=== PATIENT | female | born 1960 | race Caucasian/White ===

== ENCOUNTER 2023-01-26 13:22 | Outpatient (OUT) | payer MEDICARE, SELFPAY ==
--- NOTE | 2023-01-26 13:25 | XR_ITS ---
The [address] [address] Patient Name: AISLINN CARNES MRN: [id number] date: 1960 Sex: F Assigned Patient Location: [facility] Current Patient Location: [facility] Accession/Order Number: [id number] Exam Date: 01/26/2023 13:30 Report Date: 01/27/2023 06:59 At the request of: LISA VLEOZ Procedure: XR foot LT min 3V PROCEDURE: XR foot LT min 3V HISTORY: LEFT FOOT PAIN COMPARISON: XR foot left 01/03/2023 FINDINGS: BONES:Prior resection of first toe at level of mid metatarsal. Ongoing subacute healing fractures of the third proximal phalanx and fifth metatarsal. Slightly more chronic healing fractures involving the second, third, and fourth metatarsals at their base. Old healed fracture of the mid second metatarsal. Prior medial malleolus repair via 2 lag screws. SOFT TISSUES:No visible soft tissue swelling. EFFUSION:None visible. OTHER: Negative. IMPRESSION: 1. Multiple healing fractures which appear stable in alignment. Electronically authenticated by: THANH DELVALLE Date: 01/27/2023 06:59
== END 2023-01-26 13:23 ==
PROVIDERS: PCP Nurse Practitioner; Visit Provider Podiatrist Foot & Ankle Surgery
DX: S92.302 Fracture of unspecified metatarsal bone(s), left foot (principal)
CPT/HCPCS: 73630

== ENCOUNTER 2023-02-13 07:41 | Outpatient (OUT) | payer MEDICARE, SELFPAY ==
[2023-02-13 08:00] VITALS: BP 96/57; PULSE 70; RESP 18; TEMP 36.3; O2SAT 94
[2023-02-13 08:09] LABS: Estimated GFR (African America 35 (>=60); Estimated GFR (Non-African Ame 29 (>=60)
[2023-02-13] MEDS: 0.9 % SODIUM CHLORIDE 1,000 ML 100 ML IV (08:25)
--- NOTE | 2023-02-13 12:46 | PC.NURSE ---
Pt was here for infusion prior to her CT scan. She denies any complaints, she tolerated IV start well and tolerated fluids well without difficulty. IV was discontinued and patient discharged.
--- NOTE | 2023-02-13 14:05 | CT_ITS ---
[address] [address] Patient Name: AISLINN CARNES MRN: [id number] date: 1960 Sex: F Assigned Patient Location: LAB Current Patient Location: LAB Accession/Order Number: [id number] Exam Date: 02/13/2023 15:23 Report Date: 02/13/2023 16:43 At the request of: MONIE TAVAREZ Procedure: CT abdomen pelvis wo/w con EXAM: CT abdomen pelvis wo/w con HISTORY: Chronic kidney disease stage 3 N18.30, UTI N39.0, N20.1 COMPARISON: None. TECHNIQUE: Axial CT images were obtained of the abdomen and pelvis without and with intravenous contrast. The postcontrast images were obtained in the delayed phase. Multiplanar reconstructions were performed. ABDOMEN/PELVIS FINDINGS: Lower Chest: Unremarkable. Liver: Normal enhancement and contour. Liver is enlarged measuring 18.7 cm. Biliary/Gallbladder: Prior cholecystectomy. Pancreas: Unremarkable. Spleen: Unremarkable. Adrenal Glands: Unremarkable. Kidneys: There is a cystic lesion in the left kidney arising exophytically from the lower pole the left kidney measuring 9.4 x 6.8 cm which previously measured 7.2 x 5.8 cm. There are multiple septations throughout the lesion without appreciable enhancement or nodularity. The right kidney is malrotated. Gastrointestinal/Peritoneum: No acute abnormality. The appendix is unremarkable. No free air or free fluid. Vascular: Moderate atherosclerotic calcifications are present. Lymph Nodes: A left inguinal lymph node is enlarged measuring 1.1 cm in short axis. Pelvic Organs: Unremarkable. Bladder: Unremarkable. Bones: There is a chronic vertebral compression fracture at the superior endplate of L1. Mild multilevel degenerative changes are present in the visualized spine. Soft tissues: There is a small fat-containing right inguinal hernia. IMPRESSION: 1. A large exophytic cystic lesion arising from the lower pole the left kidney does not demonstrate internal enhancement or nodularity, Bosniak II. The lesion is slightly increased in size since the 2014 exam. 2. Mildly enlarged left inguinal lymph node, which is nonspecific, but possibly reactive. 3. Prior cholecystectomy. 4. Mild hepatomegaly. 5. Small fat-containing right inguinal hernia. 6. Chronic vertebral compression fracture at L1. Electronically authenticated by: BRENTON AYALA Date: 02/13/2023 16:43
== END 2023-02-13 07:42 | disposition home or self-care (01) ==
LOC: LAB 07:42
PROVIDERS: PCP Nurse Practitioner; Visit Provider Urology
DX: N20.1 Calculus of ureter (principal); N39.0 Urinary tract infection, site not specified; R81 Glycosuria; N28.1 Cyst of kidney, acquired; N18.32 Chronic kidney disease, stage 3b
CPT/HCPCS: 36415; 74178; 82565; Q9966

== ENCOUNTER 2023-02-14 11:06 | Outpatient (OUT) | payer MEDICARE, SELFPAY ==
--- NOTE | 2023-02-14 11:07 | XR_ITS ---
The [address] [address] Patient Name: AISLINN CARNES MRN: [id number] date: 1960 Sex: F Assigned Patient Location: [facility] Current Patient Location: [facility] Accession/Order Number: [id number] Exam Date: 02/14/2023 11:07 Report Date: 02/14/2023 14:25 At the request of: CAMMIE SEGURA Procedure: XR foot LT min 3V EXAM: XR foot LT min 3V HISTORY: LEFT FOOT PAIN COMPARISON: Left foot radiographs 01/26/2023 TECHNIQUE: 3 views of the left foot. FINDINGS: Procedure change from partial amputation of the first digit at the level of the mid metatarsal. Distal tibial screws appear grossly intact. Slight interval healing of the second proximal phalangeal fracture, with otherwise unchanged appearance of the second through fifth metatarsal fractures in unchanged alignment. No acute fractures are identified. No dislocation. Degenerative change, predominantly involves the midfoot joints. Soft tissue swelling about the visualized lower extremity, overall similar to previous exam. IMPRESSION: 1. Slight interval healing of the second proximal phalangeal fracture. 2. Unchanged appearance of the second through fifth metatarsal fractures, in unchanged alignment. Electronically authenticated by: MAR MILES Date: 02/14/2023 14:25
== END 2023-02-14 11:07 | disposition home or self-care (01) ==
PROVIDERS: PCP Nurse Practitioner; Visit Provider Physician Assistant
DX: S92.302 Fracture of unspecified metatarsal bone(s), left foot (principal)
CPT/HCPCS: 73630

== ENCOUNTER 2023-03-07 14:48 | Outpatient (OUT) | payer MEDICARE, SELFPAY ==
--- NOTE | 2023-03-07 15:05 | XR_ITS ---
[address] [address] Patient Name: AISLINN CARNES MRN: [id number] date: 1960 Sex: F Assigned Patient Location: Current Patient Location: Accession/Order Number: [id number] Exam Date: 03/07/2023 15:04 Report Date: 03/07/2023 18:47 At the request of: RAMON HUNTLEY Procedure: XR foot ALINE min 3V EXAMINATION: XR foot ALINE min 3V HISTORY: LEFT FOOT PAIN COMPARISON: 02/14/2023, 09/21/2022 FINDINGS: RIGHT FINDINGS: BONES: Normal. No significant arthropathy or acute abnormality. Mild enthesopathic spurring at the Achilles insertion. Mild degenerative change first metatarsal-phalangeal joint SOFT TISSUES: Negative. No visible soft tissue swelling. OTHER: Negative. LEFT FINDINGS: BONES: Remote resection of the first toe mid diaphysis of the metatarsal. Remote healed fracture second metatarsal. Remote fracture mid diaphysis of the fifth metatarsal with incomplete bony bridging SOFT TISSUES: Negative. No visible soft tissue swelling. OTHER: Negative. XR/XR foot ALINE min 3V IMPRESSION: RIGHT CONCLUSION: No acute abnormality LEFT CONCLUSION: Incomplete bony bridging fifth metatarsal fracture Electronically authenticated by: NUBIA NICHOLSON Date: 03/07/2023 18:47
== END 2023-03-07 14:49 | disposition home or self-care (01) ==
LOC: WC 14:48
PROVIDERS: PCP Nurse Practitioner; Visit Provider Podiatrist Foot & Ankle Surgery
DX: M79.671 Pain in right foot (principal); M79.672 Pain in left foot; E11.621 Type 2 diabetes mellitus with foot ulcer; L97.411 Non-pressure chronic ulcer of right heel and midfoot limited to breakdown of skin; L97.422 Non-pressure chronic ulcer of left heel and midfoot with fat layer exposed; S92.322D Displaced fracture of second metatarsal bone, left foot, subsequent encounter for fracture with routine healing; S92.342D Displaced fracture of fourth metatarsal bone, left foot, subsequent encounter for fracture with routine healing; M86.172 Other acute osteomyelitis, left ankle and foot; E11.69 Type 2 diabetes mellitus with other specified complication; E11.65 Type 2 diabetes mellitus with hyperglycemia; I79.8 Other disorders of arteries, 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
CPT/HCPCS: 11042; 73630

== ENCOUNTER 2023-03-15 10:55 | Outpatient (OUT) | payer MEDICARE, SELFPAY | END 2023-03-15 10:56 | disposition home or self-care (01) | LOC: WC 10:55 | PROVIDERS: PCP Nurse Practitioner; Visit Provider Podiatrist Foot & Ankle Surgery | DX: E11.621 Type 2 diabetes mellitus with foot ulcer (principal); L97.411 Non-pressure chronic ulcer of right heel and midfoot limited to breakdown of skin; L97.422 Non-pressure chronic ulcer of left heel and midfoot with fat layer exposed | CPT/HCPCS: 11042 ==

== ENCOUNTER 2023-03-21 09:24 | Outpatient (OUT) | payer MEDICARE, SELFPAY ==
[2023-03-21 09:56] LABS: Alanine Aminotransferase 16 U/L (14-59); Albumin Globulin Ratio 0.6; Albumin Level 3.1 g/dL (3.4-5.0); Alkaline Phosphatase 139 U/L (46-116); Anion Gap 12.3; Aspartate Amino Transferase 8 U/L (15-37); BUN Creatinine Ratio 17.4; Bilirubin Direct 0.1 mg/dL (0.0-0.2); Bilirubin Total 0.3 mg/dL (0.2-1.0); Calcium 9.3 mg/dL (8.5-10.1); Carbon Dioxide 26.5 mmol/L (21.0-32.0); Chloride 97 mmol/L (98-107); Estimated GFR (African America 41 (>=60); Estimated GFR (Non-African Ame 34 (>=60); Globulin 5.5 g/dL; Glucose 345 mg/dL (74-106); Potassium 4.8 mmol/L (3.5-5.1); Sodium 131 mmol/L (136-145); Total Protein 8.6 g/dL (6.4-8.2)
[2023-03-21 10:34] LABS: Estimated Average Glucose 413 mg/dL; Glycohemoglobin A1C >16.0 % (4.5-6.2)
--- NOTE | 2023-03-21 10:35 | CA_ITS ---
Patient: AISLINN CARNES Exam Date: 03/21/2023 : 1960 Gender:F Ordering : KIARA AGUSTOSahara LÓPEZ [facility] Admission #: [id number] Family : Order #: [id number] CLICK HERE TO VIEW EXAM ECHOCARDIOGRAM REPORT PROCEDURE: CA ECHO DOPPLER COMPLETE INDICATIONS: Mitral valve prolapse, Chest pain COMPARISON: None. DESCRIPTION: COMPLETE ECHOCARDIOGRAM Real-time transthoracic echocardiography with 2D, M-mode, spectral and color flow Doppler performed. QUALITY: Technical quality was good. LEFT VENTRICLE: Normal chamber size. Moderate concentric left ventricular hypertrophy. Global left ventricular systolic function is normal. LV EF: Estimated left ventricular ejection fraction is 70%. DIASTOLIC: Diastolic function is indeterminate. ATRIAL SEPTUM: LEFT ATRIUM: Mild dilatation. RIGHT ATRIUM: Normal chamber size. RIGHT VENTRICLE: Normal chamber size. Normal right ventricular systolic function. TRICUSPID VALVE: Normal mobility and thickness. No stenosis with trivial regurgitation. No evidence of pulmonary hypertension. RVSP 25 mmHg MITRAL VALVE: Normal mobility and thickness. No mitral valve prolapse. No evidence of mitral valve stenosis. There is no mitral annular calcification. Trivial mitral regurgitation. AORTIC VALVE: Normal trileaflet appearance. No visible sclerosis. Normal leaflet mobility. No evidence of aortic valve stenosis. No aortic regurgitation. AORTIC ROOT: Normal diameter and appearance. PULMONIC VALVE: Normal thickness and mobility. No stenosis. No regurgitation. PERICARDIUM: Trivial pericardial effusion. IVC: Collapses with inspirations. Normal size. PLEURA: CONCLUSION: 1. Moderate concentric left ventricular hypertrophy with normal systolic function. LVEF is 70%. 2. Normal right ventricular size and systolic function. 3. No significant valvular dysfunction. 4. No evidence of mitral valve prolapse. 5. Normal right-sided pressures. 6. Trivial pericardial effusion. Adult Echocardiography Procedure Report Left Ventricle LVEDD (3.7 - 5.6 cm): 3.53 cm LVESD (2.2 - 4.0 cm): 2.20 cm LVIVS thickness (0.6 - 1.2 cm): 1.47 cm LVPW thickness (0.5 - 1.0 cm): 1.37 cm e': 0.06 m/s E - e': 9.60 LVOT Max Gradient: 3.95 mm[Hg] LVOT Area (cm2): 0.99 m/s Peak Velocity (LVOT): 0.99 m/s Mean Velocity (LVOT): 0.72 m/s LVOT Diameter 1.72 cm Left Ventricular Ejection Fraction: 70 % Left Atrium LA Volume Index (2D A2C): 31.37 ml/m2 Left Atrium Systolic Dimension: 3.63 cm Mitral Valve MV E to A Ratio: 0.71 Mitral Valve A-Wave Peak Velocity: 0.87 m/s Mitral Valve E-Wave Peak Velocity: 0.62 m/s Right Ventricle RV Internal Diastolic Dimension: 2.76 cm Aorta AO Root Diam: 2.96 cm Ascending Ao Diam: 2.66 cm Aortic Valve AoV Area (Peak Serg): 1.48 cm2, 1.48 cm2 AoV Area (VTI): 1.44 cm2, 1.44 cm2 Peak Velocity(Antegrade Flow): 1.56 m/s Peak Gradient(Antegrade Flow): 9.71 mm[Hg] Mean Velocity(Antegrade Flow): 1.09 m/s Mean Gradient(Antegrade Flow): 5.40 mm[Hg] Velocity Time Integral: 37.54 cm Tricuspid Valve Peak Velocity (Regurgitant Flow): 1.80 m/s, 2.32 m/s Pulmonic Valve Mean Gradient: 2.41 mm[Hg], 2.39 mm[Hg] Mean Velocity: 0.74 m/s, 0.73 m/s Peak Velocity: 1.00 m/s Peak Gradient: 3.87 mm[Hg], 4.14 mm[Hg] Right Atrium Right Atrium Systolic Pressure: 26.58 ml, 26.58 ml Dictated by: Galo Young M.D. on 03/21/2023 at 14:37 Approved by: Galo Young M.D. on 03/21/2023 at 14:42
== END 2023-03-21 09:25 | disposition home or self-care (01) ==
LOC: CARD 09:28
PROVIDERS: PCP Nurse Practitioner; Visit Provider Nurse Practitioner
DX: I34.1 Nonrheumatic mitral (valve) prolapse (principal); R07.9 Chest pain, unspecified; E11.40 Type 2 diabetes mellitus with diabetic neuropathy, unspecified; B35.1 Tinea unguium
CPT/HCPCS: 36415; 80048; 80076; 83036; 93306

== ENCOUNTER 2023-03-24 09:59 | Outpatient (OUT) | payer MEDICARE, SELFPAY | END 2023-03-24 10:00 | disposition home or self-care (01) | LOC: WC 09:59 | PROVIDERS: PCP Nurse Practitioner; Visit Provider Podiatrist Foot & Ankle Surgery | DX: E11.621 Type 2 diabetes mellitus with foot ulcer (principal); L97.422 Non-pressure chronic ulcer of left heel and midfoot with fat layer exposed; L97.411 Non-pressure chronic ulcer of right heel and midfoot limited to breakdown of skin | CPT/HCPCS: 11042; A6213 ==

== ENCOUNTER 2023-03-27 08:34 | Outpatient (OUT) | payer MEDICARE, SELFPAY | END 2023-03-27 08:35 | disposition home or self-care (01) | LOC: WC 08:36 | PROVIDERS: PCP Nurse Practitioner; Visit Provider Podiatrist Foot & Ankle Surgery | DX: E11.621 Type 2 diabetes mellitus with foot ulcer (principal); L97.422 Non-pressure chronic ulcer of left heel and midfoot with fat layer exposed | CPT/HCPCS: 29445; A6021; A6213 ==

== ENCOUNTER 2023-04-04 14:27 | Outpatient (OUT) | payer MEDICARE, SELFPAY ==
--- NOTE | 2023-04-04 | XR_ITS ---
The [address] [address] Patient Name: AISLINN CARNES MRN: [id number] date: 1960 Sex: F Assigned Patient Location: Current Patient Location: Accession/Order Number: [id number] Exam Date: 04/04/2023 14:55 Report Date: 04/05/2023 05:22 At the request of: RAMON HUNTLEY Procedure: XR foot LT min 3V PROCEDURE: XR foot LT min 3V HISTORY: Left foot pain COMPARISON: XR foot left 02/14/2023 FINDINGS: BONES:Stable partial ossification, but incomplete healing of the second proximal phalanx fracture, distal fifth metatarsal fracture, and second through fourth base of metatarsal fractures. Remote, healed distal second metatarsal fracture. Prior amputation of first toe at level of mid metatarsal. Remote medial malleolus repair via 2 lag screws. SOFT TISSUES:No visible soft tissue swelling. EFFUSION:None visible. OTHER: Negative. XR/XR foot LT min 3V IMPRESSION: 1. Stable appearance of multiple fractures with incomplete osseous healing. Electronically authenticated by: THANH DELVALLE Date: 04/05/2023 05:22
== END 2023-04-04 14:28 | disposition home or self-care (01) ==
LOC: WC 14:27
PROVIDERS: PCP Nurse Practitioner; Visit Provider Podiatrist Foot & Ankle Surgery
DX: E11.621 Type 2 diabetes mellitus with foot ulcer (principal); L97.422 Non-pressure chronic ulcer of left heel and midfoot with fat layer exposed; L97.411 Non-pressure chronic ulcer of right heel and midfoot limited to breakdown of skin
CPT/HCPCS: 29445; 73630; A6213

== ENCOUNTER 2023-04-10 14:12 | Outpatient (OUT) | payer MEDICARE, SELFPAY | END 2023-04-10 14:13 | disposition home or self-care (01) | LOC: WC 14:12 | PROVIDERS: PCP Nurse Practitioner; Visit Provider Physician Assistant | DX: E11.621 Type 2 diabetes mellitus with foot ulcer (principal); L97.411 Non-pressure chronic ulcer of right heel and midfoot limited to breakdown of skin; L97.422 Non-pressure chronic ulcer of left heel and midfoot with fat layer exposed | CPT/HCPCS: 11042; 29445 ==

== ENCOUNTER 2023-04-18 10:56 | Outpatient (OUT) | payer MEDICARE, SELFPAY | END 2023-04-18 10:57 | disposition home or self-care (01) | LOC: WC 10:57 | PROVIDERS: PCP Nurse Practitioner; Visit Provider Physician Assistant | DX: E11.621 Type 2 diabetes mellitus with foot ulcer (principal); L97.422 Non-pressure chronic ulcer of left heel and midfoot with fat layer exposed; L97.411 Non-pressure chronic ulcer of right heel and midfoot limited to breakdown of skin | CPT/HCPCS: 11042; 29445 ==

== ENCOUNTER 2023-04-25 15:07 | Outpatient (OUT) | payer MEDICARE, SELFPAY | END 2023-04-25 15:08 | disposition home or self-care (01) | LOC: WC 15:08 | PROVIDERS: PCP Nurse Practitioner; Visit Provider Podiatrist Foot & Ankle Surgery | DX: E11.621 Type 2 diabetes mellitus with foot ulcer (principal); L97.411 Non-pressure chronic ulcer of right heel and midfoot limited to breakdown of skin; L97.422 Non-pressure chronic ulcer of left heel and midfoot with fat layer exposed | CPT/HCPCS: 11042 ==

== ENCOUNTER 2023-05-09 15:24 | Outpatient (OUT) | payer MEDICARE, SELFPAY ==
[2023-05-09 15:57] LABS: Anion Gap 14.8; BUN Creatinine Ratio 19.9; Calcium 8.6 mg/dL (8.5-10.1); Carbon Dioxide 22.3 mmol/L (21.0-32.0); Chloride 102 mmol/L (98-107); Estimated GFR (African America 39 (>=60); Estimated GFR (Non-African Ame 32 (>=60); Glucose 258 mg/dL (74-106); Potassium 5.1 mmol/L (3.5-5.1); Sodium 134 mmol/L (136-145)
== END 2023-05-09 15:25 | disposition home or self-care (01) ==
LOC: LAB 15:27
PROVIDERS: PCP Nurse Practitioner; Visit Provider Nurse Practitioner
DX: M81.0 Age-related osteoporosis without current pathological fracture (principal)
CPT/HCPCS: 36415; 80048

== ENCOUNTER 2023-05-10 07:37 | Outpatient (RCR) | payer MEDICARE, SELFPAY ==
[2023-05-10 09:58] VITALS: BP 193/88; PULSE 76; RESP 16; TEMP 36.2; O2SAT 99
--- NOTE | 2023-05-10 09:58 | PC.NURSE ---
0958: Pt. to [facility] amb. for Prolia injection. Seated in recliner. VSS. Denies questions regarding medication.
[2023-05-10] MEDS: DENOSUMAB 60 MG/ML SYRINGE SUBQ (10:21)
--- NOTE | 2023-05-10 10:40 | PC.NURSE ---
1021: Pt. medicated with Prolia 60mg SQ to right arm. Pt. denies c/o. Drinking juice. 1040: Pt. denies c/o adverse reaction. D/c'd amb to home.
== END 2023-05-20 23:59 | disposition home or self-care (01) ==
LOC: INF 07:37
PROVIDERS: PCP Nurse Practitioner; Visit Provider Nurse Practitioner
DX: M81.0 Age-related osteoporosis without current pathological fracture (principal)
CPT/HCPCS: 96372; J0897

== ENCOUNTER 2023-05-12 09:34 | Outpatient (OUT) | payer MEDICARE, SELFPAY | END 2023-05-12 09:35 | disposition home or self-care (01) | LOC: WC 09:35 | PROVIDERS: PCP Nurse Practitioner; Visit Provider Podiatrist Foot & Ankle Surgery | DX: E11.621 Type 2 diabetes mellitus with foot ulcer (principal); L97.411 Non-pressure chronic ulcer of right heel and midfoot limited to breakdown of skin; L97.422 Non-pressure chronic ulcer of left heel and midfoot with fat layer exposed | CPT/HCPCS: 97597 ==

== ENCOUNTER 2023-05-12 09:59 | Outpatient (OUT) | payer MEDICARE, SELFPAY ==
--- NOTE | 2023-05-12 | XR_ITS ---
The [address] [address] Patient Name: AISLINN CARNES MRN: [id number] date: 1960 Sex: F Assigned Patient Location: Current Patient Location: Accession/Order Number: [id number] Exam Date: 05/12/2023 10:05 Report Date: 05/12/2023 14:07 At the request of: RAMON HUNTLEY Procedure: XR foot LT min 3V EXAM: XR foot LT min 3V HISTORY: LEFT FOOT PAIN COMPARISON: None. TECHNIQUE: 3 views left foot. FINDINGS: Remote amputation of the first ray at the level of the first metatarsal shaft. Old chronic healed deformities of the second through fifth metatarsals and the second proximal phalanx. No acute fracture or bone destruction. No significant soft tissue swelling. Degenerative change throughout the IP joints and midfoot. Prior postoperative change at the medial malleolus. XR/XR foot LT min 3V IMPRESSION: No acute process seen. MRI could be obtained if indicated. Electronically authenticated by: FARZANA RADER Date: 05/12/2023 14:07
== END 2023-05-12 10:00 | disposition home or self-care (01) ==
PROVIDERS: PCP Nurse Practitioner; Visit Provider Podiatrist Foot & Ankle Surgery
DX: M79.672 Pain in left foot (principal)
CPT/HCPCS: 73630

== ENCOUNTER 2023-05-12 10:32 | Emergency (ER) | payer MEDICARE, SELFPAY ==
[2023-05-12 10:36] VITALS: BP 176/90; PULSE 72; RESP 18; O2SAT 99; BMI 25.8
--- NOTE | 2023-05-12 11:23 | XR_ITS ---
The [address] [address] Patient Name: AISLINN CARNES MRN: [id number] date: 1960 Sex: F Assigned Patient Location: ER Current Patient Location: ER Accession/Order Number: [id number] Exam Date: 05/12/2023 11:15 Report Date: 05/12/2023 11:53 At the request of: JE GODDARD Procedure: XR hand RT min 3V STUDY: XR hand RT min 3V, [id number] HISTORY: swelling COMPARISON: None FINDINGS: No acute fracture, dislocation, or suspicious osseous lesion. No osteolysis to suggest osteomyelitis. No soft tissue gas. No radiopaque foreign body. 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 XR/XR hand RT min 3V IMPRESSION: No acute osseous abnormality. Electronically authenticated by: KYLER PRUITT Date: 05/12/2023 11:53
[2023-05-12 11:47] VITALS: BP 156/100; PULSE 86; RESP 16; O2SAT 98
[2023-05-12] MEDS: CEFAZOLIN SODIUM 1,000 MG, WATER FOR INJECTION,STERILE 2.5 ML IM ×2 (13:30→13:32)
--- NOTE | 2023-05-12 13:40 | ED_ITS ---
HPI - General Adult General Chief complaint: Extremity Problem, Nontraumatic Stated complaint: SPIDER BITE Time Seen by Provider: 05/12/23 13:08 History of Present Illness HPI narrative: Patient is a 63-year-old female who is presenting to the Emergency Room with left 5th pinky blister that is infected. Patient woke up Monday noticing that she had a blister on the fat pad over her distal phalanx her left 5th finger there was clear/yellowish. Patient did pop the blister several times during the fluid out. The fluid had been draining throughout the day. Patient started developing redness and swelling to the middle and distal phalanx of the left 5th finger. Patient is not diabetic. Patient was cleaning out the basement Monday night, patient believes that she was bit by some type of spider possibly. Patient never saw a spider bite her. Patient never had any pain Mon night. Patient woke up Monday with a blister over the volar aspect of the distal left 5th finger. Patient denies any type of trauma. Patient denies any type of burn. Patient does have good range of motion of the left 5th finger with no pain. Patient states she broke her left 5th finger months ago, and still has slight deformity from that break, but she is noting pain today. . All systems are negative except as noted/marked. All systems reviewed and otherwise negative. . Nurses note and vital signs reviewed and patient is not hypoxic. General: The patient appears well and in no apparent distress. Patient is resting comfortably on cart. Patient is not toxic, lethargic, or listless Skin: Warm, dry, no pallor noted. There is no rash noted. No petechiae, purpura. Head: Normocephalic, atraumatic Eye: Normal conjunctiva, no drainage, EOMI. PERRL Ears, Nose, Mouth, and Throat: oral mucosa is moist. Nares patent. Mouth without vesicles. Cardiovascular: Regular Rate and Rhythm, no murmur, gallop, rub Respiratory: Patient is in no distress, no accessory muscle use, lungs are clear to auscultation, no wheezing, rales or rhonchi Musculoskeletal: Patient has full range of motion of all of the extremities, Including the left 5th pinky finger. Patient broke her finger several months ago, patient has normal range of motion today and this week, the same she had last week to her left 5th finger after her break, the range of motion is still the same today. Patient does have mild swelling to the middle and distal aspect of the left 5th finger, however she has good range of motion of the PIP and DIP joint for her normal baseline after she fractured the finger several months ago. Patient has no signs of necrosis. Patient has a blister over the fat pad of the distal aspect of the left 5th finger, volar aspect. Patient has no drainage. No palpable abscess. Patient has exposed skin with good granulation. There does appear to be an infection, but there is no [place] signs, no signs of significant joint infection, no signs of septic joint, this seems to be localized soft tissue infection and swelling. Patient again adamantly denies any type of trauma or burn to this finger. No motor, sensory, or focal neurological deficits. Neurological: A&O x3, normal speech Psychiatric: Cooperative Related Data Home Medications Medication Instructions Recorded Confirmed ferrous sulfate 325 mg (65 mg 325 mg PO QDAY 05/12/23 05/12/23 iron) tablet (FeroSul) insulin lispro 100 unit/mL subcut QID 05/12/23 subcutaneous pen metoprolol succinate 25 mg 50 mg PO Q12H 05/12/23 05/12/23 tablet,extended release 24 hr pregabalin 150 mg capsule 150 mg PO Q12H 05/12/23 05/12/23 trospium 20 mg tablet 20 mg PO Q24H 05/12/23 05/12/23 Previous Rx's Medication Instructions Recorded doxycycline hyclate 100 mg tablet 100 mg PO BID 10 days #20 tabs 05/12/23 mupirocin 2 % topical ointment 1 applic topical TID 14 days #15 05/12/23 grams Allergies Allergy/AdvReac Type Severity Reaction Status Date / Time No Known Drug Allergies Allergy Verified 05/12/23 10:35 Exam Constitutional Vital Signs, click to edit/add: Last Vital Signs Pulse 86 05/12/23 11:47 Resp 16 05/12/23 11:47 BP 156/100 H 05/12/23 11:47 Pulse Ox 98 05/12/23 11:47 O2 Del Method Room Air 05/12/23 10:36 Course Vital Signs Vital signs: Vital Signs Pulse Rate 72 05/12/23 10:36 Respiratory Rate 18 05/12/23 10:36 Blood Pressure 176/90 H 05/12/23 10:36 Pulse Oximetry 99 05/12/23 10:36 Oxygen Delivery Method Room Air 05/12/23 10:36 Pulse Rate 86 05/12/23 11:47 Respiratory Rate 16 05/12/23 11:47 Blood Pressure 156/100 H 05/12/23 11:47 Pulse Oximetry 98 05/12/23 11:47 Oxygen Delivery Method Room Air 05/12/23 10:36 Medical Decision Making MDM Narrative Medical decision making narrative: Patient was given IM injection of Ancef to be aggressive the help treat infection, patient has been noticing infection since Monday morning. Patient is not diabetic. Patient was prescribed Bactroban and doxycycline. Patient has an appointment made with orthopedic surgery at 8:30AM on Monday with Dr. Doherty. Education done on wound care at bedside. Patient's orthopedic surgery on Monday. Patient has no signs of septic joint or infected septic joint. Need IV antibiotics or hospitalization. Patient has minimal pain to the left finger. Patient has old deformity from a previous fracture in the last few months to the left finger that was never set correctly per patient history. Discharge Plan Discharge Chief Complaint: Extremity Problem, Nontraumatic Clinical Impression: Infected blister of left little finger Patient Disposition: Home, Self-Care Time of Disposition Decision: 13:19 Condition: Fair Prescriptions / Home Meds: New doxycycline hyclate 100 mg tablet 100 mg PO BID 10 Days Qty: 20 0RF mupirocin 2 % ointment 1 applic topical TID 14 Days Qty: 15 0RF No Action ferrous sulfate [FeroSul] 325 mg (65 mg iron) tablet 325 mg PO QDAY insulin lispro 100 unit/mL insulin pen SUBCUT QID metoprolol succinate 25 mg tablet extended release 24 hr 50 mg PO Q12H pregabalin 150 mg capsule 150 mg PO Q12H trospium 20 mg tablet 20 mg PO Q24H Instructions: Cellulitis (ED), Blister (ED) Additional Instructions: Use topical antibiotic ointment 3 times a day for 2 weeks. Use oral antibiotic twice a day for the next 10 days as well. Your appointment with Dr. Doherty at 0830 On Monday, May 15. Stand Alone Forms: Portal Instructions Referrals: Latosha Olmstead [Primary Care Provider] - 1 week Ion Doherty MD [Physician] - 05/15/23 8:30 am (You have a standing appointment at 8:30 on Monday at the specialty clinic at [facility]. Arrive at 815AM to start filling out paperwork in the orthopedic surgeon will see you.)
== END 2023-05-12 13:44 | disposition home or self-care (01) ==
PROVIDERS: Emergency Provider Emergency Medicine; PCP Nurse Practitioner
DX: M79.672 Pain in left foot (principal); S60.427A Blister (nonthermal) of left little finger, initial encounter; L08.9 Local infection of the skin and subcutaneous tissue, unspecified; X58.XXXA Exposure to other specified factors, initial encounter; Z79.899 Other long term (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; Z79.4 Long term (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; E11.621 Type 2 diabetes mellitus with foot ulcer; L97.411 Non-pressure chronic ulcer of right heel and midfoot limited to breakdown of skin; L97.422 Non-pressure chronic ulcer of left heel and midfoot with fat layer exposed
CPT/HCPCS: 73130; 73630; 96372; 97597; 99284

== ENCOUNTER 2023-05-30 15:46 | Outpatient (OUT) | payer MEDICARE, SELFPAY | END 2023-05-30 15:47 | disposition home or self-care (01) | LOC: WC 15:46 | PROVIDERS: PCP Nurse Practitioner; Visit Provider Podiatrist Foot & Ankle Surgery | DX: E11.621 Type 2 diabetes mellitus with foot ulcer (principal); L97.422 Non-pressure chronic ulcer of left heel and midfoot with fat layer exposed; L84 Corns and callosities; E11.65 Type 2 diabetes mellitus with hyperglycemia | CPT/HCPCS: 11042 ==

== ENCOUNTER 2023-06-14 10:17 | Outpatient (OUT) | payer MEDICARE, SELFPAY ==
[2023-06-14 10:51] LABS: Anion Gap 10.4; BUN Creatinine Ratio 22.6; Calcium 8.2 mg/dL (8.5-10.1); Carbon Dioxide 26.5 mmol/L (21.0-32.0); Chloride 100 mmol/L (98-107); Estimated GFR (African America 37 (>=60); Estimated GFR (Non-African Ame 31 (>=60); Glucose 303 mg/dL (74-106); Potassium 4.9 mmol/L (3.5-5.1); Sodium 132 mmol/L (136-145)
== END 2023-06-14 10:18 | disposition home or self-care (01) ==
LOC: LAB 10:17
PROVIDERS: PCP Nurse Practitioner; Visit Provider Nurse Practitioner
DX: E87.5 Hyperkalemia (principal)
CPT/HCPCS: 36415; 80048

== ENCOUNTER 2023-06-16 08:18 | Outpatient (OUT) | payer MEDICARE, SELFPAY ==
[2023-06-16 09:37] LABS: Creatinine Urine Random 52.44 mg/dL (20.00-300.00); Microalbum Creatinine Ratio Ur 144.9 mg/g (0.0-29.9); Microalbumin Urine Random 7.6 mg/dL (<=30.0)
[2023-06-16 11:24] LABS: Alanine Aminotransferase 16 U/L (14-59); Albumin Globulin Ratio 0.6; Albumin Level 3.1 g/dL (3.4-5.0); Alkaline Phosphatase 109 U/L (46-116); Anion Gap 14.2; Aspartate Amino Transferase 11 U/L (15-37); BUN Creatinine Ratio 22.4; Bilirubin Total 0.3 mg/dL (0.2-1.0); Calcium 8.3 mg/dL (8.5-10.1); Carbon Dioxide 24.1 mmol/L (21.0-32.0); Chloride 103 mmol/L (98-107); Chol HDL Ratio 7.8; Cholesterol 248 mg/dL (<=200); Estimated GFR (African America 38 (>=60); Estimated GFR (Non-African Ame 31 (>=60); Globulin 5.4 g/dL; Glucose 315 mg/dL (74-106); HDL Cholesterol 32 mg/dL (40-60); Potassium 5.3 mmol/L (3.5-5.1); Sodium 136 mmol/L (136-145); Total Protein 8.5 g/dL (6.4-8.2); Triglycerides 371 mg/dL (<=150); VLDL CHOLESTEROL 74.2 mg/dL
[2023-06-18 13:06] LABS: C-Peptide, Serum 5.4 ng/mL (1.1-4.4)
== END 2023-06-16 08:19 | disposition home or self-care (01) ==
LOC: LAB 08:19
PROVIDERS: PCP Nurse Practitioner
DX: E11.22 Type 2 diabetes mellitus with diabetic chronic kidney disease (principal)
CPT/HCPCS: 36415; 80053; 80061; 82043; 82570; 84681; 86341; 99999

== ENCOUNTER 2023-06-19 09:04 | Emergency (ER) | payer MEDICARE, SELFPAY ==
[2023-06-19 09:08] VITALS: BP 164/74; PULSE 97; RESP 18; TEMP 37.4; O2SAT 95; BMI 25.4
[2023-06-19 09:25] LABS: Bilirubin Urine NEGATIVE (NEGATIVE); Blood Urine SMALL (NEGATIVE); Color Urine LT. YELLOW (YELLOW); Glucose Urine UA >=1000 mg/dL (NEGATIVE); Ketones Urine NEGATIVE (NEGATIVE); Leukocyte Esterase Urine MODERATE (NEGATIVE); Nitrite Urine POSITIVE (NEGATIVE); Protein Urine TRACE mg/dL (NEG/TRACE); Urobilinogen Urine 0.2 EU/dL (0.2-1.0)
[2023-06-19 09:26] LABS: Clarity Urine SLIGHTLY CLOUDY (CLEAR); Urine Microscopic Indicated YES
[2023-06-19 09:31] LABS: Bacteria Urine LARGE #/HPF (NONE SEEN); RBC Urine 0-2 #/HPF (0-2); WBC Urine 20-50 #/HPF (NONE SEEN)
[2023-06-19 09:32] LABS: Cast Seen? NONE SEEN #/LPF (NONE SEEN); Crystals Seen? None Seen #/HPF (None Seen); Mucus Urine NONE SEEN (NONE SEEN); Squamous Epithelial Cell Urine RARE #/LPF (NONE/RARE); Urine Culture Indicated YES
--- NOTE | 2023-06-19 09:36 | ED.GENADUL1 ---
HPI - General Adult General Chief complaint: Abdominal Pain Stated complaint: NAUSEA, VOMITING, CHILLS Time Seen by Provider: 06/19/23 09:22 Source: patient Mode of arrival: walk-in History of Present Illness HPI narrative: Patient is a 63-year-old female who is presenting to the Emergency Room with nausea and vomiting started last night and a few episodes this morning. Patient states that she's been septic several times in the past and feels like she is sick. Patient has no fever, chills, no headache or neck pain. No chest pain or shortness of breath. No significant abdominal pain, mild abdominal cramping, nausea and vomiting last night and today. Patient does have some urinary frequency and urgency of mild dysuria. Approximate one month ago patient had Botox injections into her bladder by Dr. Jett to help with urinary incontinence. Patient also has a mass the size of a orange on her left kidney that she is due to have surgically removed this June [address] [facility]. Patient grandson at bedside. . All systems are negative except as noted/marked. All systems reviewed and otherwise negative. . Nurses note and vital signs reviewed and patient is not hypoxic. General: The patient appears well and in no apparent distress. Patient is resting comfortably on cart. Patient is not toxic, lethargic, or listless Skin: Warm, dry, no pallor noted. There is no rash noted. No petechiae, purpura. Head: Normocephalic, atraumatic Eye: Normal conjunctiva, no drainage, EOMI. PERRL Ears, Nose, Mouth, and Throat: oral mucosa is moist. Nares patent. Mouth without vesicles. Cardiovascular: Regular Rate and Rhythm, no murmur, gallop, rub Respiratory: Patient is in no distress, no accessory muscle use, lungs are clear to auscultation, no wheezing, rales or rhonchi Back: Minimal left paralumbar tenderness to palpation, No rash, non-tender, no CVA tenderness bilaterally to percussion. No CT LS midline pain GI: soft, mild tenderness to palpation to suprapubic Area; no tenderness to palpation, no masses appreciated. No rebound, guarding, or rigidity noted. No flank pain bilateral, No distention Musculoskeletal: Patient has full range of motion of all of the extremities, no motor, sensory, or focal neurological deficits. Neurological: A&O x3, normal speech Psychiatric: Cooperative Related Data Home Medications Medication Instructions Recorded Confirmed ferrous sulfate 325 mg (65 mg 325 mg PO QDAY 05/12/23 06/19/23 iron) tablet (FeroSul) insulin lispro 100 unit/mL 1 sliding scale dose subcut QID 05/12/23 06/19/23 subcutaneous pen metoprolol succinate 25 mg 50 mg PO Q12H 05/12/23 06/19/23 tablet,extended release 24 hr pregabalin 150 mg capsule 150 mg PO Q12H 05/12/23 06/19/23 trospium 20 mg tablet 20 mg PO Q24H 05/12/23 06/19/23 Previous Rx's Medication Instructions Recorded ondansetron 4 mg disintegrating 4 mg PO Q4H PRN nausea and 06/19/23 tablet vomiting 3 days #6 tabs sulfamethoxazole 800 1 tab PO BID 7 days #14 tabs 06/19/23 mg-trimethoprim 160 mg tablet (Bactrim DS) Allergies Allergy/AdvReac Type Severity Reaction Status Date / Time No Known Drug Allergies Allergy Verified 05/12/23 10:35 Exam Constitutional Vital Signs, click to edit/add: Last Vital Signs Temp 99.4 F 06/19/23 09:08 Pulse 97 H 06/19/23 09:08 Resp 18 06/19/23 09:08 BP 164/74 H 06/19/23 09:08 Pulse Ox 95 06/19/23 09:08 O2 Del Method Room Air 06/19/23 09:08 Course Vital Signs Vital signs: Vital Signs Temperature 99.4 F 06/19/23 09:08 Pulse Rate 97 H 06/19/23 09:08 Respiratory Rate 18 06/19/23 09:08 Blood Pressure 164/74 H 06/19/23 09:08 Pulse Oximetry 95 06/19/23 09:08 Oxygen Delivery Method Room Air 06/19/23 09:08 Temperature 99.4 F 06/19/23 09:08 Pulse Rate 97 H 06/19/23 09:08 Respiratory Rate 18 06/19/23 09:08 Blood Pressure 164/74 H 06/19/23 09:08 Pulse Oximetry 95 06/19/23 09:08 Oxygen Delivery Method Room Air 06/19/23 09:08 Medical Decision Making MDM Narrative Medical decision making narrative: Patient was given a total of 2 L of IV fluid. Patient was initially given 1 L of fluid, family request of the 2nd O fluid of patient and daughter since she is sensitive from urinary tract infection is becoming septic. Patient has no signs of sepsis on today's vital signs, or lab testing. Patient does have evidence unit tract infection. Patient was given a gram Rocephin. Patient was also given Bactrim in the Emergency Room along with a prescription for Bactrim and urine culture is ordered and reflux. Patient felt better after nausea medication. Patient was sent home with prescription for Zofran. Patient will follow-up with PCP, no questions at discharge. Patient's daughter has contacted her surgeon at the [facility] about surgery on Whether she will continue with that or not. They're waiting for phone call back. Patient feels better after Zofran and IV fluids. Lab Data Labs: Lab Results 06/19/23 06/19/23 Range/Units 09:14 09:40 WBC 4.5 (4.0-11.0) 10^3/uL RBC 4.54 (4.20-5.40) 10^6/uL Hgb 11.5 L (12.0-16.0) g/dL Hct 37.0 (36.0-48.0) % MCV 81.5 (81.0-99.0) fL MCH 25.3 L (26.7-34.0) pg MCHC 31.1 (29.9-35.2) g/dL RDW 13.9 (11.0-15.0) % Plt Count 226 (150-450) 10^3/uL MPV 10.8 (9.5-13.5) fL Seg Neuts % (Manual) 88.0 Band Neutrophils % 4.0 (0-5) % Lymphocytes % (Manual) 5.0 L (20.5-60.0) % Monocytes % (Manual) 2.0 (1.7-12.0) % Eosinophils % (Manual) 0.0 L (0.9-7.0) % Basophils % (Manual) 0.0 L (0.2-2.0) % Neutrophils # (Manual) 3.96 (1.4-6.5) 10^3/uL Band Neutrophils # 0.2 (0.0-0.3) 10^3/uL Lymphocytes # (Manual) 0.22 L (1.20-3.80) 10^3/uL Monocytes # (Manual) 0.09 L (0.30-0.80) 10^3/uL Eosinophils # (Manual) 0.00 (0.00-0.70) 10^3/uL Basophils # (Manual) 0.00 (0.00-0.10) 10^3/uL Sodium 130 L (136-145) mmol/L Potassium 5.6 H (3.5-5.1) mmol/L Chloride 99 (98-107) mmol/L Carbon Dioxide 21.5 (21.0-32.0) mmol/L Anion Gap 15.1 BUN 39.0 H (7.0-18.0) mg/dL Creatinine 1.94 H (0.55-1.02) mg/dL Est GFR ( Amer) 31 L (>=60) Est GFR (Non-Af Amer) 26 L (>=60) BUN/Creatinine Ratio 20.1 Glucose 382 H (74-106) mg/dL Lactate 0.7 (0.4-2.0) mmol/L Calcium 8.5 (8.5-10.1) mg/dL Total Bilirubin 0.5 (0.2-1.0) mg/dL AST 13 L (15-37) U/L ALT 15 (14-59) U/L Alkaline Phosphatase 107 (46-116) U/L Troponin I High Sens 5.4 (4.0-51.3) pg/mL Total Protein 8.5 H (6.4-8.2) g/dL Albumin 3.1 L (3.4-5.0) g/dL Globulin 5.4 g/dL Albumin/Globulin Ratio 0.6 Lipase 57.0 (16.0-77.0) U/L Urine Color Lt. yellow (YELLOW) Urine Clarity Slightly cloudy A (CLEAR) Urine pH 6.0 (5.0-9.0) Ur Specific [place] 1.010 (1.005-1.025) Urine Protein Trace (NEG/TRACE) mg/dL Urine Glucose (UA) >=1000 A (NEGATIVE) mg/dL Urine Ketones Negative (NEGATIVE) mg/dL Urine Occult Blood Small A (NEGATIVE) Urine Nitrite Positive A (NEGATIVE) Urine Bilirubin Negative (NEGATIVE) Urine Urobilinogen 0.2 (0.2-1.0) EU/dL Ur Leukocyte Esterase Moderate A (NEGATIVE) Urine RBC 0-2 (0-2) #/HPF Urine WBC 20-50 A (NONE SEEN) #/HPF Ur Squamous Epith Cells Rare (NONE/RARE) #/LPF Urine Crystals None seen (None Seen) #/HPF Urine Bacteria Large A (NONE SEEN) #/HPF Urine Casts None seen (NONE SEEN) #/LPF Urine Mucus None seen (NONE SEEN) Ur Culture Indicated? Yes Discharge Plan Discharge Chief Complaint: Abdominal Pain Clinical Impression: Acute UTI, Dehydration, Nausea & vomiting, Chronic renal insufficiency Patient Disposition: Home, Self-Care Condition: Fair Prescriptions / Home Meds: New sulfamethoxazole-trimethoprim [Bactrim DS] 800-160 mg tablet 1 tab PO BID 7 Days Qty: 14 0RF ondansetron 4 mg tablet,disintegrating 4 mg PO Q4H PRN (Reason: nausea and vomiting) 3 Days Qty: 6 0RF No Action ferrous sulfate [FeroSul] 325 mg (65 mg iron) tablet 325 mg PO QDAY insulin lispro 100 unit/mL insulin pen 1 sliding scale dose SUBCUT QID metoprolol succinate 25 mg tablet extended release 24 hr 50 mg PO Q12H pregabalin 150 mg capsule 150 mg PO Q12H trospium 20 mg tablet 20 mg PO Q24H Instructions: Dehydration (ED), Urinary Tract Infection in Women (ED), Chronic Kidney Disease (ED), Acute Nausea and Vomiting (ED) Additional Instructions: Continue antibiotics and finished them. Increase fluids at home. Follow-up with your surgeon on whether he will have surgery on or not. Follow-up with your PCP as needed. Stand Alone Forms: Portal Instructions Referrals: Latosha Olmstead NP [Primary Care Provider] - 1 week
[2023-06-19 09:46] LABS: Hemoglobin 11.5 g/dL (12.0-16.0); Mean Corpuscular HGB Conc 31.1 g/dL (29.9-35.2); Mean Corpuscular Hemoglobin 25.3 pg (26.7-34.0); Mean Corpuscular Volume 81.5 fL (81.0-99.0); Mean Platelet Volume 10.8 fL (9.5-13.5); Platelet Count 226 10^3/uL (150-450); Red Blood Count 4.54 10^6/uL (4.20-5.40); Red Cell Distribution Width 13.9 % (11.0-15.0); White Blood Count 4.5 10^3/uL (4.0-11.0)
[2023-06-19] MEDS: 0.9 % SODIUM CHLORIDE 1,000 ML 1000 ML IV (09:46)
[2023-06-19] MEDS: ONDANSETRON PF 4 MG/2 ML VIAL IV (09:47)
[2023-06-19 10:07] LABS: Lactate/Lactic Acid 0.7 mmol/L (0.4-2.0)
[2023-06-19 10:14] LABS: Alanine Aminotransferase 15 U/L (14-59); Albumin Globulin Ratio 0.6; Albumin Level 3.1 g/dL (3.4-5.0); Alkaline Phosphatase 107 U/L (46-116); Anion Gap 15.1; Aspartate Amino Transferase 13 U/L (15-37); BUN Creatinine Ratio 20.1; Bilirubin Total 0.5 mg/dL (0.2-1.0); Calcium 8.5 mg/dL (8.5-10.1); Carbon Dioxide 21.5 mmol/L (21.0-32.0); Chloride 99 mmol/L (98-107); Estimated GFR (African America 31 (>=60); Estimated GFR (Non-African Ame 26 (>=60); Globulin 5.4 g/dL; Glucose 382 mg/dL (74-106); Potassium 5.6 mmol/L (3.5-5.1); Sodium 130 mmol/L (136-145); Total Protein 8.5 g/dL (6.4-8.2); Troponin I High Sensitivity 5.4 pg/mL (4.0-51.3)
[2023-06-19] MEDS: 0.9 % SODIUM CHLORIDE 1,000 ML 100 ML IV (10:36)
[2023-06-19] MEDS: CEFTRIAXONE 1,000 MG in 0.9 % SODIUM CHLORIDE 50 ML 100 MG IV (10:39)
[2023-06-19 11:02] LABS: Band Neutrophils Absolute 0.2 10^3/uL (0.0-0.3); Lymphocytes Absolute Manual 0.22 10^3/uL (1.20-3.80); Monocytes Absolute Manual 0.09 10^3/uL (0.30-0.80); Segmented Neut Absolute Manual 3.96 10^3/uL (1.4-6.5)
[2023-06-19] MEDS: SULFAMETHOXAZOLE/TRIMETHOPRIM 800-160 MG TABLET 1 TAB PO (11:41)
== END 2023-06-19 11:53 | disposition home or self-care (01) ==
PROVIDERS: Emergency Provider Emergency Medicine; PCP Nurse Practitioner
DX: N39.0 Urinary tract infection, site not specified (principal); E86.0 Dehydration; R11.2 Nausea with vomiting, unspecified; N28.9 Disorder of kidney and ureter, unspecified; Z79.899 Other long term (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; Z79.4 Long term (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
CPT/HCPCS: 36415; 80053; 81001; 83605; 83690; 84484; 85027; 87086; 87150; 87186; 96361; 96365; 96375; 99284

== ENCOUNTER 2023-06-24 02:08 | Emergency (ER) | payer MEDICARE, SELFPAY ==
[2023-06-24 02:09] VITALS: BP 173/82; PULSE 89; RESP 16; TEMP 36.9; O2SAT 96; BMI 24.6
[2023-06-24 02:15] VITALS: BP 170/94
--- NOTE | 2023-06-24 02:20 | ED_ITS ---
HPI - Abdominal Pain General Chief Complaint: Abdominal Pain Stated Complaint: ADB PAIN Time Seen by Provider: 06/24/23 02:16 Source: patient Mode of arrival: ambulance Limitations: no limitations History of Present Illness HPI narrative: 63-year-old female presents for abdominal pain going into her flank area. On June 22 she had a cyst removed from her kidney by laparoscope in [place] and she went home on June 23 and got home about six hours ago. She was having pain and called the paramedics and they gave her some Toradol and she feels somewhat better. No injury or fever or vomiting. She rates the pain as a five now and it's continuous. Related Data Home Medications Medication Instructions Recorded Confirmed ferrous sulfate 325 mg (65 mg 325 mg PO QDAY 05/12/23 06/24/23 iron) tablet (FeroSul) insulin lispro 100 unit/mL 1 sliding scale dose subcut QID 05/12/23 06/24/23 subcutaneous pen metoprolol succinate 25 mg 50 mg PO Q12H 05/12/23 06/24/23 tablet,extended release 24 hr pregabalin 150 mg capsule 150 mg PO Q12H 05/12/23 06/24/23 Previous Rx's Medication Instructions Recorded ondansetron 4 mg disintegrating 4 mg PO Q4H PRN nausea and 06/19/23 tablet vomiting 3 days #6 tabs oxycodone-acetaminophen 5 mg-325 1 tab PO Q6H PRN pain 4 days #10 06/24/23 mg tablet (Percocet) tabs Allergies Allergy/AdvReac Type Severity Reaction Status Date / Time latex Allergy Unknown Verified 06/24/23 02:12 Review of Systems ROS Narrative A ten point review of systems is negative except as noted above. PFSH PFSH Social History Smoking status: Never smoker Exam Narrative Exam Narrative: Nurses note and vital signs reviewed and patient is not hypoxic. General: The patient appears well and in no apparent distress. Patient is resting comfortably on cart. Skin: Warm, dry, no pallor noted. There is no rash noted. Head: Normocephalic, atraumatic Eye: Normal conjunctiva, no drainage Ears, Nose, Mouth, and Throat: oral mucosa is moist. Nares patent. Cardiovascular: Regular Rate and Rhythm Respiratory: Patient is in no distress, no accessory muscle use, lungs are clear to auscultation, no wheezing, rales or rhonchi Back: non-tender GI: healing surgical wounds present. No erythema or dehiscence Musculoskeletal: The patient has no evidence of calf tenderness, no pitting edema, symmetrical pulses noted bilaterally Neurological: A&O, normal speech Psychiatric: Cooperative Constitutional Vital Signs, click to edit/add: Last Vital Signs Temp 98.5 F 06/24/23 02:09 Pulse 89 06/24/23 02:09 Resp 16 06/24/23 02:09 BP 173/82 H 06/24/23 02:09 Pulse Ox 96 06/24/23 02:09 O2 Del Method Room Air 06/24/23 02:09 Course Vital Signs Vital signs: Vital Signs Temperature 98.5 F 06/24/23 02:09 Pulse Rate 89 06/24/23 02:09 Respiratory Rate 16 06/24/23 02:09 Blood Pressure 173/82 H 06/24/23 02:09 Pulse Oximetry 96 06/24/23 02:09 Oxygen Delivery Method Room Air 06/24/23 02:09 Temperature 98.5 F 06/24/23 02:09 Pulse Rate 89 06/24/23 02:09 Respiratory Rate 16 06/24/23 02:09 Blood Pressure 173/82 H 06/24/23 02:09 Pulse Oximetry 96 06/24/23 02:09 Oxygen Delivery Method Room Air 06/24/23 02:09 MDM - Abdominal Pain MDM Narrative Medical decision making narrative: her workup is negative. She's feeling improved after being given IV morphine here and is sent home with a prescription for ten Percocet. She'll follow-up with her surgeon. Treatment diagnosis and follow-up were discussed with the patient. Differential Diagnosis Differential diagnosis: Likely abdominal pain, constipation, diverticulitis and gastroenteritis Lab Data Attestation: I reviewed the patient's lab results. Labs: Lab Results 06/24/23 Range/Units 02:13 WBC 11.6 H (4.0-11.0) 10^3/uL RBC 3.96 L (4.20-5.40) 10^6/uL Hgb 10.1 L (12.0-16.0) g/dL Hct 32.8 L (36.0-48.0) % MCV 82.8 (81.0-99.0) fL MCH 25.5 L (26.7-34.0) pg MCHC 30.8 (29.9-35.2) g/dL RDW 14.5 (11.0-15.0) % Plt Count 282 (150-450) 10^3/uL MPV 10.9 (9.5-13.5) fL Neut % (Auto) 79.3 H (43.0-75.0) % Lymph % (Auto) 13.0 L (20.5-60.0) % [place] % (Auto) 6.4 (1.7-12.0) % Eos % (Auto) 0.4 L (0.9-7.0) % Baso % (Auto) 0.2 (0.2-2.0) % Neut # (Auto) 9.2 H (1.4-6.5) 10^3/uL Lymph # (Auto) 1.5 (1.2-3.8) 10^3/uL [place] # (Auto) 0.7 (0.3-0.8) 10^3/uL Eos # (Auto) 0.1 (0.0-0.7) 10^3/uL Baso # (Auto) 0.0 (0.0-0.1) 10^3/uL Abs Immat Gran (auto) 0.08 H (0.00-0.03) 10^3/uL Imm/Tot Granulo (auto) 0.7 H (0.0-0.5) % Sodium 127 L (136-145) mmol/L Potassium 5.8 H (3.5-5.1) mmol/L Chloride 101 (98-107) mmol/L Carbon Dioxide 20.9 L (21.0-32.0) mmol/L Anion Gap 10.9 BUN 34.0 H (7.0-18.0) mg/dL Creatinine 2.10 H (0.55-1.02) mg/dL Est GFR ( Amer) 29 L (>=60) Est GFR (Non-Af Amer) 24 L (>=60) BUN/Creatinine Ratio 16.2 Glucose 407 H (74-106) mg/dL Calcium 8.1 L (8.5-10.1) mg/dL Discharge Plan Discharge Chief Complaint: Abdominal Pain Clinical Impression: Post-operative pain Patient Disposition: Home, Self-Care Time of Disposition Decision: 02:55 Condition: Good Mode of Transportation: Private Vehicle Prescriptions / Home Meds: New oxycodone-acetaminophen [Percocet] 5-325 mg tablet 1 tab PO Q6H PRN (Reason: pain) 4 Days Qty: 10 0RF No Action ferrous sulfate [FeroSul] 325 mg (65 mg iron) tablet 325 mg PO QDAY insulin lispro 100 unit/mL insulin pen 1 sliding scale dose SUBCUT QID metoprolol succinate 25 mg tablet extended release 24 hr 50 mg PO Q12H pregabalin 150 mg capsule 150 mg PO Q12H ondansetron 4 mg tablet,disintegrating 4 mg PO Q4H PRN (Reason: nausea and vomiting) 3 Days Qty: 6 0RF Instructions: Opioid Safety (ED), Pain Management After Surgery (DC) Stand Alone Forms: Portal Instructions Referrals: Latosha Olmstead NP [Primary Care Provider] - 1 week
[2023-06-24 02:27] LABS: Basophils Percent Auto 0.2 % (0.2-2.0); Eosinophils Absolute Auto 0.1 10^3/uL (0.0-0.7); Eosinophils Percent Auto 0.4 % (0.9-7.0); Hematocrit 32.8 % (36.0-48.0); Hemoglobin 10.1 g/dL (12.0-16.0); Immature Granulocytes Abs Auto 0.08 10^3/uL (0.00-0.03); Immature Granulocytes Pct Auto 0.7 % (0.0-0.5); Lymphocytes Absolute Auto 1.5 10^3/uL (1.2-3.8); Mean Corpuscular HGB Conc 30.8 g/dL (29.9-35.2); Mean Corpuscular Hemoglobin 25.5 pg (26.7-34.0); Mean Corpuscular Volume 82.8 fL (81.0-99.0); Mean Platelet Volume 10.9 fL (9.5-13.5); Monocytes Absolute Auto 0.7 10^3/uL (0.3-0.8); Monocytes Percent Auto 6.4 % (1.7-12.0); Neutrophils Absolute Auto 9.2 10^3/uL (1.4-6.5); Neutrophils Percent Auto 79.3 % (43.0-75.0); Platelet Count 282 10^3/uL (150-450); Red Blood Count 3.96 10^6/uL (4.20-5.40); Red Cell Distribution Width 14.5 % (11.0-15.0); White Blood Count 11.6 10^3/uL (4.0-11.0)
[2023-06-24] MEDS: ONDANSETRON PF 4 MG/2 ML VIAL IV (02:29)
[2023-06-24] MEDS: MORPHINE SULFATE 4 MG/ML VIAL IV (02:29)
[2023-06-24 02:30] VITALS: BP 171/95; O2SAT 97
[2023-06-24 02:31] LABS: Anion Gap 10.9; BUN Creatinine Ratio 16.2; Calcium 8.1 mg/dL (8.5-10.1); Carbon Dioxide 20.9 mmol/L (21.0-32.0); Chloride 101 mmol/L (98-107); Estimated GFR (African America 29 (>=60); Estimated GFR (Non-African Ame 24 (>=60); Glucose 407 mg/dL (74-106); Potassium 5.8 mmol/L (3.5-5.1); Sodium 127 mmol/L (136-145)
== END 2023-06-24 05:06 | disposition home or self-care (01) ==
PROVIDERS: Emergency Provider Emergency Medicine; PCP Nurse Practitioner
DX: G89.18 Other acute postprocedural pain (principal); R10.9 Unspecified abdominal pain; Z79.899 Other long term (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; Z79.4 Long term (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
CPT/HCPCS: 36415; 80048; 85025; 96374; 96375; 99284

== ENCOUNTER 2023-07-07 09:14 | Emergency (ER) | payer MEDICARE, SELFPAY ==
[2023-07-07] VITALS (25 sets, daily range): BP systolic 141–168; BP diastolic 79–118; PULSE 74–83; RESP 16–19; TEMP 36.7; O2SAT 80–98; BMI 28.4
[2023-07-07 09:45] LABS: Glucometer 402 mg/dL (74-106)
--- NOTE | 2023-07-07 09:57 | XR_ITS ---
The [address] [address] Patient Name: AISLINN CARNES MRN: [id number] date: 1960 Sex: F Assigned Patient Location: ER Current Patient Location: ER Accession/Order Number: [id number] Exam Date: 07/07/2023 10:08 Report Date: 07/07/2023 10:40 At the request of: KRISTINE ELLIOTT Procedure: XR chest 1V EXAM: XR chest 1V HISTORY: syncope COMPARISON: None. TECHNIQUE: AP view of the chest. FINDINGS: The cardiomediastinal silhouette is normal. The lungs are clear. There is no pneumothorax. No pleural effusion is noted. The osseous structures are intact. XR/XR chest 1V IMPRESSION: No acute cardiopulmonary process. Electronically authenticated by: CHRIS TEJEDA Date: 07/07/2023 10:40
--- NOTE | 2023-07-07 09:57 | ECG_ITS ---
The [facility] Test Date: 2023-07-07 Pat Name: AISLINN CARNES Department: Room: - Gender: Female Process Checker: : 1960 Requested By: AGUSTO LÓPEZ Order Number: [id number] Reading MD: MACK RAMSAY Measurements Intervals [place] Rate: 83 P: 57 KS: 162 QRS: 81 QRSD: 72 T: 32 QT: 372 QTc: 412 Interpretive Statements 1100 Sinus rhythm 9110 normal ECG No previous ECG available for comparison Electronically Signed On 07-09-2023 19:29:20 EST by MACK RAMSAY
--- NOTE | 2023-07-07 09:58 | CT_ITS ---
The [address] [address] Patient Name: AISLINN CARNES MRN: [id number] date: 1960 Sex: F Assigned Patient Location: ER Current Patient Location: ER Accession/Order Number: [id number] Exam Date: 07/07/2023 10:08 Report Date: 07/07/2023 10:34 At the request of: KRISTINE ELLIOTT Procedure: CT head/brain wo con CT head/brain wo con, 07/07/2023 10:08 AM EST INDICATION: Syncope COMPARISON: Noncontrast CT of the head 06/10/2022, 11/03/2020 TECHNIQUE: Axial CT images of the brain from skull base to vertex, including portions of the face and sinuses, were obtained without contrast. Multiplanar reformatted images were generated and reviewed as needed. Dose reduction techniques were achieved by using automated exposure control and/or adjustment of mA and/or kV according to patient size and/or use of iterative reconstruction technique. FINDINGS: No intracranial mass, hydrocephalus, midline shift or acute hemorrhage. No extra-axial collection. Periventricular and deep white matter microvascular ischemic change. [place]-white matter differentiation is preserved. Remote lacunar infarct right basal ganglia and left [place] radiata. The paranasal sinuses and mastoid air cells are clear. Orbits are within normal limits. No acute skull fracture. CT/CT head/brain wo con IMPRESSION: No acute intracranial abnormality. Electronically authenticated by: ELLIS LANDAVERDE Date: 07/07/2023 10:34
[2023-07-07 10:03] LABS: Basophils Percent Auto 0.4 % (0.2-2.0); Eosinophils Percent Auto 0.3 % (0.9-7.0); Hematocrit 30.9 % (36.0-48.0); Hemoglobin 9.6 g/dL (12.0-16.0); Immature Granulocytes Abs Auto 0.05 10^3/uL (0.00-0.03); Immature Granulocytes Pct Auto 0.5 % (0.0-0.5); Lymphocytes Absolute Auto 1.3 10^3/uL (1.2-3.8); Lymphocytes Percent Auto 12.4 % (20.5-60.0); Mean Corpuscular HGB Conc 31.1 g/dL (29.9-35.2); Mean Corpuscular Hemoglobin 24.7 pg (26.7-34.0); Mean Corpuscular Volume 79.6 fL (81.0-99.0); Monocytes Absolute Auto 0.6 10^3/uL (0.3-0.8); Monocytes Percent Auto 5.5 % (1.7-12.0); Neutrophils Absolute Auto 8.8 10^3/uL (1.4-6.5); Neutrophils Percent Auto 80.9 % (43.0-75.0); Platelet Count 398 10^3/uL (150-450); Red Blood Count 3.88 10^6/uL (4.20-5.40); Red Cell Distribution Width 13.6 % (11.0-15.0); White Blood Count 10.9 10^3/uL (4.0-11.0)
--- NOTE | 2023-07-07 10:04 | ED.SYNCOPE1 ---
HPI - Syncope General Chief Complaint: Syncope Stated Complaint: SYNCOPE Time Seen by Provider: 07/07/23 09:27 Source: patient Mode of arrival: walk-in Limitations: no limitations History of Present Illness HPI narrative: Patient woke, sat up to get out of bed and then woke on the floor. She said that she passed out and had LOC. She has been ill for about 8 days with nasal congestion, runny nose and cough. No sore throat or ear pain. She denied any dizziness before or after the syncopal event. No GI or symptoms. She denied any chest pain or shortness of breath. She was able to get up unassisted. She denied any neck, back, torso or extremity pain or injury. Her blood glucose was found to be over 400 - she told us that her sugars are always that high in the morning . She said that she takes long-acting insulin in the evening and supplements with sliding scale throughout the day. She said that she saw her PCP and was diagnosed with cold last week. No meds prescribed and no testing done, per patient. She had a mass removed from her left kidney on 06/22/23 at [facility]. She said that she initially had some post-op pain, came to the ED, got treated and has been doing well since. Related Data Home Medications Medication Instructions Recorded Confirmed ferrous sulfate 325 mg (65 mg 325 mg PO QDAY 05/12/23 07/07/23 iron) tablet (FeroSul) insulin lispro 100 unit/mL 1 sliding scale dose subcut QID 05/12/23 07/07/23 subcutaneous pen pregabalin 150 mg capsule 150 mg PO Q8H 05/12/23 07/07/23 hydrocodone 7.5 mg-acetaminophen 1 tab PO Q8H PRN pain 07/07/23 07/07/23 325 mg tablet insulin glargine 100 unit/mL (3 25 unit subcut QPM 07/07/23 07/07/23 mL) subcutaneous pen (Lantus Solostar U-100 Insulin) Previous Rx's Medication Instructions Recorded ondansetron 4 mg disintegrating 4 mg PO Q4H PRN nausea and 06/19/23 tablet vomiting 3 days #6 tabs ciprofloxacin HCl 500 mg tablet 500 mg PO BID #5 tabs 07/07/23 (Cipro) Allergies Allergy/AdvReac Type Severity Reaction Status Date / Time latex Allergy Unknown Verified 06/24/23 02:12 [facility] Social History Smoking status: Never smoker Exam Narrative Exam Narrative: Nurses notes and vital signs reviewed and patient is not hypoxic. afebrile General: Well-appearing and in no apparent distress. Skin: Warm, dry, no pallor noted. No rash. Head: Normocephalic, atraumatic. Neck: Supple, non-tender. no lymphadenopathy or meningismus. Eye: Pupils are equal, round and EOMI. No scleral icterus. no nystagmus. Ears, Nose, Mouth, and Throat: TM are clear, mild nasal mucosal hypertrophy. Oral mucosa is moist, mild posterior oropharynx erythema, uvula is mid-line Cardiovascular: Regular Rate and Rhythm without murmur, gallop or rub. Respiratory: No accessory muscle use or respiratory distress. Lungs are clear to auscultation, no wheezing, rales or rhonchi Chest Wall: no tenderness, crepitus or subcutaneous emphysema Back: No midline thoracic or lumbar vertebral tenderness. No CVA tenderness Musculoskeletal: normal ROM, no calf or popliteal tenderness, no lower extremity edema/swelling GI: Abdomen is soft, non-distended. Normal bowel sounds. Mild tenderness to palpation at the surgical incision sites. No rebound, guarding, or rigidity noted. Neurological: A&O x4. No cranial nerve dysfunction observed. No truncal ataxia. Moves all extremities. Sensation intact. Psychiatric: Cooperative and interactive. Normal mood and affect. Constitutional Vital Signs, click to edit/add: Last Vital Signs Temp 98.1 F 07/07/23 09:19 Pulse 81 07/07/23 11:17 Resp 18 07/07/23 10:40 BP 168/99 H 07/07/23 11:17 Pulse Ox 80 L 07/07/23 11:17 Course Vital Signs Vital signs: Vital Signs Temperature 98.1 F 07/07/23 09:19 Pulse Rate 83 07/07/23 09:19 Respiratory Rate 18 07/07/23 09:19 Blood Pressure 141/79 07/07/23 09:19 Pulse Oximetry 97 07/07/23 09:19 Temperature 98.1 F 07/07/23 09:19 Pulse Rate 81 07/07/23 11:17 Respiratory Rate 18 07/07/23 10:40 Blood Pressure 168/99 H 07/07/23 11:17 Pulse Oximetry 80 L 07/07/23 11:17 MDM - Syncope MDM Narrative Medical decision making narrative: Patient was placed on etymology teacher and EKG obtained. Blood drawn and sent for evaluation. urine also ordered to be obtained and sent for testing. She was sent for noncontrast CT scan of the brain and had CXR. She received a liter of NS IVF and was gave her 15 units regular insulin SQ. Normal WBC but left shift noted. She has anemia - Hb 9.6, Hct 30.9. UA - cloudy urine with blood and Leuk Est, 20-50 WBC, Large Bact. UCx pending. Negative covid. Negative acetone. CXR and head CT unremarkable. Patient started on Cipro for her UTI. She felt better after ED treatment. Repeat glucose 1hr after insulin was 304. Patient discharged home. Lab Data Attestation: I reviewed the patient's lab results. Labs: Lab Results 07/07/23 07/07/23 07/07/23 Range/Units 09:44 09:48 10:05 WBC 10.9 (4.0-11.0) 10^3/uL RBC 3.88 L (4.20-5.40) 10^6/uL Hgb 9.6 L (12.0-16.0) g/dL Hct 30.9 L (36.0-48.0) % MCV 79.6 L (81.0-99.0) fL MCH 24.7 L (26.7-34.0) pg MCHC 31.1 (29.9-35.2) g/dL RDW 13.6 (11.0-15.0) % Plt Count 398 (150-450) 10^3/uL MPV 11.0 (9.5-13.5) fL Neut % (Auto) 80.9 H (43.0-75.0) % Lymph % (Auto) 12.4 L (20.5-60.0) % [place] % (Auto) 5.5 (1.7-12.0) % Eos % (Auto) 0.3 L (0.9-7.0) % Baso % (Auto) 0.4 (0.2-2.0) % Neut # (Auto) 8.8 H (1.4-6.5) 10^3/uL Lymph # (Auto) 1.3 (1.2-3.8) 10^3/uL [place] # (Auto) 0.6 (0.3-0.8) 10^3/uL Eos # (Auto) 0.0 (0.0-0.7) 10^3/uL Baso # (Auto) 0.0 (0.0-0.1) 10^3/uL Abs Immat Gran (auto) 0.05 H (0.00-0.03) 10^3/uL Imm/Tot Granulo (auto) 0.5 (0.0-0.5) % Sodium 131 L (136-145) mmol/L Potassium 6.0 H (3.5-5.1) mmol/L Chloride 99 (98-107) mmol/L Carbon Dioxide 22.0 (21.0-32.0) mmol/L Anion Gap 16.0 BUN 35.0 H (7.0-18.0) mg/dL Creatinine 2.13 H (0.55-1.02) mg/dL Est GFR ( Amer) 28 L (>=60) Est GFR (Non-Af Amer) 23 L (>=60) BUN/Creatinine Ratio 16.4 Glucose 389 H (74-106) mg/dL Calcium 7.5 L (8.5-10.1) mg/dL Magnesium 2.0 (1.8-2.4) mg/dL Total Bilirubin 0.3 (0.2-1.0) mg/dL AST 13 L (15-37) U/L ALT 15 (14-59) U/L Alkaline Phosphatase 115 (46-116) U/L Troponin I High Sens <4.0 L (4.0-51.3) pg/mL Total Protein 7.8 (6.4-8.2) g/dL Albumin 2.3 L (3.4-5.0) g/dL Globulin 5.5 g/dL Albumin/Globulin Ratio 0.4 Urine Color Lt yellow (YELLOW) Urine Clarity Cloudy A (CLEAR) Urine pH 5.5 (5.0-9.0) Ur Specific [place] 1.020 (1.005-1.025) Urine Protein 100 A (NEG/TRACE) mg/dL Urine Glucose (UA) 500 A (NEGATIVE) mg/dL Urine Ketones Negative (NEGATIVE) mg/dL Urine Occult Blood Moderate A (NEGATIVE) Urine Nitrite Negative (NEGATIVE) Urine Bilirubin Negative (NEGATIVE) Urine Urobilinogen 0.2 (0.2-1.0) EU/dL Ur Leukocyte Esterase Moderate A (NEGATIVE) Urine RBC 10-20 A (0-2) #/HPF Urine WBC 20-50 A (NONE SEEN) #/HPF Ur Squamous Epith Cells Few A (NONE/RARE) #/LPF Ur Transition Epith Cell Rare A (NONE SEEN) #/LPF Urine Crystals None seen (None Seen) #/HPF Urine Bacteria Moderate A (NONE SEEN) #/HPF Urine Casts None seen (NONE SEEN) #/LPF Urine Mucus None seen (NONE SEEN) Ur Culture Indicated? Yes Acetone, Qual Negative (NEGATIVE) SARS-CoV-2 (PCR) Negative (NEGATIVE) POC Glucose 402 H (74-106) mg/dL 07/07/23 Range/Units 12:11 WBC (4.0-11.0) 10^3/uL RBC (4.20-5.40) 10^6/uL Hgb (12.0-16.0) g/dL Hct (36.0-48.0) % MCV (81.0-99.0) fL MCH (26.7-34.0) pg MCHC (29.9-35.2) g/dL RDW (11.0-15.0) % Plt Count (150-450) 10^3/uL MPV (9.5-13.5) fL Neut % (Auto) (43.0-75.0) % Lymph % (Auto) (20.5-60.0) % [place] % (Auto) (1.7-12.0) % Eos % (Auto) (0.9-7.0) % Baso % (Auto) (0.2-2.0) % Neut # (Auto) (1.4-6.5) 10^3/uL Lymph # (Auto) (1.2-3.8) 10^3/uL [place] # (Auto) (0.3-0.8) 10^3/uL Eos # (Auto) (0.0-0.7) 10^3/uL Baso # (Auto) (0.0-0.1) 10^3/uL Abs Immat Gran (auto) (0.00-0.03) 10^3/uL Imm/Tot Granulo (auto) (0.0-0.5) % Sodium (136-145) mmol/L Potassium (3.5-5.1) mmol/L Chloride (98-107) mmol/L Carbon Dioxide (21.0-32.0) mmol/L Anion Gap BUN (7.0-18.0) mg/dL Creatinine (0.55-1.02) mg/dL Est GFR ( Amer) (>=60) Est GFR (Non-Af Amer) (>=60) BUN/Creatinine Ratio Glucose (74-106) mg/dL Calcium (8.5-10.1) mg/dL Magnesium (1.8-2.4) mg/dL Total Bilirubin (0.2-1.0) mg/dL AST (15-37) U/L ALT (14-59) U/L Alkaline Phosphatase (46-116) U/L Troponin I High Sens (4.0-51.3) pg/mL Total Protein (6.4-8.2) g/dL Albumin (3.4-5.0) g/dL Globulin g/dL Albumin/Globulin Ratio Urine Color (YELLOW) Urine Clarity (CLEAR) Urine pH (5.0-9.0) Ur Specific [place] (1.005-1.025) Urine Protein (NEG/TRACE) mg/dL Urine Glucose (UA) (NEGATIVE) mg/dL Urine Ketones (NEGATIVE) mg/dL Urine Occult Blood (NEGATIVE) Urine Nitrite (NEGATIVE) Urine Bilirubin (NEGATIVE) Urine Urobilinogen (0.2-1.0) EU/dL Ur Leukocyte Esterase (NEGATIVE) Urine RBC (0-2) #/HPF Urine WBC (NONE SEEN) #/HPF Ur Squamous Epith Cells (NONE/RARE) #/LPF Ur Transition Epith Cell (NONE SEEN) #/LPF Urine Crystals (None Seen) #/HPF Urine Bacteria (NONE SEEN) #/HPF Urine Casts (NONE SEEN) #/LPF Urine Mucus (NONE SEEN) Ur Culture Indicated? Acetone, Qual (NEGATIVE) SARS-CoV-2 (PCR) (NEGATIVE) POC Glucose 304 H (74-106) mg/dL Imaging Data CT scan - head: Attestation: I have reviewed the pertinent imaging results. Radiologist's impression: Patient Name: AISLINN CARNES MRN: [id number] date: 1960 Sex: F Assigned Patient Location: ER Current Patient Location: ER Accession/Order Number: [id number] Exam Date: 07/07/2023 10:08 Report Date: 07/07/2023 10:34 At the request of: KRISTINE ELLIOTT Procedure: CT head/brain wo con CT head/brain wo con, 07/07/2023 10:08 AM EST INDICATION: Syncope COMPARISON: Noncontrast CT of the head 06/10/2022, 11/03/2020 TECHNIQUE: Axial CT images of the brain from skull base to vertex, including portions of the face and sinuses, were obtained without contrast. Multiplanar reformatted images were generated and reviewed as needed. Dose reduction techniques were achieved by using automated exposure control and/or adjustment of mA and/or kV according to patient size and/or use of iterative reconstruction technique. FINDINGS: No intracranial mass, hydrocephalus, midline shift or acute hemorrhage. No extra-axial collection. Periventricular and deep white matter microvascular ischemic change. Hopkins-white matter differentiation is preserved. Remote lacunar infarct right basal ganglia and left hampton radiata. The paranasal sinuses and mastoid air cells are clear. Orbits are within normal limits. No acute skull fracture. IMPRESSION: No acute intracranial abnormality. Electronically authenticated by: ELLIS LANDAVERDE Date: 07/07/2023 10:34 Chest x-ray: Attestation: I have reviewed the pertinent imaging results. Radiologist's impression: Patient Name: AISLINN CARNES MRN: [id number] date: 1960 Sex: F Assigned Patient Location: ER Current Patient Location: ER Accession/Order Number: [id number] Exam Date: 07/07/2023 10:08 Report Date: 07/07/2023 10:40 At the request of: KRISTINE ELLIOTT Procedure: XR chest 1V EXAM: XR chest 1V HISTORY: syncope COMPARISON: None. TECHNIQUE: AP view of the chest. FINDINGS: The cardiomediastinal silhouette is normal. The lungs are clear. There is no pneumothorax. No pleural effusion is noted. The osseous structures are intact. IMPRESSION: No acute cardiopulmonary process. Electronically authenticated by: CHRIS TEJEDA Date: 07/07/2023 10:40 ECG Data Attestation: I personally reviewed and interpreted this ECG as follows: Interpretation: EKG interpretation: Emergency Department physician interpretation. Normal sinus rhythm at 83bpm. Normal axis, normal intervals and no ST segment elevation or depression. normal EKG. Discharge Plan Discharge Chief Complaint: Syncope Clinical Impression: Hyperglycemia due to diabetes mellitus, Syncope, Acute UTI Patient Disposition: Home, Self-Care Time of Disposition Decision: 12:18 Prescriptions / Home Meds: New ciprofloxacin HCl [Cipro] 500 mg tablet 500 mg PO BID Qty: 5 0RF No Action ferrous sulfate [FeroSul] 325 mg (65 mg iron) tablet 325 mg PO QDAY insulin lispro 100 unit/mL insulin pen 1 sliding scale dose SUBCUT QID pregabalin 150 mg capsule 150 mg PO Q8H ondansetron 4 mg tablet,disintegrating 4 mg PO Q4H PRN (Reason: nausea and vomiting) 3 Days Qty: 6 0RF hydrocodone-acetaminophen 7.5-325 mg tablet 1 tab PO Q8H PRN (Reason: pain) insulin glargine [Lantus Solostar U-100 Insulin] 100 unit/mL (3 mL) insulin pen 25 unit subcut QPM Instructions: Urinary Tract Infection in Women (ED), Syncope (ED), Diabetic Hyperglycemia (ED) Stand Alone Forms: Portal Instructions Referrals: Latosha Olmstead RESIZER OPERATOR [Primary Care Provider] - 1 week
[2023-07-07 10:09] LABS: Acetone NEGATIVE (NEGATIVE)
[2023-07-07 10:17] LABS: Bilirubin Urine NEGATIVE (NEGATIVE); Blood Urine MODERATE (NEGATIVE); Clarity Urine CLOUDY (CLEAR); Color Urine LT YELLOW (YELLOW); Glucose Urine UA 500 mg/dL (NEGATIVE); Ketones Urine NEGATIVE (NEGATIVE); Leukocyte Esterase Urine MODERATE (NEGATIVE); Nitrite Urine NEGATIVE (NEGATIVE); Protein Urine 100 mg/dL (NEG/TRACE); Urine Microscopic Indicated YES; Urobilinogen Urine 0.2 EU/dL (0.2-1.0); pH Urine 5.5 (5.0-9.0)
[2023-07-07] MEDS: 0.9 % SODIUM CHLORIDE 1,000 ML 999 ML IV (10:22)
[2023-07-07 10:40] LABS: SARS-CoV-2 Ag NEGATIVE (NEGATIVE)
[2023-07-07] MEDS: CIPROFLOXACIN HCL 500 MG TABLET PO (10:58)
[2023-07-07 11:03] LABS: Alanine Aminotransferase 15 U/L (14-59); Albumin Globulin Ratio 0.4; Albumin Level 2.3 g/dL (3.4-5.0); Alkaline Phosphatase 115 U/L (46-116); Aspartate Amino Transferase 13 U/L (15-37); BUN Creatinine Ratio 16.4; Bilirubin Total 0.3 mg/dL (0.2-1.0); Calcium 7.5 mg/dL (8.5-10.1); Chloride 99 mmol/L (98-107); Estimated GFR (African America 28 (>=60); Estimated GFR (Non-African Ame 23 (>=60); Globulin 5.5 g/dL; Glucose 389 mg/dL (74-106); Sodium 131 mmol/L (136-145); Total Protein 7.8 g/dL (6.4-8.2); Troponin I High Sensitivity <4.0 pg/mL (4.0-51.3)
[2023-07-07] MEDS: INSULIN REGULAR 300 UNITS/3 ML 15 UNIT SUBQ (11:08)
[2023-07-07 11:16] LABS: Bacteria Urine MODERATE #/HPF (NONE SEEN); Crystals Seen? None Seen #/HPF (None Seen); Mucus Urine NONE SEEN (NONE SEEN); Squamous Epithelial Cell Urine FEW #/LPF (NONE/RARE); Transitional Epi Cells Urine RARE #/LPF (NONE SEEN); WBC Urine 20-50 #/HPF (NONE SEEN)
[2023-07-07 11:17] LABS: Cast Seen? NONE SEEN #/LPF (NONE SEEN); Urine Culture Indicated YES
[2023-07-07 12:12] LABS: Glucometer 304 mg/dL (74-106)
[2023-07-08 13:53] LABS: SARS-CoV-2 NAA INCONCLUSIVE (NOT DETECTE)
== END 2023-07-07 12:34 | disposition home or self-care (01) ==
PROVIDERS: Emergency Provider Emergency Medicine; PCP Nurse Practitioner
DX: N39.0 Urinary tract infection, site not specified (principal); R55 Syncope and collapse; E11.65 Type 2 diabetes mellitus with hyperglycemia; Z79.4 Long term (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; Z79.899 Other long term (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; Z20.822 Contact with and (suspected) exposure to COVID-19
CPT/HCPCS: 36415; 36416; 70450; 71045; 80053; 81001; 82009; 82948; 83735; 84484; 85025; 87086; 87150; 87186; 87635; 87811; 93005; 99285

== ENCOUNTER 2023-08-07 11:24 | Outpatient (OUT) | payer MEDICARE, SELFPAY ==
--- NOTE | 2023-08-07 | XR_ITS ---
The [address] [address] Patient Name: AISLINN CARNES MRN: [id number] date: 1960 Sex: F Assigned Patient Location: Current Patient Location: Accession/Order Number: [id number] Exam Date: 08/07/2023 11:27 Report Date: 08/08/2023 10:05 At the request of: CAMMIE SEGURA Procedure: XR foot LT min 3V EXAM: XR foot LT min 3V HISTORY: LEFT FOOT PAIN COMPARISON: 05/12/2023. TECHNIQUE: Routine views of the XR foot LT min 3V FINDINGS/ XR/XR foot LT min 3V IMPRESSION: 1. No acute fractures. Transverse dictation across the first metatarsal. Second through fifth metatarsal fracture deformities, unchanged. No aggressive periosteal reaction or destructive osseous changes. 2. Soft tissue defect on the plantar lateral aspect of the fifth metatarsal neck. 3. Normal joint spacing. Electronically authenticated by: JOANNA LAZCANO Date: 08/08/2023 10:05
== END 2023-08-07 11:25 | disposition home or self-care (01) ==
LOC: WC 11:24
PROVIDERS: PCP Nurse Practitioner; Visit Provider Physician Assistant
DX: M79.672 Pain in left foot (principal); E11.622 Type 2 diabetes mellitus with other skin ulcer; L97.822 Non-pressure chronic ulcer of other part of left lower leg with fat layer exposed
CPT/HCPCS: 11042; 73630

== ENCOUNTER 2023-08-29 10:00 | Outpatient (OUT) | payer MEDICARE, SELFPAY ==
--- OUTSIDE RECORDS SUMMARY | 2023-08-30 09:24 | XMS_ITS | CCD ---
Author Name Unknown Address [address] [place] [address] Organization [facility] Care Team Providers Care Ssrs Developer Name Role Phone Pcp, No Primary Care Provider LATOSHA Godoy Primary Care Physician [phone] Eli Sprague Unavailable AICHHOLZ, COURT DEPUTY LATOSHA Attending Unavailable AICHHOLZ, COURT DEPUTY LATOSHA Consulting Unavailable AICHHOLZ, COURT DEPUTY LATOSHA Admitting Unavailable AICHHOLZ, COURT DEPUTY LATOSHA Primary Care Unavailable RAMON HUNTLEY Attending Unavailable RAMON HUNTLEY Admitting Unavailable REQUEST, DR PANDEY LISTED Primary Care Unavaila bartolome DELVALLE, DR THANH García Consulting Unavailable RAMON HUNTLEY Consulting Unavailable AICHHOLZ, COURT DEPUTY LATOSHA Primary Care Unavailable RAMON HUNTLEY Admitting Unavailable RAMON HUNTLEY Attending Unavailable AICHHOLZ, COURT DEPUTY LATOSHA Primary Care Unavailable FAWWAD, AMADO H Consulting Unavailable FAWWAD, AMADO H Admitting Unavailable FAWWAD, AMADO H Attending Unavailable AICHHOLZ, COURT DEPUTY LATOSHA Consulting Unavailable AICHHOLZ, COURT DEPUTY LATOSHA Admitting Unavailable AICHHOLZ, COURT DEPUTY LATOSHA Attending Unavailable AICHHOLZ, COURT DEPUTY LATOSHA Primary Care Unavailable RAMON HUNTLEY Attending Unavailable AICHHOLZ, COURT DEPUTY LATOSHA Primary Care Unavailable RAMON HUNTLEY Admitting Unavailable BHARAT, DR NUBIA Carlos Consulting Unavailable RAMON HUNTLEY Consulting Unavailable AICHHOLZ, COURT DEPUTY LATOSHA Primary Care Unavailable WEST, DR NUBIA Carlos Consulting Unavailable DIANA SEGURA Admitting Unavailable DIANA SEGURA Attending Unavailable DIANA SEGURA Consulting Unavailable AICHHOLZ, COURT DEPUTY LATOSHA Primary Care Unavailable AICHHOLZ, COURT DEPUTY LATOSHA Attending Unavailable AICHHOLZ, COURT DEPUTY LATOSHA Admitting Unavailable WEST, DR NUBIA Carlos Consulting Unavailable AICHHOLZ, COURT DEPUTY LATOSHA Consulting Unavailable AICHHOLZ, COURT DEPUTY LATOSHA Primary Care Unavailable COLTON, DIANA Admitting Unavailable COLTONMIGELLY Attending Unavailable COLTON, DIANA Consulting Unavailable AICHHOLZ, COURT DEPUTY LATOSHA Primary Care Unavailable AICHHOLZ, COURT DEPUTY LATOSHA Attending Unavailable AICHHOLZ, COURT DEPUTY LATOSHA Consulting Unavailable AICHHOLZ, COURT DEPUTY LATOSHA Admitting Unavailable AICHHOLZ, COURT DEPUTY LATOSHA Primary Care Unavailable WEST, DR NUBIA Carlos Consulting Unavailable COLTON, DIANA Admitting Unavailable COLTON, DIANA Attending Unavailable COLTON, DIANA Consulting Unavailable AICHHOLZ, COURT DEPUTY LATOSHA Primary Care Unavailable ZIEBER, DR THANH García Consulting Unavailable HIGHLANDER, PETER D Attending Unavailable HIGHLANDER, PETER D Admitting Unavailable HIGHLANDER, PETER D Consulting Unavailable AICHHOLZ, COURT DEPUTY LATOSHA Primary Care Unavailable FOSTER ., DR PAGE Admitting Unavailable FOSTER ., DR PAGE Attending Unavailable FOSTER ., DR PAGE Consulting Unavailable ZIEBER, DR THANH García Consulting Unavailable HIGHLANDER, PETER D Admitting Unavailable AICHHOLZ, COURT DEPUTY LATOSHA Primary Care Unavailable ZIEBER, DR THANH García Consulting Unavailable HIGHLANDER, PETER D Attending Unavailable HIGHLANDER, PETER D Consulting Unavailable AICHHOLZ, COURT DEPUTY LATOSHA Primary Care Unavailable AICHHOLZ, COURT DEPUTY LATOSHA Attending Unavailable AICHHOLZ, COURT DEPUTY LATOSHA Consulting Unavailable AICHHOLZ, COURT DEPUTY LATOSHA Admitting Unavailable ZIEBER, DR THANH García Consulting Unavailable AICHHOLZ, COURT DEPUTY LATOSHA Primary Care Unavailable ZIEBER, DR THANH García Consulting Unavailable HIGHLANDER, PETER D Attending Unavailable HIGHLANDER, PETER D Admitting Unavailable HIGHLANDER, PETER D Consulting Unavailable AICHHOLZ, COURT DEPUTY LATOSHA Primary Care Unavailable ZIEBER, DR THANH García Consulting Unavailable COLTON, DIANA Admitting Unavailable COLTON, DIANA Attending Unavailable COLTON, DIANA Consulting Unavailable RAQUEL DERAS Admitting Unavailable WANDY .RAQUEL Attending Unavailable KASIE CANDELARIO Consulting Unavailable REQUEST, DR PANDEY LISTED Primary Care Unavaila bartolome SABA .RAQUEL Consulting Unavailable LYLE MATIAS Consulting Unavailable AICHHOLZ, COURT DEPUTY LATOSHA Primary Care Unavailable EARL ., DR CARMONA Admitting Unavailable EARL ., DR CARMONA Attending Unavailable EARL ., DR CARMONA Consulting Unavailable TONY LUO Consulting Unavailable NUBIA BATEMAN Unavailable AICHHOLZ, COURT DEPUTY LATOSHA Primary Care Unavailable HIGHLANDER, RAMON D Admitting Unavailable HIGHLANDER, RAMON Tillman Attending Unavailable HIGHLANDER, RAMON D Admitting Unavailable AICHHOLZ, COURT DEPUTY LATOSHA Primary Care Unavailable HIGHLANDER, RAMON Tillman Attending Unavailable HIGHLANDER, PETER D Admitting Unavailable AICHHOLZ, COURT DEPUTY LATOSHA Primary Care Unavailable ZIEBJEANNINE, DR THANH García Consulting Unavailable HIGHLANDER, RAMON Tillman Attending Unavailable HIGHLANDER, RAMON Tillman Consulting Unavailable HIGHLANDER, PETER D Admitting Unavailable AICHHOLZ, COURT DEPUTY LATOSHA Primary Care Unavailable HIGHLANDER, RAMON Tillman Attending Unavailable HIGHLANDER, RAMON Tillman Attending Unavailable HIGHLANDER, PETER D Admitting Unavailable REQUEST, DR NONE LISTED Primary Care Unavaila ble HIGHLANDER, RAMON D Admitting Unavailable AICHHOLZ, COURT DEPUTY LATOSHA Primary Care Unavailable HIGHLANDER, RAMON Tillman Attending Unavailable HIGHLANDER, PETER D Admitting Unavailable AICHHOLZ, COURT DEPUTY LATOSHA Primary Care Unavailable HIGHLANDER, RAMON D Attending Unavailable HIGHLANDER, RAMON Tillman Attending Unavailable HIGHLANDER, PETER D Admitting Unavailable REQUEST, DR NONE LISTED Primary Care Unavaila bartolome PALMA, DR NELL Salazar Attending Unavailabl e DAELIA, DR THANH García Consulting Unavailable REQUEST, NONE LISTED Primary Care Unavaila bartolome PALMA, DR NELL Salazar Admitting Unavailabl e GRECHMYRNA ., GIANNI PETIT Consulting Unavailabl e VIEIRA ., DR NENO Rodriguez Consulting Unavailable VIEIRA ., DR NENO Rodriguez Admitting Unavailable VIEIRA ., DR NENO Rodriguez Attending Unavailable REQUEST, DR NONE LISTED Primary Care Unavaila ble GRECHMYRNA ., GIANNI PETIT Consulting Unavailabl e WILLYANDER, PETER D Procedure Practitioner Unava ilable TONY LUO Consulting Unavailable RAMON HUNTLEY Consulting Unavailable BRANDO, KWADWO Consulting Unavailable NUBIA BATEMAN Consulting Unavailable SCHNEBARTOLOME, GURU Consulting Unavailable READER, LANDON Consulting Unavailable ROSELIA ., LISA JIMENEZ Consulting Unavailable GEMBUS, ROCAEL Consulting Unavailable REJI SMALLWOOD Consulting Unavailable AICHHOLZ, COURT DEPUTY LATOSHA Primary Care Unavailable ALBANY, DR NUBIA Carlos Consulting Unavailable DIANA SEGURA Admitting Unavailable DIANA SEGURA Attending Unavailable DIANA SEGURA Consulting Unavailable WILLYANDER, RAMON Tillman Admitting Unavailable AICHHOLZ, COURT DEPUTY LATOSHA Primary Care Unavailable ZIIMTIAZ, DR THANH García Consulting Unavailable HIGHLANDER, RAMON Tillman Attending Unavailable HIGHLANDER, RAMON Tillman Consulting Unavailable Brigette Wesley Unavailable Sara Augustine Unavailable Vern TAVERAS, Lisa Pulido Unavailable Latosha Olmstead Primary Care Provider [phone] Sumi Lentz Primary Care Unavailable Latosha Olmstead Attending Unavailable Latosha Olmstead Admitting Unavailable ABOUASSALY, TAURUS Referring Unavailable ABOUASSALY, TAURUS Referring Unavailable ABOUASSALY, TAURUS Attending Unavailable ABOUASSALY, TAURUS Attending Unavailable ABOUASSALY, TAURUS Admitting Unavailable Lue, Lisa M. Referring Unavailable Lue, Lisa M. Admitting Unavailable Lue, Lisa M. Attending Unavailable CATALINA, HEIDY E Attending Unavailable CATALINA, HEIDY E Admitting Unavailable CATALINA, HEIDY E Attending Unavailable CATALIAN, HEIDY E Admitting Unavailable CATALINA, HEIDY E Admitting Unavailable CATALINA, HEIDY E Attending Unavailable CATALINA, HEIDY E Attending Unavailable Lue, Lisa M. Attending Unavailable RICHHOLLATOSHA Salas Attending Unavailable Lue, Lisa M. Attending Unavailable Lue, Lisa M. Attending Unavailable Lue, Lisa M. Attending Unavailable Lue, Lisa M. Attending Unavailable LATOSHA OLMSTEAD Referring Unavailable CATALINA, HEIDY E Attending Unavailable Lue, Lisa M. Referring Unavailable Lue, Lisa M. Attending Unavailable RICHHOLLATOSHA Salas Attending Unavailable CATALINA, HEIDY E Attending Unavailable Allergies Allergy Classification Reported Allergen(s) Allergy Type Date of Onset Reaction(s) Facility Latex (1 source) Latex Substance Allergy 0 Rash [facility] (20 sources) Latex; Translations: [Latex] Allergy to substance 0 Eruption of skin (disorder), Rash [facility] Medications Current Medications Medication Drug Class(es) Dates Sig (Normalized) Sig (Original) acetaminophen 325 mg oral tablet (2 sources) Start: 06-22-2023 End: 07-22-2023 take 2 tablets by mouth every six hours as needed acetaminophen (TYLENOL) 325 mg tablet Take 2 tablets by mouth every 6 hours as needed for pain. 112 tablet 0 06/22/2023 07/22/2023 Active Comment on above: Take 2 tablets by mo [facility] every 6 hours as needed for pain. acetaminophen 325 mg / HYDROcodone bitartrate 7.5 mg oral tablet (20 sources) Opioid Agonist Start: 09-08-2022 acetaminophen-hydro codone 325 mg-7.5 mg oral tablet Refill(s) 0 Start Date: 09/08/22 Status: Ordered Start: 01-03-2021 take 1 tablet by rain every eight hours as needed HYDROcodone-Acetaminophen (NORCO) 7.5-32 5 mg per tablet Take 1 tablet by mouth three times daily as needed. 0 01/03/2021 Active take 1 tablet by rain th every six hours HYDROcodone-Acetaminophen 7.5-325 MG 1 tablet as needed Orally every 6 hrs Active Comment on above: Take 1 tablet by rain three times daily as needed. amLODIPine 5 mg oral tablet (10 sources) Dihydropyridine Calcium Channel Renetta Start: amLODIPine 5 mg Tab Refills(s) 0 Start Date: 09/08/22 Status: Ordered cephalexin 500 mg oral capsule (6 sources) Cephalosporin Antibacterial Start: take 1 capsule by mouth every twelve hours Cephalexin 500 MG 1 capsule Orally twice a day Apr, Active ciprofloxacin 250 mg oral tablet (1 source) Quinolone Antimicrobial Start: End: take 1 tablet by mouth once daily ciprofloxacin HCl (CIPRO) 250 mg tablet Take 1 tablet by mouth once daily for 3 days. 3 tablet 0 01/21/2021 01/27/2021 Active Comment on above: Take 1 tablet by rain once daily for 3 days. Dexcom G6 Sensor - (5 sources) Start: Dexcom G6 Sensor - as directed SQ change q 10 days for 90 days May, Active Dexcom G6 Sensor - as directed SQ change q 10 days for 90 days Active Dexcom G6 Transmitter - (5 sources) Start: 06-08-2023 Dexcom G6 Maya smitter - as directed SQ change every 90 days for 90 days May, Active Dexcom G6 Transm itter - as directed SQ change every 90 days for 90 days Active docusate sodium 100 mg oral capsule (2 sources) Start: 06-22-2023 End: 07-23-2023 take 1 capsule by mouth twice daily docusate sodium (COLACE) 100 mg capsule Take 1 capsule by mouth two times a day. 60 capsule 0 06/22/2023 07/23/2023 Active Comment on above: Take 1 capsule by mo [facility] two times a day. estradiol 0.1 mg/ml vaginal cream (5 sources) Estrogen Start: 05-03-2023 Estrace 0.1 mg /g Cream See Instructions, 42.5 gm, Refill(s) 3, apply pea size amount to urethra/inner vagina 3x/week x 1 month, then 2x/week for maintainence, [id number], 153, cm, 05/03/23 9:52:00 EDT, Height/Length Dosing, 59, kg, 05/03/23 9:52:00 EDT, Weight Dosing Start Date: 05/03/23 Status: Ordered ferrous sulfate 325 mg oral tablet (11 sources) Start: 04-11-2023 take 1 tablet by mouth every twenty-four hours Ferrous Sulfate 325 (65 Fe) MG 1 tablet Orally once a day for 90 days Mar, Active Start: 04-16-2021 take 1 tablet by rain three times daily at mealtime FEROSUL 325 mg (65 mg iron) tablet Take 1 tablet by mouth three times daily with meals. 0 04/16/2021 Active Comment on above: Take 1 tablet by rain three times daily with meals. folic acid 1 mg oral tablet (10 sources) Start: 023 folic acid 1 mg Tab Refills(s) 0 Start Date: 09/08/22 Status: Ordered Insulin Aspart FlexPen (9 sources) Start: 023 Insulin Aspart FlexPen SubCutaneous, TIDAC, Refills(s) 0 Start Date: 09/21/22 Status: Ordered 3 ml insulin degludec 100 unt/ml / liraglutide 3.6 mg/ml pen injector (4 sources) Insulin Analog, GLP-1 Receptor Agonist Start: 023 inject 28 [IU] by subcutaneous injection once daily in the morning Xultophy 100-3.6 UNIT-MG/ML 28 units Subcutaneous qam for 90 days titrate up to max 30 units/day (stop lantus) 28 Sep, 2023 Active 3 ml insulin lispro 100 unt/ml cartridge (9 sources) Insulin Analog HumaLOG 100 UNIT /ML 4-6-8-10 units ac according to meal size tid. Corrective scale 1:25 ac, hs Subcutaneous As Directed Active 24 hr mirabegron 50 mg extended release oral tablet (1 source) beta3-Adrenergic Agonist Start: End: take 1 tablet by mouth once daily Myrbetriq 50 mg oral tablet, extended release 50 mg = 1 tab(s), Oral, Daily, X 30 day(s), # 30 tab(s), Refills(s) 6, Pharmacy: [id number], 153, cm, 09/21/22 8:48:00 EST, Height/Length Dosing, 52.5, kg, 09/21/22 8:48:00 EST, Weight Dosing Start Date: 09/21/22 Stop Date: 04/19/23 Status: Ordered 24 hr oxybutynin chloride 5 mg extended release oral tablet (1 source) Cholinergic Muscarinic Antagonist Start: End: take 1 tablet by mouth once daily oxybutynin 5 mg ER Tab 5 mg = 1 tab(s), Oral, Daily, X 30 day(s), # 30 tab(s), Refills(s) 6, Pharmacy: [id number], 153, cm, 09/13/22 13:38:00 EST, Height/Length Dosing, 52.5, kg, 09/13/22 13:38:00 EST, Weight Dosing Start Date: 09/13/22 Stop Date: 04/11/23 Status: Ordered potassium chloride 10 meq extended release oral capsule (10 sources) Start: potassium chloride 10 mEq Cap-ER Refills(s) 0 Start Date: 09/08/22 Status: Ordered trospium chloride 20 mg oral tablet (4 sources) Cholinergic Muscarinic Antagonist Start: take 1 tablet by mouth once daily trospium 20 mg oral tablet 20 mg = 1 tab(s), Oral, Daily, # 30 tab(s), Refills(s) 11, Pharmacy: [id number], 153, cm, 02/22/23 8:55:00 EDT, Height/Length Dosing, 52.5, kg, 02/22/23 8:55:00 EDT, Weight Dosing Start Date: 02/22/23 Status: Ordered vitamin B12 (11 sources) Vitamin B12 Start: 023 take 1 tablet by mouth once daily Cyanocobalamin ER 1000 MCG 1 tablet Orally Once a day for 90 days Mar, Active Start: 04-16-2021 take 1 tablet by rain once daily VITAMIN B-12 1,000 mcg tab Take 1,000 mcg by mouth once daily. 0 04/16/2021 Active Comment on above: Take 1,000 mcg by mo [facility] once daily. Completed/Discontinued Medications Medication Drug Class(es) Dates Sig (Normalized) Sig (Original) [id number] 200 actuat albuterol 0.09 mg/actuat metered dose inhaler (6 sources) beta2-Adrenergic Agonist take 2 puff(s) by inhalation every six hours as needed for wheezing albuterol HFA (PROVENTIL HFA, VENTOLIN HFA) 90 mcg/actuation inhaler Inhale 2 Puffs as instructed every 6 hours as needed for wheezing/shortness of breath. 0 Active Comment on above: Inhale 2 Puffs as in structed every 6 hours as needed for wheezing/shortness of breath. Budesonide / formoterol (1 source) Corticosteroid, beta2-Adrenergic Agonist take 2 puff(s) by inhalation twice daily budesonide-formotero l (SYMBICORT) 80-4.5 mcg/actuation inhaler Inhale 2 Puffs as instructed twice daily. 0 Active Comment on above: Inhale 2 Puffs as in structed twice daily. insulin aspart, human (5 sources) Insulin Analog insulin aspart (NOVOLOG FLEXPEN U-100 INSULIN SUBCUTANEOUS) Inject subcutaneously. Sliding scale 0 Active Comment on above: Inject subcutaneousl y. Sliding scale insulin glargine 100 unt/ml injectable solution (14 sources) Insulin Analog Start: 01-21-2021 inject 25 [IU] by subcutaneous injection once daily at bedtime insulin glargine (LANTUS) 100 unit/mL injection Inject 25 Units subcutaneously daily at bedtime. 100 mL 0 01/21/2021 Active Lantus SoloStar 100 UNIT/ML 28 units Subcutaneous qam Active Lantus SoloStar 100 UNIT/ML as directed Subcutaneous 14 UNITS ONCE A DAY Active Comment on above: Inject 25 Units subc utaneously daily at bedtime. pregabalin 150 mg oral capsule (20 sources) Start: take 1 capsule by mouth three times daily pregabalin (LYRICA) 150 mg capsule Take 150 mg by mouth three times daily. 0 01/01/2021 Active Comment on above: Take 150 mg by mouth three times daily. Problems Active Problems Problem Classification Problem Date Documented Da te Episodic/Chronic Administrative/social admission (2 sources) Dietary counseling and surveillance Episodic Asthma (6 sources) Unspecified asthma, uncomplicated; Translations: [Mild intermittent asthma] Onset: 09-06-2022 06-06-2023 Chronic Chronic kidney disease (20 sources) Chronic kidney disease stage 3; Translations: [Chronic kidney disease, stage 3 unspecified] Onset: 11-15-2021 09-08-2022 Chronic Chronic ulcer of skin (3 sources) Non-pressure chronic ulcer of other part of right foot with fat layer exposed; Translations: [Non-pressure chronic ulcer of other part of left foot with fat layer exposed] Onset: 06-30-2022 Chronic Congestive heart failure; nonhypertensive (11 sources) Heart failure; Translations: [Heart failure, unspecified] Onset: 08-09-2022 09-08-2022 Chronic Deficiency and other anemia (15 sources) Iron deficiency anemia; Translations: [Iron deficiency anemia, unspecified] Onset: 11-15-2021 09-08-2022 Episodic Deficiency and other anemia (1 source) Anemia, unspecified Episodic Diabetes mellitus with complications (20 sources) Disorder due to type 2 diabetes mellitus; Translations: [Type 2 diabetes mellitus with unspecified complications] Onset: 2022 Chronic Diabetes mellitus without complication (20 sources) Type 2 diabetes mellitus; Translations: [Type 2 diabetes mellitus without complications] Onset: 11-03-2021 09-08-2022 Chronic Diabetes mellitus without complication (13 sources) Glycosuria; Translations: [Glycosuria] Onset: 09-13-2022 Episodic Diabetes mellitus without complication (1 source) Diabetes mellitus without complication; Translations: [Type 2 diabetes mellitus with diabetic chronic kidney disease] Onset: 06-08-2023 Disorders of lipid metabolism (20 sources) Hyperlipidemia; Translations: [Hyperlipidemia, unspecified] Onset: 09-13-2022 Chronic Essential hypertension (20 sources) Essential hypertension; Translations: [Essential (primary) hypertension] Onset: 08-17-2022 09-08-2022 Chronic Fracture of lower limb (11 sources) Fracture of unspecified metatarsal bone(s), left foot, subsequent encounter for fracture with malunion; Translations: [Displaced fracture of second metatarsal bone, left foot, subsequent encounter for fracture with routine healing] Onset: 08-05-2022 Episodic Genitourinary symptoms and ill-defined conditions (20 sources) Mixed incontinence; Translations: [Incontinence] Onset: 09-13-2022 Chronic Genitourinary symptoms and ill-defined conditions (20 sources) Urinary tract obstruction; Translations: [Obstructive and reflux uropathy, unspecified] Onset: 01-17-2021 01-21-2021 Episodic Heart valve disorders (7 sources) Rheumatic mitral valve disease, unspecified; Translations: [Nonrheumatic mitral (valve) prolapse] Onset: 08-09-2022 06-06-2023 Chronic Hypertension with complications and secondary hypertension (1 source) Hypertensive heart disease with heart failure; Translations: [HTN HEART DISEASE W/HEART FAIL] Onset: 08-09-2022 Chronic Infective arthritis and osteomyelitis (except that caused by tuberculosis or sexually transmitted disease) (1 source) Other acute osteomyelitis, left ankle and foot; Translations: [OTH ACUTE OSTEOMYEL LT ANKLE FOOT] Onset: 09-13-2022 Chronic Neoplasms of unspecified nature or uncertain behavior (4 sources) Neoplasm of uncertain behavior of left kidney; Translations: [Neoplasm of kidney] Onset: 06-06-2023 06-22-2023 Episodic Nonspecific chest pain (4 sources) Chest pain, unspecified; Translations: [CHEST PAIN UNSPECIFIED] Onset: 12-15-2022 Episodic Nutritional deficiencies (16 sources) Deficiency of macronutrients; Translations: [Unspecified severe protein-calorie malnutrition] Onset: 01-19-2021 01-21-2021 Chronic Nutritional deficiencies (1 source) Deficiency of other specified B group vitamins Episodic Osteoporosis (1 source) Age-related osteoporosis without current pathological fracture; Translations: [AGE-REL OSTEOPOR W/O CURR PATH FX] Onset: 12-31-2022 Chronic Other aftercare (15 sources) Long-term current use of insulin; Translations: [FDC (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] Episodic Other aftercare (3 sources) terminal gauger (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; Translations: [MEDICATION ADMINISTRATION PROFESSIONAL CURRENT USE OF INSULIN] Onset: 08-09-2022 Episodic Other circulatory disease (1 source) Other disorders of arteries, 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; Translations: [OTH D/O ART ARTRIOL CAP DZ CLSS ELS] Onset: 09-13-2022 Chronic Other circulatory disease (15 sources) History of transient ischemic attack; Translations: [Personal history of transient ischemic attack (TIA), and cerebral infarction without residual deficits] Onset: 07-25-2022 09-08-2022 Episodic Other connective tissue disease (5 sources) Pain in left foot; Translations: [PAIN IN LEFT FOOT] Onset: 06-15-2022 Episodic Other diseases of bladder and urethra (1 source) Neuromuscular dysfunction of bladder, unspecified; Translations: [NEUROMUSCULR DYSFNCTION BLADDER UNS] Onset: 07-25-2022 Chronic Other diseases of bladder and urethra (5 sources) Bladder outlet obstruction; Translations: [Bladder-neck obstruction] Onset: 01-29-2021 01-29-2021 Chronic Other diseases of bladder and urethra (5 sources) Neurogenic bladder; Translations: [Neuromuscular dysfunction of bladder, unspecified] Onset: 06-06-2023 06-06-2023 Chronic Other diseases of kidney and ureters (1 source) Disorder of kidney and/or ureter; Translations: [Other specified disorders of kidney and ureter] Onset: 02-22-2023 Chronic Other diseases of kidney and ureters (3 sources) Renal mass 02-22-2023 Chronic Other diseases of kidney and ureters (3 sources) Acquired renal cyst without neoplastic change; Translations: [Cyst of kidney, acquired] Onset: 09-13-2022 Episodic Other diseases of kidney and ureters (10 sources) Cyst of kidney 09-13-2022 Episodic Other diseases of kidney and ureters (6 sources) Cyst of kidney, acquired; Translations: [CYST OF KIDNEY ACQUIRED] Onset: 09-15-2022 Episodic Other diseases of kidney and ureters (1 source) Acquired renal cystic disease; Translations: [Cyst of kidney, acquired] 07-05-2023 Episodic Other endocrine disorders (6 sources) Hyperparathyroidism; Translations: [Hyperparathyroidism , unspecified] Chronic Other nervous system disorders (5 sources) Chronic pain due to injury; Translations: [Chronic pain due to trauma] Onset: 06-06-2023 06-06-2023 Chronic Other nervous system disorders (1 source) Other acute postprocedural pain; Translations: [Postoperative pain] Onset: 06-22-2023 Episodic Other nervous system disorders (1 source) Postoperative pain ; Translations: [Other acute postprocedural pain] Onset: 06-27-2023 06-27-2023 Episodic Other nutritional; endocrine; and metabolic disorders (1 source) Body mass index (BMI) 25.0-25.9, adult Episodic Other screening for suspected conditions (not mental disorders or infectious disease) (5 sources) Encounter for screening mammogram for malignant neoplasm of breast; Translations: [Other specified abnormal findings of blood chemistry] Onset: 07-25-2022 Episodic Residual codes; unclassified (1 source) Asymptomatic menopausal state; Translations: [ASYMPTOMATIC MENOPAUSAL STATE] Onset: 12-31-2022 Episodic Residual codes; unclassified (1 source) Family history of malignant neoplasm of ovary; Translations: [FAM HX MALIGNANT NEOPLASM OVARY] Onset: 12-31-2022 Episodic Residual codes; unclassified (1 source) Family history of malignant neoplasm of kidney; Translations: [FAM HX MALIGNANT NEOPLASM KIDNEY] Onset: 12-31-2022 Episodic Residual codes; unclassified (1 source) Family history of malignant neoplasm of other organs or systems; Translations: [FAM HX MALIG NEOPLASM OTH ORGN/SYS] Onset: 12-31-2022 Episodic Residual codes; unclassified (1 source) Body mass index (BMI) 24.0-24.9, adult Episodic Rheumatoid arthritis and related disease (1 source) Rheumatoid arthritis, unspecified; Translations: [RHEUMATOID ARTHRITIS UNSPECIFIED] Onset: 09-13-2022 Chronic Unclassified (10 sources) Finding of sensation of bladder 09-13-2022 Unclassified (1 source) CHRN KIDNEY DISEASE STG 3 UNSP; Translations: [CHRN KIDNEY DISEASE STG 3 UNSP] Onset: 12-31-2022 Unclassified (1 source) CONTACT W/AND (SUSP) EXPOS COVID-19; Translations: [CONTACT W/AND (SUSP) EXPOS COVID-19] Onset: 07-25-2022 Past or Other Problems Problem Classification Problem Date Documented Da te Episodic/Chronic Acute and unspecified renal failure (7 sources) Acute injury of kidney; Translations: [Acute kidney failure, unspecified] Onset: 01-17-2021 01-21-2021 Episodic Calculus of urinary tract (16 sources) Ureteric stone; Translations: [Calculus of ureter] Onset: 01-17-2021 01-18-2021 Episodic Chronic kidney disease (3 sources) Chronic kidney disease Complications of surgical procedures or medical care (5 sources) Other complications of amputation stump; Translations: [OTH COMPLICATIONS AMPUTATION STUMP] Onset: 06-24-2022 Episodic Deficiency and other anemia (1 source) Folate deficiency anemia, unspecified; Translations: [FOLATE DEFICIENCY ANEMIA UNS] Onset: 07-25-2022 Episodic E Codes: Natural/environment (1 source) Exposure to other specified factors, initial encounter; Translations: [EXPOSURE OTHER SPEC FACTORS INITIAL] Onset: 06-15-2022 Episodic Fluid and electrolyte disorders (17 sources) Hyperkalemia; Translations: [Hyperkalemia] Onset: 07-25-2022 09-08-2022 Episodic Fracture of upper limb (2 sources) Fracture of unspecified phalanx of right little finger, subsequent encounter for fracture with routine healing; Translations: [Displaced fracture of proximal phalanx of right little finger, initial encounter for closed fracture] Onset: 06-15-2022 Episodic Malaise and fatigue (6 sources) Asthenia; Translations: [Weakness] Onset: 01-17-2021 01-18-2021 Episodic Open wounds of extremities (1 source) Unspecified open wound of right great toe without damage to nail, initial encounter; Translations: [UNS OP WND RT GRT TOE NO DMG NL INT] Onset: 05-16-2022 Episodic Other aftercare (1 source) 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; Translations: [OTH CORRECTION CURRENT DRUG THERAPY] Onset: 08-09-2022 Episodic Other circulatory disease (1 source) Personal history of transient ischemic attack (TIA), and cerebral infarction without residual deficits; Translations: [PERS HX TIA AND CI NO RESID DEFICIT] Onset: 07-25-2022 Episodic Other connective tissue disease (6 sources) Recurrent falls ; Translations: [Repeated falls] Onset: 01-17-2021 01-18-2021 Episodic Other connective tissue disease (1 source) Abscess of tendon sheath, left ankle and foot; Translations: [ABSCESS TENDON SHEATH LT ANKLE FOOT] Onset: 07-25-2022 Episodic Other connective tissue disease (1 source) Muscle weakness (generalized); Translations: [MUSCLE WEAKNESS GENERALIZED] Onset: 07-25-2022 Episodic Other connective tissue disease (3 sources) Pain in right finger(s); Translations: [PAIN IN RIGHT FINGERS] Onset: 06-02-2022 Episodic Other connective tissue disease (5 sources) Pain in right foot; Translations: [PAIN IN RIGHT FOOT] Onset: 06-02-2022 Episodic Other gastrointestinal disorders (1 source) Diarrhea, unspecified; Translations: [DIARRHEA UNSPECIFIED] Onset: 07-25-2022 Episodic Other lower respiratory disease (1 source) Hypoxemia; Translations: [HYPOXEMIA] Onset: 07-25-2022 Episodic Other nutritional; endocrine; and metabolic disorders (1 source) Body mass index (BMI) 19.9 or less, adult; Translations: [BODY MASS INDEX 19.9 OR LESS ADULT] Onset: 07-25-2022 Episodic Residual codes; unclassified (1 source) Acquired absence of both cervix and uterus; Translations: [ACQUIRED ABSENCE BOTH CERVIX AND UTERUS] Onset: 08-09-2022 Episodic Residual codes; unclassified (1 source) Acquired absence of other specified parts of digestive tract; Translations: [ACQ ABSENCE OTH PART DIGESTV TRACT] Onset: 07-25-2022 Episodic Septicemia (except in labor) (4 sources) Sepsis, unspecified organism; Translations: [Sepsis due to Methicillin resistant Staphylococcus aureus] Onset: 06-11-2022 Episodic Skin and subcutaneous tissue infections (3 sources) Cellulitis of left lower limb; Translations: [Cellulitis of left toe] Onset: 07-25-2022 Episodic Urinary tract infections (13 sources) Urinary tract infectious disease; Translations: [Urinary tract infection, site not specified] Onset: 07-25-2022 09-08-2022 Episodic Results Test Name Value Interpretation Reference Range Facility Operative Reporton Operative Report [id number]#1.00T IFF Normal [facility] Pathology Noteon 08-07-2023 Pathology Note [id number]#1.00 TIFF Normal [facility] ED Note-Physicianon 06-29-20 ED Note-Physician [id number]#1.00T IFF Normal [facility] Patient Letter FTMCon 2022 Patient Letter [facility] (Inserted Image. Grecia ble to display) June 28, 2023 AISLINN WHEELER [address] [place] [id number] : 1960 Dear Aislinn, You missed your scheduled appointment on: June with Dr. iLsa Porras. Please note our appointment slots fill quickly. When you fail to cancel or reschedule an appointment the office is unable to fill the appointment slot that was reserved for you. In the future, we ask that you call 24 hours in advance to cancel your appointment. Our current reminder system gives you the opportunity to cancel by responding to our reminder text, phone call or email. You can also call the office to reschedule during normal business hours or use our on-line scheduling portal at your convenience. Our goal is to provide convenient and quality care to all of our patients. We appreciate your consideration regarding any future cancellations. Sincerely, [facility] [address], [place] [address] Pt called and RS'd. Normal [facility] Basic metabolic 1999 panelon 06-23-2023 Anion gap [Moles/Vol] 9 mmol/L Normal 9-18 [facility] Comment on above: Order Comment: Speci men Type: BLOOD SPECIMEN Ordering Facility: [facility] Address: [address] [place] [address] Performed By: #### 2 4321-2 #### [facility] CLIA [id number] [address] [place] [address] [place] Calcium [Mass/Vol] 7.3 mg/dL Low 8.5-10.2 [facility] Comment on above: Order Comment: Speci men Type: BLOOD SPECIMEN Ordering Facility: [facility] Address: [address] [place] [address] Performed By: #### 2 4321-2 #### [facility] CLIA [id number] [address] [place] [address] [place] Chloride [Moles/Vol] 110 mmol/L High 97-105 [facility] Comment on above: Order Comment: Speci men Type: BLOOD SPECIMEN Ordering Facility: [facility] Address: [address] [place] [address] Performed By: #### 2 4321-2 #### [facility] CLIA [id number] [address] [place] [address] [place] CO2 [Moles/Vol] 19 mmol/L Low 22-30 [facility] Comment on above: Order Comment: Speci men Type: BLOOD SPECIMEN Ordering Facility: [facility] Address: [address] [place] [address] Performed By: #### 2 4321-2 #### [facility] CLIA [id number] [address] [place] [address] [place] Creatinine [Mass/Vol] 1.39 mg/dL High 0.58-0.96 [facility] Comment on above: Order Comment: Speci men Type: BLOOD SPECIMEN Ordering Facility: [facility] Address: [address] [place] [address] Performed By: #### 2 4321-2 #### [facility] CLIA [id number] [address] [place] [address] Creatinine and Glomerular filtration rate.predicted panel (S/P/Bld) 42 mL/min/1.73m??? Low >=60 [facility] Comment on above: Order Comment: Speci men Type: BLOOD SPECIMEN Ordering Facility: [facility] Address: [address] [place] [address] Result Comment: Donna mated Glomerular Filtration Rate (eGFR) is calculated using the 2020 CKD-EPI creatinine equation. This equation utilizes serum creatinine, sex, and age as parameters. The creatinine assay has traceable calibration to isotope dilution-mass spectrometry. Refer to KDIGO guidelines for clinical interpretation. In patients with unstable renal function, e.g. those with acute kidney injury, the eGFR may not accurately reflect actual GFR. Performed By: #### 2 4321-2 #### [facility] CLIA [id number] [address] [place] [address] [place] Glucose [Mass/Vol] 157 mg/dL High 74-99 [facility] Comment on above: Order Comment: Speci men Type: BLOOD SPECIMEN Ordering Facility: [facility] Address: [address] [place] [address] Result Comment: The [place] Diabetes Association (ADA) provides guidance for cutoff values for fasting glucose and random glucose. The ADA defines fasting as no caloric intake for at least 8 hours. Fasting plasma glucose results between 100 to 125 mg/dL indicate increased risk for diabetes (prediabetes). Fasting plasma glucose results greater than or equal to 126 mg/dL meet the criteria for diagnosis of diabetes. In the absence of unequivocal hyperglycemia, results should be confirmed by repeat testing. In a patient with classic symptoms of hyperglycemia or hyperglycemic crisis, random plasma glucose results greater than or equal to 200 mg/dL meet the criteria for diagnosis of diabetes. Reference: Standards of Medical Care in Diabetes 2016, [place] [employer] Association. Diabetes Care. 2016.39(Suppl 1). Performed By: #### 2 4321-2 #### [facility] CLIA [id number] [address] [place] [address] [place] Potassium [Moles/Vol] 5.1 mmol/L Normal 3.7-5.1 [facility] Comment on above: Order Comment: [place] Type: BLOOD SPECIMEN Ordering Facility: [facility] Address: [address] [place] [address] Performed By: #### 2 4321-2 #### [facility] CLIA [id number] [address] [place] [address] [place] Sodium [Moles/Vol] 138 mmol/L Normal 136-144 [facility] Comment on above: Order Comment: Simonai men Type: BLOOD SPECIMEN Ordering Facility: [facility] Address: [address] [place] [address] Performed By: #### 2 4321-2 #### [facility] CLIA [id number] [address] [place] [address] [place] Urea nitrogen [Mass/Vol] 21 mg/dL Normal 7-21 [facility] Comment on above: Order Comment: Simonai men Type: BLOOD SPECIMEN Ordering Facility: [facility] Address: [address] [place] [address] Performed By: #### 2 4321-2 #### [facility] CLIA [id number] [address] [place] [address] [place] CBC panel Auto (Bld)on 06-23 Erythrocyte distribution width (RBC) [Ratio] 14.4 % Normal 11.5-15.0 [facility] Comment on above: Order Comment: Speci men Type: BLOOD SPECIMENOrdering Facility: [facility] Address: [address] [place] [address] Performed By: #### 5 8410-2 ####[facility] [id number] [address] Hematocrit (Bld) [Volume fraction] 28.5 % Low 36.0-46.0 [facility] Comment on above: Order Comment: Speci men Type: BLOOD SPECIMENOrdering Facility: [facility] Address: [address] [place] [address] Performed By: #### 5 8410-2 ####[facility] [id number] [address] [place] Hemoglobin (Bld) [Mass/Vol] 9.0 g/dL Low 11.5-15.5 [facility] Comment on above: Order Comment: Speci men Type: BLOOD SPECIMENOrdering Facility: [facility] Address: [address] [place] [address] Performed By: #### 5 8410-2 ####[facility] [id number] [address] [place] MCH (RBC) [Entitic mass] 25.2 pg Low 26.0-34.0 [facility] Comment on above: Order Comment: Speci men Type: BLOOD SPECIMENOrdering Facility: [facility] Address: [address] [place] [address] Performed By: #### 5 8410-2 ####[facility] [id number] [address] [place] MCHC (RBC) [Mass/Vol] 31.6 g/dL Normal 30.5-36.0 [facility] Comment on above: Order Comment: Speci men Type: BLOOD SPECIMENOrdering Facility: [facility] Address: [address] [place] [address] Performed By: #### 5 8410-2 ####[facility] [id number] [place] [address] [place] MCV (RBC) [Entitic vol] 79.8 fL Low 80.0-100.0 [facility] Comment on above: Order Comment: Speci men Type: BLOOD SPECIMENOrdering Facility: [facility] Address: [address] [place] [address] Performed By: #### 5 8410-2 ####[facility] [id number] [address] [facility] Nucleated RBC (Bld) [#/Vol] 10*3/uL Normal <0.01 [facility] Comment on above: Order Comment: Speci men Type: BLOOD SPECIMENOrdering Facility: [facility] Address: [address] [place] [address] Performed By: #### 5 8410-2 ####[facility] [id number] [place] [address] [place] Platelet mean volume (Bld) [Entitic vol] 10.6 fL Normal 9.0-12.7 [facility] Comment on above: Order Comment: Speci men Type: BLOOD SPECIMENOrdering Facility: [facility] Address: [address] [place] [address] Performed By: #### 5 8410-2 ####[facility] [id number] [place] [address] [place] Platelets (Bld) [#/Vol] 251 10*3/uL Normal 150-400 [facility] Comment on above: Order Comment: Speci men Type: BLOOD SPECIMENOrdering Facility: [facility] Address: [address] [place] [address] Performed By: #### 5 8410-2 ####[facility] [id number] [place] [address] [place] RBC (Bld) [#/Vol] 3.57 10*6/uL Low 3.90-5.20 [facility] Comment on above: Order Comment: Speci men Type: BLOOD SPECIMENOrdering Facility: [facility] Address: [address] [place] [address] Performed By: #### 5 8410-2 ####[facility]ORYCLIA [id number] [place] [id number] [facility] WBC (Bld) [#/Vol] 7.47 10*3/uL Normal 3.70-11.00 [facility] Comment on above: Order Comment: Speci men Type: BLOOD SPECIMENOrdering Facility: [facility] Address: [address] [place] [address] Performed By: #### 5 8410-2 ####[facility]ORYCLIA [id number] [address] CNDSon 06-23-2023 CNDS HNO ID: [id number] Author: Annie Martinez APRN.COURT DEPUTY Service: Urology Author Type: Nurse Practitioner Type: Discharge Summary Filed: 06/23/2023 12:15 PM Note Text: Attestation signed by Taurus Ballard MD at 06/23/2023 1:43 PM The above noted history, physical, assessment and plan were reviewed with the provider and critical portions of the HANDP were confirmed. I agree with the plan above and provided direct supervision of the above provider during this patient's care. Taurus Ballard MD [facility] [place] [phone] or (111) [facility] C O N F I D E N T I A L I N F O R M A T I O N ------ [facility] DOCUMENT DISCHARGE SUMMARY Patient Name: Aislinn Wheeler Patient Admission Date: 06/22/2023 Discharge Date: 06/23/23 Attending Physician: Taurus Ballard MD Principal Diagnosis: Renal cyst c/f renal neoplasm Secondary Diagnoses: DM2 POA Chronic Pain POA Anemia chronic POA CKD POA Asthma POA Operations During Hospitalization: Procedure(s) (LRB): ROBOTIC LAPAROSCOPIC NEPHRECTOMY PARTIAL (N/A) Procedures Performed While Hospitalized: Intubation Reason for Hospitalization: 63 year old female with renal cyst with concern for possible renal neoplasm. Hospital Course: Aislinn Wheeler underwent Procedure(s) (LRB): ROBOTIC LAPAROSCOPIC NEPHRECTOMY PARTIAL (N/A) on 06/22/2023. Subsequently she was transferred to a regular nursing unit. Pain was initially controlled with intravenous/oral analgesia and diet was restricted until signs of returning bowel function. Then diet was advanced as tolerated and they were transitioned to oral pain medication as well as restarted on prior to admission medications. On post-operative day 1 she was afebrile for approximately 24 hours, ambulating without difficulty, tolerating a regular diet, passing flatus, and pain was adequately controlled with oral medication. The patient was discharged home with instructions to return for follow up in clinic postoperatively. The chaves catheter was removed. The surgical drain was removed . Patient Condition at Discharge: Stable Discharge Disposition: Home Information Provided to the Patient: Patient was given a copy of Discharge Instructions Discharge Medications: Medication List START taking these medications acetaminophen 325 mg tablet Commonly known as: TylenoL Take 2 tablets by mouth every 6 hours as needed for pain. docusate sodium 100 mg capsule Commonly known as: COLACE Take 1 capsule by mouth two times a day. CONTINUE taking these medications albuterol HFA 90 mcg/actuation inhaler Commonly known as: PROVENTIL HFA, VENTOLIN HFA FeroSuL 325 mg (65 mg iron) tablet Generic drug: ferrous sulfate insulin glargine 100 unit/mL injection Commonly known as: LANTUS Inject 25 Units subcutaneously daily at bedtime. NOVOLOG FLEXPEN U-100 INSULIN SUBCUTANEOUS pregabalin 150 mg capsule Commonly known as: LYRICA VITAMIN B-12 1,000 mcg Tab Generic drug: cyanocobalamin Where to Get Your Medications These medications were sent to [facility] [address] [place] [address] Hours: Monday-Monday: 7am-7pm, Sat: 9am-1pm acetaminophen 325 mg tablet docusate sodium 100 mg capsule Future Appointments: No future appointments. Electronically SIGNED by Licensed Independent Practitioner: Annie Martinez APRN.[facility] 06-23-2023 [facility] AISLINN WHEELER ([id number]) 1960 F Date Time Provider Department 06/23/23 [facility] your visit today, we recorded the following information about you: Heidy Garcia RN 06/23/2023 9:05 AM Signed Patient had left robotic partial nephrectomy by Dr. Ballard on 06/22/2023 Will call for surgical follow up once discharged Heidy Garcia RN 06/26/2023 10:45 AM Signed Patient phone number non functioning. Active in [employer], will send message inquiring on how she's feeling post-operatively. Vonnie Wilder RN 06/27/2023 10:15 AM Signed Spoke with grand daughter, Chloe, as this office is unable to reach patient for post op call. Chloe reports, that patient's phone is turned off, and she does not know how to use MyChart. Chloe reports that patient went to [place] [facility] ED due to excruciating pain -was given Morphine and discharged to home without analgesic prescription. She will check on patient today and have her turn on her phone. Will update physician. Allergies As of Date: 06/23/2023 Noted Allergy Reaction LATEX 02/05/2020 2 - Rash Comments: Added based on information entered during case entry, please review and add reactions, type, and severity as needed Date Reviewed: 06/22/2023 Reviewed by: Afia Lanier, REY - Fully Assessed Reason for Visit: Surgical Followup [104] Prescriptions as of 06/27/2023 - acetaminophen (TYLENOL) 325 mg tablet Take 2 tablets by mouth every 6 hours as needed for pain. - docusate sodium (COLACE) 100 mg capsule Take 1 capsule by mouth two times a day. - FEROSUL 325 mg (65 mg iron) tablet Take 1 tablet by mouth three times daily with meals. - VITAMIN B-12 1,000 mcg tab Take 1,000 mcg by mouth once daily. - insulin aspart (NOVOLOG FLEXPEN U-100 INSULIN SUBCUTANEOUS) Inject subcutaneously. Sliding scale - insulin glargine (LANTUS) 100 unit/mL injection Inject 25 Units subcutaneously daily at bedtime. - albuterol HFA (PROVENTIL HFA, VENTOLIN HFA) 90 mcg/actuation inhaler Inhale 2 Puffs as instructed every 6 hours as needed for wheezing/shortness of breath. - pregabalin (LYRICA) 150 mg capsule Take 150 mg by mouth three times daily. Problem List As Of Date 06/23/2023 Noted Resolved Ureterolithiasis [N20.1] 01/17/2021 Acute bilateral obstructive uropathy [N13.9] 01/17/2021 Pyelonephritis [N12] 01/17/2021 01/21/2021 Sepsis (HCC) [A41.9] 01/17/2021 01/21/2021 Hyponatremia [E87.1] 01/17/2021 01/21/2021 Hyperkalemia [E87.5] 01/17/2021 01/21/2021 ANATOLIY (acute kidney injury) (HCC) [N17.9] 01/17/2021 Hydronephrosis due to obstruction of ureter [N1*01/17/2021 01/21/2021 Generalized weakness [R53.1] 01/17/2021 Falls frequently [R29.6] 01/17/2021 Acute cystitis without hematuria [N30.00] 01/18/2021 01/21/2021 Severe protein-calorie malnutrition (HCC) [E43] 01/19/2021 Bladder outlet obstruction [N32.0] 01/29/2021 Primary hypertension [I10] 06/06/2023 Mild intermittent asthma without complication [*06/06/2023 History of TIA (transient ischemic attack) [Z86*06/06/2023 MVP (mitral valve prolapse) [I34.1] 06/06/2023 MILDRED (iron deficiency anemia) [D50.9] 06/06/2023 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] 06/06/2023 Neurogenic bladder [N31.9] 06/06/2023 Stage 3a chronic kidney disease (HCC) [N18.31] 06/06/2023 Type 2 diabetes mellitus with hyperglycemia, wi*06/06/2023 Renal neoplasm [D49.519] 06/22/2023 Encounter Status:Closed by HEIDY GARCIA on 06/23/23 [facility] NURSING PROGon 06-23-2023 NURSING PROG HNO ID: [id number] Author: Gertrude Cordoav, RN Service: ? Author Type: Registered Nurse Type: Nursing Progress Note Filed: 06/23/2023 3:51 PM Note Text: Other: 1112: Page sent to Urology. Patients chaves catheter discontinue this AM. Per patient, she straight caths herself at home. Need orders at this time to straight cath. 1130: Urology at bedside orders placed to straight cath patient. Aware of elevated BP's. Patient complaining of pain, PRN pain medication given. 1450: Secure chat sent to urology. Patients BP elevated at 169/68. Per patient she states that she is suppose to take BP medications at home but she hasn't been taking them. 1500: Spoke with Annie Martinez, awaiting PRN order of hydralazine. 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 Post Anesthesia Patient Status Patient Evaluation: PACU. PACU/ICU Patient Condition: stable. Neurological Status: aware and responsive. Pulmonary Status: breathing comfortably on room air Airway Control: returned to baseline unsupported. Cardiovascular Status: stable. Pain Management: clinically adequate Postoperative Hydration: acceptable. Intraoperative Events: no significant anesthesia events Post Operative Nausea/Vomiting Status: no significant post operative nausea or vomiting Recommendation: continue current plan of care. Anesthesia Observations No Documentation SIGNATURE: Rikki Jhaveri MD PATIENT NAME: Aislinn Wheeler DATE: June 22, 2023 TIME: 2:18 PM CSN: [id number] [facility] ANES PRE-OPon 06-22-2023 ANES PRE-OP HNO ID: [id number] Author: Rikki Jhaveri MD Service: Anesthesiology Author Type: Anesthesiologist Type: Anesthesia Preprocedure Evaluation Filed: 06/22/2023 9:55 AM Note Text: ANESTHESIOLOGY DAY OF SURGERY NOTE : 1960 Procedure Information Date/Time: 06/22/23 1115 Procedure: ROBOTIC LAPAROSCOPIC NEPHRECTOMY PARTIAL (Abdomen quadrant upper) Location: [facility] OR01A / [facility] OR Surgeons: Taurus Ballard MD Estimated body mass index is 25.58 kg/m? as calculated from the following: Height as of 06/06/23: 152.4 cm (5'). Weight as of 06/06/23: 59.4 kg (131 lb). Most recent hematocrit and potassium results: Hematocrit 37.2 06/06/2023 Potassium 5.9 06/06/2023 Relevant Problems CARDIO (+) MVP (mitral valve prolapse) (+) Primary hypertension ENDO (+) Type 2 diabetes mellitus with hyperglycemia, with long-term current use of insulin (HCC) -RENAL (+) ANATOLIY (acute kidney injury) ([facility]) (+) Stage 3a chronic kidney disease ([facility]) NEURO-PSYCH (+) History of TIA (transient ischemic attack) PULMONARY (+) Mild intermittent asthma without complication I - PHYSICAL EVALUATION AIRWAY Patient intubated: No. Tracheostomy tube not present Mallampati: II. TM distance: >3 FB. Neck ROM: full ROM without neurological symptoms. Mouth opening: adequate. Short neck: no. Thick neck: no DENTAL Dental findings: teeth intact. Additional exam findings: no II - ANESTHESIA PLAN ASA Score: 3 Anesthetic Plan: general Airway type: ETT The patient is not a current smoker. NPO Status: adequate Beta Renetta Monitoring Plan Monitoring plan: standard ASA and invasive hemodynamic monitoring. Monitoring method: arterial Line Post Procedure Analgesic Plan Postoperative analgesic plan: multimodal analgesia. Informed Consent Anesthetic risks, benefits, alternatives, personnel and consent discussed: yes. Patient / Responsible Democrat agrees to proceed: yes Patient / Surrogate agrees to blood products: Yes Potential Anesthesia issues that may suggest increased risk of complications or contraindication to planned procedure: none. No vitals data found for the desired time range. Facility-Administered Medications as of 06/22/2023 Medication Dose Route Frequency - lidocaine (PF) 10 mg/mL (1 %) 1-2 mg injection (XYLOCAINE) 0.1-0.2 mL INTRADERMAL PRN - lactated ringers iv infusion 5-30 mL/hr INTRAVENOUS CONTINUOUS - NaCl 0.9% iv flush bag 20 mL INTRAVENOUS PRN - ceFAZolin iv piggyback 2 g in D5W (iso-osmotic) 100 mL (ANCEF) 2 g INTRAVENOUS Pre-Op Once Outpatient Medications as of 06/22/2023 Medication Sig - FEROSUL 325 mg (65 mg iron) tablet Take 1 tablet by mouth three times daily with meals. - VITAMIN B-12 1,000 mcg tab Take 1,000 mcg by mouth once daily. - insulin aspart (NOVOLOG FLEXPEN U-100 INSULIN SUBCUTANEOUS) Inject subcutaneously. Sliding scale - insulin glargine (LANTUS) 100 unit/mL injection Inject 25 Units subcutaneously daily at bedtime. - albuterol HFA (PROVENTIL HFA, VENTOLIN HFA) 90 mcg/actuation inhaler Inhale 2 Puffs as instructed every 6 hours as needed for wheezing/shortness of breath. - pregabalin (LYRICA) 150 mg capsule Take 150 mg by mouth three times daily. - HYDROcodone-Acetaminoph en (NORCO) 7.5-325 mg per tablet Take 1 tablet by mouth three times daily as needed. I have interviewed and examined the patient. I have reviewed the medical record and/or the pre-anesthesia evaluation, pertinent labs, and test results. This contains updated information obtained within 48 hours of Surgery/Procedure. SIGNATURE: Rikki Jhaveri MD PATIENT NAME: Aislinn Wheeler DATE: June 22, 2023 TIME: 9:54 AM CSN: [id number] Normal [facility] Basic metabolic 2000 panelon 06-22-2023 Anion gap [Moles/Vol] 7 mmol/L Low 9-18 [facility] Comment on above: Order Comment: [place] Type: BLOOD SPECIMEN Ordering Facility: [facility] Address: [address] [place] [address] Performed By: #### 2 4321-2 #### [facility] CLIA [id number] [address] [place] [address] [place] Calcium [Mass/Vol] 7.5 mg/dL Low 8.5-10.2 [facility] Comment on above: Order Comment: [place] Type: BLOOD SPECIMEN Ordering Facility: [facility] Address: [address] [place] [address] Performed By: #### 2 4321-2 #### [facility] CLIA [id number] [address] [place] [address] [place] Chloride [Moles/Vol] 108 mmol/L High 97-105 [facility] Comment on above: Order Comment: Speci men Type: BLOOD SPECIMEN Ordering Facility: [facility] Address: [address] [place] [address] Performed By: #### 2 4321-2 #### [facility] CLIA [id number] [address] [place] [address] [place] CO2 [Moles/Vol] 19 mmol/L Low 22-30 [facility] Comment on above: Order Comment: Speci men Type: BLOOD SPECIMEN Ordering Facility: [facility] Address: [address] [place] [address] Performed By: #### 2 4321-2 #### [facility] CLIA [id number] [address] [place] [address] [place] Creatinine [Mass/Vol] 1.57 mg/dL High 0.58-0.96 [facility] Comment on above: Order Comment: Speci men Type: BLOOD SPECIMEN Ordering Facility: [facility] Address: [address] [place] [address] Performed By: #### 2 4321-2 #### [facility] CLIA [id number] [address] [place] [address] [place] Creatinine and Glomerular filtration rate.predicted panel (S/P/Bld) 36 mL/min/1.73m??? Low >=60 [facility] Comment on above: Order Comment: Speci men Type: BLOOD SPECIMEN Ordering Facility: [facility] Address: [address] [place] [address] Result Comment: Donna mated Glomerular Filtration Rate (eGFR) is calculated using the 2020 CKD-EPI creatinine equation. This equation utilizes serum creatinine, sex, and age as parameters. The creatinine assay has traceable calibration to isotope dilution-mass spectrometry. Refer to KDIGO guidelines for clinical interpretation. In patients with unstable renal function, e.g. those with acute kidney injury, the eGFR may not accurately reflect actual GFR. Performed By: #### 2 4321-2 #### [facility] CLIA [id number] [address] [place] [address] [place] Glucose [Mass/Vol] 275 mg/dL High 74-99 [facility] Comment on above: Order Comment: Diallo reinier Type: BLOOD SPECIMEN Ordering Facility: [facility] Address: [address] [place] [address] Result Comment: The [place] Diabetes Association (ADA) provides guidance for cutoff values for fasting glucose and random glucose. The ADA defines fasting as no caloric intake for at least 8 hours. Fasting plasma glucose results between 100 to 125 mg/dL indicate increased risk for diabetes (prediabetes). Fasting plasma glucose results greater than or equal to 126 mg/dL meet the criteria for diagnosis of diabetes. In the absence of unequivocal hyperglycemia, results should be confirmed by repeat testing. In a patient with classic symptoms of hyperglycemia or hyperglycemic crisis, random plasma glucose results greater than or equal to 200 mg/dL meet the criteria for diagnosis of diabetes. Reference: Standards of Medical Care in Diabetes 2016, [place] [employer] Association. Diabetes Care. 2016.39(Suppl 1). Performed By: #### 2 4321-2 #### [facility] CLIA [id number] [address] [place] [address] [place] Potassium [Moles/Vol] 5.3 mmol/L High 3.7-5.1 [facility] Comment on above: Order Comment: [place] Type: BLOOD SPECIMEN Ordering Facility: [facility] Address: [address] [place] [address] Performed By: #### 2 4321-2 #### [facility] CLIA [id number] [address] [place] [address] [place] Sodium [Moles/Vol] 134 mmol/L Low 136-144 [facility] Comment on above: Order Comment: Speci men Type: BLOOD SPECIMEN Ordering Facility: [facility] Address: [address] [place] [address] Performed By: #### 2 4321-2 #### [facility] CLIA [id number] [address] [place] [address] [place] Urea nitrogen [Mass/Vol] 26 mg/dL High 7-21 [facility] Comment on above: Order Comment: Speci men Type: BLOOD SPECIMEN Ordering Facility: [facility] Address: [address] [place] [address] Performed By: #### 2 4321-2 #### [facility] CLIA [id number] [place] [address] [place] CBC panel Auto (Bld)on 06-22 Erythrocyte distribution width (RBC) [Ratio] 14.3 % Normal 11.5-15.0 [facility] Comment on above: Order Comment: Speci men Type: BLOOD SPECIMENOrdering Facility: [facility] Address: [address] [place] [address] Performed By: #### 5 8410-2 ####[facility] [id number] [address] [place] Hematocrit (Bld) [Volume fraction] 27.8 % Low 36.0-46.0 [facility] Comment on above: Order Comment: Speci men Type: BLOOD SPECIMENOrdering Facility: [facility] Address: [address] [place] [address] Performed By: #### 5 8410-2 ####[facility] [id number] [place] [address] [place] Hemoglobin (Bld) [Mass/Vol] 8.9 g/dL Low 11.5-15.5 [facility] Comment on above: Order Comment: Speci men Type: BLOOD SPECIMENOrdering Facility: [facility] Address: [address] [place] [address] Performed By: #### 5 8410-2 ####[facility] [id number] [place] [address] [place] MCH (RBC) [Entitic mass] 25.3 pg Low 26.0-34.0 [facility] Comment on above: Order Comment: Speci men Type: BLOOD SPECIMENOrdering Facility: [facility] Address: [address] [place] [address] Performed By: #### 5 8410-2 ####[facility]IA [id number] [place] [address] [place] MCHC (RBC) [Mass/Vol] 32.0 g/dL Normal 30.5-36.0 [facility] Comment on above: Order Comment: Speci men Type: BLOOD SPECIMENOrdering Facility: [facility] Address: [address] [place] [address] Performed By: #### 5 8410-2 ####[facility]IA [id number] [place] [address] [place] MCV (RBC) [Entitic vol] 79.0 fL Low 80.0-100.0 [facility] Comment on above: Order Comment: Speci men Type: BLOOD SPECIMENOrdering Facility: [facility] Address: [address] [place] [address] Performed By: #### 5 8410-2 ####[facility]ORYCLIA [id number] [place] [address] [place] Nucleated RBC (Bld) [#/Vol] 10*3/uL Normal <0.01 [facility] Comment on above: Order Comment: Speci men Type: BLOOD SPECIMENOrdering Facility: [facility] Address: [address] [place] [address] Performed By: #### 5 8410-2 ####[facility]ORYCLIA [id number] [place] [address] [place] Platelet mean volume (Bld) [Entitic vol] 10.8 fL Normal 9.0-12.7 [facility] Comment on above: Order Comment: Speci men Type: BLOOD SPECIMENOrdering Facility: [facility] Address: [address] [place] [address] Performed By: #### 5 8410-2 ####[facility]ORYCLIA [id number] [place] [address] [place] Platelets (Bld) [#/Vol] 230 10*3/uL Normal 150-400 [facility] Comment on above: Order Comment: Speci men Type: BLOOD SPECIMENOrdering Facility: [facility] Address: [address] [place] [address] Performed By: #### 5 8410-2 ####[facility] [id number] [place] [address] [place] RBC (Bld) [#/Vol] 3.52 10*6/uL Low 3.90-5.20 [facility] Comment on above: Order Comment: Speci men Type: BLOOD SPECIMENOrdering Facility: [facility] Address: [address] [place] [address] Performed By: #### 5 8410-2 ####[facility] [id number] [place] [id number] [place] WBC (Bld) [#/Vol] 6.04 10*3/uL Normal 3.70-11.00 [facility] Comment on above: Order Comment: Speci men Type: BLOOD SPECIMENOrdering Facility: [facility] Address: [address] [place] [address] Performed By: #### 5 8410-2 ####[facility] [id number] [place] [id number] [facility] NURSING PROGon 06-22-2023 NURSING PROG HNO ID: [id number] Author: Afia Lanier RN Service: Nursing Author Type: Registered Nurse Type: Nursing Progress Note Filed: 06/22/2023 5:56 PM Note Text: Transfer Note: PATIENT NAME: Aislinn Wheeler Patient Location: [place] [address] [address] Room: [place] [address] Patient transferred into room/unit [facility] in stable condition. Actions taken: No futher actions taken at this time. Will continue to monitor and check with patient. Normal [facility] NURSING PROG HNO ID: [id number] Author: Linda Nicholson RN Service: Nursing Author Type: Registered Nurse Type: Nursing Progress Note Filed: 06/22/2023 12:20 PM Note Text: pre-incision juan area noted to have redness and inflamed, prior to prepping and putting chaves in. [facility] NURSING PROG HNO ID: [id number] Author: Elva Joy RN Service: Nursing Author Type: Registered Nurse Type: Nursing Progress Note Filed: 06/22/2023 9:48 AM Note Text: PATIENT EDUCATION TOPIC: PROCEDURE / SURGERY: Pre-op Teaching: Surgery PATIENT NAME: Aislinn Wheeler PATIENT LOCATION: [facility] OR POOL/[facility] OR POOL READINESS TO LEARN COGNITIVE ABILITY: Alert and oriented MOTIVATION TO LEARN: Eager FAMILY SUPPORT: Unable to assess - Family not present INSTRUCTION PROVIDED TO: Patient PATIENT LEARNS BEST BY: Individual Instruction Written Instruction - Hand-outs Verbal Instruction FACTORS AFFECTING LEARNING: None PHYSICAL LIMITATIONS AFFECTING LEARNING: None LEARNING RESPONSE DIAGNOSIS: ADULT: See HANDP PATIENT/FAMILY RESPONSE: Information received as demonstrated by interest and questions METHOD OF INSTRUCTION: Individual instruction Written instruction - handouts Verbal instruction FOLLOW-UP PLAN: Patient instructed to call with any further issues INSTRUCTIONAL AIDS USED: NA SUPPLEMENTAL MATERIAL PROVIDED TO PATIENT: None REFERRAL (RECOMMENDATION): None Electronically Signed By: Elva Joy [facility] OPERATIVE NOon 06-22-2023 OPERATIVE NO HNO ID: [id number] Author: Taurus Ballard MD Service: Urology Author Type: Physician Type: Operative Report Filed: 06/22/2023 1:48 PM Note Text: OPERATIVE/PROCEDURE REPORT LOG ID: [id number] Surgery/Procedure Date: 06/22/2023 Incision/Procedure Start Time: 11:49 AM Incision Close/Procedure End Time: 1:55 PM Surgeon(s)/Proceduralis t(s) and Bat Carrier(s): Surgeon(s) and Role: * Taurus Ballard MD - Primary * Jeet De La Fuente MD - Resident - Assisting Physician Bat Carrier: Rocael Rios PA-C; Alicia Harmon PA-C Procedure(s): 1) left robotic partial nephrectomy Anesthesia: General Indications: 63 year old female with history of left cystic renal neoplasm. After discussion of risks, benefits, complications, and alternatives, patient elected to proceed with left robotic partial nephrectomy. Operative Findings: Cystic renal neoplasm enucleated from the left kidney. Grossly negative margins. Low suspicion for malignancy. Close proximity to the collecting system which was reinforced. Small amount of urine leak oversewn with a 3-0 V-Loc. Procedure Details: Patient was brought to the operating room, and multidisciplinary surgical huddle confirmed the correct patient, operative plan, perioperative antibiotics, pertinent medical history, drug allergies, and necessary equipment. General anesthesia was induced and perioperative antibiotics Ancef 2 g IV were administered. Patient was placed in right lateral decubitus position with the left side up, prepped, and draped in the usual sterile fashion. An 8 mm incision was made in the skin at the level of the umbilicus at the lateral border the rectus. Veress needle was then inserted to the peritoneal space and peritoneum was insufflated without difficulty. Once we are fully insufflated the Veress needle was removed and an 8 mm robotic port was placed. Inspection with the camera revealed no injury to any structures during insufflation. The remaining ports were then placed under direct vision. At the lateral border the rectus and the costal margin a left arm robotic port was placed. Approximately 7 cm inferior to the left arm port at the lateral border the rectus a robotic camera port was placed. Approximately 7 cm inferior to the initial access port a fourth arm robotic port was placed. Finally just superior to the umbilicus a 12 mm patient observation assistant port was placed. At this point the robot was docked and we proceeded to mobilize the left colon off of the kidney and large cyst. We identified the gonadal vein and ureter. The cyst was prominent and we decided not to dissected out the renal hilum. We proceeded with a intraoperative ultrasound which revealed that this was an anechoic cyst with simple loculations. The decision was made to enucleate this cystic lesion. We entered the cyst away from the kidney and aspirated all the fluid. Approximately 300 cc of fluid was obtained. At this point we dissected the wall of the cyst off of the kidney circumferentially and placed at his side. In 1 area we appear to be in close proximity to the renal collecting system and this area was oversewn with a 3-0 V-Loc suture. Once this was oversewn there was no further fluid seen coming from the site. We proceeded to tack to rodeos and the defect circumferentially filling the potential space. At the conclusion there was excellent hemostasis. A drain was brought out the initial access port and secured to the skin in a standard manner. We then proceeded to extract the specimen in a specimen bag out of the supraumbilical patient observation assistant port. This port was closed with a Liam-Jimmie device and 2 0 Vicryl ties. We then desufflated the abdomen and all ports were removed under direct vision. The patient was awakened from anesthesia, extubated in the operating room, and taken to the recovery room in stable condition. Pre-Op/Pre-Procedure Diagnosis: Left renal neoplasm Post-Op/Post-Procedure Diagnosis: Same Estimated Blood Loss: 50 cc Specimens: Left renal neoplasm Implantable Devices: None Drains: 10 flat JUAN drain, 16 Tajik Chaves catheter Complications: None Accidental Punctures/Lacerations: None I/primary surgeon/proceduralist performed the procedure with assistance. SIGNATURE: Taurus Ballard MD PATIENT NAME: Aislinn Wheeler DATE: June 22, 2023 TIME: 1:42 PM PAGER/CONTACT #: [facility] SURGICAL PATHOLOGYon 023 CASE REPORT [facility] Comment on above: Order Comment: Speci men Type: TISSUE SPECIMENOrdering Facility: [facility] Address: [address] [place] [address] Result Comment: Surg ica Pathology Report Case: [id number] Authorizing Provider: Taurus Ballard MD Collected: 06/22/2023 01:38 PM Ordering Location: [facility] Received: 06/22/2023 03:16 PM Operating Room Pathologist: Barron Cheema MD Specimen: KIDNEY PARTIAL NEPHRECTOMY LEFT, left renal neoplasm Performed By: #### S ####[facility] [id number] [address] OF [facility] [id number] [address] [place] CLINICAL HISTORY [facility] Comment on above: Order Comment: Speci men Type: TISSUE SPECIMENOrdering Facility: [facility] Address: [address] [place] [address] Result Comment: Pre- op diagnosis: 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 As in this patient, these tumors are overwhelmingly found in women for incompletely understood reasons. In the past, the term cystic nephroma was also used for similar tumors with minimal to no solid component; however, currently this term is recommended for use only in the pediatric setting, in which cystic nephroma has different clinical associations and genetics, considered a separate entity. [facility] Comment on above: Order Comment: Speci men Type: TISSUE SPECIMENOrdering Facility: [facility] Address: [address] [place] [address] Performed By: #### S ####[facility]CLIA [id number] [address] LABORATORYCLIA [id number] [address] FINAL DIAGNOSIS [facility] Comment on above: Order Comment: Speci men Type: TISSUE SPECIMENOrdering Facility: [facility] Address: [address] [place] [address] Result Comment: Emre mcgrath, left, partial nephrectomy: - 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 - 7.2 cm gross greatest dimension of tissue specimen (defer to clinical/imaging for overall lesion size). Performed By: #### S ####[facility]CLIA [id number] [address] LAB[facility]ORYCLIA [id number] [address] FINAL PERFORMING LAB [facility] Comment on above: Order Comment: Speci men Type: TISSUE SPECIMENOrdering Facility: [facility] Address: [address] [place] [address] Result Comment: Diag nostic interpretation performed at [facility], [address] [place] [address] CLIA# [id number] Data Recovery Planner: Oswald Munguia M.D. Performed By: #### S ####[facility] LABCLIA [id number] [place] [id number] [facility]ORYCLIA [id number] [address] GROSS DESCRIPTION Normal [facility] Comment on above: Order Comment: Speci men Type: TISSUE SPECIMENOrdering Facility: [facility] Address: [address] [place] [address] Result Comment: Emre MCGRATH PARTIAL NEPHRECTOMY LEFT Received in formalin designated left renal neoplasm is a segment of chilel-purple membranous tissue which weighs 39 g and measures 7.2 x 5.5 x 3.5 cm. There is cautery present at the margin which is inked orange. The surfaces are smooth with no masses or papillations grossly appreciated. Sectioning does not reveal any masses. Lathing Supervisor sections are submitted in 5 cassettes. BF June 23, 2023 9:00 AM Gross examination performed at [facility], [address] [place] [address] CLIA # [id number] Performed By: #### S ####[facility] LABCLIA [id number] [address] LABORATORYCLIA [id number] [address] OF [facility] AISLINN WHEELER ([id number]) 1960 F Date Time Provider Department 06/15/23 VONNIE WILDERRaquel During your visit today, we recorded the following information about you: Vonnie Wilder RN 06/15/2023 11:25 AM Signed Attempted to call patient for pre op instructions.mailbox is full and unable to LVM. Will try again. Vonnie Wilder RN 06/16/2023 10:34 AM Signed Attempted to call patient for pre op instructions.mailbox is full and unable to LVM. Will try again. Allergies As of Date: 06/15/2023 Noted Allergy Reaction LATEX 02/05/2020 2 - Rash Comments: Added based on information entered during case entry, please review and add reactions, type, and severity as needed Date Reviewed: 06/06/2023 Reviewed by: Susan Cobos LPN - Fully Assessed Reason for Visit: Pre-Op Teaching [134] Prescriptions as of 06/20/2023 - FEROSUL 325 mg (65 mg iron) tablet Take 1 tablet by mouth three times daily with meals. - VITAMIN B-12 1,000 mcg tab Take 1,000 mcg by mouth once daily. - insulin aspart (NOVOLOG FLEXPEN U-100 INSULIN SUBCUTANEOUS) Inject subcutaneously. Sliding scale - insulin glargine (LANTUS) 100 unit/mL injection Inject 25 Units subcutaneously daily at bedtime. - albuterol HFA (PROVENTIL HFA, VENTOLIN HFA) 90 mcg/actuation inhaler Inhale 2 Puffs as instructed every 6 hours as needed for wheezing/shortness of breath. - pregabalin (LYRICA) 150 mg capsule Take 150 mg by mouth three times daily. - HYDROcodone-Acetaminoph en (NORCO) 7.5-325 mg per tablet Take 1 tablet by mouth three times daily as needed. Problem List As Of Date 06/15/2023 Noted Resolved Ureterolithiasis [N20.1] 01/17/2021 Acute bilateral obstructive uropathy [N13.9] 01/17/2021 Pyelonephritis [N12] 01/17/2021 01/21/2021 Sepsis (HCC) [A41.9] 01/17/2021 01/21/2021 Hyponatremia [E87.1] 01/17/2021 01/21/2021 Hyperkalemia [E87.5] 01/17/2021 01/21/2021 ANATOLIY (acute kidney injury) (HCC) [N17.9] 01/17/2021 Hydronephrosis due to obstruction of ureter [N1*01/17/2021 01/21/2021 Generalized weakness [R53.1] 01/17/2021 Falls frequently [R29.6] 01/17/2021 Acute cystitis without hematuria [N30.00] 01/18/2021 01/21/2021 Severe protein-calorie malnutrition (HCC) [E43] 01/19/2021 Bladder outlet obstruction [N32.0] 01/29/2021 Primary hypertension [I10] 06/06/2023 Mild intermittent asthma without complication [*06/06/2023 History of TIA (transient ischemic attack) [Z86*06/06/2023 MVP (mitral valve prolapse) [I34.1] 06/06/2023 MILDRED (iron deficiency anemia) [D50.9] 06/06/2023 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 Sara Augustine ([phone]) office (endocrinology) regarding clearance for upcoming surgery on 06/22/23 Pt saw physician on 06/08/23 and medications were changed. Pt will follow up with them on 06/20/[address] Augustine does not do surgical clearance - she only manages the patient's diabetes. He will fax over office notes to be reviewed. Derik Fernandez 06/12/2023 9:36 AM Signed Office Notes on 06/08/23 with endocrinology, Sara Dai CNP received and scanned into [employer] to view. Allergies As of Date: 06/12/2023 Noted Allergy Reaction LATEX 02/05/2020 2 - Rash Comments: Added based on information entered during case entry, please review and add reactions, type, and severity as needed Date Reviewed: 06/06/2023 Reviewed by: Susan Cobos LPN - Fully Assessed Reason for Visit: endocrinology clearance [Other] Prescriptions as of 06/12/2023 - FEROSUL 325 mg (65 mg iron) tablet Take 1 tablet by mouth three times daily with meals. - VITAMIN B-12 1,000 mcg tab Take 1,000 mcg by mouth once daily. - insulin aspart (NOVOLOG FLEXPEN U-100 INSULIN SUBCUTANEOUS) Inject subcutaneously. Sliding scale - insulin glargine (LANTUS) 100 unit/mL injection Inject 25 Units subcutaneously daily at bedtime. - albuterol HFA (PROVENTIL HFA, VENTOLIN HFA) 90 mcg/actuation inhaler Inhale 2 Puffs as instructed every 6 hours as needed for wheezing/shortness of breath. - pregabalin (LYRICA) 150 mg capsule Take 150 mg by mouth three times daily. - HYDROcodone-Acetaminoph en (NORCO) 7.5-325 mg per tablet Take 1 tablet by mouth three times daily as needed. Problem List As Of Date 06/12/2023 Noted Resolved Ureterolithiasis [N20.1] 01/17/2021 Acute bilateral obstructive uropathy [N13.9] 01/17/2021 Pyelonephritis [N12] 01/17/2021 01/21/2021 Sepsis (HCC) [A41.9] 01/17/2021 01/21/2021 Hyponatremia [E87.1] 01/17/2021 01/21/2021 Hyperkalemia [E87.5] 01/17/2021 01/21/2021 ANATOLIY (acute kidney injury) (HCC) [N17.9] 01/17/2021 Hydronephrosis due to obstruction of ureter [N1*01/17/2021 01/21/2021 Generalized weakness [R53.1] 01/17/2021 Falls frequently [R29.6] 01/17/2021 Acute cystitis without hematuria [N30.00] 01/18/2021 01/21/2021 Severe protein-calorie malnutrition (HCC) [E43] 01/19/2021 Bladder outlet obstruction [N32.0] 01/29/2021 Primary hypertension [I10] 06/06/2023 Mild intermittent asthma without complication [*06/06/2023 History of TIA (transient ischemic attack) [Z86*06/06/2023 MVP (mitral valve prolapse) [I34.1] 06/06/2023 MILDRED (iron deficiency anemia) [D50.9] 06/06/2023 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] 06/06/2023 Neurogenic bladder [N31.9] 06/06/2023 Stage 3a chronic kidney disease (HCC) [N18.31] 06/06/2023 Type 2 diabetes mellitus with hyperglycemia, wi*06/06/2023 Encounter Status:Closed by LILIANA VELASCO on 06/12/23 [facility] C Urineon 06-10-2023 Bacteria identified Cx Nom (U) Microbiology PROCEDURE: Urine Culture [R1] SOURCE: U CleanCatch BODY SITE: COLLECTED DATE/TIME: 06/08/2023 14:50 EDT RECEIVED DATE/TIME: 06/08/2023 19:41 EDT START DATE/TIME: 06/08/2023 19:41 EDT FREE TEXT SOURCE: HEIDY ARNOLD PA-C, PA-C, JENNIFER E FINAL REPORTS Final Report [] Verified Date/Time: 06/10/2023 09:50 EDT >100,000 cfu/ml Escherichia coli SUSCEPTIBILITY RESULTS ____ LEGEND: S=Susceptible, N/R=Not Reported, Blank=Data not available, or drug not advisable or tested, I=Intermediate, ESBL=Extended spectrum beta-lactamase, R=Resistant, TFG=Thymidine-dependent strain, VINEET=Beta-lactamase positive, LOCO=mcg/m;(mg/L), S*=Predicted susceptible interp, R*=Predicted resistant interp ___ EC Antibiotic LOCO Dilutn LOCO Interp Amikacin <=16 S Ampicillin <=8 S Ampicillin/ <=8/4 S Sulbactam Aztreonam <=4 S Cefazolin <=2 S Cefepime <=2 S Cefoxitin <=8 S Ceftazidime <=1 S Ceftazidime/ <=8 S Avibactam Ceftriaxone <=1 S Ciprofloxacin <=1 S Ertapenem <=0.5 S Gentamicin <=4 S Levofloxacin <=2 S Meropenem <=1 S Nitrofurantoin <=32 S Piperacillin/ <=16 S Tazobactam Tetracycline <=4 S Tigecycline <=2 S Tobramycin <=4 S Trimethoprim/ <=2/38 S Sulfa Performing Locations R1: This test was performed at: [facility], [address] [place] [address], [phone] , , [facility] Comment on above: Performed By: #### 2 [id number] #### [facility] [address] [place] [address] [facility] 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 Will await return call Allergies As of Date: 06/09/2023 Noted Allergy Reaction LATEX 02/05/2020 2 - Rash Comments: Added based on information entered during case entry, please review and add reactions, type, and severity as needed Date Reviewed: 06/06/2023 Reviewed by: Susan Cobos LPN - Fully Assessed Reason for Visit: Dental Clearance - Open Heart Surgery [1291] Prescriptions as of 06/09/2023 - FEROSUL 325 mg (65 mg iron) tablet Take 1 tablet by mouth three times daily with meals. - VITAMIN B-12 1,000 mcg tab Take 1,000 mcg by mouth once daily. - insulin aspart (NOVOLOG FLEXPEN U-100 INSULIN SUBCUTANEOUS) Inject subcutaneously. Sliding scale - insulin glargine (LANTUS) 100 unit/mL injection Inject 25 Units subcutaneously daily at bedtime. - albuterol HFA (PROVENTIL HFA, VENTOLIN HFA) 90 mcg/actuation inhaler Inhale 2 Puffs as instructed every 6 hours as needed for wheezing/shortness of breath. - pregabalin (LYRICA) 150 mg capsule Take 150 mg by mouth three times daily. - HYDROcodone-Acetaminoph en (NORCO) 7.5-325 mg per tablet Take 1 tablet by mouth three times daily as needed. Problem List As Of Date 06/09/2023 Noted Resolved Ureterolithiasis [N20.1] 01/17/2021 Acute bilateral obstructive uropathy [N13.9] 01/17/2021 Pyelonephritis [N12] 01/17/2021 01/21/2021 Sepsis (HCC) [A41.9] 01/17/2021 01/21/2021 Hyponatremia [E87.1] 01/17/2021 01/21/2021 Hyperkalemia [E87.5] 01/17/2021 01/21/2021 ANATOLIY (acute kidney injury) (HCC) [N17.9] 01/17/2021 Hydronephrosis due to obstruction of ureter [N1*01/17/2021 01/21/2021 Generalized weakness [R53.1] 01/17/2021 Falls frequently [R29.6] 01/17/2021 Acute cystitis without hematuria [N30.00] 01/18/2021 01/21/2021 Severe protein-calorie malnutrition (HCC) [E43] 01/19/2021 Bladder outlet obstruction [N32.0] 01/29/2021 Primary hypertension [I10] 06/06/2023 Mild intermittent asthma without complication [*06/06/2023 History of TIA (transient ischemic attack) [Z86*06/06/2023 MVP (mitral valve prolapse) [I34.1] 06/06/2023 MILDRED (iron deficiency anemia) [D50.9] 06/06/2023 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] 06/06/2023 Neurogenic bladder [N31.9] 06/06/2023 Stage 3a chronic kidney disease (HCC) [N18.31] 06/06/2023 Type 2 diabetes mellitus with hyperglycemia, wi*06/06/2023 Encounter Status:Closed by DERIK FERNANDEZ on 06/09/23 [facility] Glucose - FINGER STICKon Glucose [Mass/Vol] 436 mg/dL [facility] [place] 06-07-2023 [facility] Telephone ([facility]) AISLINN WHEELER ([id number]) 1960 F Date Time Provider Department 06/07/23 JENNY AGUILAR During your visit today, we recorded the following information about you: Jenny Aguilar APRN.CNP 06/07/2023 7:22 AM Signed Patient scheduled 06/22 for ROBOTIC LAPAROSCOPIC NEPHRECTOMY PARTIAL Patient is diabetic and currently on insulin. Pre-op labs completed yesterday. Her Hgb A1c is elevated. Hemoglobin A1C (%) Date Value 06/06/2023 13.3 Reviewed chart and last A1c was done 10/2022 and was 11%. Please review and advise and if she can proceed with surgery. I have a sent a copy of labs to PCP Thank you Jenny Aguilar APRN.[facility] Jenny Aguilar APRN.CNP 06/07/2023 8:26 AM Signed Per message from Dr. Ballard... She should see endocrinology preop to improve her blood sugar control I placed a consult to endocrinology. Resource nurses-- Can you please contact patient and advise that due to uncontrolled DM, needs to see endocrinology pre-op. Please assist in scheduling. Thank you BRITTNY Horowitz Sheri, APRN.CNP 06/07/2023 8:26 AM Signed Addended by: JENNY AGUILAR on: 06/07/2023 08:26 AM Modules accepted: Anitra Reyna RN 06/07/2023 10:06 AM Addendum Patient is scheduled with Sara Augustine on 06/19/2023 at 2:00PM. I called her office to confirm that she manages patient's diabetes. Will follow. Please let me know if anything else is needed. Thank you, Anitra Sanchez RN June 07, 2023 10:05 AM Anitra Sanchez RN 06/07/2023 2:17 PM Addendum Patient scheduled for a sooner appointment, aware of appointment with Sara Augustine CNP on 06/08/23 at 1:00PM. Explained to patient importance of making appointment and managing DM early. Patient verbalized understanding. Patient states she is currently not feeling well; however, she will call me tomorrow if she is unable to make it to her appointment. Anitra Sancehz RN June 07, 2023 2:14 PM Anitra Sanchez RN 06/12/2023 12:49 PM Signed Hari Alvarado, Please review OVN scanned into [employer] today from Sara Augustine APRN. Also, see TE 06/12/23. Thank you, Anitra Sanchez RN June 12, 2023 12:49 PM Jenny Aguilar APRN.[facility] 06/13/2023 11:[address] Chao, Patient saw endocrinology at [facility] 06/08 and had medications adjusted. I called patient to see how BG levels have been but unable to reach. She has a follow up with endo 06/20 Can she proceed with surgery since she saw endo? Thank you Jenny Aguilar APRN.[facility] DE[facility] Jenny Aguilar APRN.[facility] 06/15/2023 1:26 PM Signed Repeat labs completed 06/14 by PCP ( given to nurse to scan) Potassium 4.9 Cr 1.68 GFR 31 BG 303 Anesthesia team notified of uncontrolled DM. Per Dr. De Jesus... no further testing needed. We will evaluate on the day of surgery. Please make sure patient take at least half of basal insulin the day prior to surgery Attempted to call patient to advised to take insulin day prior to surgery but no answer and unable to leave voicemail. Please contact to assure of instructions above Thank you Jenny Aguilar APRN.Anitra Granado RN 06/19/2023 9:07 AM Addendum I spoke with patient and instructions given to take at least 12 units of her Lantus the night prior to her scheduled surgery on 06/22/[address] Ballard. Patient stated she is not feeling well and has the following symptoms: whole body aches, chills, nausea, and fatigue. She is on her way to [facility] ED. Because patient is not feeling well, she was advised to call Dr. Ballard's office to give update on her current condition. Patient verbalized understanding of above instructions and follow-up. Thank you, Anitra Sanchez RN June 19, 2023 8:58 AM Allergies As of Date: 06/07/2023 Noted Allergy Reaction LATEX 02/05/2020 2 - Rash Comments: Added based on information entered during case entry, please review and add reactions, type, and severity as needed Date Reviewed: 06/06/2023 Reviewed by: Susan Cobos LPN - Fully Assessed Reason for Visit: PreOp Call [4524] Cmt: Elevated A1c Primary Visit Diagnosis:Uncontrolled type 2 diabetes mellitus with hyperglycemia (HCC) [E11.65] Order(s):CONSULT TO ENDOCRINOLOGY [2872] Order #: [id number]: 1 FUTURE Prescriptions as of 06/19/2023 - FEROSUL 325 mg (65 mg iron) tablet Take 1 tablet by mouth three times daily with meals. - VITAMIN B-12 1,000 mcg tab Take 1,000 mcg by mouth once daily. - insulin aspart (NOVOLOG FLEXPEN U-100 INSULIN SUBCUTANEOUS) Inject subcutaneously. Sliding scale - insulin glargine (LANTUS) 100 unit/mL injection Inject 25 Units subcutaneously daily at bedtime. - albuterol HFA (PROVENTIL HFA, VENTOLIN HFA) 90 mcg/actuation inhaler Inhale 2 Puffs as instructed every 6 hours as (more content not included)... Normal [facility] CBC W Auto Differential pane l (Bld)on 06-06-2023 Basophils (Bld) [#/Vol] 0.04 10*3/uL Normal <0.11 [facility] Comment on above: Order Comment: Speci men Type: BLOOD SPECIMEN Ordering Facility: [facility] Address: [address] [place] [address] Performed By: #### 5 7021-8 #### [facility] CLIA [id number] [address] [place] [address] [place] Basophils/100 WBC (Bld) 0.8 % Normal [facility] Comment on above: Order Comment: Speci men Type: BLOOD SPECIMEN Ordering Facility: [facility] Address: [address] [place] [address] Performed By: #### 5 7021-8 #### [facility] CLIA [id number] [address] [place] [address] [place] Differential cell count method Nom (Bld) Auto Normal [facility] Comment on above: Order Comment: Speci men Type: BLOOD SPECIMEN Ordering Facility: [facility] Address: [address] [place] [address] Performed By: #### 5 7021-8 #### [facility] CLIA [id number] [address] [place] [address] [place] Eosinophils (Bld) [#/Vol] 0.15 10*3/uL Normal <0.46 [facility] Comment on above: Order Comment: Speci men Type: BLOOD SPECIMEN Ordering Facility: [facility] Address: [address] [place] [address] Performed By: #### 5 7021-8 #### [facility] CLIA [id number] [address] [place] [address] [place] Eosinophils/100 WBC (Bld) 3.1 % Normal [facility] Comment on above: Order Comment: Speci men Type: BLOOD SPECIMEN Ordering Facility: [facility] Address: [address] [place] [address] Performed By: #### 5 7021-8 #### [facility] CLIA [id number] [address] [place] [address] [place] Erythrocyte distribution width (RBC) [Ratio] 14.7 % Normal 11.5-15.0 [facility] Comment on above: Order Comment: Speci men Type: BLOOD SPECIMEN Ordering Facility: [facility] Address: [address] [place] [address] Performed By: #### 5 7021-8 #### [facility] CLIA [id number] [address] [place] [address] [place] Hematocrit (Bld) [Volume fraction] 37.2 % Normal 36.0-46.0 [facility] Comment on above: Order Comment: Speci men Type: BLOOD SPECIMEN Ordering Facility: [facility] Address: [address] [place] [address] Performed By: #### 5 7021-8 #### [facility] CLIA [id number] [address] [place] [address] [place] Hemoglobin (Bld) [Mass/Vol] 11.9 g/dL Normal 11.5-15.5 [facility] Comment on above: Order Comment: Speci men Type: BLOOD SPECIMEN Ordering Facility: [facility] Address: [address] [place] [address] Performed By: #### 5 7021-8 #### [facility] CLIA [id number] [address] [place] [address] [place] Immature granulocytes (Bld) [#/Vol] 10*3/uL Normal <0.10 [facility] Comment on above: Order Comment: Speci men Type: BLOOD SPECIMEN Ordering Facility: [facility] Address: [address] [place] [address] Performed By: #### 5 7021-8 #### [facility] CLIA [id number] [address] [place] [address] [place] Immature granulocytes/100 WBC (Bld) 0.4 % Normal [facility] Comment on above: Order Comment: Speci men Type: BLOOD SPECIMEN Ordering Facility: [facility] Address: [address] [place] [address] Performed By: #### 5 7021-8 #### [facility] CLIA [id number] [address] [place] [address] [place] Lymphocytes (Bld) [#/Vol] 2.18 10*3/uL Normal 1.00-4.00 [facility] Comment on above: Order Comment: Speci men Type: BLOOD SPECIMEN Ordering Facility: [facility] Address: [address] [place] [address] Performed By: #### 5 7021-8 #### [facility] CLIA [id number] [address] [place] [address] [place] Lymphocytes/100 WBC (Bld) 44.7 % Normal [facility] Comment on above: Order Comment: Speci men Type: BLOOD SPECIMEN Ordering Facility: [facility] Address: [address] [place] [address] Performed By: #### 5 7021-8 #### [facility] CLIA [id number] [address] [place] [address] [place] MCH (RBC) [Entitic mass] 25.4 pg Low 26.0-34.0 [facility] Comment on above: Order Comment: Speci men Type: BLOOD SPECIMEN Ordering Facility: [facility] Address: [address] [place] [address] Performed By: #### 5 7021-8 #### [facility] CLIA [id number] [address] [place] [address] [place] MCHC (RBC) [Mass/Vol] 32.0 g/dL Normal 30.5-36.0 [facility] Comment on above: Order Comment: Speci men Type: BLOOD SPECIMEN Ordering Facility: [facility] Address: [address] [place] [address] Performed By: #### 5 7021-8 #### [facility] CLIA [id number] [address] [place] [address] [place] MCV (RBC) [Entitic vol] 79.5 fL Low 80.0-100.0 [facility] Comment on above: Order Comment: Speci men Type: BLOOD SPECIMEN Ordering Facility: [facility] Address: [address] [place] [address] Performed By: #### 5 7021-8 #### [facility] CLIA [id number] [address] [place] [address] [place] Monocytes (Bld) [#/Vol] 0.42 10*3/uL Normal <0.87 [facility] Comment on above: Order Comment: Speci men Type: BLOOD SPECIMEN Ordering Facility: [facility] Address: [address] [place], [place] [address] Performed By: #### 5 7021-8 #### [facility] CLIA [id number] [address] [place] [address] [place] Monocytes/100 WBC (Bld) 8.6 % Normal [facility] Comment on above: Order Comment: Speci men Type: BLOOD SPECIMEN Ordering Facility: [facility] Address: [address] [place] [address] Performed By: #### 5 7021-8 #### [facility] CLIA [id number] [address] [place] [address] [place] Neutrophils (Bld) [#/Vol] 2.07 10*3/uL Normal 1.45-7.50 [facility] Comment on above: Order Comment: Speci men Type: BLOOD SPECIMEN Ordering Facility: [facility] Address: [address] [place] [address] Performed By: #### 5 7021-8 #### [facility] CLIA [id number] [address] [place] [address] [place] Neutrophils/100 WBC (Bld) 42.4 % Normal [facility] Comment on above: Order Comment: Speci men Type: BLOOD SPECIMEN Ordering Facility: [facility] Address: [address] [place] [address] Performed By: #### 5 7021-8 #### [facility] CLIA [id number] [address] [place] [address] [place] Nucleated RBC (Bld) [#/Vol] 10*3/uL Normal <0.01 [facility] Comment on above: Order Comment: Speci men Type: BLOOD SPECIMEN Ordering Facility: [facility] Address: [address] [place] [address] Performed By: #### 5 7021-8 #### [facility] CLIA [id number] [address] [place] [address] [place] Nucleated RBC/100 WBC (Bld) [Ratio] 0.0 /100 WBC Normal [facility] Comment on above: Order Comment: Speci men Type: BLOOD SPECIMEN Ordering Facility: [facility] Address: [address] [place] [address] Performed By: #### 5 7021-8 #### [facility] CLIA [id number] [address] [place] [address] [place] Platelet mean volume (Bld) [Entitic vol] 11.5 fL Normal 9.0-12.7 [facility] Comment on above: Order Comment: Speci men Type: BLOOD SPECIMEN Ordering Facility: [facility] Address: [address] [place] [address] Performed By: #### 5 7021-8 #### [facility] CLIA [id number] [address] [place] [address] [place] Platelets (Bld) [#/Vol] 230 10*3/uL Normal 150-400 [facility] Comment on above: Order Comment: Speci men Type: BLOOD SPECIMEN Ordering Facility: [facility] Address: [address] [place] [address] Performed By: #### 5 7021-8 #### [facility] CLIA [id number] [address] [place] [address] [place] RBC (Bld) [#/Vol] 4.68 10*6/uL Normal 3.90-5.20 [facility] Comment on above: Order Comment: Speci men Type: BLOOD SPECIMEN Ordering Facility: [facility] Address: [address] [place] [address] Performed By: #### 5 7021-8 #### [facility] [facility] CLIA [id number] [address] [place] [address] [place] WBC (Bld) [#/Vol] 4.88 10*3/uL Normal 3.70-11.00 [facility] Comment on above: Order Comment: Speci men Type: BLOOD SPECIMEN Ordering Facility: [facility] Address: [address] [place] [address] Performed By: #### 5 7021-8 #### [facility] CLIA [id number] [address] [place] [address] [place] Comprehensive metabolic 2000 panelon 06-06-2023 Albumin [Mass/Vol] 3.8 g/dL Low 3.9-4.9 [facility] Comment on above: Order Comment: Speci men Type: BLOOD SPECIMEN Ordering Facility: [facility] Address: [address] [place] [address] Performed By: #### 2 4323-8 #### [facility] CLIA [id number] [address] [place] [address] [place] ALP [Catalytic activity/Vol] 115 U/L Normal 34-123 [facility] Comment on above: Order Comment: Speci men Type: BLOOD SPECIMEN Ordering Facility: [facility] Address: [address] [place] [address] Performed By: #### 2 4323-8 #### [facility] CLIA [id number] [address] [place] [address] [place] ALT [Catalytic activity/Vol] 11 U/L Normal 7-38 [facility] Comment on above: Order Comment: Speci men Type: BLOOD SPECIMEN Ordering Facility: [facility] Address: [address] [place] [address] Performed By: #### 2 4323-8 #### [facility] CLIA [id number] [address] [place] [address] [place] Anion gap [Moles/Vol] 11 mmol/L Normal 9-18 [facility] Comment on above: Order Comment: Speci men Type: BLOOD SPECIMEN Ordering Facility: [facility] Address: [address] [place] [address] Performed By: #### 2 4323-8 #### [facility] CLIA [id number] [address] [place] [address] [place] AST [Catalytic activity/Vol] 12 U/L Low 13-35 [facility] Comment on above: Order Comment: Speci men Type: BLOOD SPECIMEN Ordering Facility: [facility] Address: [address] [place] [address] Performed By: #### 2 4323-8 #### [facility] CLIA [id number] [address] [place] [address] [place] Bilirubin [Mass/Vol] 0.3 mg/dL Normal 0.2-1.3 [facility] Comment on above: Order Comment: Speci men Type: BLOOD SPECIMEN Ordering Facility: [facility] Address: [address] [place] [address] Performed By: #### 2 4323-8 #### [facility] CLIA [id number] [address] [place] [address] [place] Calcium [Mass/Vol] 8.9 mg/dL Normal 8.5-10.2 [facility] Comment on above: Order Comment: Speci men Type: BLOOD SPECIMEN Ordering Facility: [facility] Address: [address] [place] [address] Performed By: #### 2 4323-8 #### [facility] CLIA [id number] [address] [place] [address] [place] Chloride [Moles/Vol] 95 mmol/L Low 97-105 [facility] Comment on above: Order Comment: Speci men Type: BLOOD SPECIMEN Ordering Facility: [facility] Address: [address] [place] [address] Performed By: #### 2 4323-8 #### [facility] CLIA [id number] [address] [place] [address] [place] CO2 [Moles/Vol] 24 mmol/L Normal 22-30 [facility] Comment on above: Order Comment: Speci men Type: BLOOD SPECIMEN Ordering Facility: [facility] Address: [address] [place] [address] Performed By: #### 2 4323-8 #### [facility] CLIA [id number] [address] [place] [address] [place] Creatinine [Mass/Vol] 1.81 mg/dL High 0.58-0.96 [facility] Comment on above: Order Comment: Speci men Type: BLOOD SPECIMEN Ordering Facility: [facility] Address: [address] [place] [address] Performed By: #### 2 4323-8 #### [facility] CLIA [id number] [address] [place] [address] [place] Creatinine and Glomerular filtration rate.predicted panel (S/P/Bld) 31 mL/min/1.73m??? Low >=60 [facility] Comment on above: Order Comment: Speci men Type: BLOOD SPECIMEN Ordering Facility: [facility] Address: [address] [place] [address] Result Comment: Donna mated Glomerular Filtration Rate (eGFR) is calculated using the 2020 CKD-EPI creatinine equation. This equation utilizes serum creatinine, sex, and age as parameters. The creatinine assay has traceable calibration to isotope dilution-mass spectrometry. Refer to KDIGO guidelines for clinical interpretation. In patients with unstable renal function, e.g. those with acute kidney injury, the eGFR may not accurately reflect actual GFR. Performed By: #### 2 4323-8 #### [facility] CLIA [id number] [address] [place] [address] [place] Glucose [Mass/Vol] 510 mg/dL High 74-99 [facility] Comment on above: Order Comment: Speci men Type: BLOOD SPECIMEN Ordering Facility: [facility] Address: [address] [place] [address] Result Comment: The [place] Diabetes Association (ADA) provides guidance for cutoff values for fasting glucose and random glucose. The ADA defines fasting as no caloric intake for at least 8 hours. Fasting plasma glucose results between 100 to 125 mg/dL indicate increased risk for diabetes (prediabetes). Fasting plasma glucose results greater than or equal to 126 mg/dL meet the criteria for diagnosis of diabetes. In the absence of unequivocal hyperglycemia, results should be confirmed by repeat testing. In a patient with classic symptoms of hyperglycemia or hyperglycemic crisis, random plasma glucose results greater than or equal to 200 mg/dL meet the criteria for diagnosis of diabetes. Reference: Standards of Medical Care in Diabetes 2016, [place] Diabetes Association. Diabetes Care. 2016.39(Suppl 1). Performed By: #### 2 4323-8 #### [facility] CLIA [id number] [address] [place] [address] [place] Potassium [Moles/Vol] 5.9 mmol/L High 3.7-5.1 [facility] Comment on above: Order Comment: Speci men Type: BLOOD SPECIMEN Ordering Facility: [facility] Address: [address] [place] [address] Performed By: #### 2 4323-8 #### [facility] CLIA [id number] [address] [place] [address] [place] Protein [Mass/Vol] 8.2 g/dL High 6.3-8.0 [facility] Comment on above: Order Comment: Speci men Type: BLOOD SPECIMEN Ordering Facility: [facility] Address: [address] [place] [address] Performed By: #### 2 4323-8 #### [facility] CLIA [id number] [address] [place] [address] [place] Sodium [Moles/Vol] 130 mmol/L Low 136-144 [facility] Comment on above: Order Comment: Speci men Type: BLOOD SPECIMEN Ordering Facility: [facility] Address: [address] [place] [address] Performed By: #### 2 4323-8 #### [facility] CLIA [id number] [address] [place] [address] [place] Urea nitrogen [Mass/Vol] 36 mg/dL High 7-21 [facility] Comment on above: Order Comment: Speci men Type: BLOOD SPECIMEN Ordering Facility: [facility] Address: [address] [place] [address] Performed By: #### 2 4323-8 #### [facility] CLIA [id number] [address] [facility] [place] [address] [place] ECG COMPLETEon 06-06-2023 ECG COMPLETE Ventricular Rate : 7 6 BPM Atrial Rate : 76 BPM P-R Interval : 162 ms QRS Duration : 74 ms Q-T Interval : 402 ms QTC Calculation(Bazett) : 452 ms Calculated P [place] : 48 degrees Calculated R [place] : 43 degrees Calculated T [place] : 53 degrees NORMAL SINUS RHYTHM POSSIBLE LEFT ATRIAL ENLARGEMENT BORDERLINE ECG Confirmed by AMANDA DAVID MD ([id number]) on 06/10/2023 4:44:16 PM NAME : AISLINN WHEELER PID : [id number] : 1960 Gender : Female Race : ORD : [id number] Procedure Date : Jun 06 2023 12:04:48 Edit Date : Jun 10 2023 16:44:21 Diagnosis: NORMAL SINUS RHYTHM POSSIBLE LEFT ATRIAL ENLARGEMENT BORDERLINE ECG Confirmed by AMANDA DAVID MD ([id number]) on 06/10/2023 4:44:16 PM Test Reason : Z01.818 Preop examination Location : 145 : [facility] Overread By : AMANDA DAVID MD Edited By : AMANDA DAVID MD Referred By : TAURUS BALLARD Acquired by : am, Normal [facility] HISTORY PHYSICALon HISTORY PHYSICAL HNO ID: [id number] Author: Jenny Aguilar APRN.COURT DEPUTY Service: ? Author Type: Nurse Practitioner Type: HANDP Filed: 06/15/2023 1:27 PM Note Text: HISTORY AND PHYSICAL EXAMINATION SERVICE DATE: 06/06/2023 SERVICE TIME: 12:34 PM PRIMARY CARE PHYSICIAN: Latosha Olmstead REASON FOR VISIT: Aislinn Wheeler is a 63 year old female who is scheduled for ROBOTIC LAPAROSCOPIC NEPHRECTOMY PARTIAL LEFT at the request of Dr. Taurus Ballard for consultation. My final recommendation will be communicated back to the requesting physician by way of shared medical record or letter. The patient has the following: ACTIVE PROBLEM LIST Ureterolithiasis Acute Bilateral Obstructive Uropathy Anatoliy (Acute Kidney Injury) (Hcc) Generalized Weakness Falls Frequently Severe Protein-Calorie Malnutrition (Hcc) Bladder Outlet Obstruction Primary Hypertension Mild Intermittent Asthma Without Complication History of Tia (Transient Ischemic Attack) Mvp (Mitral Valve Prolapse) Mildred (Iron Deficiency Anemia) Chronic Pain Due to Trauma Neurogenic Bladder Stage 3a Chronic Kidney Disease (Hcc) Type 2 Diabetes Mellitus With Hyperglycemia, With Long-Term Current Use of Insulin (Hcc) Subjective CHIEF COMPLAINT: Flank pain HPI: 63 year old female with flank pain. Pt reports left flank pain when bending or moving. CT 05/10/2023 which showed left lower pole cystic lesion measuring 9.4 x 6.8 cm rotating the kidney. Has neurogenic bladder ( botox injections) with recurrent UTIs and CKD. Above surgery recommended PAST MEDICAL HISTORY Diagnosis Date Anemia Asthma CKD (chronic kidney disease) Diabetes (HCC) PAST SURGICAL HISTORY Procedure Laterality Date ANKLE SURGERY HX Left HYSTERECTOMY HX NECK SURGERY HX x2-- cervical disc PAST SURGICAL HISTORY OF left large toe amputation PAST SURGICAL HISTORY OF Right right arm surgery REMOVAL GALLBLADDER SHOULDER SURGERY HX Left FAMILY HISTORY Problem Relation Age of Onset Difficulty with anesthesia No Family History SOCIAL HISTORY: Social History Tobacco Use Smoking status: Never Smokeless tobacco: Never Vaping Use Vaping Use: Never used Substance Use Topics Alcohol use: Yes Comment: rarely--holiday or special occ Drug use: Never Prior to Admission medications as of 06/06/23 1256 Medication Sig Last Dose Taking FEROSUL 325 mg (65 mg iron) tablet Take 1 tablet by mouth three times daily with meals. Yes VITAMIN B-12 1,000 mcg tab Take 1,000 mcg by mouth once daily. Yes insulin aspart (NOVOLOG FLEXPEN U-100 INSULIN SUBCUTANEOUS) Inject subcutaneously. Sliding scale Yes insulin glargine (LANTUS) 100 unit/mL injection Inject 25 Units subcutaneously daily at bedtime. Yes albuterol HFA (PROVENTIL HFA, VENTOLIN HFA) 90 mcg/actuation inhaler Inhale 2 Puffs as instructed every 6 hours as needed for wheezing/shortness of breath. Yes pregabalin (LYRICA) 150 mg capsule Take 150 mg by mouth three times daily. Yes HYDROcodone-Acetaminoph en (NORCO) 7.5-325 mg per tablet Take 1 tablet by mouth three times daily as needed. Yes No medication comments found. ALLERGIES Allergen Reactions Latex Rash Added based on information entered during case entry, please review and add reactions, type, and severity as needed REVIEW OF SYSTEMS: PAIN ASSESSMENT: Pain Pain Level: 2 (worse with activity.) Pain Location: Flank-Left Description: Aching, Sharp Duration Units: Months Frequency: Continuous Intervention/Comfort measure: Positioning Comments: rest General: No weight loss, malaise or fevers. Neuro: Negative for Seizures Hx of TIA many years , no residual effects Respiratory: Negative for Dyspnea, URI < 2 weeks, Wheezing + Asthma- PRN inhaler, rare use Cardiovascular: Negative for CAD, Chest Pain, DVT/PE Hx of HTN- states was previously on medication but stopped by PCP due to side effects + MVP GI: No history of GI symptoms or problems. No history of esophageal varices, recent ascites, or ETOH greater than 2 drinks per day. 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 : N/A, No LMP recorded. Patient has had a hysterectomy. Endocrine: Diabetes Mellitus on insulin states BG Hematology: Iron deficiency anemia Oncology: No history of CA metastasis, chemo within 30 days, or radiotherapy within 90 days. Has not lost 10% of body wt in 6 months. No history of oncological symptoms or problems. Psych: No history of psychiatric symptoms or problems. Musculoskeletal: + chronic pain right arm - follows with pain management at [facility] Skin: Negative for lesions, rash and itching. Objective PHYSICAL EXAM: VITALS: BP 174/80 Pulse 76 Temp (Src) 97 (Temporal) Resp 16 Ht 5' 0 (1.52m) Wt 131 lb (59.4kg) SpO2 99% BMI 25.58 kg/(m2). General: Alert and oriented, No acute distress Skin: Normal color, no rash, no lesions. HEENT: EOM, pupils equal, (more content not included)... Normal [facility] HbA1c (Bld)on 06-06-2023 Average glucose Estimated from glycated hemoglobin (Bld) [Mass/Vol] 335 mg/dL Normal [facility] Comment on above: Order Comment: Speci men Type: BLOOD SPECIMEN Ordering Facility: [facility] Address: [address] [place] [address] Result Comment: eAG: (Estimated average glucose) is a calculated value from HgbA1c and is renewals representative of the average blood glucose level in the last 2-3 month period. Performed By: #### 5 5454-3 #### [facility] CLIA [id number] [address] [place] [address] [place] HbA1c (Bld) [Mass fraction] 13.3 % High 4.3-5.6 [facility] Comment on above: Order Comment: [place] Type: BLOOD SPECIMEN Ordering Facility: [facility] Address: [address] [place] [address] Result Comment: [place] Diabetes Association guidelines indicate that patients with HgbA1c in the range 5.7-6.4% are at increased risk for development of diabetes, and intervention by lifestyle modification may be beneficial. HgbA1c greater or equal to 6.5% is considered diagnostic of diabetes. Performed By: #### 5 5454-3 #### [facility] CLIA [id number] [facility] [place] [address] [place] PT panel Coag (PPP)on 2022 INR Coag (PPP) [Relative time] 1.0 {INR} Normal 0.9-1.3 [facility] Comment on above: Order Comment: [place] Type: BLOOD SPECIMEN Ordering Facility: [facility] Address: [address] [place] [address] Result Comment: Laxmi min K Antagonist (VKA) Therapeutic Range: INR 2 to 3 (Target INR of 2.5) Note: For patients treated with VKA drugs, such as warfarin, the [place] [employer] 2012 Guideline recommends a therapeutic INR range of 2 to 3 (target INR of 2.5). This recommendation includes high-risk patients with antiphospholipid syndrome with previous arterial or venous thromboembolism, current-generation mechanical or bioprosthetic aortic heart valve replacement. Note: Patients with mechanical aortic valve replacement and additional risk factors for thromboembolic events (atrial fibrillation, previous thromboembolism, LV dysfunction, hypercoagulable conditions) or an older generation mechanical AVR (i.e., ball in-Cage) or any mechanical MVR should have a INR therapeutic range of 2.5 to 3.5 (target INR of 3). Ruma GH, et al. Chest 2012, 141:7S-47S Eligio RA et al. JACC 2017, 70: 252-289 Performed By: #### 1 4979-9, 11182-3 #### [facility] CLIA [id number] [address] [place] [address] [place] PT Coag (PPP) [Time] 10.1 s Normal 9.7-13.0 [facility] Comment on above: Order Comment: Speci men Type: BLOOD SPECIMEN Ordering Facility: [facility] Address: [address] [place] [address] Performed By: #### 1 4979-9, 45986-4 #### [facility] CLIA [id number] [facility] [place] [address] [place] TYPE AND SCREEN,30 DAYon ABO B Normal [facility] Comment on above: Order Comment: Speci men Type: BLOOD SPECIMEN Ordering Facility: [facility] Address: [address] [place] [address] Performed By: #### T SCR30 #### [facility] CLIA [id number] [facility] [place] [address] [place] HISTORICAL AB SCR STATUS Negative Normal [facility] Comment on above: Order Comment: Speci men Type: BLOOD SPECIMEN Ordering Facility: [facility] Address: [address] [place] [address] Performed By: #### T SCR30 #### [facility] CLIA [id number] [address] [place] [address] [place] Rh Nom (Bld) Positive Normal [facility] Comment on above: Order Comment: Speci men Type: BLOOD SPECIMEN Ordering Facility: [facility] Address: [address] [place] [address] Performed By: #### T SCR30 #### [facility] CLIA [id number] [address] [place] [address] [place] aPTT PPPon 06-06-2023 aPTT Coag (PPP) [Time] 28.7 s Normal 23.0-32.4 [facility] Comment on above: Order Comment: Speci men Type: BLOOD SPECIMEN Ordering Facility: [facility] Address: [address] [place] [address] Result Comment: Yeny en Plasma Aliquot Performed By: #### 1 4979-9, 19370-1 #### [facility] CLIA [id number] [address] [facility] [id number] [place] [address] [place] Consent for Procedure/Surger yon 05-22-2023 Consent for Procedure/Surgery [id number] 0CD:127 Normal [facility] Consent for Treatmenton Consent for Treatment [id number] D:127 Normal [facility] Inpatient Patient Summaryon 05-22-2023 Inpatient Patient Summary [place] [id number] Clinical Summary Person Information Name: AISLINN WHEELER Age: 63 Years : 1960 Sex: Female PCP: LATOSHA OLMSTEAD CNP Marital Status: Race: White Ethnicity: Non- or Language: Turkish Visit Id: Visit Reason: MIXED URINARY INCONTINENCE Speciality: Acuity: Enc Type: Outpatient Med Service: Surgery Arrival: 05/22/2023 09:41:57 Discharge: Dispo Type: Address: [address] [place] [phone] Provider Notes: Diagnosis: Feeling of incomplete bladder emptying; Mixed incontinence; Urinary leakage Problems Active Incomplete bladder emptying Glucosuria Renal cyst Feeling of incomplete bladder emptying Mixed incontinence Urinary leakage Urinary tract infection (07/25/2022) Ureteric stone (01/17/2021) Type 2 diabetes mellitus (11/03/2021) Personal history of transient ischemic attack (07/25/2022) Iron deficiency anemia, unspecified (11/15/2021) Heart failure (08/09/2022) Chronic kidney disease stage 3 (11/15/2021) Hyperkalemia (07/25/2022) Essential hypertension (08/17/2022) Smoking Status: Functional Status: Sensory Deficits: History of Falls: Mobility Assistance Prior to Admission: ADLs: Current Level of Assistance for Self-Care/Mobility: Cognitive Status: Allergies Latex (Eruption) Laboratory or Other Results This Visit (last charted value for your 05/22/2023 visit) No Laboratory or Other Results This Visit Measurements: Height: 153 cm Weight: Blood Pressure: Not Valued / Not Valued BMI: Procedures No Procedures Documented Immunizations No Immunizations Documented This Visit Final Med List: acetaminophen-hydrocodo ne (acetaminophen-hydrocod one 325 mg-7.5 mg oral tablet) amlodipine (amLODIPine 5 mg Tab) estradiol topical (Estrace 0.1 mg/g Cream) apply pea size amount to urethra/inner vagina 3x/week x 1 month, then 2x/week for maintainence. Refills: 3. folic acid (folic acid 1 mg Tab) insulin aspart (Insulin Aspart FlexPen) Subcutaneous before meals. potassium chloride (potassium chloride 10 mEq Cap-ER) pregabalin (pregabalin 150 mg Cap) Care Team Members: Attending Physician: Lisa Porras MD Consulting Physician: Referring Physician: Lisa Porras MD Follow up: With: Address: When: Lisa Porras [address] [place] [address] [phone] Business (1) [address] [place] [address] [place], [place] [address], [place] [address] [phone] Business (1) Comments: Office to schedule follow up in 1 month with PVR Patient Education Information: EU - Cystoscopy with Botox Injection Discharge Instructions (CUSTOM) Normal [facility] IntraOperative Documentson 1 IntraOperative Documents [id number] 0CD:127 Normal [facility] Main OR Intraoperative Recor barbara 05-22-2023 Main OR Intraoperative Record IntraOp Document Type FTURO Summary Primary Physician: Lisa Porras MD Finalized Date/Time: 05/22/23 11:29:32 Pt. Name: AISLINN WHEELER/Sex: 1960 Female Med Rec #: [id number] Physician: Lisa Porras MD Financial #: [id number] Pt. Type: O Room/Bed: / Admit/Disch: 05/22/23 09:41:57 - Institution: Case Times FTURO Entry 1 Patient Times In Room 05/22/23 11:15:00 Out Room 05/22/23 11:30:00 Procedure Times Start 05/22/23 11:22:00 Stop 05/22/23 11:26:00 Anesthesia Times Last Modified By: Katya LE, Marilee Feldman 05/22/23 11:26:29 General Comments: BOTOX 100 UNITS LOT#: [id number] , EXP DATE: 09/2025 -Jessica BLANCO RN Case Attendance FTURO Entry 1 Entry 2 Entry 3 Case Attendee Vern TAVERAS, Lisa Blanco RN, Marilee Solano CST, Diana Feldman Role Performed Surgeon - Primary Director Operating - Primary Scrub - Primary Time In 05/22/23 11:15:00 05/22/23 11:15:00 05/22/23 11:15:00 Time Out 05/22/23 11:30:00 05/22/23 11:30:00 05/22/23 11:30:00 Procedure CYSTOSCOPY LOCAL BOTOX CYSTOSCOPY LOCAL BOTOX CYSTOSCOPY LOCAL BOTOX INJECTION(.) INJECTION(.) INJECTION(.) Comments Last Modified By: Katya LE, Marilee Blanco RN, Marilee Blanco RN, Marilee Feldman 05/22/23 Apryl P 05/22/23 Apryl P 05/22/23 11:26:33 11:26:33 11:26:33 Surgical Procedures FTURO Entry 1 Procedure Description Procedure CYSTOSCOPY LOCAL BOTOX Modifiers . INJECTION Surgeon Description CYSTOSCOPY WITH BOTOX 100 UNITS Primary Procedure Yes Primary Surgeon Lisa Porras MD Start 05/22/23 11:22:00 Stop 05/22/23 11:26:00 Anesthesia Type Local Surgical Service Urology Wound Class 2 - Clean-Contaminated Last Modified By: Katya LE, Marilee Feldman 05/22/23 11:26:34 General Case Data FTURO Pre-Care Text: Classifies surgical wound, implements aseptic technique, initiates traffic control Entry 1 Case Information OR URO 1 FT Case Level None Wound Class 2 - Clean-Contaminated Specialty Urology Preop Diagnosis MIXED URINARY Postop Same As Preop Yes INCONTINENCE Postop Diagnosis MIXED URINARY Outcomes Met? Yes INCONTINENCE Last Modified By: Marilee Blanco RN 05/22/23 10:46:22 Post-Care Text: The patient is free from signs and symptoms of infection EU IntraOp - FTURO Pre-Care Text: Implements protective measures prior to operative or invasive procedure, confirms identity before the operative or invasive procedure, verifies operative procedure, surgical site, and laterality Entry 1 EU Perioperative Protocols Procedure(s) CYSTOSCOPY LOCAL BOTOX Patient Identity Birthday, ID Band INJECTION(.) Verified (select at Check, Patient least 2): Participation Consents / H and P HandP, Surgery/Procedure Operative Site N/A Verified Consent Marking Verified Surgical Site Yes Laterality Verified n/a Verified Procedure Verified Yes Correct Patient Yes Position Verified Availability Equipment, Medication Time Out Lisa Porras MD, Verified (If Participants Marilee Blanco RN Applicable) Xiomara Cagle CST, Diana Shoemaker Time Out Complete 05/22/23 11:22:00 Allergies Reviewed? Yes Allergies Reviewed Self/Patient With Body Position Semi Fowlers Prep Area PERINEUM Prep Agents Betadine Solution Skin. Condition Unable to Visualize Description PARTIALLY CLOTHED Additional None Specimens Collected Vitals - EU Blood Pressure Pulse Respirations SPO2 IandO - EU Outcomes Met? Yes Last Modified By: Marilee Blanco RN 05/22/23 11:22:28 Post-Care Text: The patient is free from signs and symptoms of injury caused by extraneous objects Sign Out FTURO Entry 1 Before Patient Leaves OR Nurse verbally Yes Nurse verbally Yes confirms with the confirms with the team the name of team that the procedure(s) instrument, sponge, recorded and needle counts are correct (or N/A) Nurse verbally n/a Nurse verbally Yes confirms with the confirms with the team how the team whether there specimen is labeled are any equipment (including patient problems to be name), if applicable addressed Sign Out Complete 05/22/23 11:26:00 Last Modified By: Marilee Blanco RN 05/22/23 11:26:31 Case Comments Finalized By: Marilee Blanco RN Document Signatures Signed By: Marilee Blanco RN 05/22/23 11:29 Normal [facility] Main OR Preoperative Recordo n 05-22-2023 Main OR Preoperative Record Holding Area Document Type FTURO Summary Primary Physician: Lisa Porras MD Finalized Date/Time: 05/22/23 10:32:24 Pt. Name: AISLINN WHEELER /Sex: 1960 Female Med Rec #: [id number] Physician: Lisa Porras MD Financial #: [id number] Pt. Type: O Room/Bed: / Admit/Disch: 05/22/23 09:41:57 - Institution: Case Times Holding FTURO Pre-Care Text: Verifies consent for planned procedure, identifies individual values and wishes concerning care, includes family members in perioperative teaching Secures patient's records' belongings, and valuables, maintains patient's dignity and privacy, and maintains patient confidentiality Entry 1 In Holding 05/22/23 10:22:00 Outcomes Met? Yes Last Modified By: Diana Mcpherson RN 05/22/23 10:22:41 Post-Care Text: The patient participates in decisions affecting his or her perioperative plan of care The patient's right to privacy is maintained Surgery Checklist FTURO Entry 1 Patient Birthday, ID Band Procedure History and Physical, Identification: Check, Patient Verification: Surgical Consent, With Participation Patient NPO after Midnight: n/a Personal Items: Cataract Lens Implant, Jewelry Personal Items BILATERAL CATARACT LENS Limitations: UP AD MEGAN Comment: IMPLANTS; RINGS X 3 Complaints of Pain: No Skin Integrity Dry, Warm, Unable to Visualize Vitals - EU Blood Pressure 134/70 Pulse 68 bpm Respirations 20 br/min SPO2 92 % Additional Other (See Comment) Specimens Comment URINE DIPSTICK. Specimens Collected RN Reviewed Yes Last Modified By: Diana Mcpherson RN 05/22/23 10:32:20 Finalized By: Diana Mcpherson RN Document Signatures Signed By: Diana Mcpherson RN 05/22/23 10:32 Normal [facility] Operative Reporton Operative Report Patient: BARBARA WHEELER Age: 63 years Sex: Female : 1960 Associated Diagnoses: None Author: Lisa Porras MD Procedure Operative Information Details: Date/ Time: 05/22/2023 11:29:00. Pre-Op Dx: Feeling of incomplete bladder emptying (FGC22-TL R39.14, Discharge, Medical), Mixed incontinence (IPB06-HS N39.46, Discharge, Medical), Urinary leakage (FVC65-JB R32, Discharge, Medical). Post-Op Dx: Same. Anesthesia Type: Local. Procedure: Local Cystoscopy with botox injection, 100 units. Complications: None. Risks/Benefits/Informed Consent: Surgical risks, benefits, details of the procedure have been explained to the patient, Full informed consent has been obtained. Intraoperative Information Prepped: Patient is brought back to the endoscopy suite, Female Prep (Patient is placed in modified dorso/lithotomy position, 5 cc 2% Xylocaine Jelly is placed per Urethra, Straight cath inserted to obtain urine specimen, 60 cc 2% Xylocaine liquid inserted into bladder, 5 additional cc 2% Xylocaine Jelly is placed per Urethra, Patient in sitting position for 20 min dwell), Urine Specimen Results Negative for infection, Patient prepped in the usual fashion with Betadine solution, After waiting several minutes the Cystoscope is introduced. Procedure: The trigone was identified and evaluated. The bladder was instilled with enough saline to achieve adequate visualization for the injections. The needle was inserted approximately 2 mm into the detrusor. A total of 10 injections with 1 ml volume was delivered at each site, total 100 units, evenly spaced out throughout the bladder taking care to avoid the ureteral orficies. There was excellent hemostasis at the end of the procedure. The cystoscope was removed and the patient tolerated the procedure well without immediate complications. . The Urethra is: Normal. The Bladder is: Normal, Trabeculated Severe (3), No bladder tumors, lesions, stones or foreign bodies.. The ureteral orifices: Show efflux of clear urine. Postoperative Information Discharge: Patient is discharged home with antibiotic coverage, Follow up arranged. Follow up in 1 month with [facility]. 14Fr st caths for pt in case of retention (has needed to CIC in the remote past). Normal [facility] Comment on above: Result Comment: Elec tronically Signed By: Lisa Porras MD\.br\Date and Time Signed: 05/22/23 11:30 EDT Outpatient Surgery Discharge Instructionon 05-22-2023 Outpatient Surgery Discharge Instruction [place] [id number] Patient Discharge Instructions PERSON INFORMATION Name: AISLINN WHEELER Date of : 1960 Current Date: 05/22/2023 11:29:02 PHYSICIANS Admitting Physician: Lisa Porras MD Comment: Discharge Diagnosis: Feeling of incomplete bladder emptying; Mixed incontinence; Urinary leakage AISLINN WHEELER has been given the following list of follow-up instructions, prescriptions, and patient education materials: IF UNABLE TO CONTACT YOUR PHYSICIAN AND YOU FEEL IT IS AN EMERGENCY, GO TO THE NEAREST EMERGENCY ROOM OR CALL 911 Follow up: With: Address: When: Lisa Porras [address] [place] [id number] [phone] Business (1) [address] [place], [place] [id number] [phone] Business (1) Comments: Office to schedule follow up in 1 month with P[facility] Comment: PATIENT EDUCATION INFORMATION Instructions: Cystoscopy with Botox injection ? Voiding after the procedure: there may be some pain, burning, urgency, frequency and blood tinged urine following the procedure. These symptoms usually resolve within 2-5 days. Drink the amount of fluid it takes to keep the urine pink to yellow or clear in color. Drinking enough water and fluids will help to ease any discomfort after your procedure. ? It may take a few days to a week to notice a gradual improvement in the overactive bladder symptoms. ? If you are having problems that seem out of the ordinary, please call. ? If unable to contact your physician and you feel it is an emergency, go to the nearest emergency room or call 911 ? Do not lift more than fifteen pounds for 1-2 days. If you see a lot of blood, you probably did too much. ? Diet ? you may resume your normal diet. ? Pain control ? You may take extra strength Tylenol or Motrin for discomfort. ? Call if you have a fever over 100 degrees. I, AISLINN WHEELER, have received the attached patient education materials/instructions and have verbalized understanding: May we do a follow up call? Yes No I was present when discharge instructions were given 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ature Date Clinican/Nurse Signature _ Date You may receive a survey from Claire Rangel asking you to rate your care experience. Your feedback is important and will help us understand what we do well and how we can improve the quality of care we provide to you, your loved ones and our community. It?s an honor to serve you. Thank you for choosing [facility] Normal [facility] Consultation Noteon 05-19-20 Consultation Note [id number] D:127 Normal [facility] A1C HEMOGLOBINon 05-18-2023 HbA1c (Bld) [Mass fraction] 14.0 % [facility] Other [facility] AILSINN WHEELER ([id number]) 1960 F Date Time Provider Department 05/18/23 TAURUS BALLARD During your visit today, we recorded the following information about you: Latosha Faulkner 05/18/2023 1:01 PM Signed Consult notes sent back to Dr. Lisa Porras , phone [phone]. From Dr. Ballard office. Allergies As of Date: 05/18/2023 Noted Allergy Reaction LATEX 02/05/2020 2 - Rash Comments: Added based on information entered during case entry, please review and add reactions, type, and severity as needed Date Reviewed: 05/17/2023 Reviewed by: Afia Ware MA - Fully Assessed Reason for Visit: Follow Up [171] Prescriptions as of 06/09/2023 - FEROSUL 325 mg (65 mg iron) tablet Take 1 tablet by mouth three times daily with meals. - VITAMIN B-12 1,000 mcg tab Take 1,000 mcg by mouth once daily. - insulin aspart (NOVOLOG FLEXPEN U-100 INSULIN SUBCUTANEOUS) Inject subcutaneously. Sliding scale - insulin glargine (LANTUS) 100 unit/mL injection Inject 25 Units subcutaneously daily at bedtime. - albuterol HFA (PROVENTIL HFA, VENTOLIN HFA) 90 mcg/actuation inhaler Inhale 2 Puffs as instructed every 6 hours as needed for wheezing/shortness of breath. - pregabalin (LYRICA) 150 mg capsule Take 150 mg by mouth three times daily. - HYDROcodone-Acetaminoph en (NORCO) 7.5-325 mg per tablet Take 1 tablet by mouth three times daily as needed. Problem List As Of Date 05/18/2023 Noted Resolved Ureterolithiasis [N20.1] 01/17/2021 Acute bilateral obstructive uropathy [N13.9] 01/17/2021 Pyelonephritis [N12] 01/17/2021 01/21/2021 Sepsis (HCC) [A41.9] 01/17/2021 01/21/2021 Hyponatremia [E87.1] 01/17/2021 01/21/2021 Hyperkalemia [E87.5] 01/17/2021 01/21/2021 ANATOLIY (acute kidney injury) (HCC) [N17.9] 01/17/2021 Hydronephrosis due to obstruction of ureter [N1*01/17/2021 01/21/2021 Generalized weakness [R53.1] 01/17/2021 Falls frequently [R29.6] 01/17/2021 Acute cystitis without hematuria [N30.00] 01/18/2021 01/21/2021 Severe protein-calorie malnutrition (HCC) [E43] 01/19/2021 Bladder outlet obstruction [N32.0] 01/29/2021 Encounter Status:Closed by DERIK FERNANDEZ on 06/09/23 [facility] Glucose - FINGER STICKon Glucose [Mass/Vol] 429 mg/dL [facility] Other HbA1c (Bld) [Mass fraction]o n 05-18-2023 A1C HEMOGLOBIN [facility] [employer] Other CNOVon 05-17-2023 CNOV Office Visit (URFHR) AISLINN WHEELER ([id number]) 1960 F Date Time Provider Department 05/17/23 1:10 PM TAURUS BALLARD URR During your visit today, we recorded the following information about you: Temperature Pulse Blood pressure Weight 97.5 degrees 70/minute 172/81 60.1 kg Taurus Ballard MD 05/17/2023 1:35 PM Signed [facility] UROLOGICAL [place] FOLLOW-UP PATIENT HISTORY AND PHYSICAL EXAM PATIENT INFO: Aislinn Wheeler 63 year old REFERRING M.D.: No referring provider defined for this encounter. CHIEF COMPLAINT: Cystic Bosniak 2F lesion, ANATOLIY HISTORY: Aislinn Wheeler is a 63 yr old female with a hx of urinary incontinence, uncontrolled DM, and severe urinary retention. Had b/l hydronephrosis and ANATOLIY which resolved with chaves catheter placement. Pt followed with Dr. Nolen and Alicia Pablo. MRI showed a bosniak 2F lesion CT 05/10/2023- left lower pole cystic lesion measuring 9.4 x 6.8 cm rotating the kidney RBUS 05/11/23- 8.7 x 8.2x 7.1 cystic lesion Pt reports left flank pain when bending or moving. Had cysto/UDS with Dr. Nolen 03/01/2021 UDS: No detrusor function on voiding- all valsalva voiding. No DO or BURKE. Able to void 89cc and instilled 318cc. Last seen by Bina Pablo 10/27/2021 at which time the plan was lifestyle modifications and Myrbetriq for OAB, UCX for dysuria, and continue CIC 4x daily for retention LABS No results found for: PSA Creatinine (mg/dL) Date Value 01/29/2021 1.35 01/21/2021 1.51 01/20/2021 1.46 01/19/2021 1.92 01/19/[address] scan (outside records) [facility] 09/28/21 IMPRESSION: Since the prior CT scan and MRI the left kidney shows significant rotation on its vertical axis. The left renal pelvis now points laterally. This may relate to mass effect and rotation from a large lateral left renal cyst which shows interval growth from prior studies. This cyst has minimal internal complexity including septations. As above, there is mild dilatation of the mid to distal left ureter now present of unclear significance or etiology as I don't identify obstructing stone or mass. Follow-up CT imaging with IV contrast may be helpful for further evaluation of these findings including the left ureter, left kidney and complex cyst in the left kidney. MRI Kidney 01/20/2021 IMPRESSION: Bosniak category 2F cyst within the lower pole of the left kidney measuring 7.8 x 7 x 7.2 cm. Recommend follow-up in 6 months. Mild bilateral hydronephrosis. PAST MEDICAL HISTORY Diagnosis Date Asthma Diabetes (HCC) PAST SURGICAL HISTORY Procedure Laterality Date ANKLE SURGERY HX Left HYSTERECTOMY HX NECK SURGERY HX SHOULDER SURGERY HX Left Social History Tobacco Use Smoking status: Never Smokeless tobacco: Never Vaping Use Vaping Use: Never used Substance Use Topics Alcohol use: Yes Comment: socially Drug use: Never REVIEW OF SYSTEMS: CONSTITUTIONAL: Patient reports no recent fever or weight loss EYES: Negative for redness, blurry vision, double vision or loss of vision CARDIOVASCULAR: Negative for chest pain. RESPIRATORY: Negative for cough, hemoptysis, wheezing, COPD, dyspnea or shortness of breath GI: No nausea, vomiting, or diarrhea MUSCULOSKELETAL: denies back pain or muscular weakness SKIN: Negative for lesions, rash, and itching PSYCH: Negative for sleep disturbance, mood disorder and recent psychosocial stressors. ALLERGY/IMMUNOLOGIC: Latex All other reviewed and negative other than HPI. PHYSICAL EXAM: constitutional: appears healthy in no acute distress cardiovascular: appears well perfused, good color respiratory: normal respiratory motion gi: abdomen soft, non-tender without masses, hernia or organomegaly skin: no rashes or bruises noted. Extremities: Extremities normal. No deformities, edema, or skin discoloration. Neuro: Gait normal. Sensation grossly intact. IMPRESSION: Aislinn Wheeler is a 63 yr old female with a hx of urinary incontinence, uncontrolled DM, and severe urinary retention. Had b/l hydronephrosis and ANATOLIY which resolved with chaves catheter placement. Pt followed with Dr. Nolen and Alicia Pablo. MRI showed a bosniak 2F lesion. S/p cholecystectomy and hysterectomy. Reviewed most recent imaging. US on 09/12/22 showed a 8.7 x 8.2x 7.[address] 05/10/2023 which showed left lower pole cystic lesion measuring 9.4 x 6.8 cm rotating the kidney. Pt reports left flank pain when bending or moving. Recommended laparoscopic robotic kidney cyst ablation. Discussed risks and benefits with pt and described procedure in detail. All questions and concerns were addressed Discussed R/B/A of an laparoscopic left cyst decordication . Discussed risks of bleeding (possibly requiring transfusion), infection, injury to adjacent structures (e.g. spleen, pancreas, aorta, among other structures) (more content not included)... Normal [facility] C Urineon 05-13-2023 Bacteria identified Cx Nom (U) Microbiology PROCEDURE: Urine Culture [R1] SOURCE: U CleanCatch BODY SITE: COLLECTED DATE/TIME: 05/11/2023 11:49 EDT RECEIVED DATE/TIME: 05/11/2023 18:32 EDT START DATE/TIME: 05/11/2023 18:32 EDT FREE TEXT SOURCE: CATALINA VIRGEN, HEIDY ARNOLD PA-C, HEIDY Rodriguez FINAL REPORTS Final Report [] Verified Date/Time: 05/13/2023 11:12 EDT >100,000 cfu/ml Escherichia coli SUSCEPTIBILITY RESULTS ____ LEGEND: S=Susceptible, N/R=Not Reported, Blank=Data not available, or drug not advisable or tested, I=Intermediate, ESBL=Extended spectrum beta-lactamase, R=Resistant, TFG=Thymidine-dependent strain, VINEET=Beta-lactamase positive, LOCO=mcg/m;(mg/L), S*=Predicted susceptible interp, R*=Predicted resistant interp ___ EC Antibiotic LOCO Dilutn LOCO Interp Amikacin <=16 S Ampicillin <=8 S Ampicillin/ <=8/4 S Sulbactam Aztreonam <=4 S Cefazolin <=2 S Cefepime <=2 S Cefoxitin <=8 S Ceftazidime <=1 S Ceftazidime/ <=8 S Avibactam Ceftriaxone <=1 S Ciprofloxacin <=1 S Ertapenem <=0.5 S Gentamicin <=4 S Levofloxacin <=2 S Meropenem <=1 S Nitrofurantoin <=32 S Piperacillin/ <=16 S Tazobactam Tetracycline <=4 S Tigecycline <=2 S Tobramycin <=4 S Trimethoprim/ <=2/38 S Sulfa Performing Locations R1: This test was performed at: [facility], [address] [place] [address], [phone] , [place], Normal [facility] Comment on above: Performed By: #### 2 [id number] ####[facility] [address] [place] [address] Physician Referralon 023 Physician Referral [id number] :127 PATIENT IS SCHEDULED 05/17/2023 [facility] Consultation Noteon 05-04-20 23 Consultation Note [id number] :127 Normal [facility] Insurance Correspondenceon 0 05-04-2023 Insurance Correspondence [id number] CD:127 Normal [facility] Urology Office/Clinic Noteon 05-04-2023 Urology Office/Clinic Note Chief Complaint 2m PVR HPI Staff 2m PVR DX: Renal Mass (per last encounter no further surveillance), Renal Cyst, Mixed Incontinence, Feeling of Incomplete Bladder Emptying & Glucosuria *Started on Trospium 20mg qd at time of last encounter Has not noticed improvement with Trospium therapy. Would like to discuss other possible medications/procedures for bladder control. Pt was unable to provide urine specimen today. Random Scan 142ml Still leaking with activity & coughing. Urge wakes her up 4-5x/night. Usually wakes up wet. Does wear protection. Pt states she was told by [facility] that mass on Kidney was not cancerous. However pilot boat captain told her she has kidney cancer. Denies biopsy. States they did CT. Occasional small voids. Foot is improving and healing. BBS [address] Sprague office and request last encounter be faxed to our office. History of Present Illness Tests reviewed: reviewed UA. I have reviewed the previous health record information and history for this patient from . I have reviewed and verified the staff HPI to be accurate for this encounter. There have been no associated fever, chills,, or blood in the urine. Denies any urinary infections since last encounter. Review of Systems PHQ Score Initial Depression Screen Score: 0 ROS - Provider Constitutional: denies weight loss, denies hot flashes. Eyes: denies eye problems. Gastrointestinal: denies nausea, denies vomiting. Cardiovascular: denies chest pain or angina. Integumentary: no dryness Musculoskeletal: denies musculoskeletal symptoms. ENMT: denies otolaryngeal symptoms. Respiratory: no shortness of breath. Heme/Lymph: denies easy bleeding tendency, denies easy bruising tendency. Psychiatric: no confusion, no anxiety. Genitourinary: See HPI. Physical Exam Vitals & Measurements HR: 68(Peripheral) RR: 16 BP: 110/68 HT: 60 in HT: 153 cm WT: 59 kg WT: 129.8 lb BMI: 25.2 General Appearance: alert , no acute distress, well nourished, well developed female. Genitourinary: bladder nonpalpable, no flank pain. Assessment/Plan 63 yo F with uncontrolled DM2 (A1c 11) complicated by sepsis/osteomyelitis - Foot is improving and healing. PSH lap cholecystectomy, open hysterectomy -Continues with pilot boat captain for CKD3 1. Renal cyst (N28.1: Cyst of kidney, acquired) MRI w/won con done 01/20/21 shows Bosniak category 2F cyst within the lower pole of the left kidney measuring 7.8 x 7 x 7.2 cm. This is stable as far as 2F staging, but shows increase in size (previously 10/2014 - 7.2 x 5.8 x 5.4 cm and 03/2014 - 6.4 x 5.1 x 4.6 cm) 07/06/22: Crea 2.01. eGFR 25. (During sepsis/osteomyelitis) 08/03/22: Crea 1.36 eGFR 36. CONNOR done 09/15/22 shows 1.3 cm mass versus area of lobulation involving inferior pole lateral wall of right kidney. Chronic large complex cyst arising from left kidney measuring 8.7 x 8.2 x 7.1 cm. This has increased slightly in size since 2016, but still favors benign etiology. CTU 02/13/23 - 9.4 x 6.8 cm, multiple thin septations without enhancement. Bosniak 2 cyst. Malrotated kidney Endorses L flank pain Again discussed mgmt options for cyst including observation vs aspiration vs cyst decortication. Discussed risks/benefits of each, including bowel/spleen injury, recurrence, persistence of pain. Advised pt that we would need to refer to tertiary center given elevated risk of periop complications, if she would want to get this done. She desires definitive treatment given flank pain limiting her daily life. -Will refer pt to tertiary center, Dr. Ballard at [facility] for evaluation of robotic left cyst decortication -Pt states pilot boat captain told her she has cancer. 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 Ordered: [id number] Measure Post Void residual urine and/or bladder capacity by US- non-imaging Urnls Dip Stick Auto w/o Microscopy POC 30815 2. Mixed incontinence (N39.46: Mixed incontinence) Pt d/c Myrbetriq 50 mg QD due to hair loss, however this was actually from oxybutynin. She never tried mirabegron due to lopez. Never called to update us Pt is currently taking Trospium 20mg QD. Has not noticed improvement with Trospium therapy. No SE's BBS 24(11). Hx of hysterectomy for fibroid tumors and heavy bleeding many years ago. BURKE - Leaks with sneezing, coughing. UUI - on the way to the restroom. Occasional full incontinence. Wears a pad. Urge > stress. Pt states that she drinks 4 bottles of water a day. Pt feels irritation from wearing a pad for leaking. Discussed starting Estrace cream. Pt states that she is interested in doing this. Advised pt that this would take about 3 mos to start taking effect. Would like to discuss other possible medications/procedures for bladder control. Still leaking with activity & coughing. Urge wakes her up 4-5x/night. Usually wakes up wet. Does wear protection. Advised pt that we could increase the dose from QD to BID. Discussed the risks and benefits of Botox. (more content not included)... Normal [facility] Comment on above: Result Comment: Elec tronically Signed By: Vern TAVERAS, Lisa Montiel\.br\Date and Time Signed: 05/04/23 14:11 EDT Ambulatory Visit Summaryon 0 05-03-2023 Ambulatory Visit Summary AISLINN WHEELER :1960 Visit Date:05/03/2023 Ambulatory Visit Instructions Your Diagnosis Renal mass Renal cyst Mixed incontinence Feeling of incomplete bladder emptying Glucosuria Tests Performed Urnls Dip Stick Auto w/o Microscopy POC 44618 Your Care Team Attending Physician - Lisa Porras MD Primary Care Physician - LATOSHA OLMSTEAD CNP This Is Your Medications List cephalexin (Keflex 500 mg Cap) estradiol topical (Estrace 0.1 mg/g Cream) trospium (trospium 20 mg oral tablet) Contact prescribing physician if questions or concerns acetaminophen-hydrocodo ne (acetaminophen-hydrocod one 325 mg-7.5 mg oral tablet) amlodipine (amLODIPine 5 mg Tab) folic acid (folic acid 1 mg Tab) insulin aspart (Insulin Aspart FlexPen) potassium chloride (potassium chloride 10 mEq Cap-ER) pregabalin (pregabalin 150 mg Cap) Procedures Performed Ankle, Arm, Arthroscopy of knee, Cataract, Gallbladder, Hysterectomy, Neck, Shoulder. Discharge Vitals Heart Rate (Peripheral) 68 Respiratory Rate 16 Blood Pressure 110/68 Height 153 cm Height 60 in Weight 59 kg Weight 129.8 lb BMI 25.2 What to do next Scheduled Follow-Up Appointments Monday 12:30 PM EDT Where: [facility] Monday 10:30 AM EDT Where: [facility] You Need to Schedule the Following Appointments Follow Up with Vern TAVERAS, Lisa Montiel, URL, URO When: Comments: Sched Botox. Where: Medications What How Much When Instructions New cephalexin (Keflex 500 mg Cap) 1 Capsules By Mouth 2 times a day Duration: 3 Days Start one day prior to procedure Pickup at [facility] New estradiol topical (Estrace 0.1 mg/ g Cream) See instructions Refills: 3 apply pea size amount to urethra/ inner vagina 3x/ week x 1 month, then 2x/ week for maintainence Pickup at [facility] Unchanged trospium (trospium 20 mg oral tablet) 1 Tablets By Mouth Every day Unchanged acetaminophen-hydrocodo ne (acetaminophen-hydrocod one 325 mg-7.5 mg oral tablet) Contact prescribing physician if questions or concerns Unchanged amlodipine (amLODIPine 5 mg Tab) Contact prescribing physician if questions or concerns Unchanged folic acid (folic acid 1 mg Tab) Contact prescribing physician if questions or concerns Unchanged insulin aspart (Insulin Aspart FlexPen) Subcutaneous Before meals Contact prescribing physician if questions or concerns Unchanged potassium chloride (potassium chloride 10 mEq Cap-ER) Contact prescribing physician if questions or concerns Unchanged pregabalin (pregabalin 150 mg Cap) Contact prescribing physician if questions or concerns Pharmacy Information [facility]: [address] [place], [place] [id number] [phone] Test Results Urnls Dip Stick Auto w/o Microscopy POC 21780 (05/03/2023) Bilirubin Urine Dipstick - Negative Blood Urine Dipstick - Trace-intact Glucose Urine Dipstick - 3+ 1000 mg/dl Ketones Urine Dipstick - Negative Leukocytes Urine Dipstick - Negative Nitrite Urine Dipstick - Negative Protein Urine Dipstick - Trace Specific [place] Urine Dipstick - 1.015 Urine Appearance Urine Dipstick - Clear Urine Color Urine Dipstick - Yellow Urobilinogen Urine Dipstick - Normal 0.2-1 EU/dl pH Urine Dipstick - 5 Allergies Latex (Eruption) Problems Ongoing - Any problem that you are currently receiving treatment for. Chronic kidney disease stage 3 Essential hypertension Feeling of incomplete bladder emptying Glucosuria Heart failure Hyperkalemia Incomplete bladder emptying Iron deficiency anemia, unspecified Mixed incontinence Personal history of transient ischemic attack Renal cyst Renal mass Type 2 diabetes mellitus Ureteric stone Urinary leakage Urinary tract infection Education Materials Kegel Exercises Kegel exercises can help strengthen your pelvic floor muscles. The pelvic floor is a group of muscles that support your rectum, small intestine, and bladder. In females, pelvic floor muscles also help support the uterus. These muscles help you control the flow of urine and stool (feces). Kegel exercises are painless and simple. They do not require any equipment. Your provider may suggest Kegel exercises to: ? Improve bladder and bowel control. ? Improve sexual response. ? Improve weak pelvic floor muscles after surgery to remove the uterus (hysterectomy) or after , in females. ? Improve weak pelvic floor muscles after prostate gland removal or surgery, in males. Kegel exercises involve squeezing your pelvic floor muscles. These are the same muscles you squeeze when you try to stop the flow of urine or keep from passing gas. The exercises can be done while sitting, standing, or lying down, but it is best to vary your position. Ask your health care provider which exercises are saf (more content not included)... Normal [facility] Patient Educationon 05-03-20 Patient Education Obstetrics and Gynecology Kegel Exercises Kegel exercises can help strengthen your pelvic floor muscles. The pelvic floor is a group of muscles that support your rectum, small intestine, and bladder. In females, pelvic floor muscles also help support the uterus. These muscles help you control the flow of urine and stool (feces). Kegel exercises are painless and simple. They do not require any equipment. Your provider may suggest Kegel exercises to: ? Improve bladder and bowel control. ? Improve sexual response. ? Improve weak pelvic floor muscles after surgery to remove the uterus (hysterectomy) or after , in females. ? Improve weak pelvic floor muscles after prostate gland removal or surgery, in males. Kegel exercises involve squeezing your pelvic floor muscles. These are the same muscles you squeeze when you try to stop the flow of urine or keep from passing gas. The exercises can be done while sitting, standing, or lying down, but it is best to vary your position. Ask your health care provider which exercises are safe for you. Do exercises exactly as told by your health care provider and adjust them as directed. Do not begin these exercises until told by your health care provider. Exercises How to do Kegel exercises: 1. Squeeze your pelvic floor muscles tight. You should feel a tight lift in your rectal area. If you are a female, you should also feel a tightness in your vaginal area. Keep your stomach, buttocks, and legs relaxed. 2. Hold the muscles tight for up to 10 seconds. 3. Breathe normally. 4. Relax your muscles for up to 10 seconds. 5. Repeat as told by your health care provider. Repeat this exercise daily as told by your health care provider. Continue to do this exercise for at least 4?6 weeks, or for as long as told by your health care provider. You may be referred to a physical therapist who can help you learn more about how to do Kegel exercises. Depending on your condition, your health care provider may recommend: ? Varying how long you squeeze your muscles. ? Doing several sets of exercises every day. ? Doing exercises for several weeks. ? Making Kegel exercises a part of your regular exercise routine. This information is not intended to replace advice given to you by your health care provider. Make sure you discuss any questions you have with your health care provider. Document Revised: 12/16/2021 Document Reviewed: 12/16/2021 Else5 examples Patient Education ? 2022 [employer]. [facility] [place] 05-03-2023 Screens [id number] CD:127 [facility] C Urineon 04-20-2023 Bacteria identified Cx Nom (U) Microbiology PROCEDURE: Urine Culture [R1] SOURCE: U CleanCatch BODY SITE: COLLECTED DATE/TIME: 04/18/2023 11:52 EDT RECEIVED DATE/TIME: 04/18/2023 19:20 EDT START DATE/TIME: 04/18/2023 19:20 EDT FREE TEXT SOURCE: HEIDY ARNOLD PA-C, PA-C, HEIDY Rodriguez FINAL REPORTS Final Report [] Verified Date/Time: 04/20/2023 09:05 EDT >100,000 cfu/ml Escherichia coli SUSCEPTIBILITY RESULTS ____ LEGEND: S=Susceptible, N/R=Not Reported, Blank=Data not available, or drug not advisable or tested, I=Intermediate, ESBL=Extended spectrum beta-lactamase, R=Resistant, TFG=Thymidine-dependent strain, VINEET=Beta-lactamase positive, LOCO=mcg/m;(mg/L), S*=Predicted susceptible interp, R*=Predicted resistant interp ___ EC Antibiotic LOCO Dilutn LOCO Interp Amikacin <=16 S Ampicillin <=8 S Ampicillin/ <=8/4 S Sulbactam Aztreonam <=4 S Cefazolin <=2 S Cefepime <=2 S Cefoxitin <=8 S Ceftazidime <=1 S Ceftazidime/ <=8 S Avibactam Ceftriaxone <=1 S Ciprofloxacin <=1 S Ertapenem <=0.5 S Gentamicin <=4 S Levofloxacin <=2 S Meropenem <=1 S Nitrofurantoin <=32 S Piperacillin/ <=16 S Tazobactam Tetracycline <=4 S Tigecycline <=2 S Tobramycin <=4 S Trimethoprim/ <=2/38 S Sulfa Performing Locations R1: This test was performed at: [facility], [address] [place] [address], [facility]- , , [facility] Comment on above: Performed By: #### [id number] #### [facility] [address] [place] [address] Ambulatory Visit Summaryon 0 04-18-2023 Ambulatory Visit Summary AISLINN WHEELER :1960 Visit Date:04/18/2023 Ambulatory Visit Instructions Your Diagnosis Urinary tract infection Your Care Team Attending Physician - Vern TAVERAS, Lisa Montiel Primary Care Physician - LATOSHA OLMSTEAD CNP This Is Your Medications List acetaminophen-hydrocodo ne (acetaminophen-hydrocod one 325 mg-7.5 mg oral tablet) amlodipine (amLODIPine 5 mg Tab) folic acid (folic acid 1 mg Tab) insulin aspart (Insulin Aspart FlexPen) potassium chloride (potassium chloride 10 mEq Cap-ER) pregabalin (pregabalin 150 mg Cap) trospium (trospium 20 mg oral tablet) Procedures Performed Ankle, Arm, Arthroscopy of knee, Cataract, Gallbladder, Hysterectomy, Neck, Shoulder. What to do next Scheduled Follow-Up Appointments Monday 10:00 AM EDT With: Lisa Porras MD Where: [facility] [place] 02-23-2023 Screens [id number] CD:127 [facility] Ambulatory Visit Summaryon 0 02-22-2023 Ambulatory Visit Summary AISLINN WHEELER :1960 Visit Date:02/22/2023 Ambulatory Visit Instructions Your Diagnosis Renal mass Renal cyst Mixed incontinence Feeling of incomplete bladder emptying Glucosuria Tests Performed Urnls Dip Stick Auto w/o Microscopy POC 55646 Your Care Team Attending Physician - Lisa Porras MD Primary Care Physician - LATOSHA OLMSTEAD CNP This Is Your Medications List trospium (trospium 20 mg oral tablet) Contact prescribing physician if questions or concerns acetaminophen-hydrocodo ne (acetaminophen-hydrocod one 325 mg-7.5 mg oral tablet) amlodipine (amLODIPine 5 mg Tab) folic acid (folic acid 1 mg Tab) insulin aspart (Insulin Aspart FlexPen) potassium chloride (potassium chloride 10 mEq Cap-ER) pregabalin (pregabalin 150 mg Cap) [Image Removed: STOP]Stop taking these medications mirabegron (Myrbetriq 50 mg oral tablet, extended release) Procedures Performed Ankle, Arm, Arthroscopy of knee, Cataract, Gallbladder, Hysterectomy, Neck, Shoulder. Discharge Vitals Heart Rate (Peripheral) 76 Blood Pressure 106/66 Height 153 cm Height 60 in Weight 52.5 kg Weight 115.5 lb BMI 22.43 What to do next Scheduled Follow-Up Appointments Monday 10:00 AM EDT With: Lisa Porras MD Where: [facility] [place] Normal [facility] Patient Educationon 02-23-20 23 Patient Education Obstetrics and Gynecology Kegel Exercises Kegel exercises can help strengthen your pelvic floor muscles. The pelvic floor is a group of muscles that support your rectum, small intestine, and bladder. In females, pelvic floor muscles also help support the uterus. These muscles help you control the flow of urine and stool (feces). Kegel exercises are painless and simple. They do not require any equipment. Your provider may suggest Kegel exercises to: ? Improve bladder and bowel control. ? Improve sexual response. ? Improve weak pelvic floor muscles after surgery to remove the uterus (hysterectomy) or after , in females. ? Improve weak pelvic floor muscles after prostate gland removal or surgery, in males. Kegel exercises involve squeezing your pelvic floor muscles. These are the same muscles you squeeze when you try to stop the flow of urine or keep from passing gas. The exercises can be done while sitting, standing, or lying down, but it is best to vary your position. Ask your health care provider which exercises are safe for you. Do exercises exactly as told by your health care provider and adjust them as directed. Do not begin these exercises until told by your health care provider. Exercises How to do Kegel exercises: 1. Squeeze your pelvic floor muscles tight. You should feel a tight lift in your rectal area. If you are a female, you should also feel a tightness in your vaginal area. Keep your stomach, buttocks, and legs relaxed. 2. Hold the muscles tight for up to 10 seconds. 3. Breathe normally. 4. Relax your muscles for up to 10 seconds. 5. Repeat as told by your health care provider. Repeat this exercise daily as told by your health care provider. Continue to do this exercise for at least 4?6 weeks, or for as long as told by your health care provider. You may be referred to a physical therapist who can help you learn more about how to do Kegel exercises. Depending on your condition, your health care provider may recommend: ? Varying how long you squeeze your muscles. ? Doing several sets of exercises every day. ? Doing exercises for several weeks. ? Making Kegel exercises a part of your regular exercise routine. This information is not intended to replace advice given to you by your health care provider. Make sure you discuss any questions you have with your health care provider. Document Revised: 12/16/2021 Document Reviewed: 12/16/2021 Else5 examples Patient Education ? 2022 [employer]. Fabio Zaragoza [facility] Urology Office/Clinic Noteon 02-22-2023 Urology Office/Clinic Note Chief Complaint 5 month follow up w/ CTU HPI Staff 5m follow up with CTU DX: Renal Cyst, Mixed Incontinence, Incomplete Bladder Emptying & Glucosuria. *Oxybutynin DC'd at time of last encounter & pt started on Myrbetriq 50mg QD therapy. Pt was referred to Nephrology. Saw Dr Eli Sprague 12/27/22. Will follow up with him in March. CTU 02/13/23 (6hrs IV Hydration prior per Dr Sprague request) Cr 02/13/23- 1.78 EGFR ADRIEL 02/13/23- 29 Pt states she stopped Myrbetriq due to hair loss. PVR today 32ml. Dysuria: denies pain and burning Incomplete bladder emptying: unsure Hematuria: denies visible blood Frequency: 1x a day Urgency: yes Nocturia: 3-4x a night Stream: hesitant stream, weak stream Leaking: yes Post void dripping: yes Wearing pads/ Depends: wears pad daily, changes 2x a day Urge incontinence: yes Stress incontinence: yes Incontinence without Sensory Awareness: yes Abdominal pain: denies Flank pain: bilateral pain History of Present Illness Tests reviewed: reviewed UA, CTU, nephrology notes I have reviewed the previous health record information and history for this patient from Dr. Porras and external providers I have reviewed and verified the staff HPI to be accurate for this encounter. There have been no associated fever, chills, or blood in the urine. Denies any urinary infections since last encounter. Review of Systems PHQ Score Initial Depression Screen Score: 0 ROS - Provider Constitutional: denies weight loss, denies hot flashes. Eyes: denies eye problems. Gastrointestinal: denies nausea, denies vomiting. Cardiovascular: denies chest pain or angina. Integumentary: no dryness Musculoskeletal: denies musculoskeletal symptoms. ENMT: denies otolaryngeal symptoms. Respiratory: no shortness of breath. Heme/Lymph: denies easy bleeding tendency, denies easy bruising tendency. Psychiatric: no confusion, no anxiety. Genitourinary: See HPI. Physical Exam Vitals & Measurements HR: 76(Peripheral) BP: 106/66 HT: 60 in HT: 153 cm WT: 52.5 kg WT: 115.5 lb BMI: 22.43 General Appearance: alert , no acute distress, well nourished, well developed female. LLE foot in boot Assessment/Plan 63 yo F with uncontrolled DM2 (A1c 11) complicated by sepsis/osteomyelitis- much improved from prior but now getting sores on leg, still in boot, and renal cyst, possible mass here for follow up. 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 Renal mass (N28.89: Other specified disorders of kidney and ureter) CONNOR done 09/15/22 shows 1.3 cm mass versus area of lobulation involving inferior pole lateral wall of right kidney CTU 02/13/23 - Negative for mass on right kidney -No further surveillance 2. Renal cyst (N28.1: Cyst of kidney, acquired) MRI w/won con done 01/20/21 shows Bosniak category 2F cyst within the lower pole of the left kidney measuring 7.8 x 7 x 7.2 cm. This is stable as far as 2F staging, but shows increase in size (previously 10/2014 - 7.2 x 5.8 x 5.4 cm and 03/2014 - 6.4 x 5.1 x 4.6 cm) 07/06/22: Crea 2.01. eGFR 25. (During sepis/osteomyelitis) 08/03/22: Crea 1.36 eGFR 36. CONNOR done 09/15/22 shows 1.3 cm mass versus area of lobulation involving inferior pole lateral wall of right kidney. Chronic large complex cyst arising from left kidney measuring 8.7 x 8.2 x 7.1 cm. This has increased slightly in size since 2016, but still favors benign etiology. CTU 02/13/23 - 9.4 x 6.8 cm, multiple thin septations without enhancement. Bosniak 2 cyst. Malrotated kideny Endorses L flank pain Again discussed mgmt options for cyst including observation vs aspiration vs cyst decortication. Discussed risks/benefits of each, including bowel/spleen injury, recurrence, persistence of pain. -Will follow up in a few months to see if DM2 better and foot has healed. If not, will refer to tertiary center given elevated risk of periop complications 3. Mixed incontinence (N39.46: Mixed incontinence) Pt d/c Myrbetriq 50 mg QD due to hair loss, however this was actually from oxybutynin. She never tried mirabgeron due to lopez. Never called to update us ICIQ-SF 11 (None). Hx of hysterectomy for fibroid tumors and heavy bleeding many years ago. BURKE - Leaks with sneezing, coughing. UUI - on the way to the restroom. Occasional full incontinence. Wears a pad. Urge > stress. Discussed starting Trospium 20mg Daily. Pt agrees with plan of starting new med. Discussed botox in the future if med does not improve pt's symptoms. Advised pt to stop fluids 1-2 hrs before bed and to drink more fluids during the day. -Will try trospium 20mg Daily. Discussed the medication side effects, and the patient will monitor closely for these, as well as for symptom improvement. If severe side effects occur, the medication should be stopped and the (more content not included)... [facility] Comment on above: Result Comment: Elec tronically Signed By: Lisa Porras MD\.br\Date and Time Signed: 02/22/23 10:14 EDT\.br\Electronically Co-Signed By: Marilee Gray\.br\Date and Time Co-Signed: 02/22/23 09:36 EDT Lab Reportson 02-20-2023 Lab Reports [id number] D:127 [facility] RAD - CT Reporton 02-20-2023 RAD - CT Report [id number] :127 [facility] Physician Orderon 02-01-2023 Physician Order [id number] :127 [facility] Consultation Noteon 01-08-20 Consultation Note [id number] D:127 Normal [facility] XR FOOT LT MIN 3 VIEWSon XR FOOT LT MIN 3 VIEWS Normal [facility] MG MAMM SCREEN 3D ALINE CADon 12-28-2022 MG MAMM SCREEN 3D ALINE CAD Normal [facility] XR DEXA BONE DENSITYon 12-28 XR DEXA BONE DENSITY Normal [facility] NM STRESS/REST MULTIon 12-15 NM STRESS/REST MULTI Normal [facility] XR FOOT LT MIN 3 VIEWSon XR FOOT LT MIN 3 VIEWS Normal [facility] Physician Referralon 023 Physician Referral [id number] D:127 Normal [facility] CT FOOT LT WO CONon 10-28-19 CT FOOT LT WO CON Normal [facility] XR FOOT LT MIN 3 VIEWSon XR FOOT LT MIN 3 VIEWS Normal [facility] XR FOOT LT MIN 3 VIEWSon XR FOOT LT MIN 3 VIEWS Normal [facility] XR FOOT LT MIN 3 VIEWSon XR FOOT LT MIN 3 VIEWS Normal [facility] XR FOOT LT MIN 3 VIEWSon XR FOOT LT MIN 3 VIEWS Normal [facility] Patient Educationon 09-21-19 Patient Education Obstetrics and Gynecology Kegel Exercises Kegel exercises can help strengthen your pelvic floor muscles. The pelvic floor is a group of muscles that support your rectum, small intestine, and bladder. In females, pelvic floor muscles also help support the womb (uterus). These muscles help you control the flow of urine and stool. Kegel exercises are painless and simple, and they do not require any equipment. Your provider may suggest Kegel exercises to: ? Improve bladder and bowel control. ? Improve sexual response. ? Improve weak pelvic floor muscles after surgery to remove the uterus (hysterectomy) or (females). ? Improve weak pelvic floor muscles after prostate gland removal or surgery (males). Kegel exercises involve squeezing your pelvic floor muscles, which are the same muscles you squeeze when you try to stop the flow of urine or keep from passing gas. The exercises can be done while sitting, standing, or lying down, but it is best to vary your position. Exercises How to do Kegel exercises: 1. Squeeze your pelvic floor muscles tight. You should feel a tight lift in your rectal area. If you are a female, you should also feel a tightness in your vaginal area. Keep your stomach, buttocks, and legs relaxed. 2. Hold the muscles tight for up to 10 seconds. 3. Breathe normally. 4. Relax your muscles. 5. Repeat as told by your health care provider. Repeat this exercise daily as told by your health care provider. Continue to do this exercise for at least 4?6 weeks, or for as long as told by your health care provider. You may be referred to a physical therapist who can help you learn more about how to do Kegel exercises. Depending on your condition, your health care provider may recommend: ? Varying how long you squeeze your muscles. ? Doing several sets of exercises every day. ? Doing exercises for several weeks. ? Making Kegel exercises a part of your regular exercise routine. This information is not intended to replace advice given to you by your health care provider. Make sure you discuss any questions you have with your health care provider. Document Released: 07/24/2013 Document Revised: 03/27/2019 Document Reviewed: 03/27/2019 Else5 examples Patient Education ? 2019 [employer] [facility] Urology Office/Clinic Noteon 09-21-2022 Urology Office/Clinic Note Chief Complaint F/U with CONNOR HPI Staff Aislinn is a 62 y/o female here for a f/u to [facility] done 09/15/2021. CONNOR showed Renal Lobation Versus mass within inferior pole of right kidney. Chronic large complex cyst arising from left kidney. Dysuria: _yes Incomplete bladder emptying: _denies Hematuria: _denies Frequency: _every hour Urgency: _sometimes Nocturia: _1-2x Stream: _stop and go Leaking: _yes Post void dripping: _denies Wearing pads/ Depends: _yes changed 1x Urge incontinence: _yes Stress incontinence: _yes Incontinence without Sensory Awareness: _denies Abdominal pain: _denies Flank pain: _denies Sexual complaints: _ History of Present Illness Tests reviewed: reviewed UA, CONNOR. I have reviewed the previous health record information and history for this patient from GIANNI Sanchez. I have reviewed and verified the staff HPI to be accurate for this encounter. There have been no associated fever, chills, flank pain, or blood in the urine. Denies any urinary infections since last encounter. Review of Systems PHQ Score Initial Depression Screen Score: 0 ROS - Provider Constitutional: denies weight loss, denies hot flashes. Eyes: denies eye problems. Gastrointestinal: denies nausea, denies vomiting. Cardiovascular: denies chest pain or angina. Integumentary: no dryness Musculoskeletal: denies musculoskeletal symptoms. ENMT: denies otolaryngeal symptoms. Respiratory: no shortness of breath. Heme/Lymph: denies easy bleeding tendency, denies easy bruising tendency. Psychiatric: no confusion, no anxiety. Genitourinary: See HPI. Physical Exam Vitals & Measurements HR: 74(Peripheral) BP: 103/67 HT: 60 in HT: 153 cm WT: 52.5 kg WT: 115.5 lb BMI: 22.43 General Appearance: alert , no acute distress, well nourished, well developed female. LLE immobilized s/p toe amputation. In wheelchair Genitourinary: bladder nonpalpable, left mild flank pain, LUQ palpable mass minimally ttp Assessment/Plan Pt currently in cast due to toe amputation and several broken toes (sepsis, diabetes) in July. 1. Renal cyst (N28.1: Cyst of kidney, acquired) -MRI w/won con done 01/20/21 shows Bosniak category 2F cyst within the lower pole of the left kidney measuring 7.8 x 7 x 7.2 cm. This is stable as far as 2F staging, but shows increase in size (previously 10/2014 - 7.2 x 5.8 x 5.4 cm and 03/2014 - 6.4 x 5.1 x 4.6 cm) -07/06/22: Crea 2.01. eGFR 25. (During sepis/osteomyelitis) -08/03/22: Crea 1.36 eGFR 36. -CONNOR done 09/15/22 shows 1.3 cm mass versus area of lobulation involving inferior pole lateral wall of right kidney. Chronic large complex cyst arising from left kidney measuring 8.7 x 8.2 x 7.1 cm. This has increased slightly in size since 2016, but still favors benign etiology. -Pt reports increasing pain L flank over the past 6-12 mos. This is now almost constant. Definitely every day. Ranges from moderate to severe. Interferes with ADLs. Would like to discuss intervention options as she recalls DLS spoke with her about removal and drainage when first diagnosed. Pt feels swollen at LLQ of abdomen. PE: no painful but uncomfortable on left, no pain or discomfort on right. Explained findings from CONNOR, has some septations but also fluid filled and new finding, possible cyst, low possibility of malignancy, prior 2F. Has increased in size. Discussed risks and benefits of surgical intervention options including draining cyst or robotic laparoscopic cyst decortication. Discussed possible cancerous potential. Elevated risk of periop complications given uncontrolled DM and renal insufficiency. Will need further evaluate with CT with contrast. Will need renal optimization and IV hydration prior due to pt's reduced kidney fxn. Hx of sepsis multiple times, pt was told at that time her kidneys fxn was abnormal. Has never seen a pilot boat captain. Recommends referral to nephrology due to pt's reduced kidney function. Pt reports she is anemic. -Will need osteomyelitis completely resolved prior to any intervention -CTU with IV hydration in 2 mos after nephrology eval and optimization -refer to nephrology -control BP, diabetes, kidney fxn - encourage PCP f/u after septic episode and DM control and anemia Follow up in 3 mths. Ordered: CT Uro[facility] [place] External Ambulatory Referral 2. Mixed incontinence (N39.46: Mixed incontinence) Pt started Oxybutynin 5 mg ER QD at prior OV. No sample provided for UA today. ICIQ-SF none today (17). Hx of hysterectomy for fibroid tumors and heavy bleeding many years ago. BURKE - Leaks with sneezing, coughing. UUI - on the way to the restroom. Occasional full incontinence. Wears a pad, changes 1x/day, decreased from 3x/day. Urge > stress. Feels the Oxybutynin has improved sxs. Recommends stool softener, fiber supplements, and increased water if having SEs from med. Pt reports large chunks of hair loss, rare SE but possible. Will d/c Oxybutynin and start Myrbetriq 50 mg QD. SEs discussed. Rx sent to (more content not included)... Normal [facility] Comment on above: Result Comment: Elec tronically Signed By: Vern TAVERAS, Lisa Montiel\.br\Date and Time Signed: 09/21/22 10:10 EST\.br\Electronically Co-Signed By: Dina Jolly\.br\Date and Time Co-Signed: 09/21/22 09:57 EST XR FOOT LT MIN 3 VIEWSon XR FOOT LT MIN 3 VIEWS Normal [facility] RAD - Ultrasound Reporton RAD - Ultrasound Report [id number]#1.00C D:127 Normal [facility] US KIDNEYSon 09-15-2022 US KIDNEYS Normal [facility] Historical Records Officeon 09-14-2022 Historical Records Office [id number] CD:127 Normal [facility] Physician Referralon 023 Physician Referral [id number] CD:127 Normal [facility] Screenson 09-14-2022 Screens [id number] D:127 Normal [facility] Ambulatory Visit Summaryon 0 09-13-2022 Ambulatory Visit Summary AISLINN WHEELER :1960 Visit Date:09/13/2022 Ambulatory Visit Instructions Your Diagnosis Mixed incontinence Renal cyst Feeling of incomplete bladder emptying Glucosuria Tests Performed Urnls Dip Stick Auto w/o Microscopy POC [id number] US Renal -- Results Pending -- Please visit your patient portal for your results or contact your primary care physician. Your Care Team Attending Physician - HEIDY ARNOLD PA-C Primary Care Physician - LATOSHA OLMSTEAD CNP Referring Physician - LATOSHA OLMSTEAD CNP This Is Your Medications List oxybutynin (oxybutynin 5 mg ER Tab) Contact prescribing physician if questions or concerns acetaminophen-hydrocodo ne (acetaminophen-hydrocod one 325 mg-7.5 mg oral tablet) amlodipine (amLODIPine 5 mg Tab) folic acid (folic acid 1 mg Tab) potassium chloride (potassium chloride 10 mEq Cap-ER) pregabalin (pregabalin 150 mg Cap) Procedures Performed Ankle, Arm, Arthroscopy of knee, Cataract, Gallbladder, Hysterectomy, Neck, Shoulder. Discharge Vitals Height 153 cm Height 60 in Weight 52.5 kg Weight 115.5 lb BMI 22.43 What to do next Scheduled Follow-Up Appointments Monday 3:00 PM EDT With: HEIDY ARNOLD PA-C Where: [facility] Haroldo Normal [facility] Patient Educationon 09-13-19 23 Patient Education Obstetrics and Gynecology Overactive Bladder, Adult Overactive bladder refers to a condition in which a person has a sudden need to pass urine. The person may leak urine if he or she cannot get to the bathroom fast enough (urinary incontinence). A person with this condition may also wake up several times in the night to go to the bathroom. Overactive bladder is associated with poor nerve signals between your bladder and your brain. Your bladder may get the signal to empty before it is full. You may also have very sensitive muscles that make your bladder squeeze too soon. These symptoms might interfere with daily work or social activities. What are the causes? This condition may be associated with or caused by: ? Urinary tract infection. ? Infection of nearby tissues, such as the prostate. ? Prostate enlargement. ? Surgery on the uterus or urethra. ? Bladder stones, inflammation, or tumors. ? Drinking too much caffeine or alcohol. ? Certain medicines, especially medicines that get rid of extra fluid in the body (diuretics). ? Muscle or nerve weakness, especially from: ? A spinal cord injury. ? Stroke. ? Multiple sclerosis. ? Parkinson's disease. ? Diabetes. ? Constipation. What increases the risk? You may be at greater risk for overactive bladder if you: ? Are an older adult. ? Smoke. ? Are going through menopause. ? Have prostate problems. ? Have a neurological disease, such as stroke, dementia, Parkinson's disease, or multiple sclerosis (MS). ? Eat or drink things that irritate the bladder. These include alcohol, spicy food, and caffeine. ? Are overweight or obese. What are the signs or symptoms? Symptoms of this condition include: ? Sudden, strong urge to urinate. ? Leaking urine. ? Urinating 8 or more times a day. ? Waking up to urinate 2 or more times a night. How is this diagnosed? Your health care provider may suspect overactive bladder based on your symptoms. He or she will diagnose this condition by: ? A physical exam and medical history. ? Blood or urine tests. You might need bladder or urine tests to help determine what is causing your overactive bladder. You might also need to see a health care provider who specializes in urinary tract problems (urologist). How is this treated? Treatment for overactive bladder depends on the cause of your condition and whether it is mild or severe. You can also make lifestyle changes at home. Options include: ? Bladder training. This may include: ? Learning to control the urge to urinate by following a schedule that directs you to urinate at regular intervals (timed voiding). ? Doing Kegel exercises to strengthen your pelvic floor muscles, which support your bladder. Toning these muscles can help you control urination, even if your bladder muscles are overactive. ? Special devices. This may include: ? Biofeedback, which uses sensors to help you become aware of your body's signals. ? Electrical stimulation, which uses electrodes placed inside the body (implanted) or outside the body. These electrodes send gentle pulses of electricity to strengthen the nerves or muscles that control the bladder. ? Women may use a plastic device that fits into the vagina and supports the bladder (pessary). ? Medicines. ? Antibiotics to treat bladder infection. ? Antispasmodics to stop the bladder from releasing urine at the wrong time. ? Tricyclic antidepressants to relax bladder muscles. ? Injections of botulinum toxin type A directly into the bladder tissue to relax bladder muscles. ? Lifestyle changes. This may include: ? Weight loss. Talk to your health care provider about weight loss methods that would work best for you. ? Diet changes. This may include reducing how much alcohol and caffeine you consume, or drinking fluids at different times of the day. ? Not smoking. Do not use any products that contain nicotine or tobacco, such as cigarettes and e-cigarettes. If you need help quitting, ask your health care provider. ? Surgery. ? A device may be implanted to help manage the nerve signals that control urination. ? An electrode may be implanted to stimulate electrical signals in the bladder. ? A procedure may be done to change the shape of the bladder. This is done only in very severe cases. Follow these instructions at home: Lifestyle ? Make any diet or lifestyle changes that are recommended by your health care provider. These may include: ? Drinking less fluid or drinking fluids at different times of the day. ? Cutting down on caffeine or alcohol. ? Doing Kegel exercises. ? Losing weight if needed. ? Eating a healthy and balanced diet to prevent constipation. This may include: ? Eating foods that are high in fiber, such as fresh fruits and vegetables, whole grains, and beans. ? Limiting foods that are high in fat and processed sugars, such as fried and sweet foods. General instructions ? Take ove (more content not included)... Normal [facility] XR FOOT LT MIN 3 VIEWSon XR FOOT LT MIN 3 VIEWS Normal [facility] XR FOOT LT MIN 3 VIEWSon XR FOOT LT MIN 3 VIEWS Normal [facility] XR FOOT LT MIN 3 VIEWSon XR FOOT LT MIN 3 VIEWS Normal [facility] CBC AUTO DIFFon 08-03-2022 BASO # 0.0 103/ul Normal 0.0-0.1 [facility] Comment on above: Performed By: #### C BC ####[facility] [address] [place] [id number]. Ricardo Rocha Basophils/100 WBC (Bld) 0.5 % Normal 0.2-2.0 [facility] Comment on above: Performed By: #### C BC ####[facility] [address] [place] [id number]. Ricardo Rocha EO # 0.1 103/ul Normal 0.0-0.7 [facility] Comment on above: Performed By: #### C BC ####[facility] [address] [place], [place] [address]TaIrina Rocha Eosinophils/100 WBC (Bld) 1.2 % Normal 0.9-7.0 [facility] Comment on above: Performed By: #### C BC ####[facility] [address] [place] [id number] Rocha Erythrocyte distribution width (RBC) [Ratio] 15.0 % Normal 11.0-15.0 [facility] Comment on above: Performed By: #### C BC ####[facility] [address] [place] [address]Dr. Ricardo Rocha Hematocrit (Bld) [Volume fraction] 29.5 % Critically low 36.0-48.0 [facility] Comment on above: Performed By: #### C BC ####[facility] [address] [place] [address]Dr. Ricardo Rocha Hemoglobin (Bld) [Mass/Vol] 9.3 g/dL Critically low 12.0-16.0 [facility] Comment on above: Performed By: #### C BC ####[facility] [address] [place], [place] [address]DrIrina Rocha IG # 0.04 10e3/ul Critically high 0.00-0.03 [facility] Comment on above: Performed By: #### C BC ####[facility] [address] [place], [place] [address]Dr. Ricardo Rocha IG % 0.5 % Normal 0.0-0.5 [facility] Comment on above: Performed By: #### C BC ####[facility] [address] [place], [place] [address]DrIrina Rocha LYMPH # 1.4 103/ul Normal 1.2-3.8 [facility] Comment on above: Performed By: #### C BC ####[facility] [address] [place], [place] [address]DrIrina Rocha Lymphocytes/100 WBC (Bld) 17.2 % Critically low 20.5-60.0 [facility] Comment on above: Performed By: #### C BC ####[facility] [address] [place], [place] [address]DrIrina Rocha MANUAL DIFF REQ NO Normal [facility] Comment on above: Performed By: #### C BC ####[facility] [address] [place] [address]Dr. Ricardo Rocha MCH (RBC) [Entitic mass] 25.2 pg Critically low 26.7-34.0 [facility] Comment on above: Performed By: #### C BC ####[facility] [address] [place] [address]Dr. Ricardo Rocha MCHC (RBC) [Mass/Vol] 31.5 g/dL Normal 29.9-35.2 [facility] Comment on above: Performed By: #### C BC ####[facility] [address] [place] [address]Dr. Ricardo Rocha MCV (RBC) [Entitic vol] 79.9 fL Critically low 81.0-99.0 [facility] Comment on above: Performed By: #### C BC ####[facility] [address] [place], [place] [address]DrIrina Rocha MONO # 0.6 103/ul Normal 0.3-0.8 [facility] Comment on above: Performed By: #### C BC ####[facility] [address] [place], [place] [address]Dr. Ricardo Rocha Monocytes/100 WBC (Bld) 7.6 % Normal 1.7-12.0 [facility] Comment on above: Performed By: #### C BC ####[facility] [address] [place], [place] [address]Dr. Ricardo Rocha NEUT # 5.9 103/ul Normal 1.4-6.5 [facility] Comment on above: Performed By: #### C BC ####[facility] [address] [place], [place] [address]Dr. Ricardo Rocha Neutrophils/100 WBC (Bld) 73.0 % Normal 43.0-75.0 [facility] Comment on above: Performed By: #### C BC ####[facility] [address] [place], [place] [address]DrIrina Rocha Platelet mean volume (Bld) [Entitic vol] 11.4 fL Normal 9.5-13.5 [facility] Comment on above: Performed By: #### C BC ####[facility] I[address] [place], [place] [address]Dr. Ricardo Rocha PLT 253 103/ul Normal 150-450 [facility] Comment on above: Performed By: #### C BC ####[facility] [address] [place] [id number]. Ricardo Rocha RBC 3.69 106/ul Critically low 4.20-5.40 [facility] Comment on above: Performed By: #### C BC ####[facility] [address] [place] [id number]. Ricardo Rocha WBC 8.0 103/ul Normal 4.0-11.0 [facility] Comment on above: Performed By: #### C BC ####[facility] [address] [place] [id number]. Ricardo Rocha CRPon 08-03-2022 CRP 3.1 mg/dL Critically high <=1.0 [facility] Comment on above: Performed By: #### C RP, BMP, URIC ####[facility] [address] [place], [place] [address]Dr. Ricardo Rocha CULTURE BLOODon 08-03-2022 Microscopic examination of blood, culture Culture Observations: NO GROWTH AT 5 DAYS. Normal [facility] Comment on above: Performed By: #### B LDCX2 ####[facility] [address] [place], [place] [id number]. Ricardo Rocha Microscopic examination of blood, culture Culture Observations: NO GROWTH AT 5 DAYS. Normal [facility] Comment on above: Performed By: #### B LDCX1 ####[facility] [address] [place], [place] [id number]. Ricardo Rocha ER URINE PROFILEon 2 Bilirubin Ql (U) Negative Normal NEGATIVE [facility] Comment on above: Performed By: #### E RUR ####[facility] [address] [place], [place] [address]Dr. Ricardo Rocha Clarity (U) CLEAR Normal CLEAR [facility] Comment on above: Performed By: #### E RUR ####[facility] [address] [place], [place] [address]Dr. Ricardo Rocha Color (U) LT. YELLOW Normal YELLOW [facility] Comment on above: Performed By: #### E RUR ####[facility] [address] [place] [address]Dr. Ricardo SWIFT A micrscopic examination will be performed if indicated. Normal [facility] Comment on above: Performed By: #### E RUR ####[facility] [address] [place] [address]Dr. Ricardo Rocha Glucose Ql (U) 100 mg/dl Abnormal NEGATIVE [facility] Comment on above: Performed By: #### E RUR ####[facility] [address] [place], [place] [address]Dr. Ricardo Rocha Hemoglobin Ql (U) Negative Normal NEGATIVE [facility] Comment on above: Performed By: #### E RUR ####[facility] [address] [place], [place] [address]Dr. Ricardo Rocha Ketones Ql (U) Negative Normal NEGATIVE [facility] Comment on above: Performed By: #### E RUR ####[facility] [address] [place], [place] [address]Dr. Ricardo Rocha LEUKOCYTES Negative Normal NEGATIVE [facility] Comment on above: Performed By: #### E RUR ####[facility] [address] [place], [place] [address]Dr. Ricardo Rocha Nitrite Ql (U) Negative Normal NEGATIVE [facility] Comment on above: Performed By: #### E RUR ####[facility] [address] [place], [place] [address]Dr. Ricardo Rocha pH (U) 6.0 [pH] Normal 5-9 [facility] Comment on above: Performed By: #### E RUR ####[facility] [address] [place], [place] [address]Dr. Ricardo Rocha SPEC GRAVITY 1.010 Normal 1.005-<=1.02 5 [facility] Comment on above: Performed By: #### E RUR ####[facility] [address] [place], [place] [address]Dr. Ricardo Rocha UA PROTEIN Negative Normal NEGATIVE/ TRACE [facility] Comment on above: Performed By: #### E RUR ####[facility] [address] [place] [address]Dr. Ricardo Rocha UR MICRO IND NOT INDICATED Normal [facility] Comment on above: Performed By: #### E RUR ####[facility] [address] [place] [address]Dr. Ricardo Rocha Urobilinogen Qn (U) 0.2 {Madeleine'U}/dL Normal 0.2 - 1. 0 [facility] Comment on above: Performed By: #### E RUR ####[facility] [address] [place], [place] [address]Dr. Ricardo Rocha LACTATE/LACTIC ACIDon 2021 Lactate [Moles/Vol] 0.5 mmol/L Normal 0.4-1.9 [facility] Comment on above: Performed By: #### L ACT ####[facility] [address] [place], [place] [address]Dr. Ricardo Rocha PROF CHEM 8 (BAS METB)on Anion gap [Moles/Vol] 12.9 mmol/L Normal [facility] Comment on above: Performed By: #### C RP, BMP, URIC ####[facility] [address] [place] [address]Dr. Ricardo Rocha Calcium [Mass/Vol] 9.0 mg/dL Normal 8.5-10.1 [facility] Comment on above: Performed By: #### C RP, BMP, URIC ####[facility] [address] [place] [address]Dr. Ricardo Rocha Chloride [Moles/Vol] 102 mmol/L Normal 98-107 [facility] Comment on above: Performed By: #### C RP, BMP, URIC ####[facility] [address] [place] [address]Dr. Ricardo Rocha CO2 [Moles/Vol] 23.9 mmol/L Normal 21.0-32.0 [facility] Comment on above: Performed By: #### C RP, BMP, URIC ####[facility] [address] [place] [address]Dr. Ricardo Rocha Creatinine [Mass/Vol] 1.36 mg/dL Critically high 0.55-1.02 [facility] Comment on above: Performed By: #### C RP, BMP, URIC ####[facility] [address] [place] [address]Dr. Ricardo Rocha EGFR-AF [place]THER[place] 47 mL/min/1.73m2 Critically low >=60 [facility] Comment on above: Performed By: #### C RP, BMP, URIC ####[facility] [address] [place] [address]Dr. Ricardo Rocha EGFR-NON AF [place] 39 mL/min/1.73m2 Critically low >=60 [facility] Comment on above: Performed By: #### C RP, BMP, URIC ####[facility] [address] [place] [address]Dr. Ricardo Rocha Glucose [Mass/Vol] 125 mg/dL Critically high 74-106 [facility] Comment on above: Performed By: #### C RP, BMP, URIC ####[facility] [address] [place], [place] [address]Dr. Ricardo Rocha Potassium [Moles/Vol] 4.8 mmol/L Normal 3.5-5.1 [facility] Comment on above: Performed By: #### C RP, BMP, URIC ####[facility] [address] [place] [address]Dr. Ricardo Rocha Sodium [Moles/Vol] 134 mmol/L Critically low 136-145 [facility] Comment on above: Performed By: #### C RP, BMP, URIC ####[facility] [address] [place], [place] [address]Dr. Ricardo Rocha Urea nitrogen [Mass/Vol] 22.0 mg/dL Critically high 7.0-18.0 [facility] Comment on above: Performed By: #### C RP, BMP, URIC ####[facility] [address] [place] [address]Dr. Ricardo Rocha Urea nitrogen/Creatinine [Mass ratio] 16.2 mg/mg Normal [facility] Comment on above: Performed By: #### C RP, BMP, URIC ####[facility] [address] [place] [address]Dr. Ricardo Aj SED RATE WESTERGRENon 2021 SED RATE 95 mm/hr Critically high <=30 [facility] Comment on above: Performed By: #### S EDR ####[facility] [address] [place] [address]Dr. Ricardo Aj URIC ACID SERUMon 08-03-2022 Urate [Mass/Vol] 4.7 mg/dL Normal 2.6-6.0 [facility] Comment on above: Performed By: #### C RP, BMP, URIC ####[facility] [address] [place] [address]Dr. Ricardo Rocha XR FOOT LT MIN 3 VIEWSon XR FOOT LT MIN 3 VIEWS Normal [facility] [facility] PROF CHEM 8 (BAS METB)on Anion gap [Moles/Vol] 13.8 mmol/L Normal [facility] Comment on above: Performed By: #### B MP ####[facility] [address] [place], [place] [address]Dr. Ricardo Aj Calcium [Mass/Vol] 8.9 mg/dL Normal 8.5-10.1 [facility] Comment on above: Performed By: #### B MP ####[facility] Bpagslrydq[address] [place], [place] [address]Dr. Ricardo Rocha Chloride [Moles/Vol] 101 mmol/L Normal 98-107 [facility] Comment on above: Performed By: #### B MP ####[facility] [address] [place] [address]Dr. Ricardo Rocha CO2 [Moles/Vol] 22.8 mmol/L Normal 21.0-32.0 The [facility] Comment on above: Performed By: #### B MP ####[facility] [address] [place] [address]Dr. Ricardo Rocha Creatinine [Mass/Vol] 1.43 mg/dL Critically high 0.55-1.02 [facility] Comment on above: Performed By: #### B MP ####[facility] F[address]yt[address]ky[address] [place] [address]Dr. Ricardo Rocha EGFR-AF [place] 45 mL/min/1.73m2 Critically low >=60 [facility] Comment on above: Performed By: #### B MP ####[facility] Tdtihwnabd[address] [place] [address]Dr. Ricardo Rocha EGFR-NON AF [place] 37 mL/min/1.73m2 Critically low >=60 [facility] Comment on above: Performed By: #### B MP ####[facility] Jndahhotjw[address] [place], [place] [address]Dr. Ricardo Rocha Glucose [Mass/Vol] 279 mg/dL Critically high 74-106 T [facility] Comment on above: Performed By: #### B MP ####[facility] Mqrcabrbly[address] [place], [place] [address]Dr. Ricardo Rocha Potassium [Moles/Vol] 4.6 mmol/L Normal 3.5-5.1 [facility] Comment on above: Performed By: #### B MP ####[facility] Iacdiuvmcm[address] [place], [place] [address]Dr. Ricardo Rocha Sodium [Moles/Vol] 133 mmol/L Critically low 136-145 Th [facility] Comment on above: Performed By: #### B MP ####[facility] Ymratpcjux[address] [place], [place] [address]Dr. Ricardo Rocha Urea nitrogen [Mass/Vol] 24.0 mg/dL Critically high 7.0-18.0 [facility] Comment on above: Performed By: #### B MP ####[facility] Vvrrzuypxg[address] [place], [place] [address]Dr. Ricardo Rocha Urea nitrogen/Creatinine [Mass ratio] 16.8 mg/mg Normal [facility] Comment on above: Performed By: #### B MP ####[facility] Dvtegofude[address] [place], [place] [address]Dr. Ricardo Rocha ACID FAST SMEAR AND CXon Acid Fast Culture Negative Normal [facility] Comment on above: Result Comment: No a amilcar fast bacilli isolated after 6 weeks. Performed By: #### A FB ####[facility] [address] [place] [id number]. Ricardo Rocha Acid Fast Smear Negative Normal [facility] Comment on above: Performed By: #### A FB ####[facility] Dogrsriwbx80[address] [place] [id number]. Ricardo Rocha [employer] Specimen Processing Direct Inoculation [facility] Comment on above: Performed By: #### A FB ####[facility] Hqtzznnhbj[address] [place], [place] [address]Dr. Ricardo Rocha [employer] Specimen Processing Tissue Grinding [facility] Comment on above: Performed By: #### A FB ####[facility] Fbjdmoutwq1385[address] [place], [place] [address]Dr. Ricardo Rocha FUNGAL CULTUREon 07-11-2022 Fungus (Mycology) Culture Final report [facility] Comment on above: Performed By: #### C XFUN ####[facility] Jytwbopvdw[address] [place], [place] [address]Dr. Ricardo Rocha Fungus Stain Final report Normal [facility] Comment on above: Performed By: #### C XFUN ####[facility] Kemlmnlcuj350[address] [place] [id number]. Ricardo Rocha Result 1 Comment Normal [facility] Comment on above: Result Comment: AAYUSH/ Calcofluor preparation: no fungus observed. Performed By: #### C XFUN ####[facility] Dpvfieljuq[address] [place], [place] [id number]. Ricardo Rocha Result Comment: No y east or mold isolated after 4 weeks. PROF CHEM 8 (BAS METB)on Anion gap [Moles/Vol] 15.1 mmol/L [facility] Comment on above: Performed By: #### B MP ####[facility] Jadtxtgboz[address] [place], [place] [id number]. Ricardo Rocha Calcium [Mass/Vol] 9.0 mg/dL Normal 8.5-10.1 [facility] Comment on above: Performed By: #### B MP ####[facility] X[address]adh[address]pl[address] [place] [address]Dr. Nanomarcial Aj Chloride [Moles/Vol] 101 mmol/L Normal 98-107 [facility] Comment on above: Performed By: #### B MP ####[facility] Npgijupdwi4356 [place] [address]Dr. Ricardo Rocha CO2 [Moles/Vol] 18.5 mmol/L Critically low 21.0-32.0 [facility] Comment on above: Performed By: #### B MP ####[facility] Gutxenjjpv189[address] [place], [place] [address]Dr. Ricardo Rocha Creatinine [Mass/Vol] 2.05 mg/dL Critically high 0.55-1.02 [facility] Comment on above: Performed By: #### B MP ####[facility] Mlecqvasmi[address] [place], [place] [address]Dr. Ricardo Rocha EGFR-AF [place] 30 mL/min/1.73m2 Critically low >=60 [facility] Comment on above: Performed By: #### B MP ####[facility] Dyqayvdgui6901[address] [place], [place] [address]Dr. Ricardo Rocha EGFR-NON AF [place] 24 mL/min/1.73m2 Critically low >=60 [facility] Comment on above: Performed By: #### B MP ####[facility] Epumvudmcu[address] [place] [address]Dr. Ricardo Rocha Glucose [Mass/Vol] 134 mg/dL Critically high 74-106 [facility] Comment on above: Performed By: #### B MP ####[facility] Uowioomaco[address] [place], [place] [address]Dr. Ricardo Rocha Potassium [Moles/Vol] 5.6 mmol/L Critically high 3.5-5.1 [facility] Comment on above: Performed By: #### B MP ####[facility] Mkawlugezj[address] [place], [place] [address]Dr. Ricardo Rocha Sodium [Moles/Vol] 129 mmol/L Critically low 136-145 Th e [facility] Comment on above: Performed By: #### B MP ####[facility] Xrtzoqwshz[address] [place], [place] [address]Dr. Ricardo Rocha Urea nitrogen [Mass/Vol] 57.0 mg/dL Critically high 7.0-18.0 [facility] Comment on above: Performed By: #### B MP ####[facility] Kcghyvbxbe01[address] [place], [place] [address]Dr. Ricardo Rocha Urea nitrogen/Creatinine [Mass ratio] 27.8 mg/mg Normal [facility] Comment on above: Performed By: #### B MP ####[facility] Ozisdzamiq[address]74[address] [place], [place] [address]Dr. Ricardo Rocha CBC AUTO DIFFon 07-06-2022 BASO # 0.0 103/ul Normal 0.0-0.1 [facility] Comment on above: Performed By: #### C BC ####[facility] Ouyhctczea[address] [place], [place] [address]Dr. Ricardo Rocha Basophils/100 WBC (Bld) 0.6 % Normal 0.2-2.0 [facility] Comment on above: Performed By: #### C BC ####[facility] Xgicosifrd[address] [place], [place] [address]Dr. Ricardo Rocha EO # 0.1 103/ul Normal 0.0-0.7 [facility] Comment on above: Performed By: #### C BC ####[facility] Klysmrapqn6167[address] [place], [place] [address]Dr. Ricardo Rocha Eosinophils/100 WBC (Bld) 1.7 % Normal 0.9-7.0 [facility] Comment on above: Performed By: #### C BC ####[facility] Vupahtzbws[address] [place], [place] [address]Dr. Ricardo Rocha Erythrocyte distribution width (RBC) [Ratio] 15.2 % Critically high 11.0-15.0 [facility] Comment on above: Performed By: #### C BC ####[facility] Ojzsdxieps[address] [place], [place] [address]Dr. Ricardo Rocha Hematocrit (Bld) [Volume fraction] 34.6 % Critically low 36.0-48.0 [facility] Comment on above: Performed By: #### C BC ####[facility] Prq[address]ick[address] [place] [address]Dr. Ricardo Rocha Hemoglobin (Bld) [Mass/Vol] 10.5 g/dL Critically low 12.0-16.0 [facility] Comment on above: Performed By: #### C BC ####[facility] Xkerswxdol[address] [place], [place] [address]Dr. Ricardo Rocha IG # 0.01 10e3/ul Normal 0.00-0.03 [facility] Comment on above: Performed By: #### C BC ####[facility] Rurppizkip3947[address] [place], [place] [address]Dr. Ricardo Rocha IG % 0.2 % Normal 0.0-0.5 [facility] Comment on above: Performed By: #### C BC ####[facility] Frfmhyzewy[address] [place], [place] [address]Dr. Ricardo Rocha LYMPH # 2.4 103/ul Normal 1.2-3.8 [facility] Comment on above: Performed By: #### C BC ####[facility] Gvpcuntuuf4[address] [place], [place] [address]Dr. Ricardo Rocha Lymphocytes/100 WBC (Bld) 44.4 % Normal 20.5-60.0 [facility] Comment on above: Performed By: #### C BC ####[facility] Mnaxxsrjtw[address] [place], [place] [address]DrIrina Rocha MANUAL DIFF REQ NO Normal The [facility] Comment on above: Performed By: #### C BC ####[facility] Rtqueczhjv[address] [place], [place] [address]Dr. Ricardo Rocha MCH (RBC) [Entitic mass] 25.0 pg Critically low 26.7-34.0 [facility] Comment on above: Performed By: #### C BC ####[facility] Ohdjdtupag6[address] [place], [place] [address]Dr. Ricardo Rocha MCHC (RBC) [Mass/Vol] 30.3 g/dL Normal 29.9-35.2 [facility] Comment on above: Performed By: #### C BC ####[facility] Vydtbcirme[address] [place], [place] [address]DrIrina Ricardo Aj MCV (RBC) [Entitic vol] 82.4 fL Normal 81.0-99.0 [facility] Comment on above: Performed By: #### C BC ####[facility] Gxogueflck[address] [place], [place] [address]DrIrina Rocha MONO # 0.3 103/ul Normal 0.3-0.8 [facility] Comment on above: Performed By: #### C BC ####[facility] Qmjnjsglbu[address] [place], [place] [address]DrIrina Rocha Monocytes/100 WBC (Bld) 5.1 % Normal 1.7-12.0 [facility] Comment on above: Performed By: #### C BC ####[facility] Chghkdczub8[address] [place], [place] [address]DrIrina Rocha NEUT # 2.5 103/ul Normal 1.4-6.5 [facility] Comment on above: Performed By: #### C BC ####[facility] Adcylatwjw7[address] [place], [place] [address]DrIrina Rocha Neutrophils/100 WBC (Bld) 48.0 % Normal 43.0-75.0 [facility] Comment on above: Performed By: #### C BC ####[facility] Scjynfhatm[address] [place], [place] [address]DrIrina Rocha Platelet mean volume (Bld) [Entitic vol] 10.7 fL Normal 9.5-13.5 [facility] Comment on above: Performed By: #### C BC ####[facility] Lbhvzfexxf[address] [place], [place] [address]DrIrina Rocha PLT 261 103/ul Normal 150-450 [facility] Comment on above: Performed By: #### C BC ####[facility] Nzlgcgpcym[address] [place], [place] [address]Dr. Ricardo Rocha RBC 4.20 106/ul Normal 4.20-5.40 [facility] Comment on above: Performed By: #### C BC ####[facility] I[address]ctvx[address] [place] [id number]. Ricardo Rocha WBC 5.3 103/ul Normal 4.0-11.0 [facility] Comment on above: Performed By: #### C BC ####[facility] Y[address]ouvb[address] [place] [id number]. Ricardo Rocha GLYCOHEMOGLOBIN A1Con 2021 ADA RECOMMENDATION SEE BELOW Normal [facility] Comment on above: Result Comment: ADA RECOMMENDED LIMIT 4.0 - 6.0 ADA THERAPEUTIC TARGET < 7.0 ACTION SUGGESTED > 7.0 Performed By: #### A 1C ####[facility] Skskollbmc[address] [place], [place] [address]Dr. Ricardo Rocha Glucose [Mass/Vol] 289 mg/dL Normal [facility] Comment on above: Performed By: #### A 1C ####[facility] Mkqljkspkq[address] [place], [place] [address]Dr. Ricardo Rocha HbA1c (Bld) [Mass fraction] 11.7 % Critically high 4.5-6.2 [facility] Comment on above: Performed By: #### A 1C ####[facility] Biwspeaaxa[address] [place], [place] [address]Dr. Ricardo Rocha LIPID PROFILEon 07-06-2022 CHOL-HDL RATIO NORM SEE BELOW Normal [facility] Comment on above: Result Comment: 3.3 - 4.4 LOW RISK 4.4 - 7.1 AVERAGE RISK 7.1 - 11.0 MODERATE RISK >11.0 HIGH RISK Performed By: #### T SH, CMP, LIPID ####[facility] [address] [place] [address]Dr. Ricardo Rocha Cholesterol [Mass/Vol] 284 mg/dL Critically high <=200 [facility] Comment on above: Performed By: #### T SH, CMP, LIPID ####[facility] X[address]rhkelqq49[address] [place] [id number]. Ricardo Rocha Cholesterol in HDL [Mass/Vol] 40 mg/dL Normal 40-60 [facility] Comment on above: Performed By: #### T SH, CMP, LIPID ####[facility] Phgbpxjxle10[address] [place] [id number]. Ricardo Rocha Cholesterol in LDL [Mass/Vol] 167.8 mg/dL Normal [facility] Comment on above: Performed By: #### T SH, CMP, LIPID ####[facility] L[address]rujeb18[address] [place] [phone]. Ricardo Rocha Cholesterol.total/Ch olesterol in HDL [Mass ratio] 7.1 {ratio} Normal [facility] Comment on above: Performed By: #### T SH, CMP, LIPID ####[facility] [address]qowus[address] [place] [address]Dr. Ricardo Rocha HDL NORMAL > or = 60 mg/dl - LO W CARDIOVASCULAR RISK <40 mg/dl - HIGH CARDIOVASCULAR RISK Normal [facility] Comment on above: Performed By: #### T SH, CMP, LIPID ####[facility] Hfgalqjdqf7[address] [place] [phone]. Ricardo Rocha LDL CALC NORMAL SEE BELOW Normal The [facility] Comment on above: Result Comment: <100 mg/dl OPTIMAL 100 - 129 mg/dl NEAR OR ABOVE OPTIMAL 130 - 159 mg/dl BORDERLINE HIGH 160 - 189 mg/dl HIGH >190 mg/dl VERY HIGH Performed By: #### T SH, CMP, LIPID ####[facility] Sqpjpvmhpn3[address] [place] [phone]. Ricardo Rocha Triglyceride [Mass/Vol] 381 mg/dL Critically high <=150 [facility] Comment on above: Performed By: #### T SH, CMP, LIPID ####[facility] Muav[address]afsnk[address] [place] [phone]. Ricardo Rocha VLDL CALC 76.2 mg/dL Normal [facility] Comment on above: Performed By: #### T SH, CMP, LIPID ####[facility] Kdydaficqn36[address] [place] [phone]. Ricardo Rocha MICROALBUMIN, RAND URon 11-1 mALB <1.3 Normal <=30.0 The [facility] Comment on above: Performed By: #### M ALBR ####[facility] [address] [place] [address]Dr. Ricardo Rocha PROF 14(COMP METB)on 022 Albumin [Mass/Vol] 3.3 g/dL Critically low 3.4-5.0 Th e [facility] Comment on above: Performed By: #### T SH, CMP, LIPID ####[facility] Nqqpjveost[address] [place] [address]Dr. Ricardo Rocha Albumin/Globulin [Mass ratio] 0.5 {ratio} Normal [facility] Comment on above: Performed By: #### T SH, CMP, LIPID ####[facility] Cihbydzjmw[address] [place] [address]Dr. Ricardo Rocha ALP [Catalytic activity/Vol] 129 U/L Critically high 46-116 [facility] Comment on above: Performed By: #### T ANTONIA, CMP, LIPID ####[facility] Rjunsbkcwp[address] [place] [address]Dr. Ricardo Rocha ALT [Catalytic activity/Vol] 22 U/L Normal 14-59 [facility] Comment on above: Performed By: #### T SH, CMP, LIPID ####[facility] Vpfpqbdgmh[address] [place] [address]Dr. Ricardo Rocha Anion gap [Moles/Vol] 16.1 mmol/L Normal [facility] Comment on above: Performed By: #### T SH, CMP, LIPID ####[facility] Dphbdgeuyr[address] [place] [address]Dr. Ricardo Rocha AST [Catalytic activity/Vol] 22 U/L Normal 15-37 [facility] Comment on above: Performed By: #### T SH, CMP, LIPID ####[facility] Deyjlmnrhk[address] [place] [address]Dr. Ricardo Rocha Bilirubin [Mass/Vol] 0.2 mg/dL Normal 0.2-1.0 [facility] Comment on above: Performed By: #### T SH, CMP, LIPID ####[facility] Rrykmidugq30[address] [place] [address]Dr. Ricardo Rocha Calcium [Mass/Vol] 9.4 mg/dL Normal 8.5-10.1 [facility] Comment on above: Performed By: #### T SH, CMP, LIPID ####[facility] Pcmedrnvab2[address] [place] [address]Dr. Ricardo Rocha Chloride [Moles/Vol] 102 mmol/L Normal 98-107 [facility] Comment on above: Performed By: #### T SH, CMP, LIPID ####[facility] Jj[address]xdkdptn26[address] [place] [address]Dr. Ricardo Rocha CO2 [Moles/Vol] 18.4 mmol/L Critically low 21.0-32.0 [facility] Comment on above: Performed By: #### T SH, CMP, LIPID ####[facility] X[address]wejnxh[address] [place] [address]Dr. Ricardo Rocha Creatinine [Mass/Vol] 2.01 mg/dL Critically high 0.55-1.02 [facility] Comment on above: Performed By: #### T SH, CMP, LIPID ####[facility] Eibz[address]zzkh[address] [place] [address]Dr. Ricardo Rocha EGFR-AF [place] 30 mL/min/1.73m2 Critically low >=60 [facility] Comment on above: Performed By: #### T SH, CMP, LIPID ####[facility] [address]km[address]jz[address] [place], [place] [address]Dr. Ricardo Rocha EGFR-NON AF [place] 25 mL/min/1.73m2 Critically low >=60 [facility] Comment on above: Performed By: #### T SH, CMP, LIPID ####[facility] [address]qq[address]ape[address] [place] [address]Dr. Ricardo Rocha Globulin (S) [Mass/Vol] 6.3 g/dL Normal [facility] Comment on above: Performed By: #### T SH, CMP, LIPID ####[facility] Ckwfehyrvw28[address] [place] [address]Dr. Ricardo Rocha Glucose [Mass/Vol] 118 mg/dL Critically high 74-106 [facility] Comment on above: Performed By: #### T SH, CMP, LIPID ####[facility] Xatzdmaxvt4044 [place] [address]Dr. Ricardo Rocha Potassium [Moles/Vol] 5.5 mmol/L Critically high 3.5-5.1 [facility] Comment on above: Performed By: #### T SH, CMP, LIPID ####[facility] Ozrpxslkrs5[address] [place] [address]Dr. Ricardo Rocha Protein [Mass/Vol] 9.6 g/dL Critically high 6.4-8.2 [facility] Comment on above: Performed By: #### T SH, CMP, LIPID ####[facility] Qwwbcuehrg17[address] [place] [address]Dr. Ricardo Rocha Sodium [Moles/Vol] 131 mmol/L Critically low 136-145 [facility] Comment on above: Performed By: #### T SH, CMP, LIPID ####[facility] Tvesuhrwid26[address] [place] [address]Dr. Ricardo Rocha Urea nitrogen [Mass/Vol] 45.0 mg/dL Critically high 7.0-18.0 [facility] Comment on above: Performed By: #### T SH, CMP, LIPID ####[facility] Izvzgdvxjc9407 [place] [address]Dr. Ricardo Rocha Urea nitrogen/Creatinine [Mass ratio] 22.4 mg/mg Normal [facility] Comment on above: Performed By: #### T SH, CMP, LIPID ####[facility] Ccsxrhfshe87[address] [place] [address]Dr. Ricardo Rocha TSHon 07-06-2022 TSH 1.178 uIU/mL Normal 0.358-3.740 [facility] Comment on above: Performed By: #### T SH, CMP, LIPID ####[facility] Tkkinhxuei[address] [place] [address]Dr. Ricardo Rocha UA RANDOM W/MICROSCOPICon BACTERIA NONE SEEN Normal NONE SEEN The [facility] Comment on above: Performed By: #### U AMIC ####[facility] Cmwtkamkkx230[address] [place] [phone]. Ricardo Rocha Bilirubin Ql (U) Negative Normal NEGATIVE The [facility] Comment on above: Performed By: #### U AMIC ####[facility] [address]ere[address] [place] [address]Dr. Ricardo Rocha CAST NONE SEEN Normal NONE SEEN The [facility] Comment on above: Performed By: #### U AMIC ####[facility] U[address]ms[address]jaak[address] [place], [place] [address]Dr. Naonmarcial Rocha Clarity (U) CLEAR Normal CLEAR [facility] Comment on above: Performed By: #### U AMIC ####[facility] Uiiqnugvjj[address] [place], [place] [address]Dr. Nanomarcial Rocha Color (U) LT. YELLOW Normal YELLOW [facility] Comment on above: Performed By: #### U AMIC ####[facility] Zmamyiwtec[address] [place], [place] [address]Dr. Nanomarcial Rocha Crystals LM Nom (Urine sed) NONE SEEN Normal NONE SEEN The [facility] Comment on above: Performed By: #### U AMIC ####[facility] Hgzzphgpqg[address] [place], [place] [address]Dr. Ricardo Rocha Epithelial cells LM Ql (Urine sed) NONE SEEN Normal NONE SEEN /RARE [facility] Comment on above: Performed By: #### U AMIC ####[facility] Capnadekgx[address] [place], [place] [address]Dr. Ricardo Rocha Glucose Ql (U) Negative Normal NEGATIVE The [facility] Comment on above: Performed By: #### U AMIC ####[facility] E[address]mcgfpdwi[address] [place], [place] [address]Dr. Ricardo Rocha Hemoglobin Ql (U) Negative Normal NEGATIVE The [facility] Comment on above: Performed By: #### U AMIC ####[facility] O[address]rspbkch[address] [place], [place] [address]Dr. Ricardo Rocha Ketones Ql (U) Negative Normal NEGATIVE The [facility] Comment on above: Performed By: #### U AMIC ####[facility] Yrqntwfllm826227 [address] [place], [place] [address]Dr. Ricardo Rocha LEUKOCYTES Negative Normal NEGATIVE The [facility] Comment on above: Performed By: #### U AMIC ####[facility] [address]liqadzm[address] [place] [address]Dr. Ricardo Aj MUCOUS NONE SEEN Normal NONE SEEN The [facility] Comment on above: Performed By: #### U AMIC ####[facility] Kquyfosden[address] [place] [address]Dr. Ricardo Rocha Nitrite Ql (U) Negative Normal NEGATIVE The [facility] Comment on above: Performed By: #### U AMIC ####[facility] Vojzimcuue27[address] [place] [address]Dr. Ricardo Rocha pH (U) 5.5 [pH] Normal 5-9 [facility] Comment on above: Performed By: #### U AMIC ####[facility] Npldvqtphk8[address] [place] [address]Dr. Ricardo Rocha RBC NONE SEEN Abnormal 0-2 The [facility] Comment on above: Performed By: #### U AMIC ####[facility] Mtevoobgwf08[address] [place] [address]Dr. Nanomarcial Rocha SPEC GRAVITY 1.020 Normal 1.005-<=1.02 5 The [facility] Comment on above: Performed By: #### U AMIC ####[facility] Xwgbhhmcdg75[address] [place] [address]Dr. Ricardo Rocha UA PROTEIN Negative Normal NEGATIVE/ TRACE The [facility] Comment on above: Performed By: #### U AMIC ####[facility] Aivljzhana7[address] [place] [address]Dr. Ricardo Rocha Urobilinogen Qn (U) 0.2 {Madeleine'U}/dL Normal 0.2 - 1. 0 The [facility] Comment on above: Performed By: #### U AMIC ####[facility] Dmepripwes[address] [place] [address]Dr. Ricardo Rocha WBC NONE SEEN Normal NONE SEEN The [facility] Comment on above: Performed By: #### U AMIC ####[facility] Kxdmlcaazt6685 [place] [address]Dr. Ricardo Rocha CBC W MANUAL DIFFon 06-16-20 22 ATYPICAL LYMPH # Normal The [facility] Comment on above: Performed By: #### C DWAINE ####[facility] Dcezolcxjy[address] [place] [address]Dr. Ricardo Rocha ATYPICAL LYMPH % Normal The [facility] Comment on above: Performed By: #### C DWAINE ####[facility] Tehykdaexs[address] [place], [place] [address]Dr. Ricardo Rocha BAND # 0.2 103/ul Normal 0.0-0.3 The [facility] Comment on above: Performed By: #### C DWAINE ####[facility] Cqlcbeoyin[address] [place], [place] [address]Dr. Ricardo Rocha BAND % 2 % Normal 0-5 [facility] Comment on above: Performed By: #### C DWAINE ####[facility] Zfkfebvbzf[address] [place], [place] [address]Dr. Ricardo Rocha BASOM # 0.00 103/ul Normal 0.00-0.10 The [facility] Comment on above: Performed By: #### C DWAINE ####[facility] Ihggkpcojh[address] [place], [place] [address]Dr. Ricardo Rocha BASOM % 0.0 % Critically low 0.2-2.0 The [facility] Comment on above: Performed By: #### C DWAINE ####[facility] Pgzukxxujb[address] [place], [place] [address]Dr. Ricardo Rocha BLAST # Normal The [facility] Comment on above: Performed By: #### C DWAINE ####[facility] Uipqelvtoj[address] [place], [place] [address]Dr. Ricardo Rocha BLAST % Normal The [facility] Comment on above: Performed By: #### C DWAINE ####[facility] Favlvgddky[address] [place], [place] [address]Dr. Ricardo Rocha CORRECTED WBC Normal 4.0-11.0 The [facility] Comment on above: Performed By: #### C DWAINE ####[facility] Jgwtozbyxx[address] [place], [place] [address]Dr. Ricardo Rocha EOS # 0.11 103/ul Normal 0.00-0.70 [facility] Comment on above: Performed By: #### C DWAINE ####[facility] Yjvnavxvvy9380 [place] [id number]. Ricardo Rocha EOS% 1.0 % Normal 0.9-7.0 The [facility] Comment on above: Performed By: #### C DWAINE ####[facility] Akiizxuhrm3104 [place] [id number]. Ricardo Rocha HCT 24.2 % Critically low 36.0-48.0 The [facility] Comment on above: Performed By: #### C DWAINE ####[facility] Rwyupaljlp8675 [place] [id number]. Ricardo Rocha HGB 7.9 g/dl Critically low 12.0-16.0 The [facility] Comment on above: Performed By: #### Esteban ISIDRO ####[facility] Pehyfljkca[address] [place], [place] [address]Dr. Ricardo Rocha LYMPHM # 1.81 103/ul Normal 1.20-3.80 The [facility] Comment on above: Performed By: #### Esteban ISIDRO ####[facility] Gqtakkfhqe0763 [place] [id number]. Ricardo Rocha LYMPHM% 16.0 % Critically low 20.5-60.0 The [facility] Comment on above: Performed By: #### Esteban ISIDRO ####[facility] Bqvxbsvwvv0636 [place] [id number]. Ricardo Rocha MCH 25.2 pg Critically low 26.7-34.0 The [facility] Comment on above: Performed By: #### C DWAINE ####[facility] Iinwevzoyq[address] [place], [place] [address]Dr. Ricardo Rocha MCHC 32.6 g/dl Normal 29.9-35.2 The [facility] Comment on above: Performed By: #### C DWAINE ####[facility] Zuzxafenjg7408 [place] [id number]. Ricardo Rocha MCV 77.3 fL Critically low 81.0-99.0 The [facility] Comment on above: Performed By: #### C DWAINE ####[facility] Itfclaruum2044 [place] [phone]. Ricardo Rocha METAMYELOCYTE # 0.5 103/ul Normal The [facility] Comment on above: Performed By: #### C DWAINE ####[facility] Wcmlzeseva6095 [place] [id number]. Ricardo Rocha METAMYELOCYTE % 4 % Normal The [facility] Comment on above: Performed By: #### C DWAINE ####[facility] Pauwglzmfa0415 [place] [id number]. Ricardo Rocha MONOM# 0.45 103/ul Normal 0.30-0.80 The [facility] Comment on above: Performed By: #### C DWAINE ####[facility] Uxefwpmxne[address] [place], [place] [address]Dr. Ricardo Rocha MONOM% 4.0 % Normal 1.7-12.0 The [facility] Comment on above: Performed By: #### C DWAINE ####[facility] Oimiwkerks[address] [place], [place] [address]Dr. Ricardo Rocha MPV 10.4 fL Normal 9.5-13.5 [facility] Comment on above: Performed By: #### C DWAINE ####[facility] Uvoqzjgrtt[address] [place], [place] [address]Dr. Ricardo Rocha MYELOCYTE # 0.5 103/ul Normal The [facility] Comment on above: Performed By: #### C DWAINE ####[facility] Ouowyvjhnu8786 [place] [id number]. Ricardo Rocha MYELOCYTE % 4 % Normal The [facility] Comment on above: Performed By: #### C DWAINE ####[facility] Fhwbylzhww[address] [place], [place] [address]Dr. Nanomarcial Rocha NRBC Normal The [facility] Comment on above: Performed By: #### C DWAINE ####[facility] [address]hdc[address] [place], [place] [address]Dr. Ricardo Rocha PLT 325 103/ul Normal 150-450 The [facility] Comment on above: Performed By: #### C DWAINE ####[facility] Vssbairljf1680 [place] [id number]. Ricardo Aj RBC 3.13 106/ul Critically low 4.20-5.40 [facility] Comment on above: Performed By: #### C DWAINE ####[facility] Hjavbjhvde3712 [place] [phone]. Ricardo Aj RDW 13.7 % Normal 11.0-15.0 [facility] Comment on above: Performed By: #### C DWAINE ####[facility] Tkjhotiwtp4983 [place] [phone]. Ricardo Rcoha SEG # 7.80 103/ul Critically high 1.40-6.[address] [facility] Comment on above: Performed By: #### Esteban ISIDRO ####[facility] Okloshvquz1976 [place] [phone]. Ricardo Aj SEG % 69.0 % Normal 43.0-75.0 [facility] Comment on above: Performed By: #### C DWAINE ####[facility] Spapofbdjn6694 [place] [phone]. Ricardo Aj WBC 11.3 103/ul Critically high 4.0-11.[address] [facility] Comment on above: Performed By: #### Esteban ISIDRO ####[facility] Rforvblbtl2384 [place] [phone] Rocha PROF 14(COMP METB)on 022 Albumin [Mass/Vol] 1.7 g/dL Critically low 3.4-5.0 [facility] Comment on above: Performed By: #### C MP ####[facility] Hyqusutytk9197 [place] [phone] Rocha Albumin/Globulin [Mass ratio] 0.4 {ratio} Normal [facility] Comment on above: Performed By: #### C MP ####[facility] Lgtllfvlsw2286 [place] [phone] Rocha ALP [Catalytic activity/Vol] 174 U/L Critically high 46-116 [facility] Comment on above: Performed By: #### C MP ####[facility] Cjerksoxyd75[address] [place] [address]Dr. Ricardo Rocha ALT [Catalytic activity/Vol] 14 U/L Normal 14-59 [facility] Comment on above: Performed By: #### C MP ####[facility] Tgfhogmaki3430 [place] [address]Dr. Ricardo Rocha Anion gap [Moles/Vol] 10.8 mmol/L Normal [facility] Comment on above: Performed By: #### C MP ####[facility] Dgsrxjxbps[address] [place], [place] [address]Dr. Ricardo Rocha AST [Catalytic activity/Vol] 13 U/L Critically low 15-37 [facility] Comment on above: Performed By: #### C MP ####[facility] Opumimlede[address] [place], [place] [address]Dr. Ricardo Aj Bilirubin [Mass/Vol] 0.3 mg/dL Normal 0.2-1.0 [facility] Comment on above: Performed By: #### C MP ####[facility] Zmfvqxlzbi[address] [place], [place] [address]Dr. Ricardo Aj Calcium [Mass/Vol] 8.2 mg/dL Critically low 8.5-10.1 Th [facility] Comment on above: Performed By: #### C MP ####[facility] Tpmufjcgqt[address] [place], [place] [address]Dr. Ricardo Aj Chloride [Moles/Vol] 104 mmol/L Normal 98-107 The [facility] Comment on above: Performed By: #### C MP ####[facility] Xhxflenyvc[address] [place], [place] [address]Dr. Ricardo Aj CO2 [Moles/Vol] 22.4 mmol/L Normal 21.0-32.0 The [facility] Comment on above: Performed By: #### C MP ####[facility] Dtqlkanuiy[address] [place], [place] [address]Dr. Ricardo jA Creatinine [Mass/Vol] 1.29 mg/dL Critically high 0.55-1.02 [facility] Comment on above: Performed By: #### C MP ####[facility] Pfglodklkh5742 [place] [address]Dr. Ricardo Rocha EGFR-AF [place] 50 mL/min/1.73m2 Critically low >=60 [facility] Comment on above: Performed By: #### C MP ####[facility] Yppkpxijay7166 [place] [address]Dr. Ricardo Rocha EGFR-NON AF [place] 42 mL/min/1.73m2 Critically low >=60 [facility] Comment on above: Performed By: #### C MP ####[facility] Kijtbgkvsf2040 [place] [address]Dr. Ricardo Rocha Globulin (S) [Mass/Vol] 4.8 g/dL Normal [facility] Comment on above: Performed By: #### C MP ####[facility] Ysmjadsibo7192 [place] [address]Dr. Ricardo Rocha Glucose [Mass/Vol] 262 mg/dL Critically high 74-106 T [facility] Comment on above: Performed By: #### C MP ####[facility] Xmhjvknrnw[address] [place], [place] [address]Dr. Ricardo Rocha Potassium [Moles/Vol] 3.2 mmol/L Critically low 3.5-5.1 [facility] Comment on above: Performed By: #### C MP ####[facility] Gfxumpbmwq6478 [place] [address]Dr. Ricardo Rocha Protein [Mass/Vol] 6.5 g/dL Normal 6.4-8.2 [facility] Comment on above: Performed By: #### C MP ####[facility] Hzlpmwwzdd9513 [place] [address]Dr. Ricardo Rocha Sodium [Moles/Vol] 134 mmol/L Critically low 136-145 Th [facility] Comment on above: Performed By: #### C MP ####[facility] Daxrsdfkki[address] [place] [address]Dr. Ricardo Rocha Urea nitrogen [Mass/Vol] 20.0 mg/dL Critically high 7.0-18.0 [facility] Comment on above: Performed By: #### C MP ####[facility] Psqhrieeyg1882 [place] [address]Dr. Ricardo Rocha Urea nitrogen/Creatinine [Mass ratio] 15.5 mg/mg Normal The [facility] Comment on above: Performed By: #### C MP ####[facility] Gorhgilehe[address] [place], [place] [address]Dr. Ricardo Rocha CBC AUTO DIFFon 06-15-2022 BASO # 0.1 103/ul Normal 0.0-0.1 [facility] Comment on above: Performed By: #### C BC ####[facility] Lwumxofqmd[address] [place], [place] [address]Dr. Ricardo Rocha Basophils/100 WBC (Bld) 0.7 % Normal 0.2-2.0 [facility] Comment on above: Performed By: #### C BC ####[facility] Oxqvnwndeg2[address] [place], [place] [address]Dr. Ricardo Rocha EO # 0.1 103/ul Normal 0.0-0.7 [facility] Comment on above: Performed By: #### C BC ####[facility] Hmhtyeufli[address] [place], [place] [address]DrIrina Rocha Eosinophils/100 WBC (Bld) 0.7 % Critically low 0.9-7.0 [facility] Comment on above: Performed By: #### C BC ####[facility] Iznuhpexsv[address] [place], [place] [address]Dr. Ricardo Rocha Erythrocyte distribution width (RBC) [Ratio] 13.7 % Normal 11.0-15.0 The [facility] Comment on above: Performed By: #### C BC ####[facility] Kqhofghttv[address] [place], [place] [address]Dr. Ricardo Rocha Hematocrit (Bld) [Volume fraction] 26.7 % Critically low 36.0-48.0 The [facility] Comment on above: Performed By: #### C BC ####[facility] Ixyuanfczb4[address] [place], [place] [address]Dr. Ricardo Rocha Hemoglobin (Bld) [Mass/Vol] 8.4 g/dL Critically low 12.0-16.0 The [facility] Comment on above: Performed By: #### C BC ####[facility] Xggyqzawsm8[address] [place] [address]Dr. Ricardo Rocha IG # 0.83 10e3/ul Critically high 0.00-0.03 The [facility] Comment on above: Performed By: #### C BC ####[facility] Tfawgvvsrp17[address] [place] [address]Dr. Ricardo Rocha IG % 6.2 % Critically high 0.0-0.5 The [facility] Comment on above: Performed By: #### C BC ####[facility] Prbdhwktzt5795 [place] [address]Dr. Ricardo Rocha LYMPH # 1.3 103/ul Normal 1.2-3.8 [facility] Comment on above: Performed By: #### C BC ####[facility] Yweuuanady3667 [place] [address]Dr. Ricardo Rocha Lymphocytes/100 WBC (Bld) 9.6 % Critically low 20.5-60.0 [facility] Comment on above: Performed By: #### C BC ####[facility] Jceyjdygnn5234 [place] [address]Dr. Ricardo Rocha MANUAL DIFF REQ NO Normal The [facility] Comment on above: Performed By: #### C BC ####[facility] Hynfmolihl6965 [place] [address]Dr. Ricardo Rocha MCH (RBC) [Entitic mass] 25.1 pg Critically low 26.7-34.0 [facility] Comment on above: Performed By: #### C BC ####[facility] Adyyawhggj57[address] [place] [address]Dr. Ricardo Rocha MCHC (RBC) [Mass/Vol] 31.5 g/dL Normal 29.9-35.2 [facility] Comment on above: Performed By: #### C BC ####[facility] Ttmxcuncrw3066 [place] [address]Dr. Ricardo Rocha MCV (RBC) [Entitic vol] 79.7 fL Critically low 81.0-99.0 [facility] Comment on above: Performed By: #### C BC ####[facility] Mysossdaki4524 [place] [id number]. Ricardo Rocha MONO # 1.0 103/ul Critically high 0.3-0.8 The [facility] Comment on above: Performed By: #### C BC ####[facility] Mgasgqnclc6541 [place] [address]Dr. Ricardo Rocha Monocytes/100 WBC (Bld) 7.3 % Normal 1.7-12.0 [facility] Comment on above: Performed By: #### C BC ####[facility] Jbzcofwjhi99[address] [place] [address]Dr. Ricardo Rocha NEUT # 10.2 103/ul Critically high 1.4-6.5 The [facility] Comment on above: Performed By: #### C BC ####[facility] Gzdscumdrb0965 [place] [address]Dr. Ricardo Rocha Neutrophils/100 WBC (Bld) 75.5 % Critically high 43.0-75.0 [facility] Comment on above: Performed By: #### C BC ####[facility] Huvphfegyg2195 [place] [address]Dr. Ricardo Rocha Platelet mean volume (Bld) [Entitic vol] 11.8 fL Normal 9.5-13.5 [facility] Comment on above: Performed By: #### C BC ####[facility] Xwwmjufwdr4206 [place] [address]Dr. Ricardo Aj PLT 208 103/ul Normal 150-450 [facility] Comment on above: Performed By: #### C BC ####[facility] Mzdbpkwnpj15[address] [place] [address]Dr. Ricardo Aj RBC 3.35 106/ul Critically low 4.20-5.40 The [facility] Comment on above: Performed By: #### C BC ####[facility] Rikujdcjtz9[address] [place] [address]Dr. Ricardo Rocha WBC 13.5 103/ul Critically high 4.0-11.0 The [facility] Comment on above: Performed By: #### C BC ####[facility] Hbkztwlskv2808 [place], [place] [address]Pd. Ricardo Rocha CULTURE BLOODon 06-15-2022 Microscopic examination of blood, culture Culture Observations: NO GROWTH AT 5 DAYS Normal The [facility] Comment on above: Performed By: #### B LDCX2 ####[facility] Euplgbbhxk0752 [place] [id number]. Ricardo Rocha Microscopic examination of blood, culture Culture Observations: NO GROWTH AT 5 DAYS Normal The [facility] Comment on above: Performed By: #### B LDCX1 ####[facility] Slshcgrmxw8267 [place] [phone]. Ricardo Rocha Covid-19 PCR (CVDTBH)on 05-22 SARS-CoV-2 (COVID-19) RNA ADRIEL+probe Ql (Unsp spec) Not detected Normal NOT DETECTED The [facility] Comment on above: Result Comment: When diagnostic testing is negative, the possibility of a false negative should be considered inthe context of a patient's recent exposures and the presence of clinical signs and symptomsconsistent with SARS-CoV-2.This test is not yet approved or cleared by the [place] FDA. When there are no FDA-approved or cleared tests available, and other criteria are met, FDA can make tests available under an emergency access mechanism called an Emergency Use Authorization (EUA). The EUA for this test is supported by the Quality Control Systems Manager of Health and Human Service's declaration that circumstances exist to justify the emergency use of in vitro diagnostics for the detection and/or diagnosis of the virus that causes COVID-19. This EUA will remain in effect for the duration of the COVID-19 declaration justifying emergency of IVDs, unless it is terminated or revoked by the FDA (after which the test may no longer be used). Performed By: #### C VDTBH ####[facility] Pjpoixhxdt5[address] [place] [phone]. Ricardo Rocha POINT OF CARE GLUCOSEon 05-22 Glucose [Mass/Vol] 366 mg/dL Critically high 74-106 [facility] Comment on above: Performed By: #### P OCGLUC ####[facility] Zamajucssg7873 [place] [address]Dr. Ricardo Rocha Glucose [Mass/Vol] 229 mg/dL Critically high 74-106 [facility] Comment on above: Performed By: #### P OCGLUC ####[facility] Ivvdiloupo2334 [place] [address]Dr. Ricardo Rocha Glucose [Mass/Vol] 258 mg/dL Critically high 74-106 [facility] Comment on above: Performed By: #### P OCGLUC ####[facility] Gcfgpjtntq[address] [place], [place] [address]Dr. Ricardo Rocha PROF 14(COMP METB)on 022 Albumin [Mass/Vol] 1.8 g/dL Critically low 3.4-5.0 [facility] Comment on above: Performed By: #### C MP ####[facility] Eiwvnybyoi[address] [place], [place] [address]Dr. Ricardo Rocha Albumin/Globulin [Mass ratio] 0.4 {ratio} Normal [facility] Comment on above: Performed By: #### C MP ####[facility] Cdfxkromsc[address] [place], [place] [address]Dr. Ricardo Rocha ALP [Catalytic activity/Vol] 196 U/L Critically high 46-116 [facility] Comment on above: Performed By: #### C MP ####[facility] Dakoztfsry[address] [place], [place] [address]Dr. Ricardo Rocha ALT [Catalytic activity/Vol] 18 U/L Normal 14-59 [facility] Comment on above: Performed By: #### C MP ####[facility] Gnlcjxfcmn[address] [place], [place] [address]Dr. Ricardo Rocha Anion gap [Moles/Vol] 16.3 mmol/L Normal [facility] Comment on above: Performed By: #### C MP ####[facility] Acnyqtxhjl[address] [place], [place] [address]Dr. Ricardo Rocha AST [Catalytic activity/Vol] 22 U/L Normal 15-37 [facility] Comment on above: Performed By: #### C MP ####[facility] Yhnbznkcha4045 [place] [address]Dr. Ricardo Aj Bilirubin [Mass/Vol] 0.4 mg/dL Normal 0.2-1.0 [facility] Comment on above: Performed By: #### C MP ####[facility] [address]yrpzvixyn[address] [place], [place] [address]Dr. Ricardo Rocha Calcium [Mass/Vol] 8.2 mg/dL Critically low 8.5-10.1 Th [facility] Comment on above: Performed By: #### C MP ####[facility] Mzxvxeyjhu[address] [place], [place] [address]Dr. Ricardo Rocha Chloride [Moles/Vol] 103 mmol/L Normal 98-107 [facility] [facility] Comment on above: Performed By: #### C MP ####[facility] Camfntcodv[address] [place], [place] [address]Dr. Ricardo Rocha CO2 [Moles/Vol] 19.0 mmol/L Critically low 21.0-32.0 [facility] Comment on above: Performed By: #### C MP ####[facility] Aynbagpboe[address] [place], [place] [address]Dr. Ricardo Rocha Creatinine [Mass/Vol] 1.32 mg/dL Critically high 0.55-1.02 [facility] Comment on above: Performed By: #### C MP ####[facility] Vrdotdqxew[address] [place], [place] [address]Dr. Ricardo Rocha EGFR-AF [place] 49 mL/min/1.73m2 Critically low >=60 [facility] Comment on above: Performed By: #### C MP ####[facility] Jaggbkpney[address] [place], [place] [address]Dr. Ricardo Rocha EGFR-NON AF [place] 41 mL/min/1.73m2 Critically low >=60 [facility] Comment on above: Performed By: #### C MP ####[facility] Ijcrkifzcm[address] [place], [place] [address]Dr. Ricardo Rocha Globulin (S) [Mass/Vol] 5.0 g/dL Normal [facility] Comment on above: Performed By: #### C MP ####[facility] [address] [place] [address]Dr. Ricardo Aj Glucose [Mass/Vol] 228 mg/dL Critically high 74-106 T [facility] Comment on above: Performed By: #### C MP ####[facility] Zqbpmrrcbj[address] [place] [address]Dr. Ricardo Rocha Potassium [Moles/Vol] 3.3 mmol/L Critically low 3.5-5.1 [facility] Comment on above: Performed By: #### C MP ####[facility] Einijwhnnk[address] [place], [place] [address]Dr. Ricardo Rocha Protein [Mass/Vol] 6.8 g/dL Normal 6.4-8.2 [facility] Comment on above: Performed By: #### C MP ####[facility] Rplwqgarcy[address] [place], [place] [address]Dr. Ricardo Rocha Sodium [Moles/Vol] 135 mmol/L Critically low 136-145 Th [facility] Comment on above: Performed By: #### C MP ####[facility] Odqynvkmmp[address] [place], [place] [address]Dr. Ricardo Rocha Urea nitrogen [Mass/Vol] 23.0 mg/dL Critically high 7.0-18.0 [facility] Comment on above: Performed By: #### C MP ####[facility] Giwlygcntr[address] [place], [place] [address]Dr. Ricardo Rocha Urea nitrogen/Creatinine [Mass ratio] 17.4 mg/mg Normal [facility] Comment on above: Performed By: #### C MP ####[facility] Uojvejgcwx[address] [place], [place] [address]Dr. 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 Comment on above: Performed By: #### U MICRO, UACSIND ####[facility] Vnlrlqpoix4[address] [place], [place] [address]Dr. Ricardo Rocha Clarity (U) CLEAR Normal CLEAR [facility] Comment on above: Performed By: #### U MICRO, UACSIND ####[facility] Ksvjqryeuu[address] [place], [place] [address]Dr. Ricardo Rocha Color (U) LT. YELLOW Normal YELLOW [facility] Comment on above: Performed By: #### U MICRO, UACSIND ####[facility] Alsxjvfvrq07[address] [place], [place] [address]Dr. Ricardo Rocha Glucose Ql (U) 250 mg/dl Abnormal NEGATIVE [facility] Comment on above: Performed By: #### U MICRO, UACSIND ####[facility] Yovjkokxgf[address] [place], [place] [address]Dr. Ricardo Rocha Hemoglobin Ql (U) TRACE-LYSED Abnormal NEGATIVE [facility] Comment on above: Performed By: #### U MICRO, UACSIND ####[facility] Wcdrzrxyul12[address] [place], [place] [address]Dr. Ricardo Rocha Ketones Ql (U) 15 mg/dl Abnormal NEGATIVE [facility] Comment on above: Performed By: #### U MICRO, UACSIND ####[facility] Eoodznrxjg[address] [place], [place] [address]Dr. Ricardo Rocha LEUKOCYTES Negative Normal NEGATIVE [facility] Comment on above: Performed By: #### U MICRO, UACSIND ####[facility] Mbiemikhfe[address] [place], [place] [address]Dr. Ricardo Rocha Nitrite Ql (U) Negative Normal NEGATIVE [facility] Comment on above: Performed By: #### U MICRO, UACSIND ####[facility] Reyuoxpdpb[address] [place], [place] [address]Dr. Ricardo Rocha pH (U) 6.0 [pH] Normal 5-9 [facility] Comment on above: Performed By: #### U MICRO, UACSIND ####[facility] Kbhsighdie[address] [place], [place] [address]Dr. Ricardo Rocha SPEC GRAVITY 1.010 Normal 1.005-<=1.02 5 [facility] Comment on above: Performed By: #### U MICRO, UACSIND ####[facility] [address]wardmhsfr[address] [place] [address]Dr. Ricardo Rocha UA PROTEIN Negative Normal NEGATIVE/ TRACE [facility] Comment on above: Performed By: #### U MICRO, UACSIND ####[facility] Gl[address]ffqldil[address] [place] [address]Dr. Ricardo Rocha UR MICRO IND INDICATED Normal [facility] Comment on above: Performed By: #### U MICRO, UACSIND ####[facility] Jalt[address]mmsl[address] [place] [address]Dr. Ricardo Rocha Urobilinogen Qn (U) 0.2 {Madeleine'U}/dL Normal 0.2 - 1. 0 [facility] Comment on above: Performed By: #### U MICRO, UACSIND ####[facility] F[address]vx[address]uyci[address] [place] [address]Dr. Ricardo Rocha URINE MICROSCOPIC ONLYon BACTERIA NONE SEEN Normal NONE SEEN [facility] Comment on above: Performed By: #### U MICRO, UACSIND ####[facility] F[address]fwy[address]wv[address] [place], [place] [address]Dr. Ricardo Rocha Bacteria identified Cx Nom (U) NOT INDICATED Normal [facility] Comment on above: Performed By: #### U MICRO, UACSIND ####[facility] [address] [place] [address]Dr. Ricardo Rocha CAST NONE SEEN Normal NONE SEEN [facility] Comment on above: Performed By: #### U MICRO, UACSIND ####[facility] Cl[address]jneil[address] [place] [address]Dr. Ricardo Rocha Crystals LM Nom (Urine sed) NONE SEEN Normal NONE SEEN [facility] Comment on above: Performed By: #### U MICRO, UACSIND ####[facility] [address]af[address] [place] [address]Dr. Ricardo Rocha Epithelial cells LM Ql (Urine sed) FEW Abnormal NONE SEEN /RARE [facility] Comment on above: Performed By: #### U MICRO, UACSIND ####[facility] [address]sexi[address] [place] [id number]. Ricardo Rocha MUCOUS NONE SEEN Normal NONE SEEN [facility] Comment on above: Performed By: #### U MICRO, UACSIND ####[facility] Ycshopbtxg4[address] [place] [address]Dr. Ricardo Rocha RBC 2-5 Abnormal 0-2 [facility] Comment on above: Performed By: #### U MICRO, UACSIND ####[facility] Rls[address]wfapq[address] [place] [address]Dr. Ricardo Rocha WBC 2-5 Abnormal NONE SEEN [facility] Comment on above: Performed By: #### U MICRO, UACSIND ####[facility] Espkjtgenm[address]326[address] [place], [place] [address]Dr. Ricardo Rocha YEAST PRESENT Abnormal NONE SEEN The [facility] Comment on above: Performed By: #### U MICRO, UACSIND ####[facility] J[address]clpgj[address] [place] [address]Dr. Ricardo Aj CBC AUTO DIFFon 06-14-2022 BASO # 0.0 103/ul Normal 0.0-0.1 [facility] Comment on above: Performed By: #### C BC ####[facility] Rohdvdwril[address] [place], [place] [address]Dr. Nanomarcial Rocha Basophils/100 WBC (Bld) 0.4 % Normal 0.2-2.0 [facility] Comment on above: Performed By: #### C BC ####[facility] Haqrhnvusl[address] [place], [place] [address]Dr. Ricardo Rocha EO # 0.0 103/ul Normal 0.0-0.7 [facility] Comment on above: Performed By: #### C BC ####[facility] Vweimlxqtl[address] [place], [place] [address]Dr. Ricardo Rocha Eosinophils/100 WBC (Bld) 0.4 % Critically low 0.9-7.0 [facility] Comment on above: Performed By: #### C BC ####[facility] Ilientaljr[address] [place], [place] [address]Dr. Ricardo Rocha Erythrocyte distribution width (RBC) [Ratio] 13.8 % Normal 11.0-15.0 [facility] Comment on above: Performed By: #### C BC ####[facility] [address]wtyg[address] [place] [address]Dr. Ricardo Rocha Hematocrit (Bld) [Volume fraction] 26.2 % Critically low 36.0-48.0 [facility] Comment on above: Performed By: #### C BC ####[facility] Urjjvyvk[address] [place], [place] [address]DrIrina Rocha Hemoglobin (Bld) [Mass/Vol] 8.3 g/dL Critically low 12.0-16.0 [facility] Comment on above: Performed By: #### C BC ####[facility] Sy[address]qbqf[address] [place], [place] [address]Dr. Ricardo Rocha IG # 0.24 10e3/ul Critically high 0.00-0.03 [facility] Comment on above: Performed By: #### C BC ####[facility] Ploreapflx[address] [place], [place] [address]Dr. Ricardo Rocha IG % 2.3 % Critically high 0.0-0.5 The [facility] Comment on above: Performed By: #### C BC ####[facility] Aeioctogkd[address] [place], [place] [address]DrIrina Rocha LYMPH # 1.1 103/ul Critically low 1.2-3.8 [facility] Comment on above: Performed By: #### C BC ####[facility] W[address]ftyocfzy[address] [place], [place] [address]DrIrina Rocha Lymphocytes/100 WBC (Bld) 10.2 % Critically low 20.5-60.0 [facility] Comment on above: Performed By: #### C BC ####[facility] Klepgwaknf[address] [place], [place] [address]DrIrina Rocha MANUAL DIFF REQ NO Normal [facility] Comment on above: Performed By: #### C BC ####[facility] Y[address]wvriygm[address] [place], [place] [address]DrIrina Rocha MCH (RBC) [Entitic mass] 25.5 pg Critically low 26.7-34.0 [facility] Comment on above: Performed By: #### C BC ####[facility] Gx[address]fmfwim28[address] [place] [id number]. Ricardo Rocha MCHC (RBC) [Mass/Vol] 31.7 g/dL Normal 29.9-35.2 [facility] Comment on above: Performed By: #### C BC ####[facility] Fudzbmbbjm36[address] [place] [phone]. Ricardo Rocha MCV (RBC) [Entitic vol] 80.6 fL Critically low 81.0-99.0 [facility] Comment on above: Performed By: #### C BC ####[facility] Qrpqzbdeeo97[address] [place] [address]Dr. Ricardo Rocha MONO # 0.7 103/ul Normal 0.3-0.8 [facility] Comment on above: Performed By: #### C BC ####[facility] Xlzaebxxod32[address] [place] [address]Dr. Nanomarcial Rocha Monocytes/100 WBC (Bld) 6.7 % Normal 1.7-12.0 [facility] Comment on above: Performed By: #### C BC ####[facility] Fidtnxhtol5[address] [place] [id number] Ricardo Rocha NEUT # 8.5 103/ul Critically high 1.4-6.5 The [facility] Comment on above: Performed By: #### C BC ####[facility] Mrwsycfgic0206 [place] [address]DrIrina Ricardo Aj Neutrophils/100 WBC (Bld) 80.0 % Critically high 43.0-75.0 [facility] Comment on above: Performed By: #### C BC ####[facility] Gcyhwgvyvc9532 [place] [phone]. Ricardo Rocha Platelet mean volume (Bld) [Entitic vol] 12.1 fL Normal 9.5-13.5 [facility] Comment on above: Performed By: #### C BC ####[facility] Hxxpwbxcgr5[address] [place] [phone]. Ricardo Rocha PLT 173 103/ul Normal 150-450 [facility] Comment on above: Performed By: #### C BC ####[facility] Xbxrlmvnov[address] [place] [phone]. Ricardo Rocha RBC 3.25 106/ul Critically low 4.20-5.40 [facility] Comment on above: Performed By: #### C BC ####[facility] Wapsoygbmb36[address] [place] [phone]. Ricardo Rocha WBC 10.6 103/ul Normal 4.0-11.0 [facility] Comment on above: Performed By: #### C BC ####[facility] Lbvpotkxhd9587 [place] [address]Dr. Ricardo Rocha POINT OF CARE GLUCOSEon 10-2 Glucose [Mass/Vol] 237 mg/dL Critically high 74-106 [facility] Comment on above: Performed By: #### P OCGLUC ####[facility] Sxwvsjwegv9[address] [place] [address]Dr. Ricardo Rocha Glucose [Mass/Vol] 296 mg/dL Critically high 74-106 [facility] Comment on above: Performed By: #### P OCGLUC ####[facility] Evbhvaukoq04[address] [place] [address]Dr. Ricardo Rocha Glucose [Mass/Vol] 406 mg/dL Critically high 74-106 [facility] Comment on above: Performed By: #### P OCGLUC ####[facility] Nycdzjeftg8162 [place] [address]Dr. Ricardo Rocha Glucose [Mass/Vol] 447 mg/dL Critically high 74-106 [facility] Comment on above: Performed By: #### P OCGLUC ####[facility] Ttiettnfkj[address] [place], [place] [address]Dr. Ricardo Rocha Glucose [Mass/Vol] 319 mg/dL Critically high -106 [facility] Comment on above: Performed By: #### P OCGLUC ####[facility] Gnvociplxf[address] [place], [place] [address]Dr. Ricardo Rocha PROF 14(COMP METB)on 06-14- 022 Albumin [Mass/Vol] 1.6 g/dL Critically low 3.4-5.0 [facility] Comment on above: Performed By: #### C MP ####[facility] Htwevnfsfg39[address] [place] [address]Dr. Ricardo Rocha Albumin/Globulin [Mass ratio] 0.3 {ratio} Normal [facility] Comment on above: Performed By: #### C MP ####[facility] Utehohkiuz[address] [place] [address]Dr. Ricardo Rohca ALP [Catalytic activity/Vol] 201 U/L Critically high 46-116 [facility] Comment on above: Performed By: #### C MP ####[facility] Bnzvtitkds15[address] [place] [address]Dr. Ricardo Rocha ALT [Catalytic activity/Vol] 23 U/L Normal 14-59 [facility] Comment on above: Performed By: #### C MP ####[facility] Xrzzzahbab[address] [place], [place] [address]Dr. Ricardo Rocha Anion gap [Moles/Vol] 16.0 mmol/L Normal [facility] Comment on above: Performed By: #### C MP ####[facility] Ugxlhunqxa0[address] [place], [place] [address]Dr. Ricardo Rocha AST [Catalytic activity/Vol] 21 U/L Normal 15-37 [facility] Comment on above: Performed By: #### C MP ####[facility] Xsffnkuzpt7041 [place] [address]Dr. Ricardo Rocha Bilirubin [Mass/Vol] 0.4 mg/dL Normal 0.2-1.0 [facility] Comment on above: Performed By: #### C MP ####[facility] Lmkyczexbe9[address] [place] [address]Dr. Ricardo Rocha Calcium [Mass/Vol] 7.6 mg/dL Critically low 8.5-10.1 [facility] Comment on above: Performed By: #### C MP ####[facility] Bbxkvujevz7262 [place] [address]Dr. Ricardo Rocha Chloride [Moles/Vol] 105 mmol/L Normal 98-107 [facility] Comment on above: Performed By: #### C MP ####[facility] Uxmqipiryp225[address] [place] [address]Dr. Ricardo Rocha CO2 [Moles/Vol] 17.3 mmol/L Critically low 21.0-32.0 [facility] Comment on above: Performed By: #### C MP ####[facility] Zbtcsdslkv9494 [place] [address]Dr. Ricardo Rocha Creatinine [Mass/Vol] 1.54 mg/dL Critically high 0.55-1.02 [facility] Comment on above: Performed By: #### C MP ####[facility] Hryngdhusx[address] [place], [place] [address]Dr. Ricardo Rocha EGFR-AF [place] 41 mL/min/1.73m2 Critically low >=60 [facility] Comment on above: Performed By: #### C MP ####[facility] Kbzkmporlg[address] [place], [place] [address]Dr. Ricardo Rocha EGFR-NON AF [place] 34 mL/min/1.73m2 Critically low >=60 [facility] Comment on above: Performed By: #### C MP ####[facility] Odmjukpawm[address] [place], [place] [address]Dr. Ricardo Rocha Globulin (S) [Mass/Vol] 4.7 g/dL Normal [facility] Comment on above: Performed By: #### C MP ####[facility] Imsgejzfaz232[address] [place] [address]Dr. Ricardo Aj Glucose [Mass/Vol] 277 mg/dL Critically high 74-106 T [facility] Comment on above: Performed By: #### C MP ####[facility] Qmseegrxms[address] [place], [place] [address]Dr. Ricardo Rocha Potassium [Moles/Vol] 3.3 mmol/L Critically low 3.5-5.1 [facility] Comment on above: Performed By: #### C MP ####[facility] Tkrgaaasgg[address] [place], [place] [address]Dr. Ricardo Rocha Protein [Mass/Vol] 6.3 g/dL Critically low 6.4-8.2 Th [facility] Comment on above: Performed By: #### C MP ####[facility] Pfrqmhpbtc[address] [place], [place] [address]Dr. Ricardo Rocha Sodium [Moles/Vol] 135 mmol/L Critically low 136-145 Th [facility] Comment on above: Performed By: #### C MP ####[facility] Xksduhxcbk189[address] [place], [place] [address]Dr. Ricardo Rocha Urea nitrogen [Mass/Vol] 29.0 mg/dL Critically high 7.0-18.0 [facility] Comment on above: Performed By: #### C MP ####[facility] Uqpdlxupcx[address] [place], [place] [address]Dr. Ricardo Rocha Urea nitrogen/Creatinine [Mass ratio] 18.8 mg/mg Normal [facility] Comment on above: Performed By: #### C MP ####[facility] Jddvcltuct[address] [place], [place] [address]Dr. Ricardo Rocha CBC AUTO DIFFon 06-13-2022 BASO # 0.0 103/ul Normal 0.0-0.1 [facility] Comment on above: Performed By: #### C BC ####[facility] Awrjbadcuu[address] [place], [place] [address]Dr. Ricardo Rocha Basophils/100 WBC (Bld) 0.2 % Normal 0.2-2.0 [facility] Comment on above: Performed By: #### C BC ####[facility] Golemqorny[address] [place], [place] [address]Dr. Ricardo Rocha EO # 0.1 103/ul Normal 0.0-0.7 [facility] Comment on above: Performed By: #### C BC ####[facility] Srzahqtaxi[address] [place], [place] [address]Dr. Ricardo Rocha Eosinophils/100 WBC (Bld) 0.6 % Critically low 0.9-7.0 [facility] Comment on above: Performed By: #### C BC ####[facility] Tlhjzelubv13[address] [place] [address]Dr. Ricardo Rocha Erythrocyte distribution width (RBC) [Ratio] 14.2 % Normal 11.0-15.0 [facility] Comment on above: Performed By: #### C BC ####[facility] Uegyidjaxm4[address] [place] [address]Dr. Ricardo Rocha Hematocrit (Bld) [Volume fraction] 27.9 % Critically low 36.0-48.0 [facility] Comment on above: Performed By: #### C BC ####[facility] Jltctpbylx[address] [place], [place] [address]Dr. Ricardo Rocha Hemoglobin (Bld) [Mass/Vol] 8.6 g/dL Critically low 12.0-16.0 [facility] Comment on above: Performed By: #### C BC ####[facility] Dogmpggroa[address] [place], [place] [address]Dr. Ricardo Rocha IG # 0.08 10e3/ul Critically high 0.00-0.03 [facility] Comment on above: Performed By: #### C BC ####[facility] Ocmmqnyazc[address] [place], [place] [address]Dr. Ricardo Aj IG % 0.8 % Critically high 0.0-0.5 [facility] Comment on above: Performed By: #### C BC ####[facility] Iffuxzgbby22[address] [place], [place] [address]Dr. Ricardo Rocha LYMPH # 0.9 103/ul Critically low 1.2-3.8 [facility] Comment on above: Performed By: #### C BC ####[facility] B[address]lsrkm[address] [place], [place] [address]Dr. Ricardo Aj Lymphocytes/100 WBC (Bld) 8.9 % Critically low 20.5-60.0 [facility] Comment on above: Performed By: #### C BC ####[facility] Qxioxbisiv396[address] [place], [place] [address]Dr. Nanomarcial Rocha MANUAL DIFF REQ NO Normal [facility] Comment on above: Performed By: #### C BC ####[facility] Gmckwwtvwd0144 [place] [phone]. Ricardo Rocha MCH (RBC) [Entitic mass] 25.1 pg Critically low 26.7-34.0 [facility] Comment on above: Performed By: #### C BC ####[facility] Hmoalhbjpx3260 [place] [phone]. Ricardo Aj MCHC (RBC) [Mass/Vol] 30.8 g/dL Normal 29.9-35.2 [facility] Comment on above: Performed By: #### C BC ####[facility] Mxdphrwttx6903 [place] [address]Dr. Ricardo Aj MCV (RBC) [Entitic vol] 81.6 fL Normal 81.0-99.0 [facility] Comment on above: Performed By: #### C BC ####[facility] [address]tns[address]iab[address] [place], [place] [address]Dr. Ricardo Rocha MONO # 0.6 103/ul Normal 0.3-0.8 [facility] Comment on above: Performed By: #### C BC ####[facility] Wmyhequpdf[address] [place], [place] [address]Dr. Nanomarcial Rocha Monocytes/100 WBC (Bld) 5.7 % Normal 1.7-12.0 [facility] Comment on above: Performed By: #### C BC ####[facility] Itcxhbcmum[address] [place], [place] [address]Dr. Ricardo Rocha NEUT # 8.4 103/ul Critically high 1.4-6.5 [facility] Comment on above: Performed By: #### C BC ####[facility] [address]phpt[address] [place] [id number]. Ricardo Rocha Neutrophils/100 WBC (Bld) 83.8 % Critically high 43.0-75.0 [facility] Comment on above: Performed By: #### C BC ####[facility] Jukrixvnkc[address] [place] [id number]. Ricardo Rocha Platelet mean volume (Bld) [Entitic vol] 12.1 fL Normal 9.5-13.5 [facility] Comment on above: Performed By: #### C BC ####[facility] [address] [place] [address]Dr. Ricardo Rocha PLT 149 103/ul Critically low 150-450 [facility] Comment on above: Performed By: #### C BC ####[facility] Jomdbcdaqz3[address] [place] [id number]. Nanomarcial Rocha RBC 3.42 106/ul Critically low 4.20-5.40 [facility] Comment on above: Performed By: #### C BC ####[facility] Hdebpeiqhh90[address] [place] [id number]. Nanomarcial Aj WBC 10.0 103/ul Normal 4.0-11.0 [facility] Comment on above: Performed By: #### C BC ####[facility] Tutrpdaggs[address] [place], [place] [address]Dr. Ricardo Rocha CULTURE OTHERon 06-13-2022 CULTURE OTHER Normal The [facility] Comment on above: Performed By: #### O THCX ####[facility] J[address]kox[address] [place], [place] [address]Dr. Ricardo Rocha CULTURE OTHER Normal The [facility] Comment on above: Performed By: #### O THCX ####[facility] Mnsgdqlfpc[address] [place], [place] [address]Dr. Ricardo Rocha CULTURE OTHER Normal [facility] Comment on above: Performed By: #### O THCX ####[facility] Trpvoplnft[address] [place], [place] [address]Dr. Ricardo Rocha GI PANEL (PCR)on 06-13-2022 Adenovirus F 40/41 Not detected Normal NOT DETECTED [facility] Comment on above: Performed By: #### G IPANEL ####[facility] Gmcovczjef[address] [place], [place] [address]Dr. Ricardo Rocha Astrovirus Not detected Normal NOT DETECTED [facility] Comment on above: Performed By: #### G IPANEL ####[facility] Hktikxkenl8[address] [place], [place] [address]Dr. Ricardo Rocha C. Diff toxin A/B Not detected Normal NOT DETECTED The [facility] Comment on above: Performed By: #### G IPANEL ####[facility] Wwgbdcwfhr[address] [place], [place] [address]Dr. Ricardo Rocha Campylobacter Not detected Normal NOT DETECTED The [facility] Comment on above: Performed By: #### G IPANEL ####[facility] Tqrmcdqsws[address] [place], [place] [address]Dr. Ricardo Rocha Cryptosporidium Not detected Normal NOT DETECTED The [facility] Comment on above: Performed By: #### G IPANEL ####[facility] Temkicarpy00[address] [place], [place] [address]Dr. Ricardo Rocha Cyclos. Cayetanensis Not detected Normal NOT DETECTED The [facility] Comment on above: Performed By: #### G IPANEL ####[facility] Ewajtsdmwa[address] [place], [place] [address]Dr. Nanomarcial Rocha E. Coli O157 Not Applicable Normal Not Applicable [facility] Comment on above: Performed By: #### G IPANEL ####[facility] Dqqopabjqu[address] [place], [place] [address]Dr. Ricardo Rocha E. histolytica Not detected Normal NOT DETECTED The [facility] Comment on above: Performed By: #### G IPANEL ####[facility] Iqakmtfnow[address] [place], [place] [address]Dr. Ricardo Rocha EAEC Not detected Normal NOT DETECTED The [facility] Comment on above: Performed By: #### G IPANEL ####[facility] Xnsxvupbya[address] [place], [place] [address]Dr. Ricardo Rocha EIEC Not detected Normal NOT DETECTED The [facility] Comment on above: Performed By: #### G IPANEL ####[facility] Wmbmmivbcr[address] [place], [place] [address]Dr. marcial Rocha EPEC Not detected Normal NOT DETECTED The [facility] Comment on above: Performed By: #### G IPANEL ####[facility] Eezmnhjxso[address] [place], [place] [address]Dr. Nanomarcial Rocha ETEC Not detected Normal NOT DETECTED The [facility] Comment on above: Performed By: #### G IPANEL ####[facility] Ltlivkaapi[address] [place] [id number]. Nanomarcial Aj G. Lamblia Not detected Normal NOT DETECTED The [facility] Comment on above: Performed By: #### G IPANEL ####[facility] Fxzowbcfhc57[address] [place] [phone]. Nanomarcial Rocha GIPANEL CONTROLS PASSED Normal The [facility] Comment on above: Performed By: #### G IPANEL ####[facility] Vrkgowuelv[address] [place], [place] [address]Dr. Ricardo Rocha GIPNL MONIQUE HEADER GI PANEL BACTERIA Normal T he [facility] Comment on above: Performed By: #### G IPANEL ####[facility] J[address]axivdud[address] [place], [place] [address]Dr. Ricardo CASASNLHD ECOLI GI PANEL DIARRHEAGEN IC E.COLI / SHIGELLA Normal The [facility] Comment on above: Performed By: #### G IPANEL ####[facility] Eeacwwnwpl[address] [place], [place] [address]Dr. Nanomarcial Aj GIPNLHD INFO SEE BELOW Normal [facility] Comment on above: Result Comment: EAEC - Enteroaggregative E. Coli EPEC- Enteropathogenic E. Coli ETEC- Enterotoxigenic E. Coli lt/st STEC- Shigella-like toxin-producing E. Coli stx1/stx2 EIEC- Shigella/Enteroinvasive E. Coli Performed By: #### G IPANEL ####[facility] Leemdbabae[address] [place], [place] [address]Dr. Yimarcial Rocha GIPNLHD PARASITES GI PANEL PARASITES Normal The [facility] Comment on above: Performed By: #### G IPANEL ####[facility] Mxyijbdqsa[address] [place], [place] [address]Dr. Nanomarcial Aj GIPNLHD VIRUS GI PANEL VIRUSES Normal The [facility] Comment on above: Performed By: #### G IPANEL ####[facility] Mphncjgqos[address] [place], [place] [address]Dr. Ricardo Rocha Norovirus GI/GII Not detected Normal NOT DETECTED The [facility] Comment on above: Performed By: #### G IPANEL ####[facility] Werzazjvef[address] [place], [place] [address]Dr. Ricardo Rocha P. Shigelloides Not detected Normal NOT DETECTED The [facility] Comment on above: Performed By: #### G IPANEL ####[facility] Vdnvnjncxl[address] [place], [place] [address]Dr. Ricardo Rocha Rotavirus A Not detected Normal NOT DETECTED The [facility] Comment on above: Performed By: #### G IPANEL ####[facility] Tojnfxqviq6[address] [place], [place] [address]Dr. Ricardo Rocha Salmonella Not detected Normal NOT DETECTED The [facility] Comment on above: Performed By: #### G IPANEL ####[facility] Kypaxpfudu[address] [place], [place] [address]Dr. Ricardo Rocha Sapovirus Not detected Normal NOT DETECTED The [facility] Comment on above: Performed By: #### G IPANEL ####[facility] Koxbfamrjc[address] [place], [place] [address]Dr. Ricardo Rocha STEC Not detected Normal NOT DETECTED The [facility] Comment on above: Performed By: #### G IPANEL ####[facility] Zrpamswsww[address] [place], [place] [address]Dr. Ricardo Rocha Vibrio Not detected Normal NOT DETECTED The [facility] Comment on above: Performed By: #### G IPANEL ####[facility] [address]vgiwvli[address] [place], [place] [address]Dr. Ricardo Rocha Vibrio Cholera Not detected Normal NOT DETECTED The [facility] Comment on above: Performed By: #### G IPANEL ####[facility] Qptzwsbkhj[address] [place], [place] [address]Dr. Ricardo Rocha Y. Enterocolitica Not detected Normal NOT DETECTED The [facility] Comment on above: Performed By: #### G IPANEL ####[facility] Gbsafhyiww[address] [place], [place] [address]Dr. Ricardo Rocha IRON AND TIBCon 06-13-2022 % SATURATION 19.9 % Normal [facility] Comment on above: Performed By: #### F ETIBC, B12FOL ####[facility] Ol[address]36[address] [place], [place] [address]Ar. Ricardo Rocha Iron [Mass/Vol] 75.0 ug/dL Normal 50.0-170.0 [facility] Comment on above: Performed By: #### F ETIBC, B12FOL ####[facility] U[address]wvie[address] [place] [phone]. Ricardo Rocha TIBC DIRECT 376.0 ug/dL Normal 250.0-450.0 [facility] Comment on above: Performed By: #### F ETIBC, B12FOL ####[facility] Vos[address]ufzyw[address] [place] [phone]. Ricardo Rocha POINT OF CARE GLUCOSEon 05-22 Glucose [Mass/Vol] 238 mg/dL Critically high [address] [place] [address] Comment on above: Performed By: #### P OCGLUC ####[facility] [address] [place] [address]Dr. Ricardo Rocha Glucose [Mass/Vol] 146 mg/dL Critically high [address] [place] [address] Comment on above: Performed By: #### P OCGLUC ####[facility] [address]ucnimgvtx[address] [place] [address]Dr. Ricardo Rocha Glucose [Mass/Vol] 143 mg/dL Critically high [address] [place] [address] Comment on above: Performed By: #### P OCGLUC ####[facility] Anqhfuaeug[address] [place] [address]Dr. Ricardo Rocha Glucose [Mass/Vol] 205 mg/dL Critically high [address] [place] [address] Comment on above: Performed By: #### P OCGLUC ####[facility] Iddrwzxcfr[address] [place] [address]Dr. Ricardo Rocha Glucose [Mass/Vol] 227 mg/dL Critically high [address] [place] [address] Comment on above: Performed By: #### P OCGLUC ####[facility] [address]ndpynpfa[address] [place], [place] [address]Dr. Nanomarcial Rocha PROF 14(COMP METB)on 10-24-2 022 Albumin [Mass/Vol] 1.5 g/dL Critically low 3.4-5.0 Th [facility] Comment on above: Performed By: #### C MP ####[facility] [address]xmfp[address] [place] [address]Dr. Ricardo Rocha Albumin/Globulin [Mass ratio] 0.3 {ratio} Normal [facility] Comment on above: Performed By: #### C MP ####[facility] Dyyjxmdupn[address] [place] [address]Dr. Ricardo Rocha ALP [Catalytic activity/Vol] 136 U/L Critically high 46-116 [facility] Comment on above: Performed By: #### C MP ####[facility] Cbkrlmagcc[address] [place], [place] [address]Dr. Ricardo Rocha ALT [Catalytic activity/Vol] 18 U/L Normal 14-59 [facility] Comment on above: Performed By: #### C MP ####[facility] Nccjnfviuj[address] [place], [place] [address]Dr. Ricardo Rocha Anion gap [Moles/Vol] 10.2 mmol/L Normal [facility] Comment on above: Performed By: #### C MP ####[facility] Oltpsfkyko0[address] [place], [place] [address]Dr. Ricardo Rocha AST [Catalytic activity/Vol] 37 U/L Normal 15-37 [facility] Comment on above: Performed By: #### C MP ####[facility] Ftrvlbtety[address] [place], [place] [address]Dr. Ricardo Rocha Bilirubin [Mass/Vol] 0.4 mg/dL Normal 0.2-1.0 [facility] Comment on above: Performed By: #### C MP ####[facility] Eprkkztnit[address] [place], [place] [address]Dr. Ricardo Rocha Calcium [Mass/Vol] 8.0 mg/dL Critically low 8.5-10.1 Th [facility] Comment on above: Performed By: #### C MP ####[facility] Fpkekqbpiq[address] [place], [place] [address]Dr. Ricardo Rocha Chloride [Moles/Vol] 110 mmol/L Critically high 98-107 [facility] Comment on above: Performed By: #### C MP ####[facility] [address]xavlqify[address] [place] [address]Dr. Ricardo Rocha CO2 [Moles/Vol] 18.2 mmol/L Critically low 21.0-32.0 [facility] Comment on above: Performed By: #### C MP ####[facility] Qjuqktdvql[address] [place] [address]Dr. Ricardo Rocha Creatinine [Mass/Vol] 1.76 mg/dL Critically high 0.55-1.02 [facility] Comment on above: Performed By: #### C MP ####[facility] Ftmqkwsove[address] [place] [address]Dr. Ricardo Rocha EGFR-AF [place] 35 mL/min/1.73m2 Critically low >=60 [facility] Comment on above: Performed By: #### C MP ####[facility] Kieucdjvzu[address] [place], [place] [address]Dr. Ricardo Rocha EGFR-NON AF [place] 29 mL/min/1.73m2 Critically low >=60 [facility] Comment on above: Performed By: #### C MP ####[facility] Pqxbqlrrko[address] [place], [place] [address]Dr. Ricardo Rocha Globulin (S) [Mass/Vol] 4.7 g/dL Normal [facility] Comment on above: Performed By: #### C MP ####[facility] Ovaqgkimht[address] [place] [address]Dr. Ricardo Rocha Glucose [Mass/Vol] 223 mg/dL Critically high 74-106 T [facility] Comment on above: Performed By: #### C MP ####[facility] Wcehjotqtc2[address] [place] [address]Dr. Ricardo Rocha Potassium [Moles/Vol] 3.4 mmol/L Critically low 3.5-5.1 [facility] Comment on above: Performed By: #### C MP ####[facility] Xybrxplzcp[address] [place] [address]Dr. Ricardo Rocha Protein [Mass/Vol] 6.2 g/dL Critically low 6.4-8.2 Th [facility] Comment on above: Performed By: #### C MP ####[facility] Bmvc[address]jzev[address] [place] [address]Dr. Ricardo Rocha Sodium [Moles/Vol] 135 mmol/L Critically low 136-145 Th [facility] Comment on above: Performed By: #### C MP ####[facility] Xkwtituspq[address] [place], [place] [address]Dr. Ricardo Rocha Urea nitrogen [Mass/Vol] 33.0 mg/dL Critically high 7.0-18.0 [facility] Comment on above: Performed By: #### C MP ####[facility] Ulijecczdr[address] [place], [place] [address]Dr. Ricardo Rocha Urea nitrogen/Creatinine [Mass ratio] 18.8 mg/mg Normal [facility] Comment on above: Performed By: #### C MP ####[facility] Tryaflkkce1424[address] [place], [place] [address]Dr. Nanomarcial Rocha VANCOMYCIN TROUGHon 06-13-20 22 VANCOMYCIN TROUGH 15.2 ug/ml Normal 5.0-20.0 [facility] Comment on above: Performed By: #### V ANCT ####[facility] Pjhmygagyc[address] [place], [place] [address]Dr. Ricardo Rocha VIT B12 AND FOLATEon 022 Cobalamin (Vitamin B12) [Mass/Vol] 874.0 pg/mL Normal 193.0-986.0 [facility] Comment on above: Performed By: #### F ETIBC, B12FOL ####[facility] B[address]xzqpsct[address] [place] [address]Dr. Ricardo Rocha FOLATE 6.60 ng/mL Critically low 8.60-58.90 [facility] Comment on above: Performed By: #### F ETIBC, B12FOL ####[facility] Iagxytoslh[address] [place], [place] [address]Dr. Nanomarcial Rocha XR FOOT LT MIN 3 VIEWSon XR FOOT LT MIN 3 VIEWS Normal [facility] CBC W MANUAL DIFFon 06-12-20 22 ATYPICAL LYMPH # Normal The [facility] Comment on above: Performed By: #### C DWAINE ####[facility] Jos[address]vun[address] [place] [id number]. Ricardo Rocha ATYPICAL LYMPH % Normal The [facility] Comment on above: Performed By: #### C DWAINE ####[facility] Vnhphhmylv[address] [place] [phone]. Ricardo Rocha BAND # 1.9 103/ul Critically high 0.0-0.3 The [facility] Comment on above: Performed By: #### C DWAINE ####[facility] Axxqdusqcw8[address] [place] [phone]. Nanolan Rocha BAND % 17 % Critically high 0-5 [facility] Comment on above: Performed By: #### C DWAINE ####[facility] Vdcuithmay[address] [place], [place] [address]Dr. Ricardo Rocha BASOM # 0.00 103/ul Normal 0.00-0.10 [facility] Comment on above: Performed By: #### C DWAINE ####[facility] Djzimnoaro[address] [place], [place] [address]Dr. Ricardo Rocha BASOM % 0.0 % Critically low 0.2-2.0 The [facility] Comment on above: Performed By: #### C DWAINE ####[facility] Vzq[address]pcueft[address] [place] [address]Dr. Ricardo Rocha BLAST # Normal [facility] Comment on above: Performed By: #### C DWAINE ####[facility] Yuvkqfzebm360[address] [place] [phone]. Ricardo Rocha BLAST % Normal [facility] Comment on above: Performed By: #### C DWAINE ####[facility] Ldzljiiqqs[address] [place], [place] [address]Dr. Ricardo Rocha CORRECTED WBC Normal 4.0-11.0 The [facility] Comment on above: Performed By: #### C DWAINE ####[facility] Nlclhqqyus[address] [place], [place] [address]Dr. Ricardo Rocha EOS # 0.00 103/ul Normal 0.00-0.70 [facility] Comment on above: Performed By: #### C BCMAN ####[facility] Wnpzmlpgcf10[address] [place] [phone]. Ricardo Rocha EOS% 0.0 % Critically low 0.9-7.0 [facility] Comment on above: Performed By: #### C BCMAN ####[facility] Mriqyxcvil98[address] [place] [phone]. Ricardo Rocha HCT 28.0 % Critically low 36.0-48.0 [facility] Comment on above: Performed By: #### C BCMAN ####[facility] Eoyesuxkux41[address] [place] [phone]. Ricardo Rocha HGB 8.6 g/dl Critically low 12.0-16.0 [facility] Comment on above: Performed By: #### C BCRED ####[facility] Ylogchwbux[address] [place] [address]Dr. Riacrdo Rocha HYPOCHROMASIA SLIGHT Normal [facility] Comment on above: Performed By: #### C BCRED ####[facility] Puynefrjpn0[address] [place] [phone]. Ricardo Rocha LYMPHM # 0.77 103/ul Critically low 1.20-3.80 The [facility] Comment on above: Performed By: #### C BCRED ####[facility] Ziltnzqoam[address] [place] [phone]. Ricardo Rocha LYMPHM% 7.0 % Critically low 20.5-60.0 [facility] Comment on above: Performed By: #### C BCRED ####[facility] Atbsezqdhq05[address] [place] [phone]. Ricardo Rocha MCH 25.1 pg Critically low 26.7-34.0 [facility] Comment on above: Performed By: #### C BCRED ####[facility] Qvexyacjmp4844 [place] [phone]. Ricardo Rocha MCHC 30.7 g/dl Normal 29.9-35.2 [facility] Comment on above: Performed By: #### Esteabn ISIDRO ####[facility] Znxxsqumcl5872 [place] [phone]. Ricardo Rocha MCV 81.9 fL Normal 81.0-99.0 [facility] Comment on above: Performed By: #### C DWAINE ####[facility] [address]sp[address] [place] [phone]. Ricardo Rocha METAMYELOCYTE # Normal The [facility] Comment on above: Performed By: #### C DWAINE ####[facility] Ujhybwebxu5[address] [place] [phone]. Ricardo Rocha METAMYELOCYTE % Normal The [facility] Comment on above: Performed By: #### C DWAINE ####[facility] Bbdvepslmi[address] [place] [address]Dr. Ricardo Rocha MONOM# 0.11 103/ul Critically low 0.30-0.80 [facility] Comment on above: Performed By: #### Esteban ISIDRO ####[facility] Qujlgpozok[address] [place], [place] [address]Dr. Ricardo Rocha MONOM% 1.0 % Critically low 1.7-12.0 [facility] Comment on above: Performed By: #### Esteban ISIDRO ####[facility] Fiqvihrqin99[address] [place] [phone]. Ricardo Rocha MPV 12.6 fL Normal 9.5-13.5 [facility] Comment on above: Performed By: #### Esteban ISIDRO ####[facility] Gvjnpwvbzy9274 [place] [phone]. Ricardo Rocha MYELOCYTE # Normal The [facility] Comment on above: Performed By: #### Esteban ISIDRO ####[facility] Cfzykeyenf[address] [place], [place] [address]Dr. Ricardo Rocha MYELOCYTE % Normal The [facility] Comment on above: Performed By: #### Esteban ISIDRO ####[facility] [address]zzkqxztga[address] [place], [place] [address]Dr. Ricardo Rocha NRBC Normal [facility] Comment on above: Performed By: #### Esteban ISIDRO ####[facility] Gugdqaagam[address] [place], [place] [address]Sr. Ricardo Rocha PLT 140 103/ul Critically low 150-450 [facility] Comment on above: Performed By: #### C DWAINE ####[facility] Owvhgepeks9383 [place], [place] [address]Gj. Ricardo Rocha RBC 3.42 106/ul Critically low 4.20-5.40 [facility] Comment on above: Performed By: #### C DWAINE ####[facility] Frmzxwalus6659 [place], [place] [address]Xp. Ricardo Rocha RDW 13.7 % Normal 11.0-15.0 [facility] Comment on above: Performed By: #### C DWAINE ####[facility] Cmirzedjmz3790 [place], [place] [address]Rm. Ricardo Rocha SEG # 8.25 103/ul Critically high 1.40-6.[address] [facility] Comment on above: Performed By: #### C DWAINE ####[facility] Sagcryohzx7428 [place], [place] [address]Iu. Ricardo Rocha SEG % 75.0 % Normal 43.0-75.0 [facility] Comment on above: Performed By: #### C DWAINE ####[facility] Alqpawmuwj7150 [place], [place] [address]Gh. Ricardo Rocha WBC 11.0 103/ul Normal 4.0-11.0 [facility] Comment on above: Performed By: #### C DWAINE ####[facility] Fsauhisgqd4310 [place], [place] [address]Fi. Ricardo Rocha POINT OF CARE GLUCOSEon 10-2 Glucose [Mass/Vol] 200 mg/dL Critically high 74-106 [facility] Comment on above: Performed By: #### P OCGLUC ####[facility] Tktvmsfcjt0420 [place], [place] [address]Ih. Ricardo Rocha Glucose [Mass/Vol] 165 mg/dL Critically high 74-106 [facility] Comment on above: Performed By: #### P OCGLUC ####[facility] Rzivwxjkxl32[address] [place] [address]Dr. Nanomarcial Aj Glucose [Mass/Vol] 152 mg/dL Critically high 74-106 [facility] Comment on above: Performed By: #### P OCGLUC ####[facility] Xyollqrrzp4343 [place] [address]Dr. Ricardo Rocha Glucose [Mass/Vol] 154 mg/dL Critically high 74-106 [facility] Comment on above: Performed By: #### P OCGLUC ####[facility] Vjtqlgdreq[address] [place], [place] [address]Dr. Ricardo Rocha PROF 14(COMP METB)on 022 Albumin [Mass/Vol] 1.9 g/dL Critically low 3.4-5.0 Th [facility] Comment on above: Performed By: #### C MP ####[facility] Jzftqcxzkg[address] [place], [place] [address]Dr. Ricardo Rocha Albumin/Globulin [Mass ratio] 0.4 {ratio} Normal [facility] Comment on above: Performed By: #### C MP ####[facility] Nwfofxzdim16[address] [place], [place] [address]Dr. Ricardo Rocha ALP [Catalytic activity/Vol] 68 U/L Normal 46-116 [facility] Comment on above: Performed By: #### C MP ####[facility] Gtbzmspsrc[address] [place], [place] [address]Dr. Ricardo Rocha ALT [Catalytic activity/Vol] 16 U/L Normal 14-59 [facility] Comment on above: Performed By: #### C MP ####[facility] Qqqnczczqw[address] [place], [place] [address]Dr. Ricardo Rocha Anion gap [Moles/Vol] 15.1 mmol/L Normal [facility] Comment on above: Performed By: #### C MP ####[facility] Sztgedqskt8[address] [place], [place] [address]Dr. Ricardo Rocha AST [Catalytic activity/Vol] 26 U/L Normal 15-37 [facility] Comment on above: Performed By: #### C MP ####[facility] Ztclrfvaiq57[address] [place] [address]Dr. Ricardo Rocha Bilirubin [Mass/Vol] 0.3 mg/dL Normal 0.2-1.0 [facility] Comment on above: Performed By: #### C MP ####[facility] Rthaolkfal69[address] [place], [place] [address]Dr. Ricardo Rocha Calcium [Mass/Vol] 8.0 mg/dL Critically low 8.5-10.1 Th [facility] Comment on above: Performed By: #### C MP ####[facility] Onefjkhhrb[address] [place], [place] [address]Dr. Ricardo Rocha Chloride [Moles/Vol] 110 mmol/L Critically high 98-107 [facility] Comment on above: Performed By: #### C MP ####[facility] Qqwqtilprj99[address] [place], [place] [address]Dr. Ricardo Rocha CO2 [Moles/Vol] 18.0 mmol/L Critically low 21.0-32.0 [facility] Comment on above: Performed By: #### C MP ####[facility] Fiotplykvs11[address] [place], [place] [address]Dr. Ricardo Rocha Creatinine [Mass/Vol] 1.97 mg/dL Critically high 0.55-1.02 [facility] Comment on above: Performed By: #### C MP ####[facility] Fowiqewxsn20[address] [place], [place] [address]Dr. Ricardo Aj EGFR-AF [place]THER[place] 31 mL/min/1.73m2 Critically low >=60 [facility] Comment on above: Performed By: #### C MP ####[facility] V[address]ow[address]xug[address] [place], [place] [address]Dr. Ricardo Aj EGFR-NON AF [place] 26 mL/min/1.73m2 Critically low >=60 [facility] Comment on above: Performed By: #### C MP ####[facility] Fihipmhoqf7[address] [place], [place] [address]Dr. Ricardo Aj Globulin (S) [Mass/Vol] 5.2 g/dL Normal [facility] Comment on above: Performed By: #### C MP ####[facility] Xrdtpwucrj1805 [place] [id number]. Ricardo Rocha Glucose [Mass/Vol] 146 mg/dL Critically high 74-106 [facility] Comment on above: Performed By: #### C MP ####[facility] Ntaqoiatjx9926 [place] [address]Dr. Ricardo Rocha Potassium [Moles/Vol] 3.1 mmol/L Critically low 3.5-5.1 [facility] Comment on above: Performed By: #### C MP ####[facility] Vkeoofmnmj3982 [place] [address]Dr. Ricardo Rocha Protein [Mass/Vol] 7.1 g/dL Normal 6.4-8.2 [facility] Comment on above: Performed By: #### C MP ####[facility] Sufhksyahi[address] [place], [place] [address]Dr. Ricardo Rocha Sodium [Moles/Vol] 140 mmol/L Normal 136-145 [facility] Comment on above: Performed By: #### C MP ####[facility] Jklbouhqqy5[address] [place] [address]Dr. Ricardo Rocha Urea nitrogen [Mass/Vol] 30.0 mg/dL Critically high 7.0-18.0 [facility] Comment on above: Performed By: #### C MP ####[facility] Ggscnkmxth06[address] [place] [address]Dr. Nanomarcial Aj Urea nitrogen/Creatinine [Mass ratio] 15.2 mg/mg Normal [facility] Comment on above: Performed By: #### C MP ####[facility] Wbnurbkmix2995 [place] [address]Dr. Nanomarcial Aj CBC W MANUAL DIFFon 06-11- 22 ATYPICAL LYMPH # Normal [facility] Comment on above: Performed By: #### C BCMAN ####[facility] Irvzqrgtya10[address] [place] [address]Dr. Ricardo Rocha ATYPICAL LYMPH % Normal [facility] Comment on above: Performed By: #### C BCMAN ####[facility] Rlcdbqugol[address] [place], [place] [address]Dr. Ricardo Rocha BAND # 1.1 103/ul Critically high 0.0-0.3 The [facility] Comment on above: Performed By: #### C BCMAN ####[facility] Fffmxhxnvn95[address] [place] [address]Dr. Ricardo Rocha BAND % 12 % Critically high 0-5 The [facility] Comment on above: Performed By: #### C BCMAN ####[facility] Awcsjpewxt5[address] [place] [address]Dr. Ricardo Rocha BASOM # 0.00 103/ul Normal 0.00-0.10 [facility] Comment on above: Performed By: #### C BCRED ####[facility] Pkdlwxuoxj95[address] [place] [address]Dr. Ricardo Rocha BASOM % 0.0 % Critically low 0.2-2.0 The [facility] Comment on above: Performed By: #### C BCRED ####[facility] Wpqgmgxbnb[address] [place], [place] [address]Dr. Ricardo Rocha BLAST # Normal [facility] Comment on above: Performed By: #### C BCRED ####[facility] Fq[address]qlmowpt9[address] [place] [address]Dr. Ricardo Rocha BLAST % Normal [facility] Comment on above: Performed By: #### C BCRED ####[facility] Qlolhrazkr27[address] [place] [address]Dr. Ricardo Rocha CORRECTED WBC Normal 4.0-11.0 The [facility] Comment on above: Performed By: #### C BCRED ####[facility] Ufaaufjuhq45[address] [place] [address]Dr. Ricardo Rocha EOS # 0.00 103/ul Normal 0.00-0.70 [facility] Comment on above: Performed By: #### C BCMAN ####[facility] Niikllahfw[address] [place], [place] [address]Dr. Ricardo Rocha EOS% 0.0 % Critically low 0.9-7.0 The [facility] Comment on above: Performed By: #### C BCRED ####[facility] Ceyaueczgr14[address] [place], [place] [address]Ed. Ricardo Rocha HCT 32.6 % Critically low 36.0-48.0 [facility] Comment on above: Performed By: #### C DWAINE ####[facility] Hdrdxjxoue2533 [place], [place] [address]Hk. Ricardo Rocha HGB 10.5 g/dl Critically low 12.0-16.0 [facility] Comment on above: Performed By: #### C DWAINE ####[facility] Grplinupfe2117 [place], [place] [address]Bp. Ricardo Rocha LYMPHM # 0.46 103/ul Critically low 1.20-3.80 The [facility] Comment on above: Performed By: #### C DWAINE ####[facility] Ciiqvsuagi0672 [place], [place] [address]Yf. Ricardo Rocha LYMPHM% 5.0 % Critically low 20.5-60.0 The [facility] Comment on above: Performed By: #### C DWAINE ####[facility] Ajvuuyvfqf2836 [place], [place] [address]Ws. Ricardo Rocha MCH 25.3 pg Critically low 26.7-34.0 The [facility] Comment on above: Performed By: #### C DWAINE ####[facility] Zmhbmptmpg2413 [place] [id number]. Ricardo Rocha MCHC 32.2 g/dl Normal 29.9-35.2 The [facility] Comment on above: Performed By: #### C DWAINE ####[facility] Ovofolihwj6425 [place], [place] [address]Ba. Ricardo Rocha MCV 78.6 fL Critically low 81.0-99.0 The [facility] Comment on above: Performed By: #### C DWAINE ####[facility] Reaycebhfm6205 [place] [id number]. Ricardo Rocha METAMYELOCYTE # Normal The [facility] Comment on above: Performed By: #### C DWAINE ####[facility] Uykoarwjon3785 [place] [address]Dr. Ricardo Rocha METAMYELOCYTE % Normal The [facility] Comment on above: Performed By: #### C DWAINE ####[facility] Kzdngthguv1657 [place] [address]Dr. Ricardo Rocha MONOM# 0.28 103/ul Critically low 0.30-0.80 [facility] Comment on above: Performed By: #### C DWAINE ####[facility] Dwwacevwad1712 [place] [address]Dr. Ricardo Rocha MONOM% 3.0 % Normal 1.7-12.0 [facility] Comment on above: Performed By: #### C DWAINE ####[facility] Iyxndqdurb4507 [place] [address]Dr. Ricardo Aj MPV 11.4 fL Normal 9.5-13.5 [facility] Comment on above: Performed By: #### C DWAINE ####[facility] Lgmtwpdvqy[address] [place], [place] [address]Dr. Ricardo Aj MYELOCYTE # Normal [facility] Comment on above: Performed By: #### C DWAINE ####[facility] Feypqszvti[address] [place], [place] [address]Dr. Ricardo Aj MYELOCYTE % Normal [facility] Comment on above: Performed By: #### C DWAINE ####[facility] Iyrhlnfwkc3151 [place] [address]Dr. Ricardo Aj NRBC Normal [facility] Comment on above: Performed By: #### C DWAINE ####[facility] Opbjcqhhxi7067 [place] [id number]. Ricardo Rocha PLT 154 103/ul Normal 150-450 [facility] Comment on above: Performed By: #### C DWAINE ####[facility] Ihwwzvkxqd[address] [place], [place] [address]Dr. Nanomarcial Aj RBC 4.15 106/ul Critically low 4.20-5.40 [facility] Comment on above: Performed By: #### C DWAINE ####[facility] Drpsxexxam[address] [place], [place] [address]Dr. Ricardo Rocha RDW 12.8 % Normal 11.0-15.0 [facility] Comment on above: Performed By: #### C DWAINE ####[facility] Ppvmjvjuyq3716 [place] [id number]. Ricardo Rocha SEG # 7.36 103/ul Critically high 1.40-6.[address] [facility] Comment on above: Performed By: #### C BCMAN ####[facility] Ylvkmtmiwn8690 [place], [place] [address]Kc. Ricardo Rocha SEG % 80.0 % Critically high 43.0-75.0 [facility] Comment on above: Performed By: #### C DWAINE ####[facility] Idjtphfthk4241 [place] [id number]. Ricardo Rocha WBC 9.2 103/ul Normal 4.0-11.0 [facility] Comment on above: Performed By: #### C DWAINE ####[facility] Oulopvihvv4703 [place] [phone]. Ricardo Rocha CT HEAD WO CONon 06-11-2022 CT HEAD WO CON Normal The [facility] CULTURE ANAEROBICon 06-11-20 CULTURE ANAEROBIC Culture Observations : NO GROWTH OF ANAEROBES AT 72 HOURS. Normal [facility] Comment on above: Performed By: #### A NACX ####[facility] Ecslxwgyrr4890 [place], [place] [address]El. Ricardo Rocha CULTURE ANAEROBIC Culture Observations : NO GROWTH OF ANAEROBES AT 72 HOURS. Normal [facility] Comment on above: Performed By: #### A NACX ####[facility] Brvmdcqbxy0680 [place], [place] [address]Ya. Ricardo Rocha CULTURE BLOODon 06-11-2022 Microscopic examination of blood, culture Culture Observations: Aerobic bottle positive only. Culture Observations: No growth at 5 days in anaerobic bottle Culture Observations: See for Susceptibility testing. Isolate 1 Staphylococcus aureus Growth of Normal [facility] Comment on above: Performed By: #### B LDCX2 ####[facility] Umuasoardd7701 [place] [id number]. Ricardo Rocha CULTURE URINEon 06-11-2022 CULTURE URINE Culture Observations : LIGHT GROWTH OF MIXED GENITAL SHAHLA. NO POTENTIAL PATHOGENS SEEN. Normal The [facility] Comment on above: Performed By: #### U RCX ####[facility] Mqoovzplxb7[address] [place] [address]Dr. Ricardo Rocha [facility]22 SARS-CoV-2 (COVID-19) RNA ADRIEL+probe Ql (Unsp spec) Not detected Normal NOT DETECTED The [facility] Comment on above: Result Comment: When diagnostic testing is negative, the possibility of a false negative should be considered inthe context of a patient's recent exposures and the presence of clinical signs and symptomsconsistent with SARS-CoV-2.This test is not yet approved or cleared by the [place] FDA. When there are no FDA-approved or cleared tests available, and other criteria are met, FDA can make tests available under an emergency access mechanism called an Emergency Use Authorization (EUA). The EUA for this test is supported by the Quality Control Systems Manager of Health and Human Service's declaration that circumstances exist to justify the emergency use of in vitro diagnostics for the detection and/or diagnosis of the virus that causes COVID-19. This EUA will remain in effect for the duration of the COVID-19 declaration justifying emergency of IVDs, unless it is terminated or revoked by the FDA (after which the test may no longer be used). Performed By: #### C VDTBH ####[facility] Qrvsqfyesq5[address] [place] [address]Dr. Ricardo Rocha ER URINE PROFILEon 2 Bilirubin Ql (U) Negative Normal NEGATIVE The [facility] Comment on above: Performed By: #### SHAYNA ELENA ####[facility] Tcsdoqgvia6767 [place] [address]Dr. Ricardo Rocha Clarity (U) CLEAR Normal CLEAR The [facility] Comment on above: Performed By: #### E SHAYNA HINOJOSA ####[facility] Pmcsahbckm3039 [place] [phone]. Ricardo Rocha Color (U) LT. YELLOW Normal YELLOW The [facility] Comment on above: Performed By: #### E JOSLYN HINOJOSARO ####[facility] Branrgqzld8362 [place] [address]Dr. Ricardo SWIFT A micrscopic examination will be performed if indicated. Normal [facility] Comment on above: Performed By: #### SHAYNA ELENA ####[facility] Mhdjyddqol5851 [place] [address]Dr. Ricardo Rocha Glucose Ql (U) >1000 Abnormal NEGATIVE The [facility] Comment on above: Performed By: #### JOSLYN ELENARO ####[facility] Vfsgoemzyy0341 [place] [address]Dr. Ricardo Rocha Hemoglobin Ql (U) LARGE Abnormal NEGATIVE The [facility] Comment on above: Performed By: #### JOSLYN ELENARO ####[facility] Prearsurnz[address] [place], [place] [address]Dr. Ricardo Rocha Ketones Ql (U) 15 mg/dl Abnormal NEGATIVE [facility] Comment on above: Performed By: #### JOSLYN ELENARO ####[facility] [address]ukfihaw[address] [place], [place] [address]Dr. Ricardo Rocha LEUKOCYTES Negative Normal NEGATIVE [facility] Comment on above: Performed By: #### SHAYNA ELENA ####[facility] Cchxawzpwj[address] [place], [place] [address]Dr. Ricardo Rocha Nitrite Ql (U) Negative Normal NEGATIVE [facility] Comment on above: Performed By: #### JOSLYN ELENARO ####[facility] Tefblygxvr[address] [place], [place] [address]Dr. Ricardo Rocha pH (U) 6.0 [pH] Normal 5-9 [facility] Comment on above: Performed By: #### JOSLYN ELENARO ####[facility] Cdcjwudbur[address] [place], [place] [address]Dr. Ricardo Rocha Protein (U) [Mass/Vol] 100 mg/dL Abnormal NEGATIVE/ TRACE The [facility] Comment on above: Performed By: #### SHAYNA ELENA ####[facility] Hwqvpdpojg[address] [place], [place] [address]Dr. Ricardo Rocha SPEC GRAVITY 1.020 Normal 1.005-<=1.02 5 [facility] Comment on above: Performed By: #### SHAYNA ELENA ####[facility] Pcmokuhbme[address] [place], [place] [address]Dr. Ricardo Rocha UR MICRO IND INDICATED Normal [facility] Comment on above: Performed By: #### SHAYNA ELENA ####[facility] Gkpgjvwchl[address] [place], [place] [address]Dr. Ricardo Rocha Urobilinogen Qn (U) 0.2 {Madeleine'U}/dL Normal 0.2 - 1. 0 [facility] Comment on above: Performed By: #### SHAYNA ELENA ####[facility] Yfpurouhgc[address] [place], [place] [address]Dr. Ricardo Rocha GRAM STAINon 06-11-2022 DIPHTHEROIDS Normal [facility] Comment on above: Performed By: #### G STAIN ####[facility] Wgymnfedmh[address] [place], [place] [address]Dr. Ricardo Rocha EPITHELIALS Normal [facility] Comment on above: Performed By: #### G STAIN ####[facility] Vxjvprgvzf60[address] [place], [place] [address]Dr. Ricardo Rocha FUNGAL ELEMENTS Normal The [facility] Comment on above: Performed By: #### G STAIN ####[facility] Ddfqmmgajo[address] [place], [place] [address]Dr. Ricardo Rocha GRAM NEG BACILLI Normal The [facility] Comment on above: Performed By: #### G STAIN ####[facility] Gvzrechtem4[address] [place], [place] [address]Dr. Ricardo Rocha GRAM NEG DIPPLOCOCCI Normal [facility] Comment on above: Performed By: #### G STAIN ####[facility] Qvuzfrdscz4[address] [place], [place] [address]Dr. Ricardo Rocha GRAM POS BACILLI Normal The [facility] Comment on above: Performed By: #### G STAIN ####[facility] Npqjfjibic[address] [place], [place] [address]Dr. Ricardo Rocha GRAM POSITIVE COCCI MANY Normal The [facility] Comment on above: Performed By: #### G STAIN ####[facility] Jlmallmybx0539 [place] [address]Dr. Ricardo Rocha GRAM STAIN SOURCE Left great toe tissu e after washout-clean Normal [facility] Comment on above: Performed By: #### G STAIN ####[facility] Fjgqicgqiu34[address] [place] [address]Dr. Ricardo Rocha GS_DIPTH Normal [facility] Comment on above: Performed By: #### G STAIN ####[facility] Lturxcevwe[address] [place], [place] [address]Dr. Ricardo Rocha WBC RARE Normal [facility] Comment on above: Performed By: #### G STAIN ####[facility] S[address]unzpwxtr[address] [place], [place] [address]Dr. Ricardo Rocha DIPHTHEROIDS Normal [facility] Comment on above: Performed By: #### G STAIN ####[facility] Gdognzgktt54[address] [place], [place] [address]Dr. Ricardo Rocha EPITHELIALS Normal [facility] Comment on above: Performed By: #### G STAIN ####[facility] Itjpcbffam[address] [place], [place] [address]Dr. Ricardo Rocha FUNGAL ELEMENTS Normal The [facility] Comment on above: Performed By: #### G STAIN ####[facility] Levhykprxe[address] [place], [place] [address]Dr. Ricardo Rocha GRAM NEG BACILLI Normal The [facility] Comment on above: Performed By: #### G STAIN ####[facility] Jpgjyspubr[address] [place], [place] [address]Dr. Ricardo Rocha GRAM NEG DIPPLOCOCCI Normal The [facility] Comment on above: Performed By: #### G STAIN ####[facility] Tuqhjmcpxx[address] [place], [place] [address]Dr. Ricardo Rocha GRAM POS BACILLI Normal The [facility] Comment on above: Performed By: #### G STAIN ####[facility] Mcptnhagxe[address]166[address] [place], [place] [address]Dr. Ricardo Rocha GRAM POSITIVE COCCI RARE Normal The [facility] Comment on above: Performed By: #### G STAIN ####[facility] Vgswesnecu2985 [place] [address]Dr. Ricardo Rocha GRAM STAIN SOURCE Left great toe Normal The [facility] Comment on above: Performed By: #### G STAIN ####[facility] Obkzlrpwim6977 [place] [id number]. Ricardo Rocha GS_DIPTH Normal [facility] Comment on above: Performed By: #### G STAIN ####[facility] Kyzwzsgoof2252 [place] [address]Dr. Ricardo Rocha WBC RARE Normal [facility] Comment on above: Performed By: #### G STAIN ####[facility] Spzdmfvbii0522 [place] [address]Dr. Ricardo Rocha DIPHTHEROIDS Normal [facility] Comment on above: Performed By: #### G STAIN ####[facility] [address]ctqkexq[address] [place], [place] [address]Dr. Ricardo Rocha EPITHELIALS Normal [facility] Comment on above: Performed By: #### G STAIN ####[facility] [address] [place] [address]Dr. Ricardo Rocha FUNGAL ELEMENTS Normal The [facility] Comment on above: Performed By: #### G STAIN ####[facility] [address] [place] [address]Dr. Ricardo Rocha GRAM NEG BACILLI Normal The [facility] Comment on above: Performed By: #### G STAIN ####[facility] [address] [place] [address]Dr. Ricardo Rocha GRAM NEG DIPPLOCOCCI Normal The [facility] Comment on above: Performed By: #### G STAIN ####[facility] Mwngesjxal[address] [place], [place] [address]Dr. Ricardo Rocha GRAM POS BACILLI Normal The [facility] Comment on above: Performed By: #### G STAIN ####[facility] [address]ze[address] [place] [address]Dr. Ricardo Rocha GRAM POSITIVE COCCI FEW Normal The [facility] Comment on above: Performed By: #### G STAIN ####[facility] Itpairyijj[address] [place] [address]Dr. Nanomarcial Aj GRAM STAIN SOURCE Left great toe abscess Normal [facility] Comment on above: Performed By: #### G STAIN ####[facility] Nfm[address]xftlrz[address] [place] [address]Dr. Nanomarcial Aj GS_DIPTH Normal The [facility] Comment on above: Performed By: #### G STAIN ####[facility] Tcjzhtoldz[address] [place], [place] [address]Dr. Ricardo Rocha WBC FEW Normal [facility] Comment on above: Performed By: #### G STAIN ####[facility] Etanjuxaop[address] [place], [place] [address]Dr. Nanomarcial Aj LACTATE/LACTIC ACIDon 2021 Lactate [Moles/Vol] 2.2 mmol/L Critically high 0.4-1.9 [facility] Comment on above: Performed By: #### L ACT ####[facility] Doerevdbaj[address] [place], [place] [address]Dr. Ricardo Aj POINT OF CARE GLUCOSEon 05-22 Glucose [Mass/Vol] 133 mg/dL Critically high -106 [facility] Comment on above: Performed By: #### P OCGLUC ####[facility] Oyuhisvbak[address] [place], [place] [address]Dr. Ricardo Rocha Glucose [Mass/Vol] 215 mg/dL Critically high 74-106 [facility] Comment on above: Performed By: #### P OCGLUC ####[facility] Hnlgapnilv3464[address] [place], [place] [address]Dr. Ricardo Rocha Glucose [Mass/Vol] 207 mg/dL Critically high -106 [facility] Comment on above: Performed By: #### P OCGLUC ####[facility] Gtpbussjzw[address] [place], [place] [address]Dr. Ricardo Rocha Glucose [Mass/Vol] 314 mg/dL Critically high -106 [facility] Comment on above: Performed By: #### P OCGLUC ####[facility] [address] [place] [address]Dr. Ricardo Rocha Glucose [Mass/Vol] 496 mg/dL Critically high 74-106 [facility] Comment on above: Performed By: #### P OCGLUC ####[facility] [address]xpwapb[address] [place] [address]Dr. Ricardo Rocha Glucose [Mass/Vol] 561 mg/dL Critically high 74-106 [facility] Comment on above: Result Comment: Prev iously Confirmed Performed By: #### P OCGLUC ####[facility] Zamxzdsorb[address] [place] [address]Dr. Ricardo Rocha PROF 14(COMP METB)on 022 Albumin [Mass/Vol] 2.4 g/dL Critically low 3.4-5.0 Th [facility] Comment on above: Performed By: #### C MP ####[facility] Lictqehrha[address] [place], [place] [address]Dr. Ricardo Rocha Albumin/Globulin [Mass ratio] 0.4 {ratio} Normal [facility] Comment on above: Performed By: #### C MP ####[facility] Yueptebdpo[address] [place], [place] [address]Dr. Ricardo Rocha ALP [Catalytic activity/Vol] 82 U/L Normal 46-116 [facility] Comment on above: Performed By: #### C MP ####[facility] Rndhkxxvzo256[address] [place], [place] [address]Dr. Ricardo Rocha ALT [Catalytic activity/Vol] 12 U/L Critically low 14-59 [facility] Comment on above: Performed By: #### C MP ####[facility] Qdnifums[address] [place] [address]Dr. Ricardo Rocha Anion gap [Moles/Vol] 15.1 mmol/L Normal [facility] Comment on above: Performed By: #### C MP ####[facility] Lpuedvprvz[address] [place], [place] [address]Dr. Ricardo Rocha AST [Catalytic activity/Vol] 14 U/L Critically low 15-37 [facility] Comment on above: Performed By: #### C MP ####[facility] R[address]tailbos[address] [place] [id number]. Ricardo Rocha Bilirubin [Mass/Vol] 0.4 mg/dL Normal 0.2-1.0 The [facility] Comment on above: Performed By: #### C MP ####[facility] Qvqctyezwo[address] [place] [id number]. Ricardo Rocha Calcium [Mass/Vol] 8.8 mg/dL Normal 8.5-10.1 [facility] Comment on above: Performed By: #### C MP ####[facility] [address] [place] [id number]. Ricardo Rocha Chloride [Moles/Vol] 105 mmol/L Normal 98-107 [facility] Comment on above: Performed By: #### C MP ####[facility] [address] [place] [address]Dr. Ricardo Rocha CO2 [Moles/Vol] 21.2 mmol/L Normal 21.0-32.[address] [facility] Comment on above: Performed By: #### C MP ####[facility] [address] [place] [address]Dr. Ricardo Rocha Creatinine [Mass/Vol] 2.03 mg/dL Critically high 0.55-1.02 [facility] Comment on above: Performed By: #### C MP ####[facility] [address]ek[address] [place] [address]Dr. Ricardo Rocha EGFR-AF [place] 30 mL/min/1.73m2 Critically low >=60 The [facility] Comment on above: Performed By: #### C MP ####[facility] Dak[address]hde[address] [place] [id number]. Ricardo Rocha EGFR-NON AF [place] 25 mL/min/1.73m2 Critically low >=60 The [facility] Comment on above: Performed By: #### C MP ####[facility] [address]xaz[address] [place], [place] [id number]. Ricardo Rocha Globulin (S) [Mass/Vol] 5.7 g/dL Normal [facility] Comment on above: Performed By: #### C MP ####[facility] [address]rpr[address] [place] [phone]. Ricardo Rocha Glucose [Mass/Vol] 309 mg/dL Critically high 74-106 [facility] Comment on above: Performed By: #### C MP ####[facility] [address] [place] [phone]. Ricardo Rocha Potassium [Moles/Vol] 3.3 mmol/L Critically low 3.5-5.1 [facility] Comment on above: Performed By: #### C MP ####[facility] Kos[address]ys[address] [place] [phone]. Ricardo Rocha Protein [Mass/Vol] 8.1 g/dL Normal 6.4-8.2 [facility] Comment on above: Performed By: #### C MP ####[facility] [address]ml[address] [place] [address]Dr. Ricardo Rocha Sodium [Moles/Vol] 138 mmol/L Normal 136-145 [facility] Comment on above: Performed By: #### C MP ####[facility] [address] [place] [address]Dr. Ricardo Rocha Urea nitrogen [Mass/Vol] 37.0 mg/dL Critically high 7.0-18.0 [facility] Comment on above: Performed By: #### C MP ####[facility] [address] [place] [address]Dr. Ricardo Rocha Urea nitrogen/Creatinine [Mass ratio] 18.2 mg/mg Normal [facility] Comment on above: Performed By: #### C MP ####[facility] [address] [place] [phone]. Ricardo Rocha SED RATE WESTERGRENon 2021 SED RATE >130 Critically high <=30 The [facility] Comment on above: Performed By: #### S EDR ####[facility] [address] [place] [address]Dr. Ricardo Rocha URINE MICROSCOPIC ONLYon AMORPHOUS CRYSTALS MODERATE Normal [facility] Comment on above: Performed By: #### E RUR, UMICRO ####[facility] [address] [place] [address]Dr. Ricardo Rocha BACTERIA MODERATE Abnormal NONE SEEN The [facility] Comment on above: Performed By: #### JOSLYN ELENARO ####[facility] [address]xc[address] [place] [address]Dr. Ricardo Rocha Bacteria identified Cx Nom (U) INDICATED Normal The [facility] Comment on above: Performed By: #### LOLY ELENAICRO ####[facility] [address] [place] [address]Dr. Ricardo Rocha CAST NONE SEEN Normal NONE SEEN The [facility] Comment on above: Performed By: #### JOSLYN ELENARO ####[facility] [address]xkd[address] [place] [address]Dr. Ricardo Rocha Crystals LM Nom (Urine sed) SEEN Abnormal NONE SEEN The [facility] Comment on above: Performed By: #### JOSLYN ELENARO ####[facility] Qlrxscpgnh[address] [place], [place] [address]Dr. Ricardo Rocha Epithelial cells LM Ql (Urine sed) NONE SEEN Normal NONE SEEN /RARE The [facility] Comment on above: Performed By: #### JOSLYN ELENARO ####[facility] G[address]suesjxv[address] [place], [place] [address]Dr. Ricardo Rocha MUCOUS NONE SEEN Normal NONE SEEN The [facility] Comment on above: Performed By: #### JOSLYN ELENARO ####[facility] [address]vmflciagx[address] [place], [place] [address]Dr. Ricardo Rocha RBC 2-5 Abnormal 0-2 The [facility] Comment on above: Performed By: #### JOSLYN ELENARO ####[facility] Goenozafbt[address] [place], [place] [address]Dr. Ricardo Rocha WBC 5-10 Abnormal NONE SEEN The [facility] Comment on above: Performed By: #### Jennifer HINOJOSA UMICRO ####[facility] Ajnhgtprwu[address] [place], [place] [address]Dr. Ricardo Rocha XR CHEST 1 Von 06-11-2022 XR CHEST 1 V Normal The [facility] XR FOOT LT MIN 3 VIEWSon XR FOOT LT MIN 3 VIEWS Normal The [facility] XR FOOT LT MIN 3 VIEWS Normal The [facility] ACETONE SERUMon 06-10-2022 ACETONE Negative Normal NEGATIVE The [facility] Comment on above: Performed By: #### A CETON ####[facility] [address]kw[address] [place] [address]Dr. Ricardo Rocha AMMONIAon 06-10-2022 Ammonia (P) [Mass/Vol] ug/dL Critically low The [facility] Comment on above: Performed By: #### A MM ####[facility] Eigaaagbey[address] [place], [place] [address]Dr. Ricardo Rocha BLOOD CULTURE ID PANELon A. baumannii Not detected Normal NOT DETECTED The [facility] Comment on above: Performed By: #### B CID2 ####[facility] Ggedhbkvsn[address] [place], [place] [address]Dr. Ricardo Rocha Bacteriodes fragilis Not detected Normal NOT DETECTED The [facility] Comment on above: Performed By: #### B CID2 ####[facility] Zxjydwuvzi[address] [place], [place] [address]Dr. Ricardo Rocha BCID CONTROLS PASSED Normal The [facility] Comment on above: Performed By: #### B CID2 ####[facility] [address]xe[address] [place] [address]Dr. Ricardo Rocha BCIDBTHD BLOOD CULTURE BOTTLE INFORMATION Normal The [facility] Comment on above: Performed By: #### B CID2 ####[facility] [address]mf[address] [place] [address]Dr. Ricardo Rocha BCIDHD1 ANTIMICROBIAL RESISTANCE GENES Normal The [facility] Comment on above: Performed By: #### B CID2 ####[facility] Kftwzplbqc[address] [place], [place] [address]Dr. Ricardo Rocha BCIDHD2 SEE BELOW Normal The [facility] Comment on above: Result Comment: Note : Antimicrobial resitance can occur via multiple mechanisms. A Not Detected result for the [employer] antomicrobial resistance gene assays does not indicate antimicrobial susceptibility. Subculturing is required for species identification and susceptibility testing of isolates. Performed By: #### B CID2 ####[facility] [address] [place] [address]Dr. Ricardo Rocha BCIDHD3 Positive Normal The [facility] Comment on above: Performed By: #### B CID2 ####[facility] Xpx[address]xk[address] [place] [address]Dr. Yimarcial Rocha BCIDHD4 Negative Normal The [facility] Comment on above: Performed By: #### B CID2 ####[facility] [address] [place] [address]Dr. Ricardo Rocha BCIDHD5 YEAST Normal The [facility] Comment on above: Performed By: #### B CID2 ####[facility] Bexbnvfgrh[address] [place], [place] [address]Dr. Ricardo Rocha Bottle Set: Set 1 Normal The [facility] Comment on above: Performed By: #### B CID2 ####[facility] [address]vtjzjurlx[address] [place], [place] [address]Dr. Ricardo Rocha Bottle: Aerobic Normal The [facility] Comment on above: Performed By: #### B CID2 ####[facility] Cshopxzedm[address] [place], [place] [address]Dr. Ricardo Rocha C. neoformans/gattii Not detected Normal NOT DETECTED The [facility] Comment on above: Performed By: #### B CID2 ####[facility] Ocmbsjhvbe[address] [place], [place] [address]Dr. Yimarcial Rocha Lauren albicans Not detected Normal NOT DETECTED The [facility] Comment on above: Performed By: #### B CID2 ####[facility] [address]pg[address] [place] [address]Dr. Ricardo Rocha Lauren auris Not detected Normal NOT DETECTED The [facility] Comment on above: Performed By: #### B CID2 ####[facility] Zouferjopz[address] [place], [place] [address]Dr. Yimarcial [facility] Lauren glabrata Not detected Normal NOT DETECTED The [facility] Comment on above: Performed By: #### B CID2 ####[facility] Yoljfntmqf[address] [place] [id number]. Ricardo Rocha Lauren Krusei Not detected Normal NOT DETECTED The [facility] Comment on above: Performed By: #### B CID2 ####[facility] Uuvpnjcatc[address] [place], [place] [address]Dr. Ricardo Rocha Lauren Parapsilosis Not detected Normal NOT DETECTED The [facility] Comment on above: Performed By: #### B CID2 ####[facility] Ivgpgabvoe[address] [place], [place] [address]Dr. Yimarcial Rocha Lauren Tropicalis Not detected Normal NOT DETECTED [facility] Comment on above: Performed By: #### B CID2 ####[facility] Zumrfduxsh[address] [place], [place] [address]Dr. Ricardo Rocha CTX-M Resistant Gene Not Applicable Normal NOT DETECTE D [facility] Comment on above: Performed By: #### B CID2 ####[facility] U[address]wmxwqqt[address] [place], [place] [address]Dr. Ricardo Rocha E. Cloacae complex Not detected Normal NOT DETECTED [facility] Comment on above: Performed By: #### B CID2 ####[facility] Epgejzlaru39[address] [place], [place] [address]Dr. Ricardo Rocha E. faecalis Not detected Normal NOT DETECTED The [facility] Comment on above: Performed By: #### B CID2 ####[facility] Tdjyvpdufk[address] [place], [place] [address]Dr. Ricardo Rocha E. faecium Not detected Normal NOT DETECTED The [facility] Comment on above: Performed By: #### B CID2 ####[facility] Fqaeinxhny[address] [place], [place] [address]Dr. Nanomarcial Rocha Enterobacteriaceae Not detected Normal NOT DETECTED [facility] Comment on above: Performed By: #### B CID2 ####[facility] Psjvwyefhm[address] [place], [place] [address]Dr. Nanomarcial Rocha Escherichia coli Not detected Normal NOT DETECTED The [facility] Comment on above: Performed By: #### B CID2 ####[facility] Bysfmdzlih[address] [place], [place] [address]Dr. Ricardo Rocha H. influenzae Not detected Normal NOT DETECTED The [facility] Comment on above: Performed By: #### B CID2 ####[facility] Ytmmkhnyiv[address] [place], [place] [address]Dr. Ricardo Rocha IMP Resistant Gene Not Applicable Normal NOT DETECTED The [facility] Comment on above: Performed By: #### B CID2 ####[facility] Bmmjfdmoxy[address] [place], [place] [address]Dr. Ricardo Rocha K. oxytoca Not detected Normal NOT DETECTED The [facility] Comment on above: Performed By: #### B CID2 ####[facility] J[address]jftlubk[address] [place], [place] [address]Dr. Ricardo Rocha K. pneumoniae Not detected Normal NOT DETECTED The [facility] Comment on above: Performed By: #### B CID2 ####[facility] Opx[address]dfpxnf[address] [place], [place] [address]Dr. Ricardo Rocha Klebsiella aerogenes Not detected Normal NOT DETECTED The [facility] Comment on above: Performed By: #### B CID2 ####[facility] Zeclxgkegw[address] [place], [place] [address]Dr. Ricardo Rocha KPC Resistant Gene Not Applicable Normal NOT DETECTED The [facility] Comment on above: Performed By: #### B CID2 ####[facility] Rjqjblacoo[address] [place], [place] [address]Dr. Ricardo Rocha List. monocytogenes Not detected Normal NOT DETECTED [facility] Comment on above: Performed By: #### B CID2 ####[facility] Bnneggneqo[address] [place], [place] [address]Dr. Nanomarcial Aj Mcr-1 Resistant Gene Not Applicable Normal NOT DETECTE D The [facility] Comment on above: Performed By: #### B CID2 ####[facility] Umhbzgpvsp[address] [place], [place] [address]Dr. Nanolan Rocha mecA/C Not Applicable Normal NOT DETECTED The [facility] Comment on above: Performed By: #### B CID2 ####[facility] Busdkclxqh[address] [place], [place] [address]Dr. Nanolan Rocha mecA/C MREJ Detected Abnormal NOT DETECTED The [facility] Comment on above: Performed By: #### B CID2 ####[facility] H[address]ctjcvap[address] [place], [place] [address]Dr. Ricardo Rocha N. meningitidis Not detected Normal NOT DETECTED The [facility] Comment on above: Performed By: #### B CID2 ####[facility] S[address]fqwnhsr[address] [place], [place] [address]Dr. Ricardo Rocha NDM Resistant Gene Not Applicable Normal NOT DETECTED The [facility] Comment on above: Performed By: #### B CID2 ####[facility] Psoqtuldlv[address] [place], [place] [address]Dr. Ricardo Rocha Oxa-48-like Not Applicable Normal NOT DETECTED The [facility] Comment on above: Performed By: #### B CID2 ####[facility] Dqjplgfqqj[address] [place], [place] [address]Dr. Ricardo Rocha Proteus Not detected Normal NOT DETECTED The [facility] Comment on above: Performed By: #### B CID2 ####[facility] Dknnzpaxjy[address] [place], [place] [address]Dr. Ricardo Rocha Pseud. aeruginosa Not detected Normal NOT DETECTED The [facility] Comment on above: Performed By: #### B CID2 ####[facility] Dexvtenfeo3419[address] [place], [place] [address]Dr. Ricardo Rocha S. maltophilia Not detected Normal NOT DETECTED The [facility] Comment on above: Performed By: #### B CID2 ####[facility] Dszckxsnuj[address] [place], [place] [address]Dr. Ricardo Rocha Salmonella Not detected Normal NOT DETECTED The [facility] Comment on above: Performed By: #### B CID2 ####[facility] Bksomyjtkc[address] [place], [place] [address]Dr. Ricardo Rocha Seratia marcescens Not detected Normal NOT DETECTED [facility] Comment on above: Performed By: #### B CID2 ####[facility] Movjddptcz[address] [place], [place] [address]Dr. Ricardo Rocha Site: LEFT AC IV START Normal The [facility] Comment on above: Performed By: #### B CID2 ####[facility] Ajxwczltvd[address] [place], [place] [address]Dr. Ricardo Rocha Staph. aureus Detected Critically abnormal NOT DETECTED The [facility] Comment on above: Performed By: #### B CID2 ####[facility] R[address]vouqlkhy[address] [place], [place] [address]Dr. Ricardo Rocha Staph. epidermidis Not detected Normal NOT DETECTED [facility] Comment on above: Performed By: #### B CID2 ####[facility] H[address]wkjyttdf[address] [place], [place] [address]Dr. Ricardo Rocha Staph. lugdunensis Not detected Normal NOT DETECTED [facility] Comment on above: Performed By: #### B CID2 ####[facility] Ycytkwcomf[address] [place], [place] [address]Dr. Nanolan Rocha Staphylococcus Detected Critically abnormal NOT DETECTED The [facility] Comment on above: Performed By: #### B CID2 ####[facility] Hdfbgbnrei[address] [place], [place] [address]Dr. Ricardo Rocha Strep. agalactiae Not detected Normal NOT DETECTED [facility] Comment on above: Performed By: #### B CID2 ####[facility] [address]bbvchxwz[address] [place], [place] [address]Dr. Ricardo Rocha Strep. pneumoniae Not detected Normal NOT DETECTED [facility] Comment on above: Performed By: #### B CID2 ####[facility] Ssdizyfhgc[address] [place], [place] [address]Dr. Ricardo Rocha Strep. pyogenes Not detected Normal NOT DETECTED The [facility] Comment on above: Performed By: #### B CID2 ####[facility] Eazyjlsqfy[address] [place], [place] [address]Dr. Ricardo Rocha Streptococcus Not detected Normal NOT DETECTED [facility] Comment on above: Performed By: #### B CID2 ####[facility] [address]qycjv[address] [place], [place] [address]Dr. Ricardo Rocha Layne/B Resist. Gene Not Applicable Normal NOT DETECTED [facility] Comment on above: Performed By: #### B CID2 ####[facility] [address] [place] [address]Dr. Ricardo Rocha VIM Resistant Gene Not Applicable Normal NOT DETECTED [facility] Comment on above: Performed By: #### B CID2 ####[facility] Bwpkjbzvqe[address] [place] [address]Dr. Ricardo Rocha BLOOD GASES BTYon 06-10-2022 02 MODE ROOM AIR Normal [facility] Comment on above: Performed By: #### A BG ####[facility] Cijqwkgsib[address] [place] [address]Dr. Ricardo Rocha ALLENS TEST Positive [facility] Comment on above: Performed By: #### A BG ####[facility] R[address]kvzwuqkf[address] [place], [place] [address]Dr. Ricardo Rocha Base excess Calc (Bld) [Moles/Vol] -4.5000 mmol/L Critically low -2.0-2.0 [facility] Comment on above: Performed By: #### A BG ####[facility] Jpzofhdlxe[address] [place], [place] [address]Dr. Ricardo Rocha BIPAP PRESSURE Normal [facility] Comment on above: Performed By: #### A BG ####[facility] Kqbjbn[address]hyc[address] [place], [place] [address]Dr. Ricardo Rocha CPAP Normal [facility] Comment on above: Performed By: #### A BG ####[facility] M[address]zkhvjv[address] [place], [place] [address]Dr. Ricardo Rcoha FIO2 Normal [facility] Comment on above: Performed By: #### A BG ####[facility] X[address]wihnif[address] [place], [place] [address]Dr. Ricardo Rocha HCO3 (Bld) [Moles/Vol] 21.4 mmol/L Critically low 22.0-26.0 [facility] Comment on above: Performed By: #### A BG ####[facility] Zjxzjsdewh[address] [place], [place] [address]Dr. Ricardo Rocha LPM Normal [facility] Comment on above: Performed By: #### A BG ####[facility] Djzzfwgjdv[address] [place], [place] [address]Dr. Ricardo Rocha MINUTE VOLUME Normal [facility] Comment on above: Performed By: #### A BG ####[facility] Xicxosadip[address] [place], [place] [address]Dr. Ricardo Rocha Oxygen (Bld) [Partial pressure] 66.4 mm[Hg] Critically low 80.0-100.0 [facility] Comment on above: Performed By: #### A BG ####[facility] Szuohrsngk[address] [place], [place] [address]Dr. Ricardo Rocha Oxygen saturation in Blood 94.6 % Critically low 95.0-100.0 [facility] Comment on above: Performed By: #### A BG ####[facility] Mrsuxocpfv[address] [place], [place] [address]Dr. Ricardo Rocha PCO2 29.4 mmHg Critically low 35.0-45.0 [facility] Comment on above: Performed By: #### A BG ####[facility] Tpolxwlghq[address] [place], [place] [address]Dr. Ricardo Rocha PEEP [facility] Comment on above: Performed By: #### A BG ####[facility] Aognfaywtd[address] [place], [place] [address]Dr. Ricardo Rocha pH (Bld) 7.436 [pH] Normal 7.350-7.450 [facility] Comment on above: Performed By: #### A BG ####[facility] [address]yajbhtexg[address] [place], [place] [address]Dr. Ricardo Rocha PIP Normal [facility] Comment on above: Performed By: #### A BG ####[facility] Eyptcytxyi[address] [place], [place] [address]Dr. Ricardo Rocha PS [facility] Comment on above: Performed By: #### A BG ####[facility] Cyopszpyun[address] [place], [place] [address]Dr. Ricardo Rocha PUNCTURE SITE LR Normal [facility] Comment on above: Performed By: #### A BG ####[facility] Zqmxlrkyyw[address] [place], [place] [address]Dr. Ricardo Rocha RATE Normal [facility] Comment on above: Performed By: #### A BG ####[facility] [address]fkdpuer[address] [place] [address]Dr. Nanomarcial Rocha VENT MODE Normal [facility] Comment on above: Performed By: #### A BG ####[facility] Srlluswwcm8[address] [place] [address]Dr. Nanomarcial Rocha [place] Normal [facility] Comment on above: Performed By: #### A BG ####[facility] Dkhterdacm12[address] [place] [address]Dr. Ricardo Aj CBC W MANUAL DIFFon 06-10-20 ATYPICAL LYMPH # Normal [facility] Comment on above: Performed By: #### C EVELYNMAN ####[facility] Agvntfyhis[address] [place] [address]Dr. Ricardo Aj ATYPICAL LYMPH % Normal [facility] Comment on above: Performed By: #### C BCRED ####[facility] Slucypkiju[address] [place], [place] [address]Dr. Ricardo Rocha BAND # 1.3 103/ul Critically high 0.0-0.3 [facility] Comment on above: Performed By: #### C BCRED ####[facility] K[address]pdcxd[address] [place], [place] [address]Dr. Nanomarcial Aj BAND % 12 % Critically high 0-5 [facility] Comment on above: Performed By: #### C BCMAN ####[facility] Swbymwxham[address] [place], [place] [address]Dr. Ricardo Rocha BASOM # 0.00 103/ul Normal 0.00-0.10 [facility] Comment on above: Performed By: #### C BCMAN ####[facility] Zgijosphsc[address] [place], [place] [address]Dr. Ricardo Aj BASOM % 0.0 % Critically low 0.2-2.0 [facility] Comment on above: Performed By: #### C BCMAN ####[facility] Ehriixeqbs[address] [place], [place] [address]Dr. Ricardo Rocha BLAST # Normal [facility] Comment on above: Performed By: #### C DWAINE ####[facility] Lkieqflfvu35[address] [place] [id number]. Ricardo Rocha BLAST % Normal [facility] Comment on above: Performed By: #### C DWAINE ####[facility] Foxaxjbtxv7[address] [place] [id number]. Ricardo Rocha CORRECTED WBC Normal 4.0-11.0 [facility] Comment on above: Performed By: #### C DWAINE ####[facility] Eefpulaokz9[address] [place] [phone]. Ricardo Rocha EOS # 0.00 103/ul Normal 0.00-0.70 [facility] Comment on above: Performed By: #### C DWAINE ####[facility] Enxyyksyow4969 [place] [id number]. Ricardo Rocha EOS% 0.0 % Critically low 0.9-7.0 [facility] Comment on above: Performed By: #### C DWAINE ####[facility] Ywzujumets9636 [place] [id number]. Ricardo Rocha HCT 35.5 % Critically low 36.0-48.0 [facility] Comment on above: Performed By: #### C DWAINE ####[facility] Jydtogcxmo8044 [place] [phone]. Ricardo Rocha HGB 11.4 g/dl Critically low 12.0-16.0 [facility] Comment on above: Performed By: #### C DWAINE ####[facility] Iufhuinykc3590 [place] [phone]. Ricardo Rocha HYPERSEG NEUT 3+ Normal [facility] Comment on above: Performed By: #### C DWAINE ####[facility] Odogqyuqpy3577 [place] [phone]. Ricardo Rocha LYMPHM # 0.21 103/ul Critically low 1.20-3.80 The [facility] Comment on above: Performed By: #### C DWAINE ####[facility] Yjbwnqfdlw8857 [place] [phone]. Ricardo Rocha LYMPHM% 2.0 % Critically low 20.5-60.0 [facility] Comment on above: Performed By: #### C DWAINE ####[facility] Ljaohnssfs[address] [place] [address]Dr. Ricardo Rocha MCH 25.3 pg Critically low 26.7-34.0 [facility] Comment on above: Performed By: #### C DWAINE ####[facility] Rehzgofngu1784 [place] [phone]. Ricardo Rocha MCHC 32.1 g/dl Normal 29.9-35.2 [facility] Comment on above: Performed By: #### C DWAINE ####[facility] Yrxpnogzpo[address] [place] [address]Dr. Ricardo Rocha MCV 78.9 fL Critically low 81.0-99.0 [facility] Comment on above: Performed By: #### C DWAINE ####[facility] Nsujtsusao[address] [place] [address]Dr. Ricardo Rocha METAMYELOCYTE # Normal The [facility] Comment on above: Performed By: #### C DWAINE ####[facility] Krssntcxhd12[address] [place] [address]Dr. Ricardo Rocha METAMYELOCYTE % Normal [facility] Comment on above: Performed By: #### C DWAINE ####[facility] Qnlrhoydik060[address] [place] [address]Dr. Ricardo Rocha MONOM# 0.32 103/ul Normal 0.30-0.80 [facility] Comment on above: Performed By: #### C DWAINE ####[facility] Xldhcphwwr[address] [place] [address]Dr. Ricardo Rocha MONOM% 3.0 % Normal 1.7-12.0 [facility] Comment on above: Performed By: #### C DWAINE ####[facility] Cpywwfgciw53[address] [place] [address]Dr. Ricardo Rocha MPV 10.9 fL Normal 9.5-13.5 [facility] Comment on above: Performed By: #### C BCRED ####[facility] Mpojwtpjym8896 [place] [phone]. Ricardo Rocha MYELOCYTE # Normal [facility] Comment on above: Performed By: #### C DWAINE ####[facility] Lzawlqbjjn75[address] [place] [phone]. Ricardo Rocha MYELOCYTE % Normal [facility] Comment on above: Performed By: #### C BCRED ####[facility] Jgxalqqzio7885 [place] [phone]. Ricardo Rocha NRBC Normal [facility] Comment on above: Performed By: #### C DWAINE ####[facility] Egzpsgkaso16[address] [place] [address]Dr. Ricardo Rocha PLT 180 103/ul Normal 150-450 [facility] Comment on above: Performed By: #### C DWAINE ####[facility] Oynhylmohl[address] [place] [address]Dr. Ricardo Rocha RBC 4.50 106/ul Normal 4.20-5.40 [facility] Comment on above: Performed By: #### C DWAINE ####[facility] Exexvahhkk[address] [place] [address]Dr. Ricardo Rocha RDW 12.8 % Normal 11.0-15.0 [facility] Comment on above: Performed By: #### C DWAINE ####[facility] Bsilszxeak4818 [place] [phone]. Ricardo Rocha SEG # 8.71 103/ul Critically high 1.40-6.[address] [facility] Comment on above: Performed By: #### C DWAINE ####[facility] Zzmzbsaxyt7012 [place] [phone]. Ricardo Rocha SEG % 83.0 % Critically high 43.0-75.0 The [facility] Comment on above: Performed By: #### C DWAINE ####[facility] Ruytlftanm1697 [place] [phone]. Ricardo Rocha TOXIC GRANULATION 2+ Normal [facility] Comment on above: Performed By: #### C DWAINE ####[facility] Jymmjwbjln9715 [place] [phone]. Ricardo Rocha WBC 10.5 103/ul Normal 4.0-11.0 [facility] Comment on above: Performed By: #### C BCMAN ####[facility] Zikhqnansn5450 [place] [phone]. Ricardo Rocha CULTURE BLOODon 06-10-2022 Microscopic examination of blood, culture Culture Observations: Positive blood culture. Pediatric bottle. Culture Observations: Please refer to for susceptibility testing. Isolate 1 Staphylococcus aureus Growth of Normal [facility] Comment on above: Performed By: #### B LDCX2 ####[facility] Ifjmynnfso[address] [place] [address]Dr. Ricardo Rocha LACTATE/LACTIC ACIDon 2021 Lactate [Moles/Vol] 1.9 mmol/L Normal 0.4-1.9 [facility] Comment on above: Performed By: #### L ACT ####[facility] Womizzmrjo[address] [place] [address]Dr. Ricardo Rocha LIPASEon 06-10-2022 Lipase [Catalytic activity/Vol] 164.0 U/L Normal 73.0-393.0 [facility] Comment on above: Performed By: #### H STROPN, LIPA, CMP, TSH ####[facility] Zeljeckath6[address] [place] [address]Dr. Ricardo Rocha POINT OF CARE GLUCOSEon 05-22 Glucose [Mass/Vol] 583 mg/dL Critically high 74-106 [facility] Comment on above: Result Comment: Resu lt Not Confirmed Performed By: #### P OCGLUC ####[facility] [address]fc[address] [place], [place] [address]Dr. Nanomarcial Rocha PROF 14(COMP METB)on 022 Albumin [Mass/Vol] 3.0 g/dL Critically low 3.4-5.0 [facility] Comment on above: Performed By: #### H STROPN, LIPA, CMP, TSH ####[facility] Xkoukeqccu[address] [place], [place] [address]Dr. Ricardo Rocha Albumin/Globulin [Mass ratio] 0.5 {ratio} Normal [facility] Comment on above: Performed By: #### H STROPN, LIPA, CMP, TSH ####[facility] Atgpqhqeyz65[address] [place] [address]Dr. Ricardo Rocha ALP [Catalytic activity/Vol] 116 U/L Normal 46-116 [facility] Comment on above: Performed By: #### H STROPN, LIPA, CMP, TSH ####[facility] Hwrocqgyae6[address] [place] [address]Dr. Ricardo Rocha ALT [Catalytic activity/Vol] 15 U/L Normal 14-59 [facility] Comment on above: Performed By: #### H STROPN, LIPA, CMP, TSH ####[facility] Kzblnzwxjz38[address] [place] [address]Dr. Ricardo Rocha Anion gap [Moles/Vol] 15.7 mmol/L Normal [facility] Comment on above: Performed By: #### H STROPN, LIPA, CMP, TSH ####[facility] Nbxanhfzar7706 [place] [address]Dr. Ricardo Rocha AST [Catalytic activity/Vol] 16 U/L Normal 15-37 [facility] Comment on above: Performed By: #### H STROPN, LIPA, CMP, TSH ####[facility] Kzgjbrkzbn13[address] [place] [address]Dr. Ricardo Rocha Bilirubin [Mass/Vol] 0.5 mg/dL Normal 0.2-1.0 [facility] Comment on above: Performed By: #### H STROPN, LIPA, CMP, TSH ####[facility] Ievddbfabn0146 [place] [address]Dr. Nanomarcial Rocha Calcium [Mass/Vol] 9.4 mg/dL Normal 8.5-10.1 [facility] Comment on above: Performed By: #### H STROPN, LIPA, CMP, TSH ####[facility] Gpdxpecyap24[address] [place] [address]Dr. Ricardo Rocha Chloride [Moles/Vol] 95 mmol/L Critically low 98-107 [facility] Comment on above: Performed By: #### H STROPN, LIPA, CMP, TSH ####[facility] Rliinulstc57[address] [place] [address]Dr. Ricardo Rocha CO2 [Moles/Vol] 22.1 mmol/L Normal 21.0-32.0 [facility] Comment on above: Performed By: #### H STROPN, LIPA, CMP, TSH ####[facility] Fxwkrqgdwe2[address] [place] [address]Dr. Ricardo Rocha Creatinine [Mass/Vol] 2.23 mg/dL Critically high 0.55-1.02 [facility] Comment on above: Performed By: #### H STROPN, LIPA, CMP, TSH ####[facility] Ksytyzlkzo34[address] [place] [address]Dr. Ricardo Rocha EGFR-AF [place] 27 mL/min/1.73m2 Critically low >=60 [facility] Comment on above: Performed By: #### H STROPN, LIPA, CMP, TSH ####[facility] Xeosnthuoo[address] [place], [place] [address]Dr. Ricardo Rocha EGFR-NON AF [place] 22 mL/min/1.73m2 Critically low >=60 [facility] Comment on above: Performed By: #### H STROPN, LIPA, CMP, TSH ####[facility] Wepifhxlwp4364 [place] [address]Dr. Ricardo Rocha Globulin (S) [Mass/Vol] 6.5 g/dL Normal [facility] Comment on above: Performed By: #### H STROPN, LIPA, CMP, TSH ####[facility] Jbqwtdopyo73[address] [place] [address]Dr. Ricardo Rocha Glucose [Mass/Vol] 593 mg/dL Critically high 74-106 [facility] Comment on above: Performed By: #### H STROPN, LIPA, CMP, TSH ####[facility] Jqrpqumlqf232[address] [place] [address]Dr. Ricardo Rocha Potassium [Moles/Vol] 3.8 mmol/L Normal 3.5-5.1 [facility] Comment on above: Performed By: #### H STROPN, LIPA, CMP, TSH ####[facility] Owwpgbwzes28[address] [place] [address]Dr. Ricardo Rocha Protein [Mass/Vol] 9.5 g/dL Critically high 6.4-8.2 T [facility] Comment on above: Performed By: #### H STROPN, LIPA, CMP, TSH ####[facility] Kludus[address]jo[address] [place], [place] [address]Dr. Ricardo Rocha Sodium [Moles/Vol] 129 mmol/L Critically low 136-145 [facility] Comment on above: Performed By: #### H STROPN, LIPA, CMP, TSH ####[facility] Srwaycdvzq[address] [place], [place] [address]Dr. Ricardo Rocha Urea nitrogen [Mass/Vol] 40.0 mg/dL Critically high 7.0-18.0 [facility] Comment on above: Performed By: #### H STROPN, LIPA, CMP, TSH ####[facility] Astcxgqisr[address] [place], [place] [address]Dr. Ricardo Rocha Urea nitrogen/Creatinine [Mass ratio] 17.9 mg/mg Normal [facility] Comment on above: Performed By: #### H STROPN, LIPA, CMP, TSH ####[facility] [address]qrzttfi[address] [place], [place] [address]Dr. Ricardo Rocha PROTIMEon 06-10-2022 INR Coag (PPP) [Relative time] 1.00 {INR} Normal [facility] Comment on above: Performed By: #### P TT, PT ####[facility] [address]qjkwuq[address] [place], [place] [address]Dr. Ricardo Rocha INR GUIDELINES SEE BELOW Normal [facility] Comment on above: Result Comment: AMBROSIO RED INR: 2.0 - 3.0 CONDITIONS NOT LISTED BELOW 2.5 - 3.5 FOR PROSTHETIC HEART VALVE REPLACEMENT 2.5 - 3.5 RECURRENT THROMBOSIS Performed By: #### P TT, PT ####[facility] Evvtgxlyga[address] [place], [place] [address]Dr. Ricardo Rocha PT Coag (PPP) [Time] 10.8 s Normal 9.0-11.6 [facility] Comment on above: Performed By: #### P TT, PT ####[facility] Uxlrdrdbfy033[address] [place] [phone]. Ricardo Rocha PTTon 06-10-2022 aPTT Coag (Bld) [Time] 31.7 s Normal 22.3-36.2 [facility] Comment on above: Performed By: #### P TT, PT ####[facility] Ryamiumbui27[address] [place] [phone]. Ricardo Rocha TROPONIN, HIGH SENSITIVITYon 06-10-2022 HSTROP 30.9 pg/mL Normal 4.0-51.3 [facility] Comment on above: Result Comment: CUT- OFF POINTS HAVE BEEN ESTABLISHED BASED ON THE FOURTH UNIVERSAL DEFINITIONS OF MYOCARDIALINFARCTION. THE UPPER REFERENCE LIMIT (URL) OF TROPONIN, DEFINED THE 99TH PERCENTILE OFcTnI DISTRIBUTION IN A REFERENCE POPULATION, HAS BEEN CONFIRMED THE DECISION THRESHOLDFOR MD DIAGNOSIS. Performed By: #### H STROPN, LIPA, CMP, TSH ####[facility] Wuetalqlej6[address] [place] [phone]. Ricardo Rocha TSHon 06-10-2022 TSH 0.147 uIU/mL Critically low 0.358-3.740 [facility] Comment on above: Performed By: #### H STROPN, LIPA, CMP, TSH ####[facility] Zyhhtuxeww[address] [place] [address]Dr. Ricardo Rocha XR FOOT ALINE MIN 3 VIEWSon XR FOOT ALINE MIN 3 VIEWS Normal [facility] XR HAND RT MIN 3Von 06-02-20 XR HAND RT MIN 3V Normal [facility] CULTURE WOUNDon 05-15-2022 CULTURE WOUND Normal [facility] Comment on above: Performed By: #### W OUNDCX ####[facility] Aeszymsrdl3[address] [place] [phone]. Ricardo Rocha CBC AUTO DIFFon 2022 BASO # 0.0 103/ul Normal 0.0-0.1 [facility] Comment on above: Performed By: #### C BC ####[facility] Sypdbrjlmr4097 [place] [phone]. Ricardo Rocha Basophils/100 WBC (Bld) 0.7 % Normal 0.2-2.0 [facility] Comment on above: Performed By: #### C BC ####[facility] Axx[address]nite[address] [place], [place] [id number]. Ricardo Rocha EO # 0.1 103/ul Normal 0.0-0.7 [facility] Comment on above: Performed By: #### C BC ####[facility] Fhqpxbsegy8854 [place] [phone]. Ricardo Rocha Eosinophils/100 WBC (Bld) 2.1 % Normal 0.9-7.0 [facility] Comment on above: Performed By: #### C BC ####[facility] Morivdmecy[address] [place], [place] [address]Dr. Ricardo Rocha Erythrocyte distribution width (RBC) [Ratio] 13.2 % Normal 11.0-15.0 [facility] Comment on above: Performed By: #### C BC ####[facility] Daplsynpkk[address] [place], [place] [address]Dr. Ricardo Rocha Hematocrit (Bld) [Volume fraction] 36.6 % Normal 36.0-48.0 [facility] Comment on above: Performed By: #### C BC ####[facility] Avdpvokmbr[address] [place], [place] [address]Dr. Ricardo Rocha Hemoglobin (Bld) [Mass/Vol] 11.9 g/dL Critically low 12.0-16.0 [facility] Comment on above: Performed By: #### C BC ####[facility] Ckixnjrrwo[address] [place], [place] [address]Dr. Ricardo Rocha IG # 0.03 10e3/ul Normal 0.00-0.03 [facility] Comment on above: Performed By: #### C BC ####[facility] X[address]emjpc[address] [place], [place] [address]Dr. Ricardo Rocha IG % 0.5 % Normal 0.0-0.5 [facility] Comment on above: Performed By: #### C BC ####[facility] Rhlxhqfetv2421 [place] [phone]. Ricardo Rocha LYMPH # 2.1 103/ul Normal 1.2-3.8 [facility] Comment on above: Performed By: #### C BC ####[facility] Fhdcxecyad9676 [place] [phone]. Ricardo Rocha Lymphocytes/100 WBC (Bld) 33.8 % Normal 20.5-60.0 [facility] Comment on above: Performed By: #### C BC ####[facility] Gqznulaosu5545 [place] [address]DrIrina Rocha MANUAL DIFF REQ NO Normal [facility] Comment on above: Performed By: #### C BC ####[facility] Tjhcnjmulu6704 [place] [address]Dr. Ricardo Rocha MCH (RBC) [Entitic mass] 25.7 pg Critically low 26.7-34.0 [facility] [facility] Comment on above: Performed By: #### C BC ####[facility] [address] [place] [id number]. Ricardo Rocha MCHC (RBC) [Mass/Vol] 32.5 g/dL Normal 29.9-35.2 [facility] Comment on above: Performed By: #### C BC ####[facility] [address] [place] [address]DrIrina Rocha MCV (RBC) [Entitic vol] 79.0 fL Critically low 81.0-99.0 [facility] Comment on above: Performed By: #### C BC ####[facility] [address] [place] [address]DrIrina Rocha MONO # 0.4 103/ul Normal 0.3-0.8 [facility] Comment on above: Performed By: #### C BC ####[facility] [address] [place] [id number]. Ricardo Rocha Monocytes/100 WBC (Bld) 6.2 % Normal 1.7-12.0 [facility] Comment on above: Performed By: #### C BC ####[facility] [address] [place] [id number]. Ricardo Rocha NEUT # 3.5 103/ul Normal 1.4-6.5 [facility] Comment on above: Performed By: #### C BC ####[facility] [address] [place] [id number]. Ricardo Rocha Neutrophils/100 WBC (Bld) 56.7 % Normal 43.0-75.0 [facility] Comment on above: Performed By: #### C BC ####[facility] [address] [place] [address]Dr. Ricardo Rocha Platelet mean volume (Bld) [Entitic vol] 10.9 fL Normal 9.5-13.5 [facility] Comment on above: Performed By: #### C BC ####[facility] [address] [place] [address]Dr. Ricardo Rocha PLT 241 103/ul Normal 150-450 [facility] Comment on above: Performed By: #### C BC ####[facility] [address] [place] [address]Dr. Ricardo Rocha RBC 4.63 106/ul Normal 4.20-5.40 [facility] Comment on above: Performed By: #### C BC ####[facility] [address] [place] [id number]. Ricardo Rocha WBC 6.1 103/ul Normal 4.0-11.0 [facility] Comment on above: Performed By: #### C BC ####[facility] [address] [place] [id number] Rocha PROF CHEM 8 (BAS METB)on Anion gap [Moles/Vol] 11.8 mmol/L Normal [facility] Comment on above: Performed By: #### B MP ####[facility] [address] [place] [address]DrIrina Rocha Calcium [Mass/Vol] 9.2 mg/dL Normal 8.5-10.1 [facility] Comment on above: Performed By: #### B MP ####[facility] [address] [place] [id number]. Ricardo Rocha Chloride [Moles/Vol] 99 mmol/L Normal 98-107 [facility] Comment on above: Performed By: #### B MP ####[facility] [address] [place] [id number]. Ricardo Rocha CO2 [Moles/Vol] 24.7 mmol/L Normal 21.0-32.[address] [facility] Comment on above: Performed By: #### B MP ####[facility] [address] [place] [address]Dr. Ricardo Rocha Creatinine [Mass/Vol] 1.48 mg/dL Critically high 0.55-1.02 [facility] Comment on above: Performed By: #### B MP ####[facility] [address] [place] [address]Dr. Ricardo Rocha EGFR-AF [place] 43 mL/min/1.73m2 Critically low >=60 [facility] Comment on above: Performed By: #### B MP ####[facility] [address] [place], [place] [address]Dr. Ricardo Rocha EGFR-NON AF [place] 36 mL/min/1.73m2 Critically low >=60 [facility] Comment on above: Performed By: #### B MP ####[facility] [address] [place] [address]Dr. Ricardo Rocha Glucose [Mass/Vol] 431 mg/dL Critically high 74-106 [facility] Comment on above: Performed By: #### B MP ####[facility] [address] [place] [phone]. Ricardo Rocha Potassium [Moles/Vol] 4.5 mmol/L Normal 3.5-5.1 [facility] Comment on above: Performed By: #### B MP ####[facility] [address] [place], [place] [id number]. Ricardo Rocha Sodium [Moles/Vol] 131 mmol/L Critically low 136-145 Th e [facility] Comment on above: Performed By: #### B MP ####[facility] [address] [place], [place] [address]Fe. Ricardo Rocha Urea nitrogen [Mass/Vol] 23.0 mg/dL Critically high 7.0-18.0 [facility] Comment on above: Performed By: #### B MP ####[facility] [address] [place], [place] [address]Ko. Ricardo Rocha Urea nitrogen/Creatinine [Mass ratio] 15.5 mg/mg Normal [facility] Comment on above: Performed By: #### B MP ####[facility] [address] [place], [place] [address]Oc. Ricardo Rocha XR TOES ALINE MIN 2 Von 2021 XR TOES ALINE MIN 2 V Normal [facility] ALLIED HEALTH 01-21-2021 ALLIED HEALTH HNO ID: [id number] Author: RT Parveen(Raquel) Service: ? Author Type: Bedspread Inspector Type: Allied Health Filed: 01/20/2021 10:30 PM Note Text: Radiology Service Progress Note PATIENT NAME: Aislinn Wheeler DATE OF SERVICE: January 20, 2021 TIME: 10:29 PM PATIENT IDENTITY VERIFICATION COMPLETED USING TWO (2) IDENTIFIERS: Name and Date of confirmed by patient verbally and Name and Date of confirmed by identification band. FALL SCREENING: Has the patient had 2 falls in the last year or 1 fall with injury or currently using an Ambulatory Assistive Device (Walker, Cane, Wheelchair, Crutches, etc.)? Inpatient: Screened on floor PATIENT GENDER DATA: Female. status: : No status: NO. PATIENT RELEVANT IMPLANT DATA REVIEWED: Yes RADIOLOGY DEPARTMENT: MR; Exam(s) Completed: Body: Renal PERIPHERAL IV DATA: Inpatient: see LDA documentation SIGNED BY: RT Parveen(R) January 20, 2021 10:[address] [facility] Basic Metabolic Panlon 01-21 Anion gap [Moles/Vol] 7 mmol/L Low 9-18 [facility] Calcium [Mass/Vol] 8.8 mg/dL Normal 8.5-10.2 [facility] Chloride [Moles/Vol] 99 mmol/L Normal 97-105 [facility] CO2 [Moles/Vol] 25 mmol/L Normal 22-30 [facility] Creatinine [Mass/Vol] 1.51 mg/dL High 0.58-0.96 [facility] eGFR- Amer. 42 Normal [facility] eGFR-All Other Races [address] [facility] Comment on above: Result Comment: eGFR (Estimated GFR) Units of measure: mL/min/1.73 meters squared eGFR is derived from the reexpressed MDRD Study equation using the following parameters: serum creatinine, age, gender and race. The creatinine assay has been calibrated to be traceable to IDMS. An eGFR <60 mL/min/1.73m2 for >3 months is consistent with chronic kidney disease. Refer to KDOQI guidelines for clinical interpretation. In patients with unstable renal function, e.g. those with acute kidney injury, the eGFR may not accurately reflect actual GFR. Glucose [Mass/Vol] 141 mg/dL High 74-99 [facility] Comment on above: Result Comment: The [place] Diabetes Association (ADA) provides guidance for cutoff values for fasting glucose and random glucose. The ADA defines fasting as no caloric intake for at least 8 hours. Fasting plasma glucose results between 100 to 125 mg/dL indicate increased risk for diabetes (prediabetes). Fasting plasma glucose results greater than or equal to 126 mg/dL meet the criteria for diagnosis of diabetes. In the absence of unequivocal hyperglycemia, results should be confirmed by repeat testing. In a patient with classic symptoms of hyperglycemia or hyperglycemic crisis, random plasma glucose results greater than or equal to 200 mg/dL meet the criteria for diagnosis of diabetes. Reference: Standards of Medical Care in Diabetes 2016, [place] [employer]. Diabetes Care. 2016.39(Suppl 1). Potassium [Moles/Vol] 4.7 mmol/L Normal 3.7-5.1 [facility] Sodium [Moles/Vol] 131 mmol/L Low 136-144 [facility] Urea nitrogen [Mass/Vol] 42 mg/dL High 7-21 [facility] CBCon 01-21-2021 Absolute nRBC <0.01 Normal <0.01 [facility] Erythrocyte distribution width (RBC) [Ratio] 13.1 % Normal 11.5-15.0 [facility] Hematocrit (Bld) [Volume fraction] 30.0 % Low 36.0-46.0 [facility] Hemoglobin (Bld) [Mass/Vol] 9.5 g/dL Low 11.5-15.5 [facility] MCH 24.4 pG Low 26.0-34.0 [facility] MCHC (RBC) [Mass/Vol] 31.7 g/dL Normal 30.5-36.0 [facility] MCV (RBC) [Entitic vol] 77.1 fL Low 80.0-100.0 [facility] Platelet mean volume (Bld) [Entitic vol] 11.1 fL Normal 9.0-12.7 [facility] Platelets (Bld) [#/Vol] 358 10*3/uL Normal 150-400 [facility] RBC (Bld) [#/Vol] 3.89 10*6/uL Low 3.90-5.20 [facility] WBC (Bld) [#/Vol] 9.64 10*3/uL Normal 3.70-11.00 [facility] CNDSon 01-21-2021 CNDS HNO ID: [id number] Author: Inna Hansen DO Service: Hospital Medicine Author Type: Physician Type: Discharge Summary Filed: 01/21/2021 10:43 AM Note Text: DISCHARGE SUMMARY PATIENT NAME: Aislinn Wheeler ADMISSION DATE: 01/17/2021 DISCHARGE DATE: 01/21/2021 ATTENDING PHYSICIAN: Inna Hansen DO Code Status: Not on file Highest Readmission Risk Score: 27 The 30 day readmissions risk score is derived from an internally validated risk model which evaluates patient level characteristics, utilization history, medication orders and lab results up until the day of discharge. Patients with a score of 40 or above are considered highest risk for readmission. Specific patient level drivers will be listed at the bottom of the summary. CONSULTING TEAMS DURING HOSPITALIZATION: Urology, Nephrology Treatment Team: Attending Provider: Inna Hansen DO Physician Bat Carrier: Garrett Simon PA-C Consulting: Taurus Ballard MD REASON FOR HOSPITALIZATION: Bladder outlet obstruction Bilateral hydronephrosis Complicated UTI Left renal cyst DIAGNOSIS: Principal Problem: Sepsis (HCC) POA: Yes Active Problems: Pyelonephritis POA: Yes Hydronephrosis due to obstruction of ureter POA: Yes Acute cystitis without hematuria POA: Unknown Acute bilateral obstructive uropathy POA: Yes Hyponatremia POA: Yes ANATOLIY (acute kidney injury) (HCC) POA: Yes Hyperkalemia POA: Yes Severe protein-calorie malnutrition (HCC) POA: Unknown Resolved Problems: * No resolved hospital problems. * OPERATIONS DURING HOSPITALIZATION: None PROCEDURES DURING HOSPITALIZATION: No procedures performed HOSPITAL COURSE: 60 yo F admitted with generalized weakness and falls, found to be septic with ANATOLIY secondary to a UTI. CT revealed concerns for bladder outlet obstruction and mild bilateral hydronephrosis without ureteral calculi. Chaves was helped to help with decompression, she was treated with IV fluids and IV antibiotics. Urine culture returned positive for Proteus. Blood cultures were negative. She was seen by Urology and Nephrology. ANATOLIY was thought to be obstructive in nature and continues to improve as the Chaves remains in place. She had an MRI kidneys performed which revealed a left renal cyst (patient reports this to be known). Recommendation is for follow up MRI in 6 months. She will follow up outpatient with Urology for a cystoscopy and Chaves removal as scheduled on 01/29. She continues on oral antibiotics at discharge. ANATOLIY continues to improve. Transitions of Care Critical Issues: SPECIALIST FOLLOW-UP: Urology LABS AND PROCEDURES PENDING AT DISCHARGE: No pending results. INCIDENTAL OR ACTIONABLE FINDING (Last Refresh: 01/21/2021 10:25 AM) Test(s): CT CHEST WO IVCON CT ABD/PEL WO IVCON MRI KIDNEY WO/W IVCON PATIENT CONDITION AT DISCHARGE: Stable DISCHARGE DISPOSITION: Home with Home Health Care Gen: NAD, AANDO HEENT: MMM Heart: RRR Lungs: CTAB. No accessory muscle use Abd: soft, NT, ND. NABS. No masses Ext: no edema Skin: no rashes Neuro: Face symmetric. Moves all four extremities without gross deficits. : Chaves in place; light yellow urine in collection bag ? WOUND/SURGICAL SITE CARE: None DIET: Resume pre-hospital diet ACTIVITY: Resume pre-hospital activity ALLERGIES Allergen Reactions - Latex Rash Added based on information entered during case entry, please review and add reactions, type, and severity as needed DISCHARGE MEDICATION: Current Discharge Medication List START taking these medications ciprofloxacin HCl (CIPRO) 250 mg Take 250 mg by mouth once daily. Qty: 3 tablet Refills: 0 CONTINUE these medications which have CHANGED insulin glargine (LANTUS) 25 Units Inject 25 Units subcutaneously daily at bedtime. Qty: 10 Vial Refills: 0 CONTINUE these medications which have NOT CHANGED albuterol HFA (PROVENTIL HFA, VENTOLIN HFA) 2 Puffs Inhale 2 Puffs as instructed every 6 hours as needed for wheezing/shortness of breath. pregabalin (LYRICA) 150 mg Take 150 mg by mouth three times daily. HYDROcodone-Acetaminoph en (NORCO) 1 tablet Take 1 tablet by mouth three times daily as needed. budesonide-formoterol (SYMBICORT) 2 Puffs Inhale 2 Puffs as instructed twice daily. STOP taking these medications insulin detemir U-100 (LEVEMIR FLEXTOUCH U-100 INSULIN) 100 unit/mL (3 mL) injection pen Comments: Reason for Stopping: albuterol (PROVENTIL) 2.5 mg Comments: Reason for Stopping: insulin aspart U-100 (NOVOLOG) 100 unit/mL Comments: Reason for Stopping: FUTURE APPOINTMENTS: Follow Up with PCP: referred to a new PCP in [place]. Future Appointments Date Time Provider Department Center 01/29/2021 11:40 AM Taurus Ballard MD [facility] The patient's risk for 30-day readmission is determined using the following contributing factors: Pt variables contributing to increased readmission risk: 42 Most Recent (more content not included)... Normal [facility] MRI KIDNEY WO/W IVCONon 06-0 MRI KIDNEY WO/W IVCON * * *Final Report* * * DATE OF EXAM: Jan 20 2021 10:35PM [facility] 0721 - MRI KIDNEY WO/W IVCON / PROCEDURE REASON: Renal cyst * * * * Physician Interpretation * * * * EXAMINATION: MRI ABDOMEN WITHOUT AND WITH IV CONTRAST CLINICAL HISTORY: Renal mass characterization. TECHNIQUE: A renal MRI was performed on a MR system utilizing the torso phased-array coil. Pulse sequences included: axial precontrast T1 weighted in- and ctl-la-[id number], axial and coronal HASTE, axial DWI with creation of ADC map; axial and coronal T1-VIBE before and after the administration of intravenous gadolinium chelate. Multiple post processing techniques were performed. MQ: [id number] Contrast: IV administration of 10 ml of Dotarem COMPARISON: None. RESULT: Kidneys, adrenals and ureters: Right kidney: No mass. Right renal vasculature - Arterial: single. No early branch (< 1cm). - Venous: single. Right ureter: Single ureter. Mild hydronephrosis Right adrenal: Normal, no nodules or thickening Left kidney: Bosniak category 2F cyst with multiple thin enhancing internal septations involving the interpolar region of the left kidney measuring 7.8 x 7 x 7.2 cm. Along the inferior margin there is a convex protrusion favoring to represent confluence of septations (series 6 image 39). Attention on follow-up. Left renal vasculature - Arterial: single. No early branch (< 1cm). - Venous: conventional, anterior to the aorta. Left ureter: Single ureter. Mild hydronephrosis. Left adrenal: Normal, no nodules or thickening Retroperitoneal lymphadenopathy and IV involvement: None Abdomen: Liver: Normal morphology. No hepatic steatosis. No mass. Biliary: No bile duct dilation. Gallbladder is absent. Spleen: No mass. No splenomegaly. Pancreas: No mass or duct dilation. GI tract: No dilation or wall thickening. Lymph nodes (other): No abdominal or pelvic lymphadenopathy. Mesentery/Peritoneum: No ascites or mass. Vasculature: The celiac axis and SMA are patent. The portal vein and branches, splenic vein, SMV, and hepatic veins are patent. IMPRESSION: Bosniak category 2F cyst within the lower pole of the left kidney measuring 7.8 x 7 x 7.2 cm. Recommend follow-up in 6 months. Mild bilateral hydronephrosis. ACTIONABLE RESULT: FOLLOW-UP Acuity: Actionable Findings: Kidneys/Ureters/Bladder /Adrenal Routing Code: GU_1 Recommendation: MRI KIDNEY WO/W IVCON Time Frame: Additional evaluation as described in the impression COMMUNICATION: Results will be communicated with the ordering provider via [employer] staff message or phone message by Imaging Support Services within 2 business days of report finalization. Algorithms for management of incidental imaging findings can be found on the [facility] Intranet Sharepoint site at: [email or web address] [email or web address] Managing%20Incidental%2 0Findi ngs%20at%20Imaging/Form s/AllItems.aspx Human Resource Internship: GUILLE Transcribe Date/Time: Jan 21 2021 8:17A Dictated by : MALLORY AHN MD This examination was interpreted and the report reviewed and electronically signed by: MALLORY AHN MD on Jan 21 2021 8:49AM EST [id number] ACTIONABLE Invalid Interpretation Code [facility] Basic Metabolic Panlon 01-20 Anion gap [Moles/Vol] 11 mmol/L Normal 9-18 [facility] Calcium [Mass/Vol] 8.7 mg/dL Normal 8.5-10.2 [facility] Chloride [Moles/Vol] 97 mmol/L Normal 97-105 [facility] CO2 [Moles/Vol] 24 mmol/L Normal 22-30 [facility] Creatinine [Mass/Vol] 1.46 mg/dL High 0.58-0.96 [facility] eGFR- Amer. 44 Normal [facility]spital eGFR-All Other Races [address] [facility] Comment on above: Result Comment: eGFR (Estimated GFR) Units of measure: mL/min/1.73 meters squared eGFR is derived from the reexpressed MDRD Study equation using the following parameters: serum creatinine, age, gender and race. The creatinine assay has been calibrated to be traceable to IDMS. An eGFR <60 mL/min/1.73m2 for >3 months is consistent with chronic kidney disease. Refer to KDOQI guidelines for clinical interpretation. In patients with unstable renal function, e.g. those with acute kidney injury, the eGFR may not accurately reflect actual GFR. Glucose [Mass/Vol] 149 mg/dL High 74-99 [facility] Comment on above: Result Comment: The [place] Diabetes [employer] (ADA) provides guidance for cutoff values for fasting glucose and random glucose. The ADA defines fasting as no caloric intake for at least 8 hours. Fasting plasma glucose results between 100 to 125 mg/dL indicate increased risk for diabetes (prediabetes). Fasting plasma glucose results greater than or equal to 126 mg/dL meet the criteria for diagnosis of diabetes. In the absence of unequivocal hyperglycemia, results should be confirmed by repeat testing. In a patient with classic symptoms of hyperglycemia or hyperglycemic crisis, random plasma glucose results greater than or equal to 200 mg/dL meet the criteria for diagnosis of diabetes. Reference: Standards of Medical Care in Diabetes 2016, [place] [employer]. Diabetes Care. 2016.39(Suppl 1). Potassium [Moles/Vol] 3.9 mmol/L Normal 3.7-5.1 [facility] Sodium [Moles/Vol] 132 mmol/L Low 136-144 [facility]ital Urea nitrogen [Mass/Vol] 53 mg/dL High 7-21 [facility] CBCon 01-20-2021 Absolute nRBC <0.01 [facility] <0.01 [facility] E[facility]th[facility] distribution width (RBC) [Ratio] 12.8 % Normal 11.5-15.0 [facility] Hematocrit (Bld) [Volume fraction] 27.7 % Low 36.0-46.0 [facility] Hemoglobin (Bld) [Mass/Vol] 8.9 g/dL Low 11.5-15.5 [facility] MCH 24.5 pG Low 26.0-34.0 [facility] MCHC (RBC) [Mass/Vol] 32.1 g/dL Normal 30.5-36.0 [facility] MCV (RBC) [Entitic vol] 76.3 fL Low 80.0-100.0 [facility] Platelet mean volume (Bld) [Entitic vol] 11.1 fL Normal 9.0-12.7 [facility] Platelets (Bld) [#/Vol] 321 10*3/uL Normal 150-400 [facility] RBC (Bld) [#/Vol] 3.63 10*6/uL Low 3.90-5.20 [facility] WBC (Bld) [#/Vol] 11.05 10*3/uL High 3.70-11.00 [facility] CONSULT PROGon 01-20-2021 CONSULT PROG HNO ID: [id number] Author: Rajendra Cruz MD Service: Nephrology Author Type: Physician Type: Consult Progress Note Filed: 01/20/2021 1:44 PM Note Text: [facility] NEPHROLOGY CONSULT PROGRESS NOTE SERVICE DATE: January 20, 2021 SERVICE TIME: 1:39 PM SUBJECTIVE Interval History: No events over night. Some nausea this AM. Pending MR today. Medications: Allergies: Latex Rash Comment:Added based on information entered during case entry, please review and add reactions, type, and severity as needed Current Facility-Administered Medications Medication Dose Route Frequency - albuterol 2.5 mg /3 mL (0.083 %) 2.5 mg (PROVENTIL) 2.5 mg INHALATION q 4 H PRN - fluticasone-vilanterol 100-25 mcg/dose 1 Inhalation (BREO ELLIPTA) 1 Inhalation INHALATION DAILY - dextrose 40 % 15 g 15 g ORAL PRN Or - glucagon 1 mg injection 1 mg INTRAMUSCULAR PRN Or - dextrose 50% in water 25 mL syringe 12.5 g INTRAVENOUS PRN - cefTRIAXone 1 g in D5W 100 mL MB+ (ROCEPHIN) 1 g INTRAVENOUS q 24 H - insulin lispro injection (rapid acting) (HumaLOG) SUBCUTANEOUS w MEALS - insulin glargine 15 Units pen (long acting) (LANTUS SOLOSTAR, BASAGLAR KWIKPEN) 15 Units SUBCUTANEOUS AT BEDTIME - HYDROcodone 5 mg - acetaminophen 325 mg tablet (NORCO) 1 tablet ORAL q 6 H PRN - pregabalin 150 mg cap(s) (LYRICA) 150 mg ORAL TID - ondansetron (PF) 4 mg injection (ZOFRAN) 4 mg INTRAVENOUS q 6 H PRN - iv contrast (radiology procedure) INTRAVENOUS DIRECTED PRN OBJECTIVE Physical Examination: VS: BP 100/61 Pulse 85 Temp 36.9 ?C (98.4 ?F) (Oral) Resp 16 Ht 152.4 cm (5') Wt 46.3 kg (102 lb 1.2 oz) SpO2 96% BMI 19.93 kg/m? I/O: Intake/Output Summary (Last 24 hours) at 01/20/2021 1339 Last data filed at 01/20/2021 0615 Gross per 24 hour Intake ? Output 1925 ml Net -1925 ml Gen: White woman, thin and pale, conversing pleasantly, NAD HENT: NCAT Eyes: PERRL, Anicteric Neck:Trachea midline, No JVD Respiratory: Clear bilaterally CV: RRR. No murmurs, rubs, or gallops Abdomen: Soft, non-tender, non-distended. Normal bowel sounds. Extremities: No clubbing or cyanosis of digits. No lower extremity edema bilaterally. : Chaves draining light yellow urine Skin: No rashes, numerous tattoos Neurologic: AAOx3 Data: Labs: Recent Labs 01/20/21 0423 01/19/21 0538 01/19/21 0537 01/19/21 0016 01/18/21 1743 01/18/21 0556 01/17/21 1710 01/17/21 1710 CREAT 1.46* -- 1.92* 1.93* 2.21* 2.59* < > 2.93* BUN 53* -- 77* 82* 93* 97* < > 104* NA 132* -- 128* 122* 123* 130* < > 120* K 3.9 -- 4.2 3.8 3.7 4.7 < > 5.5* CHLOR 97 -- 93* 88* 88* 93* < > 83* CO2 24 -- 24 23 22 21* < > 20* ANION 11 -- 11 11 13 16 < > 17 GLUC 149* -- 268* 292* 253* 130* < > 216* CA 8.7 -- 8.5 8.3* 8.8 9.0 < > 9.6 MG -- -- -- -- -- 1.9 -- 2.0 ALB -- -- -- -- -- -- -- 3.0* WBC 11.05* 12.14* -- -- -- 17.03* -- 17.33* HB 8.9* 9.1* -- -- -- 9.9* -- 11.3* HCT 27.7* 27.5* -- -- -- 31.2* -- 35.1* PLT 321 297 -- -- -- 310 -- 345 < > = values in this interval not displayed. Recent Labs 01/18/21 0556 01/17/21 1748 LACT 0.9 0.94 Imagin01/20/21 MR Kidney - Pending ASSESSMENT AND PLAN Pt is a 60 year old white woman with a medical history significant for DM2, COPD, who presented with worsening generalized weakness and falls, with 20 pound weight loss found to have bilateral hydroureteronephrosis and dilated bladder, with cystic lesion of left kidney. Nephrology consulted due to ANATOLIY and hyponatremia. ? ANATOLIY with normal baseline in 08/09. Appears obstructive in nature. Improving s/p chaves placement. Urinary retention - S/p chaves placement. Plan for continued chaves catheter at time of DC with outpatient urology follow up, cystoscopy, and urodynamics. Proteus urinary tract infection - 01/17 culture growing proteus. S/p 4 days of ceftriaxone at this point. ? Hyponatremia - Secondary to free water intake in setting of impaired free water excretion due to ANATOLIY/obstruction. With appropriate urinary dilution. Improving with time and urine output. ? Left lower pole lesion - Appears to be a complex cyst. She 'thinks' this was evaluated in the past by an outside urologist, Dr. Kimble with routine scans, but she is unsure of exact diagnosis or management thoughts. Needs re-evaluation. Plan: -Renal function and sodium balance continue to improve -OK with MR kidney to evaluate mass. -Continue chaves catheter with outpatient management per urology Nephrology will sign off at this point. Please call with further questions or concerns. SIGNATURE: Rajendra Chavarria MD PATIENT NAME: Aislinn Wheeler DATE: January 20, 2021 1:43 PM PHONE: [phone] FOR AFTER HOUR CONCERNS BETWEEN 7PM - 7AM CONTACT ON-CALL NEPHROLOGY STAFF Normal [facility] THERAPY [facility] 01-20-2021 THERAPY NT HNO ID: [id number] Author: Afia Radford, PT Service: Physical Therapy Author Type: Physical Therapist Type: Therapy (PT/OT/Speech/Resp) Filed: 01/20/2021 3:32 PM Note Text: Physical Therapy Treatment SERVICE DATE: 01/20/2021 SERVICE TIME: 1330 to 1353 ROOM: [place] [address] Recommended Discharge Disposition: Home PT Recommended Discharge Disposition Comments: During therapy today, there was times where the patient lost balance and swayed, we recomend someone someone is with her while ambulating and negotiating curb step. Anticipated Discharge Needs: Equipment;Supervision at Home Physical Assist at Home for: Ambulation;Transfers Supervision at Home due to: Decreased safety awareness Recommended Discharge Equipment: Wheeled Walker PT 6 Clicks Score: 22 Precautions/Activity Restrictions: Fall Risk Current Hospital Course: sepsis, ANATOLIY, creatinine of 2.93mg/dL with hyponatremia and hyperkalemia. She had a CT scan non-contrast done in the ED which showed moderate bilateral hydroureteronephrosis with findings of mildly dilated bladder with lobulated bladder wall suggestive of bladder outlet obstruction. She also was noted to have a large complex cystic mass of the left kidney. Reason for Hospital Admission: weakness x6 months Relevant Past Medical History: DM, asthma Response to Therapy Interventions: Good participation in activities, Notable progression with functional activities/skills Physical Therapy Problem List: Functional Mobility Impairment Treatment Interventions: Education;Functional Mobility Training Home Environment Patient Lives With: Other: See Comment (lives with 10 year old grandson, ex-hus, ) Assistance Available: 24 Hour;Other: See Comment (grandson is done with school at home) Entry To Home: Stairs;Without Rail Number Of Stairs Into Home: 1 Number Of Stairs To Bed/Bath: 0 Tub/Shower Type: tub shower Laundry: basement, [id number] Equipment Owned: Cane;Standard Walker Prior Functional Level: Required Assistance Assistance Required With: Transfers;Cleaning;Laun dry;Meals;Transportatio n;Shopping;Self Care Prior Functional Level Comments: Pt reports the last 6 months not being able to walk, dtrs have been carrying her to the bathroom, otherwise has been bed bound (25 yr old granddtr and DIL come over to help) Patient Report: I am feeling a little tired from excercising today. CURRENT FUNCTIONAL STATUS: Most recent performance Current Functional Mobility Assist Level Additional Information Rolling Supine to Sit Independent Sit to Supine Independent Scooting Independent Sit to Stand Verbal Cues Only;Additional Information patient needed verbal que to push from the bed and not not grabing the walker to stand Stand to Sit Verbal Cues Only Bed to Chair Toilet/Commode Gait Contact Guard Assistance Gait Device: Wheeled Walker Gait Distance (feet): 55x2 Stairs Curb Step Contact Guard Assistance;Additional Information Device: Wheeled Walker upon initial step patient began to become unstable falling backwards requiring hands on assist. Car Transfer Blank shankar indicate activity not attempted General Deviations/Observations : Loss of Balance;Lateral sway increased JH-HLM: 7: Walk 25 feet or more Learning/Educational Needs: Discharge Plan;Functional Activities/Mobility;Jeffrey n Management;Safety Goals for Plan of Care: Patient /Caregiver Goals: Go Home Goals: Patient will demonstrate progress with functional mobility to allow safe discharge to home with available support and/or physical assistance. Progress Toward Goals: Progressing slower than expected Due To: patient had a loss of balance twice while ambulating. Rehab Potential: Good Patient will be discontinued from Physical Therapy when no further skilled needs are identified in this setting. PLAN: Treatment Frequency (times per week): 3 Current admission Plan of Care developed with: Patient TREATMENT INTERVENTIONS: Therapy Diagnosis: Reduced mobility-other Interventions Provided: Gait Training (43284);Therapeutic Exercise (92252) Therapeutic Exercise (88499) Treatment Minutes: 8 Pt performed in supine position: AP, QS, GS x 10 B LE, pt instructed to do every hour while awake on their own. 7 days a week, HS, hip ABD, SAQ, SLR 10-20 reps/ 2-3x/day/ 7 days/week Gait Training (70248) Treatment Minutes: 15 $ Gait Training (48003) Billed Units: 1 unit Training AND education provided in: Assistive device use, Curb step navigation, Exercise program, Handout issued The following therapeutic skills were used: Activity dosing, Cuing verbal, Cuing tactile Total Timed Code Treatment Minutes: 23 Total Treatment Time (minutes): 23 Please see discipline specific clinical documentation flowsheet for complete details for this therapy evaluation/treatment. SIGNATURE: Allen Syed, Student PT PATIENT NAME: Aislinn Wheeler DATE: January 20, 2021 TIME: (more content not included)... [facility] THERAPY NT HNO ID: [id number] Author: Heidy Wright OT/L Service: Occupational Therapy Author Type: Occupational Therapist Type: Therapy (PT/OT/Speech/Resp) Filed: 01/20/2021 12:15 PM Note Text: Occupational Therapy Treatment SERVICE DATE: 01/20/2021 SERVICE TIME: 1155 to 1205 ROOM: [place] [address] Recommended Discharge Disposition: Home OT Recommended Discharge Disposition Comments: Pt is SBA in her room for ADLs and was able to transfer from bed to chair with WW. Pt reports she can complete ADLs at home by herself but needs to be carried to the bathroom/tub, etc. Pt reports she does not have insurance until February is so rehab likely is possible. Home OT is recommended for safety evaluation, AE/DME needs, family training (ex- is ill and cannot assist, 10 year old grandson lives there, and 2 other granddaughter are away for summer), and to increase strength and IND in self-care tasks and functional mobility in the home. Anticipated Discharge Needs: Physical Assist at Home Physical Assist at Home for: Cleaning;Laundry;Meals; Shopping;Transportation Recommended Discharge Equipment: Extended tub bench;Wheeled Walker;Commode-Bedside OT 6 Clicks Score: 24 Precautions/Activity Restrictions: Fall Risk Current Hospital Course: sepsis, ANATOLIY, creatinine of 2.93mg/dL with hyponatremia and hyperkalemia. She had a CT scan non-contrast done in the ED which showed moderate bilateral hydroureteronephrosis with findings of mildly dilated bladder with lobulated bladder wall suggestive of bladder outlet obstruction. She also was noted to have a large complex cystic mass of the left kidney. Reason for Hospital Admission: weakness x6 months Relevant Past Medical History: DM, asthma Response to Therapy Interventions: Good participation in activities Continue skilled needs due to: (d/c OT) Cognition/Communication Deficits Responsiveness: Alert, Awake Follows Commands: 2-step Commands Treatment Interventions: Education;Self Care / Home Management;Strengthenin g;Functional Mobility Training Plan for next visit: (d/c OT) Home Environment Patient Lives With: Other: See Comment (lives with 10 year old grandson, ex-hus, ) Assistance Available: 24 Hour;Other: See Comment (grandson is done with school at home) Entry To Home: Stairs;Without Rail Number Of Stairs Into Home: 1 Number Of Stairs To Bed/Bath: 0 Tub/Shower Type: tub shower Laundry: basement, [id number] Equipment Owned: Cane;Standard Walker Prior Functional Level: Required Assistance Assistance Required With: Transfers;Cleaning;Laun dry;Meals;Transportatio n;Shopping;Self Care Prior Functional Level Comments: Pt reports the last 6 months not being able to walk, granddtrs have been carrying her to the bathroom, otherwise has been bed bound (25 yr old granddtr and DIL come over to help) Patient Report: This feels good to get up. CURRENT FUNCTIONAL STATUS: Most recent performance Current Activities of Daily Living Assist Level Additional Information Feeding Set Up Grooming Set Up Bathing Upper Body Set Up Bathing Lower Body Set Up Dressing Upper Body Set Up Dressing Lower Body Set Up Toileting Set Up Instrumental Activities of Daily Living Assist Level Additional Information Meal/Beverage Prep Maximal Assistance Cleaning Maximal Assistance Laundry Maximal Assistance Medication Management with Strategies Functional Mobility Assist Level Additional Information Rolling Supine to Sit Stand By Assistance Sit to Supine Scooting Sit to Stand Stand By Assistance Stand to Sit Stand By Assistance Bed to Chair Stand By Assistance Wheeled Walker Toilet/Commode Shower Functional Mobility Stand By Assistance Wheeled Walker Blank shankar indicate activity not attempted Learning/Educational Needs: Discharge Plan;Family Education/Training;Equi pment;Functional Activities/Mobility;Zoey n of Care;Safety;Self Care Goals for Plan of Care: Patient /Caregiver Goals: Go Home Goals: Patient will demonstrate progress with self-care, cognitive and/or coping needs identified to allow safe discharge to home with available support and/or physical assistance. Progress Toward Goals: Progressing as expected Rehab Potential: Good Patient will be discontinued from Occupational Therapy when no further skilled needs are identified in this setting. PLAN: Treatment Frequency (times per week): Discontinue Therapy Services Reasons Therapy Services Discontinued: Goals met Current admission Plan of Care developed with: Patient TREATMENT INTERVENTIONS: Therapy Diagnosis: Reduced mobility-other;Decrease d activities of daily living (ADL);Muscle Weakness (generalized);General symptoms and signs-other Interventions Provided: Self Long-Term Management (40514) Self Long-Term Management (68485) Treatment Minutes: 10 $ Self Long-Term Management (89792) Billed Units: 1 unit Training AND education provided in: Benefits of in (more content not included)... [facility] THERAPY NT HNO ID: [id number] Author: KRUNAL Navarro Service: Occupational Therapy Author Type: Occupational Therapist Type: Therapy (PT/OT/Speech/Resp) Filed: 01/20/2021 8:24 AM Note Text: OCCUPATIONAL THERAPY MISSED VISIT SERVICE DATE: 01/20/2021 SERVICE TIME: 0820 to 0820 ROOM: [place] [address] Attempted Treatment. Patient not seen due to Declined. Pt states, It's too early when OT attempted to work with her. Will re-attempt as schedule permits. SIGNATURE: KRUNAL Navarro PATIENT NAME: Aislinn Wheeler DATE: January 20, 2021 TIME: 8:24 AM [facility] Basic Metabolic Panlon 01-19 Anion gap [Moles/Vol] 11 mmol/L Normal 9-18 [facility] Calcium [Mass/Vol] 8.5 mg/dL Normal 8.5-10.2 [facility] Chloride [Moles/Vol] 93 mmol/L Low 97-105 [facility] CO2 [Moles/Vol] 24 mmol/L Normal 22-30 [facility] Creatinine [Mass/Vol] 1.92 mg/dL High 0.58-0.96 [facility] eGFR- Amer. 32 Normal [facility] eGFR-All Other Races [address] [facility] Comment on above: Result Comment: eGFR (Estimated GFR) Units of measure: mL/min/1.73 meters squared eGFR is derived from the reexpressed MDRD Study equation using the following parameters: serum creatinine, age, gender and race. The creatinine assay has been calibrated to be traceable to IDMS. An eGFR <60 mL/min/1.73m2 for >3 months is consistent with chronic kidney disease. Refer to KDOQI guidelines for clinical interpretation. In patients with unstable renal function, e.g. those with acute kidney injury, the eGFR may not accurately reflect actual GFR. Glucose [Mass/Vol] 268 mg/dL High 74-99 [facility] Comment on above: Result Comment: The [place] [employer] (ADA) provides guidance for cutoff values for fasting glucose and random glucose. The ADA defines fasting as no caloric intake for at least 8 hours. Fasting plasma glucose results between 100 to 125 mg/dL indicate increased risk for diabetes (prediabetes). Fasting plasma glucose results greater than or equal to 126 mg/dL meet the criteria for diagnosis of diabetes. In the absence of unequivocal hyperglycemia, results should be confirmed by repeat testing. In a patient with classic symptoms of hyperglycemia or hyperglycemic crisis, random plasma glucose results greater than or equal to 200 mg/dL meet the criteria for diagnosis of diabetes. Reference: Standards of Medical Care in Diabetes 2016, [place] [employer]. Diabetes Care. 2016.39(Suppl 1). Potassium [Moles/Vol] 4.2 mmol/L Normal 3.7-5.1 [facility] Sodium [Moles/Vol] 128 mmol/L Low 136-144 [facility] Urea nitrogen [Mass/Vol] 77 mg/dL High 7-21 [facility] Anion gap [Moles/Vol] 11 mmol/L Normal 9-18 [facility] Calcium [Mass/Vol] 8.3 mg/dL Low 8.5-10.2 [facility] Chloride [Moles/Vol] 88 mmol/L Low 97-105 [facility] CO2 [Moles/Vol] 23 mmol/L Normal 22-30 [facility] Creatinine [Mass/Vol] 1.93 mg/dL High 0.58-0.96 [facility] eGFR- Amer. 32 Normal [facility] eGFR-All Other Races [address] [facility] Comment on above: Result Comment: eGFR (Estimated GFR) Units of measure: mL/min/1.73 meters squared eGFR is derived from the reexpressed MDRD Study equation using the following parameters: serum creatinine, age, gender and race. The creatinine assay has been calibrated to be traceable to IDMS. An eGFR <60 mL/min/1.73m2 for >3 months is consistent with chronic kidney disease. Refer to KDOQI guidelines for clinical interpretation. In patients with unstable renal function, e.g. those with acute kidney injury, the eGFR may not accurately reflect actual GFR. Glucose [Mass/Vol] 292 mg/dL High 74-99 [facility] Comment on above: Result Comment: The [place] [employer] (ADA) provides guidance for cutoff values for fasting glucose and random glucose. The ADA defines fasting as no caloric intake for at least 8 hours. Fasting plasma glucose results between 100 to 125 mg/dL indicate increased risk for diabetes (prediabetes). Fasting plasma glucose results greater than or equal to 126 mg/dL meet the criteria for diagnosis of diabetes. In the absence of unequivocal hyperglycemia, results should be confirmed by repeat testing. In a patient with classic symptoms of hyperglycemia or hyperglycemic crisis, random plasma glucose results greater than or equal to 200 mg/dL meet the criteria for diagnosis of diabetes. Reference: Standards of Medical Care in Diabetes 2016, [place] [employer]. Diabetes Care. 2016.39(Suppl 1). Potassium [Moles/Vol] 3.8 mmol/L Normal 3.7-5.1 [facility] Sodium [Moles/Vol] 122 mmol/L Low 136-144 [facility] Urea nitrogen [Mass/Vol] 82 mg/dL High 7-21 [facility] CBCon 01-19-2021 Absolute nRBC <0.01 Normal <0.01 [facility] Erythrocyte distribution width (RBC) [Ratio] 12.8 % Normal 11.5-15.0 [facility] Hematocrit (Bld) [Volume fraction] 27.5 % Low 36.0-46.0 [facility] Hemoglobin (Bld) [Mass/Vol] 9.1 g/dL Low 11.5-15.5 [facility] MCH 24.9 pG Low 26.0-34.0 [facility] MCHC (RBC) [Mass/Vol] 33.1 g/dL Normal 30.5-36.0 [facility] MCV (RBC) [Entitic vol] 75.1 fL Low 80.0-100.0 [facility] Platelet mean volume (Bld) [Entitic vol] 11.2 fL [facility] ([facility]ld[facility] [#/Vol] 297 10*3/uL Normal 150-400 [facility] RBC (Bld) [#/Vol] 3.66 10*6/uL Low 3.90-5.20 [facility] WBC (Bld) [#/Vol] 12.14 10*3/uL High 3.70-11.00 [facility] CONSULT PROGon 01-19-2021 CONSULT PROG HNO ID: [id number] Author: Rajendra Cruz MD Service: Nephrology Author Type: Physician Type: Consult Progress Note Filed: 01/19/2021 2:40 PM Note Text: [facility] NEPHROLOGY CONSULT PROGRESS NOTE SERVICE DATE: January 19, 2021 SERVICE TIME: 2:27 PM SUBJECTIVE Interval History: No events over night. No new complaints this AM. Many questions about her care. Medications: Allergies: Latex Rash Comment:Added based on information entered during case entry, please review and add reactions, type, and severity as needed Current Facility-Administered Medications Medication Dose Route Frequency - albuterol 2.5 mg /3 mL (0.083 %) 2.5 mg (PROVENTIL) 2.5 mg INHALATION q 4 H PRN - fluticasone-vilanterol 100-25 mcg/dose 1 Inhalation (BREO ELLIPTA) 1 Inhalation INHALATION DAILY - dextrose 40 % 15 g 15 g ORAL PRN Or - glucagon 1 mg injection 1 mg INTRAMUSCULAR PRN Or - dextrose 50% in water 25 mL syringe 12.5 g INTRAVENOUS PRN - cefTRIAXone 1 g in D5W 100 mL MB+ (ROCEPHIN) 1 g INTRAVENOUS q 24 H - insulin lispro injection (rapid acting) (HumaLOG) SUBCUTANEOUS w MEALS - insulin glargine 15 Units pen (long acting) (LANTUS SOLOSTAR, BASAGLAR KWIKPEN) 15 Units SUBCUTANEOUS AT BEDTIME - HYDROcodone 5 mg - acetaminophen 325 mg tablet (NORCO) 1 tablet ORAL q 6 H PRN - pregabalin 150 mg cap(s) (LYRICA) 150 mg ORAL TID OBJECTIVE Physical Examination: VS: BP 96/65 Pulse 85 Temp 36.6 ?C (97.9 ?F) (Oral) Resp 14 Ht 152.4 cm (5') Wt 44.1 kg (97 lb 3.6 oz) SpO2 95% BMI 18.99 kg/m? I/O: Intake/Output Summary (Last 24 hours) at 01/19/2021 1427 Last data filed at 01/19/2021 1425 Gross per 24 hour Intake 480 ml Output 2150 ml Net -1670 ml Gen: White woman, thin and pale, conversing pleasantly, NAD HENT: NCAT Eyes: PERRL, Anicteric Neck:Trachea midline, No JVD Respiratory: Clear bilaterally CV: RRR. No murmurs, rubs, or gallops Abdomen: Soft, non-tender, non-distended. Normal bowel sounds. Extremities: No clubbing or cyanosis of digits. No lower extremity edema bilaterally. : Chaves draining light yellow urine Skin: No rashes, numerous tattoos Neurologic: AAOx3 Data: Labs: Recent Labs 01/19/21 0538 01/19/21 0537 01/19/21 0016 01/18/21 1743 01/18/21 0556 01/17/21 1710 CREAT -- 1.92* 1.93* 2.21* 2.59* 2.93* BUN -- 77* 82* 93* 97* 104* NA -- 128* 122* 123* 130* 120* K -- 4.2 3.8 3.7 4.7 5.5* CHLOR -- 93* 88* 88* 93* 83* CO2 -- 24 23 22 21* 20* ANION -- 11 11 13 16 17 GLUC -- 268* 292* 253* 130* 216* CA -- 8.5 8.3* 8.8 9.0 9.6 MG -- -- -- -- 1.9 2.0 ALB -- -- -- -- -- 3.0* WBC 12.14* -- -- -- 17.03* 17.33* HB 9.1* -- -- -- 9.9* 11.3* HCT 27.5* -- -- -- 31.2* 35.1* PLT 297 -- -- -- 310 345 Recent Labs 01/18/21 0556 01/17/21 1748 LACT 0.9 0.94 Imagin01/17/21 CT Abdomen without - Personally reviewed images. Bilateral hydronephrosis and hydroureter with distended and thick walled bladder. Left lower pole mass which appears consistent with complex cyst. ASSESSMENT AND PLAN Pt is a 60 year old white woman with a medical history significant for DM2, COPD, who presented with worsening generalized weakness and falls, with 20 pound weight loss found to have bilateral hydroureteronephrosis and dilated bladder, with cystic lesion of left kidney. Nephrology consulted due to ANATOLIY and hyponatremia. ? ANATOLIY with normal baseline in 08/09. Appears obstructive in nature. Improving s/p chaves placement. Urinary retention - S/p chaves placement. ? Hyponatremia - Secondary to free water intake in setting of impaired free water excretion due to ANATOLIY/obstruction. With appropriate urinary dilution. Improving with time and urine output. ? Left lower pole lesion - Appears to be a complex cyst. She 'thinks' this was evaluated in the past by an outside urologist, Dr. Kimble with routine scans, but she is unsure of exact diagnosis or management thoughts. Needs re-evaluation. Plan: -OK with MR kidney to evaluate mass. -Continue chaves catheter with outpatient management per urology -Hold further IV fluids at this point -Drink to thirst, no need to push fluids Will follow SIGNATURE: Rajendra Chavarria MD PATIENT NAME: Aislinn Wheeler DATE: January 19, 2021 2:27 PM PHONE: [phone] FOR AFTER HOUR CONCERNS BETWEEN 7PM - 7AM CONTACT ON-CALL NEPHROLOGY STAFF [facility] NUTRITIONon 01-19-2021 NUTRITION HNO ID: [id number] Author: Michelle Louis RD Service: Nutrition Therapy Author Type: Registered Dietitian Type: Nutrition Filed: 01/19/2021 11:49 AM Note Text: NUTRITION THERAPY INITIAL ASSESSMENT SERVICE DATE: 01/19/2021 SERVICE TIME: 1030 Nutrition Assessment: Recommended Malnutrition Diagnosis: Severe Protein-Calorie Malnutrition In the context of: Acute Illness or Injury Based on: Insufficient Energy Intake;Subcutaneous Fat Loss;Muscle Loss Nutrition Diagnosis: Problem: Suboptimal oral intake Related to: (decreased appetite) As evidenced by: Depletion of fat/muscle stores;Food/nutrition related history;Intake records;Patient/family self-report;Weight loss;Nausea;Vomiting Estimated kilocalorie needs: 7412-7672 Calorie Calculation Method: 30-35 kcals/kg Estimated protein needs (grams): 66-88 Grams protein determined by: 1.5 - 2.0 g/kg Care Plan: Continue current diet Supplements: Mighty Shake No Sugar Added (strawberry banana) Vitamins and Minerals: Multivitamin with minerals Labs: Hemoglobin A1C Monitor and Evaluation: Meet greater than 75% of estimated needs;Monitor bowel function;Monitor fluid/electrolyte balance;Monitor labs, I/Os, vital signs, weight Discharge Recommendations: Diet;Oral Supplements Diet: carbohydrate controlled diet Oral Supplements: mighty shake no sugar added or equivalent HPI: Per Trevor Porras MD on 01/17/21 Aislinn Wheeler is a 60 y/o F with a PMH sig for DMII, COPD who presents with worsening generalized weakness and falls, found to have sepsis and ANATOLIY secondary to UTI likely precipitated by acute bilateral obstructive uropathy as seen on imaging. Daughter reports that for the last 6 months the patient has lost a lot of weight, has been increasingly weak and has been sleeping a lot. ?She has also been feeling dizzy. ?She has had numerous falls in the past 6 months. ?She is following most every day the past month. ?She seems a bit unlike herself that she is so fatigued that these times. ?She has been having this urinary incontinence for approximately 6 months now. ?It is not gotten any better. ?Daughter is taken the patient to numerous different hospitals admits that suspect it is secondary to her diabetes. Pt is so weak that she cannot take care of herself currently. ?She has lost about 20 pounds in the past month or so. ?She is not confused. ?The patient denies any somatic complaints. ?Denies any chest pain, shortness of breath, abdominal pain, diarrhea, fever, or chills. Intake History: Nutrition Intake Prior to Admission: Less than 50% estimated energy needs greater than or equal to 3 months Pt reports eating less than 50% usual intake over past 6 months. Reports N/V and abdominal pain. Pt having diarrhea thought to be d/t antibiotics. Per pt, blood sugars have been low following DKA in July 2020. Pt reports checking blood sugars twice daily. Consider checking HgA1C to better see how blood sugars have been lately at home. Pt not interested in diet supplements. Agreeable to mighty shake no sugar added. Current Intake: 0-25% estimated energy needs Over: 2 days Diet Orders (From admission, onward) Start Ordered 01/18/21 1000 DIET CARBOHYDRATE CONTROLLED START NOW Question: Carbohydrate Control Answer: 3-5 CARBS/MEAL 01/18/21 0956 Anthropometrics: Height: 152.4 cm (5') Weight: 44.1 kg (97 lb 3.6 oz) Dosing Weight: 44.1 kg (97 lb 3.6 oz) (standing wt) Usual Weight: 56.7 kg (125 lb) Body mass index is 18.99 kg/m?. Normal Weight change percentage over time: -12.6kg x6 months (22.2%); clinically significant Physical Exam: Subcutaneous fat loss: Moderate Muscle loss: Moderate Potential micronutrient deficiency: No deficiency identified Edema/Ascites: No edema GI Symptoms: Nausea;Vomiting;Abdomin al pain;Diarrhea Functional Status: Unable to assess Potential Signs of Inflammation: Hyperglycemia;Hypoalbum inemia;Microbiologic cultures;Leukocytosis;S epsis;Chronic condition;High CRP;Imaging studies MNT Billing Type: Initial Assess/15 min 4 units SIGNATURE: Chelsea Holder RD PATIENT NAME: Aislinn Wheeler DATE: January 19, 2021 TIME: 10:59 AM PAGER: [phone] I have reviewed the nutritional assessment note documented by the general internist and physician leader and I personally participated in the miller components. I have discussed the case and nutritional management of the patient's care. Michelle Louis MS,RD,LD,[facility] THERAPY NTon 01-19-2021 THERAPY NT HNO ID: [id number] Author: Afia Radford, PT Service: Physical Therapy Author Type: Physical Therapist Type: Therapy (PT/OT/Speech/Resp) Filed: 01/19/2021 2:57 PM Note Text: Physical Therapy Evaluation SERVICE DATE: 01/19/2021 SERVICE TIME: 1307 to 1331 ROOM: [place] [address] Recommended Discharge Disposition: Home PT Anticipated Discharge Needs: Physical Assist at Home Physical Assist at Home for: Cleaning;Laundry;Meals; Shopping;Transportation Recommended Discharge Equipment: Wheeled Walker PT 6 Clicks Score: 23 Precautions/Activity Restrictions: Fall Risk Current Hospital Course: sepsis, ANATOLIY, creatinine of 2.93mg/dL with hyponatremia and hyperkalemia. She had a CT scan non-contrast done in the ED which showed moderate bilateral hydroureteronephrosis with findings of mildly dilated bladder with lobulated bladder wall suggestive of bladder outlet obstruction. She also was noted to have a large complex cystic mass of the left kidney. Reason for Hospital Admission: weakness x6 months Relevant Past Medical History: DM, asthma Response to Therapy Interventions: Good participation in activities Continue skilled needs due to: Functional mobility/skill impairments Physical Therapy Problem List: Decreased Strength;Functional Mobility Impairment Treatment Interventions: Education;Strengthening ;Functional Mobility Training Home Environment Patient Lives With: Other: See Comment (lives with 10 year old grandson, ex-hus, ) Assistance Available: 24 Hour;Other: See Comment (grandson is done with school at home) Entry To Home: Stairs;Without Rail Number Of Stairs Into Home: 1 Number Of Stairs To Bed/Bath: 0 Tub/Shower Type: tub shower Laundry: basement, [id number] Equipment Owned: Cane;Standard Walker Prior Functional Level: Required Assistance Assistance Required With: Transfers;Cleaning;Laun dry;Meals;Transportatio n;Shopping;Self Care Prior Functional Level Comments: Pt reports the last 6 months not being able to walk, granddtrs have been carrying her to the bathroom, otherwise has been bed bound (25 yr old granddtr and DIL come over to help) CURRENT FUNCTIONAL STATUS: Most recent performance Current Functional Mobility Assist Level Additional Information Rolling Supine to Sit Stand By Assistance (HOB flat, OOB to R, no difficulty) Sit to Supine Scooting Sit to Stand Stand By Assistance Stand to Sit Stand By Assistance Bed to Chair Toilet/Commode Gait Stand By Assistance Gait Device: Wheeled Walker;With Wheelchair Follow Gait Distance (feet): 60x2 Stairs Curb Step Car Transfer Blank shankar indicate activity not attempted General Deviations/Observations : Aysha decreased Range of Motion: WFL Strength: WFL (B LE atleast 3/5) -HLM: 7: Walk 25 feet or more Learning/Educational Needs: Discharge Plan;Functional Activities/Mobility;Zoey n of Care;Rehabilitation Techniques and Procedures Goals for Plan of Care: Patient /Caregiver Goals: Go Home Goals: Patient will demonstrate progress with functional mobility to allow safe discharge to home with available support and/or physical assistance. Rehab Potential: Good Patient will be discontinued from Physical Therapy when no further skilled needs are identified in this setting. PLAN: Treatment Frequency (times per week): 2 Current admission Plan of Care developed with: Patient TREATMENT INTERVENTIONS: Therapy Diagnosis: Reduced mobility-other Interventions Provided: Evaluation;Therapeutic Exercise (14933);Gait Training (32858) $ Evaluation-Low (46484) Billed Units: 1 unit Therapeutic Exercise (41076) Treatment Minutes: 1 Patient performed in seated position: Marching, AP/HR, hip ABD, LAQ x10 B LE- instructions written on white board for pt to complete on her own. Gait Training (29775) Treatment Minutes: 8 $ Gait Training (97496) Billed Units: 1 unit Training AND education provided in: Assistive device use, Bed mobility, Benefits of in-hospital mobility, Discharge planning, Exercise program, Gait pattern, reduction of deviations, Pre-gait activities, Role of Physical Therapy The following therapeutic skills were used: Activity dosing, Cues for sequencing/proper technique for activity, Repetitive task learning, Task analysis learning, Teach-back for education Total Timed Code Treatment Minutes: 9 Total Treatment Time (minutes): 24 Please see discipline specific clinical documentation flowsheet for complete details for this therapy evaluation/treatment. SIGNATURE: Afia Radford, PT PATIENT NAME: Aislinn Wheeler DATE: January 19, 2021 TIME: 2:55 PM Additional personnel present during visit: Aleksander Syed, DELFIN Normal [facility] Basic Metabolic Panlon 01-18 Anion gap [Moles/Vol] 13 mmol/L Normal 9-18 [facility] Calcium [Mass/Vol] 8.8 mg/dL Normal 8.5-10.2 [facility] Chloride [Moles/Vol] 88 mmol/L Low 97-105 [facility] CO2 [Moles/Vol] 22 mmol/L Normal 22-30 [facility] Creatinine [Mass/Vol] 2.21 mg/dL High 0.58-0.96 [facility] eGFR- Amer. 27 Normal [facility] eGFR-All Other Races 23 . Normal [facility] Comment on above: Result Comment: eGFR (Estimated GFR) Units of measure: mL/min/1.73 meters squared eGFR is derived from the reexpressed MDRD Study equation using the following parameters: serum creatinine, age, gender and race. The creatinine assay has been calibrated to be traceable to IDMS. An eGFR <60 mL/min/1.73m2 for >3 months is consistent with chronic kidney disease. Refer to KDOQI guidelines for clinical interpretation. In patients with unstable renal function, e.g. those with acute kidney injury, the eGFR may not accurately reflect actual GFR. Glucose [Mass/Vol] 253 mg/dL High 74-99 [facility] Comment on above: Result Comment: The [place] [employer] Association (ADA) provides guidance for cutoff values for fasting glucose and random glucose. The ADA defines fasting as no caloric intake for at least 8 hours. Fasting plasma glucose results between 100 to 125 mg/dL indicate increased risk for diabetes (prediabetes). Fasting plasma glucose results greater than or equal to 126 mg/dL meet the criteria for diagnosis of diabetes. In the absence of unequivocal hyperglycemia, results should be confirmed by repeat testing. In a patient with classic symptoms of hyperglycemia or hyperglycemic crisis, random plasma glucose results greater than or equal to 200 mg/dL meet the criteria for diagnosis of diabetes. Reference: Standards of Medical Care in Diabetes 2016, [place] [employer]. Diabetes Care. 2016.39(Suppl 1). Potassium [Moles/Vol] 3.7 mmol/L Normal 3.7-5.1 [facility] Sodium [Moles/Vol] 123 mmol/L Low 136-144 [facility] Urea nitrogen [Mass/Vol] 93 mg/dL High 7-21 [facility] Anion gap [Moles/Vol] 16 mmol/L Normal 9-18 [facility] Calcium [Mass/Vol] 9.0 mg/dL Normal 8.5-10.2 [facility] Chloride [Moles/Vol] 93 mmol/L Low 97-105 [facility] CO2 [Moles/Vol] 21 mmol/L Low 22-30 [facility] Creatinine [Mass/Vol] 2.59 mg/dL High 0.58-0.96 [facility] eGFR- Amer. 23 Normal [facility] eGFR-All Other Races [address] [facility] Comment on above: Result Comment: eGFR (Estimated GFR) Units of measure: mL/min/1.73 meters squared eGFR is derived from the reexpressed MDRD Study equation using the following parameters: serum creatinine, age, gender and race. The creatinine assay has been calibrated to be traceable to IDMS. An eGFR <60 mL/min/1.73m2 for >3 months is consistent with chronic kidney disease. Refer to KDOQI guidelines for clinical interpretation. In patients with unstable renal function, e.g. those with acute kidney injury, the eGFR may not accurately reflect actual GFR. Glucose [Mass/Vol] 130 mg/dL High 74-99 [facility] Comment on above: Result Comment: The [place] Diabetes [employer] (ADA) provides guidance for cutoff values for fasting glucose and random glucose. The ADA defines fasting as no caloric intake for at least 8 hours. Fasting plasma glucose results between 100 to 125 mg/dL indicate increased risk for diabetes (prediabetes). Fasting plasma glucose results greater than or equal to 126 mg/dL meet the criteria for diagnosis of diabetes. In the absence of unequivocal hyperglycemia, results should be confirmed by repeat testing. In a patient with classic symptoms of hyperglycemia or hyperglycemic crisis, random plasma glucose results greater than or equal to 200 mg/dL meet the criteria for diagnosis of diabetes. Reference: Standards of Medical Care in Diabetes 2016, [place] [employer]. Diabetes Care. 2016.39(Suppl 1). Potassium [Moles/Vol] 4.7 mmol/L Normal 3.7-5.1 [facility] Sodium [Moles/Vol] 130 mmol/L Low 136-144 [facility] Urea nitrogen [Mass/Vol] 97 mg/dL High 7-21 [facility] CASE MGT INIT [facility] 2020 [facility] [id number] Author: Ekta Landin RN Service: ? 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 A Patient/Lathing Supervisor Stated Goals: To have reduction in pain;To improve my functional status;To return home to life as it was;Other Goal Health Issues Impacting Discharge Plan: Newly diagnosed;Chronic Newly Diagnosed: bilateral hydronephrosis, distended bladder, ANATOLIY, cystic left renal mass, and urinary tract infection Chronic: DM, COPD Last Discharge Date: N/A Is this Within the Past 30 days? Last discharge within 30 days: Yes Is this a planned readmission?: No Unplanned Reason: Infection Followed Up with Appointment Prior to Admission: No appointment scheduled Advance Directive: Current Advance Directive: None Operations Superintendent Attempted to Assist with AD Completion: Yes Action: Education Provided (Patient not interested at this time) Health LiteracyHow often do you need to have someone help you when you read instructions, pamphlets, or other written material from your doctor or pharmacy? : 1 - Never How confident are you filling out medical forms by yourself?: 1 - Extremely Baseline Mental Status Prior to this Illness what was the patient's Baseline Mental Status?: Alert AND Oriented Prior to this illness, has anyone described the patient having any of the following behaviors?: Not Applicable Relationship of the informant to the patient:: Self Functional Status: Dependent Does Patient Currently Receive Any Community Services or Home Care?: None Equipment Prior to Admission: Walker Has the Patient Been in a Penitentiary Facility in the Past 30 days?: No SOCIAL: Living Arrangements: Home Lives With: (ex-, three grandchildren who she has permanent custody ages 15, 14, 10) Financial Resources: Retired Primary Contact: Extended Emergency Contact Information Primary Emergency Contact: ORIONJOHNCHLOE Mobile Relation: Grandchild Caregiver AssessmentCaregiver is ready, willing and able to meet the patient's needs as recommended by the inter-professional team:: Yes Does the patient have an acute stroke diagnosis, or has the patient had a stroke during this admission?: No Patient's transition needs and plan for meeting these needs: Patient's [id number]-[id number] and son live close by and come over to help often Patient's perception of need for this admission: necessary Medication Adherance I am convinced of the importance of my prescription medication: 0 - Agree Completely I worry that my prescription medication will do more harm than good to me : 0 - Disagree Completely I feel financially burdened by my wuc-oo-zxhlzi expenses for my prescription medication:: 0 - Disagree Completely Risk Score: 0 Patient is categorized as: Low risk < 2 Are you interested in bedside delivery of your medications? Yes Is Patient Psychosocially Complex?: Yes, refer to Social Work ASSESSMENT AND PLAN: Medical Needs: Medical Needs: Two or more chronic diseases Psychosocial Needs: Psychosocial Needs: None FREEDOM OF CHOICE EXPLAINED: [place] of Choice Given: No Reason Not Given: Unable to complete with this assessment - revisit POTENTIAL TRANSITION PLANS Home OT/PT Assessed, patient lives at home with ex- and three grandchildren whom she has permanent custody. Her grandson (10) is at home with her ex- and her granddaughters (14, 15) are spending the summer with their father. Patient states she has been bedridden for 1.5 months and hospitalized about 1 month ago in [place] but no resolution of her symptoms. She has a walker at home but has been falling so her family will carry her around to get her out of bed. Introduced role of CM and Transitional Care Management Team. Social Work to follow as well. Anticipate patient will need PT/OT assessment, and Home OT/PT. SIGNATURE: Ekta Landin RN PATIENT NAME: Aislinn Wheeler DATE: January 18, 2021 TIME: 10:51 AM PAGER/CONTACT #: [phone] [facility] CBCon 01-18-2021 Absolute nRBC <0.01 [facility] width (RBC) [Ratio] 13.0 % Normal 11.5-15.0 [facility] Hematocrit (Bld) [Volume fraction] 31.2 % Low 36.0-46.0 [facility] Hemoglobin (Bld) [Mass/Vol] 9.9 g/dL Low 11.5-15.5 [facility] MCH 24.4 pG Low 26.0-34.0 [facility] MCHC (RBC) [Mass/Vol] 31.7 g/dL Normal 30.5-36.0 [facility] MCV (RBC) [Entitic vol] 77.0 fL Low 80.0-100.0 [facility] Platelet mean volume (Bld) [Entitic vol] 10.8 fL Normal 9.0-12.7 [facility] l Platelets (Bld) [#/Vol] 310 10*3/uL Normal 150-400 [facility] RBC (Bld) [#/Vol] 4.05 10*6/uL Normal 3.90-5.20 [facility] WBC (Bld) [#/Vol] 17.03 10*3/uL High 3.70-11.00 [facility] CONSULTon 01-18-2021 CONSULT HNO ID: [id number] Author: Annie Trinidad DO Service: Hypertension AND Nephrology Author Type: Physician Type: Consults Filed: 01/18/2021 11:16 AM Note Text: CONSULT: NEPHROLOGY SERVICE SERVICE DATE: January 18, 2021 SERVICE TIME: 10:29 AM REASON FOR CONSULT: I am asked to see this patient in consultation for my opinion regarding ANATOLIY. My recommendations will be communicated by way of shared medical record. REQUESTING PHYSICIAN: Dr Hansen PRIMARY CARE PHYSICIAN: No Pcp CHIEF COMPLAINT: Generalized weakness and falls HPI: Ms. Wheeler is a 60 year old female with history of DM2, COPD, here with worsening generalized weakness and falls. She has lost weight over the last 6 months, felt increasingly weak. On admission here was found to have ANATOLIY, creatinine of 2.93mg/dL with hyponatremia and hyperkalemia. She had a CT scan non-contrast done in the ED which showed moderate bilateral hydroureteronephrosis with findings of mildly dilated bladder with lobulated bladder wall suggestive of bladder outlet obstruction. She also was noted to have a large complex cystic mass of the left kidney. She reports that she has had urinary incontinence over the last several times requiring her to wear depends. She has noted gross hematuria before in her depends but was not been seen previously for this. Noted a no-show appointment to urology at [facility]. She also reports that she has had poor oral intake and has had ongoing weight loss of around 20 pounds in the last month. She does endorse that she drinks a lot of fluids. There is no NSAID use at home. No labs for comparison in our system, in review of care everywhere, creatinine was 0.9mg/dL when last checked at OSH in 07/2020. Her creatinine levels were previously around 0.5-0.6mg/dL, in 08/12/2020, she was admitted with hyperglycemia, Glucose of 1065, AG was 12, creatinine then was 1.56mg/dL and creatinine trended down to 0.91mg/dL that admission. CT chest noted a left upper lobe noncalcified pulmonary nodule. She had a chaves catheter placed and urology has seen this morning. Plan to maintain indwelling chaves and trend creatinine levels. She will also need imaging of her kidneys and cystoscopy. We are called to see patient for ANATOLIY and hyponatremia. PAST MEDICAL HISTORY: PAST MEDICAL HISTORY Diagnosis Date - Asthma - Diabetes (HCC) PAST SURGICAL HISTORY: PAST SURGICAL HISTORY Procedure Laterality Date - ANKLE SURGERY HX Left - HYSTERECTOMY HX - NECK SURGERY HX - SHOULDER SURGERY HX Left FAMILY HISTORY: Maternal grandfather: ESRD from diabetes SOCIAL HISTORY: Social History Tobacco Use - Smoking status: Never Smoker - Smokeless tobacco: Never Used Vaping Use - Vaping Use: Never used Substance Use Topics - Alcohol use: Yes Comment: socially - Drug use: Never MEDICATIONS: No current facility-administered medications on file prior to encounter. Current Outpatient Medications on File Prior to Encounter Medication Sig - insulin aspart U-100 (NOVOLOG) 100 unit/mL Please use your sliding scale - insulin glargine (LANTUS) 100 unit/mL injection Inject 30 Units subcutaneously. - pregabalin (LYRICA) 150 mg capsule Take 150 mg by mouth. - HYDROcodone-Acetaminoph en (NORCO) 7.5-325 mg per tablet Take 1 tablet by mouth three times daily as needed. - albuterol (PROVENTIL) 2.5 mg /3 mL (0.083 %) nebulizer solution Inhale 2.5 mg as instructed. - budesonide-formoterol (SYMBICORT) 80-4.5 mcg/actuation inhaler Inhale 2 Puffs as instructed. - dilTIAZem (CARDIZEM) 90 mg tablet Take 180 mg by mouth. - DULoxetine (CYMBALTA) 60 mg capsule Take 60 mg by mouth. - metFORMIN (GLUCOPHAGE) 1,000 mg tablet Take 1,000 mg by mouth. Current Facility-Administered Medications Medication Dose Route Frequency - pregabalin 150 mg cap(s) (LYRICA) 150 mg ORAL DAILY - albuterol 2.5 mg /3 mL (0.083 %) 2.5 mg (PROVENTIL) 2.5 mg INHALATION q 4 H PRN - fluticasone-vilanterol 100-25 mcg/dose 1 Inhalation (BREO ELLIPTA) 1 Inhalation INHALATION DAILY - dextrose 40 % 15 g 15 g ORAL PRN Or - glucagon 1 mg injection 1 mg INTRAMUSCULAR PRN Or - dextrose 50% in water 25 mL syringe 12.5 g INTRAVENOUS PRN - cefTRIAXone 1 g in D5W 100 mL MB+ (ROCEPHIN) 1 g INTRAVENOUS q 24 H - insulin lispro injection (rapid acting) (HumaLOG) SUBCUTANEOUS w MEALS - insulin glargine 15 Units pen (long acting) (LANTUS SOLOSTAR, BASAGLAR KWIKPEN) 15 Units SUBCUTANEOUS AT BEDTIME - HYDROcodone 5 mg - acetaminophen 325 mg tablet (NORCO) 1 tablet ORAL q 6 H PRN ALLERGIES: ALLERGIES Allergen Reactions - Latex Rash Added based on information entered during case entry, please review and add reactions, type, and severity as needed REVIEW OF SYSTEMS: Constitutional: positive for weakness and weight loss Eyes: No complaints Ear, Nose, and Throat: No complaints Cardiovascular: No complaints Respiratory: No complaints Gastrointestinal: positive for n (more content not included)... Normal [facility] CONSULT HNO ID: [id number] Author: Taurus Ballard MD Service: Urology Author Type: Physician Type: Consults Filed: 01/18/2021 8:27 AM Note Text: [facility] UROLOGY CONSULT NOTE NAME: Aislinn Wheeler BED: [id number] SERVICE DATE: 01/18/2021 SERVICE TIME: 8:21 AM REASON FOR CONSULT: UTI and hydronephrosis REQUESTING PHYSICIAN: Dr. Porras PRIMARY CARE PHYSICIAN: No Pcp ASSESSMENT 60-year-old female with a several month history of urinary incontinence, progressive weakness and weight loss. Evaluation in the emergency department revealed bilateral hydronephrosis, distended bladder, ANATOLIY, cystic left renal mass, and urinary tract infection. Urinary catheter placed in the emergency department and over a liter of urine produced overnight. Improvement of renal function over the last 12 hours. PLAN - Maintain indwelling Chaves and trend creatinine over the next 1 to 2 days to ensure resolution of her renal insufficiency. - Once renal function has improved would consider MRI of the kidneys to evaluate the cystic renal mass on the left side while inpatient if possible. -Treat urinary tract infection based on culture results and sensitivities. -Once renal function has improved and imaging of the kidney obtained can discharge patient with indwelling Chaves catheter. -We will arrange outpatient urologic follow-up to evaluate the bladder with cystoscopy and urodynamics. We will also discuss management of this cystic renal mass at that time. HISTORY OF PRESENT ILLNESS Ms. Wheeler is a 60 year old female with PMHx type 2 diabetes, COPD who presents with decreased energy and weakness, weight loss over the last several months and urinary incontinence. She was evaluated in the emergency department and found to have a urinary tract infection and bilateral hydroureteronephrosis and a distended bladder. Urology was consulted for questions regarding management of hydronephrosis and urinary tract infection. Patient denies prior urologic history. Denies urinary tract infections in the past. She says she may have had gross hematuria once several months ago but not recently. She has never seen a urologist before. Never had bladder procedures or prolapse surgery. Currently does not have prolapse to her knowledge. PAST MEDICAL HISTORY: PAST MEDICAL HISTORY Diagnosis Date - Asthma - Diabetes (HCC) PAST SURGICAL HISTORY: PAST SURGICAL HISTORY Procedure Laterality Date - ANKLE SURGERY HX Left - HYSTERECTOMY HX - NECK SURGERY HX - SHOULDER SURGERY HX Left FAMILY HISTORY: No family history on file. SOCIAL HISTORY: Social History Tobacco Use - Smoking status: Never Smoker - Smokeless tobacco: Never Used Vaping Use - Vaping Use: Never used Substance Use Topics - Alcohol use: Yes Comment: socially - Drug use: Never MEDICATIONS: Prior to Admission Medications: insulin aspart U-100 (NOVOLOG) 100 unit/mL, Please use your sliding scale, Disp: , Rfl: insulin glargine (LANTUS) 100 unit/mL injection, Inject 30 Units subcutaneously., Disp: , Rfl: pregabalin (LYRICA) 150 mg capsule, Take 150 mg by mouth., Disp: , Rfl: HYDROcodone-Acetaminoph en (NORCO) 7.5-325 mg per tablet, Take 1 tablet by mouth three times daily as needed., Disp: , Rfl: albuterol (PROVENTIL) 2.5 mg /3 mL (0.083 %) nebulizer solution, Inhale 2.5 mg as instructed., Disp: , Rfl: budesonide-formoterol (SYMBICORT) 80-4.5 mcg/actuation inhaler, Inhale 2 Puffs as instructed., Disp: , Rfl: dilTIAZem (CARDIZEM) 90 mg tablet, Take 180 mg by mouth., Disp: , Rfl: DULoxetine (CYMBALTA) 60 mg capsule, Take 60 mg by mouth., Disp: , Rfl: metFORMIN (GLUCOPHAGE) 1,000 mg tablet, Take 1,000 mg by mouth., Disp: , Rfl: Current Facility-Administered Medications Medication Dose Route Frequency - pregabalin 150 mg cap(s) (LYRICA) 150 mg ORAL DAILY - albuterol 2.5 mg /3 mL (0.083 %) 2.5 mg (PROVENTIL) 2.5 mg INHALATION q 4 H PRN - fluticasone-vilanterol 100-25 mcg/dose 1 Inhalation (BREO ELLIPTA) 1 Inhalation INHALATION DAILY - dextrose 40 % 15 g 15 g ORAL PRN Or - glucagon 1 mg injection 1 mg INTRAMUSCULAR PRN Or - dextrose 50% in water 25 mL syringe 12.5 g INTRAVENOUS PRN - NaCl 0.9% iv infusion 75 mL/hr INTRAVENOUS CONTINUOUS - cefTRIAXone 1 g in D5W 100 mL MB+ (ROCEPHIN) 1 g INTRAVENOUS q 24 H - insulin lispro injection (rapid acting) (HumaLOG) SUBCUTANEOUS w MEALS - insulin glargine 15 Units pen (long acting) (LANTUS SOLOSTAR, BASAGLAR KWIKPEN) 15 Units SUBCUTANEOUS AT BEDTIME - HYDROcodone 5 mg - acetaminophen 325 mg tablet (NORCO) 1 tablet ORAL q 6 H PRN CURRENT ALLERGIES: Allergies As of Date: 01/17/2021 Allergen Noted Reaction LATEX 02/05/2020 Rash Fully Assessed 01/17/2021 COMPLETE REVIEW OF SYSTEMS: 12 point review of systems negative other than what was mentioned in the HPI OBJECTIVE PHYSICAL EXAM: Patient Vitals for the pa (more content not included)... Normal [facility] Creatinine,Urine,Ranon 01-18 Creatinine,Urine,Ran 33.5 mg/dL Normal 20-300 [facility] Comment on above: Performed By: #### U SAUNDRA, UOSM, UCRR ####[facility] [place], [place] [phone] Magnesiumon 01-18-2021 Magnesium [Mass/Vol] 1.9 mg/dL Normal 1.7-2.3 [facility] NURSING PROGon 01-18-2021 NURSING PROG HNO ID: [id number] Author: Barbara Spicer RN Service: ? Author Type: Registered Nurse Type: Nursing Progress Note Filed: 01/18/2021 10:28 AM Note Text: Nursing Progress Note Patient Name: Aislinn Wheeler Patient Location: / Daily Note:pt report given to pete RN. Pt VSS. Pt belongings packed. This note was completed by: Barbara Spicer Normal [facility] Osmolalityon 01-18-2021 Osmolality [Osmolality] 298 mosm/kg Normal 275-300 [facility] Comment on above: Performed By: #### O SM ####[facility] [place], [place] [phone] Osmolality, Urineon 01-19-20 21 Osmolality, Urine 273 mOsm/kg Normal 50-1200 [facility] Comment on above: Performed By: #### U SAUNDRA, UOSM, UCRR ####[facility] [place], [place] [phone] Sepsis Lactateon 01-18-2021 Sepsis Lactate 0.9 mmol/L Normal <2.1 [facility] Sodium,Urine,Randomon 2020 Sodium (U) [Moles/Vol] 32 mmol/L Normal 14-216 [facility] Comment on above: Performed By: #### U SAUNDRA, UOSM, UCRR ####[facility] [place], [place] [phone] THERAPY NTon 01-18-2021 THERAPY NT HNO ID: [id number] Author: Wendy Montes De Oca OT/Broderick Service: Occupational Therapy Author Type: Occupational Therapist Type: Therapy (PT/OT/Speech/Resp) Filed: 01/18/2021 1:10 PM Note Text: Occupational Therapy Evaluation SERVICE DATE: 01/18/2021 SERVICE TIME: 853 to 914 ROOM: [place] [address] Recommended Discharge Disposition: Home OT Recommended Discharge Disposition Comments: Pt is SBA in her room for ADLs and was able to transfer from bed to chair with WW. Pt reports she can complete ADLs at home by herself but needs to be carried to the bathroom/tub, etc. Pt reports she does not have insurance until February so rehab likely is possible. Home OT is recommended for safety evaluation, AE/DME needs, family training (ex- is ill and cannot assist, 10 year old grandson lives there, and 2 other granddaughter are away for summer), and to increase strength and IND in self-care tasks and functional mobility in the home. Anticipated Discharge Needs: Physical Assist at Home Physical Assist at Home for: Transfers;Cleaning;Laun dry;Meals;Safety;Self Care;Shopping;Transport ation Recommended Discharge Equipment: Extended tub bench;Wheeled Walker;Commode-Bedside OT 6 Clicks Score: 24 Precautions/Activity Restrictions: Fall Risk Current Hospital Course: sepsis, ANATOLIY, creatinine of 2.93mg/dL with hyponatremia and hyperkalemia. She had a CT scan non-contrast done in the ED which showed moderate bilateral hydroureteronephrosis with findings of mildly dilated bladder with lobulated bladder wall suggestive of bladder outlet obstruction. She also was noted to have a large complex cystic mass of the left kidney. Reason for Hospital Admission: weakness x6 months Relevant Past Medical History: DM, asthma Treatment Interventions: Education;Self Care / Home Management;Strengthenin g;Functional Mobility Training Home Environment Patient Lives With: Other: See Comment (lives with 10 year old grandson, ex-hus, ) Assistance Available: 24 Hour;Other: See Comment (grandson is done with school at home) Entry To Home: No Stairs Number Of Stairs To Bed/Bath: 0 Tub/Shower Type: tub shower Laundry: basement, [id number] Equipment Owned: Cane;Standard Walker CURRENT FUNCTIONAL STATUS: Most recent performance Current Activities of Daily Living Assist Level Additional Information Feeding Set Up Grooming Set Up Bathing Upper Body Set Up Bathing Lower Body Set Up Dressing Upper Body Set Up Dressing Lower Body Set Up Toileting Stand By Assistance Instrumental Activities of Daily Living Assist Level Additional Information Meal/Beverage Prep Maximal Assistance Cleaning Maximal Assistance Laundry Maximal Assistance Medication Management with Strategies Functional Mobility Assist Level Additional Information Rolling Supine to Sit Stand By Assistance Sit to Supine Scooting Sit to Stand Stand By Assistance Stand to Sit Bed to Chair Stand By Assistance Wheeled Walker Toilet/Commode Shower Functional Mobility Blank shankar indicate activity not attempted Learning/Educational Needs: Discharge Plan;Family Education/Training;Equi pment;Functional Activities/Mobility;Zoey n of Care;Safety;Self Care Goals for Plan of Care: Patient /Caregiver Goals: Go Home Goals: Patient will demonstrate progress with self-care, cognitive and/or coping needs identified to allow safe discharge to home with available support and/or physical assistance. Rehab Potential: Good Patient will be discontinued from Occupational Therapy when no further skilled needs are identified in this setting. PLAN: Treatment Frequency (times per week): 2 Current admission Plan of Care developed with: Patient TREATMENT INTERVENTIONS: Therapy Diagnosis: Reduced mobility-other;Decrease d activities of daily living (ADL);Muscle Weakness (generalized);General symptoms and signs-other Interventions Provided: Evaluation $ Evaluation-Moderate (01108) Billed Units: 1 unit Training and education provided in: Adaptive equipment / DME;Assistive device use;Bed mobility;Benefits of in-hospital mobility;Discharge planning;Functional mobility involving ADL's;IADL?s / home management;Role of Occupational Therapy;Standing balance to improve independence with ADLs/self-care;Transfer - Bed to chair;Transfer - Sit to stand Following therapeutic skilled used: Activity dosing;Cuing verbal;Movement facilitation;Management of critical lines, tubes and/or drains;Therapeutic use of self;Teach-back for education Total Treatment Time (minutes): 21 Please see discipline specific clinical documentation flowsheet for complete details for this therapy evaluation/treatment. SIGNATURE: Wendy Montes De Oca OT/Broderick PATIENT NAME: Aislinn Wheeler DATE: January 18, 2021 TIME: 1:06 PM [facility] Urine Cultureon 01-18-2021 Bacteria identified Cx Nom (U) Sp. Request/Comment: - Specimen received in preservative Culture Result - No growth (<1,000 CFU/ml) [facility] Comment on above: Performed By: #### U RCUL ####[facility] [place], [place] [phone] Blood Cultureon 01-17-2021 Bacteria identified Cx Nom (Bld) Culture Result - No growth [address] [facility] Comment on above: Performed By: #### B LCUL ####[facility] [place], [place] [phone] C-Reactive Proteinon 021 C-Reactive Protein 32.4 mg/dL High <0.9 [facility] Comment on above: Performed By: #### W SR ####[place] [id number] [place], [place] [phone] CBC and Differentialon 01-17 Abs Baso <0.03 Normal <0.11 [facility] Abs Eosin <0.03 Normal <0.46 [facility] Abs Borden 0.73 k/uL Normal <0.87 [facility] Abs Neut 14.70 k/uL High 1.45-7.50 [facility] Absolute nRBC <0.01 [facility] WBC (Bld) 0.1 % Normal [facility] DTYPE Auto Diff Normal [facility] Eosinophils/100 WBC (Bld) 0.0 % Normal [facility] Erythrocyte distribution width (RBC) [Ratio] 13.1 % Normal 11.5-15.0 [facility] Hematocrit (Bld) [Volume fraction] 35.1 % Low 36.0-46.0 [facility] Hemoglobin (Bld) [Mass/Vol] 11.3 g/dL Low 11.5-15.5 [facility] Lymphocytes (Bld) [#/Vol] 1.88 10*3/uL Normal 1.00-4.00 [facility] Lymphocytes/100 WBC (Bld) 10.8 % Normal [facility] MCH 24.2 pG Low 26.0-34.0 [facility] MCHC (RBC) [Mass/Vol] 32.2 g/dL Normal 30.5-36.0 [facility] MCV (RBC) [Entitic vol] 75.2 fL Low 80.0-100.0 [facility] Monocytes/100 WBC (Bld) 4.2 % Normal [facility] Neutrophils/100 WBC (Bld) 84.9 % Normal [facility] NRBCs 0.0 /100 WBC Normal 0 [facility] l Platelet mean volume (Bld) [Entitic vol] 11.4 fL Normal 9.0-12.7 [facility] Platelets (Bld) [#/Vol] 345 10*3/uL Normal 150-400 [facility] RBC (Bld) [#/Vol] 4.67 10*6/uL Normal 3.90-5.20 [facility] WBC (Bld) [#/Vol] 17.33 10*3/uL High 3.70-11.[address] [facility] CT ABD/PEL WO IVCONon 2020 CT ABD/PEL WO IVCON * * *Final Report* * * DATE OF EXAM: Jan 17 2021 8:05PM [facility] 0531 - CT ABD/PEL WO IVCON / PROCEDURE REASON: Mass or lump, abdomen pelvis * * * * Physician Interpretation * * * * CT OF CHEST, ABDOMEN AND PELVIS WITHOUT CONTRAST CLINICAL HISTORY: Aspiration (accession [id number]), Mass or lump, abdomen pelvis (accession [id number]) Concern for possible source of infection vs mass CONCERN FOR INFECTION VS MASS TECHNIQUE: Routine axial images through the entire chest, abdomen and pelvis without intravenous contrast. Contrast: IV contrast: None. Oral contrast: None. CT Radiation dose: Integrated Dose-length product (DLP): 399 mGy*cm. CT Dose Reduction Employed: Automated exposure control. COMPARISON: 01/17/2021 CT of thoracic and lumbar spine RESULT: Limitations: None. CHEST Lines, tubes, and devices: None. Lower neck: Negative. Mediastinum: Thoracic aorta and main pulmonary artery show normal caliber. No mediastinal masses, adenopathy or significant pericardial fluid. Lungs: 0.7 oblong nodular focus in the lingular segment (4:130). No other pulmonary opacities bilaterally. No pleural effusion or pneumothorax. Pleural spaces: No pleural effusion, thickening or mass. Airways: Large caliber central airway branches are patent. Bones/soft tissues: Thoracic bony structures are intact. ABDOMEN/PELVIS: Peritoneum/mesentery: There is no free intraperitoneal air or significant free fluid. Liver: Normal. Biliary: Gallbladder is absent. Spleen: Normal. Pancreas: Normal. Adrenals: Normal. Kidneys/urinary: Bilateral moderate hydroureteronephrosis. The dilated ureters extend down to the urinary bladder. No obstructing stone or mass at the ureterovesical junctions. Large 8.4 x 7.8 x 6.8 cm complex cystic mass arising from the lateral inferior border of left kidney. This mass contains multiple internal septations. No associated internal nodule but evaluation limited on this noncontrast exam. Urinary bladder: No bladder stone. Urinary bladder is mildly dilated and there is mild diffuse bladder wall thickening. Bladder chanel are mildly lobulated on coronal images. GI tract: No dilated bowel or bowel wall thickening. Negative appendix. Lymph nodes: Negative. Vasculature: Unremarkable. Pelvis: No pelvic mass or fluid collection. Bones/soft tissue: Indeterminate age fracture of the L1 superior endplate. See CT lumbar spine report for details. Pelvic bones are intact. Beauty Culturist Apprentice (topogram) images: Unremarkable. IMPRESSION: Left upper lobe lingular segment 0.7 cm noncalcified pulmonary nodule. No evidence of pneumonia or other acute findings in the chest. Moderate bilateral hydroureteronephrosis. The stagnant fluid in the obstructed urinary tracts may be the source of infection. Bilateral ureters are obstructed at the ureterovesical junction level. No obstructing stone or mass detected. The obstruction may be secondary to the downstream bladder outlet obstruction. Mildly dilated bladder with bladder wall thickening and mildly lobulated bladder chanel suggesting bladder outlet obstruction. Large complex cystic mass arising from the left kidney. Recommend MRI of kidneys for closer evaluation. Age indeterminant L1 compression fracture. ACTIONABLE RESULT: FOLLOW-UP Acuity: Actionable Findings: Thoracic-LUNG NODULES Routing Code: RI_1 Recommendation: CT Chest WO IVCON Time Frame: 6-12 months COMMUNICATION: Results will be communicated with the ordering provider via [employer] staff message or phone message by [employer] within 2 business days of report finalization. ACTIONABLE RESULT: FOLLOW-UP Acuity: Actionable Findings: Kidneys/Ureters/Bladder /Adrenal Routing Code: GU_1 Recommendation: MRI KIDNEY WO/W IVCON Time Frame: non-urgent, but prompt follow-up. COMMUNICATION: Results will be communicated with the ordering provider via [employer] staff message or phone message by [facility] within 2 business days of report finalization. Algorithms for management of incidental imaging findings can be found on the [facility] Intranet Sharepoint site at: [email or web address] Managing%20Incidental%2 0Findi ngs%20at%20Imaging/Form s/AllItems.aspx Human Resource Internship: GUILLE Transcribe Date/Time: Jan 17 2021 8:20P Dictated by : PADILLA JIM MD This examination was interpreted and the report reviewed and electronically signed by: PADILLA JIM MD on Jan 17 2021 8:43PM EST [id number] ACTIONABLE Invalid Interpretation Code [facility] CT BRAIN WO IVCONon 01-18-20 CT BRAIN WO IVCON * * *Final Report* * * DATE OF EXAM: Jan 17 2021 4:26PM [facility] 0504 - CT BRAIN WO IVCON / PROCEDURE REASON: Head trauma, headache * * * * Physician Interpretation * * * * EXAMINATION: CT BRAIN WO IVCON CLINICAL HISTORY: Head trauma, headache TECHNIQUE: Serial axial images without IV contrast were obtained from the vertex to the foramen magnum. MQ: [id number]_3 CT Radiation dose: Integrated Dose-Length Product (DLP) for this visit = 943 mGy*cm CT Dose Reduction Employed: Automated exposure control(AEC) and iterative recon COMPARISON: None. RESULT: Post-operative change: None. Acute change: No evidence of an acute infarct or other acute parenchymal process. Hemorrhage: No evidence of acute intracranial hemorrhage. ECASS hemorrhagic transformation score: Not Applicable Mass Lesion / Mass Effect: There is no evidence of an intracranial mass or extraaxial fluid collection. No significant mass effect. Chronic change: None apparent. Parenchyma: There is no significant volume loss. The brain parenchyma is otherwise within normal limits for age. Ventricles: The ventricles are within normal limits of size and configuration for age. Paranasal sinuses and skull base: The visualized paranasal sinuses are grossly clear. The skull base and imaged soft tissues are unremarkable. Beauty Culturist Apprentice (topogram) images: No additional findings. IMPRESSION: No acute intracranial hemorrhage or mass effect is seen Human Resource Internship: GUILLE Transcribe Date/Time: Jan 17 2021 4:47P Dictated by : JOHN THAKKAR MD This examination was interpreted and the report reviewed and electronically signed by: JOHN THAKKAR MD on Jan 17 2021 4:48PM EST [id number] Normal [facility] CT CERVICAL SPINE WO IVCONon 01-17-2021 CT CERVICAL SPINE WO IVCON * * *Final Report* * * DATE OF EXAM: Jan 17 2021 4:26PM [facility] 0505 - CT CERVICAL SPINE WO IVCON / PROCEDURE REASON: C-spine trauma, NEXUS/CCR positive * * * * Physician Interpretation * * * * EXAMINATION: CT CERVICAL SPINE WO IVCON CLINICAL HISTORY: Cervical spine trauma TECHNIQUE: CT of the cervical spine without IV contrast. Spiral, high resolution axial images were obtained from the skull base to the cervicothoracic junction with sagittal and coronal planar reconstructions. MQ: [id number]_5 CT Radiation dose: Integrated CT Dose-Length Product (DLP) for this visit = 943 mGy*cm CT Dose Reduction Employed: Automated exposure control(AEC) and iterative recon COMPARISON: None. RESULT: There is fusion hardware at the C4-5 level and at the C5-6 level. Counting reference: Craniocervical junction. Anatomic Variants: None. Beauty Culturist Apprentice (topogram) images: No additional findings. Alignment: Straightening of the cervical spine is noted Craniocervical junction: Craniocervical junction is normal. Osseous structures/fracture: No evidence of a lytic or blastic process in the visualized spine. No evidence of acute or chronic fracture. Osteopenia is seen Cervical soft tissues: The paraspinal soft tissues are within normal limits. Degenerative changes: Mild degenerative narrowing at C3-4. Mild degenerative change at the C6-7 and C7-T1 levels. IMPRESSION: Hardware in the cervical spine with no acute fractures seen Anatomic Variant: None. Assume 7 cervical vertebrae with counting from the craniocervical junction. Human Resource Internship: PSCB Transcribe Date/Time: Jan 17 2021 4:49P Dictated by : JOHN THAKKAR MD This examination was interpreted and the report reviewed and electronically signed by: JOHN THAKKAR MD on Jan 17 2021 4:53PM EST [id number] Normal [facility] CT CHEST WO IVCONon 01-18-20 CT CHEST WO IVCON * * *Final Report* * * DATE OF EXAM: Jan 17 2021 8:05PM [facility] 0541 - CT CHEST WO IVCON / PROCEDURE REASON: Aspiration * * * * Physician Interpretation * * * * CT OF CHEST, ABDOMEN AND PELVIS WITHOUT CONTRAST CLINICAL HISTORY: Aspiration (accession [id number]), Mass or lump, abdomen pelvis (accession [id number]) Concern for possible source of infection vs mass CONCERN FOR INFECTION VS MASS TECHNIQUE: Routine axial images through the entire chest, abdomen and pelvis without intravenous contrast. Contrast: IV contrast: None. Oral contrast: None. CT Radiation dose: Integrated Dose-length product (DLP): 399 mGy*cm. CT Dose Reduction Employed: Automated exposure control. COMPARISON: 01/17/2021 CT of thoracic and lumbar spine RESULT: Limitations: None. CHEST Lines, tubes, and devices: None. Lower neck: Negative. Mediastinum: Thoracic aorta and main pulmonary artery show normal caliber. No mediastinal masses, adenopathy or significant pericardial fluid. Lungs: 0.7 oblong nodular focus in the lingular segment (4:130). No other pulmonary opacities bilaterally. No pleural effusion or pneumothorax. Pleural spaces: No pleural effusion, thickening or mass. Airways: Large caliber central airway branches are patent. Bones/soft tissues: Thoracic bony structures are intact. ABDOMEN/PELVIS: Peritoneum/mesentery: There is no free intraperitoneal air or significant free fluid. Liver: Normal. Biliary: Gallbladder is absent. Spleen: Normal. Pancreas: Normal. Adrenals: Normal. Kidneys/urinary: Bilateral moderate hydroureteronephrosis. The dilated ureters extend down to the urinary bladder. No obstructing stone or mass at the ureterovesical junctions. Large 8.4 x 7.8 x 6.8 cm complex cystic mass arising from the lateral inferior border of left kidney. This mass contains multiple internal septations. No associated internal nodule but evaluation limited on this noncontrast exam. Urinary bladder: No bladder stone. Urinary bladder is mildly dilated and there is mild diffuse bladder wall thickening. Bladder chanel are mildly lobulated on coronal images. GI tract: No dilated bowel or bowel wall thickening. Negative appendix. Lymph nodes: Negative. Vasculature: Unremarkable. Pelvis: No pelvic mass or fluid collection. Bones/soft tissue: Indeterminate age fracture of the L1 superior endplate. See CT lumbar spine report for details. Pelvic bones are intact. Beauty Culturist Apprentice (topogram) images: Unremarkable. IMPRESSION: Left upper lobe lingular segment 0.7 cm noncalcified pulmonary nodule. No evidence of pneumonia or other acute findings in the chest. Moderate bilateral hydroureteronephrosis. The stagnant fluid in the obstructed urinary tracts may be the source of infection. Bilateral ureters are obstructed at the ureterovesical junction level. No obstructing stone or mass detected. The obstruction may be secondary to the downstream bladder outlet obstruction. Mildly dilated bladder with bladder wall thickening and mildly lobulated bladder chanel suggesting bladder outlet obstruction. Large complex cystic mass arising from the left kidney. Recommend MRI of kidneys for closer evaluation. Age indeterminant L1 compression fracture. ACTIONABLE RESULT: FOLLOW-UP Acuity: Actionable Findings: Thoracic-LUNG NODULES Routing Code: RI_1 Recommendation: CT Chest WO IVCON Time Frame: 6-12 months COMMUNICATION: Results will be communicated with the ordering provider via [employer] staff message or phone message by [facility] within 2 business days of report finalization. ACTIONABLE RESULT: FOLLOW-UP Acuity: Actionable Findings: Kidneys/Ureters/Bladder /Adrenal Routing Code: GU_1 Recommendation: MRI KIDNEY WO/W IVCON Time Frame: non-urgent, but prompt follow-up. COMMUNICATION: Results will be communicated with the ordering provider via [employer] staff message or phone message by [facility] Support Services within 2 business days of report finalization. Algorithms for management of incidental imaging findings can be found on the [facility] Intranet Sharepoint site at: [email or web address] Managing%20Incidental%2 0Findi ngs%20at%20Imaging/Form s/AllItems.aspx Human Resource Internship: GUILLE Transcribe Date/Time: Jan 17 2021 8:20P Dictated by : PADILLA JIM MD This examination was interpreted and the report reviewed and electronically signed by: PADILLA JIM MD on Jan 17 2021 8:43PM EST [id number] ACTIONABLE Invalid Interpretation Code [facility] CT LUMBAR SPINE WO IVCONon 0 01-17-2021 CT LUMBAR SPINE WO IVCON * * *Final Report* * * * * * SEE BOTTOM OF REPORT FOR ADDENDED TEXT * * * DATE OF EXAM: Jan 17 2021 5:34PM [facility] 0508 - CT LUMBAR SPINE WO IVCON / PROCEDURE REASON: L/S-spine fx, pathological * * * * Physician Interpretation * * * * * * * * * * * * ORIGINAL REPORT * * * * * * * * EXAMINATION: CT LUMBAR SPINE WO IVCON CLINICAL HISTORY: Fall, fracture. Weakness TECHNIQUE: Spiral, high resolution axial images were obtained from the thoracolumbar junction to the sacrum with sagittal and coronal planar reconstructions. MQ: [id number]_3 CT Radiation dose: Integrated Dose-Length Product (DLP) for this visit = 404.43 mGy*cm. CT Dose Reduction Employed: Automated exposure control(AEC) and iterative recon COMPARISON: None. RESULT: Counting reference: Lumbosacral junction. For the purposes of this report, L4-5 is considered the level of the iliac crest and assume there are 5 lumbar-type vertebrae. Anatomic variant: None. Beauty Culturist Apprentice (topogram) images: No additional findings. Alignment: Alignment is anatomic. Bone marrow /fracture: No evidence of a lytic or blastic process in the visualized spine. There is a superior endplate fracture, mild in degree at the L1 level. There is vacuum phenomenon at the T12-L1 level. Paraspinal soft tissues: The paraspinal soft tissues planes are maintained. Lower thoracic spine: The visualized lower thoracic bony canal and foramina are patent. T12-L1: Canal and foramina are patent. L1-L2: Canal and foramina are patent. L2-L3: Canal and foramina are patent L3-L4: Canal and foramina are patent L4-L5: Canal and foramina are patent L5-S1: Canal and foramina are patent Sacrum and iliac wings: The visualized sacrum and iliac wings are within normal limits. IMPRESSION: Mild superior compression fracture at L1 noted of indeterminate etiology. No definite osseous lesion. Anatomic Thoracic/Lumbar Variant: None. L4-5 is considered the level of the iliac crest and assume there are 5 lumbar-type vertebrae. * * * * * * * * ADDENDUM #1 * * * * * * * * There is a 8 cm cystic left renal mass lesion seen in bilateral hydronephrosis with thickening of the urinary bladder present. COMMUNICATION: Communicated with Dr Bridges on 01/17/2021 6:08 PM via verbal communication. Human Resource Internship: GUILLE Transcribe Date/Time: Jan 17 2021 6:05P Dictated by : JOHN THAKKAR MD This examination was interpreted and the report reviewed and electronically signed by: JOHN THAKKAR MD on Jan 17 2021 6:01PM EST This document has been addended by: JOHN THAKKAR MD on Jan 17 2021 6:08PM EST [id number] [facility] CT THORACIC SPINE WO IVCONon 01-17-2021 CT THORACIC SPINE WO IVCON * * *Final Report* * * DATE OF EXAM: Jan 17 2021 5:34PM [facility] 0514 - CT THORACIC SPINE WO IVCON / PROCEDURE REASON: T-spine fx, pathological * * * * Physician Interpretation * * * * EXAMINATION: CT THORACIC SPINE WO IVCON CLINICAL HISTORY: Frequent falls and weakness. Back pain TECHNIQUE: Spiral, high resolution unenhanced axial images were obtained from the cervicothoracic junction to the thoracolumbar junction with sagittal and coronal planar reconstructions. MQ: CTTSWO_3 CT Radiation dose: Integrated Dose-Length Product (DLP) for this visit = 404 mGy*cm. CT Dose Reduction Employed: Automated exposure control(AEC) and iterative recon COMPARISON: None. RESULT: Counting reference: Lumbosacral junction. For the purposes of this report, anatomic variants: Beauty Culturist Apprentice (topogram) images: No additional findings. Alignment: Alignment is anatomic. Bone marrow / fracture: No evidence of a lytic or blastic process in the visualized spine. No evidence of acute or chronic fracture. Thoracic paraspinal soft tissues: The paraspinal soft tissues planes are maintained. Canal and foramina: The bony thoracic canal and foramina are patent. Mild degenerative changes are seen of the spine. Incidental finding of bilateral hydronephrosis and L1 compression fracture IMPRESSION: No acute thoracic spine fractures seen. Mild degenerative changes of the thoracic spine Anatomic Thoracic/Lumbar Variant: None. L4-5 is considered the level of the iliac crest and assume there are 5 lumbar-type vertebrae. Human Resource Internship: GUILLE Transcribe Date/Time: Jan 17 2021 6:03P Dictated by : JOHN THAKKAR MD This examination was interpreted and the report reviewed and electronically signed by: JOHN THAKKAR MD on Jan 17 2021 6:13PM EST [id number] Normal [facility] Comp Metabolic Panelon 01-17 Albumin [Mass/Vol] 3.0 g/dL Low 3.9-4.9 [facility] ospital ALP [Catalytic activity/Vol] 162 U/L High 34-123 [facility] ALT [Catalytic activity/Vol] 7 U/L Normal 7-38 [facility] Anion gap [Moles/Vol] 17 mmol/L Normal 9-18 [facility] AST [Catalytic activity/Vol] 15 U/L Normal 13-35 [facility] Bilirubin [Mass/Vol] 0.4 mg/dL Normal 0.2-1.3 [facility] Calcium [Mass/Vol] 9.6 mg/dL Normal 8.5-10.2 [facility] Chloride [Moles/Vol] 83 mmol/L Low 97-105 [facility] CO2 [Moles/Vol] 20 mmol/L Low 22-30 [facility] Creatinine [Mass/Vol] 2.93 mg/dL High 0.58-0.96 [facility] eGFR- Amer. 20 Normal [facility] ospital eGFR-All Other Races [address] [facility] Comment on above: Result Comment: eGFR (Estimated GFR) Units of measure: mL/min/1.73 meters squared eGFR is derived from the reexpressed MDRD Study equation using the following parameters: serum creatinine, age, gender and race. The creatinine assay has been calibrated to be traceable to IDMS. An eGFR <60 mL/min/1.73m2 for >3 months is consistent with chronic kidney disease. Refer to KDOQI guidelines for clinical interpretation. In patients with unstable renal function, e.g. those with acute kidney injury, the eGFR may not accurately reflect actual GFR. Glucose [Mass/Vol] 216 mg/dL High 74-99 [facility] Comment on above: Result Comment: The [place] Diabetes Association (ADA) provides guidance for cutoff values for fasting glucose and random glucose. The ADA defines fasting as no caloric intake for at least 8 hours. Fasting plasma glucose results between 100 to 125 mg/dL indicate increased risk for diabetes (prediabetes). Fasting plasma glucose results greater than or equal to 126 mg/dL meet the criteria for diagnosis of diabetes. In the absence of unequivocal hyperglycemia, results should be confirmed by repeat testing. In a patient with classic symptoms of hyperglycemia or hyperglycemic crisis, random plasma glucose results greater than or equal to 200 mg/dL meet the criteria for diagnosis of diabetes. Reference: Standards of Medical Care in Diabetes 2016, [place] [employer]. Diabetes Care. 2016.39(Suppl 1). Potassium [Moles/Vol] 5.5 mmol/L High 3.7-5.1 [facility] Protein [Mass/Vol] 9.5 g/dL High 6.3-8.0 [facility] Sodium [Moles/Vol] 120 mmol/L Low 136-144 [facility] Comment on above: Result Comment: Resu lt checked and verified Urea nitrogen [Mass/Vol] 104 mg/dL High 7-21 [facility] ED NOTEon 01-17-2021 ED NOTE HNO ID: [id number] Author: Prerna Luke RN Service: ? Author Type: Registered Nurse Type: ED Notes Filed: 01/17/2021 9:32 PM Note Text: Report called to 4E RN. Patient stable for transport at this time. [facility] ED NOTE HNO ID: [id number] Author: Prerna Luke RN Service: ? Author Type: Registered Nurse Type: ED Notes Filed: 01/17/2021 9:20 PM Note Text: 16Fr chaves inserted with 500 cc urine immediately drained. Patient tolerated well. [facility] ED NOTE HNO ID: [id number] Author: Prerna Luke RN Service: ? Author Type: Registered Nurse Type: ED Notes Filed: 01/17/2021 7:22 PM Note Text: BC obtained by lab. ABX infusing at this time. [facility] ED NOTE HNO ID: [id number] Author: Prerna Luke RN Service: ? Author Type: Registered Nurse Type: ED Notes Filed: 01/17/2021 7:06 PM Note Text: This RN and 2 medics unable to straight stick patient for blood or draw from existing IVs. Lab will draw one set of BC; GIANNI Tucker notified that only one set will be obtained. [facility] ED NOTE HNO ID: [id number] Author: Prerna Luke RN Service: ? Author Type: Registered Nurse Type: ED Notes Filed: 01/17/2021 4:25 PM Note Text: XR at bedside [facility] ED NOTE HNO ID: [id number] Author: Prerna Luek RN Service: ? Author Type: Registered Nurse Type: ED Notes Filed: 01/17/2021 4:03 PM Note Text: covid swab obtained and walked to lab. [facility] ED NOTE HNO ID: [id number] Author: Bharat Patterson RN Service: ? Author Type: Registered Nurse Type: ED Notes Filed: 01/17/2021 3:31 PM Note Text: Patient presents to ED for c/c weakness, dizziness, and urinary incontinence Daughter reports ongoing x 6 months and states last month she has lost a lot of weight Reports she can barely walk d/t weakness and sleeps excessively Reports dizziness when getting up or moving Patient states she has no urge to void and incontinence just comes unpredictably Has not had insurance and has been off medications for an extended period of time Reports oral intake has been poor [facility] ED PROV NOTEon 01-17-2021 ED PROV NOTE HNO ID: [id number] Author: Garrett Simon PA-C Service: Emergency Medicine Author Type: Physician Bat Carrier Type: ED Provider Notes Filed: 01/17/2021 9:27 PM Note Text: Attestation signed by Cory Crawley III, MD at 01/18/2021 12:06 PM Attending Note I have personally performed a face to face assessment of the patient and have reviewed the PA/ISHAN note. My miller findings include: This is a 60-year-old female presents for complaints of generalized weakness for 6 months duration. She appears to be cachectic, malnourished and has significant findings of malignancy. Laboratory work-up here shows a leukocytosis but unfortunately the rest of the diagnostic imaging is pending at this point in time. She had numerous falls and has traumatic imaging pending including a CT thoracic and lumbar spine to evaluate for compression fractures or malignancy. She has a urinary incontinence but is had this thoroughly evaluated has been going on for greater than 3 to 4 months. At this point in time awaiting laboratory results with reevaluation by ED attending. Signature: Cory Crawley III Date: 01/18/2021 Time: 12:05 PM ED Provider Note Patient Name: Aislinn Wheeler SERVICE DATE: 01/17/21 History Patient presents with: Weakness Dizziness Urinary Problem: incotinence A 60 yo female with a PMH of diabetes and asthma presents to the ED with generalized weakness x 6 months. Daughter reports that for the last 6 months the patient has lost a lot of weight, has been increasingly weak and has been sleeping a lot. She is also been feeling dizzy. She has had numerous falls in the past 6 months. She is following most every day the past month. She seems a bit unlike herself that she is so fatigued that these times. She has been having this urinary incontinence for approximately 6 months now. It is not gotten any better. Daughter is taken the patient to numerous different hospitals admits that suspect it is secondary to her diabetes. P is so weak that she cannot take care of herself currently. She has lost about 20 pounds in the past month or so. She is not confused. The patient denies any somatic complaints. Denies any chest pain, shortness of breath, abdominal pain, diarrhea, fever, or chills. PAST MEDICAL HISTORY Diagnosis Date - Asthma - Diabetes (HCC) PAST SURGICAL HISTORY Procedure Laterality Date - ANKLE SURGERY HX Left - HYSTERECTOMY HX - NECK SURGERY HX - SHOULDER SURGERY HX Left No family history on file. Social History Tobacco Use - Smoking status: Never Smoker - Smokeless tobacco: Never Used Vaping Use - Vaping Use: Never used Substance and Sexual Activity - Alcohol use: Yes Comment: socially - Drug use: Never - Sexual activity: Not on file ALLERGIES Allergen Reactions - Latex Rash Added based on information entered during case entry, please review and add reactions, type, and severity as needed Review of Systems Constitutional: Positive for fatigue. Negative for chills and fever. Respiratory: Negative for cough and shortness of breath. Cardiovascular: Negative for chest pain. Gastrointestinal: Negative for abdominal pain, diarrhea and vomiting. Genitourinary: Negative for dysuria and vaginal discharge. Urinary incontinence Musculoskeletal: Negative for myalgias. Neurological: Positive for weakness (generalized). Psychiatric/Behavioral: Negative for confusion. All other systems reviewed and are negative. Physical Exam BP 105/77 Pulse 91 Temp (Src) 97.5 (Oral) Resp 16 Ht 5' 0 (1.52m) Wt 94 lb 9.2 oz (42.9kg) SpO2 99% BMI 18.47 kg/(m2). O2 Therapy: Room Air Physical Exam Vitals and nursing note reviewed. Constitutional: General: She is not in acute distress. Appearance: Normal appearance. She is well-developed. She is not ill-appearing or diaphoretic. Comments: Nontoxic-appearing female resting comfortably and in no severe distress. She is mildly cachectic appearing however. HENT: Head: Normocephalic and atraumatic. Eyes: Pupils: Pupils are equal, round, and reactive to light. Cardiovascular: Rate and Rhythm: Normal rate and regular rhythm. Pulses: Normal pulses. Heart sounds: Normal heart sounds. Pulmonary: Effort: Pulmonary effort is normal. No respiratory distress. Breath sounds: Normal breath sounds. No stridor. No wheezing, rhonchi or rales. Abdominal: General: Bowel sounds are normal. There is no distension. Palpations: Abdomen is soft. There is no mass. Tenderness: There is no abdominal tenderness. There is no guarding or rebound. Hernia: No hernia is present. Musculoskeletal: Cervical back: Normal range of motion. Right lower leg: No edema. Left lower leg: No edema. Comments: No significant midlin (more content not included)... Normal [facility] HISTORY PHYSICALon HISTORY PHYSICAL HNO ID: [id number] Author: Trevor Porras MD Service: Hospital Medicine Author Type: Physician Type: HANDP Filed: 01/17/2021 10:12 PM Note Text: DEPARTMENT OF HOSPITAL MEDICINE HISTORY AND PHYSICAL EXAM SERVICE DATE: 01/17/2021 Code Status: Not on file SERVICE TIME: 10:00 PM Primary Care Physician: No Pcp NIGHT AND WEEKEND COVERAGE: DELYM COVERAGE: Days: [phone], please contact via [email or web address] Nights: [phone], please page [facility] Hospitalist Night coverage pager [phone] Subjective CHIEF COMPLAINT: Generalized weakness, falls HPI: Aislinn Wheeler is a 60 y/o F with a PMH sig for DMII, COPD who presents with worsening generalized weakness and falls, found to have sepsis and ANATOLIY secondary to UTI likely precipitated by acute bilateral obstructive uropathy as seen on imaging. Daughter reports that for the last 6 months the patient has lost a lot of weight, has been increasingly weak and has been sleeping a lot. She has also been feeling dizzy. She has had numerous falls in the past 6 months. She is following most every day the past month. She seems a bit unlike herself that she is so fatigued that these times. She has been having this urinary incontinence for approximately 6 months now. It is not gotten any better. Daughter is taken the patient to numerous different hospitals admits that suspect it is secondary to her diabetes. Pt is so weak that she cannot take care of herself currently. She has lost about 20 pounds in the past month or so. She is not confused. The patient denies any somatic complaints. Denies any chest pain, shortness of breath, abdominal pain, diarrhea, fever, or chills. In the ED: WBC = 17.33. HR = 106, RR = 18. Cr = 2.93. Na = 120. K = 5.5. ESR = 124. CRP = 32.4. CT showing Moderate bilateral hydroureteronephrosis. ?The stagnant fluid in the obstructed urinary tracts may be the source of infection. ?Bilateral ureters are obstructed at the ureterovesical junction level. ?No obstructing stone or mass detected. The obstruction may be secondary to the downstream bladder outlet obstruction. Mildly dilated bladder with bladder wall thickening and mildly lobulated bladder chanel suggesting bladder outlet obstruction. ED spoke with urologist who suggesting inserting chaves catheter and admitting. Pt was given IV Rocephin, IVF and admitted. PAST MEDICAL HISTORY Diagnosis Date - Asthma - Diabetes (HCC) PAST SURGICAL HISTORY Procedure Laterality Date - ANKLE SURGERY HX Left - HYSTERECTOMY HX - NECK SURGERY HX - SHOULDER SURGERY HX Left No family history on file. Social History Tobacco Use - Smoking status: Never Smoker - Smokeless tobacco: Never Used Vaping Use - Vaping Use: Never used Substance Use Topics - Alcohol use: Yes Comment: socially - Drug use: Never PRIOR TO ADMISSION MEDICATIONS: insulin aspart U-100 (NOVOLOG) 100 unit/mL, Please use your sliding scale, Disp: , Rfl: insulin glargine (LANTUS) 100 unit/mL injection, Inject 30 Units subcutaneously., Disp: , Rfl: pregabalin (LYRICA) 150 mg capsule, Take 150 mg by mouth., Disp: , Rfl: HYDROcodone-Acetaminoph en (NORCO) 7.5-325 mg per tablet, Take 1 tablet by mouth three times daily as needed., Disp: , Rfl: albuterol (PROVENTIL) 2.5 mg /3 mL (0.083 %) nebulizer solution, Inhale 2.5 mg as instructed., Disp: , Rfl: budesonide-formoterol (SYMBICORT) 80-4.5 mcg/actuation inhaler, Inhale 2 Puffs as instructed., Disp: , Rfl: dilTIAZem (CARDIZEM) 90 mg tablet, Take 180 mg by mouth., Disp: , Rfl: DULoxetine (CYMBALTA) 60 mg capsule, Take 60 mg by mouth., Disp: , Rfl: metFORMIN (GLUCOPHAGE) 1,000 mg tablet, Take 1,000 mg by mouth., Disp: , Rfl: ALLERGIES Allergen Reactions - Latex Rash Added based on information entered during case entry, please review and add reactions, type, and severity as needed REVIEW OF SYSTEM: As per HPI, all other ROS reviewed and otherwise negative. Objective PHYSICAL EXAM: BP 130/80 Pulse 106 Temp (Src) 98.2 (Oral) Resp 18 Ht 5' 0 (1.52m) Wt 98 lb 8.7 oz (44.7kg) SpO2 98% BMI 19.25 kg/(m2). O2 Therapy: Room Air Physical Exam Performed: GENERAL: Alert, no distress, cooperative HEAD/SINUSES: No significant findings EYES: PERRLA, EOMI LUNGS: Lungs clear to auscultation, Good diaphragmatic excursion CARDIAC: Normal S1 and S2; no rubs, murmurs, or gallops ABDOMEN: Abdomen soft, non-tender, BS normal, No masses or organomegaly EXTREMITIES: Extremities normal, no deformities, edema, clubbing or skin discoloration. Good capillary refill., No ulcers Lines, Drains, and Airways Line Peripheral 01/17/21 1650 Short Right Antecubital 22 Gauge <1 day Peripheral 01/17/21 1700 Short Left Arm 22 Gauge <1 day Reviewed lines and needs to be continued: REASONS: Intravenous fluids, Intravenous antibiotics, Telemetry and Electrolyte replacement DATA: Diagnostic tests reviewed for today's visit: Most recent labs Most recen (more content not included)... Normal [facility] Intermed Rapid COVIDon 01-17 SARS-CoV-2 (COVID-19) RNA ADRIEL+probe Ql (Unsp spec) UPPER RESPIRATORY TRACT SWAB Normal [facility] Comment on above: Performed By: #### I TCOVD ####[id number] [place], [place] [phone] SARS-CoV-2 (COVID-19) RNA ADRIEL+probe Ql (Unsp spec) Negative for COVID19 (SARS CoV2) by RT-PCR or equivalent method. Normal Negative for COVID19 (SARS CoV2) by RT-PCR or equivalent method. [facility] Comment on above: Result Comment: This test was developed and its performance characteristics determined by [facility] [place]. This test has been authorized by FDA under an Emergency Use Authorization (EUA). This test has been validated in accordance with the FDA's Guidance Document Policy for Diagnostics Testing in Laboratories Certified to Perform High Complexity Testing under CLIA prior to Emergency use Authorization for Coronavirus Disease 2019 during the Public Health Emergency issued on October 19, 2019. Test performed by [facility], [facility] [place], [address], [place] [address]. Performed By: #### I TCOVD ####[id number] [place], [place] [phone] Magnesiumon 01-17-2021 Magnesium [Mass/Vol] 2.0 mg/dL Normal 1.7-2.3 [facility] NT Pro BNPon 01-17-2021 PRO B Natr Peptide 394 pg/mL High <125 [facility] Sed Rate Westergrenon 2020 Sed Rate [facility] 124 mm/hr High 0-20 [facility] Comment on above: Performed By: #### W ####[facility] [address] [place], [place] [phone] TSHon 01-17-2021 TSH Qn 0.615 m[IU]/L Normal 0.270-4.200 [facility] tae Troponin Ton 01-17-2021 Troponin T.cardiac [Mass/Vol] 0.023 ug/L Normal 0.000-0.029 [facility] Urinalysis with Microscopico n 01-17-2021 Bacteria Present Critically abnormal 0 [facility] Bilirubin, Urine Negative Normal Negative [facility] Cast SEE COMMENT Normal 0 [facility] Comment on above: Result Comment: 0 Clarity (U) Turbid Critically abnormal Clear [facility] Color (U) Yellow Normal Yellow [facility] Glucose Ql (U) Negative Normal Negative [facility] Hemoglobin/Blood,Ur 2+ Critically abnormal Negative [facility] Ketones Ql (U) Negative Normal Negative [facility] Leukest 3+ Critically abnormal Negative [facility] Nitrite Ql (U) Positive Critically abnormal Negative [facility] pH (U) 8.5 [pH] High 5.0-8.0 [facility] Protein, Urine 2+ Critically abnormal Negative [facility] RBC 3-5 Critically abnormal 0-3 [facility] Specific [place], Ur 1.013 Normal 1.005-1.030 [facility] Urobilinogen Qn (U) 0.2 {Madeleine'U}/dL Normal 0.2-1.0 [facility] WBC (U) [#/Vol] /uL Critically abnormal 0-5 [facility] Urine Cultureon 01-17-2021 Bacteria identified Cx Nom (U) Sp. Request/Comment: - Specimen received in preservative Culture Result - >=100,000 CFU/ml Proteus mirabilis --> ABNORMAL ALERT ORGANISM: Proteus mirabilis METHOD: Minimum inhibitory concentration(Vitek) Antibiotic Interp LOCO Status Ampicillin SUSCEPTIBLE <=2 F Gentamicin SUSCEPTIBLE <=1 F Trimeth sulfameth SUSCEPTIBLE <=20 F Cefazolin SUSCEPTIBLE <=4 F CLSI breakpoints for therapy of uncomplicated UTI's due to E.coli, K.pneumoniae, and P.mirabilis were applied and may be used to predict the activity of oral agents(cefaclor, cefdinir, cefpodoxime, cefprozil, cefuroxime, cephalexin, loracarbef). Ciprofloxacin SUSCEPTIBLE <=0.25 F Nitrofurantoin RESISTANT 128 F Cefepime SUSCEPTIBLE <=1 F Piperacillin/Tazobac SUSCEPTIBLE <=4 F Ampicillin Sulbact SUSCEPTIBLE <=2 F Ceftriaxone SUSCEPTIBLE <=1 F Meropenem SUSCEPTIBLE <=0.25 F Ertapenem SUSCEPTIBLE <=0.[address] [facility] Comment on above: Performed By: #### U RCUL ####[facility] [place], [place] [phone] XR CHEST 1V FRONTAL PORTon 0 01-17-2021 XR CHEST 1V FRONTAL PORT * * *Final Report* * * DATE OF EXAM: Jan 17 2021 4:21PM VHX [id number] - XR CHEST 1V FRONTAL PORT / PROCEDURE REASON: Fatigue and malaise * * * * Physician Interpretation * * * * EXAMINATION: CHEST RADIOGRAPH (PORTABLE SINGLE VIEW AP) Exam Date/Time: 01/17/2021 4:21 PM CLINICAL HISTORY: Fatigue and malaise MQ: XCPR_5 Comparison: None. RESULT: Lines, tubes, and devices: None. Lungs and pleura: The lungs appear unremarkable with no evidence of infiltrate. The pleural margins appear normal. Cardiomediastinal silhouette: Unremarkable cardiomediastinal silhouette. Other: The visualized bony thorax appears unremarkable. IMPRESSION: Unremarkable exam with no evidence of acute disease. Human Resource Internship: PSCB Transcribe Date/Time: Jan 17 2021 4:40P Dictated by : FLASH WOODS MD This examination was interpreted and the report reviewed and electronically signed by: FLASH WOODS MD on Jan 17 2021 4:41PM EST [id number] Normal [facility] Vital Signs Date Time Vital Sign Value Performing Clinician Facility 06-08-2023 13:00-0400 Body height 154.94 cm Sara Augustine Other [facility] Other 06-08-2023 13:00-0400 Body mass index (BMI) [Ratio] 25.37 kg/m2 Tondra Mapus Other [facility] Other 06-08-2023 13:00-0400 Body weight 60.92 kg Tondra Mapus Other [facility] Other 06-08-2023 13:00-0400 Diastolic blood pressure 66 mm[Hg] Tondra Mapus Other [facility] Other 06-08-2023 13:00-0400 Respiratory rate 18 /min Tondra Mapus Other [facility] Other 06-08-2023 13:00-0400 SaO2% (BldA) [Mass fraction] 100 % Tondra Mapus Other [facility] Other 06-08-2023 13:00-0400 Systolic blood pressure 107 mm[Hg] Tondra Mapus Other [facility] Other 05-18-2023 11:00-0400 Body height 154.94 cm Tondra Mapus Other [facility] Other 05-18-2023 11:00-0400 Body mass index (BMI) [Ratio] 24.69 kg/m2 Tondra Mapus Other [facility] Other 05-18-2023 11:00-0400 Body weight 59.29 kg Tondra Mapus Other [facility] Other 05-18-2023 11:00-0400 Diastolic blood pressure 96 mm[Hg] Tondra Mapus Other [facility] Other 05-18-2023 11:00-0400 Respiratory rate 18 /min Sara Augustine Other [facility] Other 05-18-2023 11:00-0400 SaO2% (BldA) [Mass fraction] 97 % Tondrbethany Dumontus Other [facility] Other 05-18-2023 11:00-0400 Systolic blood pressure 161 mm[Hg] Sara Dumontus Other [facility] Other 02-22-2023 08:34-0400 Blood Pressure Location Lisa Lue [facility] 02-22-2023 08:34-0400 Diastolic blood pressure 66 mm[Hg] Lisa Lue [facility] 02-22-2023 08:34-0400 Heart rate 76 /min Lisa Lue [facility] 02-22-2023 08:34-0400 Systolic blood pressure 106 mm[Hg] Lisa Lue [facility] 12-27-2022 16:00-0400 Body height 154.94 cm [facility] Other [facility] 12-27-2022 16:00-0400 Body mass index (BMI) [Ratio] 26.11 kg/m2 [facility] [employer] [employer] Other [facility] Other 12-27-2022 16:00-0400 Body temperature 96.5 [degF] [employer] [employer] Other [facility] Other 12-27-2022 16:00-0400 Body weight 62.69 kg Eli Sprague Other [facility] Other 12-27-2022 16:00-0400 Diastolic blood pressure 98 mm[Hg] Eli Sprague Other [facility] Other 12-27-2022 16:00-0400 Respiratory rate 18 /min Eli Sprague Other [facility] Other 12-27-2022 16:00-0400 SaO2% (BldA) [Mass fraction] 98 % Eli Sprague Other [facility] Other 12-27-2022 16:00-0400 Systolic blood pressure 151 mm[Hg] Eli Sprague Other [facility] Other 09-21-2022 08:42-0500 Blood Pressure Location Lisa Lue [facility] 09-21-2022 08:42-0500 Diastolic blood pressure 67 mm[Hg] Lisa Lue [facility] 09-21-2022 08:42-0500 Heart rate 74 /min Lisa Lue [facility] 09-21-2022 08:42-0500 Systolic blood pressure 103 mm[Hg] Lisa Lue [facility] Encounters Encounter Date Encounter Type Care Provider Facility Start: 09-12-2023 ambulatory HEIDY Salinas ty:[facility] [place] Start: 07-18-2023 End: 07-19-2023 ambulatory HEIDY ARNOLD Facility:[facility] Start: 07-05-2023 End: 07-05-2023 Orders Only Taurus Ballard MD Work Phone: Urology Comment on above: Kidney cyst, acquire d (Primary Dx) Start: 07-05-2023 Telephone encounter Eli Sprague [facility] Start: 06-28-2023 End: 06-29-2023 ambulatory Lisa Porras Facility:[facility] Start: 06-28-2023 End: 06-28-2023 Patient encounter procedure Lisa Porras [facility] Start: 06-26-2023 End: 06-26-2023 ambulatory Tondra Mapus Other [facility] Other Start: 06-26-2023 Telephone encounter Tondra Mapus [facility] Start: 06-23-2023 Telephone encounter Heidy salas RN Urology Comment on above: Surgical Followup Start: 06-22-2023 End: 06-23-2023 ambulatory TAURUS BALLARD Facility:[facility] Start: 06-19-2023 ambulatory Taurus newton MD Work Phone: Urology Comment on above: Aislinn Wheeler upcomin g procedure Start: 06-15-2023 Telephone encounter Vonnie Wilder RN Ur ology Comment on above: Pre-Op Teaching Start: 06-12-2023 End: 06-12-2023 ambulatory Tondra Mapus Other [facility] Other Start: 06-12-2023 Telephone encounter Tondra Mapus [facility] Start: 06-08-2023 End: 06-08-2023 Lab Drop off HEIDY ARNOLD [facility] Start: 06-08-2023 End: 06-08-2023 Patient encounter procedure LATOSHA XAVIERHOLZ [facility] Start: 06-08-2023 (PUMP/CGM) Pump / Sensor Sara Augustine [facility] Start: 06-08-2023 End: 06-09-2023 [facility] Other Start: 06-06-2023 Encounter for other preprocedural examination TAURUS BALLARD [facility] Start: 06-06-2023 End: 06-07-2023 ambulatory TAURUS BALLARD Facility:[facility] Start: 05-22-2023 End: 05-23-2023 ambulatory Lisa Porras Facility:[facility] Start: 05-22-2023 End: 05-22-2023 Patient encounter procedure Lisa Porras [facility] Start: 05-18-2023 End: 05-18-2023 ambulatory Sara Augustine Other [facility] Other Start: 05-18-2023 FQ visit new patient Sara Gasca [facility] Start: 05-18-2023 Telephone encounter Taurus rees MD Work Phone: Urology Comment on above: Follow Up Start: 05-17-2023 End: 05-17-2023 ambulatory TAURUS BALLARD Facility:[facility] Start: 05-11-2023 End: 2023 ambulatory HEIDY ARNOLD Facility:[facility] Start: 05-11-2023 End: 05-11-2023 Lab Drop off HEIDY ARNOLD [facility] Start: 05-03-2023 End: 05-04-2023 ambulatory Lisa Porras Facility:[facility] Start: 04-18-2023 End: 04-19-2023 ambulatory HEIDY ARNOLD Facility:[facility] Start: 04-18-2023 End: 04-19-2023 ambulatory Lisa M. Vern Facility:[facility] Start: 04-18-2023 End: 04-18-2023 Lab Drop off HEIDY ARNOLD [facility] Start: 04-18-2023 End: 04-18-2023 Patient encounter procedure Lisa Porras [facility] Start: 04-04-2023 End: 04-04-2023 ambulatory Brigette Wesley Other [facility] Other Start: 04-04-2023 Telephone encounter Brigette Wesley [facility] Start: 02-22-2023 End: 02-23-2023 ambulatory Lisa Porras Facility:[facility] [place] Start: 02-22-2023 End: 02-22-2023 Patient encounter procedure Lisa Porras [facility] Start: 01-09-2023 End: 01-09-2023 ambulatory Azyanet Bakdis Other [facility] Other Start: 01-09-2023 Telephone encounter Azyanet Bakhous [facility] Start: 01-03-2023 End: 01-04-[address] DEPUTY LATOSHA AICHHOLZ Facility:[facility] Start: 12-28-2022 End: 12-29-[address] DEPUTY LATOSHA AICHHOLZ Facility:[facility] Start: 12-27-2022 End: 12-27-2022 ambulatory Aziz Bakhous Other [facility] Other Start: 12-27-2022 Office outpatient ne w 30 minutes Aziz Bakhous [facility] Start: 12-15-2022 End: 12-16-[address] DEPUTY LATOSHA AICHHOLZ Facility:[facility] Start: 12-14-2022 End: 12-15-2022 ambulatory RAMON HUNTLEY Facility:[facility] Start: 10-27-2022 End: 10-28-[address] DEPUTY LATOSHA AICHHOLZ Facility:[facility] Start: 10-26-2022 ambulatory [facility] Start: 10-24-2022 End: 10-25-[address] DEPUTY LATOSHA AICHHOLZ Facility:[facility] Start: 10-12-2022 End: 10-13-[address] DEPUTY LATOSHA AICHHOLZ Facility:[facility] Start: 10-05-2022 End: 10-06-[address] DEPUTY LATOSHA AICHHOLZ Facility:[facility] Start: 09-29-2022 End: 09-30-[address] DEPUTY LATOSHA AICHHOLZ Facility:[facility] Start: 09-21-2022 End: 09-22-2022 ambulatory RAMON HUNTLEY Facility:[facility] Start: 09-21-2022 End: 09-22-2022 ambulatory Lisa Porras Facility:[facility] Start: 09-21-2022 End: 09-21-2022 Patient encounter procedure Lisa Porras [facility] Start: 09-15-2022 End: 09-16-[address] DEPUTY LATOSHA AICHHOLZ Facility:[facility] Start: 09-13-2022 End: 09-14-2022 ambulatory LATOSHA J DUCHOLZ Facility:[facility] [place] Start: 09-13-2022 End: 09-13-2022 Patient encounter procedure HEIDY ARNOLD [facility] Start: 09-08-2022 End: 09-09-[address] DEPUTY LATOSHA AICHHOLZ Facility:[facility] Start: 09-02-2022 End: 09-03-2022 ambulatory RAMON HUNTLEY Facility:[facility] Start: 08-26-2022 End: 08-27-2022 ambulatory RAMON Tillman [facility] Facility:[facility] Start: 08-24-2022 ambulatory Lisa Porras Facility:[facility] Start: 08-09-2022 End: 08-10-2022 ambulatory RAMON Tillman [facility] Facility:[facility] Start: 08-05-2022 End: 08-06-2022 ambulatory RAMON Tillman [facility] Facility:[facility] Start: 08-04-2022 End: 08-05-2022 ambulatory RAMON Tillman [facility] Facility:[facility] Start: 08-03-2022 End: 08-04-[address] DEPUTY LATOSHA AICHHOLZ Facility:[facility] Start: 08-02-2022 End: 08-03-[address] DEPUTY LATOSHA AICHHOLZ Facility:[facility] Start: 08-01-2022 End: 08-02-[address] DEPUTY LATOSHA AICHHOLZ Facility:[facility] Start: 07-19-2022 End: 07-20-[address] DEPUTY LATOSHA AICHHOLZ Facility:[facility] Start: 07-08-2022 End: 07-09-[address] DEPUTY LATOSHA AICHHOLZ Facility:[facility] Start: 07-06-2022 End: 07-07-[address] DEPUTY LATOSHA AICHHOLZ Facility:[facility] Start: 07-05-2022 End: 07-06-2022 ambulatory RAMON Primo [facility] Facility:[facility] Start: 06-28-2022 End: 06-29-2022 ambulatory RAMON Tillman [facility] Facility:[facility] Start: 06-24-2022 End: 06-25-2022 ambulatory RAMON Tillman [facility] Facility:[facility] Start: 06-11-2022 End: 06-16-2022 Evaluation and management of inpatient DR NENO VIEIRA . Facility:[facility] Start: 06-02-2022 End: 06-02-[address] NELL PALMA Facility:[facility] Start: 06-02-2022 End: 06-03-2022 ambulatory RAMON Tillman [facility] Facility:[facility] Start: 2022 End: 2022 ambulatory RAQUEL SABA . Facility:[facility] Start: 01-27-2021 End: 01-27-2021 Telephone encounter Barb Silva MD Work Phone: Nephrology Comment on above: Appointment Procedures Date Procedure Procedure Detail Performing Clinician Start: 06-06-2023 Antibody screen TAURUS BALLARD Comment on above: Order Comment: Speci men Type: BLOOD SPECIMEN Ordering Facility: [facility] Address: [address] [place] [address] Performed By: #### T [id number] #### CC [facility] B[facility]OD [facility] FIDEL [id number] [facility] [address] [id number] [address] [place] Start: 05-22-2023 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 Ricardo Rocha Start: 06-13-2022 Detachment at Left F oot, Partial 1st Ray, Open Approach KIARA OLMSTEAD Start: 06-13-2022 Microscopic examinat ion of blood, culture KIARA OLMSTEAD Comment on above: Performed By: #### B LDCX1 ####[facility] [id number] [place] [address]Dr. Ricardo Rocha Start: 06-11-2022 Detachment at Left 1 st Toe, Complete, Open Approach KIARA OLMSTEAD Ankle region structu re (body structure) HEIDY ARNOLD Arthroscopy of knee HEIDY ARNOLD Cataract (disorder) HEIDY ARNOLD Gallbladder structur e (body structure) HEIDY ARNOLD Hysterectomy HEIDY ARNOLD Neck structure (body structure) HEIDY ARNOLD Shoulder region stru cture (body structure) HEIDY ARNOLD Upper limb structure (body structure) HEIDY ARNOLD Plan of Treatment Date Care Activity Detail Author Start: 06-23-2024 [facility] Start: 06-23-2024 Serum Creatinine Serum Creatinine Cl [facility] Start: 06-06-2024 Hemoglobin/Hematocrit Hemoglobin/Hem [facility] Start: 06-06-2024 Serum Creatinine Serum Creatinine [facility] Start: 01-22-2024 DIABETES SCREEN DIABETES SCREEN [facility] Start: 10-05-2023 End: 01-04-2024 Basic metabolic 2000 panel - Serum or Plasma BASIC METABOLIC PNL Lab Routine Kidney cyst, acquired Expected: 10/05/2023 (Approximate), Expires: 01/04/2024 [facility] Work Phone: Comment on above: Expected: 10/05/2023 (Approximate), Expires: 01/04/2024 Start: 10-05-2023 End: 08-03-2024 US KIDNEY/BLADDER US KIDNEY/BLADDER Radiology Routine Kidney cyst, acquired Expected: 10/05/2023 (Approximate), Expires: 08/03/2024 [facility] Work Phone: Comment on above: Expected: 10/05/2023 (Approximate), Expires: 08/03/2024 Start: 09-06-2023 Hemoglobin A1c/Hemoglobin.total in Blood HbA1C [facility] Start: 2023 Advance Directive Discussion Advance Directive Discussion [facility] Start: 2023 Bone Density Screening Bone Density Screening [facility] Start: 04-21-2023 Covid-19 Vaccine ( season) Covid-19 Vaccine () [facility] Start: 04-21-2023 Influenza vaccination Influenza Vacc ine (#1) [facility] Start: 08-21-2022 Depression Assessment Depression Ass essment [facility] Start: 04-21-2021 Influenza vaccination INFLUENZ A (Season Ended) [facility] Start: 2018 Hepatitis B Vaccine (1 of 3 - Risk 3-dose series) Hepatitis B Vaccine (1 of 3 - Risk 3-dose series) [facility] Start: 2018 RSV Vaccine (1 - 1-d ose 60+ series) RSV Vaccine (1 - 1-dose 60+ series) [facility] Start: 2008 Screening for malign ant neoplasm of colon [facility] Start: 2008 SHINGRIX VACCINE (1 of 2) SHINGRIX VACCINE (1 of 2) [facility] Start: 2003 Cologuard (FIT-DNA) Cologuard (FIT-D NA) [facility] Start: 2003 Colonoscopy Colonoscopy [facility] Start: 2003 Colorectal Cancer Screening Colorectal Cancer Screening [facility] Start: [address] [facility]ography [facility] Start: 2003 Fecal Occult Blood Fecal Occult Bloo d [facility] Start: 2003 LIPID SCREEN LIPID SCREEN [facility] Start: 2003 Sigmoidoscopy Sigmoidoscopy [facility] Start: 1998 Mammography [facility] Start: 1988 HPV TESTING HPV TESTING [facility] Start: 1979 PAP TESTING PAP TESTING [facility] Start: 1977 Urine microalbumin profile [facility] Start: 1976 Annual PCP Team Information Coder hola Disease Visit Annual PCP Team Chronic Disease Visit [facility] Start: 1976 BP Controlled (<130/80) BP Controlle d (<130/80) [facility] Start: 1976 Hepatitis B surface antibody level LDL Cholesterol [facility] Start: 1976 HEPATITIS C SCREENING HEPATITIS C SC REENING [facility] Start: 1976 HIV SCREENING HIV SCREENING [facility] Start: 1976 Spirometry Spirometry [facility] Start: 1970 Adult depression screening assessment DEPRESSION SCREENING [facility] Start: 1970 COVID-19 VACCINE (1) COVID-19 VACCIN E (1) [facility] Start: 1968 3 comp foot exam completed Diabetic Foot Exam [facility] Start: 1968 Hepatitis B screening Urine Albumin:Creatinine Ratio [facility] Start: 1968 Hepatitis C antibody , confirmatory test Dilated Retinal Exam [facility] Start: 1964 Pneumococcal Vaccine : 65+ (1 - PCV) Pneumococcal Vaccine: 65+ (1 - PCV) [facility] Immunizations Immunization Date Immunization Notes Care Provider Lukas pacheco 04-02-2021 SARS-CoV-2 (COVID-19 ) mRNA-1273 vaccine HEIDY ARNOLD [facility] 12-07-2020 SARS-CoV-2 (COVID-19 ) dVOF-3432 vaccine HEIDY ARNOLD [facility] 06-03-2016 influenza virus vaccine, unspecified formulation HEIDY ARNOLD [facility] Payers Date Payer Category Payer Self-pay 2022 Medicare [id number] 2022 Medicare UHC AARP MEDICAR E [facility] MEDIC[facility] PPO [id number] 2022-Present [phone] [address] [address] [place] [address] PPO [id number] 2006 Medicare MEDICARE MEDICAR E A [id number] 2006-Present [place] Medicare [id number] 1959 Medicare [id number] 1959 Medicare [id number] 1959 Unknown [id number] 1959 Unknown [id number] 1958 Unknown [id number] 2.16.840.1.334986.3.579.2.593 1958 Unknown [id number] 2.16.840.1.767801.3.579.2.593 1958 Unknown [id number] 2.16.840.1.220256.3.579.2.593 1958 Unknown [id number] 2.16.840.1.232134.3.579.2.593 1958 Unknown [id number] 2.16.840.1.330306.3.579.2.593 1958 Unknown [id number] 2.16.840.1.624711.3.579.2.593 1958 Unknown [id number] 2.16.840.1.264199.3.579.2.593 1958 Unknown [id number] 2.16.840.1.417697.3.579.2.593 1958 Unknown [id number] 2.16.840.1.978219.3.579.2.593 1958 Unknown [id number] 2.16.840.1.159934.3.579.2.593 1958 Unknown [id number] 2.16.840.1.963983.3.579.2.593 1958 Unknown [id number] 2.16.840.1.450088.3.579.2.593 1958 Unknown [id number] 2.16.840.1.512873.3.579.2.593 1958 Unknown [id number] 2.16.840.1.273933.3.579.2.593 1958 Unknown [id number] 2.16.840.1.913993.3.579.2.593 1958 Unknown [id number] 2.16.840.1.207007.3.579.2.593 1958 Unknown [id number] 2.16.840.1.643690.3.579.2.593 1958 Unknown [id number] 2.16.840.1.890362.3.579.2.593 1958 Unknown [id number] 2.16.840.1.127682.3.579.2.593 1958 Unknown [id number] 2.16.840.1.613254.3.579.2.593 1958 Unknown [id number] 2.16.840.1.707585.3.579.2.593 1958 Unknown [id number] 2.16.840.1.014452.3.579.2.593 1958 Unknown [id number] 2.16.840.1.422497.3.579.2.593 1958 Unknown [id number] 2.16.840.1.090999.3.579.2.593 1958 Unknown [id number] 2.16.840.1.561897.3.579.2.593 1958 Unknown [id number] 2.16.840.1.578893.3.579.2.593 1958 Unknown [id number] 2.16.840.1.761342.3.579.2.593 1958 Unknown [id number] 2.16.840.1.018917.3.579.2.593 1958 Unknown [id number] 2.16.840.1.540296.3.579.2.593 1958 Unknown [id number] 2.16.840.1.081656.3.579.2.593 1958 Unknown [id number] 2.16.840.1.840289.3.579.2.593 1958 Unknown [id number] 2.16.840.1.447080.3.579.2.727 1958 Unknown [id number] 2.16.840.1.742016.3.579.2.727 1958 Unknown [id number] 2.16.840.1.704960.3.579.2.727 1958 Unknown [id number] 2.16.840.1.364315.3.579.2.727 1958 Unknown [id number] 2.16.840.1.299394.3.579.2.72 1958 Unknown [id number] 2.16.840.1.916738.3.579.2. 1958 Unknown [id number] 2.16.840.1.995491.3.579.2. 1958 Unknown [id number] 2.16.840.1.863054.3.579.2. 1958 Unknown [id number] 2.16.840.1.341170.3.579.2. 1958 Unknown [id number] 2.16.840.1.982918.3.579.2. 1958 Unknown [id number] 2.16.840.1.337342.3.579.2. 1958 Unknown [id number] 2.16.840.1.819313.3.579.2. 1958 Unknown [id number] 2.16.840.1.040565.3.579.2. 1958 Unknown [id number] 2.16.840.1.347413.3.579.2.7 1958 Unknown [id number] 2.16.840.1.480259.3.579.2. Unknown [id number] 2.16.840.1.363191.3.579.2.531 Social History Date Type Detail Facility Start: 01-17-2021 End: 05-17-2023 Tobacco smoking status NHIS Never smoker [facility] Start: 01-17-2021 End: 05-17-2023 Tobacco use and exposure Never used [facility] Start: 01-17-2021 End: 06-06-2023 Alcohol intake Current drinker of alcohol (finding) [facility] Start: 01-17-2021 History SDOH Alcohol Frequency 1 [facility] Start: 01-17-2021 Alcohol Comment socially [facility] Start: 1960 Sex Assigned At Not on file [facility] Exposure to SARS-CoV -2 (event) Not sure [facility] Tobacco smoking status Never [facility] Start: 05-17-2023 End: 06-06-2023 Sex Assigned At Female [facility] Start: 05-17-2023 End: 06-06-2023 History of Social function [facility] Start: 06-06-2023 Alcohol Comment rarely--holida y or special occ [facility] Functional Status Date Assessment Result Facility 05-22-2023 Functional Status N/A [facility] 05-11-2023 Functional Status [facility] 02-22-2023 Functional Status N/A [facility] 09-21-2022 Functional Status N/A [facility] 09-13-2022 Functional Status N/A [facility] Clinical Notes 01-17-2021 to 07-05-2023 Note Date & Type Note Facility 07-05-2023 Evaluation note Encounter Date Diagnosis Assessment Notes Jun, Vitamin B12 deficiency (ICD-10 - E53.8) [facility] Other 11-03-2023 NoteHNO ID: [id number] Author: Rashad Kaye Service: ? Author Type: ? Type: Plan of Care Filed: 06/26/2023 9:53 AM Note Text: PHARMACY BEDSIDE DELIVERY SERVICE Patient Name: Aislinn Wheeler The marked outpatient medications were Filled at: [place] and delivered to the patient's bedside to [facility] Medication List START taking these medications acetaminophen 325 mg tablet Commonly known as: TylenoL Take 2 tablets by mouth every 6 hours as needed for pain. docusate sodium 100 mg capsule Commonly known as: COLACE Take 1 capsule by mouth two times a day. CONTINUE taking these medications albuterol HFA 90 mcg/actuation inhaler Commonly known as: PROVENTIL HFA, VENTOLIN HFA FeroSuL 325 mg (65 mg iron) tablet Generic drug: ferrous sulfate insulin glargine 100 unit/mL injection Commonly known as: LANTUS Inject 25 Units subcutaneously daily at bedtime. NOVOLOG FLEXPEN U-100 INSULIN SUBCUTANEOUS pregabalin 150 mg capsule Commonly known as: LYRICA VITAMIN B-12 1,000 mcg Tab Generic drug: cyanocobalamin You might also be taking other medications not listed above. If you have questions about any of your other medications, talk to the person who prescribed them or your Primary Care Provider. Rashad Kaye PAGER: [phone] June 26, 2023 9:52 [facility]11-03-2023 NoteHNO ID: [id number] Author: Taurus Ballard MD Service: Urology Author Type: Physician Type: Progress Notes Filed: 06/23/2023 1:37 PM Note Text: [facility] UROLOGY PROGRESS NOTE Name: Aislinn Wheeler Bed: [id number] Date: June 23, 2023 After Hours [facility] Urology Service Pager: [phone] ASSESSMENT AND PLAN Aislinn Wheeler is a 63 year old female with PMHx of left renal cyst c/f neoplasm now POD#1 s/p left cyst decortication Interval/daily plan: GIS today Chaves out today JUAN drain out prior to discharge ##Activity - OOB to chair and Ambulate with assistance. Stressed importance of getting out of bed #DVT prophylaxis - SCDs, #ID/Antibiotics - Perioperative antibiotics - ancef #Secondary Dx/Complications- DM2 POA - SSI #2 Chronic Pain POA - on multimodal regimen, home norco already in place Anemia chronic POA - monitoring CBC CKD3 POA - monitoring renal function Asthma POA - rescue inhaler ordered prn #Discharge teaching - routine #Disposition - dc home today Discussed with Dr. Ballard . Jeet De La Fuente MD Urology Resident [facility] [place] Pager [phone] SUBJECTIVE -c/o pain, had a BM, no nausea, tolerated clears, no f/c, labs and vitals stable, discussed pain plan OBJECTIVE: Vital Signs Patient Vitals for the past 24 hrs: BP Temp Temp src Pulse Resp SpO2 Height Weight 06/23/23 0410 116/59 36.6 ?C (97.9 ?F) Oral 77 20 96 % -- -- 06/23/23 0025 -- -- -- -- 16 -- -- -- 06/22/23 2315 150/67 36.6 ?C (97.9 ?F) Oral 74 17 99 % -- -- 06/22/23 1945 160/76 -- -- 80 -- 99 % -- -- 06/22/23 1943 174/74 36.5 ?C (97.7 ?F) Oral 80 18 99 % -- -- 06/22/23 1659 166/78 -- -- 80 -- 98 % -- -- 06/22/23 1659 -- -- -- -- -- -- 152.4 cm (5') 59 kg (130 lb) 06/22/23 1630 138/75 36.1 ?C (97 ?F) Temporal 73 8 98 % -- -- 06/22/23 1615 123/69 -- -- 72 6 98 % -- -- 06/22/23 1600 148/73 -- -- 74 8 98 % -- -- 06/22/23 1545 144/72 -- -- 72 7 98 % -- -- 06/22/23 1530 123/71 -- -- 74 8 90 % -- -- 06/22/23 1515 -- -- -- 73 9 91 % -- -- 06/22/23 1500 136/67 -- -- 71 8 100 % -- -- 06/22/23 1445 100/82 -- -- 72 9 100 % -- -- 06/22/23 1430 137/67 -- -- 74 17 99 % -- -- 06/22/23 1415 137/70 -- -- 76 13 96 % -- -- 06/22/23 1414 -- -- -- -- -- 89 % -- -- 06/22/23 1400 (!) 165/129 36.3 ?C (97.3 ?F) Temporal 78 15 95 % -- -- 06/22/23 1002 152/60 36 ?C (96.8 ?F) -- 70 16 98 % -- -- Body mass index is 25.39 kg/m?. Input and Output Date 06/22/23 07 - 06/23/23 0659 06/23/23 0700 - 06/24/23 0659 Shift 4828-6430 5622-8941 5572-0596 24 Hour Total 1099-0800 6806-6546 5288-0099 24 Hour Total INTAKE IV 1600 1600 Volume (mL) (lactated ringers iv infusion) 1000 1000 Volume (mL) (lactated ringers iv infusion) 600 600 Shift Total 1600 1600 OUTPUT Urine 300 318 257 6509 OR Urine Output 300 300 Output ( Indwelling Urinary Catheter 06/22/23 1130 Chaves 16 Fr) 330 029 0940 Tubes 20 40 60 Drain/Tube Output (Drain/Tube 06/22/23 1333 Lex Vega Right Lower Quadrant Abdomen Drain #1) 20 40 60 # of BMs Number of BMs 1 x 1 x Blood 50 50 Estimated Blood loss 50 50 Shift Total [phone] Weight (kg) 59 59 59 59 59 59 59 Physical Exam General: Well-appearing, no acute distress CV: Warm and well perfused Lungs: Unlabored breathing on RA Abdomen: soft, elif -tender, non-distended, JUAN ss Wound: Incision clean, dry, and intact : Chaves catheter present and Urine light pink Extremities: no peripheral edema bilaterally, no palpable cords Recent Labs 06/23/23 0657 06/22/23 1407 WBC 7.47 6.04 HB 9.0* 8.9* HCT 28.5* 27.8* PLT 251 230 NA -- 134* K -- 5.3* CHLOR -- 108* CO2 -- 19* BUN -- 26* CREAT -- 1.57* GLUC -- 275* Imaging NA The above noted history, physical, assessment and plan were reviewed with the provider and critical portions of the HANDP were confirmed. I agree with the plan above and provided direct supervision of the above provider during this patient's care. Patient doing well postop. Will discharge. We will call with pathology. Taurus Ballard MDFitchburg General [id number] Miscellaneous Notes* Telephone Encounter - Heidy Garcia RN - 06/23/2023 9:03 AM EDT Patient had left robotic partial nephrectomy by Dr. Ballard on 06/22/2023 Will call for surgical follow up once discharged documented in this encounterProtestant [facility]11-02-2023 NoteHNO ID: [id number] Author: Linda Nciholson RN Service: Nursing Author Type: Registered Nurse Type: Nursing Progress Note Filed: 06/22/2023 2:15 PM Note Text: surgical dressing: surgical glue, [facility]11-02-2023 NoteHNO ID: [id number] Author: Chloe Be APRN.CLINICAL PRODUCT MANAGER Service: ? 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 CLINICAL PRODUCT MANAGER: Chloe Be APRN.CLINICAL PRODUCT MANAGER Performed by: QUIRINO Indications and Patient Condition Indications for airway management: anesthesia Preoxygenated: yes anesthesia circuit Method: asleep Difficult Mask: No Final Airway Details Final airway type: endotracheal airway Final Endotracheal Airway: ETT Cuffed: yes Successful intubation technique: direct laryngoscopy Devices used: intubating stylet Endotracheal tube insertion site: oral Blade: Linton Blade size: #2 ETT size (mm): 7.0 Measured from: lips Measurement (cm): 22 Placement verified by: capnometry Cormack-Lehane Classification: grade I - full view of glottis Number of attempts at approach: 1 Airway not difficult Comments Atraumatic insertion, baseline dentition intact SIGNATURE: Chloe Be APRN.CLINICAL PRODUCT MANAGER PATIENT NAME: Aislinn Wheeler DATE: June 22, 2023 TIME: 12:24 PM CSN: [id number] Miscellaneous Notes* Telephone Encounter - Vonnie Wilder RN - 06/15/2023 11:24 AM EDT Attempted to call patient for pre op instructions.mailbox is full and unable to LVM. Will try again. documented in this encounterProtestant [facility]acon[facility]10-19-2023 Evaluation note* Encounter Date Diagnosis Assessment Notes Treatment Notes Treatment Clinical Notes May, Insulin long-term use (ICD-10 - Z79.4) May, Type 2 diabetes mellitus with diabetic chronic kidney disease (ICD-10 - E11.22) 1. Uncontrolled, a Type 2 diabetes with A1c of 14.0% 05/18/23 2. Blood glucose levels above target. Glucose 436, pt reported taking lantus 27 units this am and humalog 14 units this am. Pt was given Humalog 11 units according to corrective scale 1:25. Refer to hpi. Recommend pt switch lantus to am increase to 28 units qam. Recommend she use humalog correction scale q4 hours until her glucose is <200 then she can use corrective scale ac, hs. Reviewed with pt how to titrate basal/bolus insulin according to fasting am/meal to meal glucose pattern. Pt encouraged to apply cgm, pt given log sheets- instructed to log glucose, meals, and insulin dosing and bring to f/u apt with DE. Encouraged to have labs done rocio. Reviewed with pt if glucose above 300's and c/o nausea or vomiting she needs to go to ED for evaluation- pt verbalizes understanding.Note: D/t hx uti/urinary c/o do not recommend sglt2 3. Patient is alert, oriented and receptive to making changes or counseling Notes: Seen for an assessment of current glucose pattern, changes in treatment plan, counseling and coordination of care related to diabetes, risks, and benefits of treatment, medications, side effects. Given handouts to reinforce concepts reviewed during counseling, see scanned notes. TOPICS REVIEWED: 1. Time was spent reviewing: a. Basic concepts of diabetes, progressive beta cell , concepts of basal/bolus/correct verenice insulin requirements. Basal: The goal is fasting blood glucose of 90-130mg. If fasting blood glucose starts to run under 100mg 3x's/ week, decrease dose by 10%. Bolus: The goal is to hold the blood glucose level steady meal to meal. If pt. is going to have increased physical activity after a meal, decrease the schedule meal dose prior to the activity by 30-50%. If pt. skips a meal do not take this dose. Correction: The goal is to correct an elevated glucose back into the 100-150mg range b. Nutrition: Concepts of healthy diet reviewed, encouraged to decrease saturated fat in diet and increase non-starchy vegetables and fruits in diet. BMI: Pt. needs to select one small change to decrease caloric intake or increase physical activity to help decrease weight. c. Correct treatment of hypoglycemia, carry a glucose source at all times on your person, in vehicles, and at bedside. Can use glucose tablets/4, four ounces of pop or juice equal to 15 G of carbohydrate. Blood glucose should be 100 mg/dl or higher when driving. d. ADA glucose goals for age and medical complexity reviewed e. Patient questions addressed 2. Activity/exercise: Encouraged to start any form of physical activity. Start low level and increase slowly to a minimal goal of 150 minutes/week. Limit activity to what is allowed by other issues such as cardiac, pulmonary or orthopedic restrictions. 3. Standards of care: Reminded to have an annual dilated eye exam, A1C every 3 months, urine testing for microalbumin once/year, check feet daily and report any cuts or sores that do not appear to be healing. 4. Meter: Plan to check blood glucose: Please check blood glucose levels 4 times/day. Back to back meals reveal effectiveness of bolus dosing.5. [facility] Contact office if any issues or concerns with patterns of hypoglycemia, hyperglycemia, or diabetes medication issues. 6. Prescriptions: dexcom g6 transmitters/sensor s sent to DM. 7. Prescriptions will not be filled unless you are compliant with follow up appointments or have a follow appointment scheduled as per ordered by your provider. Refills should be requested at the time of your visit. May, Dietary counseling and surveillance (ICD-10 - Z71.3) see above May, HTN (hypertension) (ICD-10 - I10) May, Hyperlipidemia (ICD-10 - E78.5) check labs- pt not taking statin May, Chronic kidney disease, stage 3b (ICD-10 - N18.32) keep f/u with neprology May, Diabetic nephropathy associated with type 2 diabetes mellitus (ICD-10 - E11.21) Keep f/u with nephrology May, BMI 25.0-25.9,adult (ICD-10 - Z68.25) May, Other see above [facility] Other 10-02-2023 Note [id number]:[id number] [facility] 05-22-2023 NoteCystoscopy with Botox injection ? Voiding after the procedure: there may be some pain, burning, urgency, frequency and blood tingedurine following the procedure. These symptoms usually resolve within 2-5 days. Drink the amount of fluid it takes to keep the urine pink to yellow or clear in color. Drinking enough water and fluids will help to ease any discomfort after your procedure. ? It may take a few days to a week to notice a gradual improvement in the overactive bladder symptoms. ? If you are having problems that seem out of the ordinary, please call. ? If unable to contact your physician and you feel it is an emergency, go to the nearest emergency room or call 911 ? Do not lift more than fifteen pounds for 1-2 days. If you see a lot of blood, you probably did too much. ? Diet ? you may resume your normal diet. ? Pain control ? You may take extra strength Tylenol or Motrin for discomfort. ? Call if you have a fever over 100 degrees.[facility] 05-22-2023 Hospital Discharge instructions Patient Education 05/22/2023 11:28:59 EU - Cystoscopy with Botox Injection Discharge Instructions (CUSTOM) Cystoscopy with Botox injection Voiding after the procedure: there may be some pain, burning, urgency, frequency and blood tinged urine following the procedure. These symptoms usually resolve within 2-5 days. Drink the amount of fluid it takes to keep the urine pink to yellow or clear in color. Drinking enough water and fluids will help to ease any discomfort after your procedure. It may take a few days to a week to notice a gradual improvement in the overactive bladder symptoms. If you are having problems that seem out of the ordinary, please call. If unable to contact your physician and you feel it is an emergency, go to the nearest emergency room or call 911 Do not lift more than fifteen pounds for 1-2 days. If you see a lot of blood, you probably did too much. Diet you may resume your normal diet. Pain control You may take extra strength Tylenol or Motrin for discomfort. Call if you have a fever over 100 degrees. Follow Up Care 05/03/2023 10:48:47 With:Lisa Porras Address: [address], [place] [address] [phone] Business (1) [address], [address] [address] [phone] Business (1) When: Unknown Comments:Office to schedule follow up in 1 month with [facility]09-28-2023 Evaluation note* Encounter Date Diagnosis Assessment Notes Treatment Notes Treatment Clinical Notes Apr, Insulin long-term use (ICD-10 - Z79.4) Apr, Type 2 diabetes mellitus with diabetic chronic kidney disease (ICD-10 - E11.22) 1. Uncontrolled, a Type 2 diabetes with A1c of 14.0% 2. Blood glucose levels above target. Denies hx of pancreatitis/men/mt c. Discussed with pt adding once daily glp1 and longer acting insuin with combination xultphy. Pt reports had tried trulicity in the past. Pt agreeable. Pt has been bolusing after meals with humalog and using only corrective scale. Recommend a 1:7 ICR ac tid and corrective scale 1:25 ac, (hs if >200 half dose). Reviewed with pt dosing based on meal size 4-6-8-10 units. Pt interest in insulin pump. Recommend pt learn carb counting, pt agreeable to apt with RD/RN DE. Reviewed with pt importance of taking humalog 15 minutes ac for improved glycemia. Pt encouraged to apply cgm, pt given log sheets- instructed to log glucose, meals, and insulin dosing and bring to f/u apt with DE 05/24/23. Note: D/t hx uti/urinary c/o do not recommend sglt2 3. Patient is alert, oriented and receptive to making changes or counseling Notes: Seen for 60 minutes for an assessment of current glucose pattern, changes in treatment plan, counseling and coordination of care related to diabetes, risks, and benefits of treatment, medications, side effects. Given handouts to reinforce concepts reviewed during counseling, see scanned notes. TOPICS REVIEWED: 1. Time was spent reviewing: a. Basic concepts of diabetes, progressive beta cell , concepts of basal/bolus/correct verenice insulin requirements. Basal: The goal is fasting blood glucose of 90-130mg. If fasting blood glucose starts to run under 100mg 3x's/ week, decrease dose by 10%. Bolus: The goal is to hold the blood glucose level steady meal to meal. If pt. is going to have increased physical activity after a meal, decrease the schedule meal dose prior to the activity by 30-50%. If pt. skips a meal do not take this dose. Correction: The goal is to correct an elevated glucose back into the 100-150mg range b. Nutrition: Concepts of healthy diet reviewed, encouraged to decrease saturated fat in diet and increase non-starchy vegetables and fruits in diet. BMI: Pt. needs to select one small change to decrease caloric intake or increase physical activity to help decrease weight. c. Correct treatment of hypoglycemia, carry a glucose source at all times on your person, in vehicles, and at bedside. Can use glucose tablets/4, four ounces of pop or juice equal to 15 G of carbohydrate. Blood glucose should be 100 mg/dl or higher when driving. d. ADA glucose goals for age and medical complexity reviewed e. Patient questions addressed 2. Activity/exercise: Encouraged to start any form of physical activity. Start low level and increase slowly to a minimal goal of 150 minutes/week. Limit activity to what is allowed by other issues such as cardiac, pulmonary or orthopedic restrictions. 3. Standards of care: Reminded to have an annual dilated eye exam, A1C every 3 months, urine testing for microalbumin once/year, check feet daily and report any cuts or sores that do not appear to be healing. 4. Meter: Plan to check blood glucose: Please check blood glucose levels 4 times/day. Back to back meals reveal effectiveness of bolus dosing.5. [facility] 1 [facility]. Contact office if any issues or concerns with patterns of hypoglycemia, hyperglycemia, or diabetes medication issues. 6. Prescriptions: Xultophy sent to DM. 7. Prescriptions will not be filled unless you are compliant with follow up appointments or have a follow appointment scheduled as per ordered by your provider. Refills should be requested at the time of your visit. 8. Apt with REY CALLOWAY 05/24/23 for cgm download review of log sheets. Schedule apt with VINCENT for instruction of carb counting. Apr, Dietary counseling and surveillance (ICD-10 - Z71.3) see above Apr, HTN (hypertension) (ICD-10 - I10) uncontrolled- f/u with pcp for further recommendation- not currently on lorie or arb Apr, Hyperlipidemia (ICD-10 - E78.5) check labs- pt not taking statin Apr, Chronic kidney disease, stage 3b (ICD-10 - N18.32) keep f/u with neprology Apr, Diabetic nephropathy associated with type 2 diabetes mellitus (ICD-10 - E11.21) Keep f/u with nephrology Apr, BMI 24.0-24.9, adult (ICD-10 - Z68.24) see above [facility] Other 09-28-2023 Miscellaneous Notes* Telephone Encounter - Latosha Faulkner - 05/18/2023 12:57 PM EDT Consult notes sent back to Dr. Lisa Porras , phone [phone]. From Dr. Ballard office. documented in this encounterProtest[facility]09-27-2023 NoteHNO ID: [id number] Author: Taurus Ballard MD Service: ? Author Type: Physician Type: Progress Notes Filed: 05/17/2023 1:35 PM Note Text: [facility] FOLLOW-UP PATIENT HISTORY AND PHYSICAL EXAM PATIENT INFO: Aislinn Wheeler 63 year old REFERRING M.D.: No referring provider defined for this encounter. CHIEF COMPLAINT: Cystic Bosniak 2F lesion, ANATOLIY HISTORY: Aislinn Wheeler is a 63 yr old female with a hx of urinary incontinence, uncontrolled DM, and severe urinary retention. Had b/l hydronephrosis and ANATOLIY which resolved with chaves catheter placement. Pt followed with Dr. Nolen and Alicia Pablo. MRI showed a bosniak 2F lesion CT 05/10/2023- left lower pole cystic lesion measuring 9.4 x 6.8 cm rotating the kidney RBUS 05/11/23- 8.7 x 8.2x 7.1 cystic lesion Pt reports left flank pain when bending or moving. Had cysto/UDS with Dr. Nolen 03/01/2021 UDS: No detrusor function on voiding- all valsalva voiding. No DO or BURKE. Able to void 89cc and instilled 318cc. Last seen by Bina Pablo 10/27/2021 at which time the plan was lifestyle modifications and Myrbetriq for OAB, UCX for dysuria, and continue CIC 4x daily for retention LABS No results found for: PSA Creatinine (mg/dL) Date Value 01/29/2021 1.35 01/21/2021 1.51 01/20/2021 1.46 01/19/2021 1.92 01/19/[address] scan (outside records) [facility] 09/28/21 IMPRESSION: Since the prior CT scan and MRI the left kidney shows significant rotation on its vertical axis. The left renal pelvis now points laterally. This may relate to mass effect and rotation from a large lateral left renal cyst which shows interval growth from prior studies. This cyst has minimal internal complexity including septations. As above, there is mild dilatation of the mid to distal left ureter now present of unclear significance or etiology as I don't identify obstructing stone or mass. Follow-up CT imaging with IV contrast may be helpful for further evaluation of these findings including the left ureter, left kidney and complex cyst in the left kidney. MRI Kidney 01/20/2021 IMPRESSION: Bosniak category 2F cyst within the lower pole of the left kidney measuring 7.8 x 7 x 7.2 cm. Recommend follow-up in 6 months. Mild bilateral hydronephrosis. PAST MEDICAL HISTORY Diagnosis Date Asthma Diabetes (HCC) PAST SURGICAL HISTORY Procedure Laterality Date ANKLE SURGERY HX Left HYSTERECTOMY HX NECK SURGERY HX SHOULDER SURGERY HX Left Social History Tobacco Use Smoking status: Never Smokeless tobacco: Never Vaping Use Vaping Use: Never used Substance Use Topics Alcohol use: Yes Comment: socially Drug use: Never REVIEW OF SYSTEMS: CONSTITUTIONAL: Patient reports no recent fever or weight loss EYES: Negative for redness, blurry vision, double vision or loss of vision CARDIOVASCULAR: Negative for chest pain. RESPIRATORY: Negative for cough, hemoptysis, wheezing, COPD, dyspnea or shortness of breath GI: No nausea, vomiting, or diarrhea MUSCULOSKELETAL: denies back pain or muscular weakness SKIN: Negative for lesions, rash, and itching PSYCH: Negative for sleep disturbance, mood disorder and recent psychosocial stressors. ALLERGY/IMMUNOLOGIC: Latex All other reviewed and negative other than HPI. PHYSICAL EXAM: constitutional: appears healthy in no acute distress cardiovascular: appears well perfused, good color respiratory: normal respiratory motion gi: abdomen soft, non-tender without masses, hernia or organomegaly skin: no rashes or bruises noted. Extremities: Extremities normal. No deformities, edema, or skin discoloration. Neuro: Gait normal. Sensation grossly intact. IMPRESSION: Aislinn Wheeler is a 63 yr old female with a hx of urinary incontinence, uncontrolled DM, and severe urinary retention. Had b/l hydronephrosis and ANATOLIY which resolved with chaves catheter placement. Pt followed with Dr. Nolen and Alicia Pablo. MRI showed a bosniak 2F lesion. S/p cholecystectomy and hysterectomy. Reviewed most recent imaging. US on 09/12/22 showed a 8.7 x 8.2x 7.[address] 05/10/2023 which showed left lower pole cystic lesion measuring 9.4 x 6.8 cm rotating the kidney. Pt reports left flank pain when bending or moving. Recommended laparoscopic robotic kidney cyst ablation. Discussed risks and benefits with pt and described procedure in detail. All questions and concerns were addressed Discussed R/B/A of an laparoscopic left cyst decordication . Discussed risks of bleeding (possibly requiring transfusion), infection, injury to adjacent structures (e.g. spleen, pancreas, aorta, among other structures). We talked about the possibility of conversion to open surgery. We also talked about possible medical complications including, but not limited to cardiac, respiratory and renal complications, as well as DVT/PE and other life threatening or minor complicatio (more content not included)...[facility] [id number] Hospital Discharge instructions Patient Education 02/22/2023 09:35:15 Kegel Exercises Kegel Exercises Kegel exercises can help strengthen your pelvic floor muscles. The pelvic floor is a group of muscles that support your rectum, small intestine, and bladder. In females, pelvic floor muscles also help support the uterus. These muscles help you control the flow of urine and stool (feces). Kegel exercises are painless and simple. They do not require any equipment. Your provider may suggest Kegel exercises to: Improve bladder and bowel control. Improve sexual response. Improve weak pelvic floor muscles after surgery to remove the uterus (hysterectomy) or after , in females. Improve weak pelvic floor muscles after prostate gland removal or surgery, in males. Kegel exercises involve squeezing your pelvic floor muscles. These are the same muscles you squeezewhen you try to stop the flow of urine or keep from passing gas. The exercises can be done while sitting, standing, or lying down, but it is best to vary your position. Ask your health care provider which exercises are safe for you. Do exercises exactly as told by your health care provider and adjust them as directed. Do not begin these exercises until told by your health care provider. Exercises How to do Kegel exercises: 1.Squeeze your pelvic floor muscles tight. You should feel a tight lift in your rectal area. If youare a female, you should also feel a tightness in your vaginal area. Keep your stomach, buttocks, and legs relaxed. 2.Hold the muscles tight for up to 10 seconds. 3.Breathe normally. 4.Relax your muscles for up to 10 seconds. 5.Repeat as told by your health care provider. Repeat this exercise daily as told by your health care provider. Continue to do this exercise for at least 4 6 weeks, or for as long as told by your health care provider. You may be referred to a physical therapist who can help you learn more about how to do Kegel exercises. Depending on your condition, your health care provider may recommend: Varying how long you squeeze your muscles. Doing several sets of exercises every day. Doing exercises for several weeks. Making Kegel exercises a part of your regular exercise routine. This information is not intended to replace advice given to you by your health care provider. Make sure you discuss any questions you have with your health care provider. Document Revised: 12/16/2021 Document Reviewed: 12/16/2021 [employer] Patient Education 2022 [employer]. Follow Up Care 09/13/2022 14:59:43 With:Vern TAVERAS, Lisa Montiel, URL, [facility] Address: When:Within 2 Month(s) Comments:[facility] Evaluation note* Encounter Date Diagnosis Assessment Notes Treatment Notes Treatment Clinical Notes December, Chronic kidney disease, stage 3b (ICD-10 - N18.32) Patient likely has diabetic and hypertensive nephropathy at baseline. Patient has been having long-term of uncontrolled diabetes with hemoglobin A1c ranges between 11 and 15%. I am not sure the patient has significant proteinuria. No UA available. No proteinuria quantification. Patient needs better control of diabetes to preserve kidney function. I explained the patient the necessity of controlling diabetes and blood pressure to attenuate CKD progression. Patient verbalized understanding. I asked the patient to stay away from NSAIDs completely. I will check renal function panel again along with protein to creatinine ratio. I asked the patient to keep good hydration. I am okay with IV contrast for renal cyst work-up. I recommend to give the patient IV fluid 1 ml/kg/h for 6 hours prior to IV contrast after to have 6 hours postcontrast exposure. I recommend to recheck renal function panel in 48 hours after IV contrast exposure. I will schedule the patient to follow-up with me in 3 to 4 months December, Diabetic nephropathy associated with type 2 diabetes mellitus (ICD-10 - E11.21) This is a likely etiology of the patient's CKD. Patient has long history of uncontrolled diabetes. I asked the patient to follow-up with Dr. Hairston again for better control of diabetes. I recommend to add SLG 2 inhibitor to preserve kidney function. December, Anemia, unspecified type (ICD-10 - D64.9) Patient has history of anemia. No recent CBC on 29 December. I will check CBC along with iron, folate and vitamin B12 studies next visit December, Renal cyst (ICD-10 - N28.1) Patient follows with urology clinic in [facility] for enlarging left renal cyst. December, Hyperkalemia (ICD-10 - E87.5) Patient has history of hyperkalemia. I asked the patient to follow low-potassium diet. I will recheck potassium level next visit. December, Primary hypertension (ICD-10 - I10) Blood pressure is above the target. Blood pressure target is below 130/80. Patient started recently on new blood pressure medications but she does not know the name. I asked patient to bring her blood pressure medication with her next office visit to update on her medications. I asked the patient to follow low-salt diet and to monitor her blood pressure at home and to call my office if her blood pressure persistently more than 150/90. [employer] Other 02-01-2023 Hospital Discharge instructions Patient Education 09/21/2022 07:53:58 Kegel Exercises Kegel Exercises Kegel exercises can help strengthen your pelvic floor muscles. The pelvic floor is a group of muscles that support your rectum, small intestine, and bladder. In females, pelvic floor muscles also help support the womb (uterus). These muscles help you control the flow of urine and stool. Kegel exercises are painless and simple, and they do not require any equipment. Your provider may suggest Kegel exercises to: Improve bladder and bowel control. Improve sexual response. Improve weak pelvic floor muscles after surgery to remove the uterus (hysterectomy) or (females). Improve weak pelvic floor muscles after prostate gland removal or surgery (males). Kegel exercises involve squeezing your pelvic floor muscles, which are the same muscles you squeezewhen you try to stop the flow of urine or keep from passing gas. The exercises can be done while sitting, standing, or lying down, but it is best to vary your position. Exercises How to do Kegel exercises: 1.Squeeze your pelvic floor muscles tight. You should feel a tight lift in your rectal area. If youare a female, you should also feel a tightness in your vaginal area. Keep your stomach, buttocks, and legs relaxed. 2.Hold the muscles tight for up to 10 seconds. 3.Breathe normally. 4.Relax your muscles. 5.Repeat as told by your health care provider. Repeat this exercise daily as told by your health care provider. Continue to do this exercise for at least 4 6 weeks, or for as long as told by your health care provider. You may be referred to a physical therapist who can help you learn more about how to do Kegel exercises. Depending on your condition, your health care provider may recommend: Varying how long you squeeze your muscles. Doing several sets of exercises every day. Doing exercises for several weeks. Making Kegel exercises a part of your regular exercise routine. This information is not intended to replace advice given to you by your health care provider. Make sure you discuss any questions you have with your health care provider. Document Released: 07/24/2013 Document Revised: 03/27/2019 Document Reviewed: 03/27/2019 Elsevier Patient Education 2020 Elsevier Inc. Follow Up Care 09/14/2022 14:44:34 With:Vern TAVERAS, Lisa Montiel URL, URO Address: When: Unknown [facility] [place] 01-25-2023 NoteChief Complaint Referral *Urinary Leaking HPI Staff Evaluation requested by Dr Gotti due to urinary leaking. Pt is a new pt. Last seen in our office 11/18/14 by DLS due to Renal Cyst, Abdominal Pain, Urgency and Stress Incontinence. Hx of hysterectomy During Kidney Failure did self cath for approximately 4 months. Denies visible blood in urine. Does have occasional pain during urination, for at least a couple months. Voiding every hr, strong odor. Wears a pad, changes 3x a day. Leaks with sneezing, coughing, on the way to the restroom. Occasional full incontinence. Does not feel empty. PVR today is 71cc Occasional Lt flank pain. History of Present Illness staff HPI reviewed and agree. Tests Reviewed: Reviewed UA, referral records. Review of Systems PHQ Score Initial Depression Screen Score: 0 no fever, chills, malaise, myalgia. no rash/lesions. no chest pain, palpitations, or SOB. no abdominal pain, nausea, vomiting. no unilateral calf swelling, redness, pain Physical Exam Vitals & Measurements HT: 60 in HT: 153 cm WT: 52.5 kg WT: 115.5 lb BMI: 22.43 General: nontoxic, NAD Mouth: moist mucosa Lungs: normal respiratory effort Cardio: regular rate, good distal perfusion Abdomen: nondistended, no suprapubic distention or tenderness, no CVA tenderness Neurologic: Grossly normal Skin: No rashes or suspicious lesions Assessment/Plan Last seen in our office 11/18/14 by DLS due to renal cyst, abdominal pain, urgency, and stress incontinence. pt currently in cast due to toe amputation and several broken toes (sepsis, diabetes). 07/06/22: Crea 2.01. eGFR 25 08/03/22: Crea 1.36 eGFR 36 1. Mixed incontinence (N39.46: Mixed incontinence) New patient referred by Dr. Gotti due to urinary leaking. Hx of hysterectomy. UA today negative for blood and infection. ICIQ-SF 17. BURKE - Leaks with sneezing, coughing. UUI - on the way to the restroom. Occasional full incontinence. Occasional unaware incontinence. Wears a pad, changes 3x/day. Leakage has worsened over the past few months. Urge > stress. Encouraged tight diabetes control (A1c in Nov >11). Bladder irritants discussed and info sheet provided. Discussed medication management including anticholinergics and Myrbetriq. Myrbetriq is often preferable due to lower side effect profile, but most insurances don't cover it without trying anticholinergics first. Therefore we will start with Oxybutynin. Pt will start with lowest daily dose and slowly titrate up as pt tolerates. I explained the most common side effects are dry mouth, dry eyes, and constipation. We discussed OTC options to help with these side effects. Pt will stop medication and call office if side effects become intolerable. We did discuss that there is a documented potential side effect of mental status changes/confusion in the elderly, but that this risk is quite low. Pt and I agree that potential benefit outweigh risk at this time. Pt to start Oxybutynin 5 mg ER QD. Rx sent to pharmacy. Pt to try new med for at least 1 month, to call if would like medication dose increased. Follow up w me 3 mos after starting new med. 2. Renal cyst (N28.1: Cyst of kidney, acquired) MRI w/won con done 01/20/21 shows Bosniak category 2F cyst within the lower pole of the left kidneymeasuring 7.8 x 7 x 7.2 cm this is stable as far as 2F staging, but shows increase in size (previously 10/2014 - 7.2 x 5.8 x 5.4cm and 03/2014 - 6.4 x 5.1 x 4.6cm) Pt reports increasing pain L flank over the past 6-12 mos. This is now almost constant. Definitely every day. Ranges from moderate to severe. Interferes with ADLs. Would like to discuss intervention options as she recalls DLS spoke with her about removal and drainage when first diagnosed. Will obtain updated imaging - CONNOR - and have her f/u w KML to discuss treatment options. 3. Feeling of incomplete bladder emptying (R39.14: Feeling of incomplete bladder emptying) - CT AP wo con done 01/17/21 shows moderate bilateral hydroureteronephrosis. Bilateral ureters are obstructed at the UVJ level. No obstructing stone or mass detected. Obstruction may be secondary to the downstream bladder outlet obstruction. Mildly dilated bladder with bladder wall thickening and mildly lobulated bladder chanel suggesting bladder outlet obstruction. - Pt states during that admission she ended up having to have chaves for a while and then do CIC for a few months. However she eventually no longer needed CIC. PVR today is 71ml. However pt doesn't always feel like she empties fully. 4. Glucosuria (R81: Glycosuria) UA today shows 100 mg/dL. Pt is diabetic and uncontrolled. A1c in Jun 11.7% Encouraged tight glucose control. Follow-up With When Contact Information HEIDY ARNOLD PA-C, URL [address] [facility] [place] [address] Additional Instructions: f/u with KML after CONNOR and in 3 mos with JUAN after starting new med Patient Education Overactive Bladder, Adult Documentation chase (more content not included)...[facility] Comment on above:Result Comment: Electronically Signed By: HEIDY ARNOLD PA-C\.br\Date and Time Signed: 09/14/2312:21 EST\.br\Electronically Co-Signed By: Dina Jolly\.br\Date and Time Co-Signed: 09/13/22 14:56 [id number] Hospital Discharge instructions Patient Education 09/13/2022 13:49:42 Overactive Bladder, Adult Overactive Bladder, Adult Overactive bladder refers to a condition in which a person has a sudden need to pass urine. The person may leak urine if he or she cannot get to the bathroom fast enough (urinary incontinence). A person with this condition may also wake up several times in the night to go to the bathroom. Overactive bladder is associated with poor nerve signals between your bladder and your brain. Your bladder may get the signal to empty before it is full. You may also have very sensitive muscles thatmake your bladder squeeze too soon. These symptoms might interfere with daily work or social activities. What are the causes? This condition may be associated with or caused by: Urinary tract infection. Infection of nearby tissues, such as the prostate. Prostate enlargement. Surgery on the uterus or urethra. Bladder stones, inflammation, or tumors. Drinking too much caffeine or alcohol. Certain medicines, especially medicines that get rid of extra fluid in the body (diuretics). Muscle or nerve weakness, especially from: ?A spinal cord injury. ?Stroke. ?Multiple sclerosis. ?Parkinson's disease. Diabetes. Constipation. What increases the risk? You may be at greater risk for overactive bladder if you: Are an older adult. Smoke. Are going through menopause. Have prostate problems. Have a neurological disease, such as stroke, dementia, Parkinson's disease, or multiple sclerosis (MS). Eat or drink things that irritate the bladder. These include alcohol, spicy food, and caffeine. Are overweight or obese. What are the signs or symptoms? Symptoms of this condition include: Sudden, strong urge to urinate. Leaking urine. Urinating 8 or more times a day. Waking up to urinate 2 or more times a night. How is this diagnosed? Your health care provider may suspect overactive bladder based on your symptoms. He or she will diagnose this condition by: A physical exam and medical history. Blood or urine tests. You might need bladder or urine tests to help determine what is causing your overactive bladder. You might also need to see a health care provider who specializes in urinary tract problems (urologist). How is this treated? Treatment for overactive bladder depends on the cause of your condition and whether it is mild or severe. You can also make lifestyle changes at home. Options include: Bladder training. This may include: ?Learning to control the urge to urinate by following a schedule that directs you to urinate at regular intervals (timed voiding). ?Doing Kegel exercises to strengthen your pelvic floor muscles, which support your bladder. Toning these muscles can help you control urination, even if your bladder muscles are overactive. Special devices. This may include: ?Biofeedback, which uses sensors to help you become aware of your body's signals. ?Electrical stimulation, which uses electrodes placed inside the body (implanted) or outside the body. These electrodes send gentle pulses of electricity to strengthen the nerves or muscles that control the bladder. ?Women may use a plastic device that fits into the vagina and supports the bladder (pessary). Medicines. ?Antibiotics to treat bladder infection. ?Antispasmodics to stop the bladder from releasing urine at the wrong time. ?Tricyclic antidepressants to relax bladder muscles. ?Injections of botulinum toxin type A directly into the bladder tissue to relax bladder muscles. Lifestyle changes. This may include: ?Weight loss. Talk to your health care provider about weight loss methods that would work best for you. ?Diet changes. This may include reducing how much alcohol and caffeine you consume, or drinking fluids at different times of the day. ?Not smoking. Do not use any products that contain nicotine or tobacco, such as cigarettes and e-cigarettes. If you need help quitting, ask your health care provider. Surgery. ?A device may be implanted to help manage the nerve signals that control urination. ?An electrode may be implanted to stimulate electrical signals in the bladder. ?A procedure may be done to change the shape of the bladder. This is done only in very severe cases. Follow these instructions at home: Lifestyle Make any diet or lifestyle changes that are recommended by your health care provider. These may include: ?Drinking less fluid or drinking fluids at different times of the day. ?Cutting down on caffeine or alcohol. ?Doing Kegel exercises. ?Losing weight if needed. ?Eating a healthy and balanced diet to prevent constipation. This may include: ?Eating foods that are high in fiber, such as fresh fruits and vegetables, whole grains, and beans. ?Limiting foods that are high in fat and processed sugars, such as fried and sweet foods. General instructions Take imao-vbc-znziidy and prescription medicines only as told by your health care provider. If you were prescribed an antibiotic medicine, take it as told by your health care provider. Do notstop taking the antibiotic even if you start to feel better. Use any implants or pessary as told by your health care provider. If needed, wear pads to absorb urine leakage. Keep a journal or log to track how much and when you drink and when you feel the need to urinate. This will help your health care provider monitor your condition. Keep all follow-up visits as told by your health care provider. This is important. Contact a health care provider if: You have a fever. Your symptoms do not get better with treatment. Your pain and discomfort get worse. You have more frequent urges to urinate. Get help right away if: You are not able to control your bladder. Summary Overactive bladder refers to a condition in which a person has a sudden need to pass urine. Several conditions may lead to an overactive bladder. Treatment for overactive bladder depends on the cause and severity of your condition. Follow your health care provider's instructions about lifestyle changes, doing Kegel exercises, keeping a journal, and taking medicines. This information is not intended to replace advice given to you by your health care provider. Make sure you discuss any questions you have with your health care provider. Document Released: 06/03/2010 Document Revised: 11/28/2019 Document Reviewed: 08/23/2018 [employer] Patient Education 2020 [employer]. Follow Up Care 08/24/2022 11:21:49 With:CATALINA VIRGEN, HEIDY Rodriguez, URL Address: [address] [place] [address] When: Unknown [facility] 06-09-2021 Miscellaneous Notes* Telephone Encounter - Barbara Talbot - 01/27/2021 10:30 AM EDT Scheduled 02/15 * Telephone Encounter - Barb Silva MD - 01/27/2021 9:40 AM EDT Please schedule hospital follow up with Guy Overton Deitzer, or Sasha. Virtual ok [facility] NoteHNO ID: [id number] Author: Griselda Diaz (Construction Accountant) Service: ? Author Type: ? Type: Plan of Care Filed: 01/21/2021 4:28 PM Note Text: The following medications were delivered to the patient: Medication List START taking these medications X ciprofloxacin HCl 250 mg tablet Commonly known as: CIPRO Take 1 tablet by mouth once daily for 3 days. Notes to patient: Take tomorrow morning CHANGE how you take these medications insulin glargine 100 unit/mL injection med update, patient has at home Commonly known as: LANTUS Inject 25 Units subcutaneously daily at bedtime. What changed: ? how much to take ? when to take this CONTINUE taking these medications albuterol HFA 90 mcg/actuation inhaler Commonly known as: PROVENTIL HFA, VENTOLIN HFA budesonide-formoterol 80-4.5 mcg/actuation inhaler Commonly known as: SYMBICORT HYDROcodone-Acetaminophen 7.5-325 mg per tablet Commonly known as: NORCO pregabalin 150 mg capsule Commonly known as: LYRICA You might also be taking other medications not listed above. If you have questions about any of your other medications, talk to the person who prescribed them or your Primary Care Provider. STOP taking these medications insulin aspart U-100 100 unit/mL Commonly known as: NovoLOG LEVEMIR FLEXTOUCH U-100 INSULIN 100 unit/mL (3 mL) injection pen Generic drug: insulin detemir U-100 Griselda Diaz (Construction Accountant) PAGER: paris January 21, 2021 4:27 [id number] NoteHNO ID: [id number] Author: ELIZABETH Kothari Service: Care Management Author Type: Labor Relations Teacher Type: Care Mgt Progress Note Filed: 01/21/2021 1:39 PM Note Text: CARE MANAGEMENT DISCHARGE NOTE SERVICE DATE: 01/21/2021 SERVICE TIME: 1300 LOS: 4 days Admission Date: 01/17/2021 DISCHARGE ARRANGEMENT (list agency and phone number) Discharge Arrangement: Home;Home Long-Term Care: Nursing;PT;[facility] ASSESSMENT: Maira Davila to transport home [phone] HANDOFF COMMUNICATION: Handoff to: Other Caregiver;Primary Care Physician Primary Care Physician Name/Phone: Madeline Jordan PA-C Other Caregiver [facility] TRANSPORTATION ARRANGEMENTS: Transportation Arrangements: Car (Family to transport) ADDITIONAL CONTACT RESOURCES: [facility] not able to accept. [place] of choice provided and sent to first available to accept to her service area. [facility] willing [facility] accept. [facility]. I spoke with maira who plans on paying for services out of pocket until pt's insurance becomes active February 18, 2021 Discharge Information Row Name ED to Hosp-Admission (Current) from 01/17/[address] [facility] Fax# Care to start after your appointment with internal medicine on 01/25/2021 for additional orders. The agency will be contacting you to set this up [facility] Equipment Needed Walker was delivered to hospital room prior to discharge [facility] willing to accept pending pt has her initial appointment with internal medicine on 01/25/2021. Both pt and grdtr Chloe were advised. Dr Hansen also provided script for outpt therapy should home care fall through or cost too high for grdtr to cover. Chloe to call [facility] to discuss further. Walker was delivered to room and prescription was sent to [facility]. Chloe to roll picker. No other homegoing needs. SIGNATURE: ELIZABETH Kothari PATIENT NAME: Aislinn Wheeler DATE: January 21, 2021 TIME: 1:32 PM PAGER/CONTACT #: [phone] [id number] NoteHNO ID: [id number] Author: Derik Daniel Service: Care Management Author Type: Resource Center Bat Carrier Type: Care Mgt Progress Note Filed: 01/21/2021 11:24 AM Note Text: CARE MANAGEMENT PROGRESS NOTE SERVICE DATE: 01/21/2021 SERVICE TIME: 950 LOS: 4 days IMM Follow Up Copy Given: Yes Copy given to:: Patient Method: In Person SIGNATURE: Derik Daniel PATIENT NAME: Aislinn Wheeler DATE: January 21, 2021 TIME: 11:23 AM PAGER/CONTACT #: [phone] [id number] NoteHNO ID: [id number] Author: Ailyn Salas RN Service: Care Management Author Type: Registered Nurse Type: Care Mgt Progress Note Filed: 01/20/2021 3:29 PM Note Text: CARE MANAGEMENT PROGRESS NOTE SERVICE DATE: 01/20/2021 SERVICE TIME: 3:09 PM LOS: 3 days [place] of Choice Given: Yes Level of Care Discussed: Home Care Financial Disclosure Provided: No Financial Disclosure Comments: [facility] does not service area Provider List: Home Care Provider list within the patient's requested geographic area shared with the patient/family: Yes Quality and resource use metrics shared with the patient that are relevant to the patient's goals of care and treatment preferences:: Yes Met with patient for continued discharge planning. Patient had Medicare part A only. This will cover her home care. Patient is not sure she wants home care. Explained the benefits. Patient is willing to have a referral sent. Patient does not have a PCP. [facility] can provide a visiting provider to come out and see patient and follow for home care. Patient needs a walker. Medicare part A will not cover it. Patient states she will self pay on her credit card to have delivered to bedside. Patient states grand daughter will transport home at discharge. SIGNATURE: Ailyn Salas RN PATIENT NAME: Aislinn Wheeler DATE: January 20, 2021 TIME: 3:09 PM PAGER/CONTACT #: [phone] [id number] NoteHNO ID: [id number] Author: Inna Hansen DO Service: Hospital Medicine Author Type: Physician Type: Progress Notes Filed: 01/20/2021 12:37 PM Note Text: DEPARTMENT OF HOSPITAL MEDICINE PROGRESS NOTE SERVICE DATE: 01/20/2021 SERVICE TIME: 10:37 AM Hospital Medicine/Primary Attending: Inna Hansen DO NIGHT AND WEEKEND COVERAGE: DELMY COVERAGE: Days: [phone], please contact via [place] Nights: [phone], please page [facility] Hospitalist Night coverage pager [phone] Subjective INTERVAL HPI: nausea and vomiting this morning, now improved. No abdominal pain. Current Facility-Administered Medications Medication Dose Route Frequency - albuterol 2.5 mg /3 mL (0.083 %) 2.5 mg (PROVENTIL) 2.5 mg INHALATION q 4 H PRN - fluticasone-vilanterol 100-25 mcg/dose 1 Inhalation (BREO ELLIPTA) 1 Inhalation INHALATION DAILY - dextrose 40 % 15 g 15 g ORAL PRN Or - glucagon 1 mg injection 1 mg INTRAMUSCULAR PRN Or - dextrose 50% in water 25 mL syringe 12.5 g INTRAVENOUS PRN - cefTRIAXone 1 g in D5W 100 mL MB+ (ROCEPHIN) 1 g INTRAVENOUS q 24 H - insulin lispro injection (rapid acting) (HumaLOG) SUBCUTANEOUS w MEALS - insulin glargine 15 Units pen (long acting) (LANTUS SOLOSTAR, BASAGLAR KWIKPEN) 15 Units SUBCUTANEOUS AT BEDTIME - HYDROcodone 5 mg - acetaminophen 325 mg tablet (NORCO) 1 tablet ORAL q 6 H PRN - pregabalin 150 mg cap(s) (LYRICA) 150 mg ORAL TID - ondansetron (PF) 4 mg injection (ZOFRAN) 4 mg INTRAVENOUS q 6 H PRN - iv contrast (radiology procedure) INTRAVENOUS DIRECTED PRN Objective PHYSICAL EXAM: BP 100/61 Pulse 85 Temp (Src) 98.4 (Oral) Resp 16 Ht 5' 0 (1.52m) Wt 102 lb 1.2 oz (46.3kg) SpO2 96% BMI 19.93 kg/(m2). O2 Therapy: Room Air Physical Exam Performed Gen: NAD, AANDO HEENT: MMM Heart: RRR Lungs: CTAB. No accessory muscle use Abd: soft, NT, ND. NABS. No masses Ext: no edema Skin: no rashes Neuro: Face symmetric. Moves all four extremities without gross deficits. : Chaves in place; light yellow urine in collection bag Lines, Drains, and Airways Line Peripheral 01/17/21 1650 Short Right Antecubital 22 Gauge 2 days Peripheral 01/17/21 1700 Short Left Arm 22 Gauge 2 days Drain Indwelling Urinary Catheter 01/17/21 Assessment Chaves 3 days Reviewed Chaves and needs to be continued: REASONS: Urinary retention or obstruction DATA: Diagnostic tests reviewed for today's visit: Most recent labs Most recent imaging Assessment/Plan Problem List Sepsis (HCC) POA: Yes Pyelonephritis POA: Yes Hydronephrosis due to obstruction of ureter POA: Yes Acute cystitis without hematuria POA: Unknown Acute bilateral obstructive uropathy POA: Yes Hyponatremia POA: Yes ANATOLIY (acute kidney injury) (HCC) POA: Yes Hyperkalemia POA: Yes Severe protein-calorie malnutrition (HCC) POA: Unknown Principal Problem: Sepsis (HCC) Pyelonephritis Complicated UTI Hydronephrosis due to obstruction of ureter CT reviewed. Concern for bladder outlet obstruction, suspected mass. Chaves placed Leukocytosis improving. Afebrile. HDS. Sepsis resolved. Continue ceftriaxone Urine culture: Proteus. Blood cultures: NGTD Urology consult appreciated. Plan for discharge with Chaves and outpatient cystoscopy. Left renal cystic lesion MRI kidneys today Acute bilateral obstructive uropathy ANATOLIY Cr 2.93 on admission. Appears acute. Improving with IV fluids, which have now been held for sodium considerations (see below). Continue to follow Nephrology consult appreciated. Hyponatremia Sodium 120 on admission. Now resolved with D5W, which has been stopped. Nephrology consult appreciated. Hyperkalemia resolved Medication and Non-Pharmacologic VTE Prophylaxis/Anticoagulants 01/17/212214 pneumatic compression stockings ([place], [place]) 01/17/212214 activity - mobilize patient ([place]) VTE Prophylaxis: VTE prophylaxis appropriate Disposition: TBD Inna DO Tyrone January 20, 2021 10:39 [id number] NoteHNO ID: [id number] Author: Benjamin Bernal MD Service: Urology Author Type: Resident Type: Progress Notes Filed: 01/19/2021 4:15 PM Note Text: Urology Progress Note Seen and examined. BP 101/60 Pulse 77 Temp 36.4 ?C (97.5 ?F) (Oral) Resp 18 Ht 152.4 cm (5') Wt 44.1 kg (97 lb 3.6 oz) SpO2 96% BMI 18.99 kg/m? General: lying in bed in no acute distress Lungs: even unlabored respirations Abdomen: soft Genitourinary: chaves catheter draining cy urine Extremities: no LE edema, SCDs on CBC, Coags, BMP, Mg, Phos Recent Labs 01/19/21 0538 01/19/21 0537 01/19/21 0016 01/18/21 1743 01/18/21 0556 01/18/21 0556 01/17/21 1710 01/17/21 1710 WBC 12.14* -- -- -- -- 17.03* -- 17.33* HB 9.1* -- -- -- -- 9.9* -- 11.3* HCT 27.5* -- -- -- -- 31.2* -- 35.1* PLT 297 -- -- -- -- 310 -- 345 NA -- 128* 122* 123* < > 130* < > 120* K -- 4.2 3.8 3.7 < > 4.7 < > 5.5* CHLOR -- 93* 88* 88* < > 93* < > 83* CO2 -- 24 23 22 < > 21* < > 20* BUN -- 77* 82* 93* < > 97* < > 104* CREAT -- 1.92* 1.93* 2.21* < > 2.59* < > 2.93* GLUC -- 268* 292* 253* < > 130* < > 216* CA -- 8.5 8.3* 8.8 < > 9.0 < > 9.6 MG -- -- -- -- -- 1.9 -- 2.0 < > = values in this interval not displayed. ASSESSMENT 60-year-old female with a several month history of urinary incontinence, progressive weakness and weight loss. Evaluation in the emergency department revealed bilateral hydronephrosis, distended bladder, ANATOLIY, cystic left renal mass, and urinary tract infection. Urinary catheter placed in the emergency department with post-obstructive diuresis and noted improvement in renal function. Renal fn improving, good diuresis. Cx showing proteus. ? PLAN -Maintain indwelling Chaves and trend creatinine over the next 1 to 2 days to ensure resolution of her renal insufficiency. -Once renal function has improved would consider MRI of the kidneys to evaluate the cystic renal mass on the left side while inpatient if possible. -Treat urinary tract infection based on culture results and sensitivities -Once renal function has improved and imaging of the kidney obtained can discharge patient with indwelling Chaves catheter. -We will arrange outpatient urologic follow-up to evaluate the bladder with cystoscopy and urodynamics. We will also discuss management of this cystic renal mass at that time. ? Wendy Bernal MD January 19, 2021 4:12 [facility] [id number] NoteHNO ID: [id number] Author: Shelby Lucero, PharmD Service: Pharmacy Author Type: Pharmacist Type: Plan of Care Filed: 01/19/2021 11:02 AM Note Text: PHARMACY MEDICATION REVIEW Patient Name: Aislinn Wheeler : 1960 The following medications were updated within the [facility]EE[facility]PLIT[facility] medication list: Medications ADDED to [facility] S[facility]IT[facility] medication list ? Albuterol HFA (replaced nebs) ? Levemir (replaced Lantus) Medications CHANGED on BEEF SPLITTER medication list ? Lyrica (added instructions) ? Symbicort (added instructions) Medications REMOVED from [facility] SPLIT[facility] medication list ? Diltiazem ? Cymbalta ? Metformin Additional comments: patient states she has been off some of her medications for a while . She also states that she has not been using any insulin in the last few days because her sugars have been low. When asked about the dose of Lantus, the patient stated oh it was just a couple units, nothing too big . Call placed to [facility] pharmacy to clarify prescribed dose of insulin, and the only prescription for insulin [facility] has on file is for Relion 70/30 inject 25 units BID. [facility] pharmacist states this was prescribed 02/19/2020 but never picked up. The below information represents the best possible medication history: Yes Medication history completed by: Pharmacist: Shelby Lucero PharmD Source of history: Patient: Reliability of source: Appears reliable, clearly identified: Medication name and Pharmacy records: [employer] data, [facility] pharmacy (phone call) Medication nonadherence identified: Unable to assess - it is clear the patient is noncompliant with her medications (admits she has been off her meds, no insulin fills at [facility] despite patient report), but at this time unable to assess reason for nonadherence. Reconciliation completed: Yes All BEEF SPLITTER medications addressed by LIP and Medication reconciliation completed by: Shelby Lucero PharmD Medications with dose or frequency intentionally adjusted at admission: ? Evant modified to 5/325 mg q6h PRN New medications at admission: ? Ceftriaxone Note patient ordered insulin regimen (Lantus 15 units QHS + sliding scale Humalog) and based on blood glucose readings, this is appropriate Patient interested in Bedside Delivery Services or using OP Pharmacy at discharge? Unable to assess Preferred outpatient pharmacy: [id number] [place] [address] [address] - [phone] Allergies: Latex Rash Comment:Added based on information entered during case entry, please review and add reactions, type, and severity as needed Prior to Admission medications as of 01/19/21 1051 Medication Sig Last Dose Taking insulin detemir U-100 (LEVEMIR FLEXTOUCH U-100 INSULIN) 100 unit/mL (3 mL) injection pen Inject subcutaneously daily at bedtime. Patient unsure of prescribed dose Yes albuterol HFA (PROVENTIL HFA, VENTOLIN HFA) 90 mcg/actuation inhaler Inhale 2 Puffs as instructed every 6 hours as needed for wheezing/shortness of breath. Yes insulin aspart U-100 (NOVOLOG) 100 unit/mL Inject subcutaneously three times daily before meals. Sliding scale Yes pregabalin (LYRICA) 150 mg capsule Take 150 mg by mouth three times daily. Yes HYDROcodone-Acetaminophen (NORCO) 7.5-325 mg per tablet Take 1 tablet by mouth three times daily as needed. Yes budesonide-formoterol (SYMBICORT) 80-4.5 mcg/actuation inhaler Inhale 2 Puffs as instructed twice daily. Shelby Lucero, PharmD 01/19/2021von [id number] NoteHNO ID: [id number] Author: Inna Hansen DO Service: Hospital Medicine Author Type: Physician Type: Progress Notes Filed: 01/19/2021 2:24 PM Note Text: DEPARTMENT OF HOSPITAL MEDICINE PROGRESS NOTE SERVICE DATE: 01/19/2021 SERVICE TIME: 9:30 AM Hospital Medicine/Primary Attending: Inna Hansen DO NIGHT AND WEEKEND COVERAGE: DELMY COVERAGE: Days: [phone], please contact via BirdpostsaAugust Nights: [phone], please page CC Hospitalist Night coverage pager [phone] Subjective INTERVAL HPI: no overnight events. Denies complaints. Current Facility-Administered Medications Medication Dose Route Frequency - albuterol 2.5 mg /3 mL (0.083 %) 2.5 mg (PROVENTIL) 2.5 mg INHALATION q 4 H PRN - fluticasone-vilanterol 100-25 mcg/dose 1 Inhalation (BREO ELLIPTA) 1 Inhalation INHALATION DAILY - dextrose 40 % 15 g 15 g ORAL PRN Or - glucagon 1 mg injection 1 mg INTRAMUSCULAR PRN Or - dextrose 50% in water 25 mL syringe 12.5 g INTRAVENOUS PRN - cefTRIAXone 1 g in D5W 100 mL MB+ (ROCEPHIN) 1 g INTRAVENOUS q 24 H - insulin lispro injection (rapid acting) (HumaLOG) SUBCUTANEOUS w MEALS - insulin glargine 15 Units pen (long acting) (LANTUS SOLOSTAR, BASAGLAR KWIKPEN) 15 Units SUBCUTANEOUS AT BEDTIME - HYDROcodone 5 mg - acetaminophen 325 mg tablet (NORCO) 1 tablet ORAL q 6 H PRN - pregabalin 150 mg cap(s) (LYRICA) 150 mg ORAL TID Objective PHYSICAL EXAM: BP 112/80 Pulse 95 Temp (Src) 99.3 (Oral) Resp 18 Ht 5' 0 (1.52m) Wt 97 lb 3.6 oz (44.1kg) SpO2 95% BMI 18.99 kg/(m2). O2 Therapy: Room Air Physical Exam Performed Gen: NAD, AANDO HEENT: MMM Heart: RRR Lungs: CTAB. No accessory muscle use Abd: soft, NT, ND. NABS. No masses Ext: no edema Skin: no rashes Neuro: Face symmetric. Moves all four extremities without gross deficits. : Chaves in place; dark yellow urine in collection bag Lines, Drains, and Airways Line Peripheral 01/17/21 1650 Short Right Antecubital 22 Gauge 1 day Peripheral 01/17/21 1700 Short Left Arm 22 Gauge 1 day Drain Indwelling Urinary Catheter 01/17/21 Assessment Chaves 2 days Reviewed Chaves and needs to be continued: REASONS: Urinary retention or obstruction DATA: Diagnostic tests reviewed for today's visit: Most recent labs Most recent imaging Assessment/Plan Problem List Sepsis ([facility]) POA: Yes Pyelonephritis POA: Yes Hydronephrosis due to obstruction of ureter POA: Yes Acute cystitis without hematuria POA: Unknown Acute bilateral obstructive uropathy POA: Yes Hyponatremia POA: Yes ANATOLIY (acute kidney injury) ([facility]) POA: Yes Hyperkalemia POA: Yes Principal Problem: Sepsis ([facility]) Pyelonephritis Complicated UTI Hydronephrosis due to obstruction of ureter CT reviewed. Concern for bladder outlet obstruction, suspected mass. Chaves placed Leukocytosis improving. Afebrile. HDS. Sepsis resolved. Continue ceftriaxone Urine culture: GNB Urology consult appreciated. Plan for discharge with Chaves and outpatient cystoscopy. Left renal cystic lesion MRI kidneys after ANATOLIY resolves Acute bilateral obstructive uropathy ANATOLIY Cr 2.93 on admission. Appears acute. Improving with IV fluids, which have now been held for sodium considerations (see below). Continue to follow Nephrology consult appreciated. Hyponatremia Sodium 120 on admission. Up to 130 overnight. Hold IV fluids for now, given rapid improvement. 128 this morning. Nephrology consult appreciated. Monitor closely. Hyperkalemia resolved Medication and Non-Pharmacologic VTE Prophylaxis/Anticoagulants 01/17/212214 pneumatic compression stockings ([place]) 01/17/212214 activity - mobilize patient ([place]) VTE Prophylaxis: VTE prophylaxis appropriate Disposition: Home Discussed with granddaughter Chloe by phone with patient's permission. Inna Hansen DO January 19, 2021 9:33 [id number] History of Past illness Narrative* Problem Noted Date Resolved Date Acute cystitis without hematuria 01/18/2021 01/21/2021 Pyelonephritis 01/17/2021 01/21/2021 Sepsis 01/17/2021 01/21/2021 Hyponatremia 01/17/2021 01/21/2021 Hyperkalemia 01/17/2021 01/21/2021 Hydronephrosis due to obstruction of ureter 12/2101/21/2021 documented as of this encounter (statuses as of 01/27/2021) [facility]05-31-2021 History of Past illness Narrative* Problem Noted Date Diagnosed Date Resolved Date Acute cystitis without hematuria 01/18/2021 01/21/2021 Pyelonephritis 01/17/2021 01/21/2021 Sepsis 01/17/2021 01/21/2021 Hyponatremia 01/17/2021 01/21/2021 Hyperkalemia 01/17/2021 01/21/2021 Hydronephrosis due to obstruction of ureter 01/17/2021 01/21/2021 documented as of this encounter (statuses as of 06/09/2023) [facility]21 History of Past illness Narrative* Problem Noted Date Diagnosed Date Resolved Date Acute cystitis without hematuria 01/18/2021 01/21/2021 Pyelonephritis 01/17/2021 01/21/2021 Sepsis 01/17/2021 01/21/2021 Hyponatremia 01/17/2021 01/21/2021 Hyperkalemia 01/17/2021 01/21/2021 Hydronephrosis due to obstruction of ureter 01/17/2021 01/21/2021 documented as of this encounter (statuses as of 06/15/2023) [facility] History of Past illness Narrative* Problem Noted Date Diagnosed Date Resolved Date Acute cystitis without hematuria 01/18/2021 01/21/2021 Pyelonephritis 01/17/2021 01/21/2021 Sepsis 01/17/2021 01/21/2021 Hyponatremia 01/17/2021 01/21/2021 Hyperkalemia 01/17/2021 01/21/2021 Hydronephrosis due to obstruction of ureter 01/17/2021 01/21/2021 documented as of this encounter (statuses as of 06/19/2023) [facility] History of Past illness Narrative* Problem Noted Date Diagnosed Date Resolved Date Acute cystitis without hematuria 01/18/2021 01/21/2021 Pyelonephritis 01/17/2021 01/21/2021 Sepsis 01/17/2021 01/21/2021 Hyponatremia 01/17/2021 01/21/2021 Hyperkalemia 01/17/2021 01/21/2021 Hydronephrosis due to obstruction of ureter 01/17/2021 01/21/2021 documented as of this encounter (statuses as of 06/23/2023) [facility] History of Past illness Narrative* Problem Noted Date Diagnosed Date Resolved Date Acute cystitis without hematuria 01/18/2021 01/21/2021 Pyelonephritis 01/17/2021 01/21/2021 Sepsis 01/17/2021 01/21/2021 Hyponatremia 01/17/2021 01/21/2021 Hyperkalemia 01/17/2021 01/21/2021 Hydronephrosis due to obstruction of ureter 01/17/2021 01/21/2021 documented as of this encounter (statuses as of 07/05/2023) [facility]21 NoteHNO ID: [id number] Author: Inna Hansen DO Service: Hospital Medicine Author Type: Physician Type: Progress Notes Filed: 01/18/2021 4:10 PM Note Text: DEPARTMENT OF HOSPITAL MEDICINE PROGRESS NOTE SERVICE DATE: 01/18/2021 SERVICE TIME: 8:57 AM Hospital Medicine/Primary Attending: Inna Hansen DO NIGHT AND WEEKEND COVERAGE: DELMY COVERAGE: Days: [phone], please contact via Birdpostsage Nights: [phone], please page CC Hospitalist Night coverage pager [phone] Subjective INTERVAL HPI: no overnight events. Denies pain. Current Facility-Administered Medications Medication Dose Route Frequency - pregabalin 150 mg cap(s) (LYRICA) 150 mg ORAL DAILY - albuterol 2.5 mg /3 mL (0.083 %) 2.5 mg (PROVENTIL) 2.5 mg INHALATION q 4 H PRN - fluticasone-vilanterol 100-25 mcg/dose 1 Inhalation (BREO ELLIPTA) 1 Inhalation INHALATION DAILY - dextrose 40 % 15 g 15 g ORAL PRN Or - glucagon 1 mg injection 1 mg INTRAMUSCULAR PRN Or - dextrose 50% in water 25 mL syringe 12.5 g INTRAVENOUS PRN - NaCl 0.9% iv infusion 75 mL/hr INTRAVENOUS CONTINUOUS - cefTRIAXone 1 g in D5W 100 mL MB+ (ROCEPHIN) 1 g INTRAVENOUS q 24 H - insulin lispro injection (rapid acting) (HumaLOG) SUBCUTANEOUS w MEALS - insulin glargine 15 Units pen (long acting) (LANTUS SOLOSTAR, BASAGLAR KWIKPEN) 15 Units SUBCUTANEOUS AT BEDTIME - HYDROcodone 5 mg - acetaminophen 325 mg tablet (NORCO) 1 tablet ORAL q 6 H PRN Objective PHYSICAL EXAM: BP 107/70 Pulse 88 Temp (Src) 97.9 (Oral) Resp 19 Ht 5' 0 (1.52m) Wt 100 lb 5 oz (45.5kg) SpO2 99% BMI 19.59 kg/(m2). O2 Therapy: Room Air Physical Exam Performed Gen: NAD, AANDO HEENT: MMM Heart: RRR Lungs: CTAB. No accessory muscle use Abd: soft, NT, ND. NABS. No masses Ext: no edema Skin: no rashes Neuro: Face symmetric. Moves all four extremities without gross deficits. : Chaves in place; red urine in collection bag Lines, Drains, and Airways Line Peripheral 01/17/21 1650 Short Right Antecubital 22 Gauge <1 day Peripheral 01/17/21 1700 Short Left Arm 22 Gauge <1 day Drain Indwelling Urinary Catheter 01/17/21 Assessment Chaves 1 day Reviewed Chaves and needs to be continued: REASONS: Urinary retention or obstruction DATA: Diagnostic tests reviewed for today's visit: Most recent labs Most recent imaging Assessment/Plan Problem List Sepsis ([facility]) POA: Yes Pyelonephritis POA: Yes Hydronephrosis due to obstruction of ureter POA: Yes Acute cystitis without hematuria POA: Unknown Acute bilateral obstructive uropathy POA: Yes Hyponatremia POA: Yes ANATOLIY (acute kidney injury) ([facility]) POA: Yes Hyperkalemia POA: Yes Principal Problem: Sepsis ([facility]) Pyelonephritis Complicated UTI Hydronephrosis due to obstruction of ureter CT reviewed. Concern for bladder outlet obstruction, suspected mass. Chaves placed Leukocytosis persists. Afebrile. HDS. Continue ceftriaxone Await urine culture results Urology consult appreciated. Plan for discharge with Chaves and outpatient cystoscopy. Left renal cystic lesion MRI kidneys after ANATOLIY resolves Acute bilateral obstructive uropathy ANATOLIY Cr 2.93 on admission. Appears acute. Improving with IV fluids, which have now been held for sodium considerations (see below). Continue to follow Nephrology consult appreciated. Hyponatremia Sodium 120 on admission. Up to 130 overnight. Hold IV fluids for now, given rapid improvement. Nephrology consult appreciated. Monitor closely. Hyperkalemia resolved Medication and Non-Pharmacologic VTE Prophylaxis/Anticoagulants 01/17/212214 pneumatic compression stockings ([place], [place]) 01/17/212214 activity - mobilize patient ([place]) VTE Prophylaxis: VTE prophylaxis appropriate Disposition: Home SIGNATURE: Inna Hansen DO PATIENT NAME: Aislinn Wheeler DATE: January 18, 2021 TIME: 8:57 [id number] NoteHNO ID: [id number] Author: Taurus Ballard MD Service: Urology Author Type: Physician Type: Plan of Care Filed: 01/17/2021 9:10 PM Note Text: Full consult to follow Patient's chart reviewed and images of her CT scan abdomen pelvis personally viewed. 60-year-old female with urinary incontinence and weakness for several months. Work-up is consistent with urinary tract infection as well as bladder outlet obstruction causing bilateral hydroureteronephrosis and ANATOLIY. Recommend Chaves catheter and IV antibiotics. Can tailor antibiotics based on urine culture and sensitivities. Recommend trending creatinine with the urinary catheter in place to determine if renal function improves. Can consider repeating an ultrasound of the kidneys in 48 hours to determine if hydronephrosis has improved as well. We will need urologic evaluation to determine cause of her urinary retention. Taurus Ballard, [facility] ShawRfcaugzn31-14-9025 NoteHNO ID: [id number] Author: STEPHEN Nichole) Service: Radiology Author Type: Bedspread Inspector Type: Progress Notes Filed: 01/17/2021 8:04 PM Note Text: Radiology Service Progress Note PATIENT NAME: Aislinn Wheeler DATE OF SERVICE: January 17, 2021 TIME: 8:03 PM PATIENT IDENTITY VERIFICATION COMPLETED USING TWO (2) IDENTIFIERS: Name and Date of confirmed by patient verbally and Name and Date of confirmed by identification band. FALL SCREENING: Has the patient had 2 falls in the last year or 1 fall with injury or currently using an Ambulatory Assistive Device (Walker, Cane, Wheelchair, Crutches, etc.)? Emergency Room Patient: Screened in ED PATIENT GENDER DATA: Female. status: : No status: NO. PATIENT RELEVANT IMPLANT DATA REVIEWED: Not Applicable RADIOLOGY DEPARTMENT: CT; Exam(s) Completed: Abdomen/Pelvis and Chest PERIPHERAL IV DATA: Not applicable SIGNED BY: RT Dayanara(Raquel) January 17, 2021 8:03 [facility] [id number] NoteHNO ID: [id number] Author: STEPHEN Nichole) Service: Radiology Author Type: Bedspread Inspector Type: Progress Notes Filed: 01/17/2021 5:30 PM Note Text: Radiology Service Progress Note PATIENT NAME: Aislinn Wheeler DATE OF SERVICE: January 17, 2021 TIME: 5:30 PM PATIENT IDENTITY VERIFICATION COMPLETED USING TWO (2) IDENTIFIERS: Name and Date of confirmed by patient verbally and Name and Date of confirmed by identification band. FALL SCREENING: Has the patient had 2 falls in the last year or 1 fall with injury or currently using an Ambulatory Assistive Device (Walker, Cane, Wheelchair, Crutches, etc.)? Emergency Room Patient: Screened in ED PATIENT GENDER DATA: Female. status: : No status: NO. PATIENT RELEVANT IMPLANT DATA REVIEWED: Not Applicable RADIOLOGY DEPARTMENT: CT; Exam(s) Completed: Spine PERIPHERAL IV DATA: Not applicable SIGNED BY: RT Dayanara(Raquel) January 17, 2021 5:30 [facility] [id number] NoteHNO ID: [id number] Author: Guy Rogers RT(R) Service: Radiology Author Type: Bedspread Inspector Type: Progress Notes Filed: 01/17/2021 4:23 PM Note Text: Radiology Service Progress Note PATIENT NAME: Aislinn Wheeler DATE OF SERVICE: January 17, 2021 TIME: 4:22 PM PATIENT IDENTITY VERIFICATION COMPLETED USING TWO (2) IDENTIFIERS: Name and Date of confirmed by patient verbally and Name and Date of confirmed by identification band. FALL SCREENING: Has the patient had 2 falls in the last year or 1 fall with injury or currently using an Ambulatory Assistive Device (Walker, Cane, Wheelchair, Crutches, etc.)? Emergency Room Patient: Screened in ED PATIENT GENDER DATA: Female. status: : No status: NO. PATIENT RELEVANT IMPLANT DATA REVIEWED: Yes RADIOLOGY DEPARTMENT: General X-ray: Exam(s) Completed: Chest X-Ray PERIPHERAL IV DATA: Not applicable SIGNED BY: Lila Workman RT (R) January 17, 2021 4:22 [facility] [id number] NoteHNO ID: [id number] Author: AHSAN Barlow Service: ? Author Type: Clinical Bedspread Inspector Type: Progress Notes Filed: 01/17/2021 4:19 PM Note Text: Radiology Service Progress Note PATIENT NAME: Aislinn Wheeler DATE OF SERVICE: January 17, 2021 TIME: 4:19 PM PATIENT IDENTITY VERIFICATION COMPLETED USING TWO (2) IDENTIFIERS: Name and Date of confirmed by patient verbally and Name and Date of confirmed by identification band. FALL SCREENING: Has the patient had 2 falls in the last year or 1 fall with injury or currently using an Ambulatory Assistive Device (Walker, Cane, Wheelchair, Crutches, etc.)? Emergency Room Patient: Screened in ED PATIENT GENDER DATA: Female. status: : No status: NO. PATIENT RELEVANT IMPLANT DATA REVIEWED: Not Applicable RADIOLOGY DEPARTMENT: CT; Exam(s) Completed: Brain and Spine PERIPHERAL IV DATA: Not applicable SIGNED BY: AHSAN Dozier January 17, 2021 4:19 [facility] + [facility] note Future Appointments Appointment Date:12/13/2022 03:00:00 PM Scheduled Provider:HEIDY ARNOLD PA-C Location:[facility] Appointment Type:URO Office Visit [facility] evaluation + Plan note Future Appointments Appointment Date:10/26/2022 10:00:00 AM Scheduled Provider:Lisa Porras MD Location:[facility] Appointment Type:URO Office Visit Appointment Date:12/13/2022 03:00:00 PM Scheduled Provider:HEIDY ARNOLD PA-C Location:[facility] Appointment Type:URO Office Visit [facility] evaluation + Plan note Future Appointments Appointment Date:05/03/2023 10:00:00 AM Scheduled Provider:Lisa Porras MD Location:[facility] Appointment Type:URO Office Visit [facility] evaluation + Plan note Future Appointments Appointment Date:05/03/2023 10:00:00 AM Scheduled Provider:Lisa Porras MD Location:[facility] Appointment Type:URO Office Visit Diagnostic Tests Pending * [facility] Appointment Date:05/15/2023 12:30:00 PM Scheduled Provider: Location:[facility] Appointment Type:Urology CALL PAT FT Appointment Date:05/22/2023 10:30:00 AM Scheduled Provider: Location:[facility] Appointment Type:Urology FT Diagnostic Tests Pending * [facility] Appointment Date:06/28/2023 10:45:00 AM Scheduled Provider:Lisa Porras MD Location:[facility] Appointment Date:06/28/2023 10:45:00 AM Scheduled Provider:Lisa Porras MD Location:[facility] Appointment Type:URO Office Visit Diagnostic Tests Pending * [facility] Appointment Date:07/18/2023 11:20:00 AM Scheduled Provider:HEIDY ARNOLD PA-C Location:[facility] Appointment Type:URO Office Visit [facility] evaluation noteNo [place]ilburning stickK Other Evaluation note* Diagnosis Kidney cyst, acquired- Primary Acquired cyst of kidney documented in this encounter [facility] general Narrative - Reported* Type Description Date Medical History TYPE II DIABETIC Medical History HYPERTENSION Medical History HYPERLIPIDEMIA Medical History ASTHMA Medical History DEGENERATIVE DISC DISEASE Medical History LUPUS Medical History MITARAL VALVE PROLAPSE Medical History CHRONIC KIDNEY DISEASE STAGE 3 Medical History DYSURIA Medical History GLUCOSURIA Medical History HEART FAILURE Medical History HYPERKALEMIA Medical History 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 Medical History PERSONAL HISTORY OF TRANSLIENT I SCHEMIC ATTACK Medical History RENAL CYST Medical History URETERIC STONE Medical History URINARY TRACT INFECTION Medical History URINARY LEAKAGE Surgical History ANKLE Surgical History ELBOW Surgical History GALLBLADDER Surgical History HYSTERECTOMY Surgical History KNEE SURGERY Surgical History NECK PROCEDURES Surgical History RIGHT HAND PROCEDURES Surgical History SHOULDER SURGERY Surgical History BILATERAL CATARACT SURGERY Surgical History LEFT FOOT GREAT TOE AMPUTATION Hospitalization History SEE ABOVE SURGERY Hospitalization History DKA 2014 Hospitalization History [facility] SEPSIS 05/2022 [employer] Other [facility] general Narrative - Reported* Type Description Date Medical History TYPE II DIABETIC Medical History HYPERTENSION Medical History HYPERLIPIDEMIA Medical History ASTHMA Medical History DEGENERATIVE DISC DISEASE Medical History LUPUS Medical History MITARAL VALVE PROLAPSE Medical History CHRONIC KIDNEY DISEASE STAGE 3 Medical History DYSURIA Medical History GLUCOSURIA Medical History HEART FAILURE Medical History HYPERKALEMIA Medical History 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 Medical History PERSONAL HISTORY OF TRANSLIENT I SCHEMIC ATTACK Medical History RENAL CYST Medical History URETERIC STONE Medical History URINARY TRACT INFECTION Medical History URINARY LEAKAGE Surgical History ANKLE Surgical History ELBOW Surgical History GALLBLADDER Surgical History HYSTERECTOMY Surgical History KNEE SURGERY Surgical History NECK PROCEDURES Surgical History RIGHT HAND PROCEDURES Surgical History SHOULDER SURGERY Surgical History BILATERAL CATARACT SURGERY Surgical History LEFT FOOT GREAT TOE AMPUTATION Surgical History BONE FRACTUES Surgical History OPEN AREA ON LEFT FOOT Hospitalization History SEE ABOVE SURGERY Hospitalization History DKA 2014 Hospitalization History [facility] SEPSIS 05/2022 [employer] Other Hospital course Narrative No data available for this section [facility] Hospital Discharge instructions No data available for this section [facility] progress note No data available for this section [facility] reason for referral (narrative)* Diagnostic Procedure Only (Routine) - Pending Review Specialty Diagnoses / Procedures Referred By Danny hensley Referred To Contact [facility] Diagnoses Kidney cyst, acquired Procedures US KIDNEY/BLADDER US RETROPERITONEAL REAL TIME W/IMAGE COMPLETE Taurus Ballard MD [address] [place] [address] [place] [address] Referral ID Status Reason Start Date Expiration Date Visits Requested Visits Authorized [id number] Pending Review Auto-Generat ed Referral 10/05/2023 08/03/2024 1 1 [facility] for visit NarrativeReferral Latosha Olmstead, New pt Type 2 IDDM apt 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, 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, [employer] Other Summary Purpose Family History No Family History Records FoundNo Family History Records Found No data available for this section No data available for this section No data available for this section No Family History Records FoundNo Family History Records FoundNo Family History Records Found No data available for this section No Family History Records Found Advance Directives No Advanced Directives Records FoundDocuments on File Type Date Recorded 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 DATE CREATED AUTHOR AUTHOR'S ORGANIZ ATION 01/04/2023 [facility] DATE CREATED AUTHOR AUTHOR'S ORGANIZ ATION 06/10/2023 [facility] DATE CREATED AUTHOR AUTHOR'S ORGANIZ ATION 06/19/2023 [facility] DATE CREATED AUTHOR AUTHOR'S ORGANIZ ATION 06/28/2023 [facility] DATE CREATED AUTHOR AUTHOR'S ORGANIZ ATION 08/07/2023 Nik Medeiros [facility] Source Comments (unrecognize d section and content) In the event this informatio n is protected by the Federal Confidentiality of Alcohol and Drug Abuse Patient Records regulations: The Federal rules restrict any use of the information to criminally investigate or prosecute any alcohol or drug abuse patient.[facility] the event this information is protected by the Federal Confidentiality of Alcohol and Drug Abuse Patient Records regulations: The Federal rules restrict any use of the information to criminally investigate or prosecute any alcohol or drug abuse patient.[facility] the event this information is protected by the Federal Confidentiality of Alcohol and Drug Abuse Patient Records regulations: The Federal rules restrict any use of the information to criminally investigate or prosecute any alcohol or drug abuse patient.[facility] the event this information is protected by the Federal Confidentiality of Alcohol and Drug Abuse Patient Records regulations: The Federal rules restrict any use of the information to criminally investigate or prosecute any alcohol or drug abuse patient.[facility] the event this information is protected by the Federal Confidentiality of Alcohol and Drug Abuse Patient Records regulations: The Federal rules restrict any use of the information to criminally investigate or prosecute any alcohol or drug abuse patient.[facility] the event this information is protected by the Federal Confidentiality of Alcohol and Drug Abuse Patient Records regulations: The Federal rules restrict any use of the information to criminally investigate or prosecute any alcohol or drug abuse patient.[facility] Reason for Visit (unrecogniz ed section and content) Reason Comments Appointment Reason Comments Follow Up Reason Comments Pre-Op Teaching Reason Comments Surgical Followup Patient Care team informatio n (unrecognized section and content) Ssrs Developer Relationship Specialty Start Date End Date Latosha Olmstead [address] [place] [address] PCP - General 05/17/23 Lisa Porras MD [address] [place] [id number] Referring Urology 05/11/23 Ssrs Developer Relationship Specialty Start Date End Date Latosha Olmstead [place] [address] PCP - General 05/17/23 Lisa Porras MD [address] [place] [address] Referring Urology 05/11/23 Ssrs Developer Relationship Specialty Start Date End Date Latosha Olmstead [place] [address] PCP - General 05/17/23 Lisa Porras MD [address] [place] [address] Referring Urology 05/11/23 Ssrs Developer Relationship Specialty Start Date End Date Latosha Olmstead [place] [address] PCP - General 05/17/23 Lisa Porras MD [address] [place] [address] Referring Urology 05/11/23 FOR RECORDS PERTAINING TO PATIENTS WHO ARE OR HAVE BEEN ENROLLED IN A CHEMICAL DEPENDENCY/SUBSTANCEABUSE PROGRAM, SOME INFORMATION MAY BE OMITTED. This clinical summary was aggregated from multiple sources. Caution should be exercised in using it in the provision of clinical care. This summary normalizes information from multiple sources, and as a consequence, information in this document may materially change the coding, format and clinical context of patient data. In addition, data may be omitted in some cases. CLINICAL DECISIONS SHOULD BE BASED ON THE PRIMARY CLINICAL RECORDS. [facility] [employer] [facility]. provides no warranty or guarantee of the accuracy or completeness of information in this document.
== END 2023-08-29 10:01 | disposition home or self-care (01) ==
LOC: WC 08-30 09:12
PROVIDERS: PCP Nurse Practitioner; Visit Provider Podiatrist Foot & Ankle Surgery
DX: E11.622 Type 2 diabetes mellitus with other skin ulcer (principal); L97.822 Non-pressure chronic ulcer of other part of left lower leg with fat layer exposed
CPT/HCPCS: 11042

== ENCOUNTER 2023-10-02 15:32 | Outpatient (OUT) | payer MEDICARE, SELFPAY ==
--- NOTE | 2023-10-02 | XR_ITS ---
The [address] [address] Patient Name: AISLINN CARNES MRN: [id number] date: 1960 Sex: F Assigned Patient Location: Current Patient Location: Accession/Order Number: [id number] Exam Date: 10/02/2023 02:08 Report Date: 10/02/2023 14:34 At the request of: RAMON HUNTLEY Procedure: XR foot LT min 3V STUDY: XR foot LT min 3V, [id number] HISTORY: LEFT FOOT PAIN COMPARISON: Left foot x-rays 08/07/2023 and 05/12/2023. FINDINGS: No acute fracture, dislocation, or suspicious osseous lesion. 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 Healed fractures of the distal second through fifth metatarsals. Additional partially fused chronic fractures of the proximal diaphyses of the second through fourth metatarsals, similar. Healed fracture of the second proximal phalanx. Os peroneum and accessory navicular are present. Medial malleolar fusion screws are present. Moderate Achilles insertional enthesopathy. XR/XR foot LT min 3V IMPRESSION: In the absence of localizing information for the patient's foot pain, no new or worsening osseous abnormality. Electronically authenticated by: KYLER PRUITT Date: 10/02/2023 14:34
== END 2023-10-02 15:33 | disposition home or self-care (01) ==
LOC: WC 15:33
PROVIDERS: PCP Nurse Practitioner; Visit Provider Podiatrist Foot & Ankle Surgery
DX: M79.672 Pain in left foot (principal); E11.622 Type 2 diabetes mellitus with other skin ulcer; L97.822 Non-pressure chronic ulcer of other part of left lower leg with fat layer exposed
CPT/HCPCS: 29445; 73630; A6213

== ENCOUNTER 2023-10-13 09:37 | Outpatient (OUT) | payer MEDICARE, SELFPAY ==
--- OUTSIDE RECORDS SUMMARY | 2023-10-13 09:47 | XMS_ITS | CCD ---
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 Role Phone Pcp, No Primary Care Provider UnavailLATOSHA Harmon Primary Care Physician [phone] Eli Sprague Unavailable MARIBEL SOUND PERSON LATOSHA Attending Unavailable AICHHOLZ, SOUND PERSON LATOSHA Consulting Unavailable AICHHOLZ, SOUND PERSON LATOSHA Admitting Unavailable AICHHOLZ, SOUND PERSON LATOSHA Primary Care Unavailable RAMON HUNTLEY Attending Unavailable RAMON HUNTLEY Admitting Unavailable REQUEST, DR DANNIE LISTED Primary Care Unavaila bartolome DELVALLE, DR THANH García Consulting Unavailable RAMON HUNTLEY Consulting Unavailable AICHHOLZ, SOUND PERSON LATOSHA Primary Care Unavailable RAMON HUNTLEY Admitting Unavailable RAMON HUNTLEY Attending Unavailable AICHHOLZ, SOUND PERSON LATOSHA Primary Care Unavailable CLARIBEL, AMADO H Consulting Unavailable FAWWAD, AMADO H Admitting Unavailable FAWWAD, AMADO H Attending Unavailable AICHHOLZ, SOUND PERSON LATOSHA Consulting Unavailable AICHHOLZ, SOUND PERSON LATOSHA Admitting Unavailable AICHHOLZ, SOUND PERSON LATOSHA Attending Unavailable AICHHOLZ, SOUND PERSON LATOSHA Primary Care Unavailable RAMON HUNTLEY Attending Unavailable AICHHOLZ, SOUND PERSON LATOSHA Primary Care Unavailable RAMON HUNTLEY Admitting Unavailable TIN, DR NUBIA Carlos Consulting Unavailable RAMON HUNTLEY Consulting Unavailable AICHHOLZ, SOUND PERSON LATOSHA Primary Care Unavailable TIN, DR NUBIA Carlos Consulting Unavailable DIANA SEGURA Admitting Unavailable DIANA SEGURA Attending Unavailable DIANA SEGURA Consulting Unavailable AICHHOLZ, SOUND PERSON LATOSHA Primary Care Unavailable AICHHOLZ, SOUND PERSON LATOSHA Attending Unavailable AICHHOLZ, SOUND PERSON LATOSHA Admitting Unavailable WEST, DR NUBIA Carlos Consulting Unavailable AICHHOLZ, SOUND PERSON LATOSHA Consulting Unavailable AICHHOLZ, SOUND PERSON LATOSHA Primary Care Unavailable COLTON, DIANA Admitting Unavailable COLTON, DIANA Attending Unavailable MIGEL SEGURALY Consulting Unavailable AICHHOLZ, SOUND PERSON LATOSHA Primary Care Unavailable AICHHOLZ, SOUND PERSON LATOSHA Attending Unavailable AICHHOLZ, SOUND PERSON LATOSHA Consulting Unavailable AICHHOLZ, SOUND PERSON LATOSHA Admitting Unavailable AICHHOLZ, SOUND PERSON LATOSHA Primary Care Unavailable WEST, DR NUBIA Carlos Consulting Unavailable COLTON, DIANA Admitting Unavailable COLTON, DIANA Attending Unavailable COLTON, DIANA Consulting Unavailable AICHHOLZ, SOUND PERSON LATOSHA Primary Care Unavailable ADELIA, DR THANH García Consulting Unavailable HIGHLANDER, PETER D Attending Unavailable HIGHLANDER, PETER D Admitting Unavailable HIGHLANDER, PETER D Consulting Unavailable AICHHOLZ, SOUND PERSON LATOSHA Primary Care Unavailable FOSTER ., DR PAGE Admitting Unavailable FOSTER ., DR PAGE Attending Unavailable FOSTER ., DR PAGE Consulting Unavailable ZIEBER, DR THANH García Consulting Unavailable HIGHLANDER, PETER D Admitting Unavailable AICHHOLZ, SOUND PERSON LATOSHA Primary Care Unavailable ADELIA, DR THANH García Consulting Unavailable HIGHLANDER, PETER D Attending Unavailable HIGHLANDER, PETER D Consulting Unavailable AICHHOLZ, SOUND PERSON LATOSHA Primary Care Unavailable AICHHOLZ, SOUND PERSON LATOSHA Attending Unavailable AICHHOLZ, SOUND PERSON LATOSHA Consulting Unavailable AICHHOLZ, SOUND PERSON LATOSHA Admitting Unavailable ADELIA, DR THANH García Consulting Unavailable AICHHOLZ, SOUND PERSON LATOSHA Primary Care Unavailable ADELIA, DR THANH García Consulting Unavailable HIGHLANDER, PETER D Attending Unavailable HIGHLANDER, PETER D Admitting Unavailable HIGHLANDER, PETER D Consulting Unavailable AICHHOLZ, SOUND PERSON LATOSHA Primary Care Unavailable ADELIA, DR THANH García Consulting Unavailable COLTON, DIANA Admitting Unavailable COLTON, DIANA Attending Unavailable COLTON, DIANA Consulting Unavailable WANDY ., RAQUEL Admitting Unavailable WANDY ., RAQUEL Attending Unavailable KASIE CANDELARIO Consulting Unavailable GIDEON, DR PANDEY LISTED Primary Care Unavaila bartolome SABA ., RAQUEL Consulting Unavailable LYLE MATIAS Consulting Unavailable AICHHOLZ, SOUND PERSON LATOSHA Primary Care Unavailable EARL ., DR CARMONA Admitting Unavailable HAY ., DR CARMONA Attending Unavailable HAY ., DR CARMONA Consulting Unavailable TONY LUO Consulting Unavailable KLIPPNUBIA PAEZ Consulting Unavailable AICHHOLZ, [facility] LATOSHA Primary Care Unavailable HIGHLANDER, PETER D Admitting Unavailable HIGHLANDER, RAMON D Attending Unavailable HIGHLANDER, PETER D Admitting Unavailable AICHHOLZ, [facility] LATOSHA Primary Care Unavailable HIGHLANDER, PETER D Attending Unavailable HIGHLANDER, PETER D Admitting Unavailable AICHHOLZ, [facility] Primary Care Unavailable ZIEBER, DR THANH García Consulting Unavailable HIGHLANDER, RAMON D Attending Unavailable HIGHLANDER, RAMON D Consulting Unavailable HIGHLANDER, PETER D Admitting Unavailable AICHHOLZ, SOUND PERSON LATOSHA Primary Care Unavailable HIGHLANDER, RAMON D Attending Unavailable HIGHLANDER, RAMON D Attending Unavailable HIGHLANDER, PETER D Admitting Unavailable REQUEST, DR NONE LISTED Primary Care Unavaila ble HIGHLANDER, PETER D Admitting Unavailable AICHHOLZ, SOUND PERSON LATOSHA Primary Care Unavailable HIGHLANDER, RAMON D Attending Unavailable HIGHLANDER, PETER D Admitting Unavailable AICHHOLZ, [facility] Primary Care Unavailable HIGHLANDER, RAMON D Attending Unavailable HIGHLANDER, RAMON D Attending Unavailable HIGHLANDER, PETER D Admitting Unavailable REQUEST, DR NONE LISTED Primary Care Unavaila bartolome PALMA, DR NELL Salazar Attending Unavailabl e ADELIA, DR THANH García Consulting Unavailable REQUEST, NONE LISTED Primary Care Unavaila bartolome PALMA, DR NELL Salazar Admitting Unavailabl e GRECHNY ., GIANNI PETIT Consulting Unavailabl e VIEIRA ., DR NENO Rodriguez Consulting Unavailable VIEIRA ., DR NENO Rodriguez Admitting Unavailable VIEIRA ., DR NENO Rodriguez Attending Unavailable REQUEST, DR NONE LISTED Primary Care Unavaila ble GRECHNY ., GIANNI PETIT Consulting Unavailabl e HIGHLANDER, PETER D Procedure Practitioner Unava ilable TONY ULO Consulting Unavailable HIGHLANDER, RAMON Tillman Consulting Unavailable KWADWO MICHAELS Consulting Unavailable NUBIA BATEMAN Consulting Unavailable SCHNEBARTOLOME, GURU Consulting Unavailable FRED, LANDON Consulting Unavailable ROSELIA ., LISA JIMENEZ Consulting Unavailable GEMBUS, ROCAEL Consulting Unavailable SMALLWOOD, REJI FLORES Consulting Unavailable AICHHOLZ, [facility] Primary Care Unavailable WEST, DR NUBIA Carlos Consulting Unavailable DIANA SEGURA Admitting Unavailable DIANA SEGURA Attending Unavailable COLTONNENODIANA Consulting Unavailable HIGHLANDER, PETER D Admitting Unavailable AICHHOLZ, SOUND PERSON LATOSHA Primary Care Unavailable ZIEBER, DR THANH García Consulting Unavailable HIGHLANDER, RAMON Tillman Attending Unavailable HIGHLANDER, PETER D Consulting Unavailable Fitayden, Brigette Unavailable Sara Augustine Unavailable Lisa Porras MD Unavailable Latosha Olmstead Primary Care Provider TAURUS BALLARD Referring Unavailable TAURUS BALLARD Referring Unavailable Aichholz ASHVINLatosha CRAIG Primary Care Provider Lisa Porras MIrina Referring Unavailable Lue, Lisa MIrina Admitting Unavailable Lue, Lisa MIrina Attending Unavailable CATALINA, HEIDY E Attending Unavailable CATALINA, HEIDY E Admitting Unavailable CATALINA, HEIDY E Attending Unavailable CATALINA, HEIDY E Admitting Unavailable CATALINA, HEIDY E Attending Unavailable CATALINA, HEIDY E Admitting Unavailable CATALINA, HEIDY E Attending Unavailable AICHHOLLATOSHA Salas Attending Unavailable CATALINA, HEIDY E Attending Unavailable CATALINA, HEIDY E Attending Unavailable Lue, Lisa MIrina Attending Unavailable AICHHOLZLATOSHA Attending Unavailable LueLisa MIrina Attending Unavailable Lue Lisa MIrina Attending Unavailable Lue Lisa MIrina Attending Unavailable Lue, Lisa MIrina Referring Unavailable Lue, Lisa MIirna Attending Unavailable CATALINA, HEIDY E Attending Unavailable Lue Lisa TAVERAS Unavailable ARUNA, TAURUS Attending Unavailable TAURUS BALLARD Attending Unavailable TAURUS BALLARD Admitting Unavailable Lentz, Sumi Primary Care Unavailable Aichholkimberly, Latosha J Attending Unavailable Aichholz, Latosha J Admitting Unavailable VERCE, SWETA N Attending Unavailable AICHHOLZ, LATOSHA J Referring Unavailable AICHHOLZ, LATOSHA J Primary Care Unavailable VERCE, SWETA N Referring Unavailable AICHHOLZ, LATOSHA J Primary Care Unavailable RUTH ZACKERY E Admitting Unavailable ZACKERY MIRANDA E Attending Unavailable AICHHOLZ, LATOSHA J Referring Unavailable AICHHOLZ, LATOSHA J Primary Care Unavailable RUTH ZACKERY E Attending Unavailable RUTH ZACKERY E Referring Unavailable AICHHOLZ, LATOSHA J Primary Care Unavailable Allergies Allergy Classification Reported Allergen(s) Allergy Type Date of Onset Reaction(s) Facility Latex (1 source) Latex Substance Allergy 0 Rash [facility] (20 sources) Latex; Translations: [Latex] Allergy to substance 0 Eruption of skin (disorder), Rash [facility] Medications Current Medications Medication Drug Class(es) [...] on above: Take 2 tablets by mo uth every 6 hours as needed for pain. acetaminophen 325 mg / HYDROcodone bitartrate 7.5 mg oral tablet (20 sources) Opioid Agonist Start: 09-17-2023 take 1 tablet by mouth three times daily as needed for pain HYDROcodone-acetami nophen (NORCO) 7.5-325 mg per tablet Indications: Reflex sympathetic dystrophy of right upper extremity Take 1 tablet by mouth 3 (three) times a day as needed for pain. 90 tablet 0 09/17/2023 Active Start: 08-11-2023 End: 09-07-2023 take 1 tablet by mouth three times daily as needed for pain HYDROcodone-acetaminophen (NORCO) 7.5-32 5 mg per tablet Indications: Reflex sympathetic dystrophy of right upper extremity Take 1 tablet by mouth 3 (three) times a day as needed for pain. 90 tablet 0 08/11/2023 Active Start: 09-08-2022 acetaminophen- hydrocodone 325 mg-7.5 mg oral tablet Refill(s) 0 Start Date: 09/08/22 Status: Ordered Start: 01-03-2021 take 1 tablet by rain th every eight hours as needed HYDROcodone-Acetaminophen (NORCO) 7.5-32 5 mg per tablet Take 1 tablet by mouth three times daily as needed. 0 01/03/2021 Active take 1 tablet by rain th every six hours Comment on above: Take 1 tablet by rain th three times daily as needed. AMBULATORY COMPOUNDED MEDICATION (1 source) Start: 08-22-19 AMBULATORY COMPOUNDED MEDICATION Apply 120 g topically See Admin Instructions. Formula 8E Apply 1-2 grams topically to affected area three to four times daily 120 g 2 08/22/2018 Active amLODIPine 5 mg oral tablet (11 sources) Dihydropyridine Calcium Channel Renetta Start: 09-08-19 amLODIPine 5 mg Tab Refills(s) 0 Start Date: 09/08/22 Status: Ordered Budesonide / formoterol (2 sources) Corticosteroid, beta2-Adrenergic Agonist take 2 puff(s) by inhalation three times daily as needed budesonide-formote roL (SYMBICORT) 80-4.5 mcg/actuation inhaler Inhale 2 puffs into the lungs 3 times daily as needed. 0 Active take 2 puff(s) by in halation twice daily budesonide-formoterol (SYMBICORT) 80-4.5 mcg/actuation inhaler Inhale 2 Puffs as instructed twice daily. 0 Active Comment on above: Inhale 2 Puffs as in structed twice daily. cephalexin 500 mg oral capsule (7 sources) Cephalosporin Antibacterial Start: 05-15-20 take 1 capsule by mouth every twelve hours ciprofloxacin 250 mg oral tablet (1 source) Quinolone Antimicrobial Start: 01-22-20 End: 01-28-20 take 1 tablet by mouth once daily ciprofloxacin HCl (CIPRO) 250 mg tablet Take 1 tablet by mouth once daily for 3 days. 3 tablet 0 01/21/2021 01/27/2021 Active Comment on above: Take 1 tablet by rain once daily for 3 days. Dexcom G6 Sensor - (6 sources) Start: 06-08-20 Dexcom G6 Sensor - as directed SQ change q 10 days for 90 days May, Active Dexcom G6 Sensor - as directed SQ change q 10 days for 90 days Active Dexcom G6 Transmitter - (6 sources) Start: 06-08-2023 Dexcom G6 Michaels smitter - as directed SQ change every [...] on above: Take 1 capsule by mo [facility] two times a day. estradiol 0.1 mg/ml vaginal cream (6 sources) Estrogen Start: 05-03-2023 Estrace 0.1 mg /g Cream See Instructions, 42.5 gm, Refill(s) 3, apply pea size amount to urethra/inner vagina 3x/week x 1 month, then 2x/week for maintainence, [facility] [id number], 153, cm, 05/03/23 9:52:00 EDT, Height/Length Dosing, 59, kg, 05/03/23 9:52:00 EDT, Weight Dosing Start Date: 05/03/23 Status: Ordered ferrous sulfate 325 mg oral tablet (16 sources) Start: 04-16-2021 take 1 tablet by mouth every twenty-four hours Start: 04-16-2021 take 1 tablet by rain three times daily at mealtime FEROSUL 325 mg (65 mg iron) tablet Take 1 tablet by mouth three times daily with meals. 0 04/16/2021 Active Comment on above: Take 1 tablet by rain three times daily with meals. folic acid 1 mg oral tablet (11 sources) Start: 09-08-2022 folic acid 1 mg Tab Refills(s) 0 Start Date: 09/08/22 Status: Ordered Insulin Aspart FlexPen (10 sources) Start: 09-21-2022 Insulin Aspart FlexPen SubCutaneous, TIDAC, Refills(s) 0 Start Date: 09/21/22 Status: Ordered insulin aspart, human 100 unt/ml injectable solution (9 sources) Insulin Analog Start: 06-08-2017 insulin aspart (NovoLOG) 100 unit/mL injection Please use your sliding scale 1 Box 1 06/08/2017 Active insulin aspart ( NOVOLOG FLEXPEN U-100 INSULIN SUBCUTANEOUS) Inject subcutaneously. Sliding scale 0 Active Comment on above: Inject subcutaneousl y. Sliding scale 3 ml insulin degludec 100 unt/ml / liraglutide 3.6 mg/ml pen injector (5 sources) Insulin Analog, GLP-1 Receptor Agonist Start: 023 inject 28 [IU] by subcutaneous injection once daily in the morning Xultophy 100-3.6 UNIT-MG/ML 28 units Subcutaneous qam for 90 days titrate up to max 30 units/day (stop lantus) Apr, Active 3 ml insulin lispro 100 unt/ml cartridge (10 sources) Insulin Analog HumaLOG 100 UNIT/ML 4-6-8-10 units ac according to meal size tid. Corrective scale 1:25 ac, hs Subcutaneous As Directed Active lisinopril 10 mg oral tablet (1 source) Angiotensin Converting Enzyme Inhibitor take 1 tablet by mouth in the morning lisinopriL (PRINIVIL,ZESTRIL) 10 mg tablet Take 1 tablet (10 mg total) by mouth in the morning. 0 Active metFORMIN hydrochloride 1000 mg oral tablet (1 source) Biguanide take 1 tablet by mouth twice daily at mealtime metFORMIN (GLUCOPHAGE) 1000 mg tablet Take 1,000 mg by mouth 2 (two) times a day with meals. 0 Active 24 hr metoprolol succinate 25 mg extended release oral tablet (1 source) beta-Adrenergic Renetta Start: take 1 tablet by mouth every twenty-four hours in the morning metoprolol succinate XL (TOPROL XL) 25 mg 24 hr tablet Take 1 tablet (25 mg total) by mouth in the morning. 0 12/20/2022 Active 24 hr mirabegron 50 mg extended release oral tablet (1 source) beta3-Adrenergic Agonist Start: End: take 1 tablet by mouth once daily Myrbetriq 50 mg oral tablet, extended release 50 mg = 1 tab(s), Oral, Daily, X 30 day(s), # 30 tab(s), Refills(s) 6, Pharmacy: [facility] [id number], 153, cm, 09/21/22 8:48:00 EST, Height/Length [...] day(s), # 30 tab(s), Refills(s) 6, Pharmacy: [facility] [id number], 153, cm, 09/13/22 13:38:00 EST, Height/Length Dosing, 52.5, kg, 09/13/22 13:38:00 EST, Weight Dosing Start Date: 09/13/22 Stop Date: 04/11/23 Status: Ordered potassium chloride 10 meq extended release oral capsule (11 sources) Start: potassium chloride 10 mEq Cap-ER Refills(s) 0 Start Date: 09/08/22 Status: Ordered pregabalin 150 mg oral capsule (20 sources) Start: End: take 1 capsule by mouth twice daily pregabalin (LYRICA) 150 mg capsule Take 1 capsule by mouth two times a day for 30 days. 0 09/04/2023 10/04/2023 Active Start: 01-01-2021 pregabalin (LY PRIYANK) 150 mg capsule Indications: Complex regional pain syndrome type 1 of right upper extremity Take 1 capsule (150 mg total) by mouth in the morning and 1 capsule (150 mg total) at noon and 1 capsule (150 mg total) in the evening. 90 capsule 1 08/11/2023 Active Comment on above: Take 150 mg by mouth three times daily. Take 1 capsule by [facility] two times a day for 30 days. trospium chloride 20 mg oral tablet (4 sources) Cholinergic Muscarinic Antagonist Start: 02-22-2023 take 1 tablet by mouth once daily trospium 20 mg oral tablet 20 mg = 1 tab(s), Oral, Daily, # 30 tab(s), Refills(s) 11, Pharmacy: [facility] [id number], 153, cm, 02/22/23 8:55:00 EDT, Height/Length Dosing, 52.5, kg, 02/22/23 8:55:00 EDT, Weight Dosing Start Date: 02/22/23 Status: Ordered vitamin b12 1 mg extended release oral tablet (16 sources) Vitamin B12 Start: 06-14-2023 take 1 tablet by mouth in the morning cyanocobalamin, vitamin B-12, (VITAMIN B-12) 1,000 mcg tablet extended release Take 1 tablet (1 mg total) by mouth in the morning. 0 06/14/2023 Active Start: 04-11-2023 take 1 tablet by rain once daily Start: 04-11-2023 take 1 tablet by rain once daily Cyanocobalamin ER 1000 MCG 1 tablet Orally Once a day for 90 days Mar, Active Start: 04-16-2021 take 1 tablet by rain once daily VITAMIN B-12 1,000 mcg tab Take 1,000 mcg by mouth once daily. 0 04/16/2021 Active Comment on above: Take 1,000 mcg by mo [facility] once daily. Completed/Discontinued Medications Medication Drug Class(es) Dates Sig (Normalized) Sig (Original) [id number] 200 actuat albuterol 0.09 mg/actuat metered dose inhaler (10 sources) beta2-Adrenergic Agonist take 2 puff(s) by inhalation every six hours as needed for wheezing albuterol HFA (PROVENTIL HFA, VENTOLIN HFA) 90 mcg/actuation inhaler Inhale 2 Puffs as instructed every 6 hours as needed for wheezing/shortness of breath. 0 Active take 3 mL by inhalat ion in the morning as needed albuterol (PROVENTIL,VENTOLIN) 2.5 mg /3 mL (0.083 %) nebulizer solution Inhale 3 mL (2.5 mg total) by nebulization in the morning. And PRN. 0 Active Comment on above: Inhale 2 Puffs as in structed every 6 hours as needed for wheezing/shortness of breath. insulin glargine 100 unt/ml injectable solution (19 sources) Insulin Analog Start: 2020 inject 25 [IU] by subcutaneous injection once daily at bedtime insulin glargine (LANTUS) 100 unit/mL injection Inject 25 Units subcutaneously daily at bedtime. 100 mL 0 01/21/2021 Active Start: 08-14-2020 insulin glargi ne (LANTUS SOLOSTAR U-100 INSULIN) 100 unit/mL (3 mL) insulin pen Inject 30 Units under the skin 2 (two) times a day. 1 Box 12 08/14/2020 Active Lantus SoloStar 100 UNIT/ML 28 units Subcutaneous qam Active Lantus SoloStar 100 UNIT/ML as directed Subcutaneous 14 UNITS ONCE A DAY Active Comment on above: Inject 25 Units subc utaneously daily at bedtime. Problems Active Problems Problem Classification Problem Date Documented Da te Episodic/Chronic Administrative/social admission (2 sources) Dietary counseling and surveillance Episodic Asthma (9 sources) Unspecified asthma, uncomplicated; Translations: [Mild intermittent [...] Onset: 06-30-2022 Chronic Congestive heart failure; nonhypertensive (12 sources) Heart failure; Translations: [Heart failure, unspecified] Onset: 08-09-2022 09-08-2022 Chronic Deficiency and other anemia (1 source) Anemia, unspecified Episodic Diabetes mellitus with complications (20 sources) Disorder due to type 2 diabetes mellitus; Translations: [Type 2 diabetes mellitus with unspecified complications] Onset: 2022 Chronic Diabetes mellitus without complication (20 sources) Type 2 diabetes mellitus; Translations: [Type 2 diabetes mellitus without complications] Onset: 11-03-2021 09-08-2022 Chronic Diabetes mellitus without complication (15 sources) Glycosuria; Translations: [Glycosuria] Onset: 08-13-2020 Episodic Diabetes mellitus without complication (1 source) [...] Onset: 01-17-2021 01-21-2021 Episodic Heart valve disorders (10 sources) Rheumatic mitral valve disease, unspecified; Translations: [...] OSTEOMYEL LT ANKLE FOOT] Onset: 09-13-2022 Chronic Nonspecific chest pain (4 sources) Chest pain, unspecified; Translations: [CHEST PAIN UNSPECIFIED] Onset: 12-15-2022 Episodic Nutritional deficiencies (20 sources) Deficiency of macronutrients; Translations: [Unspecified severe protein-calorie malnutrition] Onset: 01-19-2021 01-21-2021 Chronic Nutritional deficiencies (1 source) Deficiency of other specified B group vitamins Episodic Osteoporosis (1 source) Age-related osteoporosis without current pathological fracture; Translations: [AGE-REL OSTEOPOR W/O CURR PATH FX] Onset: 12-31-2022 Chronic Other aftercare (17 sources) Long-term current use of insulin; Translations: [terminal clerk (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] Episodic Other aftercare (3 sources) terminal clerk (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; Translations: [SENIOR LIVING CURRENT USE OF INSULIN] Onset: 08-09-2022 Episodic Other circulatory disease (1 source) Other disorders of arteries, 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; Translations: [OTH D/O ART ARTRIOL CAP DZ CLSS ELS] Onset: 09-13-2022 Chronic Other connective tissue disease (5 sources) Pain in left foot; Translations: [PAIN IN LEFT FOOT] Onset: 06-15-2022 Episodic Other diseases of bladder and urethra (1 source) Neuromuscular dysfunction of bladder, unspecified; Translations: [NEUROMUSCULR DYSFNCTION BLADDER UNS] Onset: 07-25-2022 Chronic Other diseases of bladder and urethra (8 sources) Bladder outlet obstruction; Translations: [Bladder-neck obstruction] Onset: 01-29-2021 01-29-2021 Chronic Other diseases of bladder and urethra (8 sources) Neurogenic bladder; Translations: [Neuromuscular dysfunction of [...] Episodic Other diseases of kidney and ureters (12 sources) Cyst of kidney; Translations: [Cyst of kidney, acquired] Onset: 01-10-2017 09-13-2022 Episodic Other diseases of kidney and ureters (1 source) Acquired renal cystic disease; Translations: [Cyst of kidney, acquired] 07-05-2023 Episodic Other endocrine disorders (7 sources) Hyperparathyroidism; Translations: [Hyperparathyroidism , unspecified] Chronic Other nervous system disorders (8 sources) Chronic pain due to injury; Translations: [Chronic pain due to trauma] Onset: 06-06-2023 06-06-2023 Chronic Other nervous system disorders (4 sources) Complex regional pain syndrome type I of right upper limb; Translations: [Complex regional pain syndrome I of right upper limb] Onset: 09-26-2017 09-07-2023 Chronic Other nervous system disorders (1 source) Complex regional pain syndrome I of right upper limb; Translations: [Complex regional pain syndrome i of right upper limb] Onset: 11-15-2022 Chronic Other nutritional; endocrine; and metabolic disorders (1 [...] [RHEUMATOID ARTHRITIS UNSPECIFIED] Onset: 09-13-2022 Chronic Unclassified (11 sources) Finding of sensation of bladder 09-13-2022 Unclassified (1 source) CHRN KIDNEY DISEASE STG 3 UNSP; Translations: [CHRN KIDNEY DISEASE STG 3 UNSP] Onset: 12-31-2022 Unclassified (1 source) CONTACT W/AND (SUSP) EXPOS COVID-19; Translations: [CONTACT W/AND (SUSP) EXPOS COVID-19] Onset: 07-25-2022 Unclassified (1 source) Complex regional pain syndrome type 1 of right upper extremity [G90.511] Onset: 09-29-2023 Unclassified (1 source) Extremity Pain Onset: 08-09-2023 Past or Other Problems Problem Classification Problem Date Documented Da te Episodic/Chronic Acute and unspecified renal failure (7 sources) Acute injury of kidney; Translations: [Acute kidney failure, unspecified] Onset: 01-17-2021 01-21-2021 Episodic Calculus of urinary tract (20 sources) Ureteric stone; Translations: [Calculus of ureter] Onset: 01-17-2021 01-18-2021 Episodic Chronic kidney disease (3 sources) Chronic kidney disease Complications of surgical procedures or medical care (5 sources) Other complications of amputation stump; Translations: [OT COMPLICATIONS AMPUTATION STUMP] Onset: 06-24-2022 Episodic Deficiency and other anemia (19 sources) Iron deficiency anemia; Translations: [Iron deficiency anemia, unspecified] Onset: 11-15-2021 09-08-2022 Episodic Deficiency and other anemia (1 source) Folate deficiency anemia, unspecified; Translations: [FOLATE DEFICIENCY ANEMIA UNS] Onset: 07-25-2022 Episodic E Codes: Natural/environment (1 source) Exposure to other specified factors, initial encounter; Translations: [EXPOSURE OTHER SPEC FACTORS INITIAL] Onset: 06-15-2022 Episodic Fluid and electrolyte disorders (18 sources) Hyperkalemia; Translations: [Hyperkalemia] Onset: 07-25-2022 09-08-2022 Episodic Fracture of upper limb (2 sources) Fracture of unspecified phalanx of right little finger, subsequent encounter for fracture with routine healing; Translations: [Displaced fracture of proximal phalanx of right little finger, initial encounter for closed fracture] Onset: 06-15-2022 Episodic Malaise and fatigue (9 sources) Asthenia; Translations: [Weakness] Onset: 01-17-2021 01-18-2021 Episodic Neoplasms of unspecified nature or uncertain behavior (7 sources) Neoplasm of uncertain behavior of left kidney; Translations: [Neoplasm of kidney] Onset: 06-06-2023 06-22-2023 Episodic Open wounds of extremities (1 source) Unspecified open wound of right great toe without damage to nail, initial encounter; Translations: [UNS OP WND RT GRT TOE NO DMG NL INT] Onset: 05-16-2022 Episodic Other aftercare (1 source) 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; Translations: [[facility] SENIOR LIVING CURRENT DRUG THERAPY] Onset: 08-09-2022 Episodic Other aftercare (1 source) Admission statuses; Translations: [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 (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 of opiate analgesic] Onset: 03-15-2022 03-15-2022 Episodic Other aftercare (1 source) 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 (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 of opiate analgesic; Translations: [terminal clerk (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] IN RIGHT FOOT] Onset: 06-02-2022 Episodic Other diseases of kidney and ureters (6 sources) Cyst of kidney, acquired; Translations: [CYST OF KIDNEY ACQUIRED] Onset: 09-15-2022 Episodic Other gastrointestinal disorders (1 source) Diarrhea, unspecified; Translations: [DIARRHEA UNSPECIFIED] Onset: 07-25-2022 Episodic Other lower respiratory disease (1 source) Hypoxemia; Translations: [HYPOXEMIA] Onset: 07-25-2022 Episodic Other nervous system disorders (4 sources) Postoperative pain ; Translations: [Other acute postprocedural pain] Onset: 06-27-2023 06-27-2023 Episodic Other nervous system disorders (1 source) Other acute postprocedural pain; Translations: [Postoperative pain] Onset: 06-22-2023 Episodic Other nutritional; endocrine; and metabolic disorders [...] toe] Onset: 07-25-2022 Episodic Urinary tract infections (14 sources) Urinary tract infectious disease; Translations: [Urinary tract infection, site not specified] Onset: 07-25-2022 09-08-2022 Episodic Results Test Name Value Interpretation Reference Range Facility Glucose Glucometer (BldC) [M ass/Vol]on 09-29-2023 Glucose [Mass/Vol] 356 mg/dL High 65-99 [facility] CNPNon 09-27-2023 CNPN Telephone (FVPRAD) AISLINN WHEELER ([id number]) 1960 F Date Time Provider Department 09/27/23 ROSIE BUCKNER FVPRAD During your visit today, we recorded the following information about you: Rosie Buckner, Research Coordinator 09/27/2023 2:33 PM Signed IRB# [id number]: Vascular events in patients undergoing same-day nonCardiac surgery - [facility] PI: Mary Rojas MD, LETY, FASA. Outcomes Research Department. Anesthesia [place]. [facility]. Aislinn Wheeler was unavailable at the listed phone number. We will attempt to contact the patient through Pap[employer] message. Rosie Esqueda Research Coordinator Research Coordinator Allergies As of Date: 09/27/2023 Noted Allergy Reaction LATEX 02/05/2020 2 - Rash Comments: Added based on information entered during case entry, please review and add reactions, type, and severity as needed Date Reviewed: 09/03/2023 Reviewed by: Chuck Kirk RN - Fully Assessed Reason for Visit: Research F/U [441] Prescriptions as of 09/27/2023 - pregabalin (LYRICA) 150 mg capsule Take 1 capsule by mouth two times a day for 30 days. - FEROSUL 325 mg (65 mg iron) [...] hours as needed for wheezing/shortness of breath. Problem List As Of Date 09/27/2023 Noted Resolved Ureterolithiasis [N20.1] 01/17/2021 Acute bilateral obstructive uropathy [N13.9] 01/17/2021 Pyelonephritis [N12] 01/17/2021 01/21/2021 Sepsis (HCC) [A41.9] 01/17/2021 01/21/2021 Hyponatremia [E87.1] 01/17/2021 01/21/2021 Hyperkalemia [E87.5] 01/17/2021 09/04/2023 ANATOLIY (acute kidney injury) (HCC) [N17.9] 01/17/2021 09/04/2023 Hydronephrosis due to obstruction of ureter [N1*01/17/2021 [...] with hyperglycemia, wi*06/06/2023 Renal neoplasm [D49.519] 06/22/2023 Postoperative pain [G89.18] 06/27/2023 Diabetic ulcer of left midfoot associated with *08/31/2023 Fever [R50.9] 08/31/2023 09/04/2023 Urinary tract infection without hematuria [N39.*08/31/2023 09/04/2023 Encounter Status:Closed by ROSIE BUCKNER on 09/27/23 [facility] CNPNon 09-26-2023 CNPN Telephone (FVPRAD) AISLINN WHEELER ([id number]) 1960 F Date Time Provider Department 09/26/23 ROSIE BUCKNER FVPRAD During your visit today, we recorded the following information about you: Rosie Buckner, Research Coordinator 09/26/2023 3:32 PM Signed IRB# [id number]: Vascular events in patients undergoing same-day nonCardiac surgery - [facility] PI: Mary Rojas MD, LETY, FASA. Outcomes Research Department. Anesthesia [place]. [facility]. Aislinn Wheeler was unavailable at the listed phone number. We will attempt to contact the patient again at a later date. Rosie Esqueda Research Coordinator Research Coordinator Allergies As of Date: 09/26/2023 Noted Allergy Reaction LATEX 02/05/2020 2 - Rash Comments: Added based on information entered during case entry, please review and add reactions, type, and severity as needed Date Reviewed: 09/03/2023 Reviewed by: Chuck Kirk, REY - Fully Assessed Reason for Visit: Research F/U [078] Prescriptions as of 09/26/2023 - pregabalin (LYRICA) 150 mg capsule Take 1 capsule by mouth two times a day for 30 days. - FEROSUL 325 mg (65 mg iron) [...] hours as needed for wheezing/shortness of breath. 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] 06/22/2023 Postoperative pain [G89.18] 06/27/2023 Diabetic ulcer of left midfoot associated with *08/31/2023 Fever [R50.9] 08/31/2023 09/04/2023 Urinary tract infection without hematuria [N39.*08/31/2023 09/04/2023 Encounter Status:Closed by ROSIE BUCKNER on 09/26/23 [facility] CNDSon 09-04-2023 DS HNO ID: [id number] Author: ANTHONY BARROW MD Service: Hospital Medicine Author Type: Physician Type: Discharge Summary Filed: 09/04/2023 10:32 Note Text: DISCHARGE SUMMARY PATIENT NAME: Aislinn Wheeler ADMISSION DATE: 08/31/2023 DISCHARGE DATE: 09/04/2023 ATTENDING PHYSICIAN: Anthony Barrow MD Code Status: Not on file PCP: Latosha Olmstead Highest Readmission Risk Score: 21 The 30 day readmissions risk score is derived from an internally validated risk model which evaluates patient level characteristics, utilization history, medication orders and lab results up until the day of discharge. Patients with a score of 40 or above are considered highest risk for readmission. Specific patient level drivers will be listed at the bottom of the summary. TRANSITIONS OF CARE CRITICAL ISSUES: MILLER MEDICATION CHANGES: Per discharge medication reconciliation sheet LAB MONITORING NEEDED: Not applicable IMAGING FOLLOW-UP: Not applicable LABS AND PROCEDURES PENDING AT DISCHARGE: Test Results Not Yet Available from This Hospitalization: Please Review at Your Follow Up Appointment Order Current Status BLOOD CULTURE Preliminary result BLOOD CULTURE Preliminary result No pending results. FOLLOW UP: The appointment NEEDS TO BE scheduled. REASON FOR HOSPITALIZATION: UTI, diabetic foot ulcer PRINCIPAL DIAGNOSIS: ANATOLIY on chronic kidney disease, diabetes type 2 insulin-dependent with hyperglycemia, UTI, diabetic foot ulcer, urinary retention SECONDARY DIAGNOSIS: Principal Problem (Resolved): ANATOLIY (acute kidney injury) (HCC) (POA: Yes) Active Problems: Diabetic ulcer of left midfoot associated with type 2 diabetes mellitus, limited to breakdown of skin (HCC) (POA: Unknown) Resolved Problems: Hyperkalemia (POA: Yes) Fever (POA: Unknown) Urinary tract infection without hematuria (POA: Unknown) HOSPITAL COURSE: This is 63 years old female admitted to the hospital with UTI symptoms was started on IV antibiotics found to have acute kidney injury on chronic kidney disease with diabetes type 2 with severe hyperglycemia patient insulin-dependent, patient was kept on diabetic diet and on Lantus 25 with sliding scale with improvement in her blood sugar readings , her kidney function improved and went back to baseline with IV fluid hydration, patient was seen by podiatry service for diabetic foot ulcer in the left foot underwent x-ray was inconclusive, CT with IV contrast ruled out osteomyelitis, patient blood culture and repeat urine culture came back negative all antibiotics were discontinued patient discharged home to follow-up with PCP as outpatient patient has received 4 doses of Rocephin during the hospitalization stay Patient to have repeat kidney function on Monday as outpatient patient is aware General patient awake alert oriented x3 no acute distress Skin no rash no ulcers Heart S1-S2 no murmurs rubs or gallops Lungs diminished in the bases no wheezing Abdomen positive bowel sounds soft nontender Extremity positive pedal pulses, no edema Neurological exam cranial nerves II through XII intact OPERATIONS/PROCEDURE DURING THIS HOSPITALIZATION: * No surgery found * No other procedures CONSULTS DURING HOSPITALIZATION: Treatment Team: Attending Provider: Anthony Barrow MD Consulting: Josue Espinosa DPM Consulting: Linda Hoffman Orders Placed This Encounter Smoking Cessation Education Physician Consult Physician Consult [facility] FOLLOW UP PROVIDER FOR SUMMARY OF CARE - [facility] MEASURE PATIENT CONDITION AT DISCHARGE: Fair ADVANCE CARE PLANNING DISCUSSION (if applicable): N/A DISCHARGE DISPOSITION: Home with Self Care WOUND/SURGICAL SITE CARE: None SUPPLIES OR EQUIPMENT: None DIET: Resume pre-hospital diet Low carb diet: 3-5 carbs/meal, <200 mg cholesterol, low saturated fat ACTIVITY AND EXERCISE: Resume pre-hospital activity ADDITIONAL INFORMATION: Hospital Course No notes on file FOLLOW UP APPOINTMENTS: Future Appointments Date Time Provider Department Center 10/06/2023 1:00 PM US [facility] BRITTANIE VALDES [facility] Brittanie 10/06/2023 2:00 PM LAB [facility] SHABBIR LABZULMA [facility] Brittanie 10/11/2023 1:50 PM Taurus Ballard MD [facility] ALLERGIES Allergen Reactions Latex Rash Added based on information entered during case entry, please review and add reactions, type, and severity as needed DISCHARGE MEDICATION: Medication List CHANGE how you take these medications pregabalin 150 mg capsule Commonly known as: LYRICA Take 1 capsule by mouth two times a day for 30 days. What changed: when to take this CONTINUE taking these medications albuterol HFA 90 mcg/actuation inhaler Commonly known as: PROVENTIL HFA, VENTOLIN HFA FeroSuL 325 mg (65 mg iron) tablet Generic drug: ferrous sulfate insulin glargine 100 unit/mL injection Commonly known as: LANTUS Inject 25 Units subcutaneously daily at bedtime. NOVOLOG FLEXPEN U-100 INSULIN SUBCUTANEO (more content not included)... [facility] ALLIED HEALTHon 09-03-2023 ALLIED HEALTH HNO ID: [id number] Author: NICOL MILLIGAN RT(R) Service: Radiology Author Type: Technologist Type: Allied Health Filed: 09/03/2023 14:58 Note Text: Radiology Service Progress Note PATIENT NAME: Aislinn Wheeler DATE OF SERVICE: September 03, 2023 TIME: 2:57 PM PATIENT IDENTITY VERIFICATION COMPLETED USING TWO (2) IDENTIFIERS: Name and Date of confirmed by patient verbally. FALL SCREENING: Has the patient had 2 falls in the last year or 1 fall with injury or currently using an Ambulatory Assistive Device (Walker, Cane, Wheelchair, Crutches, etc.)? No PATIENT GENDER DATA: Female. status: : No status: NO. PATIENT RELEVANT IMPLANT DATA REVIEWED: Not Applicable RADIOLOGY DEPARTMENT: CT; Exam(s) Completed: Left Foot PERIPHERAL IV DATA: Not applicable SIGNED BY: RT Michael(R) September 03, 2023 2:57 PM [facility] Basic metabolic 2000 panelon 09-03-2023 Anion gap [Moles/Vol] 10 mmol/L Normal 9-18 [facility] Comment on above: Order Comment: Speci men Type: BLOOD SPECIMEN Ordering Facility: [facility] Address: [address] [place] [address] Performed By: #### 2 4321-2 #### [facility] CLIA [id number] [address] [place] [address] [place] Calcium [Mass/Vol] 8.8 mg/dL Normal 8.5-10.2 [facility] Comment on above: Order Comment: Speci men Type: BLOOD SPECIMEN Ordering Facility: [facility] Address: [address] [place] [address] Performed By: #### 2 4321-2 #### [facility] CLIA [id number] [address] [place] [address] [place] Chloride [Moles/Vol] 103 mmol/L Normal 97-105 [facility] Comment on above: Order Comment: Speci men Type: BLOOD SPECIMEN Ordering Facility: [facility] Address: [address] [place] [address] Performed By: #### 2 4321-2 #### [facility] CLIA [id number] [address] [place] [address] [place] CO2 [Moles/Vol] 23 mmol/L Normal 22-30 [facility] Comment on above: Order Comment: Speci men Type: BLOOD SPECIMEN Ordering Facility: [facility] Address: [address] [place] [address] Performed By: #### 2 4321-2 #### [facility] CLIA [id number] [address] [place] [address] [place] Creatinine [Mass/Vol] 1.29 mg/dL High 0.58-0.96 [facility] Comment on above: Order Comment: Speci men Type: BLOOD SPECIMEN Ordering Facility: [facility] Address: [address] [place] [address] Performed By: #### 2 4321-2 #### [facility] CLIA [id number] [address] [place] [address] [place] Creatinine and Glomerular filtration rate.predicted panel (S/P/Bld) 46 mL/min/1.73m??? Low >=60 [facility] Comment on above: Order Comment: Speci men Type: BLOOD SPECIMEN Ordering Facility: [facility] Address: [address] [place] [address] Result Comment: Donna mated Glomerular Filtration Rate [...] GFR. Performed By: #### 2 4321-2 #### [facility] CLIA [id number] [place] [address] [place] Glucose [Mass/Vol] 123 mg/dL High 74-99 [facility] Comment on above: Order Comment: [place] Type: BLOOD SPECIMEN Ordering Facility: [facility] Address: [address] [place] [address] Result Comment: The [place] [employer] (ADA) provides guidance for cutoff [...] Standards of Medical Care in Diabetes 2016, [place] [employer]. Diabetes Care. 2016.39(Suppl 1). Performed By: #### 2 4321-2 #### [facility] CLIA [id number] [address] [place] [address] [place] Potassium [Moles/Vol] 5.0 mmol/L Normal 3.7-5.1 [facility] Comment on above: Order Comment: [place] Type: BLOOD SPECIMEN Ordering Facility: [facility] Address: [address] [place] [address] Performed By: #### 2 4321-2 #### [facility] CLIA [id number] [place], [place] [address] [place] Sodium [Moles/Vol] 136 mmol/L Normal 136-144 [facility] Comment on above: Order Comment: [place] Type: BLOOD SPECIMEN Ordering Facility: [facility] Address: [address] [place] [address] Performed By: #### 2 4321-2 #### [facility] CLIA [id number] [place] [address] [place] Urea nitrogen [Mass/Vol] 22 mg/dL High 7-21 [facility] Comment on above: Order Comment: Speci men Type: BLOOD SPECIMEN Ordering Facility: [facility] Address: [address] [place] [address] Performed By: #### 2 4321-2 #### [facility] CLIA [id number] [address] [place] [address] [place] CBC panel Auto (Bld)on 09-03 Erythrocyte distribution width (RBC) [Ratio] 14.6 % Normal 11.5-15.0 [facility] Comment on above: Order Comment: Speci men Type: VENOUS BLOOD SPECIMEN Ordering Facility: [facility] Address: [address] [place] [address] Performed By: #### 2 4344-4 #### [facility] CLIA [id number] [address] [place] [address] [place] Hematocrit (Bld) [Volume fraction] 28.7 % Low 36.0-46.0 [facility] Comment on above: Order Comment: Speci men Type: VENOUS BLOOD SPECIMEN Ordering Facility: [facility] Address: [address] [place] [address] Performed By: #### 2 4344-4 #### [facility] CLIA [id number] [address] [place] [address] [place] Hemoglobin (Bld) [Mass/Vol] 8.9 g/dL Low 11.5-15.5 [facility] Comment on above: Order Comment: Speci men Type: VENOUS BLOOD SPECIMEN Ordering Facility: [facility] Address: [address] [place] [address] Performed By: #### 2 4344-4 #### [facility] CLIA [id number] [address] [place] [address] [place] MCH (RBC) [Entitic mass] 24.1 pg Low 26.0-34.0 [facility] Comment on above: Order Comment: Speci men Type: VENOUS BLOOD SPECIMEN Ordering Facility: [facility] Address: [address] [place] [address] Performed By: #### 2 4344-4 #### [facility] CLIA [id number] [address] [place] [address] [place] MCHC (RBC) [Mass/Vol] 31.0 g/dL Normal 30.5-36.0 [facility] Comment on above: Order Comment: Speci men Type: VENOUS BLOOD SPECIMEN Ordering Facility: [facility] Address: [address] [place] [address] Performed By: #### 2 4344-4 #### [facility] CLIA [id number] [address] [place] [address] [place] MCV (RBC) [Entitic vol] 77.6 fL Low 80.0-100.0 [facility] Comment on above: Order Comment: Speci men Type: VENOUS BLOOD SPECIMEN Ordering Facility: [facility] Address: [address] [place] [address] Performed By: #### 2 4344-4 #### [facility] CLIA [id number] [address] [place] [address] [place] Nucleated RBC (Bld) [#/Vol] 10*3/uL Normal <0.01 [facility] Comment on above: Order Comment: Speci men Type: VENOUS BLOOD SPECIMEN Ordering Facility: [facility] Address: [address] [place] [address] Performed By: #### 2 4344-4 #### [facility] CLIA [id number] [address] [place] [address] [place] Platelet mean volume (Bld) [Entitic vol] 10.8 fL Normal 9.0-12.7 [facility] Comment on above: Order Comment: Speci men Type: VENOUS BLOOD SPECIMEN Ordering Facility: [facility] Address: [address] [place] [address] Performed By: #### 2 4344-4 #### [facility] CLIA [id number] [address] [place] [address] [place] Platelets (Bld) [#/Vol] 334 10*3/uL Normal 150-400 [facility] Comment on above: Order Comment: Speci men Type: VENOUS BLOOD SPECIMEN Ordering Facility: [facility] Address: [address] [place] [address] Performed By: #### 2 4344-4 #### [facility] CLIA [id number] [place] [address] [place] RBC (Bld) [#/Vol] 3.70 10*6/uL Low 3.90-5.20 [facility] Comment on above: Order Comment: Speci men Type: VENOUS BLOOD SPECIMEN Ordering Facility: [facility] Address: [address] [place] [address] Performed By: #### 2 4344-4 #### [facility] CLIA [id number] [place] [address] [place] WBC (Bld) [#/Vol] 6.44 10*3/uL Normal 3.70-11.00 [facility] Comment on above: Order Comment: Speci men Type: VENOUS BLOOD SPECIMEN Ordering Facility: [facility] Address: [address] [place] [address] Performed By: #### 2 4344-4 #### [facility] CLIA [id number] [place] [address] [place] [address] FOOT WO IVCON LTon 2023 CT FOOT WO IVCON LT * * *Final Report* * * DATE OF EXAM: Sep 03 2023 2:58PM [facility] 0073 - CT FOOT WO IVCON LT / PROCEDURE REASON: Osteomyelitis, foot * * * * Physician Interpretation * * * * LEFT FOOT CT: CLINICAL HISTORY: Osteomyelitis, foot TECHNIQUE: Spiral CT scanning of left foot was performed in axial plane. Coronal and sagittal reconstructions were obtained from the original data set. COMPARISON: Radiographs dated 08/31/2023. CT Radiation dose: Integrated Dose-length product (DLP) for this visit = 176 mGy*cm. CT Dose Reduction Employed: Automated exposure control(AEC) and iterative recon RESULT:Healed fracture deformity of fifth metatarsal distally with minimal associated lucency. Chronic fracture deformities of second through fourth metatarsals with associated cortical thickening. Status post amputation through first metatarsal midshaft. No acute fracture or bony destructive process. No bony erosions. Postoperative changes with associated metal artifacts about the medial malleolus. Achilles and plantar calcaneal enthesophytes are noted. No soft tissue collection is identified within the limitation of noncontrast CT. Skin irregularity in the forefoot laterally which could be due to ulceration. IMPRESSION: POSTTRAUMATIC AND POSTOPERATIVE CHANGES, NO EVIDENCE OF OSTEOMYELITIS ON THIS EXAMINATION. [employer]: [place] Transcribe Date/Time: Sep 03 2023 11:22P Dictated by : FINESSE BUTLER MD This examination was interpreted and the report reviewed and electronically signed by: FINESSE BUTLER MD on Sep 03 2023 11:27PM EST [id number] Normal [facility] Basic metabolic 2000 panelon 09-02-2023 Anion gap [Moles/Vol] 9 mmol/L Normal 9-18 [facility] Comment on above: Order Comment: Speci men Type: BLOOD SPECIMEN Ordering Facility: [facility] Address: [address] [place] [address] Performed By: #### 2 4321-2 #### [facility] CLIA [id number] [address] [place] [address] [place] Calcium [Mass/Vol] 8.1 mg/dL Low 8.5-10.2 [facility] Comment on above: Order Comment: Speci men Type: BLOOD SPECIMEN Ordering Facility: [facility] Address: [address] [place] [address] Performed By: #### 2 4321-2 #### [facility] CLIA [id number] [address] [place], [place] [id number] [place] Chloride [Moles/Vol] 106 mmol/L High 97-105 [facility] Comment on above: Order Comment: Speci men Type: BLOOD SPECIMEN Ordering Facility: [facility] Address: [address] [place] [address] Performed By: #### 2 4321-2 #### [facility] CLIA [id number] [address] [place] [address] [place] CO2 [Moles/Vol] 22 mmol/L Normal 22-30 [facility] Comment on above: Order Comment: Speci men Type: BLOOD SPECIMEN Ordering Facility: [facility] Address: [address] [place] [address] Performed By: #### 2 4321-2 #### [facility] CLIA [id number] [place] [address] [place] Creatinine [Mass/Vol] 1.30 mg/dL High 0.58-0.96 [facility] Comment on above: Order Comment: [place] Type: BLOOD SPECIMEN Ordering Facility: [facility] Address: [address] [place] [address] Performed By: #### 2 4321-2 #### [facility] CLIA [id number] [place] [address] [place] Creatinine and Glomerular filtration rate.predicted panel (S/P/Bld) 46 mL/min/1.73m??? Low >=60 [facility] Comment on above: Order Comment: [place] Type: BLOOD SPECIMEN Ordering Facility: [facility] Address: [address] [place] [address] Result Comment: Donna mated Glomerular Filtration Rate [...] GFR. Performed By: #### 2 4321-2 #### [facility] CLIA [id number] [address] [place] [address] [place] Glucose [Mass/Vol] 192 mg/dL High 74-99 [facility] Comment on above: Order Comment: [place] Type: BLOOD SPECIMEN Ordering Facility: [facility] Address: [address] [place] [address] Result Comment: The [place] [employer] (ADA) provides guidance for cutoff [...] Standards of Medical Care in Diabetes 2016, [place] [employer]. Diabetes Care. 2016.39(Suppl 1). Performed By: #### 2 4321-2 #### [facility] CLIA [id number] [address] [place] [address] [place] Potassium [Moles/Vol] 4.9 mmol/L Normal 3.7-5.1 [facility] Comment on above: Order Comment: Speci men Type: BLOOD SPECIMEN Ordering Facility: [facility] Address: [address] [place] [address] Performed By: #### 2 4321-2 #### [facility] CLIA [id number] [address] [place] [address] [place] Sodium [Moles/Vol] 137 mmol/L Normal 136-144 [facility] Comment on above: Order Comment: Speci men Type: BLOOD SPECIMEN Ordering Facility: [facility] Address: [address] [place] [address] Performed By: #### 2 4321-2 #### [facility] CLIA [id number] [address] [place] [address] [place] Urea nitrogen [Mass/Vol] 17 mg/dL Normal 7-21 [facility] Comment on above: Order Comment: Speci men Type: BLOOD SPECIMEN Ordering Facility: [facility] Address: [address] [place] [address] Performed By: #### 2 4321-2 #### [facility] CLIA [id number] [address] [place] [address] [place] CBC panel Auto (Bld)on 09-02 Erythrocyte distribution width (RBC) [Ratio] 14.6 % Normal 11.5-15.0 [facility] Comment on above: Order Comment: Speci men Type: VENOUS BLOOD SPECIMEN Ordering Facility: [facility] Address: [address] [place] [address] Performed By: #### 2 4344-4 #### [facility] CLIA [id number] [address] [place] [address] [place] Hematocrit (Bld) [Volume fraction] 28.4 % Low 36.0-46.0 [facility] Comment on above: Order Comment: Speci men Type: VENOUS BLOOD SPECIMEN Ordering Facility: [facility] Address: [address] [place] [address] Performed By: #### 2 4344-4 #### [facility] CLIA [id number] [address] [place] [address] [place] Hemoglobin (Bld) [Mass/Vol] 8.9 g/dL Low 11.5-15.5 [facility] Comment on above: Order Comment: Speci men Type: VENOUS BLOOD SPECIMEN Ordering Facility: [facility] Address: [address] [place] [address] Performed By: #### 2 4344-4 #### [facility] CLIA [id number] [address] [place] [address] [place] MCH (RBC) [Entitic mass] 24.2 pg Low 26.0-34.0 [facility] Comment on above: Order Comment: Speci men Type: VENOUS BLOOD SPECIMEN Ordering Facility: [facility] Address: [address] [place] [address] Performed By: #### 2 4344-4 #### [facility] CLIA [id number] [address] [place] [address] [place] MCHC (RBC) [Mass/Vol] 31.3 g/dL Normal 30.5-36.0 [facility] Comment on above: Order Comment: Speci men Type: VENOUS BLOOD SPECIMEN Ordering Facility: [facility] Address: [address] [place] [address] Performed By: #### 2 4344-4 #### [facility] CLIA [id number] [address] [place] [address] [place] MCV (RBC) [Entitic vol] 77.2 fL Low 80.0-100.0 [facility] Comment on above: Order Comment: Speci men Type: VENOUS BLOOD SPECIMEN Ordering Facility: [facility] Address: [address] [place] [address] Performed By: #### 2 4344-4 #### [facility] CLIA [id number] [address] [place] [address] [place] Nucleated RBC (Bld) [#/Vol] 10*3/uL Normal <0.01 [facility] Comment on above: Order Comment: Speci men Type: VENOUS BLOOD SPECIMEN Ordering Facility: [facility] Address: [address] [place] [address] Performed By: #### 2 4344-4 #### [facility] CLIA [id number] [address] [place] [address] [place] Platelet mean volume (Bld) [Entitic vol] 10.4 fL Normal 9.0-12.7 [facility] Comment on above: Order Comment: Speci men Type: VENOUS BLOOD SPECIMEN Ordering Facility: [facility] Address: [address] [place] [address] Performed By: #### 2 4344-4 #### [facility] CLIA [id number] [address] [place] [address] [place] Platelets (Bld) [#/Vol] 285 10*3/uL Normal 150-400 [facility] Comment on above: Order Comment: Speci men Type: VENOUS BLOOD SPECIMEN Ordering Facility: [facility] Address: [address] [place] [address] Performed By: #### 2 4344-4 #### [facility] CLIA [id number] [address] [place] [address] [place] RBC (Bld) [#/Vol] 3.68 10*6/uL Low 3.90-5.20 [facility] Comment on above: Order Comment: Speci men Type: VENOUS BLOOD SPECIMEN Ordering Facility: [facility] Address: [address] [place] [address] Performed By: #### 2 4344-4 #### [facility] CLIA [id number] [address] [place] [address] [place] WBC (Bld) [#/Vol] 5.94 10*3/uL Normal 3.70-11.00 [facility] Comment on above: Order Comment: Speci men Type: VENOUS BLOOD SPECIMEN Ordering Facility: [facility] Address: [address] [place] [address] Performed By: #### 2 4344-4 #### [facility] CLIA [id number] [address] [place] [address] [place] Bacteria Ur Culton Bacteria identified Cx Nom (U) CULTURE, URINE: No growth (<1,000 CFU/ml) Normal [facility] Comment on above: Performed By: #### 6 30-4 #### [facility] CLIA [id number] [address] [facility] [address] [id number] [address] [place] Basic metabolic 2000 panelon 09-01-2023 Anion gap [Moles/Vol] 10 mmol/L Normal 9-18 [facility] Comment on above: Order Comment: Speci men Type: VENOUS BLOOD SPECIMEN Ordering Facility: [facility] Address: [address] [place] [address] Performed By: #### 2 4344-4 #### [facility] CLIA [id number] [address] [place] [address] [place] Calcium [Mass/Vol] 7.9 mg/dL Low 8.5-10.2 [facility] Comment on above: Order Comment: Speci men Type: VENOUS BLOOD SPECIMEN Ordering Facility: [facility] Address: [address] [place] [address] Performed By: #### 2 4344-4 #### [facility] CLIA [id number] [address] [place] [address] [place] Chloride [Moles/Vol] 108 mmol/L High 97-105 [facility] Comment on above: Order Comment: Speci men Type: VENOUS BLOOD SPECIMEN Ordering Facility: [facility] Address: [address] [place] [address] Performed By: #### 2 4344-4 #### [facility] CLIA [id number] [address] [place] [address] [place] CO2 [Moles/Vol] 20 mmol/L Low 22-30 [facility] Comment on above: Order Comment: Speci men Type: VENOUS BLOOD SPECIMEN Ordering Facility: [facility] Address: [address] [place] [address] Performed By: #### 2 4344-4 #### [facility] CLIA [id number] [address] [place] [address] [place] Creatinine [Mass/Vol] 1.39 mg/dL High 0.58-0.96 [facility] Comment on above: Order Comment: Speci men Type: VENOUS BLOOD SPECIMEN Ordering Facility: [facility] Address: [address] [place] [address] Performed By: #### 2 4344-4 #### [facility] CLIA [id number] [address] [place] [address] [place] Creatinine and Glomerular filtration rate.predicted panel (S/P/Bld) 42 mL/min/1.73m??? Low >=60 [facility] Comment on above: Order Comment: [place] Type: VENOUS BLOOD SPECIMEN Ordering Facility: [facility] Address: [address] [place] [address] Result Comment: Donna mated Glomerular Filtration Rate [...] reflect actual GFR. Performed By: #### 2 4344-4 #### [facility] CLIA [id number] [address] [place] [address] [place] Glucose [Mass/Vol] 74 mg/dL Normal 74-99 [facility] Comment on above: Order Comment: Speci men Type: VENOUS BLOOD SPECIMEN Ordering Facility: [facility] Address: [address] [place] [address] Result Comment: The [place] [employer] (ADA) provides guidance for cutoff [...] Standards of Medical Care in Diabetes 2016, [place] [employer]. Diabetes Care. 2016.39(Suppl 1). Performed By: #### 2 4344-4 #### [facility] CLIA [id number] [address] [place] [address] [place] Potassium [Moles/Vol] 4.7 mmol/L Normal 3.7-5.1 [facility] Comment on above: Order Comment: Speci men Type: VENOUS BLOOD SPECIMEN Ordering Facility: [facility] Address: [address] [place] [address] Performed By: #### 2 4344-4 #### [facility] CLIA [id number] [address] [place] [address] [place] Sodium [Moles/Vol] 138 mmol/L Normal 136-144 [facility] Comment on above: Order Comment: Speci men Type: VENOUS BLOOD SPECIMEN Ordering Facility: [facility] Address: [address] [place] [address] Performed By: #### 2 4344-4 #### [facility] CLIA [id number] [address] [place] [address] [place] Urea nitrogen [Mass/Vol] 25 mg/dL High 7-21 [facility] Comment on above: Order Comment: Speci men Type: VENOUS BLOOD SPECIMEN Ordering Facility: [facility] Address: [address] [place] [address] Performed By: #### 2 4344-4 #### [facility] CLIA [id number] [address] [place] [address] [place] CBC panel Auto (Bld)on 09-01 Erythrocyte distribution width (RBC) [Ratio] 14.7 % Normal 11.5-15.0 [facility] Comment on above: Order Comment: Speci men Type: BLOOD SPECIMEN Ordering Facility: [facility] Address: [address] [place] [address] Performed By: #### 2 4321-2 #### [facility] CLIA [id number] [address] [place] [address] [place] Hematocrit (Bld) [Volume fraction] 29.4 % Low 36.0-46.0 [facility] Comment on above: Order Comment: Speci men Type: BLOOD SPECIMEN Ordering Facility: [facility] Address: [address] [place] [address] Performed By: #### 2 4321-2 #### [facility] CLIA [id number] [address] [place] [address] [place] Hemoglobin (Bld) [Mass/Vol] 9.1 g/dL Low 11.5-15.5 [facility] Comment on above: Order Comment: Speci men Type: BLOOD SPECIMEN Ordering Facility: [facility] Address: [address] [place] [address] Performed By: #### 2 4321-2 #### [facility] CLIA [id number] [address] [place] [address] [place] MCH (RBC) [Entitic mass] 24.4 pg Low 26.0-34.0 [facility] Comment on above: Order Comment: Speci men Type: BLOOD SPECIMEN Ordering Facility: [facility] Address: [address] [place] [address] Performed By: #### 2 4321-2 #### [facility] CLIA [id number] [address] [place] [address] [place] MCHC (RBC) [Mass/Vol] 31.0 g/dL Normal 30.5-36.0 [facility] Comment on above: Order Comment: Speci men Type: BLOOD SPECIMEN Ordering Facility: [facility] Address: [address] [place] [address] Performed By: #### 2 4321-2 #### [facility] CLIA [id number] [address] [place] [address] [place] MCV (RBC) [Entitic vol] 78.8 fL Low 80.0-100.0 [facility] Comment on above: Order Comment: Speci men Type: BLOOD SPECIMEN Ordering Facility: [facility] Address: [address] [place] [address] Performed By: #### 2 4321-2 #### [facility] CLIA [id number] [address] [place] [address] [place] Nucleated RBC (Bld) [#/Vol] 10*3/uL Normal <0.01 [facility] Comment on above: Order Comment: Speci men Type: BLOOD SPECIMEN Ordering Facility: [facility] Address: [address] [place] [address] Performed By: #### 2 4321-2 #### [facility] CLIA [id number] [place] [address] [place] Platelet mean volume (Bld) [Entitic vol] 10.8 fL Normal 9.0-12.7 [facility] Comment on above: Order Comment: Speci men Type: BLOOD SPECIMEN Ordering Facility: [facility] Address: [address] [place] [address] Performed By: #### 2 4321-2 #### [facility] CLIA [id number] [address] [place] [address] [place] Platelets (Bld) [#/Vol] 275 10*3/uL Normal 150-400 [facility] Comment on above: Order Comment: Speci men Type: BLOOD SPECIMEN Ordering Facility: [facility] Address: [address] [place] [address] Performed By: #### 2 4321-2 #### [facility] CLIA [id number] [address] [place] [address] [place] RBC (Bld) [#/Vol] 3.73 10*6/uL Low 3.90-5.20 [facility] Comment on above: Order Comment: Speci men Type: BLOOD SPECIMEN Ordering Facility: [facility] Address: [address] [place] [address] Performed By: #### 2 4321-2 #### [facility] CLIA [id number] [place] [address] [place] WBC (Bld) [#/Vol] 7.48 10*3/uL Normal 3.70-11.00 [facility] Comment on above: Order Comment: Speci men Type: BLOOD SPECIMEN Ordering Facility: [facility] Address: [address] [place] [address] Performed By: #### 2 4321-2 #### [facility] CLIA [id number] [address] [place] [address] [place] CONSULTon 09-01-2023 CONSULT HNO ID: [id number] Author: MAR ROUSSEAU RN Service: ? Author Type: Registered Nurse Type: Consults Filed: 09/01/2023 10:46 Note Text: ANCILLARY WOUND CARE PROGRESS NOTE SERVICE DATE: 09/01/2023 SERVICE TIME: 1030 RE: left foot wound Podiatry service was consulted for the pt's left foot. Please follow Podiatry recommendations. Wound Team will sign off. SIGNATURE: Mar Rousseau RN PATIENT NAME: Aislinn Wheeler DATE: September 01, 2023 TIME: 10:44 AM PAGER/CONTACT #: Normal [facility] Magnesium SerPl-mCncon 09-01 Magnesium [Mass/Vol] 1.5 mg/dL Low 1.7-2.3 [facility] Comment on above: Order Comment: Speci men Type: VENOUS BLOOD SPECIMEN Ordering Facility: [facility] Address: [address] [place] [address] Performed By: #### 2 4344-4 #### [facility] CLIA [id number] [address] [place] [address] [place] URINALYSIS, REFLEX MICROSCOP ICon 09-01-2023 Bacteria LM.HPF (Urine sed) [#/Area] Few Abnormal None Seen [facility] Comment on above: Order Comment: Speci men Type: VENOUS BLOOD SPECIMEN Ordering Facility: [facility] Address: [address] [place] [address] Performed By: #### 2 4344-4 #### [facility] CLIA [id number] [address] [place] [address] [place] Bilirubin Ql (U) Negative Normal Negative [facility] Comment on above: Order Comment: Speci men Type: VENOUS BLOOD SPECIMEN Ordering Facility: [facility] Address: [address] [place] [address] Performed By: #### 2 4344-4 #### [facility] CLIA [id number] [address] [place] [address] [place] Clarity (Unsp spec) Turbid Abnormal Clear [facility] Comment on above: Order Comment: Speci men Type: VENOUS BLOOD SPECIMEN Ordering Facility: [facility] Address: [address] [place] [address] Performed By: #### 2 4344-4 #### [facility] CLIA [id number] [address] [place] [address] [place] Color (U) Light Yellow Normal Yellow [facility] Comment on above: Order Comment: Speci men Type: VENOUS BLOOD SPECIMEN Ordering Facility: [facility] Address: [address] [place] [address] Performed By: #### 2 4344-4 #### [facility] CLIA [id number] [address] [place] [address] [place] Epithelial cells LM.HPF (Urine sed) [#/Area] Few Normal [facility] Comment on above: Order Comment: Speci men Type: VENOUS BLOOD SPECIMEN Ordering Facility: [facility] Address: [address] [place] [address] Performed By: #### 2 4344-4 #### [facility] CLIA [id number] [address] [place] [address] [place] Glucose Test strip (U) [Mass/Vol] Negative Normal Trace, Negative [facility] Comment on above: Order Comment: Speci men Type: VENOUS BLOOD SPECIMEN Ordering Facility: [facility] Address: [address] [place] [address] Performed By: #### 2 4344-4 #### [facility] CLIA [id number] [address] [place] [address] [place] Hemoglobin Ql (U) 1+ Abnormal Negative, Trace [facility] Comment on above: Order Comment: Speci men Type: VENOUS BLOOD SPECIMEN Ordering Facility: [facility] Address: [address] [place] [address] Performed By: #### 2 4344-4 #### [facility] CLIA [id number] [address] [place], [place] [id number] [place] Ketones Ql (U) Negative Normal Negative, Trace [facility] Comment on above: Order Comment: Speci men Type: VENOUS BLOOD SPECIMEN Ordering Facility: [facility] Address: [address] [place] [address] Performed By: #### 2 4344-4 #### [facility] CLIA [id number] [address] [place] [address] [place] Leukocyte esterase Test strip Ql (U) 500 Yuan/uL Abnormal Negative, 25 Yuan/uL [facility] Comment on above: Order Comment: Speci men Type: VENOUS BLOOD SPECIMEN Ordering Facility: [facility] Address: [address] [place] [address] Performed By: #### 2 4344-4 #### [facility] CLIA [id number] [address] [place] [address] [place] Nitrite Ql (U) Negative Normal Negative [facility] Comment on above: Order Comment: Speci men Type: VENOUS BLOOD SPECIMEN Ordering Facility: [facility] Address: [address] [place] [address] Performed By: #### 2 4344-4 #### [facility] CLIA [id number] [address] [place] [address] [place] pH (U) 6.0 [pH] Normal 5.0-8.0 [facility] Comment on above: Order Comment: Speci men Type: VENOUS BLOOD SPECIMEN Ordering Facility: [facility] Address: [address] [place] [address] Performed By: #### 2 4344-4 #### [facility] CLIA [id number] [address] [place] [address] [place] Protein (U) [Mass/Vol] 1+ Abnormal Trace, Negative [facility] Comment on above: Order Comment: Speci men Type: VENOUS BLOOD SPECIMEN Ordering Facility: [facility] Address: [address] [place] [address] Performed By: #### 2 4344-4 #### [facility] CLIA [id number] [address] [place] [address] [place] RBC LM.HPF (Urine sed) [#/Area] /[HPF] Abnormal 0-3 /HPF [facility] Comment on above: Order Comment: Speci men Type: VENOUS BLOOD SPECIMEN Ordering Facility: [facility] Address: [address] [place] [address] Performed By: #### 2 4344-4 #### [facility] CLIA [id number] [address] [place] [address] [place] Specific gravity (U) [Rel density] 1.011 Normal 1.005-1.030 [facility] Comment on above: Order Comment: Speci men Type: VENOUS BLOOD SPECIMEN Ordering Facility: [facility] Address: [address] [place] [address] Performed By: #### 2 4344-4 #### [facility] CLIA [id number] [address] [place] [address] Urobilinogen Ql (U) Negative Normal Negative [facility] Comment on above: Order Comment: Speci men Type: VENOUS BLOOD SPECIMEN Ordering Facility: [facility] Address: [address] [place] [address] Performed By: #### 2 4344-4 #### [facility] CLIA [id number] [address] [place] [address] [place] WBC LM.HPF (Urine sed) [#/Area] /[HPF] Abnormal 0-5 /HPF [facility] Comment on above: Order Comment: Speci men Type: VENOUS BLOOD SPECIMEN Ordering Facility: [facility] Address: [address] [place] [address] Performed By: #### 2 4344-4 #### [facility] CLIA [id number] [address] [place] [address] [place] ALLIED HEALTHon 08-31-2023 ALLIED HEALTH HNO ID: [id number] Author: RASHAD LITTLE RT(R) Service: ? Author Type: Technologist Type: Allied Health Filed: 08/31/2023 04:44 Note Text: Radiology Service Progress Note PATIENT NAME: Aislinn Wheeler DATE OF SERVICE: August 31, 2023 TIME: 4:44 AM PATIENT IDENTITY VERIFICATION COMPLETED USING TWO (2) [...] IMPLANT DATA REVIEWED: Not Applicable RADIOLOGY DEPARTMENT: General X-ray: Exam(s) Completed: Chest X-Ray Lower Extremity X-Ray(s): Foot, Left PERIPHERAL IV DATA: Not applicable SIGNED BY: RT Chriss(R) August 31, 2023 4:44 AM Normal [facility] Bacteria Bld Culton 08-31-19 24 Bacteria identified Cx Nom (Bld) CULTURE, BLOOD: No growth 5 days Normal [facility] Comment on above: Performed By: #### 6 00-7 #### [facility] CLIA [id number] [address] [place] Performed By: #### 6 00-7 ####[facility] [id number] [place] [address] [place] Bacteria Ur Culton 4 Bacteria identified Cx Nom (U) ORGANISM ID: 1 >=100,000 CFU/ml Mixed microbiota No further workup. Mixed microbiota can be due to???urine???contaminat ion with skin bacteria at time of collection or presence of a long-term urinary catheter. If a new culture is needed, please consider re-education of the patient on proper midstream collection technique or straight catheterization for???urine???collectio n. Normal [facility] Center Comment on above: Performed By: #### 6 30-4 #### [facility] CLIA [id number] [address] [place] CBC W Auto Differential pane l (Bld)on 08-31-2023 Basophils (Bld) [#/Vol] 0.03 10*3/uL Normal <0.11 [facility] Comment on above: Order Comment: Speci men Type: VENOUS BLOOD SPECIMEN Ordering Facility: [facility] Address: [address] [place] [address] Performed By: #### 2 4344-4 #### [facility] CLIA [id number] [address] [place] [address] [place] Basophils/100 WBC (Bld) 0.3 % Normal [facility] Comment on above: Order Comment: Speci men Type: VENOUS BLOOD SPECIMEN Ordering Facility: [facility] Address: [address] [place] [address] Performed By: #### 2 4344-4 #### [facility] CLIA [id number] [address] [place] [address] [place] Differential cell count method Nom (Bld) Auto Normal [facility] Comment on above: Order Comment: Speci men Type: VENOUS BLOOD SPECIMEN Ordering Facility: [facility] Address: [address] [place] [address] Performed By: #### 2 4344-4 #### [facility] CLIA [id number] [address] [place] [address] [place] Eosinophils (Bld) [#/Vol] 10*3/uL Normal <0.46 [facility] Comment on above: Order Comment: Speci men Type: VENOUS BLOOD SPECIMEN Ordering Facility: [facility] Address: [address] [place] [address] Performed By: #### 2 4344-4 #### [facility] CLIA [id number] [address] [place] [address] [place] Eosinophils/100 WBC (Bld) 0.1 % Normal [facility] Comment on above: Order Comment: Speci men Type: VENOUS BLOOD SPECIMEN Ordering Facility: [facility] Address: [address] [place] [address] Performed By: #### 2 4344-4 #### [facility] CLIA [id number] [address] [place] [address] [place] Erythrocyte distribution width (RBC) [Ratio] 14.5 % Normal 11.5-15.0 [facility] Comment on above: Order Comment: Speci men Type: VENOUS BLOOD SPECIMEN Ordering Facility: [facility] Address: [address] [place] [address] Performed By: #### 2 4344-4 #### [facility] CLIA [id number] [address] [place] [address] [place] Hematocrit (Bld) [Volume fraction] 31.5 % Low 36.0-46.0 [facility] Comment on above: Order Comment: Speci men Type: VENOUS BLOOD SPECIMEN Ordering Facility: [facility] Address: [address] [place] [address] Performed By: #### 2 4344-4 #### [facility] CLIA [id number] [address] [place] [address] [place] Hemoglobin (Bld) [Mass/Vol] 10.0 g/dL Low 11.5-15.5 [facility] Comment on above: Order Comment: Speci men Type: VENOUS BLOOD SPECIMEN Ordering Facility: [facility] Address: [address] [place] [address] Performed By: #### 2 4344-4 #### [facility] CLIA [id number] [address] [place] [address] [place] Immature granulocytes (Bld) [#/Vol] 0.06 10*3/uL Normal <0.10 [facility] Comment on above: Order Comment: Speci men Type: VENOUS BLOOD SPECIMEN Ordering Facility: [facility] Address: [address] [place] [address] Performed By: #### 2 4344-4 #### [facility] CLIA [id number] [address] [place] [address] [place] Immature granulocytes/100 WBC (Bld) 0.7 % Normal [facility] Comment on above: Order Comment: Speci men Type: VENOUS BLOOD SPECIMEN Ordering Facility: [facility] Address: [address] [place] [address] Performed By: #### 2 4344-4 #### [facility] CLIA [id number] [address] [place] [address] [place] Lymphocytes (Bld) [#/Vol] 1.67 10*3/uL Normal 1.00-4.00 [facility] Comment on above: Order Comment: Speci men Type: VENOUS BLOOD SPECIMEN Ordering Facility: [facility] Address: [address] [place] [address] Performed By: #### 2 4344-4 #### [facility] CLIA [id number] [address] [place] [address] [place] Lymphocytes/100 WBC (Bld) 18.8 % Normal [facility] Comment on above: Order Comment: Speci men Type: VENOUS BLOOD SPECIMEN Ordering Facility: [facility] Address: [address] [place] [address] Performed By: #### 2 4344-4 #### [facility] CLIA [id number] [address] [place] [address] [place] MCH (RBC) [Entitic mass] 24.5 pg Low 26.0-34.0 [facility] Comment on above: Order Comment: Speci men Type: VENOUS BLOOD SPECIMEN Ordering Facility: [facility] Address: [address] [place] [address] Performed By: #### 2 4344-4 #### [facility] CLIA [id number] [address] [place] [address] [place] MCHC (RBC) [Mass/Vol] 31.7 g/dL Normal 30.5-36.0 [facility] Comment on above: Order Comment: Speci men Type: VENOUS BLOOD SPECIMEN Ordering Facility: [facility] Address: [address] [place] [address] Performed By: #### 2 4344-4 #### [facility] CLIA [id number] [address] [place] [address] [place] MCV (RBC) [Entitic vol] 77.2 fL Low 80.0-100.0 [facility] Comment on above: Order Comment: Speci men Type: VENOUS BLOOD SPECIMEN Ordering Facility: [facility] Address: [address] [place] [address] Performed By: #### 2 4344-4 #### [facility] CLIA [id number] [address] [place] [address] [place] Monocytes (Bld) [#/Vol] 0.71 10*3/uL Normal <0.87 [facility] Comment on above: Order Comment: Speci men Type: VENOUS BLOOD SPECIMEN Ordering Facility: [facility] Address: [address] [place] [address] Performed By: #### 2 4344-4 #### [facility] CLIA [id number] [address] [place] [address] [place] Monocytes/100 WBC (Bld) 8.0 % Normal [facility] Comment on above: Order Comment: Speci men Type: VENOUS BLOOD SPECIMEN Ordering Facility: [facility] Address: [address] [place] [address] Performed By: #### 2 4344-4 #### [facility] CLIA [id number] [address] [place] [address] [place] Neutrophils (Bld) [#/Vol] 6.39 10*3/uL Normal 1.45-7.50 [facility] Comment on above: Order Comment: Speci men Type: VENOUS BLOOD SPECIMEN Ordering Facility: [facility] Address: [address] [place] [address] Performed By: #### 2 4344-4 #### [facility] CLIA [id number] [address] [place] [address] [place] Neutrophils/100 WBC (Bld) 72.1 % Normal [facility] Comment on above: Order Comment: Speci men Type: VENOUS BLOOD SPECIMEN Ordering Facility: [facility] Address: [address] [place] [address] Performed By: #### 2 4344-4 #### [facility] CLIA [id number] [address] [place] [address] [place] Nucleated RBC (Bld) [#/Vol] 10*3/uL Normal <0.01 [facility] Comment on above: Order Comment: Speci men Type: VENOUS BLOOD SPECIMEN Ordering Facility: [facility] Address: [address] [place] [address] Performed By: #### 2 4344-4 #### [facility] CLIA [id number] [address] [place] [address] [place] Nucleated RBC/100 WBC (Bld) [Ratio] 0.0 /100 WBC Normal [facility] Comment on above: Order Comment: Speci men Type: VENOUS BLOOD SPECIMEN Ordering Facility: [facility] Address: [address] [place] [address] Performed By: #### 2 4344-4 #### [facility] CLIA [id number] [address] [place] [address] [place] Platelet mean volume (Bld) [Entitic vol] 11.3 fL Normal 9.0-12.7 [facility] Comment on above: Order Comment: Speci men Type: VENOUS BLOOD SPECIMEN Ordering Facility: [facility] Address: [address] [place] [address] Performed By: #### 2 4344-4 #### [facility] CLIA [id number] [address] [place] [address] [place] Platelets (Bld) [#/Vol] 316 10*3/uL Normal 150-400 [facility] Comment on above: Order Comment: Speci men Type: VENOUS BLOOD SPECIMEN Ordering Facility: [facility] Address: [address] [place] [address] Performed By: #### 2 4344-4 #### [facility] CLIA [id number] [address] [place] [address] [place] RBC (Bld) [#/Vol] 4.08 10*6/uL Normal 3.90-5.20 [facility] Comment on above: Order Comment: Speci men Type: VENOUS BLOOD SPECIMEN Ordering Facility: [facility] Address: [address] [place] [address] Performed By: #### 2 4344-4 #### [facility] CLIA [id number] [address] [place] [address] [place] WBC (Bld) [#/Vol] 8.87 10*3/uL Normal 3.70-11.00 [facility] Comment on above: Order Comment: Speci men Type: VENOUS BLOOD SPECIMEN Ordering Facility: [facility] Address: [address] [place] [address] Performed By: #### 2 4344-4 #### [facility] CLIA [id number] [place] [address] [place] Comprehensive metabolic 2000 panelon 08-31-2023 Albumin [Mass/Vol] 3.7 g/dL Low 3.9-4.9 [facility] Comment on above: Order Comment: Speci men Type: BLOOD SPECIMEN Ordering Facility: [facility] Address: [address] [place] [address] Performed By: #### 2 4321-2 #### [facility] CLIA [id number] [place] [address] [place] ALP [Catalytic activity/Vol] 99 U/L Normal 34-123 [facility] Comment on above: Order Comment: Speci men Type: BLOOD SPECIMEN Ordering Facility: [facility] Address: [address] [place] [address] Performed By: #### 2 4321-2 #### [facility] CLIA [id number] [address] [place] [address] [place] ALT [Catalytic activity/Vol] U/L Low 7-38 [facility] Comment on above: Order Comment: Speci men Type: BLOOD SPECIMEN Ordering Facility: [facility] Address: [address] [place] [address] Performed By: #### 2 4321-2 #### [facility] CLIA [id number] [address] [place] [address] [place] Anion gap [Moles/Vol] 12 mmol/L Normal 9-18 [facility] Comment on above: Order Comment: Speci men Type: BLOOD SPECIMEN Ordering Facility: [facility] Address: [address] [place] [address] Performed By: #### 2 4321-2 #### [facility] CLIA [id number] [address] [place] [address] [place] AST [Catalytic activity/Vol] 7 U/L Low 13-35 [facility] Comment on above: Order Comment: Speci men Type: BLOOD SPECIMEN Ordering Facility: [facility] Address: [address] [place] [address] Performed By: #### 2 4321-2 #### [facility] CLIA [id number] [address] [place] [address] [place] Bilirubin [Mass/Vol] 0.3 mg/dL Normal 0.2-1.3 [facility] Comment on above: Order Comment: Speci men Type: BLOOD SPECIMEN Ordering Facility: [facility] Address: [address] [place] [address] Performed By: #### 2 4321-2 #### [facility] CLIA [id number] [address] [place] [address] [place] Calcium [Mass/Vol] 8.7 mg/dL Normal 8.5-10.2 [facility] Comment on above: Order Comment: Speci men Type: BLOOD SPECIMEN Ordering Facility: [facility] Address: [address] [place] [address] Performed By: #### 2 4321-2 #### [facility] CLIA [id number] [address] [place] [address] [place] Chloride [Moles/Vol] 99 mmol/L Normal 97-105 [facility] Comment on above: Order Comment: Speci men Type: BLOOD SPECIMEN Ordering Facility: [facility] Address: [address] [place] [address] Performed By: #### 2 4321-2 #### [facility] CLIA [id number] [address] [place] [address] [place] CO2 [Moles/Vol] 19 mmol/L Low 22-30 [facility] Comment on above: Order Comment: Speci men Type: BLOOD SPECIMEN Ordering Facility: [facility] Address: [address] [place] [address] Performed By: #### 2 4321-2 #### [facility] CLIA [id number] [address] [place] [address] [place] Creatinine [Mass/Vol] 2.15 mg/dL High 0.58-0.96 [facility] Comment on above: Order Comment: Speci men Type: BLOOD SPECIMEN Ordering Facility: [facility] Address: [address] [place] [address] Performed By: #### 2 4321-2 #### [facility] CLIA [id number] [address] [place] [address] [place] Creatinine and Glomerular filtration rate.predicted panel (S/P/Bld) 25 mL/min/1.73m??? Low >=60 [facility] Comment on above: Order Comment: [place] Type: BLOOD SPECIMEN Ordering Facility: [facility] Address: [address] [place] [address] Result Comment: Donna mated Glomerular Filtration Rate [...] GFR. Performed By: #### 2 4321-2 #### [facility] CLIA [id number] [place] [address] [place] Glucose [Mass/Vol] 428 mg/dL High 74-99 [facility] Comment on above: Order Comment: [place] Type: BLOOD SPECIMEN Ordering Facility: [facility] Address: [address] [place] [address] Result Comment: The [place] [employer] (ADA) provides guidance for cutoff [...] Standards of Medical Care in Diabetes 2016, [place] [employer]. Diabetes Care. 2016.39(Suppl 1). Performed By: #### 2 4321-2 #### [facility] CLIA [id number] [place] [address] [place] Potassium [Moles/Vol] 5.2 mmol/L High 3.7-5.1 [facility] Comment on above: Order Comment: Speci men Type: BLOOD SPECIMEN Ordering Facility: [facility] Address: [address] [place] [address] Performed By: #### 2 4321-2 #### [facility] CLIA [id number] [address] [place] [address] [place] Protein [Mass/Vol] 9.1 g/dL High 6.3-8.0 [facility] Comment on above: Order Comment: Speci men Type: BLOOD SPECIMEN Ordering Facility: [facility] Address: [address] [place] [address] Performed By: #### 2 4321-2 #### [facility] CLIA [id number] [address] [place] [address] [place] Sodium [Moles/Vol] 130 mmol/L Low 136-144 [facility] Comment on above: Order Comment: Speci men Type: BLOOD SPECIMEN Ordering Facility: [facility] Address: [address] [place] [address] Performed By: #### 2 4321-2 #### [facility] CLIA [id number] [address] [place] [address] [place] Urea nitrogen [Mass/Vol] 39 mg/dL High 7-21 [facility] Comment on above: Order Comment: Speci men Type: BLOOD SPECIMEN Ordering Facility: [facility] Address: [address] [place] [address] Performed By: #### 2 4321-2 #### [facility] CLIA [id number] [address] [place] [address] [place] ECG COMPLETEon 08-31-2023 ECG COMPLETE Ventricular Rate : 7 1 BPM Atrial Rate : 71 BPM P-R Interval : 166 ms QRS Duration : 80 ms Q-T Interval : 396 ms QTC Calculation(Bazett) : 431 ms Calculated P [place] : 82 degrees Calculated R [place] : 71 degrees Calculated T [place] : 48 degrees Sinus rhythm Normal ECG NO STEMI. 0752 Confirmed by MD DE LEON MICHAEL ([id number]), editor in chief THERESA SEAY ([id number]) on 08/31/2023 1:24:15 PM NAME : AISLINN WHEELER PID : [id number] : 1960 Gender : Female Race : ORD : [id number] Procedure Date : Aug 31 2023 07:16:42 Edit Date : Aug 31 2023 13:24:16 Diagnosis: Sinus rhythm Normal ECG NO STEMI. 0752 Confirmed by MD DE LEON MICHAEL ([id number]), editor in chief THERESA SEAY ([id number]) on 08/31/2023 1:24:15 PM Test Reason : Chest Pain Location : 402 : FVED fved05 Overread By : MD DE LEON MICHAEL Edited By : THERESA SEAY Referred By : , Acquired by : [id number], [facility] ECG COMPLETE Ventricular Rate : 8 8 BPM Atrial Rate : 88 BPM P-R Interval : 153 ms QRS Duration : 78 ms Q-T Interval : 370 ms QTC Calculation(Bazett) : 448 ms Calculated P [place] : 85 degrees Calculated R [place] : 69 degrees Calculated T [place] : 62 degrees Sinus rhythm Normal ECG NO STEMI. 0604 Confirmed by KASIE SANDOVAL MD ([id number]), editor in chief THERESA SEAY ([id number]) on 08/31/2023 1:02:55 PM NAME : AISLINN WHEELER PID : [id number] : 1960 Gender : Female Race : ORD : [id number] Procedure Date : Aug 31 2023 04:17:52 Edit Date : Aug 31 2023 13:02:57 Diagnosis: Sinus rhythm Normal ECG NO STEMI. 0604 Confirmed by KASIE SANDOVAL MD ([id number]), editor in chief THERESA SEAY ([id number]) on 08/31/2023 1:02:55 PM Test Reason : Arrhythmia Location : 402 : FVED fved05 Overread By : KASIE SANDOVAL MD Edited By : THERESA SEAY Referred By : , Acquired by : [id number], [facility] ED PROV NOTEon 08-31-2023 ED PROV NOTE HNO ID: [id number] Author: RAYNA RHODES PA-C Service: Emergency Medicine Author Type: Physician Centrifuge Separator Operator Type: ED Provider Notes Filed: 08/31/2023 08:06 Note Text: Attestation signed by Kasie Sandoval MD at 09/01/2023 11:55 AM Attending Note I have personally performed a face to face assessment of the patient and have reviewed the CARLOZ note. I performed a substantive portion of the visit including all aspects of the following. My miller findings include: Briefly, very pleasant 63-year-old female past medical history as documented significant for chronic pain on opiates, diabetes on insulin, neurogenic bladder, CKD presenting for evaluation of fever and chills with concern for an ulcerative infection. She states that she has a chronic ulcer on her left foot and was seen by podiatry earlier today. Noted to be hypotensive at that time and they recommended evaluation in the emergency department. Chronic incontinence from overflow. States has been somewhat worse. No hematuria. Denies chest pain, shortness of breath endorses occasional cough. On exam she is resting in bed overall nontoxic-appearing. Noted to be febrile. Regular rate and rhythm. Clear to auscultation bilaterally no respiratory distress. Abdomen soft nontender nondistended. No CVA tenderness. She does have a chronic ulcer that overall actually appears noninfectious. No focal neurologic deficits. Overall I have a low suspicion for her ulcer being source of infection. Given her fever and borderline tachycardia sepsis was considered though lactate was not significantly elevated which is overall quite encouraging doubt severe sepsis currently. No significant leukocytosis. Chronic anemia does not need emergent intervention. CMP shows hyperglycemia no evidence of DKA. Slight hyperkalemia which can be corrected though no significant EKG changes requiring calcium currently. She does have very slight peaked T's though previous EKGs look similar and I do not believe is due to her hyperkalemia today. However her urine does appear infectious which will be treated empirically and she appears to have an ANATOLIY. Given this do believe she would benefit from admission for further management at this time. She was agreeable, ultimately discussed with medical team who agreed to meet the patient. Repeat potassium which was collected at the request of the hospitalist team was encouraging. Awaiting admission hemodynamically stable condition. Clinical Impressions as of 09/01/23 1151 Type 2 diabetes mellitus with hyperglycemia, with long-term current use of insulin (HCC) Diabetic ulcer of left midfoot associated with type 2 diabetes mellitus, limited to breakdown of skin (HCC) Fever, unspecified fever cause Neurogenic bladder ANATOLIY (acute kidney injury) (HCC) Urinary tract infection without hematuria, site unspecified Hyperkalemia Critical Care I spent a total of 35 minutes of critical care time in the evaluation and management of this patient. This was necessary to treat or prevent deterioration of the following condition(s): Severe metabolic abnormality, which the patient had and/or has a high probability of suddenly developing. The patient received IV Fluids and Correction of Electrolyte Abnormality during the time that critical care was provided.I discussed the plan of care with the CARLOZ and agree with the findings documented. I provided a substantive portion of the care and the majority of the critical care time. Critical care time excludes separately billed procedures. Kasie Sandoval MD Signature: Kasie Sandoval MD Date: 09/01/2023 Time: 11:51 AM ED Provider Note Patient Name: Aislinn Wheeler : 1960 SERVICE DATE: 08/30/23 History Patient presents with: Diabetic Foot Ulcer: Sole of left foot. Pt states she saw her solder deposit operator and was directed to come to the ED for possible infection. Urinary Problem: Frequency and incontinence. Concern for UTI Fever 63-year-old female who has history of chronic pain on opiate regimen, insulin-dependent diabetes, CKD, neurogenic bladder who by review of urology notes should be doing intermittent straight cath but has not received any supplies to do this, previous kidney stones, renal cyst requiring surgical removal, asthma, and previous TIA presents to the emergency department for evaluation of fever, chills, and concern for diabetic foot infection versus UTI as source for her illness. She has an ulcer to plantar aspect of fifth MCP region of left foot. It has been there for prolonged duration and she was seen by podiatry earlier today. She was noted to be hypotensive and they referred her to the emergency department. She reports associated fatigue and malaise. She has had a rarely occurring (more content not included)... Normal [facility] FLUABV+SARS-CoV-2+RSV Pnl Re sp ADRIEL+probeon 08-31-2023 FLUABV+SARS-CoV-2+RS V Pnl Resp ADRIEL+probe COVID 19 RESULT: Not detected The method used is RT-PCR or an equivalent NAAT method. Reference Range(the expected result in uninfected individuals): Not detected INFLUENZA A PCR: Not detected INFLUENZA B PCR: Not detected RSV PCR: Not detected Normal [facility] Comment on above: Performed By: #### 9 5941-1 ####[id number] [place] [address] [place] Gas and Carbon monoxide pane l (BldV)on 08-31-2023 BASE DEFICIT, VENOUS -5 mmol/L Low -2-0 [facility] Comment on above: Order Comment: [place] Type: VENOUS BLOOD SPECIMEN Ordering Facility: [facility] Address: [address] [place] [address] Performed By: #### 2 4344-4 #### [facility] CLIA [id number] [address] [place] [address] [place] Body temperature 100.04 [degF] Normal [facility] Comment on above: Order Comment: [place] Type: VENOUS BLOOD SPECIMEN Ordering Facility: [facility] Address: [address] [place] [address] Performed By: #### 2 4344-4 #### [facility] CLIA [id number] [address] [place] [address] [place] Calcium.ionized (Bld) [Mass/Vol] 1.08 mmol/L Normal 1.08-1.30 [facility] Comment on above: Order Comment: [place] Type: VENOUS BLOOD SPECIMEN Ordering Facility: [facility] Address: [address] [place] [address] Performed By: #### 2 4344-4 #### [facility] CLIA [id number] [address] [place] [address] [place] Calcium.ionized adjusted to pH 7.4 (BldA) [Moles/Vol] 1.06 mmol/L Low 1.08-1.30 [facility] Comment on above: Order Comment: Speci men Type: VENOUS BLOOD SPECIMEN Ordering Facility: [facility] Address: [address] [place] [address] Performed By: #### 2 4344-4 #### [facility] CLIA [id number] [address] [place] [address] [place] Carboxyhemoglobin (BldV) [Mass fraction] 3.8 % High 0.0-2.0 [facility] Comment on above: Order Comment: Speci men Type: VENOUS BLOOD SPECIMEN Ordering Facility: [facility] Address: [address] [place] [address] Result Comment: Carb oxyhemoglobin Reference Range for Smokers: 2.0-8.0% Performed By: #### 2 4344-4 #### [facility] CLIA [id number] [address] [place] [address] [place] Chloride [Moles/Vol] 106 mmol/L High 97-105 [facility] Comment on above: Order Comment: Speci men Type: VENOUS BLOOD SPECIMEN Ordering Facility: [facility] Address: [address] [place] [address] Performed By: #### 2 4344-4 #### [facility] CLIA [id number] [address] [place] [address] [place] CO2 (BldV) [Partial pressure] 35 mm[Hg] Low 42-55 [facility] Comment on above: Order Comment: Speci men Type: VENOUS BLOOD SPECIMEN Ordering Facility: [facility] Address: [address] [place] [address] Performed By: #### 2 4344-4 #### [facility] CLIA [id number] [address] [place] [address] [place] CO2 adjusted to patient's actual temperature (BldV) [Partial pressure] Normal [facility] Comment on above: Order Comment: Speci men Type: VENOUS BLOOD SPECIMEN Ordering Facility: [facility] Address: [address] [place] [address] Performed By: #### 2 4344-4 #### [facility] CLIA [id number] [place] [address] [place] Glucose [Mass/Vol] 460 mg/dL High 60-105 [facility] Comment on above: Order Comment: Speci men Type: VENOUS BLOOD SPECIMEN Ordering Facility: [facility] Address: [address] [place] [address] Performed By: #### 2 4344-4 #### [facility] CLIA [id number] [address] [place] [address] [place] HCO3 (Bld) [Moles/Vol] 19 mmol/L Low 24-28 [facility] Comment on above: Order Comment: Speci men Type: VENOUS BLOOD SPECIMEN Ordering Facility: [facility] Address: [address] [place] [address] Performed By: #### 2 4344-4 #### [facility] CLIA [id number] [address] [place] [address] [place] Hematocrit (Bld) [Volume fraction] 29.7 % Low 36.0-46.0 [facility] Comment on above: Order Comment: Speci men Type: VENOUS BLOOD SPECIMEN Ordering Facility: [facility] Address: [address] [place] [address] Performed By: #### 2 4344-4 #### [facility] CLIA [id number] [address] [place] [address] [place] Hemoglobin (Bld) [Mass/Vol] 9.6 g/dL Low 11.5-15.5 [facility] Comment on above: Order Comment: Speci men Type: VENOUS BLOOD SPECIMEN Ordering Facility: [facility] Address: [address] [place] [address] Performed By: #### 2 4344-4 #### [facility] CLIA [id number] [address] [place] [address] [place] Lactate [Moles/Vol] 1.1 mmol/L Normal 0.5-2.2 [facility] Comment on above: Order Comment: Speci men Type: VENOUS BLOOD SPECIMEN Ordering Facility: [facility] Address: [address] [place] [address] Performed By: #### 2 4344-4 #### [facility] CLIA [id number] [address] [place] [address] [place] Methemoglobin (Bld) [Mass fraction] 1.1 % Normal 0.0-1.5 [facility] Comment on above: Order Comment: Speci men Type: VENOUS BLOOD SPECIMEN Ordering Facility: [facility] Address: [address] [place] [address] Performed By: #### 2 4344-4 #### [facility] CLIA [id number] [address] [place] [address] [place] O2 THERAPY RA=Room Air Normal [facility] Comment on above: Order Comment: Speci men Type: VENOUS BLOOD SPECIMEN Ordering Facility: [facility] Address: [address] [place] [address] Performed By: #### 2 4344-4 #### [facility] CLIA [id number] [address] [place] [address] [place] Oxygen (BldV) [Partial pressure] 118 mm[Hg] High 35-45 [facility] Comment on above: Order Comment: Speci men Type: VENOUS BLOOD SPECIMEN Ordering Facility: [facility] Address: [address] [place] [address] Performed By: #### 2 4344-4 #### [facility] CLIA [id number] [address] [place] [address] [place] Oxygen adjusted to patient's actual temperature (BldV) [Partial pressure] Normal [facility] Comment on above: Order Comment: Speci men Type: VENOUS BLOOD SPECIMEN Ordering Facility: [facility] Address: [address] [place] [address] Performed By: #### 2 4344-4 #### [facility] CLIA [id number] [address] [place] [address] [place] Oxygen saturation in Venous blood 99 % High 60-85 [facility] Comment on above: Order Comment: Speci men Type: VENOUS BLOOD SPECIMEN Ordering Facility: [facility] Address: [address] [place] [address] Performed By: #### 2 4344-4 #### [facility] CLIA [id number] [place] [address] [place] Oxyhemoglobin (BldV) [Mass fraction] 94 % High 60-85 [facility] Comment on above: Order Comment: Speci men Type: VENOUS BLOOD SPECIMEN Ordering Facility: [facility] Address: [address] [place] [address] Performed By: #### 2 4344-4 #### [facility] CLIA [id number] [address] [place] [address] [place] pH (BldV) 7.37 [pH] Normal 7.32-7.42 [facility] Comment on above: Order Comment: Speci men Type: VENOUS BLOOD SPECIMEN Ordering Facility: [facility] Address: [address] [place] [address] Performed By: #### 2 4344-4 #### [facility] CLIA [id number] [address] [place] [address] [place] pH adjusted to patient's actual temperature (BldV) Normal [facility] Comment on above: Order Comment: Speci men Type: VENOUS BLOOD SPECIMEN Ordering Facility: [facility] Address: [address] [place] [address] Performed By: #### 2 4344-4 #### [facility] CLIA [id number] [address] [place] [address] [place] Potassium [Moles/Vol] 5.3 mmol/L High 3.5-5.0 [facility] Comment on above: Order Comment: Speci men Type: VENOUS BLOOD SPECIMEN Ordering Facility: [facility] Address: [address] [place] [address] Performed By: #### 2 4344-4 #### [facility] CLIA [id number] [address] [place] [address] [place] Sodium [Moles/Vol] 133 mmol/L Low 136-144 [facility] Comment on above: Order Comment: Speci men Type: VENOUS BLOOD SPECIMEN Ordering Facility: [facility] Address: [address] [place] [address] Performed By: #### 2 4344-4 #### [facility] [id number] [address] [place] [address] [place] HISTORY PHYSICALon HISTORY PHYSICAL HNO ID: [id number] Author: ANTHONY BARROW MD Service: Hospital Medicine Author Type: Physician Type: H&P Filed: 08/31/2023 13:12 Note Text: HISTORY AND PHYSICAL EXAMINATION SERVICE DATE: 08/31/2023 SERVICE TIME: 11:03 AM PRIMARY CARE PHYSICIAN: Latosha Olmstead Subjective CHIEF COMPLAINT: HPI: 63-year-old female who has history of chronic pain on opiate regimen, insulin-dependent diabetes, CKD, neurogenic bladder who by review of urology notes should be doing intermittent straight cath but has not received any supplies to do this, previous kidney stones, renal cyst requiring surgical removal, asthma, and previous TIA Came into the ER with multiple complaints left foot ulcer that patient was seen solder deposit operator as outpatient for and advised her to come to the hospital for not healing, also patient mention having increased urinary frequency incontinence and burning, did mention having chills no fever, denies any abdominal pain no flank pain no chest pain or shortness of breath no nausea or vomiting, patient did mention that the ulcer on her foot has been there for some time not sure when it started FUNCTIONAL STATUS: Independent PAST MEDICAL HISTORY Diagnosis Date Anemia Asthma [...] Onset Difficulty with anesthesia No Family History Social History Tobacco Use Smoking status: Never Smokeless tobacco: Never Vaping Use Vaping Use: Never used Substance Use Topics Alcohol use: Yes Comment: rarely--holiday or special occ Drug use: Never (Not in a hospital admission) ALLERGIES Allergen Reactions Latex Rash Added based on information entered during case entry, please review and add reactions, type, and severity as needed COMPLETE REVIEW OF SYSTEMS: Complete 10 Systems were reviewed and were negative except what was mentioned in HPI above. Objective PHYSICAL EXAM: Physical Exam Performed: GENERAL: Alert, no distress, cooperative SKIN: Skin color, texture, turgor normal. No rashes or lesions. EYES: PERRLA, EOMI EARS: External ears normal, canals clear NOSE: Nares normal. Septum midline. NECK: No jugulovenous distention, Supple LUNGS: Lungs clear to auscultation CARDIAC: Normal S1 and S2; no rubs,or gallops ABDOMEN: Abdomen soft, non-tender, BS normal EXTREMITIES: left foot ulcer on the outer sole 2 by 3 cm with mild redness around it NEURO: Cranial nerves II-XII intact PULSES: 2+ radial, 2+ carotid BP 111/67 Pulse 68 Temp (Src) 100.1 (Oral) Resp 12 Ht 5' 0 (1.52m) Wt 125 lb (56.7kg) SpO2 94% BMI 24.41 kg/(m2). O2 Therapy: Room Air DATA: Diagnostic tests reviewed for today's visit: Most recent labs and imaging results. CBC: Recent Labs 08/31/23 0358 WBC 8.87 RBC 4.08 HB 10.0* HCT 31.5* PLT 316 MCV 77.2* MCH 24.5* MPV 11.3 Coags: No results for input(s): PT , INR , APTT in the last 24 hours. CMP: Recent Labs 08/31/23 0736 08/31/23 0358 NA -- 130* K 4.6 5.2* CHLOR -- 99 CO2 -- 19* BUN -- 39* CREAT -- 2.15* GLUC -- 428* TPROT -- 9.1* CA -- 8.7 TBILI -- 0.3 ALKPHOS -- 99 ALT -- <5* AST -- 7* ANION -- 12 Assessment/Plan ANATOLIY (acute kidney injury)/ mild hyperkalemia /pseudohyponatremia most likely prerenal with severe hyperglycemia with forced diuresis will give the patient IV fluids hydration continue to monitor kidney function while hospitalized. Diabetic foot ulcer Left left foot x-ray showed focal lucency associated with the lateral fifth metatarsal. This could reflect a radiographic manifestation of osteomyelitis on IV Rocephin will consult podiatry for further recommendation and management. UTI blood cultures drawn in the ER, urine culture pending admission IV Rocephin continue to monitor. Insulin-dependent diabetes with hyperglycemia the patient on Lantus and insulin sliding scale. Neurogenic bladder with retention requiring Chaves in the ER supposed to be on straight catheter recent urology note. Chronic pain on Lyrica and narcotic prescription will continue. Chronic anemia at baseline will continue to monitor. Medication and Non-Pharmacologic VTE Prophylaxis/Anticoagula nts 08/31/23 1115 activity - mobilize patient (wy,sc) VTE Prophylaxis: VTE prophylaxis appropriate SIGNATURE: Anthony Barrow MD PATIENT NAME: Aislinn Wheeler DATE: August 31, 2023 TIME: 11:03 AM PAGER/CONTACT #: Normal [facility] KETONES/ACETONE/BHBon 2023 Beta hydroxybutyrate [Moles/Vol] 0.50 mmol/L High <0.28 [facility] Comment on above: Order Comment: Speci men Type: BLOOD SPECIMEN Ordering Facility: [facility] Address: [address] [place] [address] Performed By: #### 2 4321-2 #### [facility] CLIA [id number] [address] [place] [address] [place] POTASSIUM BLDon 08-31-2023 Potassium [Moles/Vol] 4.6 mmol/L Normal 3.7-5.1 [facility] Comment on above: Order Comment: Speci men Type: BLOOD SPECIMEN Ordering Facility: [facility] Address: [address] [place] [address] Performed By: #### 2 4321-2 #### [facility] CLIA [id number] [address] [place] [address] [place] SEPSIS LACTATEon 08-31-2023 Lactate [Moles/Vol] 1.2 mmol/L Normal 0.0-2.0 [facility] Comment on above: Order Comment: Speci men Type: VENOUS BLOOD SPECIMEN Ordering Facility: [facility] Address: [address] [place] [address] Performed By: #### 2 4344-4 #### [facility] CLIA [id number] [address] [place] [address] [place] Urinalysis complete panel (U )on 08-31-2023 Bacteria LM.HPF (Urine sed) [#/Area] Many Abnormal None Seen [facility] Comment on above: Order Comment: Speci men Type: URINE SPECIMEN Ordering Facility: [facility] Address: [address] [place] [address] Performed By: #### 2 4356-8 #### [facility] CLIA [id number] [place] [address] [place] Bilirubin Ql (U) Negative Normal Negative [facility] Comment on above: Order Comment: Speci men Type: URINE SPECIMEN Ordering Facility: [facility] Address: [address] [place] [address] Performed By: #### 2 4356-8 #### [facility] CLIA [id number] [address] [place] [address] [place] Clarity (Unsp spec) Turbid Abnormal Clear [facility] Comment on above: Order Comment: Speci men Type: URINE SPECIMEN Ordering Facility: [facility] Address: [address] [place] [address] Performed By: #### 2 4356-8 #### [facility] CLIA [id number] [address] [place] [address] [place] Color (U) Light Yellow Normal Yellow [facility] Comment on above: Order Comment: Speci men Type: URINE SPECIMEN Ordering Facility: [facility] Address: [address] [place] [address] Performed By: #### 2 4356-8 #### [facility] CLIA [id number] [address] [place] [address] [place] Glucose Test strip (U) [Mass/Vol] 4+ Abnormal Trace, Negative [facility] Comment on above: Order Comment: Speci men Type: URINE SPECIMEN Ordering Facility: [facility] Address: [address] [place] [address] Performed By: #### 2 4356-8 #### [facility] CLIA [id number] [address] [place] [address] [place] Hemoglobin Ql (U) Trace Normal Negative, Trace [facility] Comment on above: Order Comment: Speci men Type: URINE SPECIMEN Ordering Facility: [facility] Address: [address] [place] [address] Performed By: #### 2 4356-8 #### [facility] CLIA [id number] [address] [place] [address] [place] Ketones Ql (U) Negative Normal Negative, Trace [facility] Comment on above: Order Comment: Speci men Type: URINE SPECIMEN Ordering Facility: [facility] Address: [address] [place] [address] Performed By: #### 2 4356-8 #### [facility] CLIA [id number] [address] [place] [address] Leukocyte esterase Test strip Ql (U) 500 Yuan/uL Abnormal Negative, 25 Yuan/uL [facility] Comment on above: Order Comment: Speci men Type: URINE SPECIMEN Ordering Facility: [facility] Address: [address] [place] [address] Performed By: #### 2 4356-8 #### [facility] CLIA [id number] [address] [place] [address] [place] Nitrite Ql (U) Negative Normal Negative [facility] Comment on above: Order Comment: Speci men Type: URINE SPECIMEN Ordering Facility: [facility] Address: [address] [place] [address] Performed By: #### 2 4356-8 #### [facility] CLIA [id number] [address] [place] [address] [place] pH (U) 6.0 [pH] Normal 5.0-8.0 [facility] Comment on above: Order Comment: Speci men Type: URINE SPECIMEN Ordering Facility: [facility] Address: [address] [place] [address] Performed By: #### 2 4356-8 #### [facility] CLIA [id number] [address] [place] [address] [place] Protein (U) [Mass/Vol] 1+ Abnormal Trace, Negative [facility] Comment on above: Order Comment: Speci men Type: URINE SPECIMEN Ordering Facility: [facility] Address: [address] [place] [address] Performed By: #### 2 4356-8 #### [facility] CLIA [id number] [address] [place] [address] [place] RBC LM.HPF (Urine sed) [#/Area] 3-5 /HPF Abnormal 0-3 /HPF [facility] Comment on above: Order Comment: Speci men Type: URINE SPECIMEN Ordering Facility: [facility] Address: [address] [place] [address] Performed By: #### 2 4356-8 #### [facility] CLIA [id number] [address] [place] [address] [place] Specific gravity (U) [Rel density] 1.017 Normal 1.005-1.030 [facility] Comment on above: Order Comment: Speci men Type: URINE SPECIMEN Ordering Facility: [facility] Address: [address] [place] [address] Performed By: #### 2 4356-8 #### [facility] CLIA [id number] [address] [place] [address] [place] Urobilinogen Ql (U) Negative Normal Negative [facility] Comment on above: Order Comment: Speci men Type: URINE SPECIMEN Ordering Facility: [facility] Address: [address] [place] [address] Performed By: #### 2 4356-8 #### [facility] CLIA [id number] [address] [place] [address] [place] WBC LM.HPF (Urine sed) [#/Area] /[HPF] Abnormal 0-5 /HPF [facility] Comment on above: Order Comment: Speci men Type: URINE SPECIMEN Ordering Facility: [facility] Address: [address] [place] [address] Performed By: #### 2 4356-8 #### [facility] CLIA [id number] [address] [place] [address] [place] XR CHEST 1V FRONTAL PORTon 0 08-31-2023 XR CHEST 1V FRONTAL PORT * * *Final Report* * * DATE OF EXAM: Aug 31 2023 4:46AM FVX [id number] - XR CHEST 1V FRONTAL PORT / PROCEDURE REASON: Fatigue and malaise * * * * Physician Interpretation * * * * EXAMINATION: CHEST RADIOGRAPH (PORTABLE SINGLE VIEW AP) EXAMINATION: CHEST RADIOGRAPH (SINGLE VIEW AP OR PA) CLINICAL HISTORY: Fatigue and malaise, Fatigue and malaise (accession [id number]), Osteomyelitis (accession [id number]) MQ: XC1_5 Comparison: CT 01/17/2021, radiograph 01/17/2021 RESULT: Lines, tubes, and devices: None. Lungs and pleura: No suspicious focal consolidation. No overt pulmonary edema. No large effusion. No pneumothorax. Cardiomediastinal silhouette: Normal cardiomediastinal silhouette. Other: No acute skeletal finding. IMPRESSION: No acute radiographic abnormality. AP, LATERAL, OBLIQUE VIEWS OF THE LEFT FOOT CLINICAL HISTORY: Mid foot ulceration; Concern for osteomyelitis COMPARISONS: None. FINDINGS: First transmetatarsal amputation. Chronic deformities of second through fifth metatarsals. An area of relative lucency is seen in association with a chronic callus at the distal fifth metatarsal. No soft tissue gas or radiodense foreign body. Partially threaded screws span the distal tibia, without hardware fracture. IMPRESSION: Focal lucency associated with the lateral fifth metatarsal. This could reflect a radiographic manifestation of osteomyelitis. Correlate with site of reported ulceration. A dedicated MRI of the foot can be performed for increased sensitivity, as clinically warranted. [employer]: [employer] Transcribe Date/Time: Aug 31 2023 4:46A Dictated by : TAURUS MORTON MD This examination was interpreted and the report reviewed and electronically signed by: TAURUS MORTON MD on Aug 31 2023 4:51AM EST [id number] Normal [facility] XR FOOT 3V AP/LAT/OBL LTon 0 08-31-2023 XR FOOT 3V AP/LAT/OBL LT * * *Final Report* * * DATE OF EXAM: Aug 31 2023 4:46AM FVX [id number] - XR FOOT 3V AP/LAT/OBL LT / PROCEDURE REASON: Osteomyelitis * * * * Physician Interpretation * * * * EXAMINATION: CHEST RADIOGRAPH (PORTABLE SINGLE VIEW AP) EXAMINATION: CHEST RADIOGRAPH (SINGLE VIEW AP OR PA) CLINICAL HISTORY: Fatigue and malaise, Fatigue and malaise (accession [id number]), Osteomyelitis (accession [id number]) MQ: XC1_5 Comparison: CT 01/17/2021, radiograph 01/17/2021 RESULT: Lines, tubes, and devices: None. Lungs and pleura: No suspicious focal consolidation. No overt pulmonary edema. No large effusion. No pneumothorax. Cardiomediastinal silhouette: Normal cardiomediastinal silhouette. Other: No acute skeletal finding. IMPRESSION: No acute radiographic abnormality. AP, LATERAL, OBLIQUE VIEWS OF THE LEFT FOOT CLINICAL HISTORY: Mid foot ulceration; Concern for osteomyelitis COMPARISONS: None. FINDINGS: First transmetatarsal amputation. Chronic deformities of second through fifth metatarsals. An area of relative lucency is seen in association with a chronic callus at the distal fifth metatarsal. No soft tissue gas or radiodense foreign body. Partially threaded screws span the distal tibia, without hardware fracture. IMPRESSION: Focal lucency associated with the lateral fifth metatarsal. This could reflect a radiographic manifestation of osteomyelitis. Correlate with site of reported ulceration. A dedicated MRI of the foot can be performed for increased sensitivity, as clinically warranted. [employer]: [employer] Transcribe Date/Time: Aug 31 2023 4:46A Dictated by : TAURUS MORTON MD This examination was interpreted and the report reviewed and electronically signed by: TAURUS MORTON MD on Aug 31 2023 4:51AM EST [id number] Normal [facility] Benzodiazepines Screen Ql (U )on 08-09-2023 Benzodiazepines Ql (U) Negative Normal NEG [facility] Comment on above: Result Comment: Lenny odiazepines screening cut off value = 200 ng/mL This report is intended for use in clinical monitoring or management of patients. Performed By: #### 1 4316-4 #### [facility] ([id number]) [address] [place] [id number] CCL GENERIC ORDERon 08-09-20 23 TEST NAME UQNTPP URINE PAIN PA VEGA QUANT Normal [facility] Comment on above: Result Comment: Wesley ected on 08/09 AT 1743: Previously reported as UQNTPP Performed By: #### C GO #### [facility] ([id number]) [address] [place] [id number] TEST RESULT See Below Normal [facility] Comment on above: Result Comment: NOTE TEST RESULT FLAG UNIT REF.RANGE ----- Specimen Validity Quality See below Specimen quality results within acceptable limits Specimen Validity Creatinine 31.8 mg/dL 20.0-300.0 Specimen Validity PH 5.4 4.5-8.0 Specimen Validity Specific Pyatt 1.006 1.003-1.035 Specimen Validity Oxidants <38 mg/L <200 Specimen Validity Nitrites <50 mg/L <500 Specimen Validity Chromate <10 mg/L <50 URINE PAIN PANEL QUANT Morphine Quant, Urine <10 ng/mL <10 Morphine is a metabolite of codeine and heroin. Oxymorphone Quant, Urine <5 ng/mL <5 Oxymorphone is a metabolite of oxycodone. Hydromorphone Quant, Urine 263 H ng/mL <5 Hydromorphone may arise from hydromorphone containing drugs or by metabolism of morphine and hydrocodone. Dihydrocodeine Quant, Urine 283 H ng/mL <5 The presence of dihydrocodeine may arise from dihydrocodeine containing drugs or from the metabolism of hydrocodone. Codeine Quant, Urine <11 ng/mL <11 Amphetamine, Urine <5 ng/mL <5 Desmethyltramadol,Ur <20 ng/mL <20 Desmethyltramadol is a metabolite of tramadol. Benzoylecognine,Ur Qnt <24 ng/mL <24 Benzoylecgonine is a metabolite of cocaine. Oxycodone Quant, Urine <10 ng/mL <10 Methamphetamine, Urine <8 ng/mL <8 6-Acetylmorphine Quant, Urine <5 ng/mL <5 6-JESSICA (6-monoacetylmorphine, also known as 6-acetylmorphine) is a unique metabolite of heroin. Presence of 6-JESSICA indicates use of heroin. 6-JESSICA is further metabolized to morphine and absence of 6-JESSICA does not rule out the use of heroin. Hydrocodone Quant, Urine 699 H ng/mL <8 Hydrocodone may arise from hydrocodone containing drugs or by metabolism of dihydrocodeine. Hydrocodone is also a minor metabolite of codeine, and may be detected with elevated levels of codeine. Hydrocodone is metabolized to hydromorphone and dihydrocodeine. Norfentanyl, Urine <6 ng/mL <6 Norfentanyl is a metabolite of fentanyl. Tramadol, Urine <25 ng/mL <25 Norbuprenorphine, Ur <20 ng/mL <20 Norbuprenorphine is the primary active metabolite of buprenorphine. Cannabinoid, Urine <16 ng/mL <16 Tetrahydrocannabinol carboxylic acid (THCA) is a metabolite of viufl-2-seaymmessxkcovmgviir which is the main active component of marijuana. Fentanyl, Urine <6 ng/mL <6 Buprenorphine, Ur <20 ng/mL <20 Methadone Urine <16 ng/mL <16 Methadone metabolite Urine <6 ng/mL <6 EDDP is a metabolite of methadone. Note See Below This test is for medical use only. This test was developed and its performance characteristics determined by [facility] [place] ([facility] It has not been cleared or approved by the FDA. [facility] is regulated under CLIA as qualified to perform high-complexity testing. This test is used for clinical purposes. It should not be regarded as investigational or for research. URINE PAIN PANEL QUANT Test Performed By: [facility] [address] [place] [address] Slicing Machine Operator: Oswald Munguia III, M.D. CLIA #[id number] Performed By: #### C GO #### [facility] ([id number]) [address] [place] [address], [place] [address] Operative Reporton Operative Report [id number]#1.00T IFF Normal [facility] Pathology Noteon 08-07-2023 Pathology Note [id number]#1.00 TIFF Normal [facility] ED Note-Physicianon 06-29-20 23 ED Note-Physician [id number]#[id number] IFF Normal [facility] Patient Letter FTMCon 2022 Patient Letter [facility] (Inserted Image. Grecia ble to display) June 28, 2023 AISLINN WHEELER [address] [place] [id number] : 1960 Dear Aislinn, You missed your scheduled appointment on: June with Dr. Lisa Porras. Please note our appointment slots fill [...] any future cancellations. Sincerely, [facility] [address], [place] [address] Pt called and RS'd. Normal [facility] Basic metabolic 2000 panelon 06-23-2023 Anion gap [Moles/Vol] 9 mmol/L Normal 9-18 [facility] Comment on above: Order Comment: Speci men Type: VENOUS BLOOD SPECIMEN Ordering Facility: [facility] Address: [address] [place] [address] Performed By: #### 2 4344-4 #### [facility] CLIA [id number] [address] [place] [address] [place] Calcium [Mass/Vol] 7.3 mg/dL Low 8.5-10.2 [facility] Comment on above: Order Comment: Speci men Type: VENOUS BLOOD SPECIMEN Ordering Facility: [facility] Address: [address] [place] [address] Performed By: #### 2 4344-4 #### [facility] CLIA [id number] [address] [place] [address] [place] Chloride [Moles/Vol] 110 mmol/L High 97-105 [facility] Comment on above: Order Comment: Speci men Type: VENOUS BLOOD SPECIMEN Ordering Facility: [facility] Address: [address] [place] [address] Performed By: #### 2 4344-4 #### [facility] CLIA [id number] [address] [place] [address] [place] CO2 [Moles/Vol] 19 mmol/L Low 22-30 [facility] Comment on above: Order Comment: Speci men Type: VENOUS BLOOD SPECIMEN Ordering Facility: [facility] Address: [address] [place] [address] Performed By: #### 2 4344-4 #### [facility] CLIA [id number] [place] [address] [place] Creatinine [Mass/Vol] 1.39 mg/dL High 0.58-0.96 [facility] Comment on above: Order Comment: Speci men Type: VENOUS BLOOD SPECIMEN Ordering Facility: [facility] Address: [address] [place] [address] Performed By: #### 2 4344-4 #### [facility] CLIA [id number] [address] [place] [address] [place] Creatinine and Glomerular filtration rate.predicted panel (S/P/Bld) 42 mL/min/1.73m??? Low >=60 [facility] Comment on above: Order Comment: Speci men Type: VENOUS BLOOD SPECIMEN Ordering Facility: [facility] Address: [address] [place] [address] Result Comment: Donna mated Glomerular Filtration Rate [...] reflect actual GFR. Performed By: #### 2 4344-4 #### [facility] CLIA [id number] [address] [place] [address] [place] Glucose [Mass/Vol] 157 mg/dL High 74-99 [facility] Comment on above: Order Comment: Speci men Type: VENOUS BLOOD SPECIMEN Ordering Facility: [facility] Address: [address] [place] [address] Result Comment: The [place] [employer] (ADA) provides guidance for cutoff [...] Standards of Medical Care in Diabetes 2016, [place] [employer]. Diabetes Care. 2016.39(Suppl 1). Performed By: #### 2 4344-4 #### [facility] CLIA [id number] [address] [place] [address] [place] Potassium [Moles/Vol] 5.1 mmol/L Normal 3.7-5.1 [facility] Comment on above: Order Comment: [place] Type: VENOUS BLOOD SPECIMEN Ordering Facility: [facility] Address: [address] [place] [address] Performed By: #### 2 4344-4 #### [facility] CLIA [id number] [address] [place] [address] [place] Sodium [Moles/Vol] 138 mmol/L Normal 136-144 [facility] Comment on above: Order Comment: [place] Type: VENOUS BLOOD SPECIMEN Ordering Facility: [facility] Address: [address] [place] [address] Performed By: #### 2 4344-4 #### [facility] CLIA [id number] [address] [place] [address] [place] Urea nitrogen [Mass/Vol] 21 mg/dL Normal 7-21 [facility] Comment on above: Order Comment: Simonai men Type: VENOUS BLOOD SPECIMEN Ordering Facility: [facility] Address: [address] [place] [address] Performed By: #### 2 4344-4 #### [facility] CLIA [id number] [address] [place] [address] [place] CBC panel Auto (Bld)on 06-23 Erythrocyte distribution width (RBC) [Ratio] 14.4 % Normal 11.5-15.0 [facility] Comment on above: Order Comment: Speci men Type: BLOOD SPECIMEN Ordering Facility: [facility] Address: [address] [place] [address] Performed By: #### 5 8410-2 #### [facility] CLIA [id number] [address] [place] [address] [place] Hematocrit (Bld) [Volume fraction] 28.5 % Low 36.0-46.0 [facility] Comment on above: Order Comment: Speci men Type: BLOOD SPECIMEN Ordering Facility: [facility] Address: [address] [place] [address] Performed By: #### 5 8410-2 #### [facility] CLIA [id number] [address] [place] [address] [place] Hemoglobin (Bld) [Mass/Vol] 9.0 g/dL Low 11.5-15.5 [facility] Comment on above: Order Comment: Speci men Type: BLOOD SPECIMEN Ordering Facility: [facility] Address: [address] [place] [address] Performed By: #### 5 8410-2 #### [facility] CLIA [id number] [address] [place] [address] [place] MCH (RBC) [Entitic mass] 25.2 pg Low 26.0-34.0 [facility] Comment on above: Order Comment: Speci men Type: BLOOD SPECIMEN Ordering Facility: [facility] Address: [address] [place] [address] Performed By: #### 5 8410-2 #### [facility] CLIA [id number] [address] [place] [address] [place] MCHC (RBC) [Mass/Vol] 31.6 g/dL Normal 30.5-36.0 [facility] Comment on above: Order Comment: Speci men Type: BLOOD SPECIMEN Ordering Facility: [facility] Address: [address] [place] [address] Performed By: #### 5 8410-2 #### [facility] CLIA [id number] [address] [place] [address] [place] MCV (RBC) [Entitic vol] 79.8 fL Low 80.0-100.0 [facility] Comment on above: Order Comment: Speci men Type: BLOOD SPECIMEN Ordering Facility: [facility] Address: [address] [place] [address] Performed By: #### 5 8410-2 #### [facility] CLIA [id number] [address] [place] [address] [place] Nucleated RBC (Bld) [#/Vol] 10*3/uL Normal <0.01 [facility] Comment on above: Order Comment: Speci men Type: BLOOD SPECIMEN Ordering Facility: [facility] Address: [address] [place] [address] Performed By: #### 5 8410-2 #### [facility] CLIA [id number] [address] [place] [address] [place] Platelet mean volume (Bld) [Entitic vol] 10.6 fL Normal 9.0-12.7 [facility] Comment on above: Order Comment: Speci men Type: BLOOD SPECIMEN Ordering Facility: [facility] Address: [address] [place] [address] Performed By: #### 5 8410-2 #### [facility] CLIA [id number] [address] [place] [address] [place] Platelets (Bld) [#/Vol] 251 10*3/uL Normal 150-400 [facility] Comment on above: Order Comment: Speci men Type: BLOOD SPECIMEN Ordering Facility: [facility] Address: [address] [place] [address] Performed By: #### 5 8410-2 #### [facility] CLIA [id number] [address] [place] [address] [place] RBC (Bld) [#/Vol] 3.57 10*6/uL Low 3.90-5.20 [facility] Comment on above: Order Comment: Speci men Type: BLOOD SPECIMEN Ordering Facility: [facility] Address: [address] [place] [address] Performed By: #### 5 8410-2 #### [facility] CLIA [id number] [address] [place] [address] [place] WBC (Bld) [#/Vol] 7.47 10*3/uL Normal 3.70-11.00 [facility] Comment on above: Order Comment: Speci men Type: BLOOD SPECIMEN Ordering Facility: [facility] Address: [address] [place] [address] Performed By: #### 5 8410-2 #### [facility] CLIA [id number] [address] [place] [address] [place] CNDSon 06-23-2023 CNDS HNO ID: [id number] Author: Annie Martinez APRN.SOUND PERSON Service: Urology Author Type: Nurse Practitioner Type: [...] this patient's care. Taurus Ballard MD [facility] [address] [id number] or ([phone]) [facility] I N F O R M A T I O N ------ [facility] DOCUMENT DISCHARGE SUMMARY Patient Name: Aislinn Wheeler [...] Your Medications These medications were sent to [facility] [address] [place] [address] Hours: Monday-Monday: 7am-7pm, Sat: 9am-1pm acetaminophen 325 mg tablet docusate sodium 100 mg capsule Future Appointments: No future appointments. Electronically SIGNED by Licensed Independent Practitioner: Annie Martinez APRN.[facility] 06-23-2023 [facility] AISLINN WHEELER ([id number]) 1960 F Date Time Provider Department 06/23/23 [facility] During your visit today, we recorded the following information about you: Heidy Garcia RN 06/23/2023 9:05 AM Signed Patient had left robotic partial nephrectomy by Dr. Ballard on 06/22/2023 Will call for surgical follow up once discharged Heidy Garcia RN 06/26/2023 10:45 AM Signed Patient phone number non functioning. Active in [employer], will send message inquiring on how she's feeling post-operatively. Vonnie Wilder RN 06/27/2023 10:15 AM Signed Spoke with grand daughter, Chloe, as this office is unable to reach patient for post op call. Chloe reports, that patient's phone is turned off, and she does not know how to use [employer]. Chloe reports that patient went to [place] [facility] due to excruciating pain -was given [...] needed Date Reviewed: 06/22/2023 Reviewed by: Afia Lanier RN - Fully Assessed Reason for Visit: Surgical [...] Encounter Status:Closed by HEIDY GARCIA on 06/23/23 [facility] NURSING PROGon 06-23-2023 NURSING PROG HNO ID: [id number] Author: Sweta Cordova RN Service: ? Author Type: Registered Nurse [...] Annie Martinez, awaiting PRN order of hydralazine. [facility] ANES POSTPROC EVALon 023 ANES POSTPROC EVAL HNO ID: [id number] Author: Rikki Jhaveri MD Service: Anesthesiology Author [...] June 22, 2023 TIME: 2:18 PM CSN: [id number] [facility] ANES PRE-OPon 06-22-2023 ANES PRE-OP HNO ID: [id number] Author: Rikki Jhaveri MD Service: Anesthesiology Author Type: Anesthesiologist Type: Anesthesia Preprocedure Evaluation Filed: 06/22/2023 9:55 AM Note Text: ANESTHESIOLOGY DAY OF SURGERY NOTE : 1960 Procedure Information Date/Time: 06/22/23 1115 Procedure: ROBOTIC LAPAROSCOPIC NEPHRECTOMY PARTIAL (Abdomen quadrant upper) Location: OR01A / [facility] Surgeons: Taurus Ballard [...] (HCC) -RENAL (+) ANATOLIY (acute kidney injury) (HCC) (+) Stage 3a chronic kidney disease (HCC) NEURO-PSYCH (+) History of TIA (transient ischemic [...] June 22, 2023 TIME: 9:54 AM CSN: [id number] Normal [facility] Basic metabolic 2000 panelon 06-22-2023 Anion gap [Moles/Vol] 7 mmol/L Low 9-18 [facility] Comment on above: Order Comment: Speci men Type: BLOOD SPECIMEN Ordering Facility: [facility] Address: [address] [place] [address] Performed By: #### 2 4321-2 #### [facility] CLIA [id number] [address] [place] [address] [place] Calcium [Mass/Vol] 7.5 mg/dL Low 8.5-10.2 [facility] Comment on above: Order Comment: Speci men Type: BLOOD SPECIMEN Ordering Facility: [facility] Address: [address] [place] [address] Performed By: #### 2 4321-2 #### [facility] CLIA [id number] [place] [address] [place] Chloride [Moles/Vol] 108 mmol/L High 97-105 [facility] Comment on above: Order Comment: Speci men Type: BLOOD SPECIMEN Ordering Facility: [facility] Address: [address] [place] [address] Performed By: #### 2 4321-2 #### [facility] CLIA [id number] [address] [place] [address] [place] CO2 [Moles/Vol] 19 mmol/L Low 22-30 [facility] Comment on above: Order Comment: Speci men Type: BLOOD SPECIMEN Ordering Facility: [facility] Address: [address] [place] [address] Performed By: #### 2 4321-2 #### [facility] CLIA [id number] [address] [place] [address] [place] Creatinine [Mass/Vol] 1.57 mg/dL High 0.58-0.96 [facility] Comment on above: Order Comment: Simonai [place] Type: BLOOD SPECIMEN Ordering Facility: [facility] Address: [address] [place] [address] Performed By: #### 2 4321-2 #### [facility] CLIA [id number] [address] [place] [address] [place] Creatinine and Glomerular filtration rate.predicted panel (S/P/Bld) 36 mL/min/1.73m??? Low >=60 [facility] Comment on above: Order Comment: Simonai men Type: BLOOD SPECIMEN Ordering Facility: [facility] Address: [address] [place] [address] Result Comment: Donna mated Glomerular Filtration Rate [...] GFR. Performed By: #### 2 4321-2 #### [facility] CLIA [id number] [address] [place] [address] [place] Glucose [Mass/Vol] 275 mg/dL High 74-99 [facility] Comment on above: Order Comment: Speci men Type: BLOOD SPECIMEN Ordering Facility: [facility] Address: [address], [place] [address] Result Comment: The [place] [employer] (ADA) provides guidance for cutoff [...] Standards of Medical Care in Diabetes 2016, [place] [employer]. Diabetes Care. 2016.39(Suppl 1). Performed By: #### 2 4321-2 #### [facility] CLIA [id number] [address] [place] [address] [place] Potassium [Moles/Vol] 5.3 mmol/L High 3.7-5.1 [facility] Comment on above: Order Comment: [place] Type: BLOOD SPECIMEN Ordering Facility: [facility] Address: [address] [place] [address] Performed By: #### 2 4321-2 #### [facility] CLIA [id number] [address] [place] [address] [place] Sodium [Moles/Vol] 134 mmol/L Low 136-144 [facility] Comment on above: Order Comment: [place] Type: BLOOD SPECIMEN Ordering Facility: [facility] Address: [address] [place] [address] Performed By: #### 2 4321-2 #### [facility] CLIA [id number] [address] [place] [address] [place] Urea nitrogen [Mass/Vol] 26 mg/dL High 7-21 [facility] Comment on above: Order Comment: [place] Type: BLOOD SPECIMEN Ordering Facility: [facility] Address: [address] [place] [address] Performed By: #### 2 4321-2 #### [facility] CLIA [id number] [address] [place] [address] [place] CBC panel Auto (Bld)on 06-22 Erythrocyte distribution width (RBC) [Ratio] 14.3 % Normal 11.5-15.0 [facility] Comment on above: Order Comment: Speci men Type: BLOOD SPECIMEN Ordering Facility: [facility] Address: [address] [place] [address] Performed By: #### 2 4321-2 #### [facility] CLIA [id number] [address] [place] [address] [place] Hematocrit (Bld) [Volume fraction] 27.8 % Low 36.0-46.0 [facility] Comment on above: Order Comment: Speci men Type: BLOOD SPECIMEN Ordering Facility: [facility] Address: [address] [place] [address] Performed By: #### 2 4321-2 #### [facility] CLIA [id number] [address] [place] [address] [place] Hemoglobin (Bld) [Mass/Vol] 8.9 g/dL Low 11.5-15.5 [facility] Comment on above: Order Comment: Speci men Type: BLOOD SPECIMEN Ordering Facility: [facility] Address: [address] [place] [address] Performed By: #### 2 4321-2 #### [facility] CLIA [id number] [address] [place] [address] [place] MCH (RBC) [Entitic mass] 25.3 pg Low 26.0-34.0 [facility] Comment on above: Order Comment: Speci men Type: BLOOD SPECIMEN Ordering Facility: [facility] Address: [address] [place] [address] Performed By: #### 2 4321-2 #### [facility] CLIA [id number] [address] [place] [address] [place] MCHC (RBC) [Mass/Vol] 32.0 g/dL Normal 30.5-36.0 [facility] Comment on above: Order Comment: Speci men Type: BLOOD SPECIMEN Ordering Facility: [facility] Address: [address] [place] [address] Performed By: #### 2 4321-2 #### [facility] CLIA [id number] [address] [place] [address] [place] MCV (RBC) [Entitic vol] 79.0 fL Low 80.0-100.0 [facility] Comment on above: Order Comment: Speci men Type: BLOOD SPECIMEN Ordering Facility: [facility] Address: [address] [place] [address] Performed By: #### 2 4321-2 #### [facility] CLIA [id number] [address] [place] [address] [place] Nucleated RBC (Bld) [#/Vol] 10*3/uL Normal <0.01 [facility] Comment on above: Order Comment: Speci men Type: BLOOD SPECIMEN Ordering Facility: [facility] Address: [address] [place] [address] Performed By: #### 2 4321-2 #### [facility] CLIA [id number] [address] [place] [address] [place] Platelet mean volume (Bld) [Entitic vol] 10.8 fL Normal 9.0-12.7 [facility] Comment on above: Order Comment: Speci men Type: BLOOD SPECIMEN Ordering Facility: [facility] Address: [address] [place] [address] Performed By: #### 2 4321-2 #### [facility] CLIA [id number] [address] [place] [address] [place] Platelets (Bld) [#/Vol] 230 10*3/uL Normal 150-400 [facility] Comment on above: Order Comment: Speci men Type: BLOOD SPECIMEN Ordering Facility: [facility] Address: [address] [place] [address] Performed By: #### 2 4321-2 #### [facility] CLIA [id number] [address] [place] [address] [place] RBC (Bld) [#/Vol] 3.52 10*6/uL Low 3.90-5.20 [facility] Comment on above: Order Comment: Speci men Type: BLOOD SPECIMEN Ordering Facility: [facility] Address: [address] [place] [address] Performed By: #### 2 4321-2 #### [facility] CLIA [id number] [address] [place] [address] [place] WBC (Bld) [#/Vol] 6.04 10*3/uL Normal 3.70-11.00 [facility] Comment on above: Order Comment: Speci men Type: BLOOD SPECIMEN Ordering Facility: [facility] Address: [address] [place] [address] Performed By: #### 2 4321-2 #### [facility] CLIA [id number] [address] [id number] [place] NURSING PROGon 06-22-2023 NURSING PROG HNO ID: [id number] Author: Afia Lanier, REY Service: Nursing Author Type: Registered Nurse Type: Nursing Progress Note Filed: 06/22/2023 5:56 PM Note Text: Transfer Note: PATIENT NAME: Aislinn Wheeler Patient Location: [place] [address] [address] Room: [place] [address] Patient transferred into room/unit [id number] in stable condition. Actions taken: No futher actions taken at this time. Will continue to monitor and check with patient. [facility] NURSING PROG HNO ID: [id number] Author: Linda Nicholson RN Service: Nursing Author Type: Registered Nurse Type: Nursing Progress Note Filed: 06/22/2023 12:20 PM Note Text: pre-incision juan area noted to have redness and inflamed, prior to prepping and putting chaves in. [facility] NURSING PROG HNO ID: [id number] Author: Elva Joy RN Service: Nursing Author Type: Registered Nurse Type: Nursing Progress Note Filed: 06/22/2023 9:48 AM Note Text: PATIENT EDUCATION TOPIC: PROCEDURE / SURGERY: Pre-op Teaching: Surgery PATIENT NAME: Aislinn Wheeler PATIENT LOCATION: [place]/ OR [place] TO LEARN COGNITIVE ABILITY: [...] (RECOMMENDATION): None Electronically Signed By: Elva Joy [facility] OPERATIVE NOon 06-22-2023 OPERATIVE NO HNO ID: [id number] Author: Taurus Ballard MD Service: Urology Author Type: Physician Type: Operative Report Filed: 06/22/2023 1:48 PM Note Text: OPERATIVE/PROCEDURE REPORT LOG ID: [id number] Surgery/Procedure Date: 06/22/2023 Incision/Procedure Start Time: 11:49 AM Incision Close/Procedure End Time: 1:55 PM Surgeon(s)/Proceduralis t(s) and Centrifuge Separator Operator(s): Surgeon(s) and Role: * Taurus Ballard MD - Primary * Jeet De La Fuente MD - Resident - Assisting Physician Centrifuge Separator Operator: Rocael Rios PA-C; Alicia Harmon PA-C Procedure(s): [...] superior to the umbilicus a 12 mm assistant purchasing manager port was placed. At this point the [...] a specimen bag out of the supraumbilical assistant purchasing manager port. This port was closed with a [...] None Drains: 10 flat JUAN drain, 16 Syriac Chaves catheter Complications: None Accidental Punctures/Lacerations: None I/primary surgeon/proceduralist performed the procedure with assistance. SIGNATURE: Taurus Ballard MD PATIENT NAME: Aislinn Wheeler DATE: June 22, 2023 TIME: 1:42 PM PAGER/CONTACT #: [facility] SURGICAL PATHOLOGYon 023 CASE REPORT Normal [facility] Comment on above: Order Comment: Speci men Type: BLOOD SPECIMEN Ordering Facility: [facility] Address: [address] [place] [address] Result Comment: Surg ical Pathology Report Case: [id number] Authorizing Provider: Taurus Ballard MD Collected: 06/22/2023 01:38 PM Ordering Location: [facility] Received: 06/22/2023 03:16 PM Operating Room Pathologist: Barron Cheema MD Specimen: KIDNEY PARTIAL NEPHRECTOMY LEFT, left renal neoplasm Performed By: #### 2 4321-2 #### [facility] CLIA [id number] [address] CLINICAL HISTORY Normal [facility] Comment on above: Order Comment: Speci men Type: BLOOD SPECIMEN Ordering Facility: [facility] Address: [address] [place] [address] Result Comment: 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 - 7.2 cm gross greatest dimension of tissue specimen (defer to clinical/imaging for overall lesion size). Performed By: #### 2 4321-2 #### [facility] CLIA [id number] [address] [place] [address] FINAL PERFORMING LAB Normal [facility] Comment on above: Order Comment: [place] Type: BLOOD SPECIMEN Ordering Facility: [facility] Address: [address] [place] [address] Result Comment: Diag nostic interpretation performed at [facility], [address] [address] CLIA# [id number] Slicing Machine Operator: Oswald Munguia M.D. Performed By: #### 2 4321-2 #### [facility] CLIA [id number] [address] [place] [address] GROSS DESCRIPTION Normal [facility] Comment on above: Order Comment: [place] Type: BLOOD SPECIMEN Ordering Facility: [facility] Address: [address] [place] [address] Result Comment: Emre MCGRATH PARTIAL NEPHRECTOMY LEFT Received in formalin designated left renal neoplasm is a segment of chilel-purple membranous tissue which weighs 39 g and measures 7.2 x 5.5 x 3.5 cm. There is cautery present at the margin which is inked orange. The surfaces are smooth with no masses or papillations grossly appreciated. Sectioning does not reveal any masses. Composing Machine Operator sections are submitted in 5 cassettes. BF June 23, 2023 9:00 AM Gross examination performed at [facility], [address] [place] [address] CLIA # [id number] Performed By: #### 2 4321-2 #### [facility] CLIA [id number] [address] [place] [address] BETTYE Kamilah 06-15-2023 CNPN Telephone (URR) AISLINN WHEELER ([id number]) 1960 F Date Time Provider Department 06/15/23 [facility]IL[facility] During your visit today, we recorded the [...] Encounter Status:Closed by VONNIE WILDER on 06/15/23 [facility] Kamilah 06-12-2023 [facility] LIAMAISLINN M ([id number]) 1960 F Date Time Provider Department 06/12/23 LILIANA VELASCORaquel During your visit today, we recorded the following information about you: Liliana Velasco RN 06/12/2023 8:56 AM Signed Received call from RN at Dr. Sara Augustine ([phone]) office (endocrinology) regarding clearance for upcoming surgery [...] Office Notes on 06/08/23 with endocrinology, Sara Dai, KIARA received and scanned into EXPO to view. Allergies As of Date: 06/12/2023 [...] Encounter Status:Closed by LILIANA VELASCO on 06/12/23 [facility] C Urineon 06-10-2023 Bacteria identified Cx Nom (U) Microbiology PROCEDURE: Urine Culture [R1] SOURCE: U CleanCatch BODY SITE: COLLECTED DATE/TIME: 06/08/2023 14:50 EDT RECEIVED DATE/TIME: 06/08/2023 19:41 EDT START DATE/TIME: 06/08/2023 19:41 EDT FREE TEXT SOURCE: CATALINA VIRGEN, HEIDY [...] Locations R1: This test was performed at: [facility], [address] [place] [address], [phone] , [place], Normal [facility] Comment on above: Performed By: #### 2 [id number] #### [facility] [address] [place] [address] [facility] 06-09-2023 [facility] Telephone ([facility]) AISLINN WHEELER ([id number]) 1960 F Date Time Provider Department 06/09/23 TAURUS BALLARD [facility] During your visit today, we recorded the following information about you: Derik Fernandez 06/09/2023 3:31 PM Signed Lvm on patient's phone inquiring if she kept her buffer nickel appointment on 06/08 for clearance for her surgery on 06/22 Left message with office of Sara Augustine ([phone]) where patient's appointment was scheduled asking for [...] Encounter Status:Closed by DERIK FERNANDEZ on 06/09/23 [facility] Glucose - FINGER STICKon Glucose [Mass/Vol] 436 mg/dL [facility] Other [facility] 06-07-2023 [facility] Telephone ([place]) AISLINN WHEELER ([id number]) 1960 F Date Time Provider Department 06/07/23 [...] labs to PCP Thank you Jenny Aguilar APRN.[facility] Jenny Aguilar APRN.CNP 06/07/2023 8:26 [...] AGUILAR on: 06/07/2023 08:26 AM Modules accepted: Orders Anitra Sanchez RN 06/07/2023 10:06 AM Addendum Patient is [...] to make it to her appointment. Anitra Sanchez RN June 07, 2023 2:14 PM Anitra Sanchez RN 06/12/2023 12:49 PM Signed Hari Alvarado, Please review OVN scanned into EPiC today from Sara Augustine APRN. Also, see TE 06/12/23. Thank you, Anitra Sanchez RN June 12, 2023 12:49 PM Jenny Aguilar APRN.SOUND PERSON 06/13/2023 11:[address] Chao, Patient saw endocrinology at [facility] 06/08 and had medications adjusted. I called patient to see how BG levels have been but unable to reach. She has a follow up with endo 06/20 Can she proceed with surgery since she saw endo? Thank you Jenny Aguilar APRN.SOUND PERSON PACC Jenny Aguilar APRN.SOUND PERSON 06/15/2023 1:26 PM Signed Repeat labs completed [...] fatigue. She is on her way to [facility] ED. Because patient is not feeling well, [...] Fully Assessed Reason for Visit: PreOp Call [1754] Cmt: Elevated A1c Primary Visit Diagnosis:Uncontrolled type 2 diabetes mellitus with hyperglycemia (HCC) [E11.65] Order(s):CONSULT TO ENDOCRINOLOGY [6392] Order #: [id number]: 1 FUTURE Prescriptions as of 06/19/2023 - [...] hours as (more content not included)... Normal [facility] CBC W Auto Differential pane l (Bld)on 06-06-2023 Basophils (Bld) [#/Vol] 0.04 10*3/uL Normal <0.11 [facility] Comment on above: Order Comment: Speci men Type: BLOOD SPECIMEN Ordering Facility: [facility] Address: [address] [place] [address] Performed By: #### 5 7021-8 #### [facility] CLIA [id number] [address] [place] [address] [place] Basophils/100 WBC (Bld) 0.8 % Normal [facility] Comment on above: Order Comment: Speci men Type: BLOOD SPECIMEN Ordering Facility: [facility] Address: [address] [place] [address] Performed By: #### 5 7021-8 #### [facility] CLIA [id number] [address] [place] [address] [place] Differential cell count method Nom (Bld) Auto Normal [facility] Comment on above: Order Comment: Speci men Type: BLOOD SPECIMEN Ordering Facility: [facility] Address: [address] [place] [address] Performed By: #### 5 7021-8 #### [facility] CLIA [id number] [address] [place] [address] [place] Eosinophils (Bld) [#/Vol] 0.15 10*3/uL Normal <0.46 [facility] Comment on above: Order Comment: Speci men Type: BLOOD SPECIMEN Ordering Facility: [facility] Address: [address] [place] [address] Performed By: #### 5 7021-8 #### [facility] CLIA [id number] [address] [place] [address] [place] Eosinophils/100 WBC (Bld) 3.1 % Normal [facility] Comment on above: Order Comment: Speci men Type: BLOOD SPECIMEN Ordering Facility: [facility] Address: [address] [place] [address] Performed By: #### 5 7021-8 #### [facility] CLIA [id number] [address] [place] [address] [place] Erythrocyte distribution width (RBC) [Ratio] 14.7 % Normal 11.5-15.0 [facility] Comment on above: Order Comment: Speci men Type: BLOOD SPECIMEN Ordering Facility: [facility] Address: [address] [place] [address] Performed By: #### 5 7021-8 #### [facility] CLIA [id number] [address] [place] [address] [place] Hematocrit (Bld) [Volume fraction] 37.2 % Normal 36.0-46.0 [facility] Comment on above: Order Comment: Speci men Type: BLOOD SPECIMEN Ordering Facility: [facility] Address: [address] [place] [address] Performed By: #### 5 7021-8 #### [facility] CLIA [id number] [address] [place] [address] [place] Hemoglobin (Bld) [Mass/Vol] 11.9 g/dL Normal 11.5-15.5 [facility] Comment on above: Order Comment: Speci men Type: BLOOD SPECIMEN Ordering Facility: [facility] Address: [address] [place] [address] Performed By: #### 5 7021-8 #### [facility] CLIA [id number] [address] [place] [address] [place] Immature granulocytes (Bld) [#/Vol] 10*3/uL Normal <0.10 [facility] Comment on above: Order Comment: Speci men Type: BLOOD SPECIMEN Ordering Facility: [facility] Address: [address] [place] [address] Performed By: #### 5 7021-8 #### [facility] CLIA [id number] [address] [place] [address] [place] Immature granulocytes/100 WBC (Bld) 0.4 % Normal [facility] Comment on above: Order Comment: Speci men Type: BLOOD SPECIMEN Ordering Facility: [facility] Address: [address] [place] [address] Performed By: #### 5 7021-8 #### [facility] CLIA [id number] [address] [place] [address] [place] Lymphocytes (Bld) [#/Vol] 2.18 10*3/uL Normal 1.00-4.00 [facility] Comment on above: Order Comment: Speci men Type: BLOOD SPECIMEN Ordering Facility: [facility] Address: [address] [place] [address] Performed By: #### 5 7021-8 #### [facility] CLIA [id number] [address] [place] [address] [place] Lymphocytes/100 WBC (Bld) 44.7 % Normal [facility] Comment on above: Order Comment: Speci men Type: BLOOD SPECIMEN Ordering Facility: [facility] Address: [address] [place] [address] Performed By: #### 5 7021-8 #### [facility] CLIA [id number] [address] [place] [address] [place] MCH (RBC) [Entitic mass] 25.4 pg Low 26.0-34.0 [facility] Comment on above: Order Comment: Speci men Type: BLOOD SPECIMEN Ordering Facility: [facility] Address: [address] [place] [address] Performed By: #### 5 7021-8 #### [facility] CLIA [id number] [address] [place] [address] [place] MCHC (RBC) [Mass/Vol] 32.0 g/dL Normal 30.5-36.0 [facility] Comment on above: Order Comment: Speci men Type: BLOOD SPECIMEN Ordering Facility: [facility] Address: [address] [place] [address] Performed By: #### 5 7021-8 #### [facility] CLIA [id number] [address] [place] [address] [place] MCV (RBC) [Entitic vol] 79.5 fL Low 80.0-100.0 [facility] Comment on above: Order Comment: Speci men Type: BLOOD SPECIMEN Ordering Facility: [facility] Address: [address] [place] [address] Performed By: #### 5 7021-8 #### [facility] CLIA [id number] [address] [place] [address] [place] Monocytes (Bld) [#/Vol] 0.42 10*3/uL Normal <0.87 [facility] Comment on above: Order Comment: Speci men Type: BLOOD SPECIMEN Ordering Facility: [facility] Address: [address] [place] [address] Performed By: #### 5 7021-8 #### [facility] CLIA [id number] [address] [place] [address] [place] Monocytes/100 WBC (Bld) 8.6 % Normal [facility] Comment on above: Order Comment: Speci men Type: BLOOD SPECIMEN Ordering Facility: [facility] Address: [address] [place] [address] Performed By: #### 5 7021-8 #### [facility] CLIA [id number] [address] [place] [address] [place] Neutrophils (Bld) [#/Vol] 2.07 10*3/uL Normal 1.45-7.50 [facility] Comment on above: Order Comment: Speci men Type: BLOOD SPECIMEN Ordering Facility: [facility] Address: [address] [place] [address] Performed By: #### 5 7021-8 #### [facility] CLIA [id number] [address] [place] [address] [place] Neutrophils/100 WBC (Bld) 42.4 % Normal [facility] Comment on above: Order Comment: Speci men Type: BLOOD SPECIMEN Ordering Facility: [facility] Address: [address] [place] [address] Performed By: #### 5 7021-8 #### [facility] CLIA [id number] [address] [place] [address] [place] Nucleated RBC (Bld) [#/Vol] 10*3/uL Normal <0.01 [facility] Comment on above: Order Comment: Speci men Type: BLOOD SPECIMEN Ordering Facility: [facility] Address: [address] [place] [address] Performed By: #### 5 7021-8 #### [facility] CLIA [id number] [address] [place] [address] [place] Nucleated RBC/100 WBC (Bld) [Ratio] 0.0 /100 WBC Normal [facility] Comment on above: Order Comment: Speci men Type: BLOOD SPECIMEN Ordering Facility: [facility] Address: [address] [place] [address] Performed By: #### 5 7021-8 #### [facility] CLIA [id number] [address] [place] [address] [place] Platelet mean volume (Bld) [Entitic vol] 11.5 fL Normal 9.0-12.7 [facility] Comment on above: Order Comment: Speci men Type: BLOOD SPECIMEN Ordering Facility: [facility] Address: [address] [place] [address] Performed By: #### 5 7021-8 #### [facility] CLIA [id number] [address] [place] [address] [place] Platelets (Bld) [#/Vol] 230 10*3/uL Normal 150-400 [facility] Comment on above: Order Comment: Speci men Type: BLOOD SPECIMEN Ordering Facility: [facility] Address: [address] [place] [address] Performed By: #### 5 7021-8 #### [facility] CLIA [id number] [address] [address] [place] RBC (Bld) [#/Vol] 4.68 10*6/uL Normal 3.90-5.20 [facility] Comment on above: Order Comment: Speci men Type: BLOOD SPECIMEN Ordering Facility: [facility] Address: [address] [place] [address] Performed By: #### 5 7021-8 #### [facility] CLIA [id number] [address] [place] [address] [place] WBC (Bld) [#/Vol] 4.88 10*3/uL Normal 3.70-11.00 [facility] Comment on above: Order Comment: Speci men Type: BLOOD SPECIMEN Ordering Facility: [facility] Address: [address] [place] [address] Performed By: #### 5 7021-8 #### [facility] CLIA [id number] [address] [place] [address] [place] Comprehensive metabolic 2000 panelon 06-06-2023 Albumin [Mass/Vol] 3.8 g/dL Low 3.9-4.9 [facility] Comment on above: Order Comment: Speci men Type: BLOOD SPECIMEN Ordering Facility: [facility] Address: [address] [place] [address] Performed By: #### 2 4323-8 #### [facility] CLIA [id number] [address] [place] [id number] [place] ALP [Catalytic activity/Vol] 115 U/L Normal 34-123 [facility] Comment on above: Order Comment: Speci men Type: BLOOD SPECIMEN Ordering Facility: [facility] Address: [address] [place] [address] Performed By: #### 2 4323-8 #### [facility] CLIA [id number] [address] [address] [place] ALT [Catalytic activity/Vol] 11 U/L Normal 7-38 [facility] Comment on above: Order Comment: Speci men Type: BLOOD SPECIMEN Ordering Facility: [facility] Address: [address] [place] [address] Performed By: #### 2 4323-8 #### [facility] CLIA [id number] [address] [place] [address] [place] Anion gap [Moles/Vol] 11 mmol/L Normal 9-18 [facility] Comment on above: Order Comment: Speci men Type: BLOOD SPECIMEN Ordering Facility: [facility] Address: [address] [place] [address] Performed By: #### 2 4323-8 #### [facility] CLIA [id number] [address] [place] [address] [place] AST [Catalytic activity/Vol] 12 U/L Low 13-35 [facility] Comment on above: Order Comment: Speci men Type: BLOOD SPECIMEN Ordering Facility: [facility] Address: [address] [place] [address] Performed By: #### 2 4323-8 #### [facility] CLIA [id number] [address] [place] [address] [place] Bilirubin [Mass/Vol] 0.3 mg/dL Normal 0.2-1.3 [facility] Comment on above: Order Comment: Speci men Type: BLOOD SPECIMEN Ordering Facility: [facility] Address: [address] [place] [address] Performed By: #### 2 4323-8 #### [facility] CLIA [id number] [address] [place] [address] [place] Calcium [Mass/Vol] 8.9 mg/dL Normal 8.5-10.2 [facility] Comment on above: Order Comment: Speci men Type: BLOOD SPECIMEN Ordering Facility: [facility] Address: [address] [place] [address] Performed By: #### 2 4323-8 #### [facility] CLIA [id number] [address] [place] [address] [place] Chloride [Moles/Vol] 95 mmol/L Low 97-105 [facility] Comment on above: Order Comment: Speci men Type: BLOOD SPECIMEN Ordering Facility: [facility] Address: [address] [place] [address] Performed By: #### 2 4323-8 #### [facility] CLIA [id number] [address] [place] [address] [place] CO2 [Moles/Vol] 24 mmol/L Normal 22-30 [facility] Comment on above: Order Comment: Speci men Type: BLOOD SPECIMEN Ordering Facility: [facility] Address: [address] [place] [address] Performed By: #### 2 4323-8 #### [facility] CLIA [id number] [address] [place] [address] [place] Creatinine [Mass/Vol] 1.81 mg/dL High 0.58-0.96 [facility] Comment on above: Order Comment: Speci men Type: BLOOD SPECIMEN Ordering Facility: [facility] Address: [address] [place] [address] Performed By: #### 2 4323-8 #### [facility] CLIA [id number] [address] [place] [address] [place] Creatinine and Glomerular filtration rate.predicted panel (S/P/Bld) 31 mL/min/1.73m??? Low >=60 [facility] Comment on above: Order Comment: Speci men Type: BLOOD SPECIMEN Ordering Facility: [facility] Address: [address] [place] [address] Result Comment: Donna mated Glomerular Filtration Rate [...] GFR. Performed By: #### 2 4323-8 #### [facility] CLIA [id number] [facility] [place] [address] [place] Glucose [Mass/Vol] 510 mg/dL High 74-99 [facility] Comment on above: Order Comment: [place] Type: BLOOD SPECIMEN Ordering Facility: [facility] Address: [address] [place] [address] Result Comment: The [place] [employer] (ADA) provides guidance for cutoff [...] Standards of Medical Care in Diabetes 2016, [place] [employer]. Diabetes Care. 2016.39(Suppl 1). Performed By: #### 2 4323-8 #### [facility] CLIA [id number] [address] [place] [address] [place] Potassium [Moles/Vol] 5.9 mmol/L High 3.7-5.1 [facility] Comment on above: Order Comment: [place] Type: BLOOD SPECIMEN Ordering Facility: [facility] Address: [address] [id number] Performed By: #### 2 4323-8 #### [facility] CLIA [id number] [address] [place] [address] [place] Protein [Mass/Vol] 8.2 g/dL High 6.3-8.0 [facility] Comment on above: Order Comment: [place] Type: BLOOD SPECIMEN Ordering Facility: [facility] Address: [address] [place], [place] [address], [place] [address] Performed By: #### 2 4323-8 #### [facility] CLIA [id number] [address] [place] [address] [place] Sodium [Moles/Vol] 130 mmol/L Low 136-144 [facility] Comment on above: Order Comment: Speci men Type: BLOOD SPECIMEN Ordering Facility: [facility] Address: [address] [place] [address] Performed By: #### 2 4323-8 #### [facility] CLIA [id number] [address] [place] [address] [place] Urea nitrogen [Mass/Vol] 36 mg/dL High 7-21 [facility] Comment on above: Order Comment: Speci men Type: BLOOD SPECIMEN Ordering Facility: [facility] Address: [address] [place] [address] Performed By: #### 2 4323-8 #### [facility] CLIA [id number] [address] [place] [address] [place] ECG COMPLETEon 06-06-2023 ECG COMPLETE Ventricular Rate : 7 6 BPM Atrial Rate : 76 BPM P-R Interval : 162 ms QRS Duration : 74 ms Q-T Interval : 402 ms QTC Calculation(Bazett) : 452 ms Calculated P [place] : 48 degrees Calculated R [place] : 43 degrees Calculated T [place] : 53 degrees NORMAL SINUS RHYTHM POSSIBLE LEFT ATRIAL ENLARGEMENT BORDERLINE ECG Confirmed by AMANDA DAVID MD ([id number]) on 06/10/2023 4:44:16 PM NAME : AISLINN WHEELER PID : [id number] : 1960 Gender : Female Race : ORD : [id number] Procedure Date : Jun 06 2023 12:04:48 Edit Date : Jun 10 2023 16:44:21 Diagnosis: NORMAL SINUS RHYTHM POSSIBLE LEFT ATRIAL ENLARGEMENT BORDERLINE ECG Confirmed by AMANDA DAVID MD ([id number]) on 06/10/2023 4:44:16 PM Test Reason : Z01.818 Preop examination Location : 145 : LOCARD Overread By : AMANDA DAVID MD Edited By : AMANDA DAVID MD Referred By : TAURUS BALLARD Acquired by : Fabio hull [facility] HISTORY PHYSICALon HISTORY PHYSICAL HNO ID: [id number] Author: Jenny Aguilar APRN.SOUND PERSON Service: ? Author Type: Nurse Practitioner Type: [...] 2 drinks per day. : See HPI CONSTRUCTION JOB TITLES: Negative for abnormal vaginal bleeding, abnormal vaginal [...] pupils equal, (more content not included)... Normal [facility] HbA1c (Bld)on 06-06-2023 Average glucose Estimated from glycated hemoglobin (Bld) [Mass/Vol] 335 mg/dL Normal [facility] Comment on above: Order Comment: [place] Type: BLOOD SPECIMEN Ordering Facility: [facility] Address: [address] [place] [address] Result Comment: eAG: (Estimated average glucose) is a calculated value from HgbA1c and is retail representative of the average blood glucose level in the last 2-3 month period. Performed By: #### 5 5454-3 #### [facility] CLIA [id number] [address] [place] [address] [place] [facility] HbA1c (Bld) [Mass fraction] 13.3 % High 4.3-5.6 [facility] Comment on above: Order Comment: [place] Type: BLOOD SPECIMEN Ordering Facility: [facility] Address: [address] [place] [address] Result Comment: Amer [place] Diabetes Association guidelines indicate that patients with HgbA1c in the range 5.7-6.4% are at increased risk for development of diabetes, and intervention by lifestyle modification may be beneficial. HgbA1c greater or equal to 6.5% is considered diagnostic of diabetes. Performed By: #### 5 5454-3 #### [facility] CLIA [id number] [facility] [address] [place] PT panel Coag (PPP)on 2022 INR Coag (PPP) [Relative time] 1.0 {INR} Normal 0.9-1.3 [facility] Comment on above: Order Comment: [place] Type: BLOOD SPECIMEN Ordering Facility: [facility] Address: [address] [place] [address] Result Comment: Laxmi min K Antagonist (VKA) Therapeutic Range: INR 2 to 3 (Target INR of 2.5) Note: For patients treated with VKA drugs, such as warfarin, the [place] [employer] 2012 Guideline recommends [...] to 3.5 (target INR of 3). Ruma CABALLERO, et al. Chest 2012, 141:7S-47S Eligio RA, et al. [facility] 2017, 70: 252-289 Performed By: #### 1 4979-9, 59972-4 #### [facility] CLIA [id number] [address] [place] [address] [place] PT Coag (PPP) [Time] 10.1 s Normal 9.7-13.0 [facility] Comment on above: Order Comment: Speci men Type: BLOOD SPECIMEN Ordering Facility: [facility] Address: [address] [place] [address] Performed By: #### 1 4979-9, 11155-3 #### [facility] CLIA [id number] [address] [place] [address] [place] TYPE AND SCREEN,30 DAYon ABO B Normal [facility] Comment on above: Order Comment: Speci men Type: BLOOD SPECIMEN Ordering Facility: [facility] Address: [address] [place] [address] Performed By: #### T SCR30 #### [facility] CLIA [id number] [address] [place] [address] [place] HISTORICAL AB SCR STATUS Negative Normal [facility] Comment on above: Order Comment: Speci men Type: BLOOD SPECIMEN Ordering Facility: [facility] Address: [address] [place] [address] Performed By: #### T SCR30 #### [facility] CLIA [id number] [address] [place] [address] [place] Rh Nom (Bld) Positive Normal [facility] Comment on above: Order Comment: Speci men Type: BLOOD SPECIMEN Ordering Facility: [facility] Address: [address] [place] [address] Performed By: #### T SCR30 #### [facility] CLIA [id number] [address] [place] [address] [place] aPTT PPPon 06-06-2023 aPTT Coag (PPP) [Time] 28.7 s Normal 23.0-32.4 [facility] Comment on above: Order Comment: Speci men Type: BLOOD SPECIMEN Ordering Facility: [facility] Address: [address] [place] [address] Result Comment: Froz en Plasma Aliquot Performed By: #### 1 4979-9, 11091-6 #### [facility] CLIA [id number] [address] [place] [address] [place] Consent for Procedure/Surger yon 05-22-2023 Consent for Procedure/Surgery [id number]#1.0 0CD:127 Normal [facility] Consent for Treatmenton Consent for Treatment [id number]#1.00C D:127 Normal [facility] Inpatient Patient Summaryon 05-22-2023 Inpatient Patient Summary [address] [address] Clinical Summary Person Information Name: AISLINN WHEELER Age: 63 Years : 1960 Sex: Female PCP: LATOSHA OLMSTEAD CNP Marital Status: Race: White Ethnicity: Non- or Language: Anguillan Visit Id: Visit Reason: MIXED URINARY INCONTINENCE Speciality: Acuity: Enc Type: Outpatient Med Service: Surgery Arrival: 05/22/2023 09:41:57 Discharge: Dispo Type: Address: [address] [place] [address] [phone] Provider Notes: Diagnosis: Feeling of incomplete bladder [...] Follow up: With: Address: When: Lisa Porras [address], [place] [address] [phone] Business (1) [address], [address], [facility] [address] [place] [address] [phone] Business (1) Comments: Office to schedule follow up in 1 month with PVR Patient Education Information: EU - Cystoscopy with Botox Injection Discharge Instructions (CUSTOM) [facility] IntraOperative Documentson 1 IntraOperative Documents [id number] 0CD:127 [facility] Main OR Intraoperative Recor don 05-22-2023 Main OR Intraoperative Record IntraOp Document Type FTURO Summary Primary Physician: Lisa Porras MD Finalized Date/Time: 05/22/23 11:29:32 Pt. Name: AISLINN WHEELERO.B./Sex: 1960 Female Med Rec #: [id number] Physician: Lisa Porras MD Financial #: [id number] Pt. Type: O Room/Bed: / Admit/Disch: 05/22/23 09:41:57 - Institution: Case Times FTURO Entry 1 Patient Times In Room 05/22/23 11:15:00 Out Room 05/22/23 11:30:00 Procedure Times Start 05/22/23 11:22:00 Stop 05/22/23 11:26:00 Anesthesia Times Last Modified By: Katya LE, Marilee Feldman 05/22/23 11:26:29 General Comments: BOTOX 100 UNITS LOT#: [id number] , EXP DATE: 09/2025 -Jessica BLANCO RN Case Attendance FTURO Entry 1 Entry 2 Entry 3 Case Attendee Vern TAVERAS, Lisa Blanco RN, Marilee Solano CST, Diana Feldman Role Performed Surgeon - Primary Lecturer Of Portuguese - Primary Scrub - Primary Time In 05/22/23 11:15:00 05/22/23 11:15:00 05/22/23 11:15:00 Time Out 05/22/23 11:30:00 05/22/23 11:30:00 05/22/23 11:30:00 Procedure CYSTOSCOPY LOCAL BOTOX CYSTOSCOPY LOCAL BOTOX CYSTOSCOPY LOCAL BOTOX INJECTION(.) INJECTION(.) INJECTION(.) Comments Last Modified By: Katya LE, Marilee Blanco RN, Marilee Blanco RN, Marilee Feldman 05/22/23 Apryl Feldman 05/22/23 Apryl P 05/22/23 11:26:33 11:26:33 11:26:33 [...] Outcomes Met? Yes INCONTINENCE Last Modified By: Katya LE, Marilee Feldman 05/22/23 10:46:22 Post-Care Text: The patient is [...] Position Verified Availability Equipment, Medication Time Out Vern TAVERAS, Lisa Montiel, Verified (If Participants Katya LE, Marilee Applicable) Xiomara Cagle CST, Kimberly A Time Out Complete 05/22/23 11:22:00 Allergies Reviewed? [...] By: Marilee Blanco RN 05/22/23 11:29 Normal [facility] Main OR Preoperative Recordo n 05-22-2023 Main OR Preoperative Record Holding Area Document Type FTURO Summary Primary Physician: Lisa Porras MD Finalized Date/Time: 05/22/23 10:32:24 Pt. Name: LIAMAISLINN D.O.B./Sex: 1960 Female Med Rec #: [id number] Physician: Lisa Porras MD Financial #: [id number] Pt. Type: O Room/Bed: / Admit/Disch: 05/22/23 [...] By: Diana Mcpherson RN 05/22/23 10:32 Normal [facility] Operative Reporton 3 Operative Report Patient: BARBARA WHEELER Age: 63 years Sex: Female : 1960 Associated Diagnoses: None Author: Lisa Porras MD Procedure Operative Information Details: Date/ Time: 05/22/2023 11:29:00. Pre-Op Dx: Feeling of incomplete bladder emptying (BVQ61-SU R39.14, Discharge, Medical), Mixed incontinence (EFA51-MB N39.46, Discharge, Medical), Urinary leakage (JDB09-JK R32, Discharge, Medical). Post-Op Dx: Same. Anesthesia [...] to [facility] in the remote past). Normal [facility] Comment on above: Result Comment: Elec tronically Signed By: Lisa Porras MD\.br\Date and Time Signed: 05/22/23 11:30 EDT Outpatient Surgery Discharge Instructionon 05-22-2023 Outpatient Surgery Discharge Instruction [place] [address] Patient Discharge Instructions PERSON INFORMATION Name: AISLINN [...] Follow up: With: Address: When: Lisa Porras [address] [place] [address] [phone] Business (1) [address] [address] [phone] Business (1) Comments: Office to schedule follow [...] you have a fever over 100 degrees. LIAM Humphries DONNA M, have received the attached patient education materials/instructions and have verbalized understanding: May we do a follow up call? Yes No I was present when discharge instructions were given 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ature Date Clinican/Nurse Signature _ Date You may receive a survey from [employer] asking you to rate your care experience. Your feedback is important and will help us understand what we do well and how we can improve the quality of care we provide to you, your loved ones and our community. It?s an honor to serve you. Thank you for choosing [facility] Normal [facility] Consultation Noteon 05-19-20 Consultation Note [id number]#1.00C D:127 Normal [facility] A1C HEMOGLOBINon 05-18-2023 HbA1c (Bld) [Mass fraction] 14.0 % [facility] Other [facility] 05-18-2023 [facility] AISLINN WHEELER ([id number]) 1960 F Date Time Provider Department 05/18/23 TAURUS BALLARDRaquel During your visit today, we recorded the following information about you: Latosha Faulkner 05/18/2023 1:01 PM Signed Consult notes sent back to Dr. Lisa Porras , phone [phone]. From Dr. Ballard office. Allergies As of [...] Encounter Status:Closed by DERIK FERNANDEZ on 06/09/23 [facility] Glucose - FINGER STICKon Glucose [Mass/Vol] 429 mg/dL [employer] Other HbA1c (Bld) [Mass fraction]o n 05-18-2023 A1C HEMOGLOBIN [employer] Other CNOVon 05-17-2023 CNOV Office Visit (URFHR) AISLINN WHEELER ([id number]) 1960 F Date Time Provider Department 05/17/23 1:10 PM TAURUS BALLARD URFHR During your visit today, we recorded the following information about you: Temperature Pulse Blood pressure Weight 97.5 degrees 70/minute 172/81 60.1 kg Taurus Ballard MD 05/17/2023 1:35 PM Signed [facility] FOLLOW-UP PATIENT HISTORY AND PHYSICAL EXAM [...] 1.92 01/19/[address] scan (outside records) [facility] Flipboard 09/28/21 IMPRESSION: Since the prior CT scan [...] other structures) (more content not included)... Normal [facility] C Urineon 05-13-2023 Bacteria identified Cx Nom [...] Locations R1: This test was performed at: [facility], [address] [place] [address], [facility]- , , [facility] Comment on above: Performed By: #### 2 [id number] #### [facility] [address] [place] [address] Physician Referralon 023 Physician Referral [id number]#1.00CD :127 PATIENT IS SCHEDULED 05/17/2023 [facility] Consultation Noteon 05-04-20 23 Consultation Note [id number]#1.00CD :127 [facility] Insurance Correspondenceon 0 05-04-2023 Insurance Correspondence [id number]#1.00 CD:127 Normal [facility] Urology Office/Clinic Noteon 05-04-2023 Urology Office/Clinic Note [...] mass on Kidney was not cancerous. However php architect told her she has kidney cancer. Denies [...] PSH lap cholecystectomy, open hysterectomy -Continues with php architect for CKD3 1. Renal cyst (N28.1: Cyst [...] pt to tertiary center, Dr. Ballard at [facility] for evaluation of robotic left cyst decortication -Pt states php architect told her she has cancer. 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 Ordered: [id number] Measure Post Void residual urine and/or bladder capacity by US- non-imaging Urnls Dip Stick Auto w/o Microscopy POC 60418 2. Mixed incontinence (N39.46: Mixed incontinence) Pt [...] of Botox. (more content not included)... Normal [facility] Comment on above: Result Comment: Elec tronically Signed By: Lisa Porras MD\.br\Date and Time Signed: 05/04/23 14:11 EDT Ambulatory Visit Summaryon 0 05-03-2023 Ambulatory Visit Summary AISLINN WHEELER :1960 Visit Date:05/03/2023 Ambulatory Visit Instructions Your Diagnosis Renal mass Renal cyst Mixed incontinence Feeling of incomplete bladder emptying Glucosuria Tests Performed Urnls Dip Stick Auto w/o Microscopy POC 42477 Your Care Team Attending Physician - Lisa [...] Follow-Up Appointments Monday 12:30 PM EDT Where: [facility] Monday 10:30 AM EDT Where: [facility] You Need to Schedule the Following Appointments Follow Up with Vern TAVERAS, Lisa Montiel, EMELINA, URO When: Comments: Sched Botox. Where: Medications What How Much When Instructions New cephalexin (Keflex 500 mg Cap) 1 Capsules By Mouth 2 times a day Duration: 3 Days Start one day prior to procedure Pickup at [facility] New estradiol topical (Estrace 0.1 mg/ g Cream) See instructions Refills: 3 apply pea size amount to urethra/ inner vagina 3x/ week x 1 month, then 2x/ week for maintainence Pickup at [facility] Unchanged trospium (trospium 20 mg oral [...] physician if questions or concerns Pharmacy Information [facility]: [address] [place], [place] [id number] [phone] Test Results Urnls Dip Stick Auto w/o Microscopy POC 07382 (05/03/2023) Bilirubin Urine Dipstick - Negative Blood Urine Dipstick - Trace-intact Glucose Urine Dipstick - 3+ 1000 mg/dl Ketones Urine Dipstick - Negative Leukocytes Urine Dipstick - Negative Nitrite Urine Dipstick - Negative Protein Urine Dipstick - Trace Specific Pyatt Urine Dipstick - 1.015 Urine Appearance Urine [...] are saf (more content not included)... Normal [facility] Patient Educationon 05-03-20 Patient Education Obstetrics and [...] provider. Document Revised: 12/16/2021 Document Reviewed: 12/16/2021 [employer] Patient Education ? 2022 [employer]. Normal [facility] Screenson 05-03-2023 Screens [id number] CD:127 Normal [facility] C Urineon 04-20-2023 Bacteria identified Cx Nom (U) Microbiology PROCEDURE: Urine Culture [R1] SOURCE: U CleanCatch BODY SITE: COLLECTED DATE/TIME: 04/18/2023 11:52 EDT RECEIVED DATE/TIME: 04/18/2023 19:20 EDT START DATE/TIME: 04/18/2023 19:20 EDT FREE TEXT SOURCE: CATALINA VIRGEN, HEIDY [...] Locations R1: This test was performed at: [facility], [address] [place] [address], [address]- , , [facility] Comment on above: Performed By: #### 2 [id number] #### [facility] [address] [place] [address] Ambulatory Visit Summaryon 0 04-18-2023 Ambulatory Visit Summary LIAMAISLINN PAEZ :1960 Visit Date:04/18/2023 Ambulatory Visit Instructions Your Diagnosis Urinary tract infection Your Care Team Attending Physician - Lisa [...] Lisa Porras MD Where: [facility] Screenson 02-23-2023 Screens [id number] CD:127 [facility] Ambulatory Visit Summaryon 0 02-22-2023 Ambulatory Visit Summary LIAMAISLINN :1960 Visit Date:02/22/2023 Ambulatory Visit Instructions Your Diagnosis Renal mass Renal cyst Mixed incontinence Feeling of incomplete bladder emptying Glucosuria Tests Performed Urnls Dip Stick Auto w/o Microscopy POC [address]2239 Your Care Team Attending Physician - Lisa [...] Follow-Up Appointments Monday 10:00 AM EDT With: Vern TAVERAS, Lisa Montiel Where: [facility] Patient Educationon 02-23-20 Patient Education Obstetrics and Gynecology Kegel Exercises [...] provider. Document Revised: 12/16/2021 Document Reviewed: 12/16/2021 [employer] Patient Education ? 2022 [employer]. [employer] [facility] Urology Office/Clinic Noteon 02-22-2023 Urology Office/Clinic Note [...] PSH lap cholecystectomy, open hysterectomy -Continues with php architect after referred last visit 1. Renal mass [...] stopped and the (more content not included)... Normal [facility] Comment on above: Result Comment: Elec tronically Signed By: Vern TAVERAS, Lisa M.\.br\Date and Time Signed: 02/22/23 10:14 EDT\.br\Electronically Co-Signed By: Marilee Gray.br\Date and Time Co-Signed: 02/22/23 09:36 EDT Lab Reportson 02-20-2023 Lab Reports [id number] D:127 Normal [facility] RAD - CT Reporton 02-20-2023 RAD - CT Report [id number]#1.00CD :127 Normal [facility] Physician Orderon 02-01-2023 Physician Order [id number]#1.00CD :127 Normal [facility] Consultation Noteon 01-08-20 Consultation Note [id number]#1.00C D:127 Normal [facility] XR FOOT LT MIN 3 VIEWSon XR FOOT LT MIN 3 VIEWS Normal [facility] MG MAMM SCREEN 3D ALINE CADon 12-28-2022 MG MAMM SCREEN 3D ALINE CAD Normal [facility] XR DEXA BONE DENSITYon 12-28 XR DEXA BONE DENSITY Normal [facility] NM STRESS/REST MULTIon 12-15 NM STRESS/REST MULTI Normal [facility] XR FOOT LT MIN 3 VIEWSon XR FOOT LT MIN 3 VIEWS Normal [facility] Physician Referralon 023 Physician Referral [id number]#1.00C D:127 Normal [facility] CT FOOT LT WO CONon 10-28-19 CT FOOT LT WO CON Normal [facility] XR FOOT LT MIN 3 VIEWSon XR FOOT LT MIN 3 VIEWS Normal [facility] XR FOOT LT MIN 3 VIEWSon XR FOOT LT MIN 3 VIEWS Normal [facility] XR FOOT LT MIN 3 VIEWSon XR FOOT LT MIN 3 VIEWS Normal [facility] XR FOOT LT MIN 3 VIEWSon XR FOOT LT MIN 3 VIEWS Normal [facility] XR FOOT LT MIN 3 VIEWSon XR FOOT LT MIN 3 VIEWS Normal [facility] US KIDNEYSon 09-15-2022 US KIDNEYS Normal [facility] XR FOOT LT MIN 3 VIEWSon XR FOOT LT MIN 3 VIEWS Normal [facility] XR FOOT LT MIN 3 VIEWSon XR FOOT LT MIN 3 VIEWS Normal [facility] XR FOOT LT MIN 3 VIEWSon XR FOOT LT MIN 3 VIEWS Normal [facility] CBC AUTO DIFFon 08-03-2022 BASO # 0.0 103/ul Normal 0.0-0.1 [facility] Comment on above: Performed By: #### C BC ####[facility] [address] [place] [address]Dr. Ricardo Rocha Basophils/100 WBC (Bld) 0.5 % Normal 0.2-2.0 [facility] Comment on above: Performed By: #### C BC ####[facility] [address] [place] [address]Dr. Ricardo Rocha EO # 0.1 103/ul Normal 0.0-0.7 [facility] Comment on above: Performed By: #### C BC ####[facility] [address] [place] [address]Dr. Ricardo Rocha Eosinophils/100 WBC (Bld) 1.2 % Normal 0.9-7.0 [facility] Comment on above: Performed By: #### C BC ####[facility] [address] [place] [address]Dr. Ricardo Rocha Erythrocyte distribution width (RBC) [Ratio] 15.0 % Normal 11.0-15.0 [facility] Comment on above: Performed By: #### C BC ####[facility] [address] [place] [address]Dr. Ricardo Rocha Hematocrit (Bld) [Volume fraction] 29.5 % Critically low 36.0-48.0 [facility] Comment on above: Performed By: #### C BC ####[facility] [address] [place] [id number]. Ricardo Rocha Hemoglobin (Bld) [Mass/Vol] 9.3 g/dL Critically low 12.0-16.0 [facility] Comment on above: Performed By: #### C BC ####[facility] [address] [place] [id number]. Ricardo Rocha IG # 0.04 10e3/ul Critically high 0.00-0.03 [facility] Comment on above: Performed By: #### C BC ####[facility] [address] [place] [address]Dr. Ricardo Rocha IG % 0.5 % Normal 0.0-0.[address] [facility] Comment on above: Performed By: #### C BC ####[facility] [address] [place], [place] [address]Dr. Ricardo Rocha LYMPH # 1.4 103/ul Normal 1.2-3.8 [facility] Comment on above: Performed By: #### C BC ####[facility] [address] [place] [address]Dr. Ricardo Rocha Lymphocytes/100 WBC (Bld) 17.2 % Critically low 20.5-60.[address] [facility] Comment on above: Performed By: #### C BC ####[facility] [address] [place] [address]Dr. Ricardo Rocha MANUAL DIFF REQ NO Normal [facility] Comment on above: Performed By: #### C BC ####[facility] [address] [place], [place] [address]Dr. Ricardo Rocha MCH (RBC) [Entitic mass] 25.2 pg Critically low 26.7-34.0 [facility] Comment on above: Performed By: #### C BC ####[facility] [address] [place] [address]Dr. Ricardo Rocha MCHC (RBC) [Mass/Vol] 31.5 g/dL Normal 29.9-35.2 [facility] Comment on above: Performed By: #### C BC ####[facility] [address] [place] [phone]. Ricardo Rocha MCV (RBC) [Entitic vol] 79.9 fL Critically low 81.0-99.0 [facility] Comment on above: Performed By: #### C BC ####[facility] [address] [place] [id number]. Ricardo Rocha MONO # 0.6 103/ul Normal 0.3-0.8 [facility] Comment on above: Performed By: #### C BC ####[facility] [address] [place] [phone]. Ricardo Rocha Monocytes/100 WBC (Bld) 7.6 % Normal 1.7-12.0 [facility] Comment on above: Performed By: #### C BC ####[facility] [address] [place], [place] [address]Dr. Ricardo Rocha NEUT # 5.9 103/ul Normal 1.4-6.5 [facility] Comment on above: Performed By: #### C BC ####[facility] [address] [place], [place] [address]Dr. Ricardo Rocha Neutrophils/100 WBC (Bld) 73.0 % Normal 43.0-75.0 [facility] Comment on above: Performed By: #### C BC ####[facility] Yvrezhxpvo[address] [place], [place] [address]Dr. Ricardo Rocha Platelet mean volume (Bld) [Entitic vol] 11.4 fL Normal 9.5-13.5 [facility] Comment on above: Performed By: #### C BC ####[facility] Lvhhpnndbz6[address] [place], [place] [address]Dr. Ricardo Rocha PLT 253 103/ul Normal 150-450 [facility] Comment on above: Performed By: #### C BC ####[facility] Duasrvhswn[address] [place], [place] [address]Dr. Ricardo Rocha RBC 3.69 106/ul Critically low 4.20-5.40 [facility] Comment on above: Performed By: #### C BC ####[facility] Dcfmtqdbqw0155 [place] [id number]. Ricardo Rocha WBC 8.0 103/ul Normal 4.0-11.[address] [facility] Comment on above: Performed By: #### C BC ####[facility] Boqprjlnfz98[address] [place], [place] [address]Dr. Ricardo Rocha CRPon 08-03-2022 CRP 3.1 mg/dL Critically high <=1.0 [facility] Comment on above: Performed By: #### C RP, BMP, URIC ####[facility] Zmcjzcyogf4[address] [place], [place] [address]Dr. Ricardo Rocha CULTURE BLOODon 08-03-2022 Microscopic examination of blood, culture Culture Observations: NO GROWTH AT 5 DA[address] [facility] Comment on above: Performed By: #### B LDCX2 ####[facility] Hndttnrqke[address] [place], [place] [address]Dr. Ricardo Rocha Microscopic examination of blood, culture Culture Observations: NO GROWTH AT 5 DA[address]. Normal [facility] Comment on above: Performed By: #### B LDCX1 ####[facility] Vjpfiudynu3[address] [place], [place] [address]Dr. Ricardo Rocha ER URINE PROFILEon 2 Bilirubin Ql (U) Negative Normal NEGATIVE [facility] Comment on above: Performed By: #### E RUR ####[facility] Bytkwuqoky075[address] [place], [place] [address]Dr. Nanomarcial Aj Clarity (U) CLEAR Normal CLEAR [facility] Comment on above: Performed By: #### E RUR ####[facility] Clezpdrfsj2357[address] [place], [place] [address]Dr. Nanomarcial Aj Color (U) LT. YELLOW Normal YELLOW [facility] Comment on above: Performed By: #### E RUR ####[facility] Csprbzgakv193[address] [place], [place] [address]Dr. Ricardo Rocha ERUAHD A micrscopic examination will be performed if indicated. Normal [facility] Comment on above: Performed By: #### E RUR ####[facility] Gplxebsdko5862 [place] [address]Dr. Ricardo Rocha Glucose Ql (U) 100 mg/dl Abnormal NEGATIVE [facility] Comment on above: Performed By: #### E RUR ####[facility] Smefdqoerd3215 [place] [address]Dr. Ricardo Rocha Hemoglobin Ql (U) Negative Normal NEGATIVE [facility] Comment on above: Performed By: #### E RUR ####[facility] Sabbzvqybp[address] [place], [place] [address]Dr. Ricardo Rocha Ketones Ql (U) Negative Normal NEGATIVE [facility] Comment on above: Performed By: #### E RUR ####[facility] Drdwtuusle1652[address] [place], [place] [address]Dr. Ricardo Aj LEUKOCYTES Negative Normal NEGATIVE [facility] Comment on above: Performed By: #### E RUR ####[facility] Dmrgdrofha209[address] [place], [place] [address]Dr. Ricardo Rocha Nitrite Ql (U) Negative Normal NEGATIVE [facility] Comment on above: Performed By: #### E RUR ####[facility] Vbqbxixxcf336[address] [place], [place] [address]Dr. Ricardo Rocha pH (U) 6.0 [pH] Normal 5-[address] [facility] Comment on above: Performed By: #### E RUR ####[facility] Flixbjcztu7[address] [place], [place] [address]Dr. Ricardo Rocha SPEC GRAVITY 1.010 Normal 1.005-<=1.[address] [facility] Comment on above: Performed By: #### E RUR ####[facility] Ntdbydhvvf[address] [place], [place] [address]Dr. Ricardo Rocha UA PROTEIN Negative Normal NEGATIVE/ TRACE [facility] Comment on above: Performed By: #### E RUR ####[facility] Pmbjhavnoo9[address] [place], [place] [address]Dr. Ricardo Rocha UR MICRO IND NOT INDICATED Normal [facility] Comment on above: Performed By: #### E RUR ####[facility] Idoujdxyko[address] [place], [place] [address]Dr. Ricardo Rocha Urobilinogen Qn (U) 0.2 {Madeleine'U}/dL Normal 0.2 - 1. [address] [facility] Comment on above: Performed By: #### E RUR ####[facility] Qviqgkvsmh2970 [place] [address]Dr. Ricardo Rocha LACTATE/LACTIC ACIDon 2021 Lactate [Moles/Vol] 0.5 mmol/L Normal 0.4-1.9 [facility] Comment on above: Performed By: #### L ACT ####[facility] Kmqfhukelt2583 [place] [address]Dr. Ricardo Rocha PROF CHEM 8 (BAS METB)on Anion gap [Moles/Vol] 12.9 mmol/L Normal [facility] Comment on above: Performed By: #### C RP, BMP, URIC ####[facility] Peecxaukfg38[address] [place] [address]Dr. Ricardo Rocha Calcium [Mass/Vol] 9.0 mg/dL Normal 8.5-10.1 [facility] Comment on above: Performed By: #### C RP, BMP, URIC ####[facility] Kzdkdrrcvy[address] [place], [place] [address]Dr. Ricardo Rocha Chloride [Moles/Vol] 102 mmol/L Normal 98-[address] [facility] Comment on above: Performed By: #### C RP, BMP, URIC ####[facility] Wpbdkliafs4395 [place] [address]Dr. Ricardo Rocha CO2 [Moles/Vol] 23.9 mmol/L Normal 21.0-32.0 [facility] Comment on above: Performed By: #### C RP, BMP, URIC ####[facility] Frirqezkkx0666 [place] [address]Dr. Ricardo Rocha Creatinine [Mass/Vol] 1.36 mg/dL Critically high 0.55-1.[address] [facility] Comment on above: Performed By: #### C RP, BMP, URIC ####[facility] Zctndzikpa1910 [place] [address]Dr. Ricardo Rocha EGFR-AF VENEZUELAN 47 mL/min/1.73m2 Critically low >=[address] [facility] Comment on above: Performed By: #### C RP, BMP, URIC ####[facility] Txqdzemtxp6358 [place] [address]Dr. Ricardo Rocha EGFR-NON AF VENEZUELAN 39 mL/min/1.73m2 Critically low >=[address] [facility] Comment on above: Performed By: #### C RP, BMP, URIC ####[facility] Uufmtfgybm4072 [place] [address]Dr. Ricardo Rocha Glucose [Mass/Vol] 125 mg/dL Critically high 74-106 [facility] Comment on above: Performed By: #### C RP, BMP, URIC ####[facility] Wgiqlpedph0349 [place] [address]Dr. Ricardo Rocha Potassium [Moles/Vol] 4.8 mmol/L Normal 3.5-5.[address] [facility] Comment on above: Performed By: #### C RP, BMP, URIC ####[facility] Jzfryewveg7816 [place] [address]Dr. Ricardo Rocha Sodium [Moles/Vol] 134 mmol/L Critically low 136-145 [facility] Comment on above: Performed By: #### C RP, BMP, URIC ####[facility] Ruhkqysbxx[address] [place] [address]Dr. Ricardo Rocha Urea nitrogen [Mass/Vol] 22.0 mg/dL Critically high 7.0-18.[address] [facility] Comment on above: Performed By: #### C RP, BMP, URIC ####[facility] Euivltipph9566 [place] [address]Dr. Ricardo Rocha Urea nitrogen/Creatinine [Mass ratio] 16.2 mg/mg Normal [facility] Comment on above: Performed By: #### C RP, BMP, URIC ####[facility] Iqokqfmkmh3232 [place] [address]Dr. Ricardo Rocha SED RATE [facility] 2021 SED RATE 95 mm/hr Critically high <=30 [facility] Comment on above: Performed By: #### S EDR ####[facility] Lvdbsgyebu3948 [place] [address]Dr. Ricardo Rocha URIC ACID SERUMon 08-03-2022 Urate [Mass/Vol] 4.7 mg/dL Normal 2.6-6.0 [facility] Comment on above: Performed By: #### C RP, BMP, URIC ####[facility] Ntqkudxlvx0225[address] [place], [place] [address]Dr. Ricardo Rocha XR FOOT LT MIN 3 VIEWSon XR FOOT LT MIN 3 VIEWS Normal [facility] PROF CHEM 8 (BAS METB)on Anion gap [Moles/Vol] 13.8 mmol/L Normal [facility] Comment on above: Performed By: #### B MP ####[facility] Ogkqfmpwuo99[address] [place], [place] [address]Dr. Ricardo Rocha Calcium [Mass/Vol] 8.9 mg/dL Normal 8.5-10.1 [facility] Comment on above: Performed By: #### B MP ####[facility] Vwsdeqmnxh0746[address] [place], [place] [address]Dr. Ricardo Rocha Chloride [Moles/Vol] 101 mmol/L Normal 98-107 [facility] Comment on above: Performed By: #### B MP ####[facility] Nlfgscztsn6912[address] [place], [place] [address]Dr. Ricardo Rocha CO2 [Moles/Vol] 22.8 mmol/L Normal 21.0-32.0 [facility] Comment on above: Performed By: #### B MP ####[facility] Exsoomidbq[address] [place], [place] [address]Dr. Ricardo Rocha Creatinine [Mass/Vol] 1.43 mg/dL Critically high 0.55-1.[address] [facility] Comment on above: Performed By: #### B MP ####[facility] Uvhhfajycv5654[address] [place], [place] [address]Dr. Ricardo Rocha EGFR-AF VENEZUELAN 45 mL/min/1.73m2 Critically low >=60 [facility] Comment on above: Performed By: #### B MP ####[facility] Xbbcdwkyjn7192 [place] [id number]. Ricardo Rocha EGFR-NON AF VENEZUELAN 37 mL/min/1.73m2 Critically low >=[address] [facility] Comment on above: Performed By: #### B MP ####[facility] Nqfkpintle7842 [place] [phone]. Ricardo Rocha Glucose [Mass/Vol] 279 mg/dL Critically high 74-106 T [facility] Comment on above: Performed By: #### B MP ####[facility] Pkzkatkllf5354 [place] [phone]. Ricardo Rocha Potassium [Moles/Vol] 4.6 mmol/L Normal 3.5-5.[address] [facility] Comment on above: Performed By: #### B MP ####[facility] Lfqxdckurj4153[address] [place], [place] [address]Dr. Ricardo Rocha Sodium [Moles/Vol] 133 mmol/L Critically low 136-145 [facility] Comment on above: Performed By: #### B MP ####[facility] Rupxhppomi[address] [place], [place] [address]Dr. Ricardo Rocha Urea nitrogen [Mass/Vol] 24.0 mg/dL Critically high 7.0-18.[address] [facility] Comment on above: Performed By: #### B MP ####[facility] Cknmyxljrf6538[address] [place], [place] [address]Dr. Ricardo Rocha Urea nitrogen/Creatinine [Mass ratio] 16.8 mg/mg Normal [facility] Comment on above: Performed By: #### B MP ####[facility] Getilmgtkc5014[address] [place], [place] [address]Dr. Ricardo Aj ACID FAST SMEAR AND CXon Acid Fast Culture Negative Normal [facility] Comment on above: Result Comment: No a amilcar fast bacilli isolated after 6 weeks. Performed By: #### A FB ####[facility] Chxwaojlzv7817 [place] [phone]. Ricardo Rocha Acid Fast Smear Negative Normal [facility] Comment on above: Performed By: #### A FB ####[facility] Xguvcssoel0728 [place] [phone]. Ricardo Rocha AF[employer] Specimen Processing Direct Inoculation Normal [facility] Comment on above: Performed By: #### A FB ####[facility] Lmnpszhvax3500 [place] [phone]. Ricardo Rocha [employer] Specimen Processing Tissue Grinding Normal [facility] Comment on above: Performed By: #### A FB ####[facility] Efgrtbswbs6214 [place] [address]Dr. Ricardo Rocha FUNGAL CULTUREon 07-11-2022 Fungus (Mycology) Culture Final report Normal [facility] Comment on above: Performed By: #### C XFUN ####[facility] Uumgjsjiog52[address] [place], [place] [address]Dr. Ricardo Rocha Fungus Stain Final report Normal [facility] Comment on above: Performed By: #### C XFUN ####[facility] Lnbxwzxtva75[address] [place], [place] [address]Dr. Ricardo Rocha Result 1 Comment Normal [facility] Comment on above: Result Comment: AAYUSH/ Calcofluor preparation: no fungus observed. Performed By: #### C XFUN ####[facility] Rsfkcjibbf[address] [place], [place] [address]Dr. Ricardo Rocha Result Comment: No y east or mold isolated after 4 weeks. PROF CHEM 8 (BAS METB)on Anion gap [Moles/Vol] 15.1 mmol/L Normal [facility] Comment on above: Performed By: #### B MP ####[facility] Acdkawivxb2632 [place] [address]Dr. Ricardo Rocha Calcium [Mass/Vol] 9.0 mg/dL Normal 8.5-10.1 [facility] Comment on above: Performed By: #### B MP ####[facility] Zmzmiopxlc9542 [place] [address]Dr. Ricardo Rocha Chloride [Moles/Vol] 101 mmol/L Normal 98-[address] [facility] Comment on above: Performed By: #### B MP ####[facility] Ghoofvfhfr6260 [place] [phone]. Ricardo Rocha CO2 [Moles/Vol] 18.5 mmol/L Critically low 21.0-32.[address] [facility] Comment on above: Performed By: #### B MP ####[facility] Fxionfkkep7517 [place] [phone]. Ricardo Rocha Creatinine [Mass/Vol] 2.05 mg/dL Critically high 0.55-1.[address] [facility] Comment on above: Performed By: #### B MP ####[facility] Gpwkfqpvna7899 [place] [phone]. Ricardo Aj EGFR-AF VENEZUELAN 30 mL/min/1.73m2 Critically low >=[address] [facility] Comment on above: Performed By: #### B MP ####[facility] Uydfytyqet8[address] [place], [place] [address]Dr. Ricardo Rocha EGFR-NON AF VENEZUELAN 24 mL/min/1.73m2 Critically low >=[address] [facility] Comment on above: Performed By: #### B MP ####[facility] Xdbmjowsut3057[address] [place], [place] [address]Dr. Ricardo Rocha Glucose [Mass/Vol] 134 mg/dL Critically high 74-106 T [facility] Comment on above: Performed By: #### B MP ####[facility] Mvnimulupg1789 [place] [address]Dr. Ricardo Rocha Potassium [Moles/Vol] 5.6 mmol/L Critically high 3.5-5.[address] [facility] Comment on above: Performed By: #### B MP ####[facility] Mwsfswvbjy6272 [place] [address]Dr. Ricardo Rocha Sodium [Moles/Vol] 129 mmol/L Critically low 136-145 [facility] Comment on above: Performed By: #### B MP ####[facility] Wtynkujnqc5612[address] [place], [place] [address]Dr. Ricardo Rocha Urea nitrogen [Mass/Vol] 57.0 mg/dL Critically high 7.0-18.[address] [facility] Comment on above: Performed By: #### B MP ####[facility] Frcppcrrpm5075 [place] [phone]. Ricardo Rocha Urea nitrogen/Creatinine [Mass ratio] 27.8 mg/mg Normal [facility] Comment on above: Performed By: #### B MP ####[facility] Fcvqigxrqr8114 [place] [phone]. Ricardo Aj CBC AUTO DIFFon 07-06-2022 BASO # 0.0 103/ul Normal 0.0-0.[address] [facility] Comment on above: Performed By: #### C BC ####[facility] Jyubmhpdbs9843 [place] [phone]. Nanomarcial Rocha Basophils/100 WBC (Bld) 0.6 % Normal 0.2-2.[address] [facility] Comment on above: Performed By: #### C BC ####[facility] Imsmsxctqb33[address] [place], [place] [address]Dr. Nanomarcial Rocha EO # 0.1 103/ul Normal 0.0-0.7 [facility] Comment on above: Performed By: #### C BC ####[facility] Bvrcdyovzm050[address] [place], [place] [address]Dr. Ricardo Aj Eosinophils/100 WBC (Bld) 1.7 % Normal 0.9-7.[address] [facility] Comment on above: Performed By: #### C BC ####[facility] Osrjzvrmlm[address] [place], [place] [address]Dr. Ricardo Rocha Erythrocyte distribution width (RBC) [Ratio] 15.2 % Critically high 11.0-15.0 [facility] Comment on above: Performed By: #### C BC ####[facility] Rbxxsqroep[address] [place], [place] [address]Dr. Ricardo Rocha Hematocrit (Bld) [Volume fraction] 34.6 % Critically low 36.0-48.[address] [facility] Comment on above: Performed By: #### C BC ####[facility] Aroigfheed[address] [place], [place] [address]Dr. Nanomarcial Aj Hemoglobin (Bld) [Mass/Vol] 10.5 g/dL Critically low 12.0-16.[address] [facility] Comment on above: Performed By: #### C BC ####[facility] Lqidxdwmkp3184 [place] [address]Dr. Ricardo Rocha IG # 0.01 10e3/ul Normal 0.00-0.[address] [facility] Comment on above: Performed By: #### C BC ####[facility] Zowbjydjpc0200 [place] [address]Dr. Ricardo Rocha IG % 0.2 % Normal 0.0-0.[address] [facility] Comment on above: Performed By: #### C BC ####[facility] Rwvktzzvau3742 [place] [address]Dr. Rciardo Rocha LYMPH # 2.4 103/ul Normal 1.2-3.8 [facility] Comment on above: Performed By: #### C BC ####[facility] Wvljbflinx1280 [place] [address]Dr. Ricardo Rocha Lymphocytes/100 WBC (Bld) 44.4 % Normal 20.5-60.[address] [facility] Comment on above: Performed By: #### C BC ####[facility] Zlrtmudzoc3002 [place] [address]Dr. Ricardo Rocha MANUAL DIFF REQ NO Normal [facility] Comment on above: Performed By: #### C BC ####[facility] Ktymvcmvmn2306 [place] [address]Dr. Ricardo Rocha MCH (RBC) [Entitic mass] 25.0 pg Critically low 26.7-34.[address] [facility] Comment on above: Performed By: #### C BC ####[facility] Lhcusabbzo0701 [place] [address]Dr. Ricardo Rocha MCHC (RBC) [Mass/Vol] 30.3 g/dL Normal 29.9-35.2 [facility] Comment on above: Performed By: #### C BC ####[facility] Zwwuqetzae8400 [place] [address]Dr. Ricardo Rocha MCV (RBC) [Entitic vol] 82.4 fL Normal 81.0-99.0 [facility] Comment on above: Performed By: #### C BC ####[facility] Fjznapwnqc3917 [place] [phone]. Ricardo Rocha MONO # 0.3 103/ul Normal 0.3-0.8 [facility] Comment on above: Performed By: #### C BC ####[facility] Sdgidgvyqu0793 [place] [phone]. Ricardo Rocha Monocytes/100 WBC (Bld) 5.1 % Normal 1.7-12.[address] [facility] Comment on above: Performed By: #### C BC ####[facility] Ogrqlznzbn5[address] [place], [place] [address]Dr. Ricardo Rocha NEUT # 2.5 103/ul Normal 1.4-6.5 [facility] Comment on above: Performed By: #### C BC ####[facility] Qgdowoqvpz144[address] [place], [place] [address]Dr. Ricardo Rocha Neutrophils/100 WBC (Bld) 48.0 % Normal 43.0-75.[address] [facility] Comment on above: Performed By: #### C BC ####[facility] Waqhfwwthc[address] [place], [place] [address]Dr. Ricardo Rocha Platelet mean volume (Bld) [Entitic vol] 10.7 fL Normal 9.5-13.5 [facility] Comment on above: Performed By: #### C BC ####[facility] Msiitbfvmb7154 [place] [phone]. Ricardo Rocha PLT 261 103/ul Normal 150-450 [facility] Comment on above: Performed By: #### C BC ####[facility] Wfmntaftgi[address] [place], [place] [address]Dr. Ricardo Rocha RBC 4.20 106/ul Normal 4.20-5.40 [facility] Comment on above: Performed By: #### C BC ####[facility] Xvvlovxbpa719[address] [place], [place] [address]Dr. Ricardo Rocha WBC 5.3 103/ul Normal 4.0-11.0 [facility] Comment on above: Performed By: #### C BC ####[facility] Dxvibshbuc4927 [place] [phone]. Ricardo Rocha GLYCOHEMOGLOBIN A1Con 2021 ADA RECOMMENDATION SEE BELOW Normal [facility] Comment on above: Result Comment: ADA RECOMMENDED LIMIT 4.0 - 6.0 ADA THERAPEUTIC TARGET < 7.0 ACTION SUGGESTED > 7.0 Performed By: #### A 1C ####[facility] Ocjxcjutqd4387 [place] [address]Dr. Ricardo Rocha Glucose [Mass/Vol] 289 mg/dL Normal [facility] Comment on above: Performed By: #### A 1C ####[facility] Vplouxvgjj1616 [place] [address]Dr. Ricardo Rocha HbA1c (Bld) [Mass fraction] 11.7 % Critically high 4.5-6.[address] [facility] Comment on above: Performed By: #### A 1C ####[facility] Ebpaldetzp30[address] [place], [place] [address]Dr. Ricardo Rocha LIPID PROFILEon 07-06-2022 CHOL-HDL RATIO NORM SEE BELOW Normal [facility] Comment on above: Result Comment: 3.3 - 4.4 LOW RISK 4.4 - 7.1 AVERAGE RISK 7.1 - 11.0 MODERATE RISK >11.0 HIGH RISK Performed By: #### T SH, CMP, LIPID ####[facility] Akgsbpfqct7803 [place] [phone]. Ricardo Rocha Cholesterol [Mass/Vol] 284 mg/dL Critically high <=200 [facility] Comment on above: Performed By: #### T SH, CMP, LIPID ####[facility] Fwuinzbtuf8993 [place] [phone]. Ricardo Rocha Cholesterol in HDL [Mass/Vol] 40 mg/dL Normal 40-60 [facility] Comment on above: Performed By: #### T SH, CMP, LIPID ####[facility] Rchjafnyvl4625 [place] [phone]. Ricardo Rocha Cholesterol in LDL [Mass/Vol] 167.8 mg/dL Normal [facility] Comment on above: Performed By: #### T SH, CMP, LIPID ####[facility] Ckyixkiaep7910 [place] [phone]. Ricardo Rocha Cholesterol.total/Ch olesterol in HDL [Mass ratio] 7.1 {ratio} Normal [facility] Comment on above: Performed By: #### T SH, CMP, LIPID ####[facility] Dafzufbsic[address] [place], [place] [address]Pm. Ricardo Rocha HDL NORMAL > or = 60 mg/dl - LO W CARDIOVASCULAR RISK <40 mg/dl - HIGH CARDIOVASCULAR RISK Normal [facility] Comment on above: Performed By: #### T SH, CMP, LIPID ####[facility] Mpdveygjpd3919 [place] [id number]. Ricardo Rocha LDL CALC NORMAL SEE BELOW Normal [facility] Comment on above: Result Comment: <100 mg/dl OPTIMAL 100 - 129 mg/dl NEAR OR ABOVE OPTIMAL 130 - 159 mg/dl BORDERLINE HIGH 160 - 189 mg/dl HIGH >190 mg/dl VERY HIGH Performed By: #### T SH, CMP, LIPID ####[facility] Enmaazkboh4788 [place] [phone]. Ricardo Rocha Triglyceride [Mass/Vol] 381 mg/dL Critically high <=[address] [facility] Comment on above: Performed By: #### T SH, CMP, LIPID ####[facility] Hknzzspols4690 [place] [phone]. Ricardo Rocha VLDL CALC 76.2 mg/dL Normal [facility] Comment on above: Performed By: #### T SH, CMP, LIPID ####[facility] Qemobdwsuj1090 [place] [phone]. Ricardo Rocha MICROALBUMIN, RAND URon 11- mALB <1.3 Normal <=30.[address] [facility] Comment on above: Performed By: #### M ALBR ####[facility] Knaskxwbwq1691 [place] [phone]. Ricardo Rocha PROF 14(COMP METB)on 022 Albumin [Mass/Vol] 3.3 g/dL Critically low 3.4-5.0 [facility] Comment on above: Performed By: #### T SH, CMP, LIPID ####[facility] Phfhrprbkc9460 [place] [address]Dr. Ricardo Aj Albumin/Globulin [Mass ratio] 0.5 {ratio} Normal [facility] Comment on above: Performed By: #### T SH, CMP, LIPID ####[facility] Fnqxbjgaqt4520 [place] [phone]. Ricardo Aj ALP [Catalytic activity/Vol] 129 U/L Critically high 46-[address] [facility] Comment on above: Performed By: #### T SH, CMP, LIPID ####[facility] Kndzbrihgb2984 [place] [address]Dr. Ricardo Rocha ALT [Catalytic activity/Vol] 22 U/L Normal 14-[address] [facility] Comment on above: Performed By: #### T SH, CMP, LIPID ####[facility] Apvcfwolam4125 [place] [address]Dr. Ricardo Rocha Anion gap [Moles/Vol] 16.1 mmol/L Normal [facility] Comment on above: Performed By: #### T SH, CMP, LIPID ####[facility] Cykrwdroho4853 [place] [address]Dr. Ricardo Rocha AST [Catalytic activity/Vol] 22 U/L Normal 15-[address] [facility] Comment on above: Performed By: #### T SH, CMP, LIPID ####[facility] Ucjwrjtbcf7438 [place] [address]Dr. Ricardo Rocha Bilirubin [Mass/Vol] 0.2 mg/dL Normal 0.2-1.[address] [facility] Comment on above: Performed By: #### T SH, CMP, LIPID ####[facility] Nvfkjraitd8285 [place] [address]Dr. Ricardo Rocha Calcium [Mass/Vol] 9.4 mg/dL Normal 8.5-10.1 [facility] Comment on above: Performed By: #### T SH, CMP, LIPID ####[facility] Oceuffkkts1049 [place] [address]Dr. Ricardo Rocha Chloride [Moles/Vol] 102 mmol/L Normal 98-107 [facility] Comment on above: Performed By: #### T SH, CMP, LIPID ####[facility] Xorzwsbluj8705 [place] [address]Dr. Ricardo Rocha CO2 [Moles/Vol] 18.4 mmol/L Critically low 21.0-32.[address] [facility] Comment on above: Performed By: #### T ANTONIA, CMP, LIPID ####[facility] Ieqcgkpxvh6950 [place] [address]Dr. Ricardo Rocha Creatinine [Mass/Vol] 2.01 mg/dL Critically high 0.55-1.02 [facility] Comment on above: Performed By: #### T ANTONIA, CMP, LIPID ####[facility] Hsfszdglpo5151 [place] [address]Dr. Ricardo Rocha EGFR-AF VENEZUELAN 30 mL/min/1.73m2 Critically low >=60 [facility] Comment on above: Performed By: #### T ANTONIA CMP, LIPID ####[facility] Dzlaouminw0849 [place] [address]Dr. Ricardo Rocha EGFR-NON AF VENEZUELAN 25 mL/min/1.73m2 Critically low >=60 [facility] Comment on above: Performed By: #### T ANTONIA, CMP, LIPID ####[facility] Okjscqcizj7884 [place] [address]Dr. Ricardo Rocha Globulin (S) [Mass/Vol] 6.3 g/dL Normal [facility] Comment on above: Performed By: #### T ANTONIA, CMP, LIPID ####[facility] Rzaicnrvnh5653 [place] [address]Dr. Ricardo Rocha Glucose [Mass/Vol] 118 mg/dL Critically high 74-106 [facility] Comment on above: Performed By: #### T ANTONIA, CMP, LIPID ####[facility] Vsnuhcsmub7466 [place] [address]Dr. Ricardo Rocha Potassium [Moles/Vol] 5.5 mmol/L Critically high 3.5-5.1 [facility] Comment on above: Performed By: #### T ANTONIA, CMP, LIPID ####[facility] Okywimbrgh3972 [place] [phone]. Ricardo Rocha Protein [Mass/Vol] 9.6 g/dL Critically high 6.4-8.2 [facility] Comment on above: Performed By: #### T SH, CMP, LIPID ####[facility] Kbczeyxucx3566 [place] [phone]. Ricardo Rocha Sodium [Moles/Vol] 131 mmol/L Critically low 136-145 [facility] Comment on above: Performed By: #### T SH, CMP, LIPID ####[facility] Hmmnsvcfll0200 [place] [address]Dr. Ricardo Rocha Urea nitrogen [Mass/Vol] 45.0 mg/dL Critically high 7.0-18.[address] [facility] Comment on above: Performed By: #### T SH, CMP, LIPID ####[facility] Knqxjihxdj[address] [place], [place] [address]Dr. Ricardo Rocha Urea nitrogen/Creatinine [Mass ratio] 22.4 mg/mg Normal [facility] Comment on above: Performed By: #### T SH, CMP, LIPID ####[facility] Jfazxeyyap0993 [place] [address]Dr. Ricardo Rocha TSHon 07-06-2022 TSH 1.178 uIU/mL Normal 0.358-3.740 [facility] Comment on above: Performed By: #### T SH, CMP, LIPID ####[facility] Wtzkmdfqkf2354 [place] [address]Dr. Ricardo Rocha UA RANDOM W/MICROSCOPICon BACTERIA NONE SEEN Normal NONE SEEN [facility] Comment on above: Performed By: #### U AMIC ####[facility] Psbjnvthtz[address] [place], [place] [address]Dr. Ricardo Rocha Bilirubin Ql (U) Negative Normal NEGATIVE [facility] Comment on above: Performed By: #### U AMIC ####[facility] Obfsbrrxpk6959 [place] [address]Dr. Ricardo Rocha CAST NONE SEEN Normal NONE SEEN [facility] Comment on above: Performed By: #### U AMIC ####[facility] Nsqyhdlwhn0156 [place] [address]Dr. Ricardo Rocha Clarity (U) CLEAR Normal CLEAR [facility] Comment on above: Performed By: #### U AMIC ####[facility] Kxhmspxmyf6764 [place] [address]Dr. Ricardo Rocha Color (U) LT. YELLOW Normal YELLOW [facility] Comment on above: Performed By: #### U AMIC ####[facility] Ogrvdenlwt1869 [place] [address]Dr. Nanomarcial Rocha Crystals LM Nom (Urine sed) NONE SEEN Normal NONE SEEN [facility] Comment on above: Performed By: #### U AMIC ####[facility] Cibyafnczq8433 [place] [address]Dr. Ricardo Rocha Epithelial cells LM Ql (Urine sed) NONE SEEN Normal NONE SEEN /RARE [facility] Comment on above: Performed By: #### U AMIC ####[facility] Fpraapxrou[address] [place], [place] [address]Dr. Ricardo Rocha Glucose Ql (U) Negative Normal NEGATIVE [facility] Comment on above: Performed By: #### U AMIC ####[facility] Gmrtoadxcb[address] [place], [place] [address]Dr. Yilan Rocha Hemoglobin Ql (U) Negative Normal NEGATIVE [facility] Comment on above: Performed By: #### U AMIC ####[facility] Gubqzgzqys[address] [place], [place] [address]Dr. Yilan Rocha Ketones Ql (U) Negative Normal NEGATIVE [facility] Comment on above: Performed By: #### U AMIC ####[facility] Pcgtqsuuad[address] [place], [place] [address]Dr. Yilan Rocha LEUKOCYTES Negative Normal NEGATIVE [facility] Comment on above: Performed By: #### U AMIC ####[facility] Pjgglnbvfc[address] [place], [place] [address]Dr. Yilan Rocha MUCOUS NONE SEEN Normal NONE SEEN [facility] Comment on above: Performed By: #### U AMIC ####[facility] Souittlwoq3338 [place] [address]Dr. Ricardo Rocha Nitrite Ql (U) Negative Normal NEGATIVE [facility] Comment on above: Performed By: #### U AMIC ####[facility] Jdvomasjyx5997 [place] [address]Dr. Ricardo Rocha pH (U) 5.5 [pH] Normal 5-9 [facility] Comment on above: Performed By: #### U AMIC ####[facility] Ruzgcjtukf[address] [place], [place] [address]Dr. Ricardo Rocha RBC NONE SEEN Abnormal 0-2 [facility] Comment on above: Performed By: #### U AMIC ####[facility] Cecvpqszvy9998[address] [place], [place] [address]Dr. Ricardo Rocha SPEC GRAVITY 1.020 Normal 1.005-<=1.02 5 [facility] Comment on above: Performed By: #### U AMIC ####[facility] Jwaryreyol[address] [place], [place] [address]Dr. Ricardo Rocha UA PROTEIN Negative Normal NEGATIVE/ TRACE [facility] Comment on above: Performed By: #### U AMIC ####[facility] Swukiylysx9[address] [place], [place] [address]Dr. Ricardo Rocha Urobilinogen Qn (U) 0.2 {Madeleine'U}/dL Normal 0.2 - 1. 0 [facility] Comment on above: Performed By: #### U AMIC ####[facility] Ccukgxatnr7[address] [place], [place] [address]Dr. Ricardo Rocha WBC NONE SEEN Normal NONE SEEN [facility] Comment on above: Performed By: #### U AMIC ####[facility] Enzbqnzcgb2864[address] [place], [place] [address]Dr. Ricardo Rocha CBC W MANUAL DIFFon 06-16-20 22 ATYPICAL LYMPH # Normal [facility] Comment on above: Performed By: #### C BCMAN ####[facility] Oebknyavar[address] [place], [place] [address]DrIrina Rocha ATYPICAL LYMPH % Normal [facility] Comment on above: Performed By: #### C BCRED ####[facility] Rqcwuvsezq8009 [place] [phone]. Yilan Rocha BAND # 0.2 103/ul Normal 0.0-0.3 [facility] Comment on above: Performed By: #### C DWAINE ####[facility] Jgntrnptll0058 [place] [phone]. Yilan Rocha BAND % 2 % Normal 0-5 [facility] Comment on above: Performed By: #### C BCRED ####[facility] Zegvisdfhu8700 [place] [phone]. Yilan Rocha BASOM # 0.00 103/ul Normal 0.00-0.10 [facility] Comment on above: Performed By: #### C DWAINE ####[facility] Celpnlwtjw4427 [place] [address]Dr. Yilan Rocha BASOM % 0.0 % Critically low 0.2-2.0 [facility] Comment on above: Performed By: #### C DWAINE ####[facility] Hrhbzcpwjr3152 [place] [address]Dr. Yilan Rocha BLAST # Normal [facility] Comment on above: Performed By: #### C DWAINE ####[facility] Hlhdtziwau9495 [place] [address]Dr. Yilan Rocha BLAST % Normal [facility] Comment on above: Performed By: #### C DWAINE ####[facility] Yscharxjku[address] [place], [place] [address]Dr. Yilan Rocha CORRECTED WBC Normal 4.0-11.0 [facility] Comment on above: Performed By: #### C DWAINE ####[facility] Wfyefyucvv0929 [place] [address]Dr. Yilan Rocha EOS # 0.11 103/ul Normal 0.00-0.70 [facility] Comment on above: Performed By: #### C DWAINE ####[facility] N[address]irrxfn[address] [place], [place] [address]Dr. Yilan Rocha EOS% 1.0 % Normal 0.9-7.0 [facility] Comment on above: Performed By: #### C DWAINE ####[facility] Evgmqwsjdf3656 [place], [place] [address]Be. Ricardo Rocha HCT 24.2 % Critically low 36.0-48.0 [facility] Comment on above: Performed By: #### C DWAINE ####[facility] Zqvbpfuffn1597 [place], [place] [address]Uq. Ricardo Rocha HGB 7.9 g/dl Critically low 12.0-16.0 [facility] Comment on above: Performed By: #### C DWAINE ####[facility] Ouzmyooshj5443 [place], [place] [address]Wu. Ricardo Rocha LYMPHM # 1.81 103/ul Normal 1.20-3.[address] [facility] Comment on above: Performed By: #### C DWAINE ####[facility] Sidztvaelw1523 [place] [phone]. Ricardo Rocha LYMPHM% 16.0 % Critically low 20.5-60.0 [facility] Comment on above: Performed By: #### C DWAINE ####[facility] Icyajzrvgu5161 [place], [place] [address]Zx. Ricardo Rocha MCH 25.2 pg Critically low 26.7-34.0 [facility] Comment on above: Performed By: #### C DWAINE ####[facility] Fvorbzicif4950 [place] [phone]. Ricardo Rocha MCHC 32.6 g/dl Normal 29.9-35.2 [facility] Comment on above: Performed By: #### C DWAINE ####[facility] Sexwvyvpdb1500 [place], [place] [address]Iz. Ricardo Rocha MCV 77.3 fL Critically low 81.0-99.0 [facility] Comment on above: Performed By: #### C DWAINE ####[facility] Jwkhcygdcb8146 [place], [place] [address]Es. Ricardo Rocha METAMYELOCYTE # 0.5 103/ul Normal [facility] Comment on above: Performed By: #### C DWAINE ####[facility] Uwzuteztap9471 [place], [place] [address]Gu. Ricardo Rocha METAMYELOCYTE % 4 % Normal [facility] Comment on above: Performed By: #### C DWAINE ####[facility] Ogyuknihzh8073 [place], [place] [address]Fh. Ricardo Rocha MONOM# 0.45 103/ul Normal 0.30-0.80 [facility] Comment on above: Performed By: #### C DWAINE ####[facility] Dkanpjewej6078 [place] [phone]. Ricardo Rocha MONOM% 4.0 % Normal 1.7-12.0 [facility] Comment on above: Performed By: #### C DWAINE ####[facility] Qtpcjsrlyv3056 [place] [phone]. Ricardo Rocha MPV 10.4 fL Normal 9.5-13.[address] [facility] Comment on above: Performed By: #### C DWAINE ####[facility] Rrasfgxfuq4582 [place] [phone]. Ricardo Rocha MYELOCYTE # 0.5 103/ul Normal [facility] Comment on above: Performed By: #### C DWAINE ####[facility] Azvsxmwipb7446 [place] [phone]. Ricardo Rocha MYELOCYTE % 4 % Normal [facility] Comment on above: Performed By: #### C DWAINE ####[facility] Ogeaxdodlu4569 [place] [phone]. Ricardo Rocha NRBC Normal [facility] Comment on above: Performed By: #### C DWAINE ####[facility] Natauujqxs4985 [place] [phone]. Ricardo Rocha PLT 325 103/ul Normal 150-450 [facility] Comment on above: Performed By: #### C DWAINE ####[facility] Xbbyagrfkk9105 [place] [phone]. Ricardo Rocha RBC 3.13 106/ul Critically low 4.20-5.40 [facility] Comment on above: Performed By: #### C EVELNYMAN ####[facility] Svxpuvgwsp7206 [place] [phone]. Ricardo Rocha RDW 13.7 % Normal 11.0-15.[address] [facility] Comment on above: Performed By: #### C BCMAN ####[facility] Lhzihyzmru7051 [place] [phone]. Ricardo Rocha SEG # 7.80 103/ul Critically high 1.40-6.50 [facility] Comment on above: Performed By: #### C BCMAN ####[facility] Acoflrnjxw1272 [place] [phone]. Ricardo Rocha SEG % 69.0 % Normal 43.0-75.[address] [facility] Comment on above: Performed By: #### C EVELYNMAN ####[facility] Unqbbkmfdw1018 [place] [phone]. Ricardo Rocha WBC 11.3 103/ul Critically high 4.0-11.0 [facility] Comment on above: Performed By: #### C DWAINE ####[facility] Dyeveytpel18[address] [place], [place] [address]Dr. Ricardo Rocha PROF 14(COMP METB)on 022 Albumin [Mass/Vol] 1.7 g/dL Critically low 3.4-5.0 [facility] Comment on above: Performed By: #### C MP ####[facility] Vhfdnnbadt2707 [place] [address]Dr. Ricardo Rocha Albumin/Globulin [Mass ratio] 0.4 {ratio} Normal [facility] Comment on above: Performed By: #### C MP ####[facility] Jgfcpwjnym7363 [place] [address]Dr. Ricardo Rocha ALP [Catalytic activity/Vol] 174 U/L Critically high 46-[address] [facility] Comment on above: Performed By: #### C MP ####[facility] Juiygbidis8493 [place] [address]Dr. Ricardo Rocha ALT [Catalytic activity/Vol] 14 U/L Normal 14-[address] [facility] Comment on above: Performed By: #### C MP ####[facility] Tjcaaqseml3859 [place] [address]Dr. Ricardo Rocha Anion gap [Moles/Vol] 10.8 mmol/L Normal [facility] Comment on above: Performed By: #### C MP ####[facility] Lqnkhbhjyr8311 [place] [phone]. Ricardo Rocha AST [Catalytic activity/Vol] 13 U/L Critically low 15-[address] [facility] Comment on above: Performed By: #### C MP ####[facility] Vqximutnsj192[address] [place], [place] [address]Dr. Ricardo Rocha Bilirubin [Mass/Vol] 0.3 mg/dL Normal 0.2-1.[address] [facility] Comment on above: Performed By: #### C MP ####[facility] Tptkcwmowq033[address] [place], [place] [address]Dr. Ricardo Rocha Calcium [Mass/Vol] 8.2 mg/dL Critically low 8.5-10.1 [facility] Comment on above: Performed By: #### C MP ####[facility] Cdjrvirclm7943[address] [place], [place] [address]Dr. Ricardo Rocha Chloride [Moles/Vol] 104 mmol/L Normal 98-[address] [facility] Comment on above: Performed By: #### C MP ####[facility] Xifsycgvja4748[address] [place], [place] [address]Dr. Ricardo Rocha CO2 [Moles/Vol] 22.4 mmol/L Normal 21.0-32.0 [facility] Comment on above: Performed By: #### C MP ####[facility] Obajxwuqnr164[address] [place], [place] [address]Dr. Ricardo Rocha Creatinine [Mass/Vol] 1.29 mg/dL Critically high 0.55-1.[address] [facility] Comment on above: Performed By: #### C MP ####[facility] Rtyhkszsqz33[address] [place], [place] [address]Dr. Ricardo Aj EGFR-AF VENEZUELAN 50 mL/min/1.73m2 Critically low >=60 [facility] Comment on above: Performed By: #### C MP ####[facility] Dkaaassmlw9463 [place] [address]Dr. Ricardo Rocha EGFR-NON AF VENEZUELAN 42 mL/min/1.73m2 Critically low >=[address] [facility] Comment on above: Performed By: #### C MP ####[facility] Hlompojahq0866 [place] [phone]. Ricardo Rocha Globulin (S) [Mass/Vol] 4.8 g/dL Normal [facility] Comment on above: Performed By: #### C MP ####[facility] Gxjqdqwnfo50[address] [place], [place] [address]Dr. Ricardo Rocha Glucose [Mass/Vol] 262 mg/dL Critically high 74-106 [facility] Comment on above: Performed By: #### C MP ####[facility] Vprlngtoye75[address] [place], [place] [address]Dr. Ricardo Rocha Potassium [Moles/Vol] 3.2 mmol/L Critically low 3.5-5.[address] [facility] Comment on above: Performed By: #### C MP ####[facility] Dcezoqucmi2411[address] [place], [place] [address]Dr. Ricardo Rocha Protein [Mass/Vol] 6.5 g/dL Normal 6.4-8.2 [facility] Comment on above: Performed By: #### C MP ####[facility] Hblirfjxxo35[address] [place], [place] [address]Dr. Ricardo Rocha Sodium [Moles/Vol] 134 mmol/L Critically low 136-145 [facility] Comment on above: Performed By: #### C MP ####[facility] Fohidlzywm6[address] [place], [place] [address]Dr. Ricardo Rocha Urea nitrogen [Mass/Vol] 20.0 mg/dL Critically high 7.0-18.[address] [facility] Comment on above: Performed By: #### C MP ####[facility] Hytngrdyop37[address] [place], [place] [address]Dr. Ricardo Rocha Urea nitrogen/Creatinine [Mass ratio] 15.5 mg/mg Normal [facility] Comment on above: Performed By: #### C MP ####[facility] Cktvwtptci1121 [place] [phone]. Ricardo Rocha CBC AUTO DIFFon 06-15-2022 BASO # 0.1 103/ul Normal 0.0-0.[address] [facility] Comment on above: Performed By: #### C BC ####[facility] Hdcprdkbid3733 [place] [phone]. Ricardo Aj Basophils/100 WBC (Bld) 0.7 % Normal 0.2-2.[address] [facility] Comment on above: Performed By: #### C BC ####[facility] Bhvbkcnvzl45[address] [place], [place] [address]Dr. Ricardo Rocha EO # 0.1 103/ul Normal 0.0-0.[address] [facility] Comment on above: Performed By: #### C BC ####[facility] Gwbrbbytjc[address] [place], [place] [address]Dr. Ricardo Aj Eosinophils/100 WBC (Bld) 0.7 % Critically low 0.9-7.[address] [facility] Comment on above: Performed By: #### C BC ####[facility] Yvvdgyhjmi[address] [place], [place] [address]Dr. Ricardo Rocha Erythrocyte distribution width (RBC) [Ratio] 13.7 % Normal 11.0-15.[address] [facility] Comment on above: Performed By: #### C BC ####[facility] Xgdxmqvw[address] [place], [place] [address]Dr. Ricardo Rocha Hematocrit (Bld) [Volume fraction] 26.7 % Critically low 36.0-48.[address] [facility] Comment on above: Performed By: #### C BC ####[facility] Mdefayovnv06[address] [place], [place] [address]Dr. Ricardo Rocha Hemoglobin (Bld) [Mass/Vol] 8.4 g/dL Critically low 12.0-16.[address] [facility] Comment on above: Performed By: #### C BC ####[facility] Fvdkqprlon[address] [place], [place] [address]Dr. Ricardo Rocha IG # 0.83 10e3/ul Critically high 0.00-0.03 [facility] Comment on above: Performed By: #### C BC ####[facility] Uzzttnmaje67[address] [place] [phone] Nanomarcial Rocha IG % 6.2 % Critically high 0.0-0.5 [facility] Comment on above: Performed By: #### C BC ####[facility] Shdirqdwmq6491 [place] [address]DrIrina Ricardo Aj LYMPH # 1.3 103/ul Normal 1.2-3.[address] [facility] Comment on above: Performed By: #### C BC ####[facility] Oraematkwt9497 [place] [address]DrIrina Nanomarcial Rocha Lymphocytes/100 WBC (Bld) 9.6 % Critically low 20.5-60.[address] [facility] Comment on above: Performed By: #### C BC ####[facility] Tdqzkobuoa7208 [place] [address]DrIrina Nanomarcial Rocha MANUAL DIFF REQ NO Normal [facility] Comment on above: Performed By: #### C BC ####[facility] Orlcbgprfu9202 [place] [phone] Ricardo Aj MCH (RBC) [Entitic mass] 25.1 pg Critically low 26.7-34.[address] [facility] Comment on above: Performed By: #### C BC ####[facility] Xtfzuxumqj9030 [place] [address]Dr. Ricardo Aj MCHC (RBC) [Mass/Vol] 31.5 g/dL Normal 29.9-35.[address] [facility] Comment on above: Performed By: #### C BC ####[facility] Onhdnspqvl6652 [place] [phone] Nanomarcial Rocha MCV (RBC) [Entitic vol] 79.7 fL Critically low 81.0-99.[address] [facility] Comment on above: Performed By: #### C BC ####[facility] Gvseppkgov3362 [place] [phone] Rocha MONO # 1.0 103/ul Critically high 0.3-0.8 [facility] Comment on above: Performed By: #### C BC ####[facility] Duapppwzlb7241 [place] [address]Dr. Ricardo Rocha Monocytes/100 WBC (Bld) 7.3 % Normal 1.7-12.0 [facility] Comment on above: Performed By: #### C BC ####[facility] Vwagsauikg9691 [place] [address]Dr. Ricardo Rocha NEUT # 10.2 103/ul Critically high 1.4-6.5 [facility] Comment on above: Performed By: #### C BC ####[facility] Xpxuilchki5083 [place] [address]Dr. Ricardo Rocha Neutrophils/100 WBC (Bld) 75.5 % Critically high 43.0-75.[address] [facility] Comment on above: Performed By: #### C BC ####[facility] Ddvasfnteo65[address] [place], [place] [address]Dr. Ricardo Rocha Platelet mean volume (Bld) [Entitic vol] 11.8 fL Normal 9.5-13.5 [facility] Comment on above: Performed By: #### C BC ####[facility] Uwweqxomzu[address] [place], [place] [address]Dr. Ricardo Rocha PLT 208 103/ul Normal 150-450 [facility] Comment on above: Performed By: #### C BC ####[facility] Dahrifkeac0043 [place] [address]Dr. Ricardo Rocha RBC 3.35 106/ul Critically low 4.20-5.40 [facility] Comment on above: Performed By: #### C BC ####[facility] Tpuehkzvjl3578 [place] [phone]. Ricardo Rocha WBC 13.5 103/ul Critically high 4.0-11.0 [facility] Comment on above: Performed By: #### C BC ####[facility] Tvwqtfuizj0391 [place] [phone]. Ricardo Rocha CULTURE BLOODon 06-15-2022 Microscopic examination of blood, culture Culture Observations: NO GROWTH AT 5 DAYS Normal [facility] Comment on above: Performed By: #### B LDCX2 ####[facility] Xcrlqhbsus3479 [place] [address]Dr. Ricardo Rocha Microscopic examination of blood, culture Culture Observations: NO GROWTH AT 5 DAYS Normal [facility] Comment on above: Performed By: #### B LDCX1 ####[facility] Lggpooyijm4659 [place] [address]Dr. Ricardo Aj Covid-19 PCR (CVDTB)on 05-22 SARS-CoV-2 (COVID-19) RNA ADRIEL+probe Ql (Unsp spec) Not detected Normal NOT DETECTED [facility] Comment on above: Result Comment: When diagnostic [...] for this test is supported by the Blood Bank Technician of Health and Human Service's declaration that [...] be used). Performed By: #### C VDTBH ####[facility] Heanyuhgfu5582 [place] [address]Dr. Ricardo Aj POINT OF CARE GLUCOSEon 05-22 Glucose [Mass/Vol] 366 mg/dL Critically high 74-106 [facility] Comment on above: Performed By: #### P OCGLUC ####[facility] Ivhvydwyju3983 [place] [address]Dr. Ricardo Rocha Glucose [Mass/Vol] 229 mg/dL Critically high 74-106 [facility] Comment on above: Performed By: #### P OCGLUC ####[facility] Xeyyykehru3631 [place] [address]Dr. Ricardo Rocha Glucose [Mass/Vol] 258 mg/dL Critically high 74-106 [facility] Comment on above: Performed By: #### P OCGLUC ####[facility] Xnlbkcgcrk5283 [place] [address]Dr. Ricardo Rocha PROF 14(COMP METB)on 022 Albumin [Mass/Vol] 1.8 g/dL Critically low 3.4-5.0 [facility] Comment on above: Performed By: #### C MP ####[facility] Lecawsjggh0[address] [place], [place] [address]Dr. Ricardo Rocha Albumin/Globulin [Mass ratio] 0.4 {ratio} Normal [facility] Comment on above: Performed By: #### C MP ####[facility] Qckgvymfpa9[address] [place], [place] [address]Dr. Ricardo Rocha ALP [Catalytic activity/Vol] 196 U/L Critically high 46-[address] [facility] Comment on above: Performed By: #### C MP ####[facility] Ljofpbgknw[address] [place], [place] [address]Dr. Ricardo Rocha ALT [Catalytic activity/Vol] 18 U/L Normal 14-[address] [facility] Comment on above: Performed By: #### C MP ####[facility] Fqwzoxzfbe0329[address] [place], [place] [address]Dr. Ricardo Rocha Anion gap [Moles/Vol] 16.3 mmol/L Normal [facility] Comment on above: Performed By: #### C MP ####[facility] Nvotcrveyg4976[address] [place], [place] [address]Dr. Ricardo Rocha AST [Catalytic activity/Vol] 22 U/L Normal 15-[address] [facility] Comment on above: Performed By: #### C MP ####[facility] Cghtxhlncg14[address] [place], [place] [address]Dr. Ricardo Rocha Bilirubin [Mass/Vol] 0.4 mg/dL Normal 0.2-1.[address] [facility] Comment on above: Performed By: #### C MP ####[facility] Okbybaadex0207 [place] [phone]. Ricardo Rocha Calcium [Mass/Vol] 8.2 mg/dL Critically low 8.5-10.1 [facility] Comment on above: Performed By: #### C MP ####[facility] Xnolwpjtpm1516 [place] [phone]. Ricardo Rocha Chloride [Moles/Vol] 103 mmol/L Normal 98-[address] [facility] Comment on above: Performed By: #### C MP ####[facility] Wxfzvgemfw8848 [place] [address]Dr. Ricardo Rocha CO2 [Moles/Vol] 19.0 mmol/L Critically low 21.0-32.[address] [facility] Comment on above: Performed By: #### C MP ####[facility] Cbpdlxvepk5386[address] [place], [place] [address]Dr. Ricardo Rocha Creatinine [Mass/Vol] 1.32 mg/dL Critically high 0.55-1.[address] [facility] Comment on above: Performed By: #### C MP ####[facility] Hklakstwvv4[address] [place], [place] [address]Dr. Ricardo Rocha EGFR-AF VENEZUELAN 49 mL/min/1.73m2 Critically low >=[address] [facility] Comment on above: Performed By: #### C MP ####[facility] Cgtclxgsmd[address] [place], [place] [address]Dr. Ricardo Aj EGFR-NON AF VENEZUELAN 41 mL/min/1.73m2 Critically low >=[address] [facility] Comment on above: Performed By: #### C MP ####[facility] Jipbtzvtmq4670 [place] [address]Dr. Ricardo Rocha Globulin (S) [Mass/Vol] 5.0 g/dL Normal [facility] Comment on above: Performed By: #### C MP ####[facility] Luotcwfcbi7924 [place] [phone]. Nanomarcial Aj Glucose [Mass/Vol] 228 mg/dL Critically high 74-106 [facility] Comment on above: Performed By: #### C MP ####[facility] Wfhudscnyz4786 [place] [address]Dr. Ricardo Rocha Potassium [Moles/Vol] 3.3 mmol/L Critically low 3.5-5.[address] [facility] Comment on above: Performed By: #### C MP ####[facility] Ejknmhfpfu07[address] [place], [place] [address]Dr. Ricardo Rocha Protein [Mass/Vol] 6.8 g/dL Normal 6.4-8.2 [facility] Comment on above: Performed By: #### C MP ####[facility] Beclvhwqjd7717[address] [place], [place] [address]Dr. Ricardo Rocha Sodium [Moles/Vol] 135 mmol/L Critically low 136-145 [facility] Comment on above: Performed By: #### C MP ####[facility] Srwutpznpg8039[address] [place], [place] [address]Dr. Ricardo Rocha Urea nitrogen [Mass/Vol] 23.0 mg/dL Critically high 7.0-18.[address] [facility] Comment on above: Performed By: #### C MP ####[facility] Isrtozgqoa6[address] [place], [place] [address]Dr. Ricardo Rocha Urea nitrogen/Creatinine [Mass ratio] 17.4 mg/mg Normal [facility] Comment on above: Performed By: #### C MP ####[facility] Upjzcpecga0189[address] [place], [place] [address]Dr. Ricardo Rocha UA (CLEAN/CATCH) SAFETY LEADER/MICRO I F IND.on 06-15-2022 Bilirubin Ql (U) Negative Normal NEGATIVE [facility] Comment on above: Performed By: #### U MICRO, UACSIND ####[facility] Nlggdesyex4456[address] [place], [place] [address]Dr. Ricardo Rocha Clarity (U) CLEAR Normal CLEAR [facility] Comment on above: Performed By: #### U MICRO, UACSIND ####[facility] Ivztnvaxib1748[address] [place], [place] [address]Dr. Ricardo Rocha Color (U) LT. YELLOW Normal YELLOW [facility] Comment on above: Performed By: #### U MICRO, UACSIND ####[facility] Xhfbnbvxtd4334 [place] [address]Dr. Ricardo Rocha Glucose Ql (U) 250 mg/dl Abnormal NEGATIVE [facility] Comment on above: Performed By: #### U MICRO, UACSIND ####[facility] Yffqogxrxs2250 [place] [address]Dr. Ricardo Rocha Hemoglobin Ql (U) TRACE-LYSED Abnormal NEGATIVE [facility] Comment on above: Performed By: #### U MICRO, UACSIND ####[facility] Ejrvufxggg9552 [place] [address]Dr. Ricardo Rocha Ketones Ql (U) 15 mg/dl Abnormal NEGATIVE [facility] Comment on above: Performed By: #### U MICRO, UACSIND ####[facility] Hktrdgxbtc85[address] [place], [place] [address]Dr. Ricardo Rocha LEUKOCYTES Negative Normal NEGATIVE [facility] Comment on above: Performed By: #### U MICRO, UACSIND ####[facility] Zyewqsyfvr5035[address] [place], [place] [address]Dr. Nanomarcial Rocha Nitrite Ql (U) Negative Normal NEGATIVE [facility] Comment on above: Performed By: #### U MICRO, UACSIND ####[facility] Ztmytdgnuw7647[address] [place], [place] [address]Dr. Nanomarcial Rocha pH (U) 6.0 [pH] Normal 5-[address] [facility] Comment on above: Performed By: #### U MICRO, UACSIND ####[facility] Vsxswiyhmh39[address] [place], [place] [address]Dr. Ricardo Rocha SPEC GRAVITY 1.010 Normal 1.005-<=1.[address] [facility] Comment on above: Performed By: #### U MICRO, UACSIND ####[facility] Yvmgkltctn[address] [place], [place] [address]Dr. Ricardo Rocha UA PROTEIN Negative Normal NEGATIVE/ TRACE [facility] Comment on above: Performed By: #### U MICRO, UACSIND ####[facility] Cdueheqwbs8[address] [place], [place] [address]Dr. Ricardo Rocha UR MICRO IND INDICATED Normal [facility] Comment on above: Performed By: #### U MICRO, UACSIND ####[facility] Xfjcxvguxj5906 [place] [address]Dr. Nanomarcial Rocha Urobilinogen Qn (U) 0.2 {Madeleine'U}/dL Normal 0.2 - 1. 0 [facility] Comment on above: Performed By: #### U MICRO, UACSIND ####[facility] Qodnzinhjh4155 [place] [address]Dr. Ricardo Rocha URINE MICROSCOPIC ONLYon BACTERIA NONE SEEN Normal NONE SEEN [facility] Comment on above: Performed By: #### U MICRO, UACSIND ####[facility] Lfvnmuhksp1187 [place] [address]Dr. Ricardo Rocha Bacteria identified Cx Nom (U) NOT INDICATED Normal [facility] Comment on above: Performed By: #### U MICRO, UACSIND ####[facility] Stoorddvhq7554 [place] [address]Dr. Ricardo Rocha CAST NONE SEEN Normal NONE SEEN [facility] Comment on above: Performed By: #### U MICRO, UACSIND ####[facility] Kdoyydtkhu2980 [place] [address]Dr. Ricardo Rocha Crystals LM Nom (Urine sed) NONE SEEN Normal NONE SEEN [facility] Comment on above: Performed By: #### U MICRO, UACSIND ####[facility] Dgskcftdom9474 [place] [address]Dr. Ricardo Rocha Epithelial cells LM Ql (Urine sed) FEW Abnormal NONE SEEN /RARE [facility] Comment on above: Performed By: #### U MICRO, UACSIND ####[facility] Hwdryrpboy4559 [place] [address]Dr. Nanolan Rocha MUCOUS NONE SEEN Normal NONE SEEN [facility] Comment on above: Performed By: #### U MICRO, UACSIND ####[facility] Ynskmwxhjc9210 [place] [address]Dr. Ricardo Rocha RBC 2-5 Abnormal 0-2 [facility] Comment on above: Performed By: #### U MICRO, UACSIND ####[facility] Cucxnsjqoq2368 [place] [phone]. Ricardo Rocha WBC 2-5 Abnormal NONE SEEN [facility] Comment on above: Performed By: #### U MICRO, UACSIND ####[facility] Rdiavrgndw3767 [place] [phone]. Ricardo Rocha YEAST PRESENT Abnormal NONE SEEN [facility] Comment on above: Performed By: #### U MICRO, UACSIND ####[facility] Rhpybskwuj3887 [place] [phone]. Ricardo Rocha CBC AUTO DIFFon 06-14-2022 BASO # 0.0 103/ul Normal 0.0-0.1 [facility] Comment on above: Performed By: #### C BC ####[facility] Bkrkifhpgm[address] [place], [place] [address]Dr. Ricardo Rocha Basophils/100 WBC (Bld) 0.4 % Normal 0.2-2.0 [facility] Comment on above: Performed By: #### C BC ####[facility] Xfdktwfrna09[address] [place], [place] [address]Dr. Ricardo Rocha EO # 0.0 103/ul Normal 0.0-0.7 [facility] Comment on above: Performed By: #### C BC ####[facility] Eoaxoqvomi[address] [place], [place] [address]Dr. Ricardo Rocha Eosinophils/100 WBC (Bld) 0.4 % Critically low 0.9-7.0 [facility] Comment on above: Performed By: #### C BC ####[facility] Wdzwvoojkk55[address] [place], [place] [address]Dr. Ricardo Rocha Erythrocyte distribution width (RBC) [Ratio] 13.8 % Normal 11.0-15.0 [facility] Comment on above: Performed By: #### C BC ####[facility] Cyfdyfdlti08[address] [place], [place] [address]Dr. Ricardo Rocha Hematocrit (Bld) [Volume fraction] 26.2 % Critically low 36.0-48.0 [facility] Comment on above: Performed By: #### C BC ####[facility] Oakuectqmk7164 [place] [address]Dr. Ricardo Rocha Hemoglobin (Bld) [Mass/Vol] 8.3 g/dL Critically low 12.0-16.[address] [facility] Comment on above: Performed By: #### C BC ####[facility] Qqjmsmruli6909 [place] [address]Dr. Ricardo Aj IG # 0.24 10e3/ul Critically high 0.00-0.03 [facility] Comment on above: Performed By: #### C BC ####[facility] Zovuqictzy2306 [place] [address]Dr. Ricardo Aj IG % 2.3 % Critically high 0.0-0.5 [facility] Comment on above: Performed By: #### C BC ####[facility] Axzczgomam[address] [place], [place] [address]Dr. Ricardo Rocha LYMPH # 1.1 103/ul Critically low 1.2-3.8 [facility] Comment on above: Performed By: #### C BC ####[facility] Pfpqcpzwhn7820 [place] [address]Dr. Ricardo Aj Lymphocytes/100 WBC (Bld) 10.2 % Critically low 20.5-60.[address] [facility] Comment on above: Performed By: #### C BC ####[facility] Rjfqsrsdgv4795 [place] [address]Dr. Nanomarcial Rocha MANUAL DIFF REQ NO Normal [facility] Comment on above: Performed By: #### C BC ####[facility] Dvlpdcgdoe3439 [place] [phone]. Ricardo Aj MCH (RBC) [Entitic mass] 25.5 pg Critically low 26.7-34.[address] [facility] Comment on above: Performed By: #### C BC ####[facility] Cjeywxrabb1835 [place] [phone]. Ricardo Aj MCHC (RBC) [Mass/Vol] 31.7 g/dL Normal 29.9-35.[address] [facility] Comment on above: Performed By: #### C BC ####[facility] Qqwjnwztyd9487 [place] [phone] Ricardo Aj MCV (RBC) [Entitic vol] 80.6 fL Critically low 81.0-99.0 [facility] Comment on above: Performed By: #### C BC ####[facility] Arivpoltve2323 [place] [phone] Mcgillmarcial Aj MONO # 0.7 103/ul Normal 0.3-0.8 [facility] Comment on above: Performed By: #### C BC ####[facility] Gjznidmkbv7151 [place] [address]Dr. Ricardo Rocha Monocytes/100 WBC (Bld) 6.7 % Normal 1.7-12.0 [facility] Comment on above: Performed By: #### C BC ####[facility] Plsynuxutj6570 [place] [address]Dr. Ricardo Rocha NEUT # 8.5 103/ul Critically high 1.4-6.5 [facility] Comment on above: Performed By: #### C BC ####[facility] Dthbuphdjt0054 [place] [address]Dr. Nanomarcial Rohca Neutrophils/100 WBC (Bld) 80.0 % Critically high 43.0-75.0 [facility] Comment on above: Performed By: #### C BC ####[facility] Noxzkhlnvp4703 [place] [phone]. Nanomarcial Aj Platelet mean volume (Bld) [Entitic vol] 12.1 fL Normal 9.5-13.5 [facility] Comment on above: Performed By: #### C BC ####[facility] Gobhczqryt2673 [place] [phone]. Ricardo Rocha PLT 173 103/ul Normal 150-450 [facility] Comment on above: Performed By: #### C BC ####[facility] Yndemoeycx9665 [place] [phone] Rocha RBC 3.25 106/ul Critically low 4.20-5.40 [facility] Comment on above: Performed By: #### C BC ####[facility] Xtzemkghby2844 [place] [phone]. Ricardo Rocha WBC 10.6 103/ul Normal 4.0-11.[address] [facility] Comment on above: Performed By: #### C BC ####[facility] Jqvhikyukv8342 [place] [phone]. Ricardo Aj POINT OF CARE GLUCOSEon 05-22 Glucose [Mass/Vol] 237 mg/dL Critically high 74-106 [facility] Comment on above: Performed By: #### P OCGLUC ####[facility] Ymvlcdvfna9800 [place] [address]Dr. Ricardo Rocha Glucose [Mass/Vol] 296 mg/dL Critically high 74-106 [facility] Comment on above: Performed By: #### P OCGLUC ####[facility] Zjdsdzgrsj8829 [place] [address]Dr. Ricardo Rocha Glucose [Mass/Vol] 406 mg/dL Critically high 74-106 [facility] Comment on above: Performed By: #### P OCGLUC ####[facility] Lxjytxlfsh[address] [place], [place] [address]Dr. Ricardo Rocha Glucose [Mass/Vol] 447 mg/dL Critically high 74-106 [facility] Comment on above: Performed By: #### P OCGLUC ####[facility] Xxvrrubudz9648 [place] [address]Dr. Ricardo Rocha Glucose [Mass/Vol] 319 mg/dL Critically high 74-106 [facility] Comment on above: Performed By: #### P OCGLUC ####[facility] Vtbyckkwjk4265 [place] [address]Dr. Ricardo Rocha PROF 14(COMP METB)on 022 Albumin [Mass/Vol] 1.6 g/dL Critically low 3.4-5.0 [facility] Comment on above: Performed By: #### C MP ####[facility] Ifebgbmgnt9[address] [place], [place] [address]Dr. Ricardo Aj Albumin/Globulin [Mass ratio] 0.3 {ratio} Normal [facility] Comment on above: Performed By: #### C MP ####[facility] Zrbcjwvtvt1276 [place] [address]Dr. Ricardo Aj ALP [Catalytic activity/Vol] 201 U/L Critically high 46-[address] [facility] Comment on above: Performed By: #### C MP ####[facility] Gkgomeogov5[address] [place], [place] [address]Dr. Ricardo Aj ALT [Catalytic activity/Vol] 23 U/L Normal 14-[address] [facility] Comment on above: Performed By: #### C MP ####[facility] Rgmigtnxwx7537[address] [place], [place] [address]Dr. Nanomarcial Aj Anion gap [Moles/Vol] 16.0 mmol/L Normal [facility] Comment on above: Performed By: #### C MP ####[facility] Hhiszznmjr49[address] [place], [place] [address]Dr. Ricardo Aj AST [Catalytic activity/Vol] 21 U/L Normal 15-[address] [facility] Comment on above: Performed By: #### C MP ####[facility] Aqpouliywm2477[address] [place], [place] [address]Dr. Nanomarcial Aj Bilirubin [Mass/Vol] 0.4 mg/dL Normal 0.2-1.[address] [facility] Comment on above: Performed By: #### C MP ####[facility] Wxlctaatio4192[address] [place], [place] [address]Dr. Ricardo Rocha Calcium [Mass/Vol] 7.6 mg/dL Critically low 8.5-10.1 [facility] Comment on above: Performed By: #### C MP ####[facility] Opmkvbnzrk6[address] [place], [place] [address]Dr. Ricardo Rocha Chloride [Moles/Vol] 105 mmol/L Normal 98-[address] [facility] Comment on above: Performed By: #### C MP ####[facility] Dthycwaswy6649[address] [place], [place] [address]Dr. Ricardo Rocha CO2 [Moles/Vol] 17.3 mmol/L Critically low 21.0-32.[address] [facility] Comment on above: Performed By: #### C MP ####[facility] Ddmnufjkcl[address] [place] [address]Dr. Nanomarcial Aj Creatinine [Mass/Vol] 1.54 mg/dL Critically high 0.55-1.[address] [facility] Comment on above: Performed By: #### C MP ####[facility] Jukcortwwv33[address] [place] [address]Dr. Ricardo Rocha EGFR-AF VENEZUELAN 41 mL/min/1.73m2 Critically low >=[address] [facility] Comment on above: Performed By: #### C MP ####[facility] Xpiyqrsfsc9465[address] [place], [place] [address]Dr. Ricardo Rocha EGFR-NON AF VENEZUELAN 34 mL/min/1.73m2 Critically low >=[address] [facility] Comment on above: Performed By: #### C MP ####[facility] Ogarobnlqd7232[address] [place], [place] [address]Dr. Ricardo Rocha Globulin (S) [Mass/Vol] 4.7 g/dL Normal [facility] Comment on above: Performed By: #### C MP ####[facility] Djzjyeshhw3444[address] [place], [place] [address]Dr. Ricardo Rocha Glucose [Mass/Vol] 277 mg/dL Critically high 74-106 [facility] Comment on above: Performed By: #### C MP ####[facility] Drqzpqtftn84[address] [place], [place] [address]Dr. Ricardo Rocha Potassium [Moles/Vol] 3.3 mmol/L Critically low 3.5-5.[address] [facility] Comment on above: Performed By: #### C MP ####[facility] Vzkjalnopp5036[address] [place], [place] [address]Dr. Ricardo Rocha Protein [Mass/Vol] 6.3 g/dL Critically low 6.4-8.2 Th e [facility] Comment on above: Performed By: #### C MP ####[facility] Zsepwpywkb0509[address] [place], [place] [address]Dr. Ricardo Rocha Sodium [Moles/Vol] 135 mmol/L Critically low 136-145 [facility] Comment on above: Performed By: #### C MP ####[facility] Gbnfyrgzpk8543[address] [place], [place] [address]Dr. Ricardo Rocha Urea nitrogen [Mass/Vol] 29.0 mg/dL Critically high 7.0-18.[address] [facility] Comment on above: Performed By: #### C MP ####[facility] Llbsrlkexu3158[address] [place], [place] [address]Dr. Ricardo Aj Urea nitrogen/Creatinine [Mass ratio] 18.8 mg/mg Normal [facility] Comment on above: Performed By: #### C MP ####[facility] Lcywwtieej198[address] [place], [place] [address]Dr. Ricardo Aj CBC AUTO DIFFon 06-13-2022 BASO # 0.0 103/ul Normal 0.0-0.[address] [facility] Comment on above: Performed By: #### C BC ####[facility] Zefkawnuun55[address] [place], [place] [address]Dr. Ricardo Rocha Basophils/100 WBC (Bld) 0.2 % Normal 0.2-2.[address] [facility] Comment on above: Performed By: #### C BC ####[facility] Zmbzixodik2533[address] [place], [place] [address]Dr. Nanomarcial Rocha EO # 0.1 103/ul Normal 0.0-0.[address] [facility] Comment on above: Performed By: #### C BC ####[facility] Axhjjzwmnw7868[address] [place], [place] [address]DrIrina Nanomarcial Rocha Eosinophils/100 WBC (Bld) 0.6 % Critically low 0.9-7.0 [facility] Comment on above: Performed By: #### C BC ####[facility] Efsnashars7569[address] [place], [place] [address]Dr. Ricardo Rocha Erythrocyte distribution width (RBC) [Ratio] 14.2 % Normal 11.0-15.[address] [facility] Comment on above: Performed By: #### C BC ####[facility] Hwnfyiqukm4082[address] [place], [place] [address]Dr. Ricardo Rocha Hematocrit (Bld) [Volume fraction] 27.9 % Critically low 36.0-48.0 [facility] Comment on above: Performed By: #### C BC ####[facility] Jsamnwgmpq80[address] [place] [address]Dr. Ricardo Rocha Hemoglobin (Bld) [Mass/Vol] 8.6 g/dL Critically low 12.0-16.0 [facility] Comment on above: Performed By: #### C BC ####[facility] Pbvvxntxjo6689 [place] [address]Dr. Ricardo Rocha IG # 0.08 10e3/ul Critically high 0.00-0.03 [facility] Comment on above: Performed By: #### C BC ####[facility] Uaniswjfuk3003 [place] [address]DrIrina Rocha IG % 0.8 % Critically high 0.0-0.5 [facility] Comment on above: Performed By: #### C BC ####[facility] Peklotlqne8075 [place] [address]DrIrina Rocha LYMPH # 0.9 103/ul Critically low 1.2-3.8 [facility] Comment on above: Performed By: #### C BC ####[facility] Wkvhlwkpmi5868 [place] [address]DrIrina Rocha Lymphocytes/100 WBC (Bld) 8.9 % Critically low 20.5-60.0 [facility] Comment on above: Performed By: #### C BC ####[facility] Pagchyxrmm2167 [place] [address]DrIrina Rocha MANUAL DIFF REQ NO Normal [facility] Comment on above: Performed By: #### C BC ####[facility] Byvvafzgxi8725 [place] [address]DrIrina Rocha MCH (RBC) [Entitic mass] 25.1 pg Critically low 26.7-34.0 [facility] Comment on above: Performed By: #### C BC ####[facility] Rxocjszwcj7031 [place] [address]Dr. Ricardo Rocha MCHC (RBC) [Mass/Vol] 30.8 g/dL Normal 29.9-35.2 [facility] Comment on above: Performed By: #### C BC ####[facility] Ctczjzkwbm4[address] [place] [id number]. Ricardo Rocha MCV (RBC) [Entitic vol] 81.6 fL Normal 81.0-99.0 [facility] Comment on above: Performed By: #### C BC ####[facility] Jfnktzinlf8684 [place] [id number]. Ricardo Rocha MONO # 0.6 103/ul Normal 0.3-0.8 [facility] Comment on above: Performed By: #### C BC ####[facility] Igqeshoaot30[address] [place] [address]Dr. Ricardo Aj Monocytes/100 WBC (Bld) 5.7 % Normal 1.7-12.0 [facility] Comment on above: Performed By: #### C BC ####[facility] Eanpquqwzx7741 [place] [address]Dr. Ricardo Rocha NEUT # 8.4 103/ul Critically high 1.4-6.5 [facility] Comment on above: Performed By: #### C BC ####[facility] Zexdiioygd7187 [place] [address]Dr. Ricardo Rocha Neutrophils/100 WBC (Bld) 83.8 % Critically high 43.0-75.0 [facility] Comment on above: Performed By: #### C BC ####[facility] Gxmysoznhk8275 [place] [phone]. Ricardo Rocha Platelet mean volume (Bld) [Entitic vol] 12.1 fL Normal 9.5-13.5 [facility] Comment on above: Performed By: #### C BC ####[facility] Ubwmvomjde33[address] [place] [phone]. Ricardo Aj PLT 149 103/ul Critically low 150-450 [facility] Comment on above: Performed By: #### C BC ####[facility] Dmnvpcaoph8264 [place] [address]Dr. Ricardo Rocha RBC 3.42 106/ul Critically low 4.20-5.40 [facility] Comment on above: Performed By: #### C BC ####[facility] Pzxheqmeto4759 [place] [phone]. Ricardo Rocha WBC 10.0 103/ul Normal 4.0-11.[address] [facility] Comment on above: Performed By: #### C BC ####[facility] Cpynzmrouf9908[address] [place], [place] [address]Dr. Ricardo Rocha CULTURE OTHERon 06-13-2022 CULTURE OTHER Normal [facility] Comment on above: Performed By: #### O THCX ####[facility] Wgwjrdgjhc0113[address] [place], [place] [address]Dr. Ricardo Rocha CULTURE OTHER Normal [facility] Comment on above: Performed By: #### O THCX ####[facility] Wmarigchti085[address] [place], [place] [address]Dr. Ricardo Rocha CULTURE OTHER Normal [facility] Comment on above: Performed By: #### O THCX ####[facility] Neeqaxbled0053[address] [place], [place] [address]Dr. Ricardo Rocha GI PANEL (PCR)on 06-13-2022 Adenovirus F 40/41 Not detected Normal NOT DETECTED [facility] Comment on above: Performed By: #### G IPANEL ####[facility] Nanzvtizyq5425[address] [place], [place] [address]Dr. Ricardo Rocha Astrovirus Not detected Normal NOT DETECTED [facility] Comment on above: Performed By: #### G IPANEL ####[facility] Hgmiaakoel736[address] [place], [place] [address]Dr. Ricardo Rocha C. Diff toxin A/B Not detected Normal NOT DETECTED [facility] Comment on above: Performed By: #### G IPANEL ####[facility] Csoruwbkum220[address] [place] [address]Dr. Ricardo Rocha Campylobacter Not detected Normal NOT DETECTED [facility] Comment on above: Performed By: #### G IPANEL ####[facility] Dfdislirqs1811 [place] [phone]. Nanomarcial Aj Cryptosporidium Not detected Normal NOT DETECTED The [facility] Comment on above: Performed By: #### G IPANEL ####[facility] Oewwlodrqb3838[address] [place], [place] [address]Dr. Ricardo Rocha Cyclos. Cayetanensis Not detected Normal NOT DETECTED [facility] Comment on above: Performed By: #### G IPANEL ####[facility] Ligspbnmjf246[address] [place], [place] [address]Dr. Ricardo Rocha E. Coli O157 Not Applicable Normal Not Applicable [facility] Comment on above: Performed By: #### G IPANEL ####[facility] Mvkuassefa1478[address] [place], [place] [address]Dr. Ricardo Rocha E. histolytica Not detected Normal NOT DETECTED The [facility] Comment on above: Performed By: #### G IPANEL ####[facility] Goqnbuswuk9435[address] [place], [place] [address]Dr. Ricardo Rocha EAEC Not detected Normal NOT DETECTED [facility] Comment on above: Performed By: #### G IPANEL ####[facility] Xxirikxnbs[address] [place], [place] [address]Dr. Ricardo Rocha EIEC Not detected Normal NOT DETECTED [facility] Comment on above: Performed By: #### G IPANEL ####[facility] Lxwfxfltjz6394[address] [place], [place] [address]Dr. Ricardo Rocha EPEC Not detected Normal NOT DETECTED [facility] Comment on above: Performed By: #### G IPANEL ####[facility] Pmcafcawyc35[address] [place], [place] [address]Dr. Ricardo Rocha ETEC Not detected Normal NOT DETECTED [facility] Comment on above: Performed By: #### G IPANEL ####[facility] Sxkvsjuxya5064[address] [place], [place] [address]Dr. Ricardo Rocha G. Lamblia Not detected Normal NOT DETECTED [facility] Comment on above: Performed By: #### G IPANEL ####[facility] Swjhdyjcek2249[address] [place], [place] [address]Dr. Ricardo CASASANEL CONTROLS PASSED Normal [facility] Comment on above: Performed By: #### G IPANEL ####[facility] Sqcjxvuwjp0854 [place] [address]Dr. Ricardo CASASNL MONIQUE HEADER GI PANEL BACTERIA Normal [facility] Comment on above: Performed By: #### G IPANEL ####[facility] Jvhayrqdly8107 [place] [phone]. Ricardo MARTINEZHD ECOLI GI PANEL DIARRHEAGEN IC E.COLI / SHIGELLA Normal [facility] Comment on above: Performed By: #### G IPANEL ####[facility] Cluiwmgtvf0309[address] [place], [place] [address]Dr. Ricardo MARTINEZHD INFO SEE BELOW Normal [facility] Comment on above: Result Comment: EAEC - Enteroaggregative E. Coli EPEC- Enteropathogenic E. Coli ETEC- Enterotoxigenic E. Coli lt/st STEC- Shigella-like toxin-producing E. Coli stx1/stx2 EIEC- Shigella/Enteroinvasive E. Coli Performed By: #### G IPANEL ####[facility] Hhxtcvqktg[address] [place], [place] [address]Dr. Ricardo Rocha GIPNLHD PARASITES GI PANEL PARASITES Normal [facility] Comment on above: Performed By: #### G IPANEL ####[facility] Cxmutgvbji3336[address] [place], [place] [address]Dr. Ricardo MARTINEZHD VIRUS GI PANEL VIRUSES Normal [facility] Comment on above: Performed By: #### G IPANEL ####[facility] Mtdedodftj0235 [place] [address]Dr. Ricardo Rocha Norovirus GI/GII Not detected Normal NOT DETECTED [facility] Comment on above: Performed By: #### G IPANEL ####[facility] Wgzxraegbm4009[address] [place], [place] [address]Dr. Ricardo Rocha P. Shigelloides Not detected Normal NOT DETECTED The [facility] Comment on above: Performed By: #### G IPANEL ####[facility] Pjdhijulxv8458[address] [place], [place] [address]Dr. Ricardo Rocha Rotavirus A Not detected Normal NOT DETECTED [facility] Comment on above: Performed By: #### G IPANEL ####[facility] Skwlarwhcy750[address] [place], [place] [address]Dr. Ricardo Rocha Salmonella Not detected Normal NOT DETECTED [facility] Comment on above: Performed By: #### G IPANEL ####[facility] Iqnjcxkzjt301[address] [place], [place] [address]Dr. Ricardo Rocha Sapovirus Not detected Normal NOT DETECTED [facility] Comment on above: Performed By: #### G IPANEL ####[facility] Ldcgkdlpcx1266[address] [place], [place] [address]Dr. Ricardo Rocha STEC Not detected Normal NOT DETECTED [facility] Comment on above: Performed By: #### G IPANEL ####[facility] Snmkzcaqlk7162[address] [place], [place] [address]Dr. Ricardo Rocha Vibrio Not detected Normal NOT DETECTED [facility] Comment on above: Performed By: #### G IPANEL ####[facility] Takmgtcexo7077[address] [place], [place] [address]Dr. Ricardo Rocha Vibrio Cholera Not detected Normal NOT DETECTED The [facility] Comment on above: Performed By: #### G IPANEL ####[facility] Puxcmulqpv3698[address] [place], [place] [address]Dr. Ricardo Rocha Y. Enterocolitica Not detected Normal NOT DETECTED [facility] Comment on above: Performed By: #### G IPANEL ####[facility] Bwkxaqpcbd5812[address] [place], [place] [address]Dr. Ricardo Rocha IRON AND TIBCon 06-13-2022 % SATURATION 19.9 % Normal [facility] Comment on above: Performed By: #### F ETIBC, B12FOL ####[facility] Hhzwzflciq8816[address] [place], [place] [address]Dr. Ricardo Rocha Iron [Mass/Vol] 75.0 ug/dL Normal 50.0-170.0 [facility] Comment on above: Performed By: #### F ETIBC, B12FOL ####[facility] Pwffgflnyf97[address] [place] [address]Dr. Ricardo Rocha TIBC DIRECT 376.0 ug/dL Normal 250.0-450.0 [facility] Comment on above: Performed By: #### F ETIBC, B12FOL ####[facility] Chrbwudzmn2141 [place] [address]Dr. Ricardo Aj POINT OF CARE GLUCOSEon 05-22 Glucose [Mass/Vol] 238 mg/dL Critically high 74-106 [facility] Comment on above: Performed By: #### P OCGLUC ####[facility] Hqkyywrxsf7722 [place] [address]Dr. Ricardo Rocha Glucose [Mass/Vol] 146 mg/dL Critically high -106 [facility] Comment on above: Performed By: #### P OCGLUC ####[facility] Qfbnaaeoow7539 [place] [address]Dr. Ricardo Aj Glucose [Mass/Vol] 143 mg/dL Critically high -106 [facility] Comment on above: Performed By: #### P OCGLUC ####[facility] Lsygncbizo1135 [place] [address]Dr. Ricardo Rocha Glucose [Mass/Vol] 205 mg/dL Critically high -106 [facility] Comment on above: Performed By: #### P OCGLUC ####[facility] Ujrftztqxp9707 [place] [address]Dr. Ricardo Rocha Glucose [Mass/Vol] 227 mg/dL Critically high -106 [facility] Comment on above: Performed By: #### P OCGLUC ####[facility] Dklgafmpdx5194[address] [place], [place] [address]Dr. Ricardo Rocha PROF 14(COMP METB)on 022 Albumin [Mass/Vol] 1.5 g/dL Critically low 3.4-5.0 [facility] Comment on above: Performed By: #### C MP ####[facility] Emozegfjup3947[address] [place], [place] [address]Dr. Ricardo Aj Albumin/Globulin [Mass ratio] 0.3 {ratio} Normal [facility] Comment on above: Performed By: #### C MP ####[facility] Vzltwdccsk8085 [place] [address]Dr. Ricardo Rocha ALP [Catalytic activity/Vol] 136 U/L Critically high 46-[address] [facility] Comment on above: Performed By: #### C MP ####[facility] Qodyaljtzo6448 [place] [address]Dr. Ricardo Rocha ALT [Catalytic activity/Vol] 18 U/L Normal 14-59 [facility] Comment on above: Performed By: #### C MP ####[facility] Urshtxgnht5777 [place] [address]Dr. Ricardo Rocha Anion gap [Moles/Vol] 10.2 mmol/L Normal [facility] Comment on above: Performed By: #### C MP ####[facility] Cvkvzfommf7[address] [place], [place] [address]Dr. Ricardo Rocha AST [Catalytic activity/Vol] 37 U/L Normal 15-[address] [facility] Comment on above: Performed By: #### C MP ####[facility] Vvxtsamfne7048[address] [place], [place] [address]Dr. Ricardo Rocha Bilirubin [Mass/Vol] 0.4 mg/dL Normal 0.2-1.[address] [facility] Comment on above: Performed By: #### C MP ####[facility] Uxjvckmexj[address] [place], [place] [address]Dr. Ricardo Rocha Calcium [Mass/Vol] 8.0 mg/dL Critically low 8.5-10.1 [facility] Comment on above: Performed By: #### C MP ####[facility] Zdmnfhirrz8559[address] [place], [place] [address]Dr. Ricardo Rocha Chloride [Moles/Vol] 110 mmol/L Critically high 98-[address] [facility] Comment on above: Performed By: #### C MP ####[facility] Yqiznzkmkp9324[address] [place], [place] [address]Dr. Ricardo Rocha CO2 [Moles/Vol] 18.2 mmol/L Critically low 21.0-32.0 [facility] Comment on above: Performed By: #### C MP ####[facility] Bgcwjibjlq0627 [place] [phone]. Ricardo Rocha Creatinine [Mass/Vol] 1.76 mg/dL Critically high 0.55-1.[address] [facility] Comment on above: Performed By: #### C MP ####[facility] Dugujndldz5439 [place] [phone]. Ricardo Rocha EGFR-AF VENEZUELAN 35 mL/min/1.73m2 Critically low >=[address] [facility] Comment on above: Performed By: #### C MP ####[facility] Kzhiuklmlg6947 [place] [phone]. Ricardo Rocha EGFR-NON AF VENEZUELAN 29 mL/min/1.73m2 Critically low >=[address] [facility] Comment on above: Performed By: #### C MP ####[facility] Bcjdpehowo2521 [place] [address]Dr. Ricardo Rocha Globulin (S) [Mass/Vol] 4.7 g/dL Normal [facility] Comment on above: Performed By: #### C MP ####[facility] Wgxjgcnwje3732 [place] [address]Dr. Ricardo Rocha Glucose [Mass/Vol] 223 mg/dL Critically high 74-106 [facility] Comment on above: Performed By: #### C MP ####[facility] Obyurfpnsh9200 [place] [phone]. Ricardo Rocha Potassium [Moles/Vol] 3.4 mmol/L Critically low 3.5-5.[address] [facility] Comment on above: Performed By: #### C MP ####[facility] Yjx[address]jwps[address] [place], [place] [id number]. Ricardo Rocha Protein [Mass/Vol] 6.2 g/dL Critically low 6.4-8.2 [facility] Comment on above: Performed By: #### C MP ####[facility] Dsburzzdwn[address] [place], [place] [id number]. Ricardo Rocha Sodium [Moles/Vol] 135 mmol/L Critically low 136-145 [facility] Comment on above: Performed By: #### C MP ####[facility] Wdipksjown2907 [place] [address]Dr. Ricardo Rocha Urea nitrogen [Mass/Vol] 33.0 mg/dL Critically high 7.0-18.0 [facility] Comment on above: Performed By: #### C MP ####[facility] Sungtdrzbd7569 [place] [address]Dr. Ricardo Rocha Urea nitrogen/Creatinine [Mass ratio] 18.8 mg/mg Normal [facility] Comment on above: Performed By: #### C MP ####[facility] Rzqhprbfxq[address] [place] [address]Dr. Ricardo Rocha VANCOMYCIN TROUGHon 06-13-20 22 VANCOMYCIN TROUGH 15.2 ug/ml Normal 5.0-20.0 [facility] Comment on above: Performed By: #### V ANCT ####[facility] Rangptfnsu75[address] [place], [place] [address]Dr. Ricardo Rocha VIT B12 AND FOLATEon 022 Cobalamin (Vitamin B12) [Mass/Vol] 874.0 pg/mL Normal 193.0-986.0 [facility] Comment on above: Performed By: #### F ETIBC, B12FOL ####[facility] Xyszbpkybh[address] [place] [address]Dr. Ricardo Rocha FOLATE 6.60 ng/mL Critically low 8.60-58.90 [facility] Comment on above: Performed By: #### F ETIBC, B12FOL ####[facility] Bgltlnuety[address] [place] [address]Dr. Ricardo Rocha XR FOOT LT MIN 3 VIEWSon XR FOOT LT MIN 3 VIEWS Normal [facility] CBC W MANUAL DIFFon 06-12-20 22 ATYPICAL LYMPH # Normal [facility] Comment on above: Performed By: #### C BCMAN ####[facility] Dpkzaxbphl[address] [place] [address]Dr. Ricardo Rocha ATYPICAL LYMPH % Normal [facility] Comment on above: Performed By: #### C BCMAN ####[facility] Ebmouosqvn33[address] [place] [address]Dr. Ricardo Rocha BAND # 1.9 103/ul Critically high 0.0-0.3 [facility] Comment on above: Performed By: #### C BCMAN ####[facility] Zlqxbxarmi065[address] [place] [address]Dr. Ricardo Rocha BAND % 17 % Critically high 0-5 [facility] Comment on above: Performed By: #### C BCRED ####[facility] Mkqfkxbebi[address] [place], [place] [address]Dr. Ricardo Rocha BASOM # 0.00 103/ul Normal 0.00-0.10 [facility] Comment on above: Performed By: #### C BCRED ####[facility] Cmaponjkqj[address] [place], [place] [address]Dr. Ricardo Rocha BASOM % 0.0 % Critically low 0.2-2.0 [facility] Comment on above: Performed By: #### C BCRED ####[facility] Hjibhxglce[address] [place], [place] [address]Dr. Ricardo Rocha BLAST # Normal [facility] Comment on above: Performed By: #### C BCRED ####[facility] Gfvrphxhbt6[address] [place], [place] [address]Dr. Ricardo Rocha BLAST % Normal [facility] Comment on above: Performed By: #### C BCRED ####[facility] Qrbzkvvpkh8188[address] [place], [place] [address]Dr. Ricardo Rocha CORRECTED WBC Normal 4.0-11.0 [facility] Comment on above: Performed By: #### C BCRED ####[facility] Fhwzmjbmos[address] [place], [place] [address]Dr. Ricardo Rocha EOS # 0.00 103/ul Normal 0.00-0.70 [facility] Comment on above: Performed By: #### C BCMAN ####[facility] Tkwwrzypby5[address] [place], [place] [address]Dr. Ricardo Rocha EOS% 0.0 % Critically low 0.9-7.0 [facility] Comment on above: Performed By: #### C BCRED ####[facility] Jthqkxzchu0813 [place], [place] [address]Fi. Ricardo Rocha HCT 28.0 % Critically low 36.0-48.0 [facility] Comment on above: Performed By: #### C DWAINE ####[facility] Osjltcxmmr9827 [place], [place] [address]Sx. Ricardo Rocha HGB 8.6 g/dl Critically low 12.0-16.0 [facility] Comment on above: Performed By: #### C DWAINE ####[facility] Wayxqqavkv9991 [place] [id number]. Ricardo Rocha HYPOCHROMASIA SLIGHT Normal [facility] Comment on above: Performed By: #### C DWAINE ####[facility] Dyxqhfprrs5283 [place] [phone]. Ricardo Rocha LYMPHM # 0.77 103/ul Critically low 1.20-3.80 [facility] Comment on above: Performed By: #### C DWAINE ####[facility] Oagdphnalm9220 [place] [phone]. Ricardo Rocha LYMPHM% 7.0 % Critically low 20.5-60.0 [facility] Comment on above: Performed By: #### C DWAINE ####[facility] Xpylxfcnsz8495 [place] [phone]. Ricardo Rocha MCH 25.1 pg Critically low 26.7-34.0 [facility] Comment on above: Performed By: #### C DWAINE ####[facility] Yaiooskxgd8407 [place] [phone]. Ricardo Rocha MCHC 30.7 g/dl Normal 29.9-35.2 [facility] Comment on above: Performed By: #### C DWAINE ####[facility] Athclocnvt06[address] [place] [phone]. Ricardo Rocha MCV 81.9 fL Normal 81.0-99.0 [facility] Comment on above: Performed By: #### C DWAINE ####[facility] Hlknzaouhb30[address] [place] [address]Dr. Ricardo Rocha METAMYELOCYTE # Normal [facility] Comment on above: Performed By: #### C BCMAN ####[facility] Uebufoovtt8930 [place] [phone]. Ricardo Rocha METAMYELOCYTE % Normal [facility] Comment on above: Performed By: #### C BCMAN ####[facility] Klqczzgbes4867 [place] [phone]. Ricardo Rocha MONOM# 0.11 103/ul Critically low 0.30-0.80 [facility] Comment on above: Performed By: #### C BCMAN ####[facility] Pyycqjntkv5025 [place] [address]Dr. Ricardo Rocha MONOM% 1.0 % Critically low 1.7-12.0 [facility] Comment on above: Performed By: #### C BCRED ####[facility] Wyzlepvbqi6246 [place] [address]Dr. Ricardo Aj MPV 12.6 fL Normal 9.5-13.[address] [facility] Comment on above: Performed By: #### C BCMAN ####[facility] Wktohoyzsi6771 [place] [address]Dr. Ricardo Rocha MYELOCYTE # Normal [facility] Comment on above: Performed By: #### C BCRED ####[facility] Raaewtrott[address] [place] [phone]. Ricardo Rocha MYELOCYTE % Normal [facility] Comment on above: Performed By: #### C BCMAN ####[facility] Ahpkaqoddl6473 [place] [phone]. Ricardo Rocha NRBC Normal [facility] Comment on above: Performed By: #### C BCMAN ####[facility] Supozrnnbf5665 [place] [phone]. Ricardo Rocha PLT 140 103/ul Critically low 150-450 [facility] Comment on above: Performed By: #### C BCRED ####[facility] Ijmtesrxrw4386 [place] [phone]. Ricardo Rocha RBC 3.42 106/ul Critically low 4.20-5.40 [facility] Comment on above: Performed By: #### C DWAINE ####[facility] Knioxrhxad7442 [place] [phone]. Ricardo Rocha RDW 13.7 % Normal 11.0-15.[address] [facility] Comment on above: Performed By: #### C DWAINE ####[facility] Bdylptyzry4296 [place] [phone]. Ricardo Rocha SEG # 8.25 103/ul Critically high 1.40-6.50 [facility] Comment on above: Performed By: #### C DWAINE ####[facility] Lkxyyuwgjp1099 [place] [address]Dr. Ricardo Rocha SEG % 75.0 % Normal 43.0-75.[address] [facility] Comment on above: Performed By: #### C DWAINE ####[facility] Fogcmgyjbj1201 [place] [address]Dr. Ricardo Rocha WBC 11.0 103/ul Normal 4.0-11.[address] [facility] Comment on above: Performed By: #### C DWAINE ####[facility] Slgfqfuyas1953[address] [place], [place] [address]Dr. Ricardo Rocha POINT OF CARE GLUCOSEon 102 Glucose [Mass/Vol] 200 mg/dL Critically high 74-106 [facility] Comment on above: Performed By: #### P OCGLUC ####[facility] Gotrvdobxr9800 [place] [address]Dr. Ricardo Rocha Glucose [Mass/Vol] 165 mg/dL Critically high 74-106 [facility] Comment on above: Performed By: #### P OCGLUC ####[facility] Ifsfrkoiqn5712 [place] [address]Dr. Ricardo Rocha Glucose [Mass/Vol] 152 mg/dL Critically high 74-106 [facility] Comment on above: Performed By: #### P OCGLUC ####[facility] Zqitucmcuo8165[address] [place], [place] [address]Dr. Ricardo Aj Glucose [Mass/Vol] 154 mg/dL Critically high 74-106 [facility] Comment on above: Performed By: #### P OCGLUC ####[facility] Nknevxyocw8814[address] [place], [place] [address]Dr. Ricardo Rocha PROF 14(COMP METB)on 022 Albumin [Mass/Vol] 1.9 g/dL Critically low 3.4-5.0 e [facility] Comment on above: Performed By: #### C MP ####[facility] Jhqytwoxal558[address] [place], [place] [address]Dr. Ricardo Rocha Albumin/Globulin [Mass ratio] 0.4 {ratio} Normal [facility] Comment on above: Performed By: #### C MP ####[facility] Zfxqixtxmc0034[address] [place], [place] [address]Dr. Ricardo Rocha ALP [Catalytic activity/Vol] 68 U/L Normal 46-[address] [facility] Comment on above: Performed By: #### C MP ####[facility] Rbbwhnamer364[address] [place], [place] [address]Dr. Ricardo Rocha ALT [Catalytic activity/Vol] 16 U/L Normal 14-[address] [facility] Comment on above: Performed By: #### C MP ####[facility] Shzbufihwl8538[address] [place], [place] [address]Dr. Ricardo Rocha Anion gap [Moles/Vol] 15.1 mmol/L Normal [facility] Comment on above: Performed By: #### C MP ####[facility] Icgfahrzse0117[address] [place], [place] [address]Dr. Ricardo Rocha AST [Catalytic activity/Vol] 26 U/L Normal 15-37 [facility] Comment on above: Performed By: #### C MP ####[facility] Trzmdxxeyb4132[address] [place], [place] [address]Dr. Ricardo Rocha Bilirubin [Mass/Vol] 0.3 mg/dL Normal 0.2-1.[address] [facility] Comment on above: Performed By: #### C MP ####[facility] Ujtqnduias3785[address] [place], [place] [address]Dr. Ricardo Rocha Calcium [Mass/Vol] 8.0 mg/dL Critically low 8.5-10.1 [facility] Comment on above: Performed By: #### C MP ####[facility] Enmmsbtntq762[address] [place], [place] [address]Dr. Ricardo Rocha Chloride [Moles/Vol] 110 mmol/L Critically high 98-[address] [facility] Comment on above: Performed By: #### C MP ####[facility] Pukwcukqnt039[address] [place], [place] [address]Dr. Ricardo Rocha CO2 [Moles/Vol] 18.0 mmol/L Critically low 21.0-32.[address] [facility] Comment on above: Performed By: #### C MP ####[facility] Nluqdjzzrv7316[address] [place], [place] [address]Dr. Ricardo Rocha Creatinine [Mass/Vol] 1.97 mg/dL Critically high 0.55-1.[address] [facility] Comment on above: Performed By: #### C MP ####[facility] Fticgqlvbe3374[address] [place], [place] [address]Dr. Ricardo Rocha EGFR-AF VENEZUELAN 31 mL/min/1.73m2 Critically low >=[address] [facility] Comment on above: Performed By: #### C MP ####[facility] Cgufyaldci6826[address] [place], [place] [address]Dr. Ricardo Rocha EGFR-NON AF VENEZUELAN 26 mL/min/1.73m2 Critically low >=[address] [facility] Comment on above: Performed By: #### C MP ####[facility] Qdhnazpgiu2882[address] [place], [place] [address]Dr. Ricardo Rocha Globulin (S) [Mass/Vol] 5.2 g/dL Normal [facility] Comment on above: Performed By: #### C MP ####[facility] Niprgkcoda4[address] [place], [place] [address]Dr. Ricardo Rocha Glucose [Mass/Vol] 146 mg/dL Critically high 74-106 [facility] Comment on above: Performed By: #### C MP ####[facility] Xpanlkjuqw020[address] [place], [place] [address]Dr. Ricardo Rocha Potassium [Moles/Vol] 3.1 mmol/L Critically low 3.5-5.1 [facility] Comment on above: Performed By: #### C MP ####[facility] Zpyzfkrjmr7676[address] [place], [place] [address]Dr. Ricardo Rocha Protein [Mass/Vol] 7.1 g/dL Normal 6.4-8.2 [facility] Comment on above: Performed By: #### C MP ####[facility] Ybafkskvib3249[address] [place], [place] [address]Dr. Ricardo Rocha Sodium [Moles/Vol] 140 mmol/L Normal 136-145 [facility] Comment on above: Performed By: #### C MP ####[facility] Uqidemcwzk8645[address] [place], [place] [address]Dr. Ricardo Aj Urea nitrogen [Mass/Vol] 30.0 mg/dL Critically high 7.0-18.[address] [facility] Comment on above: Performed By: #### C MP ####[facility] Mpmmfmxdks6[address] [place], [place] [address]Dr. Ricardo Rocha Urea nitrogen/Creatinine [Mass ratio] 15.2 mg/mg Normal [facility] Comment on above: Performed By: #### C MP ####[facility] Tdhzyutqtv1458[address] [place], [place] [address]Dr. Ricardo Aj CBC W MANUAL DIFFon 06-11-20 22 ATYPICAL LYMPH # Normal [facility] Comment on above: Performed By: #### C BCMAN ####[facility] Ejefpqqgzx4999[address] [place], [place] [address]Dr. Ricardo Rocha ATYPICAL LYMPH % Normal [facility] Comment on above: Performed By: #### C BCMAN ####[facility] Xvvsnmlrgx5168[address] [place], [place] [address]Dr. Ricardo Rocha BAND # 1.1 103/ul Critically high 0.0-0.3 [facility] Comment on above: Performed By: #### C BCMAN ####[facility] Icnskxecnn427[address] [place], [place] [address]Dr. Ricardo Rocha BAND % 12 % Critically high 0-5 [facility] Comment on above: Performed By: #### C DWAINE ####[facility] Tzageppeyc5424 [place] [id number]. Ricardo Rocha BASOM # 0.00 103/ul Normal 0.00-0.10 [facility] Comment on above: Performed By: #### C DWAINE ####[facility] Xuhjmfowfj9513 [place] [id number]. Ricardo Rocha BASOM % 0.0 % Critically low 0.2-2.0 [facility] Comment on above: Performed By: #### C DWAINE ####[facility] Czldcirbsc4864 [place] [address]Dr. Ricardo Rocha BLAST # Normal [facility] Comment on above: Performed By: #### C DWAINE ####[facility] Vauthelpjb4016 [place] [address]Dr. Ricardo Rocha BLAST % Normal [facility] Comment on above: Performed By: #### C DWAINE ####[facility] Kbymazsbja5[address] [place], [place] [address]Dr. Ricardo Rocha CORRECTED WBC Normal 4.0-11.0 [facility] Comment on above: Performed By: #### C DWAINE ####[facility] Hdggvluleh1469[address] [place], [place] [address]Dr. Ricardo Rocha EOS # 0.00 103/ul Normal 0.00-0.70 [facility] Comment on above: Performed By: #### C DWAINE ####[facility] Nivoiyudsa9216 [place] [address]Dr. Ricardo Rocha EOS% 0.0 % Critically low 0.9-7.0 [facility] Comment on above: Performed By: #### C DWAINE ####[facility] Zqbsmxnbrq9098[address] [place], [place] [address]Dr. Ricardo Rocha HCT 32.6 % Critically low 36.0-48.0 [facility] Comment on above: Performed By: #### C DWAINE ####[facility] Anzidlwtlf4457[address] [place], [place] [address]Dr. Ricardo Rocha HGB 10.5 g/dl Critically low 12.0-16.0 [facility] Comment on above: Performed By: #### C DWAINE ####[facility] Vrjnuwjrst8270 [place] [address]Dr. Ricardo Rocha LYMPHM # 0.46 103/ul Critically low 1.20-3.80 [facility] Comment on above: Performed By: #### C DWAINE ####[facility] Njwklrrgqt0155 [place] [address]Dr. Ricardo Rocha LYMPHM% 5.0 % Critically low 20.5-60.0 [facility] Comment on above: Performed By: #### C DWAINE ####[facility] Ustbceazxg1935 [place] [address]Dr. Ricardo Rocha MCH 25.3 pg Critically low 26.7-34.0 [facility] Comment on above: Performed By: #### Esteban ISIDRO ####[facility] Xxzsxnisbi7610 [place] [address]Dr. Ricardo Rocha MCHC 32.2 g/dl Normal 29.9-35.[address] [facility] Comment on above: Performed By: #### C DWAINE ####[facility] Gyglaogyzz3494 [place] [address]Dr. Ricardo Rocha MCV 78.6 fL Critically low 81.0-99.0 [facility] Comment on above: Performed By: #### Esteban ISIDRO ####[facility] Oitmysptjb6457 [place] [address]Dr. Ricardo Rocha METAMYELOCYTE # Normal [facility] Comment on above: Performed By: #### C DWAINE ####[facility] Pmjrscohkt[address] [place] [phone]. Ricardo Rocha METAMYELOCYTE % Normal [facility] Comment on above: Performed By: #### C DWAINE ####[facility] Iuizvvwmbn4737 [place] [phone]. Ricardo Rocha MONOM# 0.28 103/ul Critically low 0.30-0.80 [facility] Comment on above: Performed By: #### C DWAINE ####[facility] Nxlbpzhkic6860 [place], [place] [address]If. Ricardo Rocha MONOM% 3.0 % Normal 1.7-12.[address] [facility] Comment on above: Performed By: #### C DWAINE ####[facility] Xouyzwqous6498 [place], [place] [address]Yi. Ricardo Rocha MPV 11.4 fL Normal 9.5-13.[address] [facility] Comment on above: Performed By: #### C BCRED ####[facility] Iixiodjmom0111 [place] [phone]. Ricardo Rocha MYELOCYTE # Normal [facility] Comment on above: Performed By: #### C DWAINE ####[facility] Ijnqbtpbjr9252 [place] [phone]. Ricardo Rocha MYELOCYTE % Normal [facility] Comment on above: Performed By: #### C DWAINE ####[facility] Uadaddewpi9297 [place] [phone]. Ricardo Rocha NRBC Normal [facility] Comment on above: Performed By: #### C DWAINE ####[facility] Qzekkcmgvs0347 [place] [phone]. Ricardo Rocha PLT 154 103/ul Normal 150-[address] [facility] Comment on above: Performed By: #### C DWAINE ####[facility] Xwhccanyvv1345 [place] [phone]. Ricardo Rocha RBC 4.15 106/ul Critically low 4.20-5.40 [facility] Comment on above: Performed By: #### C DWAINE ####[facility] Dbyyckxxxq8049 [place] [phone]. Ricardo Rocha RDW 12.8 % Normal 11.0-15.0 [facility] Comment on above: Performed By: #### C DWAINE ####[facility] Wvqrwnwifc6949 [place] [phone]. Nanomarcial Rocha SEG # 7.36 103/ul Critically high 1.40-6.50 [facility] Comment on above: Performed By: #### C BCMAN ####[facility] Nkvgwoofzd0966 [place] [phone]. Ricardo Rocha SEG % 80.0 % Critically high 43.0-75.0 [facility] Comment on above: Performed By: #### C BCMAN ####[facility] Ikyxdjkatb5083 [place] [phone]. Ricardo Rocha WBC 9.2 103/ul Normal 4.0-11.[address] [facility] Comment on above: Performed By: #### C BCMAN ####[facility] Pvywuypftt3733 [place] [phone]. Ricardo Rocha CT HEAD WO CONon 06-11-2022 CT HEAD WO CON Normal [facility] CULTURE ANAEROBICon 06-11-20 CULTURE ANAEROBIC Culture Observations : NO GROWTH OF ANAEROBES AT [address] [facility] Comment on above: Performed By: #### A NACX ####[facility] Nbiixpvlkq[address] [place], [place] [address]Dr. Ricardo Rocha CULTURE ANAEROBIC Culture Observations : NO GROWTH OF ANAEROBES AT [address] [facility] Comment on above: Performed By: #### A NACX ####[facility] Fbvyjnlgdv4[address] [place], [place] [address]Dr. Ricardo Rocha CULTURE BLOODon 06-11-2022 Microscopic examination of blood, culture Culture Observations: Aerobic bottle positive only. Culture Observations: No growth at 5 days in anaerobic bottle Culture Observations: See for Susceptibility testing. Isolate 1 Staphylococcus aureus Growth of Normal [facility] Comment on above: Performed By: #### B LDCX2 ####[facility] Gwgzvkvftv[address] [place], [place] [address]Dr. Ricardo Rocha CULTURE URINEon 06-11-2022 CULTURE URINE Culture Observations : LIGHT GROWTH OF MIXED GENITAL SHAHLA. NO POTENTIAL PATHOGENS SEEN. Normal [facility] Comment on above: Performed By: #### U RCX ####[facility] Gxhytwqtoo69[address] [place], [place] [address]Dr. Ricardo Rocha Covid-19 PCR (CVDTBH)on 05-22 SARS-CoV-2 (COVID-19) RNA ADRIEL+probe Ql (Unsp spec) Not detected Normal NOT DETECTED [facility] Comment on above: Result Comment: When diagnostic [...] for this test is supported by the Blood Bank Technician of Health and Human Service's declaration that [...] longer be used). Performed By: #### C VDTB ####[facility] Unieklurhw260[address] [place], [place] [address]Dr. Ricardo Rocha ER URINE PROFILEon 2 Bilirubin Ql (U) Negative Normal NEGATIVE [facility] Comment on above: Performed By: #### SHAYNA ELENA ####[facility] Nhqvxljzpl23[address] [place], [place] [address]Dr. Ricardo Rocha Clarity (U) CLEAR Normal CLEAR [facility] Comment on above: Performed By: #### SHAYNA ELENA ####[facility] Fwfovqbtva8677[address] [place], [place] [address]Dr. Ricardo Rocha Color (U) LT. YELLOW Normal YELLOW [facility] Comment on above: Performed By: #### SHAYNA ELENA ####[facility] Oddqhfcaiq37[address] [place], [place] [address]Dr. Ricardo Rocha ERUAHD A micrscopic examination will be performed if indicated. Normal [facility] Comment on above: Performed By: #### SHAYNA ELENA ####[facility] Kvdflgqgtp99[address] [place], [place] [address]Dr. Ricardo Rocha Glucose Ql (U) >1000 Abnormal NEGATIVE [facility] Comment on above: Performed By: #### JOSLYN ELENARO ####[facility] Kacnswhpcu[address] [place] [address]Dr. Ricardo Rocha Hemoglobin Ql (U) LARGE Abnormal NEGATIVE [facility] Comment on above: Performed By: #### LOLY ELENAICRO ####[facility] [address]uv[address]acgqsy[address] [place] [address]Dr. Ricardo Rocha Ketones Ql (U) 15 mg/dl Abnormal NEGATIVE [facility] Comment on above: Performed By: #### JOSLYN ELENARO ####[facility] Lqsnnzbyxt9[address] [place], [place] [address]Dr. Ricardo Rocha LEUKOCYTES Negative Normal NEGATIVE [facility] Comment on above: Performed By: #### JOSLYN ELENARO ####[facility] Swlyylvbth4[address] [place] [address]Dr. Ricardo Rocha Nitrite Ql (U) Negative Normal NEGATIVE [facility] Comment on above: Performed By: #### JOSLYN ELENARO ####[facility] Eoalqoogzb8688 [place] [address]Dr. Ricardo Rocha pH (U) 6.0 [pH] Normal 5-9 [facility] Comment on above: Performed By: #### JOSLYN ELENARO ####[facility] Ozousebnns7609 [place] [address]Dr. Ricardo Rocha Protein (U) [Mass/Vol] 100 mg/dL Abnormal NEGATIVE/ TRACE [facility] Comment on above: Performed By: #### JOSLYN ELENARO ####[facility] Jiinxkxwew[address] [place] [address]Dr. Ricardo Rocha SPEC GRAVITY 1.020 Normal 1.005-<=1.02 5 [facility] Comment on above: Performed By: #### LOLY ELENAICRO ####[facility] Zyiztxeffs65[address] [place] [address]Dr. Ricardo Rocha UR MICRO IND INDICATED Normal [facility] Comment on above: Performed By: #### JOSLYN ELENARO ####[facility] Chwsjrfafg6152 [place] [address]Dr. Ricardo Rocha Urobilinogen Qn (U) 0.2 {Madeleine'U}/dL Normal 0.2 - 1. 0 [facility] Comment on above: Performed By: #### JOSLYN ELENARO ####[facility] Ujuqrescku45[address] [place], [place] [address]Dr. Ricardo Rocha GRAM STAINon 06-11-2022 DIPHTHEROIDS Normal [facility] Comment on above: Performed By: #### G STAIN ####[facility] Kzhsdougsv214[address] [place], [place] [address]Dr. Ricardo Rocha EPITHELIALS Normal [facility] Comment on above: Performed By: #### G STAIN ####[facility] Ecrtrokpkn74[address] [place], [place] [address]Dr. Ricardo Rocha FUNGAL ELEMENTS Normal [facility] Comment on above: Performed By: #### G STAIN ####[facility] Eytmsgptun0074[address] [place], [place] [address]Dr. Ricardo Rocha GRAM NEG BACILLI Normal [facility] Comment on above: Performed By: #### G STAIN ####[facility] Mlbshofvug[address] [place], [place] [address]Dr. Ricardo Rocha GRAM NEG DIPPLOCOCCI Normal [facility] Comment on above: Performed By: #### G STAIN ####[facility] Yanhrrefge1613[address] [place], [place] [address]Dr. Ricardo Rocha GRAM POS BACILLI Normal [facility] Comment on above: Performed By: #### G STAIN ####[facility] Pzlnxxsmpr8488[address] [place], [place] [address]Dr. Ricardo Rocha GRAM POSITIVE COCCI MANY Normal The [facility] Comment on above: Performed By: #### G STAIN ####[facility] Nfvveytwrw2883[address] [place], [place] [address]Dr. Ricardo Rocha GRAM STAIN SOURCE Left great toe tissu e after washout-clean Normal [facility] Comment on above: Performed By: #### G STAIN ####[facility] Nkvjceneic1486 [place] [id number]. Ricardo Rocha GS_DIPTH Normal [facility] Comment on above: Performed By: #### G STAIN ####[facility] Jndmjiviyj1055 [place] [address]Dr. Ricardo Rocha WBC RARE Normal [facility] Comment on above: Performed By: #### G STAIN ####[facility] Jautlgichj1713 [place] [address]Dr. Ricardo Rocha DIPHTHEROIDS Normal [facility] Comment on above: Performed By: #### G STAIN ####[facility] Occroerjhx0656 [place] [address]Dr. Ricardo Rocha EPITHELIALS Normal [facility] Comment on above: Performed By: #### G STAIN ####[facility] Wtcojolzvh25[address] [place], [place] [address]Dr. Ricardo Rocha FUNGAL ELEMENTS Normal [facility] Comment on above: Performed By: #### G STAIN ####[facility] Cpejhrehos6822[address] [place], [place] [address]Dr. Ricardo Rocha GRAM NEG BACILLI Normal [facility] Comment on above: Performed By: #### G STAIN ####[facility] Sopzvsvbgs76[address] [place], [place] [address]Dr. Ricardo Rocha GRAM NEG DIPPLOCOCCI Normal [facility] Comment on above: Performed By: #### G STAIN ####[facility] Aymcnmiwxl2801 [place] [address]Dr. Ricardo Rocha GRAM POS BACILLI Normal [facility] Comment on above: Performed By: #### G STAIN ####[facility] Ibheaokhzo2717 [place] [address]Dr. Ricardo Rocha GRAM POSITIVE COCCI RARE Normal The [facility] Comment on above: Performed By: #### G STAIN ####[facility] Kzpilvbrpi8545 [place] [address]Dr. Ricardo Rocha GRAM STAIN SOURCE Left great toe Normal [facility] Comment on above: Performed By: #### G STAIN ####[facility] Npgxxfoctt6484 [place] [address]Dr. Ricardo Rocha GS_DIPTH Normal [facility] Comment on above: Performed By: #### G STAIN ####[facility] Xqpmhezxuj5943 [place] [address]Dr. Ricardo Rocha WBC RARE Normal [facility] Comment on above: Performed By: #### G STAIN ####[facility] Ghuytvzfdy7682 [place] [address]Dr. Ricardo Rocha DIPHTHEROIDS Normal [facility] Comment on above: Performed By: #### G STAIN ####[facility] Qsahummypa9083 [place] [address]Dr. Ricardo Rocha EPITHELIALS Normal [facility] Comment on above: Performed By: #### G STAIN ####[facility] Jovhoyujza3762 [place] [address]Dr. Ricardo Rocha FUNGAL ELEMENTS Normal [facility] Comment on above: Performed By: #### G STAIN ####[facility] Hlkbztcikg6733 [place] [address]Dr. Ricardo Rocha GRAM NEG BACILLI Normal [facility] Comment on above: Performed By: #### G STAIN ####[facility] Fngfycvhzq0533[address] [place], [place] [address]Dr. Ricardo Rocha GRAM NEG DIPPLOCOCCI Normal [facility] Comment on above: Performed By: #### G STAIN ####[facility] Kyirxovkla9488 [place] [address]Dr. Ricardo Rocha GRAM POS BACILLI Normal [facility] Comment on above: Performed By: #### G STAIN ####[facility] Yuyymzwxih6782 [place] [address]Dr. Ricardo Rocha GRAM POSITIVE COCCI FEW Normal The [facility] Comment on above: Performed By: #### G STAIN ####[facility] Yqwhzjnism4230 [place] [address]Dr. Ricardo Rocha GRAM STAIN SOURCE Left great toe abscess Normal [facility] Comment on above: Performed By: #### G STAIN ####[facility] Azzvsohxzd1767 [place] [address]Dr. Ricardo Rocha GS_DIPTH Normal [facility] Comment on above: Performed By: #### G STAIN ####[facility] Xnmrnflfcg8649 [place] [address]Dr. Ricardo Rocha WBC FEW Normal [facility] Comment on above: Performed By: #### G STAIN ####[facility] Egeoqgbjso0591 [place] [address]Dr. Ricardo Rocha LACTATE/LACTIC ACIDon 2021 Lactate [Moles/Vol] 2.2 mmol/L Critically high 0.4-1.[address] [facility] Comment on above: Performed By: #### L ACT ####[facility] Bhstlxrusw7426[address] [place], [place] [address]Dr. Ricardo Rocha POINT OF CARE GLUCOSEon 05-22 Glucose [Mass/Vol] 133 mg/dL Critically high 74-106 [facility] Comment on above: Performed By: #### P OCGLUC ####[facility] Joipvrjsri47101[address] [place], [place] [address]Dr. Ricardo Rocha Glucose [Mass/Vol] 215 mg/dL Critically high -106 [facility] Comment on above: Performed By: #### P OCGLUC ####[facility] Mzrgzzfkkp2016[address] [place], [place] [address]Dr. Ricardo Rocha Glucose [Mass/Vol] 207 mg/dL Critically high -106 [facility] Comment on above: Performed By: #### P OCGLUC ####[facility] Jnjoswgaiy926[address] [place], [place] [address]Dr. Ricardo Rocha Glucose [Mass/Vol] 314 mg/dL Critically high -106 [facility] Comment on above: Performed By: #### P OCGLUC ####[facility] Nuovraourw710218 [address] [place], [place] [address]Dr. Ricardo Rocha Glucose [Mass/Vol] 496 mg/dL Critically high -106 [facility] Comment on above: Performed By: #### P OCGLUC ####[facility] Fhdqpoixgl1156[address] [place], [place] [address]Dr. Ricardo Rocha Glucose [Mass/Vol] 561 mg/dL Critically high 74-106 [facility] Comment on above: Result Comment: Prev iously Confirmed Performed By: #### P OCGLUC ####[facility] Dqqnhuljmz0215[address] [place], [place] [address]Dr. Ricardo Rocha PROF 14(COMP METB)on 022 Albumin [Mass/Vol] 2.4 g/dL Critically low 3.4-5.0 Th e [facility] Comment on above: Performed By: #### C MP ####[facility] Jrwbnjtilb425218 [address] [place], [place] [address]Dr. Ricardo Rocha Albumin/Globulin [Mass ratio] 0.4 {ratio} Normal [facility] Comment on above: Performed By: #### C MP ####[facility] Aznnkwajvp221218 [address] [place], [place] [address]Dr. Ricardo Rocha ALP [Catalytic activity/Vol] 82 U/L Normal 46-[address] [facility] Comment on above: Performed By: #### C MP ####[facility] Kjvghmqvut4154[address] [place], [place] [address]Dr. Ricardo Rocha ALT [Catalytic activity/Vol] 12 U/L Critically low 14-[address] [facility] Comment on above: Performed By: #### C MP ####[facility] Aiavlipzkg1462[address] [place], [place] [address]Dr. Ricardo Rocha Anion gap [Moles/Vol] 15.1 mmol/L Normal [facility] Comment on above: Performed By: #### C MP ####[facility] Csqfzhqeam7934[address] [place], [place] [address]Dr. Ricardo Rocha AST [Catalytic activity/Vol] 14 U/L Critically low 15-[address] [facility] Comment on above: Performed By: #### C MP ####[facility] Waghkspbso4218[address] [place], [place] [address]Dr. Ricardo Rocha Bilirubin [Mass/Vol] 0.4 mg/dL Normal 0.2-1.[address] [facility] Comment on above: Performed By: #### C MP ####[facility] Woighfaggr4927[address] [place], [place] [address]Dr. Ricardo Rocha Calcium [Mass/Vol] 8.8 mg/dL Normal 8.5-10.1 [facility] Comment on above: Performed By: #### C MP ####[facility] Aopnynuijo1441 [place] [address]Dr. Ricardo Aj Chloride [Moles/Vol] 105 mmol/L Normal 98-[address] [facility] Comment on above: Performed By: #### C MP ####[facility] Cfppayzirv5367[address] [place], [place] [address]Dr. Ricardo Aj CO2 [Moles/Vol] 21.2 mmol/L Normal 21.0-32.0 [facility] Comment on above: Performed By: #### C MP ####[facility] Abidxqftyn999518 [address] [place], [place] [address]Dr. Ricardo Rocha Creatinine [Mass/Vol] 2.03 mg/dL Critically high 0.55-1.[address] [facility] Comment on above: Performed By: #### C MP ####[facility] Mlytyyobjn0622[address] [place], [place] [address]Dr. Ricardo Aj EGFR-AF VENEZUELAN 30 mL/min/1.73m2 Critically low >=[address] [facility] Comment on above: Performed By: #### C MP ####[facility] Zxjszqdxpm0864[address] [place], [place] [address]Dr. Nanomarcial Aj EGFR-NON AF VENEZUELAN 25 mL/min/1.73m2 Critically low >=[address] [facility] Comment on above: Performed By: #### C MP ####[facility] Rpeglpljlf3775[address] [place], [place] [address]Dr. Ricardo Aj Globulin (S) [Mass/Vol] 5.7 g/dL Normal [facility] Comment on above: Performed By: #### C MP ####[facility] Bqloknjoud015[address] [place], [place] [address]Dr. Ricardo Rocha Glucose [Mass/Vol] 309 mg/dL Critically high 74-106 [facility] Comment on above: Performed By: #### C MP ####[facility] Oeuxdutjny9417[address] [place], [place] [address]Dr. Ricardo Rocha Potassium [Moles/Vol] 3.3 mmol/L Critically low 3.5-5.1 [facility] Comment on above: Performed By: #### C MP ####[facility] Avebpnedyp3002 [place] [address]Dr. Ricardo Rocha Protein [Mass/Vol] 8.1 g/dL Normal 6.4-8.2 [facility] Comment on above: Performed By: #### C MP ####[facility] Chedxhrzsh4926 [place] [address]Dr. Ricardo Rocha Sodium [Moles/Vol] 138 mmol/L Normal 136-145 [facility] Comment on above: Performed By: #### C MP ####[facility] Shnynajzss6769[address] [place], [place] [address]Dr. Ricardo Rocha Urea nitrogen [Mass/Vol] 37.0 mg/dL Critically high 7.0-18.[address] [facility] Comment on above: Performed By: #### C MP ####[facility] Fffwmcgloi1577[address] [place], [place] [address]Dr. Ricardo Rocha Urea nitrogen/Creatinine [Mass ratio] 18.2 mg/mg Normal [facility] Comment on above: Performed By: #### C MP ####[facility] Jxyhheiekg9754[address] [place], [place] [address]Dr. Ricardo Aj [facility] SED RATE >130 Critically high <=30 [facility] Comment on above: Performed By: #### S EDR ####[facility] Whvxqzhsrr8508 [place] [address]Dr. Ricardo Aj URINE MICROSCOPIC ONLYon AMORPHOUS CRYSTALS MODERATE Normal [facility] Comment on above: Performed By: #### SHAYNA ELENA ####[facility] Kexckdncao0762[address] [place], [place] [address]Dr. Nanomarcial Rocha BACTERIA MODERATE Abnormal NONE SEEN [facility] Comment on above: Performed By: #### SHAYNA ELENA ####[facility] Mepkwdzrdo5619 [place] [id number]. Ricardo Rocha Bacteria identified Cx Nom (U) INDICATED Normal [facility] Comment on above: Performed By: #### Jennifer HINOJOSA UMICRO ####[facility] Mwmzcyzyvj8990 [place] [address]Dr. Ricardo Rocha CAST NONE SEEN Normal NONE SEEN [facility] Comment on above: Performed By: #### Jennifer HINOJOSA UMICRO ####[facility] Cbnvkruluc2362 [place] [address]Dr. Ricardo Rocha Crystals LM Nom (Urine sed) SEEN Abnormal NONE SEEN [facility] Comment on above: Performed By: #### Jennifer HINOJOSA UMICRO ####[facility] Ptlmqmykps44[address] [place], [place] [address]Dr. Ricardo Rocha Epithelial cells LM Ql (Urine sed) NONE SEEN Normal NONE SEEN /RARE [facility] Comment on above: Performed By: #### Jennifer HINOJOSA UMICRO ####[facility] Etifljpjmc9468[address] [place], [place] [address]Dr. Ricardo Rocha MUCOUS NONE SEEN Normal NONE SEEN [facility] Comment on above: Performed By: #### Jennifer HINOJOSA UMICRO ####[facility] Yhlsgdtmvj96[address] [place], [place] [address]Dr. Ricardo Rocha RBC 2-5 Abnormal 0-2 [facility] Comment on above: Performed By: #### Jennifer HINOJOSA UMICRO ####[facility] Hcaaynwplp1264[address] [place], [place] [address]Dr. Ricardo Rocha WBC 5-10 Abnormal NONE SEEN [facility] Comment on above: Performed By: #### Jennifer HINOJOSA UMICRO ####[facility] Hnamfrqmif1808[address] [place], [place] [address]Dr. Ricardo Rocha XR CHEST 1 Von 06-11-2022 XR CHEST 1 V Normal [facility] XR FOOT LT MIN 3 VIEWSon XR FOOT LT MIN 3 VIEWS Normal [facility] XR FOOT LT MIN 3 VIEWS Normal [facility] ACETONE SERUMon 06-10-2022 ACETONE Negative Normal NEGATIVE [facility] Comment on above: Performed By: #### A CETON ####[facility] Zcnmurovcj6068 [place] [id number]. Ricardo Rocha AMMONIAon 06-10-2022 Ammonia (P) [Mass/Vol] ug/dL Critically low [facility] Comment on above: Performed By: #### A MM ####[facility] Weudgsqhtu3318 [place] [address]Dr. Ricardo Rocha BLOOD CULTURE ID PANELon A. baumannii Not detected Normal NOT DETECTED [facility] Comment on above: Performed By: #### B CID2 ####[facility] Tgaotggczt2779 [place] [address]Dr. Ricardo Rocha Bacteriodes fragilis Not detected Normal NOT DETECTED [facility] Comment on above: Performed By: #### B CID2 ####[facility] Thottbsttx[address] [place], [place] [address]Dr. Ricardo Rocha BCID CONTROLS PASSED Normal [facility] Comment on above: Performed By: #### B CID2 ####[facility] Ayskkoiewu[address] [place], [place] [address]Dr. Ricardo Rocha BCIDBTHD BLOOD CULTURE BOTTLE INFORMATION Normal [facility] Comment on above: Performed By: #### B CID2 ####[facility] Owjkujntvv488[address] [place], [place] [address]Dr. Ricardo Rocha BCIDHD1 ANTIMICROBIAL RESISTANCE GENES Normal [facility] Comment on above: Performed By: #### B CID2 ####[facility] Wwwbjixogq2282[address] [place], [place] [address]Dr. Ricardo Rocha BCIDHD2 SEE BELOW Normal [facility] Comment on above: Result Comment: Note : Antimicrobial resitance can occur via multiple mechanisms. A Not Detected result for the [employer] antomicrobial resistance gene assays does not indicate antimicrobial susceptibility. Subculturing is required for species identification and susceptibility testing of isolates. Performed By: #### B CID2 ####[facility] Nejejezosz4082[address] [place], [place] [address]Dr. Ricardo Rocha BCIDHD3 Positive Normal [facility] Comment on above: Performed By: #### B CID2 ####[facility] Spxwlalpiu3627 [place] [address]Dr. Ricardo Rocha BCIDHD4 Negative Normal [facility] Comment on above: Performed By: #### B CID2 ####[facility] Clpibstdue2295 [place] [address]Dr. Ricardo Rocha BCIDHD5 YEAST Normal [facility] Comment on above: Performed By: #### B CID2 ####[facility] Exrktmhjwq9683 [place] [address]Dr. Ricardo Rocha Bottle Set: Set 1 Normal [facility] Comment on above: Performed By: #### B CID2 ####[facility] Fsnnddwiao6401[address] [place], [place] [address]Dr. Ricardo Rocha Bottle: Aerobic Normal [facility] Comment on above: Performed By: #### B CID2 ####[facility] Zigogikrxa5263[address] [place], [place] [address]Dr. Ricardo Rocha C. neoformans/gattii Not detected Normal NOT DETECTED [facility] Comment on above: Performed By: #### B CID2 ####[facility] Icgsxinufk25[address] [place], [place] [address]Dr. Ricardo Rocha Lauren albicans Not detected Normal NOT DETECTED [facility] Comment on above: Performed By: #### B CID2 ####[facility] Uvgxeovwii1118[address] [place], [place] [address]Dr. Ricardo Rocha Lauren auris Not detected Normal NOT DETECTED [facility] Comment on above: Performed By: #### B CID2 ####[facility] Nesghcuuft6792[address] [place], [place] [address]Dr. Ricardo Rocha Lauren glabrata Not detected Normal NOT DETECTED [facility] Comment on above: Performed By: #### B CID2 ####[facility] Rpbfdjfpfb4145[address] [place], [place] [address]Dr. Ricardo Rocha Lauren Krusei Not detected Normal NOT DETECTED [facility] Comment on above: Performed By: #### B CID2 ####[facility] Hutiogtjcz9611[address] [place], [place] [address]Dr. Ricardo Rocha Lauren Parapsilosis Not detected Normal NOT DETECTED [facility] Comment on above: Performed By: #### B CID2 ####[facility] Uvfcjzpdae[address] [place], [place] [address]Dr. Ricardo Rocha Lauren Tropicalis Not detected Normal NOT DETECTED [facility] Comment on above: Performed By: #### B CID2 ####[facility] Wcinwlyqzn2297 [place] [address]Dr. Nanomarcial Rocha CTX-M Resistant Gene Not Applicable Normal NOT DETECTE D [facility] Comment on above: Performed By: #### B CID2 ####[facility] Jlbdvfmqff4632[address] [place], [place] [address]Dr. Ricardo Rocha E. Cloacae complex Not detected Normal NOT DETECTED [facility] Comment on above: Performed By: #### B CID2 ####[facility] Aqaivfwxvv1927[address] [place], [place] [address]Dr. Ricardo Rocha E. faecalis Not detected Normal NOT DETECTED [facility] Comment on above: Performed By: #### B CID2 ####[facility] Wjpnzbfydp01[address] [place], [place] [address]Dr. Ricardo Rocha E. faecium Not detected Normal NOT DETECTED [facility] Comment on above: Performed By: #### B CID2 ####[facility] Zfyysahrhs8[address] [place], [place] [address]Dr. Ricardo Rocha Enterobacteriaceae Not detected Normal NOT DETECTED [facility] Comment on above: Performed By: #### B CID2 ####[facility] Kjlwrshchz3847[address] [place], [place] [address]Dr. Ricardo Rocha Escherichia coli Not detected Normal NOT DETECTED [facility] Comment on above: Performed By: #### B CID2 ####[facility] Xrjfzwdlzq[address] [place], [place] [address]Dr. Ricardo Rocha H. influenzae Not detected Normal NOT DETECTED [facility] Comment on above: Performed By: #### B CID2 ####[facility] Shywngdwsl607[address] [place], [place] [address]Dr. Ricardo Rocha IMP Resistant Gene Not Applicable Normal NOT DETECTED [facility] Comment on above: Performed By: #### B CID2 ####[facility] Rnqlpggtut6302 [place] [id number]. Ricardo Rocha K. oxytoca Not detected Normal NOT DETECTED [facility] Comment on above: Performed By: #### B CID2 ####[facility] Xwdofchwyx9067 [place] [address]Dr. Ricardo Rocha K. pneumoniae Not detected Normal NOT DETECTED [facility] Comment on above: Performed By: #### B CID2 ####[facility] Dogxcgzpql3530 [place] [address]Dr. Ricardo Rocha Klebsiella aerogenes Not detected Normal NOT DETECTED [facility] Comment on above: Performed By: #### B CID2 ####[facility] Latgshiabf1843[address] [place], [place] [address]Dr. Ricardo Rocha KPC Resistant Gene Not Applicable Normal NOT DETECTED [facility] Comment on above: Performed By: #### B CID2 ####[facility] Hhxipevott7082[address] [place], [place] [address]Dr. Ricardo Rocha List. monocytogenes Not detected Normal NOT DETECTED [facility] Comment on above: Performed By: #### B CID2 ####[facility] Zciknwdwgd1825[address] [place], [place] [address]Dr. Ricardo Rocha Mcr-1 Resistant Gene Not Applicable Normal NOT DETECTE D [facility] Comment on above: Performed By: #### B CID2 ####[facility] Wfumzoucks8076[address] [place], [place] [address]Dr. Nanolan Aj mecA/C Not Applicable Normal NOT DETECTED [facility] Comment on above: Performed By: #### B CID2 ####[facility] Igvarkthzd7226 [place] [address]Dr. Nanolan Aj mecA/C MREJ Detected Abnormal NOT DETECTED [facility] Comment on above: Performed By: #### B CID2 ####[facility] Gntrpvyfnx6689 [place] [address]Dr. Ricardo Rocha N. meningitidis Not detected Normal NOT DETECTED The [facility] Comment on above: Performed By: #### B CID2 ####[facility] Vtfpniqbcj7[address] [place], [place] [address]Dr. Ricardo Rocha NDM Resistant Gene Not Applicable Normal NOT DETECTED [facility] Comment on above: Performed By: #### B CID2 ####[facility] Brgvmzedkr730218 [address] [place], [place] [address]Dr. Ricardo Rocha Oxa-48-like Not Applicable Normal NOT DETECTED [facility] Comment on above: Performed By: #### B CID2 ####[facility] Pxbvrryfkp076318 [address] [place], [place] [address]Dr. Ricardo Rocha Proteus Not detected Normal NOT DETECTED [facility] Comment on above: Performed By: #### B CID2 ####[facility] Eutaosudqw237918 [address] [place], [place] [address]Dr. Ricardo Rocha Pseud. aeruginosa Not detected Normal NOT DETECTED [facility] Comment on above: Performed By: #### B CID2 ####[facility] Fydwbugdyx7729[address] [place], [place] [address]Dr. Ricardo Rocha S. maltophilia Not detected Normal NOT DETECTED The [facility] Comment on above: Performed By: #### B CID2 ####[facility] Lpmyjdzguo7027[address] [place], [place] [address]Dr. Ricardo Rocha Salmonella Not detected Normal NOT DETECTED [facility] Comment on above: Performed By: #### B CID2 ####[facility] Dwjeiayqoy138[address] [place], [place] [address]Dr. Ricardo Rocha Seratia marcescens Not detected Normal NOT DETECTED [facility] Comment on above: Performed By: #### B CID2 ####[facility] Iscofslsqj181118 [address] [place], [place] [address]Dr. Ricardo Rocha Site: LEFT AC IV START Normal [facility] Comment on above: Performed By: #### B CID2 ####[facility] Beyeoyodeg837[address] [place], [place] [address]Dr. Ricardo Rocha Staph. aureus Detected Critically abnormal NOT DETECTED [facility] Comment on above: Performed By: #### B CID2 ####[facility] Eqdkhgvhni336818 [address] [place], [place] [address]Dr. Ricardo Rocha Staph. epidermidis Not detected Normal NOT DETECTED [facility] Comment on above: Performed By: #### B CID2 ####[facility] Mymcpmpvrp025[address] [place], [place] [address]Dr. Ricardo Rocha Staph. lugdunensis Not detected Normal NOT DETECTED [facility] Comment on above: Performed By: #### B CID2 ####[facility] Cglgejchlv879[address] [place], [place] [address]Dr. Ricardo Rocha Staphylococcus Detected Critically abnormal NOT DETECTED [facility] Comment on above: Performed By: #### B CID2 ####[facility] Qlwtmehhat551118 [address] [place], [place] [address]Dr. Ricardo Rocha Strep. agalactiae Not detected Normal NOT DETECTED [facility] Comment on above: Performed By: #### B CID2 ####[facility] Kukqcmqndy8046[address] [place], [place] [address]Dr. Ricardo Rocha Strep. pneumoniae Not detected Normal NOT DETECTED [facility] Comment on above: Performed By: #### B CID2 ####[facility] Cgwluisbty164[address] [place], [place] [address]Dr. Ricardo Rocha Strep. pyogenes Not detected Normal NOT DETECTED The [facility] Comment on above: Performed By: #### B CID2 ####[facility] Yqzneoqvuj8311[address] [place], [place] [address]Dr. Ricardo Rocha Streptococcus Not detected Normal NOT DETECTED [facility] Comment on above: Performed By: #### B CID2 ####[facility] Zevlxwzlym2752[address] [place], [place] [address]Dr. Ricardo Rocha Layne/B Resist. Gene Not Applicable Normal NOT DETECTED [facility] Comment on above: Performed By: #### B CID2 ####[facility] Hlcwhztgwd943418 [address] [place], [place] [address]Dr. Ricardo Rocha VIM Resistant Gene Not Applicable Normal NOT DETECTED [facility] Comment on above: Performed By: #### B CID2 ####[facility] Qsxsulhymo318718 [address] [place], [place] [address]Dr. Ricardo Rocha [facility] 02 MODE ROOM AIR Normal [facility] Comment on above: Performed By: #### A BG ####[facility] Jfuoaetwps7396 [place] [address]Dr. Ricardo Rocha ALLENS TEST Positive Normal [facility] Comment on above: Performed By: #### A BG ####[facility] Erdauvnulk2279 [place] [address]Dr. Ricardo Rocha Base excess Calc (Bld) [Moles/Vol] -4.5000 mmol/L Critically low -2.0-2.[address] [facility] Comment on above: Performed By: #### A BG ####[facility] Qqpccapfjo020618 [address] [place], [place] [address]Dr. Ricardo Rocha BIPAP PRESSURE Normal [facility] Comment on above: Performed By: #### A BG ####[facility] Hchcddptib635918 [address] [place], [place] [address]Dr. Ricardo Rocha CPAP [facility] Comment on above: Performed By: #### A BG ####[facility] Qkxmcysssg3166[address] [place], [place] [address]Dr. Ricardo Rocha FIO2 Normal [facility] Comment on above: Performed By: #### A BG ####[facility] Kkmtdkdmgn0552[address] [place], [place] [address]Dr. Ricardo Rocha HCO3 (Bld) [Moles/Vol] 21.4 mmol/L Critically low 22.0-26.0 [facility] Comment on above: Performed By: #### A BG ####[facility] Kplfonwmbf9784[address] [place], [place] [address]Dr. Ricardo Rohca LPM Normal [facility] Comment on above: Performed By: #### A BG ####[facility] Uchdjpgqkp3668[address] [place], [place] [address]Dr. Ricardo Rocha MINUTE VOLUME Normal [facility] Comment on above: Performed By: #### A BG ####[facility] Jrfbupvxha195518 [address] [place], [place] [address]Dr. Ricardo Rocha Oxygen (Bld) [Partial pressure] 66.4 mm[Hg] Critically low 80.0-100.0 [facility] Comment on above: Performed By: #### A BG ####[facility] Yrqlzedxqf9141 [place] [address]Dr. Ricardo Rocha Oxygen saturation in Blood 94.6 % Critically low 95.0-100.[address] [facility] Comment on above: Performed By: #### A BG ####[facility] Senuyehbpq7999 [place] [address]Dr. Ricardo Rocha PCO2 29.4 mmHg Critically low 35.0-45.0 [facility] Comment on above: Performed By: #### A BG ####[facility] Kemhjbypif9098 [place] [address]Dr. Ricardo Rocha PEEP [facility] Comment on above: Performed By: #### A BG ####[facility] Gbgodrogug8021 [place] [address]Dr. Ricardo Rocha pH (Bld) 7.436 [pH] Normal 7.350-7.[address] [facility] Comment on above: Performed By: #### A BG ####[facility] Zyszeqfutd0873 [place] [address]Dr. Ricardo Rocha PIP [facility] Comment on above: Performed By: #### A BG ####[facility] Zicgazplre8584[address] [place], [place] [address]Dr. Ricardo Rocha PS [facility] Comment on above: Performed By: #### A BG ####[facility] Kzyylqtaae176[address] [place], [place] [address]Dr. Ricardo Rocha PUNCTURE SITE LR Normal [facility] Comment on above: Performed By: #### A BG ####[facility] Zekqxhnncr6611 [place] [address]Dr. Ricardo Rocha RATE [facility] Comment on above: Performed By: #### A BG ####[facility] Afyhixgrcv050[address] [place], [place] [address]Dr. Ricardo Rocha VENT MODE [facility] Comment on above: Performed By: #### A BG ####[facility] Mfnpifkqjh[address] [place], [place] [address]Dr. Ricardo Rocha VT Normal [facility] Comment on above: Performed By: #### A BG ####[facility] Cuscxfvgff6645 [place] [address]Dr. Ricardo Rocha CBC W MANUAL DIFFon 06-10-20 22 ATYPICAL LYMPH # Normal [facility] Comment on above: Performed By: #### C BCMAN ####[facility] Cmvliiyesi5605 [place] [address]Dr. Ricardo Rocha ATYPICAL LYMPH % Normal [facility] Comment on above: Performed By: #### C BCMAN ####[facility] Sevhtwtoqc4539 [place] [address]Dr. Ricardo Rocha BAND # 1.3 103/ul Critically high 0.0-0.3 [facility] Comment on above: Performed By: #### C BCMAN ####[facility] Isfryzagzl7835[address] [place], [place] [address]Dr. Ricardo Rocha BAND % 12 % Critically high 0-5 [facility] Comment on above: Performed By: #### C BCRED ####[facility] Hyrnulmvge1452[address] [place], [place] [address]Dr. Ricardo Rocha BASOM # 0.00 103/ul Normal 0.00-0.10 [facility] Comment on above: Performed By: #### C BCRED ####[facility] Jvrfatpoqo3180 [place] [address]Dr. Ricardo Rocha BASOM % 0.0 % Critically low 0.2-2.0 [facility] Comment on above: Performed By: #### C BCRED ####[facility] Wpbjcigjdn8465 [place] [address]Dr. Ricardo Rocha BLAST # Normal [facility] Comment on above: Performed By: #### C BCMAN ####[facility] Ubfagitllb7728[address] [place], [place] [address]Dr. Ricardo Rocha BLAST % Normal [facility] Comment on above: Performed By: #### C BCRED ####[facility] Gawqrjqupd3252[address] [place], [place] [address]DrIrina Rocha CORRECTED WBC Normal 4.0-11.0 [facility] Comment on above: Performed By: #### C BCRED ####[facility] Booszolwfp4182 [place] [id number] Rocha EOS # 0.00 103/ul Normal 0.00-0.[address] [facility] Comment on above: Performed By: #### C BCRED ####[facility] Oomcbybzky1608 [place] [id number]. Ricardo Rocha EOS% 0.0 % Critically low 0.9-7.0 [facility] Comment on above: Performed By: #### C DWAINE ####[facility] Xdgijleqnb8960 [place] [address]Dr. Ricardo Rocha HCT 35.5 % Critically low 36.0-48.0 [facility] Comment on above: Performed By: #### C DWAINE ####[facility] Hpivpmutzi1473 [place] [address]Dr. Ricardo Rocha HGB 11.4 g/dl Critically low 12.0-16.0 [facility] Comment on above: Performed By: #### C DWAINE ####[facility] Fqfzdcfazb4517 [place] [id number]. Ricardo Rocha HYPERSEG NEUT 3+ Normal [facility] Comment on above: Performed By: #### C BCRED ####[facility] Koggytxwcx2147 [place] [id number]. Ricardo Rocha LYMPHM # 0.21 103/ul Critically low 1.20-3.80 [facility] Comment on above: Performed By: #### C BCRED ####[facility] Icsstmhkvb7898 [place] [id number]. Ricardo Rocha LYMPHM% 2.0 % Critically low 20.5-60.0 [facility] Comment on above: Performed By: #### C DWAINE ####[facility] Cyuzmulwpb7336 [place] [phone] Rocha MCH 25.3 pg Critically low 26.7-34.0 [facility] Comment on above: Performed By: #### C DWAINE ####[facility] Vkjmiovbdu7517 [place] [id number]. Ricardo Rocha MCHC 32.1 g/dl Normal 29.9-35.2 [facility] Comment on above: Performed By: #### C DWAINE ####[facility] Cyqurfpnqg9145 [place] [phone]. Ricardo Rocha MCV 78.9 fL Critically low 81.0-99.0 [facility] Comment on above: Performed By: #### C DWAINE ####[facility] Xxwnsjdtjf9045 [place] [phone]. Ricardo Rocha METAMYELOCYTE # Normal [facility] Comment on above: Performed By: #### C DWAINE ####[facility] Rcwcaxkajx9575 [place] [phone]. Ricardo Rocha METAMYELOCYTE % Normal [facility] Comment on above: Performed By: #### Esteban ISIDRO ####[facility] Aymmpbpguo2782 [place] [id number]. iRcardo Rocha MONOM# 0.32 103/ul Normal 0.30-0.80 [facility] Comment on above: Performed By: #### C DWAINE ####[facility] Syencageyz5984 [place] [phone]. Ricardo Rocha MONOM% 3.0 % Normal 1.7-12.0 [facility] Comment on above: Performed By: #### Esteban ISIDRO ####[facility] Mlyyhtwbsx6557 [place] [phone]. Ricardo Rocha MPV 10.9 fL Normal 9.5-13.5 [facility] Comment on above: Performed By: #### C DWAINE ####[facility] Qzhvekzloo[address] [place], [place] [address]Dr. Ricardo Rocha MYELOCYTE # Normal [facility] Comment on above: Performed By: #### Esteban ISIDRO ####[facility] Orvgwotffj67[address] [place], [place] [address]Dr. Riacrdo Rocha MYELOCYTE % Normal [facility] Comment on above: Performed By: #### C DWAINE ####[facility] Deosruybxv4588 [place], [place] [address]Jo. Ricardo Rocha NRBC Normal [facility] Comment on above: Performed By: #### C DWAINE ####[facility] Jdciylqbfo8029 [place], [place] [address]Zb. Ricardo Rocha PLT 180 103/ul Normal 150-450 [facility] Comment on above: Performed By: #### C DWAINE ####[facility] Fcjkhbmqgd8790 [place], [place] [address]Cj. Ricardo Rocha RBC 4.50 106/ul Normal 4.20-5.40 [facility] Comment on above: Performed By: #### C DWAINE ####[facility] Mjscoucqqp4644 [place] [phone]. Ricardo Rocha RDW 12.8 % Normal 11.0-15.[address] [facility] Comment on above: Performed By: #### Esteban ISIDRO ####[facility] Wrfcunpxct3858 [place] [phone]. Ricardo Rocha SEG # 8.71 103/ul Critically high 1.40-6.50 [facility] Comment on above: Performed By: #### Esteban ISIDRO ####[facility] Oirdzgrfuy9594 [place] [phone]. Ricardo Rocha SEG % 83.0 % Critically high 43.0-75.0 [facility] Comment on above: Performed By: #### Esteban ISIDRO ####[facility] Pkpmkzbysj6375 [place] [phone]. Ricardo Rocha TOXIC GRANULATION 2+ Normal [facility] Comment on above: Performed By: #### Esteban ISIDRO ####[facility] Pxuqsayqft7369 [place] [phone]. Ricardo Rocha WBC 10.5 103/ul Normal 4.0-11.0 [facility] Comment on above: Performed By: #### Esteban ISIDRO ####[facility] Zpmogztdnj6588 [place] [phone]. Ricardo Rocha CULTURE BLOODon 10-21-2022 Microscopic examination of blood, culture Culture Observations: Positive blood culture. Pediatric bottle. Culture Observations: Please refer to for susceptibility testing. Isolate 1 Staphylococcus aureus Growth of Normal [facility] Comment on above: Performed By: #### B LDCX2 ####[facility] Vfnjbfygny4803 [place] [address]Dr. Ricardo Rocha LACTATE/LACTIC ACIDon 2021 Lactate [Moles/Vol] 1.9 mmol/L Normal 0.4-1.9 [facility] Comment on above: Performed By: #### L ACT ####[facility] Gjzykldrqw8810 [place] [address]Dr. Ricardo Rocha LIPASEon 06-10-2022 Lipase [Catalytic activity/Vol] 164.0 U/L Normal 73.0-393.[address] [facility] Comment on above: Performed By: #### H STROPN, LIPA, CMP, TSH ####[facility] Oyqeahnjzf9611 [place] [address]Dr. Ricardo Rocha POINT OF CARE GLUCOSEon 05-22 Glucose [Mass/Vol] 583 mg/dL Critically high 74-106 [facility] Comment on above: Result Comment: Resu lt Not Confirmed Performed By: #### P OCGLUC ####[facility] Ysdadhwptq5840 [place] [address]Dr. Ricardo Rocha PROF 14(COMP METB)on 022 Albumin [Mass/Vol] 3.0 g/dL Critically low 3.4-5.0 [facility] Comment on above: Performed By: #### H STROPN, LIPA, CMP, TSH ####[facility] Zvyhbbjkkk0418 [place] [address]Dr. Ricardo Rocha Albumin/Globulin [Mass ratio] 0.5 {ratio} Normal [facility] Comment on above: Performed By: #### H STROPN, LIPA, CMP, TSH ####[facility] Utnwsehvmd7935 [place] [address]Dr. Ricardo Rocha ALP [Catalytic activity/Vol] 116 U/L Normal 46-[address] [facility] Comment on above: Performed By: #### H STROPN, LIPA, CMP, TSH ####[facility] Heusdigyia8254 [place] [address]Dr. Ricardo Rocha ALT [Catalytic activity/Vol] 15 U/L Normal 14-[address] [facility] Comment on above: Performed By: #### H STROPN, LIPA, CMP, TSH ####[facility] Zfunvzohka3028 [place] [address]Dr. Ricardo Rocha Anion gap [Moles/Vol] 15.7 mmol/L Normal [facility] Comment on above: Performed By: #### H STROPN, LIPA, CMP, TSH ####[facility] Mgmkwfzfvj36[address] [place], [place] [address]Dr. Ricardo Rocha AST [Catalytic activity/Vol] 16 U/L Normal 15-[address] [facility] Comment on above: Performed By: #### H STROPN, LIPA, CMP, TSH ####[facility] Aqoirewxlg8664[address] [place], [place] [address]Dr. Ricardo Rocha Bilirubin [Mass/Vol] 0.5 mg/dL Normal 0.2-1.[address] [facility] Comment on above: Performed By: #### H STROPN, LIPA, CMP, TSH ####[facility] Oudgzbdkfy6424 [place] [address]Dr. Ricardo Rocha Calcium [Mass/Vol] 9.4 mg/dL Normal 8.5-10.1 [facility] Comment on above: Performed By: #### H STROPN, LIPA, CMP, TSH ####[facility] Dvrwzivowf4181 [place] [address]Dr. Ricardo Rocha Chloride [Moles/Vol] 95 mmol/L Critically low 98-107 [facility] Comment on above: Performed By: #### H STROPN, LIPA, CMP, TSH ####[facility] Inbsxlvhhf9967 [place] [address]Dr. Ricardo Rocha CO2 [Moles/Vol] 22.1 mmol/L Normal 21.0-32.0 [facility] Comment on above: Performed By: #### H STROPN, LIPA, CMP, TSH ####[facility] Bxfplscjkl9396 [place] [address]Dr. Ricardo Rocha Creatinine [Mass/Vol] 2.23 mg/dL Critically high 0.55-1.[address] [facility] Comment on above: Performed By: #### H STROPN, LIPA, CMP, TSH ####[facility] Zobjiovelc1670 [place] [address]Dr. Ricardo Rocha EGFR-AF VENEZUELAN 27 mL/min/1.73m2 Critically low >=[address] [facility] Comment on above: Performed By: #### H STROPN, LIPA, CMP, TSH ####[facility] Qqrbpxsmti9198 [place] [address]Dr. Ricardo Rocha EGFR-NON AF VENEZUELAN 22 mL/min/1.73m2 Critically low >=[address] [facility] Comment on above: Performed By: #### H STROPN, LIPA, CMP, TSH ####[facility] [address] [place] [address]Dr. Ricardo Rocha Globulin (S) [Mass/Vol] 6.5 g/dL Normal [facility] Comment on above: Performed By: #### H STROPN, LIPA, CMP, TSH ####[facility] W[address]putbozu[address] [place] [address]Dr. Ricardo Rocha Glucose [Mass/Vol] 593 mg/dL Critically high 74-106 [facility] Comment on above: Performed By: #### H STROPN, LIPA, CMP, TSH ####[facility] Unxdquiswa[address] [place] [address]Dr. Ricardo Rocha Potassium [Moles/Vol] 3.8 mmol/L Normal 3.5-5.[address] [facility] Comment on above: Performed By: #### H STROPN, LIPA, CMP, TSH ####[facility] En[address]iv[address] [place] [address]Dr. Ricardo Rocha Protein [Mass/Vol] 9.5 g/dL Critically high 6.4-8.2 [facility] Comment on above: Performed By: #### H STROPN, LIPA, CMP, TSH ####[facility] [address]iflsaywz[address] [place] [address]Dr. Ricardo Rocha Sodium [Moles/Vol] 129 mmol/L Critically low 136-145 Th e [facility] Comment on above: Performed By: #### H STROPN, LIPA, CMP, TSH ####[facility] Zs[address] [place], [place] [address]Dr. Ricardo Rocha Urea nitrogen [Mass/Vol] 40.0 mg/dL Critically high 7.0-18.[address] [facility] Comment on above: Performed By: #### H STROPN, LIPA, CMP, TSH ####[facility] Xjylbofx[address] [place], [place] [address]Dr. Ricardo Rocha Urea nitrogen/Creatinine [Mass ratio] 17.9 mg/mg Normal [facility] Comment on above: Performed By: #### H STROPN, LIPA, CMP, TSH ####[facility] [address]qfcl[address] [place], [place] [address]Dr. Ricardo Rocha PROTIMEon 06-10-2022 INR Coag (PPP) [Relative time] 1.00 {INR} Normal [facility] Comment on above: Performed By: #### P TT, PT ####[facility] Krhyrugocg[address] [place], [place] [address]Dr. Ricardo Rocha INR GUIDELINES SEE BELOW Normal [facility] Comment on above: Result Comment: AMBROSIO RED INR: 2.0 - 3.0 CONDITIONS NOT LISTED BELOW 2.5 - 3.5 FOR PROSTHETIC HEART VALVE REPLACEMENT 2.5 - 3.5 RECURRENT THROMBOSIS Performed By: #### P TT, PT ####[facility] Vxdntrcret[address] [place], [place] [address]Dr. Ricardo Rocha PT Coag (PPP) [Time] 10.8 s Normal 9.0-11.[address] [facility] Comment on above: Performed By: #### P TT, PT ####[facility] Tjudw[address] [place], [place] [address]Dr. Ricardo Rocha PTTon 06-10-2022 aPTT Coag (Bld) [Time] 31.7 s Normal 22.3-36.2 [facility] Comment on above: Performed By: #### P TT, PT ####[facility] Bhredogerk[address] [place], [place] [address]Dr. Ricardo Rocha TROPONIN, HIGH SENSITIVITYon 06-10-2022 HSTROP 30.9 pg/mL Normal 4.0-51.3 [facility] Comment on above: Result Comment: CUT- OFF POINTS HAVE BEEN ESTABLISHED BASED ON THE FOURTH UNIVERSAL DEFINITIONS OF MYOCARDIALINFARCTION. THE UPPER REFERENCE LIMIT (URL) OF TROPONIN, DEFINED THE 99TH PERCENTILE OFcTnI DISTRIBUTION IN A REFERENCE POPULATION, HAS BEEN CONFIRMED THE DECISION THRESHOLDFOR ME DIAGNOSIS. Performed By: #### H ANGELINE, SYLWIA, CMP, TSH ####[facility] [address] [place], [place] [address]Dr. Nanomarcial Rocha TSHon 06-10-2022 TSH 0.147 uIU/mL Critically low 0.358-3.740 [facility] Comment on above: Performed By: #### H ANGELINE, LIPA, CMP, TSH ####[facility] [address] [place], [place] [address]Dr. Nanomarcial Rocha XR FOOT ALINE MIN 3 VIEWSon XR FOOT ALINE MIN 3 VIEWS Normal [facility] XR HAND RT MIN 3Von 06-02-20 XR HAND RT MIN 3V Normal [facility] CULTURE WOUNDon 05-15-2022 CULTURE WOUND Normal [facility] Comment on above: Performed By: #### W OUNDCX ####[facility] [address]so[address]pe[address] [place], [place] [address]Dr. Ricardo Rocha CBC AUTO DIFFon 2022 BASO # 0.0 103/ul Normal 0.0-0.1 [facility] Comment on above: Performed By: #### C BC ####[facility] Ygemerlsce[address] [place], [place] [address]Dr. Ricardo Aj Basophils/100 WBC (Bld) 0.7 % Normal 0.2-2.0 [facility] Comment on above: Performed By: #### C BC ####[facility] [address] [place] [id number]. Ricardo Rocha EO # 0.1 103/ul Normal 0.0-0.7 [facility] Comment on above: Performed By: #### C BC ####[facility] S[address]keitlh[address] [place] [address]Dr. Ricardo Rocha Eosinophils/100 WBC (Bld) 2.1 % Normal 0.9-7.0 [facility] Comment on above: Performed By: #### C BC ####[facility] [address]gqtp[address] [place] [address]Dr. Ricardo Rocha Erythrocyte distribution width (RBC) [Ratio] 13.2 % Normal 11.0-15.0 [facility] Comment on above: Performed By: #### C BC ####[facility] [address] [place] [address]Dr. Ricardo Rocha Hematocrit (Bld) [Volume fraction] 36.6 % Normal 36.0-48.0 [facility] Comment on above: Performed By: #### C BC ####[facility] [address]ws[address]tk[address] [place] [address]Dr. Ricardo Rocha Hemoglobin (Bld) [Mass/Vol] 11.9 g/dL Critically low 12.0-16.0 [facility] Comment on above: Performed By: #### C BC ####[facility] [address] [place] [address]Dr. Ricardo Rocha IG # 0.03 10e3/ul Normal 0.00-0.03 [facility] Comment on above: Performed By: #### C BC ####[facility] Rdkovmeuxs[address] [place] [address]Dr. Ricardo Rocha IG % 0.5 % Normal 0.0-0.5 [facility] Comment on above: Performed By: #### C BC ####[facility] J[address]uffe[address] [place] [address]Dr. Ricardo Rocha LYMPH # 2.1 103/ul Normal 1.2-3.8 [facility] Comment on above: Performed By: #### C BC ####[facility] [address]hwdcp[address] [place] [phone]. Ricardo Rocha Lymphocytes/100 WBC (Bld) 33.8 % Normal 20.5-60.0 [facility] Comment on above: Performed By: #### C BC ####[facility] [address]sp[address] [place] [id number]. Ricardo Aj MANUAL DIFF REQ NO Normal [facility] Comment on above: Performed By: #### C BC ####[facility] [address]mpnjui[address] [place] [address]Dr. Ricardo Aj MCH (RBC) [Entitic mass] 25.7 pg Critically low 26.7-34.0 [facility] Comment on above: Performed By: #### C BC ####[facility] [address]yju[address] [place] [address]Dr. Ricardo Aj MCHC (RBC) [Mass/Vol] 32.5 g/dL Normal 29.9-35.2 [facility] Comment on above: Performed By: #### C BC ####[facility] [address]jt[address]le[address] [place] [address]Dr. Ricardo Aj MCV (RBC) [Entitic vol] 79.0 fL Critically low 81.0-99.0 [facility] Comment on above: Performed By: #### C BC ####[facility] Wjsu[address] [place], [place] [address]Dr. Nanomarcial Aj MONO # 0.4 103/ul Normal 0.3-0.8 [facility] Comment on above: Performed By: #### C BC ####[facility] [address]whr[address] [place] [address]Dr. Nanomarcial Rocha Monocytes/100 WBC (Bld) 6.2 % Normal 1.7-12.0 [facility] Comment on above: Performed By: #### C BC ####[facility] Gnkbeujy[address] [place], [place] [address]Dr. Ricardo Rohca NEUT # 3.5 103/ul Normal 1.4-6.5 [facility] Comment on above: Performed By: #### C BC ####[facility] [address] [place] [phone]. Ricardo Rocha Neutrophils/100 WBC (Bld) 56.7 % Normal 43.0-75.0 [facility] Comment on above: Performed By: #### C BC ####[facility] [address]wz[address] [place] [phone]. Ricardo Rocha Platelet mean volume (Bld) [Entitic vol] 10.9 fL Normal 9.5-13.5 [facility] Comment on above: Performed By: #### C BC ####[facility] [address]oc[address] [place] [phone]. Nanomarcial Rocha PLT 241 103/ul Normal 150-450 [facility] Comment on above: Performed By: #### C BC ####[facility] Palnorqolj[address] [place] [phone]. Ricardo Aj RBC 4.63 106/ul Normal 4.20-5.[address] [facility] Comment on above: Performed By: #### C BC ####[facility] V[address]fe[address]ydvp[address] [place] [phone]. Ricardo Aj WBC 6.1 103/ul Normal 4.0-11.0 [facility] Comment on above: Performed By: #### C BC ####[facility] T[address]lmu[address] [place] [phone]. Ricardo Rocha PROF CHEM 8 (BAS METB)on Anion gap [Moles/Vol] 11.8 mmol/L Normal [facility] Comment on above: Performed By: #### B MP ####[facility] [address]qjdahmo[address] [place] [phone]. Ricardo Rocha Calcium [Mass/Vol] 9.2 mg/dL Normal 8.5-10.1 [facility] Comment on above: Performed By: #### B MP ####[facility] Dztsc[address]qevo[address] [place] [phone]. Ricardo Rocha Chloride [Moles/Vol] 99 mmol/L Normal 98-107 [facility] Comment on above: Performed By: #### B MP ####[facility] Xrxuauqcyp[address] [place] [phone]. Ricardo Rocha CO2 [Moles/Vol] 24.7 mmol/L Normal 21.0-32.0 [facility] Comment on above: Performed By: #### B MP ####[facility] Wi[address]fnmoo[address] [place] [phone]. Ricardo Rocha Creatinine [Mass/Vol] 1.48 mg/dL Critically high 0.55-1.[address] [facility] Comment on above: Performed By: #### B MP ####[facility] Lfultcstva[address] [place] [phone]. Ricardo Rocha EGFR-AF VENEZUELAN 43 mL/min/1.73m2 Critically low >=[address] [facility] Comment on above: Performed By: #### B MP ####[facility] [address] [place], [place] [address]Dr. Ricardo Rocha EGFR-NON AF VENEZUELAN 36 mL/min/1.73m2 Critically low >=[address] [facility] Comment on above: Performed By: #### B MP ####[facility] Ymqkcflcvh[address] [place] [phone]. Ricardo Rocha Glucose [Mass/Vol] 431 mg/dL Critically high 74-106 [facility] Comment on above: Performed By: #### B MP ####[facility] Xblzmmnjzg24[address] [place] [phone]. Ricardo Rocha Potassium [Moles/Vol] 4.5 mmol/L Normal 3.5-5.[address] [facility] Comment on above: Performed By: #### B MP ####[facility] K[address]cyqxp[address] [place] [phone]. Ricardo Rocha Sodium [Moles/Vol] 131 mmol/L Critically low 136-145 [facility] Comment on above: Performed By: #### B MP ####[facility] [address]whefrt[address] [place] [phone]. Ricardo Rocha Urea nitrogen [Mass/Vol] 23.0 mg/dL Critically high 7.0-18.[address] [facility] Comment on above: Performed By: #### B MP ####[facility] [address] [place], [place] [address]Ft. Ricardo Rocha Urea nitrogen/Creatinine [Mass ratio] 15.5 mg/mg Normal [facility] Comment on above: Performed By: #### B MP ####[facility] Xmf[address]xeh[address] [place], [place] [address]Ml. Ricardo Rocha XR TOES ALINE MIN 2 Von 2021 XR TOES ALINE MIN 2 V Normal [facility] HEALTH 01-21-2021 ALLIED HEALTH HNO ID: [id number] Author: RT Parveen(R) Service: ? Author Type: Termite Helper Type: Allied Health Filed: 01/20/2021 10:30 PM [...] Parveen(R) January 20, 2021 10:29 PM Normal [facility] Basic Metabolic Panlon 01-21 Anion gap [Moles/Vol] 7 mmol/L Low 9-18 [facility] Calcium [Mass/Vol] 8.8 mg/dL Normal 8.5-10.2 [facility] Chloride [Moles/Vol] 99 mmol/L Normal 97-105 [facility] CO2 [Moles/Vol] 25 mmol/L Normal 22-30 [facility] Creatinine [Mass/Vol] 1.51 mg/dL High 0.58-0.96 [facility] eGFR- Amer. 42 Normal [facility] eGFR-All Other Races 35 . Normal [facility] Comment on above: Result Comment: eGFR [...] GFR. Glucose [Mass/Vol] 141 mg/dL High 74-99 [facility] Comment on above: Result Comment: The [place] [employer] (ADA) provides guidance for cutoff [...] Standards of Medical Care in Diabetes 2016, [place] [employer]. Diabetes Care. 2016.39(Suppl 1). Potassium [Moles/Vol] 4.7 mmol/L Normal 3.7-5.1 [facility] Sodium [Moles/Vol] 131 mmol/L Low 136-144 [facility] Urea nitrogen [Mass/Vol] 42 mg/dL High 7-21 [facility] CBCon 01-21-2021 Absolute nRBC <0.01 [facility] width (RBC) [Ratio] 13.1 % Normal 11.5-15.0 [facility] Hematocrit (Bld) [Volume fraction] 30.0 % Low 36.0-46.0 [facility] Hemoglobin (Bld) [Mass/Vol] 9.5 g/dL Low 11.5-15.5 [facility] MCH 24.4 pG Low 26.0-34.0 [facility] MCHC (RBC) [Mass/Vol] 31.7 g/dL Normal 30.5-36.0 [facility] MCV (RBC) [Entitic vol] 77.1 fL Low 80.0-100.0 [facility] Platelet mean volume (Bld) [Entitic vol] 11.1 fL Normal 9.0-12.7 [facility] Platelets (Bld) [#/Vol] 358 10*3/uL Normal 150-400 [facility] RBC (Bld) [#/Vol] 3.89 10*6/uL Low 3.90-5.20 [facility] WBC (Bld) [#/Vol] 9.64 10*3/uL Normal 3.70-11.00 [facility] CNDSon 01-21-2021 CNDS HNO ID: [id number] Author: Inna Hansen DO Service: Hospital Medicine [...] Team: Attending Provider: Inna Hansen DO Physician Centrifuge Separator Operator: Garrett Simon PA-C Consulting: Taurus Ballard MD [...] PCP: referred to a new PCP in [place]. Future Appointments Date Time Provider Department Center 01/29/2021 11:40 AM Taurus Ballard MD [facility] The patient's risk for 30-day readmission is determined using the following contributing factors: Pt variables contributing to increased readmission risk: 42 Most Recent (more content not included)... Normal [facility] MRI KIDNEY WO/W IVCONon 06-0 MRI KIDNEY WO/W IVCON * * *Final Report* * * DATE OF EXAM: Jan 20 2021 10:35PM [facility] [id number] - MRI KIDNEY WO/W IVCON / PROCEDURE REASON: Renal cyst * * * * Physician Interpretation * * * * EXAMINATION: MRI ABDOMEN WITHOUT AND WITH IV CONTRAST CLINICAL HISTORY: Renal mass characterization. TECHNIQUE: A renal MRI was performed on a MR system utilizing the torso phased-array coil. Pulse sequences included: axial precontrast T1 weighted in- and [id number], axial and coronal HASTE, axial DWI with [...] be communicated with the ordering provider via EXPO staff message or phone message by Imaging Support Services within 2 business days of report finalization. Algorithms for management of incidental imaging findings can be found on the [facility] Intranet Sharepoint site at: [email or web address] Managing%20Incidental%2 0Findi ngs%20at%20Imaging/Form s/AllItems.aspx [employer]: [employer] Transcribe Date/Time: Jan 21 2021 8:17A Dictated by : MALLORY AHN MD This examination was interpreted and the report reviewed and electronically signed by: MALLORY AHN MD on Jan 21 2021 8:49AM EST [id number] ACTIONABLE Invalid Interpretation Code [facility] Basic Metabolic Panlon 01-20 Anion gap [Moles/Vol] 11 mmol/L Normal 9-18 [facility] Calcium [Mass/Vol] 8.7 mg/dL Normal 8.5-10.2 [facility] Chloride [Moles/Vol] 97 mmol/L Normal 97-105 [facility] CO2 [Moles/Vol] 24 mmol/L Normal 22-30 [facility] Creatinine [Mass/Vol] 1.46 mg/dL High 0.58-0.96 [facility] eGFR- Amer. 44 Normal [facility] eGFR-All Other Races 36 . Normal [facility] Comment on above: Result Comment: eGFR [...] GFR. Glucose [Mass/Vol] 149 mg/dL High 74-99 [facility] Comment on above: Result Comment: The [place] [employer] (ADA) provides guidance for cutoff [...] Standards of Medical Care in Diabetes 2016, [place] [employer]. Diabetes Care. 2016.39(Suppl 1). Potassium [Moles/Vol] 3.9 mmol/L Normal 3.7-5.1 [facility] Sodium [Moles/Vol] 132 mmol/L Low 136-144 [facility] Urea nitrogen [Mass/Vol] 53 mg/dL High 7-21 [facility] CBCon 01-20-2021 Absolute nRBC <0.01 [facility]0.[facility] distribution width (RBC) [Ratio] 12.8 % Normal 11.5-15.0 [facility] Hematocrit (Bld) [Volume fraction] 27.7 % Low 36.0-46.0 [facility] Hemoglobin (Bld) [Mass/Vol] 8.9 g/dL Low 11.5-15.5 [facility] MCH 24.5 pG Low 26.0-34.0 [facility] MCHC (RBC) [Mass/Vol] 32.1 g/dL Normal 30.5-36.0 [facility] MCV (RBC) [Entitic vol] 76.3 fL Low 80.0-100.0 [facility] Platelet mean volume (Bld) [Entitic vol] 11.1 fL Normal 9.0-12.7 [facility] Platelets (Bld) [#/Vol] 321 10*3/uL Normal 150-400 [facility] RBC (Bld) [#/Vol] 3.63 10*6/uL Low 3.90-5.20 [facility] WBC (Bld) [#/Vol] 11.05 10*3/uL High 3.70-11.00 [facility] CONSULT PROGon 01-20-2021 CONSULT PROG HNO ID: [id number] Author: Rajendra Cruz MD Service: Nephrology Author Type: Physician Type: Consult Progress Note Filed: 01/20/2021 1:44 PM Note Text: [facility] NEPHROLOGY CONSULT PROGRESS NOTE SERVICE DATE: January [...] DATE: January 20, 2021 1:43 PM PHONE: [phone] FOR AFTER HOUR CONCERNS BETWEEN 7PM - 7AM CONTACT ON-CALL NEPHROLOGY STAFF Normal [facility] THERAPY NTon 01-20-2021 THERAPY NT HNO ID: [id number] Author: Afia Radford, PT Service: Physical Therapy Author Type: Physical Therapist Type: Therapy (PT/OT/Speech/Resp) Filed: 01/20/2021 3:32 PM Note Text: Physical Therapy Treatment SERVICE DATE: 01/20/2021 SERVICE TIME: 1330 to 1353 ROOM: [place] [address] Recommended Discharge Disposition: Home PT Recommended Discharge [...] ) Assistance Available: 24 Hour;Other: See Comment (laron is done with school at home) Entry To Home: Stairs;Without Rail Number Of Stairs Into Home: 1 Number Of Stairs To Bed/Bath: 0 Tub/Shower Type: tub shower Laundry: basement, [id number] Equipment Owned: Cane;Standard Walker Prior Functional Level: Required Assistance Assistance Required With: Transfers;Cleaning;Laun dry;Meals;Transportatio n;Shopping;Self Care Prior Functional Level Comments: Pt reports the last 6 months not being able to walk, tanner have been carrying her to the bathroom, [...] Diagnosis: Reduced mobility-other Interventions Provided: Gait Training (37201);Therapeutic Exercise (72084) Therapeutic Exercise (51631) Treatment Minutes: 8 Pt performed in supine position: AP, QS, GS x 10 B LE, pt instructed to do every hour while awake on their own. 7 days a week, HS, hip ABD, SAQ, SLR 10-20 reps/ 2-3x/day/ 7 days/week Gait Training (92640) Treatment Minutes: 15 $ Gait Training (36990) Billed Units: 1 unit Training AND education [...] 20, 2021 TIME: (more content not included)... Normal [facility] THERAPY NT HNO ID: [id number] Author: Heidy Wright OT/L Service: Occupational Therapy Author Type: Occupational Therapist Type: Therapy (PT/OT/Speech/Resp) Filed: 01/20/2021 12:15 PM Note Text: Occupational Therapy Treatment SERVICE DATE: 01/20/2021 SERVICE TIME: 1155 to 1205 ROOM: [place] [address] Recommended Discharge Disposition: Home OT Recommended Discharge [...] 0 Tub/Shower Type: tub shower Laundry: basement, txmbjxvq-ls-pjw Equipment Owned: Cane;Standard Walker Prior Functional Level: Required Assistance Assistance Required With: Transfers;Cleaning;Laun dry;Meals;Transportatio n;Shopping;Self Care Prior Functional Level Comments: Pt reports the last 6 months not being able to walk, kimrs have been carrying her to the bathroom, [...] (generalized);General symptoms and signs-other Interventions Provided: Self Fpc Management (00327) Self Fpc Management (45619) Treatment Minutes: 10 $ Self Fpc Management (10334) Billed Units: 1 unit Training AND education provided in: Benefits of in (more content not included)... Normal [facility] THERAPY NT HNO ID: [id number] Author: KRUNAL Navarro Service: Occupational Therapy Author Type: Occupational Therapist Type: Therapy (PT/OT/Speech/Resp) Filed: 01/20/2021 8:24 AM Note Text: OCCUPATIONAL THERAPY MISSED VISIT SERVICE DATE: 01/20/2021 SERVICE TIME: 0820 to 0820 ROOM: [place] [address] Attempted Treatment. Patient not seen due to Declined. Pt states, It's too early when OT attempted to work with her. Will re-attempt as schedule permits. SIGNATURE: KRUNAL Navarro PATIENT NAME: Aislinn Wheeler DATE: January 20, 2021 TIME: 8:24 AM [facility] Basic Metabolic Panlon 01-19 Anion gap [Moles/Vol] 11 mmol/L Normal 9-18 [facility] Calcium [Mass/Vol] 8.5 mg/dL Normal 8.5-10.2 [facility] Chloride [Moles/Vol] 93 mmol/L Low 97-105 [facility] CO2 [Moles/Vol] 24 mmol/L Normal 22-30 [facility] Creatinine [Mass/Vol] 1.92 mg/dL High 0.58-0.96 [facility] eGFR- Amer. 32 Normal [facility] eGFR-All Other Races 26 . Normal [facility] Comment on above: Result Comment: eGFR [...] GFR. Glucose [Mass/Vol] 268 mg/dL High 74-99 [facility] Comment on above: Result Comment: The [place] [employer] (ADA) provides guidance for cutoff [...] Standards of Medical Care in Diabetes 2016, [place] [employer]. Diabetes Care. 2016.39(Suppl 1). Potassium [Moles/Vol] 4.2 mmol/L Normal 3.7-5.1 [facility] Sodium [Moles/Vol] 128 mmol/L Low 136-144 [facility] Urea nitrogen [Mass/Vol] 77 mg/dL High 7-21 [facility] Anion gap [Moles/Vol] 11 mmol/L Normal 9-18 [facility] Calcium [Mass/Vol] 8.3 mg/dL Low 8.5-10.2 [facility] Chloride [Moles/Vol] 88 mmol/L Low 97-105 [facility] CO2 [Moles/Vol] 23 mmol/L Normal 22-30 [facility] Creatinine [Mass/Vol] 1.93 mg/dL High 0.58-0.96 [facility] eGFR- Amer. 32 Normal [facility] eGFR-All Other Races 26 . Normal [facility] Comment on above: Result Comment: eGFR [...] GFR. Glucose [Mass/Vol] 292 mg/dL High 74-99 [facility] Comment on above: Result Comment: The [place] [employer] (ADA) provides guidance for cutoff [...] Standards of Medical Care in Diabetes 2016, [place] [employer]. Diabetes Care. 2016.39(Suppl 1). Potassium [Moles/Vol] 3.8 mmol/L Normal 3.7-5.1 [facility] Sodium [Moles/Vol] 122 mmol/L Low 136-144 [facility] Urea nitrogen [Mass/Vol] 82 mg/dL High 7-21 [facility] CBCon 01-19-2021 Absolute nRBC <0.01 Normal <0.01 [facility] Erythrocyte distribution width (RBC) [Ratio] 12.8 % Normal 11.5-15.0 [facility] Hematocrit (Bld) [Volume fraction] 27.5 % Low 36.0-46.0 [facility] Hemoglobin (Bld) [Mass/Vol] 9.1 g/dL Low 11.5-15.5 [facility] MCH 24.9 pG Low 26.0-34.0 [facility] MCHC (RBC) [Mass/Vol] 33.1 g/dL Normal 30.5-36.0 [facility] MCV (RBC) [Entitic vol] 75.1 fL Low 80.0-100.0 [facility] Platelet mean volume (Bld) [Entitic vol] 11.2 fL Normal 9.0-12.7 [facility] l Platelets (Bld) [#/Vol] 297 10*3/uL Normal 150-400 [facility] RBC (Bld) [#/Vol] 3.66 10*6/uL Low 3.90-5.20 [facility] WBC (Bld) [#/Vol] 12.14 10*3/uL High 3.70-11.00 [facility] CONSULT PROGon 01-19-2021 CONSULT PROG HNO ID: [id number] Author: Rajendra Cruz MD Service: Nephrology Author Type: Physician Type: Consult Progress Note Filed: 01/19/2021 2:40 PM Note Text: [facility] NEPHROLOGY CONSULT PROGRESS NOTE SERVICE DATE: January [...] DATE: January 19, 2021 2:27 PM PHONE: [phone] FOR AFTER HOUR CONCERNS BETWEEN 7PM - 7AM CONTACT ON-CALL NEPHROLOGY STAFF [facility] 01-19-2021 NUTRITION HNO ID: [id number] Author: Michelle Louis RD Service: Nutrition Therapy [...] history;Intake records;Patient/family self-report;Weight loss;Nausea;Vomiting Estimated kilocalorie needs: [id number] Calorie Calculation Method: 30-35 kcals/kg Estimated protein [...] January 19, 2021 TIME: 10:59 AM PAGER: [phone] I have reviewed the nutritional assessment note documented by the digital marketing intern and I personally participated in the miller components. I have discussed the case and nutritional management of the patient's care. Michelle Louis MS,RD,LD,[facility] THERAPY NTon 01-19-2021 THERAPY NT HNO ID: [id number] Author: Afia Radford, PT Service: Physical Therapy Author Type: Physical Therapist Type: Therapy (PT/OT/Speech/Resp) Filed: 01/19/2021 2:57 PM Note Text: Physical Therapy Evaluation SERVICE DATE: 01/19/2021 SERVICE TIME: 4995 to 5761 ROOM: [place] [address] Recommended Discharge Disposition: Home PT Anticipated Discharge [...] 0 Tub/Shower Type: tub shower Laundry: basement, [id number] Equipment Owned: Cane;Standard Walker Prior Functional Level: [...] WFL Strength: WFL (B LE atleast 3/5) JH-HLM: 7: Walk 25 feet or more [...] Diagnosis: Reduced mobility-other Interventions Provided: Evaluation;Therapeutic Exercise (46739);Gait Training (88322) $ Evaluation-Low (97943) Billed Units: 1 unit Therapeutic Exercise (68688) Treatment Minutes: 1 Patient performed in seated position: Marching, AP/HR, hip ABD, LAQ x10 B LE- instructions written on white board for pt to complete on her own. Gait Training (66372) Treatment Minutes: 8 $ Gait Training (73441) Billed Units: 1 unit Training AND education [...] present during visit: Aleksander Syed, DELFIN Normal [facility] Basic Metabolic Panlon 01-18 Anion gap [Moles/Vol] 13 mmol/L Normal 9-18 [facility] Calcium [Mass/Vol] 8.8 mg/dL Normal 8.5-10.2 [facility] Chloride [Moles/Vol] 88 mmol/L Low 97-105 [facility] CO2 [Moles/Vol] 22 mmol/L Normal 22-30 [facility] Creatinine [Mass/Vol] 2.21 mg/dL High 0.58-0.96 [facility] eGFR- Amer. 27 Normal [facility] eGFR-All Other Races 23 . Normal [facility] Comment on above: Result Comment: eGFR [...] GFR. Glucose [Mass/Vol] 253 mg/dL High 74-99 [facility] Comment on above: Result Comment: The [place] [employer] (ADA) provides guidance for cutoff [...] Standards of Medical Care in Diabetes 2016, [place] [employer]. Diabetes Care. 2016.39(Suppl 1). Potassium [Moles/Vol] 3.7 mmol/L Normal 3.7-5.1 [facility] Sodium [Moles/Vol] 123 mmol/L Low 136-144 [facility] Urea nitrogen [Mass/Vol] 93 mg/dL High 7-21 [facility] Anion gap [Moles/Vol] 16 mmol/L Normal 9-18 [facility] Calcium [Mass/Vol] 9.0 mg/dL Normal 8.5-10.2 [facility] Chloride [Moles/Vol] 93 mmol/L Low 97-105 [facility] CO2 [Moles/Vol] 21 mmol/L Low 22-30 [facility] Creatinine [Mass/Vol] 2.59 mg/dL High 0.58-0.96 [facility] eGFR- Amer. 23 Normal [facility] eGFR-All Other Races 19 . Normal [facility] Comment on above: Result Comment: eGFR (Estimated GFR) Units of measure: mL/min/1.73 meters squared eGFR is derived from the reexpressed MDRD Study equation using the following parameters: serum creatinine, age, gender and race. The creatinine assay has been calibrated to be traceable to IDMD. An eGFR <60 mL/min/1.73m2 for >3 months is consistent with chronic kidney disease. Refer to KDOQI guidelines for clinical interpretation. In patients with unstable renal function, e.g. those with acute kidney injury, the eGFR may not accurately reflect actual GFR. Glucose [Mass/Vol] 130 mg/dL High 74-99 [facility] Comment on above: Result Comment: The [place] Diabetes [employer] (ADA) provides guidance for cutoff [...] Standards of Medical Care in Diabetes 2016, [place] [employer]. Diabetes Care. 2016.39(Suppl 1). Potassium [Moles/Vol] 4.7 mmol/L Normal 3.7-5.1 [facility] Sodium [Moles/Vol] 130 mmol/L Low 136-144 [facility] Urea nitrogen [Mass/Vol] 97 mg/dL High 7-21 [facility] CASE [id number] Author: Nicol Landin RN Service: ? 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 Stated Goals: To have reduction in pain;To [...] scheduled Advance Directive: Current Advance Directive: None Earth Burner Attempted to Assist with AD Completion: Yes [...] Walker Has the Patient Been in a Senior Living Facility in the Past 30 days?: No SOCIAL: Living Arrangements: Home Lives With: (ex-, three grandchildren who she has permanent custody ages 15, 14, 10) Financial Resources: Retired Primary Contact: Extended Emergency Contact Information Primary Emergency Contact: CHLOE SEARS Mobile Relation: Grandchild Caregiver AssessmentCaregiver is ready, willing and able to meet the patient's needs as recommended by the inter-professional team:: Yes Does the patient have an acute stroke diagnosis, or has the patient had a stroke during this admission?: No Patient's transition needs and plan for meeting these needs: Patient's ahuvcgth-cz-zoi and son live close by and come over to help often Patient's perception of need for this admission: necessary Medication Adherance I am convinced of the importance of my prescription medication: 0 - Agree Completely I worry that my prescription medication will do more harm than good to me : 0 - Disagree Completely I feel financially burdened by my rzx-lx-hkdbig expenses for my prescription medication:: 0 - Disagree Completely Risk Score: 0 Patient is categorized as: Low risk < 2 Are you interested in bedside delivery of your medications? Yes Is Patient Psychosocially Complex?: Yes, refer to Social Work ASSESSMENT AND PLAN: Medical Needs: Medical Needs: Two or more chronic diseases Psychosocial Needs: Psychosocial Needs: None FREEDOM OF CHOICE EXPLAINED: [place] of Choice Given: No Reason Not Given: [...] and hospitalized about 1 month ago in [place] but no resolution of her symptoms. She has a walker at home but has been falling so her family will carry her around to get her out of bed. Introduced role of CM and Transitional Care Management Team. Social Work to follow as well. Anticipate patient will need PT/OT assessment, and Home OT/PT. SIGNATURE: Nicol Landin RN PATIENT NAME: Aislinn Wheeler DATE: January 18, 2021 TIME: 10:51 AM PAGER/CONTACT #: [phone] Normal [facility] CBCon 01-18-2021 Absolute nRBC <0.01 Normal <0.01 [facility] Erythrocyte distribution width (RBC) [Ratio] 13.0 % Normal 11.5-15.0 [facility] Hematocrit (Bld) [Volume fraction] 31.2 % Low 36.0-46.0 [facility] Hemoglobin (Bld) [Mass/Vol] 9.9 g/dL Low 11.5-15.5 [facility] MCH 24.4 pG Low 26.0-34.0 [facility] MCHC (RBC) [Mass/Vol] 31.7 g/dL Normal 30.5-36.0 [facility] MCV (RBC) [Entitic vol] 77.0 fL Low 80.0-100.0 [facility] Platelet mean volume (Bld) [Entitic vol] 10.8 fL Normal 9.0-12.7 [facility] l Platelets (Bld) [#/Vol] 310 10*3/uL Normal 150-400 [facility] RBC (Bld) [#/Vol] 4.05 10*6/uL Normal 3.90-5.20 [facility] WBC (Bld) [#/Vol] 17.03 10*3/uL High 3.70-11.00 [facility] CONSULTon 01-18-2021 CONSULT HNO ID: [id number] Author: Annie Trinidad DO Service: Hypertension AND [...] Noted a no-show appointment to urology at [facility]. She also reports that she has had [...] for n (more content not included)... Normal [facility] CONSULT HNO ID: [id number] Author: Taurus Ballard MD Service: Urology Author Type: Physician Type: Consults Filed: 01/18/2021 8:27 AM Note Text: [facility] UROLOGY CONSULT NOTE [...] the pa (more content not included)... Normal [facility] Creatinine,Urine,Ranon 01-18 Creatinine,Urine,Ran 33.5 mg/dL Normal 20-300 [facility] Comment on above: Performed By: #### U SAUNDRA, UOSM, UCRR ####[facility] [address] [place], [place] [phone] Magnesiumon 01-18-2021 Magnesium [Mass/Vol] 1.9 mg/dL Normal 1.7-2.3 [facility] NURSING PROGon 01-18-2021 NURSING PROG HNO ID: [id number] Author: Barbara Spicer RN Service: ? Author Type: Registered Nurse Type: Nursing Progress Note Filed: 01/18/2021 10:28 AM Note Text: Nursing Progress Note Patient Name: Aislinn Wheeler Patient Location: / Daily Note:pt report given to pete LE. Pt VSS. Pt belongings packed. This note was completed by: Barbara Spicer Normal [facility] Osmolalityon 01-18-2021 Osmolality [Osmolality] 298 mosm/kg Normal 275-300 [facility] Comment on above: Performed By: #### O SM ####[place] [id number] [place], [place] [phone] Osmolality, Urineon 01-19-20 21 Osmolality, Urine 273 mOsm/kg Normal 50-1200 [facility] Comment on above: Performed By: #### U SAUNDRA, UOSM, UCRR ####[place] [id number] [place], [place] [phone] Sepsis Lactateon 01-18-2021 Sepsis Lactate 0.9 mmol/L Normal <2.1 [facility] Sodium,Urine,Randomon 2020 Sodium (U) [Moles/Vol] 32 mmol/L Normal 14-216 [facility] Comment on above: Performed By: #### U SAUNDRA, UOSM, UCRR ####[place] [id number] [place], [place] [phone] THERAPY NTon 01-18-2021 THERAPY NT HNO ID: [id number] Author: Wendy Montes De Oca OT/Broderick Service: Occupational Therapy Author Type: Occupational Therapist Type: Therapy (PT/OT/Speech/Resp) Filed: 01/18/2021 1:10 PM Note Text: Occupational Therapy Evaluation SERVICE DATE: 01/18/2021 SERVICE TIME: 0854 to 0915 ROOM: [place] [address] Recommended Discharge Disposition: Home OT Recommended Discharge [...] 0 Tub/Shower Type: tub shower Laundry: basement, jcusgpps-lw-[id number] Equipment Owned: Cane;Standard Walker CURRENT FUNCTIONAL STATUS: [...] and signs-other Interventions Provided: Evaluation $ Evaluation-Moderate (94342) Billed Units: 1 unit Training and education [...] DATE: January 18, 2021 TIME: 1:06 PM [facility] Urine Cultureon 01-18-2021 Bacteria identified Cx Nom (U) Sp. Request/Comment: - Specimen received in preservative Culture Result - No growth (<1,000 CFU/ml) [facility] Comment on above: Performed By: #### U RCUL ####[place] [id number] [place], [place] [phone] Blood Cultureon 01-17-2021 Bacteria identified Cx Nom (Bld) Culture Result - No growth 5 days [facility] Comment on above: Performed By: #### B LCUL ####[facility] [place], [place] [phone] C-Reactive Proteinon 021 C-Reactive Protein 32.4 mg/dL High <0.9 [facility] Comment on above: Performed By: #### W SR ####[facility] [address] [place], [place] [phone] CBC and Differentialon 01-17 Abs Baso <0.03 Normal <0.11 [facility] Abs Eosin <0.03 Normal <0.46 [facility] Abs Callahan 0.73 k/uL Normal <0.87 [facility] Abs Neut 14.70 k/uL High 1.45-7.50 [facility] Absolute nRBC <0.01 [facility] WBC (Bld) 0.1 % Normal [facility] DTYPE Auto Diff Normal [facility] Eosinophils/100 WBC (Bld) 0.0 % Normal [facility] Erythrocyte distribution width (RBC) [Ratio] 13.1 % Normal 11.5-15.0 [facility] Hematocrit (Bld) [Volume fraction] 35.1 % Low 36.0-46.0 [facility] Hemoglobin (Bld) [Mass/Vol] 11.3 g/dL Low 11.5-15.5 [facility] Lymphocytes (Bld) [#/Vol] 1.88 10*3/uL Normal 1.00-4.00 [facility] Lymphocytes/100 WBC (Bld) 10.8 % Normal [facility] MCH 24.2 pG Low 26.0-34.0 [facility] MCHC (RBC) [Mass/Vol] 32.2 g/dL Normal 30.5-36.0 [facility] MCV (RBC) [Entitic vol] 75.2 fL Low 80.0-100.0 [facility] Monocytes/100 WBC (Bld) 4.2 % Normal [facility] Neutrophils/100 WBC (Bld) 84.9 % Normal [facility] NRBCs 0.0 /100 WBC Normal 0 [facility] l Platelet mean volume (Bld) [Entitic vol] 11.4 fL Normal 9.0-12.7 [facility] l Platelets (Bld) [#/Vol] 345 10*3/uL Normal 150-400 [facility] RBC (Bld) [#/Vol] 4.67 10*6/uL Normal 3.90-5.20 [facility] WBC (Bld) [#/Vol] 17.33 10*3/uL High 3.70-11.[address] [facility] [address] ABD/PEL WO IVCONon 2020 CT ABD/PEL WO IVCON * * *Final Report* * * DATE OF EXAM: Jan 17 2021 8:05PM [facility] 0531 - CT ABD/PEL WO IVCON / PROCEDURE REASON: Mass or lump, abdomen pelvis * * * * Physician Interpretation * * * * CT OF CHEST, ABDOMEN AND PELVIS WITHOUT CONTRAST CLINICAL HISTORY: Aspiration (accession [id number]), Mass or lump, abdomen pelvis (accession [id number]) Concern for possible source of infection vs [...] report for details. Pelvic bones are intact. Blanket Cutting Machine Operator (topogram) images: Unremarkable. IMPRESSION: Left upper lobe [...] be communicated with the ordering provider via EXPO staff message or phone message by Imaging Support Services within 2 business days of report finalization. ACTIONABLE RESULT: FOLLOW-UP Acuity: Actionable Findings: Kidneys/Ureters/Bladder /Adrenal Routing Code: GU_1 Recommendation: MRI KIDNEY WO/W IVCON Time Frame: non-urgent, but prompt follow-up. COMMUNICATION: Results will be communicated with the ordering provider via EXPO staff message or phone message by Imaging Support Services within 2 business days of report finalization. Algorithms for management of incidental imaging findings can be found on the [facility] Intranet Sharepoint site at: [email or web address] [email or web address]/ Managing%20Incidental%2 0Findi ngs%20at%20Imaging/Form s/AllItems.aspx [employer]: [employer]ILLE Transcribe Date/Time: Jan 17 2021 8:20P Dictated by : PADILLA JIM MD This examination was interpreted and the report reviewed and electronically signed by: PADILLA JIM MD on Jan 17 2021 8:43PM EST [id number] ACTIONABLE Invalid Interpretation Code [facility] CT BRAIN WO IVCONon 01-18-[address] BRAIN WO IVCON * * *Final Report* * * DATE OF EXAM: Jan 17 2021 4:26PM [facility] 0504 - CT BRAIN WO IVCON / [...] base and imaged soft tissues are unremarkable. Blanket Cutting Machine Operator (topogram) images: No additional findings. IMPRESSION: No acute intracranial hemorrhage or mass effect is seen [employer]: [employer] Transcribe Date/Time: Jan 17 2021 4:47P Dictated by : JOHN THAKKAR MD This examination was interpreted and the report reviewed and electronically signed by: JOHN THAKKAR MD on Jan 17 2021 4:48PM EST [id number] Normal [facility] CT CERVICAL SPINE WO IVCONon 01-17-2021 CT CERVICAL SPINE WO IVCON * * *Final Report* * * DATE OF EXAM: Jan 17 2021 4:26PM [facility] 0505 - CT CERVICAL SPINE WO IVCON [...] Counting reference: Craniocervical junction. Anatomic Variants: None. Blanket Cutting Machine Operator (topogram) images: No additional findings. Alignment: Straightening [...] vertebrae with counting from the craniocervical junction. [employer]: [employer] Transcribe Date/Time: Jan 17 2021 4:49P Dictated by : JOHN THAKKAR MD This examination was interpreted and the report reviewed and electronically signed by: JOHN THAKKAR MD on Jan 17 2021 4:53PM EST [id number] [facility] CT CHEST WO IVCONon 01-18-20 CT CHEST WO IVCON * * *Final Report* * * DATE OF EXAM: Jan 17 2021 8:05PM [facility] 0541 - CT CHEST WO IVCON / PROCEDURE REASON: Aspiration * * * * Physician Interpretation * * * * CT OF CHEST, ABDOMEN AND PELVIS WITHOUT CONTRAST CLINICAL HISTORY: Aspiration (accession [id number]), Mass or lump, abdomen pelvis (accession [id number]) Concern for possible source of infection vs [...] report for details. Pelvic bones are intact. Blanket Cutting Machine Operator (topogram) images: Unremarkable. IMPRESSION: Left upper lobe [...] be communicated with the ordering provider via EXPO staff message or phone message by Imaging Support Services within 2 business days of report finalization. ACTIONABLE RESULT: FOLLOW-UP Acuity: Actionable Findings: Kidneys/Ureters/Bladder /Adrenal Routing Code: GU_1 Recommendation: MRI KIDNEY WO/W IVCON Time Frame: non-urgent, but prompt follow-up. COMMUNICATION: Results will be communicated with the ordering provider via EXPO staff message or phone message by Imaging Support Services within 2 business days of report finalization. Algorithms for management of incidental imaging findings can be found on the [facility] Intranet Sharepoint site at: [email or web address] [email or web address]/ Managing%20Incidental%2 0Findi ngs%20at%20Imaging/Form s/AllItems.aspx [employer]: [employer] Transcribe Date/Time: Jan 17 2021 8:20P Dictated by : PADILLA JIM MD This examination was interpreted and the report reviewed and electronically signed by: PADILLA JIM MD on Jan 17 2021 8:43PM EST [id number] ACTIONABLE Invalid Interpretation Code [facility] CT LUMBAR SPINE WO IVCONon 0 01-17-2021 CT LUMBAR SPINE WO IVCON * * *Final Report* * * * * * SEE BOTTOM OF REPORT FOR ADDENDED TEXT * * * DATE OF EXAM: Jan 17 2021 5:34PM [facility] 0508 - CT LUMBAR SPINE WO IVCON [...] are 5 lumbar-type vertebrae. Anatomic variant: None. Blanket Cutting Machine Operator (topogram) images: No additional findings. Alignment: Alignment [...] on 01/17/2021 6:08 PM via verbal communication. [employer]: [employer] Transcribe Date/Time: Jan 17 2021 6:05P Dictated by : JOHN THAKKAR MD This examination was interpreted and the report reviewed and electronically signed by: JOHN THAKKAR MD on Jan 17 2021 6:01PM EST This document has been addended by: JOHN THAKKAR MD on Jan 17 2021 6:08PM EST [id number] Normal [facility] CT THORACIC SPINE WO IVCONon 01-17-2021 CT THORACIC SPINE WO IVCON * * *Final Report* * * DATE OF EXAM: Jan 17 2021 5:34PM [facility] 0514 - CT THORACIC SPINE WO IVCON [...] the purposes of this report, anatomic variants: Blanket Cutting Machine Operator (topogram) images: No additional findings. Alignment: Alignment [...] and assume there are 5 lumbar-type vertebrae. [employer]: [employer] Transcribe Date/Time: Jan 17 2021 6:03P Dictated by : JOHN THAKKAR MD This examination was interpreted and the report reviewed and electronically signed by: JOHN THAKKAR MD on Jan 17 2021 6:13PM EST [id number] [facility] Comp Metabolic Panelon 01-17 Albumin [Mass/Vol] 3.0 g/dL Low 3.9-4.9 [facility] ALP [Catalytic activity/Vol] 162 U/L High 34-123 [facility] ALT [Catalytic activity/Vol] 7 U/L Normal 7-38 [facility] Anion gap [Moles/Vol] 17 mmol/L Normal 9-18 [facility] AST [Catalytic activity/Vol] 15 U/L Normal 13-35 [facility] Bilirubin [Mass/Vol] 0.4 mg/dL Normal 0.2-1.3 [facility] Calcium [Mass/Vol] 9.6 mg/dL Normal 8.5-10.2 [facility] Chloride [Moles/Vol] 83 mmol/L Low 97-105 [facility] CO2 [Moles/Vol] 20 mmol/L Low 22-30 [facility] Creatinine [Mass/Vol] 2.93 mg/dL High 0.58-0.96 [facility] eGFR- Amer. 20 Normal [facility] eGFR-All Other Races 16 . Normal [facility] Comment on above: Result Comment: eGFR [...] GFR. Glucose [Mass/Vol] 216 mg/dL High 74-99 [facility] Comment on above: Result Comment: The [place] [employer] (ADA) provides guidance for cutoff [...] Standards of Medical Care in Diabetes 2016, [place] [employer]. Diabetes Care. 2016.39(Suppl 1). Potassium [Moles/Vol] 5.5 mmol/L High 3.7-5.1 [facility] Protein [Mass/Vol] 9.5 g/dL High 6.3-8.0 [facility] Sodium [Moles/Vol] 120 mmol/L Low 136-144 [facility] Comment on above: Result Comment: Resu lt checked and verified Urea nitrogen [Mass/Vol] 104 mg/dL High 7-21 [facility] ED NOTEon 01-17-2021 ED NOTE HNO ID: [id number] Author: Prerna Luke RN Service: ? Author Type: Registered Nurse Type: ED Notes Filed: 01/17/2021 9:32 PM Note Text: Report called to 4E RN. Patient stable for transport at this time. [facility] ED NOTE HNO ID: [id number] Author: Prerna Luke RN Service: ? Author Type: Registered Nurse Type: ED Notes Filed: 01/17/2021 9:20 PM Note Text: 16Fr chaves inserted with 500 cc urine immediately drained. Patient tolerated well. [facility] ED NOTE HNO ID: [id number] Author: Prerna Luke RN Service: ? Author Type: Registered Nurse Type: ED Notes Filed: 01/17/2021 7:22 PM Note Text: BC obtained by lab. ABX infusing at this time. [facility] ED NOTE HNO ID: [id number] Author: Prerna Luke RN Service: ? Author Type: Registered Nurse Type: ED Notes Filed: 01/17/2021 7:06 PM Note Text: This RN and 2 medics unable to straight stick patient for blood or draw from existing IVs. Lab will draw one set of BC; GIANNI Tucker notified that only one set will be obtained. [facility] ED NOTE HNO ID: [id number] Author: Prerna Luke RN Service: ? Author Type: Registered Nurse Type: ED Notes Filed: 01/17/2021 4:25 PM Note Text: XR at bedside [facility] ED NOTE HNO ID: [id number] Author: Prerna Luke RN Service: ? Author Type: Registered Nurse Type: ED Notes Filed: 01/17/2021 4:03 PM Note Text: covid swab obtained and walked to lab. [facility] ED NOTE HNO ID: [id number] Author: Bharat Patterson RN Service: ? Author [...] time Reports oral intake has been poor Normal [facility] ED PROV NOTEon 01-17-2021 ED PROV NOTE HNO ID: [id number] Author: Garrett Simon PA-C Service: Emergency Medicine Author Type: Physician Centrifuge Separator Operator Type: ED Provider Notes Filed: 01/17/2021 9:27 PM Note Text: Attestation signed by Cory Crawley III, MD at 01/18/2021 12:06 PM Attending Note I have personally performed a face to face assessment of the patient and have reviewed the PA/INSTRUMENTAL MUSICIAN note. My miller findings include: This is [...] significant midlin (more content not included)... Normal [facility] HISTORY PHYSICALon HISTORY PHYSICAL HNO ID: [id number] Author: Trevor Porras MD Service: Hospital Medicine Author Type: Physician Type: HANDP Filed: 01/17/2021 10:12 PM Note Text: DEPARTMENT OF HOSPITAL MEDICINE HISTORY AND PHYSICAL EXAM SERVICE DATE: 01/17/2021 Code Status: Not on file SERVICE TIME: 10:00 PM Primary Care Physician: No Pcp NIGHT AND WEEKEND COVERAGE: ONARGA COVERAGE: Days: [phone], please contact via [employer] Mobile Nights: [phone], please page CC Hospitalist Night coverage pager [phone] Subjective CHIEF COMPLAINT: Generalized weakness, falls HPI: [...] Most recen (more content not included)... Normal [facility] Intermed Rapid COVIDon 01-17 SARS-CoV-2 (COVID-19) RNA ADRIEL+probe Ql (Unsp spec) UPPER RESPIRATORY TRACT SWAB Normal [facility] Comment on above: Performed By: #### I TCOVD ####[id number] [place], [place] [phone] SARS-CoV-2 (COVID-19) RNA ADRIEL+probe Ql (Unsp spec) Negative for COVID19 (SARS CoV2) by RT-PCR or equivalent method. Normal Negative for COVID19 (SARS CoV2) by RT-PCR or equivalent method. [facility] Comment on above: Result Comment: This test was developed and its performance characteristics determined by [facility]'s [facility] [place]. This test has been authorized by FDA under an Emergency Use Authorization (EUA). This test has been validated in accordance with the FDA's Guidance Document Policy for Diagnostics Testing in Laboratories Certified to Perform High Complexity Testing under CLIA prior to Emergency use Authorization for Coronavirus Disease 2019 during the Public Health Emergency issued on October 19, 2019. Test performed by [facility], [facility] [place], [address] [place], [place] [address]. Performed By: #### I TCOVD ####[id number] [place], [place] [phone] Magnesiumon 01-17-2021 Magnesium [Mass/Vol] 2.0 mg/dL Normal 1.7-2.3 [facility] NT Pro BNPon 01-17-2021 PRO B Natr Peptide 394 pg/mL High <125 [facility] Sed Rate Westergrenon 2020 Sed Rate Westergren 124 mm/hr High 0-20 [facility] Comment on above: Performed By: #### W SR ####[facility] [place], [place] [phone] TSHon 05-30-2021 TSH Qn 0.615 m[IU]/L Normal 0.270-4.200 [facility] Troponin Ton 01-17-2021 Troponin T.cardiac [Mass/Vol] 0.023 ug/L Normal 0.000-0.029 [facility] Urinalysis with Microscopico n 01-17-2021 Bacteria Present Critically abnormal 0 [facility] Bilirubin, Urine Negative Normal Negative [facility] pital Cast SEE COMMENT Normal 0 [facility] Comment on above: Result Comment: 0 Clarity (U) Turbid Critically abnormal Clear [facility] Color (U) Yellow Normal Yellow [facility] Glucose Ql (U) Negative Normal Negative [facility] Hemoglobin/Blood,Ur 2+ Critically abnormal Negative [facility] Ketones Ql (U) Negative Normal Negative [facility] Leukest 3+ Critically abnormal Negative [facility] Nitrite Ql (U) Positive Critically abnormal Negative [facility] pH (U) 8.5 [pH] High 5.0-8.0 [facility] Protein, Urine 2+ Critically abnormal Negative [facility] RBC 3-5 Critically abnormal 0-3 [facility] Specific Pyatt, Ur 1.013 Normal 1.005-1.030 [facility] Urobilinogen Qn (U) 0.2 {Madeleine'U}/dL Normal 0.2-1.0 [facility] WBC (U) [#/Vol] /uL Critically abnormal 0-5 [facility] Urine Cultureon 01-17-2021 Bacteria identified Cx [...] F Ertapenem SUSCEPTIBLE <=0.5 F Critically abnormal [facility] Comment on above: Performed By: #### U RCUL ####[facility] [address] [place], [place] [phone] XR CHEST 1V FRONTAL PORTon 0 01-17-2021 [...] exam with no evidence of acute disease. [employer]: PSCB Transcribe Date/Time: Jan 17 2021 4:40P Dictated by : FLASH WOODS MD This examination was interpreted and the report reviewed and electronically signed by: FLASH WOODS MD on Jan 17 2021 4:41PM EST [id number] Normal [facility] Vital Signs Date Time Vital Sign Value Performing Clinician Facility 08-01-2023 15:00-0500 Body height 154.94 cm [facility] 06-08-2023 13:00-0400 Body height 154.94 cm Sara Augustine Other [employer] Other 06-08-2023 13:00-0400 Body mass index (BMI) [Ratio] 25.37 kg/m2 TamiWerdsmith Other [facility] Other 06-08-2023 13:00-0400 Body weight 60.92 kg Tondra Mapus Other [facility] Other 06-08-2023 13:00-0400 Diastolic blood pressure 66 mm[Hg] Tondra Mapus Other [facility] Other 06-08-2023 13:00-0400 Respiratory rate 18 /min Tondra Mapus Other [facility] Other 06-08-2023 13:00-0400 SaO2% (BldA) [Mass fraction] 100 % Tondra Mapus Other [facility] Other 06-08-2023 13:00-0400 Systolic blood pressure 107 mm[Hg] Tondra Mapus Other [facility] Other 05-18-2023 11:00-0400 Body height 154.94 cm Tondra Mapus Other [facility] Other 05-18-2023 11:00-0400 Body mass index (BMI) [Ratio] 24.69 kg/m2 Tondra Mapus Other [facility] Other 05-18-2023 11:00-0400 Body weight 59.29 kg Tondra Mapus Other [facility] Other 05-18-2023 11:00-0400 Diastolic blood pressure 96 mm[Hg] Tondra Mapus Other [facility] Other 05-18-2023 11:00-0400 Respiratory rate 18 /min Tondra Mapus Other [facility] Other 05-18-2023 11:00-0400 SaO2% (BldA) [Mass fraction] 97 % Sara Augustine Other [employer] [employer] Other 05-18-2023 11:00-0400 Systolic blood pressure 161 mm[Hg] Sara Dumontus Other [facility] [employer] Other 02-22-2023 08:34-0400 Blood Pressure Location Lisa Lue [facility] 02-22-2023 08:34-0400 Diastolic blood pressure 66 mm[Hg] Lisa Lue [facility] 02-22-2023 08:34-0400 Heart rate 76 /min Lisa Lue [facility] 02-22-2023 08:34-0400 Systolic blood pressure 106 mm[Hg] Lisa Lue [facility] 12-27-2022 16:00-0400 Body height 154.94 cm [employer] Other [facility] [employer] Other 12-27-2022 16:00-0400 Body mass index (BMI) [Ratio] 26.11 kg/m2 [employer] Other [facility] [employer] Other 12-27-2022 16:00-0400 Body temperature 96.5 [degF] Eli [employer] Other [facility] Other 12-27-2022 16:00-0400 Body weight 62.69 kg Eli dscout Other [facility] Other 12-27-2022 16:00-0400 Diastolic blood pressure 98 mm[Hg] Eli Sprague Other [employer] Other 12-27-2022 16:00-0400 Respiratory rate 18 /min Eli Sprague Other [employer] Other 12-27-2022 16:00-0400 SaO2% (BldA) [Mass fraction] 98 % Eli Sprague Other [employer] Other 12-27-2022 16:00-0400 Systolic blood pressure 151 mm[Hg] Eli Sprague Other [employer] [facility] [employer] Other 09-21-2022 08:42-0500 Blood Pressure Location Lisa Lue [facility] 09-21-2022 08:42-0500 Diastolic blood pressure 67 mm[Hg] Lisa Lue [facility] 09-21-2022 08:42-0500 Heart rate 74 /min Lisa Lue [facility] 09-21-2022 08:42-0500 Systolic blood pressure 103 mm[Hg] Lisa Lue [facility] Encounters Encounter Date Encounter Type Care Provider Facility Start: 10-25-2023 ambulatory HEIDY Salinas ty:ALLY[facility] Dailey Start: 10-10-2023 ambulatory HEIDY Salinas ty:[facility]co Start: 09-29-2023 End: 09-30-2023 ambulatory ZACKERY Jennifer MIRANDA [facility] Start: 09-28-2023 ambulatory Rosie Esqueda Research Coordinator [facility] Provider Adult Comment on above: [facility] IRB# [id number] Start: 09-28-2023 E-mail encounter fro m caregiver Rosie Whipple Yin Research Coordinator [facility] Start: 09-27-2023 Telephone encounter Rosie Noel tayla Research Coordinator [facility] Provider Adult Comment on above: Research F/U Start: 09-26-2023 Telephone encounter Rosie Noel tayla Research Coordinator [facility] Provider Adult Comment on above: Research F/U Start: 09-12-2023 End: 09-13-2023 ambulatory HEIDY DOMINGORY Facility:[facility] Start: 09-12-2023 End: 09-12-2023 Patient encounter procedure HEIDY DOMINGORY [facility] Start: 09-07-2023 Refill Yesenia Burnett RN [facility] Comment on above: 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 Start: 09-05-2023 End: 09-05-2023 ambulatory Tondra Mapus Other [employer] Other Start: 09-05-2023 Telephone encounter Tona Mapus [facility] Start: 08-09-2023 End: 08-10-2023 ambulatory [facility] Start: 08-09-2023 End: 08-09-2023 ambulatory [facility] Start: 08-01-2023 End: 08-01-2023 Patient encounter procedure [facility] Michael Work Phone: Start: 07-18-2023 End: 07-19-2023 ambulatory HEIDY DOMINGORY Facility:[facility] Start: 07-05-2023 End: 07-05-2023 Orders Only Taurus Ballard MD Work Phone: Urology Comment on above: Kidney cyst, acquire d (Primary Dx) Start: 07-05-2023 Telephone encounter Eli Sprague [facility] Nephrology Start: 06-28-2023 End: 06-29-2023 ambulatory Lisa Porras Facility:[facility] Start: 06-28-2023 End: 06-28-2023 Patient encounter procedure Lisa Porras [facility] Start: 06-26-2023 End: 06-26-2023 ambulatory Tondra Mapus Other [employer] Other Start: 06-26-2023 Telephone encounter Tondra Mapus [facility] Start: 06-23-2023 Telephone encounter Heidy salas RN Urology Comment on above: Surgical Followup Start: 06-22-2023 End: 06-23-2023 ambulatory TAURUS BALLARD Facility:[facility] Start: 06-19-2023 ambulatory Taurus newton MD Work Phone: Urology Comment on above: Aislinn sungcomin g procedure Start: 06-15-2023 Telephone encounter Vonnie Wilder RN Ur ology Comment on above: Pre-Op Teaching Start: 06-12-2023 End: 06-12-2023 ambulatory Tondra Mapus Other [employer] Other Start: 06-12-2023 Telephone encounter Tondra Mapus [facility] Start: 06-08-2023 End: 06-08-2023 Lab Drop off HEIDY ARNOLD [facility] Start: 06-08-2023 End: 06-08-2023 Patient encounter procedure LATOSHA OLMSTEAD [facility] Start: 06-08-2023 (PUMP/CGM) Pump / Sensor Tondra Mapus [facility] Start: 06-08-2023 End: 06-09-2023 ambulatory HEIDY E CATALINAShandong In [employer] Other Start: 06-06-2023 Encounter for other preprocedural examination TAURUS BALLARD [facility] Start: 06-06-2023 End: 06-07-2023 ambulatory TAURUS BALLARD Facility:[facility] Start: 05-22-2023 End: 05-23-2023 ambulatory Lisa M. Lue Facility:[facility] Start: 05-22-2023 End: 05-22-2023 Patient encounter procedure Lisa Porras [facility] Start: 05-18-2023 End: 05-18-2023 ambulatory Sara Augustine Other [employer] Other Start: 05-18-2023 FQ visit new patient Sara Augustine [facility] Start: 05-18-2023 Telephone encounter Taurus rees MD Work Phone: Urology Comment on above: Follow Up Start: 05-17-2023 End: 05-17-2023 ambulatory TAURUS BALLARD Facility:[facility] Start: 05-11-2023 End: 2023 ambulatory HEIDY ARNOLD Facility:[facility] Start: 05-11-2023 End: 05-11-2023 Lab Drop off HEIDY ARNOLD [facility] Start: 05-03-2023 End: 05-04-2023 ambulatory Lisa M. Lue Facility:[facility] Start: 04-18-2023 End: 04-19-2023 ambulatory HEIDY ARNOLD Facility:[facility] Start: 04-18-2023 End: 04-19-2023 ambulatory Lisa M. Lue Facility:[facility] Start: 04-18-2023 End: 04-18-2023 Lab Drop off HEIDY ARNOLD [facility] Start: 04-18-2023 End: 04-18-2023 Patient encounter procedure [facility] Por[facility] Start: 04-04-2023 End: 04-04-2023 ambulatory Brigette Wesley Other [employer] Other Start: 04-04-2023 Telephone encounter Brigette Wesley [facility] Start: 02-22-2023 End: 02-23-2023 ambulatory Lisa Porras Facility:[facility] Start: 02-22-2023 End: 02-22-2023 Patient encounter procedure [facility] Start: 01-09-2023 End: 01-09-2023 ambulatory Azyanet Bakdis Other [employer] Other Start: 01-09-2023 Telephone encounter Azyanet Bakhous [facility] Start: 01-03-2023 End: 01-04-2023 ambulatory SOUND PERSON LATOSHA AICHHOLZ Facility:[facility] Start: 12-28-2022 End: 12-29-2022 ambulatory SOUND PERSON LATOSHA AICHHOLZ Facility:[facility] Start: 12-27-2022 End: 12-27-2022 ambulatory Aziz Bakhous Other [facility] Other Start: 12-27-2022 Office outpatient ne w 30 minutes Aziz Bakhous [facility] Start: 12-15-2022 End: 12-16-2022 ambulatory SOUND PERSON LATOSHA AICHHOLZ Facility:[facility] Start: 12-14-2022 End: 12-15-2022 ambulatory RAMNO HUNTLEY Facility:[facility] Start: 10-27-2022 End: 10-28-2022 ambulatory SOUND PERSON LATOSHA AICHHOLZ Facility:[facility] Start: 10-26-2022 ambulatory Lisa Porras Facility:[facility] Start: 10-24-2022 End: 10-25-2022 ambulatory SOUND PERSON LATOSHA AICHHOLZ Facility:[facility] Start: 10-12-2022 End: 10-13-2022 ambulatory SOUND PERSON LATOSHA AICHHOLZ Facility:[facility] Start: 10-05-2022 End: 10-06-2022 ambulatory SOUND PERSON LATOSHA AICHHOLZ Facility:[facility] Start: 09-29-2022 End: 09-30-2022 ambulatory SOUND PERSON LATOSHA AICHHOLZ Facility:[facility] Start: 09-21-2022 End: 09-22-2022 ambulatory RAMON D YUKO Facility:[facility] Start: 09-21-2022 End: 09-21-2022 Patient encounter procedure Lisa Porras [facility] Start: 09-15-2022 End: 09-16-2022 ambulatory SOUND PERSON LATOSHA AICHHOLZ Facility:[facility] Start: 09-13-2022 End: 09-13-2022 Patient encounter procedure HEIDY ARNOLD [facility] Start: 09-08-2022 End: 09-09-2022 ambulatory SOUND PERSON LATOSHA AICHHOLZ Facility:[facility] Start: 09-02-2022 End: 09-03-2022 ambulatory RAMON D YUKO Facility:[facility] Start: 08-26-2022 End: 08-27-2022 ambulatory RAMON D YUKO Facility:[facility] Start: 08-09-2022 End: 08-10-2022 ambulatory PETER D WILLYANDER Facility:[facility] Start: 08-05-2022 End: 08-06-2022 ambulatory PETER D HIGHLANDER Facility:[facility] Start: 08-04-2022 End: 08-05-2022 ambulatory PETER D HIGHLANDER Facility:[facility] Start: 08-03-2022 End: 08-04-2022 ambulatory SOUND PERSON LATOSHA AICHHOLZ Facility:[facility] Start: 08-02-2022 End: 08-03-2022 ambulatory SOUND PERSON LATOSHA AICHHOLZ Facility:[facility] Start: 08-01-2022 End: 08-02-2022 ambulatory SOUND PERSON LATOSHA AICHHOLZ Facility:[facility] Start: 07-19-2022 End: 07-20-2022 ambulatory KIARA OLMSTEAD Facility:[facility] Start: 07-08-2022 End: 07-09-2022 ambulatory KIARA OLMSTEAD Facility:[facility] Start: 07-06-2022 End: 07-07-2022 ambulatory KIARA OLMSTEAD Facility:[facility] Start: 07-05-2022 End: 07-06-2022 ambulatory RAMON Tillman [facility] Facility:[facility] Start: 06-28-2022 End: 06-29-2022 ambulatory RAMON Tillman [facility] Facility:[facility] Start: 06-24-2022 End: 06-25-2022 ambulatory [facility] Primo [facility] Facility:[facility] Start: 06-11-2022 End: 06-16-2022 Evaluation and management of inpatient DR NENO VIEIRA . Facility:[facility] Start: 06-02-2022 End: 06-02-[address] NELL PALMA Facility:[facility] Start: 06-02-2022 End: 06-03-2022 ambulatory RAMON Tillman [facility] Facility:[facility] Start: 2022 End: 2022 ambulatory RAQUEL SABA . Facility:[facility] Start: 01-27-2021 End: 01-27-2021 Telephone encounter Barb Silva MD Work Phone: Nephrology Comment on above: Appointment Procedures Date Procedure Procedure Detail Performing Clinician Start: 06-22-2023 Laparoscopic partial nephrectomy of left kidney HEIDY ARNOLD Start: 06-06-2023 Antibody screen TAURUS BALLARD Comment on above: Order Comment: Speci men Type: BLOOD SPECIMEN Ordering Facility: [facility] Address: [address] [place] [address] Performed By: #### T [id number] #### [facility] [place] [id number] [address] [facility] [place] [address] [place] Start: 05-22-2023 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 Ricardo Rocha Start: 06-13-2022 Detachment at Left F oot, Partial 1st Ray, Open Approach KIARA OLMSTEAD Start: 06-13-2022 Microscopic examinat ion of blood, culture KIARA OLMSTEAD Comment on above: Performed By: #### B [id number] ####[facility] [id number] [place] [id number]. Ricardo Rocha Start: 06-11-2022 Detachment at Left [...] Treatment Date Care Activity Detail Author Start: 09-03-2024 Complete blood count Hemoglobin/Chalino tocrit [facility] Start: 09-03-2024 Creatinine measurement Serum Creatin ine [facility] Start: 08-09-2024 Adult BMI Screening Adult BMI Screen ing [facility] Start: 08-09-2024 Tobacco Screening Tobacco Screening [facility] Start: 06-23-2024 [facility] Start: 06-23-2024 Serum Creatinine Serum Creatinine Cl [facility] Start: 06-06-2024 Hemoglobin/Hematocrit Hemoglobin/Hem [facility] Start: 06-06-2024 Serum Creatinine Serum Creatinine Cl [facility] Start: 04-04-2024 Hepatitis B screening Urine Albumin:Creatinine Ratio [facility] Start: 01-22-2024 DIABETES SCREEN DIABETES SCREEN [facility] Start: 10-05-2023 End: 01-04-2024 Basic metabolic 2000 panel - Serum or Plasma BASIC METABOLIC PNL Lab Routine Kidney cyst, acquired Expected: 10/05/2023 (Approximate), Expires: 01/04/2024 [facility] Work Phone: Comment on above: Expected: 10/05/2023 (Approximate), Expires: 01/04/2024 Start: 10-05-2023 End: 08-03-2024 US KIDNEY/BLADDER US KIDNEY/BLADDER Radiology Routine Kidney cyst, acquired Expected: 10/05/2023 (Approximate), Expires: 08/03/2024 [facility] Work Phone: Comment on above: Expected: 10/05/2023 (Approximate), Expires: 08/03/2024 Start: 09-06-2023 Hemoglobin A1c measurement HbA1C [facility] Start: 09-06-2023 Hemoglobin A1c/Hemoglobin.total in Blood HbA1C [facility] Start: 08-21-2023 Advance Directive Discussion Advance Directive Discussion [facility] Start: 08-21-2023 Depression Assessment Depression Ass essment [facility] Start: 2023 Advance Directive Discussion Advance Directive Discussion [facility] Start: 2023 Bone Density Screening Bone Density Screening [facility] Start: 2023 Fall Risk Screening Fall Risk Screen [facility] Start: 2023 Screening for osteoporosis Bone Density Screening [facility] Start: 04-21-2023 Covid-19 Vaccine ( season) Covid-19 Vaccine ( season) [facility] Start: 04-21-2023 Covid-19 Vaccine ( season) Covid-19 Vaccine ( season) [facility] Start: 04-21-2023 Influenza vaccination C [facility] Start: 08-21-2022 Depression Assessment Depression Ass essment [facility] Start: 04-21-2021 Influenza vaccination INFLUENZ A (Season Ended) [facility] Start: 2018 Hepatitis B Vaccine (1 of 3 - Risk 3-dose series) Hepatitis B Vaccine (1 of 3 - Risk 3-dose series) [facility] Start: 2018 RSV Vaccine (1 - 1-d ose 60+ series) RSV Vaccine (1 - 1-dose 60+ series) [facility] Start: 2008 Administration of varicella zoster vaccine Zoster (Shingles) Vaccine (1 of 2) [facility] Start: 2008 Screening for malign ant neoplasm of colon [facility] Start: 2008 SHINGRIX VACCINE (1 of 2) SHINGRIX VACCINE (1 of 2) [facility] Start: 2003 Cologuard (FIT-DNA) Cologuard (FIT-D NA) [facility] Start: 2003 Colonoscopy Colonoscopy [facility] Start: 2003 Colorectal Cancer Screening Colorectal Cancer Screening [facility] Start: [address] Colonography [facility] Start: 2003 Fecal Occult Blood Fecal Occult Bloo d [facility] Start: 2003 LIPID SCREEN LIPID SCREEN [facility] Start: 2003 Screening for malign ant neoplasm of colon [facility] Start: 2003 Sigmoidoscopy Sigmoidoscopy [facility] Start: 1998 Mammography [facility] Start: 1998 Screening for malign ant neoplasm of breast Mammogram Screening [facility] Start: 1988 HPV TESTING HPV TESTING [facility] Start: 1979 PAP TESTING PAP TESTING [facility] Start: 1977 DTaP,Tdap and Td Vaccines (1 - Tdap) DTaP,Tdap and Td Vaccines (1 - Tdap) [facility] Start: 1977 Urine microalbumin profile [facility] Start: 1976 Annual PCP [place] Disease Visit Annual PCP Team Chronic Disease Visit [facility] Start: 1976 BP Controlled (<130/80) BP Controlle d (<130/80) [facility] Start: 1976 Diabetic foot examination Diabetic Foot Exam [facility] Start: 1976 Hepatitis B surface antibody level LDL Cholesterol [facility] Start: 1976 HEPATITIS C SCREENING HEPATITIS C [facility] Start: 1976 Hepatitis C screening Hepatitis C Sc reening [facility] Start: 1976 HIV SCREENING HIV SCREENING [facility] Start: 1976 HIV screening HIV Screening [facility] Start: 1976 Spirometry Spirometry [facility] Start: 1970 Adult depression screening assessment DEPRESSION SCREENING [facility] Start: 1970 COVID-19 VACCINE (1) COVID-19 VACCIN E (1) [facility] Start: 1968 3 comp foot exam completed Diabetic Foot Exam [facility] Start: 1968 Diabetic foot examination Diabetic Foot Exam [facility] Start: 1968 Glaucoma screening Dilated Retinal E xam [facility] Start: 1968 Hepatitis B screening Urine Albumin:Creatinine Ratio [facility] Start: 1968 Hepatitis C antibody , confirmatory test Dilated Retinal Exam [facility] Start: 1964 Pneumococcal Vaccine : 65+ (1 - PCV) Pneumococcal Vaccine: 65+ (1 - PCV) [facility] Start: 1964 Pneumococcal Vaccine : 65+ (1 of 2 - PCV) Pneumococcal Vaccine: 65+ (1 of 2 - PCV) [facility] Start: 1958 Glaucoma screening Diabetic Op hthalmology Exam [facility] Start: 1958 Urine screening for protein Urine Microalbumin [facility] Njx anes stellate ganglion crv sympathetic INJECTION BLOCK NERVE STELLATE GANGLION NECK Complex regional pain syndrome type 1 of right upper extremity [place] [facility] c Immunizations Immunization Date Immunization Notes Care Provider Lukas pacheco 04-02-2021 SARS-CoV-2 (COVID-19 ) mRNA-1273 vaccine HEIDY ARNOLD [facility] 12-07-2020 SARS-CoV-2 (COVID-19 ) mRNA-1273 vaccine HEIDY ARNOLD [facility] 06-03-2016 influenza virus vaccine, unspecified formulation HEIDY ARNOLD [facility] 06-03-2016 influenza, seasonal, injectable, preservative free Rosie Taylor Coordinator [facility] Payers Date Payer Category Payer Self-pay 2022 Medicare [id number] 2022 Medicare [id number] 2006 Medicare MEDICARE MEDICAR E A [id number] 2006-Present [place] Medicare [id number] 2003 Unknown [id number] 1959 Medicare [id number] 2.16.840.1.393930.19 1961 Medicare [id number] 1961 Unknown [id number] 1961 Unknown [id number] 1958 Unknown [id number] 2.16.840.1.576830.3.579.2.593 1958 Unknown [id number] 2.16.840.1.643192.3.579.2.593 1958 Unknown [id number] 2.16.840.1.499682.3.579.2.593 1958 Unknown [id number] 2.16.840.1.613818.3.579.2.593 1958 Unknown [id number] 2.16.840.1.126813.3.579.2.593 1958 Unknown [id number] 2.16.840.1.534977.3.579.2.593 1958 Unknown [id number] 2.16.840.1.712385.3.579.2.593 1958 Unknown [id number] 2.16.840.1.064040.3.579.2.593 1958 Unknown [id number] 2.16.840.1.337709.3.579.2.593 1958 Unknown [id number] 2.16.840.1.795061.3.579.2.593 1958 Unknown [id number] 2.16.840.1.967153.3.579.2.593 1958 Unknown [id number] 2.16.840.1.591227.3.579.2.593 1958 Unknown [id number] 2.16.840.1.993552.3.579.2.593 1958 Unknown [id number] 2.16.840.1.015071.3.579.2.593 1958 Unknown [id number] 2.16.840.1.670573.3.579.2.593 1958 Unknown [id number] 2.16.840.1.165357.3.579.2.593 1958 Unknown [id number] 2.16.840.1.730640.3.579.2.593 1958 Unknown [id number] 2.16.840.1.178430.3.579.2.593 1958 Unknown [id number] 2.16.840.1.568320.3.579.2.593 1958 Unknown [id number] 2.16.840.1.377981.3.579.2.593 1958 Unknown [id number] 2.16.840.1.705182.3.579.2.593 1958 Unknown [id number] 2.16.840.1.973470.3.579.2.593 1958 Unknown [id number] 2.16.840.1.317244.3.579.2.593 1958 Unknown [id number] 2.16.840.1.430904.3.579.2.593 1958 Unknown [id number] 2.16.840.1.485048.3.579.2.593 1958 Unknown [id number] 2.16.840.1.571614.3.579.2.593 1958 Unknown [id number] 2.16.840.1.468984.3.579.2.593 1958 Unknown [id number] 2.16.840.1.834136.3.579.2.593 1958 Unknown [id number] 2.16.840.1.798812.3.579.2.593 1958 Unknown [id number] 2.16.840.1.558844.3.579.2.593 1958 Unknown [id number] 2.16.840.1.349971.3.579.2.593 1958 Unknown [id number] 2.16.840.1.869040.3.579.2.72 1958 Unknown [id number] 2.16.840.1.963919.3.579.2.72 1958 Unknown [id number] 2.16.840.1.317802.3.579.2.72 1958 Unknown [id number] 2.16840.1.967998.3.579.2.72 1958 Unknown [id number] 2.16.840.1.177489.3.579.2.72 1958 Unknown [id number] 2.16.840.1.367200.3.579.2.72 1958 Unknown [id number] 2.16.840.1.566123.3.579.2.72 1958 Unknown [id number] 2.16.840.1.794516.3.579.2.72 1958 Unknown [id number] 2.16.840.1.665564.3.579.2.727 1958 Unknown [id number] 2.16.840.1.454116.3.579.2.727 1958 Unknown [id number] 2.16.840.1.724095.3.579.2.727 1958 Unknown [id number] 2.16.840.1.126859.3.579.2.727 1958 Unknown [id number] 2.16.840.1.952988.3.579.2.727 1958 Unknown [id number] 2.16.840.1.104605.3.579.2.727 1958 Unknown [id number] 2.16.840.1.189199.3.579.2.727 1958 Unknown [id number] 2.16.840.1.378130.3.579.2.128 6 1958 Unknown [id number] 2.16.840.1.595404.3.579.2.128 6 1958 Unknown [id number] 2.16.840.1.655409.3.579.2.128 6 1958 Unknown [id number] 2.16.840.1.810066.3.579.2.128 6 Unknown [id number] 2.16.840.1.118156.3.579.2.531 Unknown [facility] [id number] Social History Date Type Detail Facility Start: 01-17-2021 End: 08-01-2023 Tobacco smoking status NHIS Never smoker [facility] Start: 01-17-2021 End: 05-17-2023 Tobacco use and exposure Never used [facility] Start: 01-17-2021 End: 06-06-2023 Alcohol intake Current drinker of alcohol (finding) [facility] Start: 01-17-2021 History SDOH Alcohol Frequency 1 [facility] Start: 01-17-2021 Alcohol Comment socially 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 [facility] How hard is it for y ou to pay for the very basics like food, housing, medical care, and heating Not very hard [facility] (I/We) worried liss er (my/our) food would run out before (I/we) got money to buy more. DK or Refused [facility] Start: 1960 Sex Assigned At Female [facility] Functional Status Date Assessment Result Facility 05-22-2023 Functional Status N/A [facility] 05-11-2023 Functional Status [facility] 02-22-2023 Functional Status N/A [facility] 09-21-2022 Functional Status N/A [facility] 09-13-2022 Functional Status N/A [facility] Clinical Notes 01-17-2021 to 09-27-2023 Telephone Encounter - Rosie Buckner Research Coordinator - 09/27/2023 2:32 PM ESTTelephone Encounter - Rosie Buckner, Research Coordinator - 09/26/2023 3:31 PM EST Note Date & Type Note Facility 09-27-2023 Miscellaneous Notes Summary: [facility] IRB# [id number] IRB# [id number]: Vascular events in patients undergoing same-day nonCardiac surgery - [facility] PI: Mary Rojas MD, LETY, BARNEY. Outcomes Research Department. Anesthesia [place]. [facility]. Aislinn Wheeler was unavailable at the listed phone number. We will attempt to contact the patient through [employer] message. Rosie Esqueda, Research Coordinator Research Coordinator documented in this encounter [facility] 09-26-2023 Miscellaneous Notes Summary: [facility] IRB# [id number] IRB# [id number]: Vascular events in patients undergoing same-day nonCardiac surgery - [facility] PI: Mary Rojas MD, MBA, BARNEY. Outcomes Research Department. Anesthesia [place]. [facility]. Aislinn Wheeler was unavailable at the listed phone number. We will attempt to contact the patient again at a later date. Rosie Esqueda, Research Coordinator Research Coordinator documented in this encounter [facility] 09-07-2023 Miscellaneous Notes Formattin g of this note might be different from the original. Last OV: 08/09/2023 Next OV: --- OARRS appropriate: yes Last UDS: 08/09/2023 Pharmacy: [facility] Patient left phone message requesting refill on [place] and Lyrica. Lyrica prescription signed 08/11/2023 has 1 refill. Per OARRS patient last filled Lyrica 08/11/2023. [place] prescription pended for review and signature. Patient's fill dated adjusted from 09/14/23 to 09/17/23 due to recent 3 day hospitalization. documented in this encounter [facility] 09-07-2023 Telephone encount er Note Last OV: 08/09/2023 Next OV: --- OARRS appropriate: yes Last UDS: 08/09/2023 Pharmacy: [facility] Patient left phone message requesting refill on [place] and Lyrica. Lyrica prescription signed 08/11/2023 has 1 refill. Per OARRS patient last filled Lyrica 08/11/2023. [place] prescription pended for review and signature. [facility] 09-07-2023 Telephone encount er Note Patient's fill dated adjusted from 09/14/23 to 09/17/23 due to recent 3 day hospitalization. [facility] 09-03-2023 Note HNO ID: [id number] Author: KRYSTA SULLIVAN MD Service: Hospital Medicine Author Type: Physician Type: Progress Notes Filed: 09/03/2023 18:51 Note Text: INPATIENT PROGRESS NOTE SERVICE DATE: 09/03/2023 SERVICE TIME: 6:31 PM PRIMARY SERVICE: Hospital Medicine Subjective No acute events overnight No abdominal pain/nausea/ foot pain No fever/chills Good po intake Current Facility-Administered Medications Medication Dose Route Frequency NaCl 0.9% iv flush bag 20 mL INTRAVENOUS PRN dextrose 40 % 15 g 15 g ORAL PRN Or glucagon 1 mg injection 1 mg INTRAMUSCULAR PRN Or dextrose 10% iv bolus 12.5 g INTRAVENOUS PRN albuterol HFA 90 mcg/actuation 2 Puff (PROVENTIL HFA, VENTOLIN HFA) 2 Puff INHALATION q 6 H PRN insulin glargine 25 Units pen (long acting) 25 Units SUBCUTANEOUS AT BEDTIME cyanocobalamin 1,000 mcg (VITAMIN B-12) 1,000 mcg ORAL DAILY ferrous sulfate 325 mg tab(s) 325 mg ORAL q 48 H insulin lispro injection (rapid acting) (ADMElog) SUBCUTANEOUS w MEALS insulin lispro injection (rapid acting) (ADMElog) SUBCUTANEOUS AT BEDTIME pregabalin 75 mg cap(s) (LYRICA) 75 mg ORAL BID calcium carbonate 500 mg chewable tab(s) (TUMS) 500 mg ORAL TID PRN acetaminophen 650 mg tab(s) (TYLENOL) 650 mg ORAL q 8 H PRN HYDROcodone-Acetaminophen 7.5-325 mg 1 tablet tablet (NORCO) 1 tablet ORAL q 8 H PRN heparin 5,000 Units injection 5,000 Units SUBCUTANEOUS q 12 H Objective PHYSICAL EXAM: 09/03/23 0730 09/03/23 1033 09/03/23 1241 09/03/23 1602 BP: 168/81 185/90 200/95 160/90 Pulse: 69 76 79 76 Resp: 16 16 Temp: 36.6 ?C (97.9 ?F) 36.6 ?C (97.9 ?F) TempSrc: Oral Oral SpO2: 96% 99% 100% 99% Weight: Height: Physical Exam Performed GENERAL: Alert, no distress, cooperative LUNGS: Lungs clear to auscultation CARDIAC: Normal S1 and S2; no rubs,no murmurs ABDOMEN: Abdomen soft, non-tender, +BS normal NEURO:Sensation grossly intact, Cranial nerves II-XII intact PULSES: 2+ radial, 2+ carotid DATA: Diagnostic tests reviewed for today's visit: Most recent labs and imaging results. CBC, Coags, BMP, Mg, Phos Recent Labs 09/03/23 0441 09/02/23 0430 09/02/23 0429 09/01/23 0455 WBC 6.44 5.94 -- 7.48 HB 8.9* 8.9* -- 9.1* HCT 28.7* 28.4* -- 29.4* PLT 334 285 -- 275 NA 136 -- 137 138 K 5.0 -- 4.9 4.7 CHLOR 103 -- 106* 108* CO2 23 -- 22 20* BUN 22* -- 17 25* CREAT 1.29* -- 1.30* 1.39* GLUC 123* -- 192* 74 CA 8.8 -- 8.1* 7.9* MG -- -- -- 1.5* CSF AND Dilantin Liver Function, Amylase, AND Lipase Assessment/Plan ANATOLIY (acute kidney injury) on chronic kidney disease stage III/ mild hyperkalemia /pseudohyponatremia most likely prerenal with severe hyperglycemia with forced diuresis and function improved with IV fluid hydration almost back to baseline continue to monitor while hospitalized, sodium 138 potassium 4.7, creatinine 1.39 Diabetic foot ulcer Left left foot x-ray showed focal lucency associated with the lateral fifth metatarsal. This could reflect a radiographic manifestation of osteomyelitis on IV Rocephin Podiatry consulted for further recommendation and management Underwent CT Foot Pending podiatry recs UTI blood cultures drawn in the ER negative to date urine culture mixed microbiota Repeat urine culture neg Dc IV Rocephin Insulin-dependent diabetes with hyperglycemia continue the patient on Lantus and insulin sliding scale Neurogenic bladder with retention requiring Chaves in the ER, On straight catheter per urology note but patient mentioned for almost 10 months she was not needing straight catheterization discontinued Chaves monitor for retention Prn st cath Chronic pain on Lyrica and narcotic prescription will continue. Chronic anemia at baseline will continue to monitor. Medication and Non-Pharmacologic VTE Prophylaxis/Anticoagulants Anticoagulant AND Antiplatelet Medications (From admission, onward) Start Dose Route Frequency Last Action Ordered Stop 09/01/23 1200 heparin 5,000 Units injection 5,000 Units SUBCUTANEOUS EVERY 12 HOURS Given, 09/03 0840 09/01/23 1135 -- 08/31/23 1115 activity - mobilize patient (wy,sc) VTE Prophylaxis: VTE prophylaxis appropriate SIGNATURE: Krysta Sullivan MD PATIENT NAME: Aislinn Wheeler DATE: September 03, 2023 TIME: 6:31 PM [facility] 09-02-2023 Note HNO ID: [id number] Author: KRYSTA SULLIVAN MD Service: Hospital Medicine Author Type: Physician Type: Progress Notes Filed: 09/02/2023 14:35 Note Text: INPATIENT PROGRESS NOTE SERVICE DATE: 09/02/2023 SERVICE TIME: 2:31 PM PRIMARY SERVICE: Hospital Medicine Subjective No acute events overnight No abdominal pain/nausea/ foot pain No fever/chills Good po intake Current Facility-Administered Medications Medication Dose Route Frequency NaCl 0.9% iv flush bag 20 mL INTRAVENOUS PRN dextrose 40 % 15 g 15 g ORAL PRN Or glucagon 1 mg injection 1 mg INTRAMUSCULAR PRN Or dextrose 10% iv bolus 12.5 g INTRAVENOUS PRN albuterol HFA 90 mcg/actuation 2 Puff (PROVENTIL HFA, VENTOLIN HFA) 2 Puff INHALATION q 6 H PRN insulin glargine 25 Units pen (long acting) 25 Units SUBCUTANEOUS AT BEDTIME cyanocobalamin 1,000 mcg (VITAMIN B-12) 1,000 mcg ORAL DAILY ferrous sulfate 325 mg tab(s) 325 mg ORAL q 48 H cefTRIAXone iv piggyback 1 g in dextrose (iso-osmotic) 50 mL (ROCEPHIN) 1 g INTRAVENOUS q 24 H insulin lispro injection (rapid acting) (ADMElog) SUBCUTANEOUS w MEALS insulin lispro injection (rapid acting) (ADMElog) SUBCUTANEOUS AT BEDTIME pregabalin 75 mg cap(s) (LYRICA) 75 mg ORAL BID calcium carbonate 500 mg chewable tab(s) (TUMS) 500 mg ORAL TID PRN acetaminophen 650 mg tab(s) (TYLENOL) 650 mg ORAL q 8 H PRN HYDROcodone-Acetaminophen 7.5-325 mg 1 tablet tablet (NORCO) 1 tablet ORAL q 8 H PRN heparin 5,000 Units injection 5,000 Units SUBCUTANEOUS q 12 H Objective PHYSICAL EXAM: 09/02/23 0437 09/02/23 0755 09/02/23 1131 09/02/23 1145 BP: 140/75 163/76 162/100 169/80 Pulse: 75 72 76 Resp: 16 16 16 Temp: 36.5 ?C (97.7 ?F) 36.3 ?C (97.3 ?F) 36.7 ?C (98.1 ?F) TempSrc: Oral Oral Oral SpO2: 97% 97% 97% Weight: Height: Physical Exam Performed GENERAL: Alert, no distress, cooperative LUNGS: Lungs clear to auscultation CARDIAC: Normal S1 and S2; no rubs,no murmurs ABDOMEN: Abdomen soft, non-tender, +BS normal NEURO:Sensation grossly intact, Cranial nerves II-XII intact PULSES: 2+ radial, 2+ carotid DATA: Diagnostic tests reviewed for today's visit: Most recent labs and imaging results. CBC, Coags, BMP, Mg, Phos Recent Labs 09/02/23 0430 09/02/23 0429 09/01/23 0455 08/31/23 0736 08/31/23 0358 WBC 5.94 -- 7.48 -- 8.87 HB 8.9* -- 9.1* -- 10.0* HCT 28.4* -- 29.4* -- 31.5* PLT 285 -- 275 -- 316 NA -- 137 138 -- 130* K -- 4.9 4.7 4.6 5.2* CHLOR -- 106* 108* -- 99 CO2 -- 22 20* -- 19* BUN -- 17 25* -- 39* CREAT -- 1.30* 1.39* -- 2.15* GLUC -- 192* 74 -- 428* CA -- 8.1* 7.9* -- 8.7 MG -- -- 1.5* -- -- CSF AND Dilantin Liver Function, Amylase, AND Lipase Recent Labs 08/31/23 0358 TPROT 9.1* ALB 3.7* ALT <5* AST 7* ALKPHOS 99 TBILI 0.3 LACT 1.1 1.2 Assessment/Plan ANATOLIY (acute kidney injury) on chronic kidney disease stage III/ mild hyperkalemia /pseudohyponatremia most likely prerenal with severe hyperglycemia with forced diuresis and function improved with IV fluid hydration almost back to baseline continue to monitor while hospitalized, sodium 138 potassium 4.7, creatinine 1.39 Diabetic foot ulcer Left left foot x-ray showed focal lucency associated with the lateral fifth metatarsal. This could reflect a radiographic manifestation of osteomyelitis on IV Rocephin Podiatry consulted for further recommendation and management UTI blood cultures drawn in the ER negative to date urine culture mixed microbiota Repeat urine culture neg Dc IV Rocephin Insulin-dependent diabetes with hyperglycemia continue the patient on Lantus and insulin sliding scale. Neurogenic bladder with retention requiring Chaves in the ER, On straight catheter per urology note but patient mentioned for almost 10 months she was not needing straight catheterization discontinue Chaves today monitor for retention Chronic pain on Lyrica and narcotic prescription will continue. Chronic anemia at baseline will continue to monitor. Medication and Non-Pharmacologic VTE Prophylaxis/Anticoagulants Anticoagulant AND Antiplatelet Medications (From admission, onward) Start Dose Route Frequency Last Action Ordered Stop 09/01/23 1200 heparin 5,000 Units injection 5,000 Units SUBCUTANEOUS EVERY 12 HOURS Given, 09/02 0844 09/01/23 1135 -- 08/31/23 1115 activity - mobilize patient (wy,oh) VTE Prophylaxis: VTE prophylaxis appropriate SIGNATURE: Krysta Sullivan MD PATIENT NAME: Aislinn Wheeler DATE: September 02, 2023 TIME: 2:31 PM [facility] 09-02-2023 Note HNO ID: [id number] Author: NOTE, INTERFACE, ? Service: ? Author Type: ? Type: Progress Notes Filed: 09/02/2023 02:20 Note Text: Epic Scheduled Downtime: 09/02/2023 1:00:00 AM to 09/02/2023 2:04:22 AM [facility] 09-01-2023 Note HNO ID: [id number] Author: CHELSEA LOUIS RN Service: Care Management Author Type: Registered Nurse Type: Care Mgt Progress Note Filed: 09/01/2023 15:30 Note Text: CARE MANAGEMENT WEEKEND PLANNING NOTE NO WEEKEND DISCHARGE Disposition: TBD Anticipated Discharge Date: No weekend DC anticipated Weekend [employer] Pager #: Girish Rogers [phone] ANATOLIY UTI - repeat UA sent - bc pending Waiting on podiatry consult SIGNATURE: Chelsea Louis RN PATIENT NAME: Aislinn Wheeler DATE: September 01, 2023 TIME: 3:28 PM PAGER/CONTACT #: [phone] [facility] 09-01-2023 Note HNO ID: [id number] Author: ANTHONY BARROW MD Service: Hospital Medicine Author Type: Physician Type: Progress Notes Filed: 09/01/2023 11:40 Note Text: INPATIENT PROGRESS NOTE SERVICE DATE: 09/01/2023 SERVICE TIME: 11:36 AM PRIMARY SERVICE: Hospital Medicine Subjective patient was laying in bed denied any foot pain, no pelvic pain no flank pain no fever or chills no chest pain or shortness of breath Current Facility-Administered Medications Medication Dose Route Frequency NaCl 0.9% iv flush bag 20 mL INTRAVENOUS PRN dextrose 40 % 15 g 15 g ORAL PRN Or glucagon 1 mg injection 1 mg INTRAMUSCULAR PRN Or dextrose 10% iv bolus 12.5 g INTRAVENOUS PRN albuterol HFA 90 mcg/actuation 2 Puff (PROVENTIL HFA, VENTOLIN HFA) 2 Puff INHALATION q 6 H PRN insulin glargine 25 Units pen (long acting) 25 Units SUBCUTANEOUS AT BEDTIME cyanocobalamin 1,000 mcg (VITAMIN B-12) 1,000 mcg ORAL DAILY ferrous sulfate 325 mg tab(s) 325 mg ORAL q 48 H cefTRIAXone iv piggyback 1 g in dextrose (iso-osmotic) 50 mL (ROCEPHIN) 1 g INTRAVENOUS q 24 H insulin lispro injection (rapid acting) (ADMElog) SUBCUTANEOUS w MEALS insulin lispro injection (rapid acting) (ADMElog) SUBCUTANEOUS AT BEDTIME pregabalin 75 mg cap(s) (LYRICA) 75 mg ORAL BID calcium carbonate 500 mg chewable tab(s) (TUMS) 500 mg ORAL TID PRN acetaminophen 650 mg tab(s) (TYLENOL) 650 mg ORAL q 8 H PRN HYDROcodone-Acetaminophen 7.5-325 mg 1 tablet tablet (NORCO) 1 tablet ORAL q 8 H PRN heparin 5,000 Units injection 5,000 Units SUBCUTANEOUS q 12 H Objective PHYSICAL EXAM: 09/01/23 0419 09/01/23 0537 09/01/23 0611 09/01/23 0745 BP: 174/63 142/61 161/68 Pulse: 81 78 81 Resp: 18 18 15 Temp: 36.8 ?C (98.2 ?F) 36.9 ?C (98.4 ?F) 37.1 ?C (98.8 ?F) TempSrc: Oral Oral Oral SpO2: 96% 98% 96% Weight: 55.3 kg (121 lb 14.6 oz) Height: 152.4 cm (5') Physical Exam Performed GENERAL: Alert, no distress, cooperative LUNGS: Lungs clear to auscultation CARDIAC: Normal S1 and S2; no rubs,no murmurs ABDOMEN: Abdomen soft, non-tender, +BS normal NEURO:Sensation grossly intact, Cranial nerves II-XII intact PULSES: 2+ radial, 2+ carotid DATA: Diagnostic tests reviewed for today's visit: Most recent labs and imaging results. CBC, Coags, BMP, Mg, Phos Recent Labs 09/01/23 0455 08/31/23 0736 08/31/23 0358 WBC 7.48 -- 8.87 HB 9.1* -- 10.0* HCT 29.4* -- 31.5* PLT 275 -- 316 NA 138 -- 130* K 4.7 4.6 5.2* CHLOR 108* -- 99 CO2 20* -- 19* BUN 25* -- 39* CREAT 1.39* -- 2.15* GLUC 74 -- 428* CA 7.9* -- 8.7 MG 1.5* -- -- CSF AND Dilantin Liver Function, Amylase, AND Lipase Recent Labs 08/31/23 0358 TPROT 9.1* ALB 3.7* ALT <5* AST 7* ALKPHOS 99 TBILI 0.3 LACT 1.1 1.2 Assessment/Plan ANATOLIY (acute kidney injury) on chronic kidney disease stage III/ mild hyperkalemia /pseudohyponatremia most likely prerenal with severe hyperglycemia with forced diuresis and function improved with IV fluid hydration almost back to baseline continue to monitor while hospitalized, sodium 138 potassium 4.7, creatinine 1.39 Diabetic foot ulcer Left left foot x-ray showed focal lucency associated with the lateral fifth metatarsal. This could reflect a radiographic manifestation of osteomyelitis on IV Rocephin To be seen by podiatry for further recommendation and management UTI blood cultures drawn in the ER negative to date, urine culture mixed microbiota will repeat UA and cultures continue IV Rocephin Insulin-dependent diabetes with hyperglycemia better controlled today we will continue the patient on Lantus and insulin sliding scale. Neurogenic bladder with retention requiring Chaves in the ER, supposed to be on straight catheter per urology note but patient mentioned for almost 10 months she was not needing straight catheterization, will discontinue Chaves tomorrow and monitor for retention Chronic pain on Lyrica and narcotic prescription will continue. Chronic anemia at baseline will continue to monitor. Medication and Non-Pharmacologic VTE Prophylaxis/Anticoagulants Anticoagulant AND Antiplatelet Medications (From admission, onward) Start Dose Route Frequency Last Action Ordered Stop 09/01/23 1200 heparin 5,000 Units injection 5,000 Units SUBCUTANEOUS EVERY 12 HOURS Ordered 09/01/23 1135 -- 08/31/23 1115 activity - mobilize patient (wy,oh) VTE Prophylaxis: VTE prophylaxis appropriate SIGNATURE: Anthony Barrow MD PATIENT NAME: Aislinn Wheeler DATE: September 01, 2023 TIME: 11:36 AM [facility] 08-31-2023 Note HNO ID: [id number] Author: TIN QUIÑONEZ LSW Service: Care Management Author Type: Traveling Storekeeper Type: Care Mgt Initial Assessment Filed: 08/31/2023 14:02 Note Text: CARE MANAGEMENT: ASSESSMENT AND DISCHARGE PLAN SERVICE DATE: August 31, 2023 SERVICE TIME: 1:42 PM PCP: Latosha Olmstead Primary Contact: Extended Emergency Contact Information Primary Emergency Contact: CHLOE SEARS Mobile Relation: Grandchild Admission Status: Inpatient Insurance Provider: [facility] MEDIC[facility] PPO Discharge Planning requested by: Per Department Practice Potential Transition Plans To Be Determined Advance Directives Current Advance Directive: None [employer]er Attempted to Assist with AD Completion: Yes Action: Education Provided Current Living Arrangements and Support Lives with: Family members, Children Type of Residence: Private Residence (House) Support: Family members How do you manage to accomplish the following: Independent: Ambulation;Bathe/Shower;Dress;M eals/Meal Prep;Going to the bathroom;Medication Management;Transportation to appointments/community Current Services/Equipment Current Post-Acute Service(s): None Discharge Planning Patient Goal(s): General wellness [place] Choice Explained: [place] Given: No Reason Not Given: No placements necessary Are you interested in bedside delivery of your medications? No Discharge Planning Participant(s): Patient Patient/Family Comments: Caregiver Assessment: Caregiver is ready, willing and able to meet the patient's needs as recommended by the inter-professional team: No Caregiver needed Transport at Discharge: Transportation Arrangements: To Be Determined Needs Prior to Discharge: Needs Prior to Discharge: To Be Determined Post-Acute Discharge Plan: Pt being admitted for diabetic foot ulcer. SW met with pt at bedside. Pt lives in [facility] [place] with her grandchildren (18, 17, and 13). Sts her son will be staying with them while pt is in the hospital. Pt IPTA. No HHC no DME. Sts she has DME at home from her late . Family will transport home at d/c. Pod consulted. D/c needs TBD. SIGNATURE: DEL Hall PATIENT NAME: Aislinn Wheeler DATE: August 31, 2023 TIME: 1:42 PM CONTACT #: [id number] [facility] 08-31-2023 History of Past i llness Narrative Problem Noted Date Diagnosed Date Resolved Date Fever 08/31/2023 09/04/2023 Urinary tract infection without hematuria 08/31/2023 09/04/2023 Acute cystitis without hematuria 01/18/2021 01/21/2021 Pyelonephritis 01/17/2021 01/21/2021 Sepsis 01/17/2021 01/21/2021 Hyponatremia 01/17/2021 01/21/2021 Hyperkalemia 01/17/2021 09/04/2023 ANATOLIY (acute kidney injury) 01/17/2021 Hydronephrosis due to obstruction of ureter 01/17/2021 01/21/2021 documented as of this encounter (statuses as of 09/27/2023) [facility] History of Past illness Narrative* Problem Noted Date Diagnosed Date Resolved Date Fever 08/31/2023 09/04/2023 Urinary tract infection without hematuria 08/31/2023 09/04/2023 Acute cystitis without hematuria 01/18/2021 01/21/2021 Pyelonephritis 01/17/2021 01/21/2021 Sepsis 01/17/2021 01/21/2021 Hyponatremia 01/17/2021 01/21/2021 Hyperkalemia 01/17/2021 09/04/2023 ANATOLIY (acute kidney injury) 01/17/2021 Hydronephrosis due to obstruction of ureter 01/17/2021 01/21/2021 documented as of this encounter (statuses as of 09/28/2023) [facility] History of Past illness Narrative* Problem Noted Date Diagnosed Date Resolved Date Fever 08/31/2023 09/04/2023 Urinary tract infection without hematuria 08/31/2023 09/04/2023 Acute cystitis without hematuria 01/18/2021 01/21/2021 Pyelonephritis 01/17/2021 01/21/2021 Sepsis 01/17/2021 01/21/2021 Hyponatremia 01/17/2021 01/21/2021 Hyperkalemia 01/17/2021 09/04/2023 ANATOLIY (acute kidney injury) 01/17/2021 Hydronephrosis due to obstruction of ureter 01/17/2021 01/21/2021 documented as of this encounter (statuses as of 09/28/2023) [facility]11-15-2023 Evaluation note* Encounter Date Diagnosis Assessment Notes Treatment Notes Treatment Clinical Notes Jun, Vitamin B12 deficiency (ICD-10 - E53.8) [employer] Other [id number] NoteHNO ID: [id number] Author: Rashad Kaye Service: ? Author Type: ? Type: Plan of Care Filed: 06/26/2023 9:53 AM Note Text: PHARMACY BEDSIDE DELIVERY SERVICE Patient Name: Aislinn Wheeler The marked outpatient medications were Filled at: [place] and delivered to the patient's bedside to [facility] Medication List START taking these medications acetaminophen [...] them or your Primary Care Provider. Rashad Munizluciano PAGER: [phone] June 26, 2023 9:52 [facility]11-03-2023 NoteHNO ID: [id number] Author: Taurus Ballard MD Service: Urology Author Type: Physician Type: Progress Notes Filed: 06/23/2023 1:37 PM Note Text: [facility] UROLOGY PROGRESS NOTE Name: Aislinn Wheeler Bed: [id number] Date: June 23, 2023 After Hours [facility] [place] [facility] Service Pager: [phone] ASSESSMENT AND PLAN Aislinn Wheeler is a [...] Jeet De La Fuente MD Urology Resident [facility] Pager [phone] SUBJECTIVE -c/o pain, had a BM, no [...] 0659 06/23/23 0700 - 06/24/23 0659 Shift 2145-4611 8787-3187 2517-6972 24 Hour Total 3656-4101 6878-2633 9433-9695 24 Hour Total INTAKE IV 1600 1600 Volume (mL) (lactated ringers iv infusion) 1000 1000 Volume (mL) (lactated ringers iv infusion) 600 600 Shift Total 1600 1600 OUTPUT Urine 300 962 330 3068 OR Urine Output 300 300 Output ( Indwelling Urinary Catheter 06/22/23 1130 Chaves 16 Fr) 784 926 6040 Tubes 20 40 60 Drain/Tube Output (Drain/Tube 06/22/23 1333 Lex Vega Right Lower Quadrant Abdomen Drain #1) 20 40 60 # of BMs Number of BMs 1 x 1 x Blood 50 50 Estimated Blood loss 50 50 Shift Total 350 995 858 0744 Weight (kg) 59 59 59 59 59 59 59 Physical Exam General: Well-appearing, no acute distress CV: Warm and well perfused Lungs: Unlabored breathing on RA Abdomen: soft, carloz -tender, non-distended, JUAN ss Wound: Incision clean, [...] We will call with pathology. Taurus Ballard [facility]11-03-2023 Miscellaneous Notes* Telephone Encounter - Heidy Garcia RN - 06/23/2023 9:03 AM EDT Patient had left robotic partial nephrectomy by Dr. Ballard on 06/22/2023 Will call for surgical follow up once discharged documented in this encounterTri[facility]23 NoteHNO ID: [id number] Author: Linda Nicholson RN Service: Nursing Author Type: Registered Nurse Type: Nursing Progress Note Filed: 06/22/2023 2:15 PM Note Text: surgical dressing: surgical glue, [facility]11-02-2023 NoteHNO ID: [id number] Author: Chloe Be APRN.SHEARING SHED HAND Service: ? Author Type: Nurse Accounting Supervisor Type: Anesthesia Procedure Notes Filed: 06/22/2023 12:24 PM Note Text: ANESTHESIOLOGY PROCEDURE NOTE Airway General Information Procedure Start Time/Medication Administration: 06/22/2023 11:22 AM Patient location during procedure: OR Patient identity confirmed: arm band, care hospitality team member and patient Staffing SHEARING SHED HAND: Chloe Be APRN.SHEARING SHED HAND Performed by: SHEARING SHED HAND Indications and Patient Condition Indications for airway [...] insertion, baseline dentition intact SIGNATURE: Chloe Be APRN.CRNA PATIENT NAME: Aislinn Wheeler DATE: June 22, 2023 TIME: 12:24 PM CSN: [id number] Miscellaneous Notes* Telephone Encounter - Vonnie Wilder RN - 06/15/2023 11:24 AM EDT Attempted to call patient for pre op instructions.mailbox is full and unable to LVM. Will try again. documented in this encounterTrihealth [facility] Evaluation note* Encounter Date Diagnosis Assessment [...] (ICD-10 - Z68.25) May, Other see above [employer] Other 10-02-2023 Note [id number]#[id number]:127[facility] 05-22-2023 NoteCystoscopy with Botox injection ? Voiding [...] if you have a fever over 100 degrees.[facility] 05-22-2023 Hospital Discharge instructions Patient Education 05/22/2023 [...] Up Care 05/03/2023 10:48:47 With:Lisa Porras Address: [address] [place] [address]- [phone] Business (1) [facility] [address]anc[address]os Leg[address] [address] [phone] Business (1) When: Unknown Comments:Office to schedule follow up in 1 month with [facility]09-28-2023 Evaluation note* Encounter Date Diagnosis Assessment Notes [...] review of log sheets. Schedule apt with RD for instruction of carb counting. Apr, Dietary [...] 24.0-24.9, adult (ICD-10 - Z68.24) see above [employer] Other [id number] Miscellaneous Notes* Telephone Encounter - Latosha Faulkner - 05/18/2023 12:57 PM EDT Consult notes sent back to Dr. Lisa Porras , phone [phone]. From Dr. Ballard office. documented in this encounterTrihealth [facility]09-27-2023 NoteHNO ID: [id number] Author: Taurus Ballard MD Service: ? Author Type: Physician Type: Progress Notes Filed: 05/17/2023 1:35 PM Note Text: [facility] FOLLOW-[facility] PATIENT HISTORY AND PHYSICAL EXAM [...] 1.92 01/19/[address] scan (outside records) [facility] 09/28/21 IMPRESSION: Since the prior CT scan [...] threatening or minor complicatio (more content not included)...[facility] Discharge instructions Patient Education 02/22/2023 09:35:15 [...] provider. Document Revised: 12/16/2021 Document Reviewed: 12/16/2021 [employer] Patient Education 2022 [employer]. Follow Up Care 09/13/2022 14:59:43 With:Vern TAVERAS, EMELINA Hernandez, URO Address: When:Within 2 Month(s) Comments:w/ RIVAS [facility] 05-09-2023 Evaluation note* Encounter Date Diagnosis Assessment [...] N28.1) Patient follows with urology clinic in [facility] for enlarging left renal cyst. December, [...] her blood pressure persistently more than 150/90. [facility] Other 02-01-2023 Hospital Discharge instructions Patient Education [...] 07/24/2013 Document Revised: 03/27/2019 Document Reviewed: 03/27/2019 [employer] Patient Education 2020 [employer] Follow Up Care 09/14/2022 14:44:34 With:Vern TAVERAS, EMELINA Hernandez, URO Address: When: Unknown [facility] 01-24-2023 Hospital Discharge instructions Patient Education 09/13/2022 13:49:42 [...] fried and sweet foods. General instructions Take cxcg-vjp-yajttqt and prescription medicines only as told by [...] 06/03/2010 Document Revised: 11/28/2019 Document Reviewed: 08/23/2018 [employer] Patient Education 2020 [employer]. Follow Up Care 08/24/2022 11:21:49 With:CATALINA VIRGEN, HEIDY Rodriguez, URL Address: [address] [place] [address] When: Unknown [facility] 06-09-2021 Miscellaneous Notes* Telephone Encounter - Barbara Talbot - 01/27/2021 10:30 AM EDT Scheduled 02/15 * Telephone Encounter - Barb Silva MD - 01/27/2021 9:40 AM EDT Please schedule hospital follow up with Guy Overton Deitzer, or Sasha. Virtual ok documented in this encounterTrihealth [facility]06-03-2021 NoteHNO ID: [id number] Author: Griselda Diaz (Coremaker Helper) Service: ? Author Type: ? Type: Plan [...] Generic drug: insulin detemir U-100 Griselda Diaz (Coremaker Helper) PAGER: paris January 21, 2021 4:27 [facility]164 NoteHNO ID: [id number] Author: ELIZABETH Kothari Service: Care Management Author Type: Traveling Storekeeper Type: Care Mgt Progress Note Filed: 01/21/2021 1:39 PM Note Text: CARE MANAGEMENT DISCHARGE NOTE SERVICE DATE: 01/21/2021 SERVICE TIME: 1300 LOS: 4 days Admission Date: 01/17/2021 DISCHARGE ARRANGEMENT (list agency and phone number) Discharge Arrangement: Home;Home Fpc Care: Nursing;PT;OT Provider Name: [employer] ServicesPhone: CAREGIVER ASSESSMENT: Maira Davila to transport home [phone] HANDOFF COMMUNICATION: Handoff to: Other Caregiver;Primary Care Physician Primary Care Physician Name/Phone: Madeline Jordan PA-C Other Caregiver Name/Phone: [facility] TRANSPORTATION ARRANGEMENTS: Transportation Arrangements: Car (Family to transport) ADDITIONAL CONTACT RESOURCES: [facility] not able to accept. [place] of choice provided and sent to first available to accept to her service area. [facility] willing to accept. Pt concerned she does not have [employer] part B to cover services. I spoke with maira who plans on paying for services out of pocket until pt's insurance becomes active February 18, 2021 Discharge Information Row Name ED to Hosp-Admission (Current) from 01/17/[address] [facility] Fax# Care to start after your appointment with internal medicine on 01/25/2021 for additional orders. The agency will be contacting you to set this up [employer] [facility] Equipment Needed Walker was delivered to hospital room prior to discharge [facility] willing to accept pending pt has her initial appointment with internal medicine on 01/25/2021. Both pt and grdtr Chloe were advised. Dr Hansen also provided script for outpt therapy should home care fall through or cost too high for grdtr to cover. Chloe to call Andi to discuss further. Walker was delivered to room and prescription was sent to [facility]. Chloe to diamond picker. No other homegoing needs. SIGNATURE: ELIZABETH Kothari PATIENT NAME: Aislinn Wheeler DATE: January 21, 2021 TIME: 1:32 PM PAGER/CONTACT #: [phone] [id number] NoteHNO ID: [id number] Author: Derik Daniel Service: Care Management Author Type: Resource Center Centrifuge Separator Operator Type: Care Mgt Progress Note Filed: 01/21/2021 11:24 AM Note Text: CARE MANAGEMENT PROGRESS NOTE SERVICE DATE: 01/21/2021 SERVICE TIME: 950 LOS: 4 days IMM Follow Up Copy Given: Yes Copy given to:: Patient Method: In Person SIGNATURE: Derik Josiahjavier Khalilkaren PATIENT NAME: Aislinn Wheeler DATE: January 21, 2021 TIME: 11:23 AM PAGER/CONTACT #: [phone] [id number] NoteHNO ID: [id number] Author: Ailyn Salas RN Service: Care Management Author Type: Registered Nurse Type: Care Mgt Progress Note Filed: 01/20/2021 3:29 PM Note Text: CARE MANAGEMENT PROGRESS NOTE SERVICE DATE: 01/20/2021 SERVICE TIME: 3:09 PM LOS: 3 days [place] of Choice Given: Yes Level of Care Discussed: Home Care Financial Disclosure Provided: No Financial Disclosure Comments: [facility] does not service area Provider List: Home [...] sent. Patient does not have a PCP. [facility] Care can provide a visiting provider to [...] 20, 2021 TIME: 3:09 PM PAGER/CONTACT #: [phone] NoteHNO ID: [id number] Author: Inna Hansen DO Service: Hospital Medicine Author Type: Physician Type: Progress Notes Filed: 01/20/2021 12:37 PM Note Text: DEPARTMENT OF HOSPITAL MEDICINE PROGRESS NOTE SERVICE DATE: 01/20/2021 SERVICE TIME: 10:37 AM Hospital Medicine/Primary Attending: Inna Hansen DO NIGHT AND WEEKEND COVERAGE: DELMY COVERAGE: Days: [phone], please contact via [employer] Nights: [phone], please page CC Hospitalist Night coverage pager [phone] Subjective INTERVAL HPI: nausea and vomiting this [...] Non-Pharmacologic VTE Prophylaxis/Anticoagulants 01/17/212214 pneumatic compression stockings ([place]) 01/17/212214 activity - [place] VTE Prophylaxis: VTE prophylaxis appropriate Disposition: [facility] Inna Hansen DO January 20, 2021 10:39 [facility]01 NoteHNO ID: [id number] Author: Benjamin Bernal MD Service: Urology Author [...] Wendy Bernal MD January 19, 2021 4:12 [facility] HospitalBzhjbllu68-16-0328 NoteHNO ID: [id number] Author: Diana SernaD Service: Pharmacy Author Type: Pharmacist Type: Plan of Care Filed: 01/19/2021 11:02 AM Note Text: PHARMACY MEDICATION REVIEW Patient Name: Aislinn Wheeler : 1960 The following medications were updated within the PAINTER AND DECORATOR APPRENTICE medication list: Medications ADDED to PAINTER AND DECORATOR APPRENTICE medication list ? Albuterol HFA (replaced nebs) ? Levemir (replaced Lantus) Medications CHANGED on PAINTER AND DECORATOR APPRENTICE medication list ? Lyrica (added instructions) ? Symbicort (added instructions) Medications REMOVED from PAINTER AND DECORATOR APPRENTICE medication list ? Diltiazem ? Cymbalta ? [...] nothing too big . Call placed to [facility] pharmacy to clarify prescribed dose of insulin, and the only prescription for insulin [facility] has on file is for Relion 70/30 inject 25 units BID. [facility] pharmacist states this was prescribed 02/19/2020 but never picked up. The below information represents the best possible medication history: Yes Medication history completed by: Pharmacist: Shelby Lucero PharmD Source of history: Patient: Reliability of source: Appears reliable, clearly identified: Medication name and Pharmacy records: [employer] data, [facility] pharmacy (phone call) Medication nonadherence identified: Unable to assess - it is clear the patient is noncompliant with her medications (admits she has been off her meds, no insulin fills at [facility] despite patient report), but at this time unable to assess reason for nonadherence. Reconciliation completed: Yes All PAINTER AND DECORATOR APPRENTICE medications addressed by LIP and Medication reconciliation completed by: Shelby Lucero PharmD Medications with dose or frequency intentionally adjusted at admission: ? [place] modified to 5/325 mg q6h PRN New medications at admission: ? Ceftriaxone Note patient ordered insulin regimen (Lantus 15 units QHS + sliding scale Humalog) and based on blood glucose readings, this is appropriate Patient interested in Bedside Delivery Services or using [facility] OP Pharmacy at discharge? Unable to assess Preferred outpatient pharmacy: [facility] [address] [place] [address] [address] - [phone] Allergies: Latex Rash Comment:Added based on information [...] instructed twice daily. Shelby Lucero, PharmD 01/19/2021von [id number] NoteHNO ID: [id number] Author: Inna Hansen DO Service: Hospital Medicine Author Type: Physician Type: Progress Notes Filed: 01/19/2021 2:24 PM Note Text: DEPARTMENT OF HOSPITAL MEDICINE PROGRESS NOTE SERVICE DATE: 01/19/2021 SERVICE TIME: 9:30 AM Hospital Medicine/Primary Attending: Inna Hansen DO NIGHT AND WEEKEND COVERAGE: DELMY COVERAGE: Days: [phone], please contact via [employer] Nights: [phone], please page CC Hospitalist Night coverage pager [phone] Subjective INTERVAL HPI: no overnight events. Denies [...] Most recent imaging Assessment/Plan Problem List Sepsis ([facility]) POA: Yes Pyelonephritis POA: Yes Hydronephrosis due to obstruction of ureter POA: Yes Acute cystitis without hematuria POA: Unknown Acute bilateral obstructive uropathy POA: Yes Hyponatremia POA: Yes ANATOLIY (acute kidney injury) ([facility]) POA: Yes Hyperkalemia POA: Yes Principal Problem: Sepsis ([facility]) Pyelonephritis Complicated UTI Hydronephrosis due to obstruction [...] Non-Pharmacologic VTE Prophylaxis/Anticoagulants 01/17/212214 pneumatic compression stockings ([place]) 01/17/21 2215 activity - [place]ize [place] VTE Prophylaxis: VTE prophylaxis appropriate Disposition: Home Discussed with granddaughter Chloe by phone with patient's permission. Inna Hansen DO January 19, 2021 9:33 [facility]Qqhamxbk68-68-8203 History of Past illness Narrative* Problem Noted Date Resolved Date Acute cystitis without hematuria 01/18/2021 01/21/2021 Pyelonephritis 01/17/2021 01/21/2021 Sepsis 01/17/2021 01/21/2021 Hyponatremia 01/17/2021 01/21/2021 Hyperkalemia 01/17/2021 01/21/2021 Hydronephrosis due to obstruction of ureter 12/2101/21/2021 documented as of this encounter (statuses as of 01/27/2021) [facility] History of Past illness Narrative* Problem Noted Date Diagnosed Date Resolved Date Acute cystitis without hematuria 01/18/2021 01/21/2021 Pyelonephritis 01/17/2021 01/21/2021 Sepsis 01/17/2021 01/21/2021 Hyponatremia 01/17/2021 01/21/2021 Hyperkalemia 01/17/2021 01/21/2021 Hydronephrosis due to obstruction of ureter 01/17/2021 01/21/2021 documented as of this encounter (statuses as of 06/09/2023) [facility] History of Past illness Narrative* Problem Noted Date Diagnosed Date Resolved Date Acute cystitis without hematuria 01/18/2021 01/21/2021 Pyelonephritis 01/17/2021 01/21/2021 Sepsis 01/17/2021 01/21/2021 Hyponatremia 01/17/2021 01/21/2021 Hyperkalemia 01/17/2021 01/21/2021 Hydronephrosis due to obstruction of ureter 01/17/2021 01/21/2021 documented as of this encounter (statuses as of 06/15/2023) [facility] History of Past illness Narrative* Problem Noted Date Diagnosed Date Resolved Date Acute cystitis without hematuria 01/18/2021 01/21/2021 Pyelonephritis 01/17/2021 01/21/2021 Sepsis 01/17/2021 01/21/2021 Hyponatremia 01/17/2021 01/21/2021 Hyperkalemia 01/17/2021 01/21/2021 Hydronephrosis due to obstruction of ureter 01/17/2021 01/21/2021 documented as of this encounter (statuses as of 06/19/2023) [facility] History of Past illness Narrative* Problem Noted Date Diagnosed Date Resolved Date Acute cystitis without hematuria 01/18/2021 01/21/2021 Pyelonephritis 01/17/2021 01/21/2021 Sepsis 01/17/2021 01/21/2021 Hyponatremia 01/17/2021 01/21/2021 Hyperkalemia 01/17/2021 01/21/2021 Hydronephrosis due to obstruction of ureter 01/17/2021 01/21/2021 documented as of this encounter (statuses as of 06/23/2023) [facility] History of Past illness Narrative* Problem Noted Date Diagnosed Date Resolved Date Acute cystitis without hematuria 01/18/2021 01/21/2021 Pyelonephritis 01/17/2021 01/21/2021 Sepsis 01/17/2021 01/21/2021 Hyponatremia 01/17/2021 01/21/2021 Hyperkalemia 01/17/2021 01/21/2021 Hydronephrosis due to obstruction of ureter 01/17/2021 01/21/2021 documented as of this encounter (statuses as of 07/05/2023) [facility] NoteHNO ID: [id number] Author: Inna Hansen DO Service: Hospital Medicine Author Type: Physician Type: Progress Notes Filed: 01/18/2021 4:10 PM Note Text: DEPARTMENT OF HOSPITAL MEDICINE PROGRESS NOTE SERVICE DATE: 01/18/2021 SERVICE TIME: 8:57 AM Hospital Medicine/Primary Attending: Inna Hansen DO NIGHT AND WEEKEND COVERAGE: DELMY COVERAGE: Days: [phone], please contact via [employer] Nights: [phone], please page CC Hospitalist Night coverage pager [phone] Subjective INTERVAL HPI: no overnight events. Denies [...] injury) (HCC) POA: Yes Hyperkalemia POA: Yes Principal Problem: Sepsis (HCC) Pyelonephritis Complicated UTI [...] Hyperkalemia resolved Medication and Non-Pharmacologic VTE Prophylaxis/Anticoagulants 01/17/21 221 pneumatic compression stockings ([place]) 01/17/212214 activity - [place]ize [place] VTE Prophylaxis: VTE prophylaxis appropriate Disposition: Home SIGNATURE: Inna Hansen DO PATIENT NAME: Aislinn Wheeler DATE: January 18, 2021 TIME: 8:57 [facility] [id number] NoteHNO ID: [id number] Author: Taurus Ballard MD Service: Urology Author [...] determine cause of her urinary retention. [facility]aurus Ballard [facility] HospitalVxcq[facility]dx34-59-0642 NoteHNO ID: [id number] Author: RT Dayanara(Raquel) Service: Radiology Author Type: Termite Helper Type: Progress Notes Filed: 01/17/2021 8:04 PM [...] IV DATA: Not applicable SIGNED BY: RT Dayanara(R) January 17, 2021 8:03 [facility] HospitalMgkontnc49-05-4758 NoteHNO ID: [id number] Author: RT Dayanara(Raquel) Service: Radiology Author Type: Termite Helper Type: Progress Notes Filed: 01/17/2021 5:30 PM [...] BY: RT Dayanara(Raquel) January 17, 2021 5:30 [facility] HospitalQibxyfou24-36-9059 NoteHNO ID: [id number] Author: Guy Rogers RT(R) Service: Radiology Author Type: Termite Helper Type: Progress Notes Filed: 01/17/2021 4:23 PM [...] Workman RT (R) January 17, 2021 4:22 [facility] HospitalYcbvfntv44-23-6366 NoteHNO ID: [id number] Author: AHSAN Barlow Service: ? Author Type: Clinical Termite Helper Type: Progress Notes Filed: 01/17/2021 4:19 PM [...] BY: AHSAN Dozier January 17, 2021 4:19 [facility] Future Appointments Appointment Date:12/13/2022 03:00:00 PM Scheduled Provider:HEIDY ARNOLD PA-C Location:[facility] Appointment Type:URO Office Visit [facility] evaluation + Plan note Future Appointments Appointment Date:10/26/2022 10:00:00 AM Scheduled Provider:Lisa Porras MD Location:[facility] Appointment Type:URO Office Visit Appointment Date:12/13/2022 03:00:00 PM Scheduled Provider:HEIDY ARNOLD PA-C Location:[facility] Appointment Type:URO Office Visit [facility] evaluation + Plan note Future Appointments Appointment Date:05/03/2023 10:00:00 AM Scheduled Provider:Lisa Porras MD Location:[facility] Appointment Type:URO Office Visit [facility] evaluation + Plan note Future Appointments Appointment Date:05/03/2023 10:00:00 AM Scheduled Provider:Lisa Porras MD Location:[facility] Appointment Type:URO Office Visit Diagnostic Tests Pending * [facility] Appointment Date:05/15/2023 12:30:00 PM Scheduled Provider: Location:[facility] Appointment Type:Urology CALL PAT FT Appointment Date:05/22/2023 10:30:00 AM Scheduled Provider: Location:[facility] Appointment Type:Urology FT Diagnostic Tests Pending * Urine [facility] App[facility]ments Appointment Date:06/28/2023 10:45:00 AM Scheduled Provider:Lisa Porras MD Location:[facility] App[facility]ment [facility]ments Appointment Date:06/28/2023 10:45:00 AM Scheduled Provider:Lisa Porras MD Location:[facility] Appointment Type:URO Office Visit Diagnostic Tests Pending * Urine Culture [facility]ments Appointment Date:07/18/2023 11:20:00 AM Scheduled Provider:HEIDY ARNOLD PA-C Location:[facility] Appointment Type:URO Office Visit [facility] evaluation + Plan note Future Appointments Appointment Date:10/10/2023 11:40:00 AM Scheduled Provider:HEIDY ARNOLD PA-C Location:[facility] Appointment Type:URO Office Visit [facility] evaluation noteNo InformationNort [employer] Other [employer] note* Diagnosis Kidney cyst, acquired- Primary Acquired cyst of kidney documented in this [facility] Diagnosis Reflex sympathetic dystrophy of right upper extremity documented in this encounter [facility] SystemEvaluation noteNo assessment information available [facility] Work Phone: [employer] general Narrative - Reported* Type Description Date [...] SURGERY Hospitalization History [facility] 2014 Hospitalization History [facility] SEPSIS 05/2022 [place] [employer] Other history general Narrative - Reported* Type Description Date [...] SURGERY Hospitalization History [facility] 2014 Hospitalization History [facility] SEPSIS 05/2022 [facility] [employer] Other Hospital course Narrative No data available for this section [facility] Hospital Discharge instructions No data available for this section [facility] InstructionsNot on filedocumented in this encounter [facility] SystemProgress note No data available for this section [facility] reason for referral (narrative)* Diagnostic Procedure Only (Routine) - Pending Review Specialty Diagnoses / Procedures Referred By Danny t Referred To Contact US IMAGING Diagnoses Kidney cyst, acquired Procedures US KIDNEY/BLADDER US RETROPERITONEAL REAL TIME W/IMAGE COMPLETE Taurus Ballard MD [address] [place] [address] [facility] [place] [address] Referral ID Status Reason Start Date Expiration Date Visits Requested Visits Authorized [id number] Pending Review Auto-Generat ed Referral 10/05/2023 08/03/2024 1 1 [facility] for visit NarrativeReferral Latosha Olmstead, New pt Type 2 IDDM apt with [employer] CHEMICAL TECHNICIAN, GYN PHYSICIAN-C, [facility] [employer] Other Summary Purpose Family History Relationship Condition Age at Onset Recorded Date/T lalit brother Heart disease Unknown Hypertension Unknown father Unknown Heart disease Unknown Diabetes mellitus Unknown Malignant neoplasm Unknown Not Specified Heart disease Unknown Unknown History of stroke Unknown natural son Heart disease Unknown sister Hypertension Unknown Advance Directives Documents on File Type Date Recorded Patient Composing Machine Operator Expl anation Advance Directive(s) 01/17/2021 3:49 PM Reason for Referral Referred by: Vern TAVERAS, Lisa Montiel Chief Complaint and Reason for Visit Chief Complaint Renal 4 Month Follow Up Additional Source Comments INFORMATION SOURCE (unrecogn ized section and content) DATE CREATED AUTHOR 01/23/2021 [facility] DATE CREATED AUTHOR AUTHOR'S ORGANIZ ATION 01/04/2023 [facility] DATE CREATED AUTHOR AUTHOR'S ORGANIZ ATION 06/19/2023 [facility] DATE CREATED AUTHOR AUTHOR'S ORGANIZ ATION 09/27/2023 [facility] DATE CREATED AUTHOR AUTHOR'S ORGANIZ ATION 09/28/2023 [facility] DATE CREATED AUTHOR AUTHOR'S ORGANIZ ATION 09/29/2023 [facility] DATE CREATED AUTHOR AUTHOR'S ORGANIZ ATION 10/02/2023 [facility] Source Comments (unrecognize d section and content) In the event this informatio n is protected by the Federal Confidentiality of Alcohol and Drug Abuse Patient Records regulations: The Federal rules restrict any use of the information to criminally investigate or prosecute any alcohol or drug abuse patient.[facility] Hospital[facility] the event this information is protected by the Federal Confidentiality of Alcohol and Drug Abuse Patient Records regulations: The Federal rules restrict any use of the information to criminally investigate or prosecute any alcohol or drug abuse patient.[facility] HospitalIn the event this information is protected by the Federal Confidentiality of Alcohol and Drug Abuse Patient Records regulations: The Federal rules restrict any use of the information to criminally investigate or prosecute any alcohol or drug abuse patient.[facility] HospitalIn the event this information is protected by the Federal Confidentiality of Alcohol and Drug Abuse Patient Records regulations: The Federal rules restrict any use of the information to criminally investigate or prosecute any alcohol or drug abuse patient.[facility] HospitalIn the event this information is protected by the Federal Confidentiality of Alcohol and Drug Abuse Patient Records regulations: The Federal rules restrict any use of the information to criminally investigate or prosecute any alcohol or drug abuse patient.[facility] HospitalIn the event this information is protected by the Federal Confidentiality of Alcohol and Drug Abuse Patient Records regulations: The Federal rules restrict any use of the information to criminally investigate or prosecute any alcohol or drug abuse patient.[facility] HospitalIn the event this information is protected by the Federal Confidentiality of Alcohol and Drug Abuse Patient Records regulations: The Federal rules restrict any use of the information to criminally investigate or prosecute any alcohol or drug abuse patient.[facility] HospitalIn the event this information is protected by the Federal Confidentiality of Alcohol and Drug Abuse Patient Records regulations: The Federal rules restrict any use of the information to criminally investigate or prosecute any alcohol or drug abuse patient.[facility] HospitalIn the event this information is protected by the Federal Confidentiality of Alcohol and Drug Abuse Patient Records regulations: The Federal rules restrict any use of the information to criminally investigate or prosecute any alcohol or drug abuse patient.[facility] Reason for Visit (unrecogniz ed section and content) Reason Comments Appointment Reason Comments Follow Up Reason Comments Pre-Op Teaching Reason Comments Surgical Followup Reason Onset Date Comments Med Refill 09/07/2023 Reason Onset Date Comments Research F/U 09/26/2023 Reason Onset Date Comments Research F/U 09/27/2023 Patient Care team informatio n (unrecognized section and content) Garage Mechanic Relationship Specialty Start Date End Date Latosha Olmstead [address] [place] [address] PCP - General 05/17/23 Lisa Porras MD [address] [place] [address] Referring Urology 05/11/23 Garage Mechanic Relationship Specialty Start Date End Date PennyLatosha weston [address] [place] [address] PCP - General 05/17/23 Lisa Porras MD [address] [place] [address] Referring Urology 05/11/23 Garage Mechanic Relationship Specialty Start Date End Date Pennyapurvamundo Latosha [address] [place] [address] PCP - General 05/17/23 Lisa Porras MD [address] [place] [address] Referring Urology 05/11/23 Garage Mechanic Relationship Specialty Start Date End Date Latosha Olmstead [address] [place] [address] PCP - General 05/17/23 Lisa Porras MD [address] [place] [address] Referring Urology 05/11/23 Garage Mechanic Relationship Specialty Start Date End Date Latosha Olmstead, CHEMICAL TECHNICIAN-SOUND PERSON [address] [place] [address] PCP - General Nurse Practitioner 11/10/22 Garage Mechanic Relationship Specialty Start Date End Date Latosha Olmstead [address] [place] [address] PCP - General 05/17/23 Lisa Porras MD [address] [place] [address] Referring Urology 05/11/23 Garage Mechanic Relationship Specialty Start Date End Date PennyLatosha flower [address] [place] [address] PCP - General 05/17/23 Lisa Porras MD [address] [place] [address] Referring Urology 05/11/23 Team Status: Active Member Role Status Dates Sumi Lentz APRN [employer]AV[employer] SALESPERSON-C Primary Care Provider Active Team Status: Inactive Member Role Status Dates Eli Sprague MD Attending Provider Active Star t: August 01, 2023 End: August 01, 2023 Goals (unrecognized section and content) Goals may be documented in a n alternate section FOR RECORDS PERTAINING TO PATIENTS WHO ARE [...] BE BASED ON THE PRIMARY CLINICAL RECORDS. [employer] provides no warranty or guarantee of the accuracy or completeness of information in this document.
== END 2023-10-13 09:38 | disposition home or self-care (01) ==
LOC: WC 09:37
PROVIDERS: PCP Nurse Practitioner; Visit Provider Podiatrist Foot & Ankle Surgery
DX: E11.622 Type 2 diabetes mellitus with other skin ulcer (principal); L97.822 Non-pressure chronic ulcer of other part of left lower leg with fat layer exposed
CPT/HCPCS: 29445; A6213

== ENCOUNTER 2023-10-23 13:53 | Outpatient (OUT) | payer MEDICARE, SELFPAY | END 2023-10-23 13:54 | disposition home or self-care (01) | LOC: WC 13:53 | PROVIDERS: PCP Nurse Practitioner; Visit Provider Physician Assistant | DX: E11.622 Type 2 diabetes mellitus with other skin ulcer (principal); L97.822 Non-pressure chronic ulcer of other part of left lower leg with fat layer exposed | CPT/HCPCS: 29445 ==

== ENCOUNTER 2023-10-24 08:17 | Outpatient (OUT) | payer MEDICARE, SELFPAY ==
--- OUTSIDE RECORDS SUMMARY | 2023-10-24 08:22 | XMS_ITS | CCD ---
Author Name Unknown Address [id number] [place] [address] Organization [facility] Care Team Providers Care Geometry Tutor Name Role Phone Pcp, No Primary Care Provider UnavailLATOSHA Harmon Primary Care Physician Eli Sprague Unavailable MARIBEL PEDIATRIC SOCIAL WORKER LATOSHA Attending Unavailable AICHHOLZ, PEDIATRIC SOCIAL WORKER LATOSHA Consulting Unavailable AICHHOLZ, PEDIATRIC SOCIAL WORKER LATOSHA Admitting Unavailable AICHHOLZ, PEDIATRIC SOCIAL WORKER LATOSHA Primary Care Unavailable RAMON HUNTLEY Attending Unavailable RAMON HUNTLEY Admitting Unavailable REQUEST, DR DANNIE LISTED Primary Care Unavaila bartolome DELVALLE, DR THANH García Consulting Unavailable RAMON HUNTLEY Consulting Unavailable AICHHOLZ, PEDIATRIC SOCIAL WORKER LATOSHA Primary Care Unavailable RAMON HUNTLEY Admitting Unavailable RAMON HUNTLEY Attending Unavailable AICHHOLZ, PEDIATRIC SOCIAL WORKER LATOSHA Primary Care Unavailable CLARIBEL, AMADO H Consulting Unavailable FAWWAD, AMADO H Admitting Unavailable FAWWAD, AMADO H Attending Unavailable AICHHOLZ, PEDIATRIC SOCIAL WORKER LATOSHA Consulting Unavailable AICHHOLZ, PEDIATRIC SOCIAL WORKER LATOSHA Admitting Unavailable AICHHOLZ, PEDIATRIC SOCIAL WORKER LATOSHA Attending Unavailable AICHHOLZ, PEDIATRIC SOCIAL WORKER LATOSHA Primary Care Unavailable RAMON HUNTLEY Attending Unavailable AICHHOLZ, PEDIATRIC SOCIAL WORKER LATOSHA Primary Care Unavailable RAMON HUNTLEY Admitting Unavailable BHARAT, DR NUBIA Carlos Consulting Unavailable RAMON HUNTLEY Consulting Unavailable AICHHOLZ, PEDIATRIC SOCIAL WORKER LATOSHA Primary Care Unavailable BHARAT, DR NUBIA Carlos Consulting Unavailable DIANA SEGURA Admitting Unavailable DIANA SEGURA Attending Unavailable DIANA SEGURA Consulting Unavailable AICHHOLZ, PEDIATRIC SOCIAL WORKER LATOSHA Primary Care Unavailable AICHHOLZ, PEDIATRIC SOCIAL WORKER LATOSHA Attending Unavailable AICHHOLZ, PEDIATRIC SOCIAL WORKER LATOSHA Admitting Unavailable WEST, DR NUBIA Carlos Consulting Unavailable AICHHOLZ, PEDIATRIC SOCIAL WORKER LATOSHA Consulting Unavailable AICHHOLZ, PEDIATRIC SOCIAL WORKER LATOSHA Primary Care Unavailable COLTON, DIANA Admitting Unavailable COLTON, DIANA Attending Unavailable MIGEL SEGURALY Consulting Unavailable AICHHOLZ, PEDIATRIC SOCIAL WORKER LATOSHA Primary Care Unavailable AICHHOLZ, PEDIATRIC SOCIAL WORKER LATOSHA Attending Unavailable AICHHOLZ, PEDIATRIC SOCIAL WORKER LATOSHA Consulting Unavailable AICHHOLZ, PEDIATRIC SOCIAL WORKER LATOSHA Admitting Unavailable AICHHOLZ, PEDIATRIC SOCIAL WORKER LATOSHA Primary Care Unavailable WEST, DR NUBIA Carlos Consulting Unavailable COLTON, DIANA Admitting Unavailable COLTON, DIANA Attending Unavailable COLTON, DIANA Consulting Unavailable AICHHOLZ, PEDIATRIC SOCIAL WORKER LATOSHA Primary Care Unavailable ADELIA, DR THANH García Consulting Unavailable HIGHLANDER, PETER D Attending Unavailable HIGHLANDER, PETER D Admitting Unavailable HIGHLANDER, PETER D Consulting Unavailable AICHHOLZ, PEDIATRIC SOCIAL WORKER LATOSHA Primary Care Unavailable FOSTER ., DR PAGE Admitting Unavailable FOSTER ., DR PAGE Attending Unavailable FOSTER ., DR PAGE Consulting Unavailable ZIEBER, DR THANH García Consulting Unavailable HIGHLANDER, PETER D Admitting Unavailable AICHHOLZ, PEDIATRIC SOCIAL WORKER LATOSHA Primary Care Unavailable ADELIA, DR THANH García Consulting Unavailable HIGHLANDER, PETER D Attending Unavailable HIGHLANDER, PETER D Consulting Unavailable AICHHOLZ, PEDIATRIC SOCIAL WORKER LATOSHA Primary Care Unavailable AICHHOLZ, PEDIATRIC SOCIAL WORKER LATOSHA Attending Unavailable AICHHOLZ, PEDIATRIC SOCIAL WORKER LATOSHA Consulting Unavailable AICHHOLZ, PEDIATRIC SOCIAL WORKER LATOSHA Admitting Unavailable ADELIA, DR THANH García Consulting Unavailable AICHHOLZ, PEDIATRIC SOCIAL WORKER LATOSHA Primary Care Unavailable ADELIA, DR THANH García Consulting Unavailable HIGHLANDER, PETER D Attending Unavailable HIGHLANDER, PETER D Admitting Unavailable HIGHLANDER, PETER D Consulting Unavailable AICHHOLZ, PEDIATRIC SOCIAL WORKER LATOSHA Primary Care Unavailable ADELIA, DR THANH García Consulting Unavailable COLTON, DIANA Admitting Unavailable COLTON, DIANA Attending Unavailable COLTON, DIANA Consulting Unavailable WANDY ., RAQUEL Admitting Unavailable WANDY ., RAQUEL Attending Unavailable KASIE CANDELARIO Consulting Unavailable GIDEON, DR PANDEY LISTED Primary Care Unavaila bartolome SABA ., RAQUEL Consulting Unavailable LYLE MATIAS Consulting Unavailable AICHHOLZ, PEDIATRIC SOCIAL WORKER LATOSHA Primary Care Unavailable EARL ., DR CARMONA Admitting Unavailable HAY ., DR CARMONA Attending Unavailable HAY ., DR CARMONA Consulting Unavailable TONY LUO Consulting Unavailable KLIPPNUBIA PAEZ Consulting Unavailable AICHHOLZ, [facility] LATOSHA Primary Care Unavailable HIGHLANDER, PETER D Admitting Unavailable HIGHLANDER, RAMON D Attending Unavailable HIGHLANDER, PETER D Admitting Unavailable AICHHOLZ, [facility] LATOSHA Primary Care Unavailable HIGHLANDER, PETER D Attending Unavailable HIGHLANDER, PETER D Admitting Unavailable AICHHOLZ, [facility] Primary Care Unavailable ZIEBER, DR THANH García Consulting Unavailable HIGHLANDER, RAMON D Attending Unavailable HIGHLANDER, RAMON D Consulting Unavailable HIGHLANDER, PETER D Admitting Unavailable AICHHOLZ, PEDIATRIC SOCIAL WORKER LATOSHA Primary Care Unavailable HIGHLANDER, RAMON D Attending Unavailable HIGHLANDER, RAMON D Attending Unavailable HIGHLANDER, PETER D Admitting Unavailable REQUEST, DR NONE LISTED Primary Care Unavaila ble HIGHLANDER, PETER D Admitting Unavailable AICHHOLZ, PEDIATRIC SOCIAL WORKER LATOSHA Primary Care Unavailable HIGHLANDER, RAMON D Attending Unavailable HIGHLANDER, PETER D Admitting Unavailable AICHHOLZ, [facility] Primary Care Unavailable HIGHLANDER, RAMON D [...] Practitioner Unava ilable TONY LUO Consulting Unavailable HIGHLANDER, RAMON Tillman Consulting Unavailable KWADWO MICHAELS Consulting Unavailable NUBIA BATEMAN Consulting Unavailable SCHNEBARTOLOME, GURU Consulting Unavailable FRED, LANDON Consulting Unavailable ROSELIA ., LISA JIMENEZ Consulting Unavailable GEMBUS, ROCAEL Consulting Unavailable SMALLWOOD, REJI FLORES Consulting Unavailable AICHHOLZ, [facility] Primary Care Unavailable WEST, DR NUBIA Carlos Consulting Unavailable DIANA SEGURA Admitting Unavailable DIANA SEGURA Attending Unavailable COLTONNENODIANA Consulting Unavailable HIGHLANDER, PETER D Admitting Unavailable AICHHOLZ, PEDIATRIC SOCIAL WORKER LATOSHA Primary Care Unavailable ZIEBER, DR THANH García Consulting Unavailable HIGHLANDER, RAMON Tillman Attending Unavailable HIGHLANDER, PETER D Consulting Unavailable FitaydenBrigette Unavailable Sara Augustine Unavailable Vern TAVERAS, Lisa Pulido Unavailable Latosha Olmstead Primary Care Provider [phone] TAURUS BALLARD Referring Unavailable MADINAALYTAURUS Referring Unavailable Aichholz Latosha MON Primary Care Provider Lisa Porras MD Unavailable TAURUS BALLARD Attending Unavailable ARUNA, TAURUS Attending Unavailable TAURUS BALLARD Admitting Unavailable PENNYHLATOSHA CASILLAS Attending Unavailable Sumi Lentz Primary Care Unavailable AichholLatosha salas Attending Unavailable AichholLatosha salas Admitting Unavailable SWETA LI Attending Unavailable AICHHOLLATOSHA Salas Referring Unavailable AICHHOLJosue, LATOSHA J Primary Care Unavailable SWETA LI Referring Unavailable AICHHOLZ, LATOSHA J Primary Care Unavailable RUTH JOE Jennifer Admitting Unavailable JOE PEDRO Attending Unavailable AICHLATOSHA CASILLAS Referring Unavailable AICHHOLZ, LATOSHA J Primary Care Unavailable RUTH JOE Jennifer Attending Unavailable JOE PEDRO Referring Unavailable AICHHOLZ, LATOSHA Watson Primary Care Unavailable RUTH JOE Jennifer Admitting Unavailable PEDROJOE PEDERSEN Attending Unavailable JOE PEDRO Referring Unavailable AICHHOLJosue, LATOSHA Watson Primary Care Unavailable JOE PEDRO Attending Unavailable PEDROJOE PEDERSEN Referring Unavailable AICHHOLZ, LATOSHA J Primary Care Unavailable KATEY DIAMOND Attending Unavailable AICHHOLZ LATOSHA J Primary Care Unavailable Lue Lisa MIrina Referring Unavailable Lue, Lisa M. Admitting Unavailable Lue, Lisa M. Attending Unavailable CATALINA, HEIDY E Attending Unavailable CATALINA, HEIDY E Admitting Unavailable CATALINA, HEIDY E Attending Unavailable CATALINA, HEIDY E Admitting Unavailable CATALINA, HEIDY E Attending Unavailable CATALINA, HEIDY E Admitting Unavailable CATALINA, HEIDY E Attending Unavailable AICHLATOSHA CASILLAS Attending Unavailable CATALINA, HEIDY E Attending Unavailable CATALINA, HEIDY E Attending Unavailable Lue, Lisa M. Attending Unavailable LATOSHA OLMSTEAD Attending Unavailable Lisa Porras Attending Unavailable Lisa Porras Attending Unavailable Lisa Porras Attending Unavailable Lisa Porras Referring Lisa Ledesma Attending Unavailable HEIDY ARNOLD Attending Unavailable Allergies Allergy Classification Reported Allergen(s) Allergy Type Date of Onset Reaction(s) Facility Latex (1 source) Latex Substance Allergy 0 Rash [facility] (20 sources) Latex; Translations: [Latex] Allergy to substance 0 Eruption of skin (disorder), Rash [facility] Medications Current Medications Medication Drug [...] oral tablet (20 sources) Opioid Agonist Start: 10-17-2023 take 1 tablet by mouth three times daily as needed for pain HYDROcodone-acetami nophen (NORCO) 7.5-325 mg per tablet Indications: Reflex sympathetic dystrophy of right upper extremity Take 1 tablet by mouth 3 (three) times a day as needed for pain. 90 tablet 0 10/17/2023 Active Start: 09-17-2023 take 1 tablet by rain th three times daily as needed for pain HYDROcodone-acetaminophen (NORCO) 7.5-32 5 mg per tablet Indications: Reflex sympathetic dystrophy of right upper extremity Take 1 tablet by mouth 3 (three) times a day as needed for pain. 90 tablet 0 09/17/2023 Active Start: 09-17-2023 take 1 tablet by rain th three times daily as needed for pain HYDROcodone-acetaminophen (NORCO) 7.5-32 5 mg per tablet Indications: Reflex sympathetic dystrophy of right upper extremity Take 1 tablet by mouth 3 (three) times a day as needed for pain. 90 tablet 0 09/17/2023 Active Start: 08-11-2023 End: 10-10-2023 take 1 tablet by mouth three times daily as needed for pain HYDROcodone-acetaminophen (NORCO) 7.5-32 5 mg per tablet Indications: Reflex sympathetic dystrophy of right upper extremity Take 1 tablet by mouth 3 (three) times a day as needed for pain. 90 tablet 0 08/11/2023 10/10/2023 Discontinued (Reorder) Start: 09-08-2022 acetaminophen- hydrocodone 325 mg-7.5 mg [...] rain th three times daily as needed. albuterol 0.83 mg/ml inhalation solution (11 sources) beta2-Adrenergic Agonist take 3 mL by inhalation in the morning as needed albuterol (PROVENTIL,VENTOLIN) 2.5 mg /3 mL (0.083 %) nebulizer solution Inhale 3 mL (2.5 mg total) by nebulization in the morning. And PRN. 0 Active take 2 puff(s) by in halation every six hours as needed for wheezing albuterol HFA (PROVENTIL HFA, VENTOLIN H FA) 90 mcg/actuation inhaler Inhale 2 Puffs as instructed every 6 hours as needed for wheezing/shortness of breath. 0 Active Comment on above: Inhale 2 Puffs as in structed every 6 hours as needed for wheezing/shortness of breath. AMBULATORY COMPOUNDED MEDICATION (2 sources) Start: 019 AMBULATORY COMPOUNDED MEDICATION Apply 120 g topically See Admin Instructions. Formula 8E Apply 1-2 grams topically to affected area three to four times daily 120 g 2 08/22/2018 Active amLODIPine 5 mg oral tablet (11 sources) Dihydropyridine Calcium Channel Renetta Start: amLODIPine 5 mg Tab Refills(s) 0 Start Date: 09/08/22 Status: Ordered Budesonide / formoterol (3 sources) Corticosteroid, beta2-Adrenergic Agonist take 2 puff(s) by inhalation three times daily as needed budesonide-formot Cristopher (SYMBICORT) 80-4.5 mcg/actuation inhaler Inhale 2 puffs [...] Comment on above: [facility] Dexcom G6 [...] on above: Take 1 capsule by mo [facility] two times a day. estradiol 0.1 mg/ml vaginal cream (6 sources) Estrogen Start: 05-03-2023 Estrace 0.1 mg /g Cream See Instructions, 42.5 gm, Refill(s) 3, apply pea size amount to urethra/inner vagina 3x/week x 1 month, then 2x/week for maintainence, [facility], 153, cm, 05/03/23 9:52:00 EDT, Height/Length Dosing, 59, kg, 05/03/23 9:52:00 EDT, Weight Dosing Start Date: 05/03/23 Status: Ordered ferrous sulfate 325 mg oral tablet (17 sources) Start: 04-16-2021 take 1 tablet by mouth in the morning ferrous sulfate 325 (65 FE) mg tablet Take 1 tablet (325 mg total) by mouth in the morning. 0 04/16/2021 Active Start: 04-16-2021 take 1 tablet by rain th three times daily at mealtime FEROSUL 325 mg (65 mg iron) tablet Take 1 tablet by mouth three times daily with meals. 0 04/16/2021 Active Comment on above: Take 1 tablet by rain th three times daily with meals. folic acid 1 mg oral tablet (11 sources) Start: 09-08-2022 folic acid 1 mg Tab Refills(s) 0 Start Date: 09/08/22 Status: Ordered Insulin Aspart FlexPen (10 sources) Start: 09-21-2022 Insulin Aspart FlexPen SubCutaneous, TIDAC, Refills(s) 0 Start Date: 09/21/22 Status: Ordered insulin aspart, human 100 unt/ml injectable solution (10 sources) Insulin Analog Start: 06-08-2017 insulin aspart [...] Directed Active lisinopril 10 mg oral tablet (2 sources) Angiotensin Converting Enzyme Inhibitor take 1 tablet by mouth in the morning lisinopriL (PRINIVIL,ZESTRIL) 10 mg tablet Take 1 tablet (10 mg total) by mouth in the morning. 0 Active metFORMIN hydrochloride 1000 mg oral tablet (2 sources) Biguanide take 1 tablet by mouth twice daily at mealtime metFORMIN (GLUCOPHAGE) 1000 mg tablet Take 1,000 mg by mouth 2 (two) times a day with meals. 0 Active 24 hr metoprolol succinate 25 mg extended release oral tablet (2 sources) beta-Adrenergic Renetta Start: take 1 tablet by [...] day(s), # 30 tab(s), Refills(s) 6, Pharmacy: [facility], 153, cm, 09/21/22 8:48:00 EST, Height/Length [...] day(s), # 30 tab(s), Refills(s) 6, Pharmacy: [facility], 153, cm, 09/13/22 13:38:00 EST, Height/Length Dosing, 52.5, kg, 09/13/22 13:38:00 EST, Weight Dosing Start Date: 09/13/22 Stop Date: 04/11/23 Status: Ordered potassium chloride 10 meq extended release oral capsule (11 sources) Start: 023 potassium chloride 10 mEq Cap-ER Refills(s) 0 Start Date: 09/08/22 Status: Ordered pregabalin 150 mg oral capsule (20 sources) Start: 024 pregabalin (LYRICA) 150 mg capsule Indications: Complex regional pain syndrome type 1 of right upper extremity Take 1 capsule (150 mg total) by mouth in the morning and 1 capsule (150 mg total) at noon and 1 capsule (150 mg total) in the evening. 90 capsule 1 10/13/2023 Active Start: 08-11-2023 End: 10-10-2023 take 1 capsule by mouth twice daily [...] three times daily. Take 1 capsule by mo ut two times a day for 30 days. trospium chloride 20 mg oral tablet (4 sources) Cholinergic Muscarinic Antagonist Start: 02-22-2023 take 1 tablet by mouth once daily trospium 20 mg oral tablet 20 mg = 1 tab(s), Oral, Daily, # 30 tab(s), Refills(s) 11, Pharmacy: [employer] [facility] [employer], 153, cm, 02/22/23 8:55:00 EDT, Height/Length Dosing, 52.5, kg, 02/22/23 8:55:00 EDT, Weight Dosing Start Date: 02/22/23 Status: Ordered vitamin b12 1 mg extended release oral tablet (17 sources) Vitamin B12 Start: 06-14-2023 take 1 tablet by mouth in the morning cyanocobalamin, vitamin B-12, (VITAMIN B-12) 1,000 mcg tablet extended release Take 1 tablet (1 mg total) by mouth in the morning. 0 06/14/2023 Active Start: 04-11-2023 take 1 tablet by rain th once daily Start: 04-11-2023 take 1 tablet by rain th once daily Cyanocobalamin ER 1000 MCG 1 tablet Orally Once a day for 90 days Mar, Active Start: 04-16-2021 take 1 tablet by rain th once daily VITAMIN B-12 1,000 mcg tab Take 1,000 mcg by mouth once daily. 0 04/16/2021 Active Comment on above: Take 1,000 mcg by mo [facility] once daily. Completed/Discontinued Medications Medication Drug Class(es) Dates Sig (Normalized) Sig (Original) insulin glargine 100 unt/ml injectable solution (20 sources) Insulin Analog Start: 01-21-2021 inject 25 [...] 11-03-2021 09-08-2022 Chronic Diabetes mellitus without complication (1 source) Diabetes [...] sources) Long-term current use of insulin; Translations: [manager long term care (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] Episodic Other aftercare (3 sources) manager long term care (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; Translations: [RETIREMENT CURRENT USE OF INSULIN] Onset: 08-09-2022 Episodic [...] 06-06-2023 06-06-2023 Chronic Other nervous system disorders (9 sources) Complex regional pain syndrome type I [...] [FOLATE DEFICIENCY ANEMIA UNS] Onset: 07-25-2022 Episodic Diabetes mellitus without complication (16 sources) Glycosuria; Translations: [Glycosuria] Onset: 08-13-2020 Episodic E Codes: Natural/environment (1 source) Exposure [...] Episodic Other aftercare (1 source) Other terminal gauger (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; Translations: [OTH RETIREMENT CURRENT DRUG THERAPY] Onset: 08-09-2022 Episodic Other aftercare (2 sources) Admission statuses; Translations: [FCI (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 of opiate analgesic] Onset: 03-15-2022 03-15-2022 Episodic Other aftercare (1 source) FCI (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 of opiate analgesic; Translations: [FCI (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 of opiate analgesic] Onset: 03-15-2022 [...] Episodic Other diseases of kidney and ureters (13 sources) Cyst of kidney; Translations: [Cyst of [...] Range Facility Glucose Glucometer (BldC) [M ass/Vol]on 10-13-2023 Glucose [Mass/Vol] 276 mg/dL High 65-99 [facility] Glucose Glucometer (BldC) [M ass/Vol]on 09-29-2023 Glucose [Mass/Vol] 356 mg/dL High 65-99 [facility] CNPOlivia 09-27-2023 KIARAN Telephone (FVPRAD) AISLINN WHEELER ([id number]) 1960 F Date Time Provider Department 09/27/23 ROSIE BUCKNER FVPRAD During your visit today, we recorded the following information about you: Rosie Buckner, Research Coordinator 09/27/2023 2:33 PM Signed IRB# [id number]: Vascular events in patients undergoing same-day nonCardiac surgery - [facility] PI: Mary Rojas MD, LETY, FASA. Outcomes Research Department. Anesthesia Watson. [facility]. Aislinn Wheeler was unavailable at the listed phone number. We will attempt to contact the patient through Beaming message. Rosie Esqueda, Research Coordinator Research Coordinator Allergies As of Date: 09/27/2023 Noted Allergy Reaction LATEX 02/05/2020 2 - Rash Comments: Added based on information entered during case entry, please review and add reactions, type, and severity as needed Date Reviewed: 09/03/2023 Reviewed by: Chuck Kirk RN - Fully Assessed Reason for Visit: Research F/U [148] Prescriptions as of 09/27/2023 - pregabalin (LYRICA) [...] Encounter Status:Closed by ROSIE BUCKNER on 09/27/23 [facility] 09-26-2023 [facility] Telephone (FVPRAD) LIAMAISLINN ([id number]) 1960 F Date Time Provider Department 09/26/23 ROSIE BUCKNER FVPRAD During your visit today, we recorded the following information about you: Rosie Buckner, Research Coordinator 09/26/2023 3:32 PM Signed IRB# [id number]: Vascular events in patients undergoing same-day nonCardiac surgery - [facility] PI: Mary Rojas MD, LETY, FASA. Outcomes Research Department. Anesthesia Watson. [facility]. Aislinn Pulido Liam was unavailable at the listed phone number. We will attempt to contact the patient again at a later date. Rosie Esqueda, Research Coordinator Research Coordinator Allergies As of Date: 09/26/2023 Noted Allergy Reaction LATEX 02/05/2020 2 - Rash Comments: Added based on information entered during case entry, please review and add reactions, type, and severity as needed Date Reviewed: 09/03/2023 Reviewed by: Chuck Kirk, REY - Fully Assessed Reason for Visit: Research F/U [614] Prescriptions as of 09/26/2023 - pregabalin (LYRICA) [...] Encounter Status:Closed by ROSIE BUCKNER on 09/26/23 [facility] CNDSon 09-04-2023 CNDS HNO ID: [id number] Author: ANTHONY BARROW MD Service: Hospital Medicine [...] Time Provider Department Center 10/06/2023 1:[address] [facility] BRITTANIESahara [facility] Brittanie 10/06/2023 2:00 PM [facility] [place] [facility] Brittanie 10/11/2023 1:50 PM Taurus Ballard MD [facility] ALLERGIES Allergen Reactions Latex Rash Added based [...] U-100 INSULIN SUBCUTANEO (more content not included)... Normal [facility] ALLIED HEALTHon 09-03-2023 ALLIED HEALTH HNO ID: [id number] Author: NICOL MILLIGAN RT(R) Service: Radiology Author [...] RT Michael(R) September 03, 2023 2:57 PM [facility] Basic metabolic 2000 panelon 09-03-2023 Anion gap [Moles/Vol] 10 mmol/L Normal 9-18 [facility] Comment on above: Order Comment: Speci men Type: BLOOD SPECIMEN Ordering Facility: [facility] Address: [address] [place] [address] Performed By: #### 2 4321-2 #### [facility] CLIA [id number] [address] [place] [address] [place] Calcium [Mass/Vol] 8.8 mg/dL Normal 8.5-10.2 [facility] Comment on above: Order Comment: Speci men Type: BLOOD SPECIMEN Ordering Facility: [facility] Address: [address] [place] [address] Performed By: #### 2 4321-2 #### [facility] CLIA [id number] [address] [place] [address] [place] Chloride [Moles/Vol] 103 mmol/L Normal 97-105 [facility] Comment on above: Order Comment: Speci men Type: BLOOD SPECIMEN Ordering Facility: [facility] Address: [address] [place] [address] Performed By: #### 2 4321-2 #### [facility] CLIA [id number] [address] [place], [place] [id number] [place] CO2 [Moles/Vol] 23 mmol/L Normal 22-30 [facility] Comment on above: Order Comment: Speci men Type: BLOOD SPECIMEN Ordering Facility: [facility] Address: [address] [place] [address] Performed By: #### 2 4321-2 #### [facility] CLIA [id number] [address] [place] [address] [place] Creatinine [Mass/Vol] 1.29 mg/dL High 0.58-0.96 [facility] Comment on above: Order Comment: Speci men Type: BLOOD SPECIMEN Ordering Facility: [facility] Address: [address] [place] [address] Performed By: #### 2 4321-2 #### [facility] CLIA [id number] [address] [place] [address] [place] Creatinine and Glomerular filtration rate.predicted panel (S/P/Bld) 46 mL/min/1.73m??? Low >=60 [facility] Comment on above: Order Comment: Speci men Type: BLOOD SPECIMEN Ordering Facility: [facility] Address: [address] [place] [address] Result Comment: Donna mated Glomerular Filtration Rate [...] GFR. Performed By: #### 2 4321-2 #### [facility] CLIA [id number] [place] [address] [place] Glucose [Mass/Vol] 123 mg/dL High 74-99 [facility] Comment on above: Order Comment: Speci men Type: BLOOD SPECIMEN Ordering Facility: [facility] Address: [address] [place] [address] Result Comment: The [place] [employer] Association (ADA) provides guidance for cutoff [...] Standards of Medical Care in Diabetes 2016, [place] [employer]. Diabetes Care. 2016.39(Suppl 1). Performed By: #### 2 4321-2 #### [facility] CLIA [id number] [address] [place] [address] [place] Potassium [Moles/Vol] 5.0 mmol/L Normal 3.7-5.1 [facility] Comment on above: Order Comment: Speci men Type: BLOOD SPECIMEN Ordering Facility: [facility] Address: [address] [place] [address] Performed By: #### 2 4321-2 #### [facility] CLIA [id number] [address] [place] [address] [place] Sodium [Moles/Vol] 136 mmol/L Normal 136-144 [facility] Comment on above: Order Comment: Speci men Type: BLOOD SPECIMEN Ordering Facility: [facility] Address: [address] [place] [address] Performed By: #### 2 4321-2 #### [facility] CLIA [id number] [address] [place] [address] [place] Urea nitrogen [Mass/Vol] 22 mg/dL High 7-21 [facility] Comment on above: Order Comment: Speci men Type: BLOOD SPECIMEN Ordering Facility: [facility] Address: [address] [place] [address] Performed By: #### 2 4321-2 #### [facility] CLIA [id number] [address] CBC panel Auto (Bld)on 09-03 Erythrocyte distribution width (RBC) [Ratio] 14.6 % Normal 11.5-15.0 [facility] Comment on above: Order Comment: Speci men Type: VENOUS BLOOD SPECIMEN Ordering Facility: [facility] Address: [address] [place] [address] Performed By: #### 2 4344-4 #### [facility] CLIA [id number] [address] [address] STATES OF [facility] Hematocrit (Bld) [Volume fraction] 28.7 % Low 36.0-46.0 [facility] Comment on above: Order Comment: Speci men Type: VENOUS BLOOD SPECIMEN Ordering Facility: [facility] Address: [address] [place] [address] Performed By: #### 2 4344-4 #### [facility] CLIA [id number] [address] [place] [address] [place] Hemoglobin (Bld) [Mass/Vol] 8.9 g/dL Low 11.5-15.5 [facility] Comment on above: Order Comment: Speci men Type: VENOUS BLOOD SPECIMEN Ordering Facility: [facility] Address: [address] [place] [address] Performed By: #### 2 4344-4 #### [facility] CLIA [id number] [address] [address] STATES [facility] MCH (RBC) [Entitic mass] 24.1 pg Low 26.0-34.0 [facility] Comment on above: Order Comment: Speci men Type: VENOUS BLOOD SPECIMEN Ordering Facility: [facility] Address: [address] [place] [address] Performed By: #### 2 4344-4 #### [facility] CLIA [id number] [address] [address] [place] MCHC (RBC) [Mass/Vol] 31.0 g/dL Normal 30.5-36.0 [facility] Comment on above: Order Comment: Speci men Type: VENOUS BLOOD SPECIMEN Ordering Facility: [facility] Address: [address] [place] [address] Performed By: #### 2 4344-4 #### [facility] CLIA [id number] [address] [place] [address] [place] MCV (RBC) [Entitic vol] 77.6 fL Low 80.0-100.0 [facility] Comment on above: Order Comment: Speci men Type: VENOUS BLOOD SPECIMEN Ordering Facility: [facility] Address: [address] [place] [address] Performed By: #### 2 4344-4 #### [facility] CLIA [id number] [address] [place] [address] [place] Nucleated RBC (Bld) [#/Vol] 10*3/uL Normal <0.01 [facility] Comment on above: Order Comment: Speci men Type: VENOUS BLOOD SPECIMEN Ordering Facility: [facility] Address: [address] [place] [address] Performed By: #### 2 4344-4 #### [facility] CLIA [id number] [address] [place] [address] [place] Platelet mean volume (Bld) [Entitic vol] 10.8 fL Normal 9.0-12.7 [facility] Comment on above: Order Comment: Speci men Type: VENOUS BLOOD SPECIMEN Ordering Facility: [facility] Address: [address] [place] [address] Performed By: #### 2 4344-4 #### [facility] CLIA [id number] [address] [place] [address] [place] Platelets (Bld) [#/Vol] 334 10*3/uL Normal 150-400 [facility] Comment on above: Order Comment: Speci men Type: VENOUS BLOOD SPECIMEN Ordering Facility: [facility] Address: [address] [place] [address] Performed By: #### 2 4344-4 #### [facility] CLIA [id number] [address] [place] [address] [place] RBC (Bld) [#/Vol] 3.70 10*6/uL Low 3.90-5.20 [facility] Comment on above: Order Comment: Speci men Type: VENOUS BLOOD SPECIMEN Ordering Facility: [facility] Address: [address] [place] [id number] Performed By: #### 2 4344-4 #### [facility] CLIA [id number] [address] [place] [id number] [place] WBC (Bld) [#/Vol] 6.44 10*3/uL Normal 3.70-11.00 [facility] Comment on above: Order Comment: Speci men Type: VENOUS BLOOD SPECIMEN Ordering Facility: [facility] Address: [address] [place] [id number] Performed By: #### 2 4344-4 #### [facility] CLIA [id number] [address] [place] [id number] [place] CT FOOT WO IVCON [...] NO EVIDENCE OF OSTEOMYELITIS ON THIS EXAMINATION. Granite Installer: GUILLE Transcribe Date/Time: Sep 03 2023 11:22P Dictated by : FINESSE BUTLER MD This examination was interpreted and the report reviewed and electronically signed by: FINESSE BUTLER MD on Sep 03 2023 11:27PM EST [id number] Normal [facility] Basic metabolic 2000 panelon 09-02-2023 Anion gap [Moles/Vol] 9 mmol/L Normal 9-18 [facility] Comment on above: Order Comment: Speci men Type: BLOOD SPECIMEN Ordering Facility: [facility] Address: [address] [place] [address] Performed By: #### 2 4321-2 #### [facility] CLIA [id number] [address] [place] [address] [place] Calcium [Mass/Vol] 8.1 mg/dL Low 8.5-10.2 [facility] Comment on above: Order Comment: Speci men Type: BLOOD SPECIMEN Ordering Facility: [facility] Address: [address] [place] [address] Performed By: #### 2 4321-2 #### [facility] CLIA [id number] [address] [place] [address] [place] Chloride [Moles/Vol] 106 mmol/L High 97-105 [facility] Comment on above: Order Comment: Speci men Type: BLOOD SPECIMEN Ordering Facility: [facility] Address: [address] [place] [address] Performed By: #### 2 4321-2 #### [facility] CLIA [id number] [address] [place] [address] [place] CO2 [Moles/Vol] 22 mmol/L Normal 22-30 [facility] Comment on above: Order Comment: Speci men Type: BLOOD SPECIMEN Ordering Facility: [facility] Address: [address] [place] [address] Performed By: #### 2 4321-2 #### [facility] CLIA [id number] [address] [place] [address] [place] Creatinine [Mass/Vol] 1.30 mg/dL High 0.58-0.96 [facility] Comment on above: Order Comment: Speci men Type: BLOOD SPECIMEN Ordering Facility: [facility] Address: [address] [place] [address] Performed By: #### 2 4321-2 #### [facility] CLIA [id number] [address] [place] [address] [place] Creatinine and Glomerular filtration rate.predicted panel (S/P/Bld) 46 mL/min/1.73m??? Low >=60 [facility] Comment on above: Order Comment: [place] Type: BLOOD SPECIMEN Ordering Facility: [facility] Address: [address] [place] [address] Result Comment: Donna mated Glomerular Filtration Rate [...] GFR. Performed By: #### 2 4321-2 #### [facility] CLIA [id number] [place] [address] [place] Glucose [Mass/Vol] 192 mg/dL High 74-99 [facility] Comment on above: Order Comment: [place] Type: BLOOD SPECIMEN Ordering Facility: [facility] Address: [address] [place] [address] Result Comment: The [place] [employer] (ADA) provides guidance for cutoff [...] Standards of Medical Care in Diabetes 2016, [employer] [employer]. Diabetes Care. 2016.39(Suppl 1). Performed By: #### 2 4321-2 #### [facility] CLIA [id number] [address] [place] [address] [place] Potassium [Moles/Vol] 4.9 mmol/L Normal 3.7-5.1 [facility] Comment on above: Order Comment: Speci men Type: BLOOD SPECIMEN Ordering Facility: [facility] Address: [address] [place] [address] Performed By: #### 2 4321-2 #### [facility] CLIA [id number] [address] [place] [address] [place] [facility] Sodium [Moles/Vol] 137 mmol/L Normal 136-144 [facility] Comment on above: Order Comment: Speci men Type: BLOOD SPECIMEN Ordering Facility: [facility] Address: [address] [place] [address] Performed By: #### 2 4321-2 #### [facility] CLIA [id number] [address] [place] [address] [place] Urea nitrogen [Mass/Vol] 17 mg/dL Normal 7-21 [facility] Comment on above: Order Comment: Speci men Type: BLOOD SPECIMEN Ordering Facility: [facility] Address: [address] [place] [address] Performed By: #### 2 4321-2 #### [facility] CLIA [id number] [address] [place] [address] [place] CBC panel Auto (Bld)on 09-02 Erythrocyte distribution width (RBC) [Ratio] 14.6 % Normal 11.5-15.0 [facility] Comment on above: Order Comment: Speci men Type: VENOUS BLOOD SPECIMEN Ordering Facility: [facility] Address: [address] [place] [address] Performed By: #### 2 4344-4 #### [facility] CLIA [id number] [address] [place] [address] [place] Hematocrit (Bld) [Volume fraction] 28.4 % Low 36.0-46.0 [facility] Comment on above: Order Comment: Speci men Type: VENOUS BLOOD SPECIMEN Ordering Facility: [facility] Address: [address] [place] [address] Performed By: #### 2 4344-4 #### [facility] CLIA [id number] [address] [place] [address] [place] Hemoglobin (Bld) [Mass/Vol] 8.9 g/dL Low 11.5-15.5 [facility] Comment on above: Order Comment: Speci men Type: VENOUS BLOOD SPECIMEN Ordering Facility: [facility] Address: [address] [place] [address] Performed By: #### 2 4344-4 #### [facility] CLIA [id number] [address] [place] [address] [place] MCH (RBC) [Entitic mass] 24.2 pg Low 26.0-34.0 [facility] Comment on above: Order Comment: Speci men Type: VENOUS BLOOD SPECIMEN Ordering Facility: [facility] Address: [address] [place] [address] Performed By: #### 2 4344-4 #### [facility] CLIA [id number] [address] [place] [address] [place] MCHC (RBC) [Mass/Vol] 31.3 g/dL Normal 30.5-36.0 [facility] Comment on above: Order Comment: Speci men Type: VENOUS BLOOD SPECIMEN Ordering Facility: [facility] Address: [address] [place] [address] Performed By: #### 2 4344-4 #### [facility] CLIA [id number] [address] [place] [address] [place] MCV (RBC) [Entitic vol] 77.2 fL Low 80.0-100.0 [facility] Comment on above: Order Comment: Speci men Type: VENOUS BLOOD SPECIMEN Ordering Facility: [facility] Address: [address] [place] [address] Performed By: #### 2 4344-4 #### [facility] CLIA [id number] [address] [place] [address] [place] Nucleated RBC (Bld) [#/Vol] 10*3/uL Normal <0.01 [facility] Comment on above: Order Comment: Speci men Type: VENOUS BLOOD SPECIMEN Ordering Facility: [facility] Address: [address] [place] [address] Performed By: #### 2 4344-4 #### [facility] CLIA [id number] [address] [place] [address] [place] Platelet mean volume (Bld) [Entitic vol] 10.4 fL Normal 9.0-12.7 [facility] Comment on above: Order Comment: Speci men Type: VENOUS BLOOD SPECIMEN Ordering Facility: [facility] Address: [address] [place] [address] Performed By: #### 2 4344-4 #### [facility] CLIA [id number] [address] [place] [address] [place] Platelets (Bld) [#/Vol] 285 10*3/uL Normal 150-400 [facility] Comment on above: Order Comment: Speci men Type: VENOUS BLOOD SPECIMEN Ordering Facility: [facility] Address: [address] [place] [address] Performed By: #### 2 4344-4 #### [facility] CLIA [id number] [address] [place] [address] [place] RBC (Bld) [#/Vol] 3.68 10*6/uL Low 3.90-5.20 [facility] Comment on above: Order Comment: Speci men Type: VENOUS BLOOD SPECIMEN Ordering Facility: [facility] Address: [address] [place] [address] Performed By: #### 2 4344-4 #### [facility] CLIA [id number] [address] [place] [address] [place] WBC (Bld) [#/Vol] 5.94 10*3/uL Normal 3.70-11.00 [facility] Comment on above: Order Comment: Speci men Type: VENOUS BLOOD SPECIMEN Ordering Facility: [facility] Address: [address] [place] [address] Performed By: #### 2 4344-4 #### [facility] CLIA [id number] [address] [place] [address] [place] Bacteria Ur Culton 4 Bacteria identified Cx Nom (U) CULTURE, URINE: No growth (<1,000 CFU/ml) Normal [facility] Comment on above: Performed By: #### 6 30-4 #### [facility] CLIA [id number] [address] [facility] [id number] [address] [place] Basic metabolic 2000 panelon 09-01-2023 Anion gap [Moles/Vol] 10 mmol/L Normal 9-18 [facility] Comment on above: Order Comment: Speci men Type: VENOUS BLOOD SPECIMEN Ordering Facility: [facility] Address: [address] [place] [address] Performed By: #### 2 4344-4 #### [facility] CLIA [id number] [place] [address] [place] Calcium [Mass/Vol] 7.9 mg/dL Low 8.5-10.2 [facility] Comment on above: Order Comment: Speci men Type: VENOUS BLOOD SPECIMEN Ordering Facility: [facility] Address: [address] [place] [address] Performed By: #### 2 4344-4 #### [facility] CLIA [id number] [address] [place] [address] [place] Chloride [Moles/Vol] 108 mmol/L High 97-105 [facility] Comment on above: Order Comment: Speci men Type: VENOUS BLOOD SPECIMEN Ordering Facility: [facility] Address: [address] [place] [address] Performed By: #### 2 4344-4 #### [facility] CLIA [id number] [address] [place] [address] [place] CO2 [Moles/Vol] 20 mmol/L Low 22-30 [facility] Comment on above: Order Comment: Speci men Type: VENOUS BLOOD SPECIMEN Ordering Facility: [facility] Address: [address] [place] [address] Performed By: #### 2 4344-4 #### [facility] CLIA [id number] [address] [place] [address] [place] Creatinine [Mass/Vol] 1.39 mg/dL High 0.58-0.96 [facility] Comment on above: Order Comment: Speci men Type: VENOUS BLOOD SPECIMEN Ordering Facility: [facility] Address: [address] [place] [address] Performed By: #### 2 4344-4 #### [facility] CLIA [id number] [address] [place] [address] [place] Creatinine and Glomerular filtration rate.predicted panel (S/P/Bld) 42 mL/min/1.73m??? Low >=60 [facility] Comment on above: Order Comment: Diallo reinier Type: VENOUS BLOOD SPECIMEN Ordering Facility: [facility] Address: [address] [place] [address] Result Comment: Donna mated Glomerular Filtration Rate [...] GFR. Performed By: #### 2 4344-4 #### [facility] CLIA [id number] [place] [address] [place] Glucose [Mass/Vol] 74 mg/dL Normal 74-99 [facility] Comment on above: Order Comment: Specangelique [place] Type: VENOUS BLOOD SPECIMEN Ordering Facility: [facility] Address: [place] [address] Result Comment: The [place] Diabetes [employer] (ADA) provides guidance for cutoff [...] Standards of Medical Care in Diabetes 2016, [place] [employer]. Diabetes Care. 2016.39(Suppl 1). Performed By: #### 2 4344-4 #### [facility] CLIA [id number] [address] [place] [id number] [place] Potassium [Moles/Vol] 4.7 mmol/L Normal 3.7-5.1 [facility] Comment on above: Order Comment: Speci men Type: VENOUS BLOOD SPECIMEN Ordering Facility: [facility] Address: [address] [place] [address] Performed By: #### 2 4344-4 #### [facility] CLIA [id number] [address] [place] [address] [place] Sodium [Moles/Vol] 138 mmol/L Normal 136-144 [facility] Comment on above: Order Comment: Speci men Type: VENOUS BLOOD SPECIMEN Ordering Facility: [facility] Address: [address] [place] [address] Performed By: #### 2 4344-4 #### [facility] CLIA [id number] [address] [place] [address] [place] Urea nitrogen [Mass/Vol] 25 mg/dL High 7-21 [facility] Comment on above: Order Comment: Speci men Type: VENOUS BLOOD SPECIMEN Ordering Facility: [facility] Address: [address] [place] [address] Performed By: #### 2 4344-4 #### [facility] CLIA [id number] [address] [place] [address] [place] CBC panel Auto (Bld)on 09-01 Erythrocyte distribution width (RBC) [Ratio] 14.7 % Normal 11.5-15.0 [facility] Comment on above: Order Comment: Speci men Type: BLOOD SPECIMEN Ordering Facility: [facility] Address: [address] [place] [address] Performed By: #### 2 4321-2 #### [facility] CLIA [id number] [address] [place] [address] [place] Hematocrit (Bld) [Volume fraction] 29.4 % Low 36.0-46.0 [facility] Comment on above: Order Comment: Speci men Type: BLOOD SPECIMEN Ordering Facility: [facility] Address: [address] [place] [address] Performed By: #### 2 4321-2 #### [facility] CLIA [id number] [place] [address] [place] Hemoglobin (Bld) [Mass/Vol] 9.1 g/dL Low 11.5-15.5 [facility] Comment on above: Order Comment: Speci men Type: BLOOD SPECIMEN Ordering Facility: [facility] Address: [address] [place] [address] Performed By: #### 2 4321-2 #### [facility] CLIA [id number] [address] [place] [address] [place] MCH (RBC) [Entitic mass] 24.4 pg Low 26.0-34.0 [facility] Comment on above: Order Comment: Speci men Type: BLOOD SPECIMEN Ordering Facility: [facility] Address: [address] [place] [address] Performed By: #### 2 4321-2 #### [facility] CLIA [id number] [address] [place] [address] [place] MCHC (RBC) [Mass/Vol] 31.0 g/dL Normal 30.5-36.0 [facility] Comment on above: Order Comment: Speci men Type: BLOOD SPECIMEN Ordering Facility: [facility] Address: [address] [place] [address] Performed By: #### 2 4321-2 #### [facility] CLIA [id number] [address] [place] [address] [place] MCV (RBC) [Entitic vol] 78.8 fL Low 80.0-100.0 [facility] Comment on above: Order Comment: Speci men Type: BLOOD SPECIMEN Ordering Facility: [facility] Address: [address] [place] [address] Performed By: #### 2 4321-2 #### [facility] CLIA [id number] [address] [place] [address] [place] Nucleated RBC (Bld) [#/Vol] 10*3/uL Normal <0.01 [facility] Comment on above: Order Comment: Speci men Type: BLOOD SPECIMEN Ordering Facility: [facility] Address: [address] [place] [address] Performed By: #### 2 4321-2 #### [facility] CLIA [id number] [place] [address] [place] Platelet mean volume (Bld) [Entitic vol] 10.8 fL Normal 9.0-12.7 [facility] Comment on above: Order Comment: Speci men Type: BLOOD SPECIMEN Ordering Facility: [facility] Address: [address] [place] [address] Performed By: #### 2 4321-2 #### [facility] CLIA [id number] [address] [place] [address] [place] Platelets (Bld) [#/Vol] 275 10*3/uL Normal 150-400 [facility] Comment on above: Order Comment: Speci men Type: BLOOD SPECIMEN Ordering Facility: [facility] Address: [address] [place] [address] Performed By: #### 2 4321-2 #### [facility] CLIA [id number] [address] [place] [address] [place] RBC (Bld) [#/Vol] 3.73 10*6/uL Low 3.90-5.20 [facility] Comment on above: Order Comment: Speci men Type: BLOOD SPECIMEN Ordering Facility: [facility] Address: [address] [place] [address] Performed By: #### 2 4321-2 #### [facility] CLIA [id number] [address] [place] [address] [place] WBC (Bld) [#/Vol] 7.48 10*3/uL Normal 3.70-11.00 [facility] Comment on above: Order Comment: Speci men Type: BLOOD SPECIMEN Ordering Facility: [facility] Address: [address] [place] [address] Performed By: #### 2 4321-2 #### [facility] CLIA [id number] [address] [place] [address] [place] CONSULTon 09-01-2023 CONSULT HNO ID: [id number] Author: MAR ROUSSEAU RN Service: ? Author [...] 2023 TIME: 10:44 AM PAGER/CONTACT #: Normal [facility] Magnesium SerPl-mCncon 09-01 Magnesium [Mass/Vol] 1.5 mg/dL Low 1.7-2.3 [facility] Comment on above: Order Comment: Speci men Type: VENOUS BLOOD SPECIMEN Ordering Facility: [facility] Address: [address] [place] [address] Performed By: #### 2 4344-4 #### [facility] CLIA [id number] [address] [place] [address] [place] URINALYSIS, REFLEX MICROSCOP ICon 09-01-2023 Bacteria LM.HPF (Urine sed) [#/Area] Few Abnormal None Seen [facility] Comment on above: Order Comment: Speci men Type: VENOUS BLOOD SPECIMEN Ordering Facility: [facility] Address: [address] [place] [address] Performed By: #### 2 4344-4 #### [facility] CLIA [id number] [address] [place] [address] [place] Bilirubin Ql (U) Negative Normal Negative [facility] Comment on above: Order Comment: Speci men Type: VENOUS BLOOD SPECIMEN Ordering Facility: [facility] Address: [address] [place] [address] Performed By: #### 2 4344-4 #### [facility] CLIA [id number] [address] [place] [address] [place] Clarity (Unsp spec) Turbid Abnormal Clear [facility] Comment on above: Order Comment: Speci men Type: VENOUS BLOOD SPECIMEN Ordering Facility: [facility] Address: [address] [place] [address] Performed By: #### 2 4344-4 #### [facility] CLIA [id number] [address] [place] [address] [place] Color (U) Light Yellow Normal Yellow [facility] Comment on above: Order Comment: Speci men Type: VENOUS BLOOD SPECIMEN Ordering Facility: [facility] Address: [address] [place] [address] Performed By: #### 2 4344-4 #### [facility] CLIA [id number] [address] [place] [address] [place] Epithelial cells LM.HPF (Urine sed) [#/Area] Few Normal [facility] Comment on above: Order Comment: Speci men Type: VENOUS BLOOD SPECIMEN Ordering Facility: [facility] Address: [address] [place] [address] Performed By: #### 2 4344-4 #### [facility] CLIA [id number] [address] [address] [place] Glucose Test strip (U) [Mass/Vol] Negative Normal Trace, Negative [facility] Comment on above: Order Comment: Speci men Type: VENOUS BLOOD SPECIMEN Ordering Facility: [facility] Address: [address] [place] [address] Performed By: #### 2 4344-4 #### [facility] CLIA [id number] [address] [place] [address] [place] Hemoglobin Ql (U) 1+ Abnormal Negative, Trace [facility] Comment on above: Order Comment: Speci men Type: VENOUS BLOOD SPECIMEN Ordering Facility: [facility] Address: [address] [place] [address] Performed By: #### 2 4344-4 #### [facility] CLIA [id number] [address] [place] [address] [place] Ketones Ql (U) Negative Normal Negative, Trace [facility] Comment on above: Order Comment: Speci men Type: VENOUS BLOOD SPECIMEN Ordering Facility: [facility] Address: [address] [place] [address] Performed By: #### 2 4344-4 #### [facility] CLIA [id number] [address] [place] [address] [place] Leukocyte esterase Test strip Ql (U) 500 Yuan/uL Abnormal Negative, 25 Yuan/uL [facility] Comment on above: Order Comment: Speci men Type: VENOUS BLOOD SPECIMEN Ordering Facility: [facility] Address: [address] [place] [address] Performed By: #### 2 4344-4 #### [facility] CLIA [id number] [address] [place] [address] [place] Nitrite Ql (U) Negative Normal Negative [facility] Comment on above: Order Comment: Speci men Type: VENOUS BLOOD SPECIMEN Ordering Facility: [facility] Address: [address] [place] [address] Performed By: #### 2 4344-4 #### [facility] CLIA [id number] [address] [place] [address] [place] pH (U) 6.0 [pH] Normal 5.0-8.0 [facility] Comment on above: Order Comment: Speci men Type: VENOUS BLOOD SPECIMEN Ordering Facility: [facility] Address: [address] [place] [address] Performed By: #### 2 4344-4 #### [facility] CLIA [id number] [address] [place] [address] [place] Protein (U) [Mass/Vol] 1+ Abnormal Trace, Negative [facility] Comment on above: Order Comment: Speci men Type: VENOUS BLOOD SPECIMEN Ordering Facility: [facility] Address: [address] [place] [address] Performed By: #### 2 4344-4 #### [facility] CLIA [id number] [address] [place] [address] [place] RBC LM.HPF (Urine sed) [#/Area] /[HPF] Abnormal 0-3 /HPF [facility] Comment on above: Order Comment: Speci men Type: VENOUS BLOOD SPECIMEN Ordering Facility: [facility] Address: [address] [place] [address] Performed By: #### 2 4344-4 #### [facility] CLIA [id number] [address] [place] [address] [place] Specific gravity (U) [Rel density] 1.011 Normal 1.005-1.030 [facility] Comment on above: Order Comment: Speci men Type: VENOUS BLOOD SPECIMEN Ordering Facility: [facility] Address: [address] [place] [address] Performed By: #### 2 4344-4 #### [facility] CLIA [id number] [place] [address] [place] Urobilinogen Ql (U) Negative Normal Negative [facility] Comment on above: Order Comment: Speci men Type: VENOUS BLOOD SPECIMEN Ordering Facility: [facility] Address: [address] [place] [address] Performed By: #### 2 4344-4 #### [facility] CLIA [id number] [address] [place] [address] [place] WBC LM.HPF (Urine sed) [#/Area] /[HPF] Abnormal 0-5 /HPF [facility] Comment on above: Order Comment: Speci men Type: VENOUS BLOOD SPECIMEN Ordering Facility: [facility] Address: [address] [place] [address] Performed By: #### 2 4344-4 #### [facility] CLIA [id number] [address] [place] [address] [place] ALLIED HEALTHon 08-31-2023 ALLIED HEALTH HNO ID: [id number] Author: RASHAD LITTLE RT(R) Service: ? Author [...] Chriss(R) August 31, 2023 4:44 AM Normal [facility] Bacteria Bld Culton 08-31-19 24 Bacteria identified Cx Nom (Bld) CULTURE, BLOOD: No growth 5 days Normal [facility] Comment on above: Performed By: #### 6 00-7 #### [facility] CLIA [id number] [address] [place] Performed By: #### 6 00-7 ####[facility] [id number] [place] [address] [place] Bacteria Ur Culton [...] technique or straight catheterization for???urine???collectio n. Normal [facility] Comment on above: Performed By: #### 6 30-4 #### [facility] CLIA [id number] [facility] [place] [address] [place] CBC W Auto Differential pane l (Bld)on 08-31-2023 Basophils (Bld) [#/Vol] 0.03 10*3/uL Normal <0.11 [facility] Comment on above: Order Comment: Speci men Type: VENOUS BLOOD SPECIMEN Ordering Facility: [facility] Address: [address] [place] [address] Performed By: #### 2 4344-4 #### [facility] CLIA [id number] [place] Basophils/100 WBC (Bld) 0.3 % Normal [facility] Comment on above: Order Comment: Speci men Type: VENOUS BLOOD SPECIMEN Ordering Facility: [facility] Address: [address] [place] [id number] Performed By: #### 2 4344-4 #### [facility] CLIA [id number] [address] [place] [address] [place] Differential cell count method Nom (Bld) Auto Normal [facility] Comment on above: Order Comment: Speci men Type: VENOUS BLOOD SPECIMEN Ordering Facility: [facility] Address: [address] [place] [address] Performed By: #### 2 4344-4 #### [facility] CLIA [id number] [address] [place] [address] [place] Eosinophils (Bld) [#/Vol] 10*3/uL Normal <0.46 [facility] Comment on above: Order Comment: Speci men Type: VENOUS BLOOD SPECIMEN Ordering Facility: [facility] Address: [address] [place] [address] Performed By: #### 2 4344-4 #### [facility] CLIA [id number] [address] [place] [address] [place] Eosinophils/100 WBC (Bld) 0.1 % Normal [facility] Comment on above: Order Comment: Speci men Type: VENOUS BLOOD SPECIMEN Ordering Facility: [facility] Address: [address] [place] [address] Performed By: #### 2 4344-4 #### [facility] CLIA [id number] [address] [place] [address] [place] Erythrocyte distribution width (RBC) [Ratio] 14.5 % Normal 11.5-15.0 [facility] Comment on above: Order Comment: Speci men Type: VENOUS BLOOD SPECIMEN Ordering Facility: [facility] Address: [address] [place] [address] Performed By: #### 2 4344-4 #### [facility] CLIA [id number] [address] [place] [address] [place] Hematocrit (Bld) [Volume fraction] 31.5 % Low 36.0-46.0 [facility] Comment on above: Order Comment: Speci men Type: VENOUS BLOOD SPECIMEN Ordering Facility: [facility] Address: [address] [place] [address] Performed By: #### 2 4344-4 #### [facility] CLIA [id number] [address] [place] [address] [place] Hemoglobin (Bld) [Mass/Vol] 10.0 g/dL Low 11.5-15.5 [facility] Comment on above: Order Comment: Speci men Type: VENOUS BLOOD SPECIMEN Ordering Facility: [facility] Address: [address] [place] [address] Performed By: #### 2 4344-4 #### [facility] CLIA [id number] [address] [place] [address] [place] Immature granulocytes (Bld) [#/Vol] 0.06 10*3/uL Normal <0.10 [facility] Comment on above: Order Comment: Speci men Type: VENOUS BLOOD SPECIMEN Ordering Facility: [facility] Address: [address] [place] [address] Performed By: #### 2 4344-4 #### [facility] CLIA [id number] [address] [place] [address] [place] Immature granulocytes/100 WBC (Bld) 0.7 % Normal [facility] Comment on above: Order Comment: Speci men Type: VENOUS BLOOD SPECIMEN Ordering Facility: [facility] Address: [address] [place] [address] Performed By: #### 2 4344-4 #### [facility] CLIA [id number] [address] [place] [address] [place] Lymphocytes (Bld) [#/Vol] 1.67 10*3/uL Normal 1.00-4.00 [facility] Comment on above: Order Comment: Speci men Type: VENOUS BLOOD SPECIMEN Ordering Facility: [facility] Address: [address] [place] [address] Performed By: #### 2 4344-4 #### [facility] CLIA [id number] [address] [place] [address] [place] Lymphocytes/100 WBC (Bld) 18.8 % Normal [facility] Comment on above: Order Comment: Speci men Type: VENOUS BLOOD SPECIMEN Ordering Facility: [facility] Address: [address] [place] [address] Performed By: #### 2 4344-4 #### [facility] CLIA [id number] [address] [place] [address] [place] MCH (RBC) [Entitic mass] 24.5 pg Low 26.0-34.0 [facility] Comment on above: Order Comment: Speci men Type: VENOUS BLOOD SPECIMEN Ordering Facility: [facility] Address: [address] [place] [address] Performed By: #### 2 4344-4 #### [facility] CLIA [id number] [address] [place] [address] [place] MCHC (RBC) [Mass/Vol] 31.7 g/dL Normal 30.5-36.0 [facility] Comment on above: Order Comment: Speci men Type: VENOUS BLOOD SPECIMEN Ordering Facility: [facility] Address: [address] [place] [address] Performed By: #### 2 4344-4 #### [facility] CLIA [id number] [address] [place] [address] [place] MCV (RBC) [Entitic vol] 77.2 fL Low 80.0-100.0 [facility] Comment on above: Order Comment: Speci men Type: VENOUS BLOOD SPECIMEN Ordering Facility: [facility] Address: [address] [place] [address] Performed By: #### 2 4344-4 #### [facility] CLIA [id number] [address] [place] [address] [place] Monocytes (Bld) [#/Vol] 0.71 10*3/uL Normal <0.87 [facility] Comment on above: Order Comment: Speci men Type: VENOUS BLOOD SPECIMEN Ordering Facility: [facility] Address: [address] [place] [address] Performed By: #### 2 4344-4 #### [facility] CLIA [id number] [address] [place] [address] [place] Monocytes/100 WBC (Bld) 8.0 % Normal [facility] Comment on above: Order Comment: Speci men Type: VENOUS BLOOD SPECIMEN Ordering Facility: [facility] Address: [address] [place] [address] Performed By: #### 2 4344-4 #### [facility] CLIA [id number] [address] [place] [address] [place] Neutrophils (Bld) [#/Vol] 6.39 10*3/uL Normal 1.45-7.50 [facility] Comment on above: Order Comment: Speci men Type: VENOUS BLOOD SPECIMEN Ordering Facility: [facility] Address: [address] [place] [address] Performed By: #### 2 4344-4 #### [facility] CLIA [id number] [address] [place] [address] [place] Neutrophils/100 WBC (Bld) 72.1 % Normal [facility] Comment on above: Order Comment: Speci men Type: VENOUS BLOOD SPECIMEN Ordering Facility: [facility] Address: [address] [place] [address] Performed By: #### 2 4344-4 #### [facility] CLIA [id number] [address] [place] [address] [place] Nucleated RBC (Bld) [#/Vol] 10*3/uL Normal <0.01 [facility] Comment on above: Order Comment: Speci men Type: VENOUS BLOOD SPECIMEN Ordering Facility: [facility] Address: [address] [place] [address] Performed By: #### 2 4344-4 #### [facility] CLIA [id number] [address] [place] [address] [place] Nucleated RBC/100 WBC (Bld) [Ratio] 0.0 /100 WBC Normal [facility] Comment on above: Order Comment: Speci men Type: VENOUS BLOOD SPECIMEN Ordering Facility: [facility] Address: [address] [place] [address] Performed By: #### 2 4344-4 #### [facility] CLIA [id number] [address] [place] [address] [place] Platelet mean volume (Bld) [Entitic vol] 11.3 fL Normal 9.0-12.7 [facility] Comment on above: Order Comment: Speci men Type: VENOUS BLOOD SPECIMEN Ordering Facility: [facility] Address: [address] [place] [address] Performed By: #### 2 4344-4 #### [facility] CLIA [id number] [address] [place] [address] [place] Platelets (Bld) [#/Vol] 316 10*3/uL Normal 150-400 [facility] Comment on above: Order Comment: Speci men Type: VENOUS BLOOD SPECIMEN Ordering Facility: [facility] Address: [address] [place] [address] Performed By: #### 2 4344-4 #### [facility] CLIA [id number] [address] [place] [address] [place] RBC (Bld) [#/Vol] 4.08 10*6/uL Normal 3.90-5.20 [facility] Comment on above: Order Comment: Speci men Type: VENOUS BLOOD SPECIMEN Ordering Facility: [facility] Address: [address] [place] [address] Performed By: #### 2 4344-4 #### [facility] CLIA [id number] [address] [place] [address] [place] WBC (Bld) [#/Vol] 8.87 10*3/uL Normal 3.70-11.00 [facility] Comment on above: Order Comment: Speci men Type: VENOUS BLOOD SPECIMEN Ordering Facility: [facility] Address: [address] [place] [address] Performed By: #### 2 4344-4 #### [facility] CLIA [id number] [address] [place] [address] [place] Comprehensive metabolic 2000 panelon 08-31-2023 Albumin [Mass/Vol] 3.7 g/dL Low 3.9-4.9 [facility] Comment on above: Order Comment: Speci men Type: BLOOD SPECIMEN Ordering Facility: [facility] Address: [address] [place] [address] Performed By: #### 2 4321-2 #### [facility] CLIA [id number] [place] [address] [place] ALP [Catalytic activity/Vol] 99 U/L Normal 34-123 [facility] Comment on above: Order Comment: Speci men Type: BLOOD SPECIMEN Ordering Facility: [facility] Address: [address] [place] [address] Performed By: #### 2 4321-2 #### [facility] CLIA [id number] [address] [place] [address] [place] ALT [Catalytic activity/Vol] U/L Low 7-38 [facility] Comment on above: Order Comment: Speci men Type: BLOOD SPECIMEN Ordering Facility: [facility] Address: [address] [place] [address] Performed By: #### 2 4321-2 #### [facility] CLIA [id number] [address] [place] [address] [place] Anion gap [Moles/Vol] 12 mmol/L Normal 9-18 [facility] Comment on above: Order Comment: Speci men Type: BLOOD SPECIMEN Ordering Facility: [facility] Address: [address] [place] [address] Performed By: #### 2 4321-2 #### [facility] CLIA [id number] [address] [place] [address] [place] AST [Catalytic activity/Vol] 7 U/L Low 13-35 [facility] Comment on above: Order Comment: Speci men Type: BLOOD SPECIMEN Ordering Facility: [facility] Address: [address] [place] [address] Performed By: #### 2 4321-2 #### [facility] CLIA [id number] [address] [place] [address] [place] Bilirubin [Mass/Vol] 0.3 mg/dL Normal 0.2-1.3 [facility] Comment on above: Order Comment: Speci men Type: BLOOD SPECIMEN Ordering Facility: [facility] Address: [address] [place] [address] Performed By: #### 2 4321-2 #### [facility] CLIA [id number] [address] [place] [address] [place] Calcium [Mass/Vol] 8.7 mg/dL Normal 8.5-10.2 [facility] Comment on above: Order Comment: Speci men Type: BLOOD SPECIMEN Ordering Facility: [facility] Address: [address] [place] [address] Performed By: #### 2 4321-2 #### [facility] CLIA [id number] [address] [place] [address] [place] Chloride [Moles/Vol] 99 mmol/L Normal 97-105 [facility] Comment on above: Order Comment: Speci men Type: BLOOD SPECIMEN Ordering Facility: [facility] Address: [address] [place] [address] Performed By: #### 2 4321-2 #### [facility] CLIA [id number] [address] [place] [address] [place] CO2 [Moles/Vol] 19 mmol/L Low 22-30 [facility] Comment on above: Order Comment: Speci men Type: BLOOD SPECIMEN Ordering Facility: [facility] Address: [address] [place] [address] Performed By: #### 2 4321-2 #### [facility] CLIA [id number] [address] [place] [address] [place] Creatinine [Mass/Vol] 2.15 mg/dL High 0.58-0.96 [facility] Comment on above: Order Comment: Speci men Type: BLOOD SPECIMEN Ordering Facility: [facility] Address: [address] [place] [address] Performed By: #### 2 4321-2 #### [facility] CLIA [id number] [address] [place] [address] [place] Creatinine and Glomerular filtration rate.predicted panel (S/P/Bld) 25 mL/min/1.73m??? Low >=60 [facility] Comment on above: Order Comment: Speci men Type: BLOOD SPECIMEN Ordering Facility: [facility] Address: [address] [place] [address] Result Comment: Donna mated Glomerular Filtration Rate [...] GFR. Performed By: #### 2 4321-2 #### [facility] CLIA [id number] [address] [place] [address] [place] Glucose [Mass/Vol] 428 mg/dL High 74-99 [facility] Comment on above: Order Comment: [place] Type: BLOOD SPECIMEN Ordering Facility: [facility] Address: [address] [place] [address] Result Comment: The [place] [employer] (ADA) provides guidance for cutoff [...] Standards of Medical Care in Diabetes 2016, [place] [employer]. Diabetes Care. 2016.39(Suppl 1). Performed By: #### 2 4321-2 #### [facility] CLIA [id number] [address] [place] [address] [place] Potassium [Moles/Vol] 5.2 mmol/L High 3.7-5.1 [facility] Comment on above: Order Comment: [place] Type: BLOOD SPECIMEN Ordering Facility: [facility] Address: [address] [place] [address] Performed By: #### 2 4321-2 #### [facility] CLIA [id number] [address] [place] [address] [place] Protein [Mass/Vol] 9.1 g/dL High 6.3-8.0 [facility] Comment on above: Order Comment: [place] Type: BLOOD SPECIMEN Ordering Facility: [facility] Address: [address] [place] [address] Performed By: #### 2 4321-2 #### [facility] CLIA [id number] [address] [place] [address] [place] Sodium [Moles/Vol] 130 mmol/L Low 136-144 [facility] Comment on above: Order Comment: Speci men Type: BLOOD SPECIMEN Ordering Facility: [facility] Address: [address] [place] [address] Performed By: #### 2 4321-2 #### [facility] CLIA [id number] [address] [place] [address] [place] Urea nitrogen [Mass/Vol] 39 mg/dL High 7-21 [facility] Comment on above: Order Comment: Speci men Type: BLOOD SPECIMEN Ordering Facility: [facility] Address: [address] [place] [address] Performed By: #### 2 4321-2 #### [facility] CLIA [id number] [address] [place] [address] [place] ECG COMPLETEon 08-31-2023 ECG COMPLETE Ventricular Rate : 7 1 BPM Atrial Rate : 71 BPM P-R Interval : 166 ms QRS Duration : 80 ms Q-T Interval : 396 ms QTC Calculation(Bazett) : 431 ms Calculated P [place] : 82 degrees Calculated R [place] : 71 degrees Calculated T [place] : 48 degrees Sinus rhythm Normal ECG NO STEMI. 0752 Confirmed by MD DE LEON MICHAEL ([id number]), publication editor THERESA SEAY ([id number]) on 08/31/2023 1:24:15 PM NAME : AISLINN WHEELER PID : [id number] : 1960 Gender : Female Race : ORD : [id number] Procedure Date : Aug 31 2023 07:16:42 Edit Date : Aug 31 2023 13:24:16 Diagnosis: Sinus rhythm Normal ECG NO STEMI. 0752 Confirmed by MD DE LEON MICHAEL ([id number]), publication editor THERESA SEAY ([id number]) on 08/31/2023 1:24:15 PM Test Reason : Chest Pain Location : 402 : FVED fved05 Overread By : MD DE LEON MICHAEL Edited By : THERESA SEAY Referred By : , Acquired by : [id number], Normal [facility] ECG COMPLETE Ventricular Rate : 8 8 BPM Atrial Rate : 88 BPM P-R Interval : 153 ms QRS Duration : 78 ms Q-T Interval : 370 ms QTC Calculation(Bazett) : 448 ms Calculated P [place] : 85 degrees Calculated R [place] : 69 degrees Calculated T [place] : 62 degrees Sinus rhythm Normal ECG NO STEMI. 0604 Confirmed by KASIE SANDOVAL MD ([id number]), publication editor THERESA SEAY ([id number]) on 08/31/2023 1:02:55 PM NAME : AISLINN WHEELER PID : [id number] : 1960 Gender : Female Race : ORD : [id number] Procedure Date : Aug 31 2023 04:17:52 Edit Date : Aug 31 2023 13:02:57 Diagnosis: Sinus rhythm Normal ECG NO STEMI. 0604 Confirmed by KASIE SANDOVAL MD ([id number]), publication editor THEERSA SEAY ([id number]) on 08/31/2023 1:02:55 PM Test Reason : Arrhythmia Location : 402 : FVED fved05 Overread By : KASIE SANDOVAL MD Edited By : THERESA SEAY Referred By : , Acquired by : [id number], Normal [facility] ED PROV NOTEon 08-31-2023 ED PROV NOTE HNO ID: [id number] Author: RAYNA RHODES PA-C Service: Emergency Medicine Author Type: Physician Commercial Correspondent Type: ED Provider Notes Filed: 08/31/2023 08:06 [...] left foot. Pt states she saw her cold meat chef and was directed to come to the [...] rarely occurring (more content not included)... Normal [facility] FLUABV+SARS-CoV-2+RSV Pnl Re sp ADRIEL+probeon 08-31-2023 FLUABV+SARS-CoV-2+RS V Pnl Resp ADRIEL+probe COVID 19 RESULT: Not detected The method used is RT-PCR or an equivalent NAAT method. Reference Range(the expected result in uninfected individuals): Not detected INFLUENZA A PCR: Not detected INFLUENZA B PCR: Not detected RSV PCR: Not detected Normal [facility] Comment on above: Performed By: #### 9 5941-1 ####[id number] [place] [address] [place] Gas and Carbon monoxide pane l (BldV)on 08-31-2023 BASE DEFICIT, VENOUS -5 mmol/L Low -2-0 [facility] Comment on above: Order Comment: Speci men Type: VENOUS BLOOD SPECIMEN Ordering Facility: [facility] Address: [address] [place] [address] Performed By: #### 2 4344-4 #### [facility] CLIA [id number] [address] [place] [address] [place] Body temperature 100.04 [degF] Normal [facility] Comment on above: Order Comment: Speci men Type: VENOUS BLOOD SPECIMEN Ordering Facility: [facility] Address: [address] [place] [address] Performed By: #### 2 4344-4 #### [facility] CLIA [id number] [address] [place] [address] [place] Calcium.ionized (Bld) [Mass/Vol] 1.08 mmol/L Normal 1.08-1.30 [facility] Comment on above: Order Comment: Speci men Type: VENOUS BLOOD SPECIMEN Ordering Facility: [facility] Address: [address] [place] [address] Performed By: #### 2 4344-4 #### [facility] CLIA [id number] [address] [address] [place] Calcium.ionized adjusted to pH 7.4 (BldA) [Moles/Vol] 1.06 mmol/L Low 1.08-1.30 [facility] Comment on above: Order Comment: Speci men Type: VENOUS BLOOD SPECIMEN Ordering Facility: [facility] Address: [address] [place] [address] Performed By: #### 2 4344-4 #### [facility] CLIA [id number] [address] [address] [place] Carboxyhemoglobin (BldV) [Mass fraction] 3.8 % High 0.0-2.0 [facility] Comment on above: Order Comment: Speci men Type: VENOUS BLOOD SPECIMEN Ordering Facility: [facility] Address: [address] [place] [address] Result Comment: Carb oxyhemoglobin Reference Range for Smokers: 2.0-8.0% Performed By: #### 2 4344-4 #### [facility] CLIA [id number] [address] [place] [address] [place] Chloride [Moles/Vol] 106 mmol/L High 97-105 [facility] Comment on above: Order Comment: Speci men Type: VENOUS BLOOD SPECIMEN Ordering Facility: [facility] Address: [address] [place] [address] Performed By: #### 2 4344-4 #### [facility] CLIA [id number] [address] [place] [address] [place] CO2 (BldV) [Partial pressure] 35 mm[Hg] Low 42-55 [facility] Comment on above: Order Comment: Speci men Type: VENOUS BLOOD SPECIMEN Ordering Facility: [facility] Address: [address] [place] [address] Performed By: #### 2 4344-4 #### [facility] CLIA [id number] [address] [place] [address] CO2 adjusted to patient's actual temperature (BldV) [Partial pressure] Normal [facility] Comment on above: Order Comment: Speci men Type: VENOUS BLOOD SPECIMEN Ordering Facility: [facility] Address: [address] [place] [address] Performed By: #### 2 4344-4 #### [facility] CLIA [id number] [address] [place] [address] [place] Glucose [Mass/Vol] 460 mg/dL High 60-105 [facility] Comment on above: Order Comment: Speci men Type: VENOUS BLOOD SPECIMEN Ordering Facility: [facility] Address: [address] [place] [address] Performed By: #### 2 4344-4 #### [facility] CLIA [id number] [address] [place] [address] [place] HCO3 (Bld) [Moles/Vol] 19 mmol/L Low 24-28 [facility] Comment on above: Order Comment: Speci men Type: VENOUS BLOOD SPECIMEN Ordering Facility: [facility] Address: [address] [place] [address] Performed By: #### 2 4344-4 #### [facility] CLIA [id number] [address] [place] [address] [place] Hematocrit (Bld) [Volume fraction] 29.7 % Low 36.0-46.0 [facility] Comment on above: Order Comment: Speci men Type: VENOUS BLOOD SPECIMEN Ordering Facility: [facility] Address: [address] [place] [address] Performed By: #### 2 4344-4 #### [facility] CLIA [id number] [address] [place] [address] [place] Hemoglobin (Bld) [Mass/Vol] 9.6 g/dL Low 11.5-15.5 [facility] Comment on above: Order Comment: Speci men Type: VENOUS BLOOD SPECIMEN Ordering Facility: [facility] Address: [address] [place] [address] Performed By: #### 2 4344-4 #### [facility] CLIA [id number] [address] [place] [address] [place] Lactate [Moles/Vol] 1.1 mmol/L Normal 0.5-2.2 [facility] Comment on above: Order Comment: Speci men Type: VENOUS BLOOD SPECIMEN Ordering Facility: [facility] Address: [address] [place] [address] Performed By: #### 2 4344-4 #### [facility] CLIA [id number] [address] [place] [address] [place] Methemoglobin (Bld) [Mass fraction] 1.1 % Normal 0.0-1.5 [facility] Comment on above: Order Comment: Speci men Type: VENOUS BLOOD SPECIMEN Ordering Facility: [facility] Address: [address] [place] [address] Performed By: #### 2 4344-4 #### [facility] CLIA [id number] [place] [address] [place] O2 THERAPY RA=Room Air Normal [facility] Comment on above: Order Comment: Speci men Type: VENOUS BLOOD SPECIMEN Ordering Facility: [facility] Address: [address] [place] [address] Performed By: #### 2 4344-4 #### [facility] CLIA [id number] [address] [place] [address] [place] Oxygen (BldV) [Partial pressure] 118 mm[Hg] High 35-45 [facility] Comment on above: Order Comment: Speci men Type: VENOUS BLOOD SPECIMEN Ordering Facility: [facility] Address: [address] [place] [address] Performed By: #### 2 4344-4 #### [facility] CLIA [id number] [address] [address] [place] Oxygen adjusted to patient's actual temperature (BldV) [Partial pressure] Normal [facility] Comment on above: Order Comment: Speci men Type: VENOUS BLOOD SPECIMEN Ordering Facility: [facility] Address: [address] [place] [address] Performed By: #### 2 4344-4 #### [facility] CLIA [id number] [address] [address] [place] Oxygen saturation in Venous blood 99 % High 60-85 [facility] Comment on above: Order Comment: Speci men Type: VENOUS BLOOD SPECIMEN Ordering Facility: [facility] Address: [address] [place] [address] Performed By: #### 2 4344-4 #### [facility] CLIA [id number] [address] [place] [address] [place] Oxyhemoglobin (BldV) [Mass fraction] 94 % High 60-85 [facility] Comment on above: Order Comment: Speci men Type: VENOUS BLOOD SPECIMEN Ordering Facility: [facility] Address: [address] [place] [address] Performed By: #### 2 4344-4 #### [facility] CLIA [id number] [address] [place] [address] [place] pH (BldV) 7.37 [pH] Normal 7.32-7.42 [facility] Comment on above: Order Comment: Speci men Type: VENOUS BLOOD SPECIMEN Ordering Facility: [facility] Address: [address] [place] [address] Performed By: #### 2 4344-4 #### [facility] CLIA [id number] [address] [place] [address] pH adjusted to patient's actual temperature (BldV) Normal [facility] Comment on above: Order Comment: Speci men Type: VENOUS BLOOD SPECIMEN Ordering Facility: [facility] Address: [address] [place] [address] Performed By: #### 2 4344-4 #### [facility] CLIA [id number] [address] [address] [place] Potassium [Moles/Vol] 5.3 mmol/L High 3.5-5.0 [facility] Comment on above: Order Comment: Speci men Type: VENOUS BLOOD SPECIMEN Ordering Facility: [facility] Address: [address] [place] [address] Performed By: #### 2 4344-4 #### [facility] CLIA [id number] [address] [place] [address] [place] Sodium [Moles/Vol] 133 mmol/L Low 136-144 [facility] Comment on above: Order Comment: Speci men Type: VENOUS BLOOD SPECIMEN Ordering Facility: [facility] Address: [address] [place] [address] Performed By: #### 2 4344-4 #### [facility] CLIA [id number] [address] [place] [address] [place] HISTORY PHYSICALon HISTORY PHYSICAL HNO ID: [id number] Author: ANTHONY BARROW MD Service: Hospital Medicine [...] left foot ulcer that patient was seen cold meat chef as outpatient for and advised her to [...] nts 08/31/23 1115 activity - mobilize patient (nj,oh) VTE Prophylaxis: VTE prophylaxis appropriate SIGNATURE: Anthony Barrow MD PATIENT NAME: Aislinn Wheeler DATE: August 31, 2023 TIME: 11:03 AM PAGER/CONTACT #: Normal [facility] KETONES/ACETONE/BHBon 2023 Beta hydroxybutyrate [Moles/Vol] 0.50 mmol/L High <0.28 [facility] Comment on above: Order Comment: Speci men Type: BLOOD SPECIMEN Ordering Facility: [facility] Address: [address] [place] [address] Performed By: #### 2 4321-2 #### [facility] CLIA [id number] [address] [place] [address] [facility] POTASSIUM BLDon 08-31-2023 Potassium [Moles/Vol] 4.6 mmol/L Normal 3.7-5.1 [facility] Comment on above: Order Comment: Speci men Type: BLOOD SPECIMEN Ordering Facility: [facility] Address: [address] [place] [address] Performed By: #### 2 4321-2 #### [facility] CLIA [id number] [address] [place] [address] OF [facility] SEPSIS LACTATEon 08-31-2023 Lactate [Moles/Vol] 1.2 mmol/L Normal 0.0-2.0 [facility] Comment on above: Order Comment: Speci men Type: VENOUS BLOOD SPECIMEN Ordering Facility: [facility] Address: [address] [place] [address] Performed By: #### 2 4344-4 #### [facility] CLIA [id number] [address] [place] [address] Urinalysis complete panel (U )on 08-31-2023 Bacteria LM.HPF (Urine sed) [#/Area] Many Abnormal None Seen [facility] Comment on above: Order Comment: Speci men Type: URINE SPECIMEN Ordering Facility: [facility] Address: [address] [place] [address] Performed By: #### 2 4356-8 #### [facility] CLIA [id number] [address] [address] [place] Bilirubin Ql (U) Negative Normal Negative [facility] Comment on above: Order Comment: Speci men Type: URINE SPECIMEN Ordering Facility: [facility] Address: [address] [place] [address] Performed By: #### 2 4356-8 #### [facility] CLIA [id number] [address] [place] [address] [place] Clarity (Unsp spec) Turbid Abnormal Clear [facility] Comment on above: Order Comment: Speci men Type: URINE SPECIMEN Ordering Facility: [facility] Address: [address] [place] [address] Performed By: #### 2 4356-8 #### [facility] CLIA [id number] [address] [place] [address] [place] Color (U) Light Yellow Normal Yellow [facility] Comment on above: Order Comment: Speci men Type: URINE SPECIMEN Ordering Facility: [facility] Address: [address] [place] [address] Performed By: #### 2 4356-8 #### [facility] CLIA [id number] [address] [place] [address] [place] Glucose Test strip (U) [Mass/Vol] 4+ Abnormal Trace, Negative [facility] Comment on above: Order Comment: Speci men Type: URINE SPECIMEN Ordering Facility: [facility] Address: [address] [place] [address] Performed By: #### 2 4356-8 #### [facility] CLIA [id number] [address] [place] [address] [place] Hemoglobin Ql (U) Trace Normal Negative, Trace [facility] Comment on above: Order Comment: Speci men Type: URINE SPECIMEN Ordering Facility: [facility] Address: [address] [place] [address] Performed By: #### 2 4356-8 #### [facility] CLIA [id number] [address] [place] [address] [place] Ketones Ql (U) Negative Normal Negative, Trace [facility] Comment on above: Order Comment: Speci men Type: URINE SPECIMEN Ordering Facility: [facility] Address: [address] [place] [address] Performed By: #### 2 4356-8 #### [facility] CLIA [id number] [address] [place] [address] [place] Leukocyte esterase Test strip Ql (U) 500 Yuan/uL Abnormal Negative, 25 Yuan/uL [facility] Comment on above: Order Comment: Speci men Type: URINE SPECIMEN Ordering Facility: [facility] Address: [address] [place] [address] Performed By: #### 2 4356-8 #### [facility] CLIA [id number] [address] [place] [address] [place] Nitrite Ql (U) Negative Normal Negative [facility] Comment on above: Order Comment: Speci men Type: URINE SPECIMEN Ordering Facility: [facility] Address: [address] [place] [address] Performed By: #### 2 4356-8 #### [facility] CLIA [id number] [address] [place] [address] [place] pH (U) 6.0 [pH] Normal 5.0-8.0 [facility] Comment on above: Order Comment: Speci men Type: URINE SPECIMEN Ordering Facility: [facility] Address: [address] [place] [address] Performed By: #### 2 4356-8 #### [facility] CLIA [id number] [address] [place] [address] [place] Protein (U) [Mass/Vol] 1+ Abnormal Trace, Negative [facility] Comment on above: Order Comment: Speci men Type: URINE SPECIMEN Ordering Facility: [facility] Address: [address] [place] [address] Performed By: #### 2 4356-8 #### [facility] CLIA [id number] [address] [place] [address] [place] RBC LM.HPF (Urine sed) [#/Area] 3-5 /HPF Abnormal 0-3 /HPF [facility] Comment on above: Order Comment: Speci men Type: URINE SPECIMEN Ordering Facility: [facility] Address: [address] [place] [address] Performed By: #### 2 4356-8 #### [facility] CLIA [id number] [address] [place] [address] [place] Specific gravity (U) [Rel density] 1.017 Normal 1.005-1.030 [facility] Comment on above: Order Comment: Speci men Type: URINE SPECIMEN Ordering Facility: [facility] Address: [address] [place] [address] Performed By: #### 2 4356-8 #### [facility] CLIA [id number] [address] [place] [address] [place] Urobilinogen Ql (U) Negative Normal Negative [facility] Comment on above: Order Comment: Speci men Type: URINE SPECIMEN Ordering Facility: [facility] Address: [address] [place] [address] Performed By: #### 2 4356-8 #### [facility] CLIA [id number] [address] [place] [address] [place] WBC LM.HPF (Urine sed) [#/Area] /[HPF] Abnormal 0-5 /HPF [facility] Comment on above: Order Comment: Speci men Type: URINE SPECIMEN Ordering Facility: [facility] Address: [address] [place] [address] Performed By: #### 2 4356-8 #### [facility] CLIA [id number] [address] [place] [address] [place] XR CHEST 1V FRONTAL [...] Fatigue and malaise, Fatigue and malaise (accession [id number]), Osteomyelitis (accession [id number]) MQ: XC1_5 Comparison: CT 01/17/2021, radiograph 01/17/2021 [...] performed for increased sensitivity, as clinically warranted. Granite Installer: PSCB Transcribe Date/Time: Aug 31 2023 4:46A Dictated by : TAURUS MORTON MD This examination was interpreted and the report reviewed and electronically signed by: TAURUS MORTON MD on Aug 31 2023 4:51AM EST [id number] [facility] XR FOOT 3V AP/LAT/OBL LTon 0 08-31-2023 [...] Fatigue and malaise, Fatigue and malaise (accession [id number]), Osteomyelitis (accession [id number]) MQ: XC1_5 Comparison: CT 01/17/2021, radiograph 01/17/2021 [...] performed for increased sensitivity, as clinically warranted. Granite Installer: PSCKimberlyn Transcribe Date/Time: Aug 31 2023 4:46A Dictated by : TAURUS MORTON MD This examination was interpreted and the report reviewed and electronically signed by: TAURUS MORTON MD on Aug 31 2023 4:51AM EST [id number] Normal [facility] Benzodiazepines Screen Ql (U )on 08-09-2023 Benzodiazepines Ql (U) Negative Normal NEG [facility] Comment on above: Result Comment: Lenny odiazepines screening cut off value = 200 ng/mL This report is intended for use in clinical monitoring or management of patients. Performed By: #### 1 4316-4 #### [facility] ([id number]) [address] [place] [address] CCL GENERIC ORDERon 08-09-20 23 TEST NAME UQNTPP URINE PAIN PA VEGA QUANT Normal [facility] Comment on above: Result Comment: Wesley ected on 08/09 AT 1743: Previously reported as UQNTPP Performed By: #### C GO #### [facility] ([id number]) [address] [place] [address] TEST RESULT See Below Normal [facility] Comment on above: Result Comment: NOTE TEST RESULT FLAG UNIT REF.RANGE ----- Specimen Validity Quality See below Specimen quality results within acceptable limits Specimen Validity Creatinine 31.8 mg/dL 20.0-300.0 Specimen Validity PH 5.4 4.5-8.0 Specimen Validity Specific [place] 1.006 1.003-1.035 Specimen Validity Oxidants <38 mg/L [...] carboxylic acid (THCA) is a metabolite of zepac-0-upwyeaghuzdyknfvbeog which is the main active component of marijuana. Fentanyl, Urine <6 ng/mL <6 Buprenorphine, Ur <20 ng/mL <20 Methadone Urine <16 ng/mL <16 Methadone metabolite Urine <6 ng/mL <6 EDDP is a metabolite of methadone. Note See Below This test is for medical use only. This test was developed and its performance characteristics determined by [facility]'s Taurus [facility]endrez [facility] ([facility] It has not been cleared or approved by the FDA. [facility] is regulated under CLIA as qualified to perform high-complexity testing. This test is used for clinical purposes. It should not be regarded as investigational or for research. URINE PAIN PANEL QUANT Test Performed By: [facility] [address] [place] [address] Revenue Enforcement Collection Agent: Oswald Munguia III, M.D. [place] #[id number] Performed By: #### C GO #### [facility] ([id number]) [address] [place] [address], [place] [address] Operative Reporton Operative Report [id number]#1.00T IFF Normal [facility] Pathology Noteon 08-07-2023 Pathology Note [id number]#1.00 TIFF Normal [facility] ED Note-Physicianon 06-29-20 23 ED Note-Physician [id number]#1.00T IFF Normal [facility] Patient Letter FTon 2022 Patient Letter [facility] (Inserted Image. Grecia ble to display) June 28, 2023 AISLINN WHEELER [address] [place] [id number] : 1960 Dear Aislinn, You missed your [...] any future cancellations. Sincerely, [facility] [address], [place] [address] Pt called and RS'd. Normal [facility] Basic metabolic 2000 panelon 06-23-2023 Anion gap [Moles/Vol] 9 mmol/L Normal 9-18 [facility] Comment on above: Order Comment: Speci men Type: VENOUS BLOOD SPECIMEN Ordering Facility[facility] Address: [address] [place] [address] Performed By: #### 2 4344-4 #### [facility] CLIA [id number] [address] [place] [address] [place] Calcium [Mass/Vol] 7.3 mg/dL Low 8.5-10.2 [facility] Comment on above: Order Comment: Speci men Type: VENOUS BLOOD SPECIMEN Ordering Facility: [facility] Address: [address] [place] [address] Performed By: #### 2 4344-4 #### [facility] CLIA [id number] [address] [place] [address] [place] Chloride [Moles/Vol] 110 mmol/L High 97-105 [facility] Comment on above: Order Comment: Speci men Type: VENOUS BLOOD SPECIMEN Ordering Facility: [facility] Address: [address] [place] [address] Performed By: #### 2 4344-4 #### [facility] CLIA [id number] [address] [place] [address] [place] CO2 [Moles/Vol] 19 mmol/L Low 22-30 [facility] Comment on above: Order Comment: Speci men Type: VENOUS BLOOD SPECIMEN Ordering Facility[facility] Address: [address] [place] [address] Performed By: #### 2 4344-4 #### [facility] CLIA [id number] [address] [place] [address] [place] Creatinine [Mass/Vol] 1.39 mg/dL High 0.58-0.96 [facility] Comment on above: Order Comment: [place] Type: VENOUS BLOOD SPECIMEN Ordering Facility: [facility] Address: [address] [place] [address] Performed By: #### 2 4344-4 #### [facility] CLIA [id number] [address] [place] [address] [place] Creatinine and Glomerular filtration rate.predicted panel (S/P/Bld) 42 mL/min/1.73m??? Low >=60 [facility] Comment on above: Order Comment: Diallo reinier Type: VENOUS BLOOD SPECIMEN Ordering Facility: [facility] Address: [address] [place] [address] Result Comment: Donna mated Glomerular Filtration Rate [...] GFR. Performed By: #### 2 4344-4 #### [facility] CLIA [id number] [address] [place] [address] [place] Glucose [Mass/Vol] 157 mg/dL High 74-99 [facility] Comment on above: Order Comment: Diallo reinier Type: VENOUS BLOOD SPECIMEN Ordering Facility: [facility] Address: [address] [place] [address] Result Comment: The [place] [employer] (ADA) provides guidance for cutoff [...] Standards of Medical Care in Diabetes 2016, [place] [employer]. Diabetes Care. 2016.39(Suppl 1). Performed By: #### 2 4344-4 #### [facility] CLIA [id number] [address] [place] [address] [place] Potassium [Moles/Vol] 5.1 mmol/L Normal 3.7-5.1 [facility] Comment on above: Order Comment: Speci men Type: VENOUS BLOOD SPECIMEN Ordering Facility: [facility] Address: [address] [place] [address] Performed By: #### 2 4344-4 #### [facility] CLIA [id number] [address] [place] [address] [place] Sodium [Moles/Vol] 138 mmol/L Normal 136-144 [facility] Comment on above: Order Comment: Speci men Type: VENOUS BLOOD SPECIMEN Ordering Facility: [facility] Address: [address] [place] [address] Performed By: #### 2 4344-4 #### [facility] CLIA [id number] [address] [place] [address] [place] Urea nitrogen [Mass/Vol] 21 mg/dL Normal 7-21 [facility] Comment on above: Order Comment: Speci men Type: VENOUS BLOOD SPECIMEN Ordering Facility: [facility] Address: [address] [place] [address] Performed By: #### 2 4344-4 #### [facility] CLIA [id number] [address] [place] [address] [place] CBC panel Auto (Bld)on 06-23 Erythrocyte distribution width (RBC) [Ratio] 14.4 % Normal 11.5-15.0 [facility] Comment on above: Order Comment: Speci men Type: BLOOD SPECIMEN Ordering Facility: [facility] Address: [address] [place] [address] Performed By: #### 5 8410-2 #### [facility] CLIA [id number] [address] [place] [address] [place] Hematocrit (Bld) [Volume fraction] 28.5 % Low 36.0-46.0 [facility] Comment on above: Order Comment: Speci men Type: BLOOD SPECIMEN Ordering Facility: [facility] Address: [address] [place] [address] Performed By: #### 5 8410-2 #### [facility] CLIA [id number] [address] [place] [address] [place] Hemoglobin (Bld) [Mass/Vol] 9.0 g/dL Low 11.5-15.5 [facility] Comment on above: Order Comment: Speci men Type: BLOOD SPECIMEN Ordering Facility: [facility] Address: [address] [place] [address] Performed By: #### 5 8410-2 #### [facility] CLIA [id number] [address] [place] [address] [place] MCH (RBC) [Entitic mass] 25.2 pg Low 26.0-34.0 [facility] Comment on above: Order Comment: Speci men Type: BLOOD SPECIMEN Ordering Facility: [facility] Address: [address] [place] [address] Performed By: #### 5 8410-2 #### [facility] CLIA [id number] [address] [place] [address] [place] MCHC (RBC) [Mass/Vol] 31.6 g/dL Normal 30.5-36.0 [facility] Comment on above: Order Comment: Speci men Type: BLOOD SPECIMEN Ordering Facility: [facility] Address: [address] [place] [address] Performed By: #### 5 8410-2 #### [facility] CLIA [id number] [address] [place] [address] [place] MCV (RBC) [Entitic vol] 79.8 fL Low 80.0-100.0 [facility] Comment on above: Order Comment: Speci men Type: BLOOD SPECIMEN Ordering Facility: [facility] Address: [address] [place] [address] Performed By: #### 5 8410-2 #### [facility] CLIA [id number] [address] [address] [place] Nucleated RBC (Bld) [#/Vol] 10*3/uL Normal <0.01 [facility] [facility] Comment on above: Order Comment: Speci men Type: BLOOD SPECIMEN Ordering Facility: [facility] Address: [address] [place] [address] Performed By: #### 5 8410-2 #### [facility] CLIA [id number] [address] [place] [address] [place] Platelet mean volume (Bld) [Entitic vol] 10.6 fL Normal 9.0-12.7 [facility] Comment on above: Order Comment: Speci men Type: BLOOD SPECIMEN Ordering Facility: [facility] Address: [address] [place] [address] Performed By: #### 5 8410-2 #### [facility] CLIA [id number] [address] [place] [address] [place] Platelets (Bld) [#/Vol] 251 10*3/uL Normal 150-400 [facility] Comment on above: Order Comment: Speci men Type: BLOOD SPECIMEN Ordering Facility: [facility] Address: [address] [place] [address] Performed By: #### 5 8410-2 #### [facility] CLIA [id number] [address] [place] [address] [place] RBC (Bld) [#/Vol] 3.57 10*6/uL Low 3.90-5.20 [facility] Comment on above: Order Comment: Speci men Type: BLOOD SPECIMEN Ordering Facility: [facility] Address: [address] [place] [address] Performed By: #### 5 8410-2 #### [facility] CLIA [id number] [address] [place] [address] [place] WBC (Bld) [#/Vol] 7.47 10*3/uL Normal 3.70-11.00 [facility] Comment on above: Order Comment: Speci men Type: BLOOD SPECIMEN Ordering Facility: [facility] Address: [address] [place] [address] Performed By: #### 5 8410-2 #### [facility] CLIA [id number] [address] DIDIERDSrbitta 06-23-2023 [facility] HNO ID: [id number] Author: Annie Martinez APRN.[facility] Service: Urology Author Type: Nurse Practitioner Type: [...] this patient's care. Taurus Ballard MD [facility] [place] [phone] or [phone]) [facility] [place] I N F O R M A T I O N ------ STANDARD [facility] DOCUMENT DISCHARGE SUMMARY Patient Name: Aislinn Wheeler [...] Your Medications These medications were sent to [facility] [address] [place] [address] Hours: Monday-Monday: 7am-7pm, Sat: 9am-1pm acetaminophen 325 mg tablet docusate sodium 100 mg capsule Future Appointments: No future appointments. Electronically SIGNED by Licensed Independent Practitioner: Annie Martinez APRN.[facility] 06-23-2023 [facility] Telephone (URFHR) AISLINN WHEELER ([id number]) 1960 F Date Time Provider Department 06/23/23 [facility] During your visit today, we recorded the following information about you: Heidy Garcia RN 06/23/2023 9:05 AM Signed Patient had left robotic partial nephrectomy by Dr. Ballard on 06/22/2023 Will call for surgical follow up once discharged Heidy Garcia RN 06/26/2023 10:45 AM Signed Patient phone number non functioning. Active in e-channel, will send message inquiring on how she's feeling post-operatively. Vonnie Wilder RN 06/27/2023 10:15 AM Signed Spoke with grand daughter, Chloe, as this office is unable to reach patient for post op call. Chloe reports, that patient's phone is turned off, and she does not know how to use Beaming. Chloe reports that patient went to [place] [facility] due to excruciating pain -was given [...] Encounter Status:Closed by HEIDY GARCIA on 06/23/23 [facility] NURSING PROGon 06-23-2023 NURSING PROG HNO ID: [id number] Author: Sweta Cordova RN Service: ? Author [...] Annie Martinez, awaiting PRN order of hydralazine. [facility] ANES POSTPROC EVALon 023 ANES POSTPROC EVAL HNO ID: [id number] Author: Rikki Jhaveri MD Service: Anesthesiology Author Type: Anesthesiologist Type: Anesthesia Postprocedure Evaluation Filed: 06/22/2023 2:18 PM Note Text: POST ANESTHESIA EVALUATION NOTE : 1960 Procedure Summary Date: 06/22/23 Room / Location: ORA / OR Anesthesia Start: 1107 Anesthesia Stop: 1405 [...] June 22, 2023 TIME: 2:18 PM CSN: [id number] [facility] ANES PRE-OPon 06-22-2023 ANES PRE-OP HNO ID: [id number] Author: Rikki Jhaveri MD Service: Anesthesiology Author Type: Anesthesiologist Type: Anesthesia Preprocedure Evaluation Filed: 06/22/2023 9:55 AM Note Text: ANESTHESIOLOGY DAY OF SURGERY NOTE : 1960 Procedure Information Date/Time: 06/22/23 1115 Procedure: ROBOTIC LAPAROSCOPIC NEPHRECTOMY PARTIAL (Abdomen quadrant upper) Location: OR01A / OR Surgeons: Taurus Ballard MD Estimated body [...] and consent discussed: yes. Patient / Responsible Republican agrees to proceed: yes Patient / Surrogate [...] June 22, 2023 TIME: 9:54 AM CSN: [id number] Normal [facility] Basic metabolic 2000 panelon 06-22-2023 Anion gap [Moles/Vol] 7 mmol/L Low 9-18 [facility] Comment on above: Order Comment: Speci men Type: BLOOD SPECIMEN Ordering Facility: [facility] Address: [address] [place] [address] Performed By: #### 2 4321-2 #### [facility] CLIA [id number] [address] [place] [address] [place] Calcium [Mass/Vol] 7.5 mg/dL Low 8.5-10.2 [facility] Comment on above: Order Comment: Speci men Type: BLOOD SPECIMEN Ordering Facility: [facility] Address: [address] [place] [address] Performed By: #### 2 4321-2 #### [facility] CLIA [id number] [address] [place] [address] [place] Chloride [Moles/Vol] 108 mmol/L High 97-105 [facility] Comment on above: Order Comment: Speci men Type: BLOOD SPECIMEN Ordering Facility: [facility] Address: [address] [place] [address] Performed By: #### 2 4321-2 #### [facility] CLIA [id number] [address] [place] [address] [place] CO2 [Moles/Vol] 19 mmol/L Low 22-30 [facility] Comment on above: Order Comment: Speci men Type: BLOOD SPECIMEN Ordering Facility[facility] Address: [address] [place] [address] Performed By: #### 2 4321-2 #### [facility] CLIA [id number] [address] [place] [address] [place] Creatinine [Mass/Vol] 1.57 mg/dL High 0.58-0.96 [facility] Comment on above: Order Comment: [place] Type: BLOOD SPECIMEN Ordering Facility: [facility] Address: [address] [place] [address] Performed By: #### 2 4321-2 #### [facility] CLIA [id number] [place] [address] OF [facility] Creatinine and Glomerular filtration rate.predicted panel (S/P/Bld) 36 mL/min/1.73m??? Low >=60 [facility] Comment on above: Order Comment: [place] Type: BLOOD SPECIMEN Ordering Facility[facility] Address: [address] [place] [address] Result Comment: Donna mated Glomerular Filtration Rate [...] GFR. Performed By: #### 2 4321-2 #### [facility] CLIA [id number] [place] [address] [place] Glucose [Mass/Vol] 275 mg/dL High 74-99 [facility] Comment on above: Order Comment: [place] Type: BLOOD SPECIMEN Ordering Facility[facility] Address: [address] [place] [address] Result Comment: The [place] Diabetes Association (ADA) provides guidance for cutoff [...] Standards of Medical Care in Diabetes 2016, [place] [employer]. Diabetes Care. 2016.39(Suppl 1). Performed By: #### 2 4321-2 #### [facility] CLIA [id number] [address] [place] [address] [place] Potassium [Moles/Vol] 5.3 mmol/L High 3.7-5.1 [facility] Comment on above: Order Comment: Speci men Type: BLOOD SPECIMEN Ordering Facility[facility] Address: [address] [place] [address] Performed By: #### 2 4321-2 #### [facility] CLIA [id number] [address] [place] [address] [place] Sodium [Moles/Vol] 134 mmol/L Low 136-144 [facility] Comment on above: Order Comment: Speci men Type: BLOOD SPECIMEN Ordering Facility[facility] Address: [address] [place] [address] Performed By: #### 2 4321-2 #### [facility] CLIA [id number] [address] [place] [address] [place] Urea nitrogen [Mass/Vol] 26 mg/dL High 7-21 [facility] Comment on above: Order Comment: Speci men Type: BLOOD SPECIMEN Ordering Facility: [facility] Address: [address] [place] [address] Performed By: #### 2 4321-2 #### [facility] CLIA [id number] [address] [place] [address] [place] CBC panel Auto (Bld)on 06-22 Erythrocyte distribution width (RBC) [Ratio] 14.3 % Normal 11.5-15.0 [facility] Comment on above: Order Comment: Speci men Type: BLOOD SPECIMEN Ordering Facility: [facility] Address: [address] [place] [address] Performed By: #### 2 4321-2 #### [facility] CLIA [id number] [address] [address] [place] Hematocrit (Bld) [Volume fraction] 27.8 % Low 36.0-46.0 [facility] Comment on above: Order Comment: Speci men Type: BLOOD SPECIMEN Ordering Facility: [facility] Address: [address] [place] [address] Performed By: #### 2 4321-2 #### [facility] CLIA [id number] [address] [address] STATES OF [facility] Hemoglobin (Bld) [Mass/Vol] 8.9 g/dL Low 11.5-15.5 [facility] Comment on above: Order Comment: Speci men Type: BLOOD SPECIMEN Ordering Facility: [facility] Address: [address] [place] [address] Performed By: #### 2 4321-2 #### [facility] CLIA [id number] [address] [address] STATES [facility] MCH (RBC) [Entitic mass] 25.3 pg Low 26.0-34.0 [facility] Comment on above: Order Comment: Speci men Type: BLOOD SPECIMEN Ordering Facility: [facility] Address: [address] [place] [address] Performed By: #### 2 4321-2 #### [facility] CLIA [id number] [address] [place] [address] MCHC (RBC) [Mass/Vol] 32.0 g/dL Normal 30.5-36.0 [facility] Comment on above: Order Comment: Speci men Type: BLOOD SPECIMEN Ordering Facility: [facility] Address: [address] [place] [address] Performed By: #### 2 4321-2 #### [facility] CLIA [id number] [address] [address] [place] MCV (RBC) [Entitic vol] 79.0 fL Low 80.0-100.0 [facility] Comment on above: Order Comment: Speci men Type: BLOOD SPECIMEN Ordering Facility: [facility] Address: [address] [place] [address] Performed By: #### 2 4321-2 #### [facility] CLIA [id number] [address] [place] [address] [place] Nucleated RBC (Bld) [#/Vol] 10*3/uL Normal <0.01 [facility] Comment on above: Order Comment: Speci men Type: BLOOD SPECIMEN Ordering Facility[facility] Address: [address] [place] [address] Performed By: #### 2 4321-2 #### [facility] CLIA [id number] [address] [place] [address] [place] Platelet mean volume (Bld) [Entitic vol] 10.8 fL Normal 9.0-12.7 [facility] Comment on above: Order Comment: Speci men Type: BLOOD SPECIMEN Ordering Facility: [facility] Address: [address] [place] [address] Performed By: #### 2 4321-2 #### [facility] CLIA [id number] [address] [place] [address] [place] Platelets (Bld) [#/Vol] 230 10*3/uL Normal 150-400 [facility] Comment on above: Order Comment: Speci men Type: BLOOD SPECIMEN Ordering Facility[facility] Address: [address] [place] [address] Performed By: #### 2 4321-2 #### [facility] CLIA [id number] [address] [place] [address] [place] RBC (Bld) [#/Vol] 3.52 10*6/uL Low 3.90-5.20 [facility] Comment on above: Order Comment: Speci men Type: BLOOD SPECIMEN Ordering Facility: [facility] Address: [address] [place] [address] Performed By: #### 2 4321-2 #### [facility] CLIA [id number] [address] [place] [address] [place] WBC (Bld) [#/Vol] 6.04 10*3/uL Normal 3.70-11.00 [facility] Comment on above: Order Comment: Speci men Type: BLOOD SPECIMEN Ordering Facility[facility] Address: [address] [place] [address] Performed By: #### 2 4321-2 #### [facility] CLIA [id number] [address] [place] [address] OF [facility] NURSING PROGon 06-22-2023 NURSING PROG HNO ID: [id number] Author: Afia Lanier, REY Service: Nursing Author Type: Registered Nurse Type: Nursing Progress Note Filed: 06/22/2023 5:56 PM Note Text: Transfer Note: PATIENT NAME: Aislinn Wheeler Patient Location: [place] [address]/RA5H-51 Room: [address] Patient transferred into room/unit pk308 in stable condition. Actions taken: No futher actions taken at this time. Will continue to monitor and check with patient. [facility] NURSING PROG HNO ID: [id number] Author: Linda Nicholson, REY Service: Nursing Author Type: Registered Nurse Type: Nursing Progress Note Filed: 06/22/2023 12:20 PM Note Text: pre-incision juan area noted to have redness and inflamed, prior to prepping and putting chaves in. [facility] NURSING PROG HNO ID: [id number] Author: Elva Joy RN Service: Nursing Author Type: Registered Nurse Type: Nursing Progress Note Filed: 06/22/2023 9:48 AM Note Text: PATIENT EDUCATION TOPIC: PROCEDURE / SURGERY: Pre-op Teaching: Surgery PATIENT NAME: Aislinn Wheeler PATIENT LOCATION: OR OPHEIM/FV OR POOL READINESS TO LEARN COGNITIVE ABILITY: [...] (RECOMMENDATION): None Electronically Signed By: Elva Joy [facility] OPERATIVE NOon 06-22-2023 OPERATIVE NO HNO ID: [id number] Author: Taurus Ballard MD Service: Urology Author Type: Physician Type: Operative Report Filed: 06/22/2023 1:48 PM Note Text: OPERATIVE/PROCEDURE REPORT LOG ID: [id number] Surgery/Procedure Date: 06/22/2023 Incision/Procedure Start Time: 11:49 AM Incision Close/Procedure End Time: 1:55 PM Surgeon(s)/Proceduralis t(s) and Commercial Correspondent(s): Surgeon(s) and Role: * Taurus Ballard MD - Primary * Jeet De La Fuente MD - Resident - Assisting Physician Commercial Correspondent: Rocael Rios PA-C; Alicia Harmon PA-C Procedure(s): [...] superior to the umbilicus a 12 mm circulation assistant port was placed. At this point [...] a specimen bag out of the supraumbilical circulation assistant port. This port was closed with [...] None Drains: 10 flat JUAN drain, 16 Divehi Chaves catheter Complications: None Accidental Punctures/Lacerations: None I/primary surgeon/proceduralist performed the procedure with assistance. SIGNATURE: Taurus Ballard MD PATIENT NAME: Aislinn Wheeler DATE: June 22, 2023 TIME: 1:42 PM PAGER/CONTACT #: [facility] SURGICAL PATHOLOGYon 023 CASE REPORT [facility] Comment on above: Order Comment: Speci men Type: BLOOD SPECIMEN Ordering Facility[facility] Address: [address] [place] [address] Result Comment: [facility] Pathology Report Case: [id number] Authorizing Provider: Taurus Ballard MD Collected: 06/22/2023 01:38 PM Ordering Location: [facility] Received: 06/22/2023 03:16 PM Operating Room Pathologist: Barron Cheema MD Specimen: KIDNEY PARTIAL NEPHRECTOMY LEFT, left renal neoplasm Performed By: #### 2 4321-2 #### [facility] CLIA [id number] CLINICAL HISTORY Normal [facility] Comment on above: Order Comment: Speci men Type: BLOOD SPECIMEN Ordering Facility: [facility] Address: [address] [place] [address] Result Comment: 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 - 7.2 cm gross greatest dimension of tissue specimen (defer to clinical/imaging for overall lesion size). Performed By: #### 2 4321-2 #### [facility] CLIA [id number] [address] [place] [address] OF [facility] FINAL PERFORMING LAB Normal [facility] Comment on above: Order Comment: Speci men Type: BLOOD SPECIMEN Ordering Facility[facility] Address: [address] [place] [address] Result Comment: Diag nostic interpretation performed at [facility], [address] [place] [address] CLIA# [id number] Revenue Enforcement Collection Agent: Oswald Munguia M.D. Performed By: #### 2 4321-2 #### [facility] CLIA [id number] [address] [place] [address] GROSS DESCRIPTION Normal [facility] Comment on above: Order Comment: Speci men Type: BLOOD SPECIMEN Ordering [facility] Address: [address] [place] [address] Result Comment: Emre MCGRATH PARTIAL NEPHRECTOMY LEFT Received in formalin designated left renal neoplasm is a segment of chilel-purple membranous tissue which weighs 39 g and measures 7.2 x 5.5 x 3.5 cm. There is cautery present at the margin which is inked orange. The surfaces are smooth with no masses or papillations grossly appreciated. Sectioning does not reveal any masses. Equipment Or Machinery Cleaner sections are submitted in 5 cassettes. BF June 23, 2023 9:00 AM Gross examination performed at [facility], [address] [place] [address] CLIA # [id number] Performed By: #### 2 4321-2 #### [facility] CLIA [id number] [address] [place] [address] OF [place] CNPOlivia 06-15-2023 CNPN Telephone ([facility]) AISLNIN WHEELER ([id number]) 1960 F Date Time Provider Department 06/15/23 VONNIE WILDER During your visit today, we recorded the [...] Encounter Status:Closed by VONNIE WILDER on 06/15/23 [facility] 06-12-2023 [facility] AISLINN WHEELER ([id number]) 1960 F Date Time Provider Department 06/12/23 LILIANA VELASCO [facility] During your visit today, we recorded the following information about you: Liliana Velasco RN 06/12/2023 8:56 AM Signed Received call from RN at Dr. Sara Augustine ([phone]) office (endocrinology) regarding clearance for upcoming surgery [...] Sara Dai CNP received and scanned into apomio to view. Allergies As of Date: 06/12/2023 [...] Encounter Status:Closed by LILIANA VELASCO on 06/12/23 [facility] C Urineon 06-10-2023 Bacteria identified Cx [...] Locations R1: This test was performed at: [facility], [address] [place] [address], [address]- , [place], [place] Comment on above: Performed By: #### 2 [id number] #### [facility] [address] [place], [place] [address] [address] [facility] 06-09-2023 [facility] AISLINN WHEELER ([id number]) 1960 F Date Time Provider Department 06/09/23 [facility] During your visit today, we recorded the following information about you: Derik Fernandez 06/09/2023 3:31 PM Signed Lvm on patient's phone inquiring if 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 on 06/08 for clearance for her surgery on 06/22 Left message with office of Sara Augustine ([phone]) where patient's appointment was scheduled asking for [...] Encounter Status:Closed by DERIK FERNANDEZ on 06/09/23 [facility] Glucose - FINGER STICKon Glucose [Mass/Vol] 436 mg/dL [facility]-07-2023 CNPN Telephone ([facility]) AISLINN WHEELER ([id number]) 1960 F Date Time Provider Department 06/07/23 [...] to PCP Thank you Jenny Aguilar APRN.[facility] Jenny Aguilar APRN.CNP 06/07/2023 8:26 [...] June 12, 2023 12:49 PM Jenny Aguilar APRN.[facility] 06/13/2023 11:[address] Chao, Patient saw endocrinology at [facility] 06/08 and had medications adjusted. I called patient to see how BG levels have been but unable to reach. She has a follow up with endo 06/20 Can she proceed with surgery since she saw endo? Thank you Jenny Aguilar APRN.PEDIATRIC SOCIAL WORK[employer] [facility] Jenny Aguilar APRN.KIARA 06/15/2023 1:26 PM Signed Repeat labs completed [...] fatigue. She is on her way to [facility] ED. Because patient is not feeling [...] with hyperglycemia (HCC) [E11.65] Order(s):CONSULT TO ENDOCRINOLOGY [4905] Order #: [id number]: 1 FUTURE Prescriptions as of 06/19/2023 - [...] hours as (more content not included)... Normal [facility] CBC W Auto Differential pane l (Bld)on 06-06-2023 Basophils (Bld) [#/Vol] 0.04 10*3/uL Normal <0.11 [facility] Comment on above: Order Comment: Speci men Type: BLOOD SPECIMEN Order[facility] Facility[facility] Address: [address] [place] [address] Performed By: #### 5 7021-8 #### [facility] CLIA [id number] [address] [facility] [id number] [place] [address] [place] Basophils/100 WBC (Bld) 0.8 % Normal [facility] Comment on above: Order Comment: Speci men Type: BLOOD SPECIMEN Ordering Facility[facility] Address: [address] [place] [address] Performed By: #### 5 7021-8 #### [facility] CLIA [id number] [address] [place] [address] [place] Differential cell count method Nom (Bld) Auto Normal [facility] Comment on above: Order Comment: Speci men Type: BLOOD SPECIMEN Order[facility] Address: [address] [place] [address] Performed By: #### 5 7021-8 #### [facility] CLIA [id number] [address] [place] [address] [place] Eosinophils (Bld) [#/Vol] 0.15 10*3/uL Normal <0.46 [facility] Comment on above: Order Comment: Speci men Type: BLOOD SPECIMEN Ordering Facility[facility] Address: [address] [place] [address] Performed By: #### 5 7021-8 #### [facility] CLIA [id number] [address] [place] [address] [place] Eosinophils/100 WBC (Bld) 3.1 % Normal [facility] Comment on above: Order Comment: Speci men Type: BLOOD SPECIMEN Ordering Facility[facility] Address: [address] [place] [address] Performed By: #### 5 7021-8 #### [facility] CLIA [id number] [address] [place] [address] [place] Erythrocyte distribution width (RBC) [Ratio] 14.7 % Normal 11.5-15.0 [facility] Comment on above: Order Comment: Speci men Type: BLOOD SPECIMEN Ordering Facility[facility] Address: [address] [place] [address] Performed By: #### 5 7021-8 #### [facility] CLIA [id number] [address] [place] [address] [place] Hematocrit (Bld) [Volume fraction] 37.2 % Normal 36.0-46.0 [facility] Comment on above: Order Comment: Speci men Type: BLOOD SPECIMEN Ordering Facility[facility] Address: [address] [place] [address] Performed By: #### 5 7021-8 #### [facility] CLIA [id number] [address] [place] [address] [place] Hemoglobin (Bld) [Mass/Vol] 11.9 g/dL Normal 11.5-15.5 [facility] Comment on above: Order Comment: Speci men Type: BLOOD SPECIMEN Ordering Facility[facility] Address: [address] [place] [address] Performed By: #### 5 7021-8 #### [facility] CLIA [id number] [address] [place] [address] [place] Immature granulocytes (Bld) [#/Vol] 10*3/uL Normal <0.10 [facility] Comment on above: Order Comment: Speci men Type: BLOOD SPECIMEN Ordering Facility: [facility] Address: [address] [place] [address] Performed By: #### 5 7021-8 #### [facility] CLIA [id number] [address] [place] [address] [place] Immature granulocytes/100 WBC (Bld) 0.4 % Normal [facility] Comment on above: Order Comment: Speci men Type: BLOOD SPECIMEN Ordering Facility: [facility] Address: [address] [place] [address] Performed By: #### 5 7021-8 #### [facility] CLIA [id number] [address] [place] [address] [place] Lymphocytes (Bld) [#/Vol] 2.18 10*3/uL Normal 1.00-4.00 [facility] Comment on above: Order Comment: Speci men Type: BLOOD SPECIMEN Ordering Facility: [facility] Address: [address] [place] [address] Performed By: #### 5 7021-8 #### [facility] CLIA [id number] [address] [place] [address] [place] Lymphocytes/100 WBC (Bld) 44.7 % Normal [facility] Comment on above: Order Comment: Speci men Type: BLOOD SPECIMEN Ordering Facility: [facility] Address: [address] [place] [address] Performed By: #### 5 7021-8 #### [facility] CLIA [id number] [address] [place] [address] [place] MCH (RBC) [Entitic mass] 25.4 pg Low 26.0-34.0 [facility] Comment on above: Order Comment: Speci men Type: BLOOD SPECIMEN Ordering Facility: [facility] Address: [address] [place] [address] Performed By: #### 5 7021-8 #### [facility] CLIA [id number] [address] [place] [address] [place] MCHC (RBC) [Mass/Vol] 32.0 g/dL Normal 30.5-36.0 [facility] Comment on above: Order Comment: Speci men Type: BLOOD SPECIMEN Ordering Facility: [facility] Address: [address] [place] [address] Performed By: #### 5 7021-8 #### [facility] CLIA [id number] [address] [place] [address] [place] MCV (RBC) [Entitic vol] 79.5 fL Low 80.0-100.0 [facility] Comment on above: Order Comment: Speci men Type: BLOOD SPECIMEN Ordering Facility: [facility] Address: [address] [place] [address] Performed By: #### 5 7021-8 #### [facility] CLIA [id number] [address] [place] [address] [place] Monocytes (Bld) [#/Vol] 0.42 10*3/uL Normal <0.87 [facility] Comment on above: Order Comment: Speci men Type: BLOOD SPECIMEN Ordering Facility: [facility] Address: [address] [place] [address] Performed By: #### 5 7021-8 #### [facility] CLIA [id number] [address] [place] [address] [place] Monocytes/100 WBC (Bld) 8.6 % Normal [facility] Comment on above: Order Comment: Speci men Type: BLOOD SPECIMEN Ordering Facility: [facility] Address: [address] [place] [address] Performed By: #### 5 7021-8 #### [facility] CLIA [id number] [address] [place] [address] [place] Neutrophils (Bld) [#/Vol] 2.07 10*3/uL Normal 1.45-7.50 [facility] Comment on above: Order Comment: Speci men Type: BLOOD SPECIMEN Ordering Facility: [facility] Address: [address] [place] [address] Performed By: #### 5 7021-8 #### [facility] CLIA [id number] [address] [place] [address] [place] Neutrophils/100 WBC (Bld) 42.4 % Normal [facility] Comment on above: Order Comment: Speci men Type: BLOOD SPECIMEN Ordering Facility: [facility] Address: [address] [place] [address] Performed By: #### 5 7021-8 #### [facility] CLIA [id number] [address] [place] [address] [place] Nucleated RBC (Bld) [#/Vol] 10*3/uL Normal <0.01 [facility] Comment on above: Order Comment: Speci men Type: BLOOD SPECIMEN Ordering Facility: [facility] Address: [address] [place] [address] Performed By: #### 5 7021-8 #### [facility] CLIA [id number] [address] [place] [address] [place] Nucleated RBC/100 WBC (Bld) [Ratio] 0.0 /100 WBC Normal [facility] Comment on above: Order Comment: Speci men Type: BLOOD SPECIMEN Ordering Facility: [facility] Address: [address] [place] [address] Performed By: #### 5 7021-8 #### [facility] CLIA [id number] [address] [place] [address] [place] Platelet mean volume (Bld) [Entitic vol] 11.5 fL Normal 9.0-12.7 [facility] Comment on above: Order Comment: Speci men Type: BLOOD SPECIMEN Ordering Facility: [facility] Address: [address] [place] [address] Performed By: #### 5 7021-8 #### [facility] CLIA [id number] [address] [place] [address] [place] Platelets (Bld) [#/Vol] 230 10*3/uL Normal 150-400 [facility] Comment on above: Order Comment: Speci men Type: BLOOD SPECIMEN Ordering Facility: [facility] Address: [address] [place] [address] Performed By: #### 5 7021-8 #### [facility] CLIA [id number] [address] [place] [address] [place] RBC (Bld) [#/Vol] 4.68 10*6/uL Normal 3.90-5.20 [facility] Comment on above: Order Comment: Speci men Type: BLOOD SPECIMEN Ordering Facility: [facility] Address: [address] [place] [address] Performed By: #### 5 7021-8 #### [facility] CLIA [id number] [address] [place] [address] [place] WBC (Bld) [#/Vol] 4.88 10*3/uL Normal 3.70-11.00 [facility] Comment on above: Order Comment: Speci men Type: BLOOD SPECIMEN Ordering Facility: [facility] Address: [address] [place] [address] Performed By: #### 5 7021-8 #### [facility] CLIA [id number] [address] [place] [address] [place] Comprehensive metabolic 2000 panelon 06-06-2023 Albumin [Mass/Vol] 3.8 g/dL Low 3.9-4.9 [facility] Comment on above: Order Comment: Speci men Type: BLOOD SPECIMEN Ordering Facility: [facility] Address: [address] [place] [address] Performed By: #### 2 4323-8 #### [facility] CLIA [id number] [address] [place] [address] [place] ALP [Catalytic activity/Vol] 115 U/L Normal 34-123 [facility] Comment on above: Order Comment: Speci men Type: BLOOD SPECIMEN Ordering Facility: [facility] Address: [address] [place] [address] Performed By: #### 2 4323-8 #### [facility] CLIA [id number] [address] [place] [address] [place] ALT [Catalytic activity/Vol] 11 U/L Normal 7-38 [facility] Comment on above: Order Comment: Speci men Type: BLOOD SPECIMEN Ordering Facility: [facility] Address: [address] [place] [address] Performed By: #### 2 4323-8 #### [facility] CLIA [id number] [address] [place] [address] [place] Anion gap [Moles/Vol] 11 mmol/L Normal 9-18 [facility] Comment on above: Order Comment: Speci men Type: BLOOD SPECIMEN Ordering Facility: [facility] Address: [address] [place] [address] Performed By: #### 2 4323-8 #### [facility] CLIA [id number] [address] [place] [address] [place] AST [Catalytic activity/Vol] 12 U/L Low 13-35 [facility] Comment on above: Order Comment: Speci men Type: BLOOD SPECIMEN Ordering Facility: [facility] Address: [address] [place] [address] Performed By: #### 2 4323-8 #### [facility] CLIA [id number] [address] [place] [address] [place] Bilirubin [Mass/Vol] 0.3 mg/dL Normal 0.2-1.3 [facility] Comment on above: Order Comment: Speci men Type: BLOOD SPECIMEN Ordering Facility: [facility] Address: [address] [place] [address] Performed By: #### 2 4323-8 #### [facility] CLIA [id number] [address] [place] [address] [place] Calcium [Mass/Vol] 8.9 mg/dL Normal 8.5-10.2 [facility] Comment on above: Order Comment: Speci men Type: BLOOD SPECIMEN Ordering Facility: [facility] Address: [address] [place] [address] Performed By: #### 2 4323-8 #### [facility] CLIA [id number] [address] [place] [address] [place] Chloride [Moles/Vol] 95 mmol/L Low 97-105 [facility] Comment on above: Order Comment: Speci men Type: BLOOD SPECIMEN Ordering Facility: [facility] Address: [address] [place] [address] Performed By: #### 2 4323-8 #### [facility] CLIA [id number] [address] [place] [address] [place] CO2 [Moles/Vol] 24 mmol/L Normal 22-30 [facility] Comment on above: Order Comment: Speci men Type: BLOOD SPECIMEN Ordering Facility: [facility] Address: [address] [place] [address] Performed By: #### 2 4323-8 #### [facility] CLIA [id number] [address] [place] [address] [place] Creatinine [Mass/Vol] 1.81 mg/dL High 0.58-0.96 [facility] Comment on above: Order Comment: Speci men Type: BLOOD SPECIMEN Ordering Facility: [facility] Address: [address] [place] [address] Performed By: #### 2 4323-8 #### [facility] CLIA [id number] [address] [place] [address] [place] Creatinine and Glomerular filtration rate.predicted panel (S/P/Bld) 31 mL/min/1.73m??? Low >=60 [facility] Comment on above: Order Comment: Speci men Type: BLOOD SPECIMEN Ordering Facility: [facility] Address: [address] [place] [address] Result Comment: Donna mated Glomerular Filtration Rate [...] GFR. Performed By: #### 2 4323-8 #### [facility] CLIA [id number] [address] [place] [address] [place] Glucose [Mass/Vol] 510 mg/dL High 74-99 [facility] Comment on above: Order Comment: Speci men Type: BLOOD SPECIMEN Ordering Facility: [facility] Address: [address] [place] [address] Result Comment: The [place] Diabetes Association (ADA) provides guidance for cutoff [...] Standards of Medical Care in Diabetes 2016, [place] Diabetes Association. Diabetes Care. 2016.39(Suppl 1). Performed By: #### 2 4323-8 #### [facility] CLIA [id number] [facility] [place] [address] [place] Potassium [Moles/Vol] 5.9 mmol/L High 3.7-5.1 [facility] Comment on above: Order Comment: Speci men Type: BLOOD SPECIMEN Ordering Facility: [facility] Address: [address] [place] [address] Performed By: #### 2 4323-8 #### [facility] CLIA [id number] [facility] [place] [address] [place] Protein [Mass/Vol] 8.2 g/dL High 6.3-8.0 [facility] Comment on above: Order Comment: Speci men Type: BLOOD SPECIMEN Ordering Facility: [facility] Address: [address] [place] [address] Performed By: #### 2 4323-8 #### [facility] CLIA [id number] [facility] [place] [address] [place] Sodium [Moles/Vol] 130 mmol/L Low 136-144 [facility] Comment on above: Order Comment: Speci men Type: BLOOD SPECIMEN Ordering Facility: [facility] Address: [address] [place] [address] Performed By: #### 2 4323-8 #### [facility] CLIA [id number] [address] [place] [address] [place] Urea nitrogen [Mass/Vol] 36 mg/dL High 7- [facility] Comment on above: Order Comment: Speci men Type: BLOOD SPECIMEN Ordering Facility: [facility] Address: [address] [place] [address] Performed By: #### 2 4323-8 #### [facility] CLIA [id number] [address] [place] [address] [place] ECG COMPLETEon 06-06-2023 ECG COMPLETE Ventricular Rate : 7 6 BPM Atrial Rate : 76 BPM P-R Interval : 162 ms QRS Duration : 74 ms Q-T Interval : 402 ms QTC Calculation(Bazett) : 452 ms Calculated P [place] : 48 degrees Calculated R [place] : 43 degrees Calculated T [place] : 53 degrees NORMAL SINUS RHYTHM POSSIBLE LEFT ATRIAL ENLARGEMENT BORDERLINE ECG Confirmed by AMANDA DAVID MD ([id number]) on 06/10/2023 4:44:16 PM NAME : AISLINN WHEELER PID : [id number] : 1960 Gender : Female Race : ORD : [id number] Procedure Date : Jun 06 2023 12:04:48 Edit Date : Jun 10 2023 16:44:21 Diagnosis: NORMAL SINUS RHYTHM POSSIBLE LEFT ATRIAL ENLARGEMENT BORDERLINE ECG Confirmed by AMANDA DAVID MD ([id number]) on 06/10/2023 4:44:16 PM Test Reason : Z01.818 Preop examination Location : 145 : [facility] Overread By : AMANDA DAVID MD Edited By : AMANDA DAVID MD Referred By : TAURUS BALLARD Acquired by : Fabio hull [facility] HISTORY PHYSICALon HISTORY PHYSICAL HNO ID: [id number] Author: Jenny Aguilar APRN.CNP Service: ? Author Type: Nurse Practitioner Type: [...] 2 drinks per day. 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 Skin: Negative for lesions, rash and itching. Objective PHYSICAL EXAM: VITALS: BP 174/80 Pulse 76 Temp (Src) 97 (Temporal) Resp 16 Ht 5' 0 (1.52m) Wt 131 lb (59.4kg) SpO2 99% BMI 25.58 kg/(m2). General: Alert and oriented, No acute distress Skin: Normal color, no rash, no lesions. HEENT: EOM, pupils equal, (more content not included)... Normal [facility] HbA1c (Bld)on 06-06-2023 Average glucose Estimated from glycated hemoglobin (Bld) [Mass/Vol] 335 mg/dL Normal [facility] Comment on above: Order Comment: [place] Type: BLOOD SPECIMEN Ordering Facility: [facility] Address: [address] [place] [address] Result Comment: eAG: (Estimated average glucose) is a calculated value from HgbA1c and is chemical sales representative of the average blood glucose level in the last 2-3 month period. Performed By: #### 5 5454-3 #### [facility] CLIA [id number] [address] [place] [address] [place] HbA1c (Bld) [Mass fraction] 13.3 % High 4.3-5.6 [facility] Comment on above: Order Comment: [place] Type: BLOOD SPECIMEN Ordering Facility: [facility] Address: [address] [place] [address] Result Comment: [place] Diabetes Association guidelines indicate that patients with HgbA1c in the range 5.7-6.4% are at increased risk for development of diabetes, and intervention by lifestyle modification may be beneficial. HgbA1c greater or equal to 6.5% is considered diagnostic of diabetes. Performed By: #### 5 5454-3 #### [facility] CLIA [id number] [address] [place] [address] [place] PT panel Coag (PPP)on 2022 INR Coag (PPP) [Relative time] 1.0 {INR} Normal 0.9-1.3 [facility] Comment on above: Order Comment: [place] Type: BLOOD SPECIMEN Ordering Facility: [facility] Address: [address] [place] [address] Result Comment: Laxmi min K Antagonist (VKA) Therapeutic Range: INR 2 to 3 (Target INR of 2.5) Note: For patients treated with VKA drugs, such as warfarin, the [place] [employer] 2012 Guideline recommends [...] CABALLERO, et al. Chest 2012, 141:7S-47S Eligio LEÓN, et al. [facility] 2017, 70: 252-289 Performed By: #### 1 4979-9, 06717-1 #### [facility] CLIA [id number] [address] [place] [address] [place] PT Coag (PPP) [Time] 10.1 s Normal 9.7-13.0 [facility] Comment on above: Order Comment: Speci men Type: BLOOD SPECIMEN Ordering Facility: [facility] Address: [address] [place] [address] Performed By: #### 1 4979-9, 93417-6 #### [facility] CLIA [id number] [address] [place] [address] [place] TYPE AND SCREEN,30 DAYon ABO B Normal [facility] Comment on above: Order Comment: Speci men Type: BLOOD SPECIMEN Ordering Facility: [facility] Address: [address] [place] [address] Performed By: #### T SCR30 #### [facility] CLIA [id number] [address] [place] [address] [place] HISTORICAL AB SCR STATUS Negative Normal [facility] Comment on above: Order Comment: Speci men Type: BLOOD SPECIMEN Ordering Facility: [facility] Address: [address] [place] [address] Performed By: #### T SCR30 #### [facility] CLIA [id number] [address] [place] [address] [place] Rh Nom (Bld) Positive Normal [facility] Comment on above: Order Comment: Speci men Type: BLOOD SPECIMEN Ordering Facility: [facility] Address: [address] [place] [address] Performed By: #### T SCR30 #### [facility] CLIA [id number] [address] [place] [address] [place] aPTT PPPon 06-06-2023 aPTT Coag (PPP) [Time] 28.7 s Normal 23.0-32.4 [facility] Comment on above: Order Comment: Speci men Type: BLOOD SPECIMEN Ordering Facility: [facility] Address: [address] [place] [address] Result Comment: Froz en Plasma Aliquot Performed By: #### 1 4979-9, 43668-3 #### [facility] CLIA [id number] [address] [place] [address] [place] Consent for Procedure/Surger yon 05-22-2023 Consent for Procedure/Surgery [id number] 0CD:127 Normal [facility] Consent for Treatmenton Consent for Treatment [id number] D:127 Normal [facility] Inpatient Patient Summaryon 05-22-2023 Inpatient Patient Summary [place] [id number] Clinical Summary Person Information Name: AISLINN WHEELER Age: 63 Years : 1960 Sex: Female PCP: LATOSHA OLMSTEAD CNP Marital Status: Race: White Ethnicity: Non- or Language: Nepali Visit Id: Visit Reason: MIXED URINARY INCONTINENCE Speciality: Acuity: Enc Type: Outpatient Med Service: Surgery Arrival: 05/22/2023 09:41:57 Discharge: Dispo Type: Address: [address] [place] [address] [phone] Provider Notes: Diagnosis: Feeling of incomplete bladder [...] up: With: Address: When: Lisa Porras [address] [place] [address] [phone] Business (1) [address] [facility], [address] [address] [phone] Business (1) Comments: Office to schedule follow up in 1 month with PVR Patient Education Information: EU - Cystoscopy with Botox Injection Discharge Instructions (CUSTOM) Fabio [facility] IntraOperative Documentson 1 IntraOperative Documents [id number] 0CD:127 Normal [facility] Main OR Intraoperative Recor barbara 05-22-2023 Main OR Intraoperative Record IntraOp Document Type FTURO Summary Primary Physician: Lisa Porras MD Finalized Date/Time: 05/22/23 11:29:32 Pt. Name: AISLINN WHEELER /Sex: 1960 Female Med Rec #: [id number] Physician: Lisa Porras MD Financial #: [id number] Pt. Type: O Room/Bed: / Admit/Disch: 05/22/23 09:41:57 - Institution: Case Times FTURO Entry 1 Patient Times In Room 05/22/23 11:15:00 Out Room 05/22/23 11:30:00 Procedure Times Start 05/22/23 11:22:00 Stop 05/22/23 11:26:00 Anesthesia Times Last Modified By: Katya LE, Marilee Feldman 05/22/23 11:26:29 General Comments: BOTOX 100 UNITS LOT#: [id number] , EXP DATE: 09/2025 -Jessica BLANCO RN Case Attendance FTURO Entry 1 Entry 2 Entry 3 Case Attendee Vern TAVERAS, Lisa Blanco RN, Marilee Solano CST, Diana Feldman Role Performed Surgeon - Primary Customer Insight Analyst - Primary Scrub - Primary Time In 05/22/23 11:15:00 05/22/23 11:15:00 05/22/23 11:15:00 Time Out 05/22/23 11:30:00 05/22/23 11:30:00 05/22/23 11:30:00 Procedure CYSTOSCOPY LOCAL BOTOX CYSTOSCOPY LOCAL BOTOX CYSTOSCOPY LOCAL BOTOX INJECTION(.) INJECTION(.) INJECTION(.) Comments Last Modified By: Katya LE, Marilee Blanco RN, Marilee Blanco RN, Marilee Feldman 05/22/23 Apryl Feldman 05/22/23 Apryl Feldman 05/22/23 11:26:33 11:26:33 11:26:33 Surgical Procedures FTURO Entry 1 Procedure Description Procedure CYSTOSCOPY LOCAL BOTOX Modifiers . INJECTION Surgeon Description CYSTOSCOPY WITH BOTOX 100 UNITS Primary Procedure Yes Primary Surgeon Lisa Porras MD Start 05/22/23 11:22:00 Stop 05/22/23 11:26:00 Anesthesia Type Local Surgical Service Urology Wound Class 2 - Clean-Contaminated Last Modified By: Marilee Blanco RN 05/22/23 11:26:34 General Case Data FTURO Pre-Care [...] Participants Marilee Blanco RN Applicable) Xiomara Cagle ASSISTANT ACCOUNTING MANAGER, Diana A Time Out Complete 05/22/23 11:22:00 Allergies [...] By: Marilee Blanco RN 05/22/23 11:29 Normal [facility] Main OR Preoperative Recordo n 05-22-2023 Main OR Preoperative Record Holding Area Document Type FTURO Summary Primary Physician: Lisa Porras MD Finalized Date/Time: 05/22/23 10:32:24 Pt. Name: AISLINN WHEELER Ashok SweeneyB./Sex: 1960 Female Med Rec #: [id number] Physician: Lisa Porras MD Financial #: [id number] Pt. Type: O Room/Bed: / Admit/Disch: 05/22/23 [...] By: Diana Mcpherson RN 05/22/23 10:32 Normal Nik [facility] Operative Reporton Operative Report Patient: BARBARA WHEELER Age: 63 years Sex: Female : 1960 Associated Diagnoses: None Author: Lisa Porras MD Procedure Operative Information Details: Date/ Time: 05/22/2023 11:29:00. Pre-Op Dx: Feeling of incomplete bladder emptying ([id number]-KA R39.14, Discharge, Medical), Mixed incontinence (DCH23-ZK N39.46, Discharge, Medical), Urinary leakage ([id number] R32, Discharge, Medical). Post-Op Dx: Same. Anesthesia [...] to [facility] in the remote past). Normal [facility] Comment on above: Result Comment: Elec tronically Signed By: Lisa Porras MD.\.br\Date and Time Signed: 05/22/23 11:30 EDT Outpatient Surgery Discharge Instructionon 05-22-2023 Outpatient Surgery Discharge Instruction [place] [address] Patient Discharge Instructions PERSON INFORMATION Name: AISLINN WHEELER Date of : 1960 Current Date: 05/22/2023 11:29:02 PHYSICIANS Admitting Physician: Lisa Porras MD Comment: Discharge Diagnosis: Feeling of incomplete bladder emptying; Mixed incontinence; Urinary leakage LIAMAISLINN Ashok has been given the following list of follow-up instructions, prescriptions, and patient education materials: IF UNABLE TO CONTACT YOUR PHYSICIAN AND YOU FEEL IT IS AN EMERGENCY, GO TO THE NEAREST EMERGENCY ROOM OR CALL 911 Follow up: With: Address: When: Lisa Porras [address] [place] [phone] Business (1) [address] [place] [address] [place] [phone] Business (1) Comments: Office to schedule follow [...] to serve you. Thank you for choosing [facility] Normal [facility] Consultation Noteon 09-29-20 23 Consultation Note [id number] D:127 Normal [facility] A1C HEMOGLOBINon 05-18-2023 HbA1c (Bld) [Mass fraction] 14.0 % [employer] Other [place] 05-18-2023 [facility] Telephone (URR) AISLINN WHEELER ([id number]) 1960 F Date Time Provider Department 05/18/23 TAURUS BALLARDRaquel During your visit today, we recorded the following information about you: Latosha Faulkner 05/18/2023 1:01 PM Signed Consult notes sent back to Dr. Lisa Porras , phone [phone]. From Dr. Ballard office. Allergies As of [...] Encounter Status:Closed by DERIK FERNANDEZ on 06/09/23 [facility] Glucose - FINGER STICKon Glucose [Mass/Vol] 429 mg/dL [employer] Other HbA1c (Bld) [Mass fraction]o n 05-18-2023 A1C HEMOGLOBIN [employer] [facility] Other CNOVon 05-17-2023 [facility] Office Visit (URFHR) AISLINN WHEELER ([id number]) 1960 F Date Time Provider Department 9/27/23 1:10 PM TAURUS BALLARD URR During your visit today, we recorded the following information about you: Temperature Pulse Blood pressure Weight 97.5 degrees 70/minute 172/81 60.1 kg Taurus Ballard MD 05/17/2023 1:35 PM Signed [facility] FOLLOW-UP PATIENT HISTORY AND PHYSICAL [...] 1.92 01/19/[address] scan (outside records) [employer] 09/28/21 IMPRESSION: Since the prior CT scan [...] other structures) (more content not included)... Normal [facility] Urineon 05-13-2023 Bacteria identified Cx Nom (U) [...] Locations R1: This test was performed at: [facility], [address] [place] [address], [address] , , [place] Comment on above: Performed By: #### 2 [id number] #### [facility] [address] [place] [address] Physician Referralon 023 Physician Referral [id number]#1.00CD :127 PATIENT IS SCHEDULED 05/17/2023 [place] Consultation Noteon 05-04-20 23 Consultation Note [id number]#1.00CD :127 [place] Insurance Correspondenceon 0 05-04-2023 Insurance Correspondence [id number]#1.00 CD:127 [place] Urology Office/Clinic Noteon 05-04-2023 Urology Office/Clinic Note [...] mass on Kidney was not cancerous. However college associate told her she has kidney cancer. Denies [...] PSH lap cholecystectomy, open hysterectomy -Continues with college associate for CKD3 1. Renal cyst (N28.1: Cyst [...] pt to tertiary center, Dr. Ballard at [facility] for evaluation of robotic left cyst decortication -Pt states college associate told her she has cancer. 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 Ordered: [id number] Measure Post Void residual urine and/or bladder capacity by US- non-imaging Urnls Dip Stick Auto w/o Microscopy POC 75436 2. Mixed incontinence (N39.46: Mixed incontinence) Pt [...] of Botox. (more content not included)... Normal [facility] Comment on above: Result Comment: Elec tronically Signed By: Lisa Porras MD\.br\Date and Time Signed: 05/04/23 14:11 EDT Ambulatory Visit Summaryon 0 05-03-2023 Ambulatory Visit Summary AISLINN WHEELER :1960 Visit Date:05/03/2023 Ambulatory Visit Instructions Your Diagnosis Renal mass Renal cyst Mixed incontinence Feeling of incomplete bladder emptying Glucosuria Tests Performed Urnls Dip Stick Auto w/o Microscopy POC 93861 Your Care Team Attending Physician - Lisa [...] Follow-Up Appointments Monday 12:30 PM EDT Where: [facility] Monday 10:30 AM EDT Where: [facility] You Need to Schedule the Following Appointments Follow Up with Lisa Porras MD, URL, URO When: Comments: Sched Botox. Where: Medications What How Much When Instructions New cephalexin (Keflex 500 mg Cap) 1 Capsules By Mouth 2 times a day Duration: 3 Days Start one day prior to procedure Pickup at [facility] New estradiol topical (Estrace 0.1 mg/ g Cream) See instructions Refills: 3 apply pea size amount to urethra/ inner vagina 3x/ week x 1 month, then 2x/ week for maintainence Pickup at [facility] Unchanged trospium (trospium 20 mg oral [...] physician if questions or concerns Pharmacy Information [facility] [address]: [address], [place] [id number] [phone] Test Results Urnls Dip Stick Auto w/o Microscopy POC 87060 (05/03/2023) Bilirubin Urine Dipstick - Negative Blood Urine Dipstick - Trace-intact Glucose Urine Dipstick - 3+ 1000 mg/dl Ketones Urine Dipstick - Negative Leukocytes Urine Dipstick - Negative Nitrite Urine Dipstick - Negative Protein Urine Dipstick - Trace Specific [place] Urine Dipstick - 1.015 Urine Appearance Urine [...] are saf (more content not included)... Normal [facility] Patient Educationon 05-03-20 Patient Education Obstetrics [...] provider. Document Revised: 12/16/2021 Document Reviewed: 12/16/2021 [employer] Patient Education ? 2022 [employer] Normal [facility] [place] 05-03-2023 Screens [id number]#1.00 CD:127 Normal [facility] C Urineon 04-20-2023 Bacteria identified Cx Nom [...] Locations R1: This test was performed at: [facility], [address] [place] [address], [address]- , , [place] Comment on above: Performed By: #### 2 [id number] #### [facility] [address] [place] [address] Ambulatory Visit Summaryon 0 04-18-2023 Ambulatory Visit [...] Lisa Porras MD Where: [facility] [place] 02-23-2023 Screens [id number]#1.00 CD:127 [place] Ambulatory Visit Summaryon 0 02-22-2023 Ambulatory Visit Summary AISLINN WHEELER :1960 Visit Date:02/22/2023 Ambulatory Visit Instructions Your Diagnosis Renal mass Renal cyst Mixed incontinence Feeling of incomplete bladder emptying Glucosuria Tests Performed Urnls Dip Stick Auto w/o Microscopy POC 38235 Your Care Team Attending Physician - Lisa [...] TAVERAS, Lisa Montiel Where: [facility] [place] Normal [facility] Patient Educationon 02-23-20 Patient Education Obstetrics [...] provider. Document Revised: 12/16/2021 Document Reviewed: 12/16/2021 [employer] Patient Education ? 2022 [employer] Respi [facility] Urology Office/Clinic Noteon 02-22-2023 Urology Office/Clinic [...] request) Cr 02/13/23- 1.78 EGFR ADRIEL 02/13/23- Pt states she stopped Myrbetriq due to [...] PSH lap cholecystectomy, open hysterectomy -Continues with college associate after referred last visit 1. Renal mass [...] septations without enhancement. 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 Normal [facility] Comment on above: Result Comment: Elec tronically Signed By: Lisa Porras MD.br\Date and Time Signed: 02/22/23 10:14 EDT\.br\Electronically Co-Signed By: Marilee Gray.br\Date and Time Co-Signed: 02/22/23 09:36 EDT Lab Reportson 02-20-2023 Lab Reports [id number]#1.00C D:127 Normal [facility] RAD - CT Reporton 02-20-2023 RAD - CT Report [id number]#1.00CD :127 Normal [facility] Physician Orderon 02-01-2023 Physician Order [id number]#1.00CD :127 Normal [facility] Consultation Noteon 01-08-20 Consultation Note [id number]#1.00C D:127 Normal [facility] XR FOOT LT MIN 3 VIEWSon XR FOOT LT MIN [address] [facility] MG MAMM SCREEN 3D ALINE CADon 12-28-2022 MG MAMM SCREEN 3D ALINE CAD Normal [facility] XR DEXA BONE DENSITYon 12-28 XR DEXA BONE DENSITY Normal [facility] NM STRESS/REST MULTIon 12-15 NM STRESS/REST MULTI Normal [facility] XR FOOT LT MIN 3 VIEWSon XR FOOT LT MIN 3 VIEWS Normal [facility] Physician Referralon 023 Physician Referral [id number]#1.00C D:127 Normal [facility] CT FOOT LT WO CONon 10-28-19 CT FOOT LT WO CON Normal [facility] XR FOOT LT MIN 3 VIEWSon XR FOOT LT MIN [address] [facility] XR FOOT LT MIN 3 VIEWSon XR FOOT LT MIN [address] [facility] XR FOOT LT MIN 3 VIEWSon XR FOOT LT MIN [address] [facility] XR FOOT LT MIN 3 VIEWSon XR FOOT LT MIN [address] [facility] XR FOOT LT MIN 3 VIEWSon XR FOOT LT MIN [address] [facility] US KIDNEYSon 09-15-2022 US KIDNEYS Normal [facility] XR FOOT LT MIN 3 VIEWSon XR FOOT LT MIN [address] [facility] XR FOOT LT MIN 3 VIEWSon XR FOOT LT MIN [address] [facility] XR FOOT LT MIN 3 VIEWSon XR FOOT LT MIN [address] [facility] CBC AUTO DIFFon 08-03-2022 BASO # 0.0 103/ul Normal 0.0-0.1 [facility] Comment on above: Performed By: #### C BC ####[facility] [address] [place] [address]Dr. Ricardo Rocha Basophils/100 WBC (Bld) 0.5 % Normal 0.2-2.[address] [facility] Comment on above: Performed By: #### C BC ####[facility] [address] [place], [place] [address]Dr. Ricardo Rocha EO # 0.1 103/ul Normal 0.0-0.[address] [facility] Comment on above: Performed By: #### C BC ####[facility] [address] [place], [place] [address]Dr. Ricardo Rocha Eosinophils/100 WBC (Bld) 1.2 % Normal 0.9-7.[address] [facility] Comment on above: Performed By: #### C BC ####[facility] [address] [place], [place] [address]Dr. Ricardo Rocha Erythrocyte distribution width (RBC) [Ratio] 15.0 % Normal 11.0-15.0 [facility] Comment on above: Performed By: #### C BC ####[facility] [address] [place], [place] [address]Dr. Ricardo Rocha Hematocrit (Bld) [Volume fraction] 29.5 % Critically low 36.0-48.0 [facility] Comment on above: Performed By: #### C BC ####[facility] [address] [place], [place] [address]Dr. Ricardo Rocha Hemoglobin (Bld) [Mass/Vol] 9.3 g/dL Critically low 12.0-16.[address] [facility] Comment on above: Performed By: #### C BC ####[facility] [address] [place], [place] [address]Dr. Ricardo Rocha IG # 0.04 10e3/ul Critically high 0.00-0.03 [facility] Comment on above: Performed By: #### C BC ####[facility] [address] [place] [address]Dr. Nanomarcial Rocha IG % 0.5 % Normal 0.0-0.5 [facility] Comment on above: Performed By: #### C BC ####[facility] [address] [place] [address]Dr. Rciardo Aj LYMPH # 1.4 103/ul Normal 1.2-3.8 [facility] Comment on above: Performed By: #### C BC ####[facility] [address] [place] [address]Dr. Nanomarcial Rocha Lymphocytes/100 WBC (Bld) 17.2 % Critically low 20.5-60.0 [facility] Comment on above: Performed By: #### C BC ####[facility] [address] [place] [address]Dr. Ricardo Rocha MANUAL DIFF REQ NO Normal [facility] Comment on above: Performed By: #### C BC ####[facility] [address] [place] [address]Dr. Ricardo Aj MCH (RBC) [Entitic mass] 25.2 pg Critically low 26.7-34.0 [facility] Comment on above: Performed By: #### C BC ####[facility] [address] [place] [address]Dr. Ricardo Aj MCHC (RBC) [Mass/Vol] 31.5 g/dL Normal 29.9-35.2 [facility] Comment on above: Performed By: #### C BC ####[facility] [address] [place] [address]Dr. Nanomarcial Rocha MCV (RBC) [Entitic vol] 79.9 fL Critically low 81.0-99.0 [facility] Comment on above: Performed By: #### C BC ####[facility] [address] [place] [address]Dr. Ricardo Rocha MONO # 0.6 103/ul Normal 0.3-0.8 [facility] Comment on above: Performed By: #### C BC ####[facility] [address] [place] [id number]. Ricardo Rocha Monocytes/100 WBC (Bld) 7.6 % Normal 1.7-12.[address] [facility] Comment on above: Performed By: #### C BC ####[facility] [address] [place] [id number]. Ricardo Rocha NEUT # 5.9 103/ul Normal 1.4-6.[address] [facility] Comment on above: Performed By: #### C BC ####[facility] [address]gcc[address]24[address] [place] [id number]. Ricardo Rocha Neutrophils/100 WBC (Bld) 73.0 % Normal 43.0-75.[address] [facility] Comment on above: Performed By: #### C BC ####[facility] [address] [place] [id number]. Ricardo Rocha Platelet mean volume (Bld) [Entitic vol] 11.4 fL Normal 9.5-13.[address] [facility] Comment on above: Performed By: #### C BC ####[facility] [address] [place] [id number]. Ricardo Rocha PLT 253 103/ul Normal 150-[address] [facility] Comment on above: Performed By: #### C BC ####[facility] [address] [place] [id number]. Ricardo Rocha RBC 3.69 106/ul Critically low 4.20-5.40 [facility] Comment on above: Performed By: #### C BC ####[facility] Cdgexjuexn45[address] [place] [id number]. Ricardo Rocha WBC 8.0 103/ul Normal 4.0-11.[address] [facility] Comment on above: Performed By: #### C BC ####[facility] [address]is[address] [place] [address]Dr. Ricardo Rocha CRPon 08-03-2022 CRP 3.1 mg/dL Critically high <=1.0 [facility] Comment on above: Performed By: #### C RP, BMP, URIC ####[facility] Qtqawosx[address] [place], [place] [address]Dr. Ricardo Rocha CULTURE BLOODon 08-03-2022 Microscopic examination of blood, culture Culture Observations: NO GROWTH AT 5 DAYS. Normal [facility] Comment on above: Performed By: #### B LDCX2 ####[facility] [address] [place], [place] [address]Dr. Ricardo Rocha Microscopic examination of blood, culture Culture Observations: NO GROWTH AT 5 DAYS. Normal [facility] Comment on above: Performed By: #### B LDCX1 ####[facility] [address] [place], [place] [address]Dr. Ricardo Rocha ER URINE PROFILEon 2 Bilirubin Ql (U) Negative Normal NEGATIVE [facility] Comment on above: Performed By: #### E RUR ####[facility] [address] [place], [place] [address]Dr. Nanomarcial Rocha Clarity (U) CLEAR Normal CLEAR [facility] Comment on above: Performed By: #### E RUR ####[facility] [address] [place], [place] [address]Dr. Nanomarcial Rocha Color (U) LT. YELLOW Normal YELLOW [facility] Comment on above: Performed By: #### E RUR ####[facility] [address] [place], [place] [address]Dr. Ricardo Rocha ERUAHD A micrscopic examination will be performed if indicated. Normal [facility] Comment on above: Performed By: #### E RUR ####[facility] [address]vb[address] [place], [place] [address]Dr. Ricardo Rocha Glucose Ql (U) 100 mg/dl Abnormal NEGATIVE [facility] Comment on above: Performed By: #### E RUR ####[facility] [address]auu[address] [place], [place] [address]Dr. Ricardo Rocha Hemoglobin Ql (U) Negative Normal NEGATIVE [facility] Comment on above: Performed By: #### E RUR ####[facility] L[address]ckcuua[address] [place], [place] [address]Dr. Ricardo Rocha Ketones Ql (U) Negative Normal NEGATIVE [facility] Comment on above: Performed By: #### E RUR ####[facility] [address] [place] [address]Dr. Ricardo Rocha LEUKOCYTES Negative Normal NEGATIVE [facility] Comment on above: Performed By: #### E RUR ####[facility] T[address]lmry[address] [place] [address]Dr. Ricardo Rocha Nitrite Ql (U) Negative Normal NEGATIVE [facility] Comment on above: Performed By: #### E RUR ####[facility] I[address] [place], [place] [address]Dr. Ricardo Aj pH (U) 6.0 [pH] Normal 5-9 [facility] Comment on above: Performed By: #### E RUR ####[facility] [address]osfhpl[address] [place], [place] [address]Dr. Ricardo Rocha SPEC GRAVITY 1.010 Normal 1.005-<=1.02 5 [facility] Comment on above: Performed By: #### E RUR ####[facility] Cdglkeav[address] [place], [place] [address]Dr. Ricardo Rocha UA PROTEIN Negative Normal NEGATIVE/ TRACE [facility] Comment on above: Performed By: #### E RUR ####[facility] [address]sm[address] [place], [place] [address]Dr. Ricardo Rocha UR MICRO IND NOT INDICATED Normal [facility] Comment on above: Performed By: #### E RUR ####[facility] [address]emxq[address] [place], [place] [address]Dr. Ricardo Aj Urobilinogen Qn (U) 0.2 {Madeleine'U}/dL Normal 0.2 - 1. 0 [facility] Comment on above: Performed By: #### E RUR ####[facility] [address]tw[address] [place], [place] [address]Dr. Ricardo Rocha LACTATE/LACTIC ACIDon 2021 Lactate [Moles/Vol] 0.5 mmol/L Normal 0.4-1.9 [facility] Comment on above: Performed By: #### L ACT ####[facility] [address] [place] [address]Dr. Ricardo Rocha PROF CHEM 8 (BAS METB)on Anion gap [Moles/Vol] 12.9 mmol/L Normal [facility] Comment on above: Performed By: #### C RP, BMP, URIC ####[facility] Insem[address] [place] [address]Dr. Ricardo Aj Calcium [Mass/Vol] 9.0 mg/dL Normal 8.5-10.1 [facility] Comment on above: Performed By: #### C RP, BMP, URIC ####[facility] [address]nv[address]ngv[address] [place] [address]Dr. Ricardo Rocha Chloride [Moles/Vol] 102 mmol/L Normal 98-107 [facility] Comment on above: Performed By: #### C RP, BMP, URIC ####[facility] [address]cjzhm[address] [place] [address]Dr. Ricardo oRcha CO2 [Moles/Vol] 23.9 mmol/L Normal 21.0-32.0 [facility] Comment on above: Performed By: #### C RP, BMP, URIC ####[facility] [address] [place] [address]Dr. Ricardo Rocha Creatinine [Mass/Vol] 1.36 mg/dL Critically high 0.55-1.02 [facility] Comment on above: Performed By: #### C RP, BMP, URIC ####[facility] [address]vugzg[address] [place] [address]Dr. Ricardo Rocha EGFR-AF ANDORRAN 47 mL/min/1.73m2 Critically low >=[address] [facility] Comment on above: Performed By: #### C RP, BMP, URIC ####[facility] [address]j4[address] [place] [address]Dr. Ricardo Rocha EGFR-NON AF ANDORRAN 39 mL/min/1.73m2 Critically low >=[address] [facility] Comment on above: Performed By: #### C RP, BMP, URIC ####[facility] [address]ers[address] [place] [address]Dr. Ricardo Rocha Glucose [Mass/Vol] 125 mg/dL Critically high 74-106 [facility] Comment on above: Performed By: #### C RP, BMP, URIC ####[facility] Mptyrreumb[address]42 [place] [address]Dr. Ricardo Rocha Potassium [Moles/Vol] 4.8 mmol/L Normal 3.5-5.1 [facility] Comment on above: Performed By: #### C RP, BMP, URIC ####[facility] [address]amnr25[address] [place] [address]Dr. Nanomarcial Aj Sodium [Moles/Vol] 134 mmol/L Critically low 136-145 [facility] Comment on above: Performed By: #### C RP, BMP, URIC ####[facility] Q[address]zyzacoiz[address] [place] [address]Dr. Ricardo Rocha Urea nitrogen [Mass/Vol] 22.0 mg/dL Critically high 7.0-18.0 [facility] Comment on above: Performed By: #### C RP, BMP, URIC ####[facility] Ttdodgitxf[address] [place] [address]Dr. Nanomarcial Aj Urea nitrogen/Creatinine [Mass ratio] 16.2 mg/mg Normal [facility] Comment on above: Performed By: #### C RP, BMP, URIC ####[facility] Spfocxidzx[address] [place] [address]Dr. Nanomarcial Aj SED RATE WESTERGRENon 2021 SED RATE 95 mm/hr Critically high <=30 [facility] Comment on above: Performed By: #### S EDR ####[facility] [address]tsi[address] [place], [place] [address]Dr. Ricardo Rocha URIC ACID SERUMon 08-03-2022 Urate [Mass/Vol] 4.7 mg/dL Normal 2.6-6.0 [facility] Comment on above: Performed By: #### C RP, BMP, URIC ####[facility] [address] [place], [place] [address]Dr. Ricardo Rocha XR FOOT LT MIN 3 VIEWSon XR FOOT LT MIN [address] [facility] PROF CHEM 8 (BAS METB)on Anion gap [Moles/Vol] 13.8 mmol/L Normal [facility] Comment on above: Performed By: #### B MP ####[facility] [address]sxrwsmlqn[address] [place] [address]Dr. Ricardo Rocha Calcium [Mass/Vol] 8.9 mg/dL Normal 8.5-10.1 [facility] Comment on above: Performed By: #### B MP ####[facility] J[address]wnwpo[address] [place] [address]Dr. Ricardo Rocha Chloride [Moles/Vol] 101 mmol/L Normal 98-107 [facility] Comment on above: Performed By: #### B MP ####[facility] R[address]ioitdf[address] [place] [address]Dr. Ricardo Rocha CO2 [Moles/Vol] 22.8 mmol/L Normal 21.0-32.0 [facility] Comment on above: Performed By: #### B MP ####[facility] [address]if[address] [place], [place] [address]Dr. Ricardo Rocha Creatinine [Mass/Vol] 1.43 mg/dL Critically high 0.55-1.02 [facility] Comment on above: Performed By: #### B MP ####[facility] [address]qqwvyn[address] [place] [address]Dr. Ricardo Rocha EGFR-AF ANDORRAN 45 mL/min/1.73m2 Critically low >=[address] [facility] Comment on above: Performed By: #### B MP ####[facility] [address]kezjfua24[address] [place] [id number]. Ricardo Rocha EGFR-NON AF ANDORRAN 37 mL/min/1.73m2 Critically low >=60 [facility] Comment on above: Performed By: #### B MP ####[facility] Dqwnqtmiys4652 [place] [address]DrIrina Rocha Glucose [Mass/Vol] 279 mg/dL Critically high 74-106 [facility] Comment on above: Performed By: #### B MP ####[facility] [address]xhechfx3[address] [place] [address]Dr. Nanomarcial Rocha Potassium [Moles/Vol] 4.6 mmol/L Normal 3.5-5.1 [facility] Comment on above: Performed By: #### B MP ####[facility] [address]uynlbvd16[address] [place] [address]Dr. Nanomarcial Aj Sodium [Moles/Vol] 133 mmol/L Critically low 136-145 [facility] Comment on above: Performed By: #### B MP ####[facility] [address] [place], [place] [address]Dr. Nanomarcial Aj Urea nitrogen [Mass/Vol] 24.0 mg/dL Critically high 7.0-18.0 [facility] Comment on above: Performed By: #### B MP ####[facility] [address]brqcns[address] [place], [place] [address]Dr. Ricardo Rocha Urea nitrogen/Creatinine [Mass ratio] 16.8 mg/mg Normal [facility] Comment on above: Performed By: #### B MP ####[facility] [address]kt[address] [place], [place] [address]Dr. Ricardo Rocha ACID FAST SMEAR AND CXon Acid Fast Culture Negative [facility] Comment on above: Result Comment: No a amilcar fast bacilli isolated after 6 weeks. Performed By: #### A FB ####[facility] [address] [place], [place] [address]Dr. Ricardo Rocha Acid Fast Smear Negative Normal [facility] Comment on above: Performed By: #### A FB ####[facility] [address] [place], [place] [address]Dr. Ricardo Rocha [employer] Specimen Processing Direct Inoculation [facility] Comment on above: Performed By: #### A FB ####[facility] [address] [place], [place] [address]Dr. Ricardo Rocha [employer] Specimen Processing Tissue Grinding [facility] Comment on above: Performed By: #### A FB ####[facility] [address]wueku[address] [place] [address]Dr. Ricardo Rocha FUNGAL CULTUREon 07-11-2022 Fungus (Mycology) Culture Final report Normal [facility] Comment on above: Performed By: #### C XFUN ####[facility] [address]sm[address]xkj[address] [place] [address]Dr. Ricardo Aj Fungus Stain Final report Normal [facility] Comment on above: Performed By: #### C XFUN ####[facility] Z[address]scpyfhft[address] [place] [address]Dr. Ricardo Rocha Result 1 Comment Normal [facility] Comment on above: Result Comment: AAYUSH/ Calcofluor preparation: no fungus observed. Performed By: #### C XFUN ####[facility] [address]zvuty[address] [place], [place] [address]Dr. Nanomarcial Rocha Result Comment: No y east or mold isolated after 4 weeks. PROF CHEM 8 (BAS METB)on Anion gap [Moles/Vol] 15.1 mmol/L Normal [facility] Comment on above: Performed By: #### B MP ####[facility] [address] [place], [place] [address]Dr. Ricardo Rocha Calcium [Mass/Vol] 9.0 mg/dL Normal 8.5-10.1 [facility] Comment on above: Performed By: #### B MP ####[facility] [address]vayqe[address] [place], [place] [address]Dr. Ricardo Rocha Chloride [Moles/Vol] 101 mmol/L Normal 98-107 [facility] Comment on above: Performed By: #### B MP ####[facility] Jequencvgn[address] [place], [place] [address]Dr. Ricardo Rocha CO2 [Moles/Vol] 18.5 mmol/L Critically low 21.0-32.0 [facility] Comment on above: Performed By: #### B MP ####[facility] Slulfslxhb8[address] [place], [place] [address]Dr. Ricardo Rocha Creatinine [Mass/Vol] 2.05 mg/dL Critically high 0.55-1.02 [facility] Comment on above: Performed By: #### B MP ####[facility] Uyhtfcrkke8081 [place] [id number]. Nanomarcial Aj EGFR-AF ANDORRAN 30 mL/min/1.73m2 Critically low >=60 [facility] Comment on above: Performed By: #### B MP ####[facility] Fjldwkbwpm2401 [place] [id number]. Nanomarcial Aj EGFR-NON AF ANDORRAN 24 mL/min/1.73m2 Critically low >=60 [facility] Comment on above: Performed By: #### B MP ####[facility] Wlsjqddkty7849 [place] [address]Dr. Ricardo Rocha Glucose [Mass/Vol] 134 mg/dL Critically high 74-106 [facility] Comment on above: Performed By: #### B MP ####[facility] Uuavabxhgb2190 [place] [address]Dr. Ricardo Rocha Potassium [Moles/Vol] 5.6 mmol/L Critically high 3.5-5.1 [facility] Comment on above: Performed By: #### B MP ####[facility] Lzorjjrvfx13[address] [place], [place] [address]Dr. Ricardo Rocha Sodium [Moles/Vol] 129 mmol/L Critically low 136-145 [facility] Comment on above: Performed By: #### B MP ####[facility] Hrbrmefans0850 [place] [address]Dr. Ricardo Rocha Urea nitrogen [Mass/Vol] 57.0 mg/dL Critically high 7.0-18.0 [facility] Comment on above: Performed By: #### B MP ####[facility] Geujldarfe5327 [place] [address]Dr. Ricardo Rocha Urea nitrogen/Creatinine [Mass ratio] 27.8 mg/mg Normal [facility] Comment on above: Performed By: #### B MP ####[facility] Afoqlmowns1125 [place] [address]Dr. Ricardo Rocha CBC AUTO DIFFon 07-06-2022 BASO # 0.0 103/ul Normal 0.0-0.1 [facility] Comment on above: Performed By: #### C BC ####[facility] Dlutkyowhg1955 [place] [address]Dr. Ricardo Rocha Basophils/100 WBC (Bld) 0.6 % Normal 0.2-2.[address] [facility] Comment on above: Performed By: #### C BC ####[facility] Kweiyyphpo[address] [place], [place] [address]Dr. Ricardo Rocha EO # 0.1 103/ul Normal 0.0-0.[address] [facility] Comment on above: Performed By: #### C BC ####[facility] Alfqkxtbwz[address] [place], [place] [address]Dr. Ricardo Rocha Eosinophils/100 WBC (Bld) 1.7 % Normal 0.9-7.[address] [facility] Comment on above: Performed By: #### C BC ####[facility] Uyafpdzhcs[address] [place], [place] [address]Dr. Ricardo Rocha Erythrocyte distribution width (RBC) [Ratio] 15.2 % Critically high 11.0-15.0 [facility] Comment on above: Performed By: #### C BC ####[facility] Xmpfhkaspo9[address] [place], [place] [address]Dr. Ricardo Rocha Hematocrit (Bld) [Volume fraction] 34.6 % Critically low 36.0-48.0 [facility] Comment on above: Performed By: #### C BC ####[facility] Oexjmejebj[address] [place], [place] [address]Dr. Ricardo Rocha Hemoglobin (Bld) [Mass/Vol] 10.5 g/dL Critically low 12.0-16.[address] [facility] Comment on above: Performed By: #### C BC ####[facility] Lotnmhqplp[address] [place], [place] [address]Dr. Ricardo Aj IG # 0.01 10e3/ul Normal 0.00-0.[address] [facility] Comment on above: Performed By: #### C BC ####[facility] Jzgkpelzhn5[address] [place], [place] [address]Dr. Nanomarcial Rocha IG % 0.2 % Normal 0.0-0.5 [facility] Comment on above: Performed By: #### C BC ####[facility] Bdwnxjstgi0149 [place] [address]Dr. Ricardo Aj LYMPH # 2.4 103/ul Normal 1.2-3.8 [facility] Comment on above: Performed By: #### C BC ####[facility] Gnldsrcbem3142 [place] [phone]. Ricardo Rocha Lymphocytes/100 WBC (Bld) 44.4 % Normal 20.5-60.0 [facility] Comment on above: Performed By: #### C BC ####[facility] Ghecrfwhbz2913 [place] [address]DrIrina Rocha MANUAL DIFF REQ NO Normal [facility] Comment on above: Performed By: #### C BC ####[facility] Iwxqjipmtv9500 [place] [address]Dr. Ricardo Rocha MCH (RBC) [Entitic mass] 25.0 pg Critically low 26.7-34.0 [facility] Comment on above: Performed By: #### C BC ####[facility] Pdlcggtxhf8485 [place] [address]Dr. Ricardo Rocha MCHC (RBC) [Mass/Vol] 30.3 g/dL Normal 29.9-35.2 [facility] Comment on above: Performed By: #### C BC ####[facility] Gctlupxsec1169 [place] [address]DrIrina Rocha MCV (RBC) [Entitic vol] 82.4 fL Normal 81.0-99.0 [facility] Comment on above: Performed By: #### C BC ####[facility] Xynlkldobk2454 [place] [phone] Rocha MONO # 0.3 103/ul Normal 0.3-0.8 [facility] Comment on above: Performed By: #### C BC ####[facility] Trumupxkya8690 [place] [phone]. Ricardo Rocha Monocytes/100 WBC (Bld) 5.1 % Normal 1.7-12.0 [facility] Comment on above: Performed By: #### C BC ####[facility] Gbhttkwtoh2448 [place] [address]Dr. Ricardo Rocha NEUT # 2.5 103/ul Normal 1.4-6.5 [facility] Comment on above: Performed By: #### C BC ####[facility] Vjbfhiyncw7312 [place] [phone]. Ricardo Rocha Neutrophils/100 WBC (Bld) 48.0 % Normal 43.0-75.0 [facility] Comment on above: Performed By: #### C BC ####[facility] Njvqgpdosl9058 [place] [address]Dr. Ricardo Rocha Platelet mean volume (Bld) [Entitic vol] 10.7 fL Normal 9.5-13.5 [facility] Comment on above: Performed By: #### C BC ####[facility] Nuillbtjyv1510 [place] [address]Dr. Ricardo Rocha PLT 261 103/ul Normal 150-450 [facility] Comment on above: Performed By: #### C BC ####[facility] Sbvrlcaflq[address] [place], [place] [address]Dr. Ricardo Rocha RBC 4.20 106/ul Normal 4.20-5.40 [facility] Comment on above: Performed By: #### C BC ####[facility] Xcndizoahu60[address] [place], [place] [address]Dr. Ricardo Rocha WBC 5.3 103/ul Normal 4.0-11.0 [facility] Comment on above: Performed By: #### C BC ####[facility] Zrovgsujvv1317 [place] [phone]. Ricardo Rocha GLYCOHEMOGLOBIN A1Con 2021 ADA RECOMMENDATION SEE BELOW Normal [facility] Comment on above: Result Comment: ADA RECOMMENDED LIMIT 4.0 - 6.0 ADA THERAPEUTIC TARGET < 7.0 ACTION SUGGESTED > 7.0 Performed By: #### A 1C ####[facility] Hvbpnjwycj[address] [place], [place] [address]DrIrina Rocha Glucose [Mass/Vol] 289 mg/dL Normal [facility] Comment on above: Performed By: #### A 1C ####[facility] Zzmhsifldy3009 [place], [place] [address]ZvIrina Ricardo Rocha HbA1c (Bld) [Mass fraction] 11.7 % Critically high 4.5-6.2 [facility] Comment on above: Performed By: #### A 1C ####[facility] Qhmervnfvi2045 [place] [phone] Rocha LIPID PROFILEon 07-06-2022 CHOL-HDL RATIO NORM SEE BELOW Normal [facility] Comment on above: Result Comment: 3.3 - 4.4 LOW RISK 4.4 - 7.1 AVERAGE RISK 7.1 - 11.0 MODERATE RISK >11.0 HIGH RISK Performed By: #### T SH, CMP, LIPID ####[facility] Zwihhiropc3652 [place] [phone]. Ricardo Rocha Cholesterol [Mass/Vol] 284 mg/dL Critically high <=200 [facility] Comment on above: Performed By: #### T SH, CMP, LIPID ####[facility] Wedkfpacok8938 [place], [place] [address]Ie. Ricardo Rocha Cholesterol in HDL [Mass/Vol] 40 mg/dL Normal 40-60 [facility] Comment on above: Performed By: #### T SH, CMP, LIPID ####[facility] Zvevzjahkl7780 [place] [phone]. Ricardo Rocha Cholesterol in LDL [Mass/Vol] 167.8 mg/dL Normal [facility] Comment on above: Performed By: #### T SH, CMP, LIPID ####[facility] Rqktgidsym2074 [place], [place] [address]Ng. Ricardo Rocha Cholesterol.total/Ch olesterol in HDL [Mass ratio] 7.1 {ratio} Normal [facility] Comment on above: Performed By: #### T SH, CMP, LIPID ####[facility] Twzodbcnff3543 [place], [place] [address]Dc. Ricardo Rocha HDL NORMAL > or = 60 mg/dl - LO W CARDIOVASCULAR RISK <40 mg/dl - HIGH CARDIOVASCULAR RISK Normal [facility] Comment on above: Performed By: #### T SH, CMP, LIPID ####[facility] Ohbmxaeean6746 [place] [address]Dr. Ricardo Rocha LDL CALC NORMAL SEE BELOW Normal [facility] Comment on above: Result Comment: <100 mg/dl OPTIMAL 100 - 129 mg/dl NEAR OR ABOVE OPTIMAL 130 - 159 mg/dl BORDERLINE HIGH 160 - 189 mg/dl HIGH >190 mg/dl VERY HIGH Performed By: #### T SH, CMP, LIPID ####[facility] Tuelxxlvze5348 [place] [address]Dr. Ricardo Rocha Triglyceride [Mass/Vol] 381 mg/dL Critically high <=[address] [facility] Comment on above: Performed By: #### T SH, CMP, LIPID ####[facility] Gkwnidgxho1390 [place] [address]Dr. Ricardo Rocha VLDL CALC 76.2 mg/dL Normal [facility] Comment on above: Performed By: #### T SH, CMP, LIPID ####[facility] Fhirrizvkm9668 [place] [address]Dr. Ricardo Rocha MICROALBUMIN, RAND URon - mALB <1.3 Normal <=30.0 [facility] Comment on above: Performed By: #### M ALBR ####[facility] Yjjtqmlmoy2136 [place] [address]Dr. Ricardo Rocha PROF 14(COMP METB)on 022 Albumin [Mass/Vol] 3.3 g/dL Critically low 3.4-5.0 [facility] Comment on above: Performed By: #### T SH, CMP, LIPID ####[facility] Efayqyltzd0681 [place] [address]Dr. Ricardo Rocha Albumin/Globulin [Mass ratio] 0.5 {ratio} Normal [facility] Comment on above: Performed By: #### T SH, CMP, LIPID ####[facility] Zxhcazcqbi2959 [place] [phone]. Ricardo Rocha ALP [Catalytic activity/Vol] 129 U/L Critically high 46-116 [facility] Comment on above: Performed By: #### T SH, CMP, LIPID ####[facility] Rhfkdgcgkp0068 [place] [address]Dr. Ricardo Rocha ALT [Catalytic activity/Vol] 22 U/L Normal 14-59 [facility] Comment on above: Performed By: #### T SH, CMP, LIPID ####[facility] Ockuuawysz6811 [place] [address]Dr. Ricardo Rocha Anion gap [Moles/Vol] 16.1 mmol/L Normal [facility] Comment on above: Performed By: #### T SH, CMP, LIPID ####[facility] Cqrtunikao1704 [place] [address]Dr. Ricardo Rocha AST [Catalytic activity/Vol] 22 U/L Normal 15-37 [facility] Comment on above: Performed By: #### T SH, CMP, LIPID ####[facility] Thxnxlurtz0969 [place] [address]Dr. Ricardo Rocha Bilirubin [Mass/Vol] 0.2 mg/dL Normal 0.2-1.[address] [facility] Comment on above: Performed By: #### T SH, CMP, LIPID ####[facility] Uxplhgsapz[address] [place], [place] [address]Dr. Ricardo Rocha Calcium [Mass/Vol] 9.4 mg/dL Normal 8.5-10.1 [facility] Comment on above: Performed By: #### T SH, CMP, LIPID ####[facility] Warkgipkvx9470 [place] [address]Dr. Ricardo Rocha Chloride [Moles/Vol] 102 mmol/L Normal 98-[address] [facility] Comment on above: Performed By: #### T SH, CMP, LIPID ####[facility] Iiyuxaralm6147 [place] [address]Dr. Ricardo Rocha CO2 [Moles/Vol] 18.4 mmol/L Critically low 21.0-32.[address] [facility] Comment on above: Performed By: #### T SH, CMP, LIPID ####[facility] [address]bebqwazye[address] [place], [place] [address]Dr. Ricardo Rocha Creatinine [Mass/Vol] 2.01 mg/dL Critically high 0.55-1.02 [facility] Comment on above: Performed By: #### T SH, CMP, LIPID ####[facility] Fkahpdjiiv1641 [place] [address]Dr. Ricardo Rocha EGFR-AF ANDORRAN 30 mL/min/1.73m2 Critically low >=60 [facility] Comment on above: Performed By: #### T SH, CMP, LIPID ####[facility] Iizzhmekri7226 [place] [address]Dr. Ricardo Rocha EGFR-NON AF ANDORRAN 25 mL/min/1.73m2 Critically low >=60 [facility] Comment on above: Performed By: #### T SH, CMP, LIPID ####[facility] Chrfbuweid3088 [place] [address]Dr. Nanomarcial Rocha Globulin (S) [Mass/Vol] 6.3 g/dL Normal [facility] Comment on above: Performed By: #### T SH, CMP, LIPID ####[facility] Hpgiyvdadm7916 [place] [address]Dr. Nanomarcial Rocha Glucose [Mass/Vol] 118 mg/dL Critically high 74-106 [facility] Comment on above: Performed By: #### T SH, CMP, LIPID ####[facility] Ayqiswthpj1282 [place] [address]Dr. Ricardo Rocha Potassium [Moles/Vol] 5.5 mmol/L Critically high 3.5-5.1 [facility] Comment on above: Performed By: #### T SH, CMP, LIPID ####[facility] Pwtvryixbd[address] [place], [place] [address]Dr. Nanomarcial Rocha Protein [Mass/Vol] 9.6 g/dL Critically high 6.4-8.2 [facility] Comment on above: Performed By: #### T SH, CMP, LIPID ####[facility] Zewvfkvtka[address] [place], [place] [address]Dr. Ricardo Rocha Sodium [Moles/Vol] 131 mmol/L Critically low 136-145 [facility] Comment on above: Performed By: #### T SH, CMP, LIPID ####[facility] Sicetpmkgx6896 [place] [address]Dr. Ricardo Rocha Urea nitrogen [Mass/Vol] 45.0 mg/dL Critically high 7.0-18.0 [facility] Comment on above: Performed By: #### T SH, CMP, LIPID ####[facility] Ptkwpqgqhp1929 [place] [address]Dr. Ricardo Rocha Urea nitrogen/Creatinine [Mass ratio] 22.4 mg/mg Normal [facility] Comment on above: Performed By: #### T SH, CMP, LIPID ####[facility] Lhldnbzgzz8977 [place] [address]Dr. Ricardo Rocha TSHon 07-06-2022 TSH 1.178 uIU/mL Normal 0.358-3.740 [facility] Comment on above: Performed By: #### T SH, CMP, LIPID ####[facility] Mzzrtunmkx7[address] [place], [place] [address]Dr. Ricardo Rocha UA RANDOM W/MICROSCOPICon BACTERIA NONE SEEN Normal NONE SEEN [facility] Comment on above: Performed By: #### U AMIC ####[facility] Llgdjtsnop[address] [place], [place] [address]Dr. Ricardo Rocha Bilirubin Ql (U) Negative Normal NEGATIVE [facility] Comment on above: Performed By: #### U AMIC ####[facility] Wggnbabyaq348[address] [place], [place] [address]Dr. Ricardo Rocha CAST NONE SEEN Normal NONE SEEN [facility] Comment on above: Performed By: #### U AMIC ####[facility] Yhtgszmlzq[address] [place], [place] [address]Dr. Ricardo Rocha Clarity (U) CLEAR Normal CLEAR [facility] Comment on above: Performed By: #### U AMIC ####[facility] Qzgwdqybdx304[address] [place], [place] [address]Dr. Ricardo Rocha Color (U) LT. YELLOW Normal YELLOW [facility] Comment on above: Performed By: #### U AMIC ####[facility] Ugaejtlhim4309 [place] [address]Dr. Ricardo Rocha Crystals LM Nom (Urine sed) NONE SEEN Normal NONE SEEN [facility] Comment on above: Performed By: #### U AMIC ####[facility] Mulaafrsmk4246 [place] [address]Dr. Yilan Rocha Epithelial cells LM Ql (Urine sed) NONE SEEN Normal NONE SEEN /RARE [facility] Comment on above: Performed By: #### U AMIC ####[facility] Jppfohqouu6200 [place] [address]Dr. Nanolan Rocha Glucose Ql (U) Negative Normal NEGATIVE [facility] Comment on above: Performed By: #### U AMIC ####[facility] Ymcjqtpuux64[address] [place], [place] [address]Dr. Nanolan Rocha Hemoglobin Ql (U) Negative Normal NEGATIVE [facility] Comment on above: Performed By: #### U AMIC ####[facility] Pbsdsnmunv75[address] [place], [place] [address]Dr. Yimarcial Rocha Ketones Ql (U) Negative Normal NEGATIVE [facility] Comment on above: Performed By: #### U AMIC ####[facility] Gaeddcjnpz020[address] [place], [place] [address]Dr. Yilan Rocha LEUKOCYTES Negative Normal NEGATIVE [facility] Comment on above: Performed By: #### U AMIC ####[facility] Sqbiafyvry033[address] [place], [place] [address]Dr. Yilan Rocha MUCOUS NONE SEEN Normal NONE SEEN [facility] Comment on above: Performed By: #### U AMIC ####[facility] Qzpgakonmb4902 [place] [address]Dr. Nanolan Rocha Nitrite Ql (U) Negative Normal NEGATIVE [facility] Comment on above: Performed By: #### U AMIC ####[facility] Kvfeapmsop1920 [place] [address]Dr. Ricardo Rocha pH (U) 5.5 [pH] Normal 5-[address] [facility] Comment on above: Performed By: #### U AMIC ####[facility] Zaztcarxfb0138 [place] [address]Dr. Ricardo Rocha RBC NONE SEEN Abnormal 0-[address] [facility] Comment on above: Performed By: #### U AMIC ####[facility] Ttipvmzlsi6994 [place] [address]Dr. Ricardo Rocha SPEC GRAVITY 1.020 Normal 1.005-<=1.[address] [facility] Comment on above: Performed By: #### U AMIC ####[facility] Fxtuwjjezu[address] [place], [place] [address]Dr. Nanomarcial Rocha UA PROTEIN Negative Normal NEGATIVE/ TRACE [facility] Comment on above: Performed By: #### U AMIC ####[facility] Uswsfidgwb15[address] [place], [place] [address]Dr. Ricardo Aj Urobilinogen Qn (U) 0.2 {Madeleine'U}/dL Normal 0.2 - 1. [address] [facility] Comment on above: Performed By: #### U AMIC ####[facility] Rxujlofhjv419[address] [place], [place] [address]Dr. Ricardo Aj WBC NONE SEEN Normal NONE SEEN [facility] Comment on above: Performed By: #### U AMIC ####[facility] Ealxextdya154[address] [place], [place] [address]Dr. Ricardo Rocha CBC W MANUAL DIFFon 06-16-20 22 ATYPICAL LYMPH # Normal [facility] Comment on above: Performed By: #### C BCMAN ####[facility] Nekhjmadwa66[address] [place], [place] [address]Dr. Nanomarcial Rocha ATYPICAL LYMPH % Normal [facility] Comment on above: Performed By: #### C BCMAN ####[facility] Pzvxckcigz[address] [place], [place] [address]Dr. Ricardo Rocha BAND # 0.2 103/ul Normal 0.0-0.[address] [facility] Comment on above: Performed By: #### C BCMAN ####[facility] Xihblrkcht[address] [place], [place] [address]Dr. Ricardo Rocha BAND % 2 % Normal 0-[address] [facility] Comment on above: Performed By: #### C BCRED ####[facility] Kglcjpahsj2007 [place], [place] [address]Bl. Ricardo Rocha BASOM # 0.00 103/ul Normal 0.00-0.[address] [facility] Comment on above: Performed By: #### C BCMAN ####[facility] Fenujezcgm4772 [place] [phone]. Ricardo Rocha BASOM % 0.0 % Critically low 0.2-2.0 [facility] Comment on above: Performed By: #### C BCMAN ####[facility] Dglvaahlbd6702 [place] [phone]. Ricardo Rocha BLAST # Normal [facility] Comment on above: Performed By: #### C BCRED ####[facility] Qgpygexrdi0740 [place] [address]Dr. Ricardo Rocha BLAST % Normal [facility] Comment on above: Performed By: #### C BCRED ####[facility] Ruehbljhfa7040 [place] [address]Dr. Ricardo Rocha CORRECTED WBC Normal 4.0-11.0 [facility] Comment on above: Performed By: #### C BCRED ####[facility] Vsbfptygxq4870 [place] [address]Dr. Ricardo Rocha EOS # 0.11 103/ul Normal 0.00-0.[address] [facility] Comment on above: Performed By: #### C BCRED ####[facility] Lboyqttypg6821 [place] [address]Dr. Ricardo Rocha EOS% 1.0 % Normal 0.9-7.[address] [facility] Comment on above: Performed By: #### C BCRED ####[facility] Ddewyzxhoi0084 [place] [phone]. Ricardo Rocha HCT 24.2 % Critically low 36.0-48.0 [facility] Comment on above: Performed By: #### C BCRED ####[facility] Tcdquhnmyu6941 [place] [phone]. Ricardo Rocha HGB 7.9 g/dl Critically low 12.0-16.0 [facility] Comment on above: Performed By: #### C DWAINE ####[facility] Lixrlznvqg9218 [place] [phone]. Ricardo Rocha LYMPHM # 1.81 103/ul Normal 1.20-3.80 [facility] Comment on above: Performed By: #### C DWAINE ####[facility] Hxjdpbnhgu5980 [place] [phone]. Ricardo Rocha LYMPHM% 16.0 % Critically low 20.5-60.0 [facility] Comment on above: Performed By: #### C DWAINE ####[facility] Gpjmrxzjia2503 [place] [phone]. Ricardo Rocha MCH 25.2 pg Critically low 26.7-34.0 [facility] Comment on above: Performed By: #### C DWAINE ####[facility] Kmhlelaemc3437 [place] [phone]. Ricardo Rocha MCHC 32.6 g/dl Normal 29.9-35.2 [facility] Comment on above: Performed By: #### C DWAINE ####[facility] Tufbooytbm6960 [place] [phone]. Ricardo Rocha MCV 77.3 fL Critically low 81.0-99.0 [facility] Comment on above: Performed By: #### C DWAINE ####[facility] Cnzrwhqqjz3228 [place] [phone]. Ricardo Rocha METAMYELOCYTE # 0.5 103/ul Normal [facility] Comment on above: Performed By: #### C DWAINE ####[facility] Jgcmcuqhqt0882 [place] [phone]. Ricardo Rocha METAMYELOCYTE % 4 % Normal [facility] Comment on above: Performed By: #### C DWAINE ####[facility] Ebbinxcurs2889 [place] [phone]. Ricardo Rocha MONOM# 0.45 103/ul Normal 0.30-0.[address] [facility] Comment on above: Performed By: #### C DWAINE ####[facility] Waumxqlgdb8944 [place], [place] [address]Id. Ricardo Rocha MONOM% 4.0 % Normal 1.7-12.[address] [facility] Comment on above: Performed By: #### C DWAINE ####[facility] Vzxtusgqxl6360 [place], [place] [address]Cs. Ricardo Rocha MPV 10.4 fL Normal 9.5-13.[address] [facility] Comment on above: Performed By: #### C DWAINE ####[facility] Hukcwebyky4207 [place] [phone]. Ricardo Rocha MYELOCYTE # 0.5 103/ul Normal [facility] Comment on above: Performed By: #### C DWAINE ####[facility] Ltshzhtpyy1707 [place] [phone]. Ricardo Rocha MYELOCYTE % 4 % Normal [facility] Comment on above: Performed By: #### C DWAINE ####[facility] Yjusyhtmyf3187 [place] [phone]. Ricardo Rocha NRBC Normal [facility] Comment on above: Performed By: #### C DWAINE ####[facility] Lkmcbuudrd0533 [place] [phone]. Ricardo Rocha PLT 325 103/ul Normal 150-[address] [facility] Comment on above: Performed By: #### C DWAINE ####[facility] Lrylxebgcl9121 [place] [phone]. Ricardo Rocha RBC 3.13 106/ul Critically low 4.20-5.40 [facility] Comment on above: Performed By: #### C DWAINE ####[facility] Zpvygafxfc7335 [place] [phone]. Ricardo Rocha RDW 13.7 % Normal 11.0-15.[address] [facility] Comment on above: Performed By: #### C DWAINE ####[facility] Lrivxhdlfu5765 [place] [phone]. Nanomarcial Rocha SEG # 7.80 103/ul Critically high 1.40-6.50 [facility] Comment on above: Performed By: #### C BCMAN ####[facility] Hmezarnpuc2635 [place] [address]Dr. Ricardo Rocha SEG % 69.0 % Normal 43.0-75.0 [facility] Comment on above: Performed By: #### C BCMAN ####[facility] Bskkyyqavn9225 [place] [phone]. Ricardo Rocha WBC 11.3 103/ul Critically high 4.0-11.0 [facility] Comment on above: Performed By: #### C BCMAN ####[facility] Oqvhyuhfkn0262 [place] [address]Dr. Ricardo Rocha PROF 14(COMP METB)on 022 Albumin [Mass/Vol] 1.7 g/dL Critically low 3.4-5.[address] [facility] Comment on above: Performed By: #### C MP ####[facility] [address]yeaiomj[address] [place], [place] [address]Dr. Ricardo Rocha Albumin/Globulin [Mass ratio] 0.4 {ratio} Normal [facility] Comment on above: Performed By: #### C MP ####[facility] Qvrktdfylr847[address] [place], [place] [address]Dr. Ricardo Rocha ALP [Catalytic activity/Vol] 174 U/L Critically high 46-116 [facility] Comment on above: Performed By: #### C MP ####[facility] Yakwupsdcc023[address] [place], [place] [address]Dr. Ricardo Rocha ALT [Catalytic activity/Vol] 14 U/L Normal 14-59 [facility] Comment on above: Performed By: #### C MP ####[facility] Wxttpsmbsk90[address] [place], [place] [address]Dr. Ricardo Rocha Anion gap [Moles/Vol] 10.8 mmol/L Normal [facility] Comment on above: Performed By: #### C MP ####[facility] Gaqkeefxpl[address] [place] [address]Dr. Ricardo Rocha AST [Catalytic activity/Vol] 13 U/L Critically low 15-37 [facility] Comment on above: Performed By: #### C MP ####[facility] Soskfmhqqq3517 [place] [id number]. Ricardo Rocha Bilirubin [Mass/Vol] 0.3 mg/dL Normal 0.2-1.0 [facility] Comment on above: Performed By: #### C MP ####[facility] Agbllrlxxm4850 [place] [id number]. Ricardo Rocha Calcium [Mass/Vol] 8.2 mg/dL Critically low 8.5-10.1 [facility] Comment on above: Performed By: #### C MP ####[facility] Hlmnbyeynp7293 [place] [address]Dr. Ricardo Rocha Chloride [Moles/Vol] 104 mmol/L Normal 98-107 [facility] Comment on above: Performed By: #### C MP ####[facility] Ovkaqsqftk47[address] [place], [place] [address]Dr. Ricardo Rocha CO2 [Moles/Vol] 22.4 mmol/L Normal 21.0-32.0 [facility] Comment on above: Performed By: #### C MP ####[facility] Zntkvwwqvb804366 [address] [place], [place] [address]Dr. Ricardo Rocha Creatinine [Mass/Vol] 1.29 mg/dL Critically high 0.55-1.02 [facility] Comment on above: Performed By: #### C MP ####[facility] Wbwznruawo578[address] [place], [place] [address]Dr. Ricardo Rocha EGFR-AF ANDORRAN 50 mL/min/1.73m2 Critically low >=[address] [facility] Comment on above: Performed By: #### C MP ####[facility] Yspvjrolno9866 [place] [address]Dr. Ricardo Aj EGFR-NON AF ANDORRAN 42 mL/min/1.73m2 Critically low >=60 [facility] Comment on above: Performed By: #### C MP ####[facility] Dgceqoawzc636[address] [place], [place] [address]Dr. Ricardo Aj Globulin (S) [Mass/Vol] 4.8 g/dL Normal [facility] Comment on above: Performed By: #### C MP ####[facility] Hydcfyaosl8167 [place] [id number]. Ricardo Rocha Glucose [Mass/Vol] 262 mg/dL Critically high 74-106 [facility] Comment on above: Performed By: #### C MP ####[facility] Zagzassmon3366 [place] [id number]. iRcardo Rocha Potassium [Moles/Vol] 3.2 mmol/L Critically low 3.5-5.1 [facility] Comment on above: Performed By: #### C MP ####[facility] Phbvkyjczl3071 [place] [address]Dr. Ricardo Rocha Protein [Mass/Vol] 6.5 g/dL Normal 6.4-8.2 [facility] Comment on above: Performed By: #### C MP ####[facility] Mwzdjetgjd5615[address] [place], [place] [address]Dr. Ricardo Rocha Sodium [Moles/Vol] 134 mmol/L Critically low 136-145 [facility] Comment on above: Performed By: #### C MP ####[facility] Yxggghakoj4622[address] [place], [place] [address]Dr. Ricardo Aj Urea nitrogen [Mass/Vol] 20.0 mg/dL Critically high 7.0-18.0 [facility] Comment on above: Performed By: #### C MP ####[facility] Vkbgrnhqpz17[address] [place], [place] [address]Dr. Ricardo Rocha Urea nitrogen/Creatinine [Mass ratio] 15.5 mg/mg Normal [facility] Comment on above: Performed By: #### C MP ####[facility] Ppnbcnhylc7187 [place] [phone]. Ricardo Aj CBC AUTO DIFFon 06-15-2022 BASO # 0.1 103/ul Normal 0.0-0.1 [facility] Comment on above: Performed By: #### C BC ####[facility] Ozcogxdkmv9899 [place] [id number]. Nanomarcial Rocha Basophils/100 WBC (Bld) 0.7 % Normal 0.2-2.0 [facility] Comment on above: Performed By: #### C BC ####[facility] Dzginvthbe3738 [place] [address]Dr. Ricardo Rocha EO # 0.1 103/ul Normal 0.0-0.7 [facility] Comment on above: Performed By: #### C BC ####[facility] Equphyztql3877 [place] [address]Dr. Ricardo Aj Eosinophils/100 WBC (Bld) 0.7 % Critically low 0.9-7.0 [facility] Comment on above: Performed By: #### C BC ####[facility] Lyxrsqxvfv7523 [place] [address]Dr. Nanomarcial Rocha Erythrocyte distribution width (RBC) [Ratio] 13.7 % Normal 11.0-15.0 [facility] Comment on above: Performed By: #### C BC ####[facility] Bxhpgdtdat7[address] [place], [place] [address]Dr. Ricardo Rocha Hematocrit (Bld) [Volume fraction] 26.7 % Critically low 36.0-48.0 [facility] Comment on above: Performed By: #### C BC ####[facility] Cxiexzndlc7926[address] [place], [place] [address]Dr. Ricardo Rocha Hemoglobin (Bld) [Mass/Vol] 8.4 g/dL Critically low 12.0-16.[address] [facility] Comment on above: Performed By: #### C BC ####[facility] Vcoxjcuqyu6355[address] [place], [place] [address]Dr. Nanomarcial Rocha IG # 0.83 10e3/ul Critically high 0.00-0.03 [facility] Comment on above: Performed By: #### C BC ####[facility] Kkhzjteuxc709[address] [place], [place] [address]Dr. Ricardo Rocha IG % 6.2 % Critically high 0.0-0.5 [facility] Comment on above: Performed By: #### C BC ####[facility] Coygryeijd7457[address] [place], [place] [address]DrIrina Rocha LYMPH # 1.3 103/ul Normal 1.2-3.[address] [facility] Comment on above: Performed By: #### C BC ####[facility] Jejjflozxq6686 [place] [address]Dr. Ricardo Rocha Lymphocytes/100 WBC (Bld) 9.6 % Critically low 20.5-60.0 [facility] Comment on above: Performed By: #### C BC ####[facility] Nsbwoainiw9265 [place] [address]DrIrina Rocha MANUAL DIFF REQ NO Normal [facility] Comment on above: Performed By: #### C BC ####[facility] Aejffbfsww8590 [place] [address]Dr. Ricardo Rocha MCH (RBC) [Entitic mass] 25.1 pg Critically low 26.7-34.[address] [facility] Comment on above: Performed By: #### C BC ####[facility] Amrjwqmnid6[address] [place], [place] [address]Dr. Ricardo Rocha MCHC (RBC) [Mass/Vol] 31.5 g/dL Normal 29.9-35.[address] [facility] Comment on above: Performed By: #### C BC ####[facility] Anyjwpspen8158[address] [place], [place] [address]DrIrina Rocha MCV (RBC) [Entitic vol] 79.7 fL Critically low 81.0-99.[address] [facility] Comment on above: Performed By: #### C BC ####[facility] Mpnvxsabyp718[address] [place], [place] [address]Dr. Ricardo Rocha MONO # 1.0 103/ul Critically high 0.3-0.8 [facility] Comment on above: Performed By: #### C BC ####[facility] Bpwvdxqmdq3284[address] [place], [place] [address]DrIrina Rocha Monocytes/100 WBC (Bld) 7.3 % Normal 1.7-12.[address] [facility] Comment on above: Performed By: #### C BC ####[facility] Dozdeskvir1997[address] [place], [place] [address]Dr. Ricardo Rocha NEUT # 10.2 103/ul Critically high 1.4-6.5 [facility] Comment on above: Performed By: #### C BC ####[facility] Uinsnttpsp2396 [place] [address]Dr. Ricardo Rocha Neutrophils/100 WBC (Bld) 75.5 % Critically high 43.0-75.0 [facility] Comment on above: Performed By: #### C BC ####[facility] Piioucfoyj5060[address] [place], [place] [address]Dr. Ricardo Rocha Platelet mean volume (Bld) [Entitic vol] 11.8 fL Normal 9.5-13.[address] [facility] Comment on above: Performed By: #### C BC ####[facility] Ylqncedbbt20[address] [place], [place] [address]Dr. Nanomarcial Aj PLT 208 103/ul Normal 150-[address] [facility] Comment on above: Performed By: #### C BC ####[facility] Gdhgtamzhm98[address] [place], [place] [address]Dr. Nanomarcial Aj RBC 3.35 106/ul Critically low 4.20-5.40 [facility] Comment on above: Performed By: #### C BC ####[facility] Pnptphfukz967[address] [place], [place] [address]Dr. Nanomarcial Aj WBC 13.5 103/ul Critically high 4.0-11.0 [facility] Comment on above: Performed By: #### C BC ####[facility] Iyfgsztteo18[address] [place], [place] [address]Dr. Ricardo Rocha CULTURE BLOODon 06-15-2022 Microscopic examination of blood, culture Culture Observations: NO GROWTH AT [address] [facility] Comment on above: Performed By: #### B LDCX2 ####[facility] Nlxwnaaqev9[address] [place], [place] [address]Dr. Ricardo Rocha Microscopic examination of blood, culture Culture Observations: NO GROWTH AT 5 DAYS Normal [facility] Comment on above: Performed By: #### B LDCX1 ####[facility] Mfgvpisyjq2548[address] [place], [place] [address]Dr. Ricardo Rocha Covid-19 PCR (CVDTBH)on 05-22 SARS-CoV-2 (COVID-19) RNA ADRILE+probe Ql (Unsp spec) Not detected Normal NOT DETECTED [facility] Comment on above: Result Comment: When [...] for this test is supported by the [employer] of [employer] and Human Service's declaration that [...] be used). Performed By: #### C VDTBH ####[facility] Xrxsbfxcwy7204 [place] [address]Dr. Ricardo Rocha POINT OF CARE GLUCOSEon 05-22 Glucose [Mass/Vol] 366 mg/dL Critically high -106 [facility] Comment on above: Performed By: #### P OCGLUC ####[facility] Mgxumjkcmu2269 [place] [address]Dr. Ricardo [facility] Glucose [Mass/Vol] 229 mg/dL Critically high -106 [facility] Comment on above: Performed By: #### P OCGLUC ####[facility] Drwgbmglim9355 [place] [address]Dr. Nanomarcial [facility] Glucose [Mass/Vol] 258 mg/dL Critically high [facility]106 [facility] Comment on above: Performed By: #### P OCGLUC ####[facility] Zrojhgrqyt5915 [place] [address]Dr. Ricardo Rocha PROF 14(COMP METB)on 022 Albumin [Mass/Vol] 1.8 g/dL Critically low 3.4-5.0 [facility] Comment on above: Performed By: #### C MP ####[facility] Npdfgvbxrh2915 [place] [address]Dr. Ricardo Rocha Albumin/Globulin [Mass ratio] 0.4 {ratio} Normal [facility] Comment on above: Performed By: #### C MP ####[facility] Clzksjfazv0931 [place] [address]Dr. Nanomarcial Aj ALP [Catalytic activity/Vol] 196 U/L Critically high 46-116 [facility] Comment on above: Performed By: #### C MP ####[facility] Ealttgfkaz56[address] [place], [place] [address]Dr. Ricardo Rocha ALT [Catalytic activity/Vol] 18 U/L Normal 14-59 [facility] Comment on above: Performed By: #### C MP ####[facility] Nldcjrvsip[address] [place], [place] [address]Dr. Ricardo Rocha Anion gap [Moles/Vol] 16.3 mmol/L Normal [facility] Comment on above: Performed By: #### C MP ####[facility] Cvrvdwzrnf22[address] [place], [place] [address]Dr. Nanomarcial Rocha AST [Catalytic activity/Vol] 22 U/L Normal 15-37 [facility] Comment on above: Performed By: #### C MP ####[facility] Iemahhambf3940[address] [place], [place] [address]Dr. Ricardo Rocha Bilirubin [Mass/Vol] 0.4 mg/dL Normal 0.2-1.0 [facility] Comment on above: Performed By: #### C MP ####[facility] Jslqxidmab8664[address] [place], [place] [address]Dr. Ricardo Rocha Calcium [Mass/Vol] 8.2 mg/dL Critically low 8.5-10.1 [facility] Comment on above: Performed By: #### C MP ####[facility] Dflglklqtv057[address] [place], [place] [address]Dr. Ricardo Rocha Chloride [Moles/Vol] 103 mmol/L Normal 98-107 [facility] Comment on above: Performed By: #### C MP ####[facility] Zvpzchvnfm6486 [place] [id number]. Ricardo Rocha CO2 [Moles/Vol] 19.0 mmol/L Critically low 21.0-32.0 [facility] Comment on above: Performed By: #### C MP ####[facility] Uonslztdbu1710 [place] [phone]. Ricardo Rocha Creatinine [Mass/Vol] 1.32 mg/dL Critically high 0.55-1.02 [facility] Comment on above: Performed By: #### C MP ####[facility] Xzjqptkgqt7038 [place] [address]Dr. Ricardo Rocha EGFR-AF ANDORRAN 49 mL/min/1.73m2 Critically low >=60 [facility] Comment on above: Performed By: #### C MP ####[facility] Beznesbmjr1635 [place] [address]Dr. Ricardo Rocha EGFR-NON AF ANDORRAN 41 mL/min/1.73m2 Critically low >=60 [facility] Comment on above: Performed By: #### C MP ####[facility] Lbfjmznupc2589 [place] [address]Dr. Ricardo Rocha Globulin (S) [Mass/Vol] 5.0 g/dL Normal [facility] Comment on above: Performed By: #### C MP ####[facility] Qqewwyycir6588 [place] [address]Dr. Ricardo Rocha Glucose [Mass/Vol] 228 mg/dL Critically high 74-106 [facility] Comment on above: Performed By: #### C MP ####[facility] Yspjwgmjih7700 [place] [phone]. Ricardo Rocha Potassium [Moles/Vol] 3.3 mmol/L Critically low 3.5-5.[address] [facility] Comment on above: Performed By: #### C MP ####[facility] Ozgwhdamav9334 [place] [phone]. Ricardo Aj Protein [Mass/Vol] 6.8 g/dL Normal 6.4-8.2 [facility] Comment on above: Performed By: #### C MP ####[facility] Etbcdkeasc6075[address] [place], [place] [address]Dr. Ricardo Rocha Sodium [Moles/Vol] 135 mmol/L Critically low 136-145 [facility] Comment on above: Performed By: #### C MP ####[facility] Sqodzwrfta306[address] [place], [place] [address]Dr. Ricardo Rocha Urea nitrogen [Mass/Vol] 23.0 mg/dL Critically high 7.0-18.0 [facility] Comment on above: Performed By: #### C MP ####[facility] Mzpgjinaas7304[address] [place], [place] [address]Dr. Ricardo Rocha Urea nitrogen/Creatinine [Mass ratio] 17.4 mg/mg Normal [facility] Comment on above: Performed By: #### C MP ####[facility] Npifmrhsdm253[address] [place], [place] [address]Dr. Ricardo Rocha UA (CLEAN/CATCH) SKI PATROL DIRECTOR/MICRO I F IND.on 06-15-2022 Bilirubin Ql (U) Negative Normal NEGATIVE [facility] Comment on above: Performed By: #### U MICRO, UACSIND ####[facility] Cdtmzekgte550[address] [place], [place] [address]Dr. Ricardo Rocha Clarity (U) CLEAR Normal CLEAR [facility] Comment on above: Performed By: #### U MICRO, UACSIND ####[facility] Ugijynzfto507[address] [place], [place] [address]Dr. Ricardo Rocha Color (U) LT. YELLOW Normal YELLOW [facility] Comment on above: Performed By: #### U MICRO, UACSIND ####[facility] Apopvhrldq2332[address] [place], [place] [address]Dr. Ricardo Rocha Glucose Ql (U) 250 mg/dl Abnormal NEGATIVE [facility] Comment on above: Performed By: #### U MICRO, UACSIND ####[facility] Ernqpjycmp37[address] [place], [place] [address]Dr. Ricardo Rocha Hemoglobin Ql (U) TRACE-LYSED Abnormal NEGATIVE [facility] Comment on above: Performed By: #### U MICRO, UACSIND ####[facility] Ayymjbletw3119 [place] [address]Dr. Nanomarcial Rocha Ketones Ql (U) 15 mg/dl Abnormal NEGATIVE [facility] Comment on above: Performed By: #### U MICRO, UACSIND ####[facility] Wzxldollwr1643 [place] [address]Dr. Ricardo Rocha LEUKOCYTES Negative Normal NEGATIVE [facility] Comment on above: Performed By: #### U MICRO, UACSIND ####[facility] Nggjxsnmjm5424 [place] [address]Dr. Nanomarcial Rocha Nitrite Ql (U) Negative Normal NEGATIVE [facility] Comment on above: Performed By: #### U MICRO, UACSIND ####[facility] Ryycdtkcpe5317 [place] [address]Dr. Ricardo Rocha pH (U) 6.0 [pH] Normal 5-[address] [facility] Comment on above: Performed By: #### U MICRO, UACSIND ####[facility] Hhbeiqzgxh4[address] [place], [place] [address]Dr. Ricardo Rocha SPEC GRAVITY 1.010 Normal 1.005-<=1.[address] [facility] Comment on above: Performed By: #### U MICRO, UACSIND ####[facility] Lxtwxtgziw925[address] [place], [place] [address]Dr. Ricardo Rocha UA PROTEIN Negative Normal NEGATIVE/ TRACE [facility] Comment on above: Performed By: #### U MICRO, UACSIND ####[facility] Djytlzxzce6658 [place] [address]Dr. Ricardo Rocha UR MICRO IND INDICATED Normal [facility] Comment on above: Performed By: #### U MICRO, UACSIND ####[facility] Togzoshale75[address] [place], [place] [address]Dr. Ricardo Rocha Urobilinogen Qn (U) 0.2 {Madeleine'U}/dL Normal 0.2 - 1. [address] [facility] Comment on above: Performed By: #### U MICRO, UACSIND ####[facility] Gnqaynuqyo0740 [place] [address]Dr. Ricardo Rocha URINE MICROSCOPIC ONLYon BACTERIA NONE SEEN Normal NONE SEEN [facility] Comment on above: Performed By: #### U MICRO, UACSIND ####[facility] Wmlsrrmvno1626 [place] [address]Dr. Ricardo Rocha Bacteria identified Cx Nom (U) NOT INDICATED Normal [facility] Comment on above: Performed By: #### U MICRO, UACSIND ####[facility] Mxwzzflgyg1980 [place] [address]Dr. Ricardo Rocha CAST NONE SEEN Normal NONE SEEN [facility] Comment on above: Performed By: #### U MICRO, UACSIND ####[facility] Bjzuxcjrda1725 [place] [address]Dr. Ricardo Rocha Crystals LM Nom (Urine sed) NONE SEEN Normal NONE SEEN [facility] Comment on above: Performed By: #### U MICRO, UACSIND ####[facility] Jkcnpfluue8606 [place] [address]Dr. Ricardo Rocha Epithelial cells LM Ql (Urine sed) FEW Abnormal NONE SEEN /RARE [facility] Comment on above: Performed By: #### U MICRO, UACSIND ####[facility] Uqhykylnus0756 [place] [address]Dr. Ricardo Rocha MUCOUS NONE SEEN Normal NONE SEEN [facility] Comment on above: Performed By: #### U MICRO, UACSIND ####[facility] Hntuqjcgbo264[address] [place], [place] [address]Dr. Ricardo Rocha RBC 2-5 Abnormal 0-[address] [facility] Comment on above: Performed By: #### U MICRO, UACSIND ####[facility] Ieynblmzcs7600 [place] [address]Dr. Ricardo Rocha WBC 2-5 Abnormal NONE SEEN [facility] Comment on above: Performed By: #### U MICRO, UACSIND ####[facility] Avscyvwhng4[address] [place], [place] [address]Dr. Ricardo Rocha YEAST PRESENT Abnormal NONE SEEN [facility] Comment on above: Performed By: #### U MICRO, UACSIND ####[facility] Fnbtjrenqu4597 [place] [phone]. Ricardo Rocha CBC AUTO DIFFon 06-14-2022 BASO # 0.0 103/ul Normal 0.0-0.1 [facility] Comment on above: Performed By: #### C BC ####[facility] Rzpameqpnn6276 [place] [address]Dr. Ricardo Aj Basophils/100 WBC (Bld) 0.4 % Normal 0.2-2.[address] [facility] Comment on above: Performed By: #### C BC ####[facility] Gtddjuvfxe97[address] [place], [place] [address]Dr. Ricardo Rocha EO # 0.0 103/ul Normal 0.0-0.[address] [facility] Comment on above: Performed By: #### C BC ####[facility] Eeoexbvxvs415[address] [place], [place] [address]Dr. Nanomarcial Rocha Eosinophils/100 WBC (Bld) 0.4 % Critically low 0.9-7.0 [facility] Comment on above: Performed By: #### C BC ####[facility] Wrgzumymrg4932[address] [place], [place] [address]Dr. Ricardo Rocha Erythrocyte distribution width (RBC) [Ratio] 13.8 % Normal 11.0-15.0 [facility] Comment on above: Performed By: #### C BC ####[facility] Qrhrwpnjpk13[address] [place], [place] [address]Dr. Ricardo Rocha Hematocrit (Bld) [Volume fraction] 26.2 % Critically low 36.0-48.[address] [facility] Comment on above: Performed By: #### C BC ####[facility] Ujbhjraqwk444[address] [place], [place] [address]Dr. Ricardo Rocha Hemoglobin (Bld) [Mass/Vol] 8.3 g/dL Critically low 12.0-16.0 [facility] Comment on above: Performed By: #### C BC ####[facility] Rmqomyhevr96[address] [place], [place] [address]Dr. Ricardo Rocha IG # 0.24 10e3/ul Critically high 0.00-0.03 [facility] Comment on above: Performed By: #### C BC ####[facility] Azmvjdfeay7983 [place] [address]Dr. Nanomarcial Aj IG % 2.3 % Critically high 0.0-0.5 [facility] Comment on above: Performed By: #### C BC ####[facility] Ouszppmyem5873 [place] [address]DrIrina Rocha LYMPH # 1.1 103/ul Critically low 1.2-3.8 [facility] Comment on above: Performed By: #### C BC ####[facility] Sofjqdevns9527 [place] [address]Dr. Ricardo Rocha Lymphocytes/100 WBC (Bld) 10.2 % Critically low 20.5-60.0 [facility] Comment on above: Performed By: #### C BC ####[facility] Hupgqwerrv99[address] [place], [place] [address]Dr. Ricardo Rocha MANUAL DIFF REQ NO Normal [facility] Comment on above: Performed By: #### C BC ####[facility] Jcfdlooivv7[address] [place], [place] [address]DrIrina Rocha MCH (RBC) [Entitic mass] 25.5 pg Critically low 26.7-34.0 [facility] Comment on above: Performed By: #### C BC ####[facility] Oyfrmdkixw5618[address] [place], [place] [address]Dr. Ricardo Rocha MCHC (RBC) [Mass/Vol] 31.7 g/dL Normal 29.9-35.[address] [facility] Comment on above: Performed By: #### C BC ####[facility] Tltpdeyuxq187[address] [place], [place] [address]DrIrina Rocha MCV (RBC) [Entitic vol] 80.6 fL Critically low 81.0-99.0 [facility] Comment on above: Performed By: #### C BC ####[facility] Sqnlyzjexc60[address] [place], [place] [address]DrIrina Rocha MONO # 0.7 103/ul Normal 0.3-0.[address] [facility] Comment on above: Performed By: #### C BC ####[facility] Idoaknuncy5770 [place] [address]Dr. Ricardo Rocha Monocytes/100 WBC (Bld) 6.7 % Normal 1.7-12.[address] [facility] Comment on above: Performed By: #### C BC ####[facility] Abegttvjri1822 [place] [address]Dr. Ricardo Rocha NEUT # 8.5 103/ul Critically high 1.4-6.5 [facility] Comment on above: Performed By: #### C BC ####[facility] Hrgrlooagp0296 [place] [address]Dr. Ricardo Rocha Neutrophils/100 WBC (Bld) 80.0 % Critically high 43.0-75.[address] [facility] Comment on above: Performed By: #### C BC ####[facility] Kotadnlcmj56[address] [place], [place] [address]Dr. Ricardo Rocha Platelet mean volume (Bld) [Entitic vol] 12.1 fL Normal 9.5-13.[address] [facility] Comment on above: Performed By: #### C BC ####[facility] Bpyldlhjfn[address] [place], [place] [address]Dr. Ricardo Rocha PLT 173 103/ul Normal 150-[address] [facility] Comment on above: Performed By: #### C BC ####[facility] Sqcsinxdje8424 [place] [address]Dr. Ricardo Rocha RBC 3.25 106/ul Critically low 4.20-5.40 [facility] Comment on above: Performed By: #### C BC ####[facility] Kgzibukcni8875[address] [place], [place] [address]Dr. Ricardo Rocha WBC 10.6 103/ul Normal 4.0-11.[address] [facility] Comment on above: Performed By: #### C BC ####[facility] Xzgpxdohey32[address] [place], [place] [address]DrIrina Ricardo Rocha POINT OF CARE GLUCOSEon 05-22 Glucose [Mass/Vol] 237 mg/dL Critically high 74-106 [facility] Comment on above: Performed By: #### P OCGLUC ####[facility] [address]msaxuyton[address] [place] [address]Dr. Nanomarcial Rocha Glucose [Mass/Vol] 296 mg/dL Critically high -106 [facility] Comment on above: Performed By: #### P OCGLUC ####[facility] Jhrzxvkcdu50[address] [place] [address]Dr. Ricardo Rocha Glucose [Mass/Vol] 406 mg/dL Critically high -106 [facility] Comment on above: Performed By: #### P OCGLUC ####[facility] Codhtucdts[address] [place], [place] [address]Dr. Ricardo Rocha Glucose [Mass/Vol] 447 mg/dL Critically high -106 [facility] Comment on above: Performed By: #### P OCGLUC ####[facility] Gltjpkjzug7[address] [place], [place] [address]Dr. Ricardo Rocha Glucose [Mass/Vol] 319 mg/dL Critically high -106 [facility] Comment on above: Performed By: #### P OCGLUC ####[facility] Wlpbsbxerk[address] [place], [place] [address]Dr. Ricardo Rocha PROF 14(COMP METB)on 022 Albumin [Mass/Vol] 1.6 g/dL Critically low 3.4-5.0 [facility] Comment on above: Performed By: #### C MP ####[facility] Uhsteosbwc[address] [place] [address]Dr. Ricardo Rocha Albumin/Globulin [Mass ratio] 0.3 {ratio} Normal [facility] Comment on above: Performed By: #### C MP ####[facility] Rfibgcbmhg77[address] [place], [place] [address]Dr. Ricardo Rocha ALP [Catalytic activity/Vol] 201 U/L Critically high 46-116 [facility] Comment on above: Performed By: #### C MP ####[facility] Wlznghbktb0[address] [place] [address]Dr. Ricardo Rocha ALT [Catalytic activity/Vol] 23 U/L Normal 14-59 [facility] Comment on above: Performed By: #### C MP ####[facility] Gbatcciplg5[address] [place] [address]Dr. Ricardo Rocha Anion gap [Moles/Vol] 16.0 mmol/L Normal [facility] Comment on above: Performed By: #### C MP ####[facility] Pajstibzcj[address] [place], [place] [address]Dr. Ricardo Rocha AST [Catalytic activity/Vol] 21 U/L Normal 15-37 [facility] Comment on above: Performed By: #### C MP ####[facility] Xtaksevjsj84[address] [place], [place] [address]Dr. Ricardo Rocha Bilirubin [Mass/Vol] 0.4 mg/dL Normal 0.2-1.0 [facility] Comment on above: Performed By: #### C MP ####[facility] Zeuneulacr06[address] [place], [place] [address]Dr. Ricardo Rocha Calcium [Mass/Vol] 7.6 mg/dL Critically low 8.5-10.1 [facility] Comment on above: Performed By: #### C MP ####[facility] Pkommfwleo50[address] [place], [place] [address]Dr. Ricardo Rocha Chloride [Moles/Vol] 105 mmol/L Normal 98-107 [facility] Comment on above: Performed By: #### C MP ####[facility] Hbzrkpipzq8170[address] [place], [place] [address]Dr. Ricardo Rocha CO2 [Moles/Vol] 17.3 mmol/L Critically low 21.0-32.[address] [facility] Comment on above: Performed By: #### C MP ####[facility] Jwtdhezavl[address] [place], [place] [address]Dr. Ricardo Rocha Creatinine [Mass/Vol] 1.54 mg/dL Critically high 0.55-1.02 [facility] Comment on above: Performed By: #### C MP ####[facility] Kkjfkcvgpe09[address] [place], [place] [address]Dr. Ricardo Rocha EGFR-AF ANDORRAN 41 mL/min/1.73m2 Critically low >=60 [facility] Comment on above: Performed By: #### C MP ####[facility] Buwqsrgsgm59[address] [place] [address]Dr. Nanomarcial Aj EGFR-NON AF ANDORRAN 34 mL/min/1.73m2 Critically low >=60 [facility] Comment on above: Performed By: #### C MP ####[facility] Kqzkiaaoci45[address] [place], [place] [address]Dr. Ricardo Rocha Globulin (S) [Mass/Vol] 4.7 g/dL Normal [facility] Comment on above: Performed By: #### C MP ####[facility] Msleycepmm5060[address] [place], [place] [address]Dr. Ricardo Rocha Glucose [Mass/Vol] 277 mg/dL Critically high 74-106 [facility] Comment on above: Performed By: #### C MP ####[facility] Cyfydkkiks085[address] [place], [place] [address]Dr. Ricardo Rocha Potassium [Moles/Vol] 3.3 mmol/L Critically low 3.5-5.1 [facility] Comment on above: Performed By: #### C MP ####[facility] Twlzofnyij7018[address] [place], [place] [address]Dr. Ricardo Rocha Protein [Mass/Vol] 6.3 g/dL Critically low 6.4-8.2 [facility] Comment on above: Performed By: #### C MP ####[facility] Ubgxjbxmun9598[address] [place], [place] [address]Dr. Ricardo Rocha Sodium [Moles/Vol] 135 mmol/L Critically low 136-145 [facility] Comment on above: Performed By: #### C MP ####[facility] Dtskkyansi6677[address] [place], [place] [address]Dr. Ricardo Rocha Urea nitrogen [Mass/Vol] 29.0 mg/dL Critically high 7.0-18.0 [facility] Comment on above: Performed By: #### C MP ####[facility] Kbsibcijhw154[address] [place], [place] [address]Dr. Ricardo Rocha Urea nitrogen/Creatinine [Mass ratio] 18.8 mg/mg Normal [facility] Comment on above: Performed By: #### C MP ####[facility] Tclxomsbor038[address] [place], [place] [address]Dr. Ricardo Rocha CBC AUTO DIFFon 06-13-2022 BASO # 0.0 103/ul Normal 0.0-0.[address] [facility] Comment on above: Performed By: #### C BC ####[facility] Wxsujfwmvc0664[address] [place], [place] [address]Dr. Ricardo Rocha Basophils/100 WBC (Bld) 0.2 % Normal 0.2-2.[address] [facility] Comment on above: Performed By: #### C BC ####[facility] Yweesibqmo0475[address] [place], [place] [address]Dr. Ricardo Rocha EO # 0.1 103/ul Normal 0.0-0.[address] [facility] Comment on above: Performed By: #### C BC ####[facility] Bkkodyhbad280[address] [place], [place] [address]Dr. Ricardo Rocha Eosinophils/100 WBC (Bld) 0.6 % Critically low 0.9-7.[address] [facility] Comment on above: Performed By: #### C BC ####[facility] Dgxgmbxjaj4[address] [place], [place] [address]Dr. Ricardo Rocha Erythrocyte distribution width (RBC) [Ratio] 14.2 % Normal 11.0-15.[address] [facility] Comment on above: Performed By: #### C BC ####[facility] Bfpaiopxlh[address] [place], [place] [address]Dr. Riacrdo Rocha Hematocrit (Bld) [Volume fraction] 27.9 % Critically low 36.0-48.[address] [facility] Comment on above: Performed By: #### C BC ####[facility] Ckwxhuuwrw4738[address] [place], [place] [address]Dr. Ricardo Rocha Hemoglobin (Bld) [Mass/Vol] 8.6 g/dL Critically low 12.0-16.[address] [facility] Comment on above: Performed By: #### C BC ####[facility] Savjlnnoin[address] [place] [id number]. Ricardo Rocha IG # 0.08 10e3/ul Critically high 0.00-0.03 [facility] Comment on above: Performed By: #### C BC ####[facility] Pludqsqfsz75[address] [place] [id number]. Ricardo Rocha IG % 0.8 % Critically high 0.0-0.5 [facility] Comment on above: Performed By: #### C BC ####[facility] Aoxdoadhax15[address] [place] [address]Dr. Ricardo Rocha LYMPH # 0.9 103/ul Critically low 1.2-3.8 [facility] Comment on above: Performed By: #### C BC ####[facility] Mhtslzfrsw5287 [place] [address]Dr. Ricardo Rocha Lymphocytes/100 WBC (Bld) 8.9 % Critically low 20.5-60.[address] [facility] Comment on above: Performed By: #### C BC ####[facility] Evnmetiavy32[address] [place] [address]Dr. Ricardo Rocha MANUAL DIFF REQ NO Normal [facility] Comment on above: Performed By: #### C BC ####[facility] Qgjisuhotq4094 [place] [address]Dr. Ricardo Rocha MCH (RBC) [Entitic mass] 25.1 pg Critically low 26.7-34.[address] [facility] Comment on above: Performed By: #### C BC ####[facility] Uxswvgioke92[address] [place] [address]Dr. Ricardo Rocha MCHC (RBC) [Mass/Vol] 30.8 g/dL Normal 29.9-35.[address] [facility] Comment on above: Performed By: #### C BC ####[facility] Mxjpjhfatn0952 [place] [address]Dr. Ricardo Rocha MCV (RBC) [Entitic vol] 81.6 fL Normal 81.0-99.[address] [facility] Comment on above: Performed By: #### C BC ####[facility] Ktfvqrrxbv92[address] [place] [phone]. Ricardo Rocha MONO # 0.6 103/ul Normal 0.3-0.[address] [facility] Comment on above: Performed By: #### C BC ####[facility] Lravbuumua5336 [place] [phone]. Ricardo Rocha Monocytes/100 WBC (Bld) 5.7 % Normal 1.7-12.[address] [facility] Comment on above: Performed By: #### C BC ####[facility] Hxyipkyomf69[address] [place] [phone]. Ricardo Rocha NEUT # 8.4 103/ul Critically high 1.4-6.5 [facility] Comment on above: Performed By: #### C BC ####[facility] Rsbnaijlur[address] [place] [address]Dr. Ricardo Rocha Neutrophils/100 WBC (Bld) 83.8 % Critically high 43.0-75.[address] [facility] Comment on above: Performed By: #### C BC ####[facility] Diggczgryc7830 [place] [phone]. Ricardo Rocha Platelet mean volume (Bld) [Entitic vol] 12.1 fL Normal 9.5-13.[address] [facility] Comment on above: Performed By: #### C BC ####[facility] Vvvdneeikv3164 [place] [phone]. Ricardo Rocha PLT 149 103/ul Critically low 150-450 [facility] Comment on above: Performed By: #### C BC ####[facility] Rdvltxedes8424 [place] [phone]. Ricardo Rocha RBC 3.42 106/ul Critically low 4.20-5.40 [facility] Comment on above: Performed By: #### C BC ####[facility] Uqkxxorgcd3234 [place] [address]Dr. Ricardo Rocha WBC 10.0 103/ul Normal 4.0-11.[address] [facility] Comment on above: Performed By: #### C BC ####[facility] Rayjchmkji[address] [place] [address]Dr. Ricardo Rocha CULTURE OTHERon 06-13-2022 CULTURE OTHER Normal [facility] Comment on above: Performed By: #### O THCX ####[facility] [address]vqsznsozw[address] [place], [place] [address]Dr. Ricardo Rocha CULTURE OTHER Normal [facility] Comment on above: Performed By: #### O THCX ####[facility] Aytoeveqqq6[address] [place], [place] [address]Dr. Ricardo Rocha CULTURE OTHER Normal [facility] Comment on above: Performed By: #### O THCX ####[facility] Vqgpftksgc14[address] [place], [place] [address]Dr. Ricardo Rocha GI PANEL (PCR)on 06-13-2022 Adenovirus F 40/41 Not detected Normal NOT DETECTED [facility] Comment on above: Performed By: #### G IPANEL ####[facility] Ppoqdwswln101[address] [place], [place] [address]Dr. Ricardo Rocha Astrovirus Not detected Normal NOT DETECTED [facility] Comment on above: Performed By: #### G IPANEL ####[facility] Jupphcuhkd[address] [place], [place] [address]Dr. Ricardo Rocha C. Diff toxin A/B Not detected Normal NOT DETECTED [facility] Comment on above: Performed By: #### G IPANEL ####[facility] Jrhgespmxf1116[address] [place], [place] [address]Dr. Ricardo Rocha Campylobacter Not detected Normal NOT DETECTED [facility] Comment on above: Performed By: #### G IPANEL ####[facility] Rdvlifebpu9114[address] [place], [place] [address]Dr. Ricardo Rocha Cryptosporidium Not detected Normal NOT DETECTED [facility] Comment on above: Performed By: #### G IPANEL ####[facility] Zkbjnjjqfn558[address] [place], [place] [address]Dr. Ricardo Rocha Cyclos. Cayetanensis Not detected Normal NOT DETECTED [facility] Comment on above: Performed By: #### G IPANEL ####[facility] Gxtjdxmtwe419[address] [place], [place] [address]Dr. Ricardo Rocha E. Coli O157 Not Applicable Normal Not Applicable [facility] Comment on above: Performed By: #### G IPANEL ####[facility] Sssyxfgcdq0027[address] [place], [place] [address]Dr. Ricardo Rocha E. histolytica Not detected Normal NOT DETECTED [facility] Comment on above: Performed By: #### G IPANEL ####[facility] Hctqtrwadk[address] [place], [place] [address]Dr. Ricardo Rocha EAEC Not detected Normal NOT DETECTED [facility] Comment on above: Performed By: #### G IPANEL ####[facility] Vmyxktkgnx13[address] [place], [place] [address]Dr. Ricardo Rocha EIEC Not detected Normal NOT DETECTED [facility] Comment on above: Performed By: #### G IPANEL ####[facility] Ehepbjtozs7313[address] [place], [place] [address]Dr. [facility] EPEC Not detected Normal NOT DETECTED [facility] Comment on above: Performed By: #### G IPANEL ####[facility] Nmykzjvbqo313[address] [place], [place] [address]Dr. marcial Rocha ETEC Not detected Normal NOT DETECTED [facility] Comment on above: Performed By: #### G IPANEL ####[facility] Mdiaskmxxu8260[address] [place], [place] [address]Dr. Ricardo Rocha G. Lamblia Not detected Normal NOT DETECTED [facility] Comment on above: Performed By: #### G IPANEL ####[facility] Rpxiczycua15[address] [place], [place] [address]Dr. Ricardo Rocha GIPANEL CONTROLS PASSED Normal [facility] Comment on above: Performed By: #### G IPANEL ####[facility] Azadjrjnzb2236[address] [place], [place] [address]Dr. Ricardo CASASNL MONIQUE HEADER GI PANEL BACTERIA Normal [facility] Comment on above: Performed By: #### G IPANEL ####[facility] Xpdczglcym0860[address] [place], [place] [address]Dr. Ricardo CASASNLHD ECOLI GI PANEL DIARRHEAGEN IC E.COLI / SHIGELLA Normal [facility] Comment on above: Performed By: #### G IPANEL ####[facility] Kxejgdexfd3839[address] [place], [place] [address]Dr. Ricardo Rocha GIPNLHD INFO SEE BELOW Normal [facility] Comment on above: Result Comment: EAEC - Enteroaggregative E. Coli EPEC- Enteropathogenic E. Coli ETEC- Enterotoxigenic E. Coli lt/st STEC- Shigella-like toxin-producing E. Coli stx1/stx2 EIEC- Shigella/Enteroinvasive E. Coli Performed By: #### G IPANEL ####[facility] Jwnevdkbbl8244[address] [place], [place] [address]Dr. Ricardo Rocha GIPNLHD PARASITES GI PANEL PARASITES Normal [facility] Comment on above: Performed By: #### G IPANEL ####[facility] Bwsbyyiika114[address] [place], [place] [address]Dr. Ricardo Rocha GIPNLHD VIRUS GI PANEL VIRUSES Normal [facility] Comment on above: Performed By: #### G IPANEL ####[facility] Qyrqyjmeoe9[address] [place], [place] [address]Dr. Ricardo Rocha Norovirus GI/GII Not detected Normal NOT DETECTED [facility] Comment on above: Performed By: #### G IPANEL ####[facility] Dexzasmogf7[address] [place], [place] [address]Dr. Ricardo Rocha P. Shigelloides Not detected Normal NOT DETECTED [facility] Comment on above: Performed By: #### G IPANEL ####[facility] Ztzwozzmau2378[address] [place], [place] [address]Dr. Ricardo Rocha Rotavirus A Not detected Normal NOT DETECTED [facility] Comment on above: Performed By: #### G IPANEL ####[facility] Ebxdyqptcd6098[address] [place], [place] [address]Dr. Ricardo Rocha Salmonella Not detected Normal NOT DETECTED [facility] Comment on above: Performed By: #### G IPANEL ####[facility] Kjaelwannj265[address] [place], [place] [address]Dr. Ricardo Rocha Sapovirus Not detected Normal NOT DETECTED [facility] Comment on above: Performed By: #### G IPANEL ####[facility] Ilrlnniaiz9[address] [place] [address]Dr. Ricardo Rocha STEC Not detected Normal NOT DETECTED [facility] Comment on above: Performed By: #### G IPANEL ####[facility] Zjhfdmcfbd9367 [place] [address]Dr. Ricardo Rocha Vibrio Not detected Normal NOT DETECTED [facility] Comment on above: Performed By: #### G IPANEL ####[facility] Earjorxdnr5383 [place] [address]Dr. Ricardo Rocha Vibrio Cholera Not detected Normal NOT DETECTED [facility] Comment on above: Performed By: #### G IPANEL ####[facility] Jldqdnqubi032[address] [place], [place] [address]Dr. Ricardo Rocha Y. Enterocolitica Not detected Normal NOT DETECTED [facility] Comment on above: Performed By: #### G IPANEL ####[facility] Ypdbanmbjw[address] [place], [place] [address]Dr. Ricardo Rocha IRON AND TIBCon 06-13-2022 % SATURATION 19.9 % Normal [facility] Comment on above: Performed By: #### F ETIBC, B12FOL ####[facility] Eclumvrqkz4858 [place] [address]Dr. Ricardo Rocha Iron [Mass/Vol] 75.0 ug/dL Normal 50.0-170.0 [facility] Comment on above: Performed By: #### F ETIBC, B12FOL ####[facility] Kenexyroxg2832 [place] [address]Dr. Ricardo Rocha TIBC DIRECT 376.0 ug/dL Normal 250.0-450.0 [facility] Comment on above: Performed By: #### F ETIBC, B12FOL ####[facility] Mlzmnqvhxc6739 [place] [address]Dr. Nanomarcial Rocha POINT OF CARE GLUCOSEon 05-22 Glucose [Mass/Vol] 238 mg/dL Critically high 74-106 [facility] Comment on above: Performed By: #### P OCGLUC ####[facility] Kqawjuotoo70[address] [place] [phone]. Ricardo Rocha Glucose [Mass/Vol] 146 mg/dL Critically high 74-106 [facility] Comment on above: Performed By: #### P OCGLUC ####[facility] Gzjwohqveq1122 [place] [phone]. Ricardo Rocha Glucose [Mass/Vol] 143 mg/dL Critically high 74-106 [facility] Comment on above: Performed By: #### P OCGLUC ####[facility] Nenniqfdoi5536 [place] [address]Dr. Ricardo Rocha Glucose [Mass/Vol] 205 mg/dL Critically high 74-106 [facility] Comment on above: Performed By: #### P OCGLUC ####[facility] Ltojbrccbc7142 [place] [address]Dr. Ricardo Rocha Glucose [Mass/Vol] 227 mg/dL Critically high 74-106 [facility] Comment on above: Performed By: #### P OCGLUC ####[facility] Viowtlwmcv6301 [place] [address]Dr. Ricardo Rocha PROF 14(COMP METB)on 022 Albumin [Mass/Vol] 1.5 g/dL Critically low 3.4-5.0 [facility] Comment on above: Performed By: #### C MP ####[facility] Vjyhxcbcho8515 [place] [address]Dr. Ricardo Rocha Albumin/Globulin [Mass ratio] 0.3 {ratio} Normal [facility] Comment on above: Performed By: #### C MP ####[facility] Vlwgqkiepk6615 [place] [address]Dr. Ricardo Rocha ALP [Catalytic activity/Vol] 136 U/L Critically high 46-116 [facility] Comment on above: Performed By: #### C MP ####[facility] Cyvxwuliyd7465 [place] [address]Dr. Ricardo Rocha ALT [Catalytic activity/Vol] 18 U/L Normal 14-59 [facility] Comment on above: Performed By: #### C MP ####[facility] Xwvvlppbpd6969 [place] [address]Dr. Ricardo Rocha Anion gap [Moles/Vol] 10.2 mmol/L Normal [facility] Comment on above: Performed By: #### C MP ####[facility] Kwmrirufeq2125 [place] [address]Dr. Ricardo Rocha AST [Catalytic activity/Vol] 37 U/L Normal 15-[address] [facility] Comment on above: Performed By: #### C MP ####[facility] Owbrepszyo0318[address] [place], [place] [address]Dr. Nnaomarcial Rocha Bilirubin [Mass/Vol] 0.4 mg/dL Normal 0.2-1.0 [facility] Comment on above: Performed By: #### C MP ####[facility] Bfrcqnirqn9[address] [place], [place] [address]Dr. Ricardo Rocha Calcium [Mass/Vol] 8.0 mg/dL Critically low 8.5-10.1 [facility] Comment on above: Performed By: #### C MP ####[facility] Baglskdies07[address] [place], [place] [address]Dr. Ricardo Rocha Chloride [Moles/Vol] 110 mmol/L Critically high 98-107 [facility] Comment on above: Performed By: #### C MP ####[facility] Huvfrdxpgz0[address] [place], [place] [address]Dr. Ricardo Rocha CO2 [Moles/Vol] 18.2 mmol/L Critically low 21.0-32.0 [facility] Comment on above: Performed By: #### C MP ####[facility] Oiobkxnxgj18[address] [place], [place] [address]Dr. Ricardo Rocha Creatinine [Mass/Vol] 1.76 mg/dL Critically high 0.55-1.02 [facility] Comment on above: Performed By: #### C MP ####[facility] Bzxomzalth20[address] [place], [place] [address]Dr. Ricardo Rocha EGFR-AF ANDORRAN 35 mL/min/1.73m2 Critically low >=60 [facility] Comment on above: Performed By: #### C MP ####[facility] Eybhoywjps0810 [place] [phone]. Ricardo Rocha EGFR-NON AF ANDORRAN 29 mL/min/1.73m2 Critically low >=60 [facility] Comment on above: Performed By: #### C MP ####[facility] Uwgoqqsuut1194 [place] [phone]. Ricardo Rocha Globulin (S) [Mass/Vol] 4.7 g/dL Normal [facility] Comment on above: Performed By: #### C MP ####[facility] Glasxfitiw6269 [place] [phone]. Ricardo Rocha Glucose [Mass/Vol] 223 mg/dL Critically high 74-106 [facility] Comment on above: Performed By: #### C MP ####[facility] Chmnqkqorg9078 [place] [address]Dr. Ricardo Rocha Potassium [Moles/Vol] 3.4 mmol/L Critically low 3.5-5.1 [facility] Comment on above: Performed By: #### C MP ####[facility] Bjsdydfddg674[address] [place], [place] [address]Dr. Ricardo Rocha Protein [Mass/Vol] 6.2 g/dL Critically low 6.4-8.2 [facility] Comment on above: Performed By: #### C MP ####[facility] Iupkethzxt9784[address] [place], [place] [address]Dr. Ricardo Rocha Sodium [Moles/Vol] 135 mmol/L Critically low 136-145 [facility] Comment on above: Performed By: #### C MP ####[facility] Cbwrwzjfpm2855 [place] [address]Dr. Ricardo Rocha Urea nitrogen [Mass/Vol] 33.0 mg/dL Critically high 7.0-18.0 [facility] Comment on above: Performed By: #### C MP ####[facility] Uscqspsrtu7677 [place] [address]Dr. Ricardo Aj Urea nitrogen/Creatinine [Mass ratio] 18.8 mg/mg Normal [facility] Comment on above: Performed By: #### C MP ####[facility] Xdohannlnn7084[address] [place], [place] [address]Dr. Ricardo Rocha VANCOMYCIN TROUGHon 06-13-20 22 VANCOMYCIN TROUGH 15.2 ug/ml Normal 5.0-20.0 [facility] Comment on above: Performed By: #### V ANCT ####[facility] Uagltzrrlv954[address] [place], [place] [address]Dr. Ricardo Rocha VIT B12 AND FOLATEon 022 Cobalamin (Vitamin B12) [Mass/Vol] 874.0 pg/mL Normal 193.0-986.[address] [facility] Comment on above: Performed By: #### F ETIBC, B12FOL ####[facility] Jbzmtfrtzr1025[address] [place], [place] [address]Dr. Ricardo Rocha FOLATE 6.60 ng/mL Critically low 8.60-58.90 [facility] Comment on above: Performed By: #### F ETIBC, B12FOL ####[facility] Mrtncxrnxp20[address] [place], [place] [address]Dr. Riacrdo Rocha XR FOOT LT MIN 3 VIEWSon XR FOOT LT MIN [address] [facility] CBC W MANUAL DIFFon 06-12-20 22 ATYPICAL LYMPH # Normal [facility] Comment on above: Performed By: #### C DWAINE ####[facility] Pkfyxxwrkj83[address] [place], [place] [address]Dr. Ricardo Rocha ATYPICAL LYMPH % Normal [facility] Comment on above: Performed By: #### C BCRED ####[facility] Mvexulazog[address] [place], [place] [address]Dr. Ricardo Rocha BAND # 1.9 103/ul Critically high 0.0-0.3 [facility] Comment on above: Performed By: #### C BCRED ####[facility] Cfbvfrdfcf9174[address] [place], [place] [address]Dr. Nanomarcial Rocha BAND % 17 % Critically high 0-5 [facility] Comment on above: Performed By: #### C BCRED ####[facility] [address] [place] [address]Dr. Ricardo Rocha BASOM # 0.00 103/ul Normal 0.00-0.[address] [facility] Comment on above: Performed By: #### C BCMAN ####[facility] Qqxngohigh3761 [place] [address]Dr. Ricardo Rocha BASOM % 0.0 % Critically low 0.2-2.0 [facility] Comment on above: Performed By: #### C BCMAN ####[facility] Xhvqpaovzb6682 [place] [address]Dr. Ricardo Rocha BLAST # Normal [facility] Comment on above: Performed By: #### C BCMAN ####[facility] [address]fceuhlm[address] [place], [place] [address]Dr. Ricardo Rocha BLAST % Normal [facility] Comment on above: Performed By: #### C BCRED ####[facility] Glboiualhj387[address] [place], [place] [address]Dr. Ricardo Rocha CORRECTED WBC Normal 4.0-11.0 [facility] Comment on above: Performed By: #### C BCMAN ####[facility] Guevvqclsf[address] [place], [place] [address]Dr. Ricardo Rocha EOS # 0.00 103/ul Normal 0.00-0.[address] [facility] Comment on above: Performed By: #### C BCMAN ####[facility] Whmwtmcgdj25[address] [place], [place] [address]Dr. Ricardo Rocha EOS% 0.0 % Critically low 0.9-7.0 [facility] Comment on above: Performed By: #### C BCMAN ####[facility] Klvahfawwi87[address] [place], [place] [address]Dr. Ricardo Rocha HCT 28.0 % Critically low 36.0-48.0 [facility] Comment on above: Performed By: #### C BCMAN ####[facility] Ovixkiutwf[address] [place], [place] [address]Dr. Ricardo Rocha HGB 8.6 g/dl Critically low 12.0-16.0 [facility] Comment on above: Performed By: #### C DWAINE ####[facility] Sjxquykohs7942 [place], [place] [address]Zq. Ricardo Rocha HYPOCHROMASIA SLIGHT Normal [facility] Comment on above: Performed By: #### C DWAINE ####[facility] Gyilkmyweb1279 [place], [place] [address]Pv. Ricardo Rocha LYMPHM # 0.77 103/ul Critically low 1.20-3.80 [facility] Comment on above: Performed By: #### C DWAINE ####[facility] Xmtgmxxxvy8022 [place], [place] [address]Md. Ricardo Rocha LYMPHM% 7.0 % Critically low 20.5-60.0 [facility] Comment on above: Performed By: #### C DWAINE ####[facility] Qawshhbkam7060 [place], [place] [address]Tu. Ricardo Rocha MCH 25.1 pg Critically low 26.7-34.0 [facility] Comment on above: Performed By: #### C DWAINE ####[facility] Bpzessgnnj9193 [place] [id number]. Ricardo Rocha MCHC 30.7 g/dl Normal 29.9-35.[address] [facility] Comment on above: Performed By: #### C DWAINE ####[facility] Mnycojvncx9793 [place] [phone]. Ricardo Rocha MCV 81.9 fL Normal 81.0-99.[address] [facility] Comment on above: Performed By: #### C DWAINE ####[facility] Phowihhhgu1906 [place], [place] [address]Hn. Ricardo Rocha METAMYELOCYTE # Normal [facility] Comment on above: Performed By: #### C DWAINE ####[facility] Fnughchavh6733 [place] [phone]. Ricardo Rocha METAMYELOCYTE % Normal [facility] Comment on above: Performed By: #### C DWAINE ####[facility] Rjlszswtlx1727 [place] [phone]. Ricardo Rocha MONOM# 0.11 103/ul Critically low 0.30-0.80 [facility] Comment on above: Performed By: #### C DWAINE ####[facility] Lwnhbqvoah5515 [place] [phone]. Ricardo Rocha MONOM% 1.0 % Critically low 1.7-12.0 [facility] Comment on above: Performed By: #### C DWAINE ####[facility] Qmzmmxnnfh0756 [place] [address]Dr. Ricardo Rocha MPV 12.6 fL Normal 9.5-13.5 [facility] Comment on above: Performed By: #### C BCRED ####[facility] Hnulicneyz0983 [place] [address]Dr. Ricardo Rocha MYELOCYTE # Normal [facility] Comment on above: Performed By: #### C DWAINE ####[facility] Epdsnimjni2455 [place] [address]Dr. Ricardo Rocha MYELOCYTE % Normal [facility] Comment on above: Performed By: #### C DWAINE ####[facility] Mrrimftpuf0952 [place] [address]Dr. Ricardo Rocha NRBC Normal [facility] Comment on above: Performed By: #### C DWAINE ####[facility] Paucdwvyts0090 [place] [phone]. Ricardo Rocha PLT 140 103/ul Critically low 150-450 [facility] Comment on above: Performed By: #### C DWAINE ####[facility] Hvzxeylilv3693 [place] [phone]. Ricardo Rocha RBC 3.42 106/ul Critically low 4.20-5.40 [facility] Comment on above: Performed By: #### C DWAINE ####[facility] Zhnjhqjasi7920 [place] [address]Dr. Ricardo Rocha RDW 13.7 % Normal 11.0-15.0 [facility] Comment on above: Performed By: #### C DWAINE ####[facility] Wbknjjinmc6[address] [place], [place] [address]Dr. Ricardo Rocha SEG # 8.25 103/ul Critically high 1.40-6.50 [facility] Comment on above: Performed By: #### C BCMAN ####[facility] Nkiqyiobrg0909 [place] [phone]. Ricardo Rocha SEG % 75.0 % Normal 43.0-75.0 [facility] Comment on above: Performed By: #### C BCMAN ####[facility] Phytaumqkg8048 [place] [phone]. Ricardo Rocha WBC 11.0 103/ul Normal 4.0-11.0 [facility] Comment on above: Performed By: #### C BCMAN ####[facility] Yyrzcvqczt2801 [place] [address]Dr. Ricardo Rocha POINT OF CARE GLUCOSEon 05-22 Glucose [Mass/Vol] 200 mg/dL Critically high 74-106 [facility] Comment on above: Performed By: #### P OCGLUC ####[facility] Cemknkanuf4020 [place] [address]Dr. Ricardo Rocha Glucose [Mass/Vol] 165 mg/dL Critically high 74-106 [facility] Comment on above: Performed By: #### P OCGLUC ####[facility] Yxpbtjciut8166 [place] [address]Dr. Ricardo Rocha Glucose [Mass/Vol] 152 mg/dL Critically high 74-106 [facility] Comment on above: Performed By: #### P OCGLUC ####[facility] Eomixfqptv3186 [place] [address]Dr. Ricardo Rocha Glucose [Mass/Vol] 154 mg/dL Critically high 74-106 [facility] Comment on above: Performed By: #### P OCGLUC ####[facility] Kjdfxemypp[address] [place], [place] [address]Dr. Ricardo Rocha PROF 14(COMP METB)on 022 Albumin [Mass/Vol] 1.9 g/dL Critically low 3.4-5.0 [facility] Comment on above: Performed By: #### C MP ####[facility] Cflxaveeqf3029 [place] [address]Dr. Ricardo Rocha Albumin/Globulin [Mass ratio] 0.4 {ratio} Normal [facility] Comment on above: Performed By: #### C MP ####[facility] Fbbudivqrw9932 [place] [address]Dr. Ricardo Rocha ALP [Catalytic activity/Vol] 68 U/L Normal 46-[address] [facility] Comment on above: Performed By: #### C MP ####[facility] Dewmplifbk179[address] [place], [place] [address]Dr. Ricardo Rocha ALT [Catalytic activity/Vol] 16 U/L Normal 14-59 [facility] Comment on above: Performed By: #### C MP ####[facility] Usdihkybbg490[address] [place], [place] [address]Dr. Ricardo Rocha Anion gap [Moles/Vol] 15.1 mmol/L Normal [facility] Comment on above: Performed By: #### C MP ####[facility] Qchkokfaze493166 [address] [place], [place] [address]Dr. Ricardo Rocha AST [Catalytic activity/Vol] 26 U/L Normal 15-[address] [facility] Comment on above: Performed By: #### C MP ####[facility] Zqrlbuhoya964[address] [place], [place] [address]Dr. Ricardo Rocha Bilirubin [Mass/Vol] 0.3 mg/dL Normal 0.2-1.0 [facility] Comment on above: Performed By: #### C MP ####[facility] Wlamaptnxg1469[address] [place], [place] [address]Dr. Ricardo Rocha Calcium [Mass/Vol] 8.0 mg/dL Critically low 8.5-10.[address] [facility] Comment on above: Performed By: #### C MP ####[facility] Wixjnnpxzk2688[address] [place], [place] [address]Dr. Ricardo Rocha Chloride [Moles/Vol] 110 mmol/L Critically high 98-[address] [facility] Comment on above: Performed By: #### C MP ####[facility] Qdyxgmalzz532[address] [place], [place] [address]Dr. Ricardo Rocha CO2 [Moles/Vol] 18.0 mmol/L Critically low 21.0-32.0 [facility] Comment on above: Performed By: #### C MP ####[facility] Xzrzabxkxv9066 [place] [address]Dr. Ricardo Rocha Creatinine [Mass/Vol] 1.97 mg/dL Critically high 0.55-1.02 [facility] Comment on above: Performed By: #### C MP ####[facility] Wypvkodted4024[address] [place], [place] [address]Dr. Ricardo Aj EGFR-AF ANDORRAN 31 mL/min/1.73m2 Critically low >=60 [facility] Comment on above: Performed By: #### C MP ####[facility] Jcainbnqkh1467[address] [place], [place] [address]Dr. Nanomarcial Aj EGFR-NON AF ANDORRAN 26 mL/min/1.73m2 Critically low >=60 [facility] Comment on above: Performed By: #### C MP ####[facility] Atlgbnezme39[address] [place], [place] [address]Dr. Ricardo Aj Globulin (S) [Mass/Vol] 5.2 g/dL Normal [facility] Comment on above: Performed By: #### C MP ####[facility] Vjtqhbvbox5522[address] [place], [place] [address]Dr. Ricardo Aj Glucose [Mass/Vol] 146 mg/dL Critically high 74-106 [facility] Comment on above: Performed By: #### C MP ####[facility] Xdmprymamh0225[address] [place], [place] [address]Dr. Ricardo Aj Potassium [Moles/Vol] 3.1 mmol/L Critically low 3.5-5.1 [facility] Comment on above: Performed By: #### C MP ####[facility] Aheeuhjyma664[address] [place], [place] [address]Dr. Ricardo Aj Protein [Mass/Vol] 7.1 g/dL Normal 6.4-8.2 [facility] Comment on above: Performed By: #### C MP ####[facility] Inzlufsnlb4422[address] [place], [place] [address]Dr. Ricardo Rocha Sodium [Moles/Vol] 140 mmol/L Normal 136-145 [facility] Comment on above: Performed By: #### C MP ####[facility] Imveapbohw1844 [place] [address]Dr. Ricardo Rocha Urea nitrogen [Mass/Vol] 30.0 mg/dL Critically high 7.0-18.[address] [facility] Comment on above: Performed By: #### C MP ####[facility] Sebspspfqi65[address] [place], [place] [address]Dr. Ricardo Rocha Urea nitrogen/Creatinine [Mass ratio] 15.2 mg/mg Normal [facility] Comment on above: Performed By: #### C MP ####[facility] Kqfraybwqy00[address] [place], [place] [address]Dr. Ricardo Rocha CBC W MANUAL DIFFon 06-11-20 22 ATYPICAL LYMPH # Normal [facility] Comment on above: Performed By: #### C BCMAN ####[facility] Bwcpqlosxk663[address] [place], [place] [address]Dr. Ricardo Rocha ATYPICAL LYMPH % Normal [facility] Comment on above: Performed By: #### C BCMAN ####[facility] Zcokrucdpi6834[address] [place], [place] [address]Dr. Ricardo Rocha BAND # 1.1 103/ul Critically high 0.0-0.3 [facility] Comment on above: Performed By: #### C BCMAN ####[facility] Fpbnqnnmal9918[address] [place], [place] [address]Dr. Ricardo Aj BAND % 12 % Critically high 0-5 [facility] Comment on above: Performed By: #### C BCMAN ####[facility] Fgzpojyhml2914[address] [place], [place] [address]Dr. Ricardo Aj BASOM # 0.00 103/ul Normal 0.00-0.[address] [facility] Comment on above: Performed By: #### C BCMAN ####[facility] Msccwkdbxc8565[address] [place], [place] [address]Dr. Ricardo Aj BASOM % 0.0 % Critically low 0.2-2.0 [facility] Comment on above: Performed By: #### C BCRED ####[facility] Hlegttwnjr4169 [place] [address]Dr. Ricardo Rocha BLAST # Normal [facility] Comment on above: Performed By: #### C BCRED ####[facility] Dkumqmrjhz8392 [place] [phone]. Ricardo Rocha BLAST % Normal [facility] Comment on above: Performed By: #### C DWAINE ####[facility] Dakcsxfouy9328 [place] [address]Dr. Ricardo Rocha CORRECTED WBC Normal 4.0-11.0 [facility] Comment on above: Performed By: #### C DWAINE ####[facility] Unrfrlqtjc1293 [place] [address]Dr. Ricardo Rocha EOS # 0.00 103/ul Normal 0.00-0.70 [facility] Comment on above: Performed By: #### C DWAINE ####[facility] Wwgcvtivou07[address] [place], [place] [address]Dr. Ricardo Rocha EOS% 0.0 % Critically low 0.9-7.0 [facility] Comment on above: Performed By: #### C DWAINE ####[facility] Rtgqmfvgmj19[address] [place], [place] [address]Dr. Ricardo Rocha HCT 32.6 % Critically low 36.0-48.0 [facility] Comment on above: Performed By: #### C DWAINE ####[facility] Tjzyazqnpm0[address] [place], [place] [address]Dr. Ricardo Rocha HGB 10.5 g/dl Critically low 12.0-16.0 [facility] Comment on above: Performed By: #### C BCRED ####[facility] Nomscwqtbv1948[address] [place], [place] [address]Dr. Ricardo Rocha LYMPHM # 0.46 103/ul Critically low 1.20-3.80 [facility] Comment on above: Performed By: #### C DWAINE ####[facility] Gpbbarubkg414[address] [place], [place] [address]Dr. Ricardo Rocha LYMPHM% 5.0 % Critically low 20.5-60.0 [facility] Comment on above: Performed By: #### C DWAINE ####[facility] Gsrmzybxnn3786 [place] [address]Dr. Ricardo Rocha MCH 25.3 pg Critically low 26.7-34.0 [facility] Comment on above: Performed By: #### C DWAINE ####[facility] Jvrblxbjas5046 [place] [address]Dr. Ricardo Rocha MCHC 32.2 g/dl Normal 29.9-35.[address] [facility] Comment on above: Performed By: #### C DWAINE ####[facility] Ytvgqiwieo4828 [place] [address]Dr. Ricardo Rocha MCV 78.6 fL Critically low 81.0-99.0 [facility] Comment on above: Performed By: #### C DWAINE ####[facility] Wcfytqjrob[address] [place], [place] [address]Dr. Ricardo Rocha METAMYELOCYTE # Normal [facility] Comment on above: Performed By: #### C DWAINE ####[facility] Jcidpirbcn9663 [place] [address]Dr. Ricardo Rocha METAMYELOCYTE % Normal [facility] Comment on above: Performed By: #### C DWAINE ####[facility] Sfvzosntvu6457 [place] [address]Dr. Ricardo Rocha MONOM# 0.28 103/ul Critically low 0.30-0.80 [facility] Comment on above: Performed By: #### C DWAINE ####[facility] Sduznwpawn1550 [place] [address]Dr. Ricardo Rocha MONOM% 3.0 % Normal 1.7-12.[address] [facility] Comment on above: Performed By: #### C DWAINE ####[facility] Eonlnnnuol4258 [place] [address]Dr. Ricardo Rocha MPV 11.4 fL Normal 9.5-13.[address] [facility] Comment on above: Performed By: #### C BCMAN ####[facility] Aptqjkdjdg3776 [place], [place] [address]Rq. Ricardo Rocha MYELOCYTE # Normal [facility] Comment on above: Performed By: #### C BCMAN ####[facility] Fcxflsnsot0857 [place] [phone]. Ricardo Rocha MYELOCYTE % Normal [facility] Comment on above: Performed By: #### C BCRED ####[facility] Dxzhvtfjpg0005 [place] [phone]. Ricardo Rocha NRBC Normal [facility] Comment on above: Performed By: #### C BCRED ####[facility] Kkxphtfims1714 [place] [phone]. Ricardo Rocha PLT 154 103/ul Normal 150-450 [facility] Comment on above: Performed By: #### C BCRED ####[facility] Mkfctbeupc9122 [place] [phone]. Ricardo Rocha RBC 4.15 106/ul Critically low 4.20-5.40 [facility] Comment on above: Performed By: #### C BCRED ####[facility] Lipsvxbigv0593 [place] [phone]. Ricardo Rocha RDW 12.8 % Normal 11.0-15.0 [facility] Comment on above: Performed By: #### C BCRED ####[facility] Ejbzdryqkj0970 [place] [phone]. Ricardo Rocha SEG # 7.36 103/ul Critically high 1.40-6.50 [facility] Comment on above: Performed By: #### C BCRED ####[facility] Ugyqwftnsq7597 [place] [phone]. Ricardo Rocha SEG % 80.0 % Critically high 43.0-75.0 [facility] Comment on above: Performed By: #### C BCRED ####[facility] Pouctatbql0943 [place] [phone]. Ricardo Rocha WBC 9.2 103/ul Normal 4.0-11.0 [facility] Comment on above: Performed By: #### C BCMAN ####[facility] Xthmlqbcsc3070 [place] [phone]. Ricardo Rocha CT HEAD WO CONon 06-11-2022 CT HEAD WO CON Normal [facility] CULTURE ANAEROBICon 06-11-20 CULTURE ANAEROBIC Culture Observations : NO GROWTH OF ANAEROBES AT 72 HOURS. Normal [facility] Comment on above: Performed By: #### A NACX ####[facility] Mzaopygliy[address] [place], [place] [address]Dr. Ricardo [facility] CULTURE ANAEROBIC Culture Observations : NO GROWTH OF ANAEROBES AT 72 HOURS. [facility] Comment on above: Performed By: #### A NACX ####[facility] Ahuoxzhsuu638[address] [place], [place] [address]Dr. Ricardo Rocha CULTURE BLOODon 06-11-2022 Microscopic examination of blood, culture Culture Observations: Aerobic bottle positive only. Culture Observations: No growth at 5 days in anaerobic bottle Culture Observations: See for Susceptibility testing. Isolate 1 Staphylococcus aureus Growth of Normal [facility] Comment on above: Performed By: #### B LDCX2 ####[facility] Mbyyykvtcu74[address] [place], [place] [address]Dr. Ricardo Rocha CULTURE URINEon 06-11-2022 CULTURE URINE Culture Observations : LIGHT GROWTH OF MIXED GENITAL SHAHLA. NO POTENTIAL PATHOGENS SEEN. Normal [facility] Comment on above: Performed By: #### U RCX ####[facility] Udbihzrrdq363[address] [place], [place] [address]Dr. Ricardo Rocha Covid-19 PCR (CVDTBH)on 05-22 SARS-CoV-2 (COVID-19) RNA ADRIEL+probe Ql (Unsp spec) Not detected Normal NOT DETECTED [facility] Comment on above: Result Comment: When [...] for this test is supported by the [employer] of Health and Human Service's declaration that [...] longer be used). Performed By: #### [facility] ####[facility] Rqbadmjrrz5544[address] [place], [place] [address]Dr. Ricardo Rocha ER URINE PROFILEon 2 Bilirubin Ql (U) Negative Normal NEGATIVE [facility] Comment on above: Performed By: #### SHAYNA ELENA ####[facility] Lqoumjkxey0[address] [place], [place] [address]Dr. Ricardo Rocha Clarity (U) CLEAR Normal CLEAR [facility] Comment on above: Performed By: #### SHAYNA ELENA ####[facility] Khjidymadh789[address] [place], [place] [address]Dr. Ricardo Rocha Color (U) LT. YELLOW Normal YELLOW [facility] Comment on above: Performed By: #### SHAYNA ELENA ####[facility] Ebdlxiadje9812[address] [place], [place] [address]Dr. Ricardo Rocha ERUAHD A micrscopic examination will be performed if indicated. Normal [facility] Comment on above: Performed By: #### SHAYNA ELENA ####[facility] Sjjllttiqq7710[address] [place], [place] [address]Dr. Ricardo Rocha Glucose Ql (U) >1000 Abnormal NEGATIVE [facility] Comment on above: Performed By: #### JOSLYN ELENARO ####[facility] Lbwyvojfkt416[address] [place], [place] [address]Dr. Ricardo Rocha Hemoglobin Ql (U) LARGE Abnormal NEGATIVE [facility] Comment on above: Performed By: #### SHAYNA ELENA ####[facility] Flwxvelvhw1238[address] [place], [place] [address]Dr. Ricardo Rocha Ketones Ql (U) 15 mg/dl Abnormal NEGATIVE [facility] Comment on above: Performed By: #### SHAYNA ELENA ####[facility] Eruyxdzdxh301[address] [place], [place] [address]Dr. Ricardo Rocha LEUKOCYTES Negative Normal NEGATIVE [facility] Comment on above: Performed By: #### SHAYNA ELENA ####[facility] Jvlrnjcmgb9398 [place] [address]Dr. Ricardo Rocha Nitrite Ql (U) Negative Normal NEGATIVE [facility] Comment on above: Performed By: #### SHAYNA ELENA ####[facility] Fjfajtfzmu4[address] [place], [place] [address]Dr. Ricardo Rocha pH (U) 6.0 [pH] Normal 5-9 [facility] Comment on above: Performed By: #### SHAYNA ELENA ####[facility] Kbluooydvk1120[address] [place], [place] [address]Dr. Ricardo Rocha Protein (U) [Mass/Vol] 100 mg/dL Abnormal NEGATIVE/ TRACE [facility] Comment on above: Performed By: #### SHAYNA ELENA ####[facility] Fzzrcpxkjr279[address] [place], [place] [address]Dr. Ricardo Rocha SPEC GRAVITY 1.020 Normal 1.005-<=1.02 5 [facility] Comment on above: Performed By: #### SHAYNA ELENA ####[facility] Ufdymmbuuv994[address] [place], [place] [address]Dr. Ricardo Rocha UR MICRO IND INDICATED Normal [facility] Comment on above: Performed By: #### SHAYNA ELENA ####[facility] Aupltlgoft958[address] [place], [place] [address]Dr. Ricardo Rocha Urobilinogen Qn (U) 0.2 {Madeleine'U}/dL Normal 0.2 - 1. [address] [facility] Comment on above: Performed By: #### SHAYNA ELENA ####[facility] Sfdleejfzv34[address] [place], [place] [address]Dr. Ricardo Rocha GRAM STAINon 06-11-[address] [facility] Comment on above: Performed By: #### G STAIN ####[facility] Zaazdzqldc3748 [place] [address]Dr. Ricardo Rocha EPITHELIALS Normal [facility] Comment on above: Performed By: #### G STAIN ####[facility] Xuasvknxph5112 [place] [address]Dr. Ricardo Rocha FUNGAL ELEMENTS Normal [facility] Comment on above: Performed By: #### G STAIN ####[facility] Wdlhdgfund2974 [place] [address]Dr. Ricardo Rocha GRAM NEG BACILLI Normal [facility] Comment on above: Performed By: #### G STAIN ####[facility] Prmqnciuen2138 [place] [address]Dr. Ricardo Rocha GRAM NEG DIPPLOCOCCI Normal [facility] Comment on above: Performed By: #### G STAIN ####[facility] Jppfsykskf[address] [place], [place] [address]Dr. Ricardo Rocha GRAM POS BACILLI Normal [facility] Comment on above: Performed By: #### G STAIN ####[facility] Mftiydpkln[address] [place], [place] [address]Dr. Ricardo Rocha GRAM POSITIVE COCCI MANY Normal [facility] Comment on above: Performed By: #### G STAIN ####[facility] Hkwxlugsoa5446 [place] [address]Dr. Ricardo Rocha GRAM STAIN SOURCE Left great toe tissu e after washout-clean Normal [facility] Comment on above: Performed By: #### G STAIN ####[facility] Ppdlcmcvax5873 [place] [address]Dr. Ricardo Rocha GS_DIPTH Normal [facility] Comment on above: Performed By: #### G STAIN ####[facility] Oovmonophl3298 [place] [address]Dr. Ricardo Rocha WBC RARE Normal [facility] Comment on above: Performed By: #### G STAIN ####[facility] [address]qhpugpffp[address] [place], [place] [address]Dr. Rciardo Rocha DIPHTHEROIDS Normal [facility] Comment on above: Performed By: #### G STAIN ####[facility] Dvslcdnnex5398 [place] [address]Dr. Ricardo Rocha EPITHELIALS Normal [facility] Comment on above: Performed By: #### G STAIN ####[facility] Segrqobzxv4233 [place] [address]Dr. Ricardo Rocha FUNGAL ELEMENTS Normal [facility] Comment on above: Performed By: #### G STAIN ####[facility] Sjimrbwtxm4666 [place] [address]Dr. Ricardo Rocha GRAM NEG BACILLI Normal [facility] Comment on above: Performed By: #### G STAIN ####[facility] [facility] Nsmqerocmm[address] [place], [place] [address]Dr. Ricardo Rocha GRAM NEG DIPPLOCOCCI Normal [facility] Comment on above: Performed By: #### G STAIN ####[facility] Yvjitvdtbo9[address] [place], [place] [address]Dr. Ricardo Rocha GRAM POS BACILLI Normal The [facility] Comment on above: Performed By: #### G STAIN ####[facility] Dijbmtrqbo05[address] [place], [place] [address]Dr. Ricardo Rocha GRAM POSITIVE COCCI RARE Normal The [facility] Comment on above: Performed By: #### G STAIN ####[facility] Zflggokunv6739[address] [place], [place] [address]Dr. Ricardo Rocha GRAM STAIN SOURCE Left great toe Normal [facility] Comment on above: Performed By: #### G STAIN ####[facility] [address]gzbsaegz[address] [place] [address]Dr. Ricardo Rocha GS_DIPTH Normal [facility] Comment on above: Performed By: #### G STAIN ####[facility] Aiuyohltgz852266 [address] [place], [place] [address]Dr. Ricardo Rocha WBC RARE Normal [facility] Comment on above: Performed By: #### G STAIN ####[facility] Telmtxtfkl7845[address] [place], [place] [address]Dr. Ricardo Rocha DIPHTHEROIDS Normal [facility] Comment on above: Performed By: #### G STAIN ####[facility] Jrimblcdeb[address] [place] [address]Dr. Ricardo Rocha EPITHELIALS Normal [facility] Comment on above: Performed By: #### G STAIN ####[facility] Jwruhgvjou[address] [place] [address]Dr. Ricardo Rocha FUNGAL ELEMENTS Normal The [facility] Comment on above: Performed By: #### G STAIN ####[facility] Rneckepkwu52[address] [place] [address]Dr. Ricardo Rocha GRAM NEG BACILLI Normal The [facility] Comment on above: Performed By: #### G STAIN ####[facility] Gttuaegnrc3705[address] [place], [place] [address]Dr. Ricardo Rocha GRAM NEG DIPPLOCOCCI Normal [facility] Comment on above: Performed By: #### G STAIN ####[facility] Atbtozyigq856466 [address] [place], [place] [address]Dr. Ricardo Rocha GRAM POS BACILLI Normal The [facility] Comment on above: Performed By: #### G STAIN ####[facility] Ziuwoumwdp9[address] [place], [place] [address]Dr. Ricardo Rocha GRAM POSITIVE COCCI FEW Normal The [facility] Comment on above: Performed By: #### G STAIN ####[facility] Xkuxawyhrv8836[address] [place], [place] [address]Dr. Ricardo Rocha GRAM STAIN SOURCE Left great toe abscess Normal [facility] Comment on above: Performed By: #### G STAIN ####[facility] Didlzhymuo[address] [place] [address]Dr. Ricardo Rocha GS_DIPTH Normal [facility] Comment on above: Performed By: #### G STAIN ####[facility] Whgsodqhnk855366 [address] [place], [place] [address]Dr. Ricardo Rocha WBC FEW Normal [facility] Comment on above: Performed By: #### G STAIN ####[facility] Wrseamzxzj6905[address] [place], [place] [address]Dr. Ricardo Rocha LACTATE/LACTIC ACIDon 2021 Lactate [Moles/Vol] 2.2 mmol/L Critically high 0.4-1.9 [facility] Comment on above: Performed By: #### L ACT ####[facility] Gclsmjqtjl278[address] [place], [place] [address]Dr. Ricardo Rocha POINT OF CARE GLUCOSEon 05-22 Glucose [Mass/Vol] 133 mg/dL Critically high -106 [facility] Comment on above: Performed By: #### P OCGLUC ####[facility] Hzwzvhclfu257366 [address] [place], [place] [address]Dr. Ricardo Rocha Glucose [Mass/Vol] 215 mg/dL Critically high -106 [facility] Comment on above: Performed By: #### P OCGLUC ####[facility] Zpptapdglz669266 [address] [place], [place] [address]Dr. Ricardo Rocha Glucose [Mass/Vol] 207 mg/dL Critically high -106 [facility] Comment on above: Performed By: #### P OCGLUC ####[facility] Bsrhawscqe1878[address] [place], [place] [address]Dr. Ricardo Rocha Glucose [Mass/Vol] 314 mg/dL Critically high -106 [facility] Comment on above: Performed By: #### P OCGLUC ####[facility] Buuaioipgm4495[address] [place], [place] [address]Dr. Ricardo Rocha Glucose [Mass/Vol] 496 mg/dL Critically high -106 [facility] Comment on above: Performed By: #### P OCGLUC ####[facility] Ypkmdachve066066 [address] [place], [place] [address]Dr. Ricardo Rocha Glucose [Mass/Vol] 561 mg/dL Critically high -106 [facility] Comment on above: Result Comment: Prev iously Confirmed Performed By: #### P OCGLUC ####[facility] Zuqlbicchb040266 [address] [place], [place] [address]Dr. Ricardo Rocha PROF 14(COMP METB)on 022 Albumin [Mass/Vol] 2.4 g/dL Critically low 3.4-5.0 [facility] Comment on above: Performed By: #### C MP ####[facility] Viuirfaepe[address] [place] [address]Dr. Ricardo Rocha Albumin/Globulin [Mass ratio] 0.4 {ratio} Normal [facility] Comment on above: Performed By: #### C MP ####[facility] Stapkqgtle6243 [place] [address]Dr. Ricardo Rocha ALP [Catalytic activity/Vol] 82 U/L Normal 46-[address] [facility] Comment on above: Performed By: #### C MP ####[facility] Xwahjijkev4740[address] [place], [place] [address]Dr. Ricardo Aj ALT [Catalytic activity/Vol] 12 U/L Critically low 14-59 [facility] Comment on above: Performed By: #### C MP ####[facility] Anliquwvfp962866 [address] [place], [place] [address]Dr. Nanomarcial Aj Anion gap [Moles/Vol] 15.1 mmol/L Normal [facility] Comment on above: Performed By: #### C MP ####[facility] Mdvtyxtata210866 [address] [place], [place] [address]Dr. Ricardo Aj AST [Catalytic activity/Vol] 14 U/L Critically low 15-37 [facility] Comment on above: Performed By: #### C MP ####[facility] Jtdizyibrb5611[address] [place], [place] [address]Dr. Ricardo Aj Bilirubin [Mass/Vol] 0.4 mg/dL Normal 0.2-1.0 [facility] Comment on above: Performed By: #### C MP ####[facility] Bythzjuskp6959[address] [place], [place] [address]Dr. Ricardo Aj Calcium [Mass/Vol] 8.8 mg/dL Normal 8.5-10.1 The [facility] Comment on above: Performed By: #### C MP ####[facility] Eespgptzfq515[address] [place], [place] [address]Dr. Ricardo Rocha Chloride [Moles/Vol] 105 mmol/L Normal 98-[address] [facility] Comment on above: Performed By: #### C MP ####[facility] Axmgpoqzms2554[address] [place], [place] [address]Dr. Rciardo Rocha CO2 [Moles/Vol] 21.2 mmol/L Normal 21.0-32.0 [facility] Comment on above: Performed By: #### C MP ####[facility] Tppkrqdzsc1781 [place] [address]Dr. Ricardo Rocha Creatinine [Mass/Vol] 2.03 mg/dL Critically high 0.55-1.02 [facility] Comment on above: Performed By: #### C MP ####[facility] Xkqszgkgjq3567 [place] [address]Dr. Ricardo Rocha EGFR-AF ANDORRAN 30 mL/min/1.73m2 Critically low >=60 [facility] Comment on above: Performed By: #### C MP ####[facility] Lxsikctjqb0399 [place] [address]Dr. Ricardo Aj EGFR-NON AF ANDORRAN 25 mL/min/1.73m2 Critically low >=[address] [facility] Comment on above: Performed By: #### C MP ####[facility] Gdzssyxlys8664 [place] [address]Dr. Ricardo Aj Globulin (S) [Mass/Vol] 5.7 g/dL Normal [facility] Comment on above: Performed By: #### C MP ####[facility] Kdopsoefkx2392 [place] [address]Dr. Ricardo Aj Glucose [Mass/Vol] 309 mg/dL Critically high 74-106 [facility] Comment on above: Performed By: #### C MP ####[facility] Yrozcqrqix6598 [place] [address]Dr. Ricardo Aj Potassium [Moles/Vol] 3.3 mmol/L Critically low 3.5-5.[address] [facility] Comment on above: Performed By: #### C MP ####[facility] Nvvpeyvoma385[address] [place], [place] [address]Dr. Ricardo Aj Protein [Mass/Vol] 8.1 g/dL Normal 6.4-8.2 The [facility] Comment on above: Performed By: #### C MP ####[facility] Hbbohbxuuc4182 [place] [address]Dr. Ricardo Rocha Sodium [Moles/Vol] 138 mmol/L Normal 136-145 The [facility] Comment on above: Performed By: #### C MP ####[facility] Jvhhvtxhje7625[address] [place], [place] [address]Dr. Ricardo Rocha Urea nitrogen [Mass/Vol] 37.0 mg/dL Critically high 7.0-18.[address] [facility] Comment on above: Performed By: #### C MP ####[facility] Dcsfdpemks0900[address] [place], [place] [address]Dr. Ricardo Rocha Urea nitrogen/Creatinine [Mass ratio] 18.2 mg/mg Normal [facility] Comment on above: Performed By: #### C MP ####[facility] Cqanwfaxhv225[address] [place], [place] [address]Dr. Ricardo Rocha SED RATE [facility] 2021 SED RATE >130 Critically high <=30 [facility] Comment on above: Performed By: #### S EDR ####[facility] Hkfqsfnxqh68[address] [place], [place] [address]Dr. Ricardo Aj URINE MICROSCOPIC ONLYon AMORPHOUS CRYSTALS MODERATE Normal The [facility] Comment on above: Performed By: #### JOSLYN ELENARO ####[facility] Vlbucraemq3[address] [place], [place] [address]Dr. Ricardo Aj BACTERIA MODERATE Abnormal NONE SEEN [facility] Comment on above: Performed By: #### JOSLYN ELENARO ####[facility] Pqyubnsqdf617[address] [place], [place] [address]Dr. Ricardo Rocha Bacteria identified Cx Nom (U) INDICATED Normal [facility] Comment on above: Performed By: #### JOSLYN ELENARO ####[facility] Lflzyppisd039[address] [place], [place] [address]Dr. iRcardo Rocha CAST NONE SEEN Normal NONE SEEN [facility] Comment on above: Performed By: #### JOSLYN ELENARO ####[facility] Lprsknygqc1657[address] [place], [place] [address]Dr. Ricardo Rocha Crystals LM Nom (Urine sed) SEEN Abnormal NONE SEEN [facility] Comment on above: Performed By: #### E RUR UMICRO ####[facility] Rymnoutrls[address] [place] [address]Dr. Ricardo Rocha Epithelial cells LM Ql (Urine sed) NONE SEEN Normal NONE SEEN /RARE [facility] Comment on above: Performed By: #### E RUR UMICRO ####[facility] Zuiyarlzqu0822 [place] [address]Dr. Ricardo Rocha MUCOUS NONE SEEN Normal NONE SEEN [facility] Comment on above: Performed By: #### E RURaquel UMICRO ####[facility] Epmpnydyaj0779 [place] [address]Dr. Ricardo Rocha RBC 2-5 Abnormal 0-[address] [facility] Comment on above: Performed By: #### Jennifer HINOJOSA UMICRO ####[facility] Ukbnsdnnfr33[address] [place], [place] [address]Dr. Ricardo Rocha WBC 5-10 Abnormal NONE SEEN [facility] Comment on above: Performed By: #### Jennifer HINOJOSA UMICRO ####[facility] Evdumbhtzg5245[address] [place], [place] [address]Dr. Ricardo Rocha XR CHEST 1 Von 06-11-2022 XR CHEST [address] [facility] XR FOOT LT MIN 3 VIEWSon XR FOOT LT MIN [address] [facility] XR FOOT LT MIN [address] [facility] ACETONE SERUMon 06-10-2022 ACETONE Negative Normal NEGATIVE [facility] Comment on above: Performed By: #### A CETON ####[facility] Qeugnpbgxs[address] [place], [place] [address]Dr. Ricardo Rocha AMMONIAon 06-10-2022 Ammonia (P) [Mass/Vol] ug/dL Critically low -[address] [facility] Comment on above: Performed By: #### A MM ####[facility] Qmkcjlomfg4740 [place] [address]Dr. Ricardo Rocha BLOOD CULTURE ID PANELon A. baumannii Not detected Normal NOT DETECTED The [facility] Comment on above: Performed By: #### B CID2 ####[facility] Coyhlgfwkt[address] [place] [id number]. Yimarcial Rocha Bacteriodes fragilis Not detected Normal NOT DETECTED [facility] Comment on above: Performed By: #### B CID2 ####[facility] Xsmwljsxte7513 [place] [id number]. Yilan Rocha BCID CONTROLS PASSED Normal The [facility] Comment on above: Performed By: #### B CID2 ####[facility] Lprwmsiwca0827 [place] [address]Dr. Yimarcial Rocha BCIDBTHD BLOOD CULTURE BOTTLE INFORMATION Normal [facility] Comment on above: Performed By: #### B CID2 ####[facility] Qbhwqnsptx5382 [place] [address]Dr. Yimarcial Rocha BCIDHD1 ANTIMICROBIAL RESISTANCE GENES [facility] Comment on above: Performed By: #### B CID2 ####[facility] Kefpijhart5[address] [place], [place] [address]Dr. Yimarcial Rocha BCIDHD2 SEE BELOW Normal [facility] Comment on above: Result Comment: Note : Antimicrobial resitance can occur via multiple mechanisms. A Not Detected result for the [employer] antomicrobial resistance gene assays does not indicate antimicrobial susceptibility. Subculturing is required for species identification and susceptibility testing of isolates. Performed By: #### B CID2 ####[facility] Itarzxpozt1771 [place] [address]Dr. Yimarcial Rocha BCIDHD3 Positive Normal [facility] Comment on above: Performed By: #### B CID2 ####[facility] Lnxintmscg9558 [place] [id number]. Yilan Rocha BCIDHD4 Negative Normal [facility] Comment on above: Performed By: #### B CID2 ####[facility] Shsjtsgdao8191 [place] [address]Dr. Yilan Rocha BCIDHD5 YEAST Normal [facility] Comment on above: Performed By: #### B CID2 ####[facility] Xybyvdutjg328[address] [place], [place] [address]Dr. Yilan Rocha Bottle Set: Set [address] [facility] Comment on above: Performed By: #### B CID2 ####[facility] Fwydngtgti4158 [place] [address]Dr. Ricardo Rocha Bottle: Aerobic Normal [facility] Comment on above: Performed By: #### B CID2 ####[facility] Sthxbhculf7392 [place] [address]Dr. Ricardo Rocha C. neoformans/gattii Not detected Normal NOT DETECTED [facility] Comment on above: Performed By: #### B CID2 ####[facility] Zsjtylwcle44[address] [place], [place] [address]Dr. Ricardo Rocha Lauren albicans Not detected Normal NOT DETECTED [facility] Comment on above: Performed By: #### B CID2 ####[facility] Slsktbksoh938466 [address] [place], [place] [address]Dr. Ricardo Rocha Lauren auris Not detected Normal NOT DETECTED [facility] Comment on above: Performed By: #### B CID2 ####[facility] Elvsfgvbcl020[address] [place], [place] [address]Dr. Ricardo Rocha Lauren glabrata Not detected Normal NOT DETECTED [facility] Comment on above: Performed By: #### B CID2 ####[facility] Ddmrpjwwsy77[address] [place], [place] [address]Dr. Ricardo Rocha Lauren Krusei Not detected Normal NOT DETECTED The [facility] Comment on above: Performed By: #### B CID2 ####[facility] Hedozrvyxv3045[address] [place], [place] [address]Dr. Ricardo Rocha Lauren Parapsilosis Not detected Normal NOT DETECTED [facility] Comment on above: Performed By: #### B CID2 ####[facility] Ewlsuddbwj646[address] [place], [place] [address]Dr. Ricardo Rocha Lauren Tropicalis Not detected Normal NOT DETECTED [facility] Comment on above: Performed By: #### B CID2 ####[facility] Mdylknoope5[address] [place], [place] [address]Dr. Ricardo Rocha CTX-M Resistant Gene Not Applicable Normal NOT DETECTE D [facility] Comment on above: Performed By: #### B CID2 ####[facility] Tntjpzbumg5130 [place] [address]Dr. Ricardo Rocha E. Cloacae complex Not detected Normal NOT DETECTED [facility] Comment on above: Performed By: #### B CID2 ####[facility] Ggrmqgwrxf7989 [place] [address]Dr. Ricardo Rocha E. faecalis Not detected Normal NOT DETECTED [facility] Comment on above: Performed By: #### B CID2 ####[facility] Ijgdtmqopm4434[address] [place], [place] [address]Dr. Ricardo Rocha E. faecium Not detected Normal NOT DETECTED The [facility] Comment on above: Performed By: #### B CID2 ####[facility] Okbvbvmctt3374[address] [place], [place] [address]Dr. Nanomarcial Rocha Enterobacteriaceae Not detected Normal NOT DETECTED [facility] Comment on above: Performed By: #### B CID2 ####[facility] Xaxxyzykqm0911[address] [place], [place] [address]Dr. Ricardo Rocha Escherichia coli Not detected Normal NOT DETECTED [facility] Comment on above: Performed By: #### B CID2 ####[facility] Jwjvpsgscc8468[address] [place], [place] [address]Dr. Ricardo Rocha H. influenzae Not detected Normal NOT DETECTED [facility] Comment on above: Performed By: #### B CID2 ####[facility] Ptgomtbsak5707[address] [place], [place] [address]Dr. Ricardo Rocha IMP Resistant Gene Not Applicable Normal NOT DETECTED [facility] Comment on above: Performed By: #### B CID2 ####[facility] Eewpvngbhw9278[address] [place], [place] [address]Dr. Nanomarcial Rocha K. oxytoca Not detected Normal NOT DETECTED [facility] Comment on above: Performed By: #### B CID2 ####[facility] Ldtiyxdpuz8225[address] [place], [place] [address]Dr. Ricardo Rocha K. pneumoniae Not detected Normal NOT DETECTED [facility] Comment on above: Performed By: #### B CID2 ####[facility] Doxodeamut1652 [place] [address]Dr. Ricardo Rocha Klebsiella aerogenes Not detected Normal NOT DETECTED [facility] Comment on above: Performed By: #### B CID2 ####[facility] Jskbqfrrhu827[address] [place], [place] [address]Dr. Ricardo Rocha KPC Resistant Gene Not Applicable Normal NOT DETECTED [facility] Comment on above: Performed By: #### B CID2 ####[facility] Xksainebjt4211 [place] [address]Dr. Ricardo Rocha List. monocytogenes Not detected Normal NOT DETECTED [facility] Comment on above: Performed By: #### B CID2 ####[facility] Vabemrrouy5088[address] [place], [place] [address]Dr. Ricardo Rocha Mcr-1 Resistant Gene Not Applicable Normal NOT DETECTE D [facility] Comment on above: Performed By: #### B CID2 ####[facility] Doqsezqcnq7909[address] [place], [place] [address]Dr. Ricardo Rocha mecA/C Not Applicable Normal NOT DETECTED [facility] Comment on above: Performed By: #### B CID2 ####[facility] Ferulajojz559[address] [place], [place] [address]Dr. Ricardo Rocha mecA/C MREJ Detected Abnormal NOT DETECTED [facility] Comment on above: Performed By: #### B CID2 ####[facility] Ttklxavmdn2616[address] [place], [place] [address]Dr. Ricardo Rocha N. meningitidis Not detected Normal NOT DETECTED [facility] Comment on above: Performed By: #### B CID2 ####[facility] Fhsfzwvlzx509[address] [place], [place] [address]Dr. Ricardo Rocha NDM Resistant Gene Not Applicable Normal NOT DETECTED [facility] Comment on above: Performed By: #### B CID2 ####[facility] Bjyckecgvb4626[address] [place], [place] [address]Dr. Ricardo Rocha Oxa-48-like Not Applicable Normal NOT DETECTED [facility] Comment on above: Performed By: #### B CID2 ####[facility] Bheqyeqjbs59[address] [place], [place] [address]Dr. Ricardo Rocha Proteus Not detected Normal NOT DETECTED [facility] Comment on above: Performed By: #### B CID2 ####[facility] Nxtmlouvvw56216[address] [place], [place] [address]Dr. Ricardo Rocha Pseud. aeruginosa Not detected Normal NOT DETECTED [facility] Comment on above: Performed By: #### B CID2 ####[facility] Yhdkqzpvhc235[address] [place], [place] [address]Dr. Ricardo Rocha S. maltophilia Not detected Normal NOT DETECTED The [facility] Comment on above: Performed By: #### B CID2 ####[facility] Emuxdmssqn6025[address] [place], [place] [address]Dr. Ricardo Rocha Salmonella Not detected Normal NOT DETECTED [facility] Comment on above: Performed By: #### B CID2 ####[facility] Wjtunfpfgh137[address] [place], [place] [address]Dr. Ricardo Rocha Seratia marcescens Not detected Normal NOT DETECTED [facility] Comment on above: Performed By: #### B CID2 ####[facility] Tjunsadnje5990[address] [place], [place] [address]Dr. Ricardo Rocha Site: LEFT AC IV START Normal [facility] Comment on above: Performed By: #### B CID2 ####[facility] Kzkqfovgox80[address] [place], [place] [address]Dr. Ricardo Rocha Staph. aureus Detected Critically abnormal NOT DETECTED [facility] Comment on above: Performed By: #### B CID2 ####[facility] Fdddgazwkj2230[address] [place], [place] [address]Dr. Ricardo Rocha Staph. epidermidis Not detected Normal NOT DETECTED [facility] Comment on above: Performed By: #### B CID2 ####[facility] Xdbtncuior0117[address] [place], [place] [address]Dr. Ricardo Rocha Staph. lugdunensis Not detected Normal NOT DETECTED [facility] Comment on above: Performed By: #### B CID2 ####[facility] Gpehofstqy28[address] [place], [place] [address]Dr. Ricardo Rocha Staphylococcus Detected Critically abnormal NOT DETECTED [facility] Comment on above: Performed By: #### B CID2 ####[facility] Soykexqcvi0478[address] [place], [place] [address]Dr. Ricardo Rocha Strep. agalactiae Not detected Normal NOT DETECTED [facility] Comment on above: Performed By: #### B CID2 ####[facility] Mnkzhnzxil399[address] [place], [place] [address]Dr. Ricardo Rocha Strep. pneumoniae Not detected Normal NOT DETECTED [facility] Comment on above: Performed By: #### B CID2 ####[facility] Lqaozyoyst9904[address] [place], [place] [address]Dr. Ricardo Rocha Strep. pyogenes Not detected Normal NOT DETECTED [facility] Comment on above: Performed By: #### B CID2 ####[facility] Ooyhkhongp423[address] [place], [place] [address]Dr. Ricardo Rocha Streptococcus Not detected Normal NOT DETECTED [facility] Comment on above: Performed By: #### B CID2 ####[facility] Owgrodymnx887[address] [place], [place] [address]Dr. Ricardo Rocha Layne/B Resist. Gene Not Applicable Normal NOT DETECTED [facility] Comment on above: Performed By: #### B CID2 ####[facility] Xorkoubbua7939[address] [place], [place] [address]Dr. Ricardo Rocha VIM Resistant Gene Not Applicable Normal NOT DETECTED [facility] Comment on above: Performed By: #### B CID2 ####[facility] Kicgrfpelg0617[address] [place], [place] [address]Dr. Nanomarcial Rocha [facility] 02 MODE ROOM AIR Normal [facility] Comment on above: Performed By: #### A BG ####[facility] Yypkfchtry037[address] [place], [place] [address]Dr. Ricardo Rocha ALLENS TEST Positive Normal [facility] Comment on above: Performed By: #### A BG ####[facility] Wvgkueewib406[address] [place], [place] [address]Dr. Ricardo Rocha Base excess Calc (Bld) [Moles/Vol] -4.5000 mmol/L Critically low -2.0-2.[address] [facility] Comment on above: Performed By: #### A BG ####[facility] Nzbwwhiexn110[address] [place] [address]Dr. Ricardo Rocha BIPAP PRESSURE Normal [facility] Comment on above: Performed By: #### A BG ####[facility] Qdlolhjmzt9720 [place] [address]Dr. Ricardo Rocha CPAP Normal [facility] Comment on above: Performed By: #### A BG ####St. [facility] [address]tuqahl[address] [place], [place] [address]Dr. Ricardo Rocha FIO2 Normal [facility] Comment on above: Performed By: #### A BG ####[facility] Ynpniwyryi[address] [place], [place] [address]Dr. Ricardo Rocha HCO3 (Bld) [Moles/Vol] 21.4 mmol/L Critically low 22.0-26.[address] [facility] Comment on above: Performed By: #### A BG ####[facility] Bkubmfmmqe[address] [place], [place] [address]Dr. Ricardo Rocha LPM Normal [facility] Comment on above: Performed By: #### A BG ####[facility] Htabxnslip3[address] [place], [place] [address]Dr. Ricardo Rocha MINUTE VOLUME Normal [facility] Comment on above: Performed By: #### A BG ####[facility] Kgicqwuwpm[address] [place], [place] [address]Dr. Ricardo Rocha Oxygen (Bld) [Partial pressure] 66.4 mm[Hg] Critically low 80.0-100.[address] [facility] Comment on above: Performed By: #### A BG ####[facility] Qupnodkwuo040[address] [place], [place] [address]Dr. Ricardo Rocha Oxygen saturation in Blood 94.6 % Critically low 95.0-100.[address] [facility] Comment on above: Performed By: #### A BG ####[facility] Bqkzajsrsv[address] [place], [place] [address]Dr. Ricardo Rocha PCO2 29.4 mmHg Critically low 35.0-45.0 [facility] Comment on above: Performed By: #### A BG ####[facility] Yoioypfvxj4764 [place] [address]Dr. Ricardo Rocha PEEP Normal [facility] Comment on above: Performed By: #### A BG ####[facility] Lcebnpfqcj1336 [place] [address]Dr. Ricardo Rocha pH (Bld) 7.436 [pH] Normal 7.350-7.450 [facility] Comment on above: Performed By: #### A BG ####[facility] Wxafhemkcp9755 [place] [address]Dr. Ricardo Rocha PIP Rufus [facility] Comment on above: Performed By: #### A BG ####[facility] Ugvwbwebph83[address] [place], [place] [address]Dr. Ricardo Rocha PS [facility] Comment on above: Performed By: #### A BG ####[facility] Asjjuxcfon96[address] [place], [place] [address]Dr. Ricardo Rocha PUNCTURE SITE LR Normal [facility] Comment on above: Performed By: #### A BG ####[facility] Ujsksinhua[address] [place], [place] [address]Dr. Ricardo Rocha RATE Rufus [facility] Comment on above: Performed By: #### A BG ####[facility] Cldnrrhyvk[address] [place], [place] [address]Dr. Ricardo Rocha VENT MODE [facility] Comment on above: Performed By: #### A BG ####[facility] Swkjtvixyy8497 [place] [address]Dr. Ricardo Rocha [place] [facility] Comment on above: Performed By: #### A BG ####[facility] Txwxklpnmm28[address] [place], [place] [address]Dr. Ricardo Rocha CBC W MANUAL DIFFon 06-10-20 22 ATYPICAL LYMPH # Normal [facility] Comment on above: Performed By: #### C BCMAN ####[facility] Buuycfxban2757 [place] [address]Dr. Ricardo Rocha ATYPICAL LYMPH % Normal [facility] Comment on above: Performed By: #### C BCMAN ####[facility] Gwuaapfzcp6648 [place] [phone]. Ricardo Rocha BAND # 1.3 103/ul Critically high 0.0-0.3 [facility] Comment on above: Performed By: #### C BCMAN ####[facility] Rspabikxed8139 [place] [address]Dr. Ricardo Rocha BAND % 12 % Critically high 0-5 [facility] Comment on above: Performed By: #### C BCMAN ####[facility] Pficmebzta9062 [place] [address]Dr. Ricardo Rocha BASOM # 0.00 103/ul Normal 0.00-0.[address] [facility] Comment on above: Performed By: #### C BCRED ####[facility] Ibscmclwkm4013 [place] [address]Dr. Ricardo Rocha BASOM % 0.0 % Critically low 0.2-2.0 [facility] Comment on above: Performed By: #### C BCRED ####[facility] Yxewpacsmg1480 [place] [address]Dr. Ricardo Rocha BLAST # Normal [facility] Comment on above: Performed By: #### C BCRED ####[facility] Gygexelvbb2176 [place] [id number]. Ricardo Rocha BLAST % Normal [facility] Comment on above: Performed By: #### C BCRED ####[facility] Bsqcmvityf6490 [place] [address]Dr. Ricardo Rocha CORRECTED WBC Normal 4.0-11.0 [facility] Comment on above: Performed By: #### C BCMAN ####[facility] Qguudlgerx1237 [place] [address]Dr. Ricardo Rocha EOS # 0.00 103/ul Normal 0.00-0.[address] [facility] Comment on above: Performed By: #### C BCRED ####[facility] Mophhqwjfy3889 [place] [address]DrIrina Rocha EOS% 0.0 % Critically low 0.9-7.0 [facility] Comment on above: Performed By: #### C BCRED ####[facility] Vyzfamnloq7822 [place], [place] [address]PiIrina Rocha HCT 35.5 % Critically low 36.0-48.0 [facility] Comment on above: Performed By: #### C BCRED ####[facility] Ddmnbwnidk3795 [place], [place] [address]RqIrina Rocha HGB 11.4 g/dl Critically low 12.0-16.0 [facility] Comment on above: Performed By: #### C DWAINE ####[facility] Ldmtzgtlad9627 [place] [phone] Rocha HYPERSEG NEUT 3+ Normal [facility] Comment on above: Performed By: #### C DWAINE ####[facility] Ztgxomkhyo3267 [place] [phone] Rocha LYMPHM # 0.21 103/ul Critically low 1.20-3.80 [facility] Comment on above: Performed By: #### C DWAINE ####[facility] Thqllowgpb8522 [place] [phone] Rocha LYMPHM% 2.0 % Critically low 20.5-60.0 [facility] Comment on above: Performed By: #### C DWAINE ####[facility] Nyddpwlikc7034 [place] [phone]. Ricardo Rocha MCH 25.3 pg Critically low 26.7-34.0 [facility] Comment on above: Performed By: #### C DWAINE ####[facility] Pgsffaxdaa7413 [place] [phone] Rocha MCHC 32.1 g/dl Normal 29.9-35.[address] [facility] Comment on above: Performed By: #### C DWAINE ####[facility] Yysejuzjxe0177 [place], [place] [address]RmIrina Rocha MCV 78.9 fL Critically low 81.0-99.0 [facility] Comment on above: Performed By: #### C DWAINE ####[facility] Gcdzyxogep7297 [place] [phone]. Ricardo Rocha METAMYELOCYTE # Normal [facility] Comment on above: Performed By: #### C DWAINE ####[facility] Msjdtqpzyd7471 [place] [phone]. Ricardo Rocha METAMYELOCYTE % Normal [facility] Comment on above: Performed By: #### C DWAINE ####[facility] Nnsxqvgjip4254 [place] [phone]. Ricardo Rocha MONOM# 0.32 103/ul Normal 0.30-0.80 [facility] Comment on above: Performed By: #### C DWAINE ####[facility] Ruckuodbgw6573 [place] [phone]. Ricardo Rocha MONOM% 3.0 % Normal 1.7-12.0 [facility] Comment on above: Performed By: #### C DWAINE ####[facility] [address]ybfvcmnys[address] [place], [place] [address]Dr. Ricardo Rocha MPV 10.9 fL Normal 9.5-13.5 [facility] Comment on above: Performed By: #### C DWAINE ####[facility] Cvrwenzogw[address] [place], [place] [address]Dr. Ricardo Rocha MYELOCYTE # Normal [facility] Comment on above: Performed By: #### C DWAINE ####[facility] Xfewjbtvre3351 [place] [phone]. Ricardo Rocha MYELOCYTE % Normal [facility] Comment on above: Performed By: #### C DWAINE ####[facility] Tduoyvbwhb6434 [place] [phone]. Ricardo Rocha NRBC Normal [facility] Comment on above: Performed By: #### C DWAINE ####[facility] Qstzdzrnpt3997 [place] [phone]. Ricardo Rocha PLT 180 103/ul Normal 150-[address] [facility] Comment on above: Performed By: #### C DWAINE ####[facility] Yjpgqfwonn1390 [place], [place] [address]Vn. Ricardo Rocha RBC 4.50 106/ul Normal 4.20-5.[address] [facility] Comment on above: Performed By: #### C DWAINE ####[facility] Uozbcoftwr0347 [place], [place] [address]Qp. Ricardo Rocha RDW 12.8 % Normal 11.0-15.0 [facility] Comment on above: Performed By: #### C DWAINE ####[facility] Decpjspufj3428 [place] [phone]. Ricardo Rocha SEG # 8.71 103/ul Critically high 1.40-6.50 [facility] Comment on above: Performed By: #### C DWAINE ####[facility] Bpcgryrlzs9117 [place] [phone]. Ricardo Rocha SEG % 83.0 % Critically high 43.0-75.0 [facility] Comment on above: Performed By: #### C DWAINE ####[facility] Brioleogje7129 [place] [phone]. Ricardo Rocha TOXIC GRANULATION 2+ Normal [facility] Comment on above: Performed By: #### C DWAINE ####[facility] Cqopztnwer7052 [place] [phone]. Ricardo Rocha WBC 10.5 103/ul Normal 4.0-11.0 [facility] Comment on above: Performed By: #### C DWAINE ####[facility] Ikygqqtqmy9971 [place] [phone]. Ricardo Rocha CULTURE BLOODon 06-10-2022 Microscopic examination of blood, culture Culture Observations: Positive blood culture. Pediatric bottle. Culture Observations: Please refer to for susceptibility testing. Isolate 1 Staphylococcus aureus Growth of Normal [facility] Comment on above: Performed By: #### B LDCX2 ####[facility] Xfwxaibded4366 [place] [phone]. Ricardo Rocha LACTATE/LACTIC ACIDon 2021 Lactate [Moles/Vol] 1.9 mmol/L Normal 0.4-1.9 [facility] Comment on above: Performed By: #### L ACT ####[facility] Nmjpyerohj6697 [place] [address]Dr. Ricardo Rocha LIPASEon 06-10-2022 Lipase [Catalytic activity/Vol] 164.0 U/L Normal 73.0-393.0 [facility] Comment on above: Performed By: #### H STROPN, LIPA, CMP, TSH ####[facility] Nugctiyule0138 [place] [address]Dr. Ricardo Rocha POINT OF CARE GLUCOSEon 05-22 Glucose [Mass/Vol] 583 mg/dL Critically high 74-106 [facility] Comment on above: Result Comment: Resu lt Not Confirmed Performed By: #### P OCGLUC ####[facility] Bfehayibki4829 [place] [address]Dr. Ricardo Rocha PROF 14(COMP METB)on 022 Albumin [Mass/Vol] 3.0 g/dL Critically low 3.4-5.0 [facility] Comment on above: Performed By: #### H STROPN, LIPA, CMP, TSH ####[facility] Lvmrxflxzh5284 [place] [address]Dr. Ricardo Rocha Albumin/Globulin [Mass ratio] 0.5 {ratio} Normal [facility] Comment on above: Performed By: #### H STROPN, LIPA, CMP, TSH ####[facility] Rfjjolbzua2086 [place] [address]Dr. Ricardo Rocha ALP [Catalytic activity/Vol] 116 U/L Normal 46-116 [facility] Comment on above: Performed By: #### H STROPN, LIPA, CMP, TSH ####[facility] Brwbvnhnbi1694 [place] [address]Dr. Ricardo Rocha ALT [Catalytic activity/Vol] 15 U/L Normal 14-59 [facility] Comment on above: Performed By: #### H STROPN, LIPA, CMP, TSH ####[facility] Yxhfeqvkof0609 [place] [address]Dr. Ricardo Rocha Anion gap [Moles/Vol] 15.7 mmol/L Normal [facility] Comment on above: Performed By: #### H STROPN, LIPA, CMP, TSH ####[facility] Zlbdgdsjbz7356 [place] [address]Dr. Ricardo Rocha AST [Catalytic activity/Vol] 16 U/L Normal 15-[address] [facility] Comment on above: Performed By: #### H STROPN, LIPA, CMP, TSH ####[facility] Ovpdiephpg1948 [place] [address]Dr. Ricardo Rocha Bilirubin [Mass/Vol] 0.5 mg/dL Normal 0.2-1.0 [facility] Comment on above: Performed By: #### H STROPN, LIPA, CMP, TSH ####[facility] Bmdxqbalin2849 [place] [address]Dr. Ricardo Rocha Calcium [Mass/Vol] 9.4 mg/dL Normal 8.5-10.1 [facility] Comment on above: Performed By: #### H STROPN, LIPA, CMP, TSH ####[facility] Gmhtusxoma0754 [place] [address]Dr. Ricardo Rocha Chloride [Moles/Vol] 95 mmol/L Critically low 98-[address] [facility] Comment on above: Performed By: #### H STROPN, LIPA, CMP, TSH ####[facility] Cvyolgygpc4062 [place] [address]Dr. Ricardo Rocha CO2 [Moles/Vol] 22.1 mmol/L Normal 21.0-32.0 [facility] Comment on above: Performed By: #### H STROPN, LIPA, CMP, TSH ####[facility] Ywdlmpznxu6249 [place] [address]Dr. Ricardo Rocha Creatinine [Mass/Vol] 2.23 mg/dL Critically high 0.55-1.02 [facility] Comment on above: Performed By: #### H STROPN, LIPA, CMP, TSH ####[facility] Djlqywdsmu5639 [place] [address]Dr. Ricardo Rocha EGFR-AF ANDORRAN 27 mL/min/1.73m2 Critically low >=60 [facility] Comment on above: Performed By: #### H STROPN, LIPA, CMP, TSH ####[facility] Miwrjsoajz2799 [place] [address]Dr. Ricardo Rocha EGFR-NON AF ANDORRAN 22 mL/min/1.73m2 Critically low >=60 [facility] Comment on above: Performed By: #### H STROPN, LIPA, CMP, TSH ####[facility] Vsntvnetll3077 [place] [address]Dr. Ricardo Rocha Globulin (S) [Mass/Vol] 6.5 g/dL Normal [facility] Comment on above: Performed By: #### H STROPN, LIPA, CMP, TSH ####[facility] Vpxsvzgpge5071 [place] [address]Dr. Ricardo Rocha Glucose [Mass/Vol] 593 mg/dL Critically high 74-106 [facility] Comment on above: Performed By: #### H STROPN, LIPA, CMP, TSH ####[facility] Pvwrlihtra4928 [place] [address]Dr. Ricardo Rocha Potassium [Moles/Vol] 3.8 mmol/L Normal 3.5-5.1 [facility] Comment on above: Performed By: #### H STROPN, LIPA, CMP, TSH ####[facility] Ihgaliafss1305 [place] [address]Dr. Ricardo Rocha Protein [Mass/Vol] 9.5 g/dL Critically high 6.4-8.2 [facility] Comment on above: Performed By: #### H STROPN, LIPA, CMP, TSH ####[facility] Lvrjftxomq9051 [place] [address]Dr. Ricardo Rocha Sodium [Moles/Vol] 129 mmol/L Critically low 136-145 [facility] Comment on above: Performed By: #### H STROPN, LIPA, CMP, TSH ####[facility] Fwwqhhhvin9449 [place] [address]Dr. Ricardo Rocha Urea nitrogen [Mass/Vol] 40.0 mg/dL Critically high 7.0-18.[address] [facility] Comment on above: Performed By: #### H STROPN, LIPA, CMP, TSH ####[facility] Mxakbflkyh0921 [place] [address]Dr. Ricardo Rocha Urea nitrogen/Creatinine [Mass ratio] 17.9 mg/mg Normal [facility] Comment on above: Performed By: #### H STROPN, LIPA, CMP, TSH ####[facility] Jkyrswzhmd8150 [place] [address]Dr. Ricardo Rocha PROTIMEon 06-10-2022 INR Coag (PPP) [Relative time] 1.00 {INR} Normal [facility] Comment on above: Performed By: #### P TT, PT ####[facility] Nspkauyunp8601 [place] [address]Dr. Ricardo Rocha INR GUIDELINES SEE BELOW Normal [facility] Comment on above: Result Comment: AMBROSIO RED INR: 2.0 - 3.0 CONDITIONS NOT LISTED BELOW 2.5 - 3.5 FOR PROSTHETIC HEART VALVE REPLACEMENT 2.5 - 3.5 RECURRENT THROMBOSIS Performed By: #### P TT, PT ####[facility] [address]xdgkygfjc[address] [place], [place] [address]Dr. Ricardo Rocha PT Coag (PPP) [Time] 10.8 s Normal 9.0-11.[address] [facility] Comment on above: Performed By: #### P TT, PT ####[facility] Ivjkuukspg44[address] [place], [place] [address]Dr. Ricardo Rocha PTTon 06-10-2022 aPTT Coag (Bld) [Time] 31.7 s Normal 22.3-36.[address] [facility] Comment on above: Performed By: #### P TT, PT ####[facility] Plunnaictn[address] [place], [place] [address]Dr. Ricardo Rocha TROPONIN, HIGH SENSITIVITYon 06-10-2022 HSTROP 30.9 pg/mL Normal 4.0-51.[address] [facility] Comment on above: Result Comment: CUT- OFF POINTS HAVE BEEN ESTABLISHED BASED ON THE FOURTH UNIVERSAL DEFINITIONS OF MYOCARDIALINFARCTION. THE UPPER REFERENCE LIMIT (URL) OF TROPONIN, DEFINED THE 99TH PERCENTILE OFcTnI DISTRIBUTION IN A REFERENCE POPULATION, HAS BEEN CONFIRMED THE DECISION THRESHOLDFOR SD DIAGNOSIS. Performed By: #### H ANGELINE, SYLWIA, CMP, TSH ####[facility] Ansjbuvkbx0969 [place] [address]Dr. Ricardo Rocha TSHon 06-10-2022 TSH 0.147 uIU/mL Critically low 0.358-3.740 [facility] Comment on above: Performed By: #### H ANGELINE, SYLWIA, CMP, TSH ####[facility] Zdqixgfsff4783 [place] [address]Dr. Ricardo Rocha XR FOOT ALINE MIN 3 VIEWSon XR FOOT ALINE MIN [address] [facility] XR HAND RT MIN 3Von 06-02-20 XR HAND RT MIN 3V Normal [facility] CULTURE WOUNDon 05-15-2022 CULTURE WOUND Normal [facility] Comment on above: Performed By: #### W OUNDCX ####[facility] Liayiewfgf[address] [place], [place] [address]Dr. Ricardo Rocha CBC AUTO DIFFon 2022 BASO # 0.0 103/ul Normal 0.0-0.[address] [facility] Comment on above: Performed By: #### C BC ####[facility] Ugjhxjwyzr668[address] [place], [place] [address]Dr. Ricardo Rocha Basophils/100 WBC (Bld) 0.7 % Normal 0.2-2.[address] [facility] Comment on above: Performed By: #### C BC ####[facility] Saeqwkpxbt3089 [place] [address]Dr. Ricardo Rocha EO # 0.1 103/ul Normal 0.0-0.[address] [facility] Comment on above: Performed By: #### C BC ####[facility] Rzjexsetas7371 [place] [address]Dr. Ricardo Rocha Eosinophils/100 WBC (Bld) 2.1 % Normal 0.9-7.[address] [facility] Comment on above: Performed By: #### C BC ####[facility] Gubxvzzseo7276 [place] [address]Dr. Ricardo Rocha Erythrocyte distribution width (RBC) [Ratio] 13.2 % Normal 11.0-15.0 [facility] Comment on above: Performed By: #### C BC ####[facility] Icoqttrdsd648[address] [place], [place] [address]Dr. Ricardo Rocha Hematocrit (Bld) [Volume fraction] 36.6 % Normal 36.0-48.[address] [facility] Comment on above: Performed By: #### C BC ####[facility] Wmpdhlrrpc340[address] [place], [place] [address]Dr. Ricardo Rocha Hemoglobin (Bld) [Mass/Vol] 11.9 g/dL Critically low 12.0-16.0 [facility] Comment on above: Performed By: #### C BC ####[facility] Dwjbvhwgxz7[address] [place], [place] [address]Dr. Ricardo Rocha IG # 0.03 10e3/ul Normal 0.00-0.03 [facility] Comment on above: Performed By: #### C BC ####[facility] Eogqqygyca1007[address] [place], [place] [address]Dr. Ricardo Rocha IG % 0.5 % Normal 0.0-0.5 [facility] Comment on above: Performed By: #### C BC ####[facility] Sakuqmruni28[address] [place], [place] [address]Dr. Ricardo Rocha LYMPH # 2.1 103/ul Normal 1.2-3.[address] [facility] Comment on above: Performed By: #### C BC ####[facility] [address]sgpdybclp974[address] [place], [place] [address]Dr. Ricardo Rocha Lymphocytes/100 WBC (Bld) 33.8 % Normal 20.5-60.[address] [facility] Comment on above: Performed By: #### C BC ####[facility] Aebeafkhht98[address] [place], [place] [address]Dr. Ricardo Rocha MANUAL DIFF REQ NO Normal [facility] Comment on above: Performed By: #### C BC ####[facility] Ioeleuoygq4454 [place] [address]Dr. Ricardo Rocha MCH (RBC) [Entitic mass] 25.7 pg Critically low 26.7-34.[address] [facility] Comment on above: Performed By: #### C BC ####[facility] Xrumnfxliy7028 [place] [address]Dr. Ricardo Rocha MCHC (RBC) [Mass/Vol] 32.5 g/dL Normal 29.9-35.[address] [facility] Comment on above: Performed By: #### C BC ####[facility] Pimpdwoowl70[address] [place], [place] [address]Dr. Ricardo Rocha MCV (RBC) [Entitic vol] 79.0 fL Critically low 81.0-99.[address] [facility] Comment on above: Performed By: #### C BC ####[facility] Clwbbmyeoh01[address] [place], [place] [address]Dr. Ricardo Rocha MONO # 0.4 103/ul Normal 0.3-0.[address] [facility] Comment on above: Performed By: #### C BC ####[facility] Pvxbevxdki27[address] [place], [place] [address]Dr. Ricardo Rocha Monocytes/100 WBC (Bld) 6.2 % Normal 1.7-12.[address] [facility] Comment on above: Performed By: #### C BC ####[facility] Vfqehwgwfi39[address] [place], [place] [address]Dr. Ricardo Rocha NEUT # 3.5 103/ul Normal 1.4-6.[address] [facility] Comment on above: Performed By: #### C BC ####[facility] Mnkqljptow[address] [place], [place] [address]Dr. Ricardo Aj Neutrophils/100 WBC (Bld) 56.7 % Normal 43.0-75.[address] [facility] Comment on above: Performed By: #### C BC ####[facility] Vfsjctpuxp055[address] [place], [place] [address]Dr. Ricardo Rocha Platelet mean volume (Bld) [Entitic vol] 10.9 fL Normal 9.5-13.[address] [facility] Comment on above: Performed By: #### C BC ####[facility] Rcptzrnken1732 [place] [id number]. Ricardo Rocha PLT 241 103/ul Normal 150-[address] [facility] Comment on above: Performed By: #### C BC ####[facility] Qevakhnzva0916 [place] [phone]. Ricardo Rocha RBC 4.63 106/ul Normal 4.20-5.40 [facility] Comment on above: Performed By: #### C BC ####[facility] Lsxrbbclfe8955 [place] [phone]. Ricardo Rocha WBC 6.1 103/ul Normal 4.0-11.[address] [facility] Comment on above: Performed By: #### C BC ####[facility] Fqgjjslbrq[address] [place], [place] [address]Dr. Nanomarcial Rocha PROF CHEM 8 (BAS METB)on Anion gap [Moles/Vol] 11.8 mmol/L Normal [facility] Comment on above: Performed By: #### B MP ####[facility] Ssckpodvow3865 [place] [address]Dr. Ricardo Aj Calcium [Mass/Vol] 9.2 mg/dL Normal 8.5-10.1 [facility] Comment on above: Performed By: #### B MP ####[facility] Xwsefinrde[address] [place], [place] [address]Dr. Ricardo Aj Chloride [Moles/Vol] 99 mmol/L Normal 98-[address] [facility] Comment on above: Performed By: #### B MP ####[facility] Wrgvbtlnuk1416 [place] [phone]. Ricardo Rocha CO2 [Moles/Vol] 24.7 mmol/L Normal 21.0-32.0 [facility] Comment on above: Performed By: #### B MP ####[facility] Ckjmnkoxry[address] [place], [place] [address]Dr. Ricarod Aj Creatinine [Mass/Vol] 1.48 mg/dL Critically high 0.55-1.02 [facility] Comment on above: Performed By: #### B MP ####[facility] Mgpxmmzvsl1193 [place] [phone]. Nanomarcial Aj EGFR-AF ANDORRAN 43 mL/min/1.73m2 Critically low >=60 [facility] Comment on above: Performed By: #### B MP ####[facility] Vtxgksoftn7607 [place] [phone]. Nanomarcial Aj EGFR-NON AF ANDORRAN 36 mL/min/1.73m2 Critically low >=60 [facility] Comment on above: Performed By: #### B MP ####[facility] Zpmteguslx4775 [place] [address]Dr. Ricardo Rocha Glucose [Mass/Vol] 431 mg/dL Critically high 74-106 [facility] Comment on above: Performed By: #### B MP ####[facility] Ruglqoptbj9154 [place] [address]Dr. Ricardo Rocha Potassium [Moles/Vol] 4.5 mmol/L Normal 3.5-5.1 [facility] Comment on above: Performed By: #### B MP ####[facility] Miyiccklkt2935 [place] [address]Dr. Ricardo Rocha Sodium [Moles/Vol] 131 mmol/L Critically low 136-145 [facility] Comment on above: Performed By: #### B MP ####[facility] Dwnfvllpox3498 [place] [address]Dr. Ricardo Rocha Urea nitrogen [Mass/Vol] 23.0 mg/dL Critically high 7.0-18.0 [facility] Comment on above: Performed By: #### B MP ####[facility] Qfajvzthfh0767 [place] [address]Dr. Ricardo Rocha Urea nitrogen/Creatinine [Mass ratio] 15.5 mg/mg Normal [facility] Comment on above: Performed By: #### B MP ####[facility] Pwfaqnzpur5227 [place] [address]Dr. Ricardo Rocha XR TOES ALINE MIN 2 Von 2021 XR TOES ALINE MIN 2 V Normal [facility] Center 01-21-2021 [facility] HNO ID: [id number] Author: RT Parveen(R) Service: ? Author Type: Winemaker Type: Allied Health Filed: 01/20/2021 10:30 PM [...] Parveen(R) January 20, 2021 10:29 PM Normal [facility] Basic Metabolic Panlon 01-21 Anion gap [Moles/Vol] 7 mmol/L Low 9-18 [facility] Calcium [Mass/Vol] 8.8 mg/dL Normal 8.5-10.2 [facility]ital Chloride [Moles/Vol] 99 mmol/L Normal 97-105 [facility] CO2 [Moles/Vol] 25 mmol/L Normal 22-30 [facility] Creatinine [Mass/Vol] 1.51 mg/dL High 0.58-0.96 [facility] eGFR- Amer. [address] [facility] ospital eGFR-All Other Races 35 . Normal [facility] Comment on above: Result Comment: [...] GFR. Glucose [Mass/Vol] 141 mg/dL High 74-99 [facility] Comment on above: Result Comment: The [place] [employer] (ADA) provides guidance for cutoff [...] Standards of Medical Care in Diabetes 2016, [place] [employer]. Diabetes Care. 2016.39(Suppl 1). Potassium [Moles/Vol] 4.7 mmol/L Normal 3.7-5.1 [facility] Sodium [Moles/Vol] 131 mmol/L Low 136-144 [facility] Urea nitrogen [Mass/Vol] 42 mg/dL High 7-21 [facility] CBCon 01-21-2021 Absolute nRBC <0.01 Normal <0.01 [facility] Erythrocyte distribution width (RBC) [Ratio] 13.1 % Normal 11.5-15.0 [facility] Hematocrit (Bld) [Volume fraction] 30.0 % Low 36.0-46.0 [facility] Hemoglobin (Bld) [Mass/Vol] 9.5 g/dL Low 11.5-15.5 [facility] MCH 24.4 pG Low 26.0-34.0 [facility] MCHC (RBC) [Mass/Vol] 31.7 g/dL Normal 30.5-36.0 [facility] MCV (RBC) [Entitic vol] 77.1 fL Low 80.0-100.0 [facility] Platelet mean volume (Bld) [Entitic vol] 11.1 fL Normal 9.0-12.7 [facility] Platelets (Bld) [#/Vol] 358 10*3/uL Normal 150-400 [facility] RBC (Bld) [#/Vol] 3.89 10*6/uL Low 3.90-5.20 [facility] WBC (Bld) [#/Vol] 9.64 10*3/uL Normal 3.70-11.00 [facility] CNDSon 01-21-2021 CNDS HNO ID: [id number] Author: Inna Hansen DO Service: Hospital Medicine [...] Team: Attending Provider: Inna Hansen DO Physician Commercial Correspondent: Garrett Simon PA-C Consulting: Taurus Ballard MD [...] PCP: referred to a new PCP in [place]. Future Appointments Date Time Provider Department Center 01/29/2021 11:40 AM Taurus Ballard MD [facility] The patient's risk for 30-day readmission is determined using the following contributing factors: Pt variables contributing to increased readmission risk: 42 Most Recent (more content not included)... Normal [facility] MRI KIDNEY WO/W IVCONon 06-0 MRI KIDNEY WO/W IVCON * * *Final Report* * * DATE OF EXAM: Jan 20 2021 10:35PM [facility] 0721 - MRI KIDNEY WO/W IVCON / PROCEDURE REASON: Renal cyst * * * * Physician Interpretation * * * * EXAMINATION: MRI ABDOMEN WITHOUT AND WITH IV CONTRAST CLINICAL HISTORY: Renal mass characterization. TECHNIQUE: A renal MRI was performed on a MR system utilizing the torso phased-array coil. Pulse sequences included: axial precontrast T1 weighted in- and ygr-bi-anwlj, axial and coronal HASTE, axial DWI with [...] be communicated with the ordering provider via apomio staff message or phone message by Imaging Support Services within 2 business days of report finalization. Algorithms for management of incidental imaging findings can be found on the [facility] Intranet Sharepoint site at: [email or web address] Managing%20Incidental%2 0Findi ngs%20at%20Imaging/Form s/AllItems.aspx Granite Installer: GUILLE Transcribe Date/Time: Jan 21 2021 8:17A Dictated by : MALLORY AHN MD This examination was interpreted and the report reviewed and electronically signed by: MALLORY AHN MD on Jan 21 2021 8:49AM EST [id number] ACTIONABLE Invalid Interpretation Code [facility] Basic Metabolic Panlon 01-20 Anion gap [Moles/Vol] 11 mmol/L Normal 9-18 [facility] Calcium [Mass/Vol] 8.7 mg/dL Normal 8.5-10.2 [facility] Chloride [Moles/Vol] 97 mmol/L Normal 97-105 [facility] CO2 [Moles/Vol] 24 mmol/L Normal 22-30 [facility] Creatinine [Mass/Vol] 1.46 mg/dL High 0.58-0.96 [facility] eGFR- Amer. 44 Normal [facility] eGFR-All Other Races 36 . Normal [facility] Comment on above: Result Comment: [...] ospital Comment on above: Result Comment: The [place] Diabetes Association (ADA) provides guidance for cutoff [...] Standards of Medical Care in Diabetes 2016, [place] [employer]. Diabetes Care. 2016.39(Suppl 1). Potassium [Moles/Vol] 3.9 mmol/L Normal 3.7-5.1 [facility] Sodium [Moles/Vol] 132 mmol/L Low 136-144 [facility] Urea nitrogen [Mass/Vol] 53 mg/dL High 7-21 [facility] CBCon 01-20-2021 Absolute nRBC <0.01 Normal <0.01 [facility] Erythrocyte distribution width (RBC) [Ratio] 12.8 % Normal 11.5-15.0 [facility] Hematocrit (Bld) [Volume fraction] 27.7 % Low 36.0-46.0 [facility] Hemoglobin (Bld) [Mass/Vol] 8.9 g/dL Low 11.5-15.5 [facility] MCH 24.5 pG Low 26.0-34.0 [facility] MCHC (RBC) [Mass/Vol] 32.1 g/dL Normal 30.5-36.0 [facility] MCV (RBC) [Entitic vol] 76.3 fL Low 80.0-100.0 [facility] Platelet mean volume (Bld) [Entitic vol] 11.1 fL Normal 9.0-12.7 [facility] l Platelets (Bld) [#/Vol] 321 10*3/uL Normal 150-400 [facility] RBC (Bld) [#/Vol] 3.63 10*6/uL Low 3.90-5.20 [facility] WBC (Bld) [#/Vol] 11.05 10*3/uL High 3.70-11.00 [facility] CONSULT PROGon 01-20-2021 CONSULT PROG HNO ID: [id number] Author: Rajendra Cruz MD Service: Nephrology Author Type: Physician Type: Consult Progress Note Filed: 01/20/2021 1:44 PM Note Text: [facility] NEPHROLOGY CONSULT PROGRESS NOTE SERVICE DATE: January [...] DATE: January 20, 2021 1:43 PM PHONE: [phone] FOR AFTER HOUR CONCERNS BETWEEN 7PM - 7AM CONTACT ON-CALL NEPHROLOGY STAFF Normal [facility] THERAPY NTon 01-20-2021 THERAPY NT HNO ID: [id number] Author: Afia Radford, PT Service: Physical Therapy Author Type: Physical Therapist Type: Therapy (PT/OT/Speech/Resp) Filed: 01/20/2021 3:32 PM Note Text: Physical Therapy Treatment SERVICE DATE: 01/20/2021 SERVICE TIME: 1330 to 1353 ROOM: [place] [address] Recommended Discharge Disposition: Home PT Recommended Discharge [...] 0 Tub/Shower Type: tub shower Laundry: basement, [id number] Equipment Owned: Cane;Standard Walker Prior Functional Level: [...] Diagnosis: Reduced mobility-other Interventions Provided: Gait Training (84144);Therapeutic Exercise (91110) Therapeutic Exercise (24268) Treatment Minutes: 8 Pt performed in supine position: AP, QS, GS x 10 B LE, pt instructed to do every hour while awake on their own. 7 days a week, HS, hip ABD, SAQ, SLR 10-20 reps/ 2-3x/day/ 7 days/week Gait Training (75582) Treatment Minutes: 15 $ Gait Training (88286) Billed Units: 1 unit Training AND education [...] 2021 TIME: (more content not included)... Normal [facility] THERAPY NT HNO ID: [id number] Author: Heidy Wright, OT/L Service: Occupational Therapy Author Type: Occupational Therapist Type: Therapy (PT/OT/Speech/Resp) Filed: 01/20/2021 12:15 PM Note Text: Occupational Therapy Treatment SERVICE DATE: 01/20/2021 SERVICE TIME: 1155 to 1205 ROOM: [place] [address] Recommended Discharge Disposition: Home OT Recommended Discharge [...] See Comment (lives with 10 year old grandsabrina, ex-hus, ) Assistance Available: 24 Hour;Other: See Comment (grandson is done with school at home) Entry To Home: Stairs;Without Rail Number Of Stairs Into Home: 1 Number Of Stairs To Bed/Bath: 0 Tub/Shower Type: tub shower Laundry: basement, [id number] Equipment Owned: Cane;Standard Walker Prior Functional Level: [...] (generalized);General symptoms and signs-other Interventions Provided: Self Mcfp Management (71412) Self Mcfp Management (28998) Treatment Minutes: 10 $ Self Mcfp Management (77034) Billed Units: 1 unit Training AND education provided in: Benefits of in (more content not included)... Normal [facility] THERAPY NT HNO ID: [id number] Author: Heidy Wright OT/Broderick Service: Occupational Therapy Author Type: Occupational Therapist Type: Therapy (PT/OT/Speech/Resp) Filed: 01/20/2021 8:24 AM Note Text: OCCUPATIONAL THERAPY MISSED VISIT SERVICE DATE: 01/20/2021 SERVICE TIME: 819 to 08 ROOM: [place] [address] Attempted Treatment. Patient not seen due to Declined. Pt states, It's too early when OT attempted to work with her. Will re-attempt as schedule permits. SIGNATURE: Heidy Wright OT/Broderick PATIENT NAME: Aislinn Wheeler DATE: January 20, 2021 TIME: 8:24 AM [facility] Basic Metabolic Panlon 01-19 Anion gap [Moles/Vol] 11 mmol/L Normal 9-18 [facility] Calcium [Mass/Vol] 8.5 mg/dL Normal 8.5-10.2 [facility] Chloride [Moles/Vol] 93 mmol/L Low 97-105 [facility] CO2 [Moles/Vol] 24 mmol/L Normal 22-30 [facility] Creatinine [Mass/Vol] 1.92 mg/dL High 0.58-0.96 [facility] eGFR- Amer. [address] [facility]ital eGFR-All Other Races 26 . Normal [facility] Comment on above: Result Comment: eGFR (Estimated GFR) Units of measure: mL/min/1.73 meters squared eGFR is derived from the reexpressed MDRD Study equation using the following parameters: serum creatinine, age, gender and race. The creatinine assay has been calibrated to be traceable to [employer]. An eGFR <60 mL/min/1.73m2 for >3 months is consistent with chronic kidney disease. Refer to KDOQI guidelines for clinical interpretation. In patients with unstable renal function, e.g. those with acute kidney injury, the eGFR may not accurately reflect actual GFR. Glucose [Mass/Vol] 268 mg/dL High 74-99 [facility] Comment on above: Result Comment: The [place] Diabetes Association (ADA) provides guidance for cutoff [...] Standards of Medical Care in Diabetes 2016, [place] [employer]. Diabetes Care. 2016.39(Suppl 1). Potassium [Moles/Vol] 4.2 mmol/L Normal 3.7-5.1 [facility] Sodium [Moles/Vol] 128 mmol/L Low 136-144 [facility] Urea nitrogen [Mass/Vol] 77 mg/dL High 7-21 [facility] Anion gap [Moles/Vol] 11 mmol/L Normal 9-18 [facility] Calcium [Mass/Vol] 8.3 mg/dL Low 8.5-10.2 [facility] Chloride [Moles/Vol] 88 mmol/L Low 97-105 [facility] CO2 [Moles/Vol] 23 mmol/L Normal 22-30 [facility] Creatinine [Mass/Vol] 1.93 mg/dL High 0.58-0.96 [facility] eGFR- Amer. [address] [facility] eGFR-All Other Races 26 . Normal [facility] Comment on above: Result Comment: [...] GFR. Glucose [Mass/Vol] 292 mg/dL High 74-99 [facility] Comment on above: Result Comment: The [place] Diabetes Association (ADA) provides guidance for cutoff [...] Standards of Medical Care in Diabetes 2016, [place] [employer]. Diabetes Care. 2016.39(Suppl 1). Potassium [Moles/Vol] 3.8 mmol/L Normal 3.7-5.1 [facility] Sodium [Moles/Vol] 122 mmol/L Low 136-144 [facility] Urea nitrogen [Mass/Vol] 82 mg/dL High 7-21 [facility] CBCon 01-19-2021 Absolute nRBC <0.01 Normal <0.01 [facility] Erythrocyte distribution width (RBC) [Ratio] 12.8 % Normal 11.5-15.0 [facility] Hematocrit (Bld) [Volume fraction] 27.5 % Low 36.0-46.0 [facility] Hemoglobin (Bld) [Mass/Vol] 9.1 g/dL Low 11.5-15.5 [facility] MCH 24.9 pG Low 26.0-34.0 [facility] MCHC (RBC) [Mass/Vol] 33.1 g/dL Normal 30.5-36.0 [facility] MCV (RBC) [Entitic vol] 75.1 fL Low 80.0-100.0 [facility] Platelet mean volume (Bld) [Entitic vol] 11.2 fL Normal 9.0-12.7 [facility] l Platelets (Bld) [#/Vol] 297 10*3/uL Normal 150-400 [facility] RBC (Bld) [#/Vol] 3.66 10*6/uL Low 3.90-5.20 [facility] WBC (Bld) [#/Vol] 12.14 10*3/uL High 3.70-11.00 [facility] CONSULT PROGon 01-19-2021 CONSULT PROG HNO ID: [id number] Author: Rajendra Cruz MD Service: Nephrology Author Type: Physician Type: Consult Progress Note Filed: 01/19/2021 2:40 PM Note Text: [facility] NEPHROLOGY CONSULT PROGRESS NOTE SERVICE DATE: January [...] DATE: January 19, 2021 2:27 PM PHONE: [phone] FOR AFTER HOUR CONCERNS BETWEEN 7PM - 7AM CONTACT ON-CALL NEPHROLOGY STAFF [facility] NUTRITIONon 01-19-2021 NUTRITION HNO ID: [id number] Author: Michelle Louis RD Service: Nutrition Therapy [...] history;Intake records;Patient/family self-report;Weight loss;Nausea;Vomiting Estimated kilocalorie needs: 8774-3372 Calorie Calculation Method: 30-35 kcals/kg Estimated protein [...] Question: Carbohydrate Control Answer: 3-5 CARBS/MEAL 01/18/21 2210 Anthropometrics: Height: 152.4 cm (5') Weight: 44.1 [...] January 19, 2021 TIME: 10:59 AM PAGER: [phone] I have reviewed the nutritional assessment note documented by the international relations teacher and I personally participated in the miller components. I have discussed the case and nutritional management of the patient's care. Michelle Louis MS,RD,LD,[facility] THERAPY NTon 01-19-2021 THERAPY NT HNO ID: [id number] Author: Afia Radford, PT Service: Physical Therapy Author Type: Physical Therapist Type: Therapy (PT/OT/Speech/Resp) Filed: 01/19/2021 2:57 PM Note Text: Physical Therapy Evaluation SERVICE DATE: 01/19/2021 SERVICE TIME: 1307 to 1331 ROOM: [place] [address] Recommended Discharge Disposition: Home PT Anticipated Discharge [...] 0 Tub/Shower Type: tub shower Laundry: basement, [id number] Equipment Owned: Cane;Standard Walker Prior Functional Level: [...] Diagnosis: Reduced mobility-other Interventions Provided: Evaluation;Therapeutic Exercise (51262);Gait Training (21034) $ Evaluation-Low (12090) Billed Units: 1 unit Therapeutic Exercise (81200) Treatment Minutes: 1 Patient performed in seated position: Marching, AP/HR, hip ABD, LAQ x10 B LE- instructions written on white board for pt to complete on her own. Gait Training (49561) Treatment Minutes: 8 $ Gait Training (61571) Billed Units: 1 unit Training AND education [...] Additional personnel present during visit: Aleksander Syed, SPT Normal [facility] Basic Metabolic Panlon 01-18 Anion gap [Moles/Vol] 13 mmol/L Normal 9-18 [facility] Calcium [Mass/Vol] 8.8 mg/dL Normal 8.5-10.2 [facility] Chloride [Moles/Vol] 88 mmol/L Low 97-105 [facility] CO2 [Moles/Vol] 22 mmol/L Normal 22-30 [facility] Creatinine [Mass/Vol] 2.21 mg/dL High 0.58-0.96 [facility] eGFR- Amer. [address] [facility]ital eGFR-All Other Races 23 . Normal [facility] Comment on above: Result Comment: [...] GFR. Glucose [Mass/Vol] 253 mg/dL High 74-99 [facility] Comment on above: Result Comment: The [place] Diabetes Association (ADA) provides guidance for cutoff [...] Standards of Medical Care in Diabetes 2016, [place] [employer]. Diabetes Care. 2016.39(Suppl 1). Potassium [Moles/Vol] 3.7 mmol/L Normal 3.7-5.1 [facility] Sodium [Moles/Vol] 123 mmol/L Low 136-144 [facility] Urea nitrogen [Mass/Vol] 93 mg/dL High 7-21 [facility] Anion gap [Moles/Vol] 16 mmol/L Normal 9-18 [facility] Calcium [Mass/Vol] 9.0 mg/dL Normal 8.5-10.2 [facility] Chloride [Moles/Vol] 93 mmol/L Low 97-105 [facility] CO2 [Moles/Vol] 21 mmol/L Low 22-30 [facility] Creatinine [Mass/Vol] 2.59 mg/dL High 0.58-0.96 [facility] eGFR- Amer. 23 Normal [facility] eGFR-All Other Races 19 . Normal [facility] Comment on above: Result Comment: [...] ospital Comment on above: Result Comment: The [place] Diabetes Association (ADA) provides guidance for cutoff [...] Standards of Medical Care in Diabetes 2016, [place] [employer]. Diabetes Care. 2016.39(Suppl 1). Potassium [Moles/Vol] 4.7 mmol/L Normal 3.7-5.1 [facility] Sodium [Moles/Vol] 130 mmol/L Low 136-144 [facility] Urea nitrogen [Mass/Vol] 97 mg/dL High 7-21 [facility] CASE [facility] [id number] Author: Nicol Landin RN Service: ? 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 Assist with AD Completion: Yes [...] Walker Has the Patient Been in a Fdc Facility in the Past 30 days?: No [...] and plan for meeting these needs: Patient's mswbfqmu-hw-rhc and son live close by and come over to help often Patient's perception of need for this admission: necessary Medication Adherance I am convinced of the importance of my prescription medication: 0 - Agree Completely I worry that my prescription medication will do more harm than good to me : 0 - Disagree Completely I feel financially burdened by my tml-lt-batgxt expenses for my prescription medication:: 0 - Disagree Completely Risk Score: 0 Patient is categorized as: Low risk < 2 Are you interested in bedside delivery of your medications? Yes Is Patient Psychosocially Complex?: Yes, refer to Social Work ASSESSMENT AND PLAN: Medical Needs: Medical Needs: Two or more chronic diseases Psychosocial Needs: Psychosocial Needs: None FREEDOM OF CHOICE EXPLAINED: [place] of Choice Given: No Reason Not Given: [...] and hospitalized about 1 month ago in [place] but no resolution of her symptoms. She [...] 18, 2021 TIME: 10:51 AM PAGER/CONTACT #: [phone] Normal [facility] CBCon 01-18-2021 Absolute nRBC <0.01 Normal <0.01 [facility] Erythrocyte distribution width (RBC) [Ratio] 13.0 % Normal 11.5-15.0 [facility] Hematocrit (Bld) [Volume fraction] 31.2 % Low 36.0-46.0 [facility] Hemoglobin (Bld) [Mass/Vol] 9.9 g/dL Low 11.5-15.5 [facility] MCH 24.4 pG Low 26.0-34.0 [facility] MCHC (RBC) [Mass/Vol] 31.7 g/dL Normal 30.5-36.0 [facility] MCV (RBC) [Entitic vol] 77.0 fL Low 80.0-100.0 [facility] Platelet mean volume (Bld) [Entitic vol] 10.8 fL Normal 9.0-12.7 [facility] Platelets (Bld) [#/Vol] 310 10*3/uL Normal 150-400 [facility] RBC (Bld) [#/Vol] 4.05 10*6/uL Normal 3.90-5.20 [facility] WBC (Bld) [#/Vol] 17.03 10*3/uL High 3.70-11.00 [facility] CONSULTon 01-18-2021 CONSULT HNO ID: [id number] Author: Annie Trinidad DO Service: Hypertension AND [...] Noted a no-show appointment to urology at [facility]. She also reports that she has had [...] for n (more content not included)... Normal [facility] CONSULT HNO ID: [id number] Author: Taurus Ballard MD Service: Urology Author Type: Physician Type: Consults Filed: 01/18/2021 8:27 AM Note Text: [facility] UROLOGY CONSULT NOTE [...] the pa (more content not included)... Normal [facility] Creatinine,Urine,Ranon 01-18 Creatinine,Urine,Ran 33.5 mg/dL Normal 20-300 [facility] Comment on above: Performed By: #### U SAUNDRA, UOSM, UCRR ####[facility] [address] [place], [place] [phone] Magnesiumon 01-18-2021 Magnesium [Mass/Vol] 1.9 mg/dL Normal 1.7-2.3 [facility] NURSING PROGon 01-18-2021 NURSING PROG HNO ID: [id number] Author: Barbara Spicer RN Service: ? Author Type: Registered Nurse Type: Nursing Progress Note Filed: 01/18/2021 10:28 AM Note Text: Nursing Progress Note Patient Name: Aislinn Wheeler Patient Location: / Daily Note:pt report given to pete LE. Pt VSS. Pt belongings packed. This note was completed by: Barbara Spicer [facility] Osmolalityon 01-18-2021 Osmolality [Osmolality] 298 mosm/kg Normal 275-300 [facility] Comment on above: Performed By: #### O SM ####[facility] [place], [place] [phone] Osmolality, Urineon 01-19-20 21 Osmolality, Urine 273 mOsm/kg Normal 50-1200 [facility] Comment on above: Performed By: #### U SAUNDRA, UOSM, UCRR ####[facility] [address] [place], [place] [phone] Sepsis Lactateon 01-18-2021 Sepsis Lactate 0.9 mmol/L Normal <2.1 [facility] Sodium,Urine,Randomon 2020 Sodium (U) [Moles/Vol] 32 mmol/L Normal 14-216 [facility] Comment on above: Performed By: #### U SAUNDRA, UOSM, UCRR ####[facility] [place], [place] [phone] THERAPY NTon 01-18-2021 THERAPY NT HNO ID: [id number] Author: Wendy Montes De Oca OT/L Service: Occupational Therapy Author Type: Occupational Therapist Type: Therapy (PT/OT/Speech/Resp) Filed: 01/18/2021 1:10 PM Note Text: Occupational Therapy Evaluation SERVICE DATE: 01/18/2021 SERVICE TIME: 0854 to 0915 ROOM: [place] [address] Recommended Discharge Disposition: Home OT Recommended Discharge [...] 0 Tub/Shower Type: tub shower Laundry: basement, bsqjhtqu-bf-ghm Equipment Owned: Cane;Standard Walker CURRENT FUNCTIONAL STATUS: [...] and signs-other Interventions Provided: Evaluation $ Evaluation-Moderate (83917) Billed Units: 1 unit Training and education [...] DATE: January 18, 2021 TIME: 1:06 PM Normal [facility] Urine Cultureon 01-18-2021 Bacteria identified Cx Nom (U) Sp. Request/Comment: - Specimen received in preservative Culture Result - No growth (<1,000 CFU/ml) [facility] Comment on above: Performed By: #### U RCUL ####[place] [id number] [place], [place] [phone] Blood Cultureon 01-17-2021 Bacteria identified Cx Nom (Bld) Culture Result - No growth 5 days Normal [facility] Comment on above: Performed By: #### B LCUL ####[facility] [place], [place] [phone] C-Reactive Proteinon 021 C-Reactive Protein 32.4 mg/dL High <0.9 [facility] Comment on above: Performed By: #### W SR ####[address] [phone] CBC and Differentialon 01-17 Abs Baso <0.03 Normal <0.11 [facility] Abs Eosin <0.03 Normal <0.46 [facility] Abs Ocean 0.73 k/uL Normal <0.87 [facility] Abs Neut 14.70 k/uL High 1.45-7.50 [facility] Absolute nRBC <0.01 Normal <0.01 [facility] Basophils/100 WBC (Bld) 0.1 % Normal [facility] DTYPE Auto Diff Normal [facility] Eosinophils/100 WBC (Bld) 0.0 % Normal [facility] Erythrocyte distribution width (RBC) [Ratio] 13.1 % Normal 11.5-15.0 [facility] Hematocrit (Bld) [Volume fraction] 35.1 % Low 36.0-46.0 [facility] Hemoglobin (Bld) [Mass/Vol] 11.3 g/dL Low 11.5-15.5 [facility] Lymphocytes (Bld) [#/Vol] 1.88 10*3/uL Normal 1.00-4.00 [facility] Lymphocytes/100 WBC (Bld) 10.8 % Normal [facility] MCH 24.2 pG Low 26.0-34.0 [facility] MCHC (RBC) [Mass/Vol] 32.2 g/dL Normal 30.5-36.0 [facility] MCV (RBC) [Entitic vol] 75.2 fL Low 80.0-100.0 [facility] Monocytes/100 WBC (Bld) 4.2 % Normal [facility] Neutrophils/100 WBC (Bld) 84.9 % Normal [facility] NRBCs 0.0 /100 WBC Normal 0 [facility] l Platelet mean volume (Bld) [Entitic vol] 11.4 fL Normal 9.0-12.7 [facility] l Platelets (Bld) [#/Vol] 345 10*3/uL Normal 150-400 [facility] RBC (Bld) [#/Vol] 4.67 10*6/uL Normal 3.90-5.20 [facility] WBC (Bld) [#/Vol] 17.33 10*3/uL High 3.70-11.[address] [facility] [address] ABD/PEL WO IVCONon 2020 CT ABD/PEL WO IVCON * * *Final Report* * * DATE OF EXAM: Jan 17 2021 8:05PM [facility] 0531 - CT ABD/PEL WO IVCON / PROCEDURE REASON: Mass or lump, abdomen pelvis * * * * Physician Interpretation * * * * CT OF CHEST, ABDOMEN AND PELVIS WITHOUT CONTRAST CLINICAL HISTORY: Aspiration (accession [id number]), Mass or lump, abdomen pelvis (accession [id number]) Concern for possible source of infection vs [...] report for details. Pelvic bones are intact. Accounts Receivable Processor (topogram) images: Unremarkable. IMPRESSION: Left upper lobe [...] be communicated with the ordering provider via apomio staff message or phone message by Imaging Support Services within 2 business days of report finalization. ACTIONABLE RESULT: FOLLOW-UP Acuity: Actionable Findings: Kidneys/Ureters/Bladder /Adrenal Routing Code: GU_1 Recommendation: MRI KIDNEY WO/W IVCON Time Frame: non-urgent, but prompt follow-up. COMMUNICATION: Results will be communicated with the ordering provider via apomio staff message or phone message by Imaging Support Services within 2 business days of report finalization. Algorithms for management of incidental imaging findings can be found on the [facility] Intranet Sharepoint site at: [email or web address] [email or web address]/ Managing%20Incidental%2 0Findi ngs%20at%20Imaging/Form s/AllItems.aspx Granite Installer: GUILLE Transcribe Date/Time: Jan 17 2021 8:20P Dictated by : PADILLA JIM MD This examination was interpreted and the report reviewed and electronically signed by: PADILLA JIM MD on Jan 17 2021 8:43PM EST [id number] ACTIONABLE Invalid Interpretation Code [facility] CT BRAIN WO IVCONon 01-18-[address] BRAIN WO IVCON * * *Final Report* * * DATE OF EXAM: Jan 17 2021 4:26PM [facility] 0504 - CT BRAIN WO IVCON [...] base and imaged soft tissues are unremarkable. Accounts Receivable Processor (topogram) images: No additional findings. IMPRESSION: No acute intracranial hemorrhage or mass effect is seen Granite Installer: PSCKimberlyn Transcribe Date/Time: Jan 17 2021 4:47P Dictated by : JOHN THAKKAR MD This examination was interpreted and the report reviewed and electronically signed by: JOHN THAKKAR MD on Jan 17 2021 4:48PM EST [id number] [facility] CT CERVICAL SPINE WO IVCONon 01-17-2021 CT CERVICAL SPINE WO IVCON * * *Final Report* * * DATE OF EXAM: Jan 17 2021 4:26PM [facility] 0505 - CT CERVICAL SPINE WO [...] Counting reference: Craniocervical junction. Anatomic Variants: None. Accounts Receivable Processor (topogram) images: No additional findings. Alignment: Straightening [...] vertebrae with counting from the craniocervical junction. Granite Installer: GUILLE Transcribe Date/Time: Jan 17 2021 4:49P Dictated by : JOHN THAKKAR MD This examination was interpreted and the report reviewed and electronically signed by: JOHN THAKKAR MD on Jan 17 2021 4:53PM EST [id number] Normal [facility] CT CHEST WO IVCONon 01-18-20 CT CHEST WO IVCON * * *Final Report* * * DATE OF EXAM: Jan 17 2021 8:05PM [facility] 0541 - CT CHEST WO IVCON / PROCEDURE REASON: Aspiration * * * * Physician Interpretation * * * * CT OF CHEST, ABDOMEN AND PELVIS WITHOUT CONTRAST CLINICAL HISTORY: Aspiration (accession [id number]), Mass or lump, abdomen pelvis (accession [id number]) Concern for possible source of infection vs [...] report for details. Pelvic bones are intact. Accounts Receivable Processor (topogram) images: Unremarkable. IMPRESSION: Left upper lobe [...] be communicated with the ordering provider via apomio staff message or phone message by Imaging Support Services within 2 business days of report finalization. ACTIONABLE RESULT: FOLLOW-UP Acuity: Actionable Findings: Kidneys/Ureters/Bladder /Adrenal Routing Code: GU_1 Recommendation: MRI KIDNEY WO/W IVCON Time Frame: non-urgent, but prompt follow-up. COMMUNICATION: Results will be communicated with the ordering provider via apomio staff message or phone message by Imaging Support Services within 2 business days of report finalization. Algorithms for management of incidental imaging findings can be found on the [facility] Intranet Sharepoint site at: [email or web address] [email or web address]/ Managing%20Incidental%2 0Findi ngs%20at%20Imaging/Form s/AllItems.aspx Granite Installer: GUILLE Transcribe Date/Time: Jan 17 2021 8:20P Dictated by : PADILLA JIM MD This examination was interpreted and the report reviewed and electronically signed by: PADILLA JIM MD on Jan 17 2021 8:43PM EST [id number] ACTIONABLE Invalid Interpretation Code [facility] CT LUMBAR SPINE WO IVCONon 0 01-17-2021 CT LUMBAR SPINE WO IVCON * * *Final Report* * * * * * SEE BOTTOM OF REPORT FOR ADDENDED TEXT * * * DATE OF EXAM: Jan 17 2021 5:34PM [facility] 0508 - CT LUMBAR SPINE WO [...] are 5 lumbar-type vertebrae. Anatomic variant: None. Accounts Receivable Processor (topogram) images: No additional findings. Alignment: Alignment [...] on 01/17/2021 6:08 PM via verbal communication. Granite Installer: GUILLE Transcribe Date/Time: Jan 17 2021 6:05P Dictated by : JOHN THAKKAR MD This examination was interpreted and the report reviewed and electronically signed by: JOHN THAKKAR MD on Jan 17 2021 6:01PM EST This document has been addended by: JOHN THAKKAR MD on Jan 17 2021 6:08PM EST [id number] [facility] CT THORACIC SPINE WO IVCONon 01-17-2021 CT THORACIC SPINE WO IVCON * * *Final Report* * * DATE OF EXAM: Jan 17 2021 5:34PM [facility] 0514 - CT THORACIC SPINE WO [...] the purposes of this report, anatomic variants: Accounts Receivable Processor (topogram) images: No additional findings. Alignment: Alignment [...] and assume there are 5 lumbar-type vertebrae. Granite Installer: PSCB Transcribe Date/Time: Jan 17 2021 6:03P Dictated by : JOHN THAKKAR MD This examination was interpreted and the report reviewed and electronically signed by: JOHN THAKKAR MD on Jan 17 2021 6:13PM EST [id number] Normal [facility] Comp Metabolic Panelon 01-17 Albumin [Mass/Vol] 3.0 g/dL Low 3.9-4.9 [facility] ALP [Catalytic activity/Vol] 162 U/L High 34-123 [facility] ALT [Catalytic activity/Vol] 7 U/L Normal 7-38 [facility] Anion gap [Moles/Vol] 17 mmol/L Normal 9-18 [facility] AST [Catalytic activity/Vol] 15 U/L Normal 13-35 [facility] Bilirubin [Mass/Vol] 0.4 mg/dL Normal 0.2-1.3 [facility] Calcium [Mass/Vol] 9.6 mg/dL Normal 8.5-10.2 [facility] Chloride [Moles/Vol] 83 mmol/L Low 97-105 [facility] CO2 [Moles/Vol] 20 mmol/L Low 22-30 [facility] Creatinine [Mass/Vol] 2.93 mg/dL High 0.58-0.96 [facility] eGFR- Amer. 20 Normal [facility] eGFR-All Other Races 16 . Normal [facility] Comment on above: Result Comment: [...] ospital Comment on above: Result Comment: The [place] Diabetes Association (ADA) provides guidance for cutoff [...] Standards of Medical Care in Diabetes 2016, [place] [employer]. Diabetes Care. 2016.39(Suppl 1). Potassium [Moles/Vol] 5.5 mmol/L High 3.7-5.1 [facility] Protein [Mass/Vol] 9.5 g/dL High 6.3-8.0 [facility] Sodium [Moles/Vol] 120 mmol/L Low 136-144 [facility] Comment on above: Result Comment: Resu lt checked and verified Urea nitrogen [Mass/Vol] 104 mg/dL High 7-21 [facility] ED NOTEon 01-17-2021 ED NOTE HNO ID: [id number] Author: Prerna Luke RN Service: ? Author Type: Registered Nurse Type: ED Notes Filed: 01/17/2021 9:32 PM Note Text: Report called to 4E RN. Patient stable for transport at this time. [facility] ED NOTE HNO ID: [id number] Author: Prerna Luke RN Service: ? Author Type: Registered Nurse Type: ED Notes Filed: 01/17/2021 9:20 PM Note Text: 16Fr chaves inserted with 500 cc urine immediately drained. Patient tolerated well. [facility] ED NOTE HNO ID: [id number] Author: Prerna Luke RN Service: ? Author Type: Registered Nurse Type: ED Notes Filed: 01/17/2021 7:22 PM Note Text: BC obtained by lab. ABX infusing at this time. [facility] ED NOTE HNO ID: [id number] Author: Prerna Luke RN Service: ? Author Type: Registered Nurse Type: ED Notes Filed: 01/17/2021 7:06 PM Note Text: This RN and 2 medics unable to straight stick patient for blood or draw from existing IVs. Lab will draw one set of BC; GIANNI Tucker notified that only one set will be obtained. [facility] ED NOTE HNO ID: [id number] Author: Prerna Luke RN Service: ? Author Type: Registered Nurse Type: ED Notes Filed: 01/17/2021 4:25 PM Note Text: XR at bedside [facility] ED NOTE HNO ID: [id number] Author: Prerna Luke RN Service: ? Author Type: Registered Nurse Type: ED Notes Filed: 01/17/2021 4:03 PM Note Text: covid swab obtained and walked to lab. [facility] ED NOTE HNO ID: [id number] Author: Bharat Patterson RN Service: ? Author [...] Reports oral intake has been poor Normal [facility] ED PROV NOTEon 01-17-2021 ED PROV NOTE HNO ID: [id number] Author: Garrett Simon PA-C Service: Emergency Medicine Author Type: Physician Commercial Correspondent Type: ED Provider Notes Filed: 01/17/2021 9:27 PM Note Text: Attestation signed by Cory Crawley III, MD at 01/18/2021 12:06 PM Attending Note I have personally performed a face to face assessment of the patient and have reviewed the GIANNI/ISHAN note. My miller findings include: This is [...] 12:05 PM ED Provider Note Patient Name: Aisilnn Wheeler SERVICE DATE: 01/17/21 History Patient presents [...] significant midlin (more content not included)... Normal [facility] HISTORY PHYSICALon HISTORY PHYSICAL HNO ID: [id number] Author: Trevor Porras MD Service: Hospital Medicine Author Type: Physician Type: HANDP Filed: 01/17/2021 10:12 PM Note Text: DEPARTMENT OF HOSPITAL MEDICINE HISTORY AND PHYSICAL EXAM SERVICE DATE: 01/17/2021 Code Status: Not on file SERVICE TIME: 10:00 PM Primary Care Physician: No Pcp NIGHT AND WEEKEND COVERAGE: [place] COVERAGE: Days: [phone], please contact via apomio [employer] Nights: [phone], please page CC Hospitalist Night coverage pager [phone] Subjective CHIEF COMPLAINT: Generalized weakness, falls HPI: [...] Most recen (more content not included)... Normal [facility] Intermed Rapid COVIDon 01-17 SARS-CoV-2 (COVID-19) RNA ADRIEL+probe Ql (Unsp spec) UPPER RESPIRATORY TRACT SWAB Normal [facility] Comment on above: Performed By: #### I TCOVD ####[facility] [place], [place] [phone] SARS-CoV-2 (COVID-19) RNA ADRIEL+probe Ql (Unsp spec) Negative for COVID19 (SARS CoV2) by RT-PCR or equivalent method. Normal Negative for COVID19 (SARS CoV2) by RT-PCR or equivalent method. [facility] Comment on above: Result Comment: This test was developed and its performance characteristics determined by [facility]'s [facility]. This test has been authorized by FDA under an Emergency Use Authorization (EUA). This test has been validated in accordance with the FDA's Guidance Document Policy for Diagnostics Testing in Laboratories Certified to Perform High Complexity Testing under CLIA prior to Emergency use Authorization for Coronavirus Disease 2019 during the Public Health Emergency issued on October 19, 2019. Test performed by [facility], [facility], [address], [place] [address]. Performed By: #### I TCOVD ####[id number] [place], [place] [phone] Magnesiumon 01-17-2021 Magnesium [Mass/Vol] 2.0 mg/dL Normal 1.7-2.3 [facility] NT Pro BNPon 01-17-2021 PRO B Natr Peptide 394 pg/mL High <125 [facility] Sed Rate Westergrenon 2020 Sed Rate Westergren 124 mm/hr High 0-20 [facility] Comment on above: Performed By: #### W SR ####[address] [phone] TSHon 01-17-2021 TSH Qn 0.615 m[IU]/L Normal 0.270-4.200 [facility] Troponin Ton 01-17-2021 Troponin T.cardiac [Mass/Vol] 0.023 ug/L Normal 0.000-0.029 [facility] Urinalysis with Microscopico n 01-17-2021 Bacteria Present Critically abnormal 0 [facility] Bilirubin, Urine Negative Normal Negative [facility] pital Cast SEE COMMENT Normal 0 [facility] Comment on above: Result Comment: 0 Clarity (U) Turbid Critically abnormal Clear [facility] Color (U) Yellow Normal Yellow [facility] Glucose Ql (U) Negative Normal Negative [facility] Hemoglobin/Blood,Ur 2+ Critically abnormal Negative [facility] Ketones Ql (U) Negative Normal Negative [facility] Leukest 3+ Critically abnormal Negative [facility] Nitrite Ql (U) Positive Critically abnormal Negative [facility] pH (U) 8.5 [pH] High 5.0-8.0 [facility] Protein, Urine 2+ Critically abnormal Negative [facility] RBC 3-5 Critically abnormal 0-3 [facility] Specific [place], Ur 1.013 Normal 1.005-1.030 [facility] Urobilinogen Qn (U) 0.2 {Madeleine'U}/dL Normal 0.2-1.0 [facility] WBC (U) [#/Vol] /uL Critically abnormal 0-5 [facility] Urine Cultureon 01-17-2021 Bacteria identified [...] F Ertapenem SUSCEPTIBLE <=0.5 F Critically abnormal [facility] Comment on above: Performed By: #### U RCUL ####[facility] [place], [place] [phone] XR CHEST 1V FRONTAL PORTon 0 01-17-2021 [...] exam with no evidence of acute disease. Granite Installer: PSCB Transcribe Date/Time: Jan 17 2021 4:40P Dictated by : FLASH WOODS MD This examination was interpreted and the report reviewed and electronically signed by: FLASH WOODS MD on Jan 17 2021 4:41PM EST [id number] Normal [facility] Vital Signs Date Time Vital Sign Value Performing Clinician Facility 08-01-2023 15:00-0500 Body height 154.94 cm [facility] 06-08-2023 13:00-0400 Body height 154.94 cm Tondra Mapus Other [facility] Other 06-08-2023 13:00-0400 Body mass index (BMI) [Ratio] 25.37 kg/m2 Tondra Mapus Other [facility] Other 06-08-2023 13:00-0400 Body weight 60.92 kg Tondra Mapus Other [facility] Other 06-08-2023 13:00-0400 Diastolic blood pressure 66 mm[Hg] Tondra Mapus Other [facility] Other 06-08-2023 13:00-0400 Respiratory rate 18 /min Tondra Mapus Other [facility] Other 06-08-2023 13:00-0400 SaO2% (BldA) [Mass fraction] 100 % Tondra Mapus Other [facility] Other 06-08-2023 13:00-0400 Systolic blood pressure 107 mm[Hg] Tondra Mapus Other [facility] Other 05-18-2023 11:00-0400 Body height 154.94 cm Tondra Mapus Other [facility] Other 05-18-2023 11:00-0400 Body mass index (BMI) [Ratio] 24.69 kg/m2 Tondra Mapus Other [facility] Other 05-18-2023 11:00-0400 Body weight 59.29 kg Tondra Mapus Other [facility] Other 05-18-2023 11:00-0400 Diastolic blood pressure 96 mm[Hg] Tondra Mapus Other [facility] Other 05-18-2023 11:00-0400 Respiratory rate 18 /min Tondra Mapus Other [facility] Other 05-18-2023 11:00-0400 SaO2% (BldA) [Mass fraction] 97 % Tondra Mapus Other [facility] Other 05-18-2023 11:00-0400 Systolic blood pressure 161 mm[Hg] Tondra Mapus Other [facility] Other 02-22-2023 08:34-0400 Blood Pressure Location Lisa Lue [facility] 02-22-2023 08:34-0400 Diastolic blood pressure 66 mm[Hg] Lisa Lue [facility] 02-22-2023 08:34-0400 Heart rate 76 /min Lisa Lue [facility] 02-22-2023 08:34-0400 Systolic blood pressure 106 mm[Hg] Lisa Lue [facility] 12-27-2022 16:00-0400 Body height 154.94 cm [facility] Other [employer] [facility] Other 12-27-2022 16:00-0400 Body mass index (BMI) [Ratio] 26.11 kg/m2 [employer] Other [facility] Other 12-27-2022 16:00-0400 Body temperature 96.5 [degF] [employer] [facility] Other [facility] Other 12-27-2022 16:00-0400 Body weight 62.69 kg [employer] [facility] Other [facility] Other 12-27-2022 16:00-0400 Diastolic blood pressure 98 mm[Hg] [employer] [facility] Other [facility] Other 12-27-2022 16:00-0400 Respiratory rate 18 /min [employer] [facility] Other [employer] Other 12-27-2022 16:00-0400 SaO2% (BldA) [Mass fraction] 98 % Eli Sprague Other [facility] Other 12-27-2022 16:00-0400 Systolic blood pressure 151 mm[Hg] Eli Sprague Other [facility] Other 09-21-2022 08:42-0500 Blood Pressure Location Lisa Lue [facility] 09-21-2022 08:42-0500 Diastolic blood pressure 67 mm[Hg] Lisa Lue [facility] 09-21-2022 08:42-0500 Heart rate 74 /min Lisa Lue [facility] 09-21-2022 08:42-0500 Systolic blood pressure 103 mm[Hg] Lisa Lue [facility] Encounters Encounter Date Encounter Type Care Provider Facility Start: 10-25-2023 ambulatory HEIDY Salinas ty:[facility] Start: 10-14-2023 End: 10-14-20[facility] Start: 10-13-2023 End: 10-14-2023 ambulatory [facility] Start: 10-11-2023 End: 10-11-2023 ambulatory LATOSHA OLMSTEAD Not Available Start: 10-10-2023 Refill Latosha Marina MOGUL OPERATOR [facility] Comment on above: 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; Complex regional pain syndrome type 1 of right upper extremity Start: 09-29-2023 End: 09-30-2023 ambulatory [facility] Start: 09-28-2023 ambulatory Rosie Esqueda Research Coordinator [facility] Provider Adult Comment on above: [facility] IRB# [phone] Start: 09-28-2023 E-mail encounter francisco m caregiver Rosie Whipple Yin Research Coordinator [facility] Start: 09-27-2023 Telephone encounter Rosie Noel tayla Research Coordinator [facility] Provider Adult Comment on above: Research F/U Start: 09-26-2023 Telephone encounter Rosie Noel tayla Research Coordinator [facility] Provider Adult Comment on above: Research F/U Start: 09-12-2023 End: 09-13-2023 ambulatory HEIDY DOMINGORY Facility:[facility] [place] Start: 09-12-2023 End: 09-12-2023 Patient encounter procedure HEIDY Jennifer ARNOLD [facility] Start: 09-07-2023 Refill Yesenia Burnett RN [facility] Comment on above: 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 Start: 09-05-2023 End: 09-05-2023 ambulatory Tondra Mapus Other [facility] Other Start: 09-05-2023 Telephone encounter Tondra Mapus [facility] Start: 08-09-2023 End: 08-10-2023 ambulatory [facility] Start: 08-09-2023 End: 08-09-2023 ambulatory [facility] Start: 08-01-2023 End: 08-01-2023 Patient encounter procedure [facility] Nephrology Michael Work Phone: Start: 07-18-2023 End: 07-19-2023 ambulatory HEIDY Jennifer ARNOLD Facility:[facility] [place] Start: 07-05-2023 End: 07-05-2023 Orders Only Taurus Ballard MD Work Phone: Urology Comment on above: Kidney cyst, acquire d (Primary Dx) Start: 07-05-2023 Telephone encounter Eli Sprague [facility] Start: 06-28-2023 End: 06-29-2023 ambulatory Lisa Porras Facility:[facility] [place] Start: 06-28-2023 End: 06-28-2023 Patient encounter procedure Lisa Porras [facility] Start: 06-26-2023 End: 06-26-2023 ambulatory Tondra Mapus Other [facility] Other Start: 06-26-2023 Telephone encounter Tondra Mapus [facility] Start: 06-23-2023 Telephone encounter Heidy salas RN Urology Comment on above: Surgical Followup Start: 06-22-2023 End: 06-23-2023 ambulatory TAURUS BALLARD Facility:[facility] Start: 06-19-2023 ambulatory Taurus newton MD Work Phone: Urology Comment on above: Aislinn Wheeler upcomin g procedure Start: 06-15-2023 Telephone encounter Vonnie Wilder RN Ur ology Comment on above: Pre-Op Teaching Start: 06-12-2023 End: 06-12-2023 ambulatory Tondra Mapus Other [facility] Other Start: 06-12-2023 Telephone encounter Tondra Mapus [facility] Start: 06-08-2023 End: 06-08-2023 Lab Drop off HEIDY ARNOLD [place] Start: 06-08-2023 End: 06-08-2023 Patient encounter procedure LATOSHA OLMSTEAD [facility] Start: 06-08-2023 (PUMP/CGM) Pump / Sensor Tondra Mapus [facility] Start: 06-08-2023 End: 06-09-[address] [facility] Other Start: 06-06-2023 Encounter for other preprocedural examination TAURUS BALLARD [facility] Start: 06-06-2023 End: 06-07-2023 ambulatory TAURUS BALLARD Facility:[facility] Start: 05-22-2023 End: 05-23-2023 ambulatory Lisa AshokIrina Sharifjennifer Facility:[facility] Start: 05-22-2023 End: 05-22-2023 Patient encounter procedure Lisa AshokIrina Porras [place] Start: 05-18-2023 End: 05-18-2023 ambulatory Sara Augustine Other [facility] Other Start: 05-18-2023 [facility] visit new patient Sara Augustine [facility] Start: 05-18-2023 Telephone encounter Taurus rees MD Work Phone: Urology Comment on above: Follow Up Start: 05-17-2023 End: 05-17-2023 ambulatory TAURUS BALLARD Facility:[facility] Start: 05-11-2023 End: 2023 ambulatory HEIDY ARNOLD Facility:[facility] Start: 05-11-2023 End: 05-11-2023 Lab Drop off HEIDY ARNOLD [place] Start: 05-03-2023 End: 05-04-2023 ambulatory Lisa M. Lue Facility:[facility] Start: 04-18-2023 End: 04-19-2023 ambulatory HEIDY ARNOLD Facility:[facility] Start: 04-18-2023 End: 04-19-2023 ambulatory Lisa M. Lue Facility:[facility] Start: 04-18-2023 End: 04-18-2023 Lab Drop off HEIDY ARNOLD [place] Start: 04-18-2023 End: 04-18-2023 Patient encounter [facility] Start: 04-04-2023 End: 04-04-2023 ambulatory Brigette Wesley Other [facility] Other Start: 04-04-2023 Telephone encounter Brigette Wesley [facility] Start: 02-22-2023 End: 02-23-2023 ambulatory Lisa Porras Facility:[facility] [place] Start: 02-22-2023 End: 02-22-2023 Patient encounter [facility] Start: 01-09-2023 End: 01-09-2023 ambulatory Azyanet Bakdis Other [facility] Other Start: 01-09-2023 Telephone encounter Aziz Bakhous [facility] Start: 01-03-2023 End: 01-04-2023 ambulatory PEDIATRIC SOCIAL WORKER LATOSHA AICHHOLZ Facility:[facility] Start: 12-28-2022 End: 12-29-2022 ambulatory PEDIATRIC SOCIAL WORKER LATOSHA AICHHOLZ Facility:[facility] Start: 12-27-2022 End: 12-27-2022 ambulatory Aziz Bakhous Other [facility] Other Start: 12-27-2022 Office outpatient ne w 30 minutes Aziz Bakhous [facility] Start: 12-15-2022 End: 12-16-2022 ambulatory PEDIATRIC SOCIAL WORKER LATOSHA AICHHOLZ Facility:[facility] Start: 12-14-2022 End: 12-15-2022 ambulatory RAMON HUNTLEY Facility:[facility] Start: 10-27-2022 End: 10-28-2022 ambulatory PEDIATRIC SOCIAL WORKER LATOSHA AICHHOLZ Facility:[facility] Start: 10-26-2022 ambulatory Lisa Porras Facility:[facility] Start: 10-24-2022 End: 10-25-2022 ambulatory PEDIATRIC SOCIAL WORKER LATOSHA AICHHOLZ Facility:[facility] Start: 10-12-2022 End: 10-13-2022 ambulatory PEDIATRIC SOCIAL WORKER LATOSHA AICHHOLZ Facility:[facility] Start: 10-05-2022 End: 10-06-2022 ambulatory PEDIATRIC SOCIAL WORKER LATOSHA AICHHOLZ Facility:H1 Start: 09-29-2022 End: 09-30-2022 ambulatory PEDIATRIC SOCIAL WORKER LATOSHA AICHHOLZ Facility:H1 Start: 09-21-2022 End: 09-22-2022 ambulatory PETER D HIGHLANDER Facility:H1 Start: 09-21-2022 End: 09-21-2022 Patient encounter procedure Lisa Porras [facility] Start: 09-15-2022 End: 09-16-2022 ambulatory PEDIATRIC SOCIAL WORKER LATOSHA AICHHOLZ Facility:H1 Start: 09-13-2022 End: 09-13-2022 Patient encounter procedure HEIDY ARNOLD [facility] Start: 09-08-2022 End: 09-09-2022 ambulatory PEDIATRIC SOCIAL WORKER LATOSHA AICHHOLZ Facility:H1 Start: 09-02-2022 End: 09-03-2022 ambulatory PETER D HIGHLANDER Facility:H1 Start: 08-26-2022 End: 08-27-2022 ambulatory PETER D HIGHLANDER Facility:H1 Start: 08-09-2022 End: 08-10-2022 ambulatory PETER D HIGHLANDER Facility:H1 Start: 08-05-2022 End: 08-06-2022 ambulatory PETER D HIGHLANDER Facility:H1 Start: 08-04-2022 End: 08-05-2022 ambulatory PETER D HIGHLANDER Facility:H1 Start: 08-03-2022 End: 08-04-2022 ambulatory PEDIATRIC SOCIAL WORKER LATOSHA AICHHOLZ Facility:H1 Start: 08-02-2022 End: 08-03-2022 ambulatory PEDIATRIC SOCIAL WORKER LATOSHA AICHHOLZ Facility:H1 Start: 08-01-2022 End: 08-02-2022 ambulatory PEDIATRIC SOCIAL WORKER LATOSHA AICHHOLZ Facility:H1 Start: 07-19-2022 End: 07-20-2022 ambulatory KIARA XAVIERANILAJosue Facility:H1 Start: 07-08-2022 End: 07-09-2022 ambulatory KIARA OLMSTEAD Facility:H1 Start: 07-06-2022 End: 07-07-2022 ambulatory KIARA OLMSTEAD Facility:H1 Start: 07-05-2022 End: 07-06-2022 ambulatory RAMON Tillman [facility] Facility:H1 Start: 06-28-2022 End: 06-29-2022 ambulatory RAMON Tillman [facility] Facility:H1 Start: 06-24-2022 End: 06-25-2022 ambulatory RAMON Tillman [facility] Facility:H1 Start: 06-11-2022 End: 06-16-2022 Evaluation and management of inpatient DR NENO VIEIRA . Facility:H1 Start: 06-02-2022 End: 06-02-[address] NELL PALMA Facility:H1 Start: 06-02-2022 End: 06-03-2022 ambulatory RAMON Tillman [facility] Facility:H1 Start: 2022 End: 2022 ambulatory RAQUEL SABA . Facility:H1 Start: 01-27-2021 End: 01-27-2021 Telephone encounter Barb Silva MD Work Phone: Nephrology Comment on above: Appointment Procedures Date Procedure Procedure Detail Performing Clinician Start: 06-22-2023 Laparoscopic partial nephrectomy of left kidney HEIDY ARNOLD Start: 06-06-2023 Antibody screen TAURUS BALLARD Comment on above: Order Comment: Speci men Type: BLOOD SPECIMEN Ordering Facility: [facility] Address: [address] [place] [address] Performed By: #### T [id number] #### [facility] CLIA [id number] [address] [place] [address] [place] [address] [place] Start: 05-22-2023 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 [id number] [place] [id number]. Ricardo Rocha Start: 06-13-2022 Detachment at Left F oot, Partial 1st Ray, Open Approach KIARA LIZ EPNNYChristianoANILAJosue Start: 06-13-2022 Microscopic examinat ion of blood, culture KIARA LIZ BHAVIKJosue Comment on above: Performed By: #### B LDCX1 ####[facility] [id number] [place] [id number]. Ricardo Rocha Start: 06-11-2022 Detachment at Left 1 st Toe, Complete, Open Approach KIARA LIZ MARIBEL Ankle region structu re (body structure) HEIDY ARNOLD Arthroscopy of knee HEIDY ARNOLD Cataract (disorder) HEIDY ARNOLD Gallbladder structur e (body structure) HEIDY ARNOLD Hysterectomy HEIDY ARNOLD Neck structure (body structure) HEIDY ARNOLD Shoulder region stru cture (body structure) HEIDY ARNOLD Upper limb structure (body structure) HEIDY ARNOLD Plan of Treatment Date Care Activity Detail Author Start: 09-29-2024 Tobacco Screening Tobacco Screening [facility] Start: 09-03-2024 Complete blood count Hemoglobin/Chal[place] tocrit [facility] Start: 09-03-2024 Creatinine measurement Serum Creatin ine [facility] Start: 08-09-2024 Adult BMI Screening Adult BMI Screen ing [facility] Start: 08-09-2024 Tobacco Screening Tobacco Screening [facility] Start: 06-23-2024 Hemoglobin/Hematocrit Hemoglobin/Hem atocrit [facility] Start: 06-23-2024 Serum Creatinine Serum Creatinine Cl [facility] Start: 06-06-2024 [facility] 06-06-[facility]24 Serum Creatinine Serum Creatinine Cl [facility] Start: 04-04-2024 Hepatitis B screening Urine Albumin:Creatinine Ratio [facility] Start: 01-22-2024 DIABETES SCREEN DIABETES SCREEN [facility] Start: 11-22-2023 End: 11-22-2023 Patient encounter procedure 11/22/2023 11:15 AM EDT Office Visit [facility] [address] [place] [phone] Sweta Li PA-C [address] [place] [address] [facility] Start: 10-25-2023 End: 10-25-2023 Patient encounter procedure 10/25/2023 12:45 PM EST Office Visit [facility] [address] [place] [phone] Sweta Li PA-C [address], [address] [place] [id number] [facility] Start: 10-13-2023 End: 10-13-2023 Njx anes stellate ganglion crv sympathetic INJECTION BLOCK NERVE STELLATE GANGLION NECK Complex regional pain syndrome type 1 of right upper extremity 10/13/2023 12:44 PM EST [facility] Start: 10-13-2023 End: 10-13-2023 Patient encounter procedure 10/13/2023 9:55 AM EST Appointment [facility] [address] [place] [phone] oJe Pedro MD [address] [place], [place] [id number] [facility] Start: 10-05-2023 End: 01-04-2024 Basic metabolic 2000 panel - Serum or Plasma BASIC METABOLIC PNL Lab Routine Kidney cyst, acquired Expected: 10/05/2023 (Approximate), Expires: 01/04/2024 [facility] Work Phone: Comment on above: Expected: 10/05/2023 (Approximate), Expires: 01/04/2024 Start: 10-05-2023 End: 08-03-2024 US KIDNEY/BLADDER US KIDNEY/BLADDER Radiology Routine Kidney cyst, acquired Expected: 10/05/2023 (Approximate), Expires: 08/03/2024 [facility] Work Phone: Comment on above: Expected: 10/05/2023 (Approximate), Expires: 08/03/2024 Start: 09-06-2023 Hemoglobin A1c measurement HbA1C [facility] Start: 09-06-2023 Hemoglobin A1c/Hemoglobin.total in Blood HbA1C [facility] Start: 08-21-2023 Advance Directive Discussion Advance Directive Discussion [facility] Start: 08-21-2023 Depression Assessment Depression Ass essment [facility] Start: 2023 Advance Directive Discussion Advance Directive Discussion [facility] Start: 2023 Bone Density Screening Bone Density Screening [facility] Start: 2023 Fall Risk Screening Fall Risk Screen [facility] Start: 2023 Screening for osteoporosis Bone Density Screening [facility] Start: 04-21-2023 Covid-19 Vaccine ( season) Covid-19 Vaccine ( season) [facility] Start: 04-21-2023 Covid-19 Vaccine ( season) Covid-19 Vaccine ( season) [facility] Start: 04-21-2023 Influenza vaccination C [facility] Start: 08-21-2022 Depression Assessment Depression Ass essment [facility] Start: 04-21-2021 Influenza vaccination INFLUENZ A (Season Ended) [facility] Start: 2018 Hepatitis B Vaccine (1 of 3 - Risk 3-dose series) Hepatitis B Vaccine (1 of 3 - Risk 3-dose series) [facility] Start: 2018 RSV Vaccine (1 - 1-d ose 60+ series) RSV Vaccine (1 - 1-dose 60+ series) [facility] Start: 2008 Administration of varicella zoster vaccine Zoster (Shingles) Vaccine (1 of 2) [facility] Start: 2008 Screening for malign ant neoplasm of colon [facility] Start: 2008 SHINGRIX VACCINE (1 of 2) SHINGRIX VACCINE (1 of 2) [facility] Start: 2003 Cologuard (FIT-DNA) Cologuard (FIT-D NA) [facility] Start: 2003 Colonoscopy Colonoscopy [facility] Start: 2003 Colorectal Cancer Screening Colorectal Cancer Screening [facility] Start: [address] Colonography [facility] Start: 2003 Fecal Occult Blood Fecal Occult Bloo d [facility] Start: 2003 LIPID SCREEN LIPID SCREEN [facility] Start: 2003 Screening for malign ant neoplasm of colon [facility] Start: 2003 Sigmoidoscopy Sigmoidoscopy [facility] Start: 1998 Mammography [facility] Start: 1998 Screening for malign ant neoplasm of breast Mammogram Screening [facility] Start: 1988 HPV TESTING HPV TESTING [facility] Start: 1979 PAP TESTING PAP TESTING [facility] Start: 1977 DTaP,Tdap and Td Vaccines (1 - Tdap) DTaP,Tdap and Td Vaccines (1 - Tdap) [facility] Start: 1977 Urine microalbumin profile [facility] Start: 1976 Annual PCP Team After School Tutor hola Disease Visit Annual PCP Team Chronic Disease Visit [facility] Start: 1976 BP Controlled (<130/80) BP Controlle d (<130/80) [facility] Start: 1976 Diabetic foot examination Diabetic Foot Exam [facility] Start: 1976 Hepatitis B surface antibody level LDL Cholesterol [facility] Start: 1976 HEPATITIS C SCREENING HEPATITIS C [facility] Start: 1976 Hepatitis C screening Hepatitis C [facility] Start: 1976 HIV SCREENING HIV SCREENING [facility] Start: 1976 HIV screening HIV Screening [facility] Start: 1976 Spirometry Spirometry [facility] Start: 1970 Adult depression screening assessment DEPRESSION SCREENING [facility] Start: 1970 COVID-19 VACCINE (1) COVID-19 VACCIN E (1) [facility] Start: 1968 3 comp foot exam completed Diabetic Foot Exam [facility] Start: 1968 Diabetic foot examination Diabetic Foot Exam [facility] Start: 1968 Glaucoma screening Dilated Retinal E xam [facility] Start: 1968 Hepatitis B screening Urine Albumin:Creatinine Ratio [facility] Start: 1968 Hepatitis C antibody , confirmatory test Dilated Retinal Exam [facility] Start: 1964 Pneumococcal Vaccine : 65+ (1 - PCV) Pneumococcal Vaccine: 65+ (1 - PCV) [facility] Start: 1964 Pneumococcal Vaccine : 65+ (1 of 2 - PCV) Pneumococcal Vaccine: 65+ (1 of 2 - PCV) [facility] Start: 1958 Glaucoma screening Diabetic Op hthalmology Exam [facility] Start: 1958 Urine screening for protein Urine Microalbumin [facility] Njx anes stellate ganglion crv sympathetic INJECTION BLOCK NERVE STELLATE GANGLION NECK Complex regional pain syndrome type 1 of right upper extremity [facility] Njx anes stellate ganglion crv sympathetic INJECTION BLOCK NERVE STELLATE GANGLION NECK Complex regional pain syndrome type 1 of right upper extremity [facility] Immunizations Immunization Date Immunization Notes Care Provider Lukas pacheco 04-02-2021 SARS-CoV-2 (COVID-19 ) mRNA-1273 vaccine HEIDY ARNOLD [facility] 12-07-2020 SARS-CoV-2 (COVID-19 ) mRNA-1273 vaccine HEIDY ARNOLD [facility] 06-03-2016 influenza virus vaccine, unspecified formulation HEIDY ARNOLD [facility] 06-03-2016 influenza, seasonal, injectable, preservative free Rosie Esqueda Research Coordinator [facility] Payers Date Payer Category Payer Self-pay 2022 Medicare [id number] 2022 Medicare [id number] [id number] 2006 Medicare MEDICARE QUINN Shoemaker [id number] 2006-Present [place], [place] Medicare [id number] [id number] 2003 Unknown [id number] 1959 Medicare [id number] 2.16.840.1.874688.19 1959 Medicare [id number] 1959 Unknown [id number] 1959 Unknown [id number] 1958 Unknown [id number] 2.16.840.1.382350.3.579.2.593 1958 Unknown [id number] 2.16.840.1.143030.3.579.2.593 1958 Unknown [id number] 2.16.840.1.325354.3.579.2.593 1958 Unknown [id number] 2.16.840.1.086205.3.579.2.593 1958 Unknown [id number] 2.16.840.1.036938.3.579.2.593 1958 Unknown [id number] 2.16.840.1.794075.3.579.2.593 1958 Unknown [id number] 2.16.840.1.226043.3.579.2.593 1958 Unknown [id number] 2.16.840.1.578601.3.579.2.593 1958 Unknown [id number] 2.16.840.1.955105.3.579.2.593 1958 Unknown [id number] 2.16.840.1.603304.3.579.2.593 1958 Unknown [id number] 2.16.840.1.151256.3.579.2.593 1958 Unknown [id number] 2.16.840.1.036420.3.579.2.593 1958 Unknown [id number] 2.16.840.1.321130.3.579.2.593 1958 Unknown [id number] 2.16.840.1.271054.3.579.2.593 1958 Unknown [id number] 2.16.840.1.413046.3.579.2.593 1958 Unknown [id number] 2.16.840.1.939999.3.579.2.593 1958 Unknown [id number] 2.16.840.1.307191.3.579.2.593 1958 Unknown [id number] 2.16.840.1.754828.3.579.2.593 1958 Unknown [id number] 2.16.840.1.774949.3.579.2.593 1958 Unknown [id number] 2.16.840.1.832298.3.579.2.593 1958 Unknown [id number] 2.16.840.1.723579.3.579.2.593 1958 Unknown [id number] 2.16.840.1.051292.3.579.2.593 1958 Unknown [id number] 2.16.840.1.997189.3.579.2.593 1958 Unknown [id number] 2.16.840.1.441785.3.579.2.593 1958 Unknown [id number] 2.16.840.1.501692.3.579.2.593 1958 Unknown [id number] 2.16.840.1.039584.3.579.2.593 1958 Unknown [id number] 2.16.840.1.680786.3.579.2.593 1958 Unknown [id number] 2.16.840.1.693693.3.579.2.593 1958 Unknown [id number] 2.16.840.1.884979.3.579.2.593 1958 Unknown [id number] 2.16.840.1.748020.3.579.2.593 1958 Unknown [id number] 2.16.840.1.452932.3.579.2.593 1958 Unknown [id number] 2.16.840.1.398497.3.579.2.125 9 1958 Unknown [id number] 2.16.840.1.138261.3.579.2.128 6 1958 Unknown [id number] 2.16.840.1.189607.3.579.2.128 6 1958 Unknown [id number] 2.16.840.1.575672.3.579.2.128 6 1958 Unknown [id number] 2.16.840.1.665950.3.579.2.128 6 1958 Unknown [id number] 2.16.840.1.826559.3.579.2.128 6 1958 Unknown [id number] 2.16.840.1.466214.3.579.2.128 6 1958 Unknown [id number] 2.16.840.1.779163.3.579.2.128 6 1958 Unknown [id number] 2.16.840.1.606347.3.579.2.128 6 1958 Unknown [id number] 2.16.840.1.255506.3.579.2.727 1958 Unknown [id number] 2.16.840.1.423028.3.579.2.72 1958 Unknown [id number] 2.16.840.1.717044.3.579.2.72 1958 Unknown [id number] 2.16.840.1.220681.3.579.2. 1958 Unknown [id number] 2.16.840.1.865303.3.579.2. 1958 Unknown [id number] 2.16.840.1.582996.3.579.2. 1958 Unknown [id number] 2.16.840.1.609195.3.579.2. 1958 Unknown [id number] 2.16.840.1.031595.3.579.2. 1958 Unknown [id number] 2.16.840.1.246178.3.579.2. 1958 Unknown [id number] 2.16.840.1.568420.3.579.2. 1958 Unknown [id number] 2.16.840.1.222915.3.579.2. 1958 Unknown [id number] 2.16.840.1.255795.3.579.2. 1958 Unknown [id number] 2.16.840.1.030930.3.579.2. 1958 Unknown [id number] 2.16.840.1.346916.3.579.2. 1958 Unknown [id number] 2.16.840.1.431070.3.579.2. Unknown [facility] [id number] Unknown [id number] 2.16.840.1.120443.3.579.2.531 Social History Date Type Detail Facility Start: 01-17-2021 End: 07-27-2022 Tobacco smoking status NHIS Never smoker [facility] Start: 01-17-2021 End: 07-27-2022 Tobacco use and exposure Never used [facility] Start: 01-17-2021 End: 06-06-2023 Alcohol intake Current drinker of alcohol (finding) [facility] Start: 01-17-2021 History SDOH Alcohol Frequency 1 [facility] Start: 01-17-2021 [facility] Start: 1960 Sex Assigned At Not on file [facility] Exposure to SARS-CoV -2 (event) Not sure [facility] Tobacco smoking status Never [facility] Start: 09-04-2020 End: 06-06-2023 Sex Assigned At Female [facility] Start: 09-04-2020 End: 06-06-2023 History of Social function [facility] Start: 06-06-2023 Alcohol Comment rarely--holida y or special occ [facility] Start: 08-09-2023 End: 09-29-2023 Alcohol intake Current non-drinker of alcohol (finding) [facility] Are you now , , , , never or living with a partner? [facility] How hard is it for y ou to pay for the very basics like food, housing, medical care, and heating Not very hard [facility] (I/We) worried ilss er (my/our) food would run out before (I/we) got money to buy more. DK or Refused [facility] Start: 1960 Sex Assigned At Female F [facility] Functional Status Date Assessment Result Facility 05-22-2023 Functional Status N/A [facility] 05-11-2023 Functional Status [facility] 02-22-2023 Functional Status N/A [facility] 09-21-2022 Functional Status N/A [facility] 09-13-2022 Functional Status N/A [facility] Clinical Notes 01-17-2021 to 10-10-2023 Telephone Encounter - Latosha Gray CNA - 10/10/2023 10:17 AM ESTTelephone Encounter - Latosha Gray CNA - 10/10/2023 10:17 AM ESTTelephone Encounter - Barbara Lucero RN - 09/07/2023 1:30 PM EST Note Date & Type Note Facility 10-10-2023 Miscellaneous Notes Formattin g of this note might be different from the original. Last OV: 08/12/23 Next OV: proc 10/13/23 OARRS appropriate: yes Last UDS: 08/12/23 Pharmacy: [facility] documented in this encounter [facility] 10-10-2023 Telephone encount er Note Last OV: 08/12/23 Next OV: proc 10/13/23 OARRS appropriate: yes Last UDS: 08/12/23 Pharmacy[place] [facility] [place] [facility] 09-27-2023 Miscellaneous Notes Summary: [facility] IRB# [id number] IRB# [id number]: Vascular events in patients undergoing same-day [facility]iac surgery [facility] PI: Mary Rojas MD, LETY, FASA. Outcomes Research Department. Anesthesia [place]. [facility]. Aislinn Wheeler was unavailable at the listed phone number. We will attempt to contact the patient through Beaming message. Rosie Esqueda, Research Coordinator Research Coordinator documented in this encounter [facility] 09-26-2023 Miscellaneous Notes Summary: [facility] IRB# [id number] IRB# [id number]: Vascular events in patients undergoing same-day nonCardiac surgery - [place] PI: Mary Rojas MD, LETY, JAKUBA. Outcomes Research Department. Anesthesia [place]. [facility]. Aislinn Wheeler was unavailable at the listed phone number. We will attempt to contact the patient again at a later date. Rosie Esqueda, Research Coordinator Research Coordinator documented in this encounter [facility] 09-07-2023 Miscellaneous Notes Formattin g of this note might be different from the original. Last OV: 08/09/2023 Next OV: --- OARRS appropriate: yes Last UDS: 08/09/2023 Pharmacy[facility] [place] [facility] Patient left phone message requesting refill on Wharton and Lyrica. Lyrica prescription signed 08/11/2023 has 1 refill. Per OARRS patient last filled Lyrica 08/11/2023. Wharton prescription pended for review and signature. Patient's fill dated adjusted from 09/14/23 to 09/17/23 due to recent 3 day hospitalization. documented in this encounter [facility] 09-07-2023 Telephone encount er Note Last OV: 08/09/2023 Next OV: --- OARRS appropriate: yes Last UDS: 08/09/2023 Pharmacy: [facility] [place] [facility] Patient left phone message requesting refill on Wharton and Lyrica. Lyrica prescription signed 08/11/2023 has 1 refill. Per OARRS patient last filled Lyrica 08/11/2023. Wharton prescription pended for review and signature. [facility] 09-07-2023 Telephone encount er Note Patient's fill dated adjusted from 09/14/23 to 09/17/23 due to recent 3 day hospitalization. [facility] [employer] 09-03-2023 Note HNO ID: [id number] Author: KRYSTA SULLIVAN MD Service: Hospital Medicine [...] Recent Labs 09/03/23 0441 09/02/23 0430 09/02/23 04209/01/23 0455 WBC 6.44 5.94 -- 7.48 HB [...] -- 08/31/23 1115 activity - mobilize patient (nj,oh) VTE Prophylaxis: VTE prophylaxis appropriate SIGNATURE: Krysta Sullivan MD PATIENT NAME: Aislinn Wheeler DATE: September 03, 2023 TIME: 6:31 PM [facility] 09-02-2023 Note HNO ID: [id number] Author: KRYSTA SULLIVAN MD Service: Hospital Medicine [...] -- 08/31/23 1115 activity - mobilize patient (nj,ak) VTE Prophylaxis: VTE prophylaxis appropriate SIGNATURE: Krysta Sullivan MD PATIENT NAME: Aislinn Wheeler DATE: September 02, 2023 TIME: 2:31 PM [facility] 09-02-2023 Note HNO ID: [id number] Author: NOTE, INTERFACE, ? Service: ? Author Type: ? Type: Progress Notes Filed: 09/02/2023 02:20 Note Text: Epic Scheduled Downtime: 09/02/2023 1:00:00 AM to 09/02/2023 2:04:22 AM [facility] 09-01-2023 Note HNO ID: [id number] Author: CHELSEA LOUIS RN Service: Care Management Author Type: Registered Nurse Type: Care Mgt Progress Note Filed: 09/01/2023 15:30 Note Text: CARE MANAGEMENT WEEKEND PLANNING NOTE NO WEEKEND DISCHARGE Disposition: TBD Anticipated Discharge Date: No weekend DC anticipated Weekend Sleeve Sewer Pager #: Girish Rogers [phone] ANATOLIY UTI - repeat UA sent - bc pending Waiting on podiatry consult SIGNATURE: Chelsea Louis RN PATIENT NAME: Aislinn Wheeler DATE: September 01, 2023 TIME: 3:28 PM PAGER/CONTACT #: [phone] [facility] 09-01-2023 Note HNO ID: [id number] Author: ANTHONY BARROW MD Service: Hospital Medicine [...] -- 08/31/23 1115 activity - mobilize patient (nj,oh) VTE Prophylaxis: VTE prophylaxis appropriate SIGNATURE: Anthony Barrow MD PATIENT NAME: Aislinn Wheeler DATE: September 01, 2023 TIME: 11:36 AM [facility] 08-31-2023 Note HNO ID: [id number] Author: TIN QUIÑONEZ LSW Service: Care Management Author Type: Bilingual Kindergarten Teacher Type: Care Mgt Initial Assessment Filed: 08/31/2023 14:02 Note Text: CARE MANAGEMENT: ASSESSMENT AND DISCHARGE PLAN SERVICE DATE: August 31, 2023 SERVICE TIME: 1:42 PM PCP: Latosha Olmstead Primary Contact: Extended Emergency Contact Information Primary Emergency Contact: CHLOE SEARS Mobile Relation: Grandchild Admission Status: Inpatient Insurance Provider: [facility] MEDIC[facility] PPO Discharge Planning requested by: Per Department Practice Potential Transition Plans To Be Determined Advance Directives Current Advance Directive: None Machine Stone Polisher Attempted to Assist with AD Completion: Yes Action: Education Provided Current Living Arrangements and Support Lives with: Family members, Children Type of Residence: Private Residence (House) Support: Family members How do you manage to accomplish the following: Independent: Ambulation;Bathe/Shower;Dress;M eals/Meal Prep;Going to the bathroom;Medication Management;Transportation to appointments/community Current Services/Equipment Current Post-Acute Service(s): None Discharge Planning Patient Goal(s): General wellness [place] of [place] Explained: [place] of [place] Given: No Reason Not Given: [...] with pt at bedside. Pt lives in [place] with her grandchildren (18, 17, and [...] 31, 2023 TIME: 1:42 PM CONTACT #: [id number] [facility] 08-31-2023 History of Past i llness Narrative [...] of this encounter (statuses as of 09/27/2023) [facility]01-11-2024 History of Past illness Narrative* Problem Noted Date Diagnosed Date Resolved Date Fever 08/31/2023 09/04/2023 Urinary tract infection without hematuria 08/31/2023 09/04/2023 Acute cystitis without hematuria 01/18/2021 01/21/2021 Pyelonephritis 01/17/2021 01/21/2021 Sepsis 01/17/2021 01/21/2021 Hyponatremia 01/17/2021 01/21/2021 Hyperkalemia 01/17/2021 09/04/2023 ANATOLIY (acute kidney injury) 01/17/2021 Hydronephrosis due to obstruction of ureter 01/17/2021 01/21/2021 documented as of this encounter (statuses as of 09/28/2023) [facility]01[facility] History of Past illness Narrative* Problem Noted Date Diagnosed Date Resolved Date Fever 08/31/2023 09/04/2023 Urinary tract infection without hematuria 08/31/2023 09/04/2023 Acute cystitis without hematuria 01/18/2021 01/21/2021 Pyelonephritis 01/17/2021 01/21/2021 Sepsis 01/17/2021 01/21/2021 Hyponatremia 01/17/2021 01/21/2021 Hyperkalemia 01/17/2021 09/04/2023 ANATOLIY (acute kidney injury) 01/17/2021 Hydronephrosis due to obstruction of ureter 01/17/2021 01/21/2021 documented as of this encounter (statuses as of 09/28/2023) [facility]11-15-2023 Evaluation note* Encounter Date Diagnosis Assessment Notes Treatment Notes Treatment Clinical Notes Jun, Vitamin B12 deficiency (ICD-10 - E53.8) [facility] Other 11-03-2023 NoteHNO ID: [id number] Author: Rashad Kaye Service: ? Author Type: ? Type: Plan of Care Filed: 06/26/2023 9:53 AM Note Text: PHARMACY BEDSIDE DELIVERY SERVICE Patient Name: Aislinn Wheeler The marked outpatient medications were Filled at: [facility] and delivered to the patient's bedside to [facility] Medication List START taking these medications [...] your Primary Care Provider. Rashad Kaye PAGER: [phone] June 26, 2023 9:52 [facility]11-03-2023 NoteHNO ID: [id number] Author: Taurus Ballard MD Service: Urology Author Type: Physician Type: Progress Notes Filed: 06/23/2023 1:37 PM Note Text: [facility] UR[facility] PROGRESS NOTE Name: Aislinn Wheeler Bed: [id number] Date: June 23, 2023 After Hours [facility] Urology Service Pager: [phone] ASSESSMENT AND PLAN Aislinn Wheeler is a [...] Jeet De La Fuente MD Urology Resident [facility] Pager [phone] SUBJECTIVE -c/o pain, had a BM, no [...] 25.39 kg/m?. Input and Output Date 06/22/23 0700 - 06/23/23 0659 06/23/23 0700 - 06/24/23 0659 Shift 2245-8248 8080-6441 7621-4331 24 Hour Total 3651-9623 5722-6892 7260-8751 24 Hour Total INTAKE IV 1600 1600 Volume (mL) (lactated ringers iv infusion) 1000 1000 Volume (mL) (lactated ringers iv infusion) 600 600 Shift Total 1600 1600 OUTPUT Urine 300 115 889 8636 OR Urine Output 300 300 Output ( Indwelling Urinary Catheter 06/22/23 1130 Chaves 16 Fr) 101 999 1651 Tubes 20 40 60 Drain/Tube Output (Drain/Tube 06/22/23 1333 Lex Vega Right Lower Quadrant Abdomen Drain #1) 20 40 60 # of BMs Number of BMs 1 x 1 x Blood 50 50 Estimated Blood loss 50 50 Shift Total 350 662 688 6166 Weight (kg) 59 59 59 59 59 [...] Will discharge. We will call with pathology. Kevan Lindoview Jowjtlom04-17-3870 Miscellaneous Notes* Telephone Encounter - Heidy Garcia RN - 06/23/2023 9:03 AM EDT Patient had left robotic partial nephrectomy by Dr. Ballard on 06/22/2023 Will call for surgical follow up once discharged documented in [facility] NoteHNO ID: [id number] Author: Linda Nicholson RN Service: Nursing Author Type: Registered Nurse Type: Nursing Progress Note Filed: 06/22/2023 2:15 PM Note Text: surgical dressing: surgical glue, [facility]11-02-2023 NoteHNO ID: [id number] Author: Chloe Be APRN.CRNA Service: ? 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 Will try again. documented in [facility] Evaluation note* Encounter Date Diagnosis Assessment [...] (ICD-10 - Z68.25) May, Other see above [facility] Other 10-02-2023 Note [id number]:127[facility] 05-22-2023 NoteCystoscopy with Botox injection ? [...] if you have a fever over 100 degrees.[facility] 05-22-2023 Hospital Discharge instructions Patient Education [...] Up Care 05/03/2023 10:48:47 With:Lisa Porras Address: [address] [place] [address] [phone] Business (1) [address], [address] [place] [address]- [phone] Business (1) When: Unknown Comments:Office to schedule follow up in 1 month with [facility] [place]09-28-2023 Evaluation note* Encounter Date Diagnosis Assessment Notes [...] 24.0-24.9, adult (ICD-10 - Z68.24) see above [facility] Other [id number] Miscellaneous Notes* Telephone Encounter - Latosha Faulkner - 05/18/2023 12:57 PM EDT Consult notes sent back to Dr. Lisa Porras , phone [phone]. From [address] Ballard office. documented in this encounterPark[facility]09-[facility]-2023 NoteHNO ID: [id number] Author: Taurus Ballard MD Service: ? Author Type: Physician Type: Progress Notes Filed: 05/17/2023 1:35 PM Note Text: [facility] FOLLOW-UP PATIENT HISTORY AND PHYSICAL [...] 1.92 01/19/[address] scan (outside records) [facility] 09/28/21 IMPRESSION: Since the prior CT [...] threatening or minor complicatio (more content not included)...[facility] Discharge instructions Patient Education 02/22/2023 09:35:15 [...] provider. Document Revised: 12/16/2021 Document Reviewed: 12/16/2021 [employer] Patient Education 2022 [employer]. Follow Up Care 09/13/2022 14:59:43 With:Vern TAVERAS, Lisa Montiel, URL, URO Address: When:Within 2 Month(s) Comments:w/ [facility] 05-09-2023 Evaluation note* Encounter Date Diagnosis Assessment [...] her blood pressure persistently more than 150/90. [facility] Other 02-01-2023 Hospital Discharge instructions Patient Education [...] 07/24/2013 Document Revised: 03/27/2019 Document Reviewed: 03/27/2019 [employer] Patient Education 2020 [employer]. Follow Up Care 09/14/2022 14:44:34 With:Vern TAVERAS, EMELINA Hernandez, URO Address: When: Unknown [facility] 01-24-2023 Hospital Discharge instructions Patient [...] fried and sweet foods. General instructions Take dnab-ljw-othnjxc and prescription medicines only as told by [...] 06/03/2010 Document Revised: 11/28/2019 Document Reviewed: 08/23/2018 [employer] Patient Education 2020 [employer] Follow Up Care 08/24/2022 11:21:49 With:HEIDY ARNOLD PA-C, URL Address: [address] [place] [address] When: Unknown [facility] 06-09-2021 Miscellaneous Notes* Telephone Encounter - Barbara Talbot - 01/27/2021 10:30 AM EDT Scheduled 02/15 * Telephone Encounter - Barb Silva MD - 01/27/2021 9:40 AM EDT Please schedule hospital follow up with Guy Overton Deitzer, or Sasha. Virtual ok documented in this encounterParkview [facility]06-[facility]-2021 NoteHNO ID: [id number] Author: Griselda Diaz ([employer]) Service: ? Author Type: ? Type: Plan [...] Generic drug: insulin detemir U-100 Griselda Diaz ([employer]) PAGER: paris January 21, 2021 4:[address]03-2021 NoteHNO ID: [id number] Author: ELIZABETH Kothari Service: Care Management Author Type: Bilingual Kindergarten Teacher Type: Care Mgt Progress Note Filed: 01/21/2021 1:39 PM Note Text: CARE MANAGEMENT DISCHARGE NOTE SERVICE DATE: 01/21/2021 SERVICE TIME: 1300 LOS: 4 days Admission Date: 01/17/2021 DISCHARGE ARRANGEMENT (list agency and phone number) Discharge Arrangement: Home;Home Mcfp Care: Nursing;PT;OT [facility] ASSESSMENT: Maira Davila to transport home [phone] HANDOFF COMMUNICATION: Handoff to: Other Caregiver;Primary Care Physician Primary Care Physician Name/Phone: Madeline Jordan PA-C Other Caregiver Name/Phone: [facility] TRANSPORTATION ARRANGEMENTS: Transportation Arrangements: Car (Family to transport) ADDITIONAL CONTACT RESOURCES: [facility] not able to accept. [place] of choice provided and sent to first available to accept to her service area. [facility] willing to accept. Pt concerned she does not have [employer] part B to cover services. I spoke with maira who plans on paying for services out of pocket until pt's insurance becomes active February 18, 2021 Discharge Information Row Name ED to Hosp-Admission (Current) from 01/17/[address] Care Agency [facility] Fax# Care to start after your appointment with internal medicine on 01/25/2021 for additional orders. The agency will be contacting you to set this up Durable Medical Equipment Agency [employer] Equipment Needed Walker was delivered to hospital room prior to discharge [facility] willing to accept pending pt has her initial appointment with internal medicine on 01/25/2021. Both pt and maira Davila were advised. Dr Hansen also provided script for outpt therapy should home care fall through or cost too high for maira to cover. Chloe to call [place] to discuss further. Walker was delivered to room and prescription was sent to [facility]. 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 No other homegoing needs. SIGNATURE: ELIZABETH Kothari PATIENT NAME: Aislinn Wheeler DATE: January 21, 2021 TIME: 1:32 PM PAGER/CONTACT #: [phone] [id number] NoteHNO ID: [id number] Author: Derik Juanyiris Kimbroughpuma Service: Care Management Author Type: Resource Center Commercial Correspondent Type: Care Mgt Progress Note Filed: 01/21/2021 11:24 AM Note Text: CARE MANAGEMENT PROGRESS NOTE SERVICE DATE: 01/21/2021 SERVICE TIME: 950 LOS: 4 days IMM Follow Up Copy Given: Yes Copy given to:: Patient Method: In Person SIGNATURE: Derik Khalilloriepuma PATIENT NAME: Aislinn Wheeler DATE: January 21, 2021 TIME: 11:23 AM PAGER/CONTACT #: [phone] [id number] NoteHNO ID: [id number] Author: Ailyn Salas RN Service: Care Management Author Type: Registered Nurse Type: Care Mgt Progress Note Filed: 01/20/2021 3:29 PM Note Text: CARE MANAGEMENT PROGRESS NOTE SERVICE DATE: 01/20/2021 SERVICE TIME: 3:09 PM LOS: 3 days [place] of Choice Given: Yes Level of Care Discussed: Home Care Financial Disclosure Provided: No Financial Disclosure Comments: [facility] does not service area Provider List: Home [...] sent. Patient does not have a PCP. [facility] can provide a visiting provider to [...] 20, 2021 TIME: 3:09 PM PAGER/CONTACT #: [phone] [id number] NoteHNO ID: [id number] Author: Inna Hansen DO Service: Hospital Medicine Author Type: Physician Type: Progress Notes Filed: 01/20/2021 12:37 PM Note Text: DEPARTMENT OF HOSPITAL MEDICINE PROGRESS NOTE SERVICE DATE: 01/20/2021 SERVICE TIME: 10:37 AM Hospital Medicine/Primary Attending: Inna Hansen DO NIGHT AND WEEKEND COVERAGE: DELMY COVERAGE: Days: [phone], please contact via TextDiggersage Nights: [phone], please page CC Hospitalist Night coverage pager [phone] Subjective INTERVAL HPI: nausea and vomiting this [...] Most recent imaging Assessment/Plan Problem List Sepsis ([facility]) POA: Yes Pyelonephritis POA: Yes Hydronephrosis due to obstruction of ureter POA: Yes Acute cystitis without hematuria POA: Unknown Acute bilateral obstructive uropathy POA: Yes Hyponatremia POA: Yes ANATOLIY (acute kidney injury) ([facility]) POA: Yes Hyperkalemia POA: Yes Severe protein-calorie malnutrition ([facility]) POA: Unknown Principal Problem: Sepsis ([facility]) Pyelonephritis Complicated UTI Hydronephrosis due [...] Non-Pharmacologic VTE Prophylaxis/Anticoagulants 01/17/212214 pneumatic compression stockings ([place], [place]) 01/17/212214 activity - mobilize patient ([place]) VTE Prophylaxis: VTE prophylaxis appropriate Disposition: Primo Hansen DO January 20, 2021 10:39 [facility]uj[facility]-9171 NoteHNO ID: [id number] Author: Benjamin Bernal MD Service: Urology Author [...] Wendy Bernal MD January 19, 2021 4:12 [facility]Polx[facility]wy01-[facility]-48[facility] NoteHNO ID: [id number] Author: Shelby Lucero PharmD Service: Pharmacy Author Type: Pharmacist Type: Plan of Care Filed: 01/19/2021 11:02 AM Note Text: PHARMACY MEDICATION REVIEW Patient Name: Aislinn Wheeler : 1960 The following medications were updated within the DATER ASSEMBLER medication list: Medications ADDED to DATER ASSEMBLER medication list ? Albuterol HFA (replaced nebs) ? Levemir (replaced Lantus) Medications CHANGED on DATER ASSEMBLER medication list ? Lyrica (added instructions) ? Symbicort (added instructions) Medications REMOVED from DATER ASSEMBLER medication list ? Diltiazem ? Cymbalta ? [...] nothing too big . Call placed to [facility] pharmacy to clarify prescribed dose of insulin, and the only prescription for insulin [facility] has on file is for Relion 70/30 inject 25 units BID. [facility] pharmacist states this was prescribed 02/19/2020 but never picked up. The below information represents the best possible medication history: Yes Medication history completed by: Pharmacist: Shelby Lucero PharmD Source of history: Patient: Reliability of source: Appears reliable, clearly identified: Medication name and Pharmacy records: [employer] data, [facility] pharmacy (phone call) Medication nonadherence identified: Unable to assess - it is clear the patient is noncompliant with her medications (admits she has been off her meds, no insulin fills at [facility] despite patient report), but at this time unable to assess reason for nonadherence. Reconciliation completed: Yes All DATER ASSEMBLER medications addressed by LIP and Medication reconciliation completed by: Shelby Lucero PharmD Medications with dose or frequency intentionally adjusted at admission: ? Wharton modified to 5/325 mg q6h PRN New medications at admission: ? Ceftriaxone Note patient ordered insulin regimen (Lantus 15 units QHS + sliding scale Humalog) and based on blood glucose readings, this is appropriate Patient interested in Bedside Delivery Services or using OP Pharmacy at discharge? Unable to assess Preferred outpatient pharmacy: [id number] [place] [address] [address] [facility] - [phone] Allergies: Latex Rash Comment:Added based on information [...] 2 Puffs as instructed twice daily. Shelby Lucero PharmD 01/19/2021[facility] CenterZxfpcwte81-74-0894 NoteHNO ID: [id number] Author: Inna Hansen DO Service: Hospital Medicine Author Type: Physician Type: Progress Notes Filed: 01/19/2021 2:24 PM Note Text: DEPARTMENT OF HOSPITAL MEDICINE PROGRESS NOTE SERVICE DATE: 01/19/2021 SERVICE TIME: 9:30 AM Hospital Medicine/Primary Attending: Inna Hansen DO NIGHT AND WEEKEND COVERAGE: DELMY COVERAGE: Days: [phone], please contact via apomio [employer] Nights: [phone], please page CC Hospitalist Night coverage pager [phone] Subjective INTERVAL HPI: no overnight events. Denies [...] Most recent imaging Assessment/Plan Problem List Sepsis ([facility]) POA: Yes Pyelonephritis POA: Yes Hydronephrosis due to obstruction of ureter POA: Yes Acute cystitis without hematuria POA: Unknown Acute bilateral obstructive uropathy POA: Yes Hyponatremia POA: Yes ANATOLIY (acute kidney injury) ([facility]) POA: Yes Hyperkalemia POA: Yes Principal Problem: Sepsis ([facility]) Pyelonephritis Complicated UTI Hydronephrosis due [...] Non-Pharmacologic VTE Prophylaxis/Anticoagulants 01/17/212214 pneumatic compression stockings ([place] 01/17/212214 activity - mobilize patient ([place] VTE Prophylaxis: VTE prophylaxis appropriate Disposition: Home Discussed with granddaughter Chloe by phone with patient's permission. Inna Hansen DO January 19, 2021 9:33 [facility]Mjjycxyx81-37-5199 History of Past illness Narrative* Problem Noted Date Resolved Date Acute cystitis without hematuria 01/18/2021 01/21/2021 Pyelonephritis 01/17/2021 01/21/2021 Sepsis 01/17/2021 01/21/2021 Hyponatremia 01/17/2021 01/21/2021 Hyperkalemia 01/17/2021 01/21/2021 Hydronephrosis due to obstruction of ureter 12/2101/21/2021 documented as of this encounter (statuses as of 01/27/2021) [facility] History of Past illness Narrative* Problem Noted Date Diagnosed Date Resolved Date Acute cystitis without hematuria 01/18/2021 01/21/2021 Pyelonephritis 01/17/2021 01/21/2021 Sepsis 01/17/2021 01/21/2021 Hyponatremia 01/17/2021 01/21/2021 Hyperkalemia 01/17/2021 01/21/2021 Hydronephrosis due to obstruction of ureter 01/17/2021 01/21/2021 documented as of this encounter (statuses as of 06/09/2023) [facility] of Past illness Narrative* Problem Noted Date Diagnosed Date Resolved Date Acute cystitis without hematuria 01/18/2021 01/21/2021 Pyelonephritis 01/17/2021 01/21/2021 Sepsis 01/17/2021 01/21/2021 Hyponatremia 01/17/2021 01/21/2021 Hyperkalemia 01/17/2021 01/21/2021 Hydronephrosis due to obstruction of ureter 01/17/2021 01/21/2021 documented as of this encounter (statuses as of 06/15/2023) [facility] of Past illness Narrative* Problem Noted Date Diagnosed Date Resolved Date Acute cystitis without hematuria 01/18/2021 01/21/2021 Pyelonephritis 01/17/2021 01/21/2021 Sepsis 01/17/2021 01/21/2021 Hyponatremia 01/17/2021 01/21/2021 Hyperkalemia 01/17/2021 01/21/2021 Hydronephrosis due to obstruction of ureter 01/17/2021 01/21/2021 documented as of this encounter (statuses as of 06/19/2023) [facility] of Past illness Narrative* Problem Noted Date Diagnosed Date Resolved Date Acute cystitis without hematuria 01/18/2021 01/21/2021 Pyelonephritis 01/17/2021 01/21/2021 Sepsis 01/17/2021 01/21/2021 Hyponatremia 01/17/2021 01/21/2021 Hyperkalemia 01/17/2021 01/21/2021 Hydronephrosis due to obstruction of ureter 01/17/2021 01/21/2021 documented as of this encounter (statuses as of 06/23/2023) [facility] of Past illness Narrative* Problem Noted Date Diagnosed Date Resolved Date Acute cystitis without hematuria 01/18/2021 01/21/2021 Pyelonephritis 01/17/2021 01/21/2021 Sepsis 01/17/2021 01/21/2021 Hyponatremia 01/17/2021 01/21/2021 Hyperkalemia 01/17/2021 01/21/2021 Hydronephrosis due to obstruction of ureter 01/17/2021 01/21/2021 documented as of this encounter (statuses as of 07/05/2023) [facility] NoteHNO ID: [id number] Author: Inna Hansen DO Service: Hospital Medicine Author Type: Physician Type: Progress Notes Filed: 01/18/2021 4:10 PM Note Text: DEPARTMENT OF HOSPITAL MEDICINE PROGRESS NOTE SERVICE DATE: 01/18/2021 SERVICE TIME: 8:57 AM Hospital Medicine/Primary Attending: Inna Hansen DO NIGHT AND WEEKEND COVERAGE: DELMY COVERAGE: Days: [phone], please contact via apomio [employer] Nights: [phone], please page CC Hospitalist Night coverage pager [phone] Subjective INTERVAL HPI: no overnight events. Denies [...] Yes Hyperkalemia POA: Yes Principal Problem: Sepsis ([facility]) Pyelonephritis Complicated UTI Hydronephrosis due [...] Non-Pharmacologic VTE Prophylaxis/Anticoagulants 01/17/212214 pneumatic compression stockings ([place]) 01/17/212214 activity - mobilize patient ([place] VTE Prophylaxis: VTE prophylaxis appropriate Disposition: Home SIGNATURE: Inna Hansen DO PATIENT NAME: Aislinn Wheeler DATE: January 18, 2021 TIME: 8:57 [facility]qkrevej64-63-3376 NoteHNO ID: [id number] Author: Taurus Ballard MD Service: Urology Author [...] cause of her urinary retention. Taurus Ballard [facility] HospitalEmnzedty90-11-9545 NoteHNO ID: [id number] Author: RT Dayanara(R) Service: Radiology Author Type: Winemaker Type: Progress Notes Filed: 01/17/2021 8:04 PM [...] BY: RT Dayanara(R) January 17, 2021 8:03 [facility] HospitalWxmddwuo45-09-8888 NoteHNO ID: [id number] Author: RT Dayanara(R) Service: Radiology Author Type: Winemaker Type: Progress Notes Filed: 01/17/2021 5:30 PM [...] SIGNED BY: RT Dayanara(R) January 17, 2021 5:30 [facility] HospitalIbxiswdy74-99-3373 NoteHNO ID: [id number] Author: RT Zaynab(R) Service: Radiology Author Type: Winemaker Type: Progress Notes Filed: 01/17/2021 4:23 PM [...] Workman RT (R) January 17, 2021 4:22 [facility] HospitalYlyjztbq26-09-7677 NoteHNO ID: [id number] Author: AHSAN Barlow Service: ? Author Type: Clinical Winemaker Type: Progress Notes Filed: 01/17/2021 4:19 PM [...] BY: AHSAN Dozier January 17, 2021 4:19 [facility] Future Appointments Appointment Date:12/13/2022 03:00:00 PM Scheduled Provider:HEIDY ARNOLD PA-C Location:[facility] Appointment Type:URO Office Visit [facility] evaluation + Plan note Future Appointments Appointment Date:10/26/2022 10:00:00 AM Scheduled Provider:Lisa Porras MD Location:[facility] Appointment Type:URO Office Visit Appointment Date:12/13/2022 03:00:00 PM Scheduled Provider:HEIDY ARNOLD PA-C Location:[facility] Appointment Type:URO Office Visit [facility] evaluation + Plan note Future Appointments Appointment Date:05/03/2023 10:00:00 AM Scheduled Provider:Lisa Porras MD Location:[facility] Appointment Type:URO Office Visit [facility] evaluation + Plan note Future Appointments Appointment Date:05/03/2023 10:00:00 AM Scheduled Provider:Lisa Porras MD Location:[facility] Appointment Type:URO Office Visit Diagnostic Tests Pending * Urine Culture 04/18/23 [place] Future Appointments Appointment Date:05/15/2023 12:30:00 PM Scheduled Provider: Location:[facility] Appointment Type:Urology CALL PAT FT Appointment Date:05/22/2023 10:30:00 AM Scheduled Provider: Location:[facility] Appointment Type:Urology FT Diagnostic Tests Pending * Urine Culture 05/11/23 [place] Plan note Future Appointments Appointment Date:06/28/2023 10:45:00 AM Scheduled Provider:Lisa Porras MD Location:[facility] Appointment Type:URO Office Visit [place] note Future Appointments Appointment Date:06/28/2023 10:45:00 AM Scheduled Provider:Lisa Porras MD Location:[facility] Appointment Type:URO Office Visit Diagnostic Tests Pending * Urine Culture 06/08/23 [place] Plan note Future Appointments Appointment Date:07/18/2023 11:20:00 AM Scheduled Provider:HEIDY ARNOLD PA-C Location:[facility] Appointment Type:URO [facility] [facility] Plan note Future Appointments Appointment Date:10/10/2023 11:40:00 AM Scheduled Provider:HEIDY ARNOLD PA-C Location:[facility] Appointment Type:URO Office Visit [facility] evaluation noteNo [employer] Other Evaluation note* Diagnosis Kidney cyst, acquired- Primary Acquired cyst of kidney [facility] Diagnosis Reflex sympathetic dystrophy of right upper extremity [facility] Work Phone: Evaluation note* Diagnosis Reflex sympathetic dystrophy of right upper extremity Complex regional pain syndrome type 1 of right upper extremity documented in this encounter [facility] Narrative - Reported* Type Description Date [...] Hospitalization History [facility] 05/2022 [facility] Other history general Narrative - Reported* Type [...] Hospitalization History [facility] 05/2022 [facility] Narrative No data available for this section [facility] Hospital Discharge instructions No data available for this section [facility] InstructionsNot on filedocumented in this encounter [facility] filed[facility] in this [facility] No data available for this section [facility] reason for referral (narrative)* Diagnostic Procedure Only (Routine) - Pending Review Specialty Diagnoses / Procedures Referred By Contac t Referred To Contact US IMAGING Diagnoses Kidney cyst, acquired Procedures US KIDNEY/BLADDER US RETROPERITONEAL REAL TIME W/IMAGE COMPLETE Taurus Ballard MD [address] [place] [id number] [facility] [place] [address] Referral ID Status Reason Start Date Expiration Date Visits Requested Visits Authorized [id number] Pending Review Auto-Generat ed Referral 10/05/2023 08/03/2024 1 1 [facility] for visit NarrativeReferral Latosha Olmstead, New pt Type 2 IDDM apt with [employer] 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, 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, [employer] Other Summary Purpose Family History No Family History Records Found Relationship Condition Age at Onset Recorded Date/T lalit brother Heart disease Unknown Hypertension Unknown father Unknown Heart disease Unknown Diabetes mellitus Unknown Malignant neoplasm Unknown Not Specified Heart disease Unknown Unknown History of stroke Unknown natural son Heart disease Unknown sister Hypertension Unknown Advance Directives No Advanced Directives Records FoundDocuments on File Type Date Recorded 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 Advance Directive(s) 01/17/2021 3:49 PM Reason for Referral Referred by: Lisa Porras MD Chief Complaint and Reason for Visit Chief Complaint Renal 4 Month Follow Up Additional Source Comments INFORMATION SOURCE (unrecogn ized section and content) DATE CREATED AUTHOR 01/23/2021 [facility] DATE CREATED AUTHOR AUTHOR'S ORGANIZ ATION 01/04/2023 [facility] DATE CREATED AUTHOR AUTHOR'S ORGANIZ ATION 06/19/2023 [facility] DATE CREATED AUTHOR AUTHOR'S ORGANIZ ATION 09/28/2023 [facility] DATE CREATED AUTHOR AUTHOR'S ORGANIZ ATION 10/19/2023 [facility] DATE CREATED AUTHOR AUTHOR'S ORGANIZ ATION 10/19/2023 [facility] DATE CREATED AUTHOR AUTHOR'S ORGANIZ ATION 10/21/2023 [facility] DATE CREATED AUTHOR AUTHOR'S ORGANIZ ATION 10/23/2023 [facility] Source Comments (unrecognize d section and content) In the event this informatio n is protected by the Federal Confidentiality of Alcohol and Drug Abuse Patient Records regulations: The Federal rules restrict any use of the information to criminally investigate or prosecute any alcohol or drug abuse patient.[facility] Hospital[facility] the event this information is protected by the Federal Confidentiality of Alcohol and Drug Abuse Patient Records regulations: The Federal rules restrict any use of the information to criminally investigate or prosecute any alcohol or drug abuse patient.[facility] HospitalIn the event this information is protected by the Federal Confidentiality of Alcohol and Drug Abuse Patient Records regulations: The Federal rules restrict any use of the information to criminally investigate or prosecute any alcohol or drug abuse patient.[facility] HospitalIn the event this information is protected by the Federal Confidentiality of Alcohol and Drug Abuse Patient Records regulations: The Federal rules restrict any use of the information to criminally investigate or prosecute any alcohol or drug abuse patient.[facility] HospitalIn the event this information is protected by the Federal Confidentiality of Alcohol and Drug Abuse Patient Records regulations: The Federal rules restrict any use of the information to criminally investigate or prosecute any alcohol or drug abuse patient.[facility] HospitalIn the event this information is protected by the Federal Confidentiality of Alcohol and Drug Abuse Patient Records regulations: The Federal rules restrict any use of the information to criminally investigate or prosecute any alcohol or drug abuse patient.[facility] HospitalIn the event this information is protected by the Federal Confidentiality of Alcohol and Drug Abuse Patient Records regulations: The Federal rules restrict any use of the information to criminally investigate or prosecute any alcohol or drug abuse patient.[facility] HospitalIn the event this information is protected by the Federal Confidentiality of Alcohol and Drug Abuse Patient Records regulations: The Federal rules restrict any use of the information to criminally investigate or prosecute any alcohol or drug abuse patient.[facility] HospitalIn the event this information is protected by the Federal Confidentiality of Alcohol and Drug Abuse Patient Records regulations: The Federal rules restrict any use of the information to criminally investigate or prosecute any alcohol or drug abuse patient.[facility] Reason for Visit (unrecogniz ed section and content) Reason Comments Appointment Reason Comments Follow Up Reason Comments Pre-Op Teaching Reason Comments Surgical Followup Reason Onset Date Comments Med Refill 09/07/2023 Reason Onset Date Comments Research F/U 09/26/2023 Reason Onset Date Comments Research F/U 09/27/2023 Reason Onset Date Comments Med Refill 10/10/2023 Patient Care team informatio n (unrecognized section and content) Geometry Tutor Relationship Specialty Start Date End Date Latosha Olmstead [address] [place], [place] [address] [address] PCP - General 05/17/23 Lisa Porras MD [address] [place] [phone] Referring Urology 05/11/23 Geometry Tutor Relationship Specialty Start Date End Date Latosha Olmstead [address] [place] [address] PCP - General 05/17/23 Lisa Porras MD [address] [place] [address] Referring Urology 05/11/23 Geometry Tutor Relationship Specialty Start Date End Date PennychristianoanilaLatosha salas [address] [place] [address] PCP - General 05/17/23 Lisa Porras MD [address] [place] [address] Referring Urology 05/11/23 Geometry Tutor Relationship Specialty Start Date End Date PennyLatosha weston [address] [place] [address] PCP - General 05/17/23 Lisa Porras MD [address] [place] [address] Referring Urology 05/11/23 Geometry Tutor Relationship Specialty Start Date End Date Latosha Olmstead, 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-PEDIATRIC SOCIAL WORKER [address] [place] [address] PCP - General Nurse Practitioner 11/10/22 Geometry Tutor Relationship Specialty Start Date End Date JodianilaLatosha salas [address] [place] [address] PCP - General 05/17/23 Lisa Porras MD [address] [place] [address] Referring Urology 05/11/23 Geometry Tutor Relationship Specialty Start Date End Date Latosha Olmstead [address] [place] [address] PCP - General 05/17/23 Lisa Porras MD [address] [place] [address] Referring Urology 05/11/23 Team Status: Active Member Role Status Dates Sumi Lentz APRN SUPERVISING ARCHITECT-C Primary Care Provider Active Team Status: Inactive Member Role Status Dates Eli Sprague MD Attending Provider Active Star t: August 01, 2023 End: August 01, 2023 Geometry Tutor Relationship Specialty Start Date End Date Latosha Olmstead APRN-PEDIATRIC SOCIAL WORKER [address] [place] [address] PCP - General Nurse Practitioner 11/10/22 Goals (unrecognized section and content) Goals may [...] BE BASED ON THE PRIMARY CLINICAL RECORDS. [facility]. provides no warranty or guarantee of the accuracy or completeness of information in this document.
[2023-10-24 08:48] LABS: Bilirubin Urine NEGATIVE (NEGATIVE); Blood Urine MODERATE (NEGATIVE); Clarity Urine CLEAR (CLEAR); Color Urine LT. YELLOW (YELLOW); Glucose Urine UA 100 mg/dL (NEGATIVE); Ketones Urine NEGATIVE (NEGATIVE); Leukocyte Esterase Urine LARGE (NEGATIVE); Nitrite Urine NEGATIVE (NEGATIVE); Protein Urine 30 mg/dL (NEG/TRACE); Specific Gravity Urine 1.015 (1.005-1.025); Urobilinogen Urine 0.2 EU/dL (0.2-1.0); pH Urine 5.5 (5.0-9.0)
[2023-10-24 08:49] LABS: Basophils Percent Auto 0.5 % (0.2-2.0); Eosinophils Absolute Auto 0.1 10^3/uL (0.0-0.7); Hematocrit 28.8 % (36.0-48.0); Hemoglobin 8.6 g/dL (12.0-16.0); Immature Granulocytes Abs Auto 0.02 10^3/uL (0.00-0.03); Immature Granulocytes Pct Auto 0.2 % (0.0-0.5); Lymphocytes Absolute Auto 1.3 10^3/uL (1.2-3.8); Lymphocytes Percent Auto 14.7 % (20.5-60.0); Mean Corpuscular HGB Conc 29.9 g/dL (29.9-35.2); Mean Corpuscular Hemoglobin 23.6 pg (26.7-34.0); Mean Corpuscular Volume 79.1 fL (81.0-99.0); Mean Platelet Volume 10.8 fL (9.5-13.5); Monocytes Absolute Auto 0.7 10^3/uL (0.3-0.8); Monocytes Percent Auto 7.7 % (1.7-12.0); Neutrophils Absolute Auto 6.6 10^3/uL (1.4-6.5); Neutrophils Percent Auto 75.9 % (43.0-75.0); Platelet Count 274 10^3/uL (150-450); Red Blood Count 3.64 10^6/uL (4.20-5.40); Red Cell Distribution Width 14.6 % (11.0-15.0); White Blood Count 8.7 10^3/uL (4.0-11.0)
[2023-10-24 08:50] LABS: Urine Microscopic Indicated YES
[2023-10-24 09:00] LABS: Bacteria Urine SMALL #/HPF (NONE SEEN); Crystals Seen? None Seen #/HPF (None Seen); Mucus Urine NONE SEEN (NONE SEEN); RBC Urine 0-2 #/HPF (0-2); Squamous Epithelial Cell Urine RARE #/LPF (NONE/RARE); WBC Urine 75-100 #/HPF (NONE SEEN)
[2023-10-24 09:01] LABS: Cast Seen? NONE SEEN #/LPF (NONE SEEN); Urine Culture Indicated YES
[2023-10-24 09:09] LABS: Alanine Aminotransferase 14 U/L (14-59); Albumin Globulin Ratio 0.4; Albumin Level 2.5 g/dL (3.4-5.0); Alkaline Phosphatase 74 U/L (46-116); Anion Gap 13.7; Aspartate Amino Transferase 10 U/L (15-37); BUN Creatinine Ratio 16.1; Bilirubin Total 0.2 mg/dL (0.2-1.0); Calcium 8.8 mg/dL (8.5-10.1); Carbon Dioxide 23.2 mmol/L (21.0-32.0); Chloride 102 mmol/L (98-107); Chol HDL Ratio 6.6; Cholesterol 185 mg/dL (<=200); Estimated GFR (African America 18 (>=60); Estimated GFR (Non-African Ame 15 (>=60); Globulin 5.7 g/dL; Glucose 294 mg/dL (74-106); HDL Cholesterol 28 mg/dL (40-60); Potassium 5.9 mmol/L (3.5-5.1); Sodium 133 mmol/L (136-145); Total Protein 8.2 g/dL (6.4-8.2); Triglycerides 248 mg/dL (<=150); VLDL CHOLESTEROL 49.6 mg/dL
[2023-10-24 09:14] LABS: Creatinine Urine Random 51.84 mg/dL (20.00-300.00); Microalbum Creatinine Ratio Ur 327.9 mg/g (0.0-29.9)
[2023-10-24 09:35] LABS: Estimated Average Glucose 321 mg/dL; Glycohemoglobin A1C 12.8 % (4.5-6.2)
== END 2023-10-24 08:18 | disposition home or self-care (01) ==
LOC: LAB 08:18
PROVIDERS: PCP Nurse Practitioner; Visit Provider Nurse Practitioner
DX: I12.9 Hypertensive chronic kidney disease with stage 1 through stage 4 chronic kidney disease, or unspecified chronic kidney disease (principal); N18.30 Chronic kidney disease, stage 3 unspecified; E55.9 Vitamin D deficiency, unspecified; E11.65 Type 2 diabetes mellitus with hyperglycemia; Z79.4 Long term (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; R82.90 Unspecified abnormal findings in urine
CPT/HCPCS: 36415; 80053; 80061; 81001; 82043; 82306; 82570; 83036; 85025; 87086; 87150; 87186

== ENCOUNTER 2023-10-26 15:19 | Emergency (ER) | payer MEDICARE, SELFPAY ==
[2023-10-26 15:23] VITALS: BP 144/68; PULSE 92; RESP 18; TEMP 36.6; O2SAT 98; BMI 23.4
--- NOTE | 2023-10-26 15:36 | ED_ITS ---
HPI - Weakness General Chief complaint: Weakness Stated complaint: General Weakness Time Seen by Provider: 10/26/23 15:24 Source: patient Mode of arrival: walk-in Limitations: no limitations History of Present Illness HPI Narrative: Patient here for progressive weakness lack of energy and sleepiness. She has noticed over the last several days. She does not have any specific pain but she does have a number of other ongoing medical problems. She just saw her examining chair assembler 2 days ago who checked her left foot for any type of recurrence infection and did not feel that there is any infection. She has had some amp utation for peripheral vascular disease secondary to her diabetes. Additionally her primary care doctor ran some tests recently and noticed that she has got some anemia. She has not had any history of GI bleeding in the past but she says she really does not check her stools for any discoloration. She does not think she is running a fever at home but she is not sure. She also knows that she does have chronic renal failure but her outpatient labs suggest worsening of that as well. She does not have any severe headache sore throat but she does have a little bit of a cough. She has frequent UTIs but has not been on any antibiotics for several weeks at least and she has ongoing and continuous urinary incontinence. She has received Botox injections to her bladder and they are talking about electrical stimulator type procedure if none of this works. She says she just has not been eating or drinking much for the last several days either. Related Data Home Medications Medication Instructions Recorded Confirmed ferrous sulfate 325 mg (65 mg 325 mg PO QDAY 05/12/23 07/07/23 iron) tablet (FeroSul) insulin lispro 100 unit/mL 1 sliding scale dose subcut QID 05/12/23 07/07/23 subcutaneous pen pregabalin 150 mg capsule 150 mg PO Q8H 05/12/23 07/07/23 hydrocodone 7.5 mg-acetaminophen 1 tab PO Q8H PRN pain 07/07/23 07/07/23 325 mg tablet insulin glargine 100 unit/mL (3 25 unit subcut QPM 07/07/23 07/07/23 mL) subcutaneous pen (Lantus Solostar U-100 Insulin) Previous Rx's Medication Instructions Recorded ondansetron 4 mg disintegrating 4 mg PO Q4H PRN nausea and 06/19/23 tablet vomiting 3 days #6 tabs ciprofloxacin HCl 500 mg tablet 500 mg PO BID #5 tabs 07/07/23 (Cipro) Allergies Allergy/AdvReac Type Severity Reaction Status Date / Time latex Allergy Unknown Verified 06/24/23 02:12 [facility] Social History Smoking status: Never smoker Exam Narrative Exam Narrative: Patient is awake alert good distal no cognitive abilities had good historian. She is moderately pale. Her neck shows no acute findings she does not really have a sore throat her airway is widely patent there is no cough stridor or drooling. Conjunctiva pink. Tongue is not dry. Her lungs are clear with no wheeze rales or rhonchi. Heart sounds are regular with no murmur. Abdomen is benign with no guarding rebound rigidity peritoneal findings or tenderness. No organomegaly. Extremities she has a large boot that was just evaluated by her examining chair assembler within the last 48 hours so I have left that intact. She does not have any new pain or discomfort in the foot. Rest her extremities are without any evidence of infection or vascular compromise. Constitutional Vital Signs, click to edit/add: Last Vital Signs Temp 97.9 F 10/26/23 15:23 Pulse 92 H 10/26/23 15:23 Resp 18 10/26/23 15:23 BP 144/68 H 10/26/23 15:23 Pulse Ox 98 10/26/23 15:23 Course Vital Signs Vital signs: Vital Signs Temperature 97.9 F 10/26/23 15:23 Pulse Rate 92 H 10/26/23 15:23 Respiratory Rate 18 10/26/23 15:23 Blood Pressure 144/68 H 10/26/23 15:23 Pulse Oximetry 98 10/26/23 15:23 Temperature 97.9 F 10/26/23 15:23 Pulse Rate 92 H 10/26/23 15:23 Respiratory Rate 18 10/26/23 15:23 Blood Pressure 144/68 H 10/26/23 15:23 Pulse Oximetry 98 10/26/23 15:23 MDM - Weakness MDM Narrative Medical decision making narrative: I have reviewed laboratory testing done as an outpatient from 2 days ago. I have decided to go ahead and repeat some lab and see if there is any downward trending. Fortunately her hemoglobin is improved BUN and creatinine are improved as well. Her chest x-ray does not show any indication of infectious process. Her urine does show white blood cells and she has had recurring problems in the past while under the care of the local urology group. Influenza and COVID testing are both negative. She was given some IV fluids. I do not believe she meets any necessary criteria for hospitalization at this time. Nonetheless I do want to start her on antibiotics. She is to make sure she follows up with her primary care doctor and urologist Discharge Plan Discharge Stand Alone Forms: Portal Instructions Chief Complaint: Weakness Clinical Impression: Urinary tract infection Patient Disposition: Home, Self-Care Time of Disposition Decision: 17:16 Prescriptions / Home Meds: No Action ferrous sulfate [FeroSul] 325 mg (65 mg iron) tablet 325 mg PO QDAY insulin lispro 100 unit/mL insulin pen 1 sliding scale dose SUBCUT QID pregabalin 150 mg capsule 150 mg PO Q8H ondansetron 4 mg tablet,disintegrating 4 mg PO Q4H PRN (Reason: nausea and vomiting) 3 Days Qty: 6 0RF ciprofloxacin HCl [Cipro] 500 mg tablet 500 mg PO BID Qty: 5 0RF hydrocodone-acetaminophen 7.5-325 mg tablet 1 tab PO Q8H PRN (Reason: pain) insulin glargine [Lantus Solostar U-100 Insulin] 100 unit/mL (3 mL) insulin pen 25 unit subcut QPM Additional Instructions: Continues to take plenty of fluids/Cipro twice a day for 7 days. Follow-up with local urologist early next week or return to emergency room for any problems Referrals: Latosha Olmstead NP [Primary Care Provider] - 1 week
--- NOTE | 2023-10-26 15:38 | XR_ITS ---
The [address] [address] Patient Name: AISLINN CARNES MRN: [id number] date: 1960 Sex: F Assigned Patient Location: ED.MAIN Current Patient Location: ED.MAIN Accession/Order Number: [id number] Exam Date: 10/26/2023 16:00 Report Date: 10/26/2023 16:27 At the request of: NELL PALMA Procedure: XR chest 1V EXAMINATION: XR chest 1V HISTORY: Cough COMPARISON: XR chest 07/07/2023 FINDINGS: LUNGS: Thin curvilinear opacity within left lung base; similar to prior study and favoring scarring. VASCULATURE: No increased pulmonary vasculature. PLEURA: No pneumothorax, effusion, or pleural thickening. CARDIAC: No cardiomegaly or cardiac silhouette abnormality. MEDIASTINUM: No visible mass or adenopathy. BONES: No fracture or visible bone lesion. OTHER: Negative. XR/XR chest 1V IMPRESSION: 1. No acute cardiopulmonary process. Stable chest. Electronically authenticated by: THANH DELVALLE Date: 10/26/2023 16:27
[2023-10-26] MEDS: 0.9 % SODIUM CHLORIDE 1,000 ML 1000 ML IV (15:48)
[2023-10-26 16:10] LABS: PCO2 VBG 44.7 mmHg (40.0-52.0); pH VBG 7.294 (7.330-7.430)
[2023-10-26 16:12] LABS: Basophils Percent Auto 0.6 % (0.2-2.0); Eosinophils Absolute Auto 0.2 10^3/uL (0.0-0.7); Eosinophils Percent Auto 2.3 % (0.9-7.0); Hematocrit 29.5 % (36.0-48.0); Immature Granulocytes Abs Auto 0.03 10^3/uL (0.00-0.03); Immature Granulocytes Pct Auto 0.5 % (0.0-0.5); Lymphocytes Absolute Auto 2.1 10^3/uL (1.2-3.8); Mean Corpuscular HGB Conc 30.5 g/dL (29.9-35.2); Mean Corpuscular Hemoglobin 23.9 pg (26.7-34.0); Mean Corpuscular Volume 78.2 fL (81.0-99.0); Mean Platelet Volume 11.2 fL (9.5-13.5); Monocytes Absolute Auto 0.5 10^3/uL (0.3-0.8); Monocytes Percent Auto 7.6 % (1.7-12.0); Neutrophils Absolute Auto 3.7 10^3/uL (1.4-6.5); Platelet Count 356 10^3/uL (150-450); Red Blood Count 3.77 10^6/uL (4.20-5.40); Red Cell Distribution Width 14.4 % (11.0-15.0); White Blood Count 6.4 10^3/uL (4.0-11.0)
[2023-10-26 16:21] LABS: Bilirubin Urine NEGATIVE (NEGATIVE); Blood Urine SMALL (NEGATIVE); Clarity Urine SL CLOUDY (CLEAR); Glucose Urine UA >=1000 mg/dL (NEGATIVE); Ketones Urine NEGATIVE (NEGATIVE); Leukocyte Esterase Urine MODERATE (NEGATIVE); Nitrite Urine NEGATIVE (NEGATIVE); Protein Urine 30 mg/dL (NEG/TRACE); Urobilinogen Urine 0.2 EU/dL (0.2-1.0); pH Urine 5.5 (5.0-9.0)
[2023-10-26 16:22] LABS: Color Urine LT YELLOW (YELLOW); Urine Microscopic Indicated YES
[2023-10-26 16:27] LABS: Bacteria Urine MODERATE #/HPF (NONE SEEN); WBC Urine 50-75 #/HPF (NONE SEEN)
[2023-10-26 16:28] LABS: Cast Seen? NONE SEEN #/LPF (NONE SEEN); Crystals Seen? None Seen #/HPF (None Seen); Mucus Urine NONE SEEN (NONE SEEN); Squamous Epithelial Cell Urine FEW #/LPF (NONE/RARE); Urine Culture Indicated YES
[2023-10-26 16:29] LABS: Lactate/Lactic Acid 0.9 mmol/L (0.4-2.0)
[2023-10-26 16:33] LABS: Anion Gap 8.4; BUN Creatinine Ratio 19.4; Calcium 9.4 mg/dL (8.5-10.1); Carbon Dioxide 22.9 mmol/L (21.0-32.0); Chloride 102 mmol/L (98-107); Estimated GFR (African America 26 (>=60); Estimated GFR (Non-African Ame 21 (>=60); Glucose 305 mg/dL (74-106); Potassium 5.3 mmol/L (3.5-5.1); Sodium 128 mmol/L (136-145); Troponin I High Sensitivity <4.0 pg/mL (4.0-51.3)
[2023-10-26 16:53] LABS: Influenza Virus A Antigen Negative; Influenza Virus B Antigen Negative; Internal Control Within Normal Limits; SARS-CoV-2 Ag NEGATIVE (NEGATIVE)
== END 2023-10-26 17:32 | disposition home or self-care (01) ==
PROVIDERS: Emergency Provider Emergency Medicine Emergency Medical Services; PCP Nurse Practitioner
DX: N39.0 Urinary tract infection, site not specified (principal); E11.51 Type 2 diabetes mellitus with diabetic peripheral angiopathy without gangrene; R32 Unspecified urinary incontinence; Z20.822 Contact with and (suspected) exposure to COVID-19; Z87.440 Personal history of urinary (tract) infections; Z79.899 Other long term (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; Z79.4 Long term (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
CPT/HCPCS: 36415; 71045; 80048; 81001; 82800; 83605; 84484; 85025; 87040; 87086; 87150; 87186; 87804; 87811; 99285

== ENCOUNTER 2023-10-30 13:24 | Outpatient (OUT) | payer MEDICARE, SELFPAY | END 2023-10-30 13:25 | disposition home or self-care (01) | LOC: WC 13:24 | PROVIDERS: PCP Nurse Practitioner; Visit Provider Physician Assistant | DX: E11.622 Type 2 diabetes mellitus with other skin ulcer (principal); L97.822 Non-pressure chronic ulcer of other part of left lower leg with fat layer exposed | CPT/HCPCS: 29445 ==

== ENCOUNTER 2023-11-02 10:24 | Outpatient (OUT) | payer MEDICARE, SELFPAY ==
[2023-11-02 10:44] LABS: Basophils Absolute Auto 0.1 10^3/uL (0.0-0.1); Basophils Percent Auto 0.9 % (0.2-2.0); Eosinophils Absolute Auto 0.2 10^3/uL (0.0-0.7); Eosinophils Percent Auto 2.8 % (0.9-7.0); Hematocrit 32.8 % (36.0-48.0); Hemoglobin 9.1 g/dL (12.0-16.0); Immature Granulocytes Abs Auto 0.12 10^3/uL (0.00-0.03); Immature Granulocytes Pct Auto 2.1 % (0.0-0.5); Lymphocytes Absolute Auto 1.8 10^3/uL (1.2-3.8); Lymphocytes Percent Auto 31.2 % (20.5-60.0); Mean Corpuscular Hemoglobin 23.6 pg (26.7-34.0); Mean Platelet Volume 10.9 fL (9.5-13.5); Monocytes Absolute Auto 0.4 10^3/uL (0.3-0.8); Neutrophils Absolute Auto 3.2 10^3/uL (1.4-6.5); Platelet Count 293 10^3/uL (150-450); Red Blood Count 3.86 10^6/uL (4.20-5.40); Red Cell Distribution Width 14.5 % (11.0-15.0); White Blood Count 5.7 10^3/uL (4.0-11.0)
[2023-11-02 11:01] LABS: Alanine Aminotransferase 10 U/L (14-59); Albumin Globulin Ratio 0.4; Albumin Level 2.5 g/dL (3.4-5.0); Alkaline Phosphatase 83 U/L (46-116); Anion Gap 15.5; Aspartate Amino Transferase 10 U/L (15-37); BUN Creatinine Ratio 16.1; Bilirubin Total 0.2 mg/dL (0.2-1.0); Calcium 8.6 mg/dL (8.5-10.1); Carbon Dioxide 20.1 mmol/L (21.0-32.0); Chloride 101 mmol/L (98-107); Estimated GFR (African America 27 (>=60); Estimated GFR (Non-African Ame 22 (>=60); Globulin 5.6 g/dL; Glucose 334 mg/dL (74-106); Potassium 5.6 mmol/L (3.5-5.1); Sodium 131 mmol/L (136-145); Total Protein 8.1 g/dL (6.4-8.2)
[2023-11-02 11:21] LABS: Mean Corpuscular HGB Conc 27.7 g/dL (29.9-35.2)
== END 2023-11-02 10:25 | disposition home or self-care (01) ==
LOC: LAB 10:27
PROVIDERS: PCP Nurse Practitioner; Visit Provider Nurse Practitioner
DX: N18.31 Chronic kidney disease, stage 3a (principal); D50.9 Iron deficiency anemia, unspecified
CPT/HCPCS: 36415; 80053; 82607; 82728; 83540; 85025

== ENCOUNTER 2023-11-07 15:15 | Outpatient (OUT) | payer MEDICARE, SELFPAY | END 2023-11-07 15:16 | disposition home or self-care (01) | LOC: WC 15:15 | PROVIDERS: PCP Nurse Practitioner; Visit Provider Podiatrist Foot & Ankle Surgery | DX: E11.622 Type 2 diabetes mellitus with other skin ulcer (principal); L97.822 Non-pressure chronic ulcer of other part of left lower leg with fat layer exposed | CPT/HCPCS: G0463 ==

== ENCOUNTER 2023-11-16 11:49 | Outpatient (OUT) | payer MEDICARE, SELFPAY ==
[2023-11-16 12:13] LABS: Bilirubin Urine NEGATIVE (NEGATIVE); Blood Urine TRACE-I (NEGATIVE); Clarity Urine CLEAR (CLEAR); Color Urine LT. YELLOW (YELLOW); Glucose Urine UA 500 mg/dL (NEGATIVE); Ketones Urine NEGATIVE (NEGATIVE); Leukocyte Esterase Urine MODERATE (NEGATIVE); Nitrite Urine NEGATIVE (NEGATIVE); Protein Urine NEGATIVE (NEG/TRACE); Urobilinogen Urine 0.2 EU/dL (0.2-1.0)
[2023-11-16 12:15] LABS: Urine Microscopic Indicated YES
[2023-11-16 12:22] LABS: Bacteria Urine TRACE #/HPF (NONE SEEN); Cast Seen? NONE SEEN #/LPF (NONE SEEN); Crystals Seen? None Seen #/HPF (None Seen); Mucus Urine NONE SEEN (NONE SEEN); Squamous Epithelial Cell Urine FEW #/LPF (NONE/RARE); WBC Urine 20-50 #/HPF (NONE SEEN)
[2023-11-16 12:23] LABS: Urine Culture Indicated ALREADY ORDERED
[2023-11-16 13:27] LABS: Anion Gap 15.3; BUN Creatinine Ratio 14.7; Calcium 8.6 mg/dL (8.5-10.1); Chloride 102 mmol/L (98-107); Estimated GFR (African America 25 (>=60); Estimated GFR (Non-African Ame 20 (>=60); Glucose 447 mg/dL (74-106); Potassium 5.3 mmol/L (3.5-5.1); Sodium 135 mmol/L (136-145)
== END 2023-11-16 11:50 | disposition home or self-care (01) ==
LOC: LAB 11:52
PROVIDERS: PCP Nurse Practitioner; Visit Provider Nurse Practitioner
DX: R39.9 Unspecified symptoms and signs involving the genitourinary system (principal); N39.46 Mixed incontinence; N18.31 Chronic kidney disease, stage 3a
CPT/HCPCS: 36415; 80048; 81001; 87086; 87150; 87186

== ENCOUNTER 2023-12-01 07:23 | Outpatient (RCR) | payer MEDICARE, SELFPAY | END 2023-12-19 23:59 | disposition home or self-care (01) | LOC: INF 07:23 | PROVIDERS: PCP Nurse Practitioner; Visit Provider Nurse Practitioner | DX: M81.0 Age-related osteoporosis without current pathological fracture (principal) ==

== ENCOUNTER 2023-12-18 16:25 | Outpatient (OUT) | payer MEDICARE, SELFPAY | END 2023-12-18 16:26 | disposition home or self-care (01) | LOC: WC 16:25 | PROVIDERS: PCP Nurse Practitioner; Visit Provider Physician Assistant | DX: E11.621 Type 2 diabetes mellitus with foot ulcer (principal); L97.522 Non-pressure chronic ulcer of other part of left foot with fat layer exposed | CPT/HCPCS: G0463 ==

== ENCOUNTER 2023-12-26 12:03 | Outpatient (OUT) | payer SELFPAY ==
[2023-12-26 12:30] LABS: BUN Creatinine Ratio 19.9; Calcium 9.2 mg/dL (8.5-10.1); Carbon Dioxide 24.5 mmol/L (21.0-32.0); Chloride 106 mmol/L (98-107); Estimated GFR (African America 38 (>=60); Estimated GFR (Non-African Ame 31 (>=60); Glucose 206 mg/dL (74-106); Potassium 5.5 mmol/L (3.5-5.1); Sodium 137 mmol/L (136-145)
== END 2023-12-26 12:04 | disposition home or self-care (01) ==
LOC: LAB 12:05
PROVIDERS: PCP Nurse Practitioner; Visit Provider Nurse Practitioner
DX: N18.30 Chronic kidney disease, stage 3 unspecified (principal); E11.65 Type 2 diabetes mellitus with hyperglycemia; Z79.4 Long term (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
CPT/HCPCS: 36415; 80048

== ENCOUNTER 2024-01-04 08:32 | Emergency (ER) | payer MEDICARE, SELFPAY ==
[2024-01-04 08:39] VITALS: BP 192/100; PULSE 83; TEMP 36.6; O2SAT 98; BMI 24.4
[2024-01-04 09:11] LABS: Basophils Absolute Auto 0.1 10^3/uL (0.0-0.1); Basophils Percent Auto 0.5 % (0.2-2.0); Eosinophils Absolute Auto 0.1 10^3/uL (0.0-0.7); Eosinophils Percent Auto 1.3 % (0.9-7.0); Hemoglobin 10.7 g/dL (12.0-16.0); Immature Granulocytes Abs Auto 0.03 10^3/uL (0.00-0.03); Immature Granulocytes Pct Auto 0.3 % (0.0-0.5); Lymphocytes Absolute Auto 2.1 10^3/uL (1.2-3.8); Lymphocytes Percent Auto 19.7 % (20.5-60.0); Mean Corpuscular HGB Conc 30.6 g/dL (29.9-35.2); Mean Corpuscular Hemoglobin 24.2 pg (26.7-34.0); Mean Corpuscular Volume 79.2 fL (81.0-99.0); Mean Platelet Volume 10.7 fL (9.5-13.5); Monocytes Absolute Auto 0.6 10^3/uL (0.3-0.8); Monocytes Percent Auto 5.6 % (1.7-12.0); Neutrophils Absolute Auto 7.8 10^3/uL (1.4-6.5); Neutrophils Percent Auto 72.6 % (43.0-75.0); Platelet Count 244 10^3/uL (150-450); Red Blood Count 4.42 10^6/uL (4.20-5.40); Red Cell Distribution Width 16.6 % (11.0-15.0); White Blood Count 10.8 10^3/uL (4.0-11.0)
[2024-01-04 09:12] LABS: Bilirubin Urine NEGATIVE (NEGATIVE); Blood Urine LARGE (NEGATIVE); Clarity Urine CLEAR (CLEAR); Color Urine LT. YELLOW (YELLOW); Glucose Urine UA 100 mg/dL (NEGATIVE); Ketones Urine NEGATIVE (NEGATIVE); Leukocyte Esterase Urine SMALL (NEGATIVE); Nitrite Urine NEGATIVE (NEGATIVE); Protein Urine >=300 mg/dL (NEG/TRACE); Specific Gravity Urine 1.015 (1.005-1.025); Urobilinogen Urine 0.2 EU/dL (0.2-1.0)
[2024-01-04 09:13] LABS: Urine Microscopic Indicated YES
[2024-01-04 09:18] LABS: Bacteria Urine TRACE #/HPF (NONE SEEN); Cast Seen? NONE SEEN #/LPF (NONE SEEN); Crystals Seen? None Seen #/HPF (None Seen); Mucus Urine NONE SEEN (NONE SEEN); Squamous Epithelial Cell Urine NONE SEEN #/LPF (NONE/RARE)
[2024-01-04 09:20] LABS: Urine Culture Indicated YES
[2024-01-04 09:29] LABS: Alanine Aminotransferase 16 U/L (14-59); Albumin Globulin Ratio 0.6; Albumin Level 3.2 g/dL (3.4-5.0); Alkaline Phosphatase 93 U/L (46-116); Anion Gap 14.6; Aspartate Amino Transferase 15 U/L (15-37); BUN Creatinine Ratio 22.4; Bilirubin Total 0.3 mg/dL (0.2-1.0); Calcium 9.1 mg/dL (8.5-10.1); Chloride 103 mmol/L (98-107); Estimated GFR (African America 30 (>=60); Estimated GFR (Non-African Ame 25 (>=60); Globulin 5.2 g/dL; Glucose 201 mg/dL (74-106); Potassium 5.6 mmol/L (3.5-5.1); Sodium 135 mmol/L (136-145); Total Protein 8.4 g/dL (6.4-8.2)
--- NOTE | 2024-01-04 09:50 | ED.GENADUL1 ---
HPI HPI - General Adult General Chief complaint: Abdominal Pain Stated complaint: uti complaints Time Seen by Provider: 01/04/24 08:36 Source: patient Mode of arrival: walk-in Limitations: no limitations History of Present Illness HPI narrative: This patient is here complaining of primarily frequency and urgency of urination. She has had frequent UTIs in the past and is scheduled to have a sling procedure she has not had fever shakes or chills. No rigors. She is taking AZO nnly-oez-gnoyrsl but no recent antibiotics. She Head: Hysterectomy and cholecystectomy. Her pain is in the midline. She also has some discomfort in the lower back area. She has not had diarrhea or any change in her bowel habits just the urinary symptomatology. Her sugars been running a little than usual. Related Data Home Medications ?Medication ?Instructions ?Recorded ?Confirmed insulin lispro 100 unit/mL 1 sliding scale dose subcut QID 05/12/23 12/01/23 subcutaneous pen pregabalin 150 mg capsule 150 mg PO Q8H 05/12/23 01/04/24 hydrocodone 7.5 mg-acetaminophen 1 tab PO Q8H PRN pain 07/07/23 01/04/24 325 mg tablet insulin glargine 100 unit/mL (3 25 unit subcut QPM 07/07/23 01/04/24 mL) subcutaneous pen (Lantus Solostar U-100 Insulin) pregabalin .ROUTE 01/04/24 Previous Rx's ?Medication ?Instructions ?Recorded ondansetron 4 mg disintegrating 4 mg PO Q4H PRN nausea and 06/19/23 tablet vomiting 3 days #6 tabs Allergies Allergy/AdvReac Type Severity Reaction Status Date / Time latex Allergy Unknown Verified 01/04/24 08:42 Opioid HPI Opioid Management Most Recent Opioid Data: Last Pain Scale 5 06/24/23 02:29 PFSH PFSH Social History Smoking status: Never smoker Exam Narrative Exam Narrative: Awake alert does not appear ill or toxic her blood pressure is elevated we emphasized medication compliance for that. She does not have positive [place] sign. Her pain is in the lower lumbar area and is more of an achy musculoskeletal discomfort. Examination abdomen previous surgical incisions are noted. She has no discomfort in the right side of the abdomen or at McBurney's point. Slight discomfort to palpation in the suprapubic area but the bladder is not felt to be enlarged. There is no other abnormalities on the exam. Her trunk torso and extremities are normal. She has no respiratory complaints. Constitutional Vital Signs, click to edit/add: Last Vital Signs Temp 97.9 F 01/04/24 08:39 Pulse 83 01/04/24 08:39 Resp 20 01/04/24 08:39 BP 192/100 H 01/04/24 08:39 Pulse Ox 98 01/04/24 08:39 O2 Del Method Room Air 01/04/24 08:39 Course Vital Signs Vital signs: Vital Signs Temperature 97.9 F 01/04/24 08:39 Pulse Rate 83 01/04/24 08:39 Respiratory Rate 20 01/04/24 08:39 Blood Pressure 192/100 H 01/04/24 08:39 Pulse Oximetry 98 01/04/24 08:39 Oxygen Delivery Method Room Air 01/04/24 08:39 Temperature 97.9 F 01/04/24 08:39 Pulse Rate 83 01/04/24 08:39 Respiratory Rate 20 01/04/24 08:39 Blood Pressure 192/100 H 01/04/24 08:39 Pulse Oximetry 98 01/04/24 08:39 Oxygen Delivery Method Room Air 01/04/24 08:39 Medical Decision Making MDM Narrative Medical decision making narrative: This patient's urinalysis is strongly suggestive of cystitis. No indication of pyelonephritis or systemic disease. Will be important for her to continue increasing her fluids, will place her on Pyridium and Cipro. She is to follow-up with her primary care doctor Lab Data Labs: Lab Results 01/04/24 01/04/24 Range/Units 08:45 09:00 WBC 10.8 (4.0-11.0) 10^3/uL RBC 4.42 (4.20-5.40) 10^6/uL Hgb 10.7 L (12.0-16.0) g/dL Hct 35.0 L (36.0-48.0) % MCV 79.2 L (81.0-99.0) fL MCH 24.2 L (26.7-34.0) pg MCHC 30.6 (29.9-35.2) g/dL RDW 16.6 H (11.0-15.0) % Plt Count 244 (150-450) 10^3/uL MPV 10.7 (9.5-13.5) fL Neut % (Auto) 72.6 (43.0-75.0) % Lymph % (Auto) 19.7 L (20.5-60.0) % [place] % (Auto) 5.6 (1.7-12.0) % Eos % (Auto) 1.3 (0.9-7.0) % Baso % (Auto) 0.5 (0.2-2.0) % Neut # (Auto) 7.8 H (1.4-6.5) 10^3/uL Lymph # (Auto) 2.1 (1.2-3.8) 10^3/uL [place] # (Auto) 0.6 (0.3-0.8) 10^3/uL Eos # (Auto) 0.1 (0.0-0.7) 10^3/uL Baso # (Auto) 0.1 (0.0-0.1) 10^3/uL Abs Immat Gran (auto) 0.03 (0.00-0.03) 10^3/uL Imm/Tot Granulo (auto) 0.3 (0.0-0.5) % Sodium 135 L (136-145) mmol/L Potassium 5.6 H (3.5-5.1) mmol/L Chloride 103 (98-107) mmol/L Carbon Dioxide 23.0 (21.0-32.0) mmol/L Anion Gap 14.6 BUN 45.0 H (7.0-18.0) mg/dL Creatinine 2.01 H (0.55-1.02) mg/dL Est GFR ( Amer) 30 L (>=60) Est GFR (Non-Af Amer) 25 L (>=60) BUN/Creatinine Ratio 22.4 Glucose 201 H (74-106) mg/dL Calcium 9.1 (8.5-10.1) mg/dL Total Bilirubin 0.3 (0.2-1.0) mg/dL AST 15 (15-37) U/L ALT 16 (14-59) U/L Alkaline Phosphatase 93 (46-116) U/L Total Protein 8.4 H (6.4-8.2) g/dL Albumin 3.2 L (3.4-5.0) g/dL Globulin 5.2 g/dL Albumin/Globulin Ratio 0.6 Lipase 174.0 H (16.0-77.0) U/L Urine Color Lt. yellow (YELLOW) Urine Clarity Clear (CLEAR) Urine pH 7.0 (5.0-9.0) Ur Specific [place] 1.015 (1.005-1.025) Urine Protein >=300 A (NEG/TRACE) mg/dL Urine Glucose (UA) 100 A (NEGATIVE) mg/dL Urine Ketones Negative (NEGATIVE) mg/dL Urine Occult Blood Large A (NEGATIVE) Urine Nitrite Negative (NEGATIVE) Urine Bilirubin Negative (NEGATIVE) Urine Urobilinogen 0.2 (0.2-1.0) EU/dL Ur Leukocyte Esterase Small A (NEGATIVE) Urine RBC 5-10 A (0-2) #/HPF Urine WBC 10-20 A (NONE SEEN) #/HPF Ur Squamous Epith Cells None seen (NONE/RARE) #/LPF Urine Crystals None seen (None Seen) #/HPF Urine Bacteria Trace A (NONE SEEN) #/HPF Urine Casts None seen (NONE SEEN) #/LPF Urine Mucus None seen (NONE SEEN) Ur Culture Indicated? Yes Discharge Plan Discharge Stand Alone Forms: Portal Instructions Chief Complaint: Abdominal Pain Clinical Impression: Urinary tract infection Patient Disposition: Home, Self-Care Time of Disposition Decision: 09:52 Prescriptions / Home Meds: No Action insulin lispro 100 unit/mL insulin pen 1 sliding scale dose SUBCUT QID pregabalin 150 mg capsule 150 mg PO Q8H ondansetron 4 mg tablet,disintegrating 4 mg PO Q4H PRN (Reason: nausea and vomiting) 3 Days Qty: 6 0RF hydrocodone-acetaminophen 7.5-325 mg tablet 1 tab PO Q8H PRN (Reason: pain) insulin glargine [Lantus Solostar U-100 Insulin] 100 unit/mL (3 mL) insulin pen 25 unit subcut QPM pregabalin [Lyrica] .ROUTE Print Language: Surinamese Additional Instructions: Cipro/Pyridium/take plenty of fluids/recheck the urine with your primary care doctor Referrals: Latosha Olmstead NP [Primary Care Provider] - 1 week
== END 2024-01-04 10:24 | disposition home or self-care (01) ==
PROVIDERS: Emergency Provider Emergency Medicine Emergency Medical Services; PCP Nurse Practitioner
DX: N39.0 Urinary tract infection, site not specified (principal); Z87.440 Personal history of urinary (tract) infections; Z90.710 Acquired absence of both cervix and uterus; Z90.49 Acquired absence of other specified parts of digestive tract; Z79.4 Long term (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
CPT/HCPCS: 36415; 80053; 81001; 83690; 85025; 87086; 87150; 87186; 99283

== ENCOUNTER 2024-01-08 15:20 | Outpatient (OUT) | payer MEDICARE, SELFPAY | END 2024-01-08 15:21 | disposition home or self-care (01) | LOC: WC 15:21 | PROVIDERS: PCP Nurse Practitioner; Visit Provider Physician Assistant | DX: E11.621 Type 2 diabetes mellitus with foot ulcer (principal); L97.522 Non-pressure chronic ulcer of other part of left foot with fat layer exposed | CPT/HCPCS: 11042 ==

== ENCOUNTER 2024-01-10 12:02 | Observation (INO) | payer MEDICARE, SELFPAY ==
[2024-01-10] VITALS (36 sets, daily range): BP systolic 124–222; BP diastolic 72–110; PULSE 55–68; TEMP 36.3–37; O2SAT 94–99; BMI 22.5; BMI 25.5
--- NOTE | 2024-01-10 12:19 | ECG_ITS ---
The [facility] Test Date: 2024-01-10 Pat Name: AISLINN CARNES Department: Room: - Gender: Female Undercoater: : 1960 Requested By: AGUSTO LÓPEZ Order Number: [id number] Reading MD: MACK RAMSAY Measurements Intervals Whitt Rate: 61 P: 48 AK: 180 QRS: 49 QRSD: 82 T: 17 QT: 440 QTc: 443 Interpretive Statements 1100 Sinus rhythm 9110 normal ECG Compared to ECG 07/07/2023 09:25:01 No significant changes Electronically Signed On 01-10-2024 22:19:12 EDT by MACK RAMSAY
--- NOTE | 2024-01-10 12:19 | XR_ITS ---
The [address] [address] Patient Name: AISLINN CARNES MRN: [id number] date: 1960 Sex: F Assigned Patient Location: ER Current Patient Location: ER Accession/Order Number: [id number] Exam Date: 01/10/2024 12:34 Report Date: 01/10/2024 13:08 At the request of: IRVIN REYNOLDS Procedure: XR chest 1V EXAMINATION: XR chest 1V HISTORY: Hypertension COMPARISON: 10/26/2023 TECHNIQUE: AP portable erect FINDINGS: LUNGS: The right lung is clear. Mild left basilar linear infiltrate VASCULATURE: No increased pulmonary vasculature. PLEURA: No pneumothorax, effusion, or pleural thickening. CARDIAC: No cardiomegaly or cardiac silhouette abnormality. MEDIASTINUM: No visible mass or adenopathy. BONES: No fracture or visible bone lesion. OTHER: Negative. XR/XR chest 1V IMPRESSION: Minimal left basilar linear infiltrate, atelectasis favored over pneumonia Electronically authenticated by: NUBIA NICHOLSON Date: 01/10/2024 13:08
[2024-01-10] MEDS: HYDRALAZINE HCL 20 MG/ML VIAL 10 MG IVP (12:50)
[2024-01-10 12:51] LABS: Basophils Percent Auto 0.6 % (0.2-2.0); Eosinophils Absolute Auto 0.2 10^3/uL (0.0-0.7); Eosinophils Percent Auto 2.3 % (0.9-7.0); Hematocrit 35.3 % (36.0-48.0); Hemoglobin 10.9 g/dL (12.0-16.0); Immature Granulocytes Abs Auto 0.03 10^3/uL (0.00-0.03); Immature Granulocytes Pct Auto 0.5 % (0.0-0.5); Lymphocytes Absolute Auto 2.7 10^3/uL (1.2-3.8); Mean Corpuscular HGB Conc 30.9 g/dL (29.9-35.2); Mean Corpuscular Hemoglobin 24.5 pg (26.7-34.0); Mean Corpuscular Volume 79.3 fL (81.0-99.0); Mean Platelet Volume 10.7 fL (9.5-13.5); Monocytes Absolute Auto 0.4 10^3/uL (0.3-0.8); Monocytes Percent Auto 6.6 % (1.7-12.0); Neutrophils Absolute Auto 3.2 10^3/uL (1.4-6.5); Platelet Count 299 10^3/uL (150-450); Red Blood Count 4.45 10^6/uL (4.20-5.40); Red Cell Distribution Width 16.3 % (11.0-15.0); White Blood Count 6.5 10^3/uL (4.0-11.0)
[2024-01-10] MEDS: ONDANSETRON PF 4 MG/2 ML VIAL IV (13:05)
[2024-01-10 13:08] LABS: Alanine Aminotransferase 20 U/L (14-59); Albumin Globulin Ratio 0.6; Albumin Level 3.4 g/dL (3.4-5.0); Alkaline Phosphatase 98 U/L (46-116); Anion Gap 15.3; Aspartate Amino Transferase 18 U/L (15-37); BUN Creatinine Ratio 21.6; Bilirubin Total 0.3 mg/dL (0.2-1.0); Calcium 8.8 mg/dL (8.5-10.1); Carbon Dioxide 20.7 mmol/L (21.0-32.0); Chloride 106 mmol/L (98-107); Estimated GFR (African America 29 (>=60); Estimated GFR (Non-African Ame 24 (>=60); Globulin 5.5 g/dL; Glucose 159 mg/dL (74-106); Sodium 137 mmol/L (136-145); Total Protein 8.9 g/dL (6.4-8.2)
--- NOTE | 2024-01-10 13:08 | ED.GENADUL1 ---
HPI HPI - General Adult General Chief complaint: Dizziness Stated complaint: DIZZY Time Seen by Provider: 01/10/24 12:19 Source: patient and family Mode of arrival: walk-in Limitations: no limitations History of Present Illness HPI narrative: Patient presents to ED complaining of dizziness and elevated blood pressure. Patient states that she was at on Monday and became very weak and nearly collapsed. She talked to her doctor and they told her to get to the emergency room. She started to feel better so she did not come in at that time. Today she was headed to [place] for doctor's appointment and started to become dizzy and nauseated and checked her blood pressure at home and it was elevated. She came into ED for further evaluation. She is extensive family history of cardiac issues and she has a personal history of mitral valve prolapse but no other cardiac issues personally. Her blood pressure is reading over 200 systolic and over 100 diastolic. She reports that her vision is slightly blurry and that she has been dizzy. She denies chest pain. She takes metoprolol for blood pressure and reports that she does deal with high blood pressure sometimes but this is pretty elevated for her. She is alert and oriented at this time in no acute distress Related Data Home Medications ?Medication ?Instructions ?Recorded ?Confirmed insulin lispro 100 unit/mL 1 sliding scale dose subcut QID 05/12/23 01/10/24 subcutaneous pen pregabalin 150 mg capsule 150 mg PO Q8H 05/12/23 01/10/24 hydrocodone 7.5 mg-acetaminophen 1 tab PO Q8H PRN pain 07/07/23 01/10/24 325 mg tablet insulin glargine 100 unit/mL (3 25 unit subcut QPM 07/07/23 01/10/24 mL) subcutaneous pen (Lantus Solostar U-100 Insulin) pregabalin .ROUTE 01/04/24 acyclovir 400 mg tablet mg 01/10/24 Previous Rx's ?Medication ?Instructions ?Recorded ondansetron 4 mg disintegrating 4 mg PO Q4H PRN nausea and 06/19/23 tablet vomiting 3 days #6 tabs Allergies Allergy/AdvReac Type Severity Reaction Status Date / Time latex Allergy Unknown Verified 01/04/24 08:42 Opioid HPI Opioid Management Most Recent Opioid Data: Last Pain Scale 5 11/04/23 02:29 Review of Systems ROS Status of ROS 10 or more systems reviewed and unremarkable except as noted in history and below [facility] PFS Social History Smoking status: Never smoker Exam Narrative Exam Narrative: Time Seen: [] Vital Signs: [Per nurse's notes.] General: [Alert]Hypertensive Skin: [Warm, dry, no rash.] Head: [Normocephalic, atraumatic.] Neck: [Supple, trachea midline.] Eye: [Pupils are equal, round and reactive to light, extraocular movements are intact, normal conjunctiva.] Ears, nose, mouth and throat: oral mucosa moist. Cardiovascular: [Regular rate and rhythm, no murmur.] Respiratory: [Lungs are clear to auscultation, respirations are non-labored, breath sounds are equal.] Chest wall: [No tenderness, no deformity.] Gastrointestinal: [Soft, nontender, non distended, normal bowel sounds.] MSK: 5 out of 5 muscle strength x 4 extremities no calf pain or edema Lymphatics: [No lymphadenopathy.] Psychiatric: [Cooperative, appropriate mood & affect.] Neurological: [Alert and oriented to person, place, time, and situation, no focal neurological deficit observed.] Constitutional Vital Signs, click to edit/add: Last Vital Signs Temp 97.7 F 01/10/24 12:13 Pulse 62 01/10/24 12:23 Resp 15 01/10/24 12:23 BP 222/110 H 01/10/24 12:13 Pulse Ox 99 01/10/24 12:13 O2 Del Method Room Air 01/10/24 12:13 Course Vital Signs Vital signs: Vital Signs Temperature 97.7 F 01/10/24 12:13 Pulse Rate 65 01/10/24 12:13 Respiratory Rate 16 01/10/24 12:13 Blood Pressure 222/110 H 01/10/24 12:13 Pulse Oximetry 99 01/10/24 12:13 Oxygen Delivery Method Room Air 01/10/24 12:13 Temperature 97.7 F 01/10/24 12:13 Pulse Rate 62 01/10/24 12:23 Respiratory Rate 15 01/10/24 12:23 Blood Pressure 222/110 H 01/10/24 12:13 Pulse Oximetry 99 01/10/24 12:13 Oxygen Delivery Method Room Air 01/10/24 12:13 Medical Decision Making MDM Narrative Medical decision making narrative: Patient CT was nonacute. She has chronic renal insufficiency and her Creatinine is stable for her. CT does not show any acute stroke or hemorrhage. Patient's blood pressure did improve with hydralazine however she was still feeling lightheaded dizzy and nauseated. She did walk to the bathroom and the nurse said she was very unsteady on her feet and slightly ataxic. Given the fact that she has had severe hypertension and ataxia with weakness I think she needs to come into the hospital for further evaluation and care. I spoke to Dr. Marr who agrees and will admit the patient into the hospital. Patient and family are comfortable care plan for admit and she is stable in ED. Differential Diagnosis Differential Diagnosis: Hypertensive urgency, TIA, UTI, Aneurysm Lab Data Labs: Lab Results 01/10/24 Range/Units 12:39 WBC 6.5 (4.0-11.0) 10^3/uL RBC 4.45 (4.20-5.40) 10^6/uL Hgb 10.9 L (12.0-16.0) g/dL Hct 35.3 L (36.0-48.0) % MCV 79.3 L (81.0-99.0) fL MCH 24.5 L (26.7-34.0) pg MCHC 30.9 (29.9-35.2) g/dL RDW 16.3 H (11.0-15.0) % Plt Count 299 (150-450) 10^3/uL MPV 10.7 (9.5-13.5) fL Neut % (Auto) 49.0 (43.0-75.0) % Lymph % (Auto) 41.0 (20.5-60.0) % [place] % (Auto) 6.6 (1.7-12.0) % Eos % (Auto) 2.3 (0.9-7.0) % Baso % (Auto) 0.6 (0.2-2.0) % Neut # (Auto) 3.2 (1.4-6.5) 10^3/uL Lymph # (Auto) 2.7 (1.2-3.8) 10^3/uL [place] # (Auto) 0.4 (0.3-0.8) 10^3/uL Eos # (Auto) 0.2 (0.0-0.7) 10^3/uL Baso # (Auto) 0.0 (0.0-0.1) 10^3/uL Abs Immat Gran (auto) 0.03 (0.00-0.03) 10^3/uL Imm/Tot Granulo (auto) 0.5 (0.0-0.5) % Sodium 137 (136-145) mmol/L Potassium 5.0 (3.5-5.1) mmol/L Chloride 106 (98-107) mmol/L Carbon Dioxide 20.7 L (21.0-32.0) mmol/L Anion Gap 15.3 BUN 45.0 H (7.0-18.0) mg/dL Creatinine 2.08 H (0.55-1.02) mg/dL Est GFR ( Amer) 29 L (>=60) Est GFR (Non-Af Amer) 24 L (>=60) BUN/Creatinine Ratio 21.6 Glucose 159 H (74-106) mg/dL Calcium 8.8 (8.5-10.1) mg/dL Total Bilirubin 0.3 (0.2-1.0) mg/dL AST 18 (15-37) U/L ALT 20 (14-59) U/L Alkaline Phosphatase 98 (46-116) U/L Troponin I High Sens 7.2 (4.0-51.3) pg/mL Total Protein 8.9 H (6.4-8.2) g/dL Albumin 3.4 (3.4-5.0) g/dL Globulin 5.5 g/dL Albumin/Globulin Ratio 0.[address] scan - head: Radiologist's impression: ITS Impressions Chest X-Ray 01/10/24 12:19 IMPRESSION: Minimal left basilar linear infiltrate, atelectasis favored over pneumonia Electronically authenticated by: NUBIA NICHOLSON Date: 01/10/2024 13:[address] 01/10/24 13:16 IMPRESSION: No acute intracranial process. Electronically authenticated by: TNI TABOR Date: 01/10/2024 13:41 ECG Data Attestation: I personally reviewed and interpreted this ECG as follows: Interpretation: EKG INTERPRETATION Time: []1223 Rate: []61 Rhythm: _ []Normal sinus rhythm ST segments: _ [] T waves: _ [] Ectopy: _ [] P wave/AZ interval: _ [] QRS interval: _ [] QT interval: _ [] Comparison: _ [] Comparison EKG date: [] Performed by: [self]Inverted T wave in lead III otherwise no acute ST elevation or depression Discharge Plan Discharge Chief Complaint: Dizziness Clinical Impression: Chronic renal insufficiency, HTN (hypertension) Patient Disposition: Admitted As Inpatient Time of Disposition Decision: 14:27 Condition: Fair Prescriptions / Home Meds: No Action insulin lispro 100 unit/mL insulin pen 1 sliding scale dose SUBCUT QID pregabalin 150 mg capsule 150 mg PO Q8H acyclovir 400 mg tablet ondansetron 4 mg tablet,disintegrating 4 mg PO Q4H PRN (Reason: nausea and vomiting) 3 Days Qty: 6 0RF hydrocodone-acetaminophen 7.5-325 mg tablet 1 tab PO Q8H PRN (Reason: pain) insulin glargine [Lantus Solostar U-100 Insulin] 100 unit/mL (3 mL) insulin pen 25 unit subcut QPM pregabalin [Lyrica] .ROUTE Print Language: Marshallese Referrals: Latosha Olmstead CLAIM SPECIALIST [Primary Care Provider] - 1 week
[2024-01-10 13:10] LABS: Troponin I High Sensitivity 7.2 pg/mL (4.0-51.3)
--- NOTE | 2024-01-10 13:16 | CT_ITS ---
The [address] [address] Patient Name: AISLINN CARNES MRN: [id number] date: 1960 Sex: F Assigned Patient Location: ER Current Patient Location: ER Accession/Order Number: [id number] Exam Date: 01/10/2024 13:13 Report Date: 01/10/2024 13:41 At the request of: IRVIN REYNOLDS Procedure: CT head/brain wo con EXAM: CT head/brain wo con HISTORY: Hypertension, dizziness COMPARISON: CT head 07/07/2023. TECHNIQUE: Axial noncontrast CT imaging of the head was performed with coronal and sagittal reformats. This CT exam was performed using one or more of the following dose reduction techniques: Automated exposure control, adjustment of the MA and/or kV according to patient size, or use of iterative reconstruction technique. FINDINGS: Calvarium/skull base: No evidence of acute fracture or destructive lesion. Mastoids and middle ears demonstrate no substantial mucosal disease. Paranasal sinuses: No air fluid levels. Brain: No acute intracranial hemorrhage. No acute large vascular territory infarct. No mass lesion or mass effect. No hydrocephalus. CT/CT head/brain wo con IMPRESSION: No acute intracranial process. Electronically authenticated by: TIN TABOR Date: 01/10/2024 13:41
[2024-01-10 14:40] LABS: Lactate/Lactic Acid 0.4 mmol/L (0.4-2.0)
--- NOTE | 2024-01-10 16:47 | US_ITS ---
The [address] [address] Patient Name: AISLINN CARNES MRN: [id number] date: 1960 Sex: F Assigned Patient Location: MS Current Patient Location: MS Accession/Order Number: [id number] Exam Date: 01/10/2024 19:00 Report Date: 01/11/2024 07:34 At the request of: TRENT CHASE Procedure: US renal doppler EXAM: US renal doppler HISTORY: Uncontrolled HTN/ANATOLIY COMPARISON: None. TECHNIQUE: Grayscale and color ultrasound FINDINGS: The right kidney measures 10.4 x 4.1 x 6.3 cm. The cortex is lobular. The cortex measures 1.0 cm. Increased cortical echotexture. No solid cortical mass. Moderate to severe right hydroureteronephrosis. 2 mm echogenic focus, nonobstructing nephrolith. The left kidney measures 10.0 x 4.0 x 4.7 cm. The cortex measures 1.4 cm. Moderate hydronephrosis. Suspected increase in cortical echotexture. No solid cortical mass. The urinary bladder volume is 425 mL. Right kidney PSV: Proximal renal artery: 68 cm/s Mid renal artery: 46 cm/s Distal renal artery: 51 cm/s Arcuate arteries: 19 to 27 cm/s Left kidney PSV: Proximal renal artery: 73 cm/s Mid renal artery 143 cm/s Distal renal artery: 69 cm/s Arcuate arteries: 27 to 39 cm/s Aorta PSV: 83 cm/s US/US renal doppler IMPRESSION: Mildly increased renal cortical echotexture, consider medical renal disease Moderate to severe right and moderate left hydronephrosis of unknown etiology Elevated flow velocity left mid renal artery, which could result in renovascular hypertension Electronically authenticated by: NUBIA NICHOLSON Date: 01/11/2024 07:34
--- NOTE | 2024-01-10 17:08 | P.HP_ITS ---
HPI H&P: HPI History of Present Illness Chief complaint: DIZZY, Ataxia, Hypertension, Weakness Narrative: 01/10/24 1640 This is a 63-year-old female patient with a past medical history as outlined below including poorly controlled DM2, frequent UTIs, hypertension, and CKD 3/4; who presented to the ED today complaining of sudden onset of dizziness, ataxia, and nausea. The patient reports waking up feeling her usual self, she was sitting on the couch when she suddenly felt like my head was going to explode . She began to monitor her blood pressure and it was rising higher and higher and she presented to the ED for further evaluation. 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 The patient was treated with hydralazine in the ED and her blood pressure began to drop appropriately although not yet to goal. A CXR and CT head were both unremarkable. As the patient was continuing to feel dizzy and unsteady she was admitted to the hospitalist service in observation overnight. At the time of my exam the patient is resting in bed having just arrived to the medical floor. She continues to complain of a headache and ringing in her ears. She feels better than on arrival to the ED. The patient is a poor historian and does not give a clear course of events. Her granddaughter was on the telephone during my exam and notes that the patient's blood pressure had been well-controlled until the last 2-3 months. The patient also reports that she had a mass removed from her left kidney at [facility] before [place]. The patient does not know if that mass was cancerous or not and she has not followed up with the [facility] as she was directed. She also notes frequent UTIs and just completed a course of antibiotics for another UTI. She notes that her PCP just recently increased her metoprolol succinate from 25 mg to 50 and she has been taking that as prescribed. It is unknown what other workup has been done for her hypertension. Will obtain a renal artery duplex study to rule out renal artery stenosis as a contributing factor. We will also add amlodipine to her medical regimen in an attempt to improve her blood pressures further. Otherwise the patient has been informed that she needs to follow-up as an outpatient with her previous providers, especially [facility] regarding her renal mass. Opioid HPI Opioid Management Most Recent Opioid Data: Last Pain Scale 0 01/10/24 13:18 Last ED Pain Assessment 01/10/24 13:18 Last ORT Total Score 0 01/10/24 16:05 Last ORT Risk Category Low Risk 01/10/24 16:05 Review of Systems ROS Status of ROS 10 or more systems reviewed and unremark able except as noted in history and below PFS PFS Medical History (Updated 01/10/24 @ 17:19 by Suzy Bruce NP) Neuropathy ?G62.9 - Polyneuropathy, unspecified (ICD-10) DM2 (diabetes mellitus, type 2) ?E11.9 - Type 2 diabetes mellitus without complications (ICD-10) Chronic renal insufficiency ?N18.9 - Chronic kidney disease, unspecified (ICD-10) Hyperglycemia due to diabetes mellitus ?E11.65 - Type 2 diabetes mellitus with hyperglycemia (ICD-10) Urinary tract infection ?N39.0 - Urinary tract infection, site not specified (ICD-10) HTN (hypertension) ?I10 - Essential (primary) hypertension (ICD-10) Stroke ?I63.9 - Cerebral infarction, unspecified (ICD-10) Lupus ?M32.9 - Systemic lupus erythematosus, unspecified (ICD-10) Arthritis ?M19.90 - Unspecified osteoarthritis, unspecified site (ICD-10) Fibromyalgia ?M79.7 - Fibromyalgia (ICD-10) Diabetes ?E11.9 - Type 2 diabetes mellitus without complications (ICD-10) Chronic kidney disease (CKD) ?N18.9 - Chronic kidney disease, unspecified (ICD-10) Neoplasm of kidney ?D49.519 - Neoplasm of unspecified behavior of unspecified kidney (ICD-10) Surgical History (Updated 01/10/24 @ 15:56 by Ashley Sanchez) Hx of neck surgery ?Z98.890 - Other specified postprocedural states (ICD-10) History of shoulder surgery ?Z98.890 - Other specified postprocedural states (ICD-10) History of hysterectomy ?Z90.710 - Acquired absence of both cervix and uterus (ICD-10) Family History (Updated 01/10/24 @ 15:58 by Ashley Sanchez) Brother Family history of CHF (congestive heart failure) Family history of myocardial infarction Father Family history of CHF (congestive heart failure) Family history of COPD (chronic obstructive pulmonary disease) Family history of myocardial infarction Sister Family history of cancer Grandmother Family history of cancer Family history of diabetes mellitus Social History (Updated 01/10/24 @ 16:00 by Ashley Sanchez) Within the past year, how often did you have a drink containing alcohol: never Score interpretation: A score less than 3 is consistent with normal alcohol consumption. Smoking status: Never smoker Non-prescribed substance use: denies use Highest level of school completed/degree received: GED or equivalent Are you now , , , , never or living with a partner: In a typical week, how many times do you talk on the telephone with family, friends, or neighbors: 3 or more times per week How often do you get together with friends or relatives: 3 or more times per week How often do you attend judaism or caodaism services: never Do you belong to any clubs or organizations such as judaism groups unions, [employer] or athletic groups, or school groups: no Total score: 1 Score interpretation: A score of less than or equal to 1 indicates the most socially isolated. Little interest or pleasure in doing things: several days Feeling down, depressed, or hopeless: several days Feel stressed/tense/nervous/anxious/difficulty sleeping: to some extent Life stressors: other Life stressor details: Personal health Meds Home Medications and Allergies Home Medications ?Medication ?Instructions ?Recorded ?Confirmed ?Type insulin lispro 100 unit/mL 1 sliding scale dose subcut QID 05/12/23 01/10/24 History subcutaneous pen pregabalin 150 mg capsule 150 mg PO Q8H 05/12/23 01/10/24 History ondansetron 4 mg disintegrating 4 mg PO Q4H PRN nausea and 06/19/23 01/10/24 Rx tablet vomiting 3 days #6 tabs hydrocodone 7.5 mg-acetaminophen 1 tab PO Q8H PRN pain 07/07/23 01/10/24 History 325 mg tablet insulin glargine 100 unit/mL (3 25 unit subcut QPM 07/07/23 01/10/24 History mL) subcutaneous pen (Lantus Solostar U-100 Insulin) ferrous sulfate 325 mg (65 mg 325 mg PO DAILY 01/10/24 01/10/24 History iron) tablet (FeroSul) metoprolol succinate 50 mg 50 mg PO DAILY 01/10/24 01/10/24 History tablet,extended release 24 hr Allergies Allergy/AdvReac Type Severity Reaction Status Date / Time latex Allergy Unknown Verified 01/04/24 08:42 Exam Constitutional Vital Signs, click to edit/add: Last Vital Signs Temp 97.4 F L 01/10/24 16:05 Pulse 60 01/10/24 16:10 Resp 16 01/10/24 16:05 BP 169/84 H 01/10/24 16:05 Pulse Ox 96 01/10/24 16:05 O2 Del Method Room Air 01/10/24 16:05 Common normals: no apparent distress, oriented x3, alert and well nourished General appearance: cooperative Orientation/consciousness: Yes awake HENMT Common normals: normocephalic, head/scalp atraumatic, hearing grossly normal bilaterally, external nose normal and moist oral mucous membranes Eye Common normals: PERRL, EOMs intact bilaterally, conjunctivae normal and no scleral icterus Alignment: alignment normal Eyelid: eyelids normal Neck & C-Spine Common normals: full ROM, supple and no JVD Chest Common normals: inspection of chest normal Chest: symmetrical chest wall rise Respiratory Common normals: normal respiratory effort, no retractions and no use of accessory muscles Effort & inspection: able to speak in complete sentences Auscultation: crackles (Faint, LLL) Cardio Common normals: no JVD, regular rate, regular rhythm, S1 normal heart sound, S2 normal heart sound, no gallops, no clicks, no murmurs, no rub and peripheral pulses 2+ throughout GI Common normals: Normal to inspection, nondistended, normoactive bowel sounds present, soft to palpation, non-tender, no hepatosplenomegaly, no masses and no bruits Bladder/kidney exam: bladder normal to palpation Back & Pelvis Common normals: thoracic and lumbar spine normal to inspection Extremity Common normals: normal capillary refill and no pedal edema General: normal exam except as noted; no clubbing and no cyanosis Neuro Guy Coma Scale: GCS not evaluated Common normals: CN's II-XII intact bilaterally, moves all extremities, no focal motor deficits and no sensory deficits noted Speech: speech normal Motor exam: strength 5/5 throughout Psych Common normals: mental status grossly normal, thought process normal, affect normal and activity/motor behavior normal Results Labs Labs: Short CBC 01/10/24 Range/Units 12:39 WBC 6.5 (4.0-11.0) 10^3/uL Hgb 10.9 L (12.0-16.0) g/dL Hct 35.3 L (36.0-48.0) % Plt Count 299 (150-450) 10^3/uL BMP 01/10/24 12:39 Sodium 137 Potassium 5.0 Chloride 106 Carbon Dioxide 20.7 L BUN 45.0 H Creatinine 2.08 H Glucose 159 H Calcium 8.8 Liver Function 01/10/24 Range/Units 12:39 Total Bilirubin 0.3 (0.2-1.0) mg/dL AST 18 (15-37) U/L ALT 20 (14-59) U/L Alkaline Phosphatase 98 (46-116) U/L Albumin 3.4 (3.4-5.0) g/dL Pulse Oximetry Attestation: I have reviewed the pertinent pulse oximetry results. Imaging CT scan - head: Attestation: I have reviewed the pertinent imaging results. Radiologist's impression: IMPRESSION: No acute intracranial process. Chest x-ray: Attestation: I have reviewed the pertinent imaging results. Radiologist's impression: IMPRESSION: Minimal left basilar linear infiltrate, atelectasis favored over pneumonia Assessment and Plan Assessment and Plan (1) Hypertensive urgency: Assessment and Plan: Acute * Adm observation * Unclear etiology of recent onset of uncontrolled HTN * Obtain renal artery duplex to r/o renal artery stenosis * Continue home metoprolol * Start amlodipine in the morning * PRN IVP Hydralazine for uncontrolled HTN * Tele monitoring * CBC, CMP daily (2) DM2 (diabetes mellitus, type 2): Assessment and Plan: Chronic * Poorly controlled w/ hyperglycemia in the ED * Obtain hgb A1C in AM * Continue home lantus 25 un at HS * ACHS glucometer checks * Med [facility] for glucose correction * Conider adding CHO coverage with meals pending clinical course (3) Chronic renal insufficiency: Assessment and Plan: Chronic * Renal function appears to be within her baseline range of CKD3b/4 * Unclear if renal carcinoma is present - pt encouraged to follow up with [facility] as soon as possible to review results after her L renal mass was removed * CMP daily (4) Neuropathy: Assessment and Plan: Chronic * Continue home gabapentin
[2024-01-10 17:37] LABS: Glucometer 183 mg/dL (74-106)
[2024-01-10 18:09] LABS: Bilirubin Urine NEGATIVE (NEGATIVE); Blood Urine NEGATIVE (NEGATIVE); Clarity Urine CLEAR (CLEAR); Color Urine LT. YELLOW (YELLOW); Glucose Urine UA NEGATIVE (NEGATIVE); Ketones Urine NEGATIVE (NEGATIVE); Leukocyte Esterase Urine TRACE (NEGATIVE); Nitrite Urine NEGATIVE (NEGATIVE); Protein Urine 30 mg/dL (NEG/TRACE); Urobilinogen Urine 0.2 EU/dL (0.2-1.0)
[2024-01-10 18:11] LABS: Urine Microscopic Indicated YES
[2024-01-10] MEDS: HYDROCODONE/ACET 5-325 MG TABLET 1.5 TAB PO (18:20)
[2024-01-10] MEDS: AMLODIPINE BESYLATE 5 MG TABLET PO (18:21)
[2024-01-10] MEDS: PREGABALIN 75 MG CAPSULE 150 MG PO (18:21)
[2024-01-10 18:27] LABS: Bacteria Urine TRACE #/HPF (NONE SEEN); Cast Seen? NONE SEEN #/LPF (NONE SEEN); Crystals Seen? None Seen #/HPF (None Seen); Mucus Urine NONE SEEN (NONE SEEN); RBC Urine 0-2 #/HPF (0-2); Squamous Epithelial Cell Urine RARE #/LPF (NONE/RARE); WBC Urine 0-2 #/HPF (NONE SEEN)
[2024-01-10 21:00] LABS: Glucometer 131 mg/dL (74-106)
[2024-01-11] VITALS (8 sets, daily range): BP systolic 159–170; BP diastolic 71–80; PULSE 54–63; TEMP 36.4–36.5; O2SAT 95–96
[2024-01-11 05:19] LABS: Basophils Percent Auto 0.8 % (0.2-2.0); Eosinophils Absolute Auto 0.2 10^3/uL (0.0-0.7); Hematocrit 34.1 % (36.0-48.0); Hemoglobin 10.4 g/dL (12.0-16.0); Immature Granulocytes Abs Auto 0.01 10^3/uL (0.00-0.03); Immature Granulocytes Pct Auto 0.2 % (0.0-0.5); Lymphocytes Absolute Auto 2.5 10^3/uL (1.2-3.8); Lymphocytes Percent Auto 50.4 % (20.5-60.0); Mean Corpuscular HGB Conc 30.5 g/dL (29.9-35.2); Mean Corpuscular Hemoglobin 24.3 pg (26.7-34.0); Mean Corpuscular Volume 79.7 fL (81.0-99.0); Mean Platelet Volume 10.6 fL (9.5-13.5); Monocytes Absolute Auto 0.4 10^3/uL (0.3-0.8); Monocytes Percent Auto 7.3 % (1.7-12.0); Neutrophils Absolute Auto 1.9 10^3/uL (1.4-6.5); Neutrophils Percent Auto 38.3 % (43.0-75.0); Platelet Count 284 10^3/uL (150-450); Red Blood Count 4.28 10^6/uL (4.20-5.40); Red Cell Distribution Width 16.7 % (11.0-15.0)
[2024-01-11 05:26] LABS: Estimated Average Glucose 232 mg/dL; Glycohemoglobin A1C 9.7 % (4.5-6.2)
[2024-01-11 05:38] LABS: Alanine Aminotransferase 23 U/L (14-59); Albumin Globulin Ratio 0.6; Albumin Level 2.8 g/dL (3.4-5.0); Alkaline Phosphatase 85 U/L (46-116); Anion Gap 10.8; Aspartate Amino Transferase 21 U/L (15-37); BUN Creatinine Ratio 20.3; Bilirubin Total 0.2 mg/dL (0.2-1.0); Calcium 8.7 mg/dL (8.5-10.1); Carbon Dioxide 23.2 mmol/L (21.0-32.0); Chloride 105 mmol/L (98-107); Estimated GFR (African America 31 (>=60); Estimated GFR (Non-African Ame 25 (>=60); Globulin 4.6 g/dL; Glucose 220 mg/dL (74-106); Sodium 134 mmol/L (136-145); Total Protein 7.4 g/dL (6.4-8.2)
--- OUTSIDE RECORDS SUMMARY | 2024-01-11 06:08 | XMS_ITS | CCD ---
Author Organization [facility] Care Team Providers Care [place] Hardware Installer Name Role Phone Pcp, No Primary Care Provider Unavailisidra e LATOSHA OLMSTEAD Primary Care Physician [phone] Eli Sprague Unavailable MARIBEL, CERTIFIED MEDICAL BILLER LATOSHA Attending Unavailable AICHHOLZ, CERTIFIED MEDICAL BILLER LATOSHA Consulting Unavailable AICHHOLZ, CERTIFIED MEDICAL BILLER LATOSHA Admitting Unavailable AICHHOLZ, CERTIFIED MEDICAL BILLER LATOSHA Primary Care Unavailable RAMON HUNTLEY Attending Unavailable RAMON HUNTLEY Admitting Unavailable REQUEST, DR PANDEY LISTED Primary Care Unavaila georgi DELVALLE, DR THANH García Consulting Unavailable RAMON HUNTLEY Consulting Unavailable RICHHOLZ, CERTIFIED MEDICAL BILLER LATOSHA Primary Care Unavailable RAMON HUNTLEY Admitting Unavailable RAMON HUNTLEY Attending Unavailable AICHHOLZ, CERTIFIED MEDICAL BILLER LATOSHA Primary Care Unavailable FAWWAD, AMADO H Consulting Unavailable FAWWAD, AMADO H Admitting Unavailable FAWWAD, AMADO H Attending Unavailable AICHHOLZ, CERTIFIED MEDICAL BILLER LATOSHA Consulting Unavailable AICHHOLZ, CERTIFIED MEDICAL BILLER LATOSHA Admitting Unavailable AICHHOLZ, CERTIFIED MEDICAL BILLER LATOSHA Attending Unavailable AICHHOLZ, CERTIFIED MEDICAL BILLER LATOSHA Primary Care Unavailable RAMON HUNTLEY Attending Unavailable AICHHOLZ, CERTIFIED MEDICAL BILLER LATOSHA Primary Care Unavailable RAMON HUNTLEY Admitting Unavailable BHARAT, DR NUBIA Carlos Consulting Unavailable RAMON HUNTLEY Consulting Unavailable AICHHOLZ, CERTIFIED MEDICAL BILLER LATOSHA Primary Care Unavailable BHARAT, DR NUBIA Carlos Consulting Unavailable DIANA SEGURA Admitting Unavailable DIANA SEGURA Attending Unavailable DIANA SEGURA Consulting Unavailable AICHHOLZ, CERTIFIED MEDICAL BILLER LATOSHA Primary Care Unavailable AICHHOLZ, CERTIFIED MEDICAL BILLER LATOSHA Attending Unavailable AICHHOLZ, CERTIFIED MEDICAL BILLER LATOSHA Admitting Unavailable WEST, DR NUBIA Carlos Consulting Unavailable AICHHOLZ, CERTIFIED MEDICAL BILLER LATOSHA Consulting Unavailable AICHHOLZ, CERTIFIED MEDICAL BILLER LATOSHA Primary Care Unavailable COLTON, DIANA Admitting Unavailable COLTON, DIANA Attending Unavailable COLTON, DIANA Consulting Unavailable AICHHOLZ, CERTIFIED MEDICAL BILLER LATOSHA Primary Care Unavailable AICHHOLZ, CERTIFIED MEDICAL BILLER LATOSHA Attending Unavailable AICHHOLZ, CERTIFIED MEDICAL BILLER LATOSHA Consulting Unavailable AICHHOLZ, CERTIFIED MEDICAL BILLER LATOSHA Admitting Unavailable AICHHOLZ, CERTIFIED MEDICAL BILLER LATOSHA Primary Care Unavailable WEST, DR NUBIA Carlos Consulting Unavailable COLTON, DIANA Admitting Unavailable COLTON, DIANA Attending Unavailable COLTON, DIANA Consulting Unavailable AICHHOLZ, CERTIFIED MEDICAL BILLER LATOSHA Primary Care Unavailable ZIEBER, DR THANH García Consulting Unavailable HIGHLANDER, RAMON Tillman Attending Unavailable HIGHLANDER, RAMON Tillman Admitting Unavailable HIGHLANDERRAMON Consulting Unavailable AICHHOLZ, CERTIFIED MEDICAL BILLER LATOSHA Primary Care Unavailable FOSTER ., DR PAGE Admitting Unavailable FOSTER ., DR PAGE Attending Unavailable FOSTER ., DR PAGE Consulting Unavailable ZIEBER, DR THANH García Consulting Unavailable WILLYANDER, PETER Primo Admitting Unavailable AICHHOLZ, CERTIFIED MEDICAL BILLER LATOSHA Primary Care Unavailable ZIEBER, DR THANH García Consulting Unavailable HIGHLANDER, PETER Primo Attending Unavailable HIGHLANDER PETER Primo Consulting Unavailable AICHHOLZ, CERTIFIED MEDICAL BILLER LATOSHA Primary Care Unavailable AICHHOLZ, CERTIFIED MEDICAL BILLER LATOSHA Attending Unavailable AICHHOLZ, CERTIFIED MEDICAL BILLER LATOSHA Consulting Unavailable AICHHOLZ, CERTIFIED MEDICAL BILLER LATOSHA Admitting Unavailable ZIEBER, DR THANH García Consulting Unavailable AICHHOLZ, CERTIFIED MEDICAL BILLER LATOSHA Primary Care Unavailable ZIEBER, DR THANH García Consulting Unavailable HIGHLANDER, RAMON Tillman Attending Unavailable HIGHLANDER PETER D Admitting Unavailable HIGHLANDERRAMON Consulting Unavailable AICHHOLZ, CERTIFIED MEDICAL BILLER LATOSHA Primary Care Unavailable ZIEBER, DR THANH García Consulting Unavailable COLTON, DIANA Admitting Unavailable COLTON, DIANA Attending Unavailable COLTON, DIANA Consulting Unavailable RAQUEL DERAS Admitting Unavailable RAQUEL DERAS Attending Unavailable KASIE CANDELARIO Consulting Unavailable REQUEST, DR PANDEY LISTED Primary Care Unavaila ble WANDY .RAQUEL Consulting Unavailable LYLE MATIAS Consulting Unavailable AICHHOLZ, CERTIFIED MEDICAL BILLER LATOSHA Primary Care Unavailable EARL ., DR CARMONA Admitting Unavailable EARL ., DR CARMONA Attending Unavailable EARL ., DR CARMONA Consulting Unavailable TONY LUO Consulting Unavailable NUBIA BATEMAN Consulting Unavailable AICHHOLZ, CERTIFIED MEDICAL BILLER LATOSHA Primary Care Unavailable HIGHLANDER, RAMON Tillman Admitting Unavailable HIGHLANDER, RAMON Tillman Attending Unavailable HIGHLANDER, RAMON Tillman Admitting Unavailable AICHHOLZ, CERTIFIED MEDICAL BILLER LATOSHA Primary Care Unavailable HIGHLANDER, RAMON Tillman Attending Unavailable HIGHLANDER, PETER D Admitting Unavailable AICHHOLZ, CERTIFIED MEDICAL BILLER LATOSHA Primary Care Unavailable ZIEBER, DR THANH García Consulting Unavailable HIGHLANDER, RAMON Tillman Attending Unavailable HIGHLANDER, RAMON Tillman Consulting Unavailable HIGHLANDER, RAMON Tillman Admitting Unavailable AICHHOLZ, CERTIFIED MEDICAL BILLER LATOSHA Primary Care Unavailable HIGHLANDER, RAMON Tillman Attending Unavailable HIGHLANDER, RAMON Tillman Attending Unavailable HIGHLANDER, PETER D Admitting Unavailable REQUEST, NONE LISTED Primary Care Unavaila ble HIGHLANDER, RAMON D Admitting Unavailable AICHHOLZ, CERTIFIED MEDICAL BILLER LATOSHA Primary Care Unavailable HIGHLANDER, RAMON Tillman Attending Unavailable HIGHLANDER, RAMON D Admitting Unavailable AICHHOLZ, CERTIFIED MEDICAL BILLER LATOSHA Primary Care Unavailable HIGHLANDER, RAMON Tillman Attending Unavailable HIGHLANDER, RAMON Tillman Attending Unavailable HIGHLANDER, PETER D Admitting Unavailable REQUEST, NONE LISTED Primary Care Unavaila georgi PALMA, DR NELL Salazar Attending Unavailabl e ADELIA, DR THANH García Consulting Unavailable REQUEST, NONE LISTED Primary Care Unavaila georgi PALMA, DR NELL Salazar Admitting Unavailabl e GRECHNY ., GIANNI PETIT Consulting Unavailabl e VIEIRA ., DR NENO Rodriguez Consulting Unavailable VIEIRA ., DR NENO Rodriguez Admitting Unavailable VIEIRA ., DR NENO Rodriguez Attending Unavailable REQUEST, NONE LISTED Primary Care Unavaila ble GRECHNY ., GIANNI PETIT Consulting Unavailabl e HIGHLANDER, PETER D Procedure Practitioner Unava TONY Cartagena Consulting Unavailable YUKO, RAMON Tillman Consulting Unavailable BRANDO, KWADWO Consulting Unavailable NUBIA BATEMAN Consulting Unavailable GURU DAVISON Consulting Unavailable LANDON IBARRA Consulting Unavailable ROSELIA ., LISA JIMENEZ Consulting Unavailable GEMBUS, ROCAEL Consulting Unavailable SMALLWOOD, REJI FLORES Consulting Unavailable AICHHOLZ, CERTIFIED MEDICAL BILLER LATOSHA Primary Care Unavailable WEST, DR NUBIA Carlos Consulting Unavailable DIANA SEGURA Admitting Unavailable DIANA SEGURA Attending Unavailable DIANA SEGURA Consulting Unavailable HIGHLANDER, RAMON Tillman Admitting Unavailable AICHHOLZ, CERTIFIED MEDICAL BILLER LATOSHA Primary Care Unavailable ZIIMTIAZ, DR THANH García Consulting Unavailable WILLYANDER, RAMON Tillman Attending Unavailable HIGHLANDER, RAMON Tillman Consulting Unavailable Fitayden Brigette Unavailable Mapus, Tondra Unavailable Lisa Porras MD Unavailable Latosha Olmstead Primary Care Provider TAURUS BALLARD Referring Unavailable TAURUS BALLARD Referring Unavailable AichholLatosha Calderon Primary Care Provider Lisa Porras MD Unavailable TAURUS BALLARD Attending Unavailable TAURUS BALLARD Attending Unavailable TAURUS BALLARD Admitting Unavailable Sumi Lentz Primary Care Unavailable Latosha Olmstead Attending Unavailable Latosha Olmstead Admitting Unavailable Lue, Lisa MIrina Referring Unavailable Lue, Lisa M. Admitting Unavailable Lue, Lisa MIrina Attending Unavailable PROMISE ARNOLD Attending Unavailab brayden CATALINAPROMISE CURIEL Admitting Unavailab le CATALINAPROMISE Attending Unavailab brayden CATALINAPROMISE Admitting Unavailab le CATALINA, PROMISE Rodriguez Attending Unavailab brayden CATALINAPROMISE Admitting Unavailab le CATALINA, PROMISE Rodriguez Attending Unavailab brayden CATALINAPROMISE CURIEL Attending Unavailab le LueLisa MIrina Attending Unavailable LueLisa MIrina Attending Unavailable LueLisa MIrina Attending Unavailable PROMISE ARNOLD Attending Unavailab le LATOSHA OLMSTEAD Attending Unavailable PROMISE ARNOLD Attending Unavailab le LueLisa MIrina Referring Unavailable Lue, Lisa MIrina Attending Unavailable PROMISE ARNOLD Attending Unavailab le LATOSHA OLMSTEAD Attending Unavailable SWETA LI Attending Unavailable LATOSHA OLMSTEAD Referring Unavailable RICHLATOSHA CASILLAS Primary Care Unavailable SWETA LI Attending Unavailable LATOSHA OLMSTEAD Referring Unavailable LATOSHA OLMSTEAD Primary Care Unavailable SWETA LI Referring Unavailable LATOSHA OLMSTEAD Primary Care Unavailable JOE PEDRO Admitting Unavailable JOE PEDRO Attending Unavailable LATOSHA OLMSTEAD Referring Unavailable LATOSHA OLMSTEAD Primary Care Unavailable JOE PEDRO Attending Unavailable JOE PEDRO Referring Unavailable LATOSHA OLMSTEAD Primary Care Unavailable JOE PEDRO Admitting Unavailable JOE PEDRO Attending Unavailable JOE PEDRO Referring Unavailable LATOSHA OLMSTEAD Primary Care Unavailable JOE PEDRO Attending Unavailable JOE PEDRO Referring Unavailable LATOSHA OLMSTEAD Primary Care Unavailable KATEY DIAMOND Attending Unavailable AICHHOLLATOSHA Salas Primary Care Unavailable AICHHOLZ, LATOSHA Attending Unavailable AICHHOLZ, LATOSHA Attending Unavailable AICHHOLZ, LATOSHA Attending Unavailable Allergies Allergy Classification Reported Allergen(s) Allergy Type Date of Onset Reaction(s) Facility Latex (1 source) Latex Substance Allergy 0 Rash [facility] (20 sources) Latex; Translations: [Latex] Allergy to substance 0 Eruption of skin (disorder), Rash [facility] Medications Current Medications Medication Drug Class(es) [...] on above: Take 2 tablets by mo [facility] every 6 hours as needed for pain. acetaminophen 325 mg / HYDROcodone bitartrate 7.5 mg oral tablet (20 sources) Opioid Agonist Start: 11-16-2023 take 1 tablet by mouth three times daily as needed for pain HYDROcodone-acetami nophen (NORCO) 7.5-325 mg per tablet Indications: Reflex sympathetic dystrophy of right upper extremity Take 1 tablet by mouth 3 (three) times a day as needed for pain. 90 tablet 0 11/16/2023 Active Start: 10-17-2023 End: 11-06-2023 take 1 tablet by mouth three times daily as needed for pain HYDROcodone-acetaminophen (NORCO) 7.5-32 5 mg per tablet Indications: Reflex sympathetic dystrophy of right upper extremity Take 1 tablet by mouth 3 (three) times a day as needed for pain. 90 tablet 0 10/17/2023 11/06/2023 Discontinued (Reorder) Start: 10-17-2023 take 1 tablet by rain th three [...] as needed. albuterol 0.83 mg/ml inhalation solution (12 sources) beta2-Adrenergic Agonist take 3 mL by [...] for wheezing/shortness of breath. AMBULATORY COMPOUNDED MEDICATION (3 sources) Start: 019 AMBULATORY COMPOUNDED MEDICATION Apply 120 g topically See Admin Instructions. Formula 8E Apply 1-2 grams topically to affected area three to four times daily 120 g 2 08/22/2018 Active amLODIPine 5 mg oral tablet (12 sources) Dihydropyridine Calcium Channel Renetta Start: 023 amLODIPine 5 mg Tab Refills(s) 0 Start Date: 09/08/22 Status: Ordered Budesonide / formoterol (4 sources) Corticosteroid, beta2-Adrenergic Agonist take 2 puff(s) [...] tablet (1 source) Quinolone Antimicrobial Start: 01-22-20 21 End: 01-28-20 21 take 1 tablet by mouth once daily ciprofloxacin HCl (CIPRO) 250 mg tablet Take 1 tablet by mouth once daily for 3 days. 3 tablet 0 01/21/2021 01/27/2021 Active Comment on above: Take 1 tablet by rain th once daily for 3 days. Dexcom G6 Sensor - (6 sources) Start: 10-19-20 23 Dexcom G6 Sensor - as directed SQ change q 10 days for 90 days May, Active Dexcom G6 Sensor - as directed SQ change q 10 days for 90 days Active Dexcom G6 Transmitter - (6 sources) Start: 06-08-2023 Dexcom G6 Maya smitter [...] above: Take 1 capsule by mo [facility] two times a day. estradiol 0.1 mg/ml vaginal cream (7 sources) Estrogen Start: 05-03-2023 Estrace 0.1 mg /g Cream See Instructions, 42.5 gm, Refill(s) 3, apply pea size amount to urethra/inner vagina 3x/week x 1 month, then 2x/week for maintainence, [id number], 153, cm, 05/03/23 9:52:00 EDT, Height/Length Dosing, 59, kg, 05/03/23 9:52:00 EDT, Weight Dosing Start Date: 05/03/23 Status: Ordered ferrous sulfate 325 mg oral tablet (18 sources) Start: 04-16-2021 take 1 tablet by [...] meals. folic acid 1 mg oral tablet (12 sources) Start: 09-08-2022 folic acid 1 mg Tab Refills(s) 0 Start Date: 09/08/22 Status: Ordered Insulin Aspart FlexPen (11 sources) Start: 02-01-2023 Insulin Aspart FlexPen SubCutaneous, TIDAC, Refills(s) 0 Start Date: 09/21/22 Status: Ordered insulin aspart, human 100 unt/ml injectable solution (11 sources) Insulin Analog Start: 06-08-2017 insulin aspart (NovoLOG) 100 unit/mL injection Please use your sliding scale 1 Box 1 06/08/2017 Active insulin aspart ( NOVOLOG FLEXPEN U-100 INSULIN SUBCUTANEOUS) Inject subcutaneously. Sliding scale 0 Active Comment on above: Inject subcutaneousl y. Sliding scale 3 ml insulin degludec 100 unt/ml / liraglutide 3.6 mg/ml pen injector (5 sources) Insulin Analog, GLP-1 Receptor Agonist Start: inject 28 [IU] by subcutaneous injection once [...] Directed Active lisinopril 10 mg oral tablet (3 sources) Angiotensin Converting Enzyme Inhibitor take 1 tablet by mouth in the morning lisinopriL (PRINIVIL,ZESTRIL) 10 mg tablet Take 1 tablet (10 mg total) by mouth in the morning. 0 Active metFORMIN hydrochloride 1000 mg oral tablet (3 sources) Biguanide take 1 tablet by mouth in the morning, then take 1 tablet by mouth at mealtime metFORMIN (GLUCOPHAGE) 1000 mg tablet Take 1 tablet (1,000 mg total) by mouth in the morning and 1 tablet (1,000 mg total) in the evening. Take with meals. 0 Active 24 hr metoprolol succinate 25 mg extended release oral tablet (3 sources) beta-Adrenergic Renetta Start: take 1 tablet by mouth every twenty-four hours in the morning metoprolol succinate XL (TOPROL XL) 25 mg 24 hr tablet Take 1 tablet (25 mg total) by mouth in the morning. 0 12/20/2022 Active 24 hr mirabegron 50 mg extended release oral tablet (1 source) beta3-Adrenergic Agonist Start: End: 08-30-2 023 take 1 tablet by mouth once daily Myrbetriq 50 mg oral tablet, extended release 50 mg = 1 tab(s), Oral, Daily, X 30 day(s), # 30 tab(s), Refills(s) 6, Pharmacy: [id number], 153, cm, 09/21/22 8:48:00 EST, Height/Length Dosing, 52.5, kg, 09/21/22 8:48:00 EST, Weight Dosing Start Date: 09/21/22 Stop Date: 04/19/23 Status: Ordered 24 hr oxybutynin chloride 5 mg extended release oral tablet (1 source) Cholinergic Muscarinic Antagonist Start: 023 End: take 1 tablet by mouth once daily oxybutynin 5 mg ER Tab 5 mg = 1 tab(s), Oral, Daily, X 30 day(s), # 30 tab(s), Refills(s) 6, Pharmacy: [id number], 153, cm, 09/13/22 13:38:00 EST, Height/Length Dosing, 52.5, kg, 09/13/22 13:38:00 EST, Weight Dosing Start Date: 09/13/22 Stop Date: 04/11/23 Status: Ordered potassium chloride 10 meq extended release oral capsule (12 sources) Start: 023 potassium chloride 10 mEq [...] total) in the evening. 90 capsule 1 11/10/2023 Active Start: 10-13-2023 End: 11-06-2023 pregabalin (LYRICA) 150 mg c apsule Indications: Complex regional pain syndrome type 1 of right upper extremity Take 1 capsule (150 mg total) by mouth in the morning and 1 capsule (150 mg total) at noon and 1 capsule (150 mg total) in the evening. 90 capsule 1 10/13/2023 11/06/2023 Discontinued (Reorder) Start: 09-08-2022 End: 10-10-2023 take 1 capsule by mouth [...] times daily. Take 1 capsule by mo uth two times a day for 30 days. trospium chloride 20 mg oral tablet (4 sources) Cholinergic Muscarinic Antagonist Start: 02-22-2023 take 1 tablet by mouth once daily trospium 20 mg oral tablet 20 mg = 1 tab(s), Oral, Daily, # 30 tab(s), Refills(s) 11, Pharmacy: [id number], 153, cm, 02/22/23 8:55:00 EDT, Height/Length Dosing, 52.5, kg, 02/22/23 8:55:00 EDT, Weight Dosing Start Date: 02/22/23 Status: Ordered vitamin b12 1 mg extended release oral tablet (18 sources) Vitamin B12 Start: 06-14-2023 take 1 [...] above: Take 1,000 mcg by mo [facility] once daily. 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] Episodic Other aftercare (3 sources) custodial (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; Translations: [CASKET INSPECTOR CURRENT USE OF INSULIN] Onset: 08-09-2022 Episodic [...] Chronic Other diseases of kidney and ureters (4 sources) Acquired renal cyst without neoplastic change; [...] 06-06-2023 06-06-2023 Chronic Other nervous system disorders (14 sources) Complex regional pain syndrome type I of right upper limb; Translations: [Complex regional pain syndrome I of right upper limb] Onset: 09-26-2017 09-07-2023 Chronic Other nervous system disorders (1 source) Complex regional pain syndrome I of right upper limb; Translations: [Complex regional pain syndrome i of right upper limb] Onset: 09-29-2023 Chronic Other nutritional; endocrine; and metabolic disorders [...] [RHEUMATOID ARTHRITIS UNSPECIFIED] Onset: 09-13-2022 Chronic Unclassified (12 sources) Finding of sensation of bladder 09-13-2022 Unclassified (1 source) CHRN KIDNEY DISEASE STG 3 UNSP; Translations: [CHRN KIDNEY DISEASE STG 3 UNSP] Onset: 12-31-2022 Unclassified (1 source) CONTACT W/AND (SUSP) EXPOS COVID-19; Translations: [CONTACT W/AND (SUSP) EXPOS COVID-19] Onset: 07-25-2022 Unclassified (1 source) Extremity Pain Onset: 12-13-2023 Unclassified (1 source) Complex regional pain syndrome type 1 of right upper extremity [G90.511] Onset: 09-29-2023 Past or Other Problems Problem Classification Problem [...] Onset: 06-24-2022 Episodic Deficiency and other anemia (20 sources) Iron deficiency anemia; Translations: [Iron deficiency anemia, unspecified] Onset: 11-15-2021 09-08-2022 Episodic Deficiency and other anemia (1 source) Folate deficiency anemia, unspecified; Translations: [FOLATE DEFICIENCY ANEMIA UNS] Onset: 07-25-2022 Episodic Diabetes mellitus without complication (18 sources) Glycosuria; Translations: [Glycosuria] Onset: 08-13-2020 Episodic E Codes: Natural/environment (1 source) Exposure to other specified factors, initial encounter; Translations: [EXPOSURE OTHER SPEC FACTORS INITIAL] Onset: 06-15-2022 Episodic Fluid and electrolyte disorders (19 sources) Hyperkalemia; Translations: [Hyperkalemia] Onset: 07-25-2022 09-08-2022 [...] 05-16-2022 Episodic Other aftercare (1 source) Other half-way (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; Translations: [OTH CASKET INSPECTOR CURRENT DRUG THERAPY] Onset: 08-09-2022 Episodic Other aftercare (3 sources) Admission statuses; Translations: [termite 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 inspector (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 of opiate analgesic] Onset: 03-15-2022 03-15-2022 Episodic Other aftercare (1 source) termite renewal inspector (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 of opiate analgesic; Translations: [termite renewal inspector (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 of opiate analgesic] Onset: 03-15-2022 Episodic Other circulatory disease (20 sources) History of transient ischemic attack; Translations: [...] Episodic Other diseases of kidney and ureters (15 sources) Cyst of kidney; Translations: [Cyst of [...] toe] Onset: 07-25-2022 Episodic Urinary tract infections (15 sources) Urinary tract infectious disease; Translations: [Urinary tract infection, site not specified] Onset: 07-25-2022 09-08-2022 Episodic Results Test Name Value Interpretation Reference Range Facility ED Note-Physicianon 10-30-19 24 ED Note-Physician [id number]#1.00 TIFF Normal [facility] Lab Reportson 10-30-2023 Lab Reports [id number] IFF Normal [facility] Lab Reports [id number] IFF Normal [facility] Urology Office/Clinic Noteon 10-26-2023 Urology Office/Clinic Note Chief Complaint S/P to Cysto with Botox HPI Staff KML pt. Here for f/u to Botox 100u done 05/22/23. R/s'd appt from 06/28/23. Previous dx: renal cyst, mixed incontinence, feeling of incomplete bladder emptying, glucosuria. Pt was referred to Dr. Ballard at [facility] for evaluation of robotic left cyst decortication. S/p Left robotic partial nephrectomy 06/22/23. Pt called 06/08/23 c/o worsened leakage after Botox. PVR was 174 mL. CIC a couple times a day. UCx showed >100k E coli. [facility] ER 06/19/23 due to N&V. Given IV fluids, a gram Rocephin, and Bactrim. UCx showed >100k E coli. * She needs prescription for Catheters. The last time she CIC was a couple days ago. Very uncomfortable CIC. When her bladder is completely empty she gets uncomfortable for hours PVR 95 Dysuria: _denies Incomplete bladder emptying: no Hematuria: denies visible blood Frequency: every 15-30 minutes Urgency: _yes Nocturia: Depends wore nightly, 4x nightly bladder wakes her up. When she wakes up her Depends are already soaked Stream: _yes hesitation, very strong stream Leaking: _yes Post void dripping: _yes Wearing pads/ Depends: _pads wore daily Urge incontinence: _yes Stress incontinence: _yes Incontinence without Sensory Awareness: _yes Abdominal pain: _minor Flank pain: _denies Sexual complaints: _denies History of Present Illness staff HPI reviewed and agree. Tests Reviewed: Reviewed op note, path Review of Systems PHQ Score Initial Depression Screen Score: 0 SCORE no fever, chills, malaise, myalgia. no rash/lesions. no chest pain, palpitations, or SOB. no abdominal pain, nausea, vomiting. no unilateral calf swelling, redness, pain Physical Exam Vitals & Measurements T: 36.0 ?C(Temporal Artery) HR: 86(Peripheral) BP: 122/78 HT: 60 in HT: 153 cm WT: 59 kg WT: 129.8 lb BMI: 25.2 General: nontoxic, NAD Mouth: moist mucosa Lungs: normal respiratory effort Cardio: regular rate, good distal perfusion Abdomen: nondistended, no suprapubic distention or tenderness, no CVA tenderness Neurologic: Grossly normal Skin: No rashes or suspicious lesions Assessment/Plan 1. Mixed incontinence (N39.46: Mixed incontinence) CHIEF CONTROLLER TOWER Aug 2022 c/o UUI>BURKE incontinence, worsening. BURKE - Leaks with sneezing, coughing. UUI - on the way to the restroom. Occasional full incontinence. Occasional unaware incontinence. Wears a pad, changes 3x/day. started Oxybutynin Aug 2022. thought it helped but caused constipation and hair to fall out so was dc'd. started Myrbetriq Sep 2022. pt never started secondary to cost. started Trospium Feb 2023. no improvement at f/u in Apr. S/p Botox 100u 05/22/23. Pt reports today that procedure did not go as planned staff forgot to put the numbing solution in, so I could only tolerate [address] Porras had to stop the procedure. This is confusing bc review of KM's op report shows completely normal events (lidocaine instilled normally, 10 injections of 2ml each) so it's unclear if pt received full 100units or not. Pt called 06/08/23 c/o worsening leakage after Botox. PVR was 174 cc (compared to 142cc prior to botox). KM recommended to start CIC 3x/day for residual, timed voids q2hr, and tight DM control. Pt was in [facility] ER 06/19 and treated for E Coli infection Pt was supposed to f/u 06/28 but no-showed Pt reports she has continued CIC since that time, varies how often daily. Reports a lot of discomfort w passing cath. Also reports discomfort for quite a while after passing cath. PVR 95 cc IO today. pt has not been consistently doing CIC for PVR, sometimes does it without voiding first. Isn't able to give me a clear picture of how much urine she's getting when she does CIC as a residual. -D/c CIC. -Nurse visit in 1 week PVR to ensure no fabien retention -Continue timed voids q2-3hr. -Discussed repeating Botox at 100 v 200 units, vs adding bladder meds (to see if work better with Botox on board), vs SNM. However, after pt had already left clinic we realized she had worsening A1c. Spoke w both MDs who agree additional botox is not the answer at this time. Called pt, had a fabien discussion that likely her biggest issue is her uncontrolled DM. (see #3) we spoke that w DM out of control, it's unlikely any of our treatment options will be successful. needs to focus on DM control as top priority. 2. Incomplete bladder emptying (R33.9: Retention of urine, unspecified) distant hx CIC. PVR : 09/13/22 - 71ml 09/21/22 - 38ml 02/22/23 - 32ml 05/03/23 - 142ml 06/08/23 - 174 ml 10/25/23 - 95ml see #1. 3. 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 had long discussion regarding DM control. see #1. 4. Renal cyst (N28.1: Cyst of kidney, acquired) MRI w/won con done 01/20/21 shows Bosniak category 2F cyst within the lower pole of the left kidney measuri (more content not included)... Normal [facility] Comment on above: Result Comment: Elec tronically Signed By: HEIDY ARNOLD PA-C\.br\Date and Time Signed: 10/26/23 11:50 EST\.br\Electronically Co-Signed By: Dina Jolly\.br\Date and Time Co-Signed: 10/25/23 16:39 EST Ambulatory Visit Summaryon 0 10-25-2023 Ambulatory Visit Summary IASLINN WHEELER :1960 Visit Date:10/25/2023 Ambulatory Visit Instructions Your Diagnosis Mixed incontinence Your Care Team Attending Physician - HEIDY ARNOLD PA-C Primary Care Physician - LATOSHA OLMSTEAD CNP This Is Your Medications List Contact prescribing physician if questions or concerns acetaminophen-hydrocodo ne (acetaminophen-hydrocod one 325 mg-7.5 mg oral tablet) amlodipine (amLODIPine 5 mg Tab) estradiol topical (Estrace 0.1 mg/g Cream) folic acid (folic acid 1 mg Tab) insulin aspart (Insulin Aspart FlexPen) potassium chloride (potassium chloride 10 mEq Cap-ER) pregabalin (pregabalin 150 mg Cap) Procedures Performed Laparoscopic partial nephrectomy of left kidney (06/22/2023), 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 Discharge Vitals Temperature (Temporal Artery) 36.0 ?C Heart Rate (Peripheral) 86 Blood Pressure 122/78 Height 153 cm Height 60 in Weight 59 kg Weight 129.8 lb BMI 25.2 What to do next You Need to Schedule the Following Appointments Follow Up with CATALINA VIRGEN, EMELINA CEDILLO When: Where: [address] [facility] [place] [address] Medications What How Much When Instructions Unchanged acetaminophen-hydrocodo ne (acetaminophen-hydrocod one 325 mg-7.5 mg oral tablet) Contact prescribing physician if questions or concerns Unchanged amlodipine (amLODIPine 5 mg Tab) Contact prescribing physician if questions or concerns Unchanged estradiol topical (Estrace 0.1 mg/ g Cream) See instructions apply pea size amount to urethra/ inner vagina 3x/ week x 1 month, then 2x/ week for maintainence Contact prescribing physician if questions or concerns [...] Contact prescribing physician if questions or concerns Allergies Latex (Eruption) Problems Ongoing - Any problem that you are currently receiving treatment for. Chronic kidney disease stage 3 Essential hypertension Feeling of incomplete bladder emptying Glucosuria Heart failure Hyperkalemia Incomplete bladder emptying Iron deficiency anemia, unspecified Mixed incontinence Personal history of transient ischemic attack Renal cyst Type 2 diabetes mellitus Ureteric stone Urinary leakage Urinary tract infection Patient Survey You may receive a survey via text or e-mail asking about your office visit. Please share your experience with us by completing your survey. We appreciate your feedback and thank you for choosing us for your care. Education Materials Botulinum Toxin Bladder Injection A botulinum toxin bladder injection is a procedure to treat an overactive bladder. During the procedure, a drug called botulinum toxin is injected into the bladder through a long, thin needle. This drug relaxes the bladder muscles and reduces overactivity. You may need this procedure if your medicines are not working or you cannot take them. The procedure may be repeated as needed. The treatment is done once and it usually lasts for 6 months. Your health care provider will monitor you to see how well you respond. Tell a health care provider about: ? Any allergies you have. ? All medicines you are taking, including vitamins, herbs, eye drops, creams, and akke-yqb-jikqktk medicines. ? Any problems you or family members have had with anesthetic medicines. ? Any bleeding problems you have. ? Any surgeries you have had. ? Any medical conditions you have. ? Any previous reactions to a botulinum toxin injection. ? Any symptoms of urinary tract infection. These include chills, fever, a burning feeling when passing urine, and needing to pass urine often. ? Whether you are or may be . What are the risks? Generally this is a safe procedure. However, problems may occur, including: ? Not being able to pass urine. If this happens, you may need to have your bladder emptied with a thin tube (urinary catheter). ? Bleeding. ? Urinary tract infection. ? Allergic reaction to the botulinum toxin. ? Pain or burning when passing urine. ? Damage to nearby structures or organs. What happens before the procedure? When to stop eating and drinking Follow instructions from your health care provider about what you may eat and drink before your procedure. These may include: ? 8 hours before the procedure ? Stop eating most foods. Do no (more content not included)... Normal [facility] Patient Educationon 10-25-19 Patient Education Urology Botulinum Toxin Bladder Injection A botulinum toxin bladder injection is a procedure to treat an overactive bladder. During the procedure, a drug called botulinum toxin is injected into the bladder through a long, thin needle. This drug relaxes the bladder muscles and reduces overactivity. You may need this procedure if your medicines are not working or you cannot take them. The procedure may be repeated as needed. The treatment is done once and it usually lasts for 6 months. Your health care provider will monitor you to see how well you respond. Tell a health care provider about: ? Any allergies you have. ? All medicines you are taking, including vitamins, herbs, eye drops, creams, and vpjh-fxb-eivnezj medicines. ? Any problems you or family members have had with anesthetic medicines. ? Any bleeding problems you have. ? Any surgeries you have had. ? Any medical conditions you have. ? Any previous reactions to a botulinum toxin injection. ? Any symptoms of urinary tract infection. These include chills, fever, a burning feeling when passing urine, and needing to pass urine often. ? Whether you are or may be . What are the risks? Generally this is a safe procedure. However, problems may occur, including: ? Not being able to pass urine. If this happens, you may need to have your bladder emptied with a thin tube (urinary catheter). ? Bleeding. ? Urinary tract infection. ? Allergic reaction to the botulinum toxin. ? Pain or burning when passing urine. ? Damage to nearby structures or organs. What happens before the procedure? When to stop eating and drinking Follow instructions from your health care provider about what you may eat and drink before your procedure. These may include: ? 8 hours before the procedure ? Stop eating most foods. Do not eat meat, fried foods, or fatty foods. ? Eat only light foods, such as toast or crackers. ? All liquids are okay except energy drinks and alcohol. ? 6 hours before the procedure ? Stop eating. ? Drink only clear liquids, such as water, clear fruit juice, black coffee, plain tea, and sports drinks. ? Do not drink energy drinks or alcohol. ? 2 hours before the procedure ? Stop drinking all liquids. ? You may be allowed to take medicines with small sips of water. If you do not follow your health care provider's instructions, your procedure may be delayed or canceled. Medicines Ask your health care provider about: ? Changing or stopping your regular medicines. This is especially important if you are taking diabetes medicines or blood thinners. ? Taking medicines such as aspirin and ibuprofen. These medicines can thin your blood. Do not take these medicines unless your health care provider tells you to take them. ? Taking dsdf-cxm-jutocju medicines, vitamins, herbs, and supplements. General instructions ? Ask your health care provider what steps will be taken to help prevent infection. These steps may include: ? Removing hair at the procedure site. ? Washing skin with a germ-killing soap. ? Taking antibiotic medicine. ? If you will be going home right after the procedure, plan to have a responsible adult: ? Take you home from the hospital or clinic. You will not be allowed to drive. ? Care for you for the time you are told. What happens during the procedure? ? You will be asked to empty your bladder. ? An IV will be inserted into one of your veins. ? You will be given one or more of the following: ? A medicine to help you relax (sedative). ? A medicine to numb the area (local anesthetic). ? A medicine to make you fall asleep (general anesthetic). ? A long, thin scope called a cystoscope will be passed into your bladder through the part of the body that carries urine from your bladder (urethra). ? The cystoscope will be used to fill your bladder with water. ? A long needle will be passed through the cystoscope and into the bladder. ? The botulinum toxin will be injected into your bladder. It may be injected into multiple areas of your bladder. ? The cystoscope will be removed and your bladder will be emptied with a urinary catheter. The procedure may vary among health care providers and hospitals. What can I expect after the procedure? After your procedure, it is common to have: ? Blood-tinged urine. ? Burning or soreness when you pass urine. Follow these instructions at home: Medicines ? Take vwhy-ozv-nsfungq and prescription medicines only as told by your health care provider. ? If you were prescribed an antibiotic medicine, take it as told by your health care provider. Do not stop using the antibiotic even if you start to feel better. General instructions ? If you were given a sedative during the procedure, it can affect you for several hours. Do not drive or operate machinery until your health ca (more content not included)... Normal [facility] Glucose Glucometer (BldC) [M ass/Vol]on 10-13-2023 Glucose [Mass/Vol] 276 mg/dL High 65-99 [facility] Glucose Glucometer (BldC) [M ass/Vol]on 09-29-2023 Glucose [Mass/Vol] 356 mg/dL High 65-99 [facility] CNPNon 09-27-2023 CNPN Telephone (FVJEFFRYD) AISLINN WHEELER ([id number]) 1960 F Date Time Provider Department 09/27/23 ROSIE BUCKNER During your visit today, we recorded the following information about you: Rosie Buckner, Research Coordinator 09/27/2023 2:33 PM Signed IRB# [id number]: Vascular events in patients undergoing same-day nonCardiac surgery - [facility] PI: Mary Rojas MD, LETY, FASA. Outcomes Research Department. Anesthesia [place]. [facility]. Aislinn Wheeler was unavailable at the listed phone number. We will attempt to contact the patient through [employer] message. Rosie Esqueda, Research Coordinator Research Coordinator Allergies As of Date: 09/27/2023 Noted Allergy Reaction LATEX 02/05/2020 2 - Rash Comments: Added based on information entered during case entry, please review and add reactions, type, and severity as needed Date Reviewed: 09/03/2023 Reviewed by: Chuck Kirk RN - Fully Assessed Reason for Visit: Research F/U [587] Prescriptions as of 09/27/2023 - pregabalin (LYRICA) [...] Encounter Status:Closed by ROSIE BUCKNER on 09/27/23 [facility] [place] 09-26-2023 KIARAN Telephone (FVPRAD) AISLINN WHEELER ([id number]) 1960 F Date Time Provider Department 09/26/23 ROSIE BUCKNER FVPRAD During your visit today, we recorded the following information about you: Rosie Buckner, Research Coordinator 09/26/2023 3:32 PM Signed IRB# [id number]: Vascular events in patients undergoing same-day nonCardiac surgery - [facility] PI: Mary Rojas MD, LETY, FASA. Outcomes Research Department. Anesthesia [place]. [facility]. Aislinn Wheeler was unavailable at the [...] Fully Assessed Reason for Visit: Research F/U [143] Prescriptions as of 09/26/2023 - pregabalin (LYRICA) [...] Encounter Status:Closed by [facility] HNO ID: [id number] Author: ANTHONY BARROW MD Service: Hospital Medicine [...] Smoking Cessation Education Physician Consult Physician Consult FOLLOW UP PROVIDER FOR SUMMARY OF CARE [...] Time Provider Department Center 10/06/2023 1:00 PM [facility] [place] [facility] Brittanie 10/06/2023 2:00 PM LAB [facility] [place] [facility] Brittanie 10/11/2023 1:50 PM Taurus Ballard MD [facility] ALLERGIES Allergen Reactions Latex Rash Added [...] INSULIN SUBCUTANEO (more content not included)... Normal [facility] ALLIED HEALTHon 09-03-2023 [facility] HNO ID: [id number] Author: NICOL FOUNTAIN RT(R) Service: Radiology Author Type: Technologist Type: [...] PERIPHERAL IV DATA: Not applicable SIGNED BY: Nicol Fountain, RT(R) September 03, 2023 2:57 PM Normal [facility] Basic metabolic 2000 panelon 09-03-2023 Anion gap [Moles/Vol] 10 mmol/L Normal 9-18 [facility] Comment on above: Order Comment: Speci men Type: BLOOD SPECIMEN Ordering Facility: [facility] Address: [address] [place] [address] Performed By: #### 2 4321-2 #### [facility] CLIA [id number] [address] [place] [address] [place] Calcium [Mass/Vol] 8.8 mg/dL Normal 8.5-10.2 [facility] Comment on above: Order Comment: Speci men Type: BLOOD SPECIMEN Ordering Facility: [facility] Address: [address] [place] [address] Performed By: #### 2 4321-2 #### [facility] CLIA [id number] [address] [place] [address] [place] Chloride [Moles/Vol] 103 mmol/L Normal 97-105 [facility] Comment on above: Order Comment: Speci men Type: BLOOD SPECIMEN Ordering Facility: [facility] Address: [address] [place] [address] Performed By: #### 2 4321-2 #### [facility] CLIA [id number] [address] [place] [address] [place] CO2 [Moles/Vol] 23 mmol/L Normal 22-30 [facility] Comment on above: Order Comment: Speci men Type: BLOOD SPECIMEN Ordering Facility: [facility] Address: [address] [place] [address] Performed By: #### 2 4321-2 #### [facility] CLIA [id number] [place] [address] [place] Creatinine [Mass/Vol] 1.29 mg/dL High 0.58-0.96 [facility] Comment on above: Order Comment: [place] Type: BLOOD SPECIMEN Ordering Facility: [facility] Address: [address] [place] [address] Performed By: #### 2 4321-2 #### [facility] CLIA [id number] [place] [address] [place] Creatinine and Glomerular filtration rate.predicted panel (S/P/Bld) 46 mL/min/1.73m??? Low >=60 [facility] Comment on above: Order Comment: [place] Type: BLOOD SPECIMEN Ordering Facility: [facility] Address: [address] [place] [address] Result Comment: Donna mated Glomerular Filtration Rate [...] GFR. Performed By: #### 2 4321-2 #### [facility] CLIA [id number] [place] [address] [place] Glucose [Mass/Vol] 123 mg/dL High 74-99 [facility] Comment on above: Order Comment: [place] Type: BLOOD SPECIMEN Ordering Facility: [facility] Address: [address] [place] [address] Result Comment: The [place] Diabetes Association (ADA) provides guidance for cutoff [...] Standards of Medical Care in Diabetes 2016, [place] [employer] Association. Diabetes Care. 2016.39(Suppl 1). Performed By: #### 2 4321-2 #### [facility] CLIA [id number] [address] [place] [address] [place] Potassium [Moles/Vol] 5.0 mmol/L Normal 3.7-5.1 [facility] Comment on above: Order Comment: Speci men Type: BLOOD SPECIMEN Ordering Facility: [facility] Address: [address] [place] [address] Performed By: #### 2 4321-2 #### [facility] CLIA [id number] [address] [place] [address] [place] Sodium [Moles/Vol] 136 mmol/L Normal 136-144 [facility] Comment on above: Order Comment: Speci men Type: BLOOD SPECIMEN Ordering Facility: [facility] Address: [address] [place] [address] Performed By: #### 2 4321-2 #### [facility] CLIA [id number] [address] [place] [address] [place] Urea nitrogen [Mass/Vol] 22 mg/dL High 7-21 [facility] Comment on above: Order Comment: Simon[place] men Type: BLOOD SPECIMEN Ordering Facility: [facility] Address: [address] [place] [address] Performed By: #### 2 4321-2 #### [facility] CLIA [id number] [address] [place] [address] [place] CBC panel Auto (Bld)on 09-03 Erythrocyte distribution width (RBC) [Ratio] 14.6 % Normal 11.5-15.0 [facility] Comment on above: Order Comment: Speci men Type: VENOUS BLOOD SPECIMEN Ordering Facility: [facility] Address: [address] [place] [address] Performed By: #### 2 4344-4 #### [facility] CLIA [id number] [address] [place] [address] [place] Hematocrit (Bld) [Volume fraction] 28.7 % Low 36.0-46.0 [facility] Comment on above: Order Comment: Speci men Type: VENOUS BLOOD SPECIMEN Ordering Facility: [facility] Address: [address] [place] [address] Performed By: #### 2 4344-4 #### [facility] CLIA [id number] [address] [place] [address] [place] Hemoglobin (Bld) [Mass/Vol] 8.9 g/dL Low 11.5-15.5 [facility] Comment on above: Order Comment: Speci men Type: VENOUS BLOOD SPECIMEN Ordering Facility: [facility] Address: [address] [place] [address] Performed By: #### 2 4344-4 #### [facility] CLIA [id number] [address] [place] [address] [place] MCH (RBC) [Entitic mass] 24.1 pg Low 26.0-34.0 [facility] Comment on above: Order Comment: Speci men Type: VENOUS BLOOD SPECIMEN Ordering Facility: [facility] Address: [address] [place] [address] Performed By: #### 2 4344-4 #### [facility] CLIA [id number] [address] [place] [address] [place] MCHC (RBC) [Mass/Vol] 31.0 g/dL Normal 30.5-36.0 [facility] Comment on above: Order Comment: Speci men Type: VENOUS BLOOD SPECIMEN Ordering Facility: [facility] Address: [address] [place] [address] Performed By: #### 2 4344-4 #### [facility] CLIA [id number] [address] [place] [address] [place] MCV (RBC) [Entitic vol] 77.6 fL Low 80.0-100.0 [facility] Comment on above: Order Comment: Speci men Type: VENOUS BLOOD SPECIMEN Ordering Facility: [facility] Address: [address] [place] [address] Performed By: #### 2 4344-4 #### [facility] CLIA [id number] [place] [address] [place] Nucleated RBC (Bld) [#/Vol] 10*3/uL Normal <0.01 [facility] Comment on above: Order Comment: Speci men Type: VENOUS BLOOD SPECIMEN Ordering Facility: [facility] Address: [address] [place] [address] Performed By: #### 2 4344-4 #### [facility] CLIA [id number] [address] [place] [address] [place] Platelet mean volume (Bld) [Entitic vol] 10.8 fL Normal 9.0-12.7 [facility] Comment on above: Order Comment: Speci men Type: VENOUS BLOOD SPECIMEN Ordering Facility: [facility] Address: [address] [place] [address] Performed By: #### 2 4344-4 #### [facility] CLIA [id number] [address] [place] [address] [place] Platelets (Bld) [#/Vol] 334 10*3/uL Normal 150-400 [facility] Comment on above: Order Comment: Speci men Type: VENOUS BLOOD SPECIMEN Ordering Facility: [facility] Address: [address] [place] [address] Performed By: #### 2 4344-4 #### [facility] CLIA [id number] [address] [place] [address] [place] RBC (Bld) [#/Vol] 3.70 10*6/uL Low 3.90-5.20 [facility] Comment on above: Order Comment: Speci men Type: VENOUS BLOOD SPECIMEN Ordering Facility: [facility] Address: [address] [place] [address] Performed By: #### 2 4344-4 #### [facility] CLIA [id number] [address] [place] [address] [place] WBC (Bld) [#/Vol] 6.44 10*3/uL Normal 3.70-11.00 [facility] Comment on above: Order Comment: Speci men Type: VENOUS BLOOD SPECIMEN Ordering Facility: [facility] Address: [place] [id number] Performed By: #### 2 4344-4 #### [facility] CLIA [id number] [address] [place] [address] [place] FOOT WO [...] NO EVIDENCE OF OSTEOMYELITIS ON THIS EXAMINATION. Shipfitter Apprentice: PSCB Transcribe Date/Time: Sep 03 2023 11:22P Dictated by : FINESSE BUTLER MD This examination was interpreted and the report reviewed and electronically signed by: FINESSE BUTLER MD on Sep 03 2023 11:27PM EST [id number] Normal [facility] Basic metabolic 2000 panelon 09-02-2023 Anion gap [Moles/Vol] 9 mmol/L Normal 9-18 [facility] Comment on above: Order Comment: Speci men Type: BLOOD SPECIMEN Ordering Facility: [facility] Address: [address] [place] [id number] Performed By: #### 2 4321-2 #### [facility] CLIA [id number] [place] [address] [place] Calcium [Mass/Vol] 8.1 mg/dL Low 8.5-10.2 [facility] Comment on above: Order Comment: Speci men Type: BLOOD SPECIMEN Ordering Facility: [facility] Address: [address] [place] [address] Performed By: #### 2 4321-2 #### [facility] CLIA [id number] [address] [place] [address] [place] Chloride [Moles/Vol] 106 mmol/L High 97-105 [facility] Comment on above: Order Comment: Speci men Type: BLOOD SPECIMEN Ordering Facility: [facility] Address: [address] [place] [address] Performed By: #### 2 4321-2 #### [facility] CLIA [id number] [address] [place] [address] [place] CO2 [Moles/Vol] 22 mmol/L Normal 22-30 [facility] Comment on above: Order Comment: Speci men Type: BLOOD SPECIMEN Ordering Facility: [facility] Address: [address] [place] [address] Performed By: #### 2 4321-2 #### [facility] CLIA [id number] [address] [place] [address] [place] Creatinine [Mass/Vol] 1.30 mg/dL High 0.58-0.96 [facility] Comment on above: Order Comment: Speci men Type: BLOOD SPECIMEN Ordering Facility: [facility] Address: [address] [place] [address] Performed By: #### 2 4321-2 #### [facility] CLIA [id number] [address] [place] [address] [place] Creatinine and Glomerular filtration rate.predicted panel (S/P/Bld) 46 mL/min/1.73m??? Low >=60 [facility] Comment on above: Order Comment: Speci men Type: BLOOD SPECIMEN Ordering Facility: [facility] Address: [address] [place] [address] Result Comment: Donna mated Glomerular Filtration Rate [...] GFR. Performed By: #### 2 4321-2 #### [facility] CLIA [id number] [place] [address] [place] Glucose [Mass/Vol] 192 mg/dL High 74-99 [facility] Comment on above: Order Comment: Specangelique [place] Type: BLOOD SPECIMEN Ordering Facility: [facility] Address: [place] [address] Result Comment: The [place] [employer] (ADA) provides guidance for cutoff [...] Standards of Medical Care in Diabetes 2016, [place] [employer]. Diabetes Care. 2016.39(Suppl 1). Performed By: #### 2 4321-2 #### [facility] CLIA [id number] [address] [place] [address] [place] Potassium [Moles/Vol] 4.9 mmol/L Normal 3.7-5.1 [facility] Comment on above: Order Comment: [place] Type: BLOOD SPECIMEN Ordering Facility: [facility] Address: [place] [address] Performed By: #### 2 4321-2 #### [facility] CLIA [id number] [place] [address] [place] Sodium [Moles/Vol] 137 mmol/L Normal 136-144 [facility] Comment on above: Order Comment: Speci men Type: BLOOD SPECIMEN Ordering Facility: [facility] Address: [address] [place] [address] Performed By: #### 2 4321-2 #### [facility] CLIA [id number] [address] [place] [address] [place] Urea nitrogen [Mass/Vol] 17 mg/dL Normal 7-21 [facility] Comment on above: Order Comment: Speci men Type: BLOOD SPECIMEN Ordering Facility: [facility] Address: [address] [place] [address] Performed By: #### 2 4321-2 #### [facility] CLIA [id number] [address] [place] [address] [place] CBC panel Auto (Bld)on 09-02 Erythrocyte distribution width (RBC) [Ratio] 14.6 % Normal 11.5-15.0 [facility] Comment on above: Order Comment: Speci men Type: VENOUS BLOOD SPECIMEN Ordering Facility: [facility] Address: [address] [place] [address] Performed By: #### 2 4344-4 #### [facility] CLIA [id number] [address] [place] [address] [place] Hematocrit (Bld) [Volume fraction] 28.4 % Low 36.0-46.0 [facility] Comment on above: Order Comment: Speci men Type: VENOUS BLOOD SPECIMEN Ordering Facility: [facility] Address: [address] [place] [address] Performed By: #### 2 4344-4 #### [facility] CLIA [id number] [address] [place] [address] [place] Hemoglobin (Bld) [Mass/Vol] 8.9 g/dL Low 11.5-15.5 [facility] Comment on above: Order Comment: Speci men Type: VENOUS BLOOD SPECIMEN Ordering Facility: [facility] Address: [address] [place] [address] Performed By: #### 2 4344-4 #### [facility] CLIA [id number] [address] [place] [address] [place] MCH (RBC) [Entitic mass] 24.2 pg Low 26.0-34.0 [facility] Comment on above: Order Comment: Speci men Type: VENOUS BLOOD SPECIMEN Ordering Facility: [facility] Address: [address] [place] [address] Performed By: #### 2 4344-4 #### [facility] CLIA [id number] [address] [place] [address] [place] MCHC (RBC) [Mass/Vol] 31.3 g/dL Normal 30.5-36.0 [facility] Comment on above: Order Comment: Speci men Type: VENOUS BLOOD SPECIMEN Ordering Facility: [facility] Address: [address] [place] [address] Performed By: #### 2 4344-4 #### [facility] CLIA [id number] [address] [place] [address] [place] MCV (RBC) [Entitic vol] 77.2 fL Low 80.0-100.0 [facility] Comment on above: Order Comment: Speci men Type: VENOUS BLOOD SPECIMEN Ordering Facility: [facility] Address: [address] [place] [address] Performed By: #### 2 4344-4 #### [facility] CLIA [id number] [address] [place] [address] [place] Nucleated RBC (Bld) [#/Vol] 10*3/uL Normal <0.01 [facility] Comment on above: Order Comment: Speci men Type: VENOUS BLOOD SPECIMEN Ordering Facility: [facility] Address: [address] [place] [address] Performed By: #### 2 4344-4 #### [facility] CLIA [id number] [address] [place] [address] [place] Platelet mean volume (Bld) [Entitic vol] 10.4 fL Normal 9.0-12.7 [facility] Comment on above: Order Comment: Speci men Type: VENOUS BLOOD SPECIMEN Ordering Facility: [facility] Address: [address] [place] [address] Performed By: #### 2 4344-4 #### [facility] CLIA [id number] [place] [address] [place] Platelets (Bld) [#/Vol] 285 10*3/uL Normal 150-400 [facility] Comment on above: Order Comment: Speci men Type: VENOUS BLOOD SPECIMEN Ordering Facility: [facility] Address: [address] [place] [address] Performed By: #### 2 4344-4 #### [facility] CLIA [id number] [address] [place] [address] [place] RBC (Bld) [#/Vol] 3.68 10*6/uL Low 3.90-5.20 [facility] Comment on above: Order Comment: Speci men Type: VENOUS BLOOD SPECIMEN Ordering Facility: [facility] Address: [address] [place] [address] Performed By: #### 2 4344-4 #### [facility] CLIA [id number] [address] [place] [address] [place] WBC (Bld) [#/Vol] 5.94 10*3/uL Normal 3.70-11.00 [facility] Comment on above: Order Comment: Speci men Type: VENOUS BLOOD SPECIMEN Ordering Facility: [facility] Address: [address] [place] [address] Performed By: #### 2 4344-4 #### [facility] CLIA [id number] [address] [place] [address] [place] Bacteria Ur Culton Bacteria identified Cx Nom (U) CULTURE, URINE: No growth (<1,000 CFU/ml) Normal [facility] Comment on above: Performed By: #### 6 30-4 #### [facility] CLIA [id number] [address] [facility] [place] [address] [place] Basic metabolic 2000 panelon 09-01-2023 Anion gap [Moles/Vol] 10 mmol/L Normal 9-18 [facility] Comment on above: Order Comment: Speci men Type: VENOUS BLOOD SPECIMEN Ordering Facility: [facility] Address: [address] [place] [address] Performed By: #### 2 4344-4 #### [facility] CLIA [id number] [address] [place] [address] [place] Calcium [Mass/Vol] 7.9 mg/dL Low 8.5-10.2 [facility] Comment on above: Order Comment: Speci men Type: VENOUS BLOOD SPECIMEN Ordering Facility: [facility] Address: [address] [place] [address] Performed By: #### 2 4344-4 #### [facility] CLIA [id number] [address] [place] [address] [place] Chloride [Moles/Vol] 108 mmol/L High 97-105 [facility] Comment on above: Order Comment: Speci men Type: VENOUS BLOOD SPECIMEN Ordering Facility: [facility] Address: [address] [place] [address] Performed By: #### 2 4344-4 #### [facility] CLIA [id number] [address] [place] [address] [place] CO2 [Moles/Vol] 20 mmol/L Low 22-30 [facility] Comment on above: Order Comment: Speci men Type: VENOUS BLOOD SPECIMEN Ordering Facility: [facility] Address: [address] [place] [address] Performed By: #### 2 4344-4 #### [facility] CLIA [id number] [address] [place] [address] [place] Creatinine [Mass/Vol] 1.39 mg/dL High 0.58-0.96 [facility] Comment on above: Order Comment: Speci men Type: VENOUS BLOOD SPECIMEN Ordering Facility: [facility] Address: [address] [place] [address] Performed By: #### 2 4344-4 #### [facility] CLIA [id number] [address] [place] [address] [place] Creatinine and Glomerular filtration rate.predicted panel (S/P/Bld) 42 mL/min/1.73m??? Low >=60 [facility] Comment on above: Order Comment: Speci men Type: VENOUS BLOOD SPECIMEN Ordering Facility: [facility] Address: [address] [place] [address] Result Comment: Donna mated Glomerular Filtration Rate [...] GFR. Performed By: #### 2 4344-4 #### [facility] CLIA [id number] [address] [place] [address] [place] Glucose [Mass/Vol] 74 mg/dL Normal 74-99 [facility] Comment on above: Order Comment: [place] Type: VENOUS BLOOD SPECIMEN Ordering Facility: [facility] Address: [place] [address] Result Comment: The [place] Diabetes [employer] (ADA) provides guidance for cutoff [...] Standards of Medical Care in Diabetes 2016, [place] [employer]. Diabetes Care. 2016.39(Suppl 1). Performed By: #### 2 4344-4 #### [facility] CLIA [id number] [address] [place] [address] [place] Potassium [Moles/Vol] 4.7 mmol/L Normal 3.7-5.1 [facility] Comment on above: Order Comment: [place] Type: VENOUS BLOOD SPECIMEN Ordering Facility: [facility] Address: [place] [address] Performed By: #### 2 4344-4 #### [facility] CLIA [id number] [address] [place] [address] [place] Sodium [Moles/Vol] 138 mmol/L Normal 136-144 [facility] Comment on above: Order Comment: Speci men Type: VENOUS BLOOD SPECIMEN Ordering Facility: [facility] Address: [address] [place] [address] Performed By: #### 2 4344-4 #### [facility] CLIA [id number] [address] [place] [address] [place] Urea nitrogen [Mass/Vol] 25 mg/dL High 7-21 [facility] Comment on above: Order Comment: Speci men Type: VENOUS BLOOD SPECIMEN Ordering Facility: [facility] Address: [address] [place] [address] Performed By: #### 2 4344-4 #### [facility] CLIA [id number] [address] [place] [address] [place] CBC panel Auto (Bld)on 09-01 Erythrocyte distribution width (RBC) [Ratio] 14.7 % Normal 11.5-15.0 [facility] Comment on above: Order Comment: Speci men Type: BLOOD SPECIMEN Ordering Facility: [facility] Address: [address] [place] [address] Performed By: #### 2 4321-2 #### [facility] CLIA [id number] [address] [place] [address] [place] [facility] [place] Hematocrit (Bld) [Volume fraction] 29.4 % Low 36.0-46.0 [facility] Comment on above: Order Comment: Speci men Type: BLOOD SPECIMEN Ordering Facility: [facility] Address: [address] [place] [address] Performed By: #### 2 4321-2 #### [facility] CLIA [id number] [address] [place] [address] [place] Hemoglobin (Bld) [Mass/Vol] 9.1 g/dL Low 11.5-15.5 [facility] Comment on above: Order Comment: Speci men Type: BLOOD SPECIMEN Ordering Facility: [facility] Address: [address] [place] [address] Performed By: #### 2 4321-2 #### [facility] CLIA [id number] [address] [place] [address] [place] MCH (RBC) [Entitic mass] 24.4 pg Low 26.0-34.0 [facility] Comment on above: Order Comment: Speci men Type: BLOOD SPECIMEN Ordering Facility: [facility] Address: [address] [place] [address] Performed By: #### 2 4321-2 #### [facility] CLIA [id number] [address] [place] [address] [place] MCHC (RBC) [Mass/Vol] 31.0 g/dL Normal 30.5-36.0 [facility] Comment on above: Order Comment: Speci men Type: BLOOD SPECIMEN Ordering Facility: [facility] Address: [address] [place] [address] Performed By: #### 2 4321-2 #### [facility] CLIA [id number] [address] [place] [address] [place] MCV (RBC) [Entitic vol] 78.8 fL Low 80.0-100.0 [facility] Comment on above: Order Comment: Speci men Type: BLOOD SPECIMEN Ordering Facility: [facility] Address: [address] [place] [address] Performed By: #### 2 1-2 #### [facility] CLIA [id number] [address] [place] [address] [place] Nucleated RBC (Bld) [#/Vol] 10*3/uL Normal <0.01 [facility] Comment on above: Order Comment: Speci men Type: BLOOD SPECIMEN Ordering Facility: [facility] Address: [address] [place] [address] Performed By: #### 2 1-2 #### [facility] CLIA [id number] [address] [place] [address] [place] Platelet mean volume (Bld) [Entitic vol] 10.8 fL Normal 9.0-12.7 [facility] Comment on above: Order Comment: Speci men Type: BLOOD SPECIMEN Ordering Facility: [facility] Address: [address] [place] [address] Performed By: #### 2 4321-2 #### [facility] CLIA [id number] [address] [place] [address] [place] Platelets (Bld) [#/Vol] 275 10*3/uL Normal 150-400 [facility] Comment on above: Order Comment: Speci men Type: BLOOD SPECIMEN Ordering Facility: [facility] Address: [address] [place] [address] Performed By: #### 2 4321-2 #### [facility] CLIA [id number] [place] [address] [place] RBC (Bld) [#/Vol] 3.73 10*6/uL Low 3.90-5.20 [facility] Comment on above: Order Comment: Speci men Type: BLOOD SPECIMEN Ordering Facility: [facility] Address: [address] [place] [address] Performed By: #### 2 4321-2 #### [facility] CLIA [id number] [address] [place], [place] [id number] [place] WBC (Bld) [#/Vol] 7.48 10*3/uL Normal 3.70-11.00 [facility] Comment on above: Order Comment: Speci men Type: BLOOD SPECIMEN Ordering Facility: [facility] Address: [address] [place] [address] Performed By: #### 2 4321-2 #### [facility] CLIA [id number] [place], [place] [id number] [place] CONSULTon 09-01-2023 CONSULT HNO ID: [id number] Author: MAR ROUSSEAU RN Service: ? Author [...] 2023 TIME: 10:44 AM PAGER/CONTACT #: Normal [facility] Magnesium SerPl-mCncon 09-01 Magnesium [Mass/Vol] 1.5 mg/dL Low 1.7-2.3 [facility] Comment on above: Order Comment: Speci men Type: VENOUS BLOOD SPECIMEN Ordering Facility: [facility] Address: [address] [place] [address] Performed By: #### 2 4344-4 #### [facility] CLIA [id number] [address] [place] [address] [place] URINALYSIS, REFLEX MICROSCOP ICon 09-01-2023 Bacteria LM.HPF (Urine sed) [#/Area] Few Abnormal None Seen [facility] Comment on above: Order Comment: Speci men Type: VENOUS BLOOD SPECIMEN Ordering Facility: [facility] Address: [address] [place] [address] Performed By: #### 2 4344-4 #### [facility] CLIA [id number] [address] [place] [address] [place] Bilirubin Ql (U) Negative Normal Negative [facility] Comment on above: Order Comment: Speci men Type: VENOUS BLOOD SPECIMEN Ordering Facility: [facility] Address: [address] [place] [address] Performed By: #### 2 4344-4 #### [facility] CLIA [id number] [address] [place] [address] [place] Clarity (Unsp spec) Turbid Abnormal Clear [facility] Comment on above: Order Comment: Speci men Type: VENOUS BLOOD SPECIMEN Ordering Facility: [facility] Address: [address] [place] [address] Performed By: #### 2 4344-4 #### [facility] CLIA [id number] [address] [place] [address] [place] Color (U) Light Yellow Normal Yellow [facility] Comment on above: Order Comment: Speci men Type: VENOUS BLOOD SPECIMEN Ordering Facility: [facility] Address: [address] [place] [address] Performed By: #### 2 4344-4 #### [facility] CLIA [id number] [address] [place] [address] [place] Epithelial cells LM.HPF (Urine sed) [#/Area] Few Normal [facility] Comment on above: Order Comment: Speci men Type: VENOUS BLOOD SPECIMEN Ordering Facility: [facility] Address: [address] [place] [address] Performed By: #### 2 4344-4 #### [facility] CLIA [id number] [place] [address] Glucose Test strip (U) [Mass/Vol] Negative Normal Trace, Negative [facility] Comment on above: Order Comment: Speci men Type: VENOUS BLOOD SPECIMEN Ordering Facility: [facility] Address: [address] [place] [address] Performed By: #### 2 4344-4 #### [facility] CLIA [id number] [address] [place] [address] [place] Hemoglobin Ql (U) 1+ Abnormal Negative, Trace [facility] Comment on above: Order Comment: Speci men Type: VENOUS BLOOD SPECIMEN Ordering Facility: [facility] Address: [address] [place] [address] Performed By: #### 2 4344-4 #### [facility] CLIA [id number] [address] [place] [address] [place] Ketones Ql (U) Negative Normal Negative, Trace [facility] Comment on above: Order Comment: Speci men Type: VENOUS BLOOD SPECIMEN Ordering Facility: [facility] Address: [address] [place] [address] Performed By: #### 2 4344-4 #### [facility] CLIA [id number] [address] [place] [address] [place] Leukocyte esterase Test strip Ql (U) 500 Yuan/uL Abnormal Negative, 25 Yuan/uL [facility] Comment on above: Order Comment: Speci men Type: VENOUS BLOOD SPECIMEN Ordering Facility: [facility] Address: [address] [place] [address] Performed By: #### 2 4344-4 #### [facility] CLIA [id number] [address] [place] [address] [place] Nitrite Ql (U) Negative Normal Negative [facility] Comment on above: Order Comment: Speci men Type: VENOUS BLOOD SPECIMEN Ordering Facility: [facility] Address: [address] [place] [address] Performed By: #### 2 4344-4 #### [facility] CLIA [id number] [address] [place] [address] [place] pH (U) 6.0 [pH] Normal 5.0-8.0 [facility] Comment on above: Order Comment: Speci men Type: VENOUS BLOOD SPECIMEN Ordering Facility: [facility] Address: [address] [place] [address] Performed By: #### 2 4344-4 #### [facility] CLIA [id number] [address] [place] [address] [place] Protein (U) [Mass/Vol] 1+ Abnormal Trace, Negative [facility] Comment on above: Order Comment: Speci men Type: VENOUS BLOOD SPECIMEN Ordering Facility: [facility] Address: [address] [place] [address] Performed By: #### 2 4344-4 #### [facility] CLIA [id number] [address] [place] [address] [place] RBC LM.HPF (Urine sed) [#/Area] /[HPF] Abnormal 0-3 /HPF [facility] Comment on above: Order Comment: Speci men Type: VENOUS BLOOD SPECIMEN Ordering Facility: [facility] Address: [address] [place] [address] Performed By: #### 2 4344-4 #### [facility] CLIA [id number] [address] [place] [address] [place] Specific gravity (U) [Rel density] 1.011 Normal 1.005-1.030 [facility] Comment on above: Order Comment: Speci men Type: VENOUS BLOOD SPECIMEN Ordering Facility: [facility] Address: [address] [place] [address] Performed By: #### 2 4344-4 #### [facility] CLIA [id number] [address] [place] [address] [place] Urobilinogen Ql (U) Negative Normal Negative [facility] Comment on above: Order Comment: Speci men Type: VENOUS BLOOD SPECIMEN Ordering Facility: [facility] Address: [address] [place] [address] Performed By: #### 2 4344-4 #### [facility] CLIA [id number] [address] [place] [address] WBC LM.HPF (Urine sed) [#/Area] /[HPF] Abnormal 0-5 /HPF [facility] Comment on above: Order Comment: Speci men Type: VENOUS BLOOD SPECIMEN Ordering Facility: [facility] Address: [address] [place] [address] Performed By: #### 2 4344-4 #### [facility] CLIA [id number] [address] [place] [address] ALLIED HEALTHon 08-31-2023 ALLIED HEALTH HNO ID: [id number] Author: RASHAD LITTLE RT(R) Service: ? Author [...] Chriss(R) August 31, 2023 4:44 AM Normal [facility] Bacteria Bld Culton 08-31-19 24 Bacteria identified Cx Nom (Bld) CULTURE, BLOOD: No growth 5 days Normal [facility] Comment on above: Performed By: #### 6 00-7 #### [facility] CLIA [id number] [address] [facility] [id number] [place] Performed By: #### 6 00-7 ####[facility] [id number] [place] [address] [place] Bacteria Ur Culton [...] technique or straight catheterization for???urine???collectio n. Normal [facility] Comment on above: Performed By: #### 6 30-4 #### [facility] CLIA [id number] [address] [place] CBC W Auto Differential pane l (Bld)on 08-31-2023 Basophils (Bld) [#/Vol] 0.03 10*3/uL Normal <0.11 [facility] Comment on above: Order Comment: Speci men Type: VENOUS BLOOD SPECIMEN Ordering Facility: [facility] Address: [address] [place] [address] Performed By: #### 2 4344-4 #### [facility] CLIA [id number] [place] [address] [place] Basophils/100 WBC (Bld) 0.3 % Normal [facility] Comment on above: Order Comment: Speci men Type: VENOUS BLOOD SPECIMEN Ordering Facility: [facility] Address: [address] [place] [address] Performed By: #### 2 4344-4 #### [facility] CLIA [id number] [place] [address] [place] Differential cell count method Nom (Bld) Auto Normal [facility] Comment on above: Order Comment: Speci men Type: VENOUS BLOOD SPECIMEN Ordering Facility: [facility] Address: [address] [place] [address] Performed By: #### 2 4344-4 #### [facility] CLIA [id number] [address] [place] [address] [place] Eosinophils (Bld) [#/Vol] 10*3/uL Normal <0.46 [facility] Comment on above: Order Comment: Speci men Type: VENOUS BLOOD SPECIMEN Ordering Facility: [facility] Address: [address] [place] [address] Performed By: #### 2 4344-4 #### [facility] CLIA [id number] [address] [place] [address] [place] Eosinophils/100 WBC (Bld) 0.1 % Normal [facility] Comment on above: Order Comment: Speci men Type: VENOUS BLOOD SPECIMEN Ordering Facility: [facility] Address: [address] [place] [address] Performed By: #### 2 4344-4 #### [facility] CLIA [id number] [address] [place] [address] [place] Erythrocyte distribution width (RBC) [Ratio] 14.5 % Normal 11.5-15.0 [facility] Comment on above: Order Comment: Speci men Type: VENOUS BLOOD SPECIMEN Ordering Facility: [facility] Address: [address] [place] [address] Performed By: #### 2 4344-4 #### [facility] CLIA [id number] [address] [place] [address] [place] Hematocrit (Bld) [Volume fraction] 31.5 % Low 36.0-46.0 [facility] Comment on above: Order Comment: Speci men Type: VENOUS BLOOD SPECIMEN Ordering Facility: [facility] Address: [address] [place] [address] Performed By: #### 2 4344-4 #### [facility] CLIA [id number] [address] [place] [address] [place] Hemoglobin (Bld) [Mass/Vol] 10.0 g/dL Low 11.5-15.5 [facility] Comment on above: Order Comment: Speci men Type: VENOUS BLOOD SPECIMEN Ordering Facility: [facility] Address: [address] [place] [address] Performed By: #### 2 4344-4 #### [facility] CLIA [id number] [address] [place] [address] [place] Immature granulocytes (Bld) [#/Vol] 0.06 10*3/uL Normal <0.10 [facility] Comment on above: Order Comment: Speci men Type: VENOUS BLOOD SPECIMEN Ordering Facility: [facility] Address: [address] [place] [address] Performed By: #### 2 4344-4 #### [facility] CLIA [id number] [address] [place] [address] [place] Immature granulocytes/100 WBC (Bld) 0.7 % Normal [facility] Comment on above: Order Comment: Speci men Type: VENOUS BLOOD SPECIMEN Ordering Facility: [facility] Address: [address] [place] [address] Performed By: #### 2 4344-4 #### [facility] CLIA [id number] [address] [place] [address] [place] Lymphocytes (Bld) [#/Vol] 1.67 10*3/uL Normal 1.00-4.00 [facility] Comment on above: Order Comment: Speci men Type: VENOUS BLOOD SPECIMEN Ordering Facility: [facility] Address: [address] [place] [address] Performed By: #### 2 4344-4 #### [facility] CLIA [id number] [address] [place] [address] [place] Lymphocytes/100 WBC (Bld) 18.8 % Normal [facility] Comment on above: Order Comment: Speci men Type: VENOUS BLOOD SPECIMEN Ordering Facility: [facility] Address: [address] [place] [address] Performed By: #### 2 4344-4 #### [facility] CLIA [id number] [address] [place] [address] [place] MCH (RBC) [Entitic mass] 24.5 pg Low 26.0-34.0 [facility] Comment on above: Order Comment: Speci men Type: VENOUS BLOOD SPECIMEN Ordering Facility: [facility] Address: [address] [place] [address] Performed By: #### 2 4344-4 #### [facility] CLIA [id number] [address] [place] [address] [place] MCHC (RBC) [Mass/Vol] 31.7 g/dL Normal 30.5-36.0 [facility] Comment on above: Order Comment: Speci men Type: VENOUS BLOOD SPECIMEN Ordering Facility: [facility] Address: [address] [place] [address] Performed By: #### 2 4344-4 #### [facility] CLIA [id number] [address] [place] [address] [place] MCV (RBC) [Entitic vol] 77.2 fL Low 80.0-100.0 [facility] Comment on above: Order Comment: Speci men Type: VENOUS BLOOD SPECIMEN Ordering Facility: [facility] Address: [address] [place] [address] Performed By: #### 2 4344-4 #### [facility] CLIA [id number] [address] [place] [address] [place] Monocytes (Bld) [#/Vol] 0.71 10*3/uL Normal <0.87 [facility] Comment on above: Order Comment: Speci men Type: VENOUS BLOOD SPECIMEN Ordering Facility: [facility] Address: [address] [place] [address] Performed By: #### 2 4344-4 #### [facility] CLIA [id number] [address] [place] [address] [place] Monocytes/100 WBC (Bld) 8.0 % Normal [facility] Comment on above: Order Comment: Speci men Type: VENOUS BLOOD SPECIMEN Ordering Facility: [facility] Address: [address] [place] [address] Performed By: #### 2 4344-4 #### [facility] CLIA [id number] [address] [place] [address] [place] Neutrophils (Bld) [#/Vol] 6.39 10*3/uL Normal 1.45-7.50 [facility] Comment on above: Order Comment: Speci men Type: VENOUS BLOOD SPECIMEN Ordering Facility: [facility] Address: [address] [place] [address] Performed By: #### 2 4344-4 #### [facility] CLIA [id number] [address] [place] [address] [place] Neutrophils/100 WBC (Bld) 72.1 % Normal [facility] Comment on above: Order Comment: Speci men Type: VENOUS BLOOD SPECIMEN Ordering Facility: [facility] Address: [address] [place] [address] Performed By: #### 2 4344-4 #### [facility] CLIA [id number] [address] [place] [address] [place] Nucleated RBC (Bld) [#/Vol] 10*3/uL Normal <0.01 [facility] Comment on above: Order Comment: Speci men Type: VENOUS BLOOD SPECIMEN Ordering Facility: [facility] Address: [address] [place] [address] Performed By: #### 2 4344-4 #### [facility] CLIA [id number] [address] [place] [address] [place] Nucleated RBC/100 WBC (Bld) [Ratio] 0.0 /100 WBC Normal [facility] Comment on above: Order Comment: Speci men Type: VENOUS BLOOD SPECIMEN Ordering Facility: [facility] Address: [address] [place] [address] Performed By: #### 2 4344-4 #### [facility] CLIA [id number] [address] [place] [address] [place] Platelet mean volume (Bld) [Entitic vol] 11.3 fL Normal 9.0-12.7 [facility] Comment on above: Order Comment: Speci men Type: VENOUS BLOOD SPECIMEN Ordering Facility: [facility] Address: [address] [place] [address] Performed By: #### 2 4344-4 #### [facility] CLIA [id number] [address] [place] [address] [place] Platelets (Bld) [#/Vol] 316 10*3/uL Normal 150-400 [facility] Comment on above: Order Comment: Speci men Type: VENOUS BLOOD SPECIMEN Ordering Facility: [facility] Address: [address] [place] [address] Performed By: #### 2 4344-4 #### [facility] CLIA [id number] [place] [address] [place] RBC (Bld) [#/Vol] 4.08 10*6/uL Normal 3.90-5.20 [facility] Comment on above: Order Comment: Speci men Type: VENOUS BLOOD SPECIMEN Ordering Facility: [facility] Address: [address] [place] [address] Performed By: #### 2 4344-4 #### [facility] CLIA [id number] [address] [place] [address] [place] WBC (Bld) [#/Vol] 8.87 10*3/uL Normal 3.70-11.00 [facility] Comment on above: Order Comment: Speci men Type: VENOUS BLOOD SPECIMEN Ordering Facility: [facility] Address: [address] [place] [address] Performed By: #### 2 4344-4 #### [facility] CLIA [id number] [address] [place] [address] OF [facility] Comprehensive metabolic 2000 panelon 08-31-2023 Albumin [Mass/Vol] 3.7 g/dL Low 3.9-4.9 [facility] Comment on above: Order Comment: Speci men Type: BLOOD SPECIMEN Ordering Facility: [facility] Address: [address] [place] [address] Performed By: #### 2 4321-2 #### [facility] CLIA [id number] [address] [place] [address] [place] ALP [Catalytic activity/Vol] 99 U/L Normal 34-123 [facility] Comment on above: Order Comment: Speci men Type: BLOOD SPECIMEN Ordering Facility: [facility] Address: [address] [place] [address] Performed By: #### 2 4321-2 #### [facility] CLIA [id number] [address] [place] [address] [place] ALT [Catalytic activity/Vol] U/L Low 7-38 [facility] Comment on above: Order Comment: Speci men Type: BLOOD SPECIMEN Ordering Facility: [facility] Address: [address] [place] [address] Performed By: #### 2 4321-2 #### [facility] CLIA [id number] [place] [address] [place] Anion gap [Moles/Vol] 12 mmol/L Normal 9-18 [facility] Comment on above: Order Comment: Speci men Type: BLOOD SPECIMEN Ordering Facility: [facility] Address: [address] [place] [address] Performed By: #### 2 4321-2 #### [facility] CLIA [id number] [address] [place] [address] [place] AST [Catalytic activity/Vol] 7 U/L Low 13-35 [facility] Comment on above: Order Comment: Speci men Type: BLOOD SPECIMEN Ordering Facility: [facility] Address: [address] [place] [address] Performed By: #### 2 4321-2 #### [facility] CLIA [id number] [address] [place] [address] [place] Bilirubin [Mass/Vol] 0.3 mg/dL Normal 0.2-1.3 [facility] Comment on above: Order Comment: Speci men Type: BLOOD SPECIMEN Ordering Facility: [facility] Address: [address] [place] [address] Performed By: #### 2 4321-2 #### [facility] CLIA [id number] [address] [place] [address] [place] Calcium [Mass/Vol] 8.7 mg/dL Normal 8.5-10.2 [facility] Comment on above: Order Comment: Speci men Type: BLOOD SPECIMEN Ordering Facility: [facility] Address: [address] [place] [address] Performed By: #### 2 4321-2 #### [facility] CLIA [id number] [address] [place] [address] [place] Chloride [Moles/Vol] 99 mmol/L Normal 97-105 [facility] Comment on above: Order Comment: Speci men Type: BLOOD SPECIMEN Ordering Facility: [facility] Address: [address] [place] [address] Performed By: #### 2 4321-2 #### [facility] CLIA [id number] [address] [place] [address] [place] CO2 [Moles/Vol] 19 mmol/L Low 22-30 [facility] Comment on above: Order Comment: Speci men Type: BLOOD SPECIMEN Ordering Facility: [facility] Address: [address] [place] [address] Performed By: #### 2 4321-2 #### [facility] CLIA [id number] [address] [place] [address] [place] Creatinine [Mass/Vol] 2.15 mg/dL High 0.58-0.96 [facility] Comment on above: Order Comment: Speci men Type: BLOOD SPECIMEN Ordering Facility: [facility] Address: [address] [place] [address] Performed By: #### 2 4321-2 #### [facility] CLIA [id number] [address] [place] [address] [place] Creatinine and Glomerular filtration rate.predicted panel (S/P/Bld) 25 mL/min/1.73m??? Low >=60 [facility] Comment on above: Order Comment: Speci men Type: BLOOD SPECIMEN Ordering Facility: [facility] Address: [address] [place] [address] Result Comment: Donna mated Glomerular Filtration Rate [...] GFR. Performed By: #### 2 4321-2 #### [facility] CLIA [id number] [place] [address] [place] Glucose [Mass/Vol] 428 mg/dL High 74-99 [facility] Comment on above: Order Comment: Speci men Type: BLOOD SPECIMEN Ordering Facility: [facility] Address: [address] [place] [address] Result Comment: The [place] [employer] (ADA) provides guidance for cutoff [...] Standards of Medical Care in Diabetes 2016, [place] [employer]. Diabetes Care. 2016.39(Suppl 1). Performed By: #### 2 4321-2 #### [facility] CLIA [id number] [address] [place] [address] [place] Potassium [Moles/Vol] 5.2 mmol/L High 3.7-5.1 [facility] Comment on above: Order Comment: Speci men Type: BLOOD SPECIMEN Ordering Facility: [facility] Address: [address] [place] [address] Performed By: #### 2 4321-2 #### [facility] CLIA [id number] [address] [place] [address] [place] Protein [Mass/Vol] 9.1 g/dL High 6.3-8.0 [facility] Comment on above: Order Comment: Speci men Type: BLOOD SPECIMEN Ordering Facility: [facility] Address: [address] [place] [address] Performed By: #### 2 4321-2 #### [facility] CLIA [id number] [address] [place] [address] [place] Sodium [Moles/Vol] 130 mmol/L Low 136-144 [facility] Comment on above: Order Comment: Speci men Type: BLOOD SPECIMEN Ordering Facility: [facility] Address: [address] [place] [address] Performed By: #### 2 4321-2 #### [facility] CLIA [id number] [address] [place] [address] [place] Urea nitrogen [Mass/Vol] 39 mg/dL High 7- [facility] Comment on above: Order Comment: Speci men Type: BLOOD SPECIMEN Ordering Facility: [facility] Address: [address] [place] [address] Performed By: #### 2 4321-2 #### [facility] CLIA [id number] [place] ECG COMPLETEon 08-31-2023 ECG COMPLETE Ventricular Rate : 7 1 BPM Atrial Rate : 71 BPM P-R Interval : 166 ms QRS Duration : 80 ms Q-T Interval : 396 ms QTC Calculation(Bazett) : 431 ms Calculated P Gibbon : 82 degrees Calculated R Gibbon : 71 degrees Calculated T Gibbon : 48 degrees Sinus rhythm Normal ECG NO STEMI. 0752 Confirmed by MD DE LEON MICHAEL ([id number]), commercial production editor THERESA SEAY ([id number]) on 08/31/2023 1:24:15 PM NAME : AISLINN WHEELER PID : [id number] : 1960 Gender : Female Race : ORD : [id number] Procedure Date : Aug 31 2023 07:16:42 Edit Date : Aug 31 2023 13:24:16 Diagnosis: Sinus rhythm Normal ECG NO STEMI. 0752 Confirmed by MD DE LEON MICHAEL ([id number]), commercial production editor THERESA SEAY ([id number]) on 08/31/2023 1:24:15 PM Test Reason : Chest Pain Location : 402 : FVED fved05 Overread By : MD DE LEON MICHAEL Edited By : THERESA SEAY Referred By : , Acquired by : [id number], Normal [facility] ECG COMPLETE Ventricular Rate : 8 8 BPM Atrial Rate : 88 BPM P-R Interval : 153 ms QRS Duration : 78 ms Q-T Interval : 370 ms QTC Calculation(Bazett) : 448 ms Calculated P Gibbon : 85 degrees Calculated R Gibbon : 69 degrees Calculated T Gibbon : 62 degrees Sinus rhythm Normal ECG NO STEMI. 0604 Confirmed by KASIE SANDOVAL MD ([id number]), commercial production editor THERESA SEAY ([id number]) on 08/31/2023 1:02:55 PM NAME : AISLINN WHEELER PID : [id number] : 1960 Gender : Female Race : ORD : [id number] Procedure Date : Aug 31 2023 04:17:52 Edit Date : Aug 31 2023 13:02:57 Diagnosis: Sinus rhythm Normal ECG NO STEMI. 0604 Confirmed by KASIE SANDOVAL MD ([id number]), commercial production editor THERESA SEAY ([id number]) on 08/31/2023 1:02:55 PM Test Reason : Arrhythmia Location : 402 : FVED fved05 Overread By : KASIE SANDOVAL MD Edited By : THERESA SEAY Referred By : , Acquired by : [id number], Normal [facility] ED PROV NOTEon 08-31-2023 ED PROV NOTE HNO ID: [id number] Author: RAYNA RHODES PA-C Service: Emergency Medicine Author Type: Physician Packing Machine Operator Type: ED Provider Notes Filed: 08/31/2023 [...] left foot. Pt states she saw her ironworker and was directed to come to the [...] rarely occurring (more content not included)... Normal [facility] FLUABV+SARS-CoV-2+RSV Pnl Re sp ADRIEL+probeon 08-31-2023 FLUABV+SARS-CoV-2+RS V Pnl Resp ADRIEL+probe COVID 19 RESULT: Not detected The method used is RT-PCR or an equivalent NAAT method. Reference Range(the expected result in uninfected individuals): Not detected INFLUENZA A PCR: Not detected INFLUENZA B PCR: Not detected RSV PCR: Not detected Normal [facility] Comment on above: Performed By: #### 9 5941-1 ####[facility] [id number] [place] [address] [place] Gas and Carbon monoxide pane l (BldV)on 08-31-2023 BASE DEFICIT, VENOUS -5 mmol/L Low -2-0 [facility] Comment on above: Order Comment: Speci men Type: VENOUS BLOOD SPECIMEN Ordering Facility: [facility] Address: [address] [place] [address] Performed By: #### 2 4344-4 #### [facility] CLIA [id number] [address] [place] [address] [place] Body temperature 100.04 [degF] Normal [facility] Comment on above: Order Comment: Speci men Type: VENOUS BLOOD SPECIMEN Ordering Facility: [facility] Address: [address] [place] [address] Performed By: #### 2 4344-4 #### [facility] CLIA [id number] [address] [place] [address] [place] Calcium.ionized (Bld) [Mass/Vol] 1.08 mmol/L Normal 1.08-1.30 [facility] Comment on above: Order Comment: Speci men Type: VENOUS BLOOD SPECIMEN Ordering Facility: [facility] Address: [address] [place] [address] Performed By: #### 2 4344-4 #### [facility] CLIA [id number] [address] [place] [address] [place] Calcium.ionized adjusted to pH 7.4 (BldA) [Moles/Vol] 1.06 mmol/L Low 1.08-1.30 [facility] Comment on above: Order Comment: Speci men Type: VENOUS BLOOD SPECIMEN Ordering Facility: [facility] Address: [address] [place] [address] Performed By: #### 2 4344-4 #### [facility] CLIA [id number] [address] [place] [address] [place] Carboxyhemoglobin (BldV) [Mass fraction] 3.8 % High 0.0-2.0 [facility] Comment on above: Order Comment: Speci men Type: VENOUS BLOOD SPECIMEN Ordering Facility: [facility] Address: [address] [place] [address] Result Comment: Carb oxyhemoglobin Reference Range for Smokers: 2.0-8.0% Performed By: #### 2 4344-4 #### [facility] CLIA [id number] [address] [place] [address] [place] Chloride [Moles/Vol] 106 mmol/L High 97-105 [facility] Comment on above: Order Comment: Speci men Type: VENOUS BLOOD SPECIMEN Ordering Facility: [facility] Address: [address] [place] [address] Performed By: #### 2 4344-4 #### [facility] CLIA [id number] [place] [address] [place] CO2 (BldV) [Partial pressure] 35 mm[Hg] Low 42-55 [facility] Comment on above: Order Comment: Speci men Type: VENOUS BLOOD SPECIMEN Ordering Facility: [facility] Address: [address] [place] [address] Performed By: #### 2 4344-4 #### [facility] CLIA [id number] [address] [place] [address] [place] CO2 adjusted to patient's actual temperature (BldV) [Partial pressure] Normal [facility] Comment on above: Order Comment: Speci men Type: VENOUS BLOOD SPECIMEN Ordering Facility: [facility] Address: [address] [place] [address] Performed By: #### 2 4344-4 #### [facility] CLIA [id number] [address] [place] [address] [place] Glucose [Mass/Vol] 460 mg/dL High 60-105 [facility] Comment on above: Order Comment: Speci men Type: VENOUS BLOOD SPECIMEN Ordering Facility: [facility] Address: [address] [place] [address] Performed By: #### 2 4344-4 #### [facility] CLIA [id number] [address] [place] [address] [place] HCO3 (Bld) [Moles/Vol] 19 mmol/L Low 24-28 [facility] Comment on above: Order Comment: Speci men Type: VENOUS BLOOD SPECIMEN Ordering Facility: [facility] Address: [address] [place] [address] Performed By: #### 2 4344-4 #### [facility] CLIA [id number] [address] [place] [address] [place] Hematocrit (Bld) [Volume fraction] 29.7 % Low 36.0-46.0 [facility] Comment on above: Order Comment: Speci men Type: VENOUS BLOOD SPECIMEN Ordering Facility: [facility] Address: [address] [place] [address] Performed By: #### 2 4344-4 #### [facility] CLIA [id number] [address] [place] [address] [place] Hemoglobin (Bld) [Mass/Vol] 9.6 g/dL Low 11.5-15.5 [facility] Comment on above: Order Comment: Speci men Type: VENOUS BLOOD SPECIMEN Ordering Facility: [facility] Address: [address] [place] [address] Performed By: #### 2 4344-4 #### [facility] CLIA [id number] [address] [place] [address] [place] Lactate [Moles/Vol] 1.1 mmol/L Normal 0.5-2.2 [facility] Comment on above: Order Comment: Speci men Type: VENOUS BLOOD SPECIMEN Ordering Facility: [facility] Address: [address] [place] [address] Performed By: #### 2 4344-4 #### [facility] CLIA [id number] [address] [place] [address] [place] Methemoglobin (Bld) [Mass fraction] 1.1 % Normal 0.0-1.5 [facility] Comment on above: Order Comment: Speci men Type: VENOUS BLOOD SPECIMEN Ordering Facility: [facility] Address: [address] [place] [address] Performed By: #### 2 4344-4 #### [facility] CLIA [id number] [address] [place] [address] [place] O2 THERAPY RA=Room Air Normal [facility] Comment on above: Order Comment: Speci men Type: VENOUS BLOOD SPECIMEN Ordering Facility: [facility] Address: [address] [place] [address] Performed By: #### 2 4344-4 #### [facility] CLIA [id number] [address] [place] [address] [place] Oxygen (BldV) [Partial pressure] 118 mm[Hg] High 35-45 [facility] Comment on above: Order Comment: Speci men Type: VENOUS BLOOD SPECIMEN Ordering Facility: [facility] Address: [address] [place] [address] Performed By: #### 2 4344-4 #### [facility] CLIA [id number] [address] [place] [address] [place] Oxygen adjusted to patient's actual temperature (BldV) [Partial pressure] Normal [facility] Comment on above: Order Comment: Speci men Type: VENOUS BLOOD SPECIMEN Ordering Facility: [facility] Address: [address] [place] [address] Performed By: #### 2 4344-4 #### [facility] CLIA [id number] [address] [place] [address] [place] Oxygen saturation in Venous blood 99 % High 60-85 [facility] Comment on above: Order Comment: Speci men Type: VENOUS BLOOD SPECIMEN Ordering Facility: [facility] Address: [address] [place] [address] Performed By: #### 2 4344-4 #### [facility] CLIA [id number] [address] [place] [address] [place] Oxyhemoglobin (BldV) [Mass fraction] 94 % High 60-85 [facility] Comment on above: Order Comment: Speci men Type: VENOUS BLOOD SPECIMEN Ordering Facility: [facility] Address: [address] [place] [address] Performed By: #### 2 4344-4 #### [facility] CLIA [id number] [address] [place] [address] [place] pH (BldV) 7.37 [pH] Normal 7.32-7.42 [facility] Comment on above: Order Comment: Speci men Type: VENOUS BLOOD SPECIMEN Ordering Facility: [facility] Address: [address] [place] [address] Performed By: #### 2 4344-4 #### [facility] CLIA [id number] [address] [place] [address] [place] pH adjusted to patient's actual temperature (BldV) Normal [facility] Comment on above: Order Comment: Speci men Type: VENOUS BLOOD SPECIMEN Ordering Facility: [facility] Address: [address] [place] [address] Performed By: #### 2 4344-4 #### [facility] CLIA [id number] [address] [place] [address] [place] [facility] Potassium [Moles/Vol] 5.3 mmol/L High 3.5-5.0 [facility] Comment on above: Order Comment: Speci men Type: VENOUS BLOOD SPECIMEN Ordering Facility: [facility] Address: [address] [place] [address] Performed By: #### 2 4344-4 #### [facility] CLIA [id number] [address] [place] [address] [place] Sodium [Moles/Vol] 133 mmol/L Low 136-144 [facility] Comment on above: Order Comment: Speci men Type: VENOUS BLOOD SPECIMEN Ordering Facility: [facility] Address: [address] [place] [address] Performed By: #### 2 4344-4 #### [facility] CLIA [id number] [address] [place] [address] [place] HISTORY PHYSICALon HISTORY PHYSICAL HNO ID: [id number] Author: ANTHONY BARROW MD Service: Hospital Medicine [...] left foot ulcer that patient was seen ironworker as outpatient for and advised her to [...] nts 08/31/23 1115 activity - mobilize patient ([place], [place]) VTE Prophylaxis: VTE prophylaxis appropriate SIGNATURE: Anthony Barrow MD PATIENT NAME: Aislinn Wheeler DATE: August 31, 2023 TIME: 11:03 AM PAGER/CONTACT #: Normal [facility] KETONES/ACETONE/BHBon 2023 Beta hydroxybutyrate [Moles/Vol] 0.50 mmol/L High <0.28 [facility] Comment on above: Order Comment: Speci men Type: BLOOD SPECIMEN Ordering Facility: [facility] Address: [address] [place], [place] [id number] Performed By: #### 2 4321-2 #### [facility] CLIA [id number] [place] [address] [place] POTASSIUM BLDon 08-31-2023 Potassium [Moles/Vol] 4.6 mmol/L Normal 3.7-5.1 [facility] Comment on above: Order Comment: Speci men Type: BLOOD SPECIMEN Ordering Facility: [facility] Address: [address] [place] [address] Performed By: #### 2 4321-2 #### [facility] CLIA [id number] [address] [place] [address] [place] SEPSIS LACTATEon 08-31-2023 Lactate [Moles/Vol] 1.2 mmol/L Normal 0.0-2.0 [facility] Comment on above: Order Comment: Speci men Type: VENOUS BLOOD SPECIMEN Ordering Facility: [facility] Address: [address] [place] [address] Performed By: #### 2 4344-4 #### [facility] CLIA [id number] [address] [place] [address] [place] Urinalysis complete panel (U )on 08-31-2023 Bacteria LM.HPF (Urine sed) [#/Area] Many Abnormal None Seen [facility] Comment on above: Order Comment: Speci men Type: URINE SPECIMEN Ordering Facility: [facility] Address: [address] [place] [address] Performed By: #### 2 4356-8 #### [facility] CLIA [id number] [address] [place] [address] [place] Bilirubin Ql (U) Negative Normal Negative [facility] Comment on above: Order Comment: Speci men Type: URINE SPECIMEN Ordering Facility: [facility] Address: [address] [place] [address] Performed By: #### 2 4356-8 #### [facility] CLIA [id number] [address] [place] [address] [place] Clarity (Unsp spec) Turbid Abnormal Clear [facility] Comment on above: Order Comment: Speci men Type: URINE SPECIMEN Ordering Facility: [facility] Address: [address] [place] [address] Performed By: #### 2 4356-8 #### [facility] CLIA [id number] [address] [place] [address] [place] Color (U) Light Yellow Normal Yellow [facility] Comment on above: Order Comment: Speci men Type: URINE SPECIMEN Ordering Facility: [facility] Address: [address] [place] [address] Performed By: #### 2 4356-8 #### [facility] CLIA [id number] [address] [place] [address] [place] Glucose Test strip (U) [Mass/Vol] 4+ Abnormal Trace, Negative [facility] Comment on above: Order Comment: Speci men Type: URINE SPECIMEN Ordering Facility: [facility] Address: [address] [place] [address] Performed By: #### 2 4356-8 #### [facility] CLIA [id number] [address] [place] [address] [place] Hemoglobin Ql (U) Trace Normal Negative, Trace [facility] Comment on above: Order Comment: Speci men Type: URINE SPECIMEN Ordering Facility: [facility] Address: [address] [place] [address] Performed By: #### 2 4356-8 #### [facility] CLIA [id number] [address] [place] [address] [place] Ketones Ql (U) Negative Normal Negative, Trace [facility] Comment on above: Order Comment: Speci men Type: URINE SPECIMEN Ordering Facility: [facility] Address: [address] [place] [address] Performed By: #### 2 4356-8 #### [facility] CLIA [id number] [address] [place] [address] [place] Leukocyte esterase Test strip Ql (U) 500 Yuan/uL Abnormal Negative, 25 Yuan/uL [facility] Comment on above: Order Comment: Speci men Type: URINE SPECIMEN Ordering Facility: [facility] Address: [address] [place] [address] Performed By: #### 2 4356-8 #### [facility] CLIA [id number] [address] [place] [address] [place] Nitrite Ql (U) Negative Normal Negative [facility] Comment on above: Order Comment: Speci men Type: URINE SPECIMEN Ordering Facility: [facility] Address: [address] [place] [address] Performed By: #### 2 4356-8 #### [facility] CLIA [id number] [address] [place] [address] [place] pH (U) 6.0 [pH] Normal 5.0-8.0 [facility] Comment on above: Order Comment: Speci men Type: URINE SPECIMEN Ordering Facility: [facility] Address: [address] [place] [address] Performed By: #### 2 4356-8 #### [facility] CLIA [id number] [address] [place] [address] [place] Protein (U) [Mass/Vol] 1+ Abnormal Trace, Negative [facility] Comment on above: Order Comment: Speci men Type: URINE SPECIMEN Ordering Facility: [facility] Address: [address] [place] [address] Performed By: #### 2 4356-8 #### [facility] CLIA [id number] [address] [place] [address] [place] RBC LM.HPF (Urine sed) [#/Area] 3-5 /HPF Abnormal 0-3 /HPF [facility] Comment on above: Order Comment: Speci men Type: URINE SPECIMEN Ordering Facility: [facility] Address: [address] [place] [address] Performed By: #### 2 4356-8 #### [facility] CLIA [id number] [address] [place] [address] [place] Specific gravity (U) [Rel density] 1.017 Normal 1.005-1.030 [facility] Comment on above: Order Comment: Speci men Type: URINE SPECIMEN Ordering Facility: [facility] Address: [address] [place] [address] Performed By: #### 2 4356-8 #### [facility] CLIA [id number] [address] [place] [address] [place] Urobilinogen Ql (U) Negative Normal Negative [facility] Comment on above: Order Comment: Speci men Type: URINE SPECIMEN Ordering Facility: [facility] Address: [address] [place] [address] Performed By: #### 2 4356-8 #### [facility] CLIA [id number] [address] [place] [id number] [place] WBC LM.HPF (Urine sed) [#/Area] /[HPF] Abnormal 0-5 /HPF [facility] Comment on above: Order Comment: Speci men Type: URINE SPECIMEN Ordering Facility: [facility] Address: [facility] [address] Performed By: #### 2 4356-8 #### [facility] CLIA [id number] [address] [place] [id number] [place] XR CHEST 1V [...] Fatigue and malaise, Fatigue and malaise (accession [id number]), Osteomyelitis (accession [id number]) MQ: XC1_5 Comparison: CT 01/17/2021, radiograph 01/17/2021 [...] performed for increased sensitivity, as clinically warranted. Shipfitter Apprentice: GUILLE Transcribe Date/Time: Aug 31 2023 4:46A Dictated by : TAURUS MORTON MD This examination was interpreted and the report reviewed and electronically signed by: TAURUS MORTON MD on Aug 31 2023 4:51AM EST [id number] [facility] XR FOOT 3V AP/LAT/OBL LTon 0 [...] Fatigue and malaise, Fatigue and malaise (accession [id number]), Osteomyelitis (accession [id number]) MQ: XC1_5 Comparison: CT 01/17/2021, radiograph 01/17/2021 [...] performed for increased sensitivity, as clinically warranted. Shipfitter Apprentice: PSCB Transcribe Date/Time: Aug 31 2023 4:46A Dictated by : TAURUS MORTON MD This examination was interpreted and the report reviewed and electronically signed by: TAURUS MORTON MD on Aug 31 2023 4:51AM EST [id number] [facility] Benzodiazepines Screen Ql (U )on 08-09-2023 Benzodiazepines Ql (U) Negative Normal NEG [facility] Comment on above: Result Comment: Lenny odiazepines screening cut off value = 200 ng/mL This report is intended for use in clinical monitoring or management of patients. Performed By: #### 1 4316-4 #### [facility] ([id number]) [address] [place] [address] CCL GENERIC ORDERon 08-09-20 23 TEST NAME UQNTPP URINE PAIN PA VEGA QUANT Normal [facility] Comment on above: Result Comment: Wesley ected on 08/09 AT 1743: Previously reported as UQNTPP Performed By: #### C GO #### [facility] ([id number]) [address] [place] [address] TEST RESULT See Below Normal [facility] Comment on above: Result Comment: NOTE TEST RESULT FLAG UNIT REF.RANGE ----- Specimen Validity Quality See below Specimen quality results within acceptable limits Specimen Validity Creatinine 31.8 mg/dL 20.0-300.0 Specimen Validity PH 5.4 4.5-8.0 Specimen Validity Specific [place] 1.006 1.003-1.035 Specimen Validity Oxidants <38 mg/L [...] carboxylic acid (THCA) is a metabolite of yngvr-5-eiiqwuueavdlvkkmxnbu which is the main active component of marijuana. Fentanyl, Urine <6 ng/mL <6 Buprenorphine, Ur <20 ng/mL <20 Methadone Urine <16 ng/mL <16 Methadone metabolite Urine <6 ng/mL <6 EDDP is a metabolite of methadone. Note See Below This test is for medical use only. This test was developed and its performance characteristics determined by [facility]'s Taurus Aneesh [facility] Pathology and Laboratory Medicine [place] ([facility]). It has not been cleared or approved by the FDA. [facility] is regulated under CLIA as qualified to perform high-complexity testing. This test is used for clinical purposes. It should not be regarded as investigational or for research. URINE PAIN PANEL QUANT Test Performed By: [facility] [address] [place] [address] Chopper Operator: Jeyson Linares III #[id number] Performed By: #### C GO #### [facility] ([id number]) [address] [facility], [place] [address] Operative Reporton Operative Report [id number]#1.00T IFF Normal [facility] Pathology Noteon 08-07-2023 Pathology Note [id number]#1.00 TIFF Normal [facility] ED Note-Physicianon 06-29-20 23 ED Note-Physician [id number]#1.00T IFF Normal [facility] Patient Letter FTMCon 2022 Patient Letter [facility] (Inserted Image. Grecia ble to display) June 28, 2023 AISLINN WHEELER [address] [place] [id number] : 1960 Dear Aislinn, You missed your [...] [facility] [address], [place] [address] Pt called and RS'd. Normal [facility] Basic metabolic 2000 panelon 06-23-2023 Anion gap [Moles/Vol] 9 mmol/L Normal - [facility] Comment on above: Order Comment: Speci men Type: VENOUS BLOOD SPECIMEN Ordering Facility: [facility] Address: [address] [place] [address] Performed By: #### 2 4344-4 #### [facility] CLIA [id number] [address] [place] [address] [place] Calcium [Mass/Vol] 7.3 mg/dL Low 8.5-10.2 [facility] Comment on above: Order Comment: Speci men Type: VENOUS BLOOD SPECIMEN Ordering Facility: [facility] Address: [address] [place] [address] Performed By: #### 2 4344-4 #### [facility] CLIA [id number] [address] [place] [address] [place] Chloride [Moles/Vol] 110 mmol/L High 97-105 [facility] Comment on above: Order Comment: Speci men Type: VENOUS BLOOD SPECIMEN Ordering Facility: [facility] Address: [address] [place] [address] Performed By: #### 2 4344-4 #### [facility] CLIA [id number] [address] [place] [address] [place] CO2 [Moles/Vol] 19 mmol/L Low 22-30 [facility] Comment on above: Order Comment: Speci men Type: VENOUS BLOOD SPECIMEN Ordering Facility: [facility] Address: [address] [place] [address] Performed By: #### 2 4344-4 #### [facility] CLIA [id number] [address] [place] [address] [place] Creatinine [Mass/Vol] 1.39 mg/dL High 0.58-0.96 [facility] Comment on above: Order Comment: Speci men Type: VENOUS BLOOD SPECIMEN Ordering Facility: [facility] Address: [address] [place] [address] Performed By: #### 2 4344-4 #### [facility] CLIA [id number] [address] [place] [address] [place] Creatinine and Glomerular filtration rate.predicted panel (S/P/Bld) 42 mL/min/1.73m??? Low >=60 [facility] Comment on above: Order Comment: [place] Type: VENOUS BLOOD SPECIMEN Ordering Facility: [facility] Address: [address] [place] [address] Result Comment: Donna mated Glomerular Filtration Rate [...] GFR. Performed By: #### 2 4344-4 #### [facility] CLIA [id number] [address] [place] [address] [place] Glucose [Mass/Vol] 157 mg/dL High 74-99 [facility] Comment on above: Order Comment: [place] Type: VENOUS BLOOD SPECIMEN Ordering Facility: [facility] Address: [address] [place] [address] Result Comment: The [place] Diabetes Association (ADA) provides guidance for cutoff [...] Standards of Medical Care in Diabetes 2016, [place] [employer]. Diabetes Care. 2016.39(Suppl 1). Performed By: #### 2 4344-4 #### [facility] CLIA [id number] [place] [address] [place] Potassium [Moles/Vol] 5.1 mmol/L Normal 3.7-5.1 [facility] Comment on above: Order Comment: [place] Type: VENOUS BLOOD SPECIMEN Ordering Facility: [facility] Address: [address] [place] [address] Performed By: #### 2 4344-4 #### [facility] CLIA [id number] [address] [place] [address] [place] Sodium [Moles/Vol] 138 mmol/L Normal 136-144 [facility] Comment on above: Order Comment: Speci men Type: VENOUS BLOOD SPECIMEN Ordering Facility: [facility] Address: [address] [place] [address] Performed By: #### 2 4344-4 #### [facility] CLIA [id number] [address] [place] [address] [place] Urea nitrogen [Mass/Vol] 21 mg/dL Normal 7-21 [facility] Comment on above: Order Comment: Speci men Type: VENOUS BLOOD SPECIMEN Ordering Facility: [facility] Address: [address] [place] [address] Performed By: #### 2 4344-4 #### [facility] CLIA [id number] [address] [place] [address] [place] CBC panel Auto (Bld)on 06-23 Erythrocyte distribution width (RBC) [Ratio] 14.4 % Normal 11.5-15.0 [facility] Comment on above: Order Comment: Speci men Type: BLOOD SPECIMEN Ordering Facility: [facility] Address: [address] [place] [address] Performed By: #### 5 8410-2 #### [facility] CLIA [id number] [address] [place] [address] [place] Hematocrit (Bld) [Volume fraction] 28.5 % Low 36.0-46.0 [facility] Comment on above: Order Comment: Speci men Type: BLOOD SPECIMEN Ordering Facility: [facility] Address: [address] [place] [address] Performed By: #### 5 8410-2 #### [facility] CLIA [id number] [address] [place] [address] [place] Hemoglobin (Bld) [Mass/Vol] 9.0 g/dL Low 11.5-15.5 [facility] Comment on above: Order Comment: Speci men Type: BLOOD SPECIMEN Ordering Facility: [facility] Address: [address] [place] [address] Performed By: #### 5 8410-2 #### [facility] CLIA [id number] [address] [place] [address] [place] MCH (RBC) [Entitic mass] 25.2 pg Low 26.0-34.0 [facility] Comment on above: Order Comment: Speci men Type: BLOOD SPECIMEN Ordering Facility: [facility] Address: [address] [place] [address] Performed By: #### 5 8410-2 #### [facility] CLIA [id number] [address] [place] [address] [place] MCHC (RBC) [Mass/Vol] 31.6 g/dL Normal 30.5-36.0 [facility] Comment on above: Order Comment: Speci men Type: BLOOD SPECIMEN Ordering Facility: [facility] Address: [address] [place] [address] Performed By: #### 5 8410-2 #### [facility] CLIA [id number] [address] [place] [address] [place] MCV (RBC) [Entitic vol] 79.8 fL Low 80.0-100.0 [facility] Comment on above: Order Comment: Speci men Type: BLOOD SPECIMEN Ordering Facility: [facility] Address: [address] [place] [address] Performed By: #### 5 8410-2 #### [facility] CLIA [id number] [address] [place] [address] [place] Nucleated RBC (Bld) [#/Vol] 10*3/uL Normal <0.01 [facility] Comment on above: Order Comment: Speci men Type: BLOOD SPECIMEN Ordering Facility: [facility] Address: [address] [place] [address] Performed By: #### 5 8410-2 #### [facility] CLIA [id number] [address] [place] [address] [place] Platelet mean volume (Bld) [Entitic vol] 10.6 fL Normal 9.0-12.7 [facility] Comment on above: Order Comment: Speci men Type: BLOOD SPECIMEN Ordering Facility: [facility] Address: [address] [place] [address] Performed By: #### 5 8410-2 #### [facility] CLIA [id number] [place] Platelets (Bld) [#/Vol] 251 10*3/uL Normal 150-400 [facility] Comment on above: Order Comment: Speci men Type: BLOOD SPECIMEN Ordering Facility: [facility] Address: [address] [place] [address] Performed By: #### 5 8410-2 #### [facility] CLIA [id number] [place] [address] [place] RBC (Bld) [#/Vol] 3.57 10*6/uL Low 3.90-5.20 [facility] Comment on above: Order Comment: Speci men Type: BLOOD SPECIMEN Ordering Facility: [facility] Address: [address] [place] [address] Performed By: #### 5 8410-2 #### [facility] CLIA [id number] [address] [place] [address] [place] WBC (Bld) [#/Vol] 7.47 10*3/uL Normal 3.70-11.00 [facility] Comment on above: Order Comment: Speci men Type: BLOOD SPECIMEN Ordering Facility: [facility] Address: [address] [place] [address] Performed By: #### 5 8410-2 #### [facility] CLIA [id number] [place] [address] [place] CNDSon 06-23-2023 CNDS HNO ID: [id number] Author: Annie Martinez APRN.CERTIFIED MEDICAL BILLER Service: Urology Author Type: Nurse Practitioner Type: [...] this patient's care. Taurus Ballard MD [facility] [place] [phone] or [phone] [facility] C O N F I D E N T I A L I N F O R M A T I O N ------ [facility] DOCUMENT DISCHARGE SUMMARY Patient Name: Aislinn Wheeler [...] Your Medications These medications were sent to [facility] [address] [place] [address] Hours: Monday-Monday: 7am-7pm, Sat: 9am-1pm acetaminophen 325 mg tablet docusate sodium 100 mg capsule Future Appointments: No future appointments. Electronically SIGNED by Licensed Independent Practitioner: Annie Martinez [facility]N.[facility] Telephone (URR) LIAMAISLINN ([id number]) 1960 F Date Time Provider Department 06/23/23 HEIDY GARCIA During your visit today, we recorded the following information about you: Heidy Garcia RN 06/23/2023 9:05 AM Signed Patient had left robotic partial nephrectomy by Dr. Ballard on 06/22/2023 Will call for surgical follow up once discharged Heidy Garcia RN 06/26/2023 10:45 AM Signed Patient phone number non functioning. Active in [employer], will send message inquiring on how she's feeling post-operatively. Vonnie Wilder RN 06/27/2023 10:15 AM Signed Spoke with grand daughter, Chloe, as this office is unable to reach patient for post op call. Chloe reports, that patient's phone is turned off, and she does not know how to use [employer]. Chloe reports that patient went to [facility] due to excruciating pain -was given [...] Encounter Status:Closed by HEIDY GARCIA on 06/23/23 [facility] NURSING PROGon 06-23-2023 NURSING PROG HNO ID: [id number] Author: Sweta Cordova RN Service: ? Author [...] Annie Martinez, awaiting PRN order of hydralazine. [facility] ANES POSTPROC EVALon 023 ANES POSTPROC EVAL HNO ID: [id number] Author: Rikki Jhaveri MD Service: Anesthesiology Author Type: Anesthesiologist Type: Anesthesia Postprocedure Evaluation Filed: 06/22/2023 2:18 PM Note Text: POST ANESTHESIA EVALUATION NOTE : 1960 Procedure Summary Date: 06/22/23 Room / Location: [place] [address] / OR Anesthesia Start: 1107 Anesthesia Stop: [...] June 22, 2023 TIME: 2:18 PM CSN: [id number] [facility] ANES PRE-OPon 06-22-2023 ANES PRE-OP HNO ID: [id number] Author: Rikki Jhaveri MD Service: Anesthesiology Author [...] and consent discussed: yes. Patient / Responsible Constitution Party agrees to proceed: yes Patient / Surrogate [...] June 22, 2023 TIME: 9:54 AM CSN: [id number] Normal [facility] Basic metabolic 2000 panelon 06-22-2023 Anion gap [Moles/Vol] 7 mmol/L Low 9-18 [facility] Comment on above: Order Comment: Speci men Type: BLOOD SPECIMEN Ordering Facility: [facility] Address: [address] [place] [address] Performed By: #### 2 4321-2 #### [facility] CLIA [id number] [address] [place] [address] [place] Calcium [Mass/Vol] 7.5 mg/dL Low 8.5-10.2 [facility] Comment on above: Order Comment: Speci men Type: BLOOD SPECIMEN Ordering Facility: [facility] Address: [address] [place] [address] Performed By: #### 2 4321-2 #### [facility] CLIA [id number] [address] [place] [address] [place] Chloride [Moles/Vol] 108 mmol/L High 97-105 [facility] Comment on above: Order Comment: Speci men Type: BLOOD SPECIMEN Ordering Facility: [facility] Address: [address] [place] [address] Performed By: #### 2 4321-2 #### [facility] CLIA [id number] [address] [place] [address] [place] CO2 [Moles/Vol] 19 mmol/L Low 22-30 [facility] Comment on above: Order Comment: Speci men Type: BLOOD SPECIMEN Ordering Facility: [facility] Address: [address] [place] [address] Performed By: #### 2 4321-2 #### [facility] CLIA [id number] [address] [place] [address] [place] Creatinine [Mass/Vol] 1.57 mg/dL High 0.58-0.96 [facility] Comment on above: Order Comment: Speci men Type: BLOOD SPECIMEN Ordering Facility: [facility] Address: [address] [place] [address] Performed By: #### 2 4321-2 #### [facility] CLIA [id number] [address] [place] [address] [place] Creatinine and Glomerular filtration rate.predicted panel (S/P/Bld) 36 mL/min/1.73m??? Low >=60 [facility] Comment on above: Order Comment: [place] Type: BLOOD SPECIMEN Ordering Facility: [facility] Address: [address] [place] [address] Result Comment: Donna mated Glomerular Filtration Rate [...] GFR. Performed By: #### 2 4321-2 #### [facility] CLIA [id number] [place] [address] [place] Glucose [Mass/Vol] 275 mg/dL High 74-99 [facility] Comment on above: Order Comment: [place] Type: BLOOD SPECIMEN Ordering Facility: [facility] Address: [address] [place] [address] Result Comment: The [place] Diabetes Association (ADA) provides guidance for cutoff [...] Standards of Medical Care in Diabetes 2016, [place] [employer]. Diabetes Care. 2016.39(Suppl 1). Performed By: #### 2 4321-2 #### [facility] CLIA [id number] [place] [address] [place] Potassium [Moles/Vol] 5.3 mmol/L High 3.7-5.1 [facility] Comment on above: Order Comment: [place] Type: BLOOD SPECIMEN Ordering Facility: [facility] Address: [address] [place] [address] Performed By: #### 2 4321-2 #### [facility] CLIA [id number] [address] [place] [address] [place] Sodium [Moles/Vol] 134 mmol/L Low 136-144 [facility] Comment on above: Order Comment: Speci men Type: BLOOD SPECIMEN Ordering Facility: [facility] Address: [address] [place] [address] Performed By: #### 2 4321-2 #### [facility] CLIA [id number] [address] [place] [address] [place] Urea nitrogen [Mass/Vol] 26 mg/dL High 7-21 [facility] Comment on above: Order Comment: Speci men Type: BLOOD SPECIMEN Ordering Facility: [facility] Address: [address] [place] [address] Performed By: #### 2 4321-2 #### [facility] CLIA [id number] [address] [place] [address] [place] CBC panel Auto (Bld)on 06-22 Erythrocyte distribution width (RBC) [Ratio] 14.3 % Normal 11.5-15.0 [facility] Comment on above: Order Comment: Speci men Type: BLOOD SPECIMEN Ordering Facility: [facility] Address: [address] [place] [address] Performed By: #### 2 4321-2 #### [facility] CLIA [id number] [address] [place] [address] [place] Hematocrit (Bld) [Volume fraction] 27.8 % Low 36.0-46.0 [facility] Comment on above: Order Comment: Speci men Type: BLOOD SPECIMEN Ordering Facility: [facility] Address: [address] [place] [address] Performed By: #### 2 4321-2 #### [facility] CLIA [id number] [address] [place] [address] [place] Hemoglobin (Bld) [Mass/Vol] 8.9 g/dL Low 11.5-15.5 [facility] Comment on above: Order Comment: Speci men Type: BLOOD SPECIMEN Ordering Facility: [facility] Address: [address] [place] [address] Performed By: #### 2 4321-2 #### [facility] CLIA [id number] [address] [place] [address] [place] MCH (RBC) [Entitic mass] 25.3 pg Low 26.0-34.0 [facility] Comment on above: Order Comment: Speci men Type: BLOOD SPECIMEN Ordering Facility: [facility] Address: [address] [place] [address] Performed By: #### 2 4321-2 #### [facility] CLIA [id number] [address] [place] [address] [place] MCHC (RBC) [Mass/Vol] 32.0 g/dL Normal 30.5-36.0 [facility] Comment on above: Order Comment: Speci men Type: BLOOD SPECIMEN Ordering Facility: [facility] Address: [address] [place] [address] Performed By: #### 2 4321-2 #### [facility] CLIA [id number] [address] [place] [address] [place] MCV (RBC) [Entitic vol] 79.0 fL Low 80.0-100.0 [facility] Comment on above: Order Comment: Speci men Type: BLOOD SPECIMEN Ordering Facility: [facility] Address: [address] [place] [address] Performed By: #### 2 4321-2 #### [facility] CLIA [id number] [address] [place] [address] [place] Nucleated RBC (Bld) [#/Vol] 10*3/uL Normal <0.01 [facility] Comment on above: Order Comment: Speci men Type: BLOOD SPECIMEN Ordering Facility: [facility] Address: [address] [place] [address] Performed By: #### 2 4321-2 #### [facility] CLIA [id number] [address] [place] [address] [place] Platelet mean volume (Bld) [Entitic vol] 10.8 fL Normal 9.0-12.7 [facility] Comment on above: Order Comment: Speci men Type: BLOOD SPECIMEN Ordering Facility: [facility] Address: [address] [place] [address] Performed By: #### 2 4321-2 #### [facility] CLIA [id number] [place] [address] [place] Platelets (Bld) [#/Vol] 230 10*3/uL Normal 150-400 [facility] Comment on above: Order Comment: Speci men Type: BLOOD SPECIMEN Ordering Facility: [facility] Address: [address] [place] [address] Performed By: #### 2 4321-2 #### [facility] CLIA [id number] [address] [place] [address] [place] RBC (Bld) [#/Vol] 3.52 10*6/uL Low 3.90-5.20 [facility] Comment on above: Order Comment: Speci men Type: BLOOD SPECIMEN Ordering Facility: [facility] Address: [address] [place] [address] Performed By: #### 2 4321-2 #### [facility] CLIA [id number] [address] [place] [address] [place] WBC (Bld) [#/Vol] 6.04 10*3/uL Normal 3.70-11.00 [facility] Comment on above: Order Comment: Speci men Type: BLOOD SPECIMEN Ordering Facility: [facility] Address: [address] [place] [address] Performed By: #### 2 4321-2 #### [facility] CLIA [id number] [address] [place] [address] [place] NURSING PROGon 06-22-2023 NURSING PROG HNO ID: [id number] Author: Afia Lanier RN Service: Nursing Author Type: Registered Nurse Type: Nursing Progress Note Filed: 06/22/2023 5:56 PM Note Text: Transfer Note: PATIENT NAME: Aislinn Wheeler Patient Location: [address]/-[id number] Room: NH9S-63 Patient transferred into room/unit pk308 in stable condition. Actions taken: No futher actions taken at this time. Will continue to monitor and check with patient. [facility] NURSING PROG HNO ID: [id number] Author: Linda Nicholson, REY Service: Nursing Author Type: Registered Nurse Type: Nursing Progress Note Filed: 06/22/2023 12:20 PM Note Text: pre-incision juan area noted to have redness and inflamed, prior to prepping and putting chaves in. [facility] NURSING PROG HNO ID: [id number] Author: Elva Joy, REY Service: Nursing Author Type: Registered Nurse [...] (RECOMMENDATION): None Electronically Signed By: Elva Joy [facility] OPERATIVE NOon 06-22-2023 OPERATIVE NO HNO ID: [id number] Author: Taurus Balalrd MD Service: Urology Author Type: Physician Type: Operative Report Filed: 06/22/2023 1:48 PM Note Text: OPERATIVE/PROCEDURE REPORT LOG ID: [id number] Surgery/Procedure Date: 06/22/2023 Incision/Procedure Start Time: 11:49 AM Incision Close/Procedure End Time: 1:55 PM Surgeon(s)/Proceduralis t(s) and Packing Machine Operator(s): Surgeon(s) and Role: * Taurus Ballard MD - Primary * Jeet De La Fuente MD - Resident - Assisting Physician Packing Machine Operator: Rocael Rios PA-C; Alicia Harmon PA-C [...] superior to the umbilicus a 12 mm carpenter assistant installer port was placed. At this point the [...] a specimen bag out of the supraumbilical carpenter assistant installer port. This port was closed with a [...] None Drains: 10 flat JUAN drain, 16 Macedonian Chaves catheter Complications: None Accidental Punctures/Lacerations: None I/primary surgeon/proceduralist performed the procedure with assistance. SIGNATURE: Taurus Ballard MD PATIENT NAME: Aislinn Wheeler DATE: June 22, 2023 TIME: 1:42 PM PAGER/CONTACT #: [facility] SURGICAL PATHOLOGYon 023 CASE REPORT [facility] Comment on above: Order Comment: [place] Type: BLOOD SPECIMEN Ordering Facility: [facility] Address: [address] [place] [address] Result Comment: Surg ica Pathology Report Case: [id number] Authorizing Provider: Taurus Ballard MD Collected: 06/22/2023 01:38 PM Ordering Location: [facility] Received: 06/22/2023 03:16 PM Operating Room Pathologist: Barron Cheema MD Specimen: KIDNEY PARTIAL NEPHRECTOMY LEFT, left renal neoplasm Performed By: #### 2 4321-2 #### [facility] CLIA [id number] [place] [address] [place] CLINICAL HISTORY Normal [facility] Comment on above: Order Comment: [place] Type: BLOOD SPECIMEN Ordering Facility: [facility] Address: [address] [place] [address] Result Comment: 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 - 7.2 cm gross greatest dimension of tissue specimen (defer to clinical/imaging for overall lesion size). Performed By: #### 2 4321-2 #### [facility] CLIA [id number] [address] FINAL PERFORMING LAB [facility] Comment on above: Order Comment: Speci men Type: BLOOD SPECIMEN Ordering Facility: [facility] Address: [address] [place] [address] Result Comment: Diag nostic interpretation performed at [facility], [address] [address] CLIA# [id number] Chopper Operator: Oswald Munguia M.D. Performed By: #### 2 4321-2 #### [facility] CLIA [id number] [address] [place] [address] GROSS DESCRIPTION Normal [facility] Comment on above: Order Comment: Speci men Type: BLOOD SPECIMEN Ordering Facility: [facility] Address: [facility] [place] [address] Result Comment: Emre MCGRATH PARTIAL NEPHRECTOMY LEFT Received in formalin designated left renal neoplasm is a segment of chilel-purple membranous tissue which weighs 39 g and measures 7.2 x 5.5 x 3.5 cm. There is cautery present at the margin which is inked orange. The surfaces are smooth with no masses or papillations grossly appreciated. Sectioning does not reveal any masses. Immunochemist sections are submitted in 5 cassettes. BF June 23, 2023 9:00 AM Gross examination performed at [facility], [address] [place] [address] CLIA # [id number] Performed By: #### 2 4321-2 #### [facility] CLIA [id number] [address] [place] [address] CNPOlivia 06-15-2023 CNPN Telephone ([facility]) AISLINN WHEELER ([id number]) 1960 F Date Time Provider Department 06/15/23 VONNIE WILDER [facility] During your visit today, we recorded [...] Encounter Status:Closed by VONNIE WILDER on 06/15/23 [facility] [place] 06-12-2023 CNPN Telephone ([facility]) AISLINN WHEELER ([id number]) 1960 F Date Time Provider Department 06/12/23 L[facility]ELASCO [facility] During your visit today, we recorded the following information about you: Liliana Velasco RN 06/12/2023 8:56 AM Signed Received call from RN at Dr. Sara Augustine ([phone]) office (endocrinology) regarding clearance for upcoming surgery [...] Signed Office Notes on 06/08/23 with endocrinology, Tondra Mapas, CERTIFIED MEDICAL BILLER received and scanned into [employer] to view. Allergies As of Date: 06/12/2023 [...] Encounter Status:Closed by LILIANA VELASCO on 06/12/23 [facility] Urineon 06-10-2023 Bacteria identified Cx Nom (U) [...] Locations R1: This test was performed at: [facility], [address] [place] [address], [address] , [place], [facility] Comment on above: Performed By: #### 2 [id number] #### [facility] [address] [place] [address] [facility]2023 KIARAN Telephone ([facility]) AISLINN WHEELER ([id number]) 1960 F Date Time Provider Department 06/09/23 TAURUS BALLARD During your visit today, we recorded the following information about you: Derik Fernandez 06/09/2023 3:31 PM Signed Lvm on patient's phone inquiring if she kept her 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 assurance analyst appointment on 06/08 for clearance for her surgery on 06/22 Left message with office of Sara Augustine ([phone]) where patient's appointment was scheduled asking for [...] Encounter Status:Closed by DERIK FERNANDEZ on 06/09/23 [facility] Glucose - FINGER STICKon Glucose [Mass/Vol] 436 mg/dL [facility] [place] 06-07-2023 KIARAN Telephone (MERY) AISLINN WHEELER ([id number]) 1960 F Date Time Provider Department 06/07/23 [...] labs to PCP Thank you Jenny Aguilar APRN.CNP PAC Jenny Aguilar APRN.CNP 06/07/2023 8:26 AM Signed [...] June 12, 2023 12:49 PM Jenny Aguilar APRN.CERTIFIED MEDICAL BILLER 06/13/2023 11:[address] Chao, Patient saw endocrinology at [facility] 06/08 and had medications adjusted. I called patient to see how BG levels have been but unable to reach. She has a follow up with endo 06/20 Can she proceed with surgery since she saw endo? Thank you Jenny Aguilar APRN.CERTIFIED MEDICAL BILLER PACC Jenny Aguilar APRN.CERTIFIED MEDICAL BILLER 06/15/2023 1:26 PM Signed Repeat labs completed [...] fatigue. She is on her way to [facility] ED. Because patient is not [...] with hyperglycemia (HCC) [E11.65] Order(s):CONSULT TO ENDOCRINOLOGY [3390] Order #: [id number]: 1 FUTURE Prescriptions as of 06/19/2023 - [...] hours as (more content not included)... Normal [facility] CBC W Auto Differential pane l (Bld)on 06-06-2023 Basophils (Bld) [#/Vol] 0.04 10*3/uL Normal <0.11 [facility] Comment on above: Order Comment: Speci men Type: BLOOD SPECIMEN Ordering Facility: [facility] Address: [address] [place] [address] Performed By: #### 5 7021-8 #### [facility] CLIA [id number] [facility] [place] [address] [place] Basophils/100 WBC (Bld) 0.8 % Normal [facility] Comment on above: Order Comment: Speci men Type: BLOOD SPECIMEN Ordering Facility: [facility] Address: [address] [place] [address] Performed By: #### 5 7021-8 #### [facility] CLIA [id number] [address] [place] [address] [place] Differential cell count method Nom (Bld) Auto Normal [facility] Comment on above: Order Comment: Speci men Type: BLOOD SPECIMEN Ordering Facility: [facility] Address: [address] [place] [address] Performed By: #### 5 7021-8 #### [facility] CLIA [id number] [address] [place] [address] [place] Eosinophils (Bld) [#/Vol] 0.15 10*3/uL Normal <0.46 [facility] Comment on above: Order Comment: Speci men Type: BLOOD SPECIMEN Ordering Facility: [facility] Address: [address] [place] [address] Performed By: #### 5 7021-8 #### [facility] CLIA [id number] [address] [place] [address] [place] Eosinophils/100 WBC (Bld) 3.1 % Normal [facility] Comment on above: Order Comment: Speci men Type: BLOOD SPECIMEN Ordering Facility: [facility] Address: [address] [place] [address] Performed By: #### 5 7021-8 #### [facility] CLIA [id number] [address] [place] [address] [place] Erythrocyte distribution width (RBC) [Ratio] 14.7 % Normal 11.5-15.0 [facility] Comment on above: Order Comment: Speci men Type: BLOOD SPECIMEN Ordering Facility: [facility] Address: [address] [place] [address] Performed By: #### 5 7021-8 #### [facility] CLIA [id number] [address] [place] [address] [place] Hematocrit (Bld) [Volume fraction] 37.2 % Normal 36.0-46.0 [facility] Comment on above: Order Comment: Speci men Type: BLOOD SPECIMEN Ordering Facility: [facility] Address: [address] [place] [address] Performed By: #### 5 7021-8 #### [facility] CLIA [id number] [address] [place] [address] [place] Hemoglobin (Bld) [Mass/Vol] 11.9 g/dL Normal 11.5-15.5 [facility] Comment on above: Order Comment: Speci men Type: BLOOD SPECIMEN Ordering Facility: [facility] Address: [address] [place] [address] Performed By: #### 5 7021-8 #### [facility] CLIA [id number] [address] [place] [address] [place] Immature granulocytes (Bld) [#/Vol] 10*3/uL Normal <0.10 [facility] Comment on above: Order Comment: Speci men Type: BLOOD SPECIMEN Ordering Facility: [facility] Address: [address] [place] [address] Performed By: #### 5 7021-8 #### [facility] CLIA [id number] [address] [place] [address] [place] Immature granulocytes/100 WBC (Bld) 0.4 % Normal [facility] Comment on above: Order Comment: Speci men Type: BLOOD SPECIMEN Ordering Facility: [facility] Address: [address] [place] [address] Performed By: #### 5 7021-8 #### [facility] CLIA [id number] [address] [place] [address] [place] Lymphocytes (Bld) [#/Vol] 2.18 10*3/uL Normal 1.00-4.00 [facility] Comment on above: Order Comment: Speci men Type: BLOOD SPECIMEN Ordering Facility: [facility] Address: [address] [place] [address] Performed By: #### 5 7021-8 #### [facility] CLIA [id number] [address] [place] [address] [place] Lymphocytes/100 WBC (Bld) 44.7 % Normal [facility] Comment on above: Order Comment: Speci men Type: BLOOD SPECIMEN Ordering Facility: [facility] Address: [address] [place] [address] Performed By: #### 5 7021-8 #### [facility] CLIA [id number] [address] [place] [address] [place] MCH (RBC) [Entitic mass] 25.4 pg Low 26.0-34.0 [facility] Comment on above: Order Comment: Speci men Type: BLOOD SPECIMEN Ordering Facility: [facility] Address: [address] [place] [address] Performed By: #### 5 7021-8 #### [facility] CLIA [id number] [address] [place] [address] [place] MCHC (RBC) [Mass/Vol] 32.0 g/dL Normal 30.5-36.0 [facility] Comment on above: Order Comment: Speci men Type: BLOOD SPECIMEN Ordering Facility: [facility] Address: [address] [place] [address] Performed By: #### 5 7021-8 #### [facility] CLIA [id number] [address] [place] [address] [place] MCV (RBC) [Entitic vol] 79.5 fL Low 80.0-100.0 [facility] Comment on above: Order Comment: Speci men Type: BLOOD SPECIMEN Ordering Facility: [facility] Address: [address] [place] [address] Performed By: #### 5 7021-8 #### [facility] CLIA [id number] [address] [place] [address] [place] Monocytes (Bld) [#/Vol] 0.42 10*3/uL Normal <0.87 [facility] Comment on above: Order Comment: Speci men Type: BLOOD SPECIMEN Ordering Facility: [facility] Address: [address] [place] [address] Performed By: #### 5 7021-8 #### [facility] CLIA [id number] [address] [place] [address] [place] Monocytes/100 WBC (Bld) 8.6 % Normal [facility] Comment on above: Order Comment: Speci men Type: BLOOD SPECIMEN Ordering Facility: [facility] Address: [address] [place] [address] Performed By: #### 5 7021-8 #### [facility] CLIA [id number] [address] [place] [address] [place] Neutrophils (Bld) [#/Vol] 2.07 10*3/uL Normal 1.45-7.50 [facility] Comment on above: Order Comment: Speci men Type: BLOOD SPECIMEN Ordering Facility: [facility] Address: [address] [place] [address] Performed By: #### 5 7021-8 #### [facility] CLIA [id number] [address] [place] [address] [place] Neutrophils/100 WBC (Bld) 42.4 % Normal [facility] Comment on above: Order Comment: Speci men Type: BLOOD SPECIMEN Ordering Facility: [facility] Address: [address] [place] [address] Performed By: #### 5 7021-8 #### [facility] CLIA [id number] [address] [place] [address] [place] Nucleated RBC (Bld) [#/Vol] 10*3/uL Normal <0.01 [facility] Comment on above: Order Comment: Speci men Type: BLOOD SPECIMEN Ordering Facility: [facility] Address: [address] [place] [address] Performed By: #### 5 7021-8 #### [facility] CLIA [id number] [address] [place] [address] [place] Nucleated RBC/100 WBC (Bld) [Ratio] 0.0 /100 WBC Normal [facility] Comment on above: Order Comment: Speci men Type: BLOOD SPECIMEN Ordering Facility: [facility] Address: [address] [place] [address] Performed By: #### 5 7021-8 #### [facility] CLIA [id number] [address] [place] [address] [place] Platelet mean volume (Bld) [Entitic vol] 11.5 fL Normal 9.0-12.7 [facility] Comment on above: Order Comment: Speci men Type: BLOOD SPECIMEN Ordering Facility: [facility] Address: [address] [place] [address] Performed By: #### 5 7021-8 #### [facility] CLIA [id number] [address] [place] [address] [place] Platelets (Bld) [#/Vol] 230 10*3/uL Normal 150-400 [facility] Comment on above: Order Comment: Speci men Type: BLOOD SPECIMEN Ordering Facility: [facility] Address: [address] [place] [address] Performed By: #### 5 7021-8 #### [facility] CLIA [id number] [address] [place] [address] [place] RBC (Bld) [#/Vol] 4.68 10*6/uL Normal 3.90-5.20 [facility] Comment on above: Order Comment: Speci men Type: BLOOD SPECIMEN Ordering Facility: [facility] Address: [address] [place] [address] Performed By: #### 5 7021-8 #### [facility] CLIA [id number] [address] [place] [address] [place] WBC (Bld) [#/Vol] 4.88 10*3/uL Normal 3.70-11.00 [facility] Comment on above: Order Comment: Speci men Type: BLOOD SPECIMEN Ordering Facility: [facility] Address: [address] [place] [address] Performed By: #### 5 7021-8 #### [facility] CLIA [id number] [address] [address] [place] Comprehensive metabolic 2000 panelon 06-06-2023 Albumin [Mass/Vol] 3.8 g/dL Low 3.9-4.9 [facility] Comment on above: Order Comment: Speci men Type: BLOOD SPECIMEN Ordering Facility: [facility] Address: [address] [place] [address] Performed By: #### 2 4323-8 #### [facility] CLIA [id number] [address] [place] [id number] [place] ALP [Catalytic activity/Vol] 115 U/L Normal 34-123 [facility] Comment on above: Order Comment: Speci men Type: BLOOD SPECIMEN Ordering Facility: [facility] Address: [address] [place] [address] Performed By: #### 2 4323-8 #### [facility] CLIA [id number] [address] [place] [address] [place] ALT [Catalytic activity/Vol] 11 U/L Normal 7-38 [facility] Comment on above: Order Comment: Speci men Type: BLOOD SPECIMEN Ordering Facility: [facility] Address: [address] [place] [address] Performed By: #### 2 4323-8 #### [facility] CLIA [id number] [address] [place] [address] [place] Anion gap [Moles/Vol] 11 mmol/L Normal 9-18 [facility] Comment on above: Order Comment: Speci men Type: BLOOD SPECIMEN Ordering Facility: [facility] Address: [address] [place] [address] Performed By: #### 2 4323-8 #### [facility] CLIA [id number] [address] [place] [id number] [place] AST [Catalytic activity/Vol] 12 U/L Low 13-35 [facility] Comment on above: Order Comment: Speci men Type: BLOOD SPECIMEN Ordering Facility: [facility] Address: [address] [place] [address] Performed By: #### 2 4323-8 #### [facility] CLIA [id number] [address] [place] [address] [place] Bilirubin [Mass/Vol] 0.3 mg/dL Normal 0.2-1.3 [facility] Comment on above: Order Comment: Speci men Type: BLOOD SPECIMEN Ordering Facility: [facility] Address: [address] [place] [address] Performed By: #### 2 4323-8 #### [facility] CLIA [id number] [address] [place] [address] [place] Calcium [Mass/Vol] 8.9 mg/dL Normal 8.5-10.2 [facility] [facility] Comment on above: Order Comment: Speci men Type: BLOOD SPECIMEN Ordering Facility: [facility] Address: [address] [place] [address] Performed By: #### 2 4323-8 #### [facility] CLIA [id number] [address] [place] [address] [place] Chloride [Moles/Vol] 95 mmol/L Low 97-105 [facility] Comment on above: Order Comment: Speci men Type: BLOOD SPECIMEN Ordering Facility: [facility] Address: [address] [place] [address] Performed By: #### 2 4323-8 #### [facility] CLIA [id number] [address] [place] [address] [place] CO2 [Moles/Vol] 24 mmol/L Normal 22-30 [facility] Comment on above: Order Comment: Speci men Type: BLOOD SPECIMEN Ordering Facility: [facility] Address: [address] [place] [address] Performed By: #### 2 4323-8 #### [facility] CLIA [id number] [address] [place] [address] [place] Creatinine [Mass/Vol] 1.81 mg/dL High 0.58-0.96 [facility] Comment on above: Order Comment: [place] Type: BLOOD SPECIMEN Ordering Facility: [facility] Address: [address] [place] [address] Performed By: #### 2 4323-8 #### [facility] CLIA [id number] [facility] [place] [address] [place] Creatinine and Glomerular filtration rate.predicted panel (S/P/Bld) 31 mL/min/1.73m??? Low >=60 [facility] Comment on above: Order Comment: [place] Type: BLOOD SPECIMEN Ordering Facility: [facility] Address: [address] [place] [address] Result Comment: Donna mated Glomerular Filtration Rate [...] GFR. Performed By: #### 2 4323-8 #### [facility] CLIA [id number] [facility] [place] [address] [place] Glucose [Mass/Vol] 510 mg/dL High 74-99 [facility] Comment on above: Order Comment: [place] Type: BLOOD SPECIMEN Ordering Facility: [facility] Address: [address] [place] [address] Result Comment: The [place] Diabetes Association (ADA) provides guidance for cutoff [...] Standards of Medical Care in Diabetes 2016, [place] Diabetes Association. Diabetes Care. 2016.39(Suppl 1). Performed By: #### 2 4323-8 #### [facility] CLIA [id number] [address] [place] [address] [place] Potassium [Moles/Vol] 5.9 mmol/L High 3.7-5.1 [facility] Comment on above: Order Comment: Speci men Type: BLOOD SPECIMEN Ordering Facility: [facility] Address: [address] [place] [address] Performed By: #### 2 4323-8 #### [facility] CLIA [id number] [address] [place] [address] [place] Protein [Mass/Vol] 8.2 g/dL High 6.3-8.0 [facility] Comment on above: Order Comment: Speci men Type: BLOOD SPECIMEN Ordering Facility: [facility] Address: [address] [place] [address] Performed By: #### 2 4323-8 #### [facility] CLIA [id number] [address] [place] [address] [place] Sodium [Moles/Vol] 130 mmol/L Low 136-144 [facility] Comment on above: Order Comment: Speci men Type: BLOOD SPECIMEN Ordering Facility: [facility] Address: [address] [place] [address] Performed By: #### 2 4323-8 #### [facility] CLIA [id number] [address] [place] [address] [place] Urea nitrogen [Mass/Vol] 36 mg/dL High 7-21 [facility] Comment on above: Order Comment: Speci men Type: BLOOD SPECIMEN Ordering Facility: [facility] Address: [address] [place] [address] Performed By: #### 2 4323-8 #### [facility] CLIA [id number] [address] [place] [address] [place] ECG COMPLETEon 06-06-2023 ECG COMPLETE Ventricular Rate : 7 6 BPM Atrial Rate : 76 BPM P-R Interval : 162 ms QRS Duration : 74 ms Q-T Interval : 402 ms QTC Calculation(Bazett) : 452 ms Calculated P Gibbon : 48 degrees Calculated R Gibbon : 43 degrees Calculated T Gibbon : 53 degrees NORMAL SINUS RHYTHM POSSIBLE LEFT ATRIAL ENLARGEMENT BORDERLINE ECG Confirmed by AMANDA DAVID MD ([id number]) on 06/10/2023 4:44:16 PM NAME : AISLINN WHEELER PID : [id number] : 1960 Gender : Female Race : ORD : [id number] Procedure Date : Jun 06 2023 12:04:48 [...] TAURUS BALLARD Acquired by : Fabio hull [facility] HISTORY PHYSICALon HISTORY PHYSICAL HNO ID: [id number] Author: Jenny Aguilar APRN.CERTIFIED MEDICAL BILLER Service: ? Author Type: Nurse Practitioner Type: [...] 2 drinks per day. : See HPI HEEL SLUGGER: Negative for abnormal vaginal bleeding, abnormal vaginal [...] pupils equal, (more content not included)... Normal [facility] HbA1c (Bld)on 06-06-2023 Average glucose Estimated from glycated hemoglobin (Bld) [Mass/Vol] 335 mg/dL Normal [facility] Comment on above: Order Comment: Speci men Type: BLOOD SPECIMEN Ordering Facility: [facility] Address: [address] [place] [address] Result Comment: eAG: (Estimated average glucose) is a calculated value from HgbA1c and is provider relations representative of the average blood glucose level in the last 2-3 month period. Performed By: #### 5 5454-3 #### [facility] CLIA [id number] [address] [place] [address] [place] HbA1c (Bld) [Mass fraction] 13.3 % High 4.3-5.6 [facility] Comment on above: Order Comment: [place] Type: BLOOD SPECIMEN Ordering Facility: [facility] Address: [address] [place] [address] Result Comment: [place] Diabetes Association guidelines indicate that patients with HgbA1c in the range 5.7-6.4% are at increased risk for development of diabetes, and intervention by lifestyle modification may be beneficial. HgbA1c greater or equal to 6.5% is considered diagnostic of diabetes. Performed By: #### 5 5454-3 #### [facility] CLIA [id number] [address] [place] [address] [place] PT panel Coag (PPP)on 2022 INR Coag (PPP) [Relative time] 1.0 {INR} Normal 0.9-1.3 [facility] Comment on above: Order Comment: [place] Type: BLOOD SPECIMEN Ordering Facility: [facility] Address: [address] [place] [address] Result Comment: Laxmi min K Antagonist (VKA) Therapeutic Range: INR 2 to 3 (Target INR of 2.5) Note: For patients treated with VKA drugs, such as warfarin, the [place] College [employer]icians 2012 Guideline recommends [...] CABALLERO, et al. Chest 2012, 141:7S-47S Eligio LEÓN et al. [facility] 2017, 70: 252-289 Performed By: #### 1 4979-9, 07667-5 #### [facility] CLIA [id number] [address] [place] [address] [place] PT Coag (PPP) [Time] 10.1 s Normal 9.7-13.0 [facility] Comment on above: Order Comment: Speci men Type: BLOOD SPECIMEN Ordering Facility: [facility] Address: [address] [place] [address] Performed By: #### 1 4979-9, 81443-1 #### [facility] CLIA [id number] [address] [place] [address] [place] TYPE AND SCREEN,30 DAYon ABO B Normal [facility] Comment on above: Order Comment: Speci men Type: BLOOD SPECIMEN Ordering Facility: [facility] Address: [address] [place] [address] Performed By: #### T SCR30 #### [facility] CLIA [id number] [address] [place] [address] [place] HISTORICAL AB SCR STATUS Negative Normal [facility] Comment on above: Order Comment: Speci men Type: BLOOD SPECIMEN Ordering Facility: [facility] Address: [address] [place] [address] Performed By: #### T SCR30 #### [facility] CLIA [id number] [address] [place] [address] [place] Rh Nom (Bld) Positive Normal [facility] Comment on above: Order Comment: Speci men Type: BLOOD SPECIMEN Ordering Facility: [facility] Address: [address] [place] [address] Performed By: #### T SCR30 #### [facility] CLIA [id number] [address] [place] [address] [place] aPTT PPPon 06-06-2023 aPTT Coag (PPP) [Time] 28.7 s Normal 23.0-32.4 [facility] Comment on above: Order Comment: Speci men Type: BLOOD SPECIMEN Ordering Facility: [facility] Address: [address] [place] [address] Result Comment: Yeny en Plasma [employer] Performed By: #### 1 4979-9, 69010-5 #### [facility] CLIA [id number] [address] [facility] [address] [place] Consent for Procedure/Surger yon 05-22-2023 Consent for Procedure/Surgery [id number]#1.0 0CD:127 Normal [facility] Consent for Treatmenton Consent for Treatment [id number]#1.00C D:127 Normal [facility] Inpatient Patient Summaryon 05-22-2023 Inpatient Patient Summary [address] [address] Clinical Summary Person Information Name: AISLINN WHEELER Age: 63 Years : 1960 Sex: Female PCP: LATOSHA OLMSTEAD CNP Marital Status: Race: White Ethnicity: Non- or Language: Citizen Of [place] Visit Id: Visit Reason: MIXED URINARY INCONTINENCE Speciality: Acuity: Enc Type: Outpatient Med Service: Surgery Arrival: 05/22/2023 09:41:57 Discharge: Dispo Type: Address: [address] [place] [id number] Provider Notes: Diagnosis: Feeling of incomplete bladder [...] up: With: Address: When: Lisa Porras [address] [id number] [phone] Business (1) [facility] Patrick Raymond [address] [place], [place] [phone] Business (1) Comments: Office to schedule follow up in 1 month with PVR Patient Education Information: EU - Cystoscopy with Botox Injection Discharge Instructions (CUSTOM) Normal [facility] IntraOperative Documentson 1 IntraOperative Documents [id number]#1.0 0CD:127 Normal [facility] Main OR Intraoperative Recor don 05-22-2023 Main OR Intraoperative Record IntraOp Document Type FTURO Summary Primary Physician: Lisa Porras MD Finalized Date/Time: 05/22/23 11:29:32 Pt. Name: AISLINN WHEELER D.O.B./Sex: 1960 Female Med Rec #: [id number] Physician: Lisa Porras MD Financial #: [id number] Pt. Type: O Room/Bed: / Admit/Disch: 05/22/23 09:41:57 - Institution: Case Times FTURO Entry 1 Patient Times In Room 05/22/23 11:15:00 Out Room 05/22/23 11:30:00 Procedure Times Start 05/22/23 11:22:00 Stop 05/22/23 11:26:00 Anesthesia Times Last Modified By: Katya LE, Marilee Feldman 05/22/23 11:26:29 General Comments: BOTOX 100 UNITS LOT#: [id number] , EXP DATE: 09/2025 -Jessica BLANCO RN Case Attendance FTURO Entry 1 Entry 2 Entry 3 Case Attendee Vern TAVERAS, Lisa Blanco RN, Marilee Solano CST, Diana Feldman Role Performed Surgeon - Primary Barber Stylist - Primary Scrub - Primary Time In [...] 100 UNITS Primary Procedure Yes Primary Surgeon Vern TAVERAS, Lisa Montiel Start 05/22/23 11:22:00 Stop 05/22/23 11:26:00 Anesthesia [...] By: Marilee Blanco RN 05/22/23 11:29 Normal [facility] Main OR Preoperative Recordo n 05-22-2023 Main OR Preoperative Record Holding Area Document Type FTURO Summary Primary Physician: Lisa Porras MD Finalized Date/Time: 05/22/23 10:32:24 Pt. Name: AISLINN WHEELER /Sex: 1960 Female Med Rec #: [id number] Physician: Lisa Porras MD Financial #: [id number] Pt. Type: O Room/Bed: / Admit/Disch: 05/22/23 [...] By: Diana Mcpherson RN 05/22/23 10:32 Normal [facility] Operative Reporton Operative Report Patient: BARBARA WHEELER Age: 63 years Sex: Female : 1960 Associated Diagnoses: None Author: Lisa Porras MD Procedure Operative Information Details: Date/ Time: 05/22/2023 11:29:00. Pre-Op Dx: Feeling of incomplete bladder emptying (PET67-TJ R39.14, Discharge, Medical), Mixed incontinence (MKP41-FB N39.46, Discharge, Medical), Urinary leakage (JST93-FH R32, Discharge, Medical). Post-Op Dx: Same. Anesthesia [...] to [facility] in the remote past). Normal [facility] Comment on above: Result Comment: Elec tronically Signed By: Lisa Porras MD\.br\Date and Time Signed: 05/22/23 11:30 EDT Outpatient Surgery Discharge Instructionon 10-02-2023 Outpatient Surgery Discharge Instruction [address] [address] Patient Discharge Instructions PERSON INFORMATION Name: AISLINN [...] Follow up: With: Address: When: Lisa Porras [address] [place] [phone] Business (1) [address] [place] [address], [address] [address] [phone] Business (1) Comments: Office to schedule follow [...] Date You may receive a survey from [employer] asking you to rate your care experience. Your feedback is important and will help us understand what we do well and how we can improve the quality of care we provide to you, your loved ones and our community. It?s an honor to serve you. Thank you for choosing [facility] Normal [facility] Consultation Noteon 05-19-20 Consultation Note [id number]#1.00C D:127 Normal [facility] A1C HEMOGLOBINon 05-18-2023 HbA1c (Bld) [Mass fraction] 14.0 % [employer] Other [place] [facility] AISLINN WHEELER ([id number]) 1960 F Date Time Provider Department 05/18/23 TAURUS BALLARD During your visit today, we recorded the following information about you: Latosha Faulkner 05/18/2023 1:01 PM Signed Consult notes sent back to Dr. Lisa Porras , phone [phone]. From Dr. Ballard office. Allergies As of [...] Encounter Status:Closed by DERIK FERNANDEZ on 06/09/23 [facility] Glucose - FINGER STICKon Glucose [Mass/Vol] 429 mg/dL [employer] Other HbA1c (Bld) [Mass fraction]o n 05-18-2023 A1C HEMOGLOBIN [employer] Other CNOVon 05-17-2023 CNOV Office Visit (URFHR) AISLINN WHEELER ([id number]) 1960 F Date Time Provider Department 05/17/23 1:10 PM TAURUS BALLARD URR During your visit today, we recorded the following information about you: Temperature Pulse Blood pressure Weight 97.5 degrees 70/minute 172/81 60.1 kg Taurus Ballard MD 05/17/2023 1:35 PM Signed [facility] UROLOGICAL RANKIN FOLLOW-UP PATIENT HISTORY AND PHYSICAL EXAM PATIENT INFO: Aislinn Wheeler 63 year old REFERRING M.D.: No referring provider defined for this encounter. CHIEF COMPLAINT: Cystic Bosniak 2F lesion, ANATOLIY HISTORY: Asilinn Wheeler is a 63 yr old female [...] 1.92 01/19/[address] scan (outside records) [facility] 09/28/21 IMPRESSION: Since the prior CT [...] other structures) (more content not included)... Normal [facility] C Urineon 05-13-2023 Bacteria identified Cx Nom (U) Microbiology PROCEDURE: Urine Culture [R1] SOURCE: U CleanCatch BODY SITE: COLLECTED DATE/TIME: 05/11/2023 11:49 EDT RECEIVED DATE/TIME: 05/11/2023 18:32 EDT START DATE/TIME: 05/11/2023 18:32 EDT FREE TEXT SOURCE: HEIDY ARNOLD PA-C, [...] Locations R1: This test was performed at: [facility], [address] [place] [address], [address]- , , Normal [facility] Comment on above: Performed By: #### 2 [id number] #### [facility] [address] [place] [address] Physician Referralon 023 Physician Referral [id number] :127 PATIENT IS SCHEDULED 05/17/2023 [facility] Consultation Noteon 05-04-20 23 Consultation Note [id number]#1.00CD :127 [facility] Insurance Correspondenceon 0 05-04-2023 Insurance Correspondence [id number]#1.00 CD:127 [facility] Urology Office/Clinic Noteon 05-04-2023 Urology Office/Clinic Note [...] mass on Kidney was not cancerous. However senior graphic designer told her she has kidney cancer. Denies [...] PSH lap cholecystectomy, open hysterectomy -Continues with senior graphic designer for CKD3 1. Renal cyst (N28.1: Cyst [...] of robotic left cyst decortication -Pt states senior graphic designer told her she has cancer. 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 Ordered: 65271 Measure Post Void residual urine and/or bladder capacity by US- non-imaging Urnls Dip Stick Auto w/o Microscopy POC 53097 2. Mixed incontinence (N39.46: Mixed incontinence) Pt [...] of Botox. (more content not included)... Normal [facility] Comment on above: Result Comment: Elec tronically Signed By: Vern TAVERAS, Lisa Montiel\.br\Date and Time Signed: 05/04/23 14:11 EDT Ambulatory Visit Summaryon 0 05-03-2023 Ambulatory Visit Summary AISLINN WHEELER :1960 Visit Date:05/03/2023 Ambulatory Visit Instructions Your Diagnosis Renal mass Renal cyst Mixed incontinence Feeling of incomplete bladder emptying Glucosuria Tests Performed Urnls Dip Stick Auto w/o Microscopy POC 19249 Your Care Team Attending Physician - Lisa [...] one day prior to procedure Pickup at [facility] New estradiol topical (Estrace 0.1 mg/ g Cream) See instructions Refills: 3 apply pea size amount to urethra/ inner vagina 3x/ week x 1 month, then 2x/ week for maintainence Pickup at [facility] Unchanged trospium (trospium 20 mg oral [...] physician if questions or concerns Pharmacy Information [facility]: [address] [place], [place] [phone] Test Results Urnls Dip Stick Auto w/o Microscopy POC 95909 (05/03/2023) Bilirubin Urine Dipstick - Negative Blood Urine Dipstick - Trace-intact Glucose Urine Dipstick - 3+ 1000 mg/dl Ketones Urine Dipstick - Negative Leukocytes Urine Dipstick - Negative Nitrite Urine Dipstick - Negative Protein Urine Dipstick - Trace Specific [place] Urine Dipstick - 1.015 Urine Appearance Urine [...] are saf (more content not included)... Normal [facility] Patient Educationon 05-03-20 Patient Education Obstetrics [...] provider. Document Revised: 12/16/2021 Document Reviewed: 12/16/2021 [employer] Patient Education ? 2022 [employer] [facility] Screenson 05-03-2023 Screens [id number]#1.00 CD:127 [facility] C Urineon 04-20-2023 Bacteria identified Cx Nom [...] Locations R1: This test was performed at: [facility], [address] [place] [address], [facility]- , , [facility] Comment on above: Performed By: #### 2 [id number] ####[facility] [address] [place] [address] Ambulatory Visit Summaryon 0 04-18-2023 Ambulatory Visit [...] With: Lisa Porras MD Where: [facility] Screenson 02-23-2023 Screens [id number] CD:127 [facility] Ambulatory Visit Summaryon 0 02-22-2023 Ambulatory Visit Summary AISLINN WHEELER :1960 Visit Date:02/22/2023 Ambulatory Visit Instructions Your Diagnosis Renal mass Renal cyst Mixed incontinence Feeling of incomplete bladder emptying Glucosuria Tests Performed Urnls Dip Stick Auto w/o Microscopy POC 59473 Your Care Team Attending Physician - Lisa [...] With: Lisa Porras MD Where: [facility] Patient Educationon 07-05-20 23 Patient Education Obstetrics and Gynecology Kegel [...] provider. Document Revised: 12/16/2021 Document Reviewed: 12/16/2021 [employer] Patient Education ? 2022 [employer] Fabio Zaragoza [facility] Urology Office/Clinic Noteon 02-22-2023 Urology Office/Clinic Note [...] PSH lap cholecystectomy, open hysterectomy -Continues with senior graphic designer after referred last visit 1. Renal mass [...] stopped and the (more content not included)... [facility] Comment on above: Result Comment: Elec tronically Signed By: Vern TAVERAS, Lisa Montiel\.br\Date and Time Signed: 02/22/23 10:14 EDT\.br\Electronically Co-Signed By: Marilee Gray\.br\Date and Time Co-Signed: 02/22/23 09:36 EDT Lab Reportson 02-20-2023 Lab Reports [id number] D:127 [facility] RAD - CT Reporton 02-20-2023 RAD - CT Report [id number]#1.00CD :127 [facility] Physician Orderon 02-01-2023 Physician Order [id number]#1.00CD :127 [facility] Consultation Noteon 01-08-20 Consultation Note [id number]#1.00C D:127 [facility] XR FOOT LT MIN 3 VIEWSon XR FOOT LT MIN 3 VIEWS Normal [facility] MG MAMM SCREEN 3D ALINE CADon 12-28-2022 MG MAMM SCREEN 3D ALINE CAD Normal [facility] XR DEXA BONE DENSITYon 12-28 XR DEXA BONE DENSITY Normal [facility] NM STRESS/REST MULTIon 12-15 NM STRESS/REST MULTI Normal [facility] XR FOOT LT MIN 3 VIEWSon XR FOOT LT MIN 3 VIEWS Normal [facility] Physician Referralon 023 Physician Referral [id number] [facility] [id number]#1.00C D:127 Normal [facility] CT FOOT LT WO CONon 10-28-19 CT FOOT LT WO CON Normal [facility] XR FOOT LT MIN 3 VIEWSon XR FOOT LT MIN 3 VIEWS Normal [facility] XR FOOT LT MIN 3 VIEWSon XR FOOT LT MIN 3 VIEWS Normal [facility] XR FOOT LT MIN 3 VIEWSon XR FOOT LT MIN 3 VIEWS Normal [facility] XR FOOT LT MIN 3 VIEWSon XR FOOT LT MIN 3 VIEWS Normal [facility] XR FOOT LT MIN 3 VIEWSon XR FOOT LT MIN 3 VIEWS Normal [facility] US KIDNEYSon 09-15-2022 US KIDNEYS Normal [facility] XR FOOT LT MIN 3 VIEWSon XR FOOT LT MIN 3 VIEWS Normal [facility] XR FOOT LT MIN 3 VIEWSon XR FOOT LT MIN 3 VIEWS Normal [facility] XR FOOT LT MIN 3 VIEWSon XR FOOT LT MIN 3 VIEWS Normal [facility] CBC AUTO DIFFon 08-03-2022 BASO # 0.0 103/ul Normal 0.0-0.1 [facility] Comment on above: Performed By: #### C BC ####[facility] [address] [place] [address]DrIrina Rocha Basophils/100 WBC (Bld) 0.5 % Normal 0.2-2.0 [facility] Comment on above: Performed By: #### C BC ####[facility] [address] [place] [address]Dr. Ricardo Rocha EO # 0.1 103/ul Normal 0.0-0.7 [facility] Comment on above: Performed By: #### C BC ####[facility] [address] [place] [address]Dr. Ricardo Rocha Eosinophils/100 WBC (Bld) 1.2 % Normal 0.9-7.0 [facility] Comment on above: Performed By: #### C BC ####[facility] [address] [place], [place] [address]Dr. Ricardo Rocha Erythrocyte distribution width (RBC) [Ratio] 15.0 % Normal 11.0-15.0 [facility] Comment on above: Performed By: #### C BC ####[facility] [address] [place], [place] [address]Dr. Nanomarcial Rocha Hematocrit (Bld) [Volume fraction] 29.5 % Critically low 36.0-48.0 [facility] Comment on above: Performed By: #### C BC ####[facility] Mrrlawbwim[address] [place], [place] [address]Dr. Ricardo Rocha Hemoglobin (Bld) [Mass/Vol] 9.3 g/dL Critically low 12.0-16.0 [facility] Comment on above: Performed By: #### C BC ####[facility] Rxdjkltdyi[address] [place], [place] [address]Dr. Nanomarcial Rocha IG # 0.04 10e3/ul Critically high 0.00-0.03 [facility] Comment on above: Performed By: #### C BC ####[facility] Fxzlarjubl[address] [place], [place] [address]Dr. Nanomarcial Rocha IG % 0.5 % Normal 0.0-0.5 [facility] Comment on above: Performed By: #### C BC ####[facility] Dcxoyavawm04[address] [place], [place] [address]DrIrina Rocha LYMPH # 1.4 103/ul Normal 1.2-3.8 [facility] Comment on above: Performed By: #### C BC ####[facility] Xyurfwzdvp3434 [place] [id number]. Ricardo Rocha Lymphocytes/100 WBC (Bld) 17.2 % Critically low 20.5-60.0 [facility] Comment on above: Performed By: #### C BC ####[facility] Mznylzlwso3123 [place] [id number] Rocha MANUAL DIFF REQ NO Normal [facility] Comment on above: Performed By: #### C BC ####[facility] Inbnkyqfyk1433 [place] [phone]. Ricardo Rocha MCH (RBC) [Entitic mass] 25.2 pg Critically low 26.7-34.0 [facility] Comment on above: Performed By: #### C BC ####[facility] Hgmzdwjuhh3503 [place] [address]Dr. Ricardo Rocha MCHC (RBC) [Mass/Vol] 31.5 g/dL Normal 29.9-35.2 [facility] Comment on above: Performed By: #### C BC ####[facility] Vtyvjsgvds6583 [place] [phone] Rocha MCV (RBC) [Entitic vol] 79.9 fL Critically low 81.0-99.0 [facility] Comment on above: Performed By: #### C BC ####[facility] Cxayiifxcm4843 [place] [phone]. Ricardo Rohca MONO # 0.6 103/ul Normal 0.3-0.8 [facility] Comment on above: Performed By: #### C BC ####[facility] Rgaztvbpsv8055 [place] [phone] Rocha Monocytes/100 WBC (Bld) 7.6 % Normal 1.7-12.0 [facility] Comment on above: Performed By: #### C BC ####[facility] Wrfcongaan[address] [place], [place] [id number] Rocha NEUT # 5.9 103/ul Normal 1.4-6.5 [facility] Comment on above: Performed By: #### C BC ####[facility] Wnrwxeqtwn0151 [place] [phone]. Ricardo Rocha Neutrophils/100 WBC (Bld) 73.0 % Normal 43.0-75.0 [facility] Comment on above: Performed By: #### C BC ####[facility] Bjxndzjfsd9352 [place] [phone]. Ricardo Rocha Platelet mean volume (Bld) [Entitic vol] 11.4 fL Normal 9.5-13.5 [facility] Comment on above: Performed By: #### C BC ####[facility] Hxkfknltvp4955 [place] [phone]. Ricardo Rocha PLT 253 103/ul Normal 150-450 [facility] Comment on above: Performed By: #### C BC ####[facility] Mkkoknalzk9168 [place] [phone]. Ricardo Rocha RBC 3.69 106/ul Critically low 4.20-5.40 [facility] Comment on above: Performed By: #### C BC ####[facility] Hesdekapqp6141 [place] [phone]. Ricardo Rocha WBC 8.0 103/ul Normal 4.0-11.0 [facility] Comment on above: Performed By: #### C BC ####[facility] Hzuhqtifmj8490 [place] [phone]. Ricardo Rocha CRPon 08-03-2022 CRP 3.1 mg/dL Critically high <=1.0 The [facility] Comment on above: Performed By: #### C RP, BMP, URIC ####[facility] Nvaygkfvze2397 [place] [phone]. Ricardo Rocha CULTURE BLOODon 08-03-2022 Microscopic examination of blood, culture Culture Observations: NO GROWTH AT 5 DAYS. Normal [facility] Comment on above: Performed By: #### B LDCX2 ####[facility] Lbeewpqirm6739 [place] [phone]. Ricardo Rocha Microscopic examination of blood, culture Culture Observations: NO GROWTH AT 5 DAYS. Normal [facility] Comment on above: Performed By: #### B LDCX1 ####[facility] Oiqxcourdi7169[address] [place], [place] [address]Dr. Ricardo Rocha ER URINE PROFILEon 2 Bilirubin Ql (U) Negative Normal NEGATIVE The [facility] Comment on above: Performed By: #### E RUR ####[facility] Wwldtaldoq364[address] [place], [place] [address]Dr. Ricardo Rocha Clarity (U) CLEAR Normal CLEAR [facility] Comment on above: Performed By: #### E RUR ####[facility] Hpsehvlfgo48[address] [place], [place] [address]Dr. Ricardo Rocha Color (U) LT. YELLOW Normal YELLOW [facility] Comment on above: Performed By: #### E RUR ####[facility] Zbkecmdyzs18[address] [place], [place] [address]Dr. Nanomarcial Rocha ERUAHD A micrscopic examination will be performed if indicated. Normal [facility] Comment on above: Performed By: #### E RUR ####[facility] Ergqlywrfp9949[address] [place], [place] [address]Dr. Ricardo Rocha Glucose Ql (U) 100 mg/dl Abnormal NEGATIVE The [facility] Comment on above: Performed By: #### E RUR ####[facility] Ayfgtaqvju6249[address] [place], [place] [address]Dr. Nanomarcial Rocha Hemoglobin Ql (U) Negative Normal NEGATIVE [facility] Comment on above: Performed By: #### E RUR ####[facility] Ilprnmydcy1308[address] [place], [place] [address]Dr. Ricardo Rocha Ketones Ql (U) Negative Normal NEGATIVE [facility] Comment on above: Performed By: #### E RUR ####[facility] Pozxyqppvu8926[address] [place], [place] [address]Dr. Ricardo Rocha LEUKOCYTES Negative Normal NEGATIVE [facility] Comment on above: Performed By: #### E RUR ####[facility] Ezyymxxspx0068[address] [place], [place] [address]Dr. Ricardo Rocha Nitrite Ql (U) Negative Normal NEGATIVE [facility] Comment on above: Performed By: #### E RUR ####[facility] Pghdkzpbgj3659 [place] [address]Dr. Ricardo Rocha pH (U) 6.0 [pH] Normal 5-9 [facility] Comment on above: Performed By: #### E RUR ####[facility] Lrlaskwpyt[address] [place], [place] [address]Dr. Ricardo Rocha SPEC GRAVITY 1.010 Normal 1.005-<=1.02 5 [facility] Comment on above: Performed By: #### E RUR ####[facility] Evasoqjhos1055[address] [place], [place] [address]Dr. Ricardo Rocha UA PROTEIN Negative Normal NEGATIVE/ TRACE [facility] Comment on above: Performed By: #### E RUR ####[facility] Kidlahynxz6593[address] [place], [place] [address]Dr. Ricardo Rocha UR MICRO IND NOT INDICATED Normal [facility] Comment on above: Performed By: #### E RUR ####[facility] Ttdbeckvge4942[address] [place], [place] [address]Dr. Ricardo Rocha Urobilinogen Qn (U) 0.2 {Madeleine'U}/dL Normal 0.2 - 1. 0 [facility] Comment on above: Performed By: #### E RUR ####[facility] Gnsunbceqz7244[address] [place], [place] [address]Dr. Ricardo Rocha LACTATE/LACTIC ACIDon 2021 Lactate [Moles/Vol] 0.5 mmol/L Normal 0.4-1.9 [facility] Comment on above: Performed By: #### L ACT ####[facility] Zqojjafdze57[address] [place], [place] [address]Dr. Ricardo Rocha PROF CHEM 8 (BAS METB)on Anion gap [Moles/Vol] 12.9 mmol/L Normal [facility] Comment on above: Performed By: #### C RP, BMP, URIC ####[facility] Opmzhlaihr12[address] [place], [place] [address]Dr. Ricardo Rocha Calcium [Mass/Vol] 9.0 mg/dL Normal 8.5-10.1 [facility] Comment on above: Performed By: #### C RP, BMP, URIC ####[facility] Zxkurjcgev7504 [place] [address]Dr. Ricardo Rocha Chloride [Moles/Vol] 102 mmol/L Normal 98-107 [facility] Comment on above: Performed By: #### C RP, BMP, URIC ####[facility] Bscyonyliu7969 [place] [address]Dr. Ricardo Rocha CO2 [Moles/Vol] 23.9 mmol/L Normal 21.0-32.0 The [facility] Comment on above: Performed By: #### C RP, BMP, URIC ####[facility] Zoewnrsocy[address] [place], [place] [address]Dr. Ricardo Rocha Creatinine [Mass/Vol] 1.36 mg/dL Critically high 0.55-1.02 [facility] Comment on above: Performed By: #### C RP, BMP, URIC ####[facility] Tiqzeymxop7407 [place] [address]Dr. Ricardo Rocha EGFR-AF BAHRAINI 47 mL/min/1.73m2 Critically low >=60 [facility] Comment on above: Performed By: #### C RP, BMP, URIC ####[facility] Shiwsdxymb[address] [place], [place] [address]Dr. Ricardo Rocha EGFR-NON AF BAHRAINI 39 mL/min/1.73m2 Critically low >=60 [facility] Comment on above: Performed By: #### C RP, BMP, URIC ####[facility] Ilfskeecta4426 [place] [address]Dr. Ricardo Rocha Glucose [Mass/Vol] 125 mg/dL Critically high 74-106 [facility] Comment on above: Performed By: #### C RP, BMP, URIC ####[facility] Kptqnfhogb1656 [place] [address]Dr. Ricardo Rocha Potassium [Moles/Vol] 4.8 mmol/L Normal 3.5-5.1 [facility] Comment on above: Performed By: #### C RP, BMP, URIC ####[facility] Udbqofxkbs5812 [place] [address]Dr. Ricardo Rocha Sodium [Moles/Vol] 134 mmol/L Critically low 136-145 Th e [facility] Comment on above: Performed By: #### C RP, BMP, URIC ####[facility] Kxxrwztnea2926 [place] [address]Dr. Ricardo Rocha Urea nitrogen [Mass/Vol] 22.0 mg/dL Critically high 7.0-18.0 [facility] Comment on above: Performed By: #### C RP, BMP, URIC ####[facility] Eftebeyaqv2333[address] [place], [place] [address]Dr. Ricardo Rocha Urea nitrogen/Creatinine [Mass ratio] 16.2 mg/mg Normal [facility] Comment on above: Performed By: #### C RP, BMP, URIC ####[facility] Esqitlhftu2376[address] [place], [place] [address]Dr. Ricardo Rocha SED RATE WESTERGRENon 2021 SED RATE 95 mm/hr Critically high <=30 The [facility] Comment on above: Performed By: #### S EDR ####[facility] Rgtmnoivzm8[address] [place], [place] [address]Dr. Ricardo Rocha URIC ACID SERUMon 08-03-2022 Urate [Mass/Vol] 4.7 mg/dL Normal 2.6-6.0 The [facility] Comment on above: Performed By: #### C RP, BMP, URIC ####[facility] Cwdsdxuzno55[address] [place], [place] [address]Dr. Ricardo Rocha XR FOOT LT MIN 3 VIEWSon XR FOOT LT MIN 3 VIEWS Normal [facility] PROF CHEM 8 (BAS METB)on Anion gap [Moles/Vol] 13.8 mmol/L Normal [facility] Comment on above: Performed By: #### B MP ####[facility] Vwdyalbzau8[address] [place], [place] [address]Dr. Ricardo Rocha Calcium [Mass/Vol] 8.9 mg/dL Normal 8.5-10.1 The [facility] Comment on above: Performed By: #### B MP ####[facility] Sahyvodvrz0453 [place] [address]Dr. Ricardo Aj Chloride [Moles/Vol] 101 mmol/L Normal 98-107 [facility] Comment on above: Performed By: #### B MP ####[facility] Zoeccrpjiw3046 [place] [phone]. Nanomarcial Aj CO2 [Moles/Vol] 22.8 mmol/L Normal 21.0-32.0 [facility] Comment on above: Performed By: #### B MP ####[facility] Dxefzzqxfu7872 [place] [address]Dr. Nanomarcial Aj Creatinine [Mass/Vol] 1.43 mg/dL Critically high 0.55-1.02 [facility] Comment on above: Performed By: #### B MP ####[facility] Yxowdmsndg035[address] [place], [place] [address]Dr. Ricardo Rocha EGFR-AF BAHRAINI 45 mL/min/1.73m2 Critically low >=60 [facility] Comment on above: Performed By: #### B MP ####[facility] Ioiymxqcgp8756[address] [place], [place] [address]Dr. Nanomarcial Aj EGFR-NON AF BAHRAINI 37 mL/min/1.73m2 Critically low >=60 [facility] Comment on above: Performed By: #### B MP ####[facility] Hzhaneybgo0367 [place] [address]Dr. Ricardo Rocha Glucose [Mass/Vol] 279 mg/dL Critically high 74-106 [facility] Comment on above: Performed By: #### B MP ####[facility] Xxqkfpnhwi2627 [place] [phone]. Ricardo Rocha Potassium [Moles/Vol] 4.6 mmol/L Normal 3.5-5.1 [facility] Comment on above: Performed By: #### B MP ####[facility] Jmdlgxsbow8[address] [place], [place] [address]Dr. Ricardo Rocha Sodium [Moles/Vol] 133 mmol/L Critically low 136-145 e [facility] Comment on above: Performed By: #### B MP ####[facility] Yztkbmbmru5695 [place] [phone]. Ricardo Rocha Urea nitrogen [Mass/Vol] 24.0 mg/dL Critically high 7.0-18.0 [facility] Comment on above: Performed By: #### B MP ####[facility] Ecuuecvhdy3726 [place] [phone]. Ricardo Rocha Urea nitrogen/Creatinine [Mass ratio] 16.8 mg/mg Normal [facility] Comment on above: Performed By: #### B MP ####[facility] Mxwhojmcno2637[address] [place], [place] [address]Dr. Ricardo Rocha ACID FAST SMEAR AND CXon Acid Fast Culture Negative Normal [facility] Comment on above: Result Comment: No a amilcar fast bacilli isolated after 6 weeks. Performed By: #### A FB ####[facility] Ppmupwytzg[address] [place], [place] [address]Dr. Ricardo Rocha Acid Fast Smear Negative Normal [facility] Comment on above: Performed By: #### A FB ####[facility] Idrnlsxqwr1458[address] [place], [place] [address]Dr. Ricardo Rocha [employer] Specimen Processing Direct Inoculation [facility] Comment on above: Performed By: #### A FB ####[facility] Ncvqkyqffj9[address] [place], [place] [address]Dr. Ricardo Rocha [employer] Specimen Processing Tissue Grinding Normal [facility] Comment on above: Performed By: #### A FB ####[facility] Buprztvfqt4627[address] [place], [place] [address]Dr. Ricardo Rocha FUNGAL CULTUREon 07-11-2022 Fungus (Mycology) Culture Final report Normal [facility] Comment on above: Performed By: #### C XFUN ####[facility] Zbonjvpxhw34[address] [place], [place] [address]Dr. Ricardo Rocha Fungus Stain Final report Normal [facility] Comment on above: Performed By: #### C XFUN ####[facility] Jezpczkbhv3286 [place] [address]Dr. Nanomarcial Aj Result 1 Comment Normal [facility] Comment on above: Result Comment: AAYUSH/ Calcofluor preparation: no fungus observed. Performed By: #### C XFUN ####[facility] Dfvssnzzsl5080[address] [place], [place] [address]Dr. Nanomarcial Aj Result Comment: No y east or mold isolated after 4 weeks. PROF CHEM 8 (BAS METB)on Anion gap [Moles/Vol] 15.1 mmol/L Normal [facility] Comment on above: Performed By: #### B MP ####[facility] Qdgmoedbpy6808[address] [place], [place] [address]Dr. Ricardo Rocha Calcium [Mass/Vol] 9.0 mg/dL Normal 8.5-10.1 [facility] Comment on above: Performed By: #### B MP ####[facility] Pvjoavemac0904[address] [place], [place] [address]Dr. Ricardo Rocha Chloride [Moles/Vol] 101 mmol/L Normal 98-107 [facility] Comment on above: Performed By: #### B MP ####[facility] Vkvnsldagn8724[address] [place], [place] [address]Dr. Ricardo Rocha CO2 [Moles/Vol] 18.5 mmol/L Critically low 21.0-32.0 [facility] Comment on above: Performed By: #### B MP ####[facility] Vsmdcekbaj179[address] [place], [place] [address]Dr. Ricardo Rocha Creatinine [Mass/Vol] 2.05 mg/dL Critically high 0.55-1.02 [facility] Comment on above: Performed By: #### B MP ####[facility] Fpfxfkscud2897[address] [place], [place] [address]Dr. Ricardo Rocha EGFR-AF BAHRAINI 30 mL/min/1.73m2 Critically low >=60 [facility] Comment on above: Performed By: #### B MP ####[facility] Wsqweovyvo4920[address] [place], [place] [address]Dr. Ricardo Rocha EGFR-NON AF BAHRAINI 24 mL/min/1.73m2 Critically low >=60 [facility] Comment on above: Performed By: #### B MP ####[facility] Uupxezsrel3205 [place] [address]Dr. Nanomarcial Aj Glucose [Mass/Vol] 134 mg/dL Critically high 74-106 T [facility] Comment on above: Performed By: #### B MP ####[facility] Ngswaxtmai3045 [place] [address]Dr. Ricardo Rocha Potassium [Moles/Vol] 5.6 mmol/L Critically high 3.5-5.1 [facility] Comment on above: Performed By: #### B MP ####[facility] Fjgilgkwyw4230[address] [place], [place] [address]Dr. Ricardo Rocha Sodium [Moles/Vol] 129 mmol/L Critically low 136-145 [facility] Comment on above: Performed By: #### B MP ####[facility] Divyayztue8498[address] [place], [place] [address]Dr. Ricardo Rocha Urea nitrogen [Mass/Vol] 57.0 mg/dL Critically high 7.0-18.0 [facility] Comment on above: Performed By: #### B MP ####[facility] Pbbpweykjk3759[address] [place], [place] [address]Dr. Ricardo Rohca Urea nitrogen/Creatinine [Mass ratio] 27.8 mg/mg Normal [facility] Comment on above: Performed By: #### B MP ####[facility] Widlmcldrh8143[address] [place], [place] [address]Dr. Ricardo Rocha CBC AUTO DIFFon 07-06-2022 BASO # 0.0 103/ul Normal 0.0-0.1 [facility] Comment on above: Performed By: #### C BC ####[facility] Rzgrawvvvr147[address] [place], [place] [address]Dr. Ricardo Rocha Basophils/100 WBC (Bld) 0.6 % Normal 0.2-2.0 [facility] Comment on above: Performed By: #### C BC ####[facility] Pbsskhxpfe027[address] [place], [place] [address]Dr. Ricardo Rocha EO # 0.1 103/ul Normal 0.0-0.7 [facility] Comment on above: Performed By: #### C BC ####[facility] Optxpisfrp5075 [place] [address]Dr. Ricardo Aj Eosinophils/100 WBC (Bld) 1.7 % Normal 0.9-7.0 [facility] Comment on above: Performed By: #### C BC ####[facility] Alssdruvmb6536[address] [place], [place] [address]Dr. Nanomarcial Aj Erythrocyte distribution width (RBC) [Ratio] 15.2 % Critically high 11.0-15.0 [facility] Comment on above: Performed By: #### C BC ####[facility] Dlklnhuhya6674[address] [place], [place] [address]Dr. Ricardo Rocha Hematocrit (Bld) [Volume fraction] 34.6 % Critically low 36.0-48.0 [facility] Comment on above: Performed By: #### C BC ####[facility] Cfhwntvgai8115[address] [place], [place] [address]Dr. Ricardo Rocha Hemoglobin (Bld) [Mass/Vol] 10.5 g/dL Critically low 12.0-16.0 [facility] Comment on above: Performed By: #### C BC ####[facility] Fpsxmrnkei[address] [place], [place] [address]Dr. Ricardo Rocha IG # 0.01 10e3/ul Normal 0.00-0.03 [facility] Comment on above: Performed By: #### C BC ####[facility] Vauemsesrp4785[address] [place], [place] [address]Dr. Ricardo Rocha IG % 0.2 % Normal 0.0-0.5 [facility] Comment on above: Performed By: #### C BC ####[facility] Btvwdqglsa2640[address] [place], [place] [address]Dr. Ricardo Rocha LYMPH # 2.4 103/ul Normal 1.2-3.8 [facility] Comment on above: Performed By: #### C BC ####[facility] Vrcvlfqqnv8837[address] [place], [place] [address]Dr. Ricardo Rocha Lymphocytes/100 WBC (Bld) 44.4 % Normal 20.5-60.0 [facility] Comment on above: Performed By: #### C BC ####[facility] Dkkzchtjtj1905 [place] [address]DrIrina Rocha MANUAL DIFF REQ NO Normal [facility] Comment on above: Performed By: #### C BC ####[facility] Bzmrqbuuod1917 [place] [address]DrIrina Rocha MCH (RBC) [Entitic mass] 25.0 pg Critically low 26.7-34.0 [facility] Comment on above: Performed By: #### C BC ####[facility] Warzwouets0124[address] [place], [place] [address]DrIrina Rocha MCHC (RBC) [Mass/Vol] 30.3 g/dL Normal 29.9-35.2 [facility] Comment on above: Performed By: #### C BC ####[facility] Biaefdappp1643[address] [place], [place] [address]DrIrina Rocha MCV (RBC) [Entitic vol] 82.4 fL Normal 81.0-99.0 [facility] Comment on above: Performed By: #### C BC ####[facility] Rgeyabivrm653[address] [place], [place] [address]DrIrina Rocha MONO # 0.3 103/ul Normal 0.3-0.8 [facility] Comment on above: Performed By: #### C BC ####[facility] Jjyrmiwcgg7412[address] [place], [place] [address]DrIrina Rocha Monocytes/100 WBC (Bld) 5.1 % Normal 1.7-12.0 [facility] Comment on above: Performed By: #### C BC ####[facility] Rvtbuvzdys7258[address] [place], [place] [address]DrIrina Rocha NEUT # 2.5 103/ul Normal 1.4-6.5 [facility] Comment on above: Performed By: #### C BC ####[facility] Fdlogwdsdw3701[address] [place], [place] [address]DrIrina Rocha Neutrophils/100 WBC (Bld) 48.0 % Normal 43.0-75.0 [facility] Comment on above: Performed By: #### C BC ####[facility] Havaqgajbv5385 [place] [address]DrIrina Ricardo Aj Platelet mean volume (Bld) [Entitic vol] 10.7 fL Normal 9.5-13.5 [facility] Comment on above: Performed By: #### C BC ####[facility] Uhgvliaomi[address] [place], [place] [address]DrIrina Rocha PLT 261 103/ul Normal 150-450 [facility] Comment on above: Performed By: #### C BC ####[facility] Uapuhlgyli0586[address] [place], [place] [address]DrIrina Rocha RBC 4.20 106/ul Normal 4.20-5.40 [facility] Comment on above: Performed By: #### C BC ####[facility] Gkvfaznbkd5[address] [place], [place] [address]DrIrina Rocha WBC 5.3 103/ul Normal 4.0-11.0 [facility] Comment on above: Performed By: #### C BC ####[facility] Wsryjfayfs90[address] [place], [place] [address]DrIrina Nanomarcial Rocha GLYCOHEMOGLOBIN A1Con 2021 ADA RECOMMENDATION SEE BELOW Normal [facility] Comment on above: Result Comment: ADA RECOMMENDED LIMIT 4.0 - 6.0 ADA THERAPEUTIC TARGET < 7.0 ACTION SUGGESTED > 7.0 Performed By: #### A 1C ####[facility] [address] [place], [place] [address]DrIrina Rocha Glucose [Mass/Vol] 289 mg/dL Normal [facility] Comment on above: Performed By: #### A 1C ####[facility] Tpxmkonbxn[address] [place], [place] [address]DrIrina Rocha HbA1c (Bld) [Mass fraction] 11.7 % Critically high 4.5-6.2 [facility] Comment on above: Performed By: #### A 1C ####[facility] Xhbaxypfuf[address] [place], [place] [address]Dr. Ricardo Rocha LIPID PROFILEon 07-06-2022 CHOL-HDL RATIO NORM SEE BELOW Normal [facility] Comment on above: Result Comment: 3.3 - 4.4 LOW RISK 4.4 - 7.1 AVERAGE RISK 7.1 - 11.0 MODERATE RISK >11.0 HIGH RISK Performed By: #### T SH, CMP, LIPID ####[facility] Knwpjdrxik67[address] [place], [place] [address]Uo. Ricardo Rocha Cholesterol [Mass/Vol] 284 mg/dL Critically high <=200 [facility] Comment on above: Performed By: #### T SH, CMP, LIPID ####[facility] Ntecblsssg[address] [place] [id number]. Ricardo Rocha Cholesterol in HDL [Mass/Vol] 40 mg/dL Normal 40-60 [facility] Comment on above: Performed By: #### T SH, CMP, LIPID ####[facility] Mnqnbifpyt8648 [place] [phone]. Ricardo Aj Cholesterol in LDL [Mass/Vol] 167.8 mg/dL Normal [facility] Comment on above: Performed By: #### T SH, CMP, LIPID ####[facility] Rksdvrvsrv8238 [place] [phone]. Ricardo Rocha Cholesterol.total/Ch olesterol in HDL [Mass ratio] 7.1 {ratio} Normal [facility] Comment on above: Performed By: #### T SH, CMP, LIPID ####[facility] Oxomriolfh2417 [place] [phone]. Ricardo Rocha HDL NORMAL > or = 60 mg/dl - LO W CARDIOVASCULAR RISK <40 mg/dl - HIGH CARDIOVASCULAR RISK Normal [facility] Comment on above: Performed By: #### T SH, CMP, LIPID ####[facility] Gwagnirdpq[address] [place] [phone]. Ricardo Rocha LDL CALC NORMAL SEE BELOW Normal [facility] Comment on above: Result Comment: <100 mg/dl OPTIMAL 100 - 129 mg/dl NEAR OR ABOVE OPTIMAL 130 - 159 mg/dl BORDERLINE HIGH 160 - 189 mg/dl HIGH >190 mg/dl VERY HIGH Performed By: #### T SH, CMP, LIPID ####[facility] Qtfyaaplml[address] [place] [address]Dr. Ricardo Rocha Triglyceride [Mass/Vol] 381 mg/dL Critically high <=150 [facility] Comment on above: Performed By: #### T SH, CMP, LIPID ####[facility] Jljakktnbk[address] [place] [address]Dr. Ricardo Rocha VLDL CALC 76.2 mg/dL Normal [facility] Comment on above: Performed By: #### T SH, CMP, LIPID ####[facility] Tejyovvrdm[address] [place] [address]Dr. Ricardo Rocha MICROALBUMIN, RAND URon 06-21 mALB <1.3 Normal <=30.0 [facility] Comment on above: Performed By: #### M ALBR ####[facility] Yzzpebaxvz7344 [place] [address]Dr. Ricardo Rocha PROF 14(COMP METB)on 022 Albumin [Mass/Vol] 3.3 g/dL Critically low 3.4-5.0 [facility] Comment on above: Performed By: #### T SH, CMP, LIPID ####[facility] Kizcuqswds1172 [place] [address]Dr. Ricardo Rocha Albumin/Globulin [Mass ratio] 0.5 {ratio} Normal [facility] Comment on above: Performed By: #### T SH, CMP, LIPID ####[facility] Fsivcjzvbc8367 [place] [address]Dr. Ricardo Rocha ALP [Catalytic activity/Vol] 129 U/L Critically high 46-116 [facility] Comment on above: Performed By: #### T SH, CMP, LIPID ####[facility] Sqeezmgkmo5145 [place] [address]Dr. Ricardo Rocha ALT [Catalytic activity/Vol] 22 U/L Normal 14-59 [facility] Comment on above: Performed By: #### T SH, CMP, LIPID ####[facility] Tqjzahfmfd0655 [place] [address]Dr. Ricardo Rocha Anion gap [Moles/Vol] 16.1 mmol/L Normal [facility] Comment on above: Performed By: #### T SH, CMP, LIPID ####[facility] Ewidujhpcb9602 [place] [address]Dr. Ricardo Rocha AST [Catalytic activity/Vol] 22 U/L Normal 15-37 [facility] Comment on above: Performed By: #### T SH, CMP, LIPID ####[facility] Nksgbkoobs0414 [place] [address]Dr. Ricardo Rocha Bilirubin [Mass/Vol] 0.2 mg/dL Normal 0.2-1.0 [facility] Comment on above: Performed By: #### T SH, CMP, LIPID ####[facility] Ocsgcioh[address] [place], [place] [address]Dr. Ricardo Rocha Calcium [Mass/Vol] 9.4 mg/dL Normal 8.5-10.1 [facility] Comment on above: Performed By: #### T ANTONIA, CMP, LIPID ####[facility] Jakrlibvbe8230 [place] [address]Dr. Ricardo Rocha Chloride [Moles/Vol] 102 mmol/L Normal 98-107 [facility] Comment on above: Performed By: #### T SH, CMP, LIPID ####[facility] Agpocalxdp0675 [place] [address]Dr. Ricardo Rocha CO2 [Moles/Vol] 18.4 mmol/L Critically low 21.0-32.0 [facility] Comment on above: Performed By: #### T SH, CMP, LIPID ####[facility] Uicqdefpsj5594 [place] [address]Dr. Ricardo Rocha Creatinine [Mass/Vol] 2.01 mg/dL Critically high 0.55-1.02 [facility] Comment on above: Performed By: #### T SH, CMP, LIPID ####[facility] Qebhlfzqeg3717 [place] [address]Dr. Ricardo Rocha EGFR-AF BAHRAINI 30 mL/min/1.73m2 Critically low >=60 [facility] Comment on above: Performed By: #### T SH, CMP, LIPID ####[facility] Lrvkbqioxa0640 [place] [phone]. Ricardo Rocha EGFR-NON AF BAHRAINI 25 mL/min/1.73m2 Critically low >=60 [facility] Comment on above: Performed By: #### T SH, CMP, LIPID ####[facility] Ejmqbdkveo0748 [place] [address]Dr. Ricardo Rocha Globulin (S) [Mass/Vol] 6.3 g/dL Normal [facility] Comment on above: Performed By: #### T SH, CMP, LIPID ####[facility] Takirvzazc7743 [place] [address]Dr. Ricardo Rocha Glucose [Mass/Vol] 118 mg/dL Critically high 74-106 [facility] [place] Comment on above: Performed By: #### T SH, CMP, LIPID ####[facility] Oouearwmmy1639 [place] [address]Dr. Ricardo Rocha Potassium [Moles/Vol] 5.5 mmol/L Critically high 3.5-5.1 [facility] Comment on above: Performed By: #### T SH, CMP, LIPID ####[facility] Zoxkioilny1417 [place] [address]Dr. Ricardo Rocha Protein [Mass/Vol] 9.6 g/dL Critically high 6.4-8.2 [facility] [place] Comment on above: Performed By: #### T SH, CMP, LIPID ####[facility] Oehorczaoy6265 [place] [address]Dr. Ricardo Rocha Sodium [Moles/Vol] 131 mmol/L Critically low 136-145 [facility] Comment on above: Performed By: #### T SH, CMP, LIPID ####[facility] Mzuapiyylj8338 [place] [address]Dr. Ricardo Rocha Urea nitrogen [Mass/Vol] 45.0 mg/dL Critically high 7.0-18.0 [facility] Comment on above: Performed By: #### T SH, CMP, LIPID ####[facility] Urxnakfzax0724 [place] [address]Dr. Yilan Rocha Urea nitrogen/Creatinine [Mass ratio] 22.4 mg/mg Normal [facility] Comment on above: Performed By: #### T SH, CMP, LIPID ####[facility] Kuytuenypy4144 [place] [phone]. Nanomarcial Rocha TSHon 07-06-2022 TSH 1.178 uIU/mL Normal 0.358-3.740 [facility] Comment on above: Performed By: #### T SH, CMP, LIPID ####[facility] Kfiipjhdjc4743 [place] [address]Dr. Ricardo Rocha UA RANDOM W/MICROSCOPICon BACTERIA NONE SEEN Normal NONE SEEN [facility] Comment on above: Performed By: #### U AMIC ####[facility] Mwnmslyknl[address] [place], [place] [address]Dr. Ricardo Rocha Bilirubin Ql (U) Negative Normal NEGATIVE [facility] Comment on above: Performed By: #### U AMIC ####[facility] Pxuftxkoro[address] [place], [place] [address]Dr. Ricardo Rocha CAST NONE SEEN Normal NONE SEEN [facility] Comment on above: Performed By: #### U AMIC ####[facility] Tuctsnrhmg[address] [place], [place] [address]Dr. Ricardo Rocha Clarity (U) CLEAR Normal CLEAR [facility] Comment on above: Performed By: #### U AMIC ####[facility] Knzmxrceka1062 [place] [address]Dr. Ricardo Rocha Color (U) LT. YELLOW Normal YELLOW [facility] Comment on above: Performed By: #### U AMIC ####[facility] Ckidtifsgd3872 [place] [address]Dr. Ricardo Rocha Crystals LM Nom (Urine sed) NONE SEEN Normal NONE SEEN [facility] Comment on above: Performed By: #### U AMIC ####[facility] Hsngrxvnaa3946 [place] [address]Dr. Ricardo Rocha Epithelial cells LM Ql (Urine sed) NONE SEEN Normal NONE SEEN /RARE [facility] Comment on above: Performed By: #### U AMIC ####[facility] Ylggxlxozl6981 [place] [address]Dr. Ricardo Rocha Glucose Ql (U) Negative Normal NEGATIVE [facility] Comment on above: Performed By: #### U AMIC ####[facility] Yezfskmnos[address] [place], [place] [address]Dr. Ricardo Rocha Hemoglobin Ql (U) Negative Normal NEGATIVE [facility] Comment on above: Performed By: #### U AMIC ####[facility] Fxhosceivv85[address] [place], [place] [address]Dr. Ricardo Rocha Ketones Ql (U) Negative Normal NEGATIVE [facility] Comment on above: Performed By: #### U AMIC ####[facility] Rywngxttgv1220[address] [place], [place] [address]Dr. Ricardo Rocha LEUKOCYTES Negative Normal NEGATIVE [facility] Comment on above: Performed By: #### U AMIC ####[facility] Udypmvtbkz44[address] [place], [place] [address]Dr. Ricardo Rocha MUCOUS NONE SEEN Normal NONE SEEN [facility] Comment on above: Performed By: #### U AMIC ####[facility] Cnwtwwrvez83[address] [place], [place] [address]Dr. Ricardo Rocha Nitrite Ql (U) Negative Normal NEGATIVE [facility] Comment on above: Performed By: #### U AMIC ####[facility] Ugdysolpzt6[address] [place], [place] [address]Dr. Ricardo Rocha pH (U) 5.5 [pH] Normal 5-9 [facility] Comment on above: Performed By: #### U AMIC ####[facility] Tntcgnzrrh7[address] [place], [place] [address]Dr. Ricardo Rocha RBC NONE SEEN Abnormal 0-2 [facility] Comment on above: Performed By: #### U AMIC ####[facility] Jlupezhlfa68[address] [place], [place] [address]Dr. Ricardo Rocha SPEC GRAVITY 1.020 Normal 1.005-<=1.02 5 [facility] Comment on above: Performed By: #### U AMIC ####[facility] Dyxnajubpw8998 [place] [address]Dr. Ricardo Aj UA PROTEIN Negative Normal NEGATIVE/ TRACE [facility] Comment on above: Performed By: #### U AMIC ####[facility] Xgexqhuhis6588 [place] [address]Dr. Ricardo Rocha Urobilinogen Qn (U) 0.2 {Madeleine'U}/dL Normal 0.2 - 1. 0 [facility] Comment on above: Performed By: #### U AMIC ####[facility] Hurvahhkga6222 [place] [address]Dr. Nanomarcial Rocha WBC NONE SEEN Normal NONE SEEN [facility] Comment on above: Performed By: #### U AMIC ####[facility] Akkuccpyov4[address] [place], [place] [address]Dr. Ricardo Aj CBC W MANUAL DIFFon 06-16-20 22 ATYPICAL LYMPH # Normal [facility] Comment on above: Performed By: #### C BCMAN ####[facility] Bngopyqmmy[address] [place], [place] [address]Dr. Ricardo Aj ATYPICAL LYMPH % Normal [facility] Comment on above: Performed By: #### C BCMAN ####[facility] Fmuwviubka09[address] [place], [place] [address]Dr. Nanomarcial Aj BAND # 0.2 103/ul Normal 0.0-0.3 [facility] Comment on above: Performed By: #### C BCMAN ####[facility] Qdzegmiung[address] [place], [place] [address]Dr. Ricardo Rocha BAND % 2 % Normal 0-5 [facility] Comment on above: Performed By: #### C BCMAN ####[facility] Mdrfwindjl13[address] [place], [place] [address]Dr. Ricardo Rocha BASOM # 0.00 103/ul Normal 0.00-0.10 [facility] Comment on above: Performed By: #### C BCMAN ####[facility] Ktsejnhlqh2976 [place] [address]Dr. Ricardo Rocha BASOM % 0.0 % Critically low 0.2-2.0 [facility] Comment on above: Performed By: #### C DWAINE ####[facility] Swhilcjkoo0181 [place] [phone]. Ricardo Rocha BLAST # Normal [facility] Comment on above: Performed By: #### C BCRED ####[facility] Rgfkzdonav0048 [place] [phone]. Ricardo Rocha BLAST % Normal [facility] Comment on above: Performed By: #### C BCRED ####[facility] Hbrlmnpint8113 [place] [address]Dr. Ricardo Rocha CORRECTED WBC Normal 4.0-11.0 [facility] Comment on above: Performed By: #### C DWAINE ####[facility] Szmgabyzrj4[address] [place], [place] [address]Dr. Ricardo Rocha EOS # 0.11 103/ul Normal 0.00-0.70 [facility] Comment on above: Performed By: #### C DWAINE ####[facility] Fmdtaxteev17[address] [place], [place] [address]Dr. Ricardo Rocha EOS% 1.0 % Normal 0.9-7.0 [facility] Comment on above: Performed By: #### C DWAINE ####[facility] Tdaexczpxi[address] [place], [place] [address]Dr. Ricardo Rocha HCT 24.2 % Critically low 36.0-48.0 [facility] Comment on above: Performed By: #### C DWAINE ####[facility] Ejdfnlcjgz36[address] [place], [place] [address]Dr. Ricardo Rocha HGB 7.9 g/dl Critically low 12.0-16.0 [facility] Comment on above: Performed By: #### C DWAINE ####[facility] Djuahlynbi[address] [place], [place] [address]Dr. Ricardo Rocha LYMPHM # 1.81 103/ul Normal 1.20-3.80 [facility] Comment on above: Performed By: #### C DWAINE ####[facility] Hjlrbzyenv63[address] [place], [place] [address]Dr. Ricardo Rocha LYMPHM% 16.0 % Critically low 20.5-60.0 [facility] Comment on above: Performed By: #### C DWAINE ####[facility] Ylsfzlupkw1382 [place] [address]Dr. Ricardo Rocha MCH 25.2 pg Critically low 26.7-34.0 [facility] Comment on above: Performed By: #### C DWAINE ####[facility] Gmlywuibek1252 [place] [phone]. Ricardo Rocha MCHC 32.6 g/dl Normal 29.9-35.2 [facility] Comment on above: Performed By: #### C DWAINE ####[facility] Bjvxtgtjdy2932 [place] [address]Dr. Ricardo Rocha MCV 77.3 fL Critically low 81.0-99.0 [facility] Comment on above: Performed By: #### C DWAINE ####[facility] Jskqbqgmvp9[address] [place], [place] [address]Dr. Ricardo Rocha METAMYELOCYTE # 0.5 103/ul Normal [facility] Comment on above: Performed By: #### C DWAINE ####[facility] Wbagyemmiw[address] [place], [place] [address]Dr. Ricardo Rocha METAMYELOCYTE % 4 % Normal [facility] Comment on above: Performed By: #### C DWAINE ####[facility] Wyvgmwnyjl9[address] [place], [place] [address]Dr. Ricardo Rocha MONOM# 0.45 103/ul Normal 0.30-0.80 [facility] Comment on above: Performed By: #### C DWAINE ####[facility] Dtdqdkbsjt1391 [place] [id number]. Ricardo Rocha MONOM% 4.0 % Normal 1.7-12.0 [facility] Comment on above: Performed By: #### C DWAINE ####[facility] Pcjkjaxvgn7044 [place] [phone]. Ricardo Rocha MPV 10.4 fL Normal 9.5-13.5 [facility] Comment on above: Performed By: #### C DWAINE ####[facility] Eniixsyltn8513 [place], [place] [address]Nl. Ricardo Rocha MYELOCYTE # 0.5 103/ul Normal [facility] Comment on above: Performed By: #### C BCRED ####[facility] Aivmznyune1235 [place], [place] [address]Jz. Ricardo Rocha MYELOCYTE % 4 % Normal [facility] Comment on above: Performed By: #### C DWAINE ####[facility] Gjtoimmkkp4275 [place] [phone]. Ricardo Rocha NRBC Normal [facility] Comment on above: Performed By: #### C DWAINE ####[facility] Fbfltbdeoz5499 [place] [phone]. Ricardo Rocha PLT 325 103/ul Normal 150-450 [facility] Comment on above: Performed By: #### C DWAINE ####[facility] Kdexssbtnx2294 [place] [phone]. Ricardo Rocha RBC 3.13 106/ul Critically low 4.20-5.40 [facility] Comment on above: Performed By: #### C DWAINE ####[facility] Ujeataapqs5417 [place] [phone]. Ricardo Rocha RDW 13.7 % Normal 11.0-15.0 [facility] Comment on above: Performed By: #### C DWAINE ####[facility] Otedxckfmg9595 [place] [phone]. Ricardo Rocha SEG # 7.80 103/ul Critically high 1.40-6.50 [facility] Comment on above: Performed By: #### C DWAINE ####[facility] Ysanwcmjsh5747 [place] [phone]. Ricardo Rocha SEG % 69.0 % Normal 43.0-75.0 [facility] Comment on above: Performed By: #### C DWAINE ####[facility] Syiuijkndw5332 [place] [phone]. Ricardo Rocha WBC 11.3 103/ul Critically high 4.0-11.0 [facility] Comment on above: Performed By: #### C BCMAN ####[facility] Vjnxsjldlp1999 [place] [address]Dr. Ricardo Rocha PROF 14(COMP METB)on 022 Albumin [Mass/Vol] 1.7 g/dL Critically low 3.4-5.0 [facility] Comment on above: Performed By: #### C MP ####[facility] Ufwuybxmph3410 [place] [address]Dr. Ricardo Rocha Albumin/Globulin [Mass ratio] 0.4 {ratio} Normal [facility] Comment on above: Performed By: #### C MP ####[facility] Gkzikptemo0206 [place] [address]Dr. Ricardo Rocha ALP [Catalytic activity/Vol] 174 U/L Critically high 46-116 [facility] Comment on above: Performed By: #### C MP ####[facility] Hlpfernmhp[address] [place], [place] [address]Dr. Ricardo Rocha ALT [Catalytic activity/Vol] 14 U/L Normal 14-59 [facility] Comment on above: Performed By: #### C MP ####[facility] Qvbbupmlwr6[address] [place], [place] [address]Dr. Ricardo Rocha Anion gap [Moles/Vol] 10.8 mmol/L Normal [facility] Comment on above: Performed By: #### C MP ####[facility] Dmtwprqnmf4[address] [place], [place] [address]Dr. Ricardo Rocha AST [Catalytic activity/Vol] 13 U/L Critically low 15-37 [facility] Comment on above: Performed By: #### C MP ####[facility] Svqodbwdcf067[address] [place], [place] [address]Dr. Ricardo Rocha Bilirubin [Mass/Vol] 0.3 mg/dL Normal 0.2-1.0 [facility] Comment on above: Performed By: #### C MP ####[facility] Tuubqzjmim45[address] [place], [place] [address]Dr. Ricardo Rocha Calcium [Mass/Vol] 8.2 mg/dL Critically low 8.5-10.1 Th [facility] Comment on above: Performed By: #### C MP ####[facility] Lnbddfpemv0048 [place] [address]Dr. Ricardo Aj Chloride [Moles/Vol] 104 mmol/L Normal 98-107 [facility] Comment on above: Performed By: #### C MP ####[facility] Qislctzghp5529 [place] [phone]. Ricardo Aj CO2 [Moles/Vol] 22.4 mmol/L Normal 21.0-32.0 [facility] Comment on above: Performed By: #### C MP ####[facility] Hgafsbxeub1501 [place] [address]Dr. Nanomarcial Aj Creatinine [Mass/Vol] 1.29 mg/dL Critically high 0.55-1.02 [facility] Comment on above: Performed By: #### C MP ####[facility] Mkycusicql[address] [place], [place] [address]Dr. Ricardo Rocha EGFR-AF BAHRAINI 50 mL/min/1.73m2 Critically low >=60 [facility] Comment on above: Performed By: #### C MP ####[facility] Kmllvtewmd60[address] [place], [place] [address]Dr. Nanomarcial Aj EGFR-NON AF BAHRAINI 42 mL/min/1.73m2 Critically low >=60 [facility] Comment on above: Performed By: #### C MP ####[facility] Fmlkiymbhs8756 [place] [address]Dr. Ricardo Rocha Globulin (S) [Mass/Vol] 4.8 g/dL Normal [facility] Comment on above: Performed By: #### C MP ####[facility] Wdwlmgljsv8198 [place] [address]Dr. Ricardo Rocha Glucose [Mass/Vol] 262 mg/dL Critically high 74-106 T [facility] Comment on above: Performed By: #### C MP ####[facility] Zafqxvhfwa9988 [place] [address]Dr. Ricardo Rocha Potassium [Moles/Vol] 3.2 mmol/L Critically low 3.5-5.1 [facility] Comment on above: Performed By: #### C MP ####[facility] Oycajwbmdg2759 [place] [address]Dr. Ricardo Rocha Protein [Mass/Vol] 6.5 g/dL Normal 6.4-8.2 [facility] Comment on above: Performed By: #### C MP ####[facility] Rrzrfceadz9137[address] [place], [place] [address]Dr. Ricardo Aj Sodium [Moles/Vol] 134 mmol/L Critically low 136-145 Th [facility] Comment on above: Performed By: #### C MP ####[facility] Vslhbxjwcg17[address] [place], [place] [address]Dr. Ricardo Aj Urea nitrogen [Mass/Vol] 20.0 mg/dL Critically high 7.0-18.0 [facility] Comment on above: Performed By: #### C MP ####[facility] Nlsflxjhxd4[address] [place], [place] [address]Dr. Ricardo Aj Urea nitrogen/Creatinine [Mass ratio] 15.5 mg/mg Normal [facility] Comment on above: Performed By: #### C MP ####[facility] Lqoxoevupk[address] [place], [place] [address]Dr. Ricardo Aj CBC AUTO DIFFon 06-15-2022 BASO # 0.1 103/ul Normal 0.0-0.1 [facility] Comment on above: Performed By: #### C BC ####[facility] Ipchwnedas[address] [place], [place] [address]Dr. Ricardo Rocha Basophils/100 WBC (Bld) 0.7 % Normal 0.2-2.0 [facility] Comment on above: Performed By: #### C BC ####[facility] [facility] [id number] [place], [place] [address]Dr. Ricardo Rocha EO # 0.1 103/ul Normal 0.0-0.7 [facility] Comment on above: Performed By: #### C BC ####[facility] Gsidzzkpki[address] [place], [place] [address]Dr. Ricadro Rocha Eosinophils/100 WBC (Bld) 0.7 % Critically low 0.9-7.0 [facility] Comment on above: Performed By: #### C BC ####[facility] Jdaikgbkwc[address] [place], [place] [address]Dr. Ricardo Aj Erythrocyte distribution width (RBC) [Ratio] 13.7 % Normal 11.0-15.0 [facility] Comment on above: Performed By: #### C BC ####[facility] Zkqbbjkdaa5[address] [place], [place] [address]Dr. Ricardo Aj Hematocrit (Bld) [Volume fraction] 26.7 % Critically low 36.0-48.0 [facility] Comment on above: Performed By: #### C BC ####[facility] Jjruubixbk84[address] [place], [place] [address]Dr. Ricardo Rocha Hemoglobin (Bld) [Mass/Vol] 8.4 g/dL Critically low 12.0-16.0 [facility] Comment on above: Performed By: #### C BC ####[facility] Tcymeirife24[address] [place], [place] [address]Dr. Ricardo Rocha IG # 0.83 10e3/ul Critically high 0.00-0.03 [facility] Comment on above: Performed By: #### C BC ####[facility] Gfrlyzbxjd[address] [place], [place] [address]Dr. Ricardo Rocha IG % 6.2 % Critically high 0.0-0.5 The [facility] Comment on above: Performed By: #### C BC ####[facility] Zjbfoitkte8[address] [place], [place] [address]DrIrina Rocha LYMPH # 1.3 103/ul Normal 1.2-3.8 [facility] Comment on above: Performed By: #### C BC ####[facility] Opreajhspq8215[address] [place], [place] [address]Dr. Ricardo Rocha Lymphocytes/100 WBC (Bld) 9.6 % Critically low 20.5-60.0 [facility] Comment on above: Performed By: #### C BC ####[facility] Wutuvinhsl[address] [place], [place] [address]Dr. Ricardo Rocha MANUAL DIFF REQ NO Normal [facility] Comment on above: Performed By: #### C BC ####[facility] T[address]edqqgr[address] [place] [address]Dr. Nanomarcial Aj MCH (RBC) [Entitic mass] 25.1 pg Critically low 26.7-34.0 [facility] Comment on above: Performed By: #### C BC ####[facility] Zpkmwccaig[address]99[address] [place], [place] [address]Dr. Nanomarcial Aj MCHC (RBC) [Mass/Vol] 31.5 g/dL Normal 29.9-35.2 [facility] Comment on above: Performed By: #### C BC ####[facility] Dhechyrldq8[address] [place], [place] [address]DrIrina Rocha MCV (RBC) [Entitic vol] 79.7 fL Critically low 81.0-99.0 [facility] Comment on above: Performed By: #### C BC ####[facility] Zbjxmltgcy76[address] [place], [place] [address]Dr. Ricardo Rocha MONO # 1.0 103/ul Critically high 0.3-0.8 The [facility] Comment on above: Performed By: #### C BC ####[facility] Fjsryyylic3103[address] [place], [place] [address]Dr. Ricardo Rocha Monocytes/100 WBC (Bld) 7.3 % Normal 1.7-12.0 [facility] Comment on above: Performed By: #### C BC ####[facility] Dnrdaaofpx6034[address] [place], [place] [address]DrIrina Rocha NEUT # 10.2 103/ul Critically high 1.4-6.5 The [facility] Comment on above: Performed By: #### C BC ####[facility] Nlgrhdbdev90[address] [place], [place] [address]DrIrina Rocha Neutrophils/100 WBC (Bld) 75.5 % Critically high 43.0-75.0 [facility] Comment on above: Performed By: #### C BC ####[facility] Edvsyctonh9420[address] [place], [place] [address]Dr. Ricardo Rocha Platelet mean volume (Bld) [Entitic vol] 11.8 fL Normal 9.5-13.5 [facility] Comment on above: Performed By: #### C BC ####[facility] Ahypvsbbkc340[address] [place] [address]Dr. Ricardo Rocha PLT 208 103/ul Normal 150-450 [facility] Comment on above: Performed By: #### C BC ####[facility] Ehivmajcnz[address] [place] [id number]. Ricardo Rocha RBC 3.35 106/ul Critically low 4.20-5.40 The [facility] Comment on above: Performed By: #### C BC ####[facility] Owhzydzmbw12[address] [place] [address]Dr. Ricardo Rocha WBC 13.5 103/ul Critically high 4.0-11.0 The [facility] Comment on above: Performed By: #### C BC ####[facility] Xiuwuoktay[address] [place] [address]Dr. Ricardo Rocha CULTURE BLOODon 06-15-2022 Microscopic examination of blood, culture Culture Observations: NO GROWTH AT 5 DAYS Normal [facility] Comment on above: Performed By: #### B LDCX2 ####[facility] Lxosqoeotc6[address] [place] [address]Dr. Ricardo Rocha Microscopic examination of blood, culture Culture Observations: NO GROWTH AT 5 DAYS Normal [facility] Comment on above: Performed By: #### B LDCX1 ####[facility] Hlerzzmiba[address] [place] [address]Dr. Ricardo Rocha Covid-19 PCR (CVDTBH)on 05-22 SARS-CoV-2 (COVID-19) RNA ADRIEL+probe Ql (Unsp spec) Not detected Normal NOT DETECTED [facility] Comment on above: Result Comment: [...] for this test is supported by the [place] of Health and Human Service's declaration that [...] be used). Performed By: #### C VDTBH ####[facility] Fgunzllvmp25[address] [place], [place] [address]Dr. Ricardo Rocha POINT OF CARE GLUCOSEon 05-22 Glucose [Mass/Vol] 366 mg/dL Critically high 74-106 [facility] Comment on above: Performed By: #### P OCGLUC ####[facility] Mywphzgnqz8029[address] [place], [place] [address]Dr. Ricardo Rocha Glucose [Mass/Vol] 229 mg/dL Critically high 74-106 [facility] Comment on above: Performed By: #### P OCGLUC ####[facility] Wgvdprevbk6306[address] [place], [place] [address]Dr. Ricardo Rocha Glucose [Mass/Vol] 258 mg/dL Critically high 74-106 [facility] Comment on above: Performed By: #### P OCGLUC ####[facility] Zyidacyoja87[address] [place], [place] [address]Dr. Ricardo Rocha PROF 14(COMP METB)on 022 Albumin [Mass/Vol] 1.8 g/dL Critically low 3.4-5.0 [facility] Comment on above: Performed By: #### C MP ####[facility] Dsxociuovw6407[address] [place], [place] [address]Dr. Ricardo Rocha Albumin/Globulin [Mass ratio] 0.4 {ratio} Normal [facility] Comment on above: Performed By: #### C MP ####[facility] Kqvjbytdtd01[address] [place], [place] [address]Dr. Ricardo Rocha ALP [Catalytic activity/Vol] 196 U/L Critically high 46-116 [facility] Comment on above: Performed By: #### C MP ####[facility] Yvmaxvsvma2188 [place] [address]Dr. Ricardo Rocha ALT [Catalytic activity/Vol] 18 U/L Normal 14-59 [facility] Comment on above: Performed By: #### C MP ####[facility] Zsffjyuctb[address] [place], [place] [address]Dr. Ricardo Rocha Anion gap [Moles/Vol] 16.3 mmol/L Normal [facility] Comment on above: Performed By: #### C MP ####[facility] Kergpoghlc[address] [place], [place] [address]Dr. Ricardo Rocha AST [Catalytic activity/Vol] 22 U/L Normal 15-37 [facility] Comment on above: Performed By: #### C MP ####[facility] Kxpvstfqeo[address] [place], [place] [address]Dr. Ricardo Rocha Bilirubin [Mass/Vol] 0.4 mg/dL Normal 0.2-1.0 [facility] Comment on above: Performed By: #### C MP ####[facility] Ttltkxseca34[address] [place], [place] [address]Dr. Ricardo Rocha Calcium [Mass/Vol] 8.2 mg/dL Critically low 8.5-10.1 [facility] Comment on above: Performed By: #### C MP ####[facility] Otpuqapwnz[address] [place], [place] [address]Dr. Ricardo Rocha Chloride [Moles/Vol] 103 mmol/L Normal 98-107 [facility] Comment on above: Performed By: #### C MP ####[facility] Zvtvhiuckn9317[address] [place], [place] [address]Dr. Ricardo Aj CO2 [Moles/Vol] 19.0 mmol/L Critically low 21.0-32.0 [facility] Comment on above: Performed By: #### C MP ####[facility] Qgckkdwutw8204[address] [place], [place] [address]Dr. Ricardo Aj Creatinine [Mass/Vol] 1.32 mg/dL Critically high 0.55-1.02 [facility] Comment on above: Performed By: #### C MP ####[facility] Tafkitnlgg[address] [place] [address]Dr. Ricardo Rocha EGFR-AF BAHRAINI 49 mL/min/1.73m2 Critically low >=60 [facility] Comment on above: Performed By: #### C MP ####[facility] Fbtsxtdxmc46[address] [place] [address]Dr. Ricardo Rocha EGFR-NON AF BAHRAINI 41 mL/min/1.73m2 Critically low >=60 [facility] Comment on above: Performed By: #### C MP ####[facility] Eydurzbatn67[address] [place] [address]Dr. Ricardo Rocha Globulin (S) [Mass/Vol] 5.0 g/dL Normal [facility] Comment on above: Performed By: #### C MP ####[facility] Rxgtmgcmko2156 [place] [address]Dr. Ricardo Rocha Glucose [Mass/Vol] 228 mg/dL Critically high 74-106 T [facility] Comment on above: Performed By: #### C MP ####[facility] Xvgpbolxpc9567[address] [place], [place] [address]Dr. Ricardo Rocha Potassium [Moles/Vol] 3.3 mmol/L Critically low 3.5-5.1 [facility] Comment on above: Performed By: #### C MP ####[facility] Qrqqzqhmle9[address] [place] [address]Dr. Ricardo Rocha Protein [Mass/Vol] 6.8 g/dL Normal 6.4-8.2 [facility] Comment on above: Performed By: #### C MP ####[facility] Qyghepntne6352 [place] [address]Dr. Ricardo Rocha Sodium [Moles/Vol] 135 mmol/L Critically low 136-145 Th [facility] Comment on above: Performed By: #### C MP ####[facility] Nsnmxvhhyv6856 [place] [address]Dr. Ricardo Rocha Urea nitrogen [Mass/Vol] 23.0 mg/dL Critically high 7.0-18.0 [facility] Comment on above: Performed By: #### C MP ####[facility] Tofklxduwo9936[address] [place], [place] [address]Dr. Ricardo Rocha Urea nitrogen/Creatinine [Mass ratio] 17.4 mg/mg Normal [facility] Comment on above: Performed By: #### C MP ####[facility] Jnqfnlhpst00[address] [place], [place] [address]Dr. 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 Ricardo Rocha Clarity (U) CLEAR Normal CLEAR [facility] Comment on above: Performed By: #### U MICRO, UACSIND ####[facility] Ijaxnhmryk7123[address] [place], [place] [address]Dr. Ricardo Rocha Color (U) LT. YELLOW Normal YELLOW [facility] Comment on above: Performed By: #### U MICRO, UACSIND ####[facility] Ofuxmddjgr0375[address] [place], [place] [address]Dr. Ricardo Rocha Glucose Ql (U) 250 mg/dl Abnormal NEGATIVE The [facility] Comment on above: Performed By: #### U MICRO, UACSIND ####[facility] Nztzafdwyx9[address] [place], [place] [address]Dr. Ricardo Rocha Hemoglobin Ql (U) TRACE-LYSED Abnormal NEGATIVE The [facility] Comment on above: Performed By: #### U MICRO, UACSIND ####[facility] Lobnqhvzwf68[address] [place], [place] [address]Dr. Ricardo Rocha Ketones Ql (U) 15 mg/dl Abnormal NEGATIVE [facility] Comment on above: Performed By: #### U MICRO, UACSIND ####[facility] Vlfaceugqj6935[address] [place], [place] [address]Dr. Ricardo Rocha LEUKOCYTES Negative Normal NEGATIVE [facility] Comment on above: Performed By: #### U MICRO, UACSIND ####[facility] Uexvsopytf9957 [place] [address]Dr. Ricardo Rocha Nitrite Ql (U) Negative Normal NEGATIVE [facility] Comment on above: Performed By: #### U MICRO, UACSIND ####[facility] Agpoqbsqiz5705 [place] [address]Dr. Nanomarcial Rocha pH (U) 6.0 [pH] Normal 5-9 [facility] Comment on above: Performed By: #### U MICRO, UACSIND ####[facility] Bunaxfkrga36[address] [place] [address]Dr. Nanomarcial Rocha SPEC GRAVITY 1.010 Normal 1.005-<=1.02 5 [facility] Comment on above: Performed By: #### U MICRO, UACSIND ####[facility] Eobxwnpfro9968[address] [place], [place] [address]Dr. Ricardo Rocha UA PROTEIN Negative Normal NEGATIVE/ TRACE [facility] Comment on above: Performed By: #### U MICRO, UACSIND ####[facility] Ajfphisggw9906[address] [place], [place] [address]Dr. Nanomarcial Rocha UR MICRO IND INDICATED Normal [facility] Comment on above: Performed By: #### U MICRO, UACSIND ####[facility] Rmvqgxsxgm2567[address] [place], [place] [address]Dr. Nanomarcial Rocha Urobilinogen Qn (U) 0.2 {Madeleine'U}/dL Normal 0.2 - 1. 0 [facility] Comment on above: Performed By: #### U MICRO, UACSIND ####[facility] Bwguajbcpe3[address] [place], [place] [address]Dr. Nanomarcial Rocha URINE MICROSCOPIC ONLYon BACTERIA NONE SEEN Normal NONE SEEN [facility] Comment on above: Performed By: #### U MICRO, UACSIND ####[facility] Exkjthsuhi[address] [place], [place] [address]Dr. Ricardo Rocha Bacteria identified Cx Nom (U) NOT INDICATED Normal [facility] Comment on above: Performed By: #### U MICRO, UACSIND ####[facility] Alclnvgmma6[address] [place] [address]Dr. Ricardo Rocha CAST NONE SEEN Normal NONE SEEN [facility] Comment on above: Performed By: #### U MICRO, UACSIND ####[facility] Jxgrhmzjmu4851 [place] [address]Dr. Ricardo Rocha Crystals LM Nom (Urine sed) NONE SEEN Normal NONE SEEN [facility] Comment on above: Performed By: #### U MICRO, UACSIND ####[facility] Uttddvxlwi2361 [place] [address]Dr. Ricardo Rocha Epithelial cells LM Ql (Urine sed) FEW Abnormal NONE SEEN /RARE [facility] Comment on above: Performed By: #### U MICRO, UACSIND ####[facility] Ahpebdumty[address] [place] [address]Dr. Nanomarcial Rocha MUCOUS NONE SEEN Normal NONE SEEN [facility] Comment on above: Performed By: #### U MICRO, UACSIND ####[facility] Dgwgqmtguz6834 [place] [address]Dr. Ricardo Rocha RBC 2-5 Abnormal 0-2 [facility] Comment on above: Performed By: #### U MICRO, UACSIND ####[facility] Mpocjtpwww8[address] [place], [place] [address]Dr. Ricardo Rocha WBC 2-5 Abnormal NONE SEEN [facility] Comment on above: Performed By: #### U MICRO, UACSIND ####[facility] Dhvgmpjiel5109[address] [place], [place] [address]Dr. Ricardo Rocha YEAST PRESENT Abnormal NONE SEEN [facility] Comment on above: Performed By: #### U MICRO, UACSIND ####[facility] Zvzmenyyra2620 [place] [address]Dr. Ricardo Rocha CBC AUTO DIFFon 06-14-2022 BASO # 0.0 103/ul Normal 0.0-0.1 [facility] Comment on above: Performed By: #### C BC ####[facility] Rhslzlocgd9276[address] [place], [place] [address]Dr. Ricardo Rocha Basophils/100 WBC (Bld) 0.4 % Normal 0.2-2.0 [facility] Comment on above: Performed By: #### C BC ####[facility] Oilazspkcc[address]40[address] [place], [place] [address]DrIrina Rocha EO # 0.0 103/ul Normal 0.0-0.7 [facility] Comment on above: Performed By: #### C BC ####[facility] Wkbwyndihu4996[address] [place], [place] [address]DrIrina Rocha Eosinophils/100 WBC (Bld) 0.4 % Critically low 0.9-7.0 [facility] Comment on above: Performed By: #### C BC ####[facility] Zursjnhjzd[address] [place], [place] [address]DrIrina Rocha Erythrocyte distribution width (RBC) [Ratio] 13.8 % Normal 11.0-15.0 [facility] Comment on above: Performed By: #### C BC ####[facility] Cugsorbztc[address] [place], [place] [address]DrIrina Rocha Hematocrit (Bld) [Volume fraction] 26.2 % Critically low 36.0-48.0 [facility] Comment on above: Performed By: #### C BC ####[facility] Eveultcncy[address] [place], [place] [address]DrIrina Rocha Hemoglobin (Bld) [Mass/Vol] 8.3 g/dL Critically low 12.0-16.0 [facility] Comment on above: Performed By: #### C BC ####[facility] Enlqxleaed5667[address] [place], [place] [address]DrIrina Rocha IG # 0.24 10e3/ul Critically high 0.00-0.03 [facility] Comment on above: Performed By: #### C BC ####[facility] Xrrvxzegkt8064[address] [place], [place] [address]DrIrina Rocha IG % 2.3 % Critically high 0.0-0.5 [facility] Comment on above: Performed By: #### C BC ####[facility] Pqwszsnlom0975[address] [place], [place] [address]DrIrina Rocha LYMPH # 1.1 103/ul Critically low 1.2-3.8 [facility] Comment on above: Performed By: #### C BC ####[facility] Zettihlbwh5123 [place] [address]DrIrina Rocha Lymphocytes/100 WBC (Bld) 10.2 % Critically low 20.5-60.0 [facility] Comment on above: Performed By: #### C BC ####[facility] Ryjmtitooz1167 [place] [address]DrIrina Rocha MANUAL DIFF REQ NO Normal [facility] Comment on above: Performed By: #### C BC ####[facility] Gufujtlyxv3885 [place] [address]DrIrina Rocha MCH (RBC) [Entitic mass] 25.5 pg Critically low 26.7-34.0 [facility] Comment on above: Performed By: #### C BC ####[facility] Fgbpgdnigw7514[address] [place], [place] [address]DrIrina Rocha MCHC (RBC) [Mass/Vol] 31.7 g/dL Normal 29.9-35.2 [facility] Comment on above: Performed By: #### C BC ####[facility] Whneshfotb6306[address] [place], [place] [address]DrIrina Rocha MCV (RBC) [Entitic vol] 80.6 fL Critically low 81.0-99.0 [facility] Comment on above: Performed By: #### C BC ####[facility] Eawcfmgxaa477[address] [place], [place] [address]DrIrina Rocha MONO # 0.7 103/ul Normal 0.3-0.8 [facility] Comment on above: Performed By: #### C BC ####[facility] Ktkaoyuong8985[address] [place], [place] [address]DrIrina Rocha Monocytes/100 WBC (Bld) 6.7 % Normal 1.7-12.0 [facility] Comment on above: Performed By: #### C BC ####[facility] Gvavkskwlb3228[address] [place], [place] [address]DrIrina Rocha NEUT # 8.5 103/ul Critically high 1.4-6.5 The [facility] Comment on above: Performed By: #### C BC ####[facility] Qetoxmiggz9902 [place] [address]Dr. Ricardo Rocha Neutrophils/100 WBC (Bld) 80.0 % Critically high 43.0-75.0 [facility] Comment on above: Performed By: #### C BC ####[facility] Fybmdzsilj3633 [place] [address]Dr. Ricardo Rocha Platelet mean volume (Bld) [Entitic vol] 12.1 fL Normal 9.5-13.5 [facility] Comment on above: Performed By: #### C BC ####[facility] Acynyjuith2853 [place] [address]Dr. Ricardo Rocha PLT 173 103/ul Normal 150-450 [facility] Comment on above: Performed By: #### C BC ####[facility] Agftcxrqgx084[address] [place], [place] [address]Dr. Ricardo Rocha RBC 3.25 106/ul Critically low 4.20-5.40 The [facility] Comment on above: Performed By: #### C BC ####[facility] Kpqmramavy7[address] [place], [place] [address]Dr. Ricardo Rocha WBC 10.6 103/ul Normal 4.0-11.0 [facility] Comment on above: Performed By: #### C BC ####[facility] Gtpfacshul92[address] [place], [place] [address]Dr. Ricardo Rocha POINT OF CARE GLUCOSEon 2 Glucose [Mass/Vol] 237 mg/dL Critically high 74-106 [facility] Comment on above: Performed By: #### P OCGLUC ####[facility] Fciihxdbou8220[address] [place], [place] [address]Dr. Ricardo Rocha Glucose [Mass/Vol] 296 mg/dL Critically high 74-106 [facility] Comment on above: Performed By: #### P OCGLUC ####[facility] Uxcgeiujmx5425[address] [place], [place] [address]Dr. Ricardo Rocha Glucose [Mass/Vol] 406 mg/dL Critically high 74-106 [facility] Comment on above: Performed By: #### P OCGLUC ####[facility] Xgwyeodtvo9753 [place] [address]Dr. Ricardo Rocha Glucose [Mass/Vol] 447 mg/dL Critically high 74-106 [facility] Comment on above: Performed By: #### P OCGLUC ####[facility] Ewjioyiknp2768 [place] [address]Dr. Ricardo Rocha Glucose [Mass/Vol] 319 mg/dL Critically high 74-106 [facility] Comment on above: Performed By: #### P OCGLUC ####[facility] Rufcmlbfuc8413 [place] [address]Dr. Ricardo Aj PROF 14(COMP METB)on 06-14- 022 Albumin [Mass/Vol] 1.6 g/dL Critically low 3.4-5.0 [facility] Comment on above: Performed By: #### C MP ####[facility] Bcrpysjrqy47[address] [place], [place] [address]Dr. Ricardo Aj Albumin/Globulin [Mass ratio] 0.3 {ratio} Normal [facility] Comment on above: Performed By: #### C MP ####[facility] Flmdlgffah7052 [place] [address]Dr. Ricardo Aj ALP [Catalytic activity/Vol] 201 U/L Critically high 46-116 [facility] Comment on above: Performed By: #### C MP ####[facility] Grdokzfhpb5636 [place] [address]Dr. Ricardo jA ALT [Catalytic activity/Vol] 23 U/L Normal 14-59 [facility] Comment on above: Performed By: #### C MP ####[facility] Rnvosxqzjx8468 [place] [address]Dr. Ricardo Aj Anion gap [Moles/Vol] 16.0 mmol/L Normal [facility] Comment on above: Performed By: #### C MP ####[facility] Ifaaywxwou16[address] [place], [place] [address]Dr. Ricardo Rocha AST [Catalytic activity/Vol] 21 U/L Normal 15-37 [facility] Comment on above: Performed By: #### C MP ####[facility] Mlkxwgkqog32[address] [place] [address]Dr. Ricardo Rocha Bilirubin [Mass/Vol] 0.4 mg/dL Normal 0.2-1.0 [facility] Comment on above: Performed By: #### C MP ####[facility] Efuceqkpag[address] [place], [place] [address]Dr. Ricardo Rocha Calcium [Mass/Vol] 7.6 mg/dL Critically low 8.5-10.1 Th [facility] Comment on above: Performed By: #### C MP ####[facility] Tdlyccumci[address] [place], [place] [address]Dr. Ricardo Rocha Chloride [Moles/Vol] 105 mmol/L Normal 98-107 [facility] Comment on above: Performed By: #### C MP ####[facility] Slhqqwyhnt[address] [place], [place] [address]Dr. Ricardo Rocha CO2 [Moles/Vol] 17.3 mmol/L Critically low 21.0-32.0 [facility] Comment on above: Performed By: #### C MP ####[facility] Ovvvpxbgbe2564[address] [place], [place] [address]Dr. Ricardo Rocha Creatinine [Mass/Vol] 1.54 mg/dL Critically high 0.55-1.02 [facility] Comment on above: Performed By: #### C MP ####[facility] Eszrjykwgv6[address] [place], [place] [address]Dr. Ricardo Rocha EGFR-AF BAHRAINI 41 mL/min/1.73m2 Critically low >=60 [facility] Comment on above: Performed By: #### C MP ####[facility] Odilygfgjr94[address] [place], [place] [address]Dr. Ricardo Rocha EGFR-NON AF BAHRAINI 34 mL/min/1.73m2 Critically low >=60 [facility] Comment on above: Performed By: #### C MP ####[facility] Niyuhkbgbl6[address] [place], [place] [address]Dr. Ricardo Rocha Globulin (S) [Mass/Vol] 4.7 g/dL Normal [facility] Comment on above: Performed By: #### C MP ####[facility] Wyuwdrobly8656 [place] [address]Dr. Ricardo Rocha Glucose [Mass/Vol] 277 mg/dL Critically high 74-106 T [facility] Comment on above: Performed By: #### C MP ####[facility] Attfalljsp75[address] [place] [address]Dr. Ricardo Rocha Potassium [Moles/Vol] 3.3 mmol/L Critically low 3.5-5.1 [facility] Comment on above: Performed By: #### C MP ####[facility] Vdknqnqrpv9690 [place] [address]Dr. Ricardo Rocha Protein [Mass/Vol] 6.3 g/dL Critically low 6.4-8.2 Th [facility] Comment on above: Performed By: #### C MP ####[facility] Dtukqhimqw26[address] [place], [place] [address]Dr. Ricardo Rocha Sodium [Moles/Vol] 135 mmol/L Critically low 136-145 Th [facility] Comment on above: Performed By: #### C MP ####[facility] Xcxawuwxkc64[address] [place], [place] [address]Dr. Ricardo Rocha Urea nitrogen [Mass/Vol] 29.0 mg/dL Critically high 7.0-18.0 [facility] Comment on above: Performed By: #### C MP ####[facility] Uocwulvgsb5063 [place] [address]Dr. Ricardo Rocha Urea nitrogen/Creatinine [Mass ratio] 18.8 mg/mg Normal [facility] Comment on above: Performed By: #### C MP ####[facility] Dzgoionudw26[address] [place], [place] [address]Dr. Ricardo Rocha CBC AUTO DIFFon 06-13-2022 BASO # 0.0 103/ul Normal 0.0-0.1 [facility] Comment on above: Performed By: #### C BC ####[facility] Byoxvbqtet9117 [place] [id number]. Ricardo Rocha Basophils/100 WBC (Bld) 0.2 % Normal 0.2-2.0 [facility] Comment on above: Performed By: #### C BC ####[facility] Bghmjpbiuc4456 [place] [phone]. Ricardo Rocha EO # 0.1 103/ul Normal 0.0-0.7 [facility] Comment on above: Performed By: #### C BC ####[facility] Jpyncwpoxw5082 [place] [phone]. Ricardo Rocha Eosinophils/100 WBC (Bld) 0.6 % Critically low 0.9-7.0 [facility] Comment on above: Performed By: #### C BC ####[facility] Tdqknastmp37[address] [place], [place] [address]Dr. Ricardo Rocha Erythrocyte distribution width (RBC) [Ratio] 14.2 % Normal 11.0-15.0 [facility] Comment on above: Performed By: #### C BC ####[facility] Xuyxganphd5306 [place] [phone]. Ricardo Rocha Hematocrit (Bld) [Volume fraction] 27.9 % Critically low 36.0-48.0 [facility] Comment on above: Performed By: #### C BC ####[facility] Fdqroujuwu1771 [place] [phone]. Ricardo Rocha Hemoglobin (Bld) [Mass/Vol] 8.6 g/dL Critically low 12.0-16.0 [facility] Comment on above: Performed By: #### C BC ####[facility] Nyilqnlwhs1676 [place] [phone]. Ricardo Rocha IG # 0.08 10e3/ul Critically high 0.00-0.03 [facility] Comment on above: Performed By: #### C BC ####[facility] Rucnggzoxz[address] [place], [place] [address]Dr. Ricardo Rocha IG % 0.8 % Critically high 0.0-0.5 The [facility] Comment on above: Performed By: #### C BC ####[facility] Fkfwtdqgzb0659 [place] [phone]. Ricardo Aj LYMPH # 0.9 103/ul Critically low 1.2-3.8 [facility] Comment on above: Performed By: #### C BC ####[facility] Oghjtcyohl3326 [place] [phone]. Nanomarcial Rocha Lymphocytes/100 WBC (Bld) 8.9 % Critically low 20.5-60.0 [facility] Comment on above: Performed By: #### C BC ####[facility] Dfvqmmdymf3084 [place] [phone]. Ricardo Rocha MANUAL DIFF REQ NO Normal [facility] Comment on above: Performed By: #### C BC ####[facility] Gxtgtckyow2987 [place] [phone]. Ricardo Rocha MCH (RBC) [Entitic mass] 25.1 pg Critically low 26.7-34.0 [facility] Comment on above: Performed By: #### C BC ####[facility] Uxuwvrzihh2606 [place] [phone]. Ricardo Aj MCHC (RBC) [Mass/Vol] 30.8 g/dL Normal 29.9-35.2 [facility] Comment on above: Performed By: #### C BC ####[facility] Ogakcubili7372 [place] [phone]. Ricardo Rocha MCV (RBC) [Entitic vol] 81.6 fL Normal 81.0-99.0 [facility] Comment on above: Performed By: #### C BC ####[facility] Iamauydmsy5609 [place] [phone]. Ricardo Rocha MONO # 0.6 103/ul Normal 0.3-0.8 [facility] Comment on above: Performed By: #### C BC ####[facility] Qdokvscvvd3330 [place] [phone]. Ricardo Rocha Monocytes/100 WBC (Bld) 5.7 % Normal 1.7-12.0 [facility] Comment on above: Performed By: #### C BC ####[facility] Sqqswmxvnq5605 [place] [phone]. Ricardo Rocha NEUT # 8.4 103/ul Critically high 1.4-6.5 [facility] Comment on above: Performed By: #### C BC ####[facility] Ldssdtleen5046 [place] [phone]. Ricardo Rocha Neutrophils/100 WBC (Bld) 83.8 % Critically high 43.0-75.0 [facility] Comment on above: Performed By: #### C BC ####[facility] Smazhdadqi4975 [place] [address]Dr. Ricardo Rocha Platelet mean volume (Bld) [Entitic vol] 12.1 fL Normal 9.5-13.5 [facility] Comment on above: Performed By: #### C BC ####[facility] Hcmrecfycc3518 [place] [address]Dr. Ricardo Rocha PLT 149 103/ul Critically low 150-450 [facility] Comment on above: Performed By: #### C BC ####[facility] Ifxifmkzcg2615 [place] [phone]. Ricardo Rocha RBC 3.42 106/ul Critically low 4.20-5.40 [facility] Comment on above: Performed By: #### C BC ####[facility] Uqbjueiagb4180 [place] [address]Dr. Ricardo Rocha WBC 10.0 103/ul Normal 4.0-11.0 [facility] Comment on above: Performed By: #### C BC ####[facility] Toxfazdaaz3698 [place] [phone]. Ricardo Rocha CULTURE OTHERon 06-13-2022 CULTURE OTHER Normal [facility] Comment on above: Performed By: #### O THCX ####[facility] Mxiipqogsg6489 [place] [address]Dr. Ricardo Rocha CULTURE OTHER Normal [facility] Comment on above: Performed By: #### O THCX ####[facility] Duvfozyaax09[address] [place], [place] [address]Dr. Ricardo Rocha CULTURE OTHER Normal [facility] Comment on above: Performed By: #### O THCX ####[facility] Mlpubuesbw5287[address] [place], [place] [address]Dr. Ricardo Rocha GI PANEL (PCR)on 06-13-2022 Adenovirus F 40/41 Not detected Normal NOT DETECTED [facility] Comment on above: Performed By: #### G IPANEL ####[facility] Goxzaiaayh[address] [place], [place] [address]Dr. Ricardo Rocha Astrovirus Not detected Normal NOT DETECTED The [facility] Comment on above: Performed By: #### G IPANEL ####[facility] Rlzaemipds[address] [place], [place] [address]Dr. Ricardo Rocha C. Diff toxin A/B Not detected Normal NOT DETECTED [facility] Comment on above: Performed By: #### G IPANEL ####[facility] Cngblzoacf4142[address] [place], [place] [address]Dr. Ricardo Rocha Campylobacter Not detected Normal NOT DETECTED [facility] Comment on above: Performed By: #### G IPANEL ####[facility] Zsdzojwylr7523[address] [place], [place] [address]Dr. Ricardo Rocha Cryptosporidium Not detected Normal NOT DETECTED The [facility] Comment on above: Performed By: #### G IPANEL ####[facility] Pejemyejct6593[address] [place], [place] [address]Dr. Ricardo Rocha Cyclos. Cayetanensis Not detected Normal NOT DETECTED [facility] Comment on above: Performed By: #### G IPANEL ####[facility] Vfvlyquftn5086[address] [place], [place] [address]Dr. Ricardo Rocha E. Coli O157 Not Applicable Normal Not Applicable [facility] Comment on above: Performed By: #### G IPANEL ####[facility] Flegfxpmnb3875[address] [place], [place] [address]Dr. Ricardo Rocha E. histolytica Not detected Normal NOT DETECTED The [facility] Comment on above: Performed By: #### G IPANEL ####[facility] Wnikqyfkpw7375[address] [place], [place] [address]Dr. Ricardo Rocha EAEC Not detected Normal NOT DETECTED The [facility] Comment on above: Performed By: #### G IPANEL ####[facility] Bzznrxlmjv9211[address] [place], [place] [address]Dr. Ricardo Rocha EIEC Not detected Normal NOT DETECTED [facility] Comment on above: Performed By: #### G IPANEL ####[facility] Qoqagugyxp342[address] [place], [place] [address]Dr. Ricardo Rocha EPEC Not detected Normal NOT DETECTED [facility] Comment on above: Performed By: #### G IPANEL ####[facility] Qotqjaqwdp9410[address] [place], [place] [address]Dr. Ricardo Rocha ETEC Not detected Normal NOT DETECTED [facility] Comment on above: Performed By: #### G IPANEL ####[facility] Krannlggwg0657[address] [place], [place] [address]Dr. Nanomarcial Rocha G. Lamblia Not detected Normal NOT DETECTED [facility] Comment on above: Performed By: #### G IPANEL ####[facility] Ufgwmgsazn477[address] [place], [place] [address]Dr. Nanomarcial Rocha GIPHAV[facility] CENTERL CONTROLS PASSED Normal The [facility] Comment on above: Performed By: #### G IPANEL ####[facility] Lbamsbteuc8069[address] [place], [place] [address]Dr. Ricardo Rocha [facility] MONIQUE HEADER GI PANEL BACTERIA Normal T [facility] Comment on above: Performed By: #### G IPANEL ####[facility] Xegouoirmr[address] [place], [place] [address]Dr. Ricardo Rocha [facility] ECOLI GI PANEL DIARRHEAGEN IC E.COLI / SHIGELLA Normal [facility] Comment on above: Performed By: #### G IPANEL ####[facility] Kmuegdgbrf55[address] [place], [place] [address]Dr. Ricardo Rocha GIPNLHD INFO SEE BELOW Normal [facility] Comment on above: Result Comment: EAEC - Enteroaggregative E. Coli EPEC- Enteropathogenic E. Coli ETEC- Enterotoxigenic E. Coli lt/st STEC- Shigella-like toxin-producing E. Coli stx1/stx2 EIEC- Shigella/Enteroinvasive E. Coli Performed By: #### G IPANEL ####[facility] Tbccynyytw5[address] [place], [place] [address]Dr. Ricardo Rocha GIPNLHD PARASITES GI PANEL PARASITES Normal [facility] Comment on above: Performed By: #### G IPANEL ####[facility] Dndqybvvlm9935[address] [place], [place] [address]Dr. Ricardo Rocha GIPNLHD VIRUS GI PANEL VIRUSES Normal The [facility] Comment on above: Performed By: #### G IPANEL ####[facility] Qlyhlqjyjt0590[address] [place], [place] [address]Dr. Ricardo Rocha Norovirus GI/GII Not detected Normal NOT DETECTED [facility] Comment on above: Performed By: #### G IPANEL ####[facility] Vcjxyhossi9923[address] [place], [place] [address]Dr. Nanoamrcial Rocha P. Shigelloides Not detected Normal NOT DETECTED The [facility] Comment on above: Performed By: #### G IPANEL ####[facility] Mtqmwqqolw6667[address] [place], [place] [address]Dr. Ricardo Rocha Rotavirus A Not detected Normal NOT DETECTED The [facility] Comment on above: Performed By: #### G IPANEL ####[facility] Rfwdfdlyoc[address] [place], [place] [address]Dr. Ricardo Rocha Salmonella Not detected Normal NOT DETECTED [facility] Comment on above: Performed By: #### G IPANEL ####[facility] Tofreiavao7[address] [place], [place] [address]Dr. Ricardo Rocha Sapovirus Not detected Normal NOT DETECTED [facility] Comment on above: Performed By: #### G IPANEL ####[facility] Usowfiahnq3034[address] [place], [place] [address]Dr. Nanomarcial Rocha STEC Not detected Normal NOT DETECTED [facility] Comment on above: Performed By: #### G IPANEL ####[facility] Srdeeehvwh2727[address] [place], [place] [address]Dr. Ricardo Rocha Vibrio Not detected Normal NOT DETECTED [facility] Comment on above: Performed By: #### G IPANEL ####[facility] Ctbjezylxg9533 [place] [address]Dr. Ricardo Rocha Vibrio Cholera Not detected Normal NOT DETECTED The [facility] Comment on above: Performed By: #### G IPANEL ####[facility] Ppfrdaurcn7269 [place] [phone]. Ricardo Rocha Y. Enterocolitica Not detected Normal NOT DETECTED [facility] Comment on above: Performed By: #### G IPANEL ####[facility] Guasbcaqwv7390 [place] [address]Dr. Ricardo Rocha IRON AND TIBCon 06-13-2022 % SATURATION 19.9 % Normal [facility] Comment on above: Performed By: #### F ETIBC, B12FOL ####[facility] Ywhuyrghof3528 [place] [address]Dr. Ricardo Rocha Iron [Mass/Vol] 75.0 ug/dL Normal 50.0-170.0 [facility] Comment on above: Performed By: #### F ETIBC, B12FOL ####[facility] Bvflyviovm0795 [place] [address]Dr. Ricardo Rocha TIBC DIRECT 376.0 ug/dL Normal 250.0-450.0 [facility] Comment on above: Performed By: #### F ETIBC, B12FOL ####[facility] Cishczqsue6564 [place] [address]Dr. Ricardo Rocha POINT OF CARE GLUCOSEon 05-22 Glucose [Mass/Vol] 238 mg/dL Critically high 74-106 [facility] Comment on above: Performed By: #### P OCGLUC ####[facility] Rghztafojm7569 [place] [address]Dr. Ricardo Rocha Glucose [Mass/Vol] 146 mg/dL Critically high -106 [facility] Comment on above: Performed By: #### P OCGLUC ####[facility] Ctflaqxfwe0009 [place] [address]Dr. Ricardo Rocha Glucose [Mass/Vol] 143 mg/dL Critically high -106 [facility] Comment on above: Performed By: #### P OCGLUC ####[facility] Bgvfxhmjky2344 [place] [phone]. Ricardo Rocha Glucose [Mass/Vol] 205 mg/dL Critically high 74-106 [facility] Comment on above: Performed By: #### P OCGLUC ####[facility] Rqostqrkci5514 [place] [phone]. Ricardo Rocha Glucose [Mass/Vol] 227 mg/dL Critically high 74-106 [facility] Comment on above: Performed By: #### P OCGLUC ####[facility] Cjubqyklis4837 [place] [address]Dr. Ricardo Rocha PROF 14(COMP METB)on 022 Albumin [Mass/Vol] 1.5 g/dL Critically low 3.4-5.0 [facility] Comment on above: Performed By: #### C MP ####[facility] Mncyqdqzdq8914[address] [place], [place] [address]Dr. Ricardo Rocha Albumin/Globulin [Mass ratio] 0.3 {ratio} Normal [facility] Comment on above: Performed By: #### C MP ####[facility] Enfpqwbqkb7153[address] [place], [place] [address]Dr. Ricardo Rocha ALP [Catalytic activity/Vol] 136 U/L Critically high 46-116 [facility] Comment on above: Performed By: #### C MP ####[facility] Dbcfrwaunb3765 [place] [address]Dr. Ricardo Rocha ALT [Catalytic activity/Vol] 18 U/L Normal 14-59 [facility] Comment on above: Performed By: #### C MP ####[facility] Vzcflmynuj1408 [place] [address]Dr. Ricardo Rocha Anion gap [Moles/Vol] 10.2 mmol/L Normal [facility] Comment on above: Performed By: #### C MP ####[facility] Gvyyenverv5452 [place] [address]Dr. Ricardo Rocha AST [Catalytic activity/Vol] 37 U/L Normal 15-37 [facility] Comment on above: Performed By: #### C MP ####[facility] Tbqtavpqed0453 [place] [id number]. Ricardo Rocha Bilirubin [Mass/Vol] 0.4 mg/dL Normal 0.2-1.0 [facility] Comment on above: Performed By: #### C MP ####[facility] Lcwdmnrrcz1407 [place] [phone]. Ricardo Rocha Calcium [Mass/Vol] 8.0 mg/dL Critically low 8.5-10.1 Th [facility] Comment on above: Performed By: #### C MP ####[facility] Rhayjanggv0787 [place] [phone]. Ricardo Aj Chloride [Moles/Vol] 110 mmol/L Critically high 98-107 [facility] Comment on above: Performed By: #### C MP ####[facility] Gvbpvxadhj8925[address] [place], [place] [address]Dr. Ricardo Aj CO2 [Moles/Vol] 18.2 mmol/L Critically low 21.0-32.0 [facility] Comment on above: Performed By: #### C MP ####[facility] Qymrqbbdsy[address] [place], [place] [address]Dr. Ricardo Aj Creatinine [Mass/Vol] 1.76 mg/dL Critically high 0.55-1.02 [facility] Comment on above: Performed By: #### C MP ####[facility] Azwaqihfaq7473 [place] [phone]. Ricardo Aj EGFR-AF BAHRAINI 35 mL/min/1.73m2 Critically low >=60 [facility] Comment on above: Performed By: #### C MP ####[facility] Glzqiqtzri0101 [place] [phone]. Ricardo Aj EGFR-NON AF BAHRAINI 29 mL/min/1.73m2 Critically low >=60 [facility] Comment on above: Performed By: #### C MP ####[facility] Rgzafncebz5015 [place] [phone]. Ricardo Aj Globulin (S) [Mass/Vol] 4.7 g/dL Normal [facility] Comment on above: Performed By: #### C MP ####[facility] Rczwnlglon1060 [place] [address]Dr. Ricardo Rocha Glucose [Mass/Vol] 223 mg/dL Critically high 74-106 T [facility] Comment on above: Performed By: #### C MP ####[facility] Zudhmxwesz8821 [place] [address]Dr. Ricardo Rocha Potassium [Moles/Vol] 3.4 mmol/L Critically low 3.5-5.1 [facility] Comment on above: Performed By: #### C MP ####[facility] Oosmupdkij0375[address] [place], [place] [address]Dr. Ricardo Rocha Protein [Mass/Vol] 6.2 g/dL Critically low 6.4-8.2 Th [facility] Comment on above: Performed By: #### C MP ####[facility] Exozrfhsus7104[address] [place], [place] [address]Dr. Ricardo Rocha Sodium [Moles/Vol] 135 mmol/L Critically low 136-145 Th [facility] Comment on above: Performed By: #### C MP ####[facility] Nauskbjktn6417[address] [place], [place] [address]Dr. Ricardo Aj Urea nitrogen [Mass/Vol] 33.0 mg/dL Critically high 7.0-18.0 [facility] Comment on above: Performed By: #### C MP ####[facility] Jokmcbxmlj023[address] [place], [place] [address]Dr. Ricardo Aj Urea nitrogen/Creatinine [Mass ratio] 18.8 mg/mg Normal [facility] Comment on above: Performed By: #### C MP ####[facility] Htnyjvgmkv37[address] [place], [place] [address]Dr. Ricardo Rocha VANCOMYCIN TROUGHon 06-13-20 22 VANCOMYCIN TROUGH 15.2 ug/ml Normal 5.0-20.0 [facility] Comment on above: Performed By: #### V ANCT ####[facility] Mnqvbqccbr[address] [place], [place] [address]Dr. Ricardo Rocha VIT B12 AND FOLATEon 022 Cobalamin (Vitamin B12) [Mass/Vol] 874.0 pg/mL Normal 193.0-986.0 [facility] Comment on above: Performed By: #### F ETIBC, B12FOL ####[facility] Uximfzuira0339 [place] [address]Dr. Ricardo Rocha FOLATE 6.60 ng/mL Critically low 8.60-58.90 [facility] Comment on above: Performed By: #### F ETIBC, B12FOL ####[facility] Ljnomoznju7965 [place] [address]Dr. Ricardo Rocha XR FOOT LT MIN 3 VIEWSon XR FOOT LT MIN 3 VIEWS Normal [facility] CBC W MANUAL DIFFon 06-12-20 ATYPICAL LYMPH # Normal The [facility] Comment on above: Performed By: #### C DWAINE ####[facility] Fcvehbuvbh[address] [place], [place] [address]Dr. Ricardo Rocha ATYPICAL LYMPH % Normal [facility] Comment on above: Performed By: #### C DWAINE ####[facility] Ctwacwbyiv7465 [place] [address]Dr. Ricardo Rocha BAND # 1.9 103/ul Critically high 0.0-0.3 The [facility] Comment on above: Performed By: #### C DWAINE ####[facility] Dbdzitycxm4852 [place] [address]Dr. Ricardo Rocha BAND % 17 % Critically high 0-5 The [facility] Comment on above: Performed By: #### C DWAINE ####[facility] Asouptaugp1868 [place] [address]Dr. Ricardo Rocha BASOM # 0.00 103/ul Normal 0.00-0.10 The [facility] Comment on above: Performed By: #### C DWAINE ####[facility] Ndpzqsqpeg24[address] [place] [address]Dr. Ricardo Rocha BASOM % 0.0 % Critically low 0.2-2.0 [facility] Comment on above: Performed By: #### C DWAINE ####[facility] Sikhqrdybn28[address] [place] [phone]. Ricardo Rocha BLAST # Normal [facility] Comment on above: Performed By: #### C BCMAN ####[facility] Hzxgkrtupw0710 [place] [phone]. Ricardo Rocha BLAST % Normal [facility] Comment on above: Performed By: #### C BCRED ####[facility] Anrfrgjzpf8042 [place] [address]Dr. Ricardo Rocha CORRECTED WBC Normal 4.0-11.0 [facility] Comment on above: Performed By: #### C BCRED ####[facility] Oikxhvmwtm9022 [place] [address]Dr. Ricardo Rocha EOS # 0.00 103/ul Normal 0.00-0.70 [facility] Comment on above: Performed By: #### C DWAINE ####[facility] Dtswptdeje[address] [place], [place] [address]Dr. Ricardo Rocha EOS% 0.0 % Critically low 0.9-7.0 [facility] Comment on above: Performed By: #### C DWAINE ####[facility] Oonysmbkkv[address] [place], [place] [address]Dr. Ricardo Rocha HCT 28.0 % Critically low 36.0-48.0 [facility] Comment on above: Performed By: #### C DWAINE ####[facility] Dctskckmai[address] [place], [place] [address]Dr. Ricardo Rocha HGB 8.6 g/dl Critically low 12.0-16.0 [facility] Comment on above: Performed By: #### C BCRED ####[facility] Uraqizkoju78[address] [place] [address]Dr. Ricardo Rocha HYPOCHROMASIA SLIGHT Normal [facility] Comment on above: Performed By: #### C BCRED ####[facility] Hxeptabyif0172 [place] [address]Dr. Ricardo Rocha LYMPHM # 0.77 103/ul Critically low 1.20-3.80 [facility] Comment on above: Performed By: #### C DWAINE ####[facility] Wjbobimxaj6168 [place] [phone]. Ricardo Rocha LYMPHM% 7.0 % Critically low 20.5-60.0 [facility] Comment on above: Performed By: #### C DWAINE ####[facility] Xwnawfpnaj7462 [place] [phone]. Ricardo Aj MCH 25.1 pg Critically low 26.7-34.0 [facility] Comment on above: Performed By: #### C DWAINE ####[facility] Pshveqsqoi5994 [place] [phone]. Ricardo Rocha MCHC 30.7 g/dl Normal 29.9-35.2 [facility] Comment on above: Performed By: #### C DWAINE ####[facility] Nnxslcqzhn8404 [place] [address]Dr. Ricardo Aj MCV 81.9 fL Normal 81.0-99.0 [facility] Comment on above: Performed By: #### C DWAINE ####[facility] Prdlevjlcu8243 [place] [phone]. Ricardo Aj METAMYELOCYTE # Normal [facility] Comment on above: Performed By: #### C DWAINE ####[facility] Dzlwrpbnga1037 [place] [phone]. Ricardo Rocha METAMYELOCYTE % Normal [facility] Comment on above: Performed By: #### Esteban ISIDRO ####[facility] Xtootwlonn8408 [place] [phone]. Ricardo Rocha MONOM# 0.11 103/ul Critically low 0.30-0.80 [facility] Comment on above: Performed By: #### C DWAINE ####[facility] Kmllpjaknz9766 [place] [phone]. Ricardo Rocha MONOM% 1.0 % Critically low 1.7-12.0 [facility] Comment on above: Performed By: #### C DWAINE ####[facility] Jcklbrat[address] [place], [place] [address]Dr. Ricardo Rocha MPV 12.6 fL Normal 9.5-13.5 [facility] Comment on above: Performed By: #### C DWAINE ####[facility] Jmtgwwrdzy4785 [place] [phone]. Ricardo Rocha MYELOCYTE # Normal [facility] Comment on above: Performed By: #### C DWAINE ####[facility] Fjodmgiamp2460 [place] [phone]. Ricardo Rocha MYELOCYTE % Normal [facility] Comment on above: Performed By: #### C DWAINE ####[facility] Iyvfcnhbzs5824 [place] [phone]. Ricardo Rocha NRBC Normal [facility] Comment on above: Performed By: #### C DWAINE ####[facility] Ejmlcwjmos7365 [place] [phone]. Ricardo Rocha PLT 140 103/ul Critically low 150-450 [facility] Comment on above: Performed By: #### C DWAINE ####[facility] Eipyrnuxre8745 [place] [phone]. Ricardo Rocha RBC 3.42 106/ul Critically low 4.20-5.40 [facility] Comment on above: Performed By: #### C DWAINE ####[facility] Rqpfvbdruz0478 [place] [phone]. Ricardo Rocha RDW 13.7 % Normal 11.0-15.0 [facility] Comment on above: Performed By: #### C DWAINE ####[facility] Yufrmftmju8192 [place] [phone]. Ricardo Rocha SEG # 8.25 103/ul Critically high 1.40-6.50 The [facility] Comment on above: Performed By: #### C DWAINE ####[facility] Guwixfaisa6883 [place] [phone]. Ricardo Rocha SEG % 75.0 % Normal 43.0-75.0 [facility] Comment on above: Performed By: #### C DWAINE ####[facility] Jyqimedssb5071 [place] [phone]. Ricardo Rocha WBC 11.0 103/ul Normal 4.0-11.0 [facility] Comment on above: Performed By: #### C BCMAN ####[facility] Smigheoaqk5900 [place] [address]Dr. Ricardo Rocha POINT OF CARE GLUCOSEon 05-22 Glucose [Mass/Vol] 200 mg/dL Critically high 74-106 [facility] [place] Comment on above: Performed By: #### P OCGLUC ####[facility] Dimskvtixy9271 [place] [address]Dr. Ricardo Rocha Glucose [Mass/Vol] 165 mg/dL Critically high 74-106 [facility] [place] Comment on above: Performed By: #### P OCGLUC ####[facility] Fdfjjxikcq3152 [place] [address]Dr. Ricardo Rocha Glucose [Mass/Vol] 152 mg/dL Critically high -106 [facility] [place] Comment on above: Performed By: #### P OCGLUC ####[facility] Jfiqosuihw4524 [place] [address]Dr. Ricardo Rocha Glucose [Mass/Vol] 154 mg/dL Critically high -106 [facility] [place] Comment on above: Performed By: #### P OCGLUC ####[facility] Xcaaakwckw3794 [place] [address]Dr. Ricardo Rocha PROF 14(COMP METB)on 022 Albumin [Mass/Vol] 1.9 g/dL Critically low 3.4-5.0 [facility] Comment on above: Performed By: #### C MP ####[facility] Qizqmcvcyj7631 [place] [address]Dr. Ricardo Rocha Albumin/Globulin [Mass ratio] 0.4 {ratio} Normal [facility] Comment on above: Performed By: #### C MP ####[facility] Lxhpgzysce6587 [place] [address]Dr. Ricardo Rocha ALP [Catalytic activity/Vol] 68 U/L Normal 46-116 [facility] Comment on above: Performed By: #### C MP ####[facility] Vhiwdenwrj5368 [place] [phone]. Ricardo Rocha ALT [Catalytic activity/Vol] 16 U/L Normal 14-59 [facility] Comment on above: Performed By: #### C MP ####[facility] Mebqpqzjtj6851 [place] [address]Dr. Ricardo Rocha Anion gap [Moles/Vol] 15.1 mmol/L Normal [facility] Comment on above: Performed By: #### C MP ####[facility] Btqqmtyknv8[address] [place], [place] [address]Dr. Ricardo Rocha AST [Catalytic activity/Vol] 26 U/L Normal 15-37 [facility] Comment on above: Performed By: #### C MP ####[facility] Eisubxnzrd5065[address] [place], [place] [address]Dr. Ricardo Rocha Bilirubin [Mass/Vol] 0.3 mg/dL Normal 0.2-1.0 [facility] Comment on above: Performed By: #### C MP ####[facility] Eevtziesfe15[address] [place], [place] [address]Dr. Ricardo Rocha Calcium [Mass/Vol] 8.0 mg/dL Critically low 8.5-10.1 [facility] Comment on above: Performed By: #### C MP ####[facility] Wosftxvwfy40[address] [place], [place] [address]Dr. Ricardo Rocha Chloride [Moles/Vol] 110 mmol/L Critically high 98-107 [facility] Comment on above: Performed By: #### C MP ####[facility] Jsukuaxuvm7[address] [place], [place] [address]Dr. Ricardo Rocha CO2 [Moles/Vol] 18.0 mmol/L Critically low 21.0-32.0 [facility] Comment on above: Performed By: #### C MP ####[facility] Powjlatjrz5[address] [place], [place] [address]Dr. Ricardo Rocha Creatinine [Mass/Vol] 1.97 mg/dL Critically high 0.55-1.02 [facility] Comment on above: Performed By: #### C MP ####[facility] Lgdzpoqhom9027 [place] [phone]. Ricardo Rocha EGFR-AF BAHRAINI 31 mL/min/1.73m2 Critically low >=60 [facility] Comment on above: Performed By: #### C MP ####[facility] Pgbvehmwqk6812 [place] [phone]. Ricardo Rocha EGFR-NON AF BAHRAINI 26 mL/min/1.73m2 Critically low >=60 [facility] Comment on above: Performed By: #### C MP ####[facility] Jreznrcste3898 [place] [phone]. Ricardo Rocha Globulin (S) [Mass/Vol] 5.2 g/dL Normal [facility] Comment on above: Performed By: #### C MP ####[facility] Fazjeyeiaa2636 [place] [address]Dr. Ricardo Rocha Glucose [Mass/Vol] 146 mg/dL Critically high 74-106 [facility] Comment on above: Performed By: #### C MP ####[facility] Cxxsgxilkq3764 [place] [phone]. Ricardo Rocha Potassium [Moles/Vol] 3.1 mmol/L Critically low 3.5-5.1 [facility] Comment on above: Performed By: #### C MP ####[facility] Ceslsrkoly4725 [place] [phone]. Ricardo Rocha Protein [Mass/Vol] 7.1 g/dL Normal 6.4-8.2 The [facility] Comment on above: Performed By: #### C MP ####[facility] Mwilyyukuz0669 [place] [phone]. Ricardo Rocha Sodium [Moles/Vol] 140 mmol/L Normal 136-145 [facility] Comment on above: Performed By: #### C MP ####[facility] Buaweidnwp5954 [place] [address]Dr. Ricardo Rocha Urea nitrogen [Mass/Vol] 30.0 mg/dL Critically high 7.0-18.0 [facility] Comment on above: Performed By: #### C MP ####[facility] Qxdsfqiqpz8952 [place] [address]Dr. Ricardo Rocha Urea nitrogen/Creatinine [Mass ratio] 15.2 mg/mg Normal [facility] Comment on above: Performed By: #### C MP ####[facility] Belbxnxrnx97[address] [place], [place] [address]Dr. Ricardo Rocha CBC W MANUAL DIFFon 06-11-20 ATYPICAL LYMPH # Normal [facility] Comment on above: Performed By: #### C DWAINE ####[facility] Sektvsbfuv[address] [place], [place] [address]Dr. Ricardo Rocha ATYPICAL LYMPH % Normal [facility] Comment on above: Performed By: #### C DWAINE ####[facility] Ztdvofzjeq4[address] [place], [place] [address]Dr. Ricardo Rocha BAND # 1.1 103/ul Critically high 0.0-0.3 The [facility] Comment on above: Performed By: #### C DWAINE ####[facility] Dkcepkdotg7[address] [place], [place] [address]Dr. Ricardo Rocha BAND % 12 % Critically high 0-5 The [facility] Comment on above: Performed By: #### C DWAINE ####[facility] Bswqiexvex0[address] [place], [place] [address]Dr. Ricardo Rocha BASOM # 0.00 103/ul Normal 0.00-0.10 [facility] Comment on above: Performed By: #### C DWAINE ####[facility] Jzplamhugt24[address] [place], [place] [address]Dr. Ricardo Rocha BASOM % 0.0 % Critically low 0.2-2.0 [facility] Comment on above: Performed By: #### C DWAINE ####[facility] Uoxipiqjlg7772[address] [place], [place] [address]Dr. Ricardo Rocha BLAST # Normal [facility] Comment on above: Performed By: #### C DWAINE ####[facility] Xyrfgbnjgo380[address] [place], [place] [address]Dr. Ricardo Rocha BLAST % Normal [facility] Comment on above: Performed By: #### C DWAINE ####[facility] Jsqtnbjrke5650 [place], [place] [address]Vv. Ricardo Rocha CORRECTED WBC Normal 4.0-11.0 [facility] Comment on above: Performed By: #### C DWAINE ####[facility] Ulfywwnikz0522 [place], [place] [address]Aq. Ricardo Rocha EOS # 0.00 103/ul Normal 0.00-0.70 [facility] Comment on above: Performed By: #### C DWAINE ####[facility] Rassnfjbup7092 [place], [place] [address]Gt. Ricardo Rocha EOS% 0.0 % Critically low 0.9-7.0 [facility] Comment on above: Performed By: #### C DWAINE ####[facility] Lzlkkmsmra8011 [place], [place] [address]Ov. Ricardo Rocha HCT 32.6 % Critically low 36.0-48.0 [facility] Comment on above: Performed By: #### C DWAINE ####[facility] Mxweablkrp9318 [place] [phone]. Ricardo Rocha HGB 10.5 g/dl Critically low 12.0-16.0 [facility] Comment on above: Performed By: #### C DWAINE ####[facility] Yxncichnec5419 [place] [phone]. Ricardo Rocha LYMPHM # 0.46 103/ul Critically low 1.20-3.80 The [facility] Comment on above: Performed By: #### C DWAINE ####[facility] Xxfivyesai9172 [place], [place] [address]Cc. Ricardo Rocha LYMPHM% 5.0 % Critically low 20.5-60.0 [facility] Comment on above: Performed By: #### C DWAINE ####[facility] Rjhftdftrm5654 [place] [phone]. Ricardo Rocha MCH 25.3 pg Critically low 26.7-34.0 [facility] Comment on above: Performed By: #### C DWAINE ####[facility] Drqysagmnk6976 [place] [phone]. Ricardo Rocha MCHC 32.2 g/dl Normal 29.9-35.2 [facility] Comment on above: Performed By: #### C DWAINE ####[facility] Epnwgbzkqb9465 [place] [address]Dr. Ricardo Rocha MCV 78.6 fL Critically low 81.0-99.0 [facility] Comment on above: Performed By: #### C DWAINE ####[facility] Ortrstrpmp64[address] [place], [place] [address]Dr. Ricardo Rocha METAMYELOCYTE # Normal [facility] Comment on above: Performed By: #### C DWAINE ####[facility] Qkcaitievi5245[address] [place], [place] [address]Dr. Ricardo Rocha METAMYELOCYTE % Normal [facility] Comment on above: Performed By: #### C DWAINE ####[facility] Muubglsnrd3525[address] [place], [place] [address]Dr. Ricardo Rocha MONOM# 0.28 103/ul Critically low 0.30-0.80 [facility] Comment on above: Performed By: #### C DWAINE ####[facility] Bsmmalrmyc3220[address] [place], [place] [address]Dr. Ricardo Rocha MONOM% 3.0 % Normal 1.7-12.0 [facility] Comment on above: Performed By: #### C DWAINE ####[facility] Qotpjgjjdk9086[address] [place], [place] [address]Dr. Ricardo Rocha MPV 11.4 fL Normal 9.5-13.5 [facility] Comment on above: Performed By: #### C DWAINE ####[facility] Jeesawupih7[address] [place], [place] [address]Dr. Ricardo Rocha MYELOCYTE # Normal [facility] Comment on above: Performed By: #### C DWAINE ####[facility] Dymhryepkm8074[address] [place], [place] [address]Dr. Ricardo Rocha MYELOCYTE % Normal [facility] Comment on above: Performed By: #### C DWAINE ####[facility] Vkmzhbhwem2224 [place], [place] [address]Df. Ricardo Rocha NRBC Normal [facility] Comment on above: Performed By: #### C DWAINE ####[facility] Kakodtghvq5581 [place], [place] [address]Pz. Ricardo Rocha PLT 154 103/ul Normal 150-450 [facility] Comment on above: Performed By: #### C DWAINE ####[facility] Dwuqwoyiid0510 [place], [place] [address]Xy. Ricardo Rocha RBC 4.15 106/ul Critically low 4.20-5.40 The [facility] Comment on above: Performed By: #### C DWAINE ####[facility] Ekbpeliuzw3461 [place] [phone]. Ricardo Rocha RDW 12.8 % Normal 11.0-15.0 [facility] Comment on above: Performed By: #### C DWAINE ####[facility] Ndvesdrzxm9208 [place] [phone]. Ricardo Rocha SEG # 7.36 103/ul Critically high 1.40-6.50 [facility] Comment on above: Performed By: #### C DWAINE ####[facility] Dqddpjayzv7474 [place] [address]Dr. Ricardo Rocha SEG % 80.0 % Critically high 43.0-75.0 The [facility] Comment on above: Performed By: #### C DWAINE ####[facility] Mfaiagnjen0241 [place] [address]Dr. Ricardo Rocha WBC 9.2 103/ul Normal 4.0-11.0 [facility] Comment on above: Performed By: #### C DWAINE ####[facility] Fmalenstjd1736 [place] [phone]. Ricardo Rocha CT HEAD WO CONon 06-11-2022 CT HEAD WO CON Normal [facility] CULTURE ANAEROBICon 06-11-20 22 CULTURE ANAEROBIC Culture Observations : NO GROWTH OF ANAEROBES AT 72 HOURS. Normal [facility] Comment on above: Performed By: #### A NACX ####[facility] Mtmdofwvzx0000 [place] [address]Dr. Ricardo Rocha CULTURE ANAEROBIC Culture Observations : NO GROWTH OF ANAEROBES AT 72 HOURS. Normal [facility] Comment on above: Performed By: #### A NACX ####[facility] Pjdxlhmyls9635 [place] [phone]. Ricardo Rocha CULTURE BLOODon 06-11-2022 Microscopic examination of blood, culture Culture Observations: Aerobic bottle positive only. Culture Observations: No growth at 5 days in anaerobic bottle Culture Observations: See for Susceptibility testing. Isolate 1 Staphylococcus aureus Growth of Normal [facility] Comment on above: Performed By: #### B LDCX2 ####[facility] Wkeycvihyu39[address] [place], [place] [address]Dr. Ricardo Rocha CULTURE URINEon 06-11-2022 CULTURE URINE Culture Observations : LIGHT GROWTH OF MIXED GENITAL SHAHLA. NO POTENTIAL PATHOGENS SEEN. Normal [facility] Comment on above: Performed By: #### U RCX ####[facility] Rxazkmbbzn6923[address] [place], [place] [address]Dr. marcial Rocha Covid-19 PCR (CVDTBH)on 05-22 SARS-CoV-2 (COVID-19) RNA ADRIEL+probe Ql (Unsp spec) Not detected Normal NOT DETECTED [facility] Comment on above: Result Comment: [...] for this test is supported by the [place] of Health and Human Service's declaration that [...] be used). Performed By: #### C VDTBH ####[facility] Tdgtumtwuk5710 [place] [address]Dr. iRcardo Rocha ER URINE PROFILEon 2 Bilirubin Ql (U) Negative Normal NEGATIVE [facility] Comment on above: Performed By: #### SHAYNA ELENA ####[facility] Ykvnsmzpmm1832 [place] [address]Dr. Nanomarcial Rocha Clarity (U) CLEAR Normal CLEAR [facility] Comment on above: Performed By: #### JOSLYN ELENARO ####[facility] Wbrhpczvgb89[address] [place], [place] [address]Dr. Ricardo Rocha Color (U) LT. YELLOW Normal YELLOW [facility] Comment on above: Performed By: #### JOSLYN ELENARO ####[facility] Eanlgedvll8[address] [place], [place] [address]Dr. Ricardo Rocha ERUAHD A micrscopic examination will be performed if indicated. Normal [facility] Comment on above: Performed By: #### JOSLYN ELENARO ####[facility] Zthptlhjlp40[address] [place], [place] [address]Dr. Ricardo Rocha Glucose Ql (U) >1000 Abnormal NEGATIVE [facility] Comment on above: Performed By: #### JOSLYN ELENARO ####[facility] Hnhvrkwsru[address] [place], [place] [address]Dr. Ricardo Rocha Hemoglobin Ql (U) LARGE Abnormal NEGATIVE [facility] Comment on above: Performed By: #### SHAYNA ELENA ####[facility] Bmcysbyrdg699[address] [place], [place] [address]Dr. Ricardo Rocha Ketones Ql (U) 15 mg/dl Abnormal NEGATIVE [facility] Comment on above: Performed By: #### SHAYNA ELENA ####[facility] Erqukcdekp028[address] [place], [place] [address]Dr. Ricardo Rocha LEUKOCYTES Negative Normal NEGATIVE [facility] Comment on above: Performed By: #### SHAYNA ELENA ####[facility] Xsqefnhdop695[address] [place], [place] [address]Dr. Ricardo Rocha Nitrite Ql (U) Negative Normal NEGATIVE [facility] Comment on above: Performed By: #### SHAYNA ELENA ####[facility] Zkyeuawbrf9600 [place] [address]Dr. Ricardo Rocha pH (U) 6.0 [pH] Normal 5-9 [facility] Comment on above: Performed By: #### SHAYNA ELENA ####[facility] Psgetqxach1604[address] [place], [place] [address]Dr. Ricardo Rocha Protein (U) [Mass/Vol] 100 mg/dL Abnormal NEGATIVE/ TRACE [facility] Comment on above: Performed By: #### SHAYNA ELENA ####[facility] Gmmlqvtvbz[address] [place], [place] [address]Dr. Ricardo Rocha SPEC GRAVITY 1.020 Normal 1.005-<=1.02 5 [facility] Comment on above: Performed By: #### SHAYNA ELENA ####[facility] Suspladcng40[address] [place], [place] [address]Dr. Ricardo Rocha UR MICRO IND INDICATED Normal [facility] Comment on above: Performed By: #### SHAYNA ELENA ####[facility] Ugdtjqnjbh5907[address] [place], [place] [address]Dr. Ricardo Rocha Urobilinogen Qn (U) 0.2 {Madeleine'U}/dL Normal 0.2 - 1. 0 [facility] Comment on above: Performed By: #### SHAYNA ELENA ####[facility] Qkhllwpana0[address] [place], [place] [address]Dr. Ricardo Rocha GRAM STAINon 06-11-2022 DIPHTHEROIDS Normal [facility] Comment on above: Performed By: #### G STAIN ####[facility] Pdfioloxpo8[address] [place], [place] [address]Dr. Ricardo Rocha EPITHELIALS Normal [facility] Comment on above: Performed By: #### G STAIN ####[facility] Ccckwhluvn0[address] [place], [place] [address]Dr. Ricardo Rocha FUNGAL ELEMENTS Normal [facility] Comment on above: Performed By: #### G STAIN ####[facility] Center [address] [place] [address]Dr. Ricardo Rocha GRAM NEG BACILLI Normal [facility] Comment on above: Performed By: #### G STAIN ####[facility] Frbowzcicy[address] [place] [address]Dr. Ricardo Rocha GRAM NEG DIPPLOCOCCI Normal [facility] Comment on above: Performed By: #### G STAIN ####[facility] Gesnuxkzil50[address] [place] [address]Dr. Ricardo Rocha GRAM POS BACILLI Normal [facility] Comment on above: Performed By: #### G STAIN ####[facility] Gdsoditlhp[address] [place], [place] [address]Dr. Ricardo Rocha GRAM POSITIVE COCCI MANY Normal [facility] Comment on above: Performed By: #### G STAIN ####[facility] Wtcluwsotb75[address] [place], [place] [address]Dr. Ricardo Rocha GRAM STAIN SOURCE Left great toe tissu e after washout-clean Normal [facility] Comment on above: Performed By: #### G STAIN ####[facility] Xtbnsakecz4[address] [place], [place] [address]Dr. Ricardo Rocha GS_DIPTH Normal [facility] Comment on above: Performed By: #### G STAIN ####[facility] Dpvvjzpbgv[address] [place], [place] [address]Dr. Ricardo Rocha WBC RARE Normal [facility] Comment on above: Performed By: #### G STAIN ####[facility] Fwdtcgdfmd52[address] [place] [address]Dr. Ricardo Rocha DIPHTHEROIDS Normal [facility] Comment on above: Performed By: #### G STAIN ####[facility] Lsviytvkon4[address] [place], [place] [address]Dr. Ricardo Rocha EPITHELIALS Normal [facility] Comment on above: Performed By: #### G STAIN ####[facility] Lopnhcqxtx9214[address] [place], [place] [address]Dr. Ricardo Rocha FUNGAL ELEMENTS Normal The [facility] Comment on above: Performed By: #### G STAIN ####[facility] Bbgmmjgdqz0223 [place] [id number]. Ricardo Rocha GRAM NEG BACILLI Normal [facility] Comment on above: Performed By: #### G STAIN ####[facility] Mfnibakvzi9403 [place] [phone]. Ricardo Rocha GRAM NEG DIPPLOCOCCI Normal [facility] Comment on above: Performed By: #### G STAIN ####[facility] Rfadthbnrt37[address] [place] [address]Dr. Ricardo Rocha GRAM POS BACILLI Normal [facility] Comment on above: Performed By: #### G STAIN ####[facility] Vcywrhiutm3237 [place] [address]Dr. Ricardo Rocha GRAM POSITIVE COCCI RARE Normal The [facility] Comment on above: Performed By: #### G STAIN ####[facility] Jiqyfbctzn2601[address] [place], [place] [address]Dr. Ricardo Rocha GRAM STAIN SOURCE Left great toe Normal [facility] Comment on above: Performed By: #### G STAIN ####[facility] Otrblovzdo50[address] [place] [address]Dr. Ricardo Rocha GS_DIPTH Normal [facility] Comment on above: Performed By: #### G STAIN ####[facility] Depwryopya4387 [place] [address]Dr. Ricardo Rocha WBC RARE Normal [facility] Comment on above: Performed By: #### G STAIN ####[facility] Mrpvngkbdn8307 [place] [address]Dr. Ricardo Rocha DIPHTHEROIDS Normal [facility] Comment on above: Performed By: #### G STAIN ####[facility] Gopebtvlin[address] [place] [address]Dr. Ricardo Rocha EPITHELIALS Normal [facility] Comment on above: Performed By: #### G STAIN ####[facility] Vpaaarothz6122 [place] [address]Dr. Ricardo Rocha FUNGAL ELEMENTS Normal The [facility] Comment on above: Performed By: #### G STAIN ####[facility] Gblbpnuyca9802 [place] [address]Dr. Ricardo Rocha GRAM NEG BACILLI Normal [facility] Comment on above: Performed By: #### G STAIN ####[facility] Eoqbbolwyt29[address] [place], [place] [address]Dr. Nanomarcial Aj GRAM NEG DIPPLOCOCCI Normal [facility] Comment on above: Performed By: #### G STAIN ####[facility] Ojqzulgzyf8180[address] [place], [place] [address]Dr. Ricardo Rocha GRAM POS BACILLI Normal [facility] Comment on above: Performed By: #### G STAIN ####[facility] Iyauxfgqqx9256[address] [place], [place] [address]Dr. Ricardo Rocha GRAM POSITIVE COCCI FEW Normal [facility] Comment on above: Performed By: #### G STAIN ####[facility] Ivjatqhagh3273[address] [place], [place] [address]Dr. Ricardo Rocha GRAM STAIN SOURCE Left great toe abscess Normal [facility] Comment on above: Performed By: #### G STAIN ####[facility] Yjkrnrqayu750[address] [place], [place] [address]Dr. Ricardo Rocha GS_DIPTH Normal [facility] Comment on above: Performed By: #### G STAIN ####[facility] Ajxugqwxto6332[address] [place], [place] [address]Dr. Ricardo Rocha WBC FEW Normal [facility] Comment on above: Performed By: #### G STAIN ####[facility] Apahygxdko[address] [place], [place] [address]Dr. Ricardo Rocha LACTATE/LACTIC ACIDon 2021 Lactate [Moles/Vol] 2.2 mmol/L Critically high 0.4-1.9 [facility] Comment on above: Performed By: #### L ACT ####[facility] Fedtmcgkzr6132[address] [place], [place] [address]Dr. Ricardo Rocha POINT OF CARE GLUCOSEon 05-22 Glucose [Mass/Vol] 133 mg/dL Critically high 74-106 T [facility] Comment on above: Performed By: #### P OCGLUC ####[facility] Sucafgmusc[address] [place] [address]Dr. Ricardo Rocha Glucose [Mass/Vol] 215 mg/dL Critically high 74-106 [facility] [place] Comment on above: Performed By: #### P OCGLUC ####[facility] Ccohtjexlw0279 [place] [address]Dr. Ricardo Rocha Glucose [Mass/Vol] 207 mg/dL Critically high -106 [facility] [place] Comment on above: Performed By: #### P OCGLUC ####[facility] Efokfhynfv9161 [place] [address]Dr. Ricardo Rocha Glucose [Mass/Vol] 314 mg/dL Critically high -106 [facility] [place] Comment on above: Performed By: #### P OCGLUC ####[facility] Mrspvnvbfy1899[address] [place], [place] [address]Dr. Ricardo Rocha Glucose [Mass/Vol] 496 mg/dL Critically high -106 [facility] [place] Comment on above: Performed By: #### P OCGLUC ####[facility] Sqmioyjjay[address] [place], [place] [address]Dr. Ricardo Rocha Glucose [Mass/Vol] 561 mg/dL Critically high -106 [facility] [place] Comment on above: Result Comment: Prev iously Confirmed Performed By: #### P OCGLUC ####[facility] Hftlyftsvo75[address] [place], [place] [address]Dr. Ricardo Rocha PROF 14(COMP METB)on 022 Albumin [Mass/Vol] 2.4 g/dL Critically low 3.4-5.0 Th [facility] Comment on above: Performed By: #### C MP ####[facility] Luziuqpihn34[address] [place] [address]Dr. Ricardo Rocha Albumin/Globulin [Mass ratio] 0.4 {ratio} Normal [facility] Comment on above: Performed By: #### C MP ####[facility] Vrweofrdgt5327 [place] [address]Dr. Ricardo Rocha ALP [Catalytic activity/Vol] 82 U/L Normal 46-116 [facility] Comment on above: Performed By: #### C MP ####[facility] Fvjetrogzr3674 [place], [place] [address]Ko. Ricardo Rocha ALT [Catalytic activity/Vol] 12 U/L Critically low 14-59 [facility] Comment on above: Performed By: #### C MP ####[facility] Veuqwwplts2125 [place], [place] [address]Ak. Ricardo Rocha Anion gap [Moles/Vol] 15.1 mmol/L Normal [facility] Comment on above: Performed By: #### C MP ####[facility] Zozgvhjhzz3506 [place] [phone]. Ricardo Rocha AST [Catalytic activity/Vol] 14 U/L Critically low 15-37 [facility] Comment on above: Performed By: #### C MP ####[facility] Otpfsodhmd4338 [place] [phone]. Ricardo Rocha Bilirubin [Mass/Vol] 0.4 mg/dL Normal 0.2-1.0 [facility] Comment on above: Performed By: #### C MP ####[facility] Ssbylkmcvd2956 [place] [phone]. Ricardo Rocha Calcium [Mass/Vol] 8.8 mg/dL Normal 8.5-10.1 [facility] Comment on above: Performed By: #### C MP ####[facility] Nxzcqboqfc5572 [place] [phone]. Ricardo Rocha Chloride [Moles/Vol] 105 mmol/L Normal 98-107 [facility] Comment on above: Performed By: #### C MP ####[facility] Cvtauzjwcl0355 [place] [phone]. Ricardo Rocha CO2 [Moles/Vol] 21.2 mmol/L Normal 21.0-32.0 [facility] Comment on above: Performed By: #### C MP ####[facility] Biyxbiknka46[address] [place] [phone]. Ricardo Rocha Creatinine [Mass/Vol] 2.03 mg/dL Critically high 0.55-1.02 [facility] Comment on above: Performed By: #### C MP ####[facility] Unduncyiki9320 [place] [phone]. Ricardo Rocha EGFR-AF BAHRAINI 30 mL/min/1.73m2 Critically low >=60 [facility] Comment on above: Performed By: #### C MP ####[facility] Mpdntnoagl1614 [place] [phone]. Ricardo Rocha EGFR-NON AF BAHRAINI 25 mL/min/1.73m2 Critically low >=60 [facility] Comment on above: Performed By: #### C MP ####[facility] Hoilvsdpzh5824 [place] [phone]. Ricardo Rocha Globulin (S) [Mass/Vol] 5.7 g/dL Normal [facility] Comment on above: Performed By: #### C MP ####[facility] Oluixeplgn15[address] [place] [address]Dr. Ricardo Rocha Glucose [Mass/Vol] 309 mg/dL Critically high 74-106 [facility] [place] Comment on above: Performed By: #### C MP ####[facility] Hwfwwcrhhm8759 [place] [phone]. Ricardo Rocha Potassium [Moles/Vol] 3.3 mmol/L Critically low 3.5-5.1 [facility] Comment on above: Performed By: #### C MP ####[facility] Ywlteulcxo4270 [place] [address]Dr. Ricardo Rocha Protein [Mass/Vol] 8.1 g/dL Normal 6.4-8.2 The [facility] Comment on above: Performed By: #### C MP ####[facility] Inuglphuoz4045 [place] [phone]. Ricardo Rocha Sodium [Moles/Vol] 138 mmol/L Normal 136-145 [facility] Comment on above: Performed By: #### C MP ####[facility] Bswipzkvyp3819 [place] [address]Dr. Ricardo Rocha Urea nitrogen [Mass/Vol] 37.0 mg/dL Critically high 7.0-18.0 [facility] Comment on above: Performed By: #### C MP ####[facility] Jydhwgjrne7086 [place] [address]Dr. Ricardo Aj Urea nitrogen/Creatinine [Mass ratio] 18.2 mg/mg Normal [facility] Comment on above: Performed By: #### C MP ####[facility] Eahzpzntps0746 [place] [address]Dr. Ricardo Rocha SED RATE WESTERGRENon 2021 SED RATE >130 Critically high <=30 The [facility] Comment on above: Performed By: #### S EDR ####[facility] Pnsfomdxdx6346 [place] [address]Dr. Nanomarcial Rocha URINE MICROSCOPIC ONLYon AMORPHOUS CRYSTALS MODERATE Normal The [facility] Comment on above: Performed By: #### LOLY ELENAICRO ####[facility] Plialcmocp7889 [place] [address]Dr. Ricardo Rocha BACTERIA MODERATE Abnormal NONE SEEN [facility] Comment on above: Performed By: #### LOLY ELENAICRO ####[facility] Uyidjoensi34[address] [place], [place] [address]Dr. Ricardo Rocha Bacteria identified Cx Nom (U) INDICATED Normal [facility] Comment on above: Performed By: #### LOLY ELENAICRO ####[facility] Blqdhvpods3842 [place] [address]Dr. Ricardo Rocha CAST NONE SEEN Normal NONE SEEN [facility] Comment on above: Performed By: #### Jennifer HINOJOSA UMICRO ####[facility] Hifkrzmjrt2795 [place] [address]Dr. Ricardo Rocha Crystals LM Nom (Urine sed) SEEN Abnormal NONE SEEN [facility] Comment on above: Performed By: #### Jennifer HINOJOSA UMICRO ####[facility] Kkbdpkiulj[address] [place], [place] [address]Dr. Ricardo Rocha Epithelial cells LM Ql (Urine sed) NONE SEEN Normal NONE SEEN /RARE [facility] Comment on above: Performed By: #### Jennifer HINOJOSA UMICRO ####[facility] Dewbpcgrdr55[address] [place], [place] [address]Dr. Ricardo Rocha MUCOUS NONE SEEN Normal NONE SEEN [facility] Comment on above: Performed By: #### SHAYNA ELENA ####[facility] Ezknfdqabk4271 [place] [address]Dr. Nanomarcial Rocha RBC 2-5 Abnormal 0-2 [facility] Comment on above: Performed By: #### SHAYNA ELENA ####[facility] Xobdlrgrqi1093 [place] [address]Dr. Ricardo Rocha WBC 5-10 Abnormal NONE SEEN [facility] Comment on above: Performed By: #### SHAYNA ELENA ####[facility] Cqofjbizvx6622 [place] [address]Dr. Ricardo Rocha XR CHEST 1 Von 06-11-2022 XR CHEST 1 V Normal [facility] XR FOOT LT MIN 3 VIEWSon XR FOOT LT MIN 3 VIEWS Normal [facility] XR FOOT LT MIN 3 VIEWS Normal [facility] ACETONE SERUMon 06-10-2022 ACETONE Negative Normal NEGATIVE [facility] Comment on above: Performed By: #### A CETON ####[facility] Kmpnvqledu6764[address] [place], [place] [address]Dr. Ricardo Aj AMMONIAon 06-10-2022 Ammonia (P) [Mass/Vol] ug/dL Critically low [facility] Comment on above: Performed By: #### A MM ####[facility] Fpafqvrwml1512[address] [place], [place] [address]Dr. Ricardo Rocha BLOOD CULTURE ID PANELon A. baumannii Not detected Normal NOT DETECTED [facility] Comment on above: Performed By: #### B CID2 ####[facility] Qqhhufadbh3374[address] [place], [place] [address]Dr. Ricardo Rocha Bacteriodes fragilis Not detected Normal NOT DETECTED [facility] Comment on above: Performed By: #### B CID2 ####[facility] Whdrblyorq1262 [place] [address]Dr. Ricardo Rocha BCID CONTROLS PASSED Normal [facility] Comment on above: Performed By: #### B CID2 ####[facility] Roybtntgjf7860 [place] [id number]. Ricardo Rocha BCIDBTHD BLOOD CULTURE BOTTLE INFORMATION Normal [facility] Comment on above: Performed By: #### B CID2 ####[facility] Ihijmysiid6230 [place] [address]Dr. Yimarcial Rocha BCIDHD1 ANTIMICROBIAL RESISTANCE GENES [facility] Comment on above: Performed By: #### B CID2 ####[facility] Mwaoxhpzob5293[address] [place], [place] [address]Dr. Yimarcial Rocha BCIDHD2 SEE BELOW [facility] Comment on above: Result Comment: Note : Antimicrobial resitance can occur via multiple mechanisms. A Not Detected result for the [employer] antomicrobial resistance gene assays does not indicate antimicrobial susceptibility. Subculturing is required for species identification and susceptibility testing of isolates. Performed By: #### B CID2 ####[facility] Lwqvulqncy9064[address] [place], [place] [address]Dr. Ricardo Rocha BCIDHD3 Positive [facility] Comment on above: Performed By: #### B CID2 ####[facility] Qjdwgnwbnj8823 [place] [address]Dr. Yimarcial Rocha BCIDHD4 Negative [place] [facility] Comment on above: Performed By: #### B CID2 ####[facility] Jevkyhfwvb7104[address] [place], [place] [address]Dr. Yimarcial Rocha BCIDHD5 YEAST Normal [facility] Comment on above: Performed By: #### B CID2 ####[facility] Ybsrielftm1652 [place] [address]Dr. Yilan Rocha Bottle Set: Set 1 Normal [facility] Comment on above: Performed By: #### B CID2 ####[facility] Mzustywgxe[address] [place], [place] [address]Dr. Yilan Rocha Bottle: Aerobic Normal [facility] Comment on above: Performed By: #### B CID2 ####[facility] Tqpyawokha037[address] [place], [place] [address]Dr. Yilan Rocha C. neoformans/gattii Not detected Normal NOT DETECTED [facility] Comment on above: Performed By: #### B CID2 ####[facility] Vvxbpgcqjz5931 [place] [address]Dr. Yilan Rocha Lauren albicans Not detected Normal NOT DETECTED [facility] Comment on above: Performed By: #### B CID2 ####[facility] Mgajxwgllq4702 [place] [address]Dr. Yilan Rocha Lauren auris Not detected Normal NOT DETECTED [facility] Comment on above: Performed By: #### B CID2 ####[facility] Udvrivpkuh2643 [place] [address]Dr. Yilan Rocha Lauren glabrata Not detected Normal NOT DETECTED [facility] Comment on above: Performed By: #### B CID2 ####[facility] Typkokhcjq8204[address] [place], [place] [address]Dr. Yilan Rocha Lauren Krusei Not detected Normal NOT DETECTED The [facility] Comment on above: Performed By: #### B CID2 ####[facility] Vypnjxqkie3869[address] [place], [place] [address]Dr. Yilan Rocha Lauren Parapsilosis Not detected Normal NOT DETECTED [facility] Comment on above: Performed By: #### B CID2 ####[facility] Efuiqjizfp7969[address] [place], [place] [address]Dr. Yilan Rocha Lauren Tropicalis Not detected Normal NOT DETECTED [facility] Comment on above: Performed By: #### B CID2 ####[facility] Nexvltffkv1112 [place] [address]Dr. Yimarcial Rocha CTX-M Resistant Gene Not Applicable Normal NOT DETECTE D [facility] Comment on above: Performed By: #### B CID2 ####[facility] Rbzphhwfzc1100 [place] [address]Dr. Yilan Rocha E. Cloacae complex Not detected Normal NOT DETECTED [facility] Comment on above: Performed By: #### B CID2 ####[facility] Kqkrvziwqo3679 [place] [address]Dr. Yilan Rocha E. faecalis Not detected Normal NOT DETECTED The [facility] Comment on above: Performed By: #### B CID2 ####[facility] Figgnqztis0430[address] [place], [place] [address]Dr. Ricardo Rocha E. faecium Not detected Normal NOT DETECTED The [facility] Comment on above: Performed By: #### B CID2 ####[facility] Vgibbqukcu33[address] [place], [place] [address]Dr. Ricarod Rocha Enterobacteriaceae Not detected Normal NOT DETECTED [facility] Comment on above: Performed By: #### B CID2 ####[facility] Ozmdynmoco9201[address] [place], [place] [address]Dr. Ricardo Rocha Escherichia coli Not detected Normal NOT DETECTED [facility] Comment on above: Performed By: #### B CID2 ####[facility] Hfafeiwxvh780[address] [place], [place] [address]Dr. Ricardo Rocha H. influenzae Not detected Normal NOT DETECTED [facility] Comment on above: Performed By: #### B CID2 ####[facility] Beixijkkwa337[address] [place], [place] [address]Dr. Ricardo Rocha IMP Resistant Gene Not Applicable Normal NOT DETECTED [facility] Comment on above: Performed By: #### B CID2 ####[facility] Eufwxofqlm7557[address] [place], [place] [address]Dr. Ricardo Rocha K. oxytoca Not detected Normal NOT DETECTED [facility] Comment on above: Performed By: #### B CID2 ####[facility] Oiaioyiumj8709[address] [place], [place] [address]Dr. Ricardo Rocha K. pneumoniae Not detected Normal NOT DETECTED [facility] Comment on above: Performed By: #### B CID2 ####[facility] Gxkgjkphif033[address] [place], [place] [address]Dr. Ricardo Rocha Klebsiella aerogenes Not detected Normal NOT DETECTED [facility] Comment on above: Performed By: #### B CID2 ####[facility] Msojgnfmiw3873[address] [place], [place] [address]Dr. Ricardo Rocha KPC Resistant Gene Not Applicable Normal NOT DETECTED [facility] Comment on above: Performed By: #### B CID2 ####[facility] Wwsdcbqmqw8243[address] [place], [place] [address]Dr. Ricardo Rocha List. monocytogenes Not detected Normal NOT DETECTED T [facility] Comment on above: Performed By: #### B CID2 ####[facility] Xuzablawuv9364[address] [place], [place] [address]Dr. Ricardo Rocha Mcr-1 Resistant Gene Not Applicable Normal NOT DETECTE D [facility] Comment on above: Performed By: #### B CID2 ####[facility] Ygfrvkxcda8145[address] [place], [place] [address]Dr. Ricardo Rocha mecA/C Not Applicable Normal NOT DETECTED [facility] Comment on above: Performed By: #### B CID2 ####[facility] Pnzesgpveu0929[address] [place], [place] [address]Dr. Ricardo Rocha mecA/C MREJ Detected Abnormal NOT DETECTED [facility] Comment on above: Performed By: #### B CID2 ####[facility] Ypawhjsdqd088[address] [place], [place] [address]Dr. Ricardo Rocha N. meningitidis Not detected Normal NOT DETECTED The [facility] Comment on above: Performed By: #### B CID2 ####[facility] Njqjpajtnz9827[address] [place], [place] [address]Dr. Ricardo Rocha NDM Resistant Gene Not Applicable Normal NOT DETECTED [facility] Comment on above: Performed By: #### B CID2 ####[facility] Quvwsmgfql2545[address] [place], [place] [address]Dr. Ricardo Rocha Oxa-48-like Not Applicable Normal NOT DETECTED [facility] Comment on above: Performed By: #### B CID2 ####[facility] Juewypntwf989[address] [place], [place] [address]Dr. Ricardo Rocha Proteus Not detected Normal NOT DETECTED [facility] Comment on above: Performed By: #### B CID2 ####[facility] Linzqyazke0730[address] [place], [place] [address]Dr. Ricardo Rocha Pseud. aeruginosa Not detected Normal NOT DETECTED [facility] [facility] Comment on above: Performed By: #### B CID2 ####[facility] Wjlwcevevy[address] [place], [place] [address]Dr. Ricardo Rocha S. maltophilia Not detected Normal NOT DETECTED [facility] Comment on above: Performed By: #### B CID2 ####[facility] Htozrxagto0[address] [place], [place] [address]Dr. Ricardo Rocha Salmonella Not detected Normal NOT DETECTED The [facility] Comment on above: Performed By: #### B CID2 ####[facility] Viynfeycod1057[address] [place], [place] [address]Dr. Ricardo Rocha Seratia marcescens Not detected Normal NOT DETECTED [facility] Comment on above: Performed By: #### B CID2 ####[facility] Ahulpgjgyn7[address] [place], [place] [address]Dr. Ricardo Rocha Site: LEFT AC IV START Normal The [facility] Comment on above: Performed By: #### B CID2 ####[facility] Hykzzflqma412[address] [place], [place] [address]Dr. Ricardo Rocha Staph. aureus Detected Critically abnormal NOT DETECTED [facility] Comment on above: Performed By: #### B CID2 ####[facility] Lodhbzzzga6817[address] [place], [place] [address]Dr. Ricardo Rocha Staph. epidermidis Not detected Normal NOT DETECTED [facility] Comment on above: Performed By: #### B CID2 ####[facility] Jzmuzitgwl4[address] [place], [place] [address]Dr. Ricardo Rocha Staph. lugdunensis Not detected Normal NOT DETECTED [facility] Comment on above: Performed By: #### B CID2 ####[facility] Iauzohajvn025[address] [place], [place] [address]Dr. Ricardo Rocha Staphylococcus Detected Critically abnormal NOT DETECTED [facility] Comment on above: Performed By: #### B CID2 ####[facility] Zylljmyiiw9233[address] [place], [place] [address]Dr. Ricardo Rocha Strep. agalactiae Not detected Normal NOT DETECTED [facility] Comment on above: Performed By: #### B CID2 ####[facility] Pvcbccuhyr9376[address] [place], [place] [address]Dr. Ricardo Rocha Strep. pneumoniae Not detected Normal NOT DETECTED [facility] Comment on above: Performed By: #### B CID2 ####[facility] Lijjyskkxm8657[address] [place], [place] [address]Dr. Ricardo Rocha Strep. pyogenes Not detected Normal NOT DETECTED The [facility] Comment on above: Performed By: #### B CID2 ####[facility] Ceuiufcsho230[address] [place], [place] [address]Dr. Ricardo Rocha Streptococcus Not detected Normal NOT DETECTED [facility] Comment on above: Performed By: #### B CID2 ####[facility] Hawrjupepo6201[address] [place], [place] [address]Dr. Ricardo Rocha Layne/B Resist. Gene Not Applicable Normal NOT DETECTED [facility] Comment on above: Performed By: #### B CID2 ####[facility] Attshauatl162[address] [place], [place] [address]Dr. Ricardo Rocha VIM Resistant Gene Not Applicable Normal NOT DETECTED [facility] Comment on above: Performed By: #### B CID2 ####[facility] Qoidebtijh8638[address] [place], [place] [address]Dr. Ricardo Rocha BLOOD GASES BTYon 06-10-2022 02 MODE ROOM AIR Normal [facility] Comment on above: Performed By: #### A BG ####[facility] Ournuivtko3230[address] [place], [place] [address]Dr. Ricardo Rocha ALLENS TEST Positive Normal [facility] Comment on above: Performed By: #### A BG ####[facility] Ieqtrcwjkv437[address] [place], [place] [address]Dr. Ricardo Rocha Base excess Calc (Bld) [Moles/Vol] -4.5000 mmol/L Critically low -2.0-2.0 [facility] Comment on above: Performed By: #### A BG ####[facility] Rdspzeypmn8635[address] [place], [place] [address]Dr. Ricardo Rocha BIPAP PRESSURE Normal [facility] Comment on above: Performed By: #### A BG ####[facility] Uppvowmpvo7749[address] [place], [place] [address]Dr. Ricardo Rocha CPAP Normal [facility] Comment on above: Performed By: #### A BG ####[facility] Hpiynfhadf[address] [place] [address]Dr. Ricardo Rocha FIO2 Normal [facility] Comment on above: Performed By: #### A BG ####[facility] Nwssaoogmt2274[address] [place], [place] [address]Dr. Ricardo Rocha HCO3 (Bld) [Moles/Vol] 21.4 mmol/L Critically low 22.0-26.0 [facility] Comment on above: Performed By: #### A BG ####[facility] Jqnlrklskb4376[address] [place], [place] [address]Dr. Ricardo Rocha LPM Normal [facility] Comment on above: Performed By: #### A BG ####[facility] Iqvkfdqfvj0962[address] [place], [place] [address]Dr. Ricardo Rocha MINUTE VOLUME Normal [facility] Comment on above: Performed By: #### A BG ####[facility] Cvsirdxynr4895[address] [place], [place] [address]Dr. Ricardo Rocha Oxygen (Bld) [Partial pressure] 66.4 mm[Hg] Critically low 80.0-100.0 [facility] Comment on above: Performed By: #### A BG ####[facility] Mwwmyvkhqq5975[address] [place], [place] [address]Dr. Ricardo Rocha Oxygen saturation in Blood 94.6 % Critically low 95.0-100.0 [facility] Comment on above: Performed By: #### A BG ####[facility] Pwbzdwmdab5375[address] [place], [place] [address]Dr. Ricardo Rocha PCO2 29.4 mmHg Critically low 35.0-45.0 The [facility] Comment on above: Performed By: #### A BG ####[facility] Fxftgiuchy8897[address] [place], [place] [address]Dr. Ricardo Rocha PEEP Normal [facility] Comment on above: Performed By: #### A BG ####[facility] Eaklblsksq090[address] [place], [place] [address]Dr. Ricardo Rocha pH (Bld) 7.436 [pH] Normal 7.350-7.450 [facility] Comment on above: Performed By: #### A BG ####[facility] Ywigvswsjk7032 [place] [address]Dr. Ricardo Rocha PIP Normal [facility] Comment on above: Performed By: #### A BG ####[facility] Rkteyzzgqi[address] [place] [address]Dr. Ricardo Rocha PS Normal [facility] Comment on above: Performed By: #### A BG ####[facility] Pwoyhorszq0770 [place] [address]Dr. Ricardo Rocha PUNCTURE SITE LR Normal [facility] Comment on above: Performed By: #### A BG ####[facility] Estoxwvpvc[address] [place], [place] [address]Dr. Ricardo Rocha RATE [facility] Comment on above: Performed By: #### A BG ####[facility] Sqfbvnmnwq5117[address] [place], [place] [address]Dr. Ricardo Rocha VENT MODE [facility] Comment on above: Performed By: #### A BG ####[facility] Zrxewybxwv186[address] [place], [place] [address]Dr. Ricardo Rocha VT [facility] Comment on above: Performed By: #### A BG ####[facility] Lhjkbvffzj25[address] [place], [place] [address]Dr. Ricardo Rocha CBC W MANUAL DIFFon 06-10-20 22 ATYPICAL LYMPH # Normal [facility] Comment on above: Performed By: #### C BCMAN ####[facility] Oiqklmimcu4[address] [place] [address]Dr. Ricardo Rocha ATYPICAL LYMPH % Normal [facility] Comment on above: Performed By: #### C BCMAN ####[facility] Wyfrytlcto7947[address] [place], [place] [address]Dr. Ricardo Rocha BAND # 1.3 103/ul Critically high 0.0-0.3 The [facility] Comment on above: Performed By: #### C BCMAN ####[facility] Ivolgqetpa8394[address] [place], [place] [address]Dr. Ricardo Rocha BAND % 12 % Critically high 0-5 The [facility] Comment on above: Performed By: #### C BCRED ####[facility] Fyusafyybg0137 [place] [address]Dr. Ricardo Rocha BASOM # 0.00 103/ul Normal 0.00-0.10 [facility] Comment on above: Performed By: #### C BCMAN ####[facility] Ekdmgcfzxb7913 [place] [address]Dr. Ricardo Rocha BASOM % 0.0 % Critically low 0.2-2.0 [facility] Comment on above: Performed By: #### C BCRED ####[facility] Bbicjrwvyi2567 [place] [address]Dr. Ricardo Rocha BLAST # Normal [facility] Comment on above: Performed By: #### C DWAINE ####[facility] Agamsguyjp8316 [place] [address]Dr. Ricardo Rocha BLAST % Normal [facility] Comment on above: Performed By: #### C BCRED ####[facility] Lepiluqrof35[address] [place], [place] [address]Dr. Ricardo Rocha CORRECTED WBC Normal 4.0-11.0 [facility] Comment on above: Performed By: #### C BCRED ####[facility] Mbmjxjeduh5707 [place] [address]Dr. Ricardo Rcoha EOS # 0.00 103/ul Normal 0.00-0.70 [facility] Comment on above: Performed By: #### C BCRED ####[facility] Kwkysaqihe9661 [place] [address]Dr. Ricardo Rocha EOS% 0.0 % Critically low 0.9-7.0 [facility] Comment on above: Performed By: #### C BCRED ####[facility] Akwkwhejiq1120[address] [place], [place] [address]Dr. Ricardo Rocha HCT 35.5 % Critically low 36.0-48.0 [facility] Comment on above: Performed By: #### C BCRED ####[facility] Iwdjmwijbv1186[address] [place], [place] [address]Dr. Ricardo Rocha HGB 11.4 g/dl Critically low 12.0-16.0 [facility] Comment on above: Performed By: #### C DWAINE ####[facility] Xuzgsmoqfs1517 [place] [address]Dr. Ricardo Rocha HYPERSEG NEUT 3+ Normal [facility] Comment on above: Performed By: #### C DWAINE ####[facility] Gevkiuzruz1748 [place] [address]Dr. Ricardo Rocha LYMPHM # 0.21 103/ul Critically low 1.20-3.80 The [facility] Comment on above: Performed By: #### C DWAINE ####[facility] Vrwfgttwdv9887[address] [place], [place] [address]Dr. Ricardo Rocha LYMPHM% 2.0 % Critically low 20.5-60.0 [facility] Comment on above: Performed By: #### C DWAINE ####[facility] Nczsgadvsu2892[address] [place], [place] [address]Dr. Ricardo Rocha MCH 25.3 pg Critically low 26.7-34.0 [facility] Comment on above: Performed By: #### C DWAINE ####[facility] Xfiqcrnkvu[address] [place], [place] [address]Dr. Ricardo Rocha MCHC 32.1 g/dl Normal 29.9-35.2 [facility] Comment on above: Performed By: #### Esteban ISIDRO ####[facility] Nowsrdsrca20[address] [place], [place] [address]Dr. Ricardo Rocha MCV 78.9 fL Critically low 81.0-99.0 [facility] Comment on above: Performed By: #### C DWAINE ####[facility] Bdbqfmugnm966[address] [place], [place] [address]Dr. Ricardo Rocha METAMYELOCYTE # Normal The [facility] Comment on above: Performed By: #### C DWAINE ####[facility] Uglozapegy7413[address] [place], [place] [address]Dr. Ricardo Aj METAMYELOCYTE % Normal [facility] Comment on above: Performed By: #### C EVELYNMAN ####[facility] Xdjnabjmdt8299 [place] [id number]. Ricardo Rocha MONOM# 0.32 103/ul Normal 0.30-0.80 [facility] Comment on above: Performed By: #### Esteban ISIDRO ####[facility] Iievtvwccx5842 [place] [id number]. Ricardo Rocha MONOM% 3.0 % Normal 1.7-12.0 [facility] Comment on above: Performed By: #### C DWAINE ####[facility] Iwmrevdlpu5857 [place] [id number]. Ricardo Rocha MPV 10.9 fL Normal 9.5-13.5 [facility] Comment on above: Performed By: #### Esteban ISIDRO ####[facility] Kquaxmsond[address] [place], [place] [address]Dr. Ricardo Rocha MYELOCYTE # Normal [facility] Comment on above: Performed By: #### Esteban ISIDRO ####[facility] Qwbitynwei12[address] [place], [place] [address]Dr. Ricardo Rocha MYELOCYTE % Normal [facility] Comment on above: Performed By: #### Esteban ISIDRO ####[facility] Odczajknba640[address] [place], [place] [address]Dr. Ricardo Rocha NRBC Normal [facility] Comment on above: Performed By: #### Esteban ISIDRO ####[facility] Rmbapreqzl[address] [place], [place] [address]Dr. Ricardo Rocha PLT 180 103/ul Normal 150-450 [facility] Comment on above: Performed By: #### Esteban ISIDRO ####[facility] Pmoiaejogo[address] [place], [place] [address]Dr. Ricardo Rocha RBC 4.50 106/ul Normal 4.20-5.40 [facility] Comment on above: Performed By: #### Esteban ISIDRO ####[facility] Snruouqmyk[address] [place], [place] [address]Dr. Ricardo Rocha RDW 12.8 % Normal 11.0-15.0 [facility] Comment on above: Performed By: #### C EVELYNMAN ####[facility] Ltsjrkcxov5576 [place] [id number]. Ricardo Rocha SEG # 8.71 103/ul Critically high 1.40-6.50 [facility] Comment on above: Performed By: #### C BCMAN ####[facility] Jhglbdcvfd0309 [place] [id number]. Ricardo Rocha SEG % 83.0 % Critically high 43.0-75.0 [facility] Comment on above: Performed By: #### C BCMAN ####[facility] Jwlfvmdtep8368 [place] [id number]. Ricardo Rocha TOXIC GRANULATION 2+ Normal [facility] Comment on above: Performed By: #### C BCMAN ####[facility] Pgndxhnwrh1758 [place] [id number]. Ricardo Rocha WBC 10.5 103/ul Normal 4.0-11.0 [facility] Comment on above: Performed By: #### C BCMAN ####[facility] Vpuuqddbwk[address] [place], [place] [address]Dr. Ricardo Rocha CULTURE BLOODon 06-10-2022 Microscopic examination of blood, culture Culture Observations: Positive blood culture. Pediatric bottle. Culture Observations: Please refer to for susceptibility testing. Isolate 1 Staphylococcus aureus Growth of Normal [facility] Comment on above: Performed By: #### B LDCX2 ####[facility] Vhlftcfsov[address] [place], [place] [address]Dr. Ricardo Rocha LACTATE/LACTIC ACIDon 2021 Lactate [Moles/Vol] 1.9 mmol/L Normal 0.4-1.9 [facility] Comment on above: Performed By: #### L ACT ####[facility] Qzqgsrykrq8[address] [place], [place] [address]Dr. Ricardo Rocha LIPASEon 06-10-2022 Lipase [Catalytic activity/Vol] 164.0 U/L Normal 73.0-393.0 [facility] Comment on above: Performed By: #### H STROPN, LIPA, CMP, TSH ####[facility] Hncgzdwzfe[address] [place] [address]Dr. Ricardo Rocha POINT OF CARE GLUCOSEon 05-22 Glucose [Mass/Vol] 583 mg/dL Critically high 74-106 T [facility] Comment on above: Result Comment: Resu lt Not Confirmed Performed By: #### P OCGLUC ####[facility] Xtrzmefexn[address]46 [place] [address]Dr. Ricardo Rocha PROF 14(COMP METB)on 022 Albumin [Mass/Vol] 3.0 g/dL Critically low 3.4-5.0 [facility] Comment on above: Performed By: #### H STROPN, LIPA, CMP, TSH ####[facility] Isljuhnpqy52[address] [place] [address]Dr. Ricardo Rocha Albumin/Globulin [Mass ratio] 0.5 {ratio} Normal [facility] Comment on above: Performed By: #### H STROPN, LIPA, CMP, TSH ####[facility] Nuposyerhp[address] [place] [address]Dr. Ricardo Rocha ALP [Catalytic activity/Vol] 116 U/L Normal 46-116 [facility] Comment on above: Performed By: #### H STROPN, LIPA, CMP, TSH ####[facility] Lbwcygujwc8[address] [place] [address]Dr. Ricardo Rocha ALT [Catalytic activity/Vol] 15 U/L Normal 14-59 [facility] Comment on above: Performed By: #### H STROPN, LIPA, CMP, TSH ####[facility] Dxysqbpuos3422 [place] [address]Dr. Ricardo Rocha Anion gap [Moles/Vol] 15.7 mmol/L Normal [facility] Comment on above: Performed By: #### H STROPN, LIPA, CMP, TSH ####[facility] Niejqalrzv[address] [place] [address]Dr. Ricardo Rocha AST [Catalytic activity/Vol] 16 U/L Normal 15-37 [facility] Comment on above: Performed By: #### H STROPN, LIPA, CMP, TSH ####[facility] Gjivkeigiq84[address] [place] [address]Dr. Ricardo Rocha Bilirubin [Mass/Vol] 0.5 mg/dL Normal 0.2-1.0 [facility] Comment on above: Performed By: #### H STROPN, LIPA, CMP, TSH ####[facility] Aszlksswew40[address] [place] [address]Dr. Ricardo Rocha Calcium [Mass/Vol] 9.4 mg/dL Normal 8.5-10.1 [facility] Comment on above: Performed By: #### H STROPN, LIPA, CMP, TSH ####[facility] Jfdeuiotig[address] [place] [address]Dr. Ricardo Rocha Chloride [Moles/Vol] 95 mmol/L Critically low 98-107 [facility] Comment on above: Performed By: #### H STROPN, LIPA, CMP, TSH ####[facility] Skknzdhdpl[address] [place] [address]Dr. Ricardo Rocha CO2 [Moles/Vol] 22.1 mmol/L Normal 21.0-32.0 [facility] Comment on above: Performed By: #### H STROPN, LIPA, CMP, TSH ####[facility] Jtifzwyssd1282 [place] [address]Dr. Ricardo Rocha Creatinine [Mass/Vol] 2.23 mg/dL Critically high 0.55-1.02 [facility] Comment on above: Performed By: #### H STROPN, LIPA, CMP, TSH ####[facility] Yiygeiblxf[address] [place] [address]Dr. Ricardo Rocha EGFR-AF BAHRAINI 27 mL/min/1.73m2 Critically low >=60 [facility] Comment on above: Performed By: #### H STROPN, LIPA, CMP, TSH ####[facility] Tfgsewuzvv6421 [place] [address]Dr. Ricardo Rocha EGFR-NON AF BAHRAINI 22 mL/min/1.73m2 Critically low >=60 [facility] Comment on above: Performed By: #### H STROPN, LIPA, CMP, TSH ####[facility] Xbbfgciegu9974 [place] [address]Dr. Ricardo Rocha Globulin (S) [Mass/Vol] 6.5 g/dL Normal [facility] Comment on above: Performed By: #### H STROPN, LIPA, CMP, TSH ####[facility] Wzoozgfpgc9592 [place] [address]Dr. Ricardo Rocha Glucose [Mass/Vol] 593 mg/dL Critically high 74-106 [facility] Comment on above: Performed By: #### H STROPN, LIPA, CMP, TSH ####[facility] Fiqhcsppwv5964 [place] [address]Dr. Ricardo Rocha Potassium [Moles/Vol] 3.8 mmol/L Normal 3.5-5.1 [facility] Comment on above: Performed By: #### H STROPN, LIPA, CMP, TSH ####[facility] Aoecsttcdv1745 [place] [address]Dr. Ricardo Rocha Protein [Mass/Vol] 9.5 g/dL Critically high 6.4-8.2 [facility] Comment on above: Performed By: #### H STROPN, LIPA, CMP, TSH ####[facility] Jhnaypbiec6346 [place] [address]Dr. Ricardo Rocha Sodium [Moles/Vol] 129 mmol/L Critically low 136-145 [facility] Comment on above: Performed By: #### H STROPN, LIPA, CMP, TSH ####[facility] Aarcjqblap3105 [place] [address]Dr. Ricardo Rocha Urea nitrogen [Mass/Vol] 40.0 mg/dL Critically high 7.0-18.0 [facility] Comment on above: Performed By: #### H STROPN, LIPA, CMP, TSH ####[facility] Mfrvbniqbm5452 [place] [address]Dr. Ricardo Rocha Urea nitrogen/Creatinine [Mass ratio] 17.9 mg/mg Normal [facility] Comment on above: Performed By: #### H STROPN, LIPA, CMP, TSH ####[facility] Ekxjmsxtpx2190 [place] [address]Dr. Ricardo Rocha PROTIMEon 06-10-2022 INR Coag (PPP) [Relative time] 1.00 {INR} Normal [facility] Comment on above: Performed By: #### P TT, PT ####[facility] Qajrxfanpr70[address] [place] [address]Dr. Ricardo Rocha INR GUIDELINES SEE BELOW Normal [facility] Comment on above: Result Comment: AMBROSIO RED INR: 2.0 - 3.0 CONDITIONS NOT LISTED BELOW 2.5 - 3.5 FOR PROSTHETIC HEART VALVE REPLACEMENT 2.5 - 3.5 RECURRENT THROMBOSIS Performed By: #### P TT, PT ####[facility] Dvlvxucoah[address] [place], [place] [address]Dr. Ricardo Rocha PT Coag (PPP) [Time] 10.8 s Normal 9.0-11.6 [facility] Comment on above: Performed By: #### P TT, PT ####[facility] Jgunjdyxmf[address] [place], [place] [address]Dr. Ricardo Rocha PTTon 06-10-2022 aPTT Coag (Bld) [Time] 31.7 s Normal 22.3-36.2 [facility] Comment on above: Performed By: #### P TT, PT ####[facility] Paesjhgsog[address] [place], [place] [address]Dr. Ricardo Rocha TROPONIN, HIGH SENSITIVITYon 06-10-2022 HSTROP 30.9 pg/mL Normal 4.0-51.3 [facility] Comment on above: Result Comment: CUT- OFF POINTS HAVE BEEN ESTABLISHED BASED ON THE FOURTH UNIVERSAL DEFINITIONS OF MYOCARDIALINFARCTION. THE UPPER REFERENCE LIMIT (URL) OF TROPONIN, DEFINED THE 99TH PERCENTILE OFcTnI DISTRIBUTION IN A REFERENCE POPULATION, HAS BEEN CONFIRMED THE DECISION THRESHOLDFOR [place] DIAGNOSIS. Performed By: #### H STROPN, LIPA, CMP, TSH ####[facility] Cuighiztxb[address] [place] [address]Dr. Ricardo Rocha TSHon 06-10-2022 TSH 0.147 uIU/mL Critically low 0.358-3.740 [facility] Comment on above: Performed By: #### H STROPN, LIPA, CMP, TSH ####[facility] Pofkzkmhld[address] [place] [id number]. Ricardo Aj XR FOOT ALINE MIN 3 VIEWSon XR FOOT ALINE MIN 3 VIEWS Normal [facility] XR HAND RT MIN 3Von 06-02-20 XR HAND RT MIN 3V Normal [facility] CULTURE WOUNDon 05-15-2022 CULTURE WOUND Normal [facility] Comment on above: Performed By: #### W OUNDCX ####[facility] Mheoxkjfuz[address] [place], [place] [address]Dr. Ricardo Rocha CBC AUTO DIFFon 2022 BASO # 0.0 103/ul Normal 0.0-0.1 [facility] Comment on above: Performed By: #### C BC ####[facility] Mlvgwptadx0[address] [place], [place] [address]Dr. Ricardo Rocha Basophils/100 WBC (Bld) 0.7 % Normal 0.2-2.0 [facility] Comment on above: Performed By: #### C BC ####[facility] Zejnyizywe[address] [place], [place] [address]Dr. Ricardo Rocha EO # 0.1 103/ul Normal 0.0-0.7 [facility] Comment on above: Performed By: #### C BC ####[facility] Tlffxjnlmh[address] [place], [place] [address]Dr. Ricardo Rocha Eosinophils/100 WBC (Bld) 2.1 % Normal 0.9-7.0 [facility] Comment on above: Performed By: #### C BC ####[facility] [address] [place], [place] [address]Dr. Ricardo Rocha Erythrocyte distribution width (RBC) [Ratio] 13.2 % Normal 11.0-15.0 [facility] Comment on above: Performed By: #### C BC ####[facility] [address] [place], [place] [address]Dr. Ricardo Rocha Hematocrit (Bld) [Volume fraction] 36.6 % Normal 36.0-48.0 [facility] Comment on above: Performed By: #### C BC ####[facility] [address] [place] [id number]. Ricardo Rocha Hemoglobin (Bld) [Mass/Vol] 11.9 g/dL Critically low 12.0-16.0 [facility] Comment on above: Performed By: #### C BC ####[facility] J[address] [place] [id number]. Ricardo Rocha IG # 0.03 10e3/ul Normal 0.00-0.03 [facility] Comment on above: Performed By: #### C BC ####[facility] T[address]wh[address] [place] [id number]. Ricardo Aj IG % 0.5 % Normal 0.0-0.5 [facility] Comment on above: Performed By: #### C BC ####[facility] [address] [place] [address]Dr. Ricardo Rocha LYMPH # 2.1 103/ul Normal 1.2-3.8 [facility] Comment on above: Performed By: #### C BC ####[facility] [address] [place] [id number]. Nanomarcial Rocha Lymphocytes/100 WBC (Bld) 33.8 % Normal 20.5-60.0 [facility] Comment on above: Performed By: #### C BC ####[facility] [address]ft[address] [place] [id number]. Nanomarcial Rocha MANUAL DIFF REQ NO Normal [facility] Comment on above: Performed By: #### C BC ####[facility] W[address]xf[address]vr[address] [place] [id number]. Ricardo Aj MCH (RBC) [Entitic mass] 25.7 pg Critically low 26.7-34.0 [facility] Comment on above: Performed By: #### C BC ####[facility] V[address] [place] [id number]. Ricardo Aj MCHC (RBC) [Mass/Vol] 32.5 g/dL Normal 29.9-35.2 [facility] Comment on above: Performed By: #### C BC ####[facility] H[address]kl[address]mh[address] [place] [id number]. Ricardo Rocha MCV (RBC) [Entitic vol] 79.0 fL Critically low 81.0-99.0 [facility] Comment on above: Performed By: #### C BC ####[facility] [address] [place] [id number]. Ricardo Rocha MONO # 0.4 103/ul Normal 0.3-0.8 [facility] Comment on above: Performed By: #### C BC ####[facility] P[address]wr[address] [place] [id number]. Ricardo Rocha Monocytes/100 WBC (Bld) 6.2 % Normal 1.7-12.0 [facility] Comment on above: Performed By: #### C BC ####[facility] [address] [place], [place] [address]Dr. Ricardo Rocha NEUT # 3.5 103/ul Normal 1.4-6.5 [facility] Comment on above: Performed By: #### C BC ####[facility] [address] [place], [place] [id number]. Ricardo Rocha Neutrophils/100 WBC (Bld) 56.7 % Normal 43.0-75.0 [facility] Comment on above: Performed By: #### C BC ####[facility] [address] [place], [place] [id number]. Ricardo Rocha Platelet mean volume (Bld) [Entitic vol] 10.9 fL Normal 9.5-13.5 [facility] Comment on above: Performed By: #### C BC ####[facility] Grey[address]fiv[address] [place] [id number]. Ricardo Rocha PLT 241 103/ul Normal 150-450 [facility] Comment on above: Performed By: #### C BC ####[facility] Ielnfmikpa[address] [place] [id number]. Ricardo Aj RBC 4.63 106/ul Normal 4.20-5.40 [facility] Comment on above: Performed By: #### C BC ####[facility] [address] [place] [id number]. Ricardo Aj WBC 6.1 103/ul Normal 4.0-11.0 [facility] Comment on above: Performed By: #### C BC ####[facility] Wkoovesgui[address] [place] [id number]. Nanomarcial Rocha PROF CHEM 8 (BAS METB)on Anion gap [Moles/Vol] 11.8 mmol/L Normal [facility] Comment on above: Performed By: #### B MP ####[facility] [address] [place] [address]Dr. Ricardo Aj Calcium [Mass/Vol] 9.2 mg/dL Normal 8.5-10.1 [facility] Comment on above: Performed By: #### B MP ####[facility] [address] [place], [place] [address]Dr. Ricardo Rocha Chloride [Moles/Vol] 99 mmol/L Normal 98-107 [facility] Comment on above: Performed By: #### B MP ####[facility] [address] [place], [place] [address]Dr. Ricardo Aj CO2 [Moles/Vol] 24.7 mmol/L Normal 21.0-32.0 [facility] Comment on above: Performed By: #### B MP ####[facility] [address]upng[address] [place] [address]Dr. Nanomarcial Aj Creatinine [Mass/Vol] 1.48 mg/dL Critically high 0.55-1.02 [facility] Comment on above: Performed By: #### B MP ####[facility] [address] [place] [address]Dr. Ricardo Rocha EGFR-AF BAHRAINI 43 mL/min/1.73m2 Critically low >=60 [facility] Comment on above: Performed By: #### B MP ####[facility] [address] [place] [address]Dr. Ricardo Rocha EGFR-NON AF BAHRAINI 36 mL/min/1.73m2 Critically low >=60 [facility] Comment on above: Performed By: #### B MP ####[facility] [address]wg[address] [place] [phone]. Ricardo Rocha Glucose [Mass/Vol] 431 mg/dL Critically high 74-106 [facility] Comment on above: Performed By: #### B MP ####[facility] [address] [place], [place] [address]Mc. Ricardo Rocha Potassium [Moles/Vol] 4.5 mmol/L Normal 3.5-5.1 [facility] Comment on above: Performed By: #### B MP ####[facility] [address] [place] [id number]. Ricardo Rocha Sodium [Moles/Vol] 131 mmol/L Critically low 136-145 [facility] Comment on above: Performed By: #### B MP ####[facility] [address] [place] [id number]. Ricardo Rocha Urea nitrogen [Mass/Vol] 23.0 mg/dL Critically high 7.0-18.0 [facility] Comment on above: Performed By: #### B MP ####[facility] Ipr[address]kh[address] [place] [id number]. Ricardo Rocha Urea nitrogen/Creatinine [Mass ratio] 15.5 mg/mg Normal [facility] Comment on above: Performed By: #### B MP ####[facility] [address] [place] [id number]. Ricardo Rocha XR TOES ALINE MIN 2 Von 2021 XR TOES ALINE MIN 2 V Normal [facility] HEALTH 01-21-2021 ALLIED HEALTH HNO ID: [id number] Author: RT Parveen(R) Service: ? Author Type: Softball Umpire Type: Allied Health Filed: 01/20/2021 10:30 PM [...] Parveen(R) January 20, 2021 10:29 PM Normal [facility] Basic Metabolic Panlon 01-21 Anion gap [Moles/Vol] 7 mmol/L Low 9-18 [facility] Calcium [Mass/Vol] 8.8 mg/dL Normal 8.5-10.2 [facility] Chloride [Moles/Vol] 99 mmol/L Normal 97-105 [facility] CO2 [Moles/Vol] 25 mmol/L Normal 22-30 [facility] Creatinine [Mass/Vol] 1.51 mg/dL High 0.58-0.96 [facility] eGFR- Amer. 42 Normal [facility] eGFR-All Other Races 35 . Normal [facility] Comment on above: Result Comment: eGFR (Estimated [...] GFR. Glucose [Mass/Vol] 141 mg/dL High 74-99 [facility] Comment on above: Result Comment: The [place] [employer] (ADA) provides guidance for cutoff [...] Standards of Medical Care in Diabetes 2016, [place] [employer]. Diabetes Care. 2016.39(Suppl 1). Potassium [Moles/Vol] 4.7 mmol/L Normal 3.7-5.1 [facility] Sodium [Moles/Vol] 131 mmol/L Low 136-144 [facility] Urea nitrogen [Mass/Vol] 42 mg/dL High 7-21 [facility] CBCon 01-21-2021 Absolute nRBC <0.01 Normal [facility] E[facility] distribution width (RBC) [Ratio] 13.1 % Normal 11.5-15.0 [facility] Hematocrit (Bld) [Volume fraction] 30.0 % Low 36.0-46.0 [facility] Hemoglobin (Bld) [Mass/Vol] 9.5 g/dL Low 11.5-15.5 [facility] MCH 24.4 pG Low 26.0-34.0 [facility] MCHC (RBC) [Mass/Vol] 31.7 g/dL Normal 30.5-36.0 [facility] MCV (RBC) [Entitic vol] 77.1 fL Low 80.0-100.0 [facility] Platelet mean volume (Bld) [Entitic vol] 11.1 fL Normal 9.0-12.7 [facility] Platelets (Bld) [#/Vol] 358 10*3/uL Normal 150-400 [facility] RBC (Bld) [#/Vol] 3.89 10*6/uL Low 3.90-5.20 [facility] WBC (Bld) [#/Vol] 9.64 10*3/uL Normal 3.70-11.00 [facility] CNDSon 01-21-2021 CNDS HNO ID: [id number] Author: Inna Hansen DO Service: Hospital Medicine [...] Team: Attending Provider: Inna Hansen DO Physician Packing Machine Operator: Garrett Simon PA-C Consulting: Taurus Ballard [...] PCP: referred to a new PCP in [place]. Future Appointments Date Time Provider Department Center 01/29/2021 11:40 AM Taurus Ballard MD [facility] The patient's risk for 30-day readmission is determined using the following contributing factors: Pt variables contributing to increased readmission risk: 42 Most Recent (more content not included)... Normal [facility] MRI KIDNEY WO/W IVCONon 06-0 MRI KIDNEY WO/W IVCON * * *Final Report* * * DATE OF EXAM: Jan 20 2021 10:35PM [facility] 0721 - MRI KIDNEY WO/W IVCON / PROCEDURE REASON: Renal cyst * * * * Physician Interpretation * * * * EXAMINATION: MRI ABDOMEN WITHOUT AND WITH IV CONTRAST CLINICAL HISTORY: Renal mass characterization. TECHNIQUE: A renal MRI was performed on a MR system utilizing the torso phased-array coil. Pulse sequences included: axial precontrast T1 weighted in- and cvw-nx-dlftl, axial and coronal HASTE, axial DWI with [...] be communicated with the ordering provider via [employer]™ staff message or phone message by [employer] Support [employer] within 2 business days of report finalization. Algorithms for management of incidental imaging findings can be found on the [facility] Intranet Sharepoint site at: [email or web address] [email or web address] 0Findi ngs%20at%20Imaging/Form s/[email or web address] Shipfitter Apprentice: GUILLE Transcribe Date/Time: Jan 21 2021 8:17A Dictated by : MALLORY AHN MD This examination was interpreted and the report reviewed and electronically signed by: MALLORY AHN MD on Jan 21 2021 8:49AM EST [id number] [id number] Invalid Interpretation Code [facility] Basic Metabolic Panlon 01-20 Anion gap [Moles/Vol] 11 mmol/L Normal 9-18 [facility] Calcium [Mass/Vol] 8.7 mg/dL Normal 8.5-10.2 [facility] ospital Chloride [Moles/Vol] 97 mmol/L Normal 97-105 [facility] CO2 [Moles/Vol] 24 mmol/L Normal 22-30 [facility] Creatinine [Mass/Vol] 1.46 mg/dL High 0.58-0.96 [facility] eGFR- Amer. 44 Normal [facility] ospital eGFR-All Other Races 36 . Normal [facility] Comment on above: Result Comment: eGFR (Estimated [...] GFR. Glucose [Mass/Vol] 149 mg/dL High 74-99 [facility] Comment on above: Result Comment: The [place] [employer] (ADA) provides guidance for cutoff [...] Standards of Medical Care in Diabetes 2016, [place] [employer]. Diabetes Care. 2016.39(Suppl 1). Potassium [Moles/Vol] 3.9 mmol/L Normal 3.7-5.1 [facility] Sodium [Moles/Vol] 132 mmol/L Low 136-144 [facility] ospital Urea nitrogen [Mass/Vol] 53 mg/dL High 7-21 [facility] CBCon 01-20-2021 Absolute nRBC <0.01 Normal <0.01 [facility] Erythrocyte distribution width (RBC) [Ratio] 12.8 % Normal 11.5-15.0 [facility] Hematocrit (Bld) [Volume fraction] 27.7 % Low 36.0-46.0 [facility] Hemoglobin (Bld) [Mass/Vol] 8.9 g/dL Low 11.5-15.5 [facility] MCH 24.5 pG Low 26.0-34.0 [facility] MCHC (RBC) [Mass/Vol] 32.1 g/dL Normal 30.5-36.0 [facility] MCV (RBC) [Entitic vol] 76.3 fL Low 80.0-100.0 [facility] Platelet mean volume (Bld) [Entitic vol] 11.1 fL Normal 9.0-12.7 [facility] Platelets (Bld) [#/Vol] 321 10*3/uL Normal 150-400 [facility] RBC (Bld) [#/Vol] 3.63 10*6/uL Low 3.90-5.20 [facility] WBC (Bld) [#/Vol] 11.05 10*3/uL High 3.70-11.00 [facility] CONSULT PROGon 01-20-2021 CONSULT PROG HNO ID: [id number] Author: Rajendra Cruz MD Service: Nephrology Author Type: Physician Type: Consult Progress Note Filed: 01/20/2021 1:44 PM Note Text: [facility] NEPHROLOGY CONSULT PROGRESS NOTE SERVICE DATE: January [...] 0556 01/17/21 1748 LACT 0.9 0.94 Imagin01/20/21 Kidney - Pending ASSESSMENT AND PLAN Pt [...] DATE: January 20, 2021 1:43 PM PHONE: [phone] FOR AFTER HOUR CONCERNS BETWEEN 7PM - 7AM CONTACT ON-CALL NEPHROLOGY STAFF Normal [facility] THERAPY [facility] 01-20-2021 THERAPY NT HNO ID: [id number] Author: Afia Radford, PT Service: Physical Therapy Author Type: Physical Therapist Type: Therapy (PT/OT/Speech/Resp) Filed: 01/20/2021 3:32 PM Note Text: Physical Therapy Treatment SERVICE DATE: 01/20/2021 SERVICE TIME: 1330 to 1353 ROOM: [place] [address] Recommended Discharge Disposition: Home PT Recommended Discharge [...] 0 Tub/Shower Type: tub shower Laundry: basement, cvdtvumb-kk-alj Equipment Owned: Cane;Standard Walker Prior Functional Level: [...] Diagnosis: Reduced mobility-other Interventions Provided: Gait Training (74840);Therapeutic Exercise (88328) Therapeutic Exercise (82506) Treatment Minutes: 8 Pt performed in supine position: AP, QS, GS x 10 B LE, pt instructed to do every hour while awake on their own. 7 days a week, HS, hip ABD, SAQ, SLR 10-20 reps/ 2-3x/day/ 7 days/week Gait Training (35667) Treatment Minutes: 15 $ Gait Training (07983) Billed Units: 1 unit Training AND education [...] 20, 2021 TIME: (more content not included)... [facility] THERAPY NT HNO ID: [id number] Author: Heidy Wright OT/L Service: Occupational Therapy Author Type: Occupational Therapist Type: Therapy (PT/OT/Speech/Resp) Filed: 01/20/2021 12:15 PM Note Text: Occupational Therapy Treatment SERVICE DATE: 01/20/2021 SERVICE TIME: 1155 to 1205 ROOM: [place] [address] Recommended Discharge Disposition: Home OT Recommended Discharge [...] 0 Tub/Shower Type: tub shower Laundry: basement, enltjpcx-nc-hyi Equipment Owned: Cane;Standard Walker Prior Functional Level: Required Assistance Assistance Required With: Transfers;Cleaning;Laun dry;Meals;Transportatio n;Shopping;Self Care Prior Functional Level Comments: Pt reports the last 6 months not being able to walk, dtfamilia have been carrying her to the bathroom, [...] (generalized);General symptoms and signs-other Interventions Provided: Self Fdc Management (60582) Self Fdc Management (20812) Treatment Minutes: 10 $ Self Fdc Management (94802) Billed Units: 1 unit Training AND education provided in: Benefits of in (more content not included)... [facility] THERAPY NT HNO ID: [id number] Author: Heidy Wright OT/L Service: Occupational Therapy Author Type: Occupational Therapist Type: Therapy (PT/OT/Speech/Resp) Filed: 01/20/2021 8:24 AM Note Text: OCCUPATIONAL THERAPY MISSED VISIT SERVICE DATE: 01/20/2021 SERVICE TIME: 0820 to 0820 ROOM: [place] [address] Attempted Treatment. Patient not seen due to Declined. Pt states, It's too early when OT attempted to work with her. Will re-attempt as schedule permits. SIGNATURE: Heidy Wright OT/L PATIENT NAME: Aislinn Wheeler DATE: January 20, 2021 TIME: 8:24 AM Normal [facility] Basic Metabolic Panlon 01-19 Anion gap [Moles/Vol] 11 mmol/L Normal 9-18 [facility] Calcium [Mass/Vol] 8.5 mg/dL Normal 8.5-10.2 [facility] ospital Chloride [Moles/Vol] 93 mmol/L Low 97-105 [facility] CO2 [Moles/Vol] 24 mmol/L Normal 22-30 [facility] Creatinine [Mass/Vol] 1.92 mg/dL High 0.58-0.96 [facility] eGFR- Amer. 32 Normal [facility] ospital eGFR-All Other Races 26 . Normal [facility] Comment on above: Result Comment: eGFR (Estimated [...] ospital Comment on above: Result Comment: The [place] [employer] (ADA) provides guidance for cutoff [...] Standards of Medical Care in Diabetes 2016, [place] [employer]. Diabetes Care. 2016.39(Suppl 1). Potassium [Moles/Vol] 4.2 mmol/L Normal 3.7-5.1 [facility] Sodium [Moles/Vol] 128 mmol/L Low 136-144 [facility] Urea nitrogen [Mass/Vol] 77 mg/dL High 7-21 [facility] Anion gap [Moles/Vol] 11 mmol/L Normal 9-18 [facility] Calcium [Mass/Vol] 8.3 mg/dL Low 8.5-10.2 [facility] Chloride [Moles/Vol] 88 mmol/L Low 97-105 [facility] CO2 [Moles/Vol] 23 mmol/L Normal 22-30 [facility] Creatinine [Mass/Vol] 1.93 mg/dL High 0.58-0.96 [facility] eGFR- Amer. 32 Normal [facility] eGFR-All Other Races 26 . Normal [facility] Comment on above: Result Comment: eGFR [...] GFR. Glucose [Mass/Vol] 292 mg/dL High 74-99 [facility] Comment on above: Result Comment: The [place] [employer] (ADA) provides guidance for cutoff [...] Standards of Medical Care in Diabetes 2016, [place] [employer]. Diabetes Care. 2016.39(Suppl 1). Potassium [Moles/Vol] 3.8 mmol/L Normal 3.7-5.1 [facility] Sodium [Moles/Vol] 122 mmol/L Low 136-144 [facility] Urea nitrogen [Mass/Vol] 82 mg/dL High 7-21 [facility] CBCon 01-19-2021 Absolute nRBC <0.01 Normal <0.01 [facility] Erythrocyte distribution width (RBC) [Ratio] 12.8 % Normal 11.5-15.0 [facility] Hematocrit (Bld) [Volume fraction] 27.5 % Low 36.0-46.0 [facility] Hemoglobin (Bld) [Mass/Vol] 9.1 g/dL Low 11.5-15.5 [facility] MCH 24.9 pG Low 26.0-34.0 [facility] MCHC (RBC) [Mass/Vol] 33.1 g/dL Normal 30.5-36.0 [facility] MCV (RBC) [Entitic vol] 75.1 fL Low 80.0-100.0 [facility] Platelet mean volume (Bld) [Entitic vol] 11.2 fL Normal 9.0-12.7 [facility] Platelets (Bld) [#/Vol] 297 10*3/uL Normal 150-400 [facility] RBC (Bld) [#/Vol] 3.66 10*6/uL Low 3.90-5.20 [facility] WBC (Bld) [#/Vol] 12.14 10*3/uL High 3.70-11.00 [facility] CONSULT PROGon 01-19-2021 CONSULT PROG HNO ID: [id number] Author: Rajendra Cruz MD Service: Nephrology Author Type: Physician Type: Consult Progress Note Filed: 01/19/2021 2:40 PM Note Text: [facility] NEPHROLOGY CONSULT PROGRESS NOTE SERVICE DATE: January [...] DATE: January 19, 2021 2:27 PM PHONE: [phone] FOR AFTER HOUR CONCERNS BETWEEN 7PM - 7AM CONTACT ON-CALL NEPHROLOGY STAFF [facility] NUTRITIONon 01-19-2021 NUTRITION HNO ID: [id number] Author: Michelle Louis RD Service: Nutrition Therapy [...] history;Intake records;Patient/family self-report;Weight loss;Nausea;Vomiting Estimated kilocalorie needs: 6122-6589 Calorie Calculation Method: 30-35 kcals/kg Estimated protein [...] is a 60 y/o F with a H sig for DMII, COPD who presents with [...] January 19, 2021 TIME: 10:59 AM PAGER: [phone] I have reviewed the nutritional assessment note documented by the recruitment intern and I personally participated in the miller components. I have discussed the case and nutritional management of the patient's care. Michelle Louis MS,RD,LD,CNSC [facility] THERAPY on 01-19-2021 THERAPY NT HNO ID: [id number] Author: Afia Radford, PT Service: Physical Therapy Author Type: Physical Therapist Type: Therapy (PT/OT/Speech/Resp) Filed: 01/19/2021 2:57 PM Note Text: Physical Therapy Evaluation SERVICE DATE: 01/19/2021 SERVICE TIME: 1307 to 1331 ROOM: [place] [address] Recommended Discharge Disposition: Home PT Anticipated Discharge [...] 0 Tub/Shower Type: tub shower Laundry: basement, ilewvhkz-ez-ktp Equipment Owned: Cane;Standard Walker Prior Functional Level: [...] Diagnosis: Reduced mobility-other Interventions Provided: Evaluation;Therapeutic Exercise (76539);Gait Training (86682) $ Evaluation-Low (98725) Billed Units: 1 unit Therapeutic Exercise (76407) Treatment Minutes: 1 Patient performed in seated position: Marching, AP/HR, hip ABD, LAQ x10 B LE- instructions written on white board for pt to complete on her own. Gait Training (63121) Treatment Minutes: 8 $ Gait Training (68176) Billed Units: 1 unit Training AND education [...] present during visit: Aleksander Syed, SPT Normal [facility] Basic Metabolic Panlon 01-18 Anion gap [Moles/Vol] 13 mmol/L Normal 9-18 [facility] Calcium [Mass/Vol] 8.8 mg/dL Normal 8.5-10.2 [facility] ospital Chloride [Moles/Vol] 88 mmol/L Low 97-105 [facility] CO2 [Moles/Vol] 22 mmol/L Normal 22-30 [facility] Creatinine [Mass/Vol] 2.21 mg/dL High 0.58-0.96 [facility] eGFR- Amer. 27 Normal [facility] ospital eGFR-All Other Races 23 . Normal [facility] Comment on above: Result Comment: eGFR (Estimated [...] GFR. Glucose [Mass/Vol] 253 mg/dL High 74-99 [facility] Comment on above: Result Comment: The [place] [employer] (ADA) provides guidance for cutoff [...] Standards of Medical Care in Diabetes 2016, [place] [employer]. Diabetes Care. 2016.39(Suppl 1). Potassium [Moles/Vol] 3.7 mmol/L Normal 3.7-5.1 [facility] Sodium [Moles/Vol] 123 mmol/L Low 136-144 [facility] Urea nitrogen [Mass/Vol] 93 mg/dL High 7-21 [facility] Anion gap [Moles/Vol] 16 mmol/L Normal 9-18 [facility] Calcium [Mass/Vol] 9.0 mg/dL Normal 8.5-10.2 [facility] Chloride [Moles/Vol] 93 mmol/L Low 97-105 [facility] CO2 [Moles/Vol] 21 mmol/L Low 22-30 [facility] Creatinine [Mass/Vol] 2.59 mg/dL High 0.58-0.96 [facility] eGFR- Amer. 23 Normal [facility] ospital eGFR-All Other Races 19 . Normal [facility] Comment on above: Result Comment: eGFR (Estimated [...] GFR. Glucose [Mass/Vol] 130 mg/dL High 74-99 [facility] Comment on above: Result Comment: The [place] [employer] (ADA) provides guidance for cutoff [...] Standards of Medical Care in Diabetes 2016, [place] [employer]. Diabetes Care. 2016.39(Suppl 1). Potassium [Moles/Vol] 4.7 mmol/L Normal 3.7-5.1 [facility] Sodium [Moles/Vol] 130 mmol/L Low 136-144 [facility] Urea nitrogen [Mass/Vol] 97 mg/dL High 7-21 [facility] CASE MGT INIT [facility] 2020 CASE MGT [facility] HNO ID: [id number] Author: Nicol Landin, REY Service: ? 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 A Patient/Immunochemist Stated Goals: To have reduction in pain;To [...] scheduled Advance Directive: Current Advance Directive: None Inspector Circuitry Negative Attempted to Assist with AD Completion: Yes [...] Walker Has the Patient Been in a Group Home Facility in the Past 30 days?: No [...] and plan for meeting these needs: Patient's [id number]-tcw and son live close by and come over to help often Patient's perception of need for this admission: necessary Medication Adherance I am convinced of the importance of my prescription medication: 0 - Agree Completely I worry that my prescription medication will do more harm than good to me : 0 - Disagree Completely I feel financially burdened by my pfa-tr-xhextr expenses for my prescription medication:: 0 - Disagree Completely Risk Score: 0 Patient is categorized as: Low risk < 2 Are you interested in bedside delivery of your medications? Yes Is Patient Psychosocially Complex?: Yes, refer to Social Work ASSESSMENT AND PLAN: Medical Needs: Medical Needs: Two or more chronic diseases Psychosocial Needs: Psychosocial Needs: None FREEDOM OF CHOICE EXPLAINED: [place] of Choice Given: No Reason Not Given: [...] and hospitalized about 1 month ago in [place] but no resolution of her symptoms. She [...] 18, 2021 TIME: 10:51 AM PAGER/CONTACT #: [phone] [facility] 01-18-2021 Absolute nRBC <0.01 Normal <0.01 [facility]th[facility] distribution width (RBC) [Ratio] 13.0 % Normal 11.5-15.0 [facility] Hematocrit (Bld) [Volume fraction] 31.2 % Low 36.0-46.0 [facility] Hemoglobin (Bld) [Mass/Vol] 9.9 g/dL Low 11.5-15.5 [facility] MCH 24.4 pG Low 26.0-34.0 [facility] MCHC (RBC) [Mass/Vol] 31.7 g/dL Normal 30.5-36.0 [facility] MCV (RBC) [Entitic vol] 77.0 fL Low 80.0-100.0 [facility] Platelet mean volume (Bld) [Entitic vol] 10.8 fL Normal 9.0-12.7 [facility] l Platelets (Bld) [#/Vol] 310 10*3/uL Normal 150-400 [facility] RBC (Bld) [#/Vol] 4.05 10*6/uL Normal 3.90-5.20 [facility] WBC (Bld) [#/Vol] 17.03 10*3/uL High 3.70-11.00 [facility] CONSULTon 01-18-2021 CONSULT HNO ID: [id number] Author: Annie Trinidad DO Service: Hypertension AND [...] Noted a no-show appointment to urology at [facility]. She also reports that she has [...] for n (more content not included)... Normal [facility] CONSULT HNO ID: [id number] Author: Taurus Ballard MD Service: Urology Author Type: Physician Type: Consults Filed: 01/18/2021 8:27 AM Note Text: [facility] UROLOGY CONSULT NOTE NAME: Aislinn Wheeler BED: COUNT [facility]CLUDES THE [id number] SERVICE DATE: 01/18/2021 SERVICE TIME: 8:21 AM [...] the pa (more content not included)... Normal [facility] Creatinine,Urine,Ranon 01-18 Creatinine,Urine,Ran 33.5 mg/dL Normal 20-300 [facility] Comment on above: Performed By: #### U SAUNDRA UBERNADETTE, UCRR ####[facility] [place], [place] [phone] Magnesiumon 01-18-2021 Magnesium [Mass/Vol] 1.9 mg/dL Normal 1.7-2.3 [facility] NURSING PROGon 01-18-2021 NURSING PROG HNO ID: [id number] Author: Barbara Spicer RN Service: ? Author Type: Registered Nurse Type: Nursing Progress Note Filed: 01/18/2021 10:28 AM Note Text: Nursing Progress Note Patient Name: Aislinn Wheeler Patient Location: [place] [address]/COUNT INCLUDES THE [facility] Daily Note:pt report given to pete LE. Pt VSS. Pt belongings packed. This note was completed by: Barbara Spicer Normal [facility] Osmolalityon 01-18-2021 Osmolality [Osmolality] 298 mosm/kg Normal 275-300 [facility] Comment on above: Performed By: #### O SM ####[facility] [place], [place] [phone] Osmolality, Urineon 01-19-20 21 Osmolality, Urine 273 mOsm/kg Normal 50-1200 [facility]ital Comment on above: Performed By: #### U SAUNDRA, UOSM, UCRR ####[facility] [address] [place], [place] [phone] Sepsis Lactateon 01-18-2021 Sepsis Lactate 0.9 mmol/L Normal <2.1 [facility] Sodium,Urine,Randomon 2020 Sodium (U) [Moles/Vol] 32 mmol/L Normal 14-216 [facility] Comment on above: Performed By: #### U FRANK ARGUELLO, UCRR ####[facility] [place], [place] [phone] THERAPY NTon 01-18-2021 THERAPY NT HNO ID: [id number] Author: Wendy Montes De Oca OT/Broderick Service: Occupational Therapy Author Type: Occupational Therapist Type: Therapy (PT/OT/Speech/Resp) Filed: 01/18/2021 1:10 PM Note Text: Occupational Therapy Evaluation SERVICE DATE: 01/18/2021 SERVICE TIME: 853 to 914 ROOM: [place] [address] Recommended Discharge Disposition: Home OT Recommended Discharge [...] 0 Tub/Shower Type: tub shower Laundry: basement, etpkkufy-ch-tiv Equipment Owned: Cane;Standard Walker CURRENT FUNCTIONAL STATUS: [...] and signs-other Interventions Provided: Evaluation $ Evaluation-Moderate (01380) Billed Units: 1 unit Training and education [...] therapy evaluation/treatment. SIGNATURE: Wendy Montes De Oca OT/L PATIENT NAME: Aislinn Wheeler DATE: January 18, 2021 TIME: 1:06 PM [facility] Urine Cultureon 01-18-2021 Bacteria identified Cx Nom (U) Sp. Request/Comment: - Specimen received in preservative Culture Result - No growth (<1,000 CFU/ml) [facility] Comment on above: Performed By: #### U RCUL ####[address] [phone] Blood Cultureon 01-17-2021 Bacteria identified Cx Nom (Bld) Culture Result - No growth 5 days Normal [facility] Comment on above: Performed By: #### B LCUL ####[address] [phone] C-Reactive Proteinon 021 C-Reactive Protein 32.4 mg/dL High <0.9 [facility]spital Comment on above: Performed By: #### W SR ####[address] [phone] CBC and Differentialon 01-17 Abs Baso <0.03 Normal <0.11 [facility] Abs Eosin <0.03 Normal <0.46 [facility] Abs [place] 0.73 k/uL Normal <0.87 [facility] Abs Neut 14.70 k/uL High 1.45-7.50 [facility] Absolute nRBC <0.01 [address] <[address] Basophils/100 WBC (Bld) 0.1 % Normal [facility] DTYPE Auto Diff Normal [facility] Eosinophils/100 WBC (Bld) 0.0 % Normal [facility] Erythrocyte distribution width (RBC) [Ratio] 13.1 % Normal 11.5-15.0 [facility] Hematocrit (Bld) [Volume fraction] 35.1 % Low 36.0-46.0 [facility] Hemoglobin (Bld) [Mass/Vol] 11.3 g/dL Low 11.5-15.5 [facility] Lymphocytes (Bld) [#/Vol] 1.88 10*3/uL Normal 1.00-4.00 [facility] Lymphocytes/100 WBC (Bld) 10.8 % Normal [facility] MCH 24.2 pG Low 26.0-34.0 [facility] MCHC (RBC) [Mass/Vol] 32.2 g/dL Normal 30.5-36.0 [facility] MCV (RBC) [Entitic vol] 75.2 fL Low 80.0-100.0 [facility] Monocytes/100 WBC (Bld) 4.2 % Normal [facility] Neutrophils/100 WBC (Bld) 84.9 % Normal [facility] NRBCs 0.0 /100 WBC Normal 0 [facility] l Platelet mean volume (Bld) [Entitic vol] 11.4 fL Normal 9.0-12.7 [facility] Platelets (Bld) [#/Vol] 345 10*3/uL Normal 150-400 [facility] RBC (Bld) [#/Vol] 4.67 10*6/uL Normal 3.90-5.20 [facility] WBC (Bld) [#/Vol] 17.33 10*3/uL High 3.70-11.[address] [facility] [address] ABD/PEL WO IVCONon 2020 CT ABD/PEL WO IVCON * * *Final Report* * * DATE OF EXAM: Jan 17 2021 8:05PM [facility] 0531 - CT ABD/PEL WO IVCON / PROCEDURE REASON: Mass or lump, abdomen pelvis * * * * Physician Interpretation * * * * CT OF CHEST, ABDOMEN AND PELVIS WITHOUT CONTRAST CLINICAL HISTORY: Aspiration (accession [id number]), Mass or lump, abdomen pelvis (accession [id number]) Concern for possible source of infection vs [...] report for details. Pelvic bones are intact. Physician Obstetrician (topogram) images: Unremarkable. IMPRESSION: Left upper lobe [...] be communicated with the ordering provider via [employer]™ staff message or phone message by Imaging Support Services within 2 business days of report finalization. ACTIONABLE RESULT: FOLLOW-UP Acuity: Actionable Findings: Kidneys/Ureters/Bladder /Adrenal Routing Code: GU_1 Recommendation: MRI KIDNEY WO/W IVCON Time Frame: non-urgent, but prompt follow-up. COMMUNICATION: Results will be communicated with the ordering provider via [employer]™ staff message or phone message by [facility] Support [facility] within 2 business days of report finalization. Algorithms for management of incidental imaging findings can be found on the [facility] Intranet Sharepoint site at: [email or web address]/ Managing%20Incidental%2 0Findi ngs%20at%20Imaging/Form s/AllItems.aspx Shipfitter Apprentice: GUILLE Transcribe Date/Time: Jan 17 2021 8:20P Dictated by : PADILLA JIM MD This examination was interpreted and the report reviewed and electronically signed by: PADILLA JIM MD on Jan 17 2021 8:43PM EST [id number] ACTIONABLE Invalid Interpretation Code [facility] CT BRAIN WO IVCONon 01-18-20 CT BRAIN WO IVCON * * *Final Report* * * DATE OF EXAM: Jan 17 2021 4:26PM [facility] 0504 - CT BRAIN [...] base and imaged soft tissues are unremarkable. Physician Obstetrician (topogram) images: No additional findings. IMPRESSION: No acute intracranial hemorrhage or mass effect is seen Shipfitter Apprentice: PSCB Transcribe Date/Time: Jan 17 2021 4:47P Dictated by : JOHN THAKKAR MD This examination was interpreted and the report reviewed and electronically signed by: JOHN THAKKAR MD on Jan 17 2021 4:48PM EST [id number] [facility] CT CERVICAL SPINE WO IVCONon 01-17-2021 CT CERVICAL SPINE WO IVCON * * *Final Report* * * DATE OF EXAM: Jan 17 2021 4:26PM [facility] 0505 - CT CERVICAL [...] Counting reference: Craniocervical junction. Anatomic Variants: None. Physician Obstetrician (topogram) images: No additional findings. Alignment: Straightening [...] vertebrae with counting from the craniocervical junction. Shipfitter Apprentice: GUILLE Transcribe Date/Time: Jan 17 2021 4:49P Dictated by : JOHN THAKKAR MD This examination was interpreted and the report reviewed and electronically signed by: JOHN THAKKAR MD on Jan 17 2021 4:53PM EST [id number] Normal [facility] CT CHEST WO IVCONon 01-18-20 CT CHEST WO IVCON * * *Final Report* * * DATE OF EXAM: Jan 17 2021 8:05PM [facility] 0541 - CT CHEST WO IVCON / PROCEDURE REASON: Aspiration * * * * Physician Interpretation * * * * CT OF CHEST, ABDOMEN AND PELVIS WITHOUT CONTRAST CLINICAL HISTORY: Aspiration (accession [id number]), Mass or lump, abdomen pelvis (accession [id number]) Concern for possible source of infection vs [...] report for details. Pelvic bones are intact. Physician Obstetrician (topogram) images: Unremarkable. IMPRESSION: Left upper lobe [...] be communicated with the ordering provider via [employer]™ staff message or phone message by Imaging Support Services within 2 business days of report finalization. ACTIONABLE RESULT: FOLLOW-UP Acuity: Actionable Findings: Kidneys/Ureters/Bladder /Adrenal Routing Code: GU_1 Recommendation: MRI KIDNEY WO/W IVCON Time Frame: non-urgent, but prompt follow-up. COMMUNICATION: Results will be communicated with the ordering provider via [employer]™ staff message or phone message by Imaging Support Services within 2 business days of report finalization. Algorithms for management of incidental imaging findings can be found on the [facility] Intranet Sharepoint site at: [email or web address] [email or web address]/ Managing%20Incidental%2 0Findi ngs%20at%20Imaging/Form s/AllItems.aspx Shipfitter Apprentice: GUILLE Transcribe Date/Time: Jan 17 2021 8:20P Dictated by : PADILLA JIM MD This examination was interpreted and the report reviewed and electronically signed by: PADILLA JIM MD on Jan 17 2021 8:43PM EST [id number] ACTIONABLE Invalid Interpretation Code [facility] CT LUMBAR SPINE WO IVCONon 0 01-17-2021 CT LUMBAR SPINE WO IVCON * * *Final Report* * * * * * SEE BOTTOM OF REPORT FOR ADDENDED TEXT * * * DATE OF EXAM: Jan 17 2021 5:34PM [facility] 0508 - CT LUMBAR [...] are 5 lumbar-type vertebrae. Anatomic variant: None. Physician Obstetrician (topogram) images: No additional findings. Alignment: Alignment [...] on 01/17/2021 6:08 PM via verbal communication. Shipfitter Apprentice: GUILLE Transcribe Date/Time: Jan 17 2021 6:05P Dictated by : JOHN THAKKAR MD This examination was interpreted and the report reviewed and electronically signed by: JOHN THAKKAR MD on Jan 17 2021 6:01PM EST This document has been addended by: JOHN THAKKAR MD on Jan 17 2021 6:08PM EST [id number] [facility] CT THORACIC SPINE WO IVCONon 01-17-2021 CT THORACIC SPINE WO IVCON * * *Final Report* * * DATE OF EXAM: Jan 17 2021 5:34PM [facility] 0514 - CT THORACIC [...] the purposes of this report, anatomic variants: Physician Obstetrician (topogram) images: No additional findings. Alignment: Alignment [...] and assume there are 5 lumbar-type vertebrae. Shipfitter Apprentice: PSCB Transcribe Date/Time: Jan 17 2021 6:03P Dictated by : JOHN THAKKAR MD This examination was interpreted and the report reviewed and electronically signed by: JOHN THAKKAR MD on Jan 17 2021 6:13PM EST [id number] Normal [facility] Comp Metabolic Panelon 01-17 Albumin [Mass/Vol] 3.0 g/dL Low 3.9-4.9 [facility] ALP [Catalytic activity/Vol] 162 U/L High 34-123 [facility] ALT [Catalytic activity/Vol] 7 U/L Normal 7-38 [facility] Anion gap [Moles/Vol] 17 mmol/L Normal 9-18 [facility] AST [Catalytic activity/Vol] 15 U/L Normal 13-35 [facility] Bilirubin [Mass/Vol] 0.4 mg/dL Normal 0.2-1.3 [facility] Calcium [Mass/Vol] 9.6 mg/dL Normal 8.5-10.2 [facility] Chloride [Moles/Vol] 83 mmol/L Low 97-105 [facility] CO2 [Moles/Vol] 20 mmol/L Low 22-30 [facility] ital Creatinine [Mass/Vol] 2.93 mg/dL High 0.58-0.96 [facility] eGFR- Amer. 20 Normal [facility]ital eGFR-All Other Races 16 . Normal [facility] Comment on above: Result Comment: eGFR (Estimated [...] GFR. Glucose [Mass/Vol] 216 mg/dL High 74-99 [facility] Comment on above: Result Comment: The [place] [employer] (ADA) provides guidance for cutoff [...] Standards of Medical Care in Diabetes 2016, [place] [employer]. Diabetes Care. 2016.39(Suppl 1). Potassium [Moles/Vol] 5.5 mmol/L High 3.7-5.1 [facility] Protein [Mass/Vol] 9.5 g/dL High 6.3-8.0 [facility] Sodium [Moles/Vol] 120 mmol/L Low 136-144 [facility] Comment on above: Result Comment: Resu lt checked and verified Urea nitrogen [Mass/Vol] 104 mg/dL High 7-21 [facility] ED NOTEon 01-17-2021 ED NOTE HNO ID: [id number] Author: Prerna Luke RN Service: ? Author Type: Registered Nurse Type: ED Notes Filed: 01/17/2021 9:32 PM Note Text: Report called to 4E RN. Patient stable for transport at this time. [facility] ED NOTE HNO ID: [id number] Author: Prerna Luke RN Service: ? Author Type: Registered Nurse Type: ED Notes Filed: 01/17/2021 9:20 PM Note Text: 16Fr chaves inserted with 500 cc urine immediately drained. Patient tolerated well. [facility] ED NOTE HNO ID: [id number] Author: Prerna Luke RN Service: ? Author Type: Registered Nurse Type: ED Notes Filed: 01/17/2021 7:22 PM Note Text: BC obtained by lab. ABX infusing at this time. [facility] ED NOTE HNO ID: [id number] Author: Prerna Luke RN Service: ? Author Type: Registered Nurse Type: ED Notes Filed: 01/17/2021 7:06 PM Note Text: This RN and 2 medics unable to straight stick patient for blood or draw from existing IVs. Lab will draw one set of BC; GIANNI Tucker notified that only one set will be obtained. [facility] ED NOTE HNO ID: [id number] Author: Prerna Luke RN Service: ? Author Type: Registered Nurse Type: ED Notes Filed: 01/17/2021 4:25 PM Note Text: XR at bedside [facility] ED NOTE HNO ID: [id number] Author: Prerna Luke RN Service: ? Author Type: Registered Nurse Type: ED Notes Filed: 01/17/2021 4:03 PM Note Text: covid swab obtained and walked to lab. [facility] ED NOTE HNO ID: [id number] Author: Bharat Patterson RN Service: ? Author [...] time Reports oral intake has been poor [facility] ED PROV NOTEon 01-17-2021 ED PROV NOTE HNO ID: [id number] Author: Garrett Simon PA-C Service: Emergency Medicine Author Type: Physician Packing Machine Operator Type: ED Provider Notes Filed: 01/17/2021 9:27 PM Note Text: Attestation signed by Cory Crawley III, MD at 01/18/2021 12:06 PM Attending Note I have personally performed a face to face assessment of the patient and have reviewed the PA/VALET RUNNER note. My miller findings include: This is [...] significant midlin (more content not included)... Normal [facility] HISTORY PHYSICALon HISTORY PHYSICAL HNO ID: [id number] Author: Trevor Porras MD Service: Hospital Medicine Author Type: Physician Type: HANDP Filed: 01/17/2021 10:12 PM Note Text: DEPARTMENT OF HOSPITAL MEDICINE HISTORY AND PHYSICAL EXAM SERVICE DATE: 01/17/2021 Code Status: Not on file SERVICE TIME: 10:00 PM Primary Care Physician: Claudia Pcp NIGHT AND WEEKEND COVERAGE: HOLT COVERAGE: Days: [phone], please contact via Avocado™ SecureWebSafetysage Nights: [phone], please page CC Hospitalist Night coverage pager [phone] Subjective CHIEF COMPLAINT: Generalized weakness, falls HPI: [...] Most recen (more content not included)... Normal [facility] Intermed Rapid COVIDon 01-17 SARS-CoV-2 (COVID-19) RNA ADRIEL+probe Ql (Unsp spec) UPPER RESPIRATORY TRACT SWAB Normal [facility] Comment on above: Performed By: #### I TCOVD ####[facility] [address] [place], [place] [phone] SARS-CoV-2 (COVID-19) RNA ADRIEL+probe Ql (Unsp spec) Negative for COVID19 (SARS CoV2) by RT-PCR or equivalent method. Normal Negative for COVID19 (SARS CoV2) by RT-PCR or equivalent method. [facility] Comment on above: Result Comment: This test was developed and its performance characteristics determined by [facility]'s [facility] [place]. This test has been authorized by FDA under an Emergency Use Authorization (EUA). This test has been validated in accordance with the FDA's Guidance Document Policy for Diagnostics Testing in Laboratories Certified to Perform High Complexity Testing under CLIA prior to Emergency use Authorization for Coronavirus Disease 2019 during the Public Health Emergency issued on October 19, 2019. Test performed by [facility], [facility] [place], [address] [place], [place] [address]. Performed By: #### I TCOVD ####[place] [id number] [place], [place] [phone] Magnesiumon 01-17-2021 Magnesium [Mass/Vol] 2.0 mg/dL Normal 1.7-2.3 [facility] NT Pro BNPon 01-17-2021 PRO B Natr Peptide 394 pg/mL High <125 [facility] Sed Rate Westergrenon 2020 Sed Rate Westergren 124 mm/hr High 0-20 [facility] Comment on above: Performed By: #### W SR ####[place] [id number] [place], [place] [phone] TSHon 01-17-2021 TSH Qn 0.615 m[IU]/L Normal 0.270-4.200 [facility] Troponin Ton 01-17-2021 Troponin T.cardiac [Mass/Vol] 0.023 ug/L Normal 0.000-0.029 [facility] Urinalysis with Microscopico n 01-17-2021 Bacteria Present Critically abnormal 0 [facility] Bilirubin, Urine Negative Normal Negative [facility] pital Cast SEE COMMENT Normal 0 [facility] Comment on above: Result Comment: 0 Clarity (U) Turbid Critically abnormal Clear [facility] Color (U) Yellow Normal Yellow [facility] Glucose Ql (U) Negative Normal Negative [facility] Hemoglobin/Blood,Ur 2+ Critically abnormal Negative [facility] Ketones Ql (U) Negative Normal Negative [facility] Leukest 3+ Critically abnormal Negative [facility] Nitrite Ql (U) Positive Critically abnormal Negative [facility] pH (U) 8.5 [pH] High 5.0-8.0 [facility] Protein, Urine 2+ Critically abnormal Negative [facility] RBC 3-5 Critically abnormal 0-3 [facility] Specific [place], Ur 1.013 Normal 1.005-1.030 [facility] Urobilinogen Qn (U) 0.2 {Madeleine'U}/dL Normal 0.2-1.0 [facility] WBC (U) [#/Vol] /uL Critically abnormal 0-5 [facility] Urine Cultureon 01-17-2021 Bacteria identified Cx Nom [...] F Ertapenem SUSCEPTIBLE <=0.5 F Critically abnormal [facility] Comment on above: Performed By: #### U RCUL ####[facility] [address] [place], [place] [phone] XR CHEST 1V FRONTAL PORTon 0 01-17-2021 [...] exam with no evidence of acute disease. Shipfitter Apprentice: PSCB Transcribe Date/Time: Jan 17 2021 4:40P Dictated by : FLASH WOODS MD This examination was interpreted and the report reviewed and electronically signed by: FLASH WOODS MD on Jan 17 2021 4:41PM EST [id number] Normal [facility] Vital Signs Date Time Vital Sign Value Performing Clinician Facility 10-25-2023 15:12-0500 Blood Pressure Location [facility] 10-25-2023 15:12-0500 Body temperature 96.8 [degF] [facility]Y AR[facility] 10-25-2023 15:12-0500 Diastolic blood pressure 78 mm[Hg] HEIDY ARNOLD [facility] 10-25-2023 15:12-0500 Heart rate 86 /min HEIDY ARNOLD [facility] 10-25-2023 15:12-0500 Systolic blood pressure 122 mm[Hg] HEIDY ARNOLD [facility] 08-01-2023 15:00-0500 Body height 154.94 cm [facility] 06-08-2023 13:00-0400 Body height 154.94 cm [facility] Other [facility] Other 06-08-2023 13:00-0400 Body mass index (BMI) [Ratio] 25.37 kg/m2 [facility] Other [facility] Other 06-08-2023 13:00-0400 Body weight 60.92 kg Tondra Mapus Other [facility] Other 06-08-2023 13:00-0400 Diastolic blood pressure 66 mm[Hg] Tondra Mapus Other [facility] Other 06-08-2023 13:00-0400 Respiratory rate 18 /min Tondra Mapus Other [facility] Other 06-08-2023 13:00-0400 SaO2% (BldA) [Mass fraction] 100 % Tondra Mapus Other [facility] Other 06-08-2023 13:00-0400 Systolic blood pressure 107 mm[Hg] Tondra Mapus Other [facility] Other 05-18-2023 11:00-0400 Body height 154.94 cm Tondra Mapus Other [facility] Other 05-18-2023 11:00-0400 Body mass index (BMI) [Ratio] 24.69 kg/m2 Tondra Mapus Other [facility] Other 05-18-2023 11:00-0400 Body weight 59.29 kg Tondra Mapus Other [facility] Other 05-18-2023 11:00-0400 Diastolic blood pressure 96 mm[Hg] Tondra Mapus Other [facility] Other 05-18-2023 11:00-0400 Respiratory rate 18 /min Tondra Mapus Other [facility] Other 05-18-2023 11:00-0400 SaO2% (BldA) [Mass fraction] 97 % Sara Augustine Other [facility] Other 05-18-2023 11:00-0400 Systolic blood pressure 161 mm[Hg] Sara Dumontus Other [facility] Other 02-22-2023 08:34-0400 Blood Pressure Location Lisa Lue [facility] 02-22-2023 08:34-0400 Diastolic blood pressure 66 mm[Hg] Lisa Lue [facility] 02-22-2023 08:34-0400 Heart rate 76 /min Lisa Lue [facility] 02-22-2023 08:34-0400 Systolic blood pressure 106 mm[Hg] Lisa Lue [facility] 12-27-2022 16:00-0400 Body height 154.94 cm Eli [facility] Other [employer] Other 12-27-2022 16:00-0400 Body mass index (BMI) [Ratio] 26.11 kg/m2 [employer] Other [facility] [employer] Other 12-27-2022 16:00-0400 Body temperature 96.5 [degF] [employer] Other [employer] Other 12-27-2022 16:00-0400 Body weight 62.69 kg Eli [employer] Other [employer] Other 12-27-2022 16:00-0400 Diastolic blood pressure 98 mm[Hg] Eli Sprague Other [email or web address] [facility] [employer] Other 12-27-2022 16:00-0400 Respiratory rate 18 /min Eli Sprague Other [employer] Other 12-27-2022 16:00-0400 SaO2% (BldA) [Mass fraction] 98 % Eli Sprague Other [email or web address] [facility] [employer] Other 12-27-2022 16:00-0400 Systolic blood pressure 151 mm[Hg] Eli Sprague Other [facility] [employer] Other 09-21-2022 08:42-0500 Blood Pressure Location Lisa Lue [facility] 09-21-2022 08:42-0500 Diastolic blood pressure 67 mm[Hg] Lisa Lue [facility] 09-21-2022 08:42-0500 Heart rate 74 /min Lisa Lue [facility] 09-21-2022 08:42-0500 Systolic blood pressure 103 mm[Hg] Lisa Lue [facility] Encounters Encounter Date Encounter Type Care Provider Facility Start: 12-21-2023 End: 12-21-2023 ambulatory LATOSHA AICHHOLZ Not Available Start: 12-13-2023 End: 12-13-2023 ambulatory SWETA LI [facility] Start: 11-16-2023 End: 11-16-2023 ambulatory LATOSHA AICHHOLZ Not Available Start: 11-06-2023 Sotero Barreto RN [facility] Comment on above: 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; Complex regional pain syndrome type 1 of right upper extremity Start: 11-02-2023 ambulatory PA-C HEIDY Noel acility:[facility] [place] Start: 10-25-2023 End: 10-26-2023 ambulatory PA-C HEIDY ARNOLD Facility:[facility] [place] Start: 10-25-2023 End: 10-25-2023 Patient encounter procedure HEIDY ARNOLD [facility] Start: 10-14-2023 End: 10-14-2023 ambulatory [facility] Start: 10-13-2023 End: 10-14-2023 ambulatory [facility] Start: 10-11-2023 End: 10-11-2023 ambulatory LATOSHA OLMSTEAD Not Available Start: 10-10-2023 Refill Latosha Gray [facility] Comment on above: 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; Complex regional pain syndrome type 1 of right upper extremity Start: 09-29-2023 End: 09-30-2023 ambulatory [facility] Start: 09-28-2023 ambulatory Rosie Esqueda Research Coordinator [facility] Provider Adult Comment on above: [facility] IRB# [phone] Start: 09-28-2023 E-mail encounter fro m caregiver Rosie Esqueda Research Coordinator [facility] Start: 09-27-2023 Telephone encounter Rosie bourne Research Coordinator [facility] Provider Adult Comment on above: Research F/U Start: 09-26-2023 Telephone encounter Rosie bourne Research Coordinator [facility] Provider Adult Comment on above: Research F/U Start: 09-12-2023 End: 09-13-2023 ambulatory PA-C HEIDY ARNOLD Facility:[facility] Start: 09-12-2023 End: 09-12-2023 Patient encounter procedure [facility] Start: 09-07-2023 Sotero Burnett RN [facility] Comment on above: 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 Start: 09-05-2023 End: 09-05-2023 ambulatory Tondra Mapus Other [employer] Other Start: 09-05-2023 Telephone encounter Tondra Mapus [facility] Start: 08-09-2023 End: 08-10-2023 ambulatory [facility] Start: 08-09-2023 End: 08-09-2023 ambulatory [facility] Start: 08-01-2023 End: 08-01-2023 Patient encounter procedure [facility] Nephrology Michael Work Phone: Start: 07-18-2023 End: 07-19-2023 ambulatory PA[facility]C [facility] Start: 07-05-2023 End: 07-05-2023 Orders Only Taurus Ballard MD Work Phone: Urology Comment on above: Kidney cyst, acquire d (Primary Dx) Start: 07-05-2023 Telephone encounter Eli Sprague [facility] Nephrology Start: 06-28-2023 End: 06-29-2023 ambulatory Lisa Porras Facility:[facility] Start: 06-28-2023 End: 06-28-2023 Patient encounter procedure Lisa Porras [facility] Start: 06-26-2023 End: 06-26-2023 ambulatory Tondra Mapus Other [employer] Other Start: 06-26-2023 Telephone encounter Tondra Mapus [facility] Endocrinology Start: 06-23-2023 Telephone encounter Heidy salas RN Urology Comment on above: Surgical Followup Start: 06-22-2023 End: 06-23-2023 ambulatory TAURUS BALLARD Facility:[facility] Start: 06-19-2023 ambulatory Taurus newton MD Work Phone: Urology Comment on above: Aislinn Gardinerer upcomin g procedure Start: 06-15-2023 Telephone encounter Vonnie Wilder RN Ur ology Comment on above: Pre-Op Teaching Start: 06-12-2023 End: 06-12-2023 ambulatory Tondra Mapus Other [employer] Other Start: 06-12-2023 Telephone encounter Tondra Mapus [facility] Start: 06-08-2023 End: 06-08-2023 Lab Drop off HEIDY ARNOLD [facility] Start: 06-08-2023 End: 06-08-2023 Patient encounter procedure LATOSHA OLMSTEAD [facility] Start: 06-08-2023 (PUMP/CGM) Pump / Sensor Tondra Mapus [facility] Start: 06-08-2023 End: 06-09-2023 ambulatory [facility] [employer] Other Start: 06-06-2023 Encounter for other preprocedural examination TAURUS BALLARD [facility] Start: 06-06-2023 End: 06-07-2023 ambulatory TAURUS BALLARD Facility:[facility] Start: 05-22-2023 End: 05-23-2023 ambulatory Lisa Porras Facility:[facility] Start: 05-22-2023 End: 05-22-2023 Patient encounter procedure Lisa Porras [facility] Start: 05-18-2023 End: 05-18-2023 ambulatory Sara Augustine Other [employer] Other Start: 05-18-2023 FQ visit new patient Sara Augustine [facility] Start: 05-18-2023 Telephone encounter Taurus rees MD Work Phone: Urology Comment on above: Follow Up Start: 05-17-2023 End: 05-17-2023 ambulatory TAURUS BALLARD Facility:[facility] Start: 05-11-2023 End: 2023 ambulatory PA-C HEIDY ARNOLD Facility:[facility] Start: 05-11-2023 End: 05-11-2023 Lab Drop off HEIDY ARNOLD [facility] Start: 05-03-2023 End: 05-04-2023 ambulatory Lisa M. Lue Facility:[facility] Start: 04-18-2023 End: 04-19-2023 ambulatory PA-C HEIDY ARNOLD Facility:[facility] Start: 04-18-2023 End: 04-19-2023 ambulatory Lisa M. Lue Facility:[facility] Start: 04-18-2023 End: 04-18-2023 Lab Drop off HEIDY ARNOLD [facility] Start: 04-18-2023 End: 04-18-2023 Patient encounter procedure Lisa M. Lue [facility] Start: 04-04-2023 End: 04-04-2023 ambulatory Brigette Talleyt Other [employer] Other Start: 04-04-2023 Telephone encounter Brigette Wesley [facility] Start: 02-22-2023 End: 02-23-2023 ambulatory Lisa M. Lue Facility: [facility] Start: 02-22-2023 End: 02-22-2023 Patient encounter procedure Lisa Porras [facility] Start: 01-09-2023 End: 01-09-2023 ambulatory Azyanet Mendenhalls Other [employer] Other Start: 01-09-2023 Telephone encounter Azyanet Bakhous [facility] Start: 01-03-2023 End: 01-04-2023 ambulatory C[employer]IED [employer]ICAL BILLER LATOSHA AICHHOLZ Facility:[facility] Start: 12-28-2022 End: 12-29-2022 ambulatory CERTIFIED MEDICAL BILLER LATOSHA AICHHOLZ Facility:[facility] Start: 12-27-2022 End: 12-27-2022 ambulatory Azyanet Bakdis Other [facility] Other Start: 12-27-2022 Office outpatient ne w 30 minutes Aziz Bakhous [facility] Start: 12-15-2022 End: 12-16-2022 ambulatory CERTIFIED MEDICAL BILLER LATOSHA AICHHOLZ Facility:[facility] Start: 12-14-2022 End: 12-15-2022 ambulatory PETER D WILLYANDER Facility:[facility] Start: 10-27-2022 End: 10-28-2022 ambulatory CERTIFIED MEDICAL BILLER LATOSHA AICHHOLZ Facility:[facility] Start: 10-24-2022 End: 10-25-2022 ambulatory CERTIFIED MEDICAL BILLER LATOSHA AICHHOLZ Facility:[facility] Start: 10-12-2022 End: 10-13-2022 ambulatory CERTIFIED MEDICAL BILLER LATOSHA AICHHOLZ Facility:[facility] Start: 10-05-2022 End: 10-06-2022 ambulatory CERTIFIED MEDICAL BILLER LATOSHA AICHHOLZ Facility:[facility] Start: 09-29-2022 End: 09-30-2022 ambulatory CERTIFIED MEDICAL BILLER LATOSHA AICHHOLZ Facility:[facility] Start: 09-21-2022 End: 09-22-2022 ambulatory PETER D YUKO Facility:[facility] Start: 09-21-2022 End: 09-21-2022 Patient encounter procedure Lisa Porras [facility] Start: 09-15-2022 End: 09-16-2022 ambulatory CERTIFIED MEDICAL BILLER LATOSHA AICHHOLZ Facility:[facility] Start: 09-13-2022 End: 09-13-2022 Patient encounter procedure HEIDY ARNOLD [facility] Start: 09-08-2022 End: 09-09-2022 ambulatory CERTIFIED MEDICAL BILLER LATOSHA AICHHOLZ Facility:[facility] Start: 09-02-2022 End: 09-03-2022 ambulatory PETER D HIGHLANDER Facility:[facility] Start: 08-26-2022 End: 08-27-2022 ambulatory PETER D HIGHLANDER Facility:[facility] Start: 08-09-2022 End: 08-10-2022 ambulatory PETER D HIGHLANDER Facility:[facility] Start: 08-05-2022 End: 08-06-2022 ambulatory PETER D HIGHLANDER Facility:[facility] Start: 08-04-2022 End: 08-05-2022 ambulatory PETER D HIGHLANDER Facility:[facility] Start: 08-03-2022 End: 08-04-2022 ambulatory CERTIFIED MEDICAL BILLER LATOSHA AICHHOLZ Facility:[facility] Start: 08-02-2022 End: 08-03-2022 ambulatory CERTIFIED MEDICAL BILLER LATOSHA AICHHOLZ Facility:[facility] Start: 08-01-2022 End: 08-02-2022 ambulatory CERTIFIED MEDICAL BILLER LATOSHA AICHHOLZ Facility:[facility] Start: 07-19-2022 End: 07-20-2022 ambulatory CERTIFIED MEDICAL BILLER LATOSHA AICHHOLZ Facility:[facility] Start: 07-08-2022 End: 07-09-2022 ambulatory CERTIFIED MEDICAL BILLER LATOSHA AICHHOLZ Facility:[facility] Start: 07-06-2022 End: 07-07-2022 ambulatory CERTIFIED MEDICAL BILLER LATOSHA AICHHOLZ Facility:[facility] Start: 07-05-2022 End: 07-06-2022 ambulatory PETER D HIGHLANDER Facility:[facility] Start: 06-28-2022 End: 06-29-2022 ambulatory PETER D HIGHLANDER Facility:[facility] Start: 06-24-2022 End: 06-25-2022 ambulatory PETER D HIGHLANDER Facility:[facility] Start: 06-11-2022 End: 06-16-2022 Evaluation and management of inpatient DR NENO VIEIRA . Facility:[facility] Start: 06-02-2022 End: 06-02-[address] NELL PALMA Facility:[facility] Start: 06-02-2022 End: 06-03-2022 ambulatory RAMON HUNTLEY Facility:[facility] Start: 2022 End: 2022 ambulatory RAQUEL SABA . Facility:[facility] Start: 01-27-2021 End: 01-27-2021 Telephone encounter Barb Silva MD Work Phone: Nephrology Comment on above: Appointment Procedures Date Procedure Procedure Detail Performing Clinician Start: 06-22-2023 Laparoscopic partial nephrectomy of left kidney HEIDY CATALINA Start: 06-06-2023 Antibody screen TAURUS BALLARD Comment on above: Order Comment: Speci men Type: BLOOD SPECIMEN Ordering Facility: [facility] Address: [address] [place] [address] Performed By: #### T [id number] #### CC [facility] B[facility] [id number] [place] [address] [place] Start: 05-22-2023 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 Ricardo Rocha Start: 06-13-2022 Detachment at Left F oot, Partial 1st Ray, Open Approach KIARA OLMSTEAD Start: 06-13-2022 Microscopic examinat ion of blood, culture KIARA OLMSTEAD Comment on above: Performed By: #### B [email or web address] ####[facility] [address] [place], [place] [address]Dr. Ricardo Rocha Start: 06-11-2022 Detachment at Left 1 st Toe, Complete, Open Approach KIARA OLMSTEAD Ankle region structu re (body structure) HEIDY ARNOLD Arthroscopy of knee HEIDY ARNOLD Cataract (disorder) HEIDY ARNOLD Gallbladder structur e (body structure) HEIDY ARNOLD Hysterectomy HEIDY ARNOLD Neck structure (body structure) HEIDY ARNOLD Shoulder region stru cture (body structure) HEIDY ARNOLD Traumatic partial amputation of left foot HEIDY ARNOLD Upper limb structure (body structure) HEIDY ARNOLD Plan of Treatment Date Care Activity Detail Author Start: 10-13-2024 Tobacco Screening Tobacco Screening [facility] Start: 09-29-2024 Tobacco Screening Tobacco Screening [facility] Start: 09-03-2024 [facility] blood count [facility] Start: 09-03-2024 Creatinine measurement Serum Creatin ine [facility] Start: 08-09-2024 Adult BMI Screening Adult BMI Screen ing [facility] Start: 08-09-2024 Tobacco Screening Tobacco Screening [facility] Start: 06-23-2024 Hemoglobin/Hematocrit Hemoglobin/Hem atocrit [facility] Start: 06-23-2024 Serum Creatinine Serum Creatinine [facility] Start: 06-06-2024 Hemoglobin/Hematocrit Hemoglobin/Hem atocrit [facility] Start: 06-06-2024 Serum Creatinine Serum Creatinine [facility] Start: 04-04-2024 Hepatitis B screening Urine Albumin:Creatinine Ratio [facility] Start: 01-22-2024 DIABETES SCREEN DIABETES SCREEN [facility] Start: 11-22-2023 End: 11-22-2023 Patient encounter procedure 11/22/2023 11:15 AM EDT Office Visit [facility] [address] [place] [address] Sweta Li, PA-C [address] [place] [address] [facility] Start: 10-25-2023 End: 10-25-2023 Patient encounter procedure 10/25/2023 12:45 PM EST Office Visit [facility] [address] [place] [id number] Sweta Li, PAJuan JoseC [address] [place], [place] [id number] [facility] Start: 10-13-2023 End: 10-13-2023 Njx anes stellate ganglion crv sympathetic INJECTION BLOCK NERVE STELLATE GANGLION NECK Complex regional pain syndrome type 1 of right upper extremity 10/13/2023 12:[address] [facility] Start: 10-13-2023 End: 10-13-2023 Patient encounter procedure 10/13/2023 9:55 AM EST Appointment [facility] [address] [place] [phone] Joe Pedro MD [address] [place], [place] [id number] [facility] Start: 10-05-2023 End: 01-04-2024 Basic metabolic 2000 panel - Serum or Plasma BASIC METABOLIC PNL Lab Routine Kidney cyst, acquired Expected: 10/05/2023 (Approximate), Expires: 01/04/2024 [facility] Work Phone: Comment on above: Expected: 10/05/2023 (Approximate), Expires: 01/04/2024 Start: 10-05-2023 End: 08-03-2024 US KIDNEY/BLADDER US KIDNEY/BLADDER Radiology Routine Kidney cyst, acquired Expected: 10/05/2023 (Approximate), Expires: 08/03/2024 [facility] Work Phone: Comment on above: Expected: 10/05/2023 (Approximate), Expires: 08/03/2024 Start: 09-06-2023 Hemoglobin A1c measurement HbA1C [facility] Start: 09-06-2023 Hemoglobin A1c/Hemoglobin.total in Blood HbA1C [facility] Start: 08-21-2023 Advance Directive Discussion Advance Directive Discussion [facility] Start: 08-21-2023 Depression Assessment Depression Ass essment [facility] Start: 2023 Advance Directive Discussion Advance Directive Discussion [facility] Start: 2023 Bone Density Screening Bone Density Screening [facility] Start: 2023 Fall Risk Screening Fall Risk Screen ing [facility] Start: 2023 Screening for osteoporosis Bone Density Screening [facility] Start: 04-21-2023 Covid-19 Vaccine ( season) Covid-19 Vaccine ( season) [facility] Start: 04-21-2023 Covid-19 Vaccine ( season) Covid-19 Vaccine ( season) [facility] Start: 04-21-2023 Influenza vaccination [facility] Start: 08-21-2022 Depression Assessment Depression Ass essment [facility] Start: 04-21-2021 Influenza vaccination INFLUENZ A (Season Ended) [facility] Start: 2018 Hepatitis B Vaccine (1 of 3 - Risk 3-dose series) Hepatitis B Vaccine (1 of 3 - Risk 3-dose series) [facility] Start: 2018 RSV Vaccine (1 - 1-d ose 60+ series) RSV Vaccine (1 - 1-dose 60+ series) [facility] Start: 2008 Administration of varicella zoster vaccine Zoster (Shingles) Vaccine (1 of 2) [facility] Start: 2008 Screening for malign ant neoplasm of colon [facility] Start: 2008 SHINGRIX VACCINE (1 of 2) SHINGRIX VACCINE (1 of 2) [facility] Start: 2003 Cologuard (FIT-DNA) Cologuard (FIT-D NA) [facility] Start: 2003 Colonoscopy Colonoscopy [facility] Start: 2003 Colorectal Cancer Screening Colorectal Cancer Screening [facility] Start: [address] Colonography [facility] Start: 2003 Fecal Occult Blood Fecal Occult Bloo d [facility] Start: 2003 LIPID SCREEN LIPID SCREEN [facility] Start: 2003 Screening for malign ant neoplasm of colon [facility] Start: 2003 Sigmoidoscopy Sigmoidoscopy [facility] Start: 1998 Mammography [facility] Start: 1998 Screening for malign ant neoplasm of breast Mammogram Screening [facility] Start: 1988 HPV TESTING HPV TESTING [facility] Start: 1979 PAP TESTING PAP TESTING [facility] Start: 1977 DTaP,Tdap and Td Vaccines (1 - Tdap) DTaP,Tdap and Td Vaccines (1 - Tdap) [facility] Start: 1977 Urine microalbumin profile [facility] Start: 1976 Annual PCP Team Laborer/Grade Check hola Disease Visit Annual PCP Team Chronic Disease Visit [facility] Start: 1976 BP Controlled (<130/80) BP Controlle d (<130/80) [facility] Start: 1976 Diabetic foot examination Diabetic Foot Exam [facility] Start: 1976 Hepatitis B surface antibody level LDL Cholesterol [facility] Start: 1976 HEPATITIS C SCREENING HEPATITIS C [facility] Start: 1976 Hepatitis C screening Hepatitis C [facility] Start: 1976 HIV SCREENING HIV SCREENING [facility] Start: 1976 HIV screening HIV Screening [facility] Start: 1976 Spirometry Spirometry [facility] Start: 1970 Adult depression screening assessment DEPRESSION SCREENING [facility] Start: 1970 COVID-19 VACCINE (1) COVID-19 VACCIN E (1) [facility] Start: 1968 3 comp foot exam completed Diabetic Foot Exam [facility] Start: 1968 Diabetic foot examination Diabetic Foot Exam [facility] Start: 1968 Glaucoma screening Dilated Retinal E xam [facility] Start: 1968 Hepatitis B screening Urine Albumin:Creatinine Ratio [facility] Start: 1968 Hepatitis C antibody , confirmatory test Dilated Retinal Exam [facility] Start: 1964 Pneumococcal Vaccine : 65+ (1 - PCV) Pneumococcal Vaccine: 65+ (1 - PCV) [facility] Start: 1964 Pneumococcal Vaccine : 65+ (1 of 2 - PCV) Pneumococcal Vaccine: 65+ (1 of 2 - PCV) [facility] Start: 1958 Glaucoma screening Diabetic Op hthalmology Exam [facility] Start: 1958 Urine screening for protein Urine Microalbumin [facility] Njx anes stellate ganglion crv sympathetic INJECTION BLOCK NERVE STELLATE GANGLION NECK Complex regional pain syndrome type 1 of right upper extremity [facility] Njx anes stellate ganglion crv sympathetic INJECTION BLOCK NERVE STELLATE GANGLION NECK Complex regional pain syndrome type 1 of right upper extremity [facility] Immunizations Immunization Date Immunization Notes Care Provider Lukas pacheco 04-02-2021 SARS-CoV-2 (COVID-19 ) mRNA-1273 vaccine HEIDY ARNOLD [facility] 12-07-2020 SARS-CoV-2 (COVID-19 ) mRNA-1273 vaccine HEIDY ARNOLD [facility] 06-03-2016 influenza virus vaccine, unspecified formulation HEIDY CATALINA [facility] 06-03-2016 influenza, seasonal, injectable, preservative free Rosie Esqueda Research Coordinator [facility] Payers Date Payer Category Payer Medicare [id number] 2023 Self-pay 2022 Medicare [id number] 2022 Medicare [id number] [id number] 2006 Medicare MEDICARE MEDICAR E A [id number] 2006-Present [place] Medicare [id number] 2003 Unknown [id number] 1959 Medicare [id number] 2.16.840.1.190820.19 1959 Unknown [id number] 1959 Unknown [id number] 1958 Unknown [id number] 2.16.840.1.855930.3.579.2.593 1958 Unknown [id number] 2.16.840.1.212790.3.579.2.593 1958 Unknown [id number] 2.16.840.1.056656.3.579.2.593 1958 Unknown [id number] 2.16.840.1.300959.3.579.2.593 1958 Unknown [id number] 2.16.840.1.708060.3.579.2.593 1958 Unknown [id number] 2.16.840.1.697533.3.579.2.593 1958 Unknown [id number] 2.16.840.1.056929.3.579.2.593 1958 Unknown [id number] 2.16.840.1.564084.3.579.2.593 1958 Unknown [id number] 2.16.840.1.770116.3.579.2.593 1958 Unknown [id number] 2.16.840.1.291801.3.579.2.593 1958 Unknown [id number] 2.16.840.1.303403.3.579.2.593 1958 Unknown [id number] 2.16.840.1.572795.3.579.2.593 1958 Unknown [id number] 2.16.840.1.469990.3.579.2.593 1958 Unknown [id number] 2.16.840.1.975231.3.579.2.593 1958 Unknown [id number] 2.16.840.1.590861.3.579.2.593 1958 Unknown [id number] 2.16.840.1.895024.3.579.2.593 1958 Unknown [id number] 2.16.840.1.389080.3.579.2.593 1958 Unknown [id number] 2.16.840.1.613683.3.579.2.593 1958 Unknown [id number] 2.16.840.1.289272.3.579.2.593 1958 Unknown [id number] 2.16.840.1.319259.3.579.2.593 1958 Unknown [id number] 2.16.840.1.564291.3.579.2.593 1958 Unknown [id number] 2.16.840.1.962788.3.579.2.593 1958 Unknown [id number] 2.16.840.1.788995.3.579.2.593 1958 Unknown [id number] 2.16.840.1.329118.3.579.2.593 1958 Unknown [id number] 2.16.840.1.478532.3.579.2.593 1958 Unknown [id number] 2.16.840.1.836932.3.579.2.593 1958 Unknown [id number] 2.16.840.1.973612.3.579.2.593 1958 Unknown [id number] 2.16.840.1.252633.3.579.2.593 1958 Unknown [id number] 2.16.840.1.000327.3.579.2.593 1958 Unknown [id number] 2.16.840.1.942499.3.579.2.593 1958 Unknown [id number] 2.16.840.1.501465.3.579.2.593 1958 Unknown [id number] 2.16.840.1.587417.3.579.2.72 1958 Unknown [id number] 2.16.840.1.904710.3.579.2.72 1958 Unknown [id number] 2.16.840.1.719857.3.579.2.72 1958 Unknown [id number] 2.16.840.1.126643.3.579.2.72 1958 Unknown [id number] 2.16.840.1.917580.3.579.2.72 1958 Unknown [id number] 2.16.840.1.686281.3.579.2.72 1958 Unknown [id number] 2.16.840.1.037411.3.579.2.72 1958 Unknown [id number] 2.16.840.1.063204.3.579.2.72 1958 Unknown [id number] 2.16.840.1.554948.3.579.2.72 1958 Unknown [id number] 2.16.840.1.567685.3.579.2.72 1958 Unknown [id number] 2.16.840.1.014666.3.579.2.72 1958 Unknown [id number] 2.16.840.1.684997.3.579.2.72 1958 Unknown [id number] 2.16.840.1.642932.3.579.2.72 1958 Unknown [id number] 2.16.840.1.289278.3.579.2.727 1958 Unknown [id number] 2.16.840.1.820584.3.579.2.727 1958 Unknown [id number] 2.16.840.1.444802.3.579.2.128 6 1958 Unknown [id number] 2.16.840.1.165682.3.579.2.128 6 1958 Unknown [id number] 2.16.840.1.538929.3.579.2.128 6 1958 Unknown [id number] 2.16.840.1.825707.3.579.2.128 6 1958 Unknown [id number] 2.16.840.1.177046.3.579.2.128 6 1958 Unknown [id number] 2.16.840.1.206652.3.579.2.128 6 1958 Unknown [id number] 2.16.840.1.034811.3.579.2.128 6 1958 Unknown [id number] 2.16.840.1.307709.3.579.2.128 6 1958 Unknown [id number] 2.16.840.1.752059.3.579.2.128 6 1958 Unknown [id number] 1960 Unknown [id number] 1960 Unknown [id number] Medicare [id number] Unknown [facility] [id number] Unknown [id number] Social History Date Type Detail Facility Start: 01-17-2021 End: 07-27-2022 Tobacco smoking status NHIS Never smoker [facility] Start: 01-17-2021 End: 07-27-2022 Tobacco use and exposure Never used [facility] Start: 01-17-2021 End: 06-06-2023 Alcohol intake Current drinker of alcohol (finding) [facility] Start: 01-17-2021 History SDOH Alcohol Frequency 1 [facility] Start: 01-17-2021 Alcohol Comment socially [facility] Start: 1960 Sex Assigned At Not [facility] file [facility] Exposure to SARS-CoV -2 (event) Not sure [facility] Tobacco smoking status Never [facility] Start: 09-04-2020 End: 06-06-2023 Sex Assigned At Female [facility] Start: 09-04-2020 End: 06-06-2023 History of Social function [facility] Start: 06-06-2023 Alcohol Comment rarely--holida y or special occ [facility] Start: 08-09-2023 End: 10-13-2023 Alcohol intake Current non-drinker of alcohol (finding) [facility] Are you now , , , , never or living with a partner? [facility] How hard is it for y ou to pay for the very basics like food, housing, medical care, and heating Not very hard [facility] (I/We) worried liss medellin (my/our) food would run out before (I/we) got money to buy more. DK or Refused [facility] Start: 1960 Sex Assigned At Female F [facility] Functional Status Date Assessment Result Facility 10-25-2023 Functional Status N/A [facility] 05-22-2023 Functional Status N/A [facility] 05-11-2023 Functional Status [facility] 02-22-2023 Functional Status N/A [facility] 09-21-2022 Functional Status N/A [facility] 09-13-2022 Functional Status N/A [facility] Clinical Notes 01-17-2021 to 11-06-2023 Telephone Encounter - Asia Barreto RN - 11/06/2023 1:07 PM EDTTelephone Encounter - Asia Barreto RN - 11/06/2023 1:07 PM EDTTelephone Encounter - Latosha Gray CNA - 10/10/2023 10:17 AM EST Note Date & Type Note Facility 11-06-2023 Miscellaneous Notes Last Office Visit: 08/09/2024 Next Office Visit: 11/22/2023 Last Urine Drug Screen: Lab Results Component Value Date BENZOSCRN Negative 08/09/2023 OARRS appropriate documented in this encounter [facility] 11-06-2023 Telephone encounter Note Last Office Visit: 08/09/2024 Next Office Visit: 11/22/2023 Last Urine Drug Screen: Lab Results Component Value Date BENZOSCRN Negative 08/09/[address] [facility] 10-25-2023 Hospital Discharg e instructions Patient Education 10/25/2023 16:06:45 Botulinum Toxin Bladder Injection Botulinum Toxin Bladder Injection A botulinum toxin bladder injection is a procedure to treat an overactive bladder. During the procedure, a drug called botulinum toxin is injected into the bladder through a long, thin needle. This drug relaxes the bladder muscles and reduces overactivity. You may need this procedure if your medicines are not working or you cannot take them. The procedure may be repeated as needed. The treatment is done once and it usually lasts for 6 months. Your health care provider will monitor you to see how well you respond. Tell a health care provider about: Any allergies you have. All medicines you are taking, including vitamins, herbs, eye drops, creams, and euvf-lqu-ruvdybi medicines. Any problems you or family members have had with anesthetic medicines. Any bleeding problems you have. Any surgeries you have had. Any medical conditions you have. Any previous reactions to a botulinum toxin injection. Any symptoms of urinary tract infection. These include chills, fever, a burning feeling when passing urine, and needing to pass urine often. Whether you are or may be . What are the risks? Generally this is a safe procedure. However, problems may occur, including: Not being able to pass urine. If this happens, you may need to have your bladder emptied with a thin tube (urinary catheter). Bleeding. Urinary tract infection. Allergic reaction to the botulinum toxin. Pain or burning when passing urine. Damage to nearby structures or organs. What happens before the procedure? When to stop eating and drinking Follow instructions from your health care provider about what you may eat and drink before your procedure. These may include: 8 hours before the procedure ?Stop eating most foods. Do not eat meat, fried foods, or fatty foods. ?Eat only light foods, such as toast or crackers. ?All liquids are okay except energy drinks and alcohol. 6 hours before the procedure ?Stop eating. ?Drink only clear liquids, such as water, clear fruit juice, black coffee, plain tea, and sports drinks. ?Do not drink energy drinks or alcohol. 2 hours before the procedure ?Stop drinking all liquids. ?You may be allowed to take medicines with small sips of water. If you do not follow your health care provider's instructions, your procedure may be delayed or canceled. Medicines Ask your health care provider about: Changing or stopping your regular medicines. This is especially important if you are taking diabetes medicines or blood thinners. Taking medicines such as aspirin and ibuprofen. These medicines can thin your blood. Do not take these medicines unless your health care provider tells you to take them. Taking wdus-goz-pautais medicines, vitamins, herbs, and supplements. General instructions Ask your health care provider what steps will be taken to help prevent infection. These steps may include: ?Removing hair at the procedure site. ?Washing skin with a germ-killing soap. ?Taking antibiotic medicine. If you will be going home right after the procedure, plan to have a responsible adult: ?Take you home from the hospital or clinic. You will not be allowed to drive. ?Care for you for the time you are told. What happens during the procedure? You will be asked to empty your bladder. An IV will be inserted into one of your veins. You will be given one or more of the following: ?A medicine to help you relax (sedative). ?A medicine to numb the area (local anesthetic). ?A medicine to make you fall asleep (general anesthetic). A long, thin scope called a cystoscope will be passed into your bladder through the part of the body that carries urine from your bladder (urethra). The cystoscope will be used to fill your bladder with water. A long needle will be passed through the cystoscope and into the bladder. The botulinum toxin will be injected into your bladder. It may be injected into multiple areas of your bladder. The cystoscope will be removed and your bladder will be emptied with a urinary catheter. The procedure may vary among health care providers and hospitals. What can I expect after the procedure? After your procedure, it is common to have: Blood-tinged urine. Burning or soreness when you pass urine. Follow these instructions at home: Medicines Take bsda-nem-nnrsiuz and prescription medicines only as told by your health care provider. If you were prescribed an antibiotic medicine, take it as told by your health care provider. Do not stop using the antibiotic even if you start to feel better. General instructions If you were given a sedative during the procedure, it can affect you for several hours. Do not drive or operate machinery until your health care provider says that it is safe. Drink enough fluid to keep your urine pale yellow. Return to your normal activities as told by your health care provider. Ask your health care provider what activities are safe for you. Keep all follow-up visits. Contact a health care provider if you have: A fever or chills. Blood-tinged urine for more than one day after your procedure. Worsening pain or burning when you pass urine. Pain or burning when passing urine for more than two days after your procedure. Trouble emptying your bladder. Get help right away if you: Have bright red blood in your urine. Are unable to pass urine. Summary A botulinum toxin bladder injection is a procedure to treat an overactive bladder. This is generally a safe procedure. However, problems may occur, including not being able to pass urine, bleeding, infection, pain, and an allergic reaction to the botulinum toxin. You will be told when to stop eating and drinking, and what medicines to change or stop. Follow instructions carefully. After the procedure, it is common to have blood in your urine and to have soreness or burning when passing urine. Contact a health care provider if you have a fever, blood in your urine for more than a few days, or trouble passing urine. Get help right away if you have bright red blood in your urine, or if you are unable to pass urine. This information is not intended to replace advice given to you by your health care provider. Make sure you discuss any questions you have with your health care provider. Document Revised: 02/11/2022 Document Reviewed: 02/11/2022 [employer] Patient Education 2022 [employer]. Follow Up Care 09/26/2023 08:43:34 With:CATALINA VIRGEN, HEIDY Rodriguez, URL Address: [address] [place] [address] When: Unknown [facility] [place] 10-10-2023 Miscellaneous Notes Last OV: 08/12/23 Next OV: proc 10/13/23 OARRS appropriate: yes Last UDS: 08/12/23 [facility] Tele[facility] encounter Note Last OV: 08/12/23 Next OV: proc 10/13/23 OARRS appropriate: yes Last UDS: 08/12/23 Pharmacy: [facility] [place] [facility] 09-27-2023 Miscellaneous Notes Summary: [employer] IRB# [id number] IRB# [id number]: Vascular events in patients undergoing same-day nonCardiac surgery - CHRISTOPHER PI: Mary Rojas MD, LETY, JAKUBA. Outcomes Research Department. Anesthesia [place]. [facility]. Aislinn Wheeler was unavailable at the listed phone number. We will attempt to contact the patient through [employer] message. Rosie Esqueda, Research Coordinator Research Coordinator documented in this encounter [facility] 09-26-2023 Miscellaneous Notes Summary: CHRISTOPHER IRB# [id number] IRB# [id number]: Vascular events in patients undergoing same-day nonCardiac surgery - CHRISTOPHER PI: Mary Rojas MD, LETY, FASA. Outcomes Research Department. Anesthesia [place]. [facility]. Aislinn Wheeler was unavailable at the listed phone number. We will attempt to contact the patient again at a later date. Rosie Esqueda, Research Coordinator Research Coordinator documented in this encounter [facility] 09-07-2023 Miscellaneous Notes Last OV: 08/09/2023 Next OV: --- OARRS appropriate: yes Last UDS: 08/09/2023 Pharmacy: [facility] [place] [facility] Patient left phone message requesting refill on Morrison and Lyrica. Lyrica prescription signed 08/11/2023 has 1 refill. Per OARRS patient last filled Lyrica 08/11/2023. Morrison prescription pended for review and signature. Patient's fill dated adjusted from 09/14/23 to 09/17/23 due to recent 3 day hospitalization. documented in this encounter [facility] 09-07-2023 Telephone encounter Note Last OV: 08/09/2023 Next OV: --- OARRS appropriate: yes Last UDS: 08/09/2023 Pharmacy: [facility] [place] [facility] Patient left phone message requesting refill on Morrison and Lyrica. Lyrica prescription signed 08/11/2023 has 1 refill. Per OARRS patient last filled Lyrica 08/11/2023. Morrison prescription pended for review and signature. [facility] 09-07-2023 Telephone encounter Note Patient's fill dated adjusted from 09/14/23 to 09/17/23 due to recent 3 day hospitalization. [facility] 09-03-2023 Note HNO ID: [id number] Author: KRYSTA SULLIVAN MD Service: Hospital Medicine [...] -- 08/31/23 1115 activity - mobilize patient (wi,oh) VTE Prophylaxis: VTE prophylaxis appropriate SIGNATURE: Krysta Sullivan MD PATIENT NAME: Aislinn Wheeler DATE: September 03, 2023 TIME: 6:31 PM [facility] 09-02-2023 Note HNO ID: [id number] Author: KRYSTA SULLIVAN MD Service: Hospital Medicine [...] -- 08/31/23 1115 activity - mobilize patient (wi,ca) VTE Prophylaxis: VTE prophylaxis appropriate SIGNATURE: Krysta Sullivan MD PATIENT NAME: Aislinn Wheeler DATE: September 02, 2023 TIME: 2:31 PM [facility] 09-02-2023 Note HNO ID: [id number] Author: NOTE, INTERFACE, ? Service: ? Author Type: ? Type: Progress Notes Filed: 09/02/2023 02:20 Note Text: Epic Scheduled Downtime: 09/02/2023 1:00:00 AM to 09/02/2023 2:04:22 AM [facility] 09-01-2023 Note HNO ID: [id number] Author: CHELSEA LOUIS RN Service: Care Management Author Type: Registered Nurse Type: Care Mgt Progress Note Filed: 09/01/2023 15:30 Note Text: CARE MANAGEMENT WEEKEND PLANNING NOTE NO WEEKEND DISCHARGE Disposition: TBD Anticipated Discharge Date: No weekend DC anticipated Weekend Human Resources Hr Representative Pager #: Girish Rogers [phone] ANATOLIY UTI - repeat UA sent - bc pending Waiting on podiatry consult SIGNATURE: Chelsea Louis RN PATIENT NAME: Aislinn Wheeler DATE: September 01, 2023 TIME: 3:28 PM PAGER/CONTACT #: [phone] [facility] 09-01-2023 Note HNO ID: [id number] Author: ANTHONY BARROW MD Service: Hospital Medicine [...] -- 08/31/23 1115 activity - mobilize patient (wi,ca) VTE Prophylaxis: VTE prophylaxis appropriate SIGNATURE: Anthony Barrow MD PATIENT NAME: Aislinn Wheeler DATE: September 01, 2023 TIME: 11:36 AM [facility] 08-31-2023 Note HNO ID: [id number] Author: TIN QUIÑONEZ LSW Service: Care Management Author Type: Assembler Flexible Leads Type: Care Mgt Initial Assessment Filed: 08/31/2023 14:02 Note Text: CARE MANAGEMENT: ASSESSMENT AND DISCHARGE PLAN SERVICE DATE: August 31, 2023 SERVICE TIME: 1:42 PM PCP: Latosha Olmstead Primary Contact: Extended Emergency Contact Information Primary Emergency Contact: CHLOE SEARS Mobile Relation: Grandchild Admission Status: Inpatient Insurance Provider: [facility] MEDICARE PPO Discharge Planning requested by: Per Department Practice Potential Transition Plans To Be Determined Advance Directives Current Advance Directive: None Inspector Circuitry Negative Attempted to Assist with AD Completion: Yes Action: Education Provided Current Living Arrangements and Support Lives with: Family members, Children Type of Residence: Private Residence (House) Support: Family members How do you manage to accomplish the following: Independent: Ambulation;Bathe/Shower;Dress;M eals/Meal Prep;Going to the bathroom;Medication Management;Transportation to appointments/community Current Services/Equipment Current Post-Acute Service(s): None Discharge Planning Patient Goal(s): General wellness [place] Choice Explained: [place] Given: No Reason Not Given: [...] with pt at bedside. Pt lives in [place] with her grandchildren (18, 17, and [...] 31, 2023 TIME: 1:42 PM CONTACT #: [phone] [facility] 08-31-2023 History of Past i llness [...] of this encounter (statuses as of 09/27/2023) [facility]01-11-2024 History of Past illness Narrative* Problem Noted Date Diagnosed Date Resolved Date Fever 08/31/2023 09/04/2023 Urinary tract infection without hematuria 08/31/2023 09/04/2023 Acute cystitis without hematuria 01/18/2021 01/21/2021 Pyelonephritis 01/17/2021 01/21/2021 Sepsis 01/17/2021 01/21/2021 Hyponatremia 01/17/2021 01/21/2021 Hyperkalemia 01/17/2021 09/04/2023 ANATOLIY (acute kidney injury) 01/17/2021 Hydronephrosis due to obstruction of ureter 01/17/2021 01/21/2021 documented as of this encounter (statuses as of 09/28/2023) [facility]01-11-2024 History of Past illness Narrative* Problem Noted Date Diagnosed Date Resolved Date Fever 08/31/2023 09/04/2023 Urinary tract infection without hematuria 08/31/2023 09/04/2023 Acute cystitis without hematuria 01/18/2021 01/21/2021 Pyelonephritis 01/17/2021 01/21/2021 Sepsis 01/17/2021 01/21/2021 Hyponatremia 01/17/2021 01/21/2021 Hyperkalemia 01/17/2021 09/04/2023 ANATOLIY (acute kidney injury) 01/17/2021 Hydronephrosis due to obstruction of ureter 01/17/2021 01/21/2021 documented as of this encounter (statuses as of 09/28/2023) [facility]11-15-2023 Evaluation note* Encounter Date Diagnosis Assessment Notes Treatment Notes Treatment Clinical Notes Jun, Vitamin B12 deficiency (ICD-10 - E53.8) [facility] Other 11-03-2023 NoteHNO ID: [id number] Author: Rashad Kaye Service: ? Author Type: ? Type: Plan of Care Filed: 06/26/2023 9:53 AM Note Text: PHARMACY BEDSIDE DELIVERY SERVICE Patient Name: Aislinn Wheeler The marked outpatient medications were Filled at: [facility] and delivered to the patient's bedside to [facility] Medication List START taking these medications acetaminophen [...] them or your Primary Care Provider. [facility] PAGER: [phone] June 26, 2023 9:52 [facility]11-03-2023 NoteHNO ID: [id number] Author: Taurus Ballard MD Service: Urology Author Type: Physician Type: Progress Notes Filed: 06/23/2023 1:37 PM Note Text: [facility] UROLOGY PROGRESS NOTE Name: Aislinn Wheeler Bed: [id number] Date: June 23, 2023 After Hours [facility] Urology Service Pager: [phone] ASSESSMENT AND PLAN Aislinn Wheeler is a [...] Jeet De La Fuente MD Urology Resident [facility] [place] Pager [phone] SUBJECTIVE -c/o pain, had a BM, no [...] Date 06/22/23 07 - 06/23/23 0659 06/23/23 07 - 06/24/23 0659 Shift 9483-5374 3114-5241 0312-9127 24 Hour Total 6930-3672 0166-4672 9229-8855 24 Hour Total INTAKE IV 1600 1600 Volume (mL) (lactated ringers iv infusion) 1000 1000 Volume (mL) (lactated ringers iv infusion) 600 600 Shift Total 1600 1600 OUTPUT Urine 300 410 905 1588 OR Urine Output 300 300 Output ( Indwelling Urinary Catheter 06/22/23 1130 Chaves 16 Fr) 870 965 2833 Tubes 20 40 60 Drain/Tube Output (Drain/Tube 06/22/23 1333 Lex Vega Right Lower Quadrant Abdomen Drain #1) 20 40 60 # of BMs Number of BMs 1 x 1 x Blood 50 50 Estimated Blood loss 50 50 Shift Total 350 130 330 5681 Weight (kg) 59 59 59 59 59 [...] We will call with pathology. Taurus Ballard [facility]11-03-2023 Miscellaneous Notes* Telephone Encounter - Heidy Garcia RN - 06/23/2023 9:03 AM EDT Patient had left robotic partial nephrectomy by Dr. Ballard on 06/22/2023 Will call for surgical follow up once discharged [facility]23 NoteHNO ID: [id number] Author: Linda Nicholson RN Service: Nursing Author Type: Registered Nurse Type: Nursing Progress Note Filed: 06/22/2023 2:15 PM Note Text: surgical dressing: surgical glue, [facility]11-02-2023 NoteHNO ID: [id number] Author: Chloe Be APRN.PAYROLL ACCOUNTING CLERK Service: ? Author Type: Nurse Fly Winder Type: Anesthesia Procedure Notes Filed: 06/22/2023 12:24 PM Note Text: ANESTHESIOLOGY PROCEDURE NOTE Airway General Information Procedure Start Time/Medication Administration: 06/22/2023 11:22 AM Patient location during procedure: OR Patient identity confirmed: arm band, care call or contact centre team leader and patient Staffing PAYROLL ACCOUNTING CLERK: Chloe Be APRN.PAYROLL ACCOUNTING CLERK Performed by: PAYROLL ACCOUNTING CLERK Indications and Patient Condition Indications for airway [...] June 22, 2023 TIME: 12:24 PM CSN: [id number] Miscellaneous Notes* Telephone Encounter - Vonnie Wilder RN - 06/15/2023 11:24 AM EDT Attempted to call patient for pre op instructions.mailbox is full and unable to LVM. Will try again. [facility] Evaluation note* Encounter Date Diagnosis Assessment [...] (ICD-10 - Z68.25) May, Other see above [facility] Other 10-02-2023 Note [id number]:127[facility] 05-22-2023 NoteCystoscopy with Botox injection ? [...] if you have a fever over 100 degrees.[facility] 05-22-2023 Hospital Discharge instructions Patient Education [...] Up Care 05/03/2023 10:48:47 With:Lisa Porras Address: [address] [place] [phone] Business (1) [facility] Juancarlos Palmer, [address] [address] [phone] Business (1) When: Unknown Comments:Office to schedule follow up in 1 month with [facility]09-28-2023 Evaluation note* Encounter Date Diagnosis Assessment [...] counting, pt agreeable to apt with RD/RN ELLI. Reviewed with pt importance of taking humalog [...] 24.0-24.9, adult (ICD-10 - Z68.24) see above [facility] Other 09-28-2023 Miscellaneous Notes* Telephone Encounter - Latosha Faulkner - 05/18/2023 12:57 PM EDT Consult notes sent back to Dr. Lisa Porras , phone [phone]. From Dr. Ballard office. documented in [facility] encounterC[facility]09-[facility]-2023 NoteHNO ID: [id number] Author: Taurus Ballard MD Service: ? Author Type: Physician Type: Progress Notes Filed: 05/17/2023 1:35 PM Note Text: [facility] FOLLOW-UP PATIENT HISTORY AND PHYSICAL EXAM PATIENT [...] 1.92 01/19/[address] scan (outside records) [facility] 09/28/21 IMPRESSION: Since the prior CT [...] threatening or minor complicatio (more content not included)...[id number] Discharge instructions Patient Education 02/22/2023 09:35:15 [...] provider. Document Revised: 12/16/2021 Document Reviewed: 12/16/2021 [employer] Patient Education 2022 [employer]. Follow Up Care 09/13/2022 14:59:43 With:Vern TAVERAS, EMELINA Hernandez, URO Address: When:Within 2 Month(s) Comments:w/ PVR [facility] [place] 05-09-2023 Evaluation note* Encounter Date [...] N28.1) Patient follows with urology clinic in [place] for enlarging left renal cyst. December, Hyperkalemia [...] her blood pressure persistently more than 150/90. [facility] Other 02-01-2023 Hospital Discharge instructions Patient Education [...] 07/24/2013 Document Revised: 03/27/2019 Document Reviewed: 03/27/2019 [employer]Pass Patient Education 2020 [employer]. Follow Up Care 09/14/2022 14:44:34 With:Vern TAVERAS, EMELINA Hernandez, URO Address: When: Unknown [facility] 01-24-2023 Hospital Discharge instructions Patient Education [...] fried and sweet foods. General instructions Take macc-gra-ddxfnan and prescription medicines only as told by [...] 06/03/2010 Document Revised: 11/28/2019 Document Reviewed: 08/23/2018 [employer]Pass Patient Education 2020 [employer] Follow Up Care 08/24/2022 11:21:49 With:MAI ARNOLD PA-CNICHASE Rodriguez, URL Address: [address] [place] [address] When: Unknown [facility] [place] 06-09-2021 Miscellaneous Notes* Telephone Encounter - Brabara Talbot - 01/27/2021 10:30 AM EDT Scheduled 02/15 * Telephone Encounter - Barb Silva MD - 01/27/2021 9:40 AM EDT Please schedule hospital follow up with Guy Overton Deitzer, or Sasha. Virtual ok documented in this encounterC[facility]06-03-2021 NoteHNO ID: [id number] Author: Griselda Diaz (Flame Brazing Machine Operator) Service: ? Author Type: ? Type: Plan [...] Generic drug: insulin detemir U-100 Griselda Diaz (Flame Brazing Machine Operator) PAGER: paris January 21, 2021 4:27 [facility] NoteHNO ID: [id number] Author: ELIZABETH Kothari Service: Care Management Author Type: Assembler Flexible Leads Type: Care Mgt Progress Note Filed: 01/21/2021 1:39 PM Note Text: CARE MANAGEMENT DISCHARGE NOTE SERVICE DATE: 01/21/2021 SERVICE TIME: 1300 LOS: 4 days Admission Date: 01/17/2021 DISCHARGE ARRANGEMENT (list agency and phone number) Discharge Arrangement: Home;Home Fdc Care: Nursing;PT;OT [facility] ASSESSMENT: Maira Davila to transport home [phone] HANDOFF COMMUNICATION: Handoff to: Other Caregiver;Primary Care Physician Primary Care Physician Name/Phone: Madeline Jordan PA-C Other Caregiver Name/Phone: [facility] TRANSPORTATION ARRANGEMENTS: Transportation Arrangements: Car (Family to transport) ADDITIONAL CONTACT RESOURCES: [facility] not able to accept. [place] of choice provided and sent to first available to accept to her service area. [facility] willing to accept. Pt concerned she does not have [employer] part B to cover services. I spoke with maira who plans on paying for services out of pocket until pt's insurance becomes active February 18, 2021 Discharge Information Row Name ED to Hosp-Admission (Current) from 01/17/[address] [facility] Fax# Care to start after your appointment with internal medicine on 01/25/2021 for additional orders. The agency will be contacting you to set this up Durable Medical Equipment Agency [facility] [employer] Equipment Needed Walker was delivered to hospital room prior to discharge [facility] willing to accept pending pt has her initial appointment with internal medicine on 01/25/2021. Both pt and maira Davila were advised. Dr Hansen also provided script for outpt therapy should home care fall through or cost too high for grdtr to cover. Chloe to call [facility] to discuss further. Walker was delivered to room and prescription was sent to [facility]. Chloe to product picker. No other homegoing needs. SIGNATURE: ELIZABETH Kothari PATIENT NAME: Aislinn Wheeler DATE: January 21, 2021 TIME: 1:32 PM PAGER/CONTACT #: [phone] [id number] NoteHNO ID: [id number] Author: Derik Daniel Service: Care Management Author Type: Resource Center Packing Machine Operator Type: Care Mgt Progress Note Filed: 01/21/2021 11:24 AM Note Text: CARE MANAGEMENT PROGRESS NOTE SERVICE DATE: 01/21/2021 SERVICE TIME: 950 LOS: 4 days IMM Follow Up Copy Given: Yes Copy given to:: Patient Method: In Person SIGNATURE: Derik Harringtoniris María PATIENT NAME: Aislinn Wheeler DATE: January 21, 2021 TIME: 11:23 AM PAGER/CONTACT #: [phone] NoteHNO ID: [id number] Author: Ailyn Salas RN Service: Care Management Author Type: Registered Nurse Type: Care Mgt Progress Note Filed: 01/20/2021 3:29 PM Note Text: CARE MANAGEMENT PROGRESS NOTE SERVICE DATE: 01/20/2021 SERVICE TIME: 3:09 PM LOS: 3 days [place] of Choice Given: Yes Level of Care Discussed: Home Care Financial Disclosure Provided: No Financial Disclosure Comments: [facility] does not service area Provider [...] sent. Patient does not have a PCP. [facility] can provide a visiting provider [...] 20, 2021 TIME: 3:09 PM PAGER/CONTACT #: [phone] [id number] NoteHNO ID: [id number] Author: Inna Hansen DO Service: Hospital Medicine Author Type: Physician Type: Progress Notes Filed: 01/20/2021 12:37 PM Note Text: DEPARTMENT OF HOSPITAL MEDICINE PROGRESS NOTE SERVICE DATE: 01/20/2021 SERVICE TIME: 10:37 AM Hospital Medicine/Primary Attending: Inna Hansen DO NIGHT AND WEEKEND COVERAGE: DELMY COVERAGE: Days: [phone], please contact via OneID Nights: [phone], please page CC Hospitalist Night coverage pager [phone] Subjective INTERVAL HPI: nausea and vomiting this [...] Non-Pharmacologic VTE Prophylaxis/Anticoagulants 01/17/212214 pneumatic compression stockings ([place]) 01/17/212214 activity - mobilize patient ([place]) VTE Prophylaxis: VTE prophylaxis appropriate Disposition: TBD Inna Hansen DO January 20, 2021 10:39 [id number] NoteHNO ID: [id number] Author: Benjamin Bernal MD Service: Urology Author [...] Wendy Bernal MD January 19, 2021 4:12 [facility] NoteHNO ID: [id number] Author: Diana SernaD Service: Pharmacy Author Type: Pharmacist Type: Plan of Care Filed: 01/19/2021 11:02 AM Note Text: PHARMACY MEDICATION REVIEW Patient Name: Aislinn Wheeler : 1960 The following medications were updated within the [employer]PER[employer] medication list: Medications ADDED to [facility] [facility] medication list ? Albuterol HFA (replaced nebs) ? Levemir (replaced Lantus) Medications CHANGED on [facility] medication list ? Lyrica (added instructions) ? Symbicort (added instructions) Medications REMOVED from [facility] medication list ? Diltiazem ? Cymbalta ? [...] nothing too big . Call placed to [facility] pharmacy to clarify prescribed dose of insulin, and the only prescription for insulin [facility] has on file is for Relion 70/30 inject 25 units BID. [facility] pharmacist states this was prescribed 02/19/2020 but never picked up. The below information represents the best possible medication history: Yes Medication history completed by: Pharmacist: Shelby Lucero PharmD Source of history: Patient: Reliability of source: Appears reliable, clearly identified: Medication name and Pharmacy records: SureScripts data, [facility] pharmacy (phone call) Medication nonadherence identified: Unable to assess - it is clear the patient is noncompliant with her medications (admits she has been off her meds, no insulin fills at [facility] despite patient report), but at this time unable to assess reason for nonadherence. Reconciliation completed: Yes All [facility] medications addressed by LIP and Medication reconciliation completed by: Shelby Lucero PharmD Medications with dose or frequency intentionally adjusted at admission: ? Morrison modified to 5/325 mg q6h PRN New medications at admission: ? Ceftriaxone Note patient ordered insulin regimen (Lantus 15 units QHS + sliding scale Humalog) and based on blood glucose readings, this is appropriate Patient interested in Bedside Delivery Services or using [facility] OP Pharmacy at discharge? Unable to assess Preferred outpatient pharmacy: [facility] [address] [place] [address] [address] [facility] - [phone] Allergies: Latex Rash Comment:Added based on information [...] as instructed twice daily. Shelby Lucero, PharmD 01/19/2021voblessing [id number] NoteHNO ID: [id number] Author: Inna Hansen DO Service: Hospital Medicine Author Type: Physician Type: Progress Notes Filed: 01/19/2021 2:24 PM Note Text: DEPARTMENT OF HOSPITAL MEDICINE PROGRESS NOTE SERVICE DATE: 01/19/2021 SERVICE TIME: 9:30 AM Hospital Medicine/Primary Attending: Inna Hansen DO NIGHT AND WEEKEND COVERAGE: DELMY COVERAGE: Days: [phone], please contact via Avocado™ SecureWebSafet[employer]age Nights: [phone], please page CC Hospitalist Night coverage pager [phone] Subjective INTERVAL HPI: no overnight events. Denies [...] Most recent imaging Assessment/Plan Problem List Sepsis ([facility]) POA: Yes Pyelonephritis POA: Yes Hydronephrosis due to obstruction of ureter POA: Yes Acute cystitis without hematuria POA: Unknown Acute bilateral obstructive uropathy POA: Yes Hyponatremia POA: Yes ANATOLIY (acute kidney injury) ([facility]) POA: Yes Hyperkalemia POA: Yes Principal Problem: Sepsis ([facility]) Pyelonephritis Complicated UTI Hydronephrosis due [...] Non-Pharmacologic VTE Prophylaxis/Anticoagulants 01/17/212214 pneumatic compression stockings ([place]) 01/17/212214 activity - mobilize [place] ([place] VTE Prophylaxis: VTE prophylaxis appropriate Disposition: Home Discussed with granddaughter Chloe by phone with patient's permission. Inna Hansen DO January 19, 2021 9:33 [id number] History of Past illness Narrative* Problem Noted Date Resolved Date Acute cystitis without hematuria 01/18/2021 01/21/2021 Pyelonephritis 01/17/2021 01/21/2021 Sepsis 01/17/2021 01/21/2021 Hyponatremia 01/17/2021 01/21/2021 Hyperkalemia 01/17/2021 01/21/2021 Hydronephrosis due to obstruction of ureter 12/2101/21/2021 documented as of this encounter (statuses as of 01/27/2021) [facility] History of Past illness Narrative* Problem Noted Date Diagnosed Date Resolved Date Acute cystitis without hematuria 01/18/2021 01/21/2021 Pyelonephritis 01/17/2021 01/21/2021 Sepsis 01/17/2021 01/21/2021 Hyponatremia 01/17/2021 01/21/2021 Hyperkalemia 01/17/2021 01/21/2021 Hydronephrosis due to obstruction of ureter 01/17/2021 01/21/2021 documented as of this encounter (statuses as of 06/09/2023) [facility] History of Past illness Narrative* Problem Noted Date Diagnosed Date Resolved Date Acute cystitis without hematuria 01/18/2021 01/21/2021 Pyelonephritis 01/17/2021 01/21/2021 Sepsis 01/17/2021 01/21/2021 Hyponatremia 01/17/2021 01/21/2021 Hyperkalemia 01/17/2021 01/21/2021 Hydronephrosis due to obstruction of ureter 01/17/2021 01/21/2021 documented as of this encounter (statuses as of 06/15/2023) [facility] History of Past illness Narrative* Problem Noted Date Diagnosed Date Resolved Date Acute cystitis without hematuria 01/18/2021 01/21/2021 Pyelonephritis 01/17/2021 01/21/2021 Sepsis 01/17/2021 01/21/2021 Hyponatremia 01/17/2021 01/21/2021 Hyperkalemia 01/17/2021 01/21/2021 Hydronephrosis due to obstruction of ureter 01/17/2021 01/21/2021 documented as of this encounter (statuses as of 06/19/2023) [facility] History of Past illness Narrative* Problem Noted Date Diagnosed Date Resolved Date Acute cystitis without hematuria 01/18/2021 01/21/2021 Pyelonephritis 01/17/2021 01/21/2021 Sepsis 01/17/2021 01/21/2021 Hyponatremia 01/17/2021 01/21/2021 Hyperkalemia 01/17/2021 01/21/2021 Hydronephrosis due to obstruction of ureter 01/17/2021 01/21/2021 documented as of this encounter (statuses as of 06/23/2023) [facility] History of Past illness Narrative* Problem Noted Date Diagnosed Date Resolved Date Acute cystitis without hematuria 01/18/2021 01/21/2021 Pyelonephritis 01/17/2021 01/21/2021 Sepsis 01/17/2021 01/21/2021 Hyponatremia 01/17/2021 01/21/2021 Hyperkalemia 01/17/2021 01/21/2021 Hydronephrosis due to obstruction of ureter 01/17/2021 01/21/2021 documented as of this encounter (statuses as of 07/05/2023) [facility]21 NoteHNO ID: [id number] Author: Inna Hansen DO Service: Hospital Medicine Author Type: Physician Type: Progress Notes Filed: 01/18/2021 4:10 PM Note Text: DEPARTMENT OF HOSPITAL MEDICINE PROGRESS NOTE SERVICE DATE: 01/18/2021 SERVICE TIME: 8:57 AM Hospital Medicine/Primary Attending: Inna Hansen DO NIGHT AND WEEKEND COVERAGE: DELMY COVERAGE: Days: [phone], please contact via Control4sage Nights: [phone], please page CC Hospitalist Night coverage pager [phone] Subjective INTERVAL HPI: no overnight events. Denies [...] Non-Pharmacologic VTE Prophylaxis/Anticoagulants 01/17/212214 pneumatic compression stockings ([place]) 01/17/212214 activity - mobilize patient ([place]) VTE Prophylaxis: VTE prophylaxis appropriate Disposition: Home SIGNATURE: Inna Hansen DO PATIENT NAME: Aislinn Wheeler DATE: January 18, 2021 TIME: 8:57 [facility] CenterVshvsvnk05-15-1308 NoteHNO ID: [id number] Author: Taurus Ballard MD Service: Urology Author [...] cause of her urinary retention. Taurus Ballard [facility] [id number] NoteHNO ID: [id number] Author: RT Dayanara(R) Service: Radiology Author Type: Softball Umpire Type: Progress Notes Filed: 01/17/2021 8:04 PM [...] BY: RT Dayanara(R) January 17, 2021 8:03 [facility] HospitalMnjnttll19-27-7674 NoteHNO ID: [id number] Author: RT Dayanara(R) Service: Radiology Author Type: Softball Umpire Type: Progress Notes Filed: 01/17/2021 5:30 PM [...] BY: RT Dayanara(R) January 17, 2021 5:30 [facility] HospitalVuffdmkl88-37-1911 NoteHNO ID: [id number] Author: RT Zaynab(R) Service: Radiology Author Type: Softball Umpire Type: Progress Notes Filed: 01/17/2021 4:23 PM [...] Workman RT (R) January 17, 2021 4:22 [facility] HospitalMcwdtcyj84-26-2486 NoteHNO ID: [id number] Author: AHSAN Barlow Service: ? Author Type: Clinical Softball Umpire Type: Progress Notes Filed: 01/17/2021 4:19 PM [...] BY: AHSAN Dozier January 17, 2021 4:19 [facility] Future Appointments Appointment Date:12/13/2022 03:00:00 PM Scheduled Provider:HEIDY ARNOLD PA-C Location:[facility] Appointment Type:URO Office Visit [facility] evaluation + Plan note Future Appointments Appointment Date:10/26/2022 10:00:00 AM Scheduled Provider:Lisa Porras MD Location:[facility] Appointment Type:URO Office Visit Appointment Date:12/13/2022 03:00:00 PM Scheduled Provider:HEIDY ARNOLD PA-C Location:[facility] Appointment Type:URO Office Visit [facility] evaluation + Plan note Future Appointments Appointment Date:05/03/2023 10:00:00 AM Scheduled Provider:Lisa Porras MD Location:[facility] Appointment Type:URO Office Visit [facility] evaluation + Plan note Future Appointments Appointment Date:05/03/2023 10:00:00 AM Scheduled Provider:Lisa Porras MD Location:[facility] Appointment Type:URO Office Visit Diagnostic Tests Pending * Urine Culture [facility] Future Appointments Appointment Date:05/15/2023 12:30:00 PM Scheduled Provider: Location:[facility] Appointment Type:Urology CALL PAT FT Appointment Date:05/22/2023 10:30:00 AM Scheduled Provider: Location:[facility] Appointment Type:Urology FT Diagnostic Tests Pending * Urine Culture [facility] Future Appointments Appointment Date:06/28/2023 10:45:00 AM Scheduled Provider:Lisa Porras MD Location:[facility] Appointment Type:[facility]O [facility] Future Appointments Appointment Date:06/28/2023 10:45:00 AM Scheduled Provider:Lisa Porras MD Location:[facility] Appointment Type:URO Office Visit Diagnostic Tests Pending * Urine Culture [facility]08[facility] Future Appointments Appointment Date:07/18/2023 11:20:00 AM Scheduled Provider:HEIDY ARNOLD PA-C Location:[facility] Appointment Type:URO Office Visit [facility] Evaluation + Plan note Future Appointments Appointment Date:10/10/2023 11:40:00 AM Scheduled Provider:HEIDY ARNOLD PA-C Location:[facility] Appointment Type:URO Office Visit [facility] evaluesbbn noteNo InformationNort [employer] Other evaluation note* Diagnosis Kidney cyst, acquired- Primary Acquired cyst of kidney [facility] Diagnosis Reflex sympathetic dystrophy of right upper extremity documented [facility] noteNo assessment information available [facility] Work Phone: evaluation note* Diagnosis Reflex sympathetic dystrophy of right upper extremity Complex regional pain syndrome type 1 of right upper extremity documented in this encounter [facility] [employer] note* Diagnosis Reflex sympathetic dystrophy of right upper extremity Complex regional pain syndrome type 1 of right upper extremity documented in this encounter [facility] [employer] [facility] general Narrative - Reported* Type Description [...] History SEE ABOVE SURGERY Hospitalization History [facility] 2015 Hospitalization History [facility] SEPSIS 05/2022 [place] [employer] Other history general Narrative - Reported* Type [...] History SEE ABOVE SURGERY Hospitalization History [facility] 2015 Hospitalization History [facility] SEPSIS 05/2022 [facility] [employer] Other Hospital course Narrative No data available for this section [facility] Hospital Discharge instructions No data available for this section [facility] Eyelation InstructionsNot on filedocumented in this encounter [facility]ructionsNot on filedocumented in this encounter [facility] System[facility] note No data available for this section [facility] reason for referral (narrative)* Diagnostic Procedure Only (Routine) - Pending Review Specialty Diagnoses / Procedures Referred By Danny t Referred To Contact US IMAGING Diagnoses Kidney cyst, acquired Procedures US KIDNEY/BLADDER US RETROPERITONEAL REAL TIME W/IMAGE COMPLETE Taurus Ballard MD [address] [place] [address] [facility] [place] [address] Referral ID Status Reason Start Date Expiration Date Visits Requested Visits Authorized [id number] Pending Review Auto-Generat ed Referral 10/05/2023 08/03/2024 1 1 [facility] for visit NarrativeReferral Latosha Olmstead, New pt Type 2 IDDM apt with [employer] PROGRAMMING INSTRUCTOR, HELP DESK 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-C, [facility] [employer] Other Summary Purpose Family History No Family [...] FoundDocuments on File Type Date Recorded Patient Immunochemist Expl anation Advance Directive(s) 01/17/2021 3:49 PM Reason for Referral Referred by: Vern TAVERAS, Lisa Montiel Chief Complaint and Reason for Visit Chief Complaint Renal 4 Month Follow Up Additional Source Comments INFORMATION SOURCE (unrecogn ized section and content) DATE CREATED AUTHOR 01/23/2021 [facility] DATE CREATED AUTHOR AUTHOR'S ORGANIZ ATION 01/04/2023 [facility] DATE CREATED AUTHOR AUTHOR'S ORGANIZ ATION 06/19/2023 [facility] DATE CREATED AUTHOR AUTHOR'S ORGANIZ ATION 09/28/2023 [facility] DATE CREATED AUTHOR AUTHOR'S ORGANIZ ATION 10/19/2023 [facility] DATE CREATED AUTHOR AUTHOR'S ORGANIZ ATION 11/03/2023 [facility] DATE CREATED AUTHOR AUTHOR'S ORGANIZ ATION 12/15/2023 [facility] DATE CREATED AUTHOR AUTHOR'S ORGANIZ ATION 12/23/2023 [facility] dical Specialists EPIC Source Comments (unrecognize d section and content) In the event this informatio n is protected by the Federal Confidentiality of Alcohol and Drug Abuse Patient Records regulations: The Federal rules restrict any use of the information to criminally investigate or prosecute any alcohol or drug abuse patient.[facility] Hospital[facility] the event this information is protected by the Federal Confidentiality of Alcohol and Drug Abuse Patient Records regulations: The Federal rules restrict any use of the information to criminally investigate or prosecute any alcohol or drug abuse patient.[facility] Hospital[facility] the event this information is protected by the Federal Confidentiality of Alcohol and Drug Abuse Patient Records regulations: The Federal rules restrict any use of the information to criminally investigate or prosecute any alcohol or drug abuse patient.[facility] HospitalIn the event this information is protected by the Federal Confidentiality of Alcohol and Drug Abuse Patient Records regulations: The Federal rules restrict any use of the information to criminally investigate or prosecute any alcohol or drug abuse patient.[facility] HospitalIn the event this information is protected by the Federal Confidentiality of Alcohol and Drug Abuse Patient Records regulations: The Federal rules restrict any use of the information to criminally investigate or prosecute any alcohol or drug abuse patient.[facility] HospitalIn the event this information is protected by the Federal Confidentiality of Alcohol and Drug Abuse Patient Records regulations: The Federal rules restrict any use of the information to criminally investigate or prosecute any alcohol or drug abuse patient.[facility] HospitalIn the event this information is protected by the Federal Confidentiality of Alcohol and Drug Abuse Patient Records regulations: The Federal rules restrict any use of the information to criminally investigate or prosecute any alcohol or drug abuse patient.[facility] HospitalIn the event this information is protected by the Federal Confidentiality of Alcohol and Drug Abuse Patient Records regulations: The Federal rules restrict any use of the information to criminally investigate or prosecute any alcohol or drug abuse patient.[facility] HospitalIn the event this information is protected by the Federal Confidentiality of Alcohol and Drug Abuse Patient Records regulations: The Federal rules restrict any use of the information to criminally investigate or prosecute any alcohol or drug abuse patient.[facility] Reason for Visit (unrecogniz ed section and content) Reason Comments Appointment Reason Comments Follow Up Reason Comments Pre-Op Teaching Reason Comments Surgical Followup Reason Onset Date Comments Med Refill 09/07/2023 Reason Onset Date Comments Research F/U 09/26/2023 Reason Onset Date Comments Research F/U 09/27/2023 Reason Onset Date Comments Med Refill 10/10/2023 Reason Onset Date Comments Med Refill 11/06/2023 Patient Care team informatio n (unrecognized section and content) [place] Hardware Installer Relationship Specialty Start Date End Date Latosha Olmstead [address] [place] [place] [address] PCP - General 05/17/23 Lisa Porras MD [address] [place] [address] Referring Urology 05/11/23 [place] Hardware Installer Relationship Specialty Start Date End Date Latosha Olmstead [address] [place] [address] [place] [address] PCP - General 05/17/23 Lisa Porras MD [address] [place] [address] Referring Urology 05/11/23 [place] Hardware Installer Relationship Specialty Start Date End Date Latosha Olmstead [address] [place] [address] PCP - General 05/17/23 Lisa Porras MD [address] [place] [address] Referring Urology 05/11/23 [place] Hardware Installer Relationship Specialty Start Date End Date Latosha Olmstead [address] [place], [place] [address]te[place] [address] PCP - General 05/17/23 Lisa Porras MD [address] [place] [address] Referring Urology 05/11/23 [place] Hardware Installer Relationship Specialty Start Date End Date Latosha Olmstead APRN-CERTIFIED MEDICAL BILLER [address] [place] [phone] PCP - General Nurse Practitioner 11/10/22 [place] Hardware Installer Relationship Specialty Start Date End Date Latosha Olmstead [address] [place] [address] PCP - General 05/17/23 Lisa Porras MD [address] [place] [address] Referring Urology 05/11/23 [place] Hardware Installer Relationship Specialty Start Date End Date Latosha Olmstead [address] [place] [address] PCP - General 05/17/23 Lisa Porras MD [address] [place] [address] Referring Urology 05/11/23 Team Status: Active Member Role Status Dates Sumi Lentz APRN CHIEF CONTROLLER TOWER-C Primary Care Provider Active Team Status: Inactive Member Role Status Dates Eli Sprague MD Attending Provider Active Star t: August 01, 2023 End: August 01, 2023 [place] Hardware Installer Relationship Specialty Start Date End Date Latosha Olmstead APRN-CERTIFIED MEDICAL BILLER [address] [place] [id number] PCP - General Nurse Practitioner 11/10/22 [place] [employer] Relationship Specialty Start Date End Date Latosha Olmstead APRN-CERTIFIED MEDICAL BILLER [address] [place] [phone] PCP - General Nurse Practitioner 3/23/23 Goals (unrecognized section and content) Goals may [...] BE BASED ON THE PRIMARY CLINICAL RECORDS. [facility] [employer] [facility]. provides no warranty or guarantee of the accuracy or completeness of information in this document.
[2024-01-11 07:24] LABS: Glucometer 183 mg/dL (74-106)
[2024-01-11] MEDS: METOPROLOL SUCCINATE 50 MG TAB.ER.24H PO (08:14)
[2024-01-11] MEDS: AMLODIPINE BESYLATE 5 MG TABLET PO (08:14)
[2024-01-11] MEDS: FERROUS SULFATE 325 MG TABLET PO (08:14)
[2024-01-11] MEDS: INSULIN ASPART 300 UNIT/3 ML PEN SUBQ ×2 (08:14→11:18)
[2024-01-11] MEDS: PREGABALIN 75 MG CAPSULE 150 MG PO (08:16)
[2024-01-11] MEDS: HYDROCODONE/ACET 5-325 MG TABLET 1.5 TAB PO (08:19)
--- NOTE | 2024-01-11 09:39 | CM.NOTE ---
Rounds made with Dr. Marr, possible discharge to home this afternoon. CASINO INVESTIGATOR will evaluate pt for further decision making regarding discharge. Pt up ad sahil in room. No discharge needs identified.
--- NOTE | 2024-01-11 09:54 | CM.NOTE ---
Medicare Outpatient Observation Notice discussed with pt, pt verbalizes understanding and signs paper. Original given to pt and copy placed on pt's chart.
[2024-01-11 10:56] LABS: Glucometer 146 mg/dL (74-106)
--- NOTE | 2024-01-11 11:13 | P.DS_ITS ---
<Statement entered by Kapil Marr MD - 01/11/24 20:51> This documentation has been reviewed and approved. Pt seen and examined at bedside, agree with input and finding from Nurse practitioner. DS: Providers Provider Date of admission: 01/10/24 15:40 Primary care physician: Latosha Olmstead NP Consults: 01/10/24 16:53 Physical Therapy Eval and Treat Routine Reason for consultation: Generlized weakness Has provider been notified: No 01/10/24 16:54 Occupational Therapy Eval and Treat Routine Reason for consultation: generalized weakness Has provider been notified: No Discharging clinician: Suzy Bruce DS: Diagnosis Discharge Diagnosis (1) Hypertensive urgency: (2) DM2 (diabetes mellitus, type 2): (3) Chronic renal insufficiency: (4) Neuropathy: DS: Summary Hospital Course Hospital Course: The patient was admitted with hypertensive urgency, with associated dizziness and headache, after reporting to the ER with a blood pressure of 222/110. She was treated with PRN Hydralazine and amlodipine was added to her hypertensive med regimen. Her blood pressure was adequately controlled with these measures but was not yet at goal. A renal artery duplex US was obtained to assess for possible renal artery stenosis. This revealed non-obstructive moderate to severe R hydronephrosis and moderate L hydronephrosis of unclear etiology. In addition, moderate L renal artery stenosis was noted and may be contributing to her uncontrolled HTN and worsening CKD 3b/4. As the pt's BP was improved and her symptoms had mostly resolved, she was discharged home in stable condition. She was prescribed amlodipine at discharge. She should follow up with her PCP within one week. She was strongly urged to follow up with her [facility] reinforcement maker SHIRLEY (who recently removed a L renal mass) for further evaluation of her hydronephrosis and arterial stenosis. Time Spent with Patient Time attestation: Total time spent providing and/or coordinating discharge services: Time spent: greater than 30 minutes Specific discharge activities: Physical exam, discussion of discharge plan, questions answered. Exam Constitutional Vital Signs, click to edit/add: Last Vital Signs Temp 97.6 F 01/11/24 08:21 Pulse 63 01/11/24 08:21 Resp 18 01/11/24 08:21 BP 159/80 H 01/11/24 08:21 Pulse Ox 95 01/11/24 08:21 O2 Del Method Room Air 01/11/24 08:21 Common normals: no apparent distress, oriented x3 and alert General appearance: cooperative Orientation/consciousness: Yes awake HENMT Common normals: normocephalic and head/scalp atraumatic Eye Common normals: PERRL, EOMs intact bilaterally, conjunctivae normal and no scleral icterus Neck & C-Spine Common normals: no JVD Respiratory Common normals: normal respiratory effort and no use of accessory muscles Effort & inspection: able to speak in complete sentences and symmetric chest movement Cardio Common normals: no JVD, regular rate, regular rhythm, S1 normal heart sound, S2 normal heart sound, no murmurs and peripheral pulses 2+ throughout GI Common normals: Normal to inspection, nondistended, normoactive bowel sounds present, soft to palpation and non-tender Palpation: soft Bladder/kidney exam: bladder normal to palpation Extremity Common normals: normal to inspection, full ROM, normal capillary refill and no pedal edema General: no clubbing and no cyanosis Neuro Common normals: moves all extremities, no focal motor deficits and no sensory deficits noted Speech: speech normal Psych Common normals: mental status grossly normal and activity/motor behavior normal DS: Data Data Completed and Pending Labs on day of discharge: Labs from last 24 hours 01/11/24 01/11/24 01/11/24 10:55 07:23 04:55 WBC 5.0 RBC 4.28 Hgb 10.4 L Hct 34.1 L MCV 79.7 L MCH 24.3 L MCHC 30.5 RDW 16.7 H Plt Count 284 MPV 10.6 Neut % (Auto) 38.3 L Lymph % (Auto) 50.4 [place] % (Auto) 7.3 Eos % (Auto) 3.0 Baso % (Auto) 0.8 Neut # (Auto) 1.9 Lymph # (Auto) 2.5 [place] # (Auto) 0.4 Eos # (Auto) 0.2 Baso # (Auto) 0.0 Abs Immat Gran (auto) 0.01 Imm/Tot Granulo (auto) 0.2 Sodium 134 L Potassium 5.0 Chloride 105 Carbon Dioxide 23.2 Anion Gap 10.8 BUN 40.0 H Creatinine 1.97 H Est GFR ( Amer) 31 L Est GFR (Non-Af Amer) 25 L BUN/Creatinine Ratio 20.3 Glucose 220 H Estimat Average Glucose 232 Hemoglobin A1c 9.7 H Lactate Calcium 8.7 Total Bilirubin 0.2 AST 21 ALT 23 Alkaline Phosphatase 85 Troponin I High Sens Total Protein 7.4 Albumin 2.8 L Globulin 4.6 Albumin/Globulin Ratio 0.6 Urine Color Urine Clarity Urine pH Ur Specific Page Urine Protein Urine Glucose (UA) Urine Ketones Urine Occult Blood Urine Nitrite Urine Bilirubin Urine Urobilinogen Ur Leukocyte Esterase Urine RBC Urine WBC Ur Squamous Epith Cells Urine Crystals Urine Bacteria Urine Casts Urine Mucus POC Glucose 146 H 183 H 01/10/24 01/10/24 01/10/24 20:58 17:35 17:25 WBC RBC Hgb Hct MCV MCH MCHC RDW Plt Count MPV Neut % (Auto) Lymph % (Auto) [place] % (Auto) Eos % (Auto) Baso % (Auto) Neut # (Auto) Lymph # (Auto) [place] # (Auto) Eos # (Auto) Baso # (Auto) Abs Immat Gran (auto) Imm/Tot Granulo (auto) Sodium Potassium Chloride Carbon Dioxide Anion Gap BUN Creatinine Est GFR ( Amer) Est GFR (Non-Af Amer) BUN/Creatinine Ratio Glucose Estimat Average Glucose Hemoglobin A1c Lactate Calcium Total Bilirubin AST ALT Alkaline Phosphatase Troponin I High Sens Total Protein Albumin Globulin Albumin/Globulin Ratio Urine Color Lt. yellow Urine Clarity Clear Urine pH 6.0 Ur Specific Page 1.010 Urine Protein 30 A Urine Glucose (UA) Negative Urine Ketones Negative Urine Occult Blood Negative Urine Nitrite Negative Urine Bilirubin Negative Urine Urobilinogen 0.2 Ur Leukocyte Esterase Trace A Urine RBC 0-2 Urine WBC 0-2 A Ur Squamous Epith Cells Rare Urine Crystals None seen Urine Bacteria Trace A Urine Casts None seen Urine Mucus None seen POC Glucose 131 H 183 H 01/10/24 12:39 WBC 6.5 RBC 4.45 Hgb 10.9 L Hct 35.3 L MCV 79.3 L MCH 24.5 L MCHC 30.9 RDW 16.3 H Plt Count 299 MPV 10.7 Neut % (Auto) 49.0 Lymph % (Auto) 41.0 [place] % (Auto) 6.6 Eos % (Auto) 2.3 Baso % (Auto) 0.6 Neut # (Auto) 3.2 Lymph # (Auto) 2.7 [place] # (Auto) 0.4 Eos # (Auto) 0.2 Baso # (Auto) 0.0 Abs Immat Gran (auto) 0.03 Imm/Tot Granulo (auto) 0.5 Sodium 137 Potassium 5.0 Chloride 106 Carbon Dioxide 20.7 L Anion Gap 15.3 BUN 45.0 H Creatinine 2.08 H Est GFR ( Amer) 29 L Est GFR (Non-Af Amer) 24 L BUN/Creatinine Ratio 21.6 Glucose 159 H Estimat Average Glucose Hemoglobin A1c Lactate 0.4 Calcium 8.8 Total Bilirubin 0.3 AST 18 ALT 20 Alkaline Phosphatase 98 Troponin I High Sens 7.2 Total Protein 8.9 H Albumin 3.4 Globulin 5.5 Albumin/Globulin Ratio 0.6 Urine Color Urine Clarity Urine pH Ur Specific Page Urine Protein Urine Glucose (UA) Urine Ketones Urine Occult Blood Urine Nitrite Urine Bilirubin Urine Urobilinogen Ur Leukocyte Esterase Urine RBC Urine WBC Ur Squamous Epith Cells Urine Crystals Urine Bacteria Urine Casts Urine Mucus POC Glucose Imaging Chest x-ray: Radiologist's impression: IMPRESSION: Minimal left basilar linear infiltrate, atelectasis favored over pneumonia CT scan - head: Radiologist's impression: IMPRESSION: No acute intracranial process. Renal Artery Doppler: Radiologist's impression: IMPRESSION: Mildly increased renal cortical echotexture, consider medical renal disease Moderate to severe right and moderate left hydronephrosis of unknown etiology Elevated flow velocity left mid renal artery, which could result in renovascular hypertension Discharge Plan Discharge Disposition: Home, Self-Care Condition: Fair Discharge Medications: New amlodipine 5 mg Tablet 5 mg PO QD 30 Days Qty: 30 0RF Continued insulin lispro 100 unit/mL insulin pen 1 sliding scale dose SUBCUT QID pregabalin 150 mg capsule 150 mg PO Q8H metoprolol succinate 50 mg tablet extended release 24 hr 50 mg PO DAILY ferrous sulfate [FeroSul] 325 mg (65 mg iron) tablet 325 mg PO DAILY ondansetron 4 mg tablet,disintegrating 4 mg PO Q4H PRN (Reason: nausea and vomiting) 3 Days Qty: 6 0RF hydrocodone-acetaminophen 7.5-325 mg tablet 1 tab PO Q8H PRN (Reason: pain) Changed insulin glargine [Lantus Solostar U-100 Insulin] 100 unit/mL (3 mL) insulin pen 28 unit subcut QPM Qty: 0 0RF Activity: resume usual activities as tolerated Diet: advance to your usual diet Print Language: Mohawk Patient Instructions: Weakness (DC), Hypertensive Crisis (DC) Activity Restrictions/Additional Instructions: - Follow up with [facility] Nephrology SHIRLEY regarding hydronephrosis (Right, non-obstructive), and renal artery stenosis (Left) Forms: Portal Instructions Follow Up Appointments: January 16 @ 10am with Latosha Olmstead NP [phone] Discharge Date/Time: 01/11/24 11:56
--- NOTE | 2024-01-11 14:34 | CM.DCFOLLOWU ---
LUIS Almonte received information from [facility] on pt. Suzy would like pt to be set up with f/u appt. Called Dr. Ballard office and scheduled pt appt for tomorrow [place] office 1:45, [phone] Katelynn Ruggiero Called pt at home and provided her with the information and appointment details.
--- NOTE | 2024-01-11 14:56 | CM.NOTE ---
Faxed clinical information to Dr. Ballard office for pt's f/u appt 01/13 per office request. Talked with pt and pt's granddaughter. LUIS Almonte updated with pt's appt and faxing clinical records for continuation of care.
--- NOTE | 2024-01-12 12:41 | CM.DCFOLLOWU ---
01/11- No answer 1st attempt
--- NOTE | 2024-01-16 15:00 | CM.DCFOLLOWU ---
01/15- No answer 1st attempt
== END 2024-01-11 11:56 | disposition home or self-care (01) ==
LOC: ER 14:51 → MS 20:32
PROVIDERS: Admitting Provider Family Medicine; Emergency Provider Emergency Medicine; PCP Nurse Practitioner; Visit Provider Nurse Practitioner
DX: I16.0 Hypertensive urgency (principal); I12.9 Hypertensive chronic kidney disease with stage 1 through stage 4 chronic kidney disease, or unspecified chronic kidney disease; E11.22 Type 2 diabetes mellitus with diabetic chronic kidney disease; N18.4 Chronic kidney disease, stage 4 (severe); E11.65 Type 2 diabetes mellitus with hyperglycemia; G62.9 Polyneuropathy, unspecified; I70.1 Atherosclerosis of renal artery; N13.30 Unspecified hydronephrosis; Z79.4 Long term (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; Z87.440 Personal history of urinary (tract) infections; Z79.899 Other long term (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
CPT/HCPCS: 36415; 70450; 71045; 76775; 80053; 81001; 82948; 83036; 83605; 84484; 85025; 87040; 93005; 93975; 96374; 96375; 97161; 97165; 99285; G0378

== ENCOUNTER 2024-01-18 07:28 | Outpatient (RCR) | payer MEDICARE, SELFPAY ==
[2024-01-18 10:50] VITALS: BP 180/83; PULSE 64; TEMP 36.4; O2SAT 98
[2024-01-18] MEDS: IRON SUCROSE COMPLEX 200 MG in 0.9 % SODIUM CHLORIDE 100 ML 220 MG IV (11:03)
[2024-01-18] MEDS: DENOSUMAB 60 MG/ML SYRINGE SUBQ (11:04)
--- NOTE | 2024-01-18 11:15 | PC.NURSE ---
patient educated on prolia and need to betaking 1200mg of calcium as well as 600 iu of vitamin d daily. verbalizes understanding
== END 2024-01-19 23:59 | disposition home or self-care (01) ==
LOC: INF 07:28
PROVIDERS: PCP Nurse Practitioner; Visit Provider Nurse Practitioner
DX: D50.9 Iron deficiency anemia, unspecified (principal); M81.0 Age-related osteoporosis without current pathological fracture; N30.00 Acute cystitis without hematuria
CPT/HCPCS: 81003; 87086; 96365; 96372; J0897; J1756

== ENCOUNTER 2024-01-18 10:29 | Outpatient (REF) | payer MEDICARE, SELFPAY ==
[2024-01-18 12:40] LABS: Bilirubin Urine NEGATIVE (NEGATIVE); Blood Urine NEGATIVE (NEGATIVE); Clarity Urine CLEAR (CLEAR); Color Urine LT. YELLOW (YELLOW); Glucose Urine UA 100 mg/dL (NEGATIVE); Ketones Urine NEGATIVE (NEGATIVE); Leukocyte Esterase Urine NEGATIVE (NEGATIVE); Nitrite Urine NEGATIVE (NEGATIVE); Protein Urine 100 mg/dL (NEG/TRACE); Specific Gravity Urine 1.015 (1.005-1.025); Urobilinogen Urine 0.2 EU/dL (0.2-1.0)
[2024-01-18 12:55] LABS: Urine Microscopic Indicated NO
== END 2024-01-18 10:30 | disposition home or self-care (01) ==
LOC: LAB 10:29
PROVIDERS: PCP Nurse Practitioner; Visit Provider Nurse Practitioner
DX: N30.00 Acute cystitis without hematuria (principal)
CPT/HCPCS: 81003; 87086

== ENCOUNTER 2024-01-25 07:25 | Outpatient (RCR) | payer MEDICARE, SELFPAY ==
[2024-01-20 00:05] VITALS: BP 180/83; PULSE 64; TEMP 36.4; O2SAT 98
[2024-01-25 10:30] VITALS: BP 182/87; PULSE 68; TEMP 36.4; O2SAT 98
[2024-01-25] MEDS: IRON SUCROSE COMPLEX 200 MG in 0.9 % SODIUM CHLORIDE 100 ML 220 MG IV (10:49)
--- NOTE | 2024-01-25 11:29 | PC.NURSE ---
Patient is here for iron infusion, vitals obtained and stable, IV started with good blood return. She tolerated iron infusion well without any complaints, IV discontinued and pt was discharged home ambulatory.
== END 2024-01-25 14:03 | disposition home or self-care (01) ==
LOC: INF 07:25
PROVIDERS: PCP Nurse Practitioner; Visit Provider Nurse Practitioner
DX: D50.9 Iron deficiency anemia, unspecified (principal)
CPT/HCPCS: 96365; J1756

== ENCOUNTER 2024-02-05 15:55 | Outpatient (OUT) | payer MEDICARE, SELFPAY | END 2024-02-05 15:56 | disposition home or self-care (01) | LOC: WC 15:55 | PROVIDERS: PCP Nurse Practitioner; Visit Provider Physician Assistant | DX: E11.621 Type 2 diabetes mellitus with foot ulcer (principal); L97.522 Non-pressure chronic ulcer of other part of left foot with fat layer exposed | CPT/HCPCS: G0463 ==

== ENCOUNTER 2024-03-04 08:59 | Outpatient (OUT) | payer MEDICARE, SELFPAY ==
[2024-03-04 10:15] LABS: Basophils Absolute Auto 0.1 10^3/uL (0.0-0.1); Basophils Percent Auto 0.7 % (0.2-2.0); Eosinophils Absolute Auto 0.1 10^3/uL (0.0-0.7); Eosinophils Percent Auto 1.8 % (0.9-7.0); Hemoglobin 12.4 g/dL (12.0-16.0); Immature Granulocytes Abs Auto 0.02 10^3/uL (0.00-0.03); Immature Granulocytes Pct Auto 0.3 % (0.0-0.5); Lymphocytes Absolute Auto 1.7 10^3/uL (1.2-3.8); Lymphocytes Percent Auto 23.4 % (20.5-60.0); Mean Corpuscular HGB Conc 31.8 g/dL (29.9-35.2); Mean Corpuscular Hemoglobin 25.9 pg (26.7-34.0); Mean Corpuscular Volume 81.4 fL (81.0-99.0); Mean Platelet Volume 11.2 fL (9.5-13.5); Monocytes Absolute Auto 0.4 10^3/uL (0.3-0.8); Monocytes Percent Auto 4.9 % (1.7-12.0); Neutrophils Absolute Auto 5.1 10^3/uL (1.4-6.5); Neutrophils Percent Auto 68.9 % (43.0-75.0); Platelet Count 236 10^3/uL (150-450); Red Blood Count 4.79 10^6/uL (4.20-5.40); Red Cell Distribution Width 15.1 % (11.0-15.0); White Blood Count 7.4 10^3/uL (4.0-11.0)
[2024-03-04 10:45] LABS: Estimated Average Glucose 171 mg/dL; Glycohemoglobin A1C 7.6 % (4.5-6.2)
[2024-03-04 10:57] LABS: Alanine Aminotransferase 15 U/L (14-59); Albumin Globulin Ratio 0.7; Albumin Level 3.2 g/dL (3.4-5.0); Alkaline Phosphatase 75 U/L (46-116); Anion Gap 14.8; Aspartate Amino Transferase 16 U/L (15-37); Bilirubin Total 0.3 mg/dL (0.2-1.0); Calcium 7.9 mg/dL (8.5-10.1); Carbon Dioxide 21.1 mmol/L (21.0-32.0); Chloride 109 mmol/L (98-107); Estimated GFR (African America 37 (>=60); Estimated GFR (Non-African Ame 31 (>=60); Globulin 4.6 g/dL; Glucose 169 mg/dL (74-106); Potassium 4.9 mmol/L (3.5-5.1); Sodium 140 mmol/L (136-145); Total Protein 7.8 g/dL (6.4-8.2)
[2024-03-05 10:09] LABS: PTH, Intact 261 pg/mL (15-65)
== END 2024-03-04 09:00 | disposition home or self-care (01) ==
LOC: LAB 09:01
PROVIDERS: PCP Nurse Practitioner; Visit Provider Nurse Practitioner
DX: N18.30 Chronic kidney disease, stage 3 unspecified (principal); D50.9 Iron deficiency anemia, unspecified; E11.65 Type 2 diabetes mellitus with hyperglycemia; Z79.4 Long term (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; E55.9 Vitamin D deficiency, unspecified
CPT/HCPCS: 36415; 80053; 82306; 82728; 83036; 83540; 83970; 85025

== ENCOUNTER 2024-03-18 14:39 | Outpatient (OUT) | payer MEDICARE, SELFPAY | END 2024-03-18 14:40 | disposition home or self-care (01) | LOC: WC 14:39 | PROVIDERS: PCP Nurse Practitioner; Visit Provider Physician Assistant | DX: E11.621 Type 2 diabetes mellitus with foot ulcer (principal); L97.522 Non-pressure chronic ulcer of other part of left foot with fat layer exposed | CPT/HCPCS: G0463 ==

== ENCOUNTER 2024-04-16 15:13 | Outpatient (OUT) | payer MEDICARE, SELFPAY | END 2024-04-16 15:14 | disposition home or self-care (01) | LOC: WC 15:13 | PROVIDERS: PCP Nurse Practitioner; Visit Provider Physician Assistant | DX: E11.621 Type 2 diabetes mellitus with foot ulcer (principal); L97.522 Non-pressure chronic ulcer of other part of left foot with fat layer exposed | CPT/HCPCS: G0463 ==

== ENCOUNTER 2024-04-17 10:02 | Outpatient (OUT) | payer MEDICARE, SELFPAY ==
--- NOTE | 2024-04-17 10:13 | XR_ITS ---
The [address] [address] Patient Name: AISLINN CARNES MRN: [id number] date: 1960 Sex: F Assigned Patient Location: MAMMO Current Patient Location: Accession/Order Number: [id number] Exam Date: 04/17/2024 10:34 Report Date: 04/18/2024 07:06 At the request of: AGUSTO LÓPEZ Procedure: XR chest 2V PROCEDURE: XR chest 2V DATE: 04/17/2024 9:34 AM CDT COMPARISONS: 01/10/2024 CLINICAL INDICATION: 63 years Female Chronic Cough R05.3 FINDINGS: The cardiomediastinal silhouette and pulmonary vasculature are within normal limits. The lungs are clear. There is no evidence of pleural effusion or pneumothorax. XR/XR chest 2V IMPRESSION: Chest radiograph is within normal limits. Electronically authenticated by: KIT KULKARNI Date: 04/18/2024 07:06
--- NOTE | 2024-04-17 10:15 | MM_ITS ---
Patient Name: AISLINN CARNES MR#: [id number] : 1960 Exam Date: 04/17/2024 Ordering Doctor: KIARA LÓPEZ CNP RADIOLOGY REPORT PROCEDURE: MM TOMOSYNTHESIS SCREENING BI COMPARISON: MG MAMM SCREEN 3D ALINE CAD, 12/28/2022. INDICATIONS: Screening Calculator Name NCI Breast Cancer Risk Assessment Tool 5 Year Breast Cancer Risk 1.30% Lifetime Breast Cancer Risk 5.00% Personal Breast Cancer No Personal Ovarian Cancer No Treatments None Family Cancers Sister with ovarian cancer at age 31; Sister with renal cancer at age 40; Grandmother-maternal with brain cancer at age ~60. LOCATION: The [facility] BREAST COMPOSITION: The breasts are heterogeneously dense,which may obscure small masses. FINDINGS: DIAGNOSTIC CATEGORY 2--BENIGN FINDING. NO CHANGE FROM COMPARISON. Scattered benign-appearing nodules are present. Scattered benign-appearing calcifications are present. Scattered benign-appearing lymph nodes are present. RIGHT BREAST: No significant suspicious finding. LEFT BREAST: No significant suspicious finding. RECOMMENDATIONS: ROUTINE MAMMOGRAM AND CLINICAL EVALUATION IN 12 MONTHS. PLEASE NOTE: A NORMAL MAMMOGRAM DOES NOT EXCLUDE THE POSSIBILITY OF BREAST CANCER. A CLINICALLY SUSPICIOUS PALPABLE LUMP SHOULD BE BIOPSIED. Dictated by: Sarwat Castle MD on 04/17/2024 at 12:38 Approved by: Sarwat Castle MD on 04/17/2024 at 12:39
--- OUTSIDE RECORDS SUMMARY | 2024-04-17 10:26 | XMS_ITS | CCD ---
Author Organization [facility] Care Team Providers Care Supervisor Residential Name Role Phone Pcp, No Primary Care Provider Unavailisidra e AGUSTO OLMSTEAD Primary Care Physician ZaRonan russoyanet Unavailable AICABEL, COLLECTION CARD CLERK AGUSTO Attending Unavailable AICHHOLZ, COLLECTION CARD CLERK AGUSTO Consulting Unavailable AICHHOLZ, COLLECTION CARD CLERK AGUSTO Admitting Unavailable AICHHOLZ, COLLECTION CARD CLERK AGUSTO Primary Care Unavailable RAMON HUNTLEY Attending Unavailable RAMON HUNTLEY Admitting Unavailable REQUEST, DR DANNIE LISTED Primary Care Unavaila georgi DELVALLE, DR THANH García Consulting Unavailable HIGHLANDERRAMON Consulting Unavailable AICHHOLZ, COLLECTION CARD CLERK AGUSTO Primary Care Unavailable RAMON HUNTLEY Admitting Unavailable RAMON HUNTLEY Attending Unavailable AICHHOLZ, COLLECTION CARD CLERK AGUSTO Primary Care Unavailable LUKASWARIN, AMADO H Consulting Unavailable FAWWAD, AMADO H Admitting Unavailable FAWWAD, AMADO H Attending Unavailable AICHHOLZ, COLLECTION CARD CLERK AGUSTO Consulting Unavailable AICHHOLZ, COLLECTION CARD CLERK AGUSTO Admitting Unavailable AICHHOLZ, COLLECTION CARD CLERK AGUSTO Attending Unavailable AICHHOLZ, COLLECTION CARD CLERK AGUSTO Primary Care Unavailable RAMON HUNTLEY Attending Unavailable AICHHOLZ, COLLECTION CARD CLERK AGUSTO Primary Care Unavailable RAMON HUNTLEY Admitting Unavailable BHARAT, DR NUBIA Carlos Consulting Unavailable RAMON HUNTLEY Consulting Unavailable AICHHOLZ, COLLECTION CARD CLERK AGUSTO Primary Care Unavailable BHARAT, DR NUBIA Carlos Consulting Unavailable CAMMIE SEGURA Admitting Unavailable CAMMIE SEGURA Attending Unavailable CAMMIE SEGURA Consulting Unavailable AICHHOLZ, COLLECTION CARD CLERK AGUSTO Primary Care Unavailable AICHHOLZ, COLLECTION CARD CLERK AGUSTO Attending Unavailable AICHHOLZ, COLLECTION CARD CLERK AGUSTO Admitting Unavailable BHARAT, DR NUBIA Carlos Consulting Unavailable AICHHOLZ, COLLECTION CARD CLERK AGUSTO Consulting Unavailable AICHHOLZ, COLLECTION CARD CLERK AGUSTO Primary Care Unavailable COLTON, CAMMIE Admitting Unavailable COLTON, CAMMIE Attending Unavailable COLTON, CAMMIE Consulting Unavailable AICHHOLZ, COLLECTION CARD CLERK AGUSTO Primary Care Unavailable AICHHOLZ, COLLECTION CARD CLERK AGUSTO Attending Unavailable AICHHOLZ, COLLECTION CARD CLERK AGUSTO Consulting Unavailable AICHHOLZ, COLLECTION CARD CLERK AGUSTO Admitting Unavailable AICHHOLZ, COLLECTION CARD CLERK AGUSTO Primary Care Unavailable BHARAT, DR NUBIA Carlos Consulting Unavailable COLTON, CAMMIE Admitting Unavailable COLTON, CAMMIE Attending Unavailable COLTON, CAMMIE Consulting Unavailable AICHHOLZ, COLLECTION CARD CLERK AGUSTO Primary Care Unavailable ZIEBER, DR THANH García Consulting Unavailable HIGHLANDER, PETER D Attending Unavailable HIGHLANDER, PETER D Admitting Unavailable HIGHLANDER, PETER D Consulting Unavailable AICHHOLZ, COLLECTION CARD CLERK AGUSTO Primary Care Unavailable FOSTER ., DR PAGE Admitting Unavailable FOSTER ., DR PAGE Attending Unavailable FOSTER ., DR PAGE Consulting Unavailable ZIEBER, DR THANH García Consulting Unavailable HIGHLANDER, PETER D Admitting Unavailable AICHHOLZ, COLLECTION CARD CLERK AGUSTO Primary Care Unavailable ZIEBER, DR THANH García Consulting Unavailable HIGHLANDER, PETER D Attending Unavailable HIGHLANDER, PETER D Consulting Unavailable AICHHOLZ, COLLECTION CARD CLERK AGUSTO Primary Care Unavailable AICHHOLZ, COLLECTION CARD CLERK AGUSTO Attending Unavailable AICHHOLZ, COLLECTION CARD CLERK AGUSTO Consulting Unavailable AICHHOLZ, COLLECTION CARD CLERK AGUSTO Admitting Unavailable ZIEBER, DR THANH García Consulting Unavailable AICHHOLZ, COLLECTION CARD CLERK AGUSTO Primary Care Unavailable ZIEBER, DR THANH García Consulting Unavailable HIGHLANDER, PETER D Attending Unavailable HIGHLANDER, PETER D Admitting Unavailable HIGHLANDER, PETER D Consulting Unavailable AICHHOLZ, COLLECTION CARD CLERK AGUSTO Primary Care Unavailable ZIEBER, DR THANH García Consulting Unavailable COLTON, CAMMIE Admitting Unavailable COLTON, CAMMIE Attending Unavailable COLTON, CAMMIE Consulting Unavailable RAQUEL DERAS Admitting Unavailable WANDY .RAQUEL Attending Unavailable KASIE CANDELARIO Consulting Unavailable REQUEST, DR PANDEY LISTED Primary Care Unavaila georgi SABA .RAQUEL Consulting Unavailable LYLE MATIAS Consulting Unavailable AICHHOLZ, COLLECTION CARD CLERK AGUSTO Primary Care Unavailable HAY ., DR CARMONA Admitting Unavailable HAY ., DR CARMONA Attending Unavailable HAY ., DR CARMONA Consulting Unavailable TONY LUO Consulting Unavailable NUBIA BATEMAN Consulting Unavailable AICHHOLZ, COLLECTION CARD CLERK AGUSTO Primary Care Unavailable HIGHLANDER, PETER D Admitting Unavailable HIGHLANDER, PETER D Attending Unavailable HIGHLANDER, RAMON Tillman Admitting Unavailable AICHHOLZ, COLLECTION CARD CLERK AGUSTO Primary Care Unavailable HIGHLANDER, RAMON Tillman Attending Unavailable HIGHLANDER, RAMON Tillman Admitting Unavailable AICHHOLZ, COLLECTION CARD CLERK AGUSTO Primary Care Unavailable ZIIMTIAZ, DR THANH García Consulting Unavailable HIGHLANDER, RAMON Tillman Attending Unavailable HIGHLANDER, RAMON Tillman Consulting Unavailable HIGHLANDER, RAMON D Admitting Unavailable AICHHOLZ, COLLECTION CARD CLERK AGUSTO Primary Care Unavailable HIGHLANDER, RAMON Tillman Attending Unavailable HIGHLANDER, RAMON Tillman Attending Unavailable HIGHLANDER, RAMON D Admitting Unavailable REQUEST, NONE LISTED Primary Care Unavaila ble HIGHLANDER, RAMON Tillman Admitting Unavailable AICHHOLZ, COLLECTION CARD CLERK AGUSTO Primary Care Unavailable HIGHLANDER, RAMON Tillman Attending Unavailable HIGHLANDER, RAMON Tillman Admitting Unavailable AICHHOLZ, COLLECTION CARD CLERK AGUSTO Primary Care Unavailable HIGHLANDER, RAMON Tillman Attending Unavailable HIGHLANDER, RAMON Tillman Attending Unavailable HIGHLANDER, RAMON D Admitting Unavailable REQUEST, NONE LISTED Primary Care Unavaila ble LOUIE, DR NELL Salazar Attending Unavailabl e ADELIA, DR THAHN García Consulting Unavailable REQUEST, NONE LISTED Primary Care Unavaila ble LOUIE, DR NELL Salazar Admitting Unavailabl e GRECHNY ., GIANNI PETIT Consulting Unavailabl e VIEIRA ., DR NENO Rodriguez Consulting Unavailable VIEIRA ., DR NENO Rodriguez Admitting Unavailable VIEIRA ., DR NENO Rodriguez Attending Unavailable REQUEST, NONE LISTED Primary Care Unavaila ble GRECHNY ., GIANNI PETIT Consulting Unavailabl e HIGHLANDER, PETER D Procedure Practitioner Unava TONY Cartagen[place] Consulting Unavailable HIGHLANDER, RAMON Tillman Consulting Unavailable BRANDO, KWADWO Consulting Unavailable NUBIA BATEMAN Consulting Unavailable SAMAN, GURU Consulting Unavailable READER, LANDON Consulting Unavailable ROSELIA ., LISA JIMENEZ Consulting Unavailable GEMBUS, CAMDEN Consulting Unavailable SMALLWOOD, REJI FLORES Consulting Unavailable AICHHOLZ, COLLECTION CARD CLERK AGUSTO Primary Care Unavailable [place], DR NUBIA Carlos Consulting Unavailable CAMMIE SEGURA Admitting Unavailable CAMMIE SEGURA Attending Unavailable CAMMIE SEGURA Consulting Unavailable HIGHLANDER, RAMON D Admitting Unavailable AICHHOLZ, COLLECTION CARD CLERK AGUSTO Primary Care Unavailable ADELIA, DR THANH García Consulting Unavailable WILLYANDER, RAMON Tillman Attending Unavailable WILLYANDER, RAMON Tillman Consulting Unavailable Fitt, Brigette Unavailable Map, Tamia Unavailable Lue MD, Lisa M Unavailable Aysha Agusto Primary Care Provider Agusto Lamb Primary Care Provider Lisa Porras MD Unavailable Tor Sumi Primary Care Unavailable Agusto Olmstead Attending Unavailable Agusto Olmstead Admitting Unavailable Lue Lisa MIrina Referring Unavailable Lue, Lisa MIrina Admitting Unavailable Lue, Lisa MIrina Attending Unavailable CATALINAPROMISE CURIEL Attending Unavailab le CATALINA, PROMISE Rodriguez Admitting Unavailab le CATALINA, PROMISE Rodriguez Attending Unavailab le CATALINA, PROMISE HEIDY E Admitting Unavailab le CATALINA, PROMISE Rodriguez Attending Unavailab le CATALINA, PROMISE Rodriguez Admitting Unavailab le CATALINA, PROMISE Rodriguez Attending Unavailab brayden CATALINA, PROMISE Rodriguez Attending Unavailab Lisa Anders Attending Unavailable Lisa Porras Attending Unavailable LuLisa rodriguez Attending Unavailable PROMISE ARNOLD Attending Unavailab le RICHAGUSTO CASILLAS Attending Unavailable PROMISE ARNOLD Attending Unavailab Lisa Anders Referring Unavailable LuLisa rodriguez Attending Unavailable PROMISE ARNOLD Attending Unavailab AGUSTO Limon Attending Unavailable Maria Luisa Olmsteada Primary Care Provider [phone] Aysha Agusto Unavailable AGUSTO OLMSTEAD Attending Unavailable AICHAGUSTO CASILLAS Attending Unavailable AGUSTO OLMSTEAD Attending Unavailable AGUSTO OLMSTEAD Attending Unavailable TAURUS BALLARD Attending Unavailable ABOUASSALY, TAURUS Attending Unavailable ARUNA, TAURUS Attending Unavailable MADINAALYTAURUS Admitting Unavailable SWETA LI Attending Unavailable AGUSTO OLMSTEAD Referring Unavailable AGUSTO OLMSTEAD Primary Care Unavailable SWETA LI Attending Unavailable AGUSTO OLMSTEAD Referring Unavailable AICHHOLZ, AGUSTO J Primary Care Unavailable PEDRO, ZACKERY E Admitting Unavailable PEDRO, ZACKERY E Attending Unavailable AICHHOLZ, AGUSTO J Referring Unavailable AICHHOLZ, AGUSTO J Primary Care Unavailable PEDRO, ZACKERY E Attending Unavailable PEDRO, ZACKERY E Referring Unavailable AICHHOLZ, AGUSTO J Primary Care Unavailable JYOTHI SHELTON Attending Unavailable AICHHOLZ, AGUSTO J Primary Care Unavailable SWETA LI Attending Unavailable AICHHOLZ, AGUSTO J Referring Unavailable AICHHOLZ, AGUSTO J Primary Care Unavailable SWETA LI Referring Unavailable AICHHOLZ, AGUSTO J Primary Care Unavailable PEDRO, ZACKERY E Admitting Unavailable PEDRO, ZACKERY E Attending Unavailable AICHHOLZ, AGUSTO J Referring Unavailable AICHHOLZ, AGUSTO J Primary Care Unavailable PEDRO, ZACKERY E Attending Unavailable PEDRO, ZACKERY E Referring Unavailable AICHHOLZ, AGUSTO J Primary Care Unavailable PEDRO, ZACKERY E Admitting Unavailable PEDRO, ZACKERY E Attending Unavailable PEDRO, ZACKERY E Referring Unavailable AICHHOLZ, AGUSTO J Primary Care Unavailable PEDRO, ZACKERY E Attending Unavailable PEDRO, ZACKERY E Referring Unavailable AICHHOLZ, AGUSTO J Primary Care Unavailable KATEY DIAMOND Attending Unavailable AICHHOLZ, AGUSTO J Primary Care Unavailable Aichholz, Agusto Primary Care Provider Unavailabl e Aichholz, Agusto Unavailable Unavailable ABOUASSALY, TAURUS Referring Unavailable ABOUASSALY, TAURUS Referring Unavailable ABOUASSALY, TAURUS Referring Unavailable SLOPNICK, CARMENZA Attending Unavailable SLOPNICK, CARMENZA Attending Unavailable Allergies Allergy Classification Reported Allergen(s) Allergy Type Date of Onset Reaction(s) Facility Latex (2 sources) Latex Substance Allergy 0 Rash [facility] (20 sources) Latex; Translations: [Latex] Allergy to substance 0 Eruption of skin (disorder), Rash [facility] Medications Current Medications Medication Drug Class(es) Dates Sig (Normalized) Sig (Original) acetaminophen 325 mg oral tablet (2 sources) Start: 06-22-2023 End: 07-22-2023 take 2 tablets by mouth every six hours as needed acetaminophen (TYLENOL) 325 mg tablet Take 2 tablets by mouth every 6 hours as needed for pain. 112 tablet 0 06/22/2023 07/22/2023 Active Comment on above: Take 2 tablets by mo [facility] every 6 hours as needed [...] Start: 10-17-2023 take 1 tablet by rain three times daily as needed for pain HYDROcodone-acetaminophen (NORCO) 7.5-32 5 mg per tablet Indications: Reflex sympathetic dystrophy of right upper extremity Take 1 tablet by mouth 3 (three) times a day as needed for pain. 90 tablet 0 10/17/2023 Active Start: 09-17-2023 take 1 tablet by rain three times daily as needed for pain HYDROcodone-acetaminophen (NORCO) 7.5-32 5 mg per tablet Indications: Reflex sympathetic dystrophy of right upper extremity Take 1 tablet by mouth 3 (three) times a day as needed for pain. 90 tablet 0 09/17/2023 Active Start: 09-17-2023 take 1 tablet by rain three times daily as needed for pain [...] 0 08/11/2023 10/10/2023 Discontinued (Reorder) Start: 09-08-2022 take 1 tablet by rain th once HYDROcodone-Acetaminophen (NORCO) 7.5-32 5 mg per tablet Take 1 tablet by mouth. 09/08/2022 Active Start: 09-08-2022 acetaminophen- hydrocodone 325 mg-7.5 [...] rain th three times daily as needed. [id number] 200 actuat albuterol 0.09 mg/actuat metered dose inhaler (20 sources) beta2-Adrenergic Agonist take 2 puff(s) by inhalation every six hours as needed for wheezing albuterol HFA (PROVENTIL HFA, VENTOLIN HFA) 90 mcg/actuation inhaler Inhale 2 Puffs as instructed every 6 hours as needed for wheezing/shortness of breath. Active take 3 mL by inhalat ion [...] 08/22/2018 Active amLODIPine 5 mg oral tablet (20 sources) Dihydropyridine Calcium Channel Renetta Start: 023 take 1 tablet by mouth once daily amLODIPine (NORVASC) 5 mg tablet Take 5 mg by mouth once daily. 09/08/2022 Active Budesonide / formoterol (4 sources) Corticosteroid, beta2-Adrenergic [...] Comment on above: Take 1 tablet by [facility] once daily for 3 days. 1 ml denosumab 60 mg/ml prefilled syringe (9 sources) RANK Ligand Inhibitor denosumab (PROLIA) 60 mg/mL Inject 60 mg subcutaneously once every 6 months. Active Dexcom G6 Sensor - (6 sources) Start: [...] on above: Take 1 capsule by mo [facility] two times a day. estradiol 0.1 mg/ml vaginal cream (7 sources) Estrogen Start: 05-03-2023 Estrace 0.1 mg /g Cream See Instructions, 42.5 gm, Refill(s) 3, apply pea size amount to urethra/inner vagina 3x/week x 1 month, then 2x/week for maintainence, [id number], 153, cm, 05/03/23 9:52:00 EDT, Height/Length Dosing, 59, kg, 05/03/23 9:52:00 EDT, Weight Dosing Start Date: 05/03/23 Status: Ordered ferrous sulfate 325 mg oral tablet (20 sources) Start: 04-16-2021 take 1 tablet by mouth three times daily at mealtime FEROSUL 325 mg (65 mg iron) tablet Take 1 tablet by mouth three times daily with meals. 04/16/2021 Active Start: 04-16-2021 take 1 tablet by rain th in the morning ferrous sulfate 325 (65 FE) mg tablet Take 1 tablet (325 mg total) by mouth in the morning. 0 04/16/2021 Active Comment on above: Take 1 tablet by rain th three times daily with meals. folic acid 1 mg oral tablet (12 sources) Start: 09-08-2022 folic acid 1 mg Tab Refills(s) 0 Start Date: 09/08/22 Status: Ordered Insulin Aspart FlexPen (11 sources) Start: 09-21-2022 Insulin Aspart FlexPen SubCutaneous, TIDAC, Refills(s) 0 Start Date: 09/21/22 Status: Ordered insulin aspart, human 100 unt/ml injectable solution (20 sources) Insulin Analog Start: 06-08-2017 insulin aspart (NovoLOG) 100 unit/mL injection Please use your sliding scale 1 Box 1 06/08/2017 Active insulin aspart ( NOVOLOG FLEXPEN U-100 INSULIN SUBCUTANEOUS) Inject subcutaneously. Sliding scale Active insulin aspart ( NOVOLOG FLEXPEN U-100 [...] max 30 units/day (stop lantus) Apr, Active insulin glargine 100 unt/ml injectable solution (20 sources) Insulin Analog Start: 021 inject 25 [IU] by subcutaneous injection once daily at bedtime insulin glargine (LANTUS) 100 unit/mL injection Inject 25 Units subcutaneously daily at bedtime. 100 mL 01/21/2021 Active Start: 08-14-2020 insulin glargi ne (LANTUS SOLOSTAR U-100 INSULIN) 100 unit/mL (3 mL) insulin pen Inject 30 Units under the skin 2 (two) times a day. 1 Box 12 08/14/2020 Active Lantus SoloStar 100 UNIT/ML 28 units Subcutaneous qam Active Lantus SoloStar 100 UNIT/ML as directed Subcutaneous 14 UNITS ONCE A DAY Active Comment on above: Inject 25 Units subcutaneously daily at bedtime. 3 ml insulin lispro 100 unt/ml pen injector (19 sources) Insulin Analog Start: 023 inject 1 [IU] by subcutaneous injection three times daily insulin lispro (HUMALOG KWIKPEN) 100 unit/mL INJECT 4-6-8 UNITS SUBCUTANEOUSLY THREE TIMES DAILY plus sliding scale coverage 2 (TWO) (max DAILY dose OF 30 UNITS) 03/18/2023 Active HumaLOG 100 UNIT /ML 4-6-8-10 units ac according to meal size tid. Corrective scale 1:25 ac, hs Subcutaneous As Directed Active iv contrast (will be provided with radiology test) (1 source) Start: 01-12-2024 End: 01-13-2024 iv contrast (will be provided with radiology test) Indications: Other hydronephrosis CT Urogram WO/W Inject, intravenously, once for 1 dose.No IV access, insert saline lock prior to the beginning of sedation, infusion, injection of imaging exam. Discontinue saline lock post exam. If Pt. has a central line or IVAD, may access for administration according to line specific nursing protocol. Once exam is complete flush line and de-access according to line specific nursing protocol in the CT contrast administration guidelines link. 1 Each 0 01/12/2024 01/13/2024 Active lisinopril 10 mg oral tablet (3 [...] meals. 0 Active 24 hr metoprolol succinate 50 mg extended release oral tablet (12 sources) beta-Adrenergic Renetta Start: 11-08-2023 End: 01-20-2024 take 1 tablet by mouth once daily metoprolol succinate ER (TOPROL XL) 50 mg 24 hr tablet Take 50 mg by mouth once daily. 11/08/2023 Active Start: 12-20-2022 take 1 tablet by rain th every twenty-four hours in the morning metoprolol succinate XL (TOPROL XL) 25 mg 24 hr tablet Take 1 tablet (25 mg total) by mouth in the morning. 0 12/20/2022 Active 24 hr mirabegron 50 mg extended release oral tablet (1 source) beta3-Adrenergic Agonist Start: 09-21-2022 End: 04-19-2023 take 1 tablet by mouth once daily Myrbetriq 50 mg oral tablet, extended release 50 mg = 1 tab(s), Oral, Daily, X 30 day(s), # 30 tab(s), Refills(s) 6, Pharmacy: [id number], 153, cm, 09/21/22 8:48:00 EST, Height/Length Dosing, 52.5, kg, 09/21/22 8:48:00 EST, Weight Dosing Start Date: 09/21/22 Stop Date: 04/19/23 Status: Ordered 24 hr oxybutynin chloride 5 mg extended release oral tablet (1 source) Cholinergic Muscarinic Antagonist Start: 09-13-2022 End: 04-11-2023 take 1 tablet by mouth once daily oxybutynin 5 mg ER Tab 5 mg = 1 tab(s), Oral, Daily, X 30 day(s), # 30 tab(s), Refills(s) 6, Pharmacy: [id number], 153, cm, 09/13/22 13:38:00 EST, Height/Length Dosing, 52.5, kg, 09/13/22 13:38:00 EST, Weight Dosing Start Date: 09/13/22 Stop Date: 04/11/23 Status: Ordered potassium chloride 10 meq extended release oral capsule (12 sources) Start: 09-08-2022 potassium chloride 10 mEq Cap-ER Refills(s) 0 Start Date: 09/08/22 Status: Ordered pregabalin 150 mg oral capsule (20 sources) Start: 11-10-2023 pregabalin (LYRICA) 150 mg capsule Indications: Complex regional pain syndrome type 1 of right upper extremity Take 1 capsule (150 mg total) by mouth in the morning and 1 capsule (150 mg total) at noon and 1 capsule (150 mg total) in the evening. 90 capsule 1 11/10/2023 Active Start: 09-08-2022 End: 11-06-2023 take 1 capsule by mouth twice daily pregabalin (LYRICA) 150 mg capsule Take 1 capsule by mouth two times a day for 30 days. 09/04/2023 Active Start: 01-01-2021 pregabalin (LY PRIYANK) 150 [...] three times daily. Take 1 capsule by [facility] two times a day for 30 days. 1000 ml sodium chloride 9 mg/ml injection (1 source) Start: 4 End: 4 0.9 % sodium chloride (NACL 0.9%) infusion Indications: Other hydronephrosis Administer at rate defined per CT contrast administration specifications. To be provided with radiology test. 150 mL 0 01/12/2024 01/12/2024 Active trospium chloride 20 mg oral tablet (4 sources) Cholinergic Muscarinic Antagonist Start: 3 take 1 tablet by mouth once daily trospium 20 mg oral tablet 20 mg = 1 tab(s), Oral, Daily, # 30 tab(s), Refills(s) 11, Pharmacy: [facility] #[id number], 153, cm, 02/22/23 8:55:00 EDT, Height/Length Dosing, 52.5, kg, 02/22/23 8:55:00 EDT, Weight Dosing Start Date: 02/22/23 Status: Ordered vitamin b12 1 mg extended release oral tablet (20 sources) Vitamin B12 Start: take 1 tablet by mouth in the [...] Take 1,000 mcg by mouth once daily. 04/16/2021 Active Comment on above: Take 1,000 mcg by mo uth once daily. Problems Active Problems Problem Classification Problem Date Documented Da te Episodic/Chronic Administrative/social admission (2 sources) Dietary counseling and surveillance Episodic Asthma (18 sources) Unspecified asthma, uncomplicated; Translations: [Mild intermittent [...] Mixed incontinence; Translations: [Incontinence] Onset: 09-13-2022 Chronic Heart valve disorders (19 sources) Rheumatic mitral valve disease, unspecified; Translations: [...] sources) Long-term current use of insulin; Translations: [[facility] (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] Episodic Other aftercare (3 sources) [facility] (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; 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] Onset: 08-09-2022 Episodic Other circulatory disease (1 source) Other disorders of arteries, 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; Translations: [OTH D/O ART ARTRIOL CAP DZ CLSS ELS] Onset: 09-13-2022 Chronic Other connective tissue disease (5 sources) Pain in left foot; Translations: [PAIN IN LEFT FOOT] Onset: 06-15-2022 Episodic Other connective tissue disease (1 source) Pain in upper limb Onset: 01-24-2024 Episodic Other diseases of bladder and urethra (1 source) Neuromuscular dysfunction of bladder, unspecified; Translations: [NEUROMUSCULR DYSFNCTION BLADDER UNS] Onset: 07-25-2022 Chronic Other diseases of bladder and urethra (17 sources) Bladder outlet obstruction; Translations: [Bladder-neck obstruction] Onset: 01-29-2021 01-29-2021 Chronic Other diseases of bladder and urethra (18 sources) Neurogenic bladder; Translations: [Neuromuscular dysfunction of [...] [Cyst of kidney, acquired] 07-05-2023 Episodic Other diseases of kidney and ureters (1 source) Hydronephrosis; Translations: [Other hydronephrosis] 01-12-2024 Episodic Other diseases of kidney and ureters (2 sources) Other hydronephrosis; Translations: [Other hydronephrosis] Onset: 01-12-2024 Episodic Other endocrine disorders (7 sources) Hyperparathyroidism; Translations: [Hyperparathyroidism , unspecified] Chronic Other lower respiratory disease (1 source) Nodule of lung; Translations: [Solitary pulmonary nodule] 03-27-2024 Episodic Other nervous system disorders (17 sources) Chronic pain due to injury; Translations: [...] syndrome i of right upper limb] Onset: 03-15-2024 Chronic Other nutritional; endocrine; and metabolic disorders (1 source) Body mass index (BMI) 25.0-25.9, adult Episodic Other screening for suspected conditions (not mental disorders or infectious disease) (8 sources) Encounter for screening mammogram for malignant [...] 1 of right upper extremity [G90.511] Onset: 03-15-2024 Unclassified (1 source) Extremity Pain Onset: 12-13-2023 Past or Other Problems Problem Classification Problem Date Documented Da te Episodic/Chronic Acute and unspecified renal failure (16 sources) Acute injury of kidney; Translations: [Acute kidney failure, unspecified] Onset: 01-17-2021 Resolved: 09-04-2023 01-21-2021 Episodic Calculus of urinary tract (20 [...] OTHER SPEC FACTORS INITIAL] Onset: 06-15-2022 Episodic Fever of unknown origin (9 sources) Fever; Translations: [Fever, unspecified] Onset: 08-31-2023 Resolved: 09-04-2023 09-04-2023 Episodic Fluid and electrolyte disorders (20 sources) Hyperkalemia; Translations: [Hyperkalemia] Onset: 01-17-2021 Resolved: 09-04-2023 09-08-2022 Episodic Fracture of upper limb (2 sources) Fracture of unspecified phalanx of right little finger, subsequent encounter for fracture with routine healing; Translations: [Displaced fracture of proximal phalanx of right little finger, initial encounter for closed fracture] Onset: 06-15-2022 Episodic Genitourinary symptoms and ill-defined conditions (20 sources) Urinary tract obstruction; Translations: [Obstructive and reflux uropathy, unspecified] Onset: 01-17-2021 01-21-2021 Episodic Malaise and fatigue (18 sources) Asthenia; Translations: [Weakness] Onset: 01-17-2021 01-18-2021 Episodic Neoplasms of unspecified nature or uncertain behavior (16 sources) Neoplasm of kidney; 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] Onset: 06-06-2023 06-22-2023 Episodic Open wounds of extremities (1 source) Unspecified open wound of right great toe without damage to nail, initial encounter; Translations: [UNS OP WND RT GRT TOE NO DMG NL INT] Onset: 05-16-2022 Episodic Other aftercare (1 source) 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; Translations: [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] Onset: 08-09-2022 Episodic Other aftercare (3 sources) Admission statuses; Translations: [keno terminal operator (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 of opiate analgesic] Onset: 03-15-2022 03-15-2022 Episodic Other aftercare (1 source) [facility] (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 of opiate analgesic; Translations: [[facility] (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 of opiate analgesic] Onset: 03-15-2022 [...] Onset: 07-25-2022 Episodic Other connective tissue disease (18 sources) Recurrent falls ; Translations: [Repeated falls] [...] Episodic Other diseases of kidney and ureters (9 sources) Hydronephrosis with ureteral stricture, not elsewhere classified; Translations: [Hydronephrosis] Onset: 01-17-2021 Resolved: 01-21-2021 01-21-2021 Episodic Other gastrointestinal disorders (1 source) Diarrhea, unspecified; Translations: [DIARRHEA UNSPECIFIED] Onset: 07-25-2022 Episodic Other lower respiratory disease (1 source) Hypoxemia; Translations: [HYPOXEMIA] Onset: 07-25-2022 Episodic Other nervous system disorders (13 sources) Postoperative pain ; Translations: [Other acute [...] Onset: 07-25-2022 Episodic Septicemia (except in labor) (13 sources) Sepsis, unspecified organism; Translations: [Sepsis due to Methicillin resistant Staphylococcus aureus] Onset: 01-17-2021 Resolved: 01-21-2021 Episodic Skin and subcutaneous tissue infections (3 sources) Cellulitis of left lower limb; Translations: [Cellulitis of left toe] Onset: 07-25-2022 Episodic Urinary tract infections (20 sources) Urinary tract infectious disease; Translations: [Urinary tract infection, site not specified] Onset: 01-17-2021 Resolved: 09-04-2023 09-08-2022 Episodic Results Test Name Value Interpretation Reference Range Facility [facility] 03-29-2024 [facility] Nurse Visit (UROSMN) LIAMAISLINN ([id number]) 1960 F Date Time Provider Department 03/29/24 3:00 PM [facility] UROSMN During your visit today, we recorded the following information about you: Lorie Burrows RN 03/29/2024 2:18 PM Addendum [facility] URODYNAMICS LAB URODYNAMIC PROCEDURE NOTE ID Verified by: Lorie Burrows RN with name and birthdate. Procedure instructions reviewed with patient prior to procedure: Yes Currently experiencing pain: No 0 on a scale of 0 to 10 on a scale of 0-10. Does the patient have any concerns about safety in the home/falls?: Not at risk for falls Has the patient had 2 falls in the last year or 1 fall with injury or currently using assistive device (walker, cane, wheelchair, crutches): No What interventions were put in place to prevent falls during this visit: Increased observations by caregivers Has patient had any history of Mitral Valve prolapse: No MEDS:NONE Has patient had any history of prosthetics: No MEDS: NONE Latex allergy: Yes Iodine allergy: No Females- Is patient : No Subcontract Administrator offered:Patient declines B/O UA: Yes, Negative for leukocytes and negative for nitrates. UROFLOWMETRY Voided vol: 17 ml. Flow time: 8 sec. Q max: 5 ml/sec. Q av ml/sec. PVR: 200 ml. CYSTOMETROGRAM Subtracted:Yes Video: Yes EMG: Yes First Sensation: 103 ml Strong desire: 164 ml Max. capacity: 170 ml Maximum filling detrusor pressure 33 cm of water Detrusor overactivity associated with urge: No Detrusor overactivity associated with leakage: No Was patient assessed for VLPP / UPP Yes Leaks urine with valsalva /coughs: Yes Lowest Leak point pressure: 129 cm of water at 103 ml PRESSURE-FLOW VOIDING STUDY Did patient void with catheters in place No Voided: 146 ml voluntary with pves removed Max Voiding Detrusor Pressure n/acm H2O P det @ Q max (Max Flow): n/a cm H2O Maximum Flow Rate: n/a ml/sec Average Flow Rate: n/a ml/sec Fluro time: see xray note Vaginal Packing for prolapse support: No Comments: Patient completed pretest uroflow with a void of 17ml and a PVR of 200ml. Patient filled to capacity. Steady rise in pdet with filling. Stressed patient sitting and had leak with cough x2 and vasalva x2. Permission to void given with strong desire and patient was unable to void. Pves removed and patient had voluntary void of 146ml. Patient pushing to void and states she can only void when she adjusts on the toilet and pushes. STUDY DETAILS: Was a uroflow done at some point during the study: Yes Was a cystometrogram performed: Yes Was a UPP/VLPP done: Yes Was an EMG done: Yes Was an intraabdominal pressure recorded with urethral catheter in: No Where were pressure catheters placed: Bladder and Rectum Was contrast instilled for radiologic evaluation: yes, 250 ml of conray contrast Please use Urodynamic Graph. Pt given verbal home going instructions. Pt states an understanding of instructions given. Carmenza Nolen MD 04/02/2024 11:52 AM Addendum [facility] FEMALE PELVIC MEDICINE AND RECONSTRUCTIVE SURGERY PHYSICIAN INTERPRETATION: Urodynamics Interpretation: A 7 Fr catheter was placed in a sterile fashion and a separate rectal catheter was placed for intra-abdominal pressure measurements. The study was then run to yield results as follows: Uroflow: Voided volume 16 cml with Continuous pattern PVR: High 200 ml. CMG: The FS 103 ml and FD 132 ml: normal range Bladder compliance: abnormal - consistent rise in pDet until leak at ~100ml Detrusor overactivity: No Stress incontinence: Yes, 150 cm of H20 at 100 ml Total tolerated volume was 100ml Pressure Flow phase: Unable to void with catheters in place. Attempted valsalva void with no rise in pDet Catheters removed and Qmax 11 and pt was able to empty Abdominal strain:Yes EMG: DESD or abnormal patterns noted: No Video: Bladder remodeling, no VUR. No bladder neck opening appreciated. Impression: Small capacity bladder with poor compliance and BURKE at LONG TERM of 100ml. Bladder remodeling without VUR. Valsalva voiding with atonic detrusor. Will refer to consider bladder augmentation. Carmenza Nolen MD Voiding cystourethrogram- Voiding Cystourethrogram Patient Name - Aislinn Wheeler Date - April 02, 2024 Imaging exam - VCUG Number of images saved - 11 Patient position - Sitting Radiologic Findings: A sales and marketing executive radiograph was obtained. The bony and soft tissue structures are within normal. 147 ccs contrast were used to fill the bladder. The bladder outline is irregular/trabeculated and abnormal shaped appearing. There is no ureteral reflux. During the voiding phase there is abnormal bladder neck opening and urethra is not visualized. Bladder emptying is not visualized Read (more content not included)... Normal [facility] CNOVon 03-26-2024 CNOV Office Visit (UROLAV ) AISLINN WHEELER ([id number]) 1960 F Date Time Provider Department 03/26/24 11:00 AM CARMENZA NOLEN UROLAV During your visit today, we recorded the following information about you: Weight 56.7 kg Maria Teresa Johnson MA 03/26/2024 11:54 AM Signed Pt voided upon arrival. PVR = 205 ml Via bladder scan. Pt was doing ISC, but was told she could stop. ======== Pt instructed to give a urine specimen. 2ND Repeat PVR PVR = 135 ml Via bladder scan. Carmenza Nolen MD 03/26/2024 11:54 AM Signed [facility] FEMALE PELVIC MEDICINE AND RECONSTRUCTIVE SURGERY HISTORY OF PRESENT ILLNESS: Aislinn Wheeler is a 63 year old F female here today for a follow up regarding voiding dysfunction. I saw her 2020 for retention with bilateral hydro associated with A1c 16.5. ISC rec at that time. Pt subsequently underwent robotic partial nephrectomy - path benign. UDS: No detrusor function on voiding- all valsalva voiding. No DO or BURKE. Able to void 89cc and instilled 318cc. Recently admitted with retention and bilateral hydro again and she was instructed to restart self cath. PVR 211ml last visit with Dr. Ballard 01/12/24. Most recent A1c 13.3 06/06/23. Reports more recently it was 7. Blood sugars consistently 100s Today, she reports severe UI. Fills a pad every hour. Has to wear depends and sometimes overflows. +enuresis. Was told to stop cathing, because she was mostly emptying her bladder. Had bladder botox injections at [facility] about 3 mo ago with no improvement. Tries ISC but continues to leak with an empty bladder. HISTORIES: PAST MEDICAL HISTORY PAST MEDICAL HISTORY No date: Anemia No date: Asthma No date: CKD (chronic kidney disease) No date: Diabetes (HCC) PAST SURGICAL HISTORY PAST SURGICAL HISTORY No date: ANKLE SURGERY HX; Left No date: HYSTERECTOMY HX No date: NECK SURGERY HX Comment: x2-- cervical disc No date: PAST SURGICAL HISTORY OF Comment: left large toe amputation No date: PAST SURGICAL HISTORY OF; Right Comment: right arm surgery No date: REMOVAL GALLBLADDER No date: SHOULDER SURGERY HX; Left FAMILY HISTORY FAMILY HISTORY Problem Relation Age of Onset Difficulty with anesthesia No Family History SOCIAL HISTORY Social History Tobacco Use Smoking status: Never Smokeless tobacco: Never Vaping Use Vaping Use: Never used Substance Use Topics Alcohol use: Yes Comment: rarely--holiday or special occ Drug use: Never MEDICATIONS: Current Outpatient Medications Medication Sig insulin lispro (HUMALOG KWIKPEN) 100 unit/mL INJECT 4-6-8 UNITS SUBCUTANEOUSLY THREE TIMES DAILY plus sliding scale coverage 2 (TWO) (max DAILY dose OF 30 UNITS) HYDROcodone-Acetaminoph en (NORCO) 7.5-325 mg per tablet Take 1 tablet by mouth. denosumab (PROLIA) 60 mg/mL Inject 60 mg subcutaneously once every 6 months. amLODIPine (NORVASC) 5 mg tablet Take 5 mg by mouth once daily. FEROSUL 325 mg (65 mg iron) tablet Take 1 tablet by mouth three times daily with meals. VITAMIN B-12 1,000 mcg tab Take 1,000 mcg by mouth once daily. insulin aspart (NOVOLOG FLEXPEN U-100 INSULIN SUBCUTANEOUS) Inject subcutaneously. Sliding scale insulin glargine (LANTUS) 100 unit/mL injection Inject 25 Units subcutaneously daily at bedtime. albuterol HFA (PROVENTIL HFA, VENTOLIN HFA) 90 mcg/actuation inhaler Inhale 2 Puffs as instructed every 6 hours as needed for wheezing/shortness of breath. metoprolol succinate ER (TOPROL XL) 50 mg 24 hr tablet Take 50 mg by mouth once daily. pregabalin (LYRICA) 150 mg capsule Take 1 capsule by mouth two times a day for 30 days. No current facility-administered medications for this visit. 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 Normal urethra. No masses or tenderness. Minimal hypermobility but +SCT Normal vagina. 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 MD Tamanna Rogers Emily, MD 03/26/2024 11:31 AM Signed INFOR (more content not included)... Normal [facility] UA DIP, URINE (POC)on 2023 BILIRUBIN UA (POCT) Negative Negative [facility] CLARITY UA (POCT) Cloudy [facility] COLOR UA (POCT) Light yellow [facility] GLUCOSE UA (POCT) Negative Negative mg/dL [facility] Hemoglobin Ql (U) Trace-intact Abnormal Negative [facility] Interpretation and review of laboratory results Abnormal [facility] KETONE UA (POCT) Negative Negative mg/dL [facility] LEUKOCYTES UA (POCT) Moderate Abnormal [facility] NITR[facility] (PO[facility]) Negative Negative [facility] PH UA (POCT) 6.0 4.5 - 8.0 [facility] Protein Ql (U) 100 mg/dL Abnormal Negative [facility] SPECIFIC GRAVITY UA (POCT) 1.020 1.005 - 1.030 [facility] UROBILINOGEN UA (POCT) 0.2 Normal E.U./dL [facility] Location:[facility], [address] [address], [place], [place], [address] [facility] POINT OF CARE [facility] Glucose Glucometer (BldC) [M ass/Vol]on 03-15-2024 Glucose [Mass/Vol] 164 mg/dL High 65-99 [facility] CNPNon 02-26-2024 CNPN Telephone (URFHR) AISLINN WHEELER ([id number]) 1960 F Date Time Provider Department 02/26/24 FLAVIO COON URR During your visit today, we recorded the following information about you: Flavio Coon, RN 02/26/2024 2:46 PM Signed Pt LVM asking for her CT scan results. Noted in pt chart was an unread message from regarding the most recent CT scan. LVM for pt and let her know about MyChart message and provided number if pt has any further questions. Allergies As of Date: 02/26/2024 Noted Allergy Reaction LATEX 02/05/2020 2 - Rash Comments: Added based on information entered during case entry, please review and add reactions, type, and severity as needed Date Reviewed: 01/12/2024 Reviewed by: Sanjana Callaway MA - Fully Assessed Prescriptions as of 02/26/2024 - metoprolol succinate ER (TOPROL XL) 50 mg 24 hr tablet Take 50 mg by mouth once daily. - insulin lispro (HUMALOG KWIKPEN) 100 unit/mL INJECT 4-6-8 UNITS SUBCUTANEOUSLY THREE TIMES DAILY plus sliding scale coverage 2 (TWO) (max DAILY dose OF 30 UNITS) - HYDROcodone-Acetaminoph en (NORCO) 7.5-325 mg per tablet Take 1 tablet by mouth. - denosumab (PROLIA) 60 mg/mL Inject 60 mg subcutaneously once every 6 months. - amLODIPine (NORVASC) 5 mg tablet Take 5 mg by mouth once daily. - pregabalin (LYRICA) 150 mg capsule Take [...] of breath. Problem List As Of Date 02/26/2024 Noted Resolved Ureterolithiasis [N20.1] 01/17/2021 Acute bilateral [...] without hematuria [N39.*08/31/2023 09/04/2023 Encounter Status:Closed by FLAVIO COON on 02/26/24 [facility] 02-12-2024 [facility] AISLINN WHEELER ([id number]) 1960 F Date Time Provider Department 02/12/24 VONNIE WILDERRaquel During your visit today, we recorded the following information about you: Vonnie Wilder RN 02/12/2024 4:22 PM Signed Patient LVM requesting results from 02/01/24 CT Urogram. Will update medical team Allergies As of Date: 02/12/2024 Noted Allergy Reaction LATEX 02/05/2020 2 - Rash Comments: Added based on information entered during case entry, please review and add reactions, type, and severity as needed Date Reviewed: 01/12/2024 Reviewed by: Sanjana Callaway MA - Fully Assessed Reason for Visit: Results - Ct [3560] Prescriptions as of 02/12/2024 - metoprolol succinate ER (TOPROL XL) 50 mg 24 hr tablet Take 50 mg by mouth once daily. - insulin lispro (HUMALOG KWIKPEN) 100 unit/mL INJECT 4-6-8 UNITS SUBCUTANEOUSLY THREE TIMES DAILY plus sliding scale coverage 2 (TWO) (max DAILY dose OF 30 UNITS) - HYDROcodone-Acetaminoph en (NORCO) 7.5-325 mg per tablet Take 1 tablet by mouth. - denosumab (PROLIA) 60 mg/mL Inject 60 mg subcutaneously once every 6 months. - amLODIPine (NORVASC) 5 mg tablet Take 5 mg by mouth once daily. - pregabalin (LYRICA) 150 mg capsule Take [...] of breath. Problem List As Of Date 02/12/2024 Noted Resolved Ureterolithiasis [N20.1] 01/17/2021 Acute bilateral [...] without hematuria [N39.*08/31/2023 09/04/2023 Encounter Status:Closed by VONNIE WILDER on 02/12/24 Normal [facility] CREATININE Don 02-01-2024 Creatinine [Mass/Vol] 1.78 mg/dL High 0.58-0.96 [facility] Comment on above: Order Comment: Speci men Type: BLOOD SPECIMENOrdering Facility: [facility] Address: [address] [place], [place] [address] [id number] Performed By: #### C RET1 ####[facility] LABCLIA [id number] [place] [address] Creatinine and Glomerular filtration rate.predicted panel (S/P/Bld) 31 mL/min/1.73m??? Low >=60 [facility] Comment on above: Order Comment: Speci men Type: BLOOD SPECIMENOrdering Facility: [facility] Address: [facility] [place] [id number] Result Comment: Donna mated Glomerular Filtration Rate [...] accurately reflect actual GFR. Performed By: #### C RET1 ####[facility] LABCLIA [id number] [place] [address] CT UROGRAM WO/W IVCONon 06- CT UROGRAM WO/W IVCON * * *Final Report* * * DATE OF EXAM: Feb 01 2024 3:26PM [facility] 0560 - CT UROGRAM WO/W IVCON / PROCEDURE REASON: Other hydronephrosis * * * * Physician Interpretation * * * * RESULT: EXAMINATION: CT ABDOMEN AND PELVIS WITHOUT AND WITH IV CONTRAST, INCLUDING EXCRETORY PHASE IMAGING (CT UROGRAM) 3D RECONSTRUCTIONS CLINICAL HISTORY: Hydronephrosis. TECHNIQUE: CT urogram protocol including unenhanced, renal parenchymal phase and excretory phase renal imaging was obtained following IV contrast. Normal saline was also administered IV. No oral contrast was given. 3D image post-processing was performed and archived at the request of the referring physician, on the CT scanner workstation without concurrent physician supervision. MQ: [id number]_2 Contrast: IV: 110 ml of Omnipaque 300 IV Saline: 110 ml of 0.9% NACL Solution Oral Contrast: None CT Radiation dose: Integrated dose-length product (DLP) for this visit = 1759 mGy*cm. CT Dose Reduction Employed: Automated exposure control (AEC) COMPARISON: CT abdomen/pelvis dated 02/13/23 from an outside institution, MRI kidney dated 01/20/[address] scan dated 01/17/21 improvement clinic RESULT: Kidneys and urinary tract: Right: There are no renal calculi or masses. The opacified calices, renal pelvis and ureter are normal without dilation, filling defect, or stricture. Left: Interval resection of the previously noted cystic mass. New borderline/mild left hydronephrosis. Mild enhancement of the left ureteral wall concerning for a ureteritis. Bladder: Diffuse thickening of the urinary bladder wall. Abdomen and Pelvis: Liver: No mass. Biliary: Mild intrahepatic biliary ductal prominence, stable. Gallbladder is absent. Spleen: No mass. No splenomegaly. Pancreas: No mass or duct dilation. Adrenals: No mass. GI tract: No dilation or wall thickening. Lymph nodes: No abdominal or pelvic lymphadenopathy. Mesentery/Peritoneum: No ascites or mass. Retroperitoneum: No mass. Vasculature: - Abdominal aorta and iliac arteries: Atherosclerotic calcifications without aneurysm. - Celiac and SMA: Patent without stenosis. - Portal venous system (SMV, splenic vein, portal vein and branches): Patent. - Hepatic veins: Patent. Pelvis: No mass, ascites or fluid collection. Small fat-containing umbilical hernia. Bones and Soft Tissues: No suspicious lytic or blastic osseous lesions. Lower thorax: 1.1 cm nodular opacity in the lingula (2:6), stable since 02/13/23 but enlarged since 01/17/21. Previous measurements: 5 mm on 01/17/21 1.0 cm on 02/13/23. Localizer images: No additional findings. IMPRESSION: 1. Interval resection of previously noted cystic left renal mass. 2. New borderline/mild left hydronephrosis. 3. Mild wall enhancement of the left ureter concerning for a ureteritis. 4. Diffuse urinary bladder wall thickening. 5. Indeterminate 1.1 cm nodular opacity in the lingula, stable since 02/13/23 but enlarged since 01/17/21. Consider further evaluation via PET/CT scan and/or other workup. ACTIONABLE RESULT: FOLLOW-UP Acuity: Actionable Findings: Thoracic-Lung nodules Routing code: RI_[id number] Recommendation: PET/CT Time Frame: At the discretion of the clinical team. COMMUNICATION: Results will be communicated with the ordering provider via [employer] staff message or phone message by [facility] Support Services within 2 business days of report finalization. --END OF FINDING-- Transcribe Date/Time: Feb 02 2024 9:09A Dictated by: AYAZ ADAMS MD This examination was interpreted and the report reviewed and electronically signed by: AYAZ ADAMS MD on Feb 02 2024 9:42AM EST Thank you for allowing us to participate in the care of your patient. Should there be any questions regarding this interpretation, please call [phone]. If you are unable to reach us at the number above, please feel free to contact [facility] eRadiology at [phone]. [id number] ACTIONABLE Invalid Interpretation Code [facility] CNOVon 01-12-2024 CNOV Office Visit (URFMOB ) AISLINN WHEELER ([id number]) 1960 F Date Time Provider Department 01/12/24 1:50 PM TAURUS BALLARD During your visit today, we recorded the following information about you: Pulse Blood pressure 75/minute 142/69 Taurus Ballard MD 01/12/2024 2:43 PM Signed [facility] FOLLOW-UP PATIENT HISTORY AND PHYSICAL EXAM PATIENT INFO: Aislinn Wheeler 63 year old REFERRING M.D.: No referring provider defined for this encounter. 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 Cr was 2.08 on 01/10/2024 and 1.97 on 01/11/2024. Pt presents with hydro and retention Patient reports feeling okay today. She is recovering from her recent hospitalization. She has a history of urinary retention requiring CIC. RBUS 01/10/2024: mildly increased renal cortical echo texture, consider medical renal disease Moderate to severe right and moderate left hydronephrosis of unknown etiology Elevated flow velocity left mid renal artery, which could result in renovascular hypertension Surgical Pathology: 06/22/2023 FINAL DIAGNOSIS A. 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 - 7.2 cm gross greatest dimension of tissue specimen (defer to clinical/imaging for overall lesion size). LABS Creatinine (mg/dL) Date Value 09/03/2023 1.29 09/02/2023 1.30 09/01/2023 1.39 08/31/2023 2.15 06/23/2023 1.39 01/29/2021 1.35 01/21/2021 1.51 01/20/2021 1.46 01/19/2021 1.92 01/19/2021 1.93 PAST MEDICAL HISTORY Diagnosis Date Anemia Asthma CKD (chronic kidney disease) Diabetes (HCC) PAST SURGICAL HISTORY Procedure Laterality Date ANKLE SURGERY HX Left HYSTERECTOMY HX NECK SURGERY HX x2-- cervical disc PAST SURGICAL HISTORY OF left large toe amputation PAST SURGICAL HISTORY OF Right right arm surgery REMOVAL GALLBLADDER SHOULDER SURGERY HX Left Social History Tobacco Use Smoking status: Never Smokeless tobacco: Never Vaping Use Vaping Use: Never used Substance Use Topics Alcohol use: Yes Comment: rarely--holiday or special occ Drug use: Never REVIEW OF SYSTEMS: CONSTITUTIONAL: [...] yr old female with a 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 Patient was lost to follow up. She was recently hospitalized Cr was 2.08 on 01/10/2024 and 1.97 on 01/11/2024. Pt presents with hydro and retention. Patient has a history of retention requiring CIC. Discussed restarting CIC 1 time per day and monitoring output. Her PVR was elevated at 211 cc today. Discussed proceeding with a CT urogram to further assess the cause of her b/l hydronephrosis. Pt has stress urinary incontinence. Will refer to Dr. Nolen PLAN: CIC 1 time per day with 12f catheter for urinary retention CT urogram Will refer to Dr. Tamanna Ruiz APRN.COLLECTION CARD CLERK Attending Note I have personally performed a face to face assessment of the patient and have reviewed the ELIF note. I performed a substantive portion of the visit including all aspects of the following. My miller findings include: Medical Decision Making 63-year-old female with a history of urinary retention and left robotic partial nephrectomy for benign tumor. Recently seen on outside hospital and found to have hydronephrosis bilaterally. We reinforced the importance of doing CIC once or twice a day. She does also describe stress urinary incontinence and I recommended follow-up with my partners to discuss options for her stress incontinence. With respect to follow-up of her ki (more content not included)... Normal [facility] UA DIP, URINE (POC)on 2023 BILIRUBIN UA (POCT) Negative Negative [facility] CLARITY UA (POCT) Clear [facility] COLOR UA (POCT) Yellow [facility] GLUCOSE UA (POCT) 100 mg/dL Abnormal Negative [facility] Hemoglobin Ql (U) Trace-intact Abnormal Negative [facility] Interpretation and review of laboratory results Abnormal [facility] KETONE UA (POCT) Negative Negative mg/dL [facility] LEUK[facility] U[facility] (POCT) Small [facility]normal [facility] NITRITE UA (POCT) Negative Negative [facility] PH UA (POCT) 5.5 4.5 - 8.0 [facility] Protein Ql (U) 100 mg/dL Abnormal Negative [facility] SPECIFIC GRAVITY UA (POCT) 1.015 1.005 - 1.030 [facility] UROBILINOGEN UA (POCT) 0.2 Normal E.U./dL [facility] Location:[facility], [address] [address], [place], [place], [address] [place] [address] POINT OF CARE [facility] ED Note-Physicianon 10-30-19 ED Note-Physician [id number]#1.00 TIFF Normal [facility] Lab Reportson 10-30-2023 Lab Reports [id number]#1.00T IFF Normal [facility] Lab Reports [id number]#1.00T IFF Normal [facility] Urology Office/Clinic Noteon 10-26-2023 Urology Office/Clinic Note Chief Complaint S/P to Cysto with Botox HPI Staff KML pt. Here for f/u to Botox 100u done 05/22/23. R/s'd appt from 06/28/23. Previous dx: renal cyst, mixed incontinence, feeling of incomplete bladder emptying, glucosuria. Pt was referred to Dr. Ballard at [facility] for evaluation of robotic left cyst [...] Assessment/Plan 1. 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 BURKE [...] procedure. This is confusing bc review of [facility]'s op report shows completely normal events (lidocaine instilled normally, 10 injections of 2ml each) so it's unclear if pt received full 100units or not. Pt called 06/08/23 c/o worsening leakage after Botox. PVR was 174 cc (compared to 142cc prior to botox). KML recommended to start CIC 3x/day for residual, timed voids q2hr, and tight DM control. Pt was in [facility] ER 06/19 and treated for E [...] kidney measuri (more content not included)... Normal [facility] Comment on above: Result Comment: Elec tronically Signed By: CATALINA VIRGEN, HEIDY Rodriguez\.br\Date and Time Signed: 10/26/23 11:50 EST\.br\Electronically Co-Signed By: Dina Jolly\.br\Date and Time Co-Signed: 10/25/23 16:39 EST Ambulatory Visit Summaryon 0 10-25-2023 Ambulatory Visit Summary AISLINN WHEELER :1960 Visit Date:10/25/2023 Ambulatory Visit Instructions Your Diagnosis Mixed incontinence Your Care Team Attending Physician - HEIDY ARNOLD PA-C Primary Care Physician - AGUSTO OLMSTEAD CNP This Is Your Medications List [...] Schedule the Following Appointments Follow Up with HEIDY ARNOLD PA-C, EMELINA When: Where: [address] [place] [address] Medications What How Much When Instructions Unchanged [...] including vitamins, herbs, eye drops, creams, and uiqc-mzk-rrmjyrc medicines. ? Any problems you or family [...] Do no (more content not included)... Normal [facility] Patient Educationon 10-25-19 24 Patient Education Urology Botulinum Toxin Bladder Injection [...] including vitamins, herbs, eye drops, creams, and heiq-evm-wiavegq medicines. ? Any problems you or family [...] tells you to take them. ? Taking crck-wzk-anupais medicines, vitamins, herbs, and supplements. General instructions [...] these instructions at home: Medicines ? Take yvrx-dkg-zzoxffi and prescription medicines only as told by [...] health ca (more content not included)... Normal [facility] Glucose Glucometer (BldC) [M ass/Vol]on 10-13-2023 Glucose [Mass/Vol] 276 mg/dL High 65-99 [facility] [place] Glucose Glucometer (BldC) [M ass/Vol]on 09-29-2023 Glucose [Mass/Vol] 356 mg/dL High 65-99 [facility] [place] CNPNon 09-27-2023 CNPN Telephone (FVPRAD) AISLINN WHEELER ([id number]) 1960 F Date Time Provider Department 09/27/23 DREW BUCKNER FVBG During your visit today, we recorded the following information about you: Drew Buckner, Research Coordinator 09/27/2023 2:33 PM Signed IRB# [id number]: Vascular events in patients undergoing same-day nonCardiac surgery - [place] PI: Mary Rojas MD, LETY, FASA. Outcomes Research Department. Anesthesia [place]. [facility]. Aislinn Wheeler was unavailable at the listed phone number. We will attempt to contact the patient through HeTexted message. Drew Esqueda Research Coordinator Research Coordinator Allergies As of Date: 09/27/2023 Noted Allergy Reaction LATEX 02/05/2020 2 - Rash Comments: Added based on information entered during case entry, please review and add reactions, type, and severity as needed Date Reviewed: 09/03/2023 Reviewed by: Chuck Kirk RN - Fully Assessed Reason for Visit: Research F/U [598] Prescriptions as of 09/27/2023 - pregabalin (LYRICA) [...] without hematuria [N39.*08/31/2023 09/04/2023 Encounter Status:Closed by DREW BUCKNER on 09/27/23 [facility] 09-26-2023 CNPN Telephone (FVPRAD) AISLINN WHEELER ([id number]) 1960 F Date Time Provider Department 09/26/23 DREW BUCKNER FVPRAD During your visit today, we recorded the following information about you: Drew Buckner, Research Coordinator 09/26/2023 3:32 PM Signed IRB# [id number]: Vascular events in patients undergoing same-day nonCardiac surgery - [place] PI: Mary Rojas MD, LETY, FASA. Outcomes Research Department. Anesthesia [place]. [facility]. Aislinn Wheeler was unavailable at the listed phone number. We will attempt to contact the patient again at a later date. Drew Esqueda Research Coordinator Research Coordinator Allergies As of Date: 09/26/2023 Noted Allergy Reaction LATEX 02/05/2020 2 - Rash Comments: Added based on information entered during case entry, please review and add reactions, type, and severity as needed Date Reviewed: 09/03/2023 Reviewed by: Chuck Kirk RN - Fully Assessed Reason for Visit: Research F/U [778] Prescriptions as of 09/26/2023 - pregabalin (LYRICA) [...] without hematuria [N39.*08/31/2023 09/04/2023 Encounter Status:Closed by [facility] HNO ID: [id number] Author: ANTHONY BARROW MD Service: Hospital Medicine Author Type: Physician Type: Discharge Summary Filed: 09/04/2023 10:32 Note Text: DISCHARGE SUMMARY PATIENT NAME: Aislinn Wheeler ADMISSION DATE: 08/31/2023 DISCHARGE DATE: 09/04/2023 ATTENDING PHYSICIAN: Anthony Barrow MD Code Status: Not on file PCP: Agusto Olmstead Highest Readmission Risk Score: 21 The [...] Provider Department Center 10/06/2023 1:00 PM US [facility] BRITTANIE [place] [facility] Brittanie 10/06/2023 2:00 PM LAB [facility] [place] [facility] Brittanie 10/11/2023 1:50 PM Taurus Ballard MD [facility] ALLERGIES Allergen Reactions Latex Rash Added [...] U-100 INSULIN SUBCUTANEO (more content not included)... [facility] ALLIED HEALTHon 09-03-2023 [facility] HNO ID: [id number] Author: NICOL MILLIGAN RT(R) Service: Radiology Author [...] RT Michael(R) September 03, 2023 2:57 PM [facility] Basic metabolic 2000 panelon 09-03-2023 Anion gap [Moles/Vol] 10 mmol/L Normal 9-18 [facility] Comment on above: Order Comment: Speci men Type: BLOOD SPECIMEN Ordering Facility: [facility] Address: [address] [place] [address] Performed By: #### 2 4321-2 #### [facility] CLIA [id number] [address] [place] [address] [place] Calcium [Mass/Vol] 8.8 mg/dL Normal 8.5-10.2 [facility] Comment on above: Order Comment: Speci men Type: BLOOD SPECIMEN Ordering Facility: [facility] Address: [address] [place] [address] Performed By: #### 2 4321-2 #### [facility] CLIA [id number] [address] [place] [address] [place] Chloride [Moles/Vol] 103 mmol/L Normal 97-105 [facility] Comment on above: Order Comment: Speci men Type: BLOOD SPECIMEN Ordering Facility: [facility] Address: [address] [place] [address] Performed By: #### 2 4321-2 #### [facility] CLIA [id number] [address] [place] [address] [place] CO2 [Moles/Vol] 23 mmol/L Normal 22-30 [facility] Comment on above: Order Comment: Speci men Type: BLOOD SPECIMEN Ordering Facility: [facility] Address: [address] [place] [address] Performed By: #### 2 4321-2 #### [facility] CLIA [id number] [address] [place] [address] [place] Creatinine [Mass/Vol] 1.29 mg/dL High 0.58-0.96 [facility] Comment on above: Order Comment: Speci men Type: BLOOD SPECIMEN Ordering Facility: [facility] Address: [address] [place] [address] Performed By: #### 2 4321-2 #### [facility] CLIA [id number] [address] [place] [address] [place] Creatinine and Glomerular filtration rate.predicted panel (S/P/Bld) 46 mL/min/1.73m??? Low >=60 [facility] Comment on above: Order Comment: Speci men Type: BLOOD SPECIMEN Ordering Facility: [facility] Address: [address] [place] [address] Result Comment: Donna mated Glomerular Filtration Rate [...] GFR. Performed By: #### 2 4321-2 #### [facility] CLIA [id number] [address] [place] [address] [place] Glucose [Mass/Vol] 123 mg/dL High 74-99 [facility] Comment on above: Order Comment: [place] Type: BLOOD SPECIMEN Ordering Facility: [facility] Address: [address] [place] [address] Result Comment: The [place] Diabetes Association (ADA) provides guidance for cutoff [...] Standards of Medical Care in Diabetes 2016, [place] [employer]. Diabetes Care. 2016.39(Suppl 1). Performed By: #### 2 4321-2 #### [facility] CLIA [id number] [address] [place] [address] [place] Potassium [Moles/Vol] 5.0 mmol/L Normal 3.7-5.1 [facility] Comment on above: Order Comment: [place] Type: BLOOD SPECIMEN Ordering Facility: [facility] Address: [address] [place] [address] Performed By: #### 2 4321-2 #### [facility] CLIA [id number] [address] [place] [address] [place] Sodium [Moles/Vol] 136 mmol/L Normal 136-144 [facility] Comment on above: Order Comment: Speci men Type: BLOOD SPECIMEN Ordering Facility: [facility] Address: [address] [place] [address] Performed By: #### 2 4321-2 #### [facility] CLIA [id number] [address] [place] [address] [place] Urea nitrogen [Mass/Vol] 22 mg/dL High 7- [facility] Comment on above: Order Comment: Speci men Type: BLOOD SPECIMEN Ordering Facility: [facility] Address: [address] [place] [address] Performed By: #### 2 4321-2 #### [facility] CLIA [id number] [address] [place] [address] [place] CBC panel Auto (Bld)on 09-03 Erythrocyte distribution width (RBC) [Ratio] 14.6 % Normal 11.5-15.0 [facility] Comment on above: Order Comment: Speci men Type: BLOOD SPECIMEN Ordering Facility: [facility] Address: [address] [place] [address] Performed By: #### [place], [address]-7 #### [facility] CLIA [id number] [address] [place] [address] [place] Hematocrit (Bld) [Volume fraction] 28.7 % Low 36.0-46.0 [facility] Comment on above: Order Comment: Speci men Type: BLOOD SPECIMEN Ordering Facility: [facility] Address: [address] [place] [address] Performed By: #### B HB, 02393-2 #### [facility] CLIA [id number] [address] [place] [address] [place] Hemoglobin (Bld) [Mass/Vol] 8.9 g/dL Low 11.5-15.5 [facility] Comment on above: Order Comment: Speci men Type: BLOOD SPECIMEN Ordering Facility: [facility] Address: [address] [place] [address] Performed By: #### [place], 31695-8 #### [facility] CLIA [id number] [address] [place] [address] [place] MCH (RBC) [Entitic mass] 24.1 pg Low 26.0-34.0 [facility] Comment on above: Order Comment: Speci men Type: BLOOD SPECIMEN Ordering Facility: [facility] Address: [address] [place] [address] Performed By: #### [place], 43384-9 #### [facility] CLIA [id number] [address] [place] [address] [place] MCHC (RBC) [Mass/Vol] 31.0 g/dL Normal 30.5-36.0 [facility] Comment on above: Order Comment: Speci men Type: BLOOD SPECIMEN Ordering Facility: [facility] Address: [address] [place] [address] Performed By: #### B HB, #### [facility] CLIA [id number] [address] [place] [address] [place] MCV (RBC) [Entitic vol] 77.6 fL Low 80.0-100.0 [facility] Comment on above: Order Comment: Speci men Type: BLOOD SPECIMEN Ordering Facility: [facility] Address: [address] [place] [address] Performed By: #### B HB, #### [facility] CLIA [id number] [address] [place] [address] [place] Nucleated RBC (Bld) [#/Vol] 10*3/uL Normal <0.01 [facility] Comment on above: Order Comment: Speci men Type: BLOOD SPECIMEN Ordering Facility: [facility] Address: [address] [place] [address] Performed By: #### [place], [address]-5 #### [facility] CLIA [id number] [address] [place] [address] [place] Platelet mean volume (Bld) [Entitic vol] 10.8 fL Normal 9.0-12.7 [facility] Comment on above: Order Comment: Speci men Type: BLOOD SPECIMEN Ordering Facility: [facility] Address: [address] [place] [address] Performed By: #### [place], 28019-4 #### [facility] CLIA [id number] [address] [place] [address] [place] Platelets (Bld) [#/Vol] 334 10*3/uL Normal 150-400 [facility] Comment on above: Order Comment: Speci men Type: BLOOD SPECIMEN Ordering Facility: [facility] Address: [address] [place] [address] Performed By: #### B HB, 82763-5 #### [facility] CLIA [id number] [address] [place] [address] [place] RBC (Bld) [#/Vol] 3.70 10*6/uL Low 3.90-5.20 [facility] Comment on above: Order Comment: Speci men Type: BLOOD SPECIMEN Ordering Facility: [facility] Address: [address] [place] [address] Performed By: #### B HB, 76945-8 #### [facility] CLIA [id number] [address] [place] [address] [place] WBC (Bld) [#/Vol] 6.44 10*3/uL Normal 3.70-11.00 [facility] Comment on above: Order Comment: Speci men Type: BLOOD SPECIMEN Ordering Facility: [facility] Address: [address] [place] [address] Performed By: #### B HB, 00679-0 #### [facility] CLIA [id number] [address] [place] [address] [place] CT FOOT WO [...] NO EVIDENCE OF OSTEOMYELITIS ON THIS EXAMINATION. Automated Access Systems Technician: GUILLE Transcribe Date/Time: Sep 03 2023 11:22P Dictated by : FINESSE BUTLER MD This examination was interpreted and the report reviewed and electronically signed by: FINESSE BUTLER MD on Sep 03 2023 11:27PM EST [id number] Normal [facility] Basic metabolic 2000 panelon 09-02-2023 Anion gap [Moles/Vol] 9 mmol/L Normal 9-18 [facility] Comment on above: Order Comment: Speci men Type: BLOOD SPECIMEN Ordering Facility: [facility] Address: [address] [place] [address] Performed By: #### B [place], 84276-0 #### [facility] CLIA [id number] [address] [place] [address] [place] Calcium [Mass/Vol] 8.1 mg/dL Low 8.5-10.2 [facility] Comment on above: Order Comment: Speci men Type: BLOOD SPECIMEN Ordering Facility: [facility] Address: [address] [place] [address] Performed By: #### B HB, 44247-7 #### [facility] CLIA [id number] [address] [place] [address] [place] Chloride [Moles/Vol] 106 mmol/L High 97-105 [facility] Comment on above: Order Comment: Speci men Type: BLOOD SPECIMEN Ordering Facility: [facility] Address: [address] [place] [address] Performed By: #### B HB, 07167-3 #### [facility] CLIA [id number] [address] [place] [address] [place] CO2 [Moles/Vol] 22 mmol/L Normal 22-30 [facility] Comment on above: Order Comment: Simonai reinier Type: BLOOD SPECIMEN Ordering Facility: [facility] Address: [address] [place] [address] Performed By: #### B HB, 17522-0 #### [facility] CLIA [id number] [address] [place] [address] [place] Creatinine [Mass/Vol] 1.30 mg/dL High 0.58-0.96 [facility] Comment on above: Order Comment: Simonai reinier Type: BLOOD SPECIMEN Ordering Facility: [facility] Address: [address] [place] [address] Performed By: #### B HB, 84757-3 #### [facility] CLIA [id number] [address] [place] [address] [place] Creatinine and Glomerular filtration rate.predicted panel (S/P/Bld) 46 mL/min/1.73m??? Low >=60 [facility] Comment on above: Order Comment: Speci reinier Type: BLOOD SPECIMEN Ordering Facility: [facility] Address: [address] [place] [address] Result Comment: Donna mated Glomerular Filtration Rate [...] accurately reflect actual GFR. Performed By: #### B HB, 04416-8 #### [facility] CLIA [id number] [address] [place] [address] [place] Glucose [Mass/Vol] 192 mg/dL High 74-99 [facility] Comment on above: Order Comment: Speci men Type: BLOOD SPECIMEN Ordering Facility: [facility] Address: [address] [place] [address] Result Comment: The [place] Diabetes Association (ADA) provides guidance for cutoff [...] Standards of Medical Care in Diabetes 2016, [place] [employer] Association. Diabetes Care. 2016.39(Suppl 1). Performed By: #### B HB, 13138-0 #### [facility] CLIA [id number] [address] [place] [address] [place] Potassium [Moles/Vol] 4.9 mmol/L Normal 3.7-5.1 [facility] Comment on above: Order Comment: Speci men Type: BLOOD SPECIMEN Ordering Facility: [facility] Address: [address] [place] [address] Performed By: #### B HB, 07103-9 #### [facility] CLIA [id number] [address] [place] [address] [place] Sodium [Moles/Vol] 137 mmol/L Normal 136-144 [facility] Comment on above: Order Comment: [place] Type: BLOOD SPECIMEN Ordering Facility: [facility] Address: [address] [place] [address] Performed By: #### B HB, 31682-5 #### [facility] CLIA [id number] [address] [place] [address] [place] Urea nitrogen [Mass/Vol] 17 mg/dL Normal 7-21 [facility] Comment on above: Order Comment: Simonai men Type: BLOOD SPECIMEN Ordering Facility: [facility] Address: [address] [place] [address] Performed By: #### B HB, 53458-0 #### [facility] CLIA [id number] [address] [place] [address] [place] CBC panel Auto (Bld)on 09-02 Erythrocyte distribution width (RBC) [Ratio] 14.6 % Normal 11.5-15.0 [facility] Comment on above: Order Comment: Speci men Type: BLOOD SPECIMEN Ordering Facility: [facility] Address: [address] [place] [address] Performed By: #### B HB, #### [facility] CLIA [id number] [address] [place] [address] [place] Hematocrit (Bld) [Volume fraction] 28.4 % Low 36.0-46.0 [facility] Comment on above: Order Comment: Speci men Type: BLOOD SPECIMEN Ordering Facility: [facility] Address: [address] [place] [address] Performed By: #### B HB, #### [facility] CLIA [id number] [address] [place] [address] [place] Hemoglobin (Bld) [Mass/Vol] 8.9 g/dL Low 11.5-15.5 [facility] Comment on above: Order Comment: Speci men Type: BLOOD SPECIMEN Ordering Facility: [facility] Address: [address] [place] [address] Performed By: #### B HB, #### [facility] CLIA [id number] [address] [place] [address] [place] MCH (RBC) [Entitic mass] 24.2 pg Low 26.0-34.0 [facility] Comment on above: Order Comment: Speci men Type: BLOOD SPECIMEN Ordering Facility: [facility] Address: [address] [place] [address] Performed By: #### B HB, #### [facility] CLIA [id number] [address] [place] [address] [place] MCHC (RBC) [Mass/Vol] 31.3 g/dL Normal 30.5-36.0 [facility] Comment on above: Order Comment: Speci men Type: BLOOD SPECIMEN Ordering Facility: [facility] Address: [address] [place] [address] Performed By: #### B HB, #### [facility] CLIA [id number] [address] [place] [address] [place] MCV (RBC) [Entitic vol] 77.2 fL Low 80.0-100.0 [facility] Comment on above: Order Comment: Speci men Type: BLOOD SPECIMEN Ordering Facility: [facility] Address: [address] [place] [address] Performed By: #### B HB, #### [facility] CLIA [id number] [address] [place] [address] [place] Nucleated RBC (Bld) [#/Vol] 10*3/uL Normal <0.01 [facility] Comment on above: Order Comment: Speci men Type: BLOOD SPECIMEN Ordering Facility: [facility] Address: [address] [place] [address] Performed By: #### B HB, #### [facility] CLIA [id number] [address] [place] [address] [place] Platelet mean volume (Bld) [Entitic vol] 10.4 fL Normal 9.0-12.7 [facility] Comment on above: Order Comment: Speci men Type: BLOOD SPECIMEN Ordering Facility: [facility] Address: [address] [place] [address] Performed By: #### B HB, #### [facility] CLIA [id number] [address] [place] [address] [place] Platelets (Bld) [#/Vol] 285 10*3/uL Normal 150-400 [facility] Comment on above: Order Comment: Speci men Type: BLOOD SPECIMEN Ordering Facility: [facility] Address: [address] [place] [address] Performed By: #### B HB, #### [facility] CLIA [id number] [address] [place] [address] [place] RBC (Bld) [#/Vol] 3.68 10*6/uL Low 3.90-5.20 [facility] Comment on above: Order Comment: Speci men Type: BLOOD SPECIMEN Ordering Facility: [facility] Address: [address] [place] [address] Performed By: #### B [place], 85707-8 #### [facility] CLIA [id number] [address] [place] [address] [place] WBC (Bld) [#/Vol] 5.94 10*3/uL Normal 3.70-11.00 [facility] Comment on above: Order Comment: Speci men Type: BLOOD SPECIMEN Ordering Facility: [facility] Address: [address] [place] [address] Performed By: #### B HB, 20005-0 #### [facility] CLIA [id number] [address] [place] [address] [place] Bacteria Ur Culton 4 Bacteria identified Cx Nom (U) CULTURE, URINE: No growth (<1,000 CFU/ml) Normal [facility] Comment on above: Performed By: #### 6 30-4 #### [facility] CLIA [id number] [address] [facility] [id number] [address] [place] Basic metabolic 2000 panelon 09-01-2023 Anion gap [Moles/Vol] 10 mmol/L Normal 9-18 [facility] Comment on above: Order Comment: Speci men Type: BLOOD SPECIMEN Ordering Facility: [facility] Address: [address] [place] [address] Performed By: #### B HB, 75724-1 #### [facility] CLIA [id number] [place] [address] [place] Calcium [Mass/Vol] 7.9 mg/dL Low 8.5-10.2 [facility] Comment on above: Order Comment: Speci men Type: BLOOD SPECIMEN Ordering Facility: [facility] Address: [address] [place] [address] Performed By: #### B HB, 53587-2 #### [facility] CLIA [id number] [address] [place] [address] [place] Chloride [Moles/Vol] 108 mmol/L High 97-105 [facility] Comment on above: Order Comment: Speci men Type: BLOOD SPECIMEN Ordering Facility: [facility] Address: [address] [place] [address] Performed By: #### B [place], 99409-9 #### [facility] CLIA [id number] [address] [place] [address] [place] CO2 [Moles/Vol] 20 mmol/L Low 22-30 [facility] Comment on above: Order Comment: Speci men Type: BLOOD SPECIMEN Ordering Facility: [facility] Address: [address] [place] [address] Performed By: #### B HB, 32835-2 #### [facility] CLIA [id number] [address] [place] [address] [place] Creatinine [Mass/Vol] 1.39 mg/dL High 0.58-0.96 [facility] Comment on above: Order Comment: Speci men Type: BLOOD SPECIMEN Ordering Facility: [facility] Address: [address] [place] [address] Performed By: #### B HB, 24935-9 #### [facility] CLIA [id number] [address] [place] [address] [place] Creatinine and Glomerular filtration rate.predicted panel (S/P/Bld) 42 mL/min/1.73m??? Low >=60 [facility] Comment on above: Order Comment: Speci men Type: BLOOD SPECIMEN Ordering Facility: [facility] Address: [address] [place] [address] Result Comment: Donna mated Glomerular Filtration Rate [...] accurately reflect actual GFR. Performed By: #### B HB, 06497-3 #### [facility] CLIA [id number] [place] [address] [place] Glucose [Mass/Vol] 74 mg/dL Normal 74-99 [facility] Comment on above: Order Comment: [place] Type: BLOOD SPECIMEN Ordering Facility: [facility] Address: [address] [place] [address] Result Comment: The [place] [employer] (ADA) provides guidance for cutoff [...] Standards of Medical Care in Diabetes 2016, [place] [employer]. Diabetes Care. 2016.39(Suppl 1). Performed By: #### B HB, 92052-7 #### [facility] CLIA [id number] [address] [place] [address] [place] Potassium [Moles/Vol] 4.7 mmol/L Normal 3.7-5.1 [facility] Comment on above: Order Comment: [place] Type: BLOOD SPECIMEN Ordering Facility: [facility] Address: [address] [place] [address] Performed By: #### B HB, 42405-4 #### [facility] CLIA [id number] [address] [place] [address] [place] Sodium [Moles/Vol] 138 mmol/L Normal 136-144 [facility] Comment on above: Order Comment: [place] Type: BLOOD SPECIMEN Ordering Facility: [facility] Address: [address] [place] [address] Performed By: #### B HB, 30084-9 #### [facility] CLIA [id number] [address] [place] [address] [place] Urea nitrogen [Mass/Vol] 25 mg/dL High 7-21 [facility] Comment on above: Order Comment: [place] Type: BLOOD SPECIMEN Ordering Facility: [facility] Address: [address] [place] [address] Performed By: #### B HB, #### [facility] CLIA [id number] [address] [place] [address] [place] CBC panel Auto (Bld)on 09-01 Erythrocyte distribution width (RBC) [Ratio] 14.7 % Normal 11.5-15.0 [facility] Comment on above: Order Comment: Speci men Type: BLOOD SPECIMEN Ordering Facility: [facility] Address: [address] [place] [address] Performed By: #### B HB, #### [facility] CLIA [id number] [address] [place] [address] [place] Hematocrit (Bld) [Volume fraction] 29.4 % Low 36.0-46.0 [facility] Comment on above: Order Comment: Speci men Type: BLOOD SPECIMEN Ordering Facility: [facility] Address: [address] [place] [address] Performed By: #### B HB, #### [facility] CLIA [id number] [address] [place] [address] [place] Hemoglobin (Bld) [Mass/Vol] 9.1 g/dL Low 11.5-15.5 [facility] Comment on above: Order Comment: Speci men Type: BLOOD SPECIMEN Ordering Facility: [facility] Address: [address] [place] [address] Performed By: #### B HB, #### [facility] CLIA [id number] [address] [place] [address] [place] MCH (RBC) [Entitic mass] 24.4 pg Low 26.0-34.0 [facility] Comment on above: Order Comment: Speci men Type: BLOOD SPECIMEN Ordering Facility: [facility] Address: [address] [place] [address] Performed By: #### B HB, 85333-8 #### [facility] CLIA [id number] [address] [place] [address] [place] MCHC (RBC) [Mass/Vol] 31.0 g/dL Normal 30.5-36.0 [facility] Comment on above: Order Comment: Speci men Type: BLOOD SPECIMEN Ordering Facility: [facility] Address: [address] [place] [address] Performed By: #### B HB, #### [facility] CLIA [id number] [address] [place] [address] [place] MCV (RBC) [Entitic vol] 78.8 fL Low 80.0-100.0 [facility] Comment on above: Order Comment: Speci men Type: BLOOD SPECIMEN Ordering Facility: [facility] Address: [address] [place] [address] Performed By: #### B HB, #### [facility] CLIA [id number] [address] [place] [address] [place] Nucleated RBC (Bld) [#/Vol] 10*3/uL Normal <0.01 [facility] Comment on above: Order Comment: Speci men Type: BLOOD SPECIMEN Ordering Facility: [facility] Address: [address] [place] [address] Performed By: #### B HB, #### [facility] CLIA [id number] [address] [place] [address] [place] Platelet mean volume (Bld) [Entitic vol] 10.8 fL Normal 9.0-12.7 [facility] Comment on above: Order Comment: Speci men Type: BLOOD SPECIMEN Ordering Facility: [facility] Address: [address] [place] [address] Performed By: #### B HB, #### [facility] CLIA [id number] [address] [place] [address] [place] Platelets (Bld) [#/Vol] 275 10*3/uL Normal 150-400 [facility] Comment on above: Order Comment: Speci men Type: BLOOD SPECIMEN Ordering Facility: [facility] Address: [address] [place] [address] Performed By: #### B HB, #### [facility] CLIA [id number] [address] [place] [address] [place] RBC (Bld) [#/Vol] 3.73 10*6/uL Low 3.90-5.20 [facility] Comment on above: Order Comment: Speci men Type: BLOOD SPECIMEN Ordering Facility: [facility] Address: [address] [place] [address] Performed By: #### B HB, 64015-7 #### [facility] CLIA [id number] [address] [place] [address] [place] WBC (Bld) [#/Vol] 7.48 10*3/uL Normal 3.70-11.00 [facility] Comment on above: Order Comment: Speci men Type: BLOOD SPECIMEN Ordering Facility: [facility] Address: [address] [place] [address] Performed By: #### B HB, 46644-5 #### [facility] CLIA [id number] [place] [address] [place] CONSULTon 09-01-2023 CONSULT HNO ID: [id number] Author: NORMAN ROUSSEAU RN Service: ? Author Type: Registered Nurse Type: Consults Filed: 09/01/2023 10:46 Note Text: ANCILLARY WOUND CARE PROGRESS NOTE SERVICE DATE: 09/01/2023 SERVICE TIME: 1030 RE: left foot wound Podiatry service was consulted for the pt's left foot. Please follow Podiatry recommendations. Wound Team will sign off. SIGNATURE: Norman Rousseau RN PATIENT NAME: Aislinn Wheeler DATE: September 01, 2023 TIME: 10:44 AM PAGER/CONTACT #: Normal [facility] Magnesium SerPl-mCncon 09-01 Magnesium [Mass/Vol] 1.5 mg/dL Low 1.7-2.3 [facility] Comment on above: Order Comment: Speci men Type: BLOOD SPECIMEN Ordering Facility: [facility] Address: [address] [place] [address] Performed By: #### B HB, 40662-7 #### [facility] CLIA [id number] [place] [address] [place] URINALYSIS, REFLEX MICROSCOP ICon 09-01-2023 Bacteria LM.HPF (Urine sed) [#/Area] Few Abnormal None Seen [facility] Comment on above: Order Comment: Speci men Type: BLOOD SPECIMEN Ordering Facility: [facility] Address: [address] [place] [address] Performed By: #### B HB, #### [facility] CLIA [id number] [address] [place] [address] [place] Bilirubin Ql (U) Negative Normal Negative [facility] Comment on above: Order Comment: Speci men Type: BLOOD SPECIMEN Ordering Facility: [facility] Address: [address] [place] [address] Performed By: #### B HB, #### [facility] CLIA [id number] [address] [place] [address] [place] Clarity (Unsp spec) Turbid Abnormal Clear [facility] Comment on above: Order Comment: Speci men Type: BLOOD SPECIMEN Ordering Facility: [facility] Address: [address] [place] [address] Performed By: #### B HB, #### [facility] CLIA [id number] [address] [place] [address] [place] Color (U) Light Yellow Normal Yellow [facility] Comment on above: Order Comment: Speci men Type: BLOOD SPECIMEN Ordering Facility: [facility] Address: [address] [place] [address] Performed By: #### B HB, #### [facility] CLIA [id number] [address] [place] [address] [place] Epithelial cells LM.HPF (Urine sed) [#/Area] Few Normal [facility] Comment on above: Order Comment: Speci men Type: BLOOD SPECIMEN Ordering Facility: [facility] Address: [address] [place] [address] Performed By: #### B HB, #### [facility] CLIA [id number] [address] [place] [address] [place] Glucose Test strip (U) [Mass/Vol] Negative Normal Trace, Negative [facility] Comment on above: Order Comment: Speci men Type: BLOOD SPECIMEN Ordering Facility: [facility] Address: [address] [place] [address] Performed By: #### B HB, #### [facility] CLIA [id number] [address] [place] [address] [place] Hemoglobin Ql (U) 1+ Abnormal Negative, Trace [facility] Comment on above: Order Comment: Speci men Type: BLOOD SPECIMEN Ordering Facility: [facility] Address: [address] [place] [address] Performed By: #### B HB, #### [facility] CLIA [id number] [address] [place] [address] [place] Ketones Ql (U) Negative Normal Negative, Trace [facility] Comment on above: Order Comment: Speci men Type: BLOOD SPECIMEN Ordering Facility: [facility] Address: [address] [place] [address] Performed By: #### B HB, #### [facility] CLIA [id number] [address] [place] [address] [place] Leukocyte esterase Test strip Ql (U) 500 Yuan/uL Abnormal Negative, 25 Yuan/uL [facility] Comment on above: Order Comment: Speci men Type: BLOOD SPECIMEN Ordering Facility: [facility] Address: [address] [place] [address] Performed By: #### B HB, #### [facility] CLIA [id number] [address] [place] [address] [place] Nitrite Ql (U) Negative Normal Negative [facility] Comment on above: Order Comment: Speci men Type: BLOOD SPECIMEN Ordering Facility: [facility] Address: [address] [place] [address] Performed By: #### B HB, #### [facility] CLIA [id number] [address] [place] [address] [place] pH (U) 6.0 [pH] Normal 5.0-8.0 [facility] Comment on above: Order Comment: Speci men Type: BLOOD SPECIMEN Ordering Facility: [facility] Address: [address] [place], [place] [id number] Performed By: #### B HB, #### [facility] CLIA [id number] [address] [place] [address] [place] Protein (U) [Mass/Vol] 1+ Abnormal Trace, Negative [facility] Comment on above: Order Comment: Speci men Type: BLOOD SPECIMEN Ordering Facility: [facility] Address: [address] [place] [address] Performed By: #### B HB, #### [facility] CLIA [id number] [address] [place] [address] [place] RBC LM.HPF (Urine sed) [#/Area] /[HPF] Abnormal 0-3 /HPF [facility] Comment on above: Order Comment: Speci men Type: BLOOD SPECIMEN Ordering Facility: [facility] Address: [address] [place] [address] Performed By: #### B HB, #### [facility] CLIA [id number] [address] [place] [address] [place] Specific gravity (U) [Rel density] 1.011 Normal 1.005-1.030 [facility] Comment on above: Order Comment: Speci men Type: BLOOD SPECIMEN Ordering Facility: [facility] Address: [address] [place] [address] Performed By: #### B HB, #### [facility] CLIA [id number] [address] [place] [address] [place] Urobilinogen Ql (U) Negative Normal Negative [facility] Comment on above: Order Comment: Speci men Type: BLOOD SPECIMEN Ordering Facility: [facility] Address: [address] [place] [address] Performed By: #### B HB, #### [facility] CLIA [id number] [address] [place] [address] [place] WBC LM.HPF (Urine sed) [#/Area] /[HPF] Abnormal 0-5 /HPF [facility] Comment on above: Order Comment: Speci men Type: BLOOD SPECIMEN Ordering Facility: [facility] Address: [address] [place] [address] Performed By: #### B , 11782-3 #### [facility] CLIA [id number] [address] [place] [address] [place] ALLIED HEALTHon 08-31-2023 ALLIED HEALTH HNO ID: [id number] Author: LAKISHA LITTLE RT(R) Service: ? Author Type: Technologist [...] Chriss(R) August 31, 2023 4:44 AM Normal [facility] Bacteria Bld Culton 08-31-19 24 Bacteria identified Cx Nom (Bld) CULTURE, BLOOD: No growth 5 days Normal [facility] Comment on above: Performed By: #### 6 00-7 ####[facility] [id number] [address] [place] Bacteria Ur Culton 4 Bacteria [...] technique or straight catheterization for???urine???collectio n. Normal [facility] Comment on above: Performed By: #### 6 30-4 #### [facility] CLIA [id number] [address] [facility] [id number] [address] [place] CBC W Auto Differential pane l (Bld)on 08-31-2023 Basophils (Bld) [#/Vol] 0.03 10*3/uL Normal <0.11 [facility] Comment on above: Order Comment: Speci men Type: BLOOD SPECIMEN Ordering Facility: [facility] Address: [address] [place] [address] Performed By: #### B HB, #### [facility] CLIA [id number] [address] [place] [address] [place] Basophils/100 WBC (Bld) 0.3 % Normal [facility] Comment on above: Order Comment: Speci men Type: BLOOD SPECIMEN Ordering Facility: [facility] Address: [address] [place] [address] Performed By: #### B HB, #### [facility] CLIA [id number] [address] [place] [address] [place] Differential cell count method Nom (Bld) Auto Normal [facility] Comment on above: Order Comment: Speci men Type: BLOOD SPECIMEN Ordering Facility: [facility] Address: [address] [place] [address] Performed By: #### B HB, #### [facility] CLIA [id number] [address] [place] [address] [place] Eosinophils (Bld) [#/Vol] 10*3/uL Normal <0.46 [facility] Comment on above: Order Comment: Speci men Type: BLOOD SPECIMEN Ordering Facility: [facility] Address: [address] [place] [address] Performed By: #### B HB, #### [facility] CLIA [id number] [address] [place] [address] [place] Eosinophils/100 WBC (Bld) 0.1 % Normal [facility] Comment on above: Order Comment: Speci men Type: BLOOD SPECIMEN Ordering Facility: [facility] Address: [address] [place] [address] Performed By: #### B HB, #### [facility] CLIA [id number] [address] [place] [address] [place] Erythrocyte distribution width (RBC) [Ratio] 14.5 % Normal 11.5-15.0 [facility] Comment on above: Order Comment: Speci men Type: BLOOD SPECIMEN Ordering Facility: [facility] Address: [address] [place] [address] Performed By: #### B HB, #### [facility] CLIA [id number] [address] [place] [address] [place] Hematocrit (Bld) [Volume fraction] 31.5 % Low 36.0-46.0 [facility] Comment on above: Order Comment: Speci men Type: BLOOD SPECIMEN Ordering Facility: [facility] Address: [address] [place] [address] Performed By: #### B HB, #### [facility] CLIA [id number] [address] [place] [address] [place] Hemoglobin (Bld) [Mass/Vol] 10.0 g/dL Low 11.5-15.5 [facility] Comment on above: Order Comment: Speci men Type: BLOOD SPECIMEN Ordering Facility: [facility] Address: [address] [place] [address] Performed By: #### B HB, #### [facility] CLIA [id number] [address] [place] [address] [place] Immature granulocytes (Bld) [#/Vol] 0.06 10*3/uL Normal <0.10 [facility] Comment on above: Order Comment: Speci men Type: BLOOD SPECIMEN Ordering Facility: [facility] Address: [address] [place] [address] Performed By: #### B HB, #### [facility] CLIA [id number] [address] [place] [address] [place] Immature granulocytes/100 WBC (Bld) 0.7 % Normal [facility] Comment on above: Order Comment: Speci men Type: BLOOD SPECIMEN Ordering Facility: [facility] Address: [address] [place] [address] Performed By: #### B HB, #### [facility] CLIA [id number] [address] [place] [address] [place] Lymphocytes (Bld) [#/Vol] 1.67 10*3/uL Normal 1.00-4.00 [facility] Comment on above: Order Comment: Speci men Type: BLOOD SPECIMEN Ordering Facility: [facility] Address: [address] [place] [address] Performed By: #### B HB, #### [facility] CLIA [id number] [address] [place] [address] [place] Lymphocytes/100 WBC (Bld) 18.8 % Normal [facility] Comment on above: Order Comment: Speci men Type: BLOOD SPECIMEN Ordering Facility: [facility] Address: [address] [place] [address] Performed By: #### B HB, #### [facility] CLIA [id number] [address] [place] [address] [place] MCH (RBC) [Entitic mass] 24.5 pg Low 26.0-34.0 [facility] Comment on above: Order Comment: Speci men Type: BLOOD SPECIMEN Ordering Facility: [facility] Address: [address] [place] [address] Performed By: #### B HB, #### [facility] CLIA [id number] [address] [place] [address] [place] MCHC (RBC) [Mass/Vol] 31.7 g/dL Normal 30.5-36.0 [facility] Comment on above: Order Comment: Speci men Type: BLOOD SPECIMEN Ordering Facility: [facility] Address: [address] [place] [address] Performed By: #### B HB, #### [facility] CLIA [id number] [address] [place] [address] [place] MCV (RBC) [Entitic vol] 77.2 fL Low 80.0-100.0 [facility] Comment on above: Order Comment: Speci men Type: BLOOD SPECIMEN Ordering Facility: [facility] Address: [address] [place] [address] Performed By: #### B HB, #### [facility] CLIA [id number] [address] [place] [address] [place] Monocytes (Bld) [#/Vol] 0.71 10*3/uL Normal <0.87 [facility] Comment on above: Order Comment: Speci men Type: BLOOD SPECIMEN Ordering Facility: [facility] Address: [address] [place] [address] Performed By: #### B HB, #### [facility] CLIA [id number] [address] [place] [address] [place] Monocytes/100 WBC (Bld) 8.0 % Normal [facility] Comment on above: Order Comment: Speci men Type: BLOOD SPECIMEN Ordering Facility: [facility] Address: [address] [place] [address] Performed By: #### B HB, #### [facility] CLIA [id number] [address] [place] [address] [place] Neutrophils (Bld) [#/Vol] 6.39 10*3/uL Normal 1.45-7.50 [facility] Comment on above: Order Comment: Speci men Type: BLOOD SPECIMEN Ordering Facility: [facility] Address: [address] [place] [address] Performed By: #### B HB, #### [facility] CLIA [id number] [address] [place] [address] [place] Neutrophils/100 WBC (Bld) 72.1 % Normal [facility] Comment on above: Order Comment: Speci men Type: BLOOD SPECIMEN Ordering Facility: [facility] Address: [address] [place] [address] Performed By: #### B HB, #### [facility] CLIA [id number] [address] [place] [address] [place] Nucleated RBC (Bld) [#/Vol] 10*3/uL Normal <0.01 [facility] Comment on above: Order Comment: Speci men Type: BLOOD SPECIMEN Ordering Facility: [facility] Address: [address] [place] [address] Performed By: #### B HB, #### [facility] CLIA [id number] [address] [place] [address] [place] Nucleated RBC/100 WBC (Bld) [Ratio] 0.0 /100 WBC Normal [facility] Comment on above: Order Comment: Speci men Type: BLOOD SPECIMEN Ordering Facility: [facility] Address: [address] [place] [address] Performed By: #### B HB, #### [facility] CLIA [id number] [address] [place] [address] [place] Platelet mean volume (Bld) [Entitic vol] 11.3 fL Normal 9.0-12.7 [facility] Comment on above: Order Comment: Speci men Type: BLOOD SPECIMEN Ordering Facility: [facility] Address: [address] [place] [address] Performed By: #### B HB, #### [facility] CLIA [id number] [address] [place] [address] [place] Platelets (Bld) [#/Vol] 316 10*3/uL Normal 150-400 [facility] Comment on above: Order Comment: Speci men Type: BLOOD SPECIMEN Ordering Facility: [facility] Address: [address] [place] [address] Performed By: #### B HB, #### [facility] CLIA [id number] [address] [place] [address] [place] RBC (Bld) [#/Vol] 4.08 10*6/uL Normal 3.90-5.20 [facility] Comment on above: Order Comment: Speci men Type: BLOOD SPECIMEN Ordering Facility: [facility] Address: [address] [place] [address] Performed By: #### B HB, 62647-8 #### [facility] CLIA [id number] [address] [place] [address] [place] WBC (Bld) [#/Vol] 8.87 10*3/uL Normal 3.70-11.00 [facility] Comment on above: Order Comment: Speci men Type: BLOOD SPECIMEN Ordering Facility: [facility] Address: [address] [place] [address] Performed By: #### B HB, 90380-2 #### [facility] CLIA [id number] [address] [place] [address] [place] Comprehensive metabolic 2000 panelon 08-31-2023 Albumin [Mass/Vol] 3.7 g/dL Low 3.9-4.9 [facility] Comment on above: Order Comment: Speci men Type: BLOOD SPECIMEN Ordering Facility: [facility] Address: [address] [place] [address] Performed By: #### B HB, 82234-4 #### [facility] CLIA [id number] [address] [place] [address] [place] ALP [Catalytic activity/Vol] 99 U/L Normal 34-123 [facility] Comment on above: Order Comment: Speci men Type: BLOOD SPECIMEN Ordering Facility: [facility] Address: [address] [place] [address] Performed By: #### B HB, 56778-9 #### [facility] CLIA [id number] [address] [place] [address] [place] ALT [Catalytic activity/Vol] U/L Low 7-38 [facility] Comment on above: Order Comment: Speci men Type: BLOOD SPECIMEN Ordering Facility: [facility] Address: [address] [place] [address] Performed By: #### B HB, 68015-1 #### [facility] CLIA [id number] [address] [place] [address] [place] Anion gap [Moles/Vol] 12 mmol/L Normal 9-18 [facility] Comment on above: Order Comment: Speci men Type: BLOOD SPECIMEN Ordering Facility: [facility] Address: [address] [place] [address] Performed By: #### B HB, #### [facility] CLIA [id number] [address] [place] [address] [place] AST [Catalytic activity/Vol] 7 U/L Low 13-35 [facility] Comment on above: Order Comment: Speci men Type: BLOOD SPECIMEN Ordering Facility: [facility] Address: [address] [place] [address] Performed By: #### B HB, #### [facility] CLIA [id number] [address] [place] [address] [place] Bilirubin [Mass/Vol] 0.3 mg/dL Normal 0.2-1.3 [facility] Comment on above: Order Comment: Speci men Type: BLOOD SPECIMEN Ordering Facility: [facility] Address: [address] [place] [address] Performed By: #### B HB, #### [facility] CLIA [id number] [address] [place] [address] [place] Calcium [Mass/Vol] 8.7 mg/dL Normal 8.5-10.2 [facility] Comment on above: Order Comment: Speci men Type: BLOOD SPECIMEN Ordering Facility: [facility] Address: [address] [place] [address] Performed By: #### B HB, #### [facility] CLIA [id number] [address] [place] [address] [place] Chloride [Moles/Vol] 99 mmol/L Normal 97-105 [facility] Comment on above: Order Comment: Speci men Type: BLOOD SPECIMEN Ordering Facility: [facility] Address: [address] [place] [address] Performed By: #### B HB, #### [facility] CLIA [id number] [address] [place] [address] [place] CO2 [Moles/Vol] 19 mmol/L Low 22-30 [facility] Comment on above: Order Comment: Speci men Type: BLOOD SPECIMEN Ordering Facility: [facility] Address: [address] [place] [address] Performed By: #### B HB, 48434-9 #### [facility] CLIA [id number] [address] [place] [address] [place] Creatinine [Mass/Vol] 2.15 mg/dL High 0.58-0.96 [facility] Comment on above: Order Comment: Diallo reinier Type: BLOOD SPECIMEN Ordering Facility: [facility] Address: [address] [place] [address] Performed By: #### B HB, 40790-3 #### [facility] CLIA [id number] [place] [address] [place] Creatinine and Glomerular filtration rate.predicted panel (S/P/Bld) 25 mL/min/1.73m??? Low >=60 [facility] Comment on above: Order Comment: Diallo reinier Type: BLOOD SPECIMEN Ordering Facility: [facility] Address: [address] [place] [address] Result Comment: Donna mated Glomerular Filtration Rate [...] accurately reflect actual GFR. Performed By: #### B HB, 55160-3 #### [facility] CLIA [id number] [place] [address] [place] Glucose [Mass/Vol] 428 mg/dL High 74-99 [facility] Comment on above: Order Comment: [place] Type: BLOOD SPECIMEN Ordering Facility: [facility] Address: [address] [place] [address] Result Comment: The [place] [employer] (ADA) provides guidance for cutoff [...] Standards of Medical Care in Diabetes 2016, [place] [employer]. Diabetes Care. 2016.39(Suppl 1). Performed By: #### B HB, 44702-6 #### [facility] CLIA [id number] [address] [place] [address] [place] Potassium [Moles/Vol] 5.2 mmol/L High 3.7-5.1 [facility] Comment on above: Order Comment: [place] Type: BLOOD SPECIMEN Ordering Facility: [facility] Address: [address] [place] [address] Performed By: #### B HB, 43001-5 #### [facility] CLIA [id number] [address] [place] [address] [place] Protein [Mass/Vol] 9.1 g/dL High 6.3-8.0 [facility] Comment on above: Order Comment: [place] Type: BLOOD SPECIMEN Ordering Facility: [facility] Address: [address] [place] [address] Performed By: #### B HB, 08247-0 #### [facility] CLIA [id number] [address] [place] [address] [place] Sodium [Moles/Vol] 130 mmol/L Low 136-144 [facility] Comment on above: Order Comment: Simonai men Type: BLOOD SPECIMEN Ordering Facility: [facility] Address: [address] [place] [address] Performed By: #### B HB, 26062-7 #### [facility] CLIA [id number] [address] [place] [address] [place] Urea nitrogen [Mass/Vol] 39 mg/dL High 7-21 [facility] Comment on above: Order Comment: Simonai men Type: BLOOD SPECIMEN Ordering Facility: [facility] Address: [address] [place] [address] Performed By: #### B HB, 53491-4 #### [facility] CLIA [id number] STATES OF [facility] ECG COMPLETEon 08-31-2023 ECG COMPLETE Ventricular Rate : 7 1 BPM Atrial Rate : 71 BPM P-R Interval : 166 ms QRS Duration : 80 ms Q-T Interval : 396 ms QTC Calculation(Bazett) : 431 ms Calculated P [place] : 82 degrees Calculated R [place] : 71 degrees Calculated T [place] : 48 degrees Sinus rhythm Normal ECG NO STEMI. 0752 Confirmed by MD DE LEON MICHAEL ([id number]), editor continuity and script THERESA SEAY ([id number]) on 08/31/2023 1:24:15 PM NAME : AISLINN WHEELER PID : [id number] : 1960 Gender : Female Race : ORD : [id number] Procedure Date : Aug 31 2023 07:16:42 Edit Date : Aug 31 2023 13:24:16 Diagnosis: Sinus rhythm Normal ECG NO STEMI. 0752 Confirmed by MD DE LEON MICHAEL ([id number]), editor continuity and script THERESA SEAY ([id number]) on 08/31/2023 1:24:15 PM Test Reason : Chest Pain Location : 402 : FVED fved05 Overread By : MD DE LEON MICHAEL Edited By : THERESA SEAY Referred By : , Acquired by : [id number], [facility] ECG COMPLETE Ventricular Rate : 8 8 BPM Atrial Rate : 88 BPM P-R Interval : 153 ms QRS Duration : 78 ms Q-T Interval : 370 ms QTC Calculation(Bazett) : 448 ms Calculated P [place] : 85 degrees Calculated R [place] : 69 degrees Calculated T [place] : 62 degrees Sinus rhythm Normal ECG NO STEMI. 0604 Confirmed by KASIE SANDOVAL MD ([id number]), editor continuity and script THERESA SEAY ([id number]) on 08/31/2023 1:02:55 PM NAME : AISLINN WHEELER PID : [id number] : 1960 Gender : Female Race : ORD : [id number] Procedure Date : Aug 31 2023 04:17:52 Edit Date : Aug 31 2023 13:02:57 Diagnosis: Sinus rhythm Normal ECG NO STEMI. 0604 Confirmed by KASIE SANDOVAL MD ([id number]), editor continuity and script THERESA SEAY ([id number]) on 08/31/2023 1:02:55 PM Test Reason : Arrhythmia Location : 402 : FVED fved05 Overread By : KASIE SANDOVAL MD Edited By : THERESA SEAY Referred By : , Acquired by : [id number], Normal [facility] ED PROV NOTEon 08-31-2023 ED PROV NOTE HNO ID: [id number] Author: RAYNA RHODES PA-C Service: Emergency Medicine Author Type: Physician Crm Business Analyst Type: ED Provider Notes Filed: 08/31/2023 08:06 Note Text: Attestation signed by Kasie Sandoval MD at 09/01/2023 11:55 AM Attending Note I have personally performed a face to face assessment of the patient and have reviewed the ELIF note. I performed a substantive portion of [...] discussed the plan of care with the ELIF and agree with the findings documented. I [...] left foot. 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 Normal [facility] FLUABV+SARS-CoV-2+RSV Pnl Re sp ADRIEL+probeon 08-31-2023 FLUABV+SARS-CoV-2+RS V Pnl Resp ADRIEL+probe COVID 19 RESULT: Not detected The method used is RT-PCR or an equivalent NAAT method. Reference Range(the expected result in uninfected individuals): Not detected INFLUENZA A PCR: Not detected INFLUENZA B PCR: Not detected RSV PCR: Not detected Normal [facility] Comment on above: Performed By: #### 9 5941-1 ####[facility] [id number] [place] [address] [place] Gas and Carbon monoxide pane l (BldV)on 08-31-2023 BASE DEFICIT, VENOUS -5 mmol/L Low -2-0 [facility] Comment on above: Order Comment: Speci men Type: VENOUS BLOOD SPECIMEN Ordering Facility: [facility] Address: [address] [place] [address] Performed By: #### 2 4344-4 #### [facility] CLIA [id number] [address] [place] [address] [place] Body temperature 100.04 [degF] Normal [facility] Comment on above: Order Comment: Speci men Type: VENOUS BLOOD SPECIMEN Ordering Facility: [facility] Address: [address] [place] [address] Performed By: #### 2 4344-4 #### [facility] CLIA [id number] [address] [place] [address] [place] Calcium.ionized (Bld) [Mass/Vol] 1.08 mmol/L Normal 1.08-1.30 [facility] Comment on above: Order Comment: Speci men Type: VENOUS BLOOD SPECIMEN Ordering Facility: [facility] Address: [address] [place] [address] Performed By: #### 2 4344-4 #### [facility] CLIA [id number] [address] [place] [address] [place] Calcium.ionized adjusted to pH 7.4 (BldA) [Moles/Vol] 1.06 mmol/L Low 1.08-1.30 [facility] Comment on above: Order Comment: Speci men Type: VENOUS BLOOD SPECIMEN Ordering Facility: [facility] Address: [address] [place] [address] Performed By: #### 2 4344-4 #### [facility] CLIA [id number] [address] [place] [address] [place] Carboxyhemoglobin (BldV) [Mass fraction] 3.8 % High 0.0-2.0 [facility] Comment on above: Order Comment: Speci men Type: VENOUS BLOOD SPECIMEN Ordering Facility: [facility] Address: [address] [place] [address] Result Comment: Carb oxyhemoglobin Reference Range for Smokers: 2.0-8.0% Performed By: #### 2 4344-4 #### [facility] CLIA [id number] [address] [place] [address] [place] Chloride [Moles/Vol] 106 mmol/L High 97-105 [facility] Comment on above: Order Comment: Speci men Type: VENOUS BLOOD SPECIMEN Ordering Facility: [facility] Address: [address] [place] [address] Performed By: #### 2 4344-4 #### [facility] CLIA [id number] [address] [place] [address] [place] CO2 (BldV) [Partial pressure] 35 mm[Hg] Low 42-55 [facility] Comment on above: Order Comment: Speci men Type: VENOUS BLOOD SPECIMEN Ordering Facility: [facility] Address: [address] [place] [address] Performed By: #### 2 4344-4 #### [facility] CLIA [id number] [address] [place] [address] [place] CO2 adjusted to patient's actual temperature (BldV) [Partial pressure] Normal [facility] Comment on above: Order Comment: Speci men Type: VENOUS BLOOD SPECIMEN Ordering Facility: [facility] Address: [address] [place] [address] Performed By: #### 2 4344-4 #### [facility] CLIA [id number] [address] [place] [address] [place] Glucose [Mass/Vol] 460 mg/dL High 60-105 [facility] Comment on above: Order Comment: Speci men Type: VENOUS BLOOD SPECIMEN Ordering Facility: [facility] Address: [address] [place] [address] Performed By: #### 2 4344-4 #### [facility] CLIA [id number] [address] [place] [address] [place] HCO3 (Bld) [Moles/Vol] 19 mmol/L Low 24-28 [facility] Comment on above: Order Comment: Speci men Type: VENOUS BLOOD SPECIMEN Ordering Facility: [facility] Address: [address] [place] [address] Performed By: #### 2 4344-4 #### [facility] CLIA [id number] [address] [place] [address] [place] Hematocrit (Bld) [Volume fraction] 29.7 % Low 36.0-46.0 [facility] Comment on above: Order Comment: Speci men Type: VENOUS BLOOD SPECIMEN Ordering Facility: [facility] Address: [address] [place] [address] Performed By: #### 2 4344-4 #### [facility] CLIA [id number] [address] [place] [address] [place] Hemoglobin (Bld) [Mass/Vol] 9.6 g/dL Low 11.5-15.5 [facility] Comment on above: Order Comment: Speci men Type: VENOUS BLOOD SPECIMEN Ordering Facility: [facility] Address: [address] [place] [address] Performed By: #### 2 4344-4 #### [facility] CLIA [id number] [address] [place] [address] [place] Lactate [Moles/Vol] 1.1 mmol/L Normal 0.5-2.2 [facility] Comment on above: Order Comment: Speci men Type: VENOUS BLOOD SPECIMEN Ordering Facility: [facility] Address: [address] [place] [address] Performed By: #### 2 4344-4 #### [facility] CLIA [id number] [address] [place] [address] [place] Methemoglobin (Bld) [Mass fraction] 1.1 % Normal 0.0-1.5 [facility] Comment on above: Order Comment: Speci men Type: VENOUS BLOOD SPECIMEN Ordering Facility: [facility] Address: [address] [place] [address] Performed By: #### 2 4344-4 #### [facility] CLIA [id number] [address] [place] [address] O2 THERAPY RA=Room Air Normal [facility] Comment on above: Order Comment: Speci men Type: VENOUS BLOOD SPECIMEN Ordering Facility: [facility] Address: [address] [place] [address] Performed By: #### 2 4344-4 #### [facility] CLIA [id number] [address] [place] [address] [place] [facility] [place] Oxygen (BldV) [Partial pressure] 118 mm[Hg] High 35-45 [facility] Comment on above: Order Comment: Speci men Type: VENOUS BLOOD SPECIMEN Ordering Facility: [facility] Address: [address] [place] [address] Performed By: #### 2 4344-4 #### [facility] CLIA [id number] [address] [place] [address] [place] Oxygen adjusted to patient's actual temperature (BldV) [Partial pressure] Normal [facility] Comment on above: Order Comment: Speci men Type: VENOUS BLOOD SPECIMEN Ordering Facility: [facility] Address: [address] [place] [address] Performed By: #### 2 4344-4 #### [facility] CLIA [id number] [place] [address] [place] Oxygen saturation in Venous blood 99 % High 60-85 [facility] Comment on above: Order Comment: Speci men Type: VENOUS BLOOD SPECIMEN Ordering Facility: [facility] Address: [address] [place] [address] Performed By: #### 2 4344-4 #### [facility] CLIA [id number] [address] [place] [address] [place] Oxyhemoglobin (BldV) [Mass fraction] 94 % High 60-85 [facility] Comment on above: Order Comment: Speci men Type: VENOUS BLOOD SPECIMEN Ordering Facility: [facility] Address: [address] [place] [address] Performed By: #### 2 4344-4 #### [facility] CLIA [id number] [address] [place] [address] [place] pH (BldV) 7.37 [pH] Normal 7.32-7.42 [facility] Comment on above: Order Comment: Speci men Type: VENOUS BLOOD SPECIMEN Ordering Facility: [facility] Address: [address] [place] [address] Performed By: #### 2 4344-4 #### [facility] CLIA [id number] [address] [place] [address] [place] pH adjusted to patient's actual temperature (BldV) Normal [facility] Comment on above: Order Comment: Speci men Type: VENOUS BLOOD SPECIMEN Ordering Facility: [facility] Address: [address] [place] [address] Performed By: #### 2 4344-4 #### [facility] CLIA [id number] [address] [place] [address] [place] Potassium [Moles/Vol] 5.3 mmol/L High 3.5-5.0 [facility] Comment on above: Order Comment: Speci men Type: VENOUS BLOOD SPECIMEN Ordering Facility: [facility] Address: [address] [place] [address] Performed By: #### 2 4344-4 #### [facility] CLIA [id number] [address] [place] [address] [place] Sodium [Moles/Vol] 133 mmol/L Low 136-144 [facility] Comment on above: Order Comment: Speci men Type: VENOUS BLOOD SPECIMEN Ordering Facility: [facility] Address: [address] [place] [address] Performed By: #### 2 4344-4 #### [facility] CLIA [id number] [place] HISTORY PHYSICALon HISTORY PHYSICAL HNO ID: [id number] Author: ANTHONY BARROW MD Service: Hospital Medicine Author Type: Physician Type: H&P Filed: 08/31/2023 13:12 Note Text: HISTORY AND PHYSICAL EXAMINATION SERVICE DATE: 08/31/2023 SERVICE TIME: 11:03 AM PRIMARY CARE PHYSICIAN: Agusto Olmstead Subjective CHIEF COMPLAINT: HPI: 63-year-old female [...] left foot ulcer that patient was seen lumber stacker driver as outpatient for and advised her to [...] nts 08/31/23 1115 activity - mobilize patient (dc,az) VTE Prophylaxis: VTE prophylaxis appropriate SIGNATURE: Anthony Barrow MD PATIENT NAME: Aislinn Wheeler DATE: August 31, 2023 TIME: 11:03 AM PAGER/CONTACT #: Normal [facility] KETONES/ACETONE/BHBon 2023 Beta hydroxybutyrate [Moles/Vol] 0.50 mmol/L High <0.28 [facility] Comment on above: Order Comment: Speci men Type: BLOOD SPECIMEN Ordering Facility: [facility] Address: [address] [place] [address] Performed By: #### B HB, 21926-3 #### [facility] CLIA [id number] [address] [place] [address] [place] POTASSIUM BLDon 08-31-2023 Potassium [Moles/Vol] 4.6 mmol/L Normal 3.7-5.1 [facility] Comment on above: Order Comment: Speci men Type: BLOOD SPECIMEN Ordering Facility: [facility] Address: [address] [place] [address] Performed By: #### B HB, 93670-4 #### [facility] CLIA [id number] [address] [place] [address] [place] SEPSIS LACTATEon 08-31-2023 Lactate [Moles/Vol] 1.2 mmol/L Normal 0.0-2.0 [facility] Comment on above: Order Comment: Speci men Type: BLOOD SPECIMEN Ordering Facility: [facility] Address: [address] [place] [address] Performed By: #### B HB, #### [facility] CLIA [id number] [address] [place] [address] [place] Urinalysis complete panel (U )on 08-31-2023 Bacteria LM.HPF (Urine sed) [#/Area] Many Abnormal None Seen [facility] Comment on above: Order Comment: Speci men Type: BLOOD SPECIMEN Ordering Facility: [facility] Address: [address] [place] [address] Performed By: #### B HB, #### [facility] CLIA [id number] [address] [place] [address] STATES [facility] Bilirubin Ql (U) Negative Normal Negative [facility] Comment on above: Order Comment: Speci men Type: BLOOD SPECIMEN Ordering Facility: [facility] Address: [address] [place] [address] Performed By: #### B HB, #### [facility] CLIA [id number] [address] [place] [address] [place] Clarity (Unsp spec) Turbid Abnormal Clear [facility] Comment on above: Order Comment: Speci men Type: BLOOD SPECIMEN Ordering Facility: [facility] Address: [address] [place] [address] Performed By: #### B HB, #### [facility] CLIA [id number] [address] [place] [address] [place] Color (U) Light Yellow Normal Yellow [facility] Comment on above: Order Comment: Speci men Type: BLOOD SPECIMEN Ordering Facility: [facility] Address: [address] [place] [address] Performed By: #### B HB, #### [facility] CLIA [id number] [address] [place] [address] [place] Glucose Test strip (U) [Mass/Vol] 4+ Abnormal Trace, Negative [facility] Comment on above: Order Comment: Speci men Type: BLOOD SPECIMEN Ordering Facility: [facility] Address: [address] [place] [address] Performed By: #### B HB, #### [facility] CLIA [id number] [place] [address] [place] Hemoglobin Ql (U) Trace Normal Negative, Trace [facility] Comment on above: Order Comment: Speci men Type: BLOOD SPECIMEN Ordering Facility: [facility] Address: [address] [place] [address] Performed By: #### B HB, #### [facility] CLIA [id number] [address] [place] [address] [place] Ketones Ql (U) Negative Normal Negative, Trace [facility] Comment on above: Order Comment: Speci men Type: BLOOD SPECIMEN Ordering Facility: [facility] Address: [address] [place] [address] Performed By: #### B HB, #### [facility] CLIA [id number] [address] [place] [address] [place] Leukocyte esterase Test strip Ql (U) 500 Yuan/uL Abnormal Negative, 25 Yuan/uL [facility] Comment on above: Order Comment: Speci men Type: BLOOD SPECIMEN Ordering Facility: [facility] Address: [address] [place] [address] Performed By: #### B HB, #### [facility] CLIA [id number] [address] [place] [address] [place] Nitrite Ql (U) Negative Normal Negative [facility] Comment on above: Order Comment: Speci men Type: BLOOD SPECIMEN Ordering Facility: [facility] Address: [address] [place] [address] Performed By: #### B HB, #### [facility] CLIA [id number] [address] [place] [address] [place] pH (U) 6.0 [pH] Normal 5.0-8.0 [facility] Comment on above: Order Comment: Speci men Type: BLOOD SPECIMEN [facility] Facility: [facility] [facility] Address: [address] [place] [address] Performed By: #### B HB, #### [facility] CLIA [id number] [address] [place] [address] STATES [facility] Protein (U) [Mass/Vol] 1+ Abnormal Trace, Negative [facility] Comment on above: Order Comment: Speci men Type: BLOOD SPECIMEN [facility] Address: [address] [place] [address] Performed By: #### B HB, #### [facility] CLIA [id number] [address] [place] [address] RBC LM.HPF (Urine sed) [#/Area] 3-5 /HPF Abnormal 0-3 /HPF [facility] Comment on above: Order Comment: Speci men Type: BLOOD SPECIMEN [facility] Address: [address] [place] [address] Performed By: #### B HB, #### [facility] CLIA [id number] [address] [place] [address] [place] Specific gravity (U) [Rel density] 1.017 Normal 1.005-1.030 [facility] Comment on above: Order Comment: Speci men Type: BLOOD SPECIMEN [facility] Address: [address] [place] [address] Performed By: #### B HB, #### [facility] CLIA [id number] [address] [place] [address] [place] Urobilinogen Ql (U) Negative Normal Negative [facility] Comment on above: Order Comment: Speci men Type: BLOOD SPECIMEN [facility] Address: [address] [place] [address] Performed By: #### B HB, #### [facility] CLIA [id number] [address] [place] [address] [place] WBC LM.HPF (Urine sed) [#/Area] /[HPF] Abnormal 0-5 /HPF [facility] Comment on above: Order Comment: Speci men Type: BLOOD SPECIMEN [facility]: [facility] Address: [place] [address] Performed By: #### B , 54887-8 #### [facility] CLIA [id number] [address] [place] [address] [place] XR CHEST 1V [...] Fatigue and malaise, Fatigue and malaise (accession [id number]), Osteomyelitis (accession [id number]) MQ: XC1_5 Comparison: CT 01/17/2021, radiograph 01/17/2021 [...] performed for increased sensitivity, as clinically warranted. Automated Access Systems Technician: GUILLE Transcribe Date/Time: Aug 31 2023 4:46A Dictated by : TAURUS MORTON MD This examination was interpreted and the report reviewed and electronically signed by: TAURUS MORTON MD on Aug 31 2023 4:51AM EST [id number] Normal [facility] XR FOOT 3V AP/LAT/OBL LTon 0 [...] Fatigue and malaise, Fatigue and malaise (accession [id number]), Osteomyelitis (accession [id number]) MQ: XC1_5 Comparison: CT 01/17/2021, radiograph 01/17/2021 [...] performed for increased sensitivity, as clinically warranted. Automated Access Systems Technician: GUILLE Transcribe Date/Time: Aug 31 2023 4:46A Dictated by : TAURUS MORTON MD This examination was interpreted and the report reviewed and electronically signed by: TAURUS MORTON MD on Aug 31 2023 4:51AM EST [id number] Normal [facility] Benzodiazepines Screen Ql (U )on 08-09-2023 Benzodiazepines Ql (U) Negative Normal NEG [facility] Comment on above: Result Comment: Lenny odiazepines screening cut off value = 200 ng/mL This report is intended for use in clinical monitoring or management of patients. Performed By: #### 1 4316-4 #### [facility] ([id number]) [address] [place] [address] CCL GENERIC ORDERon 08-09-20 TEST NAME UQNTPP URINE PAIN PA VEGA QUANT Normal [facility] Comment on above: Result Comment: Wesley ected on 08/09 AT 1743: Previously reported as UQNTPP Performed By: #### C GO #### [facility] ([id number]) [address] [place] [address] TEST RESULT See Below Normal [facility] Comment on above: Result Comment: NOTE TEST RESULT FLAG UNIT REF.RANGE ----- Specimen Validity Quality See below Specimen quality results within acceptable limits Specimen Validity Creatinine 31.8 mg/dL 20.0-300.0 Specimen Validity PH 5.4 4.5-8.0 Specimen Validity Specific [place] 1.006 1.003-1.035 Specimen Validity Oxidants <38 mg/L [...] carboxylic acid (THCA) is a metabolite of nldkl-4-ufuizladaosdsgnggrkw which is the main active component of marijuana. Fentanyl, Urine <6 ng/mL <6 Buprenorphine, Ur <20 ng/mL <20 Methadone Urine <16 ng/mL <16 Methadone metabolite Urine <6 ng/mL <6 EDDP is a metabolite of methadone. Note See Below This test is for medical use only. This test was developed and its performance characteristics determined by [facility] [place] ([facility]). It has not been cleared or approved by the FDA. [facility] is regulated under CLIA as qualified to perform high-complexity testing. This test is used for clinical purposes. It should not be regarded as investigational or for research. URINE PAIN PANEL QUANT Test Performed By: [facility] [address] [place] [address] [employer] Specialist: Oswald Munguia III, M.D. CLIA #[id number] Performed By: #### C GO #### [facility] ([id number]) [address] [place] [address], [place] [address] Operative Reporton Operative Report [id number]#1.00T IFF Normal [facility] Pathology Noteon 08-07-2023 Pathology Note [id number]#1.00 TIFF Normal [facility] ED Note-Physicianon 06-29-20 ED Note-Physician [id number]#1.00T IFF Normal [facility] Patient Letter FTMCon 2022 Patient Letter [facility] (Inserted Image. Grecia ble to display) June 28, 2023 AISLINN WHEELER [address] [place] [id number] : 1960 Dear Aislinn, You missed your [...] [facility] [address], [place] [address] Pt called and RS'd. Normal [facility] Basic metabolic 2000 panelon 06-23-2023 Anion gap [Moles/Vol] 9 mmol/L Normal 05-08 [facility] Comment on above: Order Comment: Speci men Type: BLOOD SPECIMEN [facility] Address: [address] [place] [address] Performed By: #### B HB, 12751-7 #### [facility] CLIA [id number] [address] [place] [address] [place] Calcium [Mass/Vol] 7.3 mg/dL Low 8.5-10.2 [facility] Comment on above: Order Comment: Speci men Type: BLOOD SPECIMEN [facility] Address: [address] [place] [address] Performed By: #### B HB, 72357-3 #### [facility] CLIA [id number] [address] [place] [address] [place] Chloride [Moles/Vol] 110 mmol/L High 97-105 [facility] Comment on above: Order Comment: Speci men Type: BLOOD SPECIMEN [facility] Address: [address] [place] [address] Performed By: #### B HB, #### [facility] CLIA [id number] [address] [place] [address] [place] CO2 [Moles/Vol] 19 mmol/L Low 22-30 [facility] Comment on above: Order Comment: Speci men Type: BLOOD SPECIMEN [facility] Address: [address] [place] [address] Performed By: #### B HB, 18724-8 #### [facility] CLIA [id number] [address] [place] [address] [place] Creatinine [Mass/Vol] 1.39 mg/dL High 0.58-0.96 [facility] Comment on above: Order Comment: Speci men Type: BLOOD SPECIMEN [facility] Address: [address] [place] [address] Performed By: #### B HB, #### [facility] CLIA [id number] [address] [place] [address] [place] Creatinine and Glomerular filtration rate.predicted panel (S/P/Bld) 42 mL/min/1.73m??? Low >=60 [facility] Comment on above: Order Comment: Speci men Type: BLOOD SPECIMEN [facility] Address: [address] [place] [address] Result Comment: Donna mated Glomerular Filtration Rate [...] accurately reflect actual GFR. Performed By: #### B HB, 24936-7 #### [facility] CLIA [id number] [address] [place] [address] [place] Glucose [Mass/Vol] 157 mg/dL High 74-99 [facility] Comment on above: Order Comment: [place] Type: BLOOD SPECIMEN [facility] Address: [address] [facility] [place] [address] Result Comment: The [place] Diabetes Association (ADA) provides guidance for cutoff [...] Standards of Medical Care in Diabetes 2016, [place] Diabetes Association. Diabetes Care. 2016.39(Suppl 1). Performed By: #### B HB, 62887-9 #### [facility] CLIA [id number] [address] [place] [address] [place] Potassium [Moles/Vol] 5.1 mmol/L Normal 3.7-5.1 [facility] Comment on above: Order Comment: [place] Type: BLOOD SPECIMEN [facility] Address: [place] [address] Performed By: #### B HB, 18231-9 #### [facility] CLIA [id number] [address] [place] [address] [place] Sodium [Moles/Vol] 138 mmol/L Normal 136-144 [facility] Comment on above: Order Comment: Speci men Type: BLOOD SPECIMEN [facility] Address: [address] [place] [address] Performed By: #### B HB, 33479-4 #### [facility] CLIA [id number] [address] [place] [address] [place] Urea nitrogen [Mass/Vol] 21 mg/dL Normal 7-21 [facility] Comment on above: Order Comment: Speci men Type: BLOOD SPECIMEN [facility] Address: [address] [place] [address] Performed By: #### B HB, #### [facility] CLIA [id number] [address] [place] [address] [place] CBC panel Auto (Bld)on 06-23 Erythrocyte distribution width (RBC) [Ratio] 14.4 % Normal 11.5-15.0 [facility] Comment on above: Order Comment: Speci men Type: BLOOD SPECIMEN [facility] Address: [address] [place] [address] Performed By: #### B HB, #### [facility] CLIA [id number] [address] [place] [address] [place] Hematocrit (Bld) [Volume fraction] 28.5 % Low 36.0-46.0 [facility] Comment on above: Order Comment: Speci men Type: BLOOD SPECIMEN [facility] Address: [address] [place] [address] Performed By: #### B HB, 98278-8 #### [facility] CLIA [id number] [address] [place] [address] [place] Hemoglobin (Bld) [Mass/Vol] 9.0 g/dL Low 11.5-15.5 [facility] Comment on above: Order Comment: Speci men Type: BLOOD SPECIMEN [facility] Address: [address] [place] [address] Performed By: #### B HB, 03205-4 #### [facility] CLIA [id number] [place] [address] [place] MCH (RBC) [Entitic mass] 25.2 pg Low 26.0-34.0 [facility] Comment on above: Order Comment: Speci men Type: BLOOD SPECIMEN [facility] Address: [address] [place] [address] Performed By: #### B HB, #### [facility] CLIA [id number] [address] [place] [address] [place] MCHC (RBC) [Mass/Vol] 31.6 g/dL Normal 30.5-36.0 [facility] Comment on above: Order Comment: Speci men Type: BLOOD SPECIMEN [facility] Address: [address] [place] [address] Performed By: #### B HB, #### [facility] CLIA [id number] [address] [place] [address] [place] MCV (RBC) [Entitic vol] 79.8 fL Low 80.0-100.0 [facility] Comment on above: Order Comment: Speci men Type: BLOOD SPECIMEN [facility] Address: [address] [place] [address] Performed By: #### B HB, #### [facility] CLIA [id number] [address] [place] [address] [place] Nucleated RBC (Bld) [#/Vol] 10*3/uL Normal <0.01 [facility] Comment on above: Order Comment: Speci men Type: BLOOD SPECIMEN [facility] Address: [address] [place] [address] Performed By: #### B HB, #### [facility] CLIA [id number] [address] [place] [address] [place] Platelet mean volume (Bld) [Entitic vol] 10.6 fL Normal 9.0-12.7 [facility] Comment on above: Order Comment: Speci men Type: BLOOD SPECIMEN [facility] Address: [address] [place] [address] Performed By: #### B HB, 17454-7 #### [facility] CLIA [id number] [address] [place] [address] [place] Platelets (Bld) [#/Vol] 251 10*3/uL Normal 150-400 [facility] Comment on above: Order Comment: Speci men Type: BLOOD SPECIMEN [facility] Address: [address] [place] [address] Performed By: #### B HB, 03125-2 #### [facility] CLIA [id number] [address] [place] [address] [place] RBC (Bld) [#/Vol] 3.57 10*6/uL Low 3.90-5.20 [facility] Comment on above: Order Comment: Speci men Type: BLOOD SPECIMEN [facility] Address: [address] [place] [address] Performed By: #### B HB, 27569-7 #### [facility] CLIA [id number] [address] [place] [address] [place] WBC (Bld) [#/Vol] 7.47 10*3/uL Normal 3.70-11.00 [facility] Comment on above: Order Comment: Speci men Type: BLOOD SPECIMEN [facility] Address: [address] [place] [address] Performed By: #### B HB, 18549-7 #### [facility] CLIA [id number] [address] [place] [address] OF [place] CNDSon 06-23-2023 CNDS HNO ID: [id number] Author: Annie Martinez APRN.COLLECTION CARD CLERK Service: Urology Author Type: Nurse Practitioner Type: [...] this patient's care. Taurus Ballard MD [facility] [place] [phone] or [phone] [facility] C O N F I D E N T I A L I N F O R M A T I O N ------ ST[facility]ARD [facility] DOCUMENT DISCHARGE SUMMARY Patient Name: Aislinn Wheeler [...] Your Medications These medications were sent to [facility] [address] [place] [address] Hours: Monday-Monday: 7am-7pm, Sat: 9am-1pm acetaminophen 325 mg tablet docusate sodium 100 mg capsule Future Appointments: No future appointments. Electronically SIGNED by Licensed Independent Practitioner: Annie Martinez APRN.[facility] Kam[place]ah 06-23-2023 NIECY Telephone ([facility]) LIAMAISLINN ([id number]) 1960 F Date Time Provider Department 06/23/23 [facility] During your visit today, we recorded the following information about you: Heidy Garcia RN 06/23/2023 9:05 AM Signed Patient had left robotic partial nephrectomy by Dr. Ballard on 06/22/2023 Will call for surgical follow up once discharged Heidy Garcia RN 06/26/2023 10:45 AM Signed Patient phone number non functioning. Active in [employer], will send message inquiring on how she's feeling post-operatively. Vonnie Wilder RN 06/27/2023 10:15 AM Signed Spoke with grand daughter, Lola, as this office is unable to reach patient for post op call. Lola reports, that patient's phone is turned off, and she does not know how to use HeTexted. Lola reports that patient went to [facility] due to excruciating pain -was given [...] Encounter Status:Closed by HEIDY GARCIA on 06/23/23 [facility] NURSING PROGon 06-23-2023 NURSING PROG HNO ID: [id number] Author: Sweta Cordova RN Service: ? Author [...] Annie Martinez, awaiting PRN order of hydralazine. [facility] ANES POSTPROC EVALon 023 ANES POSTPROC EVAL HNO ID: [id number] Author: Rikki Jhaveri MD Service: Anesthesiology Author Type: Anesthesiologist Type: Anesthesia Postprocedure Evaluation Filed: 06/22/2023 2:18 PM Note Text: POST ANESTHESIA EVALUATION NOTE : 1960 Procedure Summary Date: 06/22/23 Room / Location: [place] [address]A / OR Anesthesia Start: 1107 Anesthesia Stop: [...] June 22, 2023 TIME: 2:18 PM CSN: [id number] [facility] ANES PRE-OPon 06-22-2023 ANES PRE-OP HNO ID: [id number] Author: Rikki Jhaveri MD Service: Anesthesiology Author [...] June 22, 2023 TIME: 9:54 AM CSN: [id number] Normal [facility] Basic metabolic 2000 panelon 06-22-2023 Anion gap [Moles/Vol] 7 mmol/L Low 9-18 [facility] Comment on above: Order Comment: Speci men Type: BLOOD SPECIMEN [facility] Address: [address] [place] [address] Performed By: #### 2 4321-2 #### [facility] CLIA [id number] [address] [place] [address] [place] Calcium [Mass/Vol] 7.5 mg/dL Low 8.5-10.2 [facility] Comment on above: Order Comment: Speci men Type: BLOOD SPECIMEN [facility] Address: [address] [place] [address] Performed By: #### 2 4321-2 #### [facility] CLIA [id number] [address] [place] [address] [place] Chloride [Moles/Vol] 108 mmol/L High 97-105 [facility] Comment on above: Order Comment: Speci men Type: BLOOD SPECIMEN [facility] Address: [address] [place] [address] Performed By: #### 2 4321-2 #### [facility] CLIA [id number] [address] [place] [address] [place] CO2 [Moles/Vol] 19 mmol/L Low 22-30 [facility] Comment on above: Order Comment: Speci men Type: BLOOD SPECIMEN [facility] Address: [address] [place] [address] Performed By: #### 2 4321-2 #### [facility] CLIA [id number] [address] [place] [address] [place] Creatinine [Mass/Vol] 1.57 mg/dL High 0.58-0.96 [facility] Comment on above: Order Comment: Speci men Type: BLOOD SPECIMEN [facility] Address: [address] [place] [address] Performed By: #### 2 4321-2 #### [facility] CLIA [id number] [address] [place] [address] [place] Creatinine and Glomerular filtration rate.predicted panel (S/P/Bld) 36 mL/min/1.73m??? Low >=60 [facility] Comment on above: Order Comment: [place] Type: BLOOD SPECIMEN [facility] Address: [address] [place] [address] Result Comment: Donna mated Glomerular Filtration Rate [...] GFR. Performed By: #### 2 4321-2 #### [facility] CLIA [id number] [place] [address] [place] Glucose [Mass/Vol] 275 mg/dL High 74-99 [facility] Comment on above: Order Comment: [place] Type: BLOOD SPECIMEN [facility] Address: [address] [place] [address] Result Comment: The [place] Diabetes Association (ADA) provides guidance for cutoff [...] Standards of Medical Care in Diabetes 2016, [place] Diabetes Association. Diabetes Care. 2016.39(Suppl 1). Performed By: #### 2 4321-2 #### [facility] CLIA [id number] [place] [address] [place] Potassium [Moles/Vol] 5.3 mmol/L High 3.7-5.1 [facility] Comment on above: Order Comment: [place] Type: BLOOD SPECIMEN [facility] Address: [address] [place] [address] Performed By: #### 2 4321-2 #### [facility] CLIA [id number] [address] [place] [address] [place] Sodium [Moles/Vol] 134 mmol/L Low 136-144 [facility] Comment on above: Order Comment: Speci men Type: BLOOD SPECIMEN [facility] Address: [address] [place] [address] Performed By: #### 2 4321-2 #### [facility] CLIA [id number] [address] [place] [address] [place] Urea nitrogen [Mass/Vol] 26 mg/dL High 7-21 [facility] Comment on above: Order Comment: Speci men Type: BLOOD SPECIMEN [facility] Address: [address] [place] [address] Performed By: #### 2 4321-2 #### [facility] CLIA [id number] [address] [place] [address] [place] CBC panel Auto (Bld)on 06-22 Erythrocyte distribution width (RBC) [Ratio] 14.3 % Normal 11.5-15.0 [facility] Comment on above: Order Comment: Speci men Type: BLOOD SPECIMEN [facility] Address: [address] [place] [address] Performed By: #### 5 8410-2 #### [facility] CLIA [id number] [address] [place] [address] [place] Hematocrit (Bld) [Volume fraction] 27.8 % Low 36.0-46.0 [facility] Comment on above: Order Comment: Speci men Type: BLOOD SPECIMEN [facility] Address: [address] [place] [address] Performed By: #### 5 8410-2 #### [facility] CLIA [id number] [address] [place] [address] [place] Hemoglobin (Bld) [Mass/Vol] 8.9 g/dL Low 11.5-15.5 [facility] Comment on above: Order Comment: Speci men Type: BLOOD SPECIMEN [facility] Address: [address] [place] [address] Performed By: #### 5 8410-2 #### [facility] CLIA [id number] [address] [place] [address] [place] MCH (RBC) [Entitic mass] 25.3 pg Low 26.0-34.0 [facility] Comment on above: Order Comment: Speci men Type: BLOOD SPECIMEN [facility] Address: [address] [place] [address] Performed By: #### 5 8410-2 #### [facility] CLIA [id number] [address] [place] [address] [place] MCHC (RBC) [Mass/Vol] 32.0 g/dL Normal 30.5-36.0 [facility] Comment on above: Order Comment: Speci men Type: BLOOD SPECIMEN [facility] Address: [address] [place] [address] Performed By: #### 5 8410-2 #### [facility] CLIA [id number] [address] [place] [address] [place] MCV (RBC) [Entitic vol] 79.0 fL Low 80.0-100.0 [facility] Comment on above: Order Comment: Speci men Type: BLOOD SPECIMEN [facility] Address: [address] [place] [address] Performed By: #### 5 8410-2 #### [facility] CLIA [id number] [address] [place] [address] [place] Nucleated RBC (Bld) [#/Vol] 10*3/uL Normal <0.01 [facility] Comment on above: Order Comment: Speci men Type: BLOOD SPECIMEN [facility] Address: [address] [place] [address] Performed By: #### 5 8410-2 #### [facility] CLIA [id number] [address] [place] [address] [place] Platelet mean volume (Bld) [Entitic vol] 10.8 fL Normal 9.0-12.7 [facility] Comment on above: Order Comment: Speci men Type: BLOOD SPECIMEN [facility] Address: [address] [place] [address] Performed By: #### 5 8410-2 #### [facility] CLIA [id number] [address] [place] [address] [place] Platelets (Bld) [#/Vol] 230 10*3/uL Normal 150-400 [facility] Comment on above: Order Comment: Speci men Type: BLOOD SPECIMEN [facility] Address: [address] [place] [address] Performed By: #### 5 8410-2 #### [facility] CLIA [id number] [address] [place] [address] [place] RBC (Bld) [#/Vol] 3.52 10*6/uL Low 3.90-5.20 [facility] Comment on above: Order Comment: Speci men Type: BLOOD SPECIMEN [facility] Address: [address] [place] [address] Performed By: #### 5 8410-2 #### [facility] CLIA [id number] [address] [place] [address] [place] WBC (Bld) [#/Vol] 6.04 10*3/uL Normal 3.70-11.00 [facility] Comment on above: Order Comment: Speci men Type: BLOOD SPECIMEN Ordering Facility: [facility] Address: [address] [place] [address] Performed By: #### 5 8410-2 #### [facility] CLIA [id number] [address] [place] [address] OF [place] NURSING PROGon 06-22-2023 NURSING PROG HNO ID: [id number] Author: Afia Lanier RN Service: Nursing Author Type: Registered Nurse Type: Nursing Progress Note Filed: 06/22/2023 5:56 PM Note Text: Transfer Note: PATIENT NAME: Aislinn Wheeler Patient Location: [place] [address]/[id number]-40 Room: [place] [address] Patient transferred into room/unit pk308 in stable condition. Actions taken: No futher actions taken at this time. Will continue to monitor and check with patient. [facility] NURSING PROG HNO ID: [id number] Author: Linda Nicholson RN Service: Nursing Author Type: Registered Nurse Type: Nursing Progress Note Filed: 06/22/2023 12:20 PM Note Text: pre-incision juan area noted to have redness and inflamed, prior to prepping and putting chaves in. [facility] NURSING PROG HNO ID: [id number] Author: Elva Joy RN Service: Nursing Author [...] (RECOMMENDATION): None Electronically Signed By: Elva Joy [facility] OPERATIVE NOon 06-22-2023 OPERATIVE NO HNO ID: [id number] Author: Taurus Ballard MD Service: Urology Author Type: Physician Type: Operative Report Filed: 06/22/2023 1:48 PM Note Text: OPERATIVE/PROCEDURE REPORT LOG ID: [id number] Surgery/Procedure Date: 06/22/2023 Incision/Procedure Start Time: 11:49 AM Incision Close/Procedure End Time: 1:55 PM Surgeon(s)/Proceduralis t(s) and Crm Business Analyst(s): Surgeon(s) and Role: * Taurus Ballard MD - Primary * Jeet De La Fuente MD - Resident - Assisting Physician Crm Business Analyst: Camden Rios PA-C; Alicia Harmon PA-C Procedure(s): 1) [...] None Drains: 10 flat JUAN drain, 16 Welsh Chaves catheter Complications: None Accidental Punctures/Lacerations: None I/primary surgeon/proceduralist performed the procedure with assistance. SIGNATURE: Taurus Ballard MD PATIENT NAME: Aislinn Wheeler DATE: June 22, 2023 TIME: 1:42 PM PAGER/CONTACT #: [facility] SURGICAL PATHOLOGYon 023 CASE REPORT [facility] Comment on above: Order Comment: [place] Type: BLOOD SPECIMEN Ordering Facility: [facility] Address: [address] [place] [address] Result Comment: Surg ica Pathology Report Case: [id number] Authorizing Provider: Taurus Ballard MD Collected: 06/22/2023 01:38 PM Ordering Location: [facility] Received: 06/22/2023 03:16 PM Operating Room Pathologist: Barron Cheema MD Specimen: KIDNEY PARTIAL NEPHRECTOMY LEFT, left renal neoplasm Performed By: #### B , 23469-3 #### [facility] CLIA [id number] [address] [place] [address] [place] CLINICAL HISTORY [facility] Comment on above: Order Comment: [place] Type: BLOOD SPECIMEN Ordering Facility: [facility] Address: [address] [place] [address] Result Comment: 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 - 7.2 cm gross greatest dimension of tissue specimen (defer to clinical/imaging for overall lesion size). Performed By: #### [place], [address]-0 #### [facility] CLIA [id number] FINAL PERFORMING LAB [facility] Comment on above: Order Comment: [place] Type: BLOOD SPECIMEN Ordering Facility: [facility] Address: [address] [place] [address] Result Comment: Diag nostic interpretation performed at [facility], [address] [address] CLIA# [id number] [employer] Specialist: Oswald Munguia M.D. Performed By: #### B HB, #### [facility] CLIA [id number] [address] [place] [address] OF [facility] GROSS DESCRIPTION Normal [facility] Comment on above: Order Comment: Speci men Type: BLOOD SPECIMEN Ordering Facility: [facility] Address: [place] [address] Result Comment: Emre MCGRATH PARTIAL NEPHRECTOMY LEFT Received in formalin designated left renal neoplasm is a segment of chilel-purple membranous tissue which weighs 39 g and measures 7.2 x 5.5 x 3.5 cm. There is cautery present at the margin which is inked orange. The surfaces are smooth with no masses or papillations grossly appreciated. Sectioning does not reveal any masses. [employer] sections are submitted in 5 cassettes. BF June 23, 2023 9:00 AM Gross examination performed at [facility], [address] [place] [address] CLIA # [id number] Performed By: #### Kimberlyn , 48686-1 #### [facility] CLIA [id number] [address] [place] [address] [place] CNPNon 06-15-2023 [facility] Telephone [facility] AISLINN WHEELER ([id number]) 1960 F Date Time Provider Department 06/15/23 VONNIE WILDER [facility] During your visit today, we recorded [...] Encounter Status:Closed by VONNIE WILDER on 06/15/23 [facility] [place] 06-12-2023 CNPN Telephone ([facility]) AISLINN WHEELER ([id number]) 1960 F Date Time Provider Department 06/12/23 LILIANA VELASCO [facility] During your visit today, we recorded the following information about you: Liliana Velasco RN 06/12/2023 8:56 AM Signed Received call from RN at Dr. Sara Augustine ([phone]) office (endocrinology) regarding clearance for upcoming surgery [...] Sara Dai CNP received and scanned into [employer] to view. Allergies As of Date: 06/12/2023 [...] Encounter Status:Closed by LILIANA VELASCO on 06/12/23 [facility] C Urineon 06-10-2023 Bacteria identified Cx Nom [...] Locations R1: This test was performed at: [facility], [address] [place] [address], [address] , , [facility] Comment on above: Performed By: #### 2 [id number] #### [facility] [address] [place] [address] [facility]-09-[address] [facility] AISLINN WHEELER ([id number]) 1960 Date Time Provider Department 06/09/23 TAURUS BALLARD During your visit today, we recorded the following information about you: Derik Fernandez 06/09/2023 3:31 PM Signed Lvm on patient's phone 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 for clearance for her surgery on 06/22 Left message with office of Sara Augustine ([phone]) where patient's appointment was scheduled asking for [...] Encounter Status:Closed by DERIK FERNANDEZ on 06/09/23 [facility] Glucose - FINGER STICKon Glucose [Mass/Vol] 436 mg/dL [employer] Other [place] 06-07-2023 NIECY Telephone (MERY) AISLINN WHEELER ([id number]) 1960 F Date Time Provider Department 06/07/23 AARON AGUILAR During your visit today, we recorded the following information about you: Aaron Aguilar APRN.CNP 06/07/2023 7:22 AM Signed Patient [...] copy of labs to PCP Thank you Aaron Aguilar APRN.CNP PACC Aaron Aguilar APRN.CNP 06/07/2023 8:26 AM Signed Per message from Dr. Ballard... She should see endocrinology preop to improve her blood sugar control I placed a consult to endocrinology. Resource nurses-- Can you please contact patient and advise that due to uncontrolled DM, needs to see endocrinology pre-op. Please assist in scheduling. Thank you BRITTNY Horowitz Sheri, APRN.CNP 06/07/2023 8:26 AM Signed Addended by: AARON AGUILAR on: 06/07/2023 08:26 AM Modules accepted: [...] Sanchez RN June 12, 2023 12:49 PM Aaron Aguilar APRN.COLLECTION CARD CLERK 06/13/2023 11:[address] Chao, Patient saw endocrinology at [facility] 06/08 and had medications adjusted. I called patient to see how BG levels have been but unable to reach. She has a follow up with endo 06/20 Can she proceed with surgery since she saw endo? Thank you Aaron Aguilar APRN.COLLECTION CARD CLERK PACC Aaron Aguilar APRN.KIARA 06/15/2023 1:26 PM Signed Repeat [...] to assure of instructions above Thank you Aaron Aguilar APRN.Anitra Granado RN 06/19/2023 9:07 AM Addendum I spoke with patient and instructions given to take at least 12 units of her Lantus the night prior to her scheduled surgery on 06/22/[address] Ballard. Patient stated she is not feeling well and has the following symptoms: whole body aches, chills, nausea, and fatigue. She is on her way to [facility] ED. Because patient is not feeling [...] with hyperglycemia (HCC) [E11.65] Order(s):CONSULT TO ENDOCRINOLOGY [9652] Order #: [id number]: 1 FUTURE Prescriptions as of 06/19/2023 - [...] hours as (more content not included)... Normal [facility] CBC W Auto Differential pane l (Bld)on 06-06-2023 Basophils (Bld) [#/Vol] 0.04 10*3/uL Normal <0.11 [facility] Comment on above: Order Comment: Speci men Type: BLOOD SPECIMENOrdering Facility: [facility] Address: [address] [place] [address] Performed By: #### 5 7021-8 ####[facility] [id number] [place] [address] [place] Basophils/100 WBC (Bld) 0.8 % Normal [facility] Comment on above: Order Comment: Speci men Type: BLOOD SPECIMENOrdering Facility: [facility] Address: [address] [place] [address] Performed By: #### 5 7021-8 ####[facility] LABCLIA [id number] [place] [address] [place] Differential cell count method Nom (Bld) Auto Normal [facility] Comment on above: Order Comment: Speci men Type: BLOOD SPECIMENOrdering Facility: [facility] Address: [address] [place] [address] Performed By: #### 5 7021-8 ####[facility] LABCLIA [id number] [place] [address] [place] Eosinophils (Bld) [#/Vol] 0.15 10*3/uL Normal <0.46 [facility] Comment on above: Order Comment: Speci men Type: BLOOD SPECIMENOrdering Facility: [facility] Address: [address] [place] [address] Performed By: #### 5 7021-8 ####[facility] LABCLIA [id number] [place] [address] [place] Eosinophils/100 WBC (Bld) 3.1 % Normal [facility] Comment on above: Order Comment: Speci men Type: BLOOD SPECIMENOrdering Facility: [facility] Address: [address] [place] [address] Performed By: #### 5 7021-8 ####[facility] LABCLIA [id number] [place] [address] [place] Erythrocyte distribution width (RBC) [Ratio] 14.7 % Normal 11.5-15.0 [facility] Comment on above: Order Comment: Speci men Type: BLOOD SPECIMENOrdering Facility: [facility] Address: [address] [place] [address] Performed By: #### 5 7021-8 ####[facility]CLIA [id number] [place] [address] [place] Hematocrit (Bld) [Volume fraction] 37.2 % Normal 36.0-46.0 [facility] Comment on above: Order Comment: Speci men Type: BLOOD SPECIMENOrdering Facility: [facility] Address: [address] [place] [address] Performed By: #### 5 7021-8 ####[facility]IA [id number] [place] [address] [place] Hemoglobin (Bld) [Mass/Vol] 11.9 g/dL Normal 11.5-15.5 [facility] Comment on above: Order Comment: Speci men Type: BLOOD SPECIMENOrdering Facility: [facility] Address: [address] [place] [address] Performed By: #### 5 7021-8 ####[facility] [id number] [place] [address] [place] Immature granulocytes (Bld) [#/Vol] 10*3/uL Normal <0.10 [facility] Comment on above: Order Comment: Speci men Type: BLOOD SPECIMENOrdering Facility: [facility] Address: [address] [place] [address] Performed By: #### 5 7021-8 ####[facility]IA [id number] [place] [address] [place] Immature granulocytes/100 WBC (Bld) 0.4 % Normal [facility] Comment on above: Order Comment: Speci men Type: BLOOD SPECIMENOrdering Facility: [facility] Address: [address] [place] [address] Performed By: #### 5 7021-8 ####[facility]CLIA [id number] [place] [address] [place] Lymphocytes (Bld) [#/Vol] 2.18 10*3/uL Normal 1.00-4.00 [facility] Comment on above: Order Comment: Speci men Type: BLOOD SPECIMENOrdering Facility: [facility] Address: [address] [place] [address] Performed By: #### 5 7021-8 ####[facility]CLIA [id number] [place] [address] [place] Lymphocytes/100 WBC (Bld) 44.7 % Normal [facility] Comment on above: Order Comment: Speci men Type: BLOOD SPECIMENOrdering Facility: [facility] Address: [address] [place] [address] Performed By: #### 5 7021-8 ####[facility] LABIA [id number] [place] [address] [place] MCH (RBC) [Entitic mass] 25.4 pg Low 26.0-34.0 [facility] Comment on above: Order Comment: Speci men Type: BLOOD SPECIMENOrdering Facility: [facility] Address: [address] [place] [address] Performed By: #### 5 7021-8 ####[facility] [id number] [place] [address] [place] MCHC (RBC) [Mass/Vol] 32.0 g/dL Normal 30.5-36.0 [facility] Comment on above: Order Comment: Speci men Type: BLOOD SPECIMENOrdering Facility: [facility] Address: [address] [place] [address] Performed By: #### 5 7021-8 ####[facility] [id number] [place] [address] [place] MCV (RBC) [Entitic vol] 79.5 fL Low 80.0-100.0 [facility] Comment on above: Order Comment: Speci men Type: BLOOD SPECIMENOrdering Facility: [facility] Address: [address] [place] [address] Performed By: #### 5 7021-8 ####[facility] LABIA [id number] [place] [address] [place] Monocytes (Bld) [#/Vol] 0.42 10*3/uL Normal <0.87 [facility] Comment on above: Order Comment: Speci men Type: BLOOD SPECIMENOrdering Facility: [facility] Address: [address] [place] [address] Performed By: #### 5 7021-8 ####[facility] [id number] [place] [address] [place] Monocytes/100 WBC (Bld) 8.6 % Normal [facility] Comment on above: Order Comment: Speci men Type: BLOOD SPECIMENOrdering Facility: [facility] Address: [address] [place] [address] Performed By: #### 5 7021-8 ####[facility] LABCLIA [id number] [place] [address] [place] Neutrophils (Bld) [#/Vol] 2.07 10*3/uL Normal 1.45-7.50 [facility] Comment on above: Order Comment: Speci men Type: BLOOD SPECIMENOrdering Facility: [facility] Address: [address] [place] [address] Performed By: #### 5 7021-8 ####[facility] LABCLIA [id number] [place] [address] [place] Neutrophils/100 WBC (Bld) 42.4 % Normal [facility] Comment on above: Order Comment: Speci men Type: BLOOD SPECIMENOrdering Facility: [facility] Address: [address] [place] [address] Performed By: #### 5 7021-8 ####[facility]CLIA [id number] [place] [address] [place] Nucleated RBC (Bld) [#/Vol] 10*3/uL Normal <0.01 [facility] Comment on above: Order Comment: Speci men Type: BLOOD SPECIMENOrdering Facility: [facility] Address: [address] [place] [address] Performed By: #### 5 7021-8 ####[facility] LABCLIA [id number] [place] [address] [place] Nucleated RBC/100 WBC (Bld) [Ratio] 0.0 /100 WBC Normal [facility] Comment on above: Order Comment: Speci men Type: BLOOD SPECIMENOrdering Facility: [facility] Address: [address] [place] [address] Performed By: #### 5 7021-8 ####[facility]CLIA [id number] [place] [address] [place] Platelet mean volume (Bld) [Entitic vol] 11.5 fL Normal 9.0-12.7 [facility] Comment on above: Order Comment: Speci men Type: BLOOD SPECIMENOrdering Facility: [facility] Address: [address] [place] [address] Performed By: #### 5 7021-8 ####[facility]CLIA [id number] [place] [address] [place] Platelets (Bld) [#/Vol] 230 10*3/uL Normal 150-400 [facility] Comment on above: Order Comment: Speci men Type: BLOOD SPECIMENOrdering Facility: [facility] Address: [address] [place] [address] Performed By: #### 5 7021-8 ####[facility] LABCLIA [id number] [place] [address] [place] RBC (Bld) [#/Vol] 4.68 10*6/uL Normal 3.90-5.[address] [facility] Comment on above: Order Comment: Speci men Type: BLOOD SPECIMENOrdering Facility: [facility] Address: [address] [place] [address] Performed By: #### 5 7021-8 ####[facility]CLIA [id number] [place] [address] [place] WBC (Bld) [#/Vol] 4.88 10*3/uL Normal 3.70-11.[address] [facility] Comment on above: Order Comment: Speci men Type: BLOOD SPECIMENOrdering Facility: [facility] Address: [address] [place] [address] Performed By: #### 5 7021-8 ####[facility] LABCLIA [id number] [place] [address] [place] Comprehensive metabolic 2000 panelon 06-06-2023 Albumin [Mass/Vol] 3.8 g/dL Low 3.9-4.9 [facility] Comment on above: Order Comment: Speci men Type: BLOOD SPECIMENOrdering Facility: [facility] Address: [address] [place] [address] Performed By: #### 2 4323-8 ####[facility]CLIA [id number] [place] [address] [place] ALP [Catalytic activity/Vol] 115 U/L Normal 34-123 [facility] Comment on above: Order Comment: Speci men Type: BLOOD SPECIMENOrdering Facility: [facility] Address: [address] [place] [address] Performed By: #### 2 4323-8 ####[facility]CLIA [id number] [place] [address] [place] ALT [Catalytic activity/Vol] 11 U/L Normal 7-38 [facility] Comment on above: Order Comment: Speci men Type: BLOOD SPECIMENOrdering Facility: [facility] Address: [address] [place] [address] Performed By: #### 2 4323-8 ####[facility]CLIA [id number] [place] [address] [place] Anion gap [Moles/Vol] 11 mmol/L Normal 9-18 [facility] Comment on above: Order Comment: Speci men Type: BLOOD SPECIMENOrdering Facility: [facility] Address: [address] [place] [address] Performed By: #### 2 4323-8 ####[facility]CLIA [id number] [place] [address] [place] AST [Catalytic activity/Vol] 12 U/L Low 13-35 [facility] Comment on above: Order Comment: Speci men Type: BLOOD SPECIMENOrdering Facility: [facility] Address: [address] [place] [address] Performed By: #### 2 4323-8 ####[facility] LABCLIA [id number] [place] [address] [place] Bilirubin [Mass/Vol] 0.3 mg/dL Normal 0.2-1.3 [facility] Comment on above: Order Comment: Speci men Type: BLOOD SPECIMENOrdering Facility: [facility] Address: [address] [place] [address] Performed By: #### 2 4323-8 ####[facility]CLIA [id number] [place] [address] [place] Calcium [Mass/Vol] 8.9 mg/dL Normal 8.5-10.2 [facility] Comment on above: Order Comment: Speci men Type: BLOOD SPECIMENOrdering Facility: [facility] Address: [address] [place] [address] Performed By: #### 2 4323-8 ####[facility] LABCLIA [id number] [place] [address] [place] Chloride [Moles/Vol] 95 mmol/L Low 97-105 [facility] Comment on above: Order Comment: Speci men Type: BLOOD SPECIMENOrdering Facility: [facility] Address: [address] [place] [address] Performed By: #### 2 4323-8 ####[facility] LABCLIA [id number] [place] [address] [place] CO2 [Moles/Vol] 24 mmol/L Normal 22-30 [facility] Comment on above: Order Comment: Speci men Type: BLOOD SPECIMENOrdering Facility: [facility] Address: [address] [place] [address] Performed By: #### 2 4323-8 ####[facility] LABCLIA [id number] [place] [address] [place] Creatinine [Mass/Vol] 1.81 mg/dL High 0.58-0.96 [facility] Comment on above: Order Comment: [place] Type: BLOOD SPECIMENOrdering Facility: [facility] Address: [address] [place] [address] Performed By: #### 2 4323-8 ####[facility]CLIA [id number] [place] [address] [facility] [place] Creatinine and Glomerular filtration rate.predicted panel (S/P/Bld) 31 mL/min/1.73m??? Low >=60 [facility] Comment on above: Order Comment: [place] Type: BLOOD SPECIMENOrdering Facility: [facility] Address: [address] [place] [address] Result Comment: Donna mated Glomerular Filtration Rate [...] actual GFR. Performed By: #### 2 4323-8 ####[facility]CLIA [id number] [place] [address] [place] Glucose [Mass/Vol] 510 mg/dL High 74-99 [facility] Comment on above: Order Comment: [place] Type: BLOOD SPECIMENOrdering Facility: [facility] Address: [address] [place] [address] Result Comment: The [place] [employer] (ADA) provides guidance for cutoff [...] Standards of Medical Care in Diabetes 2016, [place] [employer]. Diabetes Care. 2016.39(Suppl 1). Performed By: #### 2 4323-8 ####[facility]CL[facility] [id number] [place] [address] [place] Potassium [Moles/Vol] 5.9 mmol/L High 3.7-5.1 [facility] Comment on above: Order Comment: Speci men Type: BLOOD SPECIMENOrdering Facility: [facility] Address: [address] [place] [address] Performed By: #### 2 4323-8 ####[facility] LABIA [id number] [place] [address] [place] [place] Protein [Mass/Vol] 8.2 g/dL High 6.3-8.0 [facility] Comment on above: Order Comment: Speci men Type: BLOOD SPECIMENOrdering Facility: [facility] Address: [address] [place] [address] Performed By: #### 2 4323-8 ####[facility] LABCLIA [id number] [place] [address] [place] Sodium [Moles/Vol] 130 mmol/L Low 136-144 [facility] Comment on above: Order Comment: Speci men Type: BLOOD SPECIMENOrdering Facility: [facility] Address: [address] [place] [address] Performed By: #### 2 4323-8 ####[facility] LABCLIA [id number] [place] [id number] [place] Urea nitrogen [Mass/Vol] 36 mg/dL High 7-21 [facility] Comment on above: Order Comment: Speci men Type: BLOOD SPECIMENOrdering Facility: [facility] Address: [address] [place] [address] Performed By: #### 2 4323-8 ####[facility] LABCLIA [id number] [address] [address] [place] OF [facility] ECG COMPLETEon 06-06-2023 ECG COMPLETE Ventricular Rate : 7 6 BPM Atrial Rate : 76 BPM P-R Interval : 162 ms QRS Duration : 74 ms Q-T Interval : 402 ms QTC Calculation(Bazett) : 452 ms Calculated P [place] : 48 degrees Calculated R [place] : 43 degrees Calculated T [place] : 53 degrees NORMAL SINUS RHYTHM POSSIBLE LEFT ATRIAL ENLARGEMENT BORDERLINE ECG Confirmed by AMANDA DAVID MD ([id number]) on 06/10/2023 4:44:16 PM NAME : AISLINN WHEELER PID : [id number] : 1960 Gender : Female Race : ORD : [id number] Procedure Date : Jun 06 2023 12:04:48 Edit Date : Jun 10 2023 16:44:21 Diagnosis: NORMAL SINUS RHYTHM POSSIBLE LEFT ATRIAL ENLARGEMENT BORDERLINE ECG Confirmed by AMANDA DAVID MD ([id number]) on 06/10/2023 4:44:16 PM Test Reason : Z01.818 Preop examination [facility] : [facility] Over[facility] By : AMANDA DAVID MD Edited By : AMANDA DAVID MD Referred By : TAURUS BALLARD Acquired by : Fabio hull [facility] HISTORY PHYSICALon HISTORY PHYSICAL HNO ID: [id number] Author: Aaron Aguilar APRN.COLLECTION CARD CLERK Service: ? Author Type: Nurse Practitioner Type: HANDP Filed: 06/15/2023 1:27 PM Note Text: HISTORY AND PHYSICAL EXAMINATION SERVICE DATE: 06/06/2023 SERVICE TIME: 12:34 PM PRIMARY CARE PHYSICIAN: Agusto Olmstead REASON FOR VISIT: Aislinn Wheeler is [...] 2 drinks per day. : See HPI SAMPLE COORDINATOR: Negative for abnormal vaginal bleeding, abnormal [...] arm - [facility] Skin: Negative for lesions, rash and itching. Objective PHYSICAL EXAM: VITALS: BP 174/80 Pulse 76 Temp (Src) 97 (Temporal) Resp 16 Ht 5' 0 (1.52m) Wt 131 lb (59.4kg) SpO2 99% BMI 25.58 kg/(m2). General: Alert and oriented, No acute distress Skin: Normal color, no rash, no lesions. HEENT: EOM, pupils equal, (more content not included)... Normal [facility] HbA1c (Bld)on 06-06-2023 Average glucose Estimated from glycated hemoglobin (Bld) [Mass/Vol] 335 mg/dL Normal [facility] Comment on above: Order Comment: Speci men Type: BLOOD SPECIMENOrdering Facility: [facility] Address: [address] [place] [address] Result Comment: eAG: (Estimated average glucose) is a calculated value from HgbA1c and is players club representative of the average blood glucose level in the last 2-3 month period. Performed By: #### 5 5454-3 ####[facility] LABCLIA [id number] [facility] [id number] [address] [place] HbA1c (Bld) [Mass fraction] 13.3 % High 4.3-5.6 [facility] Comment on above: Order Comment: [place] Type: BLOOD SPECIMENOrdering Facility: [facility] Address: [address] [place] [address] Result Comment: Elayne ican Diabetes Association guidelines indicate that patients with HgbA1c in the range 5.7-6.4% are at increased risk for development of diabetes, and intervention by lifestyle modification may be beneficial. HgbA1c greater or equal to 6.5% is considered diagnostic of diabetes. Performed By: #### 5 5454-3 ####[facility] LABCLIA [id number] OF [place] PT panel Coag (PPP)on 2022 INR Coag (PPP) [Relative time] 1.0 {INR} Normal 0.9-1.3 [facility] Comment on above: Order Comment: [place] Type: BLOOD SPECIMENOrdering Facility: [facility] Address: [address] [place] [address] Result Comment: Laxmi min K Antagonist (VKA) Therapeutic Range: INR 2 to 3 (Target INR of 2.5) Note: For patients treated with VKA drugs, such as warfarin, the [place] [employer] 2012 Guideline recommends [...] GH, et al. Chest 2012, 141:7S-47S Eligio LEÓN et al. [facility] 2017, 70: 252-289 Performed By: #### 1 4979-9, 63527-3 ####[facility] LABCLIA [id number] [address] STATES OF [place] PT Coag (PPP) [Time] 10.1 s Normal 9.7-13.0 [facility] Comment on above: Order Comment: Speci men Type: BLOOD SPECIMENOrdering Facility: [facility] Address: [address] [place] [address] Performed By: #### 1 4979-9, 87231-4 ####[facility] LABCLIA [id number] [address] OF [facility] TYPE AND SCREEN,30 DAYon ABO B Normal [facility] Comment on above: Order Comment: Speci men Type: BLOOD SPECIMENOrdering Facility: [facility] Address: [address] [place] [address] Performed By: #### T SCR30 ####[facility] BLOOD BANKIA [id number] [address] STATES OF [place] HISTORICAL AB SCR STATUS Negative Normal [facility] Comment on above: Order Comment: Speci men Type: BLOOD SPECIMENOrdering Facility: [facility] Address: [address] [place] [address] Performed By: #### T SCR30 ####[facility] BLOOD BANKCLIA [id number] [address] STATES OF [place] Rh Nom (Bld) Positive Normal [facility] Comment on above: Order Comment: Speci men Type: BLOOD SPECIMENOrdering Facility: [facility] Address: [address] [place] [address] Performed By: #### T SCR30 ####[facility] BLOOD BANKIA [id number] [address] OF [place] aPTT PPPon 06-06-2023 aPTT Coag (PPP) [Time] 28.7 s Normal 23.0-32.4 [facility] Comment on above: Order Comment: Speci men Type: BLOOD SPECIMENOrdering Facility: [facility] Address: [address] [place], [place] [address] Result Comment: Froz en Plasma Aliquot Performed By: #### 1 4979-9, 13172-9 ####[facility] LABCLIA [id number] [place] [address] [place] Consent for Procedure/Surger yon 05-22-2023 Consent for Procedure/Surgery [id number]#1.0 0CD:127 Normal [facility] Consent for Treatmenton Consent for Treatment [id number]#1.00C D:127 Normal [facility] Inpatient Patient Summaryon 05-22-2023 Inpatient Patient Summary [address] [address] Clinical Summary Person Information Name: AISLINN WHEELER Age: 63 Years : 1960 Sex: Female PCP: AGUSTO OLMSTEAD CNP Marital Status: Race: White Ethnicity: Non- or Language: [place]an Visit Id: Visit Reason: MIXED URINARY INCONTINENCE Speciality: Acuity: Enc Type: Outpatient Med Service: Surgery Arrival: 05/22/2023 09:41:57 Discharge: Dispo Type: Address: [address] [place] [address] [id number] Provider Notes: Diagnosis: Feeling of incomplete bladder [...] Address: When: Lisa Porras [address], [place] [phone] Business (1) [facility] [address] [place] [phone] Business (1) Comments: Office to schedule follow up in 1 month with PVR Patient Education Information: EU - Cystoscopy with Botox Injection Discharge Instructions (CUSTOM) Normal [facility] IntraOperative Documentson 1 IntraOperative Documents [id number]#1.0 0CD:127 Normal [facility] Main OR Intraoperative Recor don 05-22-2023 Main OR Intraoperative Record IntraOp Document Type FTURO Summary Primary Physician: Lisa Porras MD Finalized Date/Time: 05/22/23 11:29:32 Pt. Name: AISLINN WHEELER/Sex: 1960 Female Med Rec #: [id number] Physician: Lisa Porras MD Financial #: [id number] Pt. Type: O Room/Bed: / Admit/Disch: 05/22/23 09:41:57 - Institution: Case Times FTURO Entry 1 Patient Times In Room 05/22/23 11:15:00 Out Room 05/22/23 11:30:00 Procedure Times Start 05/22/23 11:22:00 Stop 05/22/23 11:26:00 Anesthesia Times Last Modified By: Katya LE, Marilee Feldman 05/22/23 11:26:29 General Comments: BOTOX 100 UNITS LOT#: [id number] , EXP DATE: 09/2025 -Jessica BLANCO RN Case Attendance FTURO Entry 1 Entry 2 Entry 3 Case Attendee Vern TAVERAS, Lisa Blanco RN, Marilee Solano CST, Cammie Feldman Role Performed Surgeon - Primary Professional Skateboarder - Primary Scrub - Primary Time In [...] Marilee Blanco RN Applicable) Xiomara Cagle CST, Cammie Shoemaker Time Out Complete 05/22/23 11:22:00 Allergies [...] Marilee Blanco RN 05/22/23 11:29 Normal [facility] Main OR Preoperative Recordo n 05-22-2023 Main OR Preoperative Record Holding Area Document Type FTURO Summary Primary Physician: Lisa Porras MD Finalized Date/Time: 05/22/23 10:32:24 Pt. Name: AISLINN WHEELER /Sex: 1960 Female Med Rec #: [id number] Physician: Lisa Porras MD Financial #: [id number] Pt. Type: O Room/Bed: / Admit/Disch: 05/22/23 09:41:57 - Institution: Case Times Holding FTURO Pre-Care Text: Verifies consent for planned procedure, identifies individual values and wishes concerning care, includes family members in perioperative teaching Secures patient's records' belongings, and valuables, maintains patient's dignity and privacy, and maintains patient confidentiality Entry 1 In Holding 05/22/23 10:22:00 Outcomes Met? Yes Last Modified By: Cammie Mcpherson RN 05/22/23 10:22:41 Post-Care Text: The [...] Collected RN Reviewed Yes Last Modified By: Cammie Mcpherson RN 05/22/23 10:32:20 Finalized By: Cammie Mcpherson RN Document Signatures Signed By: Cammie Mcpherson RN 05/22/23 10:32 Normal [facility] Operative Reporton 3 Operative Report Patient: BARBARA WHEELER Age: 63 years Sex: Female : 1960 Associated Diagnoses: None Author: Lisa Porras MD Procedure Operative Information Details: Date/ Time: 05/22/2023 11:29:00. Pre-Op Dx: Feeling of incomplete bladder emptying ([id number] R39.14, Discharge, Medical), Mixed incontinence (PVX23-DF N39.46, Discharge, Medical), Urinary leakage (AUT71-VS R32, Discharge, Medical). Post-Op Dx: Same. Anesthesia [...] to [facility] in the remote past). Normal [facility] Comment on above: Result Comment: Elec tronically Signed By: Vern TAVERAS, Lisa Montiel\.br\Date and Time Signed: 05/22/23 11:30 EDT Outpatient Surgery Discharge Instructionon 05-22-2023 Outpatient Surgery Discharge Instruction [address] [address] Patient Discharge Instructions PERSON INFORMATION Name: AISLINN WHEELER Date of : 1960 Current Date: 05/22/2023 11:29:02 PHYSICIANS Admitting Physician: Lisa Porras MD. Comment: Discharge Diagnosis: Feeling of incomplete bladder emptying; Mixed incontinence; Urinary leakage AISLINN WHEELER has been given the following list of follow-up instructions, prescriptions, and patient education materials: IF UNABLE TO CONTACT YOUR PHYSICIAN AND YOU FEEL IT IS AN EMERGENCY, GO TO THE NEAREST EMERGENCY ROOM OR CALL 911 Follow up: With: Address: When: Lisa Porras [address] [place] [phone] Business (1) [address] [place], [place] [address], [employer] [address] [phone] Business (1) Comments: Office to schedule follow [...] Date You may receive a survey from [employer] asking you to rate your care experience. Your feedback is important and will help us understand what we do well and how we can improve the quality of care we provide to you, your loved ones and our community. It?s an honor to serve you. Thank you [facility] choosing [facility] Normal [facility] Consultation Noteon 05-19-20 Consultation Note [id number]#1.00C D:127 Normal [facility] A1C HEMOGLOBINon 05-18-2023 HbA1c (Bld) [Mass fraction] 14.0 % [employer] Other [place] 05-18-2023 NIECY Telephone (URFHR) LIAMAISLINN ([id number]) 1960 F Date Time Provider Department 05/18/23 TAURUS BALLARD During your visit today, we recorded the following information about you: Agusto Faulkner 05/18/2023 1:01 PM Signed Consult notes sent back to Dr. Lisa Porras , phone [phone]. From Dr. Ballard office. Allergies As of [...] Encounter Status:Closed by DERIK FERNANDEZ on 06/09/23 [facility] Glucose - FINGER STICKon Glucose [Mass/Vol] 429 mg/dL [employer] Other HbA1c (Bld) [Mass fraction]o n 05-18-2023 A1C HEMOGLOBIN [facility] [email or web address] Other CNOVon 05-17-2023 CNOV Office Visit (URFHR) LIAMAISLINN PAEZ Ashok ([id number]) 1960 F Date Time Provider Department 05/17/23 1:10 PM TAURUS BALLARD URR During your visit today, we recorded the following information about you: Temperature Pulse Blood pressure Weight 97.5 degrees 70/minute 172/81 60.1 kg Taurus Ballard MD 05/17/2023 1:35 PM Signed [facility] FOLLOW-UP PATIENT HISTORY AND PHYSICAL [...] 1.92 01/19/[address] scan (outside records) [facility] 09/28/21 IMPRESSION: Since the prior CT [...] b/l hydronephrosis and ANATOLIY which resolved with chavse catheter placement. Pt followed with Dr. Nolen [...] other structures) (more content not included)... Normal [facility] C Urineon 05-13-2023 Bacteria identified Cx [...] I=Intermediate, ESBL=Extended spectrum beta-lactamase, R=Resistant, TFG=Thymidine-dependent strain, VIENET=Beta-lactamase positive, LOCO=mcg/m;(mg/L), S*=Predicted susceptible interp, R*=Predicted resistant [...] Locations R1: This test was performed at: [facility], [address] [place] [address], [address]- , [place], Normal [facility] Comment on above: Performed By: #### 2 [id number] #### [facility] [address] [place] [address] Physician Referralon 023 Physician Referral [id number] :127 PATIENT IS SCHEDULED 05/17/2023 [facility] Consultation Noteon 05-04-20 23 Consultation Note [id number]#1.00CD :127 Normal [facility] Insurance Correspondenceon 0 05-04-2023 Insurance Correspondence [id number]#[id number] CD:127 [facility] Urology Office/Clinic Noteon 05-04-2023 Urology Office/Clinic Note [...] mass on Kidney was not cancerous. However car attendant told her she has kidney cancer. Denies [...] PSH lap cholecystectomy, open hysterectomy -Continues with car attendant for CKD3 1. Renal cyst (N28.1: Cyst [...] This has increased slightly in size since 2015, but still favors benign etiology. CTU 02/13/23 [...] center, Dr. Ballard at [facility] for evaluation of robotic left cyst decortication -Pt states car attendant told her she has cancer. 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 Ordered: 40637 Measure Post Void residual urine and/or bladder capacity by US- non-imaging Urnls Dip Stick Auto w/o Microscopy POC 96298 2. Mixed incontinence (N39.46: Mixed incontinence) Pt [...] of Botox. (more content not included)... Normal [facility] Comment on above: Result Comment: Elec tronically Signed By: Vern TAVERAS, Lisa Montiel\.br\Date and Time Signed: 05/04/23 14:11 EDT Ambulatory Visit Summaryon 0 05-03-2023 Ambulatory Visit Summary AISLINN WHEELER :1960 Visit Date:05/03/2023 Ambulatory Visit Instructions Your Diagnosis Renal mass Renal cyst Mixed incontinence Feeling of incomplete bladder emptying Glucosuria Tests Performed Urnls Dip Stick Auto w/o Microscopy POC 51230 Your Care Team Attending Physician - Lisa Porras MD Primary Care Physician - AGUSTO OLMSTEAD CNP This Is Your Medications List [...] one day prior to procedure Pickup at [facility] New estradiol topical (Estrace 0.1 mg/ g Cream) See instructions Refills: 3 apply pea size amount to urethra/ inner vagina 3x/ week x 1 month, then 2x/ week for maintainence Pickup at [employer] [facility] Unchanged trospium (trospium 20 mg [...] physician if questions or concerns Pharmacy Information [facility]: [address] [place], [place] [phone] Test Results Urnls Dip Stick Auto w/o Microscopy POC 49395 (05/03/2023) Bilirubin Urine Dipstick - Negative Blood Urine Dipstick - Trace-intact Glucose Urine Dipstick - 3+ 1000 mg/dl Ketones Urine Dipstick - Negative Leukocytes Urine Dipstick - Negative Nitrite Urine Dipstick - Negative Protein Urine Dipstick - Trace Specific [place] Urine Dipstick - 1.015 Urine Appearance Urine [...] are saf (more content not included)... Normal [facility] Patient Educationon 05-03-20 Patient Education Obstetrics and [...] provider. Document Revised: 12/16/2021 Document Reviewed: 12/16/2021 [employer] Patient Education ? 2022 [employer]. [facility] Screenson 05-03-2023 Screens [id number] CD:127 [facility] C Urineon 04-20-2023 Bacteria identified Cx Nom [...] Locations R1: This test was performed at: [facility], [address] [place] [address], [facility] , , [facility] Comment on above: Performed By: #### 2 [id number] ####[facility] [address] [place] [address] Ambulatory Visit Summaryon 0 04-18-2023 Ambulatory Visit Summary AISLINN WHEELER :1960 Visit Date:04/18/2023 Ambulatory Visit Instructions Your Diagnosis Urinary tract infection Your Care Team Attending Physician - Lisa Porras MD Primary Care Physician - AGUSTO OLMSTEAD CNP This Is Your Medications List [...] Lisa Porras MD Where: [facility] Screenson 02-23-2023 Screens [id number] CD:127 [facility] Ambulatory Visit Summaryon 0 02-22-2023 Ambulatory Visit Summary AISLINN WHEELER :1960 Visit Date:02/22/2023 Ambulatory Visit Instructions Your Diagnosis Renal mass Renal cyst Mixed incontinence Feeling of incomplete bladder emptying Glucosuria Tests Performed Urnls Dip Stick Auto w/o Microscopy POC 32194 Your Care Team Attending Physician - Lisa Porras MD Primary Care Physician - AGUSTO OLMSTEAD CNP This Is Your Medications List [...] Lisa Porras MD Where: [facility] Patient Educationon 02-23-20 Patient Education Obstetrics [...] provider. Document Revised: 12/16/2021 Document Reviewed: 12/16/2021 [employer] Patient Education ? 2022 [employer]. Fabio Zaragoza [facility] Urology Office/Clinic Noteon 02-22-2023 Urology Office/Clinic Note [...] PSH lap cholecystectomy, open hysterectomy -Continues with car attendant after referred last visit 1. Renal mass [...] the (more content not included)... [facility] Comment on above: Result Comment: Elec tronically Signed By: Lisa Porras MD\.br\Date and Time Signed: 02/22/23 10:14 EDT\.br\Electronically Co-Signed By: Marilee Gray\.br\Date and Time Co-Signed: 02/22/23 09:36 EDT Lab Reportson 02-20-2023 Lab Reports [id number] D:127 [facility] RAD - CT Reporton 02-20-2023 RAD - CT Report [id number]#1.00CD :127 [facility] Physician Orderon 02-01-2023 Physician Order [id number]#1.00CD :127 [facility] Consultation Noteon 01-08-20 Consultation Note [id number]#1.00C D:127 [facility] XR FOOT LT MIN 3 VIEWSon XR FOOT LT MIN 3 VIEWS Normal [facility] MG MAMM SCREEN 3D ALINE CADon 12-28-2022 MG MAMM SCREEN 3D ALINE CAD Normal [facility] XR DEXA BONE DENSITYon 12-28 XR DEXA BONE DENSITY Normal [facility] NM STRESS/REST MULTIon 12-15 NM STRESS/REST MULTI Normal [facility] XR FOOT LT MIN 3 VIEWSon XR FOOT LT MIN 3 VIEWS Normal [facility] Physician Referralon 023 Physician Referral [id number] D:127 Normal [facility] CT FOOT LT WO CONon 10-28-19 CT FOOT LT WO CON Normal The [facility] XR FOOT LT MIN 3 VIEWSon XR FOOT LT MIN 3 VIEWS Normal [facility] XR FOOT LT MIN 3 VIEWSon XR FOOT LT MIN 3 VIEWS Normal [facility] XR FOOT LT MIN 3 VIEWSon XR FOOT LT MIN 3 VIEWS Normal [facility] XR FOOT LT MIN 3 VIEWSon XR FOOT LT MIN 3 VIEWS Normal [facility] XR FOOT LT MIN 3 VIEWSon XR FOOT LT MIN 3 VIEWS Normal [facility] US KIDNEYSon 09-15-2022 US KIDNEYS Normal [facility] XR FOOT LT MIN 3 VIEWSon XR FOOT LT MIN 3 VIEWS Normal [facility] XR FOOT LT MIN 3 VIEWSon XR FOOT LT MIN 3 VIEWS Normal [facility] XR FOOT LT MIN 3 VIEWSon XR FOOT LT MIN 3 VIEWS Normal [facility] CBC AUTO DIFFon 08-03-2022 BASO # 0.0 103/ul Normal 0.0-0.1 [facility] Comment on above: Performed By: #### C BC ####[facility] [address] [place], [place] [address]UjIrina Ricardo Rocha Basophils/100 WBC (Bld) 0.5 % Normal 0.2-2.0 [facility] Comment on above: Performed By: #### C BC ####[facility] [address] [place] [id number]. Ricardo Rocha EO # 0.1 103/ul Normal 0.0-0.7 [facility] Comment on above: Performed By: #### C BC ####[facility] [address] [place] [address]Dr. Ricardo Rocha Eosinophils/100 WBC (Bld) 1.2 % Normal 0.9-7.0 [facility] Comment on above: Performed By: #### C BC ####[facility] [address] [place], [place] [address]Dr. Ricardo Rocha Erythrocyte distribution width (RBC) [Ratio] 15.0 % Normal 11.0-15.0 [facility] Comment on above: Performed By: #### C BC ####[facility] [address] [place], [place] [address]Dr. Ricardo Rocha Hematocrit (Bld) [Volume fraction] 29.5 % Critically low 36.0-48.0 [facility] Comment on above: Performed By: #### C BC ####[facility] [address] [place], [place] [address]Dr. Ricardo Rocha Hemoglobin (Bld) [Mass/Vol] 9.3 g/dL Critically low 12.0-16.0 [facility] Comment on above: Performed By: #### C BC ####[facility] [address] [place], [place] [address]Dr. Ricardo Rocha IG # 0.04 10e3/ul Critically high 0.00-0.03 [facility] Comment on above: Performed By: #### C BC ####[facility] [facility] Hlepecxwbu5[address] [place], [place] [address]Dr. Ricardo Rocha IG % 0.5 % Normal 0.0-0.5 [facility] Comment on above: Performed By: #### C BC ####[facility] Ywdybdrwyp55[address] [place], [place] [address]Dr. Ricardo Rocha LYMPH # 1.4 103/ul Normal 1.2-3.8 [facility] Comment on above: Performed By: #### C BC ####[facility] Pomjirvldb[address] [place] [phone]. Ricardo Aj Lymphocytes/100 WBC (Bld) 17.2 % Critically low 20.5-60.0 The [facility] Comment on above: Performed By: #### C BC ####[facility] Yhtxhhdush05[address] [place] [phone]. Nanomarcial Rocha MANUAL DIFF REQ NO Normal The [facility] Comment on above: Performed By: #### C BC ####[facility] Snbnvqpbys3625[address] [place], [place] [address]Dr. Ricardo Aj MCH (RBC) [Entitic mass] 25.2 pg Critically low 26.7-34.0 [facility] Comment on above: Performed By: #### C BC ####[facility] Fzezbrhaxr0634[address] [place], [place] [address]Dr. Ricardo Aj MCHC (RBC) [Mass/Vol] 31.5 g/dL Normal 29.9-35.2 [facility] Comment on above: Performed By: #### C BC ####[facility] Vqoxumaszp6[address] [place], [place] [address]Dr. Ricardo Aj MCV (RBC) [Entitic vol] 79.9 fL Critically low 81.0-99.0 The [facility] Comment on above: Performed By: #### C BC ####[facility] Ytmbhovrek5[address] [place], [place] [address]Dr. Ricardo Rocha MONO # 0.6 103/ul Normal 0.3-0.8 The [facility] Comment on above: Performed By: #### C BC ####[facility] Kwskykqqnv1513[address] [place], [place] [address]Dr. Nanomarcial Rocha Monocytes/100 WBC (Bld) 7.6 % Normal 1.7-12.0 [facility] Comment on above: Performed By: #### C BC ####[facility] Ejtegbdnih08[address] [place], [place] [address]Dr. Ricardo Rocha NEUT # 5.9 103/ul Normal 1.4-6.5 [facility] Comment on above: Performed By: #### C BC ####[facility] Kgprzvlaxk8[address] [place] [phone]. Ricardo Rocha Neutrophils/100 WBC (Bld) 73.0 % Normal 43.0-75.0 [facility] Comment on above: Performed By: #### C BC ####[facility] Cjduoltdwf[address] [place] [phone]. Ricardo Rocha Platelet mean volume (Bld) [Entitic vol] 11.4 fL Normal 9.5-13.5 [facility] Comment on above: Performed By: #### C BC ####[facility] Sgmhwypqzo7371 [place] [phone]. Ricardo Rocha PLT 253 103/ul Normal 150-450 [facility] Comment on above: Performed By: #### C BC ####[facility] Wjbrolxsua3051 [place] [phone]. Ricardo Rocha RBC 3.69 106/ul Critically low 4.20-5.40 [place] Comment on above: Performed By: #### C BC ####[facility] Rukeazjpwd6[address] [place], [place] [address]Dr. Ricardo Rocha WBC 8.0 103/ul Normal 4.0-11.0 [facility] Comment on above: Performed By: #### C BC ####[facility] Uncfywmpmm8177[address] [place], [place] [address]Dr. Ricardo Rocha CRPon 08-03-2022 CRP 3.1 mg/dL Critically high <=1.0 The [facility] Comment on above: Performed By: #### C RP, BMP, URIC ####[facility] Usfyfiqzym7[address] [place], [place] [address]Dr. Ricardo Rocha CULTURE BLOODon 08-03-2022 Microscopic examination of blood, culture Culture Observations: NO GROWTH AT 5 DAYS. Normal [facility] Comment on above: Performed By: #### B LDCX2 ####[facility] Gkzslrpoxm[address] [place], [place] [address]Dr. Ricardo Rocha Microscopic examination of blood, culture Culture Observations: NO GROWTH AT 5 DAYS. Normal [facility] Comment on above: Performed By: #### B LDCX1 ####[facility] Lvndbilnin178[address] [place], [place] [address]Dr. Ricardo Rocha ER URINE PROFILEon 2 Bilirubin Ql (U) Negative Normal NEGATIVE The [facility] Comment on above: Performed By: #### E RUR ####[facility] Cpwgpxtnin64[address] [place], [place] [address]Dr. Ricardo Rocha Clarity (U) CLEAR Normal CLEAR [facility] Comment on above: Performed By: #### E RUR ####[facility] Cvgsmzvxip9765[address] [place], [place] [address]Dr. Ricardo Rocha Color (U) LT. YELLOW Normal YELLOW [facility] Comment on above: Performed By: #### E RUR ####[facility] Lbgdgdfycw1888[address] [place], [place] [address]Dr. Ricardo Aj ERUAHD A micrscopic examination will be performed if indicated. Normal [facility] Comment on above: Performed By: #### E RUR ####[facility] Xsuenirbtx4054[address] [place], [place] [address]Dr. Ricardo Rocha Glucose Ql (U) 100 mg/dl Abnormal NEGATIVE The [facility] Comment on above: Performed By: #### E RUR ####[facility] Nbhfgnpoil30[address] [place], [place] [address]Dr. Ricardo Rocha Hemoglobin Ql (U) Negative Normal NEGATIVE The [facility] Comment on above: Performed By: #### E RUR ####[facility] Bjzdmuqmlc365166 [address] [place], [place] [address]Dr. Ricardo Rocha Ketones Ql (U) Negative Normal NEGATIVE The [facility] Comment on above: Performed By: #### E RUR ####[facility] Npovnbquww1227[address] [place], [place] [address]Dr. Ricardo Rocha LEUKOCYTES Negative Normal NEGATIVE The [facility] Comment on above: Performed By: #### E RUR ####[facility] Tlzurjfgom5395[address] [place], [place] [address]Dr. Ricardo Rocha Nitrite Ql (U) Negative Normal NEGATIVE The [facility] Comment on above: Performed By: #### E RUR ####[facility] Kzevkolrpr0[address] [place] [address]Dr. Ricardo Rocha pH (U) 6.0 [pH] Normal 5-9 [facility] Comment on above: Performed By: #### E RUR ####[facility] Clrdesmosr8606 [place] [address]Dr. Ricardo Rocha SPEC GRAVITY 1.010 Normal 1.005-<=1.02 5 [facility] Comment on above: Performed By: #### E RUR ####[facility] Fjpznbdkkz5801[address] [place], [place] [address]Dr. Ricardo Rocha UA PROTEIN Negative Normal NEGATIVE/ TRACE [facility] Comment on above: Performed By: #### E RUR ####[facility] Edgxysrfzw1779[address] [place], [place] [address]Dr. Ricardo Rocha UR MICRO IND NOT INDICATED Normal [place] Comment on above: Performed By: #### E RUR ####[facility] Vxsexgyzma603[address] [place], [place] [address]Dr. Ricardo Rocha Urobilinogen Qn (U) 0.2 {Madeleine'U}/dL Normal 0.2 - 1. 0 [facility] Comment on above: Performed By: #### E RUR ####[facility] Myiqhokiwt535[address] [place], [place] [address]Dr. Ricardo Rocha LACTATE/LACTIC ACIDon 2021 Lactate [Moles/Vol] 0.5 mmol/L Normal 0.4-1.9 [facility] Comment on above: Performed By: #### L ACT ####[facility] Easvvnncqp7224[address] [place], [place] [address]Dr. Ricardo Rocha PROF CHEM 8 (BAS METB)on Anion gap [Moles/Vol] 12.9 mmol/L Normal [facility] Comment on above: Performed By: #### C RP, BMP, URIC ####[facility] Ahkhrcinja090[address] [place], [place] [address]Dr. Ricardo Rocha Calcium [Mass/Vol] 9.0 mg/dL Normal 8.5-10.1 [facility] Comment on above: Performed By: #### C RP, BMP, URIC ####[facility] Ybambhpaum[address] [place] [address]Dr. Ricardo Rocha Chloride [Moles/Vol] 102 mmol/L Normal 98-107 [facility] Comment on above: Performed By: #### C RP, BMP, URIC ####[facility] Hldtgswara2363 [place] [address]Dr. Ricardo Rocha CO2 [Moles/Vol] 23.9 mmol/L Normal 21.0-32.0 The [facility] Comment on above: Performed By: #### C RP, BMP, URIC ####[facility] Tgjvduwiyu5216[address] [place], [place] [address]Dr. Ricardo Rocha Creatinine [Mass/Vol] 1.36 mg/dL Critically high 0.55-1.02 [facility] Comment on above: Performed By: #### C RP, BMP, URIC ####[facility] Pprnuvrwbl6[address] [place], [place] [address]Dr. Ricardo Rocha EGFR-AF BRITISH 47 mL/min/1.73m2 Critically low >=60 [facility] Comment on above: Performed By: #### C RP, BMP, URIC ####[facility] Jmvgfvxxrz9407 [place] [address]Dr. Ricardo Rocha EGFR-NON AF BRITISH 39 mL/min/1.73m2 Critically low >=60 [facility] Comment on above: Performed By: #### C RP, BMP, URIC ####[facility] Nlvmflynzk38[address] [place] [address]Dr. Ricardo Rocha Glucose [Mass/Vol] 125 mg/dL Critically high 74-106 [facility] Comment on above: Performed By: #### C RP, BMP, URIC ####[facility] Nnirzglcjs3167 [place] [address]Dr. Ricardo Rocha Potassium [Moles/Vol] 4.8 mmol/L Normal 3.5-5.1 [facility] Comment on above: Performed By: #### C RP, BMP, URIC ####[facility] Fryjvieeev7442 [place] [phone]. Ricardo Rocha Sodium [Moles/Vol] 134 mmol/L Critically low 136-145 Th [facility] Comment on above: Performed By: #### C RP, BMP, URIC ####[facility] Oqoujjmelr[address] [place] [phone]. Ricardo Rocha Urea nitrogen [Mass/Vol] 22.0 mg/dL Critically high 7.0-18.0 [facility] Comment on above: Performed By: #### C RP, BMP, URIC ####[facility] Ierhpujgcn7[address] [place] [address]Dr. Ricardo Rocha Urea nitrogen/Creatinine [Mass ratio] 16.2 mg/mg Normal [facility] Comment on above: Performed By: #### C RP, BMP, URIC ####[facility] Ubroafbkly05[address] [place] [address]Dr. Ricardo Rocha SED RATE [facility]IGN[facility]ITALRENon 2021 SED RATE 95 mm/hr Critically high <=30 [place] Comment on above: Performed By: #### S EDR ####[facility] Wamjvrzysf934[address] [place], [place] [address]Dr. Ricardo Rocha URIC ACID SERUMon 08-03-2022 Urate [Mass/Vol] 4.7 mg/dL Normal 2.6-6.0 [facility] Comment on above: Performed By: #### C RP, BMP, URIC ####[facility] Uiqccusnrn966166 [address] [place], [place] [address]Dr. Ricardo Rocha XR FOOT LT MIN 3 VIEWSon XR FOOT LT MIN 3 VIEWS Normal [facility] PROF CHEM 8 (BAS METB)on Anion gap [Moles/Vol] 13.8 mmol/L Normal [facility] Comment on above: Performed By: #### B MP ####[facility] Uafyjjnfwq5[address] [place] [address]Dr. Ricardo Rocha Calcium [Mass/Vol] 8.9 mg/dL Normal 8.5-10.1 [facility] Comment on above: Performed By: #### B MP ####[facility] Adcsthsphn9[address] [place] [address]Dr. Ricardo Rocha Chloride [Moles/Vol] 101 mmol/L Normal 98-107 [facility] Comment on above: Performed By: #### B MP ####[facility] Aqkcoptogg4262 [place] [address]Dr. Ricardo Rocha CO2 [Moles/Vol] 22.8 mmol/L Normal 21.0-32.0 [facility] Comment on above: Performed By: #### B MP ####[facility] Xptcziqeqw88[address] [place], [place] [address]Dr. Ricardo Rocha Creatinine [Mass/Vol] 1.43 mg/dL Critically high 0.55-1.02 [facility] Comment on above: Performed By: #### B MP ####[facility] Ynculknnva04216[address] [place], [place] [address]Dr. Nanomarcial Aj EGFR-AF BRITISH 45 mL/min/1.73m2 Critically low >=60 [facility] Comment on above: Performed By: #### B MP ####[facility] Tazwcqxana7404[address] [place], [place] [address]Dr. Ricardo Aj EGFR-NON AF BRITISH 37 mL/min/1.73m2 Critically low >=60 [facility] Comment on above: Performed By: #### B MP ####[facility] Gggcjlvhmh966466 [address] [place], [place] [address]Dr. Nanomarcial Aj Glucose [Mass/Vol] 279 mg/dL Critically high 74-106 [facility] Comment on above: Performed By: #### B MP ####[facility] Udhfsbcnqw8626[address] [place], [place] [address]Dr. Ricardo Rocha Potassium [Moles/Vol] 4.6 mmol/L Normal 3.5-5.1 [facility] Comment on above: Performed By: #### B MP ####[facility] Whmnfancby838[address] [place], [place] [address]Dr. Ricardo Rocha Sodium [Moles/Vol] 133 mmol/L Critically low 136-145 Th [facility] Comment on above: Performed By: #### B MP ####[facility] Pazqmwibsg4818[address] [place], [place] [address]Dr. Ricardo Rocha Urea nitrogen [Mass/Vol] 24.0 mg/dL Critically high 7.0-18.0 [facility] Comment on above: Performed By: #### B MP ####[facility] Mhftbagyge2834 [place] [phone]. Ricardo Rocha Urea nitrogen/Creatinine [Mass ratio] 16.8 mg/mg Normal [facility] Comment on above: Performed By: #### B MP ####[facility] Ewlyzyqnvv24[address] [place], [place] [address]Dr. Ricardo Rocha ACID FAST SMEAR AND CXon Acid Fast Culture Negative Normal [facility] Comment on above: Result Comment: No a amilcar fast bacilli isolated after 6 weeks. Performed By: #### A FB ####[facility] Ouemcfemrb9523[address] [place], [place] [address]Dr. Ricardo Rocha Acid Fast Smear Negative Normal [place] Comment on above: Performed By: #### A FB ####[facility] Xtqwuqiffh6[address] [place], [place] [address]Dr. Ricardo Rocha AF[employer] Specimen Processing Direct Inoculation Normal [facility] Comment on above: Performed By: #### A FB ####[facility] Jthewuhvbj4734[address] [place], [place] [address]Dr. Ricardo Rocha AF[employer] Specimen Processing Tissue Grinding Normal [facility] Comment on above: Performed By: #### A FB ####[facility] Apdpklwcll956[address] [place], [place] [address]Dr. Ricardo Rocha FUNGAL CULTUREon 07-11-2022 Fungus (Mycology) Culture Final report Normal [facility] Comment on above: Performed By: #### C XFUN ####[facility] Xzxptyqkof258[address] [place], [place] [address]Dr. Ricardo Rocha Fungus Stain Final report Normal [facility] Comment on above: Performed By: #### C XFUN ####[facility] Kafrxxqeqn984266 [address] [place], [place] [address]Dr. Ricardo Rocha Result 1 Comment Normal [facility] Comment on above: Result Comment: AAYUSH/ Calcofluor preparation: no fungus observed. Performed By: #### C XFUN ####[facility] Micquoixqp8517 [place] [address]Dr. Ricardo Rocha Result Comment: No y east or mold isolated after 4 weeks. PROF CHEM 8 (BAS METB)on Anion gap [Moles/Vol] 15.1 mmol/L Normal [facility] Comment on above: Performed By: #### B MP ####[facility] Jrmrqmcyzk8637[address] [place], [place] [address]Dr. Ricardo Rocha Calcium [Mass/Vol] 9.0 mg/dL Normal 8.5-10.1 [facility] Comment on above: Performed By: #### B MP ####[facility] Onmgtwivpv749866 [address] [place], [place] [address]Dr. Ricardo Rocha Chloride [Moles/Vol] 101 mmol/L Normal 98-107 [facility] Comment on above: Performed By: #### B MP ####[facility] Swxjeakryf9979[address] [place], [place] [address]Dr. Ricardo Rocha CO2 [Moles/Vol] 18.5 mmol/L Critically low 21.0-32.0 [facility] Comment on above: Performed By: #### B MP ####[facility] Fuvpxdjzcp2918[address] [place], [place] [address]Dr. Ricardo Rocha Creatinine [Mass/Vol] 2.05 mg/dL Critically high 0.55-1.02 [facility] Comment on above: Performed By: #### B MP ####[facility] Fmmvfbfvqc864466 [address] [place], [place] [address]Dr. Ricardo Rocha EGFR-AF BRITISH 30 mL/min/1.73m2 Critically low >=60 [facility] Comment on above: Performed By: #### B MP ####[facility] Wbljbskxxn625[address] [place], [place] [address]Dr. Ricardo Rocha EGFR-NON AF BRITISH 24 mL/min/1.73m2 Critically low >=60 [facility] Comment on above: Performed By: #### B MP ####[facility] Epncycxoyd6428 [place] [address]Dr. Ricardo Rocha Glucose [Mass/Vol] 134 mg/dL Critically high 74-106 T [facility] Comment on above: Performed By: #### B MP ####[facility] Njhzaousrv4554[address] [place], [place] [address]Dr. Ricardo Rocha Potassium [Moles/Vol] 5.6 mmol/L Critically high 3.5-5.1 [facility] Comment on above: Performed By: #### B MP ####[facility] Kqxncoqfmv2318[address] [place], [place] [address]Dr. Ricardo Rocha Sodium [Moles/Vol] 129 mmol/L Critically low 136-145 Th [facility] Comment on above: Performed By: #### B MP ####[facility] Dzyzlrejwu932[address] [place], [place] [address]Dr. Ricardo Rocha Urea nitrogen [Mass/Vol] 57.0 mg/dL Critically high 7.0-18.0 [facility] Comment on above: Performed By: #### B MP ####[facility] Huygfagktl9740[address] [place], [place] [address]Dr. Ricardo Rocha Urea nitrogen/Creatinine [Mass ratio] 27.8 mg/mg Normal [facility] Comment on above: Performed By: #### B MP ####[facility] Nwwtvtqzao4850[address] [place], [place] [address]Dr. Ricardo Rocha CBC AUTO DIFFon 07-06-2022 BASO # 0.0 103/ul Normal 0.0-0.1 [facility] Comment on above: Performed By: #### C BC ####[facility] Bhdthuvhzw7598[address] [place], [place] [address]Dr. Ricardo Rocha Basophils/100 WBC (Bld) 0.6 % Normal 0.2-2.0 [facility] Comment on above: Performed By: #### C BC ####[facility] Acmbepuept6574[address] [place], [place] [address]Dr. Ricardo Rocha EO # 0.1 103/ul Normal 0.0-0.7 [facility] Comment on above: Performed By: #### C BC ####[facility] Yepkbacqnf6171 [place] [address]Dr. Ricardo Rocha Eosinophils/100 WBC (Bld) 1.7 % Normal 0.9-7.0 [facility] Comment on above: Performed By: #### C BC ####[facility] Dclakdikpr2732 [place] [address]Dr. Ricardo Rocha Erythrocyte distribution width (RBC) [Ratio] 15.2 % Critically high 11.0-15.0 [facility] Comment on above: Performed By: #### C BC ####[facility] Rfaoekprao8059[address] [place], [place] [address]Dr. Ricardo Rocha Hematocrit (Bld) [Volume fraction] 34.6 % Critically low 36.0-48.0 [facility] Comment on above: Performed By: #### C BC ####[facility] Zttrnyohkz648[address] [place], [place] [address]Dr. Ricardo Rocha Hemoglobin (Bld) [Mass/Vol] 10.5 g/dL Critically low 12.0-16.0 [facility] Comment on above: Performed By: #### C BC ####[facility] Exebocuchr0098[address] [place], [place] [address]Dr. Ricardo Rocha IG # 0.01 10e3/ul Normal 0.00-0.03 [facility] Comment on above: Performed By: #### C BC ####[facility] Sggeehbzxu5726[address] [place], [place] [address]Dr. Ricardo Rocha IG % 0.2 % Normal 0.0-0.5 [facility] Comment on above: Performed By: #### C BC ####[facility] Zwxxeqajnn546[address] [place], [place] [address]Dr. Ricardo Rocha LYMPH # 2.4 103/ul Normal 1.2-3.8 [facility] Comment on above: Performed By: #### C BC ####[facility] Fptrguatmx1157[address] [place], [place] [address]Dr. Ricardo Rocha Lymphocytes/100 WBC (Bld) 44.4 % Normal 20.5-60.0 [facility] Comment on above: Performed By: #### C BC ####[facility] Urihteagqh0263 [place] [address]Dr. Ricardo Rocha MANUAL DIFF REQ NO Normal [place] Comment on above: Performed By: #### C BC ####[facility] Hbhlwmksfm5585 [place] [phone]. Ricardo Rocha MCH (RBC) [Entitic mass] 25.0 pg Critically low 26.7-34.0 [facility] Comment on above: Performed By: #### C BC ####[facility] Xilavugffd1045 [place] [address]Dr. Ricardo Rocha MCHC (RBC) [Mass/Vol] 30.3 g/dL Normal 29.9-35.2 [facility] Comment on above: Performed By: #### C BC ####[facility] Fqwwzkmdzm790[address] [place], [place] [address]Dr. Ricardo Rocha MCV (RBC) [Entitic vol] 82.4 fL Normal 81.0-99.0 [facility] Comment on above: Performed By: #### C BC ####[facility] Qisvlekrmg4359[address] [place], [place] [address]Dr. Ricardo Rocha MONO # 0.3 103/ul Normal 0.3-0.8 [facility] Comment on above: Performed By: #### C BC ####[facility] Dlhanwccgi6788 [place] [address]Dr. Ricardo Rocha Monocytes/100 WBC (Bld) 5.1 % Normal 1.7-12.0 [facility] Comment on above: Performed By: #### C BC ####[facility] Dboqeingyr7057[address] [place], [place] [address]Dr. Ricardo Rocha NEUT # 2.5 103/ul Normal 1.4-6.5 [facility] Comment on above: Performed By: #### C BC ####[facility] Ehddikzhes324[address] [place], [place] [address]Dr. Ricardo Rocha Neutrophils/100 WBC (Bld) 48.0 % Normal 43.0-75.0 [facility] Comment on above: Performed By: #### C BC ####[facility] Ranpldbski3018 [place] [phone]. Ricardo Rocha Platelet mean volume (Bld) [Entitic vol] 10.7 fL Normal 9.5-13.5 [facility] Comment on above: Performed By: #### C BC ####[facility] Ytfxaqfchm6469 [place] [phone]. Ricardo Rocha PLT 261 103/ul Normal 150-450 [facility] Comment on above: Performed By: #### C BC ####[facility] Guuwomjdsk1194 [place] [phone]. Ricardo Rocha RBC 4.20 106/ul Normal 4.20-5.40 [facility] Comment on above: Performed By: #### C BC ####[facility] Qzuhcsgbbt3426 [place] [address]Dr. Ricardo Rocha WBC 5.3 103/ul Normal 4.0-11.0 [facility] Comment on above: Performed By: #### C BC ####[facility] Tojhjnwznt9855 [place] [phone]. Ricardo Rocha GLYCOHEMOGLOBIN A1Con 2021 ADA RECOMMENDATION SEE BELOW Normal [facility] Comment on above: Result Comment: ADA RECOMMENDED LIMIT 4.0 - 6.0 ADA THERAPEUTIC TARGET < 7.0 ACTION SUGGESTED > 7.0 Performed By: #### A 1C ####[facility] Nnolcneofu10[address] [place] [address]Dr. Ricardo Rocha Glucose [Mass/Vol] 289 mg/dL Normal [facility] Comment on above: Performed By: #### A 1C ####[facility] Qdejnieylc3532 [place] [phone] Ricardo Rocha HbA1c (Bld) [Mass fraction] 11.7 % Critically high 4.5-6.2 [facility] [facility] Comment on above: Performed By: #### A 1C ####[facility] Xxbgricgvz[address] [place] [address]DrIrina Ricardo Rocha LIPID PROFILEon 07-06-2022 CHOL-HDL RATIO NORM SEE BELOW Normal [facility] Comment on above: Result Comment: 3.3 - 4.4 LOW RISK 4.4 - 7.1 AVERAGE RISK 7.1 - 11.0 MODERATE RISK >11.0 HIGH RISK Performed By: #### T SH, CMP, LIPID ####[facility] Ejmjdtaovj2[address] [place], [place] [address]Sr. Ricardo Rocha Cholesterol [Mass/Vol] 284 mg/dL Critically high <=200 [facility] Comment on above: Performed By: #### T SH, CMP, LIPID ####[facility] Pxnfkqjzzs5606 [place], [place] [address]Os. Nanolan Rocha Cholesterol in HDL [Mass/Vol] 40 mg/dL Normal 40-60 [facility] Comment on above: Performed By: #### T SH, CMP, LIPID ####[facility] Llawyhtmdk70[address] [place] [phone]. Ricardo Rocha Cholesterol in LDL [Mass/Vol] 167.8 mg/dL Normal [facility] Comment on above: Performed By: #### T SH, CMP, LIPID ####[facility] Tbrgtgihio9193 [place], [place] [address]El. Ricardo Rcoha Cholesterol.total/Ch olesterol in HDL [Mass ratio] 7.1 {ratio} Normal [facility] Comment on above: Performed By: #### T SH, CMP, LIPID ####[facility] Rkfneiktnx45[address] [place] [phone]. Nanolan Rocha HDL NORMAL > or = 60 mg/dl - LO W CARDIOVASCULAR RISK <40 mg/dl - HIGH CARDIOVASCULAR RISK Normal [facility] Comment on above: Performed By: #### T SH, CMP, LIPID ####[facility] Jxojwmnndq9460 [place] [phone]. Ricardo Rocha LDL CALC NORMAL SEE BELOW Normal [facility] Comment on above: Result Comment: <100 mg/dl OPTIMAL 100 - 129 mg/dl NEAR OR ABOVE OPTIMAL 130 - 159 mg/dl BORDERLINE HIGH 160 - 189 mg/dl HIGH >190 mg/dl VERY HIGH Performed By: #### T SH, CMP, LIPID ####[facility] Uuvsuvucrz4[address] [place] [phone]. Ricardo Rocha Triglyceride [Mass/Vol] 381 mg/dL Critically high <=150 [facility] Comment on above: Performed By: #### T SH, CMP, LIPID ####[facility] Xrpbgzzjhe2105 [place] [phone]. Ricardo Rocha VLDL CALC 76.2 mg/dL Normal [facility] Comment on above: Performed By: #### T SH, CMP, LIPID ####[facility] Vlnlwcoxlc9573 [place] [phone]. Ricardo Rocha MICROALBUMIN, RAND URon - mALB <1.3 Normal <=30.0 [facility] Comment on above: Performed By: #### M ALBR ####[facility] Ipastshzql1334 [place] [address]Dr. Ricardo Rocha PROF 14(COMP METB)on 022 Albumin [Mass/Vol] 3.3 g/dL Critically low 3.4-5.0 Th [facility] Comment on above: Performed By: #### T SH, CMP, LIPID ####[facility] Gqdtvrcaav7175 [place] [address]Dr. Ricardo Rocha Albumin/Globulin [Mass ratio] 0.5 {ratio} Normal [facility] Comment on above: Performed By: #### T SH, CMP, LIPID ####[facility] Gacpnfjgyc4124 [place] [address]Dr. Ricardo Rocha ALP [Catalytic activity/Vol] 129 U/L Critically high 46-116 The [facility] Comment on above: Performed By: #### T SH, CMP, LIPID ####[facility] Jzqomuzyqa3536 [place] [phone]. Ricardo Rocha ALT [Catalytic activity/Vol] 22 U/L Normal 14-59 [facility] Comment on above: Performed By: #### T SH, CMP, LIPID ####[facility] Qiuavuglpx3314 [place] [phone]. Ricardo Rocha Anion gap [Moles/Vol] 16.1 mmol/L Normal The [facility] Comment on above: Performed By: #### T SH, CMP, LIPID ####[facility] Quwskpiimg8997 [place] [address]Dr. Ricardo Rocha AST [Catalytic activity/Vol] 22 U/L Normal 15-37 [facility] Comment on above: Performed By: #### T SH, CMP, LIPID ####[facility] Mgwavvmfqh5119 [place] [address]Dr. Ricardo Rocha Bilirubin [Mass/Vol] 0.2 mg/dL Normal 0.2-1.0 [facility] Comment on above: Performed By: #### T SH, CMP, LIPID ####[facility] Cppgwovocy2[address] [place], [place] [address]Dr. Ricardo Rcoha Calcium [Mass/Vol] 9.4 mg/dL Normal 8.5-10.1 [facility] Comment on above: Performed By: #### T SH, CMP, LIPID ####[facility] Jtdwqokgut[address] [place], [place] [address]Dr. Ricardo Rocha Chloride [Moles/Vol] 102 mmol/L Normal 98-107 The [facility] Comment on above: Performed By: #### T SH, CMP, LIPID ####[facility] Cmmwebbave86[address] [place], [place] [address]Dr. Ricardo Rocha CO2 [Moles/Vol] 18.4 mmol/L Critically low 21.0-32.0 [facility] Comment on above: Performed By: #### T SH, CMP, LIPID ####[facility] Sufzbmjhpn5[address] [place], [place] [address]Dr. Ricardo Rocha Creatinine [Mass/Vol] 2.01 mg/dL Critically high 0.55-1.02 [facility] Comment on above: Performed By: #### T SH, CMP, LIPID ####[facility] Zsibzwmnfg608[address] [place], [place] [address]Dr. Ricardo Rocha EGFR-AF BRITISH 30 mL/min/1.73m2 Critically low >=60 The [facility] Comment on above: Performed By: #### T SH, CMP, LIPID ####[facility] Ejycgnaalx88[address] [place] [address]Dr. Ricardo Rocha EGFR-NON AF BRITISH 25 mL/min/1.73m2 Critically low >=60 [facility] Comment on above: Performed By: #### T SH, CMP, LIPID ####[facility] Ykfjwiqcyy0765 [place] [address]Dr. Ricardo Rocha Globulin (S) [Mass/Vol] 6.3 g/dL Normal [facility] Comment on above: Performed By: #### T SH, CMP, LIPID ####[facility] Fmufdedbrf9150 [place] [phone]. Ricardo Rocha Glucose [Mass/Vol] 118 mg/dL Critically high 74-106 [facility] Comment on above: Performed By: #### T SH, CMP, LIPID ####[facility] Molpideygd7469 [place] [address]Dr. Ricardo Rocha Potassium [Moles/Vol] 5.5 mmol/L Critically high 3.5-5.1 [facility] Comment on above: Performed By: #### T SH, CMP, LIPID ####[facility] Bkqoccmmor1094 [place] [address]Dr. Ricardo Rocha Protein [Mass/Vol] 9.6 g/dL Critically high 6.4-8.2 [facility] Comment on above: Performed By: #### T SH, CMP, LIPID ####[facility] Ywaxclwlnm8011 [place] [address]Dr. Ricardo Rocha Sodium [Moles/Vol] 131 mmol/L Critically low 136-[address] [facility] Comment on above: Performed By: #### T SH, CMP, LIPID ####[facility] Ycijykcdcz3870 [place] [address]Dr. Ricardo Rocha Urea nitrogen [Mass/Vol] 45.0 mg/dL Critically high 7.0-18.0 [facility] Comment on above: Performed By: #### T SH, CMP, LIPID ####[facility] Dvadlmivvt2139 [place] [address]Dr. Ricardo Rocha Urea nitrogen/Creatinine [Mass ratio] 22.4 mg/mg Normal The [facility] Comment on above: Performed By: #### T SH, CMP, LIPID ####[facility] Xlaqxzvjpj[address] [place], [place] [address]Dr. Ricardo Rocha TSHon 07-06-2022 TSH 1.178 uIU/mL Normal 0.358-3.740 [facility] Comment on above: Performed By: #### T SH, CMP, LIPID ####[facility] Ypoeywzehy[address] [place], [place] [address]Dr. Ricardo Rocha UA RANDOM W/MICROSCOPICon BACTERIA NONE SEEN Normal NONE SEEN The [facility] Comment on above: Performed By: #### U AMIC ####[facility] Oklqkzqqck66[address] [place], [place] [address]Dr. Ricardo Rocha Bilirubin Ql (U) Negative Normal NEGATIVE [facility] Comment on above: Performed By: #### U AMIC ####[facility] Sutkupglsi0[address] [place], [place] [address]Dr. Ricardo Rocha CAST NONE SEEN Normal NONE SEEN The [facility] Comment on above: Performed By: #### U AMIC ####[facility] Mldhfrmqpv[address] [place], [place] [address]Dr. Ricardo Rocha Clarity (U) CLEAR Normal CLEAR The [facility] Comment on above: Performed By: #### U AMIC ####[facility] Ziwejmzspr37[address] [place], [place] [address]Dr. Ricardo Rocha Color (U) LT. YELLOW Normal YELLOW The [facility] Comment on above: Performed By: #### U AMIC ####[facility] Zsutywjjvn[address] [place], [place] [address]Dr. Ricardo Rocha Crystals LM Nom (Urine sed) NONE SEEN Normal NONE SEEN The [facility] Comment on above: Performed By: #### U AMIC ####[facility] Ahhvzjzssw5[address] [place], [place] [address]Dr. Ricardo Rocha Epithelial cells LM Ql (Urine sed) NONE SEEN Normal NONE SEEN /RARE The [facility] Comment on above: Performed By: #### U AMIC ####[facility] Mlptmsjsbr3914 [place] [address]Dr. Ricardo Rocha Glucose Ql (U) Negative Normal NEGATIVE The [facility] Comment on above: Performed By: #### U AMIC ####[facility] Jaxugjjvch649[address] [place], [place] [address]Dr. Ricardo Rocha Hemoglobin Ql (U) Negative Normal NEGATIVE The [facility] Comment on above: Performed By: #### U AMIC ####[facility] Natneiupil5[address] [place], [place] [address]Dr. Ricardo Aj Ketones Ql (U) Negative Normal NEGATIVE The [facility] Comment on above: Performed By: #### U AMIC ####[facility] Grafffkihl028[address] [place], [place] [address]Dr. Ricardo Rocha LEUKOCYTES Negative Normal NEGATIVE The [facility] Comment on above: Performed By: #### U AMIC ####[facility] Vtugzzjrmy88[address] [place], [place] [address]Dr. Ricardo Rocha MUCOUS NONE SEEN Normal NONE SEEN The [facility] Comment on above: Performed By: #### U AMIC ####[facility] Codszmkufs66[address] [place], [place] [address]Dr. Ricardo Aj Nitrite Ql (U) Negative Normal NEGATIVE The [facility] Comment on above: Performed By: #### U AMIC ####[facility] Lkcvqjadlu59[address] [place], [place] [address]Dr. Ricardo Rocha pH (U) 5.5 [pH] Normal 5-9 The [facility] Comment on above: Performed By: #### U AMIC ####[facility] Hlagkcuait839[address] [place], [place] [address]Dr. Ricardo Rocha RBC NONE SEEN Abnormal 0-2 The [facility] Comment on above: Performed By: #### U AMIC ####[facility] Gypiaaefwh[address] [place], [place] [address]Dr. Ricardo Rocha SPEC GRAVITY 1.020 Normal 1.005-<=1.02 5 The [facility] Comment on above: Performed By: #### U AMIC ####[facility] Thtpwycamk0[address] [place], [place] [address]Dr. Ricardo Rocha UA PROTEIN Negative Normal NEGATIVE/ TRACE The [facility] Comment on above: Performed By: #### U AMIC ####[facility] Jqxfzzueaa7599 [place] [phone]. Ricardo Rocha Urobilinogen Qn (U) 0.2 {Madeleine'U}/dL Normal 0.2 - 1. 0 The [facility] Comment on above: Performed By: #### U AMIC ####[facility] Oxfwlelczp7[address] [place], [place] [address]Dr. Ricardo Rocha WBC NONE SEEN Normal NONE SEEN The [facility] Comment on above: Performed By: #### U AMIC ####[facility] Sfvjhemwsw0898 [place] [address]Dr. Ricardo Rocha CBC W MANUAL DIFFon 06-16-20 22 ATYPICAL LYMPH # Normal [facility] Comment on above: Performed By: #### C BCMAN ####[facility] Eoiwjpywlc[address] [place], [place] [address]Dr. Ricardo Rocha ATYPICAL LYMPH % Normal [facility] Comment on above: Performed By: #### C BCMAN ####[facility] Frtwongkrk[address] [place], [place] [address]Dr. Ricardo Rocha BAND # 0.2 103/ul Normal 0.0-0.3 The [facility] Comment on above: Performed By: #### C BCMAN ####[facility] Sjbxjpfeea86[address] [place], [place] [address]Dr. Ricardo Aj BAND % 2 % Normal 0-5 The [facility] Comment on above: Performed By: #### C BCMAN ####[facility] Kcrmtefifh36[address] [place], [place] [address]Dr. Ricardo Aj BASOM # 0.00 103/ul Normal 0.00-0.10 The [facility] Comment on above: Performed By: #### C BCMAN ####[facility] Rvkusaobws[address] [place], [place] [address]Dr. Ricardo Aj BASOM % 0.0 % Critically low 0.2-2.0 The [facility] Comment on above: Performed By: #### C BCMAN ####[facility] Oscairrzcw6[address] [place] [phone]. Ricardo Rocha BLAST # Normal [facility] Comment on above: Performed By: #### C BCMAN ####[facility] Ckahsbrhtf1139 [place] [phone]. Ricardo Rocha BLAST % Normal [facility] Comment on above: Performed By: #### C BCRED ####[facility] Jpruqrwwab8051 [place] [phone]. Ricardo Rocha CORRECTED WBC Normal 4.0-11.0 [facility] Comment on above: Performed By: #### C BCRED ####[facility] Zpsbylcnhn2040 [place] [address]Dr. Ricardo Rocha EOS # 0.11 103/ul Normal 0.00-0.70 [facility] Comment on above: Performed By: #### C BCRED ####[facility] Gsifssiovi2289 [place] [address]Dr. Ricardo Rocha EOS% 1.0 % Normal 0.9-7.0 [facility] Comment on above: Performed By: #### C BCRED ####[facility] Cstaghcyrd[address] [place], [place] [address]Dr. Ricardo Rocha HCT 24.2 % Critically low 36.0-48.0 [facility] Comment on above: Performed By: #### C BCRED ####[facility] Sihpcnjwyg045[address] [place], [place] [address]Dr. Ricardo Rocha HGB 7.9 g/dl Critically low 12.0-16.0 The [facility] Comment on above: Performed By: #### C BCRED ####[facility] Tgehlugpcu[address] [place], [place] [address]Dr. Ricardo Rocha LYMPHM # 1.81 103/ul Normal 1.20-3.80 The [facility] Comment on above: Performed By: #### C BCRED ####[facility] Acbwsjjesp[address] [place], [place] [address]Dr. Ricardo Rocha LYMPHM% 16.0 % Critically low 20.5-60.0 The [facility] Comment on above: Performed By: #### C DWAINE ####[facility] Iiscqnpxsl8749 [place] [phone]. Ricardo Rocha MCH 25.2 pg Critically low 26.7-34.0 [facility] Comment on above: Performed By: #### C DWAINE ####[facility] Qtagxgagla2181 [place] [phone]. Ricardo Rocha MCHC 32.6 g/dl Normal 29.9-35.2 The [facility] Comment on above: Performed By: #### C DWAINE ####[facility] Vxhhifdnac4671 [place] [phone]. Ricardo Rocha MCV 77.3 fL Critically low 81.0-99.0 [facility] Comment on above: Performed By: #### C DWAINE ####[facility] Jgxfguyfyz9896 [place] [phone]. Ricardo Rocha METAMYELOCYTE # 0.5 103/ul Normal The [facility] Comment on above: Performed By: #### C DWAINE ####[facility] Ebzmkuzetl1846 [place] [phone]. Ricardo Rocha METAMYELOCYTE % 4 % Normal [facility] Comment on above: Performed By: #### C DWAINE ####[facility] Pcilixbmph5561 [place] [phone]. Ricardo Rocha MONOM# 0.45 103/ul Normal 0.30-0.80 The [facility] Comment on above: Performed By: #### C DWAINE ####[facility] Jzollyjurj3203 [place] [phone]. Ricardo Rocha MONOM% 4.0 % Normal 1.7-12.0 The [facility] Comment on above: Performed By: #### C DWAINE ####[facility] Sscfsovgif5347 [place] [phone]. Ricardo Rocha MPV 10.4 fL Normal 9.5-13.5 The [facility] Comment on above: Performed By: #### C DWAINE ####[facility] Ybobfntuwj5206 [place] [phone]. Ricardo Rocha MYELOCYTE # 0.5 103/ul Normal The [facility] Comment on above: Performed By: #### C DWAINE ####[facility] Vawjnzdvep4584 [place] [phone]. Ricardo Rocha MYELOCYTE % 4 % Normal The [facility] Comment on above: Performed By: #### C DWAINE ####[facility] Ricacvxkpr7445 [place] [phone]. Ricardo Rocha NRBC Normal The [facility] Comment on above: Performed By: #### C DWAINE ####[facility] Ybkehztrbc8460 [place] [phone]. Ricardo Rocha PLT 325 103/ul Normal 150-450 The [facility] Comment on above: Performed By: #### C DWAINE ####[facility] Izwitajokh2488 [place] [phone]. Ricardo Rocha RBC 3.13 106/ul Critically low 4.20-5.40 The [facility] Comment on above: Performed By: #### C DWAINE ####[facility] Zfnosbitti9109 [place] [phone]. Ricardo Rocha RDW 13.7 % Normal 11.0-15.0 The [facility] Comment on above: Performed By: #### C DWAINE ####[facility] Spyngshhsp7413 [place] [phone]. Ricardo Rocha SEG # 7.80 103/ul Critically high 1.40-6.50 [facility] Comment on above: Performed By: #### C DWAINE ####[facility] Zqhlplbahk9139 [place] [phone]. Ricardo Rocha SEG % 69.0 % Normal 43.0-75.0 The [facility] Comment on above: Performed By: #### C DWAINE ####[facility] Gfuexhnypw7347 [place] [phone]. Ricardo Rocha WBC 11.3 103/ul Critically high 4.0-11.0 [facility] Comment on above: Performed By: #### C DWAINE ####[facility] Hcrxwqbzxf2725 [place] [address]Dr. Ricardo Rocha PROF 14(COMP METB)on 022 Albumin [Mass/Vol] 1.7 g/dL Critically low 3.4-5.0 [facility] Comment on above: Performed By: #### C MP ####[facility] Qluqtdklcc6617 [place] [address]Dr. Ricardo Rocha Albumin/Globulin [Mass ratio] 0.4 {ratio} Normal [facility] Comment on above: Performed By: #### C MP ####[facility] Aiuunxnlmt24[address] [place], [place] [address]Dr. Ricardo Rocha ALP [Catalytic activity/Vol] 174 U/L Critically high 46-116 [facility] Comment on above: Performed By: #### C MP ####[facility] Zujkqswarp350[address] [place], [place] [address]Dr. Ricardo Rocha ALT [Catalytic activity/Vol] 14 U/L Normal 14-59 [facility] Comment on above: Performed By: #### C MP ####[facility] Fbfkufjysw718[address] [place], [place] [address]Dr. Ricardo Rocha Anion gap [Moles/Vol] 10.8 mmol/L Normal [facility] Comment on above: Performed By: #### C MP ####[facility] Bynzkhxves759[address] [place], [place] [address]Dr. Ricardo Rocha AST [Catalytic activity/Vol] 13 U/L Critically low 15-37 [facility] Comment on above: Performed By: #### C MP ####[facility] Hennckqvjn294[address] [place], [place] [address]Dr. Ricardo Rocha Bilirubin [Mass/Vol] 0.3 mg/dL Normal 0.2-1.0 [facility] Comment on above: Performed By: #### C MP ####[facility] Gefvgibtnb[address] [place], [place] [address]Dr. Ricardo Rocha Calcium [Mass/Vol] 8.2 mg/dL Critically low 8.5-10.1 [facility] Comment on above: Performed By: #### C MP ####[facility] Wayruucdqf6551 [place] [address]Dr. Ricardo Rocha Chloride [Moles/Vol] 104 mmol/L Normal 98-107 [facility] Comment on above: Performed By: #### C MP ####[facility] Znozcmhrmd7240 [place] [address]Dr. Ricardo Rocha CO2 [Moles/Vol] 22.4 mmol/L Normal 21.0-32.0 [facility] Comment on above: Performed By: #### C MP ####[facility] Dvecgbdhkh02[address] [place], [place] [address]Dr. Ricardo Rocha Creatinine [Mass/Vol] 1.29 mg/dL Critically high 0.55-1.02 [facility] Comment on above: Performed By: #### C MP ####[facility] Tyomjyqqvh3827[address] [place], [place] [address]Dr. Ricardo Rocha EGFR-AF BRITISH 50 mL/min/1.73m2 Critically low >=60 [facility] Comment on above: Performed By: #### C MP ####[facility] Tgwjwlygev[address] [place], [place] [address]Dr. Ricardo Rocha EGFR-NON AF BRITISH 42 mL/min/1.73m2 Critically low >=60 [facility] Comment on above: Performed By: #### C MP ####[facility] Glvhkpkgdw5465[address] [place], [place] [address]Dr. Ricardo Rocha Globulin (S) [Mass/Vol] 4.8 g/dL Normal [facility] Comment on above: Performed By: #### C MP ####[facility] Dlsjwgqrfj768[address] [place], [place] [address]Dr. Ricardo Rocha Glucose [Mass/Vol] 262 mg/dL Critically high 74-106 T [facility] Comment on above: Performed By: #### C MP ####[facility] Aatesdwnfl6[address] [place], [place] [address]Dr. Ricardo Rocha Potassium [Moles/Vol] 3.2 mmol/L Critically low 3.5-5.1 [facility] Comment on above: Performed By: #### C MP ####[facility] Ifxvhbftff7947 [place] [address]Dr. Ricardo Rocha Protein [Mass/Vol] 6.5 g/dL Normal 6.4-8.2 [facility] Comment on above: Performed By: #### C MP ####[facility] Ntaxjzaoyw30[address] [place], [place] [address]Dr. Ricardo Rocha Sodium [Moles/Vol] 134 mmol/L Critically low 136-145 Th [facility] Comment on above: Performed By: #### C MP ####[facility] Wdwvnripso057[address] [place], [place] [address]Dr. Ricardo Rocha Urea nitrogen [Mass/Vol] 20.0 mg/dL Critically high 7.0-18.0 [facility] Comment on above: Performed By: #### C MP ####[facility] Tixqtgomgp7[address] [place], [place] [address]Dr. Ricardo Rocha Urea nitrogen/Creatinine [Mass ratio] 15.5 mg/mg Normal [facility] Comment on above: Performed By: #### C MP ####[facility] Uzmdfpcnry[address] [place], [place] [address]Dr. Ricardo Rocha CBC AUTO DIFFon 06-15-2022 BASO # 0.1 103/ul Normal 0.0-0.1 [facility] Comment on above: Performed By: #### C BC ####[facility] Nxsihurnkb85[address] [place], [place] [address]Dr. Ricardo Aj Basophils/100 WBC (Bld) 0.7 % Normal 0.2-2.0 [facility] Comment on above: Performed By: #### C BC ####[facility] Jtjuxrkazr[address] [place], [place] [address]Dr. Ricardo Rocha EO # 0.1 103/ul Normal 0.0-0.7 [facility] Comment on above: Performed By: #### C BC ####[facility] Snohlp[address] [place], [place] [address]Dr. Ricardo Aj Eosinophils/100 WBC (Bld) 0.7 % Critically low 0.9-7.0 [facility] Comment on above: Performed By: #### C BC ####[facility] Jppswipobs[address] [place] [address]Dr. Ricardo Rocha Erythrocyte distribution width (RBC) [Ratio] 13.7 % Normal 11.0-15.0 [facility] Comment on above: Performed By: #### C BC ####[facility] Jjwwkkmjfe9[address] [place] [address]Dr. Ricardo Rocha Hematocrit (Bld) [Volume fraction] 26.7 % Critically low 36.0-48.0 [facility] Comment on above: Performed By: #### C BC ####[facility] Bnaltqorng387[address] [place], [place] [address]Dr. Ricardo Rocha Hemoglobin (Bld) [Mass/Vol] 8.4 g/dL Critically low 12.0-16.0 [facility] Comment on above: Performed By: #### C BC ####[facility] Pqbpexoyxf4[address] [place], [place] [address]DrIrina Ricardo Rocha IG # 0.83 10e3/ul Critically high 0.00-0.03 [facility] Comment on above: Performed By: #### C BC ####[facility] Apseuuncrl58[address] [place], [place] [address]Dr. Ricardo Rocha IG % 6.2 % Critically high 0.0-0.5 [place] Comment on above: Performed By: #### C BC ####[facility] Doeyhjawol7[address] [place], [place] [address]DrIrina Ricardo Rocha LYMPH # 1.3 103/ul Normal 1.2-3.8 The [facility] Comment on above: Performed By: #### C BC ####[facility] Nvkhnmtazs08[address] [place], [place] [address]DrIrina Ricardo Rocha Lymphocytes/100 WBC (Bld) 9.6 % Critically low 20.5-60.0 [facility] Comment on above: Performed By: #### C BC ####[facility] Ftasydfqyj64[address] [place], [place] [address]DrIrina Ricardo Aj MANUAL DIFF REQ NO Normal The [facility] Comment on above: Performed By: #### C BC ####[facility] Cbpoczlrgf78[address] [place] [phone] Rocha MCH (RBC) [Entitic mass] 25.1 pg Critically low 26.7-34.0 The [facility] Comment on above: Performed By: #### C BC ####[facility] Jdziirzzli4338 [place] [address]DrIrina Rocha MCHC (RBC) [Mass/Vol] 31.5 g/dL Normal 29.9-35.2 The [facility] Comment on above: Performed By: #### C BC ####[facility] Hrnxaskodl9413 [place] [address]DrIrina Rocha MCV (RBC) [Entitic vol] 79.7 fL Critically low 81.0-99.0 The [facility] Comment on above: Performed By: #### C BC ####[facility] Hmhxjgymda585[address] [place], [place] [address]DrIrina Rocha MONO # 1.0 103/ul Critically high 0.3-0.8 The [facility] Comment on above: Performed By: #### C BC ####[facility] Awpdxafxay936[address] [place], [place] [address]DrIrina Rocha Monocytes/100 WBC (Bld) 7.3 % Normal 1.7-12.0 The [facility] Comment on above: Performed By: #### C BC ####[facility] Frhxhehgqh7587[address] [place], [place] [address]DrIrina Rocha NEUT # 10.2 103/ul Critically high 1.4-6.5 The [facility] Comment on above: Performed By: #### C BC ####[facility] Nnfxnykyzr[address] [place] [address]DrIrina Rocha Neutrophils/100 WBC (Bld) 75.5 % Critically high 43.0-75.0 The [facility] Comment on above: Performed By: #### C BC ####[facility] Ebxmvxbwya707[address] [place], [place] [address]DrIrina Rocha Platelet mean volume (Bld) [Entitic vol] 11.8 fL Normal 9.5-13.5 [facility] Comment on above: Performed By: #### C BC ####[facility] Wrjyesvrtq8[address] [place] [address]Dr. Ricardo Rocha PLT 208 103/ul Normal 150-450 [facility] Comment on above: Performed By: #### C BC ####[facility] Eokshmfpgj9391 [place] [phone]. Ricardo Rocha RBC 3.35 106/ul Critically low 4.20-5.40 [place] Comment on above: Performed By: #### C BC ####[facility] Dubaqaqwtr[address] [place] [address]Dr. Ricardo Rocha WBC 13.5 103/ul Critically high 4.0-11.0 [facility] Comment on above: Performed By: #### C BC ####[facility] Fvhacpobrm13[address] [place] [address]Dr. Ricardo Rocha CULTURE BLOODon 06-15-2022 Microscopic examination of blood, culture Culture Observations: NO GROWTH AT 5 DAYS Normal [facility] Comment on above: Performed By: #### B LDCX2 ####[facility] Cspqdickbr77[address] [place] [address]Dr. Ricardo Rocha Microscopic examination of blood, culture Culture Observations: NO GROWTH AT 5 DAYS Normal [facility] Comment on above: Performed By: #### B LDCX1 ####[facility] Ukpedwftgi27[address] [place], [place] [address]Dr. Ricardo Rocha [facility]22 SARS-CoV-2 (COVID-19) RNA ADRIEL+probe Ql (Unsp spec) Not detected Normal NOT DETECTED The [facility] Comment on above: Result Comment: When [...] for this test is supported by the [employer] of Health and Human Service's declaration that [...] be used). Performed By: #### C VDTBH ####[facility] Brfbswueff88[address] [place] [address]Dr. Ricardo Rocha POINT OF CARE GLUCOSEon 05-22 Glucose [Mass/Vol] 366 mg/dL Critically high 74-106 [facility] Comment on above: Performed By: #### P OCGLUC ####[facility] Ekjdpwxasa5[address] [place], [place] [address]Dr. Ricardo Rocha Glucose [Mass/Vol] 229 mg/dL Critically high 74-106 [facility] Comment on above: Performed By: #### P OCGLUC ####[facility] Cakwnecgtp9013 [place] [address]Dr. Ricardo Rocha Glucose [Mass/Vol] 258 mg/dL Critically high 74-106 [facility] Comment on above: Performed By: #### P OCGLUC ####[facility] Owpbxpwvjb7963 [place] [address]Dr. Ricardo Rocha PROF 14(COMP METB)on 022 Albumin [Mass/Vol] 1.8 g/dL Critically low 3.4-5.0 Th [facility] Comment on above: Performed By: #### C MP ####[facility] Irofofrcto8[address] [place] [address]Dr. Ricardo Rocha Albumin/Globulin [Mass ratio] 0.4 {ratio} Normal [facility] Comment on above: Performed By: #### C MP ####[facility] Zyebywbbts6115 [place] [address]Dr. Ricardo Rocha ALP [Catalytic activity/Vol] 196 U/L Critically high 46-116 [facility] Comment on above: Performed By: #### C MP ####[facility] Hexeamvvjz5048 [place] [phone]. Ricardo Aj ALT [Catalytic activity/Vol] 18 U/L Normal 14-59 [facility] Comment on above: Performed By: #### C MP ####[facility] Plckuwhpau2349 [place] [phone]. Ricardo Aj Anion gap [Moles/Vol] 16.3 mmol/L Normal [facility] Comment on above: Performed By: #### C MP ####[facility] Qnkomjqxgp1682 [place] [address]Dr. Ricardo Aj AST [Catalytic activity/Vol] 22 U/L Normal 15-37 [facility] Comment on above: Performed By: #### C MP ####[facility] Dogqvkowpt72[address] [place] [address]Dr. Ricardo Rocha Bilirubin [Mass/Vol] 0.4 mg/dL Normal 0.2-1.0 [facility] Comment on above: Performed By: #### C MP ####[facility] Extvwpfwjf3386 [place] [address]Dr. Ricardo Rocha Calcium [Mass/Vol] 8.2 mg/dL Critically low 8.5-10.1 Th [facility] Comment on above: Performed By: #### C MP ####[facility] Wjyqcxxydz17[address] [place], [place] [address]Dr. Ricardo Rocha Chloride [Moles/Vol] 103 mmol/L Normal 98-107 The [facility] Comment on above: Performed By: #### C MP ####[facility] Xxoivpyhpb5335 [place] [address]Dr. Ricardo Rocha CO2 [Moles/Vol] 19.0 mmol/L Critically low 21.0-32.0 The [facility] Comment on above: Performed By: #### C MP ####[facility] Yhhpdkpakx2248 [place] [address]Dr. Ricardo Rocha Creatinine [Mass/Vol] 1.32 mg/dL Critically high 0.55-1.02 [facility] Comment on above: Performed By: #### C MP ####[facility] Mbmqgrouxb6522 [place], [place] [address]Oc. Ricardo Rocha EGFR-AF BRITISH 49 mL/min/1.73m2 Critically low >=60 [facility] Comment on above: Performed By: #### C MP ####[facility] Zhaqggbkoo50[address] [place] [phone]. iRcardo Aj EGFR-NON AF BRITISH 41 mL/min/1.73m2 Critically low >=60 [facility] Comment on above: Performed By: #### C MP ####[facility] Oprffxrsom0753 [place] [phone]. Ricardo Aj Globulin (S) [Mass/Vol] 5.0 g/dL Normal [facility] Comment on above: Performed By: #### C MP ####[facility] Pslryfcyqe4931 [place] [phone]. Nanomarcial Aj Glucose [Mass/Vol] 228 mg/dL Critically high 74-106 T [facility] Comment on above: Performed By: #### C MP ####[facility] Ktqxiostan4888 [place] [phone]. Ricardo Aj Potassium [Moles/Vol] 3.3 mmol/L Critically low 3.5-5.1 [facility] Comment on above: Performed By: #### C MP ####[facility] Iixuaghian4988 [place] [phone]. Nanomarcial Aj Protein [Mass/Vol] 6.8 g/dL Normal 6.4-8.2 [facility] Comment on above: Performed By: #### C MP ####[facility] Qskdmjlcie1550 [place] [phone]. Ricardo Aj Sodium [Moles/Vol] 135 mmol/L Critically low 136-145 Th [facility] Comment on above: Performed By: #### C MP ####[facility] Csqrtegsha0247 [place] [phone]. Ricardo Rocha Urea nitrogen [Mass/Vol] 23.0 mg/dL Critically high 7.0-18.0 [facility] Comment on above: Performed By: #### C MP ####[facility] Qbzitwscbc807[address] [place], [place] [address]Dr. Ricardo Rocha Urea nitrogen/Creatinine [Mass ratio] 17.4 mg/mg Normal [facility] Comment on above: Performed By: #### C MP ####[facility] Yvtzcmmymu727[address] [place], [place] [address]Dr. Nanomarcial Rocha UA (CLEAN/CATCH) LAG SCREWER/MICRO I F IND.on 06-15-2022 Bilirubin Ql (U) Negative Normal NEGATIVE [facility] Comment on above: Performed By: #### U MICRO, UACSIND ####[facility] Bysddgztub6[address] [place], [place] [address]Dr. Ricardo Rocha Clarity (U) CLEAR Normal CLEAR [facility] Comment on above: Performed By: #### U MICRO, UACSIND ####[facility] Cypmvufxbc8332[address] [place], [place] [address]Dr. Ricardo Rocha Color (U) LT. YELLOW Normal YELLOW [facility] Comment on above: Performed By: #### U MICRO, UACSIND ####[facility] Mrxmjfalje4065[address] [place], [place] [address]Dr. Ricardo Rocha Glucose Ql (U) 250 mg/dl Abnormal NEGATIVE The [facility] Comment on above: Performed By: #### U MICRO, UACSIND ####[facility] Oyagshpttu17[address] [place], [place] [address]Dr. Ricardo Rocha Hemoglobin Ql (U) TRACE-LYSED Abnormal NEGATIVE The [facility] Comment on above: Performed By: #### U MICRO, UACSIND ####[facility] Igvhdrobcp868366 [address] [place], [place] [address]Dr. Ricardo Rocha Ketones Ql (U) 15 mg/dl Abnormal NEGATIVE The [facility] Comment on above: Performed By: #### U MICRO, UACSIND ####[facility] Kedtjvrfnd28[address] [place], [place] [address]Dr. Ricardo Rocha LEUKOCYTES Negative Normal NEGATIVE [facility] Comment on above: Performed By: #### U MICRO, UACSIND ####[facility] Xlcobfmokf6313 [place] [address]Dr. Ricardo Rocha Nitrite Ql (U) Negative Normal NEGATIVE The [facility] Comment on above: Performed By: #### U MICRO, UACSIND ####[facility] Yqvmbkepmg3249 [place] [address]Dr. Ricardo Rocha pH (U) 6.0 [pH] Normal 5-9 The [facility] Comment on above: Performed By: #### U MICRO, UACSIND ####[facility] Oahdicpqak3480 [place] [address]Dr. Nanomarcial Rocha SPEC GRAVITY 1.010 Normal 1.005-<=1.02 5 The [facility] Comment on above: Performed By: #### U MICRO, UACSIND ####[facility] Zianiwgrgg6067 [place] [address]Dr. Ricardo Rocha UA PROTEIN Negative Normal NEGATIVE/ TRACE The [facility] Comment on above: Performed By: #### U MICRO, UACSIND ####[facility] Ssvkeqfnvc440[address] [place], [place] [address]Dr. Nanomarcial Rocha UR MICRO IND INDICATED Normal The [facility] Comment on above: Performed By: #### U MICRO, UACSIND ####[facility] Huurepaxoy924[address] [place], [place] [address]Dr. Ricardo Aj Urobilinogen Qn (U) 0.2 {Madeleine'U}/dL Normal 0.2 - 1. 0 The [facility] Comment on above: Performed By: #### U MICRO, UACSIND ####[facility] Unwopnvlyg1717 [place] [address]Dr. Nanomarcial Rocha URINE MICROSCOPIC ONLYon BACTERIA NONE SEEN Normal NONE SEEN The [facility] Comment on above: Performed By: #### U MICRO, UACSIND ####[facility] Ehdeqwgqxx7579[address] [place], [place] [address]Dr. Ricardo Rocha Bacteria identified Cx Nom (U) NOT INDICATED Normal The [facility] Comment on above: Performed By: #### U MICRO, UACSIND ####[facility] Puqqgdumdi8403 [place] [address]Dr. Ricardo Rocha CAST NONE SEEN Normal NONE SEEN The [facility] Comment on above: Performed By: #### U MICRO, UACSIND ####[facility] Jxlwydloxq8896 [place] [address]Dr. Ricardo Rocha Crystals LM Nom (Urine sed) NONE SEEN Normal NONE SEEN The [facility] Comment on above: Performed By: #### U MICRO, UACSIND ####[facility] Gzietcxedr775[address] [place], [place] [address]Dr. Ricardo Rocha Epithelial cells LM Ql (Urine sed) FEW Abnormal NONE SEEN /RARE The [facility] Comment on above: Performed By: #### U MICRO, UACSIND ####[facility] Crinjeixuz28[address] [place], [place] [address]Dr. Ricardo Rocha MUCOUS NONE SEEN Normal NONE SEEN The [facility] Comment on above: Performed By: #### U MICRO, UACSIND ####[facility] Pwfwjrnafe4817[address] [place], [place] [address]Dr. Ricardo Rocha RBC 2-5 Abnormal 0-2 The [facility] Comment on above: Performed By: #### U MICRO, UACSIND ####[facility] Nqafwggtya9[address] [place], [place] [address]Dr. Ricardo Rocha WBC 2-5 Abnormal NONE SEEN The [facility] Comment on above: Performed By: #### U MICRO, UACSIND ####[facility] Eowpgyfscx380[address] [place], [place] [address]Dr. Ricardo Rocha YEAST PRESENT Abnormal NONE SEEN The [facility] Comment on above: Performed By: #### U MICRO, UACSIND ####[facility] Zhqxnvltnp4307[address] [place], [place] [address]Dr. Ricardo Rocha CBC AUTO DIFFon 06-14-2022 BASO # 0.0 103/ul Normal 0.0-0.1 The [facility] Comment on above: Performed By: #### C BC ####[facility] Afzypukdlj028[address] [place], [place] [address]Dr. Ricardo Rocha Basophils/100 WBC (Bld) 0.4 % Normal 0.2-2.0 The [facility] Comment on above: Performed By: #### C BC ####[facility] Qrbcjfhnvm4969 [place] [phone]. Ricardo Rocha EO # 0.0 103/ul Normal 0.0-0.7 The [facility] Comment on above: Performed By: #### C BC ####[facility] Ofbovhzdck8976 [place] [phone]. Ricardo Rocha Eosinophils/100 WBC (Bld) 0.4 % Critically low 0.9-7.0 [facility] Comment on above: Performed By: #### C BC ####[facility] Hiwqkrbgds48[address] [place], [place] [address]Dr. Ricardo Rocha Erythrocyte distribution width (RBC) [Ratio] 13.8 % Normal 11.0-15.0 [facility] Comment on above: Performed By: #### C BC ####[facility] Gygjoltrmf99216[address] [place], [place] [address]Dr. Ricardo Rocha Hematocrit (Bld) [Volume fraction] 26.2 % Critically low 36.0-48.0 [facility] Comment on above: Performed By: #### C BC ####[facility] Wknvahqlye89[address] [place], [place] [address]Dr. Ricardo Rocha Hemoglobin (Bld) [Mass/Vol] 8.3 g/dL Critically low 12.0-16.0 The [facility] Comment on above: Performed By: #### C BC ####[facility] Fjydjzvasm1564[address] [place], [place] [address]Dr. Ricardo Rocha IG # 0.24 10e3/ul Critically high 0.00-0.03 [facility] Comment on above: Performed By: #### C BC ####[facility] Yndouwdzru6250[address] [place], [place] [address]Dr. Nanomarcial Rocha IG % 2.3 % Critically high 0.0-0.5 The [facility] Comment on above: Performed By: #### C BC ####[facility] Hzafwhgzdu190[address] [place], [place] [address]DrIrina Rocha LYMPH # 1.1 103/ul Critically low 1.2-3.8 [facility] Comment on above: Performed By: #### C BC ####[facility] Afcrvwkrpl1371 [place] [address]Dr. Ricardo Rocha Lymphocytes/100 WBC (Bld) 10.2 % Critically low 20.5-60.0 [facility] Comment on above: Performed By: #### C BC ####[facility] Dkxntykudb3204 [place] [address]DrIrina Rocha MANUAL DIFF REQ NO Normal [place] Comment on above: Performed By: #### C BC ####[facility] Rnbxesjici8353 [place] [phone]. Ricardo Rocha MCH (RBC) [Entitic mass] 25.5 pg Critically low 26.7-34.0 [facility] Comment on above: Performed By: #### C BC ####[facility] Hxzuedclsh5733[address] [place], [place] [address]Dr. Ricardo Rocha MCHC (RBC) [Mass/Vol] 31.7 g/dL Normal 29.9-35.2 [facility] Comment on above: Performed By: #### C BC ####[facility] Eoagxnsevw7347[address] [place], [place] [address]DrIrina Rocha MCV (RBC) [Entitic vol] 80.6 fL Critically low 81.0-99.0 [facility] Comment on above: Performed By: #### C BC ####[facility] Eptlcgpquu6499 [place] [address]Dr. Ricardo Rocha MONO # 0.7 103/ul Normal 0.3-0.8 [facility] Comment on above: Performed By: #### C BC ####[facility] Rcuzxlxpjs066[address] [place], [place] [address]DrIrina Rocha Monocytes/100 WBC (Bld) 6.7 % Normal 1.7-12.0 [facility] Comment on above: Performed By: #### C BC ####[facility] Metsqbetuk1645[address] [place], [place] [address]DrIrina Rocha NEUT # 8.5 103/ul Critically high 1.4-6.5 [place] Comment on above: Performed By: #### C BC ####[facility] Yhoyoallyy2415 [place] [address]Dr. Ricardo Rocha Neutrophils/100 WBC (Bld) 80.0 % Critically high 43.0-75.0 [facility] Comment on above: Performed By: #### C BC ####[facility] Nimdkogvbf2975 [place] [address]Dr. Ricardo Rocha Platelet mean volume (Bld) [Entitic vol] 12.1 fL Normal 9.5-13.5 [facility] Comment on above: Performed By: #### C BC ####[facility] Uefoxusdlb6415 [place] [address]Dr. Ricardo Rocha PLT 173 103/ul Normal 150-450 [facility] Comment on above: Performed By: #### C BC ####[facility] Jaqmhykvtg3386 [place] [address]Dr. Ricardo Aj RBC 3.25 106/ul Critically low 4.20-5.40 [place] Comment on above: Performed By: #### C BC ####[facility] Dxaeyfcmxv4[address] [place], [place] [address]Dr. Ricardo Rocha WBC 10.6 103/ul Normal 4.0-11.0 [facility] Comment on above: Performed By: #### C BC ####[facility] Yuewwlfscg1522 [place] [phone]. Ricardo Aj POINT OF CARE GLUCOSEon 10-2 Glucose [Mass/Vol] 237 mg/dL Critically high 74-106 [facility] Comment on above: Performed By: #### P OCGLUC ####[facility] Lfuvgpkflb4735[address] [place], [place] [address]Dr. Nanomarcial Aj Glucose [Mass/Vol] 296 mg/dL Critically high 74-106 [facility] Comment on above: Performed By: #### P OCGLUC ####[facility] Jyjbpkijky99[address] [place], [place] [address]Dr. Nanomarcial Aj Glucose [Mass/Vol] 406 mg/dL Critically high 74-106 [facility] Comment on above: Performed By: #### P OCGLUC ####[facility] Wovxkyzogs0688 [place] [address]Dr. Ricardo Rocha Glucose [Mass/Vol] 447 mg/dL Critically high 74-106 [facility] Comment on above: Performed By: #### P OCGLUC ####[facility] Bgfgvfzixw7658 [place] [address]Dr. Ricardo Rocha Glucose [Mass/Vol] 319 mg/dL Critically high 74-106 [facility] Comment on above: Performed By: #### P OCGLUC ####[facility] Yvqzubaspo3041 [place] [address]Dr. Ricardo Rocha PROF 14(COMP METB)on 022 Albumin [Mass/Vol] 1.6 g/dL Critically low 3.4-5.[address] [facility] Comment on above: Performed By: #### C MP ####[facility] Dcfytocljk679[address] [place], [place] [address]Dr. Ricardo Rocha Albumin/Globulin [Mass ratio] 0.3 {ratio} Normal [facility] Comment on above: Performed By: #### C MP ####[facility] Vqpadslgry67[address] [place], [place] [address]Dr. Rciardo Rocha ALP [Catalytic activity/Vol] 201 U/L Critically high 46-116 [facility] Comment on above: Performed By: #### C MP ####[facility] Lfsdfsfdct025[address] [place], [place] [address]Dr. Ricardo Rocha ALT [Catalytic activity/Vol] 23 U/L Normal 14-59 [facility] Comment on above: Performed By: #### C MP ####[facility] Xyfypionef025[address] [place], [place] [address]Dr. Ricardo Rocha Anion gap [Moles/Vol] 16.0 mmol/L Normal [facility] Comment on above: Performed By: #### C MP ####[facility] Shfcsssgpy493[address] [place], [place] [address]Dr. Ricardo Rocha AST [Catalytic activity/Vol] 21 U/L Normal 15-37 [facility] Comment on above: Performed By: #### C MP ####[facility] Ybfddjlgcl0402 [place] [address]Dr. Ricardo Aj Bilirubin [Mass/Vol] 0.4 mg/dL Normal 0.2-1.0 [facility] Comment on above: Performed By: #### C MP ####[facility] Xsxxlrcwtb217[address] [place], [place] [address]Dr. Ricardo Rocha Calcium [Mass/Vol] 7.6 mg/dL Critically low 8.5-10.1 Th e [facility] Comment on above: Performed By: #### C MP ####[facility] Twqkzrmcvw4[address] [place], [place] [address]Dr. Ricardo Rocha Chloride [Moles/Vol] 105 mmol/L Normal 98-107 [facility] Comment on above: Performed By: #### C MP ####[facility] Iwsnntffke910[address] [place], [place] [address]Dr. Ricardo Rocha CO2 [Moles/Vol] 17.3 mmol/L Critically low 21.0-32.0 [facility] Comment on above: Performed By: #### C MP ####[facility] Xeeictcggc065[address] [place], [place] [address]Dr. Ricardo Rocha Creatinine [Mass/Vol] 1.54 mg/dL Critically high 0.55-1.02 [facility] Comment on above: Performed By: #### C MP ####[facility] Tpogdguoub549[address] [place], [place] [address]Dr. Ricardo Rocha EGFR-AF BRITISH 41 mL/min/1.73m2 Critically low >=60 The [facility] Comment on above: Performed By: #### C MP ####[facility] Alrgwkplrv466[address] [place], [place] [address]Dr. Ricardo Rocha EGFR-NON AF BRITISH 34 mL/min/1.73m2 Critically low >=60 [facility] Comment on above: Performed By: #### C MP ####[facility] Cqkavdbmht5620[address] [place], [place] [address]Dr. Ricardo Rocha Globulin (S) [Mass/Vol] 4.7 g/dL Normal [facility] Comment on above: Performed By: #### C MP ####[facility] Rrjyccklht3874[address] [place], [place] [address]Dr. Ricardo Rocha Glucose [Mass/Vol] 277 mg/dL Critically high 74-106 T [facility] Comment on above: Performed By: #### C MP ####[facility] Jookqxxnnh6554[address] [place], [place] [address]Dr. Ricardo Rocha Potassium [Moles/Vol] 3.3 mmol/L Critically low 3.5-5.1 [facility] Comment on above: Performed By: #### C MP ####[facility] Qpswlytkro9535[address] [place], [place] [address]Dr. Ricardo Rocha Protein [Mass/Vol] 6.3 g/dL Critically low 6.4-8.2 Th [facility] Comment on above: Performed By: #### C MP ####[facility] Ybbiwbjtqz70216[address] [place], [place] [address]Dr. Ricardo Rocha Sodium [Moles/Vol] 135 mmol/L Critically low 136-145 Th [facility] Comment on above: Performed By: #### C MP ####[facility] Ftfzzgzqem300466 [address] [place], [place] [address]Dr. Ricardo Rocha Urea nitrogen [Mass/Vol] 29.0 mg/dL Critically high 7.0-18.0 [facility] Comment on above: Performed By: #### C MP ####[facility] Airjugpllh608366 [address] [place], [place] [address]Dr. Ricardo Rocha Urea nitrogen/Creatinine [Mass ratio] 18.8 mg/mg Normal [facility] Comment on above: Performed By: #### C MP ####[facility] Xrimgkpclk426966 [address] [place], [place] [address]Dr. Ricardo Rocha CBC AUTO DIFFon 06-13-2022 BASO # 0.0 103/ul Normal 0.0-0.1 [facility] Comment on above: Performed By: #### C BC ####[facility] Lmxhxksvnx212[address] [place], [place] [address]Dr. Ricardo Rocha Basophils/100 WBC (Bld) 0.2 % Normal 0.2-2.0 The [facility] Comment on above: Performed By: #### C BC ####[facility] Thorqhvyqf[address] [place] [address]Dr. Ricardo Rocha EO # 0.1 103/ul Normal 0.0-0.7 The [facility] Comment on above: Performed By: #### C BC ####[facility] Pmkqxrrstm00[address] [place] [address]Dr. Ricardo Rocha Eosinophils/100 WBC (Bld) 0.6 % Critically low 0.9-7.0 The [facility] Comment on above: Performed By: #### C BC ####[facility] Ocjbfahxtv7407[address] [place], [place] [address]Dr. Ricardo Rocha Erythrocyte distribution width (RBC) [Ratio] 14.2 % Normal 11.0-15.0 The [facility] Comment on above: Performed By: #### C BC ####[facility] Ugfdnowvvm668[address] [place], [place] [address]Dr. Ricardo Rocha Hematocrit (Bld) [Volume fraction] 27.9 % Critically low 36.0-48.0 The [facility] Comment on above: Performed By: #### C BC ####[facility] Wrbcephmhi849[address] [place], [place] [address]Dr. Ricardo Rocha Hemoglobin (Bld) [Mass/Vol] 8.6 g/dL Critically low 12.0-16.0 The [facility] Comment on above: Performed By: #### C BC ####[facility] Afshxtksoc737066 [address] [place], [place] [address]Dr. Ricardo Rocha IG # 0.08 10e3/ul Critically high 0.00-0.03 The [facility] Comment on above: Performed By: #### C BC ####[facility] Ahehuokepx0940[address] [place], [place] [address]Dr. Ricardo Rocha IG % 0.8 % Critically high 0.0-0.5 The [facility] Comment on above: Performed By: #### C BC ####[facility] Dcytqgehsw45[address] [place] [address]Dr. Ricardo Rocha LYMPH # 0.9 103/ul Critically low 1.2-3.8 The [facility] Comment on above: Performed By: #### C BC ####[facility] Llctkdvfrs0735 [place] [address]Dr. Nanomarcial Rocha Lymphocytes/100 WBC (Bld) 8.9 % Critically low 20.5-60.0 The [facility] Comment on above: Performed By: #### C BC ####[facility] Zgbyyzuvqc11[address] [place] [address]Dr. Ricardo Rocah MANUAL DIFF REQ NO Normal The [facility] Comment on above: Performed By: #### C BC ####[facility] Gqvsjzrsmb9451 [place] [address]Dr. Ricardo Rocha MCH (RBC) [Entitic mass] 25.1 pg Critically low 26.7-34.0 The [facility] Comment on above: Performed By: #### C BC ####[facility] Mdidmmdxhr4310[address] [place], [place] [address]Dr. Nanomarcial Rocha MCHC (RBC) [Mass/Vol] 30.8 g/dL Normal 29.9-35.2 The [facility] Comment on above: Performed By: #### C BC ####[facility] Pozlpidbgk9816[address] [place], [place] [address]Dr. Ricardo Rocha MCV (RBC) [Entitic vol] 81.6 fL Normal 81.0-99.0 The [facility] Comment on above: Performed By: #### C BC ####[facility] Aokuzaayrf99[address] [place] [address]Dr. Ricardo Rocha MONO # 0.6 103/ul Normal 0.3-0.8 The [facility] Comment on above: Performed By: #### C BC ####[facility] Dwpttjnydm1710[address] [place], [place] [address]Dr. Ricardo Rocha Monocytes/100 WBC (Bld) 5.7 % Normal 1.7-12.0 The [facility] Comment on above: Performed By: #### C BC ####[facility] Nfjxhwgagv17[address] [place] [id number]. Ricardo Rocha NEUT # 8.4 103/ul Critically high 1.4-6.5 The [facility] Comment on above: Performed By: #### C BC ####[facility] Eczfptgetv6[address] [place] [address]Dr. Ricardo Rocha Neutrophils/100 WBC (Bld) 83.8 % Critically high 43.0-75.0 The [facility] Comment on above: Performed By: #### C BC ####[facility] Vzicrinmjl63[address] [place] [address]Dr. Ricardo Rocha Platelet mean volume (Bld) [Entitic vol] 12.1 fL Normal 9.5-13.5 The [facility] Comment on above: Performed By: #### C BC ####[facility] Oxggbulhcw1066 [place] [address]Dr. Ricardo Rocha PLT 149 103/ul Critically low 150-450 The [facility] Comment on above: Performed By: #### C BC ####[facility] Dntjqvwmib1494 [place] [phone]. Ricardo Rocha RBC 3.42 106/ul Critically low 4.20-5.40 The [facility] Comment on above: Performed By: #### C BC ####[facility] Kznlpjxbak39[address] [place] [address]Dr. Ricardo Rocha WBC 10.0 103/ul Normal 4.0-11.0 The [facility] Comment on above: Performed By: #### C BC ####[facility] Hvqpywtxia7[address] [place] [address]Dr. Ricardo Rocha CULTURE OTHERon 06-13-2022 CULTURE OTHER Normal The [facility] Comment on above: Performed By: #### O THCX ####[facility] Ajivimsudf275166 [address] [place], [place] [address]Dr. Ricardo Rocha CULTURE OTHER Normal The [facility] Comment on above: Performed By: #### O THCX ####[facility] Xppfsfeamg07[address] [place], [place] [address]Dr. Ricardo Rocha CULTURE OTHER Normal The [facility] Comment on above: Performed By: #### O THCX ####[facility] Wbbgnpspmu9677[address] [place], [place] [address]Dr. Ricardo Rocha GI PANEL (PCR)on 06-13-2022 Adenovirus F 40/41 Not detected Normal NOT DETECTED [facility] Comment on above: Performed By: #### G IPANEL ####[facility] Gnbhmsfqia9315[address] [place], [place] [address]Dr. Ricardo Rocha Astrovirus Not detected Normal NOT DETECTED The [facility] Comment on above: Performed By: #### G IPANEL ####[facility] Pqqalyzuyr0575[address] [place], [place] [address]Dr. Ricardo Rocha C. Diff toxin A/B Not detected Normal NOT DETECTED The [facility] Comment on above: Performed By: #### G IPANEL ####[facility] Cgkfcexuhz234166 [address] [place], [place] [address]Dr. Ricardo Rocha Campylobacter Not detected Normal NOT DETECTED The [facility] Comment on above: Performed By: #### G IPANEL ####[facility] Ilmadalrkb14[address] [place], [place] [address]Dr. Ricardo Rocha Cryptosporidium Not detected Normal NOT DETECTED The [facility] Comment on above: Performed By: #### G IPANEL ####[facility] Gxpllietyo995066 [address] [place], [place] [address]Dr. Ricardo Rocha Cyclos. Cayetanensis Not detected Normal NOT DETECTED The [facility] Comment on above: Performed By: #### G IPANEL ####[facility] Myzgpbbafx442266 [address] [place], [place] [address]Dr. Ricardo Rocha E. Coli O157 Not Applicable Normal Not Applicable The [facility] Comment on above: Performed By: #### G IPANEL ####[facility] Ukinaiywrl0795[address] [place], [place] [address]Dr. Ricardo Rocha E. histolytica Not detected Normal NOT DETECTED The [facility] Comment on above: Performed By: #### G IPANEL ####[facility] Xqeupakaxk982166 [address] [place], [place] [address]Dr. Ricardo Rocha EAEC Not detected Normal NOT DETECTED The [facility] Comment on above: Performed By: #### G IPANEL ####[facility] Wolfwjdala20[address] [place] [address]Dr. Nanomarcial Rocha EIEC Not detected Normal NOT DETECTED The [facility] Comment on above: Performed By: #### G IPANEL ####[facility] Fxcxtqiobl8164 [place] [address]Dr. Ricardo Rocha EPEC Not detected Normal NOT DETECTED The [facility] Comment on above: Performed By: #### G IPANEL ####[facility] Wzupzdtosv4005[address] [place], [place] [address]Dr. Ricardo Rocha ETEC Not detected Normal NOT DETECTED The [facility] Comment on above: Performed By: #### G IPANEL ####[facility] Yhsrnesedh847966 [address] [place], [place] [address]Dr. Ricardo Rocha G. Lamblia Not detected Normal NOT DETECTED The [facility] Comment on above: Performed By: #### G IPANEL ####[facility] Zimlnrfmaw0737[address] [place], [place] [address]Dr. Ricardo [facility] CONTROLS PASSED Normal The [facility] Comment on above: Performed By: #### G IPANEL ####[facility] Ruskkrebwk067[address] [place], [place] [address]Dr. Ricardo Rcoha [facility] HEADER GI PANEL BACTERIA Normal T [facility] Comment on above: Performed By: #### G IPANEL ####[facility] Wwodqffswa088[address] [place], [place] [address]Dr. Ricardo [facility] ECOLI GI PANEL DIARRHEAGEN IC E.COLI / SHIGELLA Normal The [facility] Comment on above: Performed By: #### G IPANEL ####[facility] Qnnalkkmuv8454[address] [place], [place] [address]Dr. Ricardo [facility] CenterHD INFO SEE BELOW Normal The [facility] Comment on above: Result Comment: EAEC - Enteroaggregative E. Coli EPEC- Enteropathogenic E. Coli ETEC- Enterotoxigenic E. Coli lt/st STEC- Shigella-like toxin-producing E. Coli stx1/stx2 EIEC- Shigella/Enteroinvasive E. Coli Performed By: #### G IPANEL ####[facility] Muqvpjmias39[address] [place] [address]Dr. Ricardo Rocha GIPNLHD PARASITES GI PANEL PARASITES Normal The [facility] Comment on above: Performed By: #### G IPANEL ####[facility] Isjedgxoai44[address] [place] [address]Dr. Ricardo Rocha GIPNLHD VIRUS GI PANEL VIRUSES Normal The [facility] Comment on above: Performed By: #### G IPANEL ####[facility] Eqhapmuxng0709[address] [place], [place] [address]Dr. Ricardo [facility] Norovirus GI/GII Not detected Normal NOT DETECTED The [facility] Comment on above: Performed By: #### G IPANEL ####[facility] Wjwpwylycw8047[address] [place], [place] [address]Dr. Ricardo Rocha P. Shigelloides Not detected Normal NOT DETECTED The [facility] Comment on above: Performed By: #### G IPANEL ####[facility] Nxvzmmsuvj874066 [address] [place], [place] [address]Dr. Ricardo Rocha Rotavirus A Not detected Normal NOT DETECTED The [facility] Comment on above: Performed By: #### G IPANEL ####[facility] Iizwkaovqg894366 [address] [place], [place] [address]Dr. Ricardo Rocha Salmonella Not detected Normal NOT DETECTED The [facility] Comment on above: Performed By: #### G IPANEL ####[facility] Jeimobckkb184266 [address] [place], [place] [address]Dr. Ricardo Rocha Sapovirus Not detected Normal NOT DETECTED The [facility] Comment on above: Performed By: #### G IPANEL ####[facility] Phrkbrhdtm373566 [address] [place], [place] [address]Dr. Ricardo Rocha STEC Not detected Normal NOT DETECTED The [facility] Comment on above: Performed By: #### G IPANEL ####[facility] Tqxkzviqjw1534[address] [place], [place] [address]Dr. Nanomarcial Rocha Vibrio Not detected Normal NOT DETECTED The [facility] Comment on above: Performed By: #### G IPANEL ####[facility] Kirgktvnzh07[address] [place] [address]Dr. Ricardo Rocha Vibrio Cholera Not detected Normal NOT DETECTED The [facility] Comment on above: Performed By: #### G IPANEL ####[facility] Dempauuaqw68[address] [place] [address]Dr. Ricardo Rocha Y. Enterocolitica Not detected Normal NOT DETECTED [facility] Comment on above: Performed By: #### G IPANEL ####[facility] Stwdhhwpvy0714 [place] [address]Dr. Ricardo Rocha IRON AND TIBCon 06-13-2022 % SATURATION 19.9 % Normal [facility] Comment on above: Performed By: #### F ETIBC, B12FOL ####[facility] Xqufburjrv1511[address] [place], [place] [address]Dr. Ricardo Rocha Iron [Mass/Vol] 75.0 ug/dL Normal 50.0-170.0 The [facility] Comment on above: Performed By: #### F ETIBC, B12FOL ####[facility] Rgvbmtcbbv5311[address] [place], [place] [address]Dr. Ricardo Rocha TIBC DIRECT 376.0 ug/dL Normal 250.0-450.0 The [facility] Comment on above: Performed By: #### F ETIBC, B12FOL ####[facility] Drjnczcvgp9644[address] [place], [place] [address]Dr. Ricardo Rocha POINT OF CARE GLUCOSEon 05-22 Glucose [Mass/Vol] 238 mg/dL Critically high 74-106 [facility] Comment on above: Performed By: #### P OCGLUC ####[facility] Hkvzsfgqpb0559 [place] [address]Dr. Ricardo Rocha Glucose [Mass/Vol] 146 mg/dL Critically high -106 [facility] Comment on above: Performed By: #### P OCGLUC ####[facility] Oieajjeclj0509[address] [place], [place] [address]Dr. Ricardo Rocha Glucose [Mass/Vol] 143 mg/dL Critically high -106 [facility] Comment on above: Performed By: #### P OCGLUC ####[facility] Ocppekuwrh4[address] [place] [phone]. Ricardo Rocha Glucose [Mass/Vol] 205 mg/dL Critically high 74-106 [facility] Comment on above: Performed By: #### P OCGLUC ####[facility] Nooakrauut01[address] [place] [phone]. Ricardo Rocha Glucose [Mass/Vol] 227 mg/dL Critically high 74-106 [facility] Comment on above: Performed By: #### P OCGLUC ####[facility] Qrlstexpea35[address] [place] [address]Dr. Ricardo Rocha PROF 14(COMP METB)on 022 Albumin [Mass/Vol] 1.5 g/dL Critically low 3.4-5.0 Th [facility] Comment on above: Performed By: #### C MP ####[facility] Muzmgbdxag3812[address] [place], [place] [address]Dr. Ricardo Rocha Albumin/Globulin [Mass ratio] 0.3 {ratio} Normal [facility] Comment on above: Performed By: #### C MP ####[facility] Hypezjxokd11[address] [place], [place] [address]Dr. Ricardo Rocha ALP [Catalytic activity/Vol] 136 U/L Critically high 46-116 [facility] Comment on above: Performed By: #### C MP ####[facility] Fxqtnakyuf999[address] [place], [place] [address]Dr. Ricardo Rocha ALT [Catalytic activity/Vol] 18 U/L Normal 14-59 [facility] Comment on above: Performed By: #### C MP ####[facility] Nfddtyslfu0241 [place] [address]Dr. Ricardo Rocha Anion gap [Moles/Vol] 10.2 mmol/L Normal [facility] Comment on above: Performed By: #### C MP ####[facility] Uaejqpaepv2607[address] [place], [place] [address]Dr. Ricardo Rocha AST [Catalytic activity/Vol] 37 U/L Normal 15-37 [facility] Comment on above: Performed By: #### C MP ####[facility] Xfehmqdike7[address] [place] [phone]. Ricardo Rocha Bilirubin [Mass/Vol] 0.4 mg/dL Normal 0.2-1.0 [facility] Comment on above: Performed By: #### C MP ####[facility] Lpeywvndbm6408 [place] [address]Dr. Ricardo Rocha Calcium [Mass/Vol] 8.0 mg/dL Critically low 8.5-10.1 Th [facility] Comment on above: Performed By: #### C MP ####[facility] Hbxrtcksnt360[address] [place], [place] [address]Dr. Ricardo Rocha Chloride [Moles/Vol] 110 mmol/L Critically high 98-107 [facility] Comment on above: Performed By: #### C MP ####[facility] Mazkkildoy2157[address] [place], [place] [address]Dr. Ricardo Rocha CO2 [Moles/Vol] 18.2 mmol/L Critically low 21.0-32.0 [facility] Comment on above: Performed By: #### C MP ####[facility] Zicmsptmuj1797[address] [place], [place] [address]Dr. Ricardo Rocha Creatinine [Mass/Vol] 1.76 mg/dL Critically high 0.55-1.02 [facility] Comment on above: Performed By: #### C MP ####[facility] Ehufhycyux0104[address] [place], [place] [address]Dr. Ricardo Aj EGFR-AF BRITISH 35 mL/min/1.73m2 Critically low >=60 The [facility] Comment on above: Performed By: #### C MP ####[facility] Mmtqizlnqa618[address] [place], [place] [address]Dr. Ricardo Rocha EGFR-NON AF BRITISH 29 mL/min/1.73m2 Critically low >=60 [facility] Comment on above: Performed By: #### C MP ####[facility] Ragijfwghd7285[address] [place], [place] [address]Dr. Ricardo Rocha Globulin (S) [Mass/Vol] 4.7 g/dL Normal The [facility] Comment on above: Performed By: #### C MP ####[facility] Wqctxbngzp3810 [place] [address]Dr. Ricardo Rocha Glucose [Mass/Vol] 223 mg/dL Critically high 74-106 T [facility] Comment on above: Performed By: #### C MP ####[facility] Jhmegnskal33[address] [place] [address]Dr. Ricardo Rocha Potassium [Moles/Vol] 3.4 mmol/L Critically low 3.5-5.1 [facility] Comment on above: Performed By: #### C MP ####[facility] Dsgmktcurx2989[address] [place], [place] [address]Dr. Ricardo Rocha Protein [Mass/Vol] 6.2 g/dL Critically low 6.4-8.2 Th [facility] Comment on above: Performed By: #### C MP ####[facility] Muimtghekr6687[address] [place], [place] [address]Dr. Ricardo Rocha Sodium [Moles/Vol] 135 mmol/L Critically low 136-145 Th [facility] Comment on above: Performed By: #### C MP ####[facility] Gvxaurulsi970[address] [place], [place] [address]Dr. Ricardo Rocha Urea nitrogen [Mass/Vol] 33.0 mg/dL Critically high 7.0-18.0 [facility] Comment on above: Performed By: #### C MP ####[facility] Cyuzraieto9844[address] [place], [place] [address]Dr. Ricardo Rocha Urea nitrogen/Creatinine [Mass ratio] 18.8 mg/mg Normal [facility] Comment on above: Performed By: #### C MP ####[facility] Odbkyaruhl7389[address] [place], [place] [address]Dr. Ricardo Rocha VANCOMYCIN TROUGHon 06-13-20 22 VANCOMYCIN TROUGH 15.2 ug/ml Normal 5.0-20.0 [facility] Comment on above: Performed By: #### V ANCT ####[facility] Lcffzdfqvl1725[address] [place], [place] [address]Dr. Ricardo Rocha VIT B12 AND FOLATEon 022 Cobalamin (Vitamin B12) [Mass/Vol] 874.0 pg/mL Normal 193.0-986.0 The [facility] Comment on above: Performed By: #### F ROE B12FOBroderick ####[facility] Lhzmppwmux4[address] [place] [address]Dr. Ricardo Rocha FOLATE 6.60 ng/mL Critically low 8.60-58.90 The [facility] Comment on above: Performed By: #### F ROE B12FOL ####[facility] Iwsczlgpwl9034 [place] [address]Dr. Ricardo Rocha XR FOOT LT MIN 3 VIEWSon XR FOOT LT MIN 3 VIEWS Normal The [facility] CBC W MANUAL DIFFon 06-12-20 ATYPICAL LYMPH # Normal The [facility] Comment on above: Performed By: #### C DWAINE ####[facility] Abpbxicmaj3800[address] [place], [place] [address]Dr. Ricardo Rocha ATYPICAL LYMPH % Normal The [facility] Comment on above: Performed By: #### C DWAINE ####[facility] Oxmpytazon6650[address] [place], [place] [address]Dr. Ricardo Rocha BAND # 1.9 103/ul Critically high 0.0-0.3 The [facility] Comment on above: Performed By: #### C DWAINE ####[facility] Wsdrcjtztn92[address] [place], [place] [address]Dr. Ricardo Rocha BAND % 17 % Critically high 0-5 The [facility] Comment on above: Performed By: #### C DWAINE ####[facility] Vujqtctvby9[address] [place] [address]Dr. Ricardo Rocha BASOM # 0.00 103/ul Normal 0.00-0.10 The [facility] [facility] Comment on above: Performed By: #### C DWAINE ####[facility] Lqpknds[address] [place], [place] [address]Dr. Ricardo Rocha BASOM % 0.0 % Critically low 0.2-2.0 The [facility] Comment on above: Performed By: #### C DWAINE ####[facility] Pzisopezny[address] [place], [place] [address]Dr. Ricardo Rocha BLAST # Normal The [facility] Comment on above: Performed By: #### C DWAINE ####[facility] Ztopuwxxoc7[address] [place] [address]Dr. Ricardo Rocha BLAST % Normal The [facility] Comment on above: Performed By: #### C DWAINE ####[facility] Yyuhvivcpx5[address] [place] [address]Dr. Ricardo Rocha CORRECTED WBC Normal 4.0-11.0 The [facility] Comment on above: Performed By: #### C DWAINE ####[facility] Gkgpelvvpf96[address] [place] [address]Dr. Ricardo Rocha EOS # 0.00 103/ul Normal 0.00-0.70 The [facility] Comment on above: Performed By: #### C DWAINE ####[facility] Dcunwfgqny0153 [place] [address]Dr. Ricardo Rocha EOS% 0.0 % Critically low 0.9-7.0 [facility] Comment on above: Performed By: #### C DWAINE ####[facility] Lypnayarbc9716 [place] [address]Dr. Ricardo Rocha HCT 28.0 % Critically low 36.0-48.0 The [facility] Comment on above: Performed By: #### C DWAINE ####[facility] Enpyfgjpvt6210 [place] [address]Dr. Ricardo Rocha HGB 8.6 g/dl Critically low 12.0-16.0 The [facility] Comment on above: Performed By: #### C DWAINE ####[facility] Wyktgtajct7572 [place] [address]Dr. Ricardo Rocha HYPOCHROMASIA SLIGHT Normal The [facility] Comment on above: Performed By: #### C DWAINE ####[facility] Srquhgwiyi0683 [place] [address]Dr. Ricardo Rocha LYMPHM # 0.77 103/ul Critically low 1.20-3.80 The [facility] Comment on above: Performed By: #### C DWAINE ####[facility] Mklnrduphc1940 [place], [place] [address]Un. Ricardo Rocha LYMPHM% 7.0 % Critically low 20.5-60.0 The [facility] Comment on above: Performed By: #### C DWAINE ####[facility] Pnpbnxjffl3392 [place], [place] [address]Fy. Ricardo Rocha MCH 25.1 pg Critically low 26.7-34.0 The [facility] Comment on above: Performed By: #### C DWAINE ####[facility] Smqpgoirqt0108 [place] [phone]. Ricardo Rocha MCHC 30.7 g/dl Normal 29.9-35.2 The [facility] Comment on above: Performed By: #### C DWAINE ####[facility] Hedswgptan3034 [place] [phone]. Ricardo Rocha MCV 81.9 fL Normal 81.0-99.0 The [facility] Comment on above: Performed By: #### C DWAINE ####[facility] Kgwbunqsgk4051 [place] [phone]. Ricardo Rocha METAMYELOCYTE # Normal The [facility] Comment on above: Performed By: #### C DWAINE ####[facility] Yrsqdjyrpc3390 [place] [phone]. Ricardo Rocha METAMYELOCYTE % Normal The [facility] Comment on above: Performed By: #### C DWAINE ####[facility] Rdhagduyuj7680 [place] [phone]. Ricardo Rocha MONOM# 0.11 103/ul Critically low 0.30-0.80 The [facility] Comment on above: Performed By: #### C DWAINE ####[facility] Vfuaugukfe0381 [place] [phone]. Ricardo Rocha MONOM% 1.0 % Critically low 1.7-12.0 The [facility] Comment on above: Performed By: #### C DWAINE ####[facility] Ebjtsiabpl1397 [place] [phone]. Ricardo Rocha MPV 12.6 fL Normal 9.5-13.5 The [facility] Comment on above: Performed By: #### C DWAINE ####[facility] Stufohoefh4971 [place], [place] [address]Tv. Ricardo Rocha MYELOCYTE # Normal [facility] Comment on above: Performed By: #### C DWAINE ####[facility] Fkwxqyznld0550 [place], [place] [address]Tw. Ricardo Rocha MYELOCYTE % Normal [facility] Comment on above: Performed By: #### C DWAINE ####[facility] Edbplisorc3900 [place] [phone]. Ricardo Rocha NRBC Normal [facility] Comment on above: Performed By: #### C DWAINE ####[facility] Mcpoedpaec0618 [place] [phone]. Ricardo Rocha PLT 140 103/ul Critically low 150-450 [facility] Comment on above: Performed By: #### C DWAINE ####[facility] Xwptylcduo7687 [place] [phone]. Ricardo Rocha RBC 3.42 106/ul Critically low 4.20-5.40 [place] Comment on above: Performed By: #### C DWAINE ####[facility] Bcoitxptfk2606 [place] [phone]. Ricardo Rocha RDW 13.7 % Normal 11.0-15.0 [facility] Comment on above: Performed By: #### C DWAINE ####[facility] Wujgwvvaau0287 [place] [phone]. Ricardo Rocha SEG # 8.25 103/ul Critically high 1.40-6.50 The [facility] Comment on above: Performed By: #### C DWAINE ####[facility] Zbmavnxzmt8997 [place] [phone]. Ricardo Rocha SEG % 75.0 % Normal 43.0-75.0 [facility] Comment on above: Performed By: #### C DWAINE ####[facility] Yhlailiiuw2558 [place] [phone]. Ricardo Rocha WBC 11.0 103/ul Normal 4.0-11.0 [facility] Comment on above: Performed By: #### C BCMAN ####[facility] Semyavshph6170 [place] [address]Dr. Ricardo Aj POINT OF CARE GLUCOSEon 05-22 Glucose [Mass/Vol] 200 mg/dL Critically high 74-106 [facility] Comment on above: Performed By: #### P OCGLUC ####[facility] Pgwzjsutsm05[address] [place], [place] [address]Dr. Nanomarcial Aj Glucose [Mass/Vol] 165 mg/dL Critically high 74-106 [facility] Comment on above: Performed By: #### P OCGLUC ####[facility] Umathzuhld11[address] [place], [place] [address]Dr. Ricardo Rocha Glucose [Mass/Vol] 152 mg/dL Critically high 74-106 [facility] Comment on above: Performed By: #### P OCGLUC ####[facility] Orygmkswga4889[address] [place], [place] [address]Dr. Nanomarcial Aj Glucose [Mass/Vol] 154 mg/dL Critically high 74-106 [facility] Comment on above: Performed By: #### P OCGLUC ####[facility] Intugxjcsp2220[address] [place], [place] [address]Dr. Nanomarcial Rocha PROF 14(COMP METB)on 022 Albumin [Mass/Vol] 1.9 g/dL Critically low 3.4-5.[address] [facility] Comment on above: Performed By: #### C MP ####[facility] Cshhtqpitv1093 [place] [address]Dr. Ricardo Rocha Albumin/Globulin [Mass ratio] 0.4 {ratio} Normal [facility] Comment on above: Performed By: #### C MP ####[facility] Pssrjlbeab0[address] [place], [place] [address]Dr. Ricardo Rocha ALP [Catalytic activity/Vol] 68 U/L Normal 46-116 [facility] Comment on above: Performed By: #### C MP ####[facility] Agllhgtuub705[address] [place], [place] [address]Dr. Ricardo Rocha ALT [Catalytic activity/Vol] 16 U/L Normal 14-59 [facility] Comment on above: Performed By: #### C MP ####[facility] Fnukdrhcsi9901 [place] [address]Dr. Ricardo Rocha Anion gap [Moles/Vol] 15.1 mmol/L Normal [facility] Comment on above: Performed By: #### C MP ####[facility] Qtkjqriktk5640[address] [place], [place] [address]Dr. Ricardo Rocha AST [Catalytic activity/Vol] 26 U/L Normal 15-37 [facility] Comment on above: Performed By: #### C MP ####[facility] Syckumpqnc704[address] [place], [place] [address]Dr. Ricardo Rocha Bilirubin [Mass/Vol] 0.3 mg/dL Normal 0.2-1.0 [facility] Comment on above: Performed By: #### C MP ####[facility] Lppmcpcabl280[address] [place], [place] [address]Dr. Ricardo Rocha Calcium [Mass/Vol] 8.0 mg/dL Critically low 8.5-10.1 Th [facility] Comment on above: Performed By: #### C MP ####[facility] Omtyncfcop18[address] [place], [place] [address]Dr. Ricardo Rocha Chloride [Moles/Vol] 110 mmol/L Critically high 98-107 The [facility] Comment on above: Performed By: #### C MP ####[facility] Emupqqbsly706[address] [place], [place] [address]Dr. Ricardo Rocha CO2 [Moles/Vol] 18.0 mmol/L Critically low 21.0-32.0 The [facility] Comment on above: Performed By: #### C MP ####[facility] Ppocfwwznt[address] [place], [place] [address]Dr. Ricardo Rocha Creatinine [Mass/Vol] 1.97 mg/dL Critically high 0.55-1.02 [facility] Comment on above: Performed By: #### C MP ####[facility] Rnsocwnacr[address] [place], [place] [address]Dr. Ricardo Rocha EGFR-AF BRITISH 31 mL/min/1.73m2 Critically low >=60 [facility] Comment on above: Performed By: #### C MP ####[facility] Layxkqvjqk5191 [place] [address]Dr. Ricardo Aj EGFR-NON AF BRITISH 26 mL/min/1.73m2 Critically low >=60 [facility] Comment on above: Performed By: #### C MP ####[facility] Zfzhndtvzb7597 [place] [address]Dr. Ricardo Aj Globulin (S) [Mass/Vol] 5.2 g/dL Normal [facility] Comment on above: Performed By: #### C MP ####[facility] Dzqsptwzaf60[address] [place], [place] [address]Dr. Nanomarcial Aj Glucose [Mass/Vol] 146 mg/dL Critically high 74-106 [facility] Comment on above: Performed By: #### C MP ####[facility] Bbykrbwbec1930 [place] [address]Dr. Ricardo Rocha Potassium [Moles/Vol] 3.1 mmol/L Critically low 3.5-5.1 [facility] Comment on above: Performed By: #### C MP ####[facility] Wnwzjabvtz12[address] [place], [place] [address]Dr. Nanomarcial Aj Protein [Mass/Vol] 7.1 g/dL Normal 6.4-8.2 The [facility] Comment on above: Performed By: #### C MP ####[facility] Emvzswmjyz3652 [place] [address]Dr. Nanomarcial Rocha Sodium [Moles/Vol] 140 mmol/L Normal 136-145 [facility] Comment on above: Performed By: #### C MP ####[facility] Qvifpkojyo58[address] [place], [place] [address]Dr. Ricardo Rocha Urea nitrogen [Mass/Vol] 30.0 mg/dL Critically high 7.0-18.0 [facility] Comment on above: Performed By: #### C MP ####[facility] Chlgvdwblq27[address] [place], [place] [address]Dr. Ricardo Rocha Urea nitrogen/Creatinine [Mass ratio] 15.2 mg/mg Normal The [facility] Comment on above: Performed By: #### C MP ####[facility] Exjfmlzfgs3851 [place] [address]Dr. Ricardo Rocha CBC W MANUAL DIFFon 06-11-20 22 ATYPICAL LYMPH # Normal The [facility] Comment on above: Performed By: #### C BCMAN ####[facility] Rnndfqkmvb2383 [place] [address]Dr. Ricardo Rocha ATYPICAL LYMPH % Normal The [facility] Comment on above: Performed By: #### C BCMAN ####[facility] Ywundqjgbt8712 [place] [address]Dr. Ricardo Rocha BAND # 1.1 103/ul Critically high 0.0-0.3 The [facility] Comment on above: Performed By: #### C BCMAN ####[facility] Tmlmzetyam7370 [place] [address]Dr. Ricardo Rocha BAND % 12 % Critically high 0-5 The [facility] Comment on above: Performed By: #### C BCRED ####[facility] Jjikruvhcf[address] [place], [place] [address]Dr. Ricardo Rocha BASOM # 0.00 103/ul Normal 0.00-0.10 The [facility] Comment on above: Performed By: #### C BCMAN ####[facility] Yvehgnocqj58[address] [place], [place] [address]Dr. Ricardo Rocha BASOM % 0.0 % Critically low 0.2-2.0 The [facility] Comment on above: Performed By: #### C BCRED ####[facility] Ybtxszwhxu2996 [place] [address]Dr. Ricardo Rocha BLAST # Normal The [facility] Comment on above: Performed By: #### C BCMAN ####[facility] Qocglsqufg4871 [place] [address]Dr. Ricardo Rocha BLAST % Normal The [facility] Comment on above: Performed By: #### C BCMAN ####[facility] Nqjkwdtpcb[address] [place], [place] [address]Dr. Ricardo Rocha CORRECTED WBC Normal 4.0-11.0 The [facility] Comment on above: Performed By: #### C DWAINE ####[facility] Rqcxvgiwxs0089 [place] [phone] Rocha EOS # 0.00 103/ul Normal 0.00-0.70 [facility] Comment on above: Performed By: #### C DWAINE ####[facility] Wryqomlcbg2468 [place] [address]Dr. Ricardo Rocha EOS% 0.0 % Critically low 0.9-7.0 [facility] Comment on above: Performed By: #### C DWAINE ####[facility] Fclobvjtlj2434 [place] [address]Dr. Ricardo Rocha HCT 32.6 % Critically low 36.0-48.0 [facility] Comment on above: Performed By: #### C DWAINE ####[facility] Kkvsjlhsvp0479 [place] [address]Dr. Ricardo Rocha HGB 10.5 g/dl Critically low 12.0-16.0 The [facility] Comment on above: Performed By: #### C DWAINE ####[facility] Vflrpxuiwg4655 [place] [address]Dr. Ricardo Rocha LYMPHM # 0.46 103/ul Critically low 1.20-3.80 The [facility] Comment on above: Performed By: #### C DWAINE ####[facility] Hguhqvwhpx8636 [place] [address]Dr. Ricardo Rocha LYMPHM% 5.0 % Critically low 20.5-60.0 The [facility] Comment on above: Performed By: #### C DWAINE ####[facility] Ucipexjyzr[address] [place], [place] [address]Dr. Ricardo Rocha MCH 25.3 pg Critically low 26.7-34.0 The [facility] Comment on above: Performed By: #### C DWAINE ####[facility] Xivpefpbfy93[address] [place], [place] [address]Dr. Ricardo Rocha MCHC 32.2 g/dl Normal 29.9-35.2 The [facility] Comment on above: Performed By: #### C DWAINE ####[facility] Egrtomavmz2093 [place] [phone]. Ricardo Rocha MCV 78.6 fL Critically low 81.0-99.0 [facility] Comment on above: Performed By: #### C DWAINE ####[facility] Pkrodubrep7128 [place] [phone]. Ricardo Rocha METAMYELOCYTE # Normal [place] Comment on above: Performed By: #### C DWAINE ####[facility] Nlbvxgbaig6899 [place] [phone]. Ricardo Rocha METAMYELOCYTE % Normal The [facility] Comment on above: Performed By: #### C DWAINE ####[facility] Kbfvlzvjby3649 [place] [address]Dr. Ricardo Rocha MONOM# 0.28 103/ul Critically low 0.30-0.80 [place] Comment on above: Performed By: #### C DWAINE ####[facility] Ljutfghzzr0514 [place] [address]Dr. Ricadro Rocha MONOM% 3.0 % Normal 1.7-12.0 [facility] Comment on above: Performed By: #### Esteban ISIDRO ####[facility] Nsxajwqqpj2338 [place] [address]Dr. Ricardo Rocha MPV 11.4 fL Normal 9.5-13.5 [facility] Comment on above: Performed By: #### Esteban ISIDRO ####[facility] Bplheoaiyv8443 [place] [phone]. Ricardo Rocha MYELOCYTE # Normal The [facility] Comment on above: Performed By: #### C DWAINE ####[facility] Ivmkmmjtvc7530 [place] [phone]. Ricardo Rocha MYELOCYTE % Normal The [facility] Comment on above: Performed By: #### C DWAINE ####[facility] Fvmuvfjbsv1888 [place] [phone]. Ricardo Rocha NRBC Normal The [facility] Comment on above: Performed By: #### C DWAINE ####[facility] Wyjeddpwqw1857 [place], [place] [address]Jg. Ricardo Rocha PLT 154 103/ul Normal 150-450 The [facility] Comment on above: Performed By: #### C DWAINE ####[facility] Hznhoirazz2800 [place], [place] [address]Oq. Ricardo Rocha RBC 4.15 106/ul Critically low 4.20-5.40 The [facility] Comment on above: Performed By: #### C DWAINE ####[facility] Nentlqmbzc8316 [place], [place] [address]Hp. Ricardo Rocha RDW 12.8 % Normal 11.0-15.0 [facility] Comment on above: Performed By: #### C DWAINE ####[facility] Hpdtnxedvt7473 [place], [place] [address]Nd. Ricardo Rocha SEG # 7.36 103/ul Critically high 1.40-6.50 [facility] Comment on above: Performed By: #### C DWAINE ####[facility] Mxfqxxfpcr4803 [place], [place] [address]Dc. Ricardo Rocha SEG % 80.0 % Critically high 43.0-75.0 The [facility] Comment on above: Performed By: #### C DWAINE ####[facility] Vdufrmhaxm3465 [place], [place] [address]Pd. Ricardo Rocha WBC 9.2 103/ul Normal 4.0-11.0 The [facility] Comment on above: Performed By: #### C DWAINE ####[facility] Fyjqrwupfn8932 [place], [place] [address]Xo. Ricardo Rocha CT HEAD WO CONon 06-11-2022 CT HEAD WO CON Normal [facility] CULTURE ANAEROBICon 06-11-20 22 CULTURE ANAEROBIC Culture Observations : NO GROWTH OF ANAEROBES AT 72 HOURS. Normal The [facility] Comment on above: Performed By: #### A NACX ####[facility] Kdxgrgpjjj5946 [place], [place] [address]Mt. Ricardo Rocha CULTURE ANAEROBIC Culture Observations : NO GROWTH OF ANAEROBES AT 72 HOURS. Normal The [facility] Comment on above: Performed By: #### A NACX ####[facility] Keulvdwbnj4961 [place] [phone]. Ricardo Rocha CULTURE BLOODon 06-11-2022 Microscopic examination of blood, culture Culture Observations: Aerobic bottle positive only. Culture Observations: No growth at 5 days in anaerobic bottle Culture Observations: See for Susceptibility testing. Isolate 1 Staphylococcus aureus Growth of Normal [facility] Comment on above: Performed By: #### B LDCX2 ####[facility] Szboqgdgji[address] [place], [place] [address]Dr. Ricardo Rocha CULTURE URINEon 06-11-2022 CULTURE URINE Culture Observations : LIGHT GROWTH OF MIXED GENITAL SHAHLA. NO POTENTIAL PATHOGENS SEEN. Normal The [facility] Comment on above: Performed By: #### U RCX ####[facility] Exfncufxlo80[address] [place], [place] [address]Dr. [facility] Covid-19 PCR (CVDTBH)on 05-22 SARS-CoV-2 (COVID-19) RNA ADRIEL+probe Ql (Unsp spec) Not detected Normal NOT DETECTED The [facility] Comment on above: Result Comment: When [...] for this test is supported by the [employer] of Health and Human Service's declaration that [...] be used). Performed By: #### C VDTBH ####[facility] Tocibtuchp48[address] [place], [place] [address]Dr. Ricardo Aj ER URINE PROFILEon 2 Bilirubin Ql (U) Negative Normal NEGATIVE The [facility] Comment on above: Performed By: #### SHAYNA ELENA ####[facility] Dhdptkpqcc9[address] [place], [place] [address]Dr. Ricardo Rocha Clarity (U) CLEAR Normal CLEAR The [facility] Comment on above: Performed By: #### SHAYNA ELENA ####[facility] Ctwafsmpwu227[address] [place], [place] [address]Dr. Ricardo Rocha Color (U) LT. YELLOW Normal YELLOW The [facility] Comment on above: Performed By: #### SHAYNA ELENA ####[facility] Xukyxjihqd8732[address] [place], [place] [address]Dr. Ricardo Rocha ERUAHD A micrscopic examination will be performed if indicated. Normal The [facility] Comment on above: Performed By: #### SHAYNA ELENA ####[facility] Dfknpncuqr047[address] [place], [place] [address]Dr. Ricardo Rocha Glucose Ql (U) >1000 Abnormal NEGATIVE The [facility] Comment on above: Performed By: #### SHAYNA ELENA ####[facility] Tyrxofzehb6905[address] [place], [place] [address]Dr. Ricardo Rocha Hemoglobin Ql (U) LARGE Abnormal NEGATIVE The [facility] Comment on above: Performed By: #### SHAYNA ELENA ####[facility] Jdrnghmkkm4613[address] [place], [place] [address]Dr. Ricardo Rocha Ketones Ql (U) 15 mg/dl Abnormal NEGATIVE The [facility] Comment on above: Performed By: #### SHAYNA ELENA ####[facility] Qxydocqfjg350[address] [place], [place] [address]Dr. Ricardo Rocha LEUKOCYTES Negative Normal NEGATIVE The [facility] Comment on above: Performed By: #### SHAYNA ELENA ####[facility] Xwhvthozbe879[address] [place], [place] [address]Dr. Ricardo Rocha Nitrite Ql (U) Negative Normal NEGATIVE The [facility] Comment on above: Performed By: #### JOSLYN ELENARO ####[facility] Qlnsdchkyc10[address] [place], [place] [address]Dr. Ricardo Rocha pH (U) 6.0 [pH] Normal 5-9 The [facility] Comment on above: Performed By: #### JOSLYN ELENARO ####[facility] Ftsvgytujm754[address] [place], [place] [address]Dr. Ricardo Rocha Protein (U) [Mass/Vol] 100 mg/dL Abnormal NEGATIVE/ TRACE The [facility] Comment on above: Performed By: #### JOSLYN ELENARO ####[facility] Velpxhbmik35[address] [place], [place] [address]Dr. Ricardo Rocha SPEC GRAVITY 1.020 Normal 1.005-<=1.02 5 [facility] Comment on above: Performed By: #### SHAYNA ELENA ####[facility] Rsylzxzilj693[address] [place], [place] [address]Dr. Ricardo Rocha UR MICRO IND INDICATED Normal The [facility] Comment on above: Performed By: #### Jennifer HINOJOSA YESENIARO ####[facility] Xvnfzmawdw94[address] [place], [place] [address]Dr. Ricardo Rocha Urobilinogen Qn (U) 0.2 {Madeleine'U}/dL Normal 0.2 - 1. 0 The [facility] Comment on above: Performed By: #### SHAYNA ELENA ####[facility] Edlzbpvrut875[address] [place], [place] [address]Dr. Ricardo Rocha GRAM STAINon 06-11-2022 DIPHTHEROIDS Normal The [facility] Comment on above: Performed By: #### G STAIN ####[facility] Agockiwnig68[address] [place], [place] [address]Dr. Ricardo Rocha EPITHELIALS Normal The [facility] Comment on above: Performed By: #### G STAIN ####[facility] Vpmyzkgkwj[address] [place], [place] [address]Dr. Ricardo Rocha FUNGAL ELEMENTS Normal [facility] Comment on above: Performed By: #### G STAIN ####[facility] Acbbtvmozz[address] [place] [phone]. Ricardo Rocha GRAM NEG BACILLI Normal [facility] Comment on above: Performed By: #### G STAIN ####[facility] Utxqytoiqy[address] [place] [address]Dr. Ricardo Rocha GRAM NEG DIPPLOCOCCI Normal The [facility] Comment on above: Performed By: #### G STAIN ####[facility] Kmrhavsvgq53[address] [place] [address]Dr. Ricardo Rocha GRAM POS BACILLI Normal [facility] Comment on above: Performed By: #### G STAIN ####[facility] Dqnifdhsgn312[address] [place], [place] [address]Dr. Ricardo Rocha GRAM POSITIVE COCCI MANY Normal [facility] Comment on above: Performed By: #### G STAIN ####[facility] Xothjpeymu035[address] [place], [place] [address]Dr. Ricardo Rocha GRAM STAIN SOURCE Left great toe tissu e after washout-clean Normal The [facility] Comment on above: Performed By: #### G STAIN ####[facility] Fjltvcvsza8665[address] [place], [place] [address]Dr. Ricardo Rocha GS_DIPTH Normal The [facility] Comment on above: Performed By: #### G STAIN ####[facility] Ucprpsywka3399[address] [place], [place] [address]Dr. Ricardo Rocha WBC RARE Normal The [facility] Comment on above: Performed By: #### G STAIN ####[facility] Wyhwbztlvj5408[address] [place], [place] [address]Dr. Ricardo Rocha DIPHTHEROIDS Normal The [facility] Comment on above: Performed By: #### G STAIN ####[facility] Ukdufrmbho645966 [address] [place], [place] [address]Dr. Ricardo Rocha EPITHELIALS Normal The [facility] Comment on above: Performed By: #### G STAIN ####[facility] Svbpqjzzzd4479[address] [place], [place] [address]Dr. Ricardo Rocha FUNGAL ELEMENTS Normal The [facility] Comment on above: Performed By: #### G STAIN ####[facility] Scmlibormo[address] [place] [phone]. Ricardo Rocha GRAM NEG BACILLI Normal [facility] Comment on above: Performed By: #### G STAIN ####[facility] Lkgramoown5766 [place] [address]Dr. Ricardo Rocha GRAM NEG DIPPLOCOCCI Normal The [facility] Comment on above: Performed By: #### G STAIN ####[facility] Eqwzewhiki7865 [place] [address]Dr. Ricardo Rocha GRAM POS BACILLI Normal [facility] Comment on above: Performed By: #### G STAIN ####[facility] Pnbnhkypqj3052 [place] [address]Dr. Ricardo Rocha GRAM POSITIVE COCCI RARE Normal [facility] Comment on above: Performed By: #### G STAIN ####[facility] Cmlybchacz0714[address] [place], [place] [address]Dr. Ricardo Rocha GRAM STAIN SOURCE Left great toe Normal The [facility] Comment on above: Performed By: #### G STAIN ####[facility] Fabzmakbit8877[address] [place], [place] [address]Dr. Ricardo Rocha GS_DIPTH Normal The [facility] Comment on above: Performed By: #### G STAIN ####[facility] Olroenphee158366 [address] [place], [place] [address]Dr. Ricardo Rocha WBC RARE Normal The [facility] Comment on above: Performed By: #### G STAIN ####[facility] Tdmkuhqlox12[address] [place] [address]Dr. Ricardo Rocha DIPHTHEROIDS Normal The [facility] Comment on above: Performed By: #### G STAIN ####[facility] Dlrcxywiyi9248 [place] [address]Dr. Ricardo Rocha EPITHELIALS Normal The [facility] Comment on above: Performed By: #### G STAIN ####[facility] Jdgeazurkg3494 [place] [address]Dr. Ricardo Rocha FUNGAL ELEMENTS Normal The [facility] Comment on above: Performed By: #### G STAIN ####[facility] Thkbjnxiat3690[address] [place], [place] [address]Dr. Ricardo Rocha GRAM NEG BACILLI Normal [facility] Comment on above: Performed By: #### G STAIN ####[facility] Qphidcckev9628 [place] [address]Dr. Ricardo Rocha GRAM NEG DIPPLOCOCCI Normal The [facility] Comment on above: Performed By: #### G STAIN ####[facility] Qmrxwhhzud819466 [address] [place], [place] [address]Dr. Ricardo Rocha GRAM POS BACILLI Normal [facility] Comment on above: Performed By: #### G STAIN ####[facility] Wiyiksczkw297566 [address] [place], [place] [address]Dr. Ricardo Rocha GRAM POSITIVE COCCI FEW Normal [facility] Comment on above: Performed By: #### G STAIN ####[facility] Oifrqrakpp1036[address] [place], [place] [address]Dr. Ricardo Rocha GRAM STAIN SOURCE Left great toe abscess Normal The [facility] Comment on above: Performed By: #### G STAIN ####[facility] Zdymnsumke396266 [address] [place], [place] [address]Dr. Ricardo Rocha GS_DIPTH Normal The [facility] Comment on above: Performed By: #### G STAIN ####[facility] Kuwmiywabd975[address] [place], [place] [address]Dr. Ricardo Rocha WBC FEW Normal [facility] Comment on above: Performed By: #### G STAIN ####[facility] Bmtlahwotl1816[address] [place], [place] [address]Dr. Ricardo Rocha LACTATE/LACTIC ACIDon 2021 Lactate [Moles/Vol] 2.2 mmol/L Critically high 0.4-1.9 [facility] Comment on above: Performed By: #### L ACT ####[facility] Zdjcavbntd4655[address] [place], [place] [address]Dr. Ricardo Rocha POINT OF CARE GLUCOSEon 05-22 Glucose [Mass/Vol] 133 mg/dL Critically high 74-106 [facility] Comment on above: Performed By: #### P OCGLUC ####[facility] Bhunptlazp359866 [address] [place], [place] [address]Dr. Ricardo Rocha Glucose [Mass/Vol] 215 mg/dL Critically high -106 [facility] Comment on above: Performed By: #### P OCGLUC ####[facility] Tpfowbycfs97[address] [place] [address]Dr. Ricardo Rocha Glucose [Mass/Vol] 207 mg/dL Critically high -106 [facility] Comment on above: Performed By: #### P OCGLUC ####[facility] Kheizkptus53[address] [place] [address]Dr. Ricardo Rocha Glucose [Mass/Vol] 314 mg/dL Critically high -106 [facility] Comment on above: Performed By: #### P OCGLUC ####[facility] Sdhrbvzexm967[address] [place], [place] [address]Dr. Ricardo Rocha Glucose [Mass/Vol] 496 mg/dL Critically high -106 [facility] Comment on above: Performed By: #### P OCGLUC ####[facility] Nocrgjaert154366 [address] [place], [place] [address]Dr. Ricardo Rocha Glucose [Mass/Vol] 561 mg/dL Critically high -[address] [place] [address] Comment on above: Result Comment: Prev iously Confirmed Performed By: #### P OCGLUC ####[facility] Udynrunzzn810766 [address] [place], [place] [address]Dr. Ricardo Aj PROF 14(COMP METB)on 022 Albumin [Mass/Vol] 2.4 g/dL Critically low 3.4-5.0 Th [facility] Comment on above: Performed By: #### C MP ####[facility] Jaxlzooiks475[address] [place] [address]Dr. Ricardo Aj Albumin/Globulin [Mass ratio] 0.4 {ratio} Normal [facility] Comment on above: Performed By: #### C MP ####[facility] Vjjcnkqtmb7926[address] [place], [place] [address]Dr. Ricardo Aj ALP [Catalytic activity/Vol] 82 U/L Normal 46-116 [facility] Comment on above: Performed By: #### C MP ####[facility] Rxyscyucpp815[address] [place], [place] [address]Dr. Ricardo Rocha ALT [Catalytic activity/Vol] 12 U/L Critically low 14-59 [facility] Comment on above: Performed By: #### C MP ####[facility] Tvmfqojify6[address] [place] [address]Dr. Ricardo Rocha Anion gap [Moles/Vol] 15.1 mmol/L Normal [facility] Comment on above: Performed By: #### C MP ####[facility] Qgwlnultfg5822 [place] [address]Dr. Ricardo Rocha AST [Catalytic activity/Vol] 14 U/L Critically low 15-37 The [facility] Comment on above: Performed By: #### C MP ####[facility] Xzsotgvpck4437[address] [place], [place] [address]Dr. Ricardo Rocha Bilirubin [Mass/Vol] 0.4 mg/dL Normal 0.2-1.0 [facility] Comment on above: Performed By: #### C MP ####[facility] Awtraznczl4079[address] [place], [place] [address]Dr. Ricardo Rocha Calcium [Mass/Vol] 8.8 mg/dL Normal 8.5-10.1 [facility] Comment on above: Performed By: #### C MP ####[facility] Vnpztigkwr640[address] [place], [place] [address]Dr. Ricardo Rocha Chloride [Moles/Vol] 105 mmol/L Normal 98-107 [facility] Comment on above: Performed By: #### C MP ####[facility] Smrtlyfgmj0209 [place] [address]Dr. Ricardo Rocha CO2 [Moles/Vol] 21.2 mmol/L Normal 21.0-32.0 [facility] Comment on above: Performed By: #### C MP ####[facility] Wlngynqtib364[address] [place], [place] [address]Dr. Ricardo Rocha Creatinine [Mass/Vol] 2.03 mg/dL Critically high 0.55-1.02 [facility] Comment on above: Performed By: #### C MP ####[facility] Kbnhpfzlcn8955[address] [place], [place] [address]Dr. Ricardo Rocha EGFR-AF BRITISH 30 mL/min/1.73m2 Critically low >=60 [facility] Comment on above: Performed By: #### C MP ####[facility] Mqgxrnxyfv09[address] [place] [address]Dr. Ricardo Rocha EGFR-NON AF BRITISH 25 mL/min/1.73m2 Critically low >=60 [facility] Comment on above: Performed By: #### C MP ####[facility] Ifhxopcbcs622[address] [place], [place] [address]Dr. Ricardo Aj Globulin (S) [Mass/Vol] 5.7 g/dL Normal [facility] Comment on above: Performed By: #### C MP ####[facility] Bdcfbjscas420966 [address] [place], [place] [address]Dr. Ricardo Aj Glucose [Mass/Vol] 309 mg/dL Critically high 74-106 [facility] Comment on above: Performed By: #### C MP ####[facility] Exijstrgig3035[address] [place], [place] [address]Dr. Ricardo Aj Potassium [Moles/Vol] 3.3 mmol/L Critically low 3.5-5.1 [facility] Comment on above: Performed By: #### C MP ####[facility] Xgrykipqlk6917[address] [place], [place] [address]Dr. Ricardo Aj Protein [Mass/Vol] 8.1 g/dL Normal 6.4-8.2 [facility] Comment on above: Performed By: #### C MP ####[facility] Apycxoowro960[address] [place], [place] [address]Dr. Ricardo Aj Sodium [Moles/Vol] 138 mmol/L Normal 136-145 [facility] Comment on above: Performed By: #### C MP ####[facility] Pqqtycarsv07[address] [place], [place] [address]Dr. Ricardo Aj Urea nitrogen [Mass/Vol] 37.0 mg/dL Critically high 7.0-18.0 [facility] Comment on above: Performed By: #### C MP ####[facility] Fzvjdfkldh5039[address] [place], [place] [address]Dr. Ricardo Aj Urea nitrogen/Creatinine [Mass ratio] 18.2 mg/mg Normal The [facility] Comment on above: Performed By: #### C MP ####[facility] Ltqfdfsfka6[address] [place] [address]Dr. Ricardo Rocha SED RATE WESTERGRENon 2021 SED RATE >130 Critically high <=30 [facility] Comment on above: Performed By: #### S EDR ####[facility] Gdggwtftae32[address] [place] [address]Dr. Ricardo Aj URINE MICROSCOPIC ONLYon AMORPHOUS CRYSTALS MODERATE Normal [facility] Comment on above: Performed By: #### JOSLYN ELENARO ####[facility] Emibvpbwio16[address] [place] [address]Dr. Ricardo Rocha BACTERIA MODERATE Abnormal NONE SEEN The [facility] Comment on above: Performed By: #### LOLY ELENAICRO ####[facility] Unuqypurbw12[address] [place] [address]Dr. Ricardo Rocha Bacteria identified Cx Nom (U) INDICATED Normal The [facility] Comment on above: Performed By: #### LOLY ELENAICRO ####[facility] Cdupjzenqi55[address] [place] [address]Dr. Ricardo Rocha CAST NONE SEEN Normal NONE SEEN The [facility] Comment on above: Performed By: #### Jennifer HINOJOSA UMICRO ####[facility] Ehayoucgst13[address] [place] [address]Dr. Ricardo Rocha Crystals LM Nom (Urine sed) SEEN Abnormal NONE SEEN The [facility] Comment on above: Performed By: #### Jennifer HINOJOSA UMICRO ####[facility] Lczhqqpimw18[address] [place] [address]Dr. Ricardo Rocha Epithelial cells LM Ql (Urine sed) NONE SEEN Normal NONE SEEN /RARE The [facility] Comment on above: Performed By: #### Jennifer HINOJOSA UMICRO ####[facility] Rubxncrdqq65[address] [place] [address]Dr. Ricardo Rocha MUCOUS NONE SEEN Normal NONE SEEN The [facility] Comment on above: Performed By: #### SHAYNA ELENA ####[facility] Zekgesndsf9[address] [place] [phone]. Ricardo Rocha RBC 2-5 Abnormal 0-2 [facility] Comment on above: Performed By: #### E SHAYNA HINOJOSA ####[facility] Iwsjmbatia0434 [place] [phone]. Ricardo Rocha WBC 5-10 Abnormal NONE SEEN The [facility] Comment on above: Performed By: #### SHAYNA ELENA ####[facility] Jgjmfwayit55[address] [place] [phone]. Ricardo Rocha XR CHEST 1 Von 06-11-2022 XR CHEST 1 V Normal The [facility] XR FOOT LT MIN 3 VIEWSon XR FOOT LT MIN 3 VIEWS Normal The [facility] XR FOOT LT MIN 3 VIEWS Normal The [facility] ACETONE SERUMon 06-10-2022 ACETONE Negative Normal NEGATIVE The [facility] Comment on above: Performed By: #### A CETON ####[facility] Aqfroonoga0642 [place] [phone]. Ricardo Rocha AMMONIAon 06-10-2022 Ammonia (P) [Mass/Vol] ug/dL Critically low The [facility] Comment on above: Performed By: #### A MM ####[facility] Zksybllxeo7892 [place] [phone]. Ricardo Rocha BLOOD CULTURE ID PANELon A. baumannii Not detected Normal NOT DETECTED [facility] Comment on above: Performed By: #### B CID2 ####[facility] Olkttyqecs2049 [place] [phone]. Ricardo Rocha Bacteriodes fragilis Not detected Normal NOT DETECTED The [facility] Comment on above: Performed By: #### B CID2 ####[facility] Dicdqjmumn7354 [place] [phone]. Ricardo Rocha BCID CONTROLS PASSED Normal [facility] Comment on above: Performed By: #### B CID2 ####[facility] Lfddqhmkpu7809 [place] [phone]. Ricardo Rocha BCIDBTHD BLOOD CULTURE BOTTLE INFORMATION [facility] Comment on above: Performed By: #### B CID2 ####[facility] Svvovuylaw7651 [place] [address]Dr. Yimarcial Rocha BCIDHD1 ANTIMICROBIAL RESISTANCE GENES [facility] Comment on above: Performed By: #### B CID2 ####[facility] Rukfloxhbo59[address] [place], [place] [address]Dr. Ricardo Rocha BCIDHD2 SEE BELOW [facility] Comment on above: Result Comment: Note : Antimicrobial resitance can occur via multiple mechanisms. A Not Detected result for the [employer] antomicrobial resistance gene assays does not indicate antimicrobial susceptibility. Subculturing is required for species identification and susceptibility testing of isolates. Performed By: #### B CID2 ####[facility] Jnirmrdxqs7020[address] [place], [place] [address]Dr. Ricardo Rocha BCIDHD3 Positive [facility] Comment on above: Performed By: #### B CID2 ####[facility] Kfkquhlqvi834[address] [place], [place] [address]Dr. Ricardo Rocha BCIDHD4 Negative [facility] Comment on above: Performed By: #### B CID2 ####[facility] Kdocnbmhaa4328[address] [place], [place] [address]Dr. Yimarcial Rcoha BCIDHD5 YEAST Normal [facility] Comment on above: Performed By: #### B CID2 ####[facility] Xboytuswsm512[address] [place], [place] [address]Dr. Ricardo Rocha Bottle Set: Set 1 Normal The [facility] Comment on above: Performed By: #### B CID2 ####[facility] Psjrjfzlnq115[address] [place], [place] [address]Dr. Yimarcial Rocha Bottle: Aerobic Normal The [facility] Comment on above: Performed By: #### B CID2 ####[facility] Jazcshgtlf405[address] [place], [place] [address]Dr. Yilan Rocha C. neoformans/gattii Not detected Normal NOT DETECTED [facility] Comment on above: Performed By: #### B CID2 ####[facility] Sygblzivvu1396 [place] [phone]. Yilan Rocha Lauren albicans Not detected Normal NOT DETECTED The [facility] Comment on above: Performed By: #### B CID2 ####[facility] Dihrhstrde8698 [place] [phone]. Yimarcial Rocha Lauren auris Not detected Normal NOT DETECTED The [facility] Comment on above: Performed By: #### B CID2 ####[facility] Zbsskgwbru8936 [place] [phone]. Yilan Rocha Lauren glabrata Not detected Normal NOT DETECTED The [facility] Comment on above: Performed By: #### B CID2 ####[facility] Ilgigvebft898[address] [place], [place] [address]Dr. Yimarcial Rocha Lauren Krusei Not detected Normal NOT DETECTED [facility] Comment on above: Performed By: #### B CID2 ####[facility] Mjiqdbszia00[address] [place], [place] [address]Dr. Yimarcial Rocha Lauren Parapsilosis Not detected Normal NOT DETECTED The [facility] Comment on above: Performed By: #### B CID2 ####[facility] Ypsilfnykn9833[address] [place], [place] [address]Dr. Yilan Rocha Lauren Tropicalis Not detected Normal NOT DETECTED [facility] Comment on above: Performed By: #### B CID2 ####[facility] Rwmnaqcgxv6133 [place] [phone]. Ricardo Rocha CTX-M Resistant Gene Not Applicable Normal NOT DETECTE D [facility] Comment on above: Performed By: #### B CID2 ####[facility] Djjqdnlhqn2426 [place] [phone]. Yilan Rocha E. Cloacae complex Not detected Normal NOT DETECTED [facility] Comment on above: Performed By: #### B CID2 ####[facility] Aiziohedle5[address] [place] [address]Dr. Yilan Rocha E. faecalis Not detected Normal NOT DETECTED The [facility] Comment on above: Performed By: #### B CID2 ####[facility] Eyxjrtofmu6599[address] [place], [place] [address]Dr. Ricardo Rocha E. faecium Not detected Normal NOT DETECTED The [facility] Comment on above: Performed By: #### B CID2 ####[facility] Npaeahlfzn10[address] [place], [place] [address]Dr. Ricardo Rocha Enterobacteriaceae Not detected Normal NOT DETECTED [facility] Comment on above: Performed By: #### B CID2 ####[facility] Dcoootqbhf4047[address] [place], [place] [address]Dr. Ricardo Rocha Escherichia coli Not detected Normal NOT DETECTED The [facility] Comment on above: Performed By: #### B CID2 ####[facility] Qibpcpnepc122[address] [place], [place] [address]Dr. Ricardo Rocha H. influenzae Not detected Normal NOT DETECTED The [facility] Comment on above: Performed By: #### B CID2 ####[facility] Ibjyrsusvr977466 [address] [place], [place] [address]Dr. Ricardo Rocha IMP Resistant Gene Not Applicable Normal NOT DETECTED The [facility] Comment on above: Performed By: #### B CID2 ####[facility] Mvpcznekqc7930[address] [place], [place] [address]Dr. Ricardo Rocha K. oxytoca Not detected Normal NOT DETECTED The [facility] Comment on above: Performed By: #### B CID2 ####[facility] Xlrmpmcbne274[address] [place], [place] [address]Dr. Nanomarcial Rocha K. pneumoniae Not detected Normal NOT DETECTED The [facility] Comment on above: Performed By: #### B CID2 ####[facility] Jtxbibypib739166 [address] [place], [place] [address]Dr. Ricardo Rocha Klebsiella aerogenes Not detected Normal NOT DETECTED The [facility] Comment on above: Performed By: #### B CID2 ####[facility] Ujpfbaxifk716[address] [place], [place] [address]Dr. Ricardo Rocha KPC Resistant Gene Not Applicable Normal NOT DETECTED The [facility] Comment on above: Performed By: #### B CID2 ####[facility] Bjspwgdcyy2101[address] [place], [place] [address]Dr. Ricardo Rocha List. monocytogenes Not detected Normal NOT DETECTED [facility] Comment on above: Performed By: #### B CID2 ####[facility] Brqjtczcdo3921 [place] [address]Dr. Ricardo Rocha Mcr-1 Resistant Gene Not Applicable Normal NOT DETECTE D [facility] Comment on above: Performed By: #### B CID2 ####[facility] Zlnhxgmlnu9702 [place] [address]Dr. Ricardo Rocha mecA/C Not Applicable Normal NOT DETECTED [facility] Comment on above: Performed By: #### B CID2 ####[facility] Raddaetflg7134[address] [place], [place] [address]Dr. Ricardo Rocha mecA/C MREJ Detected Abnormal NOT DETECTED [facility] Comment on above: Performed By: #### B CID2 ####[facility] Morvlmihgg20[address] [place], [place] [address]Dr. Ricardo Rocha N. meningitidis Not detected Normal NOT DETECTED [facility] Comment on above: Performed By: #### B CID2 ####[facility] Jcrzahhokm227[address] [place], [place] [address]Dr. Ricardo Rocha NDM Resistant Gene Not Applicable Normal NOT DETECTED The [facility] Comment on above: Performed By: #### B CID2 ####[facility] Dqftqgfdmt135[address] [place], [place] [address]Dr. Ricardo Rocha Oxa-48-like Not Applicable Normal NOT DETECTED The [facility] Comment on above: Performed By: #### B CID2 ####[facility] Nesoutrprr8720[address] [place], [place] [address]Dr. Ricardo Rocha Proteus Not detected Normal NOT DETECTED The [facility] Comment on above: Performed By: #### B CID2 ####[facility] Nxgsotxppr[address] [place], [place] [address]Dr. Ricardo Rocha Pseud. aeruginosa Not detected Normal NOT DETECTED The [facility] Comment on above: Performed By: #### B CID2 ####[facility] Xcsuiptgcd2944[address] [place], [place] [address]Dr. Ricardo Rocha S. maltophilia Not detected Normal NOT DETECTED The [facility] Comment on above: Performed By: #### B CID2 ####[facility] Cxmavomblu8998[address] [place], [place] [address]Dr. Ricardo Rocha Salmonella Not detected Normal NOT DETECTED The [facility] Comment on above: Performed By: #### B CID2 ####[facility] Nlkdcwmxom918966 [address] [place], [place] [address]Dr. Nanomarcial Rocha Seratia marcescens Not detected Normal NOT DETECTED [facility] Comment on above: Performed By: #### B CID2 ####[facility] Ligksvxedb2495[address] [place], [place] [address]Dr. Nanomarcial Rocha Site: LEFT AC IV START Normal The [facility] Comment on above: Performed By: #### B CID2 ####[facility] Jqqivhevby2500[address] [place], [place] [address]Dr. Ricardo Rocha Staph. aureus Detected Critically abnormal NOT DETECTED The [facility] Comment on above: Performed By: #### B CID2 ####[facility] Qvwapcvqrd3337[address] [place], [place] [address]Dr. Nanomarcial Rocha Staph. epidermidis Not detected Normal NOT DETECTED [facility] Comment on above: Performed By: #### B CID2 ####[facility] Hzlipfcvsi737566 [address] [place], [place] [address]Dr. Ricardo Rocha Staph. lugdunensis Not detected Normal NOT DETECTED [facility] Comment on above: Performed By: #### B CID2 ####[facility] Ytagmwnlul1700[address] [place], [place] [address]Dr. Ricardo Rocha Staphylococcus Detected Critically abnormal NOT DETECTED The [facility] Comment on above: Performed By: #### B CID2 ####[facility] Dgfzefrovs4540[address] [place], [place] [address]Dr. Ricardo Rocha Strep. agalactiae Not detected Normal NOT DETECTED The [facility] Comment on above: Performed By: #### B CID2 ####[facility] Ijijojrmhw1320[address] [place], [place] [address]Dr. Ricardo Rocha Strep. pneumoniae Not detected Normal NOT DETECTED The [facility] Comment on above: Performed By: #### B CID2 ####[facility] Rvpsthjxwf2557[address] [place], [place] [address]Dr. Ricardo Rocha Strep. pyogenes Not detected Normal NOT DETECTED The [facility] Comment on above: Performed By: #### B CID2 ####[facility] Mmkmcslvig5911[address] [place], [place] [address]Dr. Ricardo Rocha Streptococcus Not detected Normal NOT DETECTED The [facility] Comment on above: Performed By: #### B CID2 ####[facility] Faossvjffy737066 [address] [place], [place] [address]Dr. Ricardo Rocha Layne/B Resist. Gene Not Applicable Normal NOT DETECTED The [facility] Comment on above: Performed By: #### B CID2 ####[facility] Qfifnspupx465666 [address] [place], [place] [address]Dr. Ricardo Rocha VIM Resistant Gene Not Applicable Normal NOT DETECTED [facility] Comment on above: Performed By: #### B CID2 ####[facility] Ehdlwgidth812566 [address] [place], [place] [address]Dr. Ricardo Rocha [facility] 02 MODE ROOM AIR Normal [facility] Comment on above: Performed By: #### A BG ####[facility] Ntvyeiaydi267566 [address] [place], [place] [address]Dr. Ricardo Rocha ALLENS TEST Positive Normal [facility] Comment on above: Performed By: #### A BG ####[facility] Jjpyqzripi996[address] [place], [place] [address]Dr. Ricardo Rocha Base excess Calc (Bld) [Moles/Vol] -4.5000 mmol/L Critically low -2.0-2.0 The [facility] Comment on above: Performed By: #### A BG ####[facility] Lleeqqbndr689[address] [place], [place] [address]Dr. Ricardo Rocha BIPAP PRESSURE Normal [facility] Comment on above: Performed By: #### A BG ####[facility] Frxkeomlzm354[address] [place], [place] [address]Dr. Ricardo Rocha CPAP Normal [facility] Comment on above: Performed By: #### A BG ####[facility] Ks[address]gvmkzs26[address] [place] [address]Dr. Ricardo Rocha FIO2 Normal [facility] Comment on above: Performed By: #### A BG ####[facility] Imveizvjec030[address] [place], [place] [address]Dr. Ricardo Rocha HCO3 (Bld) [Moles/Vol] 21.4 mmol/L Critically low 22.0-26.0 [facility] Comment on above: Performed By: #### A BG ####[facility] Rtxuwtbxuy1510[address] [place], [place] [address]Dr. Ricardo Rocha LPM Normal The [facility] Comment on above: Performed By: #### A BG ####[facility] Hmxwoxsgqk664066 [address] [place], [place] [address]Dr. Ricardo Rocha MINUTE VOLUME Normal [facility] Comment on above: Performed By: #### A BG ####[facility] Nrbfyfdupt7039[address] [place], [place] [address]Dr. Ricardo Rocha Oxygen (Bld) [Partial pressure] 66.4 mm[Hg] Critically low 80.0-100.0 [facility] Comment on above: Performed By: #### A BG ####[facility] Xuemlcfrmj2665[address] [place], [place] [address]Dr. Ricardo Rocha Oxygen saturation in Blood 94.6 % Critically low 95.0-100.0 [facility] Comment on above: Performed By: #### A BG ####[facility] Wgzoilumlp6477[address] [place], [place] [address]Dr. Ricardo Rocha PCO2 29.4 mmHg Critically low 35.0-45.0 The [facility] Comment on above: Performed By: #### A BG ####[facility] Ycouvzvwmr053166 [address] [place], [place] [address]Dr. Ricardo Rocha PEEP Normal The [facility] Comment on above: Performed By: #### A BG ####[facility] Uzrmgiygdt2413[address] [place], [place] [address]Dr. Ricardo Rocha pH (Bld) 7.436 [pH] Normal 7.350-7.450 The [facility] Comment on above: Performed By: #### A BG ####[facility] Ccowcgaguv8194 [place] [address]Dr. Ricardo Rocha PIP Normal [facility] Comment on above: Performed By: #### A BG ####[facility] Ddbiwfgbas3904 [place] [address]Dr. Ricardo Rocha PS Normal [facility] Comment on above: Performed By: #### A BG ####[facility] Nezmsqzbnt2591 [place] [address]Dr. Ricardo Rocha PUNCTURE SITE LR Normal The [facility] Comment on above: Performed By: #### A BG ####[facility] Cjiwlymrxi8[address] [place], [place] [address]Dr. Ricardo Rocha RATE [facility] Comment on above: Performed By: #### A BG ####[facility] Gvsxrhxudp0534[address] [place], [place] [address]Dr. Ricardo Rocha VENT MODE [facility] Comment on above: Performed By: #### A BG ####[facility] Xlbccsfldp339[address] [place], [place] [address]Dr. Ricardo Rocha VT [facility] Comment on above: Performed By: #### A BG ####[facility] Orgtjvgpbe908866 [address] [place], [place] [address]Dr. Ricardo Rocha CBC W MANUAL DIFFon 06-10-20 22 ATYPICAL LYMPH # [facility] Comment on above: Performed By: #### C BCMAN ####[facility] Urnfjwnnnc0965[address] [place], [place] [address]Dr. Ricardo Rocha ATYPICAL LYMPH % Normal [facility] Comment on above: Performed By: #### C BCMAN ####[facility] Bxbqfknofy0997[address] [place], [place] [address]Dr. Ricardo Rocha BAND # 1.3 103/ul Critically high 0.0-0.3 [place] Comment on above: Performed By: #### C BCMAN ####[facility] Qsmufictsd3918[address] [place], [place] [address]Dr. Ricardo Rocha BAND % 12 % Critically high 0-5 The [facility] Comment on above: Performed By: #### C BCRED ####[facility] Bckbnmkrjy7[address] [place] [phone]. Ricardo Rocha BASOM # 0.00 103/ul Normal 0.00-0.10 The [facility] Comment on above: Performed By: #### C BCRED ####[facility] Hkqpdetrdl1039 [place] [phone]. Ricardo Rocha BASOM % 0.0 % Critically low 0.2-2.0 The [facility] Comment on above: Performed By: #### C BCRED ####[facility] Vewmlmdasi7278 [place] [phone]. Ricardo Rocha BLAST # Normal [facility] Comment on above: Performed By: #### C DWAINE ####[facility] Yirwrlwqfy8120[address] [place], [place] [address]Dr. Ricardo Rocha BLAST % Normal [facility] Comment on above: Performed By: #### C BCRED ####[facility] Yjaiovlemd6815[address] [place], [place] [address]Dr. Ricardo Rocha CORRECTED WBC Normal 4.0-11.0 The [facility] Comment on above: Performed By: #### C BCRED ####[facility] Tnwrtolzmv314[address] [place], [place] [address]Dr. Ricardo Rocha EOS # 0.00 103/ul Normal 0.00-0.70 The [facility] Comment on above: Performed By: #### C BCRED ####[facility] Ufchxjdwqz7372 [place] [address]Dr. Ricardo Rocha EOS% 0.0 % Critically low 0.9-7.0 The [facility] Comment on above: Performed By: #### C BCRED ####[facility] Uiemtlhyyc215[address] [place], [place] [address]Dr. Ricardo Rocha HCT 35.5 % Critically low 36.0-48.0 The [facility] Comment on above: Performed By: #### C BCRED ####[facility] Llzcymtxba512[address] [place], [place] [address]Dr. Ricardo Rocha HGB 11.4 g/dl Critically low 12.0-16.0 [facility] Comment on above: Performed By: #### C DWAINE ####[facility] Lbngbezhsa3486 [place] [phone]. Ricardo Rocha HYPERSEG NEUT 3+ Normal [facility] Comment on above: Performed By: #### C DWAINE ####[facility] Nlcffjnwgo6489 [place], [place] [address]Ot. Ricardo Rocha LYMPHM # 0.21 103/ul Critically low 1.20-3.80 [place] Comment on above: Performed By: #### C DWAINE ####[facility] Eigukrtcqp5521 [place] [phone]. Ricardo Rocha LYMPHM% 2.0 % Critically low 20.5-60.0 [facility] Comment on above: Performed By: #### C DWAINE ####[facility] Ymjknhyruo2587 [place] [phone]. Ricardo Rocha MCH 25.3 pg Critically low 26.7-34.0 [facility] Comment on above: Performed By: #### C DWAINE ####[facility] Poomrjrsqi6026 [place] [phone]. Ricardo Rocha MCHC 32.1 g/dl Normal 29.9-35.2 [facility] Comment on above: Performed By: #### C DWAINE ####[facility] Rimhjzhohs8049 [place] [phone]. Ricardo Rocha MCV 78.9 fL Critically low 81.0-99.0 The [facility] Comment on above: Performed By: #### C DWAINE ####[facility] Vznguzisfj2579 [place] [phone]. Rciardo Rocha METAMYELOCYTE # Normal The [facility] Comment on above: Performed By: #### C DWAINE ####[facility] Bytrlxwbia1361 [place], [place] [address]Xc. Ricardo Rocha METAMYELOCYTE % Normal The [facility] Comment on above: Performed By: #### C DWAINE ####[facility] Xmfotccihu3959 [place] [phone]. Ricardo Rocha MONOM# 0.32 103/ul Normal 0.30-0.80 The [facility] Comment on above: Performed By: #### C DWAINE ####[facility] Dyycnggsrz3711 [place] [phone]. Ricardo Rocha MONOM% 3.0 % Normal 1.7-12.0 The [facility] Comment on above: Performed By: #### C DWAINE ####[facility] Avccfudwal8410 [place] [phone]. Ricardo Rocha MPV 10.9 fL Normal 9.5-13.5 The [facility] Comment on above: Performed By: #### C DWAINE ####[facility] Cpqblmmzuq125[address] [place], [place] [address]Dr. Ricardo Rocha MYELOCYTE # Normal The [facility] Comment on above: Performed By: #### C DWAINE ####[facility] Vhsfklazlh75[address] [place], [place] [address]Dr. Ricardo Rocha MYELOCYTE % Normal The [facility] Comment on above: Performed By: #### C DWAINE ####[facility] Vfcaioechf50[address] [place], [place] [address]Dr. Ricardo Rocha NRBC Normal The [facility] Comment on above: Performed By: #### C DWAINE ####[facility] Bhylmikspk4[address] [place], [place] [address]Dr. Ricardo Rocha PLT 180 103/ul Normal 150-450 The [facility] Comment on above: Performed By: #### C DWAINE ####[facility] Rfqujarteo2233 [place] [phone]. Ricardo Rocha RBC 4.50 106/ul Normal 4.20-5.40 The [facility] Comment on above: Performed By: #### C DWAINE ####[facility] Lpoftdsbdp3238 [place] [address]Dr. Ricardo Rocha RDW 12.8 % Normal 11.0-15.0 The [facility] Comment on above: Performed By: #### C DWAINE ####[facility] Jlnbowzqaj9541 [place] [phone]. Ricardo Rocha SEG # 8.71 103/ul Critically high 1.40-6.50 [facility] Comment on above: Performed By: #### C BCRED ####[facility] Mimkhzswiu0536 [place] [phone]. Ricardo Rocha SEG % 83.0 % Critically high 43.0-75.0 The [facility] Comment on above: Performed By: #### C BCMAN ####[facility] Evxdmzdwqa7264 [place] [phone]. Ricardo Rocha TOXIC GRANULATION 2+ Normal [facility] Comment on above: Performed By: #### C DWAINE ####[facility] Jwcicnvuvn4605 [place] [phone]. Ricardo Rocha WBC 10.5 103/ul Normal 4.0-11.0 [facility] Comment on above: Performed By: #### C DWAINE ####[facility] Nhrcpdxczm2841 [place] [address]Dr. Ricardo Rocha CULTURE BLOODon 06-10-2022 Microscopic examination of blood, culture Culture Observations: Positive blood culture. Pediatric bottle. Culture Observations: Please refer to for susceptibility testing. Isolate 1 Staphylococcus aureus Growth of Normal [facility] Comment on above: Performed By: #### B LDCX2 ####[facility] Efvkxpzrmz1430 [place] [address]Dr. Ricarod Aj LACTATE/LACTIC ACIDon 2021 Lactate [Moles/Vol] 1.9 mmol/L Normal 0.4-1.9 [facility] Comment on above: Performed By: #### L ACT ####[facility] Qheylpbpvx3440 [place] [address]Dr. Ricardo Rocha LIPASEon 06-10-2022 Lipase [Catalytic activity/Vol] 164.0 U/L Normal 73.0-393.0 [facility] Comment on above: Performed By: #### H STROPN, LIPA, CMP, TSH ####[facility] Fkcuzyrgeg68[address] [place] [address]Dr. Ricardo Rocha POINT OF CARE GLUCOSEon 05-22 Glucose [Mass/Vol] 583 mg/dL Critically high 74-106 T [facility] Comment on above: Result Comment: Resu lt Not Confirmed Performed By: #### P OCGLUC ####[facility] Tnrwubeabw2626 [place] [address]Dr. Ricardo Rocha PROF 14(COMP METB)on 022 Albumin [Mass/Vol] 3.0 g/dL Critically low 3.4-5.0 Th [facility] Comment on above: Performed By: #### H STROPN, LIPA, CMP, TSH ####[facility] Niwgphrelz2801 [place] [address]Dr. Ricardo Rocha Albumin/Globulin [Mass ratio] 0.5 {ratio} Normal [facility] Comment on above: Performed By: #### H STROPN, LIPA, CMP, TSH ####[facility] Xhjmhxpjol0567 [place] [address]Dr. Ricardo Rocha ALP [Catalytic activity/Vol] 116 U/L Normal 46-116 [facility] Comment on above: Performed By: #### H STROPN, LIPA, CMP, TSH ####[facility] Hcvivpsuxx2060 [place] [address]Dr. Ricardo Rocha ALT [Catalytic activity/Vol] 15 U/L Normal 14-59 [facility] Comment on above: Performed By: #### H STROPN, LIPA, CMP, TSH ####[facility] Dqnjlaosel6209 [place] [address]Dr. Ricardo Rocha Anion gap [Moles/Vol] 15.7 mmol/L Normal [facility] Comment on above: Performed By: #### H STROPN, LIPA, CMP, TSH ####[facility] Fxodawdoml0527 [place] [address]Dr. Ricardo Rocha AST [Catalytic activity/Vol] 16 U/L Normal 15-37 [facility] Comment on above: Performed By: #### H STROPN, LIPA, CMP, TSH ####[facility] Ornhqurrfi9079 [place] [address]Dr. Ricardo Rocha Bilirubin [Mass/Vol] 0.5 mg/dL Normal 0.2-1.0 [facility] Comment on above: Performed By: #### H STROPN, LIPA, CMP, TSH ####[facility] Atjwnlcqla8470 [place] [address]Dr. Ricardo Rocha Calcium [Mass/Vol] 9.4 mg/dL Normal 8.5-10.1 [facility] Comment on above: Performed By: #### H STROPN, LIPA, CMP, TSH ####[facility] Mtwucthjvc9337 [place] [address]Dr. Ricardo Rocha Chloride [Moles/Vol] 95 mmol/L Critically low 98-107 The [facility] Comment on above: Performed By: #### H STROPN, LIPA, CMP, TSH ####[facility] Ytguxbdfcr4654 [place] [address]Dr. Ricardo Rocha CO2 [Moles/Vol] 22.1 mmol/L Normal 21.0-32.0 [facility] Comment on above: Performed By: #### H STROPN, LIPA, CMP, TSH ####[facility] Shafkvkvrh0083 [place] [address]Dr. Ricardo Rocha Creatinine [Mass/Vol] 2.23 mg/dL Critically high 0.55-1.02 [facility] Comment on above: Performed By: #### H STROPN, LIPA, CMP, TSH ####[facility] Gtcwlczcqz9940 [place] [address]Dr. Ricardo Rocha EGFR-AF BRITISH 27 mL/min/1.73m2 Critically low >=60 The [facility] Comment on above: Performed By: #### H STROPN, LIPA, CMP, TSH ####[facility] Ntqvtbrdvy6779 [place] [address]Dr. Ricardo Rocha EGFR-NON AF BRITISH 22 mL/min/1.73m2 Critically low >=60 The [facility] Comment on above: Performed By: #### H STROPN, LIPA, CMP, TSH ####[facility] Cjjjpunrzf05[address] [place], [place] [address]Dr. Ricardo Rocha Globulin (S) [Mass/Vol] 6.5 g/dL Normal [facility] Comment on above: Performed By: #### H STROPN, LIPA, CMP, TSH ####[facility] Cntienygbo2853 [place] [address]Dr. Ricardo Rocha Glucose [Mass/Vol] 593 mg/dL Critically high 74-106 [facility] Comment on above: Performed By: #### H STROPN, LIPA, CMP, TSH ####[facility] Dvbppaeqpg9654 [place] [address]Dr. Ricardo Rocha Potassium [Moles/Vol] 3.8 mmol/L Normal 3.5-5.1 [facility] Comment on above: Performed By: #### H STROPN, LIPA, CMP, TSH ####[facility] Vaivuzhens7545 [place] [address]Dr. Ricardo Rocha Protein [Mass/Vol] 9.5 g/dL Critically high 6.4-8.2 [facility] Comment on above: Performed By: #### H STROPN, LIPA, CMP, TSH ####[facility] Vctbhjwnit9[address] [place], [place] [address]Dr. Ricardo Rocha Sodium [Moles/Vol] 129 mmol/L Critically low 136-[address] [facility] Comment on above: Performed By: #### H STROPN, LIPA, CMP, TSH ####[facility] Rovzjghhdm0263 [place] [address]Dr. Ricardo Rocha Urea nitrogen [Mass/Vol] 40.0 mg/dL Critically high 7.0-18.0 [facility] Comment on above: Performed By: #### H STROPN, LIPA, CMP, TSH ####[facility] Inygdfubdv3129 [place] [address]Dr. Ricardo Rocha Urea nitrogen/Creatinine [Mass ratio] 17.9 mg/mg Normal [facility] Comment on above: Performed By: #### H STROPN, LIPA, CMP, TSH ####[facility] Wafbyhhzle75[address] [place] [address]Dr. Ricardo Rocha PROTIMEon 10--2022 INR Coag (PPP) [Relative time] 1.00 {INR} Normal The [facility] Comment on above: Performed By: #### P TT, PT ####[facility] Ntbtlfonhi4676 [place] [address]Dr. Ricardo Rocha INR GUIDELINES SEE BELOW Normal [facility] Comment on above: Result Comment: AMBROSIO RED INR: 2.0 - 3.0 CONDITIONS NOT LISTED BELOW 2.5 - 3.5 FOR PROSTHETIC HEART VALVE REPLACEMENT 2.5 - 3.5 RECURRENT THROMBOSIS Performed By: #### P TT, PT ####[facility] Gxlkwkqfxz3358 [place] [address]Dr. Ricardo Rocha PT Coag (PPP) [Time] 10.8 s Normal 9.0-11.6 The [facility] Comment on above: Performed By: #### P TT, PT ####[facility] Ljjaswbboo90[address] [place], [place] [address]Dr. Ricardo Rocha PTTon 06-10-2022 aPTT Coag (Bld) [Time] 31.7 s Normal 22.3-36.2 The [facility] Comment on above: Performed By: #### P TT, PT ####[facility] Mjbfbaqwse5[address] [place], [place] [address]Dr. Ricardo Rocha TROPONIN, HIGH SENSITIVITYon 06-10-2022 HSTROP 30.9 pg/mL Normal 4.0-51.3 The [facility] Comment on above: Result Comment: CUT- OFF POINTS HAVE BEEN ESTABLISHED BASED ON THE FOURTH UNIVERSAL DEFINITIONS OF MYOCARDIALINFARCTION. THE UPPER REFERENCE LIMIT (URL) OF TROPONIN, DEFINED THE 99TH PERCENTILE OFcTnI DISTRIBUTION IN A REFERENCE POPULATION, HAS BEEN CONFIRMED THE DECISION THRESHOLDFOR FL DIAGNOSIS. Performed By: #### H STROPN, LIPA, CMP, TSH ####[facility] Terxjbtxhq1885 [place] [address]Dr. Ricardo Rocha TSHon 06-10-2022 TSH 0.147 uIU/mL Critically low 0.358-3.740 [facility] Comment on above: Performed By: #### H STROPN, LIPA, CMP, TSH ####[facility] Pixqyefbsq4330 [place] [phone]. Ricardo Rocha XR FOOT ALINE MIN 3 VIEWSon XR FOOT ALINE MIN 3 VIEWS Normal The [facility] XR HAND RT MIN 3Von 06-02-20 XR HAND RT MIN 3V Normal The [facility] CULTURE WOUNDon 05-15-2022 CULTURE WOUND Normal [facility] Comment on above: Performed By: #### W OUNDCX ####[facility] Zwzymuktjv1415 [place] [address]Dr. Ricardo Aj CBC AUTO DIFFon 2022 BASO # 0.0 103/ul Normal 0.0-0.1 The [facility] Comment on above: Performed By: #### C BC ####[facility] Ojnlgtlfxl[address] [place], [place] [address]Dr. Nanomarcial Rocha Basophils/100 WBC (Bld) 0.7 % Normal 0.2-2.0 The [facility] Comment on above: Performed By: #### C BC ####[facility] Vhivelfzyw[address] [place], [place] [address]Dr. Ricardo Aj EO # 0.1 103/ul Normal 0.0-0.7 [facility] Comment on above: Performed By: #### C BC ####[facility] [address] [place], [place] [address]Dr. Ricardo Aj Eosinophils/100 WBC (Bld) 2.1 % Normal 0.9-7.0 [facility] Comment on above: Performed By: #### C BC ####[facility] V[address] [place] [address]Dr. Ricardo Aj Erythrocyte distribution width (RBC) [Ratio] 13.2 % Normal 11.0-15.0 The [facility] Comment on above: Performed By: #### C BC ####[facility] Y[address] [place], [place] [address]Dr. Nanomarcial Aj Hematocrit (Bld) [Volume fraction] 36.6 % Normal 36.0-48.0 The [facility] Comment on above: Performed By: #### C BC ####[facility] [address] [place] [phone]. Ricardo Rocha Hemoglobin (Bld) [Mass/Vol] 11.9 g/dL Critically low 12.0-16.0 The [facility] Comment on above: Performed By: #### C BC ####[facility] Pgpenpvxsl[address] [place] [phone]. Ricardo Rocha IG # 0.03 10e3/ul Normal 0.00-0.03 [facility] Comment on above: Performed By: #### C BC ####[facility] Ljuexkzuao[address] [place] [address]Dr. Ricardo Rocha IG % 0.5 % Normal 0.0-0.5 The [facility] Comment on above: Performed By: #### C BC ####[facility] Nfcadiradv[address] [place] [address]Dr. Ricardo Rocha LYMPH # 2.1 103/ul Normal 1.2-3.8 The [facility] Comment on above: Performed By: #### C BC ####[facility] Gqpagoibtv[address] [place] [address]Dr. Nanomarcial Rocha Lymphocytes/100 WBC (Bld) 33.8 % Normal 20.5-60.0 The [facility] Comment on above: Performed By: #### C BC ####[facility] [address] [place] [address]Dr. Ricardo Rocha MANUAL DIFF REQ NO Normal The [facility] Comment on above: Performed By: #### C BC ####[facility] T[address]tofuzaf[address] [place] [address]Dr. Ricardo Rocha MCH (RBC) [Entitic mass] 25.7 pg Critically low 26.7-34.0 The [facility] Comment on above: Performed By: #### C BC ####[facility] Hy[address]jes[address] [place], [place] [address]Dr. Ricardo Aj MCHC (RBC) [Mass/Vol] 32.5 g/dL Normal 29.9-35.2 The [facility] Comment on above: Performed By: #### C BC ####[facility] G[address]mywyur[address] [place] [phone]. Ricardo Rocha MCV (RBC) [Entitic vol] 79.0 fL Critically low 81.0-99.0 The [facility] Comment on above: Performed By: #### C BC ####[facility] [address]rqvm[address] [place] [phone]. Ricardo Rocha MONO # 0.4 103/ul Normal 0.3-0.8 The [facility] Comment on above: Performed By: #### C BC ####[facility] Egkerwelka[address] [place] [phone]. Ricardo Rocha Monocytes/100 WBC (Bld) 6.2 % Normal 1.7-12.0 The [facility] Comment on above: Performed By: #### C BC ####[facility] [address] [place], [place] [address]Dr. Ricardo Rocha NEUT # 3.5 103/ul Normal 1.4-6.5 The [facility] Comment on above: Performed By: #### C BC ####[facility] Og[address] [place], [place] [address]Dr. Ricardo Rocha Neutrophils/100 WBC (Bld) 56.7 % Normal 43.0-75.0 The [facility] Comment on above: Performed By: #### C BC ####[facility] Fsmlesthgj[address] [place] [phone]. Ricardo Rocha Platelet mean volume (Bld) [Entitic vol] 10.9 fL Normal 9.5-13.5 The [facility] Comment on above: Performed By: #### C BC ####[facility] Bjrgculsvx[address] [place] [phone]. Ricardo Rocha PLT 241 103/ul Normal 150-450 The [facility] Comment on above: Performed By: #### C BC ####[facility] Yipricpwcn[address] [place] [phone]. Ricardo Rocha RBC 4.63 106/ul Normal 4.20-5.40 The [facility] Comment on above: Performed By: #### C BC ####[facility] Wbtnadmcvx[address] [place] [address]Dr. Ricardo Aj WBC 6.1 103/ul Normal 4.0-11.0 [facility] Comment on above: Performed By: #### C BC ####[facility] U[address]we[address] [place], [place] [address]Dr. Ricardo Aj PROF CHEM 8 (BAS METB)on Anion gap [Moles/Vol] 11.8 mmol/L Normal [facility] Comment on above: Performed By: #### B MP ####[facility] [address] [place], [place] [address]Dr. Ricardo Aj Calcium [Mass/Vol] 9.2 mg/dL Normal 8.5-10.1 [facility] Comment on above: Performed By: #### B MP ####[facility] C[address]cuq[address] [place], [place] [address]Dr. Ricardo Rocha Chloride [Moles/Vol] 99 mmol/L Normal 98-107 The [facility] Comment on above: Performed By: #### B MP ####[facility] S[address] [place], [place] [address]Dr. Nanomarcial Rocha CO2 [Moles/Vol] 24.7 mmol/L Normal 21.0-32.0 The [facility] Comment on above: Performed By: #### B MP ####[facility] [address] [place], [place] [address]Dr. Ricardo Aj Creatinine [Mass/Vol] 1.48 mg/dL Critically high 0.55-1.02 [facility] Comment on above: Performed By: #### B MP ####[facility] [address]re[address] [place], [place] [address]Dr. Ricardo Rocha EGFR-AF BRITISH 43 mL/min/1.73m2 Critically low >=60 The [facility] Comment on above: Performed By: #### B MP ####[facility] [address] [place], [place] [address]Dr. Ricardo Rocha EGFR-NON AF BRITISH 36 mL/min/1.73m2 Critically low >=60 The [facility] Comment on above: Performed By: #### B MP ####[facility] V[address]qtarahk[address] [place] [phone]. Ricardo Rocha Glucose [Mass/Vol] 431 mg/dL Critically high 74-106 T [facility] Comment on above: Performed By: #### B MP ####[facility] Pkw[address]reppb04[address] [place], [place] [address]Ln. Ricardo Rocha Potassium [Moles/Vol] 4.5 mmol/L Normal 3.5-5.1 [facility] Comment on above: Performed By: #### B MP ####[facility] [address]zjh[address] [place] [phone]. Ricardo Rocha Sodium [Moles/Vol] 131 mmol/L Critically low 136-145 Th [facility] Comment on above: Performed By: #### B MP ####[facility] U[address]osdlmzg[address] [place] [phone]. Ricardo Rocha Urea nitrogen [Mass/Vol] 23.0 mg/dL Critically high 7.0-18.0 [facility] Comment on above: Performed By: #### B MP ####[facility] O[address]up[address] [place] [phone]. Ricardo Rocha Urea nitrogen/Creatinine [Mass ratio] 15.5 mg/mg Normal [facility] Comment on above: Performed By: #### B MP ####[facility] [address]vshuta[address] [place] [phone]. Ricardo Rocha XR TOES ALINE MIN 2 Von 2021 XR TOES ALINE MIN 2 V Normal [facility] HEALTH 01-21-2021 ALLIED HEALTH HNO ID: [id number] Author: RT Parveen(R) Service: ? Author Type: Cat Dog Or Other Pet Groomer Type: Allied Health Filed: 01/20/2021 10:30 PM [...] DATA: Inpatient: see LDA documentation SIGNED BY: Joy Angeles RT(R) January 20, 2021 10:29 PM Normal [facility] Basic Metabolic Panlon 01-21 Anion gap [Moles/Vol] 7 mmol/L Low 9-18 [facility] Calcium [Mass/Vol] 8.8 mg/dL Normal 8.5-10.2 [facility] Chloride [Moles/Vol] 99 mmol/L Normal 97-105 [facility] CO2 [Moles/Vol] 25 mmol/L Normal 22-30 [facility] Creatinine [Mass/Vol] 1.51 mg/dL High 0.58-0.96 [facility] eGFR- Amer. 42 Normal Merged With [facility]spital eGFR-All Other Races 35 . Normal [facility] Comment on above: Result Comment: eGFR (Estimated [...] GFR. Glucose [Mass/Vol] 141 mg/dL High 74-99 [facility] Comment on above: Result Comment: The [place] Diabetes Association (ADA) provides guidance for cutoff [...] Standards of Medical Care in Diabetes 2016, [place] [employer]. Diabetes Care. 2016.39(Suppl 1). Potassium [Moles/Vol] 4.7 mmol/L Normal 3.7-5.1 [facility] Sodium [Moles/Vol] 131 mmol/L Low 136-144 [facility] Urea nitrogen [Mass/Vol] 42 mg/dL High 7-21 [facility] CBCon 01-21-2021 Absolute nRBC <0.01 [facility] <0.01 [facility] width (RBC) [Ratio] 13.1 % Normal 11.5-15.0 [facility] Hematocrit (Bld) [Volume fraction] 30.0 % Low 36.0-46.0 [facility] Hemoglobin (Bld) [Mass/Vol] 9.5 g/dL Low 11.5-15.5 [facility] MCH 24.4 pG Low 26.0-34.0 [facility] MCHC (RBC) [Mass/Vol] 31.7 g/dL Normal 30.5-36.0 [facility] MCV (RBC) [Entitic vol] 77.1 fL Low 80.0-100.0 [facility] Platelet mean volume (Bld) [Entitic vol] 11.1 fL Normal 9.0-12.7 [facility] Platelets (Bld) [#/Vol] 358 10*3/uL Normal 150-400 [facility] RBC (Bld) [#/Vol] 3.89 10*6/uL Low 3.90-5.20 [facility] WBC (Bld) [#/Vol] 9.64 10*3/uL Normal 3.70-11.00 [facility] CNDSon 01-21-2021 [facility] HNO ID: [id number] Author: Inna Hansen DO Service: Hospital Medicine [...] Team: Attending Provider: Inna Hansen DO Physician Crm Business Analyst: Garrett Simon PA-C Consulting: Taurus Ballard MD [...] PCP: referred to a new PCP in [place]. Future Appointments Date Time Provider Department Center 01/29/2021 11:40 AM Taurus Ballard MD [facility] The patient's risk for 30-day readmission is determined using the following contributing factors: Pt variables contributing to increased readmission risk: 42 Most Recent (more content not included)... Normal [facility] MRI KIDNEY WO/W IVCONon 06-0 MRI KIDNEY WO/W IVCON * * *Final Report* * * DATE OF EXAM: Jan 20 2021 10:35PM [facility] 0721 - MRI KIDNEY WO/W IVCON / PROCEDURE REASON: Renal cyst * * * * Physician Interpretation * * * * EXAMINATION: MRI ABDOMEN WITHOUT AND WITH IV CONTRAST CLINICAL HISTORY: Renal mass characterization. TECHNIQUE: A renal MRI was performed on a MR system utilizing the torso phased-array coil. Pulse sequences included: axial precontrast T1 weighted in- and xqo-fd-exbji, axial and coronal HASTE, axial DWI with [...] be communicated with the ordering provider via [employer] staff message or phone message by Imaging Support Services within 2 business days of report finalization. Algorithms for management of incidental imaging findings can be found on the [facility] Intranet Sharepoint site at: [email or web address] [email or web address] 0Findi [email or web address]/Form s/[email or web address] Automated Access Systems Technician: GUILLE Transcribe Date/Time: Jan 21 2021 8:17A Dictated by : MALLORY AHN MD This examination was interpreted and the report reviewed and electronically signed by: MALLORY AHN MD on Jan 21 2021 8:49AM EST [id number] [id number] Invalid Interpretation Code [facility] Basic Metabolic Panlon 01-20 Anion gap [Moles/Vol] 11 mmol/L Normal 9-18 [facility] Calcium [Mass/Vol] 8.7 mg/dL Normal 8.5-10.2 [facility] Chloride [Moles/Vol] 97 mmol/L Normal 97-105 [facility] CO2 [Moles/Vol] 24 mmol/L Normal 22-30 [facility] Creatinine [Mass/Vol] 1.46 mg/dL High 0.58-0.96 [facility] eGFR- Amer. 44 Normal Merged [facility]spital eGFR-All Other Races 36 . Normal [facility] Comment on above: Result Comment: eGFR (Estimated [...] GFR. Glucose [Mass/Vol] 149 mg/dL High 74-99 [facility] Comment on above: Result Comment: The [place] Diabetes Association (ADA) provides guidance for cutoff [...] Standards of Medical Care in Diabetes 2016, [place] Diabetes Association. Diabetes Care. 2016.39(Suppl 1). Potassium [Moles/Vol] 3.9 mmol/L Normal 3.7-5.1 [facility] Sodium [Moles/Vol] 132 mmol/L Low 136-144 [facility]ital Urea nitrogen [Mass/Vol] 53 mg/dL High 7-21 [facility] CBCon 01-20-2021 Absolute nRBC <0.01 Normal <0.01 [facility] Erythrocyte distribution width (RBC) [Ratio] 12.8 % Normal 11.5-15.0 [facility] Hematocrit (Bld) [Volume fraction] 27.7 % Low 36.0-46.0 [facility] Hemoglobin (Bld) [Mass/Vol] 8.9 g/dL Low 11.5-15.5 [facility] MCH 24.5 pG Low 26.0-34.0 [facility] MCHC (RBC) [Mass/Vol] 32.1 g/dL Normal 30.5-36.0 [facility] MCV (RBC) [Entitic vol] 76.3 fL Low 80.0-100.0 [facility] Platelet mean volume (Bld) [Entitic vol] 11.1 fL Normal 9.0-12.7 [facility] Platelets (Bld) [#/Vol] 321 10*3/uL Normal 150-400 [facility] RBC (Bld) [#/Vol] 3.63 10*6/uL Low 3.90-5.20 [facility] WBC (Bld) [#/Vol] 11.05 10*3/uL High 3.70-11.00 [facility] CONSULT PROGon 01-20-2021 CONSULT PROG HNO ID: [id number] Author: Rajendra Cruz MD Service: Nephrology Author Type: Physician Type: Consult Progress Note Filed: 01/20/2021 1:44 PM Note Text: [facility] NEPHROLOGY CONSULT PROGRESS NOTE SERVICE DATE: January [...] DATE: January 20, 2021 1:43 PM PHONE: [phone] FOR AFTER HOUR CONCERNS BETWEEN 7PM - 7AM CONTACT ON-CALL NEPHROLOGY STAFF Normal [facility] THERAPY NTon 01-20-2021 THERAPY NT HNO ID: [id number] Author: Afia Radford, PT Service: Physical Therapy Author Type: Physical Therapist Type: Therapy (PT/OT/Speech/Resp) Filed: 01/20/2021 3:32 PM Note Text: Physical Therapy Treatment SERVICE DATE: 01/20/2021 SERVICE TIME: 1330 to 1353 ROOM: [place] [address] Recommended Discharge Disposition: Home PT Recommended Discharge [...] 0 Tub/Shower Type: tub shower Laundry: basement, kefbtvcv-vv-lzx Equipment Owned: Cane;Standard Walker Prior Functional Level: [...] Diagnosis: Reduced mobility-other Interventions Provided: Gait Training (74433);Therapeutic Exercise (07168) Therapeutic Exercise (66668) Treatment Minutes: 8 Pt performed in supine position: AP, QS, GS x 10 B LE, pt instructed to do every hour while awake on their own. 7 days a week, HS, hip ABD, SAQ, SLR 10-20 reps/ 2-3x/day/ 7 days/week Gait Training (58872) Treatment Minutes: 15 $ Gait Training (10579) Billed Units: 1 unit Training AND education [...] 20, 2021 TIME: (more content not included)... [facility] THERAPY NT HNO ID: [id number] Author: Heidy Wright OT/L Service: Occupational Therapy Author Type: Occupational Therapist Type: Therapy (PT/OT/Speech/Resp) Filed: 01/20/2021 12:15 PM Note Text: Occupational Therapy Treatment SERVICE DATE: 01/20/2021 SERVICE TIME: 1155 to 1205 ROOM: [place] [address] Recommended Discharge Disposition: Home OT Recommended Discharge [...] 0 Tub/Shower Type: tub shower Laundry: basement, [id number]-akc Equipment Owned: Cane;Standard Walker Prior Functional Level: [...] (generalized);General symptoms and signs-other Interventions Provided: Self Nursing Home Management (52010) Self Nursing Home Management (38495) Treatment Minutes: 10 $ Self Nursing Home Management (93235) Billed Units: 1 unit Training AND education provided in: Benefits of in (more content not included)... [facility] THERAPY NT HNO ID: [id number] Author: Heidy Wright, OT/L Service: Occupational Therapy Author Type: Occupational Therapist Type: Therapy (PT/OT/Speech/Resp) Filed: 01/20/2021 8:24 AM Note Text: OCCUPATIONAL THERAPY MISSED VISIT SERVICE DATE: 01/20/2021 SERVICE TIME: 819 to 819 ROOM: [place] [address] Attempted Treatment. Patient not seen due to Declined. Pt states, It's too early when OT attempted to work with her. Will re-attempt as schedule permits. SIGNATURE: Heidy Wright OT/Broderick PATIENT NAME: Aislinn Wheeler DATE: January 20, 2021 TIME: 8:24 AM Normal [facility] Basic Metabolic Panlon 01-19 Anion gap [Moles/Vol] 11 mmol/L Normal 9-18 [facility] Calcium [Mass/Vol] 8.5 mg/dL Normal 8.5-10.2 [facility]ital Chloride [Moles/Vol] 93 mmol/L Low 97-105 [facility] CO2 [Moles/Vol] 24 mmol/L Normal 22-30 [facility] Creatinine [Mass/Vol] 1.92 mg/dL High 0.58-0.96 [facility] eGFR- Amer. 32 Normal Merged [facility] ospital eGFR-All Other Races 26 . Normal [facility] Comment on above: Result Comment: eGFR (Estimated [...] ospital Comment on above: Result Comment: The [place] Diabetes Association (ADA) provides guidance for cutoff [...] Standards of Medical Care in Diabetes 2016, [place] Diabetes Association. Diabetes Care. 2016.39(Suppl 1). Potassium [Moles/Vol] 4.2 mmol/L Normal 3.7-5.1 [facility] Sodium [Moles/Vol] 128 mmol/L Low 136-144 [facility] Urea nitrogen [Mass/Vol] 77 mg/dL High 7-21 [facility] Anion gap [Moles/Vol] 11 mmol/L Normal 9-18 [facility] Calcium [Mass/Vol] 8.3 mg/dL Low 8.5-10.2 [facility] Chloride [Moles/Vol] 88 mmol/L Low 97-105 [facility] CO2 [Moles/Vol] 23 mmol/L Normal 22-30 [facility] Creatinine [Mass/Vol] 1.93 mg/dL High 0.58-0.96 [facility] eGFR- Amer. 32 Normal [facility] eGFR-All Other Races 26 . Normal [facility] Comment on above: Result Comment: eGFR (Estimated [...] ospital Comment on above: Result Comment: The [place] Diabetes Association (ADA) provides guidance for cutoff [...] Standards of Medical Care in Diabetes 2016, [place] Diabetes Association. Diabetes Care. 2016.39(Suppl 1). Potassium [Moles/Vol] 3.8 mmol/L Normal 3.7-5.1 [facility] Sodium [Moles/Vol] 122 mmol/L Low 136-144 [facility] Urea nitrogen [Mass/Vol] 82 mg/dL High 7-21 [facility] CBCon 01-19-2021 Absolute nRBC <0.01 Normal <0.01 [facility] Erythrocyte distribution width (RBC) [Ratio] 12.8 % Normal 11.5-15.0 [facility] Hematocrit (Bld) [Volume fraction] 27.5 % Low 36.0-46.0 [facility] Hemoglobin (Bld) [Mass/Vol] 9.1 g/dL Low 11.5-15.5 [facility] MCH 24.9 pG Low 26.0-34.0 [facility] MCHC (RBC) [Mass/Vol] 33.1 g/dL Normal 30.5-36.0 [facility] MCV (RBC) [Entitic vol] 75.1 fL Low 80.0-100.0 [facility] Platelet mean volume (Bld) [Entitic vol] 11.2 fL Normal 9.0-12.7 [facility] Platelets (Bld) [#/Vol] 297 10*3/uL Normal 150-400 [facility] RBC (Bld) [#/Vol] 3.66 10*6/uL Low 3.90-5.20 [facility] WBC (Bld) [#/Vol] 12.14 10*3/uL High 3.70-11.00 [facility] CONSULT PROGon 01-19-2021 CONSULT PROG HNO ID: [id number] Author: Rajendra Cruz MD Service: Nephrology Author Type: Physician Type: Consult Progress Note Filed: 01/19/2021 2:40 PM Note Text: [facility] NEPHROLOGY CONSULT PROGRESS NOTE SERVICE DATE: January [...] DATE: January 19, 2021 2:27 PM PHONE: [phone] FOR AFTER HOUR CONCERNS BETWEEN 7PM - 7AM CONTACT ON-CALL NEPHROLOGY STAFF [facility] NUTRITIONon 01-19-2021 NUTRITION HNO ID: [id number] Author: Michelle Louis RD Service: Nutrition Therapy [...] history;Intake records;Patient/family self-report;Weight loss;Nausea;Vomiting Estimated kilocalorie needs: 5838-0786 Calorie Calculation Method: 30-35 kcals/kg Estimated protein [...] not interested in diet supplements. Agreeable to [employer] shake no sugar added. Current Intake: 0-25% [...] Type: Initial Assess/15 min 4 units SIGNATURE: Mike Holder RD PATIENT NAME: Aislinn Wheeler DATE: January 19, 2021 TIME: 10:59 AM PAGER: [phone] I have reviewed the nutritional assessment note documented by the software engineer intern and I personally participated in the miller components. I have discussed the case and nutritional management of the patient's care. Michelle Louis MS,RD,LD,[facility] THERAPY NTon 01-19-2021 THERAPY NT HNO ID: [id number] Author: Afia Radford, PT Service: Physical Therapy Author Type: Physical Therapist Type: Therapy (PT/OT/Speech/Resp) Filed: 01/19/2021 2:57 PM Note Text: Physical Therapy Evaluation SERVICE DATE: 01/19/2021 SERVICE TIME: 1307 to 1331 ROOM: [place] [address] Recommended Discharge Disposition: Home PT Anticipated Discharge [...] 0 Tub/Shower Type: tub shower Laundry: basement, [id number]-[id number]-[id number] Equipment Owned: Cane;Standard Walker Prior Functional Level: [...] Diagnosis: Reduced mobility-other Interventions Provided: Evaluation;Therapeutic Exercise (37928);Gait Training (82429) $ Evaluation-Low (33142) Billed Units: 1 unit Therapeutic Exercise (43255) Treatment Minutes: 1 Patient performed in seated position: Marching, AP/HR, hip ABD, LAQ x10 B LE- instructions written on white board for pt to complete on her own. Gait Training (16609) Treatment Minutes: 8 $ Gait Training (87383) Billed Units: 1 unit Training AND education [...] details for this therapy evaluation/treatment. SIGNATURE: Afia Radford PT PATIENT NAME: Aislinn Wheeler DATE: January 19, 2021 TIME: 2:55 PM Additional personnel present during visit: Aleksander Syed, SPT Normal [facility] Basic Metabolic Panlon 01-18 Anion gap [Moles/Vol] 13 mmol/L Normal 9-18 [facility] Calcium [Mass/Vol] 8.8 mg/dL Normal 8.5-10.2 [facility]erged With [facility]ital Chloride [Moles/Vol] 88 mmol/L Low 97-105 [facility] CO2 [Moles/Vol] 22 mmol/L Normal 22-30 [facility] Creatinine [Mass/Vol] 2.21 mg/dL High 0.58-0.96 [facility] eGFR- Amer. 27 Normal Merged With [facility]ital eGFR-All Other Races 23 . Normal [facility] Comment on above: Result Comment: eGFR (Estimated [...] ospital Comment on above: Result Comment: The [place] Diabetes Association (ADA) provides guidance for cutoff [...] Standards of Medical Care in Diabetes 2016, [place] Diabetes Association. Diabetes Care. 2016.39(Suppl 1). Potassium [Moles/Vol] 3.7 mmol/L Normal 3.7-5.1 [facility] Sodium [Moles/Vol] 123 mmol/L Low 136-144 [facility] Urea nitrogen [Mass/Vol] 93 mg/dL High 7-21 [facility] Anion gap [Moles/Vol] 16 mmol/L Normal 9-18 [facility] Calcium [Mass/Vol] 9.0 mg/dL Normal 8.5-10.2 [facility] Chloride [Moles/Vol] 93 mmol/L Low 97-105 [facility] CO2 [Moles/Vol] 21 mmol/L Low 22-30 [facility] Creatinine [Mass/Vol] 2.59 mg/dL High 0.58-0.96 [facility] eGFR- Amer. 23 Normal [facility] eGFR-All Other Races 19 . Normal [facility] Comment on above: Result Comment: eGFR (Estimated [...] GFR. Glucose [Mass/Vol] 130 mg/dL High 74-99 [facility] Comment on above: Result Comment: The [place] Diabetes Association (ADA) provides guidance for cutoff [...] Standards of Medical Care in Diabetes 2016, [place] Diabetes [employer]. Diabetes Care. 2016.39(Suppl 1). Potassium [Moles/Vol] 4.7 mmol/L Normal 3.7-5.1 [facility] Sodium [Moles/Vol] 130 mmol/L Low 136-144 [facility] Urea nitrogen [Mass/Vol] 97 mg/dL High 7-21 [facility] CASE MGT INIT Jay 2020 CASE MGT IN [place] HNO ID: [id number] Author: Nicol Landin RN Service: ? 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 A Patient/Spinner Concrete Pipe Stated Goals: To have reduction in pain;To [...] scheduled Advance Directive: Current Advance Directive: None Studio Manager Attempted to Assist with AD Completion: Yes [...] Has the Patient Been in a Senior Care Facility in the Past 30 days?: No SOCIAL: Living Arrangements: Home Lives With: (ex-, three grandchildren who she has permanent custody ages 15, 14, 10) Financial Resources: Retired Primary Contact: Extended Emergency Contact Information Primary Emergency Contact: LOLA SEARS Mobile Relation: Grandchild Caregiver AssessmentCaregiver is ready, willing and able to meet the patient's needs as recommended by the inter-professional team:: Yes Does the patient have an acute stroke diagnosis, or has the patient had a stroke during this admission?: No Patient's transition needs and plan for meeting these needs: Patient's dqbqbsfv-ao-wzy and son live close by and come over to help often Patient's perception of need for this admission: necessary Medication Adherance I am convinced of the importance of my prescription medication: 0 - Agree Completely I worry that my prescription medication will do more harm than good to me : 0 - Disagree Completely I feel financially burdened by my vos-gz-hnquea expenses for my prescription medication:: 0 - Disagree Completely Risk Score: 0 Patient is categorized as: Low risk < 2 Are you interested in bedside delivery of your medications? Yes Is Patient Psychosocially Complex?: Yes, refer to Social Work ASSESSMENT AND PLAN: Medical Needs: Medical Needs: Two or more chronic diseases Psychosocial Needs: Psychosocial Needs: None FREEDOM OF CHOICE EXPLAINED: [place] of Choice Given: No Reason Not Given: [...] and hospitalized about 1 month ago in [place] but no resolution of her symptoms. She [...] 18, 2021 TIME: 10:51 AM PAGER/CONTACT #: [phone] [facility] 05-31-2021 Absolute nRBC <0.01 Normal <0.01 [facility] Eryth[facility] distribution width (RBC) [Ratio] 13.0 % Normal 11.5-15.0 [facility] Hematocrit (Bld) [Volume fraction] 31.2 % Low 36.0-46.0 [facility] Hemoglobin (Bld) [Mass/Vol] 9.9 g/dL Low 11.5-15.5 [facility] MCH 24.4 pG Low 26.0-34.0 [facility] MCHC (RBC) [Mass/Vol] 31.7 g/dL Normal 30.5-36.0 [facility] MCV (RBC) [Entitic vol] 77.0 fL Low 80.0-100.0 [facility] Platelet mean volume (Bld) [Entitic vol] 10.8 fL Normal 9.0-12.7 [facility] l Platelets (Bld) [#/Vol] 310 10*3/uL Normal 150-400 [facility] RBC (Bld) [#/Vol] 4.05 10*6/uL Normal 3.90-5.20 [facility] WBC (Bld) [#/Vol] 17.03 10*3/uL High 3.70-11.00 [facility] CONSULTon 01-18-2021 CONSULT HNO ID: [id number] Author: Annie Trinidad DO Service: Hypertension AND [...] Noted a no-show appointment to urology at [facility]. She also reports that she has [...] for n (more content not included)... Normal [facility] CONSULT HNO ID: [id number] Author: Taurus Ballard MD Service: Urology Author Type: Physician Type: Consults Filed: 01/18/2021 8:27 AM Note Text: [facility] UROLOGY CONSULT NOTE NAME: Aislinn Wheeler BED: / SERVICE DATE: 01/18/2021 SERVICE TIME: 8:21 AM [...] the pa (more content not included)... Normal [facility] Creatinine,Urine,Ranon 01-18 Creatinine,Urine,Ran 33.5 mg/dL Normal 20-300 [facility] Comment on above: Performed By: #### U FRANK ARGUELLO UCRR ####[facility] [place], [place] [phone] Magnesiumon 01-18-2021 Magnesium [Mass/Vol] 1.9 mg/dL Normal 1.7-2.3 [facility] NURSING PROGon 01-18-2021 NURSING PROG HNO ID: [id number] Author: Barbara Spicer RN Service: ? Author Type: Registered Nurse Type: Nursing Progress Note Filed: 01/18/2021 10:28 AM Note Text: Nursing Progress Note Patient Name: Aislinn Wheeler Patient Location: [facility] Daily Note:pt report given to pete LE. Pt VSS. Pt belongings packed. This note was completed by: Barbara Spicer Normal [facility] Osmolalityon 01-18-2021 Osmolality [Osmolality] 298 mosm/kg Normal 275-300 [facility] Comment on above: Performed By: #### O SM ####[facility] [place], [place] [phone] Osmolality, Urineon 01-19-20 21 Osmolality, Urine 273 mOsm/kg Normal 50-1200 [facility] Comment on above: Performed By: #### U SAUNDRA UBERNADETTE, UCRR ####[facility] [place], [place] [phone] Sepsis Lactateon 01-18-2021 Sepsis Lactate 0.9 mmol/L Normal <2.1 [facility] Sodium,Urine,Randomon 2020 Sodium (U) [Moles/Vol] 32 mmol/L Normal 14-216 [facility] Comment on above: Performed By: #### U SAUNDRA, UOSM, UCRR ####[facility] [address] [place], [place] [phone] THERAPY NTon 01-18-2021 THERAPY NT HNO ID: [id number] Author: Wendy Montes De Oca OT/L Service: Occupational Therapy Author Type: Occupational Therapist Type: Therapy (PT/OT/Speech/Resp) Filed: 01/18/2021 1:10 PM Note Text: Occupational Therapy Evaluation SERVICE DATE: 01/18/2021 SERVICE TIME: 0854 to 0915 ROOM: [place] [address] Recommended Discharge Disposition: Home OT Recommended Discharge [...] Assist at Home for: Transfers;Cleaning;Laun dry;Meals;Safety;Self Care;Shopping;[facility] Recommended Discharge Equipment: Extended tub bench;Wheeled Walker;Commode-Bedside [...] 0 Tub/Shower Type: tub shower Laundry: basement, [id number] Equipment Owned: Cane;Standard Walker CURRENT FUNCTIONAL STATUS: [...] and signs-other Interventions Provided: Evaluation $ Evaluation-Moderate (48643) Billed Units: 1 unit Training and education [...] DATE: January 18, 2021 TIME: 1:06 PM [facility] Urine Cultureon 01-18-2021 Bacteria identified Cx Nom (U) Sp. Request/Comment: - Specimen received in preservative Culture Result - No growth (<1,000 CFU/ml) [facility] Comment on above: Performed By: #### U RCUL ####[address] [phone] Blood Cultureon 01-17-2021 Bacteria identified Cx Nom (Bld) Culture Result - No growth 5 days Normal [facility] Comment on above: Performed By: #### B LCUL ####[address] [phone] C-Reactive Proteinon 021 C-Reactive Protein 32.4 mg/dL High <0.9 [facility] Comment on above: Performed By: #### W SR ####[address] [phone] CBC and Differentialon 01-17 Abs Baso <0.03 Normal <0.11 [facility] Abs Eosin <0.03 Normal <0.46 [facility] Abs [place] 0.73 k/uL Normal <0.87 [facility] Abs Neut 14.70 k/uL High 1.45-7.50 [facility] Absolute nRBC <0.01 Normal <0.01 [facility] Basophils/100 WBC (Bld) 0.1 % Normal [facility] DTYPE Auto Diff Normal [facility] Eosinophils/100 WBC (Bld) 0.0 % Normal [facility] Erythrocyte distribution width (RBC) [Ratio] 13.1 % Normal 11.5-15.0 [facility] Hematocrit (Bld) [Volume fraction] 35.1 % Low 36.0-46.0 [facility] Hemoglobin (Bld) [Mass/Vol] 11.3 g/dL Low 11.5-15.5 [facility] Lymphocytes (Bld) [#/Vol] 1.88 10*3/uL Normal 1.00-4.00 [facility] Lymphocytes/100 WBC (Bld) 10.8 % Normal [facility] MCH 24.2 pG Low 26.0-34.0 [facility] MCHC (RBC) [Mass/Vol] 32.2 g/dL Normal 30.5-36.0 [facility] MCV (RBC) [Entitic vol] 75.2 fL Low 80.0-100.0 [facility] Monocytes/100 WBC (Bld) 4.2 % Normal [facility] Neutrophils/100 WBC (Bld) 84.9 % Normal [facility] NRBCs 0.0 /100 WBC Normal 0 [facility] l Platelet mean volume (Bld) [Entitic vol] 11.4 fL Normal 9.0-12.7 [facility] Platelets (Bld) [#/Vol] 345 10*3/uL Normal 150-400 [facility] RBC (Bld) [#/Vol] 4.67 10*6/uL Normal 3.90-5.20 [facility] WBC (Bld) [#/Vol] 17.33 10*3/uL High 3.70-11.[address] [facility] [address] ABD/PEL WO IVCONon 2020 CT ABD/PEL WO IVCON * * *Final Report* * * DATE OF EXAM: Jan 17 2021 8:05PM [facility] 0531 - CT ABD/PEL WO IVCON / PROCEDURE REASON: Mass or lump, abdomen pelvis * * * * Physician Interpretation * * * * CT OF CHEST, ABDOMEN AND PELVIS WITHOUT CONTRAST CLINICAL HISTORY: Aspiration (accession [id number]), Mass or lump, abdomen pelvis (accession [id number]) Concern for possible source of infection vs [...] report for details. Pelvic bones are intact. Tandem Mill Sticker (topogram) images: Unremarkable. IMPRESSION: Left upper lobe [...] be communicated with the ordering provider via Ret[employer] staff message or phone message by Imaging Support Services within 2 business days of report finalization. ACTIONABLE RESULT: FOLLOW-UP Acuity: Actionable Findings: Kidneys/Ureters/Bladder /Adrenal Routing Code: GU_1 Recommendation: MRI KIDNEY WO/W IVCON Time Frame: non-urgent, but prompt follow-up. COMMUNICATION: Results will be communicated with the ordering provider via Retargetly staff message or phone message by Imaging Support Services within 2 business days of report finalization. Algorithms for management of incidental imaging findings can be found on the [facility] Intranet Sharepoint site at: [email or web address] Managing%20Incidental%2 0Findi ngs%20at%20Imaging/Form s/AllItems.aspx Automated Access Systems Technician: GUILLE Transcribe Date/Time: Jan 17 2021 8:20P Dictated by : PADILLA JIM MD This examination was interpreted and the report reviewed and electronically signed by: PADILLA JIM MD on Jan 17 2021 8:43PM EST [id number] ACTIONABLE Invalid Interpretation Code [facility] CT BRAIN WO IVCONon 01-18-20 CT BRAIN WO IVCON * * *Final Report* * * DATE OF EXAM: Jan 17 2021 4:26PM [facility] 0504 - CT BRAIN WO IVCON [...] base and imaged soft tissues are unremarkable. Tandem Mill Sticker (topogram) images: No additional findings. IMPRESSION: No acute intracranial hemorrhage or mass effect is seen Automated Access Systems Technician: GUILLE Transcribe Date/Time: Jan 17 2021 4:47P Dictated by : JOHN THAKKAR MD This examination was interpreted and the report reviewed and electronically signed by: JOHN THAKKAR MD on Jan 17 2021 4:48PM EST [id number] [facility] CT CERVICAL SPINE WO IVCONon 01-17-2021 CT CERVICAL SPINE WO IVCON * * *Final Report* * * DATE OF EXAM: Jan 17 2021 4:26PM [facility] 0505 - CT CERVICAL SPINE WO [...] Counting reference: Craniocervical junction. Anatomic Variants: None. Tandem Mill Sticker (topogram) images: No additional findings. Alignment: Straightening [...] vertebrae with counting from the craniocervical junction. Automated Access Systems Technician: GUILLE Transcribe Date/Time: Jan 17 2021 4:49P Dictated by : JOHN THAKKAR MD This examination was interpreted and the report reviewed and electronically signed by: JOHN THAKKAR MD on Jan 17 2021 4:53PM EST [id number] Normal [facility] CT CHEST WO IVCONon 01-18-[address] CHEST WO IVCON * * *Final Report* * * DATE OF EXAM: Jan 17 2021 8:05PM [facility] 0541 - CT CHEST WO IVCON / PROCEDURE REASON: Aspiration * * * * Physician Interpretation * * * * CT OF CHEST, ABDOMEN AND PELVIS WITHOUT CONTRAST CLINICAL HISTORY: Aspiration (accession [id number]), Mass or lump, abdomen pelvis (accession [id number]) Concern for possible source of infection vs [...] report for details. Pelvic bones are intact. Tandem Mill Sticker (topogram) images: Unremarkable. IMPRESSION: Left upper lobe [...] be communicated with the ordering provider via Retargetly staff message or phone message by Imaging Support Services within 2 business days of report finalization. ACTIONABLE RESULT: FOLLOW-UP Acuity: Actionable Findings: Kidneys/Ureters/Bladder /Adrenal Routing Code: GU_1 Recommendation: MRI KIDNEY WO/W IVCON Time Frame: non-urgent, but prompt follow-up. COMMUNICATION: Results will be communicated with the ordering provider via Retargetly staff message or phone message by Imaging Support Services within 2 business days of report finalization. Algorithms for management of incidental imaging findings can be found on the [facility] Intranet Sharepoint site at: [email or web address] Managing%20Incidental%2 0Findi ngs%20at%20Imaging/Form s/AllItems.aspx Automated Access Systems Technician: GUILLE Transcribe Date/Time: Jan 17 2021 8:20P Dictated by : PADILLA JIM MD This examination was interpreted and the report reviewed and electronically signed by: PADILLA JIM MD on Jan 17 2021 8:43PM EST [id number] ACTIONABLE Invalid Interpretation Code [facility] CT LUMBAR SPINE WO IVCONon 0 01-17-2021 CT LUMBAR SPINE WO IVCON * * *Final Report* * * * * * SEE BOTTOM OF REPORT FOR ADDENDED TEXT * * * DATE OF EXAM: Jan 17 2021 5:34PM [facility] 0508 - CT LUMBAR SPINE WO [...] are 5 lumbar-type vertebrae. Anatomic variant: None. Tandem Mill Sticker (topogram) images: No additional findings. Alignment: Alignment [...] on 01/17/2021 6:08 PM via verbal communication. Automated Access Systems Technician: GUILLE Transcribe Date/Time: Jan 17 2021 6:05P Dictated by : JOHN THAKKAR MD This examination was interpreted and the report reviewed and electronically signed by: JOHN THAKKAR MD on Jan 17 2021 6:01PM EST This document has been addended by: JOHN THAKKAR MD on Jan 17 2021 6:08PM EST [id number] [facility] CT THORACIC SPINE WO IVCONon 01-17-2021 CT THORACIC SPINE WO IVCON * * *Final Report* * * DATE OF EXAM: Jan 17 2021 5:34PM [facility] 0514 - CT THORACIC SPINE WO [...] the purposes of this report, anatomic variants: Tandem Mill Sticker (topogram) images: No additional findings. Alignment: Alignment [...] and assume there are 5 lumbar-type vertebrae. Automated Access Systems Technician: PSCB Transcribe Date/Time: Jan 17 2021 6:03P Dictated by : JOHN THAKKAR MD This examination was interpreted and the report reviewed and electronically signed by: JOHN THAKKAR MD on Jan 17 2021 6:13PM EST [id number] Normal [facility] Comp Metabolic Panelon 01-17 Albumin [Mass/Vol] 3.0 g/dL Low 3.9-4.9 [facility] ALP [Catalytic activity/Vol] 162 U/L High 34-123 [facility] ALT [Catalytic activity/Vol] 7 U/L Normal 7-38 [facility] Anion gap [Moles/Vol] 17 mmol/L Normal 9-18 [facility] AST [Catalytic activity/Vol] 15 U/L Normal 13-35 [facility] Bilirubin [Mass/Vol] 0.4 mg/dL Normal 0.2-1.3 [facility] Calcium [Mass/Vol] 9.6 mg/dL Normal 8.5-10.2 [facility] Chloride [Moles/Vol] 83 mmol/L Low 97-105 [facility] CO2 [Moles/Vol] 20 mmol/L Low 22-30 [facility] Creatinine [Mass/Vol] 2.93 mg/dL High 0.58-0.96 [facility] eGFR- Amer. 20 Normal [facility] eGFR-All Other Races 16 . Normal [facility] Comment on above: Result Comment: eGFR (Estimated [...] ospital Comment on above: Result Comment: The [place] Diabetes Association (ADA) provides guidance for cutoff [...] Standards of Medical Care in Diabetes 2016, [place] [employer] Association. Diabetes Care. 2016.39(Suppl 1). Potassium [Moles/Vol] 5.5 mmol/L High 3.7-5.1 [facility] Protein [Mass/Vol] 9.5 g/dL High 6.3-8.0 [facility] Sodium [Moles/Vol] 120 mmol/L Low 136-144 [facility] Comment on above: Result Comment: Resu lt checked and verified Urea nitrogen [Mass/Vol] 104 mg/dL High 7-21 [facility] ED NOTEon 01-17-2021 ED NOTE HNO ID: [id number] Author: Prerna Luke RN Service: ? Author Type: Registered Nurse Type: ED Notes Filed: 01/17/2021 9:32 PM Note Text: Report called to 4E RN. Patient stable for transport at this time. [facility] ED NOTE HNO ID: [id number] Author: Prerna Luke RN Service: ? Author Type: Registered Nurse Type: ED Notes Filed: 01/17/2021 9:20 PM Note Text: 16Fr chaves inserted with 500 cc urine immediately drained. Patient tolerated well. [facility] ED NOTE HNO ID: [id number] Author: Prerna Luke RN Service: ? Author Type: Registered Nurse Type: ED Notes Filed: 01/17/2021 7:22 PM Note Text: BC obtained by lab. ABX infusing at this time. [facility] ED NOTE HNO ID: [id number] Author: Prerna Luke RN Service: ? Author Type: Registered Nurse Type: ED Notes Filed: 01/17/2021 7:06 PM Note Text: This RN and 2 medics unable to straight stick patient for blood or draw from existing IVs. Lab will draw one set of BC; GIANNI Tucker notified that only one set will be obtained. [facility] ED NOTE HNO ID: [id number] Author: Prerna Luke RN Service: ? Author Type: Registered Nurse Type: ED Notes Filed: 01/17/2021 4:25 PM Note Text: XR at bedside [facility] ED NOTE HNO ID: [id number] Author: Prerna Luke RN Service: ? Author Type: Registered Nurse Type: ED Notes Filed: 01/17/2021 4:03 PM Note Text: covid swab obtained and walked to lab. [facility] ED NOTE HNO ID: [id number] Author: Bharat Patterson RN Service: ? Author [...] time Reports oral intake has been poor [facility] ED PROV NOTEon 01-17-2021 ED PROV NOTE HNO ID: [id number] Author: aGrrett Simon PA-C Service: Emergency Medicine Author Type: Physician Crm Business Analyst Type: ED Provider Notes Filed: 01/17/2021 9:27 PM Note Text: Attestation signed by Cory Crawley III, MD at 01/18/2021 12:06 PM Attending Note I have personally performed a face to face assessment of the patient and have reviewed the PA/ACCOUNTS PAYABLE SPECIALIST note. My miller findings include: This is [...] significant midlin (more content not included)... Normal [facility] HISTORY PHYSICALon HISTORY PHYSICAL HNO ID: [id number] Author: Trevor Porras MD Service: Hospital Medicine Author Type: Physician Type: HANDP Filed: 01/17/2021 10:12 PM Note Text: DEPARTMENT OF HOSPITAL MEDICINE HISTORY AND PHYSICAL EXAM SERVICE DATE: 01/17/2021 Code Status: Not on file SERVICE TIME: 10:00 PM Primary Care Physician: Claudia Pcp NIGHT AND WEEKEND COVERAGE: [place] COVERAGE: Days: [phone], please contact via Retarget[employer]ills[employer] Nights: [phone], please page [facility] Hospitalist Night coverage pager [phone] Subjective CHIEF COMPLAINT: Generalized weakness, falls HPI: [...] Most recen (more content not included)... Normal [facility] Intermed Rapid COVIDon 01-17 SARS-CoV-2 (COVID-19) RNA ADRIEL+probe Ql (Unsp spec) UPPER RESPIRATORY TRACT SWAB Normal [facility] Comment on above: Performed By: #### I TCOVD ####[facility] [address] [place], [place] [phone] SARS-CoV-2 (COVID-19) RNA ADRIEL+probe Ql (Unsp spec) Negative for COVID19 (SARS CoV2) by RT-PCR or equivalent method. Normal Negative for COVID19 (SARS CoV2) by RT-PCR or equivalent method. [facility] Comment on above: Result Comment: This test was developed and its performance characteristics determined by [facility]'s [facility] [place]. This test has been authorized by FDA under an Emergency Use Authorization (EUA). This test has been validated in accordance with the FDA's Guidance Document Policy for Diagnostics Testing in Laboratories Certified to Perform High Complexity Testing under CLIA prior to Emergency use Authorization for Coronavirus Disease 2019 during the Public Health Emergency issued on October 19, 2019. Test performed by [facility], [facility] [place], [address] [place], [place] [address]. Performed By: #### I TCOVD ####[facility] [place], [place] [phone] Magnesiumon 01-17-2021 Magnesium [Mass/Vol] 2.0 mg/dL Normal 1.7-2.3 [facility] NT Pro BNPon 01-17-2021 PRO B Natr Peptide 394 pg/mL High <125 [facility] Sed Rate Westergrenon 2020 Sed Rate Westergren 124 mm/hr High 0-20 [facility] Comment on above: Performed By: #### W SR ####[facility] [place], [place] [phone] TSHon 01-17-2021 TSH Qn 0.615 m[IU]/L Normal 0.270-4.200 [facility] Troponin Ton 01-17-2021 Troponin T.cardiac [Mass/Vol] 0.023 ug/L Normal 0.000-0.029 [facility] Urinalysis with Microscopico n 01-17-2021 Bacteria Present Critically abnormal 0 [facility] Bilirubin, Urine Negative Normal Negative [facility] pital Cast SEE COMMENT Normal 0 [facility] Comment on above: Result Comment: 0 Clarity (U) Turbid Critically abnormal Clear [facility] Color (U) Yellow Normal Yellow [facility] Glucose Ql (U) Negative Normal Negative [facility] Hemoglobin/Blood,Ur 2+ Critically abnormal Negative [facility] Ketones Ql (U) Negative Normal Negative [facility] Leukest 3+ Critically abnormal Negative [facility] Nitrite Ql (U) Positive Critically abnormal Negative [facility] pH (U) 8.5 [pH] High 5.0-8.0 [facility] Protein, Urine 2+ Critically abnormal Negative [facility] RBC 3-5 Critically abnormal 0-3 [facility] Specific [place], Ur 1.013 Normal 1.005-1.030 [facility] Urobilinogen Qn (U) 0.2 {Madeleine'U}/dL Normal 0.2-1.0 [facility] WBC (U) [#/Vol] /uL Critically abnormal 0-5 [facility] Urine Cultureon 01-17-2021 Bacteria identified Cx Nom [...] F Ertapenem SUSCEPTIBLE <=0.5 F Critically abnormal [facility] Comment on above: Performed By: #### U RCUL ####[facility] [address] [place], [place] [phone] XR CHEST 1V FRONTAL PORTon 0 01-17-2021 [...] exam with no evidence of acute disease. Automated Access Systems Technician: PSCB Transcribe Date/Time: Jan 17 2021 4:40P Dictated by : FLASH WOODS MD This examination was interpreted and the report reviewed and electronically signed by: FLASH WOODS MD on Jan 17 2021 4:41PM EST [id number] Normal [facility] Vital Signs Date Time Vital Sign Value Performing Clinician Facility 03-26-2024 10:48-0400 Body mass index (BMI) [Ratio] 24.41 kg/m2 Carmenza Nolen MD Work Phone: [facility] 03-26-2024 10:48-0400 Body weight 56.7 kg Carmenza Nolen MD Work Phone: [facility] Comment on above: VERBAL 01-12-2024 13:50-0400 Diastolic blood pressure 69 mm[Hg] Taurus Ballard MD Work Phone: [facility] 01-12-2024 13:50-0400 Heart rate 75 /min Taurus Ballard MD Work Phone: [facility] 01-12-2024 13:50-0400 Systolic blood pressure 142 mm[Hg] Taurus Ballard MD Work Phone: [facility] 10-25-2023 15:12-0500 Blood Pressure Location [facility] 10-25-2023 15:12-0500 Body temperature 96.8 [degF] [facility] 10-25-2023 15:12-0500 Diastolic blood pressure 78 mm[Hg] [facility] [facility] 10-25-2023 15:12-0500 Heart rate 86 /min HEIDY ARNOLD [facility] 10-25-2023 15:12-0500 Systolic blood pressure 122 mm[Hg] HEIDY ARNOLD [facility] 08-01-2023 15:00-0500 Body height 154.94 cm [facility] 06-08-2023 13:00-0400 Body height 154.94 cm Tondra Mapus Other [employer] Other 06-08-2023 13:00-0400 Body mass index (BMI) [Ratio] 25.37 kg/m2 Tondra Mapus Other [employer] Other 06-08-2023 13:00-0400 Body weight 60.92 kg Tondra Mapus Other [employer] Other 06-08-2023 13:00-0400 Diastolic blood pressure 66 mm[Hg] Tondra Mapus Other [employer] Other 06-08-2023 13:00-0400 Respiratory rate 18 /min Tondra Mapus Other [employer] Other 06-08-2023 13:00-0400 SaO2% (BldA) [Mass fraction] 100 % Tondra Mapus Other [employer] Other 06-08-2023 13:00-0400 Systolic blood pressure 107 mm[Hg] Tondra Mapus Other [employer] Other 05-18-2023 11:00-0400 Body height 154.94 cm Tondra Mapus Other [employer] Other 05-18-2023 11:00-0400 Body mass index (BMI) [Ratio] 24.69 kg/m2 Tondra Mapus Other [employer] Other 05-18-2023 11:00-0400 Body weight 59.29 kg Tondra Mapus Other [employer] Other 05-18-2023 11:00-0400 Diastolic blood pressure 96 mm[Hg] Tondra Mapus Other [employer] Other 05-18-2023 11:00-0400 Respiratory rate 18 /min Tondra Mapus Other [employer] Other 05-18-2023 11:00-0400 SaO2% (BldA) [Mass fraction] 97 % Tondra Mapus Other [employer] Other 05-18-2023 11:00-0400 Systolic blood pressure 161 mm[Hg] Tondra Mapus Other [employer] Other 02-22-2023 08:34-0400 Blood Pressure Location Lisa Lue [facility] 02-22-2023 08:34-0400 Diastolic blood pressure 66 mm[Hg] Lisa Lue [facility] 02-22-2023 08:34-0400 Heart rate 76 /min Lisa Lue [facility] 02-22-2023 08:34-0400 Systolic blood pressure 106 mm[Hg] Lisa Lue [facility] 12-27-2022 16:00-0400 Body height 154.94 cm Eli Sprague Other [employer] Other 12-27-2022 16:00-0400 Body mass index (BMI) [Ratio] 26.11 kg/m2 Eli Mendenhalls Other [employer] Other 12-27-2022 16:00-0400 Body temperature 96.5 [degF] Eli Sprague Other [employer] Other 12-27-2022 16:00-0400 Body weight 62.69 kg Eli Mendenhalls Other [employer] Other 12-27-2022 16:00-0400 Diastolic blood pressure 98 mm[Hg] Eli Mendenhalls Other [employer] Other 12-27-2022 16:00-0400 Respiratory rate 18 /min Eli Mendenhalls Other [employer] Other 12-27-2022 16:00-0400 SaO2% (BldA) [Mass fraction] 98 % Eli Mendenhalls Other [employer] Other 12-27-2022 16:00-0400 Systolic blood pressure 151 mm[Hg] Eli Mendenhalls Other [employer] Other 09-21-2022 08:42-0500 Blood Pressure Location Lisa Lue [facility] 09-21-2022 08:42-0500 Diastolic blood pressure 67 mm[Hg] Lisa Lue [facility] 09-21-2022 08:42-0500 Heart rate 74 /min Lisa Porras [facility] 09-21-2022 08:42-0500 Systolic blood pressure 103 mm[Hg] Lisa Porras [facility] Encounters Encounter Date Encounter Type Care Provider Facility Start: 04-15-2024 End: 04-15-2024 ambulatory Chioma Durán [facility] Start: 04-09-2024 End: 04-09-2024 ambulatory CARMENZA NOLEN Facility:[facility] Start: 04-09-2024 End: 04-09-2024 Patient encounter procedure Carmenza Nolen MD Work Phone: Urology Comment on above: Neurogenic bladder ( Primary Dx); BURKE (stress urinary incontinence, female) Start: 04-09-2024 End: 04-09-2024 Telemedicine consultation with patient Carmenza Nolen MD Work Phone: Urology Start: 04-08-2024 End: 04-08-2024 ambulatory Chioma Durán [facility] Start: 03-29-2024 End: 03-29-2024 Nursing evaluation of patient and report [facility] Comment on above: Stress incontinence (Primary Dx); Dysfunctional voiding of urine Start: 03-29-2024 End: 03-29-2024 ambulatory TAURUS BALLARD Facility:[facility] Start: 03-27-2024 ambulatory Nuria garrett APRN.CNP Work Phone: Pulmonary Medicine Start: 03-26-2024 End: 03-26-2024 ambulatory CARMENZA NOLEN Facility:[facility] Start: 03-26-2024 End: 03-26-2024 Patient encounter procedure Carmenza Nolen MD Work Phone: Urology Comment on above: Retention of urine ( Primary Dx); Screening for genitourinary condition; Type 2 diabetes mellitus with hyperglycemia, with long-term current use of insulin (HCC); BURKE (stress urinary incontinence, female) Start: 03-16-2024 End: 03-16-2024 ambulatory JYOTHI SHELTON [facility] Start: 03-15-2024 End: 03-15-2024 ambulatory ZACKERY PEDRO [facility] Start: 02-26-2024 Telephone encounter Flavio Coon RN Ur ology Start: 02-12-2024 Telephone encounter Vonnie Wilder RN Ur ology Comment on above: Results - Ct Start: 02-01-2024 End: 02-01-2024 ambulatory [facility] Facility:[facility] Start: 01-24-2024 End: 01-24-2024 ambulatory [facility] Start: 01-17-2024 End: 01-17-2024 ambulatory AGUSTO AICHHOLZ Not Available Start: 01-12-2024 End: 01-12-2024 Patient encounter procedure Taurus Ballard MD Work Phone: Urology Comment on above: Other hydronephrosis (Primary Dx); Screening for genitourinary condition Start: 01-12-2024 End: 01-12-2024 ambulatory [facility] Facility:[facility] Start: 12-21-2023 End: 12-21-2023 ambulatory AGUSTO AICHHOLZ Not Available Start: 12-13-2023 End: 12-13-2023 ambulatory [facility] Start: 11-16-2023 End: 11-16-2023 ambulatory AGUSTO AICHHOLZ Not Available Start: 11-06-2023 Sotero Barreto RN [facility] Comment on above: 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; Complex regional pain syndrome type 1 of right upper extremity Start: 11-02-2023 ambulatory PA-C HEIDY ARNOLD F acility:[facility] Start: 10-25-2023 End: 10-26-2023 ambulatory PA-C HEIDY ARNOLD Facility:[facility] [place] Start: 10-25-2023 End: 10-25-2023 Patient encounter procedure HEIDY ARNOLD [facility] Start: 10-14-2023 End: 10-14-2023 ambulatory KATEY DIAMOND [facility] Start: 10-13-2023 End: 10-13-2023 ambulatory [facility] Start: 10-11-2023 End: 10-11-2023 ambulatory AGUSTO OLMSTEAD Not Available Start: 10-10-2023 Refill Agusto Gray CLAM TREADER [employer] [facility] Comment on above: 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; Complex regional pain syndrome type 1 of right upper extremity Start: 09-29-2023 End: 09-29-2023 ambulatory [facility] Start: 09-29-2023 End: 09-29-2023 ambulatory Drew Esqueda Research Coordinator [facility] Provider Adult Comment on above: [facility] IRB# [phone] Start: 09-28-2023 E-mail encounter fro m caregiver Drew Esqueda Research Coordinator [facility] Start: 09-27-2023 Telephone encounter Drew bourne Research Coordinator [facility] Provider Adult Comment on above: Research F/U Start: 09-26-2023 Telephone encounter Drew bourne Research Coordinator [facility] Provider Adult Comment on above: Research F/U Start: 09-12-2023 End: 09-13-2023 ambulatory PA-C HEIDY ARNOLD Facility:[facility] Start: 09-12-2023 End: 09-12-2023 Patient encounter procedure HEIDY ARNOLD [facility] Start: 09-07-2023 Refill Yesenia Burnett RN [facility] Comment on above: 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 Start: 09-05-2023 End: 09-05-2023 ambulatory Sara Augustine Other [employer] Other Start: 09-05-2023 Telephone encounter Sara Augustine [facility] Start: 08-09-2023 End: 08-09-2023 ambulatory [facility] Start: 08-09-2023 End: 08-09-2023 ambulatory [facility] Start: 08-01-2023 End: 08-01-2023 Patient encounter procedure [facility] Michael Work Phone: Start: 07-18-2023 End: 07-19-2023 ambulatory PROMISE ARNOLD Facility:[facility] Start: 07-05-2023 End: 07-05-2023 Orders Only Taurus Ballard MD Work Phone: Urology Comment on above: Kidney cyst, acquire d (Primary Dx) Start: 07-05-2023 Telephone encounter Eli PAYNE [facility] Start: 06-28-2023 End: 06-29-2023 ambulatory Lisa Porras Facility:[facility] Start: 06-28-2023 End: 06-28-2023 Patient encounter procedure Lisa PulidoIrina Sharifjennifer [facility] Start: 06-26-2023 End: 06-26-2023 ambulatory Tondra Mapus Other [employer] Other Start: 06-26-2023 Telephone encounter Tondra Mapus [facility] Start: 06-23-2023 Telephone encounter Heidy harris RN Urology Comment on above: Surgical Followup Start: 06-22-2023 End: 06-23-2023 ambulatory TAURUS BALLARD Facility:[facility] Start: 06-19-2023 ambulatory Taurus newton MD Work Phone: Urology Comment on above: Aislinn Wheeler upcomin g procedure Start: 06-15-2023 Telephone encounter Vonnie Wilder RN Ur ology Comment on above: Pre-Op Teaching Start: 06-12-2023 End: 06-12-2023 ambulatory Tondra Mapus Other [employer] Other Start: 06-12-2023 Telephone encounter Tondra Davide Ortiz [facility] Start: 06-08-2023 End: 06-08-2023 Lab Drop off HEIDY ARNOLD [facility] Start: 06-08-2023 End: 06-08-2023 Patient encounter procedure AGUSTO Watson AYSHA [facility] Start: 06-08-2023 (PUMP/CGM) Pump / Sensor Sara Augustine [facility] Start: 06-08-2023 End: 06-09-2023 ambulatory [facility] [employer] [facility] [email or web address] Other Start: 06-06-2023 Encounter for other preprocedural examination TAURUS BALLARD [facility] Start: 06-06-2023 End: 06-06-2023 ambulatory TAURUS BALLARD Facility:[facility] Start: 05-22-2023 End: 05-23-2023 ambulatory Lisa Porras Facility[facility] Start: 05-22-2023 End: 05-22-2023 Patient encounter procedure Lisa Porras [facility] Start: 05-18-2023 End: 05-18-2023 ambulatory Tondra Juliaus Other [employer] Other Start: 05-18-2023 [facility] visit new patient Sara Augustine [facility] Start: 05-18-2023 Telephone encounter Taurus rees MD Work Phone: Urology Comment on above: Follow Up Start: 05-17-2023 End: 05-17-2023 ambulatory TAURUS BALLARD Facility:[facility] Start: 05-11-2023 End: 2023 ambulatory PA-C HEIDY Jennifer CATALINA Facility:[facility] Start: 05-11-2023 End: 05-11-2023 Lab Drop off HEIDY DOMINGORY [facility] Start: 05-03-2023 End: 05-04-2023 ambulatory Lisa Sharifjennifer Facility:[facility] Start: 04-18-2023 End: 04-19-2023 ambulatory PA-C HEIDY Jennifer CATALINA Facility:[facility] Start: 04-18-2023 End: 04-19-2023 ambulatory Lisa AshokIrina Sharife Facility:[facility] Start: 04-18-2023 End: 04-18-2023 Lab Drop off HEIDY Jennifer DOMINGORY [facility] Start: 04-18-2023 End: 04-18-2023 Patient encounter procedure Lisa Sharifjennifer [facility] Start: 04-04-2023 End: 04-04-2023 ambulatory Brigette Wesley Other [employer] Other Start: 04-04-2023 Telephone encounter Brigette Wesley [facility] Start: 02-22-2023 End: 02-23-2023 ambulatory Lisa Sharifjennifer Facility:[facility] Start: 02-22-2023 End: 02-22-2023 Patient encounter procedure Lisa AshokIrina Sharifjennifer [facility] Start: 01-09-2023 End: 01-09-2023 ambulatory Eli Sprague Other [employer] Other Start: 01-09-2023 Telephone encounter Eli Sprague [facility] Start: 01-03-2023 End: 01-04-2023 ambulatory COLLECTION CARD CLERK AGUSTO AICHHOLZ Facility:[facility] Start: 12-28-2022 End: 12-29-2022 ambulatory COLLECTION CARD CLERK AGUSTO AICHHOLZ Facility:[facility] Start: 12-27-2022 End: 12-27-2022 ambulatory Eli Sprague Other [employer] Other Start: 12-27-2022 Office outpatient ne w 30 minutes Eli Sprague [facility] Start: 12-15-2022 End: 12-16-2022 ambulatory COLLECTION CARD CLERK AGUSTO AICHHOLZ Facility:[facility] Start: 12-14-2022 End: 12-15-2022 ambulatory PETER D WILLYANDER Facility:[facility] Start: 10-27-2022 End: 10-28-2022 ambulatory COLLECTION CARD CLERK AGUSTO AICHHOLZ Facility:[facility] Start: 10-24-2022 End: 10-25-2022 ambulatory COLLECTION CARD CLERK AGUSTO AICHHOLZ Facility:[facility] Start: 10-12-2022 End: 10-13-2022 ambulatory COLLECTION CARD CLERK AGUSTO AICHHOLZ Facility:[facility] Start: 10-05-2022 End: 10-06-2022 ambulatory COLLECTION CARD CLERK AGUSOT AICHHOLZ Facility:[facility] Start: 09-29-2022 End: 09-30-2022 ambulatory COLLECTION CARD CLERK AGUSTO AICHHOLZ Facility:[facility] Start: 09-21-2022 End: 09-22-2022 ambulatory PETER D WILLYANDER Facility:[facility] Start: 09-21-2022 End: 09-21-2022 Patient encounter procedure Lisa Porras [facility] Start: 09-15-2022 End: 09-16-2022 ambulatory COLLECTION CARD CLERK AGUSTO AICHHOLZ Facility:[facility] Start: 09-13-2022 End: 09-13-2022 Patient encounter procedure HEIDY ARNOLD [facility] Start: 09-08-2022 End: 09-09-2022 ambulatory COLLECTION CARD CLERK AGUSTO AICHHOLZ Facility:[facility] Start: 09-02-2022 End: 09-03-2022 ambulatory RAMON HUNTLEY Facility:[facility] Start: 08-26-2022 End: 08-27-2022 ambulatory RAMON Tillman [facility] Facility:[facility] Start: 08-09-2022 End: 08-10-2022 ambulatory RAMON Tillman [facility] Facility:[facility] Start: 08-05-2022 End: 08-06-2022 ambulatory RAMON Tillman [facility] Facility:[facility] Start: 08-04-2022 End: 08-05-2022 ambulatory RAMON HUNTLEY Facility:[facility] Start: 08-03-2022 End: 08-04-2022 ambulatory COLLECTION CARD CLERK AGUSTO AICHHOLZ Facility:[facility] Start: 08-02-2022 End: 08-03-2022 ambulatory COLLECTION CARD CLERK AGUSTO AICHHOLZ Facility:[facility] Start: 08-01-2022 End: 08-02-2022 ambulatory COLLECTION CARD CLERK AGUSTO AICHHOLZ Facility:[facility] Start: 07-19-2022 End: 07-20-2022 ambulatory COLLECTION CARD CLERK AGUSTO AICHHOLZ Facility:[facility] Start: 07-08-2022 End: 07-09-2022 ambulatory COLLECTION CARD CLERK AGUSTO AICHHOLZ Facility:[facility] Start: 07-06-2022 End: 07-07-2022 ambulatory COLLECTION CARD CLERK AGUSTO AICHHOLZ Facility:[facility] Start: 07-05-2022 End: 07-06-2022 ambulatory RAMON HUNTLEY Facility:[facility] Start: 06-28-2022 End: 06-29-2022 ambulatory [facility] Start: 06-24-2022 End: 06-25-2022 ambulatory RAMON Tillman [facility] Facility:[facility] Start: 06-11-2022 End: 06-16-2022 Evaluation and management of inpatient DR NENO VIEIRA . Facility:[facility] Start: 06-02-2022 End: 06-02-[address] NELL PALMA Facility:[facility] Start: 06-02-2022 End: 06-03-2022 ambulatory RAMON Primo [facility] Facility:[facility] Start: 2022 End: 2022 ambulatory RAQUEL SABA . Facility:[facility] Start: 01-27-2021 End: 01-27-2021 Telephone encounter Barb Silva MD Work Phone: Nephrology Comment on above: Appointment Procedures Date Procedure Procedure Detail Performing Clinician Start: 03-26-2024 Urnls dip stick/tabl et rgnt auto w/o microscopy Carmenza Nolen MD Work Phone: Start: 01-12-2024 Urnls dip stick/tabl et rgnt auto w/o microscopy Taurus Ballard MD Work Phone: Start: 06-22-2023 Laparoscopic partial nephrectomy of left kidney HEIDY ARNOLD Start: 06-06-2023 Antibody screen TAURUS BALLARD Comment on above: Order Comment: Speci men Type: BLOOD SPECIMENOrdering Facility: [facility] Address: [address] [place] [address] Performed By: #### T [id number] ####[facility] [id number] [address] [place] Start: 05-22-2023 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 Ricardo Rocha Start: 06-13-2022 Detachment at Left F oot, Partial 1st Ray, Open Approach KIARA OLMSTEAD Start: 06-13-2022 Microscopic examinat ion of blood, culture KIARA OLMSTEAD Comment on above: Performed By: #### B [id number] ####[facility] [address] [place], [place] [id number]. Ricardo Rocha Start: 06-11-2022 Detachment at Left 1 st Toe, Complete, Open Approach KIARA OLMSTEAD Ankle region structu re (body structure) HEIDY ARNOLD Arthroscopy of knee HEIDY DOMINGORY Cataract (disorder) HEIDY ARNOLD Gallbladder structur e (body structure) HEIDY ARNOLD Hysterectomy HEIDY ARNOLD Neck structure (body structure) HEIDY ARNOLD Shoulder region stru cture (body structure) HEIDY ARNOLD Traumatic partial am putation of left foot HEIDY ARNOLD Upper limb structure (body structure) HEIDY ARNOLD Plan of Treatment Date Care Activity Detail Author Start: 04-28-2026 Screening for malignant neoplasm of colon [facility] Start: 01-31-2025 Creatinine measurement Serum Creatinine [facility] Start: 10-13-2024 Tobacco Screening Tobacco Screening [facility] Start: 09-29-2024 Tobacco Screening Tobacco Screening [facility] Start: 09-03-2024 Complete blood count Hemoglobin/Hematocrit [facility] Start: 09-03-2024 Creatinine measurement Serum Creatinine [facility] Start: 08-09-2024 Adult BMI Screening Adult BMI Screening [facility] Start: 08-09-2024 Tobacco Screening Tobacco Screening [facility] Start: 06-23-2024 Hemoglobin/Hematocrit Hemoglobin/Hematocrit [facility] Start: 06-23-2024 Serum Creatinine Serum Creatinine [facility] Start: 06-06-2024 Hemoglobin/Hematocrit Hemoglobin/Hematocrit [facility] Start: 06-06-2024 Serum Creatinine Serum Creatinine [facility] Start: 05-01-2024 End: 05-01-2024 Patient encounter procedure 05/01/2024 10:00 AM EDT Office Visit Urology [address] [address] Mirna Sunshine MD [address] [place] [address] discuss bladder augment per Dr. Nolen Urology Comment on above: discuss bladder augment per Dr. Nolen Start: 04-21-2024 Influenza vaccination [facility] Start: 04-09-2024 End: 04-09-2024 Follow-up encounter 04/09/2024 9:30 AM EDT [facility] [address] [place] [address] Carmenza Nolen MD [address] [place] [address] 1 week follow up per dr. nolen Urology Comment on above: 1 week follow up per dr. nolen Start: 04-04-2024 Hepatitis B screening Urine Albumin:Creatinine Ratio [facility] Start: 03-29-2024 End: 03-29-2024 Nursing evaluation of patient and report 03/29/2024 3:00 PM EDT Nurse Visit Urology [address] [address] [facility] [address] [place] [address] [R33.9] Retention of urine Urology Comment on above: [R33.9] Retention of urine Start: 03-26-2024 End: 03-26-2024 Patient encounter procedure 03/26/2024 11:00 AM EDT Office Visit Urology [address] [place] [address] Carmenza Nolen MD [address] [place] [address] Ballard Urology Comment on above: Follow up per Dr. 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 encounter procedure SAMPLE COORDINATOR UROL RAMAN MOB Comment on above: Continuous leakage of Urine Start: 01-22-2024 DIABETES SCREEN DIABETES SCREEN [facility] Start: 01-19-2024 End: 04-19-2024 CREATININE BLD CREATININE BLD Lab Routine Other hydronephrosis Expected: 01/19/2024 (Approximate), Expires: 04/19/2024 [facility] Comment on above: Expected: 01/19/2024 (Approximate), Expi res: 04/19/2024 Start: 01-19-2024 End: 02-10-2025 CT Kidney WO and W contrast IV CT UROGRAM WO/W IVCON Radiology Routine Other hydronephrosis Expected: 01/19/2024 (Approximate), Expires: 02/10/2025 [facility] Work Phone: Comment on above: Expected: 01/19/2024 (Approximate), Expi res: 02/10/2025 Start: 11-22-2023 End: 11-22-2023 Patient encounter procedure 11/22/2023 11:15 AM EDT Office Visit [facility] [address] [place] [phone] Sweta Li PA-C [address] [place], [place] [phone] [facility] Start: 10-25-2023 End: 10-25-2023 Patient encounter procedure 10/25/2023 12:45 PM EST Office Visit [facility] [address] [place] [phone] Sweta Li PA-C [address], [address] [place] [phone] [facility] Start: 10-13-2023 End: 10-13-2023 Njx anes stellate ganglion crv sympathetic INJECTION BLOCK NERVE STELLATE GANGLION NECK Complex regional pain syndrome type 1 of right upper extremity 10/13/2023 12:44 PM EST [facility] Start: 10-13-2023 End: 10-13-2023 Patient encounter procedure 10/13/2023 9:55 AM EST Appointment [facility] [address] [place] [address] Zackery Pedro MD [address] [place], [place] [phone] [facility] Start: 10-05-2023 End: 01-04-2024 Basic metabolic 2000 panel - Serum or Plasma BASIC METABOLIC PNL Lab Routine Kidney cyst, acquired Expected: 10/05/2023 (Approximate), Expires: 01/04/2024 [facility] Work Phone: Comment on above: Expected: 10/05/2023 (Approximate), Expi res: 01/04/2024 Start: 10-05-2023 End: 08-03-2024 US KIDNEY/BLADDER US KIDNEY/BLADDER Radiology Routine Kidney cyst, acquired Expected: 10/05/2023 (Approximate), Expires: 08/03/2024 [facility] Work Phone: Comment on above: Expected: 10/05/2023 (Approximate), Expi res: 08/03/2024 Start: 09-06-2023 Hemoglobin A1c measurement HbA1C [facility] Start: 09-06-2023 Hemoglobin A1c/Hemoglobin.total in Blood HbA1C [facility] Start: 08-21-2023 Advance Directive Discussion Advance Directive Discussion [facility] Start: 08-21-2023 Behavioral Health Screening Behavioral Health Screening [facility] Start: 08-21-2023 Depression Assessment Depression Assessment [facility] Start: 2023 Advance Directive Discussion Advance Directive Discussion [facility] Start: 2023 Bone Density Screening Bone Density Screening [facility] Start: 2023 Fall Risk Screening Fall Risk Screening [facility] Start: 2023 Screening for osteoporosis Bone Density Screening [facility] Start: 04-21-2023 Covid-19 Vaccine ( season) Covid-19 Vaccine ( season) [facility] Start: 04-21-2023 Covid-19 Vaccine ( season) Covid-19 Vaccine ( season) [facility] Start: 04-21-2023 Influenza vaccination [facility] Start: 08-21-2022 Depression Assessment Depression Assessment [facility] Start: 04-21-2021 Influenza vaccination INFLUENZA (Season Ended) [facility] Start: 2018 Hepatitis B Vaccine (1 of 3 - Risk 3-dose series) Hepatitis B Vaccine (1 of 3 - Risk 3-dose series) [facility] Start: 2018 RSV Vaccine (1 - 1-dose 60+ series) RSV Vaccine (1 - 1-dose 60+ series) [facility] Start: 2008 Administration of varicella zoster vaccine Zoster (Shingles) Vaccine (1 of 2) [facility] Start: 2008 Screening for malignant neoplasm of colon [facility] Start: 2008 SHINGRIX VACCINE (1 of 2) SHINGRIX VACCINE (1 of 2) [facility] Start: 2003 Cologuard (FIT-DNA) Cologuard (FIT-DNA) [facility] Start: 2003 Colonoscopy Colonoscopy [facility] Start: 2003 Colorectal Cancer Screening Colorectal Cancer Screening [facility] Start: [address] Colonography [facility] Start: 2003 Fecal Occult Blood Fecal Occult Blood [facility] Start: 2003 LIPID SCREEN LIPID SCREEN [facility] Start: 2003 Screening for malignant neoplasm of colon [facility] Start: 2003 Sigmoidoscopy Sigmoidoscopy [facility] Start: 1998 Mammography [facility] Start: 1998 Screening for malignant neoplasm of breast Mammogram Screening [facility] Start: 1988 HPV TESTING HPV TESTING [facility] Start: 1979 PAP TESTING PAP TESTING [facility] Start: 1977 DTaP,Tdap and Td Vaccines (1 - Tdap) DTaP,Tdap and Td Vaccines (1 - Tdap) [facility] Start: 1977 Urine microalbumin profile [facility] Start: 1976 Annual PCP Team Chronic Disease Visit Annual PCP Team Chronic Disease Visit [facility] Start: 1976 Anxiety Screening Anxiety Screening [facility] Start: 1976 BP Controlled (<130/80) BP Controlled (<130/80) [facility] Start: 1976 Depression Screening Depression Screening [facility] Start: 1976 Diabetic foot examination Diabetic Foot Exam [facility] Start: 1976 Hepatitis B surface antibody level LDL Cholesterol [facility] Start: 1976 HEPATITIS C SCREENING HEPATITIS C SCREENING [facility] Start: 1976 Hepatitis C screening Hepatitis C Screening [facility] Start: 1976 HIV SCREENING HIV SCREENING [facility] Start: 1976 HIV screening HIV Screening [facility] Start: 1976 Spirometry Spirometry [facility] Start: 1970 Adult depression screening assessment DEPRESSION SCREENING [facility] Start: 1970 COVID-19 VACCINE (1) COVID-19 VACCINE (1) [facility] Start: 1968 3 comp foot exam completed Diabetic Foot Exam [facility] Start: 1968 Diabetic foot examination Diabetic Foot Exam [facility] Start: 1968 Glaucoma screening Dilated Retinal Exam [facility] Start: 1968 Hepatitis B screening Urine Albumin:Creatinine Ratio [facility] Start: 1968 Hepatitis C antibody, confirmatory test Dilated Retinal Exam [facility] Start: 1964 Pneumococcal Vaccine: 65+ (1 - PCV) Pneumococcal Vaccine: 65+ (1 - PCV) [facility] Start: 1964 Pneumococcal Vaccine: 65+ (1 of 2 - PCV) Pneumococcal Vaccine: 65+ (1 of 2 - PCV) [facility] Start: 1958 Glaucoma screening Diabetic Ophthalmology Exam [facility] Start: 1958 Urine screening for protein Urine Microalbumin [facility] FLUROURODYNAMICS WITH EMG FLUROU RODYNAMICS WITH EMG Procedures Routine Retention of urine BURKE (stress urinary incontinence, female) Ordered: 03/26/2024 [facility] Work Phone: Comment on above: Ordered: 03/26/2024 Njx anes stellate ganglion crv sympathetic INJECTION BLOCK NERVE STELLATE GANGLION NECK Complex regional pain syndrome type 1 of right upper extremity [facility] Njx anes stellate ganglion crv sympathetic INJECTION BLOCK NERVE STELLATE GANGLION NECK Complex regional pain syndrome type 1 of right upper extremity [facility] Immunizations Immunization Date Immunization Notes Care Provider Lukas pacheco 04-02-2021 SARS-CoV-2 (COVID-19 ) mRNA-1273 vaccine HEIDY ARNOLD [facility] 12-07-2020 SARS-CoV-2 (COVID-19 ) mRNA-1273 vaccine HEIDY ARNOLD [facility] 06-03-2016 influenza virus vaccine, unspecified formulation HEIDY ARNOLD [facility] 06-03-2016 influenza, seasonal, injectable, preservative free Drew Esqueda Research Coordinator [facility] Payers Date Payer Category Payer Medicare [id number] 2023 Self-pay 2022 Medicare [id number] 2022 Medicare [id number] [id number] [id number] 2006 Medicare MEDICARE MEDICAR E A [id number] 2006-Present [place] Medicare [id number] .[id number] 2003 Unknown [id number] 1959 Medicare [id number] 2.16.840.1.082458.19 1959 Unknown [id number] 1959 Unknown [id number] 1958 Unknown [id number] 2.16.840.1.239111.3.579.2.593 1958 Unknown [id number] 2.16.840.1.870590.3.579.2.593 1958 Unknown [id number] 2.16.840.1.779490.3.579.2.593 1958 Unknown [id number] 2.16.840.1.897818.3.579.2.593 1958 Unknown [id number] 2.16.840.1.642473.3.579.2.593 1958 Unknown [id number] 2.16.840.1.176580.3.579.2.593 1958 Unknown [id number] 2.16.840.1.345760.3.579.2.593 1958 Unknown [id number] 2.16.840.1.381735.3.579.2.593 1958 Unknown [id number] 2.16.840.1.842051.3.579.2.593 1958 Unknown [id number] 2.16.840.1.466222.3.579.2.593 1958 Unknown [id number] 2.16.840.1.550954.3.579.2.593 1958 Unknown [id number] 2.16.840.1.337966.3.579.2.593 1958 Unknown [id number] 2.16.840.1.057622.3.579.2.593 1958 Unknown [id number] 2.16.840.1.460161.3.579.2.593 1958 Unknown [id number] 2.16.840.1.584474.3.579.2.593 1958 Unknown [id number] 2.16.840.1.419753.3.579.2.593 1958 Unknown [id number] 2.16.840.1.469676.3.579.2.593 1958 Unknown [id number] 2.16.840.1.846579.3.579.2.593 1958 Unknown [id number] 2.16.840.1.348106.3.579.2.593 1958 Unknown [id number] 2.16.840.1.847379.3.579.2.593 1958 Unknown [id number] 2.16.840.1.317014.3.579.2.593 1958 Unknown [id number] 2.16.840.1.533427.3.579.2.593 1958 Unknown [id number] 2.16.840.1.003236.3.579.2.593 1958 Unknown [id number] 2.16.840.1.679575.3.579.2.593 1958 Unknown [id number] 2.16.840.1.503691.3.579.2.593 1958 Unknown [id number] 2.16.840.1.219557.3.579.2.593 1958 Unknown [id number] 2.16.840.1.304101.3.579.2.593 1958 Unknown [id number] 2.16.840.1.304686.3.579.2.593 1958 Unknown [id number] 2.16.840.1.015561.3.579.2.593 1958 Unknown [id number] 2.16.840.1.126945.3.579.2.593 1958 Unknown [id number] 2.16.840.1.606222.3.579.2.593 1958 Unknown [id number] 2.16.840.1.254040.3.579.2.727 1958 Unknown [id number] 2.16.840.1.171786.3.579.2.727 1958 Unknown [id number] 2.16.840.1.043133.3.579.2.727 1958 Unknown [id number] 2.16.840.1.091957.3.579.2.727 1958 Unknown [id number] 2.16.840.1.868334.3.579.2.727 1958 Unknown [id number] 2.16.840.1.663835.3.579.2.727 1958 Unknown [id number] 2.16.840.1.447992.3.579.2.727 1958 Unknown [id number] 2.16.840.1.885927.3.579.2.727 1958 Unknown [id number] 2.16.840.1.919351.3.579.2.727 1958 Unknown [id number] 2.16.840.1.467242.3.579.2.72 1958 Unknown [id number] 2.16.840.1.908966.3.579.2.72 1958 Unknown [id number] 2.16.840.1.584624.3.579.2.727 1958 Unknown [id number] 2.16.840.1.717948.3.579.2.72 1958 Unknown [id number] 2.16.840.1.681948.3.579.2.727 1958 Unknown [id number] 2.16.840.1.101109.3.579.2.727 1958 Unknown [id number] 2.16.840.1.107853.3.579.2.125 9 1958 Unknown [id number] 2.16.840.1.739308.3.579.2.125 9 1958 Unknown [id number] 2.16.840.1.856697.3.579.2.125 9 1958 Unknown [id number] 2.16.840.1.316234.3.579.2.125 9 1958 Unknown [id number] 2.16.840.1.906971.3.579.2.128 6 1958 Unknown [id number] 2.16.840.1.143926.3.579.2.128 6 1958 Unknown [id number] 2.16.840.1.821198.3.579.2.128 6 1958 Unknown [id number] 2.16.840.1.405717.3.579.2.128 6 1958 Unknown [id number] 2.16.840.1.950688.3.579.2.128 6 1958 Unknown [id number] 2.16.840.1.546642.3.579.2.128 6 1958 Unknown [id number] 2.16.840.1.343042.3.579.2.128 6 1958 Unknown [id number] 2.16.840.1.170670.3.579.2.128 6 1958 Unknown [id number] 2.16.840.1.588674.3.579.2.128 6 1958 Unknown [id number] 2.16.840.1.328447.3.579.2.128 6 1958 Unknown [id number] 2.16.840.1.210457.3.579.2.128 6 1958 Unknown [id number] 2.16.840.1.274927.3.579.2.128 6 1958 Unknown [id number] 2.16.840.1.280946.3.579.2.128 1958 Unknown [id number] 2.16.840.1.754384.3.579.2.128 6 Medicare [id number] Unknown [facility] [id number] 2.16.840.1.914420.3.579.2.531 Social History Date Type Detail Facility Start: 01-17-2021 End: 05-17-2023 Tobacco smoking status NHIS Never smoker [facility] Start: 01-17-2021 End: 05-17-2023 Tobacco use and exposure Never used [facility] Start: 01-17-2021 End: 04-09-2024 Alcohol intake Current drinker of alcohol (finding) [facility] Start: 01-17-2021 History SDOH Alcohol Frequency 1 [facility] Start: 01-17-2021 Alcohol Comment socially [facility] Start: 1960 Sex Assigned At Not on file [facility] Exposure to SARS-CoV -2 (event) Not sure [facility] Tobacco smoking status Never [facility] Start: 05-17-2023 End: 06-06-2023 Sex Assigned At Female [facility] Start: 05-17-2023 End: 06-06-2023 History of Social function [facility] Start: 06-06-2023 Alcohol Comment rarely--holida y or special occ [facility] Start: 08-09-2023 End: 10-13-2023 Alcohol intake Current non-drinker of alcohol (finding) [facility] Are you now , , , , never or living with a partner? [facility] How hard is it for y ou to pay for the very basics like food, housing, medical care, and heating Not very hard [facility] (I/We) worried wheth er (my/our) food would run out before (I/we) got money to buy more. DK or Refused [facility] Start: 1960 Sex Assigned At Female [facility] Functional Status Date Assessment Result Facility 10-25-2023 Functional Status N/A [facility] 05-22-2023 Functional Status N/A [facility] 05-11-2023 Functional Status [facility] 02-22-2023 Functional Status N/A [facility] 09-21-2022 Functional Status N/A [facility] 09-13-2022 Functional Status N/A [facility] Clinical Notes 01-17-2021 to 04-15-2024 Chioma Durán - 04/15/2024 7:28 AM Carmenza Maradiaga MD - 04/09/2024 9:33 AM Chioma Clements - 04/08/2024 9:38 AM Lorie Blanchard RN - 03/29/2024 1:21 PM EDTPatient Instructions Note Date & Type Note Facility 04-15-2024 Note HNO ID: [id number] Author: ?, ?, ? Service: ? Author Type: ? Type: Progress Notes Filed: 04/15/2024 07:29 Note Text: Incidental Lung Nodule Enrollment Outreach attempt: 3rd Attempt Outreach status: Complete Enrolled in Lung Nodule program: No Declined reason: Other Lung Nodule Program Location: [place] Two letter attempts, no response. Discharge letter sent. [facility] 04-15-2024 History of Presen t illness Narrative Incidental Lung Nodule Enrollment Outreach attempt: 3rd Attempt Outreach status: Complete Enrolled in Lung Nodule program: No Declined reason: Other Lung Nodule Program Location: [place] Two letter attempts, no response. Discharge letter sent. documented in this encounter [facility] 04-15-2024 Note Patient Outreach (PU LMMN) AISLINN WHEELER ([id number]) 1960 F Date Time Provider Department 04/15/24 CHIOMA DURÁN During your visit today, we recorded the following information about you: Chioma Durán 04/15/2024 7:29 AM Signed Incidental Lung Nodule Enrollment Outreach attempt: 3rd Attempt Outreach status: Complete Enrolled in Lung Nodule program: No Declined reason: Other Lung Nodule Program Location: [place] Two letter attempts, no response. Discharge letter sent. Allergies As of Date: 04/15/2024 Noted Allergy Reaction LATEX 02/05/2020 2 - Rash Comments: Added based on information entered during case entry, please review and add reactions, type, and severity as needed Date Reviewed: 04/09/2024 Reviewed by: Carmenza Nolen MD - Fully Assessed Prescriptions as of 04/15/2024 - metoprolol succinate ER (TOPROL XL) 50 mg 24 hr tablet Take 50 mg by mouth once daily. - insulin lispro (HUMALOG KWIKPEN) 100 unit/mL INJECT 4-6-8 UNITS SUBCUTANEOUSLY THREE TIMES DAILY plus sliding scale coverage 2 (TWO) (max DAILY dose OF 30 UNITS) - HYDROcodone-Acetaminophen (NORCO) 7.5-325 mg per tablet Take 1 tablet by mouth. - denosumab (PROLIA) 60 mg/mL Inject 60 mg subcutaneously once every 6 months. - amLODIPine (NORVASC) 5 mg tablet Take 5 mg by mouth once daily. - pregabalin (LYRICA) 150 mg capsule Take [...] of breath. Problem List As Of Date 04/15/2024 Noted Resolved Ureterolithiasis [N20.1] 01/17/2021 Acute bilateral [...] Urinary tract infection without hematuria [N39.*08/31/2023 09/04/2023 Letter Text Encounter Status:Closed by CHIOMA DURÁN on 04/15/24 [facility] 04-09-2024 Note HNO ID: [id number] Author: CARMENZA NOLEN MD Service: ? Author Type: Physician Type: Progress Notes Filed: 04/09/2024 09:53 Note Text: VIRTUAL VISIT PROGRESS NOTE This is a virtual visit. It required patient-provider interaction for the medical decision making as documented below. Aislinn Wheeler is a 63 year old female seen for UDS follow up. CMG: The FS 103 ml and FD 132 ml: normal range Bladder compliance: abnormal - consistent rise in pDet until leak at ~100ml Detrusor overactivity: No Stress incontinence: Yes, 150 cm of H20 at 100 ml Total tolerated volume was 100ml Impression: Small capacity bladder with poor compliance and BURKE at LONG TERM of 100ml. Bladder remodeling without VUR. Valsalva voiding with atonic detrusor. She reports she had bladder botox in the past - severe pain. No improvement. Pt unsure if she was able to get all the injections. HISTORY REVIEWED (electronic chart updated): PAST MEDICAL HISTORY No date: Anemia No date: Asthma No date: CKD (chronic kidney disease) No date: Diabetes (HCC) PAST SURGICAL HISTORY No date: ANKLE SURGERY HX; Left No date: HYSTERECTOMY HX No date: NECK SURGERY HX Comment: x2-- cervical disc No date: PAST SURGICAL HISTORY OF Comment: left large toe amputation No date: PAST SURGICAL HISTORY OF; Right Comment: right arm surgery No date: REMOVAL GALLBLADDER No date: SHOULDER SURGERY HX; Left FAMILY HISTORY Problem Relation Age of Onset Difficulty with anesthesia No Family History Social History Tobacco Use Smoking status: Never Smokeless tobacco: Never Vaping Use Vaping status: Never Used Substance Use Topics Alcohol use: Yes Comment: rarely--holiday or special occ Drug use: Never Current Outpatient Medications Medication Sig metoprolol succinate ER (TOPROL XL) 50 mg 24 hr tablet Take 50 mg by mouth once daily. insulin lispro (HUMALOG KWIKPEN) 100 unit/mL INJECT 4-6-8 UNITS SUBCUTANEOUSLY THREE TIMES DAILY plus sliding scale coverage 2 (TWO) (max DAILY dose OF 30 UNITS) HYDROcodone-Acetaminophen (NORCO) 7.5-325 mg per tablet Take 1 tablet by mouth. denosumab (PROLIA) 60 mg/mL Inject 60 mg subcutaneously once every 6 months. amLODIPine (NORVASC) 5 mg tablet Take 5 mg by mouth once daily. pregabalin (LYRICA) 150 mg capsule Take 1 capsule by mouth two times a day for 30 days. FEROSUL 325 mg (65 mg iron) tablet Take 1 tablet by mouth three times daily with meals. VITAMIN B-12 1,000 mcg tab Take 1,000 mcg by mouth once daily. insulin aspart (NOVOLOG FLEXPEN U-100 INSULIN SUBCUTANEOUS) Inject subcutaneously. Sliding scale insulin glargine (LANTUS) 100 unit/mL injection Inject 25 Units subcutaneously daily at bedtime. albuterol HFA (PROVENTIL HFA, VENTOLIN HFA) 90 mcg/actuation inhaler Inhale 2 Puffs as instructed every 6 hours as needed for wheezing/shortness of breath. No current facility-administered medications for this visit. ALLERGIES Allergen Reactions Latex Rash Added based on information entered during case entry, please review and add reactions, type, and severity as needed PHYSICAL EXAMINATION: VIDEO EXAM: (if completed, performed via video enabled technology) Pt unable to connect with video ASSESSMENT: 63 yo F with CKD and diabetic cystopathy with impaired capacity and compliance, BURKE at capacity of 100ml, history of retention with bilateral hydronephrosis PLAN: Discussed possible options: Bladder botox to improve capacity and compliance with anticipated retention requiring ISC - pt not interested Referral for bladder augmentation with fascial sling Would not proceed with isolated sling due to impaired capacity and compliance. All questions and concerns were addressed. Carmenza Nolen MD I spent a total of 17 minutes on the date of the service which included preparing to see the patient, completing clinical documentation, counseling and educating the patient/family/caregiver, and communicating with other HCPs (not separately reported). I have communicated my name and active licensure. The patient's identity and physical location were verified at the time of this visit. Either the patient or their legal players club representative has been informed of the risks and benefits of -- and alternatives to -- treatment through a remote evaluation and consents to proceed with the evaluation remotely. [facility] 04-09-2024 History of Presen t illness Narrative VIRTUAL VISIT PROGRESS NOTE This is a virtual visit. It required patient-provider interaction for the medical decision making as documented below. Aislinn Wheeler is a 63 year old female seen for UDS follow up. CMG: The FS 103 ml and FD 132 ml: normal range Bladder compliance: abnormal - consistent rise in pDet until leak at ~100ml Detrusor overactivity: No Stress incontinence: Yes, 150 cm of H20 at 100 ml Total tolerated volume was 100ml Impression: Small capacity bladder with poor compliance and BURKE at LONG TERM of 100ml. Bladder remodeling without VUR. Valsalva voiding with atonic detrusor. She reports she had bladder botox in the past - severe pain. No improvement. Pt unsure if she was able to get all the injections. HISTORY REVIEWED (electronic chart updated): PAST MEDICAL HISTORY No date: Anemia No date: Asthma No date: CKD (chronic kidney disease) No date: Diabetes (HCC) PAST SURGICAL HISTORY No date: ANKLE SURGERY HX; Left No date: HYSTERECTOMY HX No date: NECK SURGERY HX Comment: x2-- cervical disc No date: PAST SURGICAL HISTORY OF Comment: left large toe amputation No date: PAST SURGICAL HISTORY OF; Right Comment: right arm surgery No date: REMOVAL GALLBLADDER No date: SHOULDER SURGERY HX; Left FAMILY HISTORY Problem Relation Age of Onset Difficulty with anesthesia No Family History Social History Tobacco Use Smoking status: Never Smokeless tobacco: Never Vaping Use Vaping status: Never Used Substance Use Topics Alcohol use: Yes Comment: rarely--holiday or special occ Drug use: Never Current Outpatient Medications Medication Sig metoprolol succinate ER (TOPROL XL) 50 mg 24 hr tablet Take 50 mg by mouth once daily. insulin lispro (HUMALOG KWIKPEN) 100 unit/mL INJECT 4-6-8 UNITS SUBCUTANEOUSLY THREE TIMES DAILY plus sliding scale coverage 2 (TWO) (max DAILY dose OF 30 UNITS) HYDROcodone-Acetaminophen (NORCO) 7.5-325 mg per tablet Take 1 tablet by mouth. denosumab (PROLIA) 60 mg/mL Inject 60 mg subcutaneously once every 6 months. amLODIPine (NORVASC) 5 mg tablet Take 5 mg by mouth once daily. pregabalin (LYRICA) 150 mg capsule Take 1 capsule by mouth two times a day for 30 days. FEROSUL 325 mg (65 mg iron) tablet Take 1 tablet by mouth three times daily with meals. VITAMIN B-12 1,000 mcg tab Take 1,000 mcg by mouth once daily. insulin aspart (NOVOLOG FLEXPEN U-100 INSULIN SUBCUTANEOUS) Inject subcutaneously. Sliding scale insulin glargine (LANTUS) 100 unit/mL injection Inject 25 Units subcutaneously daily at bedtime. albuterol HFA (PROVENTIL HFA, VENTOLIN HFA) 90 mcg/actuation inhaler Inhale 2 Puffs as instructed every 6 hours as needed for wheezing/shortness of breath. No current facility-administered medications for this visit. ALLERGIES Allergen Reactions Latex Rash Added based on information entered during case entry, please review and add reactions, type, and severity as needed PHYSICAL EXAMINATION: VIDEO EXAM: (if completed, performed via video enabled technology) Pt unable to connect with video ASSESSMENT: 63 yo F with CKD and diabetic cystopathy with impaired capacity and compliance, BURKE at capacity of 100ml, history of retention with bilateral hydronephrosis PLAN: Discussed possible options: Bladder botox to improve capacity and compliance with anticipated retention requiring ISC - pt not interested Referral for bladder augmentation with fascial sling Would not proceed with isolated sling due to impaired capacity and compliance. All questions and concerns were addressed. Carmenza Nolen MD I spent a total of 17 minutes on the date of the service which included preparing to see the patient, completing clinical documentation, counseling and educating the patient/family/caregiver, and communicating with other HCPs (not separately reported). I have communicated my name and active licensure. The patient's identity and physical location were verified at the time of this visit. Either the patient or their legal players club representative has been informed of the risks and benefits of -- and alternatives to -- treatment through a remote evaluation and consents to proceed with the evaluation remotely. documented in this encounter [facility] 04-08-2024 Note HNO ID: [id number] Author: ?, ?, ? Service: ? Author Type: ? Type: Progress Notes Filed: 04/08/2024 09:39 Note Text: Incidental Lung Nodule Enrollment Outreach attempt: 2nd Attempt Outreach status: Complete Enrolled in Lung Nodule program: Referred Lung Nodule outreach: Needs outreach Lung Nodule Program Location: [place] Two letter attempts [facility] 04-08-2024 History of Presen t illness Narrative Incidental Lung Nodule Enrollment Outreach attempt: 2nd Attempt Outreach status: Complete Enrolled in Lung Nodule program: Referred Lung Nodule outreach: Needs outreach Lung Nodule Program Location: [place] Two letter attempts documented in this encounter [facility] 04-08-2024 Note Patient Outreach ([facility] LMMN) LIAMBARBARAAISLINN M ([id number]) 1960 F Date Time Provider Department 04/08/24 CHIOMA DURÁN During your visit today, we recorded the following information about you: DuránChioma 04/08/2024 9:39 AM Signed Incidental Lung Nodule Enrollment Outreach attempt: 2nd Attempt Outreach status: Complete Enrolled in Lung Nodule program: Referred Lung Nodule outreach: Needs outreach Lung Nodule Program Location: [place] Two letter attempts Allergies As of Date: 04/08/2024 Noted Allergy Reaction LATEX 02/05/2020 2 - Rash Comments: Added based on information entered during case entry, please review and add reactions, type, and severity as needed Date Reviewed: 03/29/2024 Reviewed by: Lorie Burrows RN - Fully Assessed Prescriptions as of 04/08/2024 - metoprolol succinate ER (TOPROL XL) 50 mg 24 hr tablet Take 50 mg by mouth once daily. - insulin lispro (HUMALOG KWIKPEN) 100 unit/mL INJECT 4-6-8 UNITS SUBCUTANEOUSLY THREE TIMES DAILY plus sliding scale coverage 2 (TWO) (max DAILY dose OF 30 UNITS) - HYDROcodone-Acetaminophen (NORCO) 7.5-325 mg per tablet Take 1 tablet by mouth. - denosumab (PROLIA) 60 mg/mL Inject 60 mg subcutaneously once every 6 months. - amLODIPine (NORVASC) 5 mg tablet Take 5 mg by mouth once daily. - pregabalin (LYRICA) 150 mg capsule Take [...] of breath. Problem List As Of Date 04/08/2024 Noted Resolved Ureterolithiasis [N20.1] 01/17/2021 Acute bilateral [...] Urinary tract infection without hematuria [N39.*08/31/2023 09/04/2023 Letter Text Letter Text Encounter Status:Closed by CHIOMA DURÁN on 04/08/24 [facility] 04-02-2024 Note HNO ID: [id number] Author: CARMENZA NOLEN MD Service: ? Author Type: Physician Type: Progress Notes Filed: 04/02/2024 11:52 Note Text: [facility] FEMALE PELVIC MEDICINE AND RECONSTRUCTIVE SURGERY PHYSICIAN INTERPRETATION: Urodynamics Interpretation: A 7 Fr catheter was placed in a sterile fashion and a separate rectal catheter was placed for intra-abdominal pressure measurements. The study was then run to yield results as follows: Uroflow: Voided volume 16 cml with Continuous pattern PVR: High 200 ml. CMG: The FS 103 ml and FD 132 ml: normal range Bladder compliance: abnormal - consistent rise in pDet until leak at ~100ml Detrusor overactivity: No Stress incontinence: Yes, 150 cm of H20 at 100 ml Total tolerated volume was 100ml Pressure Flow phase: Unable to void with catheters in place. Attempted valsalva void with no rise in pDet Catheters removed and Qmax 11 and pt was able to empty Abdominal strain:Yes EMG: DESD or abnormal patterns noted: No Video: Bladder remodeling, no VUR. No bladder neck opening appreciated. Impression: Small capacity bladder with poor compliance and BURKE at LONG TERM of 100ml. Bladder remodeling without VUR. Valsalva voiding with atonic detrusor. Will refer to consider bladder augmentation. Carmenza Nolen MD Voiding cystourethrogram- Voiding Cystourethrogram Patient Name - Aislinn Wheeler Date - April 02, 2024 Imaging exam - VCUG Number of images saved - 11 Patient position - Sitting Radiologic Findings: A sales and marketing executive radiograph was obtained. The bony and soft tissue structures are within normal. 147 ccs contrast were used to fill the bladder. The bladder outline is irregular/trabeculated and abnormal shaped appearing. There is no ureteral reflux. During the voiding phase there is abnormal bladder neck opening and urethra is not visualized. Bladder emptying is not visualized Read by - Carmenza Nolen MD [facility] 03-29-2024 Nurse Note [facility] UR[facility]NAMICS LAB URODYNAMIC PROCEDURE NOTE ID Verified by: Lorie Burrows RN with name and birthdate. Procedure instructions reviewed with patient prior to procedure: Yes Currently experiencing pain: No 0 on a scale of 0 to 10 on a scale of 0-10. Does the patient have any concerns about safety in the home/falls?: Not at risk for falls Has the patient had 2 falls in the last year or 1 fall with injury or currently using assistive device (walker, cane, wheelchair, crutches): No What interventions were put in place to prevent falls during this visit: Increased observations by caregivers Has patient had any history of Mitral Valve prolapse: No MEDS:NONE Has patient had any history of prosthetics: No MEDS: NONE Latex allergy: Yes Iodine allergy: No Females- Is patient : No Subcontract Administrator offered:Patient declines B/O UA: Yes, Negative for leukocytes and negative for nitrates. UROFLOWMETRY Voided vol: 17 ml. Flow time: 8 sec. Q max: 5 ml/sec. Q av ml/sec. PVR: 200 ml. CYSTOMETROGRAM Subtracted:Yes Video: Yes EMG: Yes First Sensation: 103 ml Strong desire: 164 ml Max. capacity: 170 ml Maximum filling detrusor pressure 33 cm of water Detrusor overactivity associated with urge: No Detrusor overactivity associated with leakage: No Was patient assessed for VLPP / UPP Yes Leaks urine with valsalva /coughs: Yes Lowest Leak point pressure: 129 cm of water at 103 ml PRESSURE-FLOW VOIDING STUDY Did patient void with catheters in place No Voided: 146 ml voluntary with pves removed Max Voiding Detrusor Pressure n/acm H2O P det @ Q max (Max Flow): n/a cm H2O Maximum Flow Rate: n/a ml/sec Average Flow Rate: n/a ml/sec Fluro time: see xray note Vaginal Packing for prolapse support: No Comments: Patient completed pretest uroflow with a void of 17ml and a PVR of 200ml. Patient filled to capacity. Steady rise in pdet with filling. Stressed patient sitting and had leak with cough x2 and vasalva x2. Permission to void given with strong desire and patient was unable to void. Pves removed and patient had voluntary void of 146ml. Patient pushing to void and states she can only void when she adjusts on the toilet and pushes. STUDY DETAILS: Was a uroflow done at some point during the study: Yes Was a cystometrogram performed: Yes Was a UPP/VLPP done: Yes Was an EMG done: Yes Was an intraabdominal pressure recorded with urethral catheter in: No Where were pressure catheters placed: Bladder and Rectum Was contrast instilled for radiologic evaluation: yes, 250 ml of conray contrast Please use Urodynamic Graph. Pt given verbal home going instructions. Pt states an understanding of instructions given. [facility] 03-29-2024 Nurse Note [facility] URODYNAMICS LAB URODYNAMIC PROCEDURE NOTE ID Verified by: Lorie Burrows RN with name and birthdate. Procedure instructions reviewed with patient prior to procedure: Yes Currently experiencing pain: No 0 on a scale of 0 to 10 on a scale of 0-10. Does the patient have any concerns about safety in the home/falls?: Not at risk for falls Has the patient had 2 falls in the last year or 1 fall with injury or currently using assistive device (walker, cane, wheelchair, crutches): No What interventions were put in place to prevent falls during this visit: Increased observations by caregivers Has patient had any history of Mitral Valve prolapse: No MEDS:NONE Has patient had any history of prosthetics: No MEDS: NONE Latex allergy: Yes Iodine allergy: No Females- Is patient : No Subcontract Administrator offered:Patient declines B/O UA: Yes, Negative for leukocytes and negative for nitrates. UROFLOWMETRY Voided vol: 17 ml. Flow time: 8 sec. Q max: 5 ml/sec. Q av ml/sec. PVR: 200 ml. CYSTOMETROGRAM Subtracted:Yes Video: Yes EMG: Yes First Sensation: 103 ml Strong desire: 164 ml Max. capacity: 170 ml Maximum filling detrusor pressure 33 cm of water Detrusor overactivity associated with urge: No Detrusor overactivity associated with leakage: No Was patient assessed for VLPP / UPP Yes Leaks urine with valsalva /coughs: Yes Lowest Leak point pressure: 129 cm of water at 103 ml PRESSURE-FLOW VOIDING STUDY Did patient void with catheters in place No Voided: 146 ml voluntary with pves removed Max Voiding Detrusor Pressure n/acm H2O P det @ Q max (Max Flow): n/a cm H2O Maximum Flow Rate: n/a ml/sec Average Flow Rate: n/a ml/sec Fluro time: see xray note Vaginal Packing for prolapse support: No Comments: Patient completed pretest uroflow with a void of 17ml and a PVR of 200ml. Patient filled to capacity. Steady rise in pdet with filling. Stressed patient sitting and had leak with cough x2 and vasalva x2. Permission to void given with strong desire and patient was unable to void. Pves removed and patient had voluntary void of 146ml. Patient pushing to void and states she can only void when she adjusts on the toilet and pushes. STUDY DETAILS: Was a uroflow done at some point during the study: Yes Was a cystometrogram performed: Yes Was a UPP/VLPP done: Yes Was an EMG done: Yes Was an intraabdominal pressure recorded with urethral catheter in: No Where were pressure catheters placed: Bladder and Rectum Was contrast instilled for radiologic evaluation: yes, 250 ml of conray contrast Please use Urodynamic Graph. Pt given verbal home going instructions. Pt states an understanding of instructions given. documented in this encounter [facility] 03-27-2024 Note HNO ID: [id number] Author: NURIA READ APRN.KIARA Service: ? Author Type: Nurse Practitioner Type: Progress Notes Filed: 03/27/2024 14:36 Note Text: Incidental Lung Nodule Enrollment Outreach attempt: 1st Attempt Outreach status: Complete Enrolled in Lung Nodule program: Referred Lung Nodule outreach: Needs outreach Lung Nodule Program Location: [facility] 03-27-2024 History of Presen t illness Narrative Incidental Lung Nodule Enrollment Outreach attempt: 1st Attempt Outreach status: Complete Enrolled in Lung Nodule program: Referred Lung Nodule outreach: Needs outreach Lung Nodule Program Location: [facility] documented in this encounter [facility] 03-27-2024 Note Patient Outreach (PM [id number]) LIAMAISLINN PAEZ ([id number]) 1960 F Date Time Provider Department 03/27/24 NURIA READ [id number] During your visit today, we recorded the following information about you: Nuria Read, ASHVIN.COLLECTION CARD CLERK 03/27/2024 2:36 PM Signed Incidental Lung Nodule Enrollment Outreach attempt: 1st Attempt Outreach status: Complete Enrolled in Lung Nodule program: Referred Lung Nodule outreach: Needs outreach Lung Nodule Program Location: [facility] Allergies As of Date: 03/27/2024 Noted Allergy Reaction LATEX 02/05/2020 2 - Rash Comments: Added based on information entered during case entry, please review and add reactions, type, and severity as needed Date Reviewed: 03/26/2024 Reviewed by: Carmenza Nolen MD - Fully Assessed Primary Visit Diagnosis:Lung nodule [R91.1] Prescriptions as of 04/01/2024 - metoprolol succinate ER (TOPROL XL) 50 mg 24 hr tablet Take 50 mg by mouth once daily. - insulin lispro (HUMALOG KWIKPEN) 100 unit/mL INJECT 4-6-8 UNITS SUBCUTANEOUSLY THREE TIMES DAILY plus sliding scale coverage 2 (TWO) (max DAILY dose OF 30 UNITS) - HYDROcodone-Acetaminophen (NORCO) 7.5-325 mg per tablet Take 1 tablet by mouth. - denosumab (PROLIA) 60 mg/mL Inject 60 mg subcutaneously once every 6 months. - amLODIPine (NORVASC) 5 mg tablet Take 5 mg by mouth once daily. - pregabalin (LYRICA) 150 mg capsule Take [...] of breath. Problem List As Of Date 03/27/2024 Noted Resolved Ureterolithiasis [N20.1] 01/17/2021 Acute bilateral [...] Urinary tract infection without hematuria [N39.*08/31/2023 09/04/2023 Letter Text Letter Text Encounter Status:Closed by NURIA READ on 03/27/24 [facility] 03-26-2024 Instructions Carmenza Nolen MD - 03/26/2024 11:31 AM EDT Images from the original note were not included. INFORMATION ON URODYNAMICS (BLADDER FUNCTION TEST) Getting Ready for the Test You do not have to fast before the test. Begin to drink 24-32 ounces of fluid (water, cranberry juice, milk, herbal tea) 90 minutes prior to the test so you arrive at the [facility] with the urge to empty your bladder. You should not be uncomfortable. If you have urinary urgency, you may adjust the amount of water and the time that you drink the water to suit the bladder. Avoid drinks with caffeine on the day of your test (e.g. coffee, tea and evangelina). Bathe or shower before your test. A woman's menstrual cycle does not interfere with the test. You may wear a tampon. If you currently wear a pessary for pelvic organ prolapse, please wear it to your appointment. You may find it more comfortable if you have a bowel movement before the test. This is not essential. Do not empty your bladder when you arrive at the [facility]. Speak with a nurse if you feel you must empty your bladder. If you are taking antibiotics for a urinary tract infection (UTI) or bladder infection, notify your physician's office immediately. We may reschedule your bladder test. Bring a list of all prescribed and [id number] medications you are taking. If you should need assistance due to a language barrier or medical needs/condition, please notify the fruit dumper when making your appointment and one will be provided for you ([phone]). If you are taking overactive bladder medications like Detrol (Tolterodine), Ditropan (Oxybutynin), Vesicare (Solifenacin), Enablex (Darifenacin), Gelnique (topical Oxybutynin), or Oxytrol (transdermal Oxybutynin) Sanctura (Trospium), Myrbetriq (Mirabegron), Toviaz (Fesoterodine) please discontinue for 3 days prior to testing. What Happens During the Test You change into a hospital gown. The nurse asks you about your symptoms and general health before starting the test. There are three phases to the test: Phase 1 You are asked to urinate into a container. The container is joined to a computer that records the speed and amount of urine you pass. Phase 2 A small catheter is inserted into your bladder and another small catheter is inserted into your rectum or vagina. Your bladder will be slowly filled with sterile water and the nurse will ask you a series of questions while your bladder is being filled. This part of the test shows what happens in the bladder as it fills. It measures: How much pressure there is How much fluid you hold before you feel full How much your bladder can hold If you leak when you cough or bear down Phase 3 The catheter and rectal or vaginal catheter are removed when your test is finished. documented in this encounter [facility] 03-26-2024 Note HNO ID: [id number] Author: CARMENZA NOLEN MD Service: ? Author Type: Physician Type: Progress Notes Filed: 03/26/2024 11:54 Note Text: [facility] FOR FEMALE PELVIC MEDICINE AND RECONSTRUCTIVE SURGERY HISTORY OF PRESENT ILLNESS: Aislinn Wheeler is a 63 year old F female here today for a follow up regarding voiding dysfunction. I saw her 2020 for retention with bilateral hydro associated with A1c 16.5. ISC rec at that time. Pt subsequently underwent robotic partial nephrectomy - path benign. UDS: No detrusor function on voiding- all valsalva voiding. No DO or BURKE. Able to void 89cc and instilled 318cc. Recently admitted with retention and bilateral hydro again and she was instructed to restart self cath. PVR 211ml last visit with Dr. Ballard 01/12/24. Most recent A1c 13.3 06/06/23. Reports more recently it was 7. Blood sugars consistently 100s Today, she reports severe UI. Fills a pad every hour. Has to wear depends and sometimes overflows. +enuresis. Was told to stop cathing, because she was mostly emptying her bladder. Had bladder botox injections at [facility] about 3 mo ago with no improvement. Tries ISC but continues to leak with an empty bladder. HISTORIES: PAST MEDICAL HISTORY PAST MEDICAL HISTORY No date: Anemia No date: Asthma No date: CKD (chronic kidney disease) No date: Diabetes (HCC) PAST SURGICAL HISTORY PAST SURGICAL HISTORY No date: ANKLE SURGERY HX; Left No date: HYSTERECTOMY HX No date: NECK SURGERY HX Comment: x2-- cervical disc No date: PAST SURGICAL HISTORY OF Comment: left large toe amputation No date: PAST SURGICAL HISTORY OF; Right Comment: right arm surgery No date: REMOVAL GALLBLADDER No date: SHOULDER SURGERY HX; Left FAMILY HISTORY FAMILY HISTORY Problem Relation Age of Onset Difficulty with anesthesia No Family History SOCIAL HISTORY Social History Tobacco Use Smoking status: Never Smokeless tobacco: Never Vaping Use Vaping Use: Never used Substance Use Topics Alcohol use: Yes Comment: rarely--holiday or special occ Drug use: Never MEDICATIONS: Current Outpatient Medications Medication Sig insulin lispro (HUMALOG KWIKPEN) 100 unit/mL INJECT 4-6-8 UNITS SUBCUTANEOUSLY THREE TIMES DAILY plus sliding scale coverage 2 (TWO) (max DAILY dose OF 30 UNITS) HYDROcodone-Acetaminophen (NORCO) 7.5-325 mg per tablet Take 1 tablet by mouth. denosumab (PROLIA) 60 mg/mL Inject 60 mg subcutaneously once every 6 months. amLODIPine (NORVASC) 5 mg tablet Take 5 mg by mouth once daily. FEROSUL 325 mg (65 mg iron) tablet Take 1 tablet by mouth three times daily with meals. VITAMIN B-12 1,000 mcg tab Take 1,000 mcg by mouth once daily. insulin aspart (NOVOLOG FLEXPEN U-100 INSULIN SUBCUTANEOUS) Inject subcutaneously. Sliding scale insulin glargine (LANTUS) 100 unit/mL injection Inject 25 Units subcutaneously daily at bedtime. albuterol HFA (PROVENTIL HFA, VENTOLIN HFA) 90 mcg/actuation inhaler Inhale 2 Puffs as instructed every 6 hours as needed for wheezing/shortness of breath. metoprolol succinate ER (TOPROL XL) 50 mg 24 hr tablet Take 50 mg by mouth once daily. pregabalin (LYRICA) 150 mg capsule Take 1 capsule by mouth two times a day for 30 days. No current facility-administered medications for this visit. 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 Normal urethra. No masses or tenderness. Minimal hypermobility but +SCT Normal vagina. 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 Carmenza Nolen MD [facility] 03-26-2024 History of Presen t illness Narrative [facility] FOR FEMALE PELVIC MEDICINE AND RECONSTRUCTIVE SURGERY HISTORY OF PRESENT ILLNESS: Aislinn Wheeler is a 63 year old F female here today for a follow up regarding voiding dysfunction. I saw her 2020 for retention with bilateral hydro associated with A1c 16.5. ISC rec at that time. Pt subsequently underwent robotic partial nephrectomy - path benign. UDS: No detrusor function on voiding- all valsalva voiding. No DO or BURKE. Able to void 89cc and instilled 318cc. Recently admitted with retention and bilateral hydro again and she was instructed to restart self cath. PVR 211ml last visit with Dr. Ballard 01/12/24. Most recent A1c 13.3 06/06/23. Reports more recently it was 7. Blood sugars consistently 100s Today, she reports severe UI. Fills a pad every hour. Has to wear depends and sometimes overflows. +enuresis. Was told to stop cathing, because she was mostly emptying her bladder. Had bladder botox injections at [facility] about 3 mo ago with no improvement. Tries ISC but continues to leak with an empty bladder. HISTORIES: PAST MEDICAL HISTORY PAST MEDICAL HISTORY No date: Anemia No date: Asthma No date: CKD (chronic kidney disease) No date: Diabetes (HCC) PAST SURGICAL HISTORY PAST SURGICAL HISTORY No date: ANKLE SURGERY HX; Left No date: HYSTERECTOMY HX No date: NECK SURGERY HX Comment: x2-- cervical disc No date: PAST SURGICAL HISTORY OF Comment: left large toe amputation No date: PAST SURGICAL HISTORY OF; Right Comment: right arm surgery No date: REMOVAL GALLBLADDER No date: SHOULDER SURGERY HX; Left FAMILY HISTORY FAMILY HISTORY Problem Relation Age of Onset Difficulty with anesthesia No Family History SOCIAL HISTORY Social History Tobacco Use Smoking status: Never Smokeless tobacco: Never Vaping Use Vaping Use: Never used Substance Use Topics Alcohol use: Yes Comment: rarely--holiday or special occ Drug use: Never MEDICATIONS: Current Outpatient Medications Medication Sig insulin lispro (HUMALOG KWIKPEN) 100 unit/mL INJECT 4-6-8 UNITS SUBCUTANEOUSLY THREE TIMES DAILY plus sliding scale coverage 2 (TWO) (max DAILY dose OF 30 UNITS) HYDROcodone-Acetaminophen (NORCO) 7.5-325 mg per tablet Take 1 tablet by mouth. denosumab (PROLIA) 60 mg/mL Inject 60 mg subcutaneously once every 6 months. amLODIPine (NORVASC) 5 mg tablet Take 5 mg by mouth once daily. FEROSUL 325 mg (65 mg iron) tablet Take 1 tablet by mouth three times daily with meals. VITAMIN B-12 1,000 mcg tab Take 1,000 mcg by mouth once daily. insulin aspart (NOVOLOG FLEXPEN U-100 INSULIN SUBCUTANEOUS) Inject subcutaneously. Sliding scale insulin glargine (LANTUS) 100 unit/mL injection Inject 25 Units subcutaneously daily at bedtime. albuterol HFA (PROVENTIL HFA, VENTOLIN HFA) 90 mcg/actuation inhaler Inhale 2 Puffs as instructed every 6 hours as needed for wheezing/shortness of breath. metoprolol succinate ER (TOPROL XL) 50 mg 24 hr tablet Take 50 mg by mouth once daily. pregabalin (LYRICA) 150 mg capsule Take 1 capsule by mouth two times a day for 30 days. No current facility-administered medications for this visit. 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 Normal urethra. No masses or tenderness. Minimal hypermobility but +SCT Normal vagina. 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 Carmenza Nolen MD Pt voided upon arrival. PVR = 205 ml Via bladder scan. Pt was doing ISC, but was told she could stop. Pt instructed to give a urine specimen. 2ND Repeat PVR PVR = 135 ml Via bladder scan. documented in this encounter [facility] 03-26-2024 Note HNO ID: [id number] Author: MARIA TERESA JOHNSON MA Service: ? Author Type: Fast Food Supervisor Type: Progress Notes Filed: 03/26/2024 11:54 Note Text: Pt voided upon arrival. PVR = 205 ml Via bladder scan. Pt was doing ISC, but was told she could stop. Pt instructed to give a urine specimen. 2ND Repeat PVR PVR = 135 ml Via bladder scan. [facility] 02-26-2024 Telephone encounter Note Pt LVM asking for her CT scan results. Noted in pt chart was an unread message from regarding the most recent CT scan. LVM for pt and let her know about MyChart message and provided number if pt has any further questions. [facility] 02-26-2024 Miscellaneous Notes Pt LVM asking for her CT scan results. Noted in pt chart was an unread message from regarding the most recent CT scan. LVM for pt and let her know about MyChart message and provided number if pt has any further questions. documented in this encounter [facility] 02-12-2024 Telephone encounter Note Patient LVM requesting results from 02/01/24 CT Urogram. Will update medical team [facility] 02-12-2024 Miscellaneous Notes Patient LVM requesting results from 02/01/24 CT Urogram. Will update medical team documented in this encounter [facility] 02-01-2024 Note HNO ID: [id number] Author: PRERNA CORRAL RT(R) Service: ? Author Type: Technologist Type: Progress Notes Filed: 02/01/2024 15:01 Note Text: Radiology Service Progress Note PATIENT NAME: Aislinn Wheeler DATE OF SERVICE: February 01, 2024 TIME: 2:50 PM PATIENT IDENTITY VERIFICATION COMPLETED USING TWO (2) IDENTIFIERS: Name and Date of confirmed by patient verbally. FALL SCREENING: Has the patient had 2 falls in the last year or 1 fall with injury or currently using an Ambulatory Assistive Device (Walker, Cane, Wheelchair, Crutches, etc.)? No PATIENT GENDER DATA: Female. status: : No status: NO. PATIENT RELEVANT IMPLANT DATA REVIEWED: Not Applicable PATIENT PRESENTS WITH AN IMPLANTABLE OR ATTACHED COMMERCIAL MAINTENANCE TECHNICIAN: No RADIOLOGY DEPARTMENT: CT; Exam(s) Completed: Urogram PERIPHERAL IV DATA: Site assessment: Clean,Dry and Intact, Site disposition Discontinued SIGNED BY: RT Michael(R) February 01, 2024 2:50 PM [facility] 02-01-2024 Note HNO ID: [id number] Author: HEIDY LINDA RN Service: Nursing Author Type: Registered Nurse Type: Progress Notes Filed: 02/01/2024 14:51 Note Text: Radiology Service Progress Note DATE OF SERVICE: February 01, 2024 TIME: 2:50 PM PATIENT WEIGHT: 57.6KG PATIENT IDENTITY VERIFICATION COMPLETED USING TWO (2) STANDARD IDENTIFIERS: Name and Date of confirmed by patient verbally. FALL SCREENING: Has the patient had 2 falls in the last year or 1 fall with injury or currently using an Ambulatory Assistive Device (Walker, Cane, Wheelchair, Crutches, etc.)? No PATIENT GENDER DATA: Female. status: : No status: NO. ALLERGIES: Reviewed and unchanged CONTRAST ALLERGY: No EXAM: CT -CONTRAST INDUCED NEPHROPATHY RISK FACTORS: Patient age > 60 years and Diabetic: No CREATININE: Creatinine Date Value Ref Range Status 02/01/2024 1.78 (H) 0.58 - 0.96 mg/dL Final 09/03/2023 1.29 (H) 0.58 - 0.96 mg/dL Final 09/02/2023 1.30 (H) 0.58 - 0.96 mg/dL Final Estimated Glomerular Filtration Rate Date Value Ref Range Status 02/01/2024 31 (L) >=60 mL/min/1.73m? Final Comment: Estimated Glomerular Filtration Rate (eGFR) is calculated using the 2020 CKD-EPI creatinine equation. This equation utilizes serum creatinine, sex, and age as parameters. The creatinine assay has traceable calibration to isotope dilution-mass spectrometry. Refer to KDIGO guidelines for clinical interpretation. In patients with unstable renal function, e.g. those with acute kidney injury, the eGFR may not accurately reflect actual GFR. eGFR- Date Value Ref Range Status 01/29/2021 48 (L) >60 Final P.O.C.T. RESULTS: POC done: Yes, See Lab Tab February 01, 2024 TREATMENT: N/A IV SITE: Ambulatory: A peripheral IV was started in the Right forearm with a Angio cath: 20 gauge. IV SITE APPEARANCE: Clean,Dry and Intact SIGNATURE: Heidy Linda RN PATIENT NAME: Aislinn Wheeler DATE: February 01, 2024 TIME: 2:50 PM [facility] 01-12-2024 Note HNO ID: [id number] Author: SANJANA CALLAWAY MA Service: ? Author Type: Fast Food Supervisor Type: Progress Notes Filed: 01/12/2024 14:43 Note Text: Post Void Residual done on patient with 211 cc residual volume remaining. notified. Sanjana Callaway MA [facility] 01-12-2024 History of Presen t illness Narrative Post Void Residual done on patient with 211 cc residual volume remaining. notified. Sanjana Callaway MA [facility] UROLOGICAL NOVINGER FOLLOW-UP PATIENT HISTORY AND PHYSICAL EXAM PATIENT INFO: Aislinn Wheeler 63 year old REFERRING M.D.: No referring provider defined for this encounter. 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 Cr was 2.08 on 01/10/2024 and 1.97 on 01/11/2024. Pt presents with hydro and retention Patient reports feeling okay today. She is recovering from her recent hospitalization. She has a history of urinary retention requiring CIC. RBUS 01/10/2024: mildly increased renal cortical echo texture, consider medical renal disease Moderate to severe right and moderate left hydronephrosis of unknown etiology Elevated flow velocity left mid renal artery, which could result in renovascular hypertension Surgical Pathology: 06/22/2023 FINAL DIAGNOSIS A. 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 - 7.2 cm gross greatest dimension of tissue specimen (defer to clinical/imaging for overall lesion size). LABS Creatinine (mg/dL) Date Value 09/03/2023 1.29 09/02/2023 1.30 09/01/2023 1.39 08/31/2023 2.15 06/23/2023 1.39 01/29/2021 1.35 01/21/2021 1.51 01/20/2021 1.46 01/19/2021 1.92 01/19/2021 1.93 PAST MEDICAL HISTORY Diagnosis Date Anemia Asthma CKD (chronic kidney disease) Diabetes (HCC) PAST SURGICAL HISTORY Procedure Laterality Date ANKLE SURGERY HX Left HYSTERECTOMY HX NECK SURGERY HX x2-- cervical disc PAST SURGICAL HISTORY OF left large toe amputation PAST SURGICAL HISTORY OF Right right arm surgery REMOVAL GALLBLADDER SHOULDER SURGERY HX Left Social History Tobacco Use Smoking status: Never Smokeless tobacco: Never Vaping Use Vaping Use: Never used Substance Use Topics Alcohol use: Yes Comment: rarely--holiday or special occ Drug use: Never REVIEW OF SYSTEMS: CONSTITUTIONAL: [...] yr old female with a 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 Patient was lost to follow up. She was recently hospitalized Cr was 2.08 on 01/10/2024 and 1.97 on 01/11/2024. Pt presents with hydro and retention. Patient has a history of retention requiring CIC. Discussed restarting CIC 1 time per day and monitoring output. Her PVR was elevated at 211 cc today. Discussed proceeding with a CT urogram to further assess the cause of her b/l hydronephrosis. Pt has stress urinary incontinence. Will refer to Dr. Nolen PLAN: CIC 1 time per day with 12f catheter for urinary retention CT urogram Will refer to Dr. Tamanna Ruiz APRN.COLLECTION CARD CLERK Attending Note I have personally performed a face to face assessment of the patient and have reviewed the ELIF note. I performed a substantive portion of the visit including all aspects of the following. My miller findings include: Medical Decision Making 63-year-old female with a history of urinary retention and left robotic partial nephrectomy for benign tumor. Recently seen on outside hospital and found to have hydronephrosis bilaterally. We reinforced the importance of doing CIC once or twice a day. She does also describe stress urinary incontinence and I recommended follow-up with my partners to discuss options for her stress incontinence. With respect to follow-up of her kidney tumor I recommend a CT urogram. This will also evaluate the ureters to ensure that there is another cause for her bilateral hydro. Other additions or changes: As edited Signature: Dr. Taurus Ballard MD Date: 01/12/2024 Time: 2:11 PM By signing my name below, I, Ivania Vidal, attest that this documentation has been prepared under the direction and in the presence of Dr. Ballard Electronically signed, Power lBanco I agree with the Chief Complaint, ROS, and Past Histories independently gathered by the clinical direct support staff member and the remaining scribed note accurately describes my personal service to the patient. Dr. Taurus Ballard MD documented in this encounter [facility] 01-12-2024 Note HNO ID: [id number] Author: TAURUS BALLARD MD Service: ? Author Type: Physician Type: Progress Notes Filed: 01/12/2024 14:43 Note Text[facility] PATIENT HISTORY AND PHYSICAL EXAM PATIENT INFO: Aislinn Wheeler 63 year old REFERRING M.D.: No referring provider defined for this encounter. 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 Cr was 2.08 on 01/10/2024 and 1.97 on 01/11/2024. Pt presents with hydro and retention Patient reports feeling okay today. She is recovering from her recent hospitalization. She has a history of urinary retention requiring CIC. RBUS 01/10/2024: mildly increased renal cortical echo texture, consider medical renal disease Moderate to severe right and moderate left hydronephrosis of unknown etiology Elevated flow velocity left mid renal artery, which could result in renovascular hypertension Surgical Pathology: 06/22/2023 FINAL DIAGNOSIS A. 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 - 7.2 cm gross greatest dimension of tissue specimen (defer to clinical/imaging for overall lesion size). LABS Creatinine (mg/dL) Date Value 09/03/2023 1.29 09/02/2023 1.30 09/01/2023 1.39 08/31/2023 2.15 06/23/2023 1.39 01/29/2021 1.35 01/21/2021 1.51 01/20/2021 1.46 01/19/2021 1.92 01/19/2021 1.93 PAST MEDICAL HISTORY Diagnosis Date Anemia Asthma CKD (chronic kidney disease) Diabetes (HCC) PAST SURGICAL HISTORY Procedure Laterality Date ANKLE SURGERY HX Left HYSTERECTOMY HX NECK SURGERY HX x2-- cervical disc PAST SURGICAL HISTORY OF left large toe amputation PAST SURGICAL HISTORY OF Right right arm surgery REMOVAL GALLBLADDER SHOULDER SURGERY HX Left Social History Tobacco Use Smoking status: Never Smokeless tobacco: Never Vaping Use Vaping Use: Never used Substance Use Topics Alcohol use: Yes Comment: rarely--holiday or special occ Drug use: Never REVIEW OF SYSTEMS: CONSTITUTIONAL: [...] yr old female with a 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 Patient was lost to follow up. She was recently hospitalized Cr was 2.08 on 01/10/2024 and 1.97 on 01/11/2024. Pt presents with hydro and retention. Patient has a history of retention requiring CIC. Discussed restarting CIC 1 time per day and monitoring output. Her PVR was elevated at 211 cc today. Discussed proceeding with a CT urogram to further assess the cause of her b/l hydronephrosis. Pt has stress urinary incontinence. Will refer to Dr. Nolen PLAN: CIC 1 time per day with 12f catheter for urinary retention CT urogram Will refer to Dr. Tamanna Ruiz APRN.COLLECTION CARD CLERK Attending Note I have personally performed a face to face assessment of the patient and have reviewed the ELIF note. I performed a substantive portion of the visit including all aspects of the following. My miller findings include: Medical Decision Making 63-year-old female with a history of urinary retention and left robotic partial nephrectomy for benign tumor. Recently seen on outside hospital and found to have hydronephrosis bilaterally. We reinforced the importance of doing CIC once or twice a day. She does also describe stress urinary incontinence and I recommended follow-up with my partners to discuss options for her stress incontinence. With respect to follow-up of her kidney tumor I recommend a CT urogram. This will also evaluate the ureters to ensure that there is another cause for her bilateral hydro. Other additions or changes: As edited Signature: Dr. Taurus Ballard MD Date: 01/12/2024 (more content not included)... [facility] 11-06-2023 Miscellaneous Notes Last Office Visit: 08/09/2024 Next Office Visit: 11/22/2023 Last Urine Drug Screen: Lab Results Component Value Date BENZOSCRN Negative 08/09/2023 OARRS appropriate documented in this encounter [facility] 11-06-2023 Telephone encounter Note Last Office Visit: 08/09/2024 Next Office Visit: 11/22/2023 Last Urine Drug Screen: Lab Results Component Value Date BENZOSCRN Negative 08/09/2023 [facility] appropriate [facility] Discharg e instructions Patient Education [...] including vitamins, herbs, eye drops, creams, and ydbv-hxi-lqlrebu medicines. Any problems you or family members [...] provider tells you to take them. Taking srnx-vvp-exvspnj medicines, vitamins, herbs, and supplements. General instructions [...] Follow these instructions at home: Medicines Take dcex-vjo-anlfpui and prescription medicines only as told by [...] provider. Document Revised: 02/11/2022 Document Reviewed: 02/11/2022 [employer] Patient Education 2022 [employer]. Follow Up Care 09/26/2023 08:43:34 With:CATALINA VIRGEN, HEIDY Rodriguez, URL Address: [address] [place] [address] When: Unknown [facility] 10-10-2023 Miscellaneous Notes Last OV: 08/12/23 Next OV: proc 10/13/23 OARRS appropriate: yes Last UDS: 08/12/23 Pharmacy[facility] documented in this encounter [facility] 10-10-2023 Telephone encounter Note Last OV: 08/12/23 Next OV: proc 10/13/23 OARRS appropriate: yes Last UDS: 08/12/23 Pharmacy: [facility] 09-27-2023 Miscellaneous Notes Summary: [facility] IRB# [id number] IRB# [id number]: Vascular events in patients undergoing same-day nonCardiac surgery - [facility] PI: Mary Rojas MD, LETY, BARNEY. Outcomes Research Department. Anesthesia [place]. [facility]. Aislinn Wheeler was unavailable at the listed phone number. We will attempt to contact the patient through HeTexted message. Drew Esqueda, Research Coordinator Research Coordinator documented in this encounter [facility] 09-26-2023 Miscellaneous Notes Summary: [facility] IRB# [id number] IRB# [id number]: Vascular events in patients undergoing same-day nonCardiac surgery - [facility] PI: Mary Rojas MD, LETY, BARNEY. Outcomes Research Department. Anesthesia [place]. [facility]. Aislinn Wheeler was unavailable at the listed phone number. We will attempt to contact the patient again at a later date. Drew Esqueda Research Coordinator Research Coordinator documented in this encounter [facility] 09-07-2023 Miscellaneous Notes Last OV: 08/09/2023 Next OV: --- OARRS appropriate: yes Last UDS: 08/09/2023 Pharmacy[facility] Patient left phone message requesting refill on Lavinia and Lyrica. Lyrica prescription signed 08/11/2023 has 1 refill. Per OARRS patient last filled Lyrica 08/11/2023. Lavinia prescription pended for review and signature. Patient's fill dated adjusted from 09/14/23 to 09/17/23 due to recent 3 day hospitalization. documented in this encounter [facility] 09-07-2023 Telephone encounter Note Last OV: 08/09/2023 Next OV: --- OARRS appropriate: yes Last UDS: 08/09/2023 Pharmacy[facility] Patient left phone message requesting refill on Lavinia and Lyrica. Lyrica prescription signed 08/11/2023 has 1 refill. Per OARRS patient last filled Lyrica 08/11/2023. Lavinia prescription pended for review and signature. [facility] 09-07-2023 Telephone encounter Note Patient's fill dated adjusted from 09/14/23 to 09/17/23 due to recent 3 day hospitalization. [facility] 09-03-2023 Note HNO ID: [id number] Author: KRYSTA SULLIVAN MD Service: Hospital Medicine [...] Units SUBCUTANEOUS EVERY 12 HOURS Given, 09/03 0809/01/23 1135 -- 08/31/23 1115 activity - mobilize patient (fl,oh) VTE Prophylaxis: VTE prophylaxis appropriate SIGNATURE: Krysta Sullivan MD PATIENT NAME: Aislinn Wheeler DATE: September 03, 2023 TIME: 6:31 PM [facility] 09-02-2023 Note HNO ID: [id number] Author: KRYSTA SULLIVAN MD Service: Hospital Medicine [...] -- 08/31/23 1115 activity - mobilize patient (dc,az) VTE Prophylaxis: VTE prophylaxis appropriate SIGNATURE: Krysta Sullivan MD PATIENT NAME: Aislinn Wheeler DATE: September 02, 2023 TIME: 2:31 PM [facility] 09-02-2023 Note HNO ID: [id number] Author: NOTE, INTERFACE, ? Service: ? Author Type: ? Type: Progress Notes Filed: 09/02/2023 02:20 Note Text: Epic Scheduled Downtime: 09/02/2023 1:00:00 AM to 09/02/2023 2:04:22 AM [facility] 09-01-2023 Note HNO ID: [id number] Author: MIKE LOUIS RN Service: Care Management Author Type: Registered Nurse Type: Care Mgt Progress Note Filed: 09/01/2023 15:30 Note Text: CARE MANAGEMENT WEEKEND PLANNING NOTE NO WEEKEND DISCHARGE Disposition: TBD Anticipated Discharge Date: No weekend DC anticipated Weekend Corrosion Engineer Pager #: Girish Ken BRAN [phone] ANATOLIY UTI - repeat UA sent - pending Waiting on podiatry consult SIGNATURE: Mike Louis RN PATIENT NAME: Aislinn Wheeler DATE: September 01, 2023 TIME: 3:28 PM PAGER/CONTACT #: [phone] [facility] 09-01-2023 Note HNO ID: [id number] Author: ANTHONY BARROW MD Service: Hospital Medicine [...] -- 08/31/23 1115 activity - mobilize patient (dc,az) VTE Prophylaxis: VTE prophylaxis appropriate SIGNATURE: Anthony Barrow MD PATIENT NAME: Aislinn Wheeler DATE: September 01, 2023 TIME: 11:36 AM [facility] 08-31-2023 History of Past i llness [...] of this encounter (statuses as of 09/27/2023) [facility]01-11-2024 History of Past illness Narrative* Problem Noted Date Diagnosed Date Resolved Date Fever 08/31/2023 09/04/2023 Urinary tract infection without hematuria 08/31/2023 09/04/2023 Acute cystitis without hematuria 01/18/2021 01/21/2021 Pyelonephritis 01/17/2021 01/21/2021 Sepsis 01/17/2021 01/21/2021 Hyponatremia 01/17/2021 01/21/2021 Hyperkalemia 01/17/2021 09/04/2023 ANATOLIY (acute kidney injury) 01/17/2021 Hydronephrosis due to obstruction of ureter 01/17/2021 01/21/2021 documented as of this encounter (statuses as of 09/28/2023) [facility]20[facility] History of Past illness Narrative* Problem Noted Date Diagnosed Date Resolved Date Fever 08/31/2023 09/04/2023 Urinary tract infection without hematuria 08/31/2023 09/04/2023 Acute cystitis without hematuria 01/18/2021 01/21/2021 Pyelonephritis 01/17/2021 01/21/2021 Sepsis 01/17/2021 01/21/2021 Hyponatremia 01/17/2021 01/21/2021 Hyperkalemia 01/17/2021 09/04/2023 ANATOLIY (acute kidney injury) 01/17/2021 Hydronephrosis due to obstruction of ureter 01/17/2021 01/21/2021 documented as of this encounter (statuses as of 09/28/2023) [facility]01-11-2024 NoteHNO ID: [id number] Author: TIN QUIÑONEZ LSW Service: Care Management Author Type: Fan Engine Engineer Type: Care Mgt Initial Assessment Filed: 08/31/2023 14:02 Note Text: CARE MANAGEMENT: ASSESSMENT AND DISCHARGE PLAN SERVICE DATE: August 31, 2023 SERVICE TIME: 1:42 PM PCP: Agusto Olmstead Primary Contact: Extended Emergency Contact Information Primary Emergency Contact: LOLA SEARS Mobile Relation: Grandchild Admission Status: Inpatient Insurance Provider: UHC AARP MEDICARE PPO Discharge Planning requested by: Per Department Practice Potential Transition Plans To Be Determined Advance Directives Current Advance Directive: None Studio Manager Attempted to Assist with AD Completion: Yes Action: Education Provided Current Living Arrangements and Support Lives with: Family members, Children Type of Residence: Private Residence (House) Support: Family members How do you manage to accomplish the following: Independent: Ambulation;Bathe/Shower;Dress;Meals/Meal Prep;Going to the bathroom;Medication Management;Transportation to appointments/community Current Services/Equipment Current Post-Acute Service(s): None Discharge Planning Patient Goal(s): General wellness [place] Explained: [place] Given: No Reason Not Given: [...] with pt at bedside. Pt lives in [place] with her grandchildren (18, 17, and 13). [...] 31, 2023 TIME: 1:42 PM CONTACT #: [id number] Evaluation note* Encounter Date Diagnosis Assessment Notes Treatment Notes Treatment Clinical Notes Jun, Vitamin B12 deficiency (ICD-10 - E53.8) [facility] [employer] Other 11-03-2023 NoteHNO ID: [id number] Author: Lakisha Kaye Service: ? Author Type: ? Type: Plan of Care Filed: 06/26/2023 9:53 AM Note Text: PHARMACY BEDSIDE DELIVERY SERVICE Patient Name: Aislinn Wheeler The marked outpatient medications were Filled at: [facility] Medication List START taking these medications acetaminophen [...] prescribed them or your Primary Care Provider. Lakisha Kaye PAGER: [phone] June 26, 2023 9:52 [facility]11-03-2023 Miscellaneous Notes* Telephone Encounter - Heidy Garcia RN - 06/23/2023 9:03 AM EDT Patient had left robotic partial nephrectomy by Dr. Ballard on 06/22/2023 Will call for surgical follow up once discharged [facility]23 NoteHNO ID: [id number] Author: Taurus Ballard MD Service: Urology Author Type: Physician Type: Progress Notes Filed: 06/23/2023 1:37 PM Note Text: [facility] UROLOGICAL AND KIDNEY NOVINGER UROLOGY PROGRESS NOTE Name: Aislinn Wheeler Bed: [id number] Date: June 23, 2023 After Hours [facility] Urology Service Pager: [phone] ASSESSMENT AND PLAN Aislinn Wheeler is a [...] Jeet De La Fuente MD Urology Resident [facility]rological [facility] Kidney [place] Pager [phone] SUBJECTIVE -c/o pain, had a BM, no [...] 0659 06/23/23 0700 - 06/24/23 0659 Shift 9771-9514 2022-0195 5102-6650 24 Hour Total 2560-1924 6671-1222 2272-8956 24 Hour Total INTAKE IV 1600 1600 Volume (mL) (lactated ringers iv infusion) 1000 1000 Volume (mL) (lactated ringers iv infusion) 600 600 Shift Total 1600 1600 OUTPUT Urine 300 159 942 4730 OR Urine Output 300 300 Output ( Indwelling Urinary Catheter 06/22/23 1130 Chaves 16 Fr) 857 789 2047 Tubes 20 40 60 Drain/Tube Output (Drain/Tube 06/22/23 1333 Lex Vega Right Lower Quadrant Abdomen Drain #1) 20 40 60 # of BMs Number of BMs 1 x 1 x Blood 50 50 Estimated Blood loss 50 50 Shift Total 350 809 744 7004 Weight (kg) 59 59 59 59 59 [...] We will call with pathology. Taurus Ballard MDGroton Community [id number] NoteHNO ID: [id number] Author: Linda Nicholson RN Service: Nursing Author Type: Registered Nurse Type: Nursing Progress Note Filed: 06/22/2023 2:15 PM Note Text: surgical dressing: surgical glue, [facility]11-02-2023 NoteHNO ID: [id number] Author: Lola Be APRN.FIELD SUPERVISOR SEED PRODUCTION Service: ? Author Type: Nurse Gas Check Pad Maker Type: Anesthesia Procedure Notes Filed: 06/22/2023 12:24 PM Note Text: ANESTHESIOLOGY PROCEDURE NOTE Airway General Information Procedure Start Time/Medication Administration: 06/22/2023 11:22 AM Patient location during procedure: OR Patient identity confirmed: arm band, care athletic team physician and patient Staffing FIELD SUPERVISOR SEED PRODUCTION: Lola Be APRN.FIELD SUPERVISOR SEED PRODUCTION Performed by: QUIRINO Indications and Patient Condition [...] Comments Atraumatic insertion, baseline dentition intact SIGNATURE: Lola Be APRN.FIELD SUPERVISOR SEED PRODUCTION PATIENT NAME: Aislinn Wheeler DATE: June 22, 2023 TIME: 12:24 PM CSN: [id number] Miscellaneous Notes* Telephone Encounter - Vonnie Wilder RN - 06/15/2023 11:24 AM EDT Attempted to call patient for pre op instructions.mailbox is full and unable to LVM. Will try again. documented in [facility] encounter[facility] Evaluation note* Encounter Date Diagnosis Assessment Notes Treatment Notes Treatment Clinical Notes 19 Oct, 2023 Insulin long-term use (ICD-10 - Z79.4) May, [...] (ICD-10 - Z68.25) May, Other see above [employer] [employer] Other 10-02-2023 Note [id number]:[id number] [facility] 05-22-2023 NoteCystoscopy with Botox injection ? Voiding [...] if you have a fever over 100 degrees.[facility] 05-22-2023 Hospital Discharge instructions Patient Education 05/22/2023 [...] Up Care 05/03/2023 10:48:47 With:Lisa Porras Address: [address] [place] [phone] Business (1) [address], [address] [facility] [facility] [address] [place] [address]- [phone] Business (1) When: Unknown Comments:Office to schedule follow up in 1 month with [facility]09-28-2023 Evaluation note* Encounter Date Diagnosis Assessment Notes [...] 24.0-24.9, adult (ICD-10 - Z68.24) see above [employer] Other 09-28-2023 Miscellaneous Notes* Telephone Encounter - Agusto Faulkner - 05/18/2023 12:57 PM EDT Consult notes sent back to Dr. Lisa Porras , phone [phone]. From Dr. Ballard office. documented in this encounterUniversity [facility]als [facility]09-27-2023 NoteHNO ID: [id number] Author: Taurus Ballard MD Service: ? Author Type: Physician Type: Progress Notes Filed: 05/17/2023 1:35 PM Note Text: [facility] FOLLOW-UP PATIENT HISTORY AND PHYSICAL [...] 1.92 01/19/[address] scan (outside records) [facility] 09/28/21 IMPRESSION: Since the prior CT [...] threatening or minor complicatio (more content not included)...[facility] Discharge instructions Patient Education 02/22/2023 09:35:15 [...] provider. Document Revised: 12/16/2021 Document Reviewed: 12/16/2021 [employer] Patient Education 2022 [employer]. Follow Up Care 09/13/2022 14:59:43 With:Vern TAVERAS, Lisa Montiel, URL, URO Address: When:Within 2 Month(s) Comments:w/ [facility] 05-09-2023 Evaluation note* Encounter Date Diagnosis Assessment [...] N28.1) Patient follows with urology clinic in [facility] for enlarging left renal cyst. December, [...] her blood pressure persistently more than 150/90. [employer] Other 02-01-2023 Hospital Discharge instructions Patient Education [...] 07/24/2013 Document Revised: 03/27/2019 Document Reviewed: 03/27/2019 [employer] Patient Education 2020 [employer] Follow Up Care 09/14/2022 14:44:34 With:Vern TAVREAS, EMELINA Hernandez, URO Address: When: Unknown [facility] 01-24-2023 Hospital Discharge instructions Patient [...] fried and sweet foods. General instructions Take gciu-yky-xptdbdy and prescription medicines only as told by [...] 06/03/2010 Document Revised: 11/28/2019 Document Reviewed: 08/23/2018 [employer] Patient Education 2020 [employer]. Follow Up Care 08/24/2022 11:21:49 With:HEIDY ARNOLD PA-C, URL Address: [address] [place], [place] [address] [address] When: Unknown [facility] 06-09-2021 Miscellaneous Notes* Telephone Encounter - Barbara Talbot - 01/27/2021 10:30 AM EDT Scheduled 02/15 * Telephone Encounter - Barb Silva MD - 01/27/2021 9:40 AM EDT Please schedule hospital follow up with Guy Overton Deitzer or Sasha. Virtual ok documented in this encounterUniversity Hospitals Beachwood [facility] Center06-03-2021 NoteHNO ID: [id number] Author: Griselda Diaz ([employer]) Service: ? Author Type: ? Type: Plan [...] Generic drug: insulin detemir U-100 Griselda Diaz ([employer]) PAGER: paris January 21, 2021 4:27 [facility] NoteHNO ID: [id number] Author: ELIZABETH Kothari Service: Care Management Author Type: Fan Engine Engineer Type: Care Mgt Progress Note Filed: 01/21/2021 1:39 PM Note Text: CARE MANAGEMENT DISCHARGE NOTE SERVICE DATE: 01/21/2021 SERVICE TIME: 1300 LOS: 4 days Admission Date: 01/17/2021 DISCHARGE ARRANGEMENT (list agency and phone number) Discharge Arrangement: Home;Home Nursing Home Care: Nursing;PT;OT [facility] ASSESSMENT: Maira Davila to transport home [phone] HANDOFF COMMUNICATION: Handoff to: Other Caregiver;Primary Care Physician Primary Care Physician Name/Phone: Madeline Jordan PA-C Other Caregiver Name/Phone: [facility] TRANSPORTATION ARRANGEMENTS: Transportation Arrangements: Car (Family to transport) ADDITIONAL CONTACT RESOURCES: [facility] not able to accept. [place] of choice provided and sent to first available to accept to her service area. [facility] willing to accept. Pt concerned she does not have [employer] part B to cover services. I spoke with grdtr who plans on paying for services out of pocket until pt's insurance becomes active February 18, 2021 Discharge Information Row Name ED to Hosp-Admission (Current) from 01/17/[address] Care Agency [facility] Fax# Care to start after your appointment with internal medicine on 01/25/2021 for additional orders. The agency will be contacting you to set this up [facility] [employer] Equipment Needed Walker was delivered to hospital room prior to discharge [facility] willing to accept pending pt has her initial appointment with internal medicine on 01/25/2021. Both pt and maira Davila were advised. Dr Hansen also provided script for outpt therapy should home care fall through or cost too high for maira to cover. Lola to call [facility] to discuss further. Walker was delivered to room and prescription was sent to [facility]. Lola to oyster picker. No other homegoing needs. SIGNATURE: ELIZABETH Kothari PATIENT NAME: Aislinn Wheeler DATE: January 21, 2021 TIME: 1:32 PM PAGER/CONTACT #: [phone] [id number] NoteHNO ID: [id number] Author: Derik Daniel Service: Care Management Author Type: Resource Center Crm Business Analyst Type: Care Mgt Progress Note Filed: 01/21/2021 11:24 AM Note Text: CARE MANAGEMENT PROGRESS NOTE SERVICE DATE: 01/21/2021 SERVICE TIME: 950 LOS: 4 days IMM Follow Up Copy Given: Yes Copy given to:: Patient Method: In Person SIGNATURE: Derik Sam Daniel PATIENT NAME: Aislinn Wheeler DATE: January 21, 2021 TIME: 11:23 AM PAGER/CONTACT #: [phone] [id number] NoteHNO ID: [id number] Author: Ailyn Salas RN Service: Care Management Author Type: Registered Nurse Type: Care Mgt Progress Note Filed: 01/20/2021 3:29 PM Note Text: CARE MANAGEMENT PROGRESS NOTE SERVICE DATE: 01/20/2021 SERVICE TIME: 3:09 PM LOS: 3 days [place] [facility] Choice Given: Yes Level of Care Discussed: Home Care Financial Disclosure Provided: No Financial Disclosure Comments: [facility] does not service area Provider List: [...] sent. Patient does not have a PCP. [facility] can provide a visiting [...] 20, 2021 TIME: 3:09 PM PAGER/CONTACT #: [phone] [id number] NoteHNO ID: [id number] Author: Inna Hansen DO Service: Hospital Medicine Author Type: Physician Type: Progress Notes Filed: 01/20/2021 12:37 PM Note Text: DEPARTMENT OF HOSPITAL MEDICINE PROGRESS NOTE SERVICE DATE: 01/20/2021 SERVICE TIME: 10:37 AM Hospital Medicine/Primary Attending: Inna Hansen DO NIGHT AND WEEKEND COVERAGE: DELMY COVERAGE: : [phone], please contact via InCytu Nights: [phone], please page CC Hospitalist Night coverage pager [phone] Subjective INTERVAL HPI: nausea and vomiting this [...] Non-Pharmacologic VTE Prophylaxis/Anticoagulants 01/17/212214 pneumatic compression stockings ([place]) 01/17/212214 activity - mobilize patient ([place] VTE Prophylaxis: VTE prophylaxis appropriate Disposition: [facility] Inna DO Tyrone January 20, 2021 10:39 [facility]Xlgjnwzu65-62-8447 NoteHNO ID: [id number] Author: Benjamin Bernal MD Service: Urology Author [...] Bernal MD January 19, 2021 4:12 [facility] HospitalYewsrsjj96-99-4679 NoteHNO ID: [id number] Author: Shelby Lucero PharmD Service: Pharmacy Author Type: Pharmacist Type: Plan of Care Filed: 01/19/2021 11:02 AM Note Text: PHARMACY MEDICATION REVIEW Patient Name: Aislinn Wheeler : 1960 The following medications were updated within the LABOR SERVICE REPRESENTATIVE medication list: Medications ADDED to LABOR SERVICE REPRESENTATIVE medication list ? Albuterol HFA (replaced nebs) ? Levemir (replaced Lantus) Medications CHANGED on LABOR SERVICE REPRESENTATIVE medication list ? Lyrica (added instructions) ? Symbicort (added instructions) Medications REMOVED from LABOR SERVICE REPRESENTATIVE medication list ? Diltiazem ? Cymbalta ? [...] nothing too big . Call placed to [facility] pharmacy to clarify prescribed dose of insulin, and the only prescription for insulin [facility] has on file is for Relion 70/30 inject 25 units BID. [facility] pharmacist states this was prescribed 02/19/2020 but never picked up. The below information represents the best possible medication history: Yes Medication history completed by: Pharmacist: Shelby Lucero PharmD Source of history: Patient: Reliability of source: Appears reliable, clearly identified: Medication name and Pharmacy records: [facility], [facility] pharmacy (phone call) Medication nonadherence identified: Unable to assess - it is clear the patient is noncompliant with her medications (admits she has been off her meds, no insulin fills at [facility] despite patient report), but at this time unable to assess reason for nonadherence. Reconciliation completed: Yes All LABOR SERVICE REPRESENTATIVE medications addressed by LIP and Medication reconciliation completed by: Shelby Lucero PharmD Medications with dose or frequency intentionally adjusted at admission: ? Lavinia modified to 5/325 mg q6h PRN New medications at admission: ? Ceftriaxone Note patient ordered insulin regimen (Lantus 15 units QHS + sliding scale Humalog) and based on blood glucose readings, this is appropriate Patient interested in Bedside Delivery Services or using [facility] OP Pharmacy at discharge? Unable to assess Preferred outpatient [facility]: [facility] [place] [address] - [address] - [phone] Allergies: Latex Rash Comment:Added based on information [...] as instructed twice daily. Shelby Lucero, PharmD 01/19/2021voHenry [facility] HospitalBifmeona31-88-8032 NoteHNO ID: [id number] Author: Inna Hansen DO Service: Hospital Medicine Author Type: Physician Type: Progress Notes Filed: 01/19/2021 2:24 PM Note Text: DEPARTMENT OF HOSPITAL MEDICINE PROGRESS NOTE SERVICE DATE: 01/19/2021 SERVICE TIME: 9:30 AM Hospital Medicine/Primary Attending: Inna Hansen DO NIGHT AND WEEKEND COVERAGE: DELMY COVERAGE: Days: [phone], please contact via InCytu Nights: [phone], please page CC Hospitalist Night coverage pager [phone] Subjective INTERVAL HPI: no overnight events. Denies [...] Non-Pharmacologic VTE Prophylaxis/Anticoagulants 01/17/212214 pneumatic compression stockings ([place] 01/17/212214 activity - mobilize patient ([place] VTE Prophylaxis: VTE prophylaxis appropriate Disposition: Home Discussed with granddaughter Lola by phone with patient's permission. Inna Hansen DO January 19, 2021 9:33 [facility] [id number] History of Past illness Narrative* Problem Noted Date Resolved Date Acute cystitis without hematuria 01/18/2021 01/21/2021 Pyelonephritis 01/17/2021 01/21/2021 Sepsis 01/17/2021 01/21/2021 Hyponatremia 01/17/2021 01/21/2021 Hyperkalemia 01/17/2021 01/21/2021 Hydronephrosis due to obstruction of ureter 12/2101/21/2021 documented as of this encounter (statuses as of 01/27/2021) [facility] History of Past illness Narrative* Problem Noted Date Diagnosed Date Resolved Date Acute cystitis without hematuria 01/18/2021 01/21/2021 Pyelonephritis 01/17/2021 01/21/2021 Sepsis 01/17/2021 01/21/2021 Hyponatremia 01/17/2021 01/21/2021 Hyperkalemia 01/17/2021 01/21/2021 Hydronephrosis due to obstruction of ureter 01/17/2021 01/21/2021 documented as of this encounter (statuses as of 06/09/2023) [facility] History of Past illness Narrative* Problem Noted Date Diagnosed Date Resolved Date Acute cystitis without hematuria 01/18/2021 01/21/2021 Pyelonephritis 01/17/2021 01/21/2021 Sepsis 01/17/2021 01/21/2021 Hyponatremia 01/17/2021 01/21/2021 Hyperkalemia 01/17/2021 01/21/2021 Hydronephrosis due to obstruction of ureter 01/17/2021 01/21/2021 documented as of this encounter (statuses as of 06/15/2023) [facility] History of Past illness Narrative* Problem Noted Date Diagnosed Date Resolved Date Acute cystitis without hematuria 01/18/2021 01/21/2021 Pyelonephritis 01/17/2021 01/21/2021 Sepsis 01/17/2021 01/21/2021 Hyponatremia 01/17/2021 01/21/2021 Hyperkalemia 01/17/2021 01/21/2021 Hydronephrosis due to obstruction of ureter 01/17/2021 01/21/2021 documented as of this encounter (statuses as of 06/19/2023) [facility] History of Past illness Narrative* Problem Noted Date Diagnosed Date Resolved Date Acute cystitis without hematuria 01/18/2021 01/21/2021 Pyelonephritis 01/17/2021 01/21/2021 Sepsis 01/17/2021 01/21/2021 Hyponatremia 01/17/2021 01/21/2021 Hyperkalemia 01/17/2021 01/21/2021 Hydronephrosis due to obstruction of ureter 01/17/2021 01/21/2021 documented as of this encounter (statuses as of 06/23/2023) [facility] History of Past illness Narrative* Problem Noted Date Diagnosed Date Resolved Date Acute cystitis without hematuria 01/18/2021 01/21/2021 Pyelonephritis 01/17/2021 01/21/2021 Sepsis 01/17/2021 01/21/2021 Hyponatremia 01/17/2021 01/21/2021 Hyperkalemia 01/17/2021 01/21/2021 Hydronephrosis due to obstruction of ureter 01/17/2021 01/21/2021 documented as of this encounter (statuses as of 07/05/2023) [facility] NoteHNO ID: [id number] Author: Inna Hansen DO Service: Hospital Medicine Author Type: Physician Type: Progress Notes Filed: 01/18/2021 4:10 PM Note Text: DEPARTMENT OF HOSPITAL MEDICINE PROGRESS NOTE SERVICE DATE: 01/18/2021 SERVICE TIME: 8:57 AM Hospital Medicine/Primary Attending: Inna Hansen DO NIGHT AND WEEKEND COVERAGE: DELMY COVERAGE: Days: [phone], please contact via igobubblesage Nights: [phone], please page CC Hospitalist Night coverage pager [phone] Subjective INTERVAL HPI: no overnight events. Denies [...] Non-Pharmacologic VTE Prophylaxis/Anticoagulants 01/17/212214 pneumatic compression stockings ([place]) 01/17/212214 activity - mobilize patient ([place]) VTE Prophylaxis: VTE prophylaxis appropriate Disposition: Home SIGNATURE: Inna Hansen DO PATIENT NAME: Aislinn Wheeler DATE: January 18, 2021 TIME: 8:57 [facility] [id number] NoteHNO ID: [id number] Author: Taurus Ballard MD Service: Urology Author [...] cause of her urinary retention. Taurus Ballard [facility] HospitalRleegsqb47-[facility]-1614 NoteHNO ID: [id number] Author: RT Dayanara(R) Service: Radiology Author Type: Cat Dog Or Other Pet Groomer Type: Progress Notes Filed: 01/17/2021 8:04 PM [...] BY: RT Dayanara(Raquel) January 17, 2021 8:03 [facility] HospitalEopyhelu86-98-1473 NoteHNO ID: [id number] Author: Antoinette Dudziak, RT(R) Service: Radiology Author Type: Cat Dog Or Other Pet Groomer Type: Progress Notes Filed: 01/17/2021 5:30 PM [...] PERIPHERAL IV DATA: Not applicable SIGNED BY: Antoinette Dailey RT(R) January 17, 2021 5:30 [facility] [id number] NoteHNO ID: [id number] Author: Guy Rogers RT(R) Service: Radiology Author Type: Cat Dog Or Other Pet Groomer Type: Progress Notes Filed: 01/17/2021 4:23 PM [...] RT (R) January 17, 2021 4:22 [facility] HospitalLzdemvkw06-11-3160 NoteHNO ID: [id number] Author: Wendy Rainey, CT Service: ? Author Type: Clinical Cat Dog Or Other Pet Groomer Type: Progress Notes Filed: 01/17/2021 4:19 PM [...] BY: AHSAN Dozier January 17, 2021 4:19 [facility] HospitalEvaluation + Plan note Future Appointments Appointment Date:12/13/2022 03:00:00 PM Scheduled Provider:HEIDY ARNOLD PA-C Location:[facility] Appointment Type:URO Office Visit [facility] evaluation + Plan note Future Appointments Appointment Date:10/26/2022 10:00:00 AM Scheduled Provider:Lisa Porras MD Location:[facility] Appointment Type:URO Office Visit Appointment Date:12/13/2022 03:00:00 PM Scheduled Provider:HEIDY ARNOLD PA-C Location:[facility] Appointment Type:URO Office Visit [facility] evaluation + Plan note Future Appointments Appointment Date:05/03/2023 10:00:00 AM Scheduled Provider:Lisa Porras MD Location:[facility] Appointment Type:URO Office Visit [facility] evaluation + Plan note Future Appointments Appointment Date:05/03/2023 10:00:00 AM Scheduled Provider:Lisa Porras MD Location:[facility] Appointment Type:URO Office Visit Diagnostic Tests Pending * [facility] Future Appointments Appointment Date:05/15/2023 12:30:00 PM Scheduled Provider: Location:[facility] Appointment Type:Urology CALL PAT FT Appointment Date:05/22/2023 10:30:00 AM Scheduled Provider: Location:[facility] Appointment Type:Urology FT Diagnostic Tests Pending * Urine Culture [facility] Future Appointments Appointment Date:06/28/2023 10:45:00 AM Scheduled Provider:Lisa Porras MD Location:[facility] Appointment Type:URO [facility] Future Appointments Appointment Date:06/28/2023 10:45:00 AM Scheduled Provider:Lisa Porras MD Location:[facility] Appointment Type:URO Office Visit Diagnostic Tests Pending * Urine Culture [facility]08[facility]23 [facility] Future Appointments Appointment Date:07/18/2023 11:20:00 AM Scheduled Provider:HEIDY ARNOLD PA-C Location:[facility] Appointment Type:URO Office Visit [facility] evaluation + Plan note Future Appointments Appointment Date:10/10/2023 11:40:00 AM Scheduled Provider:HEIDY ARNOLD PA-C Location:[facility] Appointment Type:URO Office Visit [facility] evaluation noteNo [facility] [employer] Other Evaluation note* Diagnosis Kidney cyst, acquired- Primary Acquired cyst of kidney documented in this encounter [facility]* Diagnosis Reflex sympathetic dystrophy of right upper extremity documented in this encounter [facility] noteNo assessment information available [facility] Work Phone: evaluation note* Diagnosis Reflex sympathetic dystrophy of right upper extremity Complex regional pain syndrome type 1 of right upper extremity documented in this encounter [facility]* Diagnosis Reflex sympathetic dystrophy of right upper extremity Complex regional pain syndrome type 1 of right upper extremity documented in this encounter [facility] note* Diagnosis Other hydronephrosis- Primary Screening for genitourinary condition Screening for other and unspecified genitourinary condition documented in this encounter [facility] note* Diagnosis Retention of urine- Primary Retention of urine, unspecified Screening for genitourinary condition Screening for other and unspecified genitourinary condition Type 2 diabetes mellitus with hyperglycemia, with long-term current use of insulin ([facility]) BURKE (stress urinary incontinence, female) Female stress incontinence documented in this encounter [facility] note* Diagnosis Lung nodule- Primary Solitary pulmonary nodule documented in this encounter [facility] note* Diagnosis Stress incontinence- Primary Female stress incontinence Dysfunctional voiding of urine Unspecified disorder of urethra and urinary tract documented in this encounter [facility] note* Diagnosis Preop examination- Primary Preoperative examination, unspecified Primary hypertension Unspecified essential hypertension Mild intermittent asthma without complication Unspecified asthma History of TIA (transient ischemic attack) Transient ischemic attack (TIA), and cerebral infarction without residual deficits MVP (mitral valve prolapse) Mitral valve disorders Iron deficiency anemia, unspecified iron deficiency anemia type Chronic pain due to trauma Neurogenic bladder Neurogenic bladder, NOS Stage 3a chronic kidney disease (HCC) Type 2 diabetes mellitus with hyperglycemia, with long-term current use of insulin (HCC) Neurogenic bladder- Primary Neurogenic bladder, NOS BURKE (stress urinary incontinence, female) Female stress incontinence documented in this encounter [facility] general Narrative - Reported* Type Description [...] SURGERY Hospitalization History DKA 2014 Hospitalization History [facility] 05/2022 [employer] Other History general Narrative - Reported* Type Description Date [...] SURGERY Hospitalization History DKA 2014 Hospitalization History [facility] 05/2022 [employer] Other Hospital course Narrative No data available for this section [facility] Hospital Discharge instructions No data available for this section [facility] InstructionsNot on filedocumented in this encounter [facility] SystemInstructionsNot on filedocumented in this encounter [facility] SystemProgress note No data available for this section [facility] reason for referral (narrative)* Diagnostic Procedure Only (Routine) - Pending Review Specialty Diagnoses / Procedures Referred By Danny hensley Referred To Contact [facility] Diagnoses Kidney cyst, acquired Procedures US KIDNEY/BLADDER US RETROPERITONEAL REAL TIME W/IMAGE COMPLETE Taurus Ballard MD [address] [place] [address] [place] [address] Referral ID Status Reason Start Date Expiration Date Visits Requested Visits Authorized [id number] Pending Review Auto-Generat ed Referral 10/05/2023 08/03/2024 1 1 [facility] for referral (narrative)* Outpatient Procedure (Routine) - New Request Specialty Diagnoses / Procedures Referred By Danny hensley Referred To Contact [facility] Diagnoses Retention of urine BURKE (stress urinary incontinence, female) Procedures FLUROURODYNAMICS WITH EMG EMG STDS ANAL/URTL SPHNCTR OTH/THN NDL Carmenza Nolen MD [address] [place] [address] [place] [address] Referral ID Status Reason Start Date Expiration Date Visits Requested Visits Authorized [id number] New Request Auto-Generat ed Referral 03/26/2024 03/26/2025 1 1 [facility] for visit NarrativeReferral Agusto Aysha, New pt Type 2 IDDM apt with [employer] 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 Other Summary Purpose Family History No Family [...] FoundDocuments on File Type Date Recorded Patient Spinner Concrete Pipe Expl anation Advance Directive(s) 01/17/2021 3:49 PM Reason for Referral Specialty Diagnoses / Procedures Referred By Danny hensley Referred To Contact CT IMAGING Diagnoses Other hydronephrosis Procedures CT UROGRAM WO/W IVCON CT ABD & PELVIS W/WO CONTRST 1+ BODY REGNS Taurus Ballard MD [address] [place] [address] [place] [address] Referral ID Status Reason Start Date Expiration Date Visits Requested Visits Authorized [id number] Pending Review Auto-Generat ed Referral 01/19/2024 02/10/2025 1 1 Referred by: Vern TAVERAS, Lisa Montiel Chief Complaint and Reason for Visit Chief Complaint Renal 4 Month Follow Up Additional Source Comments INFORMATION SOURCE (unrecogn ized section and content) DATE CREATED AUTHOR 01/23/2021 [facility] DATE CREATED AUTHOR AUTHOR'S ORGANIZ ATION 01/04/2023 [facility] DATE CREATED AUTHOR AUTHOR'S ORGANIZ ATION 10/19/2023 [facility] DATE CREATED AUTHOR AUTHOR'S ORGANIZ ATION 11/03/2023 [facility] Ir[facility] DATE CREATED AUTHOR AUTHOR'S ORGANIZ ATION 01/18/2024 [facility] DATE CREATED AUTHOR AUTHOR'S ORGANIZ ATION 03/05/2024 [facility] DATE CREATED AUTHOR AUTHOR'S ORGANIZ ATION 03/16/2024 [facility] DATE CREATED AUTHOR AUTHOR'S ORGANIZ ATION 04/02/2024 [facility] DATE CREATED AUTHOR AUTHOR'S ORGANIZ ATION 04/15/2024 [facility] Source Comments (unrecognize d section and content) In the event this informatio n is protected by the Federal Confidentiality of Alcohol and Drug Abuse Patient Records regulations: The Federal rules restrict any use of the information to criminally investigate or prosecute any alcohol or drug abuse patient.[facility] the event this information is protected by the Federal Confidentiality of Alcohol and Drug Abuse Patient Records regulations: The Federal rules restrict any use of the information to criminally investigate or prosecute any alcohol or drug abuse patient.[facility] Center[facility] the event this information is protected by the Federal Confidentiality of Alcohol and Drug Abuse Patient Records regulations: The Federal rules restrict any use of the information to criminally investigate or prosecute any alcohol or drug abuse patient.[facility] Center[facility] the event this information is protected by the Federal Confidentiality of Alcohol and Drug Abuse Patient Records regulations: The Federal rules restrict any use of the information to criminally investigate or prosecute any alcohol or drug abuse patient.[facility] CenterIn the event this information is protected by the Federal Confidentiality of Alcohol and Drug Abuse Patient Records regulations: The Federal rules restrict any use of the information to criminally investigate or prosecute any alcohol or drug abuse patient.[facility] CenterIn the event this information is protected by the Federal Confidentiality of Alcohol and Drug Abuse Patient Records regulations: The Federal rules restrict any use of the information to criminally investigate or prosecute any alcohol or drug abuse patient.[facility] CenterIn the event this information is protected by the Federal Confidentiality of Alcohol and Drug Abuse Patient Records regulations: The Federal rules restrict any use of the information to criminally investigate or prosecute any alcohol or drug abuse patient.[facility] CenterIn the event this information is protected by the Federal Confidentiality of Alcohol and Drug Abuse Patient Records regulations: The Federal rules restrict any use of the information to criminally investigate or prosecute any alcohol or drug abuse patient.[facility] CenterIn the event this information is protected by the Federal Confidentiality of Alcohol and Drug Abuse Patient Records regulations: The Federal rules restrict any use of the information to criminally investigate or prosecute any alcohol or drug abuse patient.[facility] CenterIn the event this information is protected by the Federal Confidentiality of Alcohol and Drug Abuse Patient Records regulations: The Federal rules restrict any use of the information to criminally investigate or prosecute any alcohol or drug abuse patient.[facility] CenterIn the event this information is protected by the Federal Confidentiality of Alcohol and Drug Abuse Patient Records regulations: The Federal rules restrict any use of the information to criminally investigate or prosecute any alcohol or drug abuse patient.[facility] CenterIn the event this information is protected by the Federal Confidentiality of Alcohol and Drug Abuse Patient Records regulations: The Federal rules restrict any use of the information to criminally investigate or prosecute any alcohol or drug abuse patient.[facility] CenterIn the event this information is protected by the Federal Confidentiality of Alcohol and Drug Abuse Patient Records regulations: The Federal rules restrict any use of the information to criminally investigate or prosecute any alcohol or drug abuse patient.[facility] CenterIn the event this information is protected by the Federal Confidentiality of Alcohol and Drug Abuse Patient Records regulations: The Federal rules restrict any use of the information to criminally investigate or prosecute any alcohol or drug abuse patient.[facility] CenterIn the event this information is protected by the Federal Confidentiality of Alcohol and Drug Abuse Patient Records regulations: The Federal rules restrict any use of the information to criminally investigate or prosecute any alcohol or drug abuse patient.[facility] CenterIn the event this information is protected by the Federal Confidentiality of Alcohol and Drug Abuse Patient Records regulations: The Federal rules restrict any use of the information to criminally investigate or prosecute any alcohol or drug abuse patient.[facility] CenterIn the event this information is protected by the Federal Confidentiality of Alcohol and Drug Abuse Patient Records regulations: The Federal rules restrict any use of the information to criminally investigate or prosecute any alcohol or drug abuse patient.[facility] CenterIn the event this information is protected by the Federal Confidentiality of Alcohol and Drug Abuse Patient Records regulations: The Federal rules restrict any use of the information to criminally investigate or prosecute any alcohol or drug abuse patient.[facility] Reason for Visit (unrecogniz ed section and content) Reason Comments Appointment Reason Comments Follow Up Reason Comments Pre-Op Teaching Reason Comments Surgical Followup Reason Onset Date Comments Med Refill 09/07/2023 Reason Onset Date Comments Research F/U 09/26/2023 Reason Onset Date Comments Research F/U 09/27/2023 Reason Onset Date Comments Med Refill 10/10/2023 Reason Onset Date Comments Med Refill 11/06/2023 Reason Comments Established Patient Reason Comments Results - Ct Reason Comments Consult Established Patient Pt c/o UNCONTROLLED leakage - STOP ICS X2 [id number] Patient Care team informatio n (unrecognized section and content) Supervisor Residential Relationship Specialty Start Date End Date Agusto Olmstead [address] [place] [address] PCP - General 05/17/23 Lisa Porras MD [address] [place] [address] Referring Urology 05/11/23 Supervisor Residential Relationship Specialty Start Date End Date Agusto Olmstead [address] [place], [place] [address] [address] PCP - General 05/17/23 Lisa Porras MD [address] [place] [address] Referring Urology 05/11/23 Supervisor Residential Relationship Specialty Start Date End Date RicAgusto casillas [address] [place], [place] [address] [address] PCP - General 05/17/23 Lisa Porras MD [address] [place] [address] Referring Urology 05/11/23 Supervisor Residential Relationship Specialty Start Date End Date Agusto Olmstead [address] [place] [address] PCP - General 05/17/23 Lisa Porras MD [address] [place] [address] Referring Urology 05/11/23 Supervisor Residential Relationship Specialty Start Date End Date Agusto Olmstead BLACK TOP MACHINE OPERATOR-COLLECTION CARD CLERK [address] [place] [address] PCP - General Nurse Practitioner 11/10/22 Supervisor Residential Relationship Specialty Start Date End Date Agusto Olmstead [address] [place] [address] PCP - General 05/17/23 Lisa Porras MD [address] [place] [address] Referring Urology 05/11/23 Supervisor Residential Relationship Specialty Start Date End Date Agusto Olmstead [address] [place] [address] PCP - General 05/17/23 Lisa Porras MD [address] [place] [address] Referring Urology 05/11/23 Team Status: Active Member Role Status Dates Sumi Lentz APRN [employer] Primary Care Provider Active Team Status: Inactive Member Role Status Dates Eli Sprague MD Attending Provider Active Star t: August 01, 2023 End: August 01, 2023 Supervisor Residential Relationship Specialty Start Date End Date Agusto Olmstead BLACK TOP MACHINE OPERATOR-COLLECTION CARD CLERK [address] [place] [address] PCP - General Nurse Practitioner 11/10/22 Supervisor Residential Relationship Specialty Start Date End Date RicAgusto weston BLACK TOP MACHINE OPERATOR[facility] [address] [place] [address] PCP - General Nurse Practitioner 11/10/22 Supervisor Residential Relationship Specialty Start Date End Date Agusto Olmstead [address] [place] [address] PCP - General 05/17/23 Lisa Porras MD [address] [place] [address] Referring Urology 05/11/23 RicapurvaanilaAgusto harris [address] [place] [address] Referring 01/04/24 Supervisor Residential Relationship Specialty Start Date End Date Agusto Olmstead [address] [place] [address] PCP - General 05/17/23 Lisa Porras MD [address] [place] [address] Referring Urology 05/11/23 Agusto Olmstead [address] [place] [address] Referring 01/04/24 Supervisor Residential Relationship Specialty Start Date End Date Agusto Olmstead [address] [place] [address] PCP - General 05/17/23 Lisa Porras MD [address] [place] [address] Referring Urology 05/11/23 [place] [address] Referring 01/04/24 Supervisor Residential Relationship Specialty Start Date End Date Agusto Olmstead [address] [place] [address] PCP - General 05/17/23 Lisa Porras MD [address] [place] [address] Referring Urology 05/11/23 Agusto Olmstead [address] [place] [address] Referring 01/04/24 Supervisor Residential Relationship Specialty Start Date End Date Agusto Olmstead [address] [place] [address] PCP - General 05/17/23 Lisa Porras MD [address] [place] [address] Referring Urology 05/11/23 Agusto Olmstead [address] [place] [address] Referring 01/04/24 Supervisor Residential Relationship Specialty Start Date End Date Agusto Olmstead [address] [place] [address] PCP - General 05/17/23 Lisa Porras MD [address] [place] [address] Referring Urology 05/11/23 Agusto Olmstead [address] [place] [address] Referring 01/04/24 Supervisor Residential Relationship Specialty Start Date End Date Agusto Olmstead [address] [place] [address] PCP - General 05/17/23 Lisa Porras MD [address] [place] [address] Referring Urology 05/11/[address] [place] [address] Referring 01/04/24 Supervisor Residential Relationship Specialty Start Date End Date Agusto Olmstead [address] [place] [address] PCP - General 05/17/23 Lisa Porras MD [address] [place] [address] Referring Urology 05/11/23 Agusto Olmstead [address] [place] [address] Referring 01/04/24 Goals (unrecognized section and content) Goals may [...] BE BASED ON THE PRIMARY CLINICAL RECORDS. [employer] [facility]. provides no warranty or guarantee of the accuracy or completeness of information in this document.
== END 2024-04-17 10:03 | disposition home or self-care (01) ==
LOC: MAMMO 10:03
PROVIDERS: PCP Nurse Practitioner; Visit Provider Nurse Practitioner
DX: Z12.31 Encounter for screening mammogram for malignant neoplasm of breast (principal); R05.3 Chronic cough; Z80.41 Family history of malignant neoplasm of ovary; Z80.51 Family history of malignant neoplasm of kidney; Z80.8 Family history of malignant neoplasm of other organs or systems
CPT/HCPCS: 71046; 77063; 77067

== ENCOUNTER 2024-04-25 22:37 | Inpatient (IN) | payer MEDICARE, SELFPAY ==
--- OUTSIDE RECORDS SUMMARY | 2024-04-25 22:47 | XMS_ITS | CCD ---
Author Organization [facility] Care Team Providers Care Welfare Worker Name Role Phone Pcp, No Primary Care Provider Unavailisidra e AGUSTO OLMSTEAD Primary Care Physician [phone] Eli Sprague Unavailable MARIBEL BEAUTY COUNSELOR AGUSTO Attending Unavailable AICHHOLZ, BEAUTY COUNSELOR AGUSTO Consulting Unavailable AICHHOLZ, BEAUTY COUNSELOR AGUSTO Admitting Unavailable AICHHOLZ, BEAUTY COUNSELOR AGUSTO Primary Care Unavailable RAMON HUNTLEY Attending Unavailable RAMON HUNTLEY Admitting Unavailable REQUEST, DR PANDEY LISTED Primary Care Unavaila georgi DELVALLE, DR THANH García Consulting Unavailable RAMON HUNTLEY Consulting Unavailable RICHHOLZ, BEAUTY COUNSELOR AGUSTO Primary Care Unavailable RAMON HUNTLEY Admitting Unavailable RAMON HUNTLEY Attending Unavailable AICHHOLZ, BEAUTY COUNSELOR AGUSTO Primary Care Unavailable FAWWAD, AMADO H Consulting Unavailable FAWWAD, AMADO H Admitting Unavailable FAWWAD, AMADO H Attending Unavailable AICHHOLZ, BEAUTY COUNSELOR AGUSTO Consulting Unavailable AICHHOLZ, BEAUTY COUNSELOR AGUSTO Admitting Unavailable AICHHOLZ, BEAUTY COUNSELOR AGUSTO Attending Unavailable AICHHOLZ, BEAUTY COUNSELOR AGUSTO Primary Care Unavailable RAMON HUNTLEY Attending Unavailable AICHHOLZ, BEAUTY COUNSELOR AGUSTO Primary Care Unavailable RAMON HUNTLEY Admitting Unavailable BHARAT, DR NUBIA Carlos Consulting Unavailable RAMON HUNTLEY Consulting Unavailable RICHHOLZ, BEAUTY COUNSELOR AGUSTO Primary Care Unavailable BHARAT, DR NUBIA Carlos Consulting Unavailable CAMMIE SEGURA Admitting Unavailable CAMMIE SEGURA Attending Unavailable CAMMIE SEGURA Consulting Unavailable AICHHOLZ, BEAUTY COUNSELOR AGUSTO Primary Care Unavailable AICHHOLZ, BEAUTY COUNSELOR AGUSTO Attending Unavailable AICHHOLZ, BEAUTY COUNSELOR AGUSTO Admitting Unavailable WEST, DR NUBIA Carlos Consulting Unavailable AICHHOLZ, BEAUTY COUNSELOR AGUSTO Consulting Unavailable AICHHOLZ, BEAUTY COUNSELOR AGUSTO Primary Care Unavailable COLTON, CAMMIE Admitting Unavailable COLTON, CAMMIE Attending Unavailable COLTON, CAMMIE Consulting Unavailable AICHHOLZ, BEAUTY COUNSELOR AGUSTO Primary Care Unavailable AICHHOLZ, BEAUTY COUNSELOR AGUSTO Attending Unavailable AICHHOLZ, BEAUTY COUNSELOR AGUSTO Consulting Unavailable AICHHOLZ, BEAUTY COUNSELOR AGUSTO Admitting Unavailable AICHHOLZ, BEAUTY COUNSELOR AGUSTO Primary Care Unavailable WEST, DR NUBIA Carlos Consulting Unavailable COLTON, CAMMIE Admitting Unavailable COLTON, CAMMIE Attending Unavailable COLTON, CAMMIE Consulting Unavailable AICHHOLZ, BEAUTY COUNSELOR AGUSTO Primary Care Unavailable ZIEBER, DR THANH García Consulting Unavailable HIGHLANDER, RAMON Tillman Attending Unavailable HIGHLANDER, RAMON Tillman Admitting Unavailable HIGHLANDERRAMON Consulting Unavailable AICHHOLZ, BEAUTY COUNSELOR AGUSTO Primary Care Unavailable FOSTER ., DR PAGE Admitting Unavailable FOSTER ., DR PAGE Attending Unavailable FOSTER ., DR PAGE Consulting Unavailable ZIEBER, DR THANH García Consulting Unavailable WILLYANDER, PETER Primo Admitting Unavailable AICHHOLZ, BEAUTY COUNSELOR AGUSTO Primary Care Unavailable ZIEBER, DR THANH García Consulting Unavailable HIGHLANDER, PETER Primo Attending Unavailable HIGHLANDER PETER Primo Consulting Unavailable AICHHOLZ, BEAUTY COUNSELOR AGUSTO Primary Care Unavailable AICHHOLZ, BEAUTY COUNSELOR AGUSTO Attending Unavailable AICHHOLZ, BEAUTY COUNSELOR AGUSTO Consulting Unavailable AICHHOLZ, BEAUTY COUNSELOR AGUSTO Admitting Unavailable ZIEBER, DR THANH García Consulting Unavailable AICHHOLZ, BEAUTY COUNSELOR AGUSTO Primary Care Unavailable ZIEBER, DR THANH García Consulting Unavailable HIGHLANDER, RAMON Tillman Attending Unavailable HIGHLANDER PETER D Admitting Unavailable HIGHLANDERRAMON Consulting Unavailable AICHHOLZ, BEAUTY COUNSELOR AGUSTO Primary Care Unavailable ZIEBER, DR THANH García Consulting Unavailable COLTON, CAMMIE Admitting Unavailable COLTON, CAMMIE Attending Unavailable COLTON, CAMMIE Consulting Unavailable RAQUEL DERAS Admitting Unavailable RAQUEL DERAS Attending Unavailable KASIE CANDELARIO Consulting Unavailable REQUEST, DR PANDEY LISTED Primary Care Unavaila ble WANDY .RAQUEL Consulting Unavailable LYLE MATIAS Consulting Unavailable AICHHOLZ, BEAUTY COUNSELOR AGUSTO Primary Care Unavailable EARL ., DR CARMONA Admitting Unavailable EARL ., DR CARMONA Attending Unavailable EARL ., DR CARMONA Consulting Unavailable TONY LUO Consulting Unavailable NUBIA BATEMAN Consulting Unavailable AICHHOLZ, BEAUTY COUNSELOR AGUSTO Primary Care Unavailable HIGHLANDER, RAMON Tillman Admitting Unavailable HIGHLANDER, RAMON Tillman Attending Unavailable HIGHLANDER, RAMON Tillman Admitting Unavailable AICHHOLZ, BEAUTY COUNSELOR AGUSTO Primary Care Unavailable HIGHLANDER, RAMON Tillman Attending Unavailable HIGHLANDER, PETER D Admitting Unavailable AICHHOLZ, BEAUTY COUNSELOR AGUSTO Primary Care Unavailable ZIEBER, DR THANH García Consulting Unavailable HIGHLANDER, RAMON Tillman Attending Unavailable HIGHLANDER, RAMON Tillman Consulting Unavailable HIGHLANDER, RAMON Tillman Admitting Unavailable AICHHOLZ, BEAUTY COUNSELOR AGUSTO Primary Care Unavailable HIGHLANDER, RAMON Tillman Attending Unavailable HIGHLANDER, RAMON Tillman Attending Unavailable HIGHLANDER, PETER D Admitting Unavailable REQUEST, NONE LISTED Primary Care Unavaila ble HIGHLANDER, RAMON D Admitting Unavailable AICHHOLZ, BEAUTY COUNSELOR AGUSTO Primary Care Unavailable HIGHLANDER, RAMON Tillman Attending Unavailable HIGHLANDER, RAMON D Admitting Unavailable AICHHOLZ, BEAUTY COUNSELOR AGUSTO Primary Care Unavailable HIGHLANDER, RAMON Tillman Attending Unavailable HIGHLANDER, RAMON Tillman Attending Unavailable HIGHLANDER, PETER D Admitting Unavailable REQUEST, NONE LISTED Primary Care Unavaila georgi PALMA, DR NELL Alvarez Attending Unavailabl e ADELIA, DR THANH García Consulting Unavailable REQUEST, NONE LISTED Primary Care Unavaila georgi PALMA, DR NELL Alvarez Admitting Unavailabl e GRECHNY ., GIANNI PETIT [...] Unavailable SMALLWOOD, REJI FLORES Consulting Unavailable AICHHOLZ, BEAUTY COUNSELOR AGUSTO Primary Care Unavailable WEST, DR NUBIA Carlos Consulting Unavailable CAMMIE SEGURA Admitting Unavailable CAMMIE SEGURA Attending Unavailable CAMMIE SEGURA Consulting Unavailable HIGHLANDER, RAMON Tillman Admitting Unavailable AICHHOLZ, BEAUTY COUNSELOR AGUSTO Primary Care Unavailable ZIIMTIAZ, DR THANH García Consulting Unavailable WILLYANDER, RAMON Tillman Attending Unavailable HIGHLANDER, RAMON Tillman Consulting Unavailable Fitayden Brigette Unavailable Mapus, Tondra Unavailable Vern TAVERAS, Lisa M Unavailable Agusto Olmstead Primary Care Provider Agusto Lamb Primary Care Provider Vern TAVERAS, Lisa M Unavailable Sumi Lentz Primary Care Unavailable Agusto Olmstead Attending Unavailable Agusto Olmstead Admitting Unavailable Lue, Lisa M. Referring Unavailable Lue, Lisa M. Admitting Unavailable Lue, Lisa M. Attending Unavailable CATALINAPROMISE CURIEL Attending Unavailab le CATALINA, PROMISE Rodriguez Admitting Unavailab le CATALINA, PROMISE Rodriguez Attending Unavailab le CATALINA, PROMISE Rodriguez Admitting Unavailab le CATALINA, PROMISE Rodriguez Attending Unavailab le CATALINA, PROMISE Rodriguez Admitting Unavailab le CATALINA, PROMISE Rodriguez Attending Unavailab le CATALINA, PROMISE Rodriguez Attending Unavailab le LueLisa MIrina Attending Unavailable Lue, Lisa MIrina Attending Unavailable Lue, Lisa MIrina Attending Unavailable PROMISE ARNOLD Attending Unavailab le RICHAGUSTO CASILLAS Attending Unavailable CATALINAPROMISE CURIEL Attending Unavailab le LueLisa MIrina Referring Unavailable Lue, Lisa M. Attending Unavailable PROMISE ARNOLD Attending Unavailab AGUSTO Limon Attending Unavailable Agusto Olmstead Primary Care Provider Agusto Olmstead Unavailable ABOSUSANNE, TAURUS Attending Unavailable ABOUASSALY, TAURUS Attending Unavailable ABOUASSALY, TAURUS Attending Unavailable ABOUASSALY, TAURUS Admitting Unavailable Agusto Olmstead Primary Care Provider Unavailabl e Agusto Olmstead Unavailable Unavailable ABOUASSALY, TAURUS Referring Unavailable ABOUASSALY, TAURUS Referring Unavailable ABOUASSALYTAURUS Referring Unavailable SLOPNICKCARMENZA Attending Unavailable SLOPNICKCARMENZA Attending Unavailable RICHHOLZ, AGUSTO Attending Unavailable AICHHOLZ, AGUSTO Attending Unavailable AICHHOLZ, AGUSTO Attending Unavailable AICHHOLZ, AGUSTO Attending Unavailable AICHHOLZ, AGUSTO Attending Unavailable SWETA LI Attending Unavailable AICHHOLZ, AGUSTO J Referring Unavailable AICHHOLZ, AGUSTO J Primary Care Unavailable SWETA LI Attending Unavailable AICHHOLZ, AGUSTO J Referring Unavailable AICHHOLZ, AGUSTO J Primary Care Unavailable RUTH, ZACKERY E Admitting Unavailable PEDRO, ZACKERY E Attending Unavailable AICHHOLZ, AGUSTO J Referring Unavailable AICHHOLZ, AGUSTO J Primary Care Unavailable PEDRO, ZACKERY E Attending Unavailable PEDRO, ZACKERY E Referring Unavailable AICHHOLZ, AGUSTO J Primary Care Unavailable JYOTHI SHELTON Attending Unavailable AICHHOLZ, AGUSTO J Primary Care Unavailable SWETA LI Attending Unavailable AICHHOLZ, AGUSTO J Referring Unavailable AICHHOLZ, AGUSTO J Primary Care Unavailable SWETA LI N Referring Unavailable AICHHOLZ, AGUSTO J Primary Care Unavailable PEDRO, ZACKERY E Admitting Unavailable PEDRO, ZACKERY E Attending Unavailable AICHHOLZ, AGUSTO J Referring Unavailable AICHHOLZ, AGUSTO J Primary Care Unavailable PEDRO, ZACKERY E Attending Unavailable PEDRO, ZACKERY E Referring Unavailable AICHHOLZ, AGUSTO J Primary Care Unavailable PEDRO, ZACKERY E Admitting Unavailable PEDRO, ZAKCERY E Attending Unavailable PEDRO, ZACKERY E Referring Unavailable AICHHOLZ, AGUSTO J Primary Care Unavailable RUTH, ZACKERY E Attending Unavailable PEDRO, ZACKERY E Referring Unavailable AICHHOLZ, AGUSTO J Primary Care Unavailable KATEY DIAMOND Attending Unavailable AICHHOLZ, AGUSTO J Primary Care Unavailable SWETA LI Attending Unavailable AICHHOLZ, AGUSTO J Referring Unavailable AICHHOLZ, AGUSTO J Primary Care Unavailable Allergies Allergy Classification Reported Allergen(s) Allergy Type Date of Onset Reaction(s) Facility Latex (2 sources) Latex Substance Allergy 0 Rash [facility] (20 sources) Latex; Translations: [Latex] Allergy to substance 0 Eruption of skin (disorder), Rash [facility] Medications Current Medications Medication Drug Class(es) [...] above: Take 2 tablets by mo [facility] every 6 hours as needed for pain. [...] rain th three times daily as needed. [id number] 200 actuat albuterol 0.09 mg/actuat metered dose [...] breath. AMBULATORY COMPOUNDED MEDICATION (3 sources) Start: AMBULATORY COMPOUNDED MEDICATION Apply 120 g topically [...] by rain once daily for 3 days. 1 ml [...] on above: Take 1 capsule by mo ut two times a day. estradiol 0.1 mg/ml vaginal cream (7 sources) Estrogen Start: 05-03-2023 Estrace 0.1 mg /g Cream See Instructions, 42.5 gm, Refill(s) 3, apply pea size amount to urethra/inner vagina 3x/week x 1 month, then 2x/week for maintainence, [facility], 153, cm, 05/03/23 9:52:00 EDT, Height/Length [...] day(s), # 30 tab(s), Refills(s) 6, Pharmacy: [facility], 153, cm, 09/21/22 8:48:00 EST, Height/Length [...] day(s), # 30 tab(s), Refills(s) 6, Pharmacy: [facility], 153, cm, 09/13/22 13:38:00 EST, Height/Length [...] three times daily. Take 1 capsule by [facility] two times a day for 30 days. [...] Daily, # 30 tab(s), Refills(s) 11, Pharmacy: [facility], 153, cm, 02/22/23 8:55:00 EDT, Height/Length [...] sources) Long-term current use of insulin; Translations: [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 project manager (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] Episodic Other aftercare (3 sources) penitentiary (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; Translations: [MGMT SPECIALIST CURRENT USE OF INSULIN] Onset: 08-09-2022 Episodic [...] 05-16-2022 Episodic Other aftercare (1 source) Other long chain beamer (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; Translations: [OTH MGMT SPECIALIST CURRENT DRUG THERAPY] Onset: 08-09-2022 Episodic Other aftercare (3 sources) Admission statuses; Translations: [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 project manager (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 of opiate analgesic] Onset: 03-15-2022 03-15-2022 Episodic Other aftercare (1 source) penitentiary (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 of opiate analgesic; Translations: [penitentiary (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 of opiate analgesic] Onset: 03-15-2022 [...] IN RIGHT FOOT] Onset: 06-02-2022 Episodic Other connective tissue disease (1 source) Pain in upper limb Onset: 01-24-2024 Episodic Other diseases of kidney and ureters [...] Test Name Value Interpretation Reference Range Facility [facility] 03-29-2024 CNNURSE Nurse Visit (UROSMN) AISLINN WHEELER ([id number]) 1960 F Date Time Provider Department 03/29/24 3:00 PM FLUROURODYNAMICS UROSMN During your visit today, we recorded the following information about you: Lorie Burrows RN 03/29/2024 2:18 PM Addendum [facility] URODYNAMICS LAB URODYNAMIC [...] allergy: No Females- Is patient : No Supply Chain Design Manager offered:Patient declines B/O UA: Yes, Negative for [...] Carmenza Nolen MD 04/02/2024 11:52 AM Addendum [facility] FOR [facility] [...] bladder with poor compliance and BURKE at DETENTION of 100ml. Bladder remodeling without VUR. Valsalva voiding with atonic detrusor. Will refer to consider bladder augmentation. Carmenza Nolen MD Voiding cystourethrogram- Voiding Cystourethrogram Patient Name - Aislinn Wheeler Date - April 02, 2024 Imaging exam - VCUG Number of images saved - 11 Patient position - Sitting Radiologic Findings: A lead injection mold technician radiograph was obtained. The bony and soft tissue structures are within normal. 147 ccs contrast were used to fill the bladder. The bladder outline is irregular/trabeculated and abnormal shaped appearing. There is no ureteral reflux. During the voiding phase there is abnormal bladder neck opening and urethra is not visualized. Bladder emptying is not visualized Read (more content not included)... Normal [facility] CNOVon 03-26-2024 CNOV Office Visit (UROLAV ) AISLINN WHEELER ([id number]) 1960 F Date Time Provider Department 03/26/24 11:00 AM CARMENZA NOLEN UROSALINAS During your visit today, we recorded the [...] Carmenza Nolen MD 03/26/2024 11:54 AM Signed [facility] PELVIC MEDICINE [...] her bladder. Had bladder botox injections at [facility] about 3 mo ago with no [...] Assessed 03/26/2024 PHYSICAL EXAM: Patient declined a brick washer General: No acute distress, well appearing : [...] Signed INFOR (more content not included)... Normal [facility] UA DIP, URINE (POC)on 2023 BILIRUBIN UA (POCT) Negative Negative [facility] CLARITY UA (POCT) [facility] COLOR UA (POCT) Light yellow [facility] [place] GLUCOSE UA (POCT) Negative Negative mg/dL [facility] Hemoglobin Ql (U) Trace-intact Abnormal Negative [facility] Interpretation and review of laboratory results Abnormal [facility] KETONE UA (POCT) Negative Negative mg/dL [facility] LEUKOCYTES UA (POCT) Moderate Abnormal Negative [facility] NITRITE UA (POCT) Negative Negative [facility] [place] PH UA (POCT) 6.0 4.5 - 8.0 [facility] Protein Ql (U) 100 mg/dL Abnormal Negative [facility] SPECIFIC GRAVITY UA (POCT) 1.020 1.005 - 1.030 [facility] UROBILINOGEN UA (POCT) 0.2 Normal E.U./dL [facility] Location:[facility], [address] [place], [place], [id number] [place] [address] POINT OF CARE [facility] Glucose Glucometer (BldC) [M ass/Vol]on 03-15-2024 Glucose [Mass/Vol] 164 mg/dL High 65-99 [facility] CNPOlivia 02-26-2024 CNPN Telephone (URFHR) AISLINN WHEELER ([id number]) 1960 F Date Time Provider Department 02/26/24 [...] Encounter Status:Closed by FLAVIO COON [facility]) LIAMAISLINN M ([id number]) 1960 F Date Time Provider Department 02/12/24 VONNIE WILDER During your visit today, we [...] Encounter Status:Closed by VONNIE WILDER on 02/12/24 [facility] CREATININE Don 02-01-2024 Creatinine [Mass/Vol] 1.78 mg/dL High 0.58-0.96 [facility] Comment on above: Order Comment: Speci men Type: BLOOD SPECIMENOrdering Facility: [facility] Address: [address] [place] [address] Performed By: #### C RET1 ####[facility] LABCLIA [id number] [place] [address] Creatinine and Glomerular filtration rate.predicted panel (S/P/Bld) 31 mL/min/1.73m??? Low >=60 [facility] Comment on above: Order Comment: Speci men Type: BLOOD SPECIMENOrdering Facility: [facility] Address: [address] [place] [address] Result Comment: Donna mated Glomerular Filtration Rate [...] actual GFR. Performed By: #### C RET1 ####[facility] LABCLIA [id number] [place] [address] CT UROGRAM WO/W IVCONon 06- CT UROGRAM WO/W IVCON * * *Final Report* * * DATE OF EXAM: Feb 01 2024 3:26PM [facility] 0560 - CT UROGRAM WO/W IVCON / [...] be communicated with the ordering provider via [employer] (air [employer]) staff message or phone message by Imaging [...] any questions regarding this interpretation, please call [phone]. If you are unable to reach us at the number above, please feel free to contact [facility] eRadiology at [phone]. [id number] ACTIONABLE Invalid Interpretation Code [facility] CNOVon 01-12-2024 CNOV Office Visit (URFMOB ) AISLINN WHEELER ([id number]) 1960 F Date Time Provider Department 01/12/24 1:50 PM TAURUS BALLARD During your visit today, we recorded the following information about you: Pulse Blood pressure 75/minute 142/69 Taurus Ballard MD 01/12/2024 2:43 PM Signed [facility] FOLLOW-UP PATIENT HISTORY AND PHYSICAL [...] urogram Will refer to Dr. Tamanna Ruiz APRN.BEAUTY COUNSELOR Attending Note I have personally performed a [...] her ki (more content not included)... Normal [facility] UA DIP, URINE (POC)on 2023 BILIRUBIN UA (POCT) Negative Negative [facility] CLARITY UA (POCT) [facility] COLOR UA (POCT) Yellow [facility] GLUCOSE UA (POCT) 100 mg/dL Abnormal Negative [facility] Hemoglobin Ql (U) Trace-intact Abnormal Negative [facility] Interpretation and review of laboratory results Abnormal [facility] KETONE UA (POCT) Negative Negative mg/dL [facility] LEUKOCYTES UA (POCT) Small Abnormal Negative [facility] NITRITE UA (POCT) Negative Negative [facility] PH UA (POCT) 5.5 4.5 - 8.0 [facility] Protein Ql (U) 100 mg/dL Abnormal Negative [facility] SPECIFIC GRAVITY UA (POCT) 1.015 1.005 - 1.030 [facility] UROBILINOGEN UA (POCT) 0.2 Normal E.U./dL [facility] Location:[facility] [place], [place], [address] [address] POINT OF CARE [facility] ED Note-Physicianon 10-30-19 24 ED Note-Physician [id number]#1.00 TIFF Normal [facility] Lab Reportson 10-30-2023 Lab Reports [id number]#1.00T IFF Normal [facility] Lab Reports [id number]#1.00T IFF Normal [facility] Urology Office/Clinic Noteon 10-26-2023 Urology Office/Clinic Note Chief Complaint S/P to Cysto with Botox HPI Staff KML pt. Here for f/u to Botox 100u done 05/22/23. R/s'd appt from 06/28/23. Previous dx: renal cyst, mixed incontinence, feeling of incomplete bladder emptying, glucosuria. Pt was referred to Dr. Ballard at [facility] for evaluation of robotic left cyst [...] Assessment/Plan 1. Mixed incontinence (N39.46: Mixed incontinence) RAG GRADER Aug 2022 c/o UUI>BURKE incontinence, worsening. BURKE [...] procedure. This is confusing bc review of [facility]'s op report shows completely normal events (lidocaine instilled normally, 10 injections of 2ml each) so it's unclear if pt received full 100units or not. Pt called 06/08/23 c/o worsening leakage after Botox. PVR was 174 cc (compared to 142cc prior to botox). KML recommended to start CIC 3x/day for residual, timed voids q2hr, and tight DM control. Pt was in [facility] 06/19 and treated for E [...] kidney measuri (more content not included)... Normal [facility] Comment on above: Result Comment: Elec [...] Appointments Follow Up with HEIDY ARNOLD PA-C, URL When: Where: [address] [place] [address] Medications What How Much When Instructions Unchanged [...] including vitamins, herbs, eye drops, creams, and ygzn-xog-ajkfpbj medicines. ? Any problems you or family [...] Do no (more content not included)... Normal [facility] Patient Educationon 10-25-19 Patient Education Urology Botulinum [...] including vitamins, herbs, eye drops, creams, and ounj-zjy-igtdcnh medicines. ? Any problems you or family [...] tells you to take them. ? Taking srvn-rct-ddptpbk medicines, vitamins, herbs, and supplements. General instructions [...] these instructions at home: Medicines ? Take kpcr-omk-njwdmrs and prescription medicines only as told by [...] health ca (more content not included)... Normal [facility] Glucose Glucometer (BldC) [M ass/Vol]on 10-13-2023 Glucose [Mass/Vol] 276 mg/dL High 65-99 [facility] Glucose Glucometer (BldC) [M ass/Vol]on 09-29-2023 Glucose [Mass/Vol] 356 mg/dL High 65-99 [facility] CNPNon 09-27-2023 CNPN Telephone (FVPRAD) AISLINN WHEELER ([id number]) 1960 F Date Time Provider Department 09/27/23 DREW BUCKNER FVJEFFRYD During your visit today, we recorded the following information about you: Drew Bcukner, Research Coordinator 09/27/2023 2:33 PM Signed IRB# [id number]: Vascular events in patients undergoing same-day nonCardiac surgery - [facility] PI: Mary Rojas MD, LETY, FASA. Outcomes Research Department. Anesthesia [place]. [facility]. Aislinn Wheeler was unavailable at the listed phone number. We will attempt to contact the patient through Exitround message. Drew Esqueda Research Coordinator Research Coordinator Allergies As of Date: 09/27/2023 Noted Allergy Reaction LATEX 02/05/2020 2 - Rash Comments: Added based on information entered during case entry, please review and add reactions, type, and severity as needed Date Reviewed: 09/03/2023 Reviewed by: Chuck Kirk RN - Fully Assessed Reason for Visit: Research F/U [568] Prescriptions as of 09/27/2023 - pregabalin (LYRICA) [...] Encounter Status:Closed by DREW BUCKNER on 09/27/23 [facility] 09-26-2023 [facility] Telephone (FVPRAD) AISLINN WHEELER ([id number]) 1960 F Date Time Provider Department 09/26/23 DREW BUCKNER FVPRAD During your visit today, we recorded the following information about you: Drew Buckner, Research Coordinator 09/26/2023 3:32 PM Signed IRB# [id number]: Vascular events in patients undergoing same-day nonCardiac surgery - [facility] PI: Mary Rojas MD, LETY, FASA. Outcomes Research Department. Anesthesia [place]. [facility]. Aislinn Wheeler was unavailable at the listed [...] Fully Assessed Reason for Visit: Research F/U [958] Prescriptions as of 09/26/2023 - pregabalin (LYRICA) [...] Encounter Status:Closed by [facility]CKNER [facility]26[facility]23 [facility] [facility] HNO ID: [id number] Author: ANTHONY BARROW MD Service: Hospital Medicine Author Type: Physician Type: Discharge Summary Filed: 09/04/2023 10:32 Note Text: DISCHARGE SUMMARY PATIENT NAME: Aislinn Wheleer ADMISSION DATE: 08/31/2023 DISCHARGE DATE: 09/04/2023 ATTENDING [...] UP PROVIDER FOR SUMMARY OF CARE - MEASURE PATIENT CONDITION AT DISCHARGE: Fair ADVANCE [...] Provider Department Center 10/06/2023 1:00 PM US ON LICENSE OF [facility] BRITTANIE VALDES ON LICENSE OF [facility] Brittanie 10/06/2023 2:00 PM LAB ON LICENSE OF [facility] [place] [facility] ON LICENSE OF [facility] Brittanie 10/11/2023 1:50 PM [facility] ALLERGIES Allergen Reactions Latex Rash Added [...] U-100 INSULIN SUBCUTANEO (more content not included)... [facility] ALLIED HEALTH 09-03-2023 ALLIED HEALTH HNO ID: [id number] Author: NICOL MILLIGAN RT(R) Service: Radiology Author [...] RT Michael(R) September 03, 2023 2:57 PM [facility] Basic metabolic 2000 panelon 09-03-2023 Anion gap [Moles/Vol] 10 mmol/L Normal 9-18 [facility] Comment on above: Order Comment: Speci men Type: BLOOD SPECIMEN Ordering Facility: [facility] Address: [address] [place] [address] Performed By: #### 2 4321-2 #### [facility] CLIA [id number] [address] [place] [address] [place] Calcium [Mass/Vol] 8.8 mg/dL Normal 8.5-10.2 [facility] Comment on above: Order Comment: Speci men Type: BLOOD SPECIMEN Ordering Facility: [facility] Address: [address] [place] [address] Performed By: #### 2 4321-2 #### [facility] CLIA [id number] [address] [place] [address] [place] Chloride [Moles/Vol] 103 mmol/L Normal 97-105 [facility] Comment on above: Order Comment: Speci men Type: BLOOD SPECIMEN Ordering Facility: [facility] Address: [address] [place] [address] Performed By: #### 2 4321-2 #### [facility] CLIA [id number] [address] [place] [address] [place] CO2 [Moles/Vol] 23 mmol/L Normal 22-30 [facility] Comment on above: Order Comment: Speci men Type: BLOOD SPECIMEN Ordering Facility: [facility] Address: [address] [place] [address] Performed By: #### 2 4321-2 #### [facility] CLIA [id number] [address] [place] [address] [place] Creatinine [Mass/Vol] 1.29 mg/dL High 0.58-0.96 [facility] Comment on above: Order Comment: Speci men Type: BLOOD SPECIMEN Ordering Facility: [facility] Address: [address] [place] [address] Performed By: #### 2 4321-2 #### [facility] CLIA [id number] [address] [place] [address] [place] Creatinine and Glomerular filtration rate.predicted panel (S/P/Bld) 46 mL/min/1.73m??? Low >=60 [facility] Comment on above: Order Comment: [place] Type: BLOOD SPECIMEN Ordering Facility: [facility] Address: [address] [place] [address] Result Comment: Donna mated Glomerular Filtration Rate [...] GFR. Performed By: #### 2 4321-2 #### [facility] CLIA [id number] [place] [address] [place] Glucose [Mass/Vol] 123 mg/dL High 74-99 [facility] Comment on above: Order Comment: [place] Type: BLOOD SPECIMEN Ordering Facility: [facility] Address: [address] [place] [address] Result Comment: The [place] Diabetes [employer] (ADA) provides guidance for cutoff [...] Standards of Medical Care in Diabetes 2016, [place] [employer]. Diabetes Care. 2016.39(Suppl 1). Performed By: #### 2 4321-2 #### [facility] CLIA [id number] [address] [place] [address] [place] Potassium [Moles/Vol] 5.0 mmol/L Normal 3.7-5.1 [facility] Comment on above: Order Comment: [place] Type: BLOOD SPECIMEN Ordering Facility: [facility] Address: [address] [place] [address] Performed By: #### 2 4321-2 #### [facility] CLIA [id number] [address] [place] [address] [place] Sodium [Moles/Vol] 136 mmol/L Normal 136-144 [facility] Comment on above: Order Comment: Speci men Type: BLOOD SPECIMEN Ordering Facility: [facility] Address: [address] [place] [address] Performed By: #### 2 4321-2 #### [facility] CLIA [id number] [address] [place] [address] [place] Urea nitrogen [Mass/Vol] 22 mg/dL High 7-21 [facility] Comment on above: Order Comment: Speci men Type: BLOOD SPECIMEN Ordering Facility: [facility] Address: [address] [place] [address] Performed By: #### 2 4321-2 #### [facility] CLIA [id number] [address] [place] [address] [place] CBC panel Auto (Bld)on 09-03 Erythrocyte distribution width (RBC) [Ratio] 14.6 % Normal 11.5-15.0 [facility] Comment on above: Order Comment: Speci men Type: BLOOD SPECIMEN Ordering Facility: [facility] Address: [address] [place] [address] Performed By: #### [place], 30408-8 #### [facility] CLIA [id number] [address] [place] [address] [place] Hematocrit (Bld) [Volume fraction] 28.7 % Low 36.0-46.0 [facility] Comment on above: Order Comment: Speci men Type: BLOOD SPECIMEN Ordering Facility: [facility] Address: [address] [place] [address] Performed By: #### B HB, 85578-8 #### [facility] CLIA [id number] [place] [address] [place] Hemoglobin (Bld) [Mass/Vol] 8.9 g/dL Low 11.5-15.5 [facility] Comment on above: Order Comment: Speci men Type: BLOOD SPECIMEN Ordering Facility: [facility] Address: [address] [place] [address] Performed By: #### B HB, #### [facility] CLIA [id number] [address] [place] [address] MCH (RBC) [Entitic mass] 24.1 pg Low 26.0-34.0 [facility] Comment on above: Order Comment: Speci men Type: BLOOD SPECIMEN Ordering Facility: [facility] Address: [address] [place] [address] Performed By: #### B HB, #### [facility] CLIA [id number] [address] [place] [address] STATES [facility] MCHC (RBC) [Mass/Vol] 31.0 g/dL Normal 30.5-36.0 [facility] Comment on above: Order Comment: Speci men Type: BLOOD SPECIMEN Ordering Facility: [facility] Address: [address] [place] [address] Performed By: #### B HB, #### [facility] CLIA [id number] [address] [place] [address] [place] MCV (RBC) [Entitic vol] 77.6 fL Low 80.0-100.0 [facility] Comment on above: Order Comment: Speci men Type: BLOOD SPECIMEN Ordering Facility: [facility] Address: [address] [place] [address] Performed By: #### B HB, #### [facility] CLIA [id number] [address] [place] [address] Nucleated RBC (Bld) [#/Vol] 10*3/uL Normal <0.01 [facility] Comment on above: Order Comment: Speci men Type: BLOOD SPECIMEN Ordering Facility: [facility] Address: [address] [place] [address] Performed By: #### B HB, #### [facility] CLIA [id number] [address] [place] [address] [place] Platelet mean volume (Bld) [Entitic vol] 10.8 fL Normal 9.0-12.7 [facility] Comment on above: Order Comment: Speci men Type: BLOOD SPECIMEN Ordering Facility: [facility] Address: [address] [place] [address] Performed By: #### B HB, 15787-0 #### [facility] CLIA [id number] [address] [place] [address] [place] Platelets (Bld) [#/Vol] 334 10*3/uL Normal 150-400 [facility] Comment on above: Order Comment: Speci men Type: BLOOD SPECIMEN Ordering Facility: [facility] Address: [address] [place] [address] Performed By: #### [place], [address]-2 #### [facility] CLIA [id number] [address] [place] [address] [place] RBC (Bld) [#/Vol] 3.70 10*6/uL Low 3.90-5.20 [facility] Comment on above: Order Comment: Speci men Type: BLOOD SPECIMEN Ordering Facility: [facility] Address: [address] [place] [address] Performed By: #### [place], [address]-6 #### [facility] CLIA [id number] [address] [place] [address] [place] WBC (Bld) [#/Vol] 6.44 10*3/uL Normal 3.70-11.00 [facility] Comment on above: Order Comment: Speci men Type: BLOOD SPECIMEN Ordering Facility: [facility] Address: [address] [place] [address] Performed By: #### B [place], 38417-9 #### [facility] CLIA [id number] [address] [place] [address] [place] FOOT WO [...] NO EVIDENCE OF OSTEOMYELITIS ON THIS EXAMINATION. [employer] Transcribe Date/Time: Sep 03 2023 11:22P Dictated by : FINESSE BUTLER MD This examination was interpreted and the report reviewed and electronically signed by: FINESSE BUTLER MD on Sep 03 2023 11:27PM EST [id number] Normal [facility] Basic metabolic 2000 panelon 09-02-2023 Anion gap [Moles/Vol] 9 mmol/L Normal 9-18 [facility] Comment on above: Order Comment: Simonai reinier Type: BLOOD SPECIMEN Ordering Facility: [facility] Address: [address] [place] [address] Performed By: #### B HB, 77579-7 #### [facility] CLIA [id number] [address] [place] [address] [place] Calcium [Mass/Vol] 8.1 mg/dL Low 8.5-10.2 [facility] Comment on above: Order Comment: [place] men Type: BLOOD SPECIMEN Ordering Facility: [facility] Address: [address] [place] [address] Performed By: #### B HB, 42964-9 #### [facility] CLIA [id number] [address] [place] [address] [place] Chloride [Moles/Vol] 106 mmol/L High 97-105 [facility] Comment on above: Order Comment: Speci men Type: BLOOD SPECIMEN Ordering Facility: [facility] Address: [address] [place] [address] Performed By: #### B HB, #### [facility] CLIA [id number] [address] [place] [address] [place] CO2 [Moles/Vol] 22 mmol/L Normal 22-30 [facility] Comment on above: Order Comment: Speci men Type: BLOOD SPECIMEN Ordering Facility: [facility] Address: [address] [place] [address] Performed By: #### B HB, #### [facility] CLIA [id number] [address] [place] [address] Creatinine [Mass/Vol] 1.30 mg/dL High 0.58-0.96 [facility] Comment on above: Order Comment: Speci men Type: BLOOD SPECIMEN Ordering Facility: [facility] Address: [address] [place] [address] Performed By: #### B HB, #### [facility] CLIA [id number] [address] [place] [address] Creatinine and Glomerular filtration rate.predicted panel (S/P/Bld) 46 mL/min/1.73m??? Low >=60 [facility] Comment on above: Order Comment: Speci men Type: BLOOD SPECIMEN Ordering Facility: [facility] Address: [address] [place] [address] Result Comment: Donna mated Glomerular Filtration Rate [...] actual GFR. Performed By: #### B HB, 46902-0 #### [facility] CLIA [id number] [address] [place] [address] [place] Glucose [Mass/Vol] 192 mg/dL High 74-99 [facility] Comment on above: Order Comment: [place] Type: BLOOD SPECIMEN Ordering Facility: [facility] Address: [address] [place] [address] Result Comment: The [place] Diabetes Association (ADA) provides guidance for cutoff [...] Standards of Medical Care in Diabetes 2016, [place] [employer]. Diabetes Care. 2016.39(Suppl 1). Performed By: #### [place], 60580-8 #### [facility] CLIA [id number] [address] [place] [address] [place] Potassium [Moles/Vol] 4.9 mmol/L Normal 3.7-5.1 [facility] Comment on above: Order Comment: [place] Type: BLOOD SPECIMEN Ordering Facility: [facility] Address: [address] [place] [address] Performed By: #### B HB, 38614-5 #### [facility] CLIA [id number] [address] [place] [address] [place] Sodium [Moles/Vol] 137 mmol/L Normal 136-144 [facility] Comment on above: Order Comment: [place] Type: BLOOD SPECIMEN Ordering Facility: [facility] Address: [address] [place] [address] Performed By: #### B HB, 44749-8 #### [facility] CLIA [id number] [address] [place] [address] [place] Urea nitrogen [Mass/Vol] 17 mg/dL Normal 7-21 [facility] Comment on above: Order Comment: [place] Type: BLOOD SPECIMEN Ordering Facility: [facility] Address: [address] [place] [address] Performed By: #### B HB, #### [facility] CLIA [id number] [address] [place] [address] [place] CBC panel Auto (Bld)on 09-02 Erythrocyte distribution width (RBC) [Ratio] 14.6 % Normal 11.5-15.0 [facility] Comment on above: Order Comment: Speci men Type: BLOOD SPECIMEN Ordering Facility: [facility] Address: [address] [place] [address] Performed By: #### B HB, 62419-0 #### [facility] CLIA [id number] [address] [place] [address] [place] Hematocrit (Bld) [Volume fraction] 28.4 % Low 36.0-46.0 [facility] Comment on above: Order Comment: Speci men Type: BLOOD SPECIMEN Ordering Facility: [facility] Address: [address] [place] [address] Performed By: #### B HB, #### [facility] CLIA [id number] [address] [place] [address] [place] Hemoglobin (Bld) [Mass/Vol] 8.9 g/dL Low 11.5-15.5 [facility] Comment on above: Order Comment: Speci men Type: BLOOD SPECIMEN Ordering Facility: [facility] Address: [address] [place] [address] Performed By: #### B HB, #### [facility] CLIA [id number] [address] [place] [address] [place] MCH (RBC) [Entitic mass] 24.2 pg Low 26.0-34.0 [facility] Comment on above: Order Comment: Speci men Type: BLOOD SPECIMEN Ordering Facility: [facility] Address: [address] [place] [address] Performed By: #### B HB, 22377-0 #### [facility] CLIA [id number] [address] [place] [address] [place] MCHC (RBC) [Mass/Vol] 31.3 g/dL Normal 30.5-36.0 [facility] Comment on above: Order Comment: Speci men Type: BLOOD SPECIMEN Ordering Facility: [facility] Address: [address] [place] [address] Performed By: #### B HB, #### [facility] CLIA [id number] [address] [place] [address] [place] MCV (RBC) [Entitic vol] 77.2 fL Low 80.0-100.0 [facility] Comment on above: Order Comment: Speci men Type: BLOOD SPECIMEN Ordering Facility: [facility] Address: [address] [place] [address] Performed By: #### B HB, #### [facility] CLIA [id number] [address] [place] [address] [place] Nucleated RBC (Bld) [#/Vol] 10*3/uL Normal <0.01 [facility] Comment on above: Order Comment: Speci men Type: BLOOD SPECIMEN Ordering Facility: [facility] Address: [address] [place] [address] Performed By: #### B HB, #### [facility] CLIA [id number] [address] [place] [address] [place] Platelet mean volume (Bld) [Entitic vol] 10.4 fL Normal 9.0-12.7 [facility] Comment on above: Order Comment: Speci men Type: BLOOD SPECIMEN Ordering Facility: [facility] Address: [address] [place] [address] Performed By: #### B HB, #### [facility] CLIA [id number] [address] [place] [address] [place] Platelets (Bld) [#/Vol] 285 10*3/uL Normal 150-400 [facility] Comment on above: Order Comment: Speci men Type: BLOOD SPECIMEN Ordering Facility: [facility] Address: [address] [place] [address] Performed By: #### B HB, #### [facility] CLIA [id number] [address] [place] [address] [place] RBC (Bld) [#/Vol] 3.68 10*6/uL Low 3.90-5.20 [facility] Comment on above: Order Comment: Speci men Type: BLOOD SPECIMEN Ordering Facility: [facility] Address: [address] [place] [address] Performed By: #### B HB, 24550-3 #### [facility] CLIA [id number] [address] [place] [address] [place] WBC (Bld) [#/Vol] 5.94 10*3/uL Normal 3.70-11.00 [facility] Comment on above: Order Comment: Speci men Type: BLOOD SPECIMEN Ordering Facility: [facility] Address: [address] [place] [address] Performed By: #### B HB, 35930-3 #### [facility] CLIA [id number] [address] [place] [address] [place] Bacteria Ur Culton 4 Bacteria identified Cx Nom (U) CULTURE, URINE: No growth (<1,000 CFU/ml) Normal [facility] Comment on above: Performed By: #### 6 30-4 #### [facility] CLIA [id number] [address] [facility] [place] [address] [place] Basic metabolic 2000 panelon 09-01-2023 Anion gap [Moles/Vol] 10 mmol/L Normal 9-18 [facility] Comment on above: Order Comment: Speci men Type: BLOOD SPECIMEN Ordering Facility: [facility] Address: [address] [place] [address] Performed By: #### B HB, 34367-1 #### [facility] CLIA [id number] [address] [place] [address] [place] Calcium [Mass/Vol] 7.9 mg/dL Low 8.5-10.2 [facility] Comment on above: Order Comment: Speci men Type: BLOOD SPECIMEN Ordering Facility: [facility] Address: [address] [place] [address] Performed By: #### B HB, 47946-6 #### [facility] CLIA [id number] [address] [place] [address] [place] Chloride [Moles/Vol] 108 mmol/L High 97-105 [facility] Comment on above: Order Comment: Speci men Type: BLOOD SPECIMEN Ordering Facility: [facility] Address: [address] [place] [address] Performed By: #### B HB, 46058-9 #### [facility] CLIA [id number] [address] [place] [address] [place] CO2 [Moles/Vol] 20 mmol/L Low 22-30 [facility] Comment on above: Order Comment: Speci men Type: BLOOD SPECIMEN Ordering Facility: [facility] Address: [address] [place] [address] Performed By: #### B HB, #### [facility] CLIA [id number] [address] [place] [address] [place] Creatinine [Mass/Vol] 1.39 mg/dL High 0.58-0.96 [facility] Comment on above: Order Comment: Speci men Type: BLOOD SPECIMEN Ordering Facility: [facility] Address: [address] [place] [address] Performed By: #### B HB, 22161-1 #### [facility] CLIA [id number] [address] [place] [address] [place] Creatinine and Glomerular filtration rate.predicted panel (S/P/Bld) 42 mL/min/1.73m??? Low >=60 [facility] Comment on above: Order Comment: Speci men Type: BLOOD SPECIMEN Ordering Facility: [facility] Address: [address] [place] [address] Result Comment: Donna mated Glomerular Filtration Rate [...] actual GFR. Performed By: #### B HB, #### [facility] CLIA [id number] [address] [place] [address] [place] Glucose [Mass/Vol] 74 mg/dL Normal 74-99 [facility] Comment on above: Order Comment: [place] Type: BLOOD SPECIMEN Ordering Facility: [facility] Address: [address] [place] [address] Result Comment: The [place] Diabetes Association (ADA) provides guidance for cutoff [...] Standards of Medical Care in Diabetes 2016, [place] [employer]. Diabetes Care. 2016.39(Suppl 1). Performed By: #### B HB, #### [facility] CLIA [id number] [address] [place] [address] [place] Potassium [Moles/Vol] 4.7 mmol/L Normal 3.7-5.1 [facility] Comment on above: Order Comment: [place] Type: BLOOD SPECIMEN Ordering Facility: [facility] Address: [address] [place] [address] Performed By: #### B HB, #### [facility] CLIA [id number] [address] [place] [address] [place] Sodium [Moles/Vol] 138 mmol/L Normal 136-144 [facility] Comment on above: Order Comment: [place] Type: BLOOD SPECIMEN Ordering Facility: [facility] Address: [address] [place] [address] Performed By: #### B HB, #### [facility] CLIA [id number] [address] [place] [address] [place] Urea nitrogen [Mass/Vol] 25 mg/dL High 7-21 [facility] Comment on above: Order Comment: Speci men Type: BLOOD SPECIMEN Ordering Facility: [facility] Address: [address] [place] [address] Performed By: #### B HB, #### [facility] CLIA [id number] [address] [place] [address] [place] CBC panel Auto (Bld)on 09-01 Erythrocyte distribution width (RBC) [Ratio] 14.7 % Normal 11.5-15.0 [facility] Comment on above: Order Comment: Speci men Type: BLOOD SPECIMEN Ordering Facility: [facility] Address: [address] [place] [address] Performed By: #### B HB, #### [facility] CLIA [id number] [address] [place] [address] [place] Hematocrit (Bld) [Volume fraction] 29.4 % Low 36.0-46.0 [facility] Comment on above: Order Comment: Speci men Type: BLOOD SPECIMEN Ordering Facility: [facility] Address: [address] [place] [address] Performed By: #### B HB, #### [facility] CLIA [id number] [address] [place] [address] [place] Hemoglobin (Bld) [Mass/Vol] 9.1 g/dL Low 11.5-15.5 [facility] Comment on above: Order Comment: Speci men Type: BLOOD SPECIMEN Ordering Facility: [facility] Address: [address] [place] [address] Performed By: #### B HB, #### [facility] CLIA [id number] [address] [place] [address] [place] MCH (RBC) [Entitic mass] 24.4 pg Low 26.0-34.0 [facility] Comment on above: Order Comment: Speci men Type: BLOOD SPECIMEN Ordering Facility: [facility] Address: [address] [place] [address] Performed By: #### B HB, #### [facility] CLIA [id number] [address] [place] [address] [place] MCHC (RBC) [Mass/Vol] 31.0 g/dL Normal 30.5-36.0 [facility] Comment on above: Order Comment: Speci men Type: BLOOD SPECIMEN Ordering Facility: [facility] Address: [address] [place] [address] Performed By: #### B HB, 06827-7 #### [facility] CLIA [id number] [address] [place] [address] [place] MCV (RBC) [Entitic vol] 78.8 fL Low 80.0-100.0 [facility] Comment on above: Order Comment: Speci men Type: BLOOD SPECIMEN Ordering Facility: [facility] Address: [address] [place] [address] Performed By: #### B HB, #### [facility] CLIA [id number] [address] [place] [address] [place] Nucleated RBC (Bld) [#/Vol] 10*3/uL Normal <0.01 [facility] Comment on above: Order Comment: Speci men Type: BLOOD SPECIMEN Ordering Facility: [facility] Address: [address] [place] [address] Performed By: #### B HB, #### [facility] CLIA [id number] [address] [place] [address] [place] Platelet mean volume (Bld) [Entitic vol] 10.8 fL Normal 9.0-12.7 [facility] Comment on above: Order Comment: Speci men Type: BLOOD SPECIMEN Ordering Facility: [facility] Address: [address] [place] [address] Performed By: #### B HB, 37418-8 #### [facility] CLIA [id number] [address] [place] [address] [place] Platelets (Bld) [#/Vol] 275 10*3/uL Normal 150-400 [facility] Comment on above: Order Comment: Speci men Type: BLOOD SPECIMEN Ordering Facility: [facility] Address: [address] [place] [address] Performed By: #### B HB, 24063-3 #### [facility] CLIA [id number] [address] [place] [id number] [place] RBC (Bld) [#/Vol] 3.73 10*6/uL Low 3.90-5.20 [facility] Comment on above: Order Comment: Speci men Type: BLOOD SPECIMEN Ordering Facility: [facility] Address: [address] [place] [address] Performed By: #### B [place], 26757-4 #### [facility] CLIA [id number] [address] [place] [id number] [place] WBC (Bld) [#/Vol] 7.48 10*3/uL Normal 3.70-11.00 [facility] Comment on above: Order Comment: Speci men Type: BLOOD SPECIMEN Ordering Facility: [facility] Address: [address] [place] [address] Performed By: #### [place], 88[address]-2 #### [facility] CLIA [id number] [address] [place] [id number] [facility] [place] CONSULTon 09-01-2023 CONSULT HNO ID: [id number] Author: NORMAN ROUSSEAU RN Service: ? Author [...] 2023 TIME: 10:44 AM PAGER/CONTACT #: Normal [facility] Magnesium SerPl-mCncon 09-01 Magnesium [Mass/Vol] 1.5 mg/dL Low 1.7-2.3 [facility] Comment on above: Order Comment: Speci men Type: BLOOD SPECIMEN Ordering Facility: [facility] Address: [address] [place] [address] Performed By: #### B HB, #### [facility] CLIA [id number] [address] [place] [address] [place] URINALYSIS, REFLEX MICROSCOP ICon 09-01-2023 Bacteria LM.HPF (Urine sed) [#/Area] Few Abnormal None Seen [facility] Comment on above: Order Comment: Speci men Type: BLOOD SPECIMEN Ordering Facility: [facility] Address: [address] [place] [address] Performed By: #### B HB, #### [facility] CLIA [id number] [address] [place] [address] [place] Bilirubin Ql (U) Negative Normal Negative [facility] Comment on above: Order Comment: Speci men Type: BLOOD SPECIMEN Ordering Facility: [facility] Address: [address] [place] [address] Performed By: #### B HB, #### [facility] CLIA [id number] [address] [place] [address] [place] Clarity (Unsp spec) Turbid Abnormal Clear [facility] Comment on above: Order Comment: Speci men Type: BLOOD SPECIMEN Ordering Facility: [facility] Address: [address] [place] [address] Performed By: #### B HB, #### [facility] CLIA [id number] [address] [place] [address] [place] Color (U) Light Yellow Normal Yellow [facility] Comment on above: Order Comment: Speci men Type: BLOOD SPECIMEN Ordering Facility: [facility] Address: [address] [place] [address] Performed By: #### B HB, #### [facility] CLIA [id number] [address] [place] [address] [place] Epithelial cells LM.HPF (Urine sed) [#/Area] Few Normal [facility] Comment on above: Order Comment: Speci men Type: BLOOD SPECIMEN Ordering Facility: [facility] Address: [address] [place] [address] Performed By: #### B HB, 38092-3 #### [facility] CLIA [id number] [address] [place] [address] Glucose Test strip (U) [Mass/Vol] Negative Normal Trace, Negative [facility] Comment on above: Order Comment: Speci men Type: BLOOD SPECIMEN Ordering Facility: [facility] Address: [address] [place] [address] Performed By: #### B HB, #### [facility] CLIA [id number] [address] [place] [address] Hemoglobin Ql (U) 1+ Abnormal Negative, Trace [facility] Comment on above: Order Comment: Speci men Type: BLOOD SPECIMEN Ordering Facility: [facility] Address: [address] [place] [address] Performed By: #### B HB, #### [facility] CLIA [id number] [address] [place] [address] Ketones Ql (U) Negative Normal Negative, Trace [facility] Comment on above: Order Comment: Speci men Type: BLOOD SPECIMEN Ordering Facility: [facility] Address: [address] [place] [address] Performed By: #### B HB, #### [facility] CLIA [id number] [address] [place] [address] Leukocyte esterase Test strip Ql (U) 500 Yuan/uL Abnormal Negative, 25 Yuan/uL [facility] Comment on above: Order Comment: Speci men Type: BLOOD SPECIMEN Ordering Facility: [facility] Address: [address] [place] [address] Performed By: #### B HB, #### [facility] CLIA [id number] [address] [place] [address] STATES [facility] Nitrite Ql (U) Negative Normal Negative [facility] Comment on above: Order Comment: Speci men Type: BLOOD SPECIMEN Ordering Facility: [facility] Address: [address] [place] [address] Performed By: #### B HB, #### [facility] CLIA [id number] [address] [place] [address] [place] pH (U) 6.0 [pH] Normal 5.0-8.0 [facility] Comment on above: Order Comment: Speci men Type: BLOOD SPECIMEN Ordering Facility: [facility] Address: [address] [place] [address] Performed By: #### B HB, #### [facility] CLIA [id number] [address] [place] [address] [place] Protein (U) [Mass/Vol] 1+ Abnormal Trace, Negative [facility] Comment on above: Order Comment: Speci men Type: BLOOD SPECIMEN Ordering Facility: [facility] Address: [address] [place] [address] Performed By: #### B HB, #### [facility] CLIA [id number] [address] [place] [address] [place] RBC LM.HPF (Urine sed) [#/Area] /[HPF] Abnormal 0-3 /HPF [facility] Comment on above: Order Comment: Speci men Type: BLOOD SPECIMEN Ordering Facility: [facility] Address: [address] [place] [address] Performed By: #### B HB, #### [facility] CLIA [id number] [address] [place] [address] [place] Specific gravity (U) [Rel density] 1.011 Normal 1.005-1.030 [facility] Comment on above: Order Comment: Speci men Type: BLOOD SPECIMEN Ordering Facility: [facility] Address: [address] [place] [address] Performed By: #### B HB, #### [facility] CLIA [id number] [address] [place] [address] [place] Urobilinogen Ql (U) Negative Normal Negative [facility] Comment on above: Order Comment: Speci men Type: BLOOD SPECIMEN Ordering Facility: [facility] Address: [address] [place] [address] Performed By: #### B HB, #### [facility] CLIA [id number] [address] [place], [place] [id number] [place] WBC LM.HPF (Urine sed) [#/Area] /[HPF] Abnormal 0-5 /HPF [facility] Comment on above: Order Comment: Speci men Type: BLOOD SPECIMEN Ordering Facility: [facility] Address: [address] [place] [address] Performed By: #### B , 82491-6 #### [facility] CLIA [id number] [address] [place] [address] [place] ALLIED HEALTHon 08-31-2023 ALLIED HEALTH HNO ID: [id number] Author: LAKISHA LITTLE RT(R) Service: ? Author [...] Chriss(R) August 31, 2023 4:44 AM Normal [facility] Bacteria Bld Culton 08-31-19 24 Bacteria identified Cx Nom (Bld) CULTURE, BLOOD: No growth 5 days Normal [facility] Comment on above: Performed By: #### 6 00-7 ####[facility] [id number] [address] [place] Bacteria Ur Culton 4 [...] technique or straight catheterization for???urine???collectio n. Normal [facility] Comment on above: Performed By: #### 6 30-4 #### [facility] CLIA [id number] [address] [facility] [place] [address] [place] CBC W Auto Differential pane l (Bld)on 08-31-2023 Basophils (Bld) [#/Vol] 0.03 10*3/uL Normal <0.11 [facility] Comment on above: Order Comment: Speci men Type: BLOOD SPECIMEN Ordering Facility: [facility] Address: [address] [place] [address] Performed By: #### B HB, #### [facility] CLIA [id number] [place] [address] [place] Basophils/100 WBC (Bld) 0.3 % Normal [facility] Comment on above: Order Comment: Speci men Type: BLOOD SPECIMEN Ordering Facility: [facility] Address: [address] [place] [address] Performed By: #### B HB, #### [facility] CLIA [id number] [address] [place] [address] [place] Differential cell count method Nom (Bld) Auto Normal [facility] Comment on above: Order Comment: Speci men Type: BLOOD SPECIMEN Ordering Facility: [facility] Address: [address] [place] [address] Performed By: #### B HB, #### [facility] CLIA [id number] [address] [place] [address] [place] Eosinophils (Bld) [#/Vol] 10*3/uL Normal <0.46 [facility] Comment on above: Order Comment: Speci men Type: BLOOD SPECIMEN Ordering Facility: [facility] Address: [address] [place] [address] Performed By: #### B HB, #### [facility] CLIA [id number] [address] [place] [address] [place] Eosinophils/100 WBC (Bld) 0.1 % Normal [facility] Comment on above: Order Comment: Speci men Type: BLOOD SPECIMEN Ordering Facility: [facility] Address: [address] [place] [address] Performed By: #### B HB, #### [facility] CLIA [id number] [address] [place] [address] [place] Erythrocyte distribution width (RBC) [Ratio] 14.5 % Normal 11.5-15.0 [facility] Comment on above: Order Comment: Speci men Type: BLOOD SPECIMEN Ordering Facility: [facility] Address: [address] [place] [address] Performed By: #### B HB, #### [facility] CLIA [id number] [address] [place] [address] [place] Hematocrit (Bld) [Volume fraction] 31.5 % Low 36.0-46.0 [facility] Comment on above: Order Comment: Speci men Type: BLOOD SPECIMEN Ordering Facility: [facility] Address: [address] [place] [address] Performed By: #### B HB, #### [facility] CLIA [id number] [address] [place] [address] [place] Hemoglobin (Bld) [Mass/Vol] 10.0 g/dL Low 11.5-15.5 [facility] Comment on above: Order Comment: Speci men Type: BLOOD SPECIMEN Ordering Facility: [facility] Address: [address] [place] [address] Performed By: #### B HB, #### [facility] CLIA [id number] [address] [place] [address] [place] Immature granulocytes (Bld) [#/Vol] 0.06 10*3/uL Normal <0.10 [facility] Comment on above: Order Comment: Speci men Type: BLOOD SPECIMEN Ordering Facility: [facility] Address: [address] [place] [address] Performed By: #### B HB, #### [facility] CLIA [id number] [address] [place] [address] [place] Immature granulocytes/100 WBC (Bld) 0.7 % Normal [facility] Comment on above: Order Comment: Speci men Type: BLOOD SPECIMEN Ordering Facility: [facility] Address: [address] [place] [address] Performed By: #### B HB, #### [facility] CLIA [id number] [address] [place] [address] [place] Lymphocytes (Bld) [#/Vol] 1.67 10*3/uL Normal 1.00-4.00 [facility] Comment on above: Order Comment: Speci men Type: BLOOD SPECIMEN Ordering Facility: [facility] Address: [address] [place] [address] Performed By: #### B HB, #### [facility] CLIA [id number] [address] [place] [address] [place] Lymphocytes/100 WBC (Bld) 18.8 % Normal [facility] Comment on above: Order Comment: Speci men Type: BLOOD SPECIMEN Ordering Facility: [facility] Address: [address] [place] [address] Performed By: #### B HB, #### [facility] CLIA [id number] [address] [place] [address] [place] MCH (RBC) [Entitic mass] 24.5 pg Low 26.0-34.0 [facility] Comment on above: Order Comment: Speci men Type: BLOOD SPECIMEN Ordering Facility: [facility] Address: [address] [place] [address] Performed By: #### B HB, 79707-0 #### [facility] CLIA [id number] [address] [place] [address] [place] MCHC (RBC) [Mass/Vol] 31.7 g/dL Normal 30.5-36.0 [facility] Comment on above: Order Comment: Speci men Type: BLOOD SPECIMEN Ordering Facility: [facility] Address: [address] [place] [address] Performed By: #### B HB, #### [facility] CLIA [id number] [address] [place] [address] [place] MCV (RBC) [Entitic vol] 77.2 fL Low 80.0-100.0 [facility] Comment on above: Order Comment: Speci men Type: BLOOD SPECIMEN Ordering Facility: [facility] Address: [address] [place] [address] Performed By: #### B HB, #### [facility] CLIA [id number] [address] [place] [address] [place] Monocytes (Bld) [#/Vol] 0.71 10*3/uL Normal <0.87 [facility] Comment on above: Order Comment: Speci men Type: BLOOD SPECIMEN Ordering Facility: [facility] Address: [address] [place] [address] Performed By: #### B HB, #### [facility] CLIA [id number] [address] [place] [address] [place] Monocytes/100 WBC (Bld) 8.0 % Normal [facility] Comment on above: Order Comment: Speci men Type: BLOOD SPECIMEN Ordering Facility: [facility] Address: [address] [place] [address] Performed By: #### B HB, #### [facility] CLIA [id number] [address] [place] [address] [place] Neutrophils (Bld) [#/Vol] 6.39 10*3/uL Normal 1.45-7.50 [facility] Comment on above: Order Comment: Speci men Type: BLOOD SPECIMEN Ordering Facility: [facility] Address: [address] [place] [address] Performed By: #### B HB, #### [facility] CLIA [id number] [address] [place] [address] [place] Neutrophils/100 WBC (Bld) 72.1 % Normal [facility] Comment on above: Order Comment: Speci men Type: BLOOD SPECIMEN Ordering Facility: [facility] Address: [address] [place] [address] Performed By: #### B HB, #### [facility] CLIA [id number] [address] [place] [address] [place] Nucleated RBC (Bld) [#/Vol] 10*3/uL Normal <0.01 [facility] Comment on above: Order Comment: Speci men Type: BLOOD SPECIMEN Ordering Facility: [facility] Address: [address] [place] [address] Performed By: #### B HB, #### [facility] CLIA [id number] [address] [place] [address] [place] Nucleated RBC/100 WBC (Bld) [Ratio] 0.0 /100 WBC Normal [facility] Comment on above: Order Comment: Speci men Type: BLOOD SPECIMEN Ordering Facility: [facility] Address: [address] [place] [address] Performed By: #### B HB, #### [facility] CLIA [id number] [address] [place] [address] [place] Platelet mean volume (Bld) [Entitic vol] 11.3 fL Normal 9.0-12.7 [facility] Comment on above: Order Comment: Speci men Type: BLOOD SPECIMEN Ordering Facility: [facility] Address: [address] [place] [address] Performed By: #### B HB, #### [facility] CLIA [id number] [address] [place] [address] [place] Platelets (Bld) [#/Vol] 316 10*3/uL Normal 150-400 [facility] Comment on above: Order Comment: Speci men Type: BLOOD SPECIMEN Ordering Facility: [facility] Address: [address] [place] [address] Performed By: #### B HB, #### [facility] CLIA [id number] [address] [place] [address] [place] RBC (Bld) [#/Vol] 4.08 10*6/uL Normal 3.90-5.20 [facility] Comment on above: Order Comment: Speci men Type: BLOOD SPECIMEN Ordering Facility: [facility] Address: [address] [place] [address] Performed By: #### B HB, #### [facility] CLIA [id number] [address] [place] [address] [place] WBC (Bld) [#/Vol] 8.87 10*3/uL Normal 3.70-11.00 [facility] Comment on above: Order Comment: Speci men Type: BLOOD SPECIMEN Ordering Facility: [facility] Address: [address] [place] [address] Performed By: #### B HB, #### [facility] CLIA [id number] [address] [place] [address] [place] Comprehensive metabolic 2000 panelon 08-31-2023 Albumin [Mass/Vol] 3.7 g/dL Low 3.9-4.9 [facility] Comment on above: Order Comment: Speci men Type: BLOOD SPECIMEN Ordering Facility: [facility] Address: [address] [place] [address] Performed By: #### B HB, #### [facility] CLIA [id number] [address] [place] [address] [place] ALP [Catalytic activity/Vol] 99 U/L Normal 34-123 [facility] Comment on above: Order Comment: Speci men Type: BLOOD SPECIMEN Ordering Facility: [facility] Address: [address] [place] [address] Performed By: #### B HB, #### [facility] CLIA [id number] [address] [place] [address] [place] ALT [Catalytic activity/Vol] U/L Low 7-38 [facility] Comment on above: Order Comment: Speci men Type: BLOOD SPECIMEN Ordering Facility: [facility] Address: [address] [place] [address] Performed By: #### B HB, 58260-7 #### [facility] CLIA [id number] [address] [place] [address] [place] Anion gap [Moles/Vol] 12 mmol/L Normal 9-18 [facility] Comment on above: Order Comment: Speci men Type: BLOOD SPECIMEN Ordering Facility: [facility] Address: [address] [place] [address] Performed By: #### B HB, #### [facility] CLIA [id number] [address] [place] [address] [place] AST [Catalytic activity/Vol] 7 U/L Low 13-35 [facility] Comment on above: Order Comment: Speci men Type: BLOOD SPECIMEN Ordering Facility: [facility] Address: [address] [place] [address] Performed By: #### B HB, #### [facility] CLIA [id number] [address] [place] [address] [place] Bilirubin [Mass/Vol] 0.3 mg/dL Normal 0.2-1.3 [facility] Comment on above: Order Comment: Speci men Type: BLOOD SPECIMEN Ordering Facility: [facility] Address: [address] [place] [address] Performed By: #### B HB, #### [facility] CLIA [id number] [address] [place] [address] [place] Calcium [Mass/Vol] 8.7 mg/dL Normal 8.5-10.2 [facility] Comment on above: Order Comment: Speci men Type: BLOOD SPECIMEN Ordering Facility: [facility] Address: [address] [place] [address] Performed By: #### B HB, #### [facility] CLIA [id number] [address] [place] [address] [place] Chloride [Moles/Vol] 99 mmol/L Normal 97-105 [facility] Comment on above: Order Comment: Speci men Type: BLOOD SPECIMEN Ordering Facility: [facility] Address: [address] [place] [address] Performed By: #### B HB, #### [facility] CLIA [id number] [address] [place] [address] [place] CO2 [Moles/Vol] 19 mmol/L Low 22-30 [facility] Comment on above: Order Comment: Simonai reinier Type: BLOOD SPECIMEN Ordering Facility: [facility] Address: [address] [place] [address] Performed By: #### B HB, 07173-6 #### [facility] CLIA [id number] [address] [place] [address] [place] Creatinine [Mass/Vol] 2.15 mg/dL High 0.58-0.96 [facility] Comment on above: Order Comment: Simonai men Type: BLOOD SPECIMEN Ordering Facility: [facility] Address: [address] [place] [address] Performed By: #### B HB, 81862-9 #### [facility] CLIA [id number] [address] [place] [address] OF [facility] Creatinine and Glomerular filtration rate.predicted panel (S/P/Bld) 25 mL/min/1.73m??? Low >=60 [facility] Comment on above: Order Comment: Speci men Type: BLOOD SPECIMEN Ordering Facility: [facility] Address: [address] [place] [address] Result Comment: Donna mated Glomerular Filtration Rate [...] actual GFR. Performed By: #### B HB, 40323-8 #### [facility] CLIA [id number] [address] [place] [address] [place] Glucose [Mass/Vol] 428 mg/dL High 74-99 [facility] Comment on above: Order Comment: Simonai men Type: BLOOD SPECIMEN Ordering Facility: [facility] Address: [address] [place] [address] Result Comment: The [place] [employer] (ADA) provides guidance for cutoff [...] Standards of Medical Care in Diabetes 2016, [place] [employer]. Diabetes Care. 2016.39(Suppl 1). Performed By: #### B HB, 08061-8 #### [facility] CLIA [id number] [address] [place] [address] [place] Potassium [Moles/Vol] 5.2 mmol/L High 3.7-5.1 [facility] Comment on above: Order Comment: [place] Type: BLOOD SPECIMEN Ordering Facility: [facility] Address: [address] [place] [address] Performed By: #### B HB, 66206-6 #### [facility] CLIA [id number] [address] [place] [address] [place] Protein [Mass/Vol] 9.1 g/dL High 6.3-8.0 [facility] Comment on above: Order Comment: [place] Type: BLOOD SPECIMEN Ordering Facility: [facility] Address: [address] [place] [address] Performed By: #### B HB, 39103-8 #### [facility] CLIA [id number] [address] [place] [address] [place] Sodium [Moles/Vol] 130 mmol/L Low 136-144 [facility] Comment on above: Order Comment: [place] Type: BLOOD SPECIMEN Ordering Facility: [facility] Address: [address] [place] [address] Performed By: #### B HB, 80136-7 #### [facility] CLIA [id number] [address] [place] [address] [place] Urea nitrogen [Mass/Vol] 39 mg/dL High 7-21 [facility] Comment on above: Order Comment: Speci men Type: BLOOD SPECIMEN Ordering Facility: [facility] Address: [address] [place], [place] [address] [address] Performed By: #### B , 33435-5 #### [facility] CLIA [id number] [address] [place] [address] [place] ECG COMPLETEon 08-31-2023 ECG COMPLETE Ventricular Rate : 7 1 BPM Atrial Rate : 71 BPM P-R Interval : 166 ms QRS Duration : 80 ms Q-T Interval : 396 ms QTC Calculation(Bazett) : 431 ms Calculated P Romeo : 82 degrees Calculated R Romeo : 71 degrees Calculated T Romeo : 48 degrees Sinus rhythm Normal ECG NO STEMI. 0752 Confirmed by MD DE LEON MICHAEL ([id number]), technical editor THERESA SEAY ([id number]) on 08/31/2023 1:24:15 PM NAME : LIAMAISLINN PID : [id number] : 1960 Gender : Female Race : ORD : [id number] Procedure Date : Aug 31 2023 07:16:42 Edit Date : Aug 31 2023 13:24:16 Diagnosis: Sinus rhythm Normal ECG NO STEMI. 0752 Confirmed by MD DE LEON MICHAEL ([id number]), technical editor THERESA SEAY ([id number]) on 08/31/2023 1:24:15 PM Test Reason : Chest Pain Location : 402 : [facility] fved05 Overread By : MD DE LEON MICHAEL Edited By : THERESA SEAY Referred By : , Acquired by : [id number], Normal [facility] ECG COMPLETE Ventricular Rate : 8 8 BPM Atrial Rate : 88 BPM P-R Interval : 153 ms QRS Duration : 78 ms Q-T Interval : 370 ms QTC Calculation(Bazett) : 448 ms Calculated P Romeo : 85 degrees Calculated R Romeo : 69 degrees Calculated T Romeo : 62 degrees Sinus rhythm Normal ECG NO STEMI. 0604 Confirmed by KASIE SANDOVAL MD ([id number]), technical editor THERESA SEAY ([id number]) on 08/31/2023 1:02:55 PM NAME : LIAMAISLINN PID : [id number] : 1960 Gender : Female Race : ORD : [id number] Procedure Date : Aug 31 2023 04:17:52 Edit Date : Aug 31 2023 13:02:57 Diagnosis: Sinus rhythm Normal ECG NO STEMI. 0604 Confirmed by KASIE SANDOVAL MD ([id number]), technical editor THERESA SEAY ([id number]) on 08/31/2023 1:02:55 PM Test Reason : Arrhythmia Location : 402 : [facility] fved05 Overread By : KASIE SANDOVAL MD Edited By : THERESA SEAY Referred By : , Acquired by : [id number], Normal [facility] ED PROV NOTEon 08-31-2023 ED PROV NOTE HNO ID: [id number] Author: RAYNA RHODES PA-C Service: Emergency Medicine Author Type: Physician Data Integration Analyst Type: ED Provider Notes Filed: 08/31/2023 [...] left foot. Pt states she saw her service order clerk and was directed to come to the [...] rarely occurring (more content not included)... Normal [facility] FLUABV+SARS-CoV-2+RSV Pnl Re sp ADRIEL+probeon 08-31-2023 FLUABV+SARS-CoV-2+RS V Pnl Resp ADRIEL+probe COVID 19 RESULT: Not detected The method used is RT-PCR or an equivalent NAAT method. Reference Range(the expected result in uninfected individuals): Not detected INFLUENZA A PCR: Not detected INFLUENZA B PCR: Not detected RSV PCR: Not detected Normal [facility] Comment on above: Performed By: #### 9 5941-1 ####[facility] [id number] [place] [address] [place] Gas and Carbon monoxide pane l (BldV)on 08-31-2023 BASE DEFICIT, VENOUS -5 mmol/L Low -2-0 [facility] Comment on above: Order Comment: Speci men Type: VENOUS BLOOD SPECIMEN Ordering Facility: [facility] Address: [address] [place] [address] Performed By: #### 2 4344-4 #### [facility] CLIA [id number] [address] [place] [address] [place] Body temperature 100.04 [degF] Normal [facility] Comment on above: Order Comment: Speci men Type: VENOUS BLOOD SPECIMEN Ordering Facility: [facility] Address: [address] [place] [address] Performed By: #### 2 4344-4 #### [facility] CLIA [id number] [address] [place] [address] [place] Calcium.ionized (Bld) [Mass/Vol] 1.08 mmol/L Normal 1.08-1.30 [facility] Comment on above: Order Comment: Speci men Type: VENOUS BLOOD SPECIMEN Ordering Facility: [facility] Address: [address] [place] [address] Performed By: #### 2 4344-4 #### [facility] CLIA [id number] [address] [place] [address] [place] Calcium.ionized adjusted to pH 7.4 (BldA) [Moles/Vol] 1.06 mmol/L Low 1.08-1.30 [facility] Comment on above: Order Comment: Speci men Type: VENOUS BLOOD SPECIMEN Ordering Facility: [facility] Address: [address] [place] [address] Performed By: #### 2 4344-4 #### [facility] CLIA [id number] [address] [place] [address] [place] Carboxyhemoglobin (BldV) [Mass fraction] 3.8 % High 0.0-2.0 [facility] Comment on above: Order Comment: Speci men Type: VENOUS BLOOD SPECIMEN Ordering Facility: [facility] Address: [address] [place] [address] Result Comment: Carb oxyhemoglobin Reference Range for Smokers: 2.0-8.0% Performed By: #### 2 4344-4 #### [facility] CLIA [id number] [address] [place] [address] [place] Chloride [Moles/Vol] 106 mmol/L High 97-105 [facility] Comment on above: Order Comment: Speci men Type: VENOUS BLOOD SPECIMEN Ordering Facility: [facility] Address: [address] [place] [address] Performed By: #### 2 4344-4 #### [facility] CLIA [id number] [address] [place] [address] [place] CO2 (BldV) [Partial pressure] 35 mm[Hg] Low 42-55 [facility] Comment on above: Order Comment: Speci men Type: VENOUS BLOOD SPECIMEN Ordering Facility: [facility] Address: [address] [place] [address] Performed By: #### 2 4344-4 #### [facility] CLIA [id number] [address] [place] [address] [place] CO2 adjusted to patient's actual temperature (BldV) [Partial pressure] Normal [facility] Comment on above: Order Comment: Speci men Type: VENOUS BLOOD SPECIMEN Ordering Facility: [facility] Address: [address] [place] [address] Performed By: #### 2 4344-4 #### [facility] CLIA [id number] [address] [place] [address] [place] Glucose [Mass/Vol] 460 mg/dL High 60-105 [facility] Comment on above: Order Comment: Speci men Type: VENOUS BLOOD SPECIMEN Ordering Facility: [facility] Address: [address] [place] [address] Performed By: #### 2 4344-4 #### [facility] CLIA [id number] [address] [place] [address] [place] HCO3 (Bld) [Moles/Vol] 19 mmol/L Low 24-28 [facility] Comment on above: Order Comment: Speci men Type: VENOUS BLOOD SPECIMEN Ordering Facility: [facility] Address: [address] [place] [address] Performed By: #### 2 4344-4 #### [facility] CLIA [id number] [address] [place] [address] [place] Hematocrit (Bld) [Volume fraction] 29.7 % Low 36.0-46.0 [facility] Comment on above: Order Comment: Speci men Type: VENOUS BLOOD SPECIMEN Ordering Facility: [facility] Address: [address] [place] [address] Performed By: #### 2 4344-4 #### [facility] CLIA [id number] [address] [place] [address] [place] Hemoglobin (Bld) [Mass/Vol] 9.6 g/dL Low 11.5-15.5 [facility] Comment on above: Order Comment: Speci men Type: VENOUS BLOOD SPECIMEN Ordering Facility: [facility] Address: [address] [place] [address] Performed By: #### 2 4344-4 #### [facility] CLIA [id number] [address] [place] [address] [place] Lactate [Moles/Vol] 1.1 mmol/L Normal 0.5-2.2 [facility] Comment on above: Order Comment: Speci men Type: VENOUS BLOOD SPECIMEN Ordering Facility: [facility] Address: [address] [place] [address] Performed By: #### 2 4344-4 #### [facility] IA [id number] [address] [place] [address] [place] Methemoglobin (Bld) [Mass fraction] 1.1 % Normal 0.0-1.5 [facility] Comment on above: Order Comment: Speci men Type: VENOUS BLOOD SPECIMEN Ordering Facility: [facility] Address: [address] [place] [address] Performed By: #### 2 4344-4 #### [facility] CLIA [id number] [address] [place] [address] [place] O2 THERAPY RA=Room Air Normal [facility] Comment on above: Order Comment: Speci men Type: VENOUS BLOOD SPECIMEN Ordering Facility: [facility] Address: [address] [place] [address] Performed By: #### 2 4344-4 #### [facility] CLIA [id number] [address] [place] [address] [place] Oxygen (BldV) [Partial pressure] 118 mm[Hg] High 35-45 [facility] Comment on above: Order Comment: Speci men Type: VENOUS BLOOD SPECIMEN Ordering Facility: [facility] Address: [address] [place] [address] Performed By: #### 2 4344-4 #### [facility] CLIA [id number] [address] [place] [address] [place] Oxygen adjusted to patient's actual temperature (BldV) [Partial pressure] Normal [facility] Comment on above: Order Comment: Speci men Type: VENOUS BLOOD SPECIMEN Ordering Facility: [facility] Address: [address] [place] [address] Performed By: #### 2 4344-4 #### [facility] CLIA [id number] [address] [place] [address] [place] Oxygen saturation in Venous blood 99 % High 60-85 [facility] Comment on above: Order Comment: Speci men Type: VENOUS BLOOD SPECIMEN Ordering Facility: [facility] Address: [address] [place] [address] Performed By: #### 2 4344-4 #### [facility] CLIA [id number] [address] [place] [address] [place] Oxyhemoglobin (BldV) [Mass fraction] 94 % High 60-85 [facility] Comment on above: Order Comment: Speci men Type: VENOUS BLOOD SPECIMEN Ordering Facility: [facility] Address: [address] [place] [address] Performed By: #### 2 4344-4 #### [facility] CLIA [id number] [address] [place] [address] [place] pH (BldV) 7.37 [pH] Normal 7.32-7.42 [facility] Comment on above: Order Comment: Speci men Type: VENOUS BLOOD SPECIMEN Ordering Facility: [facility] Address: [address] [place] [address] Performed By: #### 2 4344-4 #### [facility] CLIA [id number] [address] [place] [address] [place] pH adjusted to patient's actual temperature (BldV) Normal [facility] Comment on above: Order Comment: Speci men Type: VENOUS BLOOD SPECIMEN Ordering Facility: [facility] Address: [address] [place] [address] Performed By: #### 2 4344-4 #### [facility] CLIA [id number] [address] [place] [address] [place] Potassium [Moles/Vol] 5.3 mmol/L High 3.5-5.0 [facility] Comment on above: Order Comment: Speci men Type: VENOUS BLOOD SPECIMEN Ordering Facility: [facility] Address: [address] [place] [address] Performed By: #### 2 4344-4 #### [facility] CLIA [id number] [place] [address] [place] Sodium [Moles/Vol] 133 mmol/L Low 136-144 [facility] Comment on above: Order Comment: Speci men Type: VENOUS BLOOD SPECIMEN Ordering Facility: [facility] Address: [address] [place] [address] Performed By: #### 2 4344-4 #### [facility] CLIA [id number] [address] [place] [address] [place] HISTORY PHYSICALon HISTORY PHYSICAL HNO ID: [id number] Author: ANTHONY BARROW MD Service: Hospital Medicine [...] left foot ulcer that patient was seen service order clerk as outpatient for and advised her to [...] AST -- 7* ANION -- 12 Assessment/Plan NAATOLIY (acute kidney injury)/ mild hyperkalemia /pseudohyponatremia most [...] to monitor. Medication and Non-Pharmacologic VTE Prophylaxis/Anticoagula [facility] 08/31/23 1115 activity - mobilize patient ([place]) VTE Prophylaxis: VTE prophylaxis appropriate SIGNATURE: Anthony Barrow MD PATIENT NAME: Aislinn Wheeler DATE: August 31, 2023 TIME: 11:03 AM PAGER/CONTACT #: Normal [facility] KETONES/ACETONE/BHBon 2023 Beta hydroxybutyrate [Moles/Vol] 0.50 mmol/L High <0.28 [facility] Comment on above: Order Comment: [place] Type: BLOOD SPECIMEN Ordering Facility: [facility] Address: [address] [place] [address] Performed By: #### [place], [address]-0 #### [facility] CLIA [id number] [address] [place] [address] [place] POTASSIUM BLDon 08-31-2023 Potassium [Moles/Vol] 4.6 mmol/L Normal 3.7-5.1 [facility] Comment on above: Order Comment: [place] Type: BLOOD SPECIMEN Ordering Facility: [facility] Address: [address] [place] [address] Performed By: #### B HB, #### [facility] CLIA [id number] [address] [place] [address] [place] SEPSIS LACTATEon 08-31-2023 Lactate [Moles/Vol] 1.2 mmol/L Normal 0.0-2.0 [facility] Comment on above: Order Comment: Speci men Type: BLOOD SPECIMEN Ordering Facility: [facility] Address: [address] [place] [address] Performed By: #### B HB, #### [facility] CLIA [id number] [address] [place] [address] [place] Urinalysis complete panel (U )on 08-31-2023 Bacteria LM.HPF (Urine sed) [#/Area] Many Abnormal None Seen [facility] Comment on above: Order Comment: Speci men Type: BLOOD SPECIMEN Ordering Facility: [facility] Address: [address] [place] [address] Performed By: #### B HB, #### [facility] CLIA [id number] [address] [place] [address] [place] Bilirubin Ql (U) Negative Normal Negative [facility] Comment on above: Order Comment: Speci men Type: BLOOD SPECIMEN Ordering Facility: [facility] Address: [address] [place] [address] Performed By: #### Kimberlyn HB, #### [facility] CLIA [id number] [address] [place] [address] [place] Clarity (Unsp spec) Turbid Abnormal Clear [facility] Comment on above: Order Comment: Speci men Type: BLOOD SPECIMEN Ordering Facility: [facility] Address: [address] [place] [address] Performed By: #### B HB, #### [facility] CLIA [id number] [address] [place] [address] Color (U) Light Yellow Normal Yellow [facility] Comment on above: Order Comment: Speci men Type: BLOOD SPECIMEN Ordering Facility: [facility] Address: [address] [place] [address] Performed By: #### B HB, #### [facility] CLIA [id number] [address] [place] [address] Glucose Test strip (U) [Mass/Vol] 4+ Abnormal Trace, Negative [facility] Comment on above: Order Comment: Speci men Type: BLOOD SPECIMEN Ordering Facility: [facility] Address: [address] [place] [address] Performed By: #### B HB, #### [facility] CLIA [id number] [address] [place] [address] [place] Hemoglobin Ql (U) Trace Normal Negative, Trace [facility] Comment on above: Order Comment: Speci men Type: BLOOD SPECIMEN Ordering Facility: [facility] Address: [address] [place] [address] Performed By: #### B HB, #### [facility] CLIA [id number] [address] [place] [address] [place] Ketones Ql (U) Negative Normal Negative, Trace [facility] Comment on above: Order Comment: Speci men Type: BLOOD SPECIMEN Ordering Facility: [facility] Address: [address] [place] [address] Performed By: #### B HB, #### [facility] CLIA [id number] [address] [place] [address] Leukocyte esterase Test strip Ql (U) 500 Yuan/uL Abnormal Negative, 25 Yuan/uL [facility] Comment on above: Order Comment: Speci men Type: BLOOD SPECIMEN Ordering Facility: [facility] Address: [address] [place] [address] Performed By: #### B HB, #### [facility] CLIA [id number] [address] [place] [address] [place] Nitrite Ql (U) Negative Normal Negative [facility] Comment on above: Order Comment: Speci men Type: BLOOD SPECIMEN Ordering Facility: [facility] Address: [address] [place] [address] Performed By: #### B HB, #### [facility] CLIA [id number] [address] [place] [address] [place] pH (U) 6.0 [pH] Normal 5.0-8.0 [facility] Comment on above: Order Comment: Speci men Type: BLOOD SPECIMEN Ordering Facility: [facility] Address: [address] [place] [address] Performed By: #### B HB, #### [facility] CLIA [id number] [address] [place] [address] [place] Protein (U) [Mass/Vol] 1+ Abnormal Trace, Negative [facility] Comment on above: Order Comment: Speci men Type: BLOOD SPECIMEN Ordering Facility: [facility] Address: [address] [place] [address] Performed By: #### Kimberlyn HB, #### [facility] CLIA [id number] [address] [place] [address] [place] RBC LM.HPF (Urine sed) [#/Area] 3-5 /HPF Abnormal 0-3 /HPF [facility] Comment on above: Order Comment: Speci men Type: BLOOD SPECIMEN Ordering Facility: [facility] Address: [address] [place] [address] Performed By: #### B HB, #### [facility] CLIA [id number] [address] [place] [address] [place] Specific gravity (U) [Rel density] 1.017 Normal 1.005-1.030 [facility] Comment on above: Order Comment: Speci men Type: BLOOD SPECIMEN Ordering Facility[facility] Address: [address] [place] [address] Performed By: #### B HB, #### [facility] CLIA [id number] [address] [place] [address] [place] Urobilinogen Ql (U) Negative Normal Negative [facility] Comment on above: Order Comment: Speci men Type: BLOOD SPECIMEN Ordering Facility: [facility] Address: [address] [place] [address] Performed By: #### B HB, #### [facility] CLIA [id number] [address] [place] [address] [place] WBC LM.HPF (Urine sed) [#/Area] /[HPF] Abnormal 0-5 /HPF [facility] Comment on above: Order Comment: Speci men Type: BLOOD SPECIMEN Ordering Facility: [facility] Address: [address] [place] [address] Performed By: #### B HB, 43509-0 #### [facility] CLIA [id number] [address] [place] [id number] [place] XR CHEST 1V [...] Fatigue and malaise, Fatigue and malaise (accession [id number]), Osteomyelitis (accession [id number]) MQ: XC1_5 Comparison: CT 01/17/2021, radiograph 01/17/2021 [...] performed for increased sensitivity, as clinically warranted. 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 Performed By: #### 1 4316-4 #### [facility] ([id number]) [address] [place] [address] CCL GENERIC ORDERon 08-09-20 TEST NAME UQNTPP URINE PAIN PA VEGA QUANT Normal [facility] Comment on above: Result Comment: Wesley ected on 08/09 AT 1743: Previously reported as UQNTPP Performed By: #### C GO #### [facility] ([id number]) [address] [place] [address] TEST RESULT See Below Normal [facility] Comment on above: Result Comment: NOTE TEST RESULT FLAG UNIT REF.RANGE ----- Specimen Validity Quality See below Specimen quality results within acceptable limits Specimen Validity Creatinine 31.8 mg/dL 20.0-300.0 Specimen Validity PH 5.4 4.5-8.0 Specimen Validity Specific [place] 1.006 1.003-1.035 Specimen Validity Oxidants <38 mg/L [...] carboxylic acid (THCA) is a metabolite of qqajb-6-hwqnalaravuswizfdxbb which is the main active component of marijuana. Fentanyl, Urine <6 ng/mL <6 Buprenorphine, Ur <20 ng/mL <20 Methadone Urine <16 ng/mL <16 Methadone metabolite Urine <6 ng/mL <6 EDDP is a metabolite of methadone. Note See Below This test is for medical use only. This test was developed and its performance characteristics determined by [facility]'s Taurus Melendrez [facility] Pathology and Laboratory Medicine [place] ([facility]). It has not been cleared or approved by the FDA. [facility] is regulated under CLIA as qualified to perform high-complexity testing. This test is used for clinical purposes. It should not be regarded as investigational or for research. URINE PAIN PANEL QUANT Test Performed By: [facility] [address] [place] [address] Digital Media Buyer: Jeyson Linares III #[id number] Performed By: #### C GO #### [facility] ([id number]) [address] [facility], [place] [address] Operative Reporton Operative Report [id number]#1.00T IFF Normal [facility] Pathology Noteon 08-07-2023 Pathology Note [id number]#1.00 TIFF Normal [facility] ED Note-Physicianon 06-29-20 23 ED Note-Physician [id number]#1.00T IFF Normal [facility] Patient Letter FTMCon 2022 Patient Letter [facility] (Inserted Image. Grecia ble to display) June 28, 2023 AISLINN WHEELER [address] [place] [id number] : 1960 Dear Aislinn, You missed your [...] future cancellations. Sincerely, [facility] [address] [facility], [place] [address] Pt called and RS'd. Normal [facility] Basic metabolic 2000 panelon 06-23-2023 Anion gap [Moles/Vol] 9 mmol/L Normal 05-08 [facility] Comment on above: Order Comment: Speci men Type: BLOOD SPECIMEN Ordering Facility[facility] Address: [address] [place] [address] Performed By: #### B HB, #### [facility] CLIA [id number] [address] [place] [address] [place] Calcium [Mass/Vol] 7.3 mg/dL Low 8.5-10.2 [facility] Comment on above: Order Comment: Speci men Type: BLOOD SPECIMEN Ordering Facility: [facility] Address: [address] [place] [address] Performed By: #### B HB, #### [facility] CLIA [id number] [address] [place] [address] [place] Chloride [Moles/Vol] 110 mmol/L High 97-105 [facility] Comment on above: Order Comment: Speci men Type: BLOOD SPECIMEN Ordering Facility: [facility] Address: [address] [place] [address] Performed By: #### B HB, #### [facility] CLIA [id number] [address] [place] [address] [place] CO2 [Moles/Vol] 19 mmol/L Low 22-30 [facility] Comment on above: Order Comment: Speci men Type: BLOOD SPECIMEN Ordering Facility: [facility] Address: [address] [place] [address] Performed By: #### B HB, #### [facility] CLIA [id number] [address] [place] [address] [place] Creatinine [Mass/Vol] 1.39 mg/dL High 0.58-0.96 [facility] Comment on above: Order Comment: Speci men Type: BLOOD SPECIMEN Ordering Facility: [facility] Address: [address] [place] [address] Performed By: #### B HB, #### [facility] CLIA [id number] [address] [place] [address] [place] Creatinine and Glomerular filtration rate.predicted panel (S/P/Bld) 42 mL/min/1.73m??? Low >=60 [facility] Comment on above: Order Comment: [place] Type: BLOOD SPECIMEN Ordering Facility: [facility] Address: [address] [place] [address] Result Comment: Donna mated Glomerular Filtration Rate [...] actual GFR. Performed By: #### B [place], 57809-8 #### [facility] CLIA [id number] [address] [place] [address] [place] Glucose [Mass/Vol] 157 mg/dL High 74-99 [facility] Comment on above: Order Comment: [place] Type: BLOOD SPECIMEN Ordering Facility: [facility] Address: [address] [place] [address] Result Comment: The [place] [employer] (ADA) provides guidance for cutoff [...] Standards of Medical Care in Diabetes 2016, [place] [employer]. Diabetes Care. 2016.39(Suppl 1). Performed By: #### B [place], 67291-0 #### [facility] CLIA [id number] [address] [place] [address] [place] Potassium [Moles/Vol] 5.1 mmol/L Normal 3.7-5.1 [facility] Comment on above: Order Comment: [place] Type: BLOOD SPECIMEN Ordering Facility: [facility] Address: [address] [place] [address] Performed By: #### B HB, 14026-2 #### [facility] CLIA [id number] [address] [place] [address] [place] Sodium [Moles/Vol] 138 mmol/L Normal 136-144 [facility] Comment on above: Order Comment: Speci men Type: BLOOD SPECIMEN Ordering Facility[facility] Address: [address] [place] [address] Performed By: #### B HB, 80664-4 #### [facility] CLIA [id number] [address] [place] [address] [place] Urea nitrogen [Mass/Vol] 21 mg/dL Normal 7-21 [facility] Comment on above: Order Comment: Speci men Type: BLOOD SPECIMEN Ordering Facility[facility] Address: [address] [place] [address] Performed By: #### B HB, 40272-1 #### [facility] CLIA [id number] [address] [place] [address] [place] CBC panel Auto (Bld)on 06-23 Erythrocyte distribution width (RBC) [Ratio] 14.4 % Normal 11.5-15.0 [facility] Comment on above: Order Comment: Speci men Type: BLOOD SPECIMEN Ordering Facility: [facility] Address: [address] [place] [address] Performed By: #### B HB, 39226-1 #### [facility] CLIA [id number] [address] [place] [address] OF [place] Hematocrit (Bld) [Volume fraction] 28.5 % Low 36.0-46.0 [facility] Comment on above: Order Comment: Speci men Type: BLOOD SPECIMEN Ordering Facility: [facility] Address: [address] [place] [address] Performed By: #### B HB, 25324-5 #### [facility] CLIA [id number] [address] [place] [address] [place] Hemoglobin (Bld) [Mass/Vol] 9.0 g/dL Low 11.5-15.5 [facility] Comment on above: Order Comment: Speci men Type: BLOOD SPECIMEN Ordering Facility: [facility] Address: [address] [place] [address] Performed By: #### B HB, #### [facility] CLIA [id number] [address] [place] [address] MCH (RBC) [Entitic mass] 25.2 pg Low 26.0-34.0 [facility] Comment on above: Order Comment: Speci men Type: BLOOD SPECIMEN Ordering Facility: [facility] Address: [address] [place] [address] Performed By: #### B HB, #### [facility] CLIA [id number] [address] [place] [address] MCHC (RBC) [Mass/Vol] 31.6 g/dL Normal 30.5-36.0 [facility] Comment on above: Order Comment: Speci men Type: BLOOD SPECIMEN Ordering Facility: [facility] Address: [address] [place] [address] Performed By: #### B HB, #### [facility] CLIA [id number] [address] [place] [address] [place] MCV (RBC) [Entitic vol] 79.8 fL Low 80.0-100.0 [facility] Comment on above: Order Comment: Speci men Type: BLOOD SPECIMEN Ordering Facility: [facility] Address: [address] [place] [address] Performed By: #### B HB, #### [facility] CLIA [id number] [address] [place] [address] [place] Nucleated RBC (Bld) [#/Vol] 10*3/uL Normal <0.01 [facility] Comment on above: Order Comment: Speci men Type: BLOOD SPECIMEN Ordering Facility[facility] Address: [address] [place] [address] Performed By: #### B HB, #### [facility] CLIA [id number] [address] [place] [address] [place] Platelet mean volume (Bld) [Entitic vol] 10.6 fL Normal 9.0-12.7 [facility] Comment on above: Order Comment: Speci men Type: BLOOD SPECIMEN Ordering Facility[facility] Address: [address] [place] [address] Performed By: #### B HB, 12045-6 #### [facility] CLIA [id number] [address] [place] [address] [place] Platelets (Bld) [#/Vol] 251 10*3/uL Normal 150-400 [facility] Comment on above: Order Comment: Speci men Type: BLOOD SPECIMEN [facility] Facility[facility] Address: [address] [place] [address] Performed By: #### B HB, 94001-2 #### [facility] CLIA [id number] [address] [place] [address] [place] RBC (Bld) [#/Vol] 3.57 10*6/uL Low 3.90-5.20 [facility] Comment on above: Order Comment: Speci men Type: BLOOD SPECIMEN Ordering Facility: [facility] Address: [address] [place] [address] Performed By: #### B HB, 74635-3 #### [facility] CLIA [id number] [address] [place] [address] [place] WBC (Bld) [#/Vol] 7.47 10*3/uL Normal 3.70-11.00 [facility] Comment on above: Order Comment: Speci men Type: BLOOD SPECIMEN Ordering Facility[facility] Address: [address] [place] [address] Performed By: #### B HB, 95634-8 #### [facility] CLIA [id number] [address] [place] [address] OF [place] CNDSon 06-23-2023 CNDS HNO ID: [id number] Author: Annie Martinez APRN.BEAUTY COUNSELOR Service: Urology Author Type: Nurse Practitioner Type: [...] this patient's care. Taurus Ballard MD [facility] [place] [phone] or [phone]) [facility] C O N F I D E N T I A L I N F O R M A T I O N ------ STANDARD [facility] DOCUMENT DISCHARGE SUMMARY Patient Name: Aislinn Wheeler [...] Your Medications These medications were sent to [facility] [address] [place] [address] Hours: Monday-Monday: 7am-7pm, Sat: 9am-1pm acetaminophen 325 mg tablet docusate sodium 100 mg capsule Future Appointments: No future appointments. Electronically SIGNED by Licensed Independent Practitioner: Annie Martinez APRN.[facility] NIECY Telephone ([facility]) AISLINN WHEELER ([id number]) 1960 F Date Time Provider Department 06/23/23 HEIDY GARCIA During your visit today, we recorded the following information about you: Heidy Garcia RN 06/23/2023 9:05 AM Signed Patient had left robotic partial nephrectomy by Dr. Ballard on 06/22/2023 Will call for surgical follow up once discharged Heidy Garcia RN 06/26/2023 10:45 AM Signed Patient phone number non functioning. Active in [place], will send message inquiring on how she's feeling post-operatively. Vonnie Wilder RN 06/27/2023 10:15 AM Signed Spoke with grand daughter, Lola, as this office is unable to reach patient for post op call. Lola reports, that patient's phone is turned off, and she does not know how to use [employer]. Lola reports that patient went to [place] [facility] due to excruciating pain -was given [...] Encounter Status:Closed by HEIDY GARCIA on 06/23/23 [facility] NURSING PROGon 06-23-2023 NURSING PROG HNO ID: [id number] Author: Sweta Cordova, RN Service: ? Author Type: Registered Nurse [...] Annie Martinez, awaiting PRN order of hydralazine. [facility] ANES POSTPROC EVALon 023 ANES POSTPROC EVAL HNO ID: [id number] Author: Rikki Jhaveri MD Service: Anesthesiology Author Type: Anesthesiologist Type: Anesthesia Postprocedure Evaluation Filed: 06/22/2023 2:18 PM Note Text: POST ANESTHESIA EVALUATION NOTE : 1960 Procedure Summary Date: 06/22/23 Room / Location: [place] [address]A / OR Anesthesia Start: 1107 Anesthesia Stop: [...] June 22, 2023 TIME: 2:18 PM CSN: [id number] [facility] ANES PRE-OPon 06-22-2023 ANES PRE-OP HNO ID: [id number] Author: Rikki Jhaveri MD Service: Anesthesiology Author [...] and consent discussed: yes. Patient / Responsible Libertarian agrees to proceed: yes Patient / Surrogate [...] SIGNATURE: Rikki Jhaveri MD PATIENT NAME: Aislinn DEJESUS: June 22, 2023 TIME: 9:54 AM CSN: [id number] Normal [facility] Basic metabolic 2000 panelon 06-22-2023 Anion gap [Moles/Vol] 7 mmol/L Low 9-18 [facility] Comment on above: Order Comment: Speci men Type: BLOOD SPECIMEN Ordering [facility] Address: [address] [place] [address] Performed By: #### 2 4321-2 #### [facility] CLIA [id number] [address] [place] [address] [place] Calcium [Mass/Vol] 7.5 mg/dL Low 8.5-10.2 [facility] Comment on above: Order Comment: Speci men Type: BLOOD SPECIMEN Ordering Facility[facility] Address: [address] [place] [address] Performed By: #### 2 4321-2 #### [facility] CLIA [id number] [address] [place] [address] [place] Chloride [Moles/Vol] 108 mmol/L High 97-105 [facility] Comment on above: Order Comment: Speci men Type: BLOOD SPECIMEN Ordering Facility[facility] Address: [address] [place] [address] Performed By: #### 2 4321-2 #### [facility] CLIA [id number] [address] [place] [address] [place] CO2 [Moles/Vol] 19 mmol/L Low 22-30 [facility] Comment on above: Order Comment: Speci men Type: BLOOD SPECIMEN Ordering Facility[facility] Address: [address] [place] [address] Performed By: #### 2 4321-2 #### [facility] CLIA [id number] [address] [place] [address] [place] Creatinine [Mass/Vol] 1.57 mg/dL High 0.58-0.96 [facility] Comment on above: Order Comment: Speci men Type: BLOOD SPECIMEN Ordering Facility[facility] Address: [address] [place] [address] Performed By: #### 2 4321-2 #### [facility] CLIA [id number] [address] [place] [address] [place] Creatinine and Glomerular filtration rate.predicted panel (S/P/Bld) 36 mL/min/1.73m??? Low >=60 [facility] Comment on above: Order Comment: [place] Type: BLOOD SPECIMEN Ordering Facility[facility] Address: [address] [place] [address] Result Comment: Donna mated Glomerular Filtration Rate [...] GFR. Performed By: #### 2 4321-2 #### [facility] CLIA [id number] [place] [address] [place] Glucose [Mass/Vol] 275 mg/dL High 74-99 [facility] Comment on above: Order Comment: [place] Type: BLOOD SPECIMEN Ordering Facility[facility] Address: [address] [place] [address] Result Comment: The [place] Diabetes Association (ADA) provides guidance for cutoff [...] Standards of Medical Care in Diabetes 2016, [place] [employer]. Diabetes Care. 2016.39(Suppl 1). Performed By: #### 2 4321-2 #### [facility] CLIA [id number] [address] [place] [address] [place] Potassium [Moles/Vol] 5.3 mmol/L High 3.7-5.1 [facility] Comment on above: Order Comment: Speci men Type: BLOOD SPECIMEN Ordering Facility: [facility] Address: [address] [place] [address] Performed By: #### 2 4321-2 #### [facility] CLIA [id number] [address] [place] [address] [place] Sodium [Moles/Vol] 134 mmol/L Low 136-144 [facility] Comment on above: Order Comment: Speci men Type: BLOOD SPECIMEN Ordering Facility[facility] Address: [address] [place] [address] Performed By: #### 2 4321-2 #### [facility] CLIA [id number] [address] [place] [address] [place] Urea nitrogen [Mass/Vol] 26 mg/dL High 7-21 [facility] Comment on above: Order Comment: Speci men Type: BLOOD SPECIMEN Ordering Facility: [facility] Address: [address] [place] [address] Performed By: #### 2 4321-2 #### [facility] CLIA [id number] [address] [place] [address] [place] CBC panel Auto (Bld)on 06-22 Erythrocyte distribution width (RBC) [Ratio] 14.3 % Normal 11.5-15.0 [facility] Comment on above: Order Comment: Speci men Type: BLOOD SPECIMEN Ordering Facility: [facility] Address: [address] [place] [address] Performed By: #### 5 8410-2 #### [facility] CLIA [id number] [address] [place] [address] [place] Hematocrit (Bld) [Volume fraction] 27.8 % Low 36.0-46.0 [facility] Comment on above: Order Comment: Speci men Type: BLOOD SPECIMEN Ordering Facility: [facility] Address: [address] [place] [address] Performed By: #### 5 8410-2 #### [facility] CLIA [id number] [address] [place] [address] [place] Hemoglobin (Bld) [Mass/Vol] 8.9 g/dL Low 11.5-15.5 [facility] Comment on above: Order Comment: Speci men Type: BLOOD SPECIMEN Ordering Facility[facility] Address: [address] [place] [address] Performed By: #### 5 8410-2 #### [facility] CLIA [id number] [address] [place] [address] [place] MCH (RBC) [Entitic mass] 25.3 pg Low 26.0-34.0 [facility] Comment on above: Order Comment: Speci men Type: BLOOD SPECIMEN Ordering Facility[facility] Address: [address] [place] [address] Performed By: #### 5 8410-2 #### [facility] CLIA [id number] [address] [place] [address] [place] MCHC (RBC) [Mass/Vol] 32.0 g/dL Normal 30.5-36.0 [facility] Comment on above: Order Comment: Speci men Type: BLOOD SPECIMEN Ordering Facility: [facility] Address: [address] [place] [address] Performed By: #### 5 8410-2 #### [facility] CLIA [id number] [address] [place] [address] [place] MCV (RBC) [Entitic vol] 79.0 fL Low 80.0-100.0 [facility] Comment on above: Order Comment: Speci men Type: BLOOD SPECIMEN Order[facility] Facility[facility] Address: [address] [place] [address] Performed By: #### 5 8410-2 #### [facility] CLIA [id number] [address] [place] [address] [place] Nucleated RBC (Bld) [#/Vol] 10*3/uL Normal <0.01 [facility] Comment on above: Order Comment: Speci men Type: BLOOD SPECIMEN Order[facility] Facility[facility] Address: [address] [place] [address] Performed By: #### 5 8410-2 #### [facility] CLIA [id number] [address] [place] [address] [place] Platelet mean volume (Bld) [Entitic vol] 10.8 fL Normal 9.0-12.7 [facility] Comment on above: Order Comment: Speci men Type: BLOOD SPECIMEN Order[facility] Facility[facility] Address: [address] [place] [address] Performed By: #### 5 8410-2 #### [facility] CLIA [id number] [address] [place] [address] [place] Platelets (Bld) [#/Vol] 230 10*3/uL Normal 150-400 [facility] Comment on above: Order Comment: Speci men Type: BLOOD SPECIMEN Order[facility] Facility[facility] Address: [address] [place] [address] Performed By: #### 5 8410-2 #### [facility] CLIA [id number] [address] [place] [address] [place] RBC (Bld) [#/Vol] 3.52 10*6/uL Low 3.90-5.20 [facility] Comment on above: Order Comment: Speci men Type: BLOOD SPECIMEN Order[facility] Facility[facility] Address: [address] [place] [address] Performed By: #### 5 8410-2 #### [facility] CLIA [id number] [address] [place] [address] [place] WBC (Bld) [#/Vol] 6.04 10*3/uL Normal 3.70-11.00 [facility] Comment on above: Order Comment: Speci men Type: BLOOD SPECIMEN Order[facility] Facility[facility] Address: [address] [place] [address] Performed By: #### 5 8410-2 #### [facility] CLIA [id number] [address] [place] [address] [place] NURSING PROGon 06-22-2023 NURSING PROG HNO ID: [id number] Author: Afia Lanier RN Service: Nursing Author Type: Registered Nurse Type: Nursing Progress Note Filed: 06/22/2023 5:56 PM Note Text: Transfer Note: PATIENT NAME: Aislinn Wheeler Patient Location: [place] [address]/ Room: [place] [address] Patient transferred into room/unit pk308 in stable condition. Actions taken: No futher actions taken at this time. Will continue to monitor and check with patient. [facility] NURSING PROG HNO ID: [id number] Author: Linda Nicholson RN Service: Nursing Author Type: Registered Nurse Type: Nursing Progress Note Filed: 06/22/2023 12:20 PM Note Text: pre-incision juan area noted to have redness and inflamed, prior to prepping and putting chaves in. [facility] NURSING PROG HNO ID: [id number] Author: Elva Joy RN Service: Nursing Author [...] (RECOMMENDATION): None Electronically Signed By: Elva Joy [facility] OPERATIVE NOon 06-22-2023 OPERATIVE NO HNO ID: [id number] Author: Taurus Ballard MD Service: Urology Author Type: Physician Type: Operative Report Filed: 06/22/2023 1:48 PM Note Text: OPERATIVE/PROCEDURE REPORT LOG ID: [id number] Surgery/Procedure Date: 06/22/2023 Incision/Procedure Start Time: 11:49 AM Incision Close/Procedure End Time: 1:55 PM Surgeon(s)/Proceduralis t(s) and Data Integration Analyst(s): Surgeon(s) and Role: * Taurus Ballard MD - Primary * Jeet De La Fuente MD - Resident - Assisting Physician Data Integration Analyst: Camden Rios PA-C; Alicia Harmon PA-C [...] superior to the umbilicus a 12 mm purchasing administrative assistant port was placed. At this point [...] a specimen bag out of the supraumbilical purchasing administrative assistant port. This port was closed with [...] None Drains: 10 flat JUAN drain, 16 Yakut Chaves catheter Complications: None Accidental Punctures/Lacerations: None I/primary surgeon/proceduralist performed the procedure with assistance. SIGNATURE: Taurus Ballard MD PATIENT NAME: Aislinn Wheeler DATE: June 22, 2023 TIME: 1:42 PM PAGER/CONTACT #: [facility] SURGICAL PATHOLOGYon 023 CASE REPORT Normal [facility] Comment on above: Order Comment: Speci men Type: BLOOD SPECIMEN Order[facility] Facility[facility] Address: [address] [place] [address] Result Comment: Surg [facility] Pathology Report Case: [id number] Authorizing Provider: Taurus Ballard MD Collected: 06/22/2023 01:38 PM Ordering Location: [facility] Received: 06/22/2023 03:16 PM Operating Room Pathologist: Barron Cheema MD Specimen: KIDNEY PARTIAL NEPHRECTOMY LEFT, left renal neoplasm Performed By: #### B , 19130-0 #### [facility] CLIA [id number] OF [facility] CLINICAL HISTORY [facility] Comment on above: Order Comment: [place] Type: BLOOD SPECIMEN Ordering Facility[facility] Address: [address] [place] [address] Result Comment: Pre- op diagnosis: 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 - 7.2 cm gross greatest dimension of tissue specimen (defer to clinical/imaging for overall lesion size). Performed By: #### B AMADO, 82807-0 #### [facility] CLIA [id number] [address] [place] [address] FINAL PERFORMING LAB [facility] Comment on above: Order Comment: [place] Type: BLOOD SPECIMEN Ordering Facility: [facility] Address: [address], [place] [address] Result Comment: Diag nostic interpretation performed at [facility], [address] [place] [address] CLIA# [id number] Digital Media Buyer: Oswald Munguia M.D. Performed By: #### Kimberlyn FISCHER, 03544-4 #### [facility] CLIA [id number] [address] [place] [address] OF [place] GROSS DESCRIPTION Normal [facility] Comment on above: Order Comment: Speci men Type: BLOOD SPECIMEN Order[facility] Facility[facility] Address: [address] [place] [address] Result Comment: Emre MCGRATH PARTIAL NEPHRECTOMY LEFT Received in formalin designated left renal neoplasm is a segment of chilel-purple membranous tissue which weighs 39 g and measures 7.2 x 5.5 x 3.5 cm. There is cautery present at the margin which is inked orange. The surfaces are smooth with no masses or papillations grossly appreciated. Sectioning does not reveal any masses. Manager Hi sections are submitted in 5 cassettes. BF June 23, 2023 9:00 AM Gross examination performed at [facility], [address] [place] [address] CLIA # [id number] Performed By: #### Kimberlyn FISCHER, 10967-9 #### [facility] CLIA [id number] [address] [place] [address] OF [facility] CNPOlivia 06-15-2023 CNPN [facility]phone [facility] AISLINN WHEELER ([id number]) 1960 F Date Time Provider Department 06/15/23 [...] Encounter Status:Closed by VONNIE WILDER on 06/15/23 [facility] 06-12-2023 [facility] Telephone ([facility]) AISLINN WHEEELR ([id number]) 1960 F Date Time Provider Department 06/12/23 [facility]IL[facility]ELASCO [facility] During your visit today, we recorded the following information about you: Liliana Velasco RN 06/12/2023 8:56 AM Signed Received call from RN at Dr. Sara Augustine ([phone]) office (endocrinology) regarding clearance for upcoming surgery [...] Sara Dai CNP received and scanned into [employer] (air taxi) to view. Allergies As of Date: 06/12/2023 [...] Encounter Status:Closed by LILIANA VELASCO on 06/12/23 [facility] C Urineon 06-10-2023 Bacteria identified Cx [...] Locations R1: This test was performed at: [facility], [address] [place] [address], [address]- , , [facility] Comment on above: Performed By: #### 2 [id number] #### [facility] [address] [place] [address] [facility] AISLINN WHEELER ([id number]) 1960 F Date Time Provider Department 06/09/23 TAURUS BALLARD During your visit today, we recorded the following information about you: Derik Fernandez 06/09/2023 3:31 PM Signed Lvm on patient's phone inquiring if she kept her early childhood education specialist appointment on 06/08 for clearance for her surgery on 06/22 Left message with office of Sara Augustine ([phone]) where patient's appointment was scheduled asking for [...] Encounter Status:Closed by DERIK FERNANDEZ on 06/09/23 [facility] Glucose - FINGER STICKon Glucose [Mass/Vol] 436 mg/dL [place] [facility] [place] 06-07-2023 NIECY Telephone ([facility]) AISLINN WHEELER ([id number]) 1960 F Date Time Provider Department 06/07/23 [...] to PCP Thank you Aaron Aguilar APRN.CNP [facility] Aaron Aguilar APRN.CNP 06/07/2023 8:26 AM Signed [...] June 12, 2023 12:49 PM Aaron Aguilar APRN.KIARA 06/13/2023 11:[address] Chao, Patient saw endocrinology at [facility] 06/08 and had medications adjusted. I called patient to see how BG levels have been but unable to reach. She has a follow up with endo 06/20 Can she proceed with surgery since she saw endo? Thank you Aaron Aguilar APRN.KIARA PACC Aaron Aguilar APRN.KIARA 06/15/2023 1:26 PM [...] of instructions above Thank you Aaron Aguilar APRN.BEAUTY COUNSELOR Anitra Sanchez RN 06/19/2023 9:07 AM Addendum I spoke with patient and instructions given to take at least 12 units of her Lantus the night prior to her scheduled surgery on 06/22/[address] Ballard. Patient stated she is not feeling well and has the following symptoms: whole body aches, chills, nausea, and fatigue. She is on her way to [facility]. Because patient is not feeling [...] with hyperglycemia (HCC) [E11.65] Order(s):CONSULT TO ENDOCRINOLOGY [2420] Order #: [id number]: 1 FUTURE Prescriptions as of 06/19/2023 - [...] hours as (more content not included)... Normal [facility] CBC W Auto Differential pane l (Bld)on 06-06-2023 Basophils (Bld) [#/Vol] 0.04 10*3/uL Normal <0.11 [facility] Comment on above: Order Comment: Speci men Type: BLOOD SPECIMENOrdering Facility: [facility] Address: [address] [place] [address] Performed By: #### 5 7021-8 ####[facility] LABCLIA [id number] [facility] [id number] [id number] [place] Basophils/100 WBC (Bld) 0.8 % Normal [facility] Comment on above: Order Comment: Speci men Type: BLOOD SPECIMENOrdering Facility: [facility] Address: [address] [place] [address] Performed By: #### 5 7021-8 ####[facility] LABCLIA [id number] [place] [address] [place] Differential cell count method Nom (Bld) Auto Normal [facility] Comment on above: Order Comment: Speci men Type: BLOOD SPECIMENOrdering Facility: [facility] Address: [address] [place] [address] Performed By: #### 5 7021-8 ####[facility] LABCLIA [id number] [place] [address] [place] Eosinophils (Bld) [#/Vol] 0.15 10*3/uL Normal <0.46 [facility] Comment on above: Order Comment: Speci men Type: BLOOD SPECIMENOrdering Facility: [facility] Address: [address] [place] [address] Performed By: #### 5 7021-8 ####[facility] [facility] LABCLIA [id number] [place] [address] [place] Eosinophils/100 WBC (Bld) 3.1 % Normal [facility] Comment on above: Order Comment: Speci men Type: BLOOD SPECIMENOrdering Facility: [facility] Address: [address] [place] [address] Performed By: #### 5 7021-8 ####[facility] LABCLIA [id number] [place] [address] [place] Erythrocyte distribution width (RBC) [Ratio] 14.7 % Normal 11.5-15.0 [facility] Comment on above: Order Comment: Speci men Type: BLOOD SPECIMENOrdering Facility: [facility] Address: [address] [place] [address] Performed By: #### 5 7021-8 ####[facility] LABCLIA [id number] [place] [address] [place] Hematocrit (Bld) [Volume fraction] 37.2 % Normal 36.0-46.0 [facility] Comment on above: Order Comment: Speci men Type: BLOOD SPECIMENOrdering Facility: [facility] Address: [address] [place] [address] Performed By: #### 5 7021-8 ####[facility] LABCLIA [id number] [place] [address] [place] Hemoglobin (Bld) [Mass/Vol] 11.9 g/dL Normal 11.5-15.5 [facility] Comment on above: Order Comment: Speci men Type: BLOOD SPECIMENOrdering Facility: [facility] Address: [address] [place] [address] Performed By: #### 5 7021-8 ####[facility] LABCLIA [id number] [place] [address] [place] Immature granulocytes (Bld) [#/Vol] 10*3/uL Normal <0.10 [facility] Comment on above: Order Comment: Speci men Type: BLOOD SPECIMENOrdering Facility: [facility] Address: [address] [place] [address] Performed By: #### 5 7021-8 ####[facility] LABIA [id number] [place] [address] [place] Immature granulocytes/100 WBC (Bld) 0.4 % Normal [facility] Comment on above: Order Comment: Speci men Type: BLOOD SPECIMENOrdering Facility: [facility] Address: [address] [place] [address] Performed By: #### 5 7021-8 ####[facility] LABCLIA [id number] [place] [address] [place] Lymphocytes (Bld) [#/Vol] 2.18 10*3/uL Normal 1.00-4.00 [facility] Comment on above: Order Comment: Speci men Type: BLOOD SPECIMENOrdering Facility: [facility] Address: [address] [place] [address] Performed By: #### 5 7021-8 ####[facility] LABCLIA [id number] [place] [address] [place] Lymphocytes/100 WBC (Bld) 44.7 % Normal [facility] Comment on above: Order Comment: Speci men Type: BLOOD SPECIMENOrdering Facility: [facility] Address: [address] [place] [address] Performed By: #### 5 7021-8 ####[facility] LABCLIA [id number] [place] [address] [place] MCH (RBC) [Entitic mass] 25.4 pg Low 26.0-34.0 [facility] Comment on above: Order Comment: Speci men Type: BLOOD SPECIMENOrdering Facility: [facility] Address: [address] [place] [address] Performed By: #### 5 7021-8 ####[facility] LABCLIA [id number] [place] [address] [place] MCHC (RBC) [Mass/Vol] 32.0 g/dL Normal 30.5-36.0 [facility] Comment on above: Order Comment: Speci men Type: BLOOD SPECIMENOrdering Facility: [facility] Address: [address] [place] [address] Performed By: #### 5 7021-8 ####[facility] LABCLIA [id number] [place] [address] [place] MCV (RBC) [Entitic vol] 79.5 fL Low 80.0-100.0 [facility] Comment on above: Order Comment: Speci men Type: BLOOD SPECIMENOrdering Facility: [facility] Address: [address] [place] [address] Performed By: #### 5 7021-8 ####[facility] LABCLIA [id number] [place] [address] [place] Monocytes (Bld) [#/Vol] 0.42 10*3/uL Normal <0.87 [facility] Comment on above: Order Comment: Speci men Type: BLOOD SPECIMENOrdering Facility: [facility] Address: [address] [place] [address] Performed By: #### 5 7021-8 ####[facility] LABCLIA [id number] [place] [address] [place] Monocytes/100 WBC (Bld) 8.6 % Normal [facility] Comment on above: Order Comment: Speci men Type: BLOOD SPECIMENOrdering Facility: [facility] Address: [address] [place] [address] Performed By: #### 5 7021-8 ####[facility] LABCLIA [id number] [place] [address] [place] Neutrophils (Bld) [#/Vol] 2.07 10*3/uL Normal 1.45-7.50 [facility] Comment on above: Order Comment: Speci men Type: BLOOD SPECIMENOrdering Facility: [facility] Address: [address] [place] [address] Performed By: #### 5 7021-8 ####[facility] LABCLIA [id number] [place] [address] [place] Neutrophils/100 WBC (Bld) 42.4 % Normal [facility] Comment on above: Order Comment: Speci men Type: BLOOD SPECIMENOrdering Facility: [facility] Address: [address] [place] [address] Performed By: #### 5 7021-8 ####[facility] LABCLIA [id number] [place] [address] [place] Nucleated RBC (Bld) [#/Vol] 10*3/uL Normal <0.01 [facility] Comment on above: Order Comment: Speci men Type: BLOOD SPECIMENOrdering Facility: [facility] Address: [address] [place] [address] Performed By: #### 5 7021-8 ####[facility] LABCLIA [id number] [place] [address] [place] Nucleated RBC/100 WBC (Bld) [Ratio] 0.0 /100 WBC Normal [facility] Comment on above: Order Comment: Speci men Type: BLOOD SPECIMENOrdering Facility: [facility] Address: [address] [place] [address] Performed By: #### 5 7021-8 ####[facility] LABCLIA [id number] [place] [address] [place] Platelet mean volume (Bld) [Entitic vol] 11.5 fL Normal 9.0-12.7 [facility] Comment on above: Order Comment: Speci men Type: BLOOD SPECIMENOrdering Facility: [facility] Address: [address] [place] [address] Performed By: #### 5 7021-8 ####[facility] LABCLIA [id number] [place] [address] [place] Platelets (Bld) [#/Vol] 230 10*3/uL Normal 150-400 [facility] Comment on above: Order Comment: Speci men Type: BLOOD SPECIMENOrdering Facility: [facility] Address: [address] [place] [address] Performed By: #### 5 7021-8 ####[facility] LABCLIA [id number] [place] [address] [place] RBC (Bld) [#/Vol] 4.68 10*6/uL Normal 3.90-5.20 [facility] Comment on above: Order Comment: Speci men Type: BLOOD SPECIMENOrdering Facility: [facility] Address: [address] [place] [address] Performed By: #### 5 7021-8 ####[facility] LABCLIA [id number] [place] [address] [place] WBC (Bld) [#/Vol] 4.88 10*3/uL Normal 3.70-11.00 [facility] Comment on above: Order Comment: Speci men Type: BLOOD SPECIMENOrdering Facility: [facility] Address: [address] [place] [address] Performed By: #### 5 7021-8 ####[facility] LABCLIA [id number] [address] [address] [place] Comprehensive metabolic 2000 panelon 06-06-2023 Albumin [Mass/Vol] 3.8 g/dL Low 3.9-4.9 [facility] Comment on above: Order Comment: Speci men Type: BLOOD SPECIMENOrdering Facility: [facility] Address: [address] [place] [address] Performed By: #### 2 4323-8 ####[facility] LABCLIA [id number] [place] [address] [place] ALP [Catalytic activity/Vol] 115 U/L Normal 34-123 [facility] Comment on above: Order Comment: Speci men Type: BLOOD SPECIMENOrdering Facility: [facility] Address: [address] [place] [address] Performed By: #### 2 4323-8 ####[facility] LABCLIA [id number] [place] [address] [place] ALT [Catalytic activity/Vol] 11 U/L Normal 7-38 [facility] Comment on above: Order Comment: Speci men Type: BLOOD SPECIMENOrdering Facility: [facility] Address: [address] [place] [address] Performed By: #### 2 4323-8 ####[facility] LABCLIA [id number] [address] [address] [place] Anion gap [Moles/Vol] 11 mmol/L Normal 9-18 [facility] Comment on above: Order Comment: Speci men Type: BLOOD SPECIMENOrdering Facility: [facility] Address: [address] [place] [id number] Performed By: #### 2 4323-8 ####[facility] LABCLIA [id number] [place] [address] [place] AST [Catalytic activity/Vol] 12 U/L Low 13-35 [facility] Comment on above: Order Comment: Speci men Type: BLOOD SPECIMENOrdering Facility: [facility] Address: [address] [place] [address] Performed By: #### 2 4323-8 ####[facility] LABCLIA [id number] [place] [address] [place] Bilirubin [Mass/Vol] 0.3 mg/dL Normal 0.2-1.3 [facility] Comment on above: Order Comment: Speci men Type: BLOOD SPECIMENOrdering Facility: [facility] Address: [address] [place] [address] Performed By: #### 2 4323-8 ####[facility] LABCLIA [id number] [place] [address] [place] Calcium [Mass/Vol] 8.9 mg/dL Normal 8.5-10.2 [facility] Comment on above: Order Comment: Speci men Type: BLOOD SPECIMENOrdering Facility: [facility] Address: [address] [place] [address] Performed By: #### 2 4323-8 ####[facility] LABCLIA [id number] [place] [address] [place] Chloride [Moles/Vol] 95 mmol/L Low 97-105 [facility] Comment on above: Order Comment: Speci men Type: BLOOD SPECIMENOrdering Facility: [facility] Address: [address] [place] [address] Performed By: #### 2 4323-8 ####[facility] LABCLIA [id number] [place] [address] [place] CO2 [Moles/Vol] 24 mmol/L Normal 22-30 [facility] Comment on above: Order Comment: Speci men Type: BLOOD SPECIMENOrdering Facility: [facility] Address: [address] [place] [id number] Performed By: #### 2 4323-8 ####[facility] LABCLIA [id number] [place] [address] [place] Creatinine [Mass/Vol] 1.81 mg/dL High 0.58-0.96 [facility] Comment on above: Order Comment: [place] Type: BLOOD SPECIMENOrdering Facility: [facility] Address: [address] [place] [address] Performed By: #### 2 4323-8 ####[facility] LABIA [id number] [place] [address] [place] Creatinine and Glomerular filtration rate.predicted panel (S/P/Bld) 31 mL/min/1.73m??? Low >=60 [facility] Comment on above: Order Comment: [place] Type: BLOOD SPECIMENOrdering Facility: [facility] Address: [address] [place] [address] Result Comment: Donna mated Glomerular Filtration Rate [...] actual GFR. Performed By: #### 2 4323-8 ####[facility] LABIA [id number] [place] [address] [place] Glucose [Mass/Vol] 510 mg/dL High 74-99 [facility] Comment on above: Order Comment: [place] Type: BLOOD SPECIMENOrdering Facility: [facility] Address: [address] [place] [address] Result Comment: The [place] Diabetes Association (ADA) provides guidance for cutoff [...] Standards of Medical Care in Diabetes 2016, [place] Diabetes Association. Diabetes Care. 2016.39(Suppl 1). Performed By: #### 2 4323-8 ####[facility] LABCLIA [id number] [place] [address] [place] Potassium [Moles/Vol] 5.9 mmol/L High 3.7-5.1 [facility] Comment on above: Order Comment: Speci men Type: BLOOD SPECIMENOrdering Facility: [facility] Address: [address] [place] [address] Performed By: #### 2 4323-8 ####[facility] LABCLIA [id number] [place] [address] [place] Protein [Mass/Vol] 8.2 g/dL High 6.3-8.0 [facility] Comment on above: Order Comment: Speci men Type: BLOOD SPECIMENOrdering Facility: [facility] Address: [address] [place] [address] Performed By: #### 2 4323-8 ####[facility] LABCLIA [id number] [place] [address] [place] Sodium [Moles/Vol] 130 mmol/L Low 136-144 [facility] Comment on above: Order Comment: Speci men Type: BLOOD SPECIMENOrdering Facility: [facility] Address: [address] [place] [address] Performed By: #### 2 4323-8 ####[facility] LABCLIA [id number] [place] [address] [place] Urea nitrogen [Mass/Vol] 36 mg/dL High 7-21 [facility] Comment on above: Order Comment: Speci men Type: BLOOD SPECIMENOrdering Facility: [facility] Address: [address] [place] [address] Performed By: #### 2 4323-8 ####[facility] LABCLIA [id number] [place] [address] [id number] [place] ECG COMPLETEon 06-06-2023 ECG COMPLETE Ventricular Rate : 7 6 BPM Atrial Rate : 76 BPM P-R Interval : 162 ms QRS Duration : 74 ms Q-T Interval : 402 ms QTC Calculation(Bazett) : 452 ms Calculated P Romeo : 48 degrees Calculated R Romeo : 43 degrees Calculated T Romeo : 53 degrees NORMAL SINUS RHYTHM POSSIBLE LEFT ATRIAL ENLARGEMENT BORDERLINE ECG Confirmed by AMANDA DAVID MD ([id number]) on 06/10/2023 4:44:16 PM NAME : AISLINN WHEELER PID : [id number] : 1960 Gender : Female Race : ORD : [id number] Procedure Date : Jun 06 2023 12:04:48 Edit Date : Jun 10 2023 16:44:21 Diagnosis: NORMAL SINUS RHYTHM POSSIBLE LEFT ATRIAL ENLARGEMENT BORDERLINE ECG Confirmed by AMANDA DAVID MD ([id number]) on 06/10/2023 4:44:16 PM Test Reason : Z01.818 [facility] examination [facility] : [facility] Over[facility] By : AMANDA DAVID MD Edited By : AMANDA DAVID MD Referred By : TAURUS BALLARD Acquired by : am, Normal [facility] HISTORY PHYSICALon HISTORY PHYSICAL HNO ID: [id number] Author: Aaron Aguilar APRN.BEAUTY COUNSELOR Service: ? 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 : See HPI GEAR NICKER: Negative for abnormal vaginal bleeding, abnormal vaginal [...] pupils equal, (more content not included)... Normal [facility] HbA1c (Bld)on 06-06-2023 Average glucose Estimated from glycated hemoglobin (Bld) [Mass/Vol] 335 mg/dL Normal [facility] Comment on above: Order Comment: Speci men Type: BLOOD SPECIMENOrdering Facility: [facility] Address: [address] [place] [address] Result Comment: eAG: (Estimated average glucose) is a calculated value from HgbA1c and is strategic partnership representative of the average blood glucose level in the last 2-3 month period. Performed By: #### 5 5454-3 ####[facility] LABCLIA [id number] [place] [address] [place] HbA1c (Bld) [Mass fraction] 13.3 % High 4.3-5.6 [facility] Comment on above: Order Comment: [place] Type: BLOOD SPECIMENOrdering Facility: [facility] Address: [address] [place] [address] Result Comment: [place] Diabetes Association guidelines indicate that patients with HgbA1c in the range 5.7-6.4% are at increased risk for development of diabetes, and intervention by lifestyle modification may be beneficial. HgbA1c greater or equal to 6.5% is considered diagnostic of diabetes. Performed By: #### 5 5454-3 ####[facility] LABCLIA [id number] [address] [place] PT panel Coag (PPP)on 2022 INR Coag (PPP) [Relative time] 1.0 {INR} Normal 0.9-1.3 [facility] Comment on above: Order Comment: [place] Type: BLOOD SPECIMENOrdering Facility: [facility] Address: [address] [place] [address] Result Comment: Laxmi min K Antagonist (VKA) Therapeutic Range: INR 2 to 3 (Target INR of 2.5) Note: For patients treated with VKA drugs, such as warfarin, the [place] [employer] 2012 Guideline recommends [...] Chest 2012, 141:7S-47S Eligio LEÓN et al. [facility] 2017, 70: 252-289 Performed By: #### 1 4979-9, 66259-8 ####[facility] LABCLIA [id number] [place] [address] [place] PT Coag (PPP) [Time] 10.1 s Normal 9.7-13.0 [facility] Comment on above: Order Comment: Speci men Type: BLOOD SPECIMENOrdering Facility: [facility] Address: [address] [place] [address] Performed By: #### 1 4979-9, 03545-4 ####[facility] LABCLIA [id number] [address] OF [facility] TYPE AND SCREEN,30 DAYon ABO B Normal [facility] Comment on above: Order Comment: Speci men Type: BLOOD SPECIMENOrdering Facility: [facility] Address: [address] [place] [address] Performed By: #### T SCR30 ####[facility] BLOOD BANKIA [id number] [address] [place] HISTORICAL AB SCR STATUS Negative Normal [facility] Comment on above: Order Comment: Speci men Type: BLOOD SPECIMENOrdering Facility: [facility] Address: [address] [place] [address] Performed By: #### T SCR30 ####[facility] BLOOD BANKCLIA [id number] [place] [address] [place] Rh Nom (Bld) Positive Normal [facility] Comment on above: Order Comment: Speci men Type: BLOOD SPECIMENOrdering Facility: [facility] Address: [address] [place] [address] Performed By: #### T SCR30 ####[facility] BLOOD BANKCLIA [id number] [place] [address] [place] aPTT PPPon 06-06-2023 aPTT Coag (PPP) [Time] 28.7 s Normal 23.0-32.4 [facility] Comment on above: Order Comment: Speci men Type: BLOOD SPECIMENOrdering Facility: [facility] Address: [address] [facility] [place] [address] Result Comment: Yeny en Plasma Aliquot Performed By: #### 1 4979-9, 40121-5 ####[facility] LABCLIA [id number] [facility] [id number] [place] Consent for Procedure/Surger yon 05-22-2023 Consent for Procedure/Surgery [id number]#[id number] 0CD:127 Normal [facility] Consent for Treatmenton Consent for Treatment [id number] D:127 Normal [facility] Inpatient Patient Summaryon 05-22-2023 Inpatient Patient Summary [place] [id number] Clinical Summary Person Information Name: AISLINN WHEELER Age: 63 Years : 1960 Sex: Female PCP: AGUSTO OLMSTEAD CNP Marital Status: Race: White Ethnicity: Non- or Language: Occitan Visit Id: Visit Reason: MIXED URINARY INCONTINENCE Speciality: Acuity: Enc Type: Outpatient Med Service: Surgery Arrival: 05/22/2023 09:41:57 Discharge: Dispo Type: Address: [address] [place] [address] [phone] Provider Notes: Diagnosis: Feeling of incomplete bladder [...] MD Follow up: With: Address: When: Lisa Vern [address] [place] [phone] Business (1) [facility] [address] [place] [address], [place] [address] [phone] Business (1) Comments: Office to schedule follow up in 1 month with PVR Patient Education Information: EU - Cystoscopy with Botox Injection Discharge Instructions (CUSTOM) [facility] IntraOperative Documentson 1 IntraOperative Documents [id number] 0CD:127 [facility] Main OR Intraoperative Recor don 05-22-2023 Main OR Intraoperative Record IntraOp Document Type FTURO Summary Primary Physician: Lisa Porras MD Finalized Date/Time: 05/22/23 11:29:32 Pt. Name: AISLINN WHEELER Pranay/Sex: 1960 Female Med Rec #: [id number] Physician: Lisa Porras MD Financial #: [id number] Pt. Type: O Room/Bed: / Admit/Disch: 05/22/23 09:41:57 - Institution: Case Times FTURO Entry 1 Patient Times In Room 05/22/23 11:15:00 Out Room 05/22/23 11:30:00 Procedure Times Start 05/22/23 11:22:00 Stop 05/22/23 11:26:00 Anesthesia Times Last Modified By: Katya LE, Marilee Feldman 05/22/23 11:26:29 General Comments: BOTOX 100 UNITS LOT#: [id number] , EXP DATE: 09/2025 -Jessica BLANCO RN Case Attendance FTURO Entry 1 Entry 2 Entry 3 Case Attendee Vern TAVERAS, Lisa Blanco RN, Marilee Solano CST, Cammie Feldman Role Performed Surgeon - Primary Head Of Academic Technology - Primary Scrub - Primary Time In [...] By: Marilee Blanco RN 05/22/23 11:29 Normal [facility] Main OR Preoperative Recordo n 05-22-2023 Main OR Preoperative Record Holding Area Document Type FTURO Summary Primary Physician: Lisa Porras MD Finalized Date/Time: 05/22/23 10:32:24 Pt. Name: AISLINN WHEELER Ashok /Sex: 1960 Female Med Rec #: [id number] Physician: Lisa Porras MD Financial #: [id number] Pt. Type: O Room/Bed: / Admit/Disch: 05/22/23 [...] By: Cammie Mcpherson RN 05/22/23 10:32 Normal [facility] Operative Reporton Operative Report Patient: BARBARA WHEELER Age: 63 years Sex: Female : 1960 Associated Diagnoses: None Author: Lisa Porras MD Procedure Operative Information Details: Date/ Time: 05/22/2023 11:29:00. Pre-Op Dx: Feeling of incomplete bladder emptying (UXV05-KM R39.14, Discharge, Medical), Mixed incontinence (MDT56-EJ N39.46, Discharge, Medical), Urinary leakage (ALC50-CH R32, Discharge, Medical). Post-Op Dx: Same. Anesthesia [...] to [facility] in the remote past). Normal [facility] Comment on above: Result Comment: Elec tronically Signed By: Lisa Porras MD\.br\Date and Time Signed: 05/22/23 11:30 EDT Outpatient Surgery Discharge Instructionon 05-22-2023 Outpatient Surgery Discharge Instruction [place] [address] Patient Discharge Instructions PERSON INFORMATION Name: AISLINN [...] With: Address: When: Lisa Porras [address] [place] [phone] Business (1) [address] [place], [place] [phone] Business (1) Comments: Office to schedule follow [...] Date You may receive a survey from [employer] asking you to rate your care experience. Your feedback is important and will help us understand what we do well and how we can improve the quality of care we provide to you, your loved ones and our community. It?s an honor to serve you. Thank you for choosing [facility] Normal [facility] Consultation Noteon 05-19-20 Consultation Note [id number] D:127 Normal [facility] A1C HEMOGLOBINon 05-18-2023 HbA1c (Bld) [Mass fraction] 14.0 % Row [place] [facility] AISLINN WHEELER ([id number]) 1960 F Date Time Provider Department 05/18/23 TAURUS BALLARD During your visit today, we recorded the following information about you: Agusto Faulkner 05/18/2023 1:01 PM Signed Consult notes sent back to Dr. Lisa Porras , phone [phone]. From Dr. Ballard office. Allergies As of [...] Encounter Status:Closed by DERIK FERNANDEZ on 06/09/23 [facility] Glucose - FINGER STICKon Glucose [Mass/Vol] 429 mg/dL Row [place] Other HbA1c (Bld) [Mass fraction]o n 05-18-2023 A1C HEMOGLOBIN [facility] Greetz Other CNOVon 05-17-2023 CNOV Office Visit (URFHR) AISLINN WHEELER ([id number]) 1960 F Date Time Provider Department 05/17/23 1:10 PM [facility] During your visit today, we recorded the following information about you: Temperature Pulse Blood pressure Weight 97.5 degrees 70/minute 172/81 60.1 kg Taurus Ballard MD 05/17/2023 1:35 PM Signed [facility] FOLLOW-UP PATIENT HISTORY AND PHYSICAL [...] 1.92 01/19/[address] scan (outside records) [facility] 09/28/21 IMPRESSION: Since the prior CT scan [...] other structures) (more content not included)... Normal [facility] C Urineon 05-13-2023 Bacteria identified [...] Locations R1: This test was performed at: [facility], [address] [place] [address], [address] , [place], Normal [facility] Comment on above: Performed By: #### 2 [id number] #### [facility] [address] [place] [address] Physician Referralon 023 Physician Referral [id number]#1.00CD :127 PATIENT IS SCHEDULED 05/17/2023 [facility] Consultation Noteon 05-04-20 23 Consultation Note [id number]#1.00CD :127 Normal [facility] Insurance Correspondenceon 0 05-04-2023 Insurance Correspondence [id number]#1.00 CD:127 Normal [facility] Urology Office/Clinic Noteon 05-04-2023 Urology Office/Clinic [...] mass on Kidney was not cancerous. However aircraft engine dismantler told her she has kidney cancer. Denies [...] PSH lap cholecystectomy, open hysterectomy -Continues with aircraft engine dismantler for CKD3 1. Renal cyst (N28.1: Cyst [...] pt to tertiary center, Dr. Ballard at [facility] for evaluation of robotic left cyst decortication -Pt states aircraft engine dismantler told her she has cancer. 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 Ordered: 98524 Measure Post Void residual urine and/or bladder capacity by US- non-imaging Urnls Dip Stick Auto w/o Microscopy POC 80610 2. Mixed incontinence (N39.46: Mixed incontinence) Pt [...] of Botox. (more content not included)... Normal [facility] Comment on above: Result Comment: Elec tronically Signed By: Lisa Porras MD\.br\Date and Time Signed: 05/04/23 14:11 EDT Ambulatory Visit Summaryon 0 05-03-2023 Ambulatory Visit Summary AISLINN WHEELER :1960 Visit Date:05/03/2023 Ambulatory Visit Instructions Your Diagnosis Renal mass Renal cyst Mixed incontinence Feeling of incomplete bladder emptying Glucosuria Tests Performed Urnls Dip Stick Auto w/o Microscopy POC 73436 Your Care Team Attending Physician - Lisa [...] Follow-Up Appointments Monday 12:30 PM EDT Where: [facility] Monday 10:30 AM EDT Where: [facility] You Need to Schedule the Following Appointments Follow Up with Vern TAVERAS, Lisa Montiel, URL, URO When: Comments: Sched Botox. Where: Medications What How Much When Instructions New cephalexin (Keflex 500 mg Cap) 1 Capsules By Mouth 2 times a day Duration: 3 Days Start one day prior to procedure Pickup at [facility] New estradiol topical (Estrace 0.1 mg/ g Cream) See instructions Refills: 3 apply pea size amount to urethra/ inner vagina 3x/ week x 1 month, then 2x/ week for maintainence Pickup at [facility] Unchanged trospium (trospium 20 mg oral [...] physician if questions or concerns Pharmacy Information [facility]: [address] [place], [place] [id number] [phone] Test Results Urnls Dip Stick Auto w/o Microscopy POC 82670 (05/03/2023) Bilirubin Urine Dipstick - Negative Blood Urine Dipstick - Trace-intact Glucose Urine Dipstick - 3+ 1000 mg/dl Ketones Urine Dipstick - Negative Leukocytes Urine Dipstick - Negative Nitrite Urine Dipstick - Negative Protein Urine Dipstick - Trace Specific [place] Urine Dipstick - 1.015 Urine Appearance Urine [...] are saf (more content not included)... Normal [facility] Patient Educationon 05-03-20 Patient Education Obstetrics [...] provider. Document Revised: 12/16/2021 Document Reviewed: 12/16/2021 [employer] Patient Education ? 2022 [employer] [facility] [place] 05-03-2023 Screens [id number]#1.00 CD:127 [facility] C Urineon 04-20-2023 Bacteria identified Cx [...] Locations R1: This test was performed at: [facility], [address] [place] [address], [facility]- , , [facility] Comment on above: Performed By: #### 2 [id number] ####[facility] [address] [place] [address] Ambulatory Visit Summaryon 0 04-18-2023 Ambulatory Visit [...] Lisa Porras MD Where: [facility] [place] 02-23-2023 Screens [id number] CD:127 [facility] Ambulatory Visit Summaryon 0 02-22-2023 Ambulatory Visit Summary AISLINN WHEELER :1960 Visit Date:02/22/2023 Ambulatory Visit Instructions Your Diagnosis Renal mass Renal cyst Mixed incontinence Feeling of incomplete bladder emptying Glucosuria Tests Performed Urnls Dip Stick Auto w/o Microscopy POC 18324 Your Care Team Attending Physician - Lisa [...] Lisa Porras MD Where: [facility] [place] Normal [facility] Patient Educationon 02-23-20 Patient Education Obstetrics [...] provider. Document Revised: 12/16/2021 Document Reviewed: 12/16/2021 [employer] Patient Education ? 2022 [employer] Fabio Zaragoza [facility] Urology Office/Clinic Noteon 02-22-2023 Urology Office/Clinic [...] PSH lap cholecystectomy, open hysterectomy -Continues with aircraft engine dismantler after referred last visit 1. Renal mass [...] stopped and the (more content not included)... [facility] Comment on above: Result Comment: Elec tronically Signed By: Vern TAVERAS, Lisa Montiel\.br\Date and Time Signed: 02/22/23 10:14 EDT\.br\Electronically Co-Signed By: Marilee Gray.br\Date and Time Co-Signed: 02/22/23 09:36 EDT Lab Reportson 02-20-2023 Lab Reports [id number]#1.00C D:127 [facility] RAD - CT Reporton 02-20-2023 RAD - CT Report [id number]#1.00CD :127 [facility] Physician Orderon 02-01-2023 Physician Order [id number]#1.00CD :127 [facility] Consultation Noteon 01-08-20 Consultation Note [id number]#1.00C D:127 Normal [facility] XR FOOT LT MIN 3 VIEWSon XR FOOT LT MIN 3 VIEWS Normal [facility] MG MAMM SCREEN 3D ALINE CADon 12-28-2022 MG MAMM SCREEN 3D ALINE CAD Normal [facility] XR DEXA BONE DENSITYon 12-28 XR DEXA BONE DENSITY Normal [facility] NM STRESS/REST MULTIon 12-15 NM STRESS/REST MULTI Normal [facility] XR FOOT LT MIN 3 VIEWSon XR FOOT LT MIN 3 VIEWS Normal [facility] Physician Referralon 023 Physician Referral [id number]#1.00C D:127 Normal [facility] CT FOOT LT WO CONon 10-28-19 CT FOOT LT WO CON Normal [facility] XR FOOT LT MIN 3 VIEWSon XR FOOT LT MIN 3 VIEWS Normal [facility] XR FOOT LT MIN 3 VIEWSon XR FOOT LT MIN 3 VIEWS Normal [facility] XR FOOT LT MIN 3 VIEWSon XR FOOT LT MIN 3 VIEWS Normal [facility] XR FOOT LT MIN 3 VIEWSon XR FOOT LT MIN 3 VIEWS Normal [facility] XR FOOT LT MIN 3 VIEWSon XR FOOT LT MIN 3 VIEWS Normal [facility] US KIDNEYSon 09-15-2022 US KIDNEYS Normal [facility] XR FOOT LT MIN 3 VIEWSon XR FOOT LT MIN 3 VIEWS Normal [facility] XR FOOT LT MIN 3 VIEWSon XR FOOT LT MIN 3 VIEWS Normal [facility] XR FOOT LT MIN 3 VIEWSon XR FOOT LT MIN 3 VIEWS Normal [facility] CBC AUTO DIFFon 08-03-2022 BASO # 0.0 103/ul Normal 0.0-0.1 [facility] Comment on above: Performed By: #### C BC ####[facility] [address] [place] [id number]. Ricardo Rocha Basophils/100 WBC (Bld) 0.5 % Normal 0.2-2.0 [facility] Comment on above: Performed By: #### C BC ####[facility] [address] [place] [id number]. Ricardo Rocha EO # 0.1 103/ul Normal 0.0-0.7 [facility] Comment on above: Performed By: #### C BC ####[facility] [address] [place], [place] [address]Dr. Ricardo Rocha Eosinophils/100 WBC (Bld) 1.2 % Normal 0.9-7.0 [facility] Comment on above: Performed By: #### C BC ####[facility] [address] [place], [place] [address]Dr. Ricardo Rocha Erythrocyte distribution width (RBC) [Ratio] 15.0 % Normal 11.0-15.0 [facility] Comment on above: Performed By: #### C BC ####[facility] [address] [place], [place] [address]Dr. Ricardo Rocha Hematocrit (Bld) [Volume fraction] 29.5 % Critically low 36.0-48.0 [facility] Comment on above: Performed By: #### C BC ####[facility] [address] [place] [phone]. Ricardo Rocha Hemoglobin (Bld) [Mass/Vol] 9.3 g/dL Critically low 12.0-16.0 [facility] Comment on above: Performed By: #### C BC ####[facility] [address]spe[address] [place] [id number]. Ricardo Rocha IG # 0.04 10e3/ul Critically high 0.00-0.03 [facility] Comment on above: Performed By: #### C BC ####[facility] [address] [place] [id number]. Ricardo Rocha IG % 0.5 % Normal 0.0-0.5 [facility] Comment on above: Performed By: #### C BC ####[facility] [address]av[address] [place] [phone]. Ricardo Rocha LYMPH # 1.4 103/ul Normal 1.2-3.8 [facility] Comment on above: Performed By: #### C BC ####[facility] [address] [place], [place] [address]Xk. Ricardo Rocha Lymphocytes/100 WBC (Bld) 17.2 % Critically low 20.5-60.0 [facility] Comment on above: Performed By: #### C BC ####[facility] [address]aw[address] [place] [id number]. Ricardo Rocha MANUAL DIFF REQ NO Normal [facility] Comment on above: Performed By: #### C BC ####[facility] Uc[address]iolocl[address] [place] [id number]. Ricardo Aj MCH (RBC) [Entitic mass] 25.2 pg Critically low 26.7-34.0 [facility] Comment on above: Performed By: #### C BC ####[facility] [address] [place] [id number]. Ricardo Rohca MCHC (RBC) [Mass/Vol] 31.5 g/dL Normal 29.9-35.2 [facility] Comment on above: Performed By: #### C BC ####[facility] [address]lynnt[address] [place] [id number]. Ricardo Rocha MCV (RBC) [Entitic vol] 79.9 fL Critically low 81.0-99.0 [facility] Comment on above: Performed By: #### C BC ####[facility] [address]kg[address] [place] [id number]. Ricardo Rocha MONO # 0.6 103/ul Normal 0.3-0.8 [facility] Comment on above: Performed By: #### C BC ####[facility] J[address]fcpr[address] [place] [id number]. Ricardo Aj Monocytes/100 WBC (Bld) 7.6 % Normal 1.7-12.0 [facility] Comment on above: Performed By: #### C BC ####[facility] [address] [place], [place] [address]Nv. Ricardo Rocha NEUT # 5.9 103/ul Normal 1.4-6.5 [facility] Comment on above: Performed By: #### C BC ####[facility] [address]hf27[address] [place], [place] [address]Ya. Ricardo Rocha Neutrophils/100 WBC (Bld) 73.0 % Normal 43.0-75.0 [facility] Comment on above: Performed By: #### C BC ####[facility] Xirks[address]eye350[address] [place] [id number]. Ricardo Rocha Platelet mean volume (Bld) [Entitic vol] 11.4 fL Normal 9.5-13.5 [facility] Comment on above: Performed By: #### C BC ####[facility] I[address]mc[address]gz[address] [place] [id number]. Ricardo Rocha PLT 253 103/ul Normal 150-450 [facility] Comment on above: Performed By: #### C BC ####[facility] Yy[address]fassk[address] [place] [id number]. Ricardo Rocha RBC 3.69 106/ul Critically low 4.20-5.40 [facility] Comment on above: Performed By: #### C BC ####[facility] F[address]zhsw[address] [place] [id number]. Ricardo Rocha WBC 8.0 103/ul Normal 4.0-11.0 [facility] Comment on above: Performed By: #### C BC ####[facility] [address]fh60[address] [place] [phone]. Ricardo Rocha CRPon 08-03-2022 CRP 3.1 mg/dL Critically high <=1.0 [facility] Comment on above: Performed By: #### C RP, BMP, URIC ####[facility] M[address]fs[address]xovf25[address] [place] [id number]. Ricardo Rocha CULTURE BLOODon 08-03-2022 Microscopic examination of blood, culture Culture Observations: NO GROWTH AT 5 DAYS. Normal [facility] Comment on above: Performed By: #### B LDCX2 ####[facility] [address] [place], [place] [address]Dr. Nanomarcial Aj Microscopic examination of blood, culture Culture Observations: NO GROWTH AT 5 DAYS. Normal [facility] Comment on above: Performed By: #### B LDCX1 ####[facility] [address]czbalfrv[address] [place], [place] [address]Dr. Nanomarcial Rocha ER URINE PROFILEon 2 Bilirubin Ql (U) Negative Normal NEGATIVE [facility] Comment on above: Performed By: #### E RUR ####[facility] Icn[address]ns[address] [place], [place] [address]Dr. Ricardo Rocha Clarity (U) CLEAR Normal CLEAR [facility] Comment on above: Performed By: #### E RUR ####[facility] Myr[address]iewvnf[address] [place], [place] [address]Dr. Nanolan Rocha Color (U) LT. YELLOW Normal YELLOW [facility] Comment on above: Performed By: #### E RUR ####[facility] [address] [place], [place] [address]Dr. Ricardo Rocha ERUAHD A micrscopic examination will be performed if indicated. Normal [facility] Comment on above: Performed By: #### E RUR ####[facility] [address]qej[address]ow[address] [place], [place] [address]Dr. Nanomarcial Rocha Glucose Ql (U) 100 mg/dl Abnormal NEGATIVE [facility] Comment on above: Performed By: #### E RUR ####[facility] F[address]xiudvuni[address] [place], [place] [address]Dr. Nanolan Rocha Hemoglobin Ql (U) Negative Normal NEGATIVE [facility] Comment on above: Performed By: #### E RUR ####[facility] Xu[address]esqcwzy[address] [place], [place] [address]Dr. Nanolan Rocha Ketones Ql (U) Negative Normal NEGATIVE [facility] Comment on above: Performed By: #### E RUR ####[facility] Dis[address]zwp[address] [place], [place] [address]Dr. Nanolan Rocha LEUKOCYTES Negative Normal NEGATIVE [facility] Comment on above: Performed By: #### E RUR ####[facility] [address] [place] [address]Dr. Ricardo Rocha Nitrite Ql (U) Negative Normal NEGATIVE [facility] Comment on above: Performed By: #### E RUR ####[facility] J[address]wqifyyn[address] [place] [address]Dr. Ricardo Rocha pH (U) 6.0 [pH] Normal 5-9 [facility] Comment on above: Performed By: #### E RUR ####[facility] [address] [place], [place] [address]Dr. Ricardo Rocha SPEC GRAVITY 1.010 Normal 1.005-<=1.02 5 [facility] Comment on above: Performed By: #### E RUR ####[facility] Oz[address]brngqfc[address] [place], [place] [address]Dr. Ricardo Rocha UA PROTEIN Negative Normal NEGATIVE/ TRACE [facility] Comment on above: Performed By: #### E RUR ####[facility] [address]jarqt[address] [place], [place] [address]Dr. Ricardo Rocha UR MICRO IND NOT INDICATED Normal [facility] Comment on above: Performed By: #### E RUR ####[facility] Myafehrwut[address] [place], [place] [address]Dr. Ricardo Rocha Urobilinogen Qn (U) 0.2 {Madeleine'U}/dL Normal 0.2 - 1. 0 [facility] Comment on above: Performed By: #### E RUR ####[facility] Duksurxxdo[address] [place], [place] [address]Dr. Ricardo Rocha LACTATE/LACTIC ACIDon 2021 Lactate [Moles/Vol] 0.5 mmol/L Normal 0.4-1.9 [facility] Comment on above: Performed By: #### L ACT ####[facility] [address] [place], [place] [address]Dr. Ricardo Rocha PROF CHEM 8 (BAS METB)on Anion gap [Moles/Vol] 12.9 mmol/L Normal [facility] Comment on above: Performed By: #### C RP, BMP, URIC ####[facility] [address]xp[address] [place] [address]Dr. Ricardo Rocha Calcium [Mass/Vol] 9.0 mg/dL Normal 8.5-10.1 [facility] Comment on above: Performed By: #### C RP, BMP, URIC ####[facility] [address]rm[address]acl[address] [place] [address]Dr. Ricardo Rocha Chloride [Moles/Vol] 102 mmol/L Normal 98-107 [facility] Comment on above: Performed By: #### C RP, BMP, URIC ####[facility] [address]yrqsit[address] [place] [address]Dr. Ricardo Rocha CO2 [Moles/Vol] 23.9 mmol/L Normal 21.0-32.0 [facility] Comment on above: Performed By: #### C RP, BMP, URIC ####[facility] [address] [place], [place] [address]Dr. Ricardo Rocha Creatinine [Mass/Vol] 1.36 mg/dL Critically high 0.55-1.02 [facility] Comment on above: Performed By: #### C RP, BMP, URIC ####[facility] Goounmicmr[address] [place], [place] [address]Dr. Ricardo Rocha EGFR-AF [place] 47 mL/min/1.73m2 Critically low >=60 [facility] Comment on above: Performed By: #### C RP, BMP, URIC ####[facility] Krywjfvnvc[address] [place], [place] [address]Dr. Ricardo Rocha EGFR-NON AF [place] 39 mL/min/1.73m2 Critically low >=60 [facility] Comment on above: Performed By: #### C RP, BMP, URIC ####[facility] [address] [place], [place] [address]Dr. Ricardo Rocha Glucose [Mass/Vol] 125 mg/dL Critically high 74-106 [facility] Comment on above: Performed By: #### C RP, BMP, URIC ####[facility] [address]fyanhml350[address] [place] [id number]. Ricardo Rocha Potassium [Moles/Vol] 4.8 mmol/L Normal 3.5-5.1 [facility] Comment on above: Performed By: #### C RP, BMP, URIC ####[facility] Tbfundujrp[address] [place] [address]Dr. Ricardo Rocha Sodium [Moles/Vol] 134 mmol/L Critically low 136-145 [facility] Comment on above: Performed By: #### C RP, BMP, URIC ####[facility] [address]ux[address]ad[address] [place] [address]Dr. Ricardo Rocha Urea nitrogen [Mass/Vol] 22.0 mg/dL Critically high 7.0-18.0 [facility] Comment on above: Performed By: #### C RP, BMP, URIC ####[facility] [address]zfe[address] [place] [address]Dr. Ricardo Rocha Urea nitrogen/Creatinine [Mass ratio] 16.2 mg/mg Normal [facility] Comment on above: Performed By: #### C RP, BMP, URIC ####[facility] [address]xquxyjtdp[address] [place] [address]Dr. Ricardo Rocha [facility] SED [facility]ATE 95 mm/hr Critically high <=30 [facility] Comment on above: Performed By: #### S EDR ####[facility] [address]iaa[address] [place], [place] [address]Dr. Ricardo Rocha URIC ACID SERUMon 08-03-2022 Urate [Mass/Vol] 4.7 mg/dL Normal 2.6-6.0 [facility] Comment on above: Performed By: #### C RP, BMP, URIC ####[facility] Rcy[address]dfmdq[address] [place], [place] [address]Dr. Ricardo Rocha XR FOOT LT MIN 3 VIEWSon XR FOOT LT MIN 3 VIEWS Normal [facility] PROF CHEM 8 (BAS METB)on Anion gap [Moles/Vol] 13.8 mmol/L Normal [facility] Comment on above: Performed By: #### B MP ####[facility] [address]rf[address]bnj[address] [place] [id number]. Ricardo Rocha Calcium [Mass/Vol] 8.9 mg/dL Normal 8.5-10.1 [facility] Comment on above: Performed By: #### B MP ####[facility] Obq[address]mxf[address] [place] [address]Dr. Ricardo Rocha Chloride [Moles/Vol] 101 mmol/L Normal 98-107 [facility] Comment on above: Performed By: #### B MP ####[facility] K[address]wwlcpvk[address] [place] [address]Dr. Ricardo Rocha CO2 [Moles/Vol] 22.8 mmol/L Normal 21.0-32.0 [facility] Comment on above: Performed By: #### B MP ####[facility] [address]ef[address]pp[address] [place], [place] [address]Dr. Ricardo Rocha Creatinine [Mass/Vol] 1.43 mg/dL Critically high 0.55-1.02 [facility] Comment on above: Performed By: #### B MP ####[facility] X[address]oon[address]hrx[address] [place], [place] [address]Dr. Ricardo Rocha EGFR-AF [place] 45 mL/min/1.73m2 Critically low >=60 [facility] Comment on above: Performed By: #### B MP ####[facility] [address]te[address] [place], [place] [address]Dr. Ricardo Rocha EGFR-NON AF [place] 37 mL/min/1.73m2 Critically low >=60 [facility] Comment on above: Performed By: #### B MP ####[facility] Ul[address]jmh[address] [place], [place] [address]Dr. Ricardo Rocha Glucose [Mass/Vol] 279 mg/dL Critically high 74-106 [facility] Comment on above: Performed By: #### B MP ####[facility] Ijxbktfeya[address] [place], [place] [address]Dr. Ricardo Rocha Potassium [Moles/Vol] 4.6 mmol/L Normal 3.5-5.1 [facility] Comment on above: Performed By: #### B MP ####[facility] I[address]qq[address]uskil[address] [place] [id number]. Ricardo Rocha Sodium [Moles/Vol] 133 mmol/L Critically low 136-145 [facility] Comment on above: Performed By: #### B MP ####[facility] Ewqabprlel3304 [place] [address]Dr. Ricardo Rocha Urea nitrogen [Mass/Vol] 24.0 mg/dL Critically high 7.0-18.0 [facility] Comment on above: Performed By: #### B MP ####[facility] [address] [place], [place] [address]Dr. Ricardo Rocha Urea nitrogen/Creatinine [Mass ratio] 16.8 mg/mg Normal [facility] Comment on above: Performed By: #### B MP ####[facility] [address]klp[address] [place], [place] [address]Dr. Ricardo Rocha ACID FAST SMEAR AND CXon Acid Fast Culture Negative Normal [facility] Comment on above: Result Comment: No a amilcar fast bacilli isolated after 6 weeks. Performed By: #### A FB ####[facility] X[address]eaplonv[address] [place], [place] [address]Dr. Ricardo Rocha Acid Fast Smear Negative Normal [facility] Comment on above: Performed By: #### A FB ####[facility] Vs[address]abmgoc[address] [place], [place] [address]Dr. Ricardo Rocha [employer] Specimen Processing Direct Inoculation [facility] Comment on above: Performed By: #### A FB ####[facility] [address]cf[address] [place], [place] [address]Dr. Ricardo Rocha [employer] Specimen Processing Tissue Grinding [facility] Comment on above: Performed By: #### A FB ####[facility] G[address]fkcyl[address] [place], [place] [address]Dr. Ricardo Rocha FUNGAL CULTUREon 07-11-2022 Fungus (Mycology) Culture Final report [facility] Comment on above: Performed By: #### C XFUN ####[facility] Izilvnkwkx[address] [place], [place] [address]Dr. Ricardo Rocha Fungus Stain Final report Normal [facility] Comment on above: Performed By: #### C XFUN ####[facility] [address]da[address] [place] [address]Dr. Ricardo Rocha Result 1 Comment Normal [facility] Comment on above: Result Comment: AAYUSH/ Calcofluor preparation: no fungus observed. Performed By: #### C XFUN ####[facility] B[address]vbxcfeh[address] [place] [address]Dr. Ricardo Rocha Result Comment: No y east or mold isolated after 4 weeks. PROF CHEM 8 (BAS METB)on Anion gap [Moles/Vol] 15.1 mmol/L Normal [facility] Comment on above: Performed By: #### B MP ####[facility] [address]ibt[address]sfjb[address] [place], [place] [address]Dr. Ricardo Rocha Calcium [Mass/Vol] 9.0 mg/dL Normal 8.5-10.1 [facility] Comment on above: Performed By: #### B MP ####[facility] R[address]rgkhzb[address] [place], [place] [address]Dr. Ricardo Rocha Chloride [Moles/Vol] 101 mmol/L Normal 98-107 [facility] Comment on above: Performed By: #### B MP ####[facility] [address]we[address]wo[address] [place], [place] [address]Dr. Ricardo Rocha CO2 [Moles/Vol] 18.5 mmol/L Critically low 21.0-32.0 [facility] Comment on above: Performed By: #### B MP ####[facility] [address]cfix[address] [place] [address]Dr. Ricardo Rocha Creatinine [Mass/Vol] 2.05 mg/dL Critically high 0.55-1.02 [facility] Comment on above: Performed By: #### B MP ####[facility] Fiykaxsipj[address] [place], [place] [address]Dr. Ricardo Rocha EGFR-AF [place] 30 mL/min/1.73m2 Critically low >=60 [facility] Comment on above: Performed By: #### B MP ####[facility] Qmrjssqacs5[address] [place] [id number]. Ricardo Rocha EGFR-NON AF [place] 24 mL/min/1.73m2 Critically low >=60 [facility] Comment on above: Performed By: #### B MP ####[facility] Lcfbzqgmlz5606 [place] [id number]. Nanomarcial Rocha Glucose [Mass/Vol] 134 mg/dL Critically high 74-106 [facility] Comment on above: Performed By: #### B MP ####[facility] Vzpupouaho[address] [place], [place] [address]Dr. Ricardo Rocha Potassium [Moles/Vol] 5.6 mmol/L Critically high 3.5-5.1 [facility] Comment on above: Performed By: #### B MP ####[facility] Zncnwntmfq[address] [place], [place] [address]Dr. Ricardo Rocha Sodium [Moles/Vol] 129 mmol/L Critically low 136-145 [facility] Comment on above: Performed By: #### B MP ####[facility] Vbglvgsfna[address] [place], [place] [address]Dr. Ricardo Rocha Urea nitrogen [Mass/Vol] 57.0 mg/dL Critically high 7.0-18.0 [facility] Comment on above: Performed By: #### B MP ####[facility] Ozoqbajxfj[address] [place], [place] [address]Dr. Ricardo Rocha Urea nitrogen/Creatinine [Mass ratio] 27.8 mg/mg Normal [facility] Comment on above: Performed By: #### B MP ####[facility] Jimgfsfiec09[address] [place], [place] [address]Dr. Nanomarcial Aj CBC AUTO DIFFon 07-06-2022 BASO # 0.0 103/ul Normal 0.0-0.1 [facility] Comment on above: Performed By: #### C BC ####[facility] Zhlxjqueaz59[address] [place], [place] [address]Dr. Ricardo Rocha Basophils/100 WBC (Bld) 0.6 % Normal 0.2-2.0 [facility] Comment on above: Performed By: #### C BC ####[facility] Okofvdaybr3356 [place] [phone]. Ricardo Rocha EO # 0.1 103/ul Normal 0.0-0.7 [facility] Comment on above: Performed By: #### C BC ####[facility] Zvitytjpvb[address] [place], [place] [address]Dr. Ricardo Rocha Eosinophils/100 WBC (Bld) 1.7 % Normal 0.9-7.0 [facility] Comment on above: Performed By: #### C BC ####[facility] Wegiiwqcrx[address] [place], [place] [address]Dr. Ricardo Rocha Erythrocyte distribution width (RBC) [Ratio] 15.2 % Critically high 11.0-15.0 [facility] Comment on above: Performed By: #### C BC ####[facility] Blnqanvnhh[address] [place], [place] [address]Dr. Ricardo Rocha Hematocrit (Bld) [Volume fraction] 34.6 % Critically low 36.0-48.0 [facility] Comment on above: Performed By: #### C BC ####[facility] Eqsmzcobwd[address] [place], [place] [address]Dr. Ricardo Rocha Hemoglobin (Bld) [Mass/Vol] 10.5 g/dL Critically low 12.0-16.0 [facility] Comment on above: Performed By: #### C BC ####[facility] Evlufzcugr[address] [place], [place] [address]Dr. Ricardo Rocha IG # 0.01 10e3/ul Normal 0.00-0.03 [facility] Comment on above: Performed By: #### C BC ####[facility] Iffxigjnxw[address] [place], [place] [address]Dr. Ricardo Rocha IG % 0.2 % Normal 0.0-0.5 [facility] Comment on above: Performed By: #### C BC ####[facility] Kgawohsmec[address] [place], [place] [address]Dr. Nanomarcial Rocha LYMPH # 2.4 103/ul Normal 1.2-3.8 [facility] Comment on above: Performed By: #### C BC ####[facility] Tkwgirjzlo6402 [place] [phone]. Nanomarcial Rocha Lymphocytes/100 WBC (Bld) 44.4 % Normal 20.5-60.0 [facility] Comment on above: Performed By: #### C BC ####[facility] Kujlxxoubl7749 [place] [phone]. Ricardo Rocha MANUAL DIFF REQ NO Normal [facility] Comment on above: Performed By: #### C BC ####[facility] Raekqvkjrs3739 [place] [phone]. Ricardo Rocha MCH (RBC) [Entitic mass] 25.0 pg Critically low 26.7-34.0 [facility] Comment on above: Performed By: #### C BC ####[facility] Armhbnavcq[address] [place], [place] [address]Dr. Ricardo Rocha MCHC (RBC) [Mass/Vol] 30.3 g/dL Normal 29.9-35.2 [facility] Comment on above: Performed By: #### C BC ####[facility] Qvfbefslrj[address] [place], [place] [address]Dr. Ricardo Rocha MCV (RBC) [Entitic vol] 82.4 fL Normal 81.0-99.0 [facility] Comment on above: Performed By: #### C BC ####[facility] Tvqzfbexek48[address] [place], [place] [address]Dr. Ricardo Rocha MONO # 0.3 103/ul Normal 0.3-0.8 [facility] Comment on above: Performed By: #### C BC ####[facility] Epoofnijyc78[address] [place], [place] [address]Dr. Ricardo Rocha Monocytes/100 WBC (Bld) 5.1 % Normal 1.7-12.0 [facility] Comment on above: Performed By: #### C BC ####[facility] Xtvpncdjqj07[address] [place], [place] [address]Dr. Ricardo Rocha NEUT # 2.5 103/ul Normal 1.4-6.5 [facility] Comment on above: Performed By: #### C BC ####[facility] Safpfusnoh6198 [place] [phone]. Ricardo Rocha Neutrophils/100 WBC (Bld) 48.0 % Normal 43.0-75.0 [facility] Comment on above: Performed By: #### C BC ####[facility] Oeqhcgkmte4487 [place] [phone]. Ricardo Rocha Platelet mean volume (Bld) [Entitic vol] 10.7 fL Normal 9.5-13.5 [facility] Comment on above: Performed By: #### C BC ####[facility] Oduhautmyf5[address] [place] [phone]. Ricardo Rocha PLT 261 103/ul Normal 150-450 [facility] Comment on above: Performed By: #### C BC ####[facility] Mgunpkydnw30[address] [place] [phone]. Ricardo Rocha RBC 4.20 106/ul Normal 4.20-5.40 [facility] Comment on above: Performed By: #### C BC ####[facility] Fvglpxpuzb1366 [place] [phone]. Ricardo Rocha WBC 5.3 103/ul Normal 4.0-11.0 [facility] Comment on above: Performed By: #### C BC ####[facility] Revdpgeuzc0942 [place] [phone]. Ricardo Rocha GLYCOHEMOGLOBIN A1Con 2021 ADA RECOMMENDATION SEE BELOW Normal [facility] Comment on above: Result Comment: ADA RECOMMENDED LIMIT 4.0 - 6.0 ADA THERAPEUTIC TARGET < 7.0 ACTION SUGGESTED > 7.0 Performed By: #### A 1C ####[facility] Pjucaqpags6[address] [place] [phone]. Ricardo Rocha Glucose [Mass/Vol] 289 mg/dL Normal [facility] Comment on above: Performed By: #### A 1C ####[facility] Pxtgqybjpv7831 [place] [phone]. Ricardo Rocha HbA1c (Bld) [Mass fraction] 11.7 % Critically high 4.5-6.2 [facility] Comment on above: Performed By: #### A 1C ####[facility] Yqcavzoujv2286 [place] [phone]. Ricardo Rocha LIPID PROFILEon 07-06-2022 CHOL-HDL RATIO NORM SEE BELOW Normal [facility] Comment on above: Result Comment: 3.3 - 4.4 LOW RISK 4.4 - 7.1 AVERAGE RISK 7.1 - 11.0 MODERATE RISK >11.0 HIGH RISK Performed By: #### T SH, CMP, LIPID ####[facility] Kmurufpwwe6635 [place], [place] [address]Vb. Ricardo Rocha Cholesterol [Mass/Vol] 284 mg/dL Critically high <=200 [facility] Comment on above: Performed By: #### T SH, CMP, LIPID ####[facility] Rzvbemzfea3176 [place], [place] [address]Mf. Ricardo Rocha Cholesterol in HDL [Mass/Vol] 40 mg/dL Normal 40-60 [facility] Comment on above: Performed By: #### T SH, CMP, LIPID ####[facility] Novjohpltr9228 [place] [phone]. Ricardo Rocha Cholesterol in LDL [Mass/Vol] 167.8 mg/dL Normal [facility] Comment on above: Performed By: #### T SH, CMP, LIPID ####[facility] Ykwkoeqmen8380 [place], [place] [address]Kx. Ricardo Rocha Cholesterol.total/Ch olesterol in HDL [Mass ratio] 7.1 {ratio} Normal [facility] Comment on above: Performed By: #### T SH, CMP, LIPID ####[facility] Gybsevnybq9618 [place], [place] [address]Zl. Nanolan Rocha HDL NORMAL > or = 60 mg/dl - LO W CARDIOVASCULAR RISK <40 mg/dl - HIGH CARDIOVASCULAR RISK Normal [facility] Comment on above: Performed By: #### T SH, CMP, LIPID ####[facility] Dtdwzvoyuj7420 [place], [place] [address]Hv. Ricardo Rocha LDL CALC NORMAL SEE BELOW Normal [facility] Comment on above: Result Comment: <100 mg/dl OPTIMAL 100 - 129 mg/dl NEAR OR ABOVE OPTIMAL 130 - 159 mg/dl BORDERLINE HIGH 160 - 189 mg/dl HIGH >190 mg/dl VERY HIGH Performed By: #### T SH, CMP, LIPID ####[facility] Rbhfagtsmg4806 [place] [address]Dr. Ricardo Rocha Triglyceride [Mass/Vol] 381 mg/dL Critically high <=150 [facility] Comment on above: Performed By: #### T SH, CMP, LIPID ####[facility] Gfgdbbcfut[address] [place] [address]Dr. Ricardo Rocha VLDL CALC 76.2 mg/dL Normal [facility] Comment on above: Performed By: #### T SH, CMP, LIPID ####[facility] Jzeolhahzp[address] [place] [address]Dr. Ricardo Rocha MICROALBUMIN, RAND URon 11- mALB <1.3 Normal <=30.0 [facility] Comment on above: Performed By: #### M ALBR ####[facility] Lkrfpszdbt0995 [place] [address]Dr. Ricardo Rocha PROF 14(COMP METB)on 022 Albumin [Mass/Vol] 3.3 g/dL Critically low 3.4-5.0 [facility] Comment on above: Performed By: #### T SH, CMP, LIPID ####[facility] Micadsjdls8366 [place] [address]Dr. Ricardo Rocha Albumin/Globulin [Mass ratio] 0.5 {ratio} Normal [facility] Comment on above: Performed By: #### T SH, CMP, LIPID ####[facility] Ceemkxkaqa1771 [place] [address]Dr. Ricardo Rocha ALP [Catalytic activity/Vol] 129 U/L Critically high 46-116 [facility] Comment on above: Performed By: #### T SH, CMP, LIPID ####[facility] Vsnrrvdpzy1418 [place] [address]Dr. Ricardo Rocha ALT [Catalytic activity/Vol] 22 U/L Normal 14-59 [facility] Comment on above: Performed By: #### T SH, CMP, LIPID ####[facility] Lchdctokor6968 [place] [address]Dr. Ricardo Rocha Anion gap [Moles/Vol] 16.1 mmol/L Normal [facility] Comment on above: Performed By: #### T SH, CMP, LIPID ####[facility] Lupzskojfe33[address] [place] [address]Dr. Ricardo Rocha AST [Catalytic activity/Vol] 22 U/L Normal 15-37 [facility] Comment on above: Performed By: #### T SH, CMP, LIPID ####[facility] Vjzpoxytvm4260 [place] [address]Dr. Ricardo Rocha Bilirubin [Mass/Vol] 0.2 mg/dL Normal 0.2-1.0 [facility] Comment on above: Performed By: #### T SH, CMP, LIPID ####[facility] Ujchrossdr75[address] [place] [address]Dr. Ricardo Rocha Calcium [Mass/Vol] 9.4 mg/dL Normal 8.5-10.1 [facility] Comment on above: Performed By: #### T SH, CMP, LIPID ####[facility] Cvyvhlisnx[address] [place], [place] [address]Dr. Ricardo Rocha Chloride [Moles/Vol] 102 mmol/L Normal 98-107 [facility] Comment on above: Performed By: #### T SH, CMP, LIPID ####[facility] Noohydgawt7566 [place] [address]Dr. Ricardo Rocha CO2 [Moles/Vol] 18.4 mmol/L Critically low 21.0-32.0 [facility] Comment on above: Performed By: #### T SH, CMP, LIPID ####[facility] Nkhvyqiirs4731 [place] [address]Dr. Ricardo Rocha Creatinine [Mass/Vol] 2.01 mg/dL Critically high 0.55-1.02 [facility] Comment on above: Performed By: #### T SH, CMP, LIPID ####[facility] Kixxhgcsvo[address] [place], [place] [address]Dr. Ricardo Rocha EGFR-AF [place] 30 mL/min/1.73m2 Critically low >=60 [facility] Comment on above: Performed By: #### T SH, CMP, LIPID ####[facility] Mrziifjkzq2937 [place] [address]Dr. Ricardo Rocha EGFR-NON AF [place] 25 mL/min/1.73m2 Critically low >=60 [facility] Comment on above: Performed By: #### T SH, CMP, LIPID ####[facility] Hnvyhtdwkh9798 [place] [address]Dr. Ricardo Rocha Globulin (S) [Mass/Vol] 6.3 g/dL Normal [facility] Comment on above: Performed By: #### T SH, CMP, LIPID ####[facility] Omeidujfer7761 [place] [address]Dr. Nanomarcial Rocha Glucose [Mass/Vol] 118 mg/dL Critically high 74-106 [facility] Comment on above: Performed By: #### T SH, CMP, LIPID ####[facility] Bxamyjvnao[address] [place], [place] [address]Dr. Nanomarcial Rocha Potassium [Moles/Vol] 5.5 mmol/L Critically high 3.5-5.1 [facility] Comment on above: Performed By: #### T SH, CMP, LIPID ####[facility] Epoquidgtk4741 [place] [address]Dr. Ricardo Rocha Protein [Mass/Vol] 9.6 g/dL Critically high 6.4-8.2 [facility] Comment on above: Performed By: #### T SH, CMP, LIPID ####[facility] Ncaeairxeq0943 [place] [address]Dr. Ricardo Rocha Sodium [Moles/Vol] 131 mmol/L Critically low 136-145 [facility] Comment on above: Performed By: #### T SH, CMP, LIPID ####[facility] Xnnysrwjxw0263 [place] [address]Dr. Ricardo Rocha Urea nitrogen [Mass/Vol] 45.0 mg/dL Critically high 7.0-18.0 [facility] Comment on above: Performed By: #### T SH, CMP, LIPID ####[facility] Mmpucprpic98[address] [place] [address]Dr. Ricardo Rocha Urea nitrogen/Creatinine [Mass ratio] 22.4 mg/mg Normal [facility] Comment on above: Performed By: #### T SH, CMP, LIPID ####[facility] Crxatkvmyy4993 [place] [phone]. Ricardo Rocha TSHon 07-06-2022 TSH 1.178 uIU/mL Normal 0.358-3.740 [facility] Comment on above: Performed By: #### T SH, CMP, LIPID ####[facility] Sckdbuimjx9349 [place] [address]Dr. Ricardo Rocha UA RANDOM W/MICROSCOPICon BACTERIA NONE SEEN Normal NONE SEEN [facility] Comment on above: Performed By: #### U AMIC ####[facility] Xmnuvuwxnr[address] [place], [place] [address]Dr. Ricardo Rocha Bilirubin Ql (U) Negative Normal NEGATIVE [facility] Comment on above: Performed By: #### U AMIC ####[facility] Pddtjltyxj[address] [place], [place] [address]Dr. Ricardo Rocha CAST NONE SEEN Normal NONE SEEN [facility] Comment on above: Performed By: #### U AMIC ####[facility] Gabmmmsjal[address] [place] [address]Dr. Ricardo Rocha Clarity (U) CLEAR Normal CLEAR [facility] Comment on above: Performed By: #### U AMIC ####[facility] Oserwxlfbt0295 [place] [address]Dr. Ricardo Rocha Color (U) LT. YELLOW Normal YELLOW [facility] Comment on above: Performed By: #### U AMIC ####[facility] Vopezautdt[address] [place], [place] [address]Dr. Ricardo Rocha Crystals LM Nom (Urine sed) NONE SEEN Normal NONE SEEN [facility] Comment on above: Performed By: #### U AMIC ####[facility] Trpeoektjk5[address] [place], [place] [address]Dr. Ricardo Rocha Epithelial cells LM Ql (Urine sed) NONE SEEN Normal NONE SEEN /RARE [facility] Comment on above: Performed By: #### U AMIC ####[facility] Fduwgpbomm5816 [place] [address]Dr. Ricardo Rocha Glucose Ql (U) Negative Normal NEGATIVE [facility] Comment on above: Performed By: #### U AMIC ####[facility] Zjcntqcmkh7956 [place] [address]Dr. Nanomarcial Aj Hemoglobin Ql (U) Negative Normal NEGATIVE [facility] Comment on above: Performed By: #### U AMIC ####[facility] Ixpjxyfmry2044 [place] [address]Dr. Ricardo Rocha Ketones Ql (U) Negative Normal NEGATIVE [facility] Comment on above: Performed By: #### U AMIC ####[facility] Hzkruujbpe99[address] [place], [place] [address]Dr. Ricardo Rocha LEUKOCYTES Negative Normal NEGATIVE [facility] Comment on above: Performed By: #### U AMIC ####[facility] Stcnfilqkh60[address] [place] [address]Dr. Ricardo Rocha MUCOUS NONE SEEN Normal NONE SEEN [facility] Comment on above: Performed By: #### U AMIC ####[facility] Nhbphmqlfu4927 [place] [address]Dr. Ricardo Rocha Nitrite Ql (U) Negative Normal NEGATIVE [facility] Comment on above: Performed By: #### U AMIC ####[facility] Mtpvznxqev3792 [place] [address]Dr. Ricardo Rocha pH (U) 5.5 [pH] Normal 5-9 [facility] Comment on above: Performed By: #### U AMIC ####[facility] Ghnqdrrgey0051 [place] [address]Dr. Ricardo Rocha RBC NONE SEEN Abnormal 0-2 [facility] Comment on above: Performed By: #### U AMIC ####[facility] Htptvoccau2714 [place] [address]Dr. Ricardo Rocha SPEC GRAVITY 1.020 Normal 1.005-<=1.02 5 [facility] Comment on above: Performed By: #### U AMIC ####[facility] Xmqiwoeapb2286 [place] [address]Dr. Ricardo Rocha UA PROTEIN Negative Normal NEGATIVE/ TRACE [facility] Comment on above: Performed By: #### U AMIC ####[facility] Lzuwnfxher7480 [place] [address]Dr. Ricardo Rocha Urobilinogen Qn (U) 0.2 {Madeleine'U}/dL Normal 0.2 - 1. 0 [facility] Comment on above: Performed By: #### U AMIC ####[facility] Iclfuoblau[address] [place], [place] [address]Dr. Ricardo Rocha WBC NONE SEEN Normal NONE SEEN [facility] Comment on above: Performed By: #### U AMIC ####[facility] Imluximjpv9[address] [place], [place] [address]Dr. Ricardo Rocha CBC W MANUAL DIFFon 06-16-20 22 ATYPICAL LYMPH # Normal [facility] Comment on above: Performed By: #### C BCMAN ####[facility] Egjrnosafz[address] [place], [place] [address]Dr. Ricardo Rocah ATYPICAL LYMPH % Normal [facility] Comment on above: Performed By: #### C BCRED ####[facility] Fwwsczbjuz7[address] [place], [place] [address]Dr. Ricardo Rocah BAND # 0.2 103/ul Normal 0.0-0.3 [facility] Comment on above: Performed By: #### C BCMAN ####[facility] Gmiqdyvuzv[address] [place], [place] [address]Dr. Ricardo Rocha BAND % 2 % Normal 0-5 [facility] Comment on above: Performed By: #### C BCMAN ####[facility] Hlcmonewgm6[address] [place], [place] [address]Dr. Ricardo Rocha BASOM # 0.00 103/ul Normal 0.00-0.10 [facility] Comment on above: Performed By: #### C BCMAN ####[facility] Ujykwyayhe[address] [place] [phone]. Ricardo Rocha BASOM % 0.0 % Critically low 0.2-2.0 [facility] Comment on above: Performed By: #### C BCMAN ####[facility] Gcjmcptovl9648 [place] [phone]. Ricardo Rocha BLAST # Normal [facility] Comment on above: Performed By: #### C BCMAN ####[facility] Oaccyislka6[address] [place] [phone]. Ricardo Rocha BLAST % Normal [facility] Comment on above: Performed By: #### C BCRED ####[facility] Kfcekiptdn1195 [place] [address]Dr. Ricardo Rocha CORRECTED WBC Normal 4.0-11.0 [facility] Comment on above: Performed By: #### C BCRED ####[facility] Vhbqeldwty[address] [place], [place] [address]Dr. Ricardo Rocha EOS # 0.11 103/ul Normal 0.00-0.70 [facility] Comment on above: Performed By: #### C BCRED ####[facility] Kfaijgxlld[address] [place], [place] [address]Dr. Ricardo Rocha EOS% 1.0 % Normal 0.9-7.0 [facility] Comment on above: Performed By: #### C BCRED ####[facility] Ubpppriklq23[address] [place], [place] [address]Dr. Ricardo Rocha HCT 24.2 % Critically low 36.0-48.0 [facility] Comment on above: Performed By: #### C BCRED ####[facility] Sagjosnqtv8[address] [place], [place] [address]Dr. Ricardo Rocha HGB 7.9 g/dl Critically low 12.0-16.0 [facility] Comment on above: Performed By: #### C BCRED ####[facility] Zyzpccnmuo32[address] [place], [place] [address]Dr. Ricardo Rocha LYMPHM # 1.81 103/ul Normal 1.20-3.80 [facility] Comment on above: Performed By: #### C DWAINE ####[facility] Teuqrxdphf1663 [place] [phone]. Ricardo Rocha LYMPHM% 16.0 % Critically low 20.5-60.0 [facility] Comment on above: Performed By: #### C DWAINE ####[facility] Btllzbbynt9639 [place] [phone]. Ricardo Rocha MCH 25.2 pg Critically low 26.7-34.0 [facility] Comment on above: Performed By: #### C DWAINE ####[facility] Desjlkejbo5127 [place] [phone]. Ricardo Rocha MCHC 32.6 g/dl Normal 29.9-35.2 [facility] Comment on above: Performed By: #### C DWAINE ####[facility] Uldfrsydqr8879 [place] [phone]. Ricardo Rocha MCV 77.3 fL Critically low 81.0-99.0 [facility] Comment on above: Performed By: #### C DWAINE ####[facility] Vlaifihmhg7175 [place] [phone]. Ricardo Rocha METAMYELOCYTE # 0.5 103/ul Normal [facility] Comment on above: Performed By: #### C DWAINE ####[facility] Undooeyzrg0246 [place] [phone]. Ricardo Rocha METAMYELOCYTE % 4 % Normal [facility] Comment on above: Performed By: #### C DWAINE ####[facility] Txgnpsxoie3080 [place] [phone]. Ricardo Rocha MONOM# 0.45 103/ul Normal 0.30-0.80 [facility] Comment on above: Performed By: #### C DWAINE ####[facility] Huyehtbdfw2255 [place] [phone]. Ricardo Rocha MONOM% 4.0 % Normal 1.7-12.0 [facility] Comment on above: Performed By: #### Esteban ISIDRO ####[facility] Hpxdhtrfgv4424 [place] [phone]. Ricardo Rocha MPV 10.4 fL Normal 9.5-13.5 [facility] Comment on above: Performed By: #### C DWAINE ####[facility] Yeramcavkf0[address] [place] [phone]. Ricardo Rocha MYELOCYTE # 0.5 103/ul Normal [facility] Comment on above: Performed By: #### C DWAINE ####[facility] Xdmuwbpnfd9038 [place] [phone]. Ricardo Rocha MYELOCYTE % 4 % Normal [facility] Comment on above: Performed By: #### C DWAINE ####[facility] Hbrnqrgmxl1849 [place] [address]Dr. Ricardo Rocha NRBC Normal [facility] Comment on above: Performed By: #### C DWAINE ####[facility] Vljskqshvc5248 [place] [phone]. Ricardo Rocha PLT 325 103/ul Normal 150-450 [facility] Comment on above: Performed By: #### C DWAINE ####[facility] Llsptnbenw0763 [place] [phone]. Ricardo Rocha RBC 3.13 106/ul Critically low 4.20-5.40 [facility] Comment on above: Performed By: #### C DWAINE ####[facility] Ubkrtvlmmh0438 [place] [phone]. Ricardo Rocha RDW 13.7 % Normal 11.0-15.0 [facility] Comment on above: Performed By: #### C DWAINE ####[facility] Tysgcvgtlj9707 [place] [phone]. Ricardo Rocha SEG # 7.80 103/ul Critically high 1.40-6.50 [facility] Comment on above: Performed By: #### C DWAINE ####[facility] Zwdwrxdejs6884 [place] [phone]. Ricardo Rocha SEG % 69.0 % Normal 43.0-75.0 [facility] Comment on above: Performed By: #### C BCMAN ####[facility] Xdrrvodpif7910 [place] [phone]. Ricardo Rocha WBC 11.3 103/ul Critically high 4.0-11.0 [facility] Comment on above: Performed By: #### C BCMAN ####[facility] Zcyerenjdc3030 [place] [address]Dr. Ricardo Rocha PROF 14(COMP METB)on 022 Albumin [Mass/Vol] 1.7 g/dL Critically low 3.4-5.0 [facility] Comment on above: Performed By: #### C MP ####[facility] Sgyawjmmct5272 [place] [address]Dr. Ricardo Rocha Albumin/Globulin [Mass ratio] 0.4 {ratio} Normal [facility] Comment on above: Performed By: #### C MP ####[facility] Zjofakbzmk9699 [place] [address]Dr. Ricardo Rocha ALP [Catalytic activity/Vol] 174 U/L Critically high 46-116 [facility] Comment on above: Performed By: #### C MP ####[facility] Lyqdbabubt2423 [place] [address]Dr. Ricardo Rocha ALT [Catalytic activity/Vol] 14 U/L Normal 14-59 [facility] Comment on above: Performed By: #### C MP ####[facility] Zivooqjxkp5159 [place] [address]Dr. Ricardo Rocha Anion gap [Moles/Vol] 10.8 mmol/L Normal [facility] Comment on above: Performed By: #### C MP ####[facility] Pgonbqvdag8318 [place] [address]Dr. Ricardo Rocha AST [Catalytic activity/Vol] 13 U/L Critically low 15-37 [facility] Comment on above: Performed By: #### C MP ####[facility] Ephoehcaxh3073 [place] [address]Dr. Ricardo Rocha Bilirubin [Mass/Vol] 0.3 mg/dL Normal 0.2-1.0 [facility] Comment on above: Performed By: #### C MP ####[facility] Azfwceoiaz4265 [place] [phone]. Ricardo Rocha Calcium [Mass/Vol] 8.2 mg/dL Critically low 8.5-10.1 [facility] Comment on above: Performed By: #### C MP ####[facility] Zhuegeukmw9890 [place] [phone]. Ricardo Rocha Chloride [Moles/Vol] 104 mmol/L Normal 98-107 [facility] Comment on above: Performed By: #### C MP ####[facility] Rpftvnymnz0427 [place] [phone]. Ricardo Rocha CO2 [Moles/Vol] 22.4 mmol/L Normal 21.0-32.0 [facility] Comment on above: Performed By: #### C MP ####[facility] Qhjckifpzc[address] [place], [place] [address]Dr. Ricardo Rocha Creatinine [Mass/Vol] 1.29 mg/dL Critically high 0.55-1.02 [facility] Comment on above: Performed By: #### C MP ####[facility] Tvemzzkamm4092 [place] [phone]. Ricardo Rocha EGFR-AF [place] 50 mL/min/1.73m2 Critically low >=60 [facility] Comment on above: Performed By: #### C MP ####[facility] [address]meur[address] [place], [place] [id number]. Ricardo Aj EGFR-NON AF [place] 42 mL/min/1.73m2 Critically low >=60 [facility] Comment on above: Performed By: #### C MP ####[facility] T[address]qae[address] [place] [id number]. Ricardo Rocha Globulin (S) [Mass/Vol] 4.8 g/dL Normal [facility] Comment on above: Performed By: #### C MP ####[facility] Euvwlguogn2644 [place] [id number]. Ricardo Aj Glucose [Mass/Vol] 262 mg/dL Critically high 74-106 [facility] Comment on above: Performed By: #### C MP ####[facility] Opkravybpk[address] [place] [address]Dr. Ricardo Rocha Potassium [Moles/Vol] 3.2 mmol/L Critically low 3.5-5.1 [facility] Comment on above: Performed By: #### C MP ####[facility] Tqmgztevwp[address] [place], [place] [address]Dr. Nanomarcial Rocha Protein [Mass/Vol] 6.5 g/dL Normal 6.4-8.2 [facility] Comment on above: Performed By: #### C MP ####[facility] Prybfyyxin70[address] [place], [place] [address]Dr. Nanomarcial Rocha Sodium [Moles/Vol] 134 mmol/L Critically low 136-145 [facility] Comment on above: Performed By: #### C MP ####[facility] Szynpidctx78[address] [place], [place] [address]Dr. Ricardo Rocha Urea nitrogen [Mass/Vol] 20.0 mg/dL Critically high 7.0-18.0 [facility] Comment on above: Performed By: #### C MP ####[facility] Ggbuwkagrq[address] [place], [place] [address]Dr. Nanomarcial Rocha Urea nitrogen/Creatinine [Mass ratio] 15.5 mg/mg Normal [facility] Comment on above: Performed By: #### C MP ####[facility] Xhcdkdjair[address] [place], [place] [address]Dr. Ricardo Rocha CBC AUTO DIFFon 06-15-2022 BASO # 0.1 103/ul Normal 0.0-0.1 [facility] Comment on above: Performed By: #### C BC ####[facility] Ocfxqxgvoi[address] [place], [place] [address]Dr. Ricardo Rocha Basophils/100 WBC (Bld) 0.7 % Normal 0.2-2.0 [facility] Comment on above: Performed By: #### C BC ####[facility] Kwwodvxcox[address] [place], [place] [address]Dr. Ricardo Rocha EO # 0.1 103/ul Normal 0.0-0.7 [facility] Comment on above: Performed By: #### C BC ####[facility] Jvrxzdkjaq4938 [place] [id number]. Ricardo Rocha Eosinophils/100 WBC (Bld) 0.7 % Critically low 0.9-7.0 [facility] Comment on above: Performed By: #### C BC ####[facility] Hnmybfntgh6958 [place] [phone]. Ricardo Rocha Erythrocyte distribution width (RBC) [Ratio] 13.7 % Normal 11.0-15.0 [facility] Comment on above: Performed By: #### C BC ####[facility] Ijxyacqyiy5[address] [place] [address]Dr. Ricardo Rocha Hematocrit (Bld) [Volume fraction] 26.7 % Critically low 36.0-48.0 [facility] Comment on above: Performed By: #### C BC ####[facility] Ohzatudxbd[address] [place], [place] [address]Dr. Ricardo Rocha Hemoglobin (Bld) [Mass/Vol] 8.4 g/dL Critically low 12.0-16.0 [facility] Comment on above: Performed By: #### C BC ####[facility] Fhnbpisiau[address] [place], [place] [address]Dr. Ricardo Rocha IG # 0.83 10e3/ul Critically high 0.00-0.03 [facility] Comment on above: Performed By: #### C BC ####[facility] Cnjrayrfpo6481 [place] [address]Dr. Ricardo Rocha IG % 6.2 % Critically high 0.0-0.5 [facility] Comment on above: Performed By: #### C BC ####[facility] Julhlqolhk[address] [place], [place] [address]Dr. Ricardo Rocha LYMPH # 1.3 103/ul Normal 1.2-3.8 [facility] Comment on above: Performed By: #### C BC ####[facility] Lnxqzcviqy9382 [place] [id number]. Ricardo Rocha Lymphocytes/100 WBC (Bld) 9.6 % Critically low 20.5-60.0 [facility] Comment on above: Performed By: #### C BC ####[facility] Bcvfvhqqak26[address] [place] [address]Dr. Ricardo Rocha MANUAL DIFF REQ NO Normal [facility] Comment on above: Performed By: #### C BC ####[facility] Blcdxeydoz7221 [place] [id number]. Ricardo Rocha MCH (RBC) [Entitic mass] 25.1 pg Critically low 26.7-34.0 [facility] Comment on above: Performed By: #### C BC ####[facility] Hzseozmnkt3998 [place] [address]Dr. Ricardo Rocha MCHC (RBC) [Mass/Vol] 31.5 g/dL Normal 29.9-35.2 [facility] Comment on above: Performed By: #### C BC ####[facility] Clzbgpnemj34[address] [place], [place] [address]Dr. Ricardo Rocha MCV (RBC) [Entitic vol] 79.7 fL Critically low 81.0-99.0 [facility] Comment on above: Performed By: #### C BC ####[facility] Vetaqdxgru[address] [place], [place] [address]DrIrina Rocha MONO # 1.0 103/ul Critically high 0.3-0.8 [facility] Comment on above: Performed By: #### C BC ####[facility] Tzctlnjbub64[address] [place], [place] [address]Dr. Ricardo Rocha Monocytes/100 WBC (Bld) 7.3 % Normal 1.7-12.0 [facility] Comment on above: Performed By: #### C BC ####[facility] Zahbxwsezq[address] [place], [place] [address]DrIrina Rocha NEUT # 10.2 103/ul Critically high 1.4-6.5 [facility] Comment on above: Performed By: #### C BC ####[facility] Bsfstzdusa[address] [place], [place] [address]DrIrina Rocha Neutrophils/100 WBC (Bld) 75.5 % Critically high 43.0-75.0 [facility] Comment on above: Performed By: #### C BC ####[facility] Qliareariq9464 [place] [id number]. Ricardo Rocha Platelet mean volume (Bld) [Entitic vol] 11.8 fL Normal 9.5-13.5 [facility] Comment on above: Performed By: #### C BC ####[facility] Dgfjhmgfue8347 [place] [id number]. Ricardo Rocha PLT 208 103/ul Normal 150-450 [facility] Comment on above: Performed By: #### C BC ####[facility] Hjsmmbgoyu5210 [place] [id number]. Ricardo Rocha RBC 3.35 106/ul Critically low 4.20-5.40 [facility] Comment on above: Performed By: #### C BC ####[facility] Nlfuddczwp6786 [place] [id number]. Ricardo Rocha WBC 13.5 103/ul Critically high 4.0-11.0 [facility] Comment on above: Performed By: #### C BC ####[facility] Becmlqsdop3067 [place] [id number]. Ricardo Rocha CULTURE BLOODon 06-15-2022 Microscopic examination of blood, culture Culture Observations: NO GROWTH AT 5 DAYS Normal [facility] Comment on above: Performed By: #### B LDCX2 ####[facility] Nyyiyticbl1803 [place] [id number]. Ricardo Rocha Microscopic examination of blood, culture Culture Observations: NO GROWTH AT 5 DAYS Normal [facility] Comment on above: Performed By: #### B LDCX1 ####[facility] Ekepuunnen88[address] [place] [id number]. Ricardo Rocha [facility]on [facility]22 SARS-CoV-2 (COVID-19) RNA ADRIEL+probe Ql (Unsp spec) Not detected Normal NOT DETECTED [facility] Comment on above: Result Comment: When [...] for this test is supported by the [employer] Manager of Health and Human Service's declaration [...] be used). Performed By: #### C VDTB ####[facility] Zbkgakjueo0852 [place] [address]Dr. Ricardo Rocha POINT OF CARE GLUCOSEon 05-22 Glucose [Mass/Vol] 366 mg/dL Critically high [address] [place] [address] Comment on above: Performed By: #### P OCGLUC ####[facility] Bgdbnwlvei06[address] [place], [place] [address]Dr. Ricardo Rocha Glucose [Mass/Vol] 229 mg/dL Critically high [address] [place] [address] Comment on above: Performed By: #### P OCGLUC ####[facility] Hblhhlqzkq9634 [place] [address]Dr. Ricardo Rocha Glucose [Mass/Vol] 258 mg/dL Critically high -106 [facility] Comment on above: Performed By: #### P OCGLUC ####[facility] Jmdzfwsxpu2884 [place] [address]Dr. Ricardo Rocha PROF 14(COMP METB)on 022 Albumin [Mass/Vol] 1.8 g/dL Critically low 3.4-5.0 [facility] Comment on above: Performed By: #### C MP ####[facility] Nkzkbfonni79[address] [place], [place] [address]Dr. Ricardo Rocha Albumin/Globulin [Mass ratio] 0.4 {ratio} Normal [facility] Comment on above: Performed By: #### C MP ####[facility] Tuzmupozyd9219 [place] [address]Dr. Ricardo Rocha ALP [Catalytic activity/Vol] 196 U/L Critically high 46-116 [facility] Comment on above: Performed By: #### C MP ####[facility] Bihrtfnrvi8[address] [place] [address]Dr. Ricardo Rocha ALT [Catalytic activity/Vol] 18 U/L Normal 14-59 [facility] Comment on above: Performed By: #### C MP ####[facility] Clhgywcicv9128 [place] [address]Dr. Ricardo Rocha Anion gap [Moles/Vol] 16.3 mmol/L Normal [facility] Comment on above: Performed By: #### C MP ####[facility] Sqkdyjtjpq45[address] [place], [place] [address]Dr. Ricardo Rocha AST [Catalytic activity/Vol] 22 U/L Normal 15-37 [facility] Comment on above: Performed By: #### C MP ####[facility] Ocbskxtsvk[address] [place], [place] [address]Dr. Ricardo Rocha Bilirubin [Mass/Vol] 0.4 mg/dL Normal 0.2-1.0 [facility] Comment on above: Performed By: #### C MP ####[facility] Uubjsqqily97[address] [place], [place] [address]Dr. Ricardo Aj Calcium [Mass/Vol] 8.2 mg/dL Critically low 8.5-10.1 [facility] Comment on above: Performed By: #### C MP ####[facility] Mqzrxycqad80[address] [place], [place] [address]Dr. Ricardo Aj Chloride [Moles/Vol] 103 mmol/L Normal 98-107 [facility] Comment on above: Performed By: #### C MP ####[facility] Bhutarswjd[address] [place], [place] [address]Dr. Ricardo Rocha CO2 [Moles/Vol] 19.0 mmol/L Critically low 21.0-32.0 [facility] Comment on above: Performed By: #### C MP ####[facility] Otcsmogakv32[address] [place] [address]Dr. Ricardo Rocha Creatinine [Mass/Vol] 1.32 mg/dL Critically high 0.55-1.02 [facility] Comment on above: Performed By: #### C MP ####[facility] Owryoylbfq1887 [place] [phone]. Ricardo Rocha EGFR-AF [place] 49 mL/min/1.73m2 Critically low >=60 [facility] Comment on above: Performed By: #### C MP ####[facility] Lfflhbymuv8161 [place] [address]Dr. Ricardo Aj EGFR-NON AF [place] 41 mL/min/1.73m2 Critically low >=60 [facility] Comment on above: Performed By: #### C MP ####[facility] Giyjebkwvd4602 [place] [address]Dr. Ricardo Aj Globulin (S) [Mass/Vol] 5.0 g/dL Normal [facility] Comment on above: Performed By: #### C MP ####[facility] Zrbxhemgix6758 [place] [address]Dr. Ricardo jA Glucose [Mass/Vol] 228 mg/dL Critically high 74-106 [facility] Comment on above: Performed By: #### C MP ####[facility] Xsrvdcgnhm1022 [place] [address]Dr. Ricardo Rocha Potassium [Moles/Vol] 3.3 mmol/L Critically low 3.5-5.1 [facility] Comment on above: Performed By: #### C MP ####[facility] Befyxseajw8453 [place] [address]Dr. Ricardo Rocha Protein [Mass/Vol] 6.8 g/dL Normal 6.4-8.2 [facility] Comment on above: Performed By: #### C MP ####[facility] Douukeasfq8832 [place] [address]Dr. Ricardo Rocha Sodium [Moles/Vol] 135 mmol/L Critically low 136-145 [facility] Comment on above: Performed By: #### C MP ####[facility] Lddysbzdng[address] [place], [place] [address]Dr. Ricardo Rocha Urea nitrogen [Mass/Vol] 23.0 mg/dL Critically high 7.0-18.0 [facility] Comment on above: Performed By: #### C MP ####[facility] Srhtfdlibd[address] [place], [place] [address]Dr. Ricardo Rocha Urea nitrogen/Creatinine [Mass ratio] 17.4 mg/mg Normal [facility] Comment on above: Performed By: #### C MP ####[facility] Cdhamqpnji[address] [place], [place] [address]Dr. Ricardo Rocha UA (CLEAN/CATCH) [employer] ANALYST/MICRO I F IND.on 06-15-2022 Bilirubin Ql (U) Negative Normal NEGATIVE [facility] Comment on above: Performed By: #### U MICRO, UACSIND ####[facility] Zlhvhadvjw[address] [place], [place] [address]Dr. Ricardo Rocha Clarity (U) CLEAR Normal CLEAR [facility] Comment on above: Performed By: #### U MICRO, UACSIND ####[facility] Aezkdbiwbt[address] [place], [place] [address]Dr. Ricardo Rocha Color (U) LT. YELLOW Normal YELLOW [facility] Comment on above: Performed By: #### U MICRO, UACSIND ####[facility] Kzqvgnuptn90[address] [place], [place] [address]Dr. Ricardo Rocha Glucose Ql (U) 250 mg/dl Abnormal NEGATIVE [facility] Comment on above: Performed By: #### U MICRO, UACSIND ####[facility] Smcrwineds39[address] [place], [place] [address]Dr. Ricardo Rocha Hemoglobin Ql (U) TRACE-LYSED Abnormal NEGATIVE [facility] Comment on above: Performed By: #### U MICRO, UACSIND ####[facility] Pjxpulmjis335[address] [place], [place] [address]Dr. Ricardo Rocha Ketones Ql (U) 15 mg/dl Abnormal NEGATIVE [facility] Comment on above: Performed By: #### U MICRO, UACSIND ####[facility] Vzcdpziohv93[address] [place] [address]Dr. Ricardo Rocha LEUKOCYTES Negative Normal NEGATIVE [facility] Comment on above: Performed By: #### U MICRO, UACSIND ####[facility] Yzteoluryx6105 [place] [address]Dr. Nanomarcial Rocha Nitrite Ql (U) Negative Normal NEGATIVE [facility] Comment on above: Performed By: #### U MICRO, UACSIND ####[facility] Xyhfaltipm9328 [place] [address]Dr. Ricardo Rocha pH (U) 6.0 [pH] Normal 5-9 [facility] Comment on above: Performed By: #### U MICRO, UACSIND ####[facility] Olgzqmiife4096 [place] [address]Dr. Ricardo Rocha SPEC GRAVITY 1.010 Normal 1.005-<=1.02 5 [facility] Comment on above: Performed By: #### U MICRO, UACSIND ####[facility] Dejoxgzlyf5603 [place] [address]Dr. Ricardo Rocha UA PROTEIN Negative Normal NEGATIVE/ TRACE [facility] Comment on above: Performed By: #### U MICRO, UACSIND ####[facility] Necutyvewh[address] [place], [place] [address]Dr. Ricardo Rocha UR MICRO IND INDICATED Normal [facility] Comment on above: Performed By: #### U MICRO, UACSIND ####[facility] Bajrcakoqi7840 [place] [address]Dr. Ricardo Rocha Urobilinogen Qn (U) 0.2 {Madeleine'U}/dL Normal 0.2 - 1. 0 [facility] Comment on above: Performed By: #### U MICRO, UACSIND ####[facility] Uwienenwdp[address] [place], [place] [address]Dr. Ricardo Rocha URINE MICROSCOPIC ONLYon BACTERIA NONE SEEN Normal NONE SEEN [facility] Comment on above: Performed By: #### U MICRO, UACSIND ####[facility] H[address]hqcjtpn[address] [place], [place] [id number]. Ricardo Rocha Bacteria identified Cx Nom (U) NOT INDICATED Normal [facility] Comment on above: Performed By: #### U MICRO, UACSIND ####[facility] Acuylfsxjw7966 [place] [address]Dr. Ricardo Rocha CAST NONE SEEN Normal NONE SEEN [facility] Comment on above: Performed By: #### U MICRO, UACSIND ####[facility] Yzwhyzvsyc2873 [place] [address]Dr. Ricardo Rocha Crystals LM Nom (Urine sed) NONE SEEN Normal NONE SEEN [facility] Comment on above: Performed By: #### U MICRO, UACSIND ####[facility] Sbkzdiwoeq24[address] [place], [place] [address]Dr. Ricardo Rocha Epithelial cells LM Ql (Urine sed) FEW Abnormal NONE SEEN /RARE [facility] Comment on above: Performed By: #### U MICRO, UACSIND ####[facility] Cagkxquwwa737[address] [place], [place] [address]Dr. Ricardo Rocha MUCOUS NONE SEEN Normal NONE SEEN [facility] Comment on above: Performed By: #### U MICRO, UACSIND ####[facility] Brykbwqubt[address] [place], [place] [address]Dr. Ricardo Rocha RBC 2-5 Abnormal 0-2 [facility] Comment on above: Performed By: #### U MICRO, UACSIND ####[facility] Idvkhcnhtb05[address] [place], [place] [address]Dr. Ricardo Rocha WBC 2-5 Abnormal NONE SEEN [facility] Comment on above: Performed By: #### U MICRO, UACSIND ####[facility] Xrnqpbmwcz[address] [place], [place] [address]Dr. Ricardo Rocha YEAST PRESENT Abnormal NONE SEEN [facility] Comment on above: Performed By: #### U MICRO, UACSIND ####[facility] Ihukkymoax[address] [place], [place] [address]Dr. Ricardo Rocha CBC AUTO DIFFon 06-14-2022 BASO # 0.0 103/ul Normal 0.0-0.1 [facility] Comment on above: Performed By: #### C BC ####[facility] Homexxrobg1684 [place] [phone]. Ricardo Rocha Basophils/100 WBC (Bld) 0.4 % Normal 0.2-2.0 [facility] Comment on above: Performed By: #### C BC ####[facility] Kxrjwpwbeu4476 [place] [phone]. Ricardo Rocha EO # 0.0 103/ul Normal 0.0-0.7 [facility] Comment on above: Performed By: #### C BC ####[facility] Tlfutvlhcq[address] [place], [place] [id number]. Ricardo Rocha Eosinophils/100 WBC (Bld) 0.4 % Critically low 0.9-7.0 [facility] Comment on above: Performed By: #### C BC ####[facility] Uqplaoqxha7[address] [place], [place] [address]Dr. Ricardo Rocha Erythrocyte distribution width (RBC) [Ratio] 13.8 % Normal 11.0-15.0 [facility] Comment on above: Performed By: #### C BC ####[facility] Uhbvhwxsvn[address] [place], [place] [phone]. Ricardo Rocha Hematocrit (Bld) [Volume fraction] 26.2 % Critically low 36.0-48.0 [facility] Comment on above: Performed By: #### C BC ####[facility] Gxcxltxprn[address] [place], [place] [phone]. Ricardo Rocha Hemoglobin (Bld) [Mass/Vol] 8.3 g/dL Critically low 12.0-16.0 [facility] Comment on above: Performed By: #### C BC ####[facility] Oglnxqmtsh[address] [place], [place] [address]Dr. Ricardo Rocha IG # 0.24 10e3/ul Critically high 0.00-0.03 [facility] Comment on above: Performed By: #### C BC ####[facility] Yxirfljyab[address] [place], [place] [phone]. Ricardo Rocha IG % 2.3 % Critically high 0.0-0.5 [facility] Comment on above: Performed By: #### C BC ####[facility] Iedakbuiqf1219 [place] [phone] Rocha LYMPH # 1.1 103/ul Critically low 1.2-3.8 [facility] Comment on above: Performed By: #### C BC ####[facility] Joralaqgfy8076 [place] [phone]. Ricardo Rocha Lymphocytes/100 WBC (Bld) 10.2 % Critically low 20.5-60.0 [facility] Comment on above: Performed By: #### C BC ####[facility] Ezjsosnnmu9635 [place] [phone]. Ricardo Rocha MANUAL DIFF REQ NO Normal [facility] Comment on above: Performed By: #### C BC ####[facility] Ylvqovicsy8325 [place] [address]DrIrina Rocha MCH (RBC) [Entitic mass] 25.5 pg Critically low 26.7-34.0 [facility] Comment on above: Performed By: #### C BC ####[facility] Afdmhwxkti4493 [place] [phone]. Ricardo Rocha MCHC (RBC) [Mass/Vol] 31.7 g/dL Normal 29.9-35.2 [facility] Comment on above: Performed By: #### C BC ####[facility] Kceuvikvvy2512 [place] [phone] Rocha MCV (RBC) [Entitic vol] 80.6 fL Critically low 81.0-99.0 [facility] Comment on above: Performed By: #### C BC ####[facility] Nukcjpvgsr5223 [place] [phone] Rocha MONO # 0.7 103/ul Normal 0.3-0.8 [facility] Comment on above: Performed By: #### C BC ####[facility] Xfqeetsfws4647 [place] [phone] Rocha Monocytes/100 WBC (Bld) 6.7 % Normal 1.7-12.0 [facility] Comment on above: Performed By: #### C BC ####[facility] Bkyewxqvvx5789 [place] [phone]. Ricardo Rocha NEUT # 8.5 103/ul Critically high 1.4-6.5 [facility] Comment on above: Performed By: #### C BC ####[facility] Cyzxhhsdff2906 [place] [phone]. Ricardo Rocha Neutrophils/100 WBC (Bld) 80.0 % Critically high 43.0-75.0 [facility] Comment on above: Performed By: #### C BC ####[facility] Lfehdnglvp0870 [place] [address]Dr. Ricardo Rocha Platelet mean volume (Bld) [Entitic vol] 12.1 fL Normal 9.5-13.5 [facility] Comment on above: Performed By: #### C BC ####[facility] Rdiqxwotfs9062 [place] [address]Dr. Ricardo Rocha PLT 173 103/ul Normal 150-450 [facility] Comment on above: Performed By: #### C BC ####[facility] Pntntilstm1729 [place] [phone]. Ricardo Rocha RBC 3.25 106/ul Critically low 4.20-5.40 [facility] Comment on above: Performed By: #### C BC ####[facility] Slfloqvtag9756 [place] [phone]. Ricardo Rocha WBC 10.6 103/ul Normal 4.0-11.0 [facility] Comment on above: Performed By: #### C BC ####[facility] Ufdoxyfbta0371 [place] [phone]. Ricardo Rocha POINT OF CARE GLUCOSEon 05-22 Glucose [Mass/Vol] 237 mg/dL Critically high 74-106 [facility] Comment on above: Performed By: #### P OCGLUC ####[facility] Jfugpfkegf4148 [place] [phone]. Ricardo Aj Glucose [Mass/Vol] 296 mg/dL Critically high 74-106 [facility] Comment on above: Performed By: #### P OCGLUC ####[facility] Djlqticdmb9442 [place] [address]Dr. Ricardo Rocha Glucose [Mass/Vol] 406 mg/dL Critically high 74-106 [facility] Comment on above: Performed By: #### P OCGLUC ####[facility] Hmnkymhgkq9788 [place] [address]Dr. Ricardo Rocha Glucose [Mass/Vol] 447 mg/dL Critically high 74-106 [facility] Comment on above: Performed By: #### P OCGLUC ####[facility] Xlnjquxflz0769 [place] [address]Dr. Ricardo Rocha Glucose [Mass/Vol] 319 mg/dL Critically high 74-106 [facility] Comment on above: Performed By: #### P OCGLUC ####[facility] Cnwjdzhiga5612 [place] [address]Dr. Ricardo Rocha PROF 14(COMP METB)on 022 Albumin [Mass/Vol] 1.6 g/dL Critically low 3.4-5.0 [facility] Comment on above: Performed By: #### C MP ####[facility] Nqutkkfarg[address] [place], [place] [address]Dr. Nanomarcial Aj Albumin/Globulin [Mass ratio] 0.3 {ratio} Normal [facility] Comment on above: Performed By: #### C MP ####[facility] Egaufukvkl6354 [place] [address]Dr. Nanomarcial Aj ALP [Catalytic activity/Vol] 201 U/L Critically high 46-116 [facility] Comment on above: Performed By: #### C MP ####[facility] Trwtpyknwl6346 [place] [address]Dr. Ricardo Rocha ALT [Catalytic activity/Vol] 23 U/L Normal 14-59 [facility] Comment on above: Performed By: #### C MP ####[facility] Ojhyagcoov5881 [place] [address]Dr. Ricardo Rocha Anion gap [Moles/Vol] 16.0 mmol/L Normal [facility] Comment on above: Performed By: #### C MP ####[facility] Aqteznseqv1600 [place] [address]Dr. Ricardo Rocha AST [Catalytic activity/Vol] 21 U/L Normal 15-37 [facility] Comment on above: Performed By: #### C MP ####[facility] Qvtyzchckz6863 [place] [phone]. Ricardo Rocha Bilirubin [Mass/Vol] 0.4 mg/dL Normal 0.2-1.0 [facility] Comment on above: Performed By: #### C MP ####[facility] Qjnvjjsrgq[address] [place], [place] [address]Dr. Ricardo Aj Calcium [Mass/Vol] 7.6 mg/dL Critically low 8.5-10.1 [facility] Comment on above: Performed By: #### C MP ####[facility] Iknfruzzjk[address] [place], [place] [address]Dr. Ricardo Aj Chloride [Moles/Vol] 105 mmol/L Normal 98-107 [facility] Comment on above: Performed By: #### C MP ####[facility] Krhtksdjle43[address] [place], [place] [address]Dr. Ricardo Aj CO2 [Moles/Vol] 17.3 mmol/L Critically low 21.0-32.0 [facility] Comment on above: Performed By: #### C MP ####[facility] Pzkdebmmwx88[address] [place], [place] [address]Dr. Ricardo Aj Creatinine [Mass/Vol] 1.54 mg/dL Critically high 0.55-1.02 [facility] Comment on above: Performed By: #### C MP ####[facility] Hzftrrelty[address] [place], [place] [address]Dr. Ricardo Rocha EGFR-AF [place] 41 mL/min/1.73m2 Critically low >=60 [facility] Comment on above: Performed By: #### C MP ####[facility] Vtguqncgai[address] [place], [place] [address]Dr. Ricardo Rocha EGFR-NON AF [place] 34 mL/min/1.73m2 Critically low >=60 [facility] Comment on above: Performed By: #### C MP ####[facility] Hmluyvnyxg6087 [place] [address]Dr. Ricardo Rocha Globulin (S) [Mass/Vol] 4.7 g/dL Normal [facility] Comment on above: Performed By: #### C MP ####[facility] Qhkfccrurx70[address] [place], [place] [address]Dr. Ricardo Rocha Glucose [Mass/Vol] 277 mg/dL Critically high 74-106 [facility] Comment on above: Performed By: #### C MP ####[facility] Rjxqfuukkx86[address] [place], [place] [address]Dr. Ricardo Aj Potassium [Moles/Vol] 3.3 mmol/L Critically low 3.5-5.1 [facility] Comment on above: Performed By: #### C MP ####[facility] Qlolektfrf[address] [place], [place] [address]Dr. Ricardo Rocha Protein [Mass/Vol] 6.3 g/dL Critically low 6.4-8.2 [facility] Comment on above: Performed By: #### C MP ####[facility] Rjsdgdptvd[address] [place], [place] [address]Dr. Ricardo Rocha Sodium [Moles/Vol] 135 mmol/L Critically low 136-145 [facility] Comment on above: Performed By: #### C MP ####[facility] Huhygffzxf[address] [place], [place] [address]Dr. Ricardo Rocha Urea nitrogen [Mass/Vol] 29.0 mg/dL Critically high 7.0-18.0 [facility] Comment on above: Performed By: #### C MP ####[facility] Vaygpdmwry[address] [place], [place] [address]Dr. Ricardo Aj Urea nitrogen/Creatinine [Mass ratio] 18.8 mg/mg Normal [facility] Comment on above: Performed By: #### C MP ####[facility] Wpdtkhmrvh8[address] [place], [place] [address]Dr. Ricardo Aj CBC AUTO DIFFon 06-13-2022 BASO # 0.0 103/ul Normal 0.0-0.1 [facility] Comment on above: Performed By: #### C BC ####[facility] Zpeieskkwo[address] [place] [address]Dr. Ricardo Rocha Basophils/100 WBC (Bld) 0.2 % Normal 0.2-2.0 [facility] Comment on above: Performed By: #### C BC ####[facility] Scjbeyezzf242[address] [place], [place] [address]Dr. Ricardo Rocha EO # 0.1 103/ul Normal 0.0-0.7 [facility] Comment on above: Performed By: #### C BC ####[facility] Bqgmvslekb9533[address] [place], [place] [address]Dr. Ricardo Rocha Eosinophils/100 WBC (Bld) 0.6 % Critically low 0.9-7.0 [facility] Comment on above: Performed By: #### C BC ####[facility] Sqhveaqvro027[address] [place], [place] [address]Dr. Ricardo Rocha Erythrocyte distribution width (RBC) [Ratio] 14.2 % Normal 11.0-15.0 [facility] Comment on above: Performed By: #### C BC ####[facility] Dtfbayighl917[address] [place], [place] [address]Dr. Ricardo Rocha Hematocrit (Bld) [Volume fraction] 27.9 % Critically low 36.0-48.0 [facility] Comment on above: Performed By: #### C BC ####[facility] Sliwwujhtd0913[address] [place], [place] [address]Dr. Ricardo Rocha Hemoglobin (Bld) [Mass/Vol] 8.6 g/dL Critically low 12.0-16.0 [facility] Comment on above: Performed By: #### C BC ####[facility] Rnvxeujyuw078[address] [place], [place] [address]Dr. Nanomarcial Rocha IG # 0.08 10e3/ul Critically high 0.00-0.03 [facility] Comment on above: Performed By: #### C BC ####[facility] Xivntyinaw[address] [place] [id number]. Nanomarcial Rocha IG % 0.8 % Critically high 0.0-0.5 [facility] Comment on above: Performed By: #### C BC ####[facility] X[address]lfcksdco72[address] [place] [address]Dr. Nanomarcial Aj LYMPH # 0.9 103/ul Critically low 1.2-3.8 [facility] Comment on above: Performed By: #### C BC ####[facility] Dbuaqyznuw0545 [place] [address]Dr. Ricardo Aj Lymphocytes/100 WBC (Bld) 8.9 % Critically low 20.5-60.0 [facility] Comment on above: Performed By: #### C BC ####[facility] Glqklocyfy8377 [place] [address]Dr. Ricardo Rocha MANUAL DIFF REQ NO Normal [facility] Comment on above: Performed By: #### C BC ####[facility] Expehccrxw1451 [place] [address]Dr. Ricardo Aj MCH (RBC) [Entitic mass] 25.1 pg Critically low 26.7-34.0 [facility] Comment on above: Performed By: #### C BC ####[facility] Pruyvixwqo[address] [place], [place] [address]Dr. Ricardo Rocha MCHC (RBC) [Mass/Vol] 30.8 g/dL Normal 29.9-35.2 [facility] Comment on above: Performed By: #### C BC ####[facility] Nmqyxqkxkj5031 [place] [address]Dr. Ricardo Aj MCV (RBC) [Entitic vol] 81.6 fL Normal 81.0-99.0 [facility] Comment on above: Performed By: #### C BC ####[facility] Gdelaigthd[address] [place], [place] [address]Dr. Ricardo Rocha MONO # 0.6 103/ul Normal 0.3-0.8 [facility] Comment on above: Performed By: #### C BC ####[facility] Frudllcpzz7639[address] [place], [place] [address]Dr. Ricardo Rocha Monocytes/100 WBC (Bld) 5.7 % Normal 1.7-12.0 [facility] Comment on above: Performed By: #### C BC ####[facility] Gapwofleex37[address] [place] [address]Dr. Ricardo Rocha NEUT # 8.4 103/ul Critically high 1.4-6.5 [facility] Comment on above: Performed By: #### C BC ####[facility] Oabahlujdc25[address] [place] [address]Dr. Ricardo Rocha Neutrophils/100 WBC (Bld) 83.8 % Critically high 43.0-75.0 [facility] Comment on above: Performed By: #### C BC ####[facility] Eyuujharpf8836 [place] [address]Dr. Ricardo Rocha Platelet mean volume (Bld) [Entitic vol] 12.1 fL Normal 9.5-13.5 [facility] Comment on above: Performed By: #### C BC ####[facility] Kjfaxsmgot09[address] [place] [address]Dr. Ricardo Rocha PLT 149 103/ul Critically low 150-450 [facility] Comment on above: Performed By: #### C BC ####[facility] Nhpsoayria8794 [place] [address]Dr. Ricardo Rocha RBC 3.42 106/ul Critically low 4.20-5.40 [facility] Comment on above: Performed By: #### C BC ####[facility] Jsxagdmaiq3985 [place] [address]Dr. Ricardo Rocha WBC 10.0 103/ul Normal 4.0-11.0 [facility] Comment on above: Performed By: #### C BC ####[facility] Qjiahkvzkh7711 [place] [address]Dr. Ricardo Rocha CULTURE OTHERon 06-13-2022 CULTURE OTHER Normal [facility] Comment on above: Performed By: #### O THCX ####[facility] Vkpaljbkdy1039[address] [place], [place] [address]Dr. Ricardo Rocha CULTURE OTHER Normal [facility] Comment on above: Performed By: #### O THCX ####[facility] Hgkmjxjifk6502 [place] [phone]. Nanomarcial Rocha CULTURE OTHER Normal [facility] Comment on above: Performed By: #### O THCX ####[facility] Ghxmjcihiu0122 [place] [phone]. Nanomarcial Rocha GI PANEL (PCR)on 06-13-2022 Adenovirus F 40/41 Not detected Normal NOT DETECTED [facility] Comment on above: Performed By: #### G IPANEL ####[facility] Lmqimnrpzy9[address] [place], [place] [phone]. Ricardo Rocha Astrovirus Not detected Normal NOT DETECTED [facility] Comment on above: Performed By: #### G IPANEL ####[facility] Euykyuncug219[address] [place], [place] [address]Dr. Ricardo Rocha C. Diff toxin A/B Not detected Normal NOT DETECTED [facility] Comment on above: Performed By: #### G IPANEL ####[facility] Lienkssrkf[address] [place], [place] [phone]. Ricardo Rocha Campylobacter Not detected Normal NOT DETECTED [facility] Comment on above: Performed By: #### G IPANEL ####[facility] Kkjtitkdsk[address] [place], [place] [phone]. Ricardo Rocha Cryptosporidium Not detected Normal NOT DETECTED [facility] Comment on above: Performed By: #### G IPANEL ####[facility] Kohkukxusp2368 [place] [phone]. Ricardo Rocha Cyclos. Cayetanensis Not detected Normal NOT DETECTED [facility] Comment on above: Performed By: #### G IPANEL ####[facility] Bcrxlqumfc[address] [place], [place] [address]Dr. Ricardo Rocha E. Coli O157 Not Applicable Normal Not Applicable [facility] Comment on above: Performed By: #### G IPANEL ####[facility] Huhoizwqqi[address] [place], [place] [address]Dr. Ricardo Rocha E. histolytica Not detected Normal NOT DETECTED [facility] Comment on above: Performed By: #### G IPANEL ####[facility] Vplhyuspgz3464 [place] [address]Dr. Nanomarcial Rocha EAEC Not detected Normal NOT DETECTED [facility] Comment on above: Performed By: #### G IPANEL ####[facility] Posrfuetjp137[address] [place], [place] [address]Dr. Ricardo Rocha EIEC Not detected Normal NOT DETECTED [facility] Comment on above: Performed By: #### G IPANEL ####[facility] Xnjrydopjc3315[address] [place], [place] [address]Dr. [facility] EPEC Not detected Normal NOT DETECTED [facility] Comment on above: Performed By: #### G IPANEL ####[facility] Wcwhsncrgu97[address] [place], [place] [address]Dr. Ricardo Rocha ETEC Not detected Normal NOT DETECTED [facility] Comment on above: Performed By: #### G IPANEL ####[facility] Wfdvfwizle7[address] [place], [place] [address]Dr. Ricardo Rocha G. Lamblia Not detected Normal NOT DETECTED [facility] Comment on above: Performed By: #### G IPANEL ####[facility] Xmeuqqntzq[address] [place], [place] [address]Dr. Ricardo Rocha GIPANEL CONTROLS PASSED Normal [facility] Comment on above: Performed By: #### G IPANEL ####[facility] Dbbcopuszg299[address] [place], [place] [address]Dr. Ricardo CASAS MONIQUE HEADER GI PANEL BACTERIA Normal [facility] Comment on above: Performed By: #### G IPANEL ####[facility] Oxattffchs[address] [place], [place] [address]Dr. Ricardo MARTINEZHD ECOLI GI PANEL DIARRHEAGEN IC E.COLI / SHIGELLA Normal [facility] Comment on above: Performed By: #### G IPANEL ####[facility] Sitijrurhq37[address] [place], [place] [address]Dr. Ricardo CASASNLHD INFO SEE BELOW Normal [facility] Comment on above: Result Comment: EAEC - Enteroaggregative E. Coli EPEC- Enteropathogenic E. Coli ETEC- Enterotoxigenic E. Coli lt/st STEC- Shigella-like toxin-producing E. Coli stx1/stx2 EIEC- Shigella/Enteroinvasive E. Coli Performed By: #### G IPANEL ####[facility] Lemrcohopu0416 [place] [address]Dr. Nanomarcial Rocha GIPNLHD PARASITES GI PANEL PARASITES Normal [facility] Comment on above: Performed By: #### G IPANEL ####[facility] Tidqvfcznt219[address] [place], [place] [address]Dr. Ricardo Rocha GIPNLHD VIRUS GI PANEL VIRUSES Normal [facility] Comment on above: Performed By: #### G IPANEL ####[facility] Qcefngesby3818[address] [place], [place] [address]Dr. Ricardo Rocha Norovirus GI/GII Not detected Normal NOT DETECTED [facility] Comment on above: Performed By: #### G IPANEL ####[facility] Ratsjxwjpr70[address] [place], [place] [address]Dr. Nanomarcial Rocha P. Shigelloides Not detected Normal NOT DETECTED [facility] Comment on above: Performed By: #### G IPANEL ####[facility] Fbnkcephyj2459[address] [place], [place] [address]Dr. Ricardo Rocha Rotavirus A Not detected Normal NOT DETECTED [facility] Comment on above: Performed By: #### G IPANEL ####[facility] Imvhzbuema27[address] [place], [place] [address]Dr. Nanomarcial Rocha Salmonella Not detected Normal NOT DETECTED [facility] Comment on above: Performed By: #### G IPANEL ####[facility] Xnvabatxur43[address] [place], [place] [address]Dr. marcial Rocha Sapovirus Not detected Normal NOT DETECTED [facility] Comment on above: Performed By: #### G IPANEL ####[facility] Qwcafkrvhz77[address] [place], [place] [address]Dr. Ricardo Rocha STEC Not detected Normal NOT DETECTED [facility] Comment on above: Performed By: #### G IPANEL ####[facility] Tegyiiyfoh08[address] [place] [address]Dr. Ricardo Rocha Vibrio Not detected Normal NOT DETECTED [facility] Comment on above: Performed By: #### G IPANEL ####[facility] Ewdhhwkjtw9276 [place] [address]Dr. Ricardo Rocha Vibrio Cholera Not detected Normal NOT DETECTED [facility] Comment on above: Performed By: #### G IPANEL ####[facility] Tpocugsrea[address] [place], [place] [address]Dr. Ricardo Rocha Y. Enterocolitica Not detected Normal NOT DETECTED [facility] Comment on above: Performed By: #### G IPANEL ####[facility] Kfqkjgkuoq[address] [place], [place] [address]Dr. Ricardo Rocha IRON AND TIBCon 06-13-2022 % SATURATION 19.9 % Normal [facility] Comment on above: Performed By: #### F ETIBC, B12FOL ####[facility] Oxbkehspbn[address] [place], [place] [address]Dr. Ricardo Rocha Iron [Mass/Vol] 75.0 ug/dL Normal 50.0-170.0 [facility] Comment on above: Performed By: #### F ETIBC, B12FOL ####[facility] Wrtgekablv[address] [place], [place] [address]Dr. Ricardo Rocha TIBC DIRECT 376.0 ug/dL Normal 250.0-450.0 [facility] Comment on above: Performed By: #### F ETIBC, B12FOL ####[facility] Odkkbzqzyi7100[address] [place], [place] [address]Dr. Ricardo Rocha POINT OF CARE GLUCOSEon 05-22 Glucose [Mass/Vol] 238 mg/dL Critically high 74-106 [facility] Comment on above: Performed By: #### P OCGLUC ####[facility] Ibenegltcz[address] [place], [place] [address]Dr. Ricardo Rocha Glucose [Mass/Vol] 146 mg/dL Critically high 74-106 [facility] Comment on above: Performed By: #### P OCGLUC ####[facility] Ravbmljobk9269 [place] [phone]. Ricardo Rocha Glucose [Mass/Vol] 143 mg/dL Critically high 74-106 [facility] Comment on above: Performed By: #### P OCGLUC ####[facility] Mvipbgqzwi3337 [place] [phone]. Ricardo Rocha Glucose [Mass/Vol] 205 mg/dL Critically high 74-106 [facility] Comment on above: Performed By: #### P OCGLUC ####[facility] Omhwrthput0161 [place] [address]Dr. Ricardo Rocha Glucose [Mass/Vol] 227 mg/dL Critically high 74-106 [facility] Comment on above: Performed By: #### P OCGLUC ####[facility] Ahkgcpwsnz3809 [place] [address]Dr. Nanomarcial Rocha PROF 14(COMP METB)on 06-13- 022 Albumin [Mass/Vol] 1.5 g/dL Critically low 3.4-5.0 [facility] Comment on above: Performed By: #### C MP ####[facility] Mdkkrbymyn2374 [place] [address]Dr. Ricardo Rocha Albumin/Globulin [Mass ratio] 0.3 {ratio} Normal [facility] Comment on above: Performed By: #### C MP ####[facility] Jyzvjsbxjd3906 [place] [address]Dr. Ricardo Aj ALP [Catalytic activity/Vol] 136 U/L Critically high 46-116 [facility] Comment on above: Performed By: #### C MP ####[facility] Qnxonacjiv1497 [place] [address]Dr. Ricardo Aj ALT [Catalytic activity/Vol] 18 U/L Normal 14-59 [facility] Comment on above: Performed By: #### C MP ####[facility] Xobxcitrdp8880 [place] [address]Dr. Ricardo Aj Anion gap [Moles/Vol] 10.2 mmol/L Normal [facility] Comment on above: Performed By: #### C MP ####[facility] Xprxkswbxo0599 [place] [phone]. Ricardo Rocha AST [Catalytic activity/Vol] 37 U/L Normal 15-37 [facility] Comment on above: Performed By: #### C MP ####[facility] Puemrvqnrx1459 [place] [phone]. Ricardo Rocha Bilirubin [Mass/Vol] 0.4 mg/dL Normal 0.2-1.0 [facility] Comment on above: Performed By: #### C MP ####[facility] Ipcgvmyzvp5655 [place] [phone]. Ricardo Rocha Calcium [Mass/Vol] 8.0 mg/dL Critically low 8.5-10.1 [facility] Comment on above: Performed By: #### C MP ####[facility] Jbaulfqymu2040[address] [place], [place] [address]Dr. Ricardo Rocha Chloride [Moles/Vol] 110 mmol/L Critically high 98-107 [facility] Comment on above: Performed By: #### C MP ####[facility] Jqrmfsogvj[address] [place], [place] [address]Dr. Ricardo Rocha CO2 [Moles/Vol] 18.2 mmol/L Critically low 21.0-32.0 [facility] Comment on above: Performed By: #### C MP ####[facility] Aitwqpdqxt5000 [place] [phone]. Ricardo Rocha Creatinine [Mass/Vol] 1.76 mg/dL Critically high 0.55-1.02 [facility] Comment on above: Performed By: #### C MP ####[facility] Crqzqrpkpa2430 [place] [phone]. Ricardo Rocha EGFR-AF [place] 35 mL/min/1.73m2 Critically low >=60 [facility] Comment on above: Performed By: #### C MP ####[facility] Ymebyhuquq0[address] [place], [place] [address]Dr. Ricardo Rocha EGFR-NON AF [place] 29 mL/min/1.73m2 Critically low >=60 [facility] Comment on above: Performed By: #### C MP ####[facility] Aadcojzhbf2104 [place] [phone]. Ricardo Rocha Globulin (S) [Mass/Vol] 4.7 g/dL Normal [facility] Comment on above: Performed By: #### C MP ####[facility] Ohgtwffdnm4667 [place] [phone]. Ricardo Rocha Glucose [Mass/Vol] 223 mg/dL Critically high 74-106 [facility] Comment on above: Performed By: #### C MP ####[facility] Oikqxzkfoi59[address] [place], [place] [address]Dr. Ricardo Rocha Potassium [Moles/Vol] 3.4 mmol/L Critically low 3.5-5.1 [facility] Comment on above: Performed By: #### C MP ####[facility] Nrjkouyzii[address] [place], [place] [address]Dr. Ricardo Rocha Protein [Mass/Vol] 6.2 g/dL Critically low 6.4-8.2 [facility] Comment on above: Performed By: #### C MP ####[facility] Ycxssajbgy6960[address] [place], [place] [address]Dr. Ricardo Rocha Sodium [Moles/Vol] 135 mmol/L Critically low 136-145 [facility] Comment on above: Performed By: #### C MP ####[facility] Diidlmuwgk0735[address] [place], [place] [address]Dr. Ricardo Rocha Urea nitrogen [Mass/Vol] 33.0 mg/dL Critically high 7.0-18.0 [facility] Comment on above: Performed By: #### C MP ####[facility] Wlvnagzkzf2349[address] [place], [place] [address]Dr. Ricardo Rocha Urea nitrogen/Creatinine [Mass ratio] 18.8 mg/mg Normal [facility] Comment on above: Performed By: #### C MP ####[facility] Jnjdjdnuce174[address] [place], [place] [address]Dr. Ricardo Aj VANCOMYCIN TROUGHon 10-24-20 22 VANCOMYCIN TROUGH 15.2 ug/ml Normal 5.0-20.0 [facility] Comment on above: Performed By: #### V ANCT ####[facility] Szenuzrkzz7[address] [place] [address]Dr. Ricardo Rocha VIT B12 AND FOLATEon 022 Cobalamin (Vitamin B12) [Mass/Vol] 874.0 pg/mL Normal 193.0-986.0 [facility] Comment on above: Performed By: #### F ETIBC, B12FOL ####[facility] Mtbljvlggx8418 [place] [address]Dr. Ricardo Rocha FOLATE 6.60 ng/mL Critically low 8.60-58.90 [facility] Comment on above: Performed By: #### F ETIBC, B12FOL ####[facility] Kaowpanmth[address] [place], [place] [address]Dr. Ricardo Rocha XR FOOT LT MIN 3 VIEWSon XR FOOT LT MIN 3 VIEWS Normal [facility] CBC W MANUAL DIFFon 06-12-20 ATYPICAL LYMPH # Normal [facility] Comment on above: Performed By: #### C DWAINE ####[facility] Rqvjsthtpj85[address] [place], [place] [address]Dr. Ricardo Rocha ATYPICAL LYMPH % Normal [facility] Comment on above: Performed By: #### C DWAINE ####[facility] Thsixcdqei[address] [place], [place] [address]Dr. Ricardo Rocha BAND # 1.9 103/ul Critically high 0.0-0.3 [facility] Comment on above: Performed By: #### C BCRED ####[facility] Gdnazgvtfu3035 [place] [address]Dr. Ricardo Rocha BAND % 17 % Critically high 0-5 [facility] Comment on above: Performed By: #### C BCRED ####[facility] Exzcipzneo8934[address] [place], [place] [address]Dr. Nanomarcial Aj BASOM # 0.00 103/ul Normal 0.00-0.10 [facility] Comment on above: Performed By: #### C DWAINE ####[facility] Vusebawocs[address] [place], [place] [address]Dr. Ricardo Rocha BASOM % 0.0 % Critically low 0.2-2.0 [facility] Comment on above: Performed By: #### C BCMAN ####[facility] Codusdtsch3595 [place] [phone]. Ricardo Rocha BLAST # Normal [facility] Comment on above: Performed By: #### C BCMAN ####[facility] Ndgqhdeehq5969 [place] [phone]. Ricardo Rocha BLAST % Normal [facility] Comment on above: Performed By: #### C BCRED ####[facility] Briihhwbuh[address] [place], [place] [address]Dr. Ricardo Rocha CORRECTED WBC Normal 4.0-11.0 [facility] Comment on above: Performed By: #### C DWAINE ####[facility] Rqhybmnzbm[address] [place], [place] [address]Dr. Ricardo Rocha EOS # 0.00 103/ul Normal 0.00-0.70 [facility] Comment on above: Performed By: #### C DWAINE ####[facility] Qwxmdkxoyk25[address] [place], [place] [address]Dr. Ricardo Rocha EOS% 0.0 % Critically low 0.9-7.0 [facility] Comment on above: Performed By: #### C DWAINE ####[facility] Kksvdqjsdb9[address] [place], [place] [address]Dr. Ricardo Rocha HCT 28.0 % Critically low 36.0-48.0 [facility] Comment on above: Performed By: #### C BCRED ####[facility] Nuxuxblyko[address] [place], [place] [address]Dr. Ricardo Rocha HGB 8.6 g/dl Critically low 12.0-16.0 [facility] Comment on above: Performed By: #### C BCRED ####[facility] Ljuskpszbc1787 [place] [phone]. Ricardo Rocha HYPOCHROMASIA SLIGHT Normal [facility] Comment on above: Performed By: #### C BCRED ####[facility] Wnkbvnjdtj4906 [place] [phone]. Ricardo Rocha LYMPHM # 0.77 103/ul Critically low 1.20-3.80 [facility] Comment on above: Performed By: #### C DWAINE ####[facility] Fcapdjydlo4707 [place] [phone]. Ricardo Rocha LYMPHM% 7.0 % Critically low 20.5-60.0 [facility] Comment on above: Performed By: #### C DWAINE ####[facility] Sxhppznonb2831 [place] [phone]. Ricardo Rocha MCH 25.1 pg Critically low 26.7-34.0 [facility] Comment on above: Performed By: #### C DWAINE ####[facility] Vkqwmpccdd[address] [place], [place] [address]Dr. Ricardo Rocha MCHC 30.7 g/dl Normal 29.9-35.2 [facility] Comment on above: Performed By: #### C DWAINE ####[facility] Stdyxjdcht[address] [place], [place] [address]Dr. Ricardo Rocha MCV 81.9 fL Normal 81.0-99.0 [facility] Comment on above: Performed By: #### C DWAINE ####[facility] Gmfggxngxf[address] [place], [place] [address]Dr. Ricardo Rocha METAMYELOCYTE # Normal [facility] Comment on above: Performed By: #### C DWAINE ####[facility] Jfihpbujam[address] [place], [place] [address]Dr. Ricardo Rocha METAMYELOCYTE % Normal [facility] Comment on above: Performed By: #### C DWAINE ####[facility] Rhyctujmtg3269 [place] [phone]. Ricardo Rocha MONOM# 0.11 103/ul Critically low 0.30-0.80 [facility] Comment on above: Performed By: #### C DWAINE ####[facility] Ajowgnamjl0402 [place] [phone]. Ricardo Rocha MONOM% 1.0 % Critically low 1.7-12.0 [facility] Comment on above: Performed By: #### C DWAINE ####[facility] Dikllpokwc8539 [place] [phone]. Ricardo Rocha MPV 12.6 fL Normal 9.5-13.5 [facility] Comment on above: Performed By: #### C DWAINE ####[facility] Lixbkegnph6831 [place] [phone]. Ricardo Rocha MYELOCYTE # Normal [facility] Comment on above: Performed By: #### C DWAINE ####[facility] Axsqgsmcmm7166 [place] [phone]. Ricardo Rocha MYELOCYTE % Normal [facility] Comment on above: Performed By: #### C DWAINE ####[facility] Btzcyjmywl5475 [place] [phone]. Ricardo Rocha NRBC Normal [facility] Comment on above: Performed By: #### C DWAINE ####[facility] Utozwsbriw5731 [place] [address]Dr. Ricardo Rocha PLT 140 103/ul Critically low 150-450 [facility] Comment on above: Performed By: #### C DWAINE ####[facility] Wkfqescaep1198 [place] [phone]. Ricardo Rocha RBC 3.42 106/ul Critically low 4.20-5.40 [facility] Comment on above: Performed By: #### C DWAINE ####[facility] Djfuypkgai5216 [place] [phone]. Ricardo Rocha RDW 13.7 % Normal 11.0-15.0 [facility] Comment on above: Performed By: #### C DWAINE ####[facility] Xcahqklfzv7458 [place] [phone]. Ricardo Rocha SEG # 8.25 103/ul Critically high 1.40-6.50 [facility] Comment on above: Performed By: #### C DWAINE ####[facility] Mhyzvovnmr2347 [place] [phone]. Ricardo Rohca SEG % 75.0 % Normal 43.0-75.0 [facility] Comment on above: Performed By: #### C BCMAN ####[facility] Wngnlsjjpk[address] [place] [address]Dr. Ricardo Rocha WBC 11.0 103/ul Normal 4.0-11.0 [facility] Comment on above: Performed By: #### C BCMAN ####[facility] Essciqyron[address] [place] [address]Dr. Ricardo Rocha POINT OF CARE GLUCOSEon 05-22 Glucose [Mass/Vol] 200 mg/dL Critically high 74-106 [facility] Comment on above: Performed By: #### P OCGLUC ####[facility] Mpbrgvpubs[address] [place], [place] [address]Dr. Ricardo Rocha Glucose [Mass/Vol] 165 mg/dL Critically high 74-106 [facility] Comment on above: Performed By: #### P OCGLUC ####[facility] Rhcaxoqttt[address] [place], [place] [address]Dr. Ricardo Rocha Glucose [Mass/Vol] 152 mg/dL Critically high 74-106 [facility] Comment on above: Performed By: #### P OCGLUC ####[facility] Dwxdwxlkxa[address] [place], [place] [address]Dr. Ricardo Rocha Glucose [Mass/Vol] 154 mg/dL Critically high 74-106 [facility] Comment on above: Performed By: #### P OCGLUC ####[facility] Zskrdmcrur[address] [place] [address]Dr. Ricardo Rocha PROF 14(COMP METB)on 022 Albumin [Mass/Vol] 1.9 g/dL Critically low 3.4-5.0 [facility] Comment on above: Performed By: #### C MP ####[facility] Hqfirqahbg80[address] [place] [address]Dr. Ricardo Rocha Albumin/Globulin [Mass ratio] 0.4 {ratio} Normal [facility] Comment on above: Performed By: #### C MP ####[facility] Glefzdutbt[address] [place] [address]Dr. Ricardo Rocha ALP [Catalytic activity/Vol] 68 U/L Normal 46-116 [facility] Comment on above: Performed By: #### C MP ####[facility] Qcoafhkasd4634 [place] [address]Dr. Ricardo Rocha ALT [Catalytic activity/Vol] 16 U/L Normal 14-59 [facility] Comment on above: Performed By: #### C MP ####[facility] Mizxzlcitz[address] [place], [place] [address]Dr. Ricardo Rocha Anion gap [Moles/Vol] 15.1 mmol/L Normal [facility] Comment on above: Performed By: #### C MP ####[facility] Qxdactkhlj64[address] [place], [place] [address]Dr. Ricardo Aj AST [Catalytic activity/Vol] 26 U/L Normal 15-37 [facility] Comment on above: Performed By: #### C MP ####[facility] Hiovlhcdly8[address] [place], [place] [address]Dr. Ricardo Aj Bilirubin [Mass/Vol] 0.3 mg/dL Normal 0.2-1.0 [facility] Comment on above: Performed By: #### C MP ####[facility] Eccuoimjzh[address] [place], [place] [address]Dr. Ricardo Aj Calcium [Mass/Vol] 8.0 mg/dL Critically low 8.5-10.1 [facility] Comment on above: Performed By: #### C MP ####[facility] Hcobzdynnn[address] [place], [place] [address]Dr. Ricardo Aj Chloride [Moles/Vol] 110 mmol/L Critically high 98-107 [facility] Comment on above: Performed By: #### C MP ####[facility] Rsynxmanac[address] [place], [place] [address]Dr. Ricardo Aj CO2 [Moles/Vol] 18.0 mmol/L Critically low 21.0-32.0 [facility] Comment on above: Performed By: #### C MP ####[facility] Ruknlfdibj9[address] [place], [place] [address]Dr. Ricardo Aj Creatinine [Mass/Vol] 1.97 mg/dL Critically high 0.55-1.02 [facility] Comment on above: Performed By: #### C MP ####[facility] Yaeiieuqun[address] [place] [address]Dr. Ricardo Rocha EGFR-AF [place] 31 mL/min/1.73m2 Critically low >=60 [facility] Comment on above: Performed By: #### C MP ####[facility] Nfnbvefask[address] [place] [address]Dr. Ricardo Rocha EGFR-NON AF [place] 26 mL/min/1.73m2 Critically low >=60 [facility] Comment on above: Performed By: #### C MP ####[facility] Bbkxywlygn47[address] [place], [place] [address]Dr. Ricardo Rocha Globulin (S) [Mass/Vol] 5.2 g/dL Normal [facility] Comment on above: Performed By: #### C MP ####[facility] Empzxlsxgi259[address] [place], [place] [address]Dr. Ricardo Rocha Glucose [Mass/Vol] 146 mg/dL Critically high 74-106 [facility] Comment on above: Performed By: #### C MP ####[facility] Jfzdrasjte59[address] [place], [place] [address]Dr. Ricardo Rocha Potassium [Moles/Vol] 3.1 mmol/L Critically low 3.5-5.1 [facility] Comment on above: Performed By: #### C MP ####[facility] Wxwefvtvjv347[address] [place], [place] [address]Dr. Ricardo Rocha Protein [Mass/Vol] 7.1 g/dL Normal 6.4-8.[address] [facility] Comment on above: Performed By: #### C MP ####[facility] Jnrpcebicr[address] [place], [place] [address]Dr. Ricardo Rocha Sodium [Moles/Vol] 140 mmol/L Normal 136-145 [facility] Comment on above: Performed By: #### C MP ####[facility] Rydlptprhn056[address] [place], [place] [address]Dr. Ricardo Rocha Urea nitrogen [Mass/Vol] 30.0 mg/dL Critically high 7.0-18.0 [facility] Comment on above: Performed By: #### C MP ####[facility] Uabgvtyccj[address] [place] [address]Dr. Ricardo Rocha Urea nitrogen/Creatinine [Mass ratio] 15.2 mg/mg Normal [facility] Comment on above: Performed By: #### C MP ####[facility] Jgxchsmlkx4483 [place] [address]Dr. Ricardo Rocha CBC W MANUAL DIFFon 06-11-20 22 ATYPICAL LYMPH # Normal [facility] Comment on above: Performed By: #### C BCMAN ####[facility] Sdfcedpauc8[address] [place], [place] [address]Dr. Ricardo Rocha ATYPICAL LYMPH % Normal [facility] Comment on above: Performed By: #### C BCMAN ####[facility] Ayxnwghedi00[address] [place], [place] [address]Dr. Ricardo Rocha BAND # 1.1 103/ul Critically high 0.0-0.3 [facility] Comment on above: Performed By: #### C BCMAN ####[facility] Wfukozmbwo98[address] [place], [place] [address]Dr. Ricardo Rocha BAND % 12 % Critically high 0-5 [facility] Comment on above: Performed By: #### C BCMAN ####[facility] Lehqsnvbet9[address] [place], [place] [address]Dr. Ricardo Rocha BASOM # 0.00 103/ul Normal 0.00-0.10 [facility] Comment on above: Performed By: #### C BCMAN ####[facility] Smbrkvzbgq70[address] [place] [address]Dr. Ricardo Rocha BASOM % 0.0 % Critically low 0.2-2.0 [facility] Comment on above: Performed By: #### C BCMAN ####[facility] Wicdcsqgfi95[address] [place] [address]Dr. Ricardo Rocha BLAST # Normal [facility] Comment on above: Performed By: #### C BCMAN ####[facility] Kxioavagpg9[address] [place] [phone]. Ricardo Rocha BLAST % Normal [facility] Comment on above: Performed By: #### C DWAINE ####[facility] Mxwjsuwieu79[address] [place] [phone]. Ricardo Rocha CORRECTED WBC Normal 4.0-11.0 [facility] Comment on above: Performed By: #### C DWAINE ####[facility] Cgkzznlowq9346 [place] [phone]. Ricardo Rocha EOS # 0.00 103/ul Normal 0.00-0.70 [facility] Comment on above: Performed By: #### C DWAINE ####[facility] Dpachoaoht0924 [place] [phone]. Ricardo Rocha EOS% 0.0 % Critically low 0.9-7.0 [facility] Comment on above: Performed By: #### C DWAINE ####[facility] Rpzqmsaigj7875 [place] [phone]. Ricardo Rocha HCT 32.6 % Critically low 36.0-48.0 [facility] Comment on above: Performed By: #### C DWAINE ####[facility] Hgwlf[address]rm[address] [place], [place] [address]Dr. Ricardo Rocha HGB 10.5 g/dl Critically low 12.0-16.0 [facility] Comment on above: Performed By: #### C DWAINE ####[facility] Pwdhvgnlax95[address] [place] [phone]. Ricardo Rocha LYMPHM # 0.46 103/ul Critically low 1.20-3.80 [facility] Comment on above: Performed By: #### C DWAINE ####[facility] Xylnwvtygk4489 [place] [phone]. Ricardo Rocha LYMPHM% 5.0 % Critically low 20.5-60.0 [facility] Comment on above: Performed By: #### C DWAINE ####[facility] Suaubejzoz5[address] [place] [phone]. Ricardo Rocha MCH 25.3 pg Critically low 26.7-34.0 [facility] Comment on above: Performed By: #### C DWAINE ####[facility] Xfbosildid5941 [place] [address]Dr. Ricardo Rocha MCHC 32.2 g/dl Normal 29.9-35.2 [facility] Comment on above: Performed By: #### C DWAINE ####[facility] Xkbmetitec27[address] [place] [phone]. Ricardo Rocha MCV 78.6 fL Critically low 81.0-99.0 [facility] Comment on above: Performed By: #### C DWAINE ####[facility] Emhghwjmge68[address] [place] [address]Dr. Ricardo Rocha METAMYELOCYTE # Normal [facility] Comment on above: Performed By: #### C DWAINE ####[facility] Yevklqqeiw[address] [place], [place] [address]Dr. Ricardo Rocha METAMYELOCYTE % Normal [facility] Comment on above: Performed By: #### C DWAINE ####[facility] Sdlpvoxfix1534 [place] [phone]. Ricardo Rocha MONOM# 0.28 103/ul Critically low 0.30-0.80 [facility] Comment on above: Performed By: #### C DWAINE ####[facility] Xvxnmzumjt8022 [place] [address]Dr. Ricardo Rocha MONOM% 3.0 % Normal 1.7-12.0 [facility] Comment on above: Performed By: #### C DWAINE ####[facility] Vguhnmbfob3964 [place] [phone]. Ricardo Rocha MPV 11.4 fL Normal 9.5-13.5 [facility] Comment on above: Performed By: #### C DWIANE ####[facility] Xxzxcvzpai14[address] [place] [address]Dr. Ricardo Rocha MYELOCYTE # Normal [facility] Comment on above: Performed By: #### C DWAINE ####[facility] Oxxzsivqeh[address] [place], [place] [address]Dr. Ricardo Rocha MYELOCYTE % Normal [facility] Comment on above: Performed By: #### C DWAINE ####[facility] Whqzfyxeug7934 [place], [place] [address]Im. Ricardo Rocha NRBC Normal [facility] Comment on above: Performed By: #### C DWAINE ####[facility] Tzqzvesbav8878 [place], [place] [address]Yb. Ricardo Rocha PLT 154 103/ul Normal 150-450 [facility] Comment on above: Performed By: #### C DWAINE ####[facility] Wocqzqlqjr5210 [place], [place] [address]Ma. Ricardo Rocha RBC 4.15 106/ul Critically low 4.20-5.40 [facility] Comment on above: Performed By: #### C DWAINE ####[facility] Mdpdavbtnl2966 [place] [phone]. Ricardo Rocha RDW 12.8 % Normal 11.0-15.0 [facility] Comment on above: Performed By: #### C DWAINE ####[facility] Gcuvhtcqqi8414 [place] [phone]. Ricardo Rocha SEG # 7.36 103/ul Critically high 1.40-6.50 [facility] Comment on above: Performed By: #### C DWAINE ####[facility] Qmgikevgsr9270 [place] [phone]. Ricardo Rocha SEG % 80.0 % Critically high 43.0-75.0 [facility] Comment on above: Performed By: #### C DWAINE ####[facility] Plycxpkkql2150 [place] [phone]. Ricardo Rocha WBC 9.2 103/ul Normal 4.0-11.0 [facility] Comment on above: Performed By: #### C DWAINE ####[facility] Lnsklvxtqf8[address] [place] [phone]. Ricardo Rocha CT HEAD WO CONon 06-11-2022 CT HEAD WO CON Normal [facility] CULTURE ANAEROBICon 10-22-20 22 CULTURE ANAEROBIC Culture Observations : NO GROWTH OF ANAEROBES AT 72 HOURS. Normal [facility] Comment on above: Performed By: #### A NACX ####[facility] Ztqqzmspog[address] [place], [place] [address]Dr. Ricardo Rocha CULTURE ANAEROBIC Culture Observations : NO GROWTH OF ANAEROBES AT 72 HOURS. Normal [facility] Comment on above: Performed By: #### A NACX ####[facility] Wlfdgacizu[address] [place], [place] [address]Dr. Ricardo Rocha CULTURE BLOODon 06-11-2022 Microscopic examination of blood, culture Culture Observations: Aerobic bottle positive only. Culture Observations: No growth at 5 days in anaerobic bottle Culture Observations: See for Susceptibility testing. Isolate 1 Staphylococcus aureus Growth of Normal [facility] Comment on above: Performed By: #### B LDCX2 ####[facility] Ghzmkkrbrr[address] [place], [place] [address]Dr. Ricardo Rocha CULTURE URINEon 06-11-2022 CULTURE URINE Culture Observations : LIGHT GROWTH OF MIXED GENITAL SHAHLA. NO POTENTIAL PATHOGENS SEEN. Normal [facility] Comment on above: Performed By: #### U RCX ####[facility] Ebwroazrzc05[address] [place], [place] [address]Dr. Ricardo Rocha Covid-19 PCR (CVDTB)on 05-22 SARS-CoV-2 (COVID-19) RNA ADRIEL+probe Ql (Unsp spec) Not detected Normal NOT DETECTED [facility] Comment on above: Result Comment: When [...] for this test is supported by the [place] of Health and Human Service's declaration that [...] longer be used). Performed By: #### C NEGRITO ####[facility] Gssomvikjv[address] [place], [place] [address]Dr. Ricardo Rocha ER URINE PROFILEon 2 Bilirubin Ql (U) Negative Normal NEGATIVE [facility] Comment on above: Performed By: #### SHAYNA ELENA ####[facility] Kkwajizzfk[address] [place], [place] [address]Dr. Ricardo Rocha Clarity (U) CLEAR Normal CLEAR [facility] Comment on above: Performed By: #### SHAYNA ELENA ####[facility] Agbsduqqsy[address] [place], [place] [address]Dr. Ricardo Rocha Color (U) LT. YELLOW Normal YELLOW [facility] Comment on above: Performed By: #### SHAYNA ELENA ####[facility] Maaaqphswb[address] [place], [place] [address]Dr. Ricardo CHAMPAGNEAHD A micrscopic examination will be performed if indicated. Normal [facility] Comment on above: Performed By: #### SHAYNA ELENA ####[facility] Nvcujjcrgj758[address] [place], [place] [address]Dr. Ricardo Rocha Glucose Ql (U) >1000 Abnormal NEGATIVE [facility] Comment on above: Performed By: #### SHAYNA ELENA ####[facility] Imroxydqyz96[address] [place], [place] [address]Dr. Ricardo Rocha Hemoglobin Ql (U) LARGE Abnormal NEGATIVE [facility] Comment on above: Performed By: #### SHAYNA ELENA ####[facility] Zmujrqbjnq[address] [place], [place] [address]Dr. Ricardo Rocha Ketones Ql (U) 15 mg/dl Abnormal NEGATIVE [facility] Comment on above: Performed By: #### SHAYNA ELENA ####[facility] Dqmknsqaby7540[address] [place], [place] [address]Dr. Ricardo Rocha LEUKOCYTES Negative Normal NEGATIVE [facility] Comment on above: Performed By: #### LOLY ELENAICRO ####[facility] Iikmkwwocn03[address] [place] [address]Dr. Ricardo Rocha Nitrite Ql (U) Negative Normal NEGATIVE [facility] Comment on above: Performed By: #### Jennifer HINOJOSA UMICRO ####[facility] Hsguajctds5078 [place] [address]Dr. Ricardo Rocha pH (U) 6.0 [pH] Normal 5-9 [facility] Comment on above: Performed By: #### LOLY ELENAICRO ####[facility] Hrkpxgkizn7[address] [place], [place] [address]Dr. Ricardo Rocha Protein (U) [Mass/Vol] 100 mg/dL Abnormal NEGATIVE/ TRACE [facility] Comment on above: Performed By: #### LOLY ELENAICRO ####[facility] Niimgjqjjk[address] [place], [place] [address]Dr. Ricardo Rocha SPEC GRAVITY 1.020 Normal 1.005-<=1.02 5 [facility] Comment on above: Performed By: #### LOLY ELENAICRO ####[facility] Jnbwsfvtco[address] [place], [place] [address]Dr. Ricardo Rocha UR MICRO IND INDICATED Normal [facility] Comment on above: Performed By: #### LOLY ELENAICRO ####[facility] Bzybfrtutn309[address] [place], [place] [address]Dr. Ricardo Rocha Urobilinogen Qn (U) 0.2 {Madeleine'U}/dL Normal 0.2 - 1. 0 [facility] Comment on above: Performed By: #### Jennifer HINOJOSA UMICRO ####[facility] Pqpvljtzut[address] [place], [place] [address]Dr. Ricardo Rocha GRAM STAINon 06-11-2022 DIPHTHEROIDS Normal [facility] Comment on above: Performed By: #### G STAIN ####[facility] Rsmwpibwqs[address] [place], [place] [address]Dr. Ricardo Rocha EPITHELIALS Normal [facility] Comment on above: Performed By: #### G STAIN ####[facility] Kfzdqzrlax020[address] [place] [address]Dr. Ricardo Rocha FUNGAL ELEMENTS Normal [facility] Comment on above: Performed By: #### G STAIN ####[facility] Hjignpqmep11[address] [place] [address]Dr. Ricardo Rocha GRAM NEG BACILLI Normal [facility] Comment on above: Performed By: #### G STAIN ####[facility] Gddofusxle08[address] [place] [address]Dr. Ricardo Rocha GRAM NEG DIPPLOCOCCI Normal [facility] Comment on above: Performed By: #### G STAIN ####[facility] Raafucyqxu[address] [place], [place] [address]Dr. Ricardo Rocha GRAM POS BACILLI Normal [facility] Comment on above: Performed By: #### G STAIN ####[facility] Gkfbrvwdjn[address] [place], [place] [address]Dr. Ricardo Rocha GRAM POSITIVE COCCI MANY Normal [facility] Comment on above: Performed By: #### G STAIN ####[facility] Izgmbwoxhp62[address] [place], [place] [address]Dr. Ricardo Rocha GRAM STAIN SOURCE Left great toe tissu e after washout-clean Normal [facility] Comment on above: Performed By: #### G STAIN ####[facility] Fywwnsbcoy[address] [place], [place] [address]Dr. Ricardo Rocha GS_DIPTH Normal [facility] Comment on above: Performed By: #### G STAIN ####[facility] Gnhabibzcb96[address] [place] [address]Dr. Ricardo Rocha WBC RARE Normal [facility] Comment on above: Performed By: #### G STAIN ####[facility] Qvizttsufm[address] [place], [place] [address]Dr. Ricardo Rocha DIPHTHEROIDS Normal [facility] Comment on above: Performed By: #### G STAIN ####[facility] Vxgxshtjpa5[address] [place] [address]Dr. Ricardo Rocha EPITHELIALS Normal [facility] Comment on above: Performed By: #### G STAIN ####[facility] Nfogscqojs6066 [place] [phone]. Ricardo Rocha FUNGAL ELEMENTS Normal [facility] Comment on above: Performed By: #### G STAIN ####[facility] Nojwbmmkfz8[address] [place] [phone]. Ricardo Rocha GRAM NEG BACILLI Normal [facility] Comment on above: Performed By: #### G STAIN ####[facility] Freimttuqo17[address] [place] [phone]. Ricardo Rocha GRAM NEG DIPPLOCOCCI Normal [facility] Comment on above: Performed By: #### G STAIN ####[facility] Lvfrrooyew38[address] [place] [address]Dr. Ricardo Rocha GRAM POS BACILLI Normal [facility] Comment on above: Performed By: #### G STAIN ####[facility] Ejpivtblcq9[address] [place] [address]Dr. Ricardo Rocha GRAM POSITIVE COCCI RARE Normal [facility] Comment on above: Performed By: #### G STAIN ####[facility] Zxwedtilqx3180 [place] [address]Dr. Ricardo Rocha GRAM STAIN SOURCE Left great toe Normal [facility] Comment on above: Performed By: #### G STAIN ####[facility] Lhmgngmnei3121 [place] [address]Dr. Ricardo Rocha GS_DIPTH Normal [facility] Comment on above: Performed By: #### G STAIN ####[facility] Vhpbntbxwl1665 [place] [address]Dr. Ricardo Rocha WBC RARE Normal [facility] Comment on above: Performed By: #### G STAIN ####[facility] Kuramjtzru8424 [place] [address]Dr. Ricardo Rocha DIPHTHEROIDS Normal [facility] Comment on above: Performed By: #### G STAIN ####[facility] Naxhumvwcr8507 [place] [address]Dr. Ricardo Rocha EPITHELIALS Normal [facility] Comment on above: Performed By: #### G STAIN ####[facility] Paymyagiig6264 [place] [address]Dr. Ricardo Rocha FUNGAL ELEMENTS Normal [facility] Comment on above: Performed By: #### G STAIN ####[facility] Rpytcdgsys[address] [place], [place] [address]Dr. Ricardo Rocha GRAM NEG BACILLI Normal [facility] Comment on above: Performed By: #### G STAIN ####[facility] Dmhrnafadn[address] [place], [place] [address]Dr. Ricardo Rocha GRAM NEG DIPPLOCOCCI Normal [facility] Comment on above: Performed By: #### G STAIN ####[facility] Qirzvllpcq[address] [place], [place] [address]Dr. Ricardo Rocha GRAM POS BACILLI Normal [facility] Comment on above: Performed By: #### G STAIN ####[facility] Sgomvtqsvx[address] [place], [place] [address]Dr. Ricardo Rocha GRAM POSITIVE COCCI FEW Normal [facility] Comment on above: Performed By: #### G STAIN ####[facility] Gjszpbydfs[address] [place], [place] [address]Dr. Ricardo Rocha GRAM STAIN SOURCE Left great toe abscess Normal [facility] Comment on above: Performed By: #### G STAIN ####[facility] Ohklqkhfiy8[address] [place], [place] [address]Dr. Ricardo Rocha GS_DIPTH Normal [facility] Comment on above: Performed By: #### G STAIN ####[facility] Vnzwecyoqa034[address] [place], [place] [address]Dr. Ricardo Rocha WBC FEW Normal [facility] Comment on above: Performed By: #### G STAIN ####[facility] Tmlbrgiutv[address] [place], [place] [address]Dr. Ricardo Rocha LACTATE/LACTIC ACIDon 2021 Lactate [Moles/Vol] 2.2 mmol/L Critically high 0.4-1.9 [facility] Comment on above: Performed By: #### L ACT ####[facility] Fwsfyzmmcz6[address] [place], [place] [address]Dr. Ricardo Rocha POINT OF CARE GLUCOSEon 10-2 2-2022 Glucose [Mass/Vol] 133 mg/dL Critically high -106 [facility] Comment on above: Performed By: #### P OCGLUC ####[facility] Uiziwsvwbq7167 [place] [address]Dr. Ricardo Rocha Glucose [Mass/Vol] 215 mg/dL Critically high -106 [facility] Comment on above: Performed By: #### P OCGLUC ####[facility] Nmhfwqiebp1406 [place] [address]Dr. Ricardo Rocha Glucose [Mass/Vol] 207 mg/dL Critically high -106 [facility] Comment on above: Performed By: #### P OCGLUC ####[facility] Xwioonmoiy6253 [place] [address]Dr. Ricardo Rocha Glucose [Mass/Vol] 314 mg/dL Critically high -106 [facility] Comment on above: Performed By: #### P OCGLUC ####[facility] Ejxdydngye[address] [place], [place] [address]Dr. Ricardo Rocha Glucose [Mass/Vol] 496 mg/dL Critically high [address] [place] [address] Comment on above: Performed By: #### P OCGLUC ####[facility] Lwsfrruebp[address] [place], [place] [address]Dr. Ricardo Rocha Glucose [Mass/Vol] 561 mg/dL Critically high -106 [facility] Comment on above: Result Comment: Prev iously Confirmed Performed By: #### P OCGLUC ####[facility] Jofobfqdhb429[address] [place], [place] [address]Dr. Ricardo Aj PROF 14(COMP METB)on 022 Albumin [Mass/Vol] 2.4 g/dL Critically low 3.4-5.0 [facility] Comment on above: Performed By: #### C MP ####[facility] Jqvconzscp7014 [place] [address]Dr. Nanomarcial Aj Albumin/Globulin [Mass ratio] 0.4 {ratio} [facility] Comment on above: Performed By: #### C MP ####[facility] Hlbecxcwtw9953 [place] [address]Dr. Ricardo Rocha ALP [Catalytic activity/Vol] 82 U/L Normal 46-116 [facility] Comment on above: Performed By: #### C MP ####[facility] Ntsxjkdpaq0287 [place] [address]Dr. Ricardo Rocha ALT [Catalytic activity/Vol] 12 U/L Critically low 14-59 [facility] Comment on above: Performed By: #### C MP ####[facility] Pcpeeseauf[address] [place], [place] [address]Dr. Ricardo Rocha Anion gap [Moles/Vol] 15.1 mmol/L Normal [facility] Comment on above: Performed By: #### C MP ####[facility] Dplvxmslqf3235[address] [place], [place] [address]Dr. Ricardo Rocha AST [Catalytic activity/Vol] 14 U/L Critically low 15-37 [facility] Comment on above: Performed By: #### C MP ####[facility] Wyjzlzirdp[address] [place], [place] [address]Dr. Ricardo Aj Bilirubin [Mass/Vol] 0.4 mg/dL Normal 0.2-1.0 [facility] Comment on above: Performed By: #### C MP ####[facility] Fhgptfrlyz56[address] [place], [place] [address]Dr. Ricardo Aj Calcium [Mass/Vol] 8.8 mg/dL Normal 8.5-10.1 [facility] Comment on above: Performed By: #### C MP ####[facility] Hwpbnlpszf11[address] [place], [place] [address]Dr. Ricardo Aj Chloride [Moles/Vol] 105 mmol/L Normal 98-107 [facility] Comment on above: Performed By: #### C MP ####[facility] Xfrirhrnqq450[address] [place], [place] [address]Dr. Nanomarcial Aj CO2 [Moles/Vol] 21.2 mmol/L Normal 21.0-32.0 [facility] Comment on above: Performed By: #### C MP ####[facility] Futmhksxck[address] [place], [place] [address]DrIrina Rocha Creatinine [Mass/Vol] 2.03 mg/dL Critically high 0.55-1.02 [facility] Comment on above: Performed By: #### C MP ####[facility] [address]mvwq[address] [place] [address]Dr. Nanomarcial Aj EGFR-AF [place] 30 mL/min/1.73m2 Critically low >=60 [facility] Comment on above: Performed By: #### C MP ####[facility] Fdbtyxzwcz[address] [place] [address]Dr. Ricardo Rocha EGFR-NON AF [place] 25 mL/min/1.73m2 Critically low >=60 [facility] Comment on above: Performed By: #### C MP ####[facility] Snqljizkbm[address] [place], [place] [address]Dr. Ricardo Rocha Globulin (S) [Mass/Vol] 5.7 g/dL Normal [facility] Comment on above: Performed By: #### C MP ####[facility] Tladwynksc[address] [place] [address]Dr. Ricardo Rocha Glucose [Mass/Vol] 309 mg/dL Critically high 74-106 [facility] Comment on above: Performed By: #### C MP ####[facility] Jccrquxlsa6652 [place] [address]DrIrina Rocha Potassium [Moles/Vol] 3.3 mmol/L Critically low 3.5-5.1 [facility] Comment on above: Performed By: #### C MP ####[facility] Xbsqvognzz14[address] [place] [address]Dr. Ricardo Rocha Protein [Mass/Vol] 8.1 g/dL Normal 6.4-8.[address] [facility] Comment on above: Performed By: #### C MP ####[facility] [address]vqhzwyji[address] [place], [place] [address]Dr. Ricardo Rocha Sodium [Moles/Vol] 138 mmol/L Normal 136-145 [facility] Comment on above: Performed By: #### C MP ####[facility] Gvynhlgnqr13[address] [place], [place] [address]Dr. Ricardo Rocha Urea nitrogen [Mass/Vol] 37.0 mg/dL Critically high 7.0-18.0 [facility] Comment on above: Performed By: #### C MP ####[facility] Miauydeurr[address] [place] [address]Dr. Ricardo Rocha Urea nitrogen/Creatinine [Mass ratio] 18.2 mg/mg Normal [facility] Comment on above: Performed By: #### C MP ####[facility] Xmtlqoofbc4[address] [place] [address]Dr. Ricardo Rocha SED RATE WESTERGRENon 2021 SED RATE >130 Critically high <=30 [facility] Comment on above: Performed By: #### S EDR ####[facility] Wyaaoktwsa[address] [place], [place] [address]Dr. Ricardo Rocha URINE MICROSCOPIC ONLYon AMORPHOUS CRYSTALS MODERATE Normal [facility] Comment on above: Performed By: #### Jennifer HINOJOSA UMICRO ####[facility] Rxynaxjkmn56[address] [place] [address]Dr. Nanomarcial Aj BACTERIA MODERATE Abnormal NONE SEEN [facility] Comment on above: Performed By: #### LOLY ELENAICRO ####[facility] Lgerxswdje[address] [place], [place] [address]Dr. Nanomarcial Aj Bacteria identified Cx Nom (U) INDICATED Normal [facility] Comment on above: Performed By: #### Jennifer HINOJOSA UMICRO ####[facility] Uvdadnbxzz74[address] [place] [address]Dr. Ricardo Rocha CAST NONE SEEN Normal NONE SEEN [facility] Comment on above: Performed By: #### Jennifer HINOJOSA UMICRO ####[facility] Taudahqjjt[address] [place] [address]Dr. Ricardo Rocha Crystals LM Nom (Urine sed) SEEN Abnormal NONE SEEN [facility] Comment on above: Performed By: #### Jennifer HINOJOSA UMICRO ####[facility] Xqfvhifnyy6074 [place] [address]Dr. Ricardo Rocha Epithelial cells LM Ql (Urine sed) NONE SEEN Normal NONE SEEN /RARE [facility] Comment on above: Performed By: #### Jennifer HINOJOSA UMICRO ####[facility] Amhfzpfnva[address] [place] [address]Dr. Ricardo Rocha MUCOUS NONE SEEN Normal NONE SEEN [facility] Comment on above: Performed By: #### JOSLYN ELENARO ####[facility] Dahoxfcmwr88[address] [place] [id number]. Ricardo Rocha RBC 2-5 Abnormal 0-2 [facility] Comment on above: Performed By: #### E JOSLYN HINOJOSARO ####[facility] Wsgasgskdb4409 [place] [phone]. Ricardo Rocha WBC 5-10 Abnormal NONE SEEN [facility] Comment on above: Performed By: #### JOSLYN ELENARO ####[facility] Fvkvhrrqak29[address] [place] [address]Dr. Ricardo Rocha XR CHEST 1 Von 06-11-2022 XR CHEST 1 V Normal [facility] XR FOOT LT MIN 3 VIEWSon XR FOOT LT MIN 3 VIEWS Normal [facility] XR FOOT LT MIN 3 VIEWS Normal [facility] ACETONE SERUMon 06-10-2022 ACETONE Negative Normal NEGATIVE [facility] Comment on above: Performed By: #### A CETON ####[facility] Ynhssqmoog40[address] [place], [place] [address]Dr. Ricardo Rocha AMMONIAon 06-10-2022 Ammonia (P) [Mass/Vol] ug/dL Critically low 11-32 [facility] Comment on above: Performed By: #### A MM ####[facility] Nogxnswell[address] [place] [address]Dr. Ricardo Rocha BLOOD CULTURE ID PANELon A. baumannii Not detected Normal NOT DETECTED [facility] Comment on above: Performed By: #### B CID2 ####[facility] Fmpjessool3214 [place] [address]Dr. Ricardo Rocha Bacteriodes fragilis Not detected Normal NOT DETECTED [facility] Comment on above: Performed By: #### B CID2 ####[facility] Hmkadljaqk4183 [place] [phone]. Yimarcial Rocha BCID CONTROLS PASSED Normal [facility] Comment on above: Performed By: #### B CID2 ####[facility] Mupmyudmjk6835 [place] [phone]. Yimarcial Rocha BCIDBTHD BLOOD CULTURE BOTTLE INFORMATION [facility] Comment on above: Performed By: #### B CID2 ####[facility] Foxkdrgrbw0054 [place] [phone]. Yimarcial Rocha BCIDHD1 ANTIMICROBIAL RESISTANCE GENES [facility] Comment on above: Performed By: #### B CID2 ####[facility] Bdwqsptdex6119 [place] [address]Dr. Yimarcial Rocha BCIDHD2 SEE BELOW [facility] Comment on above: Result Comment: Note : Antimicrobial resitance can occur via multiple mechanisms. A Not Detected result for the [employer] antomicrobial resistance gene assays does not indicate antimicrobial susceptibility. Subculturing is required for species identification and susceptibility testing of isolates. Performed By: #### B CID2 ####[facility] Ztvtfoqsth0884 [place] [phone]. Yimarcial Rocha BCIDHD3 Positive [facility] Comment on above: Performed By: #### B CID2 ####[facility] Iukgxvpmie[address] [place] [phone]. Yimarcial Rocha BCIDHD4 Negative [facility] Comment on above: Performed By: #### B CID2 ####[facility] Hylzwacwkt5167 [place] [phone]. Yimarcial Rocha BCIDHD5 YEAST Normal [facility] Comment on above: Performed By: #### B CID2 ####[facility] Cknvrjoemg6389 [place] [address]Dr. Yilan Rocha Bottle Set: Set 1 [facility] Comment on above: Performed By: #### B CID2 ####[facility] Umoylrmxho2290 [place] [address]Dr. Yilan Rocha Bottle: Aerobic Normal [facility] Comment on above: Performed By: #### B CID2 ####[facility] Woghqxbvnv3696 [place] [phone]. Yilan Rocha C. neoformans/gattii Not detected Normal NOT DETECTED [facility] Comment on above: Performed By: #### B CID2 ####[facility] Eqbjjaumnt0636 [place] [phone]. Yilan Rocha Lauren albicans Not detected Normal NOT DETECTED [facility] Comment on above: Performed By: #### B CID2 ####[facility] Lhiwtcfyjk7005 [place] [address]Dr. Yilan Rocha Lauren auris Not detected Normal NOT DETECTED [facility] Comment on above: Performed By: #### B CID2 ####[facility] Cxvoacabzx0[address] [place], [place] [address]Dr. Yilan Rocha Lauren glabrata Not detected Normal NOT DETECTED [facility] Comment on above: Performed By: #### B CID2 ####[facility] Gmknsnqxbf048[address] [place], [place] [address]Dr. Yilan Rocha Lauren Krusei Not detected Normal NOT DETECTED [facility] Comment on above: Performed By: #### B CID2 ####[facility] Pxcldzlyxu317[address] [place], [place] [address]Dr. Yilan Rocha Lauren Parapsilosis Not detected Normal NOT DETECTED [facility] Comment on above: Performed By: #### B CID2 ####[facility] Dvyrlrvncp0402 [place] [address]Dr. Yilan Rocha Lauren Tropicalis Not detected Normal NOT DETECTED [facility] Comment on above: Performed By: #### B CID2 ####[facility] Kftgatjzuh6157 [place] [phone]. Yimarcial Rocha CTX-M Resistant Gene Not Applicable Normal NOT DETECTE D [facility] Comment on above: Performed By: #### B CID2 ####[facility] Vzhjkgcofj7997 [place] [address]Dr. Yilan Rocha E. Cloacae complex Not detected Normal NOT DETECTED [facility] Comment on above: Performed By: #### B CID2 ####[facility] Haunpumouh[address] [place], [place] [address]Dr. Ricardo Rocha E. faecalis Not detected Normal NOT DETECTED [facility] Comment on above: Performed By: #### B CID2 ####[facility] Zrifuwokvc16[address] [place], [place] [address]Dr. Ricardo Rocha E. faecium Not detected Normal NOT DETECTED [facility] Comment on above: Performed By: #### B CID2 ####[facility] Xivywjdtab5023[address] [place], [place] [address]Dr. Ricardo Rocha Enterobacteriaceae Not detected Normal NOT DETECTED [facility] Comment on above: Performed By: #### B CID2 ####[facility] Jnvvraloeo32[address] [place], [place] [address]Dr. Ricardo Rocha Escherichia coli Not detected Normal NOT DETECTED [facility] Comment on above: Performed By: #### B CID2 ####[facility] Itkzuoyjot224[address] [place], [place] [address]Dr. Ricardo Rocha H. influenzae Not detected Normal NOT DETECTED [facility] Comment on above: Performed By: #### B CID2 ####[facility] Uwevuvtiyk[address] [place], [place] [address]Dr. Ricardo Rocha IMP Resistant Gene Not Applicable Normal NOT DETECTED [facility] Comment on above: Performed By: #### B CID2 ####[facility] Zpivewewni17[address] [place], [place] [address]Dr. Ricardo Rocha K. oxytoca Not detected Normal NOT DETECTED [facility] Comment on above: Performed By: #### B CID2 ####[facility] Ssmbmhofbv252[address] [place], [place] [address]Dr. Ricardo Rocha K. pneumoniae Not detected Normal NOT DETECTED [facility] Comment on above: Performed By: #### B CID2 ####[facility] Jwmhouxhog9[address] [place], [place] [address]Dr. Ricardo Rocha Klebsiella aerogenes Not detected Normal NOT DETECTED [facility] Comment on above: Performed By: #### B CID2 ####[facility] Nrnsysaqnl[address] [place], [place] [address]Dr. Ricardo Rocha KPC Resistant Gene Not Applicable Normal NOT DETECTED [facility] Comment on above: Performed By: #### B CID2 ####[facility] Bcvavgutdn4920 [place] [address]Dr. Ricardo Rocha List. monocytogenes Not detected Normal NOT DETECTED [facility] Comment on above: Performed By: #### B CID2 ####[facility] Levhqdeojr3863 [place] [address]Dr. Ricardo Rocha Mcr-1 Resistant Gene Not Applicable Normal NOT DETECTE D [facility] Comment on above: Performed By: #### B CID2 ####[facility] Burgxkpsuo45[address] [place], [place] [address]Dr. Ricardo Rocha mecA/C Not Applicable Normal NOT DETECTED [facility] Comment on above: Performed By: #### B CID2 ####[facility] Nolydibhbe[address] [place], [place] [address]Dr. Ricardo Rocha mecA/C MREJ Detected Abnormal NOT DETECTED [facility] Comment on above: Performed By: #### B CID2 ####[facility] Jmvaycztpn0980[address] [place], [place] [address]Dr. Ricardo Rocha N. meningitidis Not detected Normal NOT DETECTED [facility] Comment on above: Performed By: #### B CID2 ####[facility] Ljcjtfsgxj789[address] [place], [place] [address]Dr. Ricardo Rocha NDM Resistant Gene Not Applicable Normal NOT DETECTED [facility] Comment on above: Performed By: #### B CID2 ####[facility] Anoanvtxrm975[address] [place], [place] [address]Dr. Ricardo Rocha Oxa-48-like Not Applicable Normal NOT DETECTED [facility] Comment on above: Performed By: #### B CID2 ####[facility] Injgqhzxno87[address] [place], [place] [address]Dr. Ricardo Rocha Proteus Not detected Normal NOT DETECTED [facility] Comment on above: Performed By: #### B CID2 ####[facility] Tfxqoqkkme4[address] [place], [place] [address]Dr. Ricardo Rocha Pseud. aeruginosa Not detected Normal NOT DETECTED [facility] Comment on above: Performed By: #### B CID2 ####[facility] Xkulfvujoz1536 [place] [address]Dr. Ricardo Rocha S. maltophilia Not detected Normal NOT DETECTED [facility] Comment on above: Performed By: #### B CID2 ####[facility] Ksrcwwtojb95[address] [place], [place] [address]Dr. Ricardo Rocha Salmonella Not detected Normal NOT DETECTED [facility] Comment on above: Performed By: #### B CID2 ####[facility] Ostbthmcxw[address] [place], [place] [address]Dr. Ricardo Rocha Seratia marcescens Not detected Normal NOT DETECTED [facility] Comment on above: Performed By: #### B CID2 ####[facility] Ufwnvdfdhc[address] [place], [place] [address]Dr. Ricardo Rocha Site: LEFT AC IV START Normal [facility] Comment on above: Performed By: #### B CID2 ####[facility] Dcgfahhfea7[address] [place], [place] [address]Dr. Ricardo Rcoha Staph. aureus Detected Critically abnormal NOT DETECTED [facility] Comment on above: Performed By: #### B CID2 ####[facility] Jpnrrqhfqg0734[address] [place], [place] [address]Dr. Ricardo Rocha Staph. epidermidis Not detected Normal NOT DETECTED [facility] Comment on above: Performed By: #### B CID2 ####[facility] Trcldzhtym940[address] [place], [place] [address]Dr. Ricardo Rocha Staph. lugdunensis Not detected Normal NOT DETECTED [facility] Comment on above: Performed By: #### B CID2 ####[facility] Hestqdtaef08[address] [place], [place] [address]Dr. Ricardo Rocha Staphylococcus Detected Critically abnormal NOT DETECTED [facility] Comment on above: Performed By: #### B CID2 ####[facility] Iuseanhqsq5380[address] [place], [place] [address]Dr. Ricardo Rocha Strep. agalactiae Not detected Normal NOT DETECTED [facility] Comment on above: Performed By: #### B CID2 ####[facility] Zbzhkukejj0917[address] [place], [place] [address]Dr. Nanomarcial Rocha Strep. pneumoniae Not detected Normal NOT DETECTED [facility] Comment on above: Performed By: #### B CID2 ####[facility] Aibmlexnbg07[address] [place], [place] [address]Dr. Nanomarcial Rocha Strep. pyogenes Not detected Normal NOT DETECTED [facility] Comment on above: Performed By: #### B CID2 ####[facility] Dwwstzezpp7[address] [place], [place] [address]Dr. Ricardo Rocha Streptococcus Not detected Normal NOT DETECTED [facility] Comment on above: Performed By: #### B CID2 ####[facility] Hyjgdfifyb[address] [place], [place] [address]Dr. Ricardo Rocha Layne/B Resist. Gene Not Applicable Normal NOT DETECTED [facility] Comment on above: Performed By: #### B CID2 ####[facility] Heiaywqydq066[address] [place], [place] [address]Dr. Ricardo Rocha VIM Resistant Gene Not Applicable Normal NOT DETECTED [facility] Comment on above: Performed By: #### B CID2 ####[facility] Zzopwrvmec448[address] [place], [place] [address]Dr. Ricardo Rocha BLOOD GASES BTYon 06-10-2022 02 MODE ROOM AIR Normal [facility] Comment on above: Performed By: #### A BG ####[facility] Bvopspxjyz5439[address] [place], [place] [address]Dr. Ricardo Rocha ALLENS TEST Positive Normal [facility] Comment on above: Performed By: #### A BG ####[facility] Xvgnndfvpi0723[address] [place], [place] [address]Dr. Ricardo Rocha Base excess Calc (Bld) [Moles/Vol] -4.5000 mmol/L Critically low -2.0-2.0 [facility] Comment on above: Performed By: #### A BG ####[facility] Xurrypyutj685[address] [place], [place] [address]Dr. Ricardo Rocha BIPAP PRESSURE Normal [facility] Comment on above: Performed By: #### A BG ####[facility] Isfsqvzkjs4378 [place] [address]Dr. Ricardo Rocha CPAP Normal [facility] Comment on above: Performed By: #### A BG ####[facility] Savhsgtqze8494 [place] [address]Dr. Ricardo Rocha FIO2 Normal [facility] Comment on above: Performed By: #### A BG ####[facility] Pstwidkobe1332 [place] [address]Dr. Ricardo Rocha HCO3 (Bld) [Moles/Vol] 21.4 mmol/L Critically low 22.0-26.0 [facility] Comment on above: Performed By: #### A BG ####[facility] Ggvpxhqsoc132[address] [place], [place] [address]Dr. Ricardo Rocha LPM Normal [facility] Comment on above: Performed By: #### A BG ####[facility] Fjbjqmxkbx532[address] [place], [place] [address]Dr. Ricardo Rocha MINUTE VOLUME Normal [facility] Comment on above: Performed By: #### A BG ####[facility] Efdnqpzohl454[address] [place], [place] [address]Dr. Ricardo Rcoha Oxygen (Bld) [Partial pressure] 66.4 mm[Hg] Critically low 80.0-100.0 [facility] Comment on above: Performed By: #### A BG ####[facility] Xupcrhrpzz2380[address] [place], [place] [address]Dr. Ricardo Rocha Oxygen saturation in Blood 94.6 % Critically low 95.0-100.0 [facility] Comment on above: Performed By: #### A BG ####[facility] Keifhqvjab956[address] [place], [place] [address]Dr. Ricardo Rocha PCO2 29.4 mmHg Critically low 35.0-45.0 [facility] Comment on above: Performed By: #### A BG ####[facility] Yfrxoccrlq512[address] [place], [place] [address]Dr. Ricardo Rocha PEEP Normal [facility] Comment on above: Performed By: #### A BG ####[facility] Awnwaecitr8381 [place] [address]Dr. Ricardo Rocha pH (Bld) 7.436 [pH] Normal 7.350-7.450 [facility] Comment on above: Performed By: #### A BG ####[facility] Sfugrpjrpk6818 [place] [address]Dr. Ricardo Rocha PIP Normal [facility] Comment on above: Performed By: #### A BG ####[facility] Lwrxzenzlf5661 [place] [address]Dr. Ricardo Rocha PS [facility] Comment on above: Performed By: #### A BG ####[facility] Hhhtrabuhv9[address] [place], [place] [address]Dr. Ricardo Rocha PUNCTURE SITE LR Normal [facility] Comment on above: Performed By: #### A BG ####[facility] Ermeprcezd[address] [place], [place] [address]Dr. Ricardo Rocha RATE [place] [facility] Comment on above: Performed By: #### A BG ####[facility] Snukgycapz73[address] [place], [place] [address]Dr. Ricardo Rocha VENT MODE [facility] Comment on above: Performed By: #### A BG ####[facility] Ndkggroklr27[address] [place], [place] [address]Dr. Ricardo Rocha [place] [facility] Comment on above: Performed By: #### A BG ####[facility] Heoubovqnf517[address] [place], [place] [address]Dr. Ricardo Rocha CBC W MANUAL DIFFon 06-10-20 22 ATYPICAL LYMPH # Normal [facility] Comment on above: Performed By: #### C BCMAN ####[facility] Wqpcrhvflo5499 [place] [address]Dr. Ricardo Rocha ATYPICAL LYMPH % Normal [facility] Comment on above: Performed By: #### C BCMAN ####[facility] Cxlesjdszk4711 [place] [address]Dr. Ricardo Rocha BAND # 1.3 103/ul Critically high 0.0-0.3 [facility] Comment on above: Performed By: #### C BCMAN ####[facility] Mnosuyfuni1177 [place] [phone]. Ricardo Rocha BAND % 12 % Critically high 0-5 [facility] Comment on above: Performed By: #### C BCMAN ####[facility] Vvcnvfwvcb4580 [place], [place] [address]Bd. Yimarcial Rocha BASOM # 0.00 103/ul Normal 0.00-0.10 [facility] Comment on above: Performed By: #### C BCMAN ####[facility] Asaiyjvcfc8404 [place] [phone]. Yimarcial Rocha BASOM % 0.0 % Critically low 0.2-2.0 [facility] Comment on above: Performed By: #### C BCMAN ####[facility] Mgfndkguxr0536 [place] [address]Dr. Yimarcial Rocha BLAST # Normal [facility] Comment on above: Performed By: #### C BCRED ####[facility] Sccdpepsgu8412 [place] [address]Dr. Ricardo Rocha BLAST % Normal [facility] Comment on above: Performed By: #### C BCMAN ####[facility] Lpsyouhvba2312 [place] [address]Dr. Ricardo Rocha CORRECTED WBC Normal 4.0-11.0 [facility] Comment on above: Performed By: #### C BCMAN ####[facility] Oqfziqyahp4818 [place] [address]Dr. Yimarcial Rocha EOS # 0.00 103/ul Normal 0.00-0.70 [facility] Comment on above: Performed By: #### C BCMAN ####[facility] [address]jxzc[address] [place], [place] [address]Dr. Yimarcial Rocha EOS% 0.0 % Critically low 0.9-7.0 [facility] Comment on above: Performed By: #### C BCMAN ####[facility] Wzujgypzak9278 [place] [phone]. Yilan Rocha HCT 35.5 % Critically low 36.0-48.0 [facility] Comment on above: Performed By: #### C DWAINE ####[facility] Uuphobjrrz5260 [place], [place] [address]Cu. Ricardo Rocha HGB 11.4 g/dl Critically low 12.0-16.0 [facility] Comment on above: Performed By: #### C DWAINE ####[facility] Pfahgbuzih9399 [place] [phone]. Ricardo Rocha HYPERSEG NEUT 3+ Normal [facility] Comment on above: Performed By: #### C DWAINE ####[facility] Zfoutvjwhq9045 [place], [place] [address]Ga. Ricardo Rocha LYMPHM # 0.21 103/ul Critically low 1.20-3.80 [facility] Comment on above: Performed By: #### C DWAINE ####[facility] Delmkjfatg3943 [place] [phone]. Ricardo Rocha LYMPHM% 2.0 % Critically low 20.5-60.0 [facility] Comment on above: Performed By: #### C DWAINE ####[facility] Tjexfwbghe1312 [place] [phone]. Ricardo Rocha MCH 25.3 pg Critically low 26.7-34.0 [facility] Comment on above: Performed By: #### C DWAINE ####[facility] Kxpcnwjtmm7346 [place] [phone]. Ricardo Rocha MCHC 32.1 g/dl Normal 29.9-35.2 [facility] Comment on above: Performed By: #### C DWAINE ####[facility] Ykzkzoytby7773 [place], [place] [address]Ns. Ricardo Rocha MCV 78.9 fL Critically low 81.0-99.0 [facility] Comment on above: Performed By: #### C DWAINE ####[facility] Rzgpnnzswc3246 [place] [phone]. Ricardo Rocha METAMYELOCYTE # Normal [facility] Comment on above: Performed By: #### C DWAINE ####[facility] Uvgjkupdyw4064 [place] [phone]. Ricardo Rocha METAMYELOCYTE % Normal [facility] Comment on above: Performed By: #### C DWAINE ####[facility] Thaihgjgdy0901 [place] [phone]. Ricardo Rocha MONOM# 0.32 103/ul Normal 0.30-0.80 [facility] Comment on above: Performed By: #### C DWAINE ####[facility] Xxvqczqlkh9330 [place] [phone]. Ricardo Rocha MONOM% 3.0 % Normal 1.7-12.0 [facility] Comment on above: Performed By: #### C DWANIE ####[facility] Ycofkjkdlw1713 [place] [address]Dr. Ricardo Rocha MPV 10.9 fL Normal 9.5-13.5 [facility] Comment on above: Performed By: #### C DWAINE ####[facility] [address]ijlnecrfj[address] [place], [place] [address]Dr. Ricardo Rocha MYELOCYTE # Normal [facility] Comment on above: Performed By: #### C DWAINE ####[facility] Gacspzucyw[address] [place], [place] [address]Dr. Ricardo Rocha MYELOCYTE % Normal [facility] Comment on above: Performed By: #### C DWAINE ####[facility] Vuhfhjqlxg[address] [place], [place] [address]Dr. Ricardo Rocha NRBC Normal [facility] Comment on above: Performed By: #### C DWAINE ####[facility] Evqcifjrbp0071 [place] [phone]. Ricardo Rocha PLT 180 103/ul Normal 150-450 [facility] Comment on above: Performed By: #### C DWAINE ####[facility] Ptcmftcgzm[address] [place], [place] [address]Dr. Ricardo Rocha RBC 4.50 106/ul Normal 4.20-5.40 [facility] Comment on above: Performed By: #### C DWAINE ####[facility] Gepjzohlfm6965 [place] [address]Dr. Ricardo Rocha RDW 12.8 % Normal 11.0-15.0 [facility] Comment on above: Performed By: #### C BCMAN ####[facility] Kzxyqdqbug7999 [place] [phone]. Ricardo Rocha SEG # 8.71 103/ul Critically high 1.40-6.50 [facility] Comment on above: Performed By: #### C BCMAN ####[facility] [address] [place] [id number]. Ricardo Rocha SEG % 83.0 % Critically high 43.0-75.0 [facility] Comment on above: Performed By: #### C BCMAN ####[facility] [address] [place], [place] [address]Dr. Ricardo Rocha TOXIC GRANULATION 2+ Normal [facility] Comment on above: Performed By: #### C BCMAN ####[facility] [address] [place] [address]Dr. Ricardo Rocha WBC 10.5 103/ul Normal 4.0-11.0 [facility] Comment on above: Performed By: #### C BCMAN ####[facility] [address] [place], [place] [address]Dr. Ricardo Rocha CULTURE BLOODon 06-10-2022 Microscopic examination of blood, culture Culture Observations: Positive blood culture. Pediatric bottle. Culture Observations: Please refer to for susceptibility testing. Isolate 1 Staphylococcus aureus Growth of Normal [facility] Comment on above: Performed By: #### B LDCX2 ####[facility] [address] [place], [place] [address]Dr. Ricardo Rocha LACTATE/LACTIC ACIDon 2021 Lactate [Moles/Vol] 1.9 mmol/L Normal 0.4-1.9 [facility] Comment on above: Performed By: #### L ACT ####[facility] [address] [place], [place] [address]Dr. Ricardo Rocha LIPASEon 06-10-2022 Lipase [Catalytic activity/Vol] 164.0 U/L Normal 73.0-393.0 [facility] Comment on above: Performed By: #### H STROPN, LIPA, CMP, TSH ####[facility] [address] [place] [address]Dr. Ricardo Rocha POINT OF CARE GLUCOSEon 05-22 Glucose [Mass/Vol] 583 mg/dL Critically high 74-106 [facility] Comment on above: Result Comment: Resu lt Not Confirmed Performed By: #### P OCGLUC ####[facility] [address] [place] [address]Dr. Ricardo Rocha PROF 14(COMP METB)on 022 Albumin [Mass/Vol] 3.0 g/dL Critically low 3.4-5.0 [facility] Comment on above: Performed By: #### H STROPN, LIPA, CMP, TSH ####[facility] [address] [place] [address]Dr. Ricardo Rocha Albumin/Globulin [Mass ratio] 0.5 {ratio} Normal [facility] Comment on above: Performed By: #### H STROPN, LIPA, CMP, TSH ####[facility] [address] [place] [address]Dr. Ricardo Rocha ALP [Catalytic activity/Vol] 116 U/L Normal 46-116 [facility] Comment on above: Performed By: #### H STROPN, LIPA, CMP, TSH ####[facility] [address] [place] [address]Dr. Ricardo Rocha ALT [Catalytic activity/Vol] 15 U/L Normal 14-59 [facility] Comment on above: Performed By: #### H STROPN, LIPA, CMP, TSH ####[facility] [address] [place] [address]Dr. Ricardo Rocha Anion gap [Moles/Vol] 15.7 mmol/L Normal [facility] Comment on above: Performed By: #### H STROPN, LIPA, CMP, TSH ####[facility] [address] [place] [address]Dr. Ricardo Rocha AST [Catalytic activity/Vol] 16 U/L Normal 15-37 [facility] Comment on above: Performed By: #### H STROPN, LIPA, CMP, TSH ####[facility] [address] [place] [address]Dr. Ricardo Rocha Bilirubin [Mass/Vol] 0.5 mg/dL Normal 0.2-1.0 [facility] Comment on above: Performed By: #### H STROPN, LIPA, CMP, TSH ####[facility] [address] [place] [address]Dr. Ricardo Rocha Calcium [Mass/Vol] 9.4 mg/dL Normal 8.5-10.1 [facility] Comment on above: Performed By: #### H STROPN, LIPA, CMP, TSH ####[facility] [address] [place] [address]Dr. Ricardo Rocha Chloride [Moles/Vol] 95 mmol/L Critically low 98-107 [facility] Comment on above: Performed By: #### H STROPN, LIPA, CMP, TSH ####[facility] [address] [place] [address]Dr. Ricardo Rocha CO2 [Moles/Vol] 22.1 mmol/L Normal 21.0-32.0 [facility] Comment on above: Performed By: #### H STROPN, LIPA, CMP, TSH ####[facility] [address] [place] [address]Dr. Ricardo Rocha Creatinine [Mass/Vol] 2.23 mg/dL Critically high 0.55-1.02 [facility] Comment on above: Performed By: #### H STROPN, LIPA, CMP, TSH ####[facility] [address] [place] [address]Dr. Ricardo Rocha EGFR-AF [place]ER 27 mL/min/1.73m2 Critically low >=60 [facility] Comment on above: Performed By: #### H STROPN, LIPA, CMP, TSH ####[facility] [address] [place] [address]Dr. Ricardo Rocha EGFR-NON AF [place] 22 mL/min/1.73m2 Critically low >=60 [facility] Comment on above: Performed By: #### H STROPN, LIPA, CMP, TSH ####[facility] [address] [place] [address]Dr. Ricardo Rocha Globulin (S) [Mass/Vol] 6.5 g/dL Normal [facility] Comment on above: Performed By: #### H STROPN, LIPA, CMP, TSH ####[facility] [address] [place] [address]Dr. Ricardo Rocha Glucose [Mass/Vol] 593 mg/dL Critically high 74-106 [facility] Comment on above: Performed By: #### H STROPN, LIPA, CMP, TSH ####[facility] [address] [place] [address]Dr. Ricardo Rocha Potassium [Moles/Vol] 3.8 mmol/L Normal 3.5-5.1 [facility] Comment on above: Performed By: #### H STROPN, LIPA, CMP, TSH ####[facility] [address] [place] [address]Dr. Ricardo Rocah Protein [Mass/Vol] 9.5 g/dL Critically high 6.4-8.2 [facility] Comment on above: Performed By: #### H STROPN, LIPA, CMP, TSH ####[facility] [address] [place] [address]Dr. Ricardo Rocha Sodium [Moles/Vol] 129 mmol/L Critically low 136-145 [facility] Comment on above: Performed By: #### H STROPN, LIPA, CMP, TSH ####[facility] [address] [place] [address]Dr. Ricardo Rocha Urea nitrogen [Mass/Vol] 40.0 mg/dL Critically high 7.0-18.0 [facility] Comment on above: Performed By: #### H STROPN, LIPA, CMP, TSH ####[facility] [address] [place] [address]Dr. Ricardo Rocha Urea nitrogen/Creatinine [Mass ratio] 17.9 mg/mg Normal [facility] Comment on above: Performed By: #### H STROPN, LIPA, CMP, TSH ####[facility] [address] [place] [address]Dr. Ricardo Rocha PROTIMEon 06-10-2022 INR Coag (PPP) [Relative time] 1.00 {INR} Normal [facility] Comment on above: Performed By: #### P TT, PT ####[facility] [address] [place] [address]Dr. Ricardo Rocha INR GUIDELINES SEE BELOW Normal [facility] Comment on above: Result Comment: AMBROSIO RED INR: 2.0 - 3.0 CONDITIONS NOT LISTED BELOW 2.5 - 3.5 FOR PROSTHETIC HEART VALVE REPLACEMENT 2.5 - 3.5 RECURRENT THROMBOSIS Performed By: #### P TT, PT ####[facility] [address] [place], [place] [address]Dr. Ricardo Rocha PT Coag (PPP) [Time] 10.8 s Normal 9.0-11.6 [facility] Comment on above: Performed By: #### P TT, PT ####[facility] [address] [place], [place] [address]Dr. Ricardo Rocha PTTon 06-10-2022 aPTT Coag (Bld) [Time] 31.7 s Normal 22.3-36.2 [facility] Comment on above: Performed By: #### P TT, PT ####[facility] [address] [place], [place] [address]Dr. Ricardo Rocha TROPONIN, HIGH SENSITIVITYon 06-10-2022 HSTROP 30.9 pg/mL Normal 4.0-51.3 [facility] Comment on above: Result Comment: CUT- OFF POINTS HAVE BEEN ESTABLISHED BASED ON THE FOURTH UNIVERSAL DEFINITIONS OF MYOCARDIALINFARCTION. THE UPPER REFERENCE LIMIT (URL) OF TROPONIN, DEFINED THE 99TH PERCENTILE OFcTnI DISTRIBUTION IN A REFERENCE POPULATION, HAS BEEN CONFIRMED THE DECISION THRESHOLDFOR IA DIAGNOSIS. Performed By: #### H STROPN, LIPA, CMP, TSH ####[facility] [address] [place] [address]Dr. Ricardo Rocha TSHon 06-10-2022 TSH 0.147 uIU/mL Critically low 0.358-3.740 [facility] Comment on above: Performed By: #### H STROPN, LIPA, CMP, TSH ####[facility] [address] [place] [address]Dr. Ricardo Rocha XR FOOT ALINE MIN 3 VIEWSon XR FOOT ALINE MIN 3 VIEWS Normal [facility] XR HAND RT MIN 3Von 06-02-20 XR HAND RT MIN 3V Normal [facility] CULTURE WOUNDon 05-15-2022 CULTURE WOUND Normal [facility] Comment on above: Performed By: #### W OUNDCX ####[facility] [address] [place], [place] [address]Dr. Ricardo Rocha CBC AUTO DIFFon 2022 BASO # 0.0 103/ul Normal 0.0-0.1 [facility] Comment on above: Performed By: #### C BC ####[facility] [address] [place] [address]Dr. Ricardo Rocha Basophils/100 WBC (Bld) 0.7 % Normal 0.2-2.0 [facility] Comment on above: Performed By: #### C BC ####[facility] [address] [place], [place] [address]Dr. Ricardo Rocha EO # 0.1 103/ul Normal 0.0-0.7 [facility] Comment on above: Performed By: #### C BC ####[facility] [address] [place] [address]Dr. Ricardo Rocha Eosinophils/100 WBC (Bld) 2.1 % Normal 0.9-7.0 [facility] Comment on above: Performed By: #### C BC ####[facility] [address] [place], [place] [address]Dr. Ricardo Rocha Erythrocyte distribution width (RBC) [Ratio] 13.2 % Normal 11.0-15.0 [facility] Comment on above: Performed By: #### C BC ####[facility] [address] [place] [address]Dr. Ricardo Rocha Hematocrit (Bld) [Volume fraction] 36.6 % Normal 36.0-48.0 [facility] Comment on above: Performed By: #### C BC ####[facility] [address] [place] [address]Dr. Ricardo Rocha Hemoglobin (Bld) [Mass/Vol] 11.9 g/dL Critically low 12.0-16.0 [facility] Comment on above: Performed By: #### C BC ####[facility] [address] [place] [address]Dr. Ricardo Rocha IG # 0.03 10e3/ul Normal 0.00-0.03 [facility] Comment on above: Performed By: #### C BC ####[facility] [address] [place] [address]Dr. Ricardo Rocha IG % 0.5 % Normal 0.0-0.5 [facility] Comment on above: Performed By: #### C BC ####[facility] [address] [place] [address]Dr. Ricardo Rocha LYMPH # 2.1 103/ul Normal 1.2-3.8 [facility] Comment on above: Performed By: #### C BC ####[facility] [address] [place] [address]DrIrina Nanomarcial Rocha Lymphocytes/100 WBC (Bld) 33.8 % Normal 20.5-60.0 [facility] Comment on above: Performed By: #### C BC ####[facility] [address] [place] [address]Dr. Nanomarcial Rocha MANUAL DIFF REQ NO Normal [facility] Comment on above: Performed By: #### C BC ####[facility] [address] [place] [address]DrIrina Ricardo Aj MCH (RBC) [Entitic mass] 25.7 pg Critically low 26.7-34.0 [facility] Comment on above: Performed By: #### C BC ####[facility] [address] [place], [place] [address]Dr. Ricardo Rocha MCHC (RBC) [Mass/Vol] 32.5 g/dL Normal 29.9-35.2 [facility] Comment on above: Performed By: #### C BC ####[facility] [address] [place] [id number]. Ricardo Aj MCV (RBC) [Entitic vol] 79.0 fL Critically low 81.0-99.0 [facility] Comment on above: Performed By: #### C BC ####[facility] [address] [place] [address]Dr. Nanomarcial Aj MONO # 0.4 103/ul Normal 0.3-0.8 [facility] Comment on above: Performed By: #### C BC ####[facility] [address] [place] [address]Dr. Ricardo Rocha Monocytes/100 WBC (Bld) 6.2 % Normal 1.7-12.0 [facility] Comment on above: Performed By: #### C BC ####[facility] [address] [place], [place] [address]Dr. Nanomarcial Aj NEUT # 3.5 103/ul Normal 1.4-6.5 [facility] Comment on above: Performed By: #### C BC ####[facility] [address] [place] [address]Dr. Nanomarcial Rocha Neutrophils/100 WBC (Bld) 56.7 % Normal 43.0-75.0 [facility] Comment on above: Performed By: #### C BC ####[facility] [address] [place] [address]Dr. Ricardo Aj Platelet mean volume (Bld) [Entitic vol] 10.9 fL Normal 9.5-13.5 [facility] Comment on above: Performed By: #### C BC ####[facility] [address] [place] [address]Dr. Nanomarcial Aj PLT 241 103/ul Normal 150-450 [facility] Comment on above: Performed By: #### C BC ####[facility] [address] [place] [address]Dr. Ricardo Aj RBC 4.63 106/ul Normal 4.20-5.40 [facility] Comment on above: Performed By: #### C BC ####[facility] [address] [place] [address]Dr. Ricardo Aj WBC 6.1 103/ul Normal 4.0-11.0 [facility] Comment on above: Performed By: #### C BC ####[facility] [address] [place] [address]Dr. Nanomarcial Rocha PROF CHEM 8 (BAS METB)on Anion gap [Moles/Vol] 11.8 mmol/L Normal [facility] Comment on above: Performed By: #### B MP ####[facility] [address] [place] [address]Dr. Ricardo Rocha Calcium [Mass/Vol] 9.2 mg/dL Normal 8.5-10.[address] [facility] Comment on above: Performed By: #### B MP ####[facility] [address] [place], [place] [address]Dr. Ricardo Rocha Chloride [Moles/Vol] 99 mmol/L Normal 98-107 [facility] Comment on above: Performed By: #### B MP ####[facility] [address] [place], [place] [address]Dr. Ricardo Rocha CO2 [Moles/Vol] 24.7 mmol/L Normal 21.0-32.0 [facility] Comment on above: Performed By: #### B MP ####[facility] [address] [place] [address]Dr. Ricardo Aj Creatinine [Mass/Vol] 1.48 mg/dL Critically high 0.55-1.02 [facility] Comment on above: Performed By: #### B MP ####[facility] [address] [place] [address]Dr. Nanomarcial Aj EGFR-AF [place] 43 mL/min/1.73m2 Critically low >=60 [facility] Comment on above: Performed By: #### B MP ####[facility] [address] [place] [id number]. Ricardo Rocha EGFR-NON AF [place] 36 mL/min/1.73m2 Critically low >=60 [facility] Comment on above: Performed By: #### B MP ####[facility] [address] [place], [place] [address]Ki. Ricardo Rocha Glucose [Mass/Vol] 431 mg/dL Critically high 74-106 [facility] Comment on above: Performed By: #### B MP ####[facility] [address] [place] [id number]. Ricardo Rocha Potassium [Moles/Vol] 4.5 mmol/L Normal 3.5-5.1 [facility] Comment on above: Performed By: #### B MP ####[facility] [address] [place] [id number]. Ricardo Rocha Sodium [Moles/Vol] 131 mmol/L Critically low 136-145 [facility] Comment on above: Performed By: #### B MP ####[facility] [address] [place] [id number]. Ricardo Rocha Urea nitrogen [Mass/Vol] 23.0 mg/dL Critically high 7.0-18.0 [facility] Comment on above: Performed By: #### B MP ####[facility] [address] [place] [id number]. Ricardo Rocha Urea nitrogen/Creatinine [Mass ratio] 15.5 mg/mg Normal [facility] Comment on above: Performed By: #### B MP ####[facility] [address] [place] [id number]. Ricardo Rocha XR TOES LAINE MIN 2 Von 2021 XR TOES ALINE MIN 2 V Normal [facility] ALLIED HEALTHon 01-21-2021 ALLIED HEALTH HNO ID: [id number] Author: RT Parveen(R) Service: ? Author Type: [place]man Type: Allied Health Filed: 01/20/2021 10:30 PM [...] Parveen(R) January 20, 2021 10:29 PM Normal [facility] Basic Metabolic Panlon 01-21 Anion gap [Moles/Vol] 7 mmol/L Low 9-18 [facility] Calcium [Mass/Vol] 8.8 mg/dL Normal 8.5-10.2 [facility] Chloride [Moles/Vol] 99 mmol/L Normal 97-105 [facility] CO2 [Moles/Vol] 25 mmol/L Normal 22-30 [facility] Creatinine [Mass/Vol] 1.51 mg/dL High 0.58-0.96 [facility] eGFR- Amer. [address] [facility] ospital eGFR-All Other Races 35 . Normal [facility] Comment on above: Result Comment: eGFR (Estimated [...] GFR. Glucose [Mass/Vol] 141 mg/dL High 74-99 [facility] Comment on above: Result Comment: The [place] Diabetes Association (ADA) provides guidance for cutoff [...] Standards of Medical Care in Diabetes 2016, [place] [employer]. Diabetes Care. 2016.39(Suppl 1). Potassium [Moles/Vol] 4.7 mmol/L Normal 3.7-5.1 [facility] Sodium [Moles/Vol] 131 mmol/L Low 136-144 [facility] ospital Urea nitrogen [Mass/Vol] 42 mg/dL High 7-21 [facility] CBCon 01-21-2021 Absolute nRBC <0.01 Normal <0.01 [facility] al Erythrocyte distribution width (RBC) [Ratio] 13.1 % Normal 11.5-15.0 [facility] Hematocrit (Bld) [Volume fraction] 30.0 % Low 36.0-46.0 [facility] Hemoglobin (Bld) [Mass/Vol] 9.5 g/dL Low 11.5-15.5 [facility] MCH 24.4 pG Low 26.0-34.0 [facility] MCHC (RBC) [Mass/Vol] 31.7 g/dL Normal 30.5-36.0 [facility] MCV (RBC) [Entitic vol] 77.1 fL Low 80.0-100.0 [facility] Platelet mean volume (Bld) [Entitic vol] 11.1 fL Normal 9.0-12.7 [facility] Plate[facility] ([facility]ld) [#/Vol] 358 10*3/uL Normal 150-400 [facility] RBC (Bld) [#/Vol] 3.89 10*6/uL Low 3.90-5.20 [facility] WBC (Bld) [#/Vol] 9.64 10*3/uL Normal 3.70-11.00 [facility] CNDSon 01-21-2021 CNDS HNO ID: [id number] Author: Inna Hansen DO Service: Hospital Medicine [...] Team: Attending Provider: Inna Hansen DO Physician Data Integration Analyst: Garrett Simon PA-C Consulting: Taurus Ballard [...] PCP: referred to a new PCP in [place]. Future Appointments Date Time Provider Department Center 01/29/2021 11:40 AM Taurus Ballard MD [facility] The patient's risk for 30-day readmission is determined using the following contributing factors: Pt variables contributing to increased readmission risk: 42 Most Recent (more content not included)... Normal [facility] MRI KIDNEY WO/W IVCONon 06-0 MRI KIDNEY WO/W IVCON * * *Final Report* * * DATE OF EXAM: Jan 20 2021 10:35PM [facility] 0721 - MRI KIDNEY WO/W IVCON / PROCEDURE REASON: Renal cyst * * * * Physician Interpretation * * * * EXAMINATION: MRI ABDOMEN WITHOUT AND WITH IV CONTRAST CLINICAL HISTORY: Renal mass characterization. TECHNIQUE: A renal MRI was performed on a MR system utilizing the torso phased-array coil. Pulse sequences included: axial precontrast T1 weighted in- and bvi-eb-vfhry, axial and coronal HASTE, axial DWI with [...] be communicated with the ordering provider via [employer] (air taxi) staff message or phone message by Imaging Support Services within 2 business days of report finalization. 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ital Chloride [Moles/Vol] 97 mmol/L Normal 97-105 [facility] CO2 [Moles/Vol] 24 mmol/L Normal 22-30 [facility] ital Creatinine [Mass/Vol] 1.46 mg/dL High 0.58-0.96 [facility] eGFR- Amer. [address] [facility] ospital eGFR-All Other Races 36 . Normal [facility] Comment on above: Result Comment: eGFR (Estimated [...] ospital Comment on above: Result Comment: The [place] Diabetes [employer] (ADA) provides guidance for cutoff [...] Standards of Medical Care in Diabetes 2016, [place] [employer]. Diabetes Care. 2016.39(Suppl 1). Potassium [Moles/Vol] 3.9 mmol/L Normal 3.7-5.1 [facility] Sodium [Moles/Vol] 132 mmol/L Low 136-144 [facility] Urea nitrogen [Mass/Vol] 53 mg/dL High 7-21 [facility] CBCon 01-20-2021 Absolute nRBC <0.01 Normal <0.01 [facility] Erythrocyte distribution width (RBC) [Ratio] 12.8 % Normal 11.5-15.0 [facility] Hematocrit (Bld) [Volume fraction] 27.7 % Low 36.0-46.0 [facility] Hemoglobin (Bld) [Mass/Vol] 8.9 g/dL Low 11.5-15.5 [facility] MCH 24.5 pG Low 26.0-34.0 [facility] MCHC (RBC) [Mass/Vol] 32.1 g/dL Normal 30.5-36.0 [facility] MCV (RBC) [Entitic vol] 76.3 fL Low 80.0-100.0 [facility] Platelet mean volume (Bld) [Entitic vol] 11.1 fL Normal 9.0-12.7 [facility] Platelets (Bld) [#/Vol] 321 10*3/uL Normal 150-400 [facility] RBC (Bld) [#/Vol] 3.63 10*6/uL Low 3.90-5.20 [facility] WBC (Bld) [#/Vol] 11.05 10*3/uL High 3.70-11.00 [facility] CONSULT PROGon 01-20-2021 CONSULT PROG HNO ID: [id number] Author: Rajendra Cruz MD Service: Nephrology Author Type: Physician Type: Consult Progress Note Filed: 01/20/2021 1:44 PM Note Text: [facility] NEPHROLOGY CONSULT PROGRESS NOTE SERVICE DATE: January [...] DATE: January 20, 2021 1:43 PM PHONE: [phone] FOR AFTER HOUR CONCERNS BETWEEN 7PM - 7AM CONTACT ON-CALL NEPHROLOGY STAFF Normal [facility] THERAPY NTon 01-20-2021 THERAPY NT HNO ID: [id number] Author: Afia Radford, PT Service: Physical Therapy Author Type: Physical Therapist Type: Therapy (PT/OT/Speech/Resp) Filed: 01/20/2021 3:32 PM Note Text: Physical Therapy Treatment SERVICE DATE: 01/20/2021 SERVICE TIME: 1330 to 1353 ROOM: [place] [address] Recommended Discharge Disposition: Home PT Recommended Discharge [...] 0 Tub/Shower Type: tub shower Laundry: basement, ijwopuec-ei-pjl Equipment Owned: Cane;Standard Walker Prior Functional Level: [...] Diagnosis: Reduced mobility-other Interventions Provided: Gait Training (37902);Therapeutic Exercise (45884) Therapeutic Exercise (41828) Treatment Minutes: 8 Pt performed in supine position: AP, QS, GS x 10 B LE, pt instructed to do every hour while awake on their own. 7 days a week, HS, hip ABD, SAQ, SLR 10-20 reps/ 2-3x/day/ 7 days/week Gait Training (81510) Treatment Minutes: 15 $ Gait Training (52799) Billed Units: 1 unit Training AND education [...] 20, 2021 TIME: (more content not included)... [facility] THERAPY NT HNO ID: [id number] Author: Heidy Wright OT/L Service: Occupational Therapy Author Type: Occupational Therapist Type: Therapy (PT/OT/Speech/Resp) Filed: 01/20/2021 12:15 PM Note Text: Occupational Therapy Treatment SERVICE DATE: 01/20/2021 SERVICE TIME: 1155 to 1205 ROOM: [place] [address] Recommended Discharge Disposition: Home OT Recommended Discharge [...] 0 Tub/Shower Type: tub shower Laundry: basement, faalhuji-ss-nfz Equipment Owned: Cane;Standard Walker Prior Functional Level: [...] (generalized);General symptoms and signs-other Interventions Provided: Self Senior Living Management (57597) Self Senior Living Management (15493) Treatment Minutes: 10 $ Self Senior Living Management (02066) Billed Units: 1 unit Training AND education provided in: Benefits of in (more content not included)... [facility] THERAPY NT HNO ID: [id number] Author: KRUNAL Navarro Service: Occupational Therapy Author Type: Occupational Therapist Type: Therapy (PT/OT/Speech/Resp) Filed: 01/20/2021 8:24 AM Note Text: OCCUPATIONAL THERAPY MISSED VISIT SERVICE DATE: 01/20/2021 SERVICE TIME: 819 to 819 ROOM: [place] [address] Attempted Treatment. Patient not seen due to Declined. Pt states, It's too early when OT attempted to work with her. Will re-attempt as schedule permits. SIGNATURE: Heidy Wright OT/[place]der[place] PATIENT NAME: Aislinn Wheeler DATE: January 20, 2021 TIME: 8:24 AM Normal [facility] Basic Metabolic Panlon 01-19 Anion gap [Moles/Vol] 11 mmol/L Normal 9-18 [facility] Calcium [Mass/Vol] 8.5 mg/dL Normal 8.5-10.2 [facility] Chloride [Moles/Vol] 93 mmol/L Low 97-105 [facility] CO2 [Moles/Vol] 24 mmol/L Normal 22-30 [facility] Creatinine [Mass/Vol] 1.92 mg/dL High 0.58-0.96 [facility] eGFR- Amer. [address] [facility] ospital eGFR-All Other Races 26 . Normal [facility] Comment on above: Result Comment: eGFR (Estimated [...] ospital Comment on above: Result Comment: The [place] [employer] (ADA) provides guidance for cutoff [...] Standards of Medical Care in Diabetes 2016, [place] [employer]. Diabetes Care. 2016.39(Suppl 1). Potassium [Moles/Vol] 4.2 mmol/L Normal 3.7-5.1 [facility] Sodium [Moles/Vol] 128 mmol/L Low 136-144 [facility] Urea nitrogen [Mass/Vol] 77 mg/dL High 7-21 [facility] Anion gap [Moles/Vol] 11 mmol/L Normal 9-18 [facility] Calcium [Mass/Vol] 8.3 mg/dL Low 8.5-10.2 [facility] Chloride [Moles/Vol] 88 mmol/L Low 97-105 [facility] CO2 [Moles/Vol] 23 mmol/L Normal 22-30 [facility] Creatinine [Mass/Vol] 1.93 mg/dL High 0.58-0.96 [facility] eGFR- Amer. [address] [facility]ital eGFR-All Other Races 26 . Normal [facility] Comment on above: Result Comment: eGFR (Estimated [...] GFR. Glucose [Mass/Vol] 292 mg/dL High 74-99 [facility] Comment on above: Result Comment: The [place] Diabetes Association (ADA) provides guidance for cutoff [...] Standards of Medical Care in Diabetes 2016, [place] Diabetes [employer]. Diabetes Care. 2016.39(Suppl 1). Potassium [Moles/Vol] 3.8 mmol/L Normal 3.7-5.1 [facility] Sodium [Moles/Vol] 122 mmol/L Low 136-144 [facility] Urea nitrogen [Mass/Vol] 82 mg/dL High 7-21 [facility] CBCon 01-19-2021 Absolute nRBC <0.01 Normal <0.01 [facility] Erythrocyte distribution width (RBC) [Ratio] 12.8 % Normal 11.5-15.0 [facility] Hematocrit (Bld) [Volume fraction] 27.5 % Low 36.0-46.0 [facility] Hemoglobin (Bld) [Mass/Vol] 9.1 g/dL Low 11.5-15.5 [facility] MCH 24.9 pG Low 26.0-34.0 [facility] MCHC (RBC) [Mass/Vol] 33.1 g/dL Normal 30.5-36.0 [facility] MCV (RBC) [Entitic vol] 75.1 fL Low 80.0-100.0 [facility] Platelet mean volume (Bld) [Entitic vol] 11.2 fL Normal 9.0-12.7 [facility] Platelets (Bld) [#/Vol] 297 10*3/uL Normal 150-400 [facility] RBC (Bld) [#/Vol] 3.66 10*6/uL Low 3.90-5.20 [facility] WBC (Bld) [#/Vol] 12.14 10*3/uL High 3.70-11.00 [facility] CONSULT PROGon 01-19-2021 CONSULT PROG HNO ID: [id number] Author: Rajendra Cruz MD Service: Nephrology Author Type: Physician Type: Consult Progress Note Filed: 01/19/2021 2:40 PM Note Text: [facility] NEPHROLOGY CONSULT PROGRESS NOTE SERVICE DATE: January [...] DATE: January 19, 2021 2:27 PM PHONE: [phone] FOR AFTER HOUR CONCERNS BETWEEN 7PM - 7AM CONTACT ON-CALL NEPHROLOGY STAFF Normal [facility] NUTRITIONon 01-19-2021 NUTRITION HNO ID: [id number] Author: Michelle Louis RD Service: Nutrition Therapy [...] history;Intake records;Patient/family self-report;Weight loss;Nausea;Vomiting Estimated kilocalorie needs: 0585-8352 Calorie Calculation Method: 30-35 kcals/kg Estimated protein [...] Question: Carbohydrate Control Answer: 3-5 CARBS/MEAL 01/18/21 3958 Anthropometrics: Height: 152.4 cm (5') Weight: 44.1 [...] January 19, 2021 TIME: 10:59 AM PAGER: [phone] I have reviewed the nutritional assessment note documented by the data analysis intern and I personally participated in the miller components. I have discussed the case and nutritional management of the patient's care. Michelle Louis MS,RD,LD,[facility] THERAPY NTon 01-19-2021 THERAPY NT HNO ID: [id number] Author: Afia Radford, PT Service: Physical Therapy Author Type: Physical Therapist Type: Therapy (PT/OT/Speech/Resp) Filed: 01/19/2021 2:57 PM Note Text: Physical Therapy Evaluation SERVICE DATE: 01/19/2021 SERVICE TIME: 1307 to 1331 ROOM: [place] [address] Recommended Discharge Disposition: Home PT Anticipated Discharge [...] 0 Tub/Shower Type: tub shower Laundry: basement, [id number] Equipment Owned: Cane;Standard Walker Prior Functional Level: [...] Diagnosis: Reduced mobility-other Interventions Provided: Evaluation;Therapeutic Exercise (31338);Gait Training (43225) $ Evaluation-Low (84734) Billed Units: 1 unit Therapeutic Exercise (76501) Treatment Minutes: 1 Patient performed in seated position: Marching, AP/HR, hip ABD, LAQ x10 B LE- instructions written on white board for pt to complete on her own. Gait Training (12997) Treatment Minutes: 8 $ Gait Training (19890) Billed Units: 1 unit Training AND education [...] present during visit: Aleksander Syed, SPT Normal [facility] Basic Metabolic Panlon 01-18 Anion gap [Moles/Vol] 13 mmol/L Normal 9-18 [facility] Calcium [Mass/Vol] 8.8 mg/dL Normal 8.5-10.2 [facility] Chloride [Moles/Vol] 88 mmol/L Low 97-105 [facility] CO2 [Moles/Vol] 22 mmol/L Normal 22-30 [facility] Creatinine [Mass/Vol] 2.21 mg/dL High 0.58-0.96 [facility] eGFR- Amer. [address] [facility]ital eGFR-All Other Races 23 . Normal [facility] Comment on above: Result Comment: eGFR (Estimated [...] ospital Comment on above: Result Comment: The [place] Diabetes Association (ADA) provides guidance for cutoff [...] Standards of Medical Care in Diabetes 2016, [place] Diabetes Association. Diabetes Care. 2016.39(Suppl 1). Potassium [Moles/Vol] 3.7 mmol/L Normal 3.7-5.1 [facility] Sodium [Moles/Vol] 123 mmol/L Low 136-144 [facility] Urea nitrogen [Mass/Vol] 93 mg/dL High 7-21 [facility] Anion gap [Moles/Vol] 16 mmol/L Normal 9-18 [facility] Calcium [Mass/Vol] 9.0 mg/dL Normal 8.5-10.2 [facility] Chloride [Moles/Vol] 93 mmol/L Low 97-105 [facility] CO2 [Moles/Vol] 21 mmol/L Low 22-30 [facility] Creatinine [Mass/Vol] 2.59 mg/dL High 0.58-0.96 [facility] eGFR- Amer. [address] [facility] eGFR-All Other Races 19 . Normal [facility] Comment on above: Result Comment: eGFR (Estimated [...] GFR. Glucose [Mass/Vol] 130 mg/dL High 74-99 [facility] Comment on above: Result Comment: The [place] Diabetes Association (ADA) provides guidance for cutoff [...] Standards of Medical Care in Diabetes 2016, [place] Diabetes Association. Diabetes Care. 2016.39(Suppl 1). Potassium [Moles/Vol] 4.7 mmol/L Normal 3.7-5.1 [facility] Sodium [Moles/Vol] 130 mmol/L Low 136-144 [facility] Urea nitrogen [Mass/Vol] 97 mg/dL High 7-21 [facility] CASE [facility]GT [facility] [id number] Author: Nicol Landin RN Service: ? Author Type: Registered Nurse Type: Care Mgt Initial Assessment Filed: 01/18/2021 10:57 AM Note Text: CARE MANAGEMENT: ASSESSMENT AND DISCHARGE PLAN SERVICE DATE: January 18, 2021 SERVICE TIME: 10:51 AM PRIMARY CARE PHYSICIAN: No Pcp Phone: None ADMISSION STATUS: Inpatient Needs Prior to Discharge: To Be Determined MEDICAL: MEDICARE A Patient/Manager Hi Stated Goals: To have reduction in pain;To [...] scheduled Advance Directive: Current Advance Directive: None Cake Maker Attempted to Assist with AD Completion: Yes [...] Walker Has the Patient Been in a Care Home Facility in the Past 30 days?: [...] and plan for meeting these needs: Patient's sodtxypb-sg-klm and son live close by and come over to help often Patient's perception of need for this admission: necessary Medication Adherance I am convinced of the importance of my prescription medication: 0 - Agree Completely I worry that my prescription medication will do more harm than good to me : 0 - Disagree Completely I feel financially burdened by my caj-xn-dgvxwv expenses for my prescription medication:: 0 - Disagree Completely Risk Score: 0 Patient is categorized as: Low risk < 2 Are you interested in bedside delivery of your medications? Yes Is Patient Psychosocially Complex?: Yes, refer to Social Work ASSESSMENT AND PLAN: Medical Needs: Medical Needs: Two or more chronic diseases Psychosocial Needs: Psychosocial Needs: None FREEDOM OF CHOICE EXPLAINED: [place] of Choice Given: No Reason Not Given: [...] and hospitalized about 1 month ago in [place] but no resolution of her symptoms. She [...] 18, 2021 TIME: 10:51 AM PAGER/CONTACT #: [phone] Normal [facility] CBCon 01-18-2021 Absolute nRBC <0.01 Normal <0.01 [facility] Erythrocyte distribution width (RBC) [Ratio] 13.0 % Normal 11.5-15.0 [facility] Hematocrit (Bld) [Volume fraction] 31.2 % Low 36.0-46.0 [facility] Hemoglobin (Bld) [Mass/Vol] 9.9 g/dL Low 11.5-15.5 [facility] MCH 24.4 pG Low 26.0-34.0 [facility] MCHC (RBC) [Mass/Vol] 31.7 g/dL Normal 30.5-36.0 [facility] MCV (RBC) [Entitic vol] 77.0 fL Low 80.0-100.0 [facility] Platelet mean volume (Bld) [Entitic vol] 10.8 fL Normal 9.0-12.7 [facility] Platelets (Bld) [#/Vol] 310 10*3/uL Normal 150-400 [facility] RBC (Bld) [#/Vol] 4.05 10*6/uL Normal 3.90-5.20 [facility] WBC (Bld) [#/Vol] 17.03 10*3/uL High 3.70-11.00 [facility] CONSULTon 01-18-2021 CONSULT HNO ID: [id number] Author: Annie Trinidad DO Service: Hypertension AND [...] Noted a no-show appointment to urology at [facility]. She also reports that she has [...] for n (more content not included)... Normal [facility] CONSULT HNO ID: [id number] Author: Taurus Ballard MD Service: Urology Author Type: Physician Type: Consults Filed: 01/18/2021 8:27 AM Note Text: [facility] UROLOGY CONSULT NOTE [...] the pa (more content not included)... Normal [facility] Creatinine,Urine,Ranon 01-18 Creatinine,Urine,Ran 33.5 mg/dL Normal 20-300 [facility] Comment on above: Performed By: #### U SAUNDRA, UOSM, UCRR ####[facility] [place], [place] [phone] Magnesiumon 01-18-2021 Magnesium [Mass/Vol] 1.9 mg/dL Normal 1.7-2.3 [facility] NURSING PROGon 01-18-2021 NURSING PROG HNO ID: [id number] Author: Barbara Spicer RN Service: ? Author Type: Registered Nurse Type: Nursing Progress Note Filed: 01/18/2021 10:28 AM Note Text: Nursing Progress Note Patient Name: Aislinn Wheeler Patient Location: [place] [address] Daily Note:pt report given to pete LE. Pt VSS. Pt belongings packed. This note was completed by: Barbara Spicer Normal [facility] Osmolalityon 01-18-2021 Osmolality [Osmolality] 298 mosm/kg Normal 275-300 [facility] Comment on above: Performed By: #### O SM ####[facility] [place], [place] [phone] Osmolality, Urineon 01-19-20 21 Osmolality, Urine 273 mOsm/kg Normal 50-1200 [facility] Comment on above: Performed By: #### U SAUNDRA UOSM, UCRR ####[facility] [address] [place], [place] [phone] Sepsis Lactateon 01-18-2021 Sepsis Lactate 0.9 mmol/L Normal <2.1 [facility] Sodium,Urine,Randomon 2020 Sodium (U) [Moles/Vol] 32 mmol/L Normal 14-216 [facility] Comment on above: Performed By: #### U SAUNDRA, UOSM, UCRR ####[facility] [address] [place], [place] [phone] THERAPY NTon 01-18-2021 THERAPY NT HNO ID: [id number] Author: Wendy Montes De Oca OT/L Service: Occupational Therapy Author Type: Occupational Therapist Type: Therapy (PT/OT/Speech/Resp) Filed: 01/18/2021 1:10 PM Note Text: Occupational Therapy Evaluation SERVICE DATE: 01/18/2021 SERVICE TIME: 0854 to 0915 ROOM: [place] [address] Recommended Discharge Disposition: Home OT Recommended Discharge [...] 0 Tub/Shower Type: tub shower Laundry: basement, qrffxatc-ip-dug Equipment Owned: Cane;Standard Walker CURRENT FUNCTIONAL STATUS: [...] Wheeled Walker Toilet/Commode Shower Functional Mobility Blank shankra indicate activity not attempted Learning/Educational Needs: Discharge [...] and signs-other Interventions Provided: Evaluation $ Evaluation-Moderate (27005) Billed Units: 1 unit Training and education [...] DATE: January 18, 2021 TIME: 1:06 PM [facility] Urine Cultureon 01-18-2021 Bacteria identified Cx Nom (U) Sp. Request/Comment: - Specimen received in preservative Culture Result - No growth (<1,000 CFU/ml) [facility] Comment on above: Performed By: #### U RCUL ####[address] [phone] Blood Cultureon 01-17-2021 Bacteria identified Cx Nom (Bld) Culture Result - No growth 5 days Normal [facility] Comment on above: Performed By: #### B LCUL ####[place] [id number] [place], [place] [phone] C-Reactive Proteinon 021 C-Reactive Protein 32.4 mg/dL High <0.9 [facility] Comment on above: Performed By: #### W SR ####[address] [phone] CBC and Differentialon 01-17 Abs Baso <0.03 Normal <0.11 [facility] Abs Eosin <0.03 Normal <0.46 [facility] Abs [place] 0.73 k/uL Normal <0.87 [facility] Abs Neut 14.70 k/uL High 1.45-7.50 [facility] Absolute nRBC <0.01 Normal <0.01 [facility] Basophils/100 WBC (Bld) 0.1 % Normal [facility] DTYPE Auto Diff Normal [facility] Eosinophils/100 WBC (Bld) 0.0 % Normal [facility] Erythrocyte distribution width (RBC) [Ratio] 13.1 % Normal 11.5-15.0 [facility] Hematocrit (Bld) [Volume fraction] 35.1 % Low 36.0-46.0 [facility] Hemoglobin (Bld) [Mass/Vol] 11.3 g/dL Low 11.5-15.5 [facility] Lymphocytes (Bld) [#/Vol] 1.88 10*3/uL Normal 1.00-4.00 [facility] Lymphocytes/100 WBC (Bld) 10.8 % Normal [facility] MCH 24.2 pG Low 26.0-34.0 [facility] MCHC (RBC) [Mass/Vol] 32.2 g/dL Normal 30.5-36.0 [facility] MCV (RBC) [Entitic vol] 75.2 fL Low 80.0-100.0 [facility] Monocytes/100 WBC (Bld) 4.2 % Normal [facility] Neutrophils/100 WBC (Bld) 84.9 % Normal [facility] NRBCs 0.0 /100 WBC Normal 0 [facility] l Platelet mean volume (Bld) [Entitic vol] 11.4 fL Normal 9.0-12.7 [facility] Platelets (Bld) [#/Vol] 345 10*3/uL Normal 150-400 [facility] RBC (Bld) [#/Vol] 4.67 10*6/uL Normal 3.90-5.20 [facility] WBC (Bld) [#/Vol] 17.33 10*3/uL High 3.70-11.[address] [facility] [address] ABD/PEL WO IVCONon 2020 CT ABD/PEL WO IVCON * * *Final Report* * * DATE OF EXAM: Jan 17 2021 8:05PM [facility] 0531 - CT ABD/PEL WO IVCON / PROCEDURE REASON: Mass or lump, abdomen pelvis * * * * Physician Interpretation * * * * CT OF CHEST, ABDOMEN AND PELVIS WITHOUT CONTRAST CLINICAL HISTORY: Aspiration (accession [id number]), Mass or lump, abdomen pelvis (accession [id number]) Concern for possible source of infection vs [...] report for details. Pelvic bones are intact. Universal Branch Consultant (topogram) images: Unremarkable. IMPRESSION: Left upper lobe [...] be communicated with the ordering provider via Blink (air taxi) staff message or phone message by Imaging Support Services within 2 business days of report finalization. ACTIONABLE RESULT: FOLLOW-UP Acuity: Actionable Findings: Kidneys/Ureters/Bladder /Adrenal Routing Code: GU_1 Recommendation: MRI KIDNEY WO/W IVCON Time Frame: non-urgent, but prompt follow-up. COMMUNICATION: Results will be communicated with the ordering provider via Blink (air taxi) staff message or phone message by Imaging Support Services within 2 business days of report finalization. Algorithms for management of incidental imaging findings can be found on the [facility] Intranet Sharepoint site at: [email or web address] Managing%20Incidental%2 0Findi ngs%20at%20Imaging/Form s/AllItems.aspx Laborer Adjustable Steel Joist: GUILLE Transcribe Date/Time: Jan 17 2021 8:20P Dictated by : PADILLA JIM MD This examination was interpreted and the report reviewed and electronically signed by: PADILLA JIM MD on Jan 17 2021 8:43PM EST [id number] ACTIONABLE Invalid Interpretation Code [facility] CT BRAIN WO IVCONon 01-18-[address] BRAIN WO IVCON * * *Final Report* * * DATE OF EXAM: Jan 17 2021 4:26PM [facility] 0504 - CT BRAIN WO IVCON [...] base and imaged soft tissues are unremarkable. Universal Branch Consultant (topogram) images: No additional findings. IMPRESSION: No acute intracranial hemorrhage or mass effect is seen Laborer Adjustable Steel Joist: GUILLE Transcribe Date/Time: Jan 17 2021 4:47P Dictated by : JOHN THAKKAR MD This examination was interpreted and the report reviewed and electronically signed by: JOHN THAKKAR MD on Jan 17 2021 4:48PM EST [id number] [facility] CT CERVICAL SPINE WO IVCONon 01-17-2021 CT CERVICAL SPINE WO IVCON * * *Final Report* * * DATE OF EXAM: Jan 17 2021 4:26PM [facility] 0505 - CT CERVICAL SPINE WO [...] Counting reference: Craniocervical junction. Anatomic Variants: None. Universal Branch Consultant (topogram) images: No additional findings. Alignment: Straightening [...] vertebrae with counting from the craniocervical junction. Laborer Adjustable Steel Joist: PSCB Transcribe Date/Time: Jan 17 2021 4:49P Dictated by : JOHN THAKKAR MD This examination was interpreted and the report reviewed and electronically signed by: JOHN THAKKAR MD on Jan 17 2021 4:53PM EST [id number] Normal [facility] CT CHEST WO IVCONon 01-18-[address] CHEST WO IVCON * * *Final Report* * * DATE OF EXAM: Jan 17 2021 8:05PM [facility] 0541 - CT CHEST WO IVCON / PROCEDURE REASON: Aspiration * * * * Physician Interpretation * * * * CT OF CHEST, ABDOMEN AND PELVIS WITHOUT CONTRAST CLINICAL HISTORY: Aspiration (accession [id number]), Mass or lump, abdomen pelvis (accession [id number]) Concern for possible source of infection vs [...] report for details. Pelvic bones are intact. Universal Branch Consultant (topogram) images: Unremarkable. IMPRESSION: Left upper lobe [...] be communicated with the ordering provider via Blink (air taxi) staff message or phone message by Imaging Support Services within 2 business days of report finalization. ACTIONABLE RESULT: FOLLOW-UP Acuity: Actionable Findings: Kidneys/Ureters/Bladder /Adrenal Routing Code: GU_1 Recommendation: MRI KIDNEY WO/W IVCON Time Frame: non-urgent, but prompt follow-up. COMMUNICATION: Results will be communicated with the ordering provider via Blink (air taxi) staff message or phone message by Imaging Support Services within 2 business days of report finalization. Algorithms for management of incidental imaging findings can be found on the [facility] Intranet Sharepoint site at: [email or web address] Managing%20Incidental%2 0Findi ngs%20at%20Imaging/Form s/AllItems.aspx Laborer Adjustable Steel Joist: GUILLE Transcribe Date/Time: Jan 17 2021 8:20P Dictated by : PADILLA JIM MD This examination was interpreted and the report reviewed and electronically signed by: PADILLA JIM MD on Jan 17 2021 8:43PM EST [id number] ACTIONABLE Invalid Interpretation Code [facility] CT LUMBAR SPINE WO IVCONon 0 01-17-2021 CT LUMBAR SPINE WO IVCON * * *Final Report* * * * * * SEE BOTTOM OF REPORT FOR ADDENDED TEXT * * * DATE OF EXAM: Jan 17 2021 5:34PM [facility] 0508 - CT LUMBAR SPINE WO [...] are 5 lumbar-type vertebrae. Anatomic variant: None. Universal Branch Consultant (topogram) images: No additional findings. Alignment: Alignment [...] on 01/17/2021 6:08 PM via verbal communication. Laborer Adjustable Steel Joist: GUILLE Transcribe Date/Time: Jan 17 2021 6:05P Dictated by : JOHN THAKKAR MD This examination was interpreted and the report reviewed and electronically signed by: JOHN THAKKAR MD on Jan 17 2021 6:01PM EST This document has been addended by: JOHN THAKKAR MD on Jan 17 2021 6:08PM EST [id number] Normal [facility] CT THORACIC SPINE WO IVCONon 01-17-2021 CT THORACIC SPINE WO IVCON * * *Final Report* * * DATE OF EXAM: Jan 17 2021 5:34PM [facility] 0514 - CT THORACIC SPINE WO [...] the purposes of this report, anatomic variants: Universal Branch Consultant (topogram) images: No additional findings. Alignment: Alignment [...] and assume there are 5 lumbar-type vertebrae. Laborer Adjustable Steel Joist: GUILLE Transcribe Date/Time: Jan 17 2021 6:03P Dictated by : JOHN THAKKAR MD This examination was interpreted and the report reviewed and electronically signed by: JOHN THAKKAR MD on Jan 17 2021 6:13PM EST [id number] Normal [facility] Comp Metabolic Panelon 01-17 Albumin [Mass/Vol] 3.0 g/dL Low 3.9-4.9 [facility] ALP [Catalytic activity/Vol] 162 U/L High 34-123 [facility] ALT [Catalytic activity/Vol] 7 U/L Normal 7-38 [facility] Anion gap [Moles/Vol] 17 mmol/L Normal 9-18 [facility] AST [Catalytic activity/Vol] 15 U/L Normal 13-35 [facility] Bilirubin [Mass/Vol] 0.4 mg/dL Normal 0.2-1.3 [facility] Calcium [Mass/Vol] 9.6 mg/dL Normal 8.5-10.2 [facility] Chloride [Moles/Vol] 83 mmol/L Low 97-105 [facility] CO2 [Moles/Vol] 20 mmol/L Low 22-30 [facility] Creatinine [Mass/Vol] 2.93 mg/dL High 0.58-0.96 [facility] eGFR- Amer. [address] [facility] eGFR-All Other Races 16 . Normal [facility] Comment on above: Result Comment: eGFR (Estimated [...] GFR. Glucose [Mass/Vol] 216 mg/dL High 74-99 [facility] Comment on above: Result Comment: The [place] Diabetes [employer] (ADA) provides guidance for cutoff [...] Standards of Medical Care in Diabetes 2016, [place] [employer]. Diabetes Care. 2016.39(Suppl 1). Potassium [Moles/Vol] 5.5 mmol/L High 3.7-5.1 [facility] Protein [Mass/Vol] 9.5 g/dL High 6.3-8.0 [facility] Sodium [Moles/Vol] 120 mmol/L Low 136-144 [facility] Comment on above: Result Comment: Resu lt checked and verified Urea nitrogen [Mass/Vol] 104 mg/dL High 7-21 [facility] ED NOTEon 01-17-2021 ED NOTE HNO ID: [id number] Author: Prerna Luke RN Service: ? Author Type: Registered Nurse Type: ED Notes Filed: 01/17/2021 9:32 PM Note Text: Report called to 4E RN. Patient stable for transport at this time. Normal [facility] ED NOTE HNO ID: [id number] Author: Prerna Luke RN Service: ? Author Type: Registered Nurse Type: ED Notes Filed: 01/17/2021 9:20 PM Note Text: 16Fr chaves inserted with 500 cc urine immediately drained. Patient tolerated well. [facility] ED NOTE HNO ID: [id number] Author: Prerna Luke RN Service: ? Author Type: Registered Nurse Type: ED Notes Filed: 01/17/2021 7:22 PM Note Text: BC obtained by lab. ABX infusing at this time. [facility] ED NOTE HNO ID: [id number] Author: Prerna Luke RN Service: ? Author Type: Registered Nurse Type: ED Notes Filed: 01/17/2021 7:06 PM Note Text: This RN and 2 medics unable to straight stick patient for blood or draw from existing IVs. Lab will draw one set of BC; GIANNI Tucker notified that only one set will be obtained. [facility] ED NOTE HNO ID: [id number] Author: Prerna Luke RN Service: ? Author Type: Registered Nurse Type: ED Notes Filed: 01/17/2021 4:25 PM Note Text: XR at bedside [facility] ED NOTE HNO ID: [id number] Author: Prerna Luke RN Service: ? Author Type: Registered Nurse Type: ED Notes Filed: 01/17/2021 4:03 PM Note Text: covid swab obtained and walked to lab. [facility] ED NOTE HNO ID: [id number] Author: Bharat Patterson RN Service: ? Author [...] time Reports oral intake has been poor [facility] ED PROV NOTEon 01-17-2021 ED PROV NOTE HNO ID: [id number] Author: Garrett Simon PA-C Service: Emergency Medicine Author Type: Physician Data Integration Analyst Type: ED Provider Notes Filed: 01/17/2021 9:27 PM Note Text: Attestation signed by Cory Crawley III, MD at 01/18/2021 12:06 PM Attending Note I have personally performed a face to face assessment of the patient and have reviewed the PA/DIE STORAGE WORKER note. My miller findings include: This is [...] significant midlin (more content not included)... Normal [facility] HISTORY PHYSICALon HISTORY PHYSICAL HNO ID: [id number] Author: Trevro Porras MD Service: Hospital Medicine Author Type: Physician Type: HANDP Filed: 01/17/2021 10:12 PM Note Text: DEPARTMENT OF HOSPITAL MEDICINE HISTORY AND PHYSICAL EXAM SERVICE DATE: 01/17/2021 Code Status: Not on file SERVICE TIME: 10:00 PM Primary Care Physician: No Pcp NIGHT AND WEEKEND COVERAGE: [place] COVERAGE: Days: [phone], please contact via Blink (air taxi) [employer]NX[employer]age Nights: [phone], please page CC Hospitalist Night coverage pager [phone] Subjective CHIEF COMPLAINT: Generalized weakness, falls HPI: [...] Most recen (more content not included)... Normal [facility] Intermed Rapid COVIDon 01-17 SARS-CoV-2 (COVID-19) RNA ADRIEL+probe Ql (Unsp spec) UPPER RESPIRATORY TRACT SWAB Normal [facility] Comment on above: Performed By: #### I TCOVD ####[facility] [address] [place], [place] [phone] SARS-CoV-2 (COVID-19) RNA ADRIEL+probe Ql (Unsp spec) Negative for COVID19 (SARS CoV2) by RT-PCR or equivalent method. Normal Negative for COVID19 (SARS CoV2) by RT-PCR or equivalent method. [facility] Comment on above: Result Comment: This test was developed and its performance characteristics determined by [facility]'s [facility] [place]. This test has been authorized by FDA under an Emergency Use Authorization (EUA). This test has been validated in accordance with the FDA's Guidance Document Policy for Diagnostics Testing in Laboratories Certified to Perform High Complexity Testing under CLIA prior to Emergency use Authorization for Coronavirus Disease 2019 during the Public Health Emergency issued on October 19, 2019. Test performed by [facility], [facility] [place], [address] [place], [place] [address]. Performed By: #### I TCOVD ####[facility] [place], [place] [phone] Magnesiumon 01-17-2021 Magnesium [Mass/Vol] 2.0 mg/dL Normal 1.7-2.3 [facility] NT Pro BNPon 01-17-2021 PRO B Natr Peptide 394 pg/mL High <125 [facility] Sed Rate Westergrenon 2020 Sed Rate Westergren 124 mm/hr High 0-20 [facility] Comment on above: Performed By: #### W SR ####[place] [id number] [place], [place] [phone] TSHon 01-17-2021 TSH Qn 0.615 m[IU]/L Normal 0.270-4.200 [facility] Trop[facility] Ton 01-17-2021 Troponin T.cardiac [Mass/Vol] 0.023 ug/L Normal 0.000-0.029 [facility] Urinalysis with Microscopico n 01-17-2021 Bacteria Present Critically abnormal 0 [facility] Bilirubin, Urine Negative Normal Negative [facility] pital Cast SEE COMMENT Normal 0 [facility] Comment on above: Result Comment: 0 Clarity (U) Turbid Critically abnormal Clear [facility] Color (U) Yellow Normal Yellow [facility] Glucose Ql (U) Negative Normal Negative [facility] Hemoglobin/Blood,Ur 2+ Critically abnormal Negative [facility] Ketones Ql (U) Negative Normal Negative [facility] Leukest 3+ Critically abnormal Negative [facility] Nitrite Ql (U) Positive Critically abnormal Negative [facility] pH (U) 8.5 [pH] High 5.0-8.0 [facility] Protein, Urine 2+ Critically abnormal Negative [facility] RBC 3-5 Critically abnormal 0-3 [facility] Specific [place], Ur 1.013 Normal 1.005-1.030 [facility] Urobilinogen Qn (U) 0.2 {Madeleine'U}/dL Normal 0.2-1.0 [facility] WBC (U) [#/Vol] /uL Critically abnormal 0-5 [facility] Urine Cultureon 01-17-2021 Bacteria identified Cx Nom [...] F Ertapenem SUSCEPTIBLE <=0.5 F Critically abnormal [facility] Comment on above: Performed By: #### U RCUL ####[facility] [address] [place], [place] [phone] XR CHEST 1V FRONTAL PORTon 0 01-17-2021 [...] exam with no evidence of acute disease. Laborer Adjustable Steel Joist: PSCB Transcribe Date/Time: Jan 17 2021 4:40P Dictated by : FLASH WOODS MD This examination was interpreted and the report reviewed and electronically signed by: FLASH WOODS MD on Jan 17 2021 4:41PM EST [id number] Normal [facility] Vital Signs Date Time Vital Sign Value Performing Clinician Facility 03-26-2024 10:48-0400 Body mass index (BMI) [Ratio] 24.41 kg/m2 Carmenza Nolen MD Work Phone: [facility] 03-26-2024 10:48-0400 Body weight 56.7 kg Carmenza Nolen MD Work Phone: [facility] Comment on above: VERBAL 01-12-2024 13:50-0400 Diastolic blood pressure 69 mm[Hg] Taurus Ballard MD Work Phone: [facility] 01-12-2024 13:50-0400 Heart rate 75 /min Taurus Ballard MD Work Phone: [facility] 01-12-2024 13:50-0400 Systolic blood pressure 142 mm[Hg] Taurus Ballard MD Work Phone: [facility] 10-25-2023 15:12-0500 Blood Pressure Location HEIDY ARNOLD [facility] 10-25-2023 15:12-0500 Body temperature 96.8 [degF] HEIDY ARNOLD [facility] 10-25-2023 15:12-0500 Diastolic blood pressure 78 mm[Hg] HEIDY ARNOLD [facility] 10-25-2023 15:12-0500 Heart rate 86 /min HEIDY ARNOLD [facility] 10-25-2023 15:12-0500 Systolic blood pressure 122 mm[Hg] HEIDY ARNOLD [facility] 08-01-2023 15:00-0500 Body height 154.94 cm [facility] 06-08-2023 13:00-0400 Body height 154.94 cm Tondra Mapus Other [facility] Other 06-08-2023 13:00-0400 Body mass index (BMI) [Ratio] 25.37 kg/m2 Tondra Mapus Other [facility] Other 06-08-2023 13:00-0400 Body weight 60.92 kg Tondra Mapus Other [facility] Other 06-08-2023 13:00-0400 Diastolic blood pressure 66 mm[Hg] Tondra Mapus Other [facility] Other 06-08-2023 13:00-0400 Respiratory rate 18 /min Tondra Mapus Other [facility] Other 06-08-2023 13:00-0400 SaO2% (BldA) [Mass fraction] 100 % Tondra Mapus Other [facility] Other 06-08-2023 13:00-0400 Systolic blood pressure 107 mm[Hg] Tondra Mapus Other [facility] Other 05-18-2023 11:00-0400 Body height 154.94 cm Tondra Mapus Other [facility] Other 05-18-2023 11:00-0400 Body mass index (BMI) [Ratio] 24.69 kg/m2 Tondra Mapus Other [facility] Other 05-18-2023 11:00-0400 Body weight 59.29 kg Tondra Mapus Other [facility] Other 05-18-2023 11:00-0400 Diastolic blood pressure 96 mm[Hg] Tondra Mapus Other [facility] Other 05-18-2023 11:00-0400 Respiratory rate 18 /min Tondra Mapus Other [facility] Other 05-18-2023 11:00-0400 SaO2% (BldA) [Mass fraction] 97 % Tondra Mapus Other [facility] Other 05-18-2023 11:00-0400 Systolic blood pressure 161 mm[Hg] Tondra Mapus Other [facility] Other 02-22-2023 08:34-0400 Blood Pressure Location Lisa Lue [facility] 02-22-2023 08:34-0400 Diastolic blood pressure 66 mm[Hg] Lisa Lue [facility] 02-22-2023 08:34-0400 Heart rate 76 /min Lisa Lue [facility] 02-22-2023 08:34-0400 Systolic blood pressure 106 mm[Hg] Lisa Lue [facility] 12-27-2022 16:00-0400 Body height 154.94 cm Eli Mendenhalls Other [facility] Other 12-27-2022 16:00-0400 Body mass index (BMI) [Ratio] 26.11 kg/m2 Azyanet Mendenhalls Other [facility] Other 12-27-2022 16:00-0400 Body temperature 96.5 [degF] Eli Mendenhalls Other [facility] Other 12-27-2022 16:00-0400 Body weight 62.69 kg Eli Mendenhalls Other [facility] Other 12-27-2022 16:00-0400 Diastolic blood pressure 98 mm[Hg] Eli Mendenhalls Other [facility] Other 12-27-2022 16:00-0400 Respiratory rate 18 /min Eli Mendenhalls Other [facility] Other 12-27-2022 16:00-0400 SaO2% (BldA) [Mass fraction] 98 % Eli Mendenhalls Other [facility] Other 12-27-2022 16:00-0400 Systolic blood pressure 151 mm[Hg] Azyanet Zas Other [facility] Other 09-21-2022 08:42-0500 Blood Pressure Location Lisa Lue [facility] 09-21-2022 08:42-0500 Diastolic blood pressure 67 mm[Hg] Lisa Lue [facility] 09-21-2022 08:42-0500 Heart rate 74 /min Lisa Lue [facility] 09-21-2022 08:42-0500 Systolic blood pressure 103 mm[Hg] Lisa Lue [facility] Encounters Encounter Date Encounter Type Care Provider Facility Start: 04-24-2024 End: 04-24-2024 ambulatory SWETA LI [facility] Start: 04-16-2024 End: 04-16-2024 ambulatory AGUSTO OLMSTEAD Not Available Start: 04-15-2024 End: 04-15-2024 ambulatory Chioma Durán [facility] Start: 04-09-2024 End: 04-09-2024 ambulatory CARMENZA NOLEN Facility:[facility] Start: 04-09-2024 End: 04-09-2024 Patient encounter procedure [...] Start: 03-29-2024 End: 03-29-2024 ambulatory TAURUS BALLARD Facility:[facility] Start: 03-27-2024 ambulatory Nuria garrett APRN.CNP Work Phone: Pulmonary Medicine Start: 03-26-2024 End: 03-26-2024 ambulatory CARMENZA NOLEN Facility:[facility] Start: 03-26-2024 End: 03-26-2024 Patient encounter procedure Carmenza Nolen MD Work Phone: Urology Comment on above: Retention of urine ( Primary Dx); Screening for genitourinary condition; Type 2 diabetes mellitus with hyperglycemia, with long-term current use of insulin (HCC); BURKE (stress urinary incontinence, female) Start: 03-16-2024 End: 03-16-2024 ambulatory JYOTHI Orellana CAT [facility] Start: 03-15-2024 End: 03-15-2024 ambulatory ZACKERY HUGHESAN [facility] Start: 02-26-2024 Telephone encounter Flavio Coon RN [facility] Start: 02-12-2024 Telephone encounter Vonnie Wilder RN [facility] Comment on above: Results - Ct Start: 02-01-2024 End: 02-01-2024 ambulatory [facility] Facility:[facility] Start: 01-24-2024 End: 01-24-2024 ambulatory [facility] Start: 01-17-2024 End: 01-17-2024 ambulatory AGUSTO AICHHOLZ Not Available Start: 01-12-2024 End: 01-12-2024 Patient encounter procedure Taurus Ballard MD Work Phone: Urology Comment on above: Other hydronephrosis (Primary Dx); Screening for genitourinary condition Start: 01-12-2024 End: 01-12-2024 [facility] Start: 12-21-2023 End: 12-21-2023 ambulatory AGUSTO AICHHOLZ Not Available Start: 12-13-2023 End: 12-13-2023 ambulatory [facility] Start: 11-16-2023 End: 11-16-2023 ambulatory AGUSTO AICHHOLZ Not Available Start: 11-06-2023 Refill Asia Barreto RN [facility] Comment on above: 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; Complex regional pain syndrome type 1 of right upper extremity Start: 11-02-2023 ambulatory PA-C HEIDY Noel acility:[facility] Dailey Start: 10-25-2023 End: 10-26-2023 ambulatory PA-C HEIDY ARNOLD Facility:[facility] patel Start: 10-25-2023 End: 10-25-2023 Patient encounter procedure HEIDY ARNOLD [facility] Ashlie Start: 10-14-2023 End: 10-14-2023 ambulatory [facility] Start: 10-13-2023 End: 10-13-2023 ambulatory [facility] Start: 10-11-2023 End: 10-11-2023 ambulatory AGUSTO MARIBEL Not Available Start: 10-10-2023 Refill Agusto Gray WATER INSPECTOR [facility] Comment on above: 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; Complex regional pain syndrome type 1 of right upper extremity Start: 09-29-2023 End: 09-29-2023 ambulatory [facility] Start: 09-29-2023 End: 09-29-2023 ambulatory Drew Esqueda Research Coordinator [facility] Provider Adult Comment on above: CHRISTOPHER IRB# [phone] Start: 09-28-2023 E-mail encounter fro m caregiver Drew Esqueda Research Coordinator [facility] Start: 09-27-2023 Telephone encounter Drew bourne Research Coordinator [facility] Provider Adult Comment on above: Research F/U Start: 09-26-2023 Telephone encounter Drew bourne Research Coordinator [facility] Provider Adult Comment on above: Research F/U Start: 09-12-2023 End: 09-13-2023 ambulatory PA-C HEIDY ARNOLD Facility:[facility] Simpson ujennifer Start: 09-12-2023 End: 09-12-2023 Patient encounter procedure HEIDY ARNOLD [facility] Haroldo Start: 09-07-2023 Refill Yesenia Burnett RN [facility] Comment on above: 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 Start: 09-05-2023 End: 09-05-2023 ambulatory Tondra Mapus Other [facility] Other Start: 09-05-2023 Telephone encounter Tondra Mapus [facility] Start: 08-09-2023 End: 08-09-2023 ambulatory [facility] Start: 08-09-2023 End: 08-09-2023 ambulatory [facility] Start: 08-01-2023 End: 08-01-2023 Patient encounter procedure [facility] Michael Work Phone: Start: 07-18-2023 End: 07-19-2023 ambulatory PROMISE ARNOLD Facility: [place] Start: 07-05-2023 End: 07-05-2023 Orders Only Taurus Ballard MD Work Phone: Urology Comment on above: Kidney cyst, acquire d (Primary Dx) Start: 07-05-2023 Telephone encounter Eli PAYNE [facility] Start: 06-28-2023 End: 06-29-2023 ambulatory Lisa Porras Facility:[facility] Start: 06-28-2023 End: 06-28-2023 Patient encounter procedure Lisa Porras [facility] Start: 06-26-2023 End: 06-26-2023 ambulatory Tondra Mapus Other [facility] Other Start: 06-26-2023 Telephone encounter Tona Mapus [facility] Start: 06-23-2023 Telephone encounter Heidy harris RN Urology Comment on above: Surgical Followup Start: 06-22-2023 End: 06-23-2023 ambulatory TAURUS BALLARD Facility:[facility] Start: 06-19-2023 ambulatory Taurus newton MD Work Phone: Urology Comment on above: Aislinn alvarez procedure Start: 06-15-2023 Telephone encounter Vonnie seamanogteresa Comment on above: Pre-Op Teaching Start: 06-12-2023 End: 06-12-2023 ambulatory Tondra Mapus Other [facility] Other Start: 06-12-2023 Telephone encounter Tondra Mapus [facility] Start: 06-08-2023 End: 06-08-2023 Lab Drop off HEIDY Jennifer ARNOLD [facility] Start: 06-08-2023 End: 06-08-2023 Patient encounter procedure AGUSTO OLMSTEAD [facility] Start: 06-08-2023 (PUMP/CGM) Pump / Sensor Tondra Mapus [facility] Start: 06-08-2023 End: 06-09-2023 ambulatory Sum[facility] Other Start: 06-06-2023 Encounter for other preprocedural examination TAURUS BALLARD [facility] Start: 06-06-2023 End: 06-06-2023 ambulatory TAURUS BALLARD Facility:[facility] Start: 05-22-2023 End: 05-23-2023 ambulatory Lisa Porras Facility:[facility] Start: 05-22-2023 End: 05-22-2023 Patient encounter procedure Lisa Porras [facility] Start: 05-18-2023 End: 05-18-2023 ambulatory Tondra Mapus Other [facility] Other Start: 05-18-2023 FQ visit new patient Sara Augustine [facility] Start: 05-18-2023 Telephone encounter Taurus rees MD Work Phone: Urology Comment on above: Follow Up Start: 05-17-2023 End: 05-17-2023 ambulatory TAURUS BALLARD Facility:[facility] Start: 05-11-2023 End: 2023 ambulatory PA-C HEIDY ARNOLD Facility:[facility] Start: 05-11-2023 End: 05-11-2023 Lab Drop off HEIDY ARNOLD [facility] Start: 05-03-2023 End: 05-04-2023 ambulatory Lisa Sharife Facility:[facility] Start: 04-18-2023 End: 04-19-2023 ambulatory PA-C HEIDY ARNOLD Facility:[facility] Start: 04-18-2023 End: 04-19-2023 ambulatory Lisa MIrina Lue Facility:[facility] Start: 04-18-2023 End: 04-18-2023 Lab Drop off HEIDY ARNOLD [facility] Start: 04-18-2023 End: 04-18-2023 Patient encounter procedure Lisa Porras [facility] [place] Start: 04-04-2023 End: 04-04-2023 ambulatory Brigette Wseley Other [facility] Other Start: 04-04-2023 Telephone encounter Brigette Wesley [facility] Start: 02-22-2023 End: 02-23-2023 ambulatory Lisa M. Lue Facility:[facility] Start: 02-22-2023 End: 02-22-2023 Patient encounter procedure Lisa Porras [facility] Start: 01-09-2023 End: 01-09-2023 ambulatory Azyanet Mendenhalls Other [facility] Other Start: 01-09-2023 Telephone encounter Eli Mendenhalls [facility] Start: 01-03-2023 End: 01-04-2023 ambulatory BEAUTY COUNSELOR AGUSTO AICHHOLZ Facility:[facility] Start: 12-28-2022 End: 12-29-2022 ambulatory BEAUTY COUNSELOR AGUSTO AICHHOLZ Facility:[facility] Start: 12-27-2022 End: 12-27-2022 ambulatory Azyanet Mendenhalls Other [facility] Other Start: 12-27-2022 Office outpatient ne w 30 minutes Azyanet Mendenhalls [facility] Start: 12-15-2022 End: 12-16-2022 ambulatory BEAUTY COUNSELOR AGUSTO AICHHOLZ Facility:[facility] Start: 12-14-2022 End: 12-15-2022 ambulatory PETER D WILLYANDER Facility:[facility] Start: 10-27-2022 End: 10-28-2022 ambulatory BEAUTY COUNSELOR AGUSTO AICHHOLZ Facility:[facility] Start: 10-24-2022 End: 10-25-2022 ambulatory BEAUTY COUNSELOR AGUSTO AICHHOLZ Facility:[facility] Start: 10-12-2022 End: 10-13-2022 ambulatory BEAUTY COUNSELOR AGUSTO AICHHOLZ Facility:[facility] Start: 10-05-2022 End: 10-06-2022 ambulatory BEAUTY COUNSELOR AGUSTO AICHHOLZ Facility:[facility] Start: 09-29-2022 End: 09-30-2022 ambulatory BEAUTY COUNSELOR AGUSTO AICHHOLZ Facility:[facility] Start: 09-21-2022 End: 09-22-2022 ambulatory PETER D HIGHLANDER Facility:[facility] Start: 09-21-2022 End: 09-21-2022 Patient encounter procedure Lisa Porras [facility] Start: 09-15-2022 End: 09-16-2022 ambulatory BEAUTY COUNSELOR AGUSTO AICHHOLZ Facility:[facility] Start: 09-13-2022 End: 09-13-2022 Patient encounter procedure HEIDY ARNOLD [facility] [place] Start: 09-08-2022 End: 09-09-2022 ambulatory BEAUTY COUNSELOR AGUSTO AICHHOLZ Facility:[facility] Start: 09-02-2022 End: 09-03-2022 ambulatory PETER D HIGHLANDER Facility:[facility] Start: 08-26-2022 End: 08-27-2022 [facility] Start: 08-09-2022 End: 08-10-2022 [facility] Start: 08-05-2022 End: 08-06-2022 ambulatory [facility] Start: 08-04-2022 End: 08-05-2022 ambulatory PETER D HIGHLANDER Facility:[facility] Start: 08-03-2022 End: 08-04-2022 ambulatory BEAUTY COUNSELOR AGUSTO AICHHOLZ Facility:[facility] Start: 08-02-2022 End: 08-03-2022 ambulatory BEAUTY COUNSELOR AGUSTO AICHHOLZ Facility:[facility] Start: 08-01-2022 End: 08-02-2022 ambulatory BEAUTY COUNSELOR AGUSTO AICHHOLZ Facility:[facility] Start: 07-19-2022 End: 07-20-2022 ambulatory BEAUTY COUNSELOR AGUSTO AICHHOLZ Facility:[facility] Start: 07-08-2022 End: 07-09-2022 ambulatory BEAUTY COUNSELOR AGUSTO AICHHOLZ Facility:[facility] Start: 07-06-2022 End: 07-07-2022 ambulatory BEAUTY COUNSELOR AGUSTO AICHHOLZ Facility:[facility] Start: 07-05-2022 End: 07-06-2022 ambulatory PETER D HIGHLANDER Facility:[facility] Start: 06-28-2022 End: 06-29-2022 ambulatory [facility] Start: 06-24-2022 End: 06-25-2022 ambulatory [facility] Facility:[facility] Start: 06-11-2022 End: 06-16-2022 Evaluation and [...] Comment: Speci men Type: BLOOD SPECIMENOrdering Facility: [facility] Address: [address] [place] [address] Performed By: #### T [id number] ####[facility] [id number] [place] [address] [place] Start: 05-22-2023 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 Lisa Porras Start: 06-16-2022 Microscopic examinat ion of blood, culture KIARA OLMSTEAD Comment on above: Performed By: #### B LDCX1 ####[facility] [id number] [place] [address]DrIrina Ricardo Aj Start: 06-13-2022 Detachment at Left F oot, Partial 1st Ray, Open Approach KIARA OLMSTEAD Start: 06-13-2022 Microscopic examinat ion of blood, culture KIARA OLMSTEAD Comment on above: Performed By: #### B LDCX1 ####[facility] [address] [place], [place] [address]EyIrina Rocha Start: 06-11-2022 Detachment at Left 1 [...] 04-28-2026 Screening for malignant neoplasm of colon [facility] Start: 01-31-2025 Creatinine measurement Serum Creatinine [facility] Start: 10-13-2024 Tobacco Screening Tobacco Screening [facility] Start: 09-29-2024 Tobacco Screening Tobacco Screening [facility] Start: 09-03-2024 Complete blood count Hemoglobin/Hematocrit [facility] Start: 09-03-2024 Creatinine measurement Serum Creatinine [facility] Start: 08-09-2024 Adult BMI Screening Adult BMI Screening [facility] Start: 08-09-2024 Tobacco Screening Tobacco Screening [facility] Start: 06-23-2024 Hemoglobin/Hematocrit Hemoglobin/Hematocrit [facility] Start: 06-23-2024 Serum Creatinine Serum Creatinine [facility] Start: 06-06-2024 Hemoglobin/Hematocrit Hemoglobin/Hematocrit [facility] Start: 06-06-2024 Serum Creatinine Serum Creatinine [facility] Start: 05-01-2024 End: 05-01-2024 Patient encounter procedure 05/01/2024 10:00 AM EDT Office Visit Urology [address] [address] Mirna Sunshine MD [address] [place], [place] [id number] discuss bladder augment per Dr. Nolen Urology Comment on above: discuss bladder augment per Dr. Nolen Start: 04-21-2024 Influenza vaccination [facility] Start: 04-09-2024 End: 04-09-2024 Follow-up encounter 04/09/2024 9:30 AM EDT [facility] [id number] [place] [id number] Carmenza Nolen MD [address] [place] [address] 1 week follow up per dr. nolen Urology Comment on above: 1 week follow up per dr. nolen Start: 04-04-2024 Hepatitis B screening Urine Albumin:Creatinine Ratio [facility] Start: 03-29-2024 End: 03-29-2024 Nursing evaluation of patient and report 03/29/2024 3:00 PM EDT Nurse Visit Urology [address] [address] [facility] [address] [place] [id number] [R33.9] Retention of urine Urology Comment on above: [R33.9] Retention of urine Start: 03-26-2024 End: 03-26-2024 Patient encounter procedure 03/26/2024 11:00 AM EDT Office Visit Urology [address] [place] [address] Carmenza Nolen MD [address] [place] [address] Ballard Urology Comment on above: Follow up per Dr. 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 encounter procedure GEAR NICKER [facility]OL [facility] Comment on above: Continuous leakage of Urine Start: 01-22-2024 DIABETES SCREEN DIABETES SCREEN [facility] Start: 01-19-2024 End: 04-19-2024 CREATININE BLD CREATININE BLD Lab Routine Other hydronephrosis Expected: 01/19/2024 (Approximate), Expires: 04/19/2024 [facility] Comment on above: Expected: 01/19/2024 (Approximate), Expi res: 04/19/2024 Start: 01-19-2024 End: 02-10-2025 CT Kidney WO and W contrast IV CT UROGRAM WO/W IVCON Radiology Routine Other hydronephrosis Expected: 01/19/2024 (Approximate), Expires: 02/10/2025 [facility] Work Phone: Comment on above: Expected: 01/19/2024 (Approximate), Expi res: 02/10/2025 Start: 11-22-2023 End: 11-22-2023 Patient encounter procedure 11/22/2023 11:15 AM EDT Office Visit [facility] [address] [place] [id number] Sweta Li, PA-C [address], [address] [place] [id number] [facility] Start: 10-25-2023 End: 10-25-2023 Patient encounter procedure 10/25/2023 12:45 PM EST Office Visit [facility] [address] [place], [place] [id number] Sweta Li, PA-C [address] [place], [place] [id number] [facility] Start: 10-13-2023 End: 10-13-2023 Njx anes stellate ganglion crv sympathetic INJECTION BLOCK NERVE STELLATE GANGLION NECK Complex regional pain syndrome type 1 of right upper extremity 10/13/2023 12:44 PM EST [facility] Start: 10-13-2023 End: 10-13-2023 Patient encounter procedure 10/13/2023 9:55 AM EST Appointment [facility] [address] [place] [id number] Zackery Pedro MD [address] [place] [address] [facility] - [facility]iology Start: 10-05-2023 End: 01-04-2024 Basic metabolic 2000 panel - Serum or Plasma BASIC METABOLIC PNL Lab Routine Kidney cyst, acquired Expected: 10/05/2023 (Approximate), Expires: 01/04/2024 [facility] Work Phone: Comment on above: Expected: 10/05/2023 (Approximate), Expi res: 01/04/2024 Start: 10-05-2023 End: 08-03-2024 US KIDNEY/BLADDER US KIDNEY/BLADDER Radiology Routine Kidney cyst, acquired Expected: 10/05/2023 (Approximate), Expires: 08/03/2024 [facility] Work Phone: Comment on above: Expected: 10/05/2023 (Approximate), Expi res: 08/03/2024 Start: 09-06-2023 Hemoglobin A1c measurement HbA1C [facility] Start: 09-06-2023 Hemoglobin A1c/Hemoglobin.total in Blood HbA1C [facility] Start: 08-21-2023 Advance Directive Discussion Advance Directive Discussion [facility] Start: 08-21-2023 Behavioral Health Screening Behavioral Health Screening [facility] Start: 08-21-2023 Depression Assessment Depression Assessment [facility] Start: 2023 Advance Directive Discussion Advance Directive Discussion [facility] Start: 2023 Bone Density Screening Bone Density Screening [facility] Start: 2023 Fall Risk Screening Fall Risk Screening [facility] Start: 2023 Screening for osteoporosis Bone Density Screening [facility] Start: 04-21-2023 Covid-19 Vaccine () Covid-19 Vaccine () [facility] Start: 04-21-2023 Covid-19 Vaccine ( season) Covid-19 Vaccine ( season) [facility] Start: 04-21-2023 Influenza vaccination [facility] Start: 08-21-2022 Depression Assessment Depression Assessment [facility] Start: 04-21-2021 Influenza vaccination INFLUENZA ([facility] Ended) [facility] Start: 2018 Hepatitis B Vaccine (1 of 3 - Risk 3-dose series) Hepatitis B Vaccine (1 of 3 - Risk 3-dose series) [facility] Start: 2018 RSV Vaccine (1 - 1-dose 60+ series) RSV Vaccine (1 - 1-dose 60+ series) [facility] Start: 2008 Administration of varicella zoster vaccine Zoster (Shingles) Vaccine (1 of 2) [facility] Start: 2008 Screening for malignant neoplasm of colon [facility] Start: 2008 SHINGRIX VACCINE (1 of 2) SHINGRIX VACCINE (1 of 2) [facility] Start: 2003 Cologuard (FIT-DNA) Cologuard (FIT-DNA) [facility] Start: 2003 Colonoscopy Colonoscopy [facility] Start: 2003 Colorectal Cancer Screening Colorectal Cancer Screening [facility] Start: [address] Colonography [facility] Start: 2003 Fecal Occult Blood Fecal Occult Blood [facility] Start: 2003 LIPID SCREEN LIPID SCREEN [facility] Start: 2003 Screening for malignant neoplasm of colon [facility] Start: 2003 Sigmoidoscopy Sigmoidoscopy [facility] Start: 1998 Mammography [facility] Start: 1998 Screening for malignant neoplasm of breast Mammogram Screening [facility] Start: 1988 HPV TESTING HPV TESTING [facility] Start: 1979 PAP TESTING PAP TESTING [facility] Start: 1977 DTaP,Tdap and Td Vaccines (1 - Tdap) DTaP,Tdap and Td Vaccines (1 - Tdap) [facility] Start: 1977 Urine microalbumin profile [facility] Start: 1976 Annual PCP Team Chronic Disease Visit Annual PCP Team Chronic Disease Visit [facility] Start: 1976 Anxiety Screening Anxiety Screening [facility] Start: 1976 BP Controlled (<130/80) BP Controlled (<130/80) [facility] Start: 1976 Depression Screening Depression Screening [facility] Start: 1976 Diabetic foot examination Diabetic Foot Exam [facility] Start: 1976 Hepatitis B surface antibody level LDL Cholesterol [facility] Start: 1976 HEPATITIS C SCREENING HEPATITIS C SCREENING [facility] Start: 1976 Hepatitis C screening Hepatitis C Screening [facility] Start: 1976 HIV SCREENING HIV SCREENING [facility] Start: 1976 HIV screening HIV Screening [facility] Start: 1976 Spirometry Spirometry [facility] Start: 1970 Adult depression screening assessment DEPRESSION SCREENING [facility] Start: 1970 COVID-19 VACCINE (1) COVID-19 VACCINE (1) [facility] Start: 1968 3 comp foot exam completed Diabetic Foot Exam [facility] Start: 1968 Diabetic foot examination Diabetic Foot Exam [facility] Start: 1968 Glaucoma screening Dilated Retinal Exam [facility] Start: 1968 Hepatitis B screening Urine Albumin:Creatinine Ratio [facility] Start: 1968 Hepatitis C antibody, confirmatory test Dilated Retinal Exam [facility] Start: 1964 Pneumococcal Vaccine: 65+ (1 - PCV) Pneumococcal Vaccine: 65+ (1 - PCV) [facility] Start: 1964 Pneumococcal Vaccine: 65+ (1 of 2 - PCV) Pneumococcal Vaccine: 65+ (1 of 2 - PCV) [facility] Start: 1958 Glaucoma screening Diabetic Ophthalmology Exam [facility] Start: 1958 Urine screening for protein Urine Microalbumin [facility] FLUROURODYNAMICS WITH EMG FLUROU RODYNAMICS WITH EMG Procedures Routine Retention of urine BURKE (stress urinary incontinence, female) Ordered: 03/26/2024 [facility] Work Phone: Comment on above: Ordered: 03/26/2024 Njx anes stellate ganglion crv sympathetic INJECTION BLOCK NERVE STELLATE GANGLION NECK Complex regional pain syndrome type 1 of right upper extremity [facility] Njx anes stellate ganglion crv sympathetic INJECTION BLOCK NERVE STELLATE GANGLION NECK Complex regional pain syndrome type 1 of right upper extremity [facility] Immunizations Immunization Date Immunization Notes Care Provider Lukas pacheco 04-02-2021 SARS-CoV-2 (COVID-19 ) mRNA-1273 vaccine HEIDY ARNOLD [facility] 12-07-2020 SARS-CoV-2 (COVID-19 ) mRNA-1273 vaccine HEIDY ARNOLD [facility] 06-03-2016 influenza virus vaccine, unspecified formulation HEIDY ARNOLD [facility] 06-03-2016 influenza, seasonal, injectable, preservative free Drew Esqueda Research Coordinator [facility] Payers Date Payer Category Payer Private Health Insurance [id number] 2023 Self-pay 2022 Medicare [id number] 2022 Medicare [id number] 2006 Medicare MEDICARE MEDICAR E A [id number] 2006-Present [place] Medicare [id number] 2003 Unknown [id number] 1959 Medicare [id number] 2.16.840.1.449819.19 1959 Unknown [id number] 1959 Unknown [id number] 1958 Unknown [id number] 2.16.840.1.769144.3.579.2 .593 1958 Unknown [id number] 2.16.840.1.670379.3.579.2 .593 1958 Unknown [id number] 2.16.840.1.522368.3.579.2 .593 1958 Unknown [id number] 2.16.840.1.334346.3.579.2 .593 1958 Unknown [id number] 2.16.840.1.809793.3.579.2 .593 1958 Unknown [id number] 2.16.840.1.309131.3.579.2 .593 1958 Unknown [id number] 2.16.840.1.560849.3.579.2 .593 1958 Unknown [id number] 2.16.840.1.895289.3.579.2 .593 1958 Unknown [id number] 2.16.840.1.814282.3.579.2 .593 1958 Unknown [id number] 2.16.840.1.914868.3.579.2 .593 1958 Unknown [id number] 2.16.840.1.014505.3.579.2 .593 1958 Unknown [id number] 2.16.840.1.401007.3.579.2 .593 1958 Unknown [id number] 2.16.840.1.920691.3.579.2 .593 1958 Unknown [id number] 2.16.840.1.225862.3.579.2 .593 1958 Unknown [id number] 2.16.840.1.584111.3.579.2 .593 1958 Unknown [id number] 2.16.840.1.319336.3.579.2 .593 1958 Unknown [id number] 2.16.840.1.720152.3.579.2 .593 1958 Unknown [id number] 2.16.840.1.451145.3.579.2 .593 1958 Unknown [id number] 2.16.840.1.842602.3.579.2 .593 1958 Unknown [id number] 2.16.840.1.426875.3.579.2 .593 1958 Unknown [id number] 2.16.840.1.320231.3.579.2 .593 1958 Unknown [id number] 2.16.840.1.186511.3.579.2 .593 1958 Unknown [id number] 2.16.840.1.004173.3.579.2 .593 1958 Unknown [id number] 2.16.840.1.038761.3.579.2 .593 1958 Unknown [id number] 2.16.840.1.928985.3.579.2 .593 1958 Unknown [id number] 2.16.840.1.477371.3.579.2 .593 1958 Unknown [id number] 2.16.840.1.107418.3.579.2 .593 1958 Unknown [id number] 2.16.840.1.662003.3.579.2 .593 1958 Unknown [id number] 2.16.840.1.597630.3.579.2 .593 1958 Unknown [id number] 2.16.840.1.125884.3.579.2 .593 1958 Unknown [id number] 2.16.840.1.701676.3.579.2 .593 1958 Unknown [id number] 2.16.840.1.082943.3.579.2 .727 1958 Unknown [id number] 2.16.840.1.072794.3.579.2 .727 1958 Unknown [id number] 2.16.840.1.790264.3.579.2 .72 1958 Unknown [id number] 2.16.840.1.375839.3.579.2 .1958 Unknown [id number] 2.16.840.1.652455.3.579.2 .1958 Unknown [id number] 2.16.840.1.098146.3.579.2 .1958 Unknown [id number] 2.16.840.1.985309.3.579.2 .1958 Unknown [id number] 2.16.840.1.205525.3.579.2 .1958 Unknown [id number] 2.16.840.1.667857.3.579.2 .1958 Unknown [id number] 2.16.840.1.349197.3.579.2 .1958 Unknown [id number] 2.16.840.1.794412.3.579.2 .1958 Unknown [id number] 2.16.840.1.031163.3.579.2 .1958 Unknown [id number] 2.16.840.1.625596.3.579.2 .1958 Unknown [id number] 2.16.840.1.786526.3.579.2 .1958 Unknown [id number] 2.16.840.1.802631.3.579.2 .1958 Unknown [id number] 2.16.840.1.020170.3.579.2 .1258 1958 Unknown [id number] 2.16.840.1.751637.3.579.2 .1258 1958 Unknown [id number] 2.16.840.1.265485.3.579.2 .1259 1958 Unknown [id number] 2.16.840.1.003045.3.579.2 .1258 1958 Unknown [id number] 2.16.840.1.866900.3.579.2 .9 1958 Unknown [id number] 2.16.840.1.804529.3.579.2 .1285 1958 Unknown [id number] 2.16.840.1.371589.3.579.2 .1285 1958 Unknown [id number] 2.16.840.1.497615.3.579.2 .1285 1958 Unknown [id number] 2.16.840.1.132534.3.579.2 .1285 1958 Unknown [id number] 2.16.840.1.176383.3.579.2 .1285 1958 Unknown [id number] 2.16.840.1.658526.3.579.2 .1285 1958 Unknown [id number] 2.16.840.1.153215.3.579.2 .1285 1958 Unknown [id number] 2.16.840.1.975650.3.579.2 .1285 1958 Unknown [id number] 2.16.840.1.701463.3.579.2 .1285 1958 Unknown [id number] 2.16.840.1.701586.3.579.2 .1285 1958 Unknown [id number] 2.16.840.1.704806.3.579.2 .1285 1958 Unknown [id number] 2.16.840.1.321387.3.579.2 .1285 1958 Unknown [id number] 2.16.840.1.446361.3.579.2 .1286 1958 Unknown [id number] 2.16.840.1.477120.3.579.2 .1286 1958 Unknown [id number] 2.16.840.1.857791.3.579.2 .1286 Medicare [id number] Unknown [facility] [id number] Unknown [id number] 2.16.840.1.272829.3.579.2 .531 Social History Date Type Detail Facility Start: 01-17-2021 End: 05-17-2023 Tobacco smoking status NHIS Never smoker [facility] Start: 01-17-2021 End: 05-17-2023 Tobacco use and exposure Never used [facility] Start: 01-17-2021 End: 04-09-2024 Alcohol intake Current drinker of alcohol (finding) [facility] Start: 01-17-2021 History SDOH Alcohol Frequency 1 [facility] Start: 01-17-2021 [facility] Start: 1960 Sex Assigned At Not [facility] file [facility] Exposure to SARS-CoV -2 (event) Not sure [facility] Tobacco smoking status Never [facility] Start: 05-17-2023 End: 06-06-2023 Sex Assigned At Female [facility] Start: 05-17-2023 End: 06-06-2023 History of Social function [facility] Start: 06-06-2023 Alcohol Comment rarely--holida y or special occ [facility] Start: 08-09-2023 End: 10-13-2023 Alcohol intake Current non-drinker of alcohol (finding) [facility] Are you now , , , , never or living with a partner? [facility] How hard is it for y ou to pay for the very basics like food, housing, medical care, and heating Not very hard [facility] (I/We) worried liss er (my/our) food would run out before (I/we) got money to buy more. DK or Refused [facility] Start: 1960 Sex Assigned At Female F [facility] Functional Status Date Assessment Result Facility 10-25-2023 Functional Status N/A [facility] 05-22-2023 Functional Status N/A [facility] 05-11-2023 Functional Status [facility] 02-22-2023 Functional Status N/A [facility] 09-21-2022 Functional Status N/A [facility] 09-13-2022 Functional Status N/A [facility] Clinical Notes 01-17-2021 to 04-15-2024 Chioma Durán - 04/15/2024 7:28 AM Carmenza Maradiaga MD - 04/09/2024 9:33 AM Chioma Clements - 04/08/2024 9:38 AM Lorie Blanchard RN - 03/29/2024 1:21 PM EDTPatient Instructions Note Date & Type Note Facility 04-15-2024 Note HNO ID: [id number] Author: ?, ?, ? Service: ? Author Type: ? Type: Progress Notes Filed: 04/15/2024 07:29 Note Text: Incidental Lung Nodule Enrollment Outreach attempt: 3rd Attempt Outreach status: Complete Enrolled in Lung Nodule program: No Declined reason: Other Lung Nodule Program Location: [place] Two letter attempts, no response. Discharge letter sent. [facility] 04-15-2024 History of Presen t illness Narrative Incidental Lung Nodule Enrollment Outreach attempt: 3rd Attempt Outreach status: Complete Enrolled in Lung Nodule program: No Declined reason: Other Lung Nodule Program Location: [place] Two letter attempts, no response. Discharge letter sent. documented in this encounter [facility] 04-15-2024 Note Patient Outreach (PU LMMN) LIAMAISLINN PAEZ ([id number]) 1960 F Date Time Provider Department 04/15/24 CHIOMA DURÁN During your visit today, we recorded the following information about you: Chioma Durán 04/15/2024 7:29 AM Signed Incidental Lung Nodule Enrollment Outreach attempt: 3rd Attempt Outreach status: Complete Enrolled in Lung Nodule program: No Declined reason: Other Lung Nodule Program Location: [place] Two letter attempts, no response. Discharge letter [...] [N39.*08/31/2023 09/04/2023 Letter Text Encounter Status:Closed by DURÁNCHIOMA on 04/15/24 [facility] 04-09-2024 Note HNO ID: [id number] Author: CARMENZA NOLEN MD Service: ? Author [...] bladder with poor compliance and BURKE at DETENTION of 100ml. Bladder remodeling without VUR. Valsalva [...] visit. Either the patient or their legal strategic partnership representative has been informed of the risks and benefits of -- and alternatives to -- treatment through a remote evaluation and consents to proceed with the evaluation remotely. [facility] 04-09-2024 History of Presen t illness Narrative [...] bladder with poor compliance and BURKE at DETENTION of 100ml. Bladder remodeling without VUR. Valsalva [...] visit. Either the patient or their legal strategic partnership representative has been informed of the risks and benefits of -- and alternatives to -- treatment through a remote evaluation and consents to proceed with the evaluation remotely. documented in this encounter [facility] 04-08-2024 Note HNO ID: [id number] Author: ?, ?, ? Service: ? Author Type: ? Type: Progress Notes Filed: 04/08/2024 09:39 Note Text: Incidental Lung Nodule Enrollment Outreach attempt: 2nd Attempt Outreach status: Complete Enrolled in Lung Nodule program: Referred Lung Nodule outreach: Needs outreach Lung Nodule Program Location: [place] Two letter attempts [facility] 04-08-2024 History of Presen t illness Narrative Incidental Lung Nodule Enrollment Outreach attempt: 2nd Attempt Outreach status: Complete Enrolled in Lung Nodule program: Referred Lung Nodule outreach: Needs outreach Lung Nodule Program Location: [facility] letter attempts documented in this encounter [facility] 04-08-2024 Note Patient Outreach (PU LMMN) AISLINN WHEELER ([id number]) 1960 F Date Time Provider Department 04/08/24 CHIOMA DURÁN During your visit today, we recorded the following information about you: Chioma Durán 04/08/2024 9:39 AM Signed Incidental Lung Nodule Enrollment Outreach attempt: 2nd Attempt Outreach status: Complete Enrolled in Lung Nodule program: Referred Lung Nodule outreach: Needs outreach Lung Nodule Program Location: [place] Two letter attempts Allergies As of Date: 04/08/2024 Noted Allergy Reaction LATEX 02/05/2020 2 - Rash Comments: Added based on information entered during case entry, please review and add reactions, type, and severity as needed Date Reviewed: 03/29/2024 Reviewed by: Lorie Burrows, RYE - Fully Assessed Prescriptions as of 04/08/2024 [...] Encounter Status:Closed by CHIOMA DURÁN on 04/08/24 [facility] 04-02-2024 Note HNO ID: [id number] Author: CARMENZA NOLEN MD Service: ? Author Type: Physician Type: Progress Notes Filed: 04/02/2024 11:52 Note Text: [facility] [...] Small capacity bladder with poor compliance and BRUKE at DETENTION of 100ml. Bladder remodeling without VUR. Valsalva voiding with atonic detrusor. Will refer to consider bladder augmentation. Carmenza Nolen MD Voiding cystourethrogram- Voiding Cystourethrogram Patient Name - Aislinn Wheeler Date - April 02, 2024 Imaging exam - VCUG Number of images saved - 11 Patient position - Sitting Radiologic Findings: A lead injection mold technician radiograph was obtained. The bony and soft tissue structures are within normal. 147 ccs contrast were used to fill the bladder. The bladder outline is irregular/trabeculated and abnormal shaped appearing. There is no ureteral reflux. During the voiding phase there is abnormal bladder neck opening and urethra is not visualized. Bladder emptying is not visualized Read by - Carmenza Nolen MD [facility] 03-29-2024 Nurse Note [facility] URODYNAMIC [...] allergy: No Females- Is patient : No Supply Chain Design Manager offered:Patient declines B/O UA: Yes, Negative for [...] Pt states an understanding of instructions given. [facility] 03-29-2024 Nurse Note [facility] URODYNAMIC [...] allergy: No Females- Is patient : No Supply Chain Design Manager offered:Patient declines B/O UA: Yes, Negative for [...] of instructions given. documented in this encounter [facility] 03-27-2024 Note HNO ID: [id number] Author: NURIA READ APRN.BEAUTY COUNSELOR Service: ? Author Type: Nurse Practitioner Type: Progress Notes Filed: 03/27/2024 14:36 Note Text: Incidental Lung Nodule Enrollment Outreach attempt: 1st Attempt Outreach status: Complete Enrolled in Lung Nodule program: Referred Lung Nodule outreach: Needs outreach Lung Nodule Program Location: [facility] 03-27-2024 History of Presen t illness Narrative Incidental Lung Nodule Enrollment Outreach attempt: 1st Attempt Outreach status: Complete Enrolled in Lung Nodule program: Referred Lung Nodule outreach: Needs outreach Lung Nodule Program Location: [facility] documented in this encounter [facility] 03-27-2024 Note Patient Outreach (PM M211) AISLINN WHEELER ([id number]) 1960 F Date Time Provider Department 03/27/24 NURIA READ [id number] During your visit today, we recorded the following information about you: Nuria Read APRN.CNP 03/27/2024 2:36 PM Signed Incidental Lung Nodule Enrollment Outreach attempt: 1st Attempt Outreach status: Complete Enrolled in Lung Nodule program: Referred Lung Nodule outreach: Needs outreach Lung Nodule Program Location: [facility] N[facility] Allergies As of Date: 03/27/2024 [...] Encounter Status:Closed by NURIA READ on 03/27/24 [facility] 03-26-2024 Instructions Carmenza Nolen MD - 03/26/2024 11:31 AM EDT Images from the original note were not included. INFORMATION ON URODYNAMICS (BLADDER FUNCTION TEST) Getting Ready for the Test You do not have to fast before the test. Begin to drink 24-32 ounces of fluid (water, cranberry juice, milk, herbal tea) 90 minutes prior to the test so you arrive at the [facility] with the urge to empty your bladder. [...] your bladder when you arrive at the [facility]. Speak with a nurse if you feel you must empty your bladder. If you are taking antibiotics for a urinary tract infection (UTI) or bladder infection, notify your physician's office immediately. We may reschedule your bladder test. Bring a list of all prescribed and motf-owc-wkeqzhl medications you are taking. If you should need assistance due to a language barrier or medical needs/condition, please notify the blood bank technician when making your appointment and one will be provided for you ([phone]). If you are taking overactive bladder medications [...] test is finished. documented in this encounter [facility] 03-26-2024 Note HNO ID: [id number] Author: CARMENZA NOLEN MD Service: ? Author Type: Physician Type: Progress Notes Filed: 03/26/2024 11:54 Note Text: [facility] PELVIC [...] her bladder. Had bladder botox injections at [facility] about 3 mo ago with no [...] Assessed 03/26/2024 PHYSICAL EXAM: Patient declined a brick washer General: No acute distress, well appearing : [...] and concerns were addressed. Carmenza Nolen MD [facility] 03-26-2024 History of Presen t illness Narrative [facility] [...] her bladder. Had bladder botox injections at [facility] about 3 mo ago with no [...] Assessed 03/26/2024 PHYSICAL EXAM: Patient declined a brick washer General: No acute distress, well appearing : [...] Via bladder scan. documented in this encounter [facility] 03-26-2024 Note HNO ID: [id number] Author: MARIA TERESA JOHNSON MA Service: ? Author Type: Soil Checker Type: Progress Notes Filed: 03/26/2024 11:54 Note Text: Pt voided upon arrival. PVR = 205 ml Via bladder scan. Pt was doing ISC, but was told she could stop. Pt instructed to give a urine specimen. 2ND Repeat PVR PVR = 135 ml Via bladder scan. [facility] 02-26-2024 Telephone encounter Note Pt LVM asking for her CT scan results. Noted in pt chart was an unread message from regarding the most recent CT scan. LVM for pt and let her know about MyChart message and provided number if pt has any further questions. [facility] 02-26-2024 Miscellaneous Notes Pt LVM asking for her CT scan results. Noted in pt chart was an unread message from regarding the most recent CT scan. LVM for pt and let her know about MyChart message and provided number if pt has any further questions. documented in this encounter [facility] 02-12-2024 Telephone encounter Note Patient LVM requesting results from 02/01/24 CT Urogram. Will update medical team [facility] 02-12-2024 Miscellaneous Notes Patient LVM requesting results from 02/01/24 CT Urogram. Will update medical team documented in this encounter [facility] 02-01-2024 Note HNO ID: [id number] Author: PRERNA CORRAL RT(R) Service: ? Author [...] PATIENT PRESENTS WITH AN IMPLANTABLE OR ATTACHED MERCHANT PATROLLER: No RADIOLOGY DEPARTMENT: CT; Exam(s) Completed: Urogram PERIPHERAL IV DATA: Site assessment: Clean,Dry and Intact, Site disposition Discontinued SIGNED BY: RT Michael(R) February 01, 2024 2:50 PM [facility] 02-01-2024 Note HNO ID: [id number] Author: HEIDY LINDA RN Service: Nursing Author [...] DATE: February 01, 2024 TIME: 2:50 PM [facility] 01-12-2024 Note HNO ID: [id number] Author: SANJANA CALLAWAY MA Service: ? Author Type: Soil Checker Type: Progress Notes Filed: 01/12/2024 14:43 Note Text: Post Void Residual done on patient with 211 cc residual volume remaining. notified. Sanjana Callaway MA [facility] 01-12-2024 History of Presen t illness Narrative Post Void Residual done on patient with 211 cc residual volume remaining. notified. Sanjana Callaway MA [facility] FOLLOW-UP PATIENT HISTORY AND PHYSICAL [...] urogram Will refer to Dr. Tamanna Ruiz APRN.BEAUTY COUNSELOR Attending Note I have personally performed a [...] the presence of Dr. Ballard Electronically signed, Ivania Vidal Scribe I agree with the Chief Complaint, ROS, and Past Histories independently gathered by the clinical shipping support clerk and the remaining scribed note accurately describes my personal service to the patient. Dr. Taurus Ballard MD documented in this encounter [facility] 01-12-2024 Note HNO ID: [id number] Author: TAURUS BALLARD MD Service: ? Author Type: Physician Type: Progress Notes Filed: 01/12/2024 14:43 Note Text: [facility] [place] [facility]IENT HISTORY AND PHYSICAL EXAM PATIENT [...] urogram Will refer to Dr. Tamanna Ruiz APRN.BEAUTY COUNSELOR Attending Note I have personally performed a [...] MD Date: 01/12/2024 (more content not included)... [facility] 11-06-2023 Miscellaneous Notes Last Office Visit: 08/09/2024 Next Office Visit: 11/22/2023 Last Urine Drug Screen: Lab Results Component Value Date BENZOSCRN Negative 08/09/2023 OARRS appropriate documented in this encounter [facility] 11-06-2023 Telephone encounter Note Last Office Visit: 08/09/2024 Next Office Visit: 11/22/2023 Last Urine Drug Screen: Lab Results Component Value Date BENZOSCRN Negative 08/09/2023 OARRS appropriate [facility] 10-25-2023 Hospital Discharg e instructions Patient Education [...] including vitamins, herbs, eye drops, creams, and nedj-dyw-exysuwr medicines. Any problems you or family members [...] provider tells you to take them. Taking vbns-wfw-xwirfpn medicines, vitamins, herbs, and supplements. General instructions [...] Follow these instructions at home: Medicines Take udpx-dfy-rbkofku and prescription medicines only as told by [...] provider. Document Revised: 02/11/2022 Document Reviewed: 02/11/2022 [employer] Patient Education 2022 [employer]. Follow Up Care 09/26/2023 08:43:34 With:CATALINA VIRGEN, HEIDY Rodriguez, URL Address: [address] [facility] [address] When: Unknown [facility] Ashlie 10-10-2023 Miscellaneous Notes Last OV: 08/12/23 Next OV: proc 10/13/23 OARRS appropriate: yes Last UDS: 08/12/23 [facility] documented [facility] this encounter [facility] 10-10-2023 Telephone encounter Note Last OV: 08/12/23 Next OV: proc 10/13/23 OARRS appropriate: yes Last UDS: 08/12/23 [facility] Miscellaneous Notes Summary: [facility] IRB# [id number] IRB# [id number]: Vascular events in patients undergoing same-day nonCardiac surgery - CHRISTOPHER PI: Mary Rojas MD, LETY, FASA. Outcomes Research Department. Anesthesia [place]. [facility]. Aislinn Pulido Liam was unavailable at the listed phone number. We will attempt to contact the patient through Exitround message. Drew Esqueda, Research Coordinator Research Coordinator documented in this encounter [facility] 09-26-2023 Miscellaneous Notes Summary: CHRISTOPHER IRB# [id number] IRB# [id number]: Vascular events in [facility] PI: Mary Rojas MD, LETY, FASA. Outcomes Research Department. Anesthesia [place]. [facility]. Aislinn Wheeler was unavailable at the listed phone number. We will attempt to contact the patient again at a later date. Drew Esqueda, Research Coordinator Research Coordinator documented in this encounter [facility] 09-07-2023 Miscellaneous Notes Last OV: 08/09/2023 Next OV: --- OARRS appropriate: yes Last UDS: 08/09/2023 [facility] Patient left phone message requesting refill on [place] and Lyrica. Lyrica prescription signed 08/11/2023 has 1 refill. Per OARRS patient last filled Lyrica 08/11/2023. [place] prescription pended for review and signature. Patient's fill dated adjusted from 09/14/23 to 09/17/23 due to recent 3 day hospitalization. documented in this encounter [facility] 09-07-2023 Telephone encounter Note Last OV: 08/09/2023 Next OV: --- OARRS appropriate: yes Last UDS: 08/09/2023 [facility] Patient left phone message requesting refill on [place] and Lyrica. Lyrica prescription signed 08/11/2023 has 1 refill. Per OARRS patient last filled Lyrica 08/11/2023. [place] prescription pended for review and signature. [facility] 09-07-2023 Telephone encounter Note Patient's fill dated adjusted from 09/14/23 to 09/17/23 due to recent 3 day hospitalization. [facility] 09-03-2023 Note HNO ID: [id number] Author: KRYSTA SULLIVAN MD Service: Hospital Medicine [...] -- 08/31/23 1115 activity - mobilize patient (dc,nc) VTE Prophylaxis: VTE prophylaxis appropriate SIGNATURE: Krysta Sullivan MD PATIENT NAME: Aislinn Wheeler DATE: September 03, 2023 TIME: 6:31 PM [facility] 09-02-2023 Note HNO ID: [id number] Author: KRYSTA SULLIVAN MD Service: Hospital Medicine [...] -- 08/31/23 1115 activity - mobilize patient (dc,nc) VTE Prophylaxis: VTE prophylaxis appropriate SIGNATURE: Krysta Sullivan MD PATIENT NAME: Aislinn Wheeler DATE: September 02, 2023 TIME: 2:31 PM [facility] 09-02-2023 Note HNO ID: [id number] Author: NOTE, INTERFACE, ? Service: ? Author Type: ? Type: Progress Notes Filed: 09/02/2023 02:20 Note Text: Epic Scheduled Downtime: 09/02/2023 1:00:00 AM to 09/02/2023 2:04:22 AM [facility] 09-01-2023 Note HNO ID: [id number] Author: MIKE LOUIS RN Service: Care Management Author Type: Registered Nurse Type: Care Mgt Progress Note Filed: 09/01/2023 15:30 Note Text: CARE MANAGEMENT WEEKEND PLANNING NOTE NO WEEKEND DISCHARGE Disposition: TBD Anticipated Discharge Date: No weekend DC anticipated Weekend Rheumatologist Pager #: Girish Rogers [phone] ANATOLIY UTI - repeat UA sent - bc pending Waiting on podiatry consult SIGNATURE: Mike Louis RN PATIENT NAME: Aislinn Wheeler DATE: September 01, 2023 TIME: 3:28 PM PAGER/CONTACT #: [phone] [facility] 09-01-2023 Note HNO ID: [id number] Author: ANTHONY BARROW MD Service: Hospital Medicine [...] -- 08/31/23 1115 activity - mobilize patient ([place]) VTE Prophylaxis: VTE prophylaxis appropriate SIGNATURE: Anthony Barrow MD PATIENT NAME: Aislinn Wheeler DATE: September 01, 2023 TIME: 11:36 AM [facility] 08-31-2023 History of Past i llness [...] of this encounter (statuses as of 09/27/2023) [facility]2024 History of Past illness Narrative* Problem Noted Date Diagnosed Date Resolved Date Fever 08/31/2023 09/04/2023 Urinary tract infection without hematuria 08/31/2023 09/04/2023 Acute cystitis without hematuria 01/18/2021 01/21/2021 Pyelonephritis 01/17/2021 01/21/2021 Sepsis 01/17/2021 01/21/2021 Hyponatremia 01/17/2021 01/21/2021 Hyperkalemia 01/17/2021 09/04/2023 ANATOLIY (acute kidney injury) 01/17/2021 Hydronephrosis due to obstruction of ureter 01/17/2021 01/21/2021 documented as of this encounter (statuses as of 09/28/2023) [facility] History of Past illness Narrative* Problem Noted Date Diagnosed Date Resolved Date Fever 08/31/2023 09/04/2023 Urinary tract infection without hematuria 08/31/2023 09/04/2023 Acute cystitis without hematuria 01/18/2021 01/21/2021 Pyelonephritis 01/17/2021 01/21/2021 Sepsis 01/17/2021 01/21/2021 Hyponatremia 01/17/2021 01/21/2021 Hyperkalemia 01/17/2021 09/04/2023 ANATOLIY (acute kidney injury) 01/17/2021 Hydronephrosis due to obstruction of ureter 01/17/2021 01/21/2021 documented as of this encounter (statuses as of 09/28/2023) [facility]01-11-2024 NoteHNO ID: [id number] Author: TIN QUIÑONEZ LSW Service: Care Management Author Type: Load Planner Type: Care Mgt Initial Assessment Filed: 08/31/2023 14:02 Note Text: CARE MANAGEMENT: ASSESSMENT AND DISCHARGE PLAN SERVICE DATE: August 31, 2023 SERVICE TIME: 1:42 PM PCP: Agusto Olmstead Primary Contact: Extended Emergency Contact Information Primary Emergency Contact: LOLA SEARS Mobile Relation: Grandchild Admission Status: Inpatient Insurance Provider: [facility] MEDIC[facility] PPO Discharge Planning requested by: Per Department Practice Potential Transition Plans To Be Determined Advance Directives Current Advance Directive: None Cake Maker Attempted to Assist with AD Completion: Yes Action: Education Provided Current Living Arrangements and Support Lives with: Family members, Children Type of Residence: Private Residence (House) Support: Family members How do you manage to accomplish the following: Independent: Ambulation;Bathe/Shower;Dress;Meals/Meal Prep;Going to the bathroom;Medication Management;Transportation to appointments/community Current Services/Equipment Current Post-Acute Service(s): None Discharge Planning Patient Goal(s): General wellness [place] Explained: [place] Given: No Reason Not Given: [...] with pt at bedside. Pt lives in [facility] with her grandchildren (18, 17, and [...] 31, 2023 TIME: 1:42 PM CONTACT #: [id number] Evaluation note* Encounter Date Diagnosis Assessment Notes Treatment Notes Treatment Clinical Notes Jun, Vitamin B12 deficiency (ICD-10 - E53.8) [facility] 11-03-2023 NoteHNO ID: [id number] Author: Lakisha Kaye Service: ? Author Type: ? Type: Plan of Care Filed: 06/26/2023 9:53 AM Note Text: PHARMACY BEDSIDE DELIVERY SERVICE Patient Name: Aislinn Wheeler The marked outpatient medications were Filled at: [facility] and delivered to the patient's bedside to [facility] Medication List START taking these medications [...] your Primary Care Provider. Lakisha Kaye PAGER: [phone] June 26, 2023 9:52 [facility]11-03-2023 Miscellaneous Notes* Telephone Encounter - Heidy Garcia RN - 06/23/2023 9:03 AM EDT Patient had left robotic partial nephrectomy by Dr. Ballard on 06/22/2023 Will call for surgical follow up once discharged [facility]23 NoteHNO ID: [id number] Author: Taurus Ballard MD Service: Urology Author Type: Physician Type: Progress Notes Filed: 06/23/2023 1:37 PM Note Text: [facility] UROLOGY PROGRESS NOTE Name: Aislinn Wheeler Bed: [id number] Date: June 23, 2023 After Hours [facility] Service Pager: [phone] ASSESSMENT AND PLAN Aislinn Wheeler is a [...] Jeet De La Fuente MD Urology Resident [facility] Pager [phone] SUBJECTIVE -c/o pain, had a BM, no [...] 0659 06/23/23 0700 - 06/24/23 0659 Shift 0422-4586 8621-1236 7328-1608 24 Hour Total 2728-5635 8501-7506 5638-1115 24 Hour Total INTAKE IV 1600 1600 Volume (mL) (lactated ringers iv infusion) 1000 1000 Volume (mL) (lactated ringers iv infusion) 600 600 Shift Total 1600 1600 OUTPUT Urine 300 411 797 9466 OR Urine Output 300 300 Output ( Indwelling Urinary Catheter 06/22/23 1130 Chaves 16 Fr) 355 542 2750 Tubes 20 40 60 Drain/Tube Output (Drain/Tube 06/22/23 1333 Lex Vega Right Lower Quadrant Abdomen Drain #1) 20 40 60 # of BMs Number of BMs 1 x 1 x Blood 50 50 Estimated Blood loss 50 50 Shift Total 350 085 399 6026 Weight (kg) 59 59 59 59 59 [...] We will call with pathology. Taurus Ballard [facility]11-02-2023 NoteHNO ID: [id number] Author: Linda Nicholson RN Service: Nursing Author Type: Registered Nurse Type: Nursing Progress Note Filed: 06/22/2023 2:15 PM Note Text: surgical dressing: surgical glue, [facility]11-02-2023 NoteHNO ID: [id number] Author: Lola Be APRN.QUALITATIVE RESEARCHER Service: ? Author Type: Nurse Production Control Coordinating Clerk Type: Anesthesia Procedure Notes Filed: 06/22/2023 12:24 PM Note Text: ANESTHESIOLOGY PROCEDURE NOTE Airway General Information Procedure Start Time/Medication Administration: 06/22/2023 11:22 AM Patient location during procedure: OR Patient identity confirmed: arm band, care engineer steam and patient Staffing QUALITATIVE RESEARCHER: Lola Be APRN.QUALITATIVE RESEARCHER Performed by: QUALITATIVE RESEARCHER Indications and Patient Condition Indications for airway [...] insertion, baseline dentition intact SIGNATURE: Lola Be APRN.CRNA PATIENT NAME: Aislinn Wheeler DATE: June 22, 2023 TIME: 12:24 PM CSN: [id number] Miscellaneous Notes* Telephone Encounter - Vonnie Wilder RN - 06/15/2023 11:24 AM EDT Attempted to call patient for pre op instructions.mailbox is full and unable to LVM. Will try again. documented in this [facility] Evaluation note* Encounter Date Diagnosis Assessment Notes [...] requested at the time of your visit. 19 Oct, 2023 Dietary counseling and surveillance (ICD-10 - Z71.3) [...] (ICD-10 - Z68.25) May, Other see above [facility] 10-02-2023 Note [id number]:127[facility] 05-22-2023 NoteCystoscopy with Botox injection ? [...] if you have a fever over 100 degrees.[facility] 05-22-2023 Hospital Discharge instructions Patient Education [...] Up Care 05/03/2023 10:48:47 With:Lisa Porras Address: [address] [place] [address] [phone] Business (1) [address], [address] [address] [phone] Business (1) When: Unknown Comments:Office to schedule follow up in 1 month with [facility]09-28-2023 Evaluation note* Encounter Date Diagnosis Assessment [...] 24.0-24.9, adult (ICD-10 - Z68.24) see above [facility] Other 09-28-2023 Miscellaneous Notes* Telephone Encounter - Agusto Faulkner - 05/18/2023 12:57 PM EDT Consult notes sent back to Dr. Lisa Porras , phone [phone]. From Dr. Ballard office. documented in this encounter[facility]09-27-2023 NoteHNO ID: [id number] Author: Taurus Ballard MD Service: ? Author Type: Physician Type: Progress Notes Filed: 05/17/2023 1:35 PM Note Text: [facility] [place] [facility] PATIENT HISTORY AND PHYSICAL EXAM PATIENT [...] 1.92 01/19/[address] scan (outside records) [facility] 09/28/21 IMPRESSION: Since the prior CT scan [...] threatening or minor complicatio (more content not included)...[id number] Hospital Discharge instructions Patient Education 02/22/2023 09:35:15 [...] provider. Document Revised: 12/16/2021 Document Reviewed: 12/16/2021 [employer] Patient Education 2022 [employer]. Follow Up Care 09/13/2022 14:59:43 With:Vern TAVERAS, EMELINA Hernandez, URO Address: When:Within 2 Month(s) Comments:w/ RIVAS [facility] 05-09-2023 Evaluation note* Encounter Date [...] N28.1) Patient follows with urology clinic in [facility] for enlarging left renal cyst. December, [...] her blood pressure persistently more than 150/90. [facility] Other 02-01-2023 Hospital Discharge instructions Patient Education [...] 07/24/2013 Document Revised: 03/27/2019 Document Reviewed: 03/27/2019 [employer] Patient Education 2020 [employer]. Follow Up Care 09/14/2022 14:44:34 With:Vern TAVERAS, EMELINA Hernandez, URO Address: When: Unknown [facility] 01-24-2023 Hospital Discharge instructions Patient Education [...] fried and sweet foods. General instructions Take amne-aes-lpxsesp and prescription medicines only as told by [...] 06/03/2010 Document Revised: 11/28/2019 Document Reviewed: 08/23/2018 [employer] Patient Education 2020 [employer]. Follow Up Care 08/24/2022 11:21:49 With:HEIDY ARNOLD PA-C, URL Address: [address] [place] [address] When: Unknown [facility] Miscellaneous Notes* Telephone Encounter - Barbara Talbot - 01/27/2021 10:30 AM EDT Scheduled 02/15 * Telephone Encounter - Barb Silva MD - 01/27/2021 9:40 AM EDT Please schedule hospital follow up with Guy Overton Deitzer, or Sasha. Virtual ok documented in this encounterReg[facility]06-03-2021 NoteHNO ID: [id number] Author: Griselda Diaz (Pharmaceutical Plant Operator) Service: ? Author Type: ? Type: [...] Generic drug: insulin detemir U-100 Griselda Diaz (Pharmaceutical Plant Operator) PAGER: paris January 21, 2021 4:27 [id number] NoteHNO ID: [id number] Author: ELIZABETH Kothari Service: Care Management Author Type: Load Planner Type: Care Mgt Progress Note Filed: 01/21/2021 1:39 PM Note Text: CARE MANAGEMENT DISCHARGE NOTE SERVICE DATE: 01/21/2021 SERVICE TIME: 1300 LOS: 4 days Admission Date: 01/17/2021 DISCHARGE ARRANGEMENT (list agency and phone number) Discharge Arrangement: Home;Home Senior Living Care: Nursing;PT;OT [facility] ASSESSMENT: Maira Davila to transport home [phone] HANDOFF COMMUNICATION: Handoff to: Other Caregiver;Primary Care Physician Primary Care Physician Name/Phone: Madeline Jordan PA-C Other Caregiver Name/Phone: [facility] TRANSPORTATION ARRANGEMENTS: Transportation Arrangements: Car (Family to transport) ADDITIONAL CONTACT RESOURCES: [facility] not able to accept. [place] provided and sent to first available to accept to her service area. [facility] willing to accept. Pt concerned she does not have [employer] [facility] part B to cover services. I spoke with maira who plans on paying for services out of pocket until pt's insurance becomes active February 18, 2021 Discharge Information Row Name ED to Hosp-Admission (Current) from 01/17/[address] Care Agency [facility] Fax# Care to start after your appointment with internal medicine on 01/25/2021 for additional orders. The agency will be contacting you to set this up [email or web address] [facility] [employer] Equipment Needed Walker was delivered to hospital room prior to discharge [facility] willing to accept pending pt has her initial appointment with internal medicine on 01/25/2021. Both pt and maira Davila were advised. Dr Hansen also provided script for outpt therapy should home care fall through or cost too high for jessicadtr to cover. Lola to call [facility] to discuss further. Walker was delivered to room and prescription was sent to [facility]. Lola to pick pulling machine operator. No other homegoing needs. SIGNATURE: ELIZABETH Kothari PATIENT NAME: Aislinn Wheeler DATE: January 21, 2021 TIME: 1:32 PM PAGER/CONTACT #: [phone] [id number] NoteHNO ID: [id number] Author: Derik Daniel Service: Care Management Author Type: Resource Center Data Integration Analyst Type: Care Mgt Progress Note Filed: 01/21/2021 11:24 AM Note Text: CARE MANAGEMENT PROGRESS NOTE SERVICE DATE: 01/21/2021 SERVICE TIME: 950 LOS: 4 days IMM Follow Up Copy Given: Yes Copy given to:: Patient Method: In Person SIGNATURE: Derikmima Khalilloriepuma PATIENT NAME: Aislinn Wheeler DATE: January 21, 2021 TIME: 11:23 AM PAGER/CONTACT #: [phone] NoteHNO ID: [id number] Author: Ailyn Salas RN Service: Care Management Author Type: Registered Nurse Type: Care Mgt Progress Note Filed: 01/20/2021 3:29 PM Note Text: CARE MANAGEMENT PROGRESS NOTE SERVICE DATE: 01/20/2021 SERVICE TIME: 3:09 PM LOS: 3 days [place] Given: Yes Level of Care Discussed: Home Care Financial Disclosure Provided: No Financial Disclosure Comments: [facility] does not service area Provider [...] sent. Patient does not have a PCP. [facility] can provide a visiting provider [...] 20, 2021 TIME: 3:09 PM PAGER/CONTACT #: [phone] [id number] NoteHNO ID: [id number] Author: Inna Hansen DO Service: Hospital Medicine Author Type: Physician Type: Progress Notes Filed: 01/20/2021 12:37 PM Note Text: DEPARTMENT OF HOSPITAL MEDICINE PROGRESS NOTE SERVICE DATE: 01/20/2021 SERVICE TIME: 10:37 AM Hospital Medicine/Primary Attending: Inna Hansen DO NIGHT AND WEEKEND COVERAGE: DELMY COVERAGE: : [phone], please contact via [employer] Nights: [phone], please page [facility] Hospitalist Night coverage pager [phone] Subjective INTERVAL HPI: nausea and vomiting this [...] Non-Pharmacologic VTE Prophylaxis/Anticoagulants 01/17/212214 pneumatic compression stockings (dc,nc) 01/17/212214 activity - mobilize patient (dc,oh) VTE Prophylaxis: VTE prophylaxis appropriate Disposition: TBD Inna Hansen DO January 20, 2021 10:39 [id number] NoteHNO ID: [id number] Author: Benjamin Bernal MD Service: Urology Author [...] Wendy Bernal MD January 19, 2021 4:12 [facility] [id number] NoteHNO ID: [id number] Author: Diana SernaD Service: Pharmacy Author Type: Pharmacist Type: Plan of Care Filed: 01/19/2021 11:02 AM Note Text: PHARMACY MEDICATION REVIEW Patient Name: Aislinn Wheeler : 1960 The following medications were updated within the BIOMEDICAL SCIENTIST medication list: Medications ADDED to BIOMEDICAL SCIENTIST medication list ? Albuterol HFA (replaced nebs) ? Levemir (replaced Lantus) Medications CHANGED on BIOMEDICAL SCIENTIST medication list ? Lyrica (added instructions) ? Symbicort (added instructions) Medications REMOVED from BIOMEDICAL SCIENTIST medication list ? Diltiazem ? Cymbalta ? [...] nothing too big . Call placed to [facility] pharmacy to clarify prescribed dose of insulin, and the only prescription for insulin [facility] has on file is for Relion 70/30 inject 25 units BID. [facility] pharmacist states this was prescribed 02/19/2020 but never picked up. The below information represents the best possible medication history: Yes Medication history completed by: Pharmacist: Shelby Lucero PharmD Source of history: Patient: Reliability of source: Appears reliable, clearly identified: Medication name and Pharmacy records: SureScripts data, [facility] pharmacy (phone call) Medication nonadherence identified: Unable to assess - it is clear the patient is noncompliant with her medications (admits she has been off her meds, no insulin fills at [facility] despite patient report), but at this time unable to assess reason for nonadherence. Reconciliation completed: Yes All BIOMEDICAL SCIENTIST medications addressed by LIP and Medication reconciliation completed by: Shelby Lucero PharmD Medications with dose or frequency intentionally adjusted at admission: ? [place] modified to 5/325 mg q6h PRN New medications at admission: ? Ceftriaxone Note patient ordered insulin regimen (Lantus 15 units QHS + sliding scale Humalog) and based on blood glucose readings, this is appropriate Patient interested in Bedside Delivery Services or using [facility] Pharmacy at discharge? Unable to assess Preferred outpatient pharmacy: [facility] [address] [place] [address] - [address] [facility] - [phone] Allergies: Latex Rash Comment:Added based on information [...] as instructed twice daily. Shelby Lucero, PharmD 01/19/2021[place] [id number] NoteHNO ID: [id number] Author: Inna Hansen DO Service: Hospital Medicine Author Type: Physician Type: Progress Notes Filed: 01/19/2021 2:24 PM Note Text: DEPARTMENT OF HOSPITAL MEDICINE PROGRESS NOTE SERVICE DATE: 01/19/2021 SERVICE TIME: 9:30 AM Hospital Medicine/Primary Attending: Inna Hansen DO NIGHT AND WEEKEND COVERAGE: DELMY COVERAGE: Days: [phone], please contact via Sightersage Nights: [phone], please page CC Hospitalist Night coverage pager [phone] Subjective INTERVAL HPI: no overnight events. Denies [...] Non-Pharmacologic VTE Prophylaxis/Anticoagulants 01/17/212214 pneumatic compression stockings (dc,nc) 01/17/212214 activity - mobilize patient ([place]) VTE Prophylaxis: VTE prophylaxis appropriate Disposition: Home Discussed with granddaughter Lola by phone with patient's permission. Inna Hansen DO January 19, 2021 9:33 [id number] History of Past illness Narrative* Problem Noted Date Resolved Date Acute cystitis without hematuria 01/18/2021 01/21/2021 Pyelonephritis 01/17/2021 01/21/2021 Sepsis 01/17/2021 01/21/2021 Hyponatremia 01/17/2021 01/21/2021 Hyperkalemia 01/17/2021 01/21/2021 Hydronephrosis due to obstruction of ureter 12/2101/21/2021 documented as of this encounter (statuses as of 01/27/2021) [facility] History of Past illness Narrative* Problem Noted Date Diagnosed Date Resolved Date Acute cystitis without hematuria 01/18/2021 01/21/2021 Pyelonephritis 01/17/2021 01/21/2021 Sepsis 01/17/2021 01/21/2021 Hyponatremia 01/17/2021 01/21/2021 Hyperkalemia 01/17/2021 01/21/2021 Hydronephrosis due to obstruction of ureter 01/17/2021 01/21/2021 documented as of this encounter (statuses as of 06/09/2023) [facility] History of Past illness Narrative* Problem Noted Date Diagnosed Date Resolved Date Acute cystitis without hematuria 01/18/2021 01/21/2021 Pyelonephritis 01/17/2021 01/21/2021 Sepsis 01/17/2021 01/21/2021 Hyponatremia 01/17/2021 01/21/2021 Hyperkalemia 01/17/2021 01/21/2021 Hydronephrosis due to obstruction of ureter 01/17/2021 01/21/2021 documented as of this encounter (statuses as of 06/15/2023) [facility] History of Past illness Narrative* Problem Noted Date Diagnosed Date Resolved Date Acute cystitis without hematuria 01/18/2021 01/21/2021 Pyelonephritis 01/17/2021 01/21/2021 Sepsis 01/17/2021 01/21/2021 Hyponatremia 01/17/2021 01/21/2021 Hyperkalemia 01/17/2021 01/21/2021 Hydronephrosis due to obstruction of ureter 01/17/2021 01/21/2021 documented as of this encounter (statuses as of 06/19/2023) [facility] History of Past illness Narrative* Problem Noted Date Diagnosed Date Resolved Date Acute cystitis without hematuria 01/18/2021 01/21/2021 Pyelonephritis 01/17/2021 01/21/2021 Sepsis 01/17/2021 01/21/2021 Hyponatremia 01/17/2021 01/21/2021 Hyperkalemia 01/17/2021 01/21/2021 Hydronephrosis due to obstruction of ureter 01/17/2021 01/21/2021 documented as of this encounter (statuses as of 06/23/2023) [facility] History of Past illness Narrative* Problem Noted Date Diagnosed Date Resolved Date Acute cystitis without hematuria 01/18/2021 01/21/2021 Pyelonephritis 01/17/2021 01/21/2021 Sepsis 01/17/2021 01/21/2021 Hyponatremia 01/17/2021 01/21/2021 Hyperkalemia 01/17/2021 01/21/2021 Hydronephrosis due to obstruction of ureter 01/17/2021 01/21/2021 documented as of this encounter (statuses as of 07/05/2023) [facility] NoteHNO ID: [id number] Author: Inna Hansen DO Service: Hospital Medicine Author Type: Physician Type: Progress Notes Filed: 01/18/2021 4:10 PM Note Text: DEPARTMENT OF HOSPITAL MEDICINE PROGRESS NOTE SERVICE DATE: 01/18/2021 SERVICE TIME: 8:57 AM Hospital Medicine/Primary Attending: Inna Hansen DO NIGHT AND WEEKEND COVERAGE: DELMY COVERAGE: Days: [phone], please contact via Blink (air taxi) SecureNXEsage Nights: [phone], please page CC Hospitalist Night coverage pager [phone] Subjective INTERVAL HPI: no overnight events. Denies [...] Yes Hyperkalemia POA: Yes Principal Problem: Sepsis ([facility]) Pyelonephritis Complicated UTI Hydronephrosis due [...] Non-Pharmacologic VTE Prophylaxis/Anticoagulants 01/17/212214 pneumatic compression stockings ([place]) 01/17/212214 activity - mobilize patient ([place] VTE Prophylaxis: VTE prophylaxis appropriate Disposition: Home SIGNATURE: Inna Hansen DO PATIENT NAME: Aislinn Wheeler DATE: January 18, 2021 TIME: 8:57 [id number] NoteHNO ID: [id number] Author: Taurus Ballard MD Service: Urology Author [...] cause of her urinary retention. Taurus Ballard, [id number] NoteHNO ID: [id number] Author: RT Dayanara(R) Service: Radiology Author Type: Kilnman Type: Progress Notes Filed: 01/17/2021 8:04 PM [...] BY: RT Dayanara(R) January 17, 2021 8:03 [id number] NoteHNO ID: [id number] Author: RT Dayanara(R) Service: Radiology Author Type: Kilnman Type: Progress Notes Filed: 01/17/2021 5:30 PM [...] BY: RT Dayanara(R) January 17, 2021 5:30 [id number] NoteHNO ID: [id number] Author: RT Zaynab(R) Service: Radiology Author Type: Kilnman Type: Progress Notes Filed: 01/17/2021 4:23 PM Note Text: Radiology Service Progress Note PATIENT NAME: Ailsinn Wheeler DATE OF SERVICE: January 17, 2021 [...] Workman RT (R) January 17, 2021 4:22 [id number] NoteHNO ID: [id number] Author: AHSAN Barlow Service: ? Author Type: Clinical Kilnman Type: Progress Notes Filed: 01/17/2021 4:19 PM [...] BY: AHSAN Dozier January 17, 2021 4:19 [facility] Future Appointments Appointment Date:12/13/2022 03:00:00 PM Scheduled Provider:HEIDY ARNOLD PA-C Location:[facility] Appointment Type:URO Office Visit [facility] evaluation + Plan note Future Appointments Appointment Date:10/26/2022 10:00:00 AM Scheduled Provider:Lisa Porras MD Location:[facility] Appointment Type:URO Office Visit Appointment Date:12/13/2022 03:00:00 PM Scheduled Provider:HEIDY ARNOLD PA-C Location:[facility] Appointment Type:URO Office Visit [facility] evaluation + Plan note Future Appointments Appointment Date:05/03/2023 10:00:00 AM Scheduled Provider:Lisa Porras MD Location:[facility] Appointment Type:URO Office Visit [facility] evaluation + Plan note Future Appointments Appointment Date:05/03/2023 10:00:00 AM Scheduled Provider:Lisa Porras MD Location:[facility] Appointment Type:URO Office Visit Diagnostic Tests Pending * [facility] App[facility]ments Appointment Date:05/15/2023 12:30:00 PM Scheduled Provider: Location:[facility] Appointment Type:Urology CALL PAT FT Appointment Date:05/22/2023 10:30:00 AM Scheduled Provider: Location:[facility] Appointment Type:Urology FT Diagnostic Tests Pending * Urine Culture [facility]11[facility] Future Appointments Appointment Date:06/28/2023 10:45:00 AM Scheduled Provider:Lisa Porras MD Location:[facility] Appointment Type:URO [facility] Future Appointments Appointment Date:06/28/2023 10:45:00 AM Scheduled Provider:Lisa Porras MD Location:[facility] Appointment Type:URO Office Visit Diagnostic Tests Pending * Urine Culture 06[facility]08[facility] Future Appointments Appointment Date:07/18/2023 11:20:00 AM Scheduled Provider:HEIDY ARNOLD PA-C Location:[facility] Appointment Type:URO Office Visit [facility] evaluation + Plan note Future Appointments Appointment Date:10/10/2023 11:40:00 AM Scheduled Provider:HEIDY ARNOLD PA-C Location:[facility] Appointment Type:URO Office Visit [facility] evaluation noteNo [email or web address] Other Evaluation note* Diagnosis Kidney cyst, acquired- Primary Acquired cyst of kidney [facility] Diagnosis Reflex sympathetic dystrophy of right upper extremity documented in this encounter [facility]No assessment information [facility] Work Phone: Evaluation note* Diagnosis Reflex sympathetic dystrophy of right upper extremity Complex regional pain syndrome type 1 of right upper extremity [facility] Diagnosis Reflex sympathetic dystrophy of right upper extremity Complex regional pain syndrome type 1 of right upper extremity [facility]* Diagnosis Other hydronephrosis- Primary Screening for genitourinary condition Screening for other and unspecified genitourinary condition documented [facility]* Diagnosis Retention of urine- Primary Retention of urine, unspecified Screening for genitourinary condition Screening for other and unspecified genitourinary condition Type 2 diabetes mellitus with hyperglycemia, with long-term current use of insulin ([facility]) BURKE (stress urinary incontinence, female) Female stress incontinence documented [facility]* Diagnosis Lung nodule- Primary Solitary pulmonary nodule documented [facility]* Diagnosis Stress incontinence- Primary Female stress incontinence Dysfunctional voiding of urine Unspecified disorder of urethra and urinary tract documented [facility]* Diagnosis Preop examination- Primary Preoperative examination, [...] hyperglycemia, with long-term current use of insulin ([facility]) Neurogenic bladder- Primary Neurogenic bladder, NOS BURKE (stress urinary incontinence, female) Female stress incontinence documented in this encounter [facility] general Narrative - Reported* Type Description [...] SURGERY Hospitalization History DKA 2014 Hospitalization History [facility] SEPSIS 05/2022 [place] Other [employer] general Narrative - Reported* Type Description Date [...] SURGERY Hospitalization History DKA 2014 Hospitalization History [facility] SEPSIS 05/2022 [facility] [place] Other Hospital course Narrative No data available for this section [facility] Hospital Discharge instructions No data available for this section [facility] InstructionsNot on filedocumented in this encounter [facility] filedocumented in this encounter [facility] No data available for this section [facility] Haroldo reason for referral (narrative)* Diagnostic Procedure Only (Routine) - Pending Review Specialty Diagnoses / Procedures Referred By Danny hensley Referred To Contact [facility] Diagnoses Kidney cyst, acquired Procedures US KIDNEY/BLADDER US RETROPERITONEAL REAL TIME W/IMAGE COMPLETE Taurus Ballard MD [address] [place] [address] [facility] [place] [address] Referral ID Status Reason Start Date Expiration Date Visits Requested Visits Authorized [id number] Pending Review Auto-Generat ed Referral 10/05/2023 08/03/2024 1 1 [facility] for referral (narrative)* Outpatient Procedure (Routine) - New Request Specialty Diagnoses / Procedures Referred By Danny hensley Referred To Contact [facility] Diagnoses Retention of urine BURKE (stress urinary incontinence, female) Procedures FLUROURODYNAMICS WITH EMG EMG STDS ANAL/URTL SPHNCTR OTH/THN NDL Carmenza Nolen MD [address] [place] [address] [place] [address] Referral ID Status Reason Start Date Expiration Date Visits Requested Visits Authorized [id number] New Request Auto-Generat ed Referral 03/26/2024 03/26/2025 1 1 [facility] for visit NarrativeReferral Agusto Olmstead, New pt Type 2 IDDM apt with [employer] SUPPLIER DIVERSITY DIRECTOR, STEAM PAN SPONGER-C, [place] Risk Other Summary Purpose Family History No Family [...] FoundDocuments on File Type Date Recorded Patient Manager Hi Expl anation Advance Directive(s) 01/17/2021 3:49 PM Reason for Referral Specialty Diagnoses / Procedures Referred By Contyehuda t Referred To Contact CT IMAGING Diagnoses Other hydronephrosis Procedures CT UROGRAM WO/W IVCON CT ABD & PELVIS W/WO CONTRST 1+ BODY REGNS Taurus Ballard MD [address] [place] [address] Ct Imaging [facility] Referral ID Status Reason Start Date Expiration Date Visits Requested Visits Authorized [id number] Pending Review Auto-Generat ed Referral 01/19/2024 02/10/2025 1 1 Referred by: Vern TAVERAS, Lisa Montiel Chief Complaint and Reason for Visit Chief Complaint Renal 4 Month Follow Up Additional Source Comments INFORMATION SOURCE (unrecogn ized section and content) DATE CREATED AUTHOR 01/23/2021 [facility] DATE CREATED AUTHOR AUTHOR'S ORGANIZ ATION 01/04/2023 [facility] DATE CREATED AUTHOR AUTHOR'S ORGANIZ ATION 10/19/2023 [facility] DATE CREATED AUTHOR AUTHOR'S ORGANIZ ATION 11/03/2023 [facility] DATE CREATED AUTHOR AUTHOR'S ORGANIZ ATION 03/05/2024 [facility] DATE CREATED AUTHOR AUTHOR'S ORGANIZ ATION 04/02/2024 [facility] DATE CREATED AUTHOR AUTHOR'S ORGANIZ ATION 04/15/2024 [facility] DATE CREATED AUTHOR AUTHOR'S ORGANIZ ATION 04/18/2024 [facility] DATE CREATED AUTHOR AUTHOR'S ORGANIZ ATION 04/25/2024 [facility] Source Comments (unrecognize d section and content) In the event this informatio n is protected by the Federal Confidentiality of Alcohol and Drug Abuse Patient Records regulations: The Federal rules restrict any use of the information to criminally investigate or prosecute any alcohol or drug abuse patient.[facility] the event this information is protected by the Federal Confidentiality of Alcohol and Drug Abuse Patient Records regulations: The Federal rules restrict any use of the information to criminally investigate or prosecute any alcohol or drug abuse patient.[facility] Company[facility] the event this information is protected by the Federal Confidentiality of Alcohol and Drug Abuse Patient Records regulations: The Federal rules restrict any use of the information to criminally investigate or prosecute any alcohol or drug abuse patient.[facility] the event this information is protected by the Federal Confidentiality of Alcohol and Drug Abuse Patient Records regulations: The Federal rules restrict any use of the information to criminally investigate or prosecute any alcohol or drug abuse patient.[facility] Company[facility] the event this information is protected by the Federal Confidentiality of Alcohol and Drug Abuse Patient Records regulations: The Federal rules restrict any use of the information to criminally investigate or prosecute any alcohol or drug abuse patient.[facility] Company[facility] the event this information is protected by the Federal Confidentiality of Alcohol and Drug Abuse Patient Records regulations: The Federal rules restrict any use of the information to criminally investigate or prosecute any alcohol or drug abuse patient.[facility] Company[facility] the event this information is protected by the Federal Confidentiality of Alcohol and Drug Abuse Patient Records regulations: The Federal rules restrict any use of the information to criminally investigate or prosecute any alcohol or drug abuse patient.[facility] Company[facility] the event this information is protected by the Federal Confidentiality of Alcohol and Drug Abuse Patient Records regulations: The Federal rules restrict any use of the information to criminally investigate or prosecute any alcohol or drug abuse patient.[facility] Company[facility] the event this information is protected by the Federal Confidentiality of Alcohol and Drug Abuse Patient Records regulations: The Federal rules restrict any use of the information to criminally investigate or prosecute any alcohol or drug abuse patient.[facility] Company[facility] the event this information is protected by the Federal Confidentiality of Alcohol and Drug Abuse Patient Records regulations: The Federal rules restrict any use of the information to criminally investigate or prosecute any alcohol or drug abuse patient.[facility] Company[facility] the event this information is protected by the Federal Confidentiality of Alcohol and Drug Abuse Patient Records regulations: The Federal rules restrict any use of the information to criminally investigate or prosecute any alcohol or drug abuse patient.[facility] Company[facility] the event this information is protected by the Federal Confidentiality of Alcohol and Drug Abuse Patient Records regulations: The Federal rules restrict any use of the information to criminally investigate or prosecute any alcohol or drug abuse patient.[facility] Company[facility] the event this information is protected by the Federal Confidentiality of Alcohol and Drug Abuse Patient Records regulations: The Federal rules restrict any use of the information to criminally investigate or prosecute any alcohol or drug abuse patient.[facility] CompanyIn the event this information is protected by the Federal Confidentiality of Alcohol and Drug Abuse Patient Records regulations: The Federal rules restrict any use of the information to criminally investigate or prosecute any alcohol or drug abuse patient.[facility] Company[facility] the event this information is protected by the Federal Confidentiality of Alcohol and Drug Abuse Patient Records regulations: The Federal rules restrict any use of the information to criminally investigate or prosecute any alcohol or drug abuse patient.[facility] Company[facility] the event this information is protected by the Federal Confidentiality of Alcohol and Drug Abuse Patient Records regulations: The Federal rules restrict any use of the information to criminally investigate or prosecute any alcohol or drug abuse patient.[facility] CompanyIn the event this information is protected by the Federal Confidentiality of Alcohol and Drug Abuse Patient Records regulations: The Federal rules restrict any use of the information to criminally investigate or prosecute any alcohol or drug abuse patient.[facility] Company[facility] the event this information is protected by the Federal Confidentiality of Alcohol and Drug Abuse Patient Records regulations: The Federal rules restrict any use of the information to criminally investigate or prosecute any alcohol or drug abuse patient.[facility] Reason for Visit (unrecogniz ed section and [...] c/o UNCONTROLLED leakage - STOP ICS X2 [id number] Patient Care team informatio n (unrecognized section and content) Welfare Worker Relationship Specialty Start Date End Date RicAgusto casillas [address] [place] [address] [place] [address] PCP - General 05/17/23 Lisa Porras MD [address] [place] [address] Referring Urology 05/11/23 Welfare Worker Relationship Specialty Start Date End Date [facility] [address] [place] [address] [place] [address] PCP - General 05/17/23 Lisa Porras MD [address] [place] [address] Referring Urology 05/11/23 Welfare Worker Relationship Specialty Start Date End Date Ricapurvamundo Agusto [address] [place] [address] PCP - General 05/17/23 Lisa Porras MD [address] [place] [id number] Referring Urology 05/11/23 Welfare Worker Relationship Specialty Start Date End Date RicapurvaAgusto casillas [address] [facility] [place] [address] PCP - General 05/17/23 Lisa Porras MD [address] [place] [address] [id number] Referring Urology 05/11/23 Welfare Worker Relationship Specialty Start Date End Date Agusto Olmstead, SUPPLIER DIVERSITY DIRECTOR-BEAUTY COUNSELOR [address] [place] [address] PCP - General Nurse Practitioner 11/10/22 Welfare Worker Relationship Specialty Start Date End Date RicapurvaAgusto casillas [address] [place] [address] PCP - General 05/17/23 Lisa Porras MD [address] [address] Referring Urology 05/11/23 Welfare Worker Relationship Specialty Start Date End Date Agusto Olmstead [address] [place] [address] PCP - General 05/17/23 Lisa Porras MD [address] [place] [address] Referring Urology 05/11/23 Team Status: Active Member Role Status Dates Sumi Lentz APRN RAG GRADER-C Primary Care Provider Active Team Status: Inactive Member Role Status Dates Eli Sprague MD Attending Provider Active Star t: August 01, 2023 End: August 01, 2023 Welfare Worker Relationship Specialty Start Date End Date Agusto Olmstead APRN-BEAUTY COUNSELOR [address] [place] [address] PCP - General Nurse Practitioner 11/10/22 Welfare Worker Relationship Specialty Start Date End Date Agusto Olmstead SUPPLIER DIVERSITY DIRECTOR-BEAUTY COUNSELOR [address] [place] [address] PCP - General Nurse Practitioner 11/10/22 Welfare Worker Relationship Specialty Start Date End Date RicapurvaAgusto casillas [address] [place] [address] PCP - General 05/17/23 Lisa Porras MD [address] [place] [address] Referring Urology 05/11/23 Agusto Olmstead [address] [place] [address] Referring 01/04/24 Welfare Worker Relationship Specialty Start Date End Date Agusto Olmstead [address] [place] [address] PCP - General 05/17/23 Lisa Porras MD [address] [place] [address] Referring Urology 05/11/23 Agusto Olmstead [address] [place] [address] Referring 01/04/24 Welfare Worker Relationship Specialty Start Date End Date Agusto Olmstead [address] [place] [address] PCP - General 05/17/23 Lisa Porras MD [address] [place] [address] Referring Urology 05/11/23 Agusto Olmstead [address] [place] [address] Referring 01/04/24 Welfare Worker Relationship Specialty Start Date End Date Agusto Olmstead [address] [place] [address] PCP - General 05/17/23 Lisa Porras MD [address] [place] [address] Referring Urology 05/11/23 Agusto Olmstead [address] [place] [address] Referring 01/04/24 Welfare Worker Relationship Specialty Start Date End Date Agusto Olmstead [address] [place] [address] PCP - General 05/17/23 Lisa Porras MD [address] [place] [address] Referring Urology 05/11/[address] [place] [address] Referring 01/04/24 Welfare Worker Relationship Specialty Start Date End Date Agusto Olmstead [address] [place] [address] PCP - General 05/17/23 Lisa Porras MD [address] [place] [address] Referring Urology 05/11/23 Agusto Olmstead [address] [place] [address] Referring 01/04/24 Welfare Worker Relationship Specialty Start Date End Date Agusto Olmstead [address] [place] [address] PCP - General 05/17/23 Lisa Porras MD [address] [place] [address] Referring Urology 05/11/[address] [address] [place] [address] Referring 01/04/24 Welfare Worker Relationship Specialty Start Date End Date Agusto Olmstead [address] [place] [address] PCP - General 05/17/23 Lisa Porras MD [address] [place] [address] Referring Urology 05/11/23 Agusto Olmstead [address] [place] [address] Referring 01/04/24 Goals (unrecognized section and content) [...] BE BASED ON THE PRIMARY CLINICAL RECORDS. [facility]. provides no warranty or guarantee of the accuracy or completeness of information in this document.
[2024-04-25 22:54] VITALS: BP 114/65; PULSE 91; TEMP 38.1; O2SAT 96; BMI 24.0
[2024-04-26] VITALS (24 sets, daily range): BP systolic 97–182; BP diastolic 57–88; PULSE 73–91; TEMP 36.4–37; O2SAT 94–97; BMI 24.9
--- NOTE | 2024-04-26 00:07 | PC.NURSE ---
Patient and granddaughter both think the patient is septic. I asked why they think this, she said that she has been septic several times in the past and this feels the same. She is being treated for allergies by her PCP, but her sx are getting worse and she is running a fever now.
[2024-04-26 00:22] LABS: Bilirubin Urine NEGATIVE (NEGATIVE); Blood Urine MODERATE (NEGATIVE); Clarity Urine CLEAR (CLEAR); Color Urine YELLOW (YELLOW); Glucose Urine UA NEGATIVE (NEGATIVE); Ketones Urine NEGATIVE (NEGATIVE); Leukocyte Esterase Urine LARGE (NEGATIVE); Nitrite Urine NEGATIVE (NEGATIVE); Protein Urine 100 mg/dL (NEG/TRACE); Urobilinogen Urine 0.2 EU/dL (0.2-1.0)
[2024-04-26 00:23] LABS: Urine Microscopic Indicated YES
--- NOTE | 2024-04-26 00:32 | XR_ITS ---
The [address] [address] Patient Name: AISLINN CARNES MRN: [id number] date: 1960 Sex: F Assigned Patient Location: ER Current Patient Location: ER Accession/Order Number: [id number] Exam Date: 04/26/2024 01:06 Report Date: 04/26/2024 01:35 At the request of: TONY LUO Procedure: XR chest 1V EXAM: XR chest 1V HISTORY: cough COMPARISON: Chest x-ray, 01/08/2024. TECHNIQUE: AP upright portable chest x-ray. FINDINGS: The heart is mildly enlarged. The mediastinal contour and pulmonary vascularity are within normal limits. There is mild left basilar patchy opacity which may reflect atelectasis or early infiltrate. The lungs and pleural spaces are otherwise clear. XR/XR chest 1V IMPRESSION: Mild cardiomegaly with nonspecific mild left basilar patchy atelectasis or early pneumonia. The lungs are otherwise grossly clear. Electronically authenticated by: ZACKERY ARANDA Date: 04/26/2024 01:35
--- NOTE | 2024-04-26 00:35 | ED.URI1 ---
HPI - URI/Sore Throat General Chief Complaint: Upper Respiratory Infection Stated Complaint: WEAKNESS Time Seen by Provider: 04/26/24 00:26 Source: patient Limitations: no limitations History of Present Illness HPI Narrative: patient presents complaining of not feeling well for one week. States was seen by PCP and treated for possible allergies. States did not help. Describes cough occ and post tussive emesis. states she feels weak and sick. Not short of breath Related Data Home Medications ?Medication ?Instructions ?Recorded ?Confirmed insulin lispro 100 unit/mL 1 sliding scale dose subcut QID 05/12/23 04/26/24 subcutaneous pen pregabalin 150 mg capsule 150 mg PO Q8H 05/12/23 04/26/24 hydrocodone 7.5 mg-acetaminophen 1 tab PO Q8H PRN pain 07/07/23 04/26/24 325 mg tablet ferrous sulfate 325 mg (65 mg 325 mg PO DAILY 01/10/24 04/26/24 iron) tablet (FeroSul) amlodipine 5 mg tablet 5 mg PO QD 01/18/24 04/26/24 B-complex with vitamin C 1 cap PO DAILY 04/26/24 04/26/24 (Support-500 capsule) cetirizine 10 mg tablet (24Hour 10 mg PO DAILY 04/26/24 04/26/24 Allergy) fluticasone propionate 50 1 spray intranasal DAILY PRN 04/26/24 04/26/24 mcg/actuation nasal allergies spray,suspension (24 Hour Allergy Relief) Previous Rx's ?Medication ?Instructions ?Recorded insulin glargine 100 unit/mL (3 28 unit (0.28 mL) subcut QPM #0 mL 01/11/24 mL) subcutaneous pen (Lantus Solostar U-100 Insulin) Allergies Allergy/AdvReac Type Severity Reaction Status Date / Time latex Allergy Unknown Verified 01/04/24 08:42 Review of Systems ROS Status of ROS 10 or more systems reviewed and unremarkable except as noted in history and below [facility] Medical History (Updated 04/26/24 @ 03:48 by Vonnie Tijerina) Amputation of left great toe ?S98.112A - Complete traumatic amputation of left great toe, initial encounter (ICD-10) 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 ?N18.9 - Chronic kidney disease, unspecified (ICD-10) ?Z85.528 - Personal history of other malignant neoplasm of kidney (ICD-10) Neuropathy ?G62.9 - Polyneuropathy, unspecified (ICD-10) DM2 (diabetes mellitus, type 2) ?E11.9 - Type 2 diabetes mellitus without complications (ICD-10) Chronic renal insufficiency ?N18.9 - Chronic kidney disease, unspecified (ICD-10) Hyperglycemia due to diabetes mellitus ?E11.65 - Type 2 diabetes mellitus with hyperglycemia (ICD-10) Urinary tract infection ?N39.0 - Urinary tract infection, site not specified (ICD-10) HTN (hypertension) ?I10 - Essential (primary) hypertension (ICD-10) Stroke ?I63.9 - Cerebral infarction, unspecified (ICD-10) Lupus ?M32.9 - Systemic lupus erythematosus, unspecified (ICD-10) Arthritis ?M19.90 - Unspecified osteoarthritis, unspecified site (ICD-10) Fibromyalgia ?M79.7 - Fibromyalgia (ICD-10) Diabetes ?E11.9 - Type 2 diabetes mellitus without complications (ICD-10) Chronic kidney disease (CKD) ?N18.9 - Chronic kidney disease, unspecified (ICD-10) Neoplasm of kidney ?D49.519 - Neoplasm of unspecified behavior of unspecified kidney (ICD-10) Surgical History (Updated 01/10/24 @ 15:56 by Ashley Sanchez) Hx of neck surgery ?Z98.890 - Other specified postprocedural states (ICD-10) History of shoulder surgery ?Z98.890 - Other specified postprocedural states (ICD-10) History of hysterectomy ?Z90.710 - Acquired absence of both cervix and uterus (ICD-10) Family History (Updated 01/10/24 @ 15:58 by Ashley Sanchez) Brother Family history of CHF (congestive heart failure) Family history of myocardial infarction Father Family history of CHF (congestive heart failure) Family history of COPD (chronic obstructive pulmonary disease) Family history of myocardial infarction Sister Family history of cancer Grandmother Family history of cancer Family history of diabetes mellitus Social History (Updated 04/26/24 @ 04:43 by Vonnie Tijerina) Within the past year, how often did you have a drink containing alcohol: never Within the past year, how often did you have six or more drinks on one occasion: never Score interpretation: A score less than 3 is consistent with normal alcohol consumption. Smoking status: Never smoker Non-prescribed substance use: denies use Known occupational exposures/hazards: No Highest level of school completed/degree received: GED or equivalent Do you want help with school or training: No Are you now , , , , never or living with a partner: In a typical week, how many times do you talk on the telephone with family, friends, or neighbors: 3 or more times per week How often do you get together with friends or relatives: 3 or more times per week How often do you attend synagogue or buddhist services: never Do you belong to any clubs or organizations such as synagogue groups unions, [employer] or athletic groups, or school groups: no Total score: 1 Score interpretation: A score of less than or equal to 1 indicates the most socially isolated. Little interest or pleasure in doing things: not at all Feeling down, depressed, or hopeless: not at all Feel stressed/tense/nervous/anxious/difficulty sleeping: to some extent Life stressors: other Life stressor details: Personal health Gender Identity: female Exam Constitutional Vital Signs, click to edit/add: Last Vital Signs Temp 98.5 F 04/26/24 03:34 Pulse 74 04/26/24 06:02 Resp 21 H 04/26/24 03:34 BP 97/57 04/26/24 03:34 Pulse Ox 94 L 04/26/24 04:00 O2 Del Method Room Air 04/26/24 03:34 Common normals: no apparent distress, average body habitus, oriented x3, no limitations, healthy appearing, alert and well nourished [facility] Common normals: normocephalic and head/scalp atraumatic Chest Common normals: inspection of chest normal and palpation of chest normal Respiratory Common normals: normal respiratory effort, no retractions, no use of accessory muscles and clear to auscultation bilaterally Cardio Common normals: regular rate, regular rhythm, S1 normal heart sound and S2 normal heart sound GI Common normals: Normal to inspection, nondistended, normoactive bowel sounds present, soft to palpation and non-tender Back & Pelvis Common normals: no CVA tenderness Extremity Common normals: normal to inspection and full ROM Neuro Common normals: oriented x3 and CN's II-XII intact bilaterally Psych Appearance: grossly normal Course Vital Signs Vital signs: Vital Signs Temperature 100.5 F H 04/25/24 22:54 Pulse Rate 91 H 04/25/24 22:54 Respiratory Rate 16 04/25/24 22:54 Blood Pressure 114/65 04/25/24 22:54 Pulse Oximetry 96 04/25/24 22:54 Oxygen Delivery Method Room Air 04/25/24 22:54 Temperature 98.5 F 04/26/24 03:34 Pulse Rate 74 04/26/24 06:02 Respiratory Rate 21 H 04/26/24 03:34 Blood Pressure 97/57 04/26/24 03:34 Pulse Oximetry 94 L 04/26/24 04:00 Oxygen Delivery Method Room Air 04/26/24 03:34 MDM - URI/Sore Throat MDM Narrative Medical decision making narrative: IDDM with CKD presents complaining of feeling ill for the past week. Described post tussive emesis . describes feeling weak and sick. No fever. Not short of breath. Found to have UTI, hyperkalemia. Patient cxray with mild cardiomegaly and ? atelectasis left chest vs early pneumonia. Pulse ox RA 96%. RR 16. No clinical evidence to support pneumonia. Given dose of Rocephin and also order D 50, insulin and albuterol NMT for the hyperkalemia. Discussed with the hospitalist and patient accepted for admission Lab Data Labs: Lab Results 04/25/24 04/26/24 Range/Units 23:55 01:00 WBC 12.5 H (4.0-11.0) 10^3/uL RBC 4.55 (4.20-5.40) 10^6/uL Hgb 11.9 L (12.0-16.0) g/dL Hct 36.8 (36.0-48.0) % MCV 80.9 L (81.0-99.0) fL MCH 26.2 L (26.7-34.0) pg MCHC 32.3 (29.9-35.2) g/dL RDW 13.6 (11.0-15.0) % Plt Count 304 (150-450) 10^3/uL MPV 10.4 (9.5-13.5) fL Neut % (Auto) 85.5 H (43.0-75.0) % Lymph % (Auto) 8.6 L (20.5-60.0) % Gage % (Auto) 4.6 (1.7-12.0) % Eos % (Auto) 0.2 L (0.9-7.0) % Baso % (Auto) 0.5 (0.2-2.0) % Neut # (Auto) 10.7 H (1.4-6.5) 10^3/uL Lymph # (Auto) 1.1 L (1.2-3.8) 10^3/uL Gage # (Auto) 0.6 (0.3-0.8) 10^3/uL Eos # (Auto) 0.0 (0.0-0.7) 10^3/uL Baso # (Auto) 0.1 (0.0-0.1) 10^3/uL Abs Immat Gran (auto) 0.07 H (0.00-0.03) 10^3/uL Imm/Tot Granulo (auto) 0.6 H (0.0-0.5) % Sodium 133 L (136-145) mmol/L Potassium 6.8 H* (3.5-5.1) mmol/L Chloride 103 (98-107) mmol/L Carbon Dioxide 20.8 L (21.0-32.0) mmol/L Anion Gap 16.0 BUN 43.0 H (7.0-18.0) mg/dL Creatinine 2.48 H (0.55-1.02) mg/dL Est GFR ( Amer) 24 L (>=60) Est GFR (Non-Af Amer) 20 L (>=60) BUN/Creatinine Ratio 17.3 Glucose 211 H (74-106) mg/dL Lactate 0.8 (0.4-2.0) mmol/L Calcium 9.1 (8.5-10.1) mg/dL Total Bilirubin 0.5 (0.2-1.0) mg/dL AST 11 L (15-37) U/L ALT 20 (14-59) U/L Alkaline Phosphatase 92 (46-116) U/L Troponin I High Sens 5.9 (4.0-51.3) pg/mL Total Protein 8.7 H (6.4-8.2) g/dL Albumin 2.9 L (3.4-5.0) g/dL Globulin 5.8 g/dL Albumin/Globulin Ratio 0.5 Urine Color Yellow (YELLOW) Urine Clarity Clear (CLEAR) Urine pH 6.0 (5.0-9.0) Ur Specific [place] 1.020 (1.005-1.025) Urine Protein 100 A (NEG/TRACE) mg/dL Urine Glucose (UA) Negative (NEGATIVE) mg/dL Urine Ketones Negative (NEGATIVE) mg/dL Urine Occult Blood Moderate A (NEGATIVE) Urine Nitrite Negative (NEGATIVE) Urine Bilirubin Negative (NEGATIVE) Urine Urobilinogen 0.2 (0.2-1.0) EU/dL Ur Leukocyte Esterase Large A (NEGATIVE) Urine RBC 10-20 A (0-2) #/HPF Urine WBC >100 A (NONE SEEN) #/HPF Ur Squamous Epith Cells Rare (NONE/RARE) #/LPF Urine Crystals None seen (None Seen) #/HPF Urine Bacteria Large A (NONE SEEN) #/HPF Urine Casts None seen (NONE SEEN) #/LPF Urine Mucus None seen (NONE SEEN) Ur Culture Indicated? Yes Discharge Plan Discharge Chief Complaint: Upper Respiratory Infection Clinical Impression: Acute UTI (urinary tract infection), Acute hyperkalemia, Acute dehydration Patient Disposition: Admitted as Observation Discharge Date/Time: 04/26/24 03:22
[2024-04-26 00:41] LABS: WBC Urine >100 #/HPF (NONE SEEN)
[2024-04-26 00:42] LABS: Bacteria Urine LARGE #/HPF (NONE SEEN); Cast Seen? NONE SEEN #/LPF (NONE SEEN); Crystals Seen? None Seen #/HPF (None Seen); Mucus Urine NONE SEEN (NONE SEEN); Squamous Epithelial Cell Urine RARE #/LPF (NONE/RARE); Urine Culture Indicated YES
[2024-04-26] MEDS: 0.9 % SODIUM CHLORIDE 1,000 ML 999 ML IV (01:03)
[2024-04-26] MEDS: ONDANSETRON PF 4 MG/2 ML VIAL IV (01:03)
[2024-04-26] MEDS: CEFTRIAXONE 1,000 MG in 0.9 % SODIUM CHLORIDE 50 ML 100 MG IV (01:14)
[2024-04-26 01:21] LABS: Basophils Absolute Auto 0.1 10^3/uL (0.0-0.1); Basophils Percent Auto 0.5 % (0.2-2.0); Eosinophils Percent Auto 0.2 % (0.9-7.0); Hematocrit 36.8 % (36.0-48.0); Hemoglobin 11.9 g/dL (12.0-16.0); Immature Granulocytes Abs Auto 0.07 10^3/uL (0.00-0.03); Immature Granulocytes Pct Auto 0.6 % (0.0-0.5); Lymphocytes Absolute Auto 1.1 10^3/uL (1.2-3.8); Lymphocytes Percent Auto 8.6 % (20.5-60.0); Mean Corpuscular HGB Conc 32.3 g/dL (29.9-35.2); Mean Corpuscular Hemoglobin 26.2 pg (26.7-34.0); Mean Corpuscular Volume 80.9 fL (81.0-99.0); Mean Platelet Volume 10.4 fL (9.5-13.5); Monocytes Absolute Auto 0.6 10^3/uL (0.3-0.8); Monocytes Percent Auto 4.6 % (1.7-12.0); Neutrophils Absolute Auto 10.7 10^3/uL (1.4-6.5); Neutrophils Percent Auto 85.5 % (43.0-75.0); Platelet Count 304 10^3/uL (150-450); Red Blood Count 4.55 10^6/uL (4.20-5.40); Red Cell Distribution Width 13.6 % (11.0-15.0); White Blood Count 12.5 10^3/uL (4.0-11.0)
[2024-04-26 01:36] LABS: Alanine Aminotransferase 20 U/L (14-59); Albumin Globulin Ratio 0.5; Albumin Level 2.9 g/dL (3.4-5.0); Alkaline Phosphatase 92 U/L (46-116); Aspartate Amino Transferase 11 U/L (15-37); BUN Creatinine Ratio 17.3; Bilirubin Total 0.5 mg/dL (0.2-1.0); Calcium 9.1 mg/dL (8.5-10.1); Carbon Dioxide 20.8 mmol/L (21.0-32.0); Chloride 103 mmol/L (98-107); Estimated GFR (African America 24 (>=60); Estimated GFR (Non-African Ame 20 (>=60); Globulin 5.8 g/dL; Glucose 211 mg/dL (74-106); Lactate/Lactic Acid 0.8 mmol/L (0.4-2.0); Sodium 133 mmol/L (136-145); Total Protein 8.7 g/dL (6.4-8.2); Troponin I High Sensitivity 5.9 pg/mL (4.0-51.3)
[2024-04-26 01:39] LABS: Potassium 6.8 mmol/L (3.5-5.1)
--- NOTE | 2024-04-26 01:45 | ECG_ITS ---
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
[2024-04-26] MEDS: INSULIN REGULAR, HUMAN (100 UNIT/ML) 10 ML MDV 10 UNIT IV (01:57)
[2024-04-26] MEDS: DEXTROSE 50 %-WATER 25 GM/50 ML SYRINGE IV (01:57)
[2024-04-26] MEDS: ALBUTEROL SULFATE 2.5 MG/3 ML VIAL NEB IH (02:06)
--- OUTSIDE RECORDS SUMMARY | 2024-04-26 03:32 | XMS_ITS | CCD ---
Author Organization [facility] Care Team Providers Care Quad Stayer Name Role Phone Pcp, No Primary Care Provider Unavailisidra e AGUSTO OLMSTEAD Primary Care Physician [phone] Eli Sprague Unavailable MARIBEL CARTOON ARTIST AGUSTO Attending Unavailable AICHHOLZ, CARTOON ARTIST AGUSTO Consulting Unavailable AICHHOLZ, CARTOON ARTIST AGUSTO Admitting Unavailable AICHHOLZ, CARTOON ARTIST AGUSTO Primary Care Unavailable RAMON HUNTLEY Attending Unavailable RAMON HUNTLEY Admitting Unavailable REQUEST, DR PANDEY LISTED Primary Care Unavaila georgi DELVALLE, DR THANH García Consulting Unavailable RAMON HUNTLEY Consulting Unavailable RICHHOLZ, CARTOON ARTIST AGUSTO Primary Care Unavailable RAMON HUNTLEY Admitting Unavailable RAMON HUNTLEY Attending Unavailable AICHHOLZ, CARTOON ARTIST AGUSTO Primary Care Unavailable FAWWAD, AMADO H Consulting Unavailable FAWWAD, AMADO H Admitting Unavailable FAWWAD, AMADO H Attending Unavailable AICHHOLZ, CARTOON ARTIST AGUSTO Consulting Unavailable AICHHOLZ, CARTOON ARTIST AGUSTO Admitting Unavailable AICHHOLZ, CARTOON ARTIST AGUSTO Attending Unavailable AICHHOLZ, CARTOON ARTIST AGUSTO Primary Care Unavailable RAMON HUNTLEY Attending Unavailable AICHHOLZ, CARTOON ARTIST AGUSTO Primary Care Unavailable RAMON HUNTLEY Admitting Unavailable BHARAT, DR NUBIA Carlos Consulting Unavailable RAMON HUNTLEY Consulting Unavailable RICHHOLZ, CARTOON ARTIST AGUSTO Primary Care Unavailable DR NUBIA NICHOLSON V Consulting Unavailable CAMMIE SEGURA Admitting Unavailable CAMMIE SEGURA Attending Unavailable CAMMIE SEGURA Consulting Unavailable AICHHOLZ, CARTOON ARTIST AGUSTO Primary Care Unavailable AICHHOLZ, CARTOON ARTIST AGUSTO Attending Unavailable AICHHOLZ, CARTOON ARTIST AGUSTO Admitting Unavailable WEST, DR NUBIA Carlos Consulting Unavailable AICHHOLZ, CARTOON ARTIST AGUSTO Consulting Unavailable AICHHOLZ, CARTOON ARTIST AGUSTO Primary Care Unavailable COLTON, CAMMIE Admitting Unavailable COLTON, CAMMIE Attending Unavailable COLTON, CAMMIE Consulting Unavailable AICHHOLZ, CARTOON ARTIST AGUSTO Primary Care Unavailable AICHHOLZ, CARTOON ARTIST AGUSTO Attending Unavailable AICHHOLZ, CARTOON ARTIST AGUSTO Consulting Unavailable AICHHOLZ, CARTOON ARTIST AGUSOT Admitting Unavailable AICHHOLZ, CARTOON ARTIST AGUSTO Primary Care Unavailable WEST, DR NUBIA Carlos Consulting Unavailable COLTON, CAMMIE Admitting Unavailable COLTON, ACMMIE Attending Unavailable COLTON, CAMMIE Consulting Unavailable AICHHOLZ, CARTOON ARTIST AGUSTO Primary Care Unavailable ZIEBER, DR THANH García Consulting Unavailable HIGHLANDER, RAMON Tillman Attending Unavailable HIGHLANDER, RAMON Tillman Admitting Unavailable HIGHLANDERRAMON Consulting Unavailable AICHHOLZ, CARTOON ARTIST AGUSTO Primary Care Unavailable FOSTER ., DR PAGE Admitting Unavailable FOSTER ., DR PAGE Attending Unavailable FOSTER ., DR PAGE Consulting Unavailable ZIEBER, DR THANH García Consulting Unavailable WILLYANDER, PETER Primo Admitting Unavailable AICHHOLZ, CARTOON ARTIST AGUSTO Primary Care Unavailable ZIEBER, DR THANH García Consulting Unavailable HIGHLANDER, PETER Primo Attending Unavailable HIGHLANDER PETER Primo Consulting Unavailable AICHHOLZ, CARTOON ARTIST AGUSTO Primary Care Unavailable AICHHOLZ, CARTOON ARTIST AGUSTO Attending Unavailable AICHHOLZ, CARTOON ARTIST AGUSTO Consulting Unavailable AICHHOLZ, CARTOON ARTIST AGUSTO Admitting Unavailable ZIEBER, DR THANH García Consulting Unavailable AICHHOLZ, CARTOON ARTIST AGUSTO Primary Care Unavailable ZIEBER, DR THANH García Consulting Unavailable HIGHLANDER, RAMON Tillman Attending Unavailable HIGHLANDER PETER D Admitting Unavailable HIGHLANDERRAMON Consulting Unavailable AICHHOLZ, CARTOON ARTIST AGUSTO Primary Care Unavailable ZIEBER, DR THANH García Consulting Unavailable COLTON, CAMMIE Admitting Unavailable COLTON, CAMMIE Attending Unavailable COLTON, CAMMIE Consulting Unavailable RAQUEL DERAS Admitting Unavailable RAQUEL DERAS Attending Unavailable KASIE CANDELARIO Consulting Unavailable REQUEST, DR PANDEY LISTED Primary Care Unavaila ble WANDY .RAQUEL Consulting Unavailable LYLE MATIAS Consulting Unavailable AICHHOLZ, CARTOON ARTIST AGUSTO Primary Care Unavailable EARL ., DR CARMONA Admitting Unavailable EARL ., DR CARMONA Attending Unavailable EARL ., DR CARMONA Consulting Unavailable TONY LUO Consulting Unavailable NUBIA BATEMAN Consulting Unavailable AICHHOLZ, CARTOON ARTIST AGUSTO Primary Care Unavailable HIGHLANDER, RAMON Tillman Admitting Unavailable HIGHLANDER, RAMON Tillman Attending Unavailable HIGHLANDER, RAMON Tillman Admitting Unavailable AICHHOLZ, CARTOON ARTIST AGUSTO Primary Care Unavailable HIGHLANDER, RAMON Tillman Attending Unavailable HIGHLANDER, PETER D Admitting Unavailable AICHHOLZ, CARTOON ARTIST AGUSTO Primary Care Unavailable ZIEBER, DR THANH García Consulting Unavailable HIGHLANDER, RAMON Tillman Attending Unavailable HIGHLANDER, RAMON Tillman Consulting Unavailable HIGHLANDER, RAMON Tillman Admitting Unavailable AICHHOLZ, CARTOON ARTIST AGUSTO Primary Care Unavailable HIGHLANDER, RAMON Tillman Attending Unavailable HIGHLANDER, RAMON Tillman Attending Unavailable HIGHLANDER, PETER D Admitting Unavailable REQUEST, NONE LISTED Primary Care Unavaila ble HIGHLANDER, RAMON D Admitting Unavailable AICHHOLZ, CARTOON ARTIST AGUSTO Primary Care Unavailable HIGHLANDER, RAMON Tillman Attending Unavailable HIGHLANDER, RAMON D Admitting Unavailable AICHHOLZ, CARTOON ARTIST AGUSTO Primary Care Unavailable HIGHLANDER, RAMON Tillman [...] Unavailable SMALLWOOD, REJI FLORES Consulting Unavailable AICHHOLZ, CARTOON ARTIST AGUSTO Primary Care Unavailable WEST, DR NUBIA Carlos Consulting Unavailable CAMMIE SEGURA Admitting Unavailable CAMMIE SEGURA Attending Unavailable CAMMIE SEGURA Consulting Unavailable HIGHLANDER, RAMON Tillman Admitting Unavailable AICHHOLZ, CARTOON ARTIST AGUSTO Primary Care Unavailable ZIIMTIAZ, DR THANH [...] Unavailable AICHHOLZ, AGUSTO J Primary Care Unavailable URTH, ZACKERY E Admitting Unavailable PEDRO, ZACKERY E [...] (2 sources) Latex Substance Allergy 0 Rash [facility] (20 sources) Latex; Translations: [Latex] Allergy to substance 0 Eruption of skin (disorder), Rash [facility] Medications Current Medications Medication Drug Class(es) [...] on above: Take 2 tablets by mo [facility] every 6 hours as needed for pain. [...] rain th three times daily as needed. [id number] 200 actuat albuterol 0.09 mg/actuat metered dose [...] x 1 month, then 2x/week for maintainence, [facility], 153, cm, 05/03/23 9:52:00 EDT, Height/Length [...] day(s), # 30 tab(s), Refills(s) 6, Pharmacy: [facility], 153, cm, 09/21/22 8:48:00 EST, Height/Length [...] day(s), # 30 tab(s), Refills(s) 6, Pharmacy: [facility], 153, cm, 09/13/22 13:38:00 EST, Height/Length [...] three times daily. 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] Onset: 08-09-2022 Episodic [...] 05-16-2022 Episodic Other aftercare (1 source) 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 Bladder remodeling without VUR. Valsalva voiding with atonic detrusor. Will refer to consider bladder augmentation. 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 The bony and soft tissue structures are within normal. 147 ccs contrast were used to fill the bladder. The bladder outline is irregular/trabeculated and abnormal shaped appearing. There is no ureteral reflux. During the voiding phase there is abnormal bladder neck opening and urethra is not visualized. Bladder emptying is not visualized Read (more content not included)... Normal [facility] CNOVon 03-26-2024 CNOV Office Visit (UROLAV ) AISLINN WHEELER ([id number]) 1960 F Date Time Provider Department 03/26/24 [...] Carmenza Nolen MD 03/26/2024 11:54 AM Signed [facility] UROLOG[facility]IS[facility] FEMALE PELVIC MEDICINE AND RECONSTRUCTIVE SURGERY HISTORY OF PRESENT ILLNESS: Aislinn Wheeelr is a 63 year old F female [...] her bladder. Had bladder botox injections at [facility] about 3 mo ago with no improvement. 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 Normal [facility] UA DIP, URINE (POC)on 2023 BILIRUBIN UA (POCT) Negative Negative [facility] CLARITY UA (POCT) Cloudy [facility] COLOR UA (POCT) Light yellow [facility] GLUCOSE UA (POCT) Negative Negative mg/dL [facility] Hemoglobin Ql (U) Trace-intact Abnormal Negative [facility] Interpretation and review of laboratory results Abnormal [facility] KETONE UA (POCT) Negative Negative mg/dL [facility] LEUKOCYTES UA (POCT) Moderate Abnormal Negative [facility] NITRITE UA (POCT) Negative Negative [facility] PH UA (POCT) 6.0 4.5 - 8.0 [facility] Protein Ql (U) 100 mg/dL Abnormal Negative [facility] SPECIFIC GRAVITY UA (POCT) 1.020 1.005 - 1.030 [facility] UROBILINOGEN UA (POCT) 0.2 Normal E.U./dL [facility] Location:[facility], [address] [place], [place], [id number] [place] [address] POINT OF CARE [facility] Glucose Glucometer (BldC) [M ass/Vol]on 03-15-2024 Glucose [Mass/Vol] 164 mg/dL High 65-99 [facility] CNPOlivia 02-26-2024 CNPN Telephone (URFHR) AISLINN WHEELER ([id number]) 1960 F Date Time Provider Department 02/26/24 [...] Encounter Status:Closed by FLAVIO COON [facility] [facility] Telephone ([facility]) LIAMAISLINN M ([id number]) 1960 F Date Time Provider Department 02/12/24 [...] Encounter Status:Closed by VONNIE WILDER on 02/12/24 [facility] CREATININE Don 02-01-2024 Creatinine [Mass/Vol] 1.78 mg/dL High 0.58-0.96 [facility] Comment on above: Order Comment: Speci men Type: BLOOD SPECIMENOrdering Facility: [facility] Address: [address] [place] [address] Performed By: #### C RET1 ####[facility] LABCLIA [id number] [place] [address] Creatinine and Glomerular filtration rate.predicted panel (S/P/Bld) 31 mL/min/1.73m??? Low >=60 [facility] Comment on above: Order Comment: Speci men Type: BLOOD SPECIMENOrdering Facility: [facility] Address: [address] [place] [address] Result Comment: Donna mated Glomerular Filtration Rate [...] actual GFR. Performed By: #### C RET1 ####[facility] LABCLIA [id number] [place] [address] CT UROGRAM WO/W IVCONon 06- CT UROGRAM WO/W IVCON * * *Final Report* * * DATE OF EXAM: Feb 01 2024 3:26PM [facility] 0560 - CT UROGRAM WO/W [...] be communicated with the ordering provider via [employer] staff message or phone message by Imaging [...] any questions regarding this interpretation, please call [phone]. If you are unable to reach us at the number above, please feel free to contact [facility] eRadiology at [phone]. [id number] ACTIONABLE Invalid Interpretation Code [facility] CNOVon 01-12-2024 CNOV Office Visit (URFMOB ) AISLINN WHEELER ([id number]) 1960 F Date Time Provider Department 01/12/24 1:50 PM TAURUS BALLARD During your visit today, we recorded the following information about you: Pulse Blood pressure 75/minute 142/69 Taurus Ballard MD 01/12/2024 2:43 PM Signed [facility] FOLLOW-UP PATIENT HISTORY AND [...] urogram Will refer to Dr. Tamanna Ruiz APRN.CARTOON ARTIST Attending Note I have personally performed a [...] her ki (more content not included)... Normal [facility] UA DIP, URINE (POC)on 2023 BILIRUBIN UA (POCT) Negative Negative [facility] CLARITY UA (POCT) Clear [facility] COLOR UA (POCT) Yellow [facility] GLUCOSE UA (POCT) 100 mg/dL Abnormal Negative [facility] Hemoglobin Ql (U) Trace-intact Abnormal Negative [facility] Interpretation and review of laboratory results Abnormal [facility] KETONE UA (POCT) Negative Negative mg/dL [facility] LEUKOCYTES UA (POCT) Small Abnormal Negative [facility] NITRITE UA (POCT) Negative Negative [facility] PH UA (POCT) 5.5 4.5 - 8.0 [facility] Protein Ql (U) 100 mg/dL Abnormal Negative [facility] SPECIFIC GRAVITY UA (POCT) 1.015 1.005 - 1.030 [facility] UROBILINOGEN UA (POCT) 0.2 Normal E.U./dL [facility] Location:[facility] [place], [place], [address] [place] [address] POINT OF CARE [facility] ED Note-Physicianon 10-30-19 24 ED Note-Physician [id number]#1.00 TIFF Normal [facility] Lab Reportson 10-30-2023 Lab Reports [id number]#1.00T IFF Normal [facility] Lab Reports [id number]#1.00T IFF Normal [facility] Urology Office/Clinic Noteon 10-26-2023 Urology Office/Clinic Note Chief Complaint S/P to Cysto with Botox HPI Staff KML pt. Here for f/u to Botox 100u done 05/22/23. R/s'd appt from 06/28/23. Previous dx: renal cyst, mixed incontinence, feeling of incomplete bladder emptying, glucosuria. Pt was referred to Dr. Ballard at [facility] for evaluation of robotic left cyst [...] Assessment/Plan 1. Mixed incontinence (N39.46: Mixed incontinence) DIRECTOR SPEECH Aug 2022 c/o UUI>BURKE incontinence, worsening. BURKE [...] procedure. This is confusing bc review of [facility]'s op report shows completely normal events (lidocaine instilled normally, 10 injections of 2ml each) so it's unclear if pt received full 100units or not. Pt called 06/08/23 c/o worsening leakage after Botox. PVR was 174 cc (compared to 142cc prior to botox). KML recommended to start CIC 3x/day for residual, timed voids q2hr, and tight DM control. Pt was in [facility] ER 06/19 and treated for E [...] kidney measuri (more content not included)... Normal [facility] Comment on above: Result Comment: Elec tronically [...] PA-C, URL When: Where: [address] [place] [address] Medications What How Much When Instructions Unchanged [...] including vitamins, herbs, eye drops, creams, and txvu-dxx-pyxykaw medicines. ? Any problems you or family [...] no (more content not included)... Normal [facility] Patient Educationon 10-25-19 Patient Education Urology [...] including vitamins, herbs, eye drops, creams, and sntn-uhq-gzezurh medicines. ? Any problems you or family [...] tells you to take them. ? Taking ibtq-weu-kbamcuu medicines, vitamins, herbs, and supplements. General instructions [...] these instructions at home: Medicines ? Take dnvl-bjk-kulxglo and prescription medicines only as told by [...] health ca (more content not included)... Normal [facility] Glucose Glucometer (BldC) [M ass/Vol]on 10-13-2023 Glucose [Mass/Vol] 276 mg/dL High 65-99 [facility] Glucose Glucometer (BldC) [M ass/Vol]on 09-29-2023 Glucose [Mass/Vol] 356 mg/dL High 65-99 [facility] CNPNon 09-27-2023 CNPN Telephone (FVPRAD) AISLINN WHEELER ([id number]) 1960 F Date Time Provider Department 09/27/23 DREW BUCKNER FVJEFFRYD During your visit today, we recorded the following information about you: Drew Buckner, Research Coordinator 09/27/2023 2:33 PM Signed IRB# [id number]: Vascular events in patients undergoing same-day nonCardiac surgery - [place] PI: Mary Rojas MD, LETY, FASA. Outcomes Research Department. Anesthesia [place]. [facility]. Aislinn Wheeler was unavailable at the listed phone number. We will attempt to contact the patient through [employer] message. Drew Esqueda Research Coordinator Research Coordinator Allergies As of Date: 09/27/2023 Noted Allergy Reaction LATEX 02/05/2020 2 - Rash Comments: Added based on information entered during case entry, please review and add reactions, type, and severity as needed Date Reviewed: 09/03/2023 Reviewed by: Chuck Kirk RN - Fully Assessed Reason for Visit: Research F/U [278] Prescriptions as of 09/27/2023 - pregabalin (LYRICA) [...] Encounter Status:Closed by DREW BUCKNER on 09/27/23 [facility] 09-26-[address] [facility] Telephone (FVPRAD) AISLINN WHEELER ([id number]) 1960 F Date Time Provider Department 09/26/23 DREW BUCKNER FVPRAD During your visit today, we recorded the following information about you: Drew Buckner, Research Coordinator 09/26/2023 3:32 PM Signed IRB# [id number]: Vascular events in patients undergoing same-day nonCardiac surgery - [place] PI: Mary Rojas MD, LETY, FASA. Outcomes Research Department. Anesthesia [place]. [facility]. Aislinn Wheeler was unavailable at the [...] Fully Assessed Reason for Visit: Research F/U [258] Prescriptions as of 09/26/2023 - pregabalin (LYRICA) [...] Encounter Status:Closed by DREW BUCKNER on 09/26/23 [facility] HNO ID: [id number] Author: ANTHONY BARROW MD Service: Hospital Medicine [...] Provider Department Center 10/06/2023 1:00 PM US [facility] BRITTANIE [place] [facility] Brittanie 10/06/2023 2:00 PM LAB [facility] [place] [facility] Brittanie 10/11/2023 1:50 PM [facility] ALLERGIES Allergen Reactions Latex Rash Added based [...] U-100 INSULIN SUBCUTANEO (more content not included)... [facility] 09-03-2023 [facility] HNO ID: [id number] Author: NICOL MILLIGAN RT(R) Service: Radiology Author [...] RT Michael(R) September 03, 2023 2:57 PM [facility] Basic metabolic 2000 panelon 09-03-2023 Anion gap [Moles/Vol] 10 mmol/L Normal 9-18 [facility] Comment on above: Order Comment: Speci men Type: BLOOD SPECIMEN [facility] Address: [address] [place] [address] Performed By: #### 2 4321-2 #### [facility] CLIA [id number] [address] [place] [address] [place] Calcium [Mass/Vol] 8.8 mg/dL Normal 8.5-10.2 [facility] Comment on above: Order Comment: Speci men Type: BLOOD SPECIMEN [facility] Address: [address] [place] [address] Performed By: #### 2 4321-2 #### [facility] CLIA [id number] [address] [place] [address] [place] Chloride [Moles/Vol] 103 mmol/L Normal 97-105 [facility] Comment on above: Order Comment: Speci men Type: BLOOD SPECIMEN [facility] Address: [address] [place] [address] Performed By: #### 2 4321-2 #### [facility] CLIA [id number] [address] [place] [address] [place] CO2 [Moles/Vol] 23 mmol/L Normal 22-30 [facility] Comment on above: Order Comment: Speci men Type: BLOOD SPECIMEN [facility] Address: [address] [place] [address] Performed By: #### 2 4321-2 #### [facility] CLIA [id number] [address] [place] [address] [place] Creatinine [Mass/Vol] 1.29 mg/dL High 0.58-0.96 [facility] Comment on above: Order Comment: Speci men Type: BLOOD SPECIMEN [facility] Address: [address] [place] [address] Performed By: #### 2 4321-2 #### [facility] CLIA [id number] [address] [place] [address] [place] Creatinine and Glomerular filtration rate.predicted panel (S/P/Bld) 46 mL/min/1.73m??? Low >=60 [facility] Comment on above: Order Comment: [place] Type: BLOOD SPECIMEN [facility] Address: [address] [place] [address] Result Comment: Donna mated Glomerular Filtration Rate [...] GFR. Performed By: #### 2 4321-2 #### [facility] CLIA [id number] [place] [address] [place] Glucose [Mass/Vol] 123 mg/dL High 74-99 [facility] Comment on above: Order Comment: [place] Type: BLOOD SPECIMEN [facility] Address: [address] [place] [address] Result Comment: The [place] [employer] Association (ADA) provides guidance for cutoff [...] Standards of Medical Care in Diabetes 2016, [place] [employer]. Diabetes Care. 2016.39(Suppl 1). Performed By: #### 2 4321-2 #### [facility] CLIA [id number] [address] [place] [address] [place] Potassium [Moles/Vol] 5.0 mmol/L Normal 3.7-5.1 [facility] Comment on above: Order Comment: [place] Type: BLOOD SPECIMEN [facility] Address: [address] [place] [address] Performed By: #### 2 4321-2 #### [facility] CLIA [id number] [address] [place] [address] [place] Sodium [Moles/Vol] 136 mmol/L Normal 136-144 [facility] Comment on above: Order Comment: Speci men Type: BLOOD SPECIMEN [facility] Address: [address] [place] [address] Performed By: #### 2 4321-2 #### [facility] CLIA [id number] [address] [place] [address] [place] Urea nitrogen [Mass/Vol] 22 mg/dL High 7-21 [facility] Comment on above: Order Comment: Speci men Type: BLOOD SPECIMEN [facility] Address: [address] [place] [address] Performed By: #### 2 4321-2 #### [facility] CLIA [id number] [address] [place] [address] OF [place] CBC panel Auto (Bld)on 09-03 Erythrocyte distribution width (RBC) [Ratio] 14.6 % Normal 11.5-15.0 [facility] Comment on above: Order Comment: Speci men Type: BLOOD SPECIMEN Ordering Facility: [facility] Address: [address] [place] [address] Performed By: #### B HB, 13564-3 #### [facility] CLIA [id number] [address] [place] [address] [place] Hematocrit (Bld) [Volume fraction] 28.7 % Low 36.0-46.0 [facility] Comment on above: Order Comment: Speci men Type: BLOOD SPECIMEN Ordering Facility: [facility] Address: [address] [place] [address] Performed By: #### B HB, 82492-5 #### [facility] CLIA [id number] [place] [address] [place] Hemoglobin (Bld) [Mass/Vol] 8.9 g/dL Low 11.5-15.5 [facility] Comment on above: Order Comment: Speci men Type: BLOOD SPECIMEN Ordering Facility: [facility] Address: [address] [place] [address] Performed By: #### B HB, #### [facility] CLIA [id number] [address] [place] [address] MCH (RBC) [Entitic mass] 24.1 pg Low 26.0-34.0 [facility] Comment on above: Order Comment: Speci men Type: BLOOD SPECIMEN Ordering Facility: [facility] Address: [address] [place] [address] Performed By: #### B HB, #### [facility] CLIA [id number] [address] [place] [address] STATES [facility] MCHC (RBC) [Mass/Vol] 31.0 g/dL Normal 30.5-36.0 [facility] Comment on above: Order Comment: Speci men Type: BLOOD SPECIMEN Ordering Facility: [facility] Address: [address] [place] [address] Performed By: #### B HB, #### [facility] CLIA [id number] [address] [place] [address] [place] MCV (RBC) [Entitic vol] 77.6 fL Low 80.0-100.0 [facility] Comment on above: Order Comment: Speci men Type: BLOOD SPECIMEN Ordering Facility: [facility] Address: [address] [place] [address] Performed By: #### B HB, #### [facility] CLIA [id number] [address] [place] [address] Nucleated RBC (Bld) [#/Vol] 10*3/uL Normal <0.01 [facility] Comment on above: Order Comment: Speci men Type: BLOOD SPECIMEN Ordering Facility: [facility] Address: [address] [place] [address] Performed By: #### B HB, #### [facility] CLIA [id number] [address] [place] [address] [place] Platelet mean volume (Bld) [Entitic vol] 10.8 fL Normal 9.0-12.7 [facility] Comment on above: Order Comment: Speci men Type: BLOOD SPECIMEN Ordering Facility: [facility] Address: [address] [place] [address] Performed By: #### B [place], 67109-3 #### [facility] CLIA [id number] [address] [place] [address] [place] Platelets (Bld) [#/Vol] 334 10*3/uL Normal 150-400 [facility] Comment on above: Order Comment: Speci men Type: BLOOD SPECIMEN Ordering Facility: [facility] Address: [address] [place] [address] Performed By: #### [place], [address]-8 #### [facility] CLIA [id number] [address] [place] [address] [place] RBC (Bld) [#/Vol] 3.70 10*6/uL Low 3.90-5.20 [facility] Comment on above: Order Comment: Speci men Type: BLOOD SPECIMEN Ordering Facility: [facility] Address: [address] [place] [address] Performed By: #### [place], [address]-9 #### [facility] CLIA [id number] [address] [place] [address] [place] WBC (Bld) [#/Vol] 6.44 10*3/uL Normal 3.70-11.00 [facility] Comment on above: Order Comment: Speci men Type: BLOOD SPECIMEN Ordering Facility: [facility] Address: [address] [place] [address] Performed By: #### B HB, 51621-7 #### [facility] CLIA [id number] [address] [place] [address] [place] FOOT WO [...] NO EVIDENCE OF OSTEOMYELITIS ON THIS EXAMINATION. [facility] Transcribe Date/Time: Sep 03 2023 11:22P Dictated by : FINESSE BUTLER MD This examination was interpreted and the report reviewed and electronically signed by: FINESSE BUTLER MD on Sep 03 2023 11:27PM EST [id number] Normal [facility] Basic metabolic 2000 panelon 09-02-2023 Anion gap [Moles/Vol] 9 mmol/L Normal 9-18 [facility] Comment on above: Order Comment: Simonai reinier Type: BLOOD SPECIMEN Ordering Facility: [facility] Address: [address] [place] [address] Performed By: #### B HB, 53129-8 #### [facility] CLIA [id number] [address] [place] [address] [place] Calcium [Mass/Vol] 8.1 mg/dL Low 8.5-10.2 [facility] Comment on above: Order Comment: Simonai men Type: BLOOD SPECIMEN Ordering Facility: [facility] Address: [address] [place] [address] Performed By: #### B HB, 91018-4 #### [facility] CLIA [id number] [address] [place] [address] [place] Chloride [Moles/Vol] 106 mmol/L High 97-105 [facility] Comment on above: Order Comment: Speci men Type: BLOOD SPECIMEN Ordering Facility: [facility] Address: [address] [place] [address] Performed By: #### B HB, #### [facility] CLIA [id number] [address] [place] [address] [place] CO2 [Moles/Vol] 22 mmol/L Normal 22-30 [facility] Comment on above: Order Comment: Speci men Type: BLOOD SPECIMEN Ordering Facility: [facility] Address: [address] [place] [address] Performed By: #### B HB, #### [facility] CLIA [id number] [address] [place] [address] Creatinine [Mass/Vol] 1.30 mg/dL High 0.58-0.96 [facility] Comment on above: Order Comment: Speci men Type: BLOOD SPECIMEN Ordering Facility: [facility] Address: [address] [place] [address] Performed By: #### B HB, #### [facility] CLIA [id number] [address] [place] [address] Creatinine and Glomerular filtration rate.predicted panel (S/P/Bld) 46 mL/min/1.73m??? Low >=60 [facility] Comment on above: Order Comment: Speci men Type: BLOOD SPECIMEN Ordering Facility: [facility] Address: [address] [place] [address] Result Comment: Donna mated Glomerular Filtration Rate [...] actual GFR. Performed By: #### B HB, 00286-2 #### [facility] CLIA [id number] [address] [place] [address] [place] Glucose [Mass/Vol] 192 mg/dL High 74-99 [facility] Comment on above: Order Comment: [place] Type: BLOOD SPECIMEN Ordering Facility: [facility] Address: [address] [place] [address] Result Comment: The [place] [employer] (ADA) provides guidance for cutoff [...] Standards of Medical Care in Diabetes 2016, [place] [employer]. Diabetes Care. 2016.39(Suppl 1). Performed By: #### B HB, 99313-3 #### [facility] CLIA [id number] [address] [place] [address] [place] Potassium [Moles/Vol] 4.9 mmol/L Normal 3.7-5.1 [facility] Comment on above: Order Comment: [place] Type: BLOOD SPECIMEN Ordering Facility: [facility] Address: [address] [place] [address] Performed By: #### B HB, 87008-7 #### [facility] CLIA [id number] [address] [place] [address] [place] Sodium [Moles/Vol] 137 mmol/L Normal 136-144 [facility] Comment on above: Order Comment: [place] Type: BLOOD SPECIMEN Ordering Facility: [facility] Address: [address] [place] [address] Performed By: #### B HB, 68729-8 #### [facility] CLIA [id number] [address] [place] [address] [place] Urea nitrogen [Mass/Vol] 17 mg/dL Normal 7-21 [facility] Comment on above: Order Comment: [place] Type: BLOOD SPECIMEN Ordering Facility: [facility] Address: [address] [place] [address] Performed By: #### B HB, #### [facility] CLIA [id number] [address] [place] [address] [place] CBC panel Auto (Bld)on 09-02 Erythrocyte distribution width (RBC) [Ratio] 14.6 % Normal 11.5-15.0 [facility] Comment on above: Order Comment: Speci men Type: BLOOD SPECIMEN Ordering Facility: [facility] Address: [address] [place] [address] Performed By: #### B HB, 58963-3 #### [facility] CLIA [id number] [address] [place] [address] [place] Hematocrit (Bld) [Volume fraction] 28.4 % Low 36.0-46.0 [facility] Comment on above: Order Comment: Speci men Type: BLOOD SPECIMEN Ordering Facility: [facility] Address: [address] [place] [address] Performed By: #### B HB, #### [facility] CLIA [id number] [address] [place] [address] [place] Hemoglobin (Bld) [Mass/Vol] 8.9 g/dL Low 11.5-15.5 [facility] Comment on above: Order Comment: Speci men Type: BLOOD SPECIMEN Ordering Facility: [facility] Address: [address] [place] [address] Performed By: #### B HB, #### [facility] CLIA [id number] [address] [place] [address] [place] MCH (RBC) [Entitic mass] 24.2 pg Low 26.0-34.0 [facility] Comment on above: Order Comment: Speci men Type: BLOOD SPECIMEN Ordering Facility: [facility] Address: [address] [place] [address] Performed By: #### B HB, 15270-4 #### [facility] CLIA [id number] [address] [place] [address] [place] MCHC (RBC) [Mass/Vol] 31.3 g/dL Normal 30.5-36.0 [facility] Comment on above: Order Comment: Speci men Type: BLOOD SPECIMEN Ordering Facility: [facility] Address: [address] [place] [address] Performed By: #### B HB, #### [facility] CLIA [id number] [address] [place] [address] [place] MCV (RBC) [Entitic vol] 77.2 fL Low 80.0-100.0 [facility] Comment on above: Order Comment: Speci men Type: BLOOD SPECIMEN Ordering Facility: [facility] Address: [address] [place] [address] Performed By: #### B HB, #### [facility] CLIA [id number] [address] [place] [address] [place] Nucleated RBC (Bld) [#/Vol] 10*3/uL Normal <0.01 [facility] Comment on above: Order Comment: Speci men Type: BLOOD SPECIMEN Ordering Facility: [facility] Address: [address] [place] [address] Performed By: #### B HB, #### [facility] CLIA [id number] [address] [place] [address] [place] Platelet mean volume (Bld) [Entitic vol] 10.4 fL Normal 9.0-12.7 [facility] Comment on above: Order Comment: Speci men Type: BLOOD SPECIMEN Ordering Facility: [facility] Address: [address] [place] [address] Performed By: #### B HB, #### [facility] CLIA [id number] [address] [place] [address] [place] Platelets (Bld) [#/Vol] 285 10*3/uL Normal 150-400 [facility] Comment on above: Order Comment: Speci men Type: BLOOD SPECIMEN Ordering Facility: [facility] Address: [address] [place] [address] Performed By: #### B HB, #### [facility] CLIA [id number] [address] [place] [address] [place] RBC (Bld) [#/Vol] 3.68 10*6/uL Low 3.90-5.20 [facility] Comment on above: Order Comment: Speci men Type: BLOOD SPECIMEN Ordering Facility: [facility] Address: [address] [place] [address] Performed By: #### B HB, 08781-8 #### [facility] CLIA [id number] [address] [place] [address] [place] WBC (Bld) [#/Vol] 5.94 10*3/uL Normal 3.70-11.00 [facility] Comment on above: Order Comment: Speci men Type: BLOOD SPECIMEN Ordering Facility: [facility] Address: [address] [place] [address] Performed By: #### B HB, 96476-4 #### [facility] CLIA [id number] [address] [place] [address] [place] Bacteria Ur Culton 4 Bacteria identified Cx Nom (U) CULTURE, URINE: No growth (<1,000 CFU/ml) Normal [facility] Comment on above: Performed By: #### 6 30-4 #### [facility] CLIA [id number] [address] [facility] [id number] [address] [place] Basic metabolic 2000 panelon 09-01-2023 Anion gap [Moles/Vol] 10 mmol/L Normal 9-18 [facility] Comment on above: Order Comment: Speci men Type: BLOOD SPECIMEN Ordering Facility: [facility] Address: [address] [place] [address] Performed By: #### B HB, 04564-5 #### [facility] CLIA [id number] [address] [place] [address] [place] Calcium [Mass/Vol] 7.9 mg/dL Low 8.5-10.2 [facility] Comment on above: Order Comment: Speci men Type: BLOOD SPECIMEN Ordering Facility: [facility] Address: [address] [place] [address] Performed By: #### B HB, 03549-5 #### [facility] CLIA [id number] [address] [place] [address] [place] Chloride [Moles/Vol] 108 mmol/L High 97-105 [facility] Comment on above: Order Comment: Speci men Type: BLOOD SPECIMEN Ordering Facility: [facility] Address: [address] [place] [address] Performed By: #### B HB, 50064-9 #### [facility] CLIA [id number] [address] [place] [address] [place] CO2 [Moles/Vol] 20 mmol/L Low 22-30 [facility] Comment on above: Order Comment: Speci men Type: BLOOD SPECIMEN Ordering Facility: [facility] Address: [address] [place] [address] Performed By: #### B HB, #### [facility] CLIA [id number] [address] [place] [address] [place] Creatinine [Mass/Vol] 1.39 mg/dL High 0.58-0.96 [facility] Comment on above: Order Comment: Speci men Type: BLOOD SPECIMEN Ordering Facility: [facility] Address: [address] [place] [address] Performed By: #### B HB, 03860-9 #### [facility] CLIA [id number] [address] [place] [address] [place] Creatinine and Glomerular filtration rate.predicted panel (S/P/Bld) 42 mL/min/1.73m??? Low >=60 [facility] Comment on above: Order Comment: Speci men Type: BLOOD SPECIMEN Ordering Facility: [facility] Address: [address] [place] [address] Result Comment: Donna mated Glomerular Filtration Rate [...] GFR. Performed By: #### B HB, #### [facility] CLIA [id number] [address] [place] [address] [place] Glucose [Mass/Vol] 74 mg/dL Normal 74-99 [facility] Comment on above: Order Comment: [place] Type: BLOOD SPECIMEN Ordering Facility: [facility] Address: [address] [place] [address] Result Comment: The [place] [employer] (ADA) provides guidance for cutoff [...] Standards of Medical Care in Diabetes 2016, [place] [employer]. Diabetes Care. 2016.39(Suppl 1). Performed By: #### B HB, #### [facility] CLIA [id number] [address] [place] [address] [place] Potassium [Moles/Vol] 4.7 mmol/L Normal 3.7-5.1 [facility] Comment on above: Order Comment: [place] Type: BLOOD SPECIMEN Ordering Facility: [facility] Address: [address] [place] [address] Performed By: #### B HB, #### [facility] CLIA [id number] [address] [place] [address] [place] Sodium [Moles/Vol] 138 mmol/L Normal 136-144 [facility] Comment on above: Order Comment: [place] Type: BLOOD SPECIMEN Ordering Facility: [facility] Address: [address] [place] [address] Performed By: #### B HB, #### [facility] CLIA [id number] [address] [place] [address] [place] Urea nitrogen [Mass/Vol] 25 mg/dL High 7-21 [facility] Comment on above: Order Comment: Speci men Type: BLOOD SPECIMEN Ordering Facility: [facility] Address: [address] [place] [address] Performed By: #### B HB, #### [facility] CLIA [id number] [address] [place] [address] [place] CBC panel Auto (Bld)on 09-01 Erythrocyte distribution width (RBC) [Ratio] 14.7 % Normal 11.5-15.0 [facility] Comment on above: Order Comment: Speci men Type: BLOOD SPECIMEN Ordering Facility: [facility] Address: [address] [place] [address] Performed By: #### B HB, #### [facility] CLIA [id number] [address] [place] [address] [place] Hematocrit (Bld) [Volume fraction] 29.4 % Low 36.0-46.0 [facility] Comment on above: Order Comment: Speci men Type: BLOOD SPECIMEN Ordering Facility: [facility] Address: [address] [place] [address] Performed By: #### B HB, #### [facility] CLIA [id number] [address] [place] [address] [place] Hemoglobin (Bld) [Mass/Vol] 9.1 g/dL Low 11.5-15.5 [facility] Comment on above: Order Comment: Speci men Type: BLOOD SPECIMEN Ordering Facility: [facility] Address: [address] [place] [address] Performed By: #### B HB, #### [facility] CLIA [id number] [address] [place] [address] [place] MCH (RBC) [Entitic mass] 24.4 pg Low 26.0-34.0 [facility] Comment on above: Order Comment: Speci men Type: BLOOD SPECIMEN Ordering Facility: [facility] Address: [address] [place] [address] Performed By: #### B HB, #### [facility] CLIA [id number] [address] [place] [address] [place] MCHC (RBC) [Mass/Vol] 31.0 g/dL Normal 30.5-36.0 [facility] Comment on above: Order Comment: Speci men Type: BLOOD SPECIMEN Ordering Facility: [facility] Address: [address] [place] [address] Performed By: #### B HB, 08925-8 #### [facility] CLIA [id number] [address] [place] [address] [place] MCV (RBC) [Entitic vol] 78.8 fL Low 80.0-100.0 [facility] Comment on above: Order Comment: Speci men Type: BLOOD SPECIMEN Ordering Facility: [facility] Address: [address] [place] [address] Performed By: #### B HB, #### [facility] CLIA [id number] [address] [place] [address] [place] Nucleated RBC (Bld) [#/Vol] 10*3/uL Normal <0.01 [facility] Comment on above: Order Comment: Speci men Type: BLOOD SPECIMEN Ordering Facility: [facility] Address: [address] [place] [address] Performed By: #### B HB, #### [facility] CLIA [id number] [address] [place] [address] [place] Platelet mean volume (Bld) [Entitic vol] 10.8 fL Normal 9.0-12.7 [facility] Comment on above: Order Comment: Speci men Type: BLOOD SPECIMEN Ordering Facility: [facility] Address: [address] [place] [address] Performed By: #### B HB, 65945-7 #### [facility] CLIA [id number] [address] [place] [address] [place] Platelets (Bld) [#/Vol] 275 10*3/uL Normal 150-400 [facility] Comment on above: Order Comment: Speci men Type: BLOOD SPECIMEN Ordering Facility: [facility] Address: [address] [place] [address] Performed By: #### B HB, 73093-4 #### [facility] CLIA [id number] [address] [place] [id number] [place] RBC (Bld) [#/Vol] 3.73 10*6/uL Low 3.90-5.20 [facility] Comment on above: Order Comment: Speci men Type: BLOOD SPECIMEN Ordering Facility: [facility] Address: [address] [place] [address] Performed By: #### B HB, 23098-9 #### [facility] CLIA [id number] [address] [place] [id number] [place] WBC (Bld) [#/Vol] 7.48 10*3/uL Normal 3.70-11.00 [facility] Comment on above: Order Comment: Speci men Type: BLOOD SPECIMEN Order[facility] Facility: [facility] Address: [address] [place] [address] Performed By: #### B HB, 99863-1 #### [facility] CLIA [id number] [address] [id number] [facility] [place] CONSULTon 09-01-2023 CONSULT HNO ID: [id number] Author: NORMAN ROUSSEAU RN Service: ? Author [...] 2023 TIME: 10:44 AM PAGER/CONTACT #: Normal [facility] Magnesium SerPl-mCncon 09-01 Magnesium [Mass/Vol] 1.5 mg/dL Low 1.7-2.3 [facility] Comment on above: Order Comment: Speci men Type: BLOOD SPECIMEN Ordering Facility: [facility] Address: [address] [place] [address] Performed By: #### B HB, #### [facility] CLIA [id number] [address] [place] [address] [place] URINALYSIS, REFLEX MICROSCOP ICon 09-01-2023 Bacteria LM.HPF (Urine sed) [#/Area] Few Abnormal None Seen [facility] Comment on above: Order Comment: Speci men Type: BLOOD SPECIMEN Ordering Facility: [facility] Address: [address] [place] [address] Performed By: #### B HB, #### [facility] CLIA [id number] [address] [place] [address] [place] Bilirubin Ql (U) Negative Normal Negative [facility] Comment on above: Order Comment: Speci men Type: BLOOD SPECIMEN Ordering Facility: [facility] Address: [address] [place] [address] Performed By: #### B HB, #### [facility] CLIA [id number] [address] [place] [address] [place] Clarity (Unsp spec) Turbid Abnormal Clear [facility] Comment on above: Order Comment: Speci men Type: BLOOD SPECIMEN Ordering Facility: [facility] Address: [address] [place] [address] Performed By: #### B HB, #### [facility] CLIA [id number] [address] [place] [address] [place] Color (U) Light Yellow Normal Yellow [facility] Comment on above: Order Comment: Speci men Type: BLOOD SPECIMEN Ordering Facility: [facility] Address: [address] [place] [address] Performed By: #### B HB, #### [facility] CLIA [id number] [address] [place] [address] [place] Epithelial cells LM.HPF (Urine sed) [#/Area] Few Normal [facility] Comment on above: Order Comment: Speci men Type: BLOOD SPECIMEN Ordering Facility: [facility] Address: [address] [place] [address] Performed By: #### B HB, 94411-0 #### [facility] CLIA [id number] [address] [place] [address] Glucose Test strip (U) [Mass/Vol] Negative Normal Trace, Negative [facility] Comment on above: Order Comment: Speci men Type: BLOOD SPECIMEN Ordering Facility: [facility] Address: [address] [place] [address] Performed By: #### B HB, #### [facility] CLIA [id number] [address] [place] [address] Hemoglobin Ql (U) 1+ Abnormal Negative, Trace [facility] Comment on above: Order Comment: Speci men Type: BLOOD SPECIMEN Ordering Facility: [facility] Address: [address] [place] [address] Performed By: #### B HB, #### [facility] CLIA [id number] [address] [place] [address] Ketones Ql (U) Negative Normal Negative, Trace [facility] Comment on above: Order Comment: Speci men Type: BLOOD SPECIMEN Ordering Facility: [facility] Address: [address] [place] [address] Performed By: #### B HB, #### [facility] CLIA [id number] [address] [place] [address] Leukocyte esterase Test strip Ql (U) 500 Yuan/uL Abnormal Negative, 25 Yuan/uL [facility] Comment on above: Order Comment: Speci men Type: BLOOD SPECIMEN Ordering Facility: [facility] Address: [address] [place] [address] Performed By: #### B HB, #### [facility] CLIA [id number] [address] [place] [address] STATES [facility] Nitrite Ql (U) Negative Normal Negative [facility] Comment on above: Order Comment: Speci men Type: BLOOD SPECIMEN Ordering Facility: [facility] Address: [address] [place] [address] Performed By: #### B HB, #### [facility] CLIA [id number] [address] [place] [address] [place] pH (U) 6.0 [pH] Normal 5.0-8.0 [facility] Comment on above: Order Comment: Speci men Type: BLOOD SPECIMEN Ordering Facility: [facility] Address: [address] [place] [address] Performed By: #### B HB, #### [facility] CLIA [id number] [address] [place] [address] [place] Protein (U) [Mass/Vol] 1+ Abnormal Trace, Negative [facility] Comment on above: Order Comment: Speci men Type: BLOOD SPECIMEN Ordering Facility: [facility] Address: [address] [place] [address] Performed By: #### B HB, #### [facility] CLIA [id number] [address] [place] [address] [place] RBC LM.HPF (Urine sed) [#/Area] /[HPF] Abnormal 0-3 /HPF [facility] Comment on above: Order Comment: Speci men Type: BLOOD SPECIMEN Ordering Facility: [facility] Address: [address] [place] [address] Performed By: #### B HB, #### [facility] CLIA [id number] [address] [place] [address] [place] Specific gravity (U) [Rel density] 1.011 Normal 1.005-1.030 [facility] Comment on above: Order Comment: Speci men Type: BLOOD SPECIMEN Ordering Facility: [facility] Address: [address] [place] [address] Performed By: #### B HB, #### [facility] CLIA [id number] [address] [place] [address] [place] Urobilinogen Ql (U) Negative Normal Negative [facility] Comment on above: Order Comment: Speci men Type: BLOOD SPECIMEN Ordering Facility: [facility] Address: [address] [place] [address] Performed By: #### B HB, #### [facility] CLIA [id number] [address] [place], [place] [address] [place] WBC LM.HPF (Urine sed) [#/Area] /[HPF] Abnormal 0-5 /HPF [facility] Comment on above: Order Comment: Speci men Type: BLOOD SPECIMEN Ordering Facility: [facility] Address: [address] [place] [address] Performed By: #### B , 46282-8 #### [facility] CLIA [id number] [address] [place] [address] [place] ALLIED HEALTHon 08-31-2023 ALLIED HEALTH HNO ID: [id number] Author: LAKISHA LITTLE RT(R) Service: ? Author [...] Chriss(R) August 31, 2023 4:44 AM Normal [facility] Bacteria Bld Culton 08-31-19 24 Bacteria identified Cx Nom (Bld) CULTURE, BLOOD: No growth 5 days Normal [facility] Comment on above: Performed By: #### 6 00-7 ####[facility] [id number] [address] [place] Bacteria Ur Culton [...] technique or straight catheterization for???urine???collectio n. Normal [facility] Comment on above: Performed By: #### 6 30-4 #### [facility] CLIA [id number] [address] [facility] [id number] [address] [place] CBC W Auto Differential pane l (Bld)on 08-31-2023 Basophils (Bld) [#/Vol] 0.03 10*3/uL Normal <0.11 [facility] Comment on above: Order Comment: Speci men Type: BLOOD SPECIMEN Ordering Facility: [facility] Address: [address] [place] [address] Performed By: #### B HB, #### [facility] CLIA [id number] [place] [address] [place] Basophils/100 WBC (Bld) 0.3 % Normal [facility] Comment on above: Order Comment: Speci men Type: BLOOD SPECIMEN Ordering Facility: [facility] Address: [address] [place] [address] Performed By: #### B HB, #### [facility] CLIA [id number] [address] [place] [address] [place] Differential cell count method Nom (Bld) Auto Normal [facility] Comment on above: Order Comment: Speci men Type: BLOOD SPECIMEN Ordering Facility: [facility] Address: [address] [place] [address] Performed By: #### B HB, #### [facility] CLIA [id number] [address] [place] [address] [place] Eosinophils (Bld) [#/Vol] 10*3/uL Normal <0.46 [facility] Comment on above: Order Comment: Speci men Type: BLOOD SPECIMEN Ordering Facility: [facility] Address: [address] [place] [address] Performed By: #### B HB, #### [facility] CLIA [id number] [address] [place] [address] [place] Eosinophils/100 WBC (Bld) 0.1 % Normal [facility] Comment on above: Order Comment: Speci men Type: BLOOD SPECIMEN Ordering Facility: [facility] Address: [address] [place] [address] Performed By: #### B HB, #### [facility] CLIA [id number] [address] [place] [address] [place] Erythrocyte distribution width (RBC) [Ratio] 14.5 % Normal 11.5-15.0 [facility] Comment on above: Order Comment: Speci men Type: BLOOD SPECIMEN Ordering Facility: [facility] Address: [address] [place] [address] Performed By: #### B HB, #### [facility] CLIA [id number] [address] [place] [address] [place] Hematocrit (Bld) [Volume fraction] 31.5 % Low 36.0-46.0 [facility] Comment on above: Order Comment: Speci men Type: BLOOD SPECIMEN Ordering Facility: [facility] Address: [address] [place] [address] Performed By: #### B HB, #### [facility] CLIA [id number] [address] [place] [address] [place] Hemoglobin (Bld) [Mass/Vol] 10.0 g/dL Low 11.5-15.5 [facility] Comment on above: Order Comment: Speci men Type: BLOOD SPECIMEN Ordering Facility: [facility] Address: [address] [place] [address] Performed By: #### B HB, #### [facility] CLIA [id number] [address] [place] [address] [place] Immature granulocytes (Bld) [#/Vol] 0.06 10*3/uL Normal <0.10 [facility] Comment on above: Order Comment: Speci men Type: BLOOD SPECIMEN Ordering Facility: [facility] Address: [address] [place] [address] Performed By: #### B HB, #### [facility] CLIA [id number] [address] [place] [address] [place] Immature granulocytes/100 WBC (Bld) 0.7 % Normal [facility] Comment on above: Order Comment: Speci men Type: BLOOD SPECIMEN Ordering Facility: [facility] Address: [address] [place] [address] Performed By: #### B HB, #### [facility] CLIA [id number] [address] [place] [address] [place] Lymphocytes (Bld) [#/Vol] 1.67 10*3/uL Normal 1.00-4.00 [facility] Comment on above: Order Comment: Speci men Type: BLOOD SPECIMEN Ordering Facility: [facility] Address: [address] [place] [address] Performed By: #### B HB, #### [facility] CLIA [id number] [address] [place] [address] [place] Lymphocytes/100 WBC (Bld) 18.8 % Normal [facility] Comment on above: Order Comment: Speci men Type: BLOOD SPECIMEN Ordering Facility: [facility] Address: [address] [place] [address] Performed By: #### B HB, #### [facility] CLIA [id number] [address] [place] [address] [place] MCH (RBC) [Entitic mass] 24.5 pg Low 26.0-34.0 [facility] Comment on above: Order Comment: Speci men Type: BLOOD SPECIMEN Ordering Facility: [facility] Address: [address] [place] [address] Performed By: #### B HB, 67447-0 #### [facility] CLIA [id number] [address] [place] [address] [place] MCHC (RBC) [Mass/Vol] 31.7 g/dL Normal 30.5-36.0 [facility] Comment on above: Order Comment: Speci men Type: BLOOD SPECIMEN Ordering Facility: [facility] Address: [address] [place] [address] Performed By: #### B HB, #### [facility] CLIA [id number] [address] [place] [address] [place] MCV (RBC) [Entitic vol] 77.2 fL Low 80.0-100.0 [facility] Comment on above: Order Comment: Speci men Type: BLOOD SPECIMEN Ordering Facility: [facility] Address: [address] [place] [address] Performed By: #### B HB, #### [facility] CLIA [id number] [address] [place] [address] [place] Monocytes (Bld) [#/Vol] 0.71 10*3/uL Normal <0.87 [facility] Comment on above: Order Comment: Speci men Type: BLOOD SPECIMEN Ordering Facility: [facility] Address: [address] [place] [address] Performed By: #### B HB, #### [facility] CLIA [id number] [address] [place] [address] [place] Monocytes/100 WBC (Bld) 8.0 % Normal [facility] Comment on above: Order Comment: Speci men Type: BLOOD SPECIMEN Ordering Facility: [facility] Address: [address] [place] [address] Performed By: #### B HB, #### [facility] CLIA [id number] [address] [place] [address] [place] Neutrophils (Bld) [#/Vol] 6.39 10*3/uL Normal 1.45-7.50 [facility] Comment on above: Order Comment: Speci men Type: BLOOD SPECIMEN Ordering Facility: [facility] Address: [address] [place] [address] Performed By: #### B HB, #### [facility] CLIA [id number] [address] [place] [address] [place] Neutrophils/100 WBC (Bld) 72.1 % Normal [facility] Comment on above: Order Comment: Speci men Type: BLOOD SPECIMEN Ordering Facility: [facility] Address: [address] [place] [address] Performed By: #### B HB, #### [facility] CLIA [id number] [address] [place] [address] [place] Nucleated RBC (Bld) [#/Vol] 10*3/uL Normal <0.01 [facility] Comment on above: Order Comment: Speci men Type: BLOOD SPECIMEN Ordering Facility: [facility] Address: [address] [place] [address] Performed By: #### B HB, #### [facility] CLIA [id number] [address] [place] [address] [place] Nucleated RBC/100 WBC (Bld) [Ratio] 0.0 /100 WBC Normal [facility] Comment on above: Order Comment: Speci men Type: BLOOD SPECIMEN Ordering Facility: [facility] Address: [address] [place] [address] Performed By: #### B HB, #### [facility] CLIA [id number] [address] [place] [address] [place] Platelet mean volume (Bld) [Entitic vol] 11.3 fL Normal 9.0-12.7 [facility] Comment on above: Order Comment: Speci men Type: BLOOD SPECIMEN Ordering Facility: [facility] Address: [address] [place] [address] Performed By: #### B HB, #### [facility] CLIA [id number] [address] [place] [address] [place] Platelets (Bld) [#/Vol] 316 10*3/uL Normal 150-400 [facility] Comment on above: Order Comment: Speci men Type: BLOOD SPECIMEN Ordering Facility: [facility] Address: [address] [place] [address] Performed By: #### B HB, #### [facility] CLIA [id number] [address] [place] [address] [place] RBC (Bld) [#/Vol] 4.08 10*6/uL Normal 3.90-5.20 [facility] Comment on above: Order Comment: Speci men Type: BLOOD SPECIMEN Ordering Facility: [facility] Address: [address] [place] [address] Performed By: #### B HB, #### [facility] CLIA [id number] [address] [place] [address] [place] WBC (Bld) [#/Vol] 8.87 10*3/uL Normal 3.70-11.00 [facility] Comment on above: Order Comment: Speci men Type: BLOOD SPECIMEN Ordering Facility: [facility] Address: [address] [place] [address] Performed By: #### B HB, #### [facility] CLIA [id number] [address] [place] [address] [place] Comprehensive metabolic 2000 panelon 08-31-2023 Albumin [Mass/Vol] 3.7 g/dL Low 3.9-4.9 [facility] Comment on above: Order Comment: Speci men Type: BLOOD SPECIMEN Ordering Facility: [facility] Address: [address] [place] [address] Performed By: #### B HB, #### [facility] CLIA [id number] [address] [place] [address] [place] ALP [Catalytic activity/Vol] 99 U/L Normal 34-123 [facility] Comment on above: Order Comment: Speci men Type: BLOOD SPECIMEN Ordering Facility: [facility] Address: [address] [place] [address] Performed By: #### B HB, #### [facility] CLIA [id number] [address] [place] [address] [place] ALT [Catalytic activity/Vol] U/L Low 7-38 [facility] Comment on above: Order Comment: Speci men Type: BLOOD SPECIMEN Ordering Facility: [facility] Address: [address] [place] [address] Performed By: #### B HB, 47805-4 #### [facility] CLIA [id number] [address] [place] [address] [place] Anion gap [Moles/Vol] 12 mmol/L Normal 9-18 [facility] Comment on above: Order Comment: Speci men Type: BLOOD SPECIMEN Ordering Facility: [facility] Address: [address] [place] [address] Performed By: #### B HB, #### [facility] CLIA [id number] [address] [place] [address] [place] AST [Catalytic activity/Vol] 7 U/L Low 13-35 [facility] Comment on above: Order Comment: Speci men Type: BLOOD SPECIMEN Ordering Facility: [facility] Address: [address] [place] [address] Performed By: #### B HB, #### [facility] CLIA [id number] [address] [place] [address] [place] Bilirubin [Mass/Vol] 0.3 mg/dL Normal 0.2-1.3 [facility] Comment on above: Order Comment: Speci men Type: BLOOD SPECIMEN Ordering Facility: [facility] Address: [address] [place] [address] Performed By: #### B HB, #### [facility] CLIA [id number] [address] [place] [address] [place] Calcium [Mass/Vol] 8.7 mg/dL Normal 8.5-10.2 [facility] Comment on above: Order Comment: Speci men Type: BLOOD SPECIMEN Ordering Facility: [facility] Address: [address] [place] [address] Performed By: #### B HB, #### [facility] CLIA [id number] [address] [place] [address] [place] Chloride [Moles/Vol] 99 mmol/L Normal 97-105 [facility] Comment on above: Order Comment: Speci men Type: BLOOD SPECIMEN Ordering Facility: [facility] Address: [address] [place] [address] Performed By: #### B HB, #### [facility] CLIA [id number] [address] [place] [address] [place] CO2 [Moles/Vol] 19 mmol/L Low 22-30 [facility] Comment on above: Order Comment: Simonai reinier Type: BLOOD SPECIMEN Ordering Facility: [facility] Address: [address] [place] [address] Performed By: #### B HB, 90837-4 #### [facility] CLIA [id number] [address] [place] [address] [place] Creatinine [Mass/Vol] 2.15 mg/dL High 0.58-0.96 [facility] Comment on above: Order Comment: Simonai men Type: BLOOD SPECIMEN Ordering Facility: [facility] Address: [address] [place] [address] Performed By: #### B HB, 53832-5 #### [facility] CLIA [id number] [address] [place] [address] OF [facility] Creatinine and Glomerular filtration rate.predicted panel (S/P/Bld) 25 mL/min/1.73m??? Low >=60 [facility] Comment on above: Order Comment: Speci men Type: BLOOD SPECIMEN Ordering Facility: [facility] Address: [address] [place] [address] Result Comment: Donna mated Glomerular Filtration Rate [...] actual GFR. Performed By: #### B HB, 50781-9 #### [facility] CLIA [id number] [address] [place] [address] [place] Glucose [Mass/Vol] 428 mg/dL High 74-99 [facility] Comment on above: Order Comment: Simonai men Type: BLOOD SPECIMEN Ordering Facility: [facility] Address: [address] [place] [address] Result Comment: The [place] [employer] (ADA) provides guidance for cutoff [...] Standards of Medical Care in Diabetes 2016, [place] [employer]. Diabetes Care. 2016.39(Suppl 1). Performed By: #### B HB, 23980-4 #### [facility] CLIA [id number] [address] [place] [address] [place] Potassium [Moles/Vol] 5.2 mmol/L High 3.7-5.1 [facility] Comment on above: Order Comment: [place] Type: BLOOD SPECIMEN Ordering Facility: [facility] Address: [address] [place] [address] Performed By: #### B HB, 97727-4 #### [facility] CLIA [id number] [address] [place] [address] [place] Protein [Mass/Vol] 9.1 g/dL High 6.3-8.0 [facility] Comment on above: Order Comment: [place] Type: BLOOD SPECIMEN Ordering Facility: [facility] Address: [address] [place] [address] Performed By: #### B HB, 11130-4 #### [facility] CLIA [id number] [address] [place] [address] [place] Sodium [Moles/Vol] 130 mmol/L Low 136-144 [facility] Comment on above: Order Comment: [place] Type: BLOOD SPECIMEN Ordering Facility: [facility] Address: [address] [place] [address] Performed By: #### B HB, 35740-8 #### [facility] CLIA [id number] [address] [place] [address] [place] Urea nitrogen [Mass/Vol] 39 mg/dL High 7-21 [facility] Comment on above: Order Comment: Speci men Type: BLOOD SPECIMEN Ordering Facility: [facility] Address: [address] [place], [place] [address] [address] Performed By: #### B , 82770-2 #### [facility] CLIA [id number] [address] [place] [address] [place] ECG COMPLETEon 08-31-2023 ECG COMPLETE Ventricular Rate : 7 1 BPM Atrial Rate : 71 BPM P-R Interval : 166 ms QRS Duration : 80 ms Q-T Interval : 396 ms QTC Calculation(Bazett) : 431 ms Calculated P Udell : 82 degrees Calculated R Udell : 71 degrees Calculated T Udell : 48 degrees Sinus rhythm Normal ECG NO STEMI. 0752 Confirmed by MD DE LEON MICHAEL ([id number]), purchasing expeditor THERESA SEAY ([id number]) on 08/31/2023 1:24:15 PM NAME : LIAMAISLINN PID : [id number] : 1960 Gender : Female Race : ORD : [id number] Procedure Date : Aug 31 2023 07:16:42 Edit Date : Aug 31 2023 13:24:16 Diagnosis: Sinus rhythm Normal ECG NO STEMI. 0752 Confirmed by MD DE LEON MICHAEL ([id number]), purchasing expeditor THERESA SEAY ([id number]) on 08/31/2023 1:24:15 PM Test Reason : Chest Pain Location : 402 : FVED fved05 Overread By : MD DE LEON MICHAEL Edited By : THERESA SEAY Referred By : , Acquired by : [id number], Normal [facility] ECG COMPLETE Ventricular Rate : 8 8 BPM Atrial Rate : 88 BPM P-R Interval : 153 ms QRS Duration : 78 ms Q-T Interval : 370 ms QTC Calculation(Bazett) : 448 ms Calculated P Udell : 85 degrees Calculated R Udell : 69 degrees Calculated T Udell : 62 degrees Sinus rhythm Normal ECG NO STEMI. 0604 Confirmed by KASIE SANDOVAL MD ([id number]), purchasing expeditor THERESA SEAY ([id number]) on 08/31/2023 1:02:55 PM NAME : LIAMAISLINN PID : [id number] : 1960 Gender : Female Race : ORD : [id number] Procedure Date : Aug 31 2023 04:17:52 Edit Date : Aug 31 2023 13:02:57 Diagnosis: Sinus rhythm Normal ECG NO STEMI. 0604 Confirmed by KASIE SANDOVAL MD ([id number]), purchasing expeditor THERESA SEAY ([id number]) on 08/31/2023 1:02:55 PM Test Reason : Arrhythmia Location : 402 : FVED fved05 Overread By : KASIE SANDOVAL MD Edited By : THERESA SEAY Referred By : , Acquired by : [id number], Normal [facility] ED PROV NOTEon 08-31-2023 ED PROV NOTE HNO ID: [id number] Author: RAYNA RHODES PA-C Service: Emergency Medicine Author Type: Physician Wireless Development Manager Type: ED Provider Notes Filed: 08/31/2023 08:06 [...] left foot. Pt states she saw her heading saw operator and was directed to come to [...] rarely occurring (more content not included)... Normal [facility] FLUABV+SARS-CoV-2+RSV Pnl Re sp ADRIEL+probeon 08-31-2023 FLUABV+SARS-CoV-2+RS V Pnl Resp ADRIEL+probe COVID 19 RESULT: Not detected The method used is RT-PCR or an equivalent NAAT method. Reference Range(the expected result in uninfected individuals): Not detected INFLUENZA A PCR: Not detected INFLUENZA B PCR: Not detected RSV PCR: Not detected Normal [facility] Comment on above: Performed By: #### 9 5941-1 ####[facility] [id number] [place] [address] [place] Gas and Carbon monoxide pane l (BldV)on 08-31-2023 BASE DEFICIT, VENOUS -5 mmol/L Low -2-0 [facility] Comment on above: Order Comment: Speci men Type: VENOUS BLOOD SPECIMEN Ordering Facility: [facility] Address: [address] [place] [address] Performed By: #### 2 4344-4 #### [facility] CLIA [id number] [address] [place] [address] [place] Body temperature 100.04 [degF] Normal [facility] Comment on above: Order Comment: Speci men Type: VENOUS BLOOD SPECIMEN Ordering Facility: [facility] Address: [address] [place] [address] Performed By: #### 2 4344-4 #### [facility] CLIA [id number] [address] [place] [address] [place] Calcium.ionized (Bld) [Mass/Vol] 1.08 mmol/L Normal 1.08-1.30 [facility] Comment on above: Order Comment: Speci men Type: VENOUS BLOOD SPECIMEN Ordering Facility: [facility] Address: [address] [place] [address] Performed By: #### 2 4344-4 #### [facility] CLIA [id number] [address] [place] [address] [place] Calcium.ionized adjusted to pH 7.4 (BldA) [Moles/Vol] 1.06 mmol/L Low 1.08-1.30 [facility] Comment on above: Order Comment: Speci men Type: VENOUS BLOOD SPECIMEN Ordering Facility: [facility] Address: [address] [place] [address] Performed By: #### 2 4344-4 #### [facility] CLIA [id number] [address] [place] [address] [place] Carboxyhemoglobin (BldV) [Mass fraction] 3.8 % High 0.0-2.0 [facility] Comment on above: Order Comment: Speci men Type: VENOUS BLOOD SPECIMEN Ordering Facility: [facility] Address: [address] [place] [address] Result Comment: Carb oxyhemoglobin Reference Range for Smokers: 2.0-8.0% Performed By: #### 2 4344-4 #### [facility] CLIA [id number] [address] [place] [address] [place] Chloride [Moles/Vol] 106 mmol/L High 97-105 [facility] Comment on above: Order Comment: Speci men Type: VENOUS BLOOD SPECIMEN Ordering Facility: [facility] Address: [address] [place] [address] Performed By: #### 2 4344-4 #### [facility] CLIA [id number] [address] [place] [address] [place] CO2 (BldV) [Partial pressure] 35 mm[Hg] Low 42-55 [facility] Comment on above: Order Comment: Speci men Type: VENOUS BLOOD SPECIMEN Ordering Facility: [facility] Address: [address] [place] [address] Performed By: #### 2 4344-4 #### [facility] CLIA [id number] [address] [place] [address] [place] CO2 adjusted to patient's actual temperature (BldV) [Partial pressure] Normal [facility] Comment on above: Order Comment: Speci men Type: VENOUS BLOOD SPECIMEN Ordering Facility: [facility] Address: [address] [place] [address] Performed By: #### 2 4344-4 #### [facility] CLIA [id number] [address] [place] [address] [place] Glucose [Mass/Vol] 460 mg/dL High 60-105 [facility] Comment on above: Order Comment: Speci men Type: VENOUS BLOOD SPECIMEN Ordering Facility: [facility] Address: [address] [place] [address] Performed By: #### 2 4344-4 #### [facility] CLIA [id number] [address] [place] [address] [place] HCO3 (Bld) [Moles/Vol] 19 mmol/L Low 24-28 [facility] Comment on above: Order Comment: Speci men Type: VENOUS BLOOD SPECIMEN Ordering Facility: [facility] Address: [address] [place] [address] Performed By: #### 2 4344-4 #### [facility] CLIA [id number] [address] [place] [address] [place] Hematocrit (Bld) [Volume fraction] 29.7 % Low 36.0-46.0 [facility] Comment on above: Order Comment: Speci men Type: VENOUS BLOOD SPECIMEN Ordering Facility: [facility] Address: [address] [place] [address] Performed By: #### 2 4344-4 #### [facility] CLIA [id number] [address] [place] [address] [place] Hemoglobin (Bld) [Mass/Vol] 9.6 g/dL Low 11.5-15.5 [facility] Comment on above: Order Comment: Speci men Type: VENOUS BLOOD SPECIMEN Ordering Facility: [facility] Address: [address] [place] [address] Performed By: #### 2 4344-4 #### [facility] CLIA [id number] [address] [place] [address] [place] Lactate [Moles/Vol] 1.1 mmol/L Normal 0.5-2.2 [facility] Comment on above: Order Comment: Speci men Type: VENOUS BLOOD SPECIMEN Ordering Facility: [facility] Address: [address] [place] [address] Performed By: #### 2 4344-4 #### [facility] IA [id number] [address] [place] [address] [place] Methemoglobin (Bld) [Mass fraction] 1.1 % Normal 0.0-1.5 [facility] Comment on above: Order Comment: Speci men Type: VENOUS BLOOD SPECIMEN Ordering Facility: [facility] Address: [address] [place] [address] Performed By: #### 2 4344-4 #### [facility] CLIA [id number] [address] [place] [address] [place] O2 THERAPY RA=Room Air Normal [facility] Comment on above: Order Comment: Speci men Type: VENOUS BLOOD SPECIMEN Ordering Facility: [facility] Address: [address] [place] [address] Performed By: #### 2 4344-4 #### [facility] CLIA [id number] [address] [place] [address] [place] Oxygen (BldV) [Partial pressure] 118 mm[Hg] High 35-45 [facility] Comment on above: Order Comment: Speci men Type: VENOUS BLOOD SPECIMEN Ordering Facility: [facility] Address: [address] [place] [address] Performed By: #### 2 4344-4 #### [facility] CLIA [id number] [address] [place] [address] [place] Oxygen adjusted to patient's actual temperature (BldV) [Partial pressure] Normal [facility] Comment on above: Order Comment: Speci men Type: VENOUS BLOOD SPECIMEN Ordering Facility: [facility] Address: [address] [place] [address] Performed By: #### 2 4344-4 #### [facility] CLIA [id number] [address] [place] [address] [place] Oxygen saturation in Venous blood 99 % High 60-85 [facility] Comment on above: Order Comment: Speci men Type: VENOUS BLOOD SPECIMEN Ordering Facility: [facility] Address: [address] [place] [address] Performed By: #### 2 4344-4 #### [facility] CLIA [id number] [address] [place] [address] [place] Oxyhemoglobin (BldV) [Mass fraction] 94 % High 60-85 [facility] Comment on above: Order Comment: Speci men Type: VENOUS BLOOD SPECIMEN Ordering Facility: [facility] Address: [address] [place] [address] Performed By: #### 2 4344-4 #### [facility] CLIA [id number] [address] [place] [address] [place] pH (BldV) 7.37 [pH] Normal 7.32-7.42 [facility] Comment on above: Order Comment: Speci men Type: VENOUS BLOOD SPECIMEN Ordering Facility: [facility] Address: [address] [place] [address] Performed By: #### 2 4344-4 #### [facility] CLIA [id number] [address] [place] [address] [place] pH adjusted to patient's actual temperature (BldV) Normal [facility] Comment on above: Order Comment: Speci men Type: VENOUS BLOOD SPECIMEN Ordering Facility: [facility] Address: [address] [place] [address] Performed By: #### 2 4344-4 #### [facility] CLIA [id number] [address] [place] [address] [place] Potassium [Moles/Vol] 5.3 mmol/L High 3.5-5.0 [facility] Comment on above: Order Comment: Speci men Type: VENOUS BLOOD SPECIMEN Ordering Facility: [facility] Address: [address] [place] [address] Performed By: #### 2 4344-4 #### [facility] CLIA [id number] [place] [address] [place] Sodium [Moles/Vol] 133 mmol/L Low 136-144 [facility] Comment on above: Order Comment: Speci men Type: VENOUS BLOOD SPECIMEN Ordering Facility: [facility] Address: [address] [place] [address] Performed By: #### 2 4344-4 #### [facility] CLIA [id number] [address] [place] [address] [place] HISTORY PHYSICALon HISTORY PHYSICAL HNO ID: [id number] Author: ANTHONY BARROW MD Service: Hospital Medicine [...] left foot ulcer that patient was seen heading saw operator as outpatient for and advised her [...] to monitor. Medication and Non-Pharmacologic VTE Prophylaxis/Anticoagula [facility] 08/31/23 1115 activity - mobilize patient ([place], [place]) VTE Prophylaxis: VTE prophylaxis appropriate SIGNATURE: Anthony Barrow MD PATIENT NAME: Aislinn Wheeler DATE: August 31, 2023 TIME: 11:03 AM PAGER/CONTACT #: Normal [facility] KETONES/ACETONE/BHBon 2023 Beta hydroxybutyrate [Moles/Vol] 0.50 mmol/L High <0.28 [facility] Comment on above: Order Comment: [place] Type: BLOOD SPECIMEN Ordering Facility: [facility] Address: [address] [place] [address] Performed By: #### B [place], 156[address]-1 #### [facility] CLIA [id number] [address] [place] [address] [place] POTASSIUM BLDon 08-31-2023 Potassium [Moles/Vol] 4.6 mmol/L Normal 3.7-5.1 [facility] Comment on above: Order Comment: [place] Type: BLOOD SPECIMEN Ordering Facility: [facility] Address: [address] [place] [address] Performed By: #### B HB, #### [facility] CLIA [id number] [address] [place] [address] [place] SEPSIS LACTATEon 08-31-2023 Lactate [Moles/Vol] 1.2 mmol/L Normal 0.0-2.0 [facility] Comment on above: Order Comment: Speci men Type: BLOOD SPECIMEN Ordering Facility: [facility] Address: [address] [place] [address] Performed By: #### B HB, #### [facility] CLIA [id number] [address] [place] [address] [place] Urinalysis complete panel (U )on 08-31-2023 Bacteria LM.HPF (Urine sed) [#/Area] Many Abnormal None Seen [facility] Comment on above: Order Comment: Speci men Type: BLOOD SPECIMEN Ordering Facility: [facility] Address: [address] [place] [address] Performed By: #### B HB, #### [facility] CLIA [id number] [address] [place] [address] [place] Bilirubin Ql (U) Negative Normal Negative [facility] Comment on above: Order Comment: Speci men Type: BLOOD SPECIMEN Ordering Facility: [facility] Address: [address] [place] [address] Performed By: #### Kimberlyn HB, #### [facility] CLIA [id number] [address] [place] [address] [place] Clarity (Unsp spec) Turbid Abnormal Clear [facility] Comment on above: Order Comment: Speci men Type: BLOOD SPECIMEN Ordering Facility: [facility] Address: [address] [place] [address] Performed By: #### B HB, #### [facility] CLIA [id number] [address] [place] [address] Color (U) Light Yellow Normal Yellow [facility] Comment on above: Order Comment: Speci men Type: BLOOD SPECIMEN Ordering Facility: [facility] Address: [address] [place] [address] Performed By: #### B HB, #### [facility] CLIA [id number] [address] [place] [address] Glucose Test strip (U) [Mass/Vol] 4+ Abnormal Trace, Negative [facility] Comment on above: Order Comment: Speci men Type: BLOOD SPECIMEN Ordering Facility: [facility] Address: [address] [place] [address] Performed By: #### B HB, #### [facility] CLIA [id number] [address] [place] [address] [place] Hemoglobin Ql (U) Trace Normal Negative, Trace [facility] Comment on above: Order Comment: Speci men Type: BLOOD SPECIMEN Ordering Facility: [facility] Address: [address] [place] [address] Performed By: #### B HB, #### [facility] CLIA [id number] [address] [place] [address] [place] Ketones Ql (U) Negative Normal Negative, Trace [facility] Comment on above: Order Comment: Speci men Type: BLOOD SPECIMEN Ordering Facility: [facility] Address: [address] [place] [address] Performed By: #### B HB, #### [facility] CLIA [id number] [address] [place] [address] Leukocyte esterase Test strip Ql (U) 500 Yuan/uL Abnormal Negative, 25 Yuan/uL [facility] Comment on above: Order Comment: Speci men Type: BLOOD SPECIMEN Ordering Facility: [facility] Address: [address] [place] [address] Performed By: #### B HB, #### [facility] CLIA [id number] [address] [place] [address] [place] Nitrite Ql (U) Negative Normal Negative [facility] Comment on above: Order Comment: Speci men Type: BLOOD SPECIMEN Ordering Facility: [facility] Address: [address] [place] [address] Performed By: #### B HB, #### [facility] CLIA [id number] [address] [place] [address] [place] pH (U) 6.0 [pH] Normal 5.0-8.0 [facility] Comment on above: Order Comment: Speci men Type: BLOOD SPECIMEN Ordering Facility: [facility] Address: [address] [place] [address] Performed By: #### B HB, #### [facility] CLIA [id number] [address] [place] [address] [place] Protein (U) [Mass/Vol] 1+ Abnormal Trace, Negative [facility] Comment on above: Order Comment: Speci men Type: BLOOD SPECIMEN Ordering Facility: [facility] Address: [address] [place] [address] Performed By: #### Kimberlyn HB, #### [facility] CLIA [id number] [address] [place] [address] [place] RBC LM.HPF (Urine sed) [#/Area] 3-5 /HPF Abnormal 0-3 /HPF [facility] Comment on above: Order Comment: Speci men Type: BLOOD SPECIMEN Ordering Facility: [facility] Address: [address] [place] [address] Performed By: #### B HB, #### [facility] CLIA [id number] [address] [place] [address] [place] Specific gravity (U) [Rel density] 1.017 Normal 1.005-1.030 [facility] Comment on above: Order Comment: Speci men Type: BLOOD SPECIMEN Ordering Facility: [facility] Address: [address] [place] [address] Performed By: #### B HB, #### [facility] CLIA [id number] [address] [place] [address] [place] Urobilinogen Ql (U) Negative Normal Negative [facility] Comment on above: Order Comment: Speci men Type: BLOOD SPECIMEN Ordering Facility: [facility] Address: [address] [place] [address] Performed By: #### B HB, #### [facility] CLIA [id number] [address] [place] [address] [place] WBC LM.HPF (Urine sed) [#/Area] /[HPF] Abnormal 0-5 /HPF [facility] Comment on above: Order Comment: Speci men Type: BLOOD SPECIMEN Ordering Facility: [facility] Address: [address] [place] [address] Performed By: #### B HB, 56311-2 #### [facility] CLIA [id number] [address] [place] [id number] [place] XR CHEST 1V [...] Fatigue and malaise, Fatigue and malaise (accession [id number]), Osteomyelitis (accession [id number]) MQ: XC1_5 Comparison: CT 01/17/2021, radiograph 01/17/2021 [...] performed for increased sensitivity, as clinically warranted. Marble [employer] Granite Polisher: GUILLE Transcribe Date/Time: Aug 31 2023 4:46A Dictated by : TAURUS MORTON MD This examination was interpreted and the report reviewed and electronically signed by: TAURUS MORTON MD on Aug 31 2023 4:51AM EST [id number] [facility] XR FOOT 3V AP/LAT/OBL LTon 0 [...] Fatigue and malaise, Fatigue and malaise (accession [id number]), Osteomyelitis (accession [id number]) MQ: XC1_5 Comparison: CT 01/17/2021, radiograph 01/17/2021 [...] performed for increased sensitivity, as clinically warranted. [employer] Gran[employer] Polisher: PSCB Transcribe Date/Time: Aug 31 2023 4:46A Dictated by : TAURUS MORTON MD This examination was interpreted and the report reviewed and electronically signed by: TAURUS MORTON MD on Aug 31 2023 4:51AM EST [id number] [facility] Benzodiazepines Screen Ql (U )on 08-09-2023 Benzodiazepines Ql (U) Negative Normal NEG [facility] Comment on above: Result Comment: Lenny odiazepines screening cut off value = 200 ng/mL This report is intended for use in clinical monitoring or management of patients. Performed By: #### 1 4316-4 #### [facility] ([id number]) [address] [place] [address] CCL GENERIC ORDERon 08-09-20 TEST NAME UQNTPP URINE PAIN PA VEGA QUANT Normal [facility] Comment on above: Result Comment: Wesley ected on 08/09 AT 1743: Previously reported as UQNTPP Performed By: #### C GO #### [facility] ([id number]) [address] [place] [address] TEST RESULT See Below Normal [facility] Comment on above: Result Comment: NOTE TEST RESULT FLAG UNIT REF.RANGE ----- Specimen Validity Quality See below Specimen quality results within acceptable limits Specimen Validity Creatinine 31.8 mg/dL 20.0-300.0 Specimen Validity PH 5.4 4.5-8.0 Specimen Validity Specific [place] 1.006 1.003-1.035 Specimen Validity Oxidants <38 mg/L [...] carboxylic acid (THCA) is a metabolite of vyehx-2-vellgredielmgopafedw which is the main active component of marijuana. Fentanyl, Urine <6 ng/mL <6 Buprenorphine, Ur <20 ng/mL <20 Methadone Urine <16 ng/mL <16 Methadone metabolite Urine <6 ng/mL <6 EDDP is a metabolite of methadone. Note See Below This test is for medical use only. This test was developed and its performance characteristics determined by [facility]'s Taurus Melendrez [facility] Pathology and Laboratory Medicine [place] ([facility]). It has not been cleared or approved by the FDA. [facility] is regulated under CLIA as qualified to perform high-complexity testing. This test is used for clinical purposes. It should not be regarded as investigational or for research. URINE PAIN PANEL QUANT Test Performed By: [facility] [address] [place] [address] Radar Tester: Jeyson Linares III #[id number] Performed By: #### C GO #### [facility] ([id number]) [address] [place] [address] Operative Reporton Operative Report [id number]#1.00T IFF Normal [facility] Pathology Noteon 08-07-2023 Pathology Note [id number]#1.00 TIFF Normal [facility] ED Note-Physicianon 06-29-20 23 ED Note-Physician [id number]#1.00T IFF Normal [facility] Patient Letter FTMCon 2022 Patient Letter [facility] (Inserted Image. Grecia ble to display) June 28, 2023 AISLINN WHEELER [address] [place] [id number] : 1960 Dear Aislinn, You missed your [...] any future cancellations. Sincerely, [facility] [address], [place] [address] Pt called and RS'd. Normal [facility] Basic metabolic 2000 panelon 06-23-2023 Anion gap [Moles/Vol] 9 mmol/L Normal 05-08 [facility] Comment on above: Order Comment: Speci men Type: BLOOD SPECIMEN Order[facility] Facility: [facility] Address: [address] [place] [address] Performed By: #### B HB, #### [facility] CLIA [id number] [address] [place] [address] [place] Calcium [Mass/Vol] 7.3 mg/dL Low 8.5-10.2 [facility] Comment on above: Order Comment: Speci men Type: BLOOD SPECIMEN Ordering Facility: [facility] Address: [address] [place] [address] Performed By: #### B HB, #### [facility] CLIA [id number] [address] [place] [address] [place] Chloride [Moles/Vol] 110 mmol/L High 97-105 [facility] Comment on above: Order Comment: Speci men Type: BLOOD SPECIMEN Ordering Facility: [facility] Address: [address] [place] [address] Performed By: #### B HB, #### [facility] CLIA [id number] [address] [place] [address] [place] CO2 [Moles/Vol] 19 mmol/L Low 22-30 [facility] Comment on above: Order Comment: Speci men Type: BLOOD SPECIMEN Ordering Facility: [facility] Address: [address] [place] [address] Performed By: #### B HB, #### [facility] CLIA [id number] [address] [place] [address] [place] Creatinine [Mass/Vol] 1.39 mg/dL High 0.58-0.96 [facility] Comment on above: Order Comment: Speci men Type: BLOOD SPECIMEN Ordering Facility: [facility] Address: [address] [place] [address] Performed By: #### B HB, #### [facility] CLIA [id number] [address] [place] [address] [place] Creatinine and Glomerular filtration rate.predicted panel (S/P/Bld) 42 mL/min/1.73m??? Low >=60 [facility] Comment on above: Order Comment: [place] Type: BLOOD SPECIMEN Ordering Facility: [facility] Address: [address] [place] [address] Result Comment: Donna mated Glomerular Filtration Rate [...] actual GFR. Performed By: #### B HB, 19868-4 #### [facility] CLIA [id number] [address] [place] [address] [place] Glucose [Mass/Vol] 157 mg/dL High 74-99 [facility] Comment on above: Order Comment: [place] Type: BLOOD SPECIMEN Ordering Facility: [facility] Address: [address] [place] [address] Result Comment: The [place] [employer] Association (ADA) provides guidance for cutoff [...] Standards of Medical Care in Diabetes 2016, [place] [employer]. Diabetes Care. 2016.39(Suppl 1). Performed By: #### B [place], 30248-9 #### [facility] CLIA [id number] [address] [place] [address] [place] Potassium [Moles/Vol] 5.1 mmol/L Normal 3.7-5.1 [facility] Comment on above: Order Comment: [place] Type: BLOOD SPECIMEN Ordering Facility: [facility] Address: [address] [place] [address] Performed By: #### B HB, 78858-7 #### [facility] CLIA [id number] [address] [place] [address] [place] Sodium [Moles/Vol] 138 mmol/L Normal 136-144 [facility] Comment on above: Order Comment: Speci men Type: BLOOD SPECIMEN Ordering Facility: [facility] Address: [address] [place] [address] Performed By: #### B HB, 36177-2 #### [facility] CLIA [id number] [address] [place] [address] [place] Urea nitrogen [Mass/Vol] 21 mg/dL Normal 7-21 [facility] Comment on above: Order Comment: Speci men Type: BLOOD SPECIMEN Order[facility] Facility: [facility] Address: [address] [place] [address] Performed By: #### B HB, 05718-2 #### [facility] CLIA [id number] [address] [place] [address] [place] CBC panel Auto (Bld)on 06-23 Erythrocyte distribution width (RBC) [Ratio] 14.4 % Normal 11.5-15.0 [facility] Comment on above: Order Comment: Speci men Type: BLOOD SPECIMEN Order[facility] Facility: [facility] Address: [address] [place] [address] Performed By: #### B HB, 20794-6 #### [facility] CLIA [id number] [address] [place] [address] [place] Hematocrit (Bld) [Volume fraction] 28.5 % Low 36.0-46.0 [facility] Comment on above: Order Comment: Speci men Type: BLOOD SPECIMEN Order[facility] Facility: [facility] Address: [address] [place] [address] Performed By: #### B HB, 44361-2 #### [facility] CLIA [id number] [address] [place] [address] [place] Hemoglobin (Bld) [Mass/Vol] 9.0 g/dL Low 11.5-15.5 [facility] Comment on above: Order Comment: Speci men Type: BLOOD SPECIMEN Order[facility] Facility: [facility] Address: [address] [place] [address] Performed By: #### B HB, #### [facility] CLIA [id number] [address] [place] [address] MCH (RBC) [Entitic mass] 25.2 pg Low 26.0-34.0 [facility] Comment on above: Order Comment: Speci men Type: BLOOD SPECIMEN Order[facility] Facility: [facility] Address: [address] [place] [address] Performed By: #### B HB, #### [facility] CLIA [id number] [address] [place] [address] MCHC (RBC) [Mass/Vol] 31.6 g/dL Normal 30.5-36.0 [facility] Comment on above: Order Comment: Speci men Type: BLOOD SPECIMEN Order[facility] Facility: [facility] Address: [address] [place] [address] Performed By: #### B HB, #### [facility] CLIA [id number] [address] [place] [address] [place] MCV (RBC) [Entitic vol] 79.8 fL Low 80.0-100.0 [facility] Comment on above: Order Comment: Speci men Type: BLOOD SPECIMEN Order[facility] Facility: [facility] Address: [address] [place] [address] Performed By: #### B HB, #### [facility] CLIA [id number] [address] [place] [address] [place] Nucleated RBC (Bld) [#/Vol] 10*3/uL Normal <0.01 [facility] Comment on above: Order Comment: Speci men Type: BLOOD SPECIMEN Order[facility] Facility: [facility] Address: [address] [place] [address] Performed By: #### B HB, #### [facility] CLIA [id number] [address] [place] [address] [place] Platelet mean volume (Bld) [Entitic vol] 10.6 fL Normal 9.0-12.7 [facility] Comment on above: Order Comment: Speci men Type: BLOOD SPECIMEN Order[facility] Facility: [facility] Address: [address] [place] [address] Performed By: #### B HB, 71266-1 #### [facility] CLIA [id number] [address] [place] [address] [place] Platelets (Bld) [#/Vol] 251 10*3/uL Normal 150-400 [facility] Comment on above: Order Comment: Speci men Type: BLOOD SPECIMEN Order[facility] Facility: [facility] Address: [address] [place] [address] Performed By: #### B HB, 22409-2 #### [facility] CLIA [id number] [address] [place] [address] [place] RBC (Bld) [#/Vol] 3.57 10*6/uL Low 3.90-5.20 [facility] Comment on above: Order Comment: Speci men Type: BLOOD SPECIMEN Ordering Facility: [facility] Address: [address] [place] [address] Performed By: #### B HB, 16030-0 #### [facility] CLIA [id number] [address] [place] [address] [place] WBC (Bld) [#/Vol] 7.47 10*3/uL Normal 3.70-11.00 [facility] Comment on above: Order Comment: Speci men Type: BLOOD SPECIMEN Ordering Facility: [facility] Address: [address] [place] [address] Performed By: #### B [place], 96140-4 #### [facility] CLIA [id number] [address] [place] [address] [place] CNDSon 06-23-2023 CNDS HNO ID: [id number] Author: Annie Martinez APRN.CARTOON ARTIST Service: Urology Author Type: Nurse Practitioner Type: [...] this patient's care. Taurus Ballard MD [facility] [place] [phone] or [phone] [facility] C O N F I D E N T I A L I N F O R M A T I O N ------ [facility] DOCUMENT DISCHARGE SUMMARY Patient Name: Aislinn Wheeler [...] Your Medications These medications were sent to [facility] [address] [place] [address] Hours: Monday-Monday: 7am-7pm, Sat: 9am-1pm acetaminophen 325 mg tablet docusate sodium 100 mg capsule Future Appointments: No future appointments. Electronically SIGNED by Licensed Independent Practitioner: Annie Martinez [facility]N.[facility] NIECY [facility] ([facility]) AISLINN WHEELER ([id number]) 1960 F Date Time Provider Department 06/23/23 HEIDY GARCIA During your visit today, we recorded the following information about you: Heidy Garcia RN 06/23/2023 9:05 AM Signed Patient had left robotic partial nephrectomy by Dr. Ballard on 06/22/2023 Will call for surgical follow up once discharged Heidy Garcia RN 06/26/2023 10:45 AM Signed Patient phone number non functioning. Active in [employer], will send message inquiring on how she's feeling post-operatively. Vonnie Wilder RN 06/27/2023 10:15 AM Signed Spoke with grand daughter, Lola, as this office is unable to reach patient for post op call. Lola reports, that patient's phone is turned off, and she does not know how to use [employer]. Lola reports that patient went to [place] [facility] due to excruciating pain -was given [...] Encounter Status:Closed by HEIDY GARCIA on 06/23/23 [facility] NURSING PROGon 06-23-2023 NURSING PROG HNO ID: [id number] Author: Sweta Cordova, RN Service: ? Author [...] Annie Martinez, awaiting PRN order of hydralazine. [facility] ANES POSTPROC EVALon 023 ANES POSTPROC EVAL HNO ID: [id number] Author: Rikki Jhaveri MD Service: Anesthesiology Author Type: Anesthesiologist Type: Anesthesia Postprocedure Evaluation Filed: 06/22/2023 2:18 PM Note Text: POST ANESTHESIA EVALUATION NOTE : 1960 Procedure Summary Date: 06/22/23 Room / Location: [place] [address]A / OR Anesthesia Start: 1107 Anesthesia Stop: [...] June 22, 2023 TIME: 2:18 PM CSN: [id number] [facility] ANES PRE-OPon 06-22-2023 ANES PRE-OP HNO ID: [id number] Author: Rikki Jhaveri MD Service: Anesthesiology Author [...] June 22, 2023 TIME: 9:54 AM CSN: [id number] Normal [facility] Basic metabolic 2000 panelon 06-22-2023 Anion gap [Moles/Vol] 7 mmol/L Low 9-18 [facility] Comment on above: Order Comment: Speci men Type: BLOOD SPECIMEN Ordering Facility: [facility] Address: [address] [place] [address] Performed By: #### 2 4321-2 #### [facility] CLIA [id number] [address] [place] [address] [place] Calcium [Mass/Vol] 7.5 mg/dL Low 8.5-10.2 [facility] Comment on above: Order Comment: Speci men Type: BLOOD SPECIMEN [facility] [facility] Address: [address] [place] [address] Performed By: #### 2 4321-2 #### [facility] CLIA [id number] [address] [place] [address] [place] Chloride [Moles/Vol] 108 mmol/L High 97-105 [facility] Comment on above: Order Comment: Speci men Type: BLOOD SPECIMEN [facility]ing Facility: [facility] Address: [address] [place] [address] Performed By: #### 2 4321-2 #### [facility] CLIA [id number] [address] [place] [address] [place] CO2 [Moles/Vol] 19 mmol/L Low 22-30 [facility] Comment on above: Order Comment: Speci men Type: BLOOD SPECIMEN [facility]ing Facility: [facility] Address: [address] [place] [address] Performed By: #### 2 4321-2 #### [facility] CLIA [id number] [address] [place] [address] [place] Creatinine [Mass/Vol] 1.57 mg/dL High 0.58-0.96 [facility] Comment on above: Order Comment: Speci men Type: BLOOD SPECIMEN Ordering Facility: [facility] Address: [address] [place] [address] Performed By: #### 2 4321-2 #### [facility] CLIA [id number] [address] [place] [address] [place] Creatinine and Glomerular filtration rate.predicted panel (S/P/Bld) 36 mL/min/1.73m??? Low >=60 [facility] Comment on above: Order Comment: [place] Type: BLOOD SPECIMEN [facility]: [facility] Address: [address] [place] [address] Result Comment: Donna mated Glomerular Filtration Rate [...] GFR. Performed By: #### 2 4321-2 #### [facility] CLIA [id number] [place] [address] [place] Glucose [Mass/Vol] 275 mg/dL High 74-99 [facility] Comment on above: Order Comment: [place] Type: BLOOD SPECIMEN [facility]ing [facility]: [facility] Address: [address] [place] [address] Result Comment: The [place] [employer] (ADA) provides guidance for cutoff [...] Standards of Medical Care in Diabetes 2016, [place] [employer]. Diabetes Care. 2016.39(Suppl 1). Performed By: #### 2 4321-2 #### [facility] CLIA [id number] [address] [place] [address] [place] Potassium [Moles/Vol] 5.3 mmol/L High 3.7-5.1 [facility] Comment on above: Order Comment: Speci men Type: BLOOD SPECIMEN Ordering Facility: [facility] Address: [address] [place] [address] Performed By: #### 2 4321-2 #### [facility] CLIA [id number] [address] [place] [address] [place] Sodium [Moles/Vol] 134 mmol/L Low 136-144 [facility] Comment on above: Order Comment: Speci men Type: BLOOD SPECIMEN Ordering [facility]: [facility] Address: [address] [place] [address] Performed By: #### 2 4321-2 #### [facility] CLIA [id number] [address] [place] [address] [place] Urea nitrogen [Mass/Vol] 26 mg/dL High 7-21 [facility] Comment on above: Order Comment: Speci men Type: BLOOD SPECIMEN Ordering [facility]: [facility] Address: [address] [place] [address] Performed By: #### 2 4321-2 #### [facility] CLIA [id number] [address] [place] [address] [place] CBC panel Auto (Bld)on 06-22 Erythrocyte distribution width (RBC) [Ratio] 14.3 % Normal 11.5-15.0 [facility] Comment on above: Order Comment: Speci men Type: BLOOD SPECIMEN Ordering Facility: [facility] Address: [address] [place] [address] Performed By: #### 5 8410-2 #### [facility] CLIA [id number] [address] [place] [address] [place] Hematocrit (Bld) [Volume fraction] 27.8 % Low 36.0-46.0 [facility] Comment on above: Order Comment: Speci men Type: BLOOD SPECIMEN Ordering [facility]: [facility] Address: [address] [place] [address] Performed By: #### 5 8410-2 #### [facility] CLIA [id number] [address] [place] [address] [place] Hemoglobin (Bld) [Mass/Vol] 8.9 g/dL Low 11.5-15.5 [facility] Comment on above: Order Comment: Speci men Type: BLOOD SPECIMEN Ordering [facility]: [facility] Address: [address] [place] [address] Performed By: #### 5 8410-2 #### [facility] CLIA [id number] [address] [place] [address] [place] MCH (RBC) [Entitic mass] 25.3 pg Low 26.0-34.0 [facility] Comment on above: Order Comment: Speci men Type: BLOOD SPECIMEN Ordering [facility]: [facility] Address: [address] [place] [address] Performed By: #### 5 8410-2 #### [facility] CLIA [id number] [address] [place] [address] [place] MCHC (RBC) [Mass/Vol] 32.0 g/dL Normal 30.5-36.0 [facility] Comment on above: Order Comment: Speci men Type: BLOOD SPECIMEN Ordering Facility: [facility] Address: [address] [place] [address] Performed By: #### 5 8410-2 #### [facility] CLIA [id number] [address] [place] [address] [place] MCV (RBC) [Entitic vol] 79.0 fL Low 80.0-100.0 [facility] Comment on above: Order Comment: Speci men Type: BLOOD SPECIMEN Ordering Facility: [facility] Address: [address] [place] [address] Performed By: #### 5 8410-2 #### [facility] CLIA [id number] [address] [place] [address] [place] Nucleated RBC (Bld) [#/Vol] 10*3/uL Normal <0.01 [facility] Comment on above: Order Comment: Speci men Type: BLOOD SPECIMEN Ordering [facility]: [facility] Address: [address] [place] [address] Performed By: #### 5 8410-2 #### [facility] CLIA [id number] [address] [place] [address] [place] Platelet mean volume (Bld) [Entitic vol] 10.8 fL Normal 9.0-12.7 [facility] Comment on above: Order Comment: Speci men Type: BLOOD SPECIMEN Ordering [facility]: [facility] Address: [address] [place] [address] Performed By: #### 5 8410-2 #### [facility] CLIA [id number] [address] [place] [address] [place] Platelets (Bld) [#/Vol] 230 10*3/uL Normal 150-400 [facility] Comment on above: Order Comment: Speci men Type: BLOOD SPECIMEN Ordering [facility]: [facility] Address: [address] [place] [address] Performed By: #### 5 8410-2 #### [facility] CLIA [id number] [address] [place] [address] [place] RBC (Bld) [#/Vol] 3.52 10*6/uL Low 3.90-5.20 [facility] Comment on above: Order Comment: Speci men Type: BLOOD SPECIMEN Order[facility]: [facility] Address: [address] [place] [address] Performed By: #### 5 8410-2 #### [facility] CLIA [id number] [address] [place] [address] [place] WBC (Bld) [#/Vol] 6.04 10*3/uL Normal 3.70-11.00 [facility] Comment on above: Order Comment: Speci men Type: BLOOD SPECIMEN Ordering [facility]: [facility] Address: [address] [place] [address] Performed By: #### 5 8410-2 #### [facility] CLIA [id number] [address] [place] [address] [place] NURSING PROGon 06-22-2023 NURSING PROG HNO ID: [id number] Author: Afia Lanier RN Service: Nursing Author Type: Registered Nurse Type: Nursing Progress Note Filed: 06/22/2023 5:56 PM Note Text: Transfer Note: PATIENT NAME: Aislinn Wheeler Patient Location: [place] [address]/ Room: [place] [address] Patient transferred into room/unit pk308 in stable condition. Actions taken: No futher actions taken at this time. Will continue to monitor and check with patient. [facility] NURSING PROG HNO ID: [id number] Author: Linda Nicholson RN Service: Nursing Author Type: Registered Nurse Type: Nursing Progress Note Filed: 06/22/2023 12:20 PM Note Text: pre-incision juan area noted to have redness and inflamed, prior to prepping and putting chaves in. [facility] NURSING PROG HNO ID: [id number] Author: Elva Joy RN Service: Nursing Author [...] (RECOMMENDATION): None Electronically Signed By: Elva Joy [facility] OPERATIVE NOon 06-22-2023 OPERATIVE NO HNO ID: [id number] Author: Taurus Ballard MD Service: Urology Author Type: Physician Type: Operative Report Filed: 06/22/2023 1:48 PM Note Text: OPERATIVE/PROCEDURE REPORT LOG ID: [id number] Surgery/Procedure Date: 06/22/2023 Incision/Procedure Start Time: 11:49 AM Incision Close/Procedure End Time: 1:55 PM Surgeon(s)/Proceduralis t(s) and Wireless Development Manager(s): Surgeon(s) and Role: * Taurus Ballard MD - Primary * Jeet De La Fuente MD - Resident - Assisting Physician Wireless Development Manager: Camden Rios PA-C; Alicia Harmon PA-C Procedure(s): [...] superior to the umbilicus a 12 mm technical services assistant port was placed. At this point [...] a specimen bag out of the supraumbilical technical services assistant port. This port was closed with [...] None Drains: 10 flat JUAN drain, 16 Vietnamese Chaves catheter Complications: None Accidental Punctures/Lacerations: None I/primary surgeon/proceduralist performed the procedure with assistance. SIGNATURE: Taurus Ballard MD PATIENT NAME: Aislinn Wheeler DATE: June 22, 2023 TIME: 1:42 PM PAGER/CONTACT #: [facility] SURGICAL PATHOLOGYon 023 CASE REPORT Normal [facility] Comment on above: Order Comment: Speci men Type: BLOOD SPECIMEN [facility]: [facility] Address: [address] [place] [address] Result Comment: Surg [facility] Pathology Report Case: [id number] Authorizing Provider: Taurus Ballard MD Collected: 06/22/2023 01:38 PM Ordering Location: [facility] Received: 06/22/2023 03:16 PM Operating Room Pathologist: Barron Cheema MD Specimen: KIDNEY PARTIAL NEPHRECTOMY LEFT, left renal neoplasm Performed By: #### B , 23093-0 #### [facility] CLIA [id number] OF [facility] CLINICAL HISTORY [facility] Comment on above: Order Comment: [place] Type: BLOOD SPECIMEN Order[facility]: [facility] Address: [address] [place] [address] Result Comment: 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 - 7.2 cm gross greatest dimension of tissue specimen (defer to clinical/imaging for overall lesion size). Performed By: #### B AMADO, 94706-6 #### [facility] CLIA [id number] [address] [place] [address] FINAL PERFORMING LAB [facility] Comment on above: Order Comment: [place] Type: BLOOD SPECIMEN Ordering Facility: [facility] Address: [address], [place] [address] Result Comment: Diag nostic interpretation performed at [facility], [address] [address] CLIA# [id number] Radar Tester: Oswald Munguia M.D. Performed By: #### Kimberlyn FISCHER, 51073-6 #### [facility] CLIA [id number] [address] [place] [address] OF [place] GROSS DESCRIPTION [facility] Comment on above: Order Comment: Speci men Type: BLOOD SPECIMEN Order[facility] Address: [address] [place] [address] Result Comment: Emre MCGRATH PARTIAL NEPHRECTOMY LEFT Received in formalin designated left renal neoplasm is a segment of chilel-purple membranous tissue which weighs 39 g and measures 7.2 x 5.5 x 3.5 cm. There is cautery present at the margin which is inked orange. The surfaces are smooth with no masses or papillations grossly appreciated. Sectioning does not reveal any masses. Algorithm Design Engineer sections are submitted in 5 cassettes. BF June 23, 2023 9:00 AM Gross examination performed at [facility], [address] [place] [address] CLIA # [id number] Performed By: #### Kimberlyn FISCHER, 59511-7 #### [facility] CLIA [id number] [address] [place] [address] OF [facility] CNPOlivia 06-15-2023 [facility]N [facility] AISLINN WHEELER ([id number]) 1960 F Date Time Provider Department 06/15/23 [...] Encounter Status:Closed by VONNIE WILDER on 06/15/23 [facility] 06-12-[address] [facility] Telephone ([facility]) AISLINN WHEELER ([id number]) 1960 F Date Time Provider Department 06/12/23 [facility] During your visit today, we recorded the following information about you: Liliana Velasco RN 06/12/2023 8:56 AM Signed Received call from RN at Dr. Sara Augustine ([phone]) office (endocrinology) regarding clearance for upcoming surgery [...] Sara Dai CNP received and scanned into [employer] to view. Allergies As of Date: 06/12/2023 [...] Encounter Status:Closed by LILIANA VELASCO on 06/12/23 [facility] C Urineon 06-10-2023 Bacteria identified Cx [...] Locations R1: This test was performed at: [facility], [address] [place] [address], [address] , , [facility] Comment on above: Performed By: #### 2 349999 #### [facility] [address] [place] [address] [facility]-09[facility]20[facility] AISLINN WHEELER ([id number]) 1960 F Date Time Provider Department 06/09/23 TAURUS BALLARD During your visit today, we recorded the following information about you: Derik Fernandez 06/09/2023 3:31 PM Signed Lvm on patient's phone 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 Chao, Patient saw endocrinology at [facility] 06/08 and had medications adjusted. I [...] of instructions above Thank you Aaron Aguilar APRN.CARTOON ARTIST Anitra Sanchez RN 06/19/2023 9:07 AM Addendum I spoke with patient and instructions given to take at least 12 units of her Lantus the night prior to her scheduled surgery on 06/22/[address] Ballard. Patient stated she is not feeling well and has the following symptoms: whole body aches, chills, nausea, and fatigue. She is on her way to [facility] ED. Because patient is not feeling [...] with hyperglycemia (HCC) [E11.65] Order(s):CONSULT TO ENDOCRINOLOGY [3208] Order #: [id number]: 1 FUTURE Prescriptions as of 06/19/2023 - [...] hours as (more content not included)... Normal [facility] CBC W Auto Differential pane l (Bld)on 06-06-2023 Basophils (Bld) [#/Vol] 0.04 10*3/uL Normal <0.11 [facility] Comment on above: Order Comment: Speci men Type: BLOOD SPECIMENOrdering Facility: [facility] Address: [address] [place] [address] Performed By: #### 5 7021-8 ####[facility] [id number] [facility] [id number] [id number] [place] Basophils/100 WBC (Bld) 0.8 % Normal [facility] Comment on above: Order Comment: Speci men Type: BLOOD SPECIMENOrdering Facility: [facility] Address: [address] [place] [address] Performed By: #### 5 7021-8 ####[facility] [id number] [place] [address] [place] Differential cell count method Nom (Bld) Auto Normal [facility] Comment on above: Order Comment: Speci men Type: BLOOD SPECIMENOrdering Facility: [facility] Address: [address] [place] [address] Performed By: #### 5 7021-8 ####[facility] [id number] [place] [address] [place] Eosinophils (Bld) [#/Vol] 0.15 10*3/uL Normal <0.46 [facility] Comment on above: Order Comment: Speci men Type: BLOOD SPECIMENOrdering Facility: [facility] Address: [address] [place] [address] Performed By: #### 5 7021-8 ####[facility] [id number] [place] [address] [place] Eosinophils/100 WBC (Bld) 3.1 % Normal [facility] Comment on above: Order Comment: Speci men Type: BLOOD SPECIMENOrdering Facility: [facility] Address: [address] [place] [address] Performed By: #### 5 7021-8 ####[facility] [id number] [place] [address] [place] Erythrocyte distribution width (RBC) [Ratio] 14.7 % Normal 11.5-15.0 [facility] Comment on above: Order Comment: Speci men Type: BLOOD SPECIMENOrdering Facility: [facility] Address: [address] [place] [address] Performed By: #### 5 7021-8 ####[facility] [id number] [place] [address] [place] Hematocrit (Bld) [Volume fraction] 37.2 % Normal 36.0-46.0 [facility] Comment on above: Order Comment: Speci men Type: BLOOD SPECIMENOrdering Facility: [facility] Address: [address] [place] [address] Performed By: #### 5 7021-8 ####[facility] [id number] [place] [address] [place] Hemoglobin (Bld) [Mass/Vol] 11.9 g/dL Normal 11.5-15.5 [facility] Comment on above: Order Comment: Speci men Type: BLOOD SPECIMENOrdering Facility: [facility] Address: [address] [place] [address] Performed By: #### 5 7021-8 ####[facility] [id number] [place] [address] [place] Immature granulocytes (Bld) [#/Vol] 10*3/uL Normal <0.10 [facility] Comment on above: Order Comment: Speci men Type: BLOOD SPECIMENOrdering Facility: [facility] Address: [address] [place] [address] Performed By: #### 5 7021-8 ####[facility] [id number] [place] [address] [place] Immature granulocytes/100 WBC (Bld) 0.4 % Normal [facility] Comment on above: Order Comment: Speci men Type: BLOOD SPECIMENOrdering Facility: [facility] Address: [address] [place] [address] Performed By: #### 5 7021-8 ####[facility] [id number] [place] [address] [place] Lymphocytes (Bld) [#/Vol] 2.18 10*3/uL Normal 1.00-4.00 [facility] Comment on above: Order Comment: Speci men Type: BLOOD SPECIMENOrdering Facility: [facility] Address: [address] [place] [address] Performed By: #### 5 7021-8 ####[facility] [id number] [place] [address] [place] Lymphocytes/100 WBC (Bld) 44.7 % Normal [facility] Comment on above: Order Comment: Speci men Type: BLOOD SPECIMENOrdering Facility: [facility] Address: [address] [place] [address] Performed By: #### 5 7021-8 ####[facility] [id number] [place] [address] [place] MCH (RBC) [Entitic mass] 25.4 pg Low 26.0-34.0 [facility] Comment on above: Order Comment: Speci men Type: BLOOD SPECIMENOrdering Facility: [facility] Address: [address] [place] [address] Performed By: #### 5 7021-8 ####[facility] [id number] [place] [address] [place] MCHC (RBC) [Mass/Vol] 32.0 g/dL Normal 30.5-36.0 [facility] Comment on above: Order Comment: Speci men Type: BLOOD SPECIMENOrdering Facility: [facility] Address: [address] [place] [address] Performed By: #### 5 7021-8 ####[facility] [id number] [place] [address] [place] MCV (RBC) [Entitic vol] 79.5 fL Low 80.0-100.0 [facility] Comment on above: Order Comment: Speci men Type: BLOOD SPECIMENOrdering Facility: [facility] Address: [address] [place] [address] Performed By: #### 5 7021-8 ####[facility] [id number] [place] [address] [place] Monocytes (Bld) [#/Vol] 0.42 10*3/uL Normal <0.87 [facility] Comment on above: Order Comment: Speci men Type: BLOOD SPECIMENOrdering Facility: [facility] Address: [address] [place] [address] Performed By: #### 5 7021-8 ####[facility] [id number] [place] [address] [place] Monocytes/100 WBC (Bld) 8.6 % Normal [facility] Comment on above: Order Comment: Speci men Type: BLOOD SPECIMENOrdering Facility: [facility] Address: [address] [place] [address] Performed By: #### 5 7021-8 ####[facility] [id number] [place] [address] [place] Neutrophils (Bld) [#/Vol] 2.07 10*3/uL Normal 1.45-7.50 [facility] Comment on above: Order Comment: Speci men Type: BLOOD SPECIMENOrdering Facility: [facility] Address: [address] [place] [address] Performed By: #### 5 7021-8 ####[facility] [id number] [place] [address] [place] Neutrophils/100 WBC (Bld) 42.4 % Normal [facility] Comment on above: Order Comment: Speci men Type: BLOOD SPECIMENOrdering Facility: [facility] Address: [address] [place] [address] Performed By: #### 5 7021-8 ####[facility] [id number] [place] [address] [place] Nucleated RBC (Bld) [#/Vol] 10*3/uL Normal <0.01 [facility] Comment on above: Order Comment: Speci men Type: BLOOD SPECIMENOrdering Facility: [facility] Address: [address] [place] [address] Performed By: #### 5 7021-8 ####[facility] [id number] [place] [address] [place] Nucleated RBC/100 WBC (Bld) [Ratio] 0.0 /100 WBC Normal [facility] Comment on above: Order Comment: Speci men Type: BLOOD SPECIMENOrdering Facility: [facility] Address: [address] [place] [address] Performed By: #### 5 7021-8 ####[facility] [id number] [place] [address] [place] Platelet mean volume (Bld) [Entitic vol] 11.5 fL Normal 9.0-12.7 [facility] Comment on above: Order Comment: Speci men Type: BLOOD SPECIMENOrdering Facility: [facility] Address: [address] [place] [address] Performed By: #### 5 7021-8 ####[facility] [id number] [place] [address] [place] Platelets (Bld) [#/Vol] 230 10*3/uL Normal 150-400 [facility] Comment on above: Order Comment: Speci men Type: BLOOD SPECIMENOrdering Facility: [facility] Address: [address] [place] [address] Performed By: #### 5 7021-8 ####[facility] [id number] [place] [address] [place] RBC (Bld) [#/Vol] 4.68 10*6/uL Normal 3.90-5.20 [facility] Comment on above: Order Comment: Speci men Type: BLOOD SPECIMENOrdering Facility: [facility] Address: [address] [place] [address] Performed By: #### 5 7021-8 ####[facility] [id number] [place] [address] [place] WBC (Bld) [#/Vol] 4.88 10*3/uL Normal 3.70-11.00 [facility] Comment on above: Order Comment: Speci men Type: BLOOD SPECIMENOrdering Facility: [facility] Address: [address] [place] [address] Performed By: #### 5 7021-8 ####[facility] [id number] [address] [address] [place] Comprehensive metabolic 2000 panelon 06-06-2023 Albumin [Mass/Vol] 3.8 g/dL Low 3.9-4.9 [facility] Comment on above: Order Comment: Speci men Type: BLOOD SPECIMENOrdering Facility: [facility] Address: [address] [place] [address] Performed By: #### 2 4323-8 ####[facility] [id number] [place] [address] [place] ALP [Catalytic activity/Vol] 115 U/L Normal 34-123 [facility] Comment on above: Order Comment: Speci men Type: BLOOD SPECIMENOrdering Facility: [facility] Address: [address] [place] [address] Performed By: #### 2 4323-8 ####[facility] [id number] [place] [address] [place] ALT [Catalytic activity/Vol] 11 U/L Normal 7-38 [facility] Comment on above: Order Comment: Speci men Type: BLOOD SPECIMENOrdering Facility: [facility] Address: [address] [place] [address] Performed By: #### 2 4323-8 ####[facility] LABCLIA [id number] [address] [address] [place] Anion gap [Moles/Vol] 11 mmol/L Normal 9-18 [facility] Comment on above: Order Comment: Speci men Type: BLOOD SPECIMENOrdering Facility: [facility] Address: [address] [place] [id number] Performed By: #### 2 4323-8 ####[facility] LABCLIA [id number] [place] [address] [place] AST [Catalytic activity/Vol] 12 U/L Low 13-35 [facility] Comment on above: Order Comment: Speci men Type: BLOOD SPECIMENOrdering Facility: [facility] Address: [address] [place] [address] Performed By: #### 2 4323-8 ####[facility] LABCLIA [id number] [place] [address] [place] Bilirubin [Mass/Vol] 0.3 mg/dL Normal 0.2-1.3 [facility] Comment on above: Order Comment: Speci men Type: BLOOD SPECIMENOrdering Facility: [facility] Address: [address] [place] [address] Performed By: #### 2 4323-8 ####[facility] LABCLIA [id number] [place] [address] [place] Calcium [Mass/Vol] 8.9 mg/dL Normal 8.5-10.2 [facility] Comment on above: Order Comment: Speci men Type: BLOOD SPECIMENOrdering Facility: [facility] Address: [address] [place] [address] Performed By: #### 2 4323-8 ####[facility] LABCLIA [id number] [place] [address] [place] Chloride [Moles/Vol] 95 mmol/L Low 97-105 [facility] Comment on above: Order Comment: Speci men Type: BLOOD SPECIMENOrdering Facility: [facility] Address: [address] [place] [address] Performed By: #### 2 4323-8 ####[facility] LABCLIA [id number] [place] [address] [place] CO2 [Moles/Vol] 24 mmol/L Normal 22-30 [facility] Comment on above: Order Comment: Speci men Type: BLOOD SPECIMENOrdering Facility: [facility] Address: [address] [place] [id number] Performed By: #### 2 4323-8 ####[facility] LABCLIA [id number] [place] [address] [place] Creatinine [Mass/Vol] 1.81 mg/dL High 0.58-0.96 [facility] Comment on above: Order Comment: Diallo men Type: BLOOD SPECIMENOrdering Facility: [facility] Address: [address] [place] [address] Performed By: #### 2 4323-8 ####[facility] LABIA [id number] [place] [address] [place] Creatinine and Glomerular filtration rate.predicted panel (S/P/Bld) 31 mL/min/1.73m??? Low >=60 [facility] Comment on above: Order Comment: Dial[place] men Type: BLOOD SPECIMENOrdering Facility: [facility] Address: [address] [place] [address] Result Comment: Donna mated Glomerular Filtration Rate [...] actual GFR. Performed By: #### 2 4323-8 ####[facility] LABIA [id number] [place] [address] [place] Glucose [Mass/Vol] 510 mg/dL High 74-99 [facility] Comment on above: Order Comment: Diallo men Type: BLOOD SPECIMENOrdering Facility: [facility] Address: [address] [place] [address] Result Comment: The [place] Diabetes Association (ADA) provides guidance for cutoff [...] Standards of Medical Care in Diabetes 2016, [place] Diabetes Association. Diabetes Care. 2016.39(Suppl 1). Performed By: #### 2 4323-8 ####[facility] LABCLIA [id number] [place] [address] [place] Potassium [Moles/Vol] 5.9 mmol/L High 3.7-5.1 [facility] Comment on above: Order Comment: Speci men Type: BLOOD SPECIMENOrdering Facility: [facility] Address: [address] [place] [address] Performed By: #### 2 4323-8 ####[facility] LABCLIA [id number] [place] [address] [place] Protein [Mass/Vol] 8.2 g/dL High 6.3-8.0 [facility] Comment on above: Order Comment: Speci men Type: BLOOD SPECIMENOrdering Facility: [facility] Address: [address] [place] [address] Performed By: #### 2 4323-8 ####[facility] LABCLIA [id number] [place] [address] [place] Sodium [Moles/Vol] 130 mmol/L Low 136-144 [facility] Comment on above: Order Comment: Speci men Type: BLOOD SPECIMENOrdering Facility: [facility] Address: [address] [place] [address] Performed By: #### 2 4323-8 ####[facility] LABCLIA [id number] [place] [address] [place] Urea nitrogen [Mass/Vol] 36 mg/dL High 7-21 [facility] Comment on above: Order Comment: Speci men Type: BLOOD SPECIMENOrdering Facility: [facility] Address: [address] [place] [address] Performed By: #### 2 4323-8 ####[facility] LABCLIA [id number] [id number] [id number] [place] ECG COMPLETEon 06-06-2023 ECG COMPLETE Ventricular Rate : 7 6 BPM Atrial Rate : 76 BPM P-R Interval : 162 ms QRS Duration : 74 ms Q-T Interval : 402 ms QTC Calculation(Bazett) : 452 ms Calculated P Udell : 48 degrees Calculated R Udell : 43 degrees Calculated T Udell : 53 degrees NORMAL SINUS RHYTHM POSSIBLE LEFT ATRIAL ENLARGEMENT BORDERLINE ECG Confirmed by AMANDA DAVID MD ([id number]) on 06/10/2023 4:44:16 PM NAME : AISLINN WHEELER PID : [id number] : 1960 Gender : Female Race : ORD : [id number] Procedure Date : Jun 06 2023 12:04:48 Edit Date : Jun 10 2023 16:44:21 Diagnosis: NORMAL SINUS RHYTHM POSSIBLE LEFT ATRIAL ENLARGEMENT BORDERLINE ECG Confirmed by AMANDA DAVID MD ([id number]) on 06/10/2023 4:44:16 PM Test Reason : Z01.818 [facility] examination [facility] Over[facility] By : AMANDA DAVID MD Edited By : AMANDA DAVID MD Referred By : TAURUS BALLARD Acquired by : am, Normal [facility] HISTORY PHYSICALon HISTORY PHYSICAL HNO ID: [id number] Author: Aaron Aguilar APRN.CARTOON ARTIST Service: ? Author Type: Nurse Practitioner Type: [...] Bilateral Obstructive Uropathy Anatoliy (Acute Kidney Injury) ([facility]) Generalized Weakness Falls Frequently Severe Protein-Calorie Malnutrition ([facility]) Bladder Outlet Obstruction Primary Hypertension Mild Intermittent Asthma Without Complication History of Tia (Transient Ischemic Attack) Mvp (Mitral Valve Prolapse) Mildred (Iron Deficiency Anemia) Chronic Pain Due to Trauma Neurogenic Bladder Stage 3a Chronic Kidney Disease (Hcc) Type 2 Diabetes Mellitus With Hyperglycemia, With Long-Term Current Use of Insulin ([facility]) Subjective CHIEF COMPLAINT: Flank pain [...] 2 drinks per day. : See HPI FIELD SUPERVISOR: Negative for abnormal vaginal bleeding, abnormal vaginal [...] pupils equal, (more content not included)... Normal [facility] HbA1c (Bld)on 06-06-2023 Average glucose Estimated from glycated hemoglobin (Bld) [Mass/Vol] 335 mg/dL Normal [facility] Comment on above: Order Comment: Speci men Type: BLOOD SPECIMENOrdering Facility: [facility] Address: [address] [place] [address] Result Comment: eAG: (Estimated average glucose) is a calculated value from HgbA1c and is community health representative of the average blood glucose level in the last 2-3 month period. Performed By: #### 5 5454-3 ####[facility] LABCLIA [id number] [place] [address] [place] HbA1c (Bld) [Mass fraction] 13.3 % High 4.3-5.6 [facility] Comment on above: Order Comment: [place] Type: BLOOD SPECIMENOrdering Facility: [facility] Address: [address] [place] [address] Result Comment: [place] Diabetes Association guidelines indicate that patients with HgbA1c in the range 5.7-6.4% are at increased risk for development of diabetes, and intervention by lifestyle modification may be beneficial. HgbA1c greater or equal to 6.5% is considered diagnostic of diabetes. Performed By: #### 5 5454-3 ####[facility] LABCLIA [id number] [address] [place] PT panel Coag (PPP)on 2022 INR Coag (PPP) [Relative time] 1.0 {INR} Normal 0.9-1.3 [facility] Comment on above: Order Comment: [place] Type: BLOOD SPECIMENOrdering Facility: [facility] Address: [address] [place] [address] Result Comment: Laxmi min K Antagonist (VKA) Therapeutic Range: INR 2 to 3 (Target INR of 2.5) Note: For patients treated with VKA drugs, such as warfarin, the [place] College of Chest [employer]icians 2012 Guideline recommends [...] Chest 2012, 141:7S-47S Eligio LEÓN et al. [facility] 2017, 70: 252-289 Performed By: #### 1 4979-9, 94001-8 ####[facility] LABCLIA [id number] [place] [address] [place] PT Coag (PPP) [Time] 10.1 s Normal 9.7-13.0 [facility] Comment on above: Order Comment: Speci men Type: BLOOD SPECIMENOrdering Facility: [facility] Address: [address] [place] [address] Performed By: #### 1 4979-9, 67483-8 ####[facility] LABCLIA [id number] [address] OF [facility] TYPE AND SCREEN,30 DAYon ABO B Normal [facility] Comment on above: Order Comment: Speci men Type: BLOOD SPECIMENOrdering Facility: [facility] Address: [address] [place] [address] Performed By: #### T SCR30 ####[facility] BLOOD BANKIA [id number] [address] [place] HISTORICAL AB SCR STATUS Negative Normal [facility] Comment on above: Order Comment: Speci men Type: BLOOD SPECIMENOrdering Facility: [facility] Address: [address] [place] [address] Performed By: #### T SCR30 ####[facility] BLOOD BANKCLIA [id number] [place] [address] [place] Rh Nom (Bld) Positive Normal [facility] Comment on above: Order Comment: Speci men Type: BLOOD SPECIMENOrdering Facility: [facility] Address: [address] [place] [address] Performed By: #### T SCR30 ####[facility] BLOOD BANKCLIA [id number] [place] [address] [place] aPTT PPPon 06-06-2023 aPTT Coag (PPP) [Time] 28.7 s Normal 23.0-32.4 [facility] Comment on above: Order Comment: Speci men Type: BLOOD SPECIMENOrdering Facility: [facility] Address: [address] [facility] [place] [address] Result Comment: Yeny en Plasma Aliquot Performed By: #### 1 4979-9, 44417-7 ####[facility] LABCLIA [id number] [facility] [id number] [place] Consent for Procedure/Surger yon 05-22-2023 Consent for Procedure/Surgery [id number]#1.0 0CD:127 Normal [facility] Consent for Treatmenton Consent for Treatment [id number]#1.00C D:127 Normal [facility] Inpatient Patient Summaryon 05-22-2023 Inpatient Patient Summary [place] [id number] Clinical Summary Person Information Name: AISLINN WHEELER Age: 63 Years : 1960 Sex: Female PCP: AGUSTO OLMSTEAD CNP Marital Status: Race: White Ethnicity: Non- or Language: Malay Visit Id: Visit Reason: MIXED URINARY INCONTINENCE Speciality: Acuity: Enc Type: Outpatient Med Service: Surgery Arrival: 05/22/2023 09:41:57 Discharge: Dispo Type: Address: [address] [place] [phone] Provider Notes: Diagnosis: Feeling of incomplete bladder [...] Address: When: Lisa Vern [address] [place] [phone] Business (1) [facility] [address] [place] [address], [place] [phone] Business (1) Comments: Office to schedule follow up in 1 month with PVR Patient Education Information: EU - Cystoscopy with Botox Injection Discharge Instructions (CUSTOM) [facility] IntraOperative Documentson 1 IntraOperative Documents [id number]#1.0 0CD:127 [facility] Main OR Intraoperative Recor don 05-22-2023 Main OR Intraoperative Record IntraOp Document Type FTURO Summary Primary Physician: Lisa Porras MD Finalized Date/Time: 05/22/23 11:29:32 Pt. Name: AISLINN WHEELER Pranay/Sex: 1960 Female Med Rec #: [id number] Physician: Lisa Porras MD Financial #: [id number] Pt. Type: O Room/Bed: / Admit/Disch: 05/22/23 09:41:57 - Institution: Case Times FTURO Entry 1 Patient Times In Room 05/22/23 11:15:00 Out Room 05/22/23 11:30:00 Procedure Times Start 05/22/23 11:22:00 Stop 05/22/23 11:26:00 Anesthesia Times Last Modified By: Katya LE, Marilee Feldman 05/22/23 11:26:29 General Comments: BOTOX 100 UNITS LOT#: [id number] , EXP DATE: 09/2025 -Jessica BLANCO RN Case Attendance FTURO Entry 1 Entry 2 Entry 3 Case Attendee Vern TAVERAS, Lisa Blanco RN, Marilee Solano CST, Cammie Feldman Role Performed Surgeon - Primary Trauma Coordinator - Primary Scrub - Primary Time In [...] By: Marilee Blanco RN 05/22/23 11:29 Normal [facility] Main OR Preoperative Recordo n 05-22-2023 Main OR Preoperative Record Holding Area Document Type FTURO Summary Primary Physician: Lisa Porras MD Finalized Date/Time: 05/22/23 10:32:24 Pt. Name: AISLINN WHEELER Ashok /Sex: 1960 Female Med Rec #: [id number] Physician: Lisa Porras MD Financial #: [id number] Pt. Type: O Room/Bed: / Admit/Disch: 05/22/23 [...] By: Cammie Mcpherson RN 05/22/23 10:32 Normal [facility] Operative Reporton Operative Report Patient: BARBARA WHEELER Age: 63 years Sex: Female : 1960 Associated Diagnoses: None Author: Lisa Porras MD Procedure Operative Information Details: Date/ Time: 05/22/2023 11:29:00. Pre-Op Dx: Feeling of incomplete bladder emptying (ZAV71-ZO R39.14, Discharge, Medical), Mixed incontinence (XSX53-TA N39.46, Discharge, Medical), Urinary leakage (UEQ49-TY R32, Discharge, Medical). Post-Op Dx: Same. Anesthesia [...] to [facility] in the remote past). Normal [facility] Comment on above: Result Comment: Elec tronically Signed By: Lisa Porras MD\.br\Date and Time Signed: 05/22/23 11:30 EDT Outpatient Surgery Discharge Instructionon 05-22-2023 Outpatient Surgery Discharge Instruction [place] [address] Patient Discharge Instructions PERSON INFORMATION Name: AISLINN [...] Address: When: Lisa Porras [address] [place] [phone] Business (1) [address] [place], [place] [phone] Business (1) Comments: Office to schedule follow [...] Date You may receive a survey from [employer] asking you to rate your care experience. Your feedback is important and will help us understand what we do well and how we can improve the quality of care we provide to you, your loved ones and our community. It?s an honor to serve you. Thank you for choosing [facility] Normal [facility] Consultation Noteon 05-19-20 Consultation Note [id number]#1.00C D:127 Normal [facility] A1C HEMOGLOBINon 05-18-2023 HbA1c (Bld) [Mass fraction] 14.0 % [facility] AISLINN WHEELER ([id number]) 1960 F Date Time Provider Department 05/18/23 TAURUS BALLARD During your visit today, we recorded the following information about you: Agusto Faulkner 05/18/2023 1:01 PM Signed Consult notes sent back to Dr. Lisa Porras , phone [phone]. From Dr. Ballard office. Allergies As of [...] Encounter Status:Closed by DERIK FERNANDEZ on 06/09/23 [facility] Glucose - FINGER STICKon Glucose [Mass/Vol] 429 mg/dL Verafin Other HbA1c (Bld) [Mass fraction]o n 05-18-20[address] A[address]C [address] [employer] [facility] Pergunter Other CNOVon 05-17-2023 CNOV Office Visit (URFHR) AISLINN WHEELER ([id number]) 1960 F Date Time Provider Department 05/17/23 1:10 PM [facility] During your visit today, we recorded the following information about you: Temperature Pulse Blood pressure Weight 97.5 degrees 70/minute 172/81 60.1 kg Taurus Ballard MD 05/17/2023 1:35 PM Signed [facility] FOLLOW-UP PATIENT HISTORY AND [...] 1.92 01/19/[address] scan (outside records) [facility] 09/28/21 IMPRESSION: Since the prior CT [...] other structures) (more content not included)... Normal [facility] C Urineon 05-13-2023 Bacteria identified Cx [...] Locations R1: This test was performed at: [facility], [address] [place] [address], [address]- , [place], Normal [facility] Comment on above: Performed By: #### 2 [id number] #### [facility] [address] [place] [address] Physician Referralon 023 Physician Referral [id number]#1.00CD :127 PATIENT IS SCHEDULED 05/17/2023 [facility] Consultation Noteon 05-04-20 23 Consultation Note [id number]#1.00CD :127 Normal [facility] Insurance Correspondenceon 0 05-04-2023 Insurance Correspondence [id number]#1.00 CD:127 Normal [facility] Urology Office/Clinic Noteon 05-04-2023 Urology Office/Clinic [...] mass on Kidney was not cancerous. However novelty printing machine operator told her she has kidney cancer. Denies [...] PSH lap cholecystectomy, open hysterectomy -Continues with novelty printing machine operator for CKD3 1. Renal cyst (N28.1: Cyst [...] pt to tertiary center, Dr. Ballard at [facility] for evaluation of robotic left cyst decortication -Pt states novelty printing machine operator told her she has cancer. 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 Ordered: 94390 Measure Post Void residual urine and/or bladder capacity by US- non-imaging Urnls Dip Stick Auto w/o Microscopy POC 08013 2. Mixed incontinence (N39.46: Mixed incontinence) Pt [...] of Botox. (more content not included)... Normal [facility] Comment on above: Result Comment: Elec tronically Signed By: Lisa Porras MD\.br\Date and Time Signed: 05/04/23 14:11 EDT Ambulatory Visit Summaryon 0 05-03-2023 Ambulatory Visit Summary AISLINN WHEELER :1960 Visit Date:05/03/2023 Ambulatory Visit Instructions Your Diagnosis Renal mass Renal cyst Mixed incontinence Feeling of incomplete bladder emptying Glucosuria Tests Performed Urnls Dip Stick Auto w/o Microscopy POC [address]94[address] Your Care Team Attending Physician - Lisa [...] Follow-Up Appointments Monday 12:30 PM EDT Where: [facility] Monday 10:30 AM EDT Where: [facility] You Need to Schedule the Following Appointments Follow Up with Vern TAVERAS, Lisa Montiel, URL, URO When: Comments: Sched Botox. Where: Medications What How Much When Instructions New cephalexin (Keflex 500 mg Cap) 1 Capsules By Mouth 2 times a day Duration: 3 Days Start one day prior to procedure Pickup at [facility] New estradiol topical (Estrace 0.1 mg/ g Cream) See instructions Refills: 3 apply pea size amount to urethra/ inner vagina 3x/ week x 1 month, then 2x/ week for maintainence Pickup at [facility] Unchanged trospium (trospium 20 mg oral [...] physician if questions or concerns Pharmacy Information [facility]: [address], [place] [id number] [phone] Test Results Urnls Dip Stick Auto w/o Microscopy POC 08112 (05/03/2023) Bilirubin Urine Dipstick - Negative Blood Urine Dipstick - Trace-intact Glucose Urine Dipstick - 3+ 1000 mg/dl Ketones Urine Dipstick - Negative Leukocytes Urine Dipstick - Negative Nitrite Urine Dipstick - Negative Protein Urine Dipstick - Trace Specific [place] Urine Dipstick - 1.015 Urine Appearance Urine [...] are saf (more content not included)... Normal [facility] Patient Educationon 05-03-20 Patient Education Obstetrics and [...] provider. Document Revised: 12/16/2021 Document Reviewed: 12/16/2021 [email or web address] Patient Education ? 2022 [employer] [facility] [place] 05-03-2023 Screens [id number] CD:127 [facility] C Urineon 04-20-2023 Bacteria identified Cx Nom (U) Microbiology PROCEDURE: Urine Culture [R1] SOURCE: U CleanCatch BODY SITE: COLLECTED DATE/TIME: 04/18/2023 11:52 EDT RECEIVED DATE/TIME: 04/18/2023 19:20 EDT START DATE/TIME: 04/18/2023 19:20 EDT FREE TEXT SOURCE: HEIDY RANOLD PA-C, PA-C, JENNIFER E FINAL REPORTS Final [...] Locations R1: This test was performed at: [facility], [address] [place] [address], [facility]- , , [facility] Comment on above: Performed By: #### 2 075033 ####[facility] [address] [place] [address] Ambulatory Visit Summaryon 0 04-18-2023 Ambulatory Visit [...] Lisa Porras MD Where: [facility] [place] 02-23-2023 Screens [id number] CD:127 [facility] Ambulatory Visit Summaryon 0 02-22-2023 Ambulatory Visit Summary AISLINN WHEELER :1960 Visit Date:02/22/2023 Ambulatory Visit Instructions Your Diagnosis Renal mass Renal cyst Mixed incontinence Feeling of incomplete bladder emptying Glucosuria Tests Performed Urnls Dip Stick Auto w/o Microscopy POC 45498 Your Care Team Attending Physician - Lisa [...] Lisa Porras MD Where: [facility] Normal [facility] Patient Educationon 02-23-20 Patient Education Obstetrics and [...] provider. Document Revised: 12/16/2021 Document Reviewed: 12/16/2021 [email or web address] Patient Education ? 2022 [employer] Fabio Zaragoza [facility] Urology Office/Clinic Noteon 02-22-2023 Urology Office/Clinic [...] PSH lap cholecystectomy, open hysterectomy -Continues with novelty printing machine operator after referred last visit 1. Renal mass [...] stopped and the (more content not included)... [facility] Comment on above: Result Comment: Elec tronically Signed By: Vern TAVERAS, Lisa Montiel\.br\Date and Time Signed: 02/22/23 10:14 EDT\.br\Electronically Co-Signed By: Marilee Gray.br\Date and Time Co-Signed: 02/22/23 09:36 EDT Lab Reportson 02-20-2023 Lab Reports [id number]#1.00C D:127 [facility] RAD - CT Reporton 02-20-[address] - [address] Report [id number]#1.00CD :127 [facility] Physician Orderon 02-01-2023 Physician Order [id number]#1.00CD :127 [facility] Consultation Noteon 01-08-20 Consultation Note [id number]#1.00C D:127 Normal [facility] XR FOOT LT MIN 3 VIEWSon XR FOOT LT MIN 3 VIEWS Normal [facility] MG MAMM SCREEN 3D ALINE CADon 12-28-2022 MG MAMM SCREEN 3D ALINE CAD Normal [facility] XR DEXA BONE DENSITYon 12-28 XR DEXA BONE DENSITY Normal [facility] NM STRESS/REST MULTIon 12-15 NM STRESS/REST MULTI Normal [facility] XR FOOT LT MIN 3 VIEWSon XR FOOT LT MIN 3 VIEWS Normal [facility] Physician Referralon 023 Physician Referral [id number]#1.00C D:127 Normal [facility] CT FOOT LT WO CONon 10-28-19 CT FOOT LT WO CON Normal [facility] XR FOOT LT MIN 3 VIEWSon XR FOOT LT MIN 3 VIEWS Normal [facility] XR FOOT LT MIN 3 VIEWSon XR FOOT LT MIN 3 VIEWS Normal [facility] XR FOOT LT MIN 3 VIEWSon XR FOOT LT MIN 3 VIEWS Normal [facility] XR FOOT LT MIN 3 VIEWSon XR FOOT LT MIN 3 VIEWS Normal [facility] XR FOOT LT MIN 3 VIEWSon XR FOOT LT MIN 3 VIEWS Normal [facility] US KIDNEYSon 09-15-2022 US KIDNEYS Normal [facility] XR FOOT LT MIN 3 VIEWSon XR FOOT LT MIN 3 VIEWS Normal [facility] XR FOOT LT MIN 3 VIEWSon XR FOOT LT MIN 3 VIEWS Normal The [facility] XR FOOT LT MIN 3 VIEWSon XR FOOT LT MIN 3 VIEWS Normal [facility] CBC AUTO DIFFon 08-03-2022 BASO # 0.0 103/ul Normal 0.0-0.1 [facility] Comment on above: Performed By: #### C BC ####[facility] Psyvwzuviz4558 [place] [id number]. Ricardo Rocha Basophils/100 WBC (Bld) 0.5 % Normal 0.2-2.0 [facility] Comment on above: Performed By: #### C BC ####[facility] Zfyfccjtbp2900 [place] [id number]. Ricardo Rocha EO # 0.1 103/ul Normal 0.0-0.7 [facility] Comment on above: Performed By: #### C BC ####[facility] Wcsbixjunc[address] [place], [place] [address]Dr. Ricardo Rocha Eosinophils/100 WBC (Bld) 1.2 % Normal 0.9-7.0 [facility] Comment on above: Performed By: #### C BC ####[facility] Vdkiqtkqiu43[address] [place], [place] [address]Dr. Ricardo Rocha Erythrocyte distribution width (RBC) [Ratio] 15.0 % Normal 11.0-15.0 [facility] Comment on above: Performed By: #### C BC ####[facility] Ikgcqsckfg4[address] [place], [place] [address]Dr. Ricardo Rocha Hematocrit (Bld) [Volume fraction] 29.5 % Critically low 36.0-48.0 [facility] Comment on above: Performed By: #### C BC ####[facility] Zoajetdtvy2620 [place] [id number]. Ricardo Rocha Hemoglobin (Bld) [Mass/Vol] 9.3 g/dL Critically low 12.0-16.0 [facility] Comment on above: Performed By: #### C BC ####[facility] Cnrwsuadsy2250 [place] [id number]. Ricardo Rocha IG # 0.04 10e3/ul Critically high 0.00-0.03 [facility] Comment on above: Performed By: #### C BC ####[facility] Bffumnkdru5119 [place] [id number]. Ricardo Rocha IG % 0.5 % Normal 0.0-0.5 [facility] Comment on above: Performed By: #### C BC ####[facility] Gpglqqlkql5183 [place] [id number]. Ricardo Rocha LYMPH # 1.4 103/ul Normal 1.2-3.8 [facility] Comment on above: Performed By: #### C BC ####[facility] Gkdmnqsrso1062 [place], [place] [address]Tv. Ricardo Rocha Lymphocytes/100 WBC (Bld) 17.2 % Critically low 20.5-60.0 [facility] Comment on above: Performed By: #### C BC ####[facility] Bunixieeqp9054 [place] [id number]. Ricardo Rocha MANUAL DIFF REQ NO Normal [facility] Comment on above: Performed By: #### C BC ####[facility] Zezjspzkys1000 [place] [phone]. Ricardo Aj MCH (RBC) [Entitic mass] 25.2 pg Critically low 26.7-34.0 [facility] Comment on above: Performed By: #### C BC ####[facility] Bmysglinah2133 [place] [phone]. Ricardo Rocha MCHC (RBC) [Mass/Vol] 31.5 g/dL Normal 29.9-35.2 [facility] Comment on above: Performed By: #### C BC ####[facility] Ubtmpvjtun0359 [place] [phone]. Ricardo Rocha MCV (RBC) [Entitic vol] 79.9 fL Critically low 81.0-99.0 [facility] Comment on above: Performed By: #### C BC ####[facility] Bsevdpknzl1256 [place] [phone]. Ricardo Rocha MONO # 0.6 103/ul Normal 0.3-0.8 [facility] Comment on above: Performed By: #### C BC ####[facility] Oymivredfb5731 [place] [phone]. Ricardo Aj Monocytes/100 WBC (Bld) 7.6 % Normal 1.7-12.0 [facility] Comment on above: Performed By: #### C BC ####[facility] Ujithqgpdr3840 [place], [place] [address]Yb. Ricardo Rocha NEUT # 5.9 103/ul Normal 1.4-6.5 [facility] Comment on above: Performed By: #### C BC ####[facility] Yoerexttpl9198 [place], [place] [address]Hs. Ricardo Rocha Neutrophils/100 WBC (Bld) 73.0 % Normal 43.0-75.0 [facility] Comment on above: Performed By: #### C BC ####[facility] Nnovzaqpbf6023 [place] [phone]. Ricardo Rocha Platelet mean volume (Bld) [Entitic vol] 11.4 fL Normal 9.5-13.5 [facility] Comment on above: Performed By: #### C BC ####[facility] Zajusivoxu2736 [place] [phone]. Ricardo Rocha PLT 253 103/ul Normal 150-450 [facility] Comment on above: Performed By: #### C BC ####[facility] Flksnudnek3351 [place] [phone]. Ricardo Rocha RBC 3.69 106/ul Critically low 4.20-5.40 [facility] Comment on above: Performed By: #### C BC ####[facility] Oxrgbfdmlb5836 [place] [phone]. Ricardo Rocha WBC 8.0 103/ul Normal 4.0-11.0 [facility] Comment on above: Performed By: #### C BC ####[facility] Gtwrbblyoo6418 [place] [phone]. Ricardo Rocha CRPon 08-03-2022 CRP 3.1 mg/dL Critically high <=1.0 [facility] Comment on above: Performed By: #### C RP, BMP, URIC ####[facility] Tgxavkddbc0096 [place] [phone]. Ricardo Rocha CULTURE BLOODon 08-03-2022 Microscopic examination of blood, culture Culture Observations: NO GROWTH AT 5 DAYS. Normal [facility] Comment on above: Performed By: #### B LDCX2 ####[facility] Lhldayrkyg25[address] [place], [place] [address]Dr. Nanomarcial Aj Microscopic examination of blood, culture Culture Observations: NO GROWTH AT 5 DAYS. Normal [facility] Comment on above: Performed By: #### B LDCX1 ####[facility] Swvfdefxeg409180 [address] [place], [place] [address]Dr. Nanomarcial Rocha ER URINE PROFILEon 2 Bilirubin Ql (U) Negative Normal NEGATIVE [facility] Comment on above: Performed By: #### E RUR ####[facility] Obtofcnkpc8456[address] [place], [place] [address]Dr. Ricardo Rocha Clarity (U) CLEAR Normal CLEAR [facility] Comment on above: Performed By: #### E RUR ####[facility] Yadtjazyip9267[address] [place], [place] [address]Dr. Nanolan Rocha Color (U) LT. YELLOW Normal YELLOW [facility] Comment on above: Performed By: #### E RUR ####[facility] Fvotawrxsj2040[address] [place], [place] [address]Dr. Ricardo Rocha ERUAHD A micrscopic examination will be performed if indicated. Normal [facility] Comment on above: Performed By: #### E RUR ####[facility] Gmviholczq2834[address] [place], [place] [address]Dr. Nanomarcial Rocha Glucose Ql (U) 100 mg/dl Abnormal NEGATIVE [facility] Comment on above: Performed By: #### E RUR ####[facility] Xpnthkjduv9232[address] [place], [place] [address]Dr. Nanolan Rocha Hemoglobin Ql (U) Negative Normal NEGATIVE [facility] Comment on above: Performed By: #### E RUR ####[facility] Obnnfzmyzp9350[address] [place], [place] [address]Dr. Nanolan Rocha Ketones Ql (U) Negative Normal NEGATIVE [facility] Comment on above: Performed By: #### E RUR ####[facility] Bknpuxhfrj346[address] [place], [place] [address]Dr. Nanolan Rocha LEUKOCYTES Negative Normal NEGATIVE [facility] Comment on above: Performed By: #### E RUR ####[facility] Fbqahuznys036[address] [place] [address]Dr. Ricardo Rocha Nitrite Ql (U) Negative Normal NEGATIVE [facility] Comment on above: Performed By: #### E RUR ####[facility] Aebjkpqbtk6363 [place] [address]Dr. Ricardo Rocha pH (U) 6.0 [pH] Normal 5-9 [facility] Comment on above: Performed By: #### E RUR ####[facility] Dvjwmrbulm8592[address] [place], [place] [address]Dr. Ricardo Rocha SPEC GRAVITY 1.010 Normal 1.005-<=1.02 5 [facility] Comment on above: Performed By: #### E RUR ####[facility] Cefecraagp4323[address] [place], [place] [address]Dr. Ricardo Rocha UA PROTEIN Negative Normal NEGATIVE/ TRACE [facility] Comment on above: Performed By: #### E RUR ####[facility] Vnnovsvhdx4073[address] [place], [place] [address]Dr. Ricardo Rocha UR MICRO IND NOT INDICATED Normal [facility] Comment on above: Performed By: #### E RUR ####[facility] Dmlxayungs6390[address] [place], [place] [address]Dr. Ricardo Rocha Urobilinogen Qn (U) 0.2 {Madeleine'U}/dL Normal 0.2 - 1. 0 [facility] Comment on above: Performed By: #### E RUR ####[facility] Niiujrpwml2340[address] [place], [place] [address]Dr. Ricardo Rocha LACTATE/LACTIC ACIDon 2021 Lactate [Moles/Vol] 0.5 mmol/L Normal 0.4-1.9 [facility] Comment on above: Performed By: #### L ACT ####[facility] Ywyxntfntq992[address] [place], [place] [address]Dr. Ricardo Rocha PROF CHEM 8 (BAS METB)on Anion gap [Moles/Vol] 12.9 mmol/L Normal [facility] Comment on above: Performed By: #### C RP, BMP, URIC ####[facility] Mqhuflknoh0345 [place] [address]Dr. Ricardo Rocha Calcium [Mass/Vol] 9.0 mg/dL Normal 8.5-10.1 [facility] Comment on above: Performed By: #### C RP, BMP, URIC ####[facility] Zxpipudywy0074 [place] [address]Dr. Ricardo Rocha Chloride [Moles/Vol] 102 mmol/L Normal 98-107 [facility] Comment on above: Performed By: #### C RP, BMP, URIC ####[facility] Wcrmgtduul8574 [place] [address]Dr. Ricardo Rocha CO2 [Moles/Vol] 23.9 mmol/L Normal 21.0-32.0 [facility] Comment on above: Performed By: #### C RP, BMP, URIC ####[facility] Qwzaazutnl9075[address] [place], [place] [address]Dr. Ricardo Rocha Creatinine [Mass/Vol] 1.36 mg/dL Critically high 0.55-1.02 [facility] Comment on above: Performed By: #### C RP, BMP, URIC ####[facility] Crbqbbxicj2765[address] [place], [place] [address]Dr. Ricardo Rocha EGFR-AF BAHAMIAN 47 mL/min/1.73m2 Critically low >=60 [facility] Comment on above: Performed By: #### C RP, BMP, URIC ####[facility] Siwwkckpsi865[address] [place], [place] [address]Dr. Ricardo Rocha EGFR-NON AF BAHAMIAN 39 mL/min/1.73m2 Critically low >=60 [facility] Comment on above: Performed By: #### C RP, BMP, URIC ####[facility] Ooqkixpqjl437[address] [place], [place] [address]Dr. Ricardo Rocha Glucose [Mass/Vol] 125 mg/dL Critically high 74-106 [facility] Comment on above: Performed By: #### C RP, BMP, URIC ####[facility] Aezxxhvwts2865 [place] [phone]. Ricardo Rocha Potassium [Moles/Vol] 4.8 mmol/L Normal 3.5-5.1 [facility] Comment on above: Performed By: #### C RP, BMP, URIC ####[facility] Fewdeytrpg1658 [place] [address]Dr. Ricardo Rocha Sodium [Moles/Vol] 134 mmol/L Critically low 136-145 [facility] Comment on above: Performed By: #### C RP, BMP, URIC ####[facility] Cupccikqxd7936 [place] [address]Dr. Ricardo Rocha Urea nitrogen [Mass/Vol] 22.0 mg/dL Critically high 7.0-18.0 [facility] Comment on above: Performed By: #### C RP, BMP, URIC ####[facility] Bvzxomvfxg8506 [place] [address]Dr. Ricardo Rocha Urea nitrogen/Creatinine [Mass ratio] 16.2 mg/mg Normal [facility] Comment on above: Performed By: #### C RP, BMP, URIC ####[facility] Rojdxqzpwy5926 [place] [address]Dr. Ricardo Rocha [facility] SED [facility] 95 mm/hr Critically high <=30 [facility] Comment on above: Performed By: #### S EDR ####[facility] Bnhqdtaynt1455[address] [place], [place] [address]Dr. Ricardo Rocha URIC ACID SERUMon 08-03-2022 Urate [Mass/Vol] 4.7 mg/dL Normal 2.6-6.0 [facility] Comment on above: Performed By: #### C RP, BMP, URIC ####[facility] Lcrgksccsh1154[address] [place], [place] [address]Dr. Ricardo Rocha XR FOOT LT MIN 3 VIEWSon XR FOOT LT MIN 3 VIEWS Normal [facility] PROF CHEM 8 (BAS METB)on Anion gap [Moles/Vol] 13.8 mmol/L Normal [facility] Comment on above: Performed By: #### B MP ####[facility] Nlxjnwpwac3433 [place] [phone]. Ricardo Rocha Calcium [Mass/Vol] 8.9 mg/dL Normal 8.5-10.1 [facility] Comment on above: Performed By: #### B MP ####[facility] Ftvlklcard5911 [place] [phone]. Ricardo Rocha Chloride [Moles/Vol] 101 mmol/L Normal 98-107 [facility] Comment on above: Performed By: #### B MP ####[facility] Kpfawncklb1873 [place] [address]Dr. Ricardo Rocha CO2 [Moles/Vol] 22.8 mmol/L Normal 21.0-32.0 [facility] Comment on above: Performed By: #### B MP ####[facility] Tunylczybl9267[address] [place], [place] [address]Dr. Ricardo Rocha Creatinine [Mass/Vol] 1.43 mg/dL Critically high 0.55-1.02 [facility] Comment on above: Performed By: #### B MP ####[facility] Oklvmhoojs8670[address] [place], [place] [address]Dr. Ricardo Rocha EGFR-AF BAHAMIAN 45 mL/min/1.73m2 Critically low >=60 [facility] Comment on above: Performed By: #### B MP ####[facility] Zlirraozwv850[address] [place], [place] [address]Dr. Ricardo Rocha EGFR-NON AF BAHAMIAN 37 mL/min/1.73m2 Critically low >=60 [facility] Comment on above: Performed By: #### B MP ####[facility] Asbuefnraa5395[address] [place], [place] [address]Dr. Ricardo Rocha Glucose [Mass/Vol] 279 mg/dL Critically high 74-106 [facility] Comment on above: Performed By: #### B MP ####[facility] Hyoxaorbmm6496[address] [place], [place] [address]Dr. Ricardo Rocha Potassium [Moles/Vol] 4.6 mmol/L Normal 3.5-5.1 [facility] Comment on above: Performed By: #### B MP ####[facility] Ygskuhboqj8890 [place] [phone]. Ricardo Rocha Sodium [Moles/Vol] 133 mmol/L Critically low 136-145 [facility] Comment on above: Performed By: #### B MP ####[facility] Hvhjslbqnz2036 [place] [phone]. Ricardo Rocha Urea nitrogen [Mass/Vol] 24.0 mg/dL Critically high 7.0-18.0 [facility] Comment on above: Performed By: #### B MP ####[facility] Jiyupbeqzo64[address] [place], [place] [id number]. Ricardo Rocha Urea nitrogen/Creatinine [Mass ratio] 16.8 mg/mg Normal [facility] Comment on above: Performed By: #### B MP ####[facility] Hpzcojocoa640[address] [place], [place] [address]Dr. Ricardo Rocha ACID FAST SMEAR AND CXon Acid Fast Culture Negative Normal [facility] Comment on above: Result Comment: No a amilcar fast bacilli isolated after 6 weeks. Performed By: #### A FB ####[facility] Uepddxozwc28[address] [place], [place] [address]Dr. Ricardo Rocha Acid Fast Smear Negative Normal [facility] Comment on above: Performed By: #### A FB ####[facility] Cjkgbmikxe2015[address] [place], [place] [address]Dr. Ricardo Rocha [employer] Specimen Processing Direct Inoculation [facility] Comment on above: Performed By: #### A FB ####[facility] Hdwbarmjlr88[address] [place], [place] [address]Dr. Ricardo Rocha [employer] Specimen Processing Tissue Grinding [facility] Comment on above: Performed By: #### A FB ####[facility] Thkztwczxe6699[address] [place], [place] [address]Dr. Ricardo Rocha FUNGAL CULTUREon 07-11-2022 Fungus (Mycology) Culture Final report [facility] Comment on above: Performed By: #### C XFUN ####[facility] Tgdepbhmji5765[address] [place], [place] [address]Dr. Ricardo Rocha Fungus Stain Final report Normal [facility] Comment on above: Performed By: #### C XFUN ####[facility] Hqnxzvcbuy2426 [place] [address]Dr. Ricardo Rocha Result 1 Comment Normal [facility] Comment on above: Result Comment: AAYUSH/ Calcofluor preparation: no fungus observed. Performed By: #### C XFUN ####[facility] Nruwmktayq1814 [place] [address]Dr. Ricardo Rocha Result Comment: No y east or mold isolated after 4 weeks. PROF CHEM 8 (BAS METB)on Anion gap [Moles/Vol] 15.1 mmol/L Normal [facility] Comment on above: Performed By: #### B MP ####[facility] Garxfgbrfk4786[address] [place], [place] [address]Dr. Ricardo Rocha Calcium [Mass/Vol] 9.0 mg/dL Normal 8.5-10.1 [facility] Comment on above: Performed By: #### B MP ####[facility] Jghbkkpskg191380 [address] [place], [place] [address]Dr. Ricardo Rocha Chloride [Moles/Vol] 101 mmol/L Normal 98-107 [facility] Comment on above: Performed By: #### B MP ####[facility] Lcrbclqvwu4227[address] [place], [place] [address]Dr. Ricardo Rocha CO2 [Moles/Vol] 18.5 mmol/L Critically low 21.0-32.0 [facility] Comment on above: Performed By: #### B MP ####[facility] Ljxxbuelda4852 [place] [address]Dr. Ricardo Rocha Creatinine [Mass/Vol] 2.05 mg/dL Critically high 0.55-1.02 [facility] Comment on above: Performed By: #### B MP ####[facility] Gjrkyvchju7759[address] [place], [place] [address]Dr. Ricardo Rocha EGFR-AF BAHAMIAN 30 mL/min/1.73m2 Critically low >=60 [facility] Comment on above: Performed By: #### B MP ####[facility] Mbkhineicv7859 [place] [phone]. Ricardo Rocha EGFR-NON AF BAHAMIAN 24 mL/min/1.73m2 Critically low >=60 [facility] Comment on above: Performed By: #### B MP ####[facility] Bwvlphdzhe6166 [place] [phone]. Nanomarcial Rocha Glucose [Mass/Vol] 134 mg/dL Critically high 74-106 [facility] Comment on above: Performed By: #### B MP ####[facility] Icyeogvyzt1694[address] [place], [place] [address]Dr. Ricardo Rocha Potassium [Moles/Vol] 5.6 mmol/L Critically high 3.5-5.1 [facility] Comment on above: Performed By: #### B MP ####[facility] Hapzewtlxb574[address] [place], [place] [address]Dr. Ricardo Rocha Sodium [Moles/Vol] 129 mmol/L Critically low 136-145 [facility] Comment on above: Performed By: #### B MP ####[facility] Acgxuqhabu3352[address] [place], [place] [address]Dr. Ricardo Rocha Urea nitrogen [Mass/Vol] 57.0 mg/dL Critically high 7.0-18.0 [facility] Comment on above: Performed By: #### B MP ####[facility] Fcuimhasfj7776[address] [place], [place] [address]Dr. Ricardo Rocha Urea nitrogen/Creatinine [Mass ratio] 27.8 mg/mg Normal [facility] Comment on above: Performed By: #### B MP ####[facility] Ixbrcmscrz264[address] [place], [place] [address]Dr. Nanomarcial Aj CBC AUTO DIFFon 07-06-2022 BASO # 0.0 103/ul Normal 0.0-0.1 [facility] Comment on above: Performed By: #### C BC ####[facility] Hivbkhbnlm112[address] [place], [place] [address]Dr. Ricardo Rocha Basophils/100 WBC (Bld) 0.6 % Normal 0.2-2.0 [facility] Comment on above: Performed By: #### C BC ####[facility] Lxjsyepqbi4123 [place] [phone]. Ricardo Rocha EO # 0.1 103/ul Normal 0.0-0.7 [facility] Comment on above: Performed By: #### C BC ####[facility] Gfqqdiwoui4169[address] [place], [place] [address]Dr. Ricardo Rocha Eosinophils/100 WBC (Bld) 1.7 % Normal 0.9-7.0 [facility] Comment on above: Performed By: #### C BC ####[facility] Sopreaaooi8420[address] [place], [place] [address]Dr. Ricardo Rocha Erythrocyte distribution width (RBC) [Ratio] 15.2 % Critically high 11.0-15.0 [facility] Comment on above: Performed By: #### C BC ####[facility] Hkdkcyschb606[address] [place], [place] [address]Dr. Ricardo Rocha Hematocrit (Bld) [Volume fraction] 34.6 % Critically low 36.0-48.0 [facility] Comment on above: Performed By: #### C BC ####[facility] Lihzwzufyz92[address] [place], [place] [address]Dr. Ricardo Rocha Hemoglobin (Bld) [Mass/Vol] 10.5 g/dL Critically low 12.0-16.0 [facility] Comment on above: Performed By: #### C BC ####[facility] Fcsmykicfg9056[address] [place], [place] [address]Dr. Ricardo Rocha IG # 0.01 10e3/ul Normal 0.00-0.03 [facility] Comment on above: Performed By: #### C BC ####[facility] Oudgazlplx2816[address] [place], [place] [address]Dr. Ricardo Rocha IG % 0.2 % Normal 0.0-0.5 [facility] Comment on above: Performed By: #### C BC ####[facility] Znipbnmsqr484[address] [place], [place] [address]Dr. Nanomarcial Rocha LYMPH # 2.4 103/ul Normal 1.2-3.8 [facility] Comment on above: Performed By: #### C BC ####[facility] Hlxcokztkm8402 [place] [phone]. Nanomarcial Rocha Lymphocytes/100 WBC (Bld) 44.4 % Normal 20.5-60.0 [facility] Comment on above: Performed By: #### C BC ####[facility] Drfahmjcrn3449 [place] [phone]. Ricardo Rocha MANUAL DIFF REQ NO Normal [facility] Comment on above: Performed By: #### C BC ####[facility] Xfezyrsuyf9955 [place] [phone]. Ricardo Rocha MCH (RBC) [Entitic mass] 25.0 pg Critically low 26.7-34.0 [facility] Comment on above: Performed By: #### C BC ####[facility] Jmjmtcfrev5369[address] [place], [place] [address]Dr. Ricardo Rocha MCHC (RBC) [Mass/Vol] 30.3 g/dL Normal 29.9-35.2 [facility] Comment on above: Performed By: #### C BC ####[facility] Lmpqapwssf[address] [place], [place] [address]Dr. Ricardo Rocha MCV (RBC) [Entitic vol] 82.4 fL Normal 81.0-99.0 [facility] Comment on above: Performed By: #### C BC ####[facility] Yfccofrbes0857[address] [place], [place] [address]Dr. Ricardo Rocha MONO # 0.3 103/ul Normal 0.3-0.8 [facility] Comment on above: Performed By: #### C BC ####[facility] Rsvxctohgr8506[address] [place], [place] [address]Dr. Ricardo Rocha Monocytes/100 WBC (Bld) 5.1 % Normal 1.7-12.0 [facility] Comment on above: Performed By: #### C BC ####[facility] Ybxywthdiq1777[address] [place], [place] [address]Dr. Ricardo Rocha NEUT # 2.5 103/ul Normal 1.4-6.5 [facility] Comment on above: Performed By: #### C BC ####[facility] Zyxclkdlhr6370 [place] [phone]. Ricardo Rocha Neutrophils/100 WBC (Bld) 48.0 % Normal 43.0-75.0 [facility] Comment on above: Performed By: #### C BC ####[facility] Acvfrshedd9314 [place] [phone]. Ricardo Rocha Platelet mean volume (Bld) [Entitic vol] 10.7 fL Normal 9.5-13.5 [facility] Comment on above: Performed By: #### C BC ####[facility] Hljttwmbkz9264 [place] [phone]. Ricardo Rocha PLT 261 103/ul Normal 150-450 [facility] Comment on above: Performed By: #### C BC ####[facility] Swsbvwfrpc4979 [place] [phone]. Ricardo Rocha RBC 4.20 106/ul Normal 4.20-5.40 [facility] Comment on above: Performed By: #### C BC ####[facility] Akxjgndmsi9765 [place] [phone]. Ricardo Rocha WBC 5.3 103/ul Normal 4.0-11.0 [facility] Comment on above: Performed By: #### C BC ####[facility] Bevsevialc8367 [place] [phone]. Ricardo Rocha GLYCOHEMOGLOBIN A1Con 2021 ADA RECOMMENDATION SEE BELOW Normal [facility] Comment on above: Result Comment: ADA RECOMMENDED LIMIT 4.0 - 6.0 ADA THERAPEUTIC TARGET < 7.0 ACTION SUGGESTED > 7.0 Performed By: #### A 1C ####[facility] Noxqvagopu3081 [place] [phone]. Ricardo Rocha Glucose [Mass/Vol] 289 mg/dL Normal [facility] [place] [facility] Comment on above: Performed By: #### A 1C ####[facility] Tddivpewbc7402 [place] [phone]. Ricardo Rocha HbA1c (Bld) [Mass fraction] 11.7 % Critically high 4.5-6.2 [facility] Comment on above: Performed By: #### A 1C ####[facility] Owjaayueox6866 [place] [phone]. Ricardo Rocha LIPID PROFILEon 07-06-2022 CHOL-HDL RATIO NORM SEE BELOW Normal [facility] Comment on above: Result Comment: 3.3 - 4.4 LOW RISK 4.4 - 7.1 AVERAGE RISK 7.1 - 11.0 MODERATE RISK >11.0 HIGH RISK Performed By: #### T SH, CMP, LIPID ####[facility] Eyksucgwkp90[address] [place], [place] [address]Hw. Ricardo Rocha Cholesterol [Mass/Vol] 284 mg/dL Critically high <=200 [facility] Comment on above: Performed By: #### T SH, CMP, LIPID ####[facility] Uznarpqmje9660 [place], [place] [address]Jd. Ricardo Rocha Cholesterol in HDL [Mass/Vol] 40 mg/dL Normal 40-60 [facility] Comment on above: Performed By: #### T SH, CMP, LIPID ####[facility] Mkuuggphcn6103 [place] [phone]. Ricardo Rocha Cholesterol in LDL [Mass/Vol] 167.8 mg/dL Normal [facility] Comment on above: Performed By: #### T SH, CMP, LIPID ####[facility] Ctpfwveiyu7[address] [place], [place] [address]Gg. Ricardo Rocha Cholesterol.total/Ch olesterol in HDL [Mass ratio] 7.1 {ratio} Normal [facility] Comment on above: Performed By: #### T SH, CMP, LIPID ####[facility] [address] [place], [place] [address]Zr. Nanolan Rocha HDL NORMAL > or = 60 mg/dl - LO W CARDIOVASCULAR RISK <40 mg/dl - HIGH CARDIOVASCULAR RISK Normal [facility] Comment on above: Performed By: #### T SH, CMP, LIPID ####[facility] [address]ob[address] [place], [place] [address]Xh. Ricardo Rocha LDL CALC NORMAL SEE BELOW Normal [facility] Comment on above: Result Comment: <100 mg/dl OPTIMAL 100 - 129 mg/dl NEAR OR ABOVE OPTIMAL 130 - 159 mg/dl BORDERLINE HIGH 160 - 189 mg/dl HIGH >190 mg/dl VERY HIGH Performed By: #### T SH, CMP, LIPID ####[facility] [address] [place] [address]Dr. Ricardo Rocha Triglyceride [Mass/Vol] 381 mg/dL Critically high <=150 [facility] Comment on above: Performed By: #### T SH, CMP, LIPID ####[facility] Hzotuntavv5[address] [place] [address]Dr. Ricardo Rocha VLDL CALC 76.2 mg/dL Normal [facility] Comment on above: Performed By: #### T SH, CMP, LIPID ####[facility] [address]uibcbeej[address] [place] [address]Dr. Ricardo Rocha MICROALBUMIN, RAND URon 11- mALB <1.3 Normal <=30.0 [facility] Comment on above: Performed By: #### M ALBR ####[facility] [address] [place] [address]Dr. Ricardo Rocha PROF 14(COMP METB)on 022 Albumin [Mass/Vol] 3.3 g/dL Critically low 3.4-5.0 [facility] Comment on above: Performed By: #### T SH, CMP, LIPID ####[facility] Khjmbtjlil[address] [place] [address]Dr. Ricardo Rocha Albumin/Globulin [Mass ratio] 0.5 {ratio} Normal [facility] Comment on above: Performed By: #### T SH, CMP, LIPID ####[facility] Hkwenmdojx[address] [place] [address]Dr. Ricardo Rocha ALP [Catalytic activity/Vol] 129 U/L Critically high 46-116 [facility] [place] [facility] Comment on above: Performed By: #### T SH, CMP, LIPID ####[facility] Qzplggyxlb3459 [place] [address]Dr. Ricardo Rocha ALT [Catalytic activity/Vol] 22 U/L Normal 14-59 [facility] Comment on above: Performed By: #### T SH, CMP, LIPID ####[facility] Jjjksabyps45[address] [place] [address]Dr. Ricardo Rocha Anion gap [Moles/Vol] 16.1 mmol/L Normal [facility] Comment on above: Performed By: #### T SH, CMP, LIPID ####[facility] Mzmtaqvhnu4[address] [place] [address]Dr. Ricardo Rocha AST [Catalytic activity/Vol] 22 U/L Normal 15-37 [facility] [place] [facility] Comment on above: Performed By: #### T SH, CMP, LIPID ####[facility] Yvdgyuafum[address] [place] [address]Dr. Ricardo Rocha Bilirubin [Mass/Vol] 0.2 mg/dL Normal 0.2-1.0 [facility] Comment on above: Performed By: #### T SH, CMP, LIPID ####[facility] Nnjmgftuej[address] [place] [address]Dr. Ricardo Rocha Calcium [Mass/Vol] 9.4 mg/dL Normal 8.5-10.1 [facility] Comment on above: Performed By: #### T SH, CMP, LIPID ####[facility] Jmkwd[address]eh[address] [place], [place] [address]Dr. Ricardo Rocha Chloride [Moles/Vol] 102 mmol/L Normal 98-107 [facility] [place] [facility] Comment on above: Performed By: #### T SH, CMP, LIPID ####[facility] Fmdqrnnldu12[address] [place] [address]Dr. Ricardo Rocha CO2 [Moles/Vol] 18.4 mmol/L Critically low 21.0-32.0 [facility] [place] [facility] Comment on above: Performed By: #### T SH, CMP, LIPID ####[facility] Zifekjzajb[address] [place] [address]Dr. Ricardo Rocha Creatinine [Mass/Vol] 2.01 mg/dL Critically high 0.55-1.02 [facility] Comment on above: Performed By: #### T SH, CMP, LIPID ####[facility] Eswzcdhxvm[address] [place], [place] [address]Dr. Ricardo Rocha EGFR-AF BAHAMIAN 30 mL/min/1.73m2 Critically low >=60 [facility] Comment on above: Performed By: #### T SH, CMP, LIPID ####[facility] Srucfjzhkc[address] [place] [address]Dr. Ricardo Rocha EGFR-NON AF BAHAMIAN 25 mL/min/1.73m2 Critically low >=60 [facility] Comment on above: Performed By: #### T SH, CMP, LIPID ####[facility] Lmittyvldz[address] [place] [address]Dr. Ricardo Rocha Globulin (S) [Mass/Vol] 6.3 g/dL Normal [facility] Comment on above: Performed By: #### T SH, CMP, LIPID ####[facility] Ulankkkrus[address] [place] [address]Dr. Nanomarcial Rocha Glucose [Mass/Vol] 118 mg/dL Critically high 74-106 [facility] Comment on above: Performed By: #### T SH, CMP, LIPID ####[facility] Lxwanrxavp[address] [place], [place] [address]Dr. Nanomarcial Rocha Potassium [Moles/Vol] 5.5 mmol/L Critically high 3.5-5.1 [facility] Comment on above: Performed By: #### T SH, CMP, LIPID ####[facility] Noporqshba[address] [place] [address]Dr. Ricardo Rocha Protein [Mass/Vol] 9.6 g/dL Critically high 6.4-8.2 [facility] Comment on above: Performed By: #### T SH, CMP, LIPID ####[facility] Bnjqonpgfx36[address] [place] [address]Dr. Ricardo Rocha Sodium [Moles/Vol] 131 mmol/L Critically low 136-145 [facility] Comment on above: Performed By: #### T SH, CMP, LIPID ####[facility] Hrnzqikrtz8216 [place] [address]Dr. Ricrado Rocha Urea nitrogen [Mass/Vol] 45.0 mg/dL Critically high 7.0-18.0 [facility] Comment on above: Performed By: #### T SH, CMP, LIPID ####[facility] Kxuemkoqyb32[address] [place] [address]Dr. Ricardo Rocha Urea nitrogen/Creatinine [Mass ratio] 22.4 mg/mg Normal [facility] [place] [facility] Comment on above: Performed By: #### T SH, CMP, LIPID ####[facility] Auhfgehceo6[address] [place] [id number]. Ricardo Rocha TSHon 07-06-2022 TSH 1.178 uIU/mL Normal 0.358-3.740 [facility] [place] [facility] Comment on above: Performed By: #### T SH, CMP, LIPID ####[facility] Hxddwdffss5[address] [place] [address]Dr. Ricardo Rocha UA RANDOM W/MICROSCOPICon BACTERIA NONE SEEN Normal NONE SEEN [facility] [place] [facility] Comment on above: Performed By: #### U AMIC ####[facility] [address]qgxq[address] [place], [place] [address]Dr. Ricardo Rocha Bilirubin Ql (U) Negative Normal NEGATIVE [facility] Comment on above: Performed By: #### U AMIC ####[facility] U[address]qoqwyvj[address] [place], [place] [address]Dr. Ricardo Rocha CAST NONE SEEN Normal NONE SEEN [facility] Comment on above: Performed By: #### U AMIC ####[facility] Ykgfjciubx[address] [place] [address]Dr. Ricardo Rocha Clarity (U) CLEAR Normal CLEAR [facility] Comment on above: Performed By: #### U AMIC ####[facility] Vzdfrlqxft24[address] [place] [address]Dr. Ricardo Rocha Color (U) LT. YELLOW Normal YELLOW [facility] [place] [facility] Comment on above: Performed By: #### U AMIC ####[facility] Vlvkqdyrls[address] [place], [place] [address]Dr. Ricardo Rocha Crystals LM Nom (Urine sed) NONE SEEN Normal NONE SEEN [facility] [place] [facility] Comment on above: Performed By: #### U AMIC ####[facility] Mpqqqsoutq[address] [place], [place] [address]Dr. Ricardo Rocha Epithelial cells LM Ql (Urine sed) NONE SEEN Normal NONE SEEN /RARE [facility] Comment on above: Performed By: #### U AMIC ####[facility] Rvhrwiphkm2937 [place] [address]Dr. Ricardo Rocha Glucose Ql (U) Negative Normal NEGATIVE [facility] Comment on above: Performed By: #### U AMIC ####[facility] Ziqwhpjqkg5644 [place] [address]Dr. Nanomarcial Aj Hemoglobin Ql (U) Negative Normal NEGATIVE [facility] Comment on above: Performed By: #### U AMIC ####[facility] Hjnztaddrz55[address] [place] [address]Dr. Ricardo Rocha Ketones Ql (U) Negative Normal NEGATIVE [facility] Comment on above: Performed By: #### U AMIC ####[facility] [address]rrmmxzy[address] [place], [place] [address]Dr. Ricardo Rocha LEUKOCYTES Negative Normal NEGATIVE [facility] Comment on above: Performed By: #### U AMIC ####[facility] [address]kslnopxnp[address] [place] [address]Dr. Ricardo Rocha MUCOUS NONE SEEN Normal NONE SEEN [facility] Comment on above: Performed By: #### U AMIC ####[facility] Gwhmnntbzo28[address] [place] [address]Dr. Ricardo Rocha Nitrite Ql (U) Negative Normal NEGATIVE [facility] Comment on above: Performed By: #### U AMIC ####[facility] Vuntwwhvwx92[address] [place] [address]Dr. Ricardo Rocha pH (U) 5.5 [pH] Normal 5-9 [facility] Comment on above: Performed By: #### U AMIC ####[facility] Jympnneuvy[address] [place] [address]Dr. Ricardo Rocha RBC NONE SEEN Abnormal 0-2 [facility] Comment on above: Performed By: #### U AMIC ####[facility] Udjudquzlk9952 [place] [address]Dr. Ricardo Rocha SPEC GRAVITY 1.020 Normal 1.005-<=1.02 5 [facility] Comment on above: Performed By: #### U AMIC ####[facility] Keccishxgl[address] [place] [address]Dr. Ricardo Rocha UA PROTEIN Negative Normal NEGATIVE/ TRACE [facility] Comment on above: Performed By: #### U AMIC ####[facility] Fjqluzbyex[address] [place] [address]Dr. Ricardo Rocha Urobilinogen Qn (U) 0.2 {Madeleine'U}/dL Normal 0.2 - 1. 0 [facility] Comment on above: Performed By: #### U AMIC ####[facility] Ikvexbrehl[address] [place], [place] [address]Dr. Ricardo Rocha WBC NONE SEEN Normal NONE SEEN [facility] Comment on above: Performed By: #### U AMIC ####[facility] Cmwfftadkp[address] [place], [place] [address]Dr. Ricardo Rocha CBC W MANUAL DIFFon 06-16-20 22 ATYPICAL LYMPH # Normal [facility] Comment on above: Performed By: #### C BCMAN ####[facility] [address]fkamtjw[address] [place], [place] [address]Dr. Ricardo Rocha ATYPICAL LYMPH % Normal [facility] Comment on above: Performed By: #### C BCRED ####[facility] Fbrflkwxin01[address] [place], [place] [address]Dr. Ricardo Rocha BAND # 0.2 103/ul Normal 0.0-0.3 [facility] Comment on above: Performed By: #### C BCMAN ####[facility] Wgnqsenzeb[address] [place], [place] [address]Dr. Ricardo Rocha BAND % 2 % Normal 0-5 [facility] Comment on above: Performed By: #### C BCMAN ####[facility] Metetnqjpi[address] [place], [place] [address]Dr. Ricardo Rocha BASOM # 0.00 103/ul Normal 0.00-0.10 [facility] Comment on above: Performed By: #### C BCMAN ####[facility] Akfr[address]wdoz53[address] [place] [id number]. Ricardo Rocha BASOM % 0.0 % Critically low 0.2-2.0 [facility] Comment on above: Performed By: #### C BCMAN ####[facility] Winchvbfvf4797 [place] [id number]. Ricardo Rocha BLAST # Normal [facility] Comment on above: Performed By: #### C BCMAN ####[facility] Vkyjaiyiso0812 [place] [id number]. Ricardo Rocha BLAST % Normal [facility] Comment on above: Performed By: #### C BCRED ####[facility] Ndxodnzfhj9736 [place] [address]Dr. Ricardo Rocha CORRECTED WBC Normal 4.0-11.0 [facility] [place] [facility] Comment on above: Performed By: #### C BCRED ####[facility] W[address]tpr[address]wb[address] [place], [place] [address]Dr. Ricardo Rocha EOS # 0.11 103/ul Normal 0.00-0.70 [facility] Comment on above: Performed By: #### C BCRED ####[facility] Dwamhlggvj87[address] [place], [place] [address]Dr. Ricardo Rocha EOS% 1.0 % Normal 0.9-7.0 [facility] Comment on above: Performed By: #### C BCRED ####[facility] Yhqfwjrfuw94[address] [place], [place] [address]Dr. Ricardo Rocha HCT 24.2 % Critically low 36.0-48.0 [facility] Comment on above: Performed By: #### C BCRED ####[facility] Aflymbunhk2[address] [place], [place] [address]Dr. Ricardo Rocha HGB 7.9 g/dl Critically low 12.0-16.0 [facility] Comment on above: Performed By: #### C BCRED ####[facility] Wrbwladpta32[address] [place], [place] [address]Dr. Ricardo Rocha LYMPHM # 1.81 103/ul Normal 1.20-3.80 [facility] Comment on above: Performed By: #### C DWAINE ####[facility] Ebwwdifuos6604 [place] [id number]. Ricardo Rocha LYMPHM% 16.0 % Critically low 20.5-60.0 [facility] Comment on above: Performed By: #### C DWAINE ####[facility] Acdovsjjss2413 [place] [id number]. Ricardo Rocha MCH 25.2 pg Critically low 26.7-34.0 [facility] Comment on above: Performed By: #### C DWAINE ####[facility] Ofsogeyofb4097 [place] [phone]. Ricardo Rocha MCHC 32.6 g/dl Normal 29.9-35.2 [facility] Comment on above: Performed By: #### C DWAINE ####[facility] Hryoukanre5635 [place] [phone]. Ricardo Rocha MCV 77.3 fL Critically low 81.0-99.0 [facility] Comment on above: Performed By: #### C DWAINE ####[facility] Eghvvupblx4308 [place] [id number]. Ricardo Rocha METAMYELOCYTE # 0.5 103/ul Normal [facility] Comment on above: Performed By: #### C DWAINE ####[facility] Bapoiqpcpk64[address] [place] [id number]. Ricardo Rocha METAMYELOCYTE % 4 % Normal [facility] Comment on above: Performed By: #### C DWAINE ####[facility] Sldlecvucr5118 [place] [id number]. Ricardo Rocha MONOM# 0.45 103/ul Normal 0.30-0.80 [facility] Comment on above: Performed By: #### C DWAINE ####[facility] Kflbeevivm0320 [place] [id number]. Ricardo Rocha MONOM% 4.0 % Normal 1.7-12.0 [facility] Comment on above: Performed By: #### Esteban ISIDRO ####[facility] Bdoeatpvsx64[address] [place] [phone]. Ricardo Rocha MPV 10.4 fL Normal 9.5-13.5 [facility] Comment on above: Performed By: #### C DWAINE ####[facility] [address]wieqetzy[address] [place] [phone]. Ricardo Rocha MYELOCYTE # 0.5 103/ul Normal [facility] Comment on above: Performed By: #### C DWAINE ####[facility] Kujgfabrrg7227 [place] [phone]. Ricardo Rocha MYELOCYTE % 4 % Normal [facility] Comment on above: Performed By: #### C DWAINE ####[facility] Scaxmmtraa[address] [place] [address]Dr. Ricardo Rocha NRBC Normal [facility] Comment on above: Performed By: #### C DWAINE ####[facility] Sxxwhvdzap7161 [place] [phone]. Ricardo Rocha PLT 325 103/ul Normal 150-450 [facility] Comment on above: Performed By: #### C DWAINE ####[facility] Ilcyibuaoo3356 [place] [phone]. Ricardo Rocha RBC 3.13 106/ul Critically low 4.20-5.40 [facility] Comment on above: Performed By: #### C DWAINE ####[facility] Cwmiqfcsip3955 [place] [phone]. Ricardo Rocha RDW 13.7 % Normal 11.0-15.0 [facility] Comment on above: Performed By: #### C DWAINE ####[facility] Mrcvotalog0227 [place] [phone]. Ricardo Rocha SEG # 7.80 103/ul Critically high 1.40-6.50 [facility] Comment on above: Performed By: #### C DWAINE ####[facility] Jzdbdgneli4859 [place] [phone]. Ricardo Rocha SEG % 69.0 % Normal 43.0-75.0 [facility] Comment on above: Performed By: #### C BCMAN ####[facility] Qcrcfkyxzk8461 [place] [phone]. Ricardo oRcha WBC 11.3 103/ul Critically high 4.0-11.0 [facility] Comment on above: Performed By: #### C BCMAN ####[facility] Kdqftwttfv40[address] [place] [address]Dr. Ricardo Rocha PROF 14(COMP METB)on 022 Albumin [Mass/Vol] 1.7 g/dL Critically low 3.4-5.0 [facility] Comment on above: Performed By: #### C MP ####[facility] Smevahdgiz7097 [place] [address]Dr. Ricardo Rocha Albumin/Globulin [Mass ratio] 0.4 {ratio} Normal [facility] Comment on above: Performed By: #### C MP ####[facility] Xttnwxqyeg1214 [place] [address]Dr. Ricardo Rocha ALP [Catalytic activity/Vol] 174 U/L Critically high 46-116 [facility] Comment on above: Performed By: #### C MP ####[facility] Nnwstvmczn2597 [place] [address]Dr. Ricardo Rocha ALT [Catalytic activity/Vol] 14 U/L Normal 14-59 [facility] Comment on above: Performed By: #### C MP ####[facility] Tbaaqdlycx4244 [place] [address]Dr. Ricardo Rocha Anion gap [Moles/Vol] 10.8 mmol/L Normal [facility] Comment on above: Performed By: #### C MP ####[facility] Lyfeteidwc4917 [place] [address]Dr. Ricardo Rocha AST [Catalytic activity/Vol] 13 U/L Critically low 15-37 [facility] Comment on above: Performed By: #### C MP ####[facility] Lmabbkmhck1867 [place] [address]Dr. Ricardo Rocha Bilirubin [Mass/Vol] 0.3 mg/dL Normal 0.2-1.0 [facility] Comment on above: Performed By: #### C MP ####[facility] Rwczxuseya3403 [place] [phone]. Ricardo Rocha Calcium [Mass/Vol] 8.2 mg/dL Critically low 8.5-10.1 [facility] Comment on above: Performed By: #### C MP ####[facility] Fmvjqjgxrt8149 [place] [phone]. Ricardo Rocha Chloride [Moles/Vol] 104 mmol/L Normal 98-107 [facility] Comment on above: Performed By: #### C MP ####[facility] Yinkhgxzkc3474 [place] [phone]. Ricardo Rocha CO2 [Moles/Vol] 22.4 mmol/L Normal 21.0-32.0 [facility] Comment on above: Performed By: #### C MP ####[facility] Wonxlwaxce[address] [place], [place] [address]Dr. Ricardo Rocha Creatinine [Mass/Vol] 1.29 mg/dL Critically high 0.55-1.02 [facility] Comment on above: Performed By: #### C MP ####[facility] Luchicrwkd9626 [place] [phone]. Ricardo Rocha EGFR-AF BAHAMIAN 50 mL/min/1.73m2 Critically low >=60 [facility] Comment on above: Performed By: #### C MP ####[facility] Fufjejjrpu[address] [place], [place] [id number]. Ricardo Aj EGFR-NON AF BAHAMIAN 42 mL/min/1.73m2 Critically low >=60 [facility] Comment on above: Performed By: #### C MP ####[facility] Aajodwaikb6396 [place] [phone]. Ricardo Rocha Globulin (S) [Mass/Vol] 4.8 g/dL Normal [facility] Comment on above: Performed By: #### C MP ####[facility] Tayenvppbu9395 [place] [phone]. Ricardo Aj Glucose [Mass/Vol] 262 mg/dL Critically high 74-106 [facility] Comment on above: Performed By: #### C MP ####[facility] Zvesmkiryt6420 [place] [address]Dr. Ricardo Rocha Potassium [Moles/Vol] 3.2 mmol/L Critically low 3.5-5.1 [facility] Comment on above: Performed By: #### C MP ####[facility] Rfbcoeicct85[address] [place], [place] [address]Dr. Nanomarcial Rocha Protein [Mass/Vol] 6.5 g/dL Normal 6.4-8.2 [facility] Comment on above: Performed By: #### C MP ####[facility] Uibtwhkjiz7[address] [place], [place] [address]Dr. Nanomarcial Rocha Sodium [Moles/Vol] 134 mmol/L Critically low 136-145 [facility] Comment on above: Performed By: #### C MP ####[facility] Ghhvzyejmx74[address] [place], [place] [address]Dr. Ricardo Rocha Urea nitrogen [Mass/Vol] 20.0 mg/dL Critically high 7.0-18.0 [facility] Comment on above: Performed By: #### C MP ####[facility] Ykvzntlhli66[address] [place], [place] [address]Dr. Nanomarcial Rocha Urea nitrogen/Creatinine [Mass ratio] 15.5 mg/mg Normal [facility] Comment on above: Performed By: #### C MP ####[facility] Ahqgqfahji7[address] [place], [place] [address]Dr. Ricardo Rocha CBC AUTO DIFFon 06-15-2022 BASO # 0.1 103/ul Normal 0.0-0.1 [facility] Comment on above: Performed By: #### C BC ####[facility] Vkprkeuqzi06[address] [place], [place] [address]Dr. Ricardo Rocha Basophils/100 WBC (Bld) 0.7 % Normal 0.2-2.0 [facility] Comment on above: Performed By: #### C BC ####[facility] Mzncxtpgxs[address] [place], [place] [address]Dr. Ricardo Rocha EO # 0.1 103/ul Normal 0.0-0.7 [facility] Comment on above: Performed By: #### C BC ####[facility] Oznakzvhfu9165 [place] [phone]. Ricardo Rocha Eosinophils/100 WBC (Bld) 0.7 % Critically low 0.9-7.0 [facility] Comment on above: Performed By: #### C BC ####[facility] Mqcacdzmrc1255 [place] [phone]. Ricardo Rocha Erythrocyte distribution width (RBC) [Ratio] 13.7 % Normal 11.0-15.0 [facility] Comment on above: Performed By: #### C BC ####[facility] Xkeqvxejsg6728 [place] [address]Dr. Ricardo Rocha Hematocrit (Bld) [Volume fraction] 26.7 % Critically low 36.0-48.0 [facility] Comment on above: Performed By: #### C BC ####[facility] Jjjwyashrb95[address] [place], [place] [address]Dr. Ricardo Rocha Hemoglobin (Bld) [Mass/Vol] 8.4 g/dL Critically low 12.0-16.0 [facility] Comment on above: Performed By: #### C BC ####[facility] Ehzuojyoyp[address] [place], [place] [address]Dr. Ricardo Rocha IG # 0.83 10e3/ul Critically high 0.00-0.03 [facility] Comment on above: Performed By: #### C BC ####[facility] Olptahxnqk5920 [place] [address]Dr. Ricardo Rocha IG % 6.2 % Critically high 0.0-0.5 [facility] Comment on above: Performed By: #### C BC ####[facility] Ajqrfseqll15[address] [place], [place] [address]Dr. Ricardo Rocha LYMPH # 1.3 103/ul Normal 1.2-3.8 [facility] Comment on above: Performed By: #### C BC ####[facility] Rmbkffhfvc3755 [place] [phone]. Ricardo Rocha Lymphocytes/100 WBC (Bld) 9.6 % Critically low 20.5-60.0 [facility] Comment on above: Performed By: #### C BC ####[facility] Tusuqevclp[address] [place] [address]Dr. Ricardo Rocha MANUAL DIFF REQ NO Normal [facility] Comment on above: Performed By: #### C BC ####[facility] Jlilzdkecd7263 [place] [phone]. Ricardo Rocha MCH (RBC) [Entitic mass] 25.1 pg Critically low 26.7-34.0 [facility] Comment on above: Performed By: #### C BC ####[facility] Snykljzwod6676 [place] [address]Dr. Ricardo Rocha MCHC (RBC) [Mass/Vol] 31.5 g/dL Normal 29.9-35.2 [facility] Comment on above: Performed By: #### C BC ####[facility] Wkvfjdfcfa[address] [place], [place] [address]Dr. Ricardo Rocha MCV (RBC) [Entitic vol] 79.7 fL Critically low 81.0-99.0 [facility] Comment on above: Performed By: #### C BC ####[facility] Fqlwpoumos6[address] [place], [place] [address]DrIrina Rocha MONO # 1.0 103/ul Critically high 0.3-0.8 [facility] Comment on above: Performed By: #### C BC ####[facility] Mtkffqixiu69[address] [place], [place] [address]Dr. Ricardo Rocha Monocytes/100 WBC (Bld) 7.3 % Normal 1.7-12.0 [facility] Comment on above: Performed By: #### C BC ####[facility] Sxzkcujwyb4[address] [place], [place] [address]DrIrina Rocha NEUT # 10.2 103/ul Critically high 1.4-6.5 [facility] Comment on above: Performed By: #### C BC ####[facility] Wsarcoznnk[address] [place], [place] [address]DrIrina Rocha Neutrophils/100 WBC (Bld) 75.5 % Critically high 43.0-75.0 [facility] Comment on above: Performed By: #### C BC ####[facility] Jpkuwybvea8809 [place] [phone]. Ricardo Rocha Platelet mean volume (Bld) [Entitic vol] 11.8 fL Normal 9.5-13.5 [facility] Comment on above: Performed By: #### C BC ####[facility] Bdjhvtcpsa1535 [place] [phone]. Ricardo Rocha PLT 208 103/ul Normal 150-450 [facility] Comment on above: Performed By: #### C BC ####[facility] Nlerijoriz1581 [place] [phone]. Ricardo Rocha RBC 3.35 106/ul Critically low 4.20-5.40 [facility] Comment on above: Performed By: #### C BC ####[facility] Epnjpmnroh8299 [place] [phone]. Ricardo Rocha WBC 13.5 103/ul Critically high 4.0-11.0 [facility] Comment on above: Performed By: #### C BC ####[facility] Xqzeyimzyf9847 [place] [phone]. Ricardo Rocha CULTURE BLOODon 06-15-2022 Microscopic examination of blood, culture Culture Observations: NO GROWTH AT 5 DAYS Normal [facility] Comment on above: Performed By: #### B LDCX2 ####[facility] Enmqmetuec0183 [place] [phone]. Ricardo Rocha Microscopic examination of blood, culture Culture Observations: NO GROWTH AT 5 DAYS Normal [facility] Comment on above: Performed By: #### B LDCX1 ####[facility] [address] [place] [id number]. Ricardo Rocha [facility] ([facility])on 05-22 SARS-CoV-2 (COVID-19) RNA ADRIEL+probe Ql (Unsp spec) Not detected Normal NOT DETECTED [facility] Comment on above: Result Comment: When [...] for this test is supported by the [employer] Supervisor of Health and Human Service's declaration that [...] be used). Performed By: #### C VDTB ####[facility] Vujwadeccu[address] [place] [address]Dr. Ricardo Rocha POINT OF CARE GLUCOSEon 05-22 Glucose [Mass/Vol] 366 mg/dL Critically high [address] [place] [address] Comment on above: Performed By: #### P OCGLUC ####[facility] Hhwbwzrkih[address] [place], [place] [address]Dr. Ricardo Rocha Glucose [Mass/Vol] 229 mg/dL Critically high [address] [place] [address] Comment on above: Performed By: #### P OCGLUC ####[facility] Iqtzhfkjhw[address] [place] [address]Dr. Ricardo Rocha Glucose [Mass/Vol] 258 mg/dL Critically high -106 [facility] Comment on above: Performed By: #### P OCGLUC ####[facility] Icyrqnwczv15[address] [place] [address]Dr. Ricardo Rocha PROF 14(COMP METB)on 022 Albumin [Mass/Vol] 1.8 g/dL Critically low 3.4-5.0 [facility] Comment on above: Performed By: #### C MP ####[facility] Hhzpfjpghx[address] [place], [place] [address]Dr. Ricardo Rocha Albumin/Globulin [Mass ratio] 0.4 {ratio} Normal [facility] Comment on above: Performed By: #### C MP ####[facility] Ktqwwnvzzd[address] [place] [address]Dr. Ricardo Rocha ALP [Catalytic activity/Vol] 196 U/L Critically high 46-116 [facility] Comment on above: Performed By: #### C MP ####[facility] Autlgcphcn[address] [place] [address]Dr. Ricardo Rocha ALT [Catalytic activity/Vol] 18 U/L Normal 14-59 [facility] Comment on above: Performed By: #### C MP ####[facility] Nkphrnixpx4[address] [place] [address]Dr. Ricardo Rocha Anion gap [Moles/Vol] 16.3 mmol/L Normal [facility] Comment on above: Performed By: #### C MP ####[facility] Hhetgqgjby0[address] [place], [place] [address]Dr. Ricardo Rocha AST [Catalytic activity/Vol] 22 U/L Normal 15-37 [facility] Comment on above: Performed By: #### C MP ####[facility] Sttoisglqu2[address] [place], [place] [address]Dr. Ricardo Rocha Bilirubin [Mass/Vol] 0.4 mg/dL Normal 0.2-1.0 [facility] Comment on above: Performed By: #### C MP ####[facility] Rmnvjpbxca47[address] [place], [place] [address]Dr. Ricardo Aj Calcium [Mass/Vol] 8.2 mg/dL Critically low 8.5-10.1 [facility] Comment on above: Performed By: #### C MP ####[facility] Kaswduamyw48[address] [place], [place] [address]Dr. Ricardo Aj Chloride [Moles/Vol] 103 mmol/L Normal 98-107 [facility] Comment on above: Performed By: #### C MP ####[facility] Yineongmno7[address] [place], [place] [address]Dr. Ricardo Rocha CO2 [Moles/Vol] 19.0 mmol/L Critically low 21.0-32.0 [facility] Comment on above: Performed By: #### C MP ####[facility] Hxiazniprp7[address] [place] [address]Dr. Ricardo Rocha Creatinine [Mass/Vol] 1.32 mg/dL Critically high 0.55-1.02 [facility] Comment on above: Performed By: #### C MP ####[facility] Vocskuqxib2760 [place] [id number]. Ricardo Rocha EGFR-AF BAHAMIAN 49 mL/min/1.73m2 Critically low >=60 [facility] Comment on above: Performed By: #### C MP ####[facility] Annomqkdfv11[address] [place] [address]Dr. Ricardo Aj EGFR-NON AF BAHAMIAN 41 mL/min/1.73m2 Critically low >=60 [facility] Comment on above: Performed By: #### C MP ####[facility] Ejkaozuktq1250 [place] [address]Dr. Ricardo Aj Globulin (S) [Mass/Vol] 5.0 g/dL Normal [facility] Comment on above: Performed By: #### C MP ####[facility] Ovwvjcbdba3[address] [place] [address]Dr. Ricardo Aj Glucose [Mass/Vol] 228 mg/dL Critically high 74-106 [facility] Comment on above: Performed By: #### C MP ####[facility] Bxphxiqxox75[address] [place] [address]Dr. Ricardo Rocha Potassium [Moles/Vol] 3.3 mmol/L Critically low 3.5-5.1 [facility] Comment on above: Performed By: #### C MP ####[facility] Akzoidtgzv0899 [place] [address]Dr. Ricardo Rocha Protein [Mass/Vol] 6.8 g/dL Normal 6.4-8.2 [facility] Comment on above: Performed By: #### C MP ####[facility] Eahvpgfdha7226 [place] [address]Dr. Ricardo Rocha Sodium [Moles/Vol] 135 mmol/L Critically low 136-145 [facility] Comment on above: Performed By: #### C MP ####[facility] Ofkidottzu97[address] [place], [place] [address]Dr. Ricardo Rocha Urea nitrogen [Mass/Vol] 23.0 mg/dL Critically high 7.0-18.0 [facility] Comment on above: Performed By: #### C MP ####[facility] Yewrubsvpx8[address] [place], [place] [address]Dr. Ricardo Rocha Urea nitrogen/Creatinine [Mass ratio] 17.4 mg/mg Normal [facility] Comment on above: Performed By: #### C MP ####[facility] Qvtarbkrkr4722[address] [place], [place] [address]Dr. Ricardo Rocha UA (CLEAN/CATCH) CHANGE MANAGEMENT EXPERT/MICRO I F IND.on 06-15-2022 Bilirubin Ql (U) Negative Normal NEGATIVE [facility] Comment on above: Performed By: #### U MICRO, UACSIND ####[facility] Jowmodskat4038[address] [place], [place] [address]Dr. Ricardo Rocha Clarity (U) CLEAR Normal CLEAR [facility] Comment on above: Performed By: #### U MICRO, UACSIND ####[facility] Urcilsjwbm0799[address] [place], [place] [address]Dr. Ricardo Rocha Color (U) LT. YELLOW Normal YELLOW [facility] Comment on above: Performed By: #### U MICRO, UACSIND ####[facility] Ancjktskoa6236[address] [place], [place] [address]Dr. Ricardo Rocha Glucose Ql (U) 250 mg/dl Abnormal NEGATIVE [facility] Comment on above: Performed By: #### U MICRO, UACSIND ####[facility] Occgpfnbvo495[address] [place], [place] [address]Dr. Ricardo Rocha Hemoglobin Ql (U) TRACE-LYSED Abnormal NEGATIVE [facility] Comment on above: Performed By: #### U MICRO, UACSIND ####[facility] Uarxajnkmt7939[address] [place], [place] [address]Dr. Ricardo Rocha Ketones Ql (U) 15 mg/dl Abnormal NEGATIVE [facility] Comment on above: Performed By: #### U MICRO, UACSIND ####[facility] Melahqqlkr4[address] [place] [address]Dr. Ricardo Rocha LEUKOCYTES Negative Normal NEGATIVE [facility] Comment on above: Performed By: #### U MICRO, UACSIND ####[facility] Voxssarzcz97[address] [place] [address]Dr. Nanomarcial Rocha Nitrite Ql (U) Negative Normal NEGATIVE [facility] Comment on above: Performed By: #### U MICRO, UACSIND ####[facility] Hckeldylgm[address] [place] [address]Dr. Ricardo Rocha pH (U) 6.0 [pH] Normal 5-9 [facility] Comment on above: Performed By: #### U MICRO, UACSIND ####[facility] Tlbnughcqu[address] [place] [address]Dr. Ricardo Rocha SPEC GRAVITY 1.010 Normal 1.005-<=1.02 5 [facility] Comment on above: Performed By: #### U MICRO, UACSIND ####[facility] Ilcejqcnxs7356 [place] [address]Dr. Ricardo Rocha UA PROTEIN Negative Normal NEGATIVE/ TRACE [facility] Comment on above: Performed By: #### U MICRO, UACSIND ####[facility] Cgiphbywwe9158[address] [place], [place] [address]Dr. Ricardo Rocha UR MICRO IND INDICATED Normal [facility] Comment on above: Performed By: #### U MICRO, UACSIND ####[facility] Plsnihmsut86[address] [place] [address]Dr. Ricardo Rocha Urobilinogen Qn (U) 0.2 {Madeleine'U}/dL Normal 0.2 - 1. 0 [facility] Comment on above: Performed By: #### U MICRO, UACSIND ####[facility] Mccnsgpspm28[address] [place], [place] [address]Dr. Ricardo Rocha URINE MICROSCOPIC ONLYon BACTERIA NONE SEEN Normal NONE SEEN [facility] Comment on above: Performed By: #### U MICRO, UACSIND ####[facility] Lstylawogc[address] [place], [place] [id number]. Ricardo Rocha Bacteria identified Cx Nom (U) NOT INDICATED Normal [facility] Comment on above: Performed By: #### U MICRO, UACSIND ####[facility] Zthtcwgnwv[address] [place] [address]Dr. Ricardo Rocha CAST NONE SEEN Normal NONE SEEN [facility] Comment on above: Performed By: #### U MICRO, UACSIND ####[facility] Tvafdfcmon39[address] [place] [address]Dr. Ricardo Rocha Crystals LM Nom (Urine sed) NONE SEEN Normal NONE SEEN [facility] Comment on above: Performed By: #### U MICRO, UACSIND ####[facility] Wwqmrdiqtn86[address] [place], [place] [address]Dr. Ricardo Rocha Epithelial cells LM Ql (Urine sed) FEW Abnormal NONE SEEN /RARE [facility] Comment on above: Performed By: #### U MICRO, UACSIND ####[facility] Vgewsaamkh992[address] [place], [place] [address]Dr. Ricardo Rocha MUCOUS NONE SEEN Normal NONE SEEN [facility] Comment on above: Performed By: #### U MICRO, UACSIND ####[facility] Honvewexdu4627[address] [place], [place] [address]Dr. Ricardo Rocha RBC 2-5 Abnormal 0-2 [facility] Comment on above: Performed By: #### U MICRO, UACSIND ####[facility] Ouphdfxdok6568[address] [place], [place] [address]Dr. Ricardo Rocha WBC 2-5 Abnormal NONE SEEN [facility] Comment on above: Performed By: #### U MICRO, UACSIND ####[facility] Ovmpwwhljw826[address] [place], [place] [address]Dr. Ricardo Rocha YEAST PRESENT Abnormal NONE SEEN [facility] Comment on above: Performed By: #### U MICRO, UACSIND ####[facility] Cmvuaheymf385[address] [place], [place] [address]Dr. Ricardo Rocha CBC AUTO DIFFon 06-14-2022 BASO # 0.0 103/ul Normal 0.0-0.1 [facility] Comment on above: Performed By: #### C BC ####[facility] Tvwlzoqhjs4206 [place] [id number]. Ricardo Rocha Basophils/100 WBC (Bld) 0.4 % Normal 0.2-2.0 [facility] Comment on above: Performed By: #### C BC ####[facility] Wjwgqgvlwb3888 [place] [id number]. Ricardo Rocha EO # 0.0 103/ul Normal 0.0-0.7 [facility] Comment on above: Performed By: #### C BC ####[facility] F[address]jukjmf[address] [place], [place] [address]Dr. Ricardo Rocha Eosinophils/100 WBC (Bld) 0.4 % Critically low 0.9-7.0 [facility] Comment on above: Performed By: #### C BC ####[facility] Xkgbmhfaxu2012[address] [place], [place] [address]Dr. Ricardo Rocha Erythrocyte distribution width (RBC) [Ratio] 13.8 % Normal 11.0-15.0 [facility] Comment on above: Performed By: #### C BC ####[facility] Qexvxqcffs[address] [place], [place] [address]Dr. Ricardo Rocha Hematocrit (Bld) [Volume fraction] 26.2 % Critically low 36.0-48.0 [facility] Comment on above: Performed By: #### C BC ####[facility] Cfzeycuxmt9[address] [place], [place] [address]Dr. Ricardo Rocha Hemoglobin (Bld) [Mass/Vol] 8.3 g/dL Critically low 12.0-16.0 [facility] Comment on above: Performed By: #### C BC ####[facility] Lauvfecowu3[address] [place], [place] [address]Dr. Ricardo Rocha IG # 0.24 10e3/ul Critically high 0.00-0.03 [facility] Comment on above: Performed By: #### C BC ####[facility] Krmazhkqby8[address] [place], [place] [address]Dr. Ricardo Rocha IG % 2.3 % Critically high 0.0-0.5 [facility] Comment on above: Performed By: #### C BC ####[facility] Gqrqupxmix3881 [place] [id number] Rocha LYMPH # 1.1 103/ul Critically low 1.2-3.8 [facility] Comment on above: Performed By: #### C BC ####[facility] Zwpwxcaljy5880 [place] [id number]. Ricardo Rocha Lymphocytes/100 WBC (Bld) 10.2 % Critically low 20.5-60.0 [facility] Comment on above: Performed By: #### C BC ####[facility] Dpkixjsbuj1188 [place] [id number]. Ricardo Rocha MANUAL DIFF REQ NO Normal [facility] Comment on above: Performed By: #### C BC ####[facility] Fysewafzxf9636 [place] [address]DrIrina Rocha MCH (RBC) [Entitic mass] 25.5 pg Critically low 26.7-34.0 [facility] Comment on above: Performed By: #### C BC ####[facility] Asicdzeltt2669 [place] [id number]. Ricardo Rocha MCHC (RBC) [Mass/Vol] 31.7 g/dL Normal 29.9-35.2 [facility] Comment on above: Performed By: #### C BC ####[facility] Wvdnkzgfsi9107 [place] [id number] Rocha MCV (RBC) [Entitic vol] 80.6 fL Critically low 81.0-99.0 [facility] Comment on above: Performed By: #### C BC ####[facility] Wabsnempqs0816 [place] [id number] Rocha MONO # 0.7 103/ul Normal 0.3-0.8 [facility] Comment on above: Performed By: #### C BC ####[facility] Nvwopvlndq7807 [place] [id number] Rocha Monocytes/100 WBC (Bld) 6.7 % Normal 1.7-12.0 [facility] Comment on above: Performed By: #### C BC ####[facility] Ryvslsgzxk6625 [place] [id number]. Ricardo Rocha NEUT # 8.5 103/ul Critically high 1.4-6.5 [facility] Comment on above: Performed By: #### C BC ####[facility] Gvyrwjbkgp6572 [place] [id number]. Ricardo Rocha Neutrophils/100 WBC (Bld) 80.0 % Critically high 43.0-75.0 [facility] Comment on above: Performed By: #### C BC ####[facility] Ffpetmazzd8049 [place] [address]Dr. Ricardo Rocha Platelet mean volume (Bld) [Entitic vol] 12.1 fL Normal 9.5-13.5 [facility] Comment on above: Performed By: #### C BC ####[facility] Wupzrodoov2[address] [place] [address]Dr. Ricardo Rocha PLT 173 103/ul Normal 150-450 [facility] Comment on above: Performed By: #### C BC ####[facility] Nkryonxxvk4195 [place] [id number]. Ricardo Rocha RBC 3.25 106/ul Critically low 4.20-5.40 [facility] Comment on above: Performed By: #### C BC ####[facility] Wrifaczdsl0448 [place] [id number]. Ricardo Rocha WBC 10.6 103/ul Normal 4.0-11.0 [facility] Comment on above: Performed By: #### C BC ####[facility] Qgdspnnrxs0866 [place] [id number]. Ricardo Rocha POINT OF CARE GLUCOSEon 05-22 Glucose [Mass/Vol] 237 mg/dL Critically high 74-106 [facility] Comment on above: Performed By: #### P OCGLUC ####[facility] Qtiqrefcqj2951 [place] [id number]. Ricardo Aj Glucose [Mass/Vol] 296 mg/dL Critically high 74-106 [facility] Comment on above: Performed By: #### P OCGLUC ####[facility] Qdmgdphbwi3698 [place] [address]Dr. Ricardo Rocha Glucose [Mass/Vol] 406 mg/dL Critically high 74-106 [facility] Comment on above: Performed By: #### P OCGLUC ####[facility] Wzajyfpzxe1203 [place] [address]Dr. Ricardo Rocha Glucose [Mass/Vol] 447 mg/dL Critically high 74-106 [facility] Comment on above: Performed By: #### P OCGLUC ####[facility] Snkcqwhgje0496 [place] [address]Dr. Ricardo Rocha Glucose [Mass/Vol] 319 mg/dL Critically high 74-106 [facility] Comment on above: Performed By: #### P OCGLUC ####[facility] Qnyirklpmv1567 [place] [address]Dr. Ricardo Rocha PROF 14(COMP METB)on 022 Albumin [Mass/Vol] 1.6 g/dL Critically low 3.4-5.0 [facility] Comment on above: Performed By: #### C MP ####[facility] Ihleotuxtn37[address] [place], [place] [address]Dr. Nanomarcial Aj Albumin/Globulin [Mass ratio] 0.3 {ratio} Normal [facility] Comment on above: Performed By: #### C MP ####[facility] Vzqizvhsmy1807 [place] [address]Dr. Nanomarcial Aj ALP [Catalytic activity/Vol] 201 U/L Critically high 46-116 [facility] Comment on above: Performed By: #### C MP ####[facility] Oaskycexja1431 [place] [address]Dr. Ricardo Rocha ALT [Catalytic activity/Vol] 23 U/L Normal 14-59 [facility] Comment on above: Performed By: #### C MP ####[facility] Uzgieqnpac5710 [place] [address]Dr. Ricardo Rocha Anion gap [Moles/Vol] 16.0 mmol/L Normal [facility] Comment on above: Performed By: #### C MP ####[facility] Dfeuyamqym3233 [place] [address]Dr. Ricardo Rocha AST [Catalytic activity/Vol] 21 U/L Normal 15-37 [facility] Comment on above: Performed By: #### C MP ####[facility] Ofswkvqqlt1884 [place] [id number]. Ricardo Rocha Bilirubin [Mass/Vol] 0.4 mg/dL Normal 0.2-1.0 [facility] Comment on above: Performed By: #### C MP ####[facility] Rejhknbpbu6963[address] [place], [place] [address]Dr. Ricardo Aj Calcium [Mass/Vol] 7.6 mg/dL Critically low 8.5-10.1 [facility] Comment on above: Performed By: #### C MP ####[facility] Bccdkzvxgt488[address] [place], [place] [address]Dr. Ricardo Aj Chloride [Moles/Vol] 105 mmol/L Normal 98-107 [facility] Comment on above: Performed By: #### C MP ####[facility] Lnhutrhhvy376[address] [place], [place] [address]Dr. Ricardo Aj CO2 [Moles/Vol] 17.3 mmol/L Critically low 21.0-32.0 [facility] Comment on above: Performed By: #### C MP ####[facility] Tzeojianwp984[address] [place], [place] [address]Dr. Ricardo Aj Creatinine [Mass/Vol] 1.54 mg/dL Critically high 0.55-1.02 [facility] Comment on above: Performed By: #### C MP ####[facility] Rwbumqwepw8708[address] [place], [place] [address]Dr. Ricardo Rocha EGFR-AF BAHAMIAN 41 mL/min/1.73m2 Critically low >=60 [facility] Comment on above: Performed By: #### C MP ####[facility] Zwwazieplx7869[address] [place], [place] [address]Dr. Ricardo Rocha EGFR-NON AF BAHAMIAN 34 mL/min/1.73m2 Critically low >=60 [facility] Comment on above: Performed By: #### C MP ####[facility] Zjicbfgnco5767 [place] [address]Dr. Ricardo Rocha Globulin (S) [Mass/Vol] 4.7 g/dL Normal [facility] Comment on above: Performed By: #### C MP ####[facility] Ljrontvank7767[address] [place], [place] [address]Dr. Ricardo Rocha Glucose [Mass/Vol] 277 mg/dL Critically high 74-106 [facility] Comment on above: Performed By: #### C MP ####[facility] Cilvlcyfrh4264[address] [place], [place] [address]Dr. Ricardo Aj Potassium [Moles/Vol] 3.3 mmol/L Critically low 3.5-5.1 [facility] Comment on above: Performed By: #### C MP ####[facility] Gchmlrcliw8615[address] [place], [place] [address]Dr. Ricardo Rocha Protein [Mass/Vol] 6.3 g/dL Critically low 6.4-8.2 [facility] Comment on above: Performed By: #### C MP ####[facility] Tnxnrtysem232[address] [place], [place] [address]Dr. Ricardo Rocha Sodium [Moles/Vol] 135 mmol/L Critically low 136-145 [facility] Comment on above: Performed By: #### C MP ####[facility] Uehcuyjgwo5835[address] [place], [place] [address]Dr. Ricardo Rocha Urea nitrogen [Mass/Vol] 29.0 mg/dL Critically high 7.0-18.0 [facility] Comment on above: Performed By: #### C MP ####[facility] Vfggudicuo137[address] [place], [place] [address]Dr. Ricardo Aj Urea nitrogen/Creatinine [Mass ratio] 18.8 mg/mg Normal [facility] Comment on above: Performed By: #### C MP ####[facility] Gzzyssuxhy0557[address] [place], [place] [address]Dr. Ricardo Aj CBC AUTO DIFFon 06-13-2022 BASO # 0.0 103/ul Normal 0.0-0.1 [facility] Comment on above: Performed By: #### C BC ####[facility] Bxplbprbiy2254 [place] [address]Dr. Ricardo Rocha Basophils/100 WBC (Bld) 0.2 % Normal 0.2-2.0 [facility] Comment on above: Performed By: #### C BC ####[facility] Hoycfkoshq0416[address] [place], [place] [address]Dr. Ricardo Rocha EO # 0.1 103/ul Normal 0.0-0.7 [facility] Comment on above: Performed By: #### C BC ####[facility] Nlkobmcvtz8143[address] [place], [place] [address]Dr. Ricardo Rocha Eosinophils/100 WBC (Bld) 0.6 % Critically low 0.9-7.0 [facility] Comment on above: Performed By: #### C BC ####[facility] Mhcqlppaga9178[address] [place], [place] [address]Dr. Ricardo Rocha Erythrocyte distribution width (RBC) [Ratio] 14.2 % Normal 11.0-15.0 [facility] Comment on above: Performed By: #### C BC ####[facility] Rvyhiqoboa714[address] [place], [place] [address]Dr. Ricardo Rocha Hematocrit (Bld) [Volume fraction] 27.9 % Critically low 36.0-48.0 [facility] Comment on above: Performed By: #### C BC ####[facility] Ucaucgedla767[address] [place], [place] [address]Dr. Ricardo Rocha Hemoglobin (Bld) [Mass/Vol] 8.6 g/dL Critically low 12.0-16.0 [facility] Comment on above: Performed By: #### C BC ####[facility] Mnckyhszpf2106[address] [place], [place] [address]Dr. Nanomarcial Rocha IG # 0.08 10e3/ul Critically high 0.00-0.03 [facility] Comment on above: Performed By: #### C BC ####[facility] Y[address]lygmmx[address] [place] [address]Rm. Nanomarcial Rocha IG % 0.8 % Critically high 0.0-0.5 [facility] Comment on above: Performed By: #### C BC ####[facility] Kslenskbgi3265 [place] [address]Dr. Nanomarcial Aj LYMPH # 0.9 103/ul Critically low 1.2-3.8 [facility] Comment on above: Performed By: #### C BC ####[facility] Rucpnryhgl8827 [place] [address]Dr. Ricardo Aj Lymphocytes/100 WBC (Bld) 8.9 % Critically low 20.5-60.0 [facility] Comment on above: Performed By: #### C BC ####[facility] Rnjoqzirva7133 [place] [address]Dr. Ricardo Rocha MANUAL DIFF REQ NO Normal [facility] Comment on above: Performed By: #### C BC ####[facility] Dpdxikmlgq4383 [place] [address]Dr. Ricardo Aj MCH (RBC) [Entitic mass] 25.1 pg Critically low 26.7-34.0 [facility] Comment on above: Performed By: #### C BC ####[facility] Fthsodfvmx[address] [place], [place] [address]Dr. Ricardo Rocha MCHC (RBC) [Mass/Vol] 30.8 g/dL Normal 29.9-35.2 [facility] Comment on above: Performed By: #### C BC ####[facility] Qmnxxqhawr6077 [place] [address]Dr. Ricardo Aj MCV (RBC) [Entitic vol] 81.6 fL Normal 81.0-99.0 [facility] Comment on above: Performed By: #### C BC ####[facility] Rohsjjjwib0[address] [place], [place] [address]Dr. Ricardo Rocha MONO # 0.6 103/ul Normal 0.3-0.8 [facility] Comment on above: Performed By: #### C BC ####[facility] Dgcfvrwyvr889[address] [place], [place] [address]Dr. Ricardo Rocha Monocytes/100 WBC (Bld) 5.7 % Normal 1.7-12.0 [facility] Comment on above: Performed By: #### C BC ####[facility] Pisyvkqogy0702 [place] [address]Dr. Ricardo Rocha NEUT # 8.4 103/ul Critically high 1.4-6.5 [facility] Comment on above: Performed By: #### C BC ####[facility] Ymtsykgpur6388 [place] [address]Dr. Ricardo Rocha Neutrophils/100 WBC (Bld) 83.8 % Critically high 43.0-75.0 [facility] Comment on above: Performed By: #### C BC ####[facility] Fdxibkxxur2349 [place] [address]Dr. Ricardo Rocha Platelet mean volume (Bld) [Entitic vol] 12.1 fL Normal 9.5-13.5 [facility] Comment on above: Performed By: #### C BC ####[facility] Zfvfmsqirg5156 [place] [address]Dr. Ricardo Rocha PLT 149 103/ul Critically low 150-450 [facility] Comment on above: Performed By: #### C BC ####[facility] Dhcvuvamuw4555 [place] [address]Dr. Ricardo Rocha RBC 3.42 106/ul Critically low 4.20-5.40 [facility] Comment on above: Performed By: #### C BC ####[facility] Zceokghbte3218 [place] [address]Dr. Ricardo Rocha WBC 10.0 103/ul Normal 4.0-11.0 [facility] Comment on above: Performed By: #### C BC ####[facility] Czkikvxzlv0536 [place] [address]Dr. Ricardo Rocha CULTURE OTHERon 06-13-2022 CULTURE OTHER Normal [facility] Comment on above: Performed By: #### O THCX ####[facility] Mhanmhjloa[address] [place], [place] [address]Dr. Ricardo Rocha CULTURE OTHER Normal [facility] Comment on above: Performed By: #### O THCX ####[facility] [address] [place] [id number]. Nanomarcial Rocha CULTURE OTHER Normal The [facility] Comment on above: Performed By: #### O THCX ####[facility] Csvtcmgxzs6591 [place] [id number]. Nanomarcial Rocha GI PANEL (PCR)on 06-13-2022 Adenovirus F 40/41 Not detected Normal NOT DETECTED [facility] Comment on above: Performed By: #### G IPANEL ####[facility] Sspfhpzfmj[address] [place], [place] [id number]. Ricardo Rocha Astrovirus Not detected Normal NOT DETECTED The [facility] Comment on above: Performed By: #### G IPANEL ####[facility] Krinzdvcwf[address] [place], [place] [address]Dr. Ricardo Rocha C. Diff toxin A/B Not detected Normal NOT DETECTED [facility] Comment on above: Performed By: #### G IPANEL ####[facility] Fiyjxumkzr[address] [place], [place] [address]Dr. Ricardo Rocha Campylobacter Not detected Normal NOT DETECTED The [facility] Comment on above: Performed By: #### G IPANEL ####[facility] Xnpvphusdt[address] [place], [place] [address]Dr. Ricardo Rocha Cryptosporidium Not detected Normal NOT DETECTED The [facility] Comment on above: Performed By: #### G IPANEL ####[facility] Mpxwbvxocm7139 [place] [id number]. Ricardo Rocha Cyclos. Cayetanensis Not detected Normal NOT DETECTED [facility] Comment on above: Performed By: #### G IPANEL ####[facility] Xxgbssanuz66[address] [place], [place] [address]Dr. Ricardo Rocha E. Coli O157 Not Applicable Normal Not Applicable [facility] Comment on above: Performed By: #### G IPANEL ####[facility] Tgotkuiras[address] [place], [place] [address]Dr. Ricardo Rocha E. histolytica Not detected Normal NOT DETECTED The [facility] Comment on above: Performed By: #### G IPANEL ####[facility] Zhpurqqkga[address] [place] [address]Dr. Nanomarcial Rocha EAEC Not detected Normal NOT DETECTED The [facility] Comment on above: Performed By: #### G IPANEL ####[facility] Pbbmfbelge8[address] [place], [place] [address]Dr. Ricardo Rocha EIEC Not detected Normal NOT DETECTED The [facility] Comment on above: Performed By: #### G IPANEL ####[facility] Gakiddqjbc480[address] [place], [place] [address]Dr. [facility] EPEC Not detected Normal NOT DETECTED The [facility] Comment on above: Performed By: #### G IPANEL ####[facility] Clijfoimms725[address] [place], [place] [address]Dr. Ricardo Rocha ETEC Not detected Normal NOT DETECTED The [facility] Comment on above: Performed By: #### G IPANEL ####[facility] Syrjwpbhbp11[address] [place], [place] [address]Dr. Ricardo Rocha G. Lamblia Not detected Normal NOT DETECTED [facility] Comment on above: Performed By: #### G IPANEL ####[facility] Jdooyywshm416[address] [place], [place] [address]Dr. Ricardo Rocha GIPANEL CONTROLS PASSED Normal The [facility] Comment on above: Performed By: #### G IPANEL ####[facility] Uqqcyezbus7827[address] [place], [place] [address]Dr. Ricardo CASAS MONIQUE HEADER GI PANEL BACTERIA Normal [facility] Comment on above: Performed By: #### G IPANEL ####[facility] Cciwfrexne9830[address] [place], [place] [address]Dr. Ricardo MARTINEZHD ECOLI GI PANEL DIARRHEAGEN IC E.COLI / SHIGELLA Normal [facility] Comment on above: Performed By: #### G IPANEL ####[facility] Agzdwhipia618[address] [place], [place] [address]Dr. Ricardo CASASNLHD INFO SEE BELOW Normal [facility] Comment on above: Result Comment: EAEC - Enteroaggregative E. Coli EPEC- Enteropathogenic E. Coli ETEC- Enterotoxigenic E. Coli lt/st STEC- Shigella-like toxin-producing E. Coli stx1/stx2 EIEC- Shigella/Enteroinvasive E. Coli Performed By: #### G IPANEL ####[facility] Zrczzzwoue58[address] [place] [address]Dr. Nanomarcial Rocha GIPNLHD PARASITES GI PANEL PARASITES Normal [facility] Comment on above: Performed By: #### G IPANEL ####[facility] Hjrdtmblpl638[address] [place], [place] [address]Dr. Ricardo Rocha GIPNLHD VIRUS GI PANEL VIRUSES Normal The [facility] Comment on above: Performed By: #### G IPANEL ####[facility] Feijzxkfzp876[address] [place], [place] [address]Dr. Ricardo Rocha Norovirus GI/GII Not detected Normal NOT DETECTED [facility] Comment on above: Performed By: #### G IPANEL ####[facility] Vygzprzpro587880 [address] [place], [place] [address]Dr. Nanomarcial Rocha P. Shigelloides Not detected Normal NOT DETECTED The [facility] Comment on above: Performed By: #### G IPANEL ####[facility] Hsjamhktzb9485[address] [place], [place] [address]Dr. Ricardo Rocha Rotavirus A Not detected Normal NOT DETECTED [facility] Comment on above: Performed By: #### G IPANEL ####[facility] Dwgepujook8589[address] [place], [place] [address]Dr. Nanomarcial Rocha Salmonella Not detected Normal NOT DETECTED The [facility] Comment on above: Performed By: #### G IPANEL ####[facility] Sgigmslbtj032[address] [place], [place] [address]Dr. marcial Rocha Sapovirus Not detected Normal NOT DETECTED [facility] Comment on above: Performed By: #### G IPANEL ####[facility] Mohrtlwvpl790680 [address] [place], [place] [address]Dr. Ricardo Rocha STEC Not detected Normal NOT DETECTED The [facility] Comment on above: Performed By: #### G IPANEL ####[facility] Kgwkrkbsaz7[address] [place] [address]Dr. Ricardo Rocha Vibrio Not detected Normal NOT DETECTED The [facility] Comment on above: Performed By: #### G IPANEL ####[facility] Xhhdlcbisu5636 [place] [address]Dr. Ricardo Rocha Vibrio Cholera Not detected Normal NOT DETECTED The [facility] Comment on above: Performed By: #### G IPANEL ####[facility] Gcyczbbmfx627[address] [place], [place] [address]Dr. Ricardo Rocha Y. Enterocolitica Not detected Normal NOT DETECTED [facility] Comment on above: Performed By: #### G IPANEL ####[facility] Fkvthevdbb565680 [address] [place], [place] [address]Dr. Ricardo Rocha IRON AND TIBCon 06-13-2022 % SATURATION 19.9 % Normal [facility] Comment on above: Performed By: #### F ETIBC, B12FOL ####[facility] Buejgbyfez1908[address] [place], [place] [address]Dr. Ricardo Rocha Iron [Mass/Vol] 75.0 ug/dL Normal 50.0-170.0 [facility] Comment on above: Performed By: #### F ETIBC, B12FOL ####[facility] Prvfhwwkdc948[address] [place], [place] [address]Dr. Ricardo Rocha TIBC DIRECT 376.0 ug/dL Normal 250.0-450.0 The [facility] Comment on above: Performed By: #### F ETIBC, B12FOL ####[facility] Befmodtawh6572[address] [place], [place] [address]Dr. Ricardo Rocha POINT OF CARE GLUCOSEon 05-22 Glucose [Mass/Vol] 238 mg/dL Critically high 74-106 [facility] Comment on above: Performed By: #### P OCGLUC ####[facility] Kfncwzoses7487[address] [place], [place] [address]Dr. Ricardo Rocha Glucose [Mass/Vol] 146 mg/dL Critically high 74-106 [facility] Comment on above: Performed By: #### P OCGLUC ####[facility] Dersszygyn5143 [place] [id number]. Ricardo Rocha Glucose [Mass/Vol] 143 mg/dL Critically high 74-106 [facility] Comment on above: Performed By: #### P OCGLUC ####[facility] Plluhxvaof5348 [place] [id number]. Ricardo Rocha Glucose [Mass/Vol] 205 mg/dL Critically high 74-106 [facility] Comment on above: Performed By: #### P OCGLUC ####[facility] Qsschujdfz1493 [place] [address]Dr. Ricardo Rocha Glucose [Mass/Vol] 227 mg/dL Critically high 74-106 [facility] Comment on above: Performed By: #### P OCGLUC ####[facility] Xfakpibyai1172 [place] [address]Dr. Nanomarcial Rocha PROF 14(COMP METB)on 06-13- 022 Albumin [Mass/Vol] 1.5 g/dL Critically low 3.4-5.0 Th [facility] Comment on above: Performed By: #### C MP ####[facility] Mbgdoeuwpx5218 [place] [address]Dr. Ricardo Rocha Albumin/Globulin [Mass ratio] 0.3 {ratio} Normal [facility] Comment on above: Performed By: #### C MP ####[facility] Czhrvgvxlo0337 [place] [address]Dr. Ricardo Aj ALP [Catalytic activity/Vol] 136 U/L Critically high 46-116 [facility] Comment on above: Performed By: #### C MP ####[facility] Akgiscooep9165 [place] [address]Dr. Ricardo Aj ALT [Catalytic activity/Vol] 18 U/L Normal 14-59 [facility] Comment on above: Performed By: #### C MP ####[facility] Jpjemurlhz1438 [place] [address]Dr. Ricardo Aj Anion gap [Moles/Vol] 10.2 mmol/L Normal [facility] Comment on above: Performed By: #### C MP ####[facility] Deihwohmbg9278 [place] [id number]. Ricardo Rocha AST [Catalytic activity/Vol] 37 U/L Normal 15-37 [facility] Comment on above: Performed By: #### C MP ####[facility] Viuospnzgo0456 [place] [id number]. Ricardo Rocha Bilirubin [Mass/Vol] 0.4 mg/dL Normal 0.2-1.0 [facility] Comment on above: Performed By: #### C MP ####[facility] Sswweykgue6721 [place] [id number]. Ricardo Rocha Calcium [Mass/Vol] 8.0 mg/dL Critically low 8.5-10.1 [facility] Comment on above: Performed By: #### C MP ####[facility] Htgtktbgny264[address] [place], [place] [address]Dr. Ricardo Rocha Chloride [Moles/Vol] 110 mmol/L Critically high 98-107 [facility] Comment on above: Performed By: #### C MP ####[facility] Idmcannwhd86[address] [place], [place] [address]Dr. Ricardo Rocha CO2 [Moles/Vol] 18.2 mmol/L Critically low 21.0-32.0 [facility] Comment on above: Performed By: #### C MP ####[facility] Aelzirwzlf6765 [place] [id number]. Ricardo Rocha Creatinine [Mass/Vol] 1.76 mg/dL Critically high 0.55-1.02 [facility] Comment on above: Performed By: #### C MP ####[facility] Cvhjwcfprc7760 [place] [address]Dr. Ricardo Rocha EGFR-AF BAHAMIAN 35 mL/min/1.73m2 Critically low >=60 [facility] Comment on above: Performed By: #### C MP ####[facility] Ahhghqxxzl[address] [place], [place] [address]Dr. Ricardo Rocha EGFR-NON AF BAHAMIAN 29 mL/min/1.73m2 Critically low >=60 [facility] Comment on above: Performed By: #### C MP ####[facility] Refxoactee4700 [place] [id number]. Ricardo Rocha Globulin (S) [Mass/Vol] 4.7 g/dL Normal [facility] Comment on above: Performed By: #### C MP ####[facility] Qwepjklqfr6197 [place] [address]Dr. Ricardo Rocha Glucose [Mass/Vol] 223 mg/dL Critically high 74-106 [facility] Comment on above: Performed By: #### C MP ####[facility] Gfbczimrlo55[address] [place], [place] [address]Dr. Ricardo Rocha Potassium [Moles/Vol] 3.4 mmol/L Critically low 3.5-5.1 [facility] Comment on above: Performed By: #### C MP ####[facility] Gdjxltklpa8532[address] [place], [place] [address]Dr. Ricardo Rocha Protein [Mass/Vol] 6.2 g/dL Critically low 6.4-8.2 [facility] Comment on above: Performed By: #### C MP ####[facility] Barpfkklur8720[address] [place], [place] [address]Dr. Ricardo Rocha Sodium [Moles/Vol] 135 mmol/L Critically low 136-145 [facility] Comment on above: Performed By: #### C MP ####[facility] Ysutwfxyby483080 [address] [place], [place] [address]Dr. Ricardo Rocha Urea nitrogen [Mass/Vol] 33.0 mg/dL Critically high 7.0-18.0 [facility] Comment on above: Performed By: #### C MP ####[facility] Pbdiumwwdw7313[address] [place], [place] [address]Dr. Ricardo Rocha Urea nitrogen/Creatinine [Mass ratio] 18.8 mg/mg Normal [facility] Comment on above: Performed By: #### C MP ####[facility] Bdwxxfwdyl539[address] [place], [place] [address]Dr. Ricardo Aj VANCOMYCIN TROUGHon 10-24-20 22 VANCOMYCIN TROUGH 15.2 ug/ml Normal 5.0-20.0 [facility] Comment on above: Performed By: #### V ANCT ####[facility] Kjztvjzhex0[address] [place] [address]Dr. Ricardo Rocha VIT B12 AND FOLATEon 022 Cobalamin (Vitamin B12) [Mass/Vol] 874.0 pg/mL Normal 193.0-986.0 [facility] Comment on above: Performed By: #### F ETIBC, B12FOL ####[facility] Spnrgcserk6513 [place] [address]Dr. Ricardo Rocha FOLATE 6.60 ng/mL Critically low 8.60-58.90 The [facility] Comment on above: Performed By: #### F ETIBC, B12FOL ####[facility] Ttmjycrpkh65[address] [place], [place] [address]Dr. Ricardo Rocha XR FOOT LT MIN 3 VIEWSon XR FOOT LT MIN 3 VIEWS Normal [facility] CBC W MANUAL DIFFon 06-12-20 ATYPICAL LYMPH # Normal The [facility] Comment on above: Performed By: #### C DWAINE ####[facility] Yyseaelfxt169580 [address] [place], [place] [address]Dr. Ricardo Rocha ATYPICAL LYMPH % Normal [facility] Comment on above: Performed By: #### C DWAINE ####[facility] Wbrqlegxpu8180[address] [place], [place] [address]Dr. Ricardo Rocha BAND # 1.9 103/ul Critically high 0.0-0.3 [facility] Comment on above: Performed By: #### C BCRED ####[facility] Ykghdqxkat5580 [place] [address]Dr. Ricardo Rocha BAND % 17 % Critically high 0-5 [facility] Comment on above: Performed By: #### C BCRED ####[facility] Sujtmcplbw8298[address] [place], [place] [address]Dr. Nanomarcial Aj BASOM # 0.00 103/ul Normal 0.00-0.10 [facility] Comment on above: Performed By: #### C DWAINE ####[facility] Oschrhpnef9020[address] [place], [place] [address]Dr. Ricardo Rocha BASOM % 0.0 % Critically low 0.2-2.0 The [facility] Comment on above: Performed By: #### C BCMAN ####[facility] Klmuugvxdq4842 [place] [id number]. Ricardo Rocha BLAST # Normal [facility] Comment on above: Performed By: #### C BCMAN ####[facility] Koplvcgkrx7766 [place] [id number]. Ricardo Rocha BLAST % Normal [facility] Comment on above: Performed By: #### C BCRED ####[facility] Fnclmaikjm17[address] [place], [place] [address]Dr. Ricardo Rocha CORRECTED WBC Normal 4.0-11.0 The [facility] Comment on above: Performed By: #### C DWAINE ####[facility] Bhjoccpvru7977[address] [place], [place] [address]Dr. Ricardo Rocha EOS # 0.00 103/ul Normal 0.00-0.70 [facility] Comment on above: Performed By: #### C DWAINE ####[facility] Dhbiogggpg9[address] [place], [place] [address]Dr. Ricardo Rocha EOS% 0.0 % Critically low 0.9-7.0 [facility] Comment on above: Performed By: #### C DWAINE ####[facility] Hinbtyjdrs55[address] [place], [place] [address]Dr. Ricardo Rocha HCT 28.0 % Critically low 36.0-48.0 [facility] Comment on above: Performed By: #### C BCRED ####[facility] Zlmcyuqhyp8717[address] [place], [place] [address]Dr. Ricardo Rocha HGB 8.6 g/dl Critically low 12.0-16.0 [facility] Comment on above: Performed By: #### C BCRED ####[facility] Ujxqhivdky6901 [place] [id number]. Ricardo Rocha HYPOCHROMASIA SLIGHT Normal The [facility] Comment on above: Performed By: #### C BCRED ####[facility] Tiucdetvji7850 [place] [id number]. Ricardo Rocha LYMPHM # 0.77 103/ul Critically low 1.20-3.80 [facility] Comment on above: Performed By: #### C DWAINE ####[facility] Qrlvypmmwr3769 [place] [address]Dr. Ricardo Rocha LYMPHM% 7.0 % Critically low 20.5-60.0 [facility] Comment on above: Performed By: #### C DWAINE ####[facility] Sibhnvmxrn3003 [place] [address]Dr. Ricardo Rocha MCH 25.1 pg Critically low 26.7-34.0 [facility] Comment on above: Performed By: #### C DWAINE ####[facility] Hciqunauph10[address] [place], [place] [address]Dr. Ricardo Rocha MCHC 30.7 g/dl Normal 29.9-35.2 [facility] Comment on above: Performed By: #### C DWAINE ####[facility] Xybhozwadg499[address] [place], [place] [address]Dr. Ricardo Rocha MCV 81.9 fL Normal 81.0-99.0 [facility] Comment on above: Performed By: #### C DWAINE ####[facility] Bwwqfttdhn[address] [place], [place] [address]Dr. Ricardo Rocha METAMYELOCYTE # Normal [facility] Comment on above: Performed By: #### C DWAINE ####[facility] Iiykwrkkfc90[address] [place], [place] [address]Dr. Ricardo Rocha METAMYELOCYTE % Normal [facility] Comment on above: Performed By: #### C DWAINE ####[facility] Nzuejwdxft4763 [place] [id number]. Ricardo Rocha MONOM# 0.11 103/ul Critically low 0.30-0.80 [facility] Comment on above: Performed By: #### C DWAINE ####[facility] Gycwhzrxqd7256 [place] [address]Dr. Ricardo Rocha MONOM% 1.0 % Critically low 1.7-12.0 [facility] Comment on above: Performed By: #### C DWAINE ####[facility] Qyvhfyjmfa1538 [place] [address]Dr. Ricardo Rocha MPV 12.6 fL Normal 9.5-13.5 [facility] Comment on above: Performed By: #### C DWAINE ####[facility] Aixtgcdlaa5465 [place] [address]Dr. Ricardo Rocha MYELOCYTE # Normal [facility] Comment on above: Performed By: #### C DWAINE ####[facility] Ikiifaknpn0024 [place] [address]Dr. Ricardo Rocha MYELOCYTE % Normal [facility] Comment on above: Performed By: #### C DWAINE ####[facility] Ukipgsivzq7462 [place] [address]Dr. Ricardo Rocha NRBC Normal [facility] Comment on above: Performed By: #### C DWAINE ####[facility] Jtuedjctbp2825 [place] [address]Dr. Ricardo Rocha PLT 140 103/ul Critically low 150-450 [facility] Comment on above: Performed By: #### C DWAINE ####[facility] Crnfplpyyr7140 [place] [id number]. Ricardo Rocha RBC 3.42 106/ul Critically low 4.20-5.40 [facility] Comment on above: Performed By: #### C DWAINE ####[facility] Ztqnnpbovy0081 [place] [address]Dr. Ricardo Rocha RDW 13.7 % Normal 11.0-15.0 [facility] Comment on above: Performed By: #### C DWAINE ####[facility] Vjufyymzad1088 [place] [address]Dr. Ricardo Rocha SEG # 8.25 103/ul Critically high 1.40-6.50 The [facility] Comment on above: Performed By: #### C DWAINE ####[facility] Lffeigttjg0772 [place] [address]Dr. Ricardo Rocha SEG % 75.0 % Normal 43.0-75.0 [facility] Comment on above: Performed By: #### C BCMAN ####[facility] Jjgkjocvtr9444 [place] [address]Dr. Ricardo Rocha WBC 11.0 103/ul Normal 4.0-11.0 [facility] Comment on above: Performed By: #### C BCMAN ####[facility] Ihdvbinwsj1945 [place] [address]Dr. Ricardo Rocha POINT OF CARE GLUCOSEon 05-22 Glucose [Mass/Vol] 200 mg/dL Critically high 74-106 [facility] Comment on above: Performed By: #### P OCGLUC ####[facility] Awoijjuyfy4[address] [place], [place] [address]Dr. Ricardo Rocha Glucose [Mass/Vol] 165 mg/dL Critically high 74-106 [facility] Comment on above: Performed By: #### P OCGLUC ####[facility] Akwpllyzog7670[address] [place], [place] [address]Dr. Ricardo Rocha Glucose [Mass/Vol] 152 mg/dL Critically high 74-106 [facility] Comment on above: Performed By: #### P OCGLUC ####[facility] Dmztxomgkg8499[address] [place], [place] [address]Dr. Ricardo Rocha Glucose [Mass/Vol] 154 mg/dL Critically high 74-106 [facility] Comment on above: Performed By: #### P OCGLUC ####[facility] Icxhgxozzq0456 [place] [address]Dr. Ricardo Rocha PROF 14(COMP METB)on 022 Albumin [Mass/Vol] 1.9 g/dL Critically low 3.4-5.0 [facility] Comment on above: Performed By: #### C MP ####[facility] Nwxtagbzjx9516 [place] [address]Dr. Ricardo Rocha Albumin/Globulin [Mass ratio] 0.4 {ratio} Normal [facility] Comment on above: Performed By: #### C MP ####[facility] Wifgzejyzf8790 [place] [address]Dr. Ricardo Rocha ALP [Catalytic activity/Vol] 68 U/L Normal 46-116 [facility] Comment on above: Performed By: #### C MP ####[facility] Htattckmyu3205 [place] [address]Dr. Ricardo Rocha ALT [Catalytic activity/Vol] 16 U/L Normal 14-59 [facility] Comment on above: Performed By: #### C MP ####[facility] Xuhaeqccbs769[address] [place], [place] [address]Dr. Ricardo Rocha Anion gap [Moles/Vol] 15.1 mmol/L Normal [facility] Comment on above: Performed By: #### C MP ####[facility] Xmutnvjyaw9668[address] [place], [place] [address]Dr. Ricardo Aj AST [Catalytic activity/Vol] 26 U/L Normal 15-37 [facility] Comment on above: Performed By: #### C MP ####[facility] Evyfvkydhn339[address] [place], [place] [address]Dr. Ricardo Aj Bilirubin [Mass/Vol] 0.3 mg/dL Normal 0.2-1.0 [facility] Comment on above: Performed By: #### C MP ####[facility] Wmegloydob5495[address] [place], [place] [address]Dr. Ricardo Aj Calcium [Mass/Vol] 8.0 mg/dL Critically low 8.5-10.1 [facility] Comment on above: Performed By: #### C MP ####[facility] Zlzbmyixzf8107[address] [place], [place] [address]Dr. Ricardo Aj Chloride [Moles/Vol] 110 mmol/L Critically high 98-107 [facility] Comment on above: Performed By: #### C MP ####[facility] Zkxafcvhgd7205[address] [place], [place] [address]Dr. Ricardo Aj CO2 [Moles/Vol] 18.0 mmol/L Critically low 21.0-32.0 [facility] Comment on above: Performed By: #### C MP ####[facility] Qgqgbkerna4925[address] [place], [place] [address]Dr. Ricardo Aj Creatinine [Mass/Vol] 1.97 mg/dL Critically high 0.55-1.02 [facility] Comment on above: Performed By: #### C MP ####[facility] Kaocalhxqj0389 [place] [address]Dr. Ricardo Rocha EGFR-AF BAHAMIAN 31 mL/min/1.73m2 Critically low >=60 [facility] Comment on above: Performed By: #### C MP ####[facility] Nqlmahcuku7223 [place] [address]Dr. Ricardo Rocha EGFR-NON AF BAHAMIAN 26 mL/min/1.73m2 Critically low >=60 [facility] Comment on above: Performed By: #### C MP ####[facility] Nzvmdacwvb1212[address] [place], [place] [address]Dr. Ricardo Rocha Globulin (S) [Mass/Vol] 5.2 g/dL Normal [facility] Comment on above: Performed By: #### C MP ####[facility] Pmqaqadpii3887[address] [place], [place] [address]Dr. Ricardo Rocha Glucose [Mass/Vol] 146 mg/dL Critically high 74-106 [facility] Comment on above: Performed By: #### C MP ####[facility] Lpwrnpvazv230[address] [place], [place] [address]Dr. Ricardo Rocha Potassium [Moles/Vol] 3.1 mmol/L Critically low 3.5-5.1 [facility] Comment on above: Performed By: #### C MP ####[facility] Ournoeymif6529[address] [place], [place] [address]Dr. Ricardo Rocha Protein [Mass/Vol] 7.1 g/dL Normal 6.4-8.2 [facility] Comment on above: Performed By: #### C MP ####[facility] Fdosmczxpg2794[address] [place], [place] [address]Dr. Ricardo Rocha Sodium [Moles/Vol] 140 mmol/L Normal 136-145 [facility] Comment on above: Performed By: #### C MP ####[facility] Jgvnfovylf904[address] [place], [place] [address]Dr. Ricardo Rocha Urea nitrogen [Mass/Vol] 30.0 mg/dL Critically high 7.0-18.0 [facility] Comment on above: Performed By: #### C MP ####[facility] Jnexjneyfq7799 [place] [address]Dr. Ricardo Rocha Urea nitrogen/Creatinine [Mass ratio] 15.2 mg/mg Normal [facility] Comment on above: Performed By: #### C MP ####[facility] Kgwllsisob6684 [place] [address]Dr. Ricardo Rocha CBC W MANUAL DIFFon 06-11-20 22 ATYPICAL LYMPH # Normal [facility] [facility] Comment on above: Performed By: #### C BCMAN ####[facility] Pyrwjhqzad[address] [place], [place] [address]Dr. Ricardo Rocha ATYPICAL LYMPH % Normal [facility] Comment on above: Performed By: #### C BCMAN ####[facility] Cbfypvrsty7[address] [place], [place] [address]Dr. Ricardo Rocha BAND # 1.1 103/ul Critically high 0.0-0.3 [facility] Comment on above: Performed By: #### C BCMAN ####[facility] Mgxnnbpdpo24[address] [place], [place] [address]Dr. Ricardo Rocha BAND % 12 % Critically high 0-5 [facility] Comment on above: Performed By: #### C BCMAN ####[facility] Zchssgsvoq9046[address] [place], [place] [address]Dr. Ricardo Rocha BASOM # 0.00 103/ul Normal 0.00-0.10 [facility] Comment on above: Performed By: #### C BCMAN ####[facility] Vnpjvpvyqa02[address] [place] [address]Dr. Ricardo Rocha BASOM % 0.0 % Critically low 0.2-2.0 The [facility] Comment on above: Performed By: #### C BCMAN ####[facility] Rnultrfwhy4857 [place] [address]Dr. Ricardo Rocha BLAST # Normal [facility] Comment on above: Performed By: #### C BCMAN ####[facility] Rxclgtgnho7381 [place] [id number]. Ricardo Rocha BLAST % Normal [facility] Comment on above: Performed By: #### C DWAINE ####[facility] Patyvwbyyp3065 [place] [id number]. Ricardo Rocha CORRECTED WBC Normal 4.0-11.0 [facility] Comment on above: Performed By: #### C DWAINE ####[facility] Ewkonpdptt3768 [place] [id number]. Ricardo Rocha EOS # 0.00 103/ul Normal 0.00-0.70 [facility] Comment on above: Performed By: #### C DWAINE ####[facility] Tdomqudjdy9869 [place] [id number]. Ricardo Rocha EOS% 0.0 % Critically low 0.9-7.0 [facility] Comment on above: Performed By: #### C DWAINE ####[facility] Ghsncdaooy1295 [place] [id number]. Ricardo Rocha HCT 32.6 % Critically low 36.0-48.0 [facility] Comment on above: Performed By: #### C DWAINE ####[facility] Sqsghwsxts[address] [place], [place] [id number]. Ricardo Rocha HGB 10.5 g/dl Critically low 12.0-16.0 [facility] Comment on above: Performed By: #### C DWAINE ####[facility] Fudlnidrtu2595 [place] [id number]. Ricardo Rocha LYMPHM # 0.46 103/ul Critically low 1.20-3.80 [facility] Comment on above: Performed By: #### C DWAINE ####[facility] Ejgdgbgrlm3159 [place] [id number]. Ricardo Rocha LYMPHM% 5.0 % Critically low 20.5-60.0 [facility] Comment on above: Performed By: #### C DWAINE ####[facility] Jaopqvgsvt4301 [place] [id number]. Ricardo Rocha MCH 25.3 pg Critically low 26.7-34.0 [facility] Comment on above: Performed By: #### C DWAINE ####[facility] Hwtmjsekhf2104 [place] [address]Dr. Ricardo Rocha MCHC 32.2 g/dl Normal 29.9-35.2 [facility] Comment on above: Performed By: #### C DWAINE ####[facility] Tfxmzvfddx5948 [place] [id number]. Ricardo Rocha MCV 78.6 fL Critically low 81.0-99.0 [facility] Comment on above: Performed By: #### C DWAINE ####[facility] Xfdsrjtcfb6462 [place] [address]Dr. Ricardo Rocha METAMYELOCYTE # Normal [facility] Comment on above: Performed By: #### C DWAINE ####[facility] Rogrwgeyed8[address] [place], [place] [address]Dr. Ricardo Rocha METAMYELOCYTE % Normal [facility] Comment on above: Performed By: #### C DWAINE ####[facility] Cmyevlkqvd3555 [place] [id number]. Ricardo Rocha MONOM# 0.28 103/ul Critically low 0.30-0.80 [facility] Comment on above: Performed By: #### C DWAINE ####[facility] Yteagmfyxc9572 [place] [address]Dr. Ricardo Rocha MONOM% 3.0 % Normal 1.7-12.0 [facility] Comment on above: Performed By: #### C DWAINE ####[facility] Zlhavwyiap3891 [place] [id number]. Ricardo Rocha MPV 11.4 fL Normal 9.5-13.5 [facility] Comment on above: Performed By: #### C DWAINE ####[facility] Spcoujqdkk9354 [place] [address]Dr. Ricardo Rocha MYELOCYTE # Normal [facility] Comment on above: Performed By: #### C DWAINE ####[facility] Vihrwfpmpp2378[address] [place], [place] [address]Dr. Ricardo Rocha MYELOCYTE % Normal [facility] Comment on above: Performed By: #### C DWAINE ####[facility] Nivgvqkwbj1647 [place], [place] [address]Ww. Ricardo Rocha NRBC Normal [facility] Comment on above: Performed By: #### C DWAINE ####[facility] Kiifdjwdip2195 [place], [place] [address]Uv. Ricardo Rocha PLT 154 103/ul Normal 150-450 [facility] Comment on above: Performed By: #### C DWAINE ####[facility] Icrjjnixop9221 [place], [place] [address]Ls. Ricardo Rocha RBC 4.15 106/ul Critically low 4.20-5.40 [facility] Comment on above: Performed By: #### C DWAINE ####[facility] Zpbefsveyc2804 [place] [id number]. Ricardo Rocha RDW 12.8 % Normal 11.0-15.0 [facility] Comment on above: Performed By: #### C DWAINE ####[facility] Uqwrznzrtz9748 [place] [phone]. Ricardo Rocha SEG # 7.36 103/ul Critically high 1.40-6.50 [facility] Comment on above: Performed By: #### C DWAINE ####[facility] Ecxveumzsr0050 [place] [phone]. Ricardo Rocha SEG % 80.0 % Critically high 43.0-75.0 [facility] Comment on above: Performed By: #### C DWAINE ####[facility] Qmhwftiarq4426 [place] [id number]. Ricardo Rocha WBC 9.2 103/ul Normal 4.0-11.0 [facility] Comment on above: Performed By: #### C DWAINE ####[facility] Odikuumvwj1633 [place] [phone]. Ricardo Rocha CT HEAD WO CONon 06-11-2022 CT HEAD WO CON Normal [facility] CULTURE ANAEROBICon 10-22-20 22 CULTURE ANAEROBIC Culture Observations : NO GROWTH OF ANAEROBES AT 72 HOURS. Normal [facility] Comment on above: Performed By: #### A NACX ####[facility] Jitqopbmze8213[address] [place], [place] [address]Dr. Ricardo Rocha CULTURE ANAEROBIC Culture Observations : NO GROWTH OF ANAEROBES AT 72 HOURS. Normal [facility] Comment on above: Performed By: #### A NACX ####[facility] Bmqfakwbcw7147[address] [place], [place] [address]Dr. Ricardo Rocha CULTURE BLOODon 06-11-2022 Microscopic examination of blood, culture Culture Observations: Aerobic bottle positive only. Culture Observations: No growth at 5 days in anaerobic bottle Culture Observations: See for Susceptibility testing. Isolate 1 Staphylococcus aureus Growth of Normal [facility] Comment on above: Performed By: #### B LDCX2 ####[facility] Kjteriwtfc6229[address] [place], [place] [address]Dr. Ricardo Rocha CULTURE URINEon 06-11-2022 CULTURE URINE Culture Observations : LIGHT GROWTH OF MIXED GENITAL SHAHLA. NO POTENTIAL PATHOGENS SEEN. Normal [facility] Comment on above: Performed By: #### U RCX ####[facility] Sdztcnzilx9404[address] [place], [place] [address]Dr. Ricardo Rocha Covid-19 PCR (CVDTB)on 05-22 SARS-CoV-2 (COVID-19) RNA ADRIEL+probe Ql (Unsp spec) Not detected Normal NOT DETECTED [facility] Comment on above: Result Comment: When [...] for this test is supported by the [place] of Health and Human Service's declaration that [...] be used). Performed By: #### C NEGRITO ####[facility] Eplvxkklmh3668[address] [place], [place] [address]Dr. Ricardo Rocha ER URINE PROFILEon 2 Bilirubin Ql (U) Negative Normal NEGATIVE [facility] Comment on above: Performed By: #### SHAYNA ELENA ####[facility] Nafziqdudw495[address] [place], [place] [address]Dr. Ricardo Rocha Clarity (U) CLEAR Normal CLEAR [facility] Comment on above: Performed By: #### SHAYNA ELENA ####[facility] Gvcmusublq3437[address] [place], [place] [address]Dr. Ricardo Rocha Color (U) LT. YELLOW Normal YELLOW [facility] Comment on above: Performed By: #### SHAYNA ELENA ####[facility] Wtphplcelg4174[address] [place], [place] [address]Dr. Ricardo CHAMPAGNEAHD A micrscopic examination will be performed if indicated. Normal [facility] Comment on above: Performed By: #### SHAYNA ELENA ####[facility] Djaoemmoez0473[address] [place], [place] [address]Dr. Ricardo Rocha Glucose Ql (U) >1000 Abnormal NEGATIVE [facility] Comment on above: Performed By: #### SHAYNA ELENA ####[facility] Qkijsruosr6565[address] [place], [place] [address]Dr. Ricardo Rocha Hemoglobin Ql (U) LARGE Abnormal NEGATIVE [facility] Comment on above: Performed By: #### SHAYNA ELENA ####[facility] Owkguhevid3877[address] [place], [place] [address]Dr. Ricardo Rocha Ketones Ql (U) 15 mg/dl Abnormal NEGATIVE [facility] Comment on above: Performed By: #### SHAYNA ELENA ####[facility] Coknjuzhta0947[address] [place], [place] [address]Dr. Ricardo Rocha LEUKOCYTES Negative Normal NEGATIVE [facility] Comment on above: Performed By: #### LOLY ELENAICRO ####[facility] Nbtjfvzmzz8943 [place] [address]Dr. Ricardo Rocha Nitrite Ql (U) Negative Normal NEGATIVE [facility] Comment on above: Performed By: #### Jennifer HINOJOSA UMICRO ####[facility] Ddjvzcduky9813 [place] [address]Dr. Ricardo Rocha pH (U) 6.0 [pH] Normal 5-9 [facility] Comment on above: Performed By: #### LOLY ELENAICRO ####[facility] Bkhqrocecb0957[address] [place], [place] [address]Dr. Ricardo Rocha Protein (U) [Mass/Vol] 100 mg/dL Abnormal NEGATIVE/ TRACE [facility] Comment on above: Performed By: #### LOLY ELENAICRO ####[facility] Qutcdendwl5368[address] [place], [place] [address]Dr. Ricardo Rocha SPEC GRAVITY 1.020 Normal 1.005-<=1.02 5 [facility] Comment on above: Performed By: #### LOLY ELENAICRO ####[facility] Wfptdlipjz860[address] [place], [place] [address]Dr. Ricardo Rocha UR MICRO IND INDICATED Normal [facility] Comment on above: Performed By: #### LOLY ELENAICRO ####[facility] Mabnvxzbfl0042[address] [place], [place] [address]Dr. Ricardo Rocha Urobilinogen Qn (U) 0.2 {Madeleine'U}/dL Normal 0.2 - 1. 0 [facility] Comment on above: Performed By: #### Jennifer HINOJOSA UMICRO ####[facility] Jodlwngwus5448[address] [place], [place] [address]Dr. Ricardo Rocha GRAM STAINon 06-11-2022 DIPHTHEROIDS Normal [facility] Comment on above: Performed By: #### G STAIN ####[facility] Skvmkadgco1516[address] [place], [place] [address]Dr. Ricardo Rocha EPITHELIALS Normal [facility] Comment on above: Performed By: #### G STAIN ####[facility] Veswembvhx7177 [place] [address]Dr. Ricardo Rocha FUNGAL ELEMENTS Normal [facility] Comment on above: Performed By: #### G STAIN ####[facility] Fodlhjkxrq0482 [place] [address]Dr. Ricardo Rocha GRAM NEG BACILLI Normal [facility] Comment on above: Performed By: #### G STAIN ####[facility] Mvkokvoaao2000 [place] [address]Dr. Ricardo Rocha GRAM NEG DIPPLOCOCCI Normal [facility] Comment on above: Performed By: #### G STAIN ####[facility] Yghphxagef1435[address] [place], [place] [address]Dr. Ricardo Rocha GRAM POS BACILLI Normal [facility] Comment on above: Performed By: #### G STAIN ####[facility] Gvgxgvpvgx3573[address] [place], [place] [address]Dr. Ricardo Rocha GRAM POSITIVE COCCI MANY Normal [facility] Comment on above: Performed By: #### G STAIN ####[facility] Rmjtdpvbte6716[address] [place], [place] [address]Dr. Ricardo Rocha GRAM STAIN SOURCE Left great toe tissu e after washout-clean Normal [facility] Comment on above: Performed By: #### G STAIN ####[facility] Ynoxkmzxei9607[address] [place], [place] [address]Dr. Ricardo Rocha GS_DIPTH Normal [facility] Comment on above: Performed By: #### G STAIN ####[facility] Zoyfsvkfgb8431 [place] [address]Dr. Ricardo Rocha WBC RARE Normal [facility] Comment on above: Performed By: #### G STAIN ####[facility] Rdjoyrlowl5564[address] [place], [place] [address]Dr. Ricardo Rocha DIPHTHEROIDS Normal [facility] Comment on above: Performed By: #### G STAIN ####[facility] Egrwfvymmk3229 [place] [address]Dr. Ricardo Rocha EPITHELIALS Normal [facility] Comment on above: Performed By: #### G STAIN ####[facility] Tvxxzmqchj1484 [place] [id number]. Ricardo Rocha FUNGAL ELEMENTS Normal [facility] Comment on above: Performed By: #### G STAIN ####[facility] Avmvtindhw9025 [place] [phone]. Ricardo Rocha GRAM NEG BACILLI Normal [facility] Comment on above: Performed By: #### G STAIN ####[facility] Zpzemkxtyy2979 [place] [phone]. Ricardo Rocha GRAM NEG DIPPLOCOCCI Normal [facility] Comment on above: Performed By: #### G STAIN ####[facility] Xlkfjdbwov6887 [place] [address]Dr. Ricardo Rocha GRAM POS BACILLI Normal [facility] Comment on above: Performed By: #### G STAIN ####[facility] Jyxtdfdgbz6326 [place] [address]Dr. Ricardo Rocha GRAM POSITIVE COCCI RARE Normal [facility] Comment on above: Performed By: #### G STAIN ####[facility] Efianunmtv2688 [place] [address]Dr. Ricardo Rocha GRAM STAIN SOURCE Left great toe Normal [facility] Comment on above: Performed By: #### G STAIN ####[facility] Atbuwmvkgs9461 [place] [address]Dr. Ricardo Rocha GS_DIPTH Normal [facility] Comment on above: Performed By: #### G STAIN ####[facility] Thqwakxtjb9967 [place] [address]Dr. Ricardo Rocha WBC RARE Normal [facility] Comment on above: Performed By: #### G STAIN ####[facility] Iqgceaigws3093 [place] [address]Dr. Ricardo Rocha DIPHTHEROIDS Normal [facility] Comment on above: Performed By: #### G STAIN ####[facility] Unfbpkinvi1960 [place] [address]Dr. Ricardo Rocha EPITHELIALS Normal [facility] Comment on above: Performed By: #### G STAIN ####[facility] Uwijggepjc1851 [place] [address]Dr. Ricardo Rocha FUNGAL ELEMENTS Normal [facility] Comment on above: Performed By: #### G STAIN ####[facility] Llqtimwbfk6167[address] [place], [place] [address]Dr. Ricardo Rocha GRAM NEG BACILLI Normal [facility] Comment on above: Performed By: #### G STAIN ####[facility] Qdhvrunrhb8288[address] [place], [place] [address]Dr. Ricardo Rocha GRAM NEG DIPPLOCOCCI Normal [facility] Comment on above: Performed By: #### G STAIN ####[facility] Gnzjtdbckz224[address] [place], [place] [address]Dr. Ricardo Rocha GRAM POS BACILLI Normal [facility] Comment on above: Performed By: #### G STAIN ####[facility] Ftmtsaekje2716[address] [place], [place] [address]Dr. Ricardo Rocha GRAM POSITIVE COCCI FEW Normal [facility] Comment on above: Performed By: #### G STAIN ####[facility] Bdtpwtdary1695[address] [place], [place] [address]Dr. Ricardo Rocha GRAM STAIN SOURCE Left great toe abscess Normal [facility] Comment on above: Performed By: #### G STAIN ####[facility] Vwaepuxcqf8187[address] [place], [place] [address]Dr. Ricardo Rocha GS_DIPTH Normal [facility] Comment on above: Performed By: #### G STAIN ####[facility] Svnvxktxfn5645[address] [place], [place] [address]Dr. Ricardo Rocha WBC FEW Normal [facility] Comment on above: Performed By: #### G STAIN ####[facility] Rhvmsfapkj834[address] [place], [place] [address]Dr. Ricardo Rocha LACTATE/LACTIC ACIDon 2021 Lactate [Moles/Vol] 2.2 mmol/L Critically high 0.4-1.9 [facility] Comment on above: Performed By: #### L ACT ####[facility] Jdjiadfrsa5647[address] [place], [place] [address]Dr. Ricardo Rocha POINT OF CARE GLUCOSEon 10-2 2-2022 Glucose [Mass/Vol] 133 mg/dL Critically high -106 [facility] Comment on above: Performed By: #### P OCGLUC ####[facility] Fhtrwoserw3570 [place] [address]Dr. Ricardo Rocha Glucose [Mass/Vol] 215 mg/dL Critically high -106 [facility] Comment on above: Performed By: #### P OCGLUC ####[facility] Lautinuvvn2440 [place] [address]Dr. Ricardo Rocha Glucose [Mass/Vol] 207 mg/dL Critically high -106 [facility] Comment on above: Performed By: #### P OCGLUC ####[facility] Dpccojecba4059 [place] [address]Dr. Ricardo Rocha Glucose [Mass/Vol] 314 mg/dL Critically high -106 [facility] Comment on above: Performed By: #### P OCGLUC ####[facility] Lyqlaufdvv7070[address] [place], [place] [address]Dr. Ricardo Rocha Glucose [Mass/Vol] 496 mg/dL Critically high [address] [place] [address] Comment on above: Performed By: #### P OCGLUC ####[facility] Tblsrihsrm4646[address] [place], [place] [address]Dr. Ricardo Rocha Glucose [Mass/Vol] 561 mg/dL Critically high -106 [facility] Comment on above: Result Comment: Prev iously Confirmed Performed By: #### P OCGLUC ####[facility] Sfyvajwalj480[address] [place], [place] [address]Dr. Ricardo Aj PROF 14(COMP METB)on 022 Albumin [Mass/Vol] 2.4 g/dL Critically low 3.4-5.0 [facility] Comment on above: Performed By: #### C MP ####[facility] Uvckcqmklm3415 [place] [address]Dr. Nanomarcial Aj Albumin/Globulin [Mass ratio] 0.4 {ratio} [facility] Comment on above: Performed By: #### C MP ####[facility] Vcgxvvmbcm7865 [place] [address]Dr. Ricardo Rocha ALP [Catalytic activity/Vol] 82 U/L Normal 46-116 [facility] Comment on above: Performed By: #### C MP ####[facility] Bypynixsco8141 [place] [address]Dr. Ricardo Rocha ALT [Catalytic activity/Vol] 12 U/L Critically low 14-59 [facility] Comment on above: Performed By: #### C MP ####[facility] Lqrqhgnapm040[address] [place], [place] [address]Dr. Ricardo Rocha Anion gap [Moles/Vol] 15.1 mmol/L Normal [facility] Comment on above: Performed By: #### C MP ####[facility] Gafxknalie079[address] [place], [place] [address]Dr. Ricardo Rocha AST [Catalytic activity/Vol] 14 U/L Critically low 15-37 [facility] Comment on above: Performed By: #### C MP ####[facility] Pukqwhmqjw1529[address] [place], [place] [address]Dr. Ricardo Aj Bilirubin [Mass/Vol] 0.4 mg/dL Normal 0.2-1.0 [facility] Comment on above: Performed By: #### C MP ####[facility] Snfcnpgwmr9446[address] [place], [place] [address]Dr. Ricardo Aj Calcium [Mass/Vol] 8.8 mg/dL Normal 8.5-10.1 [facility] Comment on above: Performed By: #### C MP ####[facility] Jpumzjhhot8867[address] [place], [place] [address]Dr. Ricardo Aj Chloride [Moles/Vol] 105 mmol/L Normal 98-107 [facility] Comment on above: Performed By: #### C MP ####[facility] Nohtyodpgv0962[address] [place], [place] [address]Dr. Nanomarcial Aj CO2 [Moles/Vol] 21.2 mmol/L Normal 21.0-32.0 [facility] Comment on above: Performed By: #### C MP ####[facility] Fticaanajf4325[address] [place], [place] [address]DrIrina Rocha Creatinine [Mass/Vol] 2.03 mg/dL Critically high 0.55-1.02 [facility] Comment on above: Performed By: #### C MP ####[facility] Qnkqkwkpag0359 [place] [address]Dr. Nanomarcial Aj EGFR-AF BAHAMIAN 30 mL/min/1.73m2 Critically low >=60 [facility] Comment on above: Performed By: #### C MP ####[facility] Ckxfltbyxs5800 [place] [address]Dr. Ricardo Rocha EGFR-NON AF BAHAMIAN 25 mL/min/1.73m2 Critically low >=60 [facility] Comment on above: Performed By: #### C MP ####[facility] Bwmkvxaafj5632[address] [place], [place] [address]Dr. Ricardo Rocha Globulin (S) [Mass/Vol] 5.7 g/dL Normal [facility] Comment on above: Performed By: #### C MP ####[facility] Pqdsctdzvs8539 [place] [address]Dr. Ricardo Rocha Glucose [Mass/Vol] 309 mg/dL Critically high 74-106 [facility] Comment on above: Performed By: #### C MP ####[facility] Eldsftpobd3608 [place] [address]DrIrina Rocha Potassium [Moles/Vol] 3.3 mmol/L Critically low 3.5-5.1 [facility] Comment on above: Performed By: #### C MP ####[facility] Iehsvbrdcj5717 [place] [address]Dr. Ricardo Rocha Protein [Mass/Vol] 8.1 g/dL Normal 6.4-8.2 [facility] Comment on above: Performed By: #### C MP ####[facility] Nahlgnonpw4064[address] [place], [place] [address]Dr. Ricardo Rocha Sodium [Moles/Vol] 138 mmol/L Normal 136-145 [facility] Comment on above: Performed By: #### C MP ####[facility] Vpltkpsqpm1098[address] [place], [place] [address]Dr. Ricardo Rocha Urea nitrogen [Mass/Vol] 37.0 mg/dL Critically high 7.0-18.0 [facility] Comment on above: Performed By: #### C MP ####[facility] Jppzbnjygx4435 [place] [address]Dr. Ricardo Rocha Urea nitrogen/Creatinine [Mass ratio] 18.2 mg/mg Normal [facility] Comment on above: Performed By: #### C MP ####[facility] Vboqfnvtcu9785 [place] [address]Dr. Ricardo Rocha SED RATE WESTERGRENon 2021 SED RATE >130 Critically high <=30 [facility] Comment on above: Performed By: #### S EDR ####[facility] Zycsboeukw[address] [place], [place] [address]Dr. Ricardo Rocha URINE MICROSCOPIC ONLYon AMORPHOUS CRYSTALS MODERATE Normal [facility] [place] [facility] Comment on above: Performed By: #### Jennifer HINOJOSA UMICRO ####[facility] Oqjrtyoflq5997 [place] [address]Dr. Nanomarcial Aj BACTERIA MODERATE Abnormal NONE SEEN [facility] Comment on above: Performed By: #### LOLY ELENAICRO ####[facility] Jqjxwvkyci00[address] [place], [place] [address]Dr. Nanomarcial Aj Bacteria identified Cx Nom (U) INDICATED Normal [facility] Comment on above: Performed By: #### Jennifer HINOJOSA UMICRO ####[facility] Yapqcffvbe3454 [place] [address]Dr. Ricardo Rocha CAST NONE SEEN Normal NONE SEEN [facility] Comment on above: Performed By: #### Jennifer HINOJOSA UMICRO ####[facility] Dlnkxgpzmb3857 [place] [address]Dr. Ricardo Rocha Crystals LM Nom (Urine sed) SEEN Abnormal NONE SEEN [facility] Comment on above: Performed By: #### Jennifer HINOJOSA UMICRO ####[facility] Xthkviiwfs9511 [place] [address]Dr. Ricardo Rocha Epithelial cells LM Ql (Urine sed) NONE SEEN Normal NONE SEEN /RARE [facility] Comment on above: Performed By: #### Jennifer HINOJOSA UMICRO ####[facility] Wfiztbxeqc4838 [place] [address]Dr. Ricardo Rocha MUCOUS NONE SEEN Normal NONE SEEN [facility] Comment on above: Performed By: #### JOSLYN ELENARO ####[facility] Yjujzcqnpb9878 [place] [id number]. Ricardo Rocha RBC 2-5 Abnormal 0-2 [facility] Comment on above: Performed By: #### E JOSLYN HINOJOSARO ####[facility] Ewydsbzmuy1384 [place] [id number]. Ricardo Rocha WBC 5-10 Abnormal NONE SEEN [facility] Comment on above: Performed By: #### JOSLYN ELENARO ####[facility] Rjqoyunfge1134 [place] [address]Dr. Ricardo Rocha XR CHEST 1 Von 06-11-2022 XR CHEST 1 V Normal [facility] XR FOOT LT MIN 3 VIEWSon XR FOOT LT MIN 3 VIEWS Normal [facility] XR FOOT LT MIN 3 VIEWS Normal [facility] ACETONE SERUMon 06-10-2022 ACETONE Negative Normal NEGATIVE [facility] Comment on above: Performed By: #### A CETON ####[facility] Msvdahzkhm[address] [place], [place] [address]Dr. Ricardo Rocha AMMONIAon 06-10-2022 Ammonia (P) [Mass/Vol] ug/dL Critically low 11-32 [facility] Comment on above: Performed By: #### A MM ####[facility] [address]prdjq[address] [place] [address]Dr. Ricardo Rocha BLOOD CULTURE ID PANELon A. baumannii Not detected Normal NOT DETECTED The [facility] Comment on above: Performed By: #### B CID2 ####[facility] Bpshvlkcwp[address] [place] [address]Dr. Ricardo Rocha Bacteriodes fragilis Not detected Normal NOT DETECTED [facility] Comment on above: Performed By: #### B CID2 ####[facility] Jqqcswjsfk75[address] [place] [id number]. Yimarcial Rocha BCID CONTROLS PASSED Normal The [facility] Comment on above: Performed By: #### B CID2 ####[facility] Cwwptdlaok06[address] [place] [id number]. Yimarcial Rocha BCIDBTHD BLOOD CULTURE BOTTLE INFORMATION [facility] Comment on above: Performed By: #### B CID2 ####[facility] Ikonaemurj6313 [place] [id number]. Yimarcial Rocha BCIDHD1 ANTIMICROBIAL RESISTANCE GENES [facility] Comment on above: Performed By: #### B CID2 ####[facility] Ryitlpxfsg86[address] [place] [address]Dr. Yimarcial Rocha BCIDHD2 SEE [address] [facility] Comment on above: Result Comment: Note : Antimicrobial resitance can occur via multiple mechanisms. A Not Detected result for the [employer]ulu[employer] antomicrobial resistance gene assays does not indicate antimicrobial susceptibility. Subculturing is required for species identification and susceptibility testing of isolates. Performed By: #### B CID2 ####[facility] Oagrpsgjoe7[address] [place] [id number]. Yimarcial Rocha BCIDHD[address] [facility] Comment on above: Performed By: #### B CID2 ####[facility] Hgfzwkbyld4881 [place] [address]Dr. Yimarcial Rocha BCIDHD[address] [facility] Comment on above: Performed By: #### B CID2 ####[facility] Zodwzqwpge0481 [place] [id number]. Yimarcial Rocha BCIDHD5 YEAST Normal [facility] Comment on above: Performed By: #### B CID2 ####[facility] Kdjpvyoryf40[address] [place] [address]Dr. Yilan Rocha Bottle Set: Set [address] [facility] Comment on above: Performed By: #### B CID2 ####[facility] Grikhvocsv6[address] [place] [address]Dr. Yilan Rocha Bottle: Aerobic Normal [facility] Comment on above: Performed By: #### B CID2 ####[facility] Ehftyhzawa1901 [place] [id number]. Yilan Rocha C. neoformans/gattii Not detected Normal NOT DETECTED [facility] Comment on above: Performed By: #### B CID2 ####[facility] Dfyjpqxity8147 [place] [address]Dr. Yilan Rocha Lauren albicans Not detected Normal NOT DETECTED [facility] Comment on above: Performed By: #### B CID2 ####[facility] Gmdcfpxkwa55[address] [place] [address]Dr. Yilan Rocha Lauren auris Not detected Normal NOT DETECTED The [facility] Comment on above: Performed By: #### B CID2 ####[facility] Zobsjqkidb[address] [place], [place] [address]Dr. Yilan Rocha Lauren glabrata Not detected Normal NOT DETECTED [facility] Comment on above: Performed By: #### B CID2 ####[facility] Fuluogzvuk[address] [place], [place] [address]Dr. Yilan Rocha Lauren Krusei Not detected Normal NOT DETECTED The [facility] Comment on above: Performed By: #### B CID2 ####[facility] Yinlhplaim[address] [place], [place] [address]Dr. Yilan Rocha Lauren Parapsilosis Not detected Normal NOT DETECTED [facility] Comment on above: Performed By: #### B CID2 ####[facility] Jioeifddiy18[address] [place] [address]Dr. Yilan Rocha Lauren Tropicalis Not detected Normal NOT DETECTED [facility] Comment on above: Performed By: #### B CID2 ####[facility] Mxhrynjckw1238 [place] [phone]. Yimarcial Rocha CTX-M Resistant Gene Not Applicable Normal NOT DETECTE D [facility] Comment on above: Performed By: #### B CID2 ####[facility] Yfllkarvsx54[address] [place] [address]Dr. Yilan Rocha E. Cloacae complex Not detected Normal NOT DETECTED [facility] Comment on above: Performed By: #### B CID2 ####[facility] Xqbelrdoqq[address] [place], [place] [address]Dr. Ricardo Rocha E. faecalis Not detected Normal NOT DETECTED [facility] Comment on above: Performed By: #### B CID2 ####[facility] Vemaycgxkf[address] [place], [place] [address]Dr. Ricardo Rocha E. faecium Not detected Normal NOT DETECTED The [facility] Comment on above: Performed By: #### B CID2 ####[facility] Xomrvspqaq3267[address] [place], [place] [address]Dr. Ricardo Rocha Enterobacteriaceae Not detected Normal NOT DETECTED [facility] Comment on above: Performed By: #### B CID2 ####[facility] Czmoicelrk66[address] [place], [place] [address]Dr. Ricardo Rocha Escherichia coli Not detected Normal NOT DETECTED [facility] Comment on above: Performed By: #### B CID2 ####[facility] Dypfyxepjt[address] [place], [place] [address]Dr. Ricardo Rocha H. influenzae Not detected Normal NOT DETECTED The [facility] Comment on above: Performed By: #### B CID2 ####[facility] Icgnyckjjj79[address] [place], [place] [address]Dr. Ricardo Rocha IMP Resistant Gene Not Applicable Normal NOT DETECTED [facility] Comment on above: Performed By: #### B CID2 ####[facility] Wfivpecyqo0065[address] [place], [place] [address]Dr. Ricardo Rocha K. oxytoca Not detected Normal NOT DETECTED The [facility] Comment on above: Performed By: #### B CID2 ####[facility] Psvgisfokg7606[address] [place], [place] [address]Dr. Ricardo Rocha K. pneumoniae Not detected Normal NOT DETECTED The [facility] Comment on above: Performed By: #### B CID2 ####[facility] Xxeyoxofxg7524[address] [place], [place] [address]Dr. Ricardo Rocha Klebsiella aerogenes Not detected Normal NOT DETECTED [facility] Comment on above: Performed By: #### B CID2 ####[facility] Knunkmzifj7095[address] [place], [place] [address]Dr. Ricardo Rocha KPC Resistant Gene Not Applicable Normal NOT DETECTED [facility] Comment on above: Performed By: #### B CID2 ####[facility] Jukuhgxeqm84[address] [place] [address]Dr. Ricardo Rocha List. monocytogenes Not detected Normal NOT DETECTED T [facility] Comment on above: Performed By: #### B CID2 ####[facility] Sxnvclgjdl1460 [place] [address]Dr. Ricardo Rocha Mcr-1 Resistant Gene Not Applicable Normal NOT DETECTE D [facility] Comment on above: Performed By: #### B CID2 ####[facility] Kfqbtdqdgt8592[address] [place], [place] [address]Dr. Ricardo Rocha mecA/C Not Applicable Normal NOT DETECTED The [facility] Comment on above: Performed By: #### B CID2 ####[facility] Ojdwuothxd7375[address] [place], [place] [address]Dr. Ricardo Rocha mecA/C MREJ Detected Abnormal NOT DETECTED The [facility] Comment on above: Performed By: #### B CID2 ####[facility] Mvnlyenmva224[address] [place], [place] [address]Dr. Ricardo Rocha N. meningitidis Not detected Normal NOT DETECTED The [facility] Comment on above: Performed By: #### B CID2 ####[facility] Ivwdudxnbe6958[address] [place], [place] [address]Dr. Ricardo Rocha NDM Resistant Gene Not Applicable Normal NOT DETECTED [facility] Comment on above: Performed By: #### B CID2 ####[facility] Ckktiltnqj1982[address] [place], [place] [address]Dr. Ricardo Rocha Oxa-48-like Not Applicable Normal NOT DETECTED The [facility] Comment on above: Performed By: #### B CID2 ####[facility] Knatczpqon8699[address] [place], [place] [address]Dr. Ricardo Rocha Proteus Not detected Normal NOT DETECTED The [facility] Comment on above: Performed By: #### B CID2 ####[facility] Msgmeumdei0834[address] [place], [place] [address]Dr. Ricardo Rocha Pseud. aeruginosa Not detected Normal NOT DETECTED [facility] Comment on above: Performed By: #### B CID2 ####[facility] Ezkasfjnev7[address] [place] [address]Dr. Ricardo Rocha S. maltophilia Not detected Normal NOT DETECTED The [facility] Comment on above: Performed By: #### B CID2 ####[facility] Kbtxwwtsuh038[address] [place], [place] [address]Dr. Ricardo Rocha Salmonella Not detected Normal NOT DETECTED The [facility] Comment on above: Performed By: #### B CID2 ####[facility] Asbkczatrg6614[address] [place], [place] [address]Dr. Ricardo Rocha Seratia marcescens Not detected Normal NOT DETECTED [facility] Comment on above: Performed By: #### B CID2 ####[facility] Ujcidgsftq8432[address] [place], [place] [address]Dr. Ricardo Rocha Site: LEFT AC IV START Normal The [facility] Comment on above: Performed By: #### B CID2 ####[facility] Tyrqbqywps3[address] [place], [place] [address]Dr. Ricardo Rocha Staph. aureus Detected Critically abnormal NOT DETECTED [facility] Comment on above: Performed By: #### B CID2 ####[facility] Vufitjsyjc785[address] [place], [place] [address]Dr. Ricardo Rocha Staph. epidermidis Not detected Normal NOT DETECTED [facility] Comment on above: Performed By: #### B CID2 ####[facility] Gzbzvshfmy6[address] [place], [place] [address]Dr. Ricardo Rocah Staph. lugdunensis Not detected Normal NOT DETECTED [facility] Comment on above: Performed By: #### B CID2 ####[facility] Entnndckzn5010[address] [place], [place] [address]Dr. Ricardo Rocha Staphylococcus Detected Critically abnormal NOT DETECTED [facility] Comment on above: Performed By: #### B CID2 ####[facility] Yvwowvacsk3698[address] [place], [place] [address]Dr. Ricardo Rocha Strep. agalactiae Not detected Normal NOT DETECTED [facility] Comment on above: Performed By: #### B CID2 ####[facility] Xpmuesyrqr793280 [address] [place], [place] [address]Dr. Nanomarcial Rocha Strep. pneumoniae Not detected Normal NOT DETECTED [facility] Comment on above: Performed By: #### B CID2 ####[facility] Qatahaqeor8937[address] [place], [place] [address]Dr. Nanomarcial Rocha Strep. pyogenes Not detected Normal NOT DETECTED The [facility] Comment on above: Performed By: #### B CID2 ####[facility] Btoovuoxbp749380 [address] [place], [place] [address]Dr. Ricardo Rocha Streptococcus Not detected Normal NOT DETECTED The [facility] Comment on above: Performed By: #### B CID2 ####[facility] Okfajiwpvg398280 [address] [place], [place] [address]Dr. Ricardo Rocha Layne/B Resist. Gene Not Applicable Normal NOT DETECTED [facility] Comment on above: Performed By: #### B CID2 ####[facility] Bzogjdcxkq780[address] [place], [place] [address]Dr. Ricardo Rocha VIM Resistant Gene Not Applicable Normal NOT DETECTED [facility] Comment on above: Performed By: #### B CID2 ####[facility] Iqakzoxcyd808[address] [place], [place] [address]Dr. Ricardo Rocha BLOOD GASES BTYon 06-10-2022 02 MODE ROOM AIR Normal [facility] Comment on above: Performed By: #### A BG ####[facility] Ffipuivnnl3654[address] [place], [place] [address]Dr. Ricardo Rocha ALLENS TEST Positive Normal [facility] Comment on above: Performed By: #### A BG ####[facility] Efqwmnrlvh7824[address] [place], [place] [address]Dr. Ricardo Rocha Base excess Calc (Bld) [Moles/Vol] -4.5000 mmol/L Critically low -2.0-2.0 [facility] Comment on above: Performed By: #### A BG ####[facility] Mmgzkawffi5255[address] [place], [place] [address]Dr. Ricardo Rocha BIPAP PRESSURE Normal The [facility] Comment on above: Performed By: #### A BG ####[facility] Wctyagaxim95[address] [place] [address]Dr. Ricardo Rocha CPAP Normal [facility] Comment on above: Performed By: #### A BG ####[facility] Krolyksnqs8748 [place] [address]Dr. Ricardo Rocha FIO2 Normal [facility] Comment on above: Performed By: #### A BG ####[facility] Kouwspxeoi3601 [place] [address]Dr. Ricardo Rocha HCO3 (Bld) [Moles/Vol] 21.4 mmol/L Critically low 22.0-26.0 [facility] Comment on above: Performed By: #### A BG ####[facility] Adhnhcrjoh20[address] [place], [place] [address]Dr. Ricardo Rocha LPM Normal [facility] Comment on above: Performed By: #### A BG ####[facility] Ntrzvtbeow9749[address] [place], [place] [address]Dr. Ricardo Rocha MINUTE VOLUME Normal The [facility] Comment on above: Performed By: #### A BG ####[facility] Wbbevndcmh8[address] [place], [place] [address]Dr. Ricardo Rocha Oxygen (Bld) [Partial pressure] 66.4 mm[Hg] Critically low 80.0-100.0 [facility] Comment on above: Performed By: #### A BG ####[facility] Ggglsscadf5103[address] [place], [place] [address]Dr. Ricardo Rocha Oxygen saturation in Blood 94.6 % Critically low 95.0-100.0 [facility] Comment on above: Performed By: #### A BG ####[facility] Fnrwaeegkh3999[address] [place], [place] [address]Dr. Ricardo Rocha PCO2 29.4 mmHg Critically low 35.0-45.0 The [facility] Comment on above: Performed By: #### A BG ####[facility] Gmryvqagmj2416[address] [place], [place] [address]Dr. Ricardo Rocha PEEP Normal [facility] Comment on above: Performed By: #### A BG ####[facility] Vietumdvim4319 [place] [address]Dr. Ricardo Rocha pH (Bld) 7.436 [pH] Normal 7.350-7.450 [facility] Comment on above: Performed By: #### A BG ####[facility] Etktmsmmhv9044 [place] [address]Dr. Ricardo Rocha PIP Normal [facility] Comment on above: Performed By: #### A BG ####[facility] Vpwasbxsbw6692 [place] [address]Dr. Ricardo Rocha PS [facility] Comment on above: Performed By: #### A BG ####[facility] Xyxfsusjjz475[address] [place], [place] [address]Dr. Ricardo Rocha PUNCTURE SITE LR Normal The [facility] Comment on above: Performed By: #### A BG ####[facility] Kihrckkkym4[address] [place], [place] [address]Dr. Ricardo Rocha RATE [place] [facility] Comment on above: Performed By: #### A BG ####[facility] Gawzusewqe5459[address] [place], [place] [address]Dr. Ricardo Rocha VENT MODE [facility] Comment on above: Performed By: #### A BG ####[facility] Jrhjyrnaoo075[address] [place], [place] [address]Dr. Ricardo Rocha [place] [facility] Comment on above: Performed By: #### A BG ####[facility] Beftqtejjv9992[address] [place], [place] [address]Dr. Ricardo Rocha CBC W MANUAL DIFFon 06-10-20 22 ATYPICAL LYMPH # Normal [facility] Comment on above: Performed By: #### C BCMAN ####[facility] Qgdqhwibvw5041 [place] [address]Dr. Ricardo Rocha ATYPICAL LYMPH % Normal [facility] Comment on above: Performed By: #### C BCMAN ####[facility] Tjrwkskfqw0409 [place] [address]Dr. Ricardo Rocha BAND # 1.3 103/ul Critically high 0.0-0.3 [facility] Comment on above: Performed By: #### C BCMAN ####[facility] Ojkdfstsux9683 [place] [id number]. Ricardo Rocha BAND % 12 % Critically high 0-5 [facility] Comment on above: Performed By: #### C BCMAN ####[facility] Toneielzzn0368 [place], [place] [address]Vc. Yimarcial Rocha BASOM # 0.00 103/ul Normal 0.00-0.10 [facility] Comment on above: Performed By: #### C BCMAN ####[facility] Rfcaqhknzl9661 [place] [id number]. Yimarcial Rocha BASOM % 0.0 % Critically low 0.2-2.0 The [facility] Comment on above: Performed By: #### C BCMAN ####[facility] Hgcvxkfgzc3136 [place] [address]Dr. Yimarcial Rocha BLAST # Normal [facility] Comment on above: Performed By: #### C BCRED ####[facility] Dgezcpcrns9892 [place] [address]Dr. Ricardo Rocha BLAST % Normal [facility] Comment on above: Performed By: #### C BCMAN ####[facility] Bdjvulzycx2723 [place] [address]Dr. Ricardo Rocha CORRECTED WBC Normal 4.0-11.0 The [facility] Comment on above: Performed By: #### C BCMAN ####[facility] Omhqqokjin3828 [place] [address]Dr. Yimarcial Rocha EOS # 0.00 103/ul Normal 0.00-0.70 [facility] Comment on above: Performed By: #### C BCMAN ####[facility] Ecoaljipll[address] [place], [place] [address]Dr. Yimarcial Rocha EOS% 0.0 % Critically low 0.9-7.0 The [facility] Comment on above: Performed By: #### C BCMAN ####[facility] Bacublotbo2156 [place] [id number]. Yilan Rocha HCT 35.5 % Critically low 36.0-48.0 The [facility] Comment on above: Performed By: #### C DWAINE ####[facility] Pbwzgnijlg0778 [place], [place] [address]Cp. Ricardo Rocha HGB 11.4 g/dl Critically low 12.0-16.0 [facility] Comment on above: Performed By: #### C DWAINE ####[facility] Mxzeavlvmb3704 [place] [id number]. Ricardo Rocha HYPERSEG NEUT 3+ Normal The [facility] Comment on above: Performed By: #### C DWAINE ####[facility] Oliopcbrfb4536 [place], [place] [address]Uu. Ricardo Rocha LYMPHM # 0.21 103/ul Critically low 1.20-3.80 [facility] Comment on above: Performed By: #### C DWAINE ####[facility] Fihstxlxhi6178 [place] [address]Dr. Ricardo Rocha LYMPHM% 2.0 % Critically low 20.5-60.0 [facility] Comment on above: Performed By: #### C DWAINE ####[facility] Dzoioscksk6411 [place] [address]Dr. Ricardo Rocha MCH 25.3 pg Critically low 26.7-34.0 [facility] Comment on above: Performed By: #### C DWAINE ####[facility] Ntlpduegda3739 [place] [address]Dr. Ricardo Rocha MCHC 32.1 g/dl Normal 29.9-35.2 [facility] Comment on above: Performed By: #### C DWAINE ####[facility] Mnbrkndavi8956 [place], [place] [address]Ja. Ricardo Rocha MCV 78.9 fL Critically low 81.0-99.0 [facility] Comment on above: Performed By: #### C DWAINE ####[facility] Nsimevjmai0732 [place] [id number]. Ricardo Rocha METAMYELOCYTE # Normal [facility] Comment on above: Performed By: #### C DWAINE ####[facility] Ktxclpsmua0541 [place] [address]Dr. Ricardo Rocha METAMYELOCYTE % Normal [facility] Comment on above: Performed By: #### C DWAINE ####[facility] Syjsqwjodv0538 [place] [address]Dr. Ricardo Rocha MONOM# 0.32 103/ul Normal 0.30-0.80 [facility] Comment on above: Performed By: #### C DWAINE ####[facility] Nisdinsgvd5121 [place] [address]Dr. Ricardo Rocha MONOM% 3.0 % Normal 1.7-12.0 [facility] Comment on above: Performed By: #### C DWAINE ####[facility] Ektfjtmwmc7303 [place] [address]Dr. Ricardo Rocha MPV 10.9 fL Normal 9.5-13.5 [facility] Comment on above: Performed By: #### C DWAINE ####[facility] Nszczcnluw[address] [place], [place] [address]Dr. Ricardo Rocha MYELOCYTE # Normal [facility] Comment on above: Performed By: #### C DWAINE ####[facility] Opjendnbyy5[address] [place], [place] [address]Dr. Ricardo Rocha MYELOCYTE % Normal [facility] Comment on above: Performed By: #### C DWAINE ####[facility] Vurllzvhaf4[address] [place], [place] [address]Dr. Ricardo Rocha NRBC Normal [facility] Comment on above: Performed By: #### C DWAINE ####[facility] Cqattyobof0947 [place] [id number]. Ricardo Rocha PLT 180 103/ul Normal 150-450 [facility] Comment on above: Performed By: #### C DWAINE ####[facility] Ndhcjhwstr[address] [place], [place] [address]Dr. Ricardo Rocha RBC 4.50 106/ul Normal 4.20-5.40 [facility] Comment on above: Performed By: #### C DWAINE ####[facility] Jzfovhpcmz4846 [place] [address]Dr. Ricardo Rocha RDW 12.8 % Normal 11.0-15.0 [facility] Comment on above: Performed By: #### C BCMAN ####[facility] Hvltnhohjm7242 [place] [id number]. Ricardo Rocha SEG # 8.71 103/ul Critically high 1.40-6.50 [facility] Comment on above: Performed By: #### C BCMAN ####[facility] Exwbyzqrtr0653 [place] [id number]. Ricardo Rocha SEG % 83.0 % Critically high 43.0-75.0 [facility] Comment on above: Performed By: #### C BCMAN ####[facility] Qbtmkaeyoa[address] [place], [place] [address]Dr. Ricardo Rocha TOXIC GRANULATION 2+ Normal [facility] Comment on above: Performed By: #### C BCMAN ####[facility] Vlobiljflb8759 [place] [address]Dr. Ricardo Rocha WBC 10.5 103/ul Normal 4.0-11.0 [facility] Comment on above: Performed By: #### C BCMAN ####[facility] Dhgsfowofm[address] [place], [place] [address]Dr. Ricardo Rocha CULTURE BLOODon 06-10-2022 Microscopic examination of blood, culture Culture Observations: Positive blood culture. Pediatric bottle. Culture Observations: Please refer to for susceptibility testing. Isolate 1 Staphylococcus aureus Growth of Normal [facility] Comment on above: Performed By: #### B LDCX2 ####[facility] Lcahakiikc8[address] [place], [place] [address]Dr. Ricardo Rocha LACTATE/LACTIC ACIDon 2021 Lactate [Moles/Vol] 1.9 mmol/L Normal 0.4-1.9 [facility] Comment on above: Performed By: #### L ACT ####[facility] Mvbijmxegu4[address] [place], [place] [address]Dr. Ricardo Rocha LIPASEon 06-10-2022 Lipase [Catalytic activity/Vol] 164.0 U/L Normal 73.0-393.0 [facility] Comment on above: Performed By: #### H STROPN, LIPA, CMP, TSH ####[facility] Uynfbnogio04[address] [place] [address]Dr. Ricardo Rocha POINT OF CARE GLUCOSEon 05-22 Glucose [Mass/Vol] 583 mg/dL Critically high 74-106 T [facility] Comment on above: Result Comment: Resu lt Not Confirmed Performed By: #### P OCGLUC ####[facility] Dwghnkhtkx99[address] [place] [address]Dr. Ricardo Rocha PROF 14(COMP METB)on 022 Albumin [Mass/Vol] 3.0 g/dL Critically low 3.4-5.0 [facility] Comment on above: Performed By: #### H STROPN, LIPA, CMP, TSH ####[facility] Iccooupaqm1835 [place] [address]Dr. Ricardo Rocha Albumin/Globulin [Mass ratio] 0.5 {ratio} Normal [facility] Comment on above: Performed By: #### H STROPN, LIPA, CMP, TSH ####[facility] Fphwmsishk1259 [place] [address]Dr. Ricardo Rocha ALP [Catalytic activity/Vol] 116 U/L Normal 46-116 [facility] Comment on above: Performed By: #### H STROPN, LIPA, CMP, TSH ####[facility] Zbhfdsorpa99[address] [place] [address]Dr. Ricardo Rocha ALT [Catalytic activity/Vol] 15 U/L Normal 14-59 [facility] Comment on above: Performed By: #### H STROPN, LIPA, CMP, TSH ####[facility] Nmtohiguma3205 [place] [address]Dr. Ricardo Rocha Anion gap [Moles/Vol] 15.7 mmol/L Normal [facility] Comment on above: Performed By: #### H STROPN, LIPA, CMP, TSH ####[facility] Dsaxvwbzed6705 [place] [address]Dr. Ricardo Rocha AST [Catalytic activity/Vol] 16 U/L Normal 15-37 [facility] Comment on above: Performed By: #### H STROPN, LIPA, CMP, TSH ####[facility] Fxhzdcwjfd2979 [place] [address]Dr. Ricardo Rocha Bilirubin [Mass/Vol] 0.5 mg/dL Normal 0.2-1.0 [facility] Comment on above: Performed By: #### H STROPN, LIPA, CMP, TSH ####[facility] Kyrafudcnw025[address] [place] [address]Dr. Ricardo Rocha Calcium [Mass/Vol] 9.4 mg/dL Normal 8.5-10.1 [facility] Comment on above: Performed By: #### H STROPN, LIPA, CMP, TSH ####[facility] Klldsfefgz3[address] [place] [address]Dr. Ricardo Rocha Chloride [Moles/Vol] 95 mmol/L Critically low 98-107 [facility] Comment on above: Performed By: #### H STROPN, LIPA, CMP, TSH ####[facility] [address] [place] [address]Dr. Ricardo Rocha CO2 [Moles/Vol] 22.1 mmol/L Normal 21.0-32.0 [facility] Comment on above: Performed By: #### H STROPN, LIPA, CMP, TSH ####[facility] [address] [place] [address]Dr. Ricardo Rocha Creatinine [Mass/Vol] 2.23 mg/dL Critically high 0.55-1.02 [facility] Comment on above: Performed By: #### H STROPN, LIPA, CMP, TSH ####[facility] [address] [place] [address]Dr. Ricardo Rocah EGFR-AF BAHAMIAN 27 mL/min/1.73m2 Critically low >=60 [facility] Comment on above: Performed By: #### H STROPN, LIPA, CMP, TSH ####[facility] [address] [place] [address]Dr. Ricardo Rocha EGFR-NON AF BAHAMIAN 22 mL/min/1.73m2 Critically low >=60 [facility] Comment on above: Performed By: #### H STROPN, LIPA, CMP, TSH ####[facility] [address] [place] [address]Dr. Ricardo Rocha Globulin (S) [Mass/Vol] 6.5 g/dL Normal [facility] Comment on above: Performed By: #### H STROPN, LIPA, CMP, TSH ####[facility] [address] [place] [address]Dr. Ricardo Rocha Glucose [Mass/Vol] 593 mg/dL Critically high 74-106 [facility] Comment on above: Performed By: #### H STROPN, LIPA, CMP, TSH ####[facility] [address] [place] [address]Dr. Ricardo Rocha Potassium [Moles/Vol] 3.8 mmol/L Normal 3.5-5.1 [facility] Comment on above: Performed By: #### H STROPN, LIPA, CMP, TSH ####[facility] [address] [place] [address]Dr. Ricardo Rocha Protein [Mass/Vol] 9.5 g/dL Critically high 6.4-8.2 [facility] Comment on above: Performed By: #### H STROPN, LIPA, CMP, TSH ####[facility] [address] [place] [address]Dr. Ricardo Rocha Sodium [Moles/Vol] 129 mmol/L Critically low 136-145 [facility] Comment on above: Performed By: #### H STROPN, LIPA, CMP, TSH ####[facility] [address] [place] [address]Dr. Ricardo Rocha Urea nitrogen [Mass/Vol] 40.0 mg/dL Critically high 7.0-18.0 [facility] Comment on above: Performed By: #### H STROPN, LIPA, CMP, TSH ####[facility] [address] [place] [address]Dr. Ricardo Rocha Urea nitrogen/Creatinine [Mass ratio] 17.9 mg/mg Normal [facility] Comment on above: Performed By: #### H STROPN, LIPA, CMP, TSH ####[facility] [address] [place] [address]Dr. Ricardo Rocha PROTIMEon 06-10-2022 INR Coag (PPP) [Relative time] 1.00 {INR} Normal [facility] Comment on above: Performed By: #### P TT, PT ####[facility] [address] [place] [address]Dr. Ricardo Rocha INR GUIDELINES SEE BELOW Normal [facility] Comment on above: Result Comment: AMBROSIO RED INR: 2.0 - 3.0 CONDITIONS NOT LISTED BELOW 2.5 - 3.5 FOR PROSTHETIC HEART VALVE REPLACEMENT 2.5 - 3.5 RECURRENT THROMBOSIS Performed By: #### P TT, PT ####[facility] [address] [place], [place] [address]Dr. Ricardo Rocha PT Coag (PPP) [Time] 10.8 s Normal 9.0-11.6 [facility] Comment on above: Performed By: #### P TT, PT ####[facility] [address] [place], [place] [address]Dr. Ricardo Rocha PTTon 06-10-2022 aPTT Coag (Bld) [Time] 31.7 s Normal 22.3-36.2 [facility] Comment on above: Performed By: #### P TT, PT ####[facility] [address] [place], [place] [address]Dr. Ricardo Rocha TROPONIN, HIGH SENSITIVITYon 06-10-2022 HSTROP 30.9 pg/mL Normal 4.0-51.3 [facility] Comment on above: Result Comment: CUT- OFF POINTS HAVE BEEN ESTABLISHED BASED ON THE FOURTH UNIVERSAL DEFINITIONS OF MYOCARDIALINFARCTION. THE UPPER REFERENCE LIMIT (URL) OF TROPONIN, DEFINED THE 99TH PERCENTILE OFcTnI DISTRIBUTION IN A REFERENCE POPULATION, HAS BEEN CONFIRMED THE DECISION THRESHOLDFOR IA DIAGNOSIS. Performed By: #### H STROPN, LIPA, CMP, TSH ####[facility] [address] [place] [address]Dr. Ricardo Rocha TSHon 06-10-2022 TSH 0.147 uIU/mL Critically low 0.358-3.740 [facility] Comment on above: Performed By: #### H STROPN, LIPA, CMP, TSH ####[facility] [address] [place] [address]Dr. Ricardo Rocha XR FOOT ALINE MIN 3 VIEWSon XR FOOT ALINE MIN 3 VIEWS Normal [facility] XR HAND RT MIN 3Von 06-02-20 XR HAND RT MIN 3V Normal [facility] CULTURE WOUNDon 05-15-2022 CULTURE WOUND Normal [facility] Comment on above: Performed By: #### W OUNDCX ####[facility] [address] [place], [place] [address]Dr. Ricardo Rocha CBC AUTO DIFFon 2022 BASO # 0.0 103/ul Normal 0.0-0.1 [facility] Comment on above: Performed By: #### C BC ####[facility] [address] [place] [address]Dr. Ricardo Rocha Basophils/100 WBC (Bld) 0.7 % Normal 0.2-2.0 [facility] Comment on above: Performed By: #### C BC ####[facility] [address] [place], [place] [address]Dr. Ricardo Rocha EO # 0.1 103/ul Normal 0.0-0.7 [facility] Comment on above: Performed By: #### C BC ####[facility] [address] [place] [address]Dr. Ricardo Rocha Eosinophils/100 WBC (Bld) 2.1 % Normal 0.9-7.0 [facility] Comment on above: Performed By: #### C BC ####[facility] [address] [place], [place] [address]Dr. Ricardo Rocha Erythrocyte distribution width (RBC) [Ratio] 13.2 % Normal 11.0-15.0 [facility] Comment on above: Performed By: #### C BC ####[facility] [address] [place] [address]Dr. Ricardo Rocha Hematocrit (Bld) [Volume fraction] 36.6 % Normal 36.0-48.0 [facility] Comment on above: Performed By: #### C BC ####[facility] [address] [place] [address]Dr. Ricardo Rocha Hemoglobin (Bld) [Mass/Vol] 11.9 g/dL Critically low 12.0-16.0 [facility] Comment on above: Performed By: #### C BC ####[facility] [address] [place] [address]Dr. Ricardo Rocha IG # 0.03 10e3/ul Normal 0.00-0.03 [facility] Comment on above: Performed By: #### C BC ####[facility] [address] [place] [address]Dr. Ricardo Rocha IG % 0.5 % Normal 0.0-0.5 [facility] Comment on above: Performed By: #### C BC ####[facility] [address] [place] [address]Dr. Ricardo Rocha LYMPH # 2.1 103/ul Normal 1.2-3.8 [facility] Comment on above: Performed By: #### C BC ####[facility] [address] [place] [address]DrIrina Nanomarcial Rocha Lymphocytes/100 WBC (Bld) 33.8 % Normal 20.5-60.0 [facility] Comment on above: Performed By: #### C BC ####[facility] [address] [place] [address]Dr. Nanomarcial Rocha MANUAL DIFF REQ NO Normal [facility] Comment on above: Performed By: #### C BC ####[facility] [address] [place] [address]DrIrina Ricardo Aj MCH (RBC) [Entitic mass] 25.7 pg Critically low 26.7-34.0 [facility] Comment on above: Performed By: #### C BC ####[facility] [address] [place], [place] [address]Dr. Ricardo Rocha MCHC (RBC) [Mass/Vol] 32.5 g/dL Normal 29.9-35.2 [facility] Comment on above: Performed By: #### C BC ####[facility] [address] [place] [id number]. Ricardo Aj MCV (RBC) [Entitic vol] 79.0 fL Critically low 81.0-99.0 [facility] Comment on above: Performed By: #### C BC ####[facility] [address] [place] [address]Dr. Nanomarcial Aj MONO # 0.4 103/ul Normal 0.3-0.8 [facility] Comment on above: Performed By: #### C BC ####[facility] [address] [place] [address]Dr. Ricardo Rocha Monocytes/100 WBC (Bld) 6.2 % Normal 1.7-12.0 [facility] Comment on above: Performed By: #### C BC ####[facility] [address] [place], [place] [address]Dr. Nanomarcial Aj NEUT # 3.5 103/ul Normal 1.4-6.5 [facility] Comment on above: Performed By: #### C BC ####[facility] [address] [place] [address]Dr. Nanomarcial Rocha Neutrophils/100 WBC (Bld) 56.7 % Normal 43.0-75.0 [facility] Comment on above: Performed By: #### C BC ####[facility] [address] [place] [address]Dr. Ricardo Aj Platelet mean volume (Bld) [Entitic vol] 10.9 fL Normal 9.5-13.5 [facility] Comment on above: Performed By: #### C BC ####[facility] [address] [place] [address]Dr. Nanomarcial Aj PLT 241 103/ul Normal 150-450 [facility] Comment on above: Performed By: #### C BC ####[facility] [address] [place] [address]Dr. Ricardo Aj RBC 4.63 106/ul Normal 4.20-5.40 [facility] Comment on above: Performed By: #### C BC ####[facility] [address] [place] [address]Dr. Ricardo Aj WBC 6.1 103/ul Normal 4.0-11.0 [facility] Comment on above: Performed By: #### C BC ####[facility] [address] [place] [address]Dr. Nanomarcial Rocha PROF CHEM 8 (BAS METB)on Anion gap [Moles/Vol] 11.8 mmol/L Normal [facility] Comment on above: Performed By: #### B MP ####[facility] [address] [place] [address]Dr. Ricardo Rocha Calcium [Mass/Vol] 9.2 mg/dL Normal 8.5-10.1 [facility] Comment on above: Performed By: #### B MP ####[facility] [address] [place], [place] [address]Dr. Ricardo Rocha Chloride [Moles/Vol] 99 mmol/L Normal 98-107 [facility] Comment on above: Performed By: #### B MP ####[facility] [address] [place], [place] [address]Dr. Ricardo Rocha CO2 [Moles/Vol] 24.7 mmol/L Normal 21.0-32.0 [facility] Comment on above: Performed By: #### B MP ####[facility] [address] [place] [address]Dr. Ricardo Aj Creatinine [Mass/Vol] 1.48 mg/dL Critically high 0.55-1.02 [facility] Comment on above: Performed By: #### B MP ####[facility] [address] [place] [address]Dr. Nanomarcial Aj EGFR-AF BAHAMIAN 43 mL/min/1.73m2 Critically low >=60 [facility] Comment on above: Performed By: #### B MP ####[facility] [address] [place] [address]Dr. Ricardo Rocha EGFR-NON AF BAHAMIAN 36 mL/min/1.73m2 Critically low >=60 [facility] Comment on above: Performed By: #### B MP ####[facility] [address] [place], [place] [address]Sn. Ricardo Rocha Glucose [Mass/Vol] 431 mg/dL Critically high 74-106 [facility] Comment on above: Performed By: #### B MP ####[facility] [address] [place] [address]Dr. Ricardo Rocha Potassium [Moles/Vol] 4.5 mmol/L Normal 3.5-5.1 [facility] Comment on above: Performed By: #### B MP ####[facility] [address] [place] [address]Dr. Ricardo Rocha Sodium [Moles/Vol] 131 mmol/L Critically low 136-145 [facility] Comment on above: Performed By: #### B MP ####[facility] [address] [place] [address]Dr. Ricardo Rocha Urea nitrogen [Mass/Vol] 23.0 mg/dL Critically high 7.0-18.0 [facility] Comment on above: Performed By: #### B MP ####[facility] [address] [place] [address]Dr. Ricardo Rocha Urea nitrogen/Creatinine [Mass ratio] 15.5 mg/mg Normal [facility] Comment on above: Performed By: #### B MP ####[facility] [address] [place] [address]Dr. Ricardo Rocha XR TOES ALINE MIN 2 Von 2021 XR TOES ALINE MIN 2 V Normal [facility] ALLIED HEALTHon 01-21-2021 ALLIED HEALTH HNO ID: [id number] Author: RT Parveen(R) Service: ? Author Type: Tar Roofer Type: Allied Health Filed: 01/20/2021 10:30 PM [...] Parveen(R) January 20, 2021 10:29 PM Normal [facility] Basic Metabolic Panlon 01-21 Anion gap [Moles/Vol] 7 mmol/L Low 9-18 [facility] Calcium [Mass/Vol] 8.8 mg/dL Normal 8.5-10.2 [facility] Chloride [Moles/Vol] 99 mmol/L Normal 97-105 [facility] CO2 [Moles/Vol] 25 mmol/L Normal 22-30 [facility] Creatinine [Mass/Vol] 1.51 mg/dL High 0.58-0.96 [facility] eGFR- Amer. 42 Normal [facility] ospital eGFR-All Other Races 35 . Normal [facility] Comment on above: Result Comment: eGFR (Estimated [...] GFR. Glucose [Mass/Vol] 141 mg/dL High 74-99 [facility] Comment on above: Result Comment: The [place] [employer] Association (ADA) provides guidance for cutoff [...] Standards of Medical Care in Diabetes 2016, [place] [employer]. Diabetes Care. 2016.39(Suppl 1). Potassium [Moles/Vol] 4.7 mmol/L Normal 3.7-5.1 [facility] Sodium [Moles/Vol] 131 mmol/L Low 136-144 [facility]spital Urea nitrogen [Mass/Vol] 42 mg/dL High 7-21 [facility] CBCon 01-21-2021 Absolute nRBC <0.01 Normal <0.01 [facility] Erythrocyte distribution width (RBC) [Ratio] 13.1 % Normal 11.5-15.0 [facility] Hematocrit (Bld) [Volume fraction] 30.0 % Low 36.0-46.0 [facility] Hemoglobin (Bld) [Mass/Vol] 9.5 g/dL Low 11.5-15.5 [facility] MCH 24.4 pG Low 26.0-34.0 [facility] MCHC (RBC) [Mass/Vol] 31.7 g/dL Normal 30.5-36.0 [facility] MCV (RBC) [Entitic vol] 77.1 fL Low 80.0-100.0 [facility] Platelet mean volume (Bld) [Entitic vol] 11.1 fL Normal 9.0-12.7 [facility] Platelets (Bld) [#/Vol] 358 10*3/uL Normal 150-400 [facility] RBC (Bld) [#/Vol] 3.89 10*6/uL Low 3.90-5.20 [facility] WBC (Bld) [#/Vol] 9.64 10*3/uL Normal 3.70-11.00 [facility] CNDSon 01-21-2021 CNDS HNO ID: [id number] Author: Inna Hansen DO Service: Hospital Medicine [...] Team: Attending Provider: Inna Hansen DO Physician Wireless Development Manager: Garrett Simon PA-C Consulting: Taurus Ballard MD [...] PCP: referred to a new PCP in [place]. Future Appointments Date Time Provider Department Center 01/29/2021 11:40 AM Taurus Ballard MD [facility] The patient's risk for 30-day readmission is determined using the following contributing factors: Pt variables contributing to increased readmission risk: 42 Most Recent (more content not included)... Normal [facility] MRI KIDNEY WO/W IVCONon 06-0 MRI KIDNEY WO/W IVCON * * *Final Report* * * DATE OF EXAM: Jan 20 2021 10:35PM [facility] 0721 - MRI KIDNEY WO/W IVCON / PROCEDURE REASON: Renal cyst * * * * Physician Interpretation * * * * EXAMINATION: MRI ABDOMEN WITHOUT AND WITH IV CONTRAST CLINICAL HISTORY: Renal mass characterization. TECHNIQUE: A renal MRI was performed on a MR system utilizing the torso phased-array coil. Pulse sequences included: axial precontrast T1 weighted in- and qnw-vb-vixot, axial and coronal HASTE, axial DWI with [...] be communicated with the ordering provider via [employer] staff message or phone message by [employer] within 2 business days of report finalization. Algorithms for management of incidental imaging findings can be found on the [facility] Intranet Sharepoint site at: [email or web address] [email or web address] 0Findi [email or web address]%20Imaging/Form s/AllItems.aspx [employer]ble [employer] Granite Polisher: GUILLE Transcribe Date/Time: Jan 21 2021 8:17A Dictated by : MALLORY AHN MD This examination was interpreted and the report reviewed and electronically signed by: MALLORY AHN MD on Jan 21 2021 8:49AM EST [id number] ACTIONABLE Invalid Interpretation Code [facility] Basic Metabolic Panlon 01-20 Anion gap [Moles/Vol] 11 mmol/L Normal 9-18 [facility] Calcium [Mass/Vol] 8.7 mg/dL Normal 8.5-10.2 [facility]spital Chloride [Moles/Vol] 97 mmol/L Normal 97-105 [facility] CO2 [Moles/Vol] 24 mmol/L Normal 22-30 [facility] Creatinine [Mass/Vol] 1.46 mg/dL High 0.58-0.96 [facility] eGFR- Amer. 44 Normal [facility] ospital eGFR-All Other Races 36 . Normal [facility] Comment on above: Result Comment: eGFR (Estimated [...] ospital Comment on above: Result Comment: The [place] [employer] (ADA) provides guidance for cutoff [...] Standards of Medical Care in Diabetes 2016, [place] [employer]. Diabetes Care. 2016.39(Suppl 1). Potassium [Moles/Vol] 3.9 mmol/L Normal 3.7-5.1 [facility] Sodium [Moles/Vol] 132 mmol/L Low 136-144 [facility] Urea nitrogen [Mass/Vol] 53 mg/dL High 7-21 [facility] CBCon 01-20-2021 Absolute nRBC <0.01 Normal <0.01 [facility] Erythrocyte distribution width (RBC) [Ratio] 12.8 % Normal 11.5-15.0 [facility] Hematocrit (Bld) [Volume fraction] 27.7 % Low 36.0-46.0 [facility] Hemoglobin (Bld) [Mass/Vol] 8.9 g/dL Low 11.5-15.5 [facility] MCH 24.5 pG Low 26.0-34.0 [facility] MCHC (RBC) [Mass/Vol] 32.1 g/dL Normal 30.5-36.0 [facility] MCV (RBC) [Entitic vol] 76.3 fL Low 80.0-100.0 [facility] Platelet mean volume (Bld) [Entitic vol] 11.1 fL Normal 9.0-12.7 [facility] Platelets (Bld) [#/Vol] 321 10*3/uL Normal 150-400 [facility] RBC (Bld) [#/Vol] 3.63 10*6/uL Low 3.90-5.20 [facility] WBC (Bld) [#/Vol] 11.05 10*3/uL High 3.70-11.00 [facility] CONSULT PROGon 01-20-2021 CONSULT PROG HNO ID: [id number] Author: Rajendra Cruz MD Service: Nephrology Author Type: Physician Type: Consult Progress Note Filed: 01/20/2021 1:44 PM Note Text: [facility] NEPHROLOGY CONSULT PROGRESS NOTE SERVICE DATE: [...] DATE: January 20, 2021 1:43 PM PHONE: [phone] FOR AFTER HOUR CONCERNS BETWEEN 7PM - 7AM CONTACT ON-CALL NEPHROLOGY STAFF Normal [facility] THERAPY NTon 01-20-2021 THERAPY NT HNO ID: [id number] Author: Afia Radford, PT Service: Physical Therapy Author Type: Physical Therapist Type: Therapy (PT/OT/Speech/Resp) Filed: 01/20/2021 3:32 PM Note Text: Physical Therapy Treatment SERVICE DATE: 01/20/2021 SERVICE TIME: 1330 to 1353 ROOM: [place] [address] Recommended Discharge Disposition: Home PT Recommended Discharge [...] 0 Tub/Shower Type: tub shower Laundry: basement, [id number]-qi-yww Equipment Owned: Cane;Standard Walker Prior Functional Level: [...] Diagnosis: Reduced mobility-other Interventions Provided: Gait Training (81635);Therapeutic Exercise (58145) Therapeutic Exercise (58463) Treatment Minutes: 8 Pt performed in supine position: AP, QS, GS x 10 B LE, pt instructed to do every hour while awake on their own. 7 days a week, HS, hip ABD, SAQ, SLR 10-20 reps/ 2-3x/day/ 7 days/week Gait Training (67040) Treatment Minutes: 15 $ Gait Training (34404) Billed Units: 1 unit Training AND education [...] 20, 2021 TIME: (more content not included)... [facility] THERAPY NT HNO ID: [id number] Author: Heidy Wright OT/L Service: Occupational Therapy Author Type: Occupational Therapist Type: Therapy (PT/OT/Speech/Resp) Filed: 01/20/2021 12:15 PM Note Text: Occupational Therapy Treatment SERVICE DATE: 01/20/2021 SERVICE TIME: 1155 to 1205 ROOM: [place] [address] Recommended Discharge Disposition: Home OT Recommended Discharge [...] 0 Tub/Shower Type: tub shower Laundry: basement, [id number]-pk-goq Equipment Owned: Cane;Standard Walker Prior Functional Level: [...] (generalized);General symptoms and signs-other Interventions Provided: Self Group Home Management (19733) Self Group Home Management (50691) Treatment Minutes: 10 $ Self Group Home Management (23322) Billed Units: 1 unit Training AND education provided in: Benefits of in (more content not included)... [facility] THERAPY NT HNO ID: [id number] Author: KRUNAL Navarro Service: Occupational Therapy Author Type: Occupational Therapist Type: Therapy (PT/OT/Speech/Resp) Filed: 01/20/2021 8:24 AM Note Text: OCCUPATIONAL THERAPY MISSED VISIT SERVICE DATE: 01/20/2021 SERVICE TIME: 819 to 819 ROOM: [place] [address] Attempted Treatment. Patient not seen due to Declined. Pt states, It's too early when OT attempted to work with her. Will re-attempt as schedule permits. SIGNATURE: Heidy Wright OT/Broder[place] PATIENT NAME: Aislinn Wheeler DATE: January 20, 2021 TIME: 8:24 AM Normal [facility] Basic Metabolic Panlon 01-19 Anion gap [Moles/Vol] 11 mmol/L Normal 9-18 [facility] Calcium [Mass/Vol] 8.5 mg/dL Normal 8.5-10.2 [facility] Chloride [Moles/Vol] 93 mmol/L Low 97-105 [facility] CO2 [Moles/Vol] 24 mmol/L Normal 22-30 [facility] Creatinine [Mass/Vol] 1.92 mg/dL High 0.58-0.96 [facility] eGFR- Amer. 32 Normal [facility] ospital eGFR-All Other Races 26 . Normal [facility] Comment on above: Result Comment: eGFR (Estimated [...] ospital Comment on above: Result Comment: The [place] [employer] (ADA) provides guidance for cutoff [...] Standards of Medical Care in Diabetes 2016, [place] [employer]. Diabetes Care. 2016.39(Suppl 1). Potassium [Moles/Vol] 4.2 mmol/L Normal 3.7-5.1 [facility] Sodium [Moles/Vol] 128 mmol/L Low 136-144 [facility] Urea nitrogen [Mass/Vol] 77 mg/dL High 7-21 [facility] Anion gap [Moles/Vol] 11 mmol/L Normal 9-18 [facility] Calcium [Mass/Vol] 8.3 mg/dL Low 8.5-10.2 [facility] Chloride [Moles/Vol] 88 mmol/L Low 97-105 [facility] CO2 [Moles/Vol] 23 mmol/L Normal 22-30 [facility] Creatinine [Mass/Vol] 1.93 mg/dL High 0.58-0.96 [facility] eGFR- Amer. 32 Normal [facility] ospital eGFR-All Other Races 26 . Normal [facility] Comment on above: Result Comment: eGFR (Estimated [...] GFR. Glucose [Mass/Vol] 292 mg/dL High 74-99 [facility] Comment on above: Result Comment: The [place] [employer] (ADA) provides guidance for cutoff [...] Standards of Medical Care in Diabetes 2016, [place] [employer]. Diabetes Care. 2016.39(Suppl 1). Potassium [Moles/Vol] 3.8 mmol/L Normal 3.7-5.1 [facility] Sodium [Moles/Vol] 122 mmol/L Low 136-144 [facility] Urea nitrogen [Mass/Vol] 82 mg/dL High 7-21 [facility] CBCon 01-19-2021 Absolute nRBC <0.01 Normal <0.01 [facility] Erythrocyte distribution width (RBC) [Ratio] 12.8 % Normal 11.5-15.0 [facility] Hematocrit (Bld) [Volume fraction] 27.5 % Low 36.0-46.0 [facility] Hemoglobin (Bld) [Mass/Vol] 9.1 g/dL Low 11.5-15.5 [facility] MCH 24.9 pG Low 26.0-34.0 [facility] MCHC (RBC) [Mass/Vol] 33.1 g/dL Normal 30.5-36.0 [facility] MCV (RBC) [Entitic vol] 75.1 fL Low 80.0-100.0 [facility] Platelet mean volume (Bld) [Entitic vol] 11.2 fL Normal 9.0-12.7 [facility] Platelets (Bld) [#/Vol] 297 10*3/uL Normal 150-400 [facility] RBC (Bld) [#/Vol] 3.66 10*6/uL Low 3.90-5.20 [facility] WBC (Bld) [#/Vol] 12.14 10*3/uL High 3.70-11.00 [facility] CONSULT PROGon 01-19-2021 CONSULT PROG HNO ID: [id number] Author: Rajendra Cruz MD Service: Nephrology Author Type: Physician Type: Consult Progress Note Filed: 01/19/2021 2:40 PM Note Text: [facility] NEPHROLOGY CONSULT PROGRESS NOTE SERVICE DATE: [...] DATE: January 19, 2021 2:27 PM PHONE: [phone] FOR AFTER HOUR CONCERNS BETWEEN 7PM - 7AM CONTACT ON-CALL NEPHROLOGY STAFF Normal [facility] NUTRITIONon 01-19-2021 NUTRITION HNO ID: [id number] Author: Michelle Louis RD Service: Nutrition Therapy [...] history;Intake records;Patient/family self-report;Weight loss;Nausea;Vomiting Estimated kilocalorie needs: 8598-6731 Calorie Calculation Method: 30-35 kcals/kg Estimated protein [...] Question: Carbohydrate Control Answer: 3-5 CARBS/MEAL 01/18/21 5596 Anthropometrics: Height: 152.4 cm (5') Weight: 44.1 [...] January 19, 2021 TIME: 10:59 AM PAGER: [phone] I have reviewed the nutritional assessment note documented by the finance intern and I personally participated in the miller components. I have discussed the case and nutritional management of the patient's care. Michelle Louis MS,RD,LD,[facility] THERAPY NTon 01-19-2021 THERAPY NT HNO ID: [id number] Author: Afia Radford, PT Service: Physical Therapy Author Type: Physical Therapist Type: Therapy (PT/OT/Speech/Resp) Filed: 01/19/2021 2:57 PM Note Text: Physical Therapy Evaluation SERVICE DATE: 01/19/2021 SERVICE TIME: 1307 to 1331 ROOM: [place] [address] Recommended Discharge Disposition: Home PT Anticipated Discharge [...] 0 Tub/Shower Type: tub shower Laundry: basement, [id number] Equipment Owned: Cane;Standard Walker Prior Functional Level: [...] Diagnosis: Reduced mobility-other Interventions Provided: Evaluation;Therapeutic Exercise (73314);Gait Training (99250) $ Evaluation-Low (33630) Billed Units: 1 unit Therapeutic Exercise (68507) Treatment Minutes: 1 Patient performed in seated position: Marching, AP/HR, hip ABD, LAQ x10 B LE- instructions written on white board for pt to complete on her own. Gait Training (28077) Treatment Minutes: 8 $ Gait Training (17400) Billed Units: 1 unit Training AND education [...] present during visit: Aleksander Syed, SPT Normal [facility] Basic Metabolic Panlon 01-18 Anion gap [Moles/Vol] 13 mmol/L Normal 9-18 [facility] Calcium [Mass/Vol] 8.8 mg/dL Normal 8.5-10.2 [facility] ospital Chloride [Moles/Vol] 88 mmol/L Low 97-105 [facility] CO2 [Moles/Vol] 22 mmol/L Normal 22-30 [facility] Creatinine [Mass/Vol] 2.21 mg/dL High 0.58-0.96 [facility] eGFR- Amer. 27 Normal [facility] ospital eGFR-All Other Races 23 . Normal [facility] Comment on above: Result Comment: eGFR (Estimated [...] ospital Comment on above: Result Comment: The [place] [employer] (ADA) provides guidance for cutoff [...] Standards of Medical Care in Diabetes 2016, [place] [employer]. Diabetes Care. 2016.39(Suppl 1). Potassium [Moles/Vol] 3.7 mmol/L Normal 3.7-5.1 [facility] Sodium [Moles/Vol] 123 mmol/L Low 136-144 [facility] Urea nitrogen [Mass/Vol] 93 mg/dL High 7-21 [facility] Anion gap [Moles/Vol] 16 mmol/L Normal 9-18 [facility] Calcium [Mass/Vol] 9.0 mg/dL Normal 8.5-10.2 [facility] Chloride [Moles/Vol] 93 mmol/L Low 97-105 [facility] CO2 [Moles/Vol] 21 mmol/L Low 22-30 [facility] Creatinine [Mass/Vol] 2.59 mg/dL High 0.58-0.96 [facility] eGFR- Amer. 23 Normal [facility] o[facility] eGFR-All Other Races 19 . Normal [facility] Comment on above: Result Comment: eGFR (Estimated [...] GFR. Glucose [Mass/Vol] 130 mg/dL High 74-99 [facility] Comment on above: Result Comment: The [place] Diabetes [employer] (ADA) provides guidance for cutoff [...] Standards of Medical Care in Diabetes 2016, [place] [employer]. Diabetes Care. 2016.39(Suppl 1). Potassium [Moles/Vol] 4.7 mmol/L Normal 3.7-5.1 [facility] Sodium [Moles/Vol] 130 mmol/L Low 136-144 [facility] Urea nitrogen [Mass/Vol] 97 mg/dL High 7-21 [facility] [id number] Author: Nicol Landin RN Service: ? 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 Stated Goals: To have reduction in pain;To [...] scheduled Advance Directive: Current Advance Directive: None Chip Mucker Attempted to Assist with AD Completion: Yes [...] Walker Has the Patient Been in a Prison Facility in the Past 30 days?: No [...] and plan for meeting these needs: Patient's zwlrttex-am-coz and son live close by and come over to help often Patient's perception of need for this admission: necessary Medication Adherance I am convinced of the importance of my prescription medication: 0 - Agree Completely I worry that my prescription medication will do more harm than good to me : 0 - Disagree Completely I feel financially burdened by my yng-ou-ylfxqo expenses for my prescription medication:: 0 - Disagree Completely Risk Score: 0 Patient is categorized as: Low risk < 2 Are you interested in bedside delivery of your medications? Yes Is Patient Psychosocially Complex?: Yes, refer to Social Work ASSESSMENT AND PLAN: Medical Needs: Medical Needs: Two or more chronic diseases Psychosocial Needs: Psychosocial Needs: None FREEDOM OF CHOICE EXPLAINED: Hardy of Choice Given: No Reason Not Given: [...] and hospitalized about 1 month ago in [place] but no resolution of her symptoms. She [...] 18, 2021 TIME: 10:51 AM PAGER/CONTACT #: [phone] Normal [facility] CBCon 01-18-2021 Absolute nRBC <0.01 Normal <0.01 [facility] Erythrocyte distribution width (RBC) [Ratio] 13.0 % Normal 11.5-15.0 [facility] Hematocrit (Bld) [Volume fraction] 31.2 % Low 36.0-46.0 [facility] Hemoglobin (Bld) [Mass/Vol] 9.9 g/dL Low 11.5-15.5 [facility] MCH 24.4 pG Low 26.0-34.0 [facility] MCHC (RBC) [Mass/Vol] 31.7 g/dL Normal 30.5-36.0 [facility] MCV (RBC) [Entitic vol] 77.0 fL Low 80.0-100.0 [facility] Platelet mean volume (Bld) [Entitic vol] 10.8 fL Normal 9.0-12.7 [facility] Platelets (Bld) [#/Vol] 310 10*3/uL Normal 150-400 [facility] RBC (Bld) [#/Vol] 4.05 10*6/uL Normal 3.90-5.20 [facility] WBC (Bld) [#/Vol] 17.03 10*3/uL High 3.70-11.00 [facility] CONSULTon 01-18-2021 CONSULT HNO ID: [id number] Author: Annie Trinidad DO Service: Hypertension AND [...] Noted a no-show appointment to urology at [facility]. She also reports that she has had [...] for n (more content not included)... Normal [facility] CONSULT HNO ID: [id number] Author: Taurus Ballard MD Service: Urology Author Type: Physician Type: Consults Filed: 01/18/2021 8:27 AM Note Text: [facility] UROLOGY CONSULT [...] the pa (more content not included)... Normal [facility] Creatinine,Urine,Ranon 01-18 Creatinine,Urine,Ran 33.5 mg/dL Normal 20-300 [facility] Comment on above: Performed By: #### U SAUNDRA, UOSM, UCRR ####[facility] [place] [facility] [place], [place] [phone] Magnesiumon 01-18-2021 Magnesium [Mass/Vol] 1.9 mg/dL Normal 1.7-2.3 [facility] NURSING PROGon 01-18-2021 NURSING PROG HNO ID: [id number] Author: Barbara Spicer RN Service: ? Author Type: Registered Nurse Type: Nursing Progress Note Filed: 01/18/2021 10:28 AM Note Text: Nursing Progress Note Patient Name: Aislinn Wheeler Patient Location: [place] [address] Daily Note:pt report given to pete LE. Pt VSS. Pt belongings packed. This note was completed by: Barbara Spicer Normal [facility] Osmolalityon 01-18-2021 Osmolality [Osmolality] 298 mosm/kg Normal 275-300 [facility] Comment on above: Performed By: #### O SM ####[facility] [place] [facility] [place], [place] [phone] Osmolality, Urineon 01-19-20 21 Osmolality, Urine 273 mOsm/kg Normal 50-1200 [facility] ospital Comment on above: Performed By: #### U SAUNDRA UOSM, UCRR ####[facility] [address] [place], [place] [phone] Sepsis Lactateon 01-18-2021 Sepsis Lactate 0.9 mmol/L Normal <2.1 [facility] Sodium,Urine,Randomon 2020 Sodium (U) [Moles/Vol] 32 mmol/L Normal 14-216 [facility] Comment on above: Performed By: #### U SAUNDRA, UOSM, UCRR ####[facility] [address] [place], [place] [phone] THERAPY NTon 01-18-2021 THERAPY NT HNO ID: [id number] Author: Wendy Montes De Oca OT/L Service: Occupational Therapy Author Type: Occupational Therapist Type: Therapy (PT/OT/Speech/Resp) Filed: 01/18/2021 1:10 PM Note Text: Occupational Therapy Evaluation SERVICE DATE: 01/18/2021 SERVICE TIME: 0854 to 0915 ROOM: [place] [address] Recommended Discharge Disposition: Home OT Recommended Discharge [...] 0 Tub/Shower Type: tub shower Laundry: basement, qfzkspin-on-vir Equipment Owned: Cane;Standard Walker CURRENT FUNCTIONAL STATUS: [...] and signs-other Interventions Provided: Evaluation $ Evaluation-Moderate (40746) Billed Units: 1 unit Training and education [...] DATE: January 18, 2021 TIME: 1:06 PM [facility] Urine Cultureon 01-18-2021 Bacteria identified Cx Nom (U) Sp. Request/Comment: - Specimen received in preservative Culture Result - No growth (<1,000 CFU/ml) [facility] Comment on above: Performed By: #### U RCUL ####[address] [phone] Blood Cultureon 01-17-2021 Bacteria identified Cx Nom (Bld) Culture Result - No growth 5 days Normal [facility] Comment on above: Performed By: #### B LCUL ####[place] [address] [place], [place] [phone] C-Reactive Proteinon 021 C-Reactive Protein 32.4 mg/dL High <0.9 [facility] ospital Comment on above: Performed By: #### W SR ####[address] [phone] CBC and Differentialon 01-17 Abs Baso <0.03 Normal <0.11 [facility] Abs Eosin <0.03 Normal <0.46 [facility] Abs [place] 0.73 k/uL Normal <0.87 [facility] Abs Neut 14.70 k/uL High 1.45-7.50 [facility] Absolute nRBC <0.01 Normal <0.01 [facility] Basophils/100 WBC (Bld) 0.1 % Normal [facility] DTYPE Auto Diff Normal [facility] Eosinophils/100 WBC (Bld) 0.0 % Normal [facility] Erythrocyte distribution width (RBC) [Ratio] 13.1 % Normal 11.5-15.0 [facility] Hematocrit (Bld) [Volume fraction] 35.1 % Low 36.0-46.0 [facility] Hemoglobin (Bld) [Mass/Vol] 11.3 g/dL Low 11.5-15.5 [facility] Lymphocytes (Bld) [#/Vol] 1.88 10*3/uL Normal 1.00-4.00 [facility] Lymphocytes/100 WBC (Bld) 10.8 % Normal [facility] MCH 24.2 pG Low 26.0-34.0 [facility] MCHC (RBC) [Mass/Vol] 32.2 g/dL Normal 30.5-36.0 [facility] MCV (RBC) [Entitic vol] 75.2 fL Low 80.0-100.0 [facility] Monocytes/100 WBC (Bld) 4.2 % Normal [facility] Neutrophils/100 WBC (Bld) 84.9 % Normal [facility] NRBCs 0.0 /100 WBC Normal 0 [facility] Platelet mean volume (Bld) [Entitic vol] 11.4 fL Normal 9.0-12.7 [facility] Platelets (Bld) [#/Vol] 345 10*3/uL Normal 150-400 [facility] RBC (Bld) [#/Vol] 4.67 10*6/uL Normal 3.90-5.20 [facility] WBC (Bld) [#/Vol] 17.33 10*3/uL High 3.70-11.00 [facility] CT ABD/PEL WO IVCONon 2020 CT ABD/PEL WO IVCON * * *Final Report* * * DATE OF EXAM: Jan 17 2021 8:05PM [facility] 0531 - CT ABD/PEL WO IVCON / PROCEDURE REASON: Mass or lump, abdomen pelvis * * * * Physician Interpretation * * * * CT OF CHEST, ABDOMEN AND PELVIS WITHOUT CONTRAST CLINICAL HISTORY: Aspiration (accession [id number]), Mass or lump, abdomen pelvis (accession [id number]) Concern for possible source of infection vs [...] report for details. Pelvic bones are intact. Data Center Project Manager (topogram) images: Unremarkable. IMPRESSION: Left upper lobe [...] be communicated with the ordering provider via [employer] staff message or phone message by Imaging Support Services within 2 business days of report finalization. ACTIONABLE RESULT: FOLLOW-UP Acuity: Actionable Findings: Kidneys/Ureters/Bladder /Adrenal Routing Code: GU_1 Recommendation: MRI KIDNEY WO/W IVCON Time Frame: non-urgent, but prompt follow-up. COMMUNICATION: Results will be communicated with the ordering provider via [employer] staff message or phone message by Imaging Support Services within 2 business days of report finalization. Algorithms for management of incidental imaging findings can be found on the [facility] Intranet Sharepoint site at: [email or web address]://[email or web address] [email or web address]/ Managing%20Incidental%2 0Findi ngs%20at%20Imaging/Form s/AllItems.aspx Marble And Granite Polisher: GUILLE Transcribe Date/Time: Jan 17 2021 8:20P Dictated by : PADILLA JIM MD This examination was interpreted and the report reviewed and electronically signed by: PADILLA JIM MD on Jan 17 2021 8:43PM EST [id number] ACTIONABLE Invalid Interpretation Code [facility] CT BRAIN WO IVCONon 01-18-[address] BRAIN WO IVCON * * *Final Report* * * DATE OF EXAM: Jan 17 2021 4:26PM [facility] 0504 - CT BRAIN WO IVCON [...] base and imaged soft tissues are unremarkable. Data Center Project Manager (topogram) images: No additional findings. IMPRESSION: No acute intracranial hemorrhage or mass effect is seen Marble And Granite Polisher: GUILLE Transcribe Date/Time: Jan 17 2021 4:47P Dictated by : JOHN THAKKAR MD This examination was interpreted and the report reviewed and electronically signed by: JOHN THAKKAR MD on Jan 17 2021 4:48PM EST [id number] [facility] CT CERVICAL SPINE WO IVCONon 01-17-2021 CT CERVICAL SPINE WO IVCON * * *Final Report* * * DATE OF EXAM: Jan 17 2021 4:26PM [facility] 0505 - CT CERVICAL SPINE WO [...] Counting reference: Craniocervical junction. Anatomic Variants: None. Data Center Project Manager (topogram) images: No additional findings. Alignment: Straightening [...] vertebrae with counting from the craniocervical junction. Marble And Granite Polisher: PSCB Transcribe Date/Time: Jan 17 2021 4:49P Dictated by : JOHN THAKKAR MD This examination was interpreted and the report reviewed and electronically signed by: JOHN THAKKAR MD on Jan 17 2021 4:53PM EST [id number] Normal [facility] CT CHEST WO IVCONon 01-18-[address] CHEST WO IVCON * * *Final Report* * * DATE OF EXAM: Jan 17 2021 8:05PM [facility] 0541 - CT CHEST WO IVCON / PROCEDURE REASON: Aspiration * * * * Physician Interpretation * * * * CT OF CHEST, ABDOMEN AND PELVIS WITHOUT CONTRAST CLINICAL HISTORY: Aspiration (accession [id number]), Mass or lump, abdomen pelvis (accession [id number]) Concern for possible source of infection vs [...] report for details. Pelvic bones are intact. Data Center Project Manager (topogram) images: Unremarkable. IMPRESSION: Left upper lobe [...] be communicated with the ordering provider via [employer] staff message or phone message by Imaging Support Services within 2 business days of report finalization. ACTIONABLE RESULT: FOLLOW-UP Acuity: Actionable Findings: Kidneys/Ureters/Bladder /Adrenal Routing Code: GU_1 Recommendation: MRI KIDNEY WO/W IVCON Time Frame: non-urgent, but prompt follow-up. COMMUNICATION: Results will be communicated with the ordering provider via [employer] staff message or phone message by Imaging Support Services within 2 business days of report finalization. Algorithms for management of incidental imaging findings can be found on the [facility] Intranet Sharepoint site at: http://[email or web address] [email or web address]/ Managing%20Incidental%2 0Findi ngs%20at%20Imaging/Form s/AllItems.aspx Marble And Granite Polisher: GUILLE Transcribe Date/Time: Jan 17 2021 8:20P Dictated by : PADILLA JIM MD This examination was interpreted and the report reviewed and electronically signed by: PADILLA JIM MD on Jan 17 2021 8:43PM EST [id number] ACTIONABLE Invalid Interpretation Code [facility] CT LUMBAR SPINE WO IVCONon 0 01-17-2021 CT LUMBAR SPINE WO IVCON * * *Final Report* * * * * * SEE BOTTOM OF REPORT FOR ADDENDED TEXT * * * DATE OF EXAM: Jan 17 2021 5:34PM [facility] 0508 - CT LUMBAR SPINE WO [...] are 5 lumbar-type vertebrae. Anatomic variant: None. Data Center Project Manager (topogram) images: No additional findings. Alignment: Alignment [...] on 01/17/2021 6:08 PM via verbal communication. Marble And Granite Polisher: GUILLE Transcribe Date/Time: Jan 17 2021 6:05P Dictated by : JOHN THAKKAR MD This examination was interpreted and the report reviewed and electronically signed by: JOHN THAKKAR MD on Jan 17 2021 6:01PM EST This document has been addended by: JOHN THAKKAR MD on Jan 17 2021 6:08PM EST [id number] Normal [facility] CT THORACIC SPINE WO IVCONon 01-17-2021 CT THORACIC SPINE WO IVCON * * *Final Report* * * DATE OF EXAM: Jan 17 2021 5:34PM [facility] 0514 - CT THORACIC SPINE WO [...] the purposes of this report, anatomic variants: Data Center Project Manager (topogram) images: No additional findings. Alignment: Alignment [...] and assume there are 5 lumbar-type vertebrae. Marble And Granite Polisher: GUILLE Transcribe Date/Time: Jan 17 2021 6:03P Dictated by : JOHN THAKKAR MD This examination was interpreted and the report reviewed and electronically signed by: JOHN THAKKAR MD on Jan 17 2021 6:13PM EST [id number] Normal [facility] Comp Metabolic Panelon 01-17 Albumin [Mass/Vol] 3.0 g/dL Low 3.9-4.9 [facility] ALP [Catalytic activity/Vol] 162 U/L High 34-123 [facility] ALT [Catalytic activity/Vol] 7 U/L Normal 7-38 [facility] Anion gap [Moles/Vol] 17 mmol/L Normal 9-18 [facility] AST [Catalytic activity/Vol] 15 U/L Normal 13-35 [facility] Bilirubin [Mass/Vol] 0.4 mg/dL Normal 0.2-1.3 [facility] Calcium [Mass/Vol] 9.6 mg/dL Normal 8.5-10.2 [facility] Chloride [Moles/Vol] 83 mmol/L Low 97-105 [facility] CO2 [Moles/Vol] 20 mmol/L Low 22-30 [facility] Creatinine [Mass/Vol] 2.93 mg/dL High 0.58-0.96 [facility] eGFR- Amer. 20 Normal [facility] eGFR-All Other Races 16 . Normal [facility] Comment on above: Result Comment: eGFR (Estimated [...] GFR. Glucose [Mass/Vol] 216 mg/dL High 74-99 [facility] Comment on above: Result Comment: The [place] [employer] (ADA) provides guidance for cutoff [...] Standards of Medical Care in Diabetes 2016, [place] [employer]. Diabetes Care. 2016.39(Suppl 1). Potassium [Moles/Vol] 5.5 mmol/L High 3.7-5.1 [facility] Protein [Mass/Vol] 9.5 g/dL High 6.3-8.0 [facility] Sodium [Moles/Vol] 120 mmol/L Low 136-144 [facility] Comment on above: Result Comment: Resu lt checked and verified Urea nitrogen [Mass/Vol] 104 mg/dL High 7-21 [facility] ED NOTEon 01-17-2021 ED NOTE HNO ID: [id number] Author: Prerna Luke RN Service: ? Author Type: Registered Nurse Type: ED Notes Filed: 01/17/2021 9:32 PM Note Text: Report called to 4E RN. Patient stable for transport at this time. Normal [facility] ED NOTE HNO ID: [id number] Author: Prerna Luke RN Service: ? Author Type: Registered Nurse Type: ED Notes Filed: 01/17/2021 9:20 PM Note Text: 16Fr chaves inserted with 500 cc urine immediately drained. Patient tolerated well. [facility] ED NOTE HNO ID: [id number] Author: Prerna Luke RN Service: ? Author Type: Registered Nurse Type: ED Notes Filed: 01/17/2021 7:22 PM Note Text: BC obtained by lab. ABX infusing at this time. [facility] ED NOTE HNO ID: [id number] Author: Prerna Luke RN Service: ? Author Type: Registered Nurse Type: ED Notes Filed: 01/17/2021 7:06 PM Note Text: This RN and 2 medics unable to straight stick patient for blood or draw from existing IVs. Lab will draw one set of BC; GIANNI Tucker notified that only one set will be obtained. [facility] ED NOTE HNO ID: [id number] Author: Prerna Luke RN Service: ? Author Type: Registered Nurse Type: ED Notes Filed: 01/17/2021 4:25 PM Note Text: XR at bedside [facility] ED NOTE HNO ID: [id number] Author: Prerna Luke RN Service: ? Author Type: Registered Nurse Type: ED Notes Filed: 01/17/2021 4:03 PM Note Text: covid swab obtained and walked to lab. [facility] ED NOTE HNO ID: [id number] Author: Bharat Patterson RN Service: ? Author [...] time Reports oral intake has been poor [facility] ED PROV NOTEon 01-17-2021 ED PROV NOTE HNO ID: [id number] Author: Garrett Simon PA-C Service: Emergency Medicine Author Type: Physician Wireless Development Manager Type: ED Provider Notes Filed: 01/17/2021 9:27 PM Note Text: Attestation signed by Cory Crawley III, MD at 01/18/2021 12:06 PM Attending Note I have personally performed a face to face assessment of the patient and have reviewed the PA/SHIPPING MANAGER note. My miller findings include: This is [...] with reevaluation by ED attending. Signature: Cory Crawlye III Date: 01/18/2021 Time: 12:05 PM ED [...] significant midlin (more content not included)... Normal [facility] HISTORY PHYSICALon HISTORY PHYSICAL HNO ID: [id number] Author: Trevor Porras MD Service: Hospital Medicine Author Type: Physician Type: HANDP Filed: 01/17/2021 10:12 PM Note Text: DEPARTMENT OF HOSPITAL MEDICINE HISTORY AND PHYSICAL EXAM SERVICE DATE: 01/17/2021 Code Status: Not on file SERVICE TIME: 10:00 PM Primary Care Physician: No Pcp NIGHT AND WEEKEND COVERAGE: [place] COVERAGE: Days: [phone], please contact via [employer] - Connective Software Engineeringsage Nights: [phone], please page CC Hospitalist Night coverage pager [phone] Subjective CHIEF COMPLAINT: Generalized weakness, falls HPI: [...] Most recen (more content not included)... Normal [facility] Intermed Rapid COVIDon 01-17 SARS-CoV-2 (COVID-19) RNA ADRIEL+probe Ql (Unsp spec) UPPER RESPIRATORY TRACT SWAB Normal [facility] Comment on above: Performed By: #### I TCOVD ####[facility] [address] [place], [place] [phone] SARS-CoV-2 (COVID-19) RNA ADRIEL+probe Ql (Unsp spec) Negative for COVID19 (SARS CoV2) by RT-PCR or equivalent method. Normal Negative for COVID19 (SARS CoV2) by RT-PCR or equivalent method. [facility] Comment on above: Result Comment: This test was developed and its performance characteristics determined by [facility]'s [facility] [place]. This test has been authorized by FDA under an Emergency Use Authorization (EUA). This test has been validated in accordance with the FDA's Guidance Document Policy for Diagnostics Testing in Laboratories Certified to Perform High Complexity Testing under CLIA prior to Emergency use Authorization for Coronavirus Disease 2019 during the Public Health Emergency issued on October 19, 2019. Test performed by [facility], [facility] [place], [address] [place], [place] [address]. Performed By: #### I TCOVD ####[facility] [place] [facility] [place], [place] [phone] Magnesiumon 01-17-2021 Magnesium [Mass/Vol] 2.0 mg/dL Normal 1.7-2.3 [facility] NT Pro BNPon 01-17-2021 PRO B Natr Peptide 394 pg/mL High <125 [facility] Sed Rate Westergrenon 2020 Sed Rate Westergren 124 mm/hr High 0-20 [facility] Comment on above: Performed By: #### W SR ####[id number] [place], [place] [phone] TSHon 01-17-2021 TSH Qn 0.615 m[IU]/L Normal 0.270-4.200 [facility] Troponin Ton 01-17-2021 Troponin T.cardiac [Mass/Vol] 0.023 ug/L Normal 0.000-0.029 [facility] Urinalysis with Microscopico n 01-17-2021 Bacteria Present Critically abnormal 0 [facility] Bilirubin, Urine Negative Normal Negative [facility] pital Cast SEE COMMENT Normal 0 [facility] Comment on above: Result Comment: 0 Clarity (U) Turbid Critically abnormal Clear [facility] Color (U) Yellow Normal Yellow [facility] Glucose Ql (U) Negative Normal Negative [facility] Hemoglobin/Blood,Ur 2+ Critically abnormal Negative [facility] Ketones Ql (U) Negative Normal Negative [facility] Leukest 3+ Critically abnormal Negative [facility] Nitrite Ql (U) Positive Critically abnormal Negative [facility] pH (U) 8.5 [pH] High 5.0-8.0 [facility] Protein, Urine 2+ Critically abnormal Negative [facility] RBC 3-5 Critically abnormal 0-3 [facility] Specific [place], Ur 1.013 Normal 1.005-1.030 [facility] Urobilinogen Qn (U) 0.2 {Madeleine'U}/dL Normal 0.2-1.0 [facility] WBC (U) [#/Vol] /uL Critically abnormal 0-5 [facility] Urine Cultureon 01-17-2021 Bacteria identified Cx Nom [...] F Ertapenem SUSCEPTIBLE <=0.5 F Critically abnormal [facility] Comment on above: Performed By: #### U RCUL ####[facility] [address] [place], [place] [phone] XR CHEST 1V FRONTAL PORTon 0 01-17-2021 [...] exam with no evidence of acute disease. Marble And Granite Polisher: PSCB Transcribe Date/Time: Jan 17 2021 4:40P Dictated by : FLASH WOODS MD This examination was interpreted and the report reviewed and electronically signed by: FLASH WOODS MD on Jan 17 2021 4:41PM EST [id number] Normal [facility] Vital Signs Date Time Vital Sign Value Performing Clinician Facility 03-26-2024 10:48-0400 Body mass index (BMI) [Ratio] 24.41 kg/m2 Carmenza Nolen MD Work Phone: [facility] 03-26-2024 10:48-0400 Body weight 56.7 kg Carmenza Nolen MD Work Phone: [facility] Comment on above: VERBAL 01-12-2024 13:50-0400 Diastolic blood pressure 69 mm[Hg] Taurus Ballard MD Work Phone: [facility] 01-12-2024 13:50-0400 Heart rate 75 /min Taurus Ballard MD Work Phone: [facility] 01-12-2024 13:50-0400 Systolic blood pressure 142 mm[Hg] Taurus Ballard MD Work Phone: [facility] 10-25-2023 15:12-0500 Blood Pressure Location HEIDY ARNOLD [facility] 10-25-2023 15:12-0500 Body temperature 96.8 [degF] HEIDY ARNOLD [facility] 10-25-2023 15:12-0500 Diastolic blood pressure 78 mm[Hg] HEIDY ARNOLD [facility] 10-25-2023 15:12-0500 Heart rate 86 /min HEIDY ARNOLD [facility] 10-25-2023 15:12-0500 Systolic blood pressure 122 mm[Hg] HEIDY ARNOLD [facility] 08-01-2023 15:00-0500 Body height 154.94 cm [facility] 06-08-2023 13:00-0400 Body height 154.94 cm Tondra Mapus Other [facility] Other 06-08-2023 13:00-0400 Body mass index (BMI) [Ratio] 25.37 kg/m2 Tondra Mapus Other [facility] Other 06-08-2023 13:00-0400 Body weight 60.92 kg Tondra Mapus Other [facility] Other 06-08-2023 13:00-0400 Diastolic blood pressure 66 mm[Hg] Tondra Mapus Other [facility] Other 06-08-2023 13:00-0400 Respiratory rate 18 /min Tondra Mapus Other [facility] Other 06-08-2023 13:00-0400 SaO2% (BldA) [Mass fraction] 100 % Tondra Mapus Other [facility] Other 06-08-2023 13:00-0400 Systolic blood pressure 107 mm[Hg] Tondra Mapus Other [facility] Other 05-18-2023 11:00-0400 Body height 154.94 cm Tondra Mapus Other [facility] Other 05-18-2023 11:00-0400 Body mass index (BMI) [Ratio] 24.69 kg/m2 Tondra Mapus Other [facility] Other 05-18-2023 11:00-0400 Body weight 59.29 kg Tondra Mapus Other [facility] Other 05-18-2023 11:00-0400 Diastolic blood pressure 96 mm[Hg] Tondra Mapus Other [facility] Other 05-18-2023 11:00-0400 Respiratory rate 18 /min Tondra Mapus Other [facility] Other 05-18-2023 11:00-0400 SaO2% (BldA) [Mass fraction] 97 % Tondra Mapus Other [facility] Other 05-18-2023 11:00-0400 Systolic blood pressure 161 mm[Hg] Tondra Mapus Other [facility] Other 02-22-2023 08:34-0400 Blood Pressure Location Lisa Lue [facility] 02-22-2023 08:34-0400 Diastolic blood pressure 66 mm[Hg] Lisa Lue [facility] 02-22-2023 08:34-0400 Heart rate 76 /min Lisa Lue [facility] 02-22-2023 08:34-0400 Systolic blood pressure 106 mm[Hg] Lisa Lue [facility] 12-27-2022 16:00-0400 Body height 154.94 cm Eli Mendenhalls Other [facility] Other 12-27-2022 16:00-0400 Body mass index (BMI) [Ratio] 26.11 kg/m2 Azyanet Mendenhalls Other [facility] Other 12-27-2022 16:00-0400 Body temperature 96.5 [degF] Eli Mendenhalls Other [facility] Other 12-27-2022 16:00-0400 Body weight 62.69 kg Eli Mendenhalls Other [facility] Other 12-27-2022 16:00-0400 Diastolic blood pressure 98 mm[Hg] Eli Mendenhalls Other [facility] Other 12-27-2022 16:00-0400 Respiratory rate 18 /min Eli Mendenhalls Other [facility] Other 12-27-2022 16:00-0400 SaO2% (BldA) [Mass fraction] 98 % Eli Mendenhalls Other [facility] Other 12-27-2022 16:00-0400 Systolic blood pressure 151 mm[Hg] Azyanet Zas Other [facility] Other 09-21-2022 08:42-0500 Blood Pressure Location Lisa Lue [facility] 09-21-2022 08:42-0500 Diastolic blood pressure 67 mm[Hg] Lisa Lue [facility] 09-21-2022 08:42-0500 Heart rate 74 /min Lisa Lue [facility] 09-21-2022 08:42-0500 Systolic blood pressure 103 mm[Hg] Lisa Lue [facility] Encounters Encounter Date Encounter Type Care Provider Facility Start: 04-24-2024 End: 04-24-2024 ambulatory SWETA LI [facility] Start: 04-16-2024 End: 04-16-2024 ambulatory AGUSTO OLMSTEAD Not Available Start: 04-15-2024 End: 04-15-2024 ambulatory Chioma Durán [facility] Start: 04-09-2024 End: 04-09-2024 ambulatory CARMENZA NOLEN Facility:[facility] Start: 04-09-2024 End: 04-09-2024 Patient encounter [...] Start: 03-29-2024 End: 03-29-2024 ambulatory TAURUS BALLARD Facility:[facility] Start: 03-27-2024 ambulatory Nuria garrett APRN.CNP Work Phone: Pulmonary Medicine Start: 03-26-2024 End: 03-26-2024 ambulatory CARMENZA NOLEN Facility:[facility] Start: 03-26-2024 End: 03-26-2024 Patient encounter procedure Carmenza Nolen MD Work Phone: Urology Comment on above: Retention of urine ( Primary Dx); Screening for genitourinary condition; Type 2 diabetes mellitus with hyperglycemia, with long-term current use of insulin (HCC); BURKE (stress urinary incontinence, female) Start: 03-16-2024 End: 03-16-2024 ambulatory JYOTHI Orellana CAT [facility] Start: 03-15-2024 End: 03-15-2024 ambulatory ZACKERY HUGHESAN [facility] Start: 02-26-2024 Telephone encounter Flavio Coon RN [facility] Start: 02-12-2024 Telephone encounter Vonnie Wilder RN Ur ology Comment on above: Results - Ct Start: 02-01-2024 End: 02-01-[address] Facility:[facility] Start: 01-24-2024 End: 01-24-2024 ambulatory [facility] Start: 01-17-2024 End: 01-17-2024 ambulatory AGUSTO AICHHOLZ Not Available Start: 01-12-2024 End: 01-12-2024 Patient encounter procedure Taurus Ballard MD Work Phone: Urology Comment on above: Other hydronephrosis (Primary Dx); Screening for genitourinary condition Start: 01-12-2024 End: 01-12-2024 [facility] Start: 12-21-2023 End: 12-21-2023 ambulatory AGUSTO AICHHOLZ Not Available Start: 12-13-2023 End: 12-13-2023 ambulatory [facility] Start: 11-16-2023 End: 11-16-2023 ambulatory AGUSTO AICHHOLZ Not Available Start: 11-06-2023 Refill Asia Barreto RN [facility] Comment on above: 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; Complex regional pain syndrome type 1 of right upper extremity Start: 11-02-2023 ambulatory PA-C HEIDY Noel acility:[facility] Dailey Start: 10-25-2023 End: 10-26-2023 ambulatory PA-C HEIDY ARNOLD Facility:[facility] patel Start: 10-25-2023 End: 10-25-2023 Patient encounter procedure HEIDY ARNOLD [facility] Start: 10-14-2023 End: 10-14-2023 ambulatory [facility] Start: 10-13-2023 End: 10-13-2023 ambulatory [facility] Start: 10-11-2023 End: 10-11-2023 ambulatory AGUSTO MARIBEL Not Available Start: 10-10-2023 Refill Agusto Gray SUBSEA ENGINEER [facility] Comment on above: 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; Complex regional pain syndrome type 1 of right upper extremity Start: 09-29-2023 End: 09-29-2023 ambulatory [facility] Start: 09-29-2023 End: 09-29-2023 ambulatory Drew Esqueda Research Coordinator [facility] Provider Adult Comment on above: CHRISTOPHER IRB# [phone] Start: 09-28-2023 E-mail encounter fro m caregiver Drew Esqueda Research Coordinator [facility] Start: 09-27-2023 Telephone encounter Drew bourne Research Coordinator [facility] Provider Adult Comment on above: Research F/U Start: 09-26-2023 Telephone encounter Drew bourne Research Coordinator [facility] Provider Adult Comment on above: Research F/U Start: 09-12-2023 End: 09-13-2023 ambulatory PA-C HEIDY ARNOLD Facility:[facility]N Simpson ujennifer Start: 09-12-2023 End: 09-12-2023 Patient encounter procedure HEIDY ARNOLD [facility] Start: 09-07-2023 Refill Yesenia Burnett RN [facility] Comment on above: 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 Start: 09-05-2023 End: 09-05-2023 ambulatory Tondra Mapus Other [facility] Other Start: 09-05-2023 Telephone encounter Tondra Mapus [facility] Start: 08-09-2023 End: 08-09-2023 ambulatory [facility] Start: 08-09-2023 End: 08-09-2023 ambulatory [facility] Start: 08-01-2023 End: 08-01-2023 Patient encounter procedure [facility] Ne[facility] Michael Work Phone: Start: 07-18-2023 End: 07-19-2023 ambulatory PROMISE ARNOLD Facility: [place] Start: 07-05-2023 End: 07-05-2023 Orders Only Taurus Ballard MD Work Phone: Urology Comment on above: Kidney cyst, acquire d (Primary Dx) Start: 07-05-2023 Telephone encounter Eli PAYNE [facility] Start: 06-28-2023 End: 06-29-2023 ambulatory Lisa Porras Facility:[facility] Start: 06-28-2023 End: 06-28-2023 Patient encounter procedure Lisa Porras [facility] Start: 06-26-2023 End: 06-26-2023 ambulatory Tondra Mapus Other [facility] Other Start: 06-26-2023 Telephone encounter Tona Mapus [facility] Start: 06-23-2023 Telephone encounter Hiedy harris RN Urology Comment on above: Surgical Followup Start: 06-22-2023 End: 06-23-2023 ambulatory TAURUS BALLARD Facility:[facility] Start: 06-19-2023 ambulatory Taurus newton MD Work Phone: Urology Comment on above: Aislinn alvarez procedure Start: 06-15-2023 Telephone encounter Vonnie seamanogteresa Comment on above: Pre-Op Teaching Start: 06-12-2023 End: 06-12-2023 ambulatory Tondra Mapus [facility] Other Start: 06-12-2023 Telephone encounter Tondra Mapus [facility] Start: 06-08-2023 End: 06-08-2023 Lab Drop off HEIDY Jennifer ARNOLD [facility] Start: 06-08-2023 End: 06-08-2023 Patient encounter procedure AGUSTO OLMSTEAD [facility] Start: 06-08-2023 (PUMP/CGM) Pump / Sensor Tondra Mapus [facility] Start: 06-08-2023 End: 06-09-2023 ambulatory Sumi [facility] Other Start: 06-06-2023 Encounter for other preprocedural examination TAURUS BALLARD [facility] Start: 06-06-2023 End: 06-06-2023 ambulatory TAURUS BALLARD Facility:[facility] Start: 05-22-2023 End: 05-23-2023 ambulatory Lisa Porras Facility:[facility] Start: 05-22-2023 End: 05-22-2023 Patient encounter procedure Lisa Porras [facility] Start: 05-18-2023 End: 05-18-2023 ambulatory Tondra Mapus Other [facility] Other Start: 05-18-2023 FQ visit new patient Sara Augustine [facility] Start: 05-18-2023 Telephone encounter Taurus rees MD Work Phone: Urology Comment on above: Follow Up Start: 05-17-2023 End: 05-17-2023 ambulatory TAURUS BALLARD Facility:[facility] Start: 05-11-2023 End: 2023 ambulatory PA-C HEIDY ARNOLD Facility:[facility] Start: 05-11-2023 End: 05-11-2023 Lab Drop off HEIDY ARNOLD [facility] Start: 05-03-2023 End: 05-04-2023 ambulatory Lisa Sharife Facility:[facility] Start: 04-18-2023 End: 04-19-2023 ambulatory PA-C HEIDY ARNOLD Facility:[facility] Start: 04-18-2023 End: 04-19-2023 ambulatory Lisa MIrina Lue Facility:[facility] Start: 04-18-2023 End: 04-18-2023 Lab Drop off HEIDY ARNOLD [facility] Start: 04-18-2023 End: 04-18-2023 Patient encounter procedure Lisa Porras [facility] Start: 04-04-2023 End: 04-04-2023 ambulatory Brigette Wesley Other [facility] Other Start: 04-04-2023 Telephone encounter Brigette Wesley [facility] Start: 02-22-2023 End: 02-23-2023 ambulatory Lisa M. Lue Facility:[facility] Start: 02-22-2023 End: 02-22-2023 Patient encounter procedure Lisa Porras [facility] Start: 01-09-2023 End: 01-09-2023 ambulatory Azyanet Mendenhalls Other [facility] Other Start: 01-09-2023 Telephone encounter Eli Mendenhalls [facility] Start: 01-03-2023 End: 01-04-2023 ambulatory CARTOON ARTIST AGUSTO AICHHOLZ Facility:[facility] Start: 12-28-2022 End: 12-29-2022 ambulatory CARTOON ARTIST AGUSTO AICHHOLZ Facility:[facility] Start: 12-27-2022 End: 12-27-2022 ambulatory Azyanet Mendenhalls Other [facility] Other Start: 12-27-2022 Office outpatient ne w 30 minutes Azyanet Mendenhalls [facility] Start: 12-15-2022 End: 12-16-2022 ambulatory CARTOON ARTIST AGUSTO AICHHOLZ Facility:[facility] Start: 12-14-2022 End: 12-15-2022 ambulatory PETER D WILLYANDER Facility:[facility] Start: 10-27-2022 End: 10-28-2022 ambulatory CARTOON ARTIST AGUSTO AICHHOLZ Facility:[facility] Start: 10-24-2022 End: 10-25-2022 ambulatory CARTOON ARTIST AGUSTO AICHHOLZ Facility:[facility] Start: 10-12-2022 End: 10-13-2022 ambulatory CARTOON ARTIST AGUSTO AICHHOLZ Facility:[facility] Start: 10-05-2022 End: 10-06-2022 ambulatory CARTOON ARTIST AGUSTO AICHHOLZ Facility:[facility] Start: 09-29-2022 End: 09-30-2022 ambulatory CARTOON ARTIST AGUSTO AICHHOLZ Facility:[facility] Start: 09-21-2022 End: 09-22-2022 ambulatory PETER D HIGHLANDER Facility:[facility] Start: 09-21-2022 End: 09-21-2022 Patient encounter procedure Lisa Porras [facility] Start: 09-15-2022 End: 09-16-2022 ambulatory CARTOON ARTIST AGUSTO AICHHOLZ Facility:[facility] Start: 09-13-2022 End: 09-13-2022 Patient encounter procedure HEIDY ARNOLD [facility] Start: 09-08-2022 End: 09-09-2022 ambulatory CARTOON ARTIST AGUSTO AICHHOLZ Facility:[facility] Start: 09-02-2022 End: 09-03-2022 ambulatory PETER D HIGHLANDER Facility:[facility] Start: 08-26-2022 End: 08-27-2022 [facility] Start: 08-09-2022 End: 08-10-2022 [facility] Start: 08-05-2022 End: 08-06-2022 [facility] Start: 08-04-2022 End: 08-05-2022 ambulatory PETER D HIGHLANDER Facility:[facility] Start: 08-03-2022 End: 08-04-2022 ambulatory CARTOON ARTIST AGUSTO AICHHOLZ Facility:[facility] Start: 08-02-2022 End: 08-03-2022 ambulatory CARTOON ARTIST AGUSTO AICHHOLZ Facility:[facility] Start: 08-01-2022 End: 08-02-2022 ambulatory CARTOON ARTIST AGUSTO AICHHOLZ Facility:[facility] Start: 07-19-2022 End: 07-20-2022 ambulatory CARTOON ARTIST AGUSTO AICHHOLZ Facility:[facility] Start: 07-08-2022 End: 07-09-2022 ambulatory CARTOON ARTIST AGUSTO AICHHOLZ Facility:[facility] Start: 07-06-2022 End: 07-07-2022 ambulatory CARTOON ARTIST AGUSTO AICHHOLZ Facility:[facility] Start: 07-05-2022 End: 07-06-2022 ambulatory PETER D HIGHLANDER Facility:[facility] Start: 06-28-2022 End: 06-29-2022 [facility] Start: 06-24-2022 End: 06-25-2022 ambulatory RAMON D [facility] Facility:[facility] Start: 06-11-2022 End: 06-16-2022 Evaluation [...] Comment: Speci men Type: BLOOD SPECIMENOrdering Facility: [facility] Address: [address] [place] [address] Performed By: #### T [id number] ####[facility] [id number] [place] [address] [place] Start: 05-22-2023 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 Lisa Porras Start: 06-16-2022 Microscopic examinat ion of blood, culture KIARA OLMSTEAD Comment on above: Performed By: #### B LDCX1 ####[facility] [id number] [place] [id number] Ricardo Aj Start: 06-13-2022 Detachment at Left F oot, Partial 1st Ray, Open Approach KIARA OLMSTEAD Start: 06-13-2022 Microscopic examinat ion of blood, culture KIARA OLMSTEAD Comment on above: Performed By: #### B LDCX1 ####[facility] [address] [place], [place] [address]ThIrina Rocha Start: 06-11-2022 Detachment at Left 1 [...] 04-28-2026 Screening for malignant neoplasm of colon [facility] Start: 01-31-2025 Creatinine measurement Serum Creatinine [facility] Start: 10-13-2024 Tobacco Screening Tobacco Screening [facility] Start: 09-29-2024 Tobacco Screening Tobacco Screening [facility] Start: 09-03-2024 Complete blood count Hemoglobin/Hematocrit [facility] Start: 09-03-2024 Creatinine measurement Serum Creatinine [facility] Start: 08-09-2024 Adult BMI Screening Adult BMI Screening [facility] Start: 08-09-2024 Tobacco Screening Tobacco Screening [facility] Start: 06-23-2024 Hemoglobin/Hematocrit Hemoglobin/Hematocrit [facility] Start: 06-23-2024 Serum Creatinine Serum Creatinine [facility] Start: 06-06-2024 Hemoglobin/Hematocrit Hemoglobin/Hematocrit [facility] Start: 06-06-2024 Serum Creatinine Serum Creatinine [facility] Start: 05-01-2024 End: 05-01-2024 Patient encounter procedure 05/01/2024 10:00 AM EDT Office Visit Urology [address] [address] Mirna Sunshine MD [address] [place], [place] [id number] discuss bladder augment per Dr. Nolen Urology Comment on above: discuss bladder augment per Dr. Nolne Start: 04-21-2024 Influenza vaccination [facility] Start: 04-09-2024 End: 04-09-2024 Follow-up encounter 04/09/2024 9:30 AM EDT [facility] [id number] [place] [id number] Carmenza Nolen MD [address] [place] [address] 1 week follow up per dr. nolen Urology Comment on above: 1 week follow up per dr. nolen Start: 04-04-2024 Hepatitis B screening Urine Albumin:Creatinine Ratio [facility] Start: 03-29-2024 End: 03-29-2024 Nursing evaluation of patient and report 03/29/2024 3:00 PM EDT Nurse Visit Urology [address] [address] [facility] [address] [place] [id number] [R33.9] Retention of urine Urology Comment on above: [R33.9] Retention of urine Start: 03-26-2024 End: 03-26-2024 Patient encounter procedure 03/26/2024 11:00 AM EDT Office Visit Urology [address] [place] [address] Carmenza Nolen MD [address] [place] [address] Ballard Urology Comment on above: Follow up per Dr. 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 [facility] Comment on above: Continuous leakage of Urine Start: 01-22-2024 DIABETES SCREEN DIABETES SCREEN [facility] Start: 01-19-2024 End: 04-19-2024 CREATININE BLD CREATININE BLD Lab Routine Other hydronephrosis Expected: 01/19/2024 (Approximate), Expires: 04/19/2024 [facility] Comment on above: Expected: 01/19/2024 (Approximate), Expi res: 04/19/2024 Start: 01-19-2024 End: 02-10-2025 CT Kidney WO and W contrast IV CT UROGRAM WO/W IVCON Radiology Routine Other hydronephrosis Expected: 01/19/2024 (Approximate), Expires: 02/10/2025 [facility] Work Phone: Comment on above: Expected: 01/19/2024 (Approximate), Expi res: 02/10/2025 Start: 11-22-2023 End: 11-22-2023 Patient encounter procedure 11/22/2023 11:15 AM EDT Office Visit [facility] [address] [place] [phone] Sweta Li, PA-C [address], [address] [place] [id number] [facility] Start: 10-25-2023 End: 10-25-2023 Patient encounter procedure 10/25/2023 12:45 PM EST Office Visit [facility] [address] [place] [phone] Sweta Li, PA-C [address], [address] [place], [place] [phone] [facility] Start: 10-13-2023 End: 10-13-2023 Njx anes stellate ganglion crv sympathetic INJECTION BLOCK NERVE STELLATE GANGLION NECK Complex regional pain syndrome type 1 of right upper extremity 10/13/2023 12:44 PM EST [facility] Start: 10-13-2023 End: 10-13-2023 Patient encounter procedure 10/13/2023 9:55 AM EST Appointment [facility] [address] [place] [id number] Zackery Pedro MD [address] [place] [address] [facility] Start: 10-05-2023 End: 01-04-2024 Basic metabolic 2000 panel - Serum or Plasma BASIC METABOLIC PNL Lab Routine Kidney cyst, acquired Expected: 10/05/2023 (Approximate), Expires: 01/04/2024 [facility] Work Phone: Comment on above: Expected: 10/05/2023 (Approximate), Expi res: 01/04/2024 Start: 10-05-2023 End: 08-03-2024 US KIDNEY/BLADDER US KIDNEY/BLADDER Radiology Routine Kidney cyst, acquired Expected: 10/05/2023 (Approximate), Expires: 08/03/2024 [facility] Work Phone: Comment on above: Expected: 10/05/2023 (Approximate), Expi res: 08/03/2024 Start: 09-06-2023 Hemoglobin A1c measurement HbA1C [facility] Start: 09-06-2023 Hemoglobin A1c/Hemoglobin.total in Blood HbA1C [facility] Start: 08-21-2023 Advance Directive Discussion Advance Directive Discussion [facility] Start: 08-21-2023 Behavioral Health Screening Behavioral Health Screening [facility] Start: 08-21-2023 Depression Assessment Depression Assessment [facility] Start: 2023 Advance Directive Discussion Advance Directive Discussion [facility] Start: 2023 Bone Density Screening Bone Density Screening [facility] Start: 2023 Fall Risk Screening Fall Risk Screening [facility] Start: 2023 Screening for osteoporosis Bone Density Screening [facility] Start: 04-21-2023 Covid-19 Vaccine () Covid-19 Vaccine () [facility] Start: 04-21-2023 Covid-19 Vaccine ( season) Covid-19 Vaccine ( season) [facility] Start: 04-21-2023 Influenza vaccination [facility] Start: 08-21-2022 Depression Assessment Depression Assessment [facility] Start: 04-21-2021 Influenza vaccination INFLUENZA (Season Ended) [facility] Start: 2018 Hepatitis B Vaccine (1 of 3 - Risk 3-dose series) Hepatitis B Vaccine (1 of 3 - Risk 3-dose series) [facility] Start: 2018 RSV Vaccine (1 - 1-dose 60+ series) RSV Vaccine (1 - 1-dose 60+ series) [facility] Start: 2008 Administration of varicella zoster vaccine Zoster (Shingles) Vaccine (1 of 2) [facility] Start: 2008 Screening for malignant neoplasm of colon [facility] Start: 2008 SHINGRIX VACCINE (1 of 2) SHINGRIX VACCINE (1 of 2) [facility] Start: 2003 Cologuard (FIT-DNA) Cologuard (FIT-DNA) [facility] Start: 2003 Colonoscopy Colonoscopy [facility] Start: 2003 Colorectal Cancer Screening Colorectal Cancer Screening [facility] Start: [address] Colonography [facility] Start: 2003 Fecal Occult Blood Fecal Occult Blood [facility] Start: 2003 LIPID SCREEN LIPID SCREEN [facility] Start: 2003 Screening for malignant neoplasm of colon [facility] Start: 2003 Sigmoidoscopy Sigmoidoscopy [facility] Start: 1998 Mammography [facility] Start: 1998 Screening for malignant neoplasm of breast Mammogram Screening [facility] Start: 1988 HPV TESTING HPV TESTING [facility] Start: 1979 PAP TESTING PAP TESTING [facility] Start: 1977 DTaP,Tdap and Td Vaccines (1 - Tdap) DTaP,Tdap and Td Vaccines (1 - Tdap) [facility] Start: 1977 Urine microalbumin profile [facility] Start: 1976 Annual PCP Team Chronic Disease Visit Annual PCP Team Chronic Disease Visit [facility] Start: 1976 Anxiety Screening Anxiety Screening [facility] Start: 1976 BP Controlled (<130/80) BP Controlled (<130/80) [facility] Start: 1976 Depression Screening Depression Screening [facility] Start: 1976 Diabetic foot examination Diabetic Foot Exam [facility] Start: 1976 Hepatitis B surface antibody level LDL Cholesterol [facility] Start: 1976 HEPATITIS C SCREENING HEPATITIS C SCREENING [facility] Start: 1976 Hepatitis C screening Hepatitis C Screening [facility] Start: 1976 HIV SCREENING HIV SCREENING [facility] Start: 1976 HIV screening HIV Screening [facility] Start: 1976 Spirometry Spirometry [facility] Start: 1970 Adult depression screening assessment DEPRESSION SCREENING [facility] Start: 1970 COVID-19 VACCINE (1) COVID-19 VACCINE (1) [facility] Start: 1968 3 comp foot exam completed Diabetic Foot Exam [facility] Start: 1968 Diabetic foot examination Diabetic Foot Exam [facility] Start: 1968 Glaucoma screening Dilated Retinal Exam [facility] Start: 1968 Hepatitis B screening Urine Albumin:Creatinine Ratio [facility] Start: 1968 Hepatitis C antibody, confirmatory test Dilated Retinal Exam [facility] Start: 1964 Pneumococcal Vaccine: 65+ (1 - PCV) Pneumococcal Vaccine: 65+ (1 - PCV) [facility] Start: 1964 Pneumococcal Vaccine: 65+ (1 of 2 - PCV) Pneumococcal Vaccine: 65+ (1 of 2 - PCV) [facility] Start: 1958 Glaucoma screening Diabetic Ophthalmology Exam [facility] Start: 1958 Urine screening for protein Urine Microalbumin [facility] FLUROURODYNAMICS WITH EMG FLUROU RODYNAMICS WITH EMG Procedures Routine Retention of urine BURKE (stress urinary incontinence, female) Ordered: 03/26/2024 [facility] Work Phone: Comment on above: Ordered: 03/26/2024 Njx anes stellate ganglion crv sympathetic INJECTION BLOCK NERVE STELLATE GANGLION NECK Complex regional pain syndrome type 1 of right upper extremity [place] [facility] Njx anes stellate ganglion crv sympathetic INJECTION BLOCK NERVE STELLATE GANGLION NECK Complex regional pain syndrome type 1 of right upper extremity [facility] Immunizations Immunization Date Immunization Notes Care Provider Lukas pacheco 04-02-2021 SARS-CoV-2 (COVID-19 ) mRNA-1273 vaccine HEIDY ARNOLD [facility] 12-07-2020 SARS-CoV-2 (COVID-19 ) mRNA-1273 vaccine HEIDY ARNOLD [facility] 06-03-2016 influenza virus vaccine, unspecified formulation HEIDY ARNOLD [facility] 06-03-2016 influenza, seasonal, injectable, preservative free Drew Esqueda Research Coordinator [facility] Payers Date Payer Category Payer Private Health Insurance [id number] 2023 Self-pay 2022 Medicare [id number] 2022 Medicare [id number] 2006 Medicare MEDICARE MEDICAR E A [id number] 2006-Present [place] Medicare [id number] .[id number] 2003 Unknown [id number] 1959 Medicare [id number] 2.16.840.1.440829.19 1959 Unknown [id number] 1959 Unknown [id number] 1958 Unknown [id number] 2.16.840.1.447735.3.579.2 .593 1958 Unknown [id number] 2.16.840.1.481218.3.579.2 .593 1958 Unknown [id number] 2.16.840.1.620848.3.579.2 .593 1958 Unknown [id number] 2.16.840.1.809084.3.579.2 .593 1958 Unknown [id number] 2.16.840.1.539688.3.579.2 .593 1958 Unknown [id number] 2.16.840.1.426442.3.579.2 .593 1958 Unknown [id number] 2.16.840.1.257223.3.579.2 .593 1958 Unknown [id number] 2.16.840.1.753172.3.579.2 .593 1958 Unknown [id number] 2.16.840.1.557223.3.579.2 .593 1958 Unknown [id number] 2.16.840.1.750731.3.579.2 .593 1958 Unknown [id number] 2.16.840.1.664732.3.579.2 .593 1958 Unknown [id number] 2.16.840.1.696075.3.579.2 .593 1958 Unknown [id number] 2.16.840.1.028506.3.579.2 .593 1958 Unknown [id number] 2.16.840.1.477024.3.579.2 .593 1958 Unknown [id number] 2.16.840.1.845096.3.579.2 .593 1958 Unknown [id number] 2.16.840.1.345862.3.579.2 .593 1958 Unknown [id number] 2.16.840.1.531383.3.579.2 .593 1958 Unknown [id number] 2.16.840.1.237852.3.579.2 .593 1958 Unknown [id number] 2.16.840.1.555509.3.579.2 .593 1958 Unknown [id number] 2.16.840.1.848992.3.579.2 .593 1958 Unknown [id number] 2.16.840.1.557647.3.579.2 .593 1958 Unknown [id number] 2.16.840.1.345251.3.579.2 .593 1958 Unknown [id number] 2.16.840.1.925761.3.579.2 .593 1958 Unknown [id number] 2.16.840.1.034052.3.579.2 .593 1958 Unknown [id number] 2.16.840.1.604449.3.579.2 .593 1958 Unknown [id number] 2.16.840.1.716205.3.579.2 .593 1958 Unknown [id number] 2.16.840.1.353282.3.579.2 .593 1958 Unknown [id number] 2.16.840.1.168000.3.579.2 .593 1958 Unknown [id number] 2.16.840.1.730574.3.579.2 .593 1958 Unknown [id number] 2.16.840.1.416989.3.579.2 .593 1958 Unknown [id number] 2.16.840.1.931294.3.579.2 .593 1958 Unknown [id number] 2.16.840.1.715646.3.579.2 .727 1958 Unknown [id number] 2.16.840.1.890393.3.579.2 .727 1958 Unknown [id number] 2.16.840.1.946401.3.579.2 .72 1958 Unknown [id number] 2.16.840.1.206157.3.579.2 .1958 Unknown [id number] 2.16.840.1.984620.3.579.2 .1958 Unknown [id number] 2.16.840.1.357945.3.579.2 .1958 Unknown [id number] 2.16.840.1.166123.3.579.2 .1958 Unknown [id number] 2.16.840.1.237947.3.579.2 .1958 Unknown [id number] 2.16.840.1.545087.3.579.2 .1958 Unknown [id number] 2.16.840.1.527430.3.579.2 .1958 Unknown [id number] 2.16.840.1.104550.3.579.2 .1958 Unknown [id number] 2.16.840.1.345352.3.579.2 .1958 Unknown [id number] 2.16.840.1.748234.3.579.2 .1958 Unknown [id number] 2.16.840.1.866752.3.579.2 .1958 Unknown [id number] 2.16.840.1.918200.3.579.2 .1958 Unknown [id number] 2.16.840.1.971242.3.579.2 .1258 1958 Unknown [id number] 2.16.840.1.774343.3.579.2 .1258 1958 Unknown [id number] 2.16.840.1.304998.3.579.2 .1259 1958 Unknown [id number] 2.16.840.1.447341.3.579.2 .1258 1958 Unknown [id number] 2.16.840.1.454358.3.579.2 .9 1958 Unknown [id number] 2.16.840.1.854491.3.579.2 .1285 1958 Unknown [id number] 2.16.840.1.473309.3.579.2 .1285 1958 Unknown [id number] 2.16.840.1.500497.3.579.2 .1285 1958 Unknown [id number] 2.16.840.1.683401.3.579.2 .1285 1958 Unknown [id number] 2.16.840.1.101538.3.579.2 .1285 1958 Unknown [id number] 2.16.840.1.555814.3.579.2 .1285 1958 Unknown [id number] 2.16.840.1.405594.3.579.2 .1285 1958 Unknown [id number] 2.16.840.1.393531.3.579.2 .1285 1958 Unknown [id number] 2.16.840.1.818957.3.579.2 .1285 1958 Unknown [id number] 2.16.840.1.431196.3.579.2 .1285 1958 Unknown [id number] 2.16.840.1.552875.3.579.2 .1285 1958 Unknown [id number] 2.16.840.1.210656.3.579.2 .1285 1958 Unknown [id number] 2.16.840.1.550735.3.579.2 .1286 1958 Unknown [id number] 2.16.840.1.464066.3.579.2 .1286 1958 Unknown [id number] 2.16.840.1.120259.3.579.2 .1286 Medicare [id number] Unknown [facility] [id number] Unknown [id number] 2.16.840.1.211495.3.579.2 .531 Social History Date Type Detail Facility Start: 01-17-2021 End: 05-17-2023 Tobacco smoking status NHIS Never smoker [facility] Start: 01-17-2021 End: 05-17-2023 Tobacco use and exposure Never used [facility] Start: 01-17-2021 End: 04-09-2024 Alcohol intake Current drinker of alcohol (finding) [facility] Start: 01-17-2021 History SDOH Alcohol Frequency 1 [facility] Start: 01-17-2021 [facility] Start: 1960 Sex Assigned At Not on file [facility] Exposure to SARS-CoV -2 (event) Not sure [facility] Tobacco smoking status Never [facility] Start: 05-17-2023 End: 06-06-2023 Sex Assigned At Female [facility] Start: 05-17-2023 End: 06-06-2023 History of Social function [facility] Start: 06-06-2023 Alcohol Comment rarely--holida y or special occ [facility] Start: 08-09-2023 End: 10-13-2023 Alcohol intake Current non-drinker of alcohol (finding) [facility] Are you now , , , , never or living with a partner? [facility] How hard is it for y ou to pay for the very basics like food, housing, medical care, and heating Not very hard [facility] (I/We) worried liss er (my/our) food would run out before (I/we) got money to buy more. DK or Refused [facility] Start: 1960 Sex Assigned At Female F [facility] Functional Status Date Assessment Result Facility 10-25-2023 Functional Status N/A [facility] 05-22-2023 Functional Status N/A [facility] 05-11-2023 Functional Status [facility] 02-22-2023 Functional Status N/A [facility] 09-21-2022 Functional Status N/A [facility] 09-13-2022 Functional Status N/A [facility] Clinical Notes 01-17-2021 to 04-15-2024 Chioma Durán - 04/15/2024 7:28 AM Carmenza Maradiaga MD - 04/09/2024 9:33 AM Chioma Clements - 04/08/2024 9:38 AM Lorie Blanchard RN - 03/29/2024 1:21 PM EDTPatient Instructions Note Date & Type Note Facility 04-15-2024 Note HNO ID: [id number] Author: ?, ?, ? Service: ? Author Type: ? Type: Progress Notes Filed: 04/15/2024 07:29 Note Text: Incidental Lung Nodule Enrollment Outreach attempt: 3rd Attempt Outreach status: Complete Enrolled in Lung Nodule program: No Declined reason: Other Lung Nodule Program Location: [place] [facility] letter attempts, no response. Discharge letter sent. [facility] 04-15-2024 History of Presen t illness Narrative Incidental Lung Nodule Enrollment Outreach attempt: 3rd Attempt Outreach status: Complete Enrolled in Lung Nodule program: No Declined reason: Other Lung Nodule Program Location: [place] Two letter attempts, no response. Discharge letter sent. documented in this encounter [facility] 04-15-2024 Note Patient Outreach (PU LMMN) LIAMAISLINN PAEZ ([id number]) 1960 F Date Time Provider Department 04/15/24 CHIOMA DURÁN During your visit today, we recorded the following information about you: Chioma Durán 04/15/2024 7:29 AM Signed Incidental Lung Nodule Enrollment Outreach attempt: 3rd Attempt Outreach status: Complete Enrolled in Lung Nodule program: No Declined reason: Other Lung Nodule Program Location: [place] Two letter attempts, no response. Discharge letter [...] Text Encounter Status:Closed by DURÁNCHIOMA on 04/15/24 [facility] 04-09-2024 Note HNO ID: [id number] Author: CARMENZA NOLEN MD Service: ? Author [...] bladder with poor compliance and BURKE at [facility] of 100ml. Bladder remodeling without VUR. Valsalva [...] visit. Either the patient or their legal community health representative has been informed of the risks and benefits of -- and alternatives to -- treatment through a remote evaluation and consents to proceed with the evaluation remotely. [facility] 04-09-2024 History of Presen t illness Narrative [...] bladder with poor compliance and BURKE at [facility] of 100ml. Bladder remodeling without VUR. Valsalva [...] visit. Either the patient or their legal community health representative has been informed of the risks and benefits of -- and alternatives to -- treatment through a remote evaluation and consents to proceed with the evaluation remotely. documented in this encounter [facility] 04-08-2024 Note HNO ID: [id number] Author: ?, ?, ? Service: ? Author Type: ? Type: Progress Notes Filed: 04/08/2024 09:39 Note Text: Incidental Lung Nodule Enrollment Outreach attempt: 2nd Attempt Outreach status: Complete Enrolled in Lung Nodule program: Referred Lung Nodule outreach: Needs outreach Lung Nodule Program Location: [place] Two letter attempts [facility] 04-08-2024 History of Presen t illness Narrative Incidental Lung Nodule Enrollment Outreach attempt: 2nd Attempt Outreach status: Complete Enrolled in Lung Nodule program: Referred Lung Nodule outreach: Needs outreach Lung Nodule Program Location: [facility] letter attempts documented in this encounter [facility] 04-08-2024 Note Patient Outreach (PU LMMN) AISLINN WHEELER ([id number]) 1960 F Date Time Provider Department 04/08/24 CHIOMA DURÁN During your visit today, we recorded the following information about you: Chioma Durán 04/08/2024 9:39 AM Signed Incidental Lung Nodule Enrollment Outreach attempt: 2nd Attempt Outreach status: Complete Enrolled in Lung Nodule program: Referred Lung Nodule outreach: Needs outreach Lung Nodule Program Location: [place] Two letter attempts Allergies As of Date: 04/08/2024 Noted Allergy Reaction LATEX 02/05/2020 2 - Rash Comments: Added based on information entered during case entry, please review and add reactions, type, and severity as needed Date Reviewed: 03/29/2024 Reviewed by: Lorie Burrows, REY - Fully Assessed Prescriptions as of 04/08/2024 [...] Encounter Status:Closed by CHIOMA DURÁN on 04/08/24 [facility] 04-02-2024 Note HNO ID: [id number] Author: CARMENZA NOLEN MD Service: ? Author Type: Physician Type: Progress Notes Filed: 04/02/2024 11:52 Note Text: [facility] [...] bladder with poor compliance and BURKE at [facility] of 100ml. Bladder remodeling without VUR. Valsalva voiding with atonic detrusor. Will refer to consider bladder augmentation. 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 The bony and soft tissue structures are within normal. 147 ccs contrast were used to fill the bladder. The bladder outline is irregular/trabeculated and abnormal shaped appearing. There is no ureteral reflux. During the voiding phase there is abnormal bladder neck opening and urethra is not visualized. Bladder emptying is not visualized Read by - Carmenza Nolen MD [facility] 03-29-2024 Nurse Note [facility] LAB [...] allergy: No Females- Is patient : No Spring Salvage Worker offered:Patient declines B/O UA: Yes, Negative for [...] Pt states an understanding of instructions given. [facility] 03-29-2024 Nurse Note [facility] [...] allergy: No Females- Is patient : No Spring Salvage Worker offered:Patient declines B/O UA: Yes, Negative for [...] of instructions given. documented in this encounter [facility] 03-27-2024 Note HNO ID: [id number] Author: NURIA READ APRN.CARTOON ARTIST Service: ? Author Type: Nurse Practitioner Type: Progress Notes Filed: 03/27/2024 14:36 Note Text: Incidental Lung Nodule Enrollment Outreach attempt: 1st Attempt Outreach status: Complete Enrolled in Lung Nodule program: Referred Lung Nodule outreach: Needs outreach Lung Nodule Program Location: [facility] 03-27-2024 History of Presen t illness Narrative Incidental Lung Nodule Enrollment Outreach attempt: 1st Attempt Outreach status: Complete Enrolled in Lung Nodule program: Referred Lung Nodule outreach: Needs outreach Lung Nodule Program Location: [facility] documented in this encounter [facility] 03-27-2024 Note Patient Outreach (PM M211) AISLINN WHEELER ([id number]) 1960 F Date Time Provider Department 03/27/24 NURIA READ [id number] During your visit today, we recorded the following information about you: Nuria Read APRN.CNP 03/27/2024 2:36 PM Signed Incidental Lung Nodule Enrollment Outreach attempt: 1st Attempt Outreach status: Complete Enrolled in Lung Nodule program: Referred Lung Nodule outreach: Needs outreach Lung Nodule Program Location: [facility] Allergies As of Date: [...] Encounter Status:Closed by NURIA READ on 03/27/24 [facility] 03-26-2024 Instructions Carmenza Nolen MD - 03/26/2024 11:31 AM EDT Images from the original note were not included. INFORMATION ON URODYNAMICS (BLADDER FUNCTION TEST) Getting Ready for the Test You do not have to fast before the test. Begin to drink 24-32 ounces of fluid (water, cranberry juice, milk, herbal tea) 90 minutes prior to the test so you arrive at the [facility] with the urge to empty your bladder. [...] your bladder when you arrive at the [facility]. Speak with a nurse if you feel you must empty your bladder. If you are taking antibiotics for a urinary tract infection (UTI) or bladder infection, notify your physician's office immediately. We may reschedule your bladder test. Bring a list of all prescribed and [id number] medications you are taking. If you should need assistance due to a language barrier or medical needs/condition, please notify the cad designer when making your appointment and one will be provided for you ([phone]). If you are taking overactive bladder medications [...] test is finished. documented in this encounter [facility] 03-26-2024 Note HNO ID: [id number] Author: CARMENZA NOLEN MD Service: ? Author Type: Physician Type: Progress Notes Filed: 03/26/2024 11:54 Note Text: [facility] [...] her bladder. Had bladder botox injections at [facility] about 3 mo ago with no improvement. 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 Carmenza Nolen MD [facility] 03-26-2024 History of Presen t illness Narrative [facility] [...] her bladder. Had bladder botox injections at [facility] about 3 mo ago with no improvement. 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 documented in this encounter [facility] 03-26-2024 Note HNO ID: [id number] Author: MARIA TERESA JOHNSON MA Service: ? Author Type: City Tax Auditor Type: Progress Notes Filed: 03/26/2024 11:54 Note Text: Pt voided upon arrival. PVR = 205 ml Via bladder scan. Pt was doing ISC, but was told she could stop. Pt instructed to give a urine specimen. 2ND Repeat PVR PVR = 135 ml Via bladder scan. [facility] 02-26-2024 Telephone encounter Note Pt LVM asking for her CT scan results. Noted in pt chart was an unread message from regarding the most recent CT scan. LVM for pt and let her know about MyChart message and provided number if pt has any further questions. [facility] 02-26-2024 Miscellaneous Notes Pt LVM asking for her CT scan results. Noted in pt chart was an unread message from regarding the most recent CT scan. LVM for pt and let her know about MyChart message and provided number if pt has any further questions. documented in this encounter [facility] 02-12-2024 Telephone encounter Note Patient LVM requesting results from 02/01/24 CT Urogram. Will update medical team [facility] 02-12-2024 Miscellaneous Notes Patient LVM requesting results from 02/01/24 CT Urogram. Will update medical team documented in this encounter [facility] 02-01-2024 Note HNO ID: [id number] Author: PRERNA CORRAL RT(R) Service: ? Author [...] PATIENT PRESENTS WITH AN IMPLANTABLE OR ATTACHED FLORAL DEPARTMENT SPECIALIST: No RADIOLOGY DEPARTMENT: CT; Exam(s) Completed: Urogram PERIPHERAL IV DATA: Site assessment: Clean,Dry and Intact, Site disposition Discontinued SIGNED BY: RT Michael(R) February 01, 2024 2:50 PM [facility] 02-01-2024 Note HNO ID: [id number] Author: HEIDY LINDA RN Service: Nursing Author [...] DATE: February 01, 2024 TIME: 2:50 PM [facility] 01-12-2024 Note HNO ID: [id number] Author: SANJANA CALLAWAY MA Service: ? Author Type: City Tax Auditor Type: Progress Notes Filed: 01/12/2024 14:43 Note Text: Post Void Residual done on patient with 211 cc residual volume remaining. notified. Sanjana Callaway MA [facility] 01-12-2024 History of Presen t illness Narrative Post Void Residual done on patient with 211 cc residual volume remaining. notified. Sanjana Callaway MA [facility] FOLLOW-UP PATIENT HISTORY AND [...] urogram Will refer to Dr. Tamanna Ruiz APRN.CARTOON ARTIST Attending Note I have personally performed a [...] Past Histories independently gathered by the clinical patient support associate and the remaining scribed note accurately describes my personal service to the patient. Dr. Taurus Ballard MD documented in this encounter [facility] 01-12-2024 Note HNO ID: [id number] Author: TAURUS BALLARD MD Service: ? Author Type: Physician Type: Progress Notes Filed: 01/12/2024 14:43 Note Text: [facility] [place] FOLLOW-[facility] PATIENT HISTORY AND PHYSICAL EXAM PATIENT [...] urogram Will refer to Dr. Tamanna Ruiz APRN.CARTOON ARTIST Attending Note I have personally performed a [...] MD Date: 01/12/2024 (more content not included)... [facility] 11-06-2023 Miscellaneous Notes Last Office Visit: 08/09/2024 Next Office Visit: 11/22/2023 Last Urine Drug Screen: Lab Results Component Value Date BENZOSCRN Negative 08/09/2023 OARRS appropriate documented in this encounter [facility] 11-06-2023 Telephone encounter Note Last Office Visit: 08/09/2024 Next Office Visit: 11/22/2023 Last Urine Drug Screen: Lab Results Component Value Date BENZOSCRN Negative 08/09/2023 OARRS appropriate [facility] 10-25-2023 Hospital Discharg e instructions Patient [...] including vitamins, herbs, eye drops, creams, and rbyb-xfv-kauukju medicines. Any problems you or family members [...] provider tells you to take them. Taking jyvm-iup-zdciilg medicines, vitamins, herbs, and supplements. General instructions [...] Follow these instructions at home: Medicines Take iqmg-ihw-sweluby and prescription medicines only as told by [...] provider. Document Revised: 02/11/2022 Document Reviewed: 02/11/2022 [employer] Patient Education 2022 [employer]. Follow Up Care 09/26/2023 08:43:34 With:CATALINA VIRGEN, HEIDY Rodriguez, URL Address: [address] [facility] [place] [address] When: Unknown [facility] [place] 10-10-2023 Miscellaneous Notes Last OV: 08/12/23 Next OV: proc 10/13/23 OARRS appropriate: yes Last UDS: 08/12/23 [facility] Telephone encounter Note Last OV: 08/12/23 Next OV: proc 10/13/23 OARRS appropriate: yes Last UDS: 08/12/23 [facility] Miscellaneous Notes Summary: ANAMARIAIANCE IRB# [id number] IRB# [id number]: Vascular events in patients undergoing same-day nonCardiac surgery - CHRISTOPHER PI: Mary Rojas MD, LETY, FASA. Outcomes Research Department. Anesthesia [place]. [facility]. Aislinn Pulido Liam was unavailable at the listed phone number. We will attempt to contact the patient through [employer] message. Drew Esqueda, Research Coordinator Research Coordinator documented in this encounter [facility] 09-26-2023 Miscellaneous Notes Summary: CHRISTOPHER IRB# [id number] IRB# [id number]: Vascular events in patients undergoing same-day nonCardiac surgery - ANAMARIABANNER PI: Mary Rojas MD, LETY, FASA. Outcomes Research Department. Anesthesia [place]. [facility]. Aislinn Wheeler was unavailable at the listed phone number. We will attempt to contact the patient again at a later date. Drew Esqueda, Research Coordinator Research Coordinator documented in this encounter [facility] 09-07-2023 Miscellaneous Notes Last OV: 08/09/2023 Next OV: --- OARRS appropriate: yes Last UDS: 08/09/2023 [facility] Patient left phone message requesting refill on [place] and Lyrica. Lyrica prescription signed 08/11/2023 has 1 refill. Per OARRS patient last filled Lyrica 08/11/2023. [place] prescription pended for review and signature. Patient's fill dated adjusted from 09/14/23 to 09/17/23 due to recent 3 day hospitalization. documented in this encounter [employer] 09-07-2023 Telephone encounter Note Last OV: 08/09/2023 Next OV: --- OARRS appropriate: yes Last UDS: 08/09/2023 [facility]acy[facility] Patient left phone message requesting refill on [place] and Lyrica. Lyrica prescription signed 08/11/2023 has 1 refill. Per OARRS patient last filled Lyrica 08/11/2023. [place] prescription pended for review and signature. [facility] [employer] 09-07-2023 Telephone encounter Note Patient's fill dated adjusted from 09/14/23 to 09/17/23 due to recent 3 day hospitalization. [facility] [employer] 09-03-2023 Note HNO ID: [id number] Author: KRYSTA SULLIVAN MD Service: Hospital Medicine [...] -- 08/31/23 1115 activity - mobilize patient ([place]) VTE Prophylaxis: VTE prophylaxis appropriate SIGNATURE: Krysta Sullivan MD PATIENT NAME: Aislinn Wheeler DATE: September 03, 2023 TIME: 6:31 PM [facility] 09-02-2023 Note HNO ID: [id number] Author: KRYSTA SULLIVAN MD Service: Hospital Medicine [...] -- 08/31/23 1115 activity - mobilize patient ([place]) VTE Prophylaxis: VTE prophylaxis appropriate SIGNATURE: Krysta Sullivan MD PATIENT NAME: Aislinn Wheeler DATE: September 02, 2023 TIME: 2:31 PM [facility] 09-02-2023 Note HNO ID: [id number] Author: NOTE, INTERFACE, ? Service: ? Author Type: ? Type: Progress Notes Filed: 09/02/2023 02:20 Note Text: Epic Scheduled Downtime: 09/02/2023 1:00:00 AM to 09/02/2023 2:04:22 AM [facility] 09-01-2023 Note HNO ID: [id number] Author: MIKE LOUIS RN Service: Care Management Author Type: Registered Nurse Type: Care Mgt Progress Note Filed: 09/01/2023 15:30 Note Text: CARE MANAGEMENT WEEKEND PLANNING NOTE NO WEEKEND DISCHARGE Disposition: TBD Anticipated Discharge Date: No weekend DC anticipated Weekend [employer] Pager #: Girish Rogers [phone] ANATOLIY UTI - repeat UA sent - bc pending Waiting on podiatry consult SIGNATURE: Mike Louis RN PATIENT NAME: Aislinn Wheeler DATE: September 01, 2023 TIME: 3:28 PM PAGER/CONTACT #: [phone] [facility] 09-01-2023 Note HNO ID: [id number] Author: ANTHONY BARROW MD Service: Hospital Medicine [...] -- 08/31/23 1115 activity - mobilize patient ([place]) VTE Prophylaxis: VTE prophylaxis appropriate SIGNATURE: Anthony Barrow MD PATIENT NAME: Aislinn Wheeler DATE: September 01, 2023 TIME: 11:36 AM [facility] 08-31-2023 History of Past i llness [...] of this encounter (statuses as of 09/27/2023) [facility]01-[facility]24 History of Past illness Narrative* Problem Noted Date Diagnosed Date Resolved Date Fever 08/31/2023 09/04/2023 Urinary tract infection without hematuria 08/31/2023 09/04/2023 Acute cystitis without hematuria 01/18/2021 01/21/2021 Pyelonephritis 01/17/2021 01/21/2021 Sepsis 01/17/2021 01/21/2021 Hyponatremia 01/17/2021 01/21/2021 Hyperkalemia 01/17/2021 09/04/2023 ANATOLIY (acute kidney injury) 01/17/2021 Hydronephrosis due to obstruction of ureter 01/17/2021 01/21/2021 documented as of this encounter (statuses as of 09/28/2023) [facility] History of Past illness Narrative* Problem Noted Date Diagnosed Date Resolved Date Fever 08/31/2023 09/04/2023 Urinary tract infection without hematuria 08/31/2023 09/04/2023 Acute cystitis without hematuria 01/18/2021 01/21/2021 Pyelonephritis 01/17/2021 01/21/2021 Sepsis 01/17/2021 01/21/2021 Hyponatremia 01/17/2021 01/21/2021 Hyperkalemia 01/17/2021 09/04/2023 ANATOLIY (acute kidney injury) 01/17/2021 Hydronephrosis due to obstruction of ureter 01/17/2021 01/21/2021 documented as of this encounter (statuses as of 09/28/2023) [facility]01-11-2024 NoteHNO ID: [id number] Author: TIN QUIÑONEZ LSW Service: Care Management Author Type: Painting Instructor Type: Care Mgt Initial Assessment Filed: 08/31/2023 14:02 Note Text: CARE MANAGEMENT: ASSESSMENT AND DISCHARGE PLAN SERVICE DATE: August 31, 2023 SERVICE TIME: 1:42 PM PCP: Agusto Olmstead Primary Contact: Extended Emergency Contact Information Primary Emergency Contact: LOLA SEARS Mobile Relation: Grandchild Admission Status: Inpatient Insurance Provider: [facility] MEDICARE PPO Discharge Planning requested by: Per Department Practice Potential Transition Plans To Be Determined Advance Directives Current Advance Directive: None Chip Mucker Attempted to Assist with AD Completion: Yes Action: Education Provided Current Living Arrangements and Support Lives with: Family members, Children Type of Residence: Private Residence (House) Support: Family members How do you manage to accomplish the following: Independent: Ambulation;Bathe/Shower;Dress;Meals/Meal Prep;Going to the bathroom;Medication Management;Transportation to appointments/community Current Services/Equipment Current Post-Acute Service(s): None Discharge Planning Patient Goal(s): General wellness [place] of Choice Explained: [place] of Choice Given: No Reason Not Given: [...] with pt at bedside. Pt lives in [place] with her grandchildren (18, 17, and 13). [...] 31, 2023 TIME: 1:42 PM CONTACT #: [id number] Evaluation note* Encounter Date Diagnosis Assessment Notes Treatment Notes Treatment Clinical Notes Jun, Vitamin B12 deficiency (ICD-10 - E53.8) Verafin Other 11-03-2023 NoteHNO ID: [id number] Author: Lakisha Kaye Service: ? Author Type: ? Type: Plan of Care Filed: 06/26/2023 9:53 AM Note Text: PHARMACY BEDSIDE DELIVERY SERVICE Patient Name: Aislinn Wheeler The marked outpatient medications were Filled at: [place] and delivered to the patient's bedside to [facility] Medication List START taking these medications [...] your Primary Care Provider. Lakisha Kaye PAGER: [phone] June 26, 2023 9:52 [facility]11-03-2023 Miscellaneous Notes* Telephone Encounter - Heidy Garcia RN - 06/23/2023 9:03 AM EDT Patient had left robotic partial nephrectomy by Dr. Ballard on 06/22/2023 Will call for surgical follow up once discharged [facility] NoteHNO ID: [id number] Author: Taurus Ballard MD Service: Urology Author Type: Physician Type: Progress Notes Filed: 06/23/2023 1:37 PM Note Text: [facility] UROLOGY PROGRESS NOTE Name: Aislinn Wheeler Bed: [id number] Date: June 23, 2023 After Hours [facility] [place] [facility] Service Pager: [phone] ASSESSMENT AND PLAN Aislinn Wheeler is a [...] Jeet De La Fuente MD Urology Resident [facility] [place] Pager [phone] SUBJECTIVE -c/o pain, had a BM, no [...] 0659 06/23/23 0700 - 06/24/23 0659 Shift 8079-3765 0051-4853 3206-8574 24 Hour Total 9854-1966 3408-1759 5420-3057 24 Hour Total INTAKE IV 1600 1600 Volume (mL) (lactated ringers iv infusion) 1000 1000 Volume (mL) (lactated ringers iv infusion) 600 600 Shift Total 1600 1600 OUTPUT Urine 300 529 303 9581 OR Urine Output 300 300 Output ( Indwelling Urinary Catheter 06/22/23 1130 Chaves 16 Fr) 777 499 4123 Tubes 20 40 60 Drain/Tube Output (Drain/Tube 06/22/23 1333 Lex Vega Right Lower Quadrant Abdomen Drain #1) 20 40 60 # of BMs Number of BMs 1 x 1 x Blood 50 50 Estimated Blood loss 50 50 Shift Total 350 368 553 2833 Weight (kg) 59 59 59 59 59 [...] We will call with pathology. Taurus Ballard [facility]11-02-2023 NoteHNO ID: [id number] Author: Linda Nicholson RN Service: Nursing Author Type: Registered Nurse Type: Nursing Progress Note Filed: 06/22/2023 2:15 PM Note Text: surgical dressing: surgical glue, [facility]11-02-2023 NoteHNO ID: [id number] Author: Lola Be APRN.RUBBER WASHER Service: ? Author Type: Nurse Manual Lathe Machinist Type: Anesthesia Procedure Notes Filed: 06/22/2023 12:24 PM Note Text: ANESTHESIOLOGY PROCEDURE NOTE Airway General Information Procedure Start Time/Medication Administration: 06/22/2023 11:22 AM Patient location during procedure: OR Patient identity confirmed: arm band, care maintenance team member and patient Staffing RUBBER WASHER: Lola Be APRN.RUBBER WASHER Performed by: RUBBER WASHER Indications and Patient Condition Indications for airway [...] June 22, 2023 TIME: 12:24 PM CSN: [id number] Miscellaneous Notes* Telephone Encounter - Vonnie Wilder RN - 06/15/2023 11:24 AM EDT Attempted to call patient for pre op instructions.mailbox is full and unable to LVM. Will try again. [facility] Evaluation note* Encounter Date Diagnosis Assessment [...] (ICD-10 - Z68.25) May, Other see above Verafin Other 10-02-2023 Note [id number]:127Nik [facility] 05-22-2023 NoteCystoscopy with Botox injection ? [...] if you have a fever over 100 degrees.[facility] 05-22-2023 Hospital Discharge instructions Patient Education 05/22/2023 [...] Up Care 05/03/2023 10:48:47 With:Lisa Porras Address: [address] [place] [phone] Business (1) [address], [address] [address] [phone] Business (1) When: Unknown Comments:Office to schedule follow up in 1 month with [facility]09-28-2023 Evaluation note* Encounter Date Diagnosis Assessment [...] 24.0-24.9, adult (ICD-10 - Z68.24) see above Verafin Other 09-28-2023 Miscellaneous Notes* Telephone Encounter - Agusto Faulkner - 05/18/2023 12:57 PM EDT Consult notes sent back to Dr. Lisa Porras , phone [phone]. [address] Ballard office. [facility]23 NoteHNO ID: [id number] Author: Taurus Ballard MD Service: ? Author Type: Physician Type: Progress Notes Filed: 05/17/2023 1:35 PM Note Text: [facility] [place] FOLLOW-[facility] PATIENT HISTORY AND PHYSICAL EXAM PATIENT INFO: Aislinn Wheeler 63 year old REFERRING M.D.: No referring provider defined for this encounter. CHIEF COMPLAINT: Cystic Bosniak 2F lesion, ANATLOIY HISTORY: Aislinn Wheeler is a 63 yr [...] 1.92 01/19/[address] scan (outside records) [facility] 09/28/21 IMPRESSION: Since the prior CT [...] threatening or minor complicatio (more content not included)...[id number] Hospital Discharge instructions Patient Education 02/22/2023 09:35:15 [...] provider. Document Revised: 12/16/2021 Document Reviewed: 12/16/2021 [employer] Patient Education 2022 [employer]. Follow Up Care 09/13/2022 14:59:43 With:Vern TAVERAS, EMELINA Hernandez, URO Address: When:Within 2 Month(s) Comments:w/ RIVAS [facility] [place] 05-09-2023 Evaluation note* Encounter Date [...] N28.1) Patient follows with urology clinic in [facility] for enlarging left renal cyst. December, Hyperkalemia [...] her blood pressure persistently more than 150/90. Verafin Other 02-01-2023 Hospital Discharge instructions Patient Education [...] 07/24/2013 Document Revised: 03/27/2019 Document Reviewed: 03/27/2019 [employer] Patient Education 2020 [employer]. Follow Up Care 09/14/2022 14:44:34 With:Vern TAVERAS, EMELINA Hernandez, URO Address: When: Unknown [facility] 01-24-2023 Hospital Discharge instructions Patient Education [...] fried and sweet foods. General instructions Take xooj-xzn-kmfjdsk and prescription medicines only as told by [...] 06/03/2010 Document Revised: 11/28/2019 Document Reviewed: 08/23/2018 [employer] Patient Education 2020 [employer]. Follow Up Care 08/24/2022 11:21:49 With:HEIDY ARNOLD PA-C, URL Address: [address] [place] [address] When: Unknown [facility]-09-[facility]21 Miscellaneous Notes* Telephone Encounter - Barbara Talbot - 01/27/2021 10:30 AM EDT Scheduled 02/15 * Telephone Encounter - Barb Silva MD - 01/27/2021 9:40 AM EDT Please schedule hospital follow up with Guy Overton Deitzer, or Sasha. Virtual ok documented in [facility]21 NoteHNO ID: [id number] Author: Griselda Diaz (Railway Traction Line Worker) Service: ? Author Type: ? Type: Plan [...] Generic drug: insulin detemir U-100 Griselda Diaz (Railway Traction Line Worker) PAGER: paris January 21, 2021 4:27 [id number] NoteHNO ID: [id number] Author: ELIZABETH Kothari Service: Care Management Author Type: Painting Instructor Type: Care Mgt Progress Note Filed: 01/21/2021 1:39 PM Note Text: CARE MANAGEMENT DISCHARGE NOTE SERVICE DATE: 01/21/2021 SERVICE TIME: 1300 LOS: 4 days Admission Date: 01/17/2021 DISCHARGE ARRANGEMENT (list agency and phone number) Discharge Arrangement: Home;Home Group Home Care: Nursing;PT;OT [facility] ASSESSMENT: Maira Davila to transport home [phone] HANDOFF COMMUNICATION: Handoff to: Other Caregiver;Primary Care Physician Primary Care Physician Name/Phone: Madeline Jordan PA-C Other Caregiver Name/Phone: [facility] Care TRANSPORTATION ARRANGEMENTS: Transportation Arrangements: Car (Family to transport) ADDITIONAL CONTACT RESOURCES: Nid[facility] not able to accept. Hardy of choice provided and sent to first available to accept to her service area. [facility] willing to accept. Pt concerned she does not [facility] cover services. I spoke with maira who plans on paying for services out of pocket until pt's insurance becomes active February 18, 2021 Discharge Information Row Name ED to Hosp-Admission (Current) from 01/17/[address] Care Agency [facility] Fax# Care to start after your appointment with internal medicine on 01/25/2021 for additional orders. The agency will be contacting you to set this up [employer] [facility] [employer] [facility] NPR Equipment Needed Walker was delivered to hospital room prior to discharge [facility] willing to accept pending pt has her initial appointment with internal medicine on 01/25/2021. Both pt and maira Davila were advised. Dr Hansen also provided script for outpt therapy should home care fall through or cost too high for jessicadtr to cover. Lola to call [facility] to discuss further. Walker was delivered to room and prescription was sent to [facility]. Lola to fruit or nut picker. No other homegoing needs. SIGNATURE: ELIZABETH Kothari PATIENT NAME: Aislinn Wheeler DATE: January 21, 2021 TIME: 1:32 PM PAGER/CONTACT #: [phone] [id number] NoteHNO ID: [id number] Author: Derik Daniel Service: Care Management Author Type: Resource Center Wireless Development Manager Type: Care Mgt Progress Note Filed: 01/21/2021 11:24 AM Note Text: CARE MANAGEMENT PROGRESS NOTE SERVICE DATE: 01/21/2021 SERVICE TIME: 950 LOS: 4 days IMM Follow Up Copy Given: Yes Copy given to:: Patient Method: In Person SIGNATURE: Derikmima Khalilloriepuma PATIENT NAME: Aislinn Wheeler DATE: January 21, 2021 TIME: 11:23 AM PAGER/CONTACT #: [phone] NoteHNO ID: [id number] Author: Ailyn Salas RN Service: Care Management Author Type: Registered Nurse Type: Care Mgt Progress Note Filed: 01/20/2021 3:29 PM Note Text: CARE MANAGEMENT PROGRESS NOTE SERVICE DATE: 01/20/2021 SERVICE TIME: 3:09 PM LOS: 3 days Hardy of Choice Given: Yes Level of Care Discussed: Home Care Financial Disclosure Provided: No Financial Disclosure Comments: [facility] does not service area Provider List: Home [...] sent. Patient does not have a PCP. [facility] Care can provide a visiting provider [...] 20, 2021 TIME: 3:09 PM PAGER/CONTACT #: [phone] NoteHNO ID: [id number] Author: Inna Hansen DO Service: Hospital Medicine Author Type: Physician Type: Progress Notes Filed: 01/20/2021 12:37 PM Note Text: DEPARTMENT OF HOSPITAL MEDICINE PROGRESS NOTE SERVICE DATE: 01/20/2021 SERVICE TIME: 10:37 AM Hospital Medicine/Primary Attending: Inna Hansen DO NIGHT AND WEEKEND COVERAGE: DELMY COVERAGE: : [phone], please contact via [employer] Nights: [phone], please page CC Hospitalist Night coverage pager [phone] Subjective INTERVAL HPI: nausea and vomiting this [...] Non-Pharmacologic VTE Prophylaxis/Anticoagulants 01/17/212214 pneumatic compression stockings (md,wy) 01/17/212214 activity - mobilize patient ([place]) VTE Prophylaxis: VTE prophylaxis appropriate Disposition: TBD Inna Hansen DO January 20, 2021 10:39 [id number] NoteHNO ID: [id number] Author: Benjamin Bernal MD Service: Urology Author [...] Wendy Bernal MD January 19, 2021 4:12 [facility] [id number] NoteHNO ID: [id number] Author: Diana SernaD Service: Pharmacy Author Type: Pharmacist Type: Plan of Care Filed: 01/19/2021 11:02 AM Note Text: PHARMACY MEDICATION REVIEW Patient Name: Aislinn Wheeler : 1960 The following medications were updated within the MOLD FILLING OPERATOR medication list: Medications ADDED to MOLD FILLING OPERATOR medication list ? Albuterol HFA (replaced nebs) ? Levemir (replaced Lantus) Medications CHANGED on MOLD FILLING OPERATOR medication list ? Lyrica (added instructions) ? Symbicort (added instructions) Medications REMOVED from MOLD FILLING OPERATOR medication list ? Diltiazem ? Cymbalta ? [...] nothing too big . Call placed to [facility] pharmacy to clarify prescribed dose of insulin, and the only prescription for insulin [facility] has on file is for Relion 70/30 inject 25 units BID. [facility] pharmacist states this was prescribed 02/19/2020 but never picked up. The below information represents the best possible medication history: Yes Medication history completed by: Pharmacist: Shelby Lucero PharmD Source of history: Patient: Reliability of source: Appears reliable, clearly identified: Medication name and Pharmacy records: SureScripts data, [facility] pharmacy (phone call) Medication nonadherence identified: Unable to assess - it is clear the patient is noncompliant with her medications (admits she has been off her meds, no insulin fills at [facility] despite patient report), but at this time unable to assess reason for nonadherence. Reconciliation completed: Yes All MOLD FILLING OPERATOR medications addressed by LIP and Medication reconciliation completed by: Shelby Lucero PharmD Medications with dose or frequency intentionally adjusted at admission: ? [place] modified to 5/325 mg q6h PRN New medications at admission: ? Ceftriaxone Note patient ordered insulin regimen (Lantus 15 units QHS + sliding scale Humalog) and based on blood glucose readings, this is appropriate Patient interested in Bedside Delivery Services or using [facility] at discharge? Unable to assess Preferred outpatient pharmacy: [facility] [address] [place] [address] - [address] [facility] - [phone] Allergies: Latex Rash Comment:Added based on information [...] as instructed twice daily. Shelby Lucero, PharmD 01/19/20[place] [id number] NoteHNO ID: [id number] Author: Inna Hansen DO Service: Hospital Medicine Author Type: Physician Type: Progress Notes Filed: 01/19/2021 2:24 PM Note Text: DEPARTMENT OF HOSPITAL MEDICINE PROGRESS NOTE SERVICE DATE: 01/19/2021 SERVICE TIME: 9:30 AM Hospital Medicine/Primary Attending: Inna Hansen DO NIGHT AND WEEKEND COVERAGE: DELMY COVERAGE: Days: [phone], please contact via UXCamsage Nights: [phone], please page [facility] Hospitalist Night coverage pager [phone] Subjective INTERVAL HPI: no overnight events. Denies [...] Non-Pharmacologic VTE Prophylaxis/Anticoagulants 01/17/212214 pneumatic compression stockings ([place]) 01/17/212214 activity - mobilize patient ([place]) VTE Prophylaxis: VTE prophylaxis appropriate Disposition: Home Discussed with granddaughter Lola by phone with patient's permission. Inna Hansen DO January 19, 2021 9:33 [id number] History of Past illness Narrative* Problem Noted Date Resolved Date Acute cystitis without hematuria 01/18/2021 01/21/2021 Pyelonephritis 01/17/2021 01/21/2021 Sepsis 01/17/2021 01/21/2021 Hyponatremia 01/17/2021 01/21/2021 Hyperkalemia 01/17/2021 01/21/2021 Hydronephrosis due to obstruction of ureter 12/2101/21/2021 documented as of this encounter (statuses as of 01/27/2021) [facility] History of Past illness Narrative* Problem Noted Date Diagnosed Date Resolved Date Acute cystitis without hematuria 01/18/2021 01/21/2021 Pyelonephritis 01/17/2021 01/21/2021 Sepsis 01/17/2021 01/21/2021 Hyponatremia 01/17/2021 01/21/2021 Hyperkalemia 01/17/2021 01/21/2021 Hydronephrosis due to obstruction of ureter 01/17/2021 01/21/2021 documented as of this encounter (statuses as of 06/09/2023) [facility] History of Past illness Narrative* Problem Noted Date Diagnosed Date Resolved Date Acute cystitis without hematuria 01/18/2021 01/21/2021 Pyelonephritis 01/17/2021 01/21/2021 Sepsis 01/17/2021 01/21/2021 Hyponatremia 01/17/2021 01/21/2021 Hyperkalemia 01/17/2021 01/21/2021 Hydronephrosis due to obstruction of ureter 01/17/2021 01/21/2021 documented as of this encounter (statuses as of 06/15/2023) [facility] History of Past illness Narrative* Problem Noted Date Diagnosed Date Resolved Date Acute cystitis without hematuria 01/18/2021 01/21/2021 Pyelonephritis 01/17/2021 01/21/2021 Sepsis 01/17/2021 01/21/2021 Hyponatremia 01/17/2021 01/21/2021 Hyperkalemia 01/17/2021 01/21/2021 Hydronephrosis due to obstruction of ureter 01/17/2021 01/21/2021 documented as of this encounter (statuses as of 06/19/2023) [facility] History of Past illness Narrative* Problem Noted Date Diagnosed Date Resolved Date Acute cystitis without hematuria 01/18/2021 01/21/2021 Pyelonephritis 01/17/2021 01/21/2021 Sepsis 01/17/2021 01/21/2021 Hyponatremia 01/17/2021 01/21/2021 Hyperkalemia 01/17/2021 01/21/2021 Hydronephrosis due to obstruction of ureter 01/17/2021 01/21/2021 documented as of this encounter (statuses as of 06/23/2023) [facility] History of Past illness Narrative* Problem Noted Date Diagnosed Date Resolved Date Acute cystitis without hematuria 01/18/2021 01/21/2021 Pyelonephritis 01/17/2021 01/21/2021 Sepsis 01/17/2021 01/21/2021 Hyponatremia 01/17/2021 01/21/2021 Hyperkalemia 01/17/2021 01/21/2021 Hydronephrosis due to obstruction of ureter 01/17/2021 01/21/2021 documented as of this encounter (statuses as of 07/05/2023) [facility] NoteHNO ID: [id number] Author: Inna Hansen DO Service: Hospital Medicine Author Type: Physician Type: Progress Notes Filed: 01/18/2021 4:10 PM Note Text: DEPARTMENT OF HOSPITAL MEDICINE PROGRESS NOTE SERVICE DATE: 01/18/2021 SERVICE TIME: 8:57 AM Hospital Medicine/Primary Attending: Inna Hansen DO NIGHT AND WEEKEND COVERAGE: DELMY COVERAGE: Days: [phone], please contact via [employer] - Connective Software Engineeringsage Nights: [phone], please page [facility] Hospitalist Night coverage pager [phone] Subjective INTERVAL HPI: no overnight events. Denies [...] Yes Hyperkalemia POA: Yes Principal Problem: Sepsis ([facility]) Pyelonephritis Complicated UTI Hydronephrosis due to obstruction [...] Non-Pharmacologic VTE Prophylaxis/Anticoagulants 01/17/212214 pneumatic compression stockings ([place]) 01/17/212214 activity - mobilize patient ([place] VTE Prophylaxis: VTE prophylaxis appropriate Disposition: Home SIGNATURE: Inna Hansen DO PATIENT NAME: Aislinn Wheeler DATE: January 18, 2021 TIME: 8:57 [id number] NoteHNO ID: [id number] Author: Taurus Ballard MD Service: Urology Author [...] cause of her urinary retention. Taurus Ballard, [facility] HospitalXfpoklcm06-06-1792 NoteHNO ID: [id number] Author: RT Dayanara(R) Service: Radiology Author Type: Tar Roofer Type: Progress Notes Filed: 01/17/2021 8:04 PM [...] BY: RT Dayanara(R) January 17, 2021 8:03 [id number] NoteHNO ID: [id number] Author: RT Dayanara(R) Service: Radiology Author Type: Tar Roofer Type: Progress Notes Filed: 01/17/2021 5:30 PM [...] BY: RT Dayanara(R) January 17, 2021 5:30 [id number] NoteHNO ID: [id number] Author: RT Zaynab(R) Service: Radiology Author Type: Tar Roofer Type: Progress Notes Filed: 01/17/2021 4:23 PM [...] Workman RT (R) January 17, 2021 4:22 [facility] [id number] NoteHNO ID: [id number] Author: AHSAN Barlow Service: ? Author Type: Clinical Tar Roofer Type: Progress Notes Filed: 01/17/2021 4:19 PM [...] BY: AHSAN Dozier January 17, 2021 4:19 [facility] Future Appointments Appointment Date:12/13/2022 03:00:00 PM Scheduled Provider:HEIDY ARNOLD PA-C Location:[facility] Appointment Type:URO Office Visit [facility] evaluation + Plan note Future Appointments Appointment Date:10/26/2022 10:00:00 AM Scheduled Provider:Lisa Porras MD Location:[facility] Appointment Type:URO Office Visit Appointment Date:12/13/2022 03:00:00 PM Scheduled Provider:HEIDY ARNOLD PA-C Location:[facility] Appointment Type:URO Office Visit [facility] evaluation + Plan note Future Appointments Appointment Date:05/03/2023 10:00:00 AM Scheduled Provider:Lisa Porras MD Location:[facility] Appointment Type:URO Office Visit [facility] evaluation + Plan note Future Appointments Appointment Date:05/03/2023 10:00:00 AM Scheduled Provider:Lisa Porras MD Location:[facility] Appointment Type:URO Office Visit Diagnostic Tests Pending * [facility]rine [facility] App[facility]ments Appointment Date:05/15/2023 12:30:00 PM Scheduled Provider: Location:[facility] Appointment Type:Urology CALL PAT FT Appointment Date:05/22/2023 10:30:00 AM Scheduled Provider: Location:[facility] Appointment Type:Urology FT Diagnostic Tests Pending * Urine [facility] Future Appointments Appointment Date:06/28/2023 10:45:00 AM Scheduled Provider:Lisa Porras MD Location:[facility] Appointment Type:[facility]O [facility] Future Appointments Appointment Date:06/28/2023 10:45:00 AM Scheduled Provider:Lisa Porras MD Location:[facility] Appointment Type:URO Office Visit Diagnostic Tests Pending * Urine Culture [facility]08[facility] Future Appointments Appointment Date:07/18/2023 11:20:00 AM Scheduled Provider:HEIDY ARNOLD PA-C Location:[facility] Appointment Type:URO Office Visit [facility] evaluation + Plan note Future Appointments Appointment Date:10/10/2023 11:40:00 AM Scheduled Provider:HEIDY ARNOLD PA-C Location:[facility] Appointment Type:URO Office Visit [facility] evaluation noteNo Liquefied Natural GasNoU[employer]-Online Other Evaluation note* Diagnosis Kidney cyst, acquired- Primary Acquired cyst of kidney documented [facility]* Diagnosis Reflex sympathetic dystrophy of right upper extremity documented [facility] noteNo assessment information [facility] Work Phone: Evaluation note* Diagnosis Reflex sympathetic dystrophy of right upper extremity Complex regional pain syndrome type 1 of right upper extremity [facility]* Diagnosis Reflex sympathetic dystrophy of right upper extremity Complex regional pain syndrome type 1 of right upper extremity [facility]* Diagnosis Other hydronephrosis- Primary Screening for genitourinary condition Screening for other and unspecified genitourinary condition documented in this [facility]* Diagnosis Retention of urine- Primary Retention of urine, unspecified Screening for genitourinary condition Screening for other and unspecified genitourinary condition Type 2 diabetes mellitus with hyperglycemia, with long-term current use of insulin ([facility]) BURKE (stress urinary incontinence, female) Female stress incontinence documented [facility]* Diagnosis Lung nodule- Primary Solitary pulmonary nodule documented in this [facility]* Diagnosis Stress incontinence- Primary Female stress incontinence Dysfunctional voiding of urine Unspecified disorder of urethra and urinary tract documented in this [facility]* Diagnosis Preop examination- [...] hyperglycemia, with long-term current use of insulin ([facility]) Neurogenic bladder- Primary Neurogenic bladder, NOS BURKE (stress urinary incontinence, female) Female stress incontinence documented in this encounter [facility] general Narrative - Reported* Type Description [...] SURGERY Hospitalization History DKA 2014 Hospitalization History [facility] SEPSIS 05/2022 Verafin Other [facility] general Narrative - Reported* Type Description Date [...] SURGERY Hospitalization History [facility] 2014 Hospitalization History [facility] SEPSIS 05/2022 [facility] Other Hospital course Narrative No data available for this section [facility] Hospital Discharge instructions No data available for this section [facility] InstructionsNot on filedocumented in this encounter [facility] filedocumented in this encounter [facility] No data available for this section [facility] Haroldo reason for referral (narrative)* Diagnostic Procedure Only (Routine) - Pending Review Specialty Diagnoses / Procedures Referred By Danny hensley Referred To Contact [facility] Diagnoses Kidney cyst, acquired Procedures US KIDNEY/BLADDER US RETROPERITONEAL REAL TIME W/IMAGE COMPLETE Taurus Ballard MD [address] [place] [address] Us Imaging [place] [address] Referral ID Status Reason Start Date Expiration Date Visits Requested Visits Authorized [id number] Pending Review Auto-Generat ed Referral 10/05/2023 08/03/2024 1 1 [facility] (narrative)* Outpatient Procedure (Routine) - New Request Specialty Diagnoses / Procedures Referred By Danny hensley Referred To Contact [facility] Diagnoses Retention of urine BURKE (stress urinary incontinence, female) Procedures FLUROURODYNAMICS WITH EMG EMG STDS ANAL/URTL SPHNCTR OTH/THN NDL Carmenza Nolen MD [address] [place] [address] [place] [address] Referral ID Status Reason Start Date Expiration Date Visits Requested Visits Authorized [id number] New Request Auto-Generat ed Referral 03/26/2024 03/26/2025 1 1 [facility] for visit NarrativeReferral Agusto Olmstead, New pt Type 2 IDDM apt with [employer]Map[employer] FURNITURE POLISHER, NIGHT CLEANER-C, BC-ADMNorth Mob[employer] Other Summary Purpose Family History No Family [...] FoundDocuments on File Type Date Recorded 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 Expl anation Advance Directive(s) 01/17/2021 3:49 PM Reason for Referral Specialty Diagnoses / Procedures Referred By Contyehuda t Referred To Contact CT IMAGING Diagnoses Other hydronephrosis Procedures CT UROGRAM WO/W IVCON CT ABD & PELVIS W/WO CONTRST 1+ BODY REGNS Taurus Ballard MD [address] [place] [address] Ct Imaging [id number] Referral ID Status Reason Start Date Expiration Date Visits Requested Visits Authorized [id number] Pending Review Auto-Generat ed Referral 01/19/2024 02/10/2025 1 1 Referred by: Vern TAVERAS, Lisa Montiel Chief Complaint and Reason for Visit Chief Complaint Renal 4 Month Follow Up Additional Source Comments INFORMATION SOURCE (unrecogn ized section and content) DATE CREATED AUTHOR 01/23/2021 [facility] DATE CREATED AUTHOR AUTHOR'S ORGANIZ ATION 01/04/2023 [facility] DATE CREATED AUTHOR AUTHOR'S ORGANIZ ATION 10/19/2023 [facility] DATE CREATED AUTHOR AUTHOR'S ORGANIZ ATION 11/03/2023 [facility] DATE CREATED AUTHOR AUTHOR'S ORGANIZ ATION 03/05/2024 [facility] DATE CREATED AUTHOR AUTHOR'S ORGANIZ ATION 04/02/2024 [facility] DATE CREATED AUTHOR AUTHOR'S ORGANIZ ATION 04/15/2024 [facility] DATE CREATED AUTHOR AUTHOR'S ORGANIZ ATION 04/18/2024 [facility] dical [facility] DATE CREATED AUTHOR AUTHOR'S ORGANIZ ATION 04/25/2024 [facility] Source Comments (unrecognize d section and content) In the event this informatio n is protected by the Federal Confidentiality of Alcohol and Drug Abuse Patient Records regulations: The Federal rules restrict any use of the information to criminally investigate or prosecute any alcohol or drug abuse patient.[facility] the event this information is protected by the Federal Confidentiality of Alcohol and Drug Abuse Patient Records regulations: The Federal rules restrict any use of the information to criminally investigate or prosecute any alcohol or drug abuse patient.[facility] HospitalIn the event this information is protected by the Federal Confidentiality of Alcohol and Drug Abuse Patient Records regulations: The Federal rules restrict any use of the information to criminally investigate or prosecute any alcohol or drug abuse patient.[facility] HospitalIn the event this information is protected by the Federal Confidentiality of Alcohol and Drug Abuse Patient Records regulations: The Federal rules restrict any use of the information to criminally investigate or prosecute any alcohol or drug abuse patient.[facility] HospitalIn the event this information is protected by the Federal Confidentiality of Alcohol and Drug Abuse Patient Records regulations: The Federal rules restrict any use of the information to criminally investigate or prosecute any alcohol or drug abuse patient.[facility] HospitalIn the event this information is protected by the Federal Confidentiality of Alcohol and Drug Abuse Patient Records regulations: The Federal rules restrict any use of the information to criminally investigate or prosecute any alcohol or drug abuse patient.[facility] HospitalIn the event this information is protected by the Federal Confidentiality of Alcohol and Drug Abuse Patient Records regulations: The Federal rules restrict any use of the information to criminally investigate or prosecute any alcohol or drug abuse patient.[facility] HospitalIn the event this information is protected by the Federal Confidentiality of Alcohol and Drug Abuse Patient Records regulations: The Federal rules restrict any use of the information to criminally investigate or prosecute any alcohol or drug abuse patient.[facility] HospitalIn the event this information is protected by the Federal Confidentiality of Alcohol and Drug Abuse Patient Records regulations: The Federal rules restrict any use of the information to criminally investigate or prosecute any alcohol or drug abuse patient.[facility] HospitalIn the event this information is protected by the Federal Confidentiality of Alcohol and Drug Abuse Patient Records regulations: The Federal rules restrict any use of the information to criminally investigate or prosecute any alcohol or drug abuse patient.[facility] HospitalIn the event this information is protected by the Federal Confidentiality of Alcohol and Drug Abuse Patient Records regulations: The Federal rules restrict any use of the information to criminally investigate or prosecute any alcohol or drug abuse patient.[facility] HospitalIn the event this information is protected by the Federal Confidentiality of Alcohol and Drug Abuse Patient Records regulations: The Federal rules restrict any use of the information to criminally investigate or prosecute any alcohol or drug abuse patient.[facility] HospitalIn the event this information is protected by the Federal Confidentiality of Alcohol and Drug Abuse Patient Records regulations: The Federal rules restrict any use of the information to criminally investigate or prosecute any alcohol or drug abuse patient.[facility] HospitalIn the event this information is protected by the Federal Confidentiality of Alcohol and Drug Abuse Patient Records regulations: The Federal rules restrict any use of the information to criminally investigate or prosecute any alcohol or drug abuse patient.[facility] HospitalIn the event this information is protected by the Federal Confidentiality of Alcohol and Drug Abuse Patient Records regulations: The Federal rules restrict any use of the information to criminally investigate or prosecute any alcohol or drug abuse patient.[facility] HospitalIn the event this information is protected by the Federal Confidentiality of Alcohol and Drug Abuse Patient Records regulations: The Federal rules restrict any use of the information to criminally investigate or prosecute any alcohol or drug abuse patient.[facility] HospitalIn the event this information is protected by the Federal Confidentiality of Alcohol and Drug Abuse Patient Records regulations: The Federal rules restrict any use of the information to criminally investigate or prosecute any alcohol or drug abuse patient.[facility] HospitalIn the event this information is protected by the Federal Confidentiality of Alcohol and Drug Abuse Patient Records regulations: The Federal rules restrict any use of the information to criminally investigate or prosecute any alcohol or drug abuse patient.[facility] Reason for Visit (unrecogniz ed section [...] c/o UNCONTROLLED leakage - STOP ICS X2 [id number] Patient Care team informatio n (unrecognized section and content) Quad Stayer Relationship Specialty Start Date End Date RicAgusto casillas [address] [place] [address] [place] [address] PCP - General 05/17/23 Lisa Porras MD [address] [place] [address] Referring Urology 05/11/23 Quad Stayer Relationship Specialty Start Date End Date [facility] [address] [place] [address] [place] [address] PCP - General 05/17/23 Lisa Porras MD [address] [place] [address] Referring Urology 05/11/23 Quad Stayer Relationship Specialty Start Date End Date Ricapurvamundo Agusto [address] [place] [address] PCP - General 05/17/23 Lisa Porras MD [address] [place] [id number] Referring Urology 05/11/23 Quad Stayer Relationship Specialty Start Date End Date RicapurvaAgusto casillas [address] [facility] [place] [address] PCP - General 05/17/23 Lisa Porras MD [address] [place] [phone] Referring Urology 05/11/23 Quad Stayer Relationship Specialty Start Date End Date Agusto Olmstead, FURNITURE POLISHER-CARTOON ARTIST [address] [place] [address] PCP - General Nurse Practitioner 11/10/22 Quad Stayer Relationship Specialty Start Date End Date RicapurvaAgusto casillas [address] [place] [address] PCP - General 05/17/23 Lisa Porras MD [address] [address] Referring Urology 05/11/23 Quad Stayer Relationship Specialty Start Date End Date Agusto Olmstead [address] [place] [address] PCP - General 05/17/23 Lisa Porras MD [address] [place] [address] Referring Urology 05/11/23 Team Status: Active Member Role Status Dates Sumi Lentz APRN DIRECTOR SPEECH-C Primary Care Provider Active Team Status: Inactive Member Role Status Dates Eli Sprague MD Attending Provider Active Star t: August 01, 2023 End: August 01, 2023 Quad Stayer Relationship Specialty Start Date End Date Agusto Olmstead APRN-CARTOON ARTIST [address] [place] [address] PCP - General Nurse Practitioner 11/10/22 Quad Stayer Relationship Specialty Start Date End Date Agusto Olmstead FURNITURE POLISHER-CARTOON ARTIST [address] [place] [address] PCP - General Nurse Practitioner 11/10/22 Quad Stayer Relationship Specialty Start Date End Date RicapurvaAgusto casillas [address] [place] [address] PCP - General 05/17/23 Lisa Porras MD [address] [place] [address] Referring Urology 05/11/23 Agusto Olmstead [address] [place] [address] Referring 01/04/24 Quad Stayer Relationship Specialty Start Date End Date Agusto Olmstead [address] [place] [address] PCP - General 05/17/23 Lisa Porras MD [address] [place] [address] Referring Urology 05/11/23 Agusto Olmstead [address] [place] [address] Referring 01/04/24 Quad Stayer Relationship Specialty Start Date End Date Agusto Olmstead [address] [place] [address] PCP - General 05/17/23 Lisa Porras MD [address] [place] [address] Referring Urology 05/11/23 Agusto Olmstead [address] [place] [address] Referring 01/04/24 Quad Stayer Relationship Specialty Start Date End Date Agusto Olmstead [address] [place] [address] PCP - General 05/17/23 Lisa Porras MD [address] [place] [address] Referring Urology 05/11/23 Agusto Olmstead [address] [place] [address] Referring 01/04/24 Quad Stayer Relationship Specialty Start Date End Date Agusto Olmstead [address] [place] [address] PCP - General 05/17/23 Lisa Porras MD [address] [place] [address] Referring Urology 05/11/[address] [place] [address] Referring 01/04/24 Quad Stayer Relationship Specialty Start Date End Date Agusto Olmstead [address] [place] [address] PCP - General 05/17/23 Lisa Porras MD [address] [place] [address] Referring Urology 05/11/23 Agusto Olmstead [address] [place] [address] Referring 01/04/24 Quad Stayer Relationship Specialty Start Date End Date Agusto Olmstead [address] [place] [address] PCP - General 05/17/23 Lisa Porras MD [address] [place] [address] Referring Urology 05/11/[address] [place] [address] Referring 01/04/24 Quad Stayer Relationship Specialty Start Date End Date Agusto Olmstead [address] [place] [address] PCP - General 05/17/23 Lisa Porras MD [address] [place] [address] Referring Urology 05/11/23 Agusto Olmstead [address] [place] [address] Referring 01/04/24 Goals (unrecognized section and content) [...] BE BASED ON THE PRIMARY CLINICAL RECORDS. [facility] [employer] [facility]. provides no warranty or guarantee of the accuracy or completeness of information in this document.
[2024-04-26] MEDS: 0.9 % SODIUM CHLORIDE 1,000 ML 100 ML IV ×2 (04:07→18:07)
[2024-04-26] MEDS: SODIUM ZIRCONIUM CYCLOSILICATE 10 GM POWD.PACK PO ×3 (04:07→14:26)
[2024-04-26] MEDS: AZITHROMYCIN 500 MG in 0.9 % SODIUM CHLORIDE 250 ML 250 MG IV (04:15)
[2024-04-26 06:10] LABS: BUN Creatinine Ratio 17.8; Calcium 8.2 mg/dL (8.5-10.1); Chloride 108 mmol/L (98-107); Estimated GFR (African America 24 (>=60); Estimated GFR (Non-African Ame 20 (>=60); Glucose 234 mg/dL (74-106); Sodium 136 mmol/L (136-145)
--- OUTSIDE RECORDS SUMMARY | 2024-04-26 06:22 | XMS_ITS | CCD ---
Author Organization [facility] Care Team Providers Care Medical Health Researcher Name Role Phone Pcp, No Primary Care Provider Unavailisidra e AGUSTO OLMSTEAD Primary Care Physician Eli Sprague Unavailable MARIBEL WEBSPHERE ARCHITECT AGUSTO Attending Unavailable AICHHOLZ, WEBSPHERE ARCHITECT AGUSTO Consulting Unavailable AICHHOLZ, WEBSPHERE ARCHITECT AGUSTO Admitting Unavailable AICHHOLZ, WEBSPHERE ARCHITECT AGUSTO Primary Care Unavailable RAMON HUNTLEY Attending Unavailable RAMON HUNTLEY Admitting Unavailable REQUEST, DR PANDEY LISTED Primary Care Unavaila georgi DELVALLE, DR THANH García Consulting Unavailable RAMON HUNTLEY Consulting Unavailable RICHHOLZ, WEBSPHERE ARCHITECT AGUSTO Primary Care Unavailable RAMON HUNTLEY Admitting Unavailable RAMON HUNTLEY Attending Unavailable AICHHOLZ, WEBSPHERE ARCHITECT AGUSTO Primary Care Unavailable FAWWAD, AMADO H Consulting Unavailable FAWWAD, AMADO H Admitting Unavailable FAWWAD, AMADO H Attending Unavailable AICHHOLZ, WEBSPHERE ARCHITECT AGUSTO Consulting Unavailable AICHHOLZ, WEBSPHERE ARCHITECT AGUSTO Admitting Unavailable AICHHOLZ, WEBSPHERE ARCHITECT AGUSTO Attending Unavailable AICHHOLZ, WEBSPHERE ARCHITECT AGUSTO Primary Care Unavailable RAMON HUNTLEY Attending Unavailable AICHHOLZ, WEBSPHERE ARCHITECT AGUSTO Primary Care Unavailable RAMON HUNTLEY Admitting Unavailable BHARAT, DR NUBIA Carlos Consulting Unavailable RAMON HUNTLEY Consulting Unavailable RICHHOLZ, WEBSPHERE ARCHITECT AGUSTO Primary Care Unavailable DR NUBIA NICHOLSON V Consulting Unavailable CAMMIE SEGURA Admitting Unavailable CAMMIE SEGURA Attending Unavailable CAMMIE SEGURA Consulting Unavailable AICHHOLZ, WEBSPHERE ARCHITECT AGUSTO Primary Care Unavailable AICHHOLZ, WEBSPHERE ARCHITECT AGUSTO Attending Unavailable AICHHOLZ, WEBSPHERE ARCHITECT AGUSTO Admitting Unavailable WEST, DR NUBIA Carlos Consulting Unavailable AICHHOLZ, WEBSPHERE ARCHITECT AGUSTO Consulting Unavailable AICHHOLZ, WEBSPHERE ARCHITECT AGUSTO Primary Care Unavailable COLTON, CAMMIE Admitting Unavailable COLTON, CAMMIE Attending Unavailable COLTON, CAMMIE Consulting Unavailable AICHHOLZ, WEBSPHERE ARCHITECT AGUSTO Primary Care Unavailable AICHHOLZ, WEBSPHERE ARCHITECT AGUSTO Attending Unavailable AICHHOLZ, WEBSPHERE ARCHITECT AGUSTO Consulting Unavailable AICHHOLZ, WEBSPHERE ARCHITECT AGUSTO Admitting Unavailable AICHHOLZ, WEBSPHERE ARCHITECT AGUSTO Primary Care Unavailable WEST, DR NUBIA Carlos Consulting Unavailable COLTON, CAMMIE Admitting Unavailable COLTON, CAMMIE Attending Unavailable COLTON, CAMMIE Consulting Unavailable AICHHOLZ, WEBSPHERE ARCHITECT AGUSTO Primary Care Unavailable ZIEBER, DR THANH García Consulting Unavailable HIGHLANDER, RAMON Tillman Attending Unavailable HIGHLANDER, RAMON Tillman Admitting Unavailable HIGHLANDERRAMON Consulting Unavailable AICHHOLZ, WEBSPHERE ARCHITECT AGUSTO Primary Care Unavailable FOSTER ., DR PAGE Admitting Unavailable FOSTER ., DR PAGE Attending Unavailable FOSTER ., DR PAGE Consulting Unavailable ZIEBER, DR THANH García Consulting Unavailable WILLYANDER, PETER Primo Admitting Unavailable AICHHOLZ, WEBSPHERE ARCHITECT AGUSTO Primary Care Unavailable ZIEBER, DR THANH García Consulting Unavailable HIGHLANDER, PETER Primo Attending Unavailable HIGHLANDER PETER Primo Consulting Unavailable AICHHOLZ, WEBSPHERE ARCHITECT AGUSTO Primary Care Unavailable AICHHOLZ, WEBSPHERE ARCHITECT AGUSTO Attending Unavailable AICHHOLZ, WEBSPHERE ARCHITECT AGUSTO Consulting Unavailable AICHHOLZ, WEBSPHERE ARCHITECT AGUSTO Admitting Unavailable ZIEBER, DR THANH García Consulting Unavailable AICHHOLZ, WEBSPHERE ARCHITECT AGUSTO Primary Care Unavailable ZIEBER, DR THANH García Consulting Unavailable HIGHLANDER, RAMON Tillman Attending Unavailable HIGHLANDER PETER D Admitting Unavailable HIGHLANDERRAMON Consulting Unavailable AICHHOLZ, WEBSPHERE ARCHITECT AGUSTO Primary Care Unavailable ZIEBER, DR THANH García Consulting Unavailable COLTON, CAMMIE Admitting Unavailable COLTON, CAMMIE Attending Unavailable COLTON, CAMMIE Consulting Unavailable RAQUEL DERAS Admitting Unavailable RAQUEL DERAS Attending Unavailable KASIE CANDELARIO Consulting Unavailable REQUEST, DR PANDEY LISTED Primary Care Unavaila ble WANDY .RAQUEL Consulting Unavailable LYLE MATIAS Consulting Unavailable AICHHOLZ, WEBSPHERE ARCHITECT AGUSTO Primary Care Unavailable EARL ., DR CARMONA Admitting Unavailable EARL ., DR CARMONA Attending Unavailable EARL ., DR CARMONA Consulting Unavailable TONY LUO Consulting Unavailable NUBIA BATEMAN Consulting Unavailable AICHHOLZ, WEBSPHERE ARCHITECT AGUSTO Primary Care Unavailable HIGHLANDER, RAMON Tillman Admitting Unavailable HIGHLANDER, RAMON Tillman Attending Unavailable HIGHLANDER, RAMON Tillman Admitting Unavailable AICHHOLZ, WEBSPHERE ARCHITECT AGUSTO Primary Care Unavailable HIGHLANDER, RAMON Tillman Attending Unavailable HIGHLANDER, PETER D Admitting Unavailable AICHHOLZ, WEBSPHERE ARCHITECT AGUSTO Primary Care Unavailable ZIEBER, DR THANH García Consulting Unavailable HIGHLANDER, RAMON Tillman Attending Unavailable HIGHLANDER, RAMON Tillman Consulting Unavailable HIGHLANDER, RAMON Tillman Admitting Unavailable AICHHOLZ, WEBSPHERE ARCHITECT AGUSTO Primary Care Unavailable HIGHLANDER, RAMON Tillman Attending Unavailable HIGHLANDER, RAMON Tillman Attending Unavailable HIGHLANDER, PETER D Admitting Unavailable REQUEST, NONE LISTED Primary Care Unavaila ble HIGHLANDER, RAMON D Admitting Unavailable AICHHOLZ, WEBSPHERE ARCHITECT AGUSTO Primary Care Unavailable HIGHLANDER, RAMON Tillman Attending Unavailable HIGHLANDER, RAMON D Admitting Unavailable AICHHOLZ, WEBSPHERE ARCHITECT AGUSTO Primary Care Unavailable HIGHLANDER, RAMON Tillman [...] BATEMAN Consulting Unavailable GURU DAVISON Consulting Unavailable LANDNO IBARRA Consulting Unavailable ROSELIA ., LISA JIMENEZ Consulting Unavailable GEMBUS, CAMDEN Consulting Unavailable SMALLWOOD, REJI FLORES Consulting Unavailable AICHHOLZ, WEBSPHERE ARCHITECT AGUSTO Primary Care Unavailable WEST, DR NUBIA Carlos Consulting Unavailable CAMMIE SEGURA Admitting Unavailable CAMMIE SEGURA Attending Unavailable CAMMIE SEGURA Consulting Unavailable HIGHLANDER, RAMON Tillman Admitting Unavailable AICHHOLZ, WEBSPHERE ARCHITECT AGUSTO Primary Care Unavailable ZIIMTIAZ, DR THANH García Consulting Unavailable WILLYANDER, RAMON Tillman Attending Unavailable HIGHLANDER, RAMON Tillman Consulting Unavailable Fitayden Brigette Unavailable Mapus, Tondra Unavailable Vern TAVERAS, Lisa M Unavailable Agusto Olmstead Primary Care Provider [phone] Agusto Lamb Primary Care Provider Vern TAVERAS, [...] Attending Unavailable Agusto Olmstead Primary Care Provider [phone] Agusto Olmstead Unavailable ABOSUSANNE, TAURUS Attending Unavailable [...] (2 sources) Latex Substance Allergy 0 Rash [facility] (20 sources) Latex; Translations: [Latex] Allergy to substance 0 Eruption of skin (disorder), Rash [facility] Medications Current Medications Medication Drug Class(es) [...] on above: Take 2 tablets by mo [facility] every 6 hours as needed for pain. [...] rain th three times daily as needed. [id number] 200 actuat albuterol 0.09 mg/actuat metered dose [...] x 1 month, then 2x/week for maintainence, [facility], 153, cm, 05/03/23 9:52:00 EDT, Height/Length [...] day(s), # 30 tab(s), Refills(s) 6, Pharmacy: [facility], 153, cm, 09/21/22 8:48:00 EST, Height/Length [...] day(s), # 30 tab(s), Refills(s) 6, Pharmacy: [facility], 153, cm, 09/13/22 13:38:00 EST, Height/Length [...] three times daily. Take 1 capsule by [facility] two times a day for 30 days. 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] Onset: 03-15-2022 03-15-2022 Episodic Other aftercare (1 source) halfway (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 of opiate analgesic; Translations: [halfway (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 of opiate analgesic] Onset: 03-15-2022 [...] Test Name Value Interpretation Reference Range Facility [facility] 03-29-2024 CNNURSE Nurse Visit (UROSMN) AISLINN WHEELER ([id number]) 1960 F Date Time Provider Department 03/29/24 3:00 PM FLUROURODYNAMICS UROSMN During your visit today, we recorded the following information about you: Lorie Burrows RN 03/29/2024 2:18 PM Addendum [facility] URODYNAMICS LAB URODYNAMIC [...] allergy: No Females- Is patient : No 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 Bladder remodeling without VUR. Valsalva voiding with atonic detrusor. Will refer to consider bladder augmentation. 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 The bony and soft tissue structures are within normal. 147 ccs contrast were used to fill the bladder. The bladder outline is irregular/trabeculated and abnormal shaped appearing. There is no ureteral reflux. During the voiding phase there is abnormal bladder neck opening and urethra is not visualized. Bladder emptying is not visualized Read (more content not included)... Normal [facility] CNOVon 03-26-2024 CNOV Office Visit (UROLAV ) AISLINN WHEELER ([id number]) 1960 F Date Time Provider Department 03/26/24 [...] Carmenza Nolen MD 03/26/2024 11:54 AM Signed [facility] FOR FEMALE PELVIC MEDICINE [...] her bladder. Had bladder botox injections at [facility] about 3 mo ago with no improvement. [...] Assessed 03/26/2024 PHYSICAL EXAM: Patient declined a cardiovascular specialist General: No acute distress, well appearing : [...] Signed INFOR (more content not included)... Normal [facility] UA DIP, URINE (POC)on 2023 BILIRUBIN UA (POCT) Negative Negative [facility] CLARITY UA (POCT) Cloudy [facility] COLOR UA (POCT) Light yellow [facility] GLUCOSE UA (POCT) Negative Negative mg/dL [facility] Hemoglobin Ql (U) Trace-intact Abnormal Negative [facility] Interpretation and review of laboratory results Abnormal [facility] KETONE UA (POCT) Negative Negative mg/dL [facility] LEUKOCYTES UA (POCT) Moderate Abnormal Negative [facility] NITRITE UA (POCT) Negative Negative [facility] PH UA (POCT) 6.0 4.5 - 8.0 [facility] Protein Ql (U) 100 mg/dL Abnormal Negative [facility] SPECIFIC GRAVITY UA (POCT) 1.020 1.005 - 1.030 [facility] UROBILINOGEN UA (POCT) 0.2 Normal E.U./dL [facility] Location:[facility], [address] [place], [place], [id number] [place] [address] POINT OF CARE [facility] Glucose Glucometer (BldC) [M ass/Vol]on 03-15-2024 Glucose [Mass/Vol] 164 mg/dL High 65-99 [facility] CNPOlivia 02-26-2024 CNPN Telephone (URFHR) AISLINN WHEELER ([id number]) 1960 F Date Time Provider Department 02/26/24 [...] Encounter Status:Closed by FLAVIO COON on [facility]/26/24 [facility] ([facility]) LIAMAISLINN M ([id number]) 1960 F Date Time Provider Department 02/12/24 [...] Encounter Status:Closed by VONNIE WILDER on 02/12/24 [facility] CREATININE Don 02-01-2024 Creatinine [Mass/Vol] 1.78 mg/dL High 0.58-0.96 [facility] Comment on above: Order Comment: Speci men Type: BLOOD SPECIMENOrdering Facility: [facility] Address: [address] [place] [address] Performed By: #### C RET1 ####[facility] LABCLIA [id number] [place] [address] Creatinine and Glomerular filtration rate.predicted panel (S/P/Bld) 31 mL/min/1.73m??? Low >=60 [facility] Comment on above: Order Comment: Speci men Type: BLOOD SPECIMENOrdering Facility: [facility] Address: [address] [place] [address] Result Comment: Donna mated Glomerular Filtration Rate [...] C RET1 ####[facility] LABCLIA [id number] [place] [address] CT UROGRAM WO/W IVCONon 06- CT UROGRAM WO/W IVCON * * *Final Report* * * DATE OF EXAM: Feb 01 2024 3:26PM [facility] 0560 - CT UROGRAM WO/W IVCON / [...] be communicated with the ordering provider via [employer] staff message or phone message by Imaging [...] any questions regarding this interpretation, please call [phone]. If you are unable to reach us at the number above, please feel free to contact [facility] eRadiology at [phone]. [id number] ACTIONABLE Invalid Interpretation Code [facility] CNOVon 01-12-2024 CNOV Office Visit (URFMOB ) AISLINN WHEELER ([id number]) 1960 F Date Time Provider Department 01/12/24 1:50 PM TAURUS BALLARD During your visit today, we recorded the following information about you: Pulse Blood pressure 75/minute 142/69 Taurus Ballard MD 01/12/2024 2:43 PM Signed [facility] FOLLOW-UP PATIENT HISTORY AND PHYSICAL [...] urogram Will refer to Dr. Tamanna Ruiz APRN.WEBSPHERE ARCHITECT Attending Note I have personally performed a [...] her ki (more content not included)... Normal [facility] UA DIP, URINE (POC)on 2023 BILIRUBIN UA (POCT) Negative Negative [facility] CLARITY UA (POCT) Clear [facility] COLOR UA (POCT) Yellow [facility] GLUCOSE UA (POCT) 100 mg/dL Abnormal Negative [facility] Hemoglobin Ql (U) Trace-intact Abnormal Negative [facility] Interpretation and review of laboratory results Abnormal [facility] KETONE UA (POCT) Negative Negative mg/dL [facility] LEUKOCYTES UA (POCT) Small Abnormal Negative [facility] NITRITE UA (POCT) Negative Negative [facility] PH UA (POCT) 5.5 4.5 - 8.0 [facility] Protein Ql (U) 100 mg/dL Abnormal Negative [facility] SPECIFIC GRAVITY UA (POCT) 1.015 1.005 - 1.030 [facility] UROBILINOGEN UA (POCT) 0.2 Normal E.U./dL [facility] Location:[facility] [place], [place], [address] [place] [address] POINT OF CARE [facility] ED Note-Physicianon 10-30-19 24 ED Note-Physician [id number]#1.00 TIFF Normal [facility] Lab Reportson 10-30-2023 Lab Reports [id number]#1.00T IFF Normal [facility] Lab Reports [id number]#1.00T IFF Normal [facility] Urology Office/Clinic Noteon 10-26-2023 Urology Office/Clinic Note Chief Complaint S/P to Cysto with Botox HPI Staff KML pt. Here for f/u to Botox 100u done 05/22/23. R/s'd appt from 06/28/23. Previous dx: renal cyst, mixed incontinence, feeling of incomplete bladder emptying, glucosuria. Pt was referred to Dr. Ballard at [facility] for evaluation of robotic left cyst [...] Assessment/Plan 1. 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 BURKE [...] procedure. This is confusing bc review of [facility]'s op report shows completely normal events (lidocaine instilled normally, 10 injections of 2ml each) so it's unclear if pt received full 100units or not. Pt called 06/08/23 c/o worsening leakage after Botox. PVR was 174 cc (compared to 142cc prior to botox). KML recommended to start CIC 3x/day for residual, timed voids q2hr, and tight DM control. Pt was in [facility] ER 06/19 and treated for E [...] kidney measuri (more content not included)... Normal [facility] Comment on above: Result Comment: [...] PA-C, URL When: Where: [address] [place] [address] Medications What How Much When Instructions Unchanged [...] including vitamins, herbs, eye drops, creams, and tofr-bda-fidrhfs medicines. ? Any problems you or family [...] no (more content not included)... Normal [facility] Patient Educationon 10-25-19 Patient Education Urology [...] including vitamins, herbs, eye drops, creams, and wxfd-ybc-veuyqpc medicines. ? Any problems you or family [...] tells you to take them. ? Taking undu-dzt-rchnogc medicines, vitamins, herbs, and supplements. General instructions [...] these instructions at home: Medicines ? Take cgmt-uho-msuywfi and prescription medicines only as told by [...] health ca (more content not included)... Normal [facility] Glucose Glucometer (BldC) [M ass/Vol]on 10-13-2023 Glucose [Mass/Vol] 276 mg/dL High 65-99 [facility] Glucose Glucometer (BldC) [M ass/Vol]on 09-29-2023 Glucose [Mass/Vol] 356 mg/dL High 65-99 [facility] CNPNon 09-27-2023 CNPN Telephone (FVPRAD) AISLINN WHEELER ([id number]) 1960 F Date Time Provider Department 09/27/23 DREW BUCKNER FVJEFFRYD During your visit today, we recorded the following information about you: Drew Buckner, Research Coordinator 09/27/2023 2:33 PM Signed IRB# [id number]: Vascular events in patients undergoing same-day nonCardiac surgery - [place] PI: Mary Rojas MD, LETY, FASA. Outcomes Research Department. Anesthesia [place]. [facility]. Aislinn Wheeler was unavailable at the listed phone number. We will attempt to contact the patient through [employer] message. Drew Esqueda Research Coordinator Research Coordinator Allergies As of Date: 09/27/2023 Noted Allergy Reaction LATEX 02/05/2020 2 - Rash Comments: Added based on information entered during case entry, please review and add reactions, type, and severity as needed Date Reviewed: 09/03/2023 Reviewed by: Chuck Kirk RN - Fully Assessed Reason for Visit: Research F/U [018] Prescriptions as of 09/27/2023 - pregabalin (LYRICA) [...] Status:Closed by DREW BUCKNER on 09/27/23 [facility] 09-26-2023 [facility] Telephone (FVPRAD) AISLINN WHEELER ([id number]) 1960 F Date Time Provider Department 09/26/23 DREW BUCKNER FVPRAD During your visit today, we recorded the following information about you: Drew Buckner, Research Coordinator 09/26/2023 3:32 PM Signed IRB# [id number]: Vascular events in patients undergoing same-day nonCardiac surgery - [place] PI: Mary Rojas MD, LETY, FASA. Outcomes Research Department. Anesthesia [place]. [facility]. Aislinn Wheeler was unavailable at the [...] Fully Assessed Reason for Visit: Research F/U [168] Prescriptions as of 09/26/2023 - pregabalin (LYRICA) [...] Encounter Status:Closed by [facility]W [facility]CK[facility]26[facility]23 [facility] HNO ID: [id number] Author: ANTHONY BARROW MD Service: Hospital Medicine [...] Provider Department Center 10/06/2023 1:00 PM US [facility] BRITTANIE [facility] Brittanie 10/06/2023 2:00 PM LAB [facility] [place] [facility] Brittanie 10/11/2023 1:50 PM [facility] ALLERGIES Allergen Reactions Latex Rash Added [...] U-100 INSULIN SUBCUTANEO (more content not included)... [facility] 09-03-2023 [facility] HNO ID: [id number] Author: NICOL MILLIGAN RT(R) Service: Radiology Author [...] RT Michael(R) September 03, 2023 2:57 PM [facility] Basic metabolic 2000 panelon 09-03-2023 Anion gap [Moles/Vol] 10 mmol/L Normal 9-18 [facility] Comment on above: Order Comment: Speci men Type: BLOOD SPECIMEN [facility] Address: [address] [place] [address] Performed By: #### 2 4321-2 #### [facility] CLIA [id number] [address] [place] [address] [place] Calcium [Mass/Vol] 8.8 mg/dL Normal 8.5-10.2 [facility] Comment on above: Order Comment: Speci men Type: BLOOD SPECIMEN [facility] Address: [address] [place] [address] Performed By: #### 2 4321-2 #### [facility] CLIA [id number] [address] [place] [address] [place] Chloride [Moles/Vol] 103 mmol/L Normal 97-105 [facility] Comment on above: Order Comment: Speci men Type: BLOOD SPECIMEN [facility] Address: [address] [place] [address] Performed By: #### 2 4321-2 #### [facility] CLIA [id number] [address] [place] [place] [address] [place] CO2 [Moles/Vol] 23 mmol/L Normal 22-30 [facility] Comment on above: Order Comment: Speci men Type: BLOOD SPECIMEN [facility] Address: [address] [place] [address] Performed By: #### 2 4321-2 #### [facility] CLIA [id number] [address] [place] [address] [place] Creatinine [Mass/Vol] 1.29 mg/dL High 0.58-0.96 [facility] Comment on above: Order Comment: Speci men Type: BLOOD SPECIMEN [facility] Address: [address] [place] [address] Performed By: #### 2 4321-2 #### [facility] CLIA [id number] [address] [place] [address] [place] Creatinine and Glomerular filtration rate.predicted panel (S/P/Bld) 46 mL/min/1.73m??? Low >=60 [facility] Comment on above: Order Comment: [place] Type: BLOOD SPECIMEN [facility] Address: [address] [place] [address] Result Comment: Donna mated Glomerular Filtration Rate [...] GFR. Performed By: #### 2 4321-2 #### [facility] CLIA [id number] [place] [address] [place] Glucose [Mass/Vol] 123 mg/dL High 74-99 [facility] Comment on above: Order Comment: [place] Type: BLOOD SPECIMEN [facility] Address: [address] [place] [address] Result Comment: The [place] [employer] Association (ADA) provides guidance for cutoff [...] Standards of Medical Care in Diabetes 2016, [place] [employer]. Diabetes Care. 2016.39(Suppl 1). Performed By: #### 2 4321-2 #### [facility] CLIA [id number] [address] [place] [address] [place] Potassium [Moles/Vol] 5.0 mmol/L Normal 3.7-5.1 [facility] Comment on above: Order Comment: [place] Type: BLOOD SPECIMEN [facility] Address: [address] [place] [address] Performed By: #### 2 4321-2 #### [facility] CLIA [id number] [address] [place] [address] [place] Sodium [Moles/Vol] 136 mmol/L Normal 136-144 [facility] Comment on above: Order Comment: Speci men Type: BLOOD SPECIMEN [facility] Address: [address] [place] [address] Performed By: #### 2 4321-2 #### [place] [facility] CLIA [id number] [address] [place] [place] [address] [place] Urea nitrogen [Mass/Vol] 22 mg/dL High 7-21 [facility] Comment on above: Order Comment: Speci men Type: BLOOD SPECIMEN Ordering Facility: [facility] Address: [address] [place] [address] Performed By: #### 2 4321-2 #### [facility] CLIA [id number] [address] [place] [address] [place] CBC panel Auto (Bld)on 09-03 Erythrocyte distribution width (RBC) [Ratio] 14.6 % Normal 11.5-15.0 [facility] Comment on above: Order Comment: Speci men Type: BLOOD SPECIMEN Ordering Facility: [facility] Address: [address] [place] [address] Performed By: #### B HB, 92153-8 #### [facility] CLIA [id number] [address] [place] [place] [address] [place] Hematocrit (Bld) [Volume fraction] 28.7 % Low 36.0-46.0 [facility] Comment on above: Order Comment: Speci men Type: BLOOD SPECIMEN Ordering Facility: [facility] Address: [address] [place] [address] Performed By: #### B HB, 93817-2 #### [facility] CLIA [id number] [place] [address] [place] Hemoglobin (Bld) [Mass/Vol] 8.9 g/dL Low 11.5-15.5 [facility] Comment on above: Order Comment: Speci men Type: BLOOD SPECIMEN Ordering Facility: [facility] Address: [address] [place] [address] Performed By: #### B HB, #### [facility] CLIA [id number] [address] [place] [address] MCH (RBC) [Entitic mass] 24.1 pg Low 26.0-34.0 [facility] Comment on above: Order Comment: Speci men Type: BLOOD SPECIMEN Ordering Facility: [facility] Address: [address] [place] [address] Performed By: #### B HB, #### [facility] CLIA [id number] [address] [place] [address] STATES [facility] MCHC (RBC) [Mass/Vol] 31.0 g/dL Normal 30.5-36.0 [facility] Comment on above: Order Comment: Speci men Type: BLOOD SPECIMEN Ordering Facility: [facility] Address: [address] [place] [address] Performed By: #### B HB, #### [facility] CLIA [id number] [address] [place] [address] [place] MCV (RBC) [Entitic vol] 77.6 fL Low 80.0-100.0 [facility] Comment on above: Order Comment: Speci men Type: BLOOD SPECIMEN Ordering Facility: [facility] Address: [address] [place] [address] Performed By: #### B HB, #### [facility] CLIA [id number] [address] [place] [address] Nucleated RBC (Bld) [#/Vol] 10*3/uL Normal <0.01 [facility] Comment on above: Order Comment: Speci men Type: BLOOD SPECIMEN Ordering Facility: [facility] Address: [address] [place] [address] Performed By: #### B HB, #### [facility] CLIA [id number] [address] [place] [address] [place] Platelet mean volume (Bld) [Entitic vol] 10.8 fL Normal 9.0-12.7 [facility] Comment on above: Order Comment: Speci men Type: BLOOD SPECIMEN Ordering Facility: [facility] Address: [address] [place] [address] Performed By: #### B HB, 28515-7 #### [facility] CLIA [id number] [address] [place] [place] [address] [place] Platelets (Bld) [#/Vol] 334 10*3/uL Normal 150-400 [facility] Comment on above: Order Comment: Speci men Type: BLOOD SPECIMEN Ordering Facility: [facility] Address: [address] [place] [address] Performed By: #### [place], [address]-1 #### [facility] CLIA [id number] [address] [place] [address] [place] RBC (Bld) [#/Vol] 3.70 10*6/uL Low 3.90-5.20 [facility] Comment on above: Order Comment: Speci men Type: BLOOD SPECIMEN Ordering Facility: [facility] Address: [address] [place] [address] Performed By: #### [place], 00[address]-7 #### [facility] CLIA [id number] [address] [place] [place] [address] [place] WBC (Bld) [#/Vol] 6.44 10*3/uL Normal 3.70-11.00 [facility] Comment on above: Order Comment: Speci men Type: BLOOD SPECIMEN Ordering Facility: [facility] Address: [address] [place] [address] Performed By: #### B HB, 88858-4 #### [facility] CLIA [id number] [address] [place] [address] [place] FOOT WO [...] NO EVIDENCE OF OSTEOMYELITIS ON THIS EXAMINATION. [employer]: [facility] Transcribe Date/Time: Sep 03 2023 11:22P Dictated by : FINESSE BUTLER MD This examination was interpreted and the report reviewed and electronically signed by: FINESSE BUTLER MD on Sep 03 2023 11:27PM EST [id number] Normal [facility] Basic metabolic 2000 panelon 09-02-2023 Anion gap [Moles/Vol] 9 mmol/L Normal 9-18 [facility] Comment on above: Order Comment: Simonai reinier Type: BLOOD SPECIMEN Ordering Facility: [facility] Address: [address] [place] [address] Performed By: #### B HB, 31026-8 #### [facility] CLIA [id number] [address] [place] [place] [address] [place] Calcium [Mass/Vol] 8.1 mg/dL Low 8.5-10.2 [facility] Comment on above: Order Comment: Simonai men Type: BLOOD SPECIMEN Ordering Facility: [facility] Address: [address] [place] [address] Performed By: #### B HB, 50085-6 #### [facility] CLIA [id number] [address] [place] [address] [place] Chloride [Moles/Vol] 106 mmol/L High 97-105 [facility] Comment on above: Order Comment: Speci men Type: BLOOD SPECIMEN Ordering Facility: [facility] Address: [address] [place] [address] Performed By: #### B HB, #### [facility] CLIA [id number] [address] [place] [address] [place] CO2 [Moles/Vol] 22 mmol/L Normal 22-30 [facility] Comment on above: Order Comment: Speci men Type: BLOOD SPECIMEN Ordering Facility: [facility] Address: [address] [place] [address] Performed By: #### B HB, #### [facility] CLIA [id number] [address] [place] [address] Creatinine [Mass/Vol] 1.30 mg/dL High 0.58-0.96 [facility] Comment on above: Order Comment: Speci men Type: BLOOD SPECIMEN Ordering Facility: [facility] Address: [address] [place] [address] Performed By: #### B HB, #### [facility] CLIA [id number] [address] [place] [address] Creatinine and Glomerular filtration rate.predicted panel (S/P/Bld) 46 mL/min/1.73m??? Low >=60 [facility] Comment on above: Order Comment: Speci men Type: BLOOD SPECIMEN Ordering Facility: [facility] Address: [address] [place] [address] Result Comment: Donna mated Glomerular Filtration Rate [...] actual GFR. Performed By: #### B HB, 58933-7 #### [facility] CLIA [id number] [address] [place] [address] [place] Glucose [Mass/Vol] 192 mg/dL High 74-99 [facility] Comment on above: Order Comment: [place] Type: BLOOD SPECIMEN Ordering Facility: [facility] Address: [address] [place] [address] Result Comment: The [place] [employer] (ADA) provides guidance for cutoff [...] Standards of Medical Care in Diabetes 2016, [place] [employer]. Diabetes Care. 2016.39(Suppl 1). Performed By: #### B HB, 15801-3 #### [facility] CLIA [id number] [address] [place] [address] [place] Potassium [Moles/Vol] 4.9 mmol/L Normal 3.7-5.1 [facility] Comment on above: Order Comment: [place] Type: BLOOD SPECIMEN Ordering Facility: [facility] Address: [address] [place] [address] Performed By: #### B HB, 16683-8 #### [facility] CLIA [id number] [address] [place] [place] [address] [place] Sodium [Moles/Vol] 137 mmol/L Normal 136-144 [facility] Comment on above: Order Comment: [place] Type: BLOOD SPECIMEN Ordering Facility: [facility] Address: [address] [place] [address] Performed By: #### B HB, 64660-1 #### [facility] CLIA [id number] [address] [place] [address] [place] Urea nitrogen [Mass/Vol] 17 mg/dL Normal 7-21 [facility] Comment on above: Order Comment: [place] Type: BLOOD SPECIMEN Ordering Facility: [facility] Address: [address] [place] [address] Performed By: #### B HB, #### [facility] CLIA [id number] [address] [place] [address] [place] CBC panel Auto (Bld)on 09-02 Erythrocyte distribution width (RBC) [Ratio] 14.6 % Normal 11.5-15.0 [facility] Comment on above: Order Comment: Speci men Type: BLOOD SPECIMEN Ordering Facility: [facility] Address: [address] [place] [address] Performed By: #### B HB, 66901-6 #### [facility] CLIA [id number] [address] [place] [address] [place] Hematocrit (Bld) [Volume fraction] 28.4 % Low 36.0-46.0 [facility] Comment on above: Order Comment: Speci men Type: BLOOD SPECIMEN Ordering Facility: [facility] Address: [address] [place] [address] Performed By: #### B HB, #### [facility] CLIA [id number] [address] [place] [address] [place] Hemoglobin (Bld) [Mass/Vol] 8.9 g/dL Low 11.5-15.5 [facility] Comment on above: Order Comment: Speci men Type: BLOOD SPECIMEN Ordering Facility: [facility] Address: [address] [place] [address] Performed By: #### B HB, #### [facility] CLIA [id number] [address] [place] [address] [place] MCH (RBC) [Entitic mass] 24.2 pg Low 26.0-34.0 [facility] Comment on above: Order Comment: Speci men Type: BLOOD SPECIMEN Ordering Facility: [facility] Address: [address] [place] [address] Performed By: #### B HB, 64649-9 #### [facility] CLIA [id number] [address] [place] [address] [place] MCHC (RBC) [Mass/Vol] 31.3 g/dL Normal 30.5-36.0 [facility] Comment on above: Order Comment: Speci men Type: BLOOD SPECIMEN Ordering Facility: [facility] Address: [address] [place] [address] Performed By: #### B HB, #### [facility] CLIA [id number] [address] [place] [address] [place] MCV (RBC) [Entitic vol] 77.2 fL Low 80.0-100.0 [facility] Comment on above: Order Comment: Speci men Type: BLOOD SPECIMEN Ordering Facility: [facility] Address: [address] [place] [address] Performed By: #### B HB, #### [facility] CLIA [id number] [address] [place] [address] [place] Nucleated RBC (Bld) [#/Vol] 10*3/uL Normal <0.01 [facility] Comment on above: Order Comment: Speci men Type: BLOOD SPECIMEN Ordering Facility: [facility] Address: [address] [place] [address] Performed By: #### B HB, #### [facility] CLIA [id number] [address] [place] [address] [place] Platelet mean volume (Bld) [Entitic vol] 10.4 fL Normal 9.0-12.7 [facility] Comment on above: Order Comment: Speci men Type: BLOOD SPECIMEN Ordering Facility: [facility] Address: [address] [place] [address] Performed By: #### B HB, #### [facility] CLIA [id number] [address] [place] [place] [address] [place] Platelets (Bld) [#/Vol] 285 10*3/uL Normal 150-400 [facility] Comment on above: Order Comment: Speci men Type: BLOOD SPECIMEN Ordering Facility: [facility] Address: [address] [place] [address] Performed By: #### B HB, #### [facility] CLIA [id number] [address] [place] [address] [place] RBC (Bld) [#/Vol] 3.68 10*6/uL Low 3.90-5.20 [facility] Comment on above: Order Comment: Speci men Type: BLOOD SPECIMEN Ordering Facility: [facility] Address: [address] [place] [address] Performed By: #### B HB, 40788-6 #### [facility] CLIA [id number] [address] [place] [place] [address] [place] WBC (Bld) [#/Vol] 5.94 10*3/uL Normal 3.70-11.00 [facility] Comment on above: Order Comment: Speci men Type: BLOOD SPECIMEN Ordering Facility: [facility] Address: [address] [place] [address] Performed By: #### B HB, 56018-8 #### [facility] CLIA [id number] [address] [place] [address] [place] Bacteria Ur Culton 4 Bacteria identified Cx Nom (U) CULTURE, URINE: No growth (<1,000 CFU/ml) Normal [facility] Comment on above: Performed By: #### 6 30-4 #### [facility] CLIA [id number] [address] [facility] [address] [id number] [address] [place] Basic metabolic 2000 panelon 09-01-2023 Anion gap [Moles/Vol] 10 mmol/L Normal 9-18 [facility] Comment on above: Order Comment: Speci men Type: BLOOD SPECIMEN Ordering Facility: [facility] Address: [address] [place] [address] Performed By: #### B HB, 15644-8 #### [facility] CLIA [id number] [address] [place] [address] [place] Calcium [Mass/Vol] 7.9 mg/dL Low 8.5-10.2 [facility] Comment on above: Order Comment: Speci men Type: BLOOD SPECIMEN Ordering Facility: [facility] Address: [address] [place] [address] Performed By: #### B HB, 50269-9 #### [facility] CLIA [id number] [address] [place] [place] [address] [place] Chloride [Moles/Vol] 108 mmol/L High 97-105 [facility] Comment on above: Order Comment: Speci men Type: BLOOD SPECIMEN Ordering Facility: [facility] Address: [address] [place] [address] Performed By: #### B HB, 18753-7 #### [facility] CLIA [id number] [address] [place] [place] [address] [place] CO2 [Moles/Vol] 20 mmol/L Low 22-30 [facility] Comment on above: Order Comment: Speci men Type: BLOOD SPECIMEN Ordering Facility: [facility] Address: [address] [place] [address] Performed By: #### B HB, #### [facility] CLIA [id number] [address] [place] [address] [place] Creatinine [Mass/Vol] 1.39 mg/dL High 0.58-0.96 [facility] Comment on above: Order Comment: Speci men Type: BLOOD SPECIMEN Ordering Facility: [facility] Address: [address] [place] [address] Performed By: #### B HB, 90824-2 #### [facility] CLIA [id number] [address] [place] [address] [place] Creatinine and Glomerular filtration rate.predicted panel (S/P/Bld) 42 mL/min/1.73m??? Low >=60 [facility] Comment on above: Order Comment: Speci men Type: BLOOD SPECIMEN Ordering Facility: [facility] Address: [address] [place] [address] Result Comment: Donna mated Glomerular Filtration Rate [...] GFR. Performed By: #### B HB, #### [facility] CLIA [id number] [address] [place] [address] [place] Glucose [Mass/Vol] 74 mg/dL Normal 74-99 [facility] Comment on above: Order Comment: [place] Type: BLOOD SPECIMEN Ordering Facility: [facility] Address: [address] [place] [address] Result Comment: The [place] [employer] (ADA) provides guidance for cutoff [...] Standards of Medical Care in Diabetes 2016, [place] [employer]. Diabetes Care. 2016.39(Suppl 1). Performed By: #### B HB, #### [facility] CLIA [id number] [address] [place] [address] [place] Potassium [Moles/Vol] 4.7 mmol/L Normal 3.7-5.1 [facility] Comment on above: Order Comment: [place] Type: BLOOD SPECIMEN Ordering Facility: [facility] Address: [address] [place] [address] Performed By: #### B HB, #### [facility] CLIA [id number] [address] [place] [place] [address] [place] Sodium [Moles/Vol] 138 mmol/L Normal 136-144 [facility] Comment on above: Order Comment: [place] Type: BLOOD SPECIMEN Ordering Facility: [facility] Address: [address] [place] [address] Performed By: #### B HB, #### [facility] CLIA [id number] [address] [place] [place] [address] [place] Urea nitrogen [Mass/Vol] 25 mg/dL High 7-21 [facility] Comment on above: Order Comment: Speci men Type: BLOOD SPECIMEN Ordering Facility: [facility] Address: [address] [place] [address] Performed By: #### B HB, #### [facility] CLIA [id number] [address] [place] [address] [place] CBC panel Auto (Bld)on 09-01 Erythrocyte distribution width (RBC) [Ratio] 14.7 % Normal 11.5-15.0 [facility] Comment on above: Order Comment: Speci men Type: BLOOD SPECIMEN Ordering Facility: [facility] Address: [address] [place] [address] Performed By: #### B HB, #### [facility] CLIA [id number] [address] [place] [address] [place] Hematocrit (Bld) [Volume fraction] 29.4 % Low 36.0-46.0 [facility] Comment on above: Order Comment: Speci men Type: BLOOD SPECIMEN Ordering Facility: [facility] Address: [address] [place] [address] Performed By: #### B HB, #### [facility] CLIA [id number] [address] [place] [address] [place] Hemoglobin (Bld) [Mass/Vol] 9.1 g/dL Low 11.5-15.5 [facility] Comment on above: Order Comment: Speci men Type: BLOOD SPECIMEN Ordering Facility: [facility] Address: [address] [place] [address] Performed By: #### B HB, #### [facility] CLIA [id number] [address] [place] [address] [place] MCH (RBC) [Entitic mass] 24.4 pg Low 26.0-34.0 [facility] Comment on above: Order Comment: Speci men Type: BLOOD SPECIMEN Ordering Facility: [facility] Address: [address] [place] [address] Performed By: #### B HB, #### [facility] CLIA [id number] [address] [place] [address] [place] MCHC (RBC) [Mass/Vol] 31.0 g/dL Normal 30.5-36.0 [facility] Comment on above: Order Comment: Speci men Type: BLOOD SPECIMEN Ordering Facility: [facility] Address: [address] [place] [address] Performed By: #### B HB, 93450-8 #### [facility] CLIA [id number] [address] [place] [address] [place] MCV (RBC) [Entitic vol] 78.8 fL Low 80.0-100.0 [facility] Comment on above: Order Comment: Speci men Type: BLOOD SPECIMEN Ordering Facility: [facility] Address: [address] [place] [address] Performed By: #### B HB, #### [facility] CLIA [id number] [address] [place] [address] [place] Nucleated RBC (Bld) [#/Vol] 10*3/uL Normal <0.01 [facility] Comment on above: Order Comment: Speci men Type: BLOOD SPECIMEN Ordering Facility: [facility] Address: [address] [place] [address] Performed By: #### B HB, #### [facility] CLIA [id number] [address] [place] [address] [place] Platelet mean volume (Bld) [Entitic vol] 10.8 fL Normal 9.0-12.7 [facility] Comment on above: Order Comment: Speci men Type: BLOOD SPECIMEN Ordering Facility: [facility] Address: [address] [place] [address] Performed By: #### B HB, 24498-7 #### [facility] CLIA [id number] [address] [place] [address] [place] Platelets (Bld) [#/Vol] 275 10*3/uL Normal 150-400 [facility] Comment on above: Order Comment: Speci men Type: BLOOD SPECIMEN Ordering Facility: [facility] Address: [address] [place] [address] Performed By: #### B HB, 68607-4 #### [facility] CLIA [id number] [address] [place] [id number] [place] RBC (Bld) [#/Vol] 3.73 10*6/uL Low 3.90-5.20 [facility] Comment on above: Order Comment: Speci men Type: BLOOD SPECIMEN Ordering Facility: [facility] Address: [address] [place] [address] Performed By: #### B HB, 56339-5 #### [facility] CLIA [id number] [address] [place] [id number] [place] WBC (Bld) [#/Vol] 7.48 10*3/uL Normal 3.70-11.00 [facility] Comment on above: Order Comment: Speci men Type: BLOOD SPECIMEN Ordering Facility: [facility] Address: [address] [place] [address] Performed By: #### B HB, 77811-2 #### [facility] CLIA [id number] [address] [place] [id number] [facility] [place] CONSULTon 09-01-2023 CONSULT HNO ID: [id number] Author: NORMAN ROUSSEAU RN Service: ? Author [...] 2023 TIME: 10:44 AM PAGER/CONTACT #: Normal [facility] Magnesium SerPl-mCncon 09-01 Magnesium [Mass/Vol] 1.5 mg/dL Low 1.7-2.3 [facility] Comment on above: Order Comment: Speci men Type: BLOOD SPECIMEN Ordering Facility: [facility] Address: [address] [place] [address] Performed By: #### B HB, #### [facility] CLIA [id number] [address] [place] [address] [place] URINALYSIS, REFLEX MICROSCOP ICon 09-01-2023 Bacteria LM.HPF (Urine sed) [#/Area] Few Abnormal None Seen [facility] Comment on above: Order Comment: Speci men Type: BLOOD SPECIMEN Ordering Facility: [facility] Address: [address] [place] [address] Performed By: #### B HB, #### [facility] CLIA [id number] [address] [place] [address] [place] Bilirubin Ql (U) Negative Normal Negative [facility] Comment on above: Order Comment: Speci men Type: BLOOD SPECIMEN Ordering Facility: [facility] Address: [address] [place] [address] Performed By: #### B HB, #### [facility] CLIA [id number] [address] [place] [address] [place] Clarity (Unsp spec) Turbid Abnormal Clear [facility] Comment on above: Order Comment: Speci men Type: BLOOD SPECIMEN Ordering Facility: [facility] Address: [address] [place] [address] Performed By: #### B HB, #### [facility] CLIA [id number] [address] [place] [address] [place] Color (U) Light Yellow Normal Yellow [facility] Comment on above: Order Comment: Speci men Type: BLOOD SPECIMEN Ordering Facility: [facility] Address: [address] [place] [address] Performed By: #### B HB, #### [facility] CLIA [id number] [address] [place] [address] [place] Epithelial cells LM.HPF (Urine sed) [#/Area] Few Normal [facility] Comment on above: Order Comment: Speci men Type: BLOOD SPECIMEN Ordering Facility: [facility] Address: [address] [place] [address] Performed By: #### B HB, 96100-8 #### [facility] CLIA [id number] [address] [place] [address] Glucose Test strip (U) [Mass/Vol] Negative Normal Trace, Negative [facility] Comment on above: Order Comment: Speci men Type: BLOOD SPECIMEN Ordering Facility: [facility] Address: [address] [place] [address] Performed By: #### B HB, #### [facility] CLIA [id number] [address] [place] [address] Hemoglobin Ql (U) 1+ Abnormal Negative, Trace [facility] Comment on above: Order Comment: Speci men Type: BLOOD SPECIMEN Ordering Facility: [facility] Address: [address] [place] [address] Performed By: #### B HB, #### [facility] CLIA [id number] [address] [place] [address] Ketones Ql (U) Negative Normal Negative, Trace [facility] Comment on above: Order Comment: Speci men Type: BLOOD SPECIMEN Ordering Facility: [facility] Address: [address] [place] [address] Performed By: #### B HB, #### [facility] CLIA [id number] [address] [place] [address] Leukocyte esterase Test strip Ql (U) 500 Yuan/uL Abnormal Negative, 25 Yuan/uL [facility] Comment on above: Order Comment: Speci men Type: BLOOD SPECIMEN Ordering Facility: [facility] Address: [address] [place] [address] Performed By: #### B HB, #### [facility] CLIA [id number] [address] [place] [address] STATES [facility] Nitrite Ql (U) Negative Normal Negative [facility] Comment on above: Order Comment: Speci men Type: BLOOD SPECIMEN Ordering Facility: [facility] Address: [address] [place] [address] Performed By: #### B HB, #### [facility] CLIA [id number] [address] [place] [address] [place] pH (U) 6.0 [pH] Normal 5.0-8.0 [facility] Comment on above: Order Comment: Speci men Type: BLOOD SPECIMEN Ordering Facility: [facility] Address: [address] [place] [address] Performed By: #### B HB, #### [facility] CLIA [id number] [address] [place] [address] OF [place] Protein (U) [Mass/Vol] 1+ Abnormal Trace, Negative [facility] Comment on above: Order Comment: Speci men Type: BLOOD SPECIMEN Ordering Facility: [facility] Address: [address] [place] [address] Performed By: #### B HB, #### [facility] CLIA [id number] [address] [place] [address] [place] RBC LM.HPF (Urine sed) [#/Area] /[HPF] Abnormal 0-3 /HPF [facility] Comment on above: Order Comment: Speci men Type: BLOOD SPECIMEN Ordering Facility: [facility] Address: [address] [place] [address] Performed By: #### B HB, #### [facility] CLIA [id number] [address] [place] [address] [place] Specific gravity (U) [Rel density] 1.011 Normal 1.005-1.030 [facility] Comment on above: Order Comment: Speci men Type: BLOOD SPECIMEN Ordering Facility: [facility] Address: [address] [place] [address] Performed By: #### B HB, #### [facility] CLIA [id number] [address] [place] [address] [place] Urobilinogen Ql (U) Negative Normal Negative [facility] Comment on above: Order Comment: Speci men Type: BLOOD SPECIMEN Ordering Facility: [facility] Address: [address] [place] [address] Performed By: #### B HB, #### [facility] CLIA [id number] [address] [place], [place] [address] [place] WBC LM.HPF (Urine sed) [#/Area] /[HPF] Abnormal 0-5 /HPF [facility] Comment on above: Order Comment: Speci men Type: BLOOD SPECIMEN Ordering Facility: [facility] Address: [address] [place] [address] Performed By: #### B , 57706-5 #### [facility] CLIA [id number] [address] [place] [address] [place] ALLIED HEALTHon 08-31-2023 ALLIED HEALTH HNO ID: [id number] Author: LAKISHA LITTLE RT(R) Service: ? Author [...] Chriss(R) August 31, 2023 4:44 AM Normal [facility] Bacteria Bld Culton 08-31-19 24 Bacteria identified Cx Nom (Bld) CULTURE, BLOOD: No growth 5 days Normal [facility] Comment on above: Performed By: #### 6 00-7 ####[facility] [id number] [address] STATES [place] Bacteria Ur Culton [...] technique or straight catheterization for???urine???collectio n. Normal [facility] Comment on above: Performed By: #### 6 30-4 #### [facility] CLIA [id number] [address] [facility] [id number] [address] [place] CBC W Auto Differential pane l (Bld)on 08-31-2023 Basophils (Bld) [#/Vol] 0.03 10*3/uL Normal <0.11 [facility] Comment on above: Order Comment: Speci men Type: BLOOD SPECIMEN Ordering Facility: [facility] Address: [address] [place] [address] Performed By: #### B HB, #### [facility] CLIA [id number] [place] [address] [place] Basophils/100 WBC (Bld) 0.3 % Normal [facility] Comment on above: Order Comment: Speci men Type: BLOOD SPECIMEN Ordering Facility: [facility] Address: [address] [place] [address] Performed By: #### B HB, #### [facility] CLIA [id number] [address] [place] [place] [address] [place] Differential cell count method Nom (Bld) Auto Normal [facility] Comment on above: Order Comment: Speci men Type: BLOOD SPECIMEN Ordering Facility: [facility] Address: [address] [place] [address] Performed By: #### B HB, #### [facility] CLIA [id number] [address] [place] [place] [address] [place] Eosinophils (Bld) [#/Vol] 10*3/uL Normal <0.46 [facility] Comment on above: Order Comment: Speci men Type: BLOOD SPECIMEN Ordering Facility: [facility] Address: [address] [place] [address] Performed By: #### B HB, #### [facility] CLIA [id number] [address] [place] [place] [address] [place] Eosinophils/100 WBC (Bld) 0.1 % Normal [facility] Comment on above: Order Comment: Speci men Type: BLOOD SPECIMEN Ordering Facility: [facility] Address: [address] [place] [address] Performed By: #### B HB, #### [facility] CLIA [id number] [address] [place] [address] [place] Erythrocyte distribution width (RBC) [Ratio] 14.5 % Normal 11.5-15.0 [facility] Comment on above: Order Comment: Speci men Type: BLOOD SPECIMEN Ordering Facility: [facility] Address: [address] [place] [address] Performed By: #### B HB, #### [facility] CLIA [id number] [address] [place] [place] [address] [place] Hematocrit (Bld) [Volume fraction] 31.5 % Low 36.0-46.0 [facility] Comment on above: Order Comment: Speci men Type: BLOOD SPECIMEN Ordering Facility: [facility] Address: [address] [place] [address] Performed By: #### B HB, #### [facility] CLIA [id number] [address] [place] [place] [address] [place] Hemoglobin (Bld) [Mass/Vol] 10.0 g/dL Low 11.5-15.5 [facility] Comment on above: Order Comment: Speci men Type: BLOOD SPECIMEN Ordering Facility: [facility] Address: [address] [place] [address] Performed By: #### B HB, #### [facility] CLIA [id number] [address] [place] [place] [address] [place] Immature granulocytes (Bld) [#/Vol] 0.06 10*3/uL Normal <0.10 [facility] Comment on above: Order Comment: Speci men Type: BLOOD SPECIMEN Ordering Facility: [facility] Address: [address] [place] [address] Performed By: #### B HB, #### [facility] CLIA [id number] [address] [place] [place] [address] [place] Immature granulocytes/100 WBC (Bld) 0.7 % Normal [facility] Comment on above: Order Comment: Speci men Type: BLOOD SPECIMEN Ordering Facility: [facility] Address: [address] [place] [address] Performed By: #### B HB, #### [facility] CLIA [id number] [address] [place] [address] [place] Lymphocytes (Bld) [#/Vol] 1.67 10*3/uL Normal 1.00-4.00 [facility] Comment on above: Order Comment: Speci men Type: BLOOD SPECIMEN Ordering Facility: [facility] Address: [address] [place] [address] Performed By: #### B HB, #### [facility] CLIA [id number] [address] [place] [address] [place] Lymphocytes/100 WBC (Bld) 18.8 % Normal [facility] Comment on above: Order Comment: Speci men Type: BLOOD SPECIMEN Ordering Facility: [facility] Address: [address] [place] [address] Performed By: #### B HB, #### [facility] CLIA [id number] [address] [place] [place] [address] [place] MCH (RBC) [Entitic mass] 24.5 pg Low 26.0-34.0 [facility] Comment on above: Order Comment: Speci men Type: BLOOD SPECIMEN Ordering Facility: [facility] Address: [address] [place] [address] Performed By: #### B HB, 40794-4 #### [facility] CLIA [id number] [address] [place] [place] [address] [place] MCHC (RBC) [Mass/Vol] 31.7 g/dL Normal 30.5-36.0 [facility] Comment on above: Order Comment: Speci men Type: BLOOD SPECIMEN Ordering Facility: [facility] Address: [address] [place] [address] Performed By: #### B HB, #### [facility] CLIA [id number] [address] [place] [place] [address] [place] MCV (RBC) [Entitic vol] 77.2 fL Low 80.0-100.0 [facility] Comment on above: Order Comment: Speci men Type: BLOOD SPECIMEN Ordering Facility: [facility] Address: [address] [place] [address] Performed By: #### B HB, #### [facility] CLIA [id number] [address] [place] [address] [place] Monocytes (Bld) [#/Vol] 0.71 10*3/uL Normal <0.87 [facility] Comment on above: Order Comment: Speci men Type: BLOOD SPECIMEN Ordering Facility: [facility] Address: [address] [place] [address] Performed By: #### B HB, #### [facility] CLIA [id number] [address] [place] [place] [address] [place] Monocytes/100 WBC (Bld) 8.0 % Normal [facility] Comment on above: Order Comment: Speci men Type: BLOOD SPECIMEN Ordering Facility: [facility] Address: [address] [place] [address] Performed By: #### B HB, #### [facility] CLIA [id number] [address] [place] [address] [place] Neutrophils (Bld) [#/Vol] 6.39 10*3/uL Normal 1.45-7.50 [facility] Comment on above: Order Comment: Speci men Type: BLOOD SPECIMEN Ordering Facility: [facility] Address: [address] [place] [address] Performed By: #### B HB, #### [facility] CLIA [id number] [address] [place] [address] [place] Neutrophils/100 WBC (Bld) 72.1 % Normal [facility] Comment on above: Order Comment: Speci men Type: BLOOD SPECIMEN Ordering Facility: [facility] Address: [address] [place] [address] Performed By: #### B HB, #### [facility] CLIA [id number] [address] [place] [address] [place] Nucleated RBC (Bld) [#/Vol] 10*3/uL Normal <0.01 [facility] Comment on above: Order Comment: Speci men Type: BLOOD SPECIMEN Ordering Facility: [facility] Address: [address] [place] [address] Performed By: #### B HB, #### [facility] CLIA [id number] [address] [place] [address] [place] Nucleated RBC/100 WBC (Bld) [Ratio] 0.0 /100 WBC Normal [facility] Comment on above: Order Comment: Speci men Type: BLOOD SPECIMEN Ordering Facility: [facility] Address: [address] [place] [address] Performed By: #### B HB, #### [facility] CLIA [id number] [address] [place] [address] [place] Platelet mean volume (Bld) [Entitic vol] 11.3 fL Normal 9.0-12.7 [facility] Comment on above: Order Comment: Speci men Type: BLOOD SPECIMEN Ordering Facility: [facility] Address: [address] [place] [address] Performed By: #### B HB, #### [facility] CLIA [id number] [address] [place] [address] [place] Platelets (Bld) [#/Vol] 316 10*3/uL Normal 150-400 [facility] Comment on above: Order Comment: Speci men Type: BLOOD SPECIMEN Ordering Facility: [facility] Address: [address] [place] [address] Performed By: #### B HB, #### [facility] CLIA [id number] [address] [place] [address] [place] RBC (Bld) [#/Vol] 4.08 10*6/uL Normal 3.90-5.20 [facility] Comment on above: Order Comment: Speci men Type: BLOOD SPECIMEN Ordering Facility: [facility] Address: [address] [place] [address] Performed By: #### B HB, #### [facility] CLIA [id number] [address] [place] [place] [address] [place] WBC (Bld) [#/Vol] 8.87 10*3/uL Normal 3.70-11.00 [facility] Comment on above: Order Comment: Speci men Type: BLOOD SPECIMEN Ordering Facility: [facility] Address: [address] [place] [address] Performed By: #### B HB, #### [facility] CLIA [id number] [address] [place] [place] [address] [place] Comprehensive metabolic 2000 panelon 08-31-2023 Albumin [Mass/Vol] 3.7 g/dL Low 3.9-4.9 [facility] Comment on above: Order Comment: Speci men Type: BLOOD SPECIMEN Ordering Facility: [facility] Address: [address] [place] [address] Performed By: #### B HB, #### [facility] CLIA [id number] [address] [place] [place] [address] [place] ALP [Catalytic activity/Vol] 99 U/L Normal 34-123 [facility] Comment on above: Order Comment: Speci men Type: BLOOD SPECIMEN Ordering Facility: [facility] Address: [address] [place] [address] Performed By: #### B HB, #### [facility] CLIA [id number] [address] [place] [address] [place] ALT [Catalytic activity/Vol] U/L Low 7-38 [facility] Comment on above: Order Comment: Speci men Type: BLOOD SPECIMEN Ordering Facility: [facility] Address: [address] [place] [address] Performed By: #### B HB, 79406-1 #### [facility] CLIA [id number] [address] [place] [place] [address] [place] Anion gap [Moles/Vol] 12 mmol/L Normal 9-18 [facility] Comment on above: Order Comment: Speci men Type: BLOOD SPECIMEN Ordering Facility: [facility] Address: [address] [place] [address] Performed By: #### B HB, #### [facility] CLIA [id number] [address] [place] [place] [address] [place] AST [Catalytic activity/Vol] 7 U/L Low 13-35 [facility] Comment on above: Order Comment: Speci men Type: BLOOD SPECIMEN Ordering Facility: [facility] Address: [address] [place] [address] Performed By: #### B HB, #### [facility] CLIA [id number] [address] [place] [address] [place] Bilirubin [Mass/Vol] 0.3 mg/dL Normal 0.2-1.3 [facility] Comment on above: Order Comment: Speci men Type: BLOOD SPECIMEN Ordering Facility: [facility] Address: [address] [place] [address] Performed By: #### B HB, #### [facility] CLIA [id number] [address] [place] [address] [place] Calcium [Mass/Vol] 8.7 mg/dL Normal 8.5-10.2 [facility] Comment on above: Order Comment: Speci men Type: BLOOD SPECIMEN Ordering Facility: [facility] Address: [address] [place] [address] Performed By: #### B HB, #### [facility] CLIA [id number] [address] [place] [place] [address] [place] Chloride [Moles/Vol] 99 mmol/L Normal 97-105 [facility] Comment on above: Order Comment: Speci men Type: BLOOD SPECIMEN Ordering Facility: [facility] Address: [address] [place] [address] Performed By: #### B HB, #### [facility] CLIA [id number] [address] [place] [address] [place] CO2 [Moles/Vol] 19 mmol/L Low 22-30 [facility] Comment on above: Order Comment: Simonai reinier Type: BLOOD SPECIMEN Ordering Facility: [facility] Address: [address] [place] [address] Performed By: #### B HB, 39399-8 #### [facility] CLIA [id number] [address] [place] [place] [address] [place] Creatinine [Mass/Vol] 2.15 mg/dL High 0.58-0.96 [facility] Comment on above: Order Comment: Simonai men Type: BLOOD SPECIMEN Ordering Facility: [facility] Address: [address] [place] [address] Performed By: #### B HB, 59210-7 #### [facility] CLIA [id number] [address] [place] [address] OF [facility] Creatinine and Glomerular filtration rate.predicted panel (S/P/Bld) 25 mL/min/1.73m??? Low >=60 [facility] Comment on above: Order Comment: Speci men Type: BLOOD SPECIMEN Ordering Facility: [facility] Address: [address] [place] [address] Result Comment: Donna mated Glomerular Filtration Rate [...] actual GFR. Performed By: #### B HB, 49548-6 #### [facility] CLIA [id number] [address] [place] [address] [place] Glucose [Mass/Vol] 428 mg/dL High 74-99 [facility] Comment on above: Order Comment: Simonai men Type: BLOOD SPECIMEN Ordering Facility: [facility] Address: [address] [place] [address] Result Comment: The [place] [employer] (ADA) provides guidance for cutoff [...] Standards of Medical Care in Diabetes 2016, [place] [employer]. Diabetes Care. 2016.39(Suppl 1). Performed By: #### B HB, 06854-3 #### [facility] CLIA [id number] [address] [place] [place] [address] [place] Potassium [Moles/Vol] 5.2 mmol/L High 3.7-5.1 [facility] Comment on above: Order Comment: [place] Type: BLOOD SPECIMEN Ordering Facility: [facility] Address: [address] [place] [address] Performed By: #### B HB, 45668-8 #### [facility] CLIA [id number] [address] [place] [place] [address] [place] Protein [Mass/Vol] 9.1 g/dL High 6.3-8.0 [facility] Comment on above: Order Comment: [place] Type: BLOOD SPECIMEN Ordering Facility: [facility] Address: [address] [place] [address] Performed By: #### B HB, 08589-9 #### [facility] CLIA [id number] [address] [place] [place] [address] [place] Sodium [Moles/Vol] 130 mmol/L Low 136-144 [facility] Comment on above: Order Comment: [place] Type: BLOOD SPECIMEN Ordering Facility: [facility] Address: [address] [place] [address] Performed By: #### B HB, 28172-5 #### [facility] CLIA [id number] [address] [place] [place] [address] [place] Urea nitrogen [Mass/Vol] 39 mg/dL High 7-21 [facility] Comment on above: Order Comment: Speci men Type: BLOOD SPECIMEN Ordering Facility: [facility] Address: [address] [place], [place] [address] [address] Performed By: #### B , 77347-9 #### [facility] CLIA [id number] [address] [place] [address] [place] ECG COMPLETEon 08-31-2023 ECG COMPLETE Ventricular Rate : 7 1 BPM Atrial Rate : 71 BPM P-R Interval : 166 ms QRS Duration : 80 ms Q-T Interval : 396 ms QTC Calculation(Bazett) : 431 ms Calculated P [place] : 82 degrees Calculated R [place] : 71 degrees Calculated T [place] : 48 degrees Sinus rhythm Normal ECG NO STEMI. 0752 Confirmed by MD DE LEON MICHAEL ([id number]), graphic editor THERESA SEAY ([id number]) on 08/31/2023 1:24:15 PM NAME : LIAMAISLINN PID : [id number] : 1960 Gender : Female Race : ORD : [id number] Procedure Date : Aug 31 2023 07:16:42 Edit Date : Aug 31 2023 13:24:16 Diagnosis: Sinus rhythm Normal ECG NO STEMI. 0752 Confirmed by MD DE LEON MICHAEL ([id number]), graphic editor THERESA SEAY ([id number]) on 08/31/2023 1:24:15 PM Test Reason : Chest Pain Location : 402 : FVED fved05 Overread By : MD DE LEON MICHAEL Edited By : THERESA SEAY Referred By : , Acquired by : [id number], Normal [facility] ECG COMPLETE Ventricular Rate : 8 8 BPM Atrial Rate : 88 BPM P-R Interval : 153 ms QRS Duration : 78 ms Q-T Interval : 370 ms QTC Calculation(Bazett) : 448 ms Calculated P [place] : 85 degrees Calculated R [place] : 69 degrees Calculated T [place] : 62 degrees Sinus rhythm Normal ECG NO STEMI. 0604 Confirmed by KASIE SANDOVAL MD ([id number]), graphic editor THERESA SEAY ([id number]) on 08/31/2023 1:02:55 PM NAME : LIAMAISLINN PID : [id number] : 1960 Gender : Female Race : ORD : [id number] Procedure Date : Aug 31 2023 04:17:52 Edit Date : Aug 31 2023 13:02:57 Diagnosis: Sinus rhythm Normal ECG NO STEMI. 0604 Confirmed by KASIE SANDOVAL MD ([id number]), graphic editor THERESA SEAY ([id number]) on 08/31/2023 1:02:55 PM Test Reason : Arrhythmia Location : 402 : FVED fved05 Overread By : KASIE SANDOVAL MD Edited By : THERESA SEAY Referred By : , Acquired by : [id number], Normal [facility] ED PROV NOTEon 08-31-2023 ED PROV NOTE HNO ID: [id number] Author: RAYNA RHODES PA-C Service: Emergency Medicine Author Type: Physician [employer] Supervisor Type: ED Provider Notes Filed: 08/31/2023 08:06 [...] left foot. Pt states she saw her manager market research and was directed to come to the [...] rarely occurring (more content not included)... Normal [facility] FLUABV+SARS-CoV-2+RSV Pnl Re sp ADRIEL+probeon 08-31-2023 FLUABV+SARS-CoV-2+RS V Pnl Resp ADRIEL+probe COVID 19 RESULT: Not detected The method used is RT-PCR or an equivalent NAAT method. Reference Range(the expected result in uninfected individuals): Not detected INFLUENZA A PCR: Not detected INFLUENZA B PCR: Not detected RSV PCR: Not detected Normal [facility] Comment on above: Performed By: #### 9 5941-1 ####[facility] [id number] [place] [address] [place] Gas and Carbon monoxide pane l (BldV)on 08-31-2023 BASE DEFICIT, VENOUS -5 mmol/L Low -2-0 [facility] Comment on above: Order Comment: Speci men Type: VENOUS BLOOD SPECIMEN Ordering Facility: [facility] Address: [address] [place] [address] Performed By: #### 2 4344-4 #### [facility] CLIA [id number] [address] [place] [address] [place] Body temperature 100.04 [degF] Normal [facility] Comment on above: Order Comment: Speci men Type: VENOUS BLOOD SPECIMEN Ordering Facility: [facility] Address: [address] [place] [address] Performed By: #### 2 4344-4 #### [facility] CLIA [id number] [address] [place] [address] [place] Calcium.ionized (Bld) [Mass/Vol] 1.08 mmol/L Normal 1.08-1.30 [facility] Comment on above: Order Comment: Speci men Type: VENOUS BLOOD SPECIMEN Ordering Facility: [facility] Address: [address] [place] [address] Performed By: #### 2 4344-4 #### [facility] CLIA [id number] [address] [place] [address] [place] Calcium.ionized adjusted to pH 7.4 (BldA) [Moles/Vol] 1.06 mmol/L Low 1.08-1.30 [facility] Comment on above: Order Comment: Speci men Type: VENOUS BLOOD SPECIMEN Ordering Facility: [facility] Address: [address] [place] [address] Performed By: #### 2 4344-4 #### [facility] CLIA [id number] [address] [place] [address] [place] Carboxyhemoglobin (BldV) [Mass fraction] 3.8 % High 0.0-2.0 [facility] Comment on above: Order Comment: Speci men Type: VENOUS BLOOD SPECIMEN Ordering Facility: [facility] Address: [address] [place] [address] Result Comment: Carb oxyhemoglobin Reference Range for Smokers: 2.0-8.0% Performed By: #### 2 4344-4 #### [facility] CLIA [id number] [address] [place] [address] [place] Chloride [Moles/Vol] 106 mmol/L High 97-105 [facility] Comment on above: Order Comment: Speci men Type: VENOUS BLOOD SPECIMEN Ordering Facility: [facility] Address: [address] [place] [address] Performed By: #### 2 4344-4 #### [facility] CLIA [id number] [address] [place] [place] [address] [place] CO2 (BldV) [Partial pressure] 35 mm[Hg] Low 42-55 [facility] Comment on above: Order Comment: Speci men Type: VENOUS BLOOD SPECIMEN Ordering Facility: [facility] Address: [address] [place] [address] Performed By: #### 2 4344-4 #### [facility] CLIA [id number] [address] [place] [address] [place] CO2 adjusted to patient's actual temperature (BldV) [Partial pressure] Normal [facility] Comment on above: Order Comment: Speci men Type: VENOUS BLOOD SPECIMEN Ordering Facility: [facility] Address: [address] [place] [address] Performed By: #### 2 4344-4 #### [facility] CLIA [id number] [address] [place] [place] [address] [place] Glucose [Mass/Vol] 460 mg/dL High 60-105 [facility] [facility] Comment on above: Order Comment: Speci men Type: VENOUS BLOOD SPECIMEN Ordering Facility: [facility] Address: [address] [place] [address] Performed By: #### 2 4344-4 #### [facility] CLIA [id number] [address] [place] [place] [address] [place] HCO3 (Bld) [Moles/Vol] 19 mmol/L Low 24-28 [facility] Comment on above: Order Comment: Speci men Type: VENOUS BLOOD SPECIMEN Ordering Facility: [facility] Address: [address] [place] [address] Performed By: #### 2 4344-4 #### [facility] CLIA [id number] [address] [place] [address] [place] Hematocrit (Bld) [Volume fraction] 29.7 % Low 36.0-46.0 [facility] Comment on above: Order Comment: Speci men Type: VENOUS BLOOD SPECIMEN Ordering Facility: [facility] Address: [address] [place] [address] Performed By: #### 2 4344-4 #### [facility] CLIA [id number] [address] [place] [address] [place] Hemoglobin (Bld) [Mass/Vol] 9.6 g/dL Low 11.5-15.5 [facility] Comment on above: Order Comment: Speci men Type: VENOUS BLOOD SPECIMEN Ordering Facility: [facility] Address: [address] [place] [address] Performed By: #### 2 4344-4 #### [facility] CLIA [id number] [address] [place] [address] [place] Lactate [Moles/Vol] 1.1 mmol/L Normal 0.5-2.2 [facility] Comment on above: Order Comment: Speci men Type: VENOUS BLOOD SPECIMEN Ordering Facility: [facility] Address: [address] [place] [address] Performed By: #### 2 4344-4 #### [facility] IA [id number] [address] [place] [address] [place] Methemoglobin (Bld) [Mass fraction] 1.1 % Normal 0.0-1.5 [facility] Comment on above: Order Comment: Speci men Type: VENOUS BLOOD SPECIMEN Ordering Facility: [facility] Address: [address] [place] [address] Performed By: #### 2 4344-4 #### [facility] CLIA [id number] [address] [place] [address] [place] O2 THERAPY RA=Room Air Normal [facility] Comment on above: Order Comment: Speci men Type: VENOUS BLOOD SPECIMEN Ordering Facility: [facility] Address: [address] [place] [address] Performed By: #### 2 4344-4 #### [facility] CLIA [id number] [address] [place] [address] [place] Oxygen (BldV) [Partial pressure] 118 mm[Hg] High 35-45 [facility] Comment on above: Order Comment: Speci men Type: VENOUS BLOOD SPECIMEN Ordering Facility: [facility] Address: [address] [place] [address] Performed By: #### 2 4344-4 #### [facility] CLIA [id number] [address] [place] [address] [place] Oxygen adjusted to patient's actual temperature (BldV) [Partial pressure] Normal [facility] Comment on above: Order Comment: Speci men Type: VENOUS BLOOD SPECIMEN Ordering Facility: [facility] Address: [address] [place] [address] Performed By: #### 2 4344-4 #### [facility] CLIA [id number] [address] [place] [place] [address] [place] Oxygen saturation in Venous blood 99 % High 60-85 [facility] Comment on above: Order Comment: Speci men Type: VENOUS BLOOD SPECIMEN Ordering Facility: [facility] Address: [address] [place] [address] Performed By: #### 2 4344-4 #### [facility] CLIA [id number] [address] [place] [address] [place] Oxyhemoglobin (BldV) [Mass fraction] 94 % High 60-85 [facility] Comment on above: Order Comment: Speci men Type: VENOUS BLOOD SPECIMEN Ordering Facility: [facility] Address: [address] [place] [address] Performed By: #### 2 4344-4 #### [facility] CLIA [id number] [address] [place] [address] [place] pH (BldV) 7.37 [pH] Normal 7.32-7.42 [facility] Comment on above: Order Comment: Speci men Type: VENOUS BLOOD SPECIMEN Ordering Facility: [facility] Address: [address] [place] [address] Performed By: #### 2 4344-4 #### [facility] CLIA [id number] [address] [place] [address] [place] pH adjusted to patient's actual temperature (BldV) Normal [facility] Comment on above: Order Comment: Speci men Type: VENOUS BLOOD SPECIMEN Ordering Facility: [facility] Address: [address] [place] [address] Performed By: #### 2 4344-4 #### [facility] CLIA [id number] [address] [place] [address] [place] Potassium [Moles/Vol] 5.3 mmol/L High 3.5-5.0 [facility] Comment on above: Order Comment: Speci men Type: VENOUS BLOOD SPECIMEN Ordering Facility: [facility] Address: [address] [place] [address] Performed By: #### 2 4344-4 #### [facility] CLIA [id number] [place] [address] [place] Sodium [Moles/Vol] 133 mmol/L Low 136-144 [facility] Comment on above: Order Comment: Speci men Type: VENOUS BLOOD SPECIMEN Ordering Facility: [facility] Address: [address] [place] [address] Performed By: #### 2 4344-4 #### [facility] CLIA [id number] [address] [place] [address] [place] HISTORY PHYSICALon HISTORY PHYSICAL HNO ID: [id number] Author: ANTHONY BARROW MD Service: Hospital Medicine [...] left foot ulcer that patient was seen manager [employer] as outpatient for and advised her to [...] to monitor. Medication and Non-Pharmacologic VTE Prophylaxis/Anticoagula [facility] 08/31/23 1115 activity - mobilize patient ([place]) VTE Prophylaxis: VTE prophylaxis appropriate SIGNATURE: Anthony Barrow MD PATIENT NAME: Aislinn Wheeler DATE: August 31, 2023 TIME: 11:03 AM PAGER/CONTACT #: Normal [facility] KETONES/ACETONE/BHBon 2023 Beta hydroxybutyrate [Moles/Vol] 0.50 mmol/L High <0.28 [facility] Comment on above: Order Comment: [place] Type: BLOOD SPECIMEN Ordering Facility: [facility] Address: [address] [place] [address] Performed By: #### B HB, 73798-7 #### [facility] CLIA [id number] [address] [place] [address] [place] POTASSIUM BLDon 08-31-2023 Potassium [Moles/Vol] 4.6 mmol/L Normal 3.7-5.1 [facility] Comment on above: Order Comment: [place] Type: BLOOD SPECIMEN Ordering Facility: [facility] Address: [address] [place] [address] Performed By: #### B HB, #### [facility] CLIA [id number] [address] [place] [address] [place] SEPSIS LACTATEon 08-31-2023 Lactate [Moles/Vol] 1.2 mmol/L Normal 0.0-2.0 [facility] Comment on above: Order Comment: Speci men Type: BLOOD SPECIMEN Ordering Facility: [facility] Address: [address] [place] [address] Performed By: #### B HB, #### [facility] CLIA [id number] [address] [place] [address] [place] Urinalysis complete panel (U )on 08-31-2023 Bacteria LM.HPF (Urine sed) [#/Area] Many Abnormal None Seen [facility] Comment on above: Order Comment: Speci men Type: BLOOD SPECIMEN Ordering Facility: [facility] Address: [address] [place] [address] Performed By: #### B HB, #### [facility] CLIA [id number] [address] [place] [address] [place] Bilirubin Ql (U) Negative Normal Negative [facility] Comment on above: Order Comment: Speci men Type: BLOOD SPECIMEN Ordering Facility: [facility] Address: [address] [place] [address] Performed By: #### Kimberlyn HB, #### [facility] CLIA [id number] [address] [place] [address] [place] Clarity (Unsp spec) Turbid Abnormal Clear [facility] Comment on above: Order Comment: Speci men Type: BLOOD SPECIMEN Ordering Facility: [facility] Address: [address] [place] [address] Performed By: #### B HB, #### [facility] CLIA [id number] [address] [place] [address] Color (U) Light Yellow Normal Yellow [facility] Comment on above: Order Comment: Speci men Type: BLOOD SPECIMEN Ordering Facility: [facility] Address: [address] [place] [address] Performed By: #### B HB, #### [facility] CLIA [id number] [address] [place] [address] Glucose Test strip (U) [Mass/Vol] 4+ Abnormal Trace, Negative [facility] Comment on above: Order Comment: Speci men Type: BLOOD SPECIMEN Ordering Facility: [facility] Address: [address] [place] [address] Performed By: #### B HB, #### [facility] CLIA [id number] [address] [place] [place] [address] [place] Hemoglobin Ql (U) Trace Normal Negative, Trace [facility] Comment on above: Order Comment: Speci men Type: BLOOD SPECIMEN Ordering Facility: [facility] Address: [address] [place] [address] Performed By: #### B HB, #### [facility] CLIA [id number] [address] [place] [address] [place] Ketones Ql (U) Negative Normal Negative, Trace [facility] Comment on above: Order Comment: Speci men Type: BLOOD SPECIMEN Ordering Facility: [facility] Address: [address] [place] [address] Performed By: #### B HB, #### [facility] CLIA [id number] [address] [place] [address] Leukocyte esterase Test strip Ql (U) 500 Yuan/uL Abnormal Negative, 25 Yuan/uL [facility] Comment on above: Order Comment: Speci men Type: BLOOD SPECIMEN Ordering Facility: [facility] Address: [address] [place] [address] Performed By: #### B HB, #### [facility] CLIA [id number] [address] [place] [address] [place] Nitrite Ql (U) Negative Normal Negative [facility] Comment on above: Order Comment: Speci men Type: BLOOD SPECIMEN Ordering Facility: [facility] Address: [address] [place] [address] Performed By: #### B HB, #### [facility] CLIA [id number] [address] [place] [place] [address] [place] pH (U) 6.0 [pH] Normal 5.0-8.0 [facility] Comment on above: Order Comment: Speci men Type: BLOOD SPECIMEN Ordering Facility: [facility] Address: [address] [place] [address] Performed By: #### B HB, #### [facility] CLIA [id number] [address] [place] [address] [place] Protein (U) [Mass/Vol] 1+ Abnormal Trace, Negative [facility] Comment on above: Order Comment: Speci men Type: BLOOD SPECIMEN Ordering Facility: [facility] Address: [address] [place] [address] Performed By: #### Kimberlyn HB, #### [facility] CLIA [id number] [address] [place] [place] [address] [place] RBC LM.HPF (Urine sed) [#/Area] 3-5 /HPF Abnormal 0-3 /HPF [facility] Comment on above: Order Comment: Speci men Type: BLOOD SPECIMEN Ordering Facility: [facility] Address: [address] [place] [address] Performed By: #### B HB, #### [facility] CLIA [id number] [address] [place] [address] [place] Specific gravity (U) [Rel density] 1.017 Normal 1.005-1.030 [facility] Comment on above: Order Comment: Speci men Type: BLOOD SPECIMEN Ordering Facility: [facility] Address: [address] [place] [address] Performed By: #### B HB, #### [facility] CLIA [id number] [address] [place] [address] [place] Urobilinogen Ql (U) Negative Normal Negative [facility] Comment on above: Order Comment: Speci men Type: BLOOD SPECIMEN Ordering Facility: [facility] Address: [address] [place] [address] Performed By: #### B HB, #### [facility] CLIA [id number] [address] [place] [address] [place] WBC LM.HPF (Urine sed) [#/Area] /[HPF] Abnormal 0-5 /HPF [facility] Comment on above: Order Comment: Speci men Type: BLOOD SPECIMEN Ordering Facility: [facility] Address: [address] [place] [address] Performed By: #### B HB, 89727-5 #### [facility] CLIA [id number] [address] [place] [id number] [place] XR CHEST 1V [...] Fatigue and malaise, Fatigue and malaise (accession [id number]), Osteomyelitis (accession [id number]) MQ: XC1_5 Comparison: CT 01/17/2021, radiograph 01/17/2021 [...] performed for increased sensitivity, as clinically warranted. [employer]: [employer]ILLE Transcribe Date/Time: Aug 31 2023 4:46A Dictated by : TAURUS MORTON MD This examination was interpreted and the report reviewed and electronically signed by: TAURUS MORTON MD on Aug 31 2023 4:51AM EST [id number] [facility] XR FOOT 3V AP/LAT/OBL LTon [...] Fatigue and malaise, Fatigue and malaise (accession [id number]), Osteomyelitis (accession [id number]) MQ: XC1_5 Comparison: CT 01/17/2021, radiograph 01/17/2021 [...] performed for increased sensitivity, as clinically warranted. [employer] Management Internship: P[employer] Transcribe Date/Time: Aug 31 2023 4:46A Dictated by : TAURUS MORTON MD This examination was interpreted and the report reviewed and electronically signed by: TAURUS MORTON MD on Aug 31 2023 4:51AM EST [id number] [facility] Benzodiazepines Screen Ql (U )on 08-09-2023 Benzodiazepines Ql (U) Negative Normal NEG [facility] Comment on above: Result Comment: Lenny odiazepines screening cut off value = 200 ng/mL This report is intended for use in clinical monitoring or management of patients. Performed By: #### 1 4316-4 #### [facility] ([id number]) [address] [place] [address] CCL GENERIC ORDERon 08-09-20 TEST NAME UQNTPP URINE PAIN PA VEGA QUANT Normal [facility] Comment on above: Result Comment: Wesley ected on 08/09 AT 1743: Previously reported as UQNTPP Performed By: #### C GO #### [facility] ([id number]) [address] [place] [address] TEST RESULT See Below Normal [facility] Comment on above: Result Comment: NOTE TEST RESULT FLAG UNIT REF.RANGE ----- Specimen Validity Quality See below Specimen quality results within acceptable limits Specimen Validity Creatinine 31.8 mg/dL 20.0-300.0 Specimen Validity PH 5.4 4.5-8.0 Specimen Validity Specific [place] 1.006 1.003-1.035 Specimen Validity Oxidants <38 mg/L [...] carboxylic acid (THCA) is a metabolite of mzcwy-4-aayiuqbuqufazauydyfi which is the main active component of marijuana. Fentanyl, Urine <6 ng/mL <6 Buprenorphine, Ur <20 ng/mL <20 Methadone Urine <16 ng/mL <16 Methadone metabolite Urine <6 ng/mL <6 EDDP is a metabolite of methadone. Note See Below This test is for medical use only. This test was developed and its performance characteristics determined by [facility]'s Taurus Melendrez [facility] Pathology [facility] Laboratory Medicine [place] ([facility] It has not been cleared or approved by the FDA. [facility] is regulated under CLIA as qualified to perform high-complexity testing. This test is used for clinical purposes. It should not be regarded as investigational or for research. URINE PAIN PANEL QUANT Test Performed By: [facility] [address] [place] [address] Embedded Engineer: Jeyson Linares III #[id number] Performed By: #### C GO #### [facility] ([id number]) [address] [facility] [place] [address] Operative Reporton Operative Report [id number]#1.00T IFF Normal [facility] Pathology Noteon 08-07-2023 Pathology Note [id number]#1.00 TIFF Normal [facility] ED Note-Physicianon 06-29-20 23 ED Note-Physician [id number]#1.00T IFF Normal [facility] Patient Letter FTMCon 2022 Patient Letter [facility] (Inserted Image. Grecia ble to display) June 28, 2023 AISLINN WHEELER [address] [place] [id number] : 1960 Dear Aislinn, You missed your [...] any future cancellations. Sincerely, [facility] [address] [facility], [place] [address] Pt called and RS'd. Normal [facility] Basic metabolic 2000 panelon 06-23-2023 Anion gap [Moles/Vol] 9 mmol/L Normal 05-08 [facility] Comment on above: Order Comment: Speci men Type: BLOOD SPECIMEN Ordering [facility] Address: [address] [place] [address] Performed By: #### B HB, #### [facility] CLIA [id number] [address] [place] [address] [place] Calcium [Mass/Vol] 7.3 mg/dL Low 8.5-10.2 [facility] Comment on above: Order Comment: Speci men Type: BLOOD SPECIMEN Ordering [facility] Address: [address] [place] [address] Performed By: #### B HB, #### [facility] CLIA [id number] [address] [place] [address] [place] Chloride [Moles/Vol] 110 mmol/L High 97-105 [facility] Comment on above: Order Comment: Speci men Type: BLOOD SPECIMEN Ordering Facility[facility] Address: [address] [place] [address] Performed By: #### B HB, #### [facility] CLIA [id number] [address] [place] [address] [place] CO2 [Moles/Vol] 19 mmol/L Low 22-30 [facility] Comment on above: Order Comment: Speci men Type: BLOOD SPECIMEN Ordering Facility[facility] Address: [address] [place] [address] Performed By: #### B HB, #### [facility] CLIA [id number] [address] [place] [address] [place] Creatinine [Mass/Vol] 1.39 mg/dL High 0.58-0.96 [facility] Comment on above: Order Comment: Speci men Type: BLOOD SPECIMEN Ordering Facility[facility] Address: [address] [place] [address] Performed By: #### B HB, #### [facility] CLIA [id number] [address] [place] [place] [address] [place] Creatinine and Glomerular filtration rate.predicted panel (S/P/Bld) 42 mL/min/1.73m??? Low >=60 [facility] Comment on above: Order Comment: [place] Type: BLOOD SPECIMEN Ordering Facility: [facility] Address: [address] [place] [address] Result Comment: Donna mated Glomerular Filtration Rate [...] actual GFR. Performed By: #### B HB, 67400-1 #### [facility] CLIA [id number] [address] [place] [address] [place] Glucose [Mass/Vol] 157 mg/dL High 74-99 [facility] Comment on above: Order Comment: [place] Type: BLOOD SPECIMEN Ordering Facility[facility] Address: [address] [place] [address] Result Comment: The [place] [employer] (ADA) provides guidance for cutoff [...] Standards of Medical Care in Diabetes 2016, [place] [employer]. Diabetes Care. 2016.39(Suppl 1). Performed By: #### B HB, 37253-2 #### [facility] CLIA [id number] [address] [place] [address] [place] Potassium [Moles/Vol] 5.1 mmol/L Normal 3.7-5.1 [facility] Comment on above: Order Comment: [place] Type: BLOOD SPECIMEN Ordering Facility: [facility] Address: [address] [place] [address] Performed By: #### B HB, 20895-7 #### [facility] CLIA [id number] [address] [place] [place] [address] [place] Sodium [Moles/Vol] 138 mmol/L Normal 136-144 [facility] Comment on above: Order Comment: Speci men Type: BLOOD SPECIMEN Ordering Facility: [facility] Address: [address] [place] [address] Performed By: #### B HB, 58983-6 #### [facility] CLIA [id number] [address] [place] [place] [address] [place] Urea nitrogen [Mass/Vol] 21 mg/dL Normal 7-21 [facility] Comment on above: Order Comment: Speci men Type: BLOOD SPECIMEN Ordering Facility: [facility] Address: [address] [place] [address] Performed By: #### B HB, 19396-5 #### [facility] CLIA [id number] [address] [place] [address] [place] CBC panel Auto (Bld)on 06-23 Erythrocyte distribution width (RBC) [Ratio] 14.4 % Normal 11.5-15.0 [facility] Comment on above: Order Comment: Speci men Type: BLOOD SPECIMEN Ordering Facility: [facility] Address: [address] [place] [address] Performed By: #### B HB, 34221-4 #### [facility] CLIA [id number] [address] [place] [address] [place] Hematocrit (Bld) [Volume fraction] 28.5 % Low 36.0-46.0 [facility] Comment on above: Order Comment: Speci men Type: BLOOD SPECIMEN Ordering Facility: [facility] Address: [address] [place] [address] Performed By: #### B HB, 86094-1 #### [facility] CLIA [id number] [address] [place] [address] [place] Hemoglobin (Bld) [Mass/Vol] 9.0 g/dL Low 11.5-15.5 [facility] Comment on above: Order Comment: Speci men Type: BLOOD SPECIMEN Ordering Facility: [facility] Address: [address] [place] [address] Performed By: #### B HB, #### [facility] CLIA [id number] [address] [place] [address] MCH (RBC) [Entitic mass] 25.2 pg Low 26.0-34.0 [facility] Comment on above: Order Comment: Speci men Type: BLOOD SPECIMEN Ordering Facility: [facility] Address: [address] [place] [address] Performed By: #### B HB, #### [facility] CLIA [id number] [address] [place] [address] MCHC (RBC) [Mass/Vol] 31.6 g/dL Normal 30.5-36.0 [facility] Comment on above: Order Comment: Speci men Type: BLOOD SPECIMEN Ordering Facility: [facility] Address: [address] [place] [address] Performed By: #### B HB, #### [facility] CLIA [id number] [address] [place] [address] [place] MCV (RBC) [Entitic vol] 79.8 fL Low 80.0-100.0 [facility] Comment on above: Order Comment: Speci men Type: BLOOD SPECIMEN Ordering Facility: [facility] Address: [address] [place] [address] Performed By: #### B HB, #### [facility] CLIA [id number] [address] [place] [address] [place] Nucleated RBC (Bld) [#/Vol] 10*3/uL Normal <0.01 [facility] Comment on above: Order Comment: Speci men Type: BLOOD SPECIMEN Ordering Facility: [facility] Address: [address] [place] [address] Performed By: #### B HB, #### [facility] CLIA [id number] [address] [place] [address] [place] Platelet mean volume (Bld) [Entitic vol] 10.6 fL Normal 9.0-12.7 [facility] Comment on above: Order Comment: Speci men Type: BLOOD SPECIMEN Ordering Facility: [facility] Address: [address] [place] [address] Performed By: #### B HB, 59778-7 #### [facility] CLIA [id number] [address] [place] [address] [place] Platelets (Bld) [#/Vol] 251 10*3/uL Normal 150-400 [facility] Comment on above: Order Comment: Speci men Type: BLOOD SPECIMEN Ordering Facility: [facility] Address: [address] [place] [address] Performed By: #### B HB, 57325-5 #### [facility] CLIA [id number] [address] [place] [place] [address] [place] RBC (Bld) [#/Vol] 3.57 10*6/uL Low 3.90-5.20 [facility] Comment on above: Order Comment: Speci men Type: BLOOD SPECIMEN Ordering Facility: [facility] Address: [address] [place] [address] Performed By: #### B HB, 45888-5 #### [facility] CLIA [id number] [address] [place] [place] [address] [place] WBC (Bld) [#/Vol] 7.47 10*3/uL Normal 3.70-11.00 [facility] Comment on above: Order Comment: Speci men Type: BLOOD SPECIMEN Ordering Facility: [facility] Address: [address] [place] [address] Performed By: #### B HB, 51845-6 #### [facility] CLIA [id number] [address] [place] [address] OF [place] CNDSon 06-23-2023 CNDS HNO ID: [id number] Author: Annie Martinez APRN.WEBSPHERE ARCHITECT Service: Urology Author Type: Nurse Practitioner Type: [...] this patient's care. Taurus Ballard MD [facility] [place] [phone] or ([phone]) [facility] C O N F I D E N T I A L I N F O R M A T I O N ------ STANDARD [facility] DOCUMENT DISCHARGE SUMMARY Patient Name: Aislinn [...] Your Medications These medications were sent to [facility] [address] [place] [address] Hours: Monday-Monday: 7am-7pm, Sat: 9am-1pm acetaminophen 325 mg tablet docusate sodium 100 mg capsule Future Appointments: No future appointments. Electronically SIGNED by Licensed Independent Practitioner: Annie Martinez APRN.[facility] NIECY Telephone ([facility]) AISLINN WHEELER ([id number]) 1960 F Date Time Provider Department 06/23/23 HEIDY GARCIA During your visit today, we recorded the following information about you: Heidy Garcia RN 06/23/2023 9:05 AM Signed Patient had left robotic partial nephrectomy by Dr. Ballard on 06/22/2023 Will call for surgical follow up once discharged Heidy Garcia RN 06/26/2023 10:45 AM Signed Patient phone number non functioning. Active in [employer], will send message inquiring on how she's feeling post-operatively. Vonnie Wilder RN 06/27/2023 10:15 AM Signed Spoke with grand daughter, Lola, as this office is unable to reach patient for post op call. Lola reports, that patient's phone is turned off, and she does not know how to use [employer]. Lola reports that patient went to [place] [facility] due to excruciating pain -was given [...] Encounter Status:Closed by HEIDY GARCIA on 06/23/23 [facility] NURSING PROGon 06-23-2023 NURSING PROG HNO ID: [id number] Author: Sweta Cordova, RN Service: ? Author [...] Annie Martinez, awaiting PRN order of hydralazine. [facility] ANES POSTPROC EVALon 023 ANES POSTPROC EVAL HNO ID: [id number] Author: Rikki Jhaveri MD Service: Anesthesiology Author Type: Anesthesiologist Type: Anesthesia Postprocedure Evaluation Filed: 06/22/2023 2:18 PM Note Text: POST ANESTHESIA EVALUATION NOTE : 1960 Procedure Summary Date: 06/22/23 Room / Location: [place] [address] / OR Anesthesia Start: 1107 Anesthesia Stop: [...] June 22, 2023 TIME: 2:18 PM CSN: [id number] [facility] ANES PRE-OPon 06-22-2023 ANES PRE-OP HNO ID: [id number] Author: Rikki Jhaveri MD Service: Anesthesiology Author [...] and consent discussed: yes. Patient / Responsible [employer] agrees to proceed: yes Patient / [...] June 22, 2023 TIME: 9:54 AM CSN: [id number] Normal [facility] Basic metabolic 2000 panelon 06-22-2023 Anion gap [Moles/Vol] 7 mmol/L Low 9-18 [facility] Comment on above: Order Comment: Speci men Type: BLOOD SPECIMEN Ordering Facility: [facility] Address: [address] [place] [address] Performed By: #### 2 4321-2 #### [facility] CLIA [id number] [address] [place] [address] [place] Calcium [Mass/Vol] 7.5 mg/dL Low 8.5-10.2 [facility] Comment on above: Order Comment: Speci men Type: BLOOD SPECIMEN Ordering Facility: [facility] Address: [address] [place] [address] Performed By: #### 2 4321-2 #### [facility] CLIA [id number] [address] [place] [place] [address] [place] Chloride [Moles/Vol] 108 mmol/L High 97-105 [facility] Comment on above: Order Comment: Speci men Type: BLOOD SPECIMEN Ordering Facility: [facility] Address: [address] [place] [address] Performed By: #### 2 4321-2 #### [facility] CLIA [id number] [address] [place] [place] [address] [place] CO2 [Moles/Vol] 19 mmol/L Low 22-30 [facility] Comment on above: Order Comment: Speci men Type: BLOOD SPECIMEN Ordering Facility: [facility] Address: [address] [place] [address] Performed By: #### 2 4321-2 #### [facility] CLIA [id number] [address] [place] [place] [address] [place] Creatinine [Mass/Vol] 1.57 mg/dL High 0.58-0.96 [facility] Comment on above: Order Comment: Speci men Type: BLOOD SPECIMEN Ordering Facility: [facility] Address: [address] [place] [address] Performed By: #### 2 4321-2 #### [facility] CLIA [id number] [address] [place] [address] [place] Creatinine and Glomerular filtration rate.predicted panel (S/P/Bld) 36 mL/min/1.73m??? Low >=60 [facility] Comment on above: Order Comment: [place] Type: BLOOD SPECIMEN Ordering Facility: [facility] Address: [address] [place] [address] Result Comment: Donna mated Glomerular Filtration Rate [...] GFR. Performed By: #### 2 4321-2 #### [facility] CLIA [id number] [place] [address] [place] Glucose [Mass/Vol] 275 mg/dL High 74-99 [facility] Comment on above: Order Comment: [place] Type: BLOOD SPECIMEN Ordering Facility: [facility] Address: [address] [place] [address] Result Comment: The [place] Diabetes Association (ADA) provides guidance for cutoff [...] Standards of Medical Care in Diabetes 2016, [place] [employer] Association. Diabetes Care. 2016.39(Suppl 1). Performed By: #### 2 4321-2 #### [facility] CLIA [id number] [address] [place] [address] [place] Potassium [Moles/Vol] 5.3 mmol/L High 3.7-5.1 [facility] Comment on above: Order Comment: Speci men Type: BLOOD SPECIMEN Ordering Facility: [facility] Address: [address] [place] [address] Performed By: #### 2 4321-2 #### [facility] CLIA [id number] [address] [place] [place] [address] [place] Sodium [Moles/Vol] 134 mmol/L Low 136-144 [facility] Comment on above: Order Comment: Speci men Type: BLOOD SPECIMEN Ordering Facility: [facility] Address: [address] [place] [address] Performed By: #### 2 4321-2 #### [facility] CLIA [id number] [address] [place] [place] [address] [place] Urea nitrogen [Mass/Vol] 26 mg/dL High 7-21 [facility] Comment on above: Order Comment: Speci men Type: BLOOD SPECIMEN Ordering Facility: [facility] Address: [address] [place] [address] Performed By: #### 2 4321-2 #### [facility] CLIA [id number] [address] [place] [address] [place] CBC panel Auto (Bld)on 06-22 Erythrocyte distribution width (RBC) [Ratio] 14.3 % Normal 11.5-15.0 [facility] Comment on above: Order Comment: Speci men Type: BLOOD SPECIMEN Ordering Facility: [facility] Address: [address] [place] [address] Performed By: #### 5 8410-2 #### [facility] CLIA [id number] [address] [place] [address] STATES [place] Hematocrit (Bld) [Volume fraction] 27.8 % Low 36.0-46.0 [facility] Comment on above: Order Comment: Speci men Type: BLOOD SPECIMEN Ordering Facility: [facility] Address: [address] [place] [address] Performed By: #### 5 8410-2 #### [facility] CLIA [id number] [address] [place] [address] [place] Hemoglobin (Bld) [Mass/Vol] 8.9 g/dL Low 11.5-15.5 [facility] Comment on above: Order Comment: Speci men Type: BLOOD SPECIMEN Ordering Facility: [facility] Address: [address] [place] [address] Performed By: #### 5 8410-2 #### [facility] CLIA [id number] [address] [place] [place] [address] [place] MCH (RBC) [Entitic mass] 25.3 pg Low 26.0-34.0 [facility] Comment on above: Order Comment: Speci men Type: BLOOD SPECIMEN Ordering Facility: [facility] Address: [address] [place] [address] Performed By: #### 5 8410-2 #### [facility] CLIA [id number] [address] [place] [place] [address] [place] MCHC (RBC) [Mass/Vol] 32.0 g/dL Normal 30.5-36.0 [facility] Comment on above: Order Comment: Speci men Type: BLOOD SPECIMEN Ordering Facility: [facility] Address: [address] [place] [address] Performed By: #### 5 8410-2 #### [facility] CLIA [id number] [address] [place] [address] [place] MCV (RBC) [Entitic vol] 79.0 fL Low 80.0-100.0 [facility] Comment on above: Order Comment: Speci men Type: BLOOD SPECIMEN Ordering Facility: [facility] Address: [address] [place] [address] Performed By: #### 5 8410-2 #### [facility] CLIA [id number] [address] [place] [place] [address] [place] Nucleated RBC (Bld) [#/Vol] 10*3/uL Normal <0.01 [facility] Comment on above: Order Comment: Speci men Type: BLOOD SPECIMEN Ordering Facility: [facility] Address: [address] [place] [address] Performed By: #### 5 8410-2 #### [facility] CLIA [id number] [address] [place] [place] [address] [place] Platelet mean volume (Bld) [Entitic vol] 10.8 fL Normal 9.0-12.7 [facility] Comment on above: Order Comment: Speci men Type: BLOOD SPECIMEN Ordering Facility: [facility] Address: [address] [place] [address] Performed By: #### 5 8410-2 #### [facility] CLIA [id number] [address] [place] [place] [address] [place] Platelets (Bld) [#/Vol] 230 10*3/uL Normal 150-400 [facility] Comment on above: Order Comment: Speci men Type: BLOOD SPECIMEN Ordering Facility: [facility] Address: [address] [place] [address] Performed By: #### 5 8410-2 #### [facility] CLIA [id number] [address] [place] [place] [address] [place] RBC (Bld) [#/Vol] 3.52 10*6/uL Low 3.90-5.20 [facility] Comment on above: Order Comment: Speci men Type: BLOOD SPECIMEN Ordering Facility: [facility] Address: [address] [place] [address] Performed By: #### 5 8410-2 #### [facility] CLIA [id number] [address] [place] [address] [place] WBC (Bld) [#/Vol] 6.04 10*3/uL Normal 3.70-11.00 [facility] Comment on above: Order Comment: Speci men Type: BLOOD SPECIMEN Ordering Facility: [facility] Address: [address] [place] [address] Performed By: #### 5 8410-2 #### [facility] CLIA [id number] [address] [place] [place] [address] [place] NURSING PROGon 06-22-2023 NURSING PROG HNO ID: [id number] Author: Afia Lanier RN Service: Nursing Author Type: Registered Nurse Type: Nursing Progress Note Filed: 06/22/2023 5:56 PM Note Text: Transfer Note: PATIENT NAME: Aislinn Wheeler Patient Location: [place] [address]/ Room: [place] [address] Patient transferred into room/unit pk308 in stable condition. Actions taken: No futher actions taken at this time. Will continue to monitor and check with patient. [facility] NURSING PROG HNO ID: [id number] Author: Linda Nicholson RN Service: Nursing Author Type: Registered Nurse Type: Nursing Progress Note Filed: 06/22/2023 12:20 PM Note Text: pre-incision juan area noted to have redness and inflamed, prior to prepping and putting chaves in. [facility] NURSING PROG HNO ID: [id number] Author: Elva Joy RN Service: Nursing Author [...] (RECOMMENDATION): None Electronically Signed By: Elva Joy [facility] OPERATIVE NOon 06-22-2023 OPERATIVE NO HNO ID: [id number] Author: Taurus Ballard MD Service: Urology Author Type: Physician Type: Operative Report Filed: 06/22/2023 1:48 PM Note Text: OPERATIVE/PROCEDURE REPORT LOG ID: [id number] Surgery/Procedure Date: 06/22/2023 Incision/Procedure Start Time: 11:49 AM Incision Close/Procedure End Time: 1:55 PM Surgeon(s)/Proceduralis t(s) and [facility] Supervisor(s): Surgeon(s) and Role: * Taurus Ballard MD - Primary * Jeet De La Fuente MD - Resident - Assisting Physician [facility] Supervisor: Camden Rios PA-C; Alicia Harmon PA-C Procedure(s): [...] superior to the umbilicus a 12 mm seed laboratory assistant port was placed. At this point [...] a specimen bag out of the supraumbilical seed laboratory assistant port. This port was closed with [...] None Drains: 10 flat JUAN drain, 16 Setswana Chaves catheter Complications: None Accidental Punctures/Lacerations: None I/primary surgeon/proceduralist performed the procedure with assistance. SIGNATURE: Taurus Ballard MD PATIENT NAME: Aislinn Wheeler DATE: June 22, 2023 TIME: 1:42 PM PAGER/CONTACT #: [facility] SURGICAL PATHOLOGYon 023 CASE REPORT Normal [facility] Comment on above: Order Comment: Speci men Type: BLOOD SPECIMEN Ordering Facility: [facility] Address: [address] [place] [address] Result Comment: Surg [facility] Pathology Report Case: [id number] Authorizing Provider: Taurus Ballard MD Collected: 06/22/2023 01:38 PM Ordering Location: [facility] Received: 06/22/2023 03:16 PM Operating Room Pathologist: Barron Cheema MD Specimen: KIDNEY PARTIAL NEPHRECTOMY LEFT, left renal neoplasm Performed By: #### B , 53587-6 #### [facility] CLIA [id number] OF [facility] CLINICAL HISTORY [facility] Comment on above: Order Comment: [place] Type: BLOOD SPECIMEN Ordering Facility: [facility] Address: [address] [place] [address] Result Comment: 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 - 7.2 cm gross greatest dimension of tissue specimen (defer to clinical/imaging for overall lesion size). Performed By: #### B AMADO, 90479-7 #### [facility] CLIA [id number] [address] [place] [address] FINAL PERFORMING LAB [facility] Comment on above: Order Comment: [place] Type: BLOOD SPECIMEN Ordering Facility: [facility] Address: [address], [place] [address] Result Comment: Diag nostic interpretation performed at [facility], [address] [place] [address] CLIA# [id number] Embedded Engineer: Oswald Munguia M.D. Performed By: #### Kimberlyn FISCHER, 76804-1 #### [facility] CLIA [id number] [address] [place] [address] OF [place]E GROSS DESCRIPTION Normal [facility] Comment on above: Order Comment: Speci men Type: BLOOD SPECIMEN Ordering Facility: [facility] Address: [address] [place] [address] Result Comment: Emre MCGRATH PARTIAL NEPHRECTOMY LEFT Received in formalin designated left renal neoplasm is a segment of chilel-purple membranous tissue which weighs 39 g and measures 7.2 x 5.5 x 3.5 cm. There is cautery present at the margin which is inked orange. The surfaces are smooth with no masses or papillations grossly appreciated. Sectioning does not reveal any masses. Medical Assistant Secretary sections are submitted in 5 cassettes. BF June 23, 2023 9:00 AM Gross examination performed at [facility], [address] [place] [address] CLIA # [id number] Performed By: #### Kimberlyn FISCHER, 84730-1 #### [facility] CLIA [id number] [address] [place] [address] OF [facility] CNPOlivia 06-15-2023 CNPN [facility]phone [facility] AISLINN WHEELER ([id number]) 1960 F Date Time Provider Department 06/15/23 [...] Status:Closed by VONNIE WILDER on 06/15/23 [facility] 06-12-2023 [facility] Telephone ([facility]) AISLINN WHEELER ([id number]) 1960 F Date Time Provider Department 06/12/23 [facility] During your visit today, we recorded the following information about you: Liliana Velasco RN 06/12/2023 8:56 AM Signed Received call from RN at Dr. Sara Augustine ([phone]) office (endocrinology) regarding clearance for upcoming surgery [...] Sara Dai CNP received and scanned into [employer] to view. Allergies As of Date: 06/12/2023 [...] Encounter Status:Closed by LILIANA VELASCO on 06/12/23 [facility] C Urineon 06-10-2023 Bacteria identified [...] was performed at: [facility], [address] [place] [address], [phone] , , [facility] Comment on above: Performed By: #### 2 [id number] #### [facility] [address] [place] [address] [facility] AISLINN WHEELER ([id number]) 1960 F Date Time Provider Department 06/09/23 TAURUS BALLARD During your visit today, we recorded the following information about you: Derik Fernandez 06/09/2023 3:31 PM Signed Lvm on patient's phone inquiring 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) AISLINN WHEELER ([id number]) 1960 F Date Time Provider Department 06/07/23 [...] to PCP Thank you Aaron Aguilar APRN.CNP [facility] Aaron Aguilar APRN.CNP 06/07/2023 8:26 AM Signed [...] Signed Dr. Chao, Patient saw endocrinology at [facility] 06/08 and had medications adjusted. I [...] of instructions above Thank you Aaron Aguilar APRN.WEBSPHERE ARCHITECT Anitra Sanchez RN 06/19/2023 9:07 AM Addendum I spoke with patient and instructions given to take at least 12 units of her Lantus the night prior to her scheduled surgery on 06/22/[address] Ballard. Patient stated she is not feeling well and has the following symptoms: whole body aches, chills, nausea, and fatigue. She is on her way to [facility] ED. Because patient is not feeling [...] with hyperglycemia (HCC) [E11.65] Order(s):CONSULT TO ENDOCRINOLOGY [3856] Order #: [id number]: 1 FUTURE Prescriptions as of 06/19/2023 - [...] hours as (more content not included)... Normal [facility] CBC W Auto Differential pane l (Bld)on 06-06-2023 Basophils (Bld) [#/Vol] 0.04 10*3/uL Normal <0.11 [facility] Comment on above: Order Comment: Speci men Type: BLOOD SPECIMENOrdering Facility: [facility] Address: [address] [place] [address] Performed By: #### 5 7021-8 ####[facility] [id number] [facility] [id number] [id number] [place] Basophils/100 WBC (Bld) 0.8 % Normal [facility] Comment on above: Order Comment: Speci men Type: BLOOD SPECIMENOrdering Facility: [facility] Address: [address] [place] [address] Performed By: #### 5 7021-8 ####[facility] [id number] [place] [address] [place] Differential cell count method Nom (Bld) Auto Normal [facility] Comment on above: Order Comment: Speci men Type: BLOOD SPECIMENOrdering Facility: [facility] Address: [address] [place] [address] Performed By: #### 5 7021-8 ####[facility]IA [id number] [place] [address] [place] Eosinophils (Bld) [#/Vol] 0.15 10*3/uL Normal <0.46 [facility] Comment on above: Order Comment: Speci men Type: BLOOD SPECIMENOrdering Facility: [facility] Address: [address] [place] [address] Performed By: #### 5 7021-8 ####[facility] [id number] [place] [address] [place] Eosinophils/100 WBC (Bld) 3.1 % Normal [facility] Comment on above: Order Comment: Speci men Type: BLOOD SPECIMENOrdering Facility: [facility] Address: [address] [place] [address] Performed By: #### 5 7021-8 ####[facility] [id number] [place] [address] [place] Erythrocyte distribution width (RBC) [Ratio] 14.7 % Normal 11.5-15.0 [facility] Comment on above: Order Comment: Speci men Type: BLOOD SPECIMENOrdering Facility: [facility] Address: [address] [place] [address] Performed By: #### 5 7021-8 ####[facility] [id number] [place] [address] [place] Hematocrit (Bld) [Volume fraction] 37.2 % Normal 36.0-46.0 [facility] Comment on above: Order Comment: Speci men Type: BLOOD SPECIMENOrdering Facility: [facility] Address: [address] [place] [address] Performed By: #### 5 7021-8 ####[facility] [id number] [place] [address] [place] Hemoglobin (Bld) [Mass/Vol] 11.9 g/dL Normal 11.5-15.5 [facility] Comment on above: Order Comment: Speci men Type: BLOOD SPECIMENOrdering Facility: [facility] Address: [address] [place] [address] Performed By: #### 5 7021-8 ####[facility] [id number] [place] [address] [place] Immature granulocytes (Bld) [#/Vol] 10*3/uL Normal <0.10 [facility] Comment on above: Order Comment: Speci men Type: BLOOD SPECIMENOrdering Facility: [facility] Address: [address] [place] [address] Performed By: #### 5 7021-8 ####[facility] LABIA [id number] [place] [address] [place] Immature granulocytes/100 WBC (Bld) 0.4 % Normal [facility] Comment on above: Order Comment: Speci men Type: BLOOD SPECIMENOrdering Facility: [facility] Address: [address] [place] [address] Performed By: #### 5 7021-8 ####[facility] [id number] [place] [address] [place] Lymphocytes (Bld) [#/Vol] 2.18 10*3/uL Normal 1.00-4.00 [facility] Comment on above: Order Comment: Speci men Type: BLOOD SPECIMENOrdering Facility: [facility] Address: [address] [place] [address] Performed By: #### 5 7021-8 ####[facility] LABCLIA [id number] [place] [address] [place] Lymphocytes/100 WBC (Bld) 44.7 % Normal [facility] Comment on above: Order Comment: Speci men Type: BLOOD SPECIMENOrdering Facility: [facility] Address: [address] [place] [address] Performed By: #### 5 7021-8 ####[facility]CLIA [id number] [place] [address] [place] MCH (RBC) [Entitic mass] 25.4 pg Low 26.0-34.0 [facility] Comment on above: Order Comment: Speci men Type: BLOOD SPECIMENOrdering Facility: [facility] Address: [address] [place] [address] Performed By: #### 5 7021-8 ####[facility] LABCLIA [id number] [place] [address] [place] MCHC (RBC) [Mass/Vol] 32.0 g/dL Normal 30.5-36.0 [facility] Comment on above: Order Comment: Speci men Type: BLOOD SPECIMENOrdering Facility: [facility] Address: [address] [place] [address] Performed By: #### 5 7021-8 ####[facility] LABCLIA [id number] [place] [address] [place] MCV (RBC) [Entitic vol] 79.5 fL Low 80.0-100.0 [facility] Comment on above: Order Comment: Speci men Type: BLOOD SPECIMENOrdering Facility: [facility] Address: [address] [place] [address] Performed By: #### 5 7021-8 ####[facility] LABCLIA [id number] [place] [address] [place] Monocytes (Bld) [#/Vol] 0.42 10*3/uL Normal <0.87 [facility] Comment on above: Order Comment: Speci men Type: BLOOD SPECIMENOrdering Facility: [facility] Address: [address] [place] [address] Performed By: #### 5 7021-8 ####[facility] LABCLIA [id number] [place] [address] [place] Monocytes/100 WBC (Bld) 8.6 % Normal [facility] Comment on above: Order Comment: Speci men Type: BLOOD SPECIMENOrdering Facility: [facility] Address: [address] [place] [address] Performed By: #### 5 7021-8 ####[facility] LABCLIA [id number] [place] [address] [place] Neutrophils (Bld) [#/Vol] 2.07 10*3/uL Normal 1.45-7.50 [facility] Comment on above: Order Comment: Speci men Type: BLOOD SPECIMENOrdering Facility: [facility] Address: [address] [place] [address] Performed By: #### 5 7021-8 ####[facility] LABCLIA [id number] [place] [address] [place] Neutrophils/100 WBC (Bld) 42.4 % Normal [facility] Comment on above: Order Comment: Speci men Type: BLOOD SPECIMENOrdering Facility: [facility] Address: [address] [place] [address] Performed By: #### 5 7021-8 ####[facility] LABCLIA [id number] [place] [address] [place] Nucleated RBC (Bld) [#/Vol] 10*3/uL Normal <0.01 [facility] Comment on above: Order Comment: Speci men Type: BLOOD SPECIMENOrdering Facility: [facility] Address: [address] [place] [address] Performed By: #### 5 7021-8 ####[facility] LABCLIA [id number] [place] [address] [place] Nucleated RBC/100 WBC (Bld) [Ratio] 0.0 /100 WBC Normal [facility] Comment on above: Order Comment: Speci men Type: BLOOD SPECIMENOrdering Facility: [facility] Address: [address] [place] [address] Performed By: #### 5 7021-8 ####[facility] LABCLIA [id number] [place] [address] [place] Platelet mean volume (Bld) [Entitic vol] 11.5 fL Normal 9.0-12.7 [facility] Comment on above: Order Comment: Speci men Type: BLOOD SPECIMENOrdering Facility: [facility] Address: [address] [place] [address] Performed By: #### 5 7021-8 ####[facility] LABCLIA [id number] [place] [address] [place] Platelets (Bld) [#/Vol] 230 10*3/uL Normal 150-400 [facility] Comment on above: Order Comment: Speci men Type: BLOOD SPECIMENOrdering Facility: [facility] Address: [address] [place] [address] Performed By: #### 5 7021-8 ####[facility] LABCLIA [id number] [place] [address] [place] RBC (Bld) [#/Vol] 4.68 10*6/uL Normal 3.90-5.20 [facility] Comment on above: Order Comment: Speci men Type: BLOOD SPECIMENOrdering Facility: [facility] Address: [address] [place] [address] Performed By: #### 5 7021-8 ####[facility] LABCLIA [id number] [place] [address] [place] WBC (Bld) [#/Vol] 4.88 10*3/uL Normal 3.70-11.00 [facility] Comment on above: Order Comment: Speci men Type: BLOOD SPECIMENOrdering Facility: [facility] Address: [address] [place] [address] Performed By: #### 5 7021-8 ####[facility] LABCLIA [id number] [address] [address] [place] Comprehensive metabolic 2000 panelon 06-06-2023 Albumin [Mass/Vol] 3.8 g/dL Low 3.9-4.9 [facility] Comment on above: Order Comment: Speci men Type: BLOOD SPECIMENOrdering Facility: [facility] Address: [address] [place] [address] Performed By: #### 2 4323-8 ####[facility] LABCLIA [id number] [place] [address] [place] ALP [Catalytic activity/Vol] 115 U/L Normal 34-123 [facility] Comment on above: Order Comment: Speci men Type: BLOOD SPECIMENOrdering Facility: [facility] Address: [address] [place] [address] Performed By: #### 2 4323-8 ####[facility] LABCLIA [id number] [place] [address] [place] ALT [Catalytic activity/Vol] 11 U/L Normal 7-38 [facility] Comment on above: Order Comment: Speci men Type: BLOOD SPECIMENOrdering Facility: [facility] Address: [address] [place] [address] Performed By: #### 2 4323-8 ####[facility] LABCLIA [id number] [address] [address] [place] Anion gap [Moles/Vol] 11 mmol/L Normal 9-18 [facility] Comment on above: Order Comment: Speci men Type: BLOOD SPECIMENOrdering Facility: [facility] Address: [address] [place] [address] Performed By: #### 2 4323-8 ####[facility] LABCLIA [id number] [place] [address] [place] AST [Catalytic activity/Vol] 12 U/L Low 13-35 [facility] Comment on above: Order Comment: Speci men Type: BLOOD SPECIMENOrdering Facility: [facility] Address: [address] [place] [address] Performed By: #### 2 4323-8 ####[facility] LABCLIA [id number] [place] [address] [place] Bilirubin [Mass/Vol] 0.3 mg/dL Normal 0.2-1.3 [facility] Comment on above: Order Comment: Speci men Type: BLOOD SPECIMENOrdering Facility: [facility] Address: [address] [place] [address] Performed By: #### 2 4323-8 ####[facility] LABCLIA [id number] [place] [address] [place] Calcium [Mass/Vol] 8.9 mg/dL Normal 8.5-10.2 [facility] Comment on above: Order Comment: Speci men Type: BLOOD SPECIMENOrdering Facility: [facility] Address: [address] [place] [address] Performed By: #### 2 4323-8 ####[facility] LABCLIA [id number] [place] [address] [place] Chloride [Moles/Vol] 95 mmol/L Low 97-105 [facility] Comment on above: Order Comment: Speci men Type: BLOOD SPECIMENOrdering Facility: [facility] Address: [address] [place] [address] Performed By: #### 2 4323-8 ####[facility] LABCLIA [id number] [place] [address] [place] CO2 [Moles/Vol] 24 mmol/L Normal 22-30 [facility] Comment on above: Order Comment: Speci men Type: BLOOD SPECIMENOrdering Facility: [facility] Address: [address] [place] [address] Performed By: #### 2 4323-8 ####[facility] LABCLIA [id number] [place] [address] [place] Creatinine [Mass/Vol] 1.81 mg/dL High 0.58-0.96 [facility] Comment on above: Order Comment: [place] men Type: BLOOD SPECIMENOrdering Facility: [facility] Address: [address] [place] [address] Performed By: #### 2 4323-8 ####[facility] LABIA [id number] [place] [address] [place] Creatinine and Glomerular filtration rate.predicted panel (S/P/Bld) 31 mL/min/1.73m??? Low >=60 [facility] Comment on above: Order Comment: [place] Type: BLOOD SPECIMENOrdering Facility: [facility] Address: [address] [place] [address] Result Comment: Donna mated Glomerular Filtration Rate [...] actual GFR. Performed By: #### 2 4323-8 ####[facility] LABIA [id number] [place] [address] [place] Glucose [Mass/Vol] 510 mg/dL High 74-99 [facility] Comment on above: Order Comment: [place] Type: BLOOD SPECIMENOrdering Facility: [facility] Address: [address] [place] [address] Result Comment: The [place] Diabetes Association (ADA) provides guidance for cutoff [...] Standards of Medical Care in Diabetes 2016, [place] [employer] Association. Diabetes Care. 2016.39(Suppl 1). Performed By: #### 2 4323-8 ####[facility] LABCLIA [id number] [place] [address] [place] Potassium [Moles/Vol] 5.9 mmol/L High 3.7-5.1 [facility] Comment on above: Order Comment: Speci men Type: BLOOD SPECIMENOrdering Facility: [facility] Address: [address] [place] [address] Performed By: #### 2 4323-8 ####[facility] LABCLIA [id number] [place] [address] [place] Protein [Mass/Vol] 8.2 g/dL High 6.3-8.0 [facility] Comment on above: Order Comment: Speci men Type: BLOOD SPECIMENOrdering Facility: [facility] Address: [address] [place] [address] Performed By: #### 2 4323-8 ####[facility] LABCLIA [id number] [place] [address] [place] Sodium [Moles/Vol] 130 mmol/L Low 136-144 [facility] Comment on above: Order Comment: Speci men Type: BLOOD SPECIMENOrdering Facility: [facility] Address: [address] [place] [address] Performed By: #### 2 4323-8 ####[facility] LABCLIA [id number] [place] [address] [place] Urea nitrogen [Mass/Vol] 36 mg/dL High 7-21 [facility] Comment on above: Order Comment: Speci men Type: BLOOD SPECIMENOrdering Facility: [facility] Address: [address] [place] [address] Performed By: #### 2 4323-8 ####[facility] LABCLIA [id number] TIMPrimo RODRIGUEZ [place] [address] [place] ECG COMPLETEon 06-06-2023 ECG COMPLETE Ventricular Rate : 7 6 BPM Atrial Rate : 76 BPM P-R Interval : 162 ms QRS Duration : 74 ms Q-T Interval : 402 ms QTC Calculation(Bazett) : 452 ms Calculated P [place] : 48 degrees Calculated R [place] : 43 degrees Calculated T [place] : 53 degrees NORMAL SINUS RHYTHM POSSIBLE LEFT ATRIAL ENLARGEMENT BORDERLINE ECG Confirmed by AMANDA DAVID MD ([id number]) on 06/10/2023 4:44:16 PM NAME : AISLINN WHEELER PID : [id number] : 1960 Gender : Female Race : ORD : [id number] Procedure Date : Jun 06 2023 12:04:48 Edit Date : Jun 10 2023 16:44:21 Diagnosis: NORMAL SINUS RHYTHM POSSIBLE LEFT ATRIAL ENLARGEMENT BORDERLINE ECG Confirmed by AMANDA DAVID MD ([id number]) on 06/10/2023 4:44:16 PM Test Reason : Z01.818 Preop examination [facility] : [facility] Over[facility] By : AMANDA DAVID MD Edited By : AMANDA DAVID MD Referred By : TAURUS BALLARD Acquired by : am, Normal [facility] HISTORY PHYSICALon HISTORY PHYSICAL HNO ID: [id number] Author: Aaron Aguilar APRN.WEBSPHERE ARCHITECT Service: ? Author Type: Nurse Practitioner Type: [...] Uropathy Anatoliy (Acute Kidney Injury) ([facility]) Generalized Weakness Falls Frequently Severe Protein-Calorie Malnutrition ([facility]) Bladder Outlet Obstruction Primary Hypertension Mild Intermittent Asthma Without Complication History of Tia (Transient Ischemic Attack) Mvp (Mitral Valve Prolapse) Mildred (Iron Deficiency Anemia) Chronic Pain Due to Trauma Neurogenic Bladder Stage 3a Chronic Kidney Disease (Hcc) Type 2 Diabetes Mellitus With Hyperglycemia, With Long-Term Current Use of Insulin ([facility]) Subjective CHIEF COMPLAINT: Flank pain [...] 2 drinks per day. 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 Normal [facility] HbA1c (Bld)on 06-06-2023 Average glucose Estimated from glycated hemoglobin (Bld) [Mass/Vol] 335 mg/dL Normal [facility] Comment on above: Order Comment: Speci men Type: BLOOD SPECIMENOrdering Facility: [facility] Address: [address] [place] [address] Result Comment: eAG: (Estimated average glucose) is a calculated value from HgbA1c and is risk control representative of the average blood glucose level in the last 2-3 month period. Performed By: #### 5 5454-3 ####[facility] LABCLIA [id number] [place] [address] [place] HbA1c (Bld) [Mass fraction] 13.3 % High 4.3-5.6 [facility] Comment on above: Order Comment: [place] Type: BLOOD SPECIMENOrdering Facility: [facility] Address: [address] [place] [address] Result Comment: [place] Diabetes Association guidelines indicate that patients with HgbA1c in the range 5.7-6.4% are at increased risk for development of diabetes, and intervention by lifestyle modification may be beneficial. HgbA1c greater or equal to 6.5% is considered diagnostic of diabetes. Performed By: #### 5 5454-3 ####[facility] LABCLIA [id number] [address] [place] PT panel Coag (PPP)on 2022 INR Coag (PPP) [Relative time] 1.0 {INR} Normal 0.9-1.3 [facility] Comment on above: Order Comment: [place] Type: BLOOD SPECIMENOrdering Facility: [facility] Address: [address] [place] [address] Result Comment: Laxmi min K Antagonist (VKA) Therapeutic Range: INR 2 to 3 (Target INR of 2.5) Note: For patients treated with VKA drugs, such as warfarin, the [place] [employer] 2012 Guideline recommends [...] Chest 2012, 141:7S-47S Eligio LEÓN et al. [facility] 2017, 70: 252-289 Performed By: #### 1 4979-9, 95937-2 ####[facility] LABCLIA [id number] [place] [address] [place] PT Coag (PPP) [Time] 10.1 s Normal 9.7-13.0 [facility] Comment on above: Order Comment: Speci men Type: BLOOD SPECIMENOrdering Facility: [facility] Address: [address] [place] [address] Performed By: #### 1 4979-9, 84313-6 ####[facility] LABCLIA [id number] [address] OF [facility] TYPE AND SCREEN,30 DAYon ABO B Normal [facility] Comment on above: Order Comment: Speci men Type: BLOOD SPECIMENOrdering Facility: [facility] Address: [address] [place] [address] Performed By: #### T SCR30 ####[facility] BLOOD BANKIA [id number] [address] [place] HISTORICAL AB SCR STATUS Negative Normal [facility] Comment on above: Order Comment: Speci men Type: BLOOD SPECIMENOrdering Facility: [facility] Address: [address] [place] [address] Performed By: #### T SCR30 ####[facility] BLOOD BANKCLIA [id number] [place] [address] [place] Rh Nom (Bld) Positive Normal [facility] Comment on above: Order Comment: Speci men Type: BLOOD SPECIMENOrdering Facility: [facility] Address: [address] [place] [address] Performed By: #### T SCR30 ####[facility] BLOOD BANKCLIA [id number] [place] [address] [place] aPTT PPPon 06-06-2023 aPTT Coag (PPP) [Time] 28.7 s Normal 23.0-32.4 [facility] Comment on above: Order Comment: Speci men Type: BLOOD SPECIMENOrdering Facility: [facility] Address: [address] [facility] [place] [address] Result Comment: Yeny en Plasma Aliquot Performed By: #### 1 4979-9, 70176-4 ####[facility] LABCLIA [id number] [facility] [id number] [place] Consent for Procedure/Surger yon 05-22-2023 Consent for Procedure/Surgery [id number]#1.0 0CD:127 Normal [facility] Consent for Treatmenton Consent for Treatment [id number] D:127 Normal [facility] Inpatient Patient Summaryon 05-22-2023 Inpatient Patient Summary [place] [id number] Clinical Summary Person Information Name: AISLINN WHEELER Age: 63 Years : 1960 Sex: Female PCP: AGUSTO OLMSTEAD CNP Marital Status: Race: White Ethnicity: Non- or Language: Greek Visit Id: Visit Reason: MIXED URINARY INCONTINENCE Speciality: Acuity: Enc Type: Outpatient Med Service: Surgery Arrival: 05/22/2023 09:41:57 Discharge: Dispo Type: Address: [address] [place] [id number] Provider Notes: Diagnosis: Feeling of incomplete bladder [...] Address: When: Lisa Vern [address] [place] [phone] Business (1) [facility] [address] [place] [address], [place] [phone] Business (1) Comments: Office to schedule follow up in 1 month with PVR Patient Education Information: EU - Cystoscopy with Botox Injection Discharge Instructions (CUSTOM) [facility] IntraOperative Documentson 1 IntraOperative Documents [id number]#1.0 0CD:127 [facility] Main OR Intraoperative Recor don 05-22-2023 Main OR Intraoperative Record IntraOp Document Type FTURO Summary Primary Physician: Lisa Porras MD Finalized Date/Time: 05/22/23 11:29:32 Pt. Name: AISLINN WHEELER Pranay/Sex: 1960 Female Med Rec #: [id number] Physician: Lisa Porras MD Financial #: [id number] Pt. Type: O Room/Bed: / Admit/Disch: 05/22/23 09:41:57 - Institution: Case Times FTURO Entry 1 Patient Times In Room 05/22/23 11:15:00 Out Room 05/22/23 11:30:00 Procedure Times Start 05/22/23 11:22:00 Stop 05/22/23 11:26:00 Anesthesia Times Last Modified By: Katya LE, Marilee Feldman 05/22/23 11:26:29 General Comments: BOTOX 100 UNITS LOT#: [id number] , EXP DATE: 09/2025 -Jessica BLANCO RN Case Attendance FTURO Entry 1 Entry 2 Entry 3 Case Attendee Vern TAVERAS, Lisa Blanco RN, Marilee Solano CST, Cammie Feldman Role Performed Surgeon - Primary New Car Get Ready Mechanic - Primary Scrub - Primary Time In 05/22/23 11:15:00 05/22/23 11:15:00 05/22/23 11:15:00 Time Out 05/22/23 11:30:00 05/22/23 11:30:00 05/22/23 11:30:00 Procedure CYSTOSCOPY LOCAL BOTOX CYSTOSCOPY LOCAL BOTOX CYSTOSCOPY LOCAL BOTOX INJECTION(.) INJECTION(.) INJECTION(.) Comments Last Modified By: Katya LE, Marilee Blanco RN, Marilee Blanco RN, Marilee Feldman 05/22/23 pAryl Feldman 05/22/23 Apryl P 05/22/23 11:26:33 11:26:33 [...] By: Marilee Blanco RN 05/22/23 11:29 Normal [facility] Main OR Preoperative Recordo n 05-22-2023 Main OR Preoperative Record Holding Area Document Type FTURO Summary Primary Physician: Lisa Porras MD Finalized Date/Time: 05/22/23 10:32:24 Pt. Name: AISLINN WHEELER Ashok /Sex: 1960 Female Med Rec #: [id number] Physician: Lisa Porras MD Financial #: [id number] Pt. Type: O Room/Bed: / Admit/Disch: 05/22/23 [...] By: Cammie Mcpherson RN 05/22/23 10:32 Normal [facility] Operative Reporton Operative Report Patient: BARBARA WHEELER Age: 63 years Sex: Female : 1960 Associated Diagnoses: None Author: Lisa Porras MD Procedure Operative Information Details: Date/ Time: 05/22/2023 11:29:00. Pre-Op Dx: Feeling of incomplete bladder emptying (KNJ82-VR R39.14, Discharge, Medical), Mixed incontinence (KMB78-WG N39.46, Discharge, Medical), Urinary leakage (BMH53-DC R32, Discharge, Medical). Post-Op Dx: Same. Anesthesia [...] to [facility] in the remote past). Normal [facility] Comment on above: Result Comment: Elec tronically Signed By: Lisa Porras MD\.br\Date and Time Signed: 05/22/23 11:30 EDT Outpatient Surgery Discharge Instructionon 05-22-2023 Outpatient Surgery Discharge Instruction [place] [address] Patient Discharge Instructions PERSON INFORMATION Name: AISLINN [...] Address: When: Lisa Porras [address] [place] [id number] [phone] Business (1) [address] [place], [place] [phone] Business (1) Comments: Office to schedule follow [...] Date You may receive a survey from [employer] asking you to rate your care experience. Your feedback is important and will help us understand what we do well and how we can improve the quality of care we provide to you, your loved ones and our community. It?s an honor to serve you. Thank you for choosing [facility] Normal [facility] Consultation Noteon 05-19-20 Consultation Note [id number] D:127 Normal [facility] A1C HEMOGLOBINon 05-18-2023 HbA1c (Bld) [Mass fraction] 14.0 % [facility] AISLINN WHEELER ([id number]) 1960 F Date Time Provider Department 05/18/23 TAURUS BALLARD During your visit today, we recorded the following information about you: Agusto Faulkner 05/18/2023 1:01 PM Signed Consult notes sent back to Dr. Lisa Porras , phone [phone]. From Dr. Ballard office. Allergies As of [...] Encounter Status:Closed by DERIK FERNANDEZ on 06/09/23 [facility] Glucose - FINGER STICKon Glucose [Mass/Vol] 429 mg/dL [facility] Other HbA1c (Bld) [Mass fraction]o n 05-18-2023 A1C HEMOGLOBIN [employer] [facility] [employer] Other CNOVon 05-17-2023 CNOV Office Visit (URFHR) AISLINN WHEELER ([id number]) 1960 F Date Time Provider Department 05/17/23 1:10 PM [facility] During your visit today, we recorded the following information about you: Temperature Pulse Blood pressure Weight 97.5 degrees 70/minute 172/81 60.1 kg Taurus Ballard MD 05/17/2023 1:35 PM Signed [facility] FOLLOW-UP PATIENT HISTORY AND PHYSICAL [...] 1.92 01/19/[address] scan (outside records) [facility] 09/28/21 IMPRESSION: Since the prior CT scan [...] other structures) (more content not included)... Normal [facility] C Urineon 05-13-2023 Bacteria identified Cx [...] was performed at: [facility], [address] [place] [address], [address] , [place], Normal [facility] Comment on above: Performed By: #### 2 [id number] #### [facility] [address] [place] [address] Physician Referralon 023 Physician Referral [id number] :127 PATIENT IS SCHEDULED 05/17/2023 [facility] Consultation Noteon 05-04-20 23 Consultation Note [id number]#1.00CD :127 Normal [facility] Insurance Correspondenceon 0 05-04-2023 Insurance Correspondence [id number]#1.00 CD:127 Normal [facility] Urology Office/Clinic Noteon 05-04-2023 Urology [...] mass on Kidney was not cancerous. However supervisor customer records division told her she has kidney cancer. Denies [...] PSH lap cholecystectomy, open hysterectomy -Continues with supervisor customer records division for CKD3 1. Renal cyst (N28.1: Cyst [...] pt to tertiary center, Dr. Ballard at [facility] for evaluation of robotic left cyst decortication -Pt states supervisor customer records division told her she has cancer. 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 Ordered: 76718 Measure Post Void residual urine and/or bladder capacity by US- non-imaging Urnls Dip Stick Auto w/o Microscopy POC 80422 2. Mixed incontinence (N39.46: Mixed incontinence) Pt [...] of Botox. (more content not included)... Normal [facility] Comment on above: Result Comment: Elec tronically Signed By: Lisa Porras MD\.br\Date and Time Signed: 05/04/23 14:11 EDT Ambulatory Visit Summaryon 0 05-03-2023 Ambulatory Visit Summary AISLINN WHEELER :1960 Visit Date:05/03/2023 Ambulatory Visit Instructions Your Diagnosis Renal mass Renal cyst Mixed incontinence Feeling of incomplete bladder emptying Glucosuria Tests Performed Urnls Dip Stick Auto w/o Microscopy POC 98218 Your Care Team Attending Physician - Lisa [...] Follow-Up Appointments Monday 12:30 PM EDT Where: [facility] Monday 10:30 AM EDT Where: [facility] You Need to Schedule the Following Appointments Follow Up with Vern TAVERAS, Lisa Montiel, URL, URO When: Comments: Sched Botox. Where: Medications What How Much When Instructions New cephalexin (Keflex 500 mg Cap) 1 Capsules By Mouth 2 times a day Duration: 3 Days Start one day prior to procedure Pickup at [facility] New estradiol topical (Estrace 0.1 mg/ g Cream) See instructions Refills: 3 apply pea size amount to urethra/ inner vagina 3x/ week x 1 month, then 2x/ week for maintainence Pickup at [facility] Unchanged trospium (trospium 20 mg oral [...] physician if questions or concerns Pharmacy Information [facility]: [address], [place] [id number] [phone] Test Results Urnls Dip Stick Auto w/o Microscopy POC 65835 (05/03/2023) Bilirubin Urine Dipstick - Negative Blood Urine Dipstick - Trace-intact Glucose Urine Dipstick - 3+ 1000 mg/dl Ketones Urine Dipstick - Negative Leukocytes Urine Dipstick - Negative Nitrite Urine Dipstick - Negative Protein Urine Dipstick - Trace Specific [place] Urine Dipstick - 1.015 Urine Appearance Urine [...] are saf (more content not included)... Normal [facility] Patient Educationon 05-03-20 Patient Education [...] provider. Document Revised: 12/16/2021 Document Reviewed: 12/16/2021 [employer] Patient Education ? 2022 [employer] [facility] [place] 05-03-2023 Screens [id number]#1.00 CD:127 [facility] C Urineon 04-20-2023 Bacteria identified Cx Nom [...] Locations R1: This test was performed at: [facility], [address] [place] [address], [facility]- , , [facility] Comment on above: Performed By: #### 2 [id number] ####[facility] [address] [place] [address] Ambulatory Visit Summaryon 0 04-18-2023 Ambulatory Visit [...] Lisa Porras MD Where: [facility] [place] 02-23-2023 Screens [id number] CD:127 [facility] Ambulatory Visit Summaryon 0 02-22-2023 Ambulatory Visit Summary AISLINN WHEELER :1960 Visit Date:02/22/2023 Ambulatory Visit Instructions Your Diagnosis Renal mass Renal cyst Mixed incontinence Feeling of incomplete bladder emptying Glucosuria Tests Performed Urnls Dip Stick Auto w/o Microscopy POC 21307 Your Care Team Attending Physician - Lisa [...] Where: [facility] [place] Normal [facility] Patient Educationon 02-23-20 Patient Education [...] provider. Document Revised: 12/16/2021 Document Reviewed: 12/16/2021 [employer] Patient Education ? 2022 [employer] Fabio Zaragoza [facility] Urology Office/Clinic Noteon 02-22-2023 Urology Office/Clinic [...] PSH lap cholecystectomy, open hysterectomy -Continues with supervisor customer records division after referred last visit 1. Renal mass [...] stopped and the (more content not included)... [facility] Comment on above: Result Comment: Elec tronically Signed By: Vern TAVERAS, Lisa Montiel\.br\Date and Time Signed: 02/22/23 10:14 EDT\.br\Electronically Co-Signed By: Marilee Gray.br\Date and Time Co-Signed: 02/22/23 09:36 EDT Lab Reportson 02-20-2023 Lab Reports [id number]#1.00C D:127 [facility] RAD - CT Reporton 02-20-2023 RAD - CT Report [id number]#1.00CD :127 [facility] Physician Orderon 02-01-2023 Physician Order [id number]#1.00CD :127 [facility] Consultation Noteon 01-08-20 Consultation Note [id number]#1.00C D:127 Normal [facility] XR FOOT LT MIN 3 VIEWSon XR FOOT LT MIN 3 VIEWS Normal [facility] MG MAMM SCREEN 3D ALINE CADon 12-28-2022 MG MAMM SCREEN 3D ALINE CAD Normal [facility] XR DEXA BONE DENSITYon 12-28 XR DEXA BONE DENSITY Normal [facility] NM STRESS/REST MULTIon 12-15 NM STRESS/REST MULTI Normal [facility] XR FOOT LT MIN 3 VIEWSon XR FOOT LT MIN 3 VIEWS Normal [facility] Physician Referralon 023 Physician Referral [id number]#1.00C D:127 Normal [facility] CT FOOT LT WO CONon 10-28-19 CT FOOT LT WO CON Normal [facility] XR FOOT LT MIN 3 VIEWSon XR FOOT LT MIN 3 VIEWS Normal [facility] XR FOOT LT MIN 3 VIEWSon XR FOOT LT MIN 3 VIEWS Normal [facility] XR FOOT LT MIN 3 VIEWSon XR FOOT LT MIN 3 VIEWS Normal [facility] XR FOOT LT MIN 3 VIEWSon XR FOOT LT MIN 3 VIEWS Normal [facility] XR FOOT LT MIN 3 VIEWSon XR FOOT LT MIN 3 VIEWS Normal [facility] US KIDNEYSon 09-15-2022 US KIDNEYS Normal [facility] XR FOOT LT MIN 3 VIEWSon XR FOOT LT MIN 3 VIEWS Normal [facility] XR FOOT LT MIN 3 VIEWSon XR FOOT LT MIN 3 VIEWS Normal [facility] XR FOOT LT MIN 3 VIEWSon XR FOOT LT MIN 3 VIEWS Normal [facility] CBC AUTO DIFFon 08-03-2022 BASO # 0.0 103/ul Normal 0.0-0.1 [facility] Comment on above: Performed By: #### C BC ####[facility] [address] [place] [id number]. Ricardo Rocha Basophils/100 WBC (Bld) 0.5 % Normal 0.2-2.0 [facility] Comment on above: Performed By: #### C BC ####[facility] Re[address]ct[address] [place] [id number]. Ricardo Rocha EO # 0.1 103/ul Normal 0.0-0.7 [facility] Comment on above: Performed By: #### C BC ####[facility] [address] [place], [place] [address]Dr. Ricardo Rocha Eosinophils/100 WBC (Bld) 1.2 % Normal 0.9-7.0 [facility] Comment on above: Performed By: #### C BC ####[facility] [address] [place], [place] [address]Dr. Ricardo Rocha Erythrocyte distribution width (RBC) [Ratio] 15.0 % Normal 11.0-15.0 [facility] [place] [facility] Comment on above: Performed By: #### C BC ####[facility] [address] [place], [place] [address]Dr. Ricardo Rocha Hematocrit (Bld) [Volume fraction] 29.5 % Critically low 36.0-48.0 [facility] [place] [facility] Comment on above: Performed By: #### C BC ####[facility] [address] [place] [phone]. Ricardo Rocha Hemoglobin (Bld) [Mass/Vol] 9.3 g/dL Critically low 12.0-16.0 [facility] Comment on above: Performed By: #### C BC ####[facility] [address] [place] [id number]. Ricardo Rocha IG # 0.04 10e3/ul Critically high 0.00-0.03 [facility] Comment on above: Performed By: #### C BC ####[facility] [address]qc[address] [place] [id number]. Ricardo Rocha IG % 0.5 % Normal 0.0-0.5 [facility] Comment on above: Performed By: #### C BC ####[facility] Ag[address]ysz[address] [place] [id number]. Ricardo Rocha LYMPH # 1.4 103/ul Normal 1.2-3.8 [facility] Comment on above: Performed By: #### C BC ####[facility] Ct[address]ksun[address]w4097 [place], [place] [address]Xu. Ricardo Rocha Lymphocytes/100 WBC (Bld) 17.2 % Critically low 20.5-60.0 [facility] Comment on above: Performed By: #### C BC ####[facility] [address] [place] [id number]. Ricardo Rocha MANUAL DIFF REQ NO Normal [facility] Comment on above: Performed By: #### C BC ####[facility] T[address] [place] [phone]. Ricardo Aj MCH (RBC) [Entitic mass] 25.2 pg Critically low 26.7-34.0 [facility] Comment on above: Performed By: #### C BC ####[facility] [address] [place] [phone]. Ricardo Rocha MCHC (RBC) [Mass/Vol] 31.5 g/dL Normal 29.9-35.2 [facility] Comment on above: Performed By: #### C BC ####[facility] [address] [place] [phone]. Ricardo Rocha MCV (RBC) [Entitic vol] 79.9 fL Critically low 81.0-99.0 [facility] Comment on above: Performed By: #### C BC ####[facility] Qx[address]xx[address]rb[address] [place] [phone]. Ricardo Rocha MONO # 0.6 103/ul Normal 0.3-0.8 [facility] Comment on above: Performed By: #### C BC ####[facility] [address]htzg[address] [place] [phone]. Ricardo Aj Monocytes/100 WBC (Bld) 7.6 % Normal 1.7-12.0 [facility] Comment on above: Performed By: #### C BC ####[facility] [address] [place], [place] [address]El. Ricardo Rocha NEUT # 5.9 103/ul Normal 1.4-6.5 [facility] Comment on above: Performed By: #### C BC ####[facility] Niacualizb[address]96 [place], [place] [address]Ob. Ricardo Rocha Neutrophils/100 WBC (Bld) 73.0 % Normal 43.0-75.0 [facility] Comment on above: Performed By: #### C BC ####[facility] [address]xso[address]fi[address] [place] [phone]. Ricardo Rocha Platelet mean volume (Bld) [Entitic vol] 11.4 fL Normal 9.5-13.5 [facility] [place] [facility] Comment on above: Performed By: #### C BC ####[facility] Erqkzteyjd[address] [place] [id number]. Ricardo Rocha PLT 253 103/ul Normal 150-450 [facility] Comment on above: Performed By: #### C BC ####[facility] Ncatxunanp[address] [place] [id number]. Ricardo Rocha RBC 3.69 106/ul Critically low 4.20-5.[address] [facility] Comment on above: Performed By: #### C BC ####[facility] Ggwo[address]oyv[address] [place] [id number]. Ricardo Rocha WBC 8.0 103/ul Normal 4.0-11.0 [facility] Comment on above: Performed By: #### C BC ####[facility] Rcjreqcwqp[address] [place] [phone]. Ricardo Rocha CRPon 08-03-2022 CRP 3.1 mg/dL Critically high <=1.[address] [facility] Comment on above: Performed By: #### C RP, BMP, URIC ####[facility] Onpaqixyxb[address] [place] [phone]. Ricardo Rocha CULTURE BLOODon 08-03-2022 Microscopic examination of blood, culture Culture Observations: NO GROWTH AT 5 DAYS. Normal [facility] Comment on above: Performed By: #### B LDCX2 ####[facility] G[address] [place], [place] [address]Dr. Nanomarcial Aj Microscopic examination of blood, culture Culture Observations: NO GROWTH AT 5 DAYS. Normal [facility] Comment on above: Performed By: #### B LDCX1 ####[facility] [address] [place], [place] [address]Dr. Nanomarcial Rocha ER URINE PROFILEon 2 Bilirubin Ql (U) Negative Normal NEGATIVE [facility] Comment on above: Performed By: #### E RUR ####[facility] J[address]chps[address] [place], [place] [address]Dr. Ricardo Rocha Clarity (U) CLEAR Normal CLEAR [facility] Comment on above: Performed By: #### E RUR ####[facility] [address] [place], [place] [address]Dr. Nanolan Rocha Color (U) LT. YELLOW Normal YELLOW [facility] Comment on above: Performed By: #### E RUR ####[facility] Ilf[address] [place], [place] [address]Dr. Ricardo Rocha ERUAHD A micrscopic examination will be performed if indicated. Normal [facility] Comment on above: Performed By: #### E RUR ####[facility] Qbvmuawutj[address] [place], [place] [address]Dr. Nanomarcial Rocha Glucose Ql (U) 100 mg/dl Abnormal NEGATIVE [facility] Comment on above: Performed By: #### E RUR ####[facility] Rkajtoxmxk[address] [place], [place] [address]Dr. Nanolan Rocha Hemoglobin Ql (U) Negative Normal NEGATIVE [facility] Comment on above: Performed By: #### E RUR ####[facility] Ijghilerpt[address] [place], [place] [address]Dr. Nanolan Rocha Ketones Ql (U) Negative Normal NEGATIVE [facility] Comment on above: Performed By: #### E RUR ####[facility] Jlswaegyar[address] [place], [place] [address]Dr. Nanolan Rocha LEUKOCYTES Negative Normal NEGATIVE [facility] Comment on above: Performed By: #### E RUR ####[facility] Vd[address]jpm[address] [place] [address]Dr. Ricardo Rocha Nitrite Ql (U) Negative Normal NEGATIVE [facility] Comment on above: Performed By: #### E RUR ####[facility] Oreqyvdxxf0491 [place] [address]Dr. Ricardo Rocha pH (U) 6.0 [pH] Normal 5-9 [facility] [place] [facility] Comment on above: Performed By: #### E RUR ####[facility] Gsypmcmxqu[address] [place], [place] [address]Dr. Ricardo Rocha SPEC GRAVITY 1.010 Normal 1.005-<=1.02 5 [facility] [place] [facility] Comment on above: Performed By: #### E RUR ####[facility] Vr[address]eok[address] [place], [place] [address]Dr. Ricardo Rocha UA PROTEIN Negative Normal NEGATIVE/ TRACE [facility] [place] [facility] Comment on above: Performed By: #### E RUR ####[facility] Vunrot[address] [place], [place] [address]Dr. Ricardo Rocha UR MICRO IND NOT INDICATED Normal [facility] [place] Comment on above: Performed By: #### E RUR ####[facility] [address]xft[address]waqse[address] [place], [place] [address]Dr. Ricardo Rocha Urobilinogen Qn (U) 0.2 {Madeleine'U}/dL Normal 0.2 - 1. 0 [facility] [place] [facility] Comment on above: Performed By: #### E RUR ####[facility] [address]vziudhx[address] [place], [place] [address]Dr. Ricardo Rocha LACTATE/LACTIC ACIDon 2021 Lactate [Moles/Vol] 0.5 mmol/L Normal 0.4-1.9 [facility] Comment on above: Performed By: #### L ACT ####[facility] Xgnmconelg[address] [place], [place] [address]Dr. Ricardo Rocha PROF CHEM 8 (BAS METB)on Anion gap [Moles/Vol] 12.9 mmol/L Normal [facility] [place] [facility] Comment on above: Performed By: #### C RP, BMP, URIC ####[facility] G[address]cc[address] [place] [address]Dr. Ricardo Rocha Calcium [Mass/Vol] 9.0 mg/dL Normal 8.5-10.1 [facility] Comment on above: Performed By: #### C RP, BMP, URIC ####[facility] Tmvqnksjuy[address] [place] [address]Dr. Ricardo Rocha Chloride [Moles/Vol] 102 mmol/L Normal 98-107 [facility] [place] [facility] Comment on above: Performed By: #### C RP, BMP, URIC ####[facility] Npluetupvd7183 [place] [address]Dr. Ricardo Rocha CO2 [Moles/Vol] 23.9 mmol/L Normal 21.0-32.0 [facility] Comment on above: Performed By: #### C RP, BMP, URIC ####[facility] [address] [place], [place] [address]Dr. Ricardo Rocha Creatinine [Mass/Vol] 1.36 mg/dL Critically high 0.55-1.02 [facility] [place] [facility] Comment on above: Performed By: #### C RP, BMP, URIC ####[facility] Nsulebeuni[address] [place], [place] [address]Dr. Ricardo Rocha EGFR-AF ROMANIAN 47 mL/min/1.73m2 Critically low >=60 [facility] [place] [facility] Comment on above: Performed By: #### C RP, BMP, URIC ####[facility] [address]prxugkzw[address] [place], [place] [address]Dr. Ricardo Rocha EGFR-NON AF ROMANIAN 39 mL/min/1.73m2 Critically low >=60 [facility] [place] [facility] Comment on above: Performed By: #### C RP, BMP, URIC ####[facility] I[address]wthhbtt[address] [place], [place] [address]Dr. Ricardo Rocha Glucose [Mass/Vol] 125 mg/dL Critically high 74-106 [facility] Comment on above: Performed By: #### C RP, BMP, URIC ####[facility] W[address]dafzlfk9[address] [place] [id number]. Ricardo Rocha Potassium [Moles/Vol] 4.8 mmol/L Normal 3.5-5.1 [facility] Comment on above: Performed By: #### C RP, BMP, URIC ####[facility] Iuf[address]qsojg[address] [place] [address]Dr. Ricardo Rocha Sodium [Moles/Vol] 134 mmol/L Critically low 136-145 [facility] Comment on above: Performed By: #### C RP, BMP, URIC ####[facility] Jtvrjlbsvj0413 [place] [address]Dr. Ricardo Rocha Urea nitrogen [Mass/Vol] 22.0 mg/dL Critically high 7.0-18.0 [facility] [place] [facility] Comment on above: Performed By: #### C RP, BMP, URIC ####[facility] Ltssodcgid3798 [place] [address]Dr. Ricardo Rocha Urea nitrogen/Creatinine [Mass ratio] 16.2 mg/mg Normal [facility] Comment on above: Performed By: #### C RP, BMP, URIC ####[facility] Jlwcxwfulu1286 [place] [address]Dr. Ricardo Rocha [facility] SED RATE 95 mm/hr Critically high <=30 [facility] [place] Comment on above: Performed By: #### S EDR ####[facility] [address]jbv[address] [place], [place] [address]Dr. Ricardo Rocha URIC ACID SERUMon 08-03-2022 Urate [Mass/Vol] 4.7 mg/dL Normal 2.6-6.0 [facility] Comment on above: Performed By: #### C RP, BMP, URIC ####[facility] J[address]obcvccdd[address] [place], [place] [address]Dr. Ricardo Rocha XR FOOT LT MIN 3 VIEWSon XR FOOT LT MIN 3 VIEWS Normal [facility] PROF CHEM 8 (BAS METB)on Anion gap [Moles/Vol] 13.8 mmol/L Normal [facility] Comment on above: Performed By: #### B MP ####[facility] Zcmpvcyuyg[address]994 [place] [id number]. Ricardo Rocha Calcium [Mass/Vol] 8.9 mg/dL Normal 8.5-10.1 [facility] Comment on above: Performed By: #### B MP ####[facility] Wpdttrpzbo9802 [place] [id number]. Ricardo Rocha Chloride [Moles/Vol] 101 mmol/L Normal 98-107 [facility] [place] [facility] Comment on above: Performed By: #### B MP ####[facility] Lxwrsvoulr7421 [place] [address]Dr. Ricardo Rocha CO2 [Moles/Vol] 22.8 mmol/L Normal 21.0-32.0 [facility] Comment on above: Performed By: #### B MP ####[facility] [address]xe[address] [place], [place] [address]Dr. Ricardo Rocha Creatinine [Mass/Vol] 1.43 mg/dL Critically high 0.55-1.02 [facility] [place] [facility] Comment on above: Performed By: #### B MP ####[facility] [address]fe[address]npkeh[address] [place], [place] [address]Dr. Ricardo Rocha EGFR-AF ROMANIAN 45 mL/min/1.73m2 Critically low >=60 [facility] [place] [facility] Comment on above: Performed By: #### B MP ####[facility] [address]ckgbp[address] [place], [place] [address]Dr. Ricardo Rocha EGFR-NON AF ROMANIAN 37 mL/min/1.73m2 Critically low >=60 [facility] [place] [facility] Comment on above: Performed By: #### B MP ####[facility] Rjnlmqzosv[address] [place], [place] [address]Dr. Riacrdo Rocha Glucose [Mass/Vol] 279 mg/dL Critically high 74-106 [facility] Comment on above: Performed By: #### B MP ####[facility] [address]ges[address]zk[address] [place], [place] [address]Dr. Ricardo Rocha Potassium [Moles/Vol] 4.6 mmol/L Normal 3.5-5.1 [facility] [place] [facility] Comment on above: Performed By: #### B MP ####[facility] Tpxftnqobi[address] [place] [id number]. Ricardo Rocha Sodium [Moles/Vol] 133 mmol/L Critically low 136-145 Th [facility] Comment on above: Performed By: #### B MP ####[facility] Vezbptyipm2385 [place] [id number]. Ricardo Rocha Urea nitrogen [Mass/Vol] 24.0 mg/dL Critically high 7.0-18.0 [facility] [place] [facility] Comment on above: Performed By: #### B MP ####[facility] Afxmwrth[address] [place], [place] [address]Dr. Ricardo Rocha Urea nitrogen/Creatinine [Mass ratio] 16.8 mg/mg Normal [facility] [place] [facility] Comment on above: Performed By: #### B MP ####[facility] [address]kgwmtnsq[address] [place], [place] [address]Dr. Ricardo Rocha ACID FAST SMEAR AND CXon Acid Fast Culture Negative Normal [facility] Comment on above: Result Comment: No a amilcar fast bacilli isolated after 6 weeks. Performed By: #### A FB ####[facility] Jzgdvaflyh[address] [place], [place] [address]Dr. Ricardo Rocha Acid Fast Smear Negative Normal [facility] Comment on above: Performed By: #### A FB ####[facility] [address]vatyo[address] [place], [place] [address]Dr. Ricardo Rocha [employer] Specimen Processing Direct Inoculation [facility] Comment on above: Performed By: #### A FB ####[facility] [address]ttogpjwh[address] [place], [place] [address]Dr. Ricardo Rocha [employer] Specimen Processing Tissue Grinding [facility] Comment on above: Performed By: #### A FB ####[facility] Im[address] [place], [place] [address]Dr. Ricardo Rocha FUNGAL CULTUREon 07-11-2022 Fungus (Mycology) Culture Final report [facility] Comment on above: Performed By: #### C XFUN ####[facility] Jarhaaslai[address] [place], [place] [address]Dr. Ricardo Rocha Fungus Stain Final report Normal [facility] Comment on above: Performed By: #### C XFUN ####[facility] Zkiicqmysy[address] [place] [address]Dr. Ricardo Rocha Result 1 Comment Normal [facility] [place] [facility] Comment on above: Result Comment: AAYUSH/ Calcofluor preparation: no fungus observed. Performed By: #### C XFUN ####[facility] Ehuiyozkby90[address] [place] [address]Dr. Ricardo Rocha Result Comment: No y east or mold isolated after 4 weeks. PROF CHEM 8 (BAS METB)on Anion gap [Moles/Vol] 15.1 mmol/L Normal [facility] [place] [facility] Comment on above: Performed By: #### B MP ####[facility] I[address]qyrimom[address] [place], [place] [address]Dr. Ricardo Rocha Calcium [Mass/Vol] 9.0 mg/dL Normal 8.5-10.1 [facility] Comment on above: Performed By: #### B MP ####[facility] Swgcayvjtz[address] [place], [place] [address]Dr. Ricardo Rocha Chloride [Moles/Vol] 101 mmol/L Normal 98-107 [facility] Comment on above: Performed By: #### B MP ####[facility] Fbxuwstbjj[address] [place], [place] [address]Dr. Ricardo Rocha CO2 [Moles/Vol] 18.5 mmol/L Critically low 21.0-32.0 [facility] Comment on above: Performed By: #### B MP ####[facility] Obygiggnzs[address] [place] [address]Dr. Ricardo Rocha Creatinine [Mass/Vol] 2.05 mg/dL Critically high 0.55-1.02 [facility] [place] [facility] Comment on above: Performed By: #### B MP ####[facility] [address]pekcsxo[address] [place], [place] [address]Dr. Ricardo Rocha EGFR-AF ROMANIAN 30 mL/min/1.73m2 Critically low >=60 [facility] Comment on above: Performed By: #### B MP ####[facility] Nrhykbigbw5545 [place] [id number]. Ricardo Rocha EGFR-NON AF ROMANIAN 24 mL/min/1.73m2 Critically low >=60 [facility] [place] [facility] Comment on above: Performed By: #### B MP ####[facility] Gmbtrdhdjy1510 [place] [id number]. Nanomarcial Rocha Glucose [Mass/Vol] 134 mg/dL Critically high 74-106 T [place] [facility] Comment on above: Performed By: #### B MP ####[facility] F[address]cdtie[address] [place], [place] [address]Dr. Ricardo Rocha Potassium [Moles/Vol] 5.6 mmol/L Critically high 3.5-5.1 [facility] [place] [facility] Comment on above: Performed By: #### B MP ####[facility] Oxeqtyxcob[address] [place], [place] [address]Dr. Ricardo Rocha Sodium [Moles/Vol] 129 mmol/L Critically low 136-145 Th [facility] Comment on above: Performed By: #### B MP ####[facility] [address]vihyotwzv[address] [place], [place] [address]Dr. Ricardo Rocha Urea nitrogen [Mass/Vol] 57.0 mg/dL Critically high 7.0-18.0 [facility] [place] [facility] Comment on above: Performed By: #### B MP ####[facility] [facility] [address] [place], [place] [address]Dr. Ricardo Rocha Urea nitrogen/Creatinine [Mass ratio] 27.8 mg/mg Normal [facility] [place] [facility] Comment on above: Performed By: #### B MP ####[facility] Minhecpnlg[address] [place], [place] [address]Dr. Nanomarcial Aj CBC AUTO DIFFon 07-06-2022 BASO # 0.0 103/ul Normal 0.0-0.1 [facility] [place] [facility] Comment on above: Performed By: #### C BC ####[facility] Smhisglcht[address] [place], [place] [address]Dr. Ricardo Rocha Basophils/100 WBC (Bld) 0.6 % Normal 0.2-2.0 [facility] [place] [facility] Comment on above: Performed By: #### C BC ####[facility] Prgqxdilkl8550 [place] [phone]. Ricardo Rocha EO # 0.1 103/ul Normal 0.0-0.7 [facility] Comment on above: Performed By: #### C BC ####[facility] Xwchqouyvr[address] [place], [place] [address]Dr. Ricardo Rocha Eosinophils/100 WBC (Bld) 1.7 % Normal 0.9-7.0 [facility] [place] [facility] Comment on above: Performed By: #### C BC ####[facility] Nqxxmhcfgc19[address] [place], [place] [address]Dr. Ricardo Rocha Erythrocyte distribution width (RBC) [Ratio] 15.2 % Critically high 11.0-15.0 [facility] [place] [facility] Comment on above: Performed By: #### C BC ####[facility] Rqwelmztzn[address] [place], [place] [address]Dr. Ricardo Rocha Hematocrit (Bld) [Volume fraction] 34.6 % Critically low 36.0-48.0 [facility] [place] [facility] Comment on above: Performed By: #### C BC ####[facility] Kpjpkxqcn[address] [place], [place] [address]Dr. Ricardo Rocha Hemoglobin (Bld) [Mass/Vol] 10.5 g/dL Critically low 12.0-16.0 [facility] [place] [facility] Comment on above: Performed By: #### C BC ####[facility] Epkuehsieq35[address] [place], [place] [address]Dr. Ricardo Rocha IG # 0.01 10e3/ul Normal 0.00-0.03 [facility] Comment on above: Performed By: #### C BC ####[facility] Vyysjaqwjo38[address] [place], [place] [address]Dr. Ricardo Rocha IG % 0.2 % Normal 0.0-0.5 [facility] Comment on above: Performed By: #### C BC ####[facility] Gtcvhtolkv0924[address] [place], [place] [address]Dr. Nanomarcial Rocha LYMPH # 2.4 103/ul Normal 1.2-3.8 [facility] Comment on above: Performed By: #### C BC ####[facility] Gwgtguqgwn8182 [place] [phone]. Nanomarcial Rocha Lymphocytes/100 WBC (Bld) 44.4 % Normal 20.5-60.0 [facility] [place] [facility] Comment on above: Performed By: #### C BC ####[facility] Brmwmkgjpl4334 [place] [phone]. Ricardo Rocha MANUAL DIFF REQ NO Normal [facility] Comment on above: Performed By: #### C BC ####[facility] Nwtdefzaih9242 [place] [phone]. Ricardo Rocha MCH (RBC) [Entitic mass] 25.0 pg Critically low 26.7-34.0 [facility] [place] [facility] Comment on above: Performed By: #### C BC ####[facility] Uqnckzpblv01[address] [place], [place] [address]Dr. Ricardo Rocha MCHC (RBC) [Mass/Vol] 30.3 g/dL Normal 29.9-35.2 [facility] [place] [facility] Comment on above: Performed By: #### C BC ####[facility] Kicqtw[address]xf[address] [place], [place] [id number]. Ricardo Rocha MCV (RBC) [Entitic vol] 82.4 fL Normal 81.0-99.0 [facility] [place] [facility] Comment on above: Performed By: #### C BC ####[facility] Nnxidksgaw[address] [place], [place] [address]Dr. Ricardo Rocha MONO # 0.3 103/ul Normal 0.3-0.8 [facility] Comment on above: Performed By: #### C BC ####[facility] Rjlouqvhuo[address] [place], [place] [address]Dr. Ricardo Rocha Monocytes/100 WBC (Bld) 5.1 % Normal 1.7-12.0 [facility] Comment on above: Performed By: #### C BC ####[facility] Whmqsjjbmv33[address] [place], [place] [address]Dr. Ricardo Rocha NEUT # 2.5 103/ul Normal 1.4-6.5 [facility] Comment on above: Performed By: #### C BC ####[facility] Qtmavufema4586 [place] [phone]. Ricardo Rocha Neutrophils/100 WBC (Bld) 48.0 % Normal 43.0-75.0 [facility] [place] [facility] Comment on above: Performed By: #### C BC ####[facility] Fqpjtcotxv2947 [place] [phone]. Ricardo Rocha Platelet mean volume (Bld) [Entitic vol] 10.7 fL Normal 9.5-13.5 [facility] [place] [facility] Comment on above: Performed By: #### C BC ####[facility] Mwowxwtzsr3059 [place] [phone]. Ricardo Rocha PLT 261 103/ul Normal 150-450 [facility] [place] [facility] Comment on above: Performed By: #### C BC ####[facility] Qlqszowkme4973 [place] [phone]. Ricardo Rocha RBC 4.20 106/ul Normal 4.20-5.40 [facility] [place] [facility] Comment on above: Performed By: #### C BC ####[facility] Zjvpkymbbl6938 [place] [phone]. Ricardo Rocha WBC 5.3 103/ul Normal 4.0-11.0 [facility] [place] [facility] Comment on above: Performed By: #### C BC ####[facility] Yndbermlvm2495 [place] [phone]. Ricardo Rocha GLYCOHEMOGLOBIN A1Con 2021 ADA RECOMMENDATION SEE BELOW Normal [facility] Comment on above: Result Comment: ADA RECOMMENDED LIMIT 4.0 - 6.0 ADA THERAPEUTIC TARGET < 7.0 ACTION SUGGESTED > 7.0 Performed By: #### A 1C ####[facility] Tujhibyitz6151 [place] [phone]. Ricardo Rocha Glucose [Mass/Vol] 289 mg/dL Normal [facility] Comment on above: Performed By: #### A 1C ####[facility] Fstrzzxwra8438 [place] [phone]. Ricardo Rocha HbA1c (Bld) [Mass fraction] 11.7 % Critically high 4.5-6.2 [facility] [place] [facility] Comment on above: Performed By: #### A 1C ####[facility] Dgzzymwjdd0070 [place] [phone]. Ricardo Rocha LIPID PROFILEon 07-06-2022 CHOL-HDL RATIO NORM SEE BELOW Normal [facility] Comment on above: Result Comment: 3.3 - 4.4 LOW RISK 4.4 - 7.1 AVERAGE RISK 7.1 - 11.0 MODERATE RISK >11.0 HIGH RISK Performed By: #### T SH, CMP, LIPID ####[facility] Jutdgxbdcx4221 [place], [place] [address]Jo. Ricardo Rocha Cholesterol [Mass/Vol] 284 mg/dL Critically high <=200 [facility] [place] [facility] Comment on above: Performed By: #### T SH, CMP, LIPID ####[facility] Bmjnshmxmw1319 [place], [place] [address]Et. Ricardo Rocha Cholesterol in HDL [Mass/Vol] 40 mg/dL Normal 40-60 [facility] [place] [facility] Comment on above: Performed By: #### T SH, CMP, LIPID ####[facility] Sequocjxwr4291 [place] [phone]. Ricardo Rocha Cholesterol in LDL [Mass/Vol] 167.8 mg/dL Normal [facility] [place] [facility] Comment on above: Performed By: #### T SH, CMP, LIPID ####[facility] Fkdcnndkgm3944 [place], [place] [address]Sv. Ricardo Rocha Cholesterol.total/Ch olesterol in HDL [Mass ratio] 7.1 {ratio} Normal [facility] [place] [facility] Comment on above: Performed By: #### T SH, CMP, LIPID ####[facility] Njtsqjfrqw2299 [place], [place] [address]Zd. Nanolan Rocha HDL NORMAL > or = 60 mg/dl - LO W CARDIOVASCULAR RISK <40 mg/dl - HIGH CARDIOVASCULAR RISK Normal [facility] [place] [facility] Comment on above: Performed By: #### T SH, CMP, LIPID ####[facility] Hwtpfhhgfs9070 [place], [place] [address]Nj. Ricardo Rocha LDL CALC NORMAL SEE BELOW Normal [facility] Comment on above: Result Comment: <100 mg/dl OPTIMAL 100 - 129 mg/dl NEAR OR ABOVE OPTIMAL 130 - 159 mg/dl BORDERLINE HIGH 160 - 189 mg/dl HIGH >190 mg/dl VERY HIGH Performed By: #### T SH, CMP, LIPID ####[facility] Mrpitzzeqp3261 [place] [address]Dr. Ricardo Rocha Triglyceride [Mass/Vol] 381 mg/dL Critically high <=150 [facility] [place] [facility] Comment on above: Performed By: #### T SH, CMP, LIPID ####[facility] Qrbumrnfxn2166 [place] [address]Dr. Ricardo Rocha VLDL CALC 76.2 mg/dL Normal [facility] [place] [facility] Comment on above: Performed By: #### T SH, CMP, LIPID ####[facility] Ryaevcvzfs6839 [place] [address]Dr. Ricardo Rocha MICROALBUMIN, RAND URon 11- mALB <1.3 Normal <=30.0 [facility] [place] [facility] Comment on above: Performed By: #### M ALBR ####[facility] Ckbqdhjkwx2678 [place] [address]Dr. Ricardo Rocha PROF 14(COMP METB)on 022 Albumin [Mass/Vol] 3.3 g/dL Critically low 3.4-5.0 [facility] Comment on above: Performed By: #### T SH, CMP, LIPID ####[facility] Ipiuxmoskl7645 [place] [address]Dr. Ricardo Rocha Albumin/Globulin [Mass ratio] 0.5 {ratio} Normal [facility] [place] [facility] Comment on above: Performed By: #### T SH, CMP, LIPID ####[facility] Fxuaxnxnie3311 [place] [address]Dr. Ricardo Rocha ALP [Catalytic activity/Vol] 129 U/L Critically high 46-116 [facility] Comment on above: Performed By: #### T SH, CMP, LIPID ####[facility] Jurhxsiumu6800 [place] [address]Dr. Ricardo Rocha ALT [Catalytic activity/Vol] 22 U/L Normal 14-59 [facility] [place] [facility] Comment on above: Performed By: #### T SH, CMP, LIPID ####[facility] Gclmsgrlvy0804 [place] [address]Dr. Ricardo Rocha Anion gap [Moles/Vol] 16.1 mmol/L Normal [facility] [place] [facility] Comment on above: Performed By: #### T SH, CMP, LIPID ####[facility] Omvdpxdunf9318 [place] [address]Dr. Ricardo Rocha AST [Catalytic activity/Vol] 22 U/L Normal 15-37 [facility] Comment on above: Performed By: #### T SH, CMP, LIPID ####[facility] Zqesnsbcat2309 [place] [address]Dr. Ricardo Rocha Bilirubin [Mass/Vol] 0.2 mg/dL Normal 0.2-1.0 [facility] [place] [facility] Comment on above: Performed By: #### T SH, CMP, LIPID ####[facility] Xmakfymiym6578 [place] [address]Dr. Ricardo Rocha Calcium [Mass/Vol] 9.4 mg/dL Normal 8.5-10.1 [facility] Comment on above: Performed By: #### T SH, CMP, LIPID ####[facility] Gqjzmwlgmk[address] [place], [place] [address]Dr. Ricardo Rocha Chloride [Moles/Vol] 102 mmol/L Normal 98-107 [facility] Comment on above: Performed By: #### T SH, CMP, LIPID ####[facility] Baaszzkrvb3693 [place] [address]Dr. Ricardo Rocha CO2 [Moles/Vol] 18.4 mmol/L Critically low 21.0-32.0 [facility] Comment on above: Performed By: #### T SH, CMP, LIPID ####[facility] Qyvkobbydh7574 [place] [address]Dr. Ricardo Rocha Creatinine [Mass/Vol] 2.01 mg/dL Critically high 0.55-1.02 [facility] [place] [facility] Comment on above: Performed By: #### T SH, CMP, LIPID ####[facility] Usdgvnobww[address] [place], [place] [address]Dr. Ricardo Rocha EGFR-AF ROMANIAN 30 mL/min/1.73m2 Critically low >=60 [facility] [place] [facility] Comment on above: Performed By: #### T SH, CMP, LIPID ####[facility] Fuiobxrspz9076 [place] [address]Dr. Ricardo Rocha EGFR-NON AF ROMANIAN 25 mL/min/1.73m2 Critically low >=60 [facility] [place] [facility] Comment on above: Performed By: #### T SH, CMP, LIPID ####[facility] Xgvfcqntnv8549 [place] [address]Dr. Ricardo Rocha Globulin (S) [Mass/Vol] 6.3 g/dL Normal [facility] [place] [facility] Comment on above: Performed By: #### T SH, CMP, LIPID ####[facility] Faemhdlxrp5871 [place] [address]Dr. Nanomarcial Rocha Glucose [Mass/Vol] 118 mg/dL Critically high 74-106 [facility] Comment on above: Performed By: #### T SH, CMP, LIPID ####[facility] Uebdxycgfu[address] [place], [place] [address]Dr. Nanomarcial Rocha Potassium [Moles/Vol] 5.5 mmol/L Critically high 3.5-5.1 [facility] [place] [facility] Comment on above: Performed By: #### T SH, CMP, LIPID ####[facility] Nqzvxlvcez0831 [place] [address]Dr. Ricardo Rocha Protein [Mass/Vol] 9.6 g/dL Critically high 6.4-8.2 [facility] Comment on above: Performed By: #### T SH, CMP, LIPID ####[facility] Cnczhxrtsu6584 [place] [address]Dr. Ricardo Rocha Sodium [Moles/Vol] 131 mmol/L Critically low 136-145 [facility] Comment on above: Performed By: #### T SH, CMP, LIPID ####[facility] Junpqpgqki0213 [place] [address]Dr. Ricardo Rocha Urea nitrogen [Mass/Vol] 45.0 mg/dL Critically high 7.0-18.0 [facility] [place] [facility] Comment on above: Performed By: #### T SH, CMP, LIPID ####[facility] Glvqlmrrsk0280 [place] [address]Dr. Ricardo Rocha Urea nitrogen/Creatinine [Mass ratio] 22.4 mg/mg Normal [facility] Comment on above: Performed By: #### T SH, CMP, LIPID ####[facility] Rktntkspxi5939 [place] [phone]. Ricardo Rocha TSHon 07-06-2022 TSH 1.178 uIU/mL Normal 0.358-3.740 [facility] Comment on above: Performed By: #### T SH, CMP, LIPID ####[facility] Livnkabcwj4437 [place] [address]Dr. Ricardo Rocha UA RANDOM W/MICROSCOPICon BACTERIA NONE SEEN Normal NONE SEEN [facility] Comment on above: Performed By: #### U AMIC ####[facility] Itnrekbtsc[address] [place], [place] [address]Dr. Ricardo Rocha Bilirubin Ql (U) Negative Normal NEGATIVE [facility] Comment on above: Performed By: #### U AMIC ####[facility] Vsixvphpuu[address] [place], [place] [address]Dr. Ricardo Rocha CAST NONE SEEN Normal NONE SEEN [facility] [place] [facility] Comment on above: Performed By: #### U AMIC ####[facility] Tfjyffpuwi1206 [place] [address]Dr. Ricardo Rocha Clarity (U) CLEAR Normal CLEAR [facility] Comment on above: Performed By: #### U AMIC ####[facility] Pwzqrduxvb4855 [place] [address]Dr. Ricardo Rocha Color (U) LT. YELLOW Normal YELLOW [facility] Comment on above: Performed By: #### U AMIC ####[facility] Mixtakudlf[address] [place], [place] [address]Dr. Ricardo Rocha Crystals LM Nom (Urine sed) NONE SEEN Normal NONE SEEN [facility] Comment on above: Performed By: #### U AMIC ####[facility] Ohqcdhoerv24[address] [place], [place] [address]Dr. Ricardo Rocha Epithelial cells LM Ql (Urine sed) NONE SEEN Normal NONE SEEN /RARE [facility] Comment on above: Performed By: #### U AMIC ####[facility] Gfgqaxstye3321 [place] [address]Dr. Ricardo Rocha Glucose Ql (U) Negative Normal NEGATIVE [facility] Comment on above: Performed By: #### U AMIC ####[facility] Embixtxrqr1137 [place] [address]Dr. Nanomarcial Aj Hemoglobin Ql (U) Negative Normal NEGATIVE [facility] Comment on above: Performed By: #### U AMIC ####[facility] Zbwjbtenjv2202 [place] [address]Dr. Ricardo Rocha Ketones Ql (U) Negative Normal NEGATIVE [facility] Comment on above: Performed By: #### U AMIC ####[facility] Mjpmysmezb[address] [place], [place] [address]Dr. Ricardo Rocha LEUKOCYTES Negative Normal NEGATIVE [facility] Comment on above: Performed By: #### U AMIC ####[facility] Hbkxubdkwx2168 [place] [address]Dr. Ricardo Rocha MUCOUS NONE SEEN Normal NONE SEEN [facility] Comment on above: Performed By: #### U AMIC ####[facility] Fbfgwnatpp3166 [place] [address]Dr. Ricardo Rocha Nitrite Ql (U) Negative Normal NEGATIVE [facility] Comment on above: Performed By: #### U AMIC ####[facility] Ddgbgwpquh5319 [place] [address]Dr. Ricardo Rocha pH (U) 5.5 [pH] Normal 5-9 [facility] Comment on above: Performed By: #### U AMIC ####[facility] Avobsrimfx6798 [place] [address]Dr. Ricardo Rocha RBC NONE SEEN Abnormal 0-2 [facility] Comment on above: Performed By: #### U AMIC ####[facility] Flwkykxyex7332 [place] [address]Dr. Ricardo Rocha SPEC GRAVITY 1.020 Normal 1.005-<=1.02 5 [facility] Comment on above: Performed By: #### U AMIC ####[facility] Atxvpwjnnt7047 [place] [address]Dr. Ricardo Rocha UA PROTEIN Negative Normal NEGATIVE/ TRACE [facility] Comment on above: Performed By: #### U AMIC ####[facility] Fjniofytcd1400 [place] [address]Dr. Ricardo Rocha Urobilinogen Qn (U) 0.2 {Madeleine'U}/dL Normal 0.2 - 1. 0 [facility] Comment on above: Performed By: #### U AMIC ####[facility] Zknfwshdud99[address] [place], [place] [address]Dr. Ricardo Rocha WBC NONE SEEN Normal NONE SEEN [facility] Comment on above: Performed By: #### U AMIC ####[facility] Gddhrjccjn[address] [place], [place] [address]Dr. Ricardo Rocha CBC W MANUAL DIFFon 06-16-20 22 ATYPICAL LYMPH # Normal [facility] Comment on above: Performed By: #### C BCMAN ####[facility] Dixoaiidvc[address] [place], [place] [address]Dr. Ricardo Rocha ATYPICAL LYMPH % Normal [facility] Comment on above: Performed By: #### C BCRED ####[facility] Nvclpmyzcu20[address] [place], [place] [address]Dr. Ricardo Rocha BAND # 0.2 103/ul Normal 0.0-0.3 [facility] Comment on above: Performed By: #### C BCMAN ####[facility] Sxqtkgiayb9[address] [place], [place] [address]Dr. Ricardo Rocha BAND % 2 % Normal 0-5 [facility] Comment on above: Performed By: #### C BCMAN ####[facility] Hiqgzpgvdm119[address] [place], [place] [address]Dr. Ricardo Rocha BASOM # 0.00 103/ul Normal 0.00-0.10 [facility] Comment on above: Performed By: #### C BCMAN ####[facility] Ewpceosuyp8104 [place] [phone]. Ricardo Rocha BASOM % 0.0 % Critically low 0.2-2.0 [facility] Comment on above: Performed By: #### C BCMAN ####[facility] Uwbrepdtgd9712 [place] [phone]. Ricardo Rocha BLAST # Normal [facility] [place] [facility] Comment on above: Performed By: #### C BCMAN ####[facility] Cykyuajrmw2283 [place] [phone]. Ricardo Rocha BLAST % Normal [facility] [place] [facility] Comment on above: Performed By: #### C BCRED ####[facility] Pipwscbjub0848 [place] [address]Dr. Ricardo Rocha CORRECTED WBC Normal 4.0-11.0 [facility] Comment on above: Performed By: #### C BCRED ####[facility] Cnuhnxemhr[address] [place], [place] [address]Dr. Ricardo Rocha EOS # 0.11 103/ul Normal 0.00-0.70 [facility] [place] [facility] Comment on above: Performed By: #### C BCRED ####[facility] Sdywnvtilq72[address] [place], [place] [address]Dr. Ricardo Rocha EOS% 1.0 % Normal 0.9-7.0 [facility] [place] [facility] Comment on above: Performed By: #### C BCRED ####[facility] Cghjhuqxpo[address] [place], [place] [address]Dr. Ricardo Rocha HCT 24.2 % Critically low 36.0-48.0 [facility] Comment on above: Performed By: #### C BCRED ####[facility] Miapbobsof[address] [place], [place] [address]Dr. Ricadro Rocha HGB 7.9 g/dl Critically low 12.0-16.0 [facility] Comment on above: Performed By: #### C BCRED ####[facility] Tjaswfaijc[address] [place], [place] [address]Dr. Ricardo Rocha LYMPHM # 1.81 103/ul Normal 1.20-3.80 [facility] Comment on above: Performed By: #### C DWAINE ####[facility] Bpzrdjqzna3902 [place] [phone]. Ricardo Rocha LYMPHM% 16.0 % Critically low 20.5-60.0 [facility] Comment on above: Performed By: #### C DWAINE ####[facility] Wrdigfcvmz6470 [place] [phone]. Ricardo Rocha MCH 25.2 pg Critically low 26.7-34.0 [facility] Comment on above: Performed By: #### C DWAINE ####[facility] Tmxzgsrfqo6586 [place] [phone]. Ricardo Rocha MCHC 32.6 g/dl Normal 29.9-35.2 [facility] Comment on above: Performed By: #### C DWAINE ####[facility] Hyqetrohrp5348 [place] [phone]. Ricardo Rocha MCV 77.3 fL Critically low 81.0-99.0 [facility] Comment on above: Performed By: #### C DWAINE ####[facility] Fuuktsfmme1803 [place] [phone]. Ricardo Rocha METAMYELOCYTE # 0.5 103/ul Normal [facility] Comment on above: Performed By: #### C DWAINE ####[facility] Eaxwkdsbsg9204 [place] [phone]. Ricardo Rocha METAMYELOCYTE % 4 % Normal [facility] Comment on above: Performed By: #### C DWAINE ####[facility] Osxqzoapva5185 [place] [phone]. Ricardo Rocha MONOM# 0.45 103/ul Normal 0.30-0.80 [facility] Comment on above: Performed By: #### C DWAINE ####[facility] Xmxhycpbug4547 [place] [phone]. Ricardo Rocha MONOM% 4.0 % Normal 1.7-12.0 [facility] Comment on above: Performed By: #### Esteban ISIDRO ####[facility] Ttsvohuoro9105 [place] [phone]. Ricardo Rocha MPV 10.4 fL Normal 9.5-13.5 [facility] Comment on above: Performed By: #### C DWAINE ####[facility] Dvtdgloxjo3989 [place] [phone]. Ricardo Rocha MYELOCYTE # 0.5 103/ul Normal [facility] Comment on above: Performed By: #### C DWAINE ####[facility] Asnigmcsbf8714 [place] [phone]. Ricardo Rocha MYELOCYTE % 4 % Normal [facility] Comment on above: Performed By: #### C DWAINE ####[facility] Hkmhuffkvs8801 [place] [address]Dr. Ricardo Rocha NRBC Normal [facility] Comment on above: Performed By: #### C DWAINE ####[facility] Ncaqiwetjc4892 [place] [phone]. Ricardo Rocha PLT 325 103/ul Normal 150-450 [facility] Comment on above: Performed By: #### C DWAINE ####[facility] Pjbflzqphm7806 [place] [phone]. Ricardo Rocha RBC 3.13 106/ul Critically low 4.20-5.[address] [facility] Comment on above: Performed By: #### C DWAINE ####[facility] Ixxkqyhqkh6182 [place] [phone]. Ricardo Rocha RDW 13.7 % Normal 11.0-15.0 [facility] Comment on above: Performed By: #### C DWAINE ####[facility] Fguemnqbme4341 [place] [phone]. Ricardo Rocha SEG # 7.80 103/ul Critically high 1.40-6.50 [facility] Comment on above: Performed By: #### C DWAINE ####[facility] Kfjcnjczus9102 [place] [phone]. Ricardo Rocha SEG % 69.0 % Normal 43.0-75.0 [facility] Comment on above: Performed By: #### C BCMAN ####[facility] Qsnieljkhm5235 [place] [phone]. Ricardo Rocha WBC 11.3 103/ul Critically high 4.0-11.0 [facility] Comment on above: Performed By: #### C BCMAN ####[facility] Wnfnucwsac9243 [place] [address]Dr. Ricardo Rocha PROF 14(COMP METB)on 022 Albumin [Mass/Vol] 1.7 g/dL Critically low 3.4-5.0 [facility] Comment on above: Performed By: #### C MP ####[facility] [facility] Gnrzcdvzbi[address] [place] [address]Dr. Ricardo Rocha Albumin/Globulin [Mass ratio] 0.4 {ratio} Normal [facility] Comment on above: Performed By: #### C MP ####[facility] Yobmbufvuf[address] [place] [address]Dr. Ricardo Rocha ALP [Catalytic activity/Vol] 174 U/L Critically high 46-116 [facility] Comment on above: Performed By: #### C MP ####[facility] Ndknhbfqou29[address] [place] [address]Dr. Ricardo Rocha ALT [Catalytic activity/Vol] 14 U/L Normal 14-59 [facility] Comment on above: Performed By: #### C MP ####[facility] Sihoxkydlh63[address] [place] [address]Dr. Ricardo Rocha Anion gap [Moles/Vol] 10.8 mmol/L Normal [facility] Comment on above: Performed By: #### C MP ####[facility] Dewuhcrzac44[address] [place] [address]Dr. Ricardo Rocha AST [Catalytic activity/Vol] 13 U/L Critically low 15-37 [facility] Comment on above: Performed By: #### C MP ####[facility] Emnldnhrqv4[address] [place] [address]Dr. Ricardo Rocha Bilirubin [Mass/Vol] 0.3 mg/dL Normal 0.2-1.0 [facility] Comment on above: Performed By: #### C MP ####[facility] Svygwcmpez07[address] [place] [id number]. Ricardo Rocha Calcium [Mass/Vol] 8.2 mg/dL Critically low 8.5-10.1 [facility] Comment on above: Performed By: #### C MP ####[facility] Axyarpjibn0503 [place] [phone]. Ricardo Rocha Chloride [Moles/Vol] 104 mmol/L Normal 98-107 [facility] Comment on above: Performed By: #### C MP ####[facility] Ehjasvpdhl7442 [place] [phone]. Ricardo Rocha CO2 [Moles/Vol] 22.4 mmol/L Normal 21.0-32.0 [facility] Comment on above: Performed By: #### C MP ####[facility] Iqvgjxkp[address] [place], [place] [address]Dr. Ricardo Rocha Creatinine [Mass/Vol] 1.29 mg/dL Critically high 0.55-1.02 [facility] Comment on above: Performed By: #### C MP ####[facility] Fjobfzsddb1141 [place] [phone]. Ricardo Rocha EGFR-AF ROMANIAN 50 mL/min/1.73m2 Critically low >=60 [facility] Comment on above: Performed By: #### C MP ####[facility] Gxlkwwzj[address] [place], [place] [id number]. Ricardo Aj EGFR-NON AF ROMANIAN 42 mL/min/1.73m2 Critically low >=60 [facility] Comment on above: Performed By: #### C MP ####[facility] Gztebfgjjb9076 [place] [phone]. Ricardo Rocha Globulin (S) [Mass/Vol] 4.8 g/dL Normal [facility] Comment on above: Performed By: #### C MP ####[facility] Asnhvpfbhj4197 [place] [phone]. Ricardo jA Glucose [Mass/Vol] 262 mg/dL Critically high 74-106 T [facility] Comment on above: Performed By: #### C MP ####[facility] Lgfiojpjuo80[address] [place] [address]Dr. Ricardo Rocha Potassium [Moles/Vol] 3.2 mmol/L Critically low 3.5-5.1 [facility] Comment on above: Performed By: #### C MP ####[facility] Pdzxmyhgcr[address] [place], [place] [address]Dr. Nanomarcial Rocha Protein [Mass/Vol] 6.5 g/dL Normal 6.4-8.2 [facility] Comment on above: Performed By: #### C MP ####[facility] Zfgdoigaql68[address] [place], [place] [address]Dr. Nanomarcial Rocha Sodium [Moles/Vol] 134 mmol/L Critically low 136-145 [facility] Comment on above: Performed By: #### C MP ####[facility] Ngohnhlvqv338[address] [place], [place] [address]Dr. Ricardo Rocha Urea nitrogen [Mass/Vol] 20.0 mg/dL Critically high 7.0-18.0 [facility] Comment on above: Performed By: #### C MP ####[facility] Akewnkfnfs24[address] [place], [place] [address]Dr. Nanomarcial Rocha Urea nitrogen/Creatinine [Mass ratio] 15.5 mg/mg Normal [facility] Comment on above: Performed By: #### C MP ####[facility] Ycenlxbmji[address] [place], [place] [address]Dr. Ricardo Rocha CBC AUTO DIFFon 06-15-2022 BASO # 0.1 103/ul Normal 0.0-0.1 [facility] Comment on above: Performed By: #### C BC ####[facility] Uovdiqmamo[address] [place], [place] [address]Dr. Ricardo Rocha Basophils/100 WBC (Bld) 0.7 % Normal 0.2-2.0 [facility] Comment on above: Performed By: #### C BC ####[facility] Toywvqrqdb7464[address] [place], [place] [address]Dr. Ricardo Rocha EO # 0.1 103/ul Normal 0.0-0.7 [facility] Comment on above: Performed By: #### C BC ####[facility] Nlvnluhqua[address] [place] [id number]. Ricardo Rocha Eosinophils/100 WBC (Bld) 0.7 % Critically low 0.9-7.0 [facility] Comment on above: Performed By: #### C BC ####[facility] Kpzlacxlpw0474 [place] [phone]. Ricardo Rocha Erythrocyte distribution width (RBC) [Ratio] 13.7 % Normal 11.0-15.0 [facility] Comment on above: Performed By: #### C BC ####[facility] Gsppmttnfd2141 [place] [address]Dr. Ricardo Rocha Hematocrit (Bld) [Volume fraction] 26.7 % Critically low 36.0-48.0 [facility] Comment on above: Performed By: #### C BC ####[facility] Hsjjyxquca[address] [place], [place] [address]Dr. Ricardo Rocha Hemoglobin (Bld) [Mass/Vol] 8.4 g/dL Critically low 12.0-16.0 [facility] Comment on above: Performed By: #### C BC ####[facility] Oaqxbbvula[address] [place], [place] [address]Dr. Ricardo Rocha IG # 0.83 10e3/ul Critically high 0.00-0.03 [facility] Comment on above: Performed By: #### C BC ####[facility] Xwletdavgw2467 [place] [address]Dr. Ricardo Rocha IG % 6.2 % Critically high 0.0-0.[address] [facility] Comment on above: Performed By: #### C BC ####[facility] Bbacszoqmq423[address] [place], [place] [address]Dr. Ricardo Rocha LYMPH # 1.3 103/ul Normal 1.2-3.8 [facility] Comment on above: Performed By: #### C BC ####[facility] Xqqvbbbvkq0903 [place] [phone]. Ricardo Rocha Lymphocytes/100 WBC (Bld) 9.6 % Critically low 20.5-60.0 [facility] Comment on above: Performed By: #### C BC ####[facility] Btxrdlrtvp11[address] [place] [address]Dr. Ricardo Rocha MANUAL DIFF REQ NO Normal [facility] Comment on above: Performed By: #### C BC ####[facility] Znpiifsylu1572 [place] [phone]. Ricardo Rocha MCH (RBC) [Entitic mass] 25.1 pg Critically low 26.7-34.0 [facility] Comment on above: Performed By: #### C BC ####[facility] Gjtfifsvqh5865 [place] [address]Dr. Ricardo Rocha MCHC (RBC) [Mass/Vol] 31.5 g/dL Normal 29.9-35.2 [facility] Comment on above: Performed By: #### C BC ####[facility] Qrfmqjvjdg74[address] [place], [place] [address]Dr. Ricardo Rocha MCV (RBC) [Entitic vol] 79.7 fL Critically low 81.0-99.0 [facility] Comment on above: Performed By: #### C BC ####[facility] Exkevultpw[address] [place], [place] [address]DrIrina Rocha MONO # 1.0 103/ul Critically high 0.3-0.8 [facility] Comment on above: Performed By: #### C BC ####[facility] Ewiesuxgqr8[address] [place], [place] [address]Dr. Ricardo Rocha Monocytes/100 WBC (Bld) 7.3 % Normal 1.7-12.0 [facility] Comment on above: Performed By: #### C BC ####[facility] Qtzhoavdqj[address] [place], [place] [address]DrIrina Rocha NEUT # 10.2 103/ul Critically high 1.4-6.5 [facility] Comment on above: Performed By: #### C BC ####[facility] Fulybddcak[address] [place], [place] [address]DrIrina Rocha Neutrophils/100 WBC (Bld) 75.5 % Critically high 43.0-75.0 [facility] Comment on above: Performed By: #### C BC ####[facility] Mroqbkokvg8151 [place] [phone]. Ricardo Rocha Platelet mean volume (Bld) [Entitic vol] 11.8 fL Normal 9.5-13.5 [facility] Comment on above: Performed By: #### C BC ####[facility] Sdzwkedwor4285 [place] [phone]. Ricardo Rocha PLT 208 103/ul Normal 150-450 [facility] Comment on above: Performed By: #### C BC ####[facility] Chdjlhncyz7133 [place] [phone]. Ricardo Rocha RBC 3.35 106/ul Critically low 4.20-5.40 [facility] Comment on above: Performed By: #### C BC ####[facility] Lqnfqoxwuu7348 [place] [phone]. Ricardo Rocha WBC 13.5 103/ul Critically high 4.0-11.0 [facility] Comment on above: Performed By: #### C BC ####[facility] Eegdcbphkf4523 [place] [phone]. Ricardo Rocha CULTURE BLOODon 06-15-2022 Microscopic examination of blood, culture Culture Observations: NO GROWTH AT 5 DAYS Normal [facility] Comment on above: Performed By: #### B LDCX2 ####[facility] Sojnqujcoa1469 [place] [phone]. Ricardo Rocha Microscopic examination of blood, culture Culture Observations: NO GROWTH AT 5 DAYS Normal [facility] Comment on above: Performed By: #### B LDCX1 ####[facility] Ccwlxyhidm4863 [place] [phone]. Ricardo Rocha [facility]22 SARS-CoV-2 (COVID-19) RNA ADRIEL+probe Ql (Unsp spec) Not detected Normal NOT DETECTED [facility] Comment on above: Result Comment: When [...] for this test is supported by the Supervisor [employer] of [employer] and Human Service's declaration that [...] Performed By: #### C VDTB ####[facility] Mcfwzgxkrf76[address] [place] [address]Dr. Ricardo Rocha POINT OF CARE GLUCOSEon 05-22 Glucose [Mass/Vol] 366 mg/dL Critically high [address] [place] [address] Comment on above: Performed By: #### P OCGLUC ####[facility] Lfpfxnhwhg[address] [place], [place] [address]Dr. Ricardo Rocha Glucose [Mass/Vol] 229 mg/dL Critically high [address] [place] [address] Comment on above: Performed By: #### P OCGLUC ####[facility] Vepcajoydg[address] [place] [address]Dr. Ricardo Rocha Glucose [Mass/Vol] 258 mg/dL Critically high -106 [facility] Comment on above: Performed By: #### P OCGLUC ####[facility] Akccrmcqzp3293 [place] [address]Dr. Ricardo Rocha PROF 14(COMP METB)on 022 Albumin [Mass/Vol] 1.8 g/dL Critically low 3.4-5.0 [facility] Comment on above: Performed By: #### C MP ####[facility] Nvkxbkwllf[address] [place], [place] [address]Dr. Ricardo Rocha Albumin/Globulin [Mass ratio] 0.4 {ratio} Normal [facility] Comment on above: Performed By: #### C MP ####[facility] Xpxbqflhez7545 [place] [address]Dr. Ricardo Rocha ALP [Catalytic activity/Vol] 196 U/L Critically high 46-116 [facility] Comment on above: Performed By: #### C MP ####[facility] Zbvgrckjfe4886 [place] [address]Dr. Ricardo Rocha ALT [Catalytic activity/Vol] 18 U/L Normal 14-59 [facility] Comment on above: Performed By: #### C MP ####[facility] Prmjvqxosd5410 [place] [address]Dr. Ricardo Rocha Anion gap [Moles/Vol] 16.3 mmol/L Normal [facility] Comment on above: Performed By: #### C MP ####[facility] Ehgbbxvszt[address] [place], [place] [address]Dr. Ricardo Rocha AST [Catalytic activity/Vol] 22 U/L Normal 15-37 [facility] Comment on above: Performed By: #### C MP ####[facility] Vcpgeucuhm[address] [place], [place] [address]Dr. Ricardo Rocha Bilirubin [Mass/Vol] 0.4 mg/dL Normal 0.2-1.0 [facility] Comment on above: Performed By: #### C MP ####[facility] Otatmjstes[address] [place], [place] [address]Dr. Ricardo Aj Calcium [Mass/Vol] 8.2 mg/dL Critically low 8.5-10.1 [facility] Comment on above: Performed By: #### C MP ####[facility] Hcijzbphru64[address] [place], [place] [address]Dr. Ricardo Aj Chloride [Moles/Vol] 103 mmol/L Normal 98-107 [facility] Comment on above: Performed By: #### C MP ####[facility] Eyqofjlbqq30[address] [place], [place] [address]Dr. Ricardo Rocha CO2 [Moles/Vol] 19.0 mmol/L Critically low 21.0-32.0 [facility] Comment on above: Performed By: #### C MP ####[facility] Guoegxoqdv0667 [place] [address]Dr. Ricardo Rocha Creatinine [Mass/Vol] 1.32 mg/dL Critically high 0.55-1.02 [facility] Comment on above: Performed By: #### C MP ####[facility] Wvvbhstolk4961 [place] [phone]. Ricardo Rocha EGFR-AF ROMANIAN 49 mL/min/1.73m2 Critically low >=60 [facility] Comment on above: Performed By: #### C MP ####[facility] Duqupfsvgi9491 [place] [address]Dr. Ricardo Aj EGFR-NON AF ROMANIAN 41 mL/min/1.73m2 Critically low >=60 [facility] Comment on above: Performed By: #### C MP ####[facility] Wtfjfkljhq7356 [place] [address]Dr. Ricardo Aj Globulin (S) [Mass/Vol] 5.0 g/dL Normal [facility] Comment on above: Performed By: #### C MP ####[facility] Goriqmpijl8095 [place] [address]Dr. Ricardo Aj Glucose [Mass/Vol] 228 mg/dL Critically high 74-106 [facility] Comment on above: Performed By: #### C MP ####[facility] Fcpensymdz0792 [place] [address]Dr. Ricardo Rocha Potassium [Moles/Vol] 3.3 mmol/L Critically low 3.5-5.1 [facility] Comment on above: Performed By: #### C MP ####[facility] Rwknkdihzj8717 [place] [address]Dr. Ricardo Rocha Protein [Mass/Vol] 6.8 g/dL Normal 6.4-8.2 [facility] Comment on above: Performed By: #### C MP ####[facility] Wtxjtajtdd3098 [place] [address]Dr. Ricardo Rocha Sodium [Moles/Vol] 135 mmol/L Critically low 136-145 [facility] Comment on above: Performed By: #### C MP ####[facility] Ibvjdrexwk10[address] [place], [place] [address]Dr. Ricardo Rocha Urea nitrogen [Mass/Vol] 23.0 mg/dL Critically high 7.0-18.0 [facility] Comment on above: Performed By: #### C MP ####[facility] Kypmivhbie[address] [place], [place] [address]Dr. Ricardo Rocha Urea nitrogen/Creatinine [Mass ratio] 17.4 mg/mg Normal [facility] Comment on above: Performed By: #### C MP ####[facility] Sfdgkfohns4[address] [place], [place] [address]Dr. Ricardo Rocha UA (CLEAN/CATCH) MANAGER ORANGE/MICRO I F IND.on 06-15-2022 Bilirubin Ql (U) Negative Normal NEGATIVE [facility] Comment on above: Performed By: #### U MICRO, UACSIND ####[facility] Nixfokbxmd15[address] [place], [place] [address]Dr. Ricardo Rocha Clarity (U) CLEAR Normal CLEAR [facility] Comment on above: Performed By: #### U MICRO, UACSIND ####[facility] Iwyfmhokhx[address] [place], [place] [address]Dr. Ricardo Rocha Color (U) LT. YELLOW Normal YELLOW [facility] Comment on above: Performed By: #### U MICRO, UACSIND ####[facility] Ceqayotsfw[address] [place], [place] [address]Dr. Ricardo Rocha Glucose Ql (U) 250 mg/dl Abnormal NEGATIVE [facility] Comment on above: Performed By: #### U MICRO, UACSIND ####[facility] Gqqcrfisac[address] [place], [place] [address]Dr. Ricardo Rocha Hemoglobin Ql (U) TRACE-LYSED Abnormal NEGATIVE [facility] Comment on above: Performed By: #### U MICRO, UACSIND ####[facility] Klnzzwzhir93[address] [place], [place] [address]Dr. Ricardo Rocha Ketones Ql (U) 15 mg/dl Abnormal NEGATIVE [facility] Comment on above: Performed By: #### U MICRO, UACSIND ####[facility] Aaoakydfxj9706 [place] [address]Dr. Ricardo Rocha LEUKOCYTES Negative Normal NEGATIVE [facility] Comment on above: Performed By: #### U MICRO, UACSIND ####[facility] Gyycajdrqa6728 [place] [address]Dr. Nanomarcial Rocha Nitrite Ql (U) Negative Normal NEGATIVE [facility] Comment on above: Performed By: #### U MICRO, UACSIND ####[facility] Kihhsqmwkb3115 [place] [address]Dr. Ricardo Rocha pH (U) 6.0 [pH] Normal 5-9 [facility] Comment on above: Performed By: #### U MICRO, UACSIND ####[facility] Aaaqnvumfn9026 [place] [address]Dr. Ricardo Rocha SPEC GRAVITY 1.010 Normal 1.005-<=1.02 5 [facility] Comment on above: Performed By: #### U MICRO, UACSIND ####[facility] Htuzopxwca9901 [place] [address]Dr. Ricardo Rocha UA PROTEIN Negative Normal NEGATIVE/ TRACE [facility] Comment on above: Performed By: #### U MICRO, UACSIND ####[facility] [address]pqyxcouqh[address] [place], [place] [address]Dr. Ricardo Rocha UR MICRO IND INDICATED Normal [facility] Comment on above: Performed By: #### U MICRO, UACSIND ####[facility] Glvyvntjsw8301 [place] [address]Dr. Ricardo Rocha Urobilinogen Qn (U) 0.2 {Madeleine'U}/dL Normal 0.2 - 1. 0 [facility] Comment on above: Performed By: #### U MICRO, UACSIND ####[facility] Qzalhhfjqc[address] [place], [place] [address]Dr. Ricardo Rocha URINE MICROSCOPIC ONLYon BACTERIA NONE SEEN Normal NONE SEEN [facility] Comment on above: Performed By: #### U MICRO, UACSIND ####[facility] Mnnvhtqmxn[address] [place], [place] [id number]. Ricardo Rocha Bacteria identified Cx Nom (U) NOT INDICATED Normal [facility] Comment on above: Performed By: #### U MICRO, UACSIND ####[facility] Lqbnldrlkn0332 [place] [address]Dr. Ricardo Rocha CAST NONE SEEN Normal NONE SEEN [facility] Comment on above: Performed By: #### U MICRO, UACSIND ####[facility] Swzyudzuvd5852 [place] [address]Dr. Ricardo Rocha Crystals LM Nom (Urine sed) NONE SEEN Normal NONE SEEN [facility] Comment on above: Performed By: #### U MICRO, UACSIND ####[facility] Trndhqzcbw[address] [place], [place] [address]Dr. Ricardo Rocha Epithelial cells LM Ql (Urine sed) FEW Abnormal NONE SEEN /RARE [facility] Comment on above: Performed By: #### U MICRO, UACSIND ####[facility] Fevthnfybx[address] [place], [place] [address]Dr. Ricardo Rocha MUCOUS NONE SEEN Normal NONE SEEN [facility] Comment on above: Performed By: #### U MICRO, UACSIND ####[facility] Poodkzmrrc[address] [place], [place] [address]Dr. Ricardo Rocha RBC 2-5 Abnormal 0-2 [facility] Comment on above: Performed By: #### U MICRO, UACSIND ####[facility] Woqxbvmsdg[address] [place], [place] [address]Dr. Ricardo Rocha WBC 2-5 Abnormal NONE SEEN [facility] Comment on above: Performed By: #### U MICRO, UACSIND ####[facility] Klbdjcgfrs24[address] [place], [place] [address]Dr. Ricardo Rocha YEAST PRESENT Abnormal NONE SEEN [facility] Comment on above: Performed By: #### U MICRO, UACSIND ####[facility] Lfpkfagyuz[address] [place], [place] [address]Dr. Ricardo Rocha CBC AUTO DIFFon 06-14-2022 BASO # 0.0 103/ul Normal 0.0-0.1 [facility] Comment on above: Performed By: #### C BC ####[facility] Kszomqdifj6915 [place] [id number]. Ricardo Rocha Basophils/100 WBC (Bld) 0.4 % Normal 0.2-2.0 [facility] Comment on above: Performed By: #### C BC ####[facility] Twauuypkeq1887 [place] [phone]. Ricardo Rocha EO # 0.0 103/ul Normal 0.0-0.7 [facility] Comment on above: Performed By: #### C BC ####[facility] Pnwtygtnzi[address] [place], [place] [address]Dr. Ricardo Rocha Eosinophils/100 WBC (Bld) 0.4 % Critically low 0.9-7.0 [facility] Comment on above: Performed By: #### C BC ####[facility] Tqsrbhgyez[address] [place], [place] [address]Dr. Ricardo Rocha Erythrocyte distribution width (RBC) [Ratio] 13.8 % Normal 11.0-15.0 [facility] Comment on above: Performed By: #### C BC ####[facility] Eqvmtashde88[address] [place], [place] [address]Dr. Ricardo Rocha Hematocrit (Bld) [Volume fraction] 26.2 % Critically low 36.0-48.0 [facility] Comment on above: Performed By: #### C BC ####[facility] Scmpedidwd[address] [place], [place] [address]Dr. Ricardo Rocha Hemoglobin (Bld) [Mass/Vol] 8.3 g/dL Critically low 12.0-16.0 [facility] Comment on above: Performed By: #### C BC ####[facility] Kwcvkoktly[address] [place], [place] [address]Dr. Ricardo Rocha IG # 0.24 10e3/ul Critically high 0.00-0.03 [facility] Comment on above: Performed By: #### C BC ####[facility] Fmcfesfhfh[address] [place], [place] [address]Dr. Ricardo Rocha IG % 2.3 % Critically high 0.0-0.[address] [facility] Comment on above: Performed By: #### C BC ####[facility] Hmjjcbftdt4545 [place] [phone] Rocha LYMPH # 1.1 103/ul Critically low 1.2-3.8 [facility] Comment on above: Performed By: #### C BC ####[facility] Lodpirwcqq3423 [place] [phone]. Ricardo Rocha Lymphocytes/100 WBC (Bld) 10.2 % Critically low 20.5-60.0 [facility] Comment on above: Performed By: #### C BC ####[facility] Lsjfhkenyu1442 [place] [phone]. Ricardo Rocha MANUAL DIFF REQ NO Normal [facility] Comment on above: Performed By: #### C BC ####[facility] Mtaxjnivgo5816 [place] [address]DrIrina Rocha MCH (RBC) [Entitic mass] 25.5 pg Critically low 26.7-34.0 [facility] Comment on above: Performed By: #### C BC ####[facility] Xuhqlyvjvz7641 [place] [phone]. Ricardo Rocha MCHC (RBC) [Mass/Vol] 31.7 g/dL Normal 29.9-35.2 [facility] Comment on above: Performed By: #### C BC ####[facility] Ffcozslphr7216 [place] [phone] Rocha MCV (RBC) [Entitic vol] 80.6 fL Critically low 81.0-99.0 [facility] Comment on above: Performed By: #### C BC ####[facility] Yivdemynlc9578 [place] [phone] Rocha MONO # 0.7 103/ul Normal 0.3-0.8 [facility] Comment on above: Performed By: #### C BC ####[facility] Avpbjrpmnx5720 [place] [phone] Rocha Monocytes/100 WBC (Bld) 6.7 % Normal 1.7-12.0 [facility] Comment on above: Performed By: #### C BC ####[facility] Ldmtfpwsrj3442 [place] [phone]. Ricardo Rocha NEUT # 8.5 103/ul Critically high 1.4-6.5 [facility] Comment on above: Performed By: #### C BC ####[facility] Prwirbytna7448 [place] [id number]. Ricardo Rocha Neutrophils/100 WBC (Bld) 80.0 % Critically high 43.0-75.0 [facility] Comment on above: Performed By: #### C BC ####[facility] Svkziopbpq5990 [place] [address]Dr. Ricardo Rocha Platelet mean volume (Bld) [Entitic vol] 12.1 fL Normal 9.5-13.5 [facility] Comment on above: Performed By: #### C BC ####[facility] Ttvegwbrgn5513 [place] [address]Dr. Ricardo Rocha PLT 173 103/ul Normal 150-450 [facility] Comment on above: Performed By: #### C BC ####[facility] Jbsjamqfvg9446 [place] [id number]. Ricardo Rocha RBC 3.25 106/ul Critically low 4.20-5.40 [facility] Comment on above: Performed By: #### C BC ####[facility] Pbijgrcnyf3835 [place] [id number]. Ricardo Rocha WBC 10.6 103/ul Normal 4.0-11.0 [facility] Comment on above: Performed By: #### C BC ####[facility] Othikzbvfh2584 [place] [phone]. Ricardo Rocha POINT OF CARE GLUCOSEon 05-22 Glucose [Mass/Vol] 237 mg/dL Critically high 74-106 [facility] Comment on above: Performed By: #### P OCGLUC ####[facility] Tdyixtnfkl4966 [place] [phone]. Ricardo Aj Glucose [Mass/Vol] 296 mg/dL Critically high 74-106 [facility] Comment on above: Performed By: #### P OCGLUC ####[facility] Eenghddyon7305 [place] [address]Dr. Ricardo Rocha Glucose [Mass/Vol] 406 mg/dL Critically high 74-106 [facility] Comment on above: Performed By: #### P OCGLUC ####[facility] Fauopbzdcb4959 [place] [address]Dr. Ricardo Rocha Glucose [Mass/Vol] 447 mg/dL Critically high 74-106 [facility] Comment on above: Performed By: #### P OCGLUC ####[facility] Pnisalcdte7320 [place] [address]Dr. Ricardo Rocha Glucose [Mass/Vol] 319 mg/dL Critically high 74-106 [facility] Comment on above: Performed By: #### P OCGLUC ####[facility] Ikqidyzkfi7344 [place] [address]Dr. Ricardo Rocha PROF 14(COMP METB)on 022 Albumin [Mass/Vol] 1.6 g/dL Critically low 3.4-5.0 [facility] Comment on above: Performed By: #### C MP ####[facility] Gqhinccqon[address] [place], [place] [address]Dr. Nanomarcial Aj Albumin/Globulin [Mass ratio] 0.3 {ratio} Normal [facility] Comment on above: Performed By: #### C MP ####[facility] Mfxqxhopgo7456 [place] [address]Dr. Nanomarcial Aj ALP [Catalytic activity/Vol] 201 U/L Critically high 46-116 [facility] Comment on above: Performed By: #### C MP ####[facility] Neefwyyqkf3531 [place] [address]Dr. Ricardo Rocha ALT [Catalytic activity/Vol] 23 U/L Normal 14-59 [facility] Comment on above: Performed By: #### C MP ####[facility] Vcxfnhnwzo7549 [place] [address]Dr. Ricardo Rocha Anion gap [Moles/Vol] 16.0 mmol/L Normal [facility] Comment on above: Performed By: #### C MP ####[facility] Gjfahphekm5826 [place] [address]Dr. Ricardo Rocha AST [Catalytic activity/Vol] 21 U/L Normal 15-37 [facility] Comment on above: Performed By: #### C MP ####[facility] Kdtlcrxbyz6254 [place] [phone]. Ricardo Rocha Bilirubin [Mass/Vol] 0.4 mg/dL Normal 0.2-1.0 [facility] Comment on above: Performed By: #### C MP ####[facility] Zenvnebvby[address] [place], [place] [address]Dr. Ricardo Aj Calcium [Mass/Vol] 7.6 mg/dL Critically low 8.5-10.1 [facility] Comment on above: Performed By: #### C MP ####[facility] Iuvujvoppq8[address] [place], [place] [address]Dr. Ricardo Aj Chloride [Moles/Vol] 105 mmol/L Normal 98-107 [facility] Comment on above: Performed By: #### C MP ####[facility] Cacecidikz[address] [place], [place] [address]Dr. Ricardo Aj CO2 [Moles/Vol] 17.3 mmol/L Critically low 21.0-32.0 [facility] Comment on above: Performed By: #### C MP ####[facility] Bgltyzxreq5974[address] [place], [place] [address]Dr. Ricardo Aj Creatinine [Mass/Vol] 1.54 mg/dL Critically high 0.55-1.02 [facility] Comment on above: Performed By: #### C MP ####[facility] Kxxpfcyrfu3896[address] [place], [place] [address]Dr. Ricardo Rocha EGFR-AF ROMANIAN 41 mL/min/1.73m2 Critically low >=60 [facility] Comment on above: Performed By: #### C MP ####[facility] Niemsmihbs1713[address] [place], [place] [address]Dr. Ricardo Rocha EGFR-NON AF ROMANIAN 34 mL/min/1.73m2 Critically low >=60 [facility] Comment on above: Performed By: #### C MP ####[facility] Wwxhxmjses5713 [place] [address]Dr. Ricardo Rocha Globulin (S) [Mass/Vol] 4.7 g/dL Normal [facility] Comment on above: Performed By: #### C MP ####[facility] Rratarnwlk5311[address] [place], [place] [address]Dr. Ricardo Rocha Glucose [Mass/Vol] 277 mg/dL Critically high 74-106 [facility] Comment on above: Performed By: #### C MP ####[facility] Dzttotgtht0760[address] [place], [place] [address]Dr. Ricardo Aj Potassium [Moles/Vol] 3.3 mmol/L Critically low 3.5-5.1 [facility] Comment on above: Performed By: #### C MP ####[facility] Gozdqshnro4998[address] [place], [place] [address]Dr. Ricardo Rocha Protein [Mass/Vol] 6.3 g/dL Critically low 6.4-8.2 [facility] Comment on above: Performed By: #### C MP ####[facility] Kvnxpvutcj01[address] [place], [place] [address]Dr. Ricardo Rocha Sodium [Moles/Vol] 135 mmol/L Critically low 136-145 [facility] Comment on above: Performed By: #### C MP ####[facility] Yraljmoout8699[address] [place], [place] [address]Dr. Ricardo Rocha Urea nitrogen [Mass/Vol] 29.0 mg/dL Critically high 7.0-18.0 [facility] Comment on above: Performed By: #### C MP ####[facility] Nbyivzyafr4968[address] [place], [place] [address]Dr. Ricardo Aj Urea nitrogen/Creatinine [Mass ratio] 18.8 mg/mg Normal [facility] Comment on above: Performed By: #### C MP ####[facility] Xgowvthmxd4609[address] [place], [place] [address]Dr. Ricardo Aj CBC AUTO DIFFon 06-13-2022 BASO # 0.0 103/ul Normal 0.0-0.1 [facility] Comment on above: Performed By: #### C BC ####[facility] Npfxoswnxi7789 [place] [address]Dr. Ricardo Rocha Basophils/100 WBC (Bld) 0.2 % Normal 0.2-2.0 [facility] Comment on above: Performed By: #### C BC ####[facility] Mgqhpssnmb3189[address] [place], [place] [address]Dr. Ricardo Rocha EO # 0.1 103/ul Normal 0.0-0.7 [facility] Comment on above: Performed By: #### C BC ####[facility] Jvrtcqbose1387[address] [place], [place] [address]Dr. Ricardo Rocha Eosinophils/100 WBC (Bld) 0.6 % Critically low 0.9-7.0 [facility] Comment on above: Performed By: #### C BC ####[facility] Sszyhbawrm[address] [place], [place] [address]Dr. Ricardo Rocha Erythrocyte distribution width (RBC) [Ratio] 14.2 % Normal 11.0-15.0 [facility] Comment on above: Performed By: #### C BC ####[facility] Faqntjufur2594[address] [place], [place] [address]Dr. Ricardo Rocha Hematocrit (Bld) [Volume fraction] 27.9 % Critically low 36.0-48.0 [facility] Comment on above: Performed By: #### C BC ####[facility] Jffwnibxvb640[address] [place], [place] [address]Dr. Ricardo Rocha Hemoglobin (Bld) [Mass/Vol] 8.6 g/dL Critically low 12.0-16.0 [facility] Comment on above: Performed By: #### C BC ####[facility] Jlwozotaxc[address] [place], [place] [address]Dr. Nanomarcial Rocha IG # 0.08 10e3/ul Critically high 0.00-0.03 [facility] Comment on above: Performed By: #### C BC ####[facility] Z[address]peq[address] [place] [address]. Nanomarcial Rocha IG % 0.8 % Critically high 0.0-0.[address] [facility] Comment on above: Performed By: #### C BC ####[facility] Qvjpliucgj5459 [place] [address]Dr. Nanomarcial Aj LYMPH # 0.9 103/ul Critically low 1.2-3.8 [facility] Comment on above: Performed By: #### C BC ####[facility] Hrtpaxilra5741 [place] [address]Dr. Ricardo Aj Lymphocytes/100 WBC (Bld) 8.9 % Critically low 20.5-60.0 [facility] Comment on above: Performed By: #### C BC ####[facility] Frounglxsz1513 [place] [address]Dr. Ricardo Rocha MANUAL DIFF REQ NO Normal [facility] Comment on above: Performed By: #### C BC ####[facility] Nlxemtuumi9596 [place] [address]Dr. Ricardo Aj MCH (RBC) [Entitic mass] 25.1 pg Critically low 26.7-34.0 [facility] Comment on above: Performed By: #### C BC ####[facility] Mqbhnjlkab[address] [place], [place] [address]Dr. Ricardo Rocha MCHC (RBC) [Mass/Vol] 30.8 g/dL Normal 29.9-35.2 [facility] Comment on above: Performed By: #### C BC ####[facility] Xdmhqgmiln8733 [place] [address]Dr. Ricardo Aj MCV (RBC) [Entitic vol] 81.6 fL Normal 81.0-99.0 [facility] Comment on above: Performed By: #### C BC ####[facility] Zenoeljsvn9[address] [place], [place] [address]Dr. Ricardo Rocha MONO # 0.6 103/ul Normal 0.3-0.8 [facility] Comment on above: Performed By: #### C BC ####[facility] Fkdbncccvg648[address] [place], [place] [address]Dr. Ricardo Rocha Monocytes/100 WBC (Bld) 5.7 % Normal 1.7-12.0 [facility] Comment on above: Performed By: #### C BC ####[facility] Qhaegtqofh8012 [place] [address]Dr. Ricardo Rocha NEUT # 8.4 103/ul Critically high 1.4-6.[address] [facility] Comment on above: Performed By: #### C BC ####[facility] Wljneoecoa7346 [place] [address]Dr. Ricardo Rocha Neutrophils/100 WBC (Bld) 83.8 % Critically high 43.0-75.0 [facility] Comment on above: Performed By: #### C BC ####[facility] Tjpkjsnfgl8028 [place] [address]Dr. Ricardo Rocha Platelet mean volume (Bld) [Entitic vol] 12.1 fL Normal 9.5-13.5 [facility] Comment on above: Performed By: #### C BC ####[facility] Ziioqgjfre7647 [place] [address]Dr. Ricardo Rocha PLT 149 103/ul Critically low 150-450 [facility] Comment on above: Performed By: #### C BC ####[facility] Dausktcjwh8957 [place] [address]Dr. Ricardo Rocha RBC 3.42 106/ul Critically low 4.20-5.[address] [facility] Comment on above: Performed By: #### C BC ####[facility] Zoaichclzf1906 [place] [address]Dr. Ricardo Rocha WBC 10.0 103/ul Normal 4.0-11.0 [facility] Comment on above: Performed By: #### C BC ####[facility] Qekidycobf4823 [place] [address]Dr. Ricardo Rocha CULTURE OTHERon 06-13-2022 CULTURE OTHER Normal [facility] Comment on above: Performed By: #### O THCX ####[facility] Utbcnbatli5[address] [place], [place] [address]Dr. Ricardo Rocha CULTURE OTHER Normal [facility] Comment on above: Performed By: #### O THCX ####[facility] Fuicjfwbnq9469 [place] [id number]. Nanomarcial Rocha CULTURE OTHER Normal [facility] Comment on above: Performed By: #### O THCX ####[facility] Fssmtjjinu0253 [place] [phone]. Nanomarcial Rocha GI PANEL (PCR)on 06-13-2022 Adenovirus F 40/41 Not detected Normal NOT DETECTED [facility] Comment on above: Performed By: #### G IPANEL ####[facility] Zkyqhcwtoj[address] [place], [place] [address]Dr. Ricardo Rocha Astrovirus Not detected Normal NOT DETECTED [facility] Comment on above: Performed By: #### G IPANEL ####[facility] Ahywpkrhys7766[address] [place], [place] [address]Dr. Ricardo Rocha C. Diff toxin A/B Not detected Normal NOT DETECTED [facility] Comment on above: Performed By: #### G IPANEL ####[facility] Kcumcxyjag3[address] [place], [place] [address]Dr. Ricardo Rocha Campylobacter Not detected Normal NOT DETECTED [facility] Comment on above: Performed By: #### G IPANEL ####[facility] Jhdtirlojx5[address] [place], [place] [address]Dr. Ricardo Rocha Cryptosporidium Not detected Normal NOT DETECTED [facility] Comment on above: Performed By: #### G IPANEL ####[facility] Ptorocznum1355 [place] [phone]. Ricardo Rocha Cyclos. Cayetanensis Not detected Normal NOT DETECTED [facility] Comment on above: Performed By: #### G IPANEL ####[facility] Goaxkzfkys7847[address] [place], [place] [address]Dr. Ricardo Rocha E. Coli O157 Not Applicable Normal Not Applicable [facility] Comment on above: Performed By: #### G IPANEL ####[facility] Quaburjpwm4566[address] [place], [place] [address]Dr. Ricardo Rocha E. histolytica Not detected Normal NOT DETECTED [facility] Comment on above: Performed By: #### G IPANEL ####[facility] Wzxhsesbmg0238 [place] [address]Dr. Nanomarcial Rocha EAEC Not detected Normal NOT DETECTED [facility] Comment on above: Performed By: #### G IPANEL ####[facility] Tciraokxnj263[address] [place], [place] [address]Dr. Ricardo Rocha EIEC Not detected Normal NOT DETECTED [facility] Comment on above: Performed By: #### G IPANEL ####[facility] Xeudtqadld9605[address] [place], [place] [address]Dr. [facility] EPEC Not detected Normal NOT DETECTED [facility] Comment on above: Performed By: #### G IPANEL ####[facility] Futhkbjzrq2570[address] [place], [place] [address]Dr. Ricardo Rocha ETEC Not detected Normal NOT DETECTED [facility] Comment on above: Performed By: #### G IPANEL ####[facility] Uilhwswfmp9366[address] [place], [place] [address]Dr. Ricardo Rocha G. Lamblia Not detected Normal NOT DETECTED [facility] Comment on above: Performed By: #### G IPANEL ####[facility] Vfjxunlvit9980[address] [place], [place] [address]Dr. Ricardo Rocha GIPANEL CONTROLS PASSED Normal [facility] Comment on above: Performed By: #### G IPANEL ####[facility] Badniabkjt2584[address] [place], [place] [address]Dr. Ricardo CASAS MONIQUE HEADER GI PANEL BACTERIA Normal [facility] Comment on above: Performed By: #### G IPANEL ####[facility] Xbsryhuhso0536[address] [place], [place] [address]Dr. Ricardo MARTINEZHD ECOLI GI PANEL DIARRHEAGEN IC E.COLI / SHIGELLA Normal [facility] Comment on above: Performed By: #### G IPANEL ####[facility] Nsfngvqjfv7756[address] [place], [place] [address]Dr. Ricardo CASASNLHD INFO SEE BELOW Normal [facility] Comment on above: Result Comment: EAEC - Enteroaggregative E. Coli EPEC- Enteropathogenic E. Coli ETEC- Enterotoxigenic E. Coli lt/st STEC- Shigella-like toxin-producing E. Coli stx1/stx2 EIEC- Shigella/Enteroinvasive E. Coli Performed By: #### G IPANEL ####[facility] Hsmzldzcck6639 [place] [address]Dr. Nanomarcial Rocha GIPNLHD PARASITES GI PANEL PARASITES Normal [facility] Comment on above: Performed By: #### G IPANEL ####[facility] Jdofiinyha76[address] [place], [place] [address]Dr. Ricardo Rocha GIPNLHD VIRUS GI PANEL VIRUSES Normal [facility] Comment on above: Performed By: #### G IPANEL ####[facility] Ytwmukyhjk8[address] [place], [place] [address]Dr. Ricardo Rocha Norovirus GI/GII Not detected Normal NOT DETECTED [facility] Comment on above: Performed By: #### G IPANEL ####[facility] Qogsqbbvkd4817[address] [place], [place] [address]Dr. Nanomarcial Rocha P. Shigelloides Not detected Normal NOT DETECTED [facility] Comment on above: Performed By: #### G IPANEL ####[facility] Yzqavyulko199[address] [place], [place] [address]Dr. Ricardo Rocha Rotavirus A Not detected Normal NOT DETECTED [facility] Comment on above: Performed By: #### G IPANEL ####[facility] Whjnnpznbo109[address] [place], [place] [address]Dr. Nanomarcial Rocha Salmonella Not detected Normal NOT DETECTED [facility] Comment on above: Performed By: #### G IPANEL ####[facility] Hugdvswjqz2109[address] [place], [place] [address]Dr. marcial Rocha Sapovirus Not detected Normal NOT DETECTED [facility] Comment on above: Performed By: #### G IPANEL ####[facility] Svvddgqgap706[address] [place], [place] [address]Dr. Ricardo Rocha STEC Not detected Normal NOT DETECTED [facility] Comment on above: Performed By: #### G IPANEL ####[facility] Wwsbalisqx6462 [place] [address]Dr. Ricardo Rocha Vibrio Not detected Normal NOT DETECTED [facility] Comment on above: Performed By: #### G IPANEL ####[facility] Leautktelb5535 [place] [address]Dr. Ricardo Rocha Vibrio Cholera Not detected Normal NOT DETECTED [facility] Comment on above: Performed By: #### G IPANEL ####[facility] Umgendbdws1309[address] [place], [place] [address]Dr. Ricardo Rocha Y. Enterocolitica Not detected Normal NOT DETECTED [facility] Comment on above: Performed By: #### G IPANEL ####[facility] Ewzyjuinhr4611[address] [place], [place] [address]Dr. Ricardo Rocha IRON AND TIBCon 06-13-2022 % SATURATION 19.9 % Normal [facility] Comment on above: Performed By: #### F ETIBC, B12FOL ####[facility] Bawiwyrkqm16[address] [place], [place] [address]Dr. Ricardo Rocha Iron [Mass/Vol] 75.0 ug/dL Normal 50.0-170.[address] [facility] Comment on above: Performed By: #### F ETIBC, B12FOL ####[facility] Hgylvoqkqd[address] [place], [place] [address]Dr. Ricardo Rocha TIBC DIRECT 376.0 ug/dL Normal 250.0-450.0 [facility] Comment on above: Performed By: #### F ETIBC, B12FOL ####[facility] Ulpofmgsaa8[address] [place], [place] [address]Dr. Ricardo Rocha POINT OF CARE GLUCOSEon 05-22 Glucose [Mass/Vol] 238 mg/dL Critically high 74-106 [facility] Comment on above: Performed By: #### P OCGLUC ####[facility] Hhbguedjni06[address] [place], [place] [address]Dr. Ricardo Rocha Glucose [Mass/Vol] 146 mg/dL Critically high 74-106 [facility] Comment on above: Performed By: #### P OCGLUC ####[facility] Hhlaoharpc5217 [place] [id number]. Ricardo Rocha Glucose [Mass/Vol] 143 mg/dL Critically high 74-106 [facility] Comment on above: Performed By: #### P OCGLUC ####[facility] Qlwgrrebos6662 [place] [phone]. Ricardo Rocha Glucose [Mass/Vol] 205 mg/dL Critically high 74-106 [facility] Comment on above: Performed By: #### P OCGLUC ####[facility] Tkasxntkqu5505 [place] [address]Dr. Ricardo Rocha Glucose [Mass/Vol] 227 mg/dL Critically high 74-106 [facility] Comment on above: Performed By: #### P OCGLUC ####[facility] Kbjajmyfqc3888 [place] [address]Dr. Nanomarcial Rocha PROF 14(COMP METB)on 06-13- 022 Albumin [Mass/Vol] 1.5 g/dL Critically low 3.4-5.0 [facility] Comment on above: Performed By: #### C MP ####[facility] Suhpkzrkhl6754 [place] [address]Dr. Ricardo Rocha Albumin/Globulin [Mass ratio] 0.3 {ratio} Normal [facility] Comment on above: Performed By: #### C MP ####[facility] Raaisldiiy0206 [place] [address]Dr. Ricardo Aj ALP [Catalytic activity/Vol] 136 U/L Critically high 46-116 [facility] Comment on above: Performed By: #### C MP ####[facility] Osgzeouwcl8475 [place] [address]Dr. Ricardo Aj ALT [Catalytic activity/Vol] 18 U/L Normal 14-59 [facility] Comment on above: Performed By: #### C MP ####[facility] Oyituftjyq8743 [place] [address]Dr. Ricardo Aj Anion gap [Moles/Vol] 10.2 mmol/L Normal [facility] Comment on above: Performed By: #### C MP ####[facility] Spghgthsxk6752 [place] [phone]. Ricardo Rocha AST [Catalytic activity/Vol] 37 U/L Normal 15-37 [facility] Comment on above: Performed By: #### C MP ####[facility] Zhwwcyywql3740 [place] [phone]. Ricardo Rocha Bilirubin [Mass/Vol] 0.4 mg/dL Normal 0.2-1.0 [facility] Comment on above: Performed By: #### C MP ####[facility] Vvtiorxghj1261 [place] [phone]. Ricardo Rocha Calcium [Mass/Vol] 8.0 mg/dL Critically low 8.5-10.1 Th [facility] Comment on above: Performed By: #### C MP ####[facility] Syvzzrsueh57[address] [place], [place] [address]Dr. Ricardo Rocha Chloride [Moles/Vol] 110 mmol/L Critically high 98-107 [facility] Comment on above: Performed By: #### C MP ####[facility] Tkhjwwaxqu0[address] [place], [place] [address]Dr. Ricardo Rocha CO2 [Moles/Vol] 18.2 mmol/L Critically low 21.0-32.0 [facility] Comment on above: Performed By: #### C MP ####[facility] Mwuvocffoy7396 [place] [phone]. Ricardo Rocha Creatinine [Mass/Vol] 1.76 mg/dL Critically high 0.55-1.02 [facility] Comment on above: Performed By: #### C MP ####[facility] Tcuijghpgs9439 [place] [phone]. Ricardo Rocha EGFR-AF ROMANIAN 35 mL/min/1.73m2 Critically low >=60 [facility] Comment on above: Performed By: #### C MP ####[facility] Ngftyhxvcd[address] [place], [place] [address]Dr. Ricardo Rocha EGFR-NON AF ROMANIAN 29 mL/min/1.73m2 Critically low >=60 [facility] Comment on above: Performed By: #### C MP ####[facility] Elriwtqlwy1156 [place] [phone]. Ricardo Rocha Globulin (S) [Mass/Vol] 4.7 g/dL Normal [facility] Comment on above: Performed By: #### C MP ####[facility] Wrpnikrihe1840 [place] [phone]. Ricardo Rocha Glucose [Mass/Vol] 223 mg/dL Critically high 74-106 T [facility] Comment on above: Performed By: #### C MP ####[facility] Lrdtkpqhqc[address] [place], [place] [id number]. Ricardo Rocha Potassium [Moles/Vol] 3.4 mmol/L Critically low 3.5-5.1 [facility] [place] [facility] Comment on above: Performed By: #### C MP ####[facility] Tkspdxyguu[address] [place], [place] [address]Dr. Ricardo Rocha Protein [Mass/Vol] 6.2 g/dL Critically low 6.4-8.2 Th [facility] Comment on above: Performed By: #### C MP ####[facility] Sigclgdagw[address] [place], [place] [address]Dr. Ricardo Rocha Sodium [Moles/Vol] 135 mmol/L Critically low 136-145 Th [facility] Comment on above: Performed By: #### C MP ####[facility] Pfsqpsluti39[address] [place], [place] [address]Dr. Ricardo Rocha Urea nitrogen [Mass/Vol] 33.0 mg/dL Critically high 7.0-18.0 [facility] [place] [facility] Comment on above: Performed By: #### C MP ####[facility] Ytkpyedgde8144[address] [place], [place] [address]Dr. Ricardo Rocha Urea nitrogen/Creatinine [Mass ratio] 18.8 mg/mg Normal [facility] [place] [facility] Comment on above: Performed By: #### C MP ####[facility] Lyinppfmjg07[address] [place], [place] [address]Dr. Ricardo Aj VANCOMYCIN TROUGHon 10-24-20 22 VANCOMYCIN TROUGH 15.2 ug/ml Normal 5.0-20.0 [facility] Comment on above: Performed By: #### V ANCT ####[facility] Y[address]zyswhwe[address] [place] [address]Dr. Ricardo Rocha VIT B12 AND FOLATEon 022 Cobalamin (Vitamin B12) [Mass/Vol] 874.0 pg/mL Normal 193.0-986.0 [facility] Comment on above: Performed By: #### F ETIBC, B12FOL ####[facility] Djwytdsuki0119 [place] [address]Dr. Ricardo Rocha FOLATE 6.60 ng/mL Critically low 8.60-58.90 [facility] Comment on above: Performed By: #### F ETIBC, B12FOL ####[facility] Xjuzipjbgf16[address] [place], [place] [address]Dr. Ricardo Rocha XR FOOT LT MIN 3 VIEWSon XR FOOT LT MIN 3 VIEWS Normal [facility] CBC W MANUAL DIFFon 06-12-20 ATYPICAL LYMPH # Normal [facility] Comment on above: Performed By: #### C DWAINE ####[facility] Ijtcxkmgxs[address] [place], [place] [address]Dr. Ricardo Rocha ATYPICAL LYMPH % Normal [facility] Comment on above: Performed By: #### C DWAINE ####[facility] Knzfkitwkd3035[address] [place], [place] [address]Dr. Ricardo Rocha BAND # 1.9 103/ul Critically high 0.0-0.[address] [facility] Comment on above: Performed By: #### C BCRED ####[facility] Swmxgdljlu[address] [place] [address]Dr. Ricardo Rocha BAND % 17 % Critically high 0-[address] [facility] Comment on above: Performed By: #### C BCRED ####[facility] Xwbbeusnxb8276[address] [place], [place] [address]Dr. Nanomarcial Aj BASOM # 0.00 103/ul Normal 0.00-0.10 [facility] Comment on above: Performed By: #### C DWAINE ####[facility] Bzeqccptvc7201[address] [place], [place] [address]Dr. Ricardo Rocha BASOM % 0.0 % Critically low 0.2-2.0 [facility] Comment on above: Performed By: #### C BCMAN ####[facility] Utmbrohgce9[address] [place] [id number]. Ricardo Rocha BLAST # Normal [facility] Comment on above: Performed By: #### C BCMAN ####[facility] Kdrxcsnyfa2641 [place] [phone]. Ricardo Rocha BLAST % Normal [facility] Comment on above: Performed By: #### C BCRED ####[facility] Cjurflnktq[address] [place], [place] [id number]. Ricardo Rocha CORRECTED WBC Normal 4.0-11.0 [facility] Comment on above: Performed By: #### C DWAINE ####[facility] Xcpposdtql897[address] [place], [place] [address]Dr. Ricardo Rocha EOS # 0.00 103/ul Normal 0.00-0.70 [facility] [place] [facility] Comment on above: Performed By: #### C DWAINE ####[facility] Dbwogqquua098[address] [place], [place] [address]Dr. Ricardo Rocha EOS% 0.0 % Critically low 0.9-7.0 [facility] Comment on above: Performed By: #### C DWAINE ####[facility] Ktzrgbnnxh8[address] [place], [place] [address]Dr. Ricardo Rocha HCT 28.0 % Critically low 36.0-48.0 [facility] Comment on above: Performed By: #### C BCRED ####[facility] Iubvtacuwj60[address] [place], [place] [address]Dr. Ricardo Rocha HGB 8.6 g/dl Critically low 12.0-16.0 [facility] Comment on above: Performed By: #### C BCRED ####[facility] Amcibpqszn8107 [place] [phone]. Ricardo Rocha HYPOCHROMASIA SLIGHT Normal [facility] Comment on above: Performed By: #### C BCRED ####[facility] Qkkfemngcz7660 [place] [phone]. Ricardo Rocha LYMPHM # 0.77 103/ul Critically low 1.20-3.[address] [facility] Comment on above: Performed By: #### C DWAINE ####[facility] Aqudpfkodj1042 [place] [id number]. Ricardo Rocha LYMPHM% 7.0 % Critically low 20.5-60.0 [facility] Comment on above: Performed By: #### C DWAINE ####[facility] Skxvrksbkb9373 [place] [phone]. Ricardo Rocha MCH 25.1 pg Critically low 26.7-34.0 [facility] Comment on above: Performed By: #### C DWAINE ####[facility] Ecckirvrem04[address] [place], [place] [address]Dr. Ricardo Rocha MCHC 30.7 g/dl Normal 29.9-35.2 [facility] Comment on above: Performed By: #### C DWAINE ####[facility] Krshvchfgd36[address] [place], [place] [address]Dr. Ricardo Rocha MCV 81.9 fL Normal 81.0-99.0 [facility] Comment on above: Performed By: #### C DWAINE ####[facility] Fmfblktcba454[address] [place], [place] [address]Dr. Ricardo Rocha METAMYELOCYTE # Normal [facility] Comment on above: Performed By: #### C DWAINE ####[facility] Zgmtdbhepl11[address] [place], [place] [address]Dr. Ricardo Rocha METAMYELOCYTE % Normal [facility] Comment on above: Performed By: #### C DWAINE ####[facility] Tomopotmdp0088 [place] [phone]. Ricardo Rocha MONOM# 0.11 103/ul Critically low 0.30-0.[address] [facility] Comment on above: Performed By: #### C DWAINE ####[facility] Deazjrukdh3127 [place] [phone]. Ricardo Rocha MONOM% 1.0 % Critically low 1.7-12.0 [facility] Comment on above: Performed By: #### C DWAINE ####[facility] Nasarofjbg1451 [place] [phone]. Ricardo Rocha MPV 12.6 fL Normal 9.5-13.5 [facility] Comment on above: Performed By: #### C DWAINE ####[facility] Akdvseptkv2977 [place] [phone]. Ricardo Rocha MYELOCYTE # Normal [facility] [place] [facility] Comment on above: Performed By: #### C DWAINE ####[facility] Hvtjozgwhq2400 [place] [phone]. Ricardo Rocha MYELOCYTE % Normal [facility] Comment on above: Performed By: #### C DWAINE ####[facility] Fkdtpvhyxx2347 [place] [phone]. Ricardo Rocha NRBC Normal [facility] Comment on above: Performed By: #### C DWAINE ####[facility] Tzvsxxsjqu4737 [place] [address]Dr. Ricardo Rocha PLT 140 103/ul Critically low 150-450 [facility] Comment on above: Performed By: #### C DWAINE ####[facility] Awvcbgdsgz1118 [place] [phone]. Ricardo Rocha RBC 3.42 106/ul Critically low 4.20-5.[address] [facility] Comment on above: Performed By: #### C DWAINE ####[facility] Nnkxsxcalf2734 [place] [phone]. Ricardo Rocha RDW 13.7 % Normal 11.0-15.0 [facility] Comment on above: Performed By: #### C DWAINE ####[facility] Rerpzyjqpw7178 [place] [phone]. Ricardo Rocha SEG # 8.25 103/ul Critically high 1.40-6.50 [facility] Comment on above: Performed By: #### C DWAINE ####[facility] Efmvoyhdyc0626 [place] [phone]. Ricardo Rocha SEG % 75.0 % Normal 43.0-75.0 [facility] [place] [facility] Comment on above: Performed By: #### C BCMAN ####[facility] Ohblfqqfcn5465 [place] [address]Dr. Ricardo Rocha WBC 11.0 103/ul Normal 4.0-11.0 [facility] [place] [facility] Comment on above: Performed By: #### C BCMAN ####[facility] Spsupvkmiy2141 [place] [address]Dr. Ricardo Rocha POINT OF CARE GLUCOSEon 05-22 Glucose [Mass/Vol] 200 mg/dL Critically high 74-106 [facility] Comment on above: Performed By: #### P OCGLUC ####[facility] Lcygyskecr[address] [place], [place] [address]Dr. Ricardo Rocha Glucose [Mass/Vol] 165 mg/dL Critically high 74-106 [facility] Comment on above: Performed By: #### P OCGLUC ####[facility] Eoomakhune027[address] [place], [place] [address]Dr. Ricardo Rocha Glucose [Mass/Vol] 152 mg/dL Critically high 74-106 [facility] Comment on above: Performed By: #### P OCGLUC ####[facility] Hisronarku0710[address] [place], [place] [address]Dr. Ricardo Rocha Glucose [Mass/Vol] 154 mg/dL Critically high 74-106 [facility] Comment on above: Performed By: #### P OCGLUC ####[facility] Imzzpbrsnh70[address] [place] [address]Dr. Ricardo Rocha PROF 14(COMP METB)on 022 Albumin [Mass/Vol] 1.9 g/dL Critically low 3.4-5.0 [facility] Comment on above: Performed By: #### C MP ####[facility] Zphqbfohbz9935 [place] [address]Dr. Ricardo Rocha Albumin/Globulin [Mass ratio] 0.4 {ratio} Normal [facility] [place] [facility] Comment on above: Performed By: #### C MP ####[facility] Uvjcbiutjd6726 [place] [address]Dr. Ricardo Rocha ALP [Catalytic activity/Vol] 68 U/L Normal 46-116 [facility] Comment on above: Performed By: #### C MP ####[facility] Gcccornrey6383 [place] [address]Dr. Ricardo Rocha ALT [Catalytic activity/Vol] 16 U/L Normal 14-59 [facility] [place] [facility] Comment on above: Performed By: #### C MP ####[facility] Ywbaoudcrp13[address] [place], [place] [address]Dr. Ricardo Rocha Anion gap [Moles/Vol] 15.1 mmol/L Normal [facility] [place] [facility] Comment on above: Performed By: #### C MP ####[facility] Qerbhuxoaf[address] [place], [place] [address]Dr. Ricardo Aj AST [Catalytic activity/Vol] 26 U/L Normal 15-37 [facility] [place] [facility] Comment on above: Performed By: #### C MP ####[facility] Kadqxmumtv5560[address] [place], [place] [address]Dr. Ricardo Aj Bilirubin [Mass/Vol] 0.3 mg/dL Normal 0.2-1.0 [facility] [place] [facility] Comment on above: Performed By: #### C MP ####[facility] Xxwtgfcadw1128[address] [place], [place] [address]Dr. Ricardo Aj Calcium [Mass/Vol] 8.0 mg/dL Critically low 8.5-10.1 Th [facility] Comment on above: Performed By: #### C MP ####[facility] Zcacodxtzu3138[address] [place], [place] [address]Dr. Ricardo Aj Chloride [Moles/Vol] 110 mmol/L Critically high 98-107 [facility] Comment on above: Performed By: #### C MP ####[facility] Ztepzjhtwp030[address] [place], [place] [address]Dr. Ricardo Aj CO2 [Moles/Vol] 18.0 mmol/L Critically low 21.0-32.0 [facility] Comment on above: Performed By: #### C MP ####[facility] Snuoipjamf4[address] [place], [place] [address]Dr. Ricardo Aj Creatinine [Mass/Vol] 1.97 mg/dL Critically high 0.55-1.02 [facility] [place] [facility] Comment on above: Performed By: #### C MP ####[facility] Odcrkhnvbu7322 [place] [address]Dr. Ricardo Rocha EGFR-AF ROMANIAN 31 mL/min/1.73m2 Critically low >=60 [facility] [place] [facility] Comment on above: Performed By: #### C MP ####[facility] Hrpsssdqvt8652 [place] [address]Dr. Ricardo Rocha EGFR-NON AF ROMANIAN 26 mL/min/1.73m2 Critically low >=60 [facility] [place] [facility] Comment on above: Performed By: #### C MP ####[facility] Uimuxyxgab6978[address] [place], [place] [address]Dr. Ricardo Rocha Globulin (S) [Mass/Vol] 5.2 g/dL Normal [facility] [place] [facility] Comment on above: Performed By: #### C MP ####[facility] Dvwnoccoju2612[address] [place], [place] [address]Dr. Ricardo Rocha Glucose [Mass/Vol] 146 mg/dL Critically high 74-106 [facility] Comment on above: Performed By: #### C MP ####[facility] Isrhffwxir8748[address] [place], [place] [address]Dr. Ricardo Rocha Potassium [Moles/Vol] 3.1 mmol/L Critically low 3.5-5.1 [facility] [place] [facility] Comment on above: Performed By: #### C MP ####[facility] Dzajnlrjzg65[address] [place], [place] [address]Dr. Ricardo Rocha Protein [Mass/Vol] 7.1 g/dL Normal 6.4-8.2 [facility] Comment on above: Performed By: #### C MP ####[facility] Tedtmbahzr5096[address] [place], [place] [address]Dr. Ricardo Rocha Sodium [Moles/Vol] 140 mmol/L Normal 136-145 [facility] Comment on above: Performed By: #### C MP ####[facility] Qvarmuywpj2316[address] [place], [place] [address]Dr. Ricardo Rocha Urea nitrogen [Mass/Vol] 30.0 mg/dL Critically high 7.0-18.0 [facility] Comment on above: Performed By: #### C MP ####[facility] Dxnftlkalp9327 [place] [address]Dr. Ricardo Rocha Urea nitrogen/Creatinine [Mass ratio] 15.2 mg/mg Normal [facility] Comment on above: Performed By: #### C MP ####[facility] Zipjjrbwpn9894 [place] [address]Dr. Ricardo Rocha CBC W MANUAL DIFFon 06-11-20 22 ATYPICAL LYMPH # Normal [facility] Comment on above: Performed By: #### C BCMAN ####[facility] Vxpawcfoel[address] [place], [place] [address]Dr. Ricardo Rocha ATYPICAL LYMPH % Normal [facility] Comment on above: Performed By: #### C BCMAN ####[facility] Ifscprhxps7714[address] [place], [place] [address]Dr. Ricardo Rocha BAND # 1.1 103/ul Critically high 0.0-0.[address] [facility] Comment on above: Performed By: #### C BCMAN ####[facility] Uabaashqtg668[address] [place], [place] [address]Dr. Ricardo Rocha BAND % 12 % Critically high 0-[address] [facility] Comment on above: Performed By: #### C BCMAN ####[facility] Ynfhtlyicd7[address] [place], [place] [address]Dr. Ricardo Rocha BASOM # 0.00 103/ul Normal 0.00-0.10 [facility] Comment on above: Performed By: #### C BCMAN ####[facility] Mftthdyhhi8302 [place] [address]Dr. Ricardo Rocha BASOM % 0.0 % Critically low 0.2-2.0 [facility] Comment on above: Performed By: #### C BCMAN ####[facility] Pybgxhggca6936 [place] [address]Dr. Ricardo Rocha BLAST # Normal [facility] Comment on above: Performed By: #### C BCMAN ####[facility] Czksupaknm5427 [place] [phone]. Ricardo Rocha BLAST % Normal [facility] Comment on above: Performed By: #### C DWAINE ####[facility] Bhkmiunncy7234 [place] [phone]. Ricardo Rocha CORRECTED WBC Normal 4.0-11.0 [facility] Comment on above: Performed By: #### C DWAINE ####[facility] Qlusjpunaf7520 [place] [phone]. Ricardo Rocha EOS # 0.00 103/ul Normal 0.00-0.70 [facility] Comment on above: Performed By: #### C DWAINE ####[facility] Xzynljyzis2170 [place] [phone]. Ricardo Rocha EOS% 0.0 % Critically low 0.9-7.0 [facility] Comment on above: Performed By: #### C DWAINE ####[facility] Jedgncqmfe5154 [place] [phone]. Ricardo Rocha HCT 32.6 % Critically low 36.0-48.0 [facility] Comment on above: Performed By: #### C DWAINE ####[facility] Baojomhjjf[address] [place], [place] [address]Dr. Ricardo Rocha HGB 10.5 g/dl Critically low 12.0-16.0 [facility] Comment on above: Performed By: #### C DWAINE ####[facility] Iqeshskgff8189 [place] [phone]. Ricardo Rocha LYMPHM # 0.46 103/ul Critically low 1.20-3.[address] [facility] Comment on above: Performed By: #### C DWAINE ####[facility] Jblaydqhaw5831 [place] [phone]. Ricardo Rocha LYMPHM% 5.0 % Critically low 20.5-60.0 [facility] Comment on above: Performed By: #### C DWAINE ####[facility] Ylfsizboxs2862 [place] [phone]. Ricardo Rocha MCH 25.3 pg Critically low 26.7-34.0 [facility] Comment on above: Performed By: #### C DWAINE ####[facility] Yppvlomueg2749 [place] [address]Dr. Ricardo Rocha MCHC 32.2 g/dl Normal 29.9-35.2 [facility] Comment on above: Performed By: #### C DWAINE ####[facility] Jehijwdwvk0927 [place] [phone]. Ricardo Rocha MCV 78.6 fL Critically low 81.0-99.0 [facility] Comment on above: Performed By: #### C DWAINE ####[facility] Uhiphnijol2846 [place] [address]Dr. Ricardo Rocha METAMYELOCYTE # Normal [facility] Comment on above: Performed By: #### C DWAINE ####[facility] Zhuehfqfld[address] [place], [place] [address]Dr. Ricardo Rocha METAMYELOCYTE % Normal [facility] Comment on above: Performed By: #### C DWAINE ####[facility] Ofupzusqul6137 [place] [phone]. Ricardo Rocha MONOM# 0.28 103/ul Critically low 0.30-0.80 [facility] Comment on above: Performed By: #### C DWAINE ####[facility] Uikqiykvyj8377 [place] [address]Dr. Ricardo Rocha MONOM% 3.0 % Normal 1.7-12.0 [facility] Comment on above: Performed By: #### C DWAINE ####[facility] Cluhnjvpwf6170 [place] [phone]. Ricardo Rocha MPV 11.4 fL Normal 9.5-13.5 [facility] Comment on above: Performed By: #### C DWAINE ####[facility] Oxxacabijb4237 [place] [address]Dr. Ricardo Rocha MYELOCYTE # Normal [facility] Comment on above: Performed By: #### C DWAINE ####[facility] Ivrnbwuvtt[address] [place], [place] [address]Dr. Ricardo Rocha MYELOCYTE % Normal [facility] Comment on above: Performed By: #### C DWAINE ####[facility] Hzdbldxrkq3029 [place], [place] [address]Ef. Ricardo Rocha NRBC Normal [facility] Comment on above: Performed By: #### C DWAINE ####[facility] Mfdrtsrhjq7899 [place], [place] [address]Ii. Ricardo Rocha PLT 154 103/ul Normal 150-450 [facility] Comment on above: Performed By: #### C DWAINE ####[facility] Xdaxqzhxvu0110 [place], [place] [address]Lj. Ricardo Rocha RBC 4.15 106/ul Critically low 4.20-5.[address] [facility] Comment on above: Performed By: #### C DWAINE ####[facility] Itdenofemv9794 [place] [phone]. Ricardo Rocha RDW 12.8 % Normal 11.0-15.0 [facility] Comment on above: Performed By: #### C DWAINE ####[facility] Uzzxakebtv8960 [place] [phone]. Ricardo Rocha SEG # 7.36 103/ul Critically high 1.40-6.50 [facility] Comment on above: Performed By: #### C DWAINE ####[facility] Ouyhdsxwgi3112 [place] [phone]. Ricardo Rocha SEG % 80.0 % Critically high 43.0-75.[address] [facility] Comment on above: Performed By: #### C DWAINE ####[facility] Xnpxaghunf7417 [place] [phone]. Ricardo Rocha WBC 9.2 103/ul Normal 4.0-11.0 [facility] Comment on above: Performed By: #### C DWAINE ####[facility] Ajhaptoulj3643 [place] [phone]. Ricardo Rocha CT HEAD WO CONon 06-11-2022 CT HEAD WO CON Normal [facility] CULTURE ANAEROBICon 10-22-20 22 CULTURE ANAEROBIC Culture Observations : NO GROWTH OF ANAEROBES AT 72 HOURS. Normal [facility] Comment on above: Performed By: #### A NACX ####[facility] Xinprtimcq268[address] [place], [place] [address]Dr. Ricardo Rocha CULTURE ANAEROBIC Culture Observations : NO GROWTH OF ANAEROBES AT 72 HOURS. Normal [facility] Comment on above: Performed By: #### A NACX ####[facility] Jpyqbebnyp15[address] [place], [place] [address]Dr. Ricardo Rocha CULTURE BLOODon 06-11-2022 Microscopic examination of blood, culture Culture Observations: Aerobic bottle positive only. Culture Observations: No growth at 5 days in anaerobic bottle Culture Observations: See for Susceptibility testing. Isolate 1 Staphylococcus aureus Growth of Normal [facility] Comment on above: Performed By: #### B LDCX2 ####[facility] Eyurdhynmx123[address] [place], [place] [address]Dr. Ricardo Rocha CULTURE URINEon 06-11-2022 CULTURE URINE Culture Observations : LIGHT GROWTH OF MIXED GENITAL SHAHLA. NO POTENTIAL PATHOGENS SEEN. Normal [facility] [place] [facility] Comment on above: Performed By: #### U RCX ####[facility] Olmjnfiicp6127[address] [place], [place] [address]Dr. Ricardo Rocha Covid-19 PCR (CVDTB)on 05-22 SARS-CoV-2 (COVID-19) RNA ADRIEL+probe Ql (Unsp spec) Not detected Normal NOT DETECTED [facility] Comment on above: Result Comment: When [...] for this test is supported by the [employer]'s declaration that [...] be used). Performed By: #### C NEGRITO ####[facility] Wodftztwtg205[address] [place], [place] [address]Dr. Ricardo Rocha ER URINE PROFILEon 2 Bilirubin Ql (U) Negative Normal NEGATIVE [facility] Comment on above: Performed By: #### SHAYNA ELENA ####[facility] Cqipqeuaan[address] [place], [place] [address]Dr. Ricardo Rocha Clarity (U) CLEAR Normal CLEAR [facility] Comment on above: Performed By: #### SHAYNA ELENA ####[facility] Rndkwrursg86[address] [place], [place] [address]Dr. Ricardo Rocha Color (U) LT. YELLOW Normal YELLOW [facility] Comment on above: Performed By: #### SHAYNA ELENA ####[facility] Irqmokzutx35[address] [place], [place] [address]Dr. Ricardo CHAMPAGNEAHD A micrscopic examination will be performed if indicated. Normal [facility] Comment on above: Performed By: #### SHAYNA ELENA ####[facility] Rvoyddscea[address] [place], [place] [address]Dr. Ricardo Rocha Glucose Ql (U) >1000 Abnormal NEGATIVE [facility] Comment on above: Performed By: #### SHAYNA ELENA ####[facility] Myboizvbhd70[address] [place], [place] [address]Dr. Ricardo Rocha Hemoglobin Ql (U) LARGE Abnormal NEGATIVE [facility] Comment on above: Performed By: #### SHAYNA ELENA ####[facility] Vjczorugdx12[address] [place], [place] [address]Dr. Ricardo Rocha Ketones Ql (U) 15 mg/dl Abnormal NEGATIVE [facility] Comment on above: Performed By: #### SHAYNA ELENA ####[facility] [address]wjbnrth[address] [place], [place] [address]Dr. Ricardo Rocha LEUKOCYTES Negative Normal NEGATIVE [facility] Comment on above: Performed By: #### LOLY ELENAICRO ####[facility] Kldpiwflsl29[address] [place] [address]Dr. Ricardo Rocha Nitrite Ql (U) Negative Normal NEGATIVE [facility] Comment on above: Performed By: #### Jennifer HINOJOSA UMICRO ####[facility] Ppfxgjxtiw2677 [place] [address]Dr. Ricardo Rocha pH (U) 6.0 [pH] Normal 5-9 [facility] Comment on above: Performed By: #### LOLY ELENAICRO ####[facility] Ztqxxyhjlx[address] [place], [place] [address]Dr. Ricardo Rocha Protein (U) [Mass/Vol] 100 mg/dL Abnormal NEGATIVE/ TRACE [facility] Comment on above: Performed By: #### LOLY ELENAICRO ####[facility] Zvqsjcufoi[address] [place], [place] [address]Dr. Ricardo Rocha SPEC GRAVITY 1.020 Normal 1.005-<=1.02 5 [facility] Comment on above: Performed By: #### LOLY ELENAICRO ####[facility] Agrvlojcce[address] [place], [place] [address]Dr. Ricardo Rocha UR MICRO IND INDICATED Normal [facility] Comment on above: Performed By: #### LOLY ELENAICRO ####[facility] Ewwkbdbasw3364[address] [place], [place] [address]Dr. Ricardo Rocha Urobilinogen Qn (U) 0.2 {Madeleine'U}/dL Normal 0.2 - 1. 0 [facility] Comment on above: Performed By: #### Jennifer HINOJOSA UMICRO ####[facility] Efafksfujc[address] [place], [place] [address]Dr. Ricardo Rocha GRAM STAINon 06-11-2022 DIPHTHEROIDS Normal [facility] Comment on above: Performed By: #### G STAIN ####[facility] Rdilavbrbh2045[address] [place], [place] [address]Dr. Ricardo Rocha EPITHELIALS Normal [facility] Comment on above: Performed By: #### G STAIN ####[facility] Djnmdykxzy[address] [place] [address]Dr. Ricardo Rocha FUNGAL ELEMENTS Normal [facility] Comment on above: Performed By: #### G STAIN ####[facility] Gsfrcxutmm1616 [place] [address]Dr. Ricardo Rocha GRAM NEG BACILLI Normal [facility] Comment on above: Performed By: #### G STAIN ####[facility] Stywmuwecw1689 [place] [address]Dr. Ricardo Rocha GRAM NEG DIPPLOCOCCI Normal [facility] Comment on above: Performed By: #### G STAIN ####[facility] Umxdrczwpx97[address] [place], [place] [address]Dr. Ricardo Rocha GRAM POS BACILLI Normal [facility] Comment on above: Performed By: #### G STAIN ####[facility] Qnuqvhbpcr[address] [place], [place] [address]Dr. Ricardo Rocha GRAM POSITIVE COCCI MANY Normal The [facility] Comment on above: Performed By: #### G STAIN ####[facility] Wlqlmugltp76[address] [place], [place] [address]Dr. Ricardo Rocha GRAM STAIN SOURCE Left great toe tissu e after washout-clean Normal [facility] Comment on above: Performed By: #### G STAIN ####[facility] Kyikocaufh17[address] [place], [place] [address]Dr. Ricardo Rocha GS_DIPTH Normal [facility] Comment on above: Performed By: #### G STAIN ####[facility] Invtctblor6458 [place] [address]Dr. Ricardo Rocha WBC RARE Normal [facility] Comment on above: Performed By: #### G STAIN ####[facility] Gfirbyzzyd4[address] [place], [place] [address]Dr. Ricardo Rocha DIPHTHEROIDS Normal [facility] Comment on above: Performed By: #### G STAIN ####[facility] Blcejbrgro7441 [place] [address]Dr. Ricardo Rocha EPITHELIALS Normal [facility] Comment on above: Performed By: #### G STAIN ####[facility] Aafeakxymq9977 [place] [id number]. Ricardo Rocha FUNGAL ELEMENTS Normal [facility] Comment on above: Performed By: #### G STAIN ####[facility] Beewfbkzhc7321 [place] [id number]. Ricardo Rocha GRAM NEG BACILLI Normal [facility] Comment on above: Performed By: #### G STAIN ####[facility] Pxzssmyzbp3699 [place] [id number]. Ricardo Rocha GRAM NEG DIPPLOCOCCI Normal [facility] Comment on above: Performed By: #### G STAIN ####[facility] Dtorktqpso5192 [place] [address]Dr. Ricardo Rocha GRAM POS BACILLI Normal [facility] Comment on above: Performed By: #### G STAIN ####[facility] Xblnkahpdf6857 [place] [address]Dr. Ricardo Rocha GRAM POSITIVE COCCI RARE Normal [facility] Comment on above: Performed By: #### G STAIN ####[facility] Mcgxocthfr0721 [place] [address]Dr. Ricardo Rocha GRAM STAIN SOURCE Left great toe Normal [facility] Comment on above: Performed By: #### G STAIN ####[facility] Ktvgdfzpko2229 [place] [address]Dr. Ricardo Rocha GS_DIPTH Normal [facility] Comment on above: Performed By: #### G STAIN ####[facility] Mrrcbolmhh0332 [place] [address]Dr. Ricardo Rocha WBC RARE Normal [facility] Comment on above: Performed By: #### G STAIN ####[facility] Eknsqdypof1242 [place] [address]Dr. Ricardo Rocha DIPHTHEROIDS Normal [facility] Comment on above: Performed By: #### G STAIN ####[facility] Uyruscienm9817 [place] [address]Dr. Ricardo Rocha EPITHELIALS Normal [facility] Comment on above: Performed By: #### G STAIN ####[facility] Sgfaxtumrd9220 [place] [address]Dr. Ricardo Rocha FUNGAL ELEMENTS Normal [facility] Comment on above: Performed By: #### G STAIN ####[facility] Sasxylazyh[address] [place], [place] [address]Dr. Ricardo Rocha GRAM NEG BACILLI Normal [facility] Comment on above: Performed By: #### G STAIN ####[facility] Qhhmxbiqkr5357[address] [place], [place] [address]Dr. Ricardo Rocha GRAM NEG DIPPLOCOCCI Normal [facility] Comment on above: Performed By: #### G STAIN ####[facility] Laqoeqzwpg4146[address] [place], [place] [address]Dr. Ricardo Rocha GRAM POS BACILLI Normal [facility] Comment on above: Performed By: #### G STAIN ####[facility] Wupwvwykml6715[address] [place], [place] [address]Dr. Ricardo Rocha GRAM POSITIVE COCCI FEW Normal [facility] Comment on above: Performed By: #### G STAIN ####[facility] Gwoxoiloqm026[address] [place], [place] [address]Dr. Ricardo Rocha GRAM STAIN SOURCE Left great toe abscess Normal [facility] Comment on above: Performed By: #### G STAIN ####[facility] Qdxmhsruio7439[address] [place], [place] [address]Dr. Ricardo Rocha GS_DIPTH Normal [facility] Comment on above: Performed By: #### G STAIN ####[facility] Svjpwnhzwp933[address] [place], [place] [address]Dr. Ricardo Rocha WBC FEW Normal [facility] Comment on above: Performed By: #### G STAIN ####[facility] Pepstfhxno7128[address] [place], [place] [address]Dr. Ricardo Rocha LACTATE/LACTIC ACIDon 2021 Lactate [Moles/Vol] 2.2 mmol/L Critically high 0.4-1.9 [facility] Comment on above: Performed By: #### L ACT ####[facility] Hfndqufbqd494[address] [place], [place] [address]Dr. Ricardo Rocha POINT OF CARE GLUCOSEon 10-2 2-2022 Glucose [Mass/Vol] 133 mg/dL Critically high -106 [facility] Comment on above: Performed By: #### P OCGLUC ####[facility] Usdjcetzwt6731 [place] [address]Dr. Ricardo Rocha Glucose [Mass/Vol] 215 mg/dL Critically high -106 [facility] Comment on above: Performed By: #### P OCGLUC ####[facility] Yaiimtvkqi9435 [place] [address]Dr. Ricardo Rocha Glucose [Mass/Vol] 207 mg/dL Critically high -106 [facility] Comment on above: Performed By: #### P OCGLUC ####[facility] Uxhuvioyze5407 [place] [address]Dr. Ricardo Rocha Glucose [Mass/Vol] 314 mg/dL Critically high -106 [facility] Comment on above: Performed By: #### P OCGLUC ####[facility] Yxwkxdeyzi[address] [place], [place] [address]Dr. Ricardo Rocha Glucose [Mass/Vol] 496 mg/dL Critically high [address] [place] [address] Comment on above: Performed By: #### P OCGLUC ####[facility] Lyzxnhjiea6[address] [place], [place] [address]Dr. Ricardo Rocha Glucose [Mass/Vol] 561 mg/dL Critically high -106 [facility] Comment on above: Result Comment: Prev iously Confirmed Performed By: #### P OCGLUC ####[facility] Emjvioonsf377[address] [place], [place] [address]Dr. Ricardo Aj PROF 14(COMP METB)on 022 Albumin [Mass/Vol] 2.4 g/dL Critically low 3.4-5.0 Th [facility] Comment on above: Performed By: #### C MP ####[facility] Srzkiocafy0068 [place] [address]Dr. Nanomarcial Aj Albumin/Globulin [Mass ratio] 0.4 {ratio} [facility] Comment on above: Performed By: #### C MP ####[facility] Zdhcctygcn4076 [place] [address]Dr. Ricardo Rocha ALP [Catalytic activity/Vol] 82 U/L Normal 46-116 [facility] Comment on above: Performed By: #### C MP ####[facility] Pgdmamymda9433 [place] [address]Dr. Ricardo Rocha ALT [Catalytic activity/Vol] 12 U/L Critically low 14-59 [facility] Comment on above: Performed By: #### C MP ####[facility] Aoudednnge[address] [place], [place] [address]Dr. Ricardo Rocha Anion gap [Moles/Vol] 15.1 mmol/L Normal [facility] Comment on above: Performed By: #### C MP ####[facility] Lxrpxmzikm23[address] [place], [place] [address]Dr. Ricardo Rocha AST [Catalytic activity/Vol] 14 U/L Critically low 15-37 [facility] Comment on above: Performed By: #### C MP ####[facility] Lpqdkidghm8[address] [place], [place] [address]Dr. Ricardo Aj Bilirubin [Mass/Vol] 0.4 mg/dL Normal 0.2-1.0 [facility] Comment on above: Performed By: #### C MP ####[facility] Eabyvzlteb49[address] [place], [place] [address]Dr. Ricardo Aj Calcium [Mass/Vol] 8.8 mg/dL Normal 8.5-10.1 [facility] Comment on above: Performed By: #### C MP ####[facility] Lemqkrxnqc[address] [place], [place] [address]Dr. Ricardo Aj Chloride [Moles/Vol] 105 mmol/L Normal 98-107 [facility] Comment on above: Performed By: #### C MP ####[facility] Jvnnvjhhfe12[address] [place], [place] [address]Dr. Nanomarcial Aj CO2 [Moles/Vol] 21.2 mmol/L Normal 21.0-32.0 [facility] Comment on above: Performed By: #### C MP ####[facility] Rnhxopagjt7[address] [place], [place] [address]DrIrina Rocha Creatinine [Mass/Vol] 2.03 mg/dL Critically high 0.55-1.02 [facility] Comment on above: Performed By: #### C MP ####[facility] Jwurecxxft9412 [place] [address]Dr. Nanomarcial Aj EGFR-AF ROMANIAN 30 mL/min/1.73m2 Critically low >=60 [facility] Comment on above: Performed By: #### C MP ####[facility] Ovcmqbaoul0610 [place] [address]Dr. Ricardo Rocha EGFR-NON AF ROMANIAN 25 mL/min/1.73m2 Critically low >=60 [facility] Comment on above: Performed By: #### C MP ####[facility] Xqpnmfnbgy[address] [place], [place] [address]Dr. Ricardo Rocha Globulin (S) [Mass/Vol] 5.7 g/dL Normal [facility] Comment on above: Performed By: #### C MP ####[facility] Fveoqweqie1912 [place] [address]Dr. Ricardo Rocha Glucose [Mass/Vol] 309 mg/dL Critically high 74-106 [facility] Comment on above: Performed By: #### C MP ####[facility] Tytgqopnha3624 [place] [address]DrIrina Rocha Potassium [Moles/Vol] 3.3 mmol/L Critically low 3.5-5.1 [facility] Comment on above: Performed By: #### C MP ####[facility] Cbhmagbvyq9574 [place] [address]Dr. Ricardo Rocha Protein [Mass/Vol] 8.1 g/dL Normal 6.4-8.2 [facility] Comment on above: Performed By: #### C MP ####[facility] Plankrjpcn[address] [place], [place] [address]Dr. Ricardo Rocha Sodium [Moles/Vol] 138 mmol/L Normal 136-145 [facility] Comment on above: Performed By: #### C MP ####[facility] Lplszyfqye[address]64[address] [place], [place] [address]Dr. Ricardo Rocha Urea nitrogen [Mass/Vol] 37.0 mg/dL Critically high 7.0-18.0 [facility] Comment on above: Performed By: #### C MP ####[facility] Lbbskkkjhl1894 [place] [address]Dr. Ricardo Rocha Urea nitrogen/Creatinine [Mass ratio] 18.2 mg/mg Normal [facility] Comment on above: Performed By: #### C MP ####[facility] Vzdlastzuy0811 [place] [address]Dr. Ricardo Rocha SED RATE WESTERGRENon 2021 SED RATE >130 Critically high <=[address] [facility] Comment on above: Performed By: #### S EDR ####[facility] Fjkbqlppmp[address] [place], [place] [address]Dr. Ricardo Rocha URINE MICROSCOPIC ONLYon AMORPHOUS CRYSTALS MODERATE Normal [facility] Comment on above: Performed By: #### Jennifer HINOJOSA UMICRO ####[facility] Xddgyhvpfc6321 [place] [address]Dr. Nanomarcial Aj BACTERIA MODERATE Abnormal NONE SEEN [facility] Comment on above: Performed By: #### LOLY ELENAICRO ####[facility] Uddmoewciv[address] [place], [place] [address]Dr. Nanomarcial Aj Bacteria identified Cx Nom (U) INDICATED Normal [facility] Comment on above: Performed By: #### Jennifer HINOJOSA UMICRO ####[facility] Ydqfrnrhoj9900 [place] [address]Dr. Ricardo Rocha CAST NONE SEEN Normal NONE SEEN [facility] Comment on above: Performed By: #### Jennifer HINOJOSA UMICRO ####[facility] Kqyxqukdds7742 [place] [address]Dr. Ricardo Rocha Crystals LM Nom (Urine sed) SEEN Abnormal NONE SEEN [facility] Comment on above: Performed By: #### Jennifer HINOJOSA UMICRO ####[facility] Npixgjmheo4558 [place] [address]Dr. Ricardo Rocha Epithelial cells LM Ql (Urine sed) NONE SEEN Normal NONE SEEN /RARE [facility] Comment on above: Performed By: #### Jennifer HINOJOSA UMICRO ####[facility] Ibbvpuyzyt[address] [place] [address]Dr. Ricardo Rocha MUCOUS NONE SEEN Normal NONE SEEN [facility] Comment on above: Performed By: #### JOSLYN ELENARO ####[facility] Epggrrxmxf4499 [place] [id number]. Ricardo Rocha RBC 2-5 Abnormal 0-2 [facility] Comment on above: Performed By: #### E JOSLYN HINOJOSARO ####[facility] Olvivkblwx2134 [place] [phone]. Ricardo Rocha WBC 5-10 Abnormal NONE SEEN [facility] Comment on above: Performed By: #### JOSLYN ELENARO ####[facility] Hbmujveeps8541 [place] [address]Dr. Ricardo Rocha XR CHEST 1 Von 06-11-2022 XR CHEST 1 V Normal [facility] XR FOOT LT MIN 3 VIEWSon XR FOOT LT MIN 3 VIEWS Normal [facility] XR FOOT LT MIN 3 VIEWS Normal [facility] ACETONE SERUMon 06-10-2022 ACETONE Negative Normal NEGATIVE [facility] Comment on above: Performed By: #### A CETON ####[facility] Hixrsnoydg4[address] [place], [place] [address]Dr. Ricardo Rocha AMMONIAon 06-10-2022 Ammonia (P) [Mass/Vol] ug/dL Critically low 11-32 [facility] Comment on above: Performed By: #### A MM ####[facility] Vvjbkmogsi[address] [place] [address]Dr. Ricardo Rocha BLOOD CULTURE ID PANELon A. baumannii Not detected Normal NOT DETECTED [facility] Comment on above: Performed By: #### B CID2 ####[facility] Ufeyumrahk4280 [place] [address]Dr. Ricardo Rocha Bacteriodes fragilis Not detected Normal NOT DETECTED [facility] Comment on above: Performed By: #### B CID2 ####[facility] Btahksgblu1043 [place] [phone]. Yimarcial Rocha BCID CONTROLS PASSED Normal [facility] Comment on above: Performed By: #### B CID2 ####[facility] Ginyptdcls6950 [place] [phone]. Yimarcial Rocha BCIDBTHD BLOOD CULTURE BOTTLE INFORMATION [facility] Comment on above: Performed By: #### B CID2 ####[facility] Yeuyehkeix3944 [place] [phone]. Yimarcial Rocha BCIDHD1 ANTIMICROBIAL RESISTANCE GENES [facility] Comment on above: Performed By: #### B CID2 ####[facility] Kncnxhvsiy2221 [place] [address]Dr. Yimarcial Rocha BCIDHD2 SEE BELOW [facility] Comment on above: Result Comment: Note : Antimicrobial resitance can occur via multiple mechanisms. A Not Detected result for the [employer] antomicrobial resistance gene assays does not indicate antimicrobial susceptibility. Subculturing is required for species identification and susceptibility testing of isolates. Performed By: #### B CID2 ####[facility] Wdhonazbhx4544 [place] [phone]. Yimarcial Rocha BCIDHD3 Positive [facility] Comment on above: Performed By: #### B CID2 ####[facility] Klyfuoattn9017 [place] [phone]. Yimarcial Rocha BCIDHD4 Negative [facility] Comment on above: Performed By: #### B CID2 ####[facility] Rjpcsvqbhc1751 [place] [phone]. Yimarcial Rocha BCIDHD5 YEAST Normal [facility] Comment on above: Performed By: #### B CID2 ####[facility] Apidbiyitb9079 [place] [address]Dr. Yilan Rocha Bottle Set: Set 1 [facility] Comment on above: Performed By: #### B CID2 ####[facility] Riotmknmuy6836 [place] [address]Dr. Yilan Rocha Bottle: Aerobic Normal [facility] Comment on above: Performed By: #### B CID2 ####[facility] Uhmmeacxmv7465 [place] [phone]. Yilan Rocha C. neoformans/gattii Not detected Normal NOT DETECTED [facility] Comment on above: Performed By: #### B CID2 ####[facility] Zuritrqega5698 [place] [phone]. Yilan Rocha Lauren albicans Not detected Normal NOT DETECTED [facility] Comment on above: Performed By: #### B CID2 ####[facility] Pztvpvnujb3810 [place] [address]Dr. Yilan Rocha Lauren auris Not detected Normal NOT DETECTED [facility] Comment on above: Performed By: #### B CID2 ####[facility] Obpznaromd[address] [place], [place] [address]Dr. Yilan Rocha Lauren glabrata Not detected Normal NOT DETECTED [facility] Comment on above: Performed By: #### B CID2 ####[facility] Ueibgldxmd[address] [place], [place] [address]Dr. Yilan Rocha Lauren Krusei Not detected Normal NOT DETECTED [facility] Comment on above: Performed By: #### B CID2 ####[facility] Kpdtqedyxt[address] [place], [place] [address]Dr. Yilan Rocha Lauren Parapsilosis Not detected Normal NOT DETECTED [facility] Comment on above: Performed By: #### B CID2 ####[facility] Svgfeyfyqf1585 [place] [address]Dr. Yilan Rocha Lauren Tropicalis Not detected Normal NOT DETECTED [facility] Comment on above: Performed By: #### B CID2 ####[facility] Fphaxmlgxf0812 [place] [phone]. Yimarcial Rocha CTX-M Resistant Gene Not Applicable Normal NOT DETECTE D [facility] Comment on above: Performed By: #### B CID2 ####[facility] Ajenrvgtuw9471 [place] [address]Dr. Yilan Rocha E. Cloacae complex Not detected Normal NOT DETECTED [facility] Comment on above: Performed By: #### B CID2 ####[facility] Dohipzegjo[address] [place], [place] [address]Dr. Ricardo Rocha E. faecalis Not detected Normal NOT DETECTED [facility] Comment on above: Performed By: #### B CID2 ####[facility] Inbpgcjana7204[address] [place], [place] [address]Dr. Ricardo Rocha E. faecium Not detected Normal NOT DETECTED [facility] Comment on above: Performed By: #### B CID2 ####[facility] Foswtutcxv8660[address] [place], [place] [address]Dr. Ricardo Rocha Enterobacteriaceae Not detected Normal NOT DETECTED [facility] Comment on above: Performed By: #### B CID2 ####[facility] Snagttslfm22[address] [place], [place] [address]Dr. Ricardo Rocha Escherichia coli Not detected Normal NOT DETECTED [facility] Comment on above: Performed By: #### B CID2 ####[facility] Iwbguslfnc[address] [place], [place] [address]Dr. Ricardo Rocha H. influenzae Not detected Normal NOT DETECTED [facility] Comment on above: Performed By: #### B CID2 ####[facility] Rxqzyokcvg1620[address] [place], [place] [address]Dr. Ricardo Rocha IMP Resistant Gene Not Applicable Normal NOT DETECTED [facility] Comment on above: Performed By: #### B CID2 ####[facility] Whgqxggtcb5[address] [place], [place] [address]Dr. Ricardo Rocha K. oxytoca Not detected Normal NOT DETECTED [facility] Comment on above: Performed By: #### B CID2 ####[facility] Elwfzilleu7014[address] [place], [place] [address]Dr. Ricardo Rocha K. pneumoniae Not detected Normal NOT DETECTED [facility] Comment on above: Performed By: #### B CID2 ####[facility] Ldkrruylii4[address] [place], [place] [address]Dr. Ricardo Rocha Klebsiella aerogenes Not detected Normal NOT DETECTED [facility] Comment on above: Performed By: #### B CID2 ####[facility] Wbtrxhteuj668[address] [place], [place] [address]Dr. Ricardo Rocha KPC Resistant Gene Not Applicable Normal NOT DETECTED [facility] Comment on above: Performed By: #### B CID2 ####[facility] Avbwepeiyr5915 [place] [address]Dr. Ricardo Rocha List. monocytogenes Not detected Normal NOT DETECTED [facility] Comment on above: Performed By: #### B CID2 ####[facility] Rotsjqcrnx5007 [place] [address]Dr. Ricardo Rocha Mcr-1 Resistant Gene Not Applicable Normal NOT DETECTE D [facility] Comment on above: Performed By: #### B CID2 ####[facility] Uqudjzwtnh[address] [place], [place] [address]Dr. Ricardo Rocha mecA/C Not Applicable Normal NOT DETECTED [facility] Comment on above: Performed By: #### B CID2 ####[facility] Ptnxawqpdv[address] [place], [place] [address]Dr. Ricardo Rocha mecA/C MREJ Detected Abnormal NOT DETECTED [facility] Comment on above: Performed By: #### B CID2 ####[facility] Srbechktlh[address] [place], [place] [address]Dr. Ricardo Rocha N. meningitidis Not detected Normal NOT DETECTED [facility] Comment on above: Performed By: #### B CID2 ####[facility] Rbfvnnspas[address] [place], [place] [address]Dr. Ricardo Rocha NDM Resistant Gene Not Applicable Normal NOT DETECTED [facility] Comment on above: Performed By: #### B CID2 ####[facility] Qmpmpyohvv5[address] [place], [place] [address]Dr. Ricardo Rocha Oxa-48-like Not Applicable Normal NOT DETECTED [facility] Comment on above: Performed By: #### B CID2 ####[facility] Dfxiawdqmz328[address] [place], [place] [address]Dr. Ricardo Rocha Proteus Not detected Normal NOT DETECTED [facility] Comment on above: Performed By: #### B CID2 ####[facility] Hunqehfbxh2759[address] [place], [place] [address]Dr. Ricardo Rocha Pseud. aeruginosa Not detected Normal NOT DETECTED [facility] Comment on above: Performed By: #### B CID2 ####[facility] Njujgzqmzu1843 [place] [address]Dr. Ricardo Rocha S. maltophilia Not detected Normal NOT DETECTED The [facility] Comment on above: Performed By: #### B CID2 ####[facility] Fevtwwprwv8[address] [place], [place] [address]Dr. Ricardo Rocha Salmonella Not detected Normal NOT DETECTED [facility] Comment on above: Performed By: #### B CID2 ####[facility] Yrnebjnzaw15[address] [place], [place] [address]Dr. Ricardo Rocha Seratia marcescens Not detected Normal NOT DETECTED [facility] Comment on above: Performed By: #### B CID2 ####[facility] Qdderxrxet6166[address] [place], [place] [address]Dr. Ricardo Rocha Site: LEFT AC IV START Normal [facility] Comment on above: Performed By: #### B CID2 ####[facility] Jxfqpkpzgy7801[address] [place], [place] [address]Dr. Ricardo Rocha Staph. aureus Detected Critically abnormal NOT DETECTED [facility] [place] [facility] Comment on above: Performed By: #### B CID2 ####[facility] Dpymcwirta3207[address] [place], [place] [address]Dr. Ricardo Rocha Staph. epidermidis Not detected Normal NOT DETECTED [facility] Comment on above: Performed By: #### B CID2 ####[facility] Wtuihqfqdu7604[address] [place], [place] [address]Dr. Ricardo Rocha Staph. lugdunensis Not detected Normal NOT DETECTED [facility] Comment on above: Performed By: #### B CID2 ####[facility] Tagiwtgzmd8617[address] [place], [place] [address]Dr. Ricardo Rocha Staphylococcus Detected Critically abnormal NOT DETECTED [facility] Comment on above: Performed By: #### B CID2 ####[facility] Gzoczwclzy7375[address] [place], [place] [address]Dr. Ricardo Rocha Strep. agalactiae Not detected Normal NOT DETECTED [facility] Comment on above: Performed By: #### B CID2 ####[facility] Notbneelps2510[address] [place], [place] [address]Dr. Nanomarcial Rocha Strep. pneumoniae Not detected Normal NOT DETECTED [facility] Comment on above: Performed By: #### B CID2 ####[facility] Mqlepxaako3404[address] [place], [place] [address]Dr. Nanomarcial Rocha Strep. pyogenes Not detected Normal NOT DETECTED [facility] Comment on above: Performed By: #### B CID2 ####[facility] Oztyftdeyg630475 [address] [place], [place] [address]Dr. Ricardo Rocha Streptococcus Not detected Normal NOT DETECTED [facility] Comment on above: Performed By: #### B CID2 ####[facility] Nsxwfbodxb2985[address] [place], [place] [address]Dr. Ricardo Rocha Layne/B Resist. Gene Not Applicable Normal NOT DETECTED [facility] Comment on above: Performed By: #### B CID2 ####[facility] Xwdofimcqb1350[address] [place], [place] [address]Dr. Ricardo Rocha VIM Resistant Gene Not Applicable Normal NOT DETECTED [facility] Comment on above: Performed By: #### B CID2 ####[facility] Waimiapjdg9126[address] [place], [place] [address]Dr. Ricardo Rocha BLOOD GASES BTYon 06-10-2022 02 MODE ROOM AIR Normal [facility] [place] [facility] Comment on above: Performed By: #### A BG ####[facility] Ljjlzepsep124[address] [place], [place] [address]Dr. Ricardo Rocha ALLENS TEST Positive Normal [facility] Comment on above: Performed By: #### A BG ####[facility] Swoztvizjy63[address] [place], [place] [address]Dr. Ricardo Rocha Base excess Calc (Bld) [Moles/Vol] -4.5000 mmol/L Critically low -2.0-2.0 [facility] [place] [facility] Comment on above: Performed By: #### A BG ####[facility] Wyzmpovwaw6701[address] [place], [place] [address]Dr. Ricardo Rocha BIPAP PRESSURE Normal [facility] Comment on above: Performed By: #### A BG ####[facility] Lyzcncksjz44[address] [place] [address]Dr. Ricardo Rocha CPAP Normal [facility] [place] [facility] Comment on above: Performed By: #### A BG ####[facility] Aazoxnjlkl6842 [place] [address]Dr. Ricardo Rocha FIO2 Normal [facility] Comment on above: Performed By: #### A BG ####[facility] Epbvvysnsi8136 [place] [address]Dr. Ricardo Rocha HCO3 (Bld) [Moles/Vol] 21.4 mmol/L Critically low 22.0-26.0 [facility] Comment on above: Performed By: #### A BG ####[facility] Dgxkqewsjb0747[address] [place], [place] [address]Dr. Ricardo Rocha LPM Normal [facility] Comment on above: Performed By: #### A BG ####[facility] Ouslujfxly644[address] [place], [place] [address]Dr. Ricardo Rocha MINUTE VOLUME Normal [facility] Comment on above: Performed By: #### A BG ####[facility] Klojgjhhow726[address] [place], [place] [address]Dr. Ricardo Rocha Oxygen (Bld) [Partial pressure] 66.4 mm[Hg] Critically low 80.0-100.0 [facility] Comment on above: Performed By: #### A BG ####[facility] Uibolrkogf2465[address] [place], [place] [address]Dr. Ricardo Rocha Oxygen saturation in Blood 94.6 % Critically low 95.0-100.0 [facility] Comment on above: Performed By: #### A BG ####[facility] Dwcwrqaqfk9309[address] [place], [place] [address]Dr. Ricardo Rocha PCO2 29.4 mmHg Critically low 35.0-45.0 [facility] Comment on above: Performed By: #### A BG ####[facility] Tqvhxvuzry1423[address] [place], [place] [address]Dr. Ricardo Rocha PEEP Normal [facility] Comment on above: Performed By: #### A BG ####[facility] Qllmkhiyja3712 [place] [address]Dr. Ricardo Rocha pH (Bld) 7.436 [pH] Normal 7.350-7.450 [facility] [place] [facility] Comment on above: Performed By: #### A BG ####[facility] Groylorzlb[address] [place] [address]Dr. Ricardo Rocha PIP Normal [facility] [place] [facility] Comment on above: Performed By: #### A BG ####[facility] Hdielcjqrm6532 [place] [address]Dr. Ricardo Rocha PS [facility] Comment on above: Performed By: #### A BG ####[facility] Cgwcccvdff20[address] [place], [place] [address]Dr. Ricardo Rocha PUNCTURE SITE LR Normal [facility] Comment on above: Performed By: #### A BG ####[facility] Fkodvdymtg[address] [place], [place] [address]Dr. Ricardo Rocha RATE [place] [facility] Comment on above: Performed By: #### A BG ####[facility] Pezyijcqiy86[address] [place], [place] [address]Dr. Ricardo Rocha VENT MODE [facility] Comment on above: Performed By: #### A BG ####[facility] Ucenglkvka4564[address] [place], [place] [address]Dr. Ricardo Rocha [place] [facility] Comment on above: Performed By: #### A BG ####[facility] Gebuovqafg5[address] [place], [place] [address]Dr. Ricardo Rocha CBC W MANUAL DIFFon 06-10-20 22 ATYPICAL LYMPH # Normal [facility] Comment on above: Performed By: #### C BCMAN ####[facility] Fykxxeunzp5218 [place] [address]Dr. Ricardo Rocha ATYPICAL LYMPH % Normal [facility] Comment on above: Performed By: #### C BCMAN ####[facility] Orjtyuhxgy5526 [place] [address]Dr. Ricardo Rocha BAND # 1.3 103/ul Critically high 0.0-0.3 [facility] Comment on above: Performed By: #### C BCMAN ####[facility] Vhzfovqnkq1423 [place] [id number]. Ricardo Rocha BAND % 12 % Critically high 0-[address] [facility] Comment on above: Performed By: #### C BCMAN ####[facility] D[address]eoowaca1078 [place], [place] [address]Ff. Yimarcial Rocha BASOM # 0.00 103/ul Normal 0.00-0.10 [facility] Comment on above: Performed By: #### C BCMAN ####[facility] Mgzrfcuhbb2718 [place] [id number]. Yimarcial Rocha BASOM % 0.0 % Critically low 0.2-2.0 [facility] Comment on above: Performed By: #### C BCMAN ####[facility] Gxongetyfz1083 [place] [address]Dr. Yimarcial Rocha BLAST # Normal [facility] Comment on above: Performed By: #### C BCRED ####[facility] Nzfddfhwqd9165 [place] [address]Dr. Ricardo Rocha BLAST % Normal [facility] Comment on above: Performed By: #### C BCMAN ####[facility] Mciyxdqdiw8863 [place] [address]Dr. Ricardo Rocha CORRECTED WBC Normal 4.0-11.0 [facility] Comment on above: Performed By: #### C BCMAN ####[facility] Urxieofuud1824 [place] [address]Dr. Yimarcial Rocha EOS # 0.00 103/ul Normal 0.00-0.70 [facility] Comment on above: Performed By: #### C BCMAN ####[facility] Ivbqyovfdz[address] [place], [place] [address]Dr. Yimarcial Rocha EOS% 0.0 % Critically low 0.9-7.0 [facility] Comment on above: Performed By: #### C BCMAN ####[facility] Uasfuupuny3606 [place] [id number]. Yilan Rocha HCT 35.5 % Critically low 36.0-48.0 [facility] Comment on above: Performed By: #### C DWAINE ####[facility] Qkxzzqxqsu3712 [place], [place] [address]Ws. Ricardo Rocha HGB 11.4 g/dl Critically low 12.0-16.0 [facility] Comment on above: Performed By: #### C DWAINE ####[facility] Mbksnyuoxg0339 [place] [id number]. Ricardo Rocha HYPERSEG NEUT 3+ Normal [facility] Comment on above: Performed By: #### C DWAINE ####[facility] Hqtqpevonk2787 [place], [place] [address]Yk. Ricardo Rocha LYMPHM # 0.21 103/ul Critically low 1.20-3.[address] [facility] Comment on above: Performed By: #### C DWAINE ####[facility] Ckomnzsetk2751 [place] [phone]. Ricardo Rocha LYMPHM% 2.0 % Critically low 20.5-60.0 [facility] Comment on above: Performed By: #### C DWAINE ####[facility] Nwdnbdrroe6776 [place] [phone]. Ricardo Rocha MCH 25.3 pg Critically low 26.7-34.0 [facility] Comment on above: Performed By: #### C DWAINE ####[facility] Dgbjzbinqk6272 [place] [phone]. Ricardo Rocha MCHC 32.1 g/dl Normal 29.9-35.2 [facility] Comment on above: Performed By: #### C DWAINE ####[facility] Fvroeviwcl4240 [place], [place] [address]Vl. Ricardo Rocha MCV 78.9 fL Critically low 81.0-99.0 [facility] Comment on above: Performed By: #### C DWAINE ####[facility] Eijigfsfaf4364 [place] [phone]. Ricardo Rocha METAMYELOCYTE # Normal [facility] Comment on above: Performed By: #### C DWAINE ####[facility] Josssaofkg3774 [place] [phone]. Ricardo Rocha METAMYELOCYTE % Normal [facility] Comment on above: Performed By: #### C DWAINE ####[facility] Dlgkvdwgao0038 [place] [phone]. Ricardo Rocha MONOM# 0.32 103/ul Normal 0.30-0.80 [facility] [place] [facility] Comment on above: Performed By: #### C DWAINE ####[facility] Rtefgsxevx8923 [place] [phone]. Ricardo Rocha MONOM% 3.0 % Normal 1.7-12.0 [facility] [place] [facility] Comment on above: Performed By: #### C DWAINE ####[facility] Lsyxivsaze1683 [place] [address]Dr. Ricardo Rocha MPV 10.9 fL Normal 9.5-13.5 [facility] [place] [facility] Comment on above: Performed By: #### C DWAINE ####[facility] Z[address]ayr[address] [place], [place] [address]Dr. Ricardo Rocha MYELOCYTE # Normal [facility] Comment on above: Performed By: #### C DWAINE ####[facility] Brpcbijdyc[address] [place], [place] [address]Dr. Ricardo Rocha MYELOCYTE % Normal [facility] Comment on above: Performed By: #### C DWAINE ####[facility] Sahygofdpp[address] [place], [place] [address]Dr. Ricardo Rocha NRBC Normal [facility] Comment on above: Performed By: #### C DWAINE ####[facility] Lwznzsmofe2364 [place] [phone]. Ricardo Rocha PLT 180 103/ul Normal 150-450 [facility] Comment on above: Performed By: #### C DWAINE ####[facility] Xpjfkgmidy[address] [place], [place] [address]Dr. Ricardo Rocha RBC 4.50 106/ul Normal 4.20-5.40 [facility] Comment on above: Performed By: #### C DWAINE ####[facility] Avzpadcizz8348 [place] [address]Dr. Ricardo Rocha RDW 12.8 % Normal 11.0-15.0 [facility] [place] [facility] Comment on above: Performed By: #### C BCMAN ####[facility] Pnbnrjgjrc4092 [place] [phone]. Ricardo Rocha SEG # 8.71 103/ul Critically high 1.40-6.50 [facility] Comment on above: Performed By: #### C BCMAN ####[facility] Rwdrubtjyl1514 [place] [phone]. Ricardo Rocha SEG % 83.0 % Critically high 43.0-75.0 [facility] [place] Comment on above: Performed By: #### C BCMAN ####[facility] Ngirbhsuts6710[address] [place], [place] [address]Dr. Ricardo Rocha TOXIC GRANULATION 2+ Normal [facility] Comment on above: Performed By: #### C BCMAN ####[facility] Ffhiengvqg2989 [place] [address]Dr. Ricardo Rocha WBC 10.5 103/ul Normal 4.0-11.0 [facility] [place] [facility] Comment on above: Performed By: #### C BCMAN ####[facility] Ddxcemkkit39[address] [place], [place] [address]Dr. Ricardo Rocha CULTURE BLOODon 06-10-2022 Microscopic examination of blood, culture Culture Observations: Positive blood culture. Pediatric bottle. Culture Observations: Please refer to for susceptibility testing. Isolate 1 Staphylococcus aureus Growth of Normal [facility] Comment on above: Performed By: #### B LDCX2 ####[facility] Qebgqeaaly024[address] [place], [place] [address]Dr. Ricardo Rocha LACTATE/LACTIC ACIDon 2021 Lactate [Moles/Vol] 1.9 mmol/L Normal 0.4-1.9 [facility] Comment on above: Performed By: #### L ACT ####[facility] Hlkkxbtopv[address] [place], [place] [address]Dr. Ricardo Rocha LIPASEon 06-10-2022 Lipase [Catalytic activity/Vol] 164.0 U/L Normal 73.0-393.0 [facility] [place] [facility] Comment on above: Performed By: #### H STROPN, LIPA, CMP, TSH ####[facility] Yreecqdaut9[address] [place] [address]Dr. Ricardo Rocha POINT OF CARE GLUCOSEon 05-22 Glucose [Mass/Vol] 583 mg/dL Critically high 74-106 [facility] Comment on above: Result Comment: Resu lt Not Confirmed Performed By: #### P OCGLUC ####[facility] Ddjedvfgju0148 [place] [address]Dr. Ricardo Rocha PROF 14(COMP METB)on 022 Albumin [Mass/Vol] 3.0 g/dL Critically low 3.4-5.0 [facility] Comment on above: Performed By: #### H STROPN, LIPA, CMP, TSH ####[facility] Beppthgyfa3010 [place] [address]Dr. Ricardo Rocha Albumin/Globulin [Mass ratio] 0.5 {ratio} Normal [facility] [place] [facility] Comment on above: Performed By: #### H STROPN, LIPA, CMP, TSH ####[facility] Vxbjfnlufn5995 [place] [address]Dr. Ricardo Rocha ALP [Catalytic activity/Vol] 116 U/L Normal 46-116 [facility] [place] [facility] Comment on above: Performed By: #### H STROPN, LIPA, CMP, TSH ####[facility] Ksdugilhjp8873 [place] [address]Dr. Ricardo Rocha ALT [Catalytic activity/Vol] 15 U/L Normal 14-59 [facility] [place] [facility] Comment on above: Performed By: #### H STROPN, LIPA, CMP, TSH ####[facility] Kqooefxfoh3378 [place] [address]Dr. Ricardo Rocha Anion gap [Moles/Vol] 15.7 mmol/L Normal [facility] [place] [facility] Comment on above: Performed By: #### H STROPN, LIPA, CMP, TSH ####[facility] Xnbrdamorz3087 [place] [address]Dr. Ricardo Rocha AST [Catalytic activity/Vol] 16 U/L Normal 15-37 [facility] [place] [facility] Comment on above: Performed By: #### H STROPN, LIPA, CMP, TSH ####[facility] Pooiragwoe3189 [place] [address]Dr. Ricardo Rocha Bilirubin [Mass/Vol] 0.5 mg/dL Normal 0.2-1.0 [facility] [place] [facility] Comment on above: Performed By: #### H STROPN, LIPA, CMP, TSH ####[facility] Kikfwpkbzg0112 [place] [address]Dr. Ricardo Rocha Calcium [Mass/Vol] 9.4 mg/dL Normal 8.5-10.1 [facility] Comment on above: Performed By: #### H STROPN, LIPA, CMP, TSH ####[facility] Xbbgyvvqar8898 [place] [address]Dr. Ricardo Rocha Chloride [Moles/Vol] 95 mmol/L Critically low 98-107 [facility] Comment on above: Performed By: #### H STROPN, LIPA, CMP, TSH ####[facility] Gcjdghbqtj2206 [place] [address]Dr. Ricardo Rocha CO2 [Moles/Vol] 22.1 mmol/L Normal 21.0-32.0 [facility] Comment on above: Performed By: #### H STROPN, LIPA, CMP, TSH ####[facility] Xnlthxkxgw9894 [place] [address]Dr. Ricardo Rocha Creatinine [Mass/Vol] 2.23 mg/dL Critically high 0.55-1.02 [facility] [place] [facility] Comment on above: Performed By: #### H STROPN, LIPA, CMP, TSH ####[facility] Slistswgau3653 [place] [address]Dr. Ricardo Rocha EGFR-AF ROMANIAN 27 mL/min/1.73m2 Critically low >=60 [facility] Comment on above: Performed By: #### H STROPN, LIPA, CMP, TSH ####[facility] Kqpxeqpujh5108 [place] [address]Dr. Ricardo Rocha EGFR-NON AF ROMANIAN 22 mL/min/1.73m2 Critically low >=60 [facility] [place] [facility] Comment on above: Performed By: #### H STROPN, LIPA, CMP, TSH ####[facility] Mecezsxxjq6326 [place] [address]Dr. Ricardo Rocha Globulin (S) [Mass/Vol] 6.5 g/dL Normal [facility] [place] [facility] Comment on above: Performed By: #### H STROPN, LIPA, CMP, TSH ####[facility] Aefuhaztzm4298 [place] [address]Dr. Ricardo Rocha Glucose [Mass/Vol] 593 mg/dL Critically high 74-106 [facility] Comment on above: Performed By: #### H STROPN, LIPA, CMP, TSH ####[facility] Cslhymbfjo1970 [place] [address]Dr. Ricardo Rocha Potassium [Moles/Vol] 3.8 mmol/L Normal 3.5-5.1 [facility] [place] [facility] Comment on above: Performed By: #### H STROPN, LIPA, CMP, TSH ####[facility] Fqwghcvsfn1662 [place] [address]Dr. Ricardo Rocha Protein [Mass/Vol] 9.5 g/dL Critically high 6.4-8.2 [facility] Comment on above: Performed By: #### H STROPN, LIPA, CMP, TSH ####[facility] Adddlqhsne3101 [place] [address]Dr. Ricardo Rocha Sodium [Moles/Vol] 129 mmol/L Critically low 136-145 [facility] Comment on above: Performed By: #### H STROPN, LIPA, CMP, TSH ####[facility] Bkuqbkvbmp9198 [place] [address]Dr. Ricardo Rocha Urea nitrogen [Mass/Vol] 40.0 mg/dL Critically high 7.0-18.0 [facility] [place] [facility] Comment on above: Performed By: #### H STROPN, LIPA, CMP, TSH ####[facility] Pasgyjqaza8974 [place] [address]Dr. Ricardo Rocha Urea nitrogen/Creatinine [Mass ratio] 17.9 mg/mg Normal [facility] Comment on above: Performed By: #### H STROPN, LIPA, CMP, TSH ####[facility] Qentfjzqxk9306 [place] [address]Dr. Ricardo Rocha PROTIMEon 06-10-2022 INR Coag (PPP) [Relative time] 1.00 {INR} Normal [facility] Comment on above: Performed By: #### P TT, PT ####[facility] Vccykpagqs4669 [place] [address]Dr. Ricardo Rocha INR GUIDELINES SEE BELOW Normal [facility] Comment on above: Result Comment: AMBROSIO RED INR: 2.0 - 3.0 CONDITIONS NOT LISTED BELOW 2.5 - 3.5 FOR PROSTHETIC HEART VALVE REPLACEMENT 2.5 - 3.5 RECURRENT THROMBOSIS Performed By: #### P TT, PT ####[facility] [address]yluamvfz[address] [place], [place] [address]Dr. Ricardo Rocha PT Coag (PPP) [Time] 10.8 s Normal 9.0-11.6 [facility] Comment on above: Performed By: #### P TT, PT ####[facility] Jehcjzutas[address] [place], [place] [address]Dr. Ricardo Rocha PTTon 06-10-2022 aPTT Coag (Bld) [Time] 31.7 s Normal 22.3-36.2 [facility] Comment on above: Performed By: #### P TT, PT ####[facility] Fsprspqbqw[address] [place], [place] [address]Dr. Ricardo Rocha TROPONIN, HIGH SENSITIVITYon 06-10-2022 HSTROP 30.9 pg/mL Normal 4.0-51.3 [facility] Comment on above: Result Comment: CUT- OFF POINTS HAVE BEEN ESTABLISHED BASED ON THE FOURTH UNIVERSAL DEFINITIONS OF MYOCARDIALINFARCTION. THE UPPER REFERENCE LIMIT (URL) OF TROPONIN, DEFINED THE 99TH PERCENTILE OFcTnI DISTRIBUTION IN A REFERENCE POPULATION, HAS BEEN CONFIRMED THE DECISION THRESHOLDFOR AK DIAGNOSIS. Performed By: #### H STROPN, LIPA, CMP, TSH ####[facility] Fboojbhhei8229 [place] [address]Dr. Ricardo Rocha TSHon 06-10-2022 TSH 0.147 uIU/mL Critically low 0.358-3.[address] [facility] Comment on above: Performed By: #### H STROPN, LIPA, CMP, TSH ####[facility] Krcftxefkv2408 [place] [address]Dr. Ricardo Rocha XR FOOT ALINE MIN 3 VIEWSon XR FOOT ALINE MIN 3 VIEWS Normal [facility] XR HAND RT MIN 3Von 06-02-20 XR HAND RT MIN 3V Normal [facility] CULTURE WOUNDon 05-15-2022 CULTURE WOUND Normal [facility] Comment on above: Performed By: #### W OUNDCX ####[facility] [address]kztvzedke[address] [place], [place] [address]Dr. Ricardo Rocha CBC AUTO DIFFon 2022 BASO # 0.0 103/ul Normal 0.0-0.1 [facility] Comment on above: Performed By: #### C BC ####[facility] [address] [place] [address]Dr. Ricardo Rocha Basophils/100 WBC (Bld) 0.7 % Normal 0.2-2.0 [facility] Comment on above: Performed By: #### C BC ####[facility] [address] [place], [place] [address]Dr. Ricardo Rocha EO # 0.1 103/ul Normal 0.0-0.7 [facility] Comment on above: Performed By: #### C BC ####[facility] Iwpbmfkobx4653 [place] [address]Dr. Ricardo Rocha Eosinophils/100 WBC (Bld) 2.1 % Normal 0.9-7.0 [facility] Comment on above: Performed By: #### C BC ####[facility] [address] [place], [place] [address]Dr. Ricardo Rocha Erythrocyte distribution width (RBC) [Ratio] 13.2 % Normal 11.0-15.0 [facility] Comment on above: Performed By: #### C BC ####[facility] [address] [place] [address]Dr. Ricardo Rocha Hematocrit (Bld) [Volume fraction] 36.6 % Normal 36.0-48.0 [facility] Comment on above: Performed By: #### C BC ####[facility] Igcsairluz4[address] [place] [address]Dr. Ricardo Rocha Hemoglobin (Bld) [Mass/Vol] 11.9 g/dL Critically low 12.0-16.0 [facility] Comment on above: Performed By: #### C BC ####[facility] Corurovpar[address] [place] [address]Dr. Ricardo Rocha IG # 0.03 10e3/ul Normal 0.00-0.03 [facility] Comment on above: Performed By: #### C BC ####[facility] Zzfgmscxyj5491 [place] [address]Dr. Ricardo Rocha IG % 0.5 % Normal 0.0-0.5 [facility] Comment on above: Performed By: #### C BC ####[facility] Oiz[address]xgzkw[address] [place] [address]Dr. Ricardo Rocha LYMPH # 2.1 103/ul Normal 1.2-3.8 [facility] Comment on above: Performed By: #### C BC ####[facility] [address]phrewlgr[address] [place] [address]DrIrina Nanomarcial Rocha Lymphocytes/100 WBC (Bld) 33.8 % Normal 20.5-60.0 [facility] Comment on above: Performed By: #### C BC ####[facility] Foagrajhdc[address] [place] [address]Dr. Nanomarcial Rocha MANUAL DIFF REQ NO Normal [facility] Comment on above: Performed By: #### C BC ####[facility] Tdqdrsnvqg2329 [place] [address]DrIrina Ricardo Aj MCH (RBC) [Entitic mass] 25.7 pg Critically low 26.7-34.0 [facility] Comment on above: Performed By: #### C BC ####[facility] [address] [place], [place] [address]Dr. Ricardo Rocha MCHC (RBC) [Mass/Vol] 32.5 g/dL Normal 29.9-35.2 [facility] Comment on above: Performed By: #### C BC ####[facility] [address]xlvjpm[address] [place] [id number]. Ricardo Aj MCV (RBC) [Entitic vol] 79.0 fL Critically low 81.0-99.0 [facility] Comment on above: Performed By: #### C BC ####[facility] [address] [place] [address]Dr. Nanomarcial Aj MONO # 0.4 103/ul Normal 0.3-0.8 [facility] Comment on above: Performed By: #### C BC ####[facility] Fmwdkfmbbs7[address] [place] [address]Dr. Ricardo Rocha Monocytes/100 WBC (Bld) 6.2 % Normal 1.7-12.0 [facility] Comment on above: Performed By: #### C BC ####[facility] [address] [place], [place] [address]Dr. Nanomarcial Aj NEUT # 3.5 103/ul Normal 1.4-6.5 [facility] Comment on above: Performed By: #### C BC ####[facility] [address]tv[address] [place] [address]Dr. Nanomarcial Rocha Neutrophils/100 WBC (Bld) 56.7 % Normal 43.0-75.0 [facility] Comment on above: Performed By: #### C BC ####[facility] Iem[address]zqfbk[address] [place] [address]Dr. Ricardo Aj Platelet mean volume (Bld) [Entitic vol] 10.9 fL Normal 9.5-13.5 [facility] Comment on above: Performed By: #### C BC ####[facility] Kxb[address]juhrb[address] [place] [address]Dr. Nanomarcial Aj PLT 241 103/ul Normal 150-450 [facility] Comment on above: Performed By: #### C BC ####[facility] Ghfhpyuglk5226 [place] [address]Dr. Ricardo Aj RBC 4.63 106/ul Normal 4.20-5.40 [facility] [place] [facility] Comment on above: Performed By: #### C BC ####[facility] Opcrdouxfi[address] [place] [address]Dr. Ricardo Aj WBC 6.1 103/ul Normal 4.0-11.0 [facility] Comment on above: Performed By: #### C BC ####[facility] [address]wesslyc[address] [place] [address]Dr. Nanomarcial Rocha PROF CHEM 8 (BAS METB)on Anion gap [Moles/Vol] 11.8 mmol/L Normal [facility] [place] [facility] Comment on above: Performed By: #### B MP ####[facility] Xrzhudgmsh[address] [place] [address]Dr. Ricardo Rocha Calcium [Mass/Vol] 9.2 mg/dL Normal 8.5-10.1 [facility] Comment on above: Performed By: #### B MP ####[facility] [address]os[address] [place], [place] [address]Dr. Ricardo Rocha Chloride [Moles/Vol] 99 mmol/L Normal 98-107 [facility] Comment on above: Performed By: #### B MP ####[facility] Z[address] [place], [place] [address]Dr. Ricardo Rocha CO2 [Moles/Vol] 24.7 mmol/L Normal 21.0-32.0 [facility] Comment on above: Performed By: #### B MP ####[facility] Nycvfcwqkc3475 [place] [address]Dr. Ricardo Aj Creatinine [Mass/Vol] 1.48 mg/dL Critically high 0.55-1.02 [facility] Comment on above: Performed By: #### B MP ####[facility] Utxcioqxks[address] [place] [address]Dr. Nanomarcial Aj EGFR-AF ROMANIAN 43 mL/min/1.73m2 Critically low >=60 [facility] Comment on above: Performed By: #### B MP ####[facility] Qclfquncaf5[address] [place] [address]Dr. Ricardo Rocha EGFR-NON AF ROMANIAN 36 mL/min/1.73m2 Critically low >=60 [facility] [place] [facility] Comment on above: Performed By: #### B MP ####[facility] [address] [place], [place] [address]Eh. Ricardo Rocha Glucose [Mass/Vol] 431 mg/dL Critically high 74-106 T [facility] Comment on above: Performed By: #### B MP ####[facility] [address]wokvzum18[address] [place] [address]Dr. Ricardo Rocha Potassium [Moles/Vol] 4.5 mmol/L Normal 3.5-5.1 [facility] [place] [facility] Comment on above: Performed By: #### B MP ####[facility] Ibrsauigbk6[address] [place] [address]Dr. Ricardo Rocha Sodium [Moles/Vol] 131 mmol/L Critically low 136-145 Th [facility] Comment on above: Performed By: #### B MP ####[facility] Okfpxtukon9958 [place] [address]Dr. Ricardo Rocha Urea nitrogen [Mass/Vol] 23.0 mg/dL Critically high 7.0-18.0 [facility] [place] [facility] Comment on above: Performed By: #### B MP ####[facility] Cipmpkdeoh0945 [place] [address]Dr. Ricardo Rocha Urea nitrogen/Creatinine [Mass ratio] 15.5 mg/mg Normal [facility] [place] [facility] Comment on above: Performed By: #### B MP ####[facility] Tjaljjrkwg[address] [place] [address]Dr. Ricardo Rocha XR TOES ALINE MIN 2 Von 2021 XR TOES ALINE MIN 2 V Normal [facility] ALLIED HEALTHon 01-21-2021 ALLIED HEALTH HNO ID: [id number] Author: RT Parveen(R) Service: ? Author Type: Senior Marketing Engineer Type: Allied Health Filed: 01/20/2021 10:30 PM [...] Parveen(R) January 20, 2021 10:29 PM Normal [facility] Basic Metabolic Panlon 01-21 Anion gap [Moles/Vol] 7 mmol/L Low 9-18 [facility] Calcium [Mass/Vol] 8.8 mg/dL Normal 8.5-10.2 [facility] Chloride [Moles/Vol] 99 mmol/L Normal 97-105 [facility] CO2 [Moles/Vol] 25 mmol/L Normal 22-30 [facility] Creatinine [Mass/Vol] 1.51 mg/dL High 0.58-0.96 [facility] eGFR- Amer. [address] [facility] ospital eGFR-All Other Races 35 . Normal [facility] Comment on above: Result Comment: eGFR (Estimated [...] GFR. Glucose [Mass/Vol] 141 mg/dL High 74-99 [facility] Comment on above: Result Comment: The [place] [employer] (ADA) provides guidance for cutoff [...] Standards of Medical Care in Diabetes 2016, [place] [employer]. Diabetes Care. 2016.39(Suppl 1). Potassium [Moles/Vol] 4.7 mmol/L Normal 3.7-5.1 [facility] Sodium [Moles/Vol] 131 mmol/L Low 136-144 [facility] ospital Urea nitrogen [Mass/Vol] 42 mg/dL High 7-21 [facility] CBCon 01-21-2021 Absolute nRBC <0.01 Normal <0.01 [facility] al Erythrocyte distribution width (RBC) [Ratio] 13.1 % Normal 11.5-15.0 [facility] Hematocrit (Bld) [Volume fraction] 30.0 % Low 36.0-46.0 [facility] Hemoglobin (Bld) [Mass/Vol] 9.5 g/dL Low 11.5-15.5 [facility] MCH 24.4 pG Low 26.0-34.0 [facility] MCHC (RBC) [Mass/Vol] 31.7 g/dL Normal 30.5-36.0 [facility] MCV (RBC) [Entitic vol] 77.1 fL Low 80.0-100.0 [facility] Platelet mean volume (Bld) [Entitic vol] 11.1 fL Normal [facility].0[facility]12.7 [facility] Platelets (Bld) [#/Vol] 358 10*3/uL Normal 150-400 [facility] RBC (Bld) [#/Vol] 3.89 10*6/uL Low 3.90-5.20 [facility] WBC (Bld) [#/Vol] 9.64 10*3/uL Normal 3.70-11.00 [facility] CNDSon 01-21-2021 CNDS HNO ID: [id number] Author: Inna Hansen DO Service: Hospital Medicine [...] Team: Attending Provider: Inna Hansen DO Physician [employer] Supervisor: Garrett Simon PA-C Consulting: Taurus Ballard MD [...] PCP: referred to a new PCP in [place]. Future Appointments Date Time Provider Department Center 01/29/2021 11:40 AM Taurus Ballard MD [facility] The patient's risk for 30-day readmission is determined using the following contributing factors: Pt variables contributing to increased readmission risk: 42 Most Recent (more content not included)... Normal [facility] MRI KIDNEY WO/W IVCONon 06-0 MRI KIDNEY WO/W IVCON * * *Final Report* * * DATE OF EXAM: Jan 20 2021 10:35PM [facility] 0721 - MRI KIDNEY WO/W IVCON / PROCEDURE REASON: Renal cyst * * * * Physician Interpretation * * * * EXAMINATION: MRI ABDOMEN WITHOUT AND WITH IV CONTRAST CLINICAL HISTORY: Renal mass characterization. TECHNIQUE: A renal MRI was performed on a MR system utilizing the torso phased-array coil. Pulse sequences included: axial precontrast T1 weighted in- and [id number], axial and coronal HASTE, axial DWI with [...] be communicated with the ordering provider via [employer] staff message or phone message by [employer] within 2 business days of report finalization. Algorithms for management of incidental imaging findings can be found on the [facility] Intranet Sharepoint site at: [email or web address] Managing%20Incidental%2 0Findi ngs%20at%20Imaging/Form s/AllItems.[email or web address] Product Management Internship: GUILLE Transcribe Date/Time: Jan 21 2021 8:17A Dictated by : MALLORY AHN MD This examination was interpreted and the report reviewed and electronically signed by: MALLORY AHN MD on Jan 21 2021 8:49AM EST [id number] [id number] Invalid Interpretation Code [facility] Basic Metabolic Panlon 01-20 Anion gap [Moles/Vol] 11 mmol/L Normal 9-18 [facility] Calcium [Mass/Vol] 8.7 mg/dL Normal 8.5-10.2 [facility] ospital Chloride [Moles/Vol] 97 mmol/L Normal 97-105 [facility] CO2 [Moles/Vol] 24 mmol/L Normal 22-30 [facility] Creatinine [Mass/Vol] 1.46 mg/dL High 0.58-0.96 [facility] eGFR- Amer. [address] [facility] ospital eGFR-All Other Races 36 . Normal [facility] Comment on above: Result Comment: eGFR (Estimated [...] ospital Comment on above: Result Comment: The [place] [employer] (ADA) provides guidance for cutoff [...] Standards of Medical Care in Diabetes 2016, [place] [employer]. Diabetes Care. 2016.39(Suppl 1). Potassium [Moles/Vol] 3.9 mmol/L Normal 3.7-5.1 [facility] Sodium [Moles/Vol] 132 mmol/L Low 136-144 [facility] Urea nitrogen [Mass/Vol] 53 mg/dL High 7-21 [facility] CBCon 01-20-2021 Absolute nRBC <0.01 Normal <0.01 [facility] E[facility]th[facility] distribution width (RBC) [Ratio] 12.8 % Normal 11.5-15.0 [facility] Hematocrit (Bld) [Volume fraction] 27.7 % Low 36.0-46.0 [facility] Hemoglobin (Bld) [Mass/Vol] 8.9 g/dL Low 11.5-15.5 [facility] MCH 24.5 pG Low 26.0-34.0 [facility] MCHC (RBC) [Mass/Vol] 32.1 g/dL Normal 30.5-36.0 [facility] MCV (RBC) [Entitic vol] 76.3 fL Low 80.0-100.0 [facility] Platelet mean volume (Bld) [Entitic vol] 11.1 fL Normal 9.0-12.7 [facility] Platelets (Bld) [#/Vol] 321 10*3/uL Normal 150-400 [facility] RBC (Bld) [#/Vol] 3.63 10*6/uL Low 3.90-5.20 [facility] WBC (Bld) [#/Vol] 11.05 10*3/uL High 3.70-11.00 [facility] CONSULT PROGon 01-20-2021 CONSULT PROG HNO ID: [id number] Author: Rajendra Cruz MD Service: Nephrology Author Type: Physician Type: Consult Progress Note Filed: 01/20/2021 1:44 PM Note Text: [facility] NEPHROLOGY CONSULT PROGRESS NOTE SERVICE DATE: [...] DATE: January 20, 2021 1:43 PM PHONE: [phone] FOR AFTER HOUR CONCERNS BETWEEN 7PM - 7AM CONTACT ON-CALL NEPHROLOGY STAFF Normal [facility] THERAPY NTon 01-20-2021 THERAPY NT HNO ID: [id number] Author: Afia Radford, PT Service: Physical Therapy Author Type: Physical Therapist Type: Therapy (PT/OT/Speech/Resp) Filed: 01/20/2021 3:32 PM Note Text: Physical Therapy Treatment SERVICE DATE: 01/20/2021 SERVICE TIME: 1330 to 1353 ROOM: [place] [address] Recommended Discharge Disposition: Home PT Recommended Discharge [...] 0 Tub/Shower Type: tub shower Laundry: basement, [id number]-uz-fbn Equipment Owned: Cane;Standard Walker Prior Functional Level: [...] Diagnosis: Reduced mobility-other Interventions Provided: Gait Training (61653);Therapeutic Exercise (54796) Therapeutic Exercise (03353) Treatment Minutes: 8 Pt performed in supine position: AP, QS, GS x 10 B LE, pt instructed to do every hour while awake on their own. 7 days a week, HS, hip ABD, SAQ, SLR 10-20 reps/ 2-3x/day/ 7 days/week Gait Training (14617) Treatment Minutes: 15 $ Gait Training (90794) Billed Units: 1 unit Training AND education [...] 20, 2021 TIME: (more content not included)... [facility] THERAPY NT HNO ID: [id number] Author: Heidy Wright OT/L Service: Occupational Therapy Author Type: Occupational Therapist Type: Therapy (PT/OT/Speech/Resp) Filed: 01/20/2021 12:15 PM Note Text: Occupational Therapy Treatment SERVICE DATE: 01/20/2021 SERVICE TIME: 1155 to 1205 ROOM: [place] [address] Recommended Discharge Disposition: Home OT Recommended Discharge [...] 0 Tub/Shower Type: tub shower Laundry: basement, [id number]-[id number]-vmd Equipment Owned: Cane;Standard Walker Prior Functional Level: [...] (generalized);General symptoms and signs-other Interventions Provided: Self Penitentiary Management (00225) Self Penitentiary Management (35959) Treatment Minutes: 10 $ Self Penitentiary Management (45366) Billed Units: 1 unit Training AND education provided in: Benefits of in (more content not included)... [facility] THERAPY NT HNO ID: [id number] Author: KRUNAL Navarro Service: Occupational Therapy Author Type: Occupational Therapist Type: Therapy (PT/OT/Speech/Resp) Filed: 01/20/2021 8:24 AM Note Text: OCCUPATIONAL THERAPY MISSED VISIT SERVICE DATE: 01/20/2021 SERVICE TIME: 819 to 819 ROOM: [place] [address] Attempted Treatment. Patient not seen due to Declined. Pt states, It's too early when OT attempted to work with her. Will re-attempt as schedule permits. SIGNATURE: Heidy Wright OT/Broder[place] PATIENT NAME: Aislinn Wheeler DATE: January 20, 2021 TIME: 8:24 AM Normal [facility] Basic Metabolic Panlon 01-19 Anion gap [Moles/Vol] 11 mmol/L Normal 9-18 [facility] Calcium [Mass/Vol] 8.5 mg/dL Normal 8.5-10.2 [facility] Chloride [Moles/Vol] 93 mmol/L Low 97-105 [facility] CO2 [Moles/Vol] 24 mmol/L Normal 22-30 [facility] Creatinine [Mass/Vol] 1.92 mg/dL High 0.58-0.96 [facility] eGFR- Amer. [address] [facility] ospital eGFR-All Other Races 26 . Normal [facility] Comment on above: Result Comment: eGFR (Estimated [...] ospital Comment on above: Result Comment: The [place] [employer] (ADA) provides guidance for cutoff [...] Standards of Medical Care in Diabetes 2016, [place] [employer]. Diabetes Care. 2016.39(Suppl 1). Potassium [Moles/Vol] 4.2 mmol/L Normal 3.7-5.1 [facility] Sodium [Moles/Vol] 128 mmol/L Low 136-144 [facility] Urea nitrogen [Mass/Vol] 77 mg/dL High 7-21 [facility] Anion gap [Moles/Vol] 11 mmol/L Normal 9-18 [facility] Calcium [Mass/Vol] 8.3 mg/dL Low 8.5-10.2 [facility] Chloride [Moles/Vol] 88 mmol/L Low 97-105 [facility] CO2 [Moles/Vol] 23 mmol/L Normal 22-30 [facility] Creatinine [Mass/Vol] 1.93 mg/dL High 0.58-0.96 [facility] eGFR- Amer. [address] [facility] ospital eGFR-All Other Races 26 . Normal [facility] Comment on above: Result Comment: eGFR (Estimated [...] GFR. Glucose [Mass/Vol] 292 mg/dL High 74-99 [facility] Comment on above: Result Comment: The [place] [employer] (ADA) provides guidance for cutoff [...] Standards of Medical Care in Diabetes 2016, [place] [employer]. Diabetes Care. 2016.39(Suppl 1). Potassium [Moles/Vol] 3.8 mmol/L Normal 3.7-5.1 [facility] Sodium [Moles/Vol] 122 mmol/L Low 136-144 [facility] ospital Urea nitrogen [Mass/Vol] 82 mg/dL High 7-21 [facility] CBCon 01-19-2021 Absolute nRBC <0.01 Normal <0.01 [facility] Erythrocyte distribution width (RBC) [Ratio] 12.8 % Normal 11.5-15.0 [facility] Hematocrit (Bld) [Volume fraction] 27.5 % Low 36.0-46.0 [facility] Hemoglobin (Bld) [Mass/Vol] 9.1 g/dL Low 11.5-15.5 [facility] MCH 24.9 pG Low 26.0-34.0 [facility] MCHC (RBC) [Mass/Vol] 33.1 g/dL Normal 30.5-36.0 [facility] MCV (RBC) [Entitic vol] 75.1 fL Low 80.0-100.0 [facility] Platelet mean volume (Bld) [Entitic vol] 11.2 fL Normal 9.0-12.7 [facility] Platelets (Bld) [#/Vol] 297 10*3/uL Normal 150-400 [facility] RBC (Bld) [#/Vol] 3.66 10*6/uL Low 3.90-5.20 [facility] WBC (Bld) [#/Vol] 12.14 10*3/uL High 3.70-11.00 [facility] CONSULT PROGon 01-19-2021 CONSULT PROG HNO ID: [id number] Author: Rajendra Cruz MD Service: Nephrology Author Type: Physician Type: Consult Progress Note Filed: 01/19/2021 2:40 PM Note Text: [facility] NEPHROLOGY CONSULT PROGRESS NOTE SERVICE DATE: [...] DATE: January 19, 2021 2:27 PM PHONE: [phone] FOR AFTER HOUR CONCERNS BETWEEN 7PM - 7AM CONTACT ON-CALL NEPHROLOGY STAFF Normal [facility] NUTRITIONon 01-19-2021 NUTRITION HNO ID: [id number] Author: Michelle Louis RD Service: Nutrition Therapy [...] history;Intake records;Patient/family self-report;Weight loss;Nausea;Vomiting Estimated kilocalorie needs: 4103-0945 Calorie Calculation Method: 30-35 kcals/kg Estimated protein [...] Question: Carbohydrate Control Answer: 3-5 CARBS/MEAL 01/18/21 3768 Anthropometrics: Height: 152.4 cm (5') Weight: 44.1 [...] January 19, 2021 TIME: 10:59 AM PAGER: [id number] I have reviewed the nutritional assessment note documented by the credit intern and I personally participated in the miller components. I have discussed the case and nutritional management of the patient's care. Michelle Louis MS,RD,LD,[facility] THERAPY NTon 01-19-2021 THERAPY NT HNO ID: [id number] Author: Afia Radford, PT Service: Physical Therapy Author Type: Physical Therapist Type: Therapy (PT/OT/Speech/Resp) Filed: 01/19/2021 2:57 PM Note Text: Physical Therapy Evaluation SERVICE DATE: 01/19/2021 SERVICE TIME: 1307 to 1331 ROOM: [place] [address] Recommended Discharge Disposition: Home PT Anticipated Discharge [...] 0 Tub/Shower Type: tub shower Laundry: basement, [id number]-wzq Equipment Owned: Cane;Standard Walker Prior Functional Level: [...] Diagnosis: Reduced mobility-other Interventions Provided: Evaluation;Therapeutic Exercise (81864);Gait Training (74827) $ Evaluation-Low (10683) Billed Units: 1 unit Therapeutic Exercise (95943) Treatment Minutes: 1 Patient performed in seated position: Marching, AP/HR, hip ABD, LAQ x10 B LE- instructions written on white board for pt to complete on her own. Gait Training (31915) Treatment Minutes: 8 $ Gait Training (91299) Billed Units: 1 unit Training AND education [...] present during visit: Aleksander Syed, SPT Normal [facility] Basic Metabolic Panlon 01-18 Anion gap [Moles/Vol] 13 mmol/L Normal 9-18 [facility] Calcium [Mass/Vol] 8.8 mg/dL Normal 8.5-10.2 [facility] ospital Chloride [Moles/Vol] 88 mmol/L Low 97-105 [facility] CO2 [Moles/Vol] 22 mmol/L Normal 22-30 [facility] Creatinine [Mass/Vol] 2.21 mg/dL High 0.58-0.96 [facility] eGFR- Amer. [address] [facility] ospital eGFR-All Other Races 23 . Normal [facility] Comment on above: Result Comment: eGFR (Estimated [...] ospital Comment on above: Result Comment: The [place] [employer] (ADA) provides guidance for cutoff [...] Standards of Medical Care in Diabetes 2016, [place] [employer]. Diabetes Care. 2016.39(Suppl 1). Potassium [Moles/Vol] 3.7 mmol/L Normal 3.7-5.1 [facility] Sodium [Moles/Vol] 123 mmol/L Low 136-144 [facility] Urea nitrogen [Mass/Vol] 93 mg/dL High 7-21 [facility] Anion gap [Moles/Vol] 16 mmol/L Normal 9-18 [facility] Calcium [Mass/Vol] 9.0 mg/dL Normal 8.5-10.2 [facility] Chloride [Moles/Vol] 93 mmol/L Low 97-105 [facility] CO2 [Moles/Vol] 21 mmol/L Low 22-30 [facility] Creatinine [Mass/Vol] 2.59 mg/dL High 0.58-0.96 [facility] eGFR- Amer. [address] [facility] ospital eGFR-All Other Races 19 . Normal [facility] Comment on above: Result Comment: eGFR (Estimated [...] GFR. Glucose [Mass/Vol] 130 mg/dL High 74-99 [facility] Comment on above: Result Comment: The [place] [employer] (ADA) provides guidance for cutoff [...] Standards of Medical Care in Diabetes 2016, [place] [employer]. Diabetes Care. 2016.39(Suppl 1). Potassium [Moles/Vol] 4.7 mmol/L Normal 3.7-5.1 [facility] Sodium [Moles/Vol] 130 mmol/L Low 136-144 [facility] Urea nitrogen [Mass/Vol] 97 mg/dL High 7-21 [facility] CASE [facility] [id number] Author: Nicol Landin RN Service: ? 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 Stated Goals: To have reduction in pain;To [...] scheduled Advance Directive: Current Advance Directive: None Kiln Packer Attempted to Assist with AD Completion: Yes [...] Walker Has the Patient Been in a [facility]pc Facility in the Past 30 days?: No [...] and plan for meeting these needs: Patient's gaxhpkgv-da-pzk and son live close by and come over to help often Patient's perception of need for this admission: necessary Medication Adherance I am convinced of the importance of my prescription medication: 0 - Agree Completely I worry that my prescription medication will do more harm than good to me : 0 - Disagree Completely I feel financially burdened by my phz-sc-mmtjqh expenses for my prescription medication:: 0 - Disagree Completely Risk Score: 0 Patient is categorized as: Low risk < 2 Are you interested in bedside delivery of your medications? Yes Is Patient Psychosocially Complex?: Yes, refer to Social Work ASSESSMENT AND PLAN: Medical Needs: Medical Needs: Two or more chronic diseases Psychosocial Needs: Psychosocial Needs: None FREEDOM OF CHOICE EXPLAINED: [place] of Choice Given: No Reason Not Given: [...] and hospitalized about 1 month ago in [place] but no resolution of her symptoms. She [...] 18, 2021 TIME: 10:51 AM PAGER/CONTACT #: [phone] Normal [facility] CBCon 01-18-2021 Absolute nRBC <0.01 [facility]0.[facility]th[facility] distribution width (RBC) [Ratio] 13.0 % Normal 11.5-15.0 [facility] Hematocrit (Bld) [Volume fraction] 31.2 % Low 36.0-46.0 [facility] Hemoglobin (Bld) [Mass/Vol] 9.9 g/dL Low 11.5-15.5 [facility] MCH 24.4 pG Low 26.0-34.0 [facility] MCHC (RBC) [Mass/Vol] 31.7 g/dL Normal 30.5-36.0 [facility] MCV (RBC) [Entitic vol] 77.0 fL Low 80.0-100.0 [facility] Platelet mean volume (Bld) [Entitic vol] 10.8 fL Normal 9.0-12.7 [facility] Platelets (Bld) [#/Vol] 310 10*3/uL Normal 150-400 [facility] RBC (Bld) [#/Vol] 4.05 10*6/uL Normal 3.90-5.20 [facility] WBC (Bld) [#/Vol] 17.03 10*3/uL High 3.70-11.00 [facility] CONSULTon 01-18-2021 CONSULT HNO ID: [id number] Author: Annie Trinidad DO Service: Hypertension AND [...] Noted a no-show appointment to urology at [facility]. She also reports that she has [...] for n (more content not included)... Normal [facility] CONSULT HNO ID: [id number] Author: Taurus Ballard MD Service: Urology Author Type: Physician Type: Consults Filed: 01/18/2021 8:27 AM Note Text: [facility] UROLOGY [...] the pa (more content not included)... Normal [facility] Creatinine,Urine,Ranon 01-18 Creatinine,Urine,Ran 33.5 mg/dL Normal 20-300 [facility] Comment on above: Performed By: #### U SAUNDRA, UOSM, UCRR ####[facility], [place] [phone] Magnesiumon 01-18-2021 Magnesium [Mass/Vol] 1.9 mg/dL Normal 1.7-2.3 [facility] NURSING PROGon 01-18-2021 NURSING PROG HNO ID: [id number] Author: Barbara Spicer RN Service: ? Author Type: Registered Nurse Type: Nursing Progress Note Filed: 01/18/2021 10:28 AM Note Text: Nursing Progress Note Patient Name: Aislinn Wheeler Patient Location: [place] [address]/[facility] Daily Note:pt report given to pete LE. Pt VSS. Pt belongings packed. This note was completed by: Barbara Spicer Normal [facility] Osmolalityon 01-18-2021 Osmolality [Osmolality] 298 mosm/kg Normal 275-300 [facility] Comment on above: Performed By: #### O SM ####[facility], [place] [phone] Osmolality, Urineon 01-19-20 21 Osmolality, Urine 273 mOsm/kg Normal 50-1200 [facility]spital Comment on above: Performed By: #### U SAUNDRA UOSM, UCRR ####[facility] [address], [place] [phone] Sepsis Lactateon 01-18-2021 Sepsis Lactate 0.9 mmol/L Normal <2.1 [facility] Sodium,Urine,Randomon 2020 Sodium (U) [Moles/Vol] 32 mmol/L Normal 14-216 [facility] Comment on above: Performed By: #### U ASUNDRA, UOSM, UCRR ####[facility] [address] [place], [place] [phone] THERAPY NTon 01-18-2021 THERAPY NT HNO ID: [id number] Author: Wendy Montes De Oca OT/L Service: Occupational Therapy Author Type: Occupational Therapist Type: Therapy (PT/OT/Speech/Resp) Filed: 01/18/2021 1:10 PM Note Text: Occupational Therapy Evaluation SERVICE DATE: 01/18/2021 SERVICE TIME: 0854 to 0915 ROOM: [place] [address] Recommended Discharge Disposition: Home OT Recommended Discharge [...] 0 Tub/Shower Type: tub shower Laundry: basement, [id number] Equipment Owned: Cane;Standard Walker CURRENT FUNCTIONAL STATUS: [...] and signs-other Interventions Provided: Evaluation $ Evaluation-Moderate (69361) Billed Units: 1 unit Training and education [...] DATE: January 18, 2021 TIME: 1:06 PM [facility] Urine Cultureon 01-18-2021 Bacteria identified Cx Nom (U) Sp. Request/Comment: - Specimen received in preservative Culture Result - No growth (<1,000 CFU/ml) [facility] Comment on above: Performed By: #### U RCUL ####[address] [phone] Blood Cultureon 01-17-2021 Bacteria identified Cx Nom (Bld) Culture Result - No growth 5 days Normal [facility] Comment on above: Performed By: #### B LCUL ####[place] [address], [place] [phone] C-Reactive Proteinon 021 C-Reactive Protein 32.4 mg/dL High <0.9 [facility] ospital Comment on above: Performed By: #### W SR ####[address] [phone] CBC and Differentialon 01-17 Abs Baso <0.03 Normal <0.11 [facility] Abs Eosin <0.03 Normal <0.46 [facility] Abs [place] 0.73 k/uL Normal <0.87 [facility] Abs Neut 14.70 k/uL High 1.45-7.50 [facility] Absolute nRBC <0.01 Normal <0.01 [facility] Basophils/100 WBC (Bld) 0.1 % Normal [facility] DTYPE Auto Diff Normal [facility] Eosinophils/100 WBC (Bld) 0.0 % Normal [facility] Erythrocyte distribution width (RBC) [Ratio] 13.1 % Normal 11.5-15.0 [facility] Hematocrit (Bld) [Volume fraction] 35.1 % Low 36.0-46.0 [facility] Hemoglobin (Bld) [Mass/Vol] 11.3 g/dL Low 11.5-15.5 [facility] Lymphocytes (Bld) [#/Vol] 1.88 10*3/uL Normal 1.00-4.00 [facility] Lymphocytes/100 WBC (Bld) 10.8 % Normal [facility] MCH 24.2 pG Low 26.0-34.0 [facility] MCHC (RBC) [Mass/Vol] 32.2 g/dL Normal 30.5-36.0 [facility] MCV (RBC) [Entitic vol] 75.2 fL Low 80.0-100.0 [facility] Monocytes/100 WBC (Bld) 4.2 % Normal [facility] Neutrophils/100 WBC (Bld) 84.9 % Normal [facility] NRBCs 0.0 /100 WBC Normal 0 [facility] Platelet mean volume (Bld) [Entitic vol] 11.4 fL Normal 9.0-12.7 [facility] Platelets (Bld) [#/Vol] 345 10*3/uL Normal 150-400 [facility] RBC (Bld) [#/Vol] 4.67 10*6/uL Normal 3.90-5.20 [facility] WBC (Bld) [#/Vol] 17.33 10*3/uL High 3.70-11.[address] [facility] [address] ABD/PEL WO IVCONon 2020 CT ABD/PEL WO IVCON * * *Final Report* * * DATE OF EXAM: Jan 17 2021 8:05PM [facility] 0531 - CT ABD/PEL WO IVCON / PROCEDURE REASON: Mass or lump, abdomen pelvis * * * * Physician Interpretation * * * * CT OF CHEST, ABDOMEN AND PELVIS WITHOUT CONTRAST CLINICAL HISTORY: Aspiration (accession [id number]), Mass or lump, abdomen pelvis (accession [id number]) Concern for possible source of infection vs [...] report for details. Pelvic bones are intact. Tiler'S Assistant (topogram) images: Unremarkable. IMPRESSION: Left upper lobe [...] be communicated with the ordering provider via [employer] staff message or phone message by Imaging Support Services within 2 business days of report finalization. ACTIONABLE RESULT: FOLLOW-UP Acuity: Actionable Findings: Kidneys/Ureters/Bladder /Adrenal Routing Code: GU_1 Recommendation: MRI KIDNEY WO/W IVCON Time Frame: non-urgent, but prompt follow-up. COMMUNICATION: Results will be communicated with the ordering provider via [employer] staff message or phone message by Imaging Support Services within 2 business days of report finalization. Algorithms for management of incidental imaging findings can be found on the [facility] Intranet Sharepoint site at: [email or web address] [email or web address]/ Managing%20Incidental%2 0Findi ngs%20at%20Imaging/Form s/AllItems.aspx Product Management Internship: GUILLE Transcribe Date/Time: Jan 17 2021 8:20P Dictated by : PADILLA JIM MD This examination was interpreted and the report reviewed and electronically signed by: PADILLA JIM MD on Jan 17 2021 8:43PM EST [id number] ACTIONABLE Invalid Interpretation Code [facility] CT BRAIN WO IVCONon 01-18-[address] BRAIN WO IVCON * * *Final Report* * * DATE OF EXAM: Jan 17 2021 4:26PM [facility] 0504 - CT BRAIN WO IVCON [...] base and imaged soft tissues are unremarkable. Tiler'S Assistant (topogram) images: No additional findings. IMPRESSION: No acute intracranial hemorrhage or mass effect is seen Product Management Internship: GUILLE Transcribe Date/Time: Jan 17 2021 4:47P Dictated by : JOHN THAKKAR MD This examination was interpreted and the report reviewed and electronically signed by: JOHN THAKKAR MD on Jan 17 2021 4:48PM EST [id number] [facility] CT CERVICAL SPINE WO IVCONon 01-17-2021 CT CERVICAL SPINE WO IVCON * * *Final Report* * * DATE OF EXAM: Jan 17 2021 4:26PM [facility] 0505 - CT CERVICAL SPINE WO [...] Counting reference: Craniocervical junction. Anatomic Variants: None. Tiler'S Assistant (topogram) images: No additional findings. Alignment: Straightening [...] vertebrae with counting from the craniocervical junction. Product Management Internship: PSCB Transcribe Date/Time: Jan 17 2021 4:49P Dictated by : JOHN THAKKAR MD This examination was interpreted and the report reviewed and electronically signed by: JOHN THAKKAR MD on Jan 17 2021 4:53PM EST [id number] Normal [facility] CT CHEST WO IVCONon 01-18-[address] CHEST WO IVCON * * *Final Report* * * DATE OF EXAM: Jan 17 2021 8:05PM [facility] 0541 - CT CHEST WO IVCON / PROCEDURE REASON: Aspiration * * * * Physician Interpretation * * * * CT OF CHEST, ABDOMEN AND PELVIS WITHOUT CONTRAST CLINICAL HISTORY: Aspiration (accession [id number]), Mass or lump, abdomen pelvis (accession [id number]) Concern for possible source of infection vs [...] report for details. Pelvic bones are intact. Tiler'S Assistant (topogram) images: Unremarkable. IMPRESSION: Left upper lobe [...] be communicated with the ordering provider via [employer] staff message or phone message by Imaging Support Services within 2 business days of report finalization. ACTIONABLE RESULT: FOLLOW-UP Acuity: Actionable Findings: Kidneys/Ureters/Bladder /Adrenal Routing Code: GU_1 Recommendation: MRI KIDNEY WO/W IVCON Time Frame: non-urgent, but prompt follow-up. COMMUNICATION: Results will be communicated with the ordering provider via [employer] staff message or phone message by Imaging Support Services within 2 business days of report finalization. Algorithms for management of incidental imaging findings can be found on the [facility] Intranet Sharepoint site at: [email or web address] [email or web address]/ Managing%20Incidental%2 0Findi ngs%20at%20Imaging/Form s/AllItems.aspx Product Management Internship: GUILLE Transcribe Date/Time: Jan 17 2021 8:20P Dictated by : PADILLA JIM MD This examination was interpreted and the report reviewed and electronically signed by: PADILLA JIM MD on Jan 17 2021 8:43PM EST [id number] ACTIONABLE Invalid Interpretation Code [facility] CT LUMBAR SPINE WO IVCONon 0 01-17-2021 CT LUMBAR SPINE WO IVCON * * *Final Report* * * * * * SEE BOTTOM OF REPORT FOR ADDENDED TEXT * * * DATE OF EXAM: Jan 17 2021 5:34PM [facility] 0508 - CT LUMBAR SPINE WO [...] are 5 lumbar-type vertebrae. Anatomic variant: None. Tiler'S Assistant (topogram) images: No additional findings. Alignment: Alignment [...] on 01/17/2021 6:08 PM via verbal communication. Product Management Internship: GUILLE Transcribe Date/Time: Jan 17 2021 6:05P Dictated by : JOHN THAKKAR MD This examination was interpreted and the report reviewed and electronically signed by: JOHN THAKKAR MD on Jan 17 2021 6:01PM EST This document has been addended by: JOHN THAKKAR MD on Jan 17 2021 6:08PM EST [id number] Normal [facility] CT THORACIC SPINE WO IVCONon 01-17-2021 CT THORACIC SPINE WO IVCON * * *Final Report* * * DATE OF EXAM: Jan 17 2021 5:34PM [facility] 0514 - CT THORACIC SPINE WO [...] the purposes of this report, anatomic variants: Tiler'S Assistant (topogram) images: No additional findings. Alignment: Alignment [...] and assume there are 5 lumbar-type vertebrae. Product Management Internship: GUILLE Transcribe Date/Time: Jan 17 2021 6:03P Dictated by : JOHN THAKKAR MD This examination was interpreted and the report reviewed and electronically signed by: JOHN THAKKAR MD on Jan 17 2021 6:13PM EST [id number] Normal [facility] Comp Metabolic Panelon 01-17 Albumin [Mass/Vol] 3.0 g/dL Low 3.9-4.9 [facility]ital ALP [Catalytic activity/Vol] 162 U/L High 34-123 [facility] ALT [Catalytic activity/Vol] 7 U/L Normal 7-38 [facility] Anion gap [Moles/Vol] 17 mmol/L Normal 9-18 [facility] AST [Catalytic activity/Vol] 15 U/L Normal 13-35 [facility] Bilirubin [Mass/Vol] 0.4 mg/dL Normal 0.2-1.3 [facility] Calcium [Mass/Vol] 9.6 mg/dL Normal 8.5-10.2 [facility] Chloride [Moles/Vol] 83 mmol/L Low 97-105 [facility] CO2 [Moles/Vol] 20 mmol/L Low 22-30 [facility] Creatinine [Mass/Vol] 2.93 mg/dL High 0.58-0.96 [facility] eGFR- Amer. [address] [facility]ital eGFR-All Other Races 16 . Normal [facility] Comment on above: Result Comment: eGFR (Estimated [...] GFR. Glucose [Mass/Vol] 216 mg/dL High 74-99 [facility] Comment on above: Result Comment: The [place] [employer] Association (ADA) provides guidance for cutoff [...] Standards of Medical Care in Diabetes 2016, [place] [employer]. Diabetes Care. 2016.39(Suppl 1). Potassium [Moles/Vol] 5.5 mmol/L High 3.7-5.1 [facility] Protein [Mass/Vol] 9.5 g/dL High 6.3-8.0 [facility] Sodium [Moles/Vol] 120 mmol/L Low 136-144 [facility] Comment on above: Result Comment: Resu lt checked and verified Urea nitrogen [Mass/Vol] 104 mg/dL High 7-21 [facility] ED NOTEon 01-17-2021 ED NOTE HNO ID: [id number] Author: Prerna Luke RN Service: ? Author Type: Registered Nurse Type: ED Notes Filed: 01/17/2021 9:32 PM Note Text: Report called to 4E RN. Patient stable for transport at this time. Normal [facility] ED NOTE HNO ID: [id number] Author: Prerna Luke RN Service: ? Author Type: Registered Nurse Type: ED Notes Filed: 01/17/2021 9:20 PM Note Text: 16Fr chaves inserted with 500 cc urine immediately drained. Patient tolerated well. [facility] ED NOTE HNO ID: [id number] Author: Prerna Luke RN Service: ? Author Type: Registered Nurse Type: ED Notes Filed: 01/17/2021 7:22 PM Note Text: BC obtained by lab. ABX infusing at this time. [facility] ED NOTE HNO ID: [id number] Author: Prerna Luke RN Service: ? Author Type: Registered Nurse Type: ED Notes Filed: 01/17/2021 7:06 PM Note Text: This RN and 2 medics unable to straight stick patient for blood or draw from existing IVs. Lab will draw one set of BC; GIANNI Tucker notified that only one set will be obtained. [facility] ED NOTE HNO ID: [id number] Author: Prerna Luke RN Service: ? Author Type: Registered Nurse Type: ED Notes Filed: 01/17/2021 4:25 PM Note Text: XR at bedside [facility] ED NOTE HNO ID: [id number] Author: Prerna Luke RN Service: ? Author Type: Registered Nurse Type: ED Notes Filed: 01/17/2021 4:03 PM Note Text: covid swab obtained and walked to lab. [facility] ED NOTE HNO ID: [id number] Author: Bharat Patterson RN Service: ? Author [...] time Reports oral intake has been poor [facility] ED PROV NOTEon 01-17-2021 ED PROV NOTE HNO ID: [id number] Author: Garrett Simon PA-C Service: Emergency Medicine Author Type: Physician [employer] Supervisor Type: ED Provider Notes Filed: 01/17/2021 9:27 PM Note Text: Attestation signed by Cory Crawley III, MD at 01/18/2021 12:06 PM Attending Note I have personally performed a face to face assessment of the patient and have reviewed the PA/JUNIOR SOFTWARE DEVELOPER note. My miller findings include: This is [...] significant midlin (more content not included)... Normal [facility] HISTORY PHYSICALon HISTORY PHYSICAL HNO ID: [id number] Author: Trevor Porras MD Service: Hospital Medicine Author Type: Physician Type: HANDP Filed: 01/17/2021 10:12 PM Note Text: DEPARTMENT OF HOSPITAL MEDICINE HISTORY AND PHYSICAL EXAM SERVICE DATE: 01/17/2021 Code Status: Not on file SERVICE TIME: 10:00 PM Primary Care Physician: No Pcp NIGHT AND WEEKEND COVERAGE: [place] COVERAGE: Days: [phone], please contact via [employer] Nights: [phone], please page CC Hospitalist Night coverage pager [phone] Subjective CHIEF COMPLAINT: Generalized weakness, falls HPI: [...] Most recen (more content not included)... Normal [facility] Intermed Rapid COVIDon 01-17 SARS-CoV-2 (COVID-19) RNA ADRIEL+probe Ql (Unsp spec) UPPER RESPIRATORY TRACT SWAB Normal [facility] Comment on above: Performed By: #### I TCOVD ####[facility] [address] [place], [place] [phone] SARS-CoV-2 (COVID-19) RNA ADRIEL+probe Ql (Unsp spec) Negative for COVID19 (SARS CoV2) by RT-PCR or equivalent method. Normal Negative for COVID19 (SARS CoV2) by RT-PCR or equivalent method. [facility] Comment on above: Result Comment: This test was developed and its performance characteristics determined by [facility]'s [facility] [place]. This test has been authorized by FDA [...] Test performed by [facility], [facility] [place], [address], [place] [address]. Performed By: #### I TCOVD ####[facility], [place] [phone] Magnesiumon 01-17-2021 Magnesium [Mass/Vol] 2.0 mg/dL Normal 1.7-2.3 [facility] NT Pro BNPon 01-17-2021 PRO B Natr Peptide 394 pg/mL High <125 [facility] Sed Rate Westergrenon 2020 Sed Rate Westergren 124 mm/hr High 0-20 [facility] Comment on above: Performed By: #### W SR ####[place] [address], [place] [phone] TSHon 01-17-2021 TSH Qn 0.615 m[IU]/L Normal 0.270-4.200 [facility] Troponin Ton 01-17-2021 Troponin T.cardiac [Mass/Vol] 0.023 ug/L Normal 0.000-0.029 [facility] Urinalysis with Microscopico n 01-17-2021 Bacteria Present Critically abnormal 0 [facility] Bilirubin, Urine Negative Normal Negative [facility] pital Cast SEE COMMENT Normal 0 [facility] Comment on above: Result Comment: 0 Clarity (U) Turbid Critically abnormal Clear [facility] Color (U) Yellow Normal Yellow [facility] Glucose Ql (U) Negative Normal Negative [facility] Hemoglobin/Blood,Ur 2+ Critically abnormal Negative [facility] Ketones Ql (U) Negative Normal Negative [facility] Leukest 3+ Critically abnormal Negative [facility] Nitrite Ql (U) Positive Critically abnormal Negative [facility] pH (U) 8.5 [pH] High 5.0-8.0 [facility] Protein, Urine 2+ Critically abnormal Negative [facility] RBC 3-5 Critically abnormal 0-3 [facility] Specific [place], Ur 1.013 Normal 1.005-1.030 [facility] Urobilinogen Qn (U) 0.2 {Madeleine'U}/dL Normal 0.2-1.0 [facility] WBC (U) [#/Vol] /uL Critically abnormal 0-5 [facility] Urine Cultureon 01-17-2021 Bacteria identified Cx Nom [...] F Ertapenem SUSCEPTIBLE <=0.5 F Critically abnormal [facility] Comment on above: Performed By: #### U RCUL ####[facility] [address], [place] [phone] XR CHEST 1V FRONTAL PORTon 0 01-17-2021 [...] exam with no evidence of acute disease. Product Management Internship: PSCB Transcribe Date/Time: Jan 17 2021 4:40P Dictated by : FLASH WOODS MD This examination was interpreted and the report reviewed and electronically signed by: FLASH WOODS MD on Jan 17 2021 4:41PM EST [id number] Normal [facility] Vital Signs Date Time Vital Sign Value Performing Clinician Facility 03-26-2024 10:48-0400 Body mass index (BMI) [Ratio] 24.41 kg/m2 Carmenza Nolen MD Work Phone: [facility] 03-26-2024 10:48-0400 Body weight 56.7 kg Carmenza Nolen MD Work Phone: [facility] Comment on above: VERBAL 01-12-2024 13:50-0400 Diastolic blood pressure 69 mm[Hg] Taurus Ballard MD Work Phone: [facility] 01-12-2024 13:50-0400 Heart rate 75 /min Taurus Ballard MD Work Phone: [facility] 01-12-2024 13:50-0400 Systolic blood pressure 142 mm[Hg] Taurus Ballard MD Work Phone: [facility] 10-25-2023 15:12-0500 Blood Pressure Location [facility]IDY [facility] 10-25-2023 15:12-0500 Body temperature 96.8 [degF] HEIDY ARN[facility] 10-25-2023 15:12-0500 Diastolic blood pressure 78 mm[Hg] HEIDY ARNOLD [facility] 10-25-2023 15:12-0500 Heart rate 86 /min HEIDY ARNOLD [facility] 10-25-2023 15:12-0500 Systolic blood pressure 122 mm[Hg] HEIDY ARNOLD [facility] 08-01-2023 15:00-0500 Body height 154.94 cm [facility] 06-08-2023 13:00-0400 Body height 154.94 cm Tondra Mapus Other [facility] Other 06-08-2023 13:00-0400 Body mass index (BMI) [Ratio] 25.37 kg/m2 Tondra Mapus Other [facility] Other 06-08-2023 13:00-0400 Body weight 60.92 kg Tondra Mapus Other [facility] Other 06-08-2023 13:00-0400 Diastolic blood pressure 66 mm[Hg] Tondra Mapus Other [facility] Other 06-08-2023 13:00-0400 Respiratory rate 18 /min Tondra Mapus Other [facility] Other 06-08-2023 13:00-0400 SaO2% (BldA) [Mass fraction] 100 % Tondra Mapus Other [facility] Other 06-08-2023 13:00-0400 Systolic blood pressure 107 mm[Hg] Tondra Mapus Other [facility] Other 05-18-2023 11:00-0400 Body height 154.94 cm Tondra Mapus Other [facility] Other 05-18-2023 11:00-0400 Body mass index (BMI) [Ratio] 24.69 kg/m2 Tondra Mapus Other [facility] Other 05-18-2023 11:00-0400 Body weight 59.29 kg Tondra Mapus Other [facility] Other 05-18-2023 11:00-0400 Diastolic blood pressure 96 mm[Hg] Tondra Mapus Other [facility] Other 05-18-2023 11:00-0400 Respiratory rate 18 /min Tondra Mapus Other [facility] Other 05-18-2023 11:00-0400 SaO2% (BldA) [Mass fraction] 97 % Tondra Mapus Other [facility] Other 05-18-2023 11:00-0400 Systolic blood pressure 161 mm[Hg] Tondra Mapus Other [facility] Other 02-22-2023 08:34-0400 Blood Pressure Location Lisa Lue [facility] 02-22-2023 08:34-0400 Diastolic blood pressure 66 mm[Hg] Lisa Lue [facility] 02-22-2023 08:34-0400 Heart rate 76 /min Lisa Lue [facility] 02-22-2023 08:34-0400 Systolic blood pressure 106 mm[Hg] Lisa Lue [facility] 12-27-2022 16:00-0400 Body height 154.94 cm Eli Mendenhalls Other [facility] Other 12-27-2022 16:00-0400 Body mass index (BMI) [Ratio] 26.11 kg/m2 Azyanet Mendenhalls Other [facility] Other 12-27-2022 16:00-0400 Body temperature 96.5 [degF] Eli [facility]enhalls Other [facility] Other 12-27-2022 16:00-0400 Body weight 62.69 kg Eli Mendenhalls Other [facility] Other 12-27-2022 16:00-0400 Diastolic blood pressure 98 mm[Hg] Eli Mendenhalls Other [facility] Other 12-27-2022 16:00-0400 Respiratory rate 18 /min Eli Mendenhalls Other [facility] Other 12-27-2022 16:00-0400 SaO2% (BldA) [Mass fraction] 98 % Eli Mendenhalls Other [facility] Other 12-27-2022 16:00-0400 Systolic blood pressure 151 mm[Hg] Azyanet Zas Other [facility] Other 09-21-2022 08:42-0500 Blood Pressure Location Lisa Lue [facility] 09-21-2022 08:42-0500 Diastolic blood pressure 67 mm[Hg] Lisa Lue [facility] 09-21-2022 08:42-0500 Heart rate 74 /min Lisa Lue [facility] 09-21-2022 08:42-0500 Systolic blood pressure 103 mm[Hg] Lisa Lue [facility] Encounters Encounter Date Encounter Type Care Provider Facility Start: 04-24-2024 End: 04-24-2024 ambulatory SWETA LI [facility] Start: 04-16-2024 End: 04-16-2024 ambulatory AGUSTO OLMSTEAD Not Available Start: 04-15-2024 End: 04-15-2024 ambulatory Chioma Durán [facility] Start: 04-09-2024 End: 04-09-2024 ambulatory CARMENZA NOLEN Facility:[facility] Start: 04-09-2024 End: 04-09-2024 Patient [...] Start: 03-29-2024 End: 03-29-2024 ambulatory TAURUS BALLARD Facility:[facility] Start: 03-27-2024 ambulatory Nuria garrett APRN.CNP Work Phone: Pulmonary Medicine Start: 03-26-2024 End: 03-26-2024 ambulatory CARMENZA NOLEN Facility:[facility] Start: 03-26-2024 End: 03-26-2024 Patient encounter procedure Carmenza Nolen MD Work Phone: Urology Comment on above: Retention of urine ( Primary Dx); Screening for genitourinary condition; Type 2 diabetes mellitus with hyperglycemia, with long-term current use of insulin (HCC); BURKE (stress urinary incontinence, female) Start: 03-16-2024 End: 03-16-2024 ambulatory JYOTHI Orellana CAT [facility] Start: 03-15-2024 End: 03-15-2024 ambulatory ZACKERY HUGHESAN [facility] Start: 02-26-2024 Telephone encounter Flavio Coon RN [facility] Start: 02-12-2024 Telephone encounter Vonnie Wilder RN [facility] Comment on above: Results - Ct Start: 02-01-2024 End: 02-01-2024 ambulatory [facility] Facility:[facility] Start: 01-24-2024 End: 01-24-2024 ambulatory [facility] Start: 01-17-2024 End: 01-17-2024 ambulatory AGUSTO AICHHOLZ Not Available Start: 01-12-2024 End: 01-12-2024 Patient encounter procedure Taurus Ballard MD Work Phone: Urology Comment on above: Other hydronephrosis (Primary Dx); Screening for genitourinary condition Start: 01-12-2024 End: 01-12-2024 [facility] Start: 12-21-2023 End: 12-21-2023 ambulatory AGUSTO AICHHOLZ Not Available Start: 12-13-2023 End: 12-13-2023 ambulatory [facility] Start: 11-16-2023 End: 11-16-2023 ambulatory AGUSTO AICHHOLZ Not Available Start: 11-06-2023 Refill Asia Barreto RN [facility] Comment on [...] [facility] Start: 10-14-2023 End: 10-14-2023 ambulatory [facility] Start: 10-13-2023 End: 10-13-2023 ambulatory [facility] Start: 10-11-2023 End: 10-11-2023 ambulatory AGUSTO MARIBEL Not Available Start: 10-10-2023 Refill Agusto Gray PHOTOGRAPHER ASSISTANT [facility] Comment on above: 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; Complex regional pain syndrome type 1 of right upper extremity Start: 09-29-2023 End: 09-29-2023 ambulatory [facility] Start: 09-29-2023 End: 09-29-2023 ambulatory Drew Esqueda Research Coordinator [facility] Provider Adult Comment on above: CHRISTOPHER IRB# [id number] Start: 09-28-2023 E-mail encounter fro m caregiver Drew Esqueda Research Coordinator [facility] Start: 09-27-2023 Telephone encounter Drew bourne [...] Haroldo Start: 09-07-2023 Refill Yesenia Burnett RN [facility] Comment on above: 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 Start: 09-05-2023 End: 09-05-2023 ambulatory Tondra Mapus Other [facility] Other Start: 09-05-2023 Telephone encounter Tondra Mapus [facility] Start: 08-09-2023 End: 08-09-2023 ambulatory [facility] Start: 08-09-2023 End: 08-09-2023 ambulatory [facility] Start: 08-01-2023 End: 08-01-2023 Patient encounter procedure [facility] Nephrology Michael Work Phone: Start: 07-18-2023 End: [...] 06-26-2023 End: 06-26-2023 ambulatory Tondra Mapus Other [facility] Other Start: 06-26-2023 Telephone encounter Tona Mapus [facility] Start: 06-23-2023 Telephone encounter Heidy harris RN Urology Comment on above: Surgical Followup Start: 06-22-2023 End: 06-23-2023 ambulatory TAURUS BALLARD Facility:[facility] Start: 06-19-2023 ambulatory Taurus newton MD Work Phone: Urology Comment on above: Aislinn alvarez procedure Start: 06-15-2023 Telephone encounter Vonnie seamanogteresa Comment on above: Pre-Op Teaching Start: 06-12-2023 End: 06-12-2023 ambulatory Tondra Mapus Other [facility] [employer] Other Start: 06-12-2023 Telephone encounter Tondra Mapus [facility] Start: 06-08-2023 End: 06-08-2023 Lab Drop off HEIDY Jennifer ARNOLD [facility] Start: 06-08-2023 End: 06-08-2023 Patient encounter procedure AGUSTO OLMSTEAD [facility] Start: 06-08-2023 (PUMP/CGM) Pump / Sensor Tondra Mapus [facility] Start: 06-08-2023 End: 06-09-2023 ambulatory Sum[facility] [employer] Other Start: 06-06-2023 Encounter for other preprocedural examination TAURUS BALLARD [facility] Start: 06-06-2023 End: 06-06-2023 ambulatory TAURUS BALLARD Facility:[facility] Start: 05-22-2023 End: 05-23-2023 ambulatory Lisa Porras Facility:[facility] Start: 05-22-2023 End: 05-22-2023 Patient encounter procedure Lisa Porras [facility] Start: 05-18-2023 End: 05-18-2023 ambulatory Tondra Mapus Other [facility] Other Start: 05-18-2023 FQ visit new patient Sara Augustine [facility] Start: 05-18-2023 Telephone encounter Taurus rees MD Work Phone: Urology Comment on above: Follow Up Start: 05-17-2023 End: 05-17-2023 ambulatory TAURUS BALLARD Facility:[facility] Start: 05-11-2023 End: 2023 ambulatory PA-C HEIDY ARNOLD Facility:[facility] Start: 05-11-2023 End: 05-11-2023 Lab Drop off HEIDY ARNOLD [facility] Start: 05-03-2023 End: 05-04-2023 ambulatory [facility] Sharife [facility] Start: 04-18-2023 End: 04-19-2023 ambulatory PA-C HEIDY ARNOLD Facility:[facility] Start: 04-18-2023 End: 04-19-2023 ambulatory Lisa MIrina Lue [facility] Start: 04-18-2023 End: 04-18-2023 Lab Drop off HEIDY ARNOLD [facility] Start: 04-18-2023 End: 04-18-2023 Patient encounter procedure Lisa Porras [facility] Start: 04-04-2023 End: 04-04-2023 ambulatory Brigette Wesley Other [facility] Other Start: 04-04-2023 Telephone encounter Brigette Wesley [facility] Start: 02-22-2023 End: 02-23-2023 ambulatory Lisa M. Lue Facility[facility] Start: 02-22-2023 End: 02-22-2023 Patient encounter procedure Lisa Porras [facility] Start: 01-09-2023 End: 01-09-2023 ambulatory Azyanet Mendenhalls Other [facility] Other Start: 01-09-2023 Telephone encounter Eli Mendenhalls [facility] Start: 01-03-2023 End: 01-04-2023 ambulatory WEBSPHERE ARCHITECT AGUSTO AICHHOLZ Facility:[facility] Start: 12-28-2022 End: 12-29-2022 ambulatory WEBSPHERE ARCHITECT AGUSTO AICHHOLZ Facility:[facility] Start: 12-27-2022 End: 12-27-2022 ambulatory Azyanet Mendenhalls Other [facility] Other Start: 12-27-2022 Office outpatient ne w 30 minutes Azyanet Mendenhalls [facility] Start: 12-15-2022 End: 12-16-2022 ambulatory WEBSPHERE ARCHITECT AGUSTO AICHHOLZ Facility:[facility] Start: 12-14-2022 End: 12-15-2022 ambulatory PETER D WILLYANDER Facility:[facility] Start: 10-27-2022 End: 10-28-2022 ambulatory WEBSPHERE ARCHITECT AGUSTO AICHHOLZ Facility:[facility] Start: 10-24-2022 End: 10-25-2022 ambulatory WEBSPHERE ARCHITECT AGUSTO AICHHOLZ Facility:[facility] Start: 10-12-2022 End: 10-13-2022 ambulatory WEBSPHERE ARCHITECT AGUSTO AICHHOLZ Facility:[facility] Start: 10-05-2022 End: 10-06-2022 ambulatory WEBSPHERE ARCHITECT AGUSTO AICHHOLZ Facility:[facility] Start: 09-29-2022 End: 09-30-2022 ambulatory WEBSPHERE ARCHITECT AGUSTO AICHHOLZ Facility:[facility] Start: 09-21-2022 End: 09-22-2022 ambulatory PETER D HIGHLANDER Facility:[facility] Start: 09-21-2022 End: 09-21-2022 Patient encounter procedure Lisa Porras [facility] Start: 09-15-2022 End: 09-16-2022 ambulatory WEBSPHERE ARCHITECT AGUSTO AICHHOLZ Facility:[facility] Start: 09-13-2022 End: 09-13-2022 Patient encounter procedure HEIDY ARNOLD [facility] Start: 09-08-2022 End: 09-09-2022 ambulatory WEBSPHERE ARCHITECT AGUSTO AICHHOLZ Facility:[facility] Start: 09-02-2022 End: 09-03-2022 ambulatory PETER D HIGHLANDER Facility:[facility] Start: 08-26-2022 End: 08-27-2022 [facility] Start: 08-09-2022 End: 08-10-2022 [facility]ulatory [facility] Start: 08-05-2022 End: 08-06-2022 ambulatory [facility] Start: 08-04-2022 End: 08-05-2022 ambulatory PETER D HIGHLANDER Facility:[facility] Start: 08-03-2022 End: 08-04-2022 ambulatory WEBSPHERE ARCHITECT AGUSTO AICHHOLZ Facility:[facility] Start: 08-02-2022 End: 08-03-2022 ambulatory WEBSPHERE ARCHITECT AGUSTO AICHHOLZ Facility:[facility] Start: 08-01-2022 End: 08-02-2022 ambulatory WEBSPHERE ARCHITECT AGUSTO AICHHOLZ Facility:[facility] Start: 07-19-2022 End: 07-20-2022 ambulatory WEBSPHERE ARCHITECT AGUSTO AICHHOLZ Facility:[facility] Start: 07-08-2022 End: 07-09-2022 ambulatory WEBSPHERE ARCHITECT AGUSTO AICHHOLZ Facility:[facility] Start: 07-06-2022 End: 07-07-2022 ambulatory WEBSPHERE ARCHITECT AGUSTO AICHHOLZ Facility:[facility] Start: 07-05-2022 End: 07-06-2022 ambulatory PETER D HIGHLANDER Facility:[facility] Start: 06-28-2022 End: 06-29-2022 ambulatory [facility] Start: 06-24-2022 End: 06-25-2022 ambulatory RAMON D 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 Lisa Porras Start: 06-16-2022 Microscopic examinat ion of blood, culture KIARA OLMSTEAD Comment on above: Performed By: #### B [id number] ####[facility] [id number] [place] [address]DrIrina Ricardo Aj Start: 06-13-2022 Detachment at Left F oot, Partial 1st Ray, Open Approach KIARA OLMSTEAD Start: 06-13-2022 Microscopic examinat ion of blood, culture KIARA OLMSTEAD Comment on above: Performed By: #### B [id number] ####[facility] [id number] [place], [place] [address]MgIrina Rocha Start: 06-11-2022 Detachment at Left 1 [...] 04-28-2026 Screening for malignant neoplasm of colon [facility] Start: 01-31-2025 Creatinine measurement Serum Creatinine [facility] Start: 10-13-2024 Tobacco Screening Tobacco Screening [facility] Start: 09-29-2024 Tobacco Screening Tobacco Screening [facility] Start: 09-03-2024 Complete blood count Hemoglobin/Hematocrit [facility] Start: 09-03-2024 Creatinine measurement Serum Creatinine [facility] Start: 08-09-2024 Adult BMI Screening Adult BMI Screening [facility] Start: 08-09-2024 Tobacco Screening Tobacco Screening [facility] Start: 06-23-2024 Hemoglobin/Hematocrit Hemoglobin/Hematocrit [facility] Start: 06-23-2024 Serum Creatinine Serum Creatinine [facility] Start: 06-06-2024 Hemoglobin/Hematocrit Hemoglobin/Hematocrit [facility] Start: 06-06-2024 Serum Creatinine Serum Creatinine [facility] Start: 05-01-2024 End: 05-01-2024 Patient encounter procedure 05/01/2024 10:00 AM EDT Office Visit Urology [address] [address] Mirna Sunshine MD [address] [place], [place] [id number] discuss bladder augment per Dr. Nolen Urology Comment on above: discuss bladder augment per Dr. Nolen Start: 04-21-2024 Influenza vaccination [facility] Start: 04-09-2024 End: 04-09-2024 Follow-up encounter 04/09/2024 9:30 AM EDT [facility] [id number] [place] [id number] Carmenza Nolen MD [address] [place] [address] 1 week follow up per dr. nolen Urology Comment on above: 1 week follow up per dr. nolen Start: 04-04-2024 Hepatitis B screening Urine Albumin:Creatinine Ratio [facility] Start: 03-29-2024 End: 03-29-2024 Nursing evaluation of patient and report 03/29/2024 3:00 PM EDT Nurse Visit Urology [address] [address] [employer] [address] [place] [id number] [R33.9] Retention of urine Urology Comment on above: [R33.9] Retention of urine Start: 03-26-2024 End: 03-26-2024 Patient encounter procedure 03/26/2024 11:00 AM EDT Office Visit Urology [address] [place] [address] Carmenza Nolen MD [address] [place] [address] Ballard Urology Comment on above: Follow up per Dr. 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 [facility] Comment on above: Continuous leakage of Urine Start: 01-22-2024 DIABETES SCREEN DIABETES SCREEN [facility] Start: 01-19-2024 End: 04-19-2024 CREATININE BLD CREATININE BLD Lab Routine Other hydronephrosis Expected: 01/19/2024 (Approximate), Expires: 04/19/2024 [facility] Comment on above: Expected: 01/19/2024 (Approximate), Expi res: 04/19/2024 Start: 01-19-2024 End: 02-10-2025 CT Kidney WO and W contrast IV CT UROGRAM WO/W IVCON Radiology Routine Other hydronephrosis Expected: 01/19/2024 (Approximate), Expires: 02/10/2025 [facility] Work Phone: Comment on above: Expected: 01/19/2024 (Approximate), Expi res: 02/10/2025 Start: 11-22-2023 End: 11-22-2023 Patient encounter procedure 11/22/2023 11:15 AM EDT Office Visit [facility] [address] [place] [phone] Sweta Li, PA-C [address], [address] [place] [address] [facility] Start: 10-25-2023 End: 10-25-2023 Patient encounter procedure 10/25/2023 12:45 PM EST Office Visit [facility] [address] [place] [phone] Sweta Li, PA-C [address] [place], [place] [phone] [facility] Start: 10-13-2023 End: 10-13-2023 Njx anes stellate ganglion crv sympathetic INJECTION BLOCK NERVE STELLATE GANGLION NECK Complex regional pain syndrome type 1 of right upper extremity 10/13/2023 12:44 PM EST [facility] Start: 10-13-2023 End: 10-13-2023 Patient encounter procedure 10/13/2023 9:55 AM EST Appointment [facility] [address] [place] [id number] Zackery Pedro MD [address] [place] [address] [facility] Start: 10-05-2023 End: 01-04-2024 Basic metabolic 2000 panel - Serum or Plasma BASIC METABOLIC PNL Lab Routine Kidney cyst, acquired Expected: 10/05/2023 (Approximate), Expires: 01/04/2024 [facility] Work Phone: Comment on above: Expected: 10/05/2023 (Approximate), Expi res: 01/04/2024 Start: 10-05-2023 End: 08-03-2024 US KIDNEY/BLADDER US KIDNEY/BLADDER Radiology Routine Kidney cyst, acquired Expected: 10/05/2023 (Approximate), Expires: 08/03/2024 [facility] Work Phone: Comment on above: Expected: 10/05/2023 (Approximate), Expi res: 08/03/2024 Start: 09-06-2023 Hemoglobin A1c measurement HbA1C [facility] Start: 09-06-2023 Hemoglobin A1c/Hemoglobin.total in Blood HbA1C [facility] Start: 08-21-2023 Advance Directive Discussion Advance Directive Discussion [facility] Start: 08-21-2023 Behavioral Health Screening Behavioral Health Screening [facility] Start: 08-21-2023 Depression Assessment Depression Assessment [facility] Start: 2023 Advance Directive Discussion Advance Directive Discussion [facility] Start: 2023 Bone Density Screening Bone Density Screening [facility] Start: 2023 Fall Risk Screening Fall Risk Screening [facility] Start: 2023 Screening for osteoporosis Bone Density Screening [facility] Start: 04-21-2023 Covid-19 Vaccine () Covid-19 Vaccine () [facility] Start: 04-21-2023 Covid-19 Vaccine ( season) Covid-19 Vaccine ( season) [facility] Start: 04-21-2023 Influenza vaccination [facility] Start: 08-21-2022 Depression Assessment Depression Assessment [facility] Start: 04-21-2021 Influenza vaccination [facility] ([facility] Ended) [facility] Start: 2018 Hepatitis B Vaccine (1 of 3 - Risk 3-dose series) Hepatitis B Vaccine (1 of 3 - Risk 3-dose series) [facility] Start: 2018 RSV Vaccine (1 - 1-dose 60+ series) RSV Vaccine (1 - 1-dose 60+ series) [facility] Start: 2008 Administration of varicella zoster vaccine Zoster (Shingles) Vaccine (1 of 2) [facility] Start: 2008 Screening for malignant neoplasm of colon [facility] Start: 2008 SHINGRIX VACCINE (1 of 2) SHINGRIX VACCINE (1 of 2) [facility] Start: 2003 Cologuard (FIT-DNA) Cologuard (FIT-DNA) [facility] Start: 2003 Colonoscopy Colonoscopy [facility] Start: 2003 Colorectal Cancer Screening Colorectal Cancer Screening [facility] Start: [address] Colonography [facility] Start: 2003 Fecal Occult Blood Fecal Occult Blood [facility] Start: 2003 LIPID SCREEN LIPID SCREEN [facility] Start: 2003 Screening for malignant neoplasm of colon [facility] Start: 2003 Sigmoidoscopy Sigmoidoscopy [facility] Start: 1998 Mammography [facility] Start: 1998 Screening for malignant neoplasm of breast Mammogram Screening [facility] Start: 1988 HPV TESTING HPV TESTING [facility] Start: 1979 PAP TESTING PAP TESTING [facility] Start: 1977 DTaP,Tdap and Td Vaccines (1 - Tdap) DTaP,Tdap and Td Vaccines (1 - Tdap) [facility] Start: 1977 Urine microalbumin profile [facility] Start: 1976 Annual PCP Team Chronic Disease Visit Annual PCP Team Chronic Disease Visit [facility] Start: 1976 Anxiety Screening Anxiety Screening [facility] Start: 1976 BP Controlled (<130/80) BP Controlled (<130/80) [facility] Start: 1976 Depression Screening Depression Screening [facility] Start: 1976 Diabetic foot examination Diabetic Foot Exam [facility] Start: 1976 Hepatitis B surface antibody level LDL Cholesterol [facility] Start: 1976 HEPATITIS C SCREENING HEPATITIS C SCREENING [facility] Start: 1976 Hepatitis C screening Hepatitis C Screening [facility] Start: 1976 HIV SCREENING HIV SCREENING [facility] Start: 1976 HIV screening HIV Screening [facility] Start: 1976 Spirometry Spirometry [facility] Start: 1970 Adult depression screening assessment DEPRESSION SCREENING [facility] Start: 1970 COVID-19 VACCINE (1) COVID-19 VACCINE (1) [facility] Start: 1968 3 comp foot exam completed Diabetic Foot Exam [facility] Start: 1968 Diabetic foot examination Diabetic Foot Exam [facility] Start: 1968 Glaucoma screening Dilated Retinal Exam [facility] Start: 1968 Hepatitis B screening Urine Albumin:Creatinine Ratio [facility] Start: 1968 Hepatitis C antibody, confirmatory test Dilated Retinal Exam [facility] Start: 1964 Pneumococcal Vaccine: 65+ (1 - PCV) Pneumococcal Vaccine: 65+ (1 - PCV) [facility] Start: 1964 Pneumococcal Vaccine: 65+ (1 of 2 - PCV) Pneumococcal Vaccine: 65+ (1 of 2 - PCV) [facility] Start: 1958 Glaucoma screening Diabetic Ophthalmology Exam [facility] Start: 1958 Urine screening for protein Urine Microalbumin [facility] FLUROURODYNAMICS WITH EMG FLUROU RODYNAMICS WITH EMG Procedures Routine Retention of urine BURKE (stress urinary incontinence, female) Ordered: 03/26/2024 [facility] Work Phone: Comment on above: Ordered: 03/26/2024 Njx anes stellate ganglion crv sympathetic INJECTION BLOCK NERVE STELLATE GANGLION NECK Complex regional pain syndrome type 1 of right upper extremity [facility] Njx anes stellate ganglion crv sympathetic INJECTION BLOCK NERVE STELLATE GANGLION NECK Complex regional pain syndrome type 1 of right upper extremity [facility] Immunizations Immunization Date Immunization Notes Care Provider Lukas pacheco 04-02-2021 SARS-CoV-2 (COVID-19 ) mRNA-1273 vaccine HEIDY ARNOLD [facility] 12-07-2020 SARS-CoV-2 (COVID-19 ) mRNA-1273 vaccine HEIDY ARNOLD [facility] 06-03-2016 influenza virus vaccine, unspecified formulation HEIDY ARNOLD [facility] 06-03-2016 influenza, seasonal, injectable, preservative free Drew Esqueda Research Coordinator [facility] Payers Date Payer Category Payer Private Health Insurance [id number] 2023 Self-pay 2022 Medicare [id number] 2022 Medicare [id number] 2006 Medicare MEDICARE MEDICAR E A [id number] 2006-Present [place] Medicare [id number] 2003 Unknown [id number] 1959 Medicare [id number] 1959 Unknown [id number] 1959 Unknown [id number] 1958 Unknown [id number] 2.16.840.1.211994.3.579.2 .593 1958 Unknown [id number] 2.16.840.1.180703.3.579.2 .593 1958 Unknown [id number] 2.16.840.1.515628.3.579.2 .593 1958 Unknown [id number] 2.16.840.1.617705.3.579.2 .593 1958 Unknown [id number] 2.16.840.1.602135.3.579.2 .593 1958 Unknown [id number] 2.16.840.1.357769.3.579.2 .593 1958 Unknown [id number] 2.16.840.1.243103.3.579.2 .593 1958 Unknown [id number] 2.16.840.1.595522.3.579.2 .593 1958 Unknown [id number] 2.16.840.1.754841.3.579.2 .593 1958 Unknown [id number] 2.16.840.1.033388.3.579.2 .593 1958 Unknown [id number] 2.16.840.1.260172.3.579.2 .593 1958 Unknown [id number] 2.16.840.1.362168.3.579.2 .593 1958 Unknown [id number] 2.16.840.1.893033.3.579.2 .593 1958 Unknown [id number] 2.16.840.1.030531.3.579.2 .593 1958 Unknown [id number] 2.16.840.1.148561.3.579.2 .593 1958 Unknown [id number] 2.16.840.1.159581.3.579.2 .593 1958 Unknown [id number] 2.16.840.1.517351.3.579.2 .593 1958 Unknown [id number] 2.16.840.1.022156.3.579.2 .593 1960 Unknown [id number] 2.16.840.1.417122.3.579.2 .593 1960 Unknown [id number] 2.16.840.1.157447.3.579.2 .593 1958 Unknown [id number] 2.16.840.1.470544.3.579.2 .593 1958 Unknown [id number] 2.16.840.1.978574.3.579.2 .593 1958 Unknown [id number] 2.16.840.1.899337.3.579.2 .593 1958 Unknown [id number] 2.16.840.1.120908.3.579.2 .593 1958 Unknown [id number] 2.16.840.1.593845.3.579.2 .593 1958 Unknown [id number] 2.16.840.1.020165.3.579.2 .593 1958 Unknown [id number] 2.16.840.1.302588.3.579.2 .593 1958 Unknown [id number] 2.16.840.1.095302.3.579.2 .593 1958 Unknown [id number] 2.16.840.1.755172.3.579.2 .593 1958 Unknown [id number] 2.16.840.1.520246.3.579.2 .593 1958 Unknown [id number] 2.16.840.1.645456.3.579.2 .593 1958 Unknown [id number] 2.16.840.1.623220.3.579.2 .727 1958 Unknown [id number] 2.16.840.1.782633.3.579.2 .727 1958 Unknown [id number] 2.16.840.1.883440.3.579.2 .72 1958 Unknown [id number] 2.16.840.1.844534.3.579.2 .1958 Unknown [id number] 2.16.840.1.505181.3.579.2 .1958 Unknown [id number] 2.16.840.1.571635.3.579.2 .1958 Unknown [id number] 2.16.840.1.982801.3.579.2 .1958 Unknown [id number] 2.16.840.1.056908.3.579.2 .1958 Unknown [id number] 2.16.840.1.312861.3.579.2 .1958 Unknown [id number] 2.16.840.1.932480.3.579.2 .1958 Unknown [id number] 2.16.840.1.791240.3.579.2 .1958 Unknown [id number] 2.16.840.1.739627.3.579.2 .1958 Unknown [id number] 2.16.840.1.608214.3.579.2 .1958 Unknown [id number] 2.16.840.1.471876.3.579.2 .1958 Unknown [id number] 2.16.840.1.926478.3.579.2 .1958 Unknown [id number] 2.16.840.1.991828.3.579.2 .1258 1958 Unknown [id number] 2.16.840.1.754247.3.579.2 .1258 1958 Unknown [id number] 2.16.840.1.713110.3.579.2 .1259 1958 Unknown [id number] 2.16.840.1.000420.3.579.2 .1258 1958 Unknown [id number] 2.16.840.1.281310.3.579.2 .9 1958 Unknown [id number] 2.16.840.1.771789.3.579.2 .1285 1958 Unknown [id number] 2.16.840.1.280834.3.579.2 .1285 1958 Unknown [id number] 2.16.840.1.637423.3.579.2 .1285 1958 Unknown [id number] 2.16.840.1.510633.3.579.2 .1285 1958 Unknown [id number] 2.16.840.1.563667.3.579.2 .1285 1958 Unknown [id number] 2.16.840.1.269914.3.579.2 .1285 1958 Unknown [id number] 2.16.840.1.804149.3.579.2 .1285 1958 Unknown [id number] 2.16.840.1.196789.3.579.2 .1285 1958 Unknown [id number] 2.16.840.1.854686.3.579.2 .1285 1958 Unknown [id number] 2.16.840.1.939807.3.579.2 .1285 1958 Unknown [id number] 2.16.840.1.672187.3.579.2 .1285 1958 Unknown [id number] 2.16.840.1.736542.3.579.2 .1285 1958 Unknown [id number] 2.16.840.1.159148.3.579.2 .1286 1958 Unknown [id number] 2.16.840.1.479482.3.579.2 .1286 1960 Unknown [id number] 2.16.840.1.836524.3.579.2 .1286 Medicare [id number] Unknown [facility] [id number] Unknown [id number] 2.16.840.1.521961.3.579.2 .531 Social History Date Type Detail Facility Start: 01-17-2021 End: 05-17-2023 Tobacco smoking status NHIS Never smoker [facility] Start: 01-17-2021 End: 05-17-2023 Tobacco use and exposure Never used [facility] Start: 01-17-2021 End: 04-09-2024 Alcohol intake Current drinker of alcohol (finding) [facility] Start: 01-17-2021 History SDOH Alcohol Frequency 1 [facility] Start: 01-17-2021 Alcohol [facility] Start: 1960 Sex Assigned At Not [facility] Exposure to SARS-CoV -2 (event) Not sure [facility] Tobacco smoking status Never [facility] Start: 05-17-2023 End: 06-06-2023 Sex Assigned At Female [facility] Start: 05-17-2023 End: 06-06-2023 History of Social function [facility] Start: 06-06-2023 Alcohol Comment rarely--holida y or special occ [facility] Start: 08-09-2023 End: 10-13-2023 Alcohol intake Current non-drinker of alcohol (finding) [facility] Are you now , , , , never or living with a partner? [facility] How hard is it for y ou to pay for the very basics like food, housing, medical care, and heating Not very hard [facility] (I/We) worried liss er (my/our) food would run out before (I/we) got money to buy more. DK or Refused [facility] Start: 1960 Sex Assigned At Female F [facility] Functional Status Date Assessment Result Facility 10-25-2023 Functional Status N/A [facility] 05-22-2023 Functional Status N/A [facility] 05-11-2023 Functional Status [facility] 02-22-2023 Functional Status N/A [facility] 09-21-2022 Functional Status N/A [facility] 09-13-2022 Functional Status N/A [facility] Clinical Notes 01-17-2021 to 04-15-2024 Chioma Durán - 04/15/2024 7:28 AM Carmenza Maradiaga MD - 04/09/2024 9:33 AM Chioma Clements - 04/08/2024 9:38 AM Lorie Blanchard RN - 03/29/2024 1:21 PM EDTPatient Instructions Note Date & Type Note Facility 04-15-2024 Note HNO ID: [id number] Author: ?, ?, ? Service: ? Author Type: ? Type: Progress Notes Filed: 04/15/2024 07:29 Note Text: Incidental Lung Nodule Enrollment Outreach attempt: 3rd Attempt Outreach status: Complete Enrolled in Lung Nodule program: No Declined reason: Other Lung Nodule Program Location: [place] Two letter attempts, no response. Discharge letter sent. [facility] 04-15-2024 History of Presen t illness Narrative Incidental Lung Nodule Enrollment Outreach attempt: 3rd Attempt Outreach status: Complete Enrolled in Lung Nodule program: No Declined reason: Other Lung Nodule Program Location: [place] Two letter attempts, no response. Discharge letter sent. documented in this encounter [facility] 04-15-2024 Note Patient Outreach (PU LMMN) LIAMAISLINN PAZE ([id number]) 1960 F Date Time Provider Department 04/15/24 CHIOMA DURÁN During your visit today, we recorded the following information about you: Chioma Durán 04/15/2024 7:29 AM Signed Incidental Lung Nodule Enrollment Outreach attempt: 3rd Attempt Outreach status: Complete Enrolled in Lung Nodule program: No Declined reason: Other Lung Nodule Program Location: [place] Two letter attempts, no response. Discharge letter [...] Text Encounter Status:Closed by DURÁNCHIOMA on 04/15/24 [facility] 04-09-2024 Note HNO ID: [id number] Author: CARMENZA NOLEN MD Service: ? Author [...] bladder with poor compliance and BURKE at LONGTERM of 100ml. Bladder remodeling without VUR. Valsalva [...] visit. Either the patient or their legal risk control representative has been informed of the risks and benefits of -- and alternatives to -- treatment through a remote evaluation and consents to proceed with the evaluation remotely. [facility] 04-09-2024 History of Presen t illness [...] bladder with poor compliance and BURKE at LONGTERM of 100ml. Bladder remodeling without VUR. Valsalva [...] visit. Either the patient or their legal risk control representative has been informed of the risks and benefits of -- and alternatives to -- treatment through a remote evaluation and consents to proceed with the evaluation remotely. documented in this encounter [facility] 04-08-2024 Note HNO ID: [id number] Author: ?, ?, ? Service: ? Author Type: ? Type: Progress Notes Filed: 04/08/2024 09:39 Note Text: Incidental Lung Nodule Enrollment Outreach attempt: 2nd Attempt Outreach status: Complete Enrolled in Lung Nodule program: Referred Lung Nodule outreach: Needs outreach Lung Nodule Program Location: [place] Two letter attempts [facility] 04-08-2024 History of Presen t illness Narrative Incidental Lung Nodule Enrollment Outreach attempt: 2nd Attempt Outreach status: Complete Enrolled in Lung Nodule program: Referred Lung Nodule outreach: Needs outreach Lung Nodule Program Location: [facility] letter attempts documented in this encounter [facility] 04-08-2024 Note Patient Outreach (PU LMMN) AISLINN WHEELER ([id number]) 1960 F Date Time Provider Department 04/08/24 CHIOMA DURÁN During your visit today, we recorded the following information about you: Chioma Durán 04/08/2024 9:39 AM Signed Incidental Lung Nodule Enrollment Outreach attempt: 2nd Attempt Outreach status: Complete Enrolled in Lung Nodule program: Referred Lung Nodule outreach: Needs outreach Lung Nodule Program Location: [place] Two letter attempts Allergies As of Date: [...] Encounter Status:Closed by CHIOMA DURÁN on 04/08/24 [facility] 04-02-2024 Note HNO ID: [id number] Author: CARMENZA NOLEN MD Service: ? Author Type: Physician Type: Progress Notes Filed: 04/02/2024 11:52 Note Text: [facility] FOR F[facility] [...] bladder with poor compliance and BURKE at LONGTERM of 100ml. Bladder remodeling without VUR. Valsalva voiding with atonic detrusor. Will refer to consider bladder augmentation. 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 The bony and soft tissue structures are within normal. 147 ccs contrast were used to fill the bladder. The bladder outline is irregular/trabeculated and abnormal shaped appearing. There is no ureteral reflux. During the voiding phase there is abnormal bladder neck opening and urethra is not visualized. Bladder emptying is not visualized Read by - Carmenza Nolen MD [facility] 03-29-2024 Nurse Note [facility] UR[facility]NAMICS LAB URODYNAMIC [...] allergy: No Females- Is patient : No Pyrotechnic Assembler offered:Patient declines B/O UA: Yes, Negative for [...] Pt states an understanding of instructions given. [facility] 03-29-2024 Nurse Note [facility] UR[facility]NAM[facility] LAB URODYNAMIC [...] allergy: No Females- Is patient : No Pyrotechnic Assembler offered:Patient declines B/O UA: Yes, Negative for [...] of instructions given. documented in this encounter [facility] 03-27-2024 Note HNO ID: [id number] Author: NURIA READ APRN.WEBSPHERE ARCHITECT Service: ? Author Type: Nurse Practitioner Type: Progress Notes Filed: 03/27/2024 14:36 Note Text: Incidental Lung Nodule Enrollment Outreach attempt: 1st Attempt Outreach status: Complete Enrolled in Lung Nodule program: Referred Lung Nodule outreach: Needs outreach Lung Nodule Program Location: [facility] 03-27-2024 History of Presen t illness Narrative Incidental Lung Nodule Enrollment Outreach attempt: 1st Attempt Outreach status: Complete Enrolled in Lung Nodule program: Referred Lung Nodule outreach: Needs outreach Lung Nodule Program Location: [facility] documented in this encounter [facility] 03-27-2024 Note Patient Outreach (PM M211) AISLINN WHEELER ([id number]) 1960 F Date Time Provider Department 03/27/24 NURIA READ [id number] During your visit today, we recorded the following information about you: Nuria Read APRN.CNP 03/27/2024 2:36 PM Signed Incidental Lung Nodule Enrollment Outreach attempt: 1st Attempt Outreach status: Complete Enrolled in Lung Nodule program: Referred Lung Nodule outreach: Needs outreach Lung Nodule Program Location: [facility] N[facility] Allergies As of Date: 03/27/2024 [...] Encounter Status:Closed by NURIA READ on 03/27/24 [facility] 03-26-2024 Instructions Carmenza Nolen MD - 03/26/2024 11:31 AM EDT Images from the original note were not included. INFORMATION ON URODYNAMICS (BLADDER FUNCTION TEST) Getting Ready for the Test You do not have to fast before the test. Begin to drink 24-32 ounces of fluid (water, cranberry juice, milk, herbal tea) 90 minutes prior to the test so you arrive at the [facility] with the urge to empty your [...] your bladder when you arrive at the [facility]. Speak with a nurse if you feel you must empty your bladder. If you are taking antibiotics for a urinary tract infection (UTI) or bladder infection, notify your physician's office immediately. We may reschedule your bladder test. Bring a list of all prescribed and ykbh-vbl-rlkttae medications you are taking. If you should need assistance due to a language barrier or medical needs/condition, please notify the change release manager when making your appointment and one will be provided for you ([phone]). If you are taking overactive bladder medications [...] test is finished. documented in this encounter [facility] 03-26-2024 Note HNO ID: [id number] Author: CARMENZA NOLEN MD Service: ? Author Type: Physician Type: Progress Notes Filed: 03/26/2024 11:54 Note Text: [facility]EM[facility] [...] her bladder. Had bladder botox injections at [facility] about 3 mo ago with no improvement. [...] Assessed 03/26/2024 PHYSICAL EXAM: Patient declined a cardiovascular specialist General: No acute distress, well appearing : [...] and concerns were addressed. Carmenza Nolen MD [facility] 03-26-2024 History of Presen t illness Narrative [facility] [...] her bladder. Had bladder botox injections at [facility] about 3 mo ago with no improvement. [...] Assessed 03/26/2024 PHYSICAL EXAM: Patient declined a cardiovascular specialist General: No acute distress, well appearing : [...] Via bladder scan. documented in this encounter [facility] 03-26-2024 Note HNO ID: [id number] Author: MARIA TERESA JOHNSON MA Service: ? Author Type: Custom Shoemaker Type: Progress Notes Filed: 03/26/2024 11:54 Note Text: Pt voided upon arrival. PVR = 205 ml Via bladder scan. Pt was doing ISC, but was told she could stop. Pt instructed to give a urine specimen. 2ND Repeat PVR PVR = 135 ml Via bladder scan. [facility] 02-26-2024 Telephone encounter Note Pt LVM asking for her CT scan results. Noted in pt chart was an unread message from regarding the most recent CT scan. LVM for pt and let her know about MyChart message and provided number if pt has any further questions. [facility] 02-26-2024 Miscellaneous Notes Pt LVM asking for her CT scan results. Noted in pt chart was an unread message from regarding the most recent CT scan. LVM for pt and let her know about MyChart message and provided number if pt has any further questions. documented in this encounter [facility] 02-12-2024 Telephone encounter Note Patient LVM requesting results from 02/01/24 CT Urogram. Will update medical team [facility] 02-12-2024 Miscellaneous Notes Patient LVM requesting results from 02/01/24 CT Urogram. Will update medical team documented in this encounter [facility] 02-01-2024 Note HNO ID: [id number] Author: PRERNA CORRAL RT(R) Service: ? Author [...] PATIENT PRESENTS WITH AN IMPLANTABLE OR ATTACHED NEGATIVE SPOTTER: No RADIOLOGY DEPARTMENT: CT; Exam(s) Completed: Urogram PERIPHERAL IV DATA: Site assessment: Clean,Dry and Intact, Site disposition Discontinued SIGNED BY: RT Michael(R) February 01, 2024 2:50 PM [facility] 02-01-2024 Note HNO ID: [id number] Author: HEIDY LINDA RN Service: Nursing Author [...] DATE: February 01, 2024 TIME: 2:50 PM [facility] 01-12-2024 Note HNO ID: [id number] Author: SANJANA CALLAWAY MA Service: ? Author Type: Custom Shoemaker Type: Progress Notes Filed: 01/12/2024 14:43 Note Text: Post Void Residual done on patient with 211 cc residual volume remaining. notified. Sanjana Callaway MA [facility] 01-12-2024 History of Presen t illness Narrative Post Void Residual done on patient with 211 cc residual volume remaining. notified. Sanjana Callaway MA [facility] FOLLOW-UP PATIENT HISTORY AND PHYSICAL [...] urogram Will refer to Dr. Tamanna Ruiz APRN.WEBSPHERE ARCHITECT Attending Note I have personally performed a [...] Past Histories independently gathered by the clinical health support specialist and the remaining scribed note accurately describes my personal service to the patient. Dr. Taurus Ballard MD documented in this encounter [facility] 01-12-2024 Note HNO ID: [id number] Author: TAURUS BALLARD MD Service: ? Author Type: Physician Type: Progress Notes Filed: 01/12/2024 14:43 Note [facility]IENT HISTORY AND PHYSICAL EXAM PATIENT [...] urogram Will refer to Dr. Tamanna Ruiz APRN.WEBSPHERE ARCHITECT Attending Note I have personally performed a [...] MD Date: 01/12/2024 (more content not included)... [facility] 11-06-2023 Miscellaneous Notes Last Office Visit: 08/09/2024 Next Office Visit: 11/22/2023 Last Urine Drug Screen: Lab Results Component Value Date BENZOSCRN Negative 08/09/2023 OARRS appropriate documented in this encounter [facility] 11-06-2023 Telephone encounter Note Last Office Visit: 08/09/2024 Next Office Visit: 11/22/2023 Last Urine Drug Screen: Lab Results Component Value Date BENZOSCRN Negative 08/09/2023 OARRS appropriate [facility] 10-25-2023 Hospital Discharg e instructions Patient Education [...] including vitamins, herbs, eye drops, creams, and zbzy-gyv-xpxtrxd medicines. Any problems you or family members [...] provider tells you to take them. Taking sjyg-pbd-wbeohik medicines, vitamins, herbs, and supplements. General instructions [...] Follow these instructions at home: Medicines Take gwog-cqh-ruobrsh and prescription medicines only as told by [...] provider. Document Revised: 02/11/2022 Document Reviewed: 02/11/2022 [employer] Patient Education 2022 [employer]. Follow Up Care 09/26/2023 08:43:34 With:CATALINA VIRGEN, HEIDY Rodriguez, URL Address: [address] [facility] [place] [address] When: Unknown [facility] 10-10-2023 Miscellaneous Notes Last OV: 08/12/23 Next OV: proc 10/13/23 OARRS appropriate: yes Last UDS: 08/12/23 [facility] [place] [facility]10-2023 Telephone encounter Note Last OV: 08/12/23 Next OV: proc 10/13/23 OARRS appropriate: yes Last UDS: 08/12/23 [facility] [place] [facility] Miscellaneous Notes Summary: [facility] IRB# [id number] IRB# [id number]: Vascular events in patients undergoing same-day nonCardiac surgery - CHRISTOPHER PI: Mary Rojas MD, LETY, FASA. Outcomes Research Department. Anesthesia [place]. [facility]. Aislinn Pulido Liam was unavailable at the listed phone number. We will attempt to contact the patient through [employer] message. Drew Esqueda, Research Coordinator Research Coordinator documented in this encounter [facility] 09-26-2023 Miscellaneous Notes Summary: CHRISTOPHER IRB# [id number] IRB# [id number]: Vascular events in patients undergoing [facility]day [facility]iac [facility] PI: Mary Rojas MD, LETY, FASA. Outcomes Research Department. Anesthesia [place]. [facility]. Aislinn Wheeler was unavailable at the listed phone number. We will attempt to contact the patient again at a later date. Drew Esqueda, Research Coordinator Research Coordinator documented in this encounter [facility] 09-07-2023 Miscellaneous Notes Last OV: 08/09/2023 Next OV: --- OARRS appropriate: yes Last UDS: 08/09/2023 Pharmacy: [facility] [place] [facility] Patient left phone message requesting refill on Eclectic and Lyrica. Lyrica prescription signed 08/11/2023 has 1 refill. Per OARRS patient last filled Lyrica 08/11/2023. Eclectic prescription pended for review and signature. Patient's fill dated adjusted from 09/14/23 to 09/17/23 due to recent 3 day hospitalization. documented in this encounter [email or web address] 09-07-2023 Telephone encounter Note Last OV: 08/09/2023 Next OV: --- OARRS appropriate: yes Last UDS: 08/09/2023 [facility]acy: [facility] [place] [facility] Patient left phone message requesting refill on Eclectic and Lyrica. Lyrica prescription signed 08/11/2023 has 1 refill. Per OARRS patient last filled Lyrica 08/11/2023. Eclectic prescription pended for review and signature. [facility] [email or web address] 09-07-2023 Telephone encounter Note Patient's fill dated adjusted from 09/14/23 to 09/17/23 due to recent 3 day hospitalization. [facility] [email or web address] 09-03-2023 Note HNO ID: [id number] Author: KRYSTA SULLIVAN MD Service: Hospital Medicine [...] -- 08/31/23 1115 activity - mobilize patient (ky,or) VTE Prophylaxis: VTE prophylaxis appropriate SIGNATURE: Krysta Sullivan MD PATIENT NAME: Aislinn Wheeler DATE: September 03, 2023 TIME: 6:31 PM [facility] 09-02-2023 Note HNO ID: [id number] Author: KRYSTA SULLIVAN MD Service: Hospital Medicine [...] -- 08/31/23 1115 activity - mobilize patient (ky,or) VTE Prophylaxis: VTE prophylaxis appropriate SIGNATURE: Krysta Sullivan MD PATIENT NAME: Aislinn Wheeler DATE: September 02, 2023 TIME: 2:31 PM [facility] 09-02-2023 Note HNO ID: [id number] Author: NOTE, INTERFACE, ? Service: ? Author Type: ? Type: Progress Notes Filed: 09/02/2023 02:20 Note Text: Epic Scheduled Downtime: 09/02/2023 1:00:00 AM to 09/02/2023 2:04:22 AM [facility] 09-01-2023 Note HNO ID: [id number] Author: MIKE LOUIS RN Service: Care Management Author Type: Registered Nurse Type: Care Mgt Progress Note Filed: 09/01/2023 15:30 Note Text: CARE MANAGEMENT WEEKEND PLANNING NOTE NO WEEKEND DISCHARGE Disposition: TBD Anticipated Discharge Date: No weekend DC anticipated Weekend Supervisor [employer] Pager #: Girish Rogers [phone] ANATOLIY UTI - repeat UA sent - bc pending Waiting on podiatry consult SIGNATURE: Mike Louis RN PATIENT NAME: Aislinn Wheeler DATE: September 01, 2023 TIME: 3:28 PM PAGER/CONTACT #: [phone] [facility] 09-01-2023 Note HNO ID: [id number] Author: ANTHONY BARROW MD Service: Hospital Medicine [...] -- 08/31/23 1115 activity - mobilize patient ([place], [place]) VTE Prophylaxis: VTE prophylaxis appropriate SIGNATURE: Anthony Barrow MD PATIENT NAME: Aislinn Wheeler DATE: September 01, 2023 TIME: 11:36 AM [facility] 08-31-2023 History of Past i llness [...] of this encounter (statuses as of 09/27/2023) [facility] History of Past illness Narrative* Problem Noted Date Diagnosed Date Resolved Date Fever 08/31/2023 09/04/2023 Urinary tract infection without hematuria 08/31/2023 09/04/2023 Acute cystitis without hematuria 01/18/2021 01/21/2021 Pyelonephritis 01/17/2021 01/21/2021 Sepsis 01/17/2021 01/21/2021 Hyponatremia 01/17/2021 01/21/2021 Hyperkalemia 01/17/2021 09/04/2023 ANATOLIY (acute kidney injury) 01/17/2021 Hydronephrosis due to obstruction of ureter 01/17/2021 01/21/2021 documented as of this encounter (statuses as of 09/28/2023) [facility] History of Past illness Narrative* Problem Noted Date Diagnosed Date Resolved Date Fever 08/31/2023 09/04/2023 Urinary tract infection without hematuria 08/31/2023 09/04/2023 Acute cystitis without hematuria 01/18/2021 01/21/2021 Pyelonephritis 01/17/2021 01/21/2021 Sepsis 01/17/2021 01/21/2021 Hyponatremia 01/17/2021 01/21/2021 Hyperkalemia 01/17/2021 09/04/2023 ANATOLIY (acute kidney injury) 01/17/2021 Hydronephrosis due to obstruction of ureter 01/17/2021 01/21/2021 documented as of this encounter (statuses as of 09/28/2023) [facility]24 NoteHNO ID: [id number] Author: TIN QUIÑONEZ LSW Service: Care Management Author Type: Wind Tunnel Mechanic Type: Care Mgt Initial Assessment Filed: 08/31/2023 14:02 Note Text: CARE MANAGEMENT: ASSESSMENT AND DISCHARGE PLAN SERVICE DATE: August 31, 2023 SERVICE TIME: 1:42 PM PCP: Agusto Olmstead Primary Contact: Extended Emergency Contact Information Primary Emergency Contact: LOLA SEARS Mobile Relation: Grandchild Admission Status: Inpatient Insurance Provider: [facility] MEDICARE PPO Discharge Planning requested by: Per Department Practice Potential Transition Plans To Be Determined Advance Directives Current Advance Directive: None Kiln Packer Attempted to Assist with AD Completion: Yes Action: Education Provided Current Living Arrangements and Support Lives with: Family members, Children Type of Residence: Private Residence (House) Support: Family members How do you manage to accomplish the following: Independent: Ambulation;Bathe/Shower;Dress;Meals/Meal Prep;Going to the bathroom;Medication Management;Transportation to appointments/community Current Services/Equipment Current Post-Acute Service(s): None Discharge Planning Patient Goal(s): General wellness [place] Choice Explained: [place] Given: No Reason Not Given: [...] with pt at bedside. Pt lives in [facility] with her grandchildren (18, 17, and 13). [...] 31, 2023 TIME: 1:42 PM CONTACT #: [id number] Evaluation note* Encounter Date Diagnosis Assessment Notes Treatment Notes Treatment Clinical Notes Jun, Vitamin B12 deficiency (ICD-10 - E53.8) [facility] Other 11-03-2023 NoteHNO ID: [id number] Author: Lakisha Kaye Service: ? Author Type: ? Type: Plan of Care Filed: 06/26/2023 9:53 AM Note Text: PHARMACY BEDSIDE DELIVERY SERVICE Patient Name: Aislinn Wheeler The marked outpatient medications were Filled at: [facility] and delivered to the patient's bedside to [facility] Medication List START taking these [...] your Primary Care Provider. Lakisha Kaye PAGER: [phone] June 26, 2023 9:52 [facility]11-03-2023 Miscellaneous Notes* Telephone Encounter - Heidy Garcia RN - 06/23/2023 9:03 AM EDT Patient had left robotic partial nephrectomy by Dr. Ballard on 06/22/2023 Will call for surgical follow up once discharged documented in this encounterProm[facility]-2023 NoteHNO ID: [id number] Author: Taurus Ballard MD Service: Urology Author Type: Physician Type: Progress Notes Filed: 06/23/2023 1:37 PM Note Text: [facility] UROLOGY PROGRESS NOTE Name: Aislinn Wheeler Bed: [id number] Date: June 23, 2023 After Hours [facility] Service Pager: [phone] ASSESSMENT AND PLAN Aislinn Wheeler is a [...] De La Fuente MD Urology Resident Formerly [facility] [place] Pager [phone] SUBJECTIVE -c/o pain, had a BM, no [...] 0659 06/23/23 0700 - 06/24/23 0659 Shift 0441-2751 2867-1046 3484-5328 24 Hour Total 3180-0687 5498-0710 4997-8916 24 Hour Total INTAKE IV 1600 1600 Volume (mL) (lactated ringers iv infusion) 1000 1000 Volume (mL) (lactated ringers iv infusion) 600 600 Shift Total 1600 1600 OUTPUT Urine 300 166 735 6027 OR Urine Output 300 300 Output ( Indwelling Urinary Catheter 06/22/23 1130 Chaves 16 Fr) 046 532 9158 Tubes 20 40 60 Drain/Tube Output (Drain/Tube 06/22/23 1333 Lex Vega Right Lower Quadrant Abdomen Drain #1) 20 40 60 # of BMs Number of BMs 1 x 1 x Blood 50 50 Estimated Blood loss 50 50 Shift Total 350 770 321 7679 Weight (kg) 59 59 59 59 59 [...] We will call with pathology. Taurus Ballard [facility]11-02-2023 NoteHNO ID: [id number] Author: Linda Nicholson RN Service: Nursing Author Type: Registered Nurse Type: Nursing Progress Note Filed: 06/22/2023 2:15 PM Note Text: surgical dressing: surgical glue, [facility]11-02-2023 NoteHNO ID: [id number] Author: Lola Be APRN.VP CUSTOMER DEVELOPMENT Service: ? Author Type: Nurse Cap Maker Type: Anesthesia Procedure Notes Filed: 06/22/2023 12:24 PM Note Text: ANESTHESIOLOGY PROCEDURE NOTE Airway General Information Procedure Start Time/Medication Administration: 06/22/2023 11:22 AM Patient location during procedure: OR Patient identity confirmed: arm band, care steam box tender and patient Staffing VP CUSTOMER DEVELOPMENT: Lola Be APRN.VP CUSTOMER DEVELOPMENT Performed by: VP CUSTOMER DEVELOPMENT Indications and Patient Condition Indications for airway [...] June 22, 2023 TIME: 12:24 PM CSN: [id number] Miscellaneous Notes* Telephone Encounter - Vonnie Wilder RN - 06/15/2023 11:24 AM EDT Attempted to call patient for pre op instructions.mailbox is full and unable to LVM. Will try again. documented in this encounterPromedica F[facility]10-19-2023 Evaluation note* Encounter Date Diagnosis Assessment [...] (ICD-10 - Z68.25) May, Other see above [facility] Other 10-02-2023 Note [id number]#1.00CD:127Nik [facility] 05-22-2023 NoteCystoscopy with Botox injection ? [...] if you have a fever over 100 degrees.[facility] 05-22-2023 Hospital Discharge instructions Patient [...] Up Care 05/03/2023 10:48:47 With:Lisa Porras Address: [address] [place] [phone] Business (1) [address], [address] [address] [phone] Business (1) When: Unknown Comments:Office to schedule follow up in 1 month with [facility]09-28-2023 Evaluation note* Encounter Date Diagnosis Assessment [...] 24.0-24.9, adult (ICD-10 - Z68.24) see above [facility] Other 09-28-2023 Miscellaneous Notes* Telephone Encounter - Agusto Faulkner - 05/18/2023 12:57 PM EDT Consult notes sent back to Dr. Lisa Porras , phone [phone]. From Dr[address] Ballard office. documented in this encounterPromedica Flower Hospital09-27-2023 NoteHNO ID: [id number] Author: Taurus Ballard MD Service: ? Author Type: Physician Type: Progress Notes Filed: 05/17/2023 1:35 PM Note [facility] [place] [facility] PATIENT HISTORY AND PHYSICAL EXAM PATIENT [...] 1.92 01/19/[address] scan (outside records) [facility] 09/28/21 IMPRESSION: Since the prior CT scan [...] threatening or minor complicatio (more content not included)...[facility] CenterFhkyeqss48-89-8196 Hospital Discharge instructions Patient Education 02/22/2023 09:35:15 [...] provider. Document Revised: 12/16/2021 Document Reviewed: 12/16/2021 [employer] Patient Education 2022 [employer]. Follow Up Care 09/13/2022 14:59:43 With:Vern TAVERAS, [...] N28.1) Patient follows with urology clinic in [facility] for enlarging left renal cyst. December, Hyperkalemia [...] her blood pressure persistently more than 150/90. [facility] Other 02-01-2023 Hospital Discharge instructions Patient Education [...] 07/24/2013 Document Revised: 03/27/2019 Document Reviewed: 03/27/2019 [employer] Patient Education 2020 [employer]. Follow Up Care 09/14/2022 14:44:34 With:Vern TAVERAS, EMELINA Hernandez, URO Address: When: Unknown [facility] 01-24-2023 Hospital Discharge instructions Patient Education [...] fried and sweet foods. General instructions Take uokd-pjl-kxvpmjx and prescription medicines only as told by [...] 06/03/2010 Document Revised: 11/28/2019 Document Reviewed: 08/23/2018 [employer] Patient Education 2020 [employer]. Follow Up Care 08/24/2022 11:21:49 With:HEIDY ARNOLD PA-C, URL Address: [address] [place] [address] When: Unknown [facility] 06-09-2021 Miscellaneous Notes* Telephone Encounter - Barbara Talbot - 01/27/2021 10:30 AM EDT Scheduled 02/15 * Telephone Encounter - Barb Silva MD - 01/27/2021 9:40 AM EDT Please schedule hospital follow up with Guy Overton Deitzer, or Sasha. Virtual ok documented in this encounterPromedica Flower Hospital06-03-2021 NoteHNO ID: [id number] Author: Griselda Diaz (Sanitation Inspector) Service: ? Author Type: ? Type: Plan [...] Generic drug: insulin detemir U-100 Griselda Diaz (Sanitation Inspector) PAGER: paris January 21, 2021 4:27 [facility] HospitalNvhthlyi15-[facility]-6384 NoteHNO ID: [id number] Author: ELIZABETH Kothari Service: Care Management Author Type: Wind Tunnel Mechanic Type: Care Mgt Progress Note Filed: 01/21/2021 1:39 PM Note Text: CARE MANAGEMENT DISCHARGE NOTE SERVICE DATE: 01/21/2021 SERVICE TIME: 1300 LOS: 4 days Admission Date: 01/17/2021 DISCHARGE ARRANGEMENT (list agency and phone number) Discharge Arrangement: Home;Home Penitentiary Care: Nursing;PT;OT [facility] ASSESSMENT: Maira Davila to transport home [phone] HANDOFF COMMUNICATION: Handoff to: Other Caregiver;Primary Care Physician Primary Care Physician Name/Phone: Madeline Jordan PA-C Other Caregiver Name/Phone: [facility] Care TRANSPORTATION ARRANGEMENTS: Transportation Arrangements: Car (Family to transport) ADDITIONAL CONTACT RESOURCES: [facility] not able to accept. [place] choice provided and sent to first available to accept to her service area. [facility] willing to accept. Pt concerned she [facility] not have [facility] services. I spoke with maira who plans on paying for services out of pocket until pt's insurance becomes active February 18, 2021 Discharge Information Row Name ED to Hosp-Admission (Current) from 01/17/[address] Care Agency [facility] Fax# Care to start after your appointment with internal medicine on 01/25/2021 for additional orders. The agency will be contacting you to set this up [employer] [facility] [employer] Equipment Needed Walker was delivered to hospital room prior to discharge [facility] willing to accept pending pt has her initial appointment with internal medicine on 01/25/2021. Both pt and maira Davila were advised. Dr Hansen also provided script for outpt therapy should home care fall through or cost too high for jessicadtr to cover. Lola to call [facility] to discuss further. Walker was delivered to room and prescription was sent to [facility]. Lola to picking belt operator. No other homegoing needs. SIGNATURE: ELIZABETH Kothari PATIENT NAME: Aislinn Wheeler DATE: January 21, 2021 TIME: 1:32 PM PAGER/CONTACT #: [phone] [id number] NoteHNO ID: [id number] Author: Derik Daniel Service: Care Management Author Type: Resource Center Solid Waste Facility Supervisor Type: Care Mgt Progress Note Filed: 01/21/2021 11:24 AM Note Text: CARE MANAGEMENT PROGRESS NOTE SERVICE DATE: 01/21/2021 SERVICE TIME: 950 LOS: 4 days IMM Follow Up Copy Given: Yes Copy given to:: Patient Method: In Person SIGNATURE: Derikmima Khalilloriepuma PATIENT NAME: Aislinn Wheeler DATE: January 21, 2021 TIME: 11:23 AM PAGER/CONTACT #: [phone] [id number] NoteHNO ID: [id number] Author: Ailyn Salas RN Service: Care Management Author Type: Registered Nurse Type: Care Mgt Progress Note Filed: 01/20/2021 3:29 PM Note Text: CARE MANAGEMENT PROGRESS NOTE SERVICE DATE: 01/20/2021 SERVICE TIME: 3:09 PM LOS: 3 days [place] of Choice Given: Yes Level of Care Discussed: Home Care Financial Disclosure Provided: No Financial Disclosure Comments: [facility] does not service area Provider List: [...] sent. Patient does not have a PCP. [employer] [employer] can provide a visiting provider to [...] 20, 2021 TIME: 3:09 PM PAGER/CONTACT #: [phone] [id number] NoteHNO ID: [id number] Author: Inna Hansen DO Service: Hospital Medicine Author Type: Physician Type: Progress Notes Filed: 01/20/2021 12:37 PM Note Text: DEPARTMENT OF HOSPITAL MEDICINE PROGRESS NOTE SERVICE DATE: 01/20/2021 SERVICE TIME: 10:37 AM Hospital Medicine/Primary Attending: Inna Hansen DO NIGHT AND WEEKEND COVERAGE: DELMY COVERAGE: : [phone], please contact via [employer] Nights: [phone], please page CC Hospitalist Night coverage pager [phone] Subjective INTERVAL HPI: nausea and vomiting this [...] Non-Pharmacologic VTE Prophylaxis/Anticoagulants 01/17/212214 pneumatic compression stockings (ky,or) 01/17/212214 activity - mobilize patient ([place]) VTE Prophylaxis: VTE prophylaxis appropriate Disposition: TBD Inna Hansen DO January 20, 2021 10:39 [facility] CenterRfxwniha87-02-2972 NoteHNO ID: [id number] Author: Benjamin Bernal MD Service: Urology Author [...] Wendy Bernal MD January 19, 2021 4:12 [facility] HospitalMzljzwpa05-92-7895 NoteHNO ID: [id number] Author: Diana SernaD Service: Pharmacy Author Type: Pharmacist Type: Plan of Care Filed: 01/19/2021 11:02 AM Note Text: PHARMACY MEDICATION REVIEW Patient Name: Aislinn Wheeler : 1960 The following medications were updated within the EXECUTIVE SALES MANAGER medication list: Medications ADDED to EXECUTIVE SALES MANAGER medication list ? Albuterol HFA (replaced nebs) ? Levemir (replaced Lantus) Medications CHANGED on EXECUTIVE SALES MANAGER medication list ? Lyrica (added instructions) ? Symbicort (added instructions) Medications REMOVED from EXECUTIVE SALES MANAGER medication list ? Diltiazem ? Cymbalta ? [...] nothing too big . Call placed to [facility] pharmacy to clarify prescribed dose of insulin, and the only prescription for insulin [facility] has on file is for Relion 70/30 inject 25 units BID. [facility] pharmacist states this was prescribed 02/19/2020 but never picked up. The below information represents the best possible medication history: Yes Medication history completed by: Pharmacist: Shelby Lucero PharmD Source of history: Patient: Reliability of source: Appears reliable, clearly identified: Medication name and Pharmacy records: SureScripts data, [facility] pharmacy (phone call) Medication nonadherence identified: Unable to assess - it is clear the patient is noncompliant with her medications (admits she has been off her meds, no insulin fills at [facility] despite patient report), but at this time unable to assess reason for nonadherence. Reconciliation completed: Yes All EXECUTIVE SALES MANAGER medications addressed by LIP and Medication reconciliation completed by: Shelby Lucero PharmD Medications with dose or frequency intentionally adjusted at admission: ? Eclectic modified to 5/325 mg q6h PRN New medications at admission: ? Ceftriaxone Note patient ordered insulin regimen (Lantus 15 units QHS + sliding scale Humalog) and based on blood glucose readings, this is appropriate Patient interested in Bedside Delivery Services or using [facility] OP Pharmacy at discharge? Unable to assess Preferred outpatient pharmacy: [facility] [address] [place] [address] - [address] [facility] - [phone] Allergies: Latex Rash Comment:Added based on information [...] as instructed twice daily. Shelby Lucero, PharmD 01/19/20[place] [id number] NoteHNO ID: [id number] Author: Inna Hansen DO Service: Hospital Medicine Author Type: Physician Type: Progress Notes Filed: 01/19/2021 2:24 PM Note Text: DEPARTMENT OF HOSPITAL MEDICINE PROGRESS NOTE SERVICE DATE: 01/19/2021 SERVICE TIME: 9:30 AM Hospital Medicine/Primary Attending: Inna Hansen DO NIGHT AND WEEKEND COVERAGE: DELMY COVERAGE: Days: [phone], please contact via [employer] Nights: [phone], please page CC Hospitalist Night coverage pager [phone] Subjective INTERVAL HPI: no overnight events. Denies [...] Non-Pharmacologic VTE Prophylaxis/Anticoagulants 01/17/212214 pneumatic compression stockings (ky,or) 01/17/212214 activity - mobilize patient ([place]) VTE Prophylaxis: VTE prophylaxis appropriate Disposition: Home Discussed with granddaughter Lola by phone with patient's permission. Inna Hansen DO January 19, 2021 9:33 [facility] CenterGqrbsycr30-92-7625 History of Past illness Narrative* Problem Noted Date Resolved Date Acute cystitis without hematuria 01/18/2021 01/21/2021 Pyelonephritis 01/17/2021 01/21/2021 Sepsis 01/17/2021 01/21/2021 Hyponatremia 01/17/2021 01/21/2021 Hyperkalemia 01/17/2021 01/21/2021 Hydronephrosis due to obstruction of ureter 12/2101/21/2021 documented as of this encounter (statuses as of 01/27/2021) [facility] of Past illness Narrative* Problem Noted Date Diagnosed Date Resolved Date Acute cystitis without hematuria 01/18/2021 01/21/2021 Pyelonephritis 01/17/2021 01/21/2021 Sepsis 01/17/2021 01/21/2021 Hyponatremia 01/17/2021 01/21/2021 Hyperkalemia 01/17/2021 01/21/2021 Hydronephrosis due to obstruction of ureter 01/17/2021 01/21/2021 documented as of this encounter (statuses as of 06/09/2023) [facility] of Past illness Narrative* Problem Noted Date Diagnosed Date Resolved Date Acute cystitis without hematuria 01/18/2021 01/21/2021 Pyelonephritis 01/17/2021 01/21/2021 Sepsis 01/17/2021 01/21/2021 Hyponatremia 01/17/2021 01/21/2021 Hyperkalemia 01/17/2021 01/21/2021 Hydronephrosis due to obstruction of ureter 01/17/2021 01/21/2021 documented as of this encounter (statuses as of 06/15/2023) [facility] of Past illness Narrative* Problem Noted Date Diagnosed Date Resolved Date Acute cystitis without hematuria 01/18/2021 01/21/2021 Pyelonephritis 01/17/2021 01/21/2021 Sepsis 01/17/2021 01/21/2021 Hyponatremia 01/17/2021 01/21/2021 Hyperkalemia 01/17/2021 01/21/2021 Hydronephrosis due to obstruction of ureter 01/17/2021 01/21/2021 documented as of this encounter (statuses as of 06/19/2023) [facility] of Past illness Narrative* Problem Noted Date Diagnosed Date Resolved Date Acute cystitis without hematuria 01/18/2021 01/21/2021 Pyelonephritis 01/17/2021 01/21/2021 Sepsis 01/17/2021 01/21/2021 Hyponatremia 01/17/2021 01/21/2021 Hyperkalemia 01/17/2021 01/21/2021 Hydronephrosis due to obstruction of ureter 01/17/2021 01/21/2021 documented as of this encounter (statuses as of 06/23/2023) [facility] of Past illness Narrative* Problem Noted Date Diagnosed Date Resolved Date Acute cystitis without hematuria 01/18/2021 01/21/2021 Pyelonephritis 01/17/2021 01/21/2021 Sepsis 01/17/2021 01/21/2021 Hyponatremia 01/17/2021 01/21/2021 Hyperkalemia 01/17/2021 01/21/2021 Hydronephrosis due to obstruction of ureter 01/17/2021 01/21/2021 documented as of this encounter (statuses as of 07/05/2023) [facility] NoteHNO ID: [id number] Author: Inna Hansen DO Service: Hospital Medicine Author Type: Physician Type: Progress Notes Filed: 01/18/2021 4:10 PM Note Text: DEPARTMENT OF HOSPITAL MEDICINE PROGRESS NOTE SERVICE DATE: 01/18/2021 SERVICE TIME: 8:57 AM Hospital Medicine/Primary Attending: Inna Hansen DO NIGHT AND WEEKEND COVERAGE: DELMY COVERAGE: Days: [phone], please contact via [employer] Nights: [phone], please page CC Hospitalist Night coverage pager [phone] Subjective INTERVAL HPI: no overnight events. Denies [...] POA: Yes Principal Problem: Sepsis ([facility]) Pyelonephritis Complicated UTI Hydronephrosis due to obstruction [...] Non-Pharmacologic VTE Prophylaxis/Anticoagulants 01/17/212214 pneumatic compression stockings ([place]) 01/17/212214 activity - mobilize patient ([place]) VTE Prophylaxis: VTE prophylaxis appropriate Disposition: Home SIGNATURE: Inna Hansen DO PATIENT NAME: Aislinn Wheeler DATE: January 18, 2021 TIME: 8:57 [facility] CenterCvaxsbny59-02-7623 NoteHNO ID: [id number] Author: Taurus Ballard MD Service: Urology Author [...] cause of her urinary retention. Taurus Ballard, [facility] WestDmecdwjx88-86-5641 NoteHNO ID: [id number] Author: RT Dayanara(R) Service: Radiology Author Type: Senior Marketing Engineer Type: Progress Notes Filed: 01/17/2021 8:04 PM [...] BY: RT Dayanara(R) January 17, 2021 8:03 [facility] HospitalQqnohvft34-23-7806 NoteHNO ID: [id number] Author: RT Dayanara(R) Service: Radiology Author Type: Senior Marketing Engineer Type: Progress Notes Filed: 01/17/2021 5:30 PM [...] BY: RT Dayanara(R) January 17, 2021 5:30 [facility] HospitalDfxvqfzb61-62-7311 NoteHNO ID: [id number] Author: RT Zaynab(R) Service: Radiology Author Type: Senior Marketing Engineer Type: Progress Notes Filed: 01/17/2021 4:23 PM [...] Workman RT (R) January 17, 2021 4:22 [facility] HospitalSnkghlok37-37-5871 NoteHNO ID: [id number] Author: AHSAN Barlow Service: ? Author Type: Clinical Senior Marketing Engineer Type: Progress Notes Filed: 01/17/2021 4:19 PM [...] BY: AHSAN Dozier January 17, 2021 4:19 [facility] note Future Appointments Appointment Date:12/13/2022 03:00:00 PM Scheduled Provider:HEIDY ARNOLD PA-C Location:[facility] Appointment Type:URO Office Visit [facility] evaluation + Plan note Future Appointments Appointment Date:10/26/2022 10:00:00 AM Scheduled Provider:Lisa Porras MD Location:[facility] Appointment Type:URO Office Visit Appointment Date:12/13/2022 03:00:00 PM Scheduled Provider:HEIDY ARNOLD PA-C Location:[facility] Appointment Type:URO Office Visit [facility] evaluation + Plan note Future Appointments Appointment Date:05/03/2023 10:00:00 AM Scheduled Provider:Lisa Porras MD Location:[facility] Appointment Type:URO Office Visit [facility] evaluation + Plan note Future Appointments Appointment Date:05/03/2023 10:00:00 AM Scheduled Provider:Lisa Porras MD Location:[facility] Appointment Type:URO Office Visit Diagnostic Tests Pending * [facility] Future Appointments Appointment Date:05/15/2023 12:30:00 PM Scheduled Provider: Location:[facility] Appointment Type:Urology CALL PAT FT Appointment Date:05/22/2023 10:30:00 AM Scheduled Provider: Location:[facility] Appointment Type:Urology FT Diagnostic Tests Pending * Urine Culture [facility]11[facility]23 [facility] Future Appointments Appointment Date:06/28/2023 10:45:00 AM Scheduled Provider:Lisa Porras MD Location:[facility] Appointment Type:URO [facility] Future Appointments Appointment Date:06/28/2023 10:45:00 AM Scheduled Provider:Lisa Porras MD Location:[facility] Appointment Type:URO Office Visit Diagnostic Tests Pending * Urine Culture [facility]08[facility] Future Appointments Appointment Date:07/18/2023 11:20:00 AM Scheduled Provider:HEIDY ARNOLD PA-C Location:[facility] Appointment Type:URO Office Visit [facility] evaluation + Plan note Future Appointments Appointment Date:10/10/2023 11:40:00 AM Scheduled Provider:HEIDY ARNOLD PA-C Location:[facility] Appointment Type:URO Office Visit [facility] evaluation noteNo [employer] Other Evaluation note* Diagnosis Kidney cyst, acquired- Primary Acquired cyst of kidney documented in this encounter [facility]* Diagnosis Reflex sympathetic dystrophy of right upper extremity documented [facility] this encounter [facility] noteNo assessment information [facility] Work Phone: Evaluation note* Diagnosis Reflex sympathetic dystrophy of right upper extremity Complex regional pain syndrome type 1 of right upper extremity [facility] this encounter [facility]* Diagnosis Reflex sympathetic dystrophy of right upper extremity Complex regional pain syndrome type 1 of right upper extremity documented in this [facility] Diagnosis Other hydronephrosis- Primary Screening for genitourinary condition Screening for other and unspecified genitourinary condition documented in this encounter [facility] Diagnosis Retention of urine- Primary Retention of urine, unspecified Screening for genitourinary condition Screening for other and unspecified genitourinary condition Type 2 diabetes mellitus with hyperglycemia, with long-term current use of insulin ([facility]) BURKE (stress urinary incontinence, female) Female stress incontinence documented in this encounter [facility] Diagnosis Lung nodule- Primary Solitary pulmonary nodule documented in this encounter [facility]* Diagnosis Stress incontinence- Primary Female stress incontinence Dysfunctional voiding of urine Unspecified disorder of urethra and urinary tract documented in this encounter [facility]* Diagnosis Preop examination- Primary Preoperative examination, [...] hyperglycemia, with long-term current use of insulin ([facility]) Neurogenic bladder- Primary Neurogenic bladder, NOS BURKE (stress urinary incontinence, female) Female stress incontinence documented in this encounter [facility] general Narrative - Reported* Type Description [...] SURGERY Hospitalization History DKA 2014 Hospitalization History [facility]2022 [facility] Other [facility] general Narrative - Reported* Type Description Date [...] SURGERY Hospitalization History DKA 2014 Hospitalization History [facility]2022 [facility] Other Hospital course Narrative No data available for this section [facility] Hospital Discharge instructions No data available for this section [facility] InstructionsNot on filedocumented in this encounter [facility] filedocumented in this encounter [facility] No data available for this section [facility] Haroldo reason for referral (narrative)* Diagnostic Procedure Only (Routine) - Pending Review Specialty Diagnoses / Procedures Referred By Danny hensley Referred To Contact [facility] Diagnoses Kidney cyst, acquired Procedures US KIDNEY/BLADDER US RETROPERITONEAL REAL TIME W/IMAGE COMPLETE Taurus Ballard MD [address] [place] [address] Us Imaging [place] [address] Referral ID Status Reason Start Date Expiration Date Visits Requested Visits Authorized [id number] Pending Review Auto-Generat ed Referral 10/05/2023 08/03/2024 1 1 [facility] for referral (narrative)* Outpatient Procedure (Routine) - New Request Specialty Diagnoses / Procedures Referred By Danny hensley Referred To Contact [facility] Diagnoses Retention of urine BURKE (stress urinary incontinence, female) Procedures FLUROURODYNAMICS WITH EMG EMG STDS ANAL/URTL SPHNCTR OTH/THN NDL Carmenza Nolen MD [address] [place] [address] [place] [address] Referral ID Status Reason Start Date Expiration Date Visits Requested Visits Authorized [id number] New Request Auto-Generat ed Referral 03/26/2024 03/26/2025 1 1 [facility] for visit NarrativeReferral Agusto Olmstead, New pt Type 2 IDDM apt with [employer] EXECUTIVE DIRECTOR OF NURSING, DISABILITY LIAISON OFFICER-C, [employer] [employer] Other Summary Purpose Family History No Family [...] FoundDocuments on File Type Date Recorded Patient Medical Assistant Secretary Expl anation Advance Directive(s) 01/17/2021 3:49 PM Reason for Referral Specialty Diagnoses / Procedures Referred By Contyehuda t Referred To Contact CT IMAGING Diagnoses Other hydronephrosis Procedures CT UROGRAM WO/W IVCON CT ABD & PELVIS W/WO CONTRST 1+ BODY REGNS Taurus Ballard MD [address] [place] [address] Ct Imaging [facility] Referral ID Status Reason Start Date Expiration Date Visits Requested Visits Authorized [id number] Pending Review Auto-Generat ed Referral 01/19/2024 02/10/2025 1 1 Referred by: Vern TAVERAS, Lisa Montiel Chief Complaint and Reason for Visit Chief Complaint Renal 4 Month Follow Up Additional Source Comments INFORMATION SOURCE (unrecogn ized section and content) DATE CREATED AUTHOR 01/23/2021 [facility] DATE CREATED AUTHOR AUTHOR'S ORGANIZ ATION 01/04/2023 [facility] DATE CREATED AUTHOR AUTHOR'S ORGANIZ ATION 10/19/2023 [facility] DATE CREATED AUTHOR AUTHOR'S ORGANIZ ATION 11/03/2023 [facility] DATE CREATED AUTHOR AUTHOR'S ORGANIZ ATION 03/05/2024 [facility] DATE CREATED AUTHOR AUTHOR'S ORGANIZ ATION 04/02/2024 [facility] DATE CREATED AUTHOR AUTHOR'S ORGANIZ ATION 04/15/2024 [facility] DATE CREATED AUTHOR AUTHOR'S ORGANIZ ATION 04/18/[address] [facility] dical [facility] DATE CREATED AUTHOR AUTHOR'S ORGANIZ ATION 04/25/2024 [facility] Source Comments (unrecognize d section and content) In the event this informatio n is protected by the Federal Confidentiality of Alcohol and Drug Abuse Patient Records regulations: The Federal rules restrict any use of the information to criminally investigate or prosecute any alcohol or drug abuse patient.[facility] the event this information is protected by the Federal Confidentiality of Alcohol and Drug Abuse Patient Records regulations: The Federal rules restrict any use of the information to criminally investigate or prosecute any alcohol or drug abuse patient.[facility] HospitalIn the event this information is protected by the Federal Confidentiality of Alcohol and Drug Abuse Patient Records regulations: The Federal rules restrict any use of the information to criminally investigate or prosecute any alcohol or drug abuse patient.[facility] Hospital[facility] the event this information is protected by the Federal Confidentiality of Alcohol and Drug Abuse Patient Records regulations: The Federal rules restrict any use of the information to criminally investigate or prosecute any alcohol or drug abuse patient.[facility] HospitalIn the event this information is protected by the Federal Confidentiality of Alcohol and Drug Abuse Patient Records regulations: The Federal rules restrict any use of the information to criminally investigate or prosecute any alcohol or drug abuse patient.[facility] HospitalIn the event this information is protected by the Federal Confidentiality of Alcohol and Drug Abuse Patient Records regulations: The Federal rules restrict any use of the information to criminally investigate or prosecute any alcohol or drug abuse patient.[facility] HospitalIn the event this information is protected by the Federal Confidentiality of Alcohol and Drug Abuse Patient Records regulations: The Federal rules restrict any use of the information to criminally investigate or prosecute any alcohol or drug abuse patient.[facility] HospitalIn the event this information is protected by the Federal Confidentiality of Alcohol and Drug Abuse Patient Records regulations: The Federal rules restrict any use of the information to criminally investigate or prosecute any alcohol or drug abuse patient.[facility] Hospital[facility] the event this information is protected by the Federal Confidentiality of Alcohol and Drug Abuse Patient Records regulations: The Federal rules restrict any use of the information to criminally investigate or prosecute any alcohol or drug abuse patient.[facility] HospitalIn the event this information is protected by the Federal Confidentiality of Alcohol and Drug Abuse Patient Records regulations: The Federal rules restrict any use of the information to criminally investigate or prosecute any alcohol or drug abuse patient.[facility] HospitalIn the event this information is protected by the Federal Confidentiality of Alcohol and Drug Abuse Patient Records regulations: The Federal rules restrict any use of the information to criminally investigate or prosecute any alcohol or drug abuse patient.[facility] HospitalIn the event this information is protected by the Federal Confidentiality of Alcohol and Drug Abuse Patient Records regulations: The Federal rules restrict any use of the information to criminally investigate or prosecute any alcohol or drug abuse patient.[facility] HospitalIn the event this information is protected by the Federal Confidentiality of Alcohol and Drug Abuse Patient Records regulations: The Federal rules restrict any use of the information to criminally investigate or prosecute any alcohol or drug abuse patient.[facility] HospitalIn the event this information is protected by the Federal Confidentiality of Alcohol and Drug Abuse Patient Records regulations: The Federal rules restrict any use of the information to criminally investigate or prosecute any alcohol or drug abuse patient.[facility] HospitalIn the event this information is protected by the Federal Confidentiality of Alcohol and Drug Abuse Patient Records regulations: The Federal rules restrict any use of the information to criminally investigate or prosecute any alcohol or drug abuse patient.[facility] HospitalIn the event this information is protected by the Federal Confidentiality of Alcohol and Drug Abuse Patient Records regulations: The Federal rules restrict any use of the information to criminally investigate or prosecute any alcohol or drug abuse patient.[facility] HospitalIn the event this information is protected by the Federal Confidentiality of Alcohol and Drug Abuse Patient Records regulations: The Federal rules restrict any use of the information to criminally investigate or prosecute any alcohol or drug abuse patient.[facility] HospitalIn the event this information is protected by the Federal Confidentiality of Alcohol and Drug Abuse Patient Records regulations: The Federal rules restrict any use of the information to criminally investigate or prosecute any alcohol or drug abuse patient.[facility] Reason for Visit (unrecogniz ed section [...] c/o UNCONTROLLED leakage - STOP ICS X2 [id number] Patient Care team informatio n (unrecognized section and content) Medical Health Researcher Relationship Specialty Start Date End Date RicAgutso casillas [address] [place] [address] [place] [address] PCP - General 05/17/23 Lisa Porras MD [address] [place] [address] Referring Urology 05/11/23 Medical Health Researcher Relationship Specialty Start Date End Date [facility] [address] [place] [address] [place] [address] PCP - General 05/17/23 Lisa Porras MD [address] [place] [address] Referring Urology 05/11/23 Medical Health Researcher Relationship Specialty Start Date End Date Ricapurvamundo Agusto [address] [place] [place] [address] PCP - General 05/17/23 Lisa Porras MD [address] [place] [phone] Referring Urology 05/11/23 Medical Health Researcher Relationship Specialty Start Date End Date RicapurvaAgusto casillas [address] [facility] [place] [address] PCP - General 05/17/23 Lisa Porras MD [address] [place] [phone] Referring Urology 05/11/23 Medical Health Researcher Relationship Specialty Start Date End Date Agusto Olmstaed, EXECUTIVE DIRECTOR OF NURSING-WEBSPHERE ARCHITECT [address] [place] [address] PCP - General Nurse Practitioner 11/10/22 Medical Health Researcher Relationship Specialty Start Date End Date RicapurvaAgusto casillas [address] [place] [place] [address] PCP - General 05/17/23 Lisa Porras MD [address] [address] Referring Urology 05/11/23 Medical Health Researcher Relationship Specialty Start Date End Date Agusto Olmstead [address] [place] [address] PCP - General 05/17/23 Lisa Porras MD [address] [place] [address] Referring Urology 05/11/23 Team Status: Active Member Role Status Dates Sumi Lentz APRN FOOD SERVICE MANAGER-C Primary Care Provider Active Team Status: Inactive Member Role Status Dates Eli Sprague MD Attending Provider Active Star t: August 01, 2023 End: August 01, 2023 Medical Health Researcher Relationship Specialty Start Date End Date Agusto Olmstead APRN-WEBSPHERE ARCHITECT [address] [place] [address] PCP - General Nurse Practitioner 11/10/22 Medical Health Researcher Relationship Specialty Start Date End Date Agusto Olmstead EXECUTIVE DIRECTOR OF NURSING-WEBSPHERE ARCHITECT [address] [place] [address] PCP - General Nurse Practitioner 11/10/22 Medical Health Researcher Relationship Specialty Start Date End Date RicapurvaAgusto casillas [address] [place] [address] PCP - General 05/17/23 Lisa Porras MD [address] [place] [address] Referring Urology 05/11/23 Agusto Olmstead [address] [place] [address] Referring 01/04/24 Medical Health Researcher Relationship Specialty Start Date End Date Agusto Olmstead [address] [place] [address] PCP - General 05/17/23 Lisa Porras MD [address] [place] [address] Referring Urology 05/11/23 Agusto Olmstead [address] [place] [address] Referring 01/04/24 Medical Health Researcher Relationship Specialty Start Date End Date Agusto Olmstead [address] [place] [address] PCP - General 05/17/23 Lisa Porras MD [address] [place] [address] Referring Urology 05/11/23 Agusto Olmstead [address] [place] [address] Referring 01/04/24 Medical Health Researcher Relationship Specialty Start Date End Date Agusto Olmstead [address] [place] [address] PCP - General 05/17/23 Lisa Porras MD [address] [place] [address] Referring Urology 05/11/23 Agusto Olmstead [address] [place] [address] Referring 01/04/24 Medical Health Researcher Relationship Specialty Start Date End Date Agusto Olmstead [address] [place] [address] PCP - General 05/17/23 Lisa Porras MD [address] [place] [address] Referring Urology 05/11/[address] [place] [address] Referring 01/04/24 Medical Health Researcher Relationship Specialty Start Date End Date Agusto Olmstead [address] [place] [address] PCP - General 05/17/23 Lisa Porras MD [address] [place] [address] Referring Urology 05/11/23 Agusto Olmstead [address] [place] [address] Referring 01/04/24 Medical Health Researcher Relationship Specialty Start Date End Date Agusto Olmstead [address] [place] [address] PCP - General 05/17/23 Lisa Porras MD [address] [place] [address] Referring Urology 05/11/[address] [place] [address] Referring 01/04/24 Medical Health Researcher Relationship Specialty Start Date End Date Agusto Olmstead [address] [place] [address] PCP - General 05/17/23 Lisa Porras MD [address] [place] [address] Referring Urology 05/11/23 Agusto Olmstead [address] [place] [address] Referring 01/04/24 Goals (unrecognized section and content) [...] BE BASED ON THE PRIMARY CLINICAL RECORDS. [facility]. provides no warranty or guarantee of the accuracy or completeness of information in this document.
--- NOTE | 2024-04-26 06:33 | XR_ITS ---
The [address] [address] Patient Name: AISLINN CARNES MRN: [id number] date: 1960 Sex: F Assigned Patient Location: ICU Current Patient Location: ICU Accession/Order Number: [id number] Exam Date: 04/26/2024 06:48 Report Date: 04/26/2024 07:08 At the request of: LANDON MAXWELL Procedure: XR abdomen 1V EXAMINATION: XR abdomen 1V HISTORY: Kidney Stone, Hematuria COMPARISON: CT abdomen pelvis 02/13/2023 FINDINGS: KIDNEY/URETER - RIGHT: No visible renal or ureteral calcifications. KIDNEY/URETER - LEFT: Large calcification versus oral contrast within bowel projecting over the kidney and proximal ureter. PELVIS: Stable small calcification within lower left pelvis. BOWEL: No abnormal dilation or deviation. BONES: No acute abnormality. OTHER: Negative. No abnormal gaseous collections. XR/XR abdomen 1V IMPRESSION: 1. Evaluation is limited due to oral contrast within the small bowel. There may be a large stone within the left kidney/renal pelvis or this could represent dense contrast within small bowel. Follow-up abdominal radiograph after clearing of small bowel contrast is recommended or consider CT abdomen pelvis without contrast at this time. Electronically authenticated by: THANH DELVALLE Date: 04/26/2024 07:08
[2024-04-26 06:40] LABS: Anion Gap 15.2; Carbon Dioxide 18.9 mmol/L (21.0-32.0)
[2024-04-26 06:41] LABS: Potassium 6.1 mmol/L (3.5-5.1)
[2024-04-26 07:27] LABS: Glucometer 214 mg/dL (74-106)
[2024-04-26] MEDS: LEVOFLOXACIN IN DEXTROSE 5 % 750 MG/150 ML PREMIX 100 MG IV (07:33)
[2024-04-26 07:57] LABS: Anion Gap 16.4; BUN Creatinine Ratio 17.2; Calcium 7.9 mg/dL (8.5-10.1); Chloride 108 mmol/L (98-107); Estimated GFR (African America 26 (>=60); Estimated GFR (Non-African Ame 21 (>=60); Glucose 205 mg/dL (74-106); Potassium 5.4 mmol/L (3.5-5.1); Sodium 138 mmol/L (136-145)
--- NOTE | 2024-04-26 08:05 | CM.NOTE ---
Rounds made with Dr. Marr, continue IV fluids and antibiotics. No discharge today.
[2024-04-26] MEDS: INSULIN ASPART 300 UNIT/3 ML PEN SUBQ ×2 (08:33→12:37)
[2024-04-26] MEDS: FLUTICASONE PROPIONATE 50 MCG NASAL SPRAY 1 SPRAY NS (08:33)
[2024-04-26] MEDS: B COMPLEX/FOLIC ACID SOFTGEL CAPSULE 1 CAP PO (08:34)
[2024-04-26] MEDS: AMLODIPINE BESYLATE 5 MG TABLET PO (08:34)
[2024-04-26] MEDS: HEPARIN SODIUM (PORCINE) 5,000 UNIT/ML VIAL 5000 UNIT SUBQ ×2 (08:34→21:17)
[2024-04-26] MEDS: CETIRIZINE HCL 10 MG TABLET PO (08:34)
[2024-04-26] MEDS: PREGABALIN 75 MG CAPSULE 150 MG PO ×3 (08:34→21:17)
[2024-04-26] MEDS: HYDROCODONE/ACET 5-325 MG TABLET 1 TAB PO ×2 (08:34→15:54)
[2024-04-26] MEDS: FERROUS SULFATE 325 MG TABLET PO (08:34)
--- NOTE | 2024-04-26 09:05 | P.HP_ITS ---
HPI H&P: HPI History of Present Illness Chief complaint: WEAKNESS UTI HYPERKALEMIA DEHYDRATION Narrative: Patient presented to the emergency room with increasing weakness. Found to have acute UTI as well as left lower lobe pneumonia. Acute renal failure with a creatinine 160% above baseline, significant hyperkalemia and hyponatremia. When I saw patient up in the intensive care unit, she was resting comfortably in bed she did have some cough throughout the evaluation. States she does feel little bit better after getting fluids but still significant weakness. Cough and shortness of breath with ambulation Opioid HPI Opioid Management Most Recent Pain and Opioid Data: Last Pain Scale 6 04/26/24 08:34 Last Pain Assessment 04/26/24 09:00 Last MAR Pain Assessment 04/26/24 08:34 Last ORT Total Score 0 04/26/24 03:34 Last ORT Risk Category Low Risk 04/26/24 03:34 Review of Systems ROS Status of ROS 10 or more systems reviewed and unremark able except as noted in history and below [facility] Medical History (Updated 04/26/24 @ 09:52 by Kapil Marr MD) Amputation of left great toe ?S98.112A - Complete traumatic amputation of left great toe, initial encounter (ICD-10) 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 ?N18.9 - Chronic kidney disease, unspecified (ICD-10) ?Z85.528 - Personal history of other malignant neoplasm of kidney (ICD-10) Neuropathy ?G62.9 - Polyneuropathy, unspecified (ICD-10) DM2 (diabetes mellitus, type 2) ?E11.9 - Type 2 diabetes mellitus without complications (ICD-10) Chronic renal insufficiency ?N18.9 - Chronic kidney disease, unspecified (ICD-10) Hyperglycemia due to diabetes mellitus ?E11.65 - Type 2 diabetes mellitus with hyperglycemia (ICD-10) Urinary tract infection ?N39.0 - Urinary tract infection, site not specified (ICD-10) HTN (hypertension) ?I10 - Essential (primary) hypertension (ICD-10) Stroke ?I63.9 - Cerebral infarction, unspecified (ICD-10) Lupus ?M32.9 - Systemic lupus erythematosus, unspecified (ICD-10) Arthritis ?M19.90 - Unspecified osteoarthritis, unspecified site (ICD-10) Fibromyalgia ?M79.7 - Fibromyalgia (ICD-10) Diabetes ?E11.9 - Type 2 diabetes mellitus without complications (ICD-10) Chronic kidney disease (CKD) ?N18.9 - Chronic kidney disease, unspecified (ICD-10) Neoplasm of kidney ?D49.519 - Neoplasm of unspecified behavior of unspecified kidney (ICD-10) Surgical History (Updated 01/10/24 @ 15:56 by Ashley Sanchez) Hx of neck surgery ?Z98.890 - Other specified postprocedural states (ICD-10) History of shoulder surgery ?Z98.890 - Other specified postprocedural states (ICD-10) History of hysterectomy ?Z90.710 - Acquired absence of both cervix and uterus (ICD-10) Family History (Updated 01/10/24 @ 15:58 by Ashley Sanchez) Brother Family history of CHF (congestive heart failure) Family history of myocardial infarction Father Family history of CHF (congestive heart failure) Family history of COPD (chronic obstructive pulmonary disease) Family history of myocardial infarction Sister Family history of cancer Grandmother Family history of cancer Family history of diabetes mellitus Social History (Updated 04/26/24 @ 04:43 by Vonnie Tijerina) Within the past year, how often did you have a drink containing alcohol: never Within the past year, how often did you have six or more drinks on one occasion: never Score interpretation: A score less than 3 is consistent with normal alcohol consumption. Smoking status: Never smoker Non-prescribed substance use: denies use Known occupational exposures/hazards: No Highest level of school completed/degree received: GED or equivalent Do you want help with school or training: No Are you now , , , , never or living with a partner: In a typical week, how many times do you talk on the telephone with family, friends, or neighbors: 3 or more times per week How often do you get together with friends or relatives: 3 or more times per week How often do you attend latter-day or temple services: never Do you belong to any clubs or organizations such as latter-day groups unions, fraternal or athletic groups, or school groups: no Total score: 1 Score interpretation: A score of less than or equal to 1 indicates the most socially isolated. Little interest or pleasure in doing things: not at all Feeling down, depressed, or hopeless: not at all Feel stressed/tense/nervous/anxious/difficulty sleeping: to some extent Life stressors: other Life stressor details: Personal health Gender Identity: female Meds Home Medications and Allergies Home Medications ?Medication ?Instructions ?Recorded ?Confirmed ?Type insulin lispro 100 unit/mL 1 sliding scale dose subcut QID 05/12/23 04/26/24 History subcutaneous pen pregabalin 150 mg capsule 150 mg PO Q8H 05/12/23 04/26/24 History hydrocodone 7.5 mg-acetaminophen 1 tab PO Q8H PRN pain 07/07/23 04/26/24 History 325 mg tablet ferrous sulfate 325 mg (65 mg 325 mg PO DAILY 01/10/24 04/26/24 History iron) tablet (FeroSul) insulin glargine 100 unit/mL (3 28 unit (0.28 mL) subcut QPM #0 mL 01/11/24 04/26/24 Rx mL) subcutaneous pen (Lantus Solostar U-100 Insulin) amlodipine 5 mg tablet 5 mg PO QD 01/18/24 04/26/24 History B-complex with vitamin C 1 cap PO DAILY 04/26/24 04/26/24 History (Support-500 capsule) cetirizine 10 mg tablet (24Hour 10 mg PO DAILY 04/26/24 04/26/24 History Allergy) fluticasone propionate 50 1 spray intranasal DAILY PRN 04/26/24 04/26/24 History mcg/actuation nasal allergies spray,suspension (24 Hour Allergy Relief) Allergies Allergy/AdvReac Type Severity Reaction Status Date / Time latex Allergy Unknown Verified 01/04/24 08:42 Exam Constitutional Vital Signs, click to edit/add: Last Vital Signs Temp 98.5 F 04/26/24 03:34 Pulse 78 04/26/24 08:00 Resp 13 04/26/24 07:40 BP 146/85 H 04/26/24 07:26 Pulse Ox 94 L 04/26/24 04:00 O2 Del Method Room Air 04/26/24 07:39 Documenting provider has reviewed patient's vital signs: yes Common normals: no apparent distress Respiratory Common normals: normal respiratory effort and no retractions Effort & inspection: tachypneic Auscultation: rhonchi and egophony left lower Cardio Common normals: regular rate and regular rhythm Results Labs Labs: Short CBC 04/26/24 Range/Units 01:00 WBC 12.5 H (4.0-11.0) 10^3/uL Hgb 11.9 L (12.0-16.0) g/dL Hct 36.8 (36.0-48.0) % Plt Count 304 (150-450) 10^3/uL BMP 04/26/24 04/26/24 04/26/24 01:00 05:30 07:27 Sodium 133 L 136 138 Potassium 6.8 H* 6.1 H* 5.4 H Chloride 103 108 H 108 H Carbon Dioxide 20.8 L 18.9 L 19.0 L BUN 43.0 H 43.0 H 40.0 H Creatinine 2.48 H 2.41 H 2.32 H Glucose 211 H 234 H 205 H Calcium 9.1 8.2 L 7.9 L Liver Function 04/26/24 Range/Units 01:00 Total Bilirubin 0.5 (0.2-1.0) mg/dL AST 11 L (15-37) U/L ALT 20 (14-59) U/L Alkaline Phosphatase 92 (46-116) U/L Albumin 2.9 L (3.4-5.0) g/dL Urine 04/25/24 Range/Units 23:55 Urine Color Yellow (YELLOW) Urine Clarity Clear (CLEAR) Urine pH 6.0 (5.0-9.0) Ur Specific [place] 1.020 (1.005-1.025) Urine Protein 100 A (NEG/TRACE) mg/dL Urine Glucose (UA) Negative (NEGATIVE) mg/dL Assessment and Plan Assessment and Plan (1) Acute dehydration: (2) Acute hyperkalemia: (3) Acute UTI (urinary tract infection): (4) Pneumonia: Plan Admission: Fever, tachycardia, respiratory distress, leukocytosis, hyponatremia, severe hyperkalemia, acute renal failure, hyperglycemia secondary to acute UTI, culture pending as well as left lower lobe pneumonia resulting in sepsis. Sepsis due to left lower lobe pneumonia with egophony as well as acute UTI- cultures for sputum and urine are pending. Continue with current antibiotic regiment. Acute renal failure-baseline creatinine of 1.58, admission creatinine of 2.48 but equal 160.0% above baseline. Continue with fluid resuscitation. Hyperkalemia with potassium greater than 6, she has received a dose of Lokelma overnight, will repeat 2 more doses today. Overall is improving. Hydration should improve as well Hyponatremia-secondary to all of the above, continue with fluid resuscitation DM-insulin sliding scale Hypertension-continue with home medications Iron deficiency anemia-monitor daily Diabetic peripheral neuropathy-continue with current medications Admission status: Patient admitted with sepsis with fever, tachycardia, respiratory distress, leukocytosis, acute renal failure secondary to left lower lobe pneumonia and acute UTI. Cultures pending. Medically necessary treatment will span 2 midnights. Inpatient status.
--- NOTE | 2024-04-26 09:25 | PC.NURSE ---
taken to med surg room 214 via wheelchair with belongings. report given to ms aguilera
[2024-04-26] MEDS: 0.9 % SODIUM CHLORIDE 1,000 ML 500 ML IV (09:47)
--- NOTE | 2024-04-26 10:20 | SWNOTE1 ---
SW met with pt to discuss dc needs. Pt is independent at home. Pt has a family member in room during assessment (possibly older grandchild). Pt voiced she has felt a little more weak.tired, but once her potassium is better she should be feeling better. She denied any concerns or needs at discharge at this time. SW to follow as needed. Important Message from Medicare reviewed and discussed with patient. Pt. verbalized understanding and signed the form. Original given to patient and copy placed in patient?s chart.
[2024-04-26 12:35] LABS: Glucometer 148 mg/dL (74-106)
[2024-04-26] MEDS: METOPROLOL SUCCINATE 50 MG TAB.ER.24H PO (17:15)
[2024-04-26 17:19] LABS: Glucometer 137 mg/dL (74-106)
[2024-04-26 20:34] LABS: Glucometer 122 mg/dL (74-106)
[2024-04-27] VITALS (10 sets, daily range): BP systolic 136–154; BP diastolic 65–88; PULSE 63–76; TEMP 36.6–37.1; O2SAT 93–97
[2024-04-27] MEDS: FLUTICASONE PROPIONATE 50 MCG NASAL SPRAY 1 SPRAY NS (00:17)
[2024-04-27] MEDS: HYDROCODONE/ACET 5-325 MG TABLET 1 TAB PO ×2 (00:18→11:44)
[2024-04-27] MEDS: CEFTRIAXONE 1,000 MG in 0.9 % SODIUM CHLORIDE 50 ML 100 MG IV (00:19)
[2024-04-27] MEDS: 0.9 % SODIUM CHLORIDE 1,000 ML 100 ML IV (04:27)
[2024-04-27] MEDS: PREGABALIN 75 MG CAPSULE 150 MG PO (05:31)
[2024-04-27 06:25] LABS: Basophils Percent Auto 0.6 % (0.2-2.0); Eosinophils Absolute Auto 0.2 10^3/uL (0.0-0.7); Eosinophils Percent Auto 2.5 % (0.9-7.0); Hematocrit 28.1 % (36.0-48.0); Hemoglobin 8.9 g/dL (12.0-16.0); Immature Granulocytes Abs Auto 0.04 10^3/uL (0.00-0.03); Immature Granulocytes Pct Auto 0.6 % (0.0-0.5); Lymphocytes Absolute Auto 2.2 10^3/uL (1.2-3.8); Lymphocytes Percent Auto 31.9 % (20.5-60.0); Mean Corpuscular HGB Conc 31.7 g/dL (29.9-35.2); Mean Corpuscular Hemoglobin 25.9 pg (26.7-34.0); Mean Corpuscular Volume 81.7 fL (81.0-99.0); Mean Platelet Volume 10.5 fL (9.5-13.5); Monocytes Absolute Auto 0.5 10^3/uL (0.3-0.8); Monocytes Percent Auto 7.4 % (1.7-12.0); Platelet Count 261 10^3/uL (150-450); Red Blood Count 3.44 10^6/uL (4.20-5.40); Red Cell Distribution Width 13.9 % (11.0-15.0); White Blood Count 6.9 10^3/uL (4.0-11.0)
[2024-04-27 06:41] LABS: Anion Gap 14.5; BUN Creatinine Ratio 14.6; Calcium 7.8 mg/dL (8.5-10.1); Chloride 113 mmol/L (98-107); Estimated GFR (African America 30 (>=60); Estimated GFR (Non-African Ame 25 (>=60); Glucose 97 mg/dL (74-106); Potassium 4.5 mmol/L (3.5-5.1); Sodium 143 mmol/L (136-145)
--- NOTE | 2024-04-27 07:21 | CT_ITS ---
The [address] [address] Patient Name: AISLINN CARNES MRN: [id number] date: 1960 Sex: F Assigned Patient Location: [place] Current Patient Location: [place] Accession/Order Number: [id number] Exam Date: 04/27/2024 09:48 Report Date: 04/27/2024 11:09 At the request of: SHAIKH CLARIBEL Procedure: CT abdomen pelvis wo con CT ABDOMEN AND PELVIS WITHOUT CONTRAST: 04/27/2024 9:48 AM EDT Clinical Data: hydronephrosis/renal calculus Comparison: 02/13/2023 Unenhanced helically acquired data per protocol. The lack of IV contrast material hampers evaluation of the viscera, for adenopathy, and of the vasculature. All CT scans at this facility use dose modulation, iterative reconstruction, and/or weight based dosing when appropriate to reduce radiation dose to as low as reasonably achievable. FINDINGS: LOWER THORAX: Fairly mild hypoventilatory changes. LIVER: No acute findings. SPLEEN: No acute findings. GB/BILIARY: Again, status post cholecystectomy. Mild prominence of the common duct but this again does taper unremarkably in the pancreatic head. PANCREAS: No acute findings. ADRENALS: No acute findings. KIDNEYS/URETERS: Right kidney is again smaller than the left. The left is developmentally unusually rotated. Interval significant right hydronephrosis and hydroureter through the UVJ. No distinct evidence of ureteral calculus. Interval resection of previously demonstrated large left lateral renal predominantly low density lesion. Interval significant left hydronephrosis and hydroureter through the UVJ. No ureteral calculi VESSELS: No AAA ABDOMINAL NODES: No obvious adenopathy. PELVIC NODES: No obvious adenopathy. BLADDER: Distended to 12 cm in z-axis. Margins are slightly lobular and thickened. REPRODUCTIVE: Again, status post hysterectomy. Neither ovary is seen as a distinct structure PERITONEUM: No free air. No free fluid. EXTRAPERITONEUM: No acute findings. BOWEL: No GI obstruction. Oral contrast or dense medication in the colon. Fair amount of ingested material in the stomach. Mild amount of fluid and ingested material in nondistended small bowel.. No focally thickened loop of bowel is apparent. BODY WALL: Again, small bilateral inguinal hernias containing fat but no bowel BONES: Chronic superior endplate deformity at L1 is unchanged. OTHER: None CT/CT abdomen pelvis wo con IMPRESSION: 1. Interval resection of previously demonstrated large left renal mass. 2. Interval significant bilateral hydronephrosis and hydroureter through both UVJs. No ureteral calculi. Etiology unknown. Perhaps this is secondary to a distended urinary bladder which measures 12 cm (on the prior study the bladder measured 8 cm). Perhaps repeat scanning after complete voiding would be useful. 3. Urinary bladder margins are slightly thickened. Question cystitis.. Electronically authenticated by: TAURUS MCGREGOR Date: 04/27/2024 11:09
[2024-04-27] MEDS: B COMPLEX/FOLIC ACID SOFTGEL CAPSULE 1 CAP PO (10:10)
[2024-04-27] MEDS: HEPARIN SODIUM (PORCINE) 5,000 UNIT/ML VIAL 5000 UNIT SUBQ (10:10)
[2024-04-27] MEDS: FERROUS SULFATE 325 MG TABLET PO (10:10)
[2024-04-27] MEDS: CETIRIZINE HCL 10 MG TABLET PO (10:11)
[2024-04-27] MEDS: AMLODIPINE BESYLATE 5 MG TABLET PO (10:11)
[2024-04-27] MEDS: METOPROLOL SUCCINATE 50 MG TAB.ER.24H PO (10:11)
[2024-04-27] MEDS: INSULIN ASPART 300 UNIT/3 ML PEN SUBQ (11:47)
[2024-04-27 11:57] LABS: Glucometer 163 mg/dL (74-106)
--- NOTE | 2024-04-27 12:08 | P.DS_ITS ---
DS: Providers Provider Date of admission: 04/26/24 03:25 Primary care physician: Latosha Olmstead NP Admitting clinician: Kapil Marr Attending physician on admission: Kapil Marr Attending physician on discharge: Shaikh Leon Discharging clinician: Shaikh Leon Anticipated date of discharge: 04/27/24 DS: Diagnosis Discharge Diagnosis (1) Acute UTI (urinary tract infection): Assessment and plan: Presented with urinary tract infection. Patient has improved considerably overnight with IV hydration and IV Rocephin/Levaquin. She is medically stable for discharge on oral Ceftin. Sepsis ruled out. Hemodynamically stable and has no evidence of sepsis as initially suspected upon admission (2) Acute dehydration: Assessment and plan: Presented with dehydration, resulting in acute kidney injury and hyperkalemia. Her renal function has improved overnight with IV hydration with resolution of hyperkalemia. She is tolerating oral diet and is medically stable for discharge. (3) Acute hyperkalemia: Assessment and plan: Due to acute kidney injury. Resolved. Monitor as outpatient as needed. (4) ANATOLIY (acute kidney injury): Assessment and plan: Baseline creatinine is 1.5-1.7. Presented with serum creatinine of 2.48 Likely prerenal and secondary to dehydration along with possible postobstructive component for which she is scheduled for surgery as outpatient at [facility]. Her renal function has improved but is not back to its baseline. However she has adequate oral intake and is medically stable for discharge. (5) Pneumonia: Assessment and plan: Infiltrate noted on chest x-ray with no significant respiratory complaints. She was treated with Levaquin and Rocephin for UTI which would adequately cover community-acquired pneumonia. I will discharge her on oral Ceftin. Qualifiers: Pneumonia type: due to unspecified organism Laterality: left Lung location: lower lobe of lung Qualified Code(s): J18.9 - Pneumonia, unspecified organism (6) Chronic kidney disease (CKD): Assessment and plan: Chronic kidney disease stage III with baseline creatinine of 1.5-1.7. Likely secondary to partial nephrectomy and type 2 diabetes Qualifiers: Chronic kidney disease stage: stage 3 (moderate) Chronic kidney disease stage 3 subtype: stage 3a (GFR 45-59) Qualified Code(s): N18.31 - Chronic kidney disease, stage 3a (7) DM2 (diabetes mellitus, type 2): Assessment and plan: Continue with home medications. Blood glucose ordered. 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 Continue with home medications. Qualifiers: Hypertension type: primary hypertension Qualified Code(s): I10 - Essential (primary) hypertension (9) Bilateral hydronephrosis: Assessment and plan: Bilateral hydronephrosis, chronic. She is scheduled for outpatient surgery at [facility]. DS: Summary Hospital Course Hospital Course: 63-year-old female who presented with generalized weakness, anorexia. Workup in ER was consistent with urinary tract infection, acute kidney injury, hyperkalemia, dehydration and possibly left lower lobe pneumonia. She was start ed on IV hydration and treated with IV Rocephin and Levaquin for UTI/pneumonia. Initially suspected to have sepsis but subsequently ruled out. Patient was admitted as inpatient given her presentation as we anticipated her to require inpatient treatment over 2-3 midnights but improved remarkably well and sooner than anticipated. She is medically stable for discharge on oral antibiotic. She will need follow-up with urology as outpatient along with PCP in 1 to 2 weeks. Status at Discharge Functional status at discharge: independent ambulation Overall status at discharge: patient is back to baseline Time Spent with Patient Time attestation: Total time spent providing and/or coordinating discharge services: Time spent: greater than 30 minutes Exam Constitutional Vital Signs, click to edit/add: Last Vital Signs Temp 97.9 F 04/27/24 11:23 Pulse 75 04/27/24 11:23 Resp 16 04/27/24 11:23 BP 154/88 H 04/27/24 11:23 Pulse Ox 95 04/27/24 11:23 O2 Del Method Room Air 04/27/24 11:23 Documenting provider has reviewed patient's vital signs: yes Common normals: no apparent distress and oriented x3 General appearance: cooperative Respiratory Common normals: normal respiratory effort and clear to auscultation bilaterally Effort & inspection: able to speak in complete sentences Auscultation: clear to auscultation bilaterally Cardio Common normals: regular rate, S1 normal heart sound and S2 normal heart sound Rate: regular rate Heart sounds: S1 normal and S2 normal GI Common normals: Normal to inspection, nondistended, normoactive bowel sounds pre sent, soft to palpation, non-tender and no hepatosplenomegaly Palpation: soft and no hepatosplenomegaly Extremity Common normals: no clubbing, cyanosis or edema Neuro Common normals: oriented x3, moves all extremities and no focal motor deficits Psych Common normals: mental status grossly normal, denies hallucinations, denies homicidal ideation and denies suicidal ideation DS: Data Data Completed and Pending Labs on day of discharge: Labs from last 24 hours 04/27/24 04/27/24 04/26/24 11:46 05:33 20:33 WBC 6.9 RBC 3.44 L Hgb 8.9 L Hct 28.1 L MCV 81.7 MCH 25.9 L MCHC 31.7 RDW 13.9 Plt Count 261 MPV 10.5 Neut % (Auto) 57.0 Lymph % (Auto) 31.9 [place] % (Auto) 7.4 Eos % (Auto) 2.5 Baso % (Auto) 0.6 Neut # (Auto) 4.0 Lymph # (Auto) 2.2 [place] # (Auto) 0.5 Eos # (Auto) 0.2 Baso # (Auto) 0.0 Abs Immat Gran (auto) 0.04 H Imm/Tot Granulo (auto) 0.6 H Sodium 143 Potassium 4.5 Chloride 113 H Carbon Dioxide 20.0 L Anion Gap 14.5 BUN 29.0 H Creatinine 1.99 H Est GFR ( Amer) 30 L Est GFR (Non-Af Amer) 25 L BUN/Creatinine Ratio 14.6 Glucose 97 Calcium 7.8 L POC Glucose 163 H 122 H 04/26/24 04/26/24 17:14 12:34 WBC RBC Hgb Hct MCV MCH MCHC RDW Plt Count MPV Neut % (Auto) Lymph % (Auto) [place] % (Auto) Eos % (Auto) Baso % (Auto) Neut # (Auto) Lymph # (Auto) [place] # (Auto) Eos # (Auto) Baso # (Auto) Abs Immat Gran (auto) Imm/Tot Granulo (auto) Sodium Potassium Chloride Carbon Dioxide Anion Gap BUN Creatinine Est GFR ( Amer) Est GFR (Non-Af Amer) BUN/Creatinine Ratio Glucose Calcium POC Glucose 137 H 148 H Discharge Plan Discharge Disposition: Home, Self-Care Discharge Medications: New cefuroxime axetil 250 mg tablet 250 mg PO BID 7 Days Qty: 14 0RF Continued insulin lispro 100 unit/mL insulin pen 1 sliding scale dose SUBCUT QID pregabalin 150 mg capsule 150 mg PO Q8H ferrous sulfate [FeroSul] 325 mg (65 mg iron) tablet 325 mg PO DAILY insulin glargine [Lantus Solostar U-100 Insulin] 100 unit/mL (3 mL) insulin pen 28 unit subcut QPM Qty: 0 0RF hydrocodone-acetaminophen 7.5-325 mg tablet 1 tab PO Q8H PRN (Reason: pain) amlodipine 5 mg Tablet 5 mg PO QD B-complex with vitamin C [Support-500] Capsule 1 cap PO DAILY cetirizine [24Hour Allergy] 10 mg tablet 10 mg PO DAILY fluticasone propionate [24 Hour Allergy Relief] 50 mcg/actuation spray,suspension 1 spray intranasal DAILY PRN (Reason: allergies) Rx Instructions: administer into each nostril metoprolol succinate 50 mg tablet extended release 24 hr 50 mg PO .qd Activity: increase activity as tolerated Diet: advance to your usual diet Print Language: Georgian Forms: Portal Instructions Follow Up Appointments: f/u with PCP in 1-2 weeks
--- NOTE | 2024-04-29 13:44 | CM.DCFOLLOWU ---
1st attempt 04/29/24, no answer
--- NOTE | 2024-05-01 14:39 | CM.DCFOLLOWU ---
2nd attempt 05/01/24, no answer
--- NOTE | 2024-05-02 15:46 | CM.DCFOLLOWU ---
3rd attempt 05/02/24, no answer
== END 2024-04-27 13:21 | disposition home or self-care (01) | DRG 689 ==
LOC: ER 04-26 03:25 → ICU 04-26 06:19 → MS 04-26 09:29
PROVIDERS: Family Medicine; Registered Nurse; Admitting Provider Internal Medicine; Emergency Provider Internal Medicine; PCP Nurse Practitioner; Visit Provider Internal Medicine
DX: N39.0 Urinary tract infection, site not specified (principal); J18.9 Pneumonia, unspecified organism; N17.9 Acute kidney failure, unspecified; E87.1 Hypo-osmolality and hyponatremia; E87.5 Hyperkalemia; E86.0 Dehydration; E11.22 Type 2 diabetes mellitus with diabetic chronic kidney disease; N18.31 Chronic kidney disease, stage 3a; I12.9 Hypertensive chronic kidney disease with stage 1 through stage 4 chronic kidney disease, or unspecified chronic kidney disease; N13.30 Unspecified hydronephrosis; E11.42 Type 2 diabetes mellitus with diabetic polyneuropathy; M32.9 Systemic lupus erythematosus, unspecified; D50.9 Iron deficiency anemia, unspecified; M79.7 Fibromyalgia; B95.1 Streptococcus, group B, as the cause of diseases classified elsewhere; Z79.4 Long term (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; Z86.73 Personal history of transient ischemic attack (TIA), and cerebral infarction without residual deficits; Z87.440 Personal history of urinary (tract) infections; Z90.710 Acquired absence of both cervix and uterus; Z85.528 Personal history of other malignant neoplasm of kidney; Z98.890 Other specified postprocedural states; Z79.899 Other long term (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; Z90.5 Acquired absence of kidney
CPT/HCPCS: 36415; 71045; 74018; 74176; 80048; 80053; 81001; 82948; 83605; 84484; 85025; 87040; 87086; 87150; 93005; 94640; 94761; 96361; 96365; 96366; 96367; 96372; 96375; 99285; J0456; J0696; J1644; J1817; J2405

== ENCOUNTER 2024-05-08 16:34 | Emergency (ER) | payer MEDICARE, SELFPAY ==
[2024-05-08 16:47] VITALS: BP 156/99; PULSE 88; TEMP 37.8; O2SAT 98; BMI 23.4
[2024-05-08 16:48] VITALS: BP 156/99
[2024-05-08 16:55] VITALS: PULSE 84
[2024-05-08 16:56] VITALS: PULSE 84
--- NOTE | 2024-05-08 16:57 | ECG_ITS ---
The 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
--- OUTSIDE RECORDS SUMMARY | 2024-05-08 16:59 | XMS_ITS | CCD ---
Author Organization [facility] Care Team Providers Care Health Services Coordinator Name Role Phone Pcp, No Primary Care Provider Unavailisidra e AGUSTO OLMSTEAD Primary Care Physician [phone] ZaRonan russoyanet Unavailable AICABEL, STANDPIPE TENDER AGUSTO Attending Unavailable AICHHOLZ, STANDPIPE TENDER AGUSTO Consulting Unavailable AICHHOLZ, STANDPIPE TENDER AGUSTO Admitting Unavailable AICHHOLZ, STANDPIPE TENDER AGUSTO Primary Care Unavailable RAMON HUNTLEY Attending Unavailable RAMON HUNTLEY Admitting Unavailable REQUEST, DR DANNIE LISTED Primary Care Unavaila georgi DELVALLE, DR THANH García Consulting Unavailable HIGHLANDERRAMON Consulting Unavailable AICHHOLZ, STANDPIPE TENDER AGUSTO Primary Care Unavailable RAMON HUNTLEY Admitting Unavailable RAMON HUNTLEY Attending Unavailable AICHHOLZ, STANDPIPE TENDER AGUSTO Primary Care Unavailable MAYLINWARIN, AMADO H Consulting Unavailable FAWWAD, AMADO H Admitting Unavailable FAWWAD, AMADO H Attending Unavailable AICHHOLZ, STANDPIPE TENDER AGUSTO Consulting Unavailable AICHHOLZ, STANDPIPE TENDER AGUSTO Admitting Unavailable AICHHOLZ, STANDPIPE TENDER AGUSTO Attending Unavailable AICHHOLZ, STANDPIPE TENDER AGUSTO Primary Care Unavailable RAMON HUNTLEY Attending Unavailable AICHHOLZ, STANDPIPE TENDER AGUSTO Primary Care Unavailable RAMON HUNTLEY Admitting Unavailable BHARAT, DR NUBIA Carlos Consulting Unavailable RAMON HUNTLEY Consulting Unavailable AICHHOLZ, STANDPIPE TENDER AGUSTO Primary Care Unavailable BHARAT, DR NUBIA Carlos Consulting Unavailable CAMMIE SEGURA Admitting Unavailable CAMMIE SEGURA Attending Unavailable CAMMIE SEGURA Consulting Unavailable AICHHOLZ, STANDPIPE TENDER AGUSTO Primary Care Unavailable AICHHOLZ, STANDPIPE TENDER AGUSTO Attending Unavailable AICHHOLZ, STANDPIPE TENDER AGUSTO Admitting Unavailable BHARAT, DR NUBIA Carlos Consulting Unavailable AICHHOLZ, STANDPIPE TENDER AGUSTO Consulting Unavailable AICHHOLZ, STANDPIPE TENDER AGUSTO Primary Care Unavailable COLTON, CAMMIE Admitting Unavailable COLTON, CAMMIE Attending Unavailable COLTON, CAMMIE Consulting Unavailable AICHHOLZ, STANDPIPE TENDER AGUSTO Primary Care Unavailable AICHHOLZ, STANDPIPE TENDER AGUSTO Attending Unavailable AICHHOLZ, STANDPIPE TENDER AGUSTO Consulting Unavailable AICHHOLZ, STANDPIPE TENDER AGUSTO Admitting Unavailable AICHHOLZ, STANDPIPE TENDER AGUSTO Primary Care Unavailable BHARAT, DR NUBIA Carlos Consulting Unavailable COLTON, CAMMIE Admitting Unavailable COLTON, CAMMIE Attending Unavailable COLTON, CAMMIE Consulting Unavailable AICHHOLZ, STANDPIPE TENDER AGUSTO Primary Care Unavailable ZIEBER, DR THANH García Consulting Unavailable HIGHLANDER, PETER D Attending Unavailable HIGHLANDER, PETER D Admitting Unavailable HIGHLANDER, PETER D Consulting Unavailable AICHHOLZ, STANDPIPE TENDER AGUSTO Primary Care Unavailable FOSTER ., DR PAGE Admitting Unavailable FOSTER ., DR PAGE Attending Unavailable FOSTER ., DR PAGE Consulting Unavailable ZIEBER, DR THANH García Consulting Unavailable HIGHLANDER, PETER D Admitting Unavailable AICHHOLZ, STANDPIPE TENDER AGUSTO Primary Care Unavailable ZIEBER, DR THANH García Consulting Unavailable HIGHLANDER, PETER D Attending Unavailable HIGHLANDER, PETER D Consulting Unavailable AICHHOLZ, STANDPIPE TENDER AGUSTO Primary Care Unavailable AICHHOLZ, STANDPIPE TENDER AGUSTO Attending Unavailable AICHHOLZ, STANDPIPE TENDER AGUSTO Consulting Unavailable AICHHOLZ, STANDPIPE TENDER AGUSTO Admitting Unavailable ZIEBER, DR THANH García Consulting Unavailable AICHHOLZ, STANDPIPE TENDER AGUSTO Primary Care Unavailable ZIEBER, DR THANH García Consulting Unavailable HIGHLANDER, PETER D Attending Unavailable HIGHLANDER, PETER D Admitting Unavailable HIGHLANDER, PETER D Consulting Unavailable AICHHOLZ, STANDPIPE TENDER AGUSTO Primary Care Unavailable ZIEBER, DR THANH García Consulting Unavailable COLTON, CAMMIE Admitting Unavailable COLTON, CAMMIE Attending Unavailable COLTON, CAMMIE Consulting Unavailable RAQUEL DERAS Admitting Unavailable WANDY .RAQUEL Attending Unavailable KASIE CANDELARIO Consulting Unavailable REQUEST, DR PANDEY LISTED Primary Care Unavaila georgi SABA .RAQUEL Consulting Unavailable LYLE MATIAS Consulting Unavailable AICHHOLZ, STANDPIPE TENDER AGUSTO Primary Care Unavailable HAY ., DR CARMONA Admitting Unavailable HAY ., DR CARMONA Attending Unavailable HAY ., DR CARMONA Consulting Unavailable TONY LUO Consulting Unavailable NUBIA BATEMAN Consulting Unavailable AICHHOLZ, STANDPIPE TENDER AGUSTO Primary Care Unavailable HIGHLANDER, PETER D Admitting Unavailable HIGHLANDER, PETER D Attending Unavailable HIGHLANDER, RAMON Tillman Admitting Unavailable AICHHOLZ, STANDPIPE TENDER AGUSTO Primary Care Unavailable HIGHLANDER, RAMON Tillman Attending Unavailable HIGHLANDER, RAMON Tillman Admitting Unavailable AICHHOLZ, STANDPIPE TENDER AGUSTO Primary Care Unavailable ZIIMTIAZ, DR THANH García Consulting Unavailable HIGHLANDER, RAMON Tillman Attending Unavailable HIGHLANDER, RAMON Tillman Consulting Unavailable HIGHLANDER, RAMON D Admitting Unavailable AICHHOLZ, STANDPIPE TENDER AGUSTO Primary Care Unavailable HIGHLANDER, RAMON Tillman Attending Unavailable HIGHLANDER, RAMON Tillman Attending Unavailable HIGHLANDER, RAMON D Admitting Unavailable REQUEST, NONE LISTED Primary Care Unavaila ble HIGHLANDER, RAMON Tillman Admitting Unavailable AICHHOLZ, STANDPIPE TENDER AGUSTO Primary Care Unavailable HIGHLANDER, RAMON Tillman Attending Unavailable HIGHLANDER, RAMON Tillman Admitting Unavailable AICHHOLZ, STANDPIPE TENDER AGUSTO Primary Care Unavailable HIGHLANDER, RAMON Tillman [...] Unavailable SMALLWOOD, REJI FLORES Consulting Unavailable AICHHOLZ, STANDPIPE TENDER AGUSTO Primary Care Unavailable WENHAM, DR NUBIA Carlos Consulting Unavailable CAMMIE SEGURA Admitting Unavailable CAMMIE SEGURA Attending Unavailable CAMMIE SEGURA Consulting Unavailable HIGHLANDER, RAMON D Admitting Unavailable AICHHOLZ, STANDPIPE TENDER AGUSTO Primary Care Unavailable ADELIA, DR THANH García Consulting Unavailable WILLYANDER, RAMON Tillman Attending Unavailable WILLYANDER, RAMON Tillman Consulting Unavailable Fitt, Brigette Unavailable Map, Tamia Unavailable Lue MD, Lisa M Unavailable Aysha Agusto Primary Care Provider [phone] Agusto Lamb Primary Care Provider Lisa Porras MD Unavailable TorHermilaSumi Primary Care Unavailable Agusto Olmstead Attending Unavailable Agusto Olmstead Admitting Unavailable Lue, Lisa MIrina Referring Unavailable Lue, Lisa M. Admitting Unavailable Lue, Lisa MIrina Attending Unavailable CATALINAPROMISE CURIEL Attending Unavailab le CATALINA, PROMISE Rodriguez Admitting Unavailab le CATALINA, PROMISE Rodriguez Attending Unavailab le CATALINA, PROMISE HEIDY E Admitting Unavailab le CATALINA, PROMISE Rodriguez Attending Unavailab le CATALINA, PROMISE ONEILLNICHASE Rodriguez Admitting Unavailab le CATALINA, PROMISE Rodriguez Attending Unavailab brayden CATALINA, PROMISE Rodriguez Attending Unavailab Lisa Anders Attending Unavailable Lisa Porras Attending Unavailable Lisa Porras Attending Unavailable PROMISE ARNOLD Attending Unavailab le AICHAGUSTO CASILLAS Attending Unavailable PROMISE ARNOLD Attending Unavailab Lisa Anders Referring Unavailable LuLisa rodriguez Attending Unavailable PROMISE ARNOLD Attending Unavailab le RICHAGUSTO CASILLAS Attending Unavailable Richmundo Agusto Primary Care Provider Aysha, Agusto Unavailable TAURUS BALLARD Attending Unavailable ABOUASSALY, TAURUS Attending Unavailable TAURUS BALLARD Attending Unavailable MADINAALYTAURUS Admitting Unavailable Aichholz, Agusto Primary Care Provider Unavailabl e Aichholz, Agusto Unavailable Unavailable AICHHOLZ, AGUSTO Attending Unavailable AICHHOLZ, AGUSTO Attending Unavailable AICHHOLZ, AGUSTO Attending Unavailable AICHHOLZ, AGUSTO Attending Unavailable AICHHOLJosue, AGUSTO Attending Unavailable SWETA LI Attending Unavailable AICHHOLZ, AGUSTO J Referring Unavailable AICHHOLZ, AGUSTO J Primary Care Unavailable VERHOFF, SWETA Pereira Attending Unavailable AICHHOLZ, AGUSTO J Referring Unavailable AICHHOLZ, AGUSTO J Primary Care Unavailable PEDRO, ZACKERY E Admitting Unavailable PEDRO, ZACKERY E Attending Unavailable AICHHOLZ, AGUSTO J Referring Unavailable AICHHOLZ, AGUSTO J Primary Care Unavailable PEDRO, ZACKERY E Attending Unavailable PEDRO, ZACKERY E Referring Unavailable AICHHOLZ, AGUSTO J Primary Care Unavailable JYOTHI SHELTON Attending Unavailable AICHHOLZ, AGUSTO J Primary Care Unavailable VERHOFFSWETA Attending Unavailable AICHHOLZ, AGUSTO J Referring Unavailable AICHHOLZ, AGUSTO J Primary Care Unavailable VERHOFF, SWETA N Referring Unavailable AICHHOLZ, AGUSTO J Primary Care Unavailable PEDRO, ZACKERY E Admitting Unavailable PEDOR, ZACKERY E Attending Unavailable AICHHOLZ, AGUSTO J Referring Unavailable AICHHOLZ, AGUSTO J Primary Care Unavailable PEDRO, ZACKERY E Attending Unavailable PDERO, ZACKERY E Referring Unavailable AICHHOLZ, AGUSTO J Primary Care Unavailable PEDRO, ZACKERY E Admitting Unavailable PEDRO, ZACKERY Rodriguez Attending Unavailable PEDRO, ZACKERY E Referring Unavailable AICHHOLZ, AGUSTO J Primary Care Unavailable PEDRO, ZACKERY Rodriguez Attending Unavailable PEDRO, ZACKERY E Referring Unavailable AICHHOLZ, AGUSTO J Primary Care Unavailable KATEY DIAMOND Attending Unavailable AICHHOLZ, AGUSTO J Primary Care Unavailable VERCE, SWETA Pereira Attending Unavailable AICHHOLZ, AGUSTO J Referring Unavailable AICHHOLZ, AGUSTO J Primary Care Unavailable VERCE, SWETA N Referring Unavailable AICHHOLZ, AGUSTO J Primary Care Unavailable CARMENZA NOLEN Attending Unavailable JUANITO BARNARD Attending Unavailable DENYICKCARMENZA Attending Unavailable ABOUASSALY, TAURUS Referring Unavailable ABOUASSALY, TAURUS Referring Unavailable ABOUASSALY, TAURUS Referring Unavailable Allergies Allergy Classification Reported Allergen(s) Allergy Type Date of Onset Reaction(s) Facility Latex (2 sources) Latex Substance Allergy 0 Rash [facility] (20 sources) Latex; Translations: [Latex] Allergy to substance 0 Eruption of skin (disorder), Rash [facility] Medications Current Medications Medication Drug Class(es) [...] on above: Take 2 tablets by mo [facility] every 6 hours as needed for pain. [...] rain th three times daily as needed. [id number] 200 actuat albuterol 0.09 mg/actuat metered dose [...] 1 ml denosumab 60 mg/ml prefilled syringe (12 sources) RANK Ligand Inhibitor denosumab (PROLIA) 60 [...] x 1 month, then 2x/week for maintainence, [id number], 153, cm, 05/03/23 9:52:00 EDT, Height/Length [...] ml insulin lispro 100 unt/ml pen injector (20 sources) Insulin Analog Start: 023 inject 1 [...] succinate 50 mg extended release oral tablet (15 sources) beta-Adrenergic Renetta Start: 11-08-2023 End: 01-20-2024 [...] day(s), # 30 tab(s), Refills(s) 6, Pharmacy: [id number], 153, cm, 09/21/22 8:48:00 EST, Height/Length [...] day(s), # 30 tab(s), Refills(s) 6, Pharmacy: [id number], 153, cm, 09/13/22 13:38:00 EST, Height/Length [...] three times daily. Take 1 capsule by [facility] two times a day for 30 days. 1000 ml sodium chloride 9 mg/ml injection (1 source) Start: End: 0.9 % sodium chloride (NACL 0.9%) infusion [...] Daily, # 30 tab(s), Refills(s) 11, Pharmacy: [id number], 153, cm, 02/22/23 8:55:00 EDT, Height/Length [...] sources) Dietary counseling and surveillance Episodic Asthma (20 sources) Unspecified asthma, uncomplicated; Translations: [Mild intermittent asthma] Onset: 09-06-2022 06-06-2023 Chronic Chronic kidney disease (20 sources) Chronic kidney disease stage 3; Translations: [Chronic kidney disease, stage 3 unspecified] Onset: 11-15-2021 09-08-2022 Chronic Chronic kidney disease (4 sources) Chronic kidney disease; Translations: [Stage 3b chronic kidney disease (HCC)] Onset: 05-01-2024 Chronic ulcer of skin (3 sources) Non-pressure [...] Onset: 01-17-2021 01-21-2021 Episodic Heart valve disorders (20 sources) Rheumatic mitral valve disease, unspecified; Translations: [...] Long-term current use of insulin; Translations: [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] Episodic Other circulatory disease (1 source) Other [...] Chronic Other diseases of bladder and urethra (20 sources) Bladder outlet obstruction; Translations: [Bladder-neck obstruction] Onset: 01-29-2021 01-29-2021 Chronic Other diseases of bladder and urethra (20 sources) Neurogenic bladder; Translations: [Neuromuscular dysfunction of bladder, unspecified] Onset: 06-06-2023 06-06-2023 Chronic Other diseases of bladder and urethra (1 source) Low compliance bladder; Translations: [Other neuromuscular dysfunction of bladder] 05-01-2024 Chronic Other diseases of bladder and urethra (1 source) Other neuromuscular dysfunction of bladder; Translations: [Bladder compliance low] Onset: 05-01-2024 Chronic Other diseases of kidney and ureters [...] Episodic Other diseases of kidney and ureters (3 sources) Hydronephrosis; Translations: [Other hydronephrosis] 01-12-2024 Episodic Other diseases of kidney and ureters (2 sources) Other hydronephrosis; Translations: [Other hydronephrosis] Onset: 01-12-2024 Episodic Other endocrine disorders (7 sources) Hyperparathyroidism; Translations: [Hyperparathyroidism , unspecified] Chronic Other lower respiratory disease (1 source) Nodule of lung; Translations: [Solitary pulmonary nodule] 03-27-2024 Episodic Other nervous system disorders (20 sources) Chronic pain due to injury; Translations: [Chronic pain due to trauma] Onset: 06-06-2023 06-06-2023 Chronic Other nervous system disorders (14 sources) Complex regional pain syndrome type I of right upper limb; Translations: [Complex regional pain syndrome I of right upper limb] Onset: 09-26-2017 09-07-2023 Chronic Other nervous system disorders (2 sources) Complex regional pain syndrome I of right upper limb; Translations: [Complex regional pain syndrome i of right upper limb] Onset: 03-15-2024 Chronic Other nutritional; endocrine; and metabolic disorders (1 source) Body mass index (BMI) 25.0-25.9, adult Episodic Other screening for suspected conditions (not mental disorders or infectious disease) (9 sources) Encounter for screening mammogram for malignant [...] te Episodic/Chronic Acute and unspecified renal failure (19 sources) Acute injury of kidney; Translations: [Acute kidney failure, unspecified] Onset: 01-17-2021 Resolved: 09-04-2023 01-21-2021 Episodic Calculus of urinary tract (20 sources) Ureteric stone; Translations: [Calculus of ureter] Onset: 01-17-2021 01-18-2021 Episodic Complications of surgical procedures or medical care [...] Onset: 06-15-2022 Episodic Fever of unknown origin (12 sources) Fever; Translations: [Fever, unspecified] Onset: 08-31-2023 [...] fracture] Onset: 06-15-2022 Episodic Malaise and fatigue (20 sources) Asthenia; Translations: [Weakness] Onset: 01-17-2021 01-18-2021 Episodic Neoplasms of unspecified nature or uncertain behavior (19 sources) Neoplasm of kidney; 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] Onset: 06-06-2023 06-22-2023 Episodic Open wounds of extremities (1 source) Unspecified open wound of right great toe without damage to nail, initial encounter; Translations: [UNS OP WND RT GRT TOE NO DMG NL INT] Onset: 05-16-2022 Episodic Other aftercare (4 sources) 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 (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; Translations: [FDC CURRENT USE OF INSULIN] Onset: 08-09-2022 Episodic Other aftercare (1 source) 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; Translations: [OTH FDC CURRENT DRUG THERAPY] Onset: 08-09-2022 Episodic Other aftercare (3 sources) Admission statuses; Translations: [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 (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 of opiate analgesic] Onset: 03-15-2022 03-15-2022 Episodic Other aftercare (2 sources) 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 (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 of opiate analgesic; Translations: [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 accountant (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 of opiate analgesic] Onset: 03-15-2022 [...] Onset: 07-25-2022 Episodic Other connective tissue disease (20 sources) Recurrent falls ; Translations: [Repeated falls] [...] diseases of kidney and ureters (12 sources) Hydronephrosis with ureteral stricture, not elsewhere classified; Translations: [Hydronephrosis] Onset: 01-17-2021 Resolved: 01-21-2021 01-21-2021 Episodic Other gastrointestinal disorders (1 source) Diarrhea, unspecified; Translations: [DIARRHEA UNSPECIFIED] Onset: 07-25-2022 Episodic Other lower respiratory disease (1 source) Hypoxemia; Translations: [HYPOXEMIA] Onset: 07-25-2022 Episodic Other nervous system disorders (16 sources) Postoperative pain ; Translations: [Other acute [...] Onset: 07-25-2022 Episodic Septicemia (except in labor) (16 sources) Sepsis, unspecified organism; Translations: [Sepsis due [...] Test Name Value Interpretation Reference Range Facility 36on 05-03-2024 36 Called to schedule p t with 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 LVM to call office back to schedule. Please advise pt to bring disc with imaging on it to her appt or advise scientific writer where imaging had been completed. Thank You Normal [facility] CNOVon 05-01-2024 CNOV Office Visit (UROLMN ) AISLINN WHEELER ([id number]) 1960 F Date Time Provider Department 05/01/24 10:00 AM JUANITO BARNARD During your visit today, we recorded the following information about you: Pulse Blood pressure 74/minute 173/96 Juanito Barnard MD 05/01/2024 12:12 PM Signed [facility] UROLOGY NEW PATIENT CLINIC NOTE SERVICE DATE: 05/01/2024 NAME: Aislinn Wheeler REFERRED BY: No referring provider defined for this encounter. Consultation requested by Dr. Nolen for an opinion regarding urinary incontinence. My final recommendations will be communicated back to the requesting physician by way of shared Medical record or letter to requesting physician via US mail. CHIEF COMPLAINT Urinary urgency, urinary leakage HISTORY OF PRESENT ILLNESS Ms. Wheeler is a 63 year old female with a history of DM, rheumatoid arthritis who presents for evaluation for stress incontinence, severe urinary urgency over the past 1-2 years. Has progressively worsened. Never felt like she could hold very much urine, but the urgency/frequency certainly wasn't to this degree. Notes stress incontinence with any sort of activity. Uses 10+ pads during the daytime. Gets up in the middle of the night to change her pads. Even with the leakage, has urgency every 30 minutes or so during the daytime. On CIC once daily in the afternoon/evening and also as needed. Has multiple UTIs per month over the past year. Sxs with UTI include: dysuria, suprapubic pain. Sometimes resolve with OTC pyridium. Had a recent admission for UTI requiring antibiotics. Patient endorses Valsalva voiding towards the end of her stream, only on occasion. Retention w bl hydro in 2020 Small capacity poorly compliant bladder s/p Botox without improvement. BM 1-2x/week, no daily regimen. PMH: - History of poorly controlled DM (A1c previously 16.5) x1.5-2 years - insulin-dependent. Now better controlled now 7.0. Blood sugars 130s. - CKD (Cr 1.3-1.78, GFR 31-46) - Rheumatoid arthritis (no medications, previously on steroids but became hyperglycemic) - No prior SCI, traumatic injuries, or hx MS. No numbness/tingling/weakn ess. PSH: robotic partial nx (06/2023), hysterectomy for fibroids (20 years ago) Lives with granddaughter Here with daughter in law DIL is somewhat concerned about her memory and ability to cath around the clock without bladder sensation PAST MEDICAL HISTORY PAST MEDICAL HISTORY No [...] rarely--holiday or special occ Drug use: Never MEDICATIONS Current Outpatient Medications Medication Sig metoprolol succinate [...] current facility-administered medications for this visit. CURRENT ALLERGIES Allergies As of Date: 05/01/2024 Allergen Noted Reaction LATEX 02/05/2020 Rash Fully Assessed 05/01/2024 OBJECTIVE PHYSICAL EXAM: 05/01/24 1045 BP: 173/96 BP Site: Left Arm BP Position: Sitting BP Cuff Size: Large Adult Pulse: 74 There is no height or weight on file to calculate BMI (more content not included)... Normal [facility] URINALYSIS, REFLEX MICROSCOP ICon 05-01-2024 Bilirubin Ql (U) Negative Negative [facility] Clarity (Unsp spec) Clear Clear [facility] Color (U) Yellow Yellow [facility] Glucose Test strip (U) [Mass/Vol] 1+ Abnormal Negative [facility] Hemoglobin Ql (U) Negative Negative [facility] Interpretation and review of laboratory results Abnormal [facility] Ketones Ql (U) Negative Negative [facility] Leukocyte esterase Test strip Ql (U) Trace Abnormal Negative [facility] Nitrite Ql (U) Negative Negative [facility] pH (U) 5.5 [pH] NINF - 8.5 [facility] Protein (U) [Mass/Vol] 2+ Abnormal Negative [facility] Specific gravity (U) [Rel density] 1.010 1.005 - 1.030 [facility] Urobilinogen Ql (U) 0.2 EU/dL 0.2-1.0 EU/dL [facility] This test was devcjo ped and its performance characteristics determined by [facility] Medicine [place] ([facility]). It has not been cleared or approved by the FDA. [facility] is regulated under CLIA as qualified to perform high-complexity testing. This test is used for clinical purposes. It should not be regarded as investigational or for research. [facility] Bilirubin Ql (U) Negative Normal Negative [facility] Comment on above: Order Comment: Speci men Type: URINE SPECIMENOrdering Facility: [facility] Address: [address] [place] [address] Performed By: #### L [id number] ####[facility] LABIA [id number] [place] [address] [place] Clarity (Unsp spec) Clear Normal Clear [facility] Comment on above: Order Comment: Speci men Type: URINE SPECIMENOrdering Facility: [facility] Address: [address] [place] [address] Performed By: #### L [id number] ####[facility] LABIA [id number] [place] [address] [place] Color (U) Yellow Normal Yellow [facility] Comment on above: Order Comment: Speci men Type: URINE SPECIMENOrdering Facility: [facility] Address: [address] [id number] Performed By: #### L [id number] ####[facility] LABCLIA [id number] [place] [address] [place] Glucose Test strip (U) [Mass/Vol] 1+ Abnormal Negative [facility] Comment on above: Order Comment: Speci men Type: URINE SPECIMENOrdering Facility: [facility] Address: [address] [place] [address] Performed By: #### L [id number] ####[facility] LABCLIA [id number] [place] [address] [place] Hemoglobin Ql (U) Negative Normal Negative [facility] Comment on above: Order Comment: Speci men Type: URINE SPECIMENOrdering Facility: [facility] Address: [address] [place] [address] Performed By: #### L [id number] ####[facility] LABCLIA [id number] [place] [address] [place] Ketones Ql (U) Negative Normal Negative [facility] Comment on above: Order Comment: Speci men Type: URINE SPECIMENOrdering Facility: [facility] Address: [address] [place] [address] Performed By: #### L [id number] ####[facility] LABCLIA [id number] [place] [address] [place] Leukocyte esterase Test strip Ql (U) Trace Abnormal Negative [facility] Comment on above: Order Comment: Speci men Type: URINE SPECIMENOrdering Facility: [facility] Address: [address] [place] [address] Performed By: #### L [id number] ####[facility] LABCLIA [id number] [place] [address] [place] Nitrite Ql (U) Negative Normal Negative [facility] Comment on above: Order Comment: Speci men Type: URINE SPECIMENOrdering Facility: [facility] Address: [address] [place] [address] Performed By: #### L [id number] ####[facility] LABIA [id number] [place] [address] [place] pH (U) 5.5 [pH] Normal <8.5 [facility] Comment on above: Order Comment: Speci men Type: URINE SPECIMENOrdering Facility: [facility] Address: [address] [place] [address] Performed By: #### L [id number] ####[facility] LABIA [id number] [place] [address] [place] Protein (U) [Mass/Vol] 2+ Abnormal Negative [facility] Comment on above: Order Comment: Speci men Type: URINE SPECIMENOrdering Facility: [facility] Address: [address] [place] [address] Performed By: #### L [id number] ####[facility] LABIA [id number] [place] [address] [place] Specific gravity (U) [Rel density] 1.010 Normal 1.005-1.030 [facility] Comment on above: Order Comment: Speci men Type: URINE SPECIMENOrdering Facility: [facility] Address: [address] [place] [address] Performed By: #### L [id number] ####[facility] LABIA [id number] [place] [address] [place] Urobilinogen Ql (U) 0.2 EU/dL Normal 0.2-1.0 EU/dL [facility] Comment on above: Order Comment: Speci men Type: URINE SPECIMENOrdering Facility: [facility] Address: [address] [place] [address] Performed By: #### L [id number] ####[facility] LABIA [id number] [place] [address] [place] Drugs of abuse panel Screen (U)on 04-24-2024 Control Substance Panel, Urine SEE COMMENTS 04/28/2024 10:47 AM Abnormal [facility] Comment on above: Result Comment: NOTE Test Result Flag Unit RefValue - Controlled Substance Monitoring, U List Patient's Current HYDROCODONE Medications ADDITIONAL INFORMATION Accuracy and completeness of declared medications on reports solely dependent on information submitted by client. Creatinine, U 51.0 mg/dL Specific [place] 1.010 pH 5.4 Oxidants Negative -- REFERENCE VALUE -- Cutoff: 200 mg/L Comment Normal Barbiturates Negative ng/mL Cutoff: 200 Cocaine Negative ng/mL Cutoff: 150 This cocaine immunoassay targets benzoylecgonine the primary metabolite of cocaine. Tetrahydrocannabinol Negative ng/mL Cutoff: 50 This immunoassay targets delta-9 tetrahydrocannabinol carboxylic acid (THC-COOH), a metabolite of delta-9 tetrahydrocannabinol the main psychoactive ingredient of marijuana. ADDITIONAL INFORMATION This report is intended for use in clinical monitoring or management of patients. It is not intended for use in employment-related testing. Codeine Not Detected ng/mL Cutoff: 25 Tylenol 3 Ijhprwq-8-akbe- Not Detected ng/mL Cutoff: 100 glucuronide Metabolite of codeine Morphine Not Detected ng/mL Cutoff: 25 Marium Leon, MS Contin; Also a minor metabolite (10%) of codeine and can be seen in low concentrations (<2,000 ng/mL) with poppy seed ingestion. Vlxysfkp-9-xsvs- Not Detected ng/mL Cutoff: 100 glucuronide Metabolite of morphine 6-monoacetylmorphine Not Detected ng/mL Cutoff: 25 Metabolite of heroin Hydrocodone Present A ng/mL Cutoff: 25 Lortab, [place], Vicodin; Also a very minor metabolite of codeine and impurity (<1%) of oxycodone. Norhydrocodone Present A ng/mL Cutoff: 25 Metabolite of hydrocodone Dihydrocodeine Present A ng/mL Cutoff: 25 Metabolite of hydrocodone Hydromorphone Not Detected ng/mL Cutoff: 25 Dilaudid, Exalgo; Also a metabolite of hydrocodone and a minor (<5%) metabolite of morphine. Vbtzgxunhyjce-9-udij- Present A ng/mL Cutoff: 100 glucuronide Metabolite of hydromorphone Oxycodone Not Detected ng/mL Cutoff: 25 Endocet, Percocet, Oxycontin Noroxycodone Not Detected ng/mL Cutoff: 25 Metabolite of oxycodone Oxymorphone Not Detected ng/mL Cutoff: 25 Numorphan, Opana; Also a metabolite of oxycodone. Pfitgnlhkth-0-hdpp- Not Detected ng/mL Cutoff: 100 glucuronide Metabolite of oxymorphone and/or naloxone (nornaloxone) Noroxymorphone Not Detected ng/mL Cutoff: 25 Metabolite of oxymorphone and/or naloxone (nornaloxone) Fentanyl Not Detected ng/mL Cutoff: 2 Actiq, Duragesic, Fentora Norfentanyl Not Detected ng/mL Cutoff: 2 Metabolite of fentanyl Meperidine Not Detected ng/mL Cutoff: 25 Demerol Normeperidine Not Detected ng/mL Cutoff: 25 Metabolite of meperidine Naloxone Not Detected ng/mL Cutoff: 25 Narcan Pstatvcq-2-qoiz- Not Detected ng/mL Cutoff: 100 glucuronide Metabolite of naloxone Methadone Not Detected ng/mL Cutoff: 25 Dolophine EDDP Not Detected ng/mL Cutoff: 25 Metabolite of methadone Propoxyphene Not Detected ng/mL Cutoff: 25 Darvon, Darvocet Norpropoxyphene Not Detected ng/mL Cutoff: 25 Metabolite of propoxyphene Tramadol Not Detected ng/mL Cutoff: 25 Tradol, Ultram, Ultracet O-desmethyltramadol Not Detected ng/mL Cutoff: 25 Metabolite of tramadol Tapentadol Not Detected ng/mL Cutoff: 25 Nucynta N-desmethyltapentadol Not Detected ng/mL Cutoff: 50 Metabolite of tapentadol Tapentadol-beta- Not Detected ng/mL Cutoff: 100 glucuronide Metabolite of tapentadol Buprenorphine Not Detected ng/mL Cutoff: 5 Buprenex, Suboxone Norbuprenorphine Not Detected ng/mL Cutoff: 5 Metabolite of buprenorphine Norbuprenorphine Not Detected ng/mL Cutoff: 20 glucuronide Metabolite of buprenorphine Opioid Interpretation See Note Test detected the presence of hydrocodone, two of its metabolites (norhydrocodone and dihydrocodeine), and gvdnsnhhwmhbk-0-rpvo-glucuronide (metabolite of hydromorphone). Suspect use of hydrocodone and/or hydromorphone within the past three days. Trace amounts of hydrocodone can also be found as an impurity in hydromorphone. ADDITIONAL INFORMATION This test was developed and its performance characteristics determined by [facility] in a manner consistent with CLIA requirements. This test has not been cleared or approved by the U.S. Food and Drug Administration. Alprazolam Not Detected ng/mL Cutoff: 10 Xanax Alpha-Hydroxyalprazolam Not Detected ng/mL Cutoff: 10 Metabolite of Alprazolam Alpha-Hydroxyalprazolam Not Detected ng/mL Cutoff: 50 Glucuronide Metabolite of Alprazolam Chlordiazepoxide Not Detected ng/mL Cutoff: 10 Librium Clobazam Not Detected ng/mL Cutoff: 10 Frisium, Onfi N-Desmethylclobazam Not Detected ng/mL Cutoff: 200 Metabolite of Clobazam Clonazep (more content not included)... 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 Bladder remodeling without VUR. Valsalva voiding with atonic detrusor. Will refer to consider bladder augmentation. 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 The bony and soft tissue structures are within normal. 147 ccs contrast were used to fill the bladder. The bladder outline is irregular/trabeculated and abnormal shaped appearing. There is no ureteral reflux. During the voiding phase there is abnormal bladder neck opening and urethra is not visualized. Bladder emptying is not visualized Read (more content not included)... Normal [facility] CNOVon 03-26-2024 CNOV Office Visit (UROLAV ) AISLINN WHEELER ([id number]) 1960 F Date Time Provider Department 03/26/24 [...] Carmenza Nolen MD 03/26/2024 11:54 AM Signed [facility] FOR FEMALE [...] her bladder. Had bladder botox injections at [facility] about 3 mo ago with no [...] Assessed 03/26/2024 PHYSICAL EXAM: Patient declined a scheduling representative General: No acute distress, well appearing : [...] Signed INFOR (more content not included)... Normal [facility] UA DIP, URINE (POC)on 2023 BILIRUBIN UA (POCT) Negative Negative [facility] CLARITY UA (POCT) Cloudy [facility] COLOR UA (POCT) Light yellow [facility] GLUCOSE UA (POCT) Negative Negative mg/dL [facility] Hemoglobin Ql (U) Trace-intact Abnormal Negative [facility] Interpretation and review of laboratory results Abnormal [facility] KETONE UA (POCT) Negative Negative mg/dL [facility] LEUKOCYTES UA (POCT) Moderate Abnormal Negative [facility] NITRITE UA (POCT) Negative Negative [facility] PH UA (POCT) 6.0 4.5 - 8.0 [facility] Protein Ql (U) 100 mg/dL Abnormal Negative [facility] SPECIFIC GRAVITY UA (POCT) 1.020 1.005 - 1.030 [facility] UROBILINOGEN UA (POCT) 0.2 Normal E.U./dL [facility] Location:[facility], [address], [place], [place], [address] [facility] POINT OF CARE [facility] Glucose Glucometer (BldC) [M ass/Vol]on 03-15-2024 Glucose [Mass/Vol] 164 mg/dL High 65-99 [facility] 02-26-2024 CNPN Telephone (URFHR) AISLINN WHEELER ([id number]) 1960 F Date Time Provider Department 02/26/24 FLAVIO COON URR During your visit today, we recorded the following information about you: Flavio Coon, RN 02/26/2024 2:46 PM Signed Pt LVM asking for her CT scan results. Noted in pt chart was an unread message from regarding the most recent CT scan. LVM for pt and let her know about [employer] message and provided number if pt has [...] Encounter Status:Closed by FLAVIO COON [facility]/24 [facility] Tele[facility] (URFHR) AISLINN WHEELER ([id number]) 1960 F Date Time Provider Department 02/12/24 VONNIE WILDER [facility] IS[facility] During your visit today, we recorded the [...] Status:Closed by VONNIE WILDER on 02/12/24 Normal [facility] CT Kidney WO and W contrast IVOrdered By: Ccf Provider on 02-02-2024 Interpretation and review of laboratory results Abnormal [facility] Radiology Result ACTIONABLE Abnormal [facility] Comment on above: This report contains an incidental or actionable finding. This finding may be a new finding separate from the reason your provider ordered the imaging test or it may be an already known finding that needs additional or continued follow-up. Because of this incidental or actionable finding, you may need another test (imaging or a different type of test). Please contact your provider for the next steps. [facility] CT Kidney WO and W contrast Mirna 02-02-2024 IMPRESSION: 1. Interval resection of previously noted [...] be communicated with the ordering provider via imbookin (Pogby) staff message or phone message by Imaging [...] any questions regarding this interpretation, please call [phone]. If you are unable to reach us at the number above, please feel free to contact [facility] at [phone]. DIVISION OF RADIOLOGY * * *Final Report* * * DATE OF EXAM: Feb 01 2024 3:26PM [facility] 0560 - CT UROGRAM WO/W [...] dated 01/20/[address] scan dated 01/17/21 [facility] RESULT: Kidneys and urinary tract: Right: [...] on 02/13/23. Localizer images: No additional findings. DIVISION OF RADIOLOGY Provider, [facility] - 02/02/2024 * * *Final Report* * * DATE OF EXAM: Feb 01 2024 3:26PM [facility] 0560 - CT UROGRAM WO/W [...] on 02/13/23. Localizer images: No additional findings. IMPRESSION IMPRESSION: 1. Interval resection of previously noted [...] be communicated with the ordering provider via imbookin (Pogby) staff message or phone message by Imaging [...] any questions regarding this interpretation, please call [phone]. If you are unable to reach us at the number above, please feel free to contact [facility] eRadiology at [phone]. [facility] CREATININE BLDOrdered By: James Murguia on 02-01-2024 Creatinine [Mass/Vol] 1.78 mg/dL High 0.58 - 0.96 mg/dL [facility] GFR/1.73 sq M.predicted among non-blacks MDRD (S/P/Bld) [Vol rate/Area] 31 mL/min/{1.73_m2} Low - PINF [facility] Comment on above: Estimated Glomerular Filtration Rate (eGFR) is calculated using the 2020 CKD-EPI creatinine equation. This equation utilizes serum creatinine, sex, and age as parameters. The creatinine assay has traceable calibration to isotope dilution-mass spectrometry. Refer to KDIGO guidelines for clinical interpretation. In patients with unstable renal function, e.g. those with acute kidney injury, the eGFR may not accurately reflect actual GFR. Interpretation and review of laboratory results Abnormal [facility] CREATININE BLDon 02-01-2024 Creatinine [Mass/Vol] 1.78 mg/dL High 0.58-0.96 [facility] Comment on above: Order Comment: Speci men Type: BLOOD SPECIMENOrdering Facility: [facility] Address: [address] [place] [address] [place] [address] Performed By: #### C RET1 ####[facility] LABCLIA [id number] [place] [address] Creatinine and Glomerular filtration rate.predicted panel (S/P/Bld) 31 mL/min/1.73m??? Low >=60 [facility] Comment on above: Order Comment: Speci men Type: BLOOD SPECIMENOrdering Facility: [facility] Address: [address] [place] [address] Result Comment: Donna mated Glomerular Filtration Rate [...] actual GFR. Performed By: #### C RET1 ####[facility] LABCLIA [id number] [place] [address] CT Kidney WO and W contrast Mirna 02-01-2024 Radiology Study observation (narrative) [facility] CT UROGRAM WO/W IVCONon 01-19 CT UROGRAM WO/W IVCON * * *Final Report* * * DATE OF EXAM: Feb 01 2024 3:26PM [facility] 0560 - CT UROGRAM WO/W [...] dated 01/20/[address] scan dated 01/17/21 [facility] RESULT: Kidneys and urinary tract: Right: [...] be communicated with the ordering provider via imbookin (Pogby) staff message or phone message by Imaging [...] any questions regarding this interpretation, please call [phone]. If you are unable to reach us at the number above, please feel free to contact [facility] eRadiology at [phone]. [id number] ACTIONABLE Invalid Interpretation Code [facility] CNOVon 01-12-2024 CNOV Office Visit (URFMOB ) AISLINN WHEELER ([id number]) 1960 F Date Time Provider Department 01/12/24 1:50 PM TAURUS BALLARD URFREDDIE During your visit today, we recorded the following information about you: Pulse Blood pressure 75/minute 142/69 Taurus Ballard MD 01/12/2024 2:43 PM Signed [facility] FOLLOW-UP PATIENT HISTORY AND PHYSICAL [...] urogram Will refer to Dr. Tamanna Ruiz APRN.STANDPIPE TENDER Attending Note I have personally performed a [...] her ki (more content not included)... Normal [facility] UA DIP, URINE (POC)on 2023 BILIRUBIN UA (POCT) Negative Negative [facility] CLARITY UA (POCT) Clear [facility] COLOR UA (POCT) Yellow [facility] GLUCOSE UA (POCT) 100 mg/dL Abnormal Negative [facility] Hemoglobin Ql (U) Trace-intact Abnormal Negative [facility] Interpretation and review of laboratory results Abnormal [facility] KETONE UA (POCT) Negative Negative mg/dL [facility] LEUKOCYTES UA (POCT) Small Abnormal Negative [facility] NITRITE UA (POCT) Negative Negative [facility] PH UA (POCT) 5.5 4.5 - 8.0 [facility] Protein Ql (U) 100 mg/dL Abnormal Negative [facility] SPECIFIC GRAVITY UA (POCT) 1.015 1.005 - 1.030 [facility] UROBILINOGEN UA (POCT) 0.2 Normal E.U./dL [facility] Location:[facility], [address] [address] [place], [place], [address] [place] [address] POINT OF CARE [facility] ED Note-Physicianon 10-30-19 24 ED Note-Physician [id number]#1.00 TIFF Normal [facility] Lab Reportson 10-30-2023 Lab Reports [id number]#1.00T IFF Normal [facility] Lab Reports [id number]#1.00T IFF Normal [facility] Urology Office/Clinic Noteon 10-26-2023 Urology Office/Clinic Note Chief Complaint S/P to Cysto with Botox HPI Staff KML pt. Here for f/u to Botox 100u done 05/22/23. R/s'd appt from 06/28/23. Previous dx: renal cyst, mixed incontinence, feeling of incomplete bladder emptying, glucosuria. Pt was referred to Dr. Ballard at [facility] for evaluation of robotic left cyst decortication. [...] Assessment/Plan 1. 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 [...] procedure. This is confusing bc review of [facility]'s op report shows completely normal events (lidocaine instilled normally, 10 injections of 2ml each) so it's unclear if pt received full 100units or not. Pt called 06/08/23 c/o worsening leakage after Botox. PVR was 174 cc (compared to 142cc prior to botox). [facility] recommended to start CIC 3x/day for residual, timed voids q2hr, and tight DM control. Pt was in [facility] ER 06/19 and treated for E [...] kidney measuri (more content not included)... Normal [facility] Comment on above: Result Comment: Elec tronically Signed By: HEIDY ARNOLD PA-C\.br\Date and Time Signed: 10/26/23 11:50 EST\.br\Electronically Co-Signed By: Dina Jolly\.br\Date and Time Co-Signed: 10/25/23 16:39 EST Ambulatory Visit Summaryon 0 - Ambulatory Visit Summary AISLINN WHEELER :1960 Visit [...] HEIDY ARNOLD PA-C, URL When: [address] [place] [address] Medications What How Much When Instructions Unchanged [...] including vitamins, herbs, eye drops, creams, and axve-fsi-asyewfr medicines. ? Any problems you or family [...] Do no (more content not included)... Normal [facility] Patient Educationon 10-25-19 Patient Education Urology [...] including vitamins, herbs, eye drops, creams, and mdvy-hfp-dcsijgh medicines. ? Any problems you or family [...] tells you to take them. ? Taking cofk-jse-pbiekyx medicines, vitamins, herbs, and supplements. General instructions [...] these instructions at home: Medicines ? Take kusq-ikp-uuhsguc and prescription medicines only as told by [...] health ca (more content not included)... Normal [facility] Glucose Glucometer (BldC) [M ass/Vol]on 10-13-2023 Glucose [Mass/Vol] 276 mg/dL High 65-99 [facility] Glucose Glucometer (BldC) [M ass/Vol]on 09-29-2023 Glucose [Mass/Vol] 356 mg/dL High 65-99 [facility] CNPNon 09-27-2023 CNPN Telephone (FVPRAD) AISLINN WHEELER ([id number]) 1960 F Date Time Provider Department 09/27/23 DREW BUCKNER FVPRAD During your visit today, we recorded the following information about you: Drew Buckner, Research Coordinator 09/27/2023 2:33 PM Signed IRB# [id number]: Vascular events in patients undergoing same-day nonCardiac surgery - [facility] PI: Mary Rojas MD, LETY, FASA. Outcomes Research Department. Anesthesia [place]. [facility]. Aislinn Wheeler was unavailable at the listed phone number. We will attempt to contact the patient through TSCA message. Drew Esqueda Research Coordinator Research Coordinator Allergies As of Date: 09/27/2023 Noted Allergy Reaction LATEX 02/05/2020 2 - Rash Comments: Added based on information entered during case entry, please review and add reactions, type, and severity as needed Date Reviewed: 09/03/2023 Reviewed by: Chuck Kirk RN - Fully Assessed Reason for Visit: Research F/U [870] Prescriptions as of 09/27/2023 - pregabalin (LYRICA) [...] Encounter Status:Closed by DREW BUCKNER on 09/27/23 [facility] 09-26-2023 CNPN Telephone (FVPRAD) AISLINN WHEELER ([id number]) 1960 F Date Time Provider Department 09/26/23 DREW BUCKNER FVPRAD During your visit today, we recorded the following information about you: Drew Buckner, Research Coordinator 09/26/2023 3:32 PM Signed IRB# [id number]: Vascular events in patients undergoing same-day nonCardiac surgery - [facility] PI: Mary Rojas MD, LETY, FASA. Outcomes Research Department. Anesthesia [place]. [facility]. Aislinn Wheeler was unavailable at the listed phone number. We will attempt to contact the patient again at a later date. Drew Esqueda, Research Coordinator Research Coordinator Allergies As of Date: 09/26/2023 Noted Allergy Reaction LATEX 02/05/2020 2 - Rash Comments: Added based on information entered during case entry, please review and add reactions, type, and severity as needed Date Reviewed: 09/03/2023 Reviewed by: Chuck Kirk, RN - Fully Assessed Reason for Visit: Research F/U [948] Prescriptions as of 09/26/2023 - pregabalin (LYRICA) [...] Encounter Status:Closed by DREW BUCKNER on 09/26/23 [facility] CNDSon 09-04-2023 [facility] HNO ID: [id number] Author: ANTHONY BARROW MD Service: Hospital Medicine [...] Provider Department Center 10/06/2023 1:00 PM US [facility] BRITTANIE VALDES [facility] Brittanie 10/06/2023 2:00 PM LAB [facility] [place] [facility] Brittanie 10/11/2023 1:50 PM Taurus Ballard MD [facility] ALLERGIES Allergen Reactions Latex Rash Added based [...] U-100 INSULIN SUBCUTANEO (more content not included)... [facility] ALLIED HEALTHon 09-03-2023 [facility] HNO ID: [id number] Author: NICOL MILLIGAN RT(R) Service: Radiology Author [...] RT Michael(R) September 03, 2023 2:57 PM [facility] Basic metabolic 2000 panelon 09-03-2023 Anion gap [Moles/Vol] 10 mmol/L Normal 9-18 [facility] Comment on above: Order Comment: Speci men Type: BLOOD SPECIMEN [facility] Address: [address] [place] [address] Performed By: #### 2 [id number] #### [facility] CLIA [id number] [place] [address] [place] Calcium [Mass/Vol] 8.8 mg/dL Normal 8.5-10.2 [facility] Comment on above: Order Comment: Speci men Type: BLOOD SPECIMEN [facility] Address: [address] [place] [address] Performed By: #### 2 4321-2 #### [facility] CLIA [id number] [address] [place] [address] [place] Chloride [Moles/Vol] 103 mmol/L Normal 97-105 [facility] Comment on above: Order Comment: Speci men Type: BLOOD SPECIMEN Ordering Facility: [facility] Address: [address] [place] [address] Performed By: #### 2 4321-2 #### [facility] CLIA [id number] [address] [place] [address] [place] CO2 [Moles/Vol] 23 mmol/L Normal 22-30 [facility] Comment on above: Order Comment: Speci men Type: BLOOD SPECIMEN Ordering Facility: [facility] Address: [address] [place] [address] Performed By: #### 2 4321-2 #### [facility] CLIA [id number] [address] [place] [address] [place] Creatinine [Mass/Vol] 1.29 mg/dL High 0.58-0.96 [facility] Comment on above: Order Comment: Speci men Type: BLOOD SPECIMEN Ordering Facility: [facility] Address: [address] [place] [address] Performed By: #### 2 4321-2 #### [facility] CLIA [id number] [address] [place] [address] [place] Creatinine and Glomerular filtration rate.predicted panel (S/P/Bld) 46 mL/min/1.73m??? Low >=60 [facility] Comment on above: Order Comment: Speci men Type: BLOOD SPECIMEN Ordering Facility: [facility] Address: [address] [place] [address] Result Comment: Donna mated Glomerular Filtration Rate [...] GFR. Performed By: #### 2 4321-2 #### [facility] CLIA [id number] [address] [place] [address] [place] Glucose [Mass/Vol] 123 mg/dL High 74-99 [facility] Comment on above: Order Comment: [place] Type: BLOOD SPECIMEN Ordering Facility: [facility] Address: [address] [place] [address] Result Comment: The [place] [employer] (ADA) provides guidance for cutoff [...] Standards of Medical Care in Diabetes 2016, [place] [employer]. Diabetes Care. 2016.39(Suppl 1). Performed By: #### 2 4321-2 #### [facility] CLIA [id number] [address] [place] [address] [place] Potassium [Moles/Vol] 5.0 mmol/L Normal 3.7-5.1 [facility] Comment on above: Order Comment: [place] Type: BLOOD SPECIMEN Ordering Facility: [facility] Address: [address] [place] [address] Performed By: #### 2 4321-2 #### [facility] CLIA [id number] [address] [place] [address] [place] Sodium [Moles/Vol] 136 mmol/L Normal 136-144 [facility] Comment on above: Order Comment: Dial[place] reinier Type: BLOOD SPECIMEN Ordering Facility: [facility] Address: [address] [place] [address] Performed By: #### 2 4321-2 #### [facility] CLIA [id number] [address] [place] [address] [place] Urea nitrogen [Mass/Vol] 22 mg/dL High 7-21 [facility] Comment on above: Order Comment: Speci men Type: BLOOD SPECIMEN Ordering Facility: [facility] Address: [address] [place] [address] Performed By: #### 2 4321-2 #### [facility] CLIA [id number] [address] [place] [address] [place] CBC panel Auto (Bld)on 09-03 Erythrocyte distribution width (RBC) [Ratio] 14.6 % Normal 11.5-15.0 [facility] Comment on above: Order Comment: Speci men Type: BLOOD SPECIMEN Ordering Facility: [facility] Address: [address] [place] [address] Performed By: #### [place], 95[address]-0 #### [facility] CLIA [id number] [address] [place] [address] [place] Hematocrit (Bld) [Volume fraction] 28.7 % Low 36.0-46.0 [facility] Comment on above: Order Comment: Speci men Type: BLOOD SPECIMEN Ordering Facility: [facility] Address: [address] [place] [address] Performed By: #### B HB, 14790-1 #### [facility] CLIA [id number] [address] [place] [address] [place] Hemoglobin (Bld) [Mass/Vol] 8.9 g/dL Low 11.5-15.5 [facility] Comment on above: Order Comment: Speci men Type: BLOOD SPECIMEN Ordering Facility: [facility] Address: [address] [place] [address] Performed By: #### B HB, 52973-5 #### [facility] CLIA [id number] [address] [place] [address] [place] MCH (RBC) [Entitic mass] 24.1 pg Low 26.0-34.0 [facility] Comment on above: Order Comment: Speci men Type: BLOOD SPECIMEN Ordering Facility: [facility] Address: [address] [place] [address] Performed By: #### B HB, #### [facility] CLIA [id number] [address] [place] [address] [place] MCHC (RBC) [Mass/Vol] 31.0 g/dL Normal 30.5-36.0 [facility] Comment on above: Order Comment: Speci men Type: BLOOD SPECIMEN Ordering Facility: [facility] Address: [address] [place] [address] Performed By: #### B HB, #### [facility] CLIA [id number] [address] [place] [address] [place] MCV (RBC) [Entitic vol] 77.6 fL Low 80.0-100.0 [facility] Comment on above: Order Comment: Speci men Type: BLOOD SPECIMEN Ordering Facility: [facility] Address: [address] [place] [address] Performed By: #### B HB, #### [facility] CLIA [id number] [address] [place] [address] [place] Nucleated RBC (Bld) [#/Vol] 10*3/uL Normal <0.01 [facility] Comment on above: Order Comment: Speci men Type: BLOOD SPECIMEN Ordering Facility: [facility] Address: [address] [place] [address] Performed By: #### B HB, #### [facility] CLIA [id number] [address] [place] [address] [place] Platelet mean volume (Bld) [Entitic vol] 10.8 fL Normal 9.0-12.7 [facility] Comment on above: Order Comment: Speci men Type: BLOOD SPECIMEN Ordering Facility: [facility] Address: [address] [place] [address] Performed By: #### B HB, #### [facility] CLIA [id number] [address] [place] [address] [place] Platelets (Bld) [#/Vol] 334 10*3/uL Normal 150-400 [facility] Comment on above: Order Comment: [place] Type: BLOOD SPECIMEN Ordering Facility: [facility] Address: [address] [place] [address] Performed By: #### B HB, 74494-8 #### [facility] CLIA [id number] [address] [place] [address] [place] RBC (Bld) [#/Vol] 3.70 10*6/uL Low 3.90-5.20 [facility] Comment on above: Order Comment: [place] Type: BLOOD SPECIMEN Ordering Facility: [facility] Address: [address] [place] [address] Performed By: #### B HB, 07890-8 #### [facility] CLIA [id number] [address] [place] [address] [place] WBC (Bld) [#/Vol] 6.44 10*3/uL Normal 3.70-11.00 [facility] Comment on above: Order Comment: [place] Type: BLOOD SPECIMEN Ordering Facility: [facility] Address: [address] [place] [address] Performed By: #### B HB, 94398-6 #### [facility] CLIA [id number] [address] [place] [address] [place] FOOT WO [...] NO EVIDENCE OF OSTEOMYELITIS ON THIS EXAMINATION. Producer Director: PSCKimberlyn Transcribe Date/Time: Sep 03 2023 11:22P Dictated by : FINESSE [place] MD This examination was interpreted and the report reviewed and electronically signed by: FINESSE [place] MD on Sep 03 2023 11:27PM EST [id number] Normal [facility] Basic metabolic 2000 panelon 09-02-2023 Anion gap [Moles/Vol] 9 mmol/L Normal 9-18 [facility] Comment on above: Order Comment: [place] Type: BLOOD SPECIMEN Ordering Facility: [facility] Address: [address] [place] [address] Performed By: #### B HB, 46866-2 #### [facility] CLIA [id number] [address] [place] [address] [place] Calcium [Mass/Vol] 8.1 mg/dL Low 8.5-10.2 [facility] Comment on above: Order Comment: [place] Type: BLOOD SPECIMEN Ordering Facility: [facility] Address: [address] [place] [address] Performed By: #### B HB, #### [facility] CLIA [id number] [address] [place] [address] [place] Chloride [Moles/Vol] 106 mmol/L High 97-105 [facility] Comment on above: Order Comment: [place] Type: BLOOD SPECIMEN Ordering Facility: [facility] Address: [address] [place] [address] Performed By: #### B HB, 69190-9 #### [facility] CLIA [id number] [address] [place] [address] [place] CO2 [Moles/Vol] 22 mmol/L Normal 22-30 [facility] Comment on above: Order Comment: [place] Type: BLOOD SPECIMEN Ordering Facility: [facility] Address: [address] [place] [address] Performed By: #### B HB, 59958-9 #### [facility] CLIA [id number] [place] [address] [place] Creatinine [Mass/Vol] 1.30 mg/dL High 0.58-0.96 [facility] Comment on above: Order Comment: [place] Type: BLOOD SPECIMEN Ordering Facility: [facility] Address: [address] [place] [address] Performed By: #### B HB, #### [facility] CLIA [id number] [address] [place] [address] [place] [facility] Creatinine and Glomerular filtration rate.predicted panel (S/P/Bld) 46 mL/min/1.73m??? Low >=60 [facility] Comment on above: Order Comment: [place] Type: BLOOD SPECIMEN Ordering Facility: [facility] Address: [address] [place] [address] Result Comment: Donna mated Glomerular Filtration Rate [...] actual GFR. Performed By: #### B HB, 18984-9 #### [facility] CLIA [id number] [address] [place] [address] [place] Glucose [Mass/Vol] 192 mg/dL High 74-99 [facility] Comment on above: Order Comment: [place] reinier Type: BLOOD SPECIMEN Ordering Facility: [facility] Address: [address] [place] [address] Result Comment: The [place] Diabetes [employer] (ADA) provides guidance for cutoff [...] Standards of Medical Care in Diabetes 2016, [place] [employer]. Diabetes Care. 2016.39(Suppl 1). Performed By: #### B HB, 62584-4 #### [facility] CLIA [id number] [address] [place] [address] [place] Potassium [Moles/Vol] 4.9 mmol/L Normal 3.7-5.1 [facility] Comment on above: Order Comment: [place] Type: BLOOD SPECIMEN Ordering Facility: [facility] Address: [address] [place] [address] Performed By: #### B HB, 58761-7 #### [facility] CLIA [id number] [address] [place] [address] [place] Sodium [Moles/Vol] 137 mmol/L Normal 136-144 [facility] Comment on above: Order Comment: Simonai reinier Type: BLOOD SPECIMEN Ordering Facility: [facility] Address: [address] [place] [address] Performed By: #### B HB, 50256-0 #### [facility] CLIA [id number] [address] [place] [address] [place] Urea nitrogen [Mass/Vol] 17 mg/dL Normal 7-21 [facility] Comment on above: Order Comment: Simonai men Type: BLOOD SPECIMEN Ordering Facility: [facility] Address: [address] [place] [address] Performed By: #### B HB, 76699-0 #### [facility] CLIA [id number] [address] [place] [address] [place] CBC panel Auto (Bld)on 09-02 Erythrocyte distribution width (RBC) [Ratio] 14.6 % Normal 11.5-15.0 [facility] Comment on above: Order Comment: Simonai men Type: BLOOD SPECIMEN Ordering Facility: [facility] Address: [address] [place] [address] Performed By: #### B HB, #### [facility] CLIA [id number] [address] [place] [address] [place] Hematocrit (Bld) [Volume fraction] 28.4 % Low 36.0-46.0 [facility] Comment on above: Order Comment: Speci men Type: BLOOD SPECIMEN Ordering Facility: [facility] Address: [address] [place] [address] Performed By: #### B HB, #### [facility] CLIA [id number] [address] [place] [address] [place] Hemoglobin (Bld) [Mass/Vol] 8.9 g/dL Low 11.5-15.5 [facility] Comment on above: Order Comment: Speci men Type: BLOOD SPECIMEN Ordering Facility: [facility] Address: [address] [place] [address] Performed By: #### B HB, #### [facility] CLIA [id number] [address] [place] [address] [place] MCH (RBC) [Entitic mass] 24.2 pg Low 26.0-34.0 [facility] Comment on above: Order Comment: Speci men Type: BLOOD SPECIMEN Ordering Facility: [facility] Address: [address] [place] [address] Performed By: #### B HB, #### [facility] CLIA [id number] [address] [place] [address] [place] MCHC (RBC) [Mass/Vol] 31.3 g/dL Normal 30.5-36.0 [facility] Comment on above: Order Comment: Speci men Type: BLOOD SPECIMEN Ordering Facility: [facility] Address: [address] [place] [address] Performed By: #### B HB, #### [facility] CLIA [id number] [address] [place] [address] [place] MCV (RBC) [Entitic vol] 77.2 fL Low 80.0-100.0 [facility] Comment on above: Order Comment: Speci men Type: BLOOD SPECIMEN Ordering Facility: [facility] Address: [address] [place] [address] Performed By: #### B HB, #### [facility] CLIA [id number] [address] [place] [address] [place] Nucleated RBC (Bld) [#/Vol] 10*3/uL Normal <0.01 [facility] Comment on above: Order Comment: Speci men Type: BLOOD SPECIMEN Ordering Facility: [facility] Address: [address] [place] [address] Performed By: #### B HB, #### [facility] CLIA [id number] [address] [place] [address] [place] Platelet mean volume (Bld) [Entitic vol] 10.4 fL Normal 9.0-12.7 [facility] Comment on above: Order Comment: Speci men Type: BLOOD SPECIMEN Ordering Facility: [facility] Address: [address] [place] [address] Performed By: #### B HB, #### [facility] CLIA [id number] [address] [place] [address] [place] Platelets (Bld) [#/Vol] 285 10*3/uL Normal 150-400 [facility] Comment on above: Order Comment: Speci men Type: BLOOD SPECIMEN Ordering Facility: [facility] Address: [address] [place] [address] Performed By: #### B HB, #### [facility] CLIA [id number] [address] [place] [address] [place] RBC (Bld) [#/Vol] 3.68 10*6/uL Low 3.90-5.20 [facility] Comment on above: Order Comment: Speci men Type: BLOOD SPECIMEN Ordering Facility: [facility] Address: [address] [place] [address] Performed By: #### B HB, 52825-8 #### [facility] CLIA [id number] [address] [place] [address] [place] WBC (Bld) [#/Vol] 5.94 10*3/uL Normal 3.70-11.00 [facility] Comment on above: Order Comment: Speci men Type: BLOOD SPECIMEN Ordering Facility: [facility] Address: [address] [place] [address] Performed By: #### B HB, 72490-6 #### [facility] CLIA [id number] [address] [place] [address] [place] Bacteria Ur Culton 4 Bacteria identified Cx Nom (U) CULTURE, URINE: No growth (<1,000 CFU/ml) Normal [facility] Comment on above: Performed By: #### 6 30-4 #### [facility] CLIA [id number] [address] [facility] [id number] [address] [place] Basic metabolic 2000 panelon 09-01-2023 Anion gap [Moles/Vol] 10 mmol/L Normal 9-18 [facility] Comment on above: Order Comment: Speci men Type: BLOOD SPECIMEN Ordering Facility: [facility] Address: [address] [place] [address] Performed By: #### B HB, 74407-4 #### [facility] CLIA [id number] [address] [place] [address] [place] Calcium [Mass/Vol] 7.9 mg/dL Low 8.5-10.2 [facility] Comment on above: Order Comment: Speci men Type: BLOOD SPECIMEN Ordering Facility: [facility] Address: [address] [place] [address] Performed By: #### B HB, 50905-5 #### [facility] CLIA [id number] [place] [address] [place] Chloride [Moles/Vol] 108 mmol/L High 97-105 [facility] Comment on above: Order Comment: Speci men Type: BLOOD SPECIMEN Ordering Facility: [facility] Address: [address] [place] [address] Performed By: #### B HB, 31252-3 #### [facility] CLIA [id number] [address] [place] [address] [place] CO2 [Moles/Vol] 20 mmol/L Low 22-30 [facility] Comment on above: Order Comment: [place] Type: BLOOD SPECIMEN Ordering Facility: [facility] Address: [address] [place] [address] Performed By: #### B [place], 09331-4 #### [facility] CLIA [id number] [place] [address] [place] Creatinine [Mass/Vol] 1.39 mg/dL High 0.58-0.96 [facility] Comment on above: Order Comment: [place] Type: BLOOD SPECIMEN Ordering Facility: [facility] Address: [address] [place] [address] Performed By: #### B HB, 60096-3 #### [facility] CLIA [id number] [address] [place] [address] [place] [facility] [place] Creatinine and Glomerular filtration rate.predicted panel (S/P/Bld) 42 mL/min/1.73m??? Low >=60 [facility] Comment on above: Order Comment: [place] Type: BLOOD SPECIMEN Ordering Facility: [facility] Address: [address] [place] [address] Result Comment: Donna mated Glomerular Filtration Rate [...] actual GFR. Performed By: #### B HB, 65910-4 #### [facility] CLIA [id number] [address] [place] [address] [place] Glucose [Mass/Vol] 74 mg/dL Normal 74-99 [facility] Comment on above: Order Comment: [place] Type: BLOOD SPECIMEN Ordering Facility: [facility] Address: [address] [place] [address] Result Comment: The [place] [employer] (ADA) provides guidance for cutoff [...] Standards of Medical Care in Diabetes 2016, [place] [employer]. Diabetes Care. 2016.39(Suppl 1). Performed By: #### B HB, 11643-8 #### [facility] CLIA [id number] [address] [place] [address] [place] Potassium [Moles/Vol] 4.7 mmol/L Normal 3.7-5.1 [facility] Comment on above: Order Comment: [place] Type: BLOOD SPECIMEN Ordering Facility: [facility] Address: [address] [place] [address] Performed By: #### B HB, 77707-8 #### [facility] CLIA [id number] [address] [place] [address] [place] Sodium [Moles/Vol] 138 mmol/L Normal 136-144 [facility] Comment on above: Order Comment: [place] Type: BLOOD SPECIMEN Ordering Facility: [facility] Address: [address] [place] [address] Performed By: #### B HB, 35450-0 #### [facility] CLIA [id number] [address] [place] [address] [place] Urea nitrogen [Mass/Vol] 25 mg/dL High 7-21 [facility] Comment on above: Order Comment: [place] Type: BLOOD SPECIMEN Ordering Facility: [facility] Address: [address] [place] [address] Performed By: #### B HB, 03186-8 #### [facility] CLIA [id number] [address] [place] [address] [place] CBC panel Auto (Bld)on 09-01 Erythrocyte distribution width (RBC) [Ratio] 14.7 % Normal 11.5-15.0 [facility] Comment on above: Order Comment: Speci men Type: BLOOD SPECIMEN Ordering Facility: [facility] Address: [address] [place] [address] Performed By: #### B HB, #### [facility] CLIA [id number] [address] [place] [address] [place] Hematocrit (Bld) [Volume fraction] 29.4 % Low 36.0-46.0 [facility] Comment on above: Order Comment: Speci men Type: BLOOD SPECIMEN Ordering Facility: [facility] Address: [address] [place] [address] Performed By: #### B HB, #### [facility] CLIA [id number] [address] [place] [address] [place] Hemoglobin (Bld) [Mass/Vol] 9.1 g/dL Low 11.5-15.5 [facility] Comment on above: Order Comment: Speci men Type: BLOOD SPECIMEN Ordering Facility: [facility] Address: [address] [place] [address] Performed By: #### B HB, #### [facility] CLIA [id number] [address] [place] [address] [place] MCH (RBC) [Entitic mass] 24.4 pg Low 26.0-34.0 [facility] Comment on above: Order Comment: Speci men Type: BLOOD SPECIMEN Ordering Facility: [facility] Address: [address] [place] [address] Performed By: #### B HB, #### [facility] CLIA [id number] [address] [place] [address] [place] MCHC (RBC) [Mass/Vol] 31.0 g/dL Normal 30.5-36.0 [facility] Comment on above: Order Comment: Speci men Type: BLOOD SPECIMEN Ordering Facility: [facility] Address: [address] [place] [address] Performed By: #### B HB, #### [facility] CLIA [id number] [address] [place] [address] [place] MCV (RBC) [Entitic vol] 78.8 fL Low 80.0-100.0 [facility] Comment on above: Order Comment: Speci men Type: BLOOD SPECIMEN Ordering Facility: [facility] Address: [address] [place] [address] Performed By: #### B HB, #### [facility] CLIA [id number] [address] [place] [address] [place] Nucleated RBC (Bld) [#/Vol] 10*3/uL Normal <0.01 [facility] Comment on above: Order Comment: Speci men Type: BLOOD SPECIMEN Ordering Facility: [facility] Address: [address] [place] [address] Performed By: #### B HB, #### [facility] CLIA [id number] [address] [place] [address] [place] Platelet mean volume (Bld) [Entitic vol] 10.8 fL Normal 9.0-12.7 [facility] Comment on above: Order Comment: Speci men Type: BLOOD SPECIMEN Ordering Facility: [facility] Address: [address] [place] [address] Performed By: #### B HB, #### [facility] CLIA [id number] [address] [place] [address] [place] Platelets (Bld) [#/Vol] 275 10*3/uL Normal 150-400 [facility] Comment on above: Order Comment: Speci men Type: BLOOD SPECIMEN Ordering Facility: [facility] Address: [address] [place] [address] Performed By: #### B HB, #### [facility] CLIA [id number] [address] [place] [address] [place] RBC (Bld) [#/Vol] 3.73 10*6/uL Low 3.90-5.20 [facility] Comment on above: Order Comment: Speci men Type: BLOOD SPECIMEN Ordering Facility: [facility] Address: [address] [place] [address] Performed By: #### B HB, 90470-0 #### [facility] CLIA [id number] [address] [place] [address] [place] WBC (Bld) [#/Vol] 7.48 10*3/uL Normal 3.70-11.00 [facility] Comment on above: Order Comment: Speci men Type: BLOOD SPECIMEN Ordering Facility: [facility] Address: [address] [place] [address] Performed By: #### B HB, 50035-0 #### [facility] CLIA [id number] [place] [id number] [place] CONSULTon 09-01-2023 CONSULT HNO ID: [id number] Author: NORMAN ROUSSEAU RN Service: ? Author [...] 2023 TIME: 10:44 AM PAGER/CONTACT #: Normal [facility] Magnesium SerPl-mCncon 09-01 Magnesium [Mass/Vol] 1.5 mg/dL Low 1.7-2.3 [facility] Comment on above: Order Comment: Speci men Type: BLOOD SPECIMEN Ordering Facility: [facility] Address: [address] [place] [address] Performed By: #### [place], [id number] #### [facility] CLIA [id number] [place] [id number] [place] URINALYSIS, REFLEX MICROSCOP ICon 09-01-2023 Bacteria LM.HPF (Urine sed) [#/Area] Few Abnormal None [facility]en [place] [facility] [facility] Comment on above: Order Comment: Speci men Type: BLOOD SPECIMEN Ordering Facility: [facility] Address: [address] [place] [address] Performed By: #### B HB, #### [facility] CLIA [id number] [address] [place] [address] [place] Bilirubin Ql (U) Negative Normal Negative [facility] Comment on above: Order Comment: Speci men Type: BLOOD SPECIMEN Ordering Facility: [facility] Address: [address] [place] [address] Performed By: #### B HB, #### [facility] CLIA [id number] [address] [place] [address] [place] Clarity (Unsp spec) Turbid Abnormal Clear [facility] Comment on above: Order Comment: Speci men Type: BLOOD SPECIMEN Ordering Facility: [facility] Address: [address] [place] [address] Performed By: #### B HB, #### [facility] CLIA [id number] [address] [place] [address] [place] Color (U) Light Yellow Normal Yellow [facility] Comment on above: Order Comment: Speci men Type: BLOOD SPECIMEN Ordering Facility: [facility] Address: [address] [place] [address] Performed By: #### B HB, #### [facility] CLIA [id number] [address] [place] [address] [place] Epithelial cells LM.HPF (Urine sed) [#/Area] Few Normal [facility] Comment on above: Order Comment: Speci men Type: BLOOD SPECIMEN Ordering Facility: [facility] Address: [address] [place] [address] Performed By: #### B HB, #### [facility] CLIA [id number] [address] [place] [address] [place] Glucose Test strip (U) [Mass/Vol] Negative Normal Trace, Negative [facility] Comment on above: Order Comment: Speci men Type: BLOOD SPECIMEN Ordering Facility: [facility] Address: [address] [place] [address] Performed By: #### B HB, #### [facility] CLIA [id number] [address] [place] [address] [place] Hemoglobin Ql (U) 1+ Abnormal Negative, Trace [facility] Comment on above: Order Comment: Speci men Type: BLOOD SPECIMEN Ordering Facility: [facility] Address: [address] [place] [address] Performed By: #### B HB, 25743-6 #### [facility] CLIA [id number] [address] [place] [address] [place] Ketones Ql (U) Negative Normal Negative, Trace [facility] Comment on above: Order Comment: Speci men Type: BLOOD SPECIMEN Ordering Facility: [facility] Address: [address] [place] [address] Performed By: #### B HB, #### [facility] CLIA [id number] [address] [place] [address] [place] Leukocyte esterase Test strip Ql (U) 500 Yuan/uL Abnormal Negative, 25 Yuan/uL [facility] Comment on above: Order Comment: Speci men Type: BLOOD SPECIMEN Ordering Facility: [facility] Address: [address] [place] [address] Performed By: #### B HB, #### [facility] CLIA [id number] [address] [place] [address] [place] Nitrite Ql (U) Negative Normal Negative [facility] Comment on above: Order Comment: Speci men Type: BLOOD SPECIMEN Ordering Facility: [facility] Address: [address] [place] [address] Performed By: #### B HB, #### [facility] CLIA [id number] [address] [place] [address] [place] pH (U) 6.0 [pH] Normal 5.0-8.0 [facility] Comment on above: Order Comment: Speci men Type: BLOOD SPECIMEN Ordering Facility: [facility] Address: [address] [place] [address] Performed By: #### B HB, #### [facility] CLIA [id number] [address] [place] [address] [place] Protein (U) [Mass/Vol] 1+ Abnormal Trace, Negative [facility] Comment on above: Order Comment: Speci men Type: BLOOD SPECIMEN Ordering Facility: [facility] Address: [address] [place] [address] Performed By: #### B HB, #### [facility] CLIA [id number] [address] [place] [address] [place] RBC LM.HPF (Urine sed) [#/Area] /[HPF] Abnormal 0-3 /HPF [facility] Comment on above: Order Comment: Speci men Type: BLOOD SPECIMEN Ordering Facility: [facility] Address: [address] [place] [address] Performed By: #### B HB, #### [facility] CLIA [id number] [address] [place] [address] Specific gravity (U) [Rel density] 1.011 Normal 1.005-1.030 [facility] Comment on above: Order Comment: Speci men Type: BLOOD SPECIMEN Ordering Facility: [facility] Address: [address] [place] [address] Performed By: #### B HB, #### [facility] CLIA [id number] [address] [place] [address] [place] Urobilinogen Ql (U) Negative Normal Negative [facility] Comment on above: Order Comment: Speci men Type: BLOOD SPECIMEN Ordering Facility: [facility] Address: [address] [place] [address] Performed By: #### B HB, #### [facility] CLIA [id number] [address] [place] [address] [place] WBC LM.HPF (Urine sed) [#/Area] /[HPF] Abnormal 0-5 /HPF [facility] Comment on above: Order Comment: Speci men Type: BLOOD SPECIMEN Ordering Facility: [facility] Address: [address] [place] [address] Performed By: #### B HB, #### [facility] CLIA [id number] [address] [place] [address] [place] ALLIED HEALTHon 08-31-2023 ALLIED HEALTH HNO ID: [id number] Author: LAKISHA LITTLE RT(R) Service: ? Author [...] RT Chriss(R) August 31, 2023 4:44 AM [facility] Bacteria Bld Culton 08-31-19 24 Bacteria identified Cx Nom (Bld) CULTURE, BLOOD: No growth 5 days Normal [facility] Comment on above: Performed By: #### 6 00-7 ####[facility] [id number] [place] [address] [place] Bacteria Ur Culton [...] technique or straight catheterization for???urine???collectio n. Normal [facility] Comment on above: Performed By: #### 6 30-4 #### [facility] CLIA [id number] [address] [place] [address] [place] CBC W Auto Differential pane l (Bld)on 08-31-2023 Basophils (Bld) [#/Vol] 0.03 10*3/uL Normal <0.11 [facility] Comment on above: Order Comment: Speci men Type: BLOOD SPECIMEN Ordering Facility: [facility] Address: [address] [place] [address] Performed By: #### B HB, #### [facility] CLIA [id number] [address] [place] [address] [place] Basophils/100 WBC (Bld) 0.3 % Normal [facility] Comment on above: Order Comment: Speci men Type: BLOOD SPECIMEN Ordering Facility: [facility] Address: [address] [place] [address] Performed By: #### B HB, #### [facility] CLIA [id number] [address] [place] [address] [place] Differential cell count method Nom (Bld) Auto Normal [facility] Comment on above: Order Comment: Speci men Type: BLOOD SPECIMEN Ordering Facility: [facility] Address: [address] [place] [address] Performed By: #### B HB, #### [facility] CLIA [id number] [address] [place] [address] [place] Eosinophils (Bld) [#/Vol] 10*3/uL Normal <0.46 [facility] Comment on above: Order Comment: Speci men Type: BLOOD SPECIMEN Ordering Facility: [facility] Address: [address] [place] [address] Performed By: #### B HB, #### [facility] CLIA [id number] [address] [place] [address] [place] Eosinophils/100 WBC (Bld) 0.1 % Normal [facility] Comment on above: Order Comment: Speci men Type: BLOOD SPECIMEN Ordering Facility: [facility] Address: [address] [place] [address] Performed By: #### B HB, #### [facility] CLIA [id number] [address] [place] [address] [place] Erythrocyte distribution width (RBC) [Ratio] 14.5 % Normal 11.5-15.0 [facility] Comment on above: Order Comment: Speci men Type: BLOOD SPECIMEN Ordering Facility: [facility] Address: [address] [place] [address] Performed By: #### B HB, #### [facility] CLIA [id number] [address] [place] [address] [place] Hematocrit (Bld) [Volume fraction] 31.5 % Low 36.0-46.0 [facility] Comment on above: Order Comment: Speci men Type: BLOOD SPECIMEN Ordering Facility: [facility] Address: [address] [place] [address] Performed By: #### B HB, #### [facility] CLIA [id number] [address] [place] [address] [place] Hemoglobin (Bld) [Mass/Vol] 10.0 g/dL Low 11.5-15.5 [facility] Comment on above: Order Comment: Speci men Type: BLOOD SPECIMEN Ordering Facility: [facility] Address: [address] [place] [address] Performed By: #### B HB, #### [facility] CLIA [id number] [address] [place] [address] [place] Immature granulocytes (Bld) [#/Vol] 0.06 10*3/uL Normal <0.10 [facility] Comment on above: Order Comment: Speci men Type: BLOOD SPECIMEN Ordering Facility: [facility] Address: [address] [place] [address] Performed By: #### B HB, #### [facility] CLIA [id number] [address] [place] [address] [place] Immature granulocytes/100 WBC (Bld) 0.7 % Normal [facility] Comment on above: Order Comment: Speci men Type: BLOOD SPECIMEN Ordering Facility: [facility] Address: [address] [place] [address] Performed By: #### B HB, #### [facility] CLIA [id number] [address] [place] [address] [place] Lymphocytes (Bld) [#/Vol] 1.67 10*3/uL Normal 1.00-4.00 [facility] Comment on above: Order Comment: Speci men Type: BLOOD SPECIMEN Ordering Facility: [facility] Address: [address] [place] [address] Performed By: #### B HB, #### [facility] CLIA [id number] [address] [place] [address] [place] Lymphocytes/100 WBC (Bld) 18.8 % Normal [facility] Comment on above: Order Comment: Speci men Type: BLOOD SPECIMEN Ordering Facility: [facility] Address: [address] [place] [address] Performed By: #### B HB, #### [facility] CLIA [id number] [address] [place] [address] [place] MCH (RBC) [Entitic mass] 24.5 pg Low 26.0-34.0 [facility] Comment on above: Order Comment: Speci men Type: BLOOD SPECIMEN Ordering Facility: [facility] Address: [address] [place] [address] Performed By: #### B HB, #### [facility] CLIA [id number] [address] [place] [address] [place] MCHC (RBC) [Mass/Vol] 31.7 g/dL Normal 30.5-36.0 [facility] Comment on above: Order Comment: Speci men Type: BLOOD SPECIMEN Ordering Facility: [facility] Address: [address] [place] [address] Performed By: #### B HB, #### [facility] CLIA [id number] [address] [place] [address] [place] MCV (RBC) [Entitic vol] 77.2 fL Low 80.0-100.0 [facility] Comment on above: Order Comment: Speci men Type: BLOOD SPECIMEN Ordering Facility: [facility] Address: [address] [place] [address] Performed By: #### B HB, #### [facility] CLIA [id number] [address] [place] [address] [place] Monocytes (Bld) [#/Vol] 0.71 10*3/uL Normal <0.87 [facility] Comment on above: Order Comment: Speci men Type: BLOOD SPECIMEN Ordering Facility: [facility] Address: [address] [place] [address] Performed By: #### B HB, #### [facility] CLIA [id number] [address] [place] [address] [place] Monocytes/100 WBC (Bld) 8.0 % Normal [facility] Comment on above: Order Comment: Speci men Type: BLOOD SPECIMEN Ordering Facility: [facility] Address: [address] [place] [address] Performed By: #### B HB, #### [facility] CLIA [id number] [address] [place] [address] [place] Neutrophils (Bld) [#/Vol] 6.39 10*3/uL Normal 1.45-7.50 [facility] Comment on above: Order Comment: Speci men Type: BLOOD SPECIMEN Ordering Facility: [facility] Address: [address] [place] [address] Performed By: #### B HB, #### [facility] CLIA [id number] [address] [place] [address] [place] Neutrophils/100 WBC (Bld) 72.1 % Normal [facility] Comment on above: Order Comment: Speci men Type: BLOOD SPECIMEN Ordering Facility: [facility] Address: [address] [place] [address] Performed By: #### B HB, #### [facility] CLIA [id number] [address] [place] [address] [place] Nucleated RBC (Bld) [#/Vol] 10*3/uL Normal <0.01 [facility] Comment on above: Order Comment: Speci men Type: BLOOD SPECIMEN Ordering Facility: [facility] Address: [address] [place] [address] Performed By: #### B HB, #### [facility] CLIA [id number] [address] [place] [address] [place] Nucleated RBC/100 WBC (Bld) [Ratio] 0.0 /100 WBC Normal [facility] Comment on above: Order Comment: Speci men Type: BLOOD SPECIMEN Ordering Facility: [facility] Address: [address] [place] [address] Performed By: #### B HB, #### [facility] CLIA [id number] [address] [place] [address] [place] Platelet mean volume (Bld) [Entitic vol] 11.3 fL Normal 9.0-12.7 [facility] Comment on above: Order Comment: Speci men Type: BLOOD SPECIMEN Ordering Facility: [facility] Address: [address] [place] [address] Performed By: #### B HB, #### [facility] CLIA [id number] [address] [place] [address] [place] Platelets (Bld) [#/Vol] 316 10*3/uL Normal 150-400 [facility] Comment on above: Order Comment: Speci men Type: BLOOD SPECIMEN Ordering Facility: [facility] Address: [address] [place] [address] Performed By: #### B HB, #### [facility] CLIA [id number] [address] [place] [address] [place] RBC (Bld) [#/Vol] 4.08 10*6/uL Normal 3.90-5.20 [facility] Comment on above: Order Comment: Speci men Type: BLOOD SPECIMEN Ordering Facility: [facility] Address: [address] [place] [address] Performed By: #### B HB, #### [facility] CLIA [id number] [address] [place] [address] [place] WBC (Bld) [#/Vol] 8.87 10*3/uL Normal 3.70-11.00 [facility] Comment on above: Order Comment: Speci men Type: BLOOD SPECIMEN Ordering Facility: [facility] Address: [address] [place] [address] Performed By: #### B HB, 51527-2 #### [facility] CLIA [id number] [address] [place] [address] [place] Comprehensive metabolic 2000 panelon 08-31-2023 Albumin [Mass/Vol] 3.7 g/dL Low 3.9-4.9 [facility] Comment on above: Order Comment: Speci men Type: BLOOD SPECIMEN Ordering Facility: [facility] Address: [address] [place] [address] Performed By: #### B HB, #### [facility] CLIA [id number] [address] [place] [address] [place] ALP [Catalytic activity/Vol] 99 U/L Normal 34-123 [facility] Comment on above: Order Comment: Speci men Type: BLOOD SPECIMEN Ordering Facility: [facility] Address: [address] [place] [address] Performed By: #### B HB, #### [facility] CLIA [id number] [address] [place] [address] [place] ALT [Catalytic activity/Vol] U/L Low 7-38 [facility] Comment on above: Order Comment: Speci men Type: BLOOD SPECIMEN Ordering Facility: [facility] Address: [address] [place] [address] Performed By: #### B HB, 31385-7 #### [facility] CLIA [id number] [address] [place] [address] [place] Anion gap [Moles/Vol] 12 mmol/L Normal 9-18 [facility] Comment on above: Order Comment: Speci men Type: BLOOD SPECIMEN Ordering Facility: [facility] Address: [address] [place] [address] Performed By: #### B HB, 46142-7 #### [facility] CLIA [id number] [address] [place] [address] [place] AST [Catalytic activity/Vol] 7 U/L Low 13-35 [facility] Comment on above: Order Comment: Speci men Type: BLOOD SPECIMEN Ordering Facility: [facility] Address: [address] [place] [address] Performed By: #### B HB, #### [facility] CLIA [id number] [address] [place] [address] [place] Bilirubin [Mass/Vol] 0.3 mg/dL Normal 0.2-1.3 [facility] Comment on above: Order Comment: Speci men Type: BLOOD SPECIMEN Ordering Facility: [facility] Address: [address] [place] [address] Performed By: #### B HB, #### [facility] CLIA [id number] [address] [place] [address] [place] Calcium [Mass/Vol] 8.7 mg/dL Normal 8.5-10.2 [facility] Comment on above: Order Comment: Speci men Type: BLOOD SPECIMEN Ordering Facility: [facility] Address: [address] [place] [address] Performed By: #### B HB, #### [facility] CLIA [id number] [address] [place] [address] [place] Chloride [Moles/Vol] 99 mmol/L Normal 97-105 [facility] Comment on above: Order Comment: Speci men Type: BLOOD SPECIMEN Ordering Facility: [facility] Address: [address] [place] [address] Performed By: #### B HB, #### [facility] CLIA [id number] [address] [place] [address] [place] CO2 [Moles/Vol] 19 mmol/L Low 22-30 [facility] Comment on above: Order Comment: Speci men Type: BLOOD SPECIMEN Ordering Facility: [facility] Address: [address] [place] [address] Performed By: #### B HB, #### [facility] CLIA [id number] [address] [place] [address] [place] Creatinine [Mass/Vol] 2.15 mg/dL High 0.58-0.96 [facility] Comment on above: Order Comment: [place] Type: BLOOD SPECIMEN Ordering Facility: [facility] Address: [address] [place] [address] Performed By: #### B HB, 24901-5 #### [facility] CLIA [id number] [address] [place] [address] [place] Creatinine and Glomerular filtration rate.predicted panel (S/P/Bld) 25 mL/min/1.73m??? Low >=60 [facility] Comment on above: Order Comment: [place] Type: BLOOD SPECIMEN Ordering Facility: [facility] Address: [address] [place] [address] Result Comment: Donna mated Glomerular Filtration Rate [...] actual GFR. Performed By: #### B HB, 13010-0 #### [facility] CLIA [id number] [address] [place] [address] [place] Glucose [Mass/Vol] 428 mg/dL High 74-99 [facility] Comment on above: Order Comment: [place] Type: BLOOD SPECIMEN Ordering Facility: [facility] Address: [address] [place] [address] Result Comment: The [place] [employer] (ADA) provides guidance for cutoff [...] Standards of Medical Care in Diabetes 2016, [place] [employer]. Diabetes Care. 2016.39(Suppl 1). Performed By: #### B HB, 09861-8 #### [facility] CLIA [id number] [address] [place] [address] [place] Potassium [Moles/Vol] 5.2 mmol/L High 3.7-5.1 [facility] Comment on above: Order Comment: Speci men Type: BLOOD SPECIMEN Ordering Facility: [facility] Address: [address] [place] [address] Performed By: #### B HB, 37428-4 #### [facility] CLIA [id number] [address] [place] [address] [place] Protein [Mass/Vol] 9.1 g/dL High 6.3-8.0 [facility] Comment on above: Order Comment: [place] Type: BLOOD SPECIMEN Ordering Facility: [facility] Address: [address] [place] [address] Performed By: #### B HB, 86182-8 #### [facility] CLIA [id number] [address] [place] [address] [place] Sodium [Moles/Vol] 130 mmol/L Low 136-144 [facility] Comment on above: Order Comment: [place] Type: BLOOD SPECIMEN Ordering Facility: [facility] Address: [address] [place] [address] Performed By: #### B HB, 31398-2 #### [facility] CLIA [id number] [address] [place] [address] [place] Urea nitrogen [Mass/Vol] 39 mg/dL High 7-21 [facility] Comment on above: Order Comment: Speci men Type: BLOOD SPECIMEN Ordering Facility: [facility] Address: [address] [place] [address] Performed By: #### B HB, 45057-4 #### [facility] CLIA [id number] [address] [place] [address] [place] ECG COMPLETEon 08-31-2023 ECG COMPLETE Ventricular Rate : 7 1 BPM Atrial Rate : 71 BPM P-R Interval : 166 ms QRS Duration : 80 ms Q-T Interval : 396 ms QTC Calculation(Bazett) : 431 ms Calculated P Gasquet : 82 degrees Calculated R Gasquet : 71 degrees Calculated T Gasquet : 48 degrees Sinus rhythm Normal ECG NO STEMI. 0752 Confirmed by MD DE LEON MICHAEL ([id number]), editor managing newspaper THERESA SEAY ([id number]) on 08/31/2023 1:24:15 PM NAME : ASILINN WHEELER PID : [id number] : 1960 Gender : Female Race : ORD : [id number] Procedure Date : Aug 31 2023 07:16:42 Edit Date : Aug 31 2023 13:24:16 Diagnosis: Sinus rhythm Normal ECG NO STEMI. 0752 Confirmed by MD DEL EON MICHAEL ([id number]), editor managing newspaper THERESA SEAY ([id number]) on 08/31/2023 1:24:15 PM Test Reason : Chest Pain Location : 402 : FVED fved05 Overread By : MD DE LEON MICHAEL Edited By : THERESA SEAY Referred By : , Acquired by : [id number], [facility] ECG COMPLETE Ventricular Rate : 8 8 BPM Atrial Rate : 88 BPM P-R Interval : 153 ms QRS Duration : 78 ms Q-T Interval : 370 ms QTC Calculation(Bazett) : 448 ms Calculated P Gasquet : 85 degrees Calculated R Gasquet : 69 degrees Calculated T Gasquet : 62 degrees Sinus rhythm Normal ECG NO STEMI. 0604 Confirmed by KASIE SANDOVAL MD ([id number]), editor managing newspaper THERESA SEAY ([id number]) on 08/31/2023 1:02:55 PM NAME : AISLINN WHEELER PID : [id number] : 1960 Gender : Female Race : ORD : [id number] Procedure Date : Aug 31 2023 04:17:52 Edit Date : Aug 31 2023 13:02:57 Diagnosis: Sinus rhythm Normal ECG NO STEMI. 0604 Confirmed by KASIE SANDOVAL MD ([id number]), editor managing newspaper THERESA SEAY ([id number]) on 08/31/2023 1:02:55 PM Test Reason : Arrhythmia Location : 402 : FVED fved05 Overread By : KASIE SANDOVAL MD Edited By : THERESA SEAY Referred By : , Acquired by : [id number], Normal [facility] ED PROV NOTEon 08-31-2023 ED PROV NOTE HNO ID: [id number] Author: RAYNA RHODES PA-C Service: Emergency Medicine Author Type: Physician Operations Research Scientist Type: ED Provider Notes Filed: 08/31/2023 08:06 [...] left foot. Pt states she saw her laborer operator and was directed to come to [...] rarely occurring (more content not included)... Normal [facility] FLUABV+SARS-CoV-2+RSV Pnl Re sp ADRIEL+probeon 08-31-2023 FLUABV+SARS-CoV-2+RS V Pnl Resp ADRIEL+probe COVID 19 RESULT: Not detected The method used is RT-PCR or an equivalent NAAT method. Reference Range(the expected result in uninfected individuals): Not detected INFLUENZA A PCR: Not detected INFLUENZA B PCR: Not detected RSV PCR: Not detected Normal [facility] Comment on above: Performed By: #### 9 5941-1 ####[facility] [id number] [place] [address] [place] Gas and Carbon monoxide pane l (BldV)on 08-31-2023 BASE DEFICIT, VENOUS -5 mmol/L Low -2-0 [facility] Comment on above: Order Comment: Speci men Type: VENOUS BLOOD SPECIMEN Ordering Facility: [facility] Address: [address] [place] [address] Performed By: #### 2 4344-4 #### [facility] CLIA [id number] [place], [place] [address] [place] Body temperature 100.04 [degF] Normal [facility] Comment on above: Order Comment: Speci men Type: VENOUS BLOOD SPECIMEN Ordering Facility: [facility] Address: [address] [place] [address] Performed By: #### 2 4344-4 #### [facility] CLIA [id number] [place] [address] [place] Calcium.ionized (Bld) [Mass/Vol] 1.08 mmol/L Normal 1.08-1.30 [facility] Comment on above: Order Comment: Speci men Type: VENOUS BLOOD SPECIMEN Ordering Facility: [facility] Address: [address] [place] [address] Performed By: #### 2 4344-4 #### [facility] CLIA [id number] [address] [place] [address] [place] Calcium.ionized adjusted to pH 7.4 (BldA) [Moles/Vol] 1.06 mmol/L Low 1.08-1.30 [facility] Comment on above: Order Comment: Speci men Type: VENOUS BLOOD SPECIMEN Ordering Facility: [facility] Address: [address] [place] [address] Performed By: #### 2 4344-4 #### [facility] CLIA [id number] [address] [place] [address] [place] Carboxyhemoglobin (BldV) [Mass fraction] 3.8 % High 0.0-2.0 [facility] Comment on above: Order Comment: Speci men Type: VENOUS BLOOD SPECIMEN Ordering Facility: [facility] Address: [address] [place] [address] Result Comment: Carb oxyhemoglobin Reference Range for Smokers: 2.0-8.0% Performed By: #### 2 4344-4 #### [facility] CLIA [id number] [address] [place] [address] [place] Chloride [Moles/Vol] 106 mmol/L High 97-105 [facility] Comment on above: Order Comment: Speci men Type: VENOUS BLOOD SPECIMEN Ordering Facility: [facility] Address: [address] [place] [address] Performed By: #### 2 4344-4 #### [facility] CLIA [id number] [address] [place] [address] [place] CO2 (BldV) [Partial pressure] 35 mm[Hg] Low 42-55 [facility] Comment on above: Order Comment: Speci men Type: VENOUS BLOOD SPECIMEN Ordering Facility: [facility] Address: [address] [place] [address] Performed By: #### 2 4344-4 #### [facility] CLIA [id number] [address] [place] [address] [place] CO2 adjusted to patient's actual temperature (BldV) [Partial pressure] Normal [facility] Comment on above: Order Comment: Speci men Type: VENOUS BLOOD SPECIMEN Ordering Facility: [facility] Address: [address] [place] [address] Performed By: #### 2 4344-4 #### [facility] CLIA [id number] [address] [place] [address] [place] Glucose [Mass/Vol] 460 mg/dL High 60-105 [facility] Comment on above: Order Comment: Speci men Type: VENOUS BLOOD SPECIMEN Ordering Facility: [facility] Address: [address] [place] [address] Performed By: #### 2 4344-4 #### [facility] CLIA [id number] [address] [place] [address] [place] HCO3 (Bld) [Moles/Vol] 19 mmol/L Low 24-28 [facility] Comment on above: Order Comment: Speci men Type: VENOUS BLOOD SPECIMEN Ordering Facility: [facility] Address: [address] [place] [address] Performed By: #### 2 4344-4 #### [facility] CLIA [id number] [address] [place] [address] [place] Hematocrit (Bld) [Volume fraction] 29.7 % Low 36.0-46.0 [facility] Comment on above: Order Comment: Speci men Type: VENOUS BLOOD SPECIMEN Ordering Facility: [facility] Address: [address] [place] [address] Performed By: #### 2 4344-4 #### [facility] CLIA [id number] [address] [place] [address] [place] Hemoglobin (Bld) [Mass/Vol] 9.6 g/dL Low 11.5-15.5 [facility] Comment on above: Order Comment: Speci men Type: VENOUS BLOOD SPECIMEN Ordering Facility: [facility] Address: [address] [place] [address] Performed By: #### 2 4344-4 #### [facility] CLIA [id number] [address] [place] [address] [place] Lactate [Moles/Vol] 1.1 mmol/L Normal 0.5-2.2 [facility] Comment on above: Order Comment: Speci men Type: VENOUS BLOOD SPECIMEN Ordering Facility: [facility] Address: [address] [place] [address] Performed By: #### 2 4344-4 #### [facility] CLIA [id number] [address] [place] [address] [place] Methemoglobin (Bld) [Mass fraction] 1.1 % Normal 0.0-1.5 [facility] Comment on above: Order Comment: Speci men Type: VENOUS BLOOD SPECIMEN Ordering Facility: [facility] Address: [address] [place] [address] Performed By: #### 2 4344-4 #### [facility] CLIA [id number] [address] [place] [address] [place] O2 THERAPY RA=Room Air Normal [facility] Comment on above: Order Comment: Speci men Type: VENOUS BLOOD SPECIMEN Ordering Facility: [facility] Address: [address] [place] [address] Performed By: #### 2 4344-4 #### [facility] CLIA [id number] [address] [place] [address] [place] Oxygen (BldV) [Partial pressure] 118 mm[Hg] High 35-45 [facility] Comment on above: Order Comment: Speci men Type: VENOUS BLOOD SPECIMEN Ordering Facility: [facility] Address: [address] [place] [address] Performed By: #### 2 4344-4 #### [facility] CLIA [id number] [address] [place] [address] [place] Oxygen adjusted to patient's actual temperature (BldV) [Partial pressure] Normal [facility] Comment on above: Order Comment: Speci men Type: VENOUS BLOOD SPECIMEN Ordering Facility: [facility] Address: [address] [place] [address] Performed By: #### 2 4344-4 #### [facility] CLIA [id number] [address] [place] [address] [place] Oxygen saturation in Venous blood 99 % High 60-85 [facility] Comment on above: Order Comment: Speci men Type: VENOUS BLOOD SPECIMEN Ordering Facility: [facility] Address: [address] [place] [address] Performed By: #### 2 4344-4 #### [facility] CLIA [id number] [address] [place] [address] [place] Oxyhemoglobin (BldV) [Mass fraction] 94 % High 60-85 [facility] Comment on above: Order Comment: Speci men Type: VENOUS BLOOD SPECIMEN Ordering Facility: [facility] Address: [address] [place] [address] Performed By: #### 2 4344-4 #### [facility] CLIA [id number] [address] [place] [address] [place] pH (BldV) 7.37 [pH] Normal 7.32-7.42 [facility] Comment on above: Order Comment: Speci men Type: VENOUS BLOOD SPECIMEN Ordering Facility: [facility] Address: [address] [place] [address] Performed By: #### 2 4344-4 #### [facility] CLIA [id number] [address] [place] [address] [place] pH adjusted to patient's actual temperature (BldV) Normal [facility] Comment on above: Order Comment: Speci men Type: VENOUS BLOOD SPECIMEN Ordering Facility: [facility] Address: [address] [place] [address] Performed By: #### 2 4344-4 #### [facility] CLIA [id number] [address] [place] [address] [place] Potassium [Moles/Vol] 5.3 mmol/L High 3.5-5.0 [facility] Comment on above: Order Comment: Speci men Type: VENOUS BLOOD SPECIMEN Ordering Facility: [facility] Address: [address] [place] [address] Performed By: #### 2 4344-4 #### [facility] CLIA [id number] [address] [place] [address] [place] Sodium [Moles/Vol] 133 mmol/L Low 136-144 [facility] Comment on above: Order Comment: Speci men Type: VENOUS BLOOD SPECIMEN Ordering Facility: [facility] Address: [facility] [place] [address] Performed By: #### 2 4344-4 #### [facility] CLIA [id number] [address] [place] [address] [place] HISTORY PHYSICALon 4 HISTORY PHYSICAL HNO ID: [id number] Author: ANTHONY BARROW MD Service: Hospital Medicine [...] left foot ulcer that patient was seen laborer operator as outpatient for and advised her [...] hospital 08/31/23 1115 activity - mobilize patient (sd,oh) VTE Prophylaxis: VTE prophylaxis appropriate SIGNATURE: Anthony Barrow MD PATIENT NAME: Aislinn Wheeler DATE: August 31, 2023 TIME: 11:03 AM PAGER/CONTACT #: Normal [facility] KETONES/ACETONE/BHBon 2023 Beta hydroxybutyrate [Moles/Vol] 0.50 mmol/L High <0.28 [facility] Comment on above: Order Comment: Speci men Type: BLOOD SPECIMEN Ordering Facility: [facility] Address: [address] [place] [address] Performed By: #### [place], 32605-4 #### [facility] CLIA [id number] [address] [place] [address] [place] POTASSIUM BLDon 08-31-2023 Potassium [Moles/Vol] 4.6 mmol/L Normal 3.7-5.1 [facility] Comment on above: Order Comment: Speci men Type: BLOOD SPECIMEN Ordering Facility: [facility] Address: [address] [place] [address] Performed By: #### [place], [address]-8 #### [facility] CLIA [id number] [address] [place] [address] [place] SEPSIS LACTATEon 08-31-2023 Lactate [Moles/Vol] 1.2 mmol/L Normal 0.0-2.0 [facility] Comment on above: Order Comment: Speci men Type: BLOOD SPECIMEN Ordering Facility: [facility] Address: [address] [place] [address] Performed By: #### B HB, #### [facility] CLIA [id number] [address] [place] [address] [place] Urinalysis complete panel (U )on 08-31-2023 Bacteria LM.HPF (Urine sed) [#/Area] Many Abnormal None Seen [facility] Comment on above: Order Comment: Speci men Type: BLOOD SPECIMEN Ordering Facility: [facility] Address: [address] [place] [address] Performed By: #### B HB, #### [facility] CLIA [id number] [address] [place] [address] [place] Bilirubin Ql (U) Negative Normal Negative [facility] Comment on above: Order Comment: Speci men Type: BLOOD SPECIMEN Ordering Facility: [facility] Address: [address] [place] [address] Performed By: #### B HB, #### [facility] CLIA [id number] [address] [place] [address] [place] Clarity (Unsp spec) Turbid Abnormal Clear [facility] Comment on above: Order Comment: Speci men Type: BLOOD SPECIMEN Ordering Facility: [facility] Address: [address] [place] [address] Performed By: #### B HB, #### [facility] CLIA [id number] [address] [place] [address] [place] Color (U) Light Yellow Normal Yellow [facility] Comment on above: Order Comment: Speci men Type: BLOOD SPECIMEN Ordering Facility: [facility] Address: [address] [place] [address] Performed By: #### B HB, #### [facility] CLIA [id number] [address] [place] [address] [place] Glucose Test strip (U) [Mass/Vol] 4+ Abnormal Trace, Negative [facility] Comment on above: Order Comment: Speci men Type: BLOOD SPECIMEN Ordering Facility: [facility] Address: [address] [place] [address] Performed By: #### B HB, #### [facility] CLIA [id number] [address] [place] [address] [place] Hemoglobin Ql (U) Trace Normal Negative, Trace [facility] Comment on above: Order Comment: Speci men Type: BLOOD SPECIMEN Ordering Facility: [facility] Address: [address] [place] [address] Performed By: #### B HB, #### [facility] CLIA [id number] [address] [place] [address] [place] Ketones Ql (U) Negative Normal Negative, Trace [facility] Comment on above: Order Comment: Speci men Type: BLOOD SPECIMEN Ordering Facility: [facility] Address: [address] [place] [address] Performed By: #### B HB, #### [facility] CLIA [id number] [address] [place] [address] [place] Leukocyte esterase Test strip Ql (U) 500 Yuan/uL Abnormal Negative, 25 Yuan/uL [facility] Comment on above: Order Comment: Speci men Type: BLOOD SPECIMEN Ordering Facility: [facility] Address: [address] [place] [address] Performed By: #### B HB, #### [facility] CLIA [id number] [address] [place] [address] [place] Nitrite Ql (U) Negative Normal Negative [facility] Comment on above: Order Comment: Speci men Type: BLOOD SPECIMEN Ordering Facility: [facility] Address: [address] [place] [address] Performed By: #### B HB, #### [facility] CLIA [id number] [address] [place] [address] [place] pH (U) 6.0 [pH] Normal 5.0-8.0 [facility] Comment on above: Order Comment: Speci men Type: BLOOD SPECIMEN Ordering Facility: [facility] Address: [address] [place] [address] Performed By: #### B HB, #### [facility] CLIA [id number] [address] [place] Protein (U) [Mass/Vol] 1+ Abnormal Trace, Negative [facility] Comment on above: Order Comment: Speci men Type: BLOOD SPECIMEN Ordering Facility: [facility] Address: [address] [place] [address] Performed By: #### B HB, #### [facility] CLIA [id number] [address] [place] [address] [place] RBC LM.HPF (Urine sed) [#/Area] 3-5 /HPF Abnormal 0-3 /HPF [facility] Comment on above: Order Comment: Speci men Type: BLOOD SPECIMEN Ordering Facility: [facility] Address: [address] [place] [address] Performed By: #### B HB, #### [facility] CLIA [id number] [address] [place] [address] [place] Specific gravity (U) [Rel density] 1.017 Normal 1.005-1.030 [facility] Comment on above: Order Comment: Speci men Type: BLOOD SPECIMEN Ordering Facility: [facility] Address: [address] [place] [address] Performed By: #### B HB, #### [facility] CLIA [id number] [address] [place] [address] Urobilinogen Ql (U) Negative Normal Negative [facility] Comment on above: Order Comment: Speci men Type: BLOOD SPECIMEN Ordering Facility: [facility] Address: [address] [place] [address] Performed By: #### B HB, #### [facility] CLIA [id number] [address] [place] [address] [place] WBC LM.HPF (Urine sed) [#/Area] /[HPF] Abnormal 0-5 /HPF [facility] Comment on above: Order Comment: Speci men Type: BLOOD SPECIMEN Ordering Facility: [facility] Address: [address] [place] [address] Performed By: #### B HB, #### [facility] CLIA [id number] [facility] [place] [address] [place] XR CHEST 1V [...] Fatigue and malaise, Fatigue and malaise (accession [id number]), Osteomyelitis (accession [id number]) MQ: XC1_5 Comparison: CT 01/17/2021, radiograph 01/17/2021 [...] performed for increased sensitivity, as clinically warranted. Producer Director: GUILLE Transcribe Date/Time: Aug 31 2023 4:46A Dictated by : TAURUS MORTON MD This examination was interpreted and the report reviewed and electronically signed by: TAURUS MORTON MD on Aug 31 2023 4:51AM EST [id number] [facility] XR FOOT 3V AP/LAT/OBL LTon 0 [...] Fatigue and malaise, Fatigue and malaise (accession [id number]), Osteomyelitis (accession [id number]) MQ: XC1_5 Comparison: CT 01/17/2021, radiograph 01/17/2021 [...] performed for increased sensitivity, as clinically warranted. Producer Director: GUILLE Transcribe Date/Time: Aug 31 2023 4:46A Dictated by : TAURUS MORTON MD This examination was interpreted and the report reviewed and electronically signed by: TAURUS MORTON MD on Aug 31 2023 4:51AM EST [id number] Normal [facility] Benzodiazepines Screen Ql (U )on 08-09-2023 Benzodiazepines Ql (U) Negative Normal NEG [facility] Comment on above: Result Comment: Lenny odiazepines screening cut off value = 200 ng/mL This report is intended for use in clinical monitoring or management of patients. Performed By: #### 1 4316-4 #### [facility] ([id number]) [address] [place] [address], FIRST FLO[address] GENERIC ORDERon 08-09-20 23 TEST NAME UQNTPP URINE PAIN PA VEGA QUANT Normal [facility] Comment on above: Result Comment: Wesley sheltoned on 08/09 AT 1743: Previously reported as UQNTPP Performed By: #### C GO #### [facility] ([id number]) [address] [place] [address], [place] [address] TEST RESULT See Below Normal [facility] Comment on above: Result Comment: NOTE TEST RESULT FLAG UNIT REF.RANGE ----- Specimen Validity Quality See below Specimen quality results within acceptable limits Specimen Validity Creatinine 31.8 mg/dL 20.0-300.0 Specimen Validity PH 5.4 4.5-8.0 Specimen Validity Specific [place] 1.006 1.003-1.035 Specimen Validity Oxidants <38 mg/L [...] carboxylic acid (THCA) is a metabolite of ueqex-5-frycywbujfdkjpfdftwj which is the main active component of marijuana. Fentanyl, Urine <6 ng/mL <6 Buprenorphine, Ur <20 ng/mL <20 Methadone Urine <16 ng/mL <16 Methadone metabolite Urine <6 ng/mL <6 EDDP is a metabolite of methadone. Note See Below This test is for medical use only. This test was developed and its performance characteristics determined by [facility] Medicine [place] ([facility]). It has not been cleared or approved by the FDA. [facility] is regulated under CLIA as qualified to perform high-complexity testing. This test is used for clinical purposes. It should not be regarded as investigational or for research. URINE PAIN PANEL QUANT Test Performed By: [facility] [address] [place] [address] Wholesale Account Manager: Oswald Munguia III, M.D. CLIA #[id number] Performed By: #### C GO #### [facility] ([id number]) [address] [place] [address], [place] [address] Operative Reporton 3 Operative Report [id number]#1.00T IFF Normal [facility] Pathology Noteon 08-07-2023 Pathology Note [id number]#1.00 TIFF Normal [facility] ED Note-Physicianon 06-29-20 ED Note-Physician [id number]#1.00T IFF Normal [facility] Patient Letter FTMCon 2022 Patient Letter [facility] (Inserted Image. Grecia ble to display) June 28, 2023 AISLINN WHEELER [address] [place] [id number] : 1960 Dear Aislinn, You missed your [...] any future cancellations. Sincerely, [facility] [address], [place] [address] Pt called and RS'd. Normal [facility] Basic metabolic 2000 panelon 06-23-2023 Anion gap [Moles/Vol] 9 mmol/L Normal 05-08 [facility] Comment on above: Order Comment: Speci men Type: BLOOD SPECIMEN Ordering Facility: [facility] Address: [address] [place] [address] Performed By: #### B , 65627-3 #### [facility] CLIA [id number] [place] [address] [place] Calcium [Mass/Vol] 7.3 mg/dL Low 8.5-10.2 [facility] Comment on above: Order Comment: Speci men Type: BLOOD SPECIMEN Ordering Facility: [facility] Address: [address] [place] [address] Performed By: #### B HB, 888[address]-3 #### [facility] CLIA [id number] [address] [place] [address] [place] Chloride [Moles/Vol] 110 mmol/L High 97-105 [facility] Comment on above: Order Comment: Speci men Type: BLOOD SPECIMEN Ordering Facility: [facility] Address: [address] [place] [address] Performed By: #### B HB, 06636-5 #### [facility] CLIA [id number] [address] [place] [address] [place] CO2 [Moles/Vol] 19 mmol/L Low 22-30 [facility] Comment on above: Order Comment: Speci men Type: BLOOD SPECIMEN Ordering Facility: [facility] Address: [address] [place] [address] Performed By: #### B HB, 35693-4 #### [facility] CLIA [id number] [address] [place] [address] [place] Creatinine [Mass/Vol] 1.39 mg/dL High 0.58-0.96 [facility] Comment on above: Order Comment: Speci men Type: BLOOD SPECIMEN Ordering Facility: [facility] Address: [address] [place] [address] Performed By: #### B HB, 80381-7 #### [facility] CLIA [id number] [address] [place] [address] [place] Creatinine and Glomerular filtration rate.predicted panel (S/P/Bld) 42 mL/min/1.73m??? Low >=60 [facility] Comment on above: Order Comment: Speci men Type: BLOOD SPECIMEN Ordering Facility: [facility] Address: [address] [place] [address] Result Comment: Donna mated Glomerular Filtration Rate [...] actual GFR. Performed By: #### B HB, 62390-5 #### [facility] CLIA [id number] [address] [place] [address] [place] Glucose [Mass/Vol] 157 mg/dL High 74-99 [facility] Comment on above: Order Comment: [place] Type: BLOOD SPECIMEN Ordering Facility: [facility] Address: [address] [place] [address] Result Comment: The [place] [employer] (ADA) provides guidance for cutoff [...] Standards of Medical Care in Diabetes 2016, [place] [employer]. Diabetes Care. 2016.39(Suppl 1). Performed By: #### B HB, 67032-8 #### [facility] CLIA [id number] [address] [place] [address] [place] Potassium [Moles/Vol] 5.1 mmol/L Normal 3.7-5.1 [facility] Comment on above: Order Comment: [place] Type: BLOOD SPECIMEN Ordering Facility: [facility] Address: [address] [place] [address] Performed By: #### B HB, 82357-8 #### [facility] CLIA [id number] [address] [place] [address] [place] Sodium [Moles/Vol] 138 mmol/L Normal 136-144 [facility] Comment on above: Order Comment: [place] Type: BLOOD SPECIMEN Ordering Facility: [facility] Address: [address] [place] [address] Performed By: #### B HB, 17104-8 #### [facility] CLIA [id number] [place] [address] [place] Urea nitrogen [Mass/Vol] 21 mg/dL Normal 7-21 [facility] Comment on above: Order Comment: Speci men Type: BLOOD SPECIMEN Ordering Facility: [facility] Address: [address] [place] [address] Performed By: #### B HB, 72533-5 #### [facility] CLIA [id number] [address] [place] [address] [place] CBC panel Auto (Bld)on 06-23 Erythrocyte distribution width (RBC) [Ratio] 14.4 % Normal 11.5-15.0 [facility] Comment on above: Order Comment: Speci men Type: BLOOD SPECIMEN Ordering Facility: [facility] Address: [address] [place] [address] Performed By: #### B HB, 64578-6 #### [facility] CLIA [id number] [address] [place] [address] [place] Hematocrit (Bld) [Volume fraction] 28.5 % Low 36.0-46.0 [facility] Comment on above: Order Comment: Speci men Type: BLOOD SPECIMEN Ordering Facility: [facility] Address: [address] [place] [address] Performed By: #### B HB, 12134-1 #### [facility] CLIA [id number] [address] [place] [address] [place] Hemoglobin (Bld) [Mass/Vol] 9.0 g/dL Low 11.5-15.5 [facility] Comment on above: Order Comment: Speci men Type: BLOOD SPECIMEN Ordering Facility: [facility] Address: [address] [place] [address] Performed By: #### B [place], 28313-1 #### [facility] CLIA [id number] [address] [place] [address] [place] MCH (RBC) [Entitic mass] 25.2 pg Low 26.0-34.0 [facility] Comment on above: Order Comment: Speci men Type: BLOOD SPECIMEN Ordering Facility: [facility] Address: [address] [place] [address] Performed By: #### B HB, #### [facility] CLIA [id number] [address] [place] [address] [place] MCHC (RBC) [Mass/Vol] 31.6 g/dL Normal 30.5-36.0 [facility] Comment on above: Order Comment: Speci men Type: BLOOD SPECIMEN Ordering Facility: [facility] Address: [address] [place] [address] Performed By: #### B HB, #### [facility] CLIA [id number] [address] [place] [address] [place] MCV (RBC) [Entitic vol] 79.8 fL Low 80.0-100.0 [facility] Comment on above: Order Comment: Speci men Type: BLOOD SPECIMEN Ordering Facility: [facility] Address: [address] [place] [address] Performed By: #### B HB, #### [facility] CLIA [id number] [address] [place] [address] [place] Nucleated RBC (Bld) [#/Vol] 10*3/uL Normal <0.01 [facility] Comment on above: Order Comment: Speci men Type: BLOOD SPECIMEN Ordering Facility: [facility] Address: [address] [place] [address] Performed By: #### B HB, #### [facility] CLIA [id number] [address] [place] [address] [place] Platelet mean volume (Bld) [Entitic vol] 10.6 fL Normal 9.0-12.7 [facility] Comment on above: Order Comment: Speci men Type: BLOOD SPECIMEN Ordering Facility: [facility] Address: [address] [place] [address] Performed By: #### B HB, #### [facility] CLIA [id number] [address] [place] [address] [place] Platelets (Bld) [#/Vol] 251 10*3/uL Normal 150-400 [facility] Comment on above: Order Comment: Speci men Type: BLOOD SPECIMEN Ordering Facility: [facility] Address: [address] [place] [address] Performed By: #### B [place], 56932-6 #### [facility] CLIA [id number] [address] [place] [address] [place] RBC (Bld) [#/Vol] 3.57 10*6/uL Low 3.90-5.20 [facility] Comment on above: Order Comment: Speci men Type: BLOOD SPECIMEN Ordering Facility: [facility] Address: [address] [place] [address] Performed By: #### [place], 27143-8 #### [facility] CLIA [id number] [address] [place] [address] [place] WBC (Bld) [#/Vol] 7.47 10*3/uL Normal 3.70-11.00 [facility] Comment on above: Order Comment: Speci men Type: BLOOD SPECIMEN Ordering Facility: [facility] Address: [address] [place] [address] Performed By: #### B HB, 47217-5 #### [facility] CLIA [id number] [address] [place] [address] OF [facility] CNDSon 06-23-2023 CNDS HNO ID: [id number] Author: Annie Martinez APRN.CNP Service: Urology Author Type: Nurse Practitioner Type: [...] this patient's care. Taurus Ballard MD [facility] [place] [phone] or ([phone]) [facility] C O N F I D E N T I A L I N F O R M A T I O N ------ STANDARD [facility] DOCUMENT DISCHARGE SUMMARY Patient Name: Aislinn Wheeler [...] Your Medications These medications were sent to [facility] [address] [place] [address] Hours: Monday-Monday: 7am-7pm, Sat: 9am-1pm acetaminophen 325 mg tablet docusate sodium 100 mg capsule Future Appointments: No future appointments. Electronically SIGNED by Licensed Independent Practitioner: Annie Martinez APRN.[facility] 06-23-2023 [facility] Telephone ([facility]) AISLINN WHEELER ([id number]) 1960 F Date Time Provider Department 06/23/23 HEIDY GARCIA During your visit today, we recorded the following information about you: Heidy Garcia RN 06/23/2023 9:05 AM Signed Patient had left robotic partial nephrectomy by Dr. Ballard on 06/22/2023 Will call for surgical follow up once discharged Heidy Garcia RN 06/26/2023 10:45 AM Signed Patient phone number non functioning. Active in [employer], will send message inquiring on how she's feeling post-operatively. Vonnie Wilder RN 06/27/2023 10:15 AM Signed Spoke with grand daughter, Lola, as this office is unable to reach patient for post op call. Lola reports, that patient's phone is turned off, and she does not know how to use [employer]. Lola reports that patient went to [place] ED due to excruciating pain -was given [...] Encounter Status:Closed by HEIDY GARCIA on 06/23/23 [facility] NURSING PROGon 06-23-2023 NURSING PROG HNO ID: [id number] Author: Sweta Cordova RN Service: ? Author [...] Annie Martinez, awaiting PRN order of hydralazine. [facility] ANES POSTPROC EVALon 023 ANES POSTPROC EVAL HNO ID: [id number] Author: Rikki Jhaveri MD Service: Anesthesiology Author Type: Anesthesiologist Type: Anesthesia Postprocedure Evaluation Filed: 06/22/2023 2:18 PM Note Text: POST ANESTHESIA EVALUATION NOTE : 1960 Procedure Summary Date: 06/22/23 Room / Location: [place] [address]A / OR Anesthesia Start: 1107 Anesthesia Stop: [...] June 22, 2023 TIME: 2:18 PM CSN: [id number] [facility] ANES PRE-OPon 06-22-2023 ANES PRE-OP HNO ID: [id number] Author: Rikki Jhaveri MD Service: Anesthesiology Author [...] June 22, 2023 TIME: 9:54 AM CSN: [id number] Normal [facility] Basic metabolic 2000 panelon 06-22-2023 Anion gap [Moles/Vol] 7 mmol/L Low -18 [facility] Comment on above: Order Comment: Speci men Type: BLOOD SPECIMEN Ordering Facility: [facility] Address: [address] [place] [address] Performed By: #### 2 4321-2 #### [facility] CLIA [id number] [place] [address] [place] Calcium [Mass/Vol] 7.5 mg/dL Low 8.5-10.2 [facility] Comment on above: Order Comment: Speci men Type: BLOOD SPECIMEN Ordering Facility: [facility] Address: [address] [place] [address] Performed By: #### 2 4321-2 #### [facility] CLIA [id number] [address] [place] [address] [place] Chloride [Moles/Vol] 108 mmol/L High 97-105 [facility] Comment on above: Order Comment: Speci men Type: BLOOD SPECIMEN Ordering Facility: [facility] Address: [address] [place] [address] Performed By: #### 2 4321-2 #### [facility] CLIA [id number] [address] [place] [address] [place] CO2 [Moles/Vol] 19 mmol/L Low 22-30 [facility] Comment on above: Order Comment: Speci men Type: BLOOD SPECIMEN Ordering Facility: [facility] Address: [address] [place] [address] Performed By: #### 2 4321-2 #### [facility] CLIA [id number] [address] [place] [address] [place] Creatinine [Mass/Vol] 1.57 mg/dL High 0.58-0.96 [facility] Comment on above: Order Comment: Speci men Type: BLOOD SPECIMEN Ordering Facility: [facility] Address: [address] [place] [address] Performed By: #### 2 4321-2 #### [facility] CLIA [id number] [address] [place] [address] [place] Creatinine and Glomerular filtration rate.predicted panel (S/P/Bld) 36 mL/min/1.73m??? Low >=60 [facility] Comment on above: Order Comment: Speci men Type: BLOOD SPECIMEN Ordering Facility: [facility] Address: [address] [place] [address] Result Comment: Donna mated Glomerular Filtration Rate [...] GFR. Performed By: #### 2 4321-2 #### [facility] CLIA [id number] [place] [address] [place] Glucose [Mass/Vol] 275 mg/dL High 74-99 [facility] Comment on above: Order Comment: [place] Type: BLOOD SPECIMEN Ordering Facility: [facility] Address: [place] [address] Result Comment: The [place] Diabetes Association (ADA) provides guidance for cutoff [...] Standards of Medical Care in Diabetes 2016, [place] [employer]. Diabetes Care. 2016.39(Suppl 1). Performed By: #### 2 4321-2 #### [facility] CLIA [id number] [address] [place] [address] [place] Potassium [Moles/Vol] 5.3 mmol/L High 3.7-5.1 [facility] Comment on above: Order Comment: [place] Type: BLOOD SPECIMEN Ordering Facility: [facility] Address: [place] [address] Performed By: #### 2 4321-2 #### [facility] CLIA [id number] [place] [address] [place] Sodium [Moles/Vol] 134 mmol/L Low 136-144 [facility] Comment on above: Order Comment: Speci men Type: BLOOD SPECIMEN Ordering Facility: [facility] Address: [address] [place] [address] Performed By: #### 2 4321-2 #### [facility] CLIA [id number] [address] [place] [address] [place] Urea nitrogen [Mass/Vol] 26 mg/dL High 7-21 [facility] Comment on above: Order Comment: Speci men Type: BLOOD SPECIMEN Ordering Facility: [facility] Address: [address] [place] [address] Performed By: #### 2 4321-2 #### [facility] CLIA [id number] [address] [place] [address] [place] CBC panel Auto (Bld)on 06-22 Erythrocyte distribution width (RBC) [Ratio] 14.3 % Normal 11.5-15.0 [facility] Comment on above: Order Comment: Speci men Type: BLOOD SPECIMEN Ordering Facility: [facility] Address: [address] [place] [address] Performed By: #### 5 8410-2 #### [facility] CLIA [id number] [address] [place] [address] [place] Hematocrit (Bld) [Volume fraction] 27.8 % Low 36.0-46.0 [facility] Comment on above: Order Comment: Speci men Type: BLOOD SPECIMEN Ordering Facility: [facility] Address: [address] [place] [address] Performed By: #### 5 8410-2 #### [facility] CLIA [id number] [address] [place] [address] [place] Hemoglobin (Bld) [Mass/Vol] 8.9 g/dL Low 11.5-15.5 [facility] Comment on above: Order Comment: Speci men Type: BLOOD SPECIMEN Ordering Facility: [facility] Address: [address] [place] [address] Performed By: #### 5 8410-2 #### [facility] CLIA [id number] [address] [place] [address] [place] MCH (RBC) [Entitic mass] 25.3 pg Low 26.0-34.0 [facility] Comment on above: Order Comment: Speci men Type: BLOOD SPECIMEN Ordering Facility: [facility] Address: [address] [place] [address] Performed By: #### 5 8410-2 #### [facility] CLIA [id number] [address] [place] [address] [place] MCHC (RBC) [Mass/Vol] 32.0 g/dL Normal 30.5-36.0 [facility] Comment on above: Order Comment: Speci men Type: BLOOD SPECIMEN Ordering Facility: [facility] Address: [address] [place] [address] Performed By: #### 5 8410-2 #### [facility] CLIA [id number] [address] [place] [address] [place] MCV (RBC) [Entitic vol] 79.0 fL Low 80.0-100.0 [facility] Comment on above: Order Comment: Speci men Type: BLOOD SPECIMEN Ordering Facility: [facility] Address: [address] [place] [address] Performed By: #### 5 8410-2 #### [facility] CLIA [id number] [address] [place] [address] [place] Nucleated RBC (Bld) [#/Vol] 10*3/uL Normal <0.01 [facility] Comment on above: Order Comment: Speci men Type: BLOOD SPECIMEN Ordering Facility: [facility] Address: [address] [place] [address] Performed By: #### 5 8410-2 #### [facility] CLIA [id number] [address] [place] [address] [place] Platelet mean volume (Bld) [Entitic vol] 10.8 fL Normal 9.0-12.7 [facility] Comment on above: Order Comment: Speci men Type: BLOOD SPECIMEN Ordering Facility: [facility] Address: [address] [place] [address] Performed By: #### 5 8410-2 #### [facility] CLIA [id number] [address] [place] [address] [place] Platelets (Bld) [#/Vol] 230 10*3/uL Normal 150-400 [facility] Comment on above: Order Comment: Speci men Type: BLOOD SPECIMEN Ordering Facility: [facility] Address: [address] [place] [address] Performed By: #### 5 8410-2 #### [facility] CLIA [id number] [address] [place] [address] [place] RBC (Bld) [#/Vol] 3.52 10*6/uL Low 3.90-5.20 [facility] Comment on above: Order Comment: Speci men Type: BLOOD SPECIMEN Ordering Facility: [facility] Address: [address] [place] [address] Performed By: #### 5 8410-2 #### [facility] CLIA [id number] [address] [place] [address] [place] WBC (Bld) [#/Vol] 6.04 10*3/uL Normal 3.70-11.00 [facility] Comment on above: Order Comment: Speci men Type: BLOOD SPECIMEN Ordering Facility: [facility] Address: [address] [place] [address] Performed By: #### 5 8410-2 #### [facility] CLIA [id number] [address] [place], [place] [address] [facility] NURSING PROGon 06-22-2023 NURSING PROG HNO ID: [id number] Author: Afia Lanier RN Service: Nursing Author Type: Registered Nurse Type: Nursing Progress Note Filed: 06/22/2023 5:56 PM Note Text: Transfer Note: PATIENT NAME: Aislinn Wheeler Patient Location: [place] [address]/LR5L-[id number] Room: [place] [address] Patient transferred into room/unit pk308 in stable condition. Actions taken: No futher actions taken at this time. Will continue to monitor and check with patient. [facility] NURSING PROG HNO ID: [id number] Author: Linda Nicholson RN Service: Nursing Author Type: Registered Nurse Type: Nursing Progress Note Filed: 06/22/2023 12:20 PM Note Text: pre-incision juan area noted to have redness and inflamed, prior to prepping and putting chaves in. [facility] NURSING PROG HNO ID: [id number] Author: Elva Joy RN Service: Nursing Author [...] (RECOMMENDATION): None Electronically Signed By: Elva Joy [facility] OPERATIVE NOon 06-22-2023 OPERATIVE NO HNO ID: [id number] Author: Taurus Ballard MD Service: Urology Author Type: Physician Type: Operative Report Filed: 06/22/2023 1:48 PM Note Text: OPERATIVE/PROCEDURE REPORT LOG ID: [id number] Surgery/Procedure Date: 06/22/2023 Incision/Procedure Start Time: 11:49 AM Incision Close/Procedure End Time: 1:55 PM Surgeon(s)/Proceduralis t(s) and Operations Research Scientist(s): Surgeon(s) and Role: * Taurus Ballard MD - Primary * Jeet De La Fuente MD - Resident - Assisting Physician Operations Research Scientist: Camden Rios PA-C; Alicia Harmon PA-C Procedure(s): [...] superior to the umbilicus a 12 mm administrative personal assistant port was placed. At this point [...] a specimen bag out of the supraumbilical administrative personal assistant port. This port was closed with [...] None Drains: 10 flat JUAN drain, 16 [place] Chaves catheter Complications: None Accidental Punctures/Lacerations: None I/primary surgeon/proceduralist performed the procedure with assistance. SIGNATURE: Taurus Ballard MD PATIENT NAME: Aislinn Wheeler DATE: June 22, 2023 TIME: 1:42 PM PAGER/CONTACT #: [facility] SURGICAL PATHOLOGYon 023 CASE REPORT [facility] Comment on above: Order Comment: Speci men Type: BLOOD SPECIMEN Ordering Facility: [facility] Address: [address] [place] [address] Result Comment: Surg ica Pathology Report Case: [id number] Authorizing Provider: Taurus Ballard MD Collected: 06/22/2023 01:38 PM Ordering Location: [facility] Received: 06/22/2023 03:16 PM Operating Room Pathologist: Barron Cheema MD Specimen: KIDNEY PARTIAL NEPHRECTOMY LEFT, left renal neoplasm Performed By: #### Kimberlyn FISCHER, 52986-5 #### [facility] CLIA [id number] OF [facility] CLINICAL HISTORY Normal [facility] Comment on above: Order Comment: Speci reinier Type: BLOOD SPECIMEN Ordering Facility: [facility] Address: [address] [place] [address] Result Comment: 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 - 7.2 cm gross greatest dimension of tissue specimen (defer to clinical/imaging for overall lesion size). Performed By: #### [place], [address]-7 #### [facility] CLIA [id number] [address] [place] [address] STATES OF [facility] FINAL PERFORMING LAB Normal [facility] Comment on above: Order Comment: Speci men Type: BLOOD SPECIMEN Ordering Facility: [facility] Address: [address] [place] [address] Result Comment: Diag nostic interpretation performed at [facility], [address] [place] [address] CLIA# [id number] Wholesale Account Manager: Oswald Munguia M.D. Performed By: #### [place], [address]-6 #### [facility] CLIA [id number] [address] [place] [address] [place] OF [facility] GROSS DESCRIPTION Normal [facility] Comment on above: Order Comment: Speci men Type: BLOOD SPECIMEN Ordering Facility: [facility] Address: [place] [address] Result Comment: Emre MCGRATH PARTIAL NEPHRECTOMY LEFT Received in formalin designated left renal neoplasm is a segment of chilel-purple membranous tissue which weighs 39 g and measures 7.2 x 5.5 x 3.5 cm. There is cautery present at the margin which is inked orange. The surfaces are smooth with no masses or papillations grossly appreciated. Sectioning does not reveal any masses. Clinical Engineering Manager sections are submitted in 5 cassettes. BF June 23, 2023 9:00 AM Gross examination performed at [facility], [address] [place] [address] CLIA # [id number] Performed By: #### Kimberlyn , 97227-4 #### [facility] CLIA [id number] [address] [place] [address] CNPNon 06-15-2023 CNPN Telephone ([facility] AISLINN WHEELER ([id number]) 1960 F Date Time Provider Department 06/15/23 OVNNIE WILDER [facility] During your visit today, we recorded [...] Encounter Status:Closed by VONNIE WILDER on 06/15/23 [facility] [place] 06-12-2023 CNPN Telephone ([facility]) AISLINN WHEELER ([id number]) 1960 F Date Time Provider Department 06/12/23 LILIANA VELASCO [facility] During your visit today, we recorded the following information about you: Liliana Velasco RN 06/12/2023 8:56 AM Signed Received call from RN at Dr. Sara Augustine ([phone]) office (endocrinology) regarding clearance for upcoming surgery on 06/22/23 Pt saw physician on 06/08/23 and medications were changed. Pt will follow up with them on 06/20/[address] Augustine does not do surgical clearance - she only manages the patient's diabetes. He will fax over office notes to be reviewed. Derik Fernandez 06/12/2023 9:36 AM Signed Office Notes on 06/08/23 with endocrinologySara CNP received and scanned into imbookin ([place]) to view. Allergies As of Date: 06/12/2023 [...] Encounter Status:Closed by LILIANA VELASCO on 06/12/23 [facility] C Urineon 06-10-2023 Bacteria identified Cx [...] interp, R*=Predicted resistant interp ___ EC Antibiotic LCOO Dilutn LOCO Interp Amikacin <=16 S Ampicillin [...] Locations R1: This test was performed at: [facility], [address] [place] [address], [phone] , , [facility] Comment on above: Performed By: #### 2 [id number] #### [facility] [address] [place] [address] 06-09-2023 [facility]phone [facility] AISLINN WHEELER ([id number]) 1960 F Date Time Provider Department 06/09/23 TAURUS BALLARDRaquel During your visit today, we recorded the following information about you: Derik Fernandez 06/09/2023 3:31 PM Signed Lvm on patient's phone inquiring if she kept her historical interpreter appointment on 06/08 for clearance for her surgery on 06/22 Left message with office of Sara Augustine ([phone]) where patient's appointment was scheduled asking for [...] Encounter Status:Closed by DERIK FERNANDEZ on 06/09/23 [facility] Glucose - FINGER STICKon Glucose [Mass/Vol] 436 mg/dL [facility] Other [place] 06-07-2023 NIECY Telephone (MERY) AISLINN WHEELER ([id number]) 1960 F Date Time Provider Department 06/07/23 AARON AGUILAR During your visit today, we recorded the following information about you: Aaron Aguilar APRN.KIARA 06/07/2023 7:22 AM Signed Patient scheduled 06/22 [...] labs to PCP Thank you Aaron Aguilar APRN.[facility] Aaron Aguilar APRN.CNP 06/07/2023 8:26 AM [...] June 12, 2023 12:49 PM Aaron Aguilar APRN.CNP 06/13/2023 11:[address] Chao, Patient saw endocrinology at [facility] 06/08 and had medications adjusted. I called patient to see how BG levels have been but unable to reach. She has a follow up with endo 06/20 Can she proceed with surgery since she saw endo? Thank you Aaron Aguilar APRN.CNP PACC Aaron Aguilar APRN.CNP 06/15/2023 1:26 PM Signed Repeat labs completed [...] to assure of instructions above Thank you BRITTNY Horowitz Ivi A, RN 06/19/2023 9:07 AM Addendum I spoke with patient and instructions given to take at least 12 units of her Lantus the night prior to her scheduled surgery on 06/22/[address] Ballard. Patient stated she is not feeling well and has the following symptoms: whole body aches, chills, nausea, and fatigue. She is on her way to [facility] ED. Because patient is not feeling well, [...] with hyperglycemia (HCC) [E11.65] Order(s):CONSULT TO ENDOCRINOLOGY [0982] Order #: [id number]: 1 FUTURE Prescriptions as of 06/19/2023 - [...] hours as (more content not included)... Normal [facility] CBC W Auto Differential pane l (Bld)on 06-06-2023 Basophils (Bld) [#/Vol] 0.04 10*3/uL Normal <0.11 [facility] Comment on above: Order Comment: Speci men Type: BLOOD SPECIMENOrdering Facility: [facility] Address: [address] [place] [address] Performed By: #### 5 7021-8 ####[facility] LABIA [id number] [place] [address] [place] Basophils/100 WBC (Bld) 0.8 % Normal [facility] Comment on above: Order Comment: Speci men Type: BLOOD SPECIMENOrdering Facility: [facility] Address: [address] [place] [address] Performed By: #### 5 7021-8 ####[facility] LABCLIA [id number] [place] [address] [place] Differential cell count method Nom (Bld) Auto Normal [facility] Comment on above: Order Comment: Speci men Type: BLOOD SPECIMENOrdering Facility: [facility] Address: [address] [place] [address] Performed By: #### 5 7021-8 ####[facility] LABCLIA [id number] [place] [address] [place] Eosinophils (Bld) [#/Vol] 0.15 10*3/uL Normal <0.46 [facility] Comment on above: Order Comment: Speci men Type: BLOOD SPECIMENOrdering Facility: [facility] Address: [address] [place] [address] Performed By: #### 5 7021-8 ####[facility] LABCLIA [id number] [place] [address] [place] Eosinophils/100 WBC (Bld) 3.1 % Normal [facility] Comment on above: Order Comment: Speci men Type: BLOOD SPECIMENOrdering Facility: [facility] Address: [address] [place] [address] Performed By: #### 5 7021-8 ####[facility] LABCLIA [id number] [place] [address] [place] Erythrocyte distribution width (RBC) [Ratio] 14.7 % Normal 11.5-15.0 [facility] Comment on above: Order Comment: Speci men Type: BLOOD SPECIMENOrdering Facility: [facility] Address: [address] [place] [address] Performed By: #### 5 7021-8 ####[facility] LABCLIA [id number] [place] [address] [place] Hematocrit (Bld) [Volume fraction] 37.2 % Normal 36.0-46.0 [facility] Comment on above: Order Comment: Speci men Type: BLOOD SPECIMENOrdering Facility: [facility] Address: [address] [place] [address] Performed By: #### 5 7021-8 ####[facility] LABCLIA [id number] [place] [address] [place] Hemoglobin (Bld) [Mass/Vol] 11.9 g/dL Normal 11.5-15.5 [facility] Comment on above: Order Comment: Speci men Type: BLOOD SPECIMENOrdering Facility: [facility] Address: [address] [place] [address] Performed By: #### 5 7021-8 ####[facility] LABCLIA [id number] [place] [address] [place] Immature granulocytes (Bld) [#/Vol] 10*3/uL Normal <0.10 [facility] Comment on above: Order Comment: Speci men Type: BLOOD SPECIMENOrdering Facility: [facility] Address: [address] [place] [address] Performed By: #### 5 7021-8 ####[facility] LABCLIA [id number] [place] [address] [place] Immature granulocytes/100 WBC (Bld) 0.4 % Normal [facility] Comment on above: Order Comment: Speci men Type: BLOOD SPECIMENOrdering Facility: [facility] Address: [address] [place] [address] Performed By: #### 5 7021-8 ####[facility] LABCLIA [id number] [place] [address] [place] Lymphocytes (Bld) [#/Vol] 2.18 10*3/uL Normal 1.00-4.00 [facility] Comment on above: Order Comment: Speci men Type: BLOOD SPECIMENOrdering Facility: [facility] Address: [address] [place] [address] Performed By: #### 5 7021-8 ####[facility] LABCLIA [id number] [place] [address] [place] Lymphocytes/100 WBC (Bld) 44.7 % Normal [facility] Comment on above: Order Comment: Speci men Type: BLOOD SPECIMENOrdering Facility: [facility] Address: [address] [place] [address] Performed By: #### 5 7021-8 ####[facility] LABCLIA [id number] [place] [address] [place] MCH (RBC) [Entitic mass] 25.4 pg Low 26.0-34.0 [facility] Comment on above: Order Comment: Speci men Type: BLOOD SPECIMENOrdering Facility: [facility] Address: [address] [place] [address] Performed By: #### 5 7021-8 ####[facility] LABIA [id number] [place] [address] [place] MCHC (RBC) [Mass/Vol] 32.0 g/dL Normal 30.5-36.0 [facility] Comment on above: Order Comment: Speci men Type: BLOOD SPECIMENOrdering Facility: [facility] Address: [address] [place] [address] Performed By: #### 5 7021-8 ####[facility] LABIA [id number] [place] [address] [place] MCV (RBC) [Entitic vol] 79.5 fL Low 80.0-100.0 [facility] Comment on above: Order Comment: Speci men Type: BLOOD SPECIMENOrdering Facility: [facility] Address: [address] [place] [address] Performed By: #### 5 7021-8 ####[facility] LABIA [id number] [place] [address] [place] Monocytes (Bld) [#/Vol] 0.42 10*3/uL Normal <0.87 [facility] Comment on above: Order Comment: Speci men Type: BLOOD SPECIMENOrdering Facility: [facility] Address: [address] [place] [address] Performed By: #### 5 7021-8 ####[facility] LABCLIA [id number] [place] [address] [place] Monocytes/100 WBC (Bld) 8.6 % Normal [facility] Comment on above: Order Comment: Speci men Type: BLOOD SPECIMENOrdering Facility: [facility] Address: [address] [place] [address] Performed By: #### 5 7021-8 ####[facility] LABCLIA [id number] [place] [address] [place] Neutrophils (Bld) [#/Vol] 2.07 10*3/uL Normal 1.45-7.50 [facility] Comment on above: Order Comment: Speci men Type: BLOOD SPECIMENOrdering Facility: [facility] Address: [address] [place] [address] Performed By: #### 5 7021-8 ####[facility] LABCLIA [id number] [place] [address] [place] Neutrophils/100 WBC (Bld) 42.4 % Normal [facility] Comment on above: Order Comment: Speci men Type: BLOOD SPECIMENOrdering Facility: [facility] Address: [address] [place] [address] Performed By: #### 5 7021-8 ####[facility] LABCLIA [id number] [place] [address] [place] Nucleated RBC (Bld) [#/Vol] 10*3/uL Normal <0.01 [facility] Comment on above: Order Comment: Speci men Type: BLOOD SPECIMENOrdering Facility: [facility] Address: [address] [place] [address] Performed By: #### 5 7021-8 ####[facility] LABCLIA [id number] [place] [address] [place] Nucleated RBC/100 WBC (Bld) [Ratio] 0.0 /100 WBC Normal [facility] Comment on above: Order Comment: Speci men Type: BLOOD SPECIMENOrdering Facility: [facility] Address: [address] [place] [address] Performed By: #### 5 7021-8 ####[facility] LABCLIA [id number] [place] [address] [place] Platelet mean volume (Bld) [Entitic vol] 11.5 fL Normal 9.0-12.7 [facility] Comment on above: Order Comment: Speci men Type: BLOOD SPECIMENOrdering Facility: [facility] Address: [address] [place] [address] Performed By: #### 5 7021-8 ####[facility] LABCLIA [id number] [place] [address] [place] Platelets (Bld) [#/Vol] 230 10*3/uL Normal 150-400 [facility] Comment on above: Order Comment: Speci men Type: BLOOD SPECIMENOrdering Facility: [facility] Address: [address] [place] [address] Performed By: #### 5 7021-8 ####[facility] LABCLIA [id number] [place] [address] [place] RBC (Bld) [#/Vol] 4.68 10*6/uL Normal 3.90-5.20 [facility] Comment on above: Order Comment: Speci men Type: BLOOD SPECIMENOrdering Facility: [facility] Address: [address] [place] [address] Performed By: #### 5 7021-8 ####[facility] LABCLIA [id number] [place] [address] [place] WBC (Bld) [#/Vol] 4.88 10*3/uL Normal 3.70-11.00 [facility] Comment on above: Order Comment: Speci men Type: BLOOD SPECIMENOrdering Facility: [facility] Address: [address] [place] [address] Performed By: #### 5 7021-8 ####[facility] LABCLIA [id number] [address] [address] [place] Comprehensive metabolic 2000 panelon 06-06-2023 Albumin [Mass/Vol] 3.8 g/dL Low 3.9-4.9 [facility] Comment on above: Order Comment: Speci men Type: BLOOD SPECIMENOrdering Facility: [facility] Address: [address] [place] [address] Performed By: #### 2 4323-8 ####[facility] LABCLIA [id number] [place] [address] [place] ALP [Catalytic activity/Vol] 115 U/L Normal 34-123 [facility] Comment on above: Order Comment: Speci men Type: BLOOD SPECIMENOrdering Facility: [facility] Address: [address] [place] [address] Performed By: #### 2 4323-8 ####[facility] LABCLIA [id number] [place] [address] [place] ALT [Catalytic activity/Vol] 11 U/L Normal 7-38 [facility] Comment on above: Order Comment: Speci men Type: BLOOD SPECIMENOrdering Facility: [facility] Address: [address] [place] [address] Performed By: #### 2 4323-8 ####[facility] LABCLIA [id number] [place] [address] [place] Anion gap [Moles/Vol] 11 mmol/L Normal 9-18 [facility] Comment on above: Order Comment: Speci men Type: BLOOD SPECIMENOrdering Facility: [facility] Address: [address] [place] [address] Performed By: #### 2 4323-8 ####[facility] LABCLIA [id number] [place] [id number] [place] AST [Catalytic activity/Vol] 12 U/L Low 13-35 [facility] Comment on above: Order Comment: Speci men Type: BLOOD SPECIMENOrdering Facility: [facility] Address: [address] [place] [address] Performed By: #### 2 4323-8 ####[facility] LABCLIA [id number] [place] [id number] [place] Bilirubin [Mass/Vol] 0.3 mg/dL Normal 0.2-1.3 [facility] Comment on above: Order Comment: Speci men Type: BLOOD SPECIMENOrdering Facility: [facility] Address: [address] [place] [address] Performed By: #### 2 4323-8 ####[facility] LABCLIA [id number] [place] [address] [place] Calcium [Mass/Vol] 8.9 mg/dL Normal 8.5-10.2 [facility] Comment on above: Order Comment: Speci men Type: BLOOD SPECIMENOrdering Facility: [facility] Address: [address] [place] [address] Performed By: #### 2 4323-8 ####[facility] LABCLIA [id number] [place] [address] [place] Chloride [Moles/Vol] 95 mmol/L Low 97-105 [facility] Comment on above: Order Comment: Speci men Type: BLOOD SPECIMENOrdering Facility: [facility] Address: [address] [place] [address] Performed By: #### 2 4323-8 ####[facility] LABCLIA [id number] [place] [address] [place] CO2 [Moles/Vol] 24 mmol/L Normal 22-30 [facility] Comment on above: Order Comment: Speci men Type: BLOOD SPECIMENOrdering Facility: [facility] Address: [address] [place] [address] Performed By: #### 2 4323-8 ####[facility] LABCLIA [id number] [place] [address] [place] Creatinine [Mass/Vol] 1.81 mg/dL High 0.58-0.96 [facility] Comment on above: Order Comment: Speci men Type: BLOOD SPECIMENOrdering Facility: [facility] Address: [address] [place] [address] Performed By: #### 2 4323-8 ####[facility] LABCLIA [id number] [place] [address] [place] Creatinine and Glomerular filtration rate.predicted panel (S/P/Bld) 31 mL/min/1.73m??? Low >=60 [facility] Comment on above: Order Comment: [place] Type: BLOOD SPECIMENOrdering Facility: [facility] Address: [address] [place] [address] Result Comment: Donna mated Glomerular Filtration Rate [...] actual GFR. Performed By: #### 2 4323-8 ####[facility] LABCLIA [id number] [place] [address] [place] Glucose [Mass/Vol] 510 mg/dL High 74-99 [facility] Comment on above: Order Comment: [place] Type: BLOOD SPECIMENOrdering Facility: [facility] Address: [address] [place] [address] Result Comment: The [place] Diabetes Association (ADA) provides guidance for cutoff [...] Standards of Medical Care in Diabetes 2016, [place] [employer] Association. Diabetes Care. 2016.39(Suppl 1). Performed By: #### 2 4323-8 ####[facility] LABCLIA [id number] [place] [address] [place] Potassium [Moles/Vol] 5.9 mmol/L High 3.7-5.1 [facility] Comment on above: Order Comment: Speci men Type: BLOOD SPECIMENOrdering Facility: [facility] Address: [address] [place] [address] Performed By: #### 2 4323-8 ####[facility] LABIA [id number] [place] [address] [place] Protein [Mass/Vol] 8.2 g/dL High 6.3-8.0 [facility] Comment on above: Order Comment: Speci men Type: BLOOD SPECIMENOrdering Facility: [facility] Address: [address] [place] [address] Performed By: #### 2 4323-8 ####[facility] LABIA [id number] [place] [address] [place] Sodium [Moles/Vol] 130 mmol/L Low 136-144 [facility] Comment on above: Order Comment: Speci men Type: BLOOD SPECIMENOrdering Facility: [facility] Address: [address] [place] [address] Performed By: #### 2 4323-8 ####[facility] LABIA [id number] [place] [address] [place] Urea nitrogen [Mass/Vol] 36 mg/dL High 7-21 [facility] Comment on above: Order Comment: Speci men Type: BLOOD SPECIMENOrdering Facility: [facility] Address: [address] [place] [address] Performed By: #### 2 4323-8 ####[facility] LABIA [id number] [place] [address] [place] ECG COMPLETEon 06-06-2023 ECG COMPLETE Ventricular Rate : 7 6 BPM Atrial Rate : 76 BPM P-R Interval : 162 ms QRS Duration : 74 ms Q-T Interval : 402 ms QTC Calculation(Bazett) : 452 ms Calculated P Gasquet : 48 degrees Calculated R Gasquet : 43 degrees Calculated T Gasquet : 53 degrees NORMAL SINUS RHYTHM POSSIBLE LEFT ATRIAL ENLARGEMENT BORDERLINE ECG Confirmed by AMANDA DAVID MD ([id number]) on 06/10/2023 4:44:16 PM NAME : AISLINN WHEELER PID : [id number] : 1960 Gender : Female Race : ORD : [id number] Procedure Date : Jun 06 2023 12:04:48 [...] TAURUS BALLARD Acquired by : Fabio hull [facility] HISTORY PHYSICALon HISTORY PHYSICAL HNO ID: [id number] Author: Aaron Aguilar APRN.STANDPIPE TENDER Service: ? Author Type: Nurse Practitioner Type: [...] 2 drinks per day. 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 Objective PHYSICAL EXAM: VITALS: BP 174/80 Pulse 76 Temp (Src) 97 (Temporal) Resp 16 Ht 5' 0 (1.52m) Wt 131 lb (59.4kg) SpO2 99% BMI 25.58 kg/(m2). General: Alert and oriented, No acute distress Skin: Normal color, no rash, no lesions. HEENT: EOM, pupils equal, (more content not included)... Normal [facility] HbA1c (Bld)on 06-06-2023 Average glucose Estimated from glycated hemoglobin (Bld) [Mass/Vol] 335 mg/dL Normal [facility] Comment on above: Order Comment: Speci [facility] Type: BLOOD SPECIMENOrdering Facility: [facility] Address: [address] [place] [address] Result Comment: eAG: (Estimated average glucose) is a calculated value from HgbA1c and is data entry representative of the average blood glucose level in the last 2-3 month period. Performed By: #### 5 5454-3 ####[facility] LABCLIA [id number] [place] [address] [place] HbA1c (Bld) [Mass fraction] 13.3 % High 4.3-5.6 [facility] Comment on above: Order Comment: Speci men Type: BLOOD SPECIMENOrdering Facility: [facility] Address: [address] [place] [address] Result Comment: Amer [place] Diabetes Association guidelines indicate that patients with HgbA1c in the range 5.7-6.4% are at increased risk for development of diabetes, and intervention by lifestyle modification may be beneficial. HgbA1c greater or equal to 6.5% is considered diagnostic of diabetes. Performed By: #### 5 5454-3 ####[facility] LABCLIA [id number] [place] [address] [place] PT panel Coag (PPP)on 2022 INR Coag (PPP) [Relative time] 1.0 {INR} Normal 0.9-1.3 [facility] Comment on above: Order Comment: [place] Type: BLOOD SPECIMENOrdering Facility: [facility] Address: [address] [place] [address] Result Comment: Laxmi min K Antagonist (VKA) Therapeutic Range: INR 2 to 3 (Target INR of 2.5) Note: For patients treated with VKA drugs, such as warfarin, the [place] [employer] 2012 Guideline recommends [...] Chest 2012, 141:7S-47S Eligio RA, et al. [facility] 2017, 70: 252-289 Performed By: #### 1 4979-9, 67678-5 ####[facility] LABCLIA [id number] [place] [address] [place] PT Coag (PPP) [Time] 10.1 s Normal 9.7-13.0 [facility] Comment on above: Order Comment: Speci men Type: BLOOD SPECIMENOrdering Facility: [facility] Address: [address] [place] [address] Performed By: #### 1 4979-9, 75454-0 ####[facility] LABCLIA [id number] [address] [place] TYPE AND SCREEN,30 DAYon ABO B Normal [facility] Comment on above: Order Comment: Speci men Type: BLOOD SPECIMENOrdering Facility: [facility] Address: [address] [place] [address] Performed By: #### T SCR30 ####[facility] BLOOD BANKCLIA [id number] [address] [place] HISTORICAL AB SCR STATUS Negative Normal [facility] Comment on above: Order Comment: Speci men Type: BLOOD SPECIMENOrdering Facility: [facility] Address: [address] [place] [address] Performed By: #### T SCR30 ####[facility] BLOOD BANKCLIA [id number] [place] [address] [place] Rh Nom (Bld) Positive Normal [facility] Comment on above: Order Comment: Speci men Type: BLOOD SPECIMENOrdering Facility: [facility] Address: [address] [place] [address] Performed By: #### T SCR30 ####[facility] BLOOD BANKIA [id number] [place] [address] [place] aPTT PPPon 06-06-2023 aPTT Coag (PPP) [Time] 28.7 s Normal 23.0-32.4 [facility] Comment on above: Order Comment: Speci men Type: BLOOD SPECIMENOrdering Facility: [facility] Address: [address] [place] [address] Result Comment: Froz en Plasma Aliquot Performed By: #### 1 4979-9, 63854-8 ####[facility] LABCLIA [id number] [place] [address] [place] Consent for Procedure/Surger yon 05-22-2023 Consent for Procedure/Surgery [id number]#1.0 0CD:127 Normal [facility] Consent for Treatmenton Consent for Treatment [id number]#1.00C D:127 Normal [facility] Inpatient Patient Summaryon 05-22-2023 Inpatient Patient Summary [address] [address] Clinical Summary Person Information Name: AISLINN WHEELER Age: 63 Years : 1960 Sex: Female PCP: AGUSTO OLMSTEAD CNP Marital Status: Race: White Ethnicity: Non- or Language: Yi Visit Id: Visit Reason: MIXED URINARY INCONTINENCE Speciality: Acuity: Enc Type: Outpatient Med Service: Surgery Arrival: 05/22/2023 09:41:57 Discharge: Dispo Type: Address: [address] [place] [phone] Provider Notes: Diagnosis: Feeling of incomplete bladder [...] up: With: Address: When: Lisa Vern [address], [place] [phone] Business (1) [address] [place] [address] [place], [place] [address], [place] [phone] Business (1) Comments: Office to schedule follow up in 1 month with PVR Patient Education Information: EU - Cystoscopy with Botox Injection Discharge Instructions (CUSTOM) [facility] IntraOperative Documentson 1 IntraOperative Documents [id number]#[id number] 0CD:127 [facility] Main OR Intraoperative Recor don 05-22-2023 Main OR Intraoperative Record IntraOp Document Type FTURO Summary Primary Physician: Lisa Porras MD Finalized Date/Time: 05/22/23 11:29:32 Pt. Name: AISLINN WHEELER/Sex: 1960 Female Med Rec #: [id number] Physician: Lisa Porras MD Financial #: [id number] Pt. Type: O Room/Bed: / Admit/Disch: 05/22/23 09:41:57 - Institution: Case Times FTURO Entry 1 Patient Times In Room 05/22/23 11:15:00 Out Room 05/22/23 11:30:00 Procedure Times Start 05/22/23 11:22:00 Stop 05/22/23 11:26:00 Anesthesia Times Last Modified By: Katya LE, Marilee Feldman 05/22/23 11:26:29 General Comments: BOTOX 100 UNITS LOT#: [id number] , EXP DATE: 09/2025 -Jessica BLANCO RN Case Attendance FTURO Entry 1 Entry 2 Entry 3 Case Attendee Vern TAVERAS, Lisa Blanco RN, Marilee Solano CST, Cammie Feldman Role Performed Surgeon - Primary Sign Language Interpreter - Primary Scrub - Primary Time In 05/22/23 11:15:00 05/22/23 11:15:00 05/22/23 11:15:00 Time Out 05/22/23 11:30:00 05/22/23 11:30:00 05/22/23 11:30:00 Procedure CYSTOSCOPY LOCAL BOTOX CYSTOSCOPY LOCAL BOTOX CYSTOSCOPY LOCAL BOTOX INJECTION(.) INJECTION(.) INJECTION(.) Comments Last Modified By: Katya LE, Marilee Blanco RN, Marilee Blanco RN, Marilee Feldman 05/22/23 Apryl Feldmna 05/22/23 Apryl Feldman 05/22/23 11:26:33 11:26:33 11:26:33 [...] By: Marilee Blanco RN 05/22/23 11:29 Normal [facility] Main OR Preoperative Recordo n 05-22-2023 Main OR Preoperative Record Holding Area Document Type FTURO Summary Primary Physician: Lisa Porras MD Finalized Date/Time: 05/22/23 10:32:24 Pt. Name: AISLINN WHEELER/Mary: 1960 Female Med Rec #: [id number] Physician: Lisa Porras MD Financial #: [id number] Pt. Type: O Room/Bed: / Admit/Disch: 05/22/23 [...] By: Cammie Mcpherson RN 05/22/23 10:32 Normal [facility] Operative Reporton 3 Operative Report Patient: BARBARA WHEELER Age: 63 years Sex: Female : 1960 Associated Diagnoses: None Author: Lisa Porras MD Procedure Operative Information Details: Date/ Time: 05/22/2023 11:29:00. Pre-Op Dx: Feeling of incomplete bladder emptying (LCE51-AQ R39.14, Discharge, Medical), Mixed incontinence (FXR45-HO N39.46, Discharge, Medical), Urinary leakage (UQV88-HY R32, Discharge, Medical). Post-Op Dx: Same. Anesthesia [...] to [facility] in the remote past). Normal [facility] Comment on above: Result Comment: Elec tronically Signed By: Vern TAVERAS, Lisa Montiel\.bia\Date and Time Signed: 05/22/23 11:30 EDT Outpatient Surgery Discharge Instructionon 05-22-2023 Outpatient Surgery Discharge Instruction [place] [phone] Patient Discharge Instructions PERSON INFORMATION Name: AISLINN [...] CALL 911 Follow up: With: Address: When: Lisaperez Porras [address], [facility] [place] [phone] Business (1) [address], [address], [facility] [address] [place] [phone] Business (1) Comments: Office to schedule follow [...] Date You may receive a survey from [employer] asking you to rate your care experience. Your feedback is important and will help us understand what we do well and how we can improve the quality of care we provide to you, your loved ones and our community. It?s an honor to serve you. Thank you for choosing [facility] Normal [facility] Consultation Noteon 05-19-20 Consultation Note [id number]#[id number] D:127 Normal [facility] A1C HEMOGLOBINon 05-18-2023 HbA1c (Bld) [Mass fraction] 14.0 % [employer] [facility] AISLINN WHEELER ([id number]) 1960 F Date Time Provider Department 05/18/23 ABOUASSALY, TAURUS URFHR During your visit today, we recorded the following information about you: Agusto Faulkner 05/18/2023 1:01 PM Signed Consult notes sent back to Dr. Lisa Porras , phone [phone]. From Dr. [place] office. Allergies As of [...] Encounter Status:Closed by DERIK FERNANDEZ on 06/09/23 [facility] Glucose - FINGER STICKon Glucose [Mass/Vol] 429 mg/dL [employer] Other HbA1c (Bld) [Mass fraction]o n 05-18-2023 A1C HEMOGLOBIN ffk environment [facility] [employer] Other CNOVon 05-17-2023 CNOV Office Visit (URFHR) AISLINN WHEELER ([id number]) 1960 F Date Time Provider Department 05/17/23 1:10 PM TAURUS BALLARD URR During your visit today, we recorded the following information about you: Temperature Pulse Blood pressure Weight 97.5 degrees 70/minute 172/81 60.1 kg Taurus Ballard MD 05/17/2023 1:35 PM Signed [facility] FOLLOW-UP PATIENT HISTORY AND PHYSICAL [...] 1.92 01/19/[address] scan (outside records) [facility] 09/28/21 IMPRESSION: Since the prior [...] other structures) (more content not included)... Normal [facility] C Urineon 05-13-2023 Bacteria identified Cx Nom (U) Microbiology PROCEDURE: Urine Culture [R1] SOURCE: U CleanCatch BODY SITE: COLLECTED DATE/TIME: 05/11/2023 11:49 EDT RECEIVED DATE/TIME: 05/11/2023 18:32 EDT START DATE/TIME: 05/11/2023 18:32 EDT FREE TEXT SOURCE: HEIDY ARNOLD PA-C, PA-C, HEIDY E FINAL REPORTS Final Report [] Verified [...] Locations R1: This test was performed at: [facility], [address] [place] [address], [address] , [place], [facility] Comment on above: Performed By: #### 2 [id number] #### [facility] [address] [place] [address] Physician Referralon 023 Physician Referral [id number]#1.00CD :127 PATIENT IS SCHEDULED 05/17/2023 [facility] Consultation Noteon 05-04-20 23 Consultation Note [id number]#1.00CD :127 [facility] Insurance Correspondenceon 0 05-04-2023 Insurance Correspondence [id number]#[id number] CD:127 [facility] Urology Office/Clinic Noteon 05-04-2023 Urology Office/Clinic Note [...] mass on Kidney was not cancerous. However transformer maker told her she has kidney cancer. Denies [...] PSH lap cholecystectomy, open hysterectomy -Continues with transformer maker for CKD3 1. Renal cyst (N28.1: Cyst [...] pt to tertiary center, Dr. Ballard at [facility] for evaluation of robotic left cyst decortication -Pt states transformer maker told her she has cancer. 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 Ordered: 18504 Measure Post Void residual urine and/or bladder capacity by US- non-imaging Urnls Dip Stick Auto w/o Microscopy POC 64765 2. Mixed incontinence (N39.46: Mixed incontinence) Pt [...] of Botox. (more content not included)... Normal [facility] Comment on above: Result Comment: Elec tronically Signed By: Vern TAVERAS, Lisa Montiel\.br\Date and Time Signed: 05/04/23 14:11 EDT Ambulatory Visit Summaryon 0 05-03-2023 Ambulatory Visit Summary AISLINN WHEELER :1960 Visit Date:05/03/2023 Ambulatory Visit Instructions Your Diagnosis Renal mass Renal cyst Mixed incontinence Feeling of incomplete bladder emptying Glucosuria Tests Performed Urnls Dip Stick Auto w/o Microscopy POC 40512 Your Care Team Attending Physician - Lisa [...] one day prior to procedure Pickup at [facility] New estradiol topical (Estrace 0.1 mg/ g Cream) See instructions Refills: 3 apply pea size amount to urethra/ inner vagina 3x/ week x 1 month, then 2x/ week for maintainence Pickup at [facility] Unchanged trospium (trospium 20 mg oral [...] physician if questions or concerns Pharmacy Information [facility]: [address] [place] [phone] Test Results Urnls Dip Stick Auto w/o Microscopy POC 53719 (05/03/2023) Bilirubin Urine Dipstick - Negative Blood Urine Dipstick - Trace-intact Glucose Urine Dipstick - 3+ 1000 mg/dl Ketones Urine Dipstick - Negative Leukocytes Urine Dipstick - Negative Nitrite Urine Dipstick - Negative Protein Urine Dipstick - Trace Specific [place] Urine Dipstick - 1.015 Urine Appearance Urine [...] are saf (more content not included)... Normal [facility] Patient Educationon 05-03-20 Patient Education Obstetrics [...] provider. Document Revised: 12/16/2021 Document Reviewed: 12/16/2021 Elsevier Patient Education ? 2022 [employer] [facility] [place] 05-03-2023 Screens [id number]#1.00 CD:127 [facility] C Urineon 04-20-2023 [...] Locations R1: This test was performed at: [facility], [address] [place] [address], [address] [place] [address], [facility] Comment on above: Performed By: #### 2 [id number] ####[facility] [address] [place] [address] Ambulatory Visit Summaryon 0 04-18-2023 Ambulatory Visit [...] Lisa Porras MD Where: [facility] [place] 02-23-2023 Screens [id number]#1.00 CD:127 Normal [facility] Ambulatory Visit Summaryon 0 02-22-2023 Ambulatory Visit Summary AISLINN WHEELER :1960 Visit Date:02/22/2023 Ambulatory Visit Instructions Your Diagnosis Renal mass Renal cyst Mixed incontinence Feeling of incomplete bladder emptying Glucosuria Tests Performed Urnls Dip Stick Auto w/o Microscopy POC 45778 Your Care Team Attending Physician - Lisa [...] Lisa Porras MD Where: [facility] Patient Educationon 02-23-20 23 Patient Education [...] provider. Document Revised: 12/16/2021 Document Reviewed: 12/16/2021 [employer] Patient Education ? 2022 [employer] Fabio [facility] Urology Office/Clinic Noteon 02-22-2023 Urology Office/Clinic [...] PSH lap cholecystectomy, open hysterectomy -Continues with transformer maker after referred last visit 1. Renal mass [...] and the (more content not included)... Normal [facility] Comment on above: Result Comment: Elec tronically Signed By: Lisa Porras MD\.br\Date and Time Signed: 02/22/23 10:14 EDT\.br\Electronically Co-Signed By: Marilee Gray\.br\Date and Time Co-Signed: 02/22/23 09:36 EDT Lab Reportson 02-20-2023 Lab Reports [id number]#1.00C D:127 Normal [facility] RAD - CT Reporton 02-20-2023 RAD - CT Report [id number]#1.00CD :127 Normal [facility] Physician Orderon 02-01-2023 Physician Order [id number]#1.00CD :127 Normal [facility] Consultation Noteon 01-08-20 Consultation Note [id number]#1.00C D:127 Normal [facility] XR FOOT LT MIN 3 VIEWSon XR FOOT LT MIN 3 VIEWS Normal [facility] MG MAMM SCREEN 3D ALINE CADon 12-28-2022 MG MAMM SCREEN 3D ALINE CAD Normal [facility] XR DEXA BONE DENSITYon 12-28 XR DEXA BONE DENSITY Normal [facility] NM STRESS/REST MULTIon 12-15 NM STRESS/REST MULTI Normal [facility] XR FOOT LT MIN 3 VIEWSon XR FOOT LT MIN 3 VIEWS Normal [facility] Physician Referralon 023 Physician Referral [id number]#1.00C D:127 Normal [facility] CT FOOT LT WO CONon 10-28-19 CT FOOT LT WO CON Normal [facility] XR FOOT LT MIN 3 VIEWSon XR FOOT LT MIN 3 VIEWS Normal [facility] XR FOOT LT MIN 3 VIEWSon XR FOOT LT MIN 3 VIEWS Normal [facility] XR FOOT LT MIN 3 VIEWSon XR FOOT LT MIN 3 VIEWS Normal [facility] XR FOOT LT MIN 3 VIEWSon XR FOOT LT MIN 3 VIEWS Normal [facility] XR FOOT LT MIN 3 VIEWSon XR FOOT LT MIN 3 VIEWS Normal [facility] US KIDNEYSon 09-15-2022 US KIDNEYS Normal [facility] XR FOOT LT MIN 3 VIEWSon XR FOOT LT MIN 3 VIEWS Normal [facility] XR FOOT LT MIN 3 VIEWSon XR FOOT LT MIN 3 VIEWS Normal [facility] XR FOOT LT MIN 3 VIEWSon XR FOOT LT MIN 3 VIEWS Normal [facility] CBC AUTO DIFFon 08-03-2022 BASO # 0.0 103/ul Normal 0.0-0.1 [facility] Comment on above: Performed By: #### C BC ####[facility] [address] [place] [address]Dr. Ricardo Rocha Basophils/100 WBC (Bld) 0.5 % Normal 0.2-2.0 [facility] Comment on above: Performed By: #### C BC ####[facility] [address] [place] [id number]. Ricardo Rocha EO # 0.1 103/ul Normal 0.0-0.7 [facility] Comment on above: Performed By: #### C BC ####[facility] [address] [place] [id number]. Ricardo Rocha Eosinophils/100 WBC (Bld) 1.2 % Normal 0.9-7.0 [facility] Comment on above: Performed By: #### C BC ####[facility] [address] [place] [address]Dr. Ricardo Rocha Erythrocyte distribution width (RBC) [Ratio] 15.0 % Normal 11.0-15.0 [facility] Comment on above: Performed By: #### C BC ####[facility] [address] [place], [place] [address]Dr. Ricardo Rocha Hematocrit (Bld) [Volume fraction] 29.5 % Critically low 36.0-48.0 [facility] Comment on above: Performed By: #### C BC ####[facility] [address] [place], [place] [address]Dr. Ricardo Rocha Hemoglobin (Bld) [Mass/Vol] 9.3 g/dL Critically low 12.0-16.0 [facility] Comment on above: Performed By: #### C BC ####[facility] [address] [place], [place] [address]Dr. Ricardo Rocha IG # 0.04 10e3/ul Critically high 0.00-0.03 [facility] Comment on above: Performed By: #### C BC ####[facility] [address] [place], [place] [address]Dr. Ricardo Rocha IG % 0.5 % Normal 0.0-0.5 [facility] Comment on above: Performed By: #### C BC ####[facility] [address] [place], [place] [address]Dr. Ricardo Rocha LYMPH # 1.4 103/ul Normal 1.2-3.8 [facility] Comment on above: Performed By: #### C BC ####[facility] [address] [place], [place] [address]Dr. Ricardo Rocha Lymphocytes/100 WBC (Bld) 17.2 % Critically low 20.5-60.0 [facility] Comment on above: Performed By: #### C BC ####[facility] [address] [place] [id number]. Ricardo Rocha MANUAL DIFF REQ NO Normal [facility] Comment on above: Performed By: #### C BC ####[facility] [address] [place] [id number]. Ricardo Aj MCH (RBC) [Entitic mass] 25.2 pg Critically low 26.7-34.0 [facility] Comment on above: Performed By: #### C BC ####[facility] [address] [place] [id number]. Ricardo Aj MCHC (RBC) [Mass/Vol] 31.5 g/dL Normal 29.9-35.2 [facility] Comment on above: Performed By: #### C BC ####[facility] [address] [place] [address]Dr. Nanomarcial Rocha MCV (RBC) [Entitic vol] 79.9 fL Critically low 81.0-99.0 [facility] Comment on above: Performed By: #### C BC ####[facility] [address] [place], [place] [address]Dr. Ricardo Aj MONO # 0.6 103/ul Normal 0.3-0.8 [facility] Comment on above: Performed By: #### C BC ####[facility] [address] [place], [place] [address]Dr. Nanomarcial Rocha Monocytes/100 WBC (Bld) 7.6 % Normal 1.7-12.0 [facility] Comment on above: Performed By: #### C BC ####[facility] [address] [place], [place] [address]Dr. Ricardo Rocha NEUT # 5.9 103/ul Normal 1.4-6.5 [facility] Comment on above: Performed By: #### C BC ####[facility] [address] [place], [place] [address]Dr. Ricardo Rocha Neutrophils/100 WBC (Bld) 73.0 % Normal 43.0-75.0 [facility] Comment on above: Performed By: #### C BC ####[facility] [address] [place] [id number]. Ricardo Rocha Platelet mean volume (Bld) [Entitic vol] 11.4 fL Normal 9.5-13.5 [facility] Comment on above: Performed By: #### C BC ####[facility] [address] [place] [id number]. Ricardo Rocha PLT 253 103/ul Normal 150-450 [facility] Comment on above: Performed By: #### C BC ####[facility] [address] [place] [id number]. Ricardo Rocha RBC 3.69 106/ul Critically low 4.20-5.40 [facility] Comment on above: Performed By: #### C BC ####[facility] [address] [place] [address]Dr. Ricardo Rocha WBC 8.0 103/ul Normal 4.0-11.0 [facility] Comment on above: Performed By: #### C BC ####[facility] [address] [place] [id number]. Ricardo Rocha CRPon 08-03-2022 CRP 3.1 mg/dL Critically high <=1.0 [facility] Comment on above: Performed By: #### C RP, BMP, URIC ####[facility] [address] [place] [id number]. Ricardo Rocha CULTURE BLOODon 08-03-2022 Microscopic examination of blood, culture Culture Observations: NO GROWTH AT 5 DAYS. Normal [facility] Comment on above: Performed By: #### B LDCX2 ####[facility] [address] [place] [id number]. Ricardo Rocha Microscopic examination of blood, culture Culture Observations: NO GROWTH AT 5 DAYS. Normal [facility] Comment on above: Performed By: #### B LDCX1 ####[facility] [address] [place] [id number]. Ricardo Rocha ER URINE PROFILEon 2 Bilirubin Ql (U) Negative Normal NEGATIVE [facility] Comment on above: Performed By: #### E RUR ####[facility] [address] [place], [place] [address]Dr. Ricardo Rocha Clarity (U) CLEAR Normal CLEAR [facility] Comment on above: Performed By: #### E RUR ####[facility] [address] [place], [place] [address]Dr. Ricardo Rocha Color (U) LT. YELLOW Normal YELLOW [facility] Comment on above: Performed By: #### E RUR ####[facility] [address] [place], [place] [address]Dr. Nanomarcial Rocha ERUAHD A micrscopic examination will be performed if indicated. Normal [facility] Comment on above: Performed By: #### E RUR ####[facility] [address] [place], [place] [address]Dr. Ricardo Rocha Glucose Ql (U) 100 mg/dl Abnormal NEGATIVE [facility] Comment on above: Performed By: #### E RUR ####[facility] [address] [place], [place] [address]Dr. Ricardo Rocha Hemoglobin Ql (U) Negative Normal NEGATIVE [facility] Comment on above: Performed By: #### E RUR ####[facility] [address] [place], [place] [address]Dr. Ricardo Rocha Ketones Ql (U) Negative Normal NEGATIVE [facility] Comment on above: Performed By: #### E RUR ####[facility] [address] [place], [place] [address]Dr. Ricardo Rocha LEUKOCYTES Negative Normal NEGATIVE [facility] Comment on above: Performed By: #### E RUR ####[facility] [address] [place], [place] [address]Dr. Ricardo Rocha Nitrite Ql (U) Negative Normal NEGATIVE [facility] Comment on above: Performed By: #### E RUR ####[facility] [address] [place], [place] [address]Dr. Nanomarcial Rocha pH (U) 6.0 [pH] Normal 5-9 [facility] Comment on above: Performed By: #### E RUR ####[facility] [address] [place] [address]Dr. Ricardo Rocha SPEC GRAVITY 1.010 Normal 1.005-<=1.02 5 [facility] Comment on above: Performed By: #### E RUR ####[facility] [address] [place], [place] [address]Dr. Ricardo Rocha UA PROTEIN Negative Normal NEGATIVE/ TRACE [facility] Comment on above: Performed By: #### E RUR ####[facility] [address] [place], [place] [address]Dr. Ricardo Rocha UR MICRO IND NOT INDICATED Normal [facility] Comment on above: Performed By: #### E RUR ####[facility] [address] [place], [place] [address]Dr. Ricardo Rocha Urobilinogen Qn (U) 0.2 {Madeleine'U}/dL Normal 0.2 - 1. 0 [facility] Comment on above: Performed By: #### E RUR ####[facility] [address] [place], [place] [address]Dr. Ricardo Rocha LACTATE/LACTIC ACIDon 2021 Lactate [Moles/Vol] 0.5 mmol/L Normal 0.4-1.9 [facility] Comment on above: Performed By: #### L ACT ####[facility] [address] [place], [place] [address]Dr. Ricardo Rocha PROF CHEM 8 (BAS METB)on Anion gap [Moles/Vol] 12.9 mmol/L Normal [facility] Comment on above: Performed By: #### C RP, BMP, URIC ####[facility] [address] [place], [place] [address]Dr. Ricardo Rocha Calcium [Mass/Vol] 9.0 mg/dL Normal 8.5-10.1 [facility] Comment on above: Performed By: #### C RP, BMP, URIC ####[facility] [address] [place], [place] [address]Dr. Ricardo Rocha Chloride [Moles/Vol] 102 mmol/L Normal 98-107 [facility] Comment on above: Performed By: #### C RP, BMP, URIC ####[facility] [address] [place] [address]Dr. Ricardo Rocha CO2 [Moles/Vol] 23.9 mmol/L Normal 21.0-32.0 [facility] Comment on above: Performed By: #### C RP, BMP, URIC ####[facility] [address] [place] [address]Dr. Ricardo Rocha Creatinine [Mass/Vol] 1.36 mg/dL Critically high 0.55-1.02 [facility] Comment on above: Performed By: #### C RP, BMP, URIC ####[facility] [address] [place] [address]Dr. Ricardo Rocha EGFR-AF ISRAELI 47 mL/min/1.73m2 Critically low >=60 [facility] Comment on above: Performed By: #### C RP, BMP, URIC ####[facility] [address] [place], [place] [address]Dr. Ricardo Rocha EGFR-NON AF ISRAELI 39 mL/min/1.73m2 Critically low >=60 [facility] Comment on above: Performed By: #### C RP, BMP, URIC ####[facility] [address] [place] [address]Dr. Ricardo Rocha Glucose [Mass/Vol] 125 mg/dL Critically high 74-106 [facility] Comment on above: Performed By: #### C RP, BMP, URIC ####[facility] [address] [place] [address]Dr. Ricardo Rocha Potassium [Moles/Vol] 4.8 mmol/L Normal 3.5-5.1 [facility] Comment on above: Performed By: #### C RP, BMP, URIC ####[facility] [address] [place] [address]Dr. Ricardo Rocha Sodium [Moles/Vol] 134 mmol/L Critically low 136-145 [facility] Comment on above: Performed By: #### C RP, BMP, URIC ####[facility] [address] [place] [address]Dr. Ricardo Rocha Urea nitrogen [Mass/Vol] 22.0 mg/dL Critically high 7.0-18.0 [facility] Comment on above: Performed By: #### C RP, BMP, URIC ####[facility] [address] [place] [address]Dr. Ricardo Rocha Urea nitrogen/Creatinine [Mass ratio] 16.2 mg/mg Normal [facility] Comment on above: Performed By: #### C RP, BMP, URIC ####[facility] [address] [place] [address]Dr. Ricardo Rocha SED [facility] SED RATE 95 mm/hr Critically high <=30 [facility] Comment on above: Performed By: #### S EDR ####[facility] [address] [place], [place] [address]Dr. Ricardo Rocha URIC ACID SERUMon 08-03-2022 Urate [Mass/Vol] 4.7 mg/dL Normal 2.6-6.0 [facility] Comment on above: Performed By: #### C RP, BMP, URIC ####[facility] [address] [place], [place] [address]Dr. Ricardo Rocha XR FOOT LT MIN 3 VIEWSon XR FOOT LT MIN 3 VIEWS Normal [facility] PROF CHEM 8 (BAS METB)on Anion gap [Moles/Vol] 13.8 mmol/L Normal [facility] Comment on above: Performed By: #### B MP ####[facility] [address] [place], [place] [address]Dr. Nanomarcial Rocha Calcium [Mass/Vol] 8.9 mg/dL Normal 8.5-10.1 [facility] Comment on above: Performed By: #### B MP ####[facility] [address] [place], [place] [address]Dr. Nanomarcial Aj Chloride [Moles/Vol] 101 mmol/L Normal 98-107 [facility] Comment on above: Performed By: #### B MP ####[facility] [address] [place] [id number]. Ricardo Rocha CO2 [Moles/Vol] 22.8 mmol/L Normal 21.0-32.0 [facility] Comment on above: Performed By: #### B MP ####[facility] [address] [place] [id number]. Ricardo Aj Creatinine [Mass/Vol] 1.43 mg/dL Critically high 0.55-1.02 [facility] Comment on above: Performed By: #### B MP ####[facility] [address] [place] [id number]. Ricardo Aj EGFR-AF ISRAELI 45 mL/min/1.73m2 Critically low >=60 [facility] Comment on above: Performed By: #### B MP ####[facility] [address] [place], [place] [address]Dr. Ricardo Rocha EGFR-NON AF ISRAELI 37 mL/min/1.73m2 Critically low >=60 [facility] Comment on above: Performed By: #### B MP ####[facility] [address] [place] [id number]. Ricardo Aj Glucose [Mass/Vol] 279 mg/dL Critically high 74-106 [facility] Comment on above: Performed By: #### B MP ####[facility] [address] [place] [id number]. Ricardo Rocha Potassium [Moles/Vol] 4.6 mmol/L Normal 3.5-5.1 [facility] Comment on above: Performed By: #### B MP ####[facility] [address] [place] [id number]. Ricardo Rocha Sodium [Moles/Vol] 133 mmol/L Critically low 136-145 [facility] Comment on above: Performed By: #### B MP ####[facility] [address] [place] [id number]. Ricardo Rocha Urea nitrogen [Mass/Vol] 24.0 mg/dL Critically high 7.0-18.0 [facility] Comment on above: Performed By: #### B MP ####[facility] [address] [place] [id number]. Ricardo Rocha Urea nitrogen/Creatinine [Mass ratio] 16.8 mg/mg Normal [facility] Comment on above: Performed By: #### B MP ####[facility] [address] [place] [id number]. Ricardo Rocha ACID FAST SMEAR AND CXon Acid Fast Culture Negative Normal [facility] Comment on above: Result Comment: No a amilcar fast bacilli isolated after 6 weeks. Performed By: #### A FB ####[facility] [address] [place], [place] [address]Dr. Ricardo Rocha Acid Fast Smear Negative Normal [facility] Comment on above: Performed By: #### A FB ####[facility] [address] [place], [place] [address]Dr. Ricardo [employer]ocha [employer] Specimen Processing Direct Inoculation [facility] Comment on above: Performed By: #### A FB ####[facility] Gogauhfyij[address] [place], [place] [address]Dr. Ricardo [employer] Specimen Processing Tissue Grinding [facility] Comment on above: Performed By: #### A FB ####[facility] Padjwbftaw[address] [place], [place] [id number]. Ricardo Rocha FUNGAL CULTUREon 07-11-2022 Fungus (Mycology) Culture Final report [facility] Comment on above: Performed By: #### C XFUN ####[facility] Dlxhzawyge[address] [place] [id number]. Ricardo Rocha Fungus Stain Final report Normal [facility] Comment on above: Performed By: #### C XFUN ####[facility] H[address]jcb[address] [place], [place] [id number]. Ricardo Rocha Result 1 Comment Normal [facility] Comment on above: Result Comment: AAYUSH/ Calcofluor preparation: no fungus observed. Performed By: #### C XFUN ####[facility] Mqaddipiog[address] [place], [place] [address]Dr. Ricardo Rocha Result Comment: No y east or mold isolated after 4 weeks. PROF CHEM 8 (BAS METB)on Anion gap [Moles/Vol] 15.1 mmol/L Normal [facility] Comment on above: Performed By: #### B MP ####[facility] [address]xtfktnrra[address] [place] [phone]. Ricardo Rocha Calcium [Mass/Vol] 9.0 mg/dL Normal 8.5-10.1 [facility] Comment on above: Performed By: #### B MP ####[facility] S[address]puisliw[address] [place] [address]Dr. Ricardo Rocha Chloride [Moles/Vol] 101 mmol/L Normal 98-107 [facility] Comment on above: Performed By: #### B MP ####[facility] Hellgjrngo[address] [place], [place] [address]Dr. Ricardo Rocha CO2 [Moles/Vol] 18.5 mmol/L Critically low 21.0-32.0 [facility] Comment on above: Performed By: #### B MP ####[facility] Ylfarwlazu[address] [place], [place] [address]Dr. Ricardo Rocha Creatinine [Mass/Vol] 2.05 mg/dL Critically high 0.55-1.02 [facility] Comment on above: Performed By: #### B MP ####[facility] Wbocsdndpi[address] [place], [place] [address]Dr. Ricardo Rocha EGFR-AF ISRAELI 30 mL/min/1.73m2 Critically low >=60 [facility] Comment on above: Performed By: #### B MP ####[facility] Kqjorpadow[address] [place], [place] [address]Dr. Ricardo Rocha EGFR-NON AF ISRAELI 24 mL/min/1.73m2 Critically low >=60 [facility] Comment on above: Performed By: #### B MP ####[facility] Bmeiqexlvd[address] [place], [place] [address]Dr. Ricardo Rocha Glucose [Mass/Vol] 134 mg/dL Critically high 74-106 [facility] Comment on above: Performed By: #### B MP ####[facility] [address]staducc[address] [place] [address]Dr. Ricardo Rocha Potassium [Moles/Vol] 5.6 mmol/L Critically high 3.5-5.1 [facility] Comment on above: Performed By: #### B MP ####[facility] Rxqizwpktt57[address] [place], [place] [address]Dr. Ricardo Aj Sodium [Moles/Vol] 129 mmol/L Critically low 136-145 Th e [facility] Comment on above: Performed By: #### B MP ####[facility] Skddkthlrr[address] [place], [place] [address]Dr. Ricardo Rocha Urea nitrogen [Mass/Vol] 57.0 mg/dL Critically high 7.0-18.0 [facility] Comment on above: Performed By: #### B MP ####[facility] Jqilomynjn[address] [place], [place] [address]Dr. Ricardo Aj Urea nitrogen/Creatinine [Mass ratio] 27.8 mg/mg Normal [facility] Comment on above: Performed By: #### B MP ####[facility] Bzjahhfpgu387[address] [place], [place] [address]Dr. Ricardo Aj CBC AUTO DIFFon 07-06-2022 BASO # 0.0 103/ul Normal 0.0-0.1 [facility] Comment on above: Performed By: #### C BC ####[facility] Ikadqrwuaz[address] [place], [place] [address]Dr. Ricardo Aj Basophils/100 WBC (Bld) 0.6 % Normal 0.2-2.0 [facility] Comment on above: Performed By: #### C BC ####[facility] Jmneciqovw127[address] [place], [place] [address]Dr. Ricardo Aj EO # 0.1 103/ul Normal 0.0-0.7 [facility] Comment on above: Performed By: #### C BC ####[facility] Txgzfpvdef86[address] [place], [place] [address]Dr. Ricardo Rocha Eosinophils/100 WBC (Bld) 1.7 % Normal 0.9-7.0 [facility] Comment on above: Performed By: #### C BC ####[facility] Fduxaadyac[address] [place] [address]Dr. Ricardo Rocha Erythrocyte distribution width (RBC) [Ratio] 15.2 % Critically high 11.0-15.0 [facility] Comment on above: Performed By: #### C BC ####[facility] Tuagouiltp[address] [place] [address]Dr. Ricardo Rocha Hematocrit (Bld) [Volume fraction] 34.6 % Critically low 36.0-48.0 [facility] Comment on above: Performed By: #### C BC ####[facility] Vmjqsrslnu[address] [place], [place] [address]Dr. Ricardo Rocha Hemoglobin (Bld) [Mass/Vol] 10.5 g/dL Critically low 12.0-16.0 [facility] Comment on above: Performed By: #### C BC ####[facility] Ajqkjvhrfj[address] [place], [place] [address]DrIrina Ricardo Rocha IG # 0.01 10e3/ul Normal 0.00-0.03 [facility] Comment on above: Performed By: #### C BC ####[facility] Ajszkuxmim5[address] [place], [place] [address]Dr. Ricardo Rocha IG % 0.2 % Normal 0.0-0.5 [facility] Comment on above: Performed By: #### C BC ####[facility] Lqcksakqcn[address] [place], [place] [address]DrIrina Ricardo Rocha LYMPH # 2.4 103/ul Normal 1.2-3.8 [facility] Comment on above: Performed By: #### C BC ####[facility] Qbvpocbwia[address] [place], [place] [address]DrIrina Ricardo Rocha Lymphocytes/100 WBC (Bld) 44.4 % Normal 20.5-60.0 [facility] Comment on above: Performed By: #### C BC ####[facility] Ggzsouzrvu[address] [place], [place] [address]Dr. Ricardo Aj MANUAL DIFF REQ NO Normal [facility] Comment on above: Performed By: #### C BC ####[facility] L[address]fmkzqoy232[address] [place] [phone]. Ricardo Aj MCH (RBC) [Entitic mass] 25.0 pg Critically low 26.7-34.0 [facility] Comment on above: Performed By: #### C BC ####[facility] Ocmesvmvui[address] [place] [address]Dr. Ricardo Rocha MCHC (RBC) [Mass/Vol] 30.3 g/dL Normal 29.9-35.2 [facility] Comment on above: Performed By: #### C BC ####[facility] Kfslelfgjh7[address] [place] [address]Dr. Ricardo Rocha MCV (RBC) [Entitic vol] 82.4 fL Normal 81.0-99.0 [facility] Comment on above: Performed By: #### C BC ####[facility] Qgsppuitqm[address] [place], [place] [address]Dr. Ricardo Rocha MONO # 0.3 103/ul Normal 0.3-0.8 [facility] Comment on above: Performed By: #### C BC ####[facility] Neqaxhcgaq[address] [place], [place] [address]Dr. Ricardo Rocha Monocytes/100 WBC (Bld) 5.1 % Normal 1.7-12.0 [facility] Comment on above: Performed By: #### C BC ####[facility] [address]oodkovex[address] [place], [place] [address]Dr. Ricardo Rocha NEUT # 2.5 103/ul Normal 1.4-6.5 [facility] Comment on above: Performed By: #### C BC ####[facility] Ihkunkwyqd[address] [place], [place] [address]DrIrina Rocha Neutrophils/100 WBC (Bld) 48.0 % Normal 43.0-75.0 [facility] Comment on above: Performed By: #### C BC ####[facility] Boklvhrncv[address] [place], [place] [address]DrIrina Rocha Platelet mean volume (Bld) [Entitic vol] 10.7 fL Normal 9.5-13.5 [facility] Comment on above: Performed By: #### C BC ####[facility] [address]lcumici[address] [place] [address]Dr. Ricardo Rocha PLT 261 103/ul Normal 150-450 [facility] Comment on above: Performed By: #### C BC ####[facility] Cwhadbuirw[address] [place] [phone]. Ricardo Rocha RBC 4.20 106/ul Normal 4.20-5.40 [facility] Comment on above: Performed By: #### C BC ####[facility] Loxryvlafm[address] [place] [address]Dr. Ricardo Rocha WBC 5.3 103/ul Normal 4.0-11.0 [facility] Comment on above: Performed By: #### C BC ####[facility] Z[address]aycsmzl[address] [place] [address]Dr. Ricardo Rocha GLYCOHEMOGLOBIN A1Con 2021 ADA RECOMMENDATION SEE BELOW Normal [facility] Comment on above: Result Comment: ADA RECOMMENDED LIMIT 4.0 - 6.0 ADA THERAPEUTIC TARGET < 7.0 ACTION SUGGESTED > 7.0 Performed By: #### A 1C ####[facility] [address] [place], [place] [address]Dr. Ricardo Rocha Glucose [Mass/Vol] 289 mg/dL Normal [facility] Comment on above: Performed By: #### A 1C ####[facility] Scpkelptag[address] [place] [address]Dr. Ricardo Rocha HbA1c (Bld) [Mass fraction] 11.7 % Critically high 4.5-6.2 [facility] Comment on above: Performed By: #### A 1C ####[facility] [address]xsxd[address] [place], [place] [address]Dr. Ricardo Rocha LIPID PROFILEon 07-06-2022 CHOL-HDL RATIO NORM SEE BELOW Normal [facility] Comment on above: Result Comment: 3.3 - 4.4 LOW RISK 4.4 - 7.1 AVERAGE RISK 7.1 - 11.0 MODERATE RISK >11.0 HIGH RISK Performed By: #### T SH, CMP, LIPID ####[facility] [address] [place], [place] [address]Ab. Ricardo Rocha Cholesterol [Mass/Vol] 284 mg/dL Critically high <=200 [facility] Comment on above: Performed By: #### T SH, CMP, LIPID ####[facility] Mlpiokmjyu[address] [place] [phone]. Ricardo Rocha Cholesterol in HDL [Mass/Vol] 40 mg/dL Normal 40-60 [facility] Comment on above: Performed By: #### T SH, CMP, LIPID ####[facility] Ibjizulhhe44[address] [place] [phone]. Ricardo Rocha Cholesterol in LDL [Mass/Vol] 167.8 mg/dL Normal [facility] Comment on above: Performed By: #### T SH, CMP, LIPID ####[facility] Drrkmsvtwi3762 [place] [phone]. Ricardo Rocha Cholesterol.total/Ch olesterol in HDL [Mass ratio] 7.1 {ratio} Normal [facility] Comment on above: Performed By: #### T SH, CMP, LIPID ####[facility] [address]ienf[address] [place] [phone]. Ricardo Rocha HDL NORMAL > or = 60 mg/dl - LO W CARDIOVASCULAR RISK <40 mg/dl - HIGH CARDIOVASCULAR RISK Normal [facility] Comment on above: Performed By: #### T SH, CMP, LIPID ####[facility] [address]zlpcrdaua4[address] [place] [phone]. Ricardo Rocha LDL CALC NORMAL SEE BELOW Normal [facility] Comment on above: Result Comment: <100 mg/dl OPTIMAL 100 - 129 mg/dl NEAR OR ABOVE OPTIMAL 130 - 159 mg/dl BORDERLINE HIGH 160 - 189 mg/dl HIGH >190 mg/dl VERY HIGH Performed By: #### T SH, CMP, LIPID ####[facility] Dzeshbqsii[address] [place] [phone]. Ricardo Rocha Triglyceride [Mass/Vol] 381 mg/dL Critically high <=150 [facility] Comment on above: Performed By: #### T SH, CMP, LIPID ####[facility] Zjkkfsjzzm8949 [place] [phone]. Ricardo Rocha VLDL CALC 76.2 mg/dL Normal [facility] Comment on above: Performed By: #### T SH, CMP, LIPID ####[facility] Tynbrropom[address] [place] [phone]. Ricardo Rocha MICROALBUMIN, RAND URon 11- mALB <1.3 Normal <=30.0 [facility] Comment on above: Performed By: #### M ALBR ####[facility] [address]cejvtyvej[address] [place] [address]Dr. Ricardo Rocha PROF 14(COMP METB)on 022 Albumin [Mass/Vol] 3.3 g/dL Critically low 3.4-5.0 Th [facility] Comment on above: Performed By: #### T SH, CMP, LIPID ####[facility] Owljkpocrd[address] [place] [address]Dr. Ricardo Rocha Albumin/Globulin [Mass ratio] 0.5 {ratio} Normal [facility] Comment on above: Performed By: #### T SH, CMP, LIPID ####[facility] Jnlzbwvomq[address] [place] [address]Dr. Ricardo Rocha ALP [Catalytic activity/Vol] 129 U/L Critically high 46-116 [facility] Comment on above: Performed By: #### T SH, CMP, LIPID ####[facility] Pyoxpebyrc[address] [place] [address]Dr. Ricardo Rocha ALT [Catalytic activity/Vol] 22 U/L Normal 14-59 [facility] Comment on above: Performed By: #### T SH, CMP, LIPID ####[facility] Jmrnooetmn4[address] [place] [address]Dr. Ricardo Rocha Anion gap [Moles/Vol] 16.1 mmol/L Normal [facility] Comment on above: Performed By: #### T SH, CMP, LIPID ####[facility] Nbntjwtjeo67[address] [place] [address]Dr. Ricardo Rocha AST [Catalytic activity/Vol] 22 U/L Normal 15-37 [facility] Comment on above: Performed By: #### T SH, CMP, LIPID ####[facility] Ldokgiqcvw0635 [place] [address]Dr. Ricardo Rocha Bilirubin [Mass/Vol] 0.2 mg/dL Normal 0.2-1.0 [facility] Comment on above: Performed By: #### T SH, CMP, LIPID ####[facility] Bscesmnhpy[address] [place] [address]Dr. Ricardo Rocha Calcium [Mass/Vol] 9.4 mg/dL Normal 8.5-10.1 [facility] Comment on above: Performed By: #### T SH, CMP, LIPID ####[facility] [address]xdcykwuwn[address] [place], [place] [address]Dr. Ricardo Rocha Chloride [Moles/Vol] 102 mmol/L Normal 98-107 [facility] Comment on above: Performed By: #### T SH, CMP, LIPID ####[facility] [address]buotoctks[address] [place], [place] [address]Dr. Ricardo Rocha CO2 [Moles/Vol] 18.4 mmol/L Critically low 21.0-32.0 [facility] Comment on above: Performed By: #### T SH, CMP, LIPID ####[facility] Motgdnzzdy[address] [place], [place] [address]Dr. Ricardo Rocha Creatinine [Mass/Vol] 2.01 mg/dL Critically high 0.55-1.02 [facility] Comment on above: Performed By: #### T SH, CMP, LIPID ####[facility] [address]lsiqqkecg15[address] [place] [address]Dr. Ricardo Rocha EGFR-AF ISRAELI 30 mL/min/1.73m2 Critically low >=60 [facility] Comment on above: Performed By: #### T SH, CMP, LIPID ####[facility] [address]wgweysder[address] [place], [place] [address]Dr. Ricardo Rocha EGFR-NON AF ISRAELI 25 mL/min/1.73m2 Critically low >=60 [facility] Comment on above: Performed By: #### T SH, CMP, LIPID ####[facility] Dfwakfpzee[address] [place] [address]Dr. Ricardo Rocha Globulin (S) [Mass/Vol] 6.3 g/dL Normal [facility] Comment on above: Performed By: #### T SH, CMP, LIPID ####[facility] Nyzqvtmtfu76[address] [place] [address]Dr. Ricardo Rocha Glucose [Mass/Vol] 118 mg/dL Critically high 74-106 [facility] Comment on above: Performed By: #### T SH, CMP, LIPID ####[facility] Oanrzlrcam15[address] [place] [address]Dr. Ricardo Rocha Potassium [Moles/Vol] 5.5 mmol/L Critically high 3.5-5.1 [facility] Comment on above: Performed By: #### T SH, CMP, LIPID ####[facility] Vhwhabjyjl7039 [place] [address]Dr. Ricardo Rocha Protein [Mass/Vol] 9.6 g/dL Critically high 6.4-8.2 [facility] Comment on above: Performed By: #### T SH, CMP, LIPID ####[facility] Uqnjttlmoq[address] [place] [address]Dr. Ricardo Rocha Sodium [Moles/Vol] 131 mmol/L Critically low 136-145 [facility] Comment on above: Performed By: #### T SH, CMP, LIPID ####[facility] Yyuhtansyc3650 [place] [address]Dr. Ricardo Rocha Urea nitrogen [Mass/Vol] 45.0 mg/dL Critically high 7.0-18.0 [facility] Comment on above: Performed By: #### T SH, CMP, LIPID ####[facility] Tgspsqavxn5367 [place] [address]Dr. Ricardo Rocha Urea nitrogen/Creatinine [Mass ratio] 22.4 mg/mg [facility] Comment on above: Performed By: #### T SH, CMP, LIPID ####[facility] Tnzlrvuzou[address]132 [place] [address]Dr. Ricardo Rocha TSHon 07-06-2022 TSH 1.178 uIU/mL Normal 0.358-3.740 [facility] Comment on above: Performed By: #### T SH, CMP, LIPID ####[facility] Iiniqmxwfg[address] [place], [place] [address]Dr. Ricardo Rocha UA RANDOM W/MICROSCOPICon BACTERIA NONE SEEN Normal NONE SEEN [facility] Comment on above: Performed By: #### U AMIC ####[facility] Ertw[address] [place], [place] [address]Dr. Ricardo Rocha Bilirubin Ql (U) Negative Normal NEGATIVE [facility] Comment on above: Performed By: #### U AMIC ####[facility] [address]zqjeqat[address] [place], [place] [address]Dr. Ricardo Rocha CAST NONE SEEN Normal NONE SEEN [facility] Comment on above: Performed By: #### U AMIC ####[facility] Lehfnbyoqj[address] [place], [place] [address]Dr. Ricardo Rocha Clarity (U) CLEAR Normal CLEAR [facility] Comment on above: Performed By: #### U AMIC ####[facility] Upileptfnp[address] [place], [place] [address]Dr. Ricardo Rocha Color (U) LT. YELLOW Normal YELLOW [facility] Comment on above: Performed By: #### U AMIC ####[facility] [address]wopgcbgi[address] [place], [place] [address]Dr. Ricardo Rocha Crystals LM Nom (Urine sed) NONE SEEN Normal NONE SEEN [facility] Comment on above: Performed By: #### U AMIC ####[facility] Ugjplhqivr[address] [place], [place] [address]Dr. Ricardo Rocha Epithelial cells LM Ql (Urine sed) NONE SEEN Normal NONE SEEN /RARE [facility] Comment on above: Performed By: #### U AMIC ####[facility] Bufenubwdk8[address] [place], [place] [address]Dr. Ricardo Rocha Glucose Ql (U) Negative Normal NEGATIVE [facility] Comment on above: Performed By: #### U AMIC ####[facility] C[address]ffuhxsbn454[address] [place], [place] [address]Dr. Ricardo Aj Hemoglobin Ql (U) Negative Normal NEGATIVE [facility] Comment on above: Performed By: #### U AMIC ####[facility] Tipfdksjlv3[address] [place] [address]Dr. Ricardo Rocha Ketones Ql (U) Negative Normal NEGATIVE [facility] Comment on above: Performed By: #### U AMIC ####[facility] Xwvfttlrrt7473 [place] [address]Dr. Nanomarcial Rocha LEUKOCYTES Negative Normal NEGATIVE [facility] Comment on above: Performed By: #### U AMIC ####[facility] Dstedfapjh[address] [place], [place] [address]Dr. Nanomarcial Rocha MUCOUS NONE SEEN Normal NONE SEEN [facility] Comment on above: Performed By: #### U AMIC ####[facility] Eqedlsqmiw[address] [place], [place] [address]Dr. Nanomarcial Rocha Nitrite Ql (U) Negative Normal NEGATIVE [facility] Comment on above: Performed By: #### U AMIC ####[facility] S[address]lqxqiu[address] [place], [place] [address]Dr. Ricardo Aj pH (U) 5.5 [pH] Normal 5-9 [facility] Comment on above: Performed By: #### U AMIC ####[facility] Bsnvbdmegx[address] [place], [place] [address]Dr. Nanomarcial Aj RBC NONE SEEN Abnormal 0-2 [facility] Comment on above: Performed By: #### U AMIC ####[facility] Yxonocgflz[address] [place], [place] [address]Dr. Ricardo Rocha SPEC GRAVITY 1.020 Normal 1.005-<=1.02 5 [facility] Comment on above: Performed By: #### U AMIC ####[facility] [address]ioeqqapr[address] [place], [place] [address]Dr. Ricardo Rocha UA PROTEIN Negative Normal NEGATIVE/ TRACE [facility] Comment on above: Performed By: #### U AMIC ####[facility] Qtjskshqlm[address] [place], [place] [address]Dr. Ricardo Rocha Urobilinogen Qn (U) 0.2 {Madeleine'U}/dL Normal 0.2 - 1. 0 [facility] Comment on above: Performed By: #### U AMIC ####[facility] Rtkcznqevk[address] [place] [address]Dr. Ricardo Rocha WBC NONE SEEN Normal NONE SEEN [facility] Comment on above: Performed By: #### U AMIC ####[facility] Hmhthkpulj[address] [place] [address]Dr. Ricardo Aj CBC W MANUAL DIFFon 06-16-20 22 ATYPICAL LYMPH # Normal [facility] Comment on above: Performed By: #### C BCMAN ####[facility] Wuxpgddnuc6163 [place] [address]Dr. Ricardo Rocha ATYPICAL LYMPH % Normal [facility] Comment on above: Performed By: #### C BCMAN ####[facility] K[address]grvllhaz[address] [place], [place] [address]Dr. Ricardo Rocha BAND # 0.2 103/ul Normal 0.0-0.3 [facility] Comment on above: Performed By: #### C BCMAN ####[facility] [address]mvqjw[address] [place], [place] [address]Dr. Nanomarcial Rocha BAND % 2 % Normal 0-5 [facility] Comment on above: Performed By: #### C BCMAN ####[facility] Xmsweeozye[address] [place], [place] [address]Dr. Nanomarcial Rocha BASOM # 0.00 103/ul Normal 0.00-0.10 [facility] Comment on above: Performed By: #### C BCMAN ####[facility] Rvvdmivfpl2937 [place] [address]Dr. Nanomarcial Rocha BASOM % 0.0 % Critically low 0.2-2.0 [facility] Comment on above: Performed By: #### C BCMAN ####[facility] [address]apttthllm[address] [place], [place] [address]Dr. Ricardo Rocha BLAST # Normal [facility] Comment on above: Performed By: #### C BCMAN ####[facility] Korpifdhtb[address]123 [place] [id number]. Ricardo Rocha BLAST % Normal [facility] Comment on above: Performed By: #### C BCRED ####[facility] Kgktnssbiv2087 [place] [id number]. Ricardo Rocha CORRECTED WBC Normal 4.0-11.0 [facility] [place] Comment on above: Performed By: #### C BCRED ####[facility] Urftyqeeyq7694 [place] [phone]. Ricardo Rocha EOS # 0.11 103/ul Normal 0.00-0.70 [facility] Comment on above: Performed By: #### C BCRED ####[facility] Yqnmzmtson[address] [place], [place] [address]Dr. Ricardo Rocha EOS% 1.0 % Normal 0.9-7.0 [facility] Comment on above: Performed By: #### C DWAINE ####[facility] [address]iepkti[address] [place], [place] [address]Dr. Ricardo Rocha HCT 24.2 % Critically low 36.0-48.0 [facility] Comment on above: Performed By: #### C DWAINE ####[facility] Nqeooqcml[address] [place], [place] [id number]. Ricardo Rocha HGB 7.9 g/dl Critically low 12.0-16.0 [facility] Comment on above: Performed By: #### C DWAINE ####[facility] Qfkqqsraxu[address] [place], [place] [address]Dr. Ricardo Rocha LYMPHM # 1.81 103/ul Normal 1.20-3.80 [facility] Comment on above: Performed By: #### C BCRED ####[facility] Enpgtusism[address] [place], [place] [address]Dr. Ricardo Rocha LYMPHM% 16.0 % Critically low 20.5-60.0 [facility] Comment on above: Performed By: #### C BCRED ####[facility] Gjwwogumhn[address] [place], [place] [address]Dr. Ricardo Rocha MCH 25.2 pg Critically low 26.7-34.0 [facility] Comment on above: Performed By: #### C DWAINE ####[facility] Fssejldhtj75[address] [place] [id number]. Ricardo Rocha MCHC 32.6 g/dl Normal 29.9-35.2 [facility] Comment on above: Performed By: #### C DWAINE ####[facility] Nrurqaqamb7427 [place] [id number]. Ricardo Rocha MCV 77.3 fL Critically low 81.0-99.0 [facility] Comment on above: Performed By: #### C DWAINE ####[facility] Itslfuofbe2452 [place] [id number]. Ricardo Rocha METAMYELOCYTE # 0.5 103/ul Normal [facility] Comment on above: Performed By: #### C DWAINE ####[facility] Avobbwkptz4778 [place] [id number]. Ricardo Rocha METAMYELOCYTE % 4 % Normal [facility] Comment on above: Performed By: #### C DWAINE ####[facility] Tilmfjgsye9098 [place] [phone]. Ricardo Rocha MONOM# 0.45 103/ul Normal 0.30-0.80 [facility] Comment on above: Performed By: #### C DWAINE ####[facility] Jgonloyuzf2558 [place] [address]Dr. Ricardo Rocha MONOM% 4.0 % Normal 1.7-12.0 [facility] Comment on above: Performed By: #### C DWAINE ####[facility] Zmhkpmyjlw0118 [place] [id number]. Ricardo Rocha MPV 10.4 fL Normal 9.5-13.5 [facility] Comment on above: Performed By: #### C DWAINE ####[facility] Sqxekueais147[address] [place], [place] [address]Dr. Ricardo Rocha MYELOCYTE # 0.5 103/ul Normal [facility] Comment on above: Performed By: #### Esteban ISIDRO ####[facility] Npiuhaxxdj[address] [place], [place] [address]Dr. Ricardo Rocha MYELOCYTE % 4 % Normal [facility] Comment on above: Performed By: #### C DWAINE ####[facility] Djmasunfte3567 [place], [place] [address]Fa. Ricardo Rocha NRBC Normal [facility] Comment on above: Performed By: #### C DWAINE ####[facility] Meboaptpeo3033 [place], [place] [address]Lx. Ricardo Rocha PLT 325 103/ul Normal 150-450 [facility] Comment on above: Performed By: #### C DWAINE ####[facility] Xzyzjnkjye4167 [place], [place] [address]Tm. Ricardo Rocha RBC 3.13 106/ul Critically low 4.20-5.40 [facility] Comment on above: Performed By: #### C DWAINE ####[facility] Nwnszdhucs7147 [place] [id number]. Ricardo Rocha RDW 13.7 % Normal 11.0-15.0 [facility] Comment on above: Performed By: #### C DWAINE ####[facility] Fbgouvkoqh1402 [place] [id number]. Ricardo Rocha SEG # 7.80 103/ul Critically high 1.40-6.50 [facility] Comment on above: Performed By: #### C DWAINE ####[facility] Tdvuocmijl9384 [place] [id number]. Ricardo Rocha SEG % 69.0 % Normal 43.0-75.0 [facility] Comment on above: Performed By: #### C DWAINE ####[facility] Busgfwzfvy8979 [place], [place] [address]Sr. Ricardo Rocha WBC 11.3 103/ul Critically high 4.0-11.0 [facility] Comment on above: Performed By: #### C DWAINE ####[facility] Dsxypicbzk1851 [place] [phone]. Ricardo Rocha PROF 14(COMP METB)on 022 Albumin [Mass/Vol] 1.7 g/dL Critically low 3.4-5.0 [facility] Comment on above: Performed By: #### C MP ####[facility] Lxkuqdmkbh5708 [place] [address]Dr. Ricardo Rocha Albumin/Globulin [Mass ratio] 0.4 {ratio} Normal [facility] Comment on above: Performed By: #### C MP ####[facility] Adadlwgkhb8629 [place] [address]Dr. Ricardo Rocha ALP [Catalytic activity/Vol] 174 U/L Critically high 46-116 [facility] Comment on above: Performed By: #### C MP ####[facility] Amfgevyrgf217[address] [place], [place] [address]Dr. Ricardo Rocha ALT [Catalytic activity/Vol] 14 U/L Normal 14-59 [facility] Comment on above: Performed By: #### C MP ####[facility] Wrmncfebxi18[address] [place], [place] [address]Dr. Ricardo Rocha Anion gap [Moles/Vol] 10.8 mmol/L Normal [facility] Comment on above: Performed By: #### C MP ####[facility] Amsspfecql13[address] [place], [place] [address]Dr. Nanomarcial Rocha AST [Catalytic activity/Vol] 13 U/L Critically low 15-37 [facility] Comment on above: Performed By: #### C MP ####[facility] Vraqexcire[address] [place], [place] [address]Dr. Ricardo Rocha Bilirubin [Mass/Vol] 0.3 mg/dL Normal 0.2-1.0 [facility] Comment on above: Performed By: #### C MP ####[facility] Moosycgyst[address] [place], [place] [address]Dr. Ricardo Rocha Calcium [Mass/Vol] 8.2 mg/dL Critically low 8.5-10.1 [facility] Comment on above: Performed By: #### C MP ####[facility] Kbbkmeiyeo[address] [place], [place] [address]Dr. Ricardo Rocha Chloride [Moles/Vol] 104 mmol/L Normal 98-107 [facility] Comment on above: Performed By: #### C MP ####[facility] Bftlegqbau9846 [place] [address]Dr. Ricardo Rocha CO2 [Moles/Vol] 22.4 mmol/L Normal 21.0-32.0 [facility] Comment on above: Performed By: #### C MP ####[facility] Rzkhkvltpu9755 [place] [phone]. Ricardo Rocha Creatinine [Mass/Vol] 1.29 mg/dL Critically high 0.55-1.02 [facility] Comment on above: Performed By: #### C MP ####[facility] Sadfmmfbdw6716 [place] [phone]. Ricardo Rocha EGFR-AF ISRAELI 50 mL/min/1.73m2 Critically low >=60 [facility] Comment on above: Performed By: #### C MP ####[facility] Ejiqzaioop6489 [place] [address]Dr. Ricardo Rocha EGFR-NON AF ISRAELI 42 mL/min/1.73m2 Critically low >=60 [facility] Comment on above: Performed By: #### C MP ####[facility] Ukbxqttbox7191 [place] [address]Dr. Ricardo Rocha Globulin (S) [Mass/Vol] 4.8 g/dL Normal [facility] Comment on above: Performed By: #### C MP ####[facility] Bftrshbfqz9682 [place] [address]Dr. Ricardo Rocha Glucose [Mass/Vol] 262 mg/dL Critically high 74-106 [facility] Comment on above: Performed By: #### C MP ####[facility] Rpytrdsiiy4992 [place] [phone]. Ricardo Rocha Potassium [Moles/Vol] 3.2 mmol/L Critically low 3.5-5.1 [facility] Comment on above: Performed By: #### C MP ####[facility] Oqdycrmyiv4755 [place] [phone]. Ricardo Rocha Protein [Mass/Vol] 6.5 g/dL Normal 6.4-8.2 [facility] Comment on above: Performed By: #### C MP ####[facility] Gxxceokcuo6754 [place] [address]Dr. Ricardo Rocha Sodium [Moles/Vol] 134 mmol/L Critically low 136-145 [facility] Comment on above: Performed By: #### C MP ####[facility] Vjelxyuxdp480[address] [place], [place] [address]Dr. Ricardo Rocha Urea nitrogen [Mass/Vol] 20.0 mg/dL Critically high 7.0-18.0 [facility] Comment on above: Performed By: #### C MP ####[facility] Sztpwvbjfv[address] [place], [place] [address]Dr. Ricardo Rocha Urea nitrogen/Creatinine [Mass ratio] 15.5 mg/mg Normal [facility] Comment on above: Performed By: #### C MP ####[facility] Xumchzrwcc701[address] [place], [place] [address]Dr. Ricardo Rocha CBC AUTO DIFFon 06-15-2022 BASO # 0.1 103/ul Normal 0.0-0.1 [facility] Comment on above: Performed By: #### C BC ####[facility] Diuiuiqfyg334[address] [place], [place] [address]Dr. Ricardo Aj Basophils/100 WBC (Bld) 0.7 % Normal 0.2-2.0 [facility] Comment on above: Performed By: #### C BC ####[facility] Dntwlydwnf[address] [place], [place] [address]Dr. Ricardo Rocha EO # 0.1 103/ul Normal 0.0-0.7 [facility] Comment on above: Performed By: #### C BC ####[facility] Hzdhnjwriw447[address] [place], [place] [address]Dr. Ricardo Aj Eosinophils/100 WBC (Bld) 0.7 % Critically low 0.9-7.0 [facility] Comment on above: Performed By: #### C BC ####[facility] Vhcsxvajkk38[address] [place], [place] [address]Dr. Ricardo Rocha Erythrocyte distribution width (RBC) [Ratio] 13.7 % Normal 11.0-15.0 [facility] Comment on above: Performed By: #### C BC ####[facility] Sxfmjkonvk2588 [place] [address]Dr. Ricardo Rocha Hematocrit (Bld) [Volume fraction] 26.7 % Critically low 36.0-48.0 [facility] Comment on above: Performed By: #### C BC ####[facility] Ubopxogucf5885 [place] [address]Dr. Ricardo Rocha Hemoglobin (Bld) [Mass/Vol] 8.4 g/dL Critically low 12.0-16.0 [facility] Comment on above: Performed By: #### C BC ####[facility] Vqmealgikd[address] [place], [place] [address]DrIrina Rocha IG # 0.83 10e3/ul Critically high 0.00-0.03 [facility] Comment on above: Performed By: #### C BC ####[facility] Osqqxsxtvz[address] [place], [place] [address]Dr. Ricardo Rocha IG % 6.2 % Critically high 0.0-0.5 [facility] Comment on above: Performed By: #### C BC ####[facility] Wzvnhzooij60[address] [place], [place] [address]DrIrina Rocha LYMPH # 1.3 103/ul Normal 1.2-3.8 [facility] Comment on above: Performed By: #### C BC ####[facility] Qslwvewbjp07[address] [place], [place] [address]DrIrina Rocha Lymphocytes/100 WBC (Bld) 9.6 % Critically low 20.5-60.0 [facility] Comment on above: Performed By: #### C BC ####[facility] Lknlgkvziq[address] [place], [place] [address]DrIrina Rocha MANUAL DIFF REQ NO Normal [facility] Comment on above: Performed By: #### C BC ####[facility] Lkqljnuena5171 [place] [address]DrIrina Rocha MCH (RBC) [Entitic mass] 25.1 pg Critically low 26.7-34.0 [facility] Comment on above: Performed By: #### C BC ####[facility] Dayxvrsife2616 [place] [address]DrIrina Rocha MCHC (RBC) [Mass/Vol] 31.5 g/dL Normal 29.9-35.2 [facility] Comment on above: Performed By: #### C BC ####[facility] Ysamlyebqh0676 [place] [address]DrIrina Rocha MCV (RBC) [Entitic vol] 79.7 fL Critically low 81.0-99.0 [facility] Comment on above: Performed By: #### C BC ####[facility] Pecqfqicye[address] [place], [place] [address]Dr. Ricardo Rocha MONO # 1.0 103/ul Critically high 0.3-0.8 [facility] Comment on above: Performed By: #### C BC ####[facility] Ebaabzqqrs[address] [place], [place] [address]DrIrina Rocha Monocytes/100 WBC (Bld) 7.3 % Normal 1.7-12.0 [facility] Comment on above: Performed By: #### C BC ####[facility] Liritytpsz[address] [place], [place] [address]DrIrina Rocha NEUT # 10.2 103/ul Critically high 1.4-6.5 [facility] Comment on above: Performed By: #### C BC ####[facility] Wdsuydcsyg[address] [place], [place] [address]DrIrina Rocha Neutrophils/100 WBC (Bld) 75.5 % Critically high 43.0-75.0 [facility] Comment on above: Performed By: #### C BC ####[facility] [address]svuyftdvx[address] [place], [place] [address]DrIrina Rocha Platelet mean volume (Bld) [Entitic vol] 11.8 fL Normal 9.5-13.5 [facility] Comment on above: Performed By: #### C BC ####[facility] [address]churjcnrd[address] [place], [place] [address]DrIrina Rocha PLT 208 103/ul Normal 150-450 [facility] Comment on above: Performed By: #### C BC ####[facility] Mwrsblqdqs3320 [place], [place] [address]Ml. Ricardo Rocha RBC 3.35 106/ul Critically low 4.20-5.40 [facility] Comment on above: Performed By: #### C BC ####[facility] Jmyemwrgtv2492 [place], [place] [address]Sa. Ricardo Rocha WBC 13.5 103/ul Critically high 4.0-11.0 [facility] Comment on above: Performed By: #### C BC ####[facility] Yiizgnszrm7625 [place], [place] [address]Ny. Ricardo Rocha CULTURE BLOODon 06-15-2022 Microscopic examination of blood, culture Culture Observations: NO GROWTH AT 5 DAYS Normal [facility] Comment on above: Performed By: #### B LDCX2 ####[facility] Fkvkosxtgg5228 [place], [place] [address]Nq. Ricardo Rocha Microscopic examination of blood, culture Culture Observations: NO GROWTH AT 5 DAYS Normal [facility] Comment on above: Performed By: #### B LDCX1 ####[facility] Ezcfijcwwl0386 [place], [place] [address]Ud. Ricardo Rocha Covid-19 PCR (CVDTB)on 05-22 SARS-CoV-2 (COVID-19) RNA ADRIEL+probe Ql (Unsp spec) Not detected Normal NOT DETECTED [facility] Comment on above: Result Comment: When diagnostic [...] this test is supported by the Supervisor [place] of Health and Human Service's declaration that [...] be used). Performed By: #### C VDTBH ####[facility] Nxjjyhvnxm1060 [place] [address]Dr. Ricardo Rocha POINT OF CARE GLUCOSEon 05-22 Glucose [Mass/Vol] 366 mg/dL Critically high 74-106 [facility] Comment on above: Performed By: #### P OCGLUC ####[facility] Rpxrwxvxtd3774 [place] [address]Dr. Ricardo Rocha Glucose [Mass/Vol] 229 mg/dL Critically high 74-106 [facility] Comment on above: Performed By: #### P OCGLUC ####[facility] Ekxdxaavfj[address] [place], [place] [address]Dr. Ricardo Rocha Glucose [Mass/Vol] 258 mg/dL Critically high 74-106 [facility] Comment on above: Performed By: #### P OCGLUC ####[facility] Qawekgjjiu4882 [place] [address]Dr. Ricardo Rocha PROF 14(COMP METB)on 022 Albumin [Mass/Vol] 1.8 g/dL Critically low 3.4-5.0 [facility] Comment on above: Performed By: #### C MP ####[facility] Onsngprjwk1657 [place] [address]Dr. Ricardo Rocha Albumin/Globulin [Mass ratio] 0.4 {ratio} Normal [facility] Comment on above: Performed By: #### C MP ####[facility] Cbvpofpbas1235 [place] [address]Dr. Ricardo Rocha ALP [Catalytic activity/Vol] 196 U/L Critically high 46-116 [facility] Comment on above: Performed By: #### C MP ####[facility] Kuviyrtaff3972 [place] [address]Dr. Ricardo Rocha ALT [Catalytic activity/Vol] 18 U/L Normal 14-59 [facility] Comment on above: Performed By: #### C MP ####[facility] Ywknhyocks6923 [place] [id number]. Ricardo Rocha Anion gap [Moles/Vol] 16.3 mmol/L Normal [facility] Comment on above: Performed By: #### C MP ####[facility] Wrlqdeqfob3033 [place] [id number]. Ricardo Aj AST [Catalytic activity/Vol] 22 U/L Normal 15-37 [facility] Comment on above: Performed By: #### C MP ####[facility] Basxstqkes8238 [place] [id number]. Ricardo Aj Bilirubin [Mass/Vol] 0.4 mg/dL Normal 0.2-1.0 [facility] Comment on above: Performed By: #### C MP ####[facility] Bmofqmktdk1951 [place] [address]Dr. Ricardo Rocha Calcium [Mass/Vol] 8.2 mg/dL Critically low 8.5-10.1 [facility] Comment on above: Performed By: #### C MP ####[facility] Amkhksjgrz7683 [place] [address]Dr. Nanomarcial Rocha Chloride [Moles/Vol] 103 mmol/L Normal 98-107 [facility] Comment on above: Performed By: #### C MP ####[facility] Zyqikmopmc3065 [place] [id number]. Nanomarcial Aj CO2 [Moles/Vol] 19.0 mmol/L Critically low 21.0-32.0 [facility] Comment on above: Performed By: #### C MP ####[facility] Msjfcibcdi3786 [place] [id number]. Ricardo Aj Creatinine [Mass/Vol] 1.32 mg/dL Critically high 0.55-1.02 [facility] Comment on above: Performed By: #### C MP ####[facility] Vcmzjushob2018 [place] [phone]. Nanomarcial Aj EGFR-AF ISRAELI 49 mL/min/1.73m2 Critically low >=60 [facility] Comment on above: Performed By: #### C MP ####[facility] Jnxrnfppgp3808 [place] [id number]. Ricardo Rocha EGFR-NON AF ISRAELI 41 mL/min/1.73m2 Critically low >=60 [facility] Comment on above: Performed By: #### C MP ####[facility] Vznlhihxaj1832 [place] [id number]. Ricardo Rocha Globulin (S) [Mass/Vol] 5.0 g/dL Normal [facility] Comment on above: Performed By: #### C MP ####[facility] Hnsjwuhynr2204 [place] [phone]. Ricardo Rocha Glucose [Mass/Vol] 228 mg/dL Critically high 74-106 [facility] Comment on above: Performed By: #### C MP ####[facility] Feylhuxhbk1739 [place] [phone]. Ricardo Aj Potassium [Moles/Vol] 3.3 mmol/L Critically low 3.5-5.1 [facility] Comment on above: Performed By: #### C MP ####[facility] Kwecmajagj0776 [place] [phone]. Ricardo Rocha Protein [Mass/Vol] 6.8 g/dL Normal 6.4-8.2 [facility] Comment on above: Performed By: #### C MP ####[facility] Clfthhygxq9511 [place] [phone]. Ricardo Rocha Sodium [Moles/Vol] 135 mmol/L Critically low 136-145 [facility] Comment on above: Performed By: #### C MP ####[facility] Vjpdtpkooz1309 [place] [phone]. Ricardo Aj Urea nitrogen [Mass/Vol] 23.0 mg/dL Critically high 7.0-18.0 [facility] Comment on above: Performed By: #### C MP ####[facility] Lbrpuyvabp2260 [place] [phone]. Ricardo Aj Urea nitrogen/Creatinine [Mass ratio] 17.4 mg/mg Normal [facility] Comment on above: Performed By: #### C MP ####[facility] Vhcoinxduq1167 [place] [address]Dr. 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 Nanomarcial Rocha Clarity (U) CLEAR Normal CLEAR [facility] Comment on above: Performed By: #### U MICRO, UACSIND ####[facility] Jjrokpmloa5125 [place] [address]Dr. Nanomarcial Rocha Color (U) LT. YELLOW Normal YELLOW [facility] Comment on above: Performed By: #### U MICRO, UACSIND ####[facility] [address]ddfihtdf[address] [place], [place] [address]Dr. Ricardo Rocha Glucose Ql (U) 250 mg/dl Abnormal NEGATIVE [facility] Comment on above: Performed By: #### U MICRO, UACSIND ####[facility] Wsrqjlwurn[address] [place], [place] [address]Dr. Ricardo Rocha Hemoglobin Ql (U) TRACE-LYSED Abnormal NEGATIVE [facility] Comment on above: Performed By: #### U MICRO, UACSIND ####[facility] [address]mivfwryw[address] [place], [place] [address]Dr. Ricardo Rocha Ketones Ql (U) 15 mg/dl Abnormal NEGATIVE [facility] Comment on above: Performed By: #### U MICRO, UACSIND ####[facility] Mpngidirid7436 [place] [address]Dr. Ricardo Rocha LEUKOCYTES Negative Normal NEGATIVE [facility] Comment on above: Performed By: #### U MICRO, UACSIND ####[facility] Yvmwnodtpk1804 [place] [address]Dr. Ricardo Rocha Nitrite Ql (U) Negative Normal NEGATIVE [facility] Comment on above: Performed By: #### U MICRO, UACSIND ####[facility] Pfkvtxdvmz5273 [place] [address]Dr. Ricardo Rocha pH (U) 6.0 [pH] Normal 5-9 [facility] Comment on above: Performed By: #### U MICRO, UACSIND ####[facility] Fnulyrwrzg9332 [place] [address]Dr. Nanomarcial Rocha SPEC GRAVITY 1.010 Normal 1.005-<=1.02 5 [facility] Comment on above: Performed By: #### U MICRO, UACSIND ####[facility] Cmdzioaufl7565 [place] [address]Dr. Ricardo Rocha UA PROTEIN Negative Normal NEGATIVE/ TRACE [facility] Comment on above: Performed By: #### U MICRO, UACSIND ####[facility] Ucgmmtrtzb4982 [place] [address]Dr. Ricardo Rocha UR MICRO IND INDICATED Normal [facility] Comment on above: Performed By: #### U MICRO, UACSIND ####[facility] Nsobvolpwi5396 [place] [address]Dr. Ricardo Rocha Urobilinogen Qn (U) 0.2 {Madeleine'U}/dL Normal 0.2 - 1. 0 [facility] Comment on above: Performed By: #### U MICRO, UACSIND ####[facility] Yanedixvcf[address] [place], [place] [address]Dr. Ricardo Rocha URINE MICROSCOPIC ONLYon BACTERIA NONE SEEN Normal NONE SEEN [facility] Comment on above: Performed By: #### U MICRO, UACSIND ####[facility] Clvckxpkwj4311 [place] [address]Dr. Ricardo Rocha Bacteria identified Cx Nom (U) NOT INDICATED Normal [facility] Comment on above: Performed By: #### U MICRO, UACSIND ####[facility] Qvioypnros[address] [place], [place] [address]Dr. Ricardo Rocha CAST NONE SEEN Normal NONE SEEN [facility] Comment on above: Performed By: #### U MICRO, UACSIND ####[facility] Twmglswfxl[address] [place], [place] [address]Dr. Ricardo Rocha Crystals LM Nom (Urine sed) NONE SEEN Normal NONE SEEN [facility] Comment on above: Performed By: #### U MICRO, UACSIND ####[facility] Jkjsrtngdy5080 [place] [address]Dr. Ricardo Rocha Epithelial cells LM Ql (Urine sed) FEW Abnormal NONE SEEN /RARE [facility] Comment on above: Performed By: #### U MICRO, UACSIND ####[facility] Aqhucopodr9886 [place] [address]Dr. Ricardo Rocha MUCOUS NONE SEEN Normal NONE SEEN [facility] Comment on above: Performed By: #### U MICRO, UACSIND ####[facility] [address]ipwpgal[address] [place] [address]Dr. Ricardo Rocha RBC 2-5 Abnormal 0-2 [facility] Comment on above: Performed By: #### U MICRO, UACSIND ####[facility] Nwzpkgqkpv[address] [place] [address]Dr. Ricardo Rocha WBC 2-5 Abnormal NONE SEEN [facility] Comment on above: Performed By: #### U MICRO, UACSIND ####[facility] Snxsjlncff87[address] [place] [address]Dr. Ricardo Rocha YEAST PRESENT Abnormal NONE SEEN The [facility] Comment on above: Performed By: #### U MICRO, UACSIND ####[facility] Pntozmnypg[address] [place] [address]Dr. Ricardo Rocha CBC AUTO DIFFon 06-14-2022 BASO # 0.0 103/ul Normal 0.0-0.1 [facility] Comment on above: Performed By: #### C BC ####[facility] Gtkjguvups[address] [place] [address]Dr. Ricardo Rocha Basophils/100 WBC (Bld) 0.4 % Normal 0.2-2.0 [facility] Comment on above: Performed By: #### C BC ####[facility] Tiuhwrftni4[address] [place] [address]Dr. Ricardo Rocha EO # 0.0 103/ul Normal 0.0-0.7 [facility] Comment on above: Performed By: #### C BC ####[facility] Vocacgujuk[address] [place] [id number]. Ricardo Rocha Eosinophils/100 WBC (Bld) 0.4 % Critically low 0.9-7.0 [facility] Comment on above: Performed By: #### C BC ####[facility] Nyttknxoug4[address] [place] [address]Dr. Ricardo Rocha Erythrocyte distribution width (RBC) [Ratio] 13.8 % Normal 11.0-15.0 [facility] Comment on above: Performed By: #### C BC ####[facility] Stihniwxuh14[address] [place] [address]Dr. Ricardo Rocha Hematocrit (Bld) [Volume fraction] 26.2 % Critically low 36.0-48.0 [facility] Comment on above: Performed By: #### C BC ####[facility] Gjinaienst[address] [place], [place] [address]Dr. Ricardo Rocha Hemoglobin (Bld) [Mass/Vol] 8.3 g/dL Critically low 12.0-16.0 [facility] Comment on above: Performed By: #### C BC ####[facility] Mtdpygdjef[address] [place], [place] [address]Dr. Ricardo Rocha IG # 0.24 10e3/ul Critically high 0.00-0.03 [facility] Comment on above: Performed By: #### C BC ####[facility] Exvgmhlwkp[address] [place], [place] [address]Dr. Ricardo Rocha IG % 2.3 % Critically high 0.0-0.5 [facility] Comment on above: Performed By: #### C BC ####[facility] Muwierdypq[address] [place], [place] [address]DrIrina Ricardo Rocha LYMPH # 1.1 103/ul Critically low 1.2-3.8 [facility] Comment on above: Performed By: #### C BC ####[facility] Oyzjapkejv[address] [place], [place] [address]Dr. Ricardo Rocha Lymphocytes/100 WBC (Bld) 10.2 % Critically low 20.5-60.0 [facility] Comment on above: Performed By: #### C BC ####[facility] Dnjsfetfmw[address] [place] [address]DrIrina Rocha MANUAL DIFF REQ NO Normal [facility] Comment on above: Performed By: #### C BC ####[facility] Xftywddktq1441 [place] [address]Dr. Ricardo Rocha MCH (RBC) [Entitic mass] 25.5 pg Critically low 26.7-34.0 [facility] Comment on above: Performed By: #### C BC ####[facility] Yiplatnhle0291 [place] [address]Dr. Ricardo Rocha MCHC (RBC) [Mass/Vol] 31.7 g/dL Normal 29.9-35.2 [facility] Comment on above: Performed By: #### C BC ####[facility] Dhtgeusvkl[address] [place], [place] [address]DrIrina Rocha MCV (RBC) [Entitic vol] 80.6 fL Critically low 81.0-99.0 [facility] Comment on above: Performed By: #### C BC ####[facility] Pajqwgfwyc225[address] [place], [place] [address]DrIrina Rocha MONO # 0.7 103/ul Normal 0.3-0.8 [facility] Comment on above: Performed By: #### C BC ####[facility] Zgmctaoecd955[address] [place], [place] [address]DrIrina Rocha Monocytes/100 WBC (Bld) 6.7 % Normal 1.7-12.0 [facility] Comment on above: Performed By: #### C BC ####[facility] Agsnyrcvwo20[address] [place], [place] [address]DrIrina Rocha NEUT # 8.5 103/ul Critically high 1.4-6.5 [facility] Comment on above: Performed By: #### C BC ####[facility] Jtixkqvtnj120[address] [place], [place] [address]DrIrina Rocha Neutrophils/100 WBC (Bld) 80.0 % Critically high 43.0-75.0 [facility] Comment on above: Performed By: #### C BC ####[facility] Nofykrgqfb7236 [place] [address]Dr. Ricardo Rocha Platelet mean volume (Bld) [Entitic vol] 12.1 fL Normal 9.5-13.5 [facility] Comment on above: Performed By: #### C BC ####[facility] Dimxcnbizf3193 [place] [address]Dr. Ricardo Rocha PLT 173 103/ul Normal 150-450 [facility] Comment on above: Performed By: #### C BC ####[facility] Ayfuuepjix[address] [place] [address]Dr. Ricardo Rocha RBC 3.25 106/ul Critically low 4.20-5.40 [facility] Comment on above: Performed By: #### C BC ####[facility] Hvlearqdww29[address] [place] [address]Dr. Ricardo Rocha WBC 10.6 103/ul Normal 4.0-11.0 [facility] Comment on above: Performed By: #### C BC ####[facility] Lidugebjth679[address] [place], [place] [address]Dr. Ricardo Rocha POINT OF CARE GLUCOSEon 05-22 Glucose [Mass/Vol] 237 mg/dL Critically high 74-106 [facility] Comment on above: Performed By: #### P OCGLUC ####[facility] Nhoxjnghbh2484 [place] [address]Dr. Ricardo Rocha Glucose [Mass/Vol] 296 mg/dL Critically high 74-106 [facility] Comment on above: Performed By: #### P OCGLUC ####[facility] Oajphbyhhe368[address] [place], [place] [address]Dr. Ricardo Rocha Glucose [Mass/Vol] 406 mg/dL Critically high 74-106 [facility] Comment on above: Performed By: #### P OCGLUC ####[facility] Kkwskjxolb610[address] [place], [place] [address]Dr. Ricardo Aj Glucose [Mass/Vol] 447 mg/dL Critically high 74-106 [facility] Comment on above: Performed By: #### P OCGLUC ####[facility] Jtzsbamduc184[address] [place], [place] [address]Dr. Ricardo Rocha Glucose [Mass/Vol] 319 mg/dL Critically high 74-106 [facility] Comment on above: Performed By: #### P OCGLUC ####[facility] Ejbrlropkz963[address] [place], [place] [address]Dr. Ricardo Rocha PROF 14(COMP METB)on 022 Albumin [Mass/Vol] 1.6 g/dL Critically low 3.4-5.0 [facility] Comment on above: Performed By: #### C MP ####[facility] Jxjjwbbtsy554[address] [place], [place] [address]Dr. Ricardo Rocha Albumin/Globulin [Mass ratio] 0.3 {ratio} Normal [facility] Comment on above: Performed By: #### C MP ####[facility] Lhxiquivvk65[address] [place], [place] [address]Dr. Ricardo Rocha ALP [Catalytic activity/Vol] 201 U/L Critically high 46-116 [facility] Comment on above: Performed By: #### C MP ####[facility] Gmldhxzyuq807[address] [place], [place] [address]Dr. Ricardo Rocha ALT [Catalytic activity/Vol] 23 U/L Normal 14-59 [facility] Comment on above: Performed By: #### C MP ####[facility] Bdxbztqnrp98[address] [place], [place] [address]Dr. Ricardo Rocha Anion gap [Moles/Vol] 16.0 mmol/L Normal [facility] Comment on above: Performed By: #### C MP ####[facility] Jqbqufxcwk9[address] [place], [place] [address]Dr. Ricardo Rocha AST [Catalytic activity/Vol] 21 U/L Normal 15-37 [facility] Comment on above: Performed By: #### C MP ####[facility] Umakaurtqf378[address] [place], [place] [address]Dr. Ricardo Rocha Bilirubin [Mass/Vol] 0.4 mg/dL Normal 0.2-1.0 [facility] Comment on above: Performed By: #### C MP ####[facility] Kuhyragdul955[address] [place], [place] [address]Dr. Ricardo Rocha Calcium [Mass/Vol] 7.6 mg/dL Critically low 8.5-10.1 Th e [facility] Comment on above: Performed By: #### C MP ####[facility] Qiosjgaygg214[address] [place], [place] [address]Dr. Ricardo Rocha Chloride [Moles/Vol] 105 mmol/L Normal 98-107 [facility] Comment on above: Performed By: #### C MP ####[facility] Yuzhlbudfy197[address] [place], [place] [address]Dr. Ricardo Rocha CO2 [Moles/Vol] 17.3 mmol/L Critically low 21.0-32.0 [facility] Comment on above: Performed By: #### C MP ####[facility] Qxpukgzcch236[address] [place], [place] [address]Dr. Ricardo Rocha Creatinine [Mass/Vol] 1.54 mg/dL Critically high 0.55-1.02 [facility] Comment on above: Performed By: #### C MP ####[facility] Jwxuhjlblm[address] [place], [place] [address]Dr. Ricardo Rocha EGFR-AF ISRAELI 41 mL/min/1.73m2 Critically low >=60 [facility] Comment on above: Performed By: #### C MP ####[facility] Prtdoscryz336[address] [place], [place] [address]Dr. Ricardo Rocha EGFR-NON AF ISRAELI 34 mL/min/1.73m2 Critically low >=60 [facility] Comment on above: Performed By: #### C MP ####[facility] Wnvoikkynb340[address] [place], [place] [address]Dr. Ricardo Rocha Globulin (S) [Mass/Vol] 4.7 g/dL Normal [facility] Comment on above: Performed By: #### C MP ####[facility] Zkgvwswavp[address] [place], [place] [address]Dr. Ricardo Rocha Glucose [Mass/Vol] 277 mg/dL Critically high 74-106 [facility] Comment on above: Performed By: #### C MP ####[facility] Vtihxpjmvy9018 [place] [address]Dr. Ricardo Rocha Potassium [Moles/Vol] 3.3 mmol/L Critically low 3.5-5.1 [facility] Comment on above: Performed By: #### C MP ####[facility] Hconodnjzy8[address] [place], [place] [address]Dr. Ricardo Rocha Protein [Mass/Vol] 6.3 g/dL Critically low 6.4-8.2 [facility] Comment on above: Performed By: #### C MP ####[facility] Wgpnbjqllt06[address] [place], [place] [address]Dr. Ricardo Rocha Sodium [Moles/Vol] 135 mmol/L Critically low 136-145 [facility] Comment on above: Performed By: #### C MP ####[facility] Lbhaytrdfy[address] [place], [place] [address]Dr. Ricardo Rocha Urea nitrogen [Mass/Vol] 29.0 mg/dL Critically high 7.0-18.0 [facility] Comment on above: Performed By: #### C MP ####[facility] Gvsvwufpxx[address] [place], [place] [address]Dr. Ricardo Rocha Urea nitrogen/Creatinine [Mass ratio] 18.8 mg/mg Normal [facility] Comment on above: Performed By: #### C MP ####[facility] Jeutsgxpei257[address] [place], [place] [address]Dr. Ricardo Aj CBC AUTO DIFFon 06-13-2022 BASO # 0.0 103/ul Normal 0.0-0.1 [facility] Comment on above: Performed By: #### C BC ####[facility] [address]nfcqqrgga[address] [place], [place] [address]Dr. Ricardo Aj Basophils/100 WBC (Bld) 0.2 % Normal 0.2-2.0 [facility] Comment on above: Performed By: #### C BC ####[facility] Uvjppgqooh[address] [place], [place] [address]Dr. Ricardo Rocha EO # 0.1 103/ul Normal 0.0-0.7 [facility] Comment on above: Performed By: #### C BC ####[facility] Cfiuijhdno5[address] [place] [address]Dr. Ricardo Rocha Eosinophils/100 WBC (Bld) 0.6 % Critically low 0.9-7.0 [facility] Comment on above: Performed By: #### C BC ####[facility] Tjwyblnnny9849 [place] [address]Dr. Ricardo Rocha Erythrocyte distribution width (RBC) [Ratio] 14.2 % Normal 11.0-15.0 [facility] Comment on above: Performed By: #### C BC ####[facility] Bxbkvlsvog7229 [place] [address]Dr. Ricardo Rocha Hematocrit (Bld) [Volume fraction] 27.9 % Critically low 36.0-48.0 [facility] Comment on above: Performed By: #### C BC ####[facility] Lqdtuemfst[address] [place], [place] [address]Dr. Ricardo Rocha Hemoglobin (Bld) [Mass/Vol] 8.6 g/dL Critically low 12.0-16.0 [facility] Comment on above: Performed By: #### C BC ####[facility] [address]aglesxsmr[address] [place], [place] [address]Dr. Ricardo Rocha IG # 0.08 10e3/ul Critically high 0.00-0.03 [facility] Comment on above: Performed By: #### C BC ####[facility] Adkjadgcmb75[address] [place] [address]Dr. Ricardo Rocha IG % 0.8 % Critically high 0.0-0.5 [facility] Comment on above: Performed By: #### C BC ####[facility] Pmeiqrjtmf3[address] [place] [address]Dr. Ricardo Rocha LYMPH # 0.9 103/ul Critically low 1.2-3.8 [facility] Comment on above: Performed By: #### C BC ####[facility] Amuviytohh6340 [place] [id number]. Ricardo Aj Lymphocytes/100 WBC (Bld) 8.9 % Critically low 20.5-60.0 [facility] Comment on above: Performed By: #### C BC ####[facility] Jcpsbvqtxf4861 [place] [address]Dr. Nanomarcial Rocha MANUAL DIFF REQ NO Normal [facility] Comment on above: Performed By: #### C BC ####[facility] Jnbmpwrzcb8847 [place] [address]Dr. Nanomarcial Rocha MCH (RBC) [Entitic mass] 25.1 pg Critically low 26.7-34.0 [facility] Comment on above: Performed By: #### C BC ####[facility] Kevqyqiyqj2643 [place] [address]Dr. Nanomarcial Rocha MCHC (RBC) [Mass/Vol] 30.8 g/dL Normal 29.9-35.2 [facility] Comment on above: Performed By: #### C BC ####[facility] Qgnqqipbaq0282 [place] [address]Dr. Ricardo Rocha MCV (RBC) [Entitic vol] 81.6 fL Normal 81.0-99.0 [facility] Comment on above: Performed By: #### C BC ####[facility] Ttnehjlhjc[address] [place], [place] [address]Dr. Ricardo Rocha MONO # 0.6 103/ul Normal 0.3-0.8 [facility] Comment on above: Performed By: #### C BC ####[facility] Cnuvmerjle5175 [place] [address]Dr. Nanomarcial Rocha Monocytes/100 WBC (Bld) 5.7 % Normal 1.7-12.0 [facility] Comment on above: Performed By: #### C BC ####[facility] Tywcrnkzfs5236 [place] [address]Dr. Ricardo Rocha NEUT # 8.4 103/ul Critically high 1.4-6.5 [facility] Comment on above: Performed By: #### C BC ####[facility] Lhpgtmoemn4376 [place] [id number]. Ricardo Rocha Neutrophils/100 WBC (Bld) 83.8 % Critically high 43.0-75.0 [facility] Comment on above: Performed By: #### C BC ####[facility] Udwwuchzta5797 [place] [id number]. Ricardo Rocha Platelet mean volume (Bld) [Entitic vol] 12.1 fL Normal 9.5-13.5 [facility] Comment on above: Performed By: #### C BC ####[facility] Hjjomicbhm2480 [place] [id number]. Ricardo Rocha PLT 149 103/ul Critically low 150-450 [facility] Comment on above: Performed By: #### C BC ####[facility] Brycnkydfw0408 [place] [id number]. Ricardo Rocha RBC 3.42 106/ul Critically low 4.20-5.40 [facility] Comment on above: Performed By: #### C BC ####[facility] Hiojnnvles6938 [place] [id number]. Ricardo Rocha WBC 10.0 103/ul Normal 4.0-11.0 [facility] Comment on above: Performed By: #### C BC ####[facility] Johkkuyhxc8176 [place] [id number]. Ricardo Rocha CULTURE OTHERon 06-13-2022 CULTURE OTHER Normal [facility] Comment on above: Performed By: #### O THCX ####[facility] Hlkptqlnmb4933 [place] [phone]. Ricardo Rocha CULTURE OTHER Normal [facility] Comment on above: Performed By: #### O THCX ####[facility] Lxcxnpe[address] [place], [place] [address]Dr. Ricardo Rocha CULTURE OTHER Normal [facility] Comment on above: Performed By: #### O THCX ####[facility] Gzawtjqgpl1314 [place] [address]Dr. Ricardo Rocha GI PANEL (PCR)on 06-13-2022 Adenovirus F 40/41 Not detected Normal NOT DETECTED [facility] Comment on above: Performed By: #### G IPANEL ####[facility] Yyikkhtfir[address] [place], [place] [address]Dr. Ricardo Rocha Astrovirus Not detected Normal NOT DETECTED [facility] Comment on above: Performed By: #### G IPANEL ####[facility] Qjnwmdijjw[address] [place], [place] [address]Dr. Ricardo Rocha C. Diff toxin A/B Not detected Normal NOT DETECTED [facility] Comment on above: Performed By: #### G IPANEL ####[facility] Xcwiacdupw[address] [place], [place] [address]Dr. Ricardo Rocha Campylobacter Not detected Normal NOT DETECTED [facility] Comment on above: Performed By: #### G IPANEL ####[facility] Dtehctvkwo203[address] [place], [place] [address]Dr. Ricardo Rocha Cryptosporidium Not detected Normal NOT DETECTED The [facility] Comment on above: Performed By: #### G IPANEL ####[facility] Clkneaosxi[address] [place], [place] [address]Dr. Ricardo Rocha Cyclos. Cayetanensis Not detected Normal NOT DETECTED [facility] Comment on above: Performed By: #### G IPANEL ####[facility] Uiktzyhbwy39[address] [place], [place] [address]Dr. Ricardo Rocha E. Coli O157 Not Applicable Normal Not Applicable [facility] Comment on above: Performed By: #### G IPANEL ####[facility] Wpylxlilmv74[address] [place], [place] [address]Dr. Ricardo Rocha E. histolytica Not detected Normal NOT DETECTED The [facility] Comment on above: Performed By: #### G IPANEL ####[facility] Qmfgizrqcj27[address] [place], [place] [address]Dr. Ricardo Rocha EAEC Not detected Normal NOT DETECTED [facility] Comment on above: Performed By: #### G IPANEL ####[facility] Dyrucxbnqn75[address] [place], [place] [address]Dr. Ricardo Rocha EIEC Not detected Normal NOT DETECTED [facility] Comment on above: Performed By: #### G IPANEL ####[facility] Wqyqvoapbe0503 [place] [address]Dr. Nanomarcial Rocha EPEC Not detected Normal NOT DETECTED [facility] Comment on above: Performed By: #### G IPANEL ####[facility] Ugvikljnpl084[address] [place], [place] [address]Dr. Ricardo Rocha ETEC Not detected Normal NOT DETECTED [facility] Comment on above: Performed By: #### G IPANEL ####[facility] Aryrzfluit547[address] [place], [place] [address]Dr. Nanomarcial Rocha G. Lamblia Not detected Normal NOT DETECTED [facility] Comment on above: Performed By: #### G IPANEL ####[facility] Rsgaoduifq860[address] [place], [place] [address]Dr. Ricardo CASASCOPPER [facility]ITALL CONTROLS PASSED Normal [facility] Comment on above: Performed By: #### G IPANEL ####[facility] Fywkhrcyuo8[address] [place], [place] [address]Dr. Ricardo Rocha [facility] HEADER GI PANEL BACTERIA Normal [facility] Comment on above: Performed By: #### G IPANEL ####[facility] Fdfnjpqsol[address] [place], [place] [address]Dr. Ricadro MARTINEZHD ECOLI GI PANEL DIARRHEAGEN IC E.COLI / SHIGELLA Normal [facility] Comment on above: Performed By: #### G IPANEL ####[facility] Ugcowomnlv[address] [place], [place] [address]Dr. Ricardo Rocha [facility]ITALNL[facility] INFO SEE BELOW Normal [facility] Comment on above: Result Comment: EAEC - Enteroaggregative E. Coli EPEC- Enteropathogenic E. Coli ETEC- Enterotoxigenic E. Coli lt/st STEC- Shigella-like toxin-producing E. Coli stx1/stx2 EIEC- Shigella/Enteroinvasive E. Coli Performed By: #### G IPANEL ####[facility] Qmfneaocku924[address] [place], [place] [address]Dr. Ricardo Rocha GIPNLHD PARASITES GI PANEL PARASITES Normal [facility] Comment on above: Performed By: #### G IPANEL ####[facility] Nymcajdhdo140[address] [place], [place] [address]Dr. Ricardo Rocha GIPNLHD VIRUS GI PANEL VIRUSES Normal The [facility] Comment on above: Performed By: #### G IPANEL ####[facility] Eiipggpksb[address] [place], [place] [address]Dr. Ricardo Rocha Norovirus GI/GII Not detected Normal NOT DETECTED [facility] Comment on above: Performed By: #### G IPANEL ####[facility] Xfxufafnaj9[address] [place], [place] [address]Dr. Ricardo Rocha P. Shigelloides Not detected Normal NOT DETECTED The [facility] Comment on above: Performed By: #### G IPANEL ####[facility] Ancppzmhma695[address] [place], [place] [address]Dr. Ricardo Rocha Rotavirus A Not detected Normal NOT DETECTED [facility] Comment on above: Performed By: #### G IPANEL ####[facility] Pyolimaspw200[address] [place], [place] [address]Dr. Ricardo Rocha Salmonella Not detected Normal NOT DETECTED [facility] Comment on above: Performed By: #### G IPANEL ####[facility] Icphlubdku[address] [place], [place] [address]Dr. Ricardo Rocha Sapovirus Not detected Normal NOT DETECTED [facility] Comment on above: Performed By: #### G IPANEL ####[facility] Daendjxfkh[address] [place], [place] [address]Dr. Ricardo Rocha STEC Not detected Normal NOT DETECTED [facility] Comment on above: Performed By: #### G IPANEL ####[facility] Lrxevrfked254[address] [place], [place] [address]Dr. Ricardo Rocha Vibrio Not detected Normal NOT DETECTED [facility] Comment on above: Performed By: #### G IPANEL ####[facility] Kbnlibipgw[address] [place], [place] [address]Dr. Ricardo Rocha Vibrio Cholera Not detected Normal NOT DETECTED The [facility] Comment on above: Performed By: #### G IPANEL ####[facility] [address]ucnprfpsz[address] [place] [address]Dr. Ricardo Rocha Y. Enterocolitica Not detected Normal NOT DETECTED [facility] Comment on above: Performed By: #### G IPANEL ####[facility] Asowyqdecn[address] [place] [address]Dr. Ricardo Rocha IRON AND TIBCon 06-13-2022 % SATURATION 19.9 % Normal [facility] Comment on above: Performed By: #### F ETIBC, B12FOL ####[facility] Dzhfkktzkl[address] [place] [address]Dr. Ricardo Rocha Iron [Mass/Vol] 75.0 ug/dL Normal 50.0-170.0 [facility] Comment on above: Performed By: #### F ETIBC, B12FOL ####[facility] Raerihmfmb[address] [place] [address]Dr. Ricardo Rocha TIBC DIRECT 376.0 ug/dL Normal 250.0-450.0 [facility] Comment on above: Performed By: #### F ETIBC, B12FOL ####[facility] Htdzoascyw84[address] [place] [address]Dr. Ricardo Rocha POINT OF CARE GLUCOSEon 05-22 Glucose [Mass/Vol] 238 mg/dL Critically high -[address] [place] [address] Comment on above: Performed By: #### P OCGLUC ####[facility] Faflnsurgu[address] [place], [place] [address]Dr. Ricardo Rocha Glucose [Mass/Vol] 146 mg/dL Critically high -[address] [place] [address] Comment on above: Performed By: #### P OCGLUC ####[facility] Uypidocozl[address] [place] [address]Dr. Ricardo Rocha Glucose [Mass/Vol] 143 mg/dL Critically high -[address] [place] [address] Comment on above: Performed By: #### P OCGLUC ####[facility] Hwzaakwrja34[address] [place] [address]Dr. Ricardo Rocha Glucose [Mass/Vol] 205 mg/dL Critically high -106 [facility] Comment on above: Performed By: #### P OCGLUC ####[facility] Bovdfnqaqb34[address] [place] [address]Dr. Nanomarcial Aj Glucose [Mass/Vol] 227 mg/dL Critically high 74-106 [facility] Comment on above: Performed By: #### P OCGLUC ####[facility] Bwowensqrh[address] [place] [address]Dr. Ricardo Rocha PROF 14(COMP METB)on 06-13- 022 Albumin [Mass/Vol] 1.5 g/dL Critically low 3.4-5.0 [facility] Comment on above: Performed By: #### C MP ####[facility] Xakhpyfkfm37[address] [place] [address]Dr. Ricardo Rocha Albumin/Globulin [Mass ratio] 0.3 {ratio} Normal [facility] Comment on above: Performed By: #### C MP ####[facility] Vvtuzqzynm[address] [place], [place] [address]Dr. Ricardo Rocha ALP [Catalytic activity/Vol] 136 U/L Critically high 46-116 [facility] Comment on above: Performed By: #### C MP ####[facility] Qghfirwrgd2908 [place] [address]Dr. Ricardo Rocha ALT [Catalytic activity/Vol] 18 U/L Normal 14-59 [facility] Comment on above: Performed By: #### C MP ####[facility] Lzhpsobnov85[address] [place] [address]Dr. Ricardo Rocha Anion gap [Moles/Vol] 10.2 mmol/L Normal [facility] Comment on above: Performed By: #### C MP ####[facility] Pavyhbebbr9858 [place] [address]Dr. Ricardo Rocha AST [Catalytic activity/Vol] 37 U/L Normal 15-37 [facility] Comment on above: Performed By: #### C MP ####[facility] Ytdqlpakcz2005 [place] [address]Dr. Ricardo Rocha Bilirubin [Mass/Vol] 0.4 mg/dL Normal 0.2-1.0 [facility] Comment on above: Performed By: #### C MP ####[facility] Kxsibpexko5675 [place] [phone]. Ricardo Rocha Calcium [Mass/Vol] 8.0 mg/dL Critically low 8.5-10.1 [facility] Comment on above: Performed By: #### C MP ####[facility] Azhgdxdmdz0512 [place] [phone]. Ricardo Rocha Chloride [Moles/Vol] 110 mmol/L Critically high 98-107 [facility] Comment on above: Performed By: #### C MP ####[facility] Ehndrsvgpz4670 [place] [address]Dr. Ricardo Rocha CO2 [Moles/Vol] 18.2 mmol/L Critically low 21.0-32.0 [facility] Comment on above: Performed By: #### C MP ####[facility] [address]zajjzxgjy[address] [place], [place] [address]Dr. Ricardo Rocha Creatinine [Mass/Vol] 1.76 mg/dL Critically high 0.55-1.02 [facility] Comment on above: Performed By: #### C MP ####[facility] Zmfypngmpm220[address] [place], [place] [address]Dr. Ricardo Rocha EGFR-AF ISRAELI 35 mL/min/1.73m2 Critically low >=60 [facility] Comment on above: Performed By: #### C MP ####[facility] Bdhbuuobdv[address] [place], [place] [address]Dr. Ricardo Rocha EGFR-NON AF ISRAELI 29 mL/min/1.73m2 Critically low >=60 [facility] Comment on above: Performed By: #### C MP ####[facility] Neeojqhewx64[address] [place], [place] [address]Dr. Ricardo Rocha Globulin (S) [Mass/Vol] 4.7 g/dL Normal [facility] Comment on above: Performed By: #### C MP ####[facility] Zeygzpzttf5323 [place] [phone]. Ricardo Rocha Glucose [Mass/Vol] 223 mg/dL Critically high 74-106 [facility] Comment on above: Performed By: #### C MP ####[facility] Xpvvnuelmt9459 [place] [address]Dr. Ricardo Rocha Potassium [Moles/Vol] 3.4 mmol/L Critically low 3.5-5.1 [facility] Comment on above: Performed By: #### C MP ####[facility] Qxzzcrvudo[address] [place], [place] [address]Dr. Ricardo Rocha Protein [Mass/Vol] 6.2 g/dL Critically low 6.4-8.2 [facility] Comment on above: Performed By: #### C MP ####[facility] Taklpscatu29[address] [place], [place] [address]Dr. Ricardo Rocha Sodium [Moles/Vol] 135 mmol/L Critically low 136-145 [facility] Comment on above: Performed By: #### C MP ####[facility] Ukfhkzquyw8[address] [place], [place] [address]Dr. Ricardo Rocha Urea nitrogen [Mass/Vol] 33.0 mg/dL Critically high 7.0-18.0 [facility] Comment on above: Performed By: #### C MP ####[facility] Voyhlfuvjh370[address] [place], [place] [address]Dr. Ricardo Rocha Urea nitrogen/Creatinine [Mass ratio] 18.8 mg/mg Normal [facility] Comment on above: Performed By: #### C MP ####[facility] Ucpvblnxge[address] [place], [place] [address]Dr. Ricardo Rocha VANCOMYCIN TROUGHon 06-13-20 22 VANCOMYCIN TROUGH 15.2 ug/ml Normal 5.0-20.0 [facility] Comment on above: Performed By: #### V ANCT ####[facility] Ykunbgbeey017[address] [place], [place] [address]Dr. Ricardo Rocha VIT B12 AND FOLATEon 022 Cobalamin (Vitamin B12) [Mass/Vol] 874.0 pg/mL Normal 193.0-986.0 [facility] Comment on above: Performed By: #### F ETIBC, B12FOL ####[facility] Gcsjstkguj[address] [place], [place] [address]Dr. Ricardo Rocha FOLATE 6.60 ng/mL Critically low 8.60-58.90 [facility] Comment on above: Performed By: #### F ETIBC, B12FOL ####[facility] Jyzsosyppg17[address] [place] [address]Dr. Ricardo Rocha XR FOOT LT MIN 3 VIEWSon XR FOOT LT MIN 3 VIEWS Normal [facility] CBC W MANUAL DIFFon 06-12-20 ATYPICAL LYMPH # Normal [facility] Comment on above: Performed By: #### C BCRED ####[facility] Rrfbmqozry37[address] [place] [address]Dr. Ricardo Rocha ATYPICAL LYMPH % Normal [facility] Comment on above: Performed By: #### C DWAINE ####[facility] Ijtctlhbwd170[address] [place], [place] [address]Dr. Ricardo Rocha BAND # 1.9 103/ul Critically high 0.0-0.3 [facility] Comment on above: Performed By: #### C DWAINE ####[facility] Eprolewjky[address] [place], [place] [address]Dr. Yimarcial Rocha BAND % 17 % Critically high 0-5 [facility] Comment on above: Performed By: #### C DWAINE ####[facility] Vrkxivuezi[address] [place], [place] [address]Dr. Ricardo Rocha BASOM # 0.00 103/ul Normal 0.00-0.10 [facility] Comment on above: Performed By: #### C BCRED ####[facility] Emcxldlaeh9[address] [place] [address]Dr. Yimarcial Rocha BASOM % 0.0 % Critically low 0.2-2.0 [facility] Comment on above: Performed By: #### C BCMAN ####[facility] Dtbecqhhmq[address] [place], [place] [address]Dr. Yilan Rocha BLAST # Normal [facility] Comment on above: Performed By: #### C DWAINE ####[facility] [address]fkvwqif[address] [place], [place] [address]Dr. Yilan Rocha BLAST % Normal [facility] Comment on above: Performed By: #### C DWAINE ####[facility] Bhkpiwlyix6545 [place] [phone]. Ricardo Rocha CORRECTED WBC Normal 4.0-11.0 [facility] Comment on above: Performed By: #### C DWAINE ####[facility] Pynaftwsrn1678 [place] [phone]. Ricardo Rocha EOS # 0.00 103/ul Normal 0.00-0.70 [facility] Comment on above: Performed By: #### C DWAINE ####[facility] Kihvmcneml1202 [place] [phone]. Ricardo Rocha EOS% 0.0 % Critically low 0.9-7.0 [facility] Comment on above: Performed By: #### C DWAINE ####[facility] Aovpfvetpf9028 [place] [phone]. Ricardo Rocha HCT 28.0 % Critically low 36.0-48.0 [facility] Comment on above: Performed By: #### C DWAINE ####[facility] Qqkekywxwx8581 [place] [phone]. Ricardo Rocha HGB 8.6 g/dl Critically low 12.0-16.0 [facility] Comment on above: Performed By: #### C DWAINE ####[facility] Cjwbpazfuc2960 [place] [phone]. Ricardo Rocha HYPOCHROMASIA SLIGHT Normal [facility] Comment on above: Performed By: #### C DWAINE ####[facility] Xxpsxuczjn2861 [place] [phone]. Ricardo Rocha LYMPHM # 0.77 103/ul Critically low 1.20-3.80 [facility] Comment on above: Performed By: #### C DWAINE ####[facility] Acntymdesd1034 [place] [phone]. Ricardo Rocha LYMPHM% 7.0 % Critically low 20.5-60.0 [facility] Comment on above: Performed By: #### C DWAINE ####[facility] Zzhxxxzprp2058 [place], [place] [address]Pv. Ricardo Rocha MCH 25.1 pg Critically low 26.7-34.0 [facility] Comment on above: Performed By: #### C DWAINE ####[facility] Ukcamqfyyc2742 [place] [phone]. Ricardo Rocha MCHC 30.7 g/dl Normal 29.9-35.2 [facility] Comment on above: Performed By: #### C DWAINE ####[facility] Ygvtqerxhw6472 [place] [phone]. Ricardo Rocha MCV 81.9 fL Normal 81.0-99.0 [facility] Comment on above: Performed By: #### C DWAINE ####[facility] Xqrpaboisn0500 [place] [phone]. Ricardo Rocha METAMYELOCYTE # Normal [facility] Comment on above: Performed By: #### C DWAINE ####[facility] Xptwygdwae6300 [place] [phone]. Ricardo Rocha METAMYELOCYTE % Normal [facility] Comment on above: Performed By: #### C DWAINE ####[facility] Rfvtomtfsl7182 [place] [phone]. Ricardo Rocha MONOM# 0.11 103/ul Critically low 0.30-0.80 [facility] Comment on above: Performed By: #### C DWAINE ####[facility] Switdxbtef5940 [place] [address]Dr. Ricardo Rocha MONOM% 1.0 % Critically low 1.7-12.0 [facility] Comment on above: Performed By: #### C DWAINE ####[facility] Bkeslomcfj6888 [place] [phone]. Ricardo Rocha MPV 12.6 fL Normal 9.5-13.5 [facility] Comment on above: Performed By: #### C DWAINE ####[facility] [address]xw[address] [place], [place] [address]Dr. Ricardo Aj MYELOCYTE # Normal [facility] Comment on above: Performed By: #### C DWAINE ####[facility] Afzfahloaj4748 [place] [phone]. Ricardo Rocha MYELOCYTE % Normal [facility] Comment on above: Performed By: #### C DWAINE ####[facility] Pdzxcocjtq8214 [place], [place] [address]Kg. Ricardo Rocha NRBC Normal [facility] Comment on above: Performed By: #### C DWAINE ####[facility] Ptbiuyimcg8938 [place] [phone]. Ricardo Rocha PLT 140 103/ul Critically low 150-450 [facility] Comment on above: Performed By: #### C DWAINE ####[facility] Nqywiogzuh8165 [place] [phone]. Ricardo Rocha RBC 3.42 106/ul Critically low 4.20-5.40 [facility] Comment on above: Performed By: #### C DWAINE ####[facility] Fogbpnfwpj4311 [place] [phone]. Ricardo Rocha RDW 13.7 % Normal 11.0-15.0 [facility] Comment on above: Performed By: #### C DWAINE ####[facility] Aiettwrstq8675 [place] [phone]. Ricardo Rocha SEG # 8.25 103/ul Critically high 1.40-6.50 [facility] Comment on above: Performed By: #### C DWAINE ####[facility] Lyxqjthfaw2192 [place] [phone]. Ricardo Rocha SEG % 75.0 % Normal 43.0-75.0 [facility] Comment on above: Performed By: #### C DWAINE ####[facility] Hirdyjkvgp4871 [place] [phone]. Ricardo Rocha WBC 11.0 103/ul Normal 4.0-11.0 [facility] Comment on above: Performed By: #### C DWAINE ####[facility] Uwmelfpbbg1217 [place] [address]Dr. Ricardo Rocha POINT OF CARE GLUCOSEon 10-2 Glucose [Mass/Vol] 200 mg/dL Critically high 74-106 [facility] Comment on above: Performed By: #### P OCGLUC ####[facility] Dvlpklrbbd0991 [place] [address]Dr. Ricardo Rocha Glucose [Mass/Vol] 165 mg/dL Critically high -106 [facility] Comment on above: Performed By: #### P OCGLUC ####[facility] Dwslxdoljf6197 [place] [address]Dr. Ricardo Rocha Glucose [Mass/Vol] 152 mg/dL Critically high -106 [facility] Comment on above: Performed By: #### P OCGLUC ####[facility] [address]qurduafo[address] [place], [place] [address]Dr. Ricardo Rocha Glucose [Mass/Vol] 154 mg/dL Critically high -106 [facility] Comment on above: Performed By: #### P OCGLUC ####[facility] Lljtpnqnex[address] [place], [place] [address]Dr. Ricardo Rocha PROF 14(COMP METB)on 022 Albumin [Mass/Vol] 1.9 g/dL Critically low 3.4-5.0 [facility] Comment on above: Performed By: #### C MP ####[facility] Oitxumeaxo7205 [place] [address]Dr. Nanomarcial Aj Albumin/Globulin [Mass ratio] 0.4 {ratio} Normal [facility] Comment on above: Performed By: #### C MP ####[facility] Hftuwsaylh1273 [place] [address]Dr. Ricardo Rocha ALP [Catalytic activity/Vol] 68 U/L Normal 46-116 [facility] Comment on above: Performed By: #### C MP ####[facility] Indudyxhvs[address] [place], [place] [address]Dr. Ricardo Rocha ALT [Catalytic activity/Vol] 16 U/L Normal 14-59 [facility] Comment on above: Performed By: #### C MP ####[facility] Braarciqxk184[address] [place], [place] [address]Dr. Ricardo Rocha Anion gap [Moles/Vol] 15.1 mmol/L Normal [facility] Comment on above: Performed By: #### C MP ####[facility] Cxptktswzb722[address] [place], [place] [address]Dr. Ricardo Aj AST [Catalytic activity/Vol] 26 U/L Normal 15-37 [facility] Comment on above: Performed By: #### C MP ####[facility] Krkytdqviu[address] [place], [place] [address]Dr. Ricardo Rocha Bilirubin [Mass/Vol] 0.3 mg/dL Normal 0.2-1.0 [facility] Comment on above: Performed By: #### C MP ####[facility] Fihhovjzfc213[address] [place], [place] [address]Dr. Ricardo Rocha Calcium [Mass/Vol] 8.0 mg/dL Critically low 8.5-10.1 [facility] Comment on above: Performed By: #### C MP ####[facility] Omjunlvmdg[address] [place], [place] [address]Dr. Ricardo Rocha Chloride [Moles/Vol] 110 mmol/L Critically high 98-107 [facility] Comment on above: Performed By: #### C MP ####[facility] Uqubqmaxom[address] [place], [place] [address]Dr. Ricardo Rocha CO2 [Moles/Vol] 18.0 mmol/L Critically low 21.0-32.0 [facility] Comment on above: Performed By: #### C MP ####[facility] [address]uzcsgquo[address] [place], [place] [address]Dr. Ricardo Rocha Creatinine [Mass/Vol] 1.97 mg/dL Critically high 0.55-1.02 [facility] Comment on above: Performed By: #### C MP ####[facility] Hexmtbphro[address] [place], [place] [address]Dr. Ricardo Rocha EGFR-AF ISRAELI 31 mL/min/1.73m2 Critically low >=60 [facility] Comment on above: Performed By: #### C MP ####[facility] [address]mbajxvdq[address] [place], [place] [address]Dr. Ricardo Aj EGFR-NON AF ISRAELI 26 mL/min/1.73m2 Critically low >=60 [facility] Comment on above: Performed By: #### C MP ####[facility] Rxarxnucdr7534 [place] [address]Dr. Ricardo Aj Globulin (S) [Mass/Vol] 5.2 g/dL Normal [facility] Comment on above: Performed By: #### C MP ####[facility] Qyyskkmhhw4588 [place] [address]Dr. Ricardo Aj Glucose [Mass/Vol] 146 mg/dL Critically high 74-106 [facility] Comment on above: Performed By: #### C MP ####[facility] Wymoblbdqq[address] [place], [place] [address]Dr. Ricardo Rocha Potassium [Moles/Vol] 3.1 mmol/L Critically low 3.5-5.1 [facility] Comment on above: Performed By: #### C MP ####[facility] Yglxjyrmmn[address] [place], [place] [address]Dr. Nanomarcial Rocha Protein [Mass/Vol] 7.1 g/dL Normal 6.4-8.2 [facility] Comment on above: Performed By: #### C MP ####[facility] Uyewqleira[address] [place], [place] [address]Dr. Ricardo Rocha Sodium [Moles/Vol] 140 mmol/L Normal 136-145 [facility] Comment on above: Performed By: #### C MP ####[facility] Xxiiwcxzit[address] [place], [place] [address]Dr. Ricardo Rocha Urea nitrogen [Mass/Vol] 30.0 mg/dL Critically high 7.0-18.0 [facility] Comment on above: Performed By: #### C MP ####[facility] Hoxhsksmku[address] [place], [place] [address]Dr. Ricardo Rocha Urea nitrogen/Creatinine [Mass ratio] 15.2 mg/mg Normal [facility] Comment on above: Performed By: #### C MP ####[facility] Sofismxcjw[address] [place], [place] [address]Dr. Ricardo Rocha CBC W MANUAL DIFFon 06-11-20 22 ATYPICAL LYMPH # Normal [facility] Comment on above: Performed By: #### C BCMAN ####[facility] Yknssgilpe69[address] [place] [address]Dr. Ricardo Rocha ATYPICAL LYMPH % Normal [facility] Comment on above: Performed By: #### C BCMAN ####[facility] Uodavndwhu4941 [place] [address]Dr. Ricardo Rocha BAND # 1.1 103/ul Critically high 0.0-0.3 [facility] Comment on above: Performed By: #### C BCMAN ####[facility] Wibplqoatw8740 [place] [address]Dr. Ricardo Rocha BAND % 12 % Critically high 0-5 [facility] Comment on above: Performed By: #### C BCRED ####[facility] [address]ugrocvmh[address] [place], [place] [address]Dr. Ricardo Rocha BASOM # 0.00 103/ul Normal 0.00-0.10 [facility] Comment on above: Performed By: #### C BCRED ####[facility] Qdmgkuioor[address] [place], [place] [address]Dr. Ricardo Rocha BASOM % 0.0 % Critically low 0.2-2.0 [facility] Comment on above: Performed By: #### C BCRED ####[facility] [address]ixlcaopho[address] [place], [place] [address]Dr. Ricardo Rocha BLAST # Normal [facility] Comment on above: Performed By: #### C BCRED ####[facility] Gynmgbeqzo2091 [place] [address]Dr. Ricardo Rocha BLAST % Normal [facility] Comment on above: Performed By: #### C BCMAN ####[facility] [address]vtbiyxtbr[address] [place], [place] [address]Dr. Ricardo Rocha CORRECTED WBC Normal 4.0-11.0 [facility] Comment on above: Performed By: #### C BCRED ####[facility] Uiqliwulix[address] [place], [place] [address]Dr. Ricardo Rocha EOS # 0.00 103/ul Normal 0.00-0.70 [facility] Comment on above: Performed By: #### C DWAINE ####[facility] Kvnwokybfg8154 [place] [id number]. Ricardo Rocha EOS% 0.0 % Critically low 0.9-7.0 [facility] Comment on above: Performed By: #### C DWAINE ####[facility] Tknnbslouy0884 [place] [id number]. Ricardo Rocha HCT 32.6 % Critically low 36.0-48.0 [facility] Comment on above: Performed By: #### C DWAINE ####[facility] Hgxrylrwoo6653 [place] [address]Dr. Ricardo Rocha HGB 10.5 g/dl Critically low 12.0-16.0 [facility] Comment on above: Performed By: #### C DWAINE ####[facility] [address]qwcwfmi[address] [place], [place] [address]Dr. Ricardo Rocha LYMPHM # 0.46 103/ul Critically low 1.20-3.80 [facility] Comment on above: Performed By: #### C DWAINE ####[facility] Gsrnxvumna3926 [place] [address]Dr. Ricardo Rocha LYMPHM% 5.0 % Critically low 20.5-60.0 [facility] Comment on above: Performed By: #### C DWAINE ####[facility] Pjspfutxwi6718 [place] [phone]. Ricardo Rocha MCH 25.3 pg Critically low 26.7-34.0 [facility] Comment on above: Performed By: #### C DWAINE ####[facility] X[address] [place], [place] [address]Dr. Ricardo Rocha MCHC 32.2 g/dl Normal 29.9-35.2 [facility] Comment on above: Performed By: #### C DWAINE ####[facility] Nvbcbrrhka3014 [place] [address]Dr. Ricardo Rocha MCV 78.6 fL Critically low 81.0-99.0 [facility] Comment on above: Performed By: #### C DWAINE ####[facility] Yyrromgiod5561 [place], [place] [address]Lv. Ricardo Rocha METAMYELOCYTE # Normal [facility] Comment on above: Performed By: #### C DWAINE ####[facility] Utjxgssdqg3897 [place], [place] [address]Kg. Ricardo Rocha METAMYELOCYTE % Normal [facility] Comment on above: Performed By: #### C DWAINE ####[facility] Mffrfhljzd6358 [place], [place] [address]Dd. Ricardo Rocha MONOM# 0.28 103/ul Critically low 0.30-0.80 [facility] Comment on above: Performed By: #### C DWAINE ####[facility] Rccdtfiwvb3928 [place] [id number]. Ricardo Rocha MONOM% 3.0 % Normal 1.7-12.0 [facility] Comment on above: Performed By: #### C DWAINE ####[facility] Qrqnonzjnt4796 [place] [phone]. Ricardo Rocha MPV 11.4 fL Normal 9.5-13.5 [facility] Comment on above: Performed By: #### C DWAINE ####[facility] Pkiqwvbbaw[address] [place] [phone]. Ricardo Rocha MYELOCYTE # Normal [facility] Comment on above: Performed By: #### C DWAINE ####[facility] Ohgsvnlitb0620 [place], [place] [address]Nl. Ricardo Rocha MYELOCYTE % Normal [facility] Comment on above: Performed By: #### C DWAINE ####[facility] Kvxvhshfbr9[address] [place] [phone]. Ricardo Rocha NRBC Normal [facility] Comment on above: Performed By: #### C DWAINE ####[facility] Satdtlvfvt0352 [place] [phone]. Ricardo Rocha PLT 154 103/ul Normal 150-450 [facility] Comment on above: Performed By: #### C BCRED ####[facility] Jkeewkgeyj8557 [place], [place] [address]Pt. Ricardo Rocha RBC 4.15 106/ul Critically low 4.20-5.40 [facility] Comment on above: Performed By: #### C BCRED ####[facility] Swgakfhkeb3824 [place], [place] [address]Ph. Ricardo Rocha RDW 12.8 % Normal 11.0-15.0 [facility] Comment on above: Performed By: #### C BCRED ####[facility] Zzqchfqnna9259 [place], [place] [address]Mi. Ricardo Rocha SEG # 7.36 103/ul Critically high 1.40-6.50 [facility] Comment on above: Performed By: #### C BCRED ####[facility] Gbdofhqrbf8767 [place], [place] [address]Na. Ricardo Rocha SEG % 80.0 % Critically high 43.0-75.0 [facility] Comment on above: Performed By: #### C BCRED ####[facility] Jehdgruqph5546 [place], [place] [address]Ty. Ricardo Rocha WBC 9.2 103/ul Normal 4.0-11.0 [facility] Comment on above: Performed By: #### C DWAINE ####[facility] Vmglrxcbpp5511 [place], [place] [address]La. Ricardo Rocha CT HEAD WO CONon 06-11-2022 CT HEAD WO CON Normal [facility] CULTURE ANAEROBICon 06-11-20 22 CULTURE ANAEROBIC Culture Observations : NO GROWTH OF ANAEROBES AT 72 HOURS. [place] [facility] Comment on above: Performed By: #### A NACX ####[facility] Wrizibggdy8543 [place], [place] [address]Vv. Ricardo Rocha CULTURE ANAEROBIC Culture Observations : NO GROWTH OF ANAEROBES AT 72 HOURS. Normal [facility] Comment on above: Performed By: #### A NACX ####[facility] Cleizlxfzk6720 [place], [place] [address]Kg. Ricardo Rocha CULTURE BLOODon 06-11-2022 Microscopic examination of blood, culture Culture Observations: Aerobic bottle positive only. Culture Observations: No growth at 5 days in anaerobic bottle Culture Observations: See for Susceptibility testing. Isolate 1 Staphylococcus aureus Growth of Normal [facility] Comment on above: Performed By: #### B LDCX2 ####[facility] Cgwftkdaqq9043 [place] [phone]. Ricardo Rocha CULTURE URINEon 06-11-2022 CULTURE URINE Culture Observations : LIGHT GROWTH OF MIXED GENITAL SHAHLA. NO POTENTIAL PATHOGENS SEEN. Normal [facility] Comment on above: Performed By: #### U RCX ####[facility] Wjnujbcewy[address] [place], [place] [address]Dr. Ricardo [facility] Covid-19 PCR (CVDTBH)on 05-22 SARS-CoV-2 (COVID-19) RNA ADRIEL+probe Ql (Unsp spec) Not detected Normal NOT DETECTED [facility] Comment on above: Result Comment: When diagnostic [...] this test is supported by the Supervisor [place] of Health and Human Service's declaration that [...] be used). Performed By: #### C VDTBH ####[facility] Eeadmvghbk98[address] [place] [phone]. Ricardo Rocha ER URINE PROFILEon 2 Bilirubin Ql (U) Negative Normal NEGATIVE [facility] Comment on above: Performed By: #### E SHAYNA HINOJOSA ####[facility] Alnpauedjs[address] [place] [address]Dr. Ricardo Rocha Clarity (U) CLEAR Normal CLEAR [facility] Comment on above: Performed By: #### SHAYNA ELENA ####[facility] Othfuxqeik13[address] [place] [phone]. Ricardo Rocha Color (U) LT. YELLOW Normal YELLOW [facility] Comment on above: Performed By: #### SHAYNA ELENA ####[facility] Ahwoxvlgfa[address] [place], [place] [address]Dr. Ricardo Rocha ERUAHD A micrscopic examination will be performed if indicated. Normal [facility] Comment on above: Performed By: #### SHAYNA ELENA ####[facility] Juygthsszj[address] [place], [place] [address]Dr. Ricardo Rocha Glucose Ql (U) >1000 Abnormal NEGATIVE [facility] Comment on above: Performed By: #### SHAYNA ELENA ####[facility] Oujqhooofu[address] [place], [place] [address]Dr. Ricardo Rocha Hemoglobin Ql (U) LARGE Abnormal NEGATIVE The [facility] Comment on above: Performed By: #### SHAYNA ELENA ####[facility] Htxxkzegyb[address] [place], [place] [address]Dr. Ricardo Rocha Ketones Ql (U) 15 mg/dl Abnormal NEGATIVE [facility] Comment on above: Performed By: #### SHAYNA ELENA ####[facility] Liehihmjyb[address] [place], [place] [address]Dr. Ricardo Rocha LEUKOCYTES Negative Normal NEGATIVE [facility] Comment on above: Performed By: #### SHAYNA ELENA ####[facility] Bxabzictiw[address] [place], [place] [address]Dr. Ricardo Rocha Nitrite Ql (U) Negative Normal NEGATIVE [facility] Comment on above: Performed By: #### SHAYNA ELENA ####[facility] Nerscubjki[address] [place], [place] [address]Dr. Ricardo Rocha pH (U) 6.0 [pH] Normal 5-9 [facility] Comment on above: Performed By: #### SHAYNA ELENA ####[facility] Ciuudbrmds[address] [place], [place] [address]Dr. Ricardo Rocha Protein (U) [Mass/Vol] 100 mg/dL Abnormal NEGATIVE/ TRACE [facility] Comment on above: Performed By: #### SHAYNA ELENA ####[facility] Gzvgditwws[address] [place], [place] [address]Dr. Ricardo Rocha SPEC GRAVITY 1.020 Normal 1.005-<=1.02 5 [facility] Comment on above: Performed By: #### SHAYNA ELENA ####[facility] Lfsjsqeghe[address] [place], [place] [address]Dr. Ricardo Rocha UR MICRO IND INDICATED Normal [facility] Comment on above: Performed By: #### SHAYNA ELENA ####[facility] Aszellfkin[address] [place], [place] [address]Dr. Ricardo Rocha Urobilinogen Qn (U) 0.2 {Madeleine'U}/dL Normal 0.2 - 1. 0 [facility] Comment on above: Performed By: #### SHAYNA ELENA ####[facility] Pbbweqntee[address] [place], [place] [address]Dr. Ricardo Rocha GRAM STAINon 06-11-2022 DIPHTHEROIDS Normal [facility] Comment on above: Performed By: #### G STAIN ####[facility] Rtobfjngre[address] [place], [place] [address]Dr. Ricardo Rocha EPITHELIALS Normal [facility] Comment on above: Performed By: #### G STAIN ####[facility] Xwcenushda[address] [place], [place] [address]Dr. Ricardo Rocha FUNGAL ELEMENTS Normal [facility] Comment on above: Performed By: #### G STAIN ####[facility] Eznzxodpen[address] [place], [place] [address]Dr. Ricardo Rocha GRAM NEG BACILLI Normal [facility] Comment on above: Performed By: #### G STAIN ####[facility] Ujsesdbsed4768 [place] [phone]. Ricardo Rocha GRAM NEG DIPPLOCOCCI Normal [facility] Comment on above: Performed By: #### G STAIN ####[facility] Dlhbtdcuwp5372 [place] [address]Dr. Ricardo Rocha GRAM POS BACILLI Normal [facility] Comment on above: Performed By: #### G STAIN ####[facility] Aanyomygak9958 [place] [phone]. Ricardo Rocha GRAM POSITIVE COCCI MANY Normal The [facility] Comment on above: Performed By: #### G STAIN ####[facility] Lxinvsvdvj6237 [place] [address]Dr. Ricardo Rocha GRAM STAIN SOURCE Left great toe tissu e after washout-clean Normal [facility] Comment on above: Performed By: #### G STAIN ####[facility] Cudfoowrko[address] [place], [place] [address]Dr. Ricardo Rocha GS_DIPTH Normal [facility] Comment on above: Performed By: #### G STAIN ####[facility] [address]kgdkwityz[address] [place], [place] [address]Dr. Ricardo Rocha WBC RARE Normal [facility] Comment on above: Performed By: #### G STAIN ####[facility] [address]kkugpspar[address] [place], [place] [address]Dr. Ricardo Rocha DIPHTHEROIDS Normal [facility] Comment on above: Performed By: #### G STAIN ####[facility] [address]ieuvj[address]ii[address] [place] [address]Dr. Ricardo Rocha EPITHELIALS Normal [facility] Comment on above: Performed By: #### G STAIN ####[facility] Nkqwtiuklj5437 [place] [address]Dr. Ricardo Rocha FUNGAL ELEMENTS Normal [facility] Comment on above: Performed By: #### G STAIN ####[facility] Wxwquhsesr9538 [place] [address]Dr. Ricardo Rocha GRAM NEG BACILLI Normal [facility] Comment on above: Performed By: #### G STAIN ####[facility] Uerexpbnib6537 [place] [address]Dr. Ricardo Rocha GRAM NEG DIPPLOCOCCI Normal [facility] Comment on above: Performed By: #### G STAIN ####[facility] Lsiuprkwod4103 [place] [address]Dr. Ricardo Rocha GRAM POS BACILLI Normal [facility] Comment on above: Performed By: #### G STAIN ####[facility] Qwaferakyt[address]19 [place] [address]Dr. Ricardo Rocha GRAM POSITIVE COCCI RARE Normal The [facility] Comment on above: Performed By: #### G STAIN ####[facility] Jiftlnwrak4644 [place] [address]Dr. Ricardo Rocha GRAM STAIN SOURCE Left great toe Normal [facility] Comment on above: Performed By: #### G STAIN ####[facility] [address]gtfhzcrur[address] [place], [place] [address]Dr. Ricardo Rocha GS_DIPTH Normal [facility] Comment on above: Performed By: #### G STAIN ####[facility] Ktbzsiuxlt[address] [place], [place] [address]Dr. Ricardo Rocha WBC RARE Normal [facility] Comment on above: Performed By: #### G STAIN ####[facility] Akovozogdf[address] [place], [place] [address]Dr. Ricardo Rocha DIPHTHEROIDS Normal [facility] Comment on above: Performed By: #### G STAIN ####[facility] Chzzhenptr370[address] [place], [place] [address]Dr. Ricardo Rocha EPITHELIALS Normal [facility] Comment on above: Performed By: #### G STAIN ####[facility] Litixgpkij3056 [place] [address]Dr. Ricardo Rocha FUNGAL ELEMENTS Normal [facility] Comment on above: Performed By: #### G STAIN ####[facility] [address]ikgcugkyl[address] [place], [place] [address]Dr. Ricardo Rocha GRAM NEG BACILLI Normal [facility] Comment on above: Performed By: #### G STAIN ####[facility] Jplhionyew[address] [place], [place] [address]Dr. Ricardo Rocha GRAM NEG DIPPLOCOCCI Normal [facility] Comment on above: Performed By: #### G STAIN ####[facility] Nrbmrgzaps1199 [place] [phone]. Ricardo Rocha GRAM POS BACILLI Normal [facility] Comment on above: Performed By: #### G STAIN ####[facility] Bhlosmsonm3147 [place] [address]Dr. Ricardo Rocha GRAM POSITIVE COCCI FEW Normal [facility] Comment on above: Performed By: #### G STAIN ####[facility] Gfuwodmpie[address] [place], [place] [address]Dr. Ricardo Rocha GRAM STAIN SOURCE Left great toe abscess Normal [facility] Comment on above: Performed By: #### G STAIN ####[facility] Snjkrorsok[address] [place], [place] [address]Dr. Ricardo Rocha GS_DIPTH Normal [facility] Comment on above: Performed By: #### G STAIN ####[facility] Sgyglgfuck[address] [place], [place] [address]Dr. Ricardo Rocha WBC FEW Normal [facility] Comment on above: Performed By: #### G STAIN ####[facility] Vrsuhasrua[address] [place], [place] [address]Dr. Ricardo Rocha LACTATE/LACTIC ACIDon 2021 Lactate [Moles/Vol] 2.2 mmol/L Critically high 0.4-1.9 [facility] Comment on above: Performed By: #### L ACT ####[facility] Fgglxpspoh[address] [place], [place] [address]Dr. Ricardo Rocha POINT OF CARE GLUCOSEon 05-22 Glucose [Mass/Vol] 133 mg/dL Critically high 74-106 [facility] Comment on above: Performed By: #### P OCGLUC ####[facility] Lejxwwremd30[address] [place], [place] [address]Dr. Ricardo Rocha Glucose [Mass/Vol] 215 mg/dL Critically high 74-106 [facility] Comment on above: Performed By: #### P OCGLUC ####[facility] Zneicitkut8[address] [place], [place] [address]Dr. Ricardo Rocha Glucose [Mass/Vol] 207 mg/dL Critically high 74-106 [facility] Comment on above: Performed By: #### P OCGLUC ####[facility] Ddthfpnizt2453 [place] [address]Dr. Ricardo Rocha Glucose [Mass/Vol] 314 mg/dL Critically high 74-106 [facility] Comment on above: Performed By: #### P OCGLUC ####[facility] Otsbynmfrn[address] [place], [place] [address]Dr. Ricardo Rocha Glucose [Mass/Vol] 496 mg/dL Critically high 74-106 [facility] Comment on above: Performed By: #### P OCGLUC ####[facility] Ftsfintqxy164[address] [place], [place] [address]Dr. Ricardo Rocha Glucose [Mass/Vol] 561 mg/dL Critically high 74-106 [facility] Comment on above: Result Comment: Prev iously Confirmed Performed By: #### P OCGLUC ####[facility] [address]qdgqkyl[address] [place], [place] [address]Dr. Ricardo Aj PROF 14(COMP METB)on 022 Albumin [Mass/Vol] 2.4 g/dL Critically low 3.4-5.0 [facility] Comment on above: Performed By: #### C MP ####[facility] Vidvfcptmj[address] [place], [place] [address]Dr. Ricardo Aj Albumin/Globulin [Mass ratio] 0.4 {ratio} Normal [facility] Comment on above: Performed By: #### C MP ####[facility] Axezlsites[address] [place], [place] [address]Dr. Ricardo Aj ALP [Catalytic activity/Vol] 82 U/L Normal 46-116 [facility] Comment on above: Performed By: #### C MP ####[facility] Eszkszspol[address] [place], [place] [address]Dr. Ricardo Aj ALT [Catalytic activity/Vol] 12 U/L Critically low 14-59 [facility] Comment on above: Performed By: #### C MP ####[facility] Iqscljjyxz6732 [place] [address]Dr. Ricardo Rocha Anion gap [Moles/Vol] 15.1 mmol/L Normal [facility] Comment on above: Performed By: #### C MP ####[facility] Seosbsswwu[address] [place], [place] [address]Dr. Ricardo Rocha AST [Catalytic activity/Vol] 14 U/L Critically low 15-37 [facility] Comment on above: Performed By: #### C MP ####[facility] Ofvichpipq0640[address] [place], [place] [address]Dr. Ricardo Rocha Bilirubin [Mass/Vol] 0.4 mg/dL Normal 0.2-1.0 [facility] Comment on above: Performed By: #### C MP ####[facility] Iyyofejdge[address] [place], [place] [address]Dr. Ricardo Rocha Calcium [Mass/Vol] 8.8 mg/dL Normal 8.5-10.1 [facility] Comment on above: Performed By: #### C MP ####[facility] Mnekaspupy[address] [place], [place] [address]Dr. Ricardo Aj Chloride [Moles/Vol] 105 mmol/L Normal 98-107 [facility] Comment on above: Performed By: #### C MP ####[facility] Rrqhdqrlmq[address] [place], [place] [address]Dr. Ricardo Rocha CO2 [Moles/Vol] 21.2 mmol/L Normal 21.0-32.0 [facility] Comment on above: Performed By: #### C MP ####[facility] Osgmgkjyso[address] [place], [place] [address]Dr. Nanomarcial Aj Creatinine [Mass/Vol] 2.03 mg/dL Critically high 0.55-1.02 [facility] Comment on above: Performed By: #### C MP ####[facility] [address]qguqktzml[address] [place], [place] [address]Dr. Ricardo Aj EGFR-AF ISRAELI 30 mL/min/1.73m2 Critically low >=60 [facility] Comment on above: Performed By: #### C MP ####[facility] Otakzzrlfa[address] [place], [place] [address]Dr. Ricardo Rocha EGFR-NON AF ISRAELI 25 mL/min/1.73m2 Critically low >=60 [facility] Comment on above: Performed By: #### C MP ####[facility] Mainjufsbh[address] [place] [address]Dr. Ricardo Rocha Globulin (S) [Mass/Vol] 5.7 g/dL Normal [facility] Comment on above: Performed By: #### C MP ####[facility] Pogqvlevuq0218 [place] [address]Dr. Ricardo Rocha Glucose [Mass/Vol] 309 mg/dL Critically high 74-106 [facility] Comment on above: Performed By: #### C MP ####[facility] Pclpukjpgy[address] [place], [place] [address]Dr. Ricardo Rocha Potassium [Moles/Vol] 3.3 mmol/L Critically low 3.5-5.1 [facility] Comment on above: Performed By: #### C MP ####[facility] Heayjzmpoe[address] [place], [place] [address]Dr. Ricardo Rocha Protein [Mass/Vol] 8.1 g/dL Normal 6.4-8.2 The [facility] Comment on above: Performed By: #### C MP ####[facility] Uuuxhsmsuc208[address] [place], [place] [address]Dr. Ricardo Rocha Sodium [Moles/Vol] 138 mmol/L Normal 136-145 [facility] Comment on above: Performed By: #### C MP ####[facility] Xadzanlcom[address] [place], [place] [address]Dr. Ricardo Rocha Urea nitrogen [Mass/Vol] 37.0 mg/dL Critically high 7.0-18.0 [facility] Comment on above: Performed By: #### C MP ####[facility] [address]yrrtqdn[address] [place], [place] [address]Dr. Ricardo Rocha Urea nitrogen/Creatinine [Mass ratio] 18.2 mg/mg Normal [facility] Comment on above: Performed By: #### C MP ####[facility] X[address]jexbvkbg[address] [place], [place] [address]Dr. Ricardo Rocha SED RATE WESTERGREN 2021 SED RATE >130 Critically high <=30 [facility] Comment on above: Performed By: #### S EDR ####[facility] Ekqhczgsic[address] [place] [address]Dr. Ricardo Rocha URINE MICROSCOPIC ONLYon AMORPHOUS CRYSTALS MODERATE Normal [facility] Comment on above: Performed By: #### Jennifer HINOJOSA UMICRO ####[facility] Zpbgpunwaj[address] [place] [address]Dr. Ricardo Rocha BACTERIA MODERATE Abnormal NONE SEEN [facility] Comment on above: Performed By: #### Jennifer HINOJOSA UMICRO ####[facility] Spwdiplldd64[address] [place] [address]Dr. Ricardo Rocha Bacteria identified Cx Nom (U) INDICATED Normal [facility] Comment on above: Performed By: #### E RURaquel UMICRO ####[facility] Wuowtydykd7460 [place] [address]Dr. Ricardo Rocha CAST NONE SEEN Normal NONE SEEN [facility] Comment on above: Performed By: #### Jennifer HINOJOSA UMICRO ####[facility] Laigpreaqq[address] [place] [address]Dr. Ricardo Rocha Crystals LM Nom (Urine sed) SEEN Abnormal NONE SEEN [facility] Comment on above: Performed By: #### Jennifer RURaquel UMICRO ####[facility] Fcgmcigosf1297 [place] [address]Dr. Ricardo Rocha Epithelial cells LM Ql (Urine sed) NONE SEEN Normal NONE SEEN /RARE [facility] Comment on above: Performed By: #### E RURaquel UMICRO ####[facility] Gsbzddfdmc4[address] [place] [address]Dr. Ricardo Rocha MUCOUS NONE SEEN Normal NONE SEEN [facility] Comment on above: Performed By: #### E RURaquel UMICRO ####[facility] Cbabeuepey[address] [place] [address]Dr. Ricardo Rocha RBC 2-5 Abnormal 0-2 [facility] Comment on above: Performed By: #### E SHAYNA HINOJOSA ####[facility] [address]oyydadwru6[address] [place] [phone]. Ricardo Rocha WBC 5-10 Abnormal NONE SEEN [facility] Comment on above: Performed By: #### E SHAYNA HINOJOSA ####[facility] Akljhujcrq[address] [place] [phone]. Ricardo Rocha XR CHEST 1 Von 06-11-2022 XR CHEST 1 V Normal [facility] XR FOOT LT MIN 3 VIEWSon XR FOOT LT MIN 3 VIEWS Normal [facility] XR FOOT LT MIN 3 VIEWS Normal [facility] ACETONE SERUMon 06-10-2022 ACETONE Negative Normal NEGATIVE [facility] Comment on above: Performed By: #### A CETON ####[facility] Cozfyudrlh[address] [place] [address]Dr. Ricardo Rocha AMMONIAon 06-10-2022 Ammonia (P) [Mass/Vol] ug/dL Critically low [facility] Comment on above: Performed By: #### A MM ####[facility] Tokwidjxuf[address] [place] [address]Dr. Ricardo Rocah BLOOD CULTURE ID PANELon A. baumannii Not detected Normal NOT DETECTED [facility] Comment on above: Performed By: #### B CID2 ####[facility] Bbjkpwynde[address] [place] [address]Dr. Ricardo Rocha Bacteriodes fragilis Not detected Normal NOT DETECTED [facility] Comment on above: Performed By: #### B CID2 ####[facility] Dzhxlpnhdv8922 [place] [phone]. Ricardo Rocha BCID CONTROLS PASSED Normal [facility] Comment on above: Performed By: #### B CID2 ####[facility] Dxpskctmjo5785 [place] [address]Dr. Ricardo Rocha BCIDBTHD BLOOD CULTURE BOTTLE INFORMATION Normal [facility] Comment on above: Performed By: #### B CID2 ####[facility] [address]worapu[address] [place], [place] [address]Dr. Ricardo Rocha BCIDHD1 ANTIMICROBIAL RESISTANCE GENES Normal [facility] Comment on above: Performed By: #### B CID2 ####[facility] Hlnfacwwxa[address] [place] [address]Dr. Yimarcial Rocha BCIDHD2 SEE BELOW Normal [facility] Comment on above: Result Comment: Note : Antimicrobial resitance can occur via multiple mechanisms. A Not Detected result for the [employer] antomicrobial resistance gene assays does not indicate antimicrobial susceptibility. Subculturing is required for species identification and susceptibility testing of isolates. Performed By: #### B CID2 ####[facility] Xisgpfumjc[address] [place], [place] [address]Dr. Ricardo Rocha BCIDHD3 Positive Normal [facility] Comment on above: Performed By: #### B CID2 ####[facility] Uiadwrmkgw[address] [place], [place] [address]Dr. Ricardo Rocha BCIDHD4 Negative Normal [facility] Comment on above: Performed By: #### B CID2 ####[facility] Cznwmwfgzh9[address] [place], [place] [address]Dr. Ricardo Rocha BCIDHD5 YEAST Normal [facility] Comment on above: Performed By: #### B CID2 ####[facility] Edhntuqoeu08[address] [place], [place] [address]Dr. Ricardo Rocha Bottle Set: Set 1 Normal [facility] Comment on above: Performed By: #### B CID2 ####[facility] Nrwvnxsjxl046[address] [place], [place] [address]Dr. Nanomarcial Rocha Bottle: Aerobic Normal [facility] Comment on above: Performed By: #### B CID2 ####[facility] Ssxjdisyed79[address] [place] [address]Dr. Yimarcial Rocha C. neoformans/gattii Not detected Normal NOT DETECTED [facility] Comment on above: Performed By: #### B CID2 ####[facility] Wvblifuaqa27[address] [place], [place] [address]Dr. Yimarcial Rocha Lauren albicans Not detected Normal NOT DETECTED [facility] Comment on above: Performed By: #### B CID2 ####[facility] Ertyzbvsfa4977 [place] [id number]. Yimarcial Rocha Lauren auris Not detected Normal NOT DETECTED The [facility] Comment on above: Performed By: #### B CID2 ####[facility] Zjvmdomiew6562 [place] [id number]. Yilan Rocha Lauren glabrata Not detected Normal NOT DETECTED [facility] Comment on above: Performed By: #### B CID2 ####[facility] Lxzqfddkxq5135 [place] [phone]. Yilan Rocha Lauren Krusei Not detected Normal NOT DETECTED The [facility] Comment on above: Performed By: #### B CID2 ####[facility] Ghzicuiflj42[address] [place], [place] [address]Dr. Yimarcial Rocha Lauren Parapsilosis Not detected Normal NOT DETECTED [facility] Comment on above: Performed By: #### B CID2 ####[facility] Trumrwkdsu317[address] [place], [place] [address]Dr. Yimarcial Rocha Lauren Tropicalis Not detected Normal NOT DETECTED [facility] Comment on above: Performed By: #### B CID2 ####[facility] Cdmsaddbvj0220[address] [place], [place] [address]Dr. Ricardo Rocha CTX-M Resistant Gene Not Applicable Normal NOT DETECTE D [facility] Comment on above: Performed By: #### B CID2 ####[facility] Lqxvnewnwc339[address] [place], [place] [address]Dr. Yimarcial Rocha E. Cloacae complex Not detected Normal NOT DETECTED [facility] Comment on above: Performed By: #### B CID2 ####[facility] Zbofkeofza[address]111 [place] [phone]. Yilan Rocha E. faecalis Not detected Normal NOT DETECTED The [facility] Comment on above: Performed By: #### B CID2 ####[facility] Rblxocnxqh6738[address] [place], [place] [address]Dr. Yilan Rocha E. faecium Not detected Normal NOT DETECTED [facility] Comment on above: Performed By: #### B CID2 ####[facility] Hutklfriff405[address] [place], [place] [address]Dr. Ricardo Rocha Enterobacteriaceae Not detected Normal NOT DETECTED [facility] Comment on above: Performed By: #### B CID2 ####[facility] Ycdufrnjgw879[address] [place], [place] [address]Dr. Ricardo Rocha Escherichia coli Not detected Normal NOT DETECTED [facility] Comment on above: Performed By: #### B CID2 ####[facility] Wsmrpumifq5246 [place] [address]Dr. Ricardo Rocha H. influenzae Not detected Normal NOT DETECTED [facility] Comment on above: Performed By: #### B CID2 ####[facility] Ltjsfufjzx1728[address] [place], [place] [address]Dr. Ricardo Rocha IMP Resistant Gene Not Applicable Normal NOT DETECTED [facility] Comment on above: Performed By: #### B CID2 ####[facility] Evvhhdwygo34[address] [place], [place] [address]Dr. Ricardo Rocha K. oxytoca Not detected Normal NOT DETECTED [facility] Comment on above: Performed By: #### B CID2 ####[facility] Vvwhpkczet794[address] [place], [place] [address]Dr. Ricardo Rocha K. pneumoniae Not detected Normal NOT DETECTED [facility] Comment on above: Performed By: #### B CID2 ####[facility] Koiaihbifu416[address] [place], [place] [address]Dr. Ricardo Rocha Klebsiella aerogenes Not detected Normal NOT DETECTED [facility] Comment on above: Performed By: #### B CID2 ####[facility] Cjthgytjyz574[address] [place], [place] [address]Dr. Ricardo Rocha KPC Resistant Gene Not Applicable Normal NOT DETECTED [facility] Comment on above: Performed By: #### B CID2 ####[facility] Oljylrzdgo657[address] [place], [place] [address]Dr. Ricardo Rocha List. monocytogenes Not detected Normal NOT DETECTED [facility] Comment on above: Performed By: #### B CID2 ####[facility] Zlvmksagdb958[address] [place], [place] [address]Dr. Ricardo Rocha Mcr-1 Resistant Gene Not Applicable Normal NOT DETECTE D [facility] Comment on above: Performed By: #### B CID2 ####[facility] Yjrhapupxc8387 [place] [address]Dr. Nanomarcial Aj mecA/C Not Applicable Normal NOT DETECTED [facility] Comment on above: Performed By: #### B CID2 ####[facility] Eilfndfwjg6816 [place] [address]Dr. Ricardo Rocha mecA/C MREJ Detected Abnormal NOT DETECTED [facility] Comment on above: Performed By: #### B CID2 ####[facility] Cmgfsmssar9[address] [place], [place] [address]Dr. Ricardo Rocha N. meningitidis Not detected Normal NOT DETECTED The [facility] Comment on above: Performed By: #### B CID2 ####[facility] Pdkfrexmqp1375[address] [place], [place] [address]Dr. Ricardo Rocha NDM Resistant Gene Not Applicable Normal NOT DETECTED [facility] Comment on above: Performed By: #### B CID2 ####[facility] Hqviwfints976[address] [place], [place] [address]Dr. Ricardo Rocha Oxa-48-like Not Applicable Normal NOT DETECTED [facility] Comment on above: Performed By: #### B CID2 ####[facility] Lgxhmjmjcm848[address] [place], [place] [address]Dr. Ricardo Rocha Proteus Not detected Normal NOT DETECTED [facility] Comment on above: Performed By: #### B CID2 ####[facility] Bsyfqjolpj210[address] [place], [place] [address]Dr. Ricardo Rocha Pseud. aeruginosa Not detected Normal NOT DETECTED [facility] Comment on above: Performed By: #### B CID2 ####[facility] Grvkrkzkdt713[address] [place], [place] [address]Dr. Ricardo Rocha S. maltophilia Not detected Normal NOT DETECTED [facility] Comment on above: Performed By: #### B CID2 ####[facility] Clffxvaguz138[address] [place], [place] [address]Dr. Ricardo Rocha Salmonella Not detected Normal NOT DETECTED [facility] Comment on above: Performed By: #### B CID2 ####[facility] Qntrnyivkr201[address] [place], [place] [address]Dr. Ricardo Rocha Seratia marcescens Not detected Normal NOT DETECTED [facility] Comment on above: Performed By: #### B CID2 ####[facility] Rvzflsdzyd610[address] [place], [place] [address]Dr. Ricardo Rocha Site: LEFT AC IV START Normal [facility] Comment on above: Performed By: #### B CID2 ####[facility] Mvsmqklsmb834[address] [place], [place] [address]Dr. Ricardo Rocha Staph. aureus Detected Critically abnormal NOT DETECTED [facility] Comment on above: Performed By: #### B CID2 ####[facility] Ibpjgpwkls99[address] [place], [place] [address]Dr. Ricardo Rocha Staph. epidermidis Not detected Normal NOT DETECTED [facility] Comment on above: Performed By: #### B CID2 ####[facility] Gavvtxlljt9264[address] [place], [place] [address]Dr. Ricardo Rocha Staph. lugdunensis Not detected Normal NOT DETECTED [facility] Comment on above: Performed By: #### B CID2 ####[facility] Sgurqkfsqx94[address] [place], [place] [address]Dr. Ricardo Rocha Staphylococcus Detected Critically abnormal NOT DETECTED [facility] Comment on above: Performed By: #### B CID2 ####[facility] Glbqyrglzt708[address] [place], [place] [address]Dr. Ricardo Rocha Strep. agalactiae Not detected Normal NOT DETECTED [facility] Comment on above: Performed By: #### B CID2 ####[facility] Ysavtpnvca3436[address] [place], [place] [address]Dr. Ricardo Rocha Strep. pneumoniae Not detected Normal NOT DETECTED [facility] Comment on above: Performed By: #### B CID2 ####[facility] Icvqffzgsv569[address] [place], [place] [address]Dr. Ricardo Rocha Strep. pyogenes Not detected Normal NOT DETECTED The [facility] Comment on above: Performed By: #### B CID2 ####[facility] Jhhgalzbwp3607 [place] [address]Dr. Ricardo Rocha Streptococcus Not detected Normal NOT DETECTED [facility] Comment on above: Performed By: #### B CID2 ####[facility] Boejqwnmgb4875 [place] [address]Dr. Riacrdo Rocha Layne/B Resist. Gene Not Applicable Normal NOT DETECTED [facility] Comment on above: Performed By: #### B CID2 ####[facility] Echbjsiczc4429 [place] [address]Dr. Ricardo Rocha VIM Resistant Gene Not Applicable Normal NOT DETECTED [facility] Comment on above: Performed By: #### B CID2 ####[facility] Bhmjesdmio7[address] [place], [place] [address]Dr. Ricardo Rocha BLOOD GASES BTYon 06-10-2022 02 MODE ROOM AIR Normal [facility] Comment on above: Performed By: #### A BG ####[facility] Hnvwjvbode189[address] [place], [place] [address]Dr. Ricardo Rocha ALLENS TEST Positive [facility] Comment on above: Performed By: #### A BG ####[facility] Srlaglddja39[address] [place], [place] [address]Dr. Ricardo Rocha Base excess Calc (Bld) [Moles/Vol] -4.5000 mmol/L Critically low -2.0-2.0 [facility] Comment on above: Performed By: #### A BG ####[facility] Ugqeabgecr2640[address] [place], [place] [address]Dr. Ricardo Rocha BIPAP PRESSURE Normal [facility] Comment on above: Performed By: #### A BG ####[facility] Xzwddguvsb738[address] [place], [place] [address]Dr. Ricardo Rocha CPAP Normal [facility] Comment on above: Performed By: #### A BG ####[facility] Qwwusjbtyf52[address] [place], [place] [address]Dr. Ricardo Rocha FIO2 Normal [facility] Comment on above: Performed By: #### A BG ####[facility] Xwnbeouqpf54[address] [place], [place] [address]Dr. Ricardo Rocha HCO3 (Bld) [Moles/Vol] 21.4 mmol/L Critically low 22.0-26.0 [facility] Comment on above: Performed By: #### A BG ####[facility] Pbxcsqblpe1898 [place] [address]Dr. Ricardo Rocha LPM Normal [facility] Comment on above: Performed By: #### A BG ####[facility] Fhobtruubj174[address] [place], [place] [address]Dr. Ricardo Rocha MINUTE VOLUME Normal [facility] Comment on above: Performed By: #### A BG ####[facility] Kfdyegtmqr59[address] [place], [place] [address]Dr. Ricardo Rocha Oxygen (Bld) [Partial pressure] 66.4 mm[Hg] Critically low 80.0-100.0 [facility] Comment on above: Performed By: #### A BG ####[facility] Ahqvkrwogh199[address] [place], [place] [address]Dr. Ricardo Rocha Oxygen saturation in Blood 94.6 % Critically low 95.0-100.0 [facility] Comment on above: Performed By: #### A BG ####[facility] Mfljlrelro07[address] [place], [place] [address]Dr. Ricardo Rocha PCO2 29.4 mmHg Critically low 35.0-45.0 [facility] Comment on above: Performed By: #### A BG ####[facility] Puiejcxhwb[address] [place], [place] [address]Dr. Ricardo Rocha PEEP Normal [facility] Comment on above: Performed By: #### A BG ####[facility] Ortajlfafq[address] [place], [place] [address]Dr. Ricardo Rocha pH (Bld) 7.436 [pH] Normal 7.350-7.450 [facility] Comment on above: Performed By: #### A BG ####[facility] Zolpgatozg[address] [place], [place] [address]Dr. Ricardo Rocha PIP Normal [facility] Comment on above: Performed By: #### A BG ####[facility] Ouiiatvagu99[address] [place] [address]Dr. Ricardo Rocha PS Normal [facility] Comment on above: Performed By: #### A BG ####[facility] Zhbcvzjbrt5911 [place] [address]Dr. Ricardo Rocha PUNCTURE SITE LR Normal [facility] Comment on above: Performed By: #### A BG ####[facility] Yibhtgknox0658 [place] [address]Dr. Ricardo Rocha RATE Normal [facility] Comment on above: Performed By: #### A BG ####[facility] Bldxvlwjkd8302 [place] [address]Dr. Ricardo Rocha VENT MODE Normal [facility] Comment on above: Performed By: #### A BG ####[facility] Siqttoeogp[address] [place], [place] [address]Dr. Ricardo Rocha [place] [facility] Comment on above: Performed By: #### A BG ####[facility] Kadkvxmqso273[address] [place], [place] [address]Dr. Ricardo Rocha CBC W MANUAL DIFFon 06-10- 22 ATYPICAL LYMPH # Normal [facility] Comment on above: Performed By: #### C BCMAN ####[facility] Gkkgdnqhmh[address] [place], [place] [address]Dr. Ricardo Rocha ATYPICAL LYMPH % Normal [facility] Comment on above: Performed By: #### C BCMAN ####[facility] Kyvperxvzn[address] [place] [address]Dr. Ricardo Rocha BAND # 1.3 103/ul Critically high 0.0-0.3 [facility] Comment on above: Performed By: #### C BCMAN ####[facility] Uvsggfsszc3873 [place] [address]Dr. Ricardo Rocha BAND % 12 % Critically high 0-5 [facility] Comment on above: Performed By: #### C BCMAN ####[facility] Lnwvaigypw5779 [place] [address]Dr. Ricardo Rocha BASOM # 0.00 103/ul Normal 0.00-0.10 [facility] Comment on above: Performed By: #### C BCRED ####[facility] Ltzrcibooq5042 [place] [address]Dr. Ricardo Rocha BASOM % 0.0 % Critically low 0.2-2.0 [facility] Comment on above: Performed By: #### C DWAINE ####[facility] Tinneppbnq4789 [place] [address]Dr. Ricardo Rocha BLAST # Normal [facility] Comment on above: Performed By: #### C BCRED ####[facility] Vdpweyxnxk[address] [place], [place] [address]Dr. Ricardo Rocha BLAST % Normal [facility] Comment on above: Performed By: #### C DWAINE ####[facility] Wsfldttozw[address] [place], [place] [address]Dr. Ricardo Rocha CORRECTED WBC Normal 4.0-11.0 [facility] Comment on above: Performed By: #### C DWAINE ####[facility] Gboxqnjcxk6525[address] [place], [place] [address]Dr. Ricardo Rocha EOS # 0.00 103/ul Normal 0.00-0.70 [facility] Comment on above: Performed By: #### C DWAINE ####[facility] Qdxamyfeiy232[address] [place], [place] [address]Dr. Ricardo Rocha EOS% 0.0 % Critically low 0.9-7.0 [facility] Comment on above: Performed By: #### C BCRED ####[facility] Ngcxepdldp[address] [place], [place] [address]Dr. Ricardo Rocha HCT 35.5 % Critically low 36.0-48.0 [facility] Comment on above: Performed By: #### C BCRED ####[facility] Irmgwtmkgj[address] [place], [place] [address]Dr. Ricardo Rocha HGB 11.4 g/dl Critically low 12.0-16.0 [facility] Comment on above: Performed By: #### C BCRED ####[facility] Ozvneqodny[address] [place], [place] [address]Dr. Ricardo Rocha HYPERSEG NEUT 3+ Normal [facility] Comment on above: Performed By: #### C DWAINE ####[facility] Axeybanjie[address] [place] [phone]. Ricardo Rocha LYMPHM # 0.21 103/ul Critically low 1.20-3.80 [facility] Comment on above: Performed By: #### C DWAINE ####[facility] Zdsxjmzbpq6452 [place] [phone]. Ricardo Rocha LYMPHM% 2.0 % Critically low 20.5-60.0 [facility] Comment on above: Performed By: #### C DWAINE ####[facility] Wnahwbjtgt3512 [place] [phone]. Ricardo Rocha MCH 25.3 pg Critically low 26.7-34.0 [facility] Comment on above: Performed By: #### C DWAINE ####[facility] Euelnogqby7[address] [place] [address]Dr. Ricardo Rocha MCHC 32.1 g/dl Normal 29.9-35.2 [facility] Comment on above: Performed By: #### C DWAINE ####[facility] Zhtmfebmcl7577 [place] [phone]. Ricardo Rocha MCV 78.9 fL Critically low 81.0-99.0 [facility] Comment on above: Performed By: #### C DWAINE ####[facility] Dggyxpwtbh4323 [place] [phone]. Ricardo Rocha METAMYELOCYTE # Normal [facility] Comment on above: Performed By: #### C DWAINE ####[facility] Fmhayvtdgh1613 [place] [phone]. Ricardo Rocha METAMYELOCYTE % Normal [facility] Comment on above: Performed By: #### C DWAINE ####[facility] Rufdpvrnhc8622 [place] [phone]. Ricardo Rocha MONOM# 0.32 103/ul Normal 0.30-0.80 [facility] Comment on above: Performed By: #### C DWAINE ####[facility] Cflemxzqqw5597 [place] [phone]. Ricardo Rocha MONOM% 3.0 % Normal 1.7-12.0 [facility] Comment on above: Performed By: #### C DWAINE ####[facility] Hjsjmrodco2193 [place] [phone]. Ricardo Rocha MPV 10.9 fL Normal 9.5-13.5 [facility] Comment on above: Performed By: #### C DWAINE ####[facility] Xkfsrzzajn1170 [place] [phone]. Ricardo Rocha MYELOCYTE # Normal [facility] Comment on above: Performed By: #### C DWAINE ####[facility] Ezrumjdwia4599 [place] [phone]. Ricardo Rocha MYELOCYTE % Normal [facility] Comment on above: Performed By: #### C DWAINE ####[facility] [address]oyhndwdur[address] [place] [address]Dr. Ricardo Rocha NRBC Normal [facility] Comment on above: Performed By: #### C DWAINE ####[facility] Rohypimfzn1202 [place] [phone]. Ricardo Rocha PLT 180 103/ul Normal 150-450 [facility] Comment on above: Performed By: #### C DWAINE ####[facility] Suhkronhul3201 [place] [phone]. Ricardo Rocha RBC 4.50 106/ul Normal 4.20-5.40 [facility] Comment on above: Performed By: #### C DWAINE ####[facility] Usiadbmjsr4176 [place] [phone]. Ricardo Rocha RDW 12.8 % Normal 11.0-15.0 [facility] Comment on above: Performed By: #### C DWAINE ####[facility] Xorizacjtf9447 [place] [phone]. Ricardo Rocha SEG # 8.71 103/ul Critically high 1.40-6.50 [facility] Comment on above: Performed By: #### C DWAINE ####[facility] Oozyrsrcye6698 [place] [phone]. Ricardo Rocha SEG % 83.0 % Critically high 43.0-75.0 [facility] Comment on above: Performed By: #### C BCMAN ####[facility] Uegnmuwtqb2514 [place] [phone]. Ricardo Rocha TOXIC GRANULATION 2+ Normal [facility] Comment on above: Performed By: #### C BCMAN ####[facility] Mbygpboztg7881 [place] [phone]. Ricardo Rocha WBC 10.5 103/ul Normal 4.0-11.0 [facility] Comment on above: Performed By: #### C DWAINE ####[facility] Udmvjhtnuw4539 [place] [phone]. Ricardo Rocha CULTURE BLOODon 06-10-2022 Microscopic examination of blood, culture Culture Observations: Positive blood culture. Pediatric bottle. Culture Observations: Please refer to for susceptibility testing. Isolate 1 Staphylococcus aureus Growth of Normal [facility] Comment on above: Performed By: #### B LDCX2 ####[facility] Opkhrpzlvv14[address] [place] [address]Dr. Ricardo Rocha LACTATE/LACTIC ACIDon 2021 Lactate [Moles/Vol] 1.9 mmol/L Normal 0.4-1.9 [facility] Comment on above: Performed By: #### L ACT ####[facility] Hpkbrooynb8523 [place] [address]Dr. Ricardo Rocha LIPASEon 06-10-2022 Lipase [Catalytic activity/Vol] 164.0 U/L Normal 73.0-393.0 [facility] Comment on above: Performed By: #### H STROPN, LIPA, CMP, TSH ####[facility] Fvdxeqvejx7676 [place] [address]Dr. Ricardo Rocha POINT OF CARE GLUCOSEon 05-22 Glucose [Mass/Vol] 583 mg/dL Critically high 74-106 [facility] Comment on above: Result Comment: Resu lt Not Confirmed Performed By: #### P OCGLUC ####[facility] Nqeqpaiofv0940 [place] [address]Dr. Ricardo Rocha PROF 14(COMP METB)on 022 Albumin [Mass/Vol] 3.0 g/dL Critically low 3.4-5.0 [facility] Comment on above: Performed By: #### H STROPN, LIPA, CMP, TSH ####[facility] Klynjrtcft7188 [place] [address]Dr. Ricardo Rocha Albumin/Globulin [Mass ratio] 0.5 {ratio} Normal [facility] Comment on above: Performed By: #### H STROPN, LIPA, CMP, TSH ####[facility] [address] [place] [address]Dr. Ricardo Rocha ALP [Catalytic activity/Vol] 116 U/L Normal 46-116 [facility] Comment on above: Performed By: #### H STROPN, LIPA, CMP, TSH ####[facility] [address] [place], [place] [address]Dr. Ricardo Rocha ALT [Catalytic activity/Vol] 15 U/L Normal 14-59 [facility] Comment on above: Performed By: #### H STROPN, LIPA, CMP, TSH ####[facility] [address] [place], [place] [address]Dr. Ricardo Rocha Anion gap [Moles/Vol] 15.7 mmol/L Normal [facility] Comment on above: Performed By: #### H STROPN, LIPA, CMP, TSH ####[facility] [address] [place] [address]Dr. Ricardo Rocha AST [Catalytic activity/Vol] 16 U/L Normal 15-37 [facility] Comment on above: Performed By: #### H STROPN, LIPA, CMP, TSH ####[facility] [address] [place] [address]Dr. Ricardo Rocha Bilirubin [Mass/Vol] 0.5 mg/dL Normal 0.2-1.0 [facility] Comment on above: Performed By: #### H STROPN, LIPA, CMP, TSH ####[facility] [address] [place] [address]Dr. Ricardo Rocha Calcium [Mass/Vol] 9.4 mg/dL Normal 8.5-10.1 [facility] Comment on above: Performed By: #### H STROPN, LIPA, CMP, TSH ####[facility] [address] [place] [address]Dr. Ricardo Rocha Chloride [Moles/Vol] 95 mmol/L Critically low 98-107 [facility] Comment on above: Performed By: #### H STROPN, LIPA, CMP, TSH ####[facility] [address] [place] [address]Dr. Ricardo Rocha CO2 [Moles/Vol] 22.1 mmol/L Normal 21.0-32.0 [facility] Comment on above: Performed By: #### H STROPN, LIPA, CMP, TSH ####[facility] [address] [place], [place] [address]Dr. Ricardo Rocha Creatinine [Mass/Vol] 2.23 mg/dL Critically high 0.55-1.02 [facility] Comment on above: Performed By: #### H STROPN, LIPA, CMP, TSH ####[facility] E[address]xtfixc[address] [place], [place] [address]Dr. Ricardo Rocha EGFR-AF ISRAELI 27 mL/min/1.73m2 Critically low >=60 [facility] Comment on above: Performed By: #### H STROPN, LIPA, CMP, TSH ####[facility] Wyig[address]et[address] [place], [place] [address]Dr. Ricardo Rocha EGFR-NON AF ISRAELI 22 mL/min/1.73m2 Critically low >=60 [facility] Comment on above: Performed By: #### H STROPN, LIPA, CMP, TSH ####[facility] [address]xsxcm[address] [place], [place] [address]Dr. Ricardo Rocha Globulin (S) [Mass/Vol] 6.5 g/dL Normal [facility] Comment on above: Performed By: #### H STROPN, LIPA, CMP, TSH ####[facility] [address] [place] [address]Dr. Ricardo Rocha Glucose [Mass/Vol] 593 mg/dL Critically high 74-106 [facility] Comment on above: Performed By: #### H STROPN, LIPA, CMP, TSH ####[facility] [address] [place] [address]Dr. Ricardo Rocha Potassium [Moles/Vol] 3.8 mmol/L Normal 3.5-5.1 [facility] Comment on above: Performed By: #### H STROPN, LIPA, CMP, TSH ####[facility] [address] [place] [address]Dr. Ricardo Rocha Protein [Mass/Vol] 9.5 g/dL Critically high 6.4-8.2 [facility] Comment on above: Performed By: #### H STROPN, LIPA, CMP, TSH ####[facility] [address] [place], [place] [address]Dr. Ricardo Rocha Sodium [Moles/Vol] 129 mmol/L Critically low 136-145 [facility] Comment on above: Performed By: #### H STROPN, LIPA, CMP, TSH ####[facility] [address] [place], [place] [address]Dr. Ricardo Rocha Urea nitrogen [Mass/Vol] 40.0 mg/dL Critically high 7.0-18.0 [facility] Comment on above: Performed By: #### H STROPN, LIPA, CMP, TSH ####[facility] [address] [place], [place] [address]Dr. Ricardo Rocha Urea nitrogen/Creatinine [Mass ratio] 17.9 mg/mg Normal [facility] Comment on above: Performed By: #### H STROPN, LIPA, CMP, TSH ####[facility] [address] [place], [place] [address]Dr. Ricardo Rocha PROTIMEon 06-10-2022 INR Coag (PPP) [Relative time] 1.00 {INR} Normal [facility] Comment on above: Performed By: #### P TT, PT ####[facility] [address] [place] [address]Dr. Ricardo Rocha INR GUIDELINES SEE BELOW Normal [facility] Comment on above: Result Comment: AMBROSIO RED INR: 2.0 - 3.0 CONDITIONS NOT LISTED BELOW 2.5 - 3.5 FOR PROSTHETIC HEART VALVE REPLACEMENT 2.5 - 3.5 RECURRENT THROMBOSIS Performed By: #### P TT, PT ####[facility] [address] [place] [address]Dr. Ricardo Rocha PT Coag (PPP) [Time] 10.8 s Normal 9.0-11.6 [facility] Comment on above: Performed By: #### P TT, PT ####[facility] [address] [place] [address]Dr. Ricardo Rocha PTTon 06-10-2022 aPTT Coag (Bld) [Time] 31.7 s Normal 22.3-36.2 [facility] Comment on above: Performed By: #### P TT, PT ####[facility] [address] [place], [place] [address]Dr. Ricardo Rocha TROPONIN, HIGH SENSITIVITYon 06-10-2022 HSTROP 30.9 pg/mL Normal 4.0-51.3 [facility] Comment on above: Result Comment: CUT- OFF POINTS HAVE BEEN ESTABLISHED BASED ON THE FOURTH UNIVERSAL DEFINITIONS OF MYOCARDIALINFARCTION. THE UPPER REFERENCE LIMIT (URL) OF TROPONIN, DEFINED THE 99TH PERCENTILE OFcTnI DISTRIBUTION IN A REFERENCE POPULATION, HAS BEEN CONFIRMED THE DECISION THRESHOLDFOR OR DIAGNOSIS. Performed By: #### H STROPN, LIPA, CMP, TSH ####[facility] [address] [place] [address]Dr. Ricardo Rocha TSHon 06-10-2022 TSH 0.147 uIU/mL Critically low 0.358-3.740 [facility] Comment on above: Performed By: #### H STROPN, LIPA, CMP, TSH ####[facility] [address] [place] [address]Dr. Ricardo Rocha XR FOOT ALINE MIN 3 VIEWSon XR FOOT ALINE MIN 3 VIEWS Normal [facility] XR HAND RT MIN 3Von 06-02-20 22 XR HAND RT MIN 3V Normal [facility] CULTURE WOUNDon 05-15-2022 CULTURE WOUND Normal [facility] Comment on above: Performed By: #### W OUNDCX ####[facility] [address] [place] [address]Dr. Ricardo Rocha CBC AUTO DIFFon 2022 BASO # 0.0 103/ul Normal 0.0-0.1 [facility] Comment on above: Performed By: #### C BC ####[facility] [address] [place] [address]Dr. Ricardo Aj Basophils/100 WBC (Bld) 0.7 % Normal 0.2-2.0 [facility] Comment on above: Performed By: #### C BC ####[facility] [address] [place], [place] [address]Dr. Ricardo Rocha EO # 0.1 103/ul Normal 0.0-0.7 [facility] Comment on above: Performed By: #### C BC ####[facility] [address] [place], [place] [address]Dr. Ricardo Rocha Eosinophils/100 WBC (Bld) 2.1 % Normal 0.9-7.0 [facility] Comment on above: Performed By: #### C BC ####[facility] [address]qf[address] [place], [place] [address]Dr. Ricardo Rocha Erythrocyte distribution width (RBC) [Ratio] 13.2 % Normal 11.0-15.0 [facility] Comment on above: Performed By: #### C BC ####[facility] By[address]usuy[address] [place], [place] [address]Dr. Ricardo Rocha Hematocrit (Bld) [Volume fraction] 36.6 % Normal 36.0-48.0 [facility] Comment on above: Performed By: #### C BC ####[facility] [address] [place], [place] [address]Dr. Ricardo Rocha Hemoglobin (Bld) [Mass/Vol] 11.9 g/dL Critically low 12.0-16.0 [facility] Comment on above: Performed By: #### C BC ####[facility] [address] [place] [id number]. Ricardo Rocha IG # 0.03 10e3/ul Normal 0.00-0.03 [facility] Comment on above: Performed By: #### C BC ####[facility] [address]rhi[address] [place] [id number]. Ricardo Rocha IG % 0.5 % Normal 0.0-0.5 [facility] Comment on above: Performed By: #### C BC ####[facility] [address] [place] [id number]. Ricardo Rocha LYMPH # 2.1 103/ul Normal 1.2-3.8 [facility] Comment on above: Performed By: #### C BC ####[facility] [address] [place] [address]Dr. Ricardo Rocha Lymphocytes/100 WBC (Bld) 33.8 % Normal 20.5-60.0 [facility] Comment on above: Performed By: #### C BC ####[facility] [address] [place] [address]Dr. Ricardo Rocha MANUAL DIFF REQ NO Normal [facility] Comment on above: Performed By: #### C BC ####[facility] [address] [place] [id number]. Ricardo Rocha MCH (RBC) [Entitic mass] 25.7 pg Critically low 26.7-34.0 [facility] Comment on above: Performed By: #### C BC ####[facility] [address]oplevocy[address] [place] [id number]. Ricardo Rocha MCHC (RBC) [Mass/Vol] 32.5 g/dL Normal 29.9-35.2 [facility] Comment on above: Performed By: #### C BC ####[facility] [address]yd[address] [place] [id number]. Ricardo Rocha MCV (RBC) [Entitic vol] 79.0 fL Critically low 81.0-99.0 [facility] Comment on above: Performed By: #### C BC ####[facility] [address] [place] [id number]. Ricardo Rocha MONO # 0.4 103/ul Normal 0.3-0.8 [facility] Comment on above: Performed By: #### C BC ####[facility] [address] [place] [id number]. Ricardo Rocha Monocytes/100 WBC (Bld) 6.2 % Normal 1.7-12.0 [facility] Comment on above: Performed By: #### C BC ####[facility] [address] [place] [id number]. Ricardo Rocha NEUT # 3.5 103/ul Normal 1.4-6.5 [facility] Comment on above: Performed By: #### C BC ####[facility] [address]xucwt[address] [place] [id number]. Ricardo Rocha Neutrophils/100 WBC (Bld) 56.7 % Normal 43.0-75.0 [facility] Comment on above: Performed By: #### C BC ####[facility] [address] [place] [id number]. Ricardo Rocha Platelet mean volume (Bld) [Entitic vol] 10.9 fL Normal 9.5-13.5 [facility] Comment on above: Performed By: #### C BC ####[facility] [address]wd[address] [place] [id number]. Ricardo Rocha PLT 241 103/ul Normal 150-450 [facility] Comment on above: Performed By: #### C BC ####[facility] [address] [place], [place] [address]Dr. Ricardo Rocha RBC 4.63 106/ul Normal 4.20-5.40 [facility] Comment on above: Performed By: #### C BC ####[facility] Pwpkgfupxx[address] [place] [id number]. Ricardo Rocha WBC 6.1 103/ul Normal 4.0-11.0 [facility] Comment on above: Performed By: #### C BC ####[facility] T[address]hty[address] [place] [address]Dr. Nanomarcial Rocha PROF CHEM 8 (BAS METB)on Anion gap [Moles/Vol] 11.8 mmol/L Normal [facility] Comment on above: Performed By: #### B MP ####[facility] [address] [place], [place] [address]Dr. Ricardo Rocha Calcium [Mass/Vol] 9.2 mg/dL Normal 8.5-10.1 [facility] Comment on above: Performed By: #### B MP ####[facility] [address]ptf[address] [place], [place] [address]Dr. Ricardo Rocha Chloride [Moles/Vol] 99 mmol/L Normal 98-107 [facility] Comment on above: Performed By: #### B MP ####[facility] [address] [place], [place] [address]Dr. Ricardo Rocha CO2 [Moles/Vol] 24.7 mmol/L Normal 21.0-32.0 [facility] Comment on above: Performed By: #### B MP ####[facility] [address]rx[address]xq[address] [place], [place] [address]Dr. Ricardo Rocha Creatinine [Mass/Vol] 1.48 mg/dL Critically high 0.55-1.02 [facility] Comment on above: Performed By: #### B MP ####[facility] [address]ermyc[address] [place], [place] [address]Dr. Ricardo Rocha EGFR-AF ISRAELI 43 mL/min/1.73m2 Critically low >=60 [facility] Comment on above: Performed By: #### B MP ####[facility] [address] [place], [place] [address]Dr. Ricardo Rocha EGFR-NON AF ISRAELI 36 mL/min/1.73m2 Critically low >=60 [facility] Comment on above: Performed By: #### B MP ####[facility] [address] [place], [place] [address]Dr. Ricardo Rocha Glucose [Mass/Vol] 431 mg/dL Critically high 74-106 [facility] Comment on above: Performed By: #### B MP ####[facility] Yczoysvczm[address] [place] [id number]. Ricardo Rocha Potassium [Moles/Vol] 4.5 mmol/L Normal 3.5-5.1 [facility] Comment on above: Performed By: #### B MP ####[facility] [address]ft[address]bu[address] [place] [id number]. Ricardo Rocha Sodium [Moles/Vol] 131 mmol/L Critically low 136-145 [facility] Comment on above: Performed By: #### B MP ####[facility] V[address]wnzx[address]xh[address] [place] [id number]. Ricardo Rocha Urea nitrogen [Mass/Vol] 23.0 mg/dL Critically high 7.0-18.0 [facility] Comment on above: Performed By: #### B MP ####[facility] [address] [place], [place] [address]Dr. Nanomarcial Rocha Urea nitrogen/Creatinine [Mass ratio] 15.5 mg/mg Normal [facility] Comment on above: Performed By: #### B MP ####[facility] [address] [place], [place] [address]Dr. Ricardo Rocha XR TOES ALINE MIN 2 Von 2021 XR TOES ALINE MIN 2 V Normal [facility] HEALTH 01-21-2021 ALLIED HEALTH HNO ID: [id number] Author: RT Parveen(R) Service: ? Author Type: Epic Anesthesia Analyst Type: Allied Health Filed: 01/20/2021 10:30 PM [...] RELEVANT IMPLANT DATA REVIEWED: Yes RADIOLOGY DEPARTMENT: ; Exam(s) Completed: Body: Renal PERIPHERAL IV DATA: Inpatient: see LDA documentation SIGNED BY: Joy Angeles RT(R) January 20, 2021 10:29 PM Normal [facility] Basic Metabolic Panlon 01-21 Anion gap [Moles/Vol] 7 mmol/L Low 9-18 [facility] Calcium [Mass/Vol] 8.8 mg/dL Normal 8.5-10.2 [facility] Chloride [Moles/Vol] 99 mmol/L Normal 97-105 [facility] CO2 [Moles/Vol] 25 mmol/L Normal 22-30 [facility] Creatinine [Mass/Vol] 1.51 mg/dL High 0.58-0.96 [facility] eGFR- Amer. 42 Normal [facility] ospital eGFR-All Other Races 35 . Normal [facility] Comment on above: Result Comment: eGFR [...] ospital Comment on above: Result Comment: The [place] Diabetes Association (ADA) provides guidance for cutoff [...] Standards of Medical Care in Diabetes 2016, [place] [employer]. Diabetes Care. 2016.39(Suppl 1). Potassium [Moles/Vol] 4.7 mmol/L Normal 3.7-5.1 [facility] Sodium [Moles/Vol] 131 mmol/L Low 136-144 [facility] Urea nitrogen [Mass/Vol] 42 mg/dL High 7-21 [facility] CBCon 01-21-2021 Absolute nRBC <0.01 [facility]0.01 [facility]th[facility] width (RBC) [Ratio] 13.1 % Normal 11.5-15.0 [facility] Hematocrit (Bld) [Volume fraction] 30.0 % Low 36.0-46.0 [facility] Hemoglobin (Bld) [Mass/Vol] 9.5 g/dL Low 11.5-15.5 [facility] MCH 24.4 pG Low 26.0-34.0 [facility] MCHC (RBC) [Mass/Vol] 31.7 g/dL Normal 30.5-36.0 [facility] MCV (RBC) [Entitic vol] 77.1 fL Low 80.0-100.0 [facility] Platelet mean volume (Bld) [Entitic vol] 11.1 fL Normal 9.0-12.7 [facility] Platelets (Bld) [#/Vol] 358 10*3/uL Normal 150-400 [facility] RBC (Bld) [#/Vol] 3.89 10*6/uL Low 3.90-5.20 [facility] WBC (Bld) [#/Vol] 9.64 10*3/uL Normal 3.70-11.00 [facility] CNDSon 01-21-2021 CNDS HNO ID: [id number] Author: Inna Hansen DO Service: Hospital Medicine [...] Team: Attending Provider: Inna Hansen DO Physician Operations Research Scientist: Garrett Simon PA-C Consulting: Taurus Ballard MD [...] PCP: referred to a new PCP in [place]. Future Appointments Date Time Provider Department Center 01/29/2021 11:40 AM Taurus Ballard MD [facility] The patient's risk for 30-day readmission is determined using the following contributing factors: Pt variables contributing to increased readmission risk: 42 Most Recent (more content not included)... Normal [facility] MRI KIDNEY WO/W IVCONon 06-0 MRI [...] included: axial precontrast T1 weighted in- and zhi-tn-twkap, axial and coronal HASTE, axial DWI with [...] be communicated with the ordering provider via imbookin ([employer]) staff message or phone message by Imaging Support Services within 2 business days of report finalization. Algorithms for management of incidental imaging findings can be found on the [facility] Intranet Sharepoint site at: [email or web address] Managing%20Incidental%2 0Findi ngs%20at%20Imaging/Form s/AllItems.aspx Producer Director: GUILLE Transcribe Date/Time: Jan 21 2021 8:17A Dictated by : MALLORY AHN MD This examination was interpreted and the report reviewed and electronically signed by: MALLORY AHN MD on Jan 21 2021 8:49AM EST [id number] ACTIONABLE Invalid Interpretation Code [facility] Basic Metabolic Panlon 01-20 Anion gap [Moles/Vol] 11 mmol/L Normal 9-18 [facility] Calcium [Mass/Vol] 8.7 mg/dL Normal 8.5-10.2 [facility] Chloride [Moles/Vol] 97 mmol/L Normal 97-105 [facility] CO2 [Moles/Vol] 24 mmol/L Normal 22-30 [facility] Creatinine [Mass/Vol] 1.46 mg/dL High 0.58-0.96 [facility] eGFR- Amer. 44 Normal [facility] ospital eGFR-All Other Races 36 . Normal [facility] Comment on above: Result Comment: eGFR [...] GFR. Glucose [Mass/Vol] 149 mg/dL High 74-99 [facility] Comment on above: Result Comment: The [place] Diabetes [employer] (ADA) provides guidance for cutoff [...] Standards of Medical Care in Diabetes 2016, [place] [employer]. Diabetes Care. 2016.39(Suppl 1). Potassium [Moles/Vol] 3.9 mmol/L Normal 3.7-5.1 [facility] Sodium [Moles/Vol] 132 mmol/L Low 136-144 [facility] ospital Urea nitrogen [Mass/Vol] 53 mg/dL High 7-21 [facility] CBCon 01-20-2021 Absolute nRBC <0.01 Normal <0.01 [facility] al Erythrocyte distribution width (RBC) [Ratio] 12.8 % Normal 11.5-15.0 [facility] Hematocrit (Bld) [Volume fraction] 27.7 % Low 36.0-46.0 [facility] Hemoglobin (Bld) [Mass/Vol] 8.9 g/dL Low 11.5-15.5 [facility] MCH 24.5 pG Low 26.0-34.0 [facility] MCHC (RBC) [Mass/Vol] 32.1 g/dL Normal 30.5-36.0 [facility] MCV (RBC) [Entitic vol] 76.3 fL Low 80.0-100.0 [facility] Platelet mean volume (Bld) [Entitic vol] 11.1 fL Normal 9.0-12.7 [facility] Platelets (Bld) [#/Vol] 321 10*3/uL Normal 150-400 [facility] RBC (Bld) [#/Vol] 3.63 10*6/uL Low 3.90-5.20 [facility] WBC (Bld) [#/Vol] 11.05 10*3/uL High 3.70-11.00 [facility] CONSULT PROGon 01-20-2021 CONSULT PROG HNO ID: [id number] Author: Rajendra Cruz MD Service: Nephrology Author Type: Physician Type: Consult Progress Note Filed: 01/20/2021 1:44 PM Note Text: [facility] NEPHROLOGY CONSULT PROGRESS NOTE SERVICE DATE: [...] call with further questions or concerns. SIGNATURE: Raejndra Chavarria MD PATIENT NAME: Aislinn Wheeler DATE: January 20, 2021 1:43 PM PHONE: [phone] FOR AFTER HOUR CONCERNS BETWEEN 7PM - 7AM CONTACT ON-CALL NEPHROLOGY STAFF [facility] THERAPY [facility] 01-20-2021 THERAPY HNO ID: [id number] Author: Afia Radford, PT Service: Physical Therapy Author Type: Physical Therapist Type: Therapy (PT/OT/Speech/Resp) Filed: 01/20/2021 3:32 PM Note Text: Physical Therapy Treatment SERVICE DATE: 01/20/2021 SERVICE TIME: 1330 to 1353 ROOM: [place] [address] Recommended Discharge Disposition: Home PT Recommended Discharge [...] 0 Tub/Shower Type: tub shower Laundry: basement, ardtziha-gd-uzg Equipment Owned: Cane;Standard Walker Prior Functional Level: [...] Deviations/Observations : Loss of Balance;Lateral sway increased -HLM: 7: Walk 25 feet or more [...] Diagnosis: Reduced mobility-other Interventions Provided: Gait Training (77271);Therapeutic Exercise (53827) Therapeutic Exercise (17864) Treatment Minutes: 8 Pt performed in supine position: AP, QS, GS x 10 B LE, pt instructed to do every hour while awake on their own. 7 days a week, HS, hip ABD, SAQ, SLR 10-20 reps/ 2-3x/day/ 7 days/week Gait Training (85898) Treatment Minutes: 15 $ Gait Training (25729) Billed Units: 1 unit Training AND education [...] 20, 2021 TIME: (more content not included)... [facility] THERAPY NT HNO ID: [id number] Author: Heidy Wright OT/L Service: Occupational Therapy Author Type: Occupational Therapist Type: Therapy (PT/OT/Speech/Resp) Filed: 01/20/2021 12:15 PM Note Text: Occupational Therapy Treatment SERVICE DATE: 01/20/2021 SERVICE TIME: 1155 to 1205 ROOM: [place] [address] Recommended Discharge Disposition: Home OT Recommended Discharge [...] 0 Tub/Shower Type: tub shower Laundry: basement, yzwqqwod-tu-dai Equipment Owned: Cane;Standard Walker Prior Functional Level: [...] (generalized);General symptoms and signs-other Interventions Provided: Self Assisted Management (55542) Self Assisted Management (37035) Treatment Minutes: 10 $ Self Assisted Management (62099) Billed Units: 1 unit Training AND education provided in: Benefits of in (more content not included)... Normal [facility] THERAPY NT HNO ID: [id number] Author: Heidy Wright OT/Broderick Service: Occupational Therapy Author Type: Occupational Therapist Type: Therapy (PT/OT/Speech/Resp) Filed: 01/20/2021 8:24 AM Note Text: OCCUPATIONAL THERAPY MISSED VISIT SERVICE DATE: 01/20/2021 SERVICE TIME: 0820 to 0820 ROOM: [place] [address] Attempted Treatment. Patient not seen due to Declined. Pt states, It's too early when OT attempted to work with her. Will re-attempt as schedule permits. SIGNATURE: Heidy Wright OT/Broderick PATIENT NAME: Aislinn Wheeler DATE: January 20, 2021 TIME: 8:24 AM Normal [facility] Basic Metabolic Panlon 01-19 Anion gap [Moles/Vol] 11 mmol/L Normal 9-18 [facility] Calcium [Mass/Vol] 8.5 mg/dL Normal 8.5-10.2 [facility] Chloride [Moles/Vol] 93 mmol/L Low 97-105 [facility] CO2 [Moles/Vol] 24 mmol/L Normal 22-30 [facility] Creatinine [Mass/Vol] 1.92 mg/dL High 0.58-0.96 [facility] eGFR- Amer. 32 Normal [facility] ospital eGFR-All Other Races 26 . Normal [facility] Comment on above: Result Comment: eGFR [...] GFR. Glucose [Mass/Vol] 268 mg/dL High 74-99 [facility] Comment on above: Result Comment: The [place] [employer] (ADA) provides guidance for cutoff [...] Standards of Medical Care in Diabetes 2016, [place] [employer]. Diabetes Care. 2016.39(Suppl 1). Potassium [Moles/Vol] 4.2 mmol/L Normal 3.7-5.1 [facility] Sodium [Moles/Vol] 128 mmol/L Low 136-144 [facility] Urea nitrogen [Mass/Vol] 77 mg/dL High 7-21 [facility] Anion gap [Moles/Vol] 11 mmol/L Normal 9-18 [facility] Calcium [Mass/Vol] 8.3 mg/dL Low 8.5-10.2 [facility] Chloride [Moles/Vol] 88 mmol/L Low 97-105 [facility] CO2 [Moles/Vol] 23 mmol/L Normal 22-30 [facility] Creatinine [Mass/Vol] 1.93 mg/dL High 0.58-0.96 [facility] eGFR- Amer. 32 Normal [facility] eGFR-All Other Races 26 . Normal [facility] Comment on above: Result Comment: eGFR [...] GFR. Glucose [Mass/Vol] 292 mg/dL High 74-99 [facility] Comment on above: Result Comment: The [place] Diabetes [employer] (ADA) provides guidance for cutoff [...] Standards of Medical Care in Diabetes 2016, [place] [employer]. Diabetes Care. 2016.39(Suppl 1). Potassium [Moles/Vol] 3.8 mmol/L Normal 3.7-5.1 [facility] Sodium [Moles/Vol] 122 mmol/L Low 136-144 [facility] Urea nitrogen [Mass/Vol] 82 mg/dL High 7-21 [facility] CBCon 01-19-2021 Absolute nRBC <0.01 [facility]0.01 [facility] E[facility]th[facility] distribution width (RBC) [Ratio] 12.8 % Normal 11.5-15.0 [facility] Hematocrit (Bld) [Volume fraction] 27.5 % Low 36.0-46.0 [facility] Hemoglobin (Bld) [Mass/Vol] 9.1 g/dL Low 11.5-15.5 [facility] MCH 24.9 pG Low 26.0-34.0 [facility] MCHC (RBC) [Mass/Vol] 33.1 g/dL Normal 30.5-36.0 [facility] MCV (RBC) [Entitic vol] 75.1 fL Low 80.0-100.0 [facility] Platelet mean volume (Bld) [Entitic vol] 11.2 fL Normal 9.0-12.7 [facility] Platelets (Bld) [#/Vol] 297 10*3/uL Normal 150-400 [facility] RBC (Bld) [#/Vol] 3.66 10*6/uL Low 3.90-5.20 [facility] WBC (Bld) [#/Vol] 12.14 10*3/uL High 3.70-11.00 [facility] CONSULT PROGon 01-19-2021 CONSULT PROG HNO ID: [id number] Author: Rajendra Cruz MD Service: Nephrology Author Type: Physician Type: Consult Progress Note Filed: 01/19/2021 2:40 PM Note Text: [facility] NEPHROLOGY CONSULT PROGRESS NOTE SERVICE DATE: [...] DATE: January 19, 2021 2:27 PM PHONE: [phone] FOR AFTER HOUR CONCERNS BETWEEN 7PM - 7AM CONTACT ON-CALL NEPHROLOGY STAFF [facility] 01-19-2021 NUTRITION HNO ID: [id number] Author: Michelle Louis RD Service: Nutrition Therapy [...] history;Intake records;Patient/family self-report;Weight loss;Nausea;Vomiting Estimated kilocalorie needs: 5828-1767 Calorie Calculation Method: 30-35 kcals/kg Estimated protein [...] January 19, 2021 TIME: 10:59 AM PAGER: [phone] I have reviewed the nutritional assessment note documented by the software developer intern and I personally participated in the miller components. I have discussed the case and nutritional management of the patient's care. Michelle Louis MS,RD,LD,[facility] Normal [facility] THERAPY NTon 01-19-2021 THERAPY NT HNO ID: [id number] Author: Afia Radford, PT Service: Physical Therapy Author Type: Physical Therapist Type: Therapy (PT/OT/Speech/Resp) Filed: 01/19/2021 2:57 PM Note Text: Physical Therapy Evaluation SERVICE DATE: 01/19/2021 SERVICE TIME: 1307 to 1331 ROOM: [place] [address] Recommended Discharge Disposition: Home PT Anticipated Discharge [...] 0 Tub/Shower Type: tub shower Laundry: basement, [id number] Equipment Owned: Cane;Standard Walker Prior Functional Level: [...] Diagnosis: Reduced mobility-other Interventions Provided: Evaluation;Therapeutic Exercise (19293);Gait Training (86201) $ Evaluation-Low (40665) Billed Units: 1 unit Therapeutic Exercise (41570) Treatment Minutes: 1 Patient performed in seated position: Marching, AP/HR, hip ABD, LAQ x10 B LE- instructions written on white board for pt to complete on her own. Gait Training (45924) Treatment Minutes: 8 $ Gait Training (69661) Billed Units: 1 unit Training AND education [...] present during visit: Aleksander Syed, DELFIN Normal [facility] Basic Metabolic Panlon 01-18 Anion gap [Moles/Vol] 13 mmol/L Normal 9-18 [facility] Calcium [Mass/Vol] 8.8 mg/dL Normal 8.5-10.2 [facility] Chloride [Moles/Vol] 88 mmol/L Low 97-105 [facility] CO2 [Moles/Vol] 22 mmol/L Normal 22-30 [facility] Creatinine [Mass/Vol] 2.21 mg/dL High 0.58-0.96 [facility] eGFR- Amer. 27 Normal [facility] ospital eGFR-All Other Races 23 . Normal [facility] Comment on above: Result Comment: eGFR [...] GFR. Glucose [Mass/Vol] 253 mg/dL High 74-99 [facility] Comment on above: Result Comment: The [place] Diabetes [employer] (ADA) provides guidance for cutoff [...] Standards of Medical Care in Diabetes 2016, [place] [employer]. Diabetes Care. 2016.39(Suppl 1). Potassium [Moles/Vol] 3.7 mmol/L Normal 3.7-5.1 [facility] Sodium [Moles/Vol] 123 mmol/L Low 136-144 [facility] Urea nitrogen [Mass/Vol] 93 mg/dL High 7-21 [facility] Anion gap [Moles/Vol] 16 mmol/L Normal 9-18 [facility] Calcium [Mass/Vol] 9.0 mg/dL Normal 8.5-10.2 [facility] Chloride [Moles/Vol] 93 mmol/L Low 97-105 [facility] CO2 [Moles/Vol] 21 mmol/L Low 22-30 [facility] Creatinine [Mass/Vol] 2.59 mg/dL High 0.58-0.96 [facility] eGFR- Amer. 23 Normal [facility] eGFR-All Other Races 19 . Normal [facility] Comment on above: Result Comment: eGFR [...] GFR. Glucose [Mass/Vol] 130 mg/dL High 74-99 [facility] Comment on above: Result Comment: The [place] Diabetes [employer] (ADA) provides guidance for cutoff [...] Standards of Medical Care in Diabetes 2016, [place] [employer]. Diabetes Care. 2016.39(Suppl 1). Potassium [Moles/Vol] 4.7 mmol/L Normal 3.7-5.1 [facility] Sodium [Moles/Vol] 130 mmol/L Low 136-144 [facility] Urea nitrogen [Mass/Vol] 97 mg/dL High 7-21 [facility] CASE MGT INIT Jay 2020 CASE MGT INIT PIERRE HNO ID: [id number] Author: Nicol Landin RN Service: ? 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 Stated Goals: To have reduction in pain;To [...] scheduled Advance Directive: Current Advance Directive: None Cafeteria Counter Attendant Attempted to Assist with AD Completion: Yes [...] Walker Has the Patient Been in a Shelter Facility in the Past 30 days?: No [...] and plan for meeting these needs: Patient's jseirrsa-zf-vds and son live close by and come over to help often Patient's perception of need for this admission: necessary Medication Adherance I am convinced of the importance of my prescription medication: 0 - Agree Completely I worry that my prescription medication will do more harm than good to me : 0 - Disagree Completely I feel financially burdened by my pnb-ar-otnnmt expenses for my prescription medication:: 0 - Disagree Completely Risk Score: 0 Patient is categorized as: Low risk < 2 Are you interested in bedside delivery of your medications? Yes Is Patient Psychosocially Complex?: Yes, refer to Social Work ASSESSMENT AND PLAN: Medical Needs: Medical Needs: Two or more chronic diseases Psychosocial Needs: Psychosocial Needs: None FREEDOM OF CHOICE EXPLAINED: Curtis of Choice Given: No Reason Not Given: [...] and hospitalized about 1 month ago in [place] but no resolution of her symptoms. She [...] 18, 2021 TIME: 10:51 AM PAGER/CONTACT #: [phone] Normal [facility] CBCon 01-18-2021 Absolute nRBC <0.01 Normal <0.01 [facility] Erythrocyte distribution width (RBC) [Ratio] 13.0 % Normal 11.5-15.0 [facility] Hematocrit (Bld) [Volume fraction] 31.2 % Low 36.0-46.0 [facility] Hemoglobin (Bld) [Mass/Vol] 9.9 g/dL Low 11.5-15.5 [facility] MCH 24.4 pG Low 26.0-34.0 [facility] MCHC (RBC) [Mass/Vol] 31.7 g/dL Normal 30.5-36.0 [facility] MCV (RBC) [Entitic vol] 77.0 fL Low 80.0-100.0 [facility] Platelet mean volume (Bld) [Entitic vol] 10.8 fL Normal 9.0-12.7 [facility] l Platelets (Bld) [#/Vol] 310 10*3/uL Normal 150-400 [facility] RBC (Bld) [#/Vol] 4.05 10*6/uL Normal 3.90-5.20 [facility] WBC (Bld) [#/Vol] 17.03 10*3/uL High 3.70-11.00 [facility] CONSULTon 01-18-2021 CONSULT HNO ID: [id number] Author: Annie Trinidad DO Service: Hypertension AND [...] Noted a no-show appointment to urology at [facility]. She also reports that she [...] for n (more content not included)... Normal [facility] CONSULT HNO ID: [id number] Author: Taurus Ballard MD Service: Urology Author Type: Physician Type: Consults Filed: 01/18/2021 8:27 AM Note Text: [facility] UROLOGY CONSULT NOTE [...] the pa (more content not included)... Normal [facility] Creatinine,Urine,Ranon 01-18 Creatinine,Urine,Ran 33.5 mg/dL Normal 20-300 [facility] Comment on above: Performed By: #### U FRANK ARGUELLO UCRR ####[facility] [place], [place] [phone] Magnesiumon 01-18-2021 Magnesium [Mass/Vol] 1.9 mg/dL Normal 1.7-2.3 [facility] NURSING PROGon 01-18-2021 NURSING PROG HNO ID: [id number] Author: Barbara Spicer RN Service: ? Author Type: Registered Nurse Type: Nursing Progress Note Filed: 01/18/2021 10:28 AM Note Text: Nursing Progress Note Patient Name: Aislinn Wheeler Patient Location: [facility] Daily Note:pt report given to pete LE. Pt VSS. Pt belongings packed. This note was completed by: Barbara Spicer Normal [facility] Osmolalityon 01-18-2021 Osmolality [Osmolality] 298 mosm/kg Normal 275-300 [facility] Comment on above: Performed By: #### O SM ####[facility] [place], [place] [phone] Osmolality, Urineon 01-19-20 21 Osmolality, Urine 273 mOsm/kg Normal 50-1200 [facility] Comment on above: Performed By: #### U FRANK ARGUELLO, UCRR ####[facility] [place], [place] [phone] Sepsis Lactateon 01-18-2021 Sepsis Lactate 0.9 mmol/L Normal <2.1 [facility] Sodium,Urine,Randomon 2020 Sodium (U) [Moles/Vol] 32 mmol/L Normal 14-216 [facility] Comment on above: Performed By: #### U SAUNDRA, UOSM, UCRR ####[facility] [address] [place], [place] [phone] THERAPY NTon 01-18-2021 THERAPY NT HNO ID: [id number] Author: Wendy Montes De Oca OT/L Service: Occupational Therapy Author Type: Occupational Therapist Type: Therapy (PT/OT/Speech/Resp) Filed: 01/18/2021 1:10 PM Note Text: Occupational Therapy Evaluation SERVICE DATE: 01/18/2021 SERVICE TIME: 853 to 914 ROOM: [place] [address] Recommended Discharge Disposition: Home OT Recommended Discharge [...] 0 Tub/Shower Type: tub shower Laundry: basement, [id number] Equipment Owned: Cane;Standard Walker CURRENT FUNCTIONAL STATUS: [...] and signs-other Interventions Provided: Evaluation $ Evaluation-Moderate (87928) Billed Units: 1 unit Training and education [...] January 18, 2021 TIME: 1:06 PM Normal [facility] Urine Cultureon 01-18-2021 Bacteria identified Cx Nom (U) Sp. Request/Comment: - Specimen received in preservative Culture Result - No growth (<1,000 CFU/ml) Normal [facility] Comment on above: Performed By: #### U RCUL ####[address] [phone] Blood Cultureon 01-17-2021 Bacteria identified Cx Nom (Bld) Culture Result - No growth 5 days Normal [facility] Comment on above: Performed By: #### B LCUL ####[place] [id number] [place], [place] [phone] C-Reactive Proteinon 021 C-Reactive Protein 32.4 mg/dL High <0.9 [facility]ital Comment on above: Performed By: #### W SR ####[address] [phone] CBC and Differentialon 01-17 Abs Baso <0.03 Normal <0.11 [facility] Abs Eosin <0.03 Normal <0.46 [facility] Abs [place] 0.73 k/uL Normal <0.87 [facility] Abs Neut 14.70 k/uL High 1.45-7.50 [facility] Absolute nRBC <0.01 Normal <0.01 [facility] Basophils/100 WBC (Bld) 0.1 % Normal [facility] DTYPE Auto Diff Normal [facility] Eosinophils/100 WBC (Bld) 0.0 % Normal [facility] Erythrocyte distribution width (RBC) [Ratio] 13.1 % Normal 11.5-15.0 [facility] Hematocrit (Bld) [Volume fraction] 35.1 % Low 36.0-46.0 [facility] Hemoglobin (Bld) [Mass/Vol] 11.3 g/dL Low 11.5-15.5 [facility] Lymphocytes (Bld) [#/Vol] 1.88 10*3/uL Normal 1.00-4.00 [facility] Lymphocytes/100 WBC (Bld) 10.8 % Normal [facility] MCH 24.2 pG Low 26.0-34.0 [facility] MCHC (RBC) [Mass/Vol] 32.2 g/dL Normal 30.5-36.0 [facility] MCV (RBC) [Entitic vol] 75.2 fL Low 80.0-100.0 [facility] Monocytes/100 WBC (Bld) 4.2 % Normal [facility] Neutrophils/100 WBC (Bld) 84.9 % Normal [facility] NRBCs 0.0 /100 WBC Normal 0 [facility] l Platelet mean volume (Bld) [Entitic vol] 11.4 fL Normal 9.0-12.7 [facility] l Platelets (Bld) [#/Vol] 345 10*3/uL Normal 150-400 [facility] RBC (Bld) [#/Vol] 4.67 10*6/uL Normal 3.90-5.20 [facility] WBC (Bld) [#/Vol] 17.33 10*3/uL High 3.70-11.[address] [facility] [address] ABD/PEL WO IVCONon 2020 CT ABD/PEL WO IVCON * * *Final Report* * * DATE OF EXAM: Jan 17 2021 8:05PM [facility] 0531 - CT ABD/PEL WO IVCON / PROCEDURE REASON: Mass or lump, abdomen pelvis * * * * Physician Interpretation * * * * CT OF CHEST, ABDOMEN AND PELVIS WITHOUT CONTRAST CLINICAL HISTORY: Aspiration (accession [id number]), Mass or lump, abdomen pelvis (accession [id number]) Concern for possible source of infection vs [...] report for details. Pelvic bones are intact. Anodic Operator (topogram) images: Unremarkable. IMPRESSION: Left upper [...] be communicated with the ordering provider via imbookin ([employer]og[employer]) staff message or phone message by Imaging Support Services within 2 business days of report finalization. ACTIONABLE RESULT: FOLLOW-UP Acuity: Actionable Findings: Kidneys/Ureters/Bladder /Adrenal Routing Code: GU_1 Recommendation: MRI KIDNEY WO/W IVCON Time Frame: non-urgent, but prompt follow-up. COMMUNICATION: Results will be communicated with the ordering provider via imbookin (Pogby) staff message or phone message by Imaging Support Services within 2 business days of report finalization. Algorithms for management of incidental imaging findings can be found on the [facility] Intranet Sharepoint site at: [email or web address]/docu mentation/mychartlinks/ Managing%20Incidental%2 0Findi ngs%20at%20Imaging/Form s/AllItems.aspx Producer Director: GUILLE Transcribe Date/Time: Jan 17 2021 8:20P Dictated by : PADILLA JIM MD This examination was interpreted and the report reviewed and electronically signed by: PADILLA JIM MD on Jan 17 2021 8:43PM EST [id number] ACTIONABLE Invalid Interpretation Code [facility] CT BRAIN WO IVCONon 01-18-20 CT BRAIN WO IVCON * * *Final Report* * * DATE OF EXAM: Jan 17 2021 4:26PM [facility] 0504 - CT BRAIN WO IVCON [...] base and imaged soft tissues are unremarkable. Anodic Operator (topogram) images: No additional findings. IMPRESSION: No acute intracranial hemorrhage or mass effect is seen Producer Director: GUILLE Transcribe Date/Time: Jan 17 2021 4:47P Dictated by : JOHN THAKKAR MD This examination was interpreted and the report reviewed and electronically signed by: JOHN THAKKAR MD on Jan 17 2021 4:48PM EST [id number] Normal [facility] CT CERVICAL SPINE WO IVCONon 01-17-2021 CT CERVICAL SPINE WO IVCON * * *Final Report* * * DATE OF EXAM: Jan 17 2021 4:26PM [facility] 0505 - CT CERVICAL SPINE WO [...] Counting reference: Craniocervical junction. Anatomic Variants: None. Anodic Operator (topogram) images: No additional findings. Alignment: [...] vertebrae with counting from the craniocervical junction. Producer Director: GUILLE Transcribe Date/Time: Jan 17 2021 4:49P Dictated by : JOHN THAKKAR MD This examination was interpreted and the report reviewed and electronically signed by: JOHN THAKKAR MD on Jan 17 2021 4:53PM EST [id number] Normal [facility] CT CHEST WO IVCONon 01-18-[address] CHEST WO IVCON * * *Final Report* * * DATE OF EXAM: Jan 17 2021 8:05PM [facility] 0541 - CT CHEST WO IVCON / PROCEDURE REASON: Aspiration * * * * Physician Interpretation * * * * CT OF CHEST, ABDOMEN AND PELVIS WITHOUT CONTRAST CLINICAL HISTORY: Aspiration (accession [id number]), Mass or lump, abdomen pelvis (accession [id number]) Concern for possible source of infection vs [...] report for details. Pelvic bones are intact. Anodic Operator (topogram) images: Unremarkable. IMPRESSION: Left upper [...] be communicated with the ordering provider via imbookin (Pogby) staff message or phone message by Imaging Support Services within 2 business days of report finalization. ACTIONABLE RESULT: FOLLOW-UP Acuity: Actionable Findings: Kidneys/Ureters/Bladder /Adrenal Routing Code: GU_1 Recommendation: MRI KIDNEY WO/W IVCON Time Frame: non-urgent, but prompt follow-up. COMMUNICATION: Results will be communicated with the ordering provider via imbookin (Pogby) staff message or phone message by Imaging Support Services within 2 business days of report finalization. Algorithms for management of incidental imaging findings can be found on the [facility] Intranet Sharepoint site at: http://spo.[facility].org/docu mentation/mycjacobotlinks/ Managing%20Incidental%2 0Findi ngs%20at%20Imaging/Form s/AllItems.aspx Producer Director: GUILLE Transcribe Date/Time: Jan 17 2021 8:20P Dictated by : PADILLA JIM MD This examination was interpreted and the report reviewed and electronically signed by: PADILLA JIM MD on Jan 17 2021 8:43PM EST [id number] ACTIONABLE Invalid Interpretation Code [facility] CT LUMBAR SPINE WO IVCONon 0 01-17-2021 CT LUMBAR SPINE WO IVCON * * *Final Report* * * * * * SEE BOTTOM OF REPORT FOR ADDENDED TEXT * * * DATE OF EXAM: Jan 17 2021 5:34PM [facility] 0508 - CT LUMBAR SPINE WO [...] are 5 lumbar-type vertebrae. Anatomic variant: None. Anodic Operator (topogram) images: No additional findings. Alignment: [...] on 01/17/2021 6:08 PM via verbal communication. Producer Director: PSCB Transcribe Date/Time: Jan 17 2021 6:05P Dictated by : JOHN THAKKAR MD This examination was interpreted and the report reviewed and electronically signed by: JOHN THAKKAR MD on Jan 17 2021 6:01PM EST This document has been addended by: JOHN THAKKAR MD on Jan 17 2021 6:08PM EST [id number] Normal [facility] CT THORACIC SPINE WO IVCONon 01-17-2021 CT THORACIC SPINE WO IVCON * * *Final Report* * * DATE OF EXAM: Jan 17 2021 5:34PM [facility] 0514 - CT THORACIC SPINE WO [...] the purposes of this report, anatomic variants: Anodic Operator (topogram) images: No additional findings. Alignment: [...] and assume there are 5 lumbar-type vertebrae. Producer Director: GUILLE Transcribe Date/Time: Jan 17 2021 6:03P Dictated by : JOHN THAKKAR MD This examination was interpreted and the report reviewed and electronically signed by: JOHN THAKKAR MD on Jan 17 2021 6:13PM EST [id number] Normal [facility] Comp Metabolic Panelon 01-17 Albumin [Mass/Vol] 3.0 g/dL Low 3.9-4.9 [facility] ALP [Catalytic activity/Vol] 162 U/L High 34-123 [facility] ALT [Catalytic activity/Vol] 7 U/L Normal 7-38 [facility] Anion gap [Moles/Vol] 17 mmol/L Normal 9-18 [facility] AST [Catalytic activity/Vol] 15 U/L Normal 13-35 [facility] Bilirubin [Mass/Vol] 0.4 mg/dL Normal 0.2-1.3 [facility] Calcium [Mass/Vol] 9.6 mg/dL Normal 8.5-10.2 [facility] Chloride [Moles/Vol] 83 mmol/L Low 97-105 [facility] CO2 [Moles/Vol] 20 mmol/L Low 22-30 [facility] Creatinine [Mass/Vol] 2.93 mg/dL High 0.58-0.96 [facility] eGFR- Amer. 20 Normal [facility] ospital eGFR-All Other Races 16 . Normal [facility] Comment on above: Result Comment: eGFR [...] ospital Comment on above: Result Comment: The [place] [employer] (ADA) provides guidance for cutoff [...] Standards of Medical Care in Diabetes 2016, [place] [employer]. Diabetes Care. 2016.39(Suppl 1). Potassium [Moles/Vol] 5.5 mmol/L High 3.7-5.1 [facility] Protein [Mass/Vol] 9.5 g/dL High 6.3-8.0 [facility] Sodium [Moles/Vol] 120 mmol/L Low 136-144 [facility] Comment on above: Result Comment: Resu lt checked and verified Urea nitrogen [Mass/Vol] 104 mg/dL High 7-21 [facility] ED NOTEon 01-17-2021 ED NOTE HNO ID: [id number] Author: Prerna Luke RN Service: ? Author Type: Registered Nurse Type: ED Notes Filed: 01/17/2021 9:32 PM Note Text: Report called to 4E RN. Patient stable for transport at this time. [facility] ED NOTE HNO ID: [id number] Author: Prerna Luke RN Service: ? Author Type: Registered Nurse Type: ED Notes Filed: 01/17/2021 9:20 PM Note Text: 16Fr chaves inserted with 500 cc urine immediately drained. Patient tolerated well. [facility] ED NOTE HNO ID: [id number] Author: Prerna Luke RN Service: ? Author Type: Registered Nurse Type: ED Notes Filed: 01/17/2021 7:22 PM Note Text: BC obtained by lab. ABX infusing at this time. [facility] ED NOTE HNO ID: [id number] Author: Prerna Luke RN Service: ? Author [...] [facility] HNO [facility]: [id number] Author: Prerna Luke RN Service: ? Author Type: Registered Nurse Type: ED Notes Filed: 01/17/2021 4:25 PM Note Text: XR at bedside [facility] ED NOTE HNO ID: [id number] Author: Prerna Luke RN Service: ? Author Type: Registered Nurse Type: ED Notes Filed: 01/17/2021 4:03 PM Note Text: covid swab obtained and walked to lab. [facility] ED NOTE HNO ID: [id number] Author: Bharat Patterson RN Service: ? Author [...] time Reports oral intake has been poor [facility] ED PROV NOTEon 01-17-2021 ED PROV NOTE HNO ID: [id number] Author: Garrett Simon PA-C Service: Emergency Medicine Author Type: Physician Operations Research Scientist Type: ED Provider Notes Filed: 01/17/2021 9:27 PM Note Text: Attestation signed by Cory Crawley III, MD at 01/18/2021 12:06 PM Attending Note I have personally performed a face to face assessment of the patient and have reviewed the PA/SUPPORT ENGINEER note. My miller findings include: This is [...] significant midlin (more content not included)... Normal [facility] HISTORY PHYSICALon HISTORY PHYSICAL HNO ID: [id number] Author: Trevor Porras MD Service: Hospital Medicine Author Type: Physician Type: HANDP Filed: 01/17/2021 10:12 PM Note Text: DEPARTMENT OF HOSPITAL MEDICINE HISTORY AND PHYSICAL EXAM SERVICE DATE: 01/17/2021 Code Status: Not on file SERVICE TIME: 10:00 PM Primary Care Physician: Claudia Pcp NIGHT AND WEEKEND COVERAGE: ANKENY COVERAGE: Days: [phone], please contact via Wide Limited Release [employer] Nights: [phone], please page CC Hospitalist Night coverage pager [phone] Subjective CHIEF COMPLAINT: Generalized weakness, falls HPI: [...] Most recen (more content not included)... Normal [facility] Intermed Rapid COVIDon 01-17 SARS-CoV-2 (COVID-19) RNA ADRIEL+probe Ql (Unsp spec) UPPER RESPIRATORY TRACT SWAB Normal [facility] Comment on above: Performed By: #### I TCOVD ####[facility], [place] [phone] SARS-CoV-2 (COVID-19) RNA ADRIEL+probe Ql (Unsp spec) Negative for COVID19 (SARS CoV2) by RT-PCR or equivalent method. Normal Negative for COVID19 (SARS CoV2) by RT-PCR or equivalent method. [facility] Comment on above: Result Comment: This test was developed and its performance characteristics determined by [facility]'s Taurus Melendrez [facility] [place]. This test has been authorized by FDA under an Emergency Use Authorization (EUA). This test has been validated in accordance with the FDA's Guidance Document Policy for Diagnostics Testing in Laboratories Certified to Perform High Complexity Testing under CLIA prior to Emergency use Authorization for Coronavirus Disease 2019 during the Public Health Emergency issued on October 19, 2019. Test performed by [facility], Taurus Melendrez [facility] [place], [address] [place], [place] [address]. Performed By: #### I TCOVD ####[facility], [place] [phone] Magnesiumon 01-17-2021 Magnesium [Mass/Vol] 2.0 mg/dL Normal 1.7-2.3 [facility] NT Pro BNPon 01-17-2021 PRO B Natr Peptide 394 pg/mL High <125 [facility] Sed Rate Westergrenon 2020 Sed Rate Westergren 124 mm/hr High 0-20 [facility] Comment on above: Performed By: #### W SR ####[facility] [place], [place] [phone] TSHon 01-17-2021 TSH Qn 0.615 m[IU]/L Normal 0.270-4.200 [facility] Troponin Ton 01-17-2021 Troponin T.cardiac [Mass/Vol] 0.023 ug/L Normal 0.000-0.029 [facility] Urinalysis with Microscopico n 01-17-2021 Bacteria Present Critically abnormal 0 [facility] Bilirubin, Urine Negative Normal Negative [facility] pital Cast SEE COMMENT Normal 0 [facility] Comment on above: Result Comment: 0 Clarity (U) Turbid Critically abnormal Clear [facility] Color (U) Yellow Normal Yellow [facility] Glucose Ql (U) Negative Normal Negative [facility] Hemoglobin/Blood,Ur 2+ Critically abnormal Negative [facility] Ketones Ql (U) Negative Normal Negative [facility] Leukest 3+ Critically abnormal Negative [facility] Nitrite Ql (U) Positive Critically abnormal Negative [facility] pH (U) 8.5 [pH] High 5.0-8.0 [facility] Protein, Urine 2+ Critically abnormal Negative [facility] RBC 3-5 Critically abnormal 0-3 [facility] Specific [place], Ur 1.013 Normal 1.005-1.030 [facility] Urobilinogen Qn (U) 0.2 {Madeleine'U}/dL Normal 0.2-1.0 [facility] WBC (U) [#/Vol] /uL Critically abnormal 0-5 [facility] Urine Cultureon 01-17-2021 Bacteria identified Cx [...] F Ertapenem SUSCEPTIBLE <=0.5 F Critically abnormal [facility] Comment on above: Performed By: #### U RCUL ####[facility] [address], [place] [phone] XR CHEST 1V FRONTAL PORTon 0 01-17-2021 [...] exam with no evidence of acute disease. Producer Director: GUILLE Transcribe Date/Time: Jan 17 2021 4:40P Dictated by : FLASH WOODS MD This examination was interpreted and the report reviewed and electronically signed by: FLASH WOODS MD on Jan 17 2021 4:41PM EST [id number] Normal [facility] Vital Signs Date Time Vital Sign Value Performing Clinician Facility 05-01-2024 10:45-0400 Diastolic blood pressure 96 mm[Hg] Juanito Barnard MD Work Phone: [facility] 05-01-2024 10:45-0400 Heart rate 74 /min Juanito Barnard MD Work Phone: [facility] 05-01-2024 10:45-0400 Systolic blood pressure 173 mm[Hg] Juanito Barnard MD Work Phone: [facility] 03-26-2024 10:48-0400 Body mass index (BMI) [Ratio] 24.41 kg/m2 Carmenza Nolen MD Work Phone: [facility] 03-26-2024 10:48-0400 Body weight 56.7 kg Carmenza Nolen MD Work Phone: [facility] Comment on above: VERBAL 01-12-2024 13:50-0400 Diastolic blood pressure 69 mm[Hg] Taurus Ballard MD Work Phone: [facility] 01-12-2024 13:50-0400 Heart rate 75 /min Taurus Ballard MD Work Phone: [facility] 01-12-2024 13:50-0400 Systolic blood pressure 142 mm[Hg] Taurus Ballard MD Work Phone: [facility] 10-25-2023 15:12-0500 Blood Pressure Location HEIDY ARNOLD [facility] 10-25-2023 15:12-0500 Body temperature 96.8 [degF] HEIDY ARNOLD [facility] 10-25-2023 15:12-0500 Diastolic blood pressure 78 mm[Hg] HEIDY ARNOLD [facility] 10-25-2023 15:12-0500 Heart rate 86 /min HEIDY ARNOLD [facility] 10-25-2023 15:12-0500 Systolic blood pressure 122 mm[Hg] HEIDY ARNOLD [facility] 08-01-2023 15:00-0500 Body height 154.94 cm [facility] 06-08-2023 13:00-0400 Body height 154.94 cm Tondra Mapus Other [facility] Other 06-08-2023 13:00-0400 Body mass index (BMI) [Ratio] 25.37 kg/m2 Tondra Mapus Other [facility] Other 06-08-2023 13:00-0400 Body weight 60.92 kg Tondra Mapus Other [facility] Other 06-08-2023 13:00-0400 Diastolic blood pressure 66 mm[Hg] Tondra Mapus Other [facility] Other 06-08-2023 13:00-0400 Respiratory rate 18 /min Tondra Mapus Other [facility] Other 06-08-2023 13:00-0400 SaO2% (BldA) [Mass fraction] 100 % Tondra Mapus Other [facility] Other 06-08-2023 13:00-0400 Systolic blood pressure 107 mm[Hg] Tondra Mapus Other [facility] Other 05-18-2023 11:00-0400 Body height 154.94 cm Tondra Mapus Other [facility] Other 05-18-2023 11:00-0400 Body mass index (BMI) [Ratio] 24.69 kg/m2 Tondra Mapus Other [facility] Other 05-18-2023 11:00-0400 Body weight 59.29 kg Tondra Mapus Other [facility] Other 05-18-2023 11:00-0400 Diastolic blood pressure 96 mm[Hg] Tondra Mapus Other [facility] Other 05-18-2023 11:00-0400 Respiratory rate 18 /min Tondra Mapus Other [facility] Other 05-18-2023 11:00-0400 SaO2% (BldA) [Mass fraction] 97 % Tondra Mapus Other [facility] Other 05-18-2023 11:00-0400 Systolic blood pressure 161 mm[Hg] Tondra Mapus Other [facility] Other 02-22-2023 08:34-0400 Blood Pressure Location Lisa Lue [facility] 02-22-2023 08:34-0400 Diastolic blood pressure 66 mm[Hg] Lisa Lue [facility] 02-22-2023 08:34-0400 Heart rate 76 /min Lisa Lue [facility] 02-22-2023 08:34-0400 Systolic blood pressure 106 mm[Hg] Lisa Lue [facility] 12-27-2022 16:00-0400 Body height 154.94 cm Eli Mendenhalls Other [facility] Other 12-27-2022 16:00-0400 Body mass index (BMI) [Ratio] 26.11 kg/m2 Azyanet Crowderys Other [facility] Other 12-27-2022 16:00-0400 Body temperature 96.5 [degF] Azyanet Mendenhalls Other [facility] Other 12-27-2022 16:00-0400 Body weight 62.69 kg Azyanet Crowderys Other [facility] Other 12-27-2022 16:00-0400 Diastolic blood pressure 98 mm[Hg] Azyanet Mendenhalls Other [facility] Other 12-27-2022 16:00-0400 Respiratory rate 18 /min Azyanet Mendenhalls Other [facility] Other 12-27-2022 16:00-0400 SaO2% (BldA) [Mass fraction] 98 % Azyanet Crowderys Other [facility] Other 12-27-2022 16:00-0400 Systolic blood pressure 151 mm[Hg] Aziz BakXG Sciencess Other [facility] Other 09-21-2022 08:42-0500 Blood Pressure Location Lisa Lue [facility] 09-21-2022 08:42-0500 Diastolic blood pressure 67 mm[Hg] Lisa Porras [facility] 09-21-2022 08:42-0500 Heart rate 74 /min Lisa Porras [facility] 09-21-2022 08:42-0500 Systolic blood pressure 103 mm[Hg] Lisa Porras 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) (Primary Dx); Retention of urine; Type 2 diabetes mellitus with hyperglycemia, with long-term current use of insulin (HCC); Other hydronephrosis; BURKE (stress urinary incontinence, female); Bladder compliance low Start: 04-24-2024 End: 04-24-2024 ambulatory [facility] Start: 04-24-2024 End: 04-24-2024 ambulatory [facility] Start: 04-16-2024 End: 04-16-2024 ambulatory AGUSTO OLMSTEAD Not Available Start: 04-15-2024 End: 04-15-2024 ambulatory Chioma Durán [facility] Start: 04-09-2024 End: 04-09-2024 ambulatory CARMENZA NOLEN Facility:[facility] Start: 04-09-2024 End: 04-09-2024 Patient encounter [...] of urine Start: 03-29-2024 End: 03-29-2024 ambulatory CARMENZA NOLEN Facility:[facility] Start: 03-27-2024 ambulatory Nuria garrett APRN.STANDPIPE TENDER Work Phone: Pulmonary Medicine Start: 03-26-2024 End: 03-26-2024 ambulatory CARMENZA NOLEN Facility:[facility] Start: 03-26-2024 End: 03-26-2024 Patient encounter procedure Carmenza Nolen MD Work Phone: Urology Comment on above: Retention of urine ( Primary Dx); Screening for genitourinary condition; Type 2 diabetes mellitus with hyperglycemia, with long-term current use of insulin ([facility]); BURKE (stress urinary incontinence, female) Start: 03-16-2024 End: 03-16-2024 ambulatory JYOTHI SHELTON [facility] Start: 03-15-2024 End: 03-15-2024 ambulatory ZACKERY Rodriguez PEDRO [facility] Start: 02-26-2024 Telephone encounter Flavio Coon RN Ur [facility] Start: 02-12-2024 Telephone encounter Vonnie Wilder RN Ur [facility]log[facility] Comment on above: Results - Ct Start: 02-01-2024 End: 02-01-2024 ambulatory TAURUS BALLARD Facility:[facility] Start: 02-01-2024 End: 02-01-2024 Subsequent hospital visit by physician Arrival Time Radiology Work Phone: Radiology Pet CT Comment on above: Other hydronephrosis [N13.39] Start: 01-24-2024 End: 01-24-2024 ambulatory SWETA LI [facility] Start: 01-17-2024 End: 01-17-2024 ambulatory AGUSTO AICHHOLZ Not Available Start: 01-12-2024 End: 01-12-2024 Patient encounter procedure Taurus Ballard MD Work Phone: Urology Comment on above: Other hydronephrosis (Primary Dx); Screening for genitourinary condition Start: 01-12-2024 End: 01-12-2024 ambulatory TAURUS BALLARD Facility:[facility] Start: 12-21-2023 End: 12-21-2023 ambulatory AGUSTO AICHHOLZ Not Available Start: 12-13-2023 End: 12-13-2023 ambulatory SWETA LI [facility] Start: 11-16-2023 End: 11-16-2023 ambulatory AGUSTO AICHHOLZ Not Available Start: 11-06-2023 Refill Asia Barreto RN [facility] Comment on above: 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; Complex regional pain syndrome type 1 of right upper extremity Start: 11-02-2023 ambulatory PA-C HEIDY ARNOLD F [facility]ility[facility] Start: 10-25-2023 End: 10-26-2023 ambulatory PA-C HEIDY ARNOLD Facility:[facility] [place] Start: 10-25-2023 End: 10-25-2023 Patient encounter procedure HEIDY ARNOLD [facility] Start: 10-14-2023 End: 10-14-2023 ambulatory KATEY DIAMOND [facility] Start: 10-13-2023 End: 10-13-2023 ambulatory ZACKERY PEDRO [facility] Start: 10-11-2023 End: 10-11-2023 ambulatory AGUSTO AICHHOLZ Not Available Start: 10-10-2023 Refill Agusto Pimentel [facility] Comment on above: 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; Complex regional pain syndrome type 1 of right upper extremity Start: 09-29-2023 End: 09-29-2023 ambulatory ZACKERY PEDRO [facility] Start: 09-29-2023 End: 09-29-2023 ambulatory Drew Esqueda Research Coordinator [facility] Provider Adult Comment on above: CHRISTOPHER IRB# [phone] Start: 09-28-2023 E-mail encounter fro m caregiver Drew Esqueda Research Coordinator [facility] Start: 09-27-2023 Telephone encounter Drew bourne Research Coordinator [facility] Provider Adult Comment on above: Research F/U Start: 09-26-2023 Telephone encounter Drew bourne Research Coordinator [facility] Provider Adult Comment on above: Research F/U Start: 09-12-2023 End: 09-13-2023 ambulatory PA-C HEIDY ARNOLD Facility[place] [place] Start: 09-12-2023 End: 09-12-2023 Patient encounter procedure HEIDY ARNOLD [facility] Start: 09-07-2023 Refill Yesenia Brunett RN [facility] Comment on above: 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 Start: 09-05-2023 End: 09-05-2023 ambulatory Tamia Juliaus Other [facility] Other Start: 09-05-2023 Telephone encounter Tamia Juliaus [facility] Start: 08-09-2023 End: 08-09-[address] [facility] Start: 08-09-2023 End: 08-09-2023 ambulatory [facility] Start: 08-01-2023 End: 08-01-2023 Patient encounter procedure [facility] Nephrology Michael Work Phone: Start: 07-18-2023 End: 07-19-2023 ambulatory PA-C HEIDY ARNOLD Facility[facility] [place] Start: 07-05-2023 End: 07-05-2023 Orders Only Taurus Ballard MD Work Phone: Urology Comment on above: Kidney cyst, acquire d (Primary Dx) Start: 07-05-2023 Telephone encounter Eli Sprague [facility] Start: 06-28-2023 End: 06-29-2023 ambulatory Lisa Porras Facility:[facility] Start: 06-28-2023 End: 06-28-2023 Patient encounter procedure Lisa Porras [facility] Start: 06-26-2023 End: 06-26-2023 ambulatory Tondra Mapus Other [facility] Other Start: 06-26-2023 Telephone encounter Tondra Mapus [facility] Start: 06-23-2023 Telephone encounter Heidy harris RN Urology Comment on above: Surgical Followup Start: 06-22-2023 End: 06-23-2023 ambulatory TAURUS BALLARD Facility:[facility] Start: 06-19-2023 ambulatory Taurus newton MD Work Phone: Urology Comment on above: Aislinn Wheeler upcomin g procedure Start: 06-15-2023 Telephone encounter Vonnie Wilder RN Ur ology Comment on above: Pre-Op Teaching Start: 06-12-2023 End: 06-12-2023 ambulatory Tondra Mapus Other [facility] Other Start: 06-12-2023 Telephone encounter Tondra Mapus [facility] Start: 06-08-2023 End: 06-08-2023 Lab Drop off HEIDY ARNOLD [facility] Start: 06-08-2023 End: 06-08-2023 Patient encounter procedure AGUSTO OLMSTEAD [facility] Start: 06-08-2023 (PUMP/CGM) Pump [facility] Start: 06-08-2023 End: 06-09-2023 ambulatory Sumi Lentz ffk environment [facility] [employer] Other Start: 06-06-2023 Encounter for other preprocedural examination CARMENZA GREENJOSE M [facility] Start: 06-06-2023 End: 06-06-2023 ambulatory TAURUS BALLARD Facility:[facility] Start: 05-22-2023 End: 05-23-2023 ambulatory Lisa Porras Facility:[facility] Start: 05-22-2023 End: 05-22-2023 Patient encounter procedure Lisa Porras [facility] Start: 05-18-2023 End: 05-18-2023 ambulatory Sara Dumontus Other [facility] Other Start: 05-18-2023 FQ visit new patient Sara Gasca [facility] Start: 05-18-2023 Telephone encounter Taurus rees MD Work Phone: Urology Comment on above: Follow Up Start: 05-17-2023 End: 05-17-2023 ambulatory TAURUS BALLARD Facility:[facility] Start: 05-11-2023 End: 2023 ambulatory PA-C HEIDY ARNOLD Facility:[facility] Start: 05-11-2023 End: 05-11-2023 Lab Drop off HEIDY ARNOLD [facility] Start: 05-03-2023 End: 05-04-2023 ambulatory Lisa Porras Facility:[facility] Start: 04-18-2023 End: 04-19-2023 ambulatory PA-C HEIDY ARNOLD Facility:[facility] Start: 04-18-2023 End: 04-19-2023 ambulatory Lisa Porras Facility:[facility] Start: 04-18-2023 End: 04-18-2023 Lab Drop off HEIDY ARNOLD [facility] Start: 04-18-2023 End: 04-18-2023 Patient encounter procedure [facility] Start: 04-04-2023 End: 04-04-2023 ambulatory Brigette Wesley Other [facility] Other Start: 04-04-2023 Telephone encounter Brigette Wesley [facility] Start: 02-22-2023 End: 02-23-2023 ambulatory Lisa MIrina Sharifjennifer Facility:[facility] Start: 02-22-2023 End: 02-22-2023 Patient encounter procedure Lisa Porras [facility] Start: 01-09-2023 End: 01-09-2023 ambulatory Azyanet Bakdis Other [facility] Other Start: 01-09-2023 Telephone encounter Azyanet Mendenhalls [facility] Start: 01-03-2023 End: 01-04-2023 ambulatory STANDPIPE TENDER AGUSTO AICHHOLZ Facility:[facility] Start: 12-28-2022 End: 12-29-2022 ambulatory STANDPIPE TENDER AGUSTO AICHHOLZ Facility:[facility] Start: 12-27-2022 End: 12-27-2022 ambulatory Aziz Bakhous Other [facility] Other Start: 12-27-2022 Office outpatient ne w 30 minutes Aziz Bakhous [facility] Start: 12-15-2022 End: 12-16-2022 ambulatory STANDPIPE TENDER AGUSTO AICHHOLZ Facility:[facility] Start: 12-14-2022 End: 12-15-2022 ambulatory PETER D HIGHLANDER Facility:[facility] Start: 10-27-2022 End: 10-28-2022 ambulatory STANDPIPE TENDER AGUSTO AICHHOLZ Facility:[facility] Start: 10-24-2022 End: 10-25-2022 ambulatory STANDPIPE TENDER AGUSTO AICHHOLZ Facility:[facility] Start: 10-12-2022 End: 10-13-2022 ambulatory STANDPIPE TENDER AGUSTO AICHHOLZ Facility:[facility] Start: 10-05-2022 End: 10-06-2022 ambulatory STANDPIPE TENDER AGUSTO AICHHOLZ Facility:[facility] Start: 09-29-2022 End: 09-30-2022 ambulatory STANDPIPE TENDER AGUSTO AICHHOLZ Facility:[facility] Start: 09-21-2022 End: 09-22-2022 ambulatory PETER D HIGHLANDER Facility:[facility] Start: 09-21-2022 End: 09-21-2022 Patient encounter procedure Lisa Porras [facility] Start: 09-15-2022 End: 09-16-2022 ambulatory STANDPIPE TENDER AGUSTO AICHHOLZ Facility:[facility] Start: 09-13-2022 End: 09-13-2022 Patient encounter procedure HEIDY ARNOLD [facility] Start: 09-08-2022 End: 09-09-2022 ambulatory STANDPIPE TENDER AGUSTO AICHHOLZ Facility:[facility] Start: 09-02-2022 End: 09-03-2022 ambulatory PETER D HIGHLANDER Facility:[facility] Start: 08-26-2022 End: 08-27-2022 ambulatory PETER D HIGHLANDER Facility:[facility] Start: 08-09-2022 End: 08-10-2022 ambulatory PETER D HIGHLANDER Facility:[facility] Start: 08-05-2022 End: 08-06-2022 ambulatory PETER D HIGHLANDER Facility:[facility] Start: 08-04-2022 End: 08-05-2022 ambulatory PETER D HIGHLANDER Facility:[facility] Start: 08-03-2022 End: 08-04-2022 ambulatory STANDPIPE TENDER AGUSTO AICHHOLZ Facility:[facility] Start: 08-02-2022 End: 08-03-2022 ambulatory STANDPIPE TENDER AGUSTO OLMSTEAD Facility:[facility] Start: 08-01-2022 End: 08-02-2022 ambulatory STANDPIPE TENDER AGUSTO OLMSTEAD Facility:[facility] Start: 07-19-2022 End: 07-20-2022 ambulatory STANDPIPE TENDER AGUSTO OLMSTEAD Facility:[facility] Start: 07-08-2022 End: 07-09-2022 ambulatory STANDPIPE TENDER AGUSTO OLMSTEAD Facility:[facility] Start: 07-06-2022 End: 07-07-2022 ambulatory STANDPIPE TENDER AGUSTO OLMSTEAD Facility:[facility] Start: 07-05-2022 End: 07-06-2022 ambulatory RAMON HUNTLEY Facility:[facility] Start: 06-28-2022 End: 06-29-2022 ambulatory RAMON Tillman [facility] Facility:[facility] Start: 06-24-2022 End: 06-25-2022 ambulatory RAMON Tillman [facility] Facility:[facility] Start: 06-11-2022 End: 06-16-2022 Evaluation [...] Date Procedure Procedure Detail Performing Clinician Start: 05-01-2024 Urnls dip stick/tabl et rgnt auto w/o microscopy Bulk Order Provider Start: 03-26-2024 Urnls dip stick/tabl et rgnt auto w/o microscopy Carmenza Nolen MD Work Phone: Start: 02-01-2024 Ct abdomen & pelvis w/o contrst 1/> body re Taurus Ballard MD Work Phone: Start: 02-01-2024 CREATININE BLD Taurus uribe MD Work Phone: Start: 01-12-2024 Urnls dip stick/tabl et rgnt auto w/o microscopy Taurus Ballard MD Work Phone: Start: 06-22-2023 Laparoscopic partial nephrectomy of left kidney HEIDY ARNOLD Start: 06-06-2023 Antibody screen CARMENZA LEA Comment on above: Order Comment: Speci men Type: BLOOD SPECIMENOrdering Facility: [facility] Address: [address] [place] [address] Performed By: #### T [id number] ####CC [facility] BLOOD BANKCLNJ [id number] [address] [place] Start: 05-22-2023 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 Ricardo Rocha Start: 06-13-2022 Detachment at Left F oot, Partial 1st Ray, Open Approach KIARA OLMSTEAD Start: 06-13-2022 Microscopic examinat ion of blood, culture KIARA OLMSTEAD Comment on above: Performed By: #### B LDCX1 ####[facility] [id number] [place] [id number]. Nanomarcial Aj Start: 06-11-2022 Detachment at Left 1 st [...] 04-28-2026 Screening for malignant neoplasm of colon [facility] Start: 04-17-2025 Screening for malignant neoplasm of breast Mammogram Screening [facility] Start: 01-31-2025 Creatinine measurement Serum Creatinine [facility] Start: 10-13-2024 Tobacco Screening Tobacco Screening [facility] Start: 09-29-2024 Tobacco Screening Tobacco Screening [facility] Start: 09-03-2024 Complete blood count Hemoglobin/Hematocrit [facility] Start: 09-03-2024 Creatinine measurement Serum Creatinine [facility] Start: 08-09-2024 Adult BMI Screening Adult BMI Screening [facility] Start: 08-09-2024 Tobacco Screening Tobacco Screening [facility] Start: 06-23-2024 Hemoglobin/Hematocrit Hemoglobin/Hematocrit [facility] Start: 06-23-2024 Serum Creatinine Serum Creatinine [facility] Start: 06-06-2024 Hemoglobin/Hematocrit Hemoglobin/Hematocrit [facility] Start: 06-06-2024 Serum Creatinine Serum Creatinine [facility] Start: 05-10-2024 End: 05-10-2024 ambulatory 05/10/2024 11:30 AM EDT [facility]rology [address] [id number] Juanito Barnard MD [address] [place] [address] add on per staff message Urology Comment on above: add on per staff message Start: 05-01-2024 End: 07-31-2024 Basic metabolic 2000 panel - Serum or Plasma BASIC METABOLIC PANEL Lab Routine Stage 3b chronic kidney disease (HCC) Expected: 05/01/2024, Expires: 07/31/2024 [facility] Work Phone: Comment on above: Expected: 05/01/2024, Expires: Start: 05-01-2024 End: 07-31-2024 CYSTATIN C CYSTATIN C Lab Routine Stage 3b chronic kidney disease (HCC) Expected: 05/01/2024, Expires: 07/31/2024 [facility] Comment on above: Expected: 05/01/2024, Expires: Start: 05-01-2024 End: 05-01-2024 Patient encounter procedure 05/01/2024 10:00 AM EDT Office Visit Urology [address] [address] Juanito Barnard MD [address] [place] [address] discuss bladder augment per Dr. Nolen Urology Comment on above: discuss bladder augment per Dr. Nolen Start: 04-21-2024 Covid-19 Vaccine ( season) Covid-19 Vaccine () [facility] Start: 04-21-2024 Influenza vaccination [facility] Start: 04-09-2024 End: 04-09-2024 Follow-up encounter 04/09/2024 9:30 AM EDT [facility] [address] [place] [address] Carmenza Nolen MD [address] [place] [address] 1 week follow up per dr. nolen Urology Comment on above: 1 week follow up per dr. nolen Start: 04-04-2024 Hepatitis B screening Urine Albumin:Creatinine Ratio [facility] Start: 03-29-2024 End: 03-29-2024 Nursing evaluation of patient and report 03/29/2024 3:00 PM EDT Nurse Visit Urology [address] [address] [employer] [address] [place] [address] [R33.9] Retention of urine Urology Comment on above: [R33.9] Retention of urine Start: 03-26-2024 End: 03-26-2024 Patient encounter procedure 03/26/2024 11:00 AM EDT Office Visit Urology [address] [place] [address] Carmenza Nolen MD [address] [place] [address] Ballard Urology Comment on above: Follow up per Dr. 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 encounter procedure [employer] [facility] Comment on above: Continuous leakage of Urine Start: 01-22-2024 DIABETES SCREEN DIABETES SCREEN [facility] Start: 01-19-2024 End: 04-19-2024 CREATININE BLD CREATININE BLD Lab Routine Other hydronephrosis Expected: 01/19/2024 (Approximate), Expires: 04/19/2024 [facility] Comment on above: Expected: 01/19/2024 (Approximate), Expi res: 04/19/2024 Start: 01-19-2024 End: 02-10-2025 CT Kidney WO and W contrast IV CT UROGRAM WO/W IVCON Radiology Routine Other hydronephrosis Expected: 01/19/2024 (Approximate), Expires: 02/10/2025 [facility] Work Phone: Comment on above: Expected: 01/19/2024 (Approximate), Expi res: 02/10/2025 Start: 11-22-2023 End: 11-22-2023 Patient encounter procedure 11/22/2023 11:15 AM EDT Office Visit [facility] [address] [place] [phone] Sweta Li, PAJuan JoseC [address] [place] [address] [facility] Start: 10-25-2023 End: 10-25-2023 Patient encounter procedure 10/25/2023 12:45 PM EST Office Visit [facility] [address] [place] [phone] Sweta Li, PROMISE [address], [address] [place], [place] [id number] [facility] Start: 10-13-2023 End: 10-13-2023 Njx anes stellate ganglion crv sympathetic INJECTION BLOCK NERVE STELLATE GANGLION NECK Complex regional pain syndrome type 1 of right upper extremity 10/13/2023 12:44 PM EST [facility] Start: 10-13-2023 End: 10-13-2023 Patient encounter procedure 10/13/2023 9:55 AM EST Appointment [facility] [address] [place] [phone] Zackery Pedro MD [address] [place], [place] [id number] [facility] Start: 10-05-2023 End: 01-04-2024 Basic metabolic 2000 panel - Serum or Plasma BASIC METABOLIC PNL Lab Routine Kidney cyst, acquired Expected: 10/05/2023 (Approximate), Expires: 01/04/2024 [facility] Work Phone: Comment on above: Expected: 10/05/2023 (Approximate), Expi res: 01/04/2024 Start: 10-05-2023 End: 08-03-2024 US KIDNEY/BLADDER US KIDNEY/BLADDER Radiology Routine Kidney cyst, acquired Expected: 10/05/2023 (Approximate), Expires: 08/03/2024 [facility] Work Phone: Comment on above: Expected: 10/05/2023 (Approximate), Expi res: 08/03/2024 Start: 09-06-2023 Hemoglobin A1c measurement HbA1C [facility] Start: 09-06-2023 Hemoglobin A1c/Hemoglobin.total in Blood HbA1C [facility] Start: 08-21-2023 Advance Directive Discussion Advance Directive Discussion [facility] Start: 08-21-2023 Behavioral Health Screening Behavioral Health Screening [facility] Start: 08-21-2023 Depression Assessment Depression Assessment [facility] Start: 2023 Advance Directive Discussion Advance Directive Discussion [facility] Start: 2023 Bone Density Screening Bone Density Screening [facility] Start: 2023 Fall Risk Screening Fall Risk Screening [facility] Start: 2023 Screening for osteoporosis Bone Density Screening [facility] Start: 04-21-2023 Covid-19 Vaccine ( season) Covid-19 Vaccine ( season) [facility] Start: 04-21-2023 Covid-19 Vaccine ( season) Covid-19 Vaccine ( season) [facility] Start: 04-21-2023 Influenza vaccination [facility] Start: 08-21-2022 Depression Assessment Depression Assessment [facility] Start: 04-21-2021 Influenza [facility] Start: 2018 Hepatitis B Vaccine (1 of 3 - Risk 3-dose series) Hepatitis B Vaccine (1 of 3 - Risk 3-dose series) [facility] Start: 2018 RSV Vaccine (1 - 1-dose 60+ series) RSV Vaccine (1 - 1-dose 60+ series) [facility] Start: 2008 Administration of varicella zoster vaccine Zoster (Shingles) Vaccine (1 of 2) [facility] Start: 2008 Screening for malignant neoplasm of colon [facility] Start: 2008 SHINGRIX VACCINE (1 of 2) SHINGRIX VACCINE (1 of 2) [facility] Start: 2003 Cologuard (FIT-DNA) Cologuard (FIT-DNA) [facility] Start: 2003 Colonoscopy Colonoscopy [facility] Start: 2003 Colorectal Cancer Screening Colorectal Cancer Screening [facility] Start: [address] Colonography [facility] Start: 2003 Fecal Occult Blood Fecal Occult Blood [facility] Start: 2003 LIPID SCREEN LIPID SCREEN [facility] Start: 2003 Screening for malignant neoplasm of colon [facility] Start: 2003 Sigmoidoscopy Sigmoidoscopy [facility] Start: 1998 Mammography [facility] Start: 1998 Screening for malignant neoplasm of breast Mammogram Screening [facility] Start: 1988 HPV TESTING HPV TESTING [facility] Start: 1979 PAP TESTING PAP TESTING [facility] Start: 1977 DTaP,Tdap and Td Vaccines (1 - Tdap) DTaP,Tdap and Td Vaccines (1 - Tdap) [facility] Start: 1977 Urine microalbumin profile [facility] Start: 1976 Annual PCP Team Chronic Disease Visit Annual PCP Team Chronic Disease Visit [facility] Start: 1976 Anxiety Screening Anxiety Screening [facility] Start: 1976 BP Controlled (<130/80) BP Controlled (<130/80) [facility] Start: 1976 Depression Screening Depression Screening [facility] Start: 1976 Diabetic foot examination Diabetic Foot Exam [facility] Start: 1976 Hepatitis B surface antibody level LDL Cholesterol [facility] Start: 1976 HEPATITIS C SCREENING HEPATITIS C SCREENING [facility] Start: 1976 Hepatitis C screening Hepatitis C Screening [facility] Start: 1976 HIV SCREENING HIV SCREENING [facility] Start: 1976 HIV screening HIV Screening [facility] Start: 1976 Spirometry Spirometry [facility] Start: 1970 Adult depression screening assessment DEPRESSION SCREENING [facility] Start: 1970 COVID-19 VACCINE (1) COVID-19 VACCINE (1) [facility] Start: 1968 3 comp foot exam completed Diabetic Foot Exam [facility] Start: 1968 Diabetic foot examination Diabetic Foot Exam [facility] Start: 1968 Glaucoma screening Dilated Retinal Exam [facility] Start: 1968 Hepatitis B screening Urine Albumin:Creatinine Ratio [facility] Start: 1968 Hepatitis C antibody, confirmatory test Dilated Retinal Exam [facility] Start: 1964 Pneumococcal Vaccine: 65+ (1 - PCV) Pneumococcal Vaccine: 65+ (1 - PCV) [facility] Start: 1964 Pneumococcal Vaccine: 65+ (1 of 2 - PCV) Pneumococcal Vaccine: 65+ (1 of 2 - PCV) [facility] Start: 1958 Glaucoma screening Diabetic Ophthalmology Exam [facility] Start: 1958 Urine screening for protein Urine Microalbumin [facility] FLUROURODYNAMICS WITH EMG FLUROU RODYNAMICS WITH EMG Procedures Routine Retention of urine BURKE (stress urinary incontinence, female) Ordered: 03/26/2024 [facility] Work Phone: Comment on above: Ordered: 03/26/2024 Njx anes stellate ganglion crv sympathetic INJECTION BLOCK NERVE STELLATE GANGLION NECK Complex regional pain syndrome type 1 of right upper extremity [place] [facility] Njx anes stellate ganglion crv sympathetic INJECTION BLOCK NERVE STELLATE GANGLION NECK Complex regional pain syndrome type 1 of right upper extremity [facility] Immunizations Immunization Date Immunization Notes Care Provider Fa tara 04-02-2021 SARS-CoV-2 (COVID-19 ) mRNA-1273 vaccine HEIDY ARNOLD [facility] 12-07-2020 SARS-CoV-2 (COVID-19 ) mRNA-1273 vaccine HEIDY ARNOLD [facility] 06-03-2016 influenza virus vaccine, unspecified formulation HEIDY ARNOLD [facility] 06-03-2016 influenza, seasonal, injectable, preservative free Drew Esqueda Research Coordinator [facility] Payers Date Payer Category Payer Private Health Insurance [id number] 2023 Self-pay 2022 Medicare [id number] 2022 Medicare [id number] 2006 Medicare MEDICARE MEDICAR E A [id number] 2006-Present [place] Medicare [id number] 2003 Unknown [id number] 1959 Medicare [id number] 2.16.840.1.017193.19 1959 Unknown [id number] 1959 Unknown [id number] 1958 Unknown [id number] 2.16.840.1.449358.3.579.2 .593 1958 Unknown [id number] 2.16.840.1.764330.3.579.2 .593 1958 Unknown [id number] 2.16.840.1.623367.3.579.2 .593 1958 Unknown [id number] 2.16.840.1.094577.3.579.2 .593 1958 Unknown [id number] 2.16.840.1.480469.3.579.2 .593 1958 Unknown [id number] 2.16.840.1.267618.3.579.2 .593 1958 Unknown [id number] 2.16.840.1.597406.3.579.2 .593 1958 Unknown [id number] 2.16.840.1.685089.3.579.2 .593 1958 Unknown [id number] 2.16.840.1.886493.3.579.2 .593 1958 Unknown [id number] 2.16.840.1.425054.3.579.2 .593 1958 Unknown [id number] 2.16.840.1.792722.3.579.2 .593 1958 Unknown [id number] 2.16.840.1.208434.3.579.2 .593 1958 Unknown [id number] 2.16.840.1.304659.3.579.2 .593 1958 Unknown [id number] 2.16.840.1.205405.3.579.2 .593 1958 Unknown [id number] 2.16.840.1.394323.3.579.2 .593 1958 Unknown [id number] 2.16.840.1.419147.3.579.2 .593 1958 Unknown [id number] 2.16.840.1.690532.3.579.2 .593 1958 Unknown [id number] 2.16.840.1.793573.3.579.2 .593 1958 Unknown [id number] 2.16.840.1.944494.3.579.2 .593 1958 Unknown [id number] 2.16.840.1.328707.3.579.2 .593 1958 Unknown [id number] 2.16.840.1.746524.3.579.2 .593 1958 Unknown [id number] 2.16.840.1.524650.3.579.2 .593 1958 Unknown [id number] 2.16.840.1.576556.3.579.2 .593 1958 Unknown [id number] 2.16.840.1.058868.3.579.2 .593 1958 Unknown [id number] 2.16.840.1.699601.3.579.2 .593 1958 Unknown [id number] 2.16.840.1.061157.3.579.2 .593 1958 Unknown [id number] 2.16.840.1.920876.3.579.2 .593 1958 Unknown [id number] 2.16.840.1.166997.3.579.2 .593 1958 Unknown [id number] 2.16.840.1.291876.3.579.2 .593 1958 Unknown [id number] 2.16.840.1.170739.3.579.2 .593 1958 Unknown [id number] 2.16.840.1.412159.3.579.2 .593 1958 Unknown [id number] 2.16.840.1.570608.3.579.2 .727 1958 Unknown [id number] 2.16.840.1.149570.3.579.2 .72 1958 Unknown [id number] 2.16.840.1.233832.3.579.2 .72 1958 Unknown [id number] 2.16.840.1.146443.3.579.2 .72 1958 Unknown [id number] 2.16.840.1.580836.3.579.2 .72 1958 Unknown [id number] 2.16.840.1.079735.3.579.2 .72 1958 Unknown [id number] 2.16.840.1.355585.3.579.2 .72 1958 Unknown [id number] 2.16.840.1.328685.3.579.2 .72 1958 Unknown [id number] 2.16.840.1.701158.3.579.2 .72 1958 Unknown [id number] 2.16.840.1.284089.3.579.2 .72 1958 Unknown [id number] 2.16.840.1.356323.3.579.2 .72 1958 Unknown [id number] 2.16.840.1.139112.3.579.2 .72 1958 Unknown [id number] 2.16.840.1.503161.3.579.2 .727 1958 Unknown [id number] 2.16.840.1.680589.3.579.2 .727 1958 Unknown [id number] 2.16.840.1.809708.3.579.2 .727 1958 Unknown [id number] 2.16.840.1.661217.3.579.2 .1258 1958 Unknown [id number] 2.16.840.1.004256.3.579.2 .1258 1958 Unknown [id number] 2.16.840.1.920616.3.579.2 .1258 1958 Unknown [id number] 2.16.840.1.916103.3.579.2 .1258 1958 Unknown [id number] 2.16.840.1.529484.3.579.2 .1258 1958 Unknown [id number] 2.16.840.1.421050.3.579.2 .1285 1958 Unknown [id number] 2.16.840.1.260886.3.579.2 .1285 1958 Unknown [id number] 2.16.840.1.388251.3.579.2 .1285 1958 Unknown [id number] 2.16.840.1.253818.3.579.2 .1285 1958 Unknown [id number] 2.16.840.1.426947.3.579.2 .1285 1958 Unknown [id number] 2.16.840.1.442236.3.579.2 .1285 1958 Unknown [id number] 2.16.840.1.651548.3.579.2 .1285 1958 Unknown [id number] 2.16.840.1.914050.3.579.2 .1286 1958 Unknown [id number] 2.16.840.1.891686.3.579.2 .1286 1958 Unknown [id number] 2.16.840.1.989079.3.579.2 .1286 1958 Unknown [id number] 2.16.840.1.083534.3.579.2 .1286 1958 Unknown [id number] 2.16.840.1.529874.3.579.2 .1286 1958 Unknown [id number] 2.16.840.1.741749.3.579.2 .1286 1958 Unknown [id number] 2.16.840.1.981586.3.579.2 .1286 1958 Unknown [id number] 2.16.840.1.684207.3.579.2 .128 1958 Unknown [id number] 2.16.840.1.800607.3.579.2 .1286 Medicare [id number] Unknown [facility] [id number] Unknown [id number] 2.16.840.1.580777.3.579.2 .531 Social History Date Type Detail Facility Start: 01-17-2021 End: 05-17-2023 Tobacco smoking status NHIS Never smoker [facility] Start: 01-17-2021 End: 05-17-2023 Tobacco use and exposure Never used [facility] Start: 01-17-2021 End: 04-09-2024 Alcohol intake Current drinker of alcohol (finding) [facility] Start: 01-17-2021 History SDOH Alcohol Frequency 1 [facility] Start: 01-17-2021 Alcohol Comment socially [facility] Start: 1960 Sex Assigned At Not on file [facility] Exposure to SARS-CoV -2 (event) Not sure [facility] Tobacco smoking status Never [facility] Start: 05-17-2023 End: 06-06-2023 Sex Assigned At Female [facility] Start: 05-17-2023 End: 06-06-2023 History of Social function [facility] Start: 06-06-2023 Alcohol Comment rarely--holida y or special occ [facility] Start: 08-09-2023 End: 10-13-2023 Alcohol intake Current non-drinker of alcohol (finding) [facility] Are you now , , , , never or living with a partner? [facility] How hard is it for y ou to pay for the very basics like food, housing, medical care, and heating Not very hard [facility] (I/We) worried wheth er (my/our) food would run out before (I/we) got money to buy more. DK or Refused [facility] Start: 1960 Sex Assigned At Female Bert [facility] Functional Status Date Assessment Result Facility 10-25-2023 Functional Status N/A [facility] 05-22-2023 Functional Status N/A [facility] 05-11-2023 Functional Status [facility] 02-22-2023 Functional Status N/A [facility] 09-21-2022 Functional Status N/A [facility] 09-13-2022 Functional Status N/A [facility] Clinical Notes 01-17-2021 to 05-01-2024 Juanito Barnard MD - 05/01/2024 10:00 AM Chioma Clements - 04/15/2024 7:28 AM Carmenza Maradiaga MD - 04/09/2024 9:33 AM Chioma Clements - 04/08/2024 9:38 AM EDTPatient Instructions Note Date & Type Note Facility 05-01-2024 History of Presen t illness Narrative Images from the original note were not included. [facility] UROLOGY NEW PATIENT CLINIC NOTE SERVICE DATE: 05/01/2024 NAME: Aislinn Wheeler REFERRED BY: No referring provider defined for this encounter. Consultation requested by Dr. Nolen for an opinion regarding urinary incontinence. My final recommendations will be communicated back to the requesting physician by way of shared Medical record or letter to requesting physician via US mail. CHIEF COMPLAINT Urinary urgency, urinary leakage HISTORY OF PRESENT ILLNESS Ms. Wheeler is a 63 year old female with a history of DM, rheumatoid arthritis who presents for evaluation for stress incontinence, severe urinary urgency over the past 1-2 years. Has progressively worsened. Never felt like she could hold very much urine, but the urgency/frequency certainly wasn't to this degree. Notes stress incontinence with any sort of activity. Uses 10+ pads during the daytime. Gets up in the middle of the night to change her pads. Even with the leakage, has urgency every 30 minutes or so during the daytime. On CIC once daily in the afternoon/evening and also as needed. Has multiple UTIs per month over the past year. Sxs with UTI include: dysuria, suprapubic pain. Sometimes resolve with OTC pyridium. Had a recent admission for UTI requiring antibiotics. Patient endorses Valsalva voiding towards the end of her stream, only on occasion. Retention w bl hydro in 2020 Small capacity poorly compliant bladder s/p Botox without improvement. BM 1-2x/week, no daily regimen. PMH: - History of poorly controlled DM (A1c previously 16.5) x1.5-2 years - insulin-dependent. Now better controlled now 7.0. Blood sugars 130s. - CKD (Cr 1.3-1.78, GFR 31-46) - Rheumatoid arthritis (no medications, previously on steroids but became hyperglycemic) - No prior SCI, traumatic injuries, or hx MS. No numbness/tingling/weakness. PSH: robotic partial nx (06/2023), hysterectomy for fibroids (20 years ago) Lives with granddaughter Here with daughter in law DIL is somewhat concerned about her memory and ability to cath around the clock without bladder sensation PAST MEDICAL HISTORY PAST MEDICAL HISTORY No [...] rarely--holiday or special occ Drug use: Never MEDICATIONS Current Outpatient Medications Medication Sig metoprolol succinate [...] current facility-administered medications for this visit. CURRENT ALLERGIES Allergies As of Date: 05/01/2024 Allergen Noted Reaction LATEX 02/05/2020 Rash Fully Assessed 05/01/2024 OBJECTIVE PHYSICAL EXAM: 05/01/24 1045 BP: 173/96 BP Site: Left Arm BP Position: Sitting BP Cuff Size: Large Adult Pulse: 74 There is no height or weight on file to calculate BMI. 05/01/24 1045 BP: 173/96 BP Site: Left Arm BP Position: Sitting BP Cuff Size: Large Adult Pulse: 74 General: pleasant Psych: euthymic, NAD Neuro: A&Ox3. CV: normal perfusion, hemodynamically stable Resp: normal effort DATA Labs Lab Results Component Value Date/Time WBC 6.44 09/03/2023 04:41 AM WBC 9.64 01/21/2021 07:12 AM HB 8.9 (L) 09/03/2023 04:41 AM HB 9.5 (L) 01/21/2021 07:12 AM HCT 28.7 (L) 09/03/2023 04:41 AM HCT 30.0 (L) 01/21/2021 07:12 AM PLT 334 09/03/2023 04:41 AM PLT 358 01/21/2021 07:12 AM NA 136 09/03/2023 04:41 AM NA 139 01/29/2021 12:40 PM K 5.0 09/03/2023 04:41 AM K 4.8 01/29/2021 12:40 PM CHLOR 103 09/03/2023 04:41 AM CHLOR 105 01/29/2021 12:40 PM CO2 23 09/03/2023 04:41 AM CO2 23 01/29/2021 12:40 PM BUN 22 (H) 09/03/2023 04:41 AM BUN 16 01/29/2021 12:40 PM CREAT 1.78 (H) 02/01/2024 02:29 PM CREAT 1.35 01/29/2021 12:40 PM Imaging reviewed ASSESSMENT/PLAN 1. Stage 3b chronic kidney disease (HCC) - ICD9: 585.3, ICD10: N18.32 (primary diagnosis) 2. Retention of urine - ICD9: 788.20, ICD10: R33.9 3. Type 2 diabetes mellitus with hyperglycemia, with long-term current use of insulin (HCC) - ICD9: 250.00, 790.29, V58.67, ICD10: E11.65, Z79.4 4. Other hydronephrosis - ICD9: 591, ICD10: N13.39 5. BURKE (stress urinary incontinence, female) - ICD9: 625.6, ICD10: N39.3 6. Bladder compliance low - ICD9: 596.52, ICD10: N31.8 63M with PMHx diabetes mellitus, renal mass s/p left partial Nx with CKD (GFR 30-46) and severe urinary urgency and stress incontinence -Discussed options (If GFR is adequate) bladder augment cystoplasty with catheterizable channel + BN fascial sling cystectomy with ileal conduit suprapubic tube +/- botox +/- bulking agent Discussed RBA of each option Risk of renal deterioration/metabolic derangements with aug, need for frequent cathing + irrigation (DIL is concerned about her memory and ability to manage this), channel complications, stones, etc SPT might not work but would be easily reversible She is concerned about cosmesis of conduit Would rec: -Cath q3-4h x1 week followed by repeat renal function panel -Virtual visit in 2 weeks -Daily miralax, PRN senna for chronic constipation Juanito Barnard MD [facility] Department of Urology I spent a total of 30 minutes on the date of the service which included preparing to see the patient, [id number] patient care, completing clinical documentation, obtaining and/or reviewing separately obtained history, performing a medically appropriate examination, counseling and educating the patient/family/caregiver, and ordering medications, tests, or procedures. >50% of time was devoted to patient counseling. documented in this encounter [facility] 05-01-2024 Note HNO ID: [id number] Author: JUANITO BARNARD MD Service: ? Author Type: Physician Type: Progress Notes Filed: 05/01/2024 12:12 Note Text: [facility] NEW PATIENT CLINIC NOTE SERVICE DATE: 05/01/2024 NAME: Aislinn Wheeler REFERRED BY: No referring provider defined for this encounter. Consultation requested by Dr. Nolen for an opinion regarding urinary incontinence. My final recommendations will be communicated back to the requesting physician by way of shared Medical record or letter to requesting physician via US mail. CHIEF COMPLAINT Urinary urgency, urinary leakage HISTORY OF PRESENT ILLNESS Ms. Wheeler is a 63 year old female with a history of DM, rheumatoid arthritis who presents for evaluation for stress incontinence, severe urinary urgency over the past 1-2 years. Has progressively worsened. Never felt like she could hold very much urine, but the urgency/frequency certainly wasn't to this degree. Notes stress incontinence with any sort of activity. Uses 10+ pads during the daytime. Gets up in the middle of the night to change her pads. Even with the leakage, has urgency every 30 minutes or so during the daytime. On CIC once daily in the afternoon/evening and also as needed. Has multiple UTIs per month over the past year. Sxs with UTI include: dysuria, suprapubic pain. Sometimes resolve with OTC pyridium. Had a recent admission for UTI requiring antibiotics. Patient endorses Valsalva voiding towards the end of her stream, only on occasion. Retention w bl hydro in 2020 Small capacity poorly compliant bladder s/p Botox without improvement. BM 1-2x/week, no daily regimen. PMH: - History of poorly controlled DM (A1c previously 16.5) x1.5-2 years - insulin-dependent. Now better controlled now 7.0. Blood sugars 130s. - CKD (Cr 1.3-1.78, GFR 31-46) - Rheumatoid arthritis (no medications, previously on steroids but became hyperglycemic) - No prior SCI, traumatic injuries, or hx MS. No numbness/tingling/weakness. PSH: robotic partial nx (06/2023), hysterectomy for fibroids (20 years ago) Lives with granddaughter Here with daughter in law DIL is somewhat concerned about her memory and ability to cath around the clock without bladder sensation PAST MEDICAL HISTORY PAST MEDICAL HISTORY No [...] rarely--holiday or special occ Drug use: Never MEDICATIONS Current Outpatient Medications Medication Sig metoprolol succinate [...] current facility-administered medications for this visit. CURRENT ALLERGIES Allergies As of Date: 05/01/2024 Allergen Noted Reaction LATEX 02/05/2020 Rash Fully Assessed 05/01/2024 OBJECTIVE PHYSICAL EXAM: 05/01/24 1045 BP: 173/96 BP Site: Left Arm BP Position: Sitting BP Cuff Size: Large Adult Pulse: 74 There is no height or weight on file to calculate BMI. 05/01/24 1045 BP: 173/96 BP Site: Left Arm BP Position: Sitting BP Cuff Size: Large Adult Pulse: 74 General: pleasant Psych: euthymic, NAD Neuro: AANDOx3. CV: normal perfusion, hemodynamically stable Resp: normal e (more content not included)... [facility] 05-01-2024 Note Patient Outreach (UR OLMN) LIAMBARBARAAISLINN Ashok ([id number]) 1960 F Date Time Provider Department 05/01/24 JUANITO BARNARD During your visit today, we recorded the following information about you: Allergies As of Date: 05/01/2024 Noted Allergy Reaction LATEX 02/05/2020 2 - Rash Comments: Added based on information entered during case entry, please review and add reactions, type, and severity as needed Date Reviewed: 05/01/2024 Reviewed by: Miranda Francisco OCCA - Fully Assessed Visit Diagnosis:Screening for genitourinary condition [Z13.89] Order(s):URINALYSIS, REFLEX MICROSCOPIC [YGN4371] Order #: [id number]. #:[id number] Prescriptions as of 05/06/2024 - metoprolol succinate ER (TOPROL XL) 50 [...] of breath. Problem List As Of Date 05/01/2024 Noted Resolved Ureterolithiasis [N20.1] 01/17/2021 Acute bilateral [...] without hematuria [N39.*08/31/2023 09/04/2023 Encounter Status:Closed by ALEX, PRODUSER on 05/06/24 [facility] 04-15-2024 Note HNO ID: [id number] Author: ?, ?, ? Service: ? Author Type: ? Type: Progress Notes Filed: 04/15/2024 07:29 Note Text: Incidental Lung Nodule Enrollment Outreach attempt: 3rd Attempt Outreach status: Complete Enrolled in Lung Nodule program: No Declined reason: Other Lung Nodule Program Location: [place] Two letter attempts, no response. Discharge letter sent. [facility] 04-15-2024 History of Presen t illness Narrative Incidental Lung Nodule Enrollment Outreach attempt: 3rd Attempt Outreach status: Complete Enrolled in Lung Nodule program: No Declined reason: Other Lung Nodule Program Location: [place] Two letter attempts, no response. Discharge letter sent. documented in this encounter [facility] 04-15-2024 Note Patient Outreach (PU LMMN) AISLINN WHEELER ([id number]) 1960 F Date Time Provider Department 04/15/24 CHIOMA DURÁN During your visit today, we recorded the following information about you: Chioma Durán 04/15/2024 7:29 AM Signed Incidental Lung Nodule Enrollment Outreach attempt: 3rd Attempt Outreach status: Complete Enrolled in Lung Nodule program: No Declined reason: Other Lung Nodule Program Location: [place] Two letter attempts, no response. Discharge letter [...] Encounter Status:Closed by CHIOMA DURÁN on 04/15/24 [facility] 04-09-2024 Note HNO ID: [id number] Author: CARMENZA NOLEN MD Service: ? Author [...] bladder with poor compliance and BURKE at CORRECTION of 100ml. Bladder remodeling without VUR. Valsalva [...] visit. Either the patient or their legal data entry representative has been informed of the risks and benefits of -- and alternatives to -- treatment through a remote evaluation and consents to proceed with the evaluation remotely. [facility] 04-09-2024 History of Presen t illness [...] bladder with poor compliance and BURKE at CORRECTION of 100ml. Bladder remodeling without VUR. Valsalva [...] visit. Either the patient or their legal data entry representative has been informed of the risks and benefits of -- and alternatives to -- treatment through a remote evaluation and consents to proceed with the evaluation remotely. documented in this encounter [facility] 04-08-2024 Note HNO ID: [id number] Author: ?, ?, ? Service: ? Author Type: ? Type: Progress Notes Filed: 04/08/2024 09:39 Note Text: Incidental Lung Nodule Enrollment Outreach attempt: 2nd Attempt Outreach status: Complete Enrolled in Lung Nodule program: Referred Lung Nodule outreach: Needs outreach Lung Nodule Program Location: [place] Two letter attempts [facility] 04-08-2024 History of Presen t illness Narrative Incidental Lung Nodule Enrollment Outreach attempt: 2nd Attempt Outreach status: Complete Enrolled in Lung Nodule program: Referred Lung Nodule outreach: Needs outreach Lung Nodule Program Location: [place] Two letter attempts documented in this encounter [facility] 04-08-2024 Note Patient Outreach (PU LMMN) AISLINN WHEELER ([id number]) 1960 F Date Time Provider Department 04/08/24 CHIOMA DURÁN During your visit today, we recorded the following information about you: Chioma Durán 04/08/2024 9:39 AM Signed Incidental Lung Nodule Enrollment Outreach attempt: 2nd Attempt Outreach status: Complete Enrolled in Lung Nodule program: Referred Lung Nodule outreach: Needs outreach Lung Nodule Program Location: [place] Two letter attempts Allergies As of Date: [...] Encounter Status:Closed by CHIOMA DURÁN on 04/08/24 [facility] 04-02-2024 Note HNO ID: [id number] Author: CARMENZA NOLEN MD Service: ? Author Type: Physician Type: Progress Notes Filed: 04/02/2024 11:52 Note Text: [facility] [...] bladder with poor compliance and BURKE at CORRECTION of 100ml. Bladder remodeling without VUR. Valsalva voiding with atonic detrusor. Will refer to consider bladder augmentation. 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 The bony and soft tissue structures are within normal. 147 ccs contrast were used to fill the bladder. The bladder outline is irregular/trabeculated and abnormal shaped appearing. There is no ureteral reflux. During the voiding phase there is abnormal bladder neck opening and urethra is not visualized. Bladder emptying is not visualized Read by - Carmenza Nolen MD [facility] 03-29-2024 Nurse Note [facility] UR[facility] LAB URODYNAMIC [...] allergy: No Females- Is patient : No Catalyst Operator Chief offered:Patient declines B/O UA: Yes, Negative for [...] Pt states an understanding of instructions given. [facility] 03-29-2024 Nurse Note [facility] UR[facility]NAMICS LAB URODYNAMIC [...] allergy: No Females- Is patient : No Catalyst Operator Chief offered:Patient declines B/O UA: Yes, Negative for [...] of instructions given. documented in this encounter [facility] 03-27-2024 Note HNO ID: [id number] Author: NURIA READ APRN.CNP Service: ? Author Type: Nurse Practitioner Type: Progress Notes Filed: 03/27/2024 14:36 Note Text: Incidental Lung Nodule Enrollment Outreach attempt: 1st Attempt Outreach status: Complete Enrolled in Lung Nodule program: Referred Lung Nodule outreach: Needs outreach Lung Nodule Program Location: [facility] 03-27-2024 History of Presen t illness Narrative Incidental Lung Nodule Enrollment Outreach attempt: 1st Attempt Outreach status: Complete Enrolled in Lung Nodule program: Referred Lung Nodule outreach: Needs outreach Lung Nodule Program Location: [facility] documented in this encounter [facility] 03-27-2024 Note Patient Outreach (PM M211) AISLINN WHEELER ([id number]) 1960 F Date Time Provider Department 03/27/24 NURIA READ [id number] During your visit today, we recorded the following information about you: Nuria Read APRN.STANDPIPE TENDER 03/27/2024 2:36 PM Signed Incidental Lung Nodule Enrollment Outreach attempt: 1st Attempt Outreach status: Complete Enrolled in Lung Nodule program: Referred Lung Nodule outreach: Needs outreach Lung Nodule Program Location: [facility] Allergies As of Date: 03/27/2024 [...] Encounter Status:Closed by NURIA READ on 03/27/24 [facility] 03-26-2024 Instructions Carmenza Nolen MD - 03/26/2024 11:31 AM EDT Images from the original note were not included. INFORMATION ON URODYNAMICS (BLADDER FUNCTION TEST) Getting Ready for the Test You do not have to fast before the test. Begin to drink 24-32 ounces of fluid (water, cranberry juice, milk, herbal tea) 90 minutes prior to the test so you arrive at the [facility] with the urge to empty your [...] your bladder when you arrive at the [facility]. Speak with a nurse if you feel you must empty your bladder. If you are taking antibiotics for a urinary tract infection (UTI) or bladder infection, notify your physician's office immediately. We may reschedule your bladder test. Bring a list of all prescribed and dema-ilx-ukedcea medications you are taking. If you should need assistance due to a language barrier or medical needs/condition, please notify the addictions counselor assistant when making your appointment and one will be provided for you ([phone]). If you are taking overactive bladder medications [...] test is finished. documented in this encounter [facility] 03-26-2024 Note HNO ID: [id number] Author: CARMENZA NOLEN MD Service: ? Author Type: Physician Type: Progress Notes Filed: 03/26/2024 11:54 Note Text: [facility] [...] her bladder. Had bladder botox injections at [facility] about 3 mo ago with no [...] Assessed 03/26/2024 PHYSICAL EXAM: Patient declined a scheduling representative General: No acute distress, well appearing : [...] and concerns were addressed. Carmenza Nolen MD [facility] 03-26-2024 History of Presen t illness Narrative [facility] [...] voiding- all valsalva voiding. No DO or BUKRE. Able to void 89cc and instilled 318cc. [...] her bladder. Had bladder botox injections at [facility] about 3 mo ago with no [...] Assessed 03/26/2024 PHYSICAL EXAM: Patient declined a scheduling representative General: No acute distress, well appearing : [...] Via bladder scan. documented in this encounter [facility] 03-26-2024 Note HNO ID: [id number] Author: MARIA TERESA JOHNSON MA Service: ? Author Type: Casino Floorperson Type: Progress Notes Filed: 03/26/2024 11:54 Note Text: Pt voided upon arrival. PVR = 205 ml Via bladder scan. Pt was doing ISC, but was told she could stop. Pt instructed to give a urine specimen. 2ND Repeat PVR PVR = 135 ml Via bladder scan. [facility] 02-26-2024 Telephone encounter Note Pt LVM asking for her CT scan results. Noted in pt chart was an unread message from regarding the most recent CT scan. LVM for pt and let her know about MyChart message and provided number if pt has any further questions. [facility] 02-26-2024 Miscellaneous Notes Pt LVM asking for her CT scan results. Noted in pt chart was an unread message from regarding the most recent CT scan. LVM for pt and let her know about MyChart message and provided number if pt has any further questions. documented in this encounter [facility] 02-12-2024 Telephone encounter Note Patient LVM requesting results from 02/01/24 CT Urogram. Will update medical team [facility] 02-12-2024 Miscellaneous Notes Patient LVM requesting results from 02/01/24 CT Urogram. Will update medical team documented in this encounter [facility] 02-01-2024 History of Presen t illness Narrative Radiology Service Progress Note DATE OF SERVICE: [...] Ref Range Status 02/01/2024 31 (L) >=60 mL/min/1.73m Final Comment: Estimated Glomerular Filtration Rate (eGFR) [...] DATE: February 01, 2024 TIME: 2:50 PM Radiology Service Progress Note PATIENT NAME: Aislinn [...] PATIENT PRESENTS WITH AN IMPLANTABLE OR ATTACHED RESOLUTE PROFESSIONAL: No RADIOLOGY DEPARTMENT: CT; Exam(s) Completed: Urogram PERIPHERAL IV DATA: Site assessment: Clean,Dry and Intact, Site disposition Discontinued SIGNED BY: RT Michael(R) February 01, 2024 2:50 PM documented in this encounter [facility] 02-01-2024 Note HNO ID: [id number] Author: HEIDY LINDA RN Service: Nursing Author [...] DATE: February 01, 2024 TIME: 2:50 PM [facility] 02-01-2024 Note HNO ID: [id number] Author: PRERNA THORPE RT(R) Service: ? Author Type: Technologist Type: [...] PATIENT PRESENTS WITH AN IMPLANTABLE OR ATTACHED RESOLUTE PROFESSIONAL: No RADIOLOGY DEPARTMENT: CT; Exam(s) Completed: Urogram PERIPHERAL IV DATA: Site assessment: Clean,Dry and Intact, Site disposition Discontinued SIGNED BY: RT Michael(R) February 01, 2024 2:50 PM [facility] 01-12-2024 Note HNO ID: [id number] Author: SANJANA CALLAWAY MA Service: ? Author Type: Casino Floorperson Type: Progress Notes Filed: 01/12/2024 14:43 Note Text: Post Void Residual done on patient with 211 cc residual volume remaining. notified. Sanjana Callaway MA [facility] 01-12-2024 History of Presen t illness Narrative Post Void Residual done on patient with 211 cc residual volume remaining. notified. Sanjana Callaway MA [facility] FOLLOW-UP PATIENT HISTORY AND PHYSICAL [...] Gait normal. Sensation grossly intact. IMPRESSION: Aislinn Wheeelr is a 63 yr old female with [...] urogram Will refer to Dr. Tamanna Ruiz APRN.STANDPIPE TENDER Attending Note I have personally performed a [...] Past Histories independently gathered by the clinical desktop support consultant and the remaining scribed note accurately describes my personal service to the patient. Dr. Taurus Ballard MD documented in this encounter [facility] 01-12-2024 Note HNO ID: [id number] Author: TAURUS BALLARD MD Service: ? Author Type: Physician Type: Progress Notes Filed: 01/12/2024 14:43 Note Text: [facility] FOLLOW-UP PATIENT HISTORY AND PHYSICAL EXAM PATIENT [...] urogram Will refer to Dr. Tamanna Ruiz APRN.STANDPIPE TENDER Attending Note I have personally performed a [...] MD Date: 01/12/2024 (more content not included)... [facility] 11-06-2023 Miscellaneous Notes Last Office Visit: 08/09/2024 Next Office Visit: 11/22/2023 Last Urine Drug Screen: Lab Results Component Value Date BENZOSCRN Negative 08/09/2023 OARRS appropriate documented in this encounter [facility] 11-06-2023 Telephone encounter Note Last Office Visit: 08/09/2024 Next Office Visit: 11/22/2023 Last Urine Drug Screen: Lab Results Component Value Date BENZOSCRN Negative 08/09/2023 OARRS appropriate [facility] 10-25-2023 Hospital Discharg e instructions [...] including vitamins, herbs, eye drops, creams, and kklq-isp-cfdestn medicines. Any problems you or family members [...] provider tells you to take them. Taking sqbs-wve-emlpicn medicines, vitamins, herbs, and supplements. General instructions [...] Follow these instructions at home: Medicines Take mhgn-baf-gmwmgix and prescription medicines only as told by [...] provider. Document Revised: 02/11/2022 Document Reviewed: 02/11/2022 [employer] Patient Education 2022 [employer]. Follow Up Care 09/26/2023 08:43:34 With:CATALINA VIRGEN, HEIDY Rodriguez, URL Address: [address] [facility] [place] [address] When: Unknown [facility] [place] 10-10-2023 Miscellaneous Notes Last OV: 08/12/23 Next OV: proc 10/13/23 OARRS appropriate: yes Last UDS: 08/12/23 Pharmacy: [facility] [place] michael documented in this encounter [facility] 10-10-2023 Telephone encounter Note Last OV: 08/12/23 Next OV: proc 10/13/23 OARRS appropriate: yes Last UDS: 08/12/23 Pharm[facility] [place] [email or web address] 09-27-2023 Miscellaneous Notes Summary: [facility] IRB# [id number] IRB# [id number]: Vascular events in patients undergoing same-day nonCardiac surgery - CHRISTOPHER PI: Mary Rojas MD, LETY, FASA. Outcomes Research Department. Anesthesia [place]. [facility]. Aislinn Wheeler was unavailable at the listed phone number. We will attempt to contact the patient through TSCA message. Drew Esqueda, Research Coordinator Research Coordinator documented in this encounter [facility] 09-26-2023 Miscellaneous Notes Summary: [facility] IRB# [id number] IRB# [id number]: Vascular events in patients undergoing same-day nonCardiac surgery - [facility] PI: Mary Rojas MD, LETY, FASA. Outcomes Research Department. Anesthesia [place]. [facility]. Aislinn Wheeler was unavailable at the listed phone number. We will attempt to contact the patient again at a later date. Drew Esqueda, Research Coordinator Research Coordinator documented in this encounter [facility] 09-07-2023 Miscellaneous Notes Last OV: 08/09/2023 Next OV: --- OARRS appropriate: yes Last UDS: 08/09/2023 Pharmacy: [facility] [place] Michael Patient left phone message requesting refill on [place] and Lyrica. Lyrica prescription signed 08/11/2023 has 1 refill. Per OARRS patient last filled Lyrica 08/11/2023. [place] prescription pended for review and signature. Patient's fill dated adjusted from 09/14/23 to 09/17/23 due to recent 3 day hospitalization. documented in this encounter [facility] 09-07-2023 Telephone encounter Note Last OV: 08/09/2023 Next OV: --- OARRS appropriate: yes Last UDS: 08/09/2023 Pharmacy: [facility] [place] Michael Patient left phone message requesting refill on [place] and Lyrica. Lyrica prescription signed 08/11/2023 has 1 refill. Per OARRS patient last filled Lyrica 08/11/2023. [place] prescription pended for review and signature. [facility] [employer] [facility] 09-07-2023 Telephone encounter Note Patient's fill dated adjusted from 09/14/23 to 09/17/23 due to recent 3 day hospitalization. [facility] [facility] 09-03-2023 Note HNO ID: [id number] Author: KRYSTA SULLIVAN MD Service: Hospital Medicine [...] -- 08/31/23 1115 activity - mobilize patient (sd,ar) VTE Prophylaxis: VTE prophylaxis appropriate SIGNATURE: Kyrsta Sullivan MD PATIENT NAME: Aislinn Wheeler DATE: September 03, 2023 TIME: 6:31 PM [facility] 09-02-2023 Note HNO ID: [id number] Author: KRYSTA SULLIVAN MD Service: Hospital Medicine [...] -- 08/31/23 1115 activity - mobilize patient (sd,ar) VTE Prophylaxis: VTE prophylaxis appropriate SIGNATURE: Krysta Sullivan MD PATIENT NAME: Aislinn Wheeler DATE: September 02, 2023 TIME: 2:31 PM [facility] 09-02-2023 Note HNO ID: [id number] Author: NOTE, INTERFACE, ? Service: ? Author Type: ? Type: Progress Notes Filed: 09/02/2023 02:20 Note Text: Epic Scheduled Downtime: 09/02/2023 1:00:00 AM to 09/02/2023 2:04:22 AM [facility] 09-01-2023 Note HNO ID: [id number] Author: MIKE LOUIS RN Service: Care Management Author Type: Registered Nurse Type: Care Mgt Progress Note Filed: 09/01/2023 15:30 Note Text: CARE MANAGEMENT WEEKEND PLANNING NOTE NO WEEKEND DISCHARGE Disposition: TBD Anticipated Discharge Date: No weekend DC anticipated Weekend Shipping Checker Pager #: Girish Rogers [phone] ANATOLIY UTI - repeat UA sent - bc pending Waiting on podiatry consult SIGNATURE: Mike Louis RN PATIENT NAME: Aislinn Wheeler DATE: September 01, 2023 TIME: 3:28 PM PAGER/CONTACT #: [phone] [facility] 09-01-2023 Note HNO ID: [id number] Author: NATHONY BARROW MD Service: Hospital Medicine Author Type: [...] -- 08/31/23 1115 activity - mobilize patient (sd,ar) VTE Prophylaxis: VTE prophylaxis appropriate SIGNATURE: Anthony Barrow MD PATIENT NAME: Aislinn Wheeler DATE: September 01, 2023 TIME: 11:36 AM [facility] 08-31-2023 History of Past i llness [...] of this encounter (statuses as of 09/27/2023) [facility] History of Past illness Narrative* Problem Noted Date Diagnosed Date Resolved Date Fever 08/31/2023 09/04/2023 Urinary tract infection without hematuria 08/31/2023 09/04/2023 Acute cystitis without hematuria 01/18/2021 01/21/2021 Pyelonephritis 01/17/2021 01/21/2021 Sepsis 01/17/2021 01/21/2021 Hyponatremia 01/17/2021 01/21/2021 Hyperkalemia 01/17/2021 09/04/2023 ANATOLIY (acute kidney injury) 01/17/2021 Hydronephrosis due to obstruction of ureter 01/17/2021 01/21/2021 documented as of this encounter (statuses as of 09/28/2023) [facility] History of Past illness Narrative* Problem Noted Date Diagnosed Date Resolved Date Fever 08/31/2023 09/04/2023 Urinary tract infection without hematuria 08/31/2023 09/04/2023 Acute cystitis without hematuria 01/18/2021 01/21/2021 Pyelonephritis 01/17/2021 01/21/2021 Sepsis 01/17/2021 01/21/2021 Hyponatremia 01/17/2021 01/21/2021 Hyperkalemia 01/17/2021 09/04/2023 ANATOLIY (acute kidney injury) 01/17/2021 Hydronephrosis due to obstruction of ureter 01/17/2021 01/21/2021 documented as of this encounter (statuses as of 09/28/2023) [facility]2024 NoteHNO ID: [id number] Author: TIN QUIÑONEZ LSW Service: Care Management Author Type: Animal Pathologist Type: Care Mgt Initial Assessment Filed: 08/31/2023 14:02 Note Text: CARE MANAGEMENT: ASSESSMENT AND DISCHARGE PLAN SERVICE DATE: August 31, 2023 SERVICE TIME: 1:42 PM PCP: Agusto Olmstead Primary Contact: Extended Emergency Contact Information Primary Emergency Contact: LOLA SEARS Mobile Relation: Grandchild Admission Status: Inpatient Insurance Provider: [facility]IC[facility] PPO Discharge Planning requested by: Per Department Practice Potential Transition Plans To Be Determined Advance Directives Current Advance Directive: None Cafeteria Counter Attendant Attempted to Assist with AD Completion: Yes Action: Education Provided Current Living Arrangements and Support Lives with: Family members, Children Type of Residence: Private Residence (House) Support: Family members How do you manage to accomplish the following: Independent: Ambulation;Bathe/Shower;Dress;Meals/Meal Prep;Going to the bathroom;Medication Management;Transportation to appointments/community Current Services/Equipment Current Post-Acute Service(s): None Discharge Planning Patient Goal(s): General wellness [place] of [place] Explained: [facility] of Choice Given: No Reason Not Given: [...] with pt at bedside. Pt lives in [facility] with her grandchildren (18, 17, and [...] 31, 2023 TIME: 1:42 PM CONTACT #: [id number] Evaluation note* Encounter Date Diagnosis Assessment Notes Treatment Notes Treatment Clinical Notes Jun, Vitamin B12 deficiency (ICD-10 - E53.8) [facility] Other 11-03-2023 NoteHNO ID: [id number] Author: Lakisha Kaye Service: ? Author Type: ? Type: Plan of Care Filed: 06/26/2023 9:53 AM Note Text: PHARMACY BEDSIDE DELIVERY SERVICE Patient Name: Aislinn Wheeler The marked outpatient medications were Filled at: [place] and delivered to the patient's bedside to [facility] Medication List START taking these medications [...] your Primary Care Provider. Lakisha Kaye PAGER: [phone] June 26, 2023 9:52 [facility]11-03-2023 Miscellaneous Notes* Telephone Encounter - Heidy Garcia RN - 06/23/2023 9:03 AM EDT Patient had left robotic partial nephrectomy by Dr. Ballard on 06/22/2023 Will call for surgical follow up once discharged documented in this encounterAv[facility]-2023 NoteHNO ID: [id number] Author: Taurus Ballard MD Service: Urology Author Type: Physician Type: Progress Notes Filed: 06/23/2023 1:37 PM Note Text: [facility] UROLOGY PROGRESS NOTE Name: Aislinn Wheeler Bed: [id number] Date: June 23, 2023 After Hours [facility] Service Pager: [phone] ASSESSMENT AND PLAN Aislinn Wheeler is a [...] La Fuente MD Urology Resident [facility] Pager [phone] SUBJECTIVE -c/o pain, had a BM, no [...] 0659 06/23/23 0700 - 06/24/23 0659 Shift 2670-8939 5663-8133 2246-7486 24 Hour Total 0815-5055 9321-8072 6457-3368 24 Hour Total INTAKE IV 1600 1600 Volume (mL) (lactated ringers iv infusion) 1000 1000 Volume (mL) (lactated ringers iv infusion) 600 600 Shift Total 1600 1600 OUTPUT Urine 300 725 061 9348 OR Urine Output 300 300 Output ( Indwelling Urinary Catheter 06/22/23 1130 Chaves 16 Fr) 373 607 6274 Tubes 20 40 60 Drain/Tube Output (Drain/Tube 06/22/23 1333 Lex Vega Right Lower Quadrant Abdomen Drain #1) 20 40 60 # of BMs Number of BMs 1 x 1 x Blood 50 50 Estimated Blood loss 50 50 Shift Total 350 194 597 2595 Weight (kg) 59 59 59 59 59 [...] We will call with pathology. Taurus Ballard [facility]11-02-2023 NoteHNO ID: [id number] Author: Linda Nicholson RN Service: Nursing Author Type: Registered Nurse Type: Nursing Progress Note Filed: 06/22/2023 2:15 PM Note Text: surgical dressing: surgical glue, [facility]11-02-2023 NoteHNO ID: [id number] Author: Lola Be APRN.IT INFRASTRUCTURE ARCHITECT Service: ? 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 Will try again. documented in this encounterAvita [facility]10-19-2023 Evaluation note* Encounter Date Diagnosis Assessment [...] (ICD-10 - Z68.25) May, Other see above [facility] Other 10-02-2023 Note [id number]#1.00CD:127[facility] 05-22-2023 NoteCystoscopy with Botox injection ? [...] if you have a fever over 100 degrees.[facility] 05-22-2023 Hospital Discharge instructions Patient Education [...] Up Care 05/03/2023 10:48:47 With:Lisa Porras Address[address] [place] [address] [phone] Business (1) [address], [address] [address] [phone] Business (1) When: Unknown Comments:Office to schedule follow up in 1 month with [facility]09-28-2023 Evaluation note* Encounter Date Diagnosis Assessment Notes [...] 24.0-24.9, adult (ICD-10 - Z68.24) see above [facility] Other [id number] Miscellaneous Notes* Telephone Encounter - Agusto Faulkner - 05/18/2023 12:57 PM EDT Consult notes sent back to Dr. Lisa Porras , phone [phone]. [address] Ballard office. documented in this encounterAvita [facility]09-27-2023 NoteHNO ID: [id number] Author: Taurus Ballard MD Service: ? Author Type: Physician Type: Progress Notes Filed: 05/17/2023 1:35 PM Note Text: [facility] FOLLOW-UP PATIENT HISTORY AND PHYSICAL [...] 1.92 01/19/[address] scan (outside records) [facility] 09/28/21 IMPRESSION: Since the prior [...] threatening or minor complicatio (more content not included)...[place] [id number] Hospital Discharge instructions Patient Education 02/22/2023 09:35:15 [...] provider. Document Revised: 12/16/2021 Document Reviewed: 12/16/2021 [employer] Patient Education 2022 [employer]. Follow Up Care 09/13/2022 14:59:43 With:Vern TAVERAS, EMELINA Hernandez, URO Address: When:Within 2 Month(s) Comments:w/ RIVAS [facility] 05-09-2023 Evaluation note* Encounter Date [...] N28.1) Patient follows with urology clinic in [facility] for enlarging left renal cyst. December, [...] her blood pressure persistently more than 150/90. [facility] Other 02-01-2023 Hospital Discharge instructions Patient Education [...] 07/24/2013 Document Revised: 03/27/2019 Document Reviewed: 03/27/2019 [employer] Patient Education 2020 [employer] Follow Up Care 09/14/2022 14:44:34 With:Vern TAVERAS, EMELINA Hernandez, URO Address: When: Unknown [facility] 01-24-2023 Hospital Discharge instructions Patient Education [...] fried and sweet foods. General instructions Take olte-xgp-bqvpgnl and prescription medicines only as told by [...] 06/03/2010 Document Revised: 11/28/2019 Document Reviewed: 08/23/2018 [employer] Patient Education 2020 [employer]. Follow Up Care 08/24/2022 11:21:49 With:CATALINA PAHEIDY Lake, URL Address: [address] [place] [address] When: Unknown [facility] 06-09-2021 Miscellaneous Notes* Telephone Encounter - Barbara Talbot - 01/27/2021 10:30 AM EDT Scheduled 02/15 * Telephone Encounter - Barb Silva MD - 01/27/2021 9:40 AM EDT Please schedule hospital follow up with Guy Overton Deitzer, or Sasha. Virtual ok documented in this encounterAvita Health [facility]06-03-2021 NoteHNO ID: [id number] Author: Griselda Diaz (Supervisor Stave Cutting) Service: ? Author Type: ? Type: Plan [...] Generic drug: insulin detemir U-100 Griselda Diaz (Supervisor Stave Cutting) PAGER: paris January 21, 2021 4:27 [facility] NoteHNO ID: [id number] Author: ELIZABETH Kothari Service: Care Management Author Type: Animal Pathologist Type: Care Mgt Progress Note Filed: 01/21/2021 1:39 PM Note Text: CARE MANAGEMENT DISCHARGE NOTE SERVICE DATE: 01/21/2021 SERVICE TIME: 1300 LOS: 4 days Admission Date: 01/17/2021 DISCHARGE ARRANGEMENT (list agency and phone number) Discharge Arrangement: Home;Home Assisted Care: Nursing;PT;[facility] ASSESSMENT: Maira Davila to transport home [phone] HANDOFF COMMUNICATION: Handoff to: Other Caregiver;Primary Care Physician Primary Care Physician Name/Phone: Madeline Jordan PA-C Other Caregiver Name/Phone: [facility] TRANSPORTATION ARRANGEMENTS: Transportation Arrangements: Car (Family to transport) ADDITIONAL CONTACT RESOURCES: [facility] not able to accept. Curtis of choice provided and sent to first available to accept to her service area. [facility] willing to accept. Pt concerned she does not have [facility] to cover services. I spoke with maira who plans on paying for services out of pocket until pt's insurance becomes active February 18, 2021 Discharge Information Row Name ED to Hosp-Admission (Current) from 01/17/[address] Care Agency [facility] Fax# Care to start after your appointment with internal medicine on 01/25/2021 for additional orders. The agency will be contacting you to set this up [employer] Equipment Needed Walker was delivered to hospital room prior to discharge [facility] willing to accept pending pt has her initial appointment with internal medicine on 01/25/2021. Both pt and maira Davila were advised. Dr Hansen also provided script for outpt therapy should home care fall through or cost too high for maira to cover. Lola to call [place] to discuss further. Walker was delivered to room and prescription was sent to [facility]. 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 No other homegoing needs. SIGNATURE: ELIZABETH Kothari PATIENT NAME: Aislinn Wheeler DATE: January 21, 2021 TIME: 1:32 PM PAGER/CONTACT #: [phone] [id number] NoteHNO ID: [id number] Author: Derik Daniel Service: Care Management Author Type: Resource Center Operations Research Scientist Type: Care Mgt Progress Note Filed: 01/21/2021 11:24 AM Note Text: CARE MANAGEMENT PROGRESS NOTE SERVICE DATE: 01/21/2021 SERVICE TIME: 950 LOS: 4 days IMM Follow Up Copy Given: Yes Copy given to:: Patient Method: In Person SIGNATURE: Derik Daniel PATIENT NAME: Aislinn Wheeler DATE: January 21, 2021 TIME: 11:23 AM PAGER/CONTACT #: [phone] [id number] NoteHNO ID: [id number] Author: Ailyn Salas RN Service: Care Management Author Type: Registered Nurse Type: Care Mgt Progress Note Filed: 01/20/2021 3:29 PM Note Text: CARE MANAGEMENT PROGRESS NOTE SERVICE DATE: 01/20/2021 SERVICE TIME: 3:09 PM LOS: 3 days Curtis of Choice Given: Yes Level of Care Discussed: Home Care Financial Disclosure Provided: No Financial Disclosure Comments: [facility] does not service area Provider List: [...] 20, 2021 TIME: 3:09 PM PAGER/CONTACT #: [phone] [id number] NoteHNO ID: [id number] Author: Inna Hansen DO Service: Hospital Medicine Author Type: Physician Type: Progress Notes Filed: 01/20/2021 12:37 PM Note Text: DEPARTMENT OF HOSPITAL MEDICINE PROGRESS NOTE SERVICE DATE: 01/20/2021 SERVICE TIME: 10:37 AM Hospital Medicine/Primary Attending: Inna Hansen DO NIGHT AND WEEKEND COVERAGE: DELMY COVERAGE: Days: [phone], please contact via [employer] Fundsage Nights: [phone], please page CC Hospitalist Night coverage pager [phone] Subjective INTERVAL HPI: nausea and vomiting this [...] Non-Pharmacologic VTE Prophylaxis/Anticoagulants 01/17/212214 pneumatic compression stockings (sd,ar) 01/17/212214 activity - mobilize patient ([place], [place]) VTE Prophylaxis: VTE prophylaxis appropriate Disposition: TBPrimo Hansen DO January 20, 2021 10:39 [facility] CenterQutrjbkl25-89-6378 NoteHNO ID: [id number] Author: Benjamin Bernal MD Service: Urology Author [...] Wendy Bernal MD January 19, 2021 4:12 [facility]Hjwfgdew40-16-8990 NoteHNO ID: [id number] Author: Shelby Lucero, DianaD Service: Pharmacy Author Type: Pharmacist Type: Plan of Care Filed: 01/19/2021 11:02 AM Note Text: PHARMACY MEDICATION REVIEW Patient Name: Aislinn Wheeler : 1960 The following medications were updated within the HOISTING ENGINE OPERATOR medication list: Medications ADDED to HOISTING ENGINE OPERATOR medication list ? Albuterol HFA (replaced nebs) ? Levemir (replaced Lantus) Medications CHANGED on HOISTING ENGINE OPERATOR medication list ? Lyrica (added instructions) ? Symbicort (added instructions) Medications REMOVED from HOISTING ENGINE OPERATOR medication list ? Diltiazem ? Cymbalta [...] nothing too big . Call placed to [facility] pharmacy to clarify prescribed dose of insulin, and the only prescription for insulin [facility] has on file is for Relion 70/30 inject 25 units BID. [facility] pharmacist states this was prescribed 02/19/2020 but never picked up. The below information represents the best possible medication history: Yes Medication history completed by: Pharmacist: Shelby Lucero PharmD Source of history: Patient: Reliability of source: Appears reliable, clearly identified: Medication name and Pharmacy records: [employer] data, [facility] pharmacy (phone call) Medication nonadherence identified: Unable to assess - it is clear the patient is noncompliant with her medications (admits she has been off her meds, no insulin fills at [facility] despite patient report), but at this time unable to assess reason for nonadherence. Reconciliation completed: Yes All HOISTING ENGINE OPERATOR medications addressed by LIP and Medication reconciliation completed by: Shelby Lucero PharmD Medications with dose or frequency intentionally adjusted at admission: ? [place] modified to 5/325 mg q6h PRN New medications at admission: ? Ceftriaxone Note patient ordered insulin regimen (Lantus 15 units QHS + sliding scale Humalog) and based on blood glucose readings, this is appropriate Patient interested in Bedside Delivery Services or using OP Pharmacy at discharge? Unable to assess Preferred outpatient pharmacy: [id number] [place] [address] - [address] [facility] - [phone] Allergies: Latex Rash Comment:Added based on information [...] instructed twice daily. Shelby Lucero, PharmD 01/19/2021von [id number] NoteHNO ID: [id number] Author: Inna Hansen DO Service: Hospital Medicine Author Type: Physician Type: Progress Notes Filed: 01/19/2021 2:24 PM Note Text: DEPARTMENT OF HOSPITAL MEDICINE PROGRESS NOTE SERVICE DATE: 01/19/2021 SERVICE TIME: 9:30 AM Hospital Medicine/Primary Attending: Inna Hansen DO NIGHT AND WEEKEND COVERAGE: DELMY COVERAGE: Days: [phone], please contact via Wide [employer] Nights: [phone], please page CC Hospitalist Night coverage pager [phone] Subjective INTERVAL HPI: no overnight events. Denies [...] Most recent imaging Assessment/Plan Problem List Sepsis ([facility]) POA: Yes Pyelonephritis POA: Yes Hydronephrosis due to obstruction of ureter POA: Yes Acute cystitis without hematuria POA: Unknown Acute bilateral obstructive uropathy POA: Yes Hyponatremia POA: Yes ANATOLIY (acute kidney injury) ([facility]) POA: Yes Hyperkalemia POA: Yes Principal Problem: Sepsis ([facility]) Pyelonephritis Complicated UTI Hydronephrosis due to obstruction [...] Non-Pharmacologic VTE Prophylaxis/Anticoagulants 01/17/212214 pneumatic compression stockings (sd,ar) 01/17/212214 activity - mobilize patient ([place] VTE Prophylaxis: VTE prophylaxis appropriate Disposition: Home Discussed with granddaughter Lola by phone with patient's permission. Inna Hansen DO January 19, 2021 9:33 [facility] [id number] History of Past illness Narrative* Problem Noted Date Resolved Date Acute cystitis without hematuria 01/18/2021 01/21/2021 Pyelonephritis 01/17/2021 01/21/2021 Sepsis 01/17/2021 01/21/2021 Hyponatremia 01/17/2021 01/21/2021 Hyperkalemia 01/17/2021 01/21/2021 Hydronephrosis due to obstruction of ureter 12/2101/21/2021 documented as of this encounter (statuses as of 01/27/2021) [facility] History of Past illness Narrative* Problem Noted Date Diagnosed Date Resolved Date Acute cystitis without hematuria 01/18/2021 01/21/2021 Pyelonephritis 01/17/2021 01/21/2021 Sepsis 01/17/2021 01/21/2021 Hyponatremia 01/17/2021 01/21/2021 Hyperkalemia 01/17/2021 01/21/2021 Hydronephrosis due to obstruction of ureter 01/17/2021 01/21/2021 documented as of this encounter (statuses as of 06/09/2023) [facility] History of Past illness Narrative* Problem Noted Date Diagnosed Date Resolved Date Acute cystitis without hematuria 01/18/2021 01/21/2021 Pyelonephritis 01/17/2021 01/21/2021 Sepsis 01/17/2021 01/21/2021 Hyponatremia 01/17/2021 01/21/2021 Hyperkalemia 01/17/2021 01/21/2021 Hydronephrosis due to obstruction of ureter 01/17/2021 01/21/2021 documented as of this encounter (statuses as of 06/15/2023) [facility] History of Past illness Narrative* Problem Noted Date Diagnosed Date Resolved Date Acute cystitis without hematuria 01/18/2021 01/21/2021 Pyelonephritis 01/17/2021 01/21/2021 Sepsis 01/17/2021 01/21/2021 Hyponatremia 01/17/2021 01/21/2021 Hyperkalemia 01/17/2021 01/21/2021 Hydronephrosis due to obstruction of ureter 01/17/2021 01/21/2021 documented as of this encounter (statuses as of 06/19/2023) [facility] History of Past illness Narrative* Problem Noted Date Diagnosed Date Resolved Date Acute cystitis without hematuria 01/18/2021 01/21/2021 Pyelonephritis 01/17/2021 01/21/2021 Sepsis 01/17/2021 01/21/2021 Hyponatremia 01/17/2021 01/21/2021 Hyperkalemia 01/17/2021 01/21/2021 Hydronephrosis due to obstruction of ureter 01/17/2021 01/21/2021 documented as of this encounter (statuses as of 06/23/2023) [facility] of Past illness Narrative* Problem Noted Date Diagnosed Date Resolved Date Acute cystitis without hematuria 01/18/2021 01/21/2021 Pyelonephritis 01/17/2021 01/21/2021 Sepsis 01/17/2021 01/21/2021 Hyponatremia 01/17/2021 01/21/2021 Hyperkalemia 01/17/2021 01/21/2021 Hydronephrosis due to obstruction of ureter 01/17/2021 01/21/2021 documented as of this encounter (statuses as of 07/05/2023) [facility] NoteHNO ID: [id number] Author: Inna Hansen DO Service: Hospital Medicine Author Type: Physician Type: Progress Notes Filed: 01/18/2021 4:10 PM Note Text: DEPARTMENT OF HOSPITAL MEDICINE PROGRESS NOTE SERVICE DATE: 01/18/2021 SERVICE TIME: 8:57 AM Hospital Medicine/Primary Attending: Inna Hansen DO NIGHT AND WEEKEND COVERAGE: DELMY COVERAGE: Days: [phone], please contact via Wide [employer] Nights: [phone], please page CC Hospitalist Night coverage pager [phone] Subjective INTERVAL HPI: no overnight events. Denies [...] Yes Hyperkalemia POA: Yes Principal Problem: Sepsis ([facility]) Pyelonephritis Complicated UTI Hydronephrosis due to obstruction [...] Non-Pharmacologic VTE Prophylaxis/Anticoagulants 01/17/212214 pneumatic compression stockings ([place]) 01/17/212214 activity - mobilize patient ([place] VTE Prophylaxis: VTE prophylaxis appropriate Disposition: Home SIGNATURE: Inna Hansen DO PATIENT NAME: Aislinn Wheeler DATE: January 18, 2021 TIME: 8:57 [facility] CenterGgbktwuq31-54-1461 NoteHNO ID: [id number] Author: Taurus Ballard MD Service: Urology Author [...] cause of her urinary retention. Taurus Ballard [facility]Th[facility]wn[facility]-3636 NoteHNO ID: [id number] Author: RT Dayanara(R) Service: Radiology Author Type: Epic Anesthesia Analyst Type: Progress Notes Filed: 01/17/2021 8:04 PM [...] BY: RT Dayanara(R) January 17, 2021 8:03 [facility]Cqgcxpwu13-20-5972 NoteHNO ID: [id number] Author: RT Dayanara(R) Service: Radiology Author Type: Epic Anesthesia Analyst Type: Progress Notes Filed: 01/17/2021 5:30 PM [...] BY: RT Dayanara(R) January 17, 2021 5:30 [facility]burgMaqxgmhu08-72-8072 NoteHNO ID: [id number] Author: RT Zaynab(R) Service: Radiology Author Type: Epic Anesthesia Analyst Type: Progress Notes Filed: 01/17/2021 4:23 PM [...] Workman RT (R) January 17, 2021 4:22 [facility]burgNxyutzql11-79-9439 NoteHNO ID: [id number] Author: AHSAN Barlow Service: ? Author Type: Clinical Epic Anesthesia Analyst Type: Progress Notes Filed: 01/17/2021 4:19 PM [...] BY: AHSAN Dozier January 17, 2021 4:19 [facility] Future Appointments Appointment Date:12/13/2022 03:00:00 PM Scheduled Provider:HEIDY ARNOLD PA-C Location:[facility] Appointment Type:URO Office Visit [facility] evaluation + Plan note Future Appointments Appointment Date:10/26/2022 10:00:00 AM Scheduled Provider:Lisa Porras MD Location:[facility] Appointment Type:URO Office Visit Appointment Date:12/13/2022 03:00:00 PM Scheduled Provider:HEIDY ARNOLD PA-C Location:[facility] Appointment Type:URO Office Visit [facility] evaluation + Plan note Future Appointments Appointment Date:05/03/2023 10:00:00 AM Scheduled Provider:Lisa Porras MD Location:[facility] Appointment Type:URO Office Visit [facility] evaluation + Plan note Future Appointments Appointment Date:05/03/2023 10:00:00 AM Scheduled Provider:Lisa Porras MD Location:[facility] Appointment Type:URO Office Visit Diagnostic Tests Pending * [facility]ments Appointment Date:05/15/2023 12:30:00 PM Scheduled Provider: Location:[facility] Appointment Type:Urology CALL PAT FT Appointment Date:05/22/2023 10:30:00 AM Scheduled Provider: Location:[facility] Appointment Type:Urology FT Diagnostic Tests Pending * [facility] Future Appointments Appointment Date:06/28/2023 10:45:00 AM Scheduled Provider:Lisa Porras MD Location:[facility] Future Appointments Appointment Date:06/28/2023 10:45:00 AM Scheduled Provider:Lisa Porras MD Location:[facility] Appointment Type:URO Office Visit Diagnostic Tests Pending * Urine Culture [facility] Future Appointments Appointment Date:07/18/2023 11:20:00 AM Scheduled Provider:HEIDY ARNOLD PA-C Location:[facility] Appointment Type:URO Office Visit [facility] evaluation + Plan note Future Appointments Appointment Date:10/10/2023 11:40:00 AM Scheduled Provider:HEIDY ARNOLD PA-C Location:[facility] Appointment Type:URO Office Visit [facility] evaluation noteNo InformationNosaint [facility] StudyRoom Other Evaluation note* Diagnosis Kidney cyst, acquired- Primary Acquired cyst of kidney documented in this encounter [facility] Diagnosis Reflex sympathetic dystrophy of right upper extremity documented in this encounter [facility] noteNo assessment information [facility] Work Phone: Evaluation note* Diagnosis Reflex sympathetic dystrophy of right upper extremity Complex regional pain syndrome type 1 of right upper extremity documented [facility] this [facility]* Diagnosis Reflex sympathetic dystrophy of right upper extremity Complex regional pain syndrome type 1 of right upper extremity documented in this encounter [facility] Diagnosis Other hydronephrosis- Primary Screening for genitourinary condition Screening for other and unspecified genitourinary condition documented [facility] this [facility] Diagnosis Retention of urine- Primary Retention of urine, unspecified Screening for genitourinary condition Screening for other and unspecified genitourinary condition Type 2 diabetes mellitus with hyperglycemia, with long-term current use of insulin ([facility]) BURKE (stress urinary incontinence, female) Female stress incontinence documented in this encounter [facility] Diagnosis Lung nodule- Primary Solitary pulmonary nodule documented in this [facility] Diagnosis Stress incontinence- Primary Female stress incontinence Dysfunctional voiding of urine Unspecified disorder of urethra and urinary tract documented in this encounter [facility] Diagnosis Preop examination- Primary [...] [facility] Diagnosis Preop examination- Primary Preoperative examination, [...] hyperglycemia, with long-term current use of insulin ([facility]) Other hydronephrosis documented [facility] this [facility] Diagnosis Preop examination- Primary Preoperative examination, [...] hyperglycemia, with long-term current use of insulin ([facility]) Stage 3b chronic kidney disease (HCC)- Primary Retention of urine Retention of urine, unspecified Type 2 diabetes mellitus with hyperglycemia, with long-term current use of insulin ([facility]) Other hydronephrosis BURKE (stress urinary incontinence, female) Female stress incontinence Bladder compliance low Low bladder compliance [facility] this [facility] Diagnosis Preop examination- Primary Preoperative examination, [...] hyperglycemia, with long-term current use of insulin ([facility]) Screening for genitourinary condition Screening for other and unspecified genitourinary condition documented in this encounter [facility] general Narrative - Reported* Type Description Date [...] SURGERY Hospitalization History DKA 2014 Hospitalization History [facility] 05/2022 [facility] Other History general Narrative - Reported* Type [...] SURGERY Hospitalization History DKA 2014 Hospitalization History [facility] 05/2022 [facility] Other Hospital course Narrative No data available for this section [facility] Hospital Discharge instructions No data available for this section [facility] InstructionsNot on filedocumented in this encounter [facility] SystemInstructionsNot on filedocumented in this encounter [email or web address] note No data available for this section [facility] reason for referral (narrative)* Diagnostic Procedure Only (Routine) - Pending Review Specialty Diagnoses / Procedures Referred By Danny t Referred To Contact US IMAGING Diagnoses Kidney cyst, acquired Procedures US KIDNEY/BLADDER US RETROPERITONEAL REAL TIME W/IMAGE COMPLETE Taurus Ballard MD [address] [place] [address] [place] [id number] Referral ID Status Reason Start Date Expiration Date Visits Requested Visits Authorized [id number] Pending Review Auto-Generat ed Referral 10/05/2023 08/03/2024 1 1 [facility] for referral (narrative)* Outpatient Procedure (Routine) - New Request Specialty Diagnoses / Procedures Referred By Danny hensley Referred To Contact [facility] Diagnoses Retention of urine BURKE (stress urinary incontinence, female) Procedures FLUROURODYNAMICS WITH EMG EMG STDS ANAL/URTL SPHNCTR OTH/THN NDL Carmenza Nolen MD [address] [place] [address] [place] [address] Referral ID Status Reason Start Date Expiration Date Visits Requested Visits Authorized [id number] New Request Auto-Generat ed Referral 03/26/2024 03/26/2025 1 [facility] NarrativeReferral Agusto Aysha, New pt Type 2 IDDM apt with [employer]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, 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, BC-ADMNorth [facility] Other Summary Purpose Family History No Family [...] FoundDocuments on File Type Date Recorded 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 Advance Directive(s) 01/17/2021 3:49 PM Reason for Referral Specialty Diagnoses / Procedures Referred By Danny hensley Referred To Contact CT IMAGING Diagnoses Other hydronephrosis Procedures CT UROGRAM WO/W IVCON CT ABD & PELVIS W/WO CONTRST 1+ BODY REGNS Taurus Ballard MD [address] [id number] [place] [address] Referral ID Status Reason Start Date Expiration Date Visits Requested Visits Authorized [id number] Pending Review Auto-Generat ed Referral 01/19/2024 02/10/2025 1 1 Referred by: Vern TAVERAS, Lisa Montiel Chief Complaint and Reason for Visit Chief Complaint Renal 4 Month Follow Up Additional Source Comments INFORMATION SOURCE (unrecogn ized section and content) DATE CREATED AUTHOR 01/23/2021 [facility] DATE CREATED AUTHOR AUTHOR'S ORGANIZ ATION 01/04/2023 [facility] DATE CREATED AUTHOR AUTHOR'S ORGANIZ ATION 10/19/2023 [facility] DATE CREATED AUTHOR AUTHOR'S ORGANIZ ATION 11/03/2023 Zaragoza Reeves [facility] DATE CREATED AUTHOR AUTHOR'S ORGANIZ ATION 03/05/2024 [facility] DATE CREATED AUTHOR AUTHOR'S ORGANIZ ATION 04/02/2024 [facility] DATE CREATED AUTHOR AUTHOR'S ORGANIZ ATION 04/18/2024 [facility] DATE CREATED AUTHOR AUTHOR'S ORGANIZ ATION 04/25/2024 [facility] DATE CREATED AUTHOR AUTHOR'S ORGANIZ ATION 04/29/2024 [facility] DATE CREATED AUTHOR AUTHOR'S ORGANIZ ATION 05/05/2024 [facility] DATE CREATED AUTHOR AUTHOR'S ORGANIZ ATION 05/06/2024 [facility] Source Comments (unrecognize d section and content) In the event this informatio n is protected by the Federal Confidentiality of Alcohol and Drug Abuse Patient Records regulations: The Federal rules restrict any use of the information to criminally investigate or prosecute any alcohol or drug abuse patient.[facility] the event this information is protected by the Federal Confidentiality of Alcohol and Drug Abuse Patient Records regulations: The Federal rules restrict any use of the information to criminally investigate or prosecute any alcohol or drug abuse patient.[facility] Hospital[facility] the event this information is protected by the Federal Confidentiality of Alcohol and Drug Abuse Patient Records regulations: The Federal rules restrict any use of the information to criminally investigate or prosecute any alcohol or drug abuse patient.[facility] Hospital[facility] the event this information is protected by the Federal Confidentiality of Alcohol and Drug Abuse Patient Records regulations: The Federal rules restrict any use of the information to criminally investigate or prosecute any alcohol or drug abuse patient.[facility] Hospital[facility] the event this information is protected by the Federal Confidentiality of Alcohol and Drug Abuse Patient Records regulations: The Federal rules restrict any use of the information to criminally investigate or prosecute any alcohol or drug abuse patient.[facility] Hospital[facility] the event this information is protected by the Federal Confidentiality of Alcohol and Drug Abuse Patient Records regulations: The Federal rules restrict any use of the information to criminally investigate or prosecute any alcohol or drug abuse patient.[facility] Hospital[facility] the event this information is protected by the Federal Confidentiality of Alcohol and Drug Abuse Patient Records regulations: The Federal rules restrict any use of the information to criminally investigate or prosecute any alcohol or drug abuse patient.[facility] Hospital[facility] the event this information is protected by the Federal Confidentiality of Alcohol and Drug Abuse Patient Records regulations: The Federal rules restrict any use of the information to criminally investigate or prosecute any alcohol or drug abuse patient.[facility] Hospital[facility] the event this information is protected by the Federal Confidentiality of Alcohol and Drug Abuse Patient Records regulations: The Federal rules restrict any use of the information to criminally investigate or prosecute any alcohol or drug abuse patient.[facility] Hospital[facility] the event this information is protected by the Federal Confidentiality of Alcohol and Drug Abuse Patient Records regulations: The Federal rules restrict any use of the information to criminally investigate or prosecute any alcohol or drug abuse patient.[facility] Hospital[facility] the event this information is protected by the Federal Confidentiality of Alcohol and Drug Abuse Patient Records regulations: The Federal rules restrict any use of the information to criminally investigate or prosecute any alcohol or drug abuse patient.[facility] Hospital[facility] the event this information is protected by the Federal Confidentiality of Alcohol and Drug Abuse Patient Records regulations: The Federal rules restrict any use of the information to criminally investigate or prosecute any alcohol or drug abuse patient.[facility] Hospital[facility] the event this information is protected by the Federal Confidentiality of Alcohol and Drug Abuse Patient Records regulations: The Federal rules restrict any use of the information to criminally investigate or prosecute any alcohol or drug abuse patient.[facility] Hospital[facility] the event this information is protected by the Federal Confidentiality of Alcohol and Drug Abuse Patient Records regulations: The Federal rules restrict any use of the information to criminally investigate or prosecute any alcohol or drug abuse patient.[facility] Hospital[facility] the event this information is protected by the Federal Confidentiality of Alcohol and Drug Abuse Patient Records regulations: The Federal rules restrict any use of the information to criminally investigate or prosecute any alcohol or drug abuse patient.[facility] Hospital[facility] the event this information is protected by the Federal Confidentiality of Alcohol and Drug Abuse Patient Records regulations: The Federal rules restrict any use of the information to criminally investigate or prosecute any alcohol or drug abuse patient.[facility] HospitalIn the event this information is protected by the Federal Confidentiality of Alcohol and Drug Abuse Patient Records regulations: The Federal rules restrict any use of the information to criminally investigate or prosecute any alcohol or drug abuse patient.[facility] HospitalIn the event this information is protected by the Federal Confidentiality of Alcohol and Drug Abuse Patient Records regulations: The Federal rules restrict any use of the information to criminally investigate or prosecute any alcohol or drug abuse patient.[facility] HospitalIn the event this information is protected by the Federal Confidentiality of Alcohol and Drug Abuse Patient Records regulations: The Federal rules restrict any use of the information to criminally investigate or prosecute any alcohol or drug abuse patient.[facility] HospitalIn the event this information is protected by the Federal Confidentiality of Alcohol and Drug Abuse Patient Records regulations: The Federal rules restrict any use of the information to criminally investigate or prosecute any alcohol or drug abuse patient.[facility] HospitalIn the event this information is protected by the Federal Confidentiality of Alcohol and Drug Abuse Patient Records regulations: The Federal rules restrict any use of the information to criminally investigate or prosecute any alcohol or drug abuse patient.[facility] Reason for Visit (unrecogniz ed section [...] c/o UNCONTROLLED leakage - STOP ICS X2 [id number] Reason Comments Radiology CT Specialty Diagnoses / Procedures Referred By Contac t Referred To Contact CT IMAGING Diagnoses Other hydronephrosis Procedures CT UROGRAM WO/W IVCON CT ABD & PELVIS W/WO CONTRST 1+ BODY REGTaurus Gutierrez MD [address] [place] [address] [facility] [place] [address] Referral ID Status Reason Start Date Expiration Date V isits Requested Visits Authorized [id number] Closed Auto-Generate d Referral 01/19/2024 02/10/2025 1 1 Reason Comments Consult Patient Care team informatio n (unrecognized section and content) Health Services Coordinator Relationship Specialty Start Date End Date Agusto Olmstead [address] [place] [address] PCP - General 05/17/23 Lisa Porras MD [address] [place] [address] Referring Urology 05/11/23 Health Services Coordinator Relationship Specialty Start Date End Date RicAgusto casillas [address] [place] [address] PCP - General 05/17/23 Lisa Porras MD [address] [place] [address] Referring Urology 05/11/23 Health Services Coordinator Relationship Specialty Start Date End Date RicapurvamundoAgusto [address] [place] [address] PCP - General 05/17/23 Lisa Porras MD [address] [place] [address] Referring Urology 05/11/23 Health Services Coordinator Relationship Specialty Start Date End Date RicapurvaAgusto casillas [address] [place] [address] PCP - General 05/17/23 Lisa Porras MD [address] [place] [address] Referring Urology 05/11/23 Health Services Coordinator Relationship Specialty Start Date End Date Agusto Olmstead, 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-STANDPIPE TENDER [address] [place] [address] PCP - General Nurse Practitioner 11/10/22 Health Services Coordinator Relationship Specialty Start Date End Date Agusto Olmstead [address] [place] [address] PCP - General 05/17/23 Lisa Porras MD [address] [place] [address] [address] [place] [address] Referring Urology 05/11/23 Health Services Coordinator Relationship Specialty Start Date End Date Agusto Olmstead [address] [place] [address] PCP - General 05/17/23 Lisa Porras MD [address] [place] [address] Referring Urology 05/11/23 Team Status: Active Member Role Status Dates Sumi Lentz APRN REHABILITATION SERVICES MANAGER-C Primary Care Provider Active Team Status: Inactive Member Role Status Dates Eli Sprague MD Attending Provider Active Star t: August 01, 2023 End: August 01, 2023 Health Services Coordinator Relationship Specialty Start Date End Date Agusto Olmstead APRN-STANDPIPE TENDER [address] [place] [id number] PCP - General Nurse Practitioner 11/10/22 Health Services Coordinator Relationship Specialty Start Date End Date Agusto Olmstead APRN-STANDPIPE TENDER [address] [place] [address] PCP - General Nurse Practitioner 11/10/22 Health Services Coordinator Relationship Specialty Start Date End Date Agusto Olmstead [address] [place] [address] PCP - General 05/17/23 Lisa Porras MD [address] [place] [address] Referring Urology 05/11/23 Agusto Olmstead [address] [place] [address] Referring 01/04/24 Health Services Coordinator Relationship Specialty Start Date End Date Agusto Olmstead [address] [place] [address] PCP - General 05/17/23 Lisa Porras MD [address] [place] [address] Referring Urology 05/11/23 Agusto Olmstead [address] [place] [address] Referring 01/04/24 Health Services Coordinator Relationship Specialty Start Date End Date Agusto Olmstead [address] [place] [address] PCP - General 05/17/23 Lisa Porras MD [address] [place] [address] Referring Urology 05/11/23 Agusto Olmstead [address] [place] [address] Referring 01/04/24 Health Services Coordinator Relationship Specialty Start Date End Date Agusto Olmstead [address] [place] [address] PCP - General 05/17/23 Lisa Porras MD [address] [place] [address] Referring Urology 05/11/23 Agusto Olmstead [address] [place] [address] Referring 01/04/24 Health Services Coordinator Relationship Specialty Start Date End Date Agusto Olmstead [address] [place] [address] PCP - General 05/17/23 Lisa Porras MD [address] [place] [address] Referring Urology 05/11/23 Agusto Olmstead [address] [place] [address] Referring 01/04/24 Health Services Coordinator Relationship Specialty Start Date End Date Agusto Olmstead [address] [place] [address] PCP - General 05/17/23 Lisa Porras MD [address] [place] [address] Referring Urology 05/11/23 Agusto Olmstead [address] [place] [address] Referring 01/04/24 Health Services Coordinator Relationship Specialty Start Date End Date Agusto Olmstead [address] [place] [address] PCP - General 05/17/23 Lisa Porras MD [address] [place] [address] Referring Urology 05/11/23 Agusto Olmstead [address] [place] [address] Referring 01/04/24 Health Services Coordinator Relationship Specialty Start Date End Date Agusto Olmstead [address] [place] [address] PCP - General 05/17/23 Lisa Porras MD [address] [place] [address] Referring Urology 05/11/23 Agusto Olmstead [address] [place] [address] Referring 01/04/24 Health Services Coordinator Relationship Specialty Start Date End Date Agusto Olmstead [address] [place] [address] PCP - General 05/17/23 Lisa Porras MD [address] [place] [address] Referring Urology 05/11/23 Agusto Olmstead [address] [place] [address] Referring 01/04/24 Health Services Coordinator Relationship Specialty Start Date End Date Agusto Olmstead [address] [place] [address] PCP - General 05/17/23 Lisa Porras MD [address] [place] [address] Referring Urology 05/11/23 Agusto Olmstead [address] [place] [address] Referring 01/04/24 Goals (unrecognized section and content) [...] BE BASED ON THE PRIMARY CLINICAL RECORDS. [facility]. provides no warranty or guarantee of the accuracy or completeness of information in this document.
--- NOTE | 2024-05-08 17:00 | XR_ITS ---
The [address] [address] Patient Name: AISLINN CARNES MRN: [id number] date: 1960 Sex: F Assigned Patient Location: ER Current Patient Location: ER Accession/Order Number: [id number] Exam Date: 05/08/2024 17:29 Report Date: 05/08/2024 17:53 At the request of: IRVIN REYNOLDS Procedure: XR chest 2V EXAM: XR chest 2V HISTORY: cough COMPARISON: 04/17/2024 TECHNIQUE: Upright PA and lateral chest x-ray FINDINGS: The heart is not enlarged and the vasculature is not distended. No acute infiltrate, effusion or pneumothorax is identified. The osseous structures are grossly intact. Surgical clips are seen in the upper abdomen. XR/XR chest 2V IMPRESSION: No acute infiltrate or evidence of cardiac decompensation. The overall appearance of the chest is essentially unchanged. Electronically authenticated by: RAMON STEEL Date: 05/08/2024 17:53
[2024-05-08 17:31] LABS: Influenza Virus A Antigen Negative; Influenza Virus B Antigen Negative; Internal Control Within Normal Limits
[2024-05-08 17:32] LABS: SARS-CoV-2 Ag POSITIVE (NEGATIVE)
[2024-05-08 17:35] VITALS: O2SAT 98
--- NOTE | 2024-05-08 18:14 | ED.GENADUL1 ---
HPI HPI - General Adult General Chief complaint: Upper Respiratory Infection Stated complaint: Tested +COVID Time Seen by Provider: 05/08/24 17:27 Source: patient Mode of arrival: walk-in Limitations: no limitations History of Present Illness HPI narrative: Patient presents to ED complaining of not feeling well. She reports nausea vomiting all night. She tested positive for COVID. She has had a little cough as well. She reports some fevers and chills. She said she feels very worn out. No respiratory distress oxygen saturation 98% she does have a slight fever here at 100.1. Patient states she was throwing up last night, she did not take any Tylenol or Motrin today. She said she was recently in the hospital for pneumonia but states that was feeling better but now is COVID-positive with a cough. No chest pain. Related Data Home Medications ?Medication ?Instructions ?Recorded ?Confirmed insulin lispro 100 unit/mL 1 sliding scale dose subcut QID 05/12/23 04/26/24 subcutaneous pen pregabalin 150 mg capsule 150 mg PO Q8H 05/12/23 04/26/24 hydrocodone 7.5 mg-acetaminophen 1 tab PO Q8H PRN pain 07/07/23 04/26/24 325 mg tablet ferrous sulfate 325 mg (65 mg 325 mg PO DAILY 01/10/24 04/26/24 iron) tablet (FeroSul) amlodipine 5 mg tablet 5 mg PO QD 01/18/24 04/26/24 B-complex with vitamin C 1 cap PO DAILY 04/26/24 04/26/24 (Support-500 capsule) cetirizine 10 mg tablet (24Hour 10 mg PO DAILY 04/26/24 04/26/24 Allergy) fluticasone propionate 50 1 spray intranasal DAILY PRN 04/26/24 04/26/24 mcg/actuation nasal allergies spray,suspension (24 Hour Allergy Relief) metoprolol succinate 50 mg 50 mg PO .qd 04/26/24 04/26/24 tablet,extended release 24 hr Previous Rx's ?Medication ?Instructions ?Recorded insulin glargine 100 unit/mL (3 28 unit (0.28 mL) subcut QPM #0 mL 01/11/24 mL) subcutaneous pen (Lantus Solostar U-100 Insulin) cefuroxime axetil 250 mg tablet 250 mg PO BID 7 days #14 tabs 04/27/24 Allergies Allergy/AdvReac Type Severity Reaction Status Date / Time latex Allergy Unknown Verified 01/04/24 08:42 Opioid HPI Opioid Management Most Recent Opioid Data: Last Pain Scale 7 05/08/24 18:33 Last MAR Pain Assessment 05/08/24 18:33 Last ORT Total Score 0 04/26/24 03:34 Last ORT Risk Category Low Risk 04/26/24 03:34 Review of Systems ROS Status of ROS 10 or more systems reviewed and unremarkable except as noted in history and below [facility] Medical History (Updated 05/08/24 @ 18:54 by Suha Vanegas DO) Pneumonia ?J18.9 - Pneumonia, unspecified organism (ICD-10) Acute UTI (urinary tract infection) ?N39.0 - Urinary tract infection, site not specified (ICD-10) Bilateral hydronephrosis ?N13.30 - Unspecified hydronephrosis (ICD-10) Amputation of left great toe ?S98.112A - Complete traumatic amputation of left great toe, initial encounter (ICD-10) 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 ?N18.9 - Chronic kidney disease, unspecified (ICD-10) ?Z85.528 - Personal history of other malignant neoplasm of kidney (ICD-10) Neuropathy ?G62.9 - Polyneuropathy, unspecified (ICD-10) DM2 (diabetes mellitus, type 2) ?E11.9 - Type 2 diabetes mellitus without complications (ICD-10) Chronic renal insufficiency ?N18.9 - Chronic kidney disease, unspecified (ICD-10) Hyperglycemia due to diabetes mellitus ?E11.65 - Type 2 diabetes mellitus with hyperglycemia (ICD-10) Urinary tract infection ?N39.0 - Urinary tract infection, site not specified (ICD-10) HTN (hypertension) ?I10 - Essential (primary) hypertension (ICD-10) Stroke ?I63.9 - Cerebral infarction, unspecified (ICD-10) Lupus ?M32.9 - Systemic lupus erythematosus, unspecified (ICD-10) Arthritis ?M19.90 - Unspecified osteoarthritis, unspecified site (ICD-10) Fibromyalgia ?M79.7 - Fibromyalgia (ICD-10) Diabetes ?E11.9 - Type 2 diabetes mellitus without complications (ICD-10) Chronic kidney disease (CKD) ?N18.9 - Chronic kidney disease, unspecified (ICD-10) Neoplasm of kidney ?D49.519 - Neoplasm of unspecified behavior of unspecified kidney (ICD-10) Surgical History (Updated 01/10/24 @ 15:56 by Ashley Sanchez) Hx of neck surgery ?Z98.890 - Other specified postprocedural states (ICD-10) History of shoulder surgery ?Z98.890 - Other specified postprocedural states (ICD-10) History of hysterectomy ?Z90.710 - Acquired absence of both cervix and uterus (ICD-10) Family History (Updated 01/10/24 @ 15:58 by Ashley Sanchez) Brother Family history of CHF (congestive heart failure) Family history of myocardial infarction Father Family history of CHF (congestive heart failure) Family history of COPD (chronic obstructive pulmonary disease) Family history of myocardial infarction Sister Family history of cancer Grandmother Family history of cancer Family history of diabetes mellitus Social History (Updated 04/26/24 @ 04:43 by Vonnie Tijerina) Within the past year, how often did you have a drink containing alcohol: never Within the past year, how often did you have six or more drinks on one occasion: never Score interpretation: A score less than 3 is consistent with normal alcohol consumption. Smoking status: Never smoker Non-prescribed substance use: denies use Known occupational exposures/hazards: No Highest level of school completed/degree received: GED or equivalent Do you want help with school or training: No Are you now , , , , never or living with a partner: In a typical week, how many times do you talk on the telephone with family, friends, or neighbors: 3 or more times per week How often do you get together with friends or relatives: 3 or more times per week How often do you attend sabianism or latter day services: never Do you belong to any clubs or organizations such as sabianism groups unions, fraternal or athletic groups, or school groups: no Total score: 1 Score interpretation: A score of less than or equal to 1 indicates the most socially isolated. Little interest or pleasure in doing things: not at all Feeling down, depressed, or hopeless: not at all Feel stressed/tense/nervous/anxious/difficulty sleeping: to some extent Life stressors: other Life stressor details: Personal health Gender Identity: female Exam Narrative Exam Narrative: General: alert, no acute distress Cardiovascular: regular rate and rhythm, normal peripheral perfusion. Respiratory: Lungs CTA, respirations non labored. Extremities: no deformity, no trauma. Neurological: oriented x 4, LOC appropriate for age. Constitutional Vital Signs, click to edit/add: Last Vital Signs Temp 100.1 F 05/08/24 16:47 Pulse 84 05/08/24 16:55 Resp 12 05/08/24 16:55 BP 156/99 H 05/08/24 16:48 Pulse Ox 95 05/08/24 18:36 O2 Del Method Room Air 05/08/24 17:35 Course Vital Signs Vital signs: Vital Signs Temperature 100.1 F 05/08/24 16:47 Pulse Rate 88 05/08/24 16:47 Respiratory Rate 17 05/08/24 16:47 Blood Pressure 156/99 H 05/08/24 16:47 Pulse Oximetry 98 05/08/24 16:47 Oxygen Delivery Method Room Air 05/08/24 16:47 Temperature 100.1 F 05/08/24 16:47 Pulse Rate 84 05/08/24 16:55 Respiratory Rate 12 05/08/24 16:55 Blood Pressure 156/99 H 05/08/24 16:48 Pulse Oximetry 95 05/08/24 18:36 Oxygen Delivery Method Room Air 05/08/24 17:35 Medical Decision Making MDM Narrative Medical decision making narrative: Due to the nausea vomiting last night, patient is feeling dry. Will order 1 L normal saline as well as Toradol for the fever and bodyaches and Zofran for the nausea vomiting. Chest x-ray does not show any acute pneumonia. Patient was feeling better after fluids and Toradol. She is comfortable with care plan for home. Tylenol Motrin for pain and fevers and stay hydrated at home. Return to ED if any shortness of breath or worsening respiratory issues or any further concerns Differential Diagnosis Differential Diagnosis: COVID, flu, viral syndrome Lab Data Lab results reviewed: Yes I reviewed the patient's lab results Labs: Lab Results 05/08/24 05/08/24 Range/Units 17:01 18:25 WBC 9.8 (4.0-11.0) 10^3/uL RBC 4.62 (4.20-5.40) 10^6/uL Hgb 12.3 (12.0-16.0) g/dL Hct 37.4 (36.0-48.0) % MCV 81.0 (81.0-99.0) fL MCH 26.6 L (26.7-34.0) pg MCHC 32.9 (29.9-35.2) g/dL RDW 14.3 (11.0-15.0) % Plt Count 214 (150-450) 10^3/uL MPV 11.0 (9.5-13.5) fL Neut % (Auto) 73.7 (43.0-75.0) % Lymph % (Auto) 16.4 L (20.5-60.0) % [place] % (Auto) 9.1 (1.7-12.0) % Eos % (Auto) 0.0 L (0.9-7.0) % Baso % (Auto) 0.4 (0.2-2.0) % Neut # (Auto) 7.3 H (1.4-6.5) 10^3/uL Lymph # (Auto) 1.6 (1.2-3.8) 10^3/uL [place] # (Auto) 0.9 H (0.3-0.8) 10^3/uL Eos # (Auto) 0.0 (0.0-0.7) 10^3/uL Baso # (Auto) 0.0 (0.0-0.1) 10^3/uL Abs Immat Gran (auto) 0.04 H (0.00-0.03) 10^3/uL Imm/Tot Granulo (auto) 0.4 (0.0-0.5) % Sodium 139 (136-145) mmol/L Potassium 4.6 (3.5-5.1) mmol/L Chloride 104 (98-107) mmol/L Carbon Dioxide 25.4 (21.0-32.0) mmol/L Anion Gap 14.2 BUN 33.0 H (7.0-18.0) mg/dL Creatinine 2.05 H (0.55-1.02) mg/dL Est GFR ( Amer) 29 L (>=60) Est GFR (Non-Af Amer) 24 L (>=60) BUN/Creatinine Ratio 16.1 Glucose 160 H (74-106) mg/dL Calcium 9.0 (8.5-10.1) mg/dL Total Bilirubin 0.4 (0.2-1.0) mg/dL AST 20 (15-37) U/L ALT 30 (14-59) U/L Alkaline Phosphatase 93 (46-116) U/L Total Protein 8.7 H (6.4-8.2) g/dL Albumin 3.3 L (3.4-5.0) g/dL Globulin 5.4 g/dL Albumin/Globulin Ratio 0.6 Influenza Type A Ag Negative Influenza Type B Ag Negative SARS-CoV-2 Ag (CV2AG) Positive A (NEGATIVE) Imaging Data Chest x-ray: Radiologist's impression: ITS Impressions Chest X-Ray 05/08/24 17:00 IMPRESSION: No acute infiltrate or evidence of cardiac decompensation. The overall appearance of the chest is essentially unchanged. Electronically authenticated by: RAMON STEEL Date: 05/08/2024 17:53 Discharge Plan Discharge Chief Complaint: Upper Respiratory Infection Clinical Impression: COVID-19 Patient Disposition: Home, Self-Care Time of Disposition Decision: 18:53 Condition: Good Mode of Transportation: Private Vehicle Prescriptions / Home Meds: No Action insulin lispro 100 unit/mL insulin pen 1 sliding scale dose SUBCUT QID pregabalin 150 mg capsule 150 mg PO Q8H ferrous sulfate [FeroSul] 325 mg (65 mg iron) tablet 325 mg PO DAILY insulin glargine [Lantus Solostar U-100 Insulin] 100 unit/mL (3 mL) insulin pen 28 unit subcut QPM Qty: 0 0RF hydrocodone-acetaminophen 7.5-325 mg tablet 1 tab PO Q8H PRN (Reason: pain) amlodipine 5 mg Tablet 5 mg PO QD B-complex with vitamin C [Support-500] Capsule 1 cap PO DAILY cetirizine [24Hour Allergy] 10 mg tablet 10 mg PO DAILY fluticasone propionate [24 Hour Allergy Relief] 50 mcg/actuation spray,suspension 1 spray intranasal DAILY PRN (Reason: allergies) Rx Instructions: administer into each nostril metoprolol succinate 50 mg tablet extended release 24 hr 50 mg PO .qd cefuroxime axetil 250 mg tablet 250 mg PO BID 7 Days Qty: 14 0RF Print Language: Pashto Instructions: COVID-19 (Coronavirus Disease 2019) (ED) Referrals: Latosha Olmstead [employer] [Primary Care Provider] - 1 week Discharge Date/Time: 05/08/24 19:22
[2024-05-08 18:33] LABS: Basophils Percent Auto 0.4 % (0.2-2.0); Hematocrit 37.4 % (36.0-48.0); Hemoglobin 12.3 g/dL (12.0-16.0); Immature Granulocytes Abs Auto 0.04 10^3/uL (0.00-0.03); Immature Granulocytes Pct Auto 0.4 % (0.0-0.5); Lymphocytes Absolute Auto 1.6 10^3/uL (1.2-3.8); Lymphocytes Percent Auto 16.4 % (20.5-60.0); Mean Corpuscular HGB Conc 32.9 g/dL (29.9-35.2); Mean Corpuscular Hemoglobin 26.6 pg (26.7-34.0); Monocytes Absolute Auto 0.9 10^3/uL (0.3-0.8); Monocytes Percent Auto 9.1 % (1.7-12.0); Neutrophils Absolute Auto 7.3 10^3/uL (1.4-6.5); Neutrophils Percent Auto 73.7 % (43.0-75.0); Platelet Count 214 10^3/uL (150-450); Red Blood Count 4.62 10^6/uL (4.20-5.40); Red Cell Distribution Width 14.3 % (11.0-15.0); White Blood Count 9.8 10^3/uL (4.0-11.0)
[2024-05-08] MEDS: KETOROLAC TROMETHAMINE 30 MG/ML VIAL 15 MG IVP (18:33)
[2024-05-08] MEDS: ONDANSETRON PF 4 MG/2 ML VIAL IV (18:33)
[2024-05-08] MEDS: 0.9 % SODIUM CHLORIDE 1,000 ML 1000 ML IV (18:34)
[2024-05-08 18:36] VITALS: O2SAT 95
[2024-05-08 18:47] LABS: Alanine Aminotransferase 30 U/L (14-59); Albumin Globulin Ratio 0.6; Albumin Level 3.3 g/dL (3.4-5.0); Alkaline Phosphatase 93 U/L (46-116); Anion Gap 14.2; Aspartate Amino Transferase 20 U/L (15-37); BUN Creatinine Ratio 16.1; Bilirubin Total 0.4 mg/dL (0.2-1.0); Carbon Dioxide 25.4 mmol/L (21.0-32.0); Chloride 104 mmol/L (98-107); Estimated GFR (African America 29 (>=60); Estimated GFR (Non-African Ame 24 (>=60); Globulin 5.4 g/dL; Glucose 160 mg/dL (74-106); Potassium 4.6 mmol/L (3.5-5.1); Sodium 139 mmol/L (136-145); Total Protein 8.7 g/dL (6.4-8.2)
== END 2024-05-08 19:22 | disposition home or self-care (01) ==
PROVIDERS: Emergency Provider Emergency Medicine; PCP Nurse Practitioner
DX: U07.1 COVID-19 (principal)
CPT/HCPCS: 36415; 71046; 80053; 85025; 87804; 87811; 93005; 96361; 96374; 96375; 99285; J1885; J2405

== ENCOUNTER 2024-08-08 11:52 | Outpatient (OUT) | payer MEDICARE, SELFPAY ==
--- OUTSIDE RECORDS SUMMARY | 2024-08-08 12:10 | XMS_ITS | CCD ---
Author Organization [facility] Care Team Providers Care Clean Room Assembler Name Role Phone Pcp, No Primary Care Provider Unavailabl e AGUSTO OLMSTEAD Primary Care Physician ZaRonan russoyanet Unavailable AICHMUNDO, PRODUCT MANAGENT INTERN AGUSTO Attending Unavailable AICHHOLZ, PRODUCT MANAGENT INTERN AGUSTO Consulting Unavailable AICHHOLZ, PRODUCT MANAGENT INTERN AGUSTO Admitting Unavailable AICHHOLZ, PRODUCT MANAGENT INTERN AGUSTO Primary Care Unavailable RAMON HUNTLEY Attending Unavailable RAMON HUNTLEY Admitting Unavailable REQUEST, DR DANNIE LISTED Primary Care Unavaila georgi DELVALLE, DR THANH García Consulting Unavailable RAMON HUNTLEY Consulting Unavailable AICHHOLZ, PRODUCT MANAGENT INTERN AGUSTO Primary Care Unavailable RAMON HUNTLEY Admitting Unavailable RAMON HUNTLEY Attending Unavailable AICHHOLZ, PRODUCT MANAGENT INTERN AGUSTO Primary Care Unavailable SHAIKH Christiano SANFORD Consulting Unavailable RENATA SANFORDIKChristiano Alvarado Admitting Unavailable LUKASWSHAIKH Christiano HINKLE Attending Unavailable AICHHOLZ, PRODUCT MANAGENT INTERN AGUSTO Consulting Unavailable AICHHOLZ, PRODUCT MANAGENT INTERN AGUSTO Admitting Unavailable AICHHOLZ, PRODUCT MANAGENT INTERN AGUSTO Attending Unavailable AICHHOLZ, PRODUCT MANAGENT INTERN AGUSTO Primary Care Unavailable RAMON HUNTLEY Attending Unavailable AICHHOLZ, PRODUCT MANAGENT INTERN AGUSTO Primary Care Unavailable RAMON HUNTLEY Admitting Unavailable WEST, DR NUBIA Carlos Consulting Unavailable RAMON HUNTLEY Consulting Unavailable AICHHOLZ, PRODUCT MANAGENT INTERN AGUSTO Primary Care Unavailable WEST, DR NUBIA Carlos Consulting Unavailable CAMMIE SEGURA Admitting Unavailable CAMMIE SEGURA Attending Unavailable CAMMIE SEGURA Consulting Unavailable AICHHOLZ, PRODUCT MANAGENT INTERN AGUSTO Primary Care Unavailable AICHHOLZ, PRODUCT MANAGENT INTERN AGUSTO Attending Unavailable AICHHOLZ, PRODUCT MANAGENT INTERN AGUSTO Admitting Unavailable BHARAT, DR NUBIA Carlos Consulting Unavailable AICHHOLZ, PRODUCT MANAGENT INTERN AGUSTO Consulting Unavailable AICHHOLZ, PRODUCT MANAGENT INTERN AGUSTO Primary Care Unavailable CAMMIE SEGURA Admitting Unavailable CAMMIE SEGURA Attending Unavailable COLTONCAMMIE Consulting Unavailable AICHHOLZ, PRODUCT MANAGENT INTERN AGUSTO Primary Care Unavailable AICHHOLZ, PRODUCT MANAGENT INTERN AGUSTO Attending Unavailable AICHHOLZ, PRODUCT MANAGENT INTERN AGUSTO Consulting Unavailable AICHHOLZ, PRODUCT MANAGENT INTERN AGUSTO Admitting Unavailable AICHHOLZ, PRODUCT MANAGENT INTERN AGUSTO Primary Care Unavailable BHARAT, DR NUBIA Carlos Consulting Unavailable COLTON, CAMMIE Admitting Unavailable COLTON, CAMMIE Attending Unavailable COLTON, CAMMIE Consulting Unavailable AICHHOLZ, PRODUCT MANAGENT INTERN AGUSTO Primary Care Unavailable ZIEBER, DR THANH García Consulting Unavailable HIGHLANDER, PETER D Attending Unavailable HIGHLANDER, PETER D Admitting Unavailable HIGHLANDER, PETER D Consulting Unavailable AICHHOLZ, PRODUCT MANAGENT INTERN AGUSTO Primary Care Unavailable FOSTER ., DR PAGE Admitting Unavailable FOSTER ., DR PAGE Attending Unavailable FOSTER ., DR PAGE Consulting Unavailable ZIEBER, DR THANH García Consulting Unavailable HIGHLANDER, PETER D Admitting Unavailable AICHHOLZ, PRODUCT MANAGENT INTERN AGUSTO Primary Care Unavailable ZIKRYSTENER, DR THANH García Consulting Unavailable HIGHLANDER, PETER D Attending Unavailable HIGHLANDER, PETER D Consulting Unavailable AICHHOLZ, PRODUCT MANAGENT INTERN AGUSTO Primary Care Unavailable AICHHOLZ, PRODUCT MANAGENT INTERN AGUSTO Attending Unavailable AICHHOLZ, PRODUCT MANAGENT INTERN AGUSTO Consulting Unavailable AICHHOLZ, PRODUCT MANAGENT INTERN AGUSTO Admitting Unavailable ZIEBER, DR THANH García Consulting Unavailable AICHHOLZ, PRODUCT MANAGENT INTERN AGUSTO Primary Care Unavailable ZIEBER, DR THANH García Consulting Unavailable HIGHLANDER, PETER D Attending Unavailable HIGHLANDER, PETER D Admitting Unavailable HIGHLANDER, PETER D Consulting Unavailable AICHHOLZ, PRODUCT MANAGENT INTERN AGUSTO Primary Care Unavailable ADELIA, DR THANH García Consulting Unavailable CAMMIE SEGURA Admitting Unavailable CAMMIE SEGURA Attending Unavailable COLTON, CAMMIE Consulting Unavailable WANDY .RAQUEL Admitting Unavailable WANDY .RAQUEL Attending Unavailable KASIE CANDELARIO Consulting Unavailable GIDEON, DR PANDEY LISTED Primary Care Unavaila georgi SABA .RAQUEL Consulting Unavailable LYLE MATIAS Consulting Unavailable AICHHOLZ, PRODUCT MANAGENT INTERN AGUSTO Primary Care Unavailable EARL ., DR CARMONA Admitting Unavailable HAY ., DR CARMONA Attending Unavailable HAY ., DR CARMONA Consulting Unavailable TONY LUO Consulting Unavailable NUBIA BATEMAN Consulting Unavailable AICHHOLZ, PRODUCT MANAGENT INTERN AGUSTO Primary Care Unavailable HIGHLANDER, PETER D Admitting Unavailable HIGHLANDER, PETER D Attending Unavailable HIGHLANDER, PETER D Admitting Unavailable AICHHOLZ, PRODUCT MANAGENT INTERN AGUSTO Primary Care Unavailable YUKO, RAMON Tillman Attending Unavailable HIGHLBOBBY, RAMON Tillman Admitting Unavailable AICHHOLZ, PRODUCT MANAGENT INTERN AGUSTO Primary Care Unavailable ADELIA, DR THANH García Consulting Unavailable YUKO, RAMON Tillman Attending Unavailable HIGHLRAMON ROSALES Consulting Unavailable HIGHLANDER, RAMON Tillman Admitting Unavailable AICHHOLZ, PRODUCT MANAGENT INTERN AGUSTO Primary Care Unavailable YUKO, RAMON Tillman Attending Unavailable YUKO, RAMON Tillman Attending Unavailable YUKO, RAMON Tillman Admitting Unavailable REQUEST, NONE LISTED Primary Care Unavaila ble YUKO, RAMON Tillman Admitting Unavailable AICHHOLZ, PRODUCT MANAGENT INTERN AGUSTO Primary Care Unavailable HIGHLBOBBY, RAMON Tillman Attending Unavailable HIGHLBOBBY, RAMON Tillman Admitting Unavailable AICHHOLZ, PRODUCT MANAGENT INTERN AGUSTO Primary Care Unavailable HIGHLANDER, RAMON Tillman Attending Unavailable HIGHLANDER, RAMON Tillman Attending Unavailable HIGHLANDER, RAMON Tillman Admitting Unavailable REQUEST, DR NONE LISTED Primary Care Unavaila ble LOUIE, [...] GRECHNY ., GIANNI PETIT Consulting Unavailabl e YUKO, RAMON Tillman Procedure Practitioner Unava TONY Cartagen[place] Consulting Unavailable RAMON HUNTLEY Consulting Unavailable BRANDO, KWADWO Consulting Unavailable NUBIA BATEMAN Unavailable GURU DAVISON Consulting Unavailable FRED, LANDON Consulting Unavailable ROSELIA ., LISA JIMENEZ Consulting Unavailable GEMBUSCAMDEN Consulting Unavailable REJI SMALLWOOD Consulting Unavailable AICHHOLZ, PRODUCT MANAGENT INTERN AGUSTO Primary Care Unavailable VOLCANO, DR NUBIA Carlos Consulting Unavailable CAMMIE SEGURA Admitting Unavailable CAMMIE SEGURA Attending Unavailable CAMMIE SEGURA Consulting Unavailable RAMON HUNTLEY Admitting Unavailable AICHHOLZ, PRODUCT MANAGENT INTERN AGUSTO Primary Care Unavailable ADELIA, DR THANH García Consulting Unavailable RAMON HUNTLEY Attending Unavailable RAMON HUNTLEY Consulting Unavailable Fitayden, Brigette Unavailable MapusSohaildra Unavailable Lisa Porras MD Unavailable Aysha Agusto Primary Care Provider [phone] Aysha LOCK-Agusto CRAIG Primary Care Provider Lisa Porras MD Unavailable Sumi Lentz Primary Care Unavailable Agusto Olmstead Attending Unavailable Agusto Olmstead Admitting Unavailable Lue, Lisa MIrina Referring Unavailable Lue, Lisa M. Admitting Unavailable Lue, Lisa MIrina Attending Unavailable PROMISE ARNOLD Attending Unavailab le CATALINA, PROMISE Rodriguez Admitting Unavailab le CATALINA, PROMISE Rodriguez Attending Unavailab le CATALINA, PROMISE Rodriguez Admitting Unavailab le CATALINA, PROMISE JOHNS E Attending Unavailab le CATALINA, PROMISE Rodriguez Admitting Unavailab le CATALINA, PROMISE Rodriguez Attending Unavailab brayden CATALINA, PROMISE Rodriguez Attending Unavailab Lisa Anders Attending Unavailable LuLisa rodriguez MIrina Attending Unavailable LuLisa rodriguez MIrina Attending Unavailable PROMISE ARNOLD Attending Unavailab le RICHAGUSTO CASILLAS Attending Unavailable PROMISE ARNOLD Attending Unavailab Lisa Anders Referring Unavailable LueLisa MIrina Attending Unavailable PROMISE ARNOLD Attending Unavailab brayden LARIOSHAGUSTO CASILLAS Attending Unavailable Abram Olmsteada Primary Care Provider Aysha Agusto Unavailable TAURUS BALLARD Attending Unavailable ABOUASSALY, TAURUS Attending Unavailable ARUNA, TAURUS Attending Unavailable ROBUAMOOSE TAURUS Admitting Unavailable Richholjosue, Agusto Primary Care Provider Unavailabl e Aysha Agusto Unavailable Unavailable SWETA LI Referring Unavailable AGUSTO OLMSTEAD Primary Care Unavailable Kofi Gotti MD Primary Care Provider ABRAM OLMSTEADA Attending Unavailable AICHHOLZ, AGUSTO Attending Unavailable RICHHOLJosue, AGUSTO Attending Unavailable RICHHOLZ, AGUSTO Attending Unavailable AICHHOLZ, AGUSTO Attending Unavailable AICHHOLZ, AGUSTO Attending Unavailable Aichholz ASHVIN-KIARA Agusto J Primary Care Provider TAURUS BALLARD Referring Unavailable JUANITO BARNARD Attending Unavailable SLOPNICK, CARMENZA Attending Unavailable SLOPNICK, CARMENZA Attending Unavailable VERHOSWETA DILL Attending Unavailable AICHHOLZ, AGUSTO J Referring Unavailable AICHHOLZ, AGUSTO J Primary Care Unavailable SWETA LI N Attending Unavailable AICHHOLZ, AGUSTO J Referring Unavailable AICHHOLZ, AGUSTO J Primary Care Unavailable PEDRO, ZACKERY E Admitting Unavailable PEDRO, ZACKERY E Attending Unavailable AICHHOLZ, AGUSTO J Referring Unavailable AICHHOLZ, AGUSTO J Primary Care Unavailable PEDRO, ZACKERY E Attending Unavailable PEDRO, ZACKERY E Referring Unavailable AICHHOLZ, AGUSTO J Primary Care Unavailable JYOTHI SHELTON Attending Unavailable AICHHOLZ, AGUSTO J Primary Care Unavailable SWETA LI N Attending Unavailable AICHHOLZ, AGUSTO J Referring Unavailable [...] Unavailable AICHHOLZ, AGUSTO J Primary Care Unavailable VERSWETA ENCINAS N Attending Unavailable AICHHOLZ, AGUSTO J Referring Unavailable AICHHOLZ, AGUSTO J Primary Care Unavailable SWETA LI Attending Unavailable AICHHOLZ, AGUSTO J Referring Unavailable AICHHOLZ, AGUSTO J Primary Care Unavailable KATEY DIAMOND Attending Unavailable AICHHOLZ, AGUSTO J Primary Care Unavailable Allergies Allergy Classification Reported Allergen(s) Allergy Type Date of Onset Reaction(s) Facility Latex (2 sources) Latex Substance Allergy 0 Rash [facility] (20 sources) Latex; Translations: [Latex] Allergy to substance 0 Eruption of skin (disorder), Rash [facility] Haroldo Medications Current Medications Medication Drug Class(es) Dates [...] oral tablet (20 sources) Opioid Agonist Start: 07-26-2024 take 1 tablet by mouth three times daily as needed for pain HYDROcodone-acetami nophen (NORCO) 7.5-325 mg per tablet Indications: Reflex sympathetic dystrophy of right upper extremity Take 1 tablet by mouth 3 (three) times a day as needed for pain. 90 tablet 07/26/2024 Active Start: 06-21-2024 End: 07-15-2024 take 1 tablet by mouth three times daily as needed for pain HYDROcodone-acetaminophen (NORCO) 7.5-32 5 mg per tablet Indications: Reflex sympathetic dystrophy of right upper extremity Take 1 tablet by mouth 3 (three) times a day as needed for pain. 90 tablet 06/21/2024 07/15/2024 Discontinued (Reorder) Start: 03-19-2024 End: 06-11-2024 take 1 tablet by mouth three times daily as needed for pain HYDROcodone-acetaminophen (NORCO) 7.5-32 5 mg per tablet Indications: Reflex sympathetic dystrophy of right upper extremity Take 1 tablet by mouth 3 (three) times a day as needed for pain. 90 tablet 06/21/2024 Active Start: 11-16-2023 take 1 tablet by rain three times [...] by mouth three times daily as needed HYDROcodone-acetaminophen ([place]) 7.5-32 5 MG tablet Take 1 tablet by mouth 3 (three) times a day as needed 08/11/2023 Active Start: 09-08-2022 take 1 tablet by rain [...] as needed. albuterol 0.83 mg/ml inhalation solution (20 sources) beta2-Adrenergic Agonist take 3 mL by inhalation in the morning as needed albuterol (PROVENTIL,VENTOLIN) 2.5 mg /3 mL (0.083 %) nebulizer solution Inhale 3 mL (2.5 mg total) by nebulization in the morning. And PRN. Active take 2 puff(s) by in halation every six hours as needed for wheezing albuterol HFA (PROVENTIL HFA, VENTOLIN H FA) 90 mcg/actuation inhaler Inhale 2 Puffs as instructed every 6 hours as needed for wheezing/shortness of breath. Active Comment on above: Inhale 2 Puffs as in structed every 6 hours as needed for wheezing/shortness of breath. AMBULATORY COMPOUNDED MEDICATION (6 sources) Start: 08-22-19 AMBULATORY COMPOUNDED MEDICATION Apply 120 g topically See Admin Instructions. Formula 8E Apply 1-2 grams topically to affected area three to four times daily 120 g 2 08/22/2018 Active amLODIPine 10 mg oral tablet (20 sources) Dihydropyridine Calcium Channel Rainer Start: 01-17-20 End: 07-11-20 24 take 1 tablet by mouth once daily amLODIPine (Norvasc) 10 MG tablet Indications: Primary hypertension (CMS/HCC) Take 1 tablet (10 mg) by mouth Daily 30 tablet 2 06/11/2024 07/11/2024 Active Start: 09-08-2022 take 1 tablet by rain th once daily amLODIPine (NORVASC) 5 mg tablet Take 5 mg by mouth once daily. 09/08/2022 Active Budesonide / formoterol (7 sources) Corticosteroid, beta2-Adrenergic Agonist take 2 puff(s) by inhalation three times daily as needed budesonide-formoteroL (SYMBICORT) 80-4.5 mcg/actuation inhaler Inhale 2 puffs into the lungs 3 times daily as needed. Active take 2 puff(s) by in halation three times daily as needed budesonide-formoteroL (SYMBICORT) 80-4.5 mcg/actuation inhaler Inhale 2 puffs into the lungs 3 times daily as needed. 0 Active take 2 puff(s) by in halation twice daily budesonide-formoterol (SYMBICORT) 80-4.5 mcg/actuation inhaler Inhale 2 Puffs as instructed twice daily. 0 Active Comment on above: Inhale 2 Puffs as in structed twice daily. calcitriol 0.26102 mg oral capsule (3 sources) Vitamin D3 Analog Start: take 1 capsule by mouth three times weekly calcitriol (Rocaltrol) 0.25 MCG capsule Take 0.25 mcg by mouth 3 (three) times a week 06/05/2024 Active cephalexin 500 mg oral capsule (7 sources) Cephalosporin Antibacterial Start: take 1 capsule by mouth every twelve hours cetirizine hydrochloride 10 mg oral tablet (4 sources) Histamine-1 Receptor Antagonist Start: take 1 tablet by mouth once daily cetirizine (ZyrTEC) 10 MG tablet Indications: Chronic cough Take 1 tablet (10 mg) by mouth Daily 30 tablet 2 04/18/2024 Active ciprofloxacin 250 mg oral tablet (1 source) Quinolone Antimicrobial Start: End: take 1 tablet by mouth once daily ciprofloxacin HCl (CIPRO) 250 mg tablet Take 1 tablet by mouth once daily for 3 days. 3 tablet 0 01/21/2021 01/27/2021 Active Comment on above: Take 1 tablet by rain th once daily for 3 days. 1 ml denosumab 60 mg/ml prefilled syringe (19 sources) RANK Ligand Inhibitor inject 1 mL by subcutaneous injection once denosumab (PROLIA) 60 mg/mL syringe injection Inject 1 mL (60 mg total) under the skin once. Active denosumab (PROLI A) 60 mg/mL Inject 60 mg subcutaneously once every 6 months. Active Dexcom G6 Sensor - (6 sources) Start: 06-08-2023 Dexcom G6 Sens or - as directed SQ change q 10 [...] by mo ut two times a day. DULoxetine 20 mg delayed release oral capsule (2 sources) Serotonin and Norepinephrine Reuptake Inhibitor Start: 06-11-2024 End: 07-11-2024 take 1 capsule by mouth once daily DULoxetine (Cymbalta) [address] capsule Indications: Type 2 diabetes mellitus with diabetic neuropathy, unspecified whether shelter insulin use (CMS/[facility]) Take 1 capsule (20 mg) by mouth Daily Do not crush or chew. 30 capsule 1 06/11/2024 07/11/2024 Active estradiol 0.1 mg/ml vaginal cream (7 sources) Estrogen Start: 05-03-2023 Estrace 0.1 mg/g Cream See Instructions, 42.5 gm, Refill(s) 3, apply pea size amount to urethra/inner vagina 3x/week x 1 month, then 2x/week for maintainence, [id number], 153, cm, 05/03/23 9:52:00 EDT, Height/Length Dosing, 59, kg, 05/03/23 9:52:00 EDT, Weight Dosing Start Date: 05/03/23 Status: Ordered ferrous sulfate 325 mg delayed release oral tablet (20 sources) Start: 06-05-2024 take 1 tablet by mouth at mealtime ferrous sulfate 325 (65 Fe) MG EC tablet Take 325 mg by mouth in the morning. Take with meals. 06/05/2024 Active Start: 04-16-2021 take 1 tablet by rain th in the morning ferrous sulfate 325 (65 FE) mg tablet Take 1 tablet (325 mg total) by mouth in the morning. 04/16/2021 Active Start: 04-16-2021 take 1 tablet by rain th three times daily at mealtime FEROSUL 325 mg (65 mg iron) tablet Take 1 tablet by mouth three times daily with meals. 04/16/2021 Active Comment on above: Take 1 tablet by rain th three times daily with meals. fluticasone propionate 0.05 mg/actuat metered dose nasal spray (4 sources) Corticosteroid Start: 4 take 2 spray(s) nasal route once daily fluticasone (Flonase) 50 MCG/ACT nasal spray Indications: Chronic cough Administer 2 sprays into each nostril Daily Shake gently. Before first use, prime pump. After use, clean tip and replace cap. 16 g 2 04/18/2024 Active folic acid 1 mg oral tablet (12 sources) Start: 3 folic acid 1 mg Tab Refills(s) 0 Start Date: 09/08/22 Status: Ordered Insulin Aspart FlexPen (11 sources) Start: 3 Insulin Aspart FlexPen SubCutaneous, TIDAC, Refills(s) 0 Start Date: 09/21/22 Status: Ordered insulin aspart, human 100 unt/ml injectable solution (20 sources) Insulin Analog Start: 7 insulin aspart (NovoLOG) 100 unit/mL injection Please [...] a day. 1 Box 12 08/14/2020 Active inject 30 [IU] by collins bcutaneous injection at bedtime insulin glargine (Lantus) 100 UNIT/ML injection Inject 30 Units under the skin at bedtime Active Lantus SoloStar 100 UNIT/ML 28 units [...] 01/13/2024 Active lisinopril 10 mg oral tablet (6 sources) Angiotensin Converting Enzyme Inhibitor take 1 tablet by mouth in the morning lisinopriL (PRINIVIL,ZESTRIL) 10 mg tablet Take 1 tablet (10 mg total) by mouth in the morning. Active metFORMIN hydrochloride 1000 mg oral tablet (6 sources) Biguanide take 1 tablet by mouth in the morning, then take 1 tablet by mouth at mealtime metFORMIN (GLUCOPHAGE) 1000 mg tablet Take 1 tablet (1,000 mg total) by mouth in the morning and 1 tablet (1,000 mg total) in the evening. Take with meals. Active 24 hr metoprolol succinate 50 mg extended release oral tablet (20 sources) beta-Adrenergic Rainer Start: 11-08-2023 End: 01-20-2024 take 1 tablet by mouth once daily metoprolol succinate ER (TOPROL XL) 50 mg 24 hr tablet Take 50 mg by mouth once daily. 11/08/2023 Active Start: 12-20-2022 take 1 tablet by rain th every twenty-four hours in the morning metoprolol succinate XL (TOPROL XL) 50 mg 24 hr tablet Take 1 tablet (50 mg total) by mouth in the morning. 12/20/2022 Active Start: 12-20-2022 take 1 tablet by [...] day(s), # 30 tab(s), Refills(s) 6, Pharmacy: [id number], 153, cm, 09/21/22 8:48:00 EST, Height/Length Dosing, 52.5, kg, 09/21/22 8:48:00 EST, Weight Dosing Start Date: 09/21/22 Stop Date: 04/19/23 Status: Ordered ondansetron 4 mg disintegrating oral tablet (3 sources) Serotonin-3 Receptor Antagonist Start: 06-05-2024 take 1 tablet by mouth every eight hours as needed for vomiting and nausea ondansetron ODT (Zofran-ODT) 4 MG disintegrating tablet Take 4 mg by mouth every 8 (eight) hours if needed for vomiting or nausea 06/05/2024 Active 24 hr oxybutynin chloride 5 mg extended release oral tablet (1 source) Cholinergic Muscarinic Antagonist Start: 09-13-2022 End: 04-11-2023 take 1 tablet by mouth once daily oxybutynin 5 mg ER Tab 5 mg = 1 tab(s), Oral, Daily, X 30 day(s), # 30 tab(s), Refills(s) 6, Pharmacy: [id number], 153, cm, 09/13/22 13:38:00 EST, Height/Length Dosing, 52.5, kg, 09/13/22 13:38:00 EST, Weight Dosing Start Date: 09/13/22 Stop Date: 04/11/23 Status: Ordered potassium chloride 10 meq extended release oral capsule (12 sources) Start: 09-08-2022 potassium chloride 10 mEq Cap-ER Refills(s) 0 Start Date: 09/08/22 Status: Ordered pregabalin 150 mg oral capsule (20 sources) Start: 07-26-2024 pregabalin (LYRICA) 150 mg capsule Indications: Complex regional pain syndrome type 1 of right upper extremity Take 1 capsule (150 mg total) by mouth in the morning and 1 capsule (150 mg total) at noon and 1 capsule (150 mg total) in the evening. 90 capsule 1 07/26/2024 Active Start: 06-21-2024 End: 07-15-2024 pregabalin (LYRICA) 150 mg c apsule Indications: Complex regional pain syndrome type 1 of right upper extremity Take 1 capsule (150 mg total) by mouth in the morning and 1 capsule (150 mg total) at noon and 1 capsule (150 mg total) in the evening. 90 capsule 1 06/21/2024 07/15/2024 Discontinued (Reorder) Start: 05-20-2024 End: 06-11-2024 take 150 mg by mouth three times daily Pregabalin Active 150 MG PO Three times daily June 05, 2024 12:00am Start: 11-10-2023 pregabalin (LY PRIYANK) 150 mg capsule Indications: [...] 30 days. 09/04/2023 Active Start: 01-01-2021 pregabalin (Ly priyank) 150 MG capsule Take 1 capsule by mouth in the morning and 1 capsule at noon and 1 capsule in the evening. 08/11/2023 Active Comment on above: Take 150 [...] Active trospium chloride 20 mg oral tablet (7 sources) Cholinergic Muscarinic Antagonist Start: 3 take 1 tablet by mouth in the morning trospium (Sanctura) 20 MG tablet Take 20 mg by mouth in the morning. 03/22/2023 Active vitamin b12 1 mg extended release oral tablet (20 sources) Vitamin B12 Start: 3 End: 4 take 1 tablet by mouth in the morning cyanocobalamin, vitamin B-12, (VITAMIN B-12) 1,000 mcg tablet extended release Take 1 tablet (1 mg total) by mouth in the morning. 06/14/2023 Active Start: 04-11-2023 take 1 tablet [...] Active Problems Problem Classification Problem Date Documented Date Episodic/Chronic Administrative/social admission (2 sources) Dietary counseling and surveillance Episodic Asthma (20 sources) Unspecified asthma, uncomplicated; Translations: [Mild intermittent asthma] Onset: 11-13-2008 06-06-2023 Chronic Blindness and vision defects (3 sources) Visual impairment; Translations: [Unspecified visual loss] Onset: 10-11-2023 10-11-2023 Chronic Cancer of cervix (5 sources) Malignant tumor of cervix; Translations: [Malignant neoplasm of cervix uteri, unspecified] Onset: 10-11-2023 04-16-2024 Chronic Cardiac dysrhythmias (3 sources) Supraventricular tachycardia; Translations: [Supraventricular tachycardia] Onset: 06-15-2022 10-11-2023 Chronic Chronic kidney disease (20 sources) Chronic kidney disease stage 3; Translations: [Chronic kidney disease, stage 3 unspecified] Onset: 11-15-2021 Resolved: 04-01-2024 09-08-2022 Chronic Chronic kidney disease (4 sources) [...] [Heart failure, unspecified] Onset: 08-09-2022 09-08-2022 Chronic Coronary atherosclerosis and other heart disease (3 sources) Old myocardial infarction; Translations: [Old myocardial infarction] Onset: 06-15-2022 10-11-2023 Chronic Deficiency and other anemia (1 source) Anemia, unspecified Episodic Diabetes mellitus with complications (20 sources) Disorder due to type 2 diabetes mellitus; Translations: [Type 2 diabetes mellitus with unspecified complications] Onset: 11-03-2021 Chronic Diabetes mellitus without complication (20 sources) Type 2 diabetes mellitus; Translations: [Type 2 diabetes mellitus without complications] Onset: 11-03-2021 09-08-2022 Chronic Diabetes mellitus without complication (1 source) Diabetes mellitus without complication; Translations: [Type 2 diabetes mellitus with diabetic chronic kidney disease] Onset: 06-08-2023 Disorders of lipid metabolism (20 sources) Hyperlipidemia; Translations: [Hyperlipidemia, unspecified] Onset: 11-12-2009 Chronic Essential hypertension (20 sources) Essential hypertension; Translations: [Essential (primary) hypertension] Onset: 06-15-2022 09-08-2022 Chronic Fracture of lower limb (11 sources) Fracture of unspecified metatarsal bone(s), left foot, subsequent encounter for fracture with malunion; Translations: [Displaced fracture of second metatarsal bone, left foot, subsequent encounter for fracture with routine healing] Onset: 08-05-2022 Episodic Genitourinary symptoms and ill-defined conditions (20 sources) Mixed incontinence; Translations: [Incontinence] Onset: 09-13-2022 Resolved: 12-21-2023 Chronic Genitourinary symptoms and ill-defined conditions (20 sources) Urinary tract obstruction; Translations: [Obstructive and reflux uropathy, unspecified] Onset: 01-17-2021 Resolved: 01-17-2024 01-21-2021 Episodic Headache; including migraine (3 sources) Migraine; Translations: [Migraine, unspecified, not intractable, without status migrainosus] Onset: 09-06-2011 10-11-2023 Chronic Heart valve disorders (20 sources) Rheumatic mitral valve disease, unspecified; Translations: [Nonrheumatic mitral (valve) prolapse] Onset: 03-20-2008 06-06-2023 Chronic Hypertension with complications and secondary hypertension (5 sources) Hypertensive heart disease with heart failure; Translations: [Hypertensive renal disease] Onset: 08-09-2022 06-03-2024 Chronic Infective arthritis and osteomyelitis (except that caused by tuberculosis or sexually transmitted disease) (4 sources) Other acute osteomyelitis, left ankle and foot; Translations: [Acute osteomyelitis of ankle and/or foot] Onset: 06-15-2022 10-11-2023 Chronic Nausea and vomiting (3 sources) Nausea and vomiting; Translations: [Nausea with vomiting, unspecified] Onset: 05-08-2024 05-08-2024 Episodic Nonspecific chest pain (4 sources) Chest pain, unspecified; Translations: [CHEST PAIN UNSPECIFIED] Onset: 12-15-2022 Episodic Nutritional deficiencies (20 sources) Deficiency of macronutrients; Translations: [Unspecified severe protein-calorie malnutrition] Onset: 11-12-2009 01-21-2021 Chronic Nutritional deficiencies (5 sources) Deficiency of other specified B group vitamins; Translations: [Cobalamin deficiency] Onset: 06-11-2024 Episodic Open wounds of extremities (8 sources) Complete traumatic amputation of left great toe, initial encounter; Translations: [Traumatic amputation of toe(s) (complete) (partial), without mention of complication] Onset: 06-15-2022 10-11-2023 Chronic Osteoporosis (4 sources) Age-related osteoporosis without current pathological fracture; Translations: [Osteoporosis] Onset: 12-31-2022 10-11-2023 Chronic Other aftercare (17 sources) Long-term current use of insulin; Translations: [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] Episodic Other bone disease and musculoskeletal deformities (2 sources) Amputee; Translations: [Acquired absence of limb, unspecified] Onset: 06-11-2024 06-11-2024 Chronic Other circulatory disease (1 source) Other disorders [...] Episodic Other diseases of kidney and ureters (7 sources) Cyst of kidney, acquired; Translations: [Cystic kidney disease, unspecified] Onset: 09-15-2022 Episodic Other diseases of kidney and ureters (1 source) Acquired renal cystic disease; Translations: [Cyst of kidney, acquired] 07-05-2023 Episodic Other diseases of kidney and ureters (3 sources) Hydronephrosis; Translations: [Other hydronephrosis] 01-12-2024 Episodic Other endocrine disorders (13 sources) Hyperparathyroidism; Translations: [Hyperparathyroidism, unspecified] Onset: 03-13-2024 06-03-2024 Chronic Other endocrine disorders (1 source) Hyperparathyroidism, unspecified; Translations: [Hyperparathyroidism, unspecified] 06-05-2024 Chronic Other liver diseases (3 sources) Steatosis of liver; Translations: [Fatty (change of) liver, not elsewhere classified] Onset: 10-11-2023 10-11-2023 Chronic Other lower respiratory disease (1 source) Nodule of lung; Translations: [Solitary pulmonary nodule] 03-27-2024 Episodic Other lower respiratory disease (3 sources) Chronic cough; Translations: [Chronic cough] Onset: 04-16-2024 04-16-2024 Episodic Other nervous system disorders (20 sources) Chronic pain due to injury; Translations: [Chronic pain due to trauma] Onset: 06-06-2023 06-06-2023 Chronic Other nervous system disorders (20 sources) Complex regional pain syndrome type I of right upper limb; Translations: [Complex regional pain syndrome I of right upper limb] Onset: 09-26-2017 09-07-2023 Chronic Other nervous system disorders (2 sources) Complex regional pain syndrome I of right upper limb; Translations: [Complex regional pain syndrome i of right upper limb] Onset: 03-15-2024 Chronic Other nervous system disorders (5 sources) Complex regional pain syndrome; Translations: [Complex regional pain syndrome I, unspecified] Onset: 10-11-2023 10-11-2023 Chronic Other non-traumatic joint disorders (3 sources) Charcot's joint of foot; Translations: [Charcot's joint, left ankle and foot] Onset: 10-11-2023 10-11-2023 Chronic Other nutritional; endocrine; and metabolic disorders (1 source) Body mass index (BMI) 25.0-25.9, adult Episodic Other skin disorders (6 sources) Lesion of skin of face; Translations: [Disorder of the skin and subcutaneous tissue, unspecified] Onset: 06-11-2024 06-11-2024 Episodic Other upper respiratory infections (3 sources) Chronic sinusitis; Translations: [Chronic sinusitis, unspecified] Onset: 11-30-2010 10-11-2023 Chronic Peripheral and visceral atherosclerosis (3 sources) Atherosclerosis of aorta; Translations: [Atherosclerosis of aorta] Onset: 03-13-2024 03-13-2024 Chronic Residual codes; unclassified (1 source) Asymptomatic menopausal [...] adult Episodic Rheumatoid arthritis and related disease (6 sources) Rheumatoid arthritis, unspecified; Translations: [Rheumatoid arthritis] Onset: 06-15-2022 03-13-2024 Chronic Unclassified (12 sources) Finding of sensation of bladder 09-13-2022 Unclassified (1 source) CHRN KIDNEY DISEASE STG 3 UNSP; Translations: [CHRN KIDNEY DISEASE STG 3 UNSP] Onset: 12-31-2022 Unclassified (1 source) CONTACT W/AND (SUSP) EXPOS COVID-19; Translations: [CONTACT W/AND (SUSP) EXPOS COVID-19] Onset: 07-25-2022 Unclassified (1 source) Arm Injury Onset: 07-03-2024 Unclassified (1 source) Complex regional pain syndrome type 1 of right upper extremity [G90.511] Onset: 03-15-2024 Unclassified (1 source) Extremity Pain Onset: 12-13-2023 Viral infection (3 sources) Herpetic vulvovaginitis; 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] Onset: 11-16-2023 11-16-2023 Chronic Past or Other Problems Problem Classification Problem Date Documented Da te Episodic/Chronic Acute and unspecified renal failure (20 sources) Acute injury of kidney; Translations: [Acute [...] Onset: 07-25-2022 Episodic Diabetes mellitus without complication (20 sources) Glycosuria; Translations: [Glycosuria] Onset: 08-13-2020 Episodic E Codes: Natural/environment (1 source) Exposure to other specified factors, initial encounter; Translations: [EXPOSURE OTHER SPEC FACTORS INITIAL] Onset: 06-15-2022 Episodic Fever of unknown origin (13 sources) Fever; Translations: [Fever, unspecified] Onset: 08-31-2023 [...] Asthenia; Translations: [Weakness] Onset: 01-17-2021 01-18-2021 Episodic Mood disorders (3 sources) Mood disorders Onset: 10-11-2023 10-11-2023 Neoplasms of unspecified nature or uncertain behavior (20 sources) Neoplasm of kidney; 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] Onset: 06-22-2023 06-22-2023 Episodic Open wounds of extremities (1 source) Unspecified open wound of right great toe without damage to nail, initial encounter; Translations: [UNS OP WND RT GRT TOE NO DMG NL INT] Onset: 05-16-2022 Episodic Other aftercare (4 sources) [facility] (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; Translations: [[facility] CURRENT USE OF INSULIN] Onset: 08-09-2022 Episodic Other aftercare (1 source) 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 (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; Translations: [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] Onset: 08-09-2022 Episodic Other aftercare (3 sources) Admission statuses; Translations: [[facility] (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 of opiate analgesic] Onset: 03-15-2022 03-15-2022 Episodic Other aftercare (2 sources) [facility] (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 of opiate analgesic; Translations: [[facility] (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 of opiate analgesic] Onset: 03-15-2022 Episodic Other aftercare (4 sources) Patient encounter status; Translations: [[facility] (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 of opiate analgesic] Onset: 03-15-2022 03-15-2022 Episodic Other circulatory disease (20 sources) [...] Episodic Other diseases of kidney and ureters (20 sources) Cyst of kidney; Translations: [Cyst of kidney, acquired] Onset: 01-10-2017 09-13-2022 Episodic Other diseases of kidney and ureters (13 sources) Hydronephrosis with ureteral stricture, not elsewhere classified; Translations: [Hydronephrosis] Onset: 01-17-2021 Resolved: 01-21-2021 01-21-2021 Episodic Other diseases of kidney and ureters (2 sources) Other hydronephrosis; Translations: [Other hydronephrosis] Onset: 01-12-2024 Episodic Other gastrointestinal disorders (1 source) Diarrhea, unspecified; Translations: [DIARRHEA UNSPECIFIED] Onset: 07-25-2022 Episodic Other lower respiratory disease (1 source) Hypoxemia; Translations: [HYPOXEMIA] Onset: 07-25-2022 Episodic Other nervous system disorders (17 sources) Postoperative pain ; Translations: [Other acute postprocedural pain] Onset: 06-27-2023 06-27-2023 Episodic Other nervous system disorders (1 source) Other acute postprocedural pain; Translations: [Postoperative pain] Onset: 06-22-2023 Episodic Other nutritional; endocrine; and metabolic disorders (1 source) Body mass index (BMI) 19.9 or less, adult; Translations: [BODY MASS INDEX 19.9 OR LESS ADULT] Onset: 07-25-2022 Episodic Other screening for suspected conditions (not mental disorders or infectious disease) (12 sources) Encounter for screening mammogram for malignant neoplasm of breast; Translations: [Other specified abnormal findings of blood chemistry] Onset: 07-25-2022 Episodic Other upper respiratory disease (3 sources) Deviated nasal septum; Translations: [Deviated nasal septum] Onset: 11-30-2010 10-11-2023 Episodic Residual codes; unclassified (1 source) Acquired absence of both cervix and uterus; Translations: [ACQUIRED ABSENCE BOTH CERVIX AND UTERUS] Onset: 08-09-2022 Episodic Residual codes; unclassified (1 source) Acquired absence of other specified parts of digestive tract; Translations: [ACQ ABSENCE OTH PART DIGESTV TRACT] Onset: 07-25-2022 Episodic Residual codes; unclassified (3 sources) Postmenopausal state; Translations: [Asymptomatic menopausal state] Onset: 10-11-2023 10-11-2023 Episodic Septicemia (except in labor) (17 sources) Sepsis, unspecified organism; Translations: [Sepsis due [...] Test Name Value Interpretation Reference Range Facility [facility] 07-05-2024 36 Received C9 approval . Pt called and scheduled. Tzee notified. [facility] [place] 06-26-2024 CNPN Telephone (UROJUANIS) AISLINN WHEELER ([id number]) 1960 F Date Time Provider Department 06/26/24 ADAMA VELASCO During your visit today, we recorded the following information about you: Adama Velasco, RN 06/26/2024 9:57 AM Addendum Called and spoke to Aislinn Wheeler regarding her message. Asked her which surgery she was thinking of of the three options presented by Dr. Barnard. She mentioned the one where you make the bladder bigger. Reviewed the three options (Mitrofanoff, C/IC, and SPT with botox). She states she didn't want the bag. Discussed urostomy in general and offered to send her an information booklet about each procedure (Mitrofanoff and C/IC) for her review. Fed Ex today. Also asked her to get the labwork requested by Dr. Barnard locally Cystatin C and CMP sent to [facility] ( ; fx [phone]) and asked her to go to lab today or tomorrow. Once results come back, will set up a virtual visit to review options again and then put her on the schedule. Patient states understanding of instructions and plan. Adama Velasco RN ----- Message from Juanito Barnard MD sent at 06/20/2024 8:57 PM EDT ----- Regarding: RE: Surgery Did she say which surgery? We discussed a few options. She was supposed to get repeat blood work and do a VV with me - she didn't do the blood work and missed the virtual. Can you let her know to get blood work and schedule her for a VV? 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 Problem List As Of Date 06/26/2024 Noted Resolved Ureterolithiasis [N20.1] 01/17/2021 Acute bilateral [...] [Z86*06/06/2023 MVP (mitral valve prolapse) [I34.1] 06/06/2023 IESHA (iron deficiency anemia) [D50.9] 06/06/2023 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] 06/06/2023 Neurogenic bladder [N31.9] 06/06/2023 Stage 3a chronic kidney disease (HCC) [N18.31] 06/06/2023 Type 2 diabetes mellitus with hyperglycemia, wi*06/06/2023 Renal neoplasm [D49.519] 06/22/2023 Postoperative pain [G89.18] 06/27/2023 Diabetic ulcer of left midfoot associated with *08/31/2023 Fever [R50.9] 08/31/2023 09/04/2023 Urinary tract infection without hematuria [N39.*08/31/2023 09/04/2023 Encounter Status:Closed by ADAMA VELASCO on 06/26/24 Normal [facility] 36on 05-03-2024 36 Called to schedule p t with 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 LVM to call office back to schedule. Please advise pt to bring disc with imaging on it to her appt or advise scenario writer where imaging had been completed. Thank You Normal [facility] Telephoneon 05-03-2024 Telephone [id number] Fernando Wheeler 1960 F Date Provider Department Center 05/03/2024 808-[facility] SURG Second Fl No family history on file Normal [facility] CNOVon 05-01-2024 CNOV Office Visit (UROLMN ) AISLINN WHEELER ([id number]) 1960 F Date Time Provider Department 05/01/24 10:00 AM JUANITO BARNARD During your visit today, we recorded the following information about you: Pulse Blood pressure 74/minute 173/96 Juanito Barnard MD 05/01/2024 12:12 PM Signed [facility] UROLOGY NEW PATIENT [...] calculate BMI (more content not included)... Normal [facility] URINALYSIS, REFLEX MICROSCOP ICon 05-01-2024 Bilirubin Ql (U) Negative Negative [facility] Clarity (Unsp spec) Clear Clear [facility] Color (U) Yellow Yellow [facility] Glucose Test strip (U) [Mass/Vol] 1+ Abnormal Negative [facility] Hemoglobin Ql (U) Negative Negative [facility] Interpretation and review of laboratory results Abnormal [facility] Ketones Ql (U) Negative Negative [facility] Leukocyte esterase Test strip Ql (U) Trace Abnormal Negative [facility] Nitrite Ql (U) Negative Negative [facility] pH (U) 5.5 [pH] NINF - 8.5 [facility] Protein (U) [Mass/Vol] 2+ Abnormal Negative [facility] Specific gravity (U) [Rel density] 1.010 1.005 - 1.030 [facility] Urobilinogen Ql (U) 0.2 EU/dL 0.2-1.0 EU/dL [facility] This test was cecilia prasad and its performance characteristics determined by [facility]'s [facility] [place] ([facility]). It has not been cleared or approved by the FDA. [facility] is regulated under CLIA as qualified to perform high-complexity testing. This test is used for clinical purposes. It should not be regarded as investigational or for research. [facility] Bilirubin Ql (U) Negative Normal Negative [facility] Comment on above: Order Comment: Speci men Type: URINE SPECIMENOrdering Facility: [facility] Address: [address] [place] [address] Performed By: #### L [id number] ####[facility] LABIA [id number] [place] [address] [place] Clarity (Unsp spec) Clear Normal Clear [facility] Comment on above: Order Comment: Speci men Type: URINE SPECIMENOrdering Facility: [facility] Address: [address] [place] [address] Performed By: #### L [id number] ####[facility] LABIA [id number] [place] [address] [place] Color (U) Yellow Normal Yellow [facility] Comment on above: Order Comment: Speci men Type: URINE SPECIMENOrdering Facility: [facility] Address: [address] [place] [address] Performed By: #### L [id number] ####[facility] LABCLIA [id number] [place] [address] [place] Glucose Test strip (U) [Mass/Vol] 1+ Abnormal Negative [facility] Comment on above: Order Comment: Speci men Type: URINE SPECIMENOrdering Facility: [facility] Address: [address] [place] [address] Performed By: #### L [id number] ####[facility] LABCLIA [id number] [place] [address] [place] Hemoglobin Ql (U) Negative Normal Negative [facility] Comment on above: Order Comment: Speci men Type: URINE SPECIMENOrdering Facility: [facility] Address: [address] [place] [address] Performed By: #### L [id number] ####[facility] LABCLIA [id number] [place] [address] [place] Ketones Ql (U) Negative Normal Negative [facility] Comment on above: Order Comment: Speci men Type: URINE SPECIMENOrdering Facility: [facility] Address: [address] [place] [address] Performed By: #### L [id number] ####[facility] LABCLIA [id number] [place] [address] [place] Leukocyte esterase Test strip Ql (U) Trace Abnormal Negative [facility] Comment on above: Order Comment: Speci men Type: URINE SPECIMENOrdering Facility: [facility] Address: [address] [place] [address] Performed By: #### L [id number] ####[facility] LABCLIA [id number] [place] [address] [place] Nitrite Ql (U) Negative Normal Negative [facility] Comment on above: Order Comment: Speci men Type: URINE SPECIMENOrdering Facility: [facility] Address: [address] [place] [address] Performed By: #### L [id number] ####[facility] LABCLIA [id number] [place] [address] [place] pH (U) 5.5 [pH] Normal <8.5 [facility] Comment on above: Order Comment: Speci men Type: URINE SPECIMENOrdering Facility: [facility] Address: [address] [place] [address] Performed By: #### L [id number] ####[facility] LABCLIA [id number] [place] [address] [place] Protein (U) [Mass/Vol] 2+ Abnormal Negative [facility] Comment on above: Order Comment: Speci men Type: URINE SPECIMENOrdering Facility: [facility] Address: [address] [place] [address] Performed By: #### L [id number] ####[facility] LABCLIA [id number] [place] [address] [place] Specific gravity (U) [Rel density] 1.010 Normal 1.005-1.030 [facility] Comment on above: Order Comment: Speci men Type: URINE SPECIMENOrdering Facility: [facility] Address: [address] [place] [address] Performed By: #### L [id number] ####[facility] LABIA [id number] [place] [address] [place] Urobilinogen Ql (U) 0.2 EU/dL Normal 0.2-1.0 EU/dL [facility] Comment on above: Order Comment: Speci men Type: URINE SPECIMENOrdering Facility: [facility] Address: [address] [place], [place] [id number] Performed By: #### L [id number] ####[facility] LABCLIA [id number] [place]MY [place]OD[id number] [address] [place] Drugs of abuse panel Screen (U)on 04-24-2024 Control Substance Panel, Urine SEE COMMENTS 04/28/2024 10:47 AM Abnormal [facility] Comment on above: Result Comment: NOTE Test Result Flag Unit RefValue - Controlled Substance Monitoring, U List Patient's Current HYDROCODONE Medications ADDITIONAL INFORMATION Accuracy and completeness of declared medications on reports solely dependent on information submitted by client. Creatinine, U 51.0 mg/dL Specific [place] 1.010 pH 5.4 Oxidants Negative -- REFERENCE [...] Not Detected ng/mL Cutoff: 25 Tylenol 3 Oluyksb-0-mcsn- Not Detected ng/mL Cutoff: 100 glucuronide Metabolite of codeine Morphine Not Detected ng/mL Cutoff: 25 Marium Leon, MS Contin; Also a minor metabolite (10%) of codeine and can be seen in low concentrations (<2,000 ng/mL) with poppy seed ingestion. Glrlfptj-0-goxk- Not Detected ng/mL Cutoff: 100 glucuronide Metabolite of morphine 6-monoacetylmorphine Not Detected ng/mL Cutoff: 25 Metabolite of heroin Hydrocodone Present A ng/mL Cutoff: 25 Lortab, [place], Vicodin; Also a very minor metabolite of codeine and impurity (<1%) of oxycodone. Norhydrocodone Present A ng/mL Cutoff: 25 Metabolite of hydrocodone Dihydrocodeine Present A ng/mL Cutoff: 25 Metabolite of hydrocodone Hydromorphone Not Detected ng/mL Cutoff: 25 Dilaudid, Exalgo; Also a metabolite of hydrocodone and a minor (<5%) metabolite of morphine. Qgodeqqtcpkiw-6-fyry- Present A ng/mL Cutoff: 100 glucuronide Metabolite of hydromorphone Oxycodone Not Detected ng/mL Cutoff: 25 Endocet, Percocet, Oxycontin Noroxycodone Not Detected ng/mL Cutoff: 25 Metabolite of oxycodone Oxymorphone Not Detected ng/mL Cutoff: 25 Numorphan, Opana; Also a metabolite of oxycodone. Kuanpmjhgdc-3-fdqv- Not Detected ng/mL Cutoff: 100 glucuronide Metabolite [...] Naloxone Not Detected ng/mL Cutoff: 25 Narcan Unfpawfc-2-moiq- Not Detected ng/mL Cutoff: 100 glucuronide Metabolite [...] of its metabolites (norhydrocodone and dihydrocodeine), and hqnslzjtygfiv-6-amfx-glucuronide (metabolite of hydromorphone). Suspect use of hydrocodone and/or hydromorphone within the past three days. Trace amounts of hydrocodone can also be found as an impurity in hydromorphone. ADDITIONAL INFORMATION This test was developed and its performance characteristics determined by [facility] in a manner consistent with CLIA requirements. 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 Bladder remodeling without VUR. Valsalva voiding with atonic detrusor. Will refer to consider bladder augmentation. Carmenza Nolen MD Voiding cystourethrogram- Voiding Cystourethrogram Patient Name - Aislinn Wheeler Date - April 02, 2024 Imaging exam - VCUG Number of images saved - 11 Patient position - Sitting Radiologic Findings: A [employer]ities [employer] director radiograph was obtained. The bony and soft tissue structures are within normal. 147 ccs contrast were used to fill the bladder. The bladder outline is irregular/trabeculated and abnormal shaped appearing. There is no ureteral reflux. During the voiding phase there is abnormal bladder neck opening and urethra is not visualized. Bladder emptying is not visualized Read (more content not included)... Normal [facility] CNOVon 03-26-2024 CNOV Office Visit (UROLAV ) AISLINN WHEELER ([id number]) 1960 F Date Time Provider Department 03/26/24 [...] Carmenza Nolen MD 03/26/2024 11:54 AM Signed [facility]EM[facility] [...] her bladder. Had bladder botox injections at 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 Normal [facility] UA DIP, URINE (POC)on 2023 BILIRUBIN UA (POCT) Negative Negative [facility] CLARITY UA (POCT) Cloudy [facility] COLOR UA (POCT) Light yellow [facility] GLUCOSE UA (POCT) Negative Negative mg/dL [facility] Hemoglobin Ql (U) Trace-intact Abnormal Negative [facility] Interpretation and review of laboratory results Abnormal [facility] KETONE UA (POCT) Negative Negative mg/dL [facility] LEUKOCYTES UA (POCT) Moderate Abnormal Negative [facility] NITRITE UA (POCT) Negative Negative [facility] PH UA (POCT) 6.0 4.5 - 8.0 [facility] Protein Ql (U) 100 mg/dL Abnormal Negative [facility] SPECIFIC GRAVITY UA (POCT) 1.020 1.005 - 1.030 [facility] UROBILINOGEN UA (POCT) 0.2 Normal E.U./dL [facility] Location:[facility], [address], [place], [place], [address] [facility] POINT OF CARE [facility] Glucose Glucometer (BldC) [M ass/Vol]on 03-15-2024 Glucose [Mass/Vol] 164 mg/dL High 65-99 [facility] CNPNon 02-26-2024 CNPN Telephone (URFHR) AISLINN WHEELER ([id number]) 1960 F Date Time Provider Department 02/26/24 [facility] During your visit today, we recorded the following information about you: Flavio Coon, RN 02/26/2024 2:46 PM Signed Pt LVM asking for her CT scan results. Noted in pt chart was an unread message from regarding the most recent CT scan. LVM for pt and let her know about [employer] message and provided number if pt has [...] [Z86*06/06/2023 MVP (mitral valve prolapse) [I34.1] 06/06/2023 IESHA (iron deficiency anemia) [D50.9] 06/06/2023 Chronic pain [...] Encounter Status:Closed by FLAVIO COON on 02/26/24 [facility] 02-12-2024 [facility] Tele[facility] AISLINN WHEELER ([id number]) 1960 F Date Time Provider Department 02/12/24 VONNIE WILDER [facility] During your visit today, we recorded the [...] [Z86*06/06/2023 MVP (mitral valve prolapse) [I34.1] 06/06/2023 IESHA (iron deficiency anemia) [D50.9] 06/06/2023 Chronic pain [...] Status:Closed by VONNIE WILDER on 02/12/[address] [facility] [address] Kidney WO and W contrast IVOrdered By: Ccf Provider on 02-02-2024 Interpretation and review of laboratory results Abnormal [facility] Radiology Result ACTIONABLE Abnormal [facility] Comment on above: This report contains an [...] contact your provider for the next steps. [facility] CT Kidney WO and W contrast Mirna [...] be communicated with the ordering provider via [employer] staff message or phone message by Imaging [...] any questions regarding this interpretation, please call [phone]. If you are unable to reach us at the number above, please feel free to contact [facility] eRadiology at [phone]. DIVISION OF RADIOLOGY * * *Final Report* * * DATE OF EXAM: Feb 01 2024 3:26PM [facility] 0560 - CT UROGRAM WO/W IVCON / [...] dated 01/20/[address] scan dated 01/17/21 [facility] RESULT: Kidneys and urinary tract: Right: [...] No additional findings. DIVISION OF RADIOLOGY Provider, [facility] - 02/02/2024 * * *Final Report* * * DATE OF EXAM: Feb 01 2024 3:26PM [facility] 0560 - CT UROGRAM WO/W IVCON / [...] be communicated with the ordering provider via [employer] staff message or phone message by Imaging Support Services within 2 business days of report finalization. --END OF FINDING-- Transcribe Date/Time: Feb 02 2024 9:09A Dictated by: AYAZ ADAMS MD This examination was interpreted and the report reviewed and electronically signed by: YAAZ ADAMS MD on Feb 02 2024 9:42AM EST Thank you for allowing us to participate in the care of your patient. Should there be any questions regarding this interpretation, please call [phone]. If you are unable to reach us at the number above, please feel free to contact [facility] eRadiology at [phone]. [facility] CREATININE BLDOrdered By: James Murguia on 02-01-2024 Creatinine [Mass/Vol] 1.78 mg/dL High 0.58 - 0.96 mg/dL [facility] GFR/1.73 sq M.predicted among non-blacks MDRD (S/P/Bld) [Vol rate/Area] 31 mL/min/{1.73_m2} Low - PINF [facility] Comment on above: Estimated Glomerular Filtration Rate [...] of laboratory results Abnormal [facility] CREATININE BLDon 02-01-2024 Creatinine [Mass/Vol] 1.78 mg/dL High 0.58-0.96 [facility] Comment on above: Order Comment: Speci men Type: BLOOD SPECIMENOrdering Facility: [facility] Address: [address] [place] [address] Performed By: #### C RET1 ####[facility] [id number] [place] [address] Creatinine and Glomerular filtration rate.predicted panel (S/P/Bld) 31 mL/min/1.73m??? Low >=60 [facility] Comment on above: Order Comment: Speci men Type: BLOOD SPECIMENOrdering Facility: [facility] Address: [address] [place] [address] Result Comment: Donna mated Glomerular Filtration Rate [...] actual GFR. Performed By: #### C RET1 ####[facility] LABCLIA [id number] [place] [address] CT Kidney WO and W contrast Mirna 02-01-2024 Radiology Study observation (narrative) [facility] CT UROGRAM WO/W IVCONon 01-19 CT UROGRAM WO/W IVCON * * *Final Report* * * DATE OF EXAM: Feb 01 2024 3:26PM [facility] 0560 - CT UROGRAM WO/W IVCON / [...] exposure control (AEC) COMPARISON: CT abdomen/pelvis dated 6/26/23 from an outside institution, MRI kidney dated [...] be communicated with the ordering provider via [employer] staff message or phone message by Imaging [...] any questions regarding this interpretation, please call [phone]. If you are unable to reach us at the number above, please feel free to contact [facility] eRadiology at [phone]. [id number] ACTIONABLE Invalid Interpretation Code [facility] CNOVon 01-12-2024 CNOV Office Visit (URFMOB ) AISLINN WHEELER ([id number]) 1960 F Date Time Provider Department 01/12/24 1:50 PM TAURUS BALLARD During your visit today, we recorded the following information about you: Pulse Blood pressure 75/minute 142/69 Taurus Ballard MD 01/12/2024 2:43 PM Signed [facility] FOLLOW-UP PATIENT HISTORY AND PHYSICAL [...] CT urogram Will refer to Dr. Tamanna Ruiz, ASHVIN.PRODUCT MANAGENT INTERN Attending Note I have personally performed a [...] her ki (more content not included)... Normal [facility] UA DIP, URINE (POC)on 2023 BILIRUBIN UA (POCT) Negative Negative [facility] CLARITY UA (POCT) Clear [facility] COLOR UA (POCT) Yellow [facility] GLUCOSE UA (POCT) 100 mg/dL Abnormal Negative [facility] Hemoglobin Ql (U) Trace-intact Abnormal Negative [facility] Interpretation and review of laboratory results Abnormal [facility] KETONE UA (POCT) Negative Negative mg/dL [facility] LEUKOCYTES UA (POCT) Small Abnormal Negative [facility] NITRITE UA (POCT) Negative Negative [facility] PH UA (POCT) 5.5 4.5 - 8.0 [facility] Protein Ql (U) 100 mg/dL Abnormal Negative [facility] SPECIFIC GRAVITY UA (POCT) 1.015 1.005 - 1.030 [facility] UROBILINOGEN UA (POCT) 0.2 Normal E.U./dL [facility] Location:[facility], [address] [address] [place], [place], [address] [place] [address] POINT OF CARE [facility] ED Note-Physicianon 10-30-19 24 ED Note-Physician [id number]#1.00 TIFF Normal [facility] Lab Reportson 10-30-2023 Lab Reports [id number]#1.00T IFF Normal [facility] Lab Reports [id number]#1.00T IFF Normal [facility] Urology Office/Clinic Noteon 10-26-2023 Urology Office/Clinic Note Chief Complaint S/P to Cysto with Botox HPI Staff KML pt. Here for f/u to Botox 100u done 05/22/23. R/s'd appt from 06/28/23. Previous dx: renal cyst, mixed incontinence, feeling of incomplete bladder emptying, glucosuria. Pt was referred to Dr. Ballard at [facility] for evaluation of robotic left cyst [...] Assessment/Plan 1. Mixed incontinence (N39.46: Mixed incontinence) INSURANCE VERIFICATION REP Aug 2022 c/o UUI>BURKE incontinence, worsening. BURKE [...] procedure. This is confusing bc review of [facility]'s op report shows completely normal events (lidocaine instilled normally, 10 injections of 2ml each) so it's unclear if pt received full 100units or not. Pt called 06/08/23 c/o worsening leakage after Botox. PVR was 174 cc (compared to 142cc prior to botox). KM recommended to start CIC 3x/day for residual, timed voids q2hr, and tight DM control. Pt was in [facility] ER 06/19 and treated for E [...] kidney measuri (more content not included)... Normal [facility] Comment on above: Result Comment: Elec tronically Signed By: HEIDY ARNOLD PA-C\.br\Date and Time Signed: 10/26/23 11:50 EST\.br\Electronically Co-Signed By: Dina Jolly.br\Date and Time Co-Signed: 10/25/23 16:39 EST Ambulatory [...] PA-C, URL When: Where: [address] [place] [address] Medications What How Much When Instructions Unchanged [...] including vitamins, herbs, eye drops, creams, and vwui-inp-oftxsav medicines. ? Any problems you or family [...] Do no (more content not included)... Normal [facility] Patient Educationon 10-25-19 Patient Education Urology [...] including vitamins, herbs, eye drops, creams, and lcrm-ypy-cyjqdkk medicines. ? Any problems you or family [...] tells you to take them. ? Taking nfqd-xxo-dmsbtwk medicines, vitamins, herbs, and supplements. General instructions [...] these instructions at home: Medicines ? Take aucl-cky-rceevei and prescription medicines only as told by [...] health ca (more content not included)... Normal [facility] Glucose Glucometer (BldC) [M ass/Vol]on 10-13-2023 Glucose [Mass/Vol] 276 mg/dL High 65-99 [facility] Glucose Glucometer (BldC) [M ass/Vol]on 09-29-2023 Glucose [Mass/Vol] 356 mg/dL High 65-99 [facility] CNPNon 09-27-2023 CNPN Telephone (FVPRAD) AISLINN WHEELER ([id number]) 1960 F Date Time Provider Department 09/27/23 DREW BUCKNER FVPRAD During your visit today, we recorded the following information about you: Drew Buckner, Research Coordinator 09/27/2023 2:33 PM Signed IRB# [id number]: Vascular events in patients undergoing same-day nonCardiac surgery - [facility] PI: Mary Rojas MD, LETY, FASA. Outcomes Research Department. Anest[facility] [place]. [facility]. Aislinn Wheeler was unavailable at the listed phone number. We will attempt to contact the patient through [employer] message. Drew Esqueda Research Coordinator Research Coordinator Allergies As of Date: 09/27/2023 Noted Allergy Reaction LATEX 02/05/2020 2 - Rash Comments: Added based on information entered during case entry, please review and add reactions, type, and severity as needed Date Reviewed: 09/03/2023 Reviewed by: Chuck Kirk, REY - Fully Assessed Reason for Visit: Research F/U [458] Prescriptions as of 09/27/2023 - pregabalin (LYRICA) [...] [Z86*06/06/2023 MVP (mitral valve prolapse) [I34.1] 06/06/2023 IESHA (iron deficiency anemia) [D50.9] 06/06/2023 Chronic pain [...] Encounter Status:Closed by DREW BUCKNER on 09/27/23 [facility] 09-26-2023 CNPN Telephone (FVPRAD) AISLINN WHEELER ([id number]) 1960 F Date Time Provider Department 09/26/23 DREW BUCKNER FVPRAD During your visit today, we recorded the following information about you: Drew Buckner, Research Coordinator 09/26/2023 3:32 PM Signed IRB# [id number]: Vascular events in patients undergoing same-day nonCardiac surgery - [place] PI: Mary Rojas MD, LETY, FASA. Outcomes Research Department. An[facility] [place]. [facility]. Aislinn Wheeler was unavailable at the listed [...] [Z86*06/06/2023 MVP (mitral valve prolapse) [I34.1] 06/06/2023 IESHA (iron deficiency anemia) [D50.9] 06/06/2023 Chronic pain [...] Encounter Status:Closed by DREW BUCKNER on 09/26/23 [facility] CNDSon 09-04-2023 [facility] HNO ID: [id number] Author: ANTHONY BARROW MD Service: Hospital Medicine [...] Time Provider Department Center 10/06/2023 1:00 PM [facility] BRITTANIE VALDES [facility] Brittanie 10/06/2023 2:00 PM LAB [facility] Brittanie 10/11/2023 1:50 PM [facility]ard [facility] ALLERGIES Allergen Reactions Latex Rash Added [...] U-100 INSULIN SUBCUTANEO (more content not included)... [facility] ALLIED HEALTHon 09-03-2023 [facility] HNO ID: [id number] Author: NICOL MILLIGAN RT(R) Service: Radiology Author [...] Anion gap [Moles/Vol] 10 mmol/L Normal 9-18 [facility] Comment on above: Order Comment: Speci men Type: BLOOD SPECIMEN [facility] Facility: [facility] Address: [address] [place] [address] Performed By: #### 2 4321-2 #### [facility] CLIA [id number] [address] [place] [address] [place] Calcium [Mass/Vol] 8.8 mg/dL Normal 8.5-10.2 [facility] Comment on above: Order Comment: Speci men Type: BLOOD SPECIMEN Ordering Facility: [facility] Address: [address] [place] [address] Performed By: #### 2 4321-2 #### [facility] CLIA [id number] [address] [place] [address] [place] Chloride [Moles/Vol] 103 mmol/L Normal 97-105 [facility] Comment on above: Order Comment: Speci men Type: BLOOD SPECIMEN Ordering Facility: [facility] Address: [address] [place] [address] Performed By: #### 2 4321-2 #### [facility] CLIA [id number] [address] [place] [address] [place] CO2 [Moles/Vol] 23 mmol/L Normal 22-30 [facility] Comment on above: Order Comment: Speci men Type: BLOOD SPECIMEN Ordering Facility: [facility] Address: [address] [place] [address] Performed By: #### 2 4321-2 #### [facility] CLIA [id number] [address] [place] [address] [place] Creatinine [Mass/Vol] 1.29 mg/dL High 0.58-0.96 [facility] Comment on above: Order Comment: Speci men Type: BLOOD SPECIMEN Ordering Facility: [facility] Address: [address] [place] [address] Performed By: #### 2 4321-2 #### [facility] CLIA [id number] [address] [place] [address] [place] Creatinine and Glomerular filtration rate.predicted panel (S/P/Bld) 46 mL/min/1.73m??? Low >=60 [facility] Comment on above: Order Comment: Speci men Type: BLOOD SPECIMEN Ordering Facility: [facility] Address: [address] [place] [address] Result Comment: Donna mated Glomerular Filtration Rate [...] GFR. Performed By: #### 2 4321-2 #### [facility] CLIA [id number] [place] [address] [place] Glucose [Mass/Vol] 123 mg/dL High 74-99 [facility] Comment on above: Order Comment: [place] Type: BLOOD SPECIMEN Ordering Facility: [facility] Address: [address] [place] [address] Result Comment: The [place] Diabetes Association (ADA) provides guidance for cutoff [...] Standards of Medical Care in Diabetes 2016, [place] [employer] Association. Diabetes Care. 2016.39(Suppl 1). Performed By: #### 2 4321-2 #### [facility] CLIA [id number] [address] [place], [place] [address] [place] Potassium [Moles/Vol] 5.0 mmol/L Normal 3.7-5.1 [facility] Comment on above: Order Comment: [place] Type: BLOOD SPECIMEN Ordering Facility: [facility] Address: [address] [place] [address] Performed By: #### 2 4321-2 #### [facility] CLIA [id number] [place], [place] [address] [place] Sodium [Moles/Vol] 136 mmol/L Normal 136-144 [facility] Comment on above: Order Comment: Speci men Type: BLOOD SPECIMEN Ordering Facility: [facility] Address: [address] [place] [address] Performed By: #### 2 4321-2 #### [facility] CLIA [id number] [place] [address] [place] Urea nitrogen [Mass/Vol] 22 mg/dL High 7-21 [facility] Comment on above: Order Comment: Speci men Type: BLOOD SPECIMEN Ordering Facility: [facility] Address: [address] [place] [address] Performed By: #### 2 4321-2 #### [facility] CLIA [id number] [address] [place] [address] [place] CBC panel Auto (Bld)on 09-03 Erythrocyte distribution width (RBC) [Ratio] 14.6 % Normal 11.5-15.0 [facility] Comment on above: Order Comment: Speci men Type: BLOOD SPECIMEN Ordering Facility: [facility] Address: [address] [place] [address] Performed By: #### B HB, 85592-5 #### [facility] CLIA [id number] [address] [place] [address] [place] Hematocrit (Bld) [Volume fraction] 28.7 % Low 36.0-46.0 [facility] Comment on above: Order Comment: Speci men Type: BLOOD SPECIMEN Ordering Facility: [facility] Address: [address] [place] [address] Performed By: #### B HB, 71423-9 #### [facility] CLIA [id number] [address] [place] [address] [place] Hemoglobin (Bld) [Mass/Vol] 8.9 g/dL Low 11.5-15.5 [facility] Comment on above: Order Comment: Speci men Type: BLOOD SPECIMEN Ordering Facility: [facility] Address: [address] [place] [address] Performed By: #### B HB, 05537-8 #### [facility] CLIA [id number] [address] [place] [address] STATES [facility] MCH (RBC) [Entitic mass] 24.1 pg Low 26.0-34.0 [facility] Comment on above: Order Comment: Speci men Type: BLOOD SPECIMEN Ordering Facility: [facility] Address: [address] [place] [address] Performed By: #### B HB, #### [facility] CLIA [id number] [address] [place] [address] [place] MCHC (RBC) [Mass/Vol] 31.0 g/dL Normal 30.5-36.0 [facility] Comment on above: Order Comment: Speci men Type: BLOOD SPECIMEN Ordering Facility: [facility] Address: [address] [place] [address] Performed By: #### B HB, #### [facility] CLIA [id number] [address] [place] [address] [place] MCV (RBC) [Entitic vol] 77.6 fL Low 80.0-100.0 [facility] Comment on above: Order Comment: Speci men Type: BLOOD SPECIMEN Ordering Facility: [facility] Address: [address] [place] [address] Performed By: #### B HB, #### [facility] CLIA [id number] [address] [place] [address] [place] Nucleated RBC (Bld) [#/Vol] 10*3/uL Normal <0.01 [facility] Comment on above: Order Comment: Speci men Type: BLOOD SPECIMEN Ordering Facility: [facility] Address: [address] [place] [address] Performed By: #### B HB, #### [facility] CLIA [id number] [address] [place] [address] [place] Platelet mean volume (Bld) [Entitic vol] 10.8 fL Normal 9.0-12.7 [facility] Comment on above: Order Comment: Speci men Type: BLOOD SPECIMEN Ordering Facility: [facility] Address: [address] [place] [address] Performed By: #### B HB, #### [facility] CLIA [id number] [place] [address] [place] Platelets (Bld) [#/Vol] 334 10*3/uL Normal 150-400 [facility] Comment on above: Order Comment: Speci men Type: BLOOD SPECIMEN Ordering Facility: [facility] Address: [address] [place] [address] Performed By: #### B HB, 06463-6 #### [facility] CLIA [id number] [address] [place] [address] [place] RBC (Bld) [#/Vol] 3.70 10*6/uL Low 3.90-5.20 [facility] Comment on above: Order Comment: Speci men Type: BLOOD SPECIMEN Ordering Facility: [facility] Address: [address] [place] [address] Performed By: #### B HB, 64945-7 #### [facility] CLIA [id number] [address] [place] [address] [place] WBC (Bld) [#/Vol] 6.44 10*3/uL Normal 3.70-11.00 [facility] Comment on above: Order Comment: Speci men Type: BLOOD SPECIMEN Ordering Facility: [facility] Address: [address] [place] [address] Performed By: #### B HB, 38035-6 #### [facility] CLIA [id number] [address] [place] [address] [place] CT FOOT WO [...] NO EVIDENCE OF OSTEOMYELITIS ON THIS EXAMINATION. Whiskey Proof Reader: PSCB Transcribe Date/Time: Sep 03 2023 11:22P Dictated by : FINESSE BUTLER MD This examination was interpreted and the report reviewed and electronically signed by: FINESSE BUTLER MD on Sep 03 2023 11:27PM EST [id number] Normal [facility] Basic metabolic 2000 panelon 09-02-2023 Anion gap [Moles/Vol] 9 mmol/L Normal 9-18 [facility] Comment on above: Order Comment: Speci men Type: BLOOD SPECIMEN Ordering Facility: [facility] Address: [address] [place] [address] Performed By: #### B HB, 97709-5 #### [facility] CLIA [id number] [address] [place] [address] [place] Calcium [Mass/Vol] 8.1 mg/dL Low 8.5-10.2 [facility] Comment on above: Order Comment: Speci men Type: BLOOD SPECIMEN Ordering Facility: [facility] Address: [address] [place] [address] Performed By: #### B HB, 35834-3 #### [facility] CLIA [id number] [address] [place] [address] [place] Chloride [Moles/Vol] 106 mmol/L High 97-105 [facility] Comment on above: Order Comment: Speci men Type: BLOOD SPECIMEN Ordering Facility: [facility] Address: [address] [place] [address] Performed By: #### B HB, 44651-5 #### [facility] CLIA [id number] [address] [place] [address] [place] CO2 [Moles/Vol] 22 mmol/L Normal 22-30 [facility] Comment on above: Order Comment: Simonai men Type: BLOOD SPECIMEN Ordering Facility: [facility] Address: [address] [place] [address] Performed By: #### B HB, 24352-1 #### [facility] CLIA [id number] [address] [place] [address] [place] Creatinine [Mass/Vol] 1.30 mg/dL High 0.58-0.96 [facility] Comment on above: Order Comment: Simonai men Type: BLOOD SPECIMEN Ordering Facility: [facility] Address: [address] [place] [address] Performed By: #### B HB, #### [facility] CLIA [id number] [address] [place] [address] OF [facility] Creatinine and Glomerular filtration rate.predicted panel (S/P/Bld) 46 mL/min/1.73m??? Low >=60 [facility] Comment on above: Order Comment: Simonai men Type: BLOOD SPECIMEN Ordering Facility: [facility] Address: [address] [place] [address] Result Comment: Donna mated Glomerular Filtration Rate [...] actual GFR. Performed By: #### B HB, 73505-1 #### [facility] CLIA [id number] [address] [place] [address] [place] Glucose [Mass/Vol] 192 mg/dL High 74-99 [facility] Comment on above: Order Comment: Speci men Type: BLOOD SPECIMEN Ordering Facility: [facility] Address: [address] [place] [address] Result Comment: The [place] [employer] (ADA) provides guidance for cutoff [...] Standards of Medical Care in Diabetes 2016, [place] [employer]. Diabetes Care. 2016.39(Suppl 1). Performed By: #### B [place], 08600-9 #### [facility] CLIA [id number] [address] [place] [address] [place] Potassium [Moles/Vol] 4.9 mmol/L Normal 3.7-5.1 [facility] Comment on above: Order Comment: [place] Type: BLOOD SPECIMEN Ordering Facility: [facility] Address: [address] [place] [address] Performed By: #### [place], 64502-5 #### [facility] CLIA [id number] [address] [place] [address] [place] Sodium [Moles/Vol] 137 mmol/L Normal 136-144 [facility] Comment on above: Order Comment: [place] Type: BLOOD SPECIMEN Ordering Facility: [facility] Address: [address] [place] [address] Performed By: #### B [place], 34134-2 #### [facility] CLIA [id number] [address] [place] [address] [place] Urea nitrogen [Mass/Vol] 17 mg/dL Normal 7-21 [facility] Comment on above: Order Comment: [place] Type: BLOOD SPECIMEN Ordering Facility: [facility] Address: [address] [place] [address] Performed By: #### B [place], 25810-5 #### [facility] CLIA [id number] [address] [place] [address] [place] CBC panel Auto (Bld)on 09-02 Erythrocyte distribution width (RBC) [Ratio] 14.6 % Normal 11.5-15.0 [facility] Comment on above: Order Comment: Speci men Type: BLOOD SPECIMEN Ordering Facility: [facility] Address: [address] [place] [address] Performed By: #### B HB, #### [facility] CLIA [id number] [address] [place] [address] [place] Hematocrit (Bld) [Volume fraction] 28.4 % Low 36.0-46.0 [facility] Comment on above: Order Comment: Speci men Type: BLOOD SPECIMEN Ordering Facility: [facility] Address: [address] [place] [address] Performed By: #### B HB, #### [facility] CLIA [id number] [address] [place] [address] [place] Hemoglobin (Bld) [Mass/Vol] 8.9 g/dL Low 11.5-15.5 [facility] Comment on above: Order Comment: Speci men Type: BLOOD SPECIMEN Ordering Facility: [facility] Address: [address] [place] [address] Performed By: #### B HB, #### [facility] CLIA [id number] [address] [place] [address] [place] MCH (RBC) [Entitic mass] 24.2 pg Low 26.0-34.0 [facility] Comment on above: Order Comment: Speci men Type: BLOOD SPECIMEN Ordering Facility: [facility] Address: [address] [place] [address] Performed By: #### B HB, #### [facility] CLIA [id number] [address] [place] [address] [place] MCHC (RBC) [Mass/Vol] 31.3 g/dL Normal 30.5-36.0 [facility] Comment on above: Order Comment: Speci men Type: BLOOD SPECIMEN Ordering Facility: [facility] Address: [address] [place] [address] Performed By: #### B HB, #### [facility] CLIA [id number] [address] [place] [address] [place] MCV (RBC) [Entitic vol] 77.2 fL Low 80.0-100.0 [facility] Comment on above: Order Comment: Speci men Type: BLOOD SPECIMEN Ordering Facility: [facility] Address: [address] [place] [address] Performed By: #### B HB, 90713-8 #### [facility] CLIA [id number] [address] [place] [address] [place] Nucleated RBC (Bld) [#/Vol] 10*3/uL Normal <0.01 [facility] Comment on above: Order Comment: Speci men Type: BLOOD SPECIMEN Ordering Facility: [facility] Address: [address] [place] [address] Performed By: #### B HB, #### [facility] CLIA [id number] [address] [place] [address] [place] Platelet mean volume (Bld) [Entitic vol] 10.4 fL Normal 9.0-12.7 [facility] Comment on above: Order Comment: Speci men Type: BLOOD SPECIMEN Ordering Facility: [facility] Address: [address] [place] [address] Performed By: #### B HB, #### [facility] CLIA [id number] [address] [place] [address] [place] Platelets (Bld) [#/Vol] 285 10*3/uL Normal 150-400 [facility] Comment on above: Order Comment: Speci men Type: BLOOD SPECIMEN Ordering Facility: [facility] Address: [address] [place] [address] Performed By: #### B HB, 78957-5 #### [facility] CLIA [id number] [address] [place] [address] [place] RBC (Bld) [#/Vol] 3.68 10*6/uL Low 3.90-5.20 [facility] Comment on above: Order Comment: Speci men Type: BLOOD SPECIMEN Ordering Facility: [facility] Address: [address] [place] [address] Performed By: #### B HB, 74224-4 #### [facility] CLIA [id number] [address] [place] [address] [place] WBC (Bld) [#/Vol] 5.94 10*3/uL Normal 3.70-11.00 [facility] Comment on above: Order Comment: Speci men Type: BLOOD SPECIMEN Ordering Facility: [facility] Address: [address] [place] [address] Performed By: #### B HB, #### [facility] CLIA [id number] [address] [place] [address] [place] Bacteria Ur Culton 4 Bacteria identified Cx Nom (U) CULTURE, URINE: No growth (<1,000 CFU/ml) Normal [facility] Comment on above: Performed By: #### 6 30-4 #### [facility] CLIA [id number] [address] [facility] DESK [id number] [place] [address] [place] Basic metabolic 2000 panelon 09-01-2023 Anion gap [Moles/Vol] 10 mmol/L Normal 9-18 [facility] Comment on above: Order Comment: Speci men Type: BLOOD SPECIMEN Ordering Facility: [facility] Address: [address] [place] [address] Performed By: #### B HB, #### [facility] CLIA [id number] [address] [place] [address] [place] Calcium [Mass/Vol] 7.9 mg/dL Low 8.5-10.2 [facility] Comment on above: Order Comment: Speci men Type: BLOOD SPECIMEN Ordering Facility: [facility] Address: [address] [place] [address] Performed By: #### B HB, 87888-6 #### [facility] CLIA [id number] [place] [address] [place] Chloride [Moles/Vol] 108 mmol/L High 97-105 [facility] Comment on above: Order Comment: Speci men Type: BLOOD SPECIMEN Ordering Facility: [facility] Address: [address] [place] [address] Performed By: #### B HB, 41575-7 #### [facility] CLIA [id number] [address] [place] [address] [place] CO2 [Moles/Vol] 20 mmol/L Low 22-30 [facility] Comment on above: Order Comment: Speci men Type: BLOOD SPECIMEN Ordering Facility: [facility] Address: [address] [place] [address] Performed By: #### B HB, #### [facility] CLIA [id number] [address] [place] [address] [place] Creatinine [Mass/Vol] 1.39 mg/dL High 0.58-0.96 [facility] Comment on above: Order Comment: Speci men Type: BLOOD SPECIMEN Ordering Facility: [facility] Address: [address] [place] [address] Performed By: #### B HB, 93582-6 #### [facility] CLIA [id number] [address] [place] [address] [place] Creatinine and Glomerular filtration rate.predicted panel (S/P/Bld) 42 mL/min/1.73m??? Low >=60 [facility] Comment on above: Order Comment: Speci men Type: BLOOD SPECIMEN Ordering Facility: [facility] Address: [address] [place] [address] Result Comment: Donna mated Glomerular Filtration Rate [...] actual GFR. Performed By: #### B HB, 14903-7 #### [facility] CLIA [id number] [place] [address] [place] Glucose [Mass/Vol] 74 mg/dL Normal 74-99 [facility] Comment on above: Order Comment: Speci men Type: BLOOD SPECIMEN Ordering Facility: [facility] Address: [address] [place] [address] Result Comment: The [place] [employer] (ADA) provides guidance for cutoff [...] Standards of Medical Care in Diabetes 2016, [place] [employer]. Diabetes Care. 2016.39(Suppl 1). Performed By: #### B HB, 43605-8 #### [facility] CLIA [id number] [address] [place] [address] [place] Potassium [Moles/Vol] 4.7 mmol/L Normal 3.7-5.1 [facility] Comment on above: Order Comment: Speci men Type: BLOOD SPECIMEN Ordering Facility: [facility] Address: [address] [place] [address] Performed By: #### B HB, 34087-9 #### [facility] CLIA [id number] [address] [place] [address] [place] Sodium [Moles/Vol] 138 mmol/L Normal 136-144 [facility] Comment on above: Order Comment: Speci men Type: BLOOD SPECIMEN Ordering Facility: [facility] Address: [address] [place] [address] Performed By: #### B HB, 62397-8 #### [facility] CLIA [id number] [address] [place] [address] [place] Urea nitrogen [Mass/Vol] 25 mg/dL High 7-21 [facility] Comment on above: Order Comment: Speci men Type: BLOOD SPECIMEN Ordering Facility: [facility] Address: [address] [place] [address] Performed By: #### B HB, 45563-3 #### [facility] CLIA [id number] [address] [place] [address] [place] CBC panel Auto (Bld)on 09-01 Erythrocyte distribution width (RBC) [Ratio] 14.7 % Normal 11.5-15.0 [facility] Comment on above: Order Comment: Speci men Type: BLOOD SPECIMEN Ordering Facility: [facility] Address: [address] [place] [address] Performed By: #### B HB, #### [facility] CLIA [id number] [address] [place] [address] [place] Hematocrit (Bld) [Volume fraction] 29.4 % Low 36.0-46.0 [facility] Comment on above: Order Comment: Speci men Type: BLOOD SPECIMEN Ordering Facility: [facility] Address: [address] [place] [address] Performed By: #### B HB, #### [facility] CLIA [id number] [address] [place] [address] [place] Hemoglobin (Bld) [Mass/Vol] 9.1 g/dL Low 11.5-15.5 [facility] Comment on above: Order Comment: Speci men Type: BLOOD SPECIMEN Ordering Facility: [facility] Address: [address] [place] [address] Performed By: #### B HB, #### [facility] CLIA [id number] [address] [place] [address] [place] MCH (RBC) [Entitic mass] 24.4 pg Low 26.0-34.0 [facility] Comment on above: Order Comment: Speci men Type: BLOOD SPECIMEN Ordering Facility: [facility] Address: [address] [place] [address] Performed By: #### B HB, #### [facility] CLIA [id number] [address] [place] [address] [place] MCHC (RBC) [Mass/Vol] 31.0 g/dL Normal 30.5-36.0 [facility] Comment on above: Order Comment: Speci men Type: BLOOD SPECIMEN Ordering Facility: [facility] Address: [address] [place] [address] Performed By: #### B HB, #### [facility] CLIA [id number] [address] [place] [address] [place] MCV (RBC) [Entitic vol] 78.8 fL Low 80.0-100.0 [facility] Comment on above: Order Comment: Speci men Type: BLOOD SPECIMEN Ordering Facility: [facility] Address: [address] [place] [address] Performed By: #### B HB, #### [facility] CLIA [id number] [address] [place] [address] [place] Nucleated RBC (Bld) [#/Vol] 10*3/uL Normal <0.01 [facility] Comment on above: Order Comment: Speci men Type: BLOOD SPECIMEN Ordering Facility: [facility] Address: [address] [place] [address] Performed By: #### B HB, #### [facility] CLIA [id number] [address] [place] [address] [place] Platelet mean volume (Bld) [Entitic vol] 10.8 fL Normal 9.0-12.7 [facility] Comment on above: Order Comment: Speci men Type: BLOOD SPECIMEN Ordering Facility: [facility] Address: [address] [place] [address] Performed By: #### B HB, #### [facility] CLIA [id number] [address] [place] [address] [place] Platelets (Bld) [#/Vol] 275 10*3/uL Normal 150-400 [facility] Comment on above: Order Comment: Speci men Type: BLOOD SPECIMEN Ordering Facility: [facility] Address: [address] [place] [address] Performed By: #### B HB, #### [facility] CLIA [id number] [address] [place] [address] [place] RBC (Bld) [#/Vol] 3.73 10*6/uL Low 3.90-5.20 [facility] Comment on above: Order Comment: Speci men Type: BLOOD SPECIMEN Ordering Facility: [facility] Address: [address] [place] [address] Performed By: #### B HB, 54033-3 #### [facility] CLIA [id number] [place] [address] [place] WBC (Bld) [#/Vol] 7.48 10*3/uL Normal 3.70-11.00 [facility] Comment on above: Order Comment: Speci men Type: BLOOD SPECIMEN Ordering Facility: [facility] Address: [address] [place] [address] Performed By: #### B HB, 87255-0 #### [facility] CLIA [id number] [address] [place] [address] CONSULTon 09-01-2023 CONSULT HNO ID: [id number] Author: NORMAN ROUSSEAU RN Service: ? Author [...] 2023 TIME: 10:44 AM PAGER/CONTACT #: Normal [facility] Magnesium SerPl-mCncon 09-01 Magnesium [Mass/Vol] 1.5 mg/dL Low 1.7-2.3 [facility] Comment on above: Order Comment: Speci men Type: BLOOD SPECIMEN Ordering Facility: [facility] Address: [address] [place] [address] Performed By: #### B HB, 70429-7 #### [facility] CLIA [id number] [address] [place] [address] URINALYSIS, REFLEX MICROSCOP ICon 09-01-2023 Bacteria LM.HPF (Urine sed) [#/Area] Few Abnormal None Seen [facility] Comment on above: Order Comment: Speci men Type: BLOOD SPECIMEN Ordering Facility: [facility] Address: [address] [place] [address] Performed By: #### B HB, #### [facility] CLIA [id number] [address] [place] [address] [place] Bilirubin Ql (U) Negative Normal Negative [facility] Comment on above: Order Comment: Speci men Type: BLOOD SPECIMEN Ordering Facility: [facility] Address: [address] [place] [address] Performed By: #### B HB, #### [facility] CLIA [id number] [address] [place] [address] [place] Clarity (Unsp spec) Turbid Abnormal Clear [facility] Comment on above: Order Comment: Speci men Type: BLOOD SPECIMEN Ordering Facility: [facility] Address: [address] [place] [address] Performed By: #### B HB, #### [facility] CLIA [id number] [address] [place] [address] [place] Color (U) Light Yellow Normal Yellow [facility] Comment on above: Order Comment: Speci men Type: BLOOD SPECIMEN Ordering Facility: [facility] Address: [address] [place] [address] Performed By: #### B HB, #### [facility] CLIA [id number] [address] [place] [address] [place] Epithelial cells LM.HPF (Urine sed) [#/Area] Few Normal [facility] Comment on above: Order Comment: Speci men Type: BLOOD SPECIMEN Ordering Facility: [facility] Address: [address] [place] [address] Performed By: #### B HB, #### [facility] CLIA [id number] [address] [place] [address] [place] Glucose Test strip (U) [Mass/Vol] Negative Normal Trace, Negative [facility] Comment on above: Order Comment: Speci men Type: BLOOD SPECIMEN Ordering Facility: [facility] Address: [address] [place] [address] Performed By: #### B HB, #### [facility] CLIA [id number] [address] [place] [address] [place] Hemoglobin Ql (U) 1+ Abnormal Negative, Trace [facility] Comment on above: Order Comment: Speci men Type: BLOOD SPECIMEN Ordering Facility: [facility] Address: [address] [place] [address] Performed By: #### B HB, #### [facility] CLIA [id number] [address] [place] [address] [place] Ketones Ql (U) Negative Normal Negative, Trace [facility] Comment on above: Order Comment: Speci men Type: BLOOD SPECIMEN Ordering Facility: [facility] Address: [address] [place] [address] Performed By: #### B HB, #### [facility] CLIA [id number] [address] [place] [address] [place] Leukocyte esterase Test strip Ql (U) 500 Liam/uL Abnormal Negative, 25 Liam/uL [facility] Comment on above: Order Comment: Speci men Type: BLOOD SPECIMEN Ordering Facility: [facility] Address: [address] [place] [address] Performed By: #### B HB, #### [facility] CLIA [id number] [address] [place] [address] [place] Nitrite Ql (U) Negative Normal Negative [facility] Comment on above: Order Comment: Speci men Type: BLOOD SPECIMEN Ordering Facility: [facility] Address: [address] [place] [address] Performed By: #### B HB, #### [facility] CLIA [id number] [address] [place] [address] [place] pH (U) 6.0 [pH] Normal 5.0-8.0 [facility] Comment on above: Order Comment: Speci men Type: BLOOD SPECIMEN Ordering Facility: [facility] Address: [address] [place] [address] Performed By: #### B HB, 12597-6 #### [facility] CLIA [id number] [address] [place] [address] [place] Protein (U) [Mass/Vol] 1+ Abnormal Trace, Negative [facility] Comment on above: Order Comment: Speci men Type: BLOOD SPECIMEN Ordering Facility: [facility] Address: [address] [place] [address] Performed By: #### B HB, 48778-1 #### [facility] CLIA [id number] [address] [place] [address] [place] RBC LM.HPF (Urine sed) [#/Area] /[HPF] Abnormal 0-3 /HPF [facility] Comment on above: Order Comment: Speci men Type: BLOOD SPECIMEN Ordering Facility: [facility] Address: [address] [place] [address] Performed By: #### B HB, #### [facility] CLIA [id number] [address] [place] [address] [place] Specific gravity (U) [Rel density] 1.011 Normal 1.005-1.030 [facility] Comment on above: Order Comment: Speci men Type: BLOOD SPECIMEN Ordering Facility: [facility] Address: [address] [place] [address] Performed By: #### B HB, #### [facility] CLIA [id number] [address] [place] [address] [place] Urobilinogen Ql (U) Negative Normal Negative [facility] Comment on above: Order Comment: Speci men Type: BLOOD SPECIMEN Ordering Facility: [facility] Address: [address] [place] [address] Performed By: #### B HB, 69560-8 #### [facility] CLIA [id number] [address] [place] [address] [place] WBC LM.HPF (Urine sed) [#/Area] /[HPF] Abnormal 0-5 /HPF [facility] Comment on above: Order Comment: Speci men Type: BLOOD SPECIMEN Ordering Facility: [facility] Address: [address] [place] [address] Performed By: #### B , 88806-0 #### [facility] CLIA [id number] [place] [address] [place] ALLIED HEALTHon 08-31-2023 ALLIED HEALTH HNO ID: [id number] Author: LAKISHA LITTLE RT(R) Service: ? Author [...] RT Chriss(R) August 31, 2023 4:44 AM [facility] Bacteria Bld Culton 08-31-19 24 Bacteria identified Cx Nom (Bld) CULTURE, BLOOD: No growth 5 days Normal [facility] Comment on above: Performed By: #### 6 00-7 ####[facility] [id number] [address] [place] Bacteria Ur Culton 4 [...] technique or straight catheterization for???urine???collectio n. Normal [facility] Comment on above: Performed By: #### 6 30-4 #### [facility] CLIA [id number] [address] [facility] [place] [address] [place] CBC W Auto Differential pane l (Bld)on 08-31-2023 Basophils (Bld) [#/Vol] 0.03 10*3/uL Normal <0.11 [facility] Comment on above: Order Comment: Speci men Type: BLOOD SPECIMEN Ordering Facility: [facility] Address: [address] [place] [address] Performed By: #### B HB, #### [facility] CLIA [id number] [address] [place] [address] [place] Basophils/100 WBC (Bld) 0.3 % Normal [facility] Comment on above: Order Comment: Speci men Type: BLOOD SPECIMEN Ordering Facility: [facility] Address: [address] [place] [address] Performed By: #### B HB, #### [facility] CLIA [id number] [address] [place] [address] [place] Differential cell count method Nom (Bld) Auto Normal [facility] Comment on above: Order Comment: Speci men Type: BLOOD SPECIMEN Ordering Facility: [facility] Address: [address] [place] [address] Performed By: #### B HB, #### [facility] CLIA [id number] [address] [place] [address] [place] Eosinophils (Bld) [#/Vol] 10*3/uL Normal <0.46 [facility] Comment on above: Order Comment: Speci men Type: BLOOD SPECIMEN Ordering Facility: [facility] Address: [address] [place] [address] Performed By: #### B HB, #### [facility] CLIA [id number] [address] [place] [address] [place] Eosinophils/100 WBC (Bld) 0.1 % Normal [facility] Comment on above: Order Comment: Speci men Type: BLOOD SPECIMEN Ordering Facility: [facility] Address: [address] [place] [address] Performed By: #### B HB, #### [facility] CLIA [id number] [address] [place] [address] [place] Erythrocyte distribution width (RBC) [Ratio] 14.5 % Normal 11.5-15.0 [facility] Comment on above: Order Comment: Speci men Type: BLOOD SPECIMEN Ordering Facility: [facility] Address: [address] [place] [address] Performed By: #### B HB, #### [facility] CLIA [id number] [address] [place] [address] [place] Hematocrit (Bld) [Volume fraction] 31.5 % Low 36.0-46.0 [facility] Comment on above: Order Comment: Speci men Type: BLOOD SPECIMEN Ordering Facility: [facility] Address: [address] [place] [address] Performed By: #### B HB, #### [facility] CLIA [id number] [address] [place] [address] [place] Hemoglobin (Bld) [Mass/Vol] 10.0 g/dL Low 11.5-15.5 [facility] Comment on above: Order Comment: Speci men Type: BLOOD SPECIMEN Ordering Facility: [facility] Address: [address] [place] [address] Performed By: #### B HB, #### [facility] CLIA [id number] [address] [place] [address] [place] Immature granulocytes (Bld) [#/Vol] 0.06 10*3/uL Normal <0.10 [facility] Comment on above: Order Comment: Speci men Type: BLOOD SPECIMEN Ordering Facility: [facility] Address: [address] [place] [address] Performed By: #### B HB, #### [facility] CLIA [id number] [address] [place] [address] [place] Immature granulocytes/100 WBC (Bld) 0.7 % Normal [facility] Comment on above: Order Comment: Speci men Type: BLOOD SPECIMEN Ordering Facility: [facility] Address: [address] [place] [address] Performed By: #### B HB, #### [facility] CLIA [id number] [address] [place] [address] [place] Lymphocytes (Bld) [#/Vol] 1.67 10*3/uL Normal 1.00-4.00 [facility] Comment on above: Order Comment: Speci men Type: BLOOD SPECIMEN Ordering Facility: [facility] Address: [address] [place] [address] Performed By: #### B HB, #### [facility] CLIA [id number] [address] [place] [address] Lymphocytes/100 WBC (Bld) 18.8 % Normal [facility] Comment on above: Order Comment: Speci men Type: BLOOD SPECIMEN Ordering Facility: [facility] Address: [address] [place] [address] Performed By: #### B HB, #### [facility] CLIA [id number] [address] [place] [address] [place] MCH (RBC) [Entitic mass] 24.5 pg Low 26.0-34.0 [facility] Comment on above: Order Comment: Speci men Type: BLOOD SPECIMEN Ordering Facility: [facility] Address: [address] [place] [address] Performed By: #### B HB, #### [facility] CLIA [id number] [address] [place] [address] [place] MCHC (RBC) [Mass/Vol] 31.7 g/dL Normal 30.5-36.0 [facility] Comment on above: Order Comment: Speci men Type: BLOOD SPECIMEN Ordering Facility: [facility] Address: [address] [place] [address] Performed By: #### B HB, #### [facility] CLIA [id number] [address] [place] [address] [place] MCV (RBC) [Entitic vol] 77.2 fL Low 80.0-100.0 [facility] Comment on above: Order Comment: Speci men Type: BLOOD SPECIMEN Ordering Facility: [facility] Address: [address] [place] [address] Performed By: #### B HB, #### [facility] CLIA [id number] [address] [place] [address] [place] Monocytes (Bld) [#/Vol] 0.71 10*3/uL Normal <0.87 [facility] Comment on above: Order Comment: Speci men Type: BLOOD SPECIMEN Ordering Facility: [facility] Address: [address] [place] [address] Performed By: #### B HB, #### [facility] CLIA [id number] [address] [place] [address] [place] Monocytes/100 WBC (Bld) 8.0 % Normal [facility] Comment on above: Order Comment: Speci men Type: BLOOD SPECIMEN Ordering Facility: [facility] Address: [address] [place] [address] Performed By: #### B HB, #### [facility] CLIA [id number] [address] [place] [address] [place] Neutrophils (Bld) [#/Vol] 6.39 10*3/uL Normal 1.45-7.50 [facility] Comment on above: Order Comment: Speci men Type: BLOOD SPECIMEN Ordering Facility: [facility] Address: [address] [place] [address] Performed By: #### B HB, #### [facility] CLIA [id number] [address] [place] [address] [place] Neutrophils/100 WBC (Bld) 72.1 % Normal [facility] Comment on above: Order Comment: Speci men Type: BLOOD SPECIMEN Ordering Facility: [facility] Address: [address] [place] [address] Performed By: #### B HB, #### [facility] CLIA [id number] [address] [place] [address] [place] Nucleated RBC (Bld) [#/Vol] 10*3/uL Normal <0.01 [facility] Comment on above: Order Comment: Speci men Type: BLOOD SPECIMEN Ordering Facility: [facility] Address: [address] [place] [address] Performed By: #### B HB, #### [facility] CLIA [id number] [address] [place] [address] [place] Nucleated RBC/100 WBC (Bld) [Ratio] 0.0 /100 WBC Normal [facility] Comment on above: Order Comment: Speci men Type: BLOOD SPECIMEN Ordering Facility: [facility] Address: [address] [place] [address] Performed By: #### B HB, #### [facility] CLIA [id number] [address] [place] [address] [place] Platelet mean volume (Bld) [Entitic vol] 11.3 fL Normal 9.0-12.7 [facility] Comment on above: Order Comment: Speci men Type: BLOOD SPECIMEN Ordering Facility: [facility] Address: [address] [place] [address] Performed By: #### B HB, #### [facility] CLIA [id number] [address] [place] [address] [place] Platelets (Bld) [#/Vol] 316 10*3/uL Normal 150-400 [facility] Comment on above: Order Comment: Speci men Type: BLOOD SPECIMEN Ordering Facility: [facility] Address: [address] [place] [address] Performed By: #### B HB, #### [facility] CLIA [id number] [address] [place] [address] [place] RBC (Bld) [#/Vol] 4.08 10*6/uL Normal 3.90-5.20 [facility] Comment on above: Order Comment: Speci men Type: BLOOD SPECIMEN Ordering Facility: [facility] Address: [address] [place] [address] Performed By: #### B HB, #### [facility] CLIA [id number] [address] [place] [address] [place] WBC (Bld) [#/Vol] 8.87 10*3/uL Normal 3.70-11.00 [facility] Comment on above: Order Comment: Speci men Type: BLOOD SPECIMEN Ordering Facility: [facility] Address: [address] [place] [address] Performed By: #### B HB, 11686-2 #### [facility] CLIA [id number] [address] [place] [address] [place] Comprehensive metabolic 2000 panelon 08-31-2023 Albumin [Mass/Vol] 3.7 g/dL Low 3.9-4.9 [facility] Comment on above: Order Comment: Speci men Type: BLOOD SPECIMEN Ordering Facility: [facility] Address: [address] [place] [address] Performed By: #### B HB, 13805-2 #### [facility] CLIA [id number] [address] [place] [address] [place] ALP [Catalytic activity/Vol] 99 U/L Normal 34-123 [facility] Comment on above: Order Comment: Speci men Type: BLOOD SPECIMEN Ordering Facility: [facility] Address: [address] [place] [address] Performed By: #### B HB, 46686-1 #### [facility] CLIA [id number] [address] [place] [address] [place] ALT [Catalytic activity/Vol] U/L Low 7-38 [facility] Comment on above: Order Comment: Speci men Type: BLOOD SPECIMEN Ordering Facility: [facility] Address: [address] [place] [address] Performed By: #### B HB, 65849-2 #### [facility] CLIA [id number] [address] [place] [address] [place] Anion gap [Moles/Vol] 12 mmol/L Normal 9-18 [facility] Comment on above: Order Comment: Speci men Type: BLOOD SPECIMEN Ordering Facility: [facility] Address: [address] [place] [address] Performed By: #### B HB, #### [facility] CLIA [id number] [address] [place] [address] [place] AST [Catalytic activity/Vol] 7 U/L Low 13-35 [facility] Comment on above: Order Comment: Speci men Type: BLOOD SPECIMEN Ordering Facility: [facility] Address: [address] [place] [address] Performed By: #### B HB, #### [facility] CLIA [id number] [address] [place] [address] [place] Bilirubin [Mass/Vol] 0.3 mg/dL Normal 0.2-1.3 [facility] Comment on above: Order Comment: Speci men Type: BLOOD SPECIMEN Ordering Facility: [facility] Address: [address] [place] [address] Performed By: #### B HB, #### [facility] CLIA [id number] [address] [place] [address] [place] Calcium [Mass/Vol] 8.7 mg/dL Normal 8.5-10.2 [facility] Comment on above: Order Comment: Speci men Type: BLOOD SPECIMEN Ordering Facility: [facility] Address: [address] [place] [address] Performed By: #### B HB, #### [facility] CLIA [id number] [address] [place] [address] [place] Chloride [Moles/Vol] 99 mmol/L Normal 97-105 [facility] Comment on above: Order Comment: Speci men Type: BLOOD SPECIMEN Ordering Facility: [facility] Address: [address] [place] [address] Performed By: #### B HB, #### [facility] CLIA [id number] [address] [place] [address] [place] CO2 [Moles/Vol] 19 mmol/L Low 22-30 [facility] Comment on above: Order Comment: Speci men Type: BLOOD SPECIMEN Ordering Facility: [facility] Address: [address] [place] [address] Performed By: #### B HB, 89751-3 #### [facility] CLIA [id number] [address] [place] [address] [place] Creatinine [Mass/Vol] 2.15 mg/dL High 0.58-0.96 [facility] Comment on above: Order Comment: [facility] Type: BLOOD SPECIMEN Ordering Facility: [facility] Address: [address] [place] [address] Performed By: #### B HB, 77706-8 #### [facility] CLIA [id number] [place] [address] [place] Creatinine and Glomerular filtration rate.predicted panel (S/P/Bld) 25 mL/min/1.73m??? Low >=60 [facility] Comment on above: Order Comment: [place] Type: BLOOD SPECIMEN Ordering Facility: [facility] Address: [address] [place] [address] Result Comment: Donna mated Glomerular Filtration Rate [...] actual GFR. Performed By: #### B HB, 63651-9 #### [facility] CLIA [id number] [place] [address] [place] Glucose [Mass/Vol] 428 mg/dL High 74-99 [facility] Comment on above: Order Comment: [place] Type: BLOOD SPECIMEN Ordering Facility: [facility] Address: [address] [place] [address] Result Comment: The [place] [employer] (ADA) provides guidance for cutoff [...] Standards of Medical Care in Diabetes 2016, [place] [employer]. Diabetes Care. 2016.39(Suppl 1). Performed By: #### B HB, 46067-2 #### [facility] CLIA [id number] [address] [place] [address] [place] Potassium [Moles/Vol] 5.2 mmol/L High 3.7-5.1 [facility] Comment on above: Order Comment: Speci men Type: BLOOD SPECIMEN Ordering Facility: [facility] Address: [address] [place] [address] Performed By: #### B HB, #### [facility] CLIA [id number] [address] [place] [address] [place] Protein [Mass/Vol] 9.1 g/dL High 6.3-8.0 [facility] Comment on above: Order Comment: Speci men Type: BLOOD SPECIMEN Ordering Facility: [facility] Address: [address] [place] [address] Performed By: #### B HB, 45121-3 #### [facility] CLIA [id number] [address] [place] [address] [place] Sodium [Moles/Vol] 130 mmol/L Low 136-144 [facility] Comment on above: Order Comment: Speci men Type: BLOOD SPECIMEN Ordering Facility: [facility] Address: [address] [place] [address] Performed By: #### B HB, 31557-5 #### [facility] CLIA [id number] [address] [place] [address] [place] Urea nitrogen [Mass/Vol] 39 mg/dL High 7-21 [facility] Comment on above: Order Comment: Speci men Type: BLOOD SPECIMEN Ordering Facility: [facility] Address: [address] [place] [address] Performed By: #### B HB, 37159-8 #### [facility] CLIA [id number] [address] [place] [address] [place] ECG COMPLETEon 08-31-2023 ECG COMPLETE Ventricular Rate : 7 1 BPM Atrial Rate : 71 BPM P-R Interval : 166 ms QRS Duration : 80 ms Q-T Interval : 396 ms QTC Calculation(Bazett) : 431 ms Calculated P Batchelor : 82 degrees Calculated R Batchelor : 71 degrees Calculated T Batchelor : 48 degrees Sinus rhythm Normal ECG NO STEMI. 0752 Confirmed by MD DE LEON MICHAEL ([id number]), non linear editor THERESA SEAY ([id number]) on 08/31/2023 1:24:15 PM NAME : AISLINN WHEELER PID : [id number] : 1960 Gender : Female Race : ORD : [id number] Procedure Date : Aug 31 2023 07:16:42 Edit Date : Aug 31 2023 13:24:16 Diagnosis: Sinus rhythm Normal ECG NO STEMI. 0752 Confirmed by MD DE LEON MICHAEL ([id number]), non linear editor THERESA SEAY ([id number]) on 08/31/2023 1:24:15 PM Test Reason : Chest Pain Location : 402 : FVED fved05 Overread By : MD DE LEON MICHAEL Edited By : THERESA SEAY Referred By : , Acquired by : [id number], [facility] ECG COMPLETE Ventricular Rate : 8 8 BPM Atrial Rate : 88 BPM P-R Interval : 153 ms QRS Duration : 78 ms Q-T Interval : 370 ms QTC Calculation(Bazett) : 448 ms Calculated P Batchelor : 85 degrees Calculated R Batchelor : 69 degrees Calculated T Batchelor : 62 degrees Sinus rhythm Normal ECG NO STEMI. 0604 Confirmed by KASIE SANDOVAL MD ([id number]), non linear editor THERESA SEAY ([id number]) on 08/31/2023 1:02:55 PM NAME : AISLINN WHEELER PID : [id number] : 1960 Gender : Female Race : ORD : [id number] Procedure Date : Aug 31 2023 04:17:52 Edit Date : Aug 31 2023 13:02:57 Diagnosis: Sinus rhythm Normal ECG NO STEMI. 0604 Confirmed by KASIE SANDOVAL MD ([id number]), non linear editor THERESA SEAY ([id number]) on 08/31/2023 1:02:55 PM Test Reason : Arrhythmia Location : 402 : FVED fved05 Overread By : KASIE SANDOVAL MD Edited By : THERESA SEAY Referred By : , Acquired by : [id number], [facility] ED PROV NOTEon 08-31-2023 ED PROV NOTE HNO ID: [id number] Author: RAYNA RHODES PA-C Service: Emergency Medicine Author Type: Physician Employee Counselor Type: ED Provider Notes Filed: 08/31/2023 08:06 [...] left foot. Pt states she saw her ballistics expert and was directed to come to the [...] rarely occurring (more content not included)... Normal [facility] FLUABV+SARS-CoV-2+RSV Pnl Re sp ADRIEL+probeon 08-31-2023 FLUABV+SARS-CoV-2+RS V Pnl Resp ADRIEL+probe COVID 19 RESULT: Not detected The method used is RT-PCR or an equivalent NAAT method. Reference Range(the expected result in uninfected individuals): Not detected INFLUENZA A PCR: Not detected INFLUENZA B PCR: Not detected RSV PCR: Not detected Normal [facility] Comment on above: Performed By: #### 9 5941-1 ####[facility] [id number] [place] [address] [place] Gas and Carbon monoxide pane l (BldV)on 08-31-2023 BASE DEFICIT, VENOUS -5 mmol/L Low -2-0 [facility] Comment on above: Order Comment: Speci men Type: VENOUS BLOOD SPECIMEN Ordering Facility: [facility] Address: [address] [place] [address] Performed By: #### 2 4344-4 #### [facility] CLIA [id number] [address] [place] [address] [place] Body temperature 100.04 [degF] Normal [facility] Comment on above: Order Comment: Speci men Type: VENOUS BLOOD SPECIMEN Ordering Facility: [facility] Address: [address] [place] [address] Performed By: #### 2 4344-4 #### [facility] CLIA [id number] [address] [place] [address] [place] Calcium.ionized (Bld) [Mass/Vol] 1.08 mmol/L Normal 1.08-1.30 [facility] Comment on above: Order Comment: Speci men Type: VENOUS BLOOD SPECIMEN Ordering Facility: [facility] Address: [address] [place] [address] Performed By: #### 2 4344-4 #### [facility] CLIA [id number] [address] [place] [address] [place] Calcium.ionized adjusted to pH 7.4 (BldA) [Moles/Vol] 1.06 mmol/L Low 1.08-1.30 [facility] Comment on above: Order Comment: Speci men Type: VENOUS BLOOD SPECIMEN Ordering Facility: [facility] Address: [address] [place] [address] Performed By: #### 2 4344-4 #### [facility] CLIA [id number] [address] [place] [address] [place] Carboxyhemoglobin (BldV) [Mass fraction] 3.8 % High 0.0-2.0 [facility] Comment on above: Order Comment: Speci men Type: VENOUS BLOOD SPECIMEN Ordering Facility: [facility] Address: [address] [place] [address] Result Comment: Carb oxyhemoglobin Reference Range for Smokers: 2.0-8.0% Performed By: #### 2 4344-4 #### [facility] CLIA [id number] [address] [place] [address] [place] Chloride [Moles/Vol] 106 mmol/L High 97-105 [facility] Comment on above: Order Comment: Speci men Type: VENOUS BLOOD SPECIMEN Ordering Facility: [facility] Address: [address] [place] [address] Performed By: #### 2 4344-4 #### [facility] CLIA [id number] [address] [place] [address] [place] CO2 (BldV) [Partial pressure] 35 mm[Hg] Low 42-55 [facility] Comment on above: Order Comment: Speci men Type: VENOUS BLOOD SPECIMEN Ordering Facility: [facility] Address: [address] [place] [address] Performed By: #### 2 4344-4 #### [facility] CLIA [id number] [address] [place] [address] [place] CO2 adjusted to patient's actual temperature (BldV) [Partial pressure] Normal [facility] Comment on above: Order Comment: Speci men Type: VENOUS BLOOD SPECIMEN Ordering Facility: [facility] Address: [address] [place] [address] Performed By: #### 2 4344-4 #### [facility] CLIA [id number] [address] [place] [address] [place] Glucose [Mass/Vol] 460 mg/dL High 60-105 [facility] Comment on above: Order Comment: Speci men Type: VENOUS BLOOD SPECIMEN Ordering Facility: [facility] Address: [address] [place] [address] Performed By: #### 2 4344-4 #### [facility] CLIA [id number] [address] [place] [address] [place] HCO3 (Bld) [Moles/Vol] 19 mmol/L Low 24-28 [facility] Comment on above: Order Comment: Speci men Type: VENOUS BLOOD SPECIMEN Ordering Facility: [facility] Address: [address] [place] [address] Performed By: #### 2 4344-4 #### [facility] CLIA [id number] [address] [place] [address] [place] Hematocrit (Bld) [Volume fraction] 29.7 % Low 36.0-46.0 [facility] Comment on above: Order Comment: Speci men Type: VENOUS BLOOD SPECIMEN Ordering Facility: [facility] Address: [address] [place] [address] Performed By: #### 2 4344-4 #### [facility] CLIA [id number] [address] [place] [address] [place] Hemoglobin (Bld) [Mass/Vol] 9.6 g/dL Low 11.5-15.5 [facility] Comment on above: Order Comment: Speci men Type: VENOUS BLOOD SPECIMEN Ordering Facility: [facility] Address: [address] [place] [address] Performed By: #### 2 4344-4 #### [facility] CLIA [id number] [address] [place] [address] [place] Lactate [Moles/Vol] 1.1 mmol/L Normal 0.5-2.2 [facility] Comment on above: Order Comment: Speci men Type: VENOUS BLOOD SPECIMEN Ordering Facility: [facility] Address: [address] [place] [address] Performed By: #### 2 4344-4 #### [facility] CLIA [id number] [address] [place] [address] [place] Methemoglobin (Bld) [Mass fraction] 1.1 % Normal 0.0-1.5 [facility] Comment on above: Order Comment: Speci men Type: VENOUS BLOOD SPECIMEN Ordering Facility: [facility] Address: [address] [place] [address] Performed By: #### 2 4344-4 #### [facility] CLIA [id number] [address] [place] [address] [place] O2 THERAPY RA=Room Air Normal [facility] Comment on above: Order Comment: Speci men Type: VENOUS BLOOD SPECIMEN Ordering Facility: [facility] Address: [address] [place] [address] Performed By: #### 2 4344-4 #### [facility] CLIA [id number] [address] [place] [address] [place] Oxygen (BldV) [Partial pressure] 118 mm[Hg] High 35-45 [facility] Comment on above: Order Comment: Speci men Type: VENOUS BLOOD SPECIMEN Ordering Facility: [facility] Address: [address] [place] [address] Performed By: #### 2 4344-4 #### [facility] CLIA [id number] [address] [place] [address] [place] Oxygen adjusted to patient's actual temperature (BldV) [Partial pressure] Normal [facility] Comment on above: Order Comment: Speci men Type: VENOUS BLOOD SPECIMEN Ordering Facility: [facility] Address: [address] [place] [address] Performed By: #### 2 4344-4 #### [facility] CLIA [id number] [address] [place] [address] [place] Oxygen saturation in Venous blood 99 % High 60-85 [facility] Comment on above: Order Comment: Speci men Type: VENOUS BLOOD SPECIMEN Ordering Facility: [facility] Address: [address] [place] [address] Performed By: #### 2 4344-4 #### [facility] CLIA [id number] [address] [place] [address] [place] Oxyhemoglobin (BldV) [Mass fraction] 94 % High 60-85 [facility] Comment on above: Order Comment: Speci men Type: VENOUS BLOOD SPECIMEN Ordering Facility: [facility] Address: [address] [place] [address] Performed By: #### 2 4344-4 #### [facility] CLIA [id number] [address] [place] [address] [place] pH (BldV) 7.37 [pH] Normal 7.32-7.42 [facility] Comment on above: Order Comment: Speci men Type: VENOUS BLOOD SPECIMEN Ordering Facility: [facility] Address: [address] [place] [address] Performed By: #### 2 4344-4 #### [facility] CLIA [id number] [address] [place] [address] [place] pH adjusted to patient's actual temperature (BldV) Normal [facility] Comment on above: Order Comment: Speci men Type: VENOUS BLOOD SPECIMEN Ordering Facility: [facility] Address: [address] [place] [address] Performed By: #### 2 4344-4 #### [facility] CLIA [id number] [address] [place] [address] [place] Potassium [Moles/Vol] 5.3 mmol/L High 3.5-5.0 [facility] Comment on above: Order Comment: Speci men Type: VENOUS BLOOD SPECIMEN Ordering Facility: [facility] Address: [address] [place] [address] Performed By: #### 2 4344-4 #### [facility] CLIA [id number] STATES OF [facility] Sodium [Moles/Vol] 133 mmol/L Low 136-144 [facility] Comment on above: Order Comment: Speci men Type: VENOUS BLOOD SPECIMEN Ordering Facility: [facility] Address: [address] [place] [address] Performed By: #### 2 4344-4 #### [facility] CLIA [id number] [address] [place] [id number] [place] HISTORY PHYSICALon HISTORY PHYSICAL HNO ID: [id number] Author: ANTHONY BARROW MD Service: Hospital Medicine [...] left foot ulcer that patient was seen ballistics expert as outpatient for and advised her to [...] nts 08/31/23 1115 activity - mobilize patient (wi,ar) VTE Prophylaxis: VTE prophylaxis appropriate SIGNATURE: Anthony Barrow MD PATIENT NAME: Aislinn Wheeler DATE: August 31, 2023 TIME: 11:03 AM PAGER/CONTACT #: Normal [facility] KETONES/ACETONE/BHBon 2023 Beta hydroxybutyrate [Moles/Vol] 0.50 mmol/L High <0.28 [facility] Comment on above: Order Comment: Speci men Type: BLOOD SPECIMEN Ordering Facility: [facility] Address: [address] [place] [address] Performed By: #### B HB, 39371-5 #### [facility] CLIA [id number] [address] [place] [address] [place] POTASSIUM BLDon 08-31-2023 Potassium [Moles/Vol] 4.6 mmol/L Normal 3.7-5.1 [facility] Comment on above: Order Comment: Speci men Type: BLOOD SPECIMEN Ordering Facility: [facility] Address: [address] [place] [address] Performed By: #### B HB, 80012-1 #### [facility] CLIA [id number] [address] [place] [address] [place] SEPSIS LACTATEon 08-31-2023 Lactate [Moles/Vol] 1.2 mmol/L Normal 0.0-2.0 [facility] Comment on above: Order Comment: Speci men Type: BLOOD SPECIMEN Ordering Facility: [facility] Address: [address] [place] [address] Performed By: #### B HB, #### [facility] CLIA [id number] [address] [place] [address] [place] Urinalysis complete panel (U )on 08-31-2023 Bacteria LM.HPF (Urine sed) [#/Area] Many Abnormal None Seen [facility] Comment on above: Order Comment: Speci men Type: BLOOD SPECIMEN Ordering Facility: [facility] Address: [address] [place] [address] Performed By: #### B HB, #### [facility] CLIA [id number] [address] [place] [address] [place] Bilirubin Ql (U) Negative Normal Negative [facility] Comment on above: Order Comment: Speci men Type: BLOOD SPECIMEN Ordering Facility: [facility] Address: [address] [place] [address] Performed By: #### B HB, #### [facility] CLIA [id number] [address] [place] [address] [place] Clarity (Unsp spec) Turbid Abnormal Clear [facility] Comment on above: Order Comment: Speci men Type: BLOOD SPECIMEN Ordering Facility: [facility] Address: [address] [place] [address] Performed By: #### B HB, #### [facility] CLIA [id number] [address] [place] [address] [place] Color (U) Light Yellow Normal Yellow [facility] Comment on above: Order Comment: Speci men Type: BLOOD SPECIMEN Ordering Facility: [facility] Address: [address] [place] [address] Performed By: #### B HB, #### [facility] CLIA [id number] [address] [place] [address] [place] Glucose Test strip (U) [Mass/Vol] 4+ Abnormal Trace, Negative [facility] Comment on above: Order Comment: Speci men Type: BLOOD SPECIMEN Ordering Facility: [facility] Address: [address] [place] [address] Performed By: #### B HB, #### [facility] CLIA [id number] [address] [place] [address] [place] Hemoglobin Ql (U) Trace Normal Negative, Trace [facility] Comment on above: Order Comment: Speci men Type: BLOOD SPECIMEN Ordering Facility: [facility] Address: [address] [place] [address] Performed By: #### B HB, #### [facility] CLIA [id number] [address] [place] [address] [place] Ketones Ql (U) Negative Normal Negative, Trace [facility] Comment on above: Order Comment: Speci men Type: BLOOD SPECIMEN Ordering Facility: [facility] Address: [address] [place] [address] Performed By: #### B HB, #### [facility] CLIA [id number] [address] [place] [address] [place] Leukocyte esterase Test strip Ql (U) 500 Liam/uL Abnormal Negative, 25 Liam/uL [facility] Comment on above: Order Comment: Speci men Type: BLOOD SPECIMEN Ordering Facility: [facility] Address: [address] [place] [address] Performed By: #### B HB, #### [facility] CLIA [id number] [address] [place] [address] [place] Nitrite Ql (U) Negative Normal Negative [facility] Comment on above: Order Comment: Speci men Type: BLOOD SPECIMEN Ordering Facility: [facility] Address: [address] [place] [address] Performed By: #### B HB, #### [facility] CLIA [id number] [address] [place] [address] [place] pH (U) 6.0 [pH] Normal 5.0-8.0 [facility] Comment on above: Order Comment: Speci men Type: BLOOD SPECIMEN Ordering Facility: [facility] Address: [address] [place] [address] Performed By: #### B HB, #### [facility] CLIA [id number] [address] [place] [address] [place] Protein (U) [Mass/Vol] 1+ Abnormal Trace, Negative [facility] Comment on above: Order Comment: Speci men Type: BLOOD SPECIMEN Ordering Facility: [facility] Address: [address] [place] [address] Performed By: #### B HB, #### [facility] CLIA [id number] [address] [place] [address] [place] RBC LM.HPF (Urine sed) [#/Area] 3-5 /HPF Abnormal 0-3 /HPF [facility] Comment on above: Order Comment: Speci men Type: BLOOD SPECIMEN Ordering Facility: [facility] Address: [address] [place] [address] Performed By: #### B HB, #### [facility] CLIA [id number] [address] [place] [address] [place] Specific gravity (U) [Rel density] 1.017 Normal 1.005-1.030 [facility] Comment on above: Order Comment: Speci men Type: BLOOD SPECIMEN Ordering Facility: [facility] Address: [address] [place] [address] Performed By: #### B HB, #### [facility] CLIA [id number] [address] [place] [address] [place] Urobilinogen Ql (U) Negative Normal Negative [facility] Comment on above: Order Comment: Speci men Type: BLOOD SPECIMEN Ordering Facility: [facility] Address: [address] [place] [address] Performed By: #### B HB, #### [facility] CLIA [id number] [address] [place] [address] [place] WBC LM.HPF (Urine sed) [#/Area] /[HPF] Abnormal 0-5 /HPF [facility] Comment on above: Order Comment: Speci men Type: BLOOD SPECIMEN Ordering Facility: [facility] Address: [place] [address] Performed By: #### B , 22815-8 #### [id number] [address] [place] [id number] [place] XR CHEST 1V [...] Fatigue and malaise, Fatigue and malaise (accession [id number]), Osteomyelitis (accession [id number]) MQ: XC1_5 Comparison: CT 01/17/2021, radiograph 01/17/2021 [...] performed for increased sensitivity, as clinically warranted. Whiskey Proof Reader: PSCB Transcribe Date/Time: Aug 31 2023 4:46A Dictated by : TAURUS MORTON MD This examination was interpreted and the report reviewed and electronically signed by: TAURUS MORTON MD on Aug 31 2023 4:51AM EST [id number] Normal [facility] XR FOOT 3V AP/LAT/OBL LTon 0 [...] Fatigue and malaise, Fatigue and malaise (accession [id number]), Osteomyelitis (accession [id number]) MQ: XC1_5 Comparison: CT 01/17/2021, radiograph 01/17/2021 [...] performed for increased sensitivity, as clinically warranted. Whiskey Proof Reader: GUILLE Transcribe Date/Time: Aug 31 2023 4:46A Dictated by : TAURUS MORTON MD This examination was interpreted and the report reviewed and electronically signed by: TAURUS MORTON MD on Aug 31 2023 4:51AM EST [id number] Normal [facility] Benzodiazepines Screen Ql (U )on 08-09-2023 Benzodiazepines Ql (U) Negative Normal NEG [facility] Comment on above: Result Comment: Lenny odiazepines screening cut off value = 200 ng/mL This report is intended for use in clinical monitoring or management of patients. Performed By: #### 1 4316-4 #### [facility] ([id number]) [address] [place] [address], [place] [address] CCL GENERIC ORDERon 08-09-20 TEST NAME UQNTPP URINE PAIN PA VEGA QUANT Normal [facility] Comment on above: Result Comment: Wesley ected on 08/09 AT 1743: Previously reported as UQNTPP Performed By: #### C GO #### [facility] ([id number]) [address] [place] [address] TEST RESULT See Below Normal [facility] Comment on above: Result Comment: NOTE TEST RESULT FLAG UNIT REF.RANGE ----- Specimen Validity Quality See below Specimen quality results within acceptable limits Specimen Validity Creatinine 31.8 mg/dL 20.0-300.0 Specimen Validity PH 5.4 4.5-8.0 Specimen Validity Specific [place] 1.006 1.003-1.035 Specimen Validity Oxidants <38 mg/L [...] carboxylic acid (THCA) is a metabolite of mgiui-8-dsvpmilzqjvhzvihaxho which is the main active component of marijuana. Fentanyl, Urine <6 ng/mL <6 Buprenorphine, Ur <20 ng/mL <20 Methadone Urine <16 ng/mL <16 Methadone metabolite Urine <6 ng/mL <6 EDDP is a metabolite of methadone. Note See Below This test is for medical use only. This test was developed and its performance characteristics determined by [facility] Taurus Melendrez [facility] Pathology and Laboratory Medicine [place] ([facility] It has not been cleared or approved by the FDA. -[facility] is regulated under CLIA as qualified to perform high-complexity testing. This test is used for clinical purposes. It should not be regarded as investigational or for research. URINE PAIN PANEL QUANT Test Performed By: [facility] [address] [place] [address] Finance Teacher: Oswald Munguia III, M.D. CLIA #[id number] Performed By: #### C GO #### [facility] ([id number]) [address] [place] [address], [place] [address] Operative Reporton Operative Report [id number]#1.00T IFF Normal [facility] Pathology Noteon 08-07-2023 Pathology Note [id number]#1.00 TIFF Normal [facility] ED Note-Physicianon 06-29-20 ED Note-Physician [id number]#1.00T IFF Normal [facility] Patient Letter FTMCon 2022 Patient Letter [facility] (Inserted Image. Grecia ble to display) June 28, 2023 AISLINN WHEELER [address] [place] [id number] : 1960 Dear Aislinn, You missed your [...] future cancellations. Sincerely, [facility] [address], [place] [address] Pt called and RS'd. Normal [facility] Basic metabolic 2000 panelon 06-23-2023 Anion gap [Moles/Vol] 9 mmol/L Normal 05-08 [facility] Comment on above: Order Comment: Speci men Type: BLOOD SPECIMEN Ordering Facility: [facility] Address: [address] [place] [address] Performed By: #### B HB, 50132-6 #### [facility] CLIA [id number] [address] [place] [address] [place] Calcium [Mass/Vol] 7.3 mg/dL Low 8.5-10.2 [facility] Comment on above: Order Comment: Speci men Type: BLOOD SPECIMEN Ordering Facility: [facility] Address: [address] [place] [address] Performed By: #### B HB, 92920-4 #### [facility] CLIA [id number] [address] [place] [address] [place] Chloride [Moles/Vol] 110 mmol/L High 97-105 [facility] Comment on above: Order Comment: Speci men Type: BLOOD SPECIMEN Ordering Facility: [facility] Address: [address] [place] [address] Performed By: #### B HB, #### [facility] CLIA [id number] [address] [place] [address] [place] CO2 [Moles/Vol] 19 mmol/L Low 22-30 [facility] Comment on above: Order Comment: Speci men Type: BLOOD SPECIMEN Ordering Facility: [facility] Address: [address] [place] [address] Performed By: #### B HB, 95118-5 #### [facility] CLIA [id number] [address] [place] [address] [place] Creatinine [Mass/Vol] 1.39 mg/dL High 0.58-0.96 [facility] Comment on above: Order Comment: Speci men Type: BLOOD SPECIMEN Ordering Facility: [facility] Address: [address] [place] [address] Performed By: #### B HB, 02269-0 #### [facility] CLIA [id number] [address] [place] [address] [place] Creatinine and Glomerular filtration rate.predicted panel (S/P/Bld) 42 mL/min/1.73m??? Low >=60 [facility] Comment on above: Order Comment: Speci men Type: BLOOD SPECIMEN Ordering Facility: [facility] Address: [address] [place] [address] Result Comment: Donna mated Glomerular Filtration Rate [...] actual GFR. Performed By: #### B HB, 29689-2 #### [facility] CLIA [id number] [address] [place] [address] [place] Glucose [Mass/Vol] 157 mg/dL High 74-99 [facility] Comment on above: Order Comment: Speci men Type: BLOOD SPECIMEN Ordering Facility: [facility] Address: [address] [place] [address] Result Comment: The [place] Diabetes Association (ADA) provides guidance for cutoff [...] Standards of Medical Care in Diabetes 2016, [place] [employer]. Diabetes Care. 2016.39(Suppl 1). Performed By: #### B HB, 42572-3 #### [facility] CLIA [id number] [address] [place] [address] [place] Potassium [Moles/Vol] 5.1 mmol/L Normal 3.7-5.1 [facility] Comment on above: Order Comment: Speci men Type: BLOOD SPECIMEN Ordering Facility: [facility] Address: [address] [place] [address] Performed By: #### B HB, 02439-8 #### [facility] CLIA [id number] [address] [place] [address] [place] Sodium [Moles/Vol] 138 mmol/L Normal 136-144 [facility] Comment on above: Order Comment: Speci men Type: BLOOD SPECIMEN Ordering Facility: [facility] Address: [address] [place] [address] Performed By: #### B HB, 86747-1 #### [facility] CLIA [id number] STATES [facility] Urea nitrogen [Mass/Vol] 21 mg/dL Normal 7-21 [facility] Comment on above: Order Comment: Speci men Type: BLOOD SPECIMEN Ordering Facility: [facility] Address: [address] [place] [address] Performed By: #### B HB, #### [facility] CLIA [id number] [address] [place] [address] CBC panel Auto (Bld)on 06-23 Erythrocyte distribution width (RBC) [Ratio] 14.4 % Normal 11.5-15.0 [facility] Comment on above: Order Comment: Speci men Type: BLOOD SPECIMEN Ordering Facility: [facility] Address: [address] [place] [address] Performed By: #### B HB, #### [facility] CLIA [id number] [address] [place] [address] Hematocrit (Bld) [Volume fraction] 28.5 % Low 36.0-46.0 [facility] Comment on above: Order Comment: Speci men Type: BLOOD SPECIMEN Ordering Facility: [facility] Address: [address] [place] [address] Performed By: #### B HB, 01955-7 #### [facility] CLIA [id number] [address] [place] [address] [place] Hemoglobin (Bld) [Mass/Vol] 9.0 g/dL Low 11.5-15.5 [facility] Comment on above: Order Comment: Speci men Type: BLOOD SPECIMEN Ordering Facility: [facility] Address: [address] [place] [address] Performed By: #### B HB, #### [facility] CLIA [id number] [address] [place] [address] [place] MCH (RBC) [Entitic mass] 25.2 pg Low 26.0-34.0 [facility] Comment on above: Order Comment: Speci men Type: BLOOD SPECIMEN Ordering Facility: [facility] Address: [address] [place] [address] Performed By: #### B HB, #### [facility] CLIA [id number] [address] [place] [address] [place] MCHC (RBC) [Mass/Vol] 31.6 g/dL Normal 30.5-36.0 [facility] Comment on above: Order Comment: Speci men Type: BLOOD SPECIMEN Ordering Facility: [facility] Address: [address] [place] [address] Performed By: #### B HB, #### [facility] CLIA [id number] [address] [place] [address] [place] MCV (RBC) [Entitic vol] 79.8 fL Low 80.0-100.0 [facility] Comment on above: Order Comment: Speci men Type: BLOOD SPECIMEN Ordering Facility: [facility] Address: [address] [place] [address] Performed By: #### B HB, #### [facility] CLIA [id number] [address] [place] [address] [place] Nucleated RBC (Bld) [#/Vol] 10*3/uL Normal <0.01 [facility] Comment on above: Order Comment: Speci men Type: BLOOD SPECIMEN Ordering Facility: [facility] Address: [address] [place] [address] Performed By: #### B HB, #### [facility] CLIA [id number] [address] [place] [address] [place] Platelet mean volume (Bld) [Entitic vol] 10.6 fL Normal 9.0-12.7 [facility] Comment on above: Order Comment: Speci men Type: BLOOD SPECIMEN Ordering Facility: [facility] Address: [address] [place] [address] Performed By: #### B HB, #### [facility] CLIA [id number] [address] [place] [address] [place] Platelets (Bld) [#/Vol] 251 10*3/uL Normal 150-400 [facility] Comment on above: Order Comment: Speci men Type: BLOOD SPECIMEN Ordering Facility: [facility] Address: [address] [place] [address] Performed By: #### B HB, 32794-1 #### [facility] CLIA [id number] [address] [place] [address] [place] RBC (Bld) [#/Vol] 3.57 10*6/uL Low 3.90-5.20 [facility] Comment on above: Order Comment: Speci men Type: BLOOD SPECIMEN Ordering Facility: [facility] Address: [address] [place] [address] Performed By: #### B HB, 98902-1 #### [facility] CLIA [id number] [address] [place] [address] [place] WBC (Bld) [#/Vol] 7.47 10*3/uL Normal 3.70-11.00 [facility] Comment on above: Order Comment: Speci men Type: BLOOD SPECIMEN Ordering Facility: [facility] Address: [address] [place] [address] Performed By: #### B HB, 11153-5 #### [facility] CLIA [id number] [place] CNDSon 06-23-2023 CNDS HNO ID: [id number] Author: Annie Martinez APRN.PRODUCT MANAGENT INTERN Service: Urology Author Type: Nurse Practitioner Type: [...] this patient's care. Taurus Ballard MD [facility] [place] [phone] or [phone] [facility] C O N F I D E N T I A L I N F O R M A T I O N ------ STANDARD [facility] DOCUMENT DISCHARGE SUMMARY Patient Name: Aislinn [...] These medications were sent to [facility] [address] [place] [address] Hours: Monday-Monday: 7am-7pm, Sat: 9am-1pm acetaminophen 325 mg tablet docusate sodium 100 mg capsule Future Appointments: No future appointments. Electronically SIGNED by Licensed Independent Practitioner: Annie Martinez APRN.[facility] [place] 06-23-2023 [facility] Telephone ([facility] AISLINN WHEELER ([id number]) 1960 F Date Time Provider Department 06/23/23 HEIDY GARCIA URFHR During your visit today, we recorded the following information about you: Heidy Garcia RN 06/23/2023 9:05 AM Signed Patient had left robotic partial nephrectomy by Dr. Ballard on 06/22/2023 Will call for surgical follow up once discharged Heidy Garcia RN 06/26/2023 10:45 AM Signed Patient phone number non functioning. Active in EPIS, will send message inquiring on how she's feeling post-operatively. Vonnie Wilder RN 06/27/2023 10:15 AM Signed Spoke with grand daughter, Lola, as this office is unable to reach patient for post op call. Lola reports, that patient's phone is turned off, and she does not know how to use [employer]. 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 Author Type: Registered Nurse [...] EVALon 023 ANES POSTPROC EVAL HNO ID: [id number] Author: Rikki Jhaveri MD Service: Anesthesiology Author [...] June 22, 2023 TIME: 2:18 PM CSN: [id number] [facility] ANES PRE-OPon 06-22-2023 ANES PRE-OP HNO ID: [id number] Author: Rikki Jhaveri MD Service: Anesthesiology Author [...] (HCC) -RENAL (+) ANATOLIY (acute kidney injury) ([facility]) (+) Stage 3a chronic kidney disease ([facility]) NEURO-PSYCH (+) History of TIA (transient ischemic [...] a current smoker. NPO Status: adequate Beta Rainer Monitoring Plan Monitoring plan: standard ASA and [...] June 22, 2023 TIME: 9:54 AM CSN: [id number] Normal [facility] Basic metabolic 2000 panelon 06-22-2023 Anion gap [Moles/Vol] 7 mmol/L Low 9-18 [facility] Comment on above: Order Comment: Speci men Type: BLOOD SPECIMEN Ordering Facility: [facility] Address: [address] [place] [address] Performed By: #### 2 4321-2 #### [facility] CLIA [id number] [address] [place] [address] [place] Calcium [Mass/Vol] 7.5 mg/dL Low 8.5-10.2 [facility] Comment on above: Order Comment: Speci men Type: BLOOD SPECIMEN Ordering Facility: [facility] Address: [address] [place] [address] Performed By: #### 2 4321-2 #### [facility] CLIA [id number] [address] [place] [address] [place] Chloride [Moles/Vol] 108 mmol/L High 97-105 [facility] Comment on above: Order Comment: Speci men Type: BLOOD SPECIMEN Ordering Facility: [facility] Address: [address] [place] [address] Performed By: #### 2 4321-2 #### [facility] CLIA [id number] [address] [place] [address] [place] CO2 [Moles/Vol] 19 mmol/L Low 22-30 [facility] Comment on above: Order Comment: Speci men Type: BLOOD SPECIMEN Ordering Facility: [facility] Address: [address] [place] [address] Performed By: #### 2 4321-2 #### [facility] CLIA [id number] [address] [place] [address] [place] Creatinine [Mass/Vol] 1.57 mg/dL High 0.58-0.96 [facility] Comment on above: Order Comment: Speci men Type: BLOOD SPECIMEN Ordering Facility: [facility] Address: [address] [place] [address] Performed By: #### 2 4321-2 #### [facility] CLIA [id number] [address] [place] [address] [place] Creatinine and Glomerular filtration rate.predicted panel (S/P/Bld) 36 mL/min/1.73m??? Low >=60 [facility] Comment on above: Order Comment: [place] Type: BLOOD SPECIMEN Ordering Facility: [facility] Address: [address] [place] [address] Result Comment: Donna mated Glomerular Filtration Rate [...] GFR. Performed By: #### 2 4321-2 #### [facility] CLIA [id number] [address] [place] [address] [place] Glucose [Mass/Vol] 275 mg/dL High 74-99 [facility] Comment on above: Order Comment: [place] Type: BLOOD SPECIMEN Ordering Facility: [facility] Address: [address] [place] [address] Result Comment: The [place] Diabetes Association (ADA) provides guidance for cutoff [...] Standards of Medical Care in Diabetes 2016, [place] [employer]. Diabetes Care. 2016.39(Suppl 1). Performed By: #### 2 4321-2 #### [facility] CLIA [id number] [address] [place] [address] [place] Potassium [Moles/Vol] 5.3 mmol/L High 3.7-5.1 [facility] Comment on above: Order Comment: [place] Type: BLOOD SPECIMEN Ordering Facility: [facility] Address: [address] [place] [address] Performed By: #### 2 4321-2 #### [facility] CLIA [id number] [address] [place] [address] [place] Sodium [Moles/Vol] 134 mmol/L Low 136-144 [facility] Comment on above: Order Comment: Speci men Type: BLOOD SPECIMEN Ordering Facility: [facility] Address: [address] [place] [address] Performed By: #### 2 4321-2 #### [facility] CLIA [id number] [address] [place] [address] [place] Urea nitrogen [Mass/Vol] 26 mg/dL High 7-21 [facility] Comment on above: Order Comment: Speci men Type: BLOOD SPECIMEN Ordering Facility: [facility] Address: [address] [place] [address] Performed By: #### 2 4321-2 #### [facility] CLIA [id number] [address] [place] [address] [place] CBC panel Auto (Bld)on 06-22 Erythrocyte distribution width (RBC) [Ratio] 14.3 % Normal 11.5-15.0 [facility] Comment on above: Order Comment: Speci men Type: BLOOD SPECIMEN Ordering Facility: [facility] Address: [address] [place] [address] Performed By: #### 5 8410-2 #### [facility] CLIA [id number] [address] [place] [address] [place] Hematocrit (Bld) [Volume fraction] 27.8 % Low 36.0-46.0 [facility] Comment on above: Order Comment: Speci men Type: BLOOD SPECIMEN Ordering Facility: [facility] Address: [address] [place] [address] Performed By: #### 5 8410-2 #### [facility] CLIA [id number] [address] [place] [address] [place] Hemoglobin (Bld) [Mass/Vol] 8.9 g/dL Low 11.5-15.5 [facility] Comment on above: Order Comment: Speci men Type: BLOOD SPECIMEN Ordering Facility: [facility] Address: [address] [place] [address] Performed By: #### 5 8410-2 #### [facility] CLIA [id number] [address] [place] [address] [place] MCH (RBC) [Entitic mass] 25.3 pg Low 26.0-34.0 [facility] Comment on above: Order Comment: Speci men Type: BLOOD SPECIMEN Ordering Facility: [facility] Address: [address] [place] [address] Performed By: #### 5 8410-2 #### [facility] CLIA [id number] [address] [place] [address] [place] MCHC (RBC) [Mass/Vol] 32.0 g/dL Normal 30.5-36.0 [facility] Comment on above: Order Comment: Speci men Type: BLOOD SPECIMEN Ordering Facility: [facility] Address: [address] [place] [address] Performed By: #### 5 8410-2 #### [facility] CLIA [id number] [address] [place] [address] [place] MCV (RBC) [Entitic vol] 79.0 fL Low 80.0-100.0 [facility] Comment on above: Order Comment: Speci men Type: BLOOD SPECIMEN Ordering Facility: [facility] Address: [address] [place] [address] Performed By: #### 5 8410-2 #### [facility] CLIA [id number] [address] [place] [address] OF [place] Nucleated RBC (Bld) [#/Vol] 10*3/uL Normal <0.01 [facility] Comment on above: Order Comment: Speci men Type: BLOOD SPECIMEN Ordering Facility: [facility] Address: [address] [place] [address] Performed By: #### 5 8410-2 #### [facility] CLIA [id number] [address] [place] [address] [place] Platelet mean volume (Bld) [Entitic vol] 10.8 fL Normal 9.0-12.7 [facility] Comment on above: Order Comment: Speci men Type: BLOOD SPECIMEN Ordering Facility: [facility] Address: [address] [place] [address] Performed By: #### 5 8410-2 #### [facility] CLIA [id number] [place] [address] [place] Platelets (Bld) [#/Vol] 230 10*3/uL Normal 150-400 [facility] Comment on above: Order Comment: Speci men Type: BLOOD SPECIMEN Ordering Facility: [facility] Address: [address] [place] [address] Performed By: #### 5 8410-2 #### [facility] CLIA [id number] [address] [place] [address] [place] RBC (Bld) [#/Vol] 3.52 10*6/uL Low 3.90-5.20 [facility] Comment on above: Order Comment: Speci men Type: BLOOD SPECIMEN Ordering Facility: [facility] Address: [address] [place] [address] Performed By: #### 5 8410-2 #### [facility] CLIA [id number] [address] [place] [address] [place] WBC (Bld) [#/Vol] 6.04 10*3/uL Normal 3.70-11.00 [facility] Comment on above: Order Comment: Speci men Type: BLOOD SPECIMEN Ordering Facility: [facility] Address: [address] [place] [address] Performed By: #### 5 8410-2 #### [facility] CLIA [id number] [address] [place] [address] [place] NURSING PROGon 06-22-2023 NURSING PROG HNO ID: [id number] Author: Afia Lanier RN Service: Nursing Author Type: Registered Nurse Type: Nursing Progress Note Filed: 06/22/2023 5:56 PM Note Text: Transfer Note: PATIENT NAME: Aislinn Wheeler Patient Location: [place] [address]/ Room: [place] [address] Patient transferred into room/unit pk308 in stable condition. Actions taken: No futher actions taken at this time. Will continue to monitor and check with patient. Normal [facility] NURSING PROG HNO ID: [id number] Author: Linda Nicholson, REY Service: Nursing Author Type: Registered Nurse Type: Nursing Progress Note Filed: 06/22/2023 12:20 PM Note Text: pre-incision juan area noted to have redness and inflamed, prior to prepping and putting chaves in. [facility] NURSING PROG HNO ID: [id number] Author: Elva Joy, RN Service: Nursing Author Type: Registered Nurse [...] OPERATIVE NOon 06-22-2023 OPERATIVE NO HNO ID: [id number] Author: Taurus Ballard MD Service: Urology Author Type: Physician Type: Operative Report Filed: 06/22/2023 1:48 PM Note Text: OPERATIVE/PROCEDURE REPORT LOG ID: [id number] Surgery/Procedure Date: 06/22/2023 Incision/Procedure Start Time: 11:49 AM Incision Close/Procedure End Time: 1:55 PM Surgeon(s)/Proceduralis t(s) and Employee Counselor(s): Surgeon(s) and Role: * Taurus Ballard MD - Primary * Jeet De La Fuente MD - Resident - Assisting Physician Employee Counselor: Camden Rios PA-C; Alicia Harmon PA-C Procedure(s): [...] to the umbilicus a 12 mm assistant professor of music port was placed. At this point the [...] specimen bag out of the supraumbilical assistant professor of music port. This port was closed with a [...] None Drains: 10 flat JUAN drain, 16 Sami Chaves catheter Complications: None Accidental Punctures/Lacerations: None I/primary surgeon/proceduralist performed the procedure with assistance. SIGNATURE: Taurus Ballard MD PATIENT NAME: Aislinn Wheeler DATE: June 22, 2023 TIME: 1:42 PM PAGER/CONTACT #: [facility] SURGICAL PATHOLOGYon 023 CASE REPORT [facility] Comment on above: Order Comment: Speci men Type: BLOOD SPECIMEN Ordering Facility: [facility] Address: [address] [place] [address] Result Comment: Surg [facility] Pathology Report Case: [id number] Authorizing Provider: Taurus Ballard MD Collected: 06/22/2023 01:38 PM Ordering Location: [facility] Received: 06/22/2023 03:16 PM Operating Room Pathologist: Barron Cheema MD Specimen: KIDNEY PARTIAL NEPHRECTOMY LEFT, left renal neoplasm Performed By: #### Kimberlyn FISCHER, 96029-0 #### [facility] CLIA [id number] [place] [address] [place] CLINICAL HISTORY [facility] Comment on above: Order Comment: Speci men Type: BLOOD SPECIMEN Ordering Facility: [facility] Address: [address] [place] [address] Result Comment: Pre- op diagnosis: 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 - 7.2 cm gross greatest dimension of tissue specimen (defer to clinical/imaging for overall lesion size). Performed By: #### Kimberlyn FISCHER, #### [facility] CLIA [id number] [address] [place] [address] FINAL PERFORMING LAB [facility] Comment on above: Order Comment: Speci men Type: BLOOD SPECIMEN Ordering Facility: [facility] Address: [address] [place] [address] Result Comment: Diag nostic interpretation performed at [facility], [address] [address] CLIA# [id number] Finance Teacher: Oswald Munguia M.D. Performed By: #### Kimberlyn FISCHER, 68911-7 #### [facility] CLIA [id number] [address] [place] [address] GROSS DESCRIPTION Normal [facility] Comment on above: Order Comment: Speci men Type: BLOOD SPECIMEN Ordering Facility: [facility] Address: [place] [address] Result Comment: Emre MCGRATH PARTIAL NEPHRECTOMY LEFT Received in formalin designated left renal neoplasm is a segment of chilel-purple membranous tissue which weighs 39 g and measures 7.2 x 5.5 x 3.5 cm. There is cautery present at the margin which is inked orange. The surfaces are smooth with no masses or papillations grossly appreciated. Sectioning does not reveal any masses. Centrifuge Separator Operator sections are submitted in 5 cassettes. 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 Sara Augustine ([phone]) office (endocrinology) regarding clearance for upcoming surgery [...] Sara Dai CNP received and scanned into [employer] to view. Allergies As of Date: 06/12/2023 [...] [Z86*06/06/2023 MVP (mitral valve prolapse) [I34.1] 06/06/2023 IESHA (iron deficiency anemia) [D50.9] 06/06/2023 Chronic pain [...] Locations R1: This test was performed at: [facility], [address] [place] [address], [facility]- , , [facility] Comment on above: Performed By: #### 2 [id number] #### [facility] [address] [place] [address] [facility] AISLINN WHEELER ([id number]) 1960 F Date Time Provider Department 06/09/23 ABOUASSALY, TAURUS URFHR During your visit today, we recorded the following information about you: Derik Fernandez 06/09/2023 3:31 PM Signed Lvm on patient's phone inquiring if she kept her lamination assembler appointment on 06/08 for clearance for her surgery on 06/22 Left message with office of Sara Augustine ([phone]) where patient's appointment was scheduled asking for [...] [Z86*06/06/2023 MVP (mitral valve prolapse) [I34.1] 06/06/2023 IESHA (iron deficiency anemia) [D50.9] 06/06/2023 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] 06/06/2023 Neurogenic bladder [N31.9] 06/06/2023 Stage 3a chronic kidney disease (HCC) [N18.31] 06/06/2023 Type 2 diabetes mellitus with hyperglycemia, wi*06/06/2023 Encounter Status:Closed by DERIK FERNANDEZ on 06/09/23 [facility] Glucose - FINGER STICKon Glucose [Mass/Vol] 436 mg/dL [facility] Other Consent for Procedure/Surger yon 05-22-2023 Consent for Procedure/Surgery [id number]#1.0 0CD:127 Normal [facility] Consent for Treatmenton Consent for Treatment [id number]#1.00C D:127 Normal [facility] Inpatient Patient Summaryon 05-22-2023 Inpatient Patient Summary [place] [id number] Clinical Summary Person Information Name: AISLINN WHEELER Age: 63 Years : 1960 Sex: Female PCP: AGUSTO OLMSTEAD CNP Marital Status: Race: White Ethnicity: Non- or Language: Maori Visit Id: Visit Reason: MIXED URINARY INCONTINENCE Speciality: Acuity: Enc Type: Outpatient Med Service: Surgery Arrival: 05/22/2023 09:41:57 Discharge: Dispo Type: Address: [address] [place] [address] [id number] Provider Notes: Diagnosis: Feeling of incomplete bladder [...] When: Lisa Vern [address], [place] [address] [phone] Business (1) [address], [address], [facility] [address] [place] [phone] Business (1) Comments: Office to schedule follow up in 1 month with PVR Patient Education Information: EU - Cystoscopy with Botox Injection Discharge Instructions (CUSTOM) Normal [facility] IntraOperative Documentson 1 IntraOperative Documents [id number]#1.0 0CD:127 Normal [facility] Main OR Intraoperative Recor don 05-22-2023 Main OR Intraoperative Record IntraOp Document Type FTURO Summary Primary Physician: Lisa Porras MD Finalized Date/Time: 05/22/23 11:29:32 Pt. Name: AISLINN WHEELER D.O.B./Sex: 1960 Female Med Rec #: [id number] Physician: Lisa Porras MD Financial #: [id number] Pt. Type: O Room/Bed: / Admit/Disch: 05/22/23 09:41:57 - Institution: Case Times FTURO Entry 1 Patient Times In Room 05/22/23 11:15:00 Out Room 05/22/23 11:30:00 Procedure Times Start 05/22/23 11:22:00 Stop 05/22/23 11:26:00 Anesthesia Times Last Modified By: Katya LE, Marilee Feldman 05/22/23 11:26:29 General Comments: BOTOX 100 UNITS LOT#: [id number] , EXP DATE: 09/2025 -Jessica BLANCO RN Case Attendance FTURO Entry 1 Entry 2 Entry 3 Case Attendee Vern TAVERAS, Lisa Blanco RN, Marilee Solano CST, Cammie Feldman Role Performed Surgeon - Primary Machine Assistant - Primary Scrub - Primary Time In [...] Out Lisa Porras MD, Verified (If Participants Katya LE, Marilee Applicable) Apryl Feldman, Xiomara HOME HELP AIDE, Cammie Shoemaker Time Out Complete 05/22/23 11:22:00 [...] By: Marilee Blanco RN 05/22/23 11:29 Normal [facility] Main OR Preoperative Recordo n 05-22-2023 Main OR Preoperative Record Holding Area Document Type FTURO Summary Primary Physician: Lisa Porras MD Finalized Date/Time: 05/22/23 10:32:24 Pt. Name: AISLINN WHEELER/Sex: 1960 Female Med Rec #: [id number] Physician: Lisa Porras MD Financial #: [id number] Pt. Type: O Room/Bed: / Admit/Disch: 05/22/23 [...] By: Cammie Mcpherson RN 05/22/23 10:32 Normal [facility] Operative Reporton Operative Report Patient: BARBARA WHEELER Age: 63 years Sex: Female : 1960 Associated Diagnoses: None Author: Lisa Porras MD Procedure Operative Information Details: Date/ Time: 05/22/2023 11:29:00. Pre-Op Dx: Feeling of incomplete bladder emptying (IFI01-IX R39.14, Discharge, Medical), Mixed incontinence (GGM21-JM N39.46, Discharge, Medical), Urinary leakage (WZM07-US R32, Discharge, Medical). Post-Op Dx: Same. Anesthesia [...] to [facility] in the remote past). Normal [facility] Comment on above: Result Comment: Elec tronically Signed By: Lisa Porras MD\.br\Date and Time Signed: 05/22/23 11:30 EDT Outpatient Surgery Discharge Instructionon 05-22-2023 Outpatient Surgery Discharge Instruction [address] [address] Patient Discharge Instructions PERSON INFORMATION [...] Follow up: With: Address: When: Lisa Porras [address] [place] [phone] Business (1) [address], [place] [address], [address] [address] [phone] Business (1) Comments: Office to schedule follow [...] Date You may receive a survey from [employer] asking you to rate your care experience. Your feedback is important and will help us understand what we do well and how we can improve the quality of care we provide to you, your loved ones and our community. It?s an honor to serve you. Thank you for choosing [facility] Normal [facility] Consultation Noteon 05-19-20 Consultation Note [id number]#1.00C D:127 Normal [facility] A1C HEMOGLOBINon 05-18-2023 HbA1c (Bld) [Mass fraction] 14.0 % [facility] Other [facility] 05-18-2023 [facility] AISLINN WHEELER ([id number]) 1960 F Date Time Provider Department 05/18/23 TAURUS BALLARDRaquel During your visit today, we recorded the following information about you: Agusto Faulkner 05/18/2023 1:01 PM Signed Consult notes sent back to Dr. Lisa Porras , phone [phone]. From Dr. Ballard office. Allergies As of [...] - FINGER STICKon Glucose [Mass/Vol] 429 mg/dL [facility] Other HbA1c (Bld) [Mass fraction]o n 05-18-2023 A1C HEMOGLOBIN [employer] Other CNOVon 05-17-2023 CNOV Office Visit (URFHR) AISLINN WHEELER ([id number]) 1960 F Date Time Provider Department 05/17/23 1:10 PM TAURUS BALLARD URR During your visit today, we recorded the following information about you: Temperature Pulse Blood pressure Weight 97.5 degrees 70/minute 172/81 60.1 kg Taurus Ballard MD 05/17/2023 1:35 PM Signed [facility] FOLLOW-UP PATIENT HISTORY AND PHYSICAL [...] 1.92 01/19/[address] scan (outside records) [facility] 09/28/21 IMPRESSION: Since the prior CT [...] Gait normal. Sensation grossly intact. IMPRESSION: Aislinn M Liam is a 63 yr old female with [...] other structures) (more content not included)... Normal [facility] C Urineon 05-13-2023 Bacteria identified Cx [...] Locations R1: This test was performed at: [facility], [address] [place] [address], [facility]- , , [facility] Comment on above: Performed By: #### 2 [id number] #### [facility] [address] [place] [address] Physician Referralon 023 Physician Referral [id number]#1.00CD :127 PATIENT IS SCHEDULED 05/17/2023 [facility] Consultation Noteon 05-04-20 23 Consultation Note [id number]#1.00CD :127 Normal [facility] Insurance Correspondenceon 0 05-04-2023 Insurance Correspondence [id number]#1.00 CD:127 Normal [facility] Urology Office/Clinic Noteon 05-04-2023 Urology [...] mass on Kidney was not cancerous. However tray filler told her she has kidney cancer. Denies [...] PSH lap cholecystectomy, open hysterectomy -Continues with tray filler for CKD3 1. Renal cyst (N28.1: Cyst [...] pt to tertiary center, Dr. Ballard at [facility] for evaluation of robotic left cyst decortication -Pt states tray filler told her she has cancer. 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 Ordered: 47505 Measure Post Void residual urine and/or bladder capacity by US- non-imaging Urnls Dip Stick Auto w/o Microscopy POC 37984 2. Mixed incontinence (N39.46: Mixed incontinence) Pt [...] of Botox. (more content not included)... Normal [facility] Comment on above: Result Comment: Elec tronically Signed By: Vern TAVERAS, Lisa Montiel\.br\Date and Time Signed: 05/04/23 14:11 EDT Ambulatory Visit Summaryon 0 05-03-2023 Ambulatory Visit Summary AISLINN WHEELER :1960 Visit Date:05/03/2023 Ambulatory Visit Instructions Your Diagnosis Renal mass Renal cyst Mixed incontinence Feeling of incomplete bladder emptying Glucosuria Tests Performed Urnls Dip Stick Auto w/o Microscopy POC 34408 Your Care Team Attending Physician - Lisa [...] Following Appointments Follow Up with Vern TAVERAS, EMELINA Hernandez, URO When: Comments: Sched Botox. Where: Medications What How Much When Instructions New cephalexin (Keflex 500 mg Cap) 1 Capsules By Mouth 2 times a day Duration: 3 Days Start one day prior to procedure Pickup at [facility] New estradiol topical (Estrace 0.1 mg/ g Cream) See instructions Refills: 3 apply pea size amount to urethra/ inner vagina 3x/ week x 1 month, then 2x/ week for maintainence Pickup at [facility] Unchanged trospium (trospium 20 mg oral [...] physician if questions or concerns Pharmacy Information [facility]: [address] [place], [place] [id number] [phone] Test Results Urnls Dip Stick Auto w/o Microscopy POC 76187 (05/03/2023) Bilirubin Urine Dipstick - Negative Blood Urine Dipstick - Trace-intact Glucose Urine Dipstick - 3+ 1000 mg/dl Ketones Urine Dipstick - Negative Leukocytes Urine Dipstick - Negative Nitrite Urine Dipstick - Negative Protein Urine Dipstick - Trace Specific [place] Urine Dipstick - 1.015 Urine Appearance Urine [...] are saf (more content not included)... Normal [facility] Patient Educationon 05-03-20 23 Patient Education Obstetrics and Gynecology Kegel [...] provider. Document Revised: 12/16/2021 Document Reviewed: 12/16/2021 [employer] Patient Education ? 2022 [employer] Normal [facility] 05-03-2023 Screens [id number]#1.00 CD:127 Normal [facility] C Urineon 04-20-2023 Bacteria identified Cx Nom [...] Locations R1: This test was performed at: [facility], [address] [place] [address], [address]- , [place], [facility] Comment on above: Performed By: #### 2 400066 ####[facility] [address] [place] [address] Ambulatory Visit Summaryon 0 04-18-2023 Ambulatory Visit [...] Lisa Porras MD Where: [facility] 02-23-2023 Screens [id number] CD:127 [facility] Ambulatory Visit Summaryon 0 02-22-2023 Ambulatory Visit Summary AISLINN WHEELER :1960 Visit Date:02/22/2023 Ambulatory Visit Instructions Your Diagnosis Renal mass Renal cyst Mixed incontinence Feeling of incomplete bladder emptying Glucosuria Tests Performed Urnls Dip Stick Auto w/o Microscopy POC 94261 Your Care Team Attending Physician - Lisa [...] Lisa Porras MD Where: [facility] Patient Educationon 02-23-20 Patient Education Obstetrics [...] provider. Document Revised: 12/16/2021 Document Reviewed: 12/16/2021 [employer] Patient Education ? 2022 [employer]. [facility] Urology Office/Clinic Noteon 02-22-2023 Urology Office/Clinic Note [...] PSH lap cholecystectomy, open hysterectomy -Continues with tray filler after referred last visit 1. Renal mass [...] and the (more content not included)... Normal [facility] Comment on above: Result Comment: Elec tronically Signed By: Lisa Porras MD\.br\Date and Time Signed: 02/22/23 10:14 EDT\.br\Electronically Co-Signed By: Marilee Gray\.br\Date and Time Co-Signed: 02/22/23 09:36 EDT Lab Reportson 02-20-2023 Lab Reports [id number]#1.00C D:127 Normal [facility] RAD - CT Reporton 02-20-2023 RAD - CT Report [id number]#1.00CD :127 Normal [facility] Physician Orderon 02-01-2023 Physician Order [id number]#1.00CD :127 Normal [facility] Consultation Noteon 01-08-20 Consultation Note [id number]#1.00C D:127 Normal [facility] XR FOOT LT MIN 3 VIEWSon XR FOOT LT MIN 3 VIEWS Normal [facility] MG MAMM SCREEN 3D GURJIT CADon 12-28-2022 MG MAMM SCREEN 3D GURJIT CAD Normal [facility] XR DEXA BONE DENSITYon 12-28 XR DEXA BONE DENSITY Normal [facility] NM STRESS/REST MULTIon 12-15 NM STRESS/REST MULTI Normal [facility] XR FOOT LT MIN 3 VIEWSon XR FOOT LT MIN 3 VIEWS Normal [facility] Physician Referralon 023 Physician Referral [id number] D:[id number] Normal [facility] CT FOOT LT WO CONon 10-28-19 CT FOOT LT WO CON Normal [facility] XR FOOT LT MIN 3 VIEWSon XR FOOT LT MIN 3 VIEWS Normal [facility] XR FOOT LT MIN 3 VIEWSon XR FOOT LT MIN 3 VIEWS Normal [facility] XR FOOT LT MIN 3 VIEWSon XR FOOT LT MIN 3 VIEWS Normal [facility] XR FOOT LT MIN 3 VIEWSon XR FOOT LT MIN 3 VIEWS Normal [facility] XR FOOT LT MIN 3 VIEWSon XR FOOT LT MIN 3 VIEWS Normal [facility] [place] KIDNEYSon 09-15-2022 [place] KIDNEYS Normal [facility] XR FOOT LT MIN 3 VIEWSon XR FOOT LT MIN 3 VIEWS Normal [facility] XR FOOT LT MIN 3 VIEWSon XR FOOT LT MIN 3 VIEWS Normal [facility] XR FOOT LT MIN 3 VIEWSon XR FOOT LT MIN 3 VIEWS Normal [facility] CBC AUTO DIFFon 08-03-2022 BASO # 0.0 103/ul Normal 0.0-0.1 [facility] Comment on above: Performed By: #### C BC ####[facility] [address]zve[address] [place] [address]Dr. Ricardo Rocha Basophils/100 WBC (Bld) 0.5 % Normal 0.2-2.0 [facility] Comment on above: Performed By: #### C BC ####[facility] Irdomxtvob[address] [place], [place] [address]DrIrina Rocha EO # 0.1 103/ul Normal 0.0-0.7 [facility] Comment on above: Performed By: #### C BC ####[facility] J[address]cygneqnt[address] [place] [address]DrIrina Rocha Eosinophils/100 WBC (Bld) 1.2 % Normal 0.9-7.0 [facility] Comment on above: Performed By: #### C BC ####[facility] Kavuobyboh[address] [place] [address]DrIrina Rocha Erythrocyte distribution width (RBC) [Ratio] 15.0 % Normal 11.0-15.0 [facility] Comment on above: Performed By: #### C BC ####[facility] Uriveffcmn70[address] [place] [address]DrIrina Rocha Hematocrit (Bld) [Volume fraction] 29.5 % Critically low 36.0-48.0 [facility] Comment on above: Performed By: #### C BC ####[facility] Xspbappmwv7[address] [place] [address]DrIrina Rocha Hemoglobin (Bld) [Mass/Vol] 9.3 g/dL Critically low 12.0-16.0 [facility] Comment on above: Performed By: #### C BC ####[place] Sslkafhtwn12[address] [place] [address]DrIrina Rocha IG # 0.04 10e3/ul Critically high 0.00-0.03 [facility] Comment on above: Performed By: #### C BC ####[place] Hkjefrobop[address] [place], [place] [address]DrIrina Rocha IG % 0.5 % Normal 0.0-0.5 [facility] Comment on above: Performed By: #### C BC ####[facility] Xyqzjvdpsy78[address] [place], [place] [address]DrIrina Rocha LYMPH # 1.4 103/ul Normal 1.2-3.8 [facility] Comment on above: Performed By: #### C BC ####[facility] Vznvlchofo[address] [place], [place] [address]DrIrina Rocha Lymphocytes/100 WBC (Bld) 17.2 % Critically low 20.5-60.0 [facility] Comment on above: Performed By: #### C BC ####[place] Nafmvikdli85[address] [place], [place] [address]DrIrina Rocha MANUAL DIFF REQ NO Normal [facility] Comment on above: Performed By: #### C BC ####[facility] Kiducxeqax4601[address] [place], [place] [address]DrIrina Rocha MCH (RBC) [Entitic mass] 25.2 pg Critically low 26.7-34.0 [facility] Comment on above: Performed By: #### C BC ####[place] Barrrchemx62[address] [place], [place] [address]DrIrina Rocha MCHC (RBC) [Mass/Vol] 31.5 g/dL Normal 29.9-35.2 [facility] Comment on above: Performed By: #### C BC ####[place] Jyndzrnvmu9[address] [place] [address]DrIrina Rocha MCV (RBC) [Entitic vol] 79.9 fL Critically low 81.0-99.0 [facility] Comment on above: Performed By: #### C BC ####[place] Rxxhnaqfyi[address] [place], [place] [address]DrIrina Rocha MONO # 0.6 103/ul Normal 0.3-0.8 [facility] Comment on above: Performed By: #### C BC ####[place] Rbfvezfyib[address] [place], [place] [address]DrIrina Rocha Monocytes/100 WBC (Bld) 7.6 % Normal 1.7-12.0 [facility] Comment on above: Performed By: #### C BC ####[place] Dqzzyhefdx964[address] [place], [place] [address]DrIrina Rocha NEUT # 5.9 103/ul Normal 1.4-6.5 [facility] Comment on above: Performed By: #### C BC ####[place] Mejbtnfoqc[address] [place], [place] [address]DrIrina Rocha Neutrophils/100 WBC (Bld) 73.0 % Normal 43.0-75.0 [facility] Comment on above: Performed By: #### C BC ####[place] Mpkcuvatic47[address] [place], [place] [address]DrIrina Rocha Platelet mean volume (Bld) [Entitic vol] 11.4 fL Normal 9.5-13.5 [facility] Comment on above: Performed By: #### C BC ####[place] Vxhznwcuzc[address] [place], [place] [address]DrIrina Rocha PLT 253 103/ul Normal 150-450 [facility] Comment on above: Performed By: #### C BC ####[place] Cpilkucmle[address] [place], [place] [address]DrIrina Rocha RBC 3.69 106/ul Critically low 4.20-5.40 [facility] Comment on above: Performed By: #### C BC ####[place] Ipcgyypxmf[address] [place], [place] [address]Dr. Ricardo Rocha WBC 8.0 103/ul Normal 4.0-11.0 [facility] Comment on above: Performed By: #### C BC ####[place] Eqdllycyxo8218[address] [place], [place] [address]Dr. Ricardo Rocha CRPon 08-03-2022 CRP 3.1 mg/dL Critically high <=1.0 [facility] Comment on above: Performed By: #### C RP, BMP, URIC ####[place] Aiotdcgfac[address] [place], [place] [address]Dr. Ricardo Rocha CULTURE BLOODon 08-03-2022 Microscopic examination of blood, culture Culture Observations: NO GROWTH AT 5 DAYS. Normal [facility] Comment on above: Performed By: #### B LDCX2 ####[place] Drqyuesbju509[address] [place], [place] [address]Dr. Nanomarcial Aj Microscopic examination of blood, culture Culture Observations: NO GROWTH AT 5 DAYS. Normal [facility] Comment on above: Performed By: #### B LDCX1 ####[place] Grbmffopkj5[address] [place], [place] [address]Dr. Ricardo Rocha ER URINE PROFILEon 2 Bilirubin Ql (U) Negative Normal NEGATIVE [facility] Comment on above: Performed By: #### E RUR ####[place] Idqrltsjyt[address] [place], [place] [address]Dr. Ricardo Rocha Clarity (U) CLEAR Normal CLEAR [facility] Comment on above: Performed By: #### E RUR ####[place] Lqcnanucei7[address] [place], [place] [address]Dr. Ricardo Rocha Color (U) LT. YELLOW Normal YELLOW [facility] Comment on above: Performed By: #### E RUR ####[place] Pyjkpowmti504[address] [place], [place] [address]Dr. Ricardo Rocha ERUAHD A micrscopic examination will be performed if indicated. Normal [facility] Comment on above: Performed By: #### E RUR ####[place] Gsxvarjfjt[address] [place] [address]Dr. Ricardo Rocha Glucose Ql (U) 100 mg/dl Abnormal NEGATIVE [facility] Comment on above: Performed By: #### E RUR ####[place] Ppeenmespm[address] [place], [place] [address]Dr. Ricardo Rocha Hemoglobin Ql (U) Negative Normal NEGATIVE [facility] Comment on above: Performed By: #### E RUR ####[place] Mtbhudestd64[address] [place], [place] [address]Dr. Ricardo Rocha Ketones Ql (U) Negative Normal NEGATIVE [facility] Comment on above: Performed By: #### E RUR ####[place] Ydlopwmqeu9460[address] [place], [place] [address]Dr. Ricardo Orcha LEUKOCYTES Negative Normal NEGATIVE [facility] Comment on above: Performed By: #### E RUR ####[place] Sjixixtkhx[address] [place], [place] [address]Dr. Ricardo Rocha Nitrite Ql (U) Negative Normal NEGATIVE [facility] Comment on above: Performed By: #### E RUR ####[place] Zlducrhajs024[address] [place], [place] [address]Dr. Ricardo Rocha pH (U) 6.0 [pH] Normal 5-9 [facility] Comment on above: Performed By: #### E RUR ####[place] Krhsfbkrdo23[address] [place], [place] [address]Dr. Ricardo Rocha SPEC GRAVITY 1.010 Normal 1.005-<=1.02 5 [facility] Comment on above: Performed By: #### E RUR ####[place] Kvcclnaous[address] [place], [place] [address]Dr. Ricardo Aj UA PROTEIN Negative Normal NEGATIVE/ TRACE [facility] Comment on above: Performed By: #### E RUR ####[place] Dgicdtgeps[address] [place], [place] [address]Dr. Nanomarcial Aj UR MICRO IND NOT INDICATED Normal [facility] Comment on above: Performed By: #### E RUR ####[place] [address]fseozv[address] [place] [address]Dr. Ricardo Rocha Urobilinogen Qn (U) 0.2 {Madeleine'U}/dL Normal 0.2 - 1. 0 [facility] Comment on above: Performed By: #### E RUR ####[place] Zftvxfrvbo04[address] [place] [address]Dr. Ricardo Rocha LACTATE/LACTIC ACIDon 2021 Lactate [Moles/Vol] 0.5 mmol/L Normal 0.4-1.9 [facility] Comment on above: Performed By: #### L ACT ####[place] Xmqrkyavqb[address] [place], [place] [address]Dr. Ricardo Rocha PROF CHEM 8 (BAS METB)on Anion gap [Moles/Vol] 12.9 mmol/L Normal [facility] Comment on above: Performed By: #### C RP, BMP, URIC ####[place] Lavuswbjxz[address] [place] [address]Dr. Ricardo Rocha Calcium [Mass/Vol] 9.0 mg/dL Normal 8.5-10.1 [facility] Comment on above: Performed By: #### C RP, BMP, URIC ####[place] Ibggypausf[address] [place] [address]Dr. Ricardo Rocha Chloride [Moles/Vol] 102 mmol/L Normal 98-107 [facility] Comment on above: Performed By: #### C RP, BMP, URIC ####[place] Amzruzoheo[address] [place] [address]Dr. Ricardo Rocha CO2 [Moles/Vol] 23.9 mmol/L Normal 21.0-32.0 [facility] Comment on above: Performed By: #### C RP, BMP, URIC ####[place] Xaioaucmhy[address] [place] [address]Dr. Ricardo Rocha Creatinine [Mass/Vol] 1.36 mg/dL Critically high 0.55-1.02 [facility] Comment on above: Performed By: #### C RP, BMP, URIC ####[place] B[address]nrbnpp[address] [place] [address]Dr. Ricardo Rocha EGFR-AF MOSOTHO 47 mL/min/1.73m2 Critically low >=60 [facility] Comment on above: Performed By: #### C RP, BMP, URIC ####[place] Qzontjdhhx6[address] [place] [address]Dr. Ricardo Rocha EGFR-NON AF MOSOTHO 39 mL/min/1.73m2 Critically low >=60 [facility] Comment on above: Performed By: #### C RP, BMP, URIC ####[place] Fliioxituq6[address] [place] [address]Dr. Ricardo Rocha Glucose [Mass/Vol] 125 mg/dL Critically high 74-106 T [facility] Comment on above: Performed By: #### C RP, BMP, URIC ####[place] Mjlilytgge299[address] [place], [place] [address]Dr. Ricardo Rocha Potassium [Moles/Vol] 4.8 mmol/L Normal 3.5-5.1 [facility] Comment on above: Performed By: #### C RP, BMP, URIC ####[place] Njgsksvgfh265[address] [place], [place] [address]Dr. Ricardo Rocha Sodium [Moles/Vol] 134 mmol/L Critically low 136-145 [facility] Comment on above: Performed By: #### C RP, BMP, URIC ####[place] Hjmghohiil[address] [place], [place] [address]Dr. Ricardo Rocha Urea nitrogen [Mass/Vol] 22.0 mg/dL Critically high 7.0-18.0 [facility] Comment on above: Performed By: #### C RP, BMP, URIC ####[place] Mrpqaoeekz65[address] [place], [place] [address]Dr. Ricardo Rocha Urea nitrogen/Creatinine [Mass ratio] 16.2 mg/mg Normal [facility] Comment on above: Performed By: #### C RP, BMP, URIC ####[place] Qjzzlqbwre20[address] [place] [address]DrIrina Rocha SED RATE WESTERGRENon 2021 SED RATE 95 mm/hr Critically high <=30 [facility] Comment on above: Performed By: #### S EDR ####[place] Zespmydvmy[address] [place], [place] [address]Dr. Ricardo Aj URIC ACID SERUMon 08-03-2022 Urate [Mass/Vol] 4.7 mg/dL Normal 2.6-6.0 [facility] Comment on above: Performed By: #### C RP, BMP, URIC ####[place] Bsfwevzwkm[address] [place], [place] [address]Dr. Ricardo Rocha XR FOOT LT MIN 3 VIEWSon XR FOOT LT MIN 3 VIEWS Normal [facility] PROF CHEM 8 (BAS METB)on Anion gap [Moles/Vol] 13.8 mmol/L Normal [facility] Comment on above: Performed By: #### B MP ####[place] Vfvlqdrypx[address] [place], [place] [address]Dr. Ricardo Rocha Calcium [Mass/Vol] 8.9 mg/dL Normal 8.5-10.1 [facility] Comment on above: Performed By: #### B MP ####[place] Xyajzoityg86[address] [place], [place] [address]Dr. Ricardo Rocha Chloride [Moles/Vol] 101 mmol/L Normal 98-107 [facility] Comment on above: Performed By: #### B MP ####[place] Qkmkintzlx8714[address] [place], [place] [address]Dr. Ricardo Rocha CO2 [Moles/Vol] 22.8 mmol/L Normal 21.0-32.0 [facility] Comment on above: Performed By: #### B MP ####[place] Dwrvpemjjf24[address] [place], [place] [address]Dr. Ricardo Rocha Creatinine [Mass/Vol] 1.43 mg/dL Critically high 0.55-1.02 [facility] Comment on above: Performed By: #### B MP ####[place] Nszfwehbwq[address] [place], [place] [address]Dr. Ricardo Rocha EGFR-AF MOSOTHO 45 mL/min/1.73m2 Critically low >=60 [facility] Comment on above: Performed By: #### B MP ####[place] Wiwpfhlnkd[address] [place] [address]Dr. Ricardo Rocha EGFR-NON AF MOSOTHO 37 mL/min/1.73m2 Critically low >=60 [facility] Comment on above: Performed By: #### B MP ####[place] Jwpysrtfpr7[address] [place] [address]Dr. Ricardo Rocha Glucose [Mass/Vol] 279 mg/dL Critically high 74-106 T [facility] Comment on above: Performed By: #### B MP ####[place] Tknxlihzbg489[address] [place], [place] [address]Dr. Nanomarcial Aj Potassium [Moles/Vol] 4.6 mmol/L Normal 3.5-5.1 [facility] Comment on above: Performed By: #### B MP ####[place] Qrphojntra045[address] [place], [place] [address]Dr. Ricardo Aj Sodium [Moles/Vol] 133 mmol/L Critically low 136-145 [facility] Comment on above: Performed By: #### B MP ####[place] Rthwdwuzyw8935[address] [place], [place] [address]Dr. Ricardo Aj Urea nitrogen [Mass/Vol] 24.0 mg/dL Critically high 7.0-18.0 [facility] Comment on above: Performed By: #### B MP ####[place] Ztyongolca13[address] [place] [address]Dr. Ricardo Aj Urea nitrogen/Creatinine [Mass ratio] 16.8 mg/mg Normal [facility] Comment on above: Performed By: #### B MP ####[place] Uslgkyfvmo[address] [place], [place] [address]Dr. Ricardo Aj ACID FAST SMEAR AND CXon Acid Fast Culture Negative Normal [facility] Comment on above: Result Comment: No a amilcar fast bacilli isolated after 6 weeks. Performed By: #### A FB ####[place] Pcjxnkfavg[address] [place], [place] [address]Dr. Ricardo Rocha Acid Fast Smear Negative Normal [facility] Comment on above: Performed By: #### A FB ####[place] Siunceiiaz8[address] [place] [address]Dr. Ricardo Rocha [employer] Specimen Processing Direct Inoculation Normal [facility] Comment on above: Performed By: #### A FB ####[place] Gipwzfrxuv89[address] [place], [place] [address]Dr. Ricardo Rohca [employer] Specimen Processing Tissue Grinding Normal [facility] Comment on above: Performed By: #### A FB ####[place] Fdltvsmxfu1625[address] [place], [place] [address]Dr. Ricardo Rocha FUNGAL CULTUREon 07-11-2022 Fungus (Mycology) Culture Final report [facility] Comment on above: Performed By: #### C XFUN ####[place] Xissajresb[address] [place], [place] [address]Dr. Ricardo Rocha Fungus Stain Final report Normal [facility] Comment on above: Performed By: #### C XFUN ####[place] Wsjeirjkjo[address] [place], [place] [address]Dr. Ricardo Rocha Result 1 Comment Normal [facility] Comment on above: Result Comment: AAUYSH/ Calcofluor preparation: no fungus observed. Performed By: #### C XFUN ####[place] Geawyvhjsl[address] [place], [place] [address]Dr. Ricardo Rocha Result Comment: No y east or mold isolated after 4 weeks. PROF CHEM 8 (BAS METB)on Anion gap [Moles/Vol] 15.1 mmol/L Normal [facility] Comment on above: Performed By: #### B MP ####[place] Vrgkzqrvaj225[address] [place], [place] [address]Dr. Ricardo Rocha Calcium [Mass/Vol] 9.0 mg/dL Normal 8.5-10.1 [facility] Comment on above: Performed By: #### B MP ####[place] Xhvigunbci36[address] [place], [place] [address]Dr. Ricardo Rocha Chloride [Moles/Vol] 101 mmol/L Normal 98-107 [facility] Comment on above: Performed By: #### B MP ####[place] Grzqraooku20[address] [place] [address]Dr. Ricardo Rocha CO2 [Moles/Vol] 18.5 mmol/L Critically low 21.0-32.0 [facility] Comment on above: Performed By: #### B MP ####[place] Foxusqsdko01[address] [place], [place] [address]Dr. Ricardo Rocha Creatinine [Mass/Vol] 2.05 mg/dL Critically high 0.55-1.02 [facility] Comment on above: Performed By: #### B MP ####[place] Ufrvywjmou4624[address] [place], [place] [address]Dr. Ricardo Rocha EGFR-AF MOSOTHO 30 mL/min/1.73m2 Critically low >=60 [facility] Comment on above: Performed By: #### B MP ####[place] Avqurstxmm8417[address] [place], [place] [address]Dr. Ricardo Rocha EGFR-NON AF MOSOTHO 24 mL/min/1.73m2 Critically low >=60 [facility] Comment on above: Performed By: #### B MP ####[place] Eqegwfuccz909[address] [place], [place] [address]Dr. Ricardo Rocha Glucose [Mass/Vol] 134 mg/dL Critically high 74-106 [facility] Comment on above: Performed By: #### B MP ####[place] Dwdkrtnamn728[address] [place], [place] [address]Dr. Ricardo Rocha Potassium [Moles/Vol] 5.6 mmol/L Critically high 3.5-5.1 [facility] Comment on above: Performed By: #### B MP ####[place] Xtoiuosghk[address] [place], [place] [address]Dr. Ricardo Rocha Sodium [Moles/Vol] 129 mmol/L Critically low 136-145 [facility] Comment on above: Performed By: #### B MP ####[place] Jvnztkwynd0[address] [place], [place] [address]Dr. Ricardo Rocha Urea nitrogen [Mass/Vol] 57.0 mg/dL Critically high 7.0-18.0 [facility] Comment on above: Performed By: #### B MP ####[place] Yqdwuvaeuv[address] [place], [place] [address]Dr. Nanomarcial Aj Urea nitrogen/Creatinine [Mass ratio] 27.8 mg/mg Normal [facility] Comment on above: Performed By: #### B MP ####[place] Ghbgbapork45[address] [place], [place] [address]Dr. Ricardo Rocha CBC AUTO DIFFon 07-06-2022 BASO # 0.0 103/ul Normal 0.0-0.1 [facility] Comment on above: Performed By: #### C BC ####[place] Aadxincnlt212[address] [place], [place] [address]Dr. Ricardo Rocha Basophils/100 WBC (Bld) 0.6 % Normal 0.2-2.0 [facility] Comment on above: Performed By: #### C BC ####[place] Wscwdhnxzh[address] [place], [place] [address]Dr. Ricardo Rocha EO # 0.1 103/ul Normal 0.0-0.7 [facility] Comment on above: Performed By: #### C BC ####[place] Iplmyoxcyn95[address] [place], [place] [address]Dr. Ricardo Rocha Eosinophils/100 WBC (Bld) 1.7 % Normal 0.9-7.0 [facility] Comment on above: Performed By: #### C BC ####[place] Xeigixzitt8[address] [place], [place] [address]Dr. Ricardo Rocha Erythrocyte distribution width (RBC) [Ratio] 15.2 % Critically high 11.0-15.0 [facility] Comment on above: Performed By: #### C BC ####[place] Ynbznkadia995[address] [place], [place] [address]Dr. Ricardo Rocha Hematocrit (Bld) [Volume fraction] 34.6 % Critically low 36.0-48.0 [facility] Comment on above: Performed By: #### C BC ####[place] Ritzhghlnq[address] [place], [place] [address]Dr. Nanomarcial Rocha Hemoglobin (Bld) [Mass/Vol] 10.5 g/dL Critically low 12.0-16.0 [facility] Comment on above: Performed By: #### C BC ####[place] Mvrsvleahh[address] [place] [address]Dr. Nanomarcial Rocha IG # 0.01 10e3/ul Normal 0.00-0.03 [facility] Comment on above: Performed By: #### C BC ####[place] Ygdabedfrr8[address] [place] [address]Dr. Ricardo Rocha IG % 0.2 % Normal 0.0-0.5 [facility] Comment on above: Performed By: #### C BC ####[place] Dapjhtbkbq[address] [place], [place] [address]Dr. Ricardo Rocha LYMPH # 2.4 103/ul Normal 1.2-3.8 [facility] Comment on above: Performed By: #### C BC ####[place] Bwsvzrafuw[address] [place], [place] [address]Dr. Ricardo Rocha Lymphocytes/100 WBC (Bld) 44.4 % Normal 20.5-60.0 [facility] Comment on above: Performed By: #### C BC ####[place] Kgtolivgmf62[address] [place], [place] [address]Dr. Nanomarcial Rocha MANUAL DIFF REQ NO Normal [facility] Comment on above: Performed By: #### C BC ####[place] Ckpvniqcsn98[address] [place] [address]Dr. Ricardo Aj MCH (RBC) [Entitic mass] 25.0 pg Critically low 26.7-34.0 [facility] Comment on above: Performed By: #### C BC ####[place] Oweozktdlp[address] [place], [place] [address]Dr. Ricardo Aj MCHC (RBC) [Mass/Vol] 30.3 g/dL Normal 29.9-35.2 [facility] Comment on above: Performed By: #### C BC ####[place] Fsreokxkuq50[address] [place], [place] [address]Dr. Ricardo Aj MCV (RBC) [Entitic vol] 82.4 fL Normal 81.0-99.0 [facility] Comment on above: Performed By: #### C BC ####[place] Oygcjlbzum[address] [place] [address]Dr. Ricardo Rocha MONO # 0.3 103/ul Normal 0.3-0.8 [facility] Comment on above: Performed By: #### C BC ####[place] Ocvfljbzcu[address] [place], [place] [address]Dr. Ricardo Aj Monocytes/100 WBC (Bld) 5.1 % Normal 1.7-12.0 [facility] Comment on above: Performed By: #### C BC ####[place] Dmclxhtouv86[address] [place], [place] [address]Dr. Ricardo Rocha NEUT # 2.5 103/ul Normal 1.4-6.5 [facility] Comment on above: Performed By: #### C BC ####[place] Bnqbxzedut[address] [place], [place] [address]Dr. Nanomarcial Rocha Neutrophils/100 WBC (Bld) 48.0 % Normal 43.0-75.0 [facility] Comment on above: Performed By: #### C BC ####[place] Igjcuysesl[address] [place], [place] [address]Dr. Ricardo Aj Platelet mean volume (Bld) [Entitic vol] 10.7 fL Normal 9.5-13.5 [facility] Comment on above: Performed By: #### C BC ####[place] Rviushkzyk[address] [place], [place] [address]Dr. Nanomarcial Aj PLT 261 103/ul Normal 150-450 [facility] Comment on above: Performed By: #### C BC ####[place] Lnqxernezi[address] [place], [place] [address]Dr. Ricardo Rocha RBC 4.20 106/ul Normal 4.20-5.40 [facility] Comment on above: Performed By: #### C BC ####[place] Ybuusrvhwb[address] [place], [place] [address]Dr. Ricardo Rocha WBC 5.3 103/ul Normal 4.0-11.0 [facility] Comment on above: Performed By: #### C BC ####[place] V[address]auoccase[address] [place] [id number]. Ricardo Rocha GLYCOHEMOGLOBIN A1Con 2021 ADA RECOMMENDATION SEE BELOW Normal [facility] Comment on above: Result Comment: ADA RECOMMENDED LIMIT 4.0 - 6.0 ADA THERAPEUTIC TARGET < 7.0 ACTION SUGGESTED > 7.0 Performed By: #### A 1C ####[place] Fusqzdfsok[address] [place], [place] [address]Pk. Rciardo Rocha Glucose [Mass/Vol] 289 mg/dL Normal [facility] Comment on above: Performed By: #### A 1C ####[place] Aipsrqqrmr[address] [place] [id number]. Ricardo Rocha HbA1c (Bld) [Mass fraction] 11.7 % Critically high 4.5-6.2 [facility] Comment on above: Performed By: #### A 1C ####[place] Yxnoyoayap26[address] [place] [address]Dr. Ricardo Rocha LIPID PROFILEon 07-06-2022 CHOL-HDL RATIO NORM SEE BELOW Normal [facility] Comment on above: Result Comment: 3.3 - 4.4 LOW RISK 4.4 - 7.1 AVERAGE RISK 7.1 - 11.0 MODERATE RISK >11.0 HIGH RISK Performed By: #### T SH, CMP, LIPID ####[place] Yxeiowtkay72[address] [place] [id number]. Ricardo Rocha Cholesterol [Mass/Vol] 284 mg/dL Critically high <=200 [facility] Comment on above: Performed By: #### T SH, CMP, LIPID ####[place] Cfqnynaepd28[address] [place] [address]Dr. Ricardo Rocha Cholesterol in HDL [Mass/Vol] 40 mg/dL Normal 40-60 [facility] Comment on above: Performed By: #### T SH, CMP, LIPID ####[facility] Zlowjbdcsb0795 [place] [phone]. Ricardo Rocha Cholesterol in LDL [Mass/Vol] 167.8 mg/dL Normal [facility] Comment on above: Performed By: #### T SH, CMP, LIPID ####[facility] Nylcjfqgtk3765 [place] [address]Dr. Ricardo Rocha Cholesterol.total/Ch olesterol in HDL [Mass ratio] 7.1 {ratio} Normal [facility] Comment on above: Performed By: #### T SH, CMP, LIPID ####[facility] Rbdooppamg34[address] [place] [id number]. Ricardo Rocha HDL NORMAL > or = 60 mg/dl - LO W CARDIOVASCULAR RISK <40 mg/dl - HIGH CARDIOVASCULAR RISK Normal [facility] Comment on above: Performed By: #### T SH, CMP, LIPID ####[facility] [address]pnfpnimx[address] [place] [address]Dr. Ricardo Rocha LDL CALC NORMAL SEE BELOW Normal [facility] Comment on above: Result Comment: <100 mg/dl OPTIMAL 100 - 129 mg/dl NEAR OR ABOVE OPTIMAL 130 - 159 mg/dl BORDERLINE HIGH 160 - 189 mg/dl HIGH >190 mg/dl VERY HIGH Performed By: #### T SH, CMP, LIPID ####[facility] Swfzpdszyc[address] [place] [address]Dr. Ricardo Rocha Triglyceride [Mass/Vol] 381 mg/dL Critically high <=150 [facility] Comment on above: Performed By: #### T SH, CMP, LIPID ####[facility] [address]ovun[address] [place] [id number]. Ricardo Rocha VLDL CALC 76.2 mg/dL Normal [facility] Comment on above: Performed By: #### T SH, CMP, LIPID ####[facility] Qkpxpddljk35[address] [place] [id number]. Ricardo Rocha MICROALBUMIN, RAND URon 06-21 mALB <1.3 Normal <=30.0 [facility] Comment on above: Performed By: #### M ALBR ####[facility] Vboqsgnypy[address] [place] [phone]. Ricardo Rocha PROF 14(COMP METB)on 022 Albumin [Mass/Vol] 3.3 g/dL Critically low 3.4-5.0 [facility] Comment on above: Performed By: #### T SH, CMP, LIPID ####[facility] Xmowfvrchm[address] [place] [address]Dr. Ricardo Rocha Albumin/Globulin [Mass ratio] 0.5 {ratio} Normal [facility] Comment on above: Performed By: #### T SH, CMP, LIPID ####[facility] Wokcqgagla[address] [place] [address]Dr. Ricardo Rocha ALP [Catalytic activity/Vol] 129 U/L Critically high 46-116 [facility] Comment on above: Performed By: #### T ANTONIA, CMP, LIPID ####[facility] Thjaovxnth[address] [place] [address]Dr. Ricardo Rocha ALT [Catalytic activity/Vol] 22 U/L Normal 14-59 [facility] Comment on above: Performed By: #### T ANTONIA, CMP, LIPID ####[facility] Arrzgsupko45[address] [place] [address]Dr. Ricardo Rocha Anion gap [Moles/Vol] 16.1 mmol/L Normal [facility] Comment on above: Performed By: #### T ANTONIA, CMP, LIPID ####[facility] Clgrukhjsl[address] [place] [address]Dr. Ricardo Rocha AST [Catalytic activity/Vol] 22 U/L Normal 15-37 [facility] Comment on above: Performed By: #### T ANTONIA, CMP, LIPID ####[facility] Kturhngswn[address] [place] [address]Dr. Ricardo Rocha Bilirubin [Mass/Vol] 0.2 mg/dL Normal 0.2-1.0 [facility] Comment on above: Performed By: #### T ANTONIA, CMP, LIPID ####[facility] Jdfnnrdjkt[address] [place] [address]Dr. Ricardo Rocha Calcium [Mass/Vol] 9.4 mg/dL Normal 8.5-10.1 [facility] Comment on above: Performed By: #### T SH, CMP, LIPID ####[facility] Acxwyqazyl0132 [place] [phone]. Ricardo Rocha Chloride [Moles/Vol] 102 mmol/L Normal 98-107 [facility] Comment on above: Performed By: #### T SH, CMP, LIPID ####[facility] Ruyctknzhe026[address] [place] [address]Dr. Ricardo Rocha CO2 [Moles/Vol] 18.4 mmol/L Critically low 21.0-32.0 [facility] Comment on above: Performed By: #### T SH, CMP, LIPID ####[facility] Jvjenmsunk[address] [place] [address]Dr. Ricardo Rocha Creatinine [Mass/Vol] 2.01 mg/dL Critically high 0.55-1.02 [facility] Comment on above: Performed By: #### T SH, CMP, LIPID ####[facility] Iijwrtyckh[address] [place] [address]Dr. Ricardo Rocha EGFR-AF MOSOTHO 30 mL/min/1.73m2 Critically low >=60 [facility] Comment on above: Performed By: #### T SH, CMP, LIPID ####[facility] Mkyhmcuvje5[address] [place] [address]Dr. Ricardo Rocha EGFR-NON AF MOSOTHO 25 mL/min/1.73m2 Critically low >=60 [facility] Comment on above: Performed By: #### T SH, CMP, LIPID ####[facility] Ovamzaczll59[address] [place] [address]Dr. Ricardo Rocha Globulin (S) [Mass/Vol] 6.3 g/dL Normal [facility] Comment on above: Performed By: #### T SH, CMP, LIPID ####[facility] Zasjqaqkxj4788 [place] [address]Dr. Ricardo Rocha Glucose [Mass/Vol] 118 mg/dL Critically high 74-106 [facility] Comment on above: Performed By: #### T SH, CMP, LIPID ####[facility] Rxumfbjopg8549 [place] [address]Dr. Ricardo Rocha Potassium [Moles/Vol] 5.5 mmol/L Critically high 3.5-5.1 [facility] Comment on above: Performed By: #### T ANTONIA, CMP, LIPID ####[facility] Jqjffjsgqa026[address] [place] [address]Dr. Ricardo Rocha Protein [Mass/Vol] 9.6 g/dL Critically high 6.4-8.2 [facility] Comment on above: Performed By: #### T ANTONIA, CMP, LIPID ####[facility] Hucmyvneft67[address] [place] [address]Dr. Ricardo Rocha Sodium [Moles/Vol] 131 mmol/L Critically low 136-145 [facility] Comment on above: Performed By: #### T ANTONIA, CMP, LIPID ####[facility] Zyevbaotad35[address] [place] [address]Dr. Ricardo Rocha Urea nitrogen [Mass/Vol] 45.0 mg/dL Critically high 7.0-18.0 [facility] Comment on above: Performed By: #### T ANTONIA, CMP, LIPID ####[facility] Mcpiqfrgzo[address] [place], [place] [address]Dr. Ricardo Rocha Urea nitrogen/Creatinine [Mass ratio] 22.4 mg/mg Normal [facility] Comment on above: Performed By: #### T ANTONIA, CMP, LIPID ####[facility] Knfuewenjb[address] [place], [place] [address]Dr. Ricardo Rocha TSHon 07-06-2022 TSH 1.178 uIU/mL Normal 0.358-3.740 [facility] Comment on above: Performed By: #### T SH, CMP, LIPID ####[facility] Quwywmrfnc46[address] [place] [address]Dr. Ricardo Aj UA RANDOM W/MICROSCOPICon BACTERIA NONE SEEN Normal NONE SEEN [facility] Comment on above: Performed By: #### U AMIC ####[facility] Cylcnftqqd[address] [place] [address]Dr. Ricardo Rocha Bilirubin Ql (U) Negative Normal NEGATIVE [facility] Comment on above: Performed By: #### U AMIC ####[facility] Jcairomzph[address] [place] [phone]. Ricardo Rocha CAST NONE SEEN Normal NONE SEEN [facility] Comment on above: Performed By: #### U AMIC ####[facility] Ukrlqgfjpw33[address] [place] [address]Dr. Ricardo Rocha Clarity (U) CLEAR Normal CLEAR [facility] Comment on above: Performed By: #### U AMIC ####[facility] Quqvowerfb230[address] [place] [phone]. Ricardo Rocha Color (U) LT. YELLOW Normal YELLOW [facility] Comment on above: Performed By: #### U AMIC ####[facility] Jugwnotvsh5[address] [place] [address]Dr. Ricardo Rocha Crystals LM Nom (Urine sed) NONE SEEN Normal NONE SEEN [facility] Comment on above: Performed By: #### U AMIC ####[facility] Eqotyspqus022[address] [place] [address]Dr. Ricardo Rocha Epithelial cells LM Ql (Urine sed) NONE SEEN Normal NONE SEEN /RARE [facility] Comment on above: Performed By: #### U AMIC ####[facility] Ckdssrzeey[address] [place], [place] [address]Dr. Ricardo Rocha Glucose Ql (U) Negative Normal NEGATIVE [facility] Comment on above: Performed By: #### U AMIC ####[facility] Qlgccqhzoo5[address] [place] [address]Dr. Ricardo Rocha Hemoglobin Ql (U) Negative Normal NEGATIVE [facility] Comment on above: Performed By: #### U AMIC ####[facility] Lrffdeledy9775 [place] [address]Dr. Ricardo Rocha Ketones Ql (U) Negative Normal NEGATIVE [facility] Comment on above: Performed By: #### U AMIC ####[facility] Jgdzxvmadt[address] [place], [place] [address]Dr. Ricardo Rocha LEUKOCYTES Negative Normal NEGATIVE [facility] Comment on above: Performed By: #### U AMIC ####[facility] Pivbzqancs[address] [place], [place] [address]Dr. Yilan Rocha MUCOUS NONE SEEN Normal NONE SEEN [facility] Comment on above: Performed By: #### U AMIC ####[facility] Kepxbzaczx5[address] [place] [address]Dr. Ricardo Rocha Nitrite Ql (U) Negative Normal NEGATIVE [facility] Comment on above: Performed By: #### U AMIC ####[facility] Trbsyclopy[address] [place] [address]Dr. Ricardo Rocha pH (U) 5.5 [pH] Normal 5-9 [facility] Comment on above: Performed By: #### U AMIC ####[facility] Ckdzlacjoh6[address] [place] [address]Dr. Ricardo Rocha RBC NONE SEEN Abnormal 0-2 [facility] Comment on above: Performed By: #### U AMIC ####[facility] Ezpdpolpab3517 [place] [address]Dr. Ricardo Rocha SPEC GRAVITY 1.020 Normal 1.005-<=1.02 5 [facility] Comment on above: Performed By: #### U AMIC ####[facility] Yvenqwhqmn[address] [place], [place] [address]Dr. Ricardo Rocha UA PROTEIN Negative Normal NEGATIVE/ TRACE [facility] Comment on above: Performed By: #### U AMIC ####[facility] Ewalsknzks22[address] [place] [address]Dr. Ricardo Rocha Urobilinogen Qn (U) 0.2 {Madeleine'U}/dL Normal 0.2 - 1. 0 [facility] Comment on above: Performed By: #### U AMIC ####[facility] Gjomcgbqdv[address] [place], [place] [address]Dr. Ricardo Rocha WBC NONE SEEN Normal NONE SEEN [facility] Comment on above: Performed By: #### U AMIC ####[facility] Nboghgzmck[address] [place] [address]Dr. Ricardo Rocha CBC W MANUAL DIFFon 20 22 ATYPICAL LYMPH # Normal [facility] Comment on above: Performed By: #### C BCMAN ####[facility] Ckdvnrbafl5[address] [place] [phone]. Ricardo Rocha ATYPICAL LYMPH % Normal [facility] Comment on above: Performed By: #### C BCMAN ####[facility] Tieoulrnie67[address] [place] [phone]. Ricardo Rocha BAND # 0.2 103/ul Normal 0.0-0.3 [facility] Comment on above: Performed By: #### C BCMAN ####[facility] Jwcqfnhhfe16[address] [place] [address]Dr. Yilan Rocha BAND % 2 % Normal 0-5 [facility] Comment on above: Performed By: #### C BCMAN ####[facility] Uelkcovpul[address] [place], [place] [address]Dr. Ricardo Rocha BASOM # 0.00 103/ul Normal 0.00-0.10 [facility] Comment on above: Performed By: #### C BCRED ####[facility] Goskhkykkz[address] [place], [place] [address]Dr. Ricardo Rocha BASOM % 0.0 % Critically low 0.2-2.0 [facility] Comment on above: Performed By: #### C DWAINE ####[facility] Nfxkfehvoc[address] [place], [place] [address]Dr. Ricardo Rocha BLAST # Normal [facility] Comment on above: Performed By: #### C DWAINE ####[facility] Nnewlnljbp[address] [place], [place] [address]Dr. Ricardo Rocha BLAST % Normal [facility] Comment on above: Performed By: #### C BCRED ####[facility] Vhvunxtrmv232[address] [place] [phone]. Ricardo Rocha CORRECTED WBC Normal 4.0-11.0 [facility] Comment on above: Performed By: #### C DWAINE ####[facility] Cduhskrlfn[address] [place], [place] [address]Dr. Ricardo Rocha EOS # 0.11 103/ul Normal 0.00-0.70 [facility] Comment on above: Performed By: #### C BCRED ####[facility] Xkkfebmmti0966 [place] [phone]. Ricardo Rocha EOS% 1.0 % Normal 0.9-7.0 [facility] Comment on above: Performed By: #### C DWAINE ####[facility] Namrgxrkhm3316 [place] [phone]. Ricardo Rocha HCT 24.2 % Critically low 36.0-48.0 [facility] Comment on above: Performed By: #### C DWAINE ####[facility] Kkhovhbwaf7026 [place] [address]Dr. Ricardo Rocha HGB 7.9 g/dl Critically low 12.0-16.0 [facility] Comment on above: Performed By: #### C DWAINE ####[facility] Yqmwwgxuwz2026 [place] [address]Dr. Ricardo Rocha LYMPHM # 1.81 103/ul Normal 1.20-3.80 [facility] Comment on above: Performed By: #### C DWAINE ####[facility] Bammdjnbbo4660 [place] [address]Dr. Ricardo Rocha LYMPHM% 16.0 % Critically low 20.5-60.0 [facility] Comment on above: Performed By: #### C DWAINE ####[facility] Hcyqsfpzkg1369 [place] [address]Dr. Ricardo Rocha MCH 25.2 pg Critically low 26.7-34.0 [facility] Comment on above: Performed By: #### C DWAINE ####[facility] Rgwaqixkyw4866 [place] [address]Dr. Ricardo Rocha MCHC 32.6 g/dl Normal 29.9-35.2 [facility] Comment on above: Performed By: #### C DWAINE ####[facility] Erlekgzjzp2468 [place] [address]Dr. Ricardo Rocha MCV 77.3 fL Critically low 81.0-99.0 [facility] Comment on above: Performed By: #### C DWAINE ####[facility] Mqxdnhnbil1126 [place] [address]Dr. Ricardo Rocha METAMYELOCYTE # 0.5 103/ul Normal [facility] Comment on above: Performed By: #### C BCMAN ####[facility] Voenqjnesv2[address] [place] [address]Dr. Ricardo Rocha METAMYELOCYTE % 4 % Normal [facility] Comment on above: Performed By: #### C BCMAN ####[facility] Fvnwrmzget7[address] [place], [place] [address]Gk. Ricardo Rocha MONOM# 0.45 103/ul Normal 0.30-0.80 [facility] Comment on above: Performed By: #### C BCRED ####[facility] Ytleyhlucd0784 [place] [address]Dr. Ricardo Rocha MONOM% 4.0 % Normal 1.7-12.0 [facility] Comment on above: Performed By: #### C DWAINE ####[facility] Kvhrkyepjp0588 [place] [address]Dr. Ricardo Rocha MPV 10.4 fL Normal 9.5-13.5 [facility] Comment on above: Performed By: #### C DWAINE ####[facility] Wog[address]fbykiw[address] [place], [place] [address]Dr. Ricardo Rocha MYELOCYTE # 0.5 103/ul Normal [facility] Comment on above: Performed By: #### C DWAINE ####[facility] Hkuucrrpgf7623 [place] [address]Dr. Ricardo Rocha MYELOCYTE % 4 % Normal [facility] Comment on above: Performed By: #### C BCRED ####[facility] Wvuzvnoipi0328 [place] [address]Dr. Ricardo Rocha NRBC Normal [facility] Comment on above: Performed By: #### C DWAINE ####[facility] Vubckrajix2422 [place] [address]Dr. Ricardo Rocha PLT 325 103/ul Normal 150-450 [facility] Comment on above: Performed By: #### C DWAINE ####[facility] Luqiuyyiif5127 [place] [address]DrIrina Rocha RBC 3.13 106/ul Critically low 4.20-5.40 [facility] Comment on above: Performed By: #### C DWAINE ####[facility] Gaplizkuki3575 [place] [address]DrIrina Mcgillmarcial Aj RDW 13.7 % Normal 11.0-15.0 [facility] Comment on above: Performed By: #### C DWAINE ####[facility] Lwdpdwwnjj8952 [place] [address]DrIrina Rocha SEG # 7.80 103/ul Critically high 1.40-6.50 [facility] Comment on above: Performed By: #### C DWAINE ####[facility] Lmaqcynhqq7231 [place] [address]DrIrina Rocha SEG % 69.0 % Normal 43.0-75.0 [facility] Comment on above: Performed By: #### C DWAINE ####[facility] Hvollfomme3484 [place] [address]DrIrina Rocha WBC 11.3 103/ul Critically high 4.0-11.0 [facility] Comment on above: Performed By: #### C DWAINE ####[facility] Flsklozhhg6190 [place] [address]Dr. Ricardo Rocha PROF 14(COMP METB)on 022 Albumin [Mass/Vol] 1.7 g/dL Critically low 3.4-5.0 [facility] Comment on above: Performed By: #### C MP ####[facility] Whjwllafyl1037 [place] [phone] Rocha Albumin/Globulin [Mass ratio] 0.4 {ratio} Normal [facility] Comment on above: Performed By: #### C MP ####[facility] Bxivxqcrwm4147 [place] [phone] Rocha ALP [Catalytic activity/Vol] 174 U/L Critically high 46-116 [facility] Comment on above: Performed By: #### C MP ####[facility] Bohtqznbpb8949 [place] [address]Dr. Ricardo Rocha ALT [Catalytic activity/Vol] 14 U/L Normal 14-59 [facility] Comment on above: Performed By: #### C MP ####[facility] Lgffuwdqcx0468 [place] [address]Dr. Ricardo Rocha Anion gap [Moles/Vol] 10.8 mmol/L Normal [facility] Comment on above: Performed By: #### C MP ####[facility] Qdpsrejixz[address] [place], [place] [address]Dr. Ricardo Rocha AST [Catalytic activity/Vol] 13 U/L Critically low 15-37 [facility] Comment on above: Performed By: #### C MP ####[facility] Fuhyiididq[address] [place], [place] [address]Dr. Ricardo Rocha Bilirubin [Mass/Vol] 0.3 mg/dL Normal 0.2-1.0 [facility] Comment on above: Performed By: #### C MP ####[facility] Tvqvnjrpxc[address] [place], [place] [address]Dr. Ricardo Rocha Calcium [Mass/Vol] 8.2 mg/dL Critically low 8.5-10.1 [facility] Comment on above: Performed By: #### C MP ####[facility] Sufpmbyhxo[address] [place], [place] [address]Dr. Ricardo Rocha Chloride [Moles/Vol] 104 mmol/L Normal 98-107 [facility] Comment on above: Performed By: #### C MP ####[facility] Fgtxkdqwyz[address] [place], [place] [address]Dr. Ricardo Rocha CO2 [Moles/Vol] 22.4 mmol/L Normal 21.0-32.0 [facility] Comment on above: Performed By: #### C MP ####[facility] Qknekmtsir39[address] [place], [place] [address]Dr. Ricardo Rocha Creatinine [Mass/Vol] 1.29 mg/dL Critically high 0.55-1.02 [facility] Comment on above: Performed By: #### C MP ####[facility] Rxsyaghuqm[address] [place], [place] [address]Dr. Ricardo Rocha EGFR-AF MOSOTHO 50 mL/min/1.73m2 Critically low >=60 [facility] Comment on above: Performed By: #### C MP ####[facility] Uahvjtgasl2272 [place] [address]Dr. Ricardo Aj EGFR-NON AF MOSOTHO 42 mL/min/1.73m2 Critically low >=60 [facility] Comment on above: Performed By: #### C MP ####[facility] Ujqkraxxwy[address] [place], [place] [address]Dr. Ricardo Aj Globulin (S) [Mass/Vol] 4.8 g/dL Normal [facility] Comment on above: Performed By: #### C MP ####[facility] Dhdgvweiuj69[address] [place], [place] [address]Dr. Ricardo Rocha Glucose [Mass/Vol] 262 mg/dL Critically high 74-106 [facility] Comment on above: Performed By: #### C MP ####[facility] Nslpqkzgqt[address] [place], [place] [address]Dr. Ricardo Rocha Potassium [Moles/Vol] 3.2 mmol/L Critically low 3.5-5.1 [facility] Comment on above: Performed By: #### C MP ####[facility] Mtphgftjzh[address] [place], [place] [address]Dr. Ricardo Rocha Protein [Mass/Vol] 6.5 g/dL Normal 6.4-8.2 [facility] Comment on above: Performed By: #### C MP ####[facility] Gjcuaksqaf7[address] [place] [address]Dr. Ricardo Rocha Sodium [Moles/Vol] 134 mmol/L Critically low 136-145 [facility] Comment on above: Performed By: #### C MP ####[facility] Nomugewgso[address] [place], [place] [address]Dr. Ricardo Rocha Urea nitrogen [Mass/Vol] 20.0 mg/dL Critically high 7.0-18.0 [facility] Comment on above: Performed By: #### C MP ####[facility] Mqzrtbartm[address] [place], [place] [address]Dr. Ricardo Rocha Urea nitrogen/Creatinine [Mass ratio] 15.5 mg/mg Normal [facility] Comment on above: Performed By: #### C MP ####[facility] T[address]jtzhyt[address] [place], [place] [address]Dr. Ricardo Rocha CBC AUTO DIFFon 06-15-2022 BASO # 0.1 103/ul Normal 0.0-0.1 [facility] Comment on above: Performed By: #### C BC ####[facility] Fvbaduqjtj[address] [place], [place] [address]Dr. Ricardo Rocha Basophils/100 WBC (Bld) 0.7 % Normal 0.2-2.0 [facility] Comment on above: Performed By: #### C BC ####[facility] Fdnslyouat[address] [place], [place] [address]Dr. Ricardo Rocha EO # 0.1 103/ul Normal 0.0-0.7 [facility] Comment on above: Performed By: #### C BC ####[facility] Rkffeuxdgy[address] [place], [place] [address]Dr. Ricardo Rocha Eosinophils/100 WBC (Bld) 0.7 % Critically low 0.9-7.0 [facility] Comment on above: Performed By: #### C BC ####[facility] Dbcccxmcjt[address] [place], [place] [address]Dr. Ricardo Rocha Erythrocyte distribution width (RBC) [Ratio] 13.7 % Normal 11.0-15.0 [facility] Comment on above: Performed By: #### C BC ####[facility] Ckxapyneri[address] [place], [place] [address]Dr. Ricardo Rocah Hematocrit (Bld) [Volume fraction] 26.7 % Critically low 36.0-48.0 [facility] Comment on above: Performed By: #### C BC ####[facility] Mugldtpmfq[address] [place], [place] [address]Dr. Ricardo Rocha Hemoglobin (Bld) [Mass/Vol] 8.4 g/dL Critically low 12.0-16.0 [facility] Comment on above: Performed By: #### C BC ####[facility] Aofcnnwvtw2919 [place] [phone]. Ricardo Rocha IG # 0.83 10e3/ul Critically high 0.00-0.03 [facility] Comment on above: Performed By: #### C BC ####[facility] Eywqnkzvav0876 [place] [phone]. Ricardo Rocha IG % 6.2 % Critically high 0.0-0.5 [facility] Comment on above: Performed By: #### C BC ####[facility] Iuxhtlzgaz8790 [place] [address]Dr. Ricardo Aj LYMPH # 1.3 103/ul Normal 1.2-3.8 [facility] Comment on above: Performed By: #### C BC ####[facility] Hlyrglkhxj7696 [place] [address]Dr. Nanomarcial Rocha Lymphocytes/100 WBC (Bld) 9.6 % Critically low 20.5-60.0 [facility] Comment on above: Performed By: #### C BC ####[facility] Tojbdjzawa6110 [place] [address]Dr. Nanomarcial Rocha MANUAL DIFF REQ NO Normal [facility] Comment on above: Performed By: #### C BC ####[facility] Wfcuewsnbm5407 [place] [address]Dr. Ricardo Rocha MCH (RBC) [Entitic mass] 25.1 pg Critically low 26.7-34.0 [facility] Comment on above: Performed By: #### C BC ####[facility] Qygkykdpzq3811 [place] [address]Dr. Ricardo Rocha MCHC (RBC) [Mass/Vol] 31.5 g/dL Normal 29.9-35.2 [facility] Comment on above: Performed By: #### C BC ####[facility] Xlarmbuwmy8382 [place] [address]Dr. Ricardo Rocha MCV (RBC) [Entitic vol] 79.7 fL Critically low 81.0-99.0 [facility] Comment on above: Performed By: #### C BC ####[facility] Byoxztrkil9278 [place] [phone]. Ricardo Rocha MONO # 1.0 103/ul Critically high 0.3-0.8 [facility] Comment on above: Performed By: #### C BC ####[facility] Rmwshcrgfv5643 [place] [address]Dr. Ricardo Rocha Monocytes/100 WBC (Bld) 7.3 % Normal 1.7-12.0 [facility] Comment on above: Performed By: #### C BC ####[facility] Bekvtfndfi6970 [place] [address]Dr. Ricardo Rocha NEUT # 10.2 103/ul Critically high 1.4-6.5 [facility] Comment on above: Performed By: #### C BC ####[facility] Dzqkdfgshd1810 [place] [address]Dr. Ricardo Rocha Neutrophils/100 WBC (Bld) 75.5 % Critically high 43.0-75.0 [facility] Comment on above: Performed By: #### C BC ####[facility] Uhfkulmcdb1428 [place] [address]Dr. Ricardo Rocha Platelet mean volume (Bld) [Entitic vol] 11.8 fL Normal 9.5-13.5 [facility] Comment on above: Performed By: #### C BC ####[facility] Ytkpytmykv46[address] [place] [address]Dr. Ricardo Rocha PLT 208 103/ul Normal 150-450 [facility] Comment on above: Performed By: #### C BC ####[facility] Eomrczkkta7177 [place] [address]Dr. Ricardo Rocha RBC 3.35 106/ul Critically low 4.20-5.40 [facility] Comment on above: Performed By: #### C BC ####[facility] Acrbnpkgbf5378 [place] [address]Dr. Ricardo Rocha WBC 13.5 103/ul Critically high 4.0-11.0 [facility] Comment on above: Performed By: #### C BC ####[facility] Nsthfngrpu0936 [place] [address]Dr. Ricardo Rocha CULTURE BLOODon 06-15-2022 Microscopic examination of blood, culture Culture Observations: NO GROWTH AT 5 DAYS Normal [facility] Comment on above: Performed By: #### B LDCX2 ####[facility] Sxywhgewoe2503 [place] [address]Dr. Ricardo Rocha Microscopic examination of blood, culture Culture Observations: NO GROWTH AT 5 DAYS Normal [facility] Comment on above: Performed By: #### B LDCX1 ####[facility] Kbbqtqrlnm6037 [place] [address]Dr. Ricardo Rocha Covid-19 PCR (CVDTBH)on 05-22 SARS-CoV-2 (COVID-19) RNA ARDIEL+probe Ql (Unsp spec) Not detected Normal NOT DETECTED [facility] Comment on above: Result Comment: When diagnostic [...] for this test is supported by the [place] of Health and Human Service's declaration that [...] be used). Performed By: #### C VDTBH ####[facility] Wbevvlxuli7230 [place] [address]Dr. Ricardo Rocha POINT OF CARE GLUCOSEon 05-22 Glucose [Mass/Vol] 366 mg/dL Critically high 74-106 T [facility] Comment on above: Performed By: #### P OCGLUC ####[facility] [address]tb[address]jshcvv[address] [place], [place] [address]Dr. Ricardo Rocha Glucose [Mass/Vol] 229 mg/dL Critically high 74-106 [facility] Comment on above: Performed By: #### P OCGLUC ####[facility] Yawterfuzc[address] [place], [place] [address]Dr. Nanomarcial Aj Glucose [Mass/Vol] 258 mg/dL Critically high 74-106 [facility] Comment on above: Performed By: #### P OCGLUC ####[facility] Sshtjpsleg[address] [place], [place] [address]Dr. Ricardo Rocha PROF 14(COMP METB)on 022 Albumin [Mass/Vol] 1.8 g/dL Critically low 3.4-5.0 [facility] Comment on above: Performed By: #### C MP ####[facility] Q[address]rihnbr[address] [place], [place] [address]Dr. Ricardo Rocha Albumin/Globulin [Mass ratio] 0.4 {ratio} Normal [facility] Comment on above: Performed By: #### C MP ####[place] Z[address]jfazsltn[address] [place], [place] [address]Dr. Nanomarcial Rocha ALP [Catalytic activity/Vol] 196 U/L Critically high 46-116 [facility] Comment on above: Performed By: #### C MP ####[place] Jnkqjnusxu[address] [place], [place] [address]Dr. Ricardo Rocha ALT [Catalytic activity/Vol] 18 U/L Normal 14-59 [facility] Comment on above: Performed By: #### C MP ####[place] Sozjfmdqsq[address] [place], [place] [address]Dr. Ricardo Rocha Anion gap [Moles/Vol] 16.3 mmol/L Normal [facility] Comment on above: Performed By: #### C MP ####[place] Knqwzcaezn[address] [place], [place] [address]Dr. Ricardo Rocha AST [Catalytic activity/Vol] 22 U/L Normal 15-37 [facility] Comment on above: Performed By: #### C MP ####[place] Dgzxmdvrle15[address] [place], [place] [address]Dr. Ricardo Rocha Bilirubin [Mass/Vol] 0.4 mg/dL Normal 0.2-1.0 [facility] Comment on above: Performed By: #### C MP ####[place] Vdjoaigcrm[address] [place], [place] [address]Dr. Nanomarcial Aj Calcium [Mass/Vol] 8.2 mg/dL Critically low 8.5-10.1 [facility] Comment on above: Performed By: #### C MP ####[place] Qjazzbagdv[address] [place], [place] [address]Dr. Ricardo Rocha Chloride [Moles/Vol] 103 mmol/L Normal 98-107 [facility] Comment on above: Performed By: #### C MP ####[place] Mfcnphunbu9[address] [place], [place] [address]Dr. Ricardo Rocha CO2 [Moles/Vol] 19.0 mmol/L Critically low 21.0-32.0 [facility] Comment on above: Performed By: #### C MP ####[place] Whpoydnnsd[address] [place], [place] [address]Dr. Ricardo Rocha Creatinine [Mass/Vol] 1.32 mg/dL Critically high 0.55-1.02 [facility] Comment on above: Performed By: #### C MP ####[place] Dsyniminic[address] [place], [place] [address]Dr. Ricardo Rocha EGFR-AF MOSOTHO 49 mL/min/1.73m2 Critically low >=60 [facility] Comment on above: Performed By: #### C MP ####[place] Klazlqglex[address] [place], [place] [address]Dr. Ricardo Rocha EGFR-NON AF MOSOTHO 41 mL/min/1.73m2 Critically low >=60 [facility] Comment on above: Performed By: #### C MP ####[place] Wexazygiti[address] [place], [place] [address]Dr. Ricardo Rocha Globulin (S) [Mass/Vol] 5.0 g/dL Normal [facility] Comment on above: Performed By: #### C MP ####[place] Ycrqhtrife[address] [place], [place] [address]Dr. Ricardo Rocha Glucose [Mass/Vol] 228 mg/dL Critically high 74-106 [facility] Comment on above: Performed By: #### C MP ####[place] Fdmrvtyybp[address] [place], [place] [address]Dr. Ricardo Rocha Potassium [Moles/Vol] 3.3 mmol/L Critically low 3.5-5.1 [facility] Comment on above: Performed By: #### C MP ####[place] Pkismeorbk[address] [place], [place] [address]Dr. Ricardo Rocha Protein [Mass/Vol] 6.8 g/dL Normal 6.4-8.2 [facility] Comment on above: Performed By: #### C MP ####[place] Ongpsisywj[address] [place], [place] [address]Dr. Ricardo Rocha Sodium [Moles/Vol] 135 mmol/L Critically low 136-145 [facility] Comment on above: Performed By: #### C MP ####[place] Qiqgaodfdj39[address] [place], [place] [address]Dr. Ricardo Rocha Urea nitrogen [Mass/Vol] 23.0 mg/dL Critically high 7.0-18.0 [facility] Comment on above: Performed By: #### C MP ####[place] Hwyfwamgov[address] [place], [place] [address]Dr. Ricardo Rocha Urea nitrogen/Creatinine [Mass ratio] 17.4 mg/mg Normal [facility] Comment on above: Performed By: #### C MP ####[place] Xxduhskuxc[address] [place], [place] [address]Dr. Ricardo Rocha UA (CLEAN/CATCH) MILK CONDENSER/MICRO I F IND.on 06-15-2022 Bilirubin Ql (U) Negative Normal NEGATIVE [facility] Comment on above: Performed By: #### U MICRO, UACSIND ####[place] Tjverrglqv[address] [place], [place] [address]Dr. Ricardo Rocha Clarity (U) CLEAR Normal CLEAR [facility] Comment on above: Performed By: #### U MICRO, UACSIND ####[place] V[address]gbaiun[address] [place] [address]Dr. Ricardo Rocha Color (U) LT. YELLOW Normal YELLOW [facility] Comment on above: Performed By: #### U MICRO, UACSIND ####[place] Zoeuekwvik[address] [place], [place] [address]Dr. Nanomarcial Rocha Glucose Ql (U) 250 mg/dl Abnormal NEGATIVE [facility] Comment on above: Performed By: #### U MICRO, UACSIND ####[place] Oycvrbnied[address] [place], [place] [address]Dr. Ricardo Rocha Hemoglobin Ql (U) TRACE-LYSED Abnormal NEGATIVE [facility] Comment on above: Performed By: #### U MICRO, UACSIND ####[place] Wguqxooacx54[address] [place], [place] [address]Dr. Ricardo Rocha Ketones Ql (U) 15 mg/dl Abnormal NEGATIVE [facility] Comment on above: Performed By: #### U MICRO, UACSIND ####[place] Ninvcbriko[address] [place], [place] [address]Dr. Ricardo Rocha LEUKOCYTES Negative Normal NEGATIVE [facility] Comment on above: Performed By: #### U MICRO, UACSIND ####[place] Yugnjpslxz[address] [place], [place] [address]Dr. Ricardo Rocha Nitrite Ql (U) Negative Normal NEGATIVE [facility] Comment on above: Performed By: #### U MICRO, UACSIND ####[place] Hahnnayxmz[address] [place], [place] [address]Dr. Ricardo Rocha pH (U) 6.0 [pH] Normal 5-9 [facility] Comment on above: Performed By: #### U MICRO, UACSIND ####[place] Diixamsdqa[address] [place], [place] [address]Dr. Ricardo Rocha SPEC GRAVITY 1.010 Normal 1.005-<=1.02 5 [facility] Comment on above: Performed By: #### U MICRO, UACSIND ####[place] Niklgieaer[address] [place], [place] [address]Dr. Ricardo Rocha UA PROTEIN Negative Normal NEGATIVE/ TRACE [facility] Comment on above: Performed By: #### U MICRO, UACSIND ####[place] Drhlcvagry27[address] [place] [address]Dr. Ricardo Rocha UR MICRO IND INDICATED Normal [facility] Comment on above: Performed By: #### U MICRO, UACSIND ####[place] Qinrltpwkz7[address] [place] [address]Dr. Ricardo Rocha Urobilinogen Qn (U) 0.2 {Madeleine'U}/dL Normal 0.2 - 1. 0 [facility] Comment on above: Performed By: #### U MICRO, UACSIND ####[place] Thzpfdheee4446 [place] [address]Dr. Ricardo Rocha URINE MICROSCOPIC ONLYon BACTERIA NONE SEEN Normal NONE SEEN [facility] Comment on above: Performed By: #### U MICRO, UACSIND ####[place] Hgpxuiyduk67[address] [place] [address]Dr. Ricardo Rocha Bacteria identified Cx Nom (U) NOT INDICATED Normal [facility] Comment on above: Performed By: #### U MICRO, UACSIND ####[place] Qwpprrwjhc2970 [place] [address]Dr. Ricardo Rocha CAST NONE SEEN Normal NONE SEEN [facility] Comment on above: Performed By: #### U MICRO, UACSIND ####[place] Fgdijhouiv5414 [place] [address]Dr. Ricardo Rocha Crystals LM Nom (Urine sed) NONE SEEN Normal NONE SEEN [facility] Comment on above: Performed By: #### U MICRO, UACSIND ####[place] Zmrqkyvozp5348 [place] [address]Dr. Ricardo Rocha Epithelial cells LM Ql (Urine sed) FEW Abnormal NONE SEEN /RARE [facility] Comment on above: Performed By: #### U MICRO, UACSIND ####[place] Gmepxqtauh6[address] [place] [address]Dr. Ricardo Rocha MUCOUS NONE SEEN Normal NONE SEEN [facility] Comment on above: Performed By: #### U MICRO, UACSIND ####[place] Dllvafgype7[address] [place] [id number]. Ricardo Rocha RBC 2-5 Abnormal 0-2 [facility] Comment on above: Performed By: #### U MICRO, UACSIND ####[place] Jtrdqnabbh4[address] [place] [address]Dr. Ricardo Rocha WBC 2-5 Abnormal NONE SEEN [facility] Comment on above: Performed By: #### U MICRO, UACSIND ####[place] Wecxqwqipo9[address] [place] [address]Dr. Ricardo Rocha YEAST PRESENT Abnormal NONE SEEN [facility] Comment on above: Performed By: #### U MICRO, UACSIND ####[place] Tdiwifaocj2226 [place] [address]Dr. Ricardo Rocha CBC AUTO DIFFon 06-14-2022 BASO # 0.0 103/ul Normal 0.0-0.1 [facility] Comment on above: Performed By: #### C BC ####[place] Lilutkoqyz3939 [place] [address]Dr. Ricardo Rocha Basophils/100 WBC (Bld) 0.4 % Normal 0.2-2.0 [facility] Comment on above: Performed By: #### C BC ####[place] Izotoldnft[address] [place], [place] [address]Dr. Ricardo Rocha EO # 0.0 103/ul Normal 0.0-0.7 [facility] Comment on above: Performed By: #### C BC ####[place] Aamumdqzpf6[address] [place] [address]Dr. Ricardo Rocha Eosinophils/100 WBC (Bld) 0.4 % Critically low 0.9-7.0 [facility] Comment on above: Performed By: #### C BC ####[place] Ncuzoojdzc[address] [place], [place] [address]Dr. Ricardo Rocha Erythrocyte distribution width (RBC) [Ratio] 13.8 % Normal 11.0-15.0 [facility] Comment on above: Performed By: #### C BC ####[place] Alnsqrtpic[address] [place], [place] [address]Dr. Ricardo Aj Hematocrit (Bld) [Volume fraction] 26.2 % Critically low 36.0-48.0 [facility] Comment on above: Performed By: #### C BC ####[place] Zefclgjukt4[address] [place] [address]Dr. Ricardo Aj Hemoglobin (Bld) [Mass/Vol] 8.3 g/dL Critically low 12.0-16.0 [facility] Comment on above: Performed By: #### C BC ####[place] Vmrgknleho89[address] [place] [address]Dr. Ricardo Rocha IG # 0.24 10e3/ul Critically high 0.00-0.03 [facility] Comment on above: Performed By: #### C BC ####[place] Xypxrouqwh9172 [place] [address]Dr. Ricardo Rocha IG % 2.3 % Critically high 0.0-0.5 [facility] Comment on above: Performed By: #### C BC ####[place] Vfmqevjrre9[address] [place] [address]DrIrina Rocha LYMPH # 1.1 103/ul Critically low 1.2-3.8 [facility] Comment on above: Performed By: #### C BC ####[place] Zvdinqfjco9425 [place] [address]DrIrina Rocha Lymphocytes/100 WBC (Bld) 10.2 % Critically low 20.5-60.0 [facility] Comment on above: Performed By: #### C BC ####[place] Ckxdphmpvq0675 [place] [address]DrIrina Rocha MANUAL DIFF REQ NO Normal [facility] Comment on above: Performed By: #### C BC ####[place] Fzhfaejgau1913 [place] [address]DrIrina Rocha MCH (RBC) [Entitic mass] 25.5 pg Critically low 26.7-34.0 [facility] Comment on above: Performed By: #### C BC ####[place] Jqgphlxwmu[address] [place], [place] [address]Dr. Ricardo Rocha MCHC (RBC) [Mass/Vol] 31.7 g/dL Normal 29.9-35.2 [facility] Comment on above: Performed By: #### C BC ####[facility] Qrtrxvrmyf9016 [place] [phone]. Ricardo Rocha MCV (RBC) [Entitic vol] 80.6 fL Critically low 81.0-99.0 [facility] Comment on above: Performed By: #### C BC ####[place] Wkarepcqgk7071 [place] [address]Dr. Ricardo Rocha MONO # 0.7 103/ul Normal 0.3-0.8 [facility] Comment on above: Performed By: #### C BC ####[place] Vedyipcxen4835 [place] [address]Dr. Ricardo Rocha Monocytes/100 WBC (Bld) 6.7 % Normal 1.7-12.0 [facility] Comment on above: Performed By: #### C BC ####[place] Pfkakkgvik6274 [place] [address]Dr. Ricardo Rocha NEUT # 8.5 103/ul Critically high 1.4-6.5 [facility] Comment on above: Performed By: #### C BC ####[place] Isuoqxxnsc4531 [place] [address]Dr. Ricardo Rocha Neutrophils/100 WBC (Bld) 80.0 % Critically high 43.0-75.0 [facility] Comment on above: Performed By: #### C BC ####[place] Auxepdkkzd3745 [place] [address]Dr. Ricardo Rocha Platelet mean volume (Bld) [Entitic vol] 12.1 fL Normal 9.5-13.5 [facility] Comment on above: Performed By: #### C BC ####[place] Olgvminpnx3353 [place] [address]Dr. Ricardo Aj PLT 173 103/ul Normal 150-450 [facility] Comment on above: Performed By: #### C BC ####[place] Hicrfpllav7597 [place] [address]Dr. Ricardo Rocha RBC 3.25 106/ul Critically low 4.20-5.40 [facility] Comment on above: Performed By: #### C BC ####[place] Fjnwoftgny6554 [place] [address]Dr. Ricardo Rocha WBC 10.6 103/ul Normal 4.0-11.0 [facility] Comment on above: Performed By: #### C BC ####[place] Kkslzhbpay[address] [place] [phone]. Ricardo Rocha POINT OF CARE GLUCOSEon 05-22 Glucose [Mass/Vol] 237 mg/dL Critically high 74-106 [facility] Comment on above: Performed By: #### P OCGLUC ####[place] Crbwutplwa0392 [place] [address]Dr. Ricardo Rocha Glucose [Mass/Vol] 296 mg/dL Critically high 74-106 [facility] Comment on above: Performed By: #### P OCGLUC ####[place] Rpvnkdncod6129 [place] [address]Dr. Ricardo Rocha Glucose [Mass/Vol] 406 mg/dL Critically high 74-106 [facility] Comment on above: Performed By: #### P OCGLUC ####[place] Jqhphtpnoo4971 [place] [address]Dr. Ricardo Rocha Glucose [Mass/Vol] 447 mg/dL Critically high 74-106 [facility] Comment on above: Performed By: #### P OCGLUC ####[place] Fkpndhemlh3478 [place] [address]Dr. Ricardo Rocha Glucose [Mass/Vol] 319 mg/dL Critically high 74-106 [facility] Comment on above: Performed By: #### P OCGLUC ####[place] Simhrqcprf[address] [place], [place] [address]Dr. Ricardo Aj PROF 14(COMP METB)on 022 Albumin [Mass/Vol] 1.6 g/dL Critically low 3.4-5.0 [facility] Comment on above: Performed By: #### C MP ####[place] Zkwtegymml3190 [place] [address]Dr. Ricardo Rocha Albumin/Globulin [Mass ratio] 0.3 {ratio} Normal [facility] Comment on above: Performed By: #### C MP ####[place] Sqdofdxwyr0945 [place] [phone]. Ricardo Aj ALP [Catalytic activity/Vol] 201 U/L Critically high 46-116 [facility] Comment on above: Performed By: #### C MP ####[place] Usohjcotgp[address] [place], [place] [address]Dr. Ricardo Aj ALT [Catalytic activity/Vol] 23 U/L Normal 14-59 [facility] Comment on above: Performed By: #### C MP ####[place] Avsdmfmgir[address] [place], [place] [address]Dr. Ricardo Rocha Anion gap [Moles/Vol] 16.0 mmol/L Normal [facility] Comment on above: Performed By: #### C MP ####[place] Zdjlrhdrvr[address] [place], [place] [address]Dr. Ricardo Aj AST [Catalytic activity/Vol] 21 U/L Normal 15-37 [facility] Comment on above: Performed By: #### C MP ####[place] Zjezctaptm[address] [place], [place] [address]Dr. Nanomarcial Aj Bilirubin [Mass/Vol] 0.4 mg/dL Normal 0.2-1.0 [facility] Comment on above: Performed By: #### C MP ####[place] Yocefuuwuv[address] [place], [place] [address]Dr. Ricardo Rocha Calcium [Mass/Vol] 7.6 mg/dL Critically low 8.5-10.1 [facility] Comment on above: Performed By: #### C MP ####[place] Dylbrrebbm[address] [place], [place] [address]Dr. Ricardo Rocha Chloride [Moles/Vol] 105 mmol/L Normal 98-107 [facility] Comment on above: Performed By: #### C MP ####[place] Bteygrobre7[address] [place] [address]Dr. Ricardo Rocha CO2 [Moles/Vol] 17.3 mmol/L Critically low 21.0-32.0 [facility] Comment on above: Performed By: #### C MP ####[place] Fmgnhygwbb5907 [place] [phone]. Ricardo Rocha Creatinine [Mass/Vol] 1.54 mg/dL Critically high 0.55-1.02 [facility] Comment on above: Performed By: #### C MP ####[place] Ougjytbwoo8278 [place] [address]Dr. Ricardo Rocha EGFR-AF MOSOTHO 41 mL/min/1.73m2 Critically low >=60 [facility] Comment on above: Performed By: #### C MP ####[place] Pvbomfjluk[address] [place], [place] [address]Dr. Ricardo Rocha EGFR-NON AF MOSOTHO 34 mL/min/1.73m2 Critically low >=60 [facility] Comment on above: Performed By: #### C MP ####[place] Sjpwktmgcs3282 [place] [phone]. Ricardo Rocha Globulin (S) [Mass/Vol] 4.7 g/dL Normal [facility] Comment on above: Performed By: #### C MP ####[place] Uiddnadcfh7095 [place] [address]Dr. Ricardo Rocha Glucose [Mass/Vol] 277 mg/dL Critically high 74-106 T [facility] Comment on above: Performed By: #### C MP ####[place] Rvhwmlkgux7508 [place] [phone]. Ricardo Rocha Potassium [Moles/Vol] 3.3 mmol/L Critically low 3.5-5.1 [facility] Comment on above: Performed By: #### C MP ####[place] Osksbvmdqt1315 [place] [address]Dr. Ricardo Rocha Protein [Mass/Vol] 6.3 g/dL Critically low 6.4-8.2 [facility] Comment on above: Performed By: #### C MP ####[place] Mrqefbgdxu0426 [place] [phone]. Ricardo Rocha Sodium [Moles/Vol] 135 mmol/L Critically low 136-145 [facility] Comment on above: Performed By: #### C MP ####[place] [address]fif[address] [place], [place] [address]Dr. Ricardo Rocha Urea nitrogen [Mass/Vol] 29.0 mg/dL Critically high 7.0-18.0 [facility] Comment on above: Performed By: #### C MP ####[place] Tvewrjiinb[address] [place], [place] [address]Dr. Ricardo Rocha Urea nitrogen/Creatinine [Mass ratio] 18.8 mg/mg Normal [facility] Comment on above: Performed By: #### C MP ####[place] Rkbsbercqw9[address] [place], [place] [address]Dr. Ricardo Rocha CBC AUTO DIFFon 06-13-2022 BASO # 0.0 103/ul Normal 0.0-0.1 [facility] Comment on above: Performed By: #### C BC ####[place] Slukrgrqcq[address] [place], [place] [address]Dr. Ricardo Rocha Basophils/100 WBC (Bld) 0.2 % Normal 0.2-2.0 [facility] Comment on above: Performed By: #### C BC ####[place] Bedwildawc[address] [place], [place] [address]Dr. Ricardo Rocha EO # 0.1 103/ul Normal 0.0-0.7 [facility] Comment on above: Performed By: #### C BC ####[place] Cbugwxebso[address] [place], [place] [address]Dr. Ricardo Rocha Eosinophils/100 WBC (Bld) 0.6 % Critically low 0.9-7.0 [facility] Comment on above: Performed By: #### C BC ####[place] Qvkdlsplbl99[address] [place], [place] [address]Dr. Ricardo Rocha Erythrocyte distribution width (RBC) [Ratio] 14.2 % Normal 11.0-15.0 [facility] Comment on above: Performed By: #### C BC ####[place] Wugiknrjzu7456 [place] [address]Dr. Ricardo Rocha Hematocrit (Bld) [Volume fraction] 27.9 % Critically low 36.0-48.0 [facility] Comment on above: Performed By: #### C BC ####[place] Fbtsdnesua1792 [place] [address]Dr. Ricardo Rocha Hemoglobin (Bld) [Mass/Vol] 8.6 g/dL Critically low 12.0-16.0 [facility] Comment on above: Performed By: #### C BC ####[place] Zwotmdfbnh6546 [place] [address]Dr. Nanomarcial Rocha IG # 0.08 10e3/ul Critically high 0.00-0.03 [facility] Comment on above: Performed By: #### C BC ####[place] Msrsugzlwz2391 [place] [address]DrIrina Rocha IG % 0.8 % Critically high 0.0-0.5 [facility] Comment on above: Performed By: #### C BC ####[place] Efxiuldymq6573 [place] [address]DrIrina Ricardo Aj LYMPH # 0.9 103/ul Critically low 1.2-3.8 [facility] Comment on above: Performed By: #### C BC ####[place] Xlwosomrni4026 [place] [address]DrIrina Nanomarcial Rocha Lymphocytes/100 WBC (Bld) 8.9 % Critically low 20.5-60.0 [facility] Comment on above: Performed By: #### C BC ####[place] Oqknoecgri3367 [place] [address]DrIrina Nanomarcial Rocha MANUAL DIFF REQ NO Normal [facility] Comment on above: Performed By: #### C BC ####[place] Rtfqhyjmlb5138 [place] [address]DrIrina Rocha MCH (RBC) [Entitic mass] 25.1 pg Critically low 26.7-34.0 [facility] Comment on above: Performed By: #### C BC ####[place] Sartacduua5390 [place] [phone]. Ricardo Aj MCHC (RBC) [Mass/Vol] 30.8 g/dL Normal 29.9-35.2 [facility] Comment on above: Performed By: #### C BC ####[place] Kzhafkzsdf4516 [place] [phone] Rocha MCV (RBC) [Entitic vol] 81.6 fL Normal 81.0-99.0 [facility] Comment on above: Performed By: #### C BC ####[place] Watnrhdvvp8314 [place] [address]DrIrina Rocha MONO # 0.6 103/ul Normal 0.3-0.8 [facility] Comment on above: Performed By: #### C BC ####[place] Hcxovhlxqb6899 [place] [address]Dr. Ricardo Rocha Monocytes/100 WBC (Bld) 5.7 % Normal 1.7-12.0 [facility] Comment on above: Performed By: #### C BC ####[place] [address]ivxwtqf[address] [place], [place] [address]Dr. Ricardo Rocha NEUT # 8.4 103/ul Critically high 1.4-6.5 [facility] Comment on above: Performed By: #### C BC ####[place] Qebsxqxkan264[address] [place], [place] [address]Dr. Ricardo Rocha Neutrophils/100 WBC (Bld) 83.8 % Critically high 43.0-75.0 [facility] Comment on above: Performed By: #### C BC ####[place] Dnqtclwdlx7965 [place] [phone] Rocha Platelet mean volume (Bld) [Entitic vol] 12.1 fL Normal 9.5-13.5 [facility] Comment on above: Performed By: #### C BC ####[place] Dzkfzsiqgh4062 [place] [address]DrIrina Rocha PLT 149 103/ul Critically low 150-450 [facility] Comment on above: Performed By: #### C BC ####[place] Pcejossfoq4059 [place] [address]Dr. Ricardo Rocha RBC 3.42 106/ul Critically low 4.20-5.40 [facility] Comment on above: Performed By: #### C BC ####[place] Yfiwxfohrf3005 [place] [address]Dr. Ricardo Rocha WBC 10.0 103/ul Normal 4.0-11.0 [facility] Comment on above: Performed By: #### C BC ####[place] Bnrtmxqkzc0151 [place] [phone]. Ricardo Rocha CULTURE OTHERon 06-13-2022 CULTURE OTHER Normal [facility] Comment on above: Performed By: #### O THCX ####[place] Jrkdvjogjn84[address] [place], [place] [address]Dr. Ricardo Rocha CULTURE OTHER Normal [facility] Comment on above: Performed By: #### O THCX ####[place] Yuepbguczm[address] [place], [place] [address]Dr. Rciardo Rocha CULTURE OTHER Normal [facility] Comment on above: Performed By: #### O THCX ####[place] Bysutzczhp[address] [place], [place] [address]Dr. Ricardo Aj GI PANEL (PCR)on 06-13-2022 Adenovirus F 40/41 Not detected Normal NOT DETECTED [facility] Comment on above: Performed By: #### G IPANEL ####[place] Zxzrnzsoks8606 [place] [address]Dr. Ricardo Rocha Astrovirus Not detected Normal NOT DETECTED [facility] Comment on above: Performed By: #### G IPANEL ####[place] Ubgprirpda[address] [place], [place] [address]Dr. Ricardo Rocha C. Diff toxin A/B Not detected Normal NOT DETECTED [facility] Comment on above: Performed By: #### G IPANEL ####[place] Nnctykaxcu84[address] [place], [place] [address]Dr. Ricardo Rocha Campylobacter Not detected Normal NOT DETECTED [facility] Comment on above: Performed By: #### G IPANEL ####[place] Vyrjbnfcct[address] [place], [place] [address]Dr. Ricardo Rocha Cryptosporidium Not detected Normal NOT DETECTED The [facility] Comment on above: Performed By: #### G IPANEL ####[place] Hotckcegxv99[address] [place], [place] [address]Dr. Nanomarcial Rocha Cyclos. Cayetanensis Not detected Normal NOT DETECTED [facility] Comment on above: Performed By: #### G IPANEL ####[place] Hjengrghse[address] [place], [place] [address]Dr. Nanomarcial Rocha E. Coli O157 Not Applicable Normal Not Applicable [facility] Comment on above: Performed By: #### G IPANEL ####[place] Xxwujozcmd[address] [place], [place] [address]Dr. Ricardo Rocha E. histolytica Not detected Normal NOT DETECTED [facility] Comment on above: Performed By: #### G IPANEL ####[place] Pmjgliybsj[address] [place], [place] [address]Dr. Ricardo Rocha EAEC Not detected Normal NOT DETECTED [facility] Comment on above: Performed By: #### G IPANEL ####[place] Ilpqjwpfpa[address] [place], [place] [address]Dr. Ricardo Rocha EIEC Not detected Normal NOT DETECTED [facility] Comment on above: Performed By: #### G IPANEL ####[place] Hpoghmfhpz[address] [place], [place] [address]Dr. Ricardo Rocha EPEC Not detected Normal NOT DETECTED [facility] Comment on above: Performed By: #### G IPANEL ####[place] Boeydsshma[address] [place], [place] [address]Dr. Ricardo Rocha ETEC Not detected Normal NOT DETECTED [facility] Comment on above: Performed By: #### G IPANEL ####[place] Pfwdsjvozc[address] [place], [place] [address]Dr. Nanomarcial Rocha G. [place] Not detected Normal NOT DETECTED [facility] Comment on above: Performed By: #### G IPANEL ####[place] Isohdfrepw27[address] [place] [id number]. Ricardo Rocha GIPANEL CONTROLS PASSED Normal The [facility] Comment on above: Performed By: #### G IPANEL ####[place] Uprwusuqit6314 [place] [id number]. Ricardo Rocha GIPNL MONIQUE HEADER GI PANEL BACTERIA Normal T [facility] Comment on above: Performed By: #### G IPANEL ####[place] Lrutxbigwd8154 [place] [id number]. Yimarcial Rocha GIPNLHD ECOLI GI PANEL DIARRHEAGEN IC E.COLI / SHIGELLA Normal The [place] Comment on above: Performed By: #### G IPANEL ####[place] Xncgxmoxvr5[address] [place] [address]Dr. Yimarcial Rocha GIPNLHD INFO SEE BELOW Normal The [place] Comment on above: Result Comment: EAEC - Enteroaggregative E. Coli EPEC- Enteropathogenic E. Coli ETEC- Enterotoxigenic E. Coli lt/st STEC- Shigella-like toxin-producing E. Coli stx1/stx2 EIEC- Shigella/Enteroinvasive E. Coli Performed By: #### G IPANEL ####[place] Etiyffdgso027[address] [place], [place] [address]Dr. Yimarcial Rocha GIPNLHD PARASITES GI PANEL PARASITES Normal The [place] Comment on above: Performed By: #### G IPANEL ####[place] Auqbvsxaqb[address] [place], [place] [address]Dr. Yimarcial Rocha GIPNLHD VIRUS GI PANEL VIRUSES Normal The [facility] Comment on above: Performed By: #### G IPANEL ####[place] Dgsjvfuzcr83[address] [place], [place] [address]Dr. Nanomarcial Rocha Norovirus GI/GII Not detected Normal NOT DETECTED The [place] Comment on above: Performed By: #### G IPANEL ####[place] Sfpcelskls20[address] [place], [place] [address]Dr. Ricardo Rocha P. Shigelloides Not detected Normal NOT DETECTED The [facility] Comment on above: Performed By: #### G IPANEL ####[place] Mxnpprepfb475[address] [place], [place] [address]Dr. Ricardo Rocha Rotavirus A Not detected Normal NOT DETECTED The [facility] Comment on above: Performed By: #### G IPANEL ####[place] Xcmwqvnbgc9[address] [place], [place] [address]Dr. Ricardo Rocha Salmonella Not detected Normal NOT DETECTED [facility] Comment on above: Performed By: #### G IPANEL ####[place] Padydkssnv9[address] [place], [place] [address]Dr. Ricardo Rocha Sapovirus Not detected Normal NOT DETECTED [facility] Comment on above: Performed By: #### G IPANEL ####[place] Bsebhcjvlc[address] [place], [place] [address]Dr. Ricardo Rocha STEC Not detected Normal NOT DETECTED [facility] Comment on above: Performed By: #### G IPANEL ####[place] Zplxcglmlw[address] [place], [place] [address]Dr. Ricardo Rocha Vibrio Not detected Normal NOT DETECTED [facility] Comment on above: Performed By: #### G IPANEL ####[place] Uqlmovajvl64[address] [place], [place] [address]Dr. Ricardo Rocha Vibrio Cholera Not detected Normal NOT DETECTED [facility] Comment on above: Performed By: #### G IPANEL ####[place] Shgpjlhlda22[address] [place], [place] [address]Dr. Ricardo Rocha Y. Enterocolitica Not detected Normal NOT DETECTED The [place] Comment on above: Performed By: #### G IPANEL ####[place] Mqmfxcekuq998[address] [place], [place] [address]Dr. Ricardo Rocha IRON AND TIBCon 06-13-2021 % SATURATION 19.9 % Normal [facility] [place] Comment on above: Performed By: #### F ETIBC, B12FOL ####[place] Umzienczdy[address] [place], [place] [address]Dr. Ricardo Rocha Iron [Mass/Vol] 75.0 ug/dL Normal 50.0-170.0 [facility] Comment on above: Performed By: #### F ETIBC, B12FOL ####[place] Khcldfyixl5650 [place] [phone]. Ricardo Rocha TIBC DIRECT 376.0 ug/dL Normal 250.0-450.0 [facility] Comment on above: Performed By: #### F ETIBC, B12FOL ####[place] Bhxfxkdldr0341 [place] [phone]. Ricardo Aj POINT OF CARE GLUCOSEon 05-22 Glucose [Mass/Vol] 238 mg/dL Critically high 74-106 [facility] Comment on above: Performed By: #### P OCGLUC ####[place] Hfbinxtqth2628 [place] [address]Dr. Ricardo Rocha Glucose [Mass/Vol] 146 mg/dL Critically high -106 [facility] Comment on above: Performed By: #### P OCGLUC ####[place] Smsoaibsnf019[address] [place], [place] [address]Dr. Ricardo Rocha Glucose [Mass/Vol] 143 mg/dL Critically high -106 [facility] Comment on above: Performed By: #### P OCGLUC ####[place] Erszdfyjxz757[address] [place], [place] [address]Dr. Ricardo Rocha Glucose [Mass/Vol] 205 mg/dL Critically high -106 [facility] Comment on above: Performed By: #### P OCGLUC ####[place] Tirbufarei7456 [place] [address]Dr. Ricardo Rocha Glucose [Mass/Vol] 227 mg/dL Critically high -106 [facility] Comment on above: Performed By: #### P OCGLUC ####[place] Dskzxxgbui[address] [place], [place] [address]Dr. Ricardo Rocha PROF 14(COMP METB)on 022 Albumin [Mass/Vol] 1.5 g/dL Critically low 3.4-5.0 [facility] Comment on above: Performed By: #### C MP ####[place] Uutididzyf90[address] [place], [place] [address]Dr. Ricardo Rocha Albumin/Globulin [Mass ratio] 0.3 {ratio} Normal [facility] Comment on above: Performed By: #### C MP ####[place] Hzodlctzgl1062 [place] [address]Dr. Ricardo Rocha ALP [Catalytic activity/Vol] 136 U/L Critically high 46-116 [facility] Comment on above: Performed By: #### C MP ####[place] Iactnwgyjm0[address] [place], [place] [address]Dr. Ricardo Rocha ALT [Catalytic activity/Vol] 18 U/L Normal 14-59 [facility] Comment on above: Performed By: #### C MP ####[place] Rmveezaoah4237[address] [place], [place] [address]Dr. Ricardo Rocha Anion gap [Moles/Vol] 10.2 mmol/L Normal [facility] Comment on above: Performed By: #### C MP ####[place] Yqecjqxqhx960[address] [place], [place] [address]Dr. Ricardo Rocha AST [Catalytic activity/Vol] 37 U/L Normal 15-37 [facility] Comment on above: Performed By: #### C MP ####[place] Iaugamzsoo155[address] [place], [place] [address]Dr. Ricardo Rocha Bilirubin [Mass/Vol] 0.4 mg/dL Normal 0.2-1.0 [facility] Comment on above: Performed By: #### C MP ####[place] Dtiulbsszd5[address] [place], [place] [address]Dr. Ricardo Rocha Calcium [Mass/Vol] 8.0 mg/dL Critically low 8.5-10.1 [facility] Comment on above: Performed By: #### C MP ####[place] Jrwdmjpbav118141 [address] [place], [place] [address]Dr. Ricardo Rocha Chloride [Moles/Vol] 110 mmol/L Critically high 98-107 [facility] Comment on above: Performed By: #### C MP ####[place] Docaacyzte260[address] [place], [place] [address]Dr. Ricardo Rocha CO2 [Moles/Vol] 18.2 mmol/L Critically low 21.0-32.0 [facility] Comment on above: Performed By: #### C MP ####[place] Wkyeqgdhvr0357 [place] [address]Dr. Ricardo Rocha Creatinine [Mass/Vol] 1.76 mg/dL Critically high 0.55-1.02 [facility] Comment on above: Performed By: #### C MP ####[place] Osgogspjhi3605 [place] [address]Dr. Ricardo Rocha EGFR-AF MOSOTHO 35 mL/min/1.73m2 Critically low >=60 [facility] Comment on above: Performed By: #### C MP ####[place] Jmfgxgsilh7167[address] [place], [place] [address]Dr. Ricardo Rocha EGFR-NON AF MOSOTHO 29 mL/min/1.73m2 Critically low >=60 [facility] Comment on above: Performed By: #### C MP ####[place] Antpevuysc028[address] [place], [place] [address]Dr. Ricardo Rocha Globulin (S) [Mass/Vol] 4.7 g/dL Normal [facility] Comment on above: Performed By: #### C MP ####[place] Tfxcftupji[address] [place], [place] [address]Dr. Ricardo Rocha Glucose [Mass/Vol] 223 mg/dL Critically high 74-106 [facility] Comment on above: Performed By: #### C MP ####[place] Wzrggbjemf0413[address] [place], [place] [address]Dr. Ricardo Rocha Potassium [Moles/Vol] 3.4 mmol/L Critically low 3.5-5.1 [facility] Comment on above: Performed By: #### C MP ####[place] Ghoqkfonwi[address] [place], [place] [address]Dr. Ricardo Rocha Protein [Mass/Vol] 6.2 g/dL Critically low 6.4-8.2 [facility] Comment on above: Performed By: #### C MP ####[place] Kiyxkwyzhh1220[address] [place], [place] [address]Dr. Ricardo Rocha Sodium [Moles/Vol] 135 mmol/L Critically low 136-145 Th e [place] Comment on above: Performed By: #### C MP ####[place] Dueuoqwntu2510[address] [place], [place] [address]Dr. Ricardo Rocha Urea nitrogen [Mass/Vol] 33.0 mg/dL Critically high 7.0-18.0 [facility] Comment on above: Performed By: #### C MP ####[place] Pbpgqdtuye659[address] [place], [place] [address]Dr. Ricardo Rocha Urea nitrogen/Creatinine [Mass ratio] 18.8 mg/mg Normal [facility] Comment on above: Performed By: #### C MP ####[place] Jixfkxfmtx4655[address] [place], [place] [address]Dr. Ricardo Rocha VANCOMYCIN TROUGHon 06-13-20 22 VANCOMYCIN TROUGH 15.2 ug/ml Normal 5.0-20.0 [facility] Comment on above: Performed By: #### V ANCT ####[place] Umafpytcnm96[address] [place], [place] [address]Dr. Ricardo Rocha VIT B12 AND FOLATEon 022 Cobalamin (Vitamin B12) [Mass/Vol] 874.0 pg/mL Normal 193.0-986.0 [facility] Comment on above: Performed By: #### F ETIBC, B12FOL ####[place] Ejmcmiyuou8[address] [place], [place] [address]Dr. Ricardo Rocha FOLATE 6.60 ng/mL Critically low 8.60-58.90 [facility] Comment on above: Performed By: #### F ETIBC, B12FOL ####[place] Palsmevezm12[address] [place] [address]Dr. Ricardo Aj XR FOOT LT MIN 3 VIEWSon XR FOOT LT MIN 3 VIEWS Normal [facility] [place] CBC W MANUAL DIFFon 06-12-20 22 ATYPICAL LYMPH # Normal [facility] Comment on above: Performed By: #### C BCMAN ####[place] Nyfwbxbhwu[address] [place], [place] [address]Dr. Ricardo Aj ATYPICAL LYMPH % Normal [facility] Comment on above: Performed By: #### C BCMAN ####[place] Smovfehjpo2861 [place] [address]Dr. Ricardo Rocha BAND # 1.9 103/ul Critically high 0.0-0.3 [facility] Comment on above: Performed By: #### C BCMAN ####[place] Wtpqypvjyn1897 [place] [address]Dr. Yilan Rocha BAND % 17 % Critically high 0-5 [facility] Comment on above: Performed By: #### C BCMAN ####[place] Usztnkyfpv0497 [place] [address]Dr. Ricardo Rocha BASOM # 0.00 103/ul Normal 0.00-0.10 [facility] [place] Comment on above: Performed By: #### C BCRED ####[place] Qzkxcozttb0425 [place] [address]Dr. Ricardo Rocha BASOM % 0.0 % Critically low 0.2-2.0 [facility] Comment on above: Performed By: #### C BCRDE ####[place] Hekushowqz[address] [place] [address]Dr. Yimarcial Rocha BLAST # Normal [facility] [place] Comment on above: Performed By: #### C BCRED ####[place] Rjpnultdye8323 [place] [address]Dr. Ricardo Rocha BLAST % Normal [facility] [place] Comment on above: Performed By: #### C BCRED ####[place] Kshenytaez1431 [place] [address]Dr. Ricardo Rocha CORRECTED WBC Normal 4.0-11.0 The [facility] Comment on above: Performed By: #### C BCRED ####[place] Bhlkvsvjmc0327 [place] [address]Dr. Ricardo Rocha EOS # 0.00 103/ul Normal 0.00-0.70 [facility] [place] Comment on above: Performed By: #### C BCRED ####[place] Stnmigersi2885 [place] [address]Dr. Yilan Rocha EOS% 0.0 % Critically low 0.9-7.0 [facility] Comment on above: Performed By: #### C BCRED ####[place] Nurludahvc9334 [place] [address]Dr. Ricardo Rocha HCT 28.0 % Critically low 36.0-48.0 [facility] Comment on above: Performed By: #### C BCRED ####[place] Feepsaabga5259 [place] [address]Dr. Ricardo Rocha HGB 8.6 g/dl Critically low 12.0-16.0 [facility] Comment on above: Performed By: #### C DWAINE ####[place] Zyobumwmgj0482 [place] [address]Dr. Ricardo Rocha HYPOCHROMASIA SLIGHT Normal [facility] Comment on above: Performed By: #### C DWAINE ####[place] Uayaatxjot8491 [place] [address]Dr. Ricardo Rocha LYMPHM # 0.77 103/ul Critically low 1.20-3.80 [facility] Comment on above: Performed By: #### C DWAINE ####[place] Mpdnubtcgq3837 [place] [address]Dr. Ricardo Rocha LYMPHM% 7.0 % Critically low 20.5-60.0 [facility] Comment on above: Performed By: #### C DWAINE ####[place] Paqqlaaedc1679 [place] [address]Dr. Ricardo Rocha MCH 25.1 pg Critically low 26.7-34.0 [facility] Comment on above: Performed By: #### C DWAINE ####[place] Oxgdnzzyis6222 [place] [address]Dr. Ricardo Rocha MCHC 30.7 g/dl Normal 29.9-35.2 [facility] [place] Comment on above: Performed By: #### C DWAINE ####[place] Fcojzyyqmp6243 [place] [address]Dr. Ricardo Rocha MCV 81.9 fL Normal 81.0-99.0 [facility] [place] Comment on above: Performed By: #### C DWAINE ####[place] Gxowwsmepm6143 [place], [place] [address]Mq. Ricardo Rocha METAMYELOCYTE # Normal [facility] Comment on above: Performed By: #### C DWAINE ####[place] Bemghpiqfe9189 [place], [place] [address]Bt. Yimarcial Rocha METAMYELOCYTE % Normal [facility] Comment on above: Performed By: #### C DWAINE ####[place] Njppzfzclm0675 [place] [address]Dr. Ricardo Rocha MONOM# 0.11 103/ul Critically low 0.30-0.80 [facility] Comment on above: Performed By: #### C DWAINE ####[place] Buttzbodhn8023 [place] [address]Dr. Ricardo Rocha MONOM% 1.0 % Critically low 1.7-12.0 [facility] Comment on above: Performed By: #### C DWAINE ####[place] Ooucuwttqf2708 [place] [address]Dr. Ricardo Rocha MPV 12.6 fL Normal 9.5-13.5 [facility] Comment on above: Performed By: #### C DWAINE ####[place] Ohdlisdsja6453 [place] [address]Dr. Ricardo Rocha MYELOCYTE # Normal [facility] [place] Comment on above: Performed By: #### C DWAINE ####[place] Pqnlzxxzrg0511 [place] [address]Dr. Ricardo Rocha MYELOCYTE % Normal [facility] [place] Comment on above: Performed By: #### C DWAINE ####[place] Fjcbuzborf6030 [place] [address]Dr. Ricardo Rocha NRBC Normal [facility] [place] Comment on above: Performed By: #### C DWAINE ####[place] Epelbwbeqn8890 [place] [address]Dr. Ricardo Rocha PLT 140 103/ul Critically low 150-450 [facility] Comment on above: Performed By: #### C DWAINE ####[place] Vcxlajohwe2255 [place], [place] [address]Mw. Ricardo Rocha RBC 3.42 106/ul Critically low 4.20-5.40 [facility] Comment on above: Performed By: #### C DWAINE ####[place] Ydjxqsbwbf3474 [place], [place] [address]Pd. Ricardo Rocha RDW 13.7 % Normal 11.0-15.0 [facility] Comment on above: Performed By: #### C DWAINE ####[place] Qpguwfgpoh3695 [place], [place] [address]Yi. Ricardo Rocha SEG # 8.25 103/ul Critically high 1.40-6.50 [facility] Comment on above: Performed By: #### C DWAINE ####[place] Besxdvlzgc3025 [place] [address]Dr. Ricardo Rocha SEG % 75.0 % Normal 43.0-75.0 [facility] Comment on above: Performed By: #### C DWAINE ####[place] Ezqoehmzky8987 [place] [address]Dr. Ricardo Rocha WBC 11.0 103/ul Normal 4.0-11.0 [facility] Comment on above: Performed By: #### C DWAINE ####[place] Avcswregwv6273 [place], [place] [address]Sq. Ricardo Rocha POINT OF CARE GLUCOSEon 10-2 Glucose [Mass/Vol] 200 mg/dL Critically high 74-106 [facility] Comment on above: Performed By: #### P OCGLUC ####[place] Gkteumnqsk1729 [place], [place] [address]Tl. Ricardo Rocha Glucose [Mass/Vol] 165 mg/dL Critically high 74-106 [facility] Comment on above: Performed By: #### P OCGLUC ####[place] Fzjxpvlxev9634 [place] [address]Dr. Ricardo Rocha Glucose [Mass/Vol] 152 mg/dL Critically high 74-106 [facility] Comment on above: Performed By: #### P OCGLUC ####[place] Kfvtaxgwtw0448 [place] [address]Dr. Ricardo Rocha Glucose [Mass/Vol] 154 mg/dL Critically high 74-106 [facility] Comment on above: Performed By: #### P OCGLUC ####[place] Mpdzxddsjj8787 [place] [address]Dr. Ricardo Rocha PROF 14(COMP METB)on 022 Albumin [Mass/Vol] 1.9 g/dL Critically low 3.4-5.0 [facility] Comment on above: Performed By: #### C MP ####[place] Uaazbvnvky1090 [place] [address]Dr. Ricardo Rocha Albumin/Globulin [Mass ratio] 0.4 {ratio} Normal [facility] Comment on above: Performed By: #### C MP ####[place] Rrlulwtviw[address] [place], [place] [address]Dr. Ricardo Rocha ALP [Catalytic activity/Vol] 68 U/L Normal 46-116 [facility] Comment on above: Performed By: #### C MP ####[place] Yjvpfaecxc1056 [place] [address]Dr. Ricardo Rocha ALT [Catalytic activity/Vol] 16 U/L Normal 14-59 [facility] Comment on above: Performed By: #### C MP ####[place] Vxkrbgoukh9000 [place] [address]Dr. Ricardo Rocha Anion gap [Moles/Vol] 15.1 mmol/L Normal [facility] Comment on above: Performed By: #### C MP ####[place] Jodtixxlba8349 [place] [address]Dr. Ricardo Rocha AST [Catalytic activity/Vol] 26 U/L Normal 15-37 [facility] Comment on above: Performed By: #### C MP ####[place] Dxcqbbckaw9015 [place] [address]Dr. Ricardo Rocha Bilirubin [Mass/Vol] 0.3 mg/dL Normal 0.2-1.0 [facility] Comment on above: Performed By: #### C MP ####[place] Dhgryvvtdi2960 [place] [address]Dr. Ricardo Rocha Calcium [Mass/Vol] 8.0 mg/dL Critically low 8.5-10.1 [facility] Comment on above: Performed By: #### C MP ####[place] Elwrezcxcg4250 [place] [address]Dr. Ricardo Rocha Chloride [Moles/Vol] 110 mmol/L Critically high 98-107 [facility] Comment on above: Performed By: #### C MP ####[place] Ohuskenpon2899 [place] [address]Dr. Ricardo Rocha CO2 [Moles/Vol] 18.0 mmol/L Critically low 21.0-32.0 [facility] Comment on above: Performed By: #### C MP ####[place] Eaecxemubu[address] [place], [place] [address]Dr. Ricardo Rocha Creatinine [Mass/Vol] 1.97 mg/dL Critically high 0.55-1.02 [facility] Comment on above: Performed By: #### C MP ####[place] Ckbvxbjtpz[address] [place], [place] [address]Dr. Ricardo Rocha EGFR-AF MOSOTHO 31 mL/min/1.73m2 Critically low >=60 [facility] Comment on above: Performed By: #### C MP ####[place] Vkebjdyjqa66[address] [place], [place] [address]Dr. Ricardo Rocha EGFR-NON AF MOSOTHO 26 mL/min/1.73m2 Critically low >=60 [facility] Comment on above: Performed By: #### C MP ####[place] Sddvwfpsik2974 [place] [address]Dr. Ricardo Rocha Globulin (S) [Mass/Vol] 5.2 g/dL Normal [facility] Comment on above: Performed By: #### C MP ####[place] Eaqtrskmlg5634 [place] [address]Dr. Ricardo Rocha Glucose [Mass/Vol] 146 mg/dL Critically high 74-106 [facility] Comment on above: Performed By: #### C MP ####[place] Xtvcwiiioc6707 [place] [address]Dr. Ricardo Rocha Potassium [Moles/Vol] 3.1 mmol/L Critically low 3.5-5.1 The [place] Comment on above: Performed By: #### C MP ####[place] Yrdbqgtesg7773 [place] [address]Dr. Ricardo Rocha Protein [Mass/Vol] 7.1 g/dL Normal 6.4-8.2 [facility] Comment on above: Performed By: #### C MP ####[place] Qmwmfoualp[address] [place], [place] [address]Dr. Ricardo Rocha Sodium [Moles/Vol] 140 mmol/L Normal 136-145 [facility] Comment on above: Performed By: #### C MP ####[place] Trettbocvf[address] [place], [place] [address]Dr. Ricardo Rocha Urea nitrogen [Mass/Vol] 30.0 mg/dL Critically high 7.0-18.0 [facility] Comment on above: Performed By: #### C MP ####[place] Uljhjthsks[address] [place], [place] [address]Dr. Ricardo Rocha Urea nitrogen/Creatinine [Mass ratio] 15.2 mg/mg Normal [facility] Comment on above: Performed By: #### C MP ####[place] Hcjqascmky[address] [place], [place] [address]Dr. Ricardo Rocha CBC W MANUAL DIFFon 06-11-20 22 ATYPICAL LYMPH # Normal [facility] Comment on above: Performed By: #### C BCMAN ####[place] Nkaxyslilc[address] [place], [place] [address]Dr. Ricardo Rocha ATYPICAL LYMPH % Normal [facility] Comment on above: Performed By: #### C BCMAN ####[place] Cehispxgqi159[address] [place], [place] [address]Dr. Ricardo Rocha BAND # 1.1 103/ul Critically high 0.0-0.3 [facility] Comment on above: Performed By: #### C BCMAN ####[place] Ptddajtigr7240 [place] [address]Dr. Ricardo Rocha BAND % 12 % Critically high 0-5 [facility] Comment on above: Performed By: #### C BCMAN ####[place] Ykuqrrovou5608 [place] [address]Dr. Ricardo Rocha BASOM # 0.00 103/ul Normal 0.00-0.10 [facility] [place] Comment on above: Performed By: #### C BCMAN ####[place] Gqoetygfxa2205 [place] [address]Dr. Ricardo Rocha BASOM % 0.0 % Critically low 0.2-2.0 [facility] Comment on above: Performed By: #### C BCMAN ####[place] Siugmkxdfl[address] [place], [place] [address]Dr. Ricardo Rocha BLAST # Normal [facility] [place] Comment on above: Performed By: #### C BCRED ####[place] Grususynwk16[address] [place], [place] [address]Dr. Ricardo Rocha BLAST % Normal [facility] [place] Comment on above: Performed By: #### C BCRED ####[place] Afuyushbua62[address] [place], [place] [address]Dr. Ricardo Rocha CORRECTED WBC Normal 4.0-11.0 [facility] Comment on above: Performed By: #### C BCRED ####[place] Owkquompuw67[address] [place], [place] [address]Dr. Ricardo Rocha EOS # 0.00 103/ul Normal 0.00-0.70 [facility] [place] Comment on above: Performed By: #### C BCMAN ####[place] Ikqdagnwls7107 [place] [address]Dr. Ricardo Rocha EOS% 0.0 % Critically low 0.9-7.0 [facility] Comment on above: Performed By: #### C BCMAN ####[place] Kilwqteofo[address] [place], [place] [address]Dr. Ricardo Rocha HCT 32.6 % Critically low 36.0-48.0 [facility] Comment on above: Performed By: #### C BCMAN ####[place] Apfhcmslbk8702 [place], [place] [address]Sw. Ricardo Rocha HGB 10.5 g/dl Critically low 12.0-16.0 [facility] Comment on above: Performed By: #### C DWAINE ####[place] Rkthnafqdl0286 [place], [place] [address]Bj. Ricardo Rocha LYMPHM # 0.46 103/ul Critically low 1.20-3.80 [facility] Comment on above: Performed By: #### C DWAINE ####[place] Ktpudplvse9088 [place], [place] [address]Rw. Ricardo Rocha LYMPHM% 5.0 % Critically low 20.5-60.0 [facility] Comment on above: Performed By: #### C DWAINE ####[place] Ciebdkbwjd6210 [place], [place] [address]Ye. Ricardo Rocha MCH 25.3 pg Critically low 26.7-34.0 [facility] Comment on above: Performed By: #### C DWAINE ####[place] Ualyrmtkig1533 [place], [place] [address]Ca. Ricardo Rocha MCHC 32.2 g/dl Normal 29.9-35.2 [facility] Comment on above: Performed By: #### C DWAINE ####[place] Nwzdvnwzeg8415 [place], [place] [address]Lv. Ricardo Rocha MCV 78.6 fL Critically low 81.0-99.0 [facility] Comment on above: Performed By: #### C DWAINE ####[place] Pnymeuutpl5450 [place], [place] [address]Sy. Ricardo Rocha METAMYELOCYTE # Normal [facility] Comment on above: Performed By: #### C DWAINE ####[place] Eygjeanjti1057 [place] [id number]. Ricardo Rocha METAMYELOCYTE % Normal [facility] Comment on above: Performed By: #### C DWAINE ####[place] Lemvhxxkdd2683 [place] [address]Dr. Ricardo Rocha MONOM# 0.28 103/ul Critically low 0.30-0.80 [facility] Comment on above: Performed By: #### C DWAINE ####[place] Xvnitvvrds3692 [place] [address]Dr. Ricardo Rocha MONOM% 3.0 % Normal 1.7-12.0 [facility] Comment on above: Performed By: #### C DWAINE ####[place] Nipkybjhnk7984 [place] [address]Dr. Ricardo Rocha MPV 11.4 fL Normal 9.5-13.5 [facility] Comment on above: Performed By: #### C DWAINE ####[place] Xutomkxlfj[address] [place], [place] [address]Dr. Ricardo Aj MYELOCYTE # Normal [facility] Comment on above: Performed By: #### C DWAINE ####[place] Bedoicjatf[address] [place], [place] [address]Dr. Ricardo Aj MYELOCYTE % Normal [facility] Comment on above: Performed By: #### C DWAINE ####[place] Wizydvdfhc2734 [place] [address]Dr. Ricardo Rocha NRBC Normal [facility] Comment on above: Performed By: #### C DWAINE ####[place] Iauxmeacfj6669 [place] [phone]. Ricardo Rocha PLT 154 103/ul Normal 150-450 [facility] Comment on above: Performed By: #### C DWAINE ####[place] Ldppbozjzj8507 [place] [phone]. Ricardo Rocha RBC 4.15 106/ul Critically low 4.20-5.40 [facility] Comment on above: Performed By: #### C DWAINE ####[place] Uxauzfrngv1288 [place] [address]Dr. Nanomarcial Aj RDW 12.8 % Normal 11.0-15.0 [facility] Comment on above: Performed By: #### C DWAINE ####[place] Wuooncwjqh9[address] [place], [place] [address]Dr. Ricardo Rocha SEG # 7.36 103/ul Critically high 1.40-6.50 [facility] Comment on above: Performed By: #### C BCMAN ####[place] Kertbxltdl9396 [place], [place] [address]Ie. Ricardo Rocha SEG % 80.0 % Critically high 43.0-75.0 [facility] Comment on above: Performed By: #### C BCMAN ####[place] Xvjsmcybwr0425 [place] [phone]. Ricardo Rocha WBC 9.2 103/ul Normal 4.0-11.0 [facility] Comment on above: Performed By: #### C BCMAN ####[place] Gepjdslejx9118 [place] [phone]. Ricardo Rocha CT HEAD WO CONon 06-11-2022 CT HEAD WO CON Normal The [facility] CULTURE ANAEROBICon 06-11-20 CULTURE ANAEROBIC Culture Observations : NO GROWTH OF ANAEROBES AT 72 HOURS. [facility] Comment on above: Performed By: #### A NACX ####[place] Obvxsonalk7276 [place] [phone]. Ricardo Rocha CULTURE ANAEROBIC Culture Observations : NO GROWTH OF ANAEROBES AT 72 HOURS. [facility] Comment on above: Performed By: #### A NACX ####[place] Sdonnnihav7816 [place] [phone]. Ricardo Rocha CULTURE BLOODon 06-11-2022 Microscopic examination of blood, culture Culture Observations: Aerobic bottle positive only. Culture Observations: No growth at 5 days in anaerobic bottle Culture Observations: See for Susceptibility testing. Isolate 1 Staphylococcus aureus Growth of Normal [facility] Comment on above: Performed By: #### B LDCX2 ####[place] Jsytjmtpr[address] [place], [place] [address]Dr. Ricardo Rocha CULTURE URINEon 06-11-2022 CULTURE URINE Culture Observations : LIGHT GROWTH OF MIXED GENITAL SHAHLA. NO POTENTIAL PATHOGENS SEEN. [facility] Comment on above: Performed By: #### U RCX ####[place] Lpodsdzvok[address] [place], [place] [address]Dr. Ricardo Aj Covid-19 PCR (CVDTBH)on 05-22 SARS-CoV-2 (COVID-19) RNA ADRIEL+probe Ql (Unsp spec) Not detected Normal NOT DETECTED [facility] Comment on above: Result Comment: When diagnostic [...] for this test is supported by the [place] of Health and Human Service's declaration that [...] be used). Performed By: #### C VDTB ####[place] Sxxiblsgby[address] [place], [place] [address]Dr. Nanomarcial Rocha ER URINE PROFILEon 2 Bilirubin Ql (U) Negative Normal NEGATIVE The [facility] Comment on above: Performed By: #### SHAYNA ELENA ####[place] Mdrzarwqdy[address] [place], [place] [address]Dr. Ricardo Rocha Clarity (U) CLEAR Normal CLEAR [facility] Comment on above: Performed By: #### JOSLYN ELENARO ####[place] Eccsejhnek[address] [place], [place] [address]Dr. Ricardo Rocha Color (U) LT. YELLOW Normal YELLOW [facility] Comment on above: Performed By: #### Jennifer HINOJOSA UMICRO ####[place] Hoglplrdns[address] [place], [place] [address]Dr. Ricardo Rocha ERUAHD A micrscopic examination will be performed if indicated. Normal [facility] Comment on above: Performed By: #### SHAYNA ELENA ####[place] Unbfduypwq9162 [place] [address]Dr. Nanomarcial Rocha Glucose Ql (U) >1000 Abnormal NEGATIVE The [facility] Comment on above: Performed By: #### JOSLYN ELENARO ####[place] Wbijwhmtfp5047 [place] [address]Dr. Ricardo Rocha Hemoglobin Ql (U) LARGE Abnormal NEGATIVE The [facility] Comment on above: Performed By: #### JOSLYN ELENARO ####[place] Zovixvuqub[address] [place], [place] [address]Dr. Ricardo Rocha Ketones Ql (U) 15 mg/dl Abnormal NEGATIVE The [facility] Comment on above: Performed By: #### JOSLYN ELENARO ####[place] Vmapeyefnd[address] [place], [place] [address]Dr. Ricardo Rocha LEUKOCYTES Negative Normal NEGATIVE [facility] Comment on above: Performed By: #### SHAYNA ELENA ####[place] Hcjxbltmof[address] [place], [place] [address]Dr. Ricardo Rocha Nitrite Ql (U) Negative Normal NEGATIVE The [facility] Comment on above: Performed By: #### SHAYNA ELENA ####[place] Dkglghpwrf[address] [place], [place] [address]Dr. Ricardo Rocha pH (U) 6.0 [pH] Normal 5-9 [facility] Comment on above: Performed By: #### SHAYNA ELENA ####[place] Asemnfqvjf[address] [place], [place] [address]Dr. Ricardo Rocha Protein (U) [Mass/Vol] 100 mg/dL Abnormal NEGATIVE/ TRACE [facility] Comment on above: Performed By: #### SHAYNA ELENA ####[place] Zmvlolblyx6[address] [place], [place] [address]Dr. Ricardo Rocha SPEC GRAVITY 1.020 Normal 1.005-<=1.02 5 [facility] Comment on above: Performed By: #### SHAYNA ELENA ####[place] Fdouperqev6391 [place] [address]Dr. Ricardo Rocha UR MICRO IND INDICATED Normal [facility] Comment on above: Performed By: #### SHAYNA ELENA ####[place] Xmuwnvmhqe9738 [place] [address]Dr. Ricardo Rocha Urobilinogen Qn (U) 0.2 {Madeleine'U}/dL Normal 0.2 - 1. 0 [facility] Comment on above: Performed By: #### SHAYNA ELENA ####[place] Mdshctobql4555 [place] [address]Dr. Ricardo Rocha GRAM STAINon 06-11-2022 DIPHTHEROIDS Normal [facility] Comment on above: Performed By: #### G STAIN ####[place] Purlilvarp[address] [place], [place] [address]Dr. Ricardo Rocha EPITHELIALS Normal [facility] Comment on above: Performed By: #### G STAIN ####[place] Kukutuqjux25[address] [place], [place] [address]Dr. Ricardo Rocha FUNGAL ELEMENTS Normal [facility] Comment on above: Performed By: #### G STAIN ####[place] Bzaxtdrbtn5[address] [place], [place] [address]Dr. Ricardo Rocha GRAM NEG BACILLI Normal The [facility] Comment on above: Performed By: #### G STAIN ####[place] Levfqgmmrl2349 [place] [address]Dr. Ricardo Rocha GRAM NEG DIPPLOCOCCI Normal [facility] Comment on above: Performed By: #### G STAIN ####[place] Vwddwetfig[address] [place], [place] [address]Dr. Ricardo Rocha GRAM POS BACILLI Normal The [facility] Comment on above: Performed By: #### G STAIN ####[place] Kdlaanrcro66[address] [place], [place] [address]Dr. Ricardo Rocha GRAM POSITIVE COCCI MANY Normal The [facility] Comment on above: Performed By: #### G STAIN ####[place] Cnunzpafsw[address] [place], [place] [address]Dr. Ricardo Rocha GRAM STAIN SOURCE Left great toe tissu e after washout-clean Normal [facility] Comment on above: Performed By: #### G STAIN ####[place] Lagjcyiign8787 [place] [phone]. Ricardo Rocha GS_DIPTH Normal [facility] Comment on above: Performed By: #### G STAIN ####[place] Cajrdmsjls0944 [place] [phone]. Ricardo Rocha WBC RARE Normal [facility] Comment on above: Performed By: #### G STAIN ####[place] Ptrifcuxkp0105 [place] [address]Dr. Ricardo Rocha DIPHTHEROIDS Normal [facility] Comment on above: Performed By: #### G STAIN ####[place] Yfyuschexn9938 [place] [address]Dr. Ricardo Rocha EPITHELIALS Normal [facility] Comment on above: Performed By: #### G STAIN ####[place] Vdxoxoqyok[address] [place], [place] [address]Dr. Ricardo Rocha FUNGAL ELEMENTS Normal [facility] Comment on above: Performed By: #### G STAIN ####[place] Nsntnygjpf[address] [place], [place] [address]Dr. Ricardo Rocha GRAM NEG BACILLI Normal The [facility] Comment on above: Performed By: #### G STAIN ####[place] Zxfmfbbuvg6524 [place] [address]Dr. Ricardo Rocha GRAM NEG DIPPLOCOCCI Normal [facility] Comment on above: Performed By: #### G STAIN ####[place] Nckrcsolqu8319 [place] [address]Dr. Ricardo Rocha GRAM POS BACILLI Normal The [facility] Comment on above: Performed By: #### G STAIN ####[place] Xlrhfqmhpw[address] [place], [place] [address]Dr. Ricardo Rocha GRAM POSITIVE COCCI RARE Normal The [facility] Comment on above: Performed By: #### G STAIN ####[place] Hfhjollgtc9252 [place] [address]Dr. Ricardo Rocha GRAM STAIN SOURCE Left great toe Normal [facility] Comment on above: Performed By: #### G STAIN ####[place] Wgybowclpl5920 [place] [address]Dr. Ricardo Rocha GS_DIPTH Normal [facility] Comment on above: Performed By: #### G STAIN ####[place] Axorxqqiye9937 [place] [address]Dr. Ricardo Rocha WBC RARE Normal [facility] Comment on above: Performed By: #### G STAIN ####[place] Rxnkwsilin3983 [place] [address]Dr. Ricardo Rocha DIPHTHEROIDS Normal [facility] Comment on above: Performed By: #### G STAIN ####[place] Kmptfniqiq34[address] [place], [place] [address]Dr. Ricardo Rocha EPITHELIALS Normal [facility] Comment on above: Performed By: #### G STAIN ####[place] Oveoboelac[address] [place], [place] [address]Dr. Ricardo Rocha FUNGAL ELEMENTS Normal [facility] Comment on above: Performed By: #### G STAIN ####[place] Tbljqxfwft9709 [place] [address]Dr. Ricardo Rocha GRAM NEG BACILLI Normal The [facility] Comment on above: Performed By: #### G STAIN ####[place] Nlmddesivb9226 [place] [address]Dr. Ricardo Rocha GRAM NEG DIPPLOCOCCI Normal [facility] Comment on above: Performed By: #### G STAIN ####[place] Mvbrswxfzs2501 [place] [address]Dr. Ricardo Rocha GRAM POS BACILLI Normal The [facility] Comment on above: Performed By: #### G STAIN ####[place] Jrdxfbtgjt6583 [place] [address]Dr. Ricardo Rocha GRAM POSITIVE COCCI FEW Normal The [facility] Comment on above: Performed By: #### G STAIN ####[place] Qwruoupdch6912 [place] [address]Dr. Ricardo Rocha GRAM STAIN SOURCE Left great toe abscess Normal [facility] Comment on above: Performed By: #### G STAIN ####[place] Zvvliqrzqc4948 [place] [address]Dr. Ricardo Rocha GS_DIPTH Normal [facility] Comment on above: Performed By: #### G STAIN ####[place] Wwvxzxqwwi6358 [place] [address]Dr. Ricardo Rocha WBC FEW Normal [facility] Comment on above: Performed By: #### G STAIN ####[place] Fswihcbbej6078 [place] [address]Dr. Ricardo Aj LACTATE/LACTIC ACIDon 2021 Lactate [Moles/Vol] 2.2 mmol/L Critically high 0.4-1.9 [facility] Comment on above: Performed By: #### L ACT ####[place] Zfzxkhoeim[address] [place], [place] [address]Dr. Nanomarcial Aj POINT OF CARE GLUCOSEon 05-22 Glucose [Mass/Vol] 133 mg/dL Critically high -[address] [place] [address] Comment on above: Performed By: #### P OCGLUC ####[place] Wsmpfjjusd9[address] [place], [place] [address]Dr. Ricardo Rocha Glucose [Mass/Vol] 215 mg/dL Critically high [address] [place] [address] Comment on above: Performed By: #### P OCGLUC ####[place] Jbtjiefyfa[address] [place], [place] [address]Dr. Ricardo Rocha Glucose [Mass/Vol] 207 mg/dL Critically high -106 [facility] Comment on above: Performed By: #### P OCGLUC ####[place] Exvqsfzsjh3549 [place] [address]Dr. Ricardo Rocha Glucose [Mass/Vol] 314 mg/dL Critically high -106 [facility] Comment on above: Performed By: #### P OCGLUC ####[place] Vxhxfhgbjs[address] [place], [place] [address]Dr. Ricardo Rocha Glucose [Mass/Vol] 496 mg/dL Critically high -106 [facility] Comment on above: Performed By: #### P OCGLUC ####[place] Donlumhlaj4839 [place] [phone]. Ricardo Rocha Glucose [Mass/Vol] 561 mg/dL Critically high 74-106 T [facility] Comment on above: Result Comment: Prev iously Confirmed Performed By: #### P OCGLUC ####[place] Xrgvdpxaax0734 [place] [address]Dr. Ricardo Rocha PROF 14(COMP METB)on 022 Albumin [Mass/Vol] 2.4 g/dL Critically low 3.4-5.0 [facility] Comment on above: Performed By: #### C MP ####[place] Hxmccmpnwo1662 [place] [address]Dr. Ricardo Rocha Albumin/Globulin [Mass ratio] 0.4 {ratio} Normal [facility] Comment on above: Performed By: #### C MP ####[place] Lxsssevyrk[address] [place], [place] [address]Dr. Ricardo Rocha ALP [Catalytic activity/Vol] 82 U/L Normal 46-116 [facility] Comment on above: Performed By: #### C MP ####[place] Ddiwreofrd85[address] [place], [place] [address]Dr. Ricardo Rocha ALT [Catalytic activity/Vol] 12 U/L Critically low 14-59 [facility] Comment on above: Performed By: #### C MP ####[place] Cijbhreebc[address] [place], [place] [address]Dr. Ricardo Rocha Anion gap [Moles/Vol] 15.1 mmol/L Normal [facility] Comment on above: Performed By: #### C MP ####[place] Wzuqwtsrtp5944 [place] [address]Dr. Ricardo Rocha AST [Catalytic activity/Vol] 14 U/L Critically low 15-37 [facility] Comment on above: Performed By: #### C MP ####[place] Gtqzbcmioa2[address] [place], [place] [address]Dr. Ricardo Rocha Bilirubin [Mass/Vol] 0.4 mg/dL Normal 0.2-1.0 [facility] Comment on above: Performed By: #### C MP ####[place] Ajtyfcquag7424 [place] [address]Dr. Ricardo Rocha Calcium [Mass/Vol] 8.8 mg/dL Normal 8.5-10.1 [facility] Comment on above: Performed By: #### C MP ####[place] Yjysgdvdxh1556 [place] [address]Dr. Ricardo Rocha Chloride [Moles/Vol] 105 mmol/L Normal 98-107 [facility] Comment on above: Performed By: #### C MP ####[place] Rovhkrhorm1318 [place] [address]Dr. Ricardo Rocha CO2 [Moles/Vol] 21.2 mmol/L Normal 21.0-32.0 [facility] Comment on above: Performed By: #### C MP ####[place] Fgcarelhge8[address] [place], [place] [address]Dr. Ricardo Rocha Creatinine [Mass/Vol] 2.03 mg/dL Critically high 0.55-1.02 [facility] Comment on above: Performed By: #### C MP ####[place] Clwgmkajol[address] [place], [place] [address]Dr. Ricardo Rocha EGFR-AF MOSOTHO 30 mL/min/1.73m2 Critically low >=60 [facility] Comment on above: Performed By: #### C MP ####[place] Whjcqcodxg2[address] [place], [place] [address]Dr. Ricardo Rocha EGFR-NON AF [place] 25 mL/min/1.73m2 Critically low >=60 [facility] Comment on above: Performed By: #### C MP ####[place] Hluzwzwkrb39[address] [place], [place] [address]Dr. Ricardo Rocha Globulin (S) [Mass/Vol] 5.7 g/dL Normal [facility] Comment on above: Performed By: #### C MP ####[place] Vwisdotfoc[address] [place], [place] [address]Dr. Ricardo Aj Glucose [Mass/Vol] 309 mg/dL Critically high 74-106 [facility] Comment on above: Performed By: #### C MP ####[place] Mfediaksxl2661 [place] [address]Dr. Ricardo Rocha Potassium [Moles/Vol] 3.3 mmol/L Critically low 3.5-5.1 [facility] Comment on above: Performed By: #### C MP ####[place] Nxcbijiwdt6897 [place] [address]Dr. Ricardo Rocha Protein [Mass/Vol] 8.1 g/dL Normal 6.4-8.2 [facility] Comment on above: Performed By: #### C MP ####[place] Abjerpnnba8828 [place] [address]Dr. Ricardo Rocha Sodium [Moles/Vol] 138 mmol/L Normal 136-145 [facility] Comment on above: Performed By: #### C MP ####[place] Zhntuwjqjp93[address] [place], [place] [address]Dr. Ricardo Rocha Urea nitrogen [Mass/Vol] 37.0 mg/dL Critically high 7.0-18.0 [facility] Comment on above: Performed By: #### C MP ####[place] Ypeeuywkyv[address] [place], [place] [address]Dr. Ricardo Rocha Urea nitrogen/Creatinine [Mass ratio] 18.2 mg/mg Normal [facility] Comment on above: Performed By: #### C MP ####[place] Rsnyahqaca22[address] [place], [place] [address]Dr. Ricardo Aj SED RATE WESTERGREN 2021 SED RATE >130 Critically high <=30 [facility] Comment on above: Performed By: #### S EDR ####[place] Hfoytsqnbh8179 [place] [address]Dr. Ricardo Aj URINE MICROSCOPIC ONLYon AMORPHOUS CRYSTALS MODERATE Normal [facility] Comment on above: Performed By: #### SHAYNA ELENA ####[place] Lbxkzwuqjs2254 [place] [address]Dr. Ricardo Rocha BACTERIA MODERATE Abnormal NONE SEEN [facility] Comment on above: Performed By: #### E JOSLYN HINOJOSARO ####[place] Ncwqxexcug8668 [place] [address]Dr. Ricardo Rocha Bacteria identified Cx Nom (U) INDICATED Normal [facility] Comment on above: Performed By: #### JOSLYN ELENARO ####[place] Fccobavmnc0039 [place] [address]Dr. Ricardo Rocha CAST NONE SEEN Normal NONE SEEN [facility] Comment on above: Performed By: #### JOSLYN ELENARO ####[place] Mctopesajl9610 [place] [address]Dr. Ricardo Rocha Crystals LM Nom (Urine sed) SEEN Abnormal NONE SEEN [facility] Comment on above: Performed By: #### JOSLYN ELENARO ####[place] Dxcnxisvve7812 [place] [address]Dr. Ricardo Rocha Epithelial cells LM Ql (Urine sed) NONE SEEN Normal NONE SEEN /RARE [facility] Comment on above: Performed By: #### JOSLYN ELENARO ####[place] Paotrmueyx01[address] [place], [place] [address]Dr. Ricardo Rocha MUCOUS NONE SEEN Normal NONE SEEN [facility] Comment on above: Performed By: #### JOSLYN ELENARO ####[place] Abftgfpqgp9700 [place] [address]Dr. Ricardo Rocha RBC 2-5 Abnormal 0-2 [facility] Comment on above: Performed By: #### JOSLYN ELENARO ####[place] Wboqcafisj[address] [place], [place] [address]Dr. Ricardo Rocha WBC 5-10 Abnormal NONE SEEN [facility] Comment on above: Performed By: #### JOSLYN ELENARO ####[place] Bfdcjwsemv[address] [place], [place] [address]Dr. Ricardo Rocha XR CHEST 1 Von 06-11-2022 XR CHEST 1 V Normal [facility] XR FOOT LT MIN 3 VIEWSon XR FOOT LT MIN 3 VIEWS Normal [facility] XR FOOT LT MIN 3 VIEWS Normal [facility] ACETONE SERUMon 06-10-2022 ACETONE Negative Normal NEGATIVE [facility] Comment on above: Performed By: #### A CETON ####[place] Hxequyepll14[address] [place], [place] [address]Dr. Ricardo Rocha AMMONIAon 06-10-2022 Ammonia (P) [Mass/Vol] ug/dL Critically low 11-32 [facility] Comment on above: Performed By: #### A MM ####[place] Rkeqtjpysl06[address] [place], [place] [address]Dr. Ricardo Rocha BLOOD CULTURE ID PANELon A. baumannii Not detected Normal NOT DETECTED [facility] Comment on above: Performed By: #### B CID2 ####[place] Oixttlvlte8[address] [place], [place] [address]Dr. Ricardo Aj Bacteriodes fragilis Not detected Normal NOT DETECTED [facility] Comment on above: Performed By: #### B CID2 ####[place] Cqmzqqgknp[address] [place], [place] [address]Dr. Ricardo Aj BCID CONTROLS PASSED Normal The [facility] Comment on above: Performed By: #### B CID2 ####[place] Otntgxxlmw9[address] [place], [place] [address]Dr. Ricardo Aj BCIDBTHD BLOOD CULTURE BOTTLE INFORMATION Normal [facility] Comment on above: Performed By: #### B CID2 ####[place] Gryletmbbz359[address] [place], [place] [address]Dr. Ricardo Aj BCIDHD1 ANTIMICROBIAL RESISTANCE GENES Normal [facility] Comment on above: Performed By: #### B CID2 ####[place] Pgxtefybvh[address] [place], [place] [address]Dr. Ricardo Rocha BCIDHD2 SEE BELOW Normal [facility] Comment on above: Result Comment: Note : Antimicrobial resitance can occur via multiple mechanisms. A Not Detected result for the [employer] antomicrobial resistance gene assays does not indicate antimicrobial susceptibility. Subculturing is required for species identification and susceptibility testing of isolates. Performed By: #### B CID2 ####[place] Ogzshgsbru[address] [place], [place] [address]Dr. Ricardo Aj BCIDHD3 Positive Normal [facility] Comment on above: Performed By: #### B CID2 ####[place] Xfhlesapzj2505 [place] [address]Dr. Ricardo Rocha BCIDHD4 Negative Normal [facility] Comment on above: Performed By: #### B CID2 ####[place] Ozzqffmyii2231 [place] [address]Dr. Ricardo Rocha BCIDHD5 YEAST Normal [facility] Comment on above: Performed By: #### B CID2 ####[place] Kekabgsnxq5072 [place] [address]Dr. Ricardo Rocha Bottle Set: Set 1 Normal [facility] Comment on above: Performed By: #### B CID2 ####[place] Onpzjfijnx[address] [place], [place] [address]Dr. Ricardo Rocha Bottle: Aerobic Normal [facility] Comment on above: Performed By: #### B CID2 ####[place] Sqiqdensbf32[address] [place], [place] [address]Dr. Yimarcial Rocha C. neoformans/gattii Not detected Normal NOT DETECTED [facility] Comment on above: Performed By: #### B CID2 ####[place] Nkykjldtzx79[address] [place], [place] [address]Dr. Ricardo [facility] Lauren albicans Not detected Normal NOT DETECTED [facility] Comment on above: Performed By: #### B CID2 ####[place] Snjhurakfu84[address] [place], [place] [address]Dr. Ricardo Rocha Lauren auris Not detected Normal NOT DETECTED [facility] Comment on above: Performed By: #### B CID2 ####[place] Evudlvhqcc7415 [place] [address]Dr. Yimarcial Rocha Lauren glabrata Not detected Normal NOT DETECTED [facility] Comment on above: Performed By: #### B CID2 ####[place] Jscwsyrkow25[address] [place], [place] [address]Dr. Ricardo Rocha Lauren Krusei Not detected Normal NOT DETECTED [facility] Comment on above: Performed By: #### B CID2 ####[place] Lijjqwrnrd[address] [place], [place] [address]Dr. Nanomarcial Aj Lauren Parapsilosis Not detected Normal NOT DETECTED [facility] Comment on above: Performed By: #### B CID2 ####[place] Dubbljixag[address] [place], [place] [address]Dr. Ricardo Aj Lauren Tropicalis Not detected Normal NOT DETECTED [facility] Comment on above: Performed By: #### B CID2 ####[place] Qtrenjstlj18[address] [place], [place] [address]Dr. Ricardo Rocha CTX-M Resistant Gene Not Applicable Normal NOT DETECTE D [facility] Comment on above: Performed By: #### B CID2 ####[place] Qwbtjtaljx[address] [place], [place] [address]Dr. Ricardo Rocha E. Cloacae complex Not detected Normal NOT DETECTED [facility] Comment on above: Performed By: #### B CID2 ####[place] Dtvgrxhimw[address] [place], [place] [address]Dr. Ricardo Rocha E. faecalis Not detected Normal NOT DETECTED [facility] Comment on above: Performed By: #### B CID2 ####[place] Vmroswjeuh[address] [place], [place] [address]Dr. Ricardo Rocha E. faecium Not detected Normal NOT DETECTED [facility] Comment on above: Performed By: #### B CID2 ####[place] Pwtmhttojp[address] [place], [place] [address]Dr. Ricardo Rocha Enterobacteriaceae Not detected Normal NOT DETECTED [facility] Comment on above: Performed By: #### B CID2 ####[place] Eveppbxkva[address] [place], [place] [address]Dr. Ricardo Rocha Escherichia coli Not detected Normal NOT DETECTED [facility] Comment on above: Performed By: #### B CID2 ####[place] Jveresnbhv69[address] [place], [place] [address]Dr. Ricardo Rocha H. influenzae Not detected Normal NOT DETECTED [facility] Comment on above: Performed By: #### B CID2 ####[place] Cqeojzsoxb[address] [place], [place] [address]Dr. Ricardo Rocha IMP Resistant Gene Not Applicable Normal NOT DETECTED [facility] Comment on above: Performed By: #### B CID2 ####[facility] Ekfrhzfako[address] [place], [place] [address]Dr. Ricardo Aj K. oxytoca Not detected Normal NOT DETECTED [facility] Comment on above: Performed By: #### B CID2 ####[facility] Mprrymlpzn[address] [place], [place] [address]Dr. Ricardo Aj K. pneumoniae Not detected Normal NOT DETECTED [facility] Comment on above: Performed By: #### B CID2 ####[facility] Kxexbscolr[address] [place], [place] [address]Dr. Ricardo Aj Klebsiella aerogenes Not detected Normal NOT DETECTED [facility] Comment on above: Performed By: #### B CID2 ####[facility] Jguaxyuqty[address] [place], [place] [address]Dr. Nanomarcial Aj KPC Resistant Gene Not Applicable Normal NOT DETECTED [facility] Comment on above: Performed By: #### B CID2 ####[facility] Taytdyfrft[address] [place], [place] [address]Dr. Nanomarcial Aj List. monocytogenes Not detected Normal NOT DETECTED [facility] Comment on above: Performed By: #### B CID2 ####[facility] Fspmxowvuy9[address] [place], [place] [address]Dr. Ricardo Aj Mcr-1 Resistant Gene Not Applicable Normal NOT DETECTE D [facility] Comment on above: Performed By: #### B CID2 ####[facility] Brfuphpiit[address] [place], [place] [address]Dr. Nanolan Rocha mecA/C Not Applicable Normal NOT DETECTED The [facility] Comment on above: Performed By: #### B CID2 ####[facility] Cijrjljblr7[address] [place], [place] [address]Dr. Nanolan Rocha mecA/C MREJ Detected Abnormal NOT DETECTED The [facility] Comment on above: Performed By: #### B CID2 ####[facility] Pcpgikjbva[address] [place], [place] [address]Dr. Ricardo Rocha N. meningitidis Not detected Normal NOT DETECTED The [facility] Comment on above: Performed By: #### B CID2 ####[facility] Yyhtkynntq64[address] [place], [place] [address]Dr. Ricardo Rocha NDM Resistant Gene Not Applicable Normal NOT DETECTED [facility] Comment on above: Performed By: #### B CID2 ####[facility] Bjhlccnoyr[address] [place], [place] [address]Dr. Ricardo Rocha Oxa-48-like Not Applicable Normal NOT DETECTED [facility] Comment on above: Performed By: #### B CID2 ####[facility] Qbityqvxbu649[address] [place], [place] [address]Dr. Ricardo Rocha Proteus Not detected Normal NOT DETECTED [facility] Comment on above: Performed By: #### B CID2 ####[facility] Eailjeshvr[address] [place], [place] [address]Dr. Ricardo oRcha Pseud. aeruginosa Not detected Normal NOT DETECTED [facility] Comment on above: Performed By: #### B CID2 ####[facility] Mqsflfdtqb[address] [place], [place] [address]Dr. Ricardo Rocha S. maltophilia Not detected Normal NOT DETECTED [facility] Comment on above: Performed By: #### B CID2 ####[facility] Oxogtzgjxt98[address] [place], [place] [address]Dr. Ricardo Rocha Salmonella Not detected Normal NOT DETECTED [facility] Comment on above: Performed By: #### B CID2 ####[facility] Pygpyrucwj85[address] [place], [place] [address]Dr. Ricardo Rocha Seratia marcescens Not detected Normal NOT DETECTED [facility] Comment on above: Performed By: #### B CID2 ####[facility] Fllsokvanx25[address] [place], [place] [address]Dr. Ricardo Rocha Site: LEFT AC IV START Normal [facility] Comment on above: Performed By: #### B CID2 ####[facility] Unyhgszzds[address] [place], [place] [address]Dr. Ricardo Rocha Staph. aureus Detected Critically abnormal NOT DETECTED [facility] Comment on above: Performed By: #### B CID2 ####[facility] Akxemjtuoa15[address] [place] [address]Dr. Ricardo Rocha Staph. epidermidis Not detected Normal NOT DETECTED [facility] Comment on above: Performed By: #### B CID2 ####[facility] Oxxtimylsb[address] [place], [place] [address]Dr. Nanomarcial Rocha Staph. lugdunensis Not detected Normal NOT DETECTED [facility] Comment on above: Performed By: #### B CID2 ####[facility] Efcwvhhzhi[address] [place], [place] [address]Dr. Ricardo Rocha Staphylococcus Detected Critically abnormal NOT DETECTED [facility] Comment on above: Performed By: #### B CID2 ####[facility] Dkfyspseiy6[address] [place], [place] [address]Dr. Ricardo Rocha Strep. agalactiae Not detected Normal NOT DETECTED [facility] Comment on above: Performed By: #### B CID2 ####[facility] Ghhledkdmd[address] [place], [place] [address]Dr. Ricardo Aj Strep. pneumoniae Not detected Normal NOT DETECTED [facility] Comment on above: Performed By: #### B CID2 ####[facility] Wsvfurcibt04[address] [place], [place] [address]Dr. Ricardo Aj Strep. pyogenes Not detected Normal NOT DETECTED The [facility] Comment on above: Performed By: #### B CID2 ####[facility] Zzsyqqjedf[address] [place], [place] [address]Dr. Rciardo Rocha Streptococcus Not detected Normal NOT DETECTED [facility] Comment on above: Performed By: #### B CID2 ####[facility] Ztvogegcfx8[address] [place], [place] [address]Dr. Ricardo Rocha Layne/B Resist. Gene Not Applicable Normal NOT DETECTED [facility] Comment on above: Performed By: #### B CID2 ####[facility] Ueirniakcy82[address] [place], [place] [address]Dr. Ricardo Rocha VIM Resistant Gene Not Applicable Normal NOT DETECTED [facility] Comment on above: Performed By: #### B CID2 ####[facility] Wlnayxsqkp7042 [place] [address]Dr. Ricardo Rocha BLOOD GASES BTYon 06-10-2022 02 MODE ROOM AIR Normal [facility] Comment on above: Performed By: #### A BG ####[facility] Zfvvmiuouj[address] [place] [address]Dr. Ricardo Rocha ALLENS TEST Positive Normal [facility] Comment on above: Performed By: #### A BG ####[facility] Qomhuhkitv4553 [place] [address]Dr. Ricardo Rocha Base excess Calc (Bld) [Moles/Vol] -4.5000 mmol/L Critically low -2.0-2.0 [facility] Comment on above: Performed By: #### A BG ####[facility] Wswmkmykak6437 [place] [address]Dr. Ricardo Rocha BIPAP PRESSURE Normal [facility] Comment on above: Performed By: #### A BG ####[facility] Romlnjuvhe[address] [place], [place] [address]Dr. Ricardo Rocha CPAP Normal [facility] Comment on above: Performed By: #### A BG ####[facility] Nkhodxuuxl[address] [place], [place] [address]Dr. Ricardo Rocha FIO2 Normal [facility] Comment on above: Performed By: #### A BG ####[facility] Rkvatlogsu3881 [place] [address]Dr. Ricardo Rocha HCO3 (Bld) [Moles/Vol] 21.4 mmol/L Critically low 22.0-26.0 [facility] Comment on above: Performed By: #### A BG ####[facility] Rttkecnmnj7731 [place] [address]Dr. Ricardo Rocha LPM Normal [facility] Comment on above: Performed By: #### A BG ####[facility] Fpzpefggwr[address] [place], [place] [address]Dr. Ricardo Rocha MINUTE VOLUME Normal The [facility] Comment on above: Performed By: #### A BG ####[facility] Cyzyjydqjw3935[address] [place], [place] [address]Dr. Ricardo Rocha Oxygen (Bld) [Partial pressure] 66.4 mm[Hg] Critically low 80.0-100.0 [facility] Comment on above: Performed By: #### A BG ####[facility] Mojctsppih9927 [place] [address]Dr. Ricardo Rocha Oxygen saturation in Blood 94.6 % Critically low 95.0-100.0 [facility] Comment on above: Performed By: #### A BG ####[facility] Enkfravcek8926 [place] [address]Dr. Ricardo Rocha PCO2 29.4 mmHg Critically low 35.0-45.0 [facility] Comment on above: Performed By: #### A BG ####[facility] Vkvrocxvpu[address] [place], [place] [address]Dr. Ricardo Rocha PEEP [facility] Comment on above: Performed By: #### A BG ####[facility] Wsbizadiiv2314[address] [place], [place] [address]DrIrina Rocha pH (Bld) 7.436 [pH] Normal 7.350-7.450 [facility] Comment on above: Performed By: #### A BG ####[facility] Cpihnkdfhr39[address] [place], [place] [address]Dr. Ricardo Rocha PIP [facility] Comment on above: Performed By: #### A BG ####[facility] Kfylfsrkxy10[address] [place], [place] [address]Dr. Ricardo Rocha PS Normal [facility] Comment on above: Performed By: #### A BG ####[facility] Olbrgadrhd[address] [place], [place] [address]Dr. Ricardo Rocha PUNCTURE SITE LR Normal [facility] Comment on above: Performed By: #### A BG ####[facility] Btmaxbgxnq[address] [place], [place] [address]Dr. Ricardo Rocha RATE Normal [facility] Comment on above: Performed By: #### A BG ####[facility] Eougvaxsjy[address] [place], [place] [address]Dr. Ricardo Rocha VENT MODE Normal [facility] Comment on above: Performed By: #### A BG ####[facility] Huifrdfwer99[address] [place] [address]Dr. Ricardo Rocha VT Normal [facility] Comment on above: Performed By: #### A BG ####[facility] Xjbxlwkbhc8998 [place] [address]Dr. Ricardo Rocha CBC W MANUAL DIFFon 06-10-20 22 ATYPICAL LYMPH # Normal [facility] Comment on above: Performed By: #### C BCMAN ####[facility] Nzfjahcgsf7370 [place] [address]Dr. Ricardo Rocha ATYPICAL LYMPH % Normal [facility] Comment on above: Performed By: #### C BCMAN ####[facility] Wmvqjeeumf[address] [place], [place] [address]Dr. Ricarod Rocha BAND # 1.3 103/ul Critically high 0.0-0.3 [facility] Comment on above: Performed By: #### C BCRED ####[facility] Ozhoyhvzdf[address] [place], [place] [address]Dr. Ricardo Rocha BAND % 12 % Critically high 0-5 [facility] Comment on above: Performed By: #### C BCRED ####[facility] Lekznycbge[address] [place], [place] [address]Dr. Ricardo Rocha BASOM # 0.00 103/ul Normal 0.00-0.10 [facility] Comment on above: Performed By: #### C BCRED ####[facility] Ddpvlrddza7[address] [place], [place] [address]Dr. Ricardo Rocha BASOM % 0.0 % Critically low 0.2-2.0 [facility] Comment on above: Performed By: #### C BCMAN ####[facility] Nzmdxofsct4[address] [place], [place] [address]Dr. Ricardo Rocha BLAST # Normal [facility] Comment on above: Performed By: #### C BCRED ####[facility] Jygiwhxnyj[address] [place], [place] [address]Dr. Ricardo Rocha BLAST % Normal [facility] Comment on above: Performed By: #### C DWAINE ####[facility] Zxrudvbcfo8032 [place] [address]Dr. Ricardo Rocha CORRECTED WBC Normal 4.0-11.0 [facility] Comment on above: Performed By: #### C DWAINE ####[facility] Idlncdzeag2943 [place] [address]Dr. Ricardo Rocha EOS # 0.00 103/ul Normal 0.00-0.70 [facility] Comment on above: Performed By: #### C DWAINE ####[facility] Llvrpyyfpz0066 [place] [address]Dr. Ricardo Rocha EOS% 0.0 % Critically low 0.9-7.0 [facility] Comment on above: Performed By: #### C DWAINE ####[facility] Bebxnncvhl9354 [place] [address]Dr. Ricardo Rocha HCT 35.5 % Critically low 36.0-48.0 [facility] Comment on above: Performed By: #### C DWAINE ####[facility] Wcpianaygb0222 [place] [address]Dr. Ricardo Rocha HGB 11.4 g/dl Critically low 12.0-16.0 [facility] Comment on above: Performed By: #### C DWAINE ####[facility] Hhytglzxyd3531 [place] [address]Dr. Ricardo Rocha HYPERSEG NEUT 3+ Normal [facility] Comment on above: Performed By: #### C DWAINE ####[facility] Jnzxtcfctm1192 [place] [address]Dr. Ricardo Rocha LYMPHM # 0.21 103/ul Critically low 1.20-3.80 [facility] Comment on above: Performed By: #### C DWAINE ####[facility] Exayfvfyjv7152 [place] [address]Dr. Ricardo Rocha LYMPHM% 2.0 % Critically low 20.5-60.0 [facility] Comment on above: Performed By: #### C DWAINE ####[facility] [address]fs[address] [place] [address]Bf. Ricardo Rocha MCH 25.3 pg Critically low 26.7-34.0 [facility] Comment on above: Performed By: #### C DWAINE ####[facility] Gcxivmqkhx8309 [place] [address]Dr. Ricardo Rocha MCHC 32.1 g/dl Normal 29.9-35.2 [facility] Comment on above: Performed By: #### C DWAINE ####[facility] Snwlhbtkny2383 [place] [address]Dr. Ricardo Rocha MCV 78.9 fL Critically low 81.0-99.0 [facility] Comment on above: Performed By: #### C DWAINE ####[facility] Vabbjlevlq[address] [place], [place] [address]Dr. Ricardo Rocha METAMYELOCYTE # Normal [facility] Comment on above: Performed By: #### C DWAINE ####[facility] Utbewtydhn[address] [place], [place] [address]Dr. Ricardo Rocha METAMYELOCYTE % Normal [facility] Comment on above: Performed By: #### C DWAINE ####[facility] Atcvwyawfl[address] [place], [place] [address]Dr. Ricardo Rocha MONOM# 0.32 103/ul Normal 0.30-0.80 [facility] Comment on above: Performed By: #### C DWAINE ####[facility] Lfmrauxbda1141 [place] [address]Dr. Ricardo Rocha MONOM% 3.0 % Normal 1.7-12.0 [facility] Comment on above: Performed By: #### C DWAINE ####[facility] Ykwelcsdzm4774 [place] [address]Dr. Ricardo Rocha MPV 10.9 fL Normal 9.5-13.5 [facility] Comment on above: Performed By: #### C DWAINE ####[facility] Xwng[address]wuda[address] [place], [place] [address]Dr. Ricardo Rocha MYELOCYTE # Normal [facility] Comment on above: Performed By: #### C DWAINE ####[facility] Yzidlvumpt6921 [place], [place] [address]Ug. Ricardo Rocha MYELOCYTE % Normal [facility] Comment on above: Performed By: #### C BCRED ####[facility] Oyqjjokugq0413 [place] [address]Dr. Ricardo Rocha NRBC Normal [facility] Comment on above: Performed By: #### C BCRED ####[facility] Xtbopenrzj9347 [place] [address]Dr. Ricardo Rocha PLT 180 103/ul Normal 150-450 [facility] Comment on above: Performed By: #### C DWAINE ####[facility] Ohwmwixhbq6464 [place] [address]Dr. Ricardo Rocha RBC 4.50 106/ul Normal 4.20-5.40 [facility] Comment on above: Performed By: #### C DWAINE ####[facility] Vkggexpeoa7408 [place] [address]Dr. Ricardo Rocha RDW 12.8 % Normal 11.0-15.0 [facility] Comment on above: Performed By: #### C DWAINE ####[facility] Kezkfoqtnk3804 [place] [address]Dr. Ricardo Rocha SEG # 8.71 103/ul Critically high 1.40-6.50 [facility] Comment on above: Performed By: #### C DWAINE ####[facility] Hfpjtxkxdu5193 [place] [address]Dr. Ricardo Rocha SEG % 83.0 % Critically high 43.0-75.0 [facility] Comment on above: Performed By: #### C DWAINE ####[facility] Idltktpbjl4087 [place] [address]Dr. Ricardo Rocha TOXIC GRANULATION 2+ Normal [facility] Comment on above: Performed By: #### C DWAINE ####[facility] Ljqpkyouyy7730 [place] [address]Dr. Ricardo Rocha WBC 10.5 103/ul Normal 4.0-11.0 [facility] Comment on above: Performed By: #### C DWAINE ####[facility] Ydhlbcsmku8043 [place] [address]Dr. Ricardo Rocha CULTURE BLOODon 06-10-2022 Microscopic examination of blood, culture Culture Observations: Positive blood culture. Pediatric bottle. Culture Observations: Please refer to for susceptibility testing. Isolate 1 Staphylococcus aureus Growth of Normal [facility] Comment on above: Performed By: #### B LDCX2 ####[facility] Brhfrnuizo8303 [place] [address]Dr. Ricardo Rocha LACTATE/LACTIC ACIDon 2021 Lactate [Moles/Vol] 1.9 mmol/L Normal 0.4-1.9 [facility] Comment on above: Performed By: #### L ACT ####[facility] Qinsyusuuh[address] [place], [place] [address]Dr. Nanomarcial Rocha LIPASEon 06-10-2022 Lipase [Catalytic activity/Vol] 164.0 U/L Normal 73.0-393.0 [facility] Comment on above: Performed By: #### H STROPN, LIPA, CMP, TSH ####[facility] Srkujlrxzq3654 [place] [address]Dr. Ricardo Rocha POINT OF CARE GLUCOSEon 05-22 Glucose [Mass/Vol] 583 mg/dL Critically high 74-106 T [facility] Comment on above: Result Comment: Resu lt Not Confirmed Performed By: #### P OCGLUC ####[facility] Khdvuugynt[address] [place], [place] [address]Dr. Ricardo Rocha PROF 14(COMP METB)on 022 Albumin [Mass/Vol] 3.0 g/dL Critically low 3.4-5.0 [facility] Comment on above: Performed By: #### H STROPN, LIPA, CMP, TSH ####[facility] Fxeapcslyy6498 [place] [address]Dr. Ricardo Rocha Albumin/Globulin [Mass ratio] 0.5 {ratio} Normal [facility] Comment on above: Performed By: #### H STROPN, LIPA, CMP, TSH ####[facility] Zlazfmccri0294 [place] [address]Dr. Ricardo Rocha ALP [Catalytic activity/Vol] 116 U/L Normal 46-116 [facility] Comment on above: Performed By: #### H STROPN, LIPA, CMP, TSH ####[facility] Rzwdlgkddp6563 [place] [address]Dr. Ricardo Rocha ALT [Catalytic activity/Vol] 15 U/L Normal 14-59 [facility] Comment on above: Performed By: #### H STROPN, LIPA, CMP, TSH ####[facility] Gsbcapwrnk6185 [place] [address]Dr. Ricardo Rocha Anion gap [Moles/Vol] 15.7 mmol/L Normal [facility] Comment on above: Performed By: #### H STROPN, LIPA, CMP, TSH ####[facility] Npslasdidd[address] [place], [place] [address]Dr. Ricardo Rocha AST [Catalytic activity/Vol] 16 U/L Normal 15-37 [facility] Comment on above: Performed By: #### H STROPN, LIPA, CMP, TSH ####[facility] Qvuzkfyctx4912 [place] [address]Dr. Ricardo Rocha Bilirubin [Mass/Vol] 0.5 mg/dL Normal 0.2-1.0 [facility] Comment on above: Performed By: #### H STROPN, LIPA, CMP, TSH ####[facility] Ncpngbswtc[address] [place], [place] [address]Dr. Ricardo Rocha Calcium [Mass/Vol] 9.4 mg/dL Normal 8.5-10.1 [facility] Comment on above: Performed By: #### H STROPN, LIPA, CMP, TSH ####[facility] Aateqaheen6616 [place] [address]Dr. Ricardo Rocha Chloride [Moles/Vol] 95 mmol/L Critically low 98-107 [facility] Comment on above: Performed By: #### H STROPN, LIPA, CMP, TSH ####[facility] Kgrdyfxzfd9607 [place] [address]Dr. Ricardo Rocha CO2 [Moles/Vol] 22.1 mmol/L Normal 21.0-32.0 [facility] Comment on above: Performed By: #### H STROPN, LIPA, CMP, TSH ####[facility] Rcpwzqkkue6373 [place] [address]Dr. Ricardo Rocha Creatinine [Mass/Vol] 2.23 mg/dL Critically high 0.55-1.02 [facility] Comment on above: Performed By: #### H STROPN, LIPA, CMP, TSH ####[facility] Wcfrtgnbcb0834 [place] [address]Dr. Ricardo Rocha EGFR-AF MOSOTHO 27 mL/min/1.73m2 Critically low >=60 [facility] Comment on above: Performed By: #### H STROPN, LIPA, CMP, TSH ####[facility] Zvdbinbjrn8192 [place] [address]Dr. Ricardo Rocha EGFR-NON AF MOSOTHO 22 mL/min/1.73m2 Critically low >=60 [facility] Comment on above: Performed By: #### H STROPN, LIPA, CMP, TSH ####[facility] Catqsuvxka1515 [place] [address]Dr. Ricardo Rocha Globulin (S) [Mass/Vol] 6.5 g/dL Normal [facility] Comment on above: Performed By: #### H STROPN, LIPA, CMP, TSH ####[facility] Pduepdbncy4616 [place] [address]Dr. Ricardo Rocha Glucose [Mass/Vol] 593 mg/dL Critically high 74-106 T [facility] Comment on above: Performed By: #### H STROPN, LIPA, CMP, TSH ####[facility] Roxapoltwk5980 [place] [address]Dr. Ricardo Rocha Potassium [Moles/Vol] 3.8 mmol/L Normal 3.5-5.1 [facility] Comment on above: Performed By: #### H STROPN, LIPA, CMP, TSH ####[facility] Apxiensrow1609 [place] [address]Dr. Ricardo Rocha Protein [Mass/Vol] 9.5 g/dL Critically high 6.4-8.2 T [facility] Comment on above: Performed By: #### H STROPN, LIPA, CMP, TSH ####[facility] Ckchlyvumz7148 [place] [address]Dr. Ricardo Rocha Sodium [Moles/Vol] 129 mmol/L Critically low 136-145 Th [facility] Comment on above: Performed By: #### H STROPN, LIPA, CMP, TSH ####[facility] Degzfxevhz7224 [place] [address]Dr. Ricardo Rocha Urea nitrogen [Mass/Vol] 40.0 mg/dL Critically high 7.0-18.0 [facility] Comment on above: Performed By: #### H STROPN, LIPA, CMP, TSH ####[facility] Qhiwzvleuo[address] [place], [place] [address]Dr. Ricardo Rocha Urea nitrogen/Creatinine [Mass ratio] 17.9 mg/mg Normal [facility] Comment on above: Performed By: #### H STROPN, LIPA, CMP, TSH ####[facility] Gjpxqnsipx[address] [place], [place] [address]Dr. Ricardo Rocha PROTIMEon 06-10-2022 INR Coag (PPP) [Relative time] 1.00 {INR} Normal [facility] Comment on above: Performed By: #### P TT, PT ####[facility] Laflbvjykt[address] [place], [place] [address]Dr. Ricardo Rocha INR GUIDELINES SEE BELOW Normal [facility] Comment on above: Result Comment: AMBROSIO RED INR: 2.0 - 3.0 CONDITIONS NOT LISTED BELOW 2.5 - 3.5 FOR PROSTHETIC HEART VALVE REPLACEMENT 2.5 - 3.5 RECURRENT THROMBOSIS Performed By: #### P TT, PT ####[facility] Tqzbukbqsf[address] [place], [place] [address]Dr. Ricardo Rocha PT Coag (PPP) [Time] 10.8 s Normal 9.0-11.6 [facility] Comment on above: Performed By: #### P TT, PT ####[facility] Zbmmzlshpm[address] [place], [place] [address]Dr. Ricardo Rocha PTTon 06-10-2022 aPTT Coag (Bld) [Time] 31.7 s Normal 22.3-36.2 [facility] Comment on above: Performed By: #### P TT, PT ####[facility] Hjwkrsetyy9499 [place] [id number]. Ricardo Rocha TROPONIN, HIGH SENSITIVITYon 06-10-2022 HSTROP 30.9 pg/mL Normal 4.0-51.3 [facility] Comment on above: Result Comment: CUT- OFF POINTS HAVE BEEN ESTABLISHED BASED ON THE FOURTH UNIVERSAL DEFINITIONS OF MYOCARDIALINFARCTION. THE UPPER REFERENCE LIMIT (URL) OF TROPONIN, DEFINED THE 99TH PERCENTILE OFcTnI DISTRIBUTION IN A REFERENCE POPULATION, HAS BEEN CONFIRMED THE DECISION THRESHOLDFOR AK DIAGNOSIS. Performed By: #### H STROPN, LIPA, CMP, TSH ####[facility] Udlebwcwed7908 [place] [address]Dr. Ricardo Aj TSHon 06-10-2022 TSH 0.147 uIU/mL Critically low 0.358-3.740 [facility] Comment on above: Performed By: #### H STROPN, LIPA, CMP, TSH ####[facility] Sfkxmbblvr9231 [place] [address]Dr. Ricardo Rocha XR FOOT GURJIT MIN 3 VIEWSon XR FOOT GURJIT MIN 3 VIEWS Normal [facility] XR HAND RT MIN 3Von 06-02-20 XR HAND RT MIN 3V Normal [facility] CULTURE WOUNDon 05-15-2022 CULTURE WOUND Normal [facility] Comment on above: Performed By: #### W OUNDCX ####[facility] Ydorsxwdfz7427 [place] [address]Dr. Ricardo Rocha CBC AUTO DIFFon 2022 BASO # 0.0 103/ul Normal 0.0-0.1 [facility] Comment on above: Performed By: #### C BC ####[facility] Icgbwxdico8165 [place] [address]DrIrina Ricardo Aj Basophils/100 WBC (Bld) 0.7 % Normal 0.2-2.0 [facility] Comment on above: Performed By: #### C BC ####[facility] Kvueqxuzsk3431 [place] [address]Dr. Ricardo Rocha EO # 0.1 103/ul Normal 0.0-0.7 [facility] Comment on above: Performed By: #### C BC ####[facility] Btwrobdxyv1372 [place] [address]Dr. Ricardo Rocha Eosinophils/100 WBC (Bld) 2.1 % Normal 0.9-7.0 [facility] Comment on above: Performed By: #### C BC ####[facility] Qjzhicrtqs86[address] [place], [place] [address]Dr. Ricardo Rocha Erythrocyte distribution width (RBC) [Ratio] 13.2 % Normal 11.0-15.0 [facility] Comment on above: Performed By: #### C BC ####[facility] Cduraksegu7[address] [place], [place] [address]Dr. Ricardo Rocha Hematocrit (Bld) [Volume fraction] 36.6 % Normal 36.0-48.0 [facility] Comment on above: Performed By: #### C BC ####[facility] Jgyjkabhen0[address] [place], [place] [address]Dr. Ricardo Rocha Hemoglobin (Bld) [Mass/Vol] 11.9 g/dL Critically low 12.0-16.0 [facility] Comment on above: Performed By: #### C BC ####[facility] Kgpxzcxgmo[address] [place], [place] [address]Dr. Ricardo Rocha IG # 0.03 10e3/ul Normal 0.00-0.03 [facility] Comment on above: Performed By: #### C BC ####[facility] Eyiwmsoeip9[address] [place], [place] [address]Dr. Nanomarcial Rocha IG % 0.5 % Normal 0.0-0.5 [facility] Comment on above: Performed By: #### C BC ####[facility] Ljbimhbdck[address] [place], [place] [address]DrIrina Rocha LYMPH # 2.1 103/ul Normal 1.2-3.8 [facility] Comment on above: Performed By: #### C BC ####[facility] [address] [place] [id number]. Ricardo Aj Lymphocytes/100 WBC (Bld) 33.8 % Normal 20.5-60.0 [facility] Comment on above: Performed By: #### C BC ####[place] [address] [place] [id number] Rocha MANUAL DIFF REQ NO Normal [facility] Comment on above: Performed By: #### C BC ####[place] Kclr[address]ror[address] [place] [id number]. Nanomarcial Rocha MCH (RBC) [Entitic mass] 25.7 pg Critically low 26.7-34.0 [facility] Comment on above: Performed By: #### C BC ####[place] [address] [place], [place] [address]Dr. Ricardo Rocha MCHC (RBC) [Mass/Vol] 32.5 g/dL Normal 29.9-35.2 [facility] Comment on above: Performed By: #### C BC ####[place] [address] [place], [place] [id number] Nanomarcial Rocha MCV (RBC) [Entitic vol] 79.0 fL Critically low 81.0-99.0 [facility] Comment on above: Performed By: #### C BC ####[place] [address] [place] [address]Dr. Ricardo Rocha MONO # 0.4 103/ul Normal 0.3-0.8 [facility] Comment on above: Performed By: #### C BC ####[place] [address] [place], [place] [address]DrIrina Rocha Monocytes/100 WBC (Bld) 6.2 % Normal 1.7-12.0 [facility] Comment on above: Performed By: #### C BC ####[place] [address] [place], [place] [address]DrIrina Rocha NEUT # 3.5 103/ul Normal 1.4-6.5 [facility] Comment on above: Performed By: #### C BC ####[place] [address] [place] [address]Dr. Ricardo Rocha Neutrophils/100 WBC (Bld) 56.7 % Normal 43.0-75.0 [facility] Comment on above: Performed By: #### C BC ####[place] Fer[address]rwrrc[address] [place] [id number]. Ricardo Rocha Platelet mean volume (Bld) [Entitic vol] 10.9 fL Normal 9.5-13.5 [facility] Comment on above: Performed By: #### C BC ####[place] [address] [place] [address]Dr. Ricardo Rocha PLT 241 103/ul Normal 150-450 [facility] Comment on above: Performed By: #### C BC ####[place] [address] [place], [place] [address]Dr. Ricardo Rocha RBC 4.63 106/ul Normal 4.20-5.40 [facility] Comment on above: Performed By: #### C BC ####[place] [address] [place], [place] [address]Dr. Ricardo Rocha WBC 6.1 103/ul Normal 4.0-11.0 [facility] Comment on above: Performed By: #### C BC ####[place] [address] [place] [id number] Rocha PROF CHEM 8 (BAS METB)on Anion gap [Moles/Vol] 11.8 mmol/L Normal [facility] Comment on above: Performed By: #### B MP ####[place] [address] [place] [id number] Rocha Calcium [Mass/Vol] 9.2 mg/dL Normal 8.5-10.1 [facility] Comment on above: Performed By: #### B MP ####[place] [address] [place] [address]DrIrina Rocha Chloride [Moles/Vol] 99 mmol/L Normal 98-107 [facility] Comment on above: Performed By: #### B MP ####[place] [address] [place] [address]Dr. Ricardo Rocha CO2 [Moles/Vol] 24.7 mmol/L Normal 21.0-32.0 [facility] Comment on above: Performed By: #### B MP ####[place] [address] [place] [address]Dr. Ricardo Rocha Creatinine [Mass/Vol] 1.48 mg/dL Critically high 0.55-1.02 [facility] Comment on above: Performed By: #### B MP ####[place] [address] [place], [place] [address]Dr. Ricardo Rocha EGFR-AF MOSOTHO 43 mL/min/1.73m2 Critically low >=60 [facility] Comment on above: Performed By: #### B MP ####[place] [address] [place], [place] [address]Dr. Riacrdo Rocha EGFR-NON AF [place] 36 mL/min/1.73m2 Critically low >=60 [facility] Comment on above: Performed By: #### B MP ####[place] [address] [place], [place] [address]Dr. Ricardo Rocha Glucose [Mass/Vol] 431 mg/dL Critically high 74-106 [facility] Comment on above: Performed By: #### B MP ####[place] [address] [place], [place] [address]Dr. Ricardo Rocha Potassium [Moles/Vol] 4.5 mmol/L Normal 3.5-5.1 [facility] Comment on above: Performed By: #### B MP ####[place] [address] [place], [place] [address]Dr. Ricardo Rocha Sodium [Moles/Vol] 131 mmol/L Critically low 136-145 [facility] Comment on above: Performed By: #### B MP ####[place] [address] [place], [place] [address]Dr. Ricardo Rocha Urea nitrogen [Mass/Vol] 23.0 mg/dL Critically high 7.0-18.0 [facility] Comment on above: Performed By: #### B MP ####[place] [address] [place], [place] [address]Ne. Ricardo Rocha Urea nitrogen/Creatinine [Mass ratio] 15.5 mg/mg Normal [facility] Comment on above: Performed By: #### B MP ####[place] [address] [place], [place] [address]Yl. Ricardo Rocha XR TOES GURJIT MIN 2 Von 2021 XR TOES GURJIT MIN 2 V Normal [facility] ALLIED HEALTHon 01-21-2021 ALLIED HEALTH HNO ID: [id number] Author: RT Parveen(R) Service: ? Author Type: Route Delivery Manager Type: Allied Health Filed: 01/20/2021 10:30 PM [...] Anion gap [Moles/Vol] 7 mmol/L Low 9-18 [facility] Calcium [Mass/Vol] 8.8 mg/dL Normal 8.5-10.2 [facility] Chloride [Moles/Vol] 99 mmol/L Normal 97-105 [facility] CO2 [Moles/Vol] 25 mmol/L Normal 22-30 [facility] Creatinine [Mass/Vol] 1.51 mg/dL High 0.58-0.96 [facility] eGFR- Amer. 42 Normal [facility] eGFR-All Other Races 35 . Normal [...] ospital Comment on above: Result Comment: The [place] [employer] Association (ADA) provides guidance for cutoff [...] Standards of Medical Care in Diabetes 2016, [place] [employer]. Diabetes Care. 2016.39(Suppl 1). Potassium [Moles/Vol] 4.7 mmol/L Normal 3.7-5.1 [facility] Sodium [Moles/Vol] 131 mmol/L Low 136-144 [facility] Urea nitrogen [Mass/Vol] 42 mg/dL High 7-21 [facility] CBCon 01-21-2021 Absolute nRBC <0.01 Normal <0.01 [facility] width (RBC) [Ratio] [...] (Bld) [Entitic vol] 11.1 fL Normal 9.0-12.7 [facility] Platelets (Bld) [#/Vol] 358 10*3/uL Normal 150-400 [facility] RBC (Bld) [#/Vol] 3.89 10*6/uL Low 3.90-5.20 [facility] WBC (Bld) [#/Vol] 9.64 10*3/uL Normal 3.70-11.00 [facility] CNDSon 01-21-2021 CNDS HNO ID: [id number] Author: Inna Hansen DO Service: Hospital Medicine [...] Team: Attending Provider: Inna Hansen DO Physician Employee Counselor: Garrett Simon PA-C Consulting: Taurus Ballard MD [...] PCP: referred to a new PCP in [place]. Future Appointments Date Time Provider Department Center 01/29/2021 11:40 AM Taurus Ballard MD [facility] The patient's risk for 30-day readmission is determined using the following contributing factors: Pt variables contributing to increased readmission risk: 42 Most Recent (more content not included)... Normal [facility] MRI KIDNEY WO/W IVCONon 06-0 MRI KIDNEY WO/W IVCON * * *Final Report* * * DATE OF EXAM: Jan 20 2021 10:35PM [facility] 0721 - MRI KIDNEY WO/W IVCON / PROCEDURE REASON: Renal cyst * * * * Physician Interpretation * * * * EXAMINATION: MRI ABDOMEN WITHOUT AND WITH IV CONTRAST CLINICAL HISTORY: Renal mass characterization. TECHNIQUE: A renal MRI was performed on a MR system utilizing the torso phased-array coil. Pulse sequences included: axial precontrast T1 weighted in- and jap-xt-wleol, axial and coronal HASTE, axial DWI with [...] be communicated with the ordering provider via [employer] staff message or phone message by Imaging Support Services within 2 business days of report finalization. Algorithms for management of incidental imaging findings can be found on the [facility] Intranet Sharepoint site at: http://spo.cc.org/docu mentation/mychartlinks/ Managing%20Incidental%2 0Findi ngs%20at%20Imaging/Form s/AllItems.aspx Whiskey Proof Reader: GUILLE Transcribe Date/Time: Jan 21 2021 8:17A Dictated by : MALLORY AHN MD This examination was interpreted and the report reviewed and electronically signed by: MALLORY AHN MD on Jan 21 2021 8:49AM EST [id number] ACTIONABLE Invalid Interpretation Code [facility] Basic Metabolic Panlon 01-20 Anion gap [Moles/Vol] 11 mmol/L Normal 9-18 [facility] Calcium [Mass/Vol] 8.7 mg/dL Normal 8.5-10.2 [facility] Chloride [Moles/Vol] 97 mmol/L Normal 97-105 [facility] CO2 [Moles/Vol] 24 mmol/L Normal 22-30 [facility] Creatinine [Mass/Vol] 1.46 mg/dL High 0.58-0.96 [facility] eGFR- Amer. 44 Normal [facility] eGFR-All Other Races 36 . Normal [...] GFR. Glucose [Mass/Vol] 149 mg/dL High 74-99 [facility] Comment on above: Result Comment: The [place] Diabetes Association (ADA) provides guidance for cutoff [...] Standards of Medical Care in Diabetes 2016, [place] [employer]. Diabetes Care. 2016.39(Suppl 1). Potassium [Moles/Vol] 3.9 mmol/L Normal 3.7-5.1 [facility] Sodium [Moles/Vol] 132 mmol/L Low 136-144 [facility] Urea nitrogen [Mass/Vol] 53 mg/dL High 7-21 [facility] CBCon 01-20-2021 Absolute nRBC <0.01 Normal <0.01 [facility] E[facility]th[facility] distribution width (RBC) [Ratio] [...] (Bld) [Entitic vol] 11.1 fL Normal 9.0-12.7 [facility] Platelets (Bld) [#/Vol] 321 10*3/uL Normal 150-400 [facility] RBC (Bld) [#/Vol] 3.63 10*6/uL Low 3.90-5.20 [facility] WBC (Bld) [#/Vol] 11.05 10*3/uL High 3.70-11.00 [facility] CONSULT PROGon 01-20-2021 CONSULT PROG HNO ID: [id number] Author: Rajendra Cruz MD Service: Nephrology Author Type: Physician Type: Consult Progress Note Filed: 01/20/2021 1:44 PM Note Text: [facility] NEPHROLOGY CONSULT PROGRESS NOTE SERVICE DATE: [...] DATE: January 20, 2021 1:43 PM PHONE: [phone] FOR AFTER HOUR CONCERNS BETWEEN 7PM - 7AM CONTACT ON-CALL NEPHROLOGY STAFF [facility] THERAPY [facility] 01-20-2021 THERAPY NT HNO ID: [id number] Author: Afia Radford, PT Service: Physical Therapy Author Type: Physical Therapist Type: Therapy (PT/OT/Speech/Resp) Filed: 01/20/2021 3:32 PM Note Text: Physical Therapy Treatment SERVICE DATE: 01/20/2021 SERVICE TIME: 1330 to 1353 ROOM: [place] [address] Recommended Discharge Disposition: Home PT Recommended Discharge [...] 0 Tub/Shower Type: tub shower Laundry: basement, jkmchnly-zt-nvb Equipment Owned: Cane;Standard Walker Prior Functional Level: [...] Diagnosis: Reduced mobility-other Interventions Provided: Gait Training (10130);Therapeutic Exercise (40382) Therapeutic Exercise (26840) Treatment Minutes: 8 Pt performed in supine position: AP, QS, GS x 10 B LE, pt instructed to do every hour while awake on their own. 7 days a week, HS, hip ABD, SAQ, SLR 10-20 reps/ 2-3x/day/ 7 days/week Gait Training (88244) Treatment Minutes: 15 $ Gait Training (65701) Billed Units: 1 unit Training AND education [...] 2021 TIME: (more content not included)... Normal [facility] THERAPY NT HNO ID: [id number] Author: Heidy Wright OT/L Service: Occupational Therapy Author Type: Occupational Therapist Type: Therapy (PT/OT/Speech/Resp) Filed: 01/20/2021 12:15 PM Note Text: Occupational Therapy Treatment SERVICE DATE: 01/20/2021 SERVICE TIME: 1155 to 1205 ROOM: [place] [address] Recommended Discharge Disposition: Home OT Recommended Discharge [...] 0 Tub/Shower Type: tub shower Laundry: basement, cxsrtqga-yg-xcn Equipment Owned: Cane;Standard Walker Prior Functional Level: [...] (generalized);General symptoms and signs-other Interventions Provided: Self Jail Management (46404) Self Jail Management (52261) Treatment Minutes: 10 $ Self Jail Management (17398) Billed Units: 1 unit Training AND education provided in: Benefits of in (more content not included)... Normal [facility] THERAPY NT HNO ID: [id number] Author: KRUNAL Navarro Service: Occupational Therapy Author Type: Occupational Therapist Type: Therapy (PT/OT/Speech/Resp) Filed: 01/20/2021 8:24 AM Note Text: OCCUPATIONAL THERAPY MISSED VISIT SERVICE DATE: 01/20/2021 SERVICE TIME: 0820 to 0820 ROOM: [place] [address] Attempted Treatment. Patient not seen due to Declined. Pt states, It's too early when OT attempted to work with her. Will re-attempt as schedule permits. SIGNATURE: KRUNAL Navarro PATIENT NAME: Aislinn Wheeler DATE: January 20, 2021 TIME: 8:24 AM [facility] Basic Metabolic Panlon 01-19 Anion gap [Moles/Vol] 11 mmol/L Normal 9-18 [facility] Calcium [Mass/Vol] 8.5 mg/dL Normal 8.5-10.2 [facility] Chloride [Moles/Vol] 93 mmol/L Low 97-105 [facility] CO2 [Moles/Vol] 24 mmol/L Normal 22-30 [facility] Creatinine [Mass/Vol] 1.92 mg/dL High 0.58-0.96 [facility] eGFR- Amer. 32 Normal [facility] eGFR-All Other Races 26 . Normal [facility] Comment on above: Result Comment: eGFR [...] ospital Comment on above: Result Comment: The [place] Diabetes Association (ADA) provides guidance for cutoff [...] Standards of Medical Care in Diabetes 2016, [place] [employer]. Diabetes Care. 2016.39(Suppl 1). Potassium [Moles/Vol] 4.2 mmol/L Normal 3.7-5.1 [facility] Sodium [Moles/Vol] 128 mmol/L Low 136-144 [facility] Urea nitrogen [Mass/Vol] 77 mg/dL High 7-21 [facility] Anion gap [Moles/Vol] 11 mmol/L Normal 9-18 [facility] Calcium [Mass/Vol] 8.3 mg/dL Low 8.5-10.2 [facility] Chloride [Moles/Vol] 88 mmol/L Low 97-105 [facility] CO2 [Moles/Vol] 23 mmol/L Normal 22-30 [facility] Creatinine [Mass/Vol] 1.93 mg/dL High 0.58-0.96 [facility] eGFR- Amer. 32 Normal [facility] [...] ospital Comment on above: Result Comment: The [place] Diabetes Association (ADA) provides guidance for cutoff [...] Standards of Medical Care in Diabetes 2016, [place] [employer]. Diabetes Care. 2016.39(Suppl 1). Potassium [Moles/Vol] 3.8 mmol/L Normal 3.7-5.1 [facility] Sodium [Moles/Vol] 122 mmol/L Low 136-144 [facility] Urea nitrogen [Mass/Vol] 82 mg/dL High 7-21 [facility] CBCon 01-19-2021 Absolute nRBC <0.01 Normal <0.01 [facility] Erythrocyte distribution width (RBC) [Ratio] [...] vol] 11.2 fL Normal 9.0-12.7 [facility] Platelets (Bld) [#/Vol] 297 10*3/uL Normal 150-400 [facility] RBC (Bld) [#/Vol] 3.66 10*6/uL Low 3.90-5.20 [facility] WBC (Bld) [#/Vol] 12.14 10*3/uL High 3.70-11.00 [facility] CONSULT PROGon 01-19-2021 CONSULT PROG HNO ID: [id number] Author: Rajendra Cruz MD Service: Nephrology Author Type: Physician Type: Consult Progress Note Filed: 01/19/2021 2:40 PM Note Text: [facility] NEPHROLOGY CONSULT PROGRESS NOTE SERVICE DATE: [...] DATE: January 19, 2021 2:27 PM PHONE: [phone] FOR AFTER HOUR CONCERNS BETWEEN 7PM - 7AM CONTACT ON-CALL NEPHROLOGY STAFF Normal [facility] NUTRITIONon 01-19-2021 NUTRITION HNO ID: [id number] Author: Michelle Louis RD Service: Nutrition Therapy [...] history;Intake records;Patient/family self-report;Weight loss;Nausea;Vomiting Estimated kilocalorie needs: 8770-3666 Calorie Calculation Method: 30-35 kcals/kg Estimated protein [...] January 19, 2021 TIME: 10:59 AM PAGER: [phone] I have reviewed the nutritional assessment note documented by the architectural intern and I personally participated in the miller components. I have discussed the case and nutritional management of the patient's care. Michelle Louis MS,RD,LD,CNSC [facility] THERAPY NTon 01-19-2021 THERAPY NT HNO ID: [id number] Author: Afia Radford, PT Service: Physical Therapy Author Type: Physical Therapist Type: Therapy (PT/OT/Speech/Resp) Filed: 01/19/2021 2:57 PM Note Text: Physical Therapy Evaluation SERVICE DATE: 01/19/2021 SERVICE TIME: 1307 to 1331 ROOM: [place] [address] Recommended Discharge Disposition: Home PT Anticipated Discharge [...] 0 Tub/Shower Type: tub shower Laundry: basement, lltdxwnr-to-udo Equipment Owned: Cane;Standard Walker Prior Functional Level: [...] Diagnosis: Reduced mobility-other Interventions Provided: Evaluation;Therapeutic Exercise (10520);Gait Training (89601) $ Evaluation-Low (54190) Billed Units: 1 unit Therapeutic Exercise (54440) Treatment Minutes: 1 Patient performed in seated position: Marching, AP/HR, hip ABD, LAQ x10 B LE- instructions written on white board for pt to complete on her own. Gait Training (22045) Treatment Minutes: 8 $ Gait Training (49309) Billed Units: 1 unit Training AND education [...] Healthcare Calcium [Mass/Vol] 8.8 mg/dL Normal 8.5-10.2 [facility] Chloride [Moles/Vol] 88 mmol/L Low 97-105 [facility] CO2 [Moles/Vol] 22 mmol/L Normal 22-30 [facility] Creatinine [Mass/Vol] 2.21 mg/dL High 0.58-0.96 [facility] eGFR- Amer. 27 Normal [facility] eGFR-All Other Races 23 . Normal [...] ospital Comment on above: Result Comment: The [place] Diabetes Association (ADA) provides guidance for cutoff [...] Standards of Medical Care in Diabetes 2016, [place] [employer]. Diabetes Care. 2016.39(Suppl 1). Potassium [Moles/Vol] 3.7 mmol/L Normal 3.7-5.1 [facility] Sodium [Moles/Vol] 123 mmol/L Low 136-144 [facility] Urea nitrogen [Mass/Vol] 93 mg/dL High 7-21 [facility] Anion gap [Moles/Vol] 16 mmol/L Normal 9-18 [facility] Calcium [Mass/Vol] 9.0 mg/dL Normal 8.5-10.2 [facility] Chloride [Moles/Vol] 93 mmol/L Low 97-105 [facility] CO2 [Moles/Vol] 21 mmol/L Low 22-30 [facility] Creatinine [Mass/Vol] 2.59 mg/dL High 0.58-0.96 [facility] eGFR- Amer. 23 Normal [facility] eGFR-All Other Races 19 . [...] GFR. Glucose [Mass/Vol] 130 mg/dL High 74-99 [facility] Comment on above: Result Comment: The [place] Diabetes Association (ADA) provides guidance for cutoff [...] Standards of Medical Care in Diabetes 2016, [place] [employer]. Diabetes Care. 2016.39(Suppl 1). Potassium [Moles/Vol] 4.7 mmol/L Normal 3.7-5.1 [facility] Sodium [Moles/Vol] 130 mmol/L Low 136-144 [facility] Urea nitrogen [Mass/Vol] 97 mg/dL High 7-21 [facility] CASE MGT INIT [facility] 2020 CASE MGT INIT [facility] ID: [id number] Author: Nicol Landin RN Service: ? 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 Stated Goals: To have reduction in [...] scheduled Advance Directive: Current Advance Directive: None Bolt Labeler Attempted to Assist with AD Completion: Yes [...] and plan for meeting these needs: Patient's jsscganz-tu-yhg and son live close by and come over to help often Patient's perception of need for this admission: necessary Medication Adherance I am convinced of the importance of my prescription medication: 0 - Agree Completely I worry that my prescription medication will do more harm than good to me : 0 - Disagree Completely I feel financially burdened by my wwg-yg-ptwhrh expenses for my prescription medication:: 0 - Disagree Completely Risk Score: 0 Patient is categorized as: Low risk < 2 Are you interested in bedside delivery of your medications? Yes Is Patient Psychosocially Complex?: Yes, refer to Social Work ASSESSMENT AND PLAN: Medical Needs: Medical Needs: Two or more chronic diseases Psychosocial Needs: Psychosocial Needs: None FREEDOM OF CHOICE EXPLAINED: [place] of Choice Given: No Reason Not Given: [...] and hospitalized about 1 month ago in [place] but no resolution of her symptoms. She [...] 18, 2021 TIME: 10:51 AM PAGER/CONTACT #: [phone] Normal [facility] CBCon 01-18-2021 Absolute nRBC [...] (Bld) [Entitic vol] 10.8 fL Normal 9.0-12.7 [facility] Platelets (Bld) [#/Vol] 310 10*3/uL Normal 150-400 [facility] RBC (Bld) [#/Vol] 4.05 10*6/uL Normal 3.90-5.20 [facility] WBC (Bld) [#/Vol] 17.03 10*3/uL High 3.70-11.00 [facility] CONSULTon 01-18-2021 CONSULT HNO ID: [id number] Author: Annie Trinidad DO Service: Hypertension AND [...] no-show appointment to urology at [facility]. She also reports that she [...] included)... Normal [facility] CONSULT HNO ID: [id number] Author: Taurus Ballard MD Service: Urology Author Type: Physician Type: Consults Filed: 01/18/2021 8:27 AM Note Text: [facility] UROLOGY CONSULT NOTE [...] #### U SAUNDRA, UOSM, UCRR ####[facility] [place], [place] [phone] Magnesiumon 01-18-2021 Magnesium [Mass/Vol] 1.9 mg/dL Normal 1.7-2.3 [facility] NURSING PROGon 01-18-2021 NURSING PROG HNO ID: [id number] Author: Barbara Spicer RN Service: ? Author [...] on above: Performed By: #### O SM ####[facility] [place], [place] [phone] Osmolality, Urineon 01-19-20 21 Osmolality, Urine 273 mOsm/kg Normal 50-1200 [facility] Comment on above: Performed By: #### U SAUNDRA, UOSM, UCRR ####[facility] [place], [place] [phone] Sepsis Lactateon 01-18-2021 Sepsis Lactate 0.9 mmol/L Normal <2.1 [facility] Sodium,Urine,Randomon 2020 Sodium (U) [Moles/Vol] 32 mmol/L Normal 14-216 [facility] Comment on above: Performed By: #### U SAUNDRA, UOSM, UCRR ####[facility] [place], [place] [phone] THERAPY NTon 01-18-2021 THERAPY NT HNO ID: [id number] Author: Wendy Montes De Oca OT/Broderick Service: Occupational Therapy Author Type: Occupational Therapist Type: Therapy (PT/OT/Speech/Resp) Filed: 01/18/2021 1:10 PM Note Text: Occupational Therapy Evaluation SERVICE DATE: 01/18/2021 SERVICE TIME: 853 to 914 ROOM: [place] [address] Recommended Discharge Disposition: Home OT Recommended Discharge [...] 0 Tub/Shower Type: tub shower Laundry: basement, lhnecalb-sv-qqd Equipment Owned: Cane;Standard Walker CURRENT FUNCTIONAL STATUS: [...] and signs-other Interventions Provided: Evaluation $ Evaluation-Moderate (23715) Billed Units: 1 unit Training and education [...] DATE: January 18, 2021 TIME: 1:06 PM [facility] Urine Cultureon 01-18-2021 Bacteria identified Cx Nom (U) Sp. Request/Comment: - Specimen received in preservative Culture Result - No growth (<1,000 CFU/ml) [facility] Comment on above: Performed By: #### U RCUL ####[facility] [place], [place] [phone] Blood Cultureon 01-17-2021 Bacteria identified Cx Nom (Bld) Culture Result - No growth 5 days [facility] Comment on above: Performed By: #### B LCUL ####[facility] [address] [place], [place] [phone] C-Reactive Proteinon 021 C-Reactive Protein 32.4 mg/dL High <0.9 [facility] Comment on above: Performed By: #### W SR ####[facility] [place], [place] [phone] CBC and Differentialon 01-17 Abs Baso <0.03 Normal <0.11 [facility] Abs Eosin <0.03 Normal <0.46 [facility] Abs Stearns 0.73 k/uL Normal <0.87 [facility] Abs Neut 14.70 k/uL High 1.45-7.50 [facility] Absolute nRBC <0.01 Normal <0.01 [facility] Basophils/100 WBC (Bld) 0.1 % [...] Healthcare NRBCs 0.0 /100 WBC Normal 0 [facility] Platelet mean volume (Bld) [Entitic vol] 11.4 fL Normal 9.0-12.7 [facility] l Platelets (Bld) [#/Vol] 345 10*3/uL Normal 150-400 [facility] RBC (Bld) [#/Vol] 4.67 10*6/uL Normal 3.90-5.20 [facility] WBC (Bld) [#/Vol] 17.33 10*3/uL High 3.70-11.00 [facility] [facility] ABD/PEL WO IVCONon 2020 CT ABD/PEL WO IVCON * * *Final Report* * * DATE OF EXAM: Jan 17 2021 8:05PM [facility] 0531 - CT ABD/PEL WO IVCON / PROCEDURE REASON: Mass or lump, abdomen pelvis * * * * Physician Interpretation * * * * CT OF CHEST, ABDOMEN AND PELVIS WITHOUT CONTRAST CLINICAL HISTORY: Aspiration (accession [id number]), Mass or lump, abdomen pelvis (accession [id number]) Concern for possible source of infection vs [...] report for details. Pelvic bones are intact. Inflated Ball Molder (topogram) images: Unremarkable. IMPRESSION: Left upper lobe [...] be communicated with the ordering provider via [employer] staff message or phone message by [employer] within 2 business days of report finalization. ACTIONABLE RESULT: FOLLOW-UP Acuity: Actionable Findings: Kidneys/Ureters/Bladder /Adrenal Routing Code: GU_1 Recommendation: MRI KIDNEY WO/W IVCON Time Frame: non-urgent, but prompt follow-up. COMMUNICATION: Results will be communicated with the ordering provider via [employer] staff message or phone message by Imaging Support [employer] within 2 business days of report finalization. Algorithms for management of incidental imaging findings can be found on the [facility] Intranet Sharepoint site at: [email or web address]/ Managing%20Incidental%2 0Findi ngs%20at%20Imaging/Form s/AllItems.aspx Whiskey Proof Reader: GUILLE Transcribe Date/Time: Jan 17 2021 8:20P [...] DATE OF EXAM: Jan 17 2021 4:26PM [facility] 0504 - CT BRAIN WO IVCON [...] base and imaged soft tissues are unremarkable. Inflated Ball Molder (topogram) images: No additional findings. IMPRESSION: No acute intracranial hemorrhage or mass effect is seen Whiskey Proof Reader: GUILLE Transcribe Date/Time: Jan 17 2021 4:47P Dictated by : JOHN THAKKAR MD This examination was interpreted and the report reviewed and electronically signed by: JOHN THAKKAR MD on Jan 17 2021 4:48PM EST [id number] Normal [facility] CT CERVICAL SPINE WO IVCONon 01-17-2021 CT CERVICAL SPINE WO IVCON * * *Final Report* * * DATE OF EXAM: Jan 17 2021 4:26PM [facility] 0505 - CT CERVICAL SPINE WO [...] Counting reference: Craniocervical junction. Anatomic Variants: None. Inflated Ball Molder (topogram) images: No additional findings. Alignment: Straightening [...] vertebrae with counting from the craniocervical junction. Whiskey Proof Reader: [facility] CENTER[facility]berlyn Transcribe Date/Time: Jan 17 2021 4:49P Dictated by : JOHN THAKKAR MD This examination was interpreted and the report reviewed and electronically signed by: JOHN THAKKAR MD on Jan 17 2021 4:53PM EST [id number] Normal [facility] CT CHEST WO IVCONon 01-18-20 CT CHEST WO IVCON * * *Final Report* * * DATE OF EXAM: Jan 17 2021 8:05PM [facility] 0541 - CT CHEST WO IVCON / PROCEDURE REASON: Aspiration * * * * Physician Interpretation * * * * CT OF CHEST, ABDOMEN AND PELVIS WITHOUT CONTRAST CLINICAL HISTORY: Aspiration (accession [id number]), Mass or lump, abdomen pelvis (accession [id number]) Concern for possible source of infection vs [...] report for details. Pelvic bones are intact. Inflated Ball Molder (topogram) images: Unremarkable. IMPRESSION: Left upper lobe [...] be communicated with the ordering provider via [employer] staff message or phone message by [employer] within 2 business days of report finalization. ACTIONABLE RESULT: FOLLOW-UP Acuity: Actionable Findings: Kidneys/Ureters/Bladder /Adrenal Routing Code: GU_1 Recommendation: MRI KIDNEY WO/W IVCON Time Frame: non-urgent, but prompt follow-up. COMMUNICATION: Results will be communicated with the ordering provider via [employer] staff message or phone message by [employer] Services within 2 business days of report finalization. Algorithms for management of incidental imaging findings can be found on the [facility] Intranet Sharepoint site at: [email or web address] Managing%20Incidental%2 0Findi ngs%20at%20Imaging/Form s/AllItems.aspx Whiskey Proof Reader: GUILLE Transcribe Date/Time: Jan 17 2021 8:20P [...] DATE OF EXAM: Jan 17 2021 5:34PM [facility] 0508 - CT LUMBAR SPINE WO [...] are 5 lumbar-type vertebrae. Anatomic variant: None. Inflated Ball Molder (topogram) images: No additional findings. Alignment: Alignment [...] on 01/17/2021 6:08 PM via verbal communication. Whiskey Proof Reader: GUILLE Transcribe Date/Time: Jan 17 2021 6:05P [...] DATE OF EXAM: Jan 17 2021 5:34PM [facility] 0514 - CT THORACIC SPINE WO [...] the purposes of this report, anatomic variants: Inflated Ball Molder (topogram) images: No additional findings. Alignment: Alignment [...] and assume there are 5 lumbar-type vertebrae. Whiskey Proof Reader: PSCB Transcribe Date/Time: Jan 17 2021 6:03P Dictated by : JOHN THAKKAR MD This examination was interpreted and the report reviewed and electronically signed by: JOHN THAKKAR MD on Jan 17 2021 6:13PM EST [id number] Normal [facility] Comp Metabolic Panelon 01-17 Albumin [Mass/Vol] 3.0 g/dL Low 3.9-4.9 [facility] ALP [Catalytic activity/Vol] 162 U/L High 34-123 [facility] ALT [Catalytic activity/Vol] 7 U/L Normal 7-38 [facility] Anion gap [Moles/Vol] 17 mmol/L Normal 9-18 [facility] AST [Catalytic activity/Vol] 15 U/L Normal 13-35 [facility] Bilirubin [Mass/Vol] 0.4 mg/dL Normal 0.2-1.3 [facility] Calcium [Mass/Vol] 9.6 mg/dL Normal 8.5-10.2 [facility] Chloride [Moles/Vol] 83 mmol/L Low 97-105 [facility] CO2 [Moles/Vol] 20 mmol/L Low 22-30 [facility] ital Creatinine [Mass/Vol] 2.93 mg/dL High 0.58-0.96 [facility] eGFR- Amer. 20 Normal [facility] ospital eGFR-All Other Races 16 . Normal [...] ospital Comment on above: Result Comment: The [place] Diabetes Association (ADA) provides guidance for cutoff [...] Standards of Medical Care in Diabetes 2016, [place] [employer]. Diabetes Care. 2016.39(Suppl 1). Potassium [Moles/Vol] 5.5 mmol/L High 3.7-5.1 [facility] Protein [Mass/Vol] 9.5 g/dL High 6.3-8.0 [facility] Sodium [Moles/Vol] 120 mmol/L Low 136-144 [facility] Comment on above: Result Comment: Resu lt checked and verified Urea nitrogen [Mass/Vol] 104 mg/dL High 7-21 [facility] ED NOTEon 01-17-2021 ED NOTE HNO ID: [id number] Author: Prerna Luke RN Service: ? Author Type: Registered Nurse Type: ED Notes Filed: 01/17/2021 9:32 PM Note Text: Report called to 4E RN. Patient stable for transport at this time. [facility] ED NOTE HNO ID: [id number] Author: Prerna Luke RN Service: ? Author Type: Registered Nurse Type: ED Notes Filed: 01/17/2021 9:20 PM Note Text: 16Fr chaves inserted with 500 cc urine immediately drained. Patient tolerated well. [facility] ED NOTE HNO ID: [id number] Author: Prerna Luke RN Service: ? Author Type: Registered Nurse Type: ED Notes Filed: 01/17/2021 7:22 PM Note Text: BC obtained by lab. ABX infusing at this time. [facility] ED NOTE HNO ID: [id number] Author: Prerna Luke RN Service: ? Author Type: Registered Nurse Type: ED Notes Filed: 01/17/2021 7:06 PM Note Text: This RN and 2 medics unable to straight stick patient for blood or draw from existing IVs. Lab will draw one set of BC; GIANNI Tucker notified that only one set will be obtained. [facility] ED NOTE HNO ID: [id number] Author: Prerna Luke RN Service: ? Author Type: Registered Nurse Type: ED Notes Filed: 01/17/2021 4:25 PM Note Text: XR at bedside [facility] ED NOTE HNO ID: [id number] Author: Perrna Luke RN Service: ? Author Type: Registered Nurse Type: ED Notes Filed: 01/17/2021 4:03 PM Note Text: covid swab obtained and walked to lab. Normal [facility] ED NOTE HNO ID: [id number] Author: Bharat Patterson RN Service: ? Author [...] Reports oral intake has been poor Normal [facility] ED PROV NOTEon 01-17-2021 ED PROV NOTE HNO ID: [id number] Author: Garrett Simon PA-C Service: Emergency Medicine Author Type: Physician Employee Counselor Type: ED Provider Notes Filed: 01/17/2021 9:27 [...] Healthcare HISTORY PHYSICALon HISTORY PHYSICAL HNO ID: [id number] Author: Trevor Porras MD Service: Hospital Medicine Author Type: Physician Type: HANDP Filed: 01/17/2021 10:12 PM Note Text: DEPARTMENT OF HOSPITAL MEDICINE HISTORY AND PHYSICAL EXAM SERVICE DATE: 01/17/2021 Code Status: Not on file SERVICE TIME: 10:00 PM Primary Care Physician: No Pcp NIGHT AND WEEKEND COVERAGE: [place] COVERAGE: Days: [phone], please contact via [employer] Nights: [phone], please page [facility] Hospitalist Night coverage pager [phone] Subjective CHIEF COMPLAINT: Generalized weakness, falls HPI: [...] on above: Performed By: #### I TCOVD ####[id number] [place], [place] [phone] SARS-CoV-2 (COVID-19) RNA ADRIEL+probe Ql (Unsp spec) Negative for COVID19 (SARS CoV2) by RT-PCR or equivalent method. Normal Negative for COVID19 (SARS CoV2) by RT-PCR or equivalent method. [facility] Comment on above: Result Comment: This test was developed and its performance characteristics determined by [facility] [place]. This test has been authorized by FDA under an Emergency Use Authorization (EUA). This test has been validated in accordance with the FDA's Guidance Document Policy for Diagnostics Testing in Laboratories Certified to Perform High Complexity Testing under CLIA prior to Emergency use Authorization for Coronavirus Disease 2019 during the Public Health Emergency issued on October 19, 2019. Test performed by [facility], [facility] [place], [address], [place] [address]. Performed By: #### I TCOVD ####[address] [place], [place] [phone] Magnesiumon 01-17-2021 Magnesium [Mass/Vol] 2.0 mg/dL Normal 1.7-2.3 [facility] NT Pro BNPon 01-17-2021 PRO B Natr Peptide 394 pg/mL High <125 [facility] Sed Rate Westergrenon 2020 Sed Rate Westergren 124 mm/hr High 0-20 [facility] Comment on above: Performed By: #### W SR ####[place] [id number] [facility], [place] [phone] TSHon 01-17-2021 TSH Qn 0.615 m[IU]/L Normal 0.270-4.200 [facility] Troponin Ton 01-17-2021 Troponin T.cardiac [Mass/Vol] 0.023 ug/L Normal 0.000-0.029 [facility] Urinalysis with Microscopico n 01-17-2021 Bacteria Present Critically abnormal 0 [facility] Bilirubin, Urine Negative Normal Negative [facility] pital Cast SEE COMMENT Normal 0 [facility] Comment on above: Result Comment: 0 Clarity (U) Turbid Critically abnormal Clear [facility] Color (U) Yellow Normal Yellow [facility] Glucose Ql (U) Negative Normal Negative [facility] Hemoglobin/Blood,Ur 2+ Critically abnormal Negative [facility] Ketones Ql (U) Negative Normal Negative [facility] Leukest 3+ Critically abnormal Negative [facility] Nitrite Ql (U) Positive Critically abnormal Negative [facility] pH (U) 8.5 [pH] High 5.0-8.0 [facility] Protein, Urine 2+ Critically abnormal Negative [facility] RBC 3-5 Critically abnormal 0-3 [facility] Specific [place], Ur 1.013 Normal 1.005-1.030 [facility] Urobilinogen Qn (U) 0.2 {Madeleine'U}/dL Normal [...] on above: Performed By: #### U RCUL ####[facility] [address] [place], [place] [phone] XR CHEST 1V FRONTAL PORTon 0 01-17-2021 [...] exam with no evidence of acute disease. Whiskey Proof Reader: GUILLE Transcribe Date/Time: Jan 17 2021 4:40P Dictated by : FLASH WOODS MD This examination was interpreted and the report reviewed and electronically signed by: FLASH WOODS MD on Jan 17 2021 4:41PM EST [id number] Normal [facility] Vital Signs Date Time Vital Sign Value Performing Clinician Facility 07-03-2024 11:59-0500 Body height 152.4 cm Sweta [employer] Work Phone: [facility] 07-03-2024 11:59-0500 Body mass index (BMI) [Ratio] 23.83 kg/m2 Sweta [employer] Work Phone: [facility] 07-03-2024 11:59-0500 Body weight 55.34 kg Sweta Verhoff PA-C Work Phone: [facility] [employer] [facility] 07-03-2024 11:59-0500 Diastolic blood pressure 94 mm[Hg] Sweta Verhoff PA-C Work Phone: [facility] [employer] [facility] 07-03-2024 11:59-0500 Heart rate 80 /min Swtea Verhoff PA-C Work Phone: [facility] 07-03-2024 11:59-0500 SaO2% (BldA) [Mass fraction] 100 % Sweta Verhoff PA-C Work Phone: [facility] [employer] [facility] 07-03-2024 11:59-0500 Systolic blood pressure 144 mm[Hg] Sweta Verhoff PA-C Work Phone: [facility] 06-11-2024 11:32-0400 Body height 152.4 cm Agusto Aysha [employer]ANCE [employer] Work Phone: [facility] 06-11-2024 11:32-0400 Body mass index (BMI) [Ratio] 25.19 kg/m2 Agusto Cainz INSURANCE [employer] Work Phone: [facility] 06-11-2024 11:32-0400 Body temperature 98.1 [degF] Agusto Cainz INSURANCE VERIFICATION REP Work Phone: [facility] 06-11-2024 11:32-0400 Body weight 58.51 kg Agusto Cainz INSURANCE [employer] REP Work Phone: [facility] 06-11-2024 11:32-0400 Diastolic blood pressure 82 mm[Hg] Agusto Cainz INSURANCE VERIFICATION REP Work Phone: [facility] 06-11-2024 11:32-0400 Heart rate 75 /min Agusto Cainz INSURANCE VERIFICATION REP Work Phone: [facility] 06-11-2024 11:32-0400 Respiratory rate 18 /min Agusto Cainz INSURANCE VERIFICATION REP Work Phone: [facility] 06-11-2024 11:32-0400 SaO2% (BldA) [Mass fraction] 97 % Agusto Zapatamundo INSURANCE VERIFICATION REP Work Phone: [facility] 06-11-2024 11:32-0400 Systolic blood pressure 140 mm[Hg] Agusto Olmstead INSURANCE VERIFICATION REP Work Phone: [facility] 06-05-2024 15:05-0400 Body height 154.94 cm [facility] 06-05-2024 15:05-0400 Body mass index (BMI) [Ratio] 23.4 kg/m2 [facility] 06-05-2024 15:05-0400 Body temperature 97.6 [degF] [facility] 06-05-2024 15:05-0400 Body weight 56.3 kg [facility] 06-05-2024 15:05-0400 Diastolic blood pressure 75 mm[Hg] [facility] 06-05-2024 15:05-0400 Heart rate 86 /min [facility] 06-05-2024 15:05-0400 Respiratory rate 16 /min [facility] 06-05-2024 15:05-0400 SaO2% (BldA) [Mass fraction] 97 % [facility] 06-05-2024 15:05-0400 Systolic blood pressure 123 mm[Hg] [facility] 05-01-2024 10:45-0400 Diastolic blood pressure 96 mm[Hg] Juanito Barnard MD Work Phone: [facility] 05-01-2024 10:45-0400 Heart rate 74 /min Juanito Barnard MD Work Phone: [facility] 05-01-2024 10:45-0400 Systolic blood pressure 173 mm[Hg] Juanito Barnard MD Work Phone: [facility] 03-26-2024 10:48-0400 Body mass index (BMI) [Ratio] 24.41 kg/m2 Carmenza Nolen MD Work Phone: [facility] 03-26-2024 10:48-0400 Body weight 56.7 kg Carmenza Nolen MD Work Phone: [facility] Comment on above: [facility] 01-12-2024 13:50-0400 Diastolic blood pressure 69 mm[Hg] Taurus Ballard MD Work Phone: [facility] 01-12-2024 13:50-0400 Heart rate 75 /min Taurus Ballard MD Work Phone: [facility] 01-12-2024 13:50-0400 Systolic blood pressure 142 mm[Hg] Taurus Ballard MD Work Phone: [facility] 10-25-2023 15:12-0500 Blood Pressure Location HEIDY ARNOLD [facility] 10-25-2023 15:12-0500 Body temperature 96.8 [degF] HEIDY ARNOLD [facility] 10-25-2023 15:12-0500 Diastolic blood pressure 78 mm[Hg] HEIDY ARNOLD [facility] 10-25-2023 15:12-0500 Heart rate 86 /min HEIDY ARNOLD [facility] 10-25-2023 15:12-0500 Systolic blood pressure 122 mm[Hg] HEIDY DOMINGORY [facility] 08-01-2023 15:00-0500 Body height 154.94 cm [facility] 06-08-2023 13:00-0400 Body height 154.94 cm Sara Augustine Other [employer] Other 06-08-2023 13:00-0400 Body mass index (BMI) [Ratio] 25.37 kg/m2 Tondra Mapus Other [employer] Other 06-08-2023 13:00-0400 Body weight 60.92 kg Tondra Mapus Other [employer] Other 06-08-2023 13:00-0400 Diastolic blood pressure 66 mm[Hg] Tondra Mapus Other [employer] Other 06-08-2023 13:00-0400 Respiratory rate 18 /min Tondra Mapus Other [employer] Other 06-08-2023 13:00-0400 SaO2% (BldA) [Mass fraction] 100 % Tondra Mapus Other [employer] Other 06-08-2023 13:00-0400 Systolic blood pressure 107 mm[Hg] Tondra Mapus Other [employer] Other 05-18-2023 11:00-0400 Body height 154.94 cm Tondra Mapus Other [employer] Other 05-18-2023 11:00-0400 Body mass index (BMI) [Ratio] 24.69 kg/m2 Tondra Mapus Other [employer] Other 05-18-2023 11:00-0400 Body weight 59.29 kg Tondra Mapus Other [employer] Other 05-18-2023 11:00-0400 Diastolic blood pressure 96 mm[Hg] Tondra Mapus Other [employer] Other 09-28-2023 11:00-0400 Respiratory rate 18 /min Tondra Dumontus Other [employer] Other 05-18-2023 11:00-0400 SaO2% (BldA) [Mass fraction] 97 % Tondra Mapus Other [employer] Other 05-18-2023 11:00-0400 Systolic blood pressure 161 mm[Hg] Tondra Mapus Other [place] [employer] Other 02-22-2023 08:34-0400 Blood Pressure Location Lisa Lue [facility] 02-22-2023 08:34-0400 Diastolic blood pressure 66 mm[Hg] Lisa Lue [facility] 02-22-2023 08:34-0400 Heart rate 76 /min Lisa Lue [facility] 02-22-2023 08:34-0400 Systolic blood pressure 106 mm[Hg] Lisa Lue [facility] 12-27-2022 16:00-0400 Body height 154.94 cm Eli [employer]ince[employer] Other [facility] [employer] Other 12-27-2022 16:00-0400 Body mass index (BMI) [Ratio] 26.11 kg/m2 [employer] Other [employer] Other 12-27-2022 16:00-0400 Body temperature 96.5 [degF] Eli [employer] Other [employer] Other 12-27-2022 16:00-0400 Body weight 62.69 kg Eli Sprague Other [employer] Other 12-27-2022 16:00-0400 Diastolic blood pressure 98 mm[Hg] Eli Sprague Other [employer] Other 12-27-2022 16:00-0400 Respiratory rate 18 /min Eli Sprague Other [employer] Other 12-27-2022 16:00-0400 SaO2% (BldA) [Mass fraction] 98 % Eli Sprague Other [employer] Other 12-27-2022 16:00-0400 Systolic blood pressure 151 mm[Hg] Eli Sprague Other [place] [employer] Other 09-21-2022 08:42-0500 Blood Pressure Location Lisa Lue [facility] 09-21-2022 08:42-0500 Diastolic blood pressure 67 mm[Hg] Lisa Lue [facility] 09-21-2022 08:42-0500 Heart rate 74 /min Lisa Lue [facility] 09-21-2022 08:42-0500 Systolic blood pressure 103 mm[Hg] Lisa Lue [facility] Encounters Encounter Date Encounter Type Care Provider Facility Start: 07-15-2024 End: 07-26-2024 Sotero Barreto RN [facility] Comment on above: 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; Complex regional pain syndrome type 1 of right upper extremity Start: 07-03-2024 End: 07-03-2024 Office outpatient visit 25 minutes Sweta Li PA-C Work Phone: [facility] Comment on above: Complex regional jeffrey n syndrome type 1 of right upper extremity (Primary Dx); Encounter for long-term opiate analgesic use Start: 07-03-2024 End: 07-03-2024 ambulatory SWETA LI [facility] Start: 06-26-2024 End: 06-26-2024 Telephone encounter Adama Velasco RN Work Phone: Urology Comment on above: Director Of Rehabilitation And Wellness - [facility] the[facility]; Returning Patient's Call Start: 06-11-2024 End: 06-11-2024 Bamboo flowsheet Agusto Olmstead INSURANCE VERIFICATION REP Work Phone: [facility] Start: 06-11-2024 End: 06-11-2024 Bamboo flowsheet Agusto Olmstead NP Work Phone: [facility] Start: 06-11-2024 End: 06-11-2024 Office outpatient visit 25 minutes Agusto Olmstead NP Work Phone: [facility] Comment on above: Type 2 diabetes maria m itus with hyperglycemia, with long-term current use of insulin ([facility]) (Primary Dx); Type 2 diabetes mellitus with diabetic chronic kidney disease (CMS/HCC); Chronic kidney disease, stage 3b (HCC) (CMS/HCC); Hyperparathyroidism, unspecified (CMS/HCC); Malignant neoplasm of cervix uteri, unspecified (CMS/HCC); Rheumatoid arthritis, unspecified (CMS/HCC); Essential (primary) hypertension (CMS/HCC); 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; Iron deficiency anemia, unspecified iron deficiency anemia type; Primary hypertension (CMS/HCC); Type 2 diabetes mellitus with diabetic neuropathy, unspecified whether shelter insulin use (CMS/HCC); RSD (reflex sympathetic dystrophy); Continuous leakage of urine; 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, left, sequela (CMS/HCC); Skin lesion of face Start: 06-11-2024 End: 06-21-2024 ambulatory AGUSTO AICHHOLZ Not Available Comment on above: 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; Complex regional pain syndrome type 1 of right upper extremity Start: 06-05-2024 End: 06-05-2024 ambulatory [facility] Work Phone: Start: 06-05-2024 End: 06-05-2024 Patient encounter procedure [facility] Work Phone: Start: 05-10-2024 Non-patient / Non-visit [facility] Work Phone: Start: 05-01-2024 End: 05-06-2024 ambulatory Juanito Barnard MD Work Phone: Urology Start: 05-01-2024 End: 05-01-2024 Patient encounter procedure Juanito Barnard MD Work Phone: Urology Comment on above: Stage 3b chronic kid kurt disease (HCC) (Primary Dx); Retention of urine; Type 2 diabetes mellitus with hyperglycemia, with long-term current use of insulin (HCC); Other hydronephrosis; BURKE (stress urinary incontinence, female); Bladder compliance low Start: 04-26-2024 End: 04-27-2024 Non-patient / Non-visit [facility] Work Phone: Start: 04-24-2024 End: 04-24-2024 ambulatory [facility] Start: 04-24-2024 End: 04-24-2024 ambulatory [facility] Start: 04-16-2024 End: 04-16-2024 ambulatory AGUSTO AICHHOLZ Not Available Start: 04-15-2024 End: 04-15-2024 ambulatory [facility] Start: 04-09-2024 End: 04-09-2024 ambulatory CARMENZA NOLEN Facility:[facility] Start: 04-09-2024 End: 04-09-2024 Patient [...] of urine Start: 03-29-2024 End: 03-29-2024 ambulatory [facility] Facility:[facility] Start: 03-27-2024 ambulatory Nuria garrett APRN.CNP Work Phone: Pulmonary Medicine Start: 03-26-2024 End: 03-26-2024 ambulatory CARMENZA NOLEN Facility:[facility] Start: 03-26-2024 End: 03-26-2024 Patient encounter procedure Carmenza Nolen MD Work Phone: Urology Comment on above: Retention of urine ( Primary Dx); Screening for genitourinary condition; Type 2 diabetes mellitus with hyperglycemia, with long-term current use of insulin ([facility]); BURKE (stress urinary incontinence, female) Start: 03-16-2024 End: 03-16-2024 ambulatory JYOTHI SHELTON [facility] Start: 03-15-2024 End: 03-15-2024 ambulatory ZACKERY PEDRO [facility] Start: 02-26-2024 Telephone encounter Flavio Coon RN Ur ology Start: 02-12-2024 Telephone encounter Vonnie Wilder RN Ur ology Comment on above: Results - Ct Start: 02-01-2024 End: 02-01-2024 ambulatory [facility] Facility:[facility] Start: 02-01-2024 End: 02-01-2024 Subsequent hospital visit by physician Arrival Time Radiology Work Phone: Radiology Pet CT Comment on above: Other hydronephrosis [N13.39] Start: 01-24-2024 End: 01-24-2024 ambulatory SWETA N [facility] Start: 01-17-2024 End: 01-17-2024 ambulatory AGUSTO AICHHOLZ Not Available Start: 01-12-2024 End: 01-12-2024 Patient encounter procedure Taurus Ballard MD Work Phone: Urology Comment on above: Other hydronephrosis (Primary Dx); Screening for genitourinary condition Start: 01-12-2024 End: 01-12-2024 ambulatory TAURUS BALLARD Facility:[facility] Start: 12-21-2023 End: 12-21-2023 ambulatory AGUSTO AICHHOLZ Not Available Start: 12-13-2023 End: 12-13-2023 ambulatory [facility] Start: 11-16-2023 End: 11-16-2023 ambulatory AGUSTO AICHHOLZ Not Available Start: 11-06-2023 Sotero Barreto RN [facility] Comment on above: 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; Complex regional pain syndrome type 1 of right upper extremity Start: 11-02-2023 ambulatory PA-C HEIDY ARNOLD F acility:[facility] [place] Start: 10-25-2023 End: 10-26-2023 ambulatory PA-C HEIDY ARNOLD Facility:[facility] Start: 10-25-2023 End: 10-25-2023 Patient encounter procedure HEIDY ARNOLD [facility] Start: 10-14-2023 End: 10-14-2023 ambulatory KATEY DIAMOND [facility] Start: 10-13-2023 End: 10-13-2023 ambulatory ZACKERY PEDRO [facility] Start: 10-11-2023 End: 10-11-2023 ambulatory AGUSTO AICHHOLZ Not Available Start: 10-11-2023 Patient encounter procedure Agusto Aichholz INSURANCE VERIFICATION REP Work Phone: [facility] Start: 10-10-2023 Refill [facility]usto Heberjuliette [facility] Comment on above: 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; Complex regional pain syndrome type 1 of right upper extremity Start: 09-29-2023 End: 09-29-2023 ambulatory ZACKERY PEDRO [facility] Start: 09-29-2023 End: 09-29-2023 ambulatory Drew Esqueda Research Coordinator [facility] Provider Adult Comment on above: [facility] IRB# [phone] Start: 09-28-2023 E-mail encounter fro m caregiver Drew Esqueda Research Coordinator [facility] Start: 09-27-2023 Telephone encounter Drew bourne Research Coordinator [facility] Provider Adult Comment on above: Research F/U Start: 09-26-2023 Telephone encounter Drew bourne Research Coordinator [facility] Provider Adult Comment on above: Research F/U Start: 09-12-2023 End: 09-13-2023 ambulatory PA-C HEIDY ARNOLD Facility:[facility] Start: 09-12-2023 End: 09-12-2023 Patient encounter procedure HEIDY ARNOLD [facility] Start: 09-07-2023 Refill Yesenia Burnett RN [facility] Comment on above: 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 Start: 09-05-2023 End: 09-05-2023 ambulatory Tondra Juliaus Other [facility] Other Start: 09-05-2023 Telephone encounter Tondra Mapus [facility] Start: 08-09-2023 End: 08-09-2023 ambulatory [facility] Start: 08-09-2023 End: 08-09-2023 ambulatory [facility] Start: 08-01-2023 End: 08-01-2023 Patient encounter procedure [facility] Nephrology Michael Work Phone: Start: 07-18-2023 End: 07-19-2023 ambulatory PROMISE ARNOLD [facility] Start: 07-05-2023 End: 07-05-2023 Orders Only Taurus Ballard MD Work Phone: Urology Comment on above: Kidney cyst, acquire d (Primary Dx) Start: 07-05-2023 Telephone encounter Eli Sprague [facility] Start: 06-28-2023 End: 06-29-2023 ambulatory [facility] Start: 06-28-2023 End: 06-28-2023 Patient encounter procedure Lisa Porras [facility] Start: 06-26-2023 End: 06-26-2023 ambulatory Tondra Mapus Other [facility] Other Start: 06-26-2023 Telephone encounter Tondra Mapus [facility] Start: 06-23-2023 Telephone encounter Heidy harris RN Urology Comment on above: Surgical Followup Start: 06-22-2023 End: 06-23-2023 ambulatory TAURUS BALLARD Facility:[facility] Start: 06-19-2023 ambulatory Taurus newton MD Work Phone: Urology Comment on above: Aislinn casas g procedure Start: 06-15-2023 Telephone encounter Vonnie Wilder RN Ur ology Comment on above: Pre-Op Teaching Start: 06-12-2023 End: 06-12-2023 ambulatory Tondra Mapus Other [facility] Other Start: 06-12-2023 Telephone encounter Tondra Mapus [facility] Start: 06-08-2023 End: 06-08-2023 Lab Drop off HEIDY ARNOLD [facility] Start: 06-08-2023 End: 06-08-2023 Patient encounter procedure AGUSTO Walter OLMSTEAD [facility] Start: 06-08-2023 (PUMP/CGM) Pump / Sensor Sara Augustine [facility] Start: 06-08-2023 End: 06-09-2023 ambulatory [facility] [employer] Other Start: 05-22-2023 End: 05-23-2023 ambulatory Lisa Porras Facility:[facility] Start: 05-22-2023 End: 05-22-2023 Patient encounter procedure Lisa Porras [facility] Start: 05-18-2023 End: 05-18-2023 ambulatory Sohaildra Juliaus Other [facility] Other Start: 05-18-2023 [facility] visit new patient [facility] Start: 05-18-2023 Telephone encounter Taurus rees MD Work Phone: Urology Comment on above: Follow Up Start: 05-17-2023 End: 05-17-2023 ambulatory TAURUS BALLARD Facility:[facility] Start: 05-11-2023 End: 2023 ambulatory PA-C HEIDY ARNOLD Facility:[facility] Start: 05-11-2023 End: 05-11-2023 Lab Drop off HEIDY ARNOLD [facility] Start: 05-03-2023 End: 05-04-2023 ambulatory Lisa Porras Facility[facility] Start: 04-18-2023 End: 04-19-2023 ambulatory PA-C HEIDY ARNOLD Facility:[facility] Start: 04-18-2023 End: 04-19-2023 ambulatory Lisa MIrina Vern Facility:[facility] Start: 04-18-2023 End: 04-18-2023 Lab Drop off HEIDY ARNOLD [facility] Start: 04-18-2023 End: 04-18-2023 Patient encounter procedure Lisa PulidoIrina Sharifjennifer [facility] Start: 04-04-2023 End: 04-04-2023 ambulatory Brigette Mayankayden Other [facility] Other Start: 04-04-2023 Telephone encounter Brigette Wesley [facility] Start: 02-22-2023 End: 02-23-2023 ambulatory Lisa AshokIrina Sharifjennifer Facility:[facility] Start: 02-22-2023 End: 02-22-2023 Patient encounter procedure Lisa PulidoIrina Vern [facility] Start: 01-09-2023 End: 01-09-2023 ambulatory Azyanet Bakdis Other [facility] Other Start: 01-09-2023 Telephone encounter Azyanet Bakdis [facility] Start: 01-03-2023 End: 01-04-2023 ambulatory PRODUCT MANAGENT INTERN AGUSTO AICHHOLZ Facility:[facility] Start: 12-28-2022 End: 12-29-2022 ambulatory PRODUCT MANAGENT INTERN AGUSTO AICHHOLZ Facility:[facility] Start: 12-27-2022 End: 12-27-2022 ambulatory Aziz Bakhous Other [facility] Other Start: 12-27-2022 Office outpatient ne w 30 minutes Aziz Bakhous [facility] Start: 12-15-2022 End: 12-16-2022 ambulatory PRODUCT MANAGENT INTERN AGUSTO AICHHOLZ Facility:[facility] Start: 12-14-2022 End: 12-15-2022 ambulatory PETER D HIGHLANDER Facility:[facility] Start: 10-27-2022 End: 10-28-2022 ambulatory PRODUCT MANAGENT INTERN AGUSTO AICHHOLZ Facility:[facility] Start: 10-24-2022 End: 10-25-2022 ambulatory PRODUCT MANAGENT INTERN AGUSTO AICHHOLZ Facility:[facility] Start: 10-12-2022 End: 10-13-2022 ambulatory PRODUCT MANAGENT INTERN AGUSTO AICHHOLZ Facility:[facility] Start: 10-05-2022 End: 10-06-2022 ambulatory PRODUCT MANAGENT INTERN AGUSTO AICHHOLZ Facility:[facility] Start: 09-29-2022 End: 09-30-2022 ambulatory PRODUCT MANAGENT INTERN AGUSTO AICHHOLZ Facility:[facility] Start: 09-21-2022 End: 09-22-2022 ambulatory PETER D HIGHLANDER Facility:[facility] Start: 09-21-2022 End: 09-21-2022 Patient encounter procedure Lisa Porras [facility] Start: 09-15-2022 End: 09-16-2022 ambulatory PRODUCT MANAGENT INTERN AGUSTO AICHHOLZ Facility:[facility] Start: 09-13-2022 End: 09-13-2022 Patient encounter procedure HEIDY ARNOLD [facility] Start: 09-08-2022 End: 09-09-2022 ambulatory PRODUCT MANAGENT INTERN AGUSTO AICHHOLZ Facility:[facility] Start: 09-02-2022 End: 09-03-2022 ambulatory PETER D HIGHLANDER Facility:[facility] Start: 08-26-2022 End: 08-27-2022 ambulatory PETER D HIGHLANDER Facility:[facility] Start: 08-09-2022 End: 08-10-2022 ambulatory PETER D HIGHLANDER Facility:[facility] Start: 08-05-2022 End: 08-06-2022 ambulatory PETER D HIGHLANDER Facility:[facility] Start: 08-04-2022 End: 08-05-2022 ambulatory PETER D HIGHLANDER Facility:[facility] Start: 08-03-2022 End: 08-04-2022 ambulatory PRODUCT MANAGENT INTERN AGUSTO AICHHOLZ Facility:[facility] Start: 08-02-2022 End: 08-03-2022 ambulatory PRODUCT MANAGENT INTERN AGUSTO OLMSTEAD Facility:[facility] Start: 08-01-2022 End: 08-02-2022 ambulatory PRODUCT MANAGENT INTERN AGUSTO OLMSTEAD Facility:[facility] Start: 07-19-2022 End: 07-20-2022 ambulatory KIARA OLMSTEAD Facility:[facility] Start: 07-08-2022 End: 07-09-2022 ambulatory KIARA OLMSTEAD Facility:[facility] Start: 07-06-2022 End: 07-07-2022 ambulatory PRODUCT MANAGENT INTERN AGUSTO OLMSTEAD Facility:[facility] Start: 07-05-2022 End: 07-06-2022 ambulatory RAMON HUNTLEY Facility:[facility] Start: 06-28-2022 End: 06-29-2022 ambulatory RAMON Tillman [facility] Facility:[facility] Start: 06-24-2022 End: 06-25-2022 ambulatory RAMON Tillman [facility] Facility:[facility] Start: 06-11-2022 End: 06-16-2022 Evaluation and [...] auto w/o microscopy Bulk Order Provider Start: 04-17-2024 Mammography Agusto Kelly jeana INSURANCE VERIFICATION REP Work Phone: Start: 03-26-2024 Urnls dip stick/tabl et rgnt auto w/o microscopy Carmenza Nolen MD Work Phone: Start: 02-01-2024 Ct abdomen & pelvis w/o contrst 1/> body re Taurus Ballard MD Work Phone: Start: 02-01-2024 CREATININE BLD Taurus uribe MD Work Phone: Start: 01-12-2024 Urnls dip stick/tabl et rgnt auto w/o microscopy Taurus Ballard MD Work Phone: Start: 10-11-2023 H/O: hysterectomy History of hystere ctomy Agusto Olmstead INSURANCE VERIFICATION REP Work Phone: Start: 06-22-2023 Laparoscopic partial nephrectomy of left kidney HEIDY ARNOLD Start: 05-22-2023 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 Ricardo Rocha Start: 06-13-2022 Detachment at Left Foot, Partial 1st Ray, Open Approach KIARA OLMSTEAD Start: 06-13-2022 Microscopic examinat ion of blood, culture KIARA OLMSTEAD Comment on above: Performed By: #### B [email or web address] ####[place] [id number] [place] [id number]. Ricardo Rocha Start: 06-11-2022 Detachment at Left 1 st Toe, Complete, Open Approach KIARA OLMSTEAD Ankle region structu re (body structure) HEIDY ARNOLD Arthroscopy of knee HEIDY ARNOLD Cataract (disorder) HEIDY ARNOLD Gallbladder structur e (body structure) HEIDY ARNOLD Hysterectomy HEIDY ARNOLD Neck structure (body structure) HEIDY ARNOLD Shoulder region structure (body structure) HEIDY ARNOLD Traumatic partial amputation of left foot HEIDY ARNOLD Upper limb structure (body structure) HEIDY ARNOLD Plan of Treatment Date Care Activity Detail Author Start: 04-28-2026 Screening for malignant neoplasm of colon [facility] Start: 07-03-2025 Adult BMI Screening Adult BMI Screening [facility] Start: 07-03-2025 Tobacco Screening Tobacco Screening [facility] Start: 04-24-2025 Adult BMI Screening Adult BMI Screening [facility] Start: 04-24-2025 Tobacco Screening Tobacco Screening [facility] Start: 04-17-2025 Screening for malignant neoplasm of breast [facility] Start: 01-31-2025 Creatinine measurement Serum Creatinine [facility] Start: 01-10-2025 Pneumococcal Vaccine: 65+ Years (1 of 2 - PCV) Pneumococcal Vaccine: 65+ Years (1 of 2 - PCV) [facility] Comment on above: Postponed from 1964 (Patient Refus ed) Start: 10-23-2024 Urine screening for protein Diabetes: Urine Protein Screening [facility] Start: 10-13-2024 Tobacco Screening Tobacco Screening [facility] Start: 10-11-2024 Medicare Annual Wellness (AWV) Medicare Annual Wellness (AWV) [facility] Start: 10-09-2024 End: 10-09-2024 Patient encounter procedure 10/09/2024 11:15 AM EST Office Visit [facility] [address] [place] [id number] Sweta Li, PAJaya [address] [place] [address] [facility] Start: 09-29-2024 Tobacco Screening Tobacco Screening [facility] Start: 09-03-2024 Complete blood count Hemoglobin/Hematocrit [facility] Start: 09-03-2024 Creatinine measurement Serum Creatinine [facility] Start: 08-09-2024 Adult BMI Screening Adult BMI Screening [facility] Start: 08-09-2024 Tobacco Screening Tobacco Screening [facility] Start: 06-26-2024 End: 06-26-2024 Patient encounter procedure 06/26/2024 12:30 PM EST Office Visit [facility] [address] [place] [phone] Sweta Li PA-C [address] [place] [address] [facility] Start: 06-24-2024 End: 06-24-2024 Patient encounter procedure 06/24/2024 11:00 AM EST Office Visit [facility] [address] [place] [address] Agusto Olmstead NP [address] [place] [address] [facility] Start: 06-23-2024 Hemoglobin/Hematocrit Hemoglobin/Hematocrit [facility] Start: 06-23-2024 Serum Creatinine Serum Creatinine [facility] Start: 06-11-2024 End: 06-11-2025 Basic metabolic 1998 panel - Serum or Plasma Basic metabolic panel Lab Routine Type 2 diabetes mellitus with hyperglycemia, with long-term current use of insulin ([facility]/HCC) Expected: 06/11/2024 (Approximate), Expires: 06/11/2025 [facility] Work Phone: Comment on above: Expected: 06/11/2024 (Approximate), Expi res: 06/11/2025 Start: 06-11-2024 End: 06-11-2025 Hemoglobin A1c/Hemoglobin.total in Blood Hemoglobin A1c Lab Routine Type 2 diabetes mellitus with hyperglycemia, with long-term current use of insulin (CMS/HCC) Expected: 06/11/2024 (Approximate), Expires: 06/11/2025 [facility] Comment on above: Expected: 06/11/2024 (Approximate), Expi res: 06/11/2025 Start: 06-11-2024 End: 06-11-2024 Patient encounter procedure 06/11/2024 11:30 AM EDT Office Visit [facility] [address] [place] [address] Agusto Olmstead NP [address] [place] [address] Type 2 diabetes mellitus with diabetic chronic kidney disease (CMS/HCC); Chronic kidney disease, stage 3b (HCC) (CMS/HCC); Hyperparathyroidism, unspecified (CMS/HCC); Malignant neoplasm of cervix uteri, unspecified (CMS/HCC); Rheumatoid arthritis, unspecified (CMS/HCC) [facility] Comment on above: Type 2 diabetes mellitus with diabetic c hronic kidney disease (CMS/HCC); Chronic kidney disease, stage 3b (HCC) (CMS/HCC); Hyperparathyroidism, unspecified (CMS/HCC); Malignant neoplasm of cervix uteri, unspecified (CMS/HCC); Rheumatoid arthritis, unspecified (CMS/HCC) Start: 06-06-2024 Hemoglobin/Hematocrit Hemoglobin/Hematocrit [facility] Start: 06-06-2024 Serum Creatinine Serum Creatinine [facility] Start: 06-04-2024 Hemoglobin A1c measurement Diabetes: Hemoglobin A1C [facility] Start: 05-10-2024 End: 05-10-2024 ambulatory 05/10/2024 11:30 AM EDT [facility] Urology [address] [address] Juanito Barnard MD [address] [place] [id number] add on per staff message Urology Comment on above: add on per staff message Start: 05-01-2024 End: 07-31-2024 Basic metabolic 2000 panel - Serum or Plasma BASIC METABOLIC PANEL Lab Routine Stage 3b chronic kidney disease (HCC) Expected: 05/01/2024, Expires: 07/31/2024 [facility] Work Phone: Comment on above: Expected: 05/01/2024, Expires: Start: 05-01-2024 End: 07-31-2024 CYSTATIN C CYSTATIN C Lab Routine Stage 3b chronic kidney disease (HCC) Expected: 05/01/2024, Expires: 07/31/2024 [facility] Comment on above: Expected: 05/01/2024, Expires: Start: 05-01-2024 End: 05-01-2024 Patient encounter procedure 05/01/2024 10:00 AM EDT Office Visit Urology [address] [address] Juanito Barnard MD [address] [place] [address] discuss bladder augment per Dr. Nolen Urology Comment on above: discuss bladder augment per Dr. Nolen Start: 04-21-2024 Covid-19 Vaccine ( season) Covid-19 Vaccine () [facility] Start: 04-21-2024 COVID-19 Vaccine ( season) COVID-19 Vaccine ( season) [facility] Start: 04-21-2024 Influenza vaccination [facility] Start: 04-09-2024 End: 04-09-2024 Follow-up encounter 04/09/2024 9:30 AM EDT [facility] Urology [address] [place] [address] Carmenza Nolen MD [address] [place] [address] 1 week follow up per dr. nolen Urology Comment on above: 1 week follow up per dr. nolen Start: 04-04-2024 Hepatitis B screening Urine Albumin:Creatinine Ratio [facility] Start: 03-29-2024 End: 03-29-2024 Nursing evaluation of patient and report 03/29/2024 3:00 PM EDT Nurse Visit Urology [address] [address] [employer] [address] [place] [address] [R33.9] Retention of urine Urology Comment on above: [R33.9] Retention of urine Start: 03-26-2024 End: 03-26-2024 Patient encounter procedure 03/26/2024 11:00 AM EDT Office Visit Urology [address] [place] [address] Carmenza Nolen MD [address] [place] [address] Ballard Urology Comment on above: Follow up per Dr. 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 [facility] Comment on above: Continuous leakage of Urine Start: 01-22-2024 DIABETES SCREEN DIABETES SCREEN [facility] Start: 01-19-2024 End: 04-19-2024 CREATININE BLD CREATININE BLD Lab Routine Other hydronephrosis Expected: 01/19/2024 (Approximate), Expires: 04/19/2024 [facility] Comment on above: Expected: 01/19/2024 (Approximate), Expi res: 04/19/2024 Start: 01-19-2024 End: 02-10-2025 CT Kidney WO and W contrast IV CT UROGRAM WO/W IVCON Radiology Routine Other hydronephrosis Expected: 01/19/2024 (Approximate), Expires: 02/10/2025 [facility] Work Phone: Comment on above: Expected: 01/19/2024 (Approximate), Expi res: 02/10/2025 Start: 11-22-2023 End: 11-22-2023 Patient encounter procedure 11/22/2023 11:15 AM EDT Office Visit [facility] [address] [place] [phone] Sweta Li, PAJuan JoseC [address] [place] [address] [facility] Start: 10-25-2023 End: 10-25-2023 Patient encounter procedure 10/25/2023 12:45 PM EST [facility] [address] [place] [address] Sweta Li PA-C [address] [place], [place] [id number] [facility] Start: 10-13-2023 End: 10-13-2023 Njx anes stellate ganglion crv sympathetic INJECTION BLOCK NERVE STELLATE GANGLION NECK Complex regional pain syndrome type 1 of right upper extremity 10/13/2023 12:44 PM EST [facility] Start: 10-13-2023 End: 10-13-2023 Patient encounter procedure 10/13/2023 9:55 AM EST Appointment [facility] [address] [place] [address] Zackery Pedro MD [address] [place], [place] [id number] [facility] Start: 10-05-2023 End: 01-04-2024 Basic metabolic 2000 panel - Serum or Plasma BASIC METABOLIC PNL Lab Routine Kidney cyst, acquired Expected: 10/05/2023 (Approximate), Expires: 01/04/2024 [facility] Work Phone: Comment on above: Expected: 10/05/2023 (Approximate), Expi res: 01/04/2024 Start: 10-05-2023 End: 08-03-2024 US KIDNEY/BLADDER US KIDNEY/BLADDER Radiology Routine Kidney cyst, acquired Expected: 10/05/2023 (Approximate), Expires: 08/03/2024 [facility] Work Phone: Comment on above: Expected: 10/05/2023 (Approximate), Expi res: 08/03/2024 Start: 09-06-2023 Hemoglobin A1c measurement HbA1C [facility] Start: 09-06-2023 Hemoglobin A1c/Hemoglobin.total in Blood HbA1C [facility] Start: 08-21-2023 Advance Directive Discussion Advance Directive Discussion [facility] Start: 08-21-2023 Behavioral Health Screening Behavioral Health Screening [facility] Start: 08-21-2023 Depression Assessment Depression Assessment [facility] Start: 2023 Advance Directive Discussion Advance Directive Discussion [facility] Start: 2023 Bone Density Screening Bone Density Screening [facility] Start: 2023 Fall Risk Screening Fall Risk Screening [facility] Start: 2023 Screening for osteoporosis Bone Density Screening [facility] Start: 04-21-2023 Covid-19 Vaccine ( season) Covid-19 Vaccine ( season) [facility] Start: 04-21-2023 Covid-19 Vaccine ( season) Covid-19 Vaccine ( season) [facility] Start: 04-21-2023 Influenza vaccination [facility] Start: 08-21-2022 Depression Assessment Depression Assessment [facility] Start: 04-21-2021 Influenza [facility] Start: 2018 Hepatitis B Vaccine (1 of 3 - Risk 3-dose series) Hepatitis B Vaccine (1 of 3 - Risk 3-dose series) [facility] Start: 2018 RSV Vaccine (1 - 1-dose 60+ series) RSV Vaccine (1 - 1-dose 60+ series) [facility] Start: 2018 RSV Vaccine (1 - Risk 60-74 years 1-dose series) RSV Vaccine (1 - Risk 60-74 years 1-dose series) [facility] Start: 2008 Administration of varicella zoster vaccine Zoster (Shingles) Vaccine (1 of 2) [facility] Start: 2008 Screening for malignant neoplasm of colon [facility] Start: 2008 SHINGRIX VACCINE (1 of 2) SHINGRIX VACCINE (1 of 2) [facility] Start: 2003 Cologuard (FIT-DNA) Cologuard (FIT-DNA) [facility] Start: 2003 Colonoscopy Colonoscopy [facility] Start: 2003 Colorectal Cancer Screening Colorectal Cancer Screening [facility] Start: [address] Colonography [facility] Start: 2003 Fecal Occult Blood Fecal Occult Blood [facility] Start: 2003 LIPID SCREEN LIPID SCREEN [facility] Start: 2003 Screening for malignant neoplasm of colon [facility] Start: 2003 Sigmoidoscopy Sigmoidoscopy [facility] Start: 1998 Mammography [facility] Start: 1998 Screening for malignant neoplasm of breast Mammogram Screening [facility] Start: 1988 HPV TESTING HPV TESTING [facility] Start: 1979 PAP TESTING PAP TESTING [facility] Start: 1977 DTaP,Tdap and Td Vaccines (1 - Tdap) DTaP,Tdap and Td Vaccines (1 - Tdap) [facility] Start: 1977 Urine microalbumin profile [facility] Start: 1976 Annual PCP Team Chronic Disease Visit Annual PCP Team Chronic Disease Visit [facility] Start: 1976 Anxiety Screening Anxiety Screening [facility] Start: 1976 BP Controlled (<130/80) BP Controlled (<130/80) [facility] Start: 1976 Depression Screening Depression Screening [facility] Start: 1976 Diabetic foot examination Diabetic Foot Exam [facility] Start: 1976 Hepatitis B surface antibody level LDL Cholesterol [facility] Start: 1976 HEPATITIS C SCREENING HEPATITIS C SCREENING [facility] Start: 1976 Hepatitis C screening Hepatitis C Screening [facility] Start: 1976 HIV SCREENING HIV SCREENING [facility] Start: 1976 HIV screening HIV Screening [facility] Start: 1976 Spirometry Spirometry [facility] Start: 1970 Adult depression screening assessment DEPRESSION SCREENING [facility] Start: 1970 COVID-19 VACCINE (1) COVID-19 VACCINE (1) [facility] Start: 1968 3 comp foot exam completed Diabetic Foot Exam [facility] Start: 1968 Diabetic foot examination Diabetic Foot Exam [facility] Start: 1968 Glaucoma screening [facility] Start: 1968 Hepatitis B screening Urine Albumin:Creatinine Ratio [facility] Start: 1968 Hepatitis C antibody, confirmatory test Dilated Retinal Exam [facility] Start: 1964 Pneumococcal Vaccine: 65+ (1 - PCV) Pneumococcal Vaccine: 65+ (1 - PCV) [facility] Start: 1964 Pneumococcal Vaccine: 65+ (1 of 2 - PCV) Pneumococcal Vaccine: 65+ (1 of 2 - PCV) [facility] Start: 1958 Glaucoma screening Diabetic Ophthalmology Exam [facility] Start: 1958 Screening for malignant neoplasm of colon [facility] Start: 1958 Urine screening for protein Urine Microalbumin [facility] FLUROURODYNAMICS WITH EMG FLUROU RODYNAMICS WITH EMG Procedures Routine Retention of urine BURKE (stress urinary incontinence, female) Ordered: 03/26/2024 [facility] Work Phone: Comment on above: Ordered: 03/26/2024 Njx anes stellate ganglion crv sympathetic INJECTION BLOCK NERVE STELLATE GANGLION NECK Complex regional pain syndrome type 1 of right upper extremity [facility] Njx anes stellate ganglion crv sympathetic INJECTION BLOCK NERVE STELLATE GANGLION NECK Complex regional pain syndrome type 1 of right upper extremity [facility] Renal function 2000 panel - Serum or Plasma [facility] Immunizations Immunization Date Immunization Notes Care Provider Lukas pacheco 06-23-2022 tuberculin skin test ; purified protein derivative solution, intradermal Agusto Aichholz INSURANCE VERIFICATION REP Work Phone: [facility] 06-16-2022 tuberculin skin test ; purified protein derivative solution, intradermal Agusto Aichholz INSURANCE VERIFICATION REP Work Phone: [facility] 04-02-2021 SARS-CoV-2 (COVID-19 ) mRNA-1273 vaccine HEIDY ARNOLD [facility] 03-02-2021 Moderna SARS-CoV-2 Vaccination Agusto Aichholz INSURANCE VERIFICATION REP Work Phone: [facility] 12-07-2020 SARS-CoV-2 (COVID-19 ) mRNA-1273 vaccine HEIDY ARNOLD [facility] 06-03-2016 influenza virus vaccine, unspecified formulation HEIDY ARNOLD [facility] 06-03-2016 influenza, seasonal, injectable, preservative free Drew Esqueda Research Coordinator [facility] Payers Date Payer Category Payer Medicare HMO [employer] MEDICARE Member Subscriber Plan / Payer (Effective 2023-Present) Name: Aislinn Wheeler Relation to Subscriber: Self Name: Aislinn Wheeler Payer ID: [id number] (NAIC) Type: Not on file Address: [place] [id number] 2023 Medicare (Managed Care[facility] [id number] 2023 Private Health Insurance [id number] 2023 Self-pay 2022 Medicare [id number] 2022 Medicare [id number] .[id number] 2006 Medicare MEDICARE MEDICAR E A [id number] 2006-Present [place], [place] Medicare [id number] 2003 Worker's Comp Other Managed Care [facility] [id number] .[id number] 2003 Unknown [id number] 1959 Medicare [id number] 2.16.840.1.517103.19 1959 Unknown [id number] 1959 Unknown [id number] 1958 Unknown [id number] 2.16.840.1.985537.3.579.2 .593 1958 Unknown [id number] 2.16.840.1.025797.3.579.2 .593 1958 Unknown [id number] 2.16.840.1.168994.3.579.2 .593 1958 Unknown [id number] 2.16.840.1.175012.3.579.2 .593 1958 Unknown [id number] 2.16.840.1.156253.3.579.2 .593 1958 Unknown [id number] 2.16.840.1.901444.3.579.2 .593 1958 Unknown [id number] 2.16.840.1.327738.3.579.2 .593 1958 Unknown [id number] 2.16.840.1.657994.3.579.2 .593 1958 Unknown [id number] 2.16.840.1.408149.3.579.2 .593 1958 Unknown [id number] 2.16.840.1.793446.3.579.2 .593 1958 Unknown [id number] 2.16.840.1.859539.3.579.2 .593 1958 Unknown [id number] 2.16.840.1.087213.3.579.2 .593 1958 Unknown [id number] 2.16.840.1.991962.3.579.2 .593 1958 Unknown [id number] 2.16.840.1.008545.3.579.2 .593 1958 Unknown [id number] 2.16.840.1.349053.3.579.2 .593 1958 Unknown [id number] 2.16.840.1.395741.3.579.2 .593 1958 Unknown [id number] 2.16.840.1.632109.3.579.2 .593 1958 Unknown [id number] 2.16.840.1.256094.3.579.2 .593 1958 Unknown [id number] 2.16.840.1.587649.3.579.2 .593 1958 Unknown [id number] 2.16.840.1.283826.3.579.2 .593 1958 Unknown [id number] 2.16.840.1.183940.3.579.2 .593 1958 Unknown [id number] 2.16.840.1.826086.3.579.2 .593 1958 Unknown [id number] 2.16.840.1.684803.3.579.2 .593 1958 Unknown [id number] 2.16.840.1.776985.3.579.2 .593 1958 Unknown [id number] 2.16.840.1.655637.3.579.2 .593 1958 Unknown [id number] 2.16.840.1.906021.3.579.2 .593 1958 Unknown [id number] 2.16.840.1.017015.3.579.2 .593 1958 Unknown [id number] 2.16.840.1.755365.3.579.2 .593 1958 Unknown [id number] 2.16.840.1.158603.3.579.2 .593 1958 Unknown [id number] 2.16.840.1.612672.3.579.2 .593 1958 Unknown [id number] 2.16.840.1.472797.3.579.2 .593 1958 Unknown [id number] 2.16.840.1.314060.3.579.2 .727 1958 Unknown [id number] 2.16.840.1.723904.3.579.2 .72 1958 Unknown [id number] 2.16.840.1.678897.3.579.2 .727 1958 Unknown [id number] 2.16.840.1.825959.3.579.2 .72 1958 Unknown [id number] 2.16.840.1.205238.3.579.2 .727 1958 Unknown [id number] 2.16.840.1.309915.3.579.2 .72 1958 Unknown [id number] 2.16.840.1.702190.3.579.2 .727 1958 Unknown [id number] 2.16.840.1.964907.3.579.2 .72 1958 Unknown [id number] 2.16.840.1.532572.3.579.2 .72 1958 Unknown [id number] 2.16.840.1.224440.3.579.2 .1958 Unknown [id number] 2.16.840.1.228680.3.579.2 .1958 Unknown [id number] 2.16.840.1.208045.3.579.2 .1958 Unknown [id number] 2.16.840.1.763484.3.579.2 .1958 Unknown [id number] 2.16.840.1.852265.3.579.2 .1958 Unknown [id number] 2.16.840.1.582428.3.579.2 .1958 Unknown [id number] 2.16.840.1.571377.3.579.2 .1286 1958 Unknown [id number] 2.16.840.1.388401.3.579.2 .1258 1958 Unknown [id number] 2.16.840.1.554693.3.579.2 .1258 1958 Unknown [id number] 2.16.840.1.885437.3.579.2 .1258 1958 Unknown [id number] 2.16.840.1.891183.3.579.2 .125 1958 Unknown [id number] 2.16.840.1.704775.3.579.2 .125 1958 Unknown [id number] 2.16.840.1.359545.3.579.2 .125 1958 Unknown [id number] 2.16.840.1.113911.3.579.2 .1286 1958 Unknown [id number] 2.16.840.1.345261.3.579.2 .1285 1958 Unknown [id number] 2.16.840.1.819573.3.579.2 .1285 1958 Unknown [id number] 2.16.840.1.974811.3.579.2 .1285 1958 Unknown [id number] 2.16.840.1.889261.3.579.2 .1285 1958 Unknown [id number] 2.16.840.1.608200.3.579.2 .1285 1958 Unknown [id number] 2.16.840.1.507788.3.579.2 .1285 1958 Unknown [id number] 2.16.840.1.036873.3.579.2 .1285 1958 Unknown [id number] 2.16.840.1.355763.3.579.2 .1285 1958 Unknown [id number] 2.16.840.1.653539.3.579.2 .1285 1958 Unknown [id number] 2.16.840.1.259795.3.579.2 .1285 1958 Unknown [id number] 2.16.840.1.301373.3.579.2 .1285 1958 Unknown [id number] 2.16.840.1.842499.3.579.2 .1285 1958 Unknown [id number] 2.16.840.1.001135.3.579.2 .1285 1958 Unknown [id number] 2.16.840.1.790423.3.579.2 .1285 1958 Unknown [id number] 2.16.840.1.669828.3.579.2 .12808-21-1899 Medicare [id number] Unknown [facility] [id number] Unknown [id number] 2.16.840.1.252001.3.579.2 .531 Social History Date Type Detail Facility Start: 01-17-2021 End: 07-27-2022 Tobacco smoking status NHIS Never smoker [facility] Start: 01-17-2021 End: 07-27-2022 Tobacco use and exposure Never used [facility] Start: 01-17-2021 End: 04-09-2024 Alcohol intake Current drinker of alcohol (finding) [facility] Start: 01-17-2021 History SDOH Alcohol Frequency 1 [facility] Start: 01-17-2021 Alcohol Comment [facility] Start: 1960 [facility] Exposure to SARS-CoV -2 (event) Not sure [facility] Tobacco smoking status Never [facility] Start: 09-04-2020 End: 06-06-2023 Sex Assigned At Female [facility] Start: 09-04-2020 End: 06-06-2023 History of Social function [facility] Start: 06-06-2023 Alcohol Comment rarely--holida y or special occ [facility] Start: 08-09-2023 End: 07-03-2024 Alcohol intake Current non-drinker of alcohol (finding) [facility] Are you now , , , , never or living with a partner? [facility] How hard is it for y ou to pay for the very basics like food, housing, medical care, and heating Not very hard [facility] (I/We) worried wheradha er (my/our) food would run out before (I/we) got money to buy more. DK or Refused [facility] Start: 1960 Sex Assigned At Female F [facility] Start: 04-16-2024 End: 06-11-2024 Alcoholic beverage intake Lifetime non-drinker (finding) [facility] Within the last year , have you been afraid of your partner or ex-partner? No [facility] Are you now , , , , never or living with a partner? [facility] How often to you hav e a drink containing alcohol? Never [facility] How hard is it for y ou to pay for the very basics like food, housing, medical care, and heating Somewhat hard [facility] Do you feel stress - tense, restless, nervous, or anxious, or unable to sleep at night because your mind is troubled all the time - these days [OSQ] Very much [facility] (I/We) worried wheth er (my/our) food would run out before (I/we) got money to buy more. Never true [facility] Start: 10-11-2023 Alcohol Comment caffine: 1cup daily [facility] Start: 03-26-2015 Sex [facility] (finding) [facility] Medical Equipment Procedure Code Equipment Code Equipment Origin al Text Equipment Identifier Dates 4 times daily use [id number] Start: 10-16-2023 End: 10-15-2024 Functional Status Date Assessment Result Facility 10-25-2023 Functional Status N/A [facility] 05-22-2023 Functional Status N/A [facility] 05-11-2023 Functional Status [facility] 02-22-2023 Functional Status N/A [facility] 09-21-2022 Functional Status N/A [facility] 09-13-2022 Functional Status N/A [facility] Clinical Notes 01-17-2021 to 07-15-2024 Telephone Encounter - Asia Barreto RN - 07/15/2024 10:57 AM ESTTelephone Encounter - Asia Barreto RN - 07/15/2024 10:57 AM Zurdo Li PA-C - 07/03/2024 12:00 PM ESTPatient Instructions Note Date & Type Note Facility 07-15-2024 Miscellaneous Notes Last Office Visit: 07/03/2024 Next Office Visit: 10/09/2024 Last Urine Drug Screen: Lab Results Component Value Date BENZOSCRN Negative 08/09/2023 OARRS appropriate documented in this encounter [facility] 07-15-2024 Telephone encounter Note Last Office Visit: 07/03/2024 Next Office Visit: 10/09/2024 Last Urine Drug Screen: Lab Results Component Value Date BENZOSCRN Negative 08/09/2023 OARRS appropriate [facility] 07-03-2024 History of Presen t illness Narrative [facility] [address] [place] [place] [address] Patient: Aislinn Wheeler Sex: female : 1960 Age: 64 y.o. PCP: AGUSTO OLMSTEAD, ASHVIN-PRODUCT MANAGENT INTERN 07/03/2024 Aislinn Wheeler is here for a(n) follow up for her [facility] work injury. Patient reports she is awaiting referral to Dr. Oleary for evaluation for SCS implant. Date of onset of pain: 2002 , pain has lasted greater than 3 months. Chief Complaint Patient presents with Arm Injury HPI: Right Stellate Ganglion blocks offer 70% relief 10/15/21 Rt Stellate Ganglion w/80% relief. 05/06/22 Rt Stellate Ganglion w/90% relief 12/23/2022 Right Stellate ganglion block with 50% relief 10/13/2023 right stellate ganglion nerve block with 50% relief that lasted 1.5 weeks Arm Injury Incident onset: Many years ago. Since 2002. The incident occurred at work. 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 The pain is present in the right forearm, right hand, right fingers, right elbow, right wrist, right shoulder, left wrist, left hand, left forearm, left elbow, left fingers, left shoulder, upper right arm and upper left arm (Rt > Lt). The quality of the pain is described as burning, aching, stabbing and shooting. The pain does not radiate. The pain is at a severity of 8/10. The pain is moderate. The pain has been Constant since the incident. Associated symptoms include muscle weakness (BUE), numbness (Gurjit Fingers, Gurjit Toes) and tingling (Gurjit Hands). Pertinent negatives include no chest pain. The symptoms are aggravated by movement, lifting and palpation (sitting, lifting, lying, twisting, leaning on cart, cold/heat). Treatments tried: Tizanidine, Lyrica, Gabapentin, Long Point, Elevation, NSAIDs x 2 (Ibuprofen, Aleve), Flexeril, BioFreeze, Immobilization w/min relief, Celebrex & compound cream w/no relief, Rt Stellate Ganglion NB w/mod relief. The treatment provided moderate relief. The effect of pain on patient's ADLS: Moderate Impairment. Past Medical History: Diagnosis Date Arthritis RHEUMATOID Arthritis OSTEOARTHRITIS Asthma At risk for UTI related to indwelling catheter Broken toes 08/2022 [place]chitis [place] UTERINE Chronic kidney disease 2015 stage 3 per pt 04/05/23 COVID-19 virus infection 09/28/2021 Diabetes mellitus [place] Fibromyalgia GERD (gastroesophageal reflux disease) History of degenerative disc disease Hypertension Joint pain Lupus [place] Mitral valve prolapse Osteoarthritis Pneumonia released from hospital on 11/12/21 RSD (reflex sympathetic dystrophy) Stroke [place] Past Surgical History: Procedure Laterality Date AMPUTATION OF REPLICATED TOES Left 06/2022 ANKLE SURGERY CATARACT EXTRACTION, BILATERAL Bilateral 03/22 and 04/13 CHOLECYSTECTOMY HYSTERECTOMY INJECTION BLOCK NERVE STELLATE GANGLION NECK Right 03/15/2024 Performed by Zackery Pedro MD at [facility] INJECTION BLOCK NERVE STELLATE GANGLION NECK Right 10/13/2023 Performed by Zackery Pedro MD at [facility] INJECTION BLOCK NERVE STELLATE GANGLION NECK Right 12/23/2022 Performed by Zackery Pedro MD at [facility] INJECTION BLOCK NERVE STELLATE GANGLION NECK Right 05/06/2022 Performed by Zackery Pedro MD at [facility] INJECTION BLOCK NERVE STELLATE GANGLION NECK Right 10/15/2021 Performed by Zackery Pedro MD at [facility] INJECTION BLOCK STELLATE GANGLION N/A 02/17/2017 Performed by Zackery Pedro MD at [facility] INJECTION BLOCK STELLATE GANGLION NECK Right 06/18/2018 Performed by Zackery Pedro MD at [facility] INJECTION BLOCK STELLATE GANGLION NECK N/A 05/15/2017 Performed by Zackery Pedro MD at [facility] INJECTION BLOCK STELLATE GANGLION NECK Right Right 05/22/2020 Performed by Zackery Pedro MD at [facility] INJECTION BLOCK STELLATE GANGLION NECK Right N/A 10/04/2019 Performed by Zackery Pedro MD at [facility] INJECTION BLOCK STELLATE GANGLION NECK Right Right 05/10/2019 Performed by Zackery Pedro MD at [facility] INJECTION BLOCK STELLATE GANGLION NECK Right Right 12/31/2018 Performed by Zackery Pedro MD at [facility] INJECTION BLOCK STELLATE GANGLION NECK Right Right 10/09/2017 Performed by Zackery Pedro MD at [facility] KNEE SURGERY REMOVAL STIMULATOR SPINAL CORD N/A 12/29/2017 Performed by Zackery Pedro MD at [facility] SHOULDER SURGERY Allergies Allergen Reactions Latex Added based on information entered during case entry, please review and add reactions, type, and severity as needed Family History Problem Relation Age of Onset Heart attack Mother Stroke Mother Rheum arthritis Mother Cancer Father LUNG Social History Socioeconomic History Marital status: Spouse name: Not on file Number of children: Not on file Years of education: Not on file Highest education level: Not on file Occupational History Not on file Tobacco Use Smoking status: Never Smokeless tobacco: Never Vaping Use Vaping status: Never Used Substance and Sexual Activity Alcohol use: No Drug use: No Sexual activity: Defer Other Topics Concern Not on file Social History Narrative Not on file Social Drivers of Health Financial Resource Strain: Medium Risk (10/11/2023) [facility] Overall Financial Resource Strain (CARDIA) Difficulty of Paying Living Expenses: Somewhat hard Food Insecurity: No Food Insecurity (07/03/2024) Hunger Screening Food Insecurity - Worry: Never True Food Insecurity - Inability: Never True Transportation Needs: No Transportation Needs (10/11/2023) [facility] PRAPARE - Transportation Lack of Transportation (Medical): No Lack of Transportation (Non-Medical): No Physical Activity: Inactive (10/11/2023) [facility] from [facility] Exercise Vital Sign Days of Exercise per Week: 0 days Minutes of Exercise per Session: 0 min Stress: Stress Concern Present (10/11/2023) [facility] from [facility] [place] [facility] - Occupational Stress Questionnaire Feeling of Stress : Very much Social Connections: Socially Isolated (10/11/2023) [facility] Social Connection and Isolation Panel [NHANES] Frequency of Communication with Friends and Family: More than three times a week Frequency of Social Gatherings with Friends and Family: More than three times a week Attends Anglican Services: Never Active Member of Clubs or Organizations: No Attends Club or Organization Meetings: Never Marital Status: Interpersonal Safety: Unknown (10/12/2023) Received from [facility] Safety & Environment Fear of Current or Ex-Partner: Not on file Emotionally Abused: Not on file Physically Abused: Not on file Sexually Abused: Not on file Physically or Sexually Abused: Not on file Housing Instability: Low Risk (10/11/2023) Re[facility] from [facility] Housing Stability Vital Sign Unable to Pay for Housing in the Last Year: No Number of Places Lived in the Last Year: 1 Unstable Housing in the Last Year: No Review of Systems Constitutional: Negative for chills and fever. HENT: Negative. Eyes: Negative. Respiratory: Negative for cough and shortness of breath. Cardiovascular: Negative for chest pain. Gastrointestinal: Positive for diarrhea. Endocrine: Negative. Genitourinary: Positive for frequency and urgency. Musculoskeletal: Gurjit Arms Skin: Negative. Allergic/Immunologic: Negative. Neurological: Positive for tingling (Gurjit Hands) and numbness (Gurjit Fingers, Gurjit Toes). Hematological: Negative. Psychiatric/Behavioral: Negative. Vital Signs: BP (!) 144/94 (BP Site: Left Arm) Pulse 80 Ht 152.4 cm (5') Wt 55.3 kg (122 lb) SpO2 100% BMI 23.83 kg/m Physical Exam: GENERAL - Healthy patient that appears stated age. HEENT - Normocephalic / Atraumatic, Extraoccular movements intact, trachea midline, thyroid within normal limits. CV - pulse regular, Warm extremities with appropriate color of nailbeds. RESP - No obvious wheezing, No Shortness of Breath, No overexertion response to exam maneuvers. COORDINATION - remains intact. PSYCH - Alert and Oriented x4, Attentive and appropriate, constitutionally normal, displays normal mood and affect per situation, answered questions appropriately during examination, demonstrated appropriate attention during discussion, demonstrated appropriate cognitive reasoning and understanding of the medical condition by asking appropriate questions regarding the diagnosis and risks/benefits/alternatives of treatment modalities. No obvious deficits in memory, reasoning, or intellect. Extremity Exam: Examination of the Bilateral upper extremity reveals notable Hyperpathia and allodynia. Notable Atrophy and diffuse weakness of the extremity. Notable Shiny skin with hair loss and abnormal hair growth denoting trophic changes in the extremity. Notable Asymetric color and temperature changes between the extremities denoting vasomotor changes. Notable excess perspiration noted in the extremity denoting sudomotor changes. Decreased range of motion noted along with diminished strength in the extremity. Otherwise there is 5/5 strength in the unaffected extremities. Pulses are palpable but diminished. Assessment/Treatment Plan: Aislinn was seen today for arm injury. Diagnoses and all orders for this visit: Complex regional pain syndrome type 1 of right upper extremity Encounter for long-term opiate analgesic use Continue Lyrica 150 mg TID and Long Point 7.5/325 mg TID PRN Proceed with Dr. Oleary consult with approved C-9 Follow up 3 months The medications I have prescribed have been reviewed for medication interactions/contraindications and/or for upcoming procedures: continue current medication regimen without any changes. It is felt that the patient s current pain is related to the described work related injury as well as the allowed condition mentioned. DISCUSSION: Treatment options discussed with patient and all questions answered to patient's satisfaction. Discussed the rules and regulations surrounding prescription of opioids and compliance at length. Failure to follow the rules and regulation will result in tapering and discontinuation of medications if applicable. The patient has been instructed as to the type of medication prescribed along with directions for use. Potential side effects have been discussed, along with risks and benefits of taking this medication. (S)he was instructed as to what to do if (s)he experiences side effects, including when to discontinue the medication. (S)he was advised to call this office in this event. Also discussed at length safety and security of RX and medications. Due to the high risk nature of this patient's pain medication regimen, frequent office visit refill appointments (every 1-3 months) are medically necessary to monitor for an addiction disorder. Prescribed medication that requires intensive monitoring for toxicity Long Point. Long Point pill count completed at today's office visit. Dose: 7.5-325 x3 Daily Quantity Dispensed 90 Quantity Remaining 70 Fill date on prescription bottle 06/24/24 appropriate Patient educated to bring medication to every office visit. Long Point and Lyrica was refilled at today's office visit. OARRS and most recent UDS were reviewed, discussed and appropriate for medications prescribed. The spine model was demonstrated and CT was reviewed and used to explain the condition. Chronic conditions not treated during this visit that affected my overall medical decision making: Diabetes OARRS: Reviewed. Scribe Statement: Scribed for and in the presence of SWETA LI PA-C by Agusto Gray CNA. Provider Statement: I, SWETA LI PA-C, personally performed the services described in the documentation, as scribed by Agusto Gray CNA in my presence, and it is both accurate and complete. Agusto Gray CNA 07/03/24 1235 Sweta Li PA-C 07/03/24 1245 documented in this encounter [facility] 06-26-2024 Telephone encounter Note Called and spoke to Aislinn Wheeler regarding her message. Asked her which surgery she was thinking of of the three options presented by Dr. Barnard. She mentioned the one where you make the bladder bigger. Reviewed the three options (Mitrofanoff, C/IC, and SPT with botox). She states she didn't want the bag. Discussed urostomy in general and offered to send her an information booklet about each procedure (Mitrofanoff and C/IC) for her review. Fed Ex today. Also asked her to get the labwork requested by Dr. Barnard locally Cystatin C and CMP sent to [facility] ( ; fx [phone]) and asked her to go to lab today or tomorrow. Once results come back, will set up a virtual visit to review options again and then put her on the schedule. Patient states understanding of instructions and plan. Adama Velasco RN ----- Message from Juanito Barnard MD sent at 06/20/2024 8:57 PM EDT ----- Regarding: RE: Surgery Did she say which surgery? We discussed a few options. She was supposed to get repeat blood work and do a VV with me - she didn't do the blood work and missed the virtual. Can you let her know to get blood work and schedule her for a VV? ----- Message ----- From: Alicia Flores MA Sent: 06/20/2024 12:00 PM EDT To: Adama Velasco RN; Juanito Barnard MD Subject: Surgery Patient called states she wants to proceed with surgery Thanks [facility] Work Phone: 06-26-2024 Miscellaneous Notes Called and spoke to Aislinn Wheeler regarding her message. Asked her which surgery she was thinking of of the three options presented by Dr. Barnard. She mentioned the one where you make the bladder bigger. Reviewed the three options (Mitrofanoff, C/IC, and SPT with botox). She states she didn't want the bag. Discussed urostomy in general and offered to send her an information booklet about each procedure (Mitrofanoff and C/IC) for her review. Fed Ex today. Also asked her to get the labwork requested by Dr. Barnard locally Cystatin C and CMP sent to [facility] ( ; fx [phone]) and asked her to go to lab today or tomorrow. Once results come back, will set up a virtual visit to review options again and then put her on the schedule. Patient states understanding of instructions and plan. Adama Velasco RN ----- Message from Juanito Barnard MD sent at 06/20/2024 8:57 PM EDT ----- Regarding: RE: Surgery Did she say which surgery? We discussed a few options. She was supposed to get repeat blood work and do a VV with me - she didn't do the blood work and missed the virtual. Can you let her know to get blood work and schedule her for a VV? ----- Message ----- From: Alicia Flores MA Sent: 06/20/2024 12:00 PM EDT To: Adama Velasco RN; Juanito Barnard MD Subject: Surgery Patient called states she wants to proceed with surgery Thanks documented in this encounter [facility] 06-11-2024 Miscellaneous Notes Last Office Visit: 04/24/2024 Next Office Visit: 06/26/2024 Last Urine Drug Screen: Lab Results Component Value Date BENZOSCRN Negative 08/09/2023 OARRS appropriate documented in this encounter [facility] 06-11-2024 Telephone encounter Note Last Office Visit: 04/24/2024 Next Office Visit: 06/26/2024 Last Urine Drug Screen: Lab Results Component Value Date BENZOSCRN Negative 08/09/2023 OARRS appropriate [facility] 06-11-2024 History of Presen t illness Narrative Associated Problem(s): Skin lesion of face Suspect to be AK Pt request referral to derm Associated Problem(s): Malignant neoplasm of cervix uteri, unspecified (CMS/HCC) Had hyst Associated Problem(s): Rheumatoid arthritis, unspecified (CMS/HCC) Does not follow with Rheumatology Associated Problem(s): Type 2 diabetes mellitus with hyperglycemia, with long-term current use of insulin (CMS/HCC) Will recheck A1c level Continue current insulin at this time Hx of non compliance with fu appts w specialist Associated Problem(s): Chronic kidney disease, stage 3b (HCC) ([facility]) Has to get labs for nephrology and fu appt with them Discussed with pt the importance of adequte blood pressure and blood sugar control to help slow the progression of CKD Associated Problem(s): Continuous leakage of urine Continue with urology Associated Problem(s): Primary hypertension ([facility]) Has not been taking both amlodipine and metoprolol We will start over with amlodipine at 10mg daily Fu in 2 weeks for blood pressure check Recheck in office 188/90 Associated Problem(s): RSD (reflex sympathetic dystrophy) Continue with pain mgmt Associated Problem(s): Type 2 diabetes mellitus with diabetic neuropathy, unspecified whether supervisor long goods insulin use ([facility]) Reports increase in neuropathy symptoms, is on lyrica at 150mg TID, also takes percocet for RSD Will trial addition of duloxetine at 20mg daily Fu in 4-6 weeks Pt has a spot on her left side of her face that has not gone away she has been putting creams and atb on it. Pt has had it for about 6 plus months. Pt would like to talk about her diabetes And concerned about her BP has been high and low Images from the original note were not included. Aislinn Wheeler is a 64 y.o. female presents with chief complaint of No chief complaint on file. HPI: Skin lesion: left side of face, +irritated and growing Hypertension This is a chronic problem. The current episode started more than 1 year ago. The problem has been waxing and waning since onset. The problem is uncontrolled. Associated symptoms include chest pain (occ) and malaise/fatigue. Pertinent negatives include no anxiety, blurred vision, headaches, orthopnea, palpitations, peripheral edema, PND or shortness of breath. There are no associated agents to hypertension. Risk factors for coronary artery disease include diabetes mellitus, dyslipidemia and sedentary lifestyle. Past treatments include calcium channel blockers. The current treatment provides mild improvement. Compliance problems: does not always take meds. Hypertensive end-organ damage includes kidney disease and PVD. There is no history of CVA or heart failure. Identifiable causes of hypertension include chronic renal disease. Diabetes She presents for her follow-up diabetic visit. She has type 2 diabetes mellitus. Her disease course has been fluctuating. There are no hypoglycemic associated symptoms. Pertinent negatives for hypoglycemia include no dizziness, headaches, nervousness/anxiousness, seizures or tremors. Associated symptoms include chest pain (occ), fatigue, foot paresthesias and polyuria. Pertinent negatives for diabetes include no blurred vision, no polydipsia, no polyphagia, no visual change, no weakness and no weight loss. There are no hypoglycemic complications. Diabetic complications include nephropathy, peripheral neuropathy and PVD. Pertinent negatives for diabetic complications include no CVA or heart disease. Risk factors for coronary artery disease include diabetes mellitus, dyslipidemia, hypertension, post-menopausal and sedentary lifestyle. Current diabetic treatment includes insulin injections. She is following a generally unhealthy diet. She has not had a previous visit with a dietitian. She rarely participates in exercise. Her overall blood glucose range is >200 mg/dl. An TIMBO inhibitor/angiotensin II receptor rainer is not being taken. She sees a ballistics expert.Eye exam is not current. SUBJECTIVE: MEDICATIONS: Current Outpatient Medications Medication Instructions amLODIPine (NORVASC) 10 mg, Oral, Daily cetirizine (ZYRTEC) 10 mg, Oral, Daily cyanocobalamin (VITAMIN B-12) 1,000 mcg, Oral, Daily Cyanocobalamin ER 1000 MCG tablet controlled-release 1 tablet, Oral, Daily RT denosumab (PROLIA) 60 mg, Subcutaneous, Every 6 months DULoxetine (CYMBALTA) 20 mg, Oral, Daily, Do not crush or chew. fluticasone (Flonase) 50 MCG/ACT nasal spray 2 sprays, Each Nostril, Daily, Shake gently. Before first use, prime pump. After use, clean tip and replace cap. glucose blood (True Metrix Blood Glucose Test) test strip 4 times daily use HYDROcodone-acetaminophen ([place]) 7.5-325 MG tablet 1 tablet, Oral, 3 times daily PRN insulin glargine (LANTUS) 30 Units, Subcutaneous, Nightly insulin lispro (HumaLOG) 100 UNIT/ML injection INJECT 4-6-8 UNITS SUBCUTANEOUSLY THREE TIMES DAILY plus sliding scale coverage 2 (TWO) (max DAILY dose OF 30 UNITS) metoprolol succinate XL (TOPROL-XL) 50 mg, Oral, Daily pregabalin (Lyrica) 150 MG capsule 1 capsule, Oral, 3 times daily trospium (SANCTURA) 20 mg, Oral, Daily ALLERGIES: Allergies Allergen Reactions Latex Rash Added based on information entered during case entry, please review and add reactions, type, and severity as needed REVIEW OF SYMPTOMS: Review of Systems Constitutional: Positive for fatigue and malaise/fatigue. Negative for appetite change, chills, fever and weight loss. HENT: Negative for congestion, ear pain and sore throat. Eyes: Negative for blurred vision, pain, discharge, redness and visual disturbance. Respiratory: Negative for cough, shortness of breath and wheezing. Cardiovascular: Positive for chest pain (occ). Negative for palpitations, orthopnea, leg swelling and PND. Gastrointestinal: Negative for abdominal pain, blood in stool, constipation, diarrhea, nausea and vomiting. Genitourinary: Positive for difficulty urinating and urgency. Negative for dysuria and frequency. Musculoskeletal: Negative for arthralgias, back pain, joint swelling and myalgias. Skin: Negative for rash and wound. Neurological: Positive for numbness. Negative for dizziness, tremors, seizures, syncope, weakness and headaches. Psychiatric/Behavioral: Negative for behavioral problems, self-injury and suicidal ideas. The patient is not nervous/anxious. Hematological: Does not bruise/bleed easily. Endocrine: Positive for polyuria. Negative for polydipsia and polyphagia. Allergic/Immunologic: Negative for environmental allergies and food allergies. PAST MEDICAL HISTORY Past Medical History: Diagnosis Date Amputation of left great toe ([facility]) Cervical cancer ([facility]) 10/11/2023 had Hysterectomy Charcot's joint of foot, left 10/11/2023 Chronic kidney disease, stage III (moderate) (HCC) ([facility]) 10/11/2023 Fatty liver 10/11/2023 History of hysterectomy 10/11/2023 Cervical cancer Hyperkalemia Hyponatremia Leakage of urine from ureter Lupus ([facility]) Memory impairment of gradual onset MOCA: on 12/20/22 Mitral valve prolapse 10/11/2023 Multiple closed fractures of metatarsal bone of left foot with malunion, subsequent encounter 62-y/o fe with h/o diabetic neuropathy who presents for f/u of multiple metatarsal neck fractures of left foot. has been using total contact casting for the past few weeks. Overall she is doing better. States she only ambulates to and from the bathroom. has been compliant with her nonweightbearing status over the past couple of weeks.Brought cam boot today in anticipation of discontinuing casts Onychomycosis of nail of digit of hand Osteoporosis ([facility]) 10/11/2023 Post-menopausal 10/11/2023 Rheumatoid arthritis ([facility]) 10/11/2023 RSD (reflex sympathetic dystrophy) 10/11/2023 Type 2 diabetes mellitus with diabetic neuropathy, unspecified whether shelter insulin use ([facility]) 10/11/2023 Visual impairment 10/11/2023 HAD BILATERAL CATARCT SURGERY BETTER NOW Past Surgical History: Procedure Laterality Date CATARACT EXTRACTION, BILATERAL CHOLECYSTECTOMY CYST REMOVAL Left 2022 cyst removal off left kidney EGD 12/07/2007 mod gastritis HYSTERECTOMY KNEE SURGERY Left left knee surgery scoped NECK SURGERY 3 neck surgeries OTHER SURGICAL HISTORY Right 3 right arm surgeries SHOULDER SURGERY Left family history includes Heart disease in her brother and father; Hypertension in her father. OBJECTIVE: Visit Vitals BP 140/82 (BP Location: Left arm, Patient Position: Sitting, BP Cuff Size: Adult long) Pulse 75 Temp 98.1 F (Temporal) Resp 18 Ht 5' Wt 129 lb SpO2 97% BMI 25.19 kg/m Smoking Status Never BSA 1.57 m Physical Exam Vitals and nursing note reviewed. Constitutional: General: She is not in acute distress. Appearance: Normal appearance. HENT: Head: Normocephalic and atraumatic. Right Ear: External ear normal. Left Ear: External ear normal. Nose: Nose normal. Mouth/Throat: Mouth: Mucous membranes are moist. Eyes: Extraocular Movements: Extraocular movements intact. Conjunctiva/sclera: Conjunctivae normal. Neck: Vascular: No carotid bruit. Cardiovascular: Rate and Rhythm: Normal rate and regular rhythm. Pulses: Normal pulses. Heart sounds: Normal heart sounds. No murmur heard. Pulmonary: Effort: Pulmonary effort is normal. No respiratory distress. Breath sounds: Normal breath sounds. No wheezing. Abdominal: General: Bowel sounds are normal. There is no distension. Palpations: Abdomen is soft. There is no mass. Tenderness: There is no abdominal tenderness. Musculoskeletal: General: Normal range of motion. Cervical back: Normal range of motion and neck supple. Right lower leg: No edema. Left lower leg: No edema. Lymphadenopathy: Cervical: No cervical adenopathy. Skin: General: Skin is warm and dry. Capillary Refill: Capillary refill takes 2 to 3 seconds. Findings: No rash. Comments: Bilat foot examination: Left great toe absent, well healed scar, mild erythema to IP joint of left 2nd digit with hammer toe, remainder of foot and right foot: no open areas +strong pulsed DP/PT pulses Skin lesion to left cheek area, likely AK Neurological: General: No focal deficit present. Mental Status: She is alert and oriented to person, place, and time. Psychiatric: Mood and Affect: Mood normal. Behavior: Behavior normal. Thought Content: Thought content normal. Judgment: Judgment normal. ASSESSMENT AND PLAN: No follow-ups on file. Problem List Items Addressed This Visit Type 2 diabetes mellitus with hyperglycemia, with long-term current use of insulin (CMS/HCC) Will recheck A1c level Continue current insulin at this time Hx of non compliance with fu appts w specialist Relevant Orders Basic metabolic panel Hemoglobin A1c 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 (CMS/HCC) IESHA (iron deficiency anemia) Primary hypertension (CMS/HCC) Has not been taking both amlodipine and metoprolol We will start over with amlodipine at 10mg daily Fu in 2 weeks for blood pressure check Recheck in office 188/90 Relevant Medications amLODIPine (Norvasc) 10 MG tablet Type 2 diabetes mellitus with diabetic neuropathy, unspecified whether supervisor long goods insulin use (CMS/HCC) Reports increase in neuropathy symptoms, is on lyrica at 150mg TID, also takes percocet for RSD Will trial addition of duloxetine at 20mg daily Fu in 4-6 weeks Relevant Medications DULoxetine (Cymbalta) [address] capsule RSD (reflex sympathetic dystrophy) Continue with pain mgmt Malignant neoplasm of cervix uteri, unspecified (CMS/HCC) Rheumatoid arthritis, unspecified (CMS/HCC) Does not follow with Rheumatology Continuous leakage of urine Continue with urology 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 Type 2 diabetes mellitus with diabetic chronic kidney disease (CMS/HCC) Chronic kidney disease, stage 3b (HCC) (CMS/HCC) Has to get labs for nephrology and fu appt with them Discussed with pt the importance of adequte blood pressure and blood sugar control to help slow the progression of CKD Hyperparathyroidism, unspecified (CMS/HCC) Other Visit Diagnoses Essential (primary) hypertension (CMS/HCC) - Primary documented in this encounter [facility] 06-10-2024 Note Received referral ag savannah with no C9 approval attached. Spoke with referring provider's office. They will send message to the referral's office to fax C9 approval. I provided my contact information and fax number. [facility] 05-09-2024 Note Reviewed pt's referr al. Pt is being referred for SCS trial consult with [facility], however, it states in the note that they will submit C9 for consult. There is no C9 approval with referral. I called referring provider and spoke with Agusto. Per Agusto, they have not received C9 approval yet and is not sure why the referral was sent. I told Agusto that we will cancel this referral for now and to refax referral with C9 approval once obtained. Agutso verbalized understanding. Please do not schedule if pt calls back. [facility] 05-01-2024 History of Presen t illness Narrative Images from the original note were not included. [facility] UROLOGY NEW PATIENT [...] chronic constipation Juanito Barnard MD Associate Staff [facility] Department of Urology I spent a total of 30 minutes on the date of the service which included preparing to see the patient, [id number] patient care, completing clinical documentation, obtaining and/or reviewing separately obtained history, performing a medically appropriate examination, counseling and educating the patient/family/caregiver, and ordering medications, tests, or procedures. >50% of time was devoted to patient counseling. documented in this encounter [facility] 05-01-2024 Note HNO ID: [id number] Author: JUANITO BARNARD MD Service: ? Author Type: Physician Type: Progress Notes Filed: 05/01/2024 12:12 Note Text: [facility] [place] [facility] NEW PATIENT CLINIC NOTE SERVICE DATE: [...] Resp: normal e (more content not included)... [facility] 05-01-2024 Note Patient Outreach (ANGEL OLMN) AISLINN WHEELER ([id number]) 1960 F Date Time Provider Department 05/01/24 [...] for genitourinary condition [Z13.89] Order(s):URINALYSIS, REFLEX MICROSCOPIC [[id number]] Order #: [id number]. 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 Service: ? Author Type: ? Type: Progress Notes Filed: 04/15/2024 07:29 Note Text: Incidental Lung Nodule Enrollment Outreach attempt: 3rd Attempt Outreach status: Complete Enrolled in Lung Nodule program: No Declined reason: Other Lung Nodule Program Location: [place] Two letter attempts, no response. Discharge letter sent. [facility] 04-15-2024 History of Presen t illness Narrative Incidental Lung Nodule Enrollment Outreach attempt: 3rd Attempt Outreach status: Complete Enrolled in Lung Nodule program: No Declined reason: Other Lung Nodule Program Location: [place] Two letter attempts, no response. Discharge letter sent. documented in this encounter [facility] 04-15-2024 Note Patient Outreach (PU LMMN) AISLINN WHEELER ([id number]) 1960 F Date Time Provider Department 04/15/24 CHIOMA DURÁN During your visit today, we recorded the following information about you: Chioma Durán 04/15/2024 7:29 AM Signed Incidental Lung Nodule Enrollment Outreach attempt: 3rd Attempt Outreach status: Complete Enrolled in Lung Nodule program: No Declined reason: Other Lung Nodule Program Location: [place] Two letter attempts, no response. Discharge letter [...] [Z86*06/06/2023 MVP (mitral valve prolapse) [I34.1] 06/06/2023 IESHA (iron deficiency anemia) [D50.9] 06/06/2023 Chronic pain [...] Encounter Status:Closed by CHIOMA DURÁN on 04/15/24 [facility] 04-09-2024 Note HNO ID: [id number] Author: CARMENZA NOLEN MD Service: ? Author [...] bladder with poor compliance and BURKE at RESIDENTIAL of 100ml. Bladder remodeling without VUR. Valsalva [...] visit. Either the patient or their legal wire rope sales representative has been informed of the risks and benefits of -- and alternatives to -- treatment through a remote evaluation and consents to proceed with the evaluation remotely. [facility] 04-09-2024 History of Presen t illness [...] bladder with poor compliance and BURKE at RESIDENTIAL of 100ml. Bladder remodeling without VUR. Valsalva [...] visit. Either the patient or their legal wire rope sales representative has been informed of the risks and benefits of -- and alternatives to -- treatment through a remote evaluation and consents to proceed with the evaluation remotely. documented in this encounter [facility] 04-08-2024 Note HNO ID: [id number] Author: ?, ?, ? Service: ? Author Type: ? Type: Progress Notes Filed: 04/08/2024 09:39 Note Text: Incidental Lung Nodule Enrollment Outreach attempt: 2nd Attempt Outreach status: Complete Enrolled in Lung Nodule program: Referred Lung Nodule outreach: Needs outreach Lung Nodule Program Location: [place] Two letter attempts [facility] 04-08-2024 History of Presen t illness Narrative Incidental Lung Nodule Enrollment Outreach attempt: 2nd Attempt Outreach status: Complete Enrolled in Lung Nodule program: Referred Lung Nodule outreach: Needs outreach Lung Nodule Program Location: [place] Two letter attempts documented in this encounter [facility] 04-08-2024 Note Patient Outreach (PU LMMN) AISLINN WHEELER ([id number]) 1960 F Date Time Provider Department 04/08/24 CHIOMA DURÁN During your visit today, we recorded the following information about you: Chioma Durán 04/08/2024 9:39 AM Signed Incidental Lung Nodule Enrollment Outreach attempt: 2nd Attempt Outreach status: Complete Enrolled in Lung Nodule program: Referred Lung Nodule outreach: Needs outreach Lung Nodule Program Location: [place] Two letter attempts Allergies As of Date: [...] [Z86*06/06/2023 MVP (mitral valve prolapse) [I34.1] 06/06/2023 IESHA (iron deficiency anemia) [D50.9] 06/06/2023 Chronic pain [...] Encounter Status:Closed by CHIOMA DURÁN on 04/08/24 [facility] 04-02-2024 Note HNO ID: [id number] Author: CARMENZA NOLEN MD Service: ? Author Type: Physician Type: Progress Notes Filed: 04/02/2024 11:52 Note Text: [facility] [...] bladder with poor compliance and BURKE at RESIDENTIAL of 100ml. Bladder remodeling without VUR. Valsalva voiding with atonic detrusor. Will refer to consider bladder augmentation. Carmenza Nolen MD Voiding cystourethrogram- Voiding Cystourethrogram Patient Name - Aislinn Wheeler Date - April 02, 2024 Imaging exam - VCUG Number of images saved - 11 Patient position - Sitting Radiologic Findings: A [employer] director radiograph was obtained. The bony and soft tissue structures are within normal. 147 ccs contrast were used to fill the bladder. The bladder outline is irregular/trabeculated and abnormal shaped appearing. There is no ureteral reflux. During the voiding phase there is abnormal bladder neck opening and urethra is not visualized. Bladder emptying is not visualized Read by - Carmenza Nolen MD [facility] 03-29-2024 Nurse Note [facility] URODYNAMICS LAB URODYNAMIC [...] allergy: No Females- Is patient : No Shearing Shed Worker offered:Patient declines B/O UA: Yes, Negative [...] Pt states an understanding of instructions given. [facility] 03-29-2024 Nurse Note [facility] URODYNAMICS LAB URODYNAMIC [...] allergy: No Females- Is patient : No Shearing Shed Worker offered:Patient declines B/O UA: Yes, Negative [...] of instructions given. documented in this encounter [facility] 03-27-2024 Note HNO ID: [id number] Author: NURIA READ APRN.PRODUCT MANAGENT INTERN Service: ? Author Type: Nurse Practitioner Type: Progress Notes Filed: 03/27/2024 14:36 Note Text: Incidental Lung Nodule Enrollment Outreach attempt: 1st Attempt Outreach status: Complete Enrolled in Lung Nodule program: Referred Lung Nodule outreach: Needs outreach Lung Nodule Program Location: [facility] 03-27-2024 History of Presen t illness Narrative Incidental Lung Nodule Enrollment Outreach attempt: 1st Attempt Outreach status: Complete Enrolled in Lung Nodule program: Referred Lung Nodule outreach: Needs outreach Lung Nodule Program Location: [facility] [place] documented in this encounter [facility] 03-27-2024 Note Patient Outreach (PM M211) AISLINN WHEELER ([id number]) 1960 F Date Time Provider Department 03/27/24 NURIA READ PSN490 During your visit today, we recorded the following information about you: Nuria Read, ASHVIN.PRODUCT MANAGENT INTERN 03/27/2024 2:36 PM Signed Incidental Lung Nodule Enrollment Outreach attempt: 1st Attempt Outreach status: Complete Enrolled in Lung Nodule program: Referred Lung Nodule outreach: Needs outreach Lung Nodule Program Location: [facility] [place] Allergies As of Date: [...] [Z86*06/06/2023 MVP (mitral valve prolapse) [I34.1] 06/06/2023 IESHA (iron deficiency anemia) [D50.9] 06/06/2023 Chronic pain [...] Encounter Status:Closed by NURIA READ on 03/27/24 [facility] 03-26-2024 Instructions Carmenza Nolen MD [...] the test so you arrive at the [facility] with the urge to empty your bladder. [...] your bladder when you arrive at the [facility]. Speak with a nurse if you feel you must empty your bladder. If you are taking antibiotics for a urinary tract infection (UTI) or bladder infection, notify your physician's office immediately. We may reschedule your bladder test. Bring a list of all prescribed and coyx-kwm-ytsrqau medications you are taking. If you should need assistance due to a language barrier or medical needs/condition, please notify the optometrist president/practice owner when making your appointment and one will be provided for you ([phone]). If you are taking overactive bladder medications [...] test is finished. documented in this encounter [facility] 03-26-2024 Note HNO ID: [id number] Author: CARMENZA NOLEN MD Service: ? Author Type: Physician Type: Progress Notes Filed: 03/26/2024 11:54 Note Text: [facility] [...] her bladder. Had bladder botox injections at [facility] about 3 mo ago with no [...] Assessed 03/26/2024 PHYSICAL EXAM: Patient declined a project management director General: No acute distress, well appearing : [...] and concerns were addressed. Carmenza Nolen MD [facility] 03-26-2024 History of Presen t illness Narrative [facility] [...] her bladder. Had bladder botox injections at [facility] about 3 mo ago with no [...] Assessed 03/26/2024 PHYSICAL EXAM: Patient declined a project management director General: No acute distress, well appearing : [...] Via bladder scan. documented in this encounter [facility] 03-26-2024 Note HNO ID: [id number] Author: MARIA TERESA JOHNSON MA Service: ? Author Type: Workers' Compensation Mediator Type: Progress Notes Filed: 03/26/2024 11:54 Note Text: Pt voided upon arrival. PVR = 205 ml Via bladder scan. Pt was doing ISC, but was told she could stop. Pt instructed to give a urine specimen. 2ND Repeat PVR PVR = 135 ml Via bladder scan. [facility] 02-26-2024 Telephone encounter Note Pt LVM asking for her CT scan results. Noted in pt chart was an unread message from regarding the most recent CT scan. LVM for pt and let her know about MyChart message and provided number if pt has any further questions. [facility] 02-26-2024 Miscellaneous Notes Pt LVM asking for her CT scan results. Noted in pt chart was an unread message from regarding the most recent CT scan. LVM for pt and let her know about MyChart message and provided number if pt has any further questions. documented in this encounter [facility] 02-12-2024 Telephone encounter Note Patient LVM requesting results from 02/01/24 CT Urogram. Will update medical team [facility] 02-12-2024 Miscellaneous Notes Patient LVM requesting results from 02/01/24 CT Urogram. Will update medical team documented in this encounter [facility] 02-01-2024 History of Presen t illness Narrative [...] PATIENT PRESENTS WITH AN IMPLANTABLE OR ATTACHED MICROSOFT ARCHITECT: No RADIOLOGY DEPARTMENT: CT; Exam(s) Completed: Urogram PERIPHERAL IV DATA: Site assessment: Clean,Dry and Intact, Site disposition Discontinued SIGNED BY: RT Michael(R) February 01, 2024 2:50 PM documented in this encounter [facility] 02-01-2024 Note HNO ID: [id number] Author: PRERNA THORPE RT(Raquel) Service: ? Author Type: Technologist Type: Progress [...] PATIENT PRESENTS WITH AN IMPLANTABLE OR ATTACHED MICROSOFT ARCHITECT: No RADIOLOGY DEPARTMENT: CT; Exam(s) Completed: Urogram PERIPHERAL IV DATA: Site assessment: Clean,Dry and Intact, Site disposition Discontinued SIGNED BY: RT Michael(R) February 01, 2024 2:50 PM [facility] 02-01-2024 Note HNO ID: [id number] Author: HEIDY LINDA RN Service: Nursing Author [...] DATE: February 01, 2024 TIME: 2:50 PM [facility] 01-12-2024 Note HNO ID: [id number] Author: SANJANA CALLAWAY MA Service: ? Author Type: Workers' Compensation Mediator Type: Progress Notes Filed: 01/12/2024 14:43 Note Text: Post Void Residual done on patient with 211 cc residual volume remaining. notified. Sanjana Callaway MA [facility] 01-12-2024 History of Presen t illness Narrative Post Void Residual done on patient with 211 cc residual volume remaining. notified. Sanjana Callaway MA [facility] FOLLOW-UP PATIENT HISTORY AND PHYSICAL [...] urogram Will refer to Dr. Tamanna Ruiz APRN.PRODUCT MANAGENT INTERN Attending Note I have personally performed a [...] presence of Dr. Ballard Electronically signed, Power Blanco I agree with the Chief Complaint, ROS, and Past Histories independently gathered by the clinical arch support maker and the remaining scribed note accurately describes my personal service to the patient. Dr. Taurus Ballard MD documented in this encounter [facility] 01-12-2024 Note HNO ID: [id number] Author: TAURUS BALLARD MD Service: ? Author Type: Physician Type: Progress Notes Filed: 01/12/2024 14:43 Note Text: [facility] FOLLOW-UP PATIENT HISTORY AND PHYSICAL [...] urogram Will refer to Dr. Tamanna Ruiz APRN.PRODUCT MANAGENT INTERN Attending Note I have personally performed a [...] MD Date: 01/12/2024 (more content not included)... [facility] 11-06-2023 Miscellaneous Notes Last Office Visit: 08/09/2024 Next Office Visit: 11/22/2023 Last Urine Drug Screen: Lab Results Component Value Date BENZOSCRN Negative 08/09/2023 OARRS appropriate documented in this encounter [facility] 11-06-2023 Telephone encounter Note Last Office Visit: 08/09/2024 Next Office Visit: 11/22/2023 Last Urine Drug Screen: Lab Results Component Value Date BENZOSCRN Negative 08/09/2023 OARRS appropriate [facility] 10-25-2023 Hospital Discharg e instructions Patient [...] including vitamins, herbs, eye drops, creams, and xswp-aqz-umkixht medicines. Any problems you or family members [...] provider tells you to take them. Taking utuf-jkt-lmhtneo medicines, vitamins, herbs, and supplements. General instructions [...] Follow these instructions at home: Medicines Take mbqh-tgk-fbmhoft and prescription medicines only as told by [...] provider. Document Revised: 02/11/2022 Document Reviewed: 02/11/2022 DataEmail Group Patient Education 2022 appCREAR. Follow Up Care 09/26/2023 08:43:34 With:HEIDY ARNOLD PA-C, URL Address: [address] [place] [address] When: Unknown [facility] Ashlie 10-10-2023 Miscellaneous Notes Last OV: 08/12/23 Next OV: proc 10/13/23 OARRS appropriate: yes Last UDS: 08/12/23 Pharmacy: [facility] documented in this encounter [facility] [employer] 10-10-2023 Telephone encounter Note Last OV: 08/12/23 Next OV: proc 10/13/23 OARRS appropriate: yes Last UDS: 08/12/23 Pharmacy: [facility] 09-27-2023 Miscellaneous Notes Summary: [place] IRB# [id number] IRB# [id number]: Vascular events in patients undergoing same-day nonCardiac surgery - CHRISTOPHER PI: Mary Rojas MD, LETY, FASA. Outcomes Research Department. [facility] [place]. [facility]. Aislinn Wheeler was unavailable at the listed phone number. We will attempt to contact the patient through [employer] message. Drew Esqueda, Research Coordinator Research Coordinator documented in this encounter [facility] 09-26-2023 Miscellaneous Notes Summary: CHRISTOPHER IRB# [id number] IRB# [id number]: Vascular events in patients undergoing same-day nonCardiac surgery - CHRISTOPHER PI: Mary Rojas MD, LETY, BARNEY. Outcomes Research Department. [facility] [place]. [facility]. Aislinn Wheeler was unavailable at the listed phone number. We will attempt to contact the patient again at a later date. Drew Esqueda, Research Coordinator Research Coordinator documented in this encounter [facility] 09-07-2023 Miscellaneous Notes Last OV: 08/09/2023 Next OV: --- OARRS appropriate: yes Last UDS: 08/09/2023 Pharmacy: [facility] Patient left phone message requesting refill on [place] and Lyrica. Lyrica prescription signed 08/11/2023 has 1 refill. Per OARRS patient last filled Lyrica 08/11/2023. [place] prescription pended for review and signature. Patient's fill dated adjusted from 09/14/23 to 09/17/23 due to recent 3 day hospitalization. documented in this encounter [facility] 09-07-2023 Telephone encounter Note Last OV: 08/09/2023 Next OV: --- OARRS appropriate: yes Last UDS: 08/09/2023 Pharmacy: [facility] Patient left phone message requesting refill on Long [place] and Lyrica. Lyrica prescription signed 08/11/2023 has 1 refill. Per OARRS patient last filled Lyrica 08/11/2023. [place] prescription pended for review and signature. [facility] 09-07-2023 Telephone encounter Note Patient's fill dated adjusted from 09/14/23 to 09/17/23 due to recent 3 day hospitalization. [facility] 09-03-2023 Note HNO ID: [id number] Author: KRYSTA SULLIVAN MD Service: Hospital Medicine [...] DATE: September 03, 2023 TIME: 6:31 PM [facility] 09-02-2023 Note HNO ID: [id number] Author: KRYSTA SULLIVAN MD Service: Hospital Medicine [...] -- 08/31/23 1115 activity - mobilize patient (wi,ar) VTE Prophylaxis: VTE prophylaxis appropriate SIGNATURE: Krysta Sullivan MD PATIENT NAME: Aislinn Wheeler DATE: September 02, 2023 TIME: 2:31 PM [facility] 09-02-2023 Note HNO ID: [id number] Author: NOTE, INTERFACE, ? Service: ? Author Type: ? Type: Progress Notes Filed: 09/02/2023 02:20 Note Text: Epic Scheduled Downtime: 09/02/2023 1:00:00 AM to 09/02/2023 2:04:22 AM [facility] 09-01-2023 Note HNO ID: [id number] Author: MIKE LOUIS RN Service: Care Management Author Type: Registered Nurse Type: Care Mgt Progress Note Filed: 09/01/2023 15:30 Note Text: CARE MANAGEMENT WEEKEND PLANNING NOTE NO WEEKEND DISCHARGE Disposition: TBD Anticipated Discharge Date: No weekend DC anticipated Weekend Handkerchief Presser Pager #: Girish Rogers [phone] ANATOLIY UTI - repeat UA sent - bc pending Waiting on podiatry consult SIGNATURE: Mike Louis RN PATIENT NAME: Aislinn Wheeler DATE: September 01, 2023 TIME: 3:28 PM PAGER/CONTACT #: [phone] [facility] 09-01-2023 Note HNO ID: [id number] Author: ANTHONY BARROW MD Service: Hospital Medicine [...] -- 08/31/23 1115 activity - mobilize patient (wi,ar) VTE Prophylaxis: VTE prophylaxis appropriate SIGNATURE: Anthony Barrow MD PATIENT NAME: Aislinn Wheeler DATE: September 01, 2023 TIME: 11:36 AM [facility] 08-31-2023 History of Past i llness [...] of this encounter (statuses as of 09/27/2023) [facility]01-11-2024 History of Past illness Narrative* Problem Noted Date Diagnosed Date Resolved Date Fever 08/31/2023 09/04/2023 Urinary tract infection without hematuria 08/31/2023 09/04/2023 Acute cystitis without hematuria 01/18/2021 01/21/2021 Pyelonephritis 01/17/2021 01/21/2021 Sepsis 01/17/2021 01/21/2021 Hyponatremia 01/17/2021 01/21/2021 Hyperkalemia 01/17/2021 09/04/2023 ANATOLIY (acute kidney injury) 01/17/2021 Hydronephrosis due to obstruction of ureter 01/17/2021 01/21/2021 documented as of this encounter (statuses as of 09/28/2023) [facility]2024 History of Past illness Narrative* Problem Noted Date Diagnosed Date Resolved Date Fever 08/31/2023 09/04/2023 Urinary tract infection without hematuria 08/31/2023 09/04/2023 Acute cystitis without hematuria 01/18/2021 01/21/2021 Pyelonephritis 01/17/2021 01/21/2021 Sepsis 01/17/2021 01/21/2021 Hyponatremia 01/17/2021 01/21/2021 Hyperkalemia 01/17/2021 09/04/2023 ANATOLIY (acute kidney injury) 01/17/2021 Hydronephrosis due to obstruction of ureter 01/17/2021 01/21/2021 documented as of this encounter (statuses as of 09/28/2023) [facility]01-11-2024 NoteHNO ID: [id number] Author: TIN QUIÑONEZ LSW Service: Care Management Author Type: Administrative Services Specialist Type: Care Mgt Initial Assessment Filed: 08/31/2023 14:02 Note Text: CARE MANAGEMENT: ASSESSMENT AND DISCHARGE PLAN SERVICE DATE: August 31, 2023 SERVICE TIME: 1:42 PM PCP: Agusot Olmstead Primary Contact: Extended Emergency Contact Information Primary Emergency Contact: LOLA SEARS Mobile Relation: Grandchild Admission Status: Inpatient Insurance Provider: [facility] MEDIC[facility] PPO Discharge Planning requested by: Per Department Practice Potential Transition Plans To Be Determined Advance Directives Current Advance Directive: None Bolt Labeler Attempted to Assist with AD Completion: Yes Action: Education Provided Current Living Arrangements and Support Lives with: Family members, Children Type of Residence: Private Residence (House) Support: Family members How do you manage to accomplish the following: Independent: Ambulation;Bathe/Shower;Dress;Meals/Meal Prep;Going to the bathroom;Medication Management;Transportation to appointments/community Current Services/Equipment Current Post-Acute Service(s): None Discharge Planning Patient Goal(s): General wellness Brewster of Choice Explained: Brewster of Choice Given: No Reason Not Given: [...] with pt at bedside. Pt lives in [place] with her grandchildren (18, 17, and 13). [...] 31, 2023 TIME: 1:42 PM CONTACT #: [id number] Evaluation note* Encounter Date Diagnosis Assessment Notes Treatment Notes Treatment Clinical Notes Jun, Vitamin B12 deficiency (ICD-10 - E53.8) [facility] Other 11-03-2023 NoteHNO ID: [id number] Author: Lakisha Kaye Service: ? Author Type: ? Type: Plan of Care Filed: 06/26/2023 9:53 AM Note Text: PHARMACY BEDSIDE DELIVERY SERVICE Patient Name: Aislinn Wheeler The marked outpatient medications were Filled at: [facility] START taking these medications acetaminophen [...] your Primary Care Provider. Lakisha Kaye PAGER: [phone] June 26, 2023 9:52 [facility]11-03-2023 Miscellaneous Notes* Telephone Encounter - Heidy Garcia RN - 06/23/2023 9:03 AM EDT Patient had left robotic partial nephrectomy by Dr. Ballard on 06/22/2023 Will call for surgical follow up once discharged [facility]23 NoteHNO ID: [id number] Author: Taurus Ballard MD Service: Urology Author Type: Physician Type: Progress Notes Filed: 06/23/2023 1:37 PM Note Text: [facility] UROLOGY PROGRESS NOTE Name: Aislinn Wheeler Bed: [id number] Date: June 23, 2023 After Hours [facility] [place] [facility] Service Pager: [phone] ASSESSMENT AND PLAN Aislinn Wheeler is a [...] La Fuente MD Urology Resident [facility] [place] Pager [phone] SUBJECTIVE -c/o pain, had a BM, no [...] is 25.39 kg/m?. Input and Output Date 06/22/23699 - 06/23/23 0606/23/23 07 - 06/24/23 0659 Shift 3213-6829 0075-0000 6260-0988 24 Hour Total 9004-4033 8310-3036 0367-0695 24 Hour Total INTAKE IV 1600 1600 Volume (mL) (lactated ringers iv infusion) 1000 1000 Volume (mL) (lactated ringers iv infusion) 600 600 Shift Total 1600 1600 OUTPUT Urine 300 058 373 7982 OR Urine Output 300 300 Output ( Indwelling Urinary Catheter 06/22/23 1130 Chaves 16 Fr) 270 244 7807 Tubes 20 40 60 Drain/Tube Output (Drain/Tube 06/22/23 1333 Lex Vega Right Lower Quadrant Abdomen Drain #1) 20 40 60 # of BMs Number of BMs 1 x 1 x Blood 50 50 Estimated Blood loss 50 50 Shift Total 350 771 939 7592 Weight (kg) 59 59 59 59 59 [...] We will call with pathology. Taurus Ballard [facility]11-02-2023 NoteHNO ID: [id number] Author: Linda Nicholson RN Service: Nursing Author Type: Registered Nurse Type: Nursing Progress Note Filed: 06/22/2023 2:15 PM Note Text: surgical dressing: surgical glue, [facility]11-02-2023 NoteHNO ID: [id number] Author: Lola Be APRN.CRNA Service: ? Author Type: Nurse Labor Relations Teacher Type: Anesthesia Procedure Notes Filed: 06/22/2023 12:24 PM Note Text: ANESTHESIOLOGY PROCEDURE NOTE Airway General Information Procedure Start Time/Medication Administration: 06/22/2023 11:22 AM Patient location during procedure: OR Patient identity confirmed: arm band, care tennis desk team member and patient Staffing SET UP / OPERATOR: Lola Be APRN.SET UP / OPERATOR Performed by: SET UP / OPERATOR Indications and Patient Condition Indications for airway [...] insertion, baseline dentition intact SIGNATURE: Lola Be APRN.SET UP / OPERATOR PATIENT NAME: Aislinn Wheeler DATE: June 22, 2023 TIME: 12:24 PM CSN: [id number] Miscellaneous Notes* Telephone Encounter - Vonnie Wilder RN - 06/15/2023 11:24 AM EDT Attempted to call patient for pre op instructions.mailbox is full and unable to LVM. Will try again. [facility] Evaluation note* Encounter Date Diagnosis Assessment Notes [...] <200 then she can use corrective scale ac hs. Reviewed with pt how to titrate [...] (ICD-10 - Z68.25) May, Other see above [facility] Other 10-02-2023 Note [id number]:127[facility] 05-22-2023 NoteCystoscopy with Botox injection [...] if you have a fever over 100 degrees.[facility] 05-22-2023 Hospital Discharge instructions Patient [...] 10:48:47 With:Lisa Porras Address: [address] [place] [address] [phone] Business (1) [address], [address] [address] [phone] Business (1) When: Unknown Comments:Office to schedule follow up in 1 month with [facility]09-28-2023 Evaluation note* Encounter Date Diagnosis Assessment [...] pcp for further recommendation- not currently on timbo or arb Apr, Hyperlipidemia (ICD-10 - E78.5) check labs- pt not taking statin Apr, Chronic kidney disease, stage 3b (ICD-10 - N18.32) keep f/u with neprology Apr, Diabetic nephropathy associated with type 2 diabetes mellitus (ICD-10 - E11.21) Keep f/u with nephrology Apr, BMI 24.0-24.9, adult (ICD-10 - Z68.24) see above [facility] Other [id number] Miscellaneous Notes* Telephone Encounter - Agusto Faulkner - 05/18/2023 12:57 PM EDT Consult notes sent back to Dr. Lisa Porras , phone [phone]. From Dr. Ballard office. documented in [facility]09-27-2023 NoteHNO ID: [id number] Author: Taurus Ballard MD Service: ? Author Type: Physician Type: Progress Notes Filed: 05/17/2023 1:35 PM Note Text: [facility] FOLLOW-UP PATIENT HISTORY AND PHYSICAL [...] 1.93 CT scan (outside records) [facility] [employer] [facility] 09/28/21 IMPRESSION: Since the prior CT scan [...] threatening or minor complicatio (more content not included)...[facility] Discharge instructions Patient Education 02/22/2023 09:35:15 [...] 12/16/2021 Document Reviewed: 12/16/2021 Elsevier Patient Education 2022 appCREAR. Follow Up Care 09/13/2022 14:59:43 With:Vern TAVERAS, EMELINA Hernandez, URO Address: When:Within 2 Month(s) Comments:w/ RIVAS [facility] 05-09-2023 Evaluation note* Encounter Date [...] N28.1) Patient follows with urology clinic in [facility] for enlarging left renal cyst. December, [...] her blood pressure persistently more than 150/90. [facility] Other 02-01-2023 Hospital Discharge instructions Patient Education [...] 07/24/2013 Document Revised: 03/27/2019 Document Reviewed: 03/27/2019 DataEmail Group Patient Education 2020 StudyCloud Follow Up Care 09/14/2022 14:44:34 With:Vern TAVERAS, EMELINA Hernandez, URO Address: When: Unknown [facility] 01-[facility]23 Hospital Discharge instructions Patient Education 09/13/2022 [...] fried and sweet foods. General instructions Take bexi-djo-beudflo and prescription medicines only as told by [...] 06/03/2010 Document Revised: 11/28/2019 Document Reviewed: 08/23/2018 DataEmail Group Patient Education 2020 appCREAR. Follow Up Care 08/24/2022 11:21:49 With:CATALINA VIRGEN, HEIDY Rodriguez, URL Address: [address] [place] [address] When: Unknown [facility] 06-09-2021 Miscellaneous Notes* Telephone Encounter - Barbara Talbot - 01/27/2021 10:30 AM EDT Scheduled 02/15 * Telephone Encounter - Barb Silva MD - 01/27/2021 9:40 AM EDT Please schedule hospital follow up with Guy Overton Deitzer, or Sasha. Virtual ok documented in [facility]06-[facility]-2021 NoteHNO ID: [id number] Author: Griselda Diaz (Dish Network Installer) Service: ? Author Type: ? Type: Plan [...] Generic drug: insulin detemir U-100 Griselda Diaz (Dish Network Installer) PAGER: paris January 21, 2021 4:27 [id number] NoteHNO ID: [id number] Author: ELIZABETH Kothari Service: Care Management Author Type: Administrative Services Specialist Type: Care Mgt Progress Note Filed: 01/21/2021 1:39 PM Note Text: CARE MANAGEMENT DISCHARGE NOTE SERVICE DATE: 01/21/2021 SERVICE TIME: 1300 LOS: 4 days Admission Date: 01/17/2021 DISCHARGE ARRANGEMENT (list agency and phone number) Discharge Arrangement: Home;Home Jail Care: Nursing;PT;OT [facility] ASSESSMENT: Maira Davila to transport home [phone] HANDOFF COMMUNICATION: Handoff to: Other Caregiver;Primary Care Physician Primary Care Physician Name/Phone: Madeline Jordan PA-C Other Caregiver Name/Phone: [facility] TRANSPORTATION ARRANGEMENTS: Transportation Arrangements: Car (Family to transport) ADDITIONAL CONTACT RESOURCES: [facility] not able to accept. [place] of choice provided and sent to first available to accept to her service area. [facility] willing to accept. Pt concerned she does not have Gastrofy part B to cover services. I spoke with maira who plans on paying for services out of pocket until pt's insurance becomes active February 18, 2021 Discharge Information Row Name ED to Hosp-Admission (Current) from 01/17/[address] Care Agency [facility] Fax# Care to start after your appointment with internal medicine on 01/25/2021 for additional orders. The agency will be contacting you to set this up Durable Medical Equipment [facility] [employer] Equipment Needed Walker was delivered to hospital room prior to discharge Andi willing to accept pending pt has her initial appointment with internal medicine on 01/25/2021. Both pt and maira Davila were advised. Dr Hansen also provided script for outpt therapy should home care fall through or cost too high for maira to cover. Lola to call Andi to discuss further. Walker was delivered to room and prescription was sent to [facility]. Davila to greens picker. No other homegoing needs. SIGNATURE: ELIZABETH Kothari PATIENT NAME: Aislinn Wheeler DATE: January 21, 2021 TIME: 1:32 PM PAGER/CONTACT #: [phone] [id number] NoteHNO ID: [id number] Author: Derik Daniel Service: Care Management Author Type: Resource Center Employee Counselor Type: Care Mgt Progress Note Filed: 01/21/2021 11:24 AM Note Text: CARE MANAGEMENT PROGRESS NOTE SERVICE DATE: 01/21/2021 SERVICE TIME: 950 LOS: 4 days IMM Follow Up Copy Given: Yes Copy given to:: Patient Method: In Person SIGNATURE: Derik Daniel PATIENT NAME: Aislinn Wheeler DATE: January 21, 2021 TIME: 11:23 AM PAGER/CONTACT #: [phone] [id number] NoteHNO ID: [id number] Author: Ailyn Salas RN Service: Care Management Author Type: Registered Nurse Type: Care Mgt Progress Note Filed: 01/20/2021 3:29 PM Note Text: CARE MANAGEMENT PROGRESS NOTE SERVICE DATE: 01/20/2021 SERVICE TIME: 3:09 PM LOS: 3 days [place] of Choice Given: Yes Level of Care Discussed: Home Care Financial Disclosure Provided: No Financial Disclosure Comments: [facility] does not service area Provider [...] not have a PCP. [facility] can provide a visiting [...] 20, 2021 TIME: 3:09 PM PAGER/CONTACT #: [phone] NoteHNO ID: [id number] Author: Inna Hansen DO Service: Hospital Medicine Author Type: Physician Type: Progress Notes Filed: 01/20/2021 12:37 PM Note Text: DEPARTMENT OF HOSPITAL MEDICINE PROGRESS NOTE SERVICE DATE: 01/20/2021 SERVICE TIME: 10:37 AM Hospital Medicine/Primary Attending: Inna Hansen DO NIGHT AND WEEKEND COVERAGE: DELMY COVERAGE: Days: [phone], please contact via [email or web address] Nights: [phone], please page CC Hospitalist Night coverage pager [phone] Subjective INTERVAL HPI: nausea and vomiting this [...] Non-Pharmacologic VTE Prophylaxis/Anticoagulants 01/17/212214 pneumatic compression stockings ([place], [place]) 01/17/212214 activity - mobilize patient ([place]) VTE Prophylaxis: VTE prophylaxis appropriate Disposition: Primo Hansen DO January 20, 2021 10:39 [id number] NoteHNO ID: [id number] Author: Benjamin Bernal MD Service: Urology Author [...] Wendy Bernal MD January 19, 2021 4:12 [id number] NoteHNO ID: [id number] Author: Shelby Lucero, PharmD Service: Pharmacy Author Type: Pharmacist Type: Plan of Care Filed: 01/19/2021 11:02 AM Note Text: PHARMACY MEDICATION REVIEW Patient Name: Aislinn Wheeler : 1960 The following medications were updated within the [employer]PER[employer] medication list: Medications ADDED to [employer]ILE[employer]PERVISOR medication list ? Albuterol HFA (replaced nebs) ? Levemir (replaced Lantus) Medications CHANGED on [employer]PERVISOR medication list ? Lyrica (added instructions) ? Symbicort (added instructions) Medications REMOVED from [employer]PER[employer] medication list ? Diltiazem ? Cymbalta ? [...] big . Call placed to [facility] pharmacy to clarify prescribed dose of insulin, and the only prescription for insulin [facility] has on file is for Relion 70/30 inject 25 units BID. [facility] pharmacist states this was prescribed 02/19/2020 but never picked up. The below information represents the best possible medication history: Yes Medication history completed by: Pharmacist: Shelby Lucero PharmD Source of history: Patient: Reliability of source: Appears reliable, clearly identified: [facility] (phone call) Medication nonadherence identified: Unable to assess - it is clear the patient is noncompliant with her medications (admits she has been off her meds, no insulin fills at [facility] despite patient report), but at this time unable to assess reason for nonadherence. Reconciliation completed: Yes All TOILE[employer]PER[employer]OR medications addressed by LIP and Medication reconciliation completed by: Shelby Lucero PharmD Medications with dose or frequency intentionally adjusted at admission: ? [place] modified to 5/325 mg q6h PRN New medications at admission: ? Ceftriaxone Note patient ordered insulin regimen (Lantus 15 units QHS + sliding scale Humalog) and based on blood glucose readings, this is appropriate Patient interested in Bedside Delivery Services or using [facility] OP Pharmacy at discharge? Unable to assess Preferred outpatient pharmacy: [facility] [id number] - [place] [address] [facility] - [phone] Allergies: Latex Rash Comment:Added based on information [...] as instructed twice daily. Shelby Lucero PharmD 01/19/2021von [id number] NoteHNO ID: [id number] Author: Inna Hansen DO Service: Hospital Medicine Author Type: Physician Type: Progress Notes Filed: 01/19/2021 2:24 PM Note Text: DEPARTMENT OF HOSPITAL MEDICINE PROGRESS NOTE SERVICE DATE: 01/19/2021 SERVICE TIME: 9:30 AM Hospital Medicine/Primary Attending: Inna Hansen DO NIGHT AND WEEKEND COVERAGE: DELMY COVERAGE: Days: [phone], please contact via [employer] Nights: [phone], please page CC Hospitalist Night coverage pager [phone] Subjective INTERVAL HPI: no overnight events. Denies [...] Most recent imaging Assessment/Plan Problem List Sepsis ([facility]) POA: Yes Pyelonephritis POA: Yes Hydronephrosis due to obstruction of ureter POA: Yes Acute cystitis without hematuria POA: Unknown Acute bilateral obstructive uropathy POA: Yes Hyponatremia POA: Yes ANATOLIY (acute kidney injury) ([facility]) POA: Yes Hyperkalemia POA: Yes Principal Problem: Sepsis ([facility]) Pyelonephritis Complicated UTI Hydronephrosis due to [...] Non-Pharmacologic VTE Prophylaxis/Anticoagulants 01/17/212214 pneumatic compression stockings ([place]) 01/17/212214 activity - mobilize patient ([place]) VTE Prophylaxis: VTE prophylaxis appropriate Disposition: Home Discussed with granddaughter Lola by phone with patient's permission. Inna Hansen DO January 19, 2021 9:33 [id number] History of Past illness Narrative* Problem Noted Date Resolved Date Acute cystitis without hematuria 01/18/2021 01/21/2021 Pyelonephritis 01/17/2021 01/21/2021 Sepsis 01/17/2021 01/21/2021 Hyponatremia 01/17/2021 01/21/2021 Hyperkalemia 01/17/2021 01/21/2021 Hydronephrosis due to obstruction of ureter 12/2101/21/2021 documented as of this encounter (statuses as of 01/27/2021) [facility]-31-2021 History of Past illness Narrative* Problem Noted Date Diagnosed Date Resolved Date Acute cystitis without hematuria 01/18/2021 01/21/2021 Pyelonephritis 01/17/2021 01/21/2021 Sepsis 01/17/2021 01/21/2021 Hyponatremia 01/17/2021 01/21/2021 Hyperkalemia 01/17/2021 01/21/2021 Hydronephrosis due to obstruction of ureter 01/17/2021 01/21/2021 documented as of this encounter (statuses as of 06/09/2023) [facility]-31-2021 History of Past illness Narrative* Problem Noted Date Diagnosed Date Resolved Date Acute cystitis without hematuria 01/18/2021 01/21/2021 Pyelonephritis 01/17/2021 01/21/2021 Sepsis 01/17/2021 01/21/2021 Hyponatremia 01/17/2021 01/21/2021 Hyperkalemia 01/17/2021 01/21/2021 Hydronephrosis due to obstruction of ureter 01/17/2021 01/21/2021 documented as of this encounter (statuses as of 06/15/2023) [facility]2021 History of Past illness Narrative* Problem Noted Date Diagnosed Date Resolved Date Acute cystitis without hematuria 01/18/2021 01/21/2021 Pyelonephritis 01/17/2021 01/21/2021 Sepsis 01/17/2021 01/21/2021 Hyponatremia 01/17/2021 01/21/2021 Hyperkalemia 01/17/2021 01/21/2021 Hydronephrosis due to obstruction of ureter 01/17/2021 01/21/2021 documented as of this encounter (statuses as of 06/19/2023) [facility]2021 History of Past illness Narrative* Problem Noted Date Diagnosed Date Resolved Date Acute cystitis without hematuria 01/18/2021 01/21/2021 Pyelonephritis 01/17/2021 01/21/2021 Sepsis 01/17/2021 01/21/2021 Hyponatremia 01/17/2021 01/21/2021 Hyperkalemia 01/17/2021 01/21/2021 Hydronephrosis due to obstruction of ureter 01/17/2021 01/21/2021 documented as of this encounter (statuses as of 06/23/2023) [facility]2021 History of Past illness Narrative* Problem Noted Date Diagnosed Date Resolved Date Acute cystitis without hematuria 01/18/2021 01/21/2021 Pyelonephritis 01/17/2021 01/21/2021 Sepsis 01/17/2021 01/21/2021 Hyponatremia 01/17/2021 01/21/2021 Hyperkalemia 01/17/2021 01/21/2021 Hydronephrosis due to obstruction of ureter 01/17/2021 01/21/2021 documented as of this encounter (statuses as of 07/05/2023) [facility]-31-2021 NoteHNO ID: [id number] Author: Inna Hansen DO Service: Hospital Medicine Author Type: Physician Type: Progress Notes Filed: 01/18/2021 4:10 PM Note Text: DEPARTMENT OF HOSPITAL MEDICINE PROGRESS NOTE SERVICE DATE: 01/18/2021 SERVICE TIME: 8:57 AM Hospital Medicine/Primary Attending: Inna Hansen DO NIGHT AND WEEKEND COVERAGE: DELMY COVERAGE: Days: [phone], please contact via [employer] Nights: [phone], please page CC Hospitalist Night coverage pager [phone] Subjective INTERVAL HPI: no overnight events. Denies [...] Most recent imaging Assessment/Plan Problem List Sepsis ([facility]) POA: Yes Pyelonephritis POA: Yes Hydronephrosis due to obstruction of ureter POA: Yes Acute cystitis without hematuria POA: Unknown Acute bilateral obstructive uropathy POA: Yes Hyponatremia POA: Yes ANATOLIY (acute kidney injury) ([facility]) POA: Yes Hyperkalemia POA: Yes Principal Problem: Sepsis ([facility]) Pyelonephritis Complicated UTI Hydronephrosis due to [...] Non-Pharmacologic VTE Prophylaxis/Anticoagulants 01/17/212214 pneumatic compression stockings ([place] 01/17/212214 activity - mobilize patient ([place]) VTE Prophylaxis: VTE prophylaxis appropriate Disposition: Home SIGNATURE: Inna Hansen DO PATIENT NAME: Aislinn Wheeler DATE: January 18, 2021 TIME: 8:57 [facility] [id number] NoteHNO ID: [id number] Author: Taurus Ballard MD Service: Urology Author [...] cause of her urinary retention. Taurus Ballard, [facility] [id number] NoteHNO ID: [id number] Author: RT Dayanara(R) Service: Radiology Author Type: Route Delivery Manager Type: Progress Notes Filed: 01/17/2021 8:04 PM [...] BY: RT Dayanara(R) January 17, 2021 8:03 [facility] [id number] NoteHNO ID: [id number] Author: RT Dayanara(R) Service: Radiology Author Type: Route Delivery Manager Type: Progress Notes Filed: 01/17/2021 5:30 PM [...] BY: RT Dayanara(Raquel) January 17, 2021 5:30 [facility] [id number] NoteHNO ID: [id number] Author: RT Zaynab(R) Service: Radiology Author Type: Route Delivery Manager Type: Progress Notes Filed: 01/17/2021 4:23 PM [...] Not applicable SIGNED BY: Lila Workman RT (Raquel) January 17, 2021 4:22 [facility] [id number] NoteHNO ID: [id number] Author: AHSAN Barlow Service: ? Author Type: Clinical Route Delivery Manager Type: Progress Notes Filed: 01/17/2021 4:19 PM [...] BY: AHSAN Dozier January 17, 2021 4:19 [facility] Future Appointments Appointment Date:12/13/2022 03:00:00 PM Scheduled Provider:HEIDY ARNOLD PA-C Location:[facility] Appointment Type:URO Office Visit [facility] evaluation + Plan note Future Appointments Appointment Date:10/26/2022 10:00:00 AM Scheduled Provider:Lisa Porras MD Location:[facility] Appointment Type:URO Office Visit Appointment Date:12/13/2022 03:00:00 PM Scheduled Provider:HEIDY ARNOLD PA-C Location:[facility] Appointment Type:URO Office Visit [facility] evaluation + Plan note Future Appointments Appointment Date:05/03/2023 10:00:00 AM Scheduled Provider:Lisa Porras MD Location:[facility] Appointment Type:URO Office Visit [facility] evaluation + Plan note Future Appointments Appointment Date:05/03/2023 10:00:00 AM Scheduled Provider:Lisa Porras MD Location:[facility] Appointment Type:URO Office Visit Diagnostic Tests Pending * [facility] Future Appointments Appointment Date:05/15/2023 12:30:00 PM Scheduled Provider: Location:[facility] Appointment Type:Urology CALL PAT FT Appointment Date:05/22/2023 10:30:00 AM Scheduled Provider: Location:[facility] Appointment Type:Urology FT Diagnostic Tests Pending * Urine Culture [facility] Future Appointments Appointment Date:06/28/2023 10:45:00 AM Scheduled Provider:Lisa Porras MD Location:[facility] Appointment Type:URO [facility] Future Appointments Appointment Date:06/28/2023 10:45:00 AM Scheduled Provider:Lisa Porras MD Location:[facility] Appointment Type:URO Office Visit Diagnostic Tests Pending * Urine Culture [facility]08[facility]23 [facility] Future Appointments Appointment Date:07/18/2023 11:20:00 AM Scheduled Provider:HEIDY ARNOLD PA-C Location:[facility] Appointment Type:URO Office Visit [facility] evaluation + Plan note Future Appointments Appointment Date:10/10/2023 11:40:00 AM Scheduled Provider:HEIDY ARNOLD PA-C Location:[facility] Appointment Type:URO Office Visit [facility] evaluation [facility]No [facility] [employer] Other Evaluation note* Diagnosis Kidney cyst, acquired- Primary Acquired cyst of kidney [facility]* Diagnosis Reflex sympathetic dystrophy of right upper extremity [facility] assessment information [facility] Work Phone: Evaluation note* Diagnosis Reflex sympathetic dystrophy of right upper extremity Complex regional pain syndrome type 1 of right upper extremity [facility]* Diagnosis Reflex sympathetic dystrophy of right upper extremity Complex regional pain syndrome type 1 of right upper extremity [facility]* Diagnosis Other hydronephrosis- Primary Screening for genitourinary condition Screening for other and unspecified genitourinary condition documented in this encounter [facility] note* Diagnosis Retention of urine- Primary Retention of urine, unspecified Screening for genitourinary condition Screening for other and unspecified genitourinary condition Type 2 diabetes mellitus with hyperglycemia, with long-term current use of insulin ([facility]) BURKE (stress urinary incontinence, female) Female stress incontinence documented [facility]* Diagnosis Lung nodule- Primary Solitary pulmonary nodule documented in this encounter [facility] note* Diagnosis Stress incontinence- Primary Female stress incontinence Dysfunctional voiding of urine Unspecified disorder of urethra and urinary tract documented in this encounter [facility] note* Diagnosis Preop examination- Primary Preoperative examination, [...] Female stress incontinence documented in this encounter [facility] note* Diagnosis Preop examination- Primary Preoperative examination, [...] with long-term current use of insulin (HCC) Other hydronephrosis [facility] Diagnosis Preop examination- Primary Preoperative examination, [...] with long-term current use of insulin (HCC) Stage 3b chronic kidney disease (HCC)- Primary Retention of urine Retention of urine, unspecified Type 2 diabetes mellitus with hyperglycemia, with long-term current use of insulin (HCC) Other hydronephrosis BURKE (stress urinary incontinence, female) Female stress incontinence Bladder compliance low Low bladder compliance [facility]* Diagnosis Preop examination- Primary Preoperative examination, [...] hyperglycemia, with long-term current use of insulin ([facility]) Screening for genitourinary condition Screening for other and unspecified genitourinary condition [facility]* Diagnosis Onset Date Resolution Status Anemia of renal disease acut e B12 deficiency acute CKD stage 3b, GFR 30-44 ml/min acute 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 acute Hyperkalemia acute Hyperparathyroidism acute Hypertensive nephropathy acu te Renal cyst acute [facility] Work Phone: Evaluation note* Diagnosis Encounter for subsequent annual wellness visit (AWV) in Medicare patient- Primary Age related osteoporosis, unspecified pathological fracture presence ([facility]) Stage 3 chronic kidney disease, unspecified whether stage 3a or 3b CKD (HCC) ([facility]) Primary hypertension ([facility]) Unspecified essential hypertension Type 2 diabetes mellitus with hyperglycemia, with long-term current use of insulin ([facility]) Vitamin D deficiency Type 2 diabetes mellitus with diabetic neuropathy, unspecified whether supervisor long goods insulin use ([facility]) Type 2 diabetes mellitus with foot ulcer, with long-term current use of insulin ([facility]) Stage 3a chronic kidney disease (HCC) ([facility]) Neurogenic bladder Neurogenic bladder, NOS Visual impairment Unspecified visual loss Herpes simplex vulvovaginitis- Primary Primary hypertension ([facility])- Primary Unspecified essential hypertension Type 2 diabetes mellitus with hyperglycemia, with long-term current use of insulin ([facility]) Stage 3 chronic kidney disease, unspecified whether stage 3a or 3b CKD (HCC) ([facility]) Stage 3a chronic kidney disease (HCC) ([facility]) Urinary incontinence without sensory awareness Incontinence without sensory awareness Continuous leakage of urine Continuous leakage Primary hypertension ([facility])- Primary Unspecified essential hypertension Acute cystitis without hematuria Type 2 diabetes mellitus with diabetic neuropathy, unspecified whether shelter insulin use ([facility]) UTI symptoms Stage 3a chronic kidney disease (HCC) ([facility]) Neurogenic bladder Neurogenic bladder, NOS Type 2 diabetes mellitus with hyperglycemia, with long-term current use of insulin ([facility]) Essential (primary) hypertension ([facility]) Unspecified essential hypertension Chronic cough- Primary Cough Type 2 diabetes mellitus with diabetic chronic kidney disease ([facility]) Chronic kidney disease, stage 3b (HCC) ([facility]) Hyperparathyroidism, unspecified ([facility]) Hyperparathyroidism, unspecified Rheumatoid arthritis, unspecified ([facility]) Malignant neoplasm of cervix uteri, unspecified ([facility]) Type 2 diabetes mellitus with hyperglycemia, with long-term current use of insulin ([facility]) Type 2 diabetes mellitus with hyperglycemia, with long-term current use of insulin ([facility])- Primary Type 2 diabetes mellitus with diabetic chronic kidney disease ([facility]) Chronic kidney disease, stage 3b (HCC) ([facility]) Hyperparathyroidism, unspecified ([facility]) Hyperparathyroidism, unspecified Malignant neoplasm of cervix uteri, unspecified ([facility]) Rheumatoid arthritis, unspecified (CMS/HCC) Essential (primary) hypertension (CMS/HCC) Unspecified essential hypertension 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 Iron deficiency anemia, unspecified iron deficiency anemia type Primary hypertension (CMS/HCC) Unspecified essential hypertension Type 2 diabetes mellitus with diabetic neuropathy, unspecified whether supervisor long goods insulin use (CMS/HCC) RSD (reflex sympathetic dystrophy) Unspecified reflex sympathetic dystrophy Continuous leakage of urine Continuous leakage 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, left, sequela ([facility]) Skin lesion of face Unspecified disorder of skin and subcutaneous tissue documented in this encounter [facility]* Diagnosis Reflex sympathetic dystrophy of right upper extremity Complex regional pain syndrome type 1 of right upper extremity documented [facility] Diagnosis Complex regional pain syndrome type 1 of right upper extremity- Primary Encounter for long-term opiate analgesic use Encounter for long-term (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 of other medications [facility] Narrative - Reported* Type Description Date [...] SURGERY Hospitalization History [facility] 2014 Hospitalization History [facility] SEPSIS 05/2022 [place] [employer] Other [employer] general Narrative - Reported* Type Description Date [...] SURGERY Hospitalization History [facility] 2015 Hospitalization History [facility] SEPSIS 05/2022 [place] Other Hospital course Narrative No data available for this section [facility] Hospital Discharge instructions No data available for this section [facility] InstructionsNot on filedocumented in this encounter [facility] on filedocumented in this encounter [facility] System[facility]ructionsNot on filedocumented in this encounter [facility] SystemInstructionsNot on filedocumented in this encounter [facility] No data available for this section [facility] reason for referral (narrative)* Diagnostic Procedure Only (Routine) - Pending Review Specialty Diagnoses / Procedures Referred By Danny hensley Referred To Contact US IMAGING Diagnoses Kidney cyst, acquired Procedures US KIDNEY/BLADDER US RETROPERITONEAL REAL TIME W/IMAGE COMPLETE Taurus Ballard MD [address] [place] [address] [facility] [place] [address] Referral ID Status Reason Start Date Expiration Date Visits Requested Visits Authorized [id number] Pending Review Auto-Generat ed Referral 10/05/2023 08/03/2024 1 1 [facility] for referral (narrative)* Outpatient Procedure (Routine) - New Request Specialty Diagnoses / Procedures Referred By Danny hensley Referred To Contact [facility] Diagnoses Retention of urine BURKE (stress urinary incontinence, female) Procedures FLUROURODYNAMICS WITH EMG EMG STDS ANAL/URTL SPHNCTR OTH/THN NDL Carmenza Nolen MD [address] [place] [address] [facility] [address] [place] [address] Referral ID Status Reason Start Date Expiration Date Visits Requested Visits Authorized [id number] New Request Auto-Generat ed Referral 03/26/2024 03/26/2025 1 1 [facility] for visit NarrativeReferral Agusto Cainjosue, New pt 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 2 IDDM apt 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, 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, [employer] Other Summary Purpose Family History Relationship Condition Age at Onset Recorded Date/T lalit brother Heart disease Unknown Hypertension Unknown father Unknown Heart disease Unknown Diabetes mellitus Unknown Malignant neoplasm Unknown Not Specified Heart disease Unknown Unknown History of stroke Unknown natural son Heart disease Unknown sister Hypertension Unknown Relationship Condition Age at Onset Recorded Date/T lalit brother Heart disease Unknown Hypertension Unknown father Unknown Heart disease Unknown Diabetes mellitus Unknown Malignant neoplasm Unknown mother Heart disease Unknown Unknown History of stroke Unknown son Heart disease Unknown sister Hypertension Unknown Advance Directives Documents on File Type Date Recorded 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 Advance Directive(s) 01/17/2021 3:49 PM Advance Directive Response Recorded Date/ Time Advance Directives No April 09, 2024 11:42am Reason for Referral Specialty Diagnoses / Procedures Referred By Danny hensley Referred To Contact CT IMAGING Diagnoses Other hydronephrosis Procedures CT UROGRAM WO/W IVCON CT ABD & PELVIS W/WO CONTRST 1+ BODY REGTaurus Gutierrez MD [address] [place] [address] [place] [id number] Referral ID Status Reason Start Date Expiration Date Visits Requested Visits Authorized [id number] Pending Review Auto-Generat ed Referral 01/19/2024 02/10/2025 1 1 Referred by: Vern TAVERAS, Lisa Montiel Chief Complaint and Reason for Visit Chief Complaint Renal 4 Month Follow Up Chief Complaint RENAL F/U Reason for Visit Anemia of renal dise ase B12 deficiency CKD stage 3b, GFR 30-44 ml/min Diabetic nephropathy associated with type 2 diabetes mellitus Hyperkalemia Hyperparathyroidism Hypertensive nephropathy Renal cyst Additional Source Comments INFORMATION SOURCE (unrecogn ized section and content) DATE CREATED AUTHOR 01/23/2021 [facility] DATE CREATED AUTHOR AUTHOR'S ORGANIZ ATION 01/04/2023 [facility] DATE CREATED AUTHOR AUTHOR'S ORGANIZ ATION 10/19/2023 [facility] DATE CREATED AUTHOR AUTHOR'S ORGANIZ ATION 11/03/2023 [facility] DATE CREATED AUTHOR AUTHOR'S ORGANIZ ATION 03/05/2024 [facility] DATE CREATED AUTHOR AUTHOR'S ORGANIZ ATION 04/02/2024 [facility] DATE CREATED AUTHOR AUTHOR'S ORGANIZ ATION 04/29/2024 [facility] DATE CREATED AUTHOR AUTHOR'S ORGANIZ ATION 06/13/2024 [facility] DATE CREATED AUTHOR AUTHOR'S ORGANIZ ATION 06/28/2024 [facility] DATE CREATED AUTHOR AUTHOR'S ORGANIZ ATION 07/05/2024 [facility] DATE CREATED AUTHOR AUTHOR'S ORGANIZ ATION 07/08/[address] [facility] Source Comments (unrecognize d section and content) In the event this informatio n is protected by the Federal Confidentiality of Alcohol and Drug Abuse Patient Records regulations: The Federal rules restrict any use of the information to criminally investigate or prosecute any alcohol or drug abuse patient.Premier HealthIn the event this information is protected by the Federal Confidentiality of Alcohol and Drug Abuse Patient Records regulations: The Federal rules restrict any use of the information to criminally investigate or prosecute any alcohol or drug abuse patient.Premier HealthIn the event this information is protected by the Federal Confidentiality of Alcohol and Drug Abuse Patient Records regulations: The Federal rules restrict any use of the information to criminally investigate or prosecute any alcohol or drug abuse patient.Premier HealthIn the event this information is protected by the Federal Confidentiality of Alcohol and Drug Abuse Patient Records regulations: The Federal rules restrict any use of the information to criminally investigate or prosecute any alcohol or drug abuse patient.Premier HealthIn the event this information is protected by the Federal Confidentiality of Alcohol and Drug Abuse Patient Records regulations: The Federal rules restrict any use of the information to criminally investigate or prosecute any alcohol or drug abuse patient.Premier HealthIn the event this information is protected by the Federal Confidentiality of Alcohol and Drug Abuse Patient Records regulations: The Federal rules restrict any use of the information to criminally investigate or prosecute any alcohol or drug abuse patient.Premier HealthIn the event this information is protected by the Federal Confidentiality of Alcohol and Drug Abuse Patient Records regulations: The Federal rules restrict any use of the information to criminally investigate or prosecute any alcohol or drug abuse patient.Premier HealthIn the event this information is protected by the Federal Confidentiality of Alcohol and Drug Abuse Patient Records regulations: The Federal rules restrict any use of the information to criminally investigate or prosecute any alcohol or drug abuse patient.Premier HealthIn the event this information is protected by the Federal Confidentiality of Alcohol and Drug Abuse Patient Records regulations: The Federal rules restrict any use of the information to criminally investigate or prosecute any alcohol or drug abuse patient.Premier HealthIn the event this information is protected by the Federal Confidentiality of Alcohol and Drug Abuse Patient Records regulations: The Federal rules restrict any use of the information to criminally investigate or prosecute any alcohol or drug abuse patient.Premier HealthIn the event this information is protected by the Federal Confidentiality of Alcohol and Drug Abuse Patient Records regulations: The Federal rules restrict any use of the information to criminally investigate or prosecute any alcohol or drug abuse patient.Premier HealthIn the event this information is protected by the Federal Confidentiality of Alcohol and Drug Abuse Patient Records regulations: The Federal rules restrict any use of the information to criminally investigate or prosecute any alcohol or drug abuse patient.Premier HealthIn the event this information is protected by the Federal Confidentiality of Alcohol and Drug Abuse Patient Records regulations: The Federal rules restrict any use of the information to criminally investigate or prosecute any alcohol or drug abuse patient.Premier HealthIn the event this information is protected by the Federal Confidentiality of Alcohol and Drug Abuse Patient Records regulations: The Federal rules restrict any use of the information to criminally investigate or prosecute any alcohol or drug abuse patient.Premier HealthIn the event this information is protected by the Federal Confidentiality of Alcohol and Drug Abuse Patient Records regulations: The Federal rules restrict any use of the information to criminally investigate or prosecute any alcohol or drug abuse patient.Premier HealthIn the event this information is protected by the Federal Confidentiality of Alcohol and Drug Abuse Patient Records regulations: The Federal rules restrict any use of the information to criminally investigate or prosecute any alcohol or drug abuse patient.Premier HealthIn the event this information is protected by the Federal Confidentiality of Alcohol and Drug Abuse Patient Records regulations: The Federal rules restrict any use of the information to criminally investigate or prosecute any alcohol or drug abuse patient.Premier HealthIn the event this information is protected by the Federal Confidentiality of Alcohol and Drug Abuse Patient Records regulations: The Federal rules restrict any use of the information to criminally investigate or prosecute any alcohol or drug abuse patient.Premier HealthIn the event this information is protected by the Federal Confidentiality of Alcohol and Drug Abuse Patient Records regulations: The Federal rules restrict any use of the information to criminally investigate or prosecute any alcohol or drug abuse patient.Premier HealthIn the event this information is protected by the Federal Confidentiality of Alcohol and Drug Abuse Patient Records regulations: The Federal rules restrict any use of the information to criminally investigate or prosecute any alcohol or drug abuse patient.Premier HealthIn the event this information is protected by the Federal Confidentiality of Alcohol and Drug Abuse Patient Records regulations: The Federal rules restrict any use of the information to criminally investigate or prosecute any alcohol or drug abuse patient.Premier HealthIn the event this information is protected by the Federal Confidentiality of Alcohol and Drug Abuse Patient Records regulations: The Federal rules restrict any use of the information to criminally investigate or prosecute any alcohol or drug abuse patient.[facility] Reason for Visit (unrecogniz ed section and [...] c/o UNCONTROLLED leakage - STOP ICS X2 [id number] Reason Comments Radiology CT Specialty Diagnoses / Procedures Referred By Contac t Referred To Contact CT IMAGING Diagnoses Other hydronephrosis Procedures CT UROGRAM WO/W IVCON CT ABD & PELVIS W/WO CONTRST 1+ BODY REGTaurus Gutierrez MD [address] [place] [id number] Imaging [facility] Referral ID Status Reason Start Date Expiration Date V isits Requested Visits Authorized [id number] Closed Auto-Generate d Referral 01/19/2024 02/10/2025 1 1 Reason Comments Consult Reason Onset Date Comments Med Refill 06/11/2024 Reason Comments Director Of Rehabilitation And Wellness - Other Returning Patient's Call Reason Comments Arm Injury Reason Onset Date Comments Med Refill 07/15/2024 Patient Care team informatio n (unrecognized section and content) Team Status: Active Member Role Status Dates Sumi Lentz APRN INSURANCE VERIFICATION REP-C Primary Care Provider Active Team Status: Active Member Role Status Dates Sumi Lentz APRN INSURANCE VERIFICATION REP-C Primary Care Provider Active Start: April 26, 2024 End: April 27, 2024 Rafi Marcelo DO Attending Provider Active Sta rt: April 26, 2024 End: April 27, 2024 Shaikh Leon MD Active Start: 2023 End: April 27, 2024 Team Status: Active Member Role Status Dates Sumi Lentz APRN INSURANCE VERIFICATION REP-C Primary Care Provider Active Start: May 10, 2024 Rafi Marcelo DO Attending Provider Active Sta rt: May 10, 2024 Team Status: Inactive Member Role Status Dates Sumi Lentz APRN INSURANCE VERIFICATION REP-C Primary Care Provider Active Start: June 05, 2024 End: June 05, 2024 Eli Sprague MD Attending Provider Active Star t: June 05, 2024 End: June 05, 2024 Clean Room Assembler Relationship Specialty Start Date End Date RicAgusto casillas [address] [place] [address] PCP - General 05/17/23 Lisa Porras MD [address] [place] [address] Referring Urology 05/11/23 Clean Room Assembler Relationship Specialty Start Date End Date Agusto Olmstead [address] [place] [address] PCP - General 05/17/23 Lisa Porras MD [address] [place] [address] Referring Urology 05/11/23 Clean Room Assembler Relationship Specialty Start Date End Date Agusto Olmstead [address] [place] [address] PCP - General 05/17/23 Lisa Porras MD [address] [place] [address] Referring Urology 05/11/23 Clean Room Assembler Relationship Specialty Start Date End Date Agusto Olmstead [address] [place] [place] [address] PCP - General 05/17/23 Lisa Porras MD [address] [place] [address] Referring Urology 05/11/23 Clean Room Assembler Relationship Specialty Start Date End Date Agusto Olmstead, DISTRIBUTION ESTIMATOR-PRODUCT MANAGENT INTERN [address] [place] [phone] PCP - General Nurse Practitioner 11/10/22 Clean Room Assembler Relationship Specialty Start Date End Date RicchristianomundoAgusto [address] [place] [place] [address] PCP - General 05/17/23 Lisa Porras MD [address] [place] [address] Referring Urology 05/11/23 Clean Room Assembler Relationship Specialty Start Date End Date Agusto Olmstead [address] [place] [place] [address] PCP - General 05/17/23 Lisa Porras MD [address] [place] [address] Referring Urology 05/11/23 Team Status: Inactive Member Role Status Dates Eli Sprague MD Attending Provider Active Star t: August 01, 2023 End: August 01, 2023 Clean Room Assembler Relationship Specialty Start Date End Date Agusto Olmstead, DISTRIBUTION ESTIMATOR-PRODUCT MANAGENT INTERN [address] [place] [phone] PCP - General Nurse Practitioner 11/10/22 Clean Room Assembler Relationship Specialty Start Date End Date Agusto Olmstead, DISTRIBUTION ESTIMATOR-PRODUCT MANAGENT INTERN [address] [place] [address] PCP - General Nurse Practitioner 11/10/22 Clean Room Assembler Relationship Specialty Start Date End Date Agusto Olmstead [address] [place] [address] PCP - General 05/17/23 Lisa Porras MD [address] [place] [address] Referring Urology 05/11/23 Agusto Olmstead [address] [place] [address] Referring 01/04/24 Clean Room Assembler Relationship Specialty Start Date End Date Agusto Olmstead [address] [place] [address] PCP - General 05/17/23 Lisa Porras MD [address] [place] [address] Referring Urology 05/11/23 Agusto Olmstead [address] [place] [address] Referring 01/04/24 Clean Room Assembler Relationship Specialty Start Date End Date Agusto Olmstead [address] [place] [address] PCP - General 05/17/23 Lisa Porras MD [address] [place] [address] Referring Urology 05/11/23 Ricchristianoholz, Agusto [address] [facility] [place] [address] Referring 01/04/24 Clean Room Assembler Relationship Specialty Start Date End Date Agusto Olmstead [address] [place] [address] PCP - General 05/17/23 Lisa Porras MD [address] [place] [address] Referring Urology 05/11/23 Agusto Olmstead [address] [place] [address] Referring 01/04/24 Clean Room Assembler Relationship Specialty Start Date End Date Agusto Olmstead [address] [place] [address] PCP - General 05/17/23 Lisa Porras MD [address] [place] [address] Referring Urology 05/11/23 Agusto Olmstead [address] [place] [address] Referring 01/04/24 Clean Room Assembler Relationship Specialty Start Date End Date Agusto Olmstead [address] [place] [address] PCP - General 05/17/23 Lisa Porras MD [address] [place] [address] Referring Urology 05/11/23 Agusto Olmstead [address] [place] [address] Referring 01/04/24 Clean Room Assembler Relationship Specialty Start Date End Date Agusto Olmstead [address] [place] [address] PCP - General 05/17/23 Lisa Porras MD [address] [place] [address] Referring Urology 05/11/23 [address]usto Olmstead [address] [place] [address] Referring 01/04/24 Clean Room Assembler Relationship Specialty Start Date End Date Agusto Olmstead [address] [place] [address] PCP - General 05/17/23 Lisa Porras MD [address] [place] [address] Referring Urology 05/11/23 Agusto Olmstead [address] [place] [address] Referring 01/04/24 Clean Room Assembler Relationship Specialty Start Date End Date Agusto Olmstead [address] [place] [address] PCP - General 05/17/23 Lisa Porras MD [address] [place] [address] Referring Urology 05/11/23 Agusto Olmstead [address] [place] [address] Referring 01/04/24 Clean Room Assembler Relationship Specialty Start Date End Date Agusto Olmstead [address] [place] [address] PCP - General 05/17/23 Lisa Porras MD [address] [place] [address] Referring Urology 05/11/23 Agusto Olmstead [address] [place] [address] Referring 01/04/24 Clean Room Assembler Relationship Specialty Start Date End Date Kofi Gotti MD [address] [place] [id number] PCP - General Family Medicine 10/09/23 Clean Room Assembler Relationship Specialty Start Date End Date Kofi Gotti MD [address] [place] [address] PCP - General Family Medicine 10/09/23 Clean Room Assembler Relationship Specialty Start Date End Date Agusto Olmstead APRN-CNP PCP - General Nurse Practitioner 11/10/22 Clean Room Assembler Relationship Specialty Start Date End Date Agusto Olmstead [address] [place] [address] PCP - General 05/17/23 Lisa Porras MD [address] [place] [address] Referring Urology 05/11/23 [address]a [address] [place] [address] Referring 01/04/24 Clean Room Assembler Relationship Specialty Start Date End Date Agusto Olmstead APRN-CNP PCP - General Nurse Practitioner 11/10/22 Goals [...] BE BASED ON THE PRIMARY CLINICAL RECORDS. [employer] provides no warranty or guarantee of the accuracy or completeness of information in this document.
[2024-08-08 12:49] LABS: Estimated Average Glucose 243 mg/dL; Glycohemoglobin A1C 10.1 % (4.5-6.2)
[2024-08-08 12:54] LABS: Alanine Aminotransferase 12 U/L (14-59); Albumin Globulin Ratio 0.5; Albumin Level 2.6 g/dL (3.4-5.0); Alkaline Phosphatase 96 U/L (46-116); Anion Gap 12.5; Aspartate Amino Transferase 10 U/L (15-37); Bilirubin Total 0.2 mg/dL (0.2-1.0); Calcium 9.1 mg/dL (8.5-10.1); Carbon Dioxide 22.5 mmol/L (21.0-32.0); Chloride 110 mmol/L (98-107); Chol HDL Ratio 6.7; Cholesterol 256 mg/dL (<=200); Estimated GFR (African America 21 (>=60 mL/min/1.73m^2); Estimated GFR (Non-African Ame 17 (>=60 mL/min/1.73m^2); Globulin 5.5 g/dL; Glucose 280 mg/dL (74-106); HDL Cholesterol 38 mg/dL (40-60); Sodium 139 mmol/L (136-145); Total Protein 8.1 g/dL (6.4-8.2); Triglycerides 333 mg/dL (<=150); VLDL CHOLESTEROL 66.6 mg/dL
== END 2024-08-08 11:53 | disposition home or self-care (01) ==
LOC: LAB 11:54
PROVIDERS: PCP Nurse Practitioner; Visit Provider Nurse Practitioner
DX: E11.65 Type 2 diabetes mellitus with hyperglycemia (principal); Z79.4 Long term (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; E78.2 Mixed hyperlipidemia
CPT/HCPCS: 36415; 80053; 80061; 83036

== ENCOUNTER 2024-08-10 11:42 | Inpatient (IN) | payer MEDICARE, SELFPAY ==
[2024-08-10] VITALS (89 sets, daily range): BP systolic 121–234; BP diastolic 61–121; PULSE 66–80; TEMP 36.4–36.8; O2SAT 92–100; BMI 23.4; BMI 24.8
--- OUTSIDE RECORDS SUMMARY | 2024-08-10 11:51 | XMS_ITS | CCD ---
Author Organization [facility] Care Team Providers Care Catering Assistant Name Role Phone Pcp, No Primary Care Provider Unavailabl e AGUSTO OLMSTEAD Primary Care Physician Eli Sprague Unavailable AICHMUNDO, PRICE CHANGER AGUSTO Attending Unavailable AICHHOLZ, PRICE CHANGER AGUSTO Consulting Unavailable AICHHOLZ, PRICE CHANGER AGUSTO Admitting Unavailable AICHHOLZ, PRICE CHANGER AGUSTO Primary Care Unavailable RAMON HUNTLEY Attending Unavailable RAMON HUNTLEY Admitting Unavailable REQUEST, DR DANNIE LISTED Primary Care Unavaila georgi DELVALLE, DR THANH García Consulting Unavailable HIGHLRAMON ROSALES Consulting Unavailable AICHHOLZ, PRICE CHANGER AGUSTO Primary Care Unavailable RAMON HUNTLEY Admitting Unavailable RAMON HUNTLEY Attending Unavailable AICHHOLZ, PRICE CHANGER AGUSTO Primary Care Unavailable LUKASWARIN, AMADO H Consulting Unavailable FAWWAD, AMADO H Admitting Unavailable FAWWAD, AMADO H Attending Unavailable AICHHOLZ, PRICE CHANGER AGUSTO Consulting Unavailable AICHHOLZ, PRICE CHANGER AGUSTO Admitting Unavailable AICHHOLZ, PRICE CHANGER AGUSTO Attending Unavailable AICHHOLZ, PRICE CHANGER AGUSTO Primary Care Unavailable RAMON HUNTLEY Attending Unavailable AICHHOLZ, PRICE CHANGER AGUSTO Primary Care Unavailable RAMON HUNTLEY Admitting Unavailable BHARAT, DR NUBIA Carlos Consulting Unavailable RAMON HUNTLEY Consulting Unavailable AICHHOLZ, PRICE CHANGER AGUSTO Primary Care Unavailable BHARAT, DR NUBIA Carlos Consulting Unavailable CAMMIE SEGRUA Admitting Unavailable CAMMIE SEGURA Attending Unavailable COLTONCAMMIE Consulting Unavailable AICHHOLZ, PRICE CHANGER AGUSTO Primary Care Unavailable AICHHOLZ, PRICE CHANGER AGUSTO Attending Unavailable AICHHOLZ, PRICE CHANGER AGUSTO Admitting Unavailable BHARAT, DR NUBIA Carlos Consulting Unavailable AICHHOLZ, PRICE CHANGER AGUSTO Consulting Unavailable AICHHOLZ, PRICE CHANGER AGUSTO Primary Care Unavailable COLTON, CAMMIE Admitting Unavailable COLTON, CAMMIE Attending Unavailable COLTON, CAMMIE Consulting Unavailable AICHHOLZ, PRICE CHANGER AGUSTO Primary Care Unavailable AICHHOLZ, PRICE CHANGER AGUSTO Attending Unavailable AICHHOLZ, PRICE CHANGER AGUSTO Consulting Unavailable AICHHOLZ, PRICE CHANGER AGUSTO Admitting Unavailable AICHHOLZ, PRICE CHANGER AGUSTO Primary Care Unavailable WEST, DR NUBIA Carlos Consulting Unavailable COLTON, CAMMIE Admitting Unavailable COLTON, CAMMIE Attending Unavailable COLTON, CAMMIE Consulting Unavailable AICHHOLZ, PRICE CHANGER AGUSTO Primary Care Unavailable ZIEBER, DR THANH García Consulting Unavailable HIGHLANDER, PETER D Attending Unavailable HIGHLANDER, PETER D Admitting Unavailable HIGHLANDER, PETER D Consulting Unavailable AICHHOLZ, PRICE CHANGER AGUSTO Primary Care Unavailable FOSTER ., DR PAGE Admitting Unavailable FOSTER ., DR PAGE Attending Unavailable FOSTER ., DR PAGE Consulting Unavailable ZIEBER, DR THANH García Consulting Unavailable HIGHLANDER, PETER D Admitting Unavailable AICHHOLZ, PRICE CHANGER AGUSTO Primary Care Unavailable ZIEBER, DR THANH García Consulting Unavailable HIGHLANDER, PETER D Attending Unavailable HIGHLANDER, PETER D Consulting Unavailable AICHHOLZ, PRICE CHANGER AGUSTO Primary Care Unavailable AICHHOLZ, PRICE CHANGER AGUSTO Attending Unavailable AICHHOLZ, PRICE CHANGER AGUSTO Consulting Unavailable AICHHOLZ, PRICE CHANGER AGUSTO Admitting Unavailable ZIEBER, DR THANH García Consulting Unavailable AICHHOLZ, PRICE CHANGER AGUSTO Primary Care Unavailable ZIEBER, DR THANH García Consulting Unavailable HIGHLANDER, PETER D Attending Unavailable HIGHLANDER, PETER D Admitting Unavailable HIGHLANDER, RAMON D Consulting Unavailable AICHHOLZ, PRICE CHANGER AGUSTO Primary Care Unavailable ZIEBER, DR THANH García Consulting Unavailable COLTON, CAMMIE Admitting Unavailable COLTON, CAMMIE Attending Unavailable COLTON, CAMMIE Consulting Unavailable RAQUEL DERAS Admitting Unavailable WANDY .RAQUEL Attending Unavailable KASIE CANDELARIO Consulting Unavailable REQUEST, DR PANDEY LISTED Primary Care Unavaila georgi SABA .RAQUEL Consulting Unavailable LYLE MATIAS Consulting Unavailable AICHHOLZ, PRICE CHANGER AGUSTO Primary Care Unavailable HAY ., DR CARMONA Admitting Unavailable HAY ., DR CARMONA Attending Unavailable HAY ., DR CARMONA Consulting Unavailable TONY LUO Consulting Unavailable NUBIA BATEMAN Consulting Unavailable AICHHOLZ, PRICE CHANGER AGUSTO Primary Care Unavailable HIGHLANDER, PETER D Admitting Unavailable HIGHLANDER, PETER D Attending Unavailable HIGHLANDER, RAMON Tillman Admitting Unavailable AICHHOLZ, PRICE CHANGER AGUSTO Primary Care Unavailable HIGHLANDER, RAMON Tillman Attending Unavailable HIGHLANDER, RAMON D Admitting Unavailable AICHHOLZ, PRICE CHANGER AGUSTO Primary Care Unavailable ZIEBER, DR THANH García Consulting Unavailable HIGHLANDER, RAMON Tillman Attending Unavailable HIGHLANDER, RAMON Tillman Consulting Unavailable HIGHLANDER, PETER D Admitting Unavailable AICHHOLZ, PRICE CHANGER AGUSTO Primary Care Unavailable HIGHLANDER, RAMON Tillman Attending Unavailable HIGHLANDER, RAMON Tillman Attending Unavailable HIGHLANDER, PETER D Admitting Unavailable REQUEST, NONE LISTED Primary Care Unavaila ble HIGHLANDER, RAMON D Admitting Unavailable AICHHOLZ, PRICE CHANGER AGUSTO Primary Care Unavailable HIGHLANDER, RAMON Tillman Attending Unavailable HIGHLANDER, RAMON D Admitting Unavailable AICHHOLZ, PRICE CHANGER AGUSTO Primary Care Unavailable HIGHLANDER, RAMON D Attending [...] e HIGHLANDER, PETER D Procedure Practitioner Unava wilsonable TONY LUO Consulting Unavailable HIGHLANDER, RAMON Tillman Consulting Unavailable BRANDO, KWADWO Consulting Unavailable NUBIA BATEMAN Consulting Unavailable SAMAN, GURU Consulting Unavailable FRED, LANDON Consulting Unavailable ROSELIA ., LISA JIMENEZ Consulting Unavailable GEMBUS, CAMDEN Consulting Unavailable SMALLWOOD, REJI FLORES Consulting Unavailable AICHHOLZ, PRICE CHANGER AGUSTO Primary Care Unavailable WEST, DR NUBIA Carlos Consulting Unavailable CAMMIE SEGURA Admitting Unavailable CAMMIE SEGURA Attending Unavailable CAMMIE SEGURA Consulting Unavailable HIGHLANDER, PETER D Admitting Unavailable AICHHOLZ, PRICE CHANGER AGUSTO Primary Care Unavailable ADELIA, DR THANH García Consulting Unavailable HIGHLANDER, RAMON Tillman Attending Unavailable HIGHLANDER, RAMON Tillman Consulting Unavailable Fitayden, Brigette Unavailable MapSara brambila Unavailable Lue MD, Lisa M Unavailable Aysha Agusto Primary Care Provider Agusto Lamb Primary Care Provider Lisa Porras MD Unavailable TorHermilaSumi Primary Care Unavailable Agusto Olmstead Attending Unavailable Agusto Olmstead Admitting Unavailable Lue, Lisa MIrina Referring Unavailable Lue, Lisa M. Admitting Unavailable Lue, Lisa MIrina Attending Unavailable CATALINAPROMISE Attending Unavailab le CATALINA, PROMISE ONEILLNICHASE Rodriguez Admitting Unavailab le CATALINA, PROMISE Rodriguez Attending Unavailab le CATALINA, PROMISE HEIDY Jennifer Admitting Unavailab le CATALINA, PROMISE HEIDY E Attending Unavailab le CATALINA, PROMISE HEIDY Jennifer Admitting Unavailab le CATALINA, PROMISE Rodriguez Attending Unavailab brayden CATALINA, PROMISE Rodriguez Attending Unavailab brayden LueLisa Attending Unavailable LueLisa MIrina Attending Unavailable LueLisa MIrina Attending Unavailable PROMISE ARNOLD Attending Unavailab le RICHAGUSTO CASILLAS Attending Unavailable PROMISE ARNOLD Attending Unavailab brayden SharifeLisa Referring Unavailable Lue, Lisa MIrina Attending Unavailable PROMISE ARNOLD Attending Unavailab brayden LARIOSHAGUSTO CASILLAS Attending Unavailable Maria Luisa Olmsteada Primary Care Provider Aysha Agusto Unavailable TAURUS BALLARD Attending Unavailable MADINAALYTAURUS Attending Unavailable TAURUS BALLARD Attending Unavailable TAURUS BALLARD Admitting Unavailable Aichholkimberly Agusto Primary Care Provider Unavailabl e Aysha Agusto Unavailable SWETA Albarado Referring Unavailable AGUSTO OLMSTEAD Primary Care Unavailable Kofi Gotti MD Primary Care Provider AGUSTO OLMSTEAD Attending Unavailable RICHAGUSTO CASILLAS Attending Unavailable AICHHOLZ, AGUSTO Attending Unavailable AICHHOLZ, AGUSTO Attending Unavailable AICHHOLZ, AGUSTO Attending Unavailable AICHHOLZ, AGUSTO Attending Unavailable Aichholz ELIESER, Agusto J Primary Care Provider TAURUS BALLARD Referring Unavailable JUANITO BARNARD Attending Unavailable SLOPNICK, CARMENZA Attending Unavailable SLOPNICK, CARMENZA Attending Unavailable VERSWETA ENCIANS Attending Unavailable AICHHOLZ, AGUSTO J Referring Unavailable AICHHOLZ, AGUSTO J Primary Care Unavailable VERSWETA ENCINAS Attending Unavailable AICHHOLZ, AGUSTO J Referring Unavailable AICHHOLZ, AGUSTO J Primary Care Unavailable ZACKERY PEDRO Admitting Unavailable ZACKERY PEDRO Attending Unavailable AICHHOLZ, AGUSTO J Referring Unavailable AICHHOLZ, AGUSTO J Primary Care Unavailable ZACKERY PEDRO E Attending Unavailable ZACKERY PEDRO E Referring Unavailable AICHHOLZ, AGUSTO J Primary Care Unavailable JYOTHI SHELTON Attending Unavailable AICHHOLZ, AGUSTO J Primary Care Unavailable SWETA LI Attending Unavailable AICHHOLZ, AGUSTO J Referring Unavailable AICHHOLZ, AGUSTO J Primary Care Unavailable SWETA LI Referring Unavailable AICHHOLZ, AGUSTO J Primary Care Unavailable RUTH ZACKERY Jennifer Admitting Unavailable ZACKERY PEDRO Attending Unavailable AICHHOLZ, AGUSTO J Referring Unavailable AICHHOLZ, AGUSTO J Primary Care Unavailable ZACKERY PEDRO Attending Unavailable ZACKERY PEDRO E Referring Unavailable AICHHOLZ, AGUSTO J Primary Care Unavailable ZACKERY PEDRO Admitting Unavailable ZACKERY PEDRO Attending Unavailable ZACKERY PEDRO Referring Unavailable AICHHOLZ, AGUSTO J Primary Care Unavailable ZACKERY PEDRO Attending Unavailable ZACKERY PEDRO Referring Unavailable AICHHOLZ, AGUSTO J Primary Care Unavailable VERSWETA ENCINAS Attending Unavailable AICHHOLZ, AGUSTO J Referring Unavailable AICHHOLZ, AGUSTO J Primary Care Unavailable SWETA LI Attending Unavailable AICHHOLZ, AGUSTO J Referring Unavailable AICHHOLZ, AGUSTO J Primary Care Unavailable KATEY DIAMOND Attending Unavailable AICHHOLZ, AGUSTO J Primary Care Unavailable Aichholz SORTER/ASSAY TECH, Agusto Unavailable Shen TAVERAS, Kofi Primary Care Provider [phone] Allergies Allergy Classification Reported Allergen(s) Allergy Type Date of Onset Reaction(s) Facility Latex (2 sources) Latex Substance Allergy 0 Rash [facility] (20 sources) Latex; Translations: [Latex] Allergy to substance 0 Eruption of skin (disorder), Rash [facility] Medications Current Medications Medication Drug Class(es) [...] mouth three times daily as needed HYDROcodone-acetaminophen ([place]) 7.5-32 5 MG tablet Take 1 tablet [...] by mouth Daily 30 tablet 2 06/11/2024 Active Start: 09-08-2022 take 1 tablet by [...] Puffs as in structed twice daily. calcitriol 0.31582 mg oral capsule (4 sources) Vitamin D3 Analog Start: 06-05-20 take 1 capsule by mouth three times weekly calcitriol (Rocaltrol) 0.25 MCG capsule Take 0.25 mcg by mouth 3 (three) times a week 06/05/2024 Active cephalexin 500 mg oral capsule (7 sources) Cephalosporin Antibacterial Start: 05-15-20 23 take 1 capsule by mouth every twelve hours cetirizine hydrochloride 10 mg oral tablet (9 sources) Histamine-1 Receptor Antagonist Start: 06-24-20 24 take 1 tablet by mouth once daily cetirizine (ZyrTEC) 10 MG tablet Indications: Chronic cough Take 1 tablet (10 mg) by mouth Daily 30 tablet 2 06/24/2024 Active Start: 04-18-2024 End: 05-18-2024 take 1 tablet by mouth once daily cetirizine (ZyrTEC) 10 MG tablet Indications: Chronic cough Take 1 tablet (10 mg) by mouth Daily 30 tablet 2 04/18/2024 Active ciprofloxacin 250 mg oral tablet (1 source) Quinolone Antimicrobial Start: 01-21-2021 End: 01-27-2021 take 1 tablet by mouth once daily ciprofloxacin HCl (CIPRO) 250 mg tablet Take 1 tablet by mouth once daily for 3 days. 3 tablet 0 01/21/2021 01/27/2021 Active Comment on above: Take 1 tablet by rain once daily for 3 days. 1 ml denosumab 60 mg/ml prefilled syringe (20 sources) RANK Ligand Inhibitor denosumab (Prolia) 60 MG/ML solution prefilled syringe Inject 60 mg under the skin every 6 (six) months Active inject 1 mL by subcutaneous inje ction once denosumab (PROLIA) 60 mg/mL syringe injection Inject 1 mL (60 mg total) under the skin once. Active Dexcom G6 Sensor - (6 sources) [...] on above: Take 1 capsule by mo [facility] two times a day. DULoxetine 20 mg delayed release oral capsule (3 sources) Serotonin and Norepinephrine Reuptake Inhibitor Start: 06-11-2024 End: 07-11-2024 take 1 capsule by mouth once daily DULoxetine (Cymbalta) [address] capsule Indications: Type 2 diabetes mellitus with diabetic neuropathy, unspecified whether [facility] insulin use ([facility]) Take 1 capsule (20 mg) by mouth Daily Do not crush or chew. 30 capsule 1 06/11/2024 Active estradiol 0.1 mg/ml vaginal cream (7 sources) Estrogen Start: 05-03-2023 Estrace 0.1 mg/g Cream See Instructions, 42.5 gm, Refill(s) 3, apply pea size amount to urethra/inner vagina 3x/week x 1 month, then 2x/week for maintainence, [id number], 153, cm, 05/03/23 9:52:00 EDT, Height/Length [...] propionate 0.05 mg/actuat metered dose nasal spray (9 sources) Corticosteroid Start: take 2 spray(s) nasal route once daily fluticasone (Flonase) 50 MCG/ACT nasal spray Indications: Chronic cough Administer 2 sprays into each nostril Daily Shake gently. Before first use, prime pump. After use, clean tip and replace cap. 16 g 2 06/24/2024 Active Start: 04-18-2024 End: 05-18-2024 take 2 spray(s) nasal route once daily fluticasone (Flonase) 50 MCG/ACT nasal spray Indications: Chronic cough Administer 2 sprays into each nostril Daily Shake gently. Before first use, prime pump. After use, clean tip and replace cap. 16 g 2 04/18/2024 Active folic acid 1 mg oral tablet (12 sources) Start: 09-08-2022 folic acid 1 m g Tab Refills(s) 0 Start Date: 09/08/22 Status: [...] subcutaneous injection three times daily insulin lispro (HumaLOG) 100 UNIT/ML injection INJECT [...] oral tablet (20 sources) beta-Adrenergic Rainer Start: 06-24-2024 take 1 tablet by mouth once daily metoprolol succinate XL (Toprol-XL) 50 MG 24 hr tablet Indications: Essential (primary) hypertension (CMS/HCC) Take 1 tablet (50 mg) by mouth Daily 30 tablet 2 06/24/2024 Active Start: 11-08-2023 End: 01-20-2024 take 1 tablet by mouth once daily metoprolol succinate XL (Toprol-XL) 50 MG 24 hr tablet Indications: Essential (primary) hypertension (CMS/HCC) Take 1 tablet (50 mg) by mouth Daily 30 tablet 2 01/17/2024 Active Start: 12-20-2022 take 1 tablet by [...] day(s), # 30 tab(s), Refills(s) 6, Pharmacy: [id number], 153, cm, 09/21/22 8:48:00 EST, Height/Length Dosing, 52.5, kg, 09/21/22 8:48:00 EST, Weight Dosing Start Date: 09/21/22 Stop Date: 04/19/23 Status: Ordered ondansetron 4 mg disintegrating oral tablet (5 sources) Serotonin-3 Receptor Antagonist Start: 06-05-2024 take 1 tablet by mouth every eight hours as needed for vomiting and nausea ondansetron ODT (Zofran-ODT) 4 MG disintegrating tablet Take 4 mg by mouth every 8 (eight) hours if needed for vomiting or nausea 06/05/2024 Active Start: 05-08-2024 End: 05-15-2024 take 1 tablet by mouth every eight hours for nausea ondansetron ODT (Zofran-ODT) 4 MG disintegrating tablet Indications: Nausea and vomiting, unspecified vomiting type Take 1 tablet (4 mg) by mouth every 8 (eight) hours if needed for nausea or vomiting for up to 7 days 21 tablet 05/08/2024 05/15/2024 Active 24 hr oxybutynin chloride 5 mg extended release oral tablet (1 source) Cholinergic Muscarinic Antagonist Start: 09-13-2022 End: 04-11-2023 take 1 tablet by mouth once daily oxybutynin 5 mg ER Tab 5 mg = 1 tab(s), Oral, Daily, X 30 day(s), # 30 tab(s), Refills(s) 6, Pharmacy: [id number], 153, cm, 09/13/22 13:38:00 EST, Height/Length Dosing, 52.5, kg, 09/13/22 13:38:00 EST, Weight Dosing Start Date: 09/13/22 Stop Date: 04/11/23 Status: Ordered potassium chloride 10 meq extended release oral capsule (12 sources) Start: 09-08-2022 potassium chlo ride 10 mEq Cap-ER Refills(s) 0 Start Date: 09/08/22 Status: Ordered pregabalin 150 mg oral capsule (20 sources) Start: 07-26-2024 pregabalin (LY PRIYANK) 150 mg capsule Indications: [...] times daily. Take 1 capsule by mo [facility] two times a day for 30 days. 1000 ml sodium chloride 9 mg/ml injection (1 source) Start: End: 0.9 % sodium chloride (NACL 0.9%) infusion Indications: Other hydronephrosis Administer at rate defined per CT contrast administration specifications. To be provided with radiology test. 150 mL 0 01/12/2024 01/12/2024 Active trospium chloride 20 mg oral tablet (15 sources) Cholinergic Muscarinic Antagonist Start: take 1 tablet by mouth in the morning trospium (Sanctura) 20 MG tablet Take 20 mg by mouth in the morning. 03/22/2023 Active vitamin b12 1 mg oral tablet (20 sources) Vitamin B12 Start: [...] 1 tablet by rain th once daily cyanocobalamin (Vitamin B-12) 1000 MCG tablet Take 1,000 mcg by mouth Daily 10/10/2023 Active Comment on above: Take 1,000 mcg by mo ut once daily. Completed/Discontinued Medications Medication Drug Class(es) Dates Sig (Normalized) Sig (Original) Continuous Blood Gluc [employer] (Dexcom G6 executive kitchen manager) device (3 sources) Start: 12-30-2022 End: 04-16-2024 Continuous Blood Gluc [employer] (Dexcom G6 executive kitchen manager) device Inject 1 Device under the skin in the morning. 12/30/2022 04/16/2024 Discontinued (Therapy completed) Start: 12-30-2022 Continuous Blo od Gluc Professor [employer] (Dexcom G6 executive kitchen manager) device Inject 1 Device under the skin in the morning. 12/30/2022 Active Continuous Blood Gluc Sensor (Dexcom G6 Sensor) misc (3 sources) Start: 01-25-2023 End: 04-16-2024 Continuous Blood Gluc Sensor (Dexcom G6 Sensor) misc 1 Device 1 (one) time each day 01/25/2023 04/16/2024 Discontinued (Therapy completed) Start: 01-25-2023 Continuous Blo od Gluc Sensor (Dexcom G6 Sensor) misc 1 Device 1 (one) time each day 01/25/2023 Active Continuous Blood Gluc Transm it (Dexcom G6 transmitter) misc (3 sources) Start: 12-30-2022 End: 04-16-2024 Continuous Blood Gluc Transm it (Dexcom G6 transmitter) misc Inject 1 each under the skin 1 (one) time each day 12/30/2022 04/16/2024 Discontinued (Therapy completed) Start: 12-30-2022 Continuous Blo od Gluc Transmit (Dexcom G6 transmitter) misc Inject 1 each under the skin 1 (one) time each day 12/30/2022 Active phenazopyridine hydrochloride 200 mg delayed release oral tablet (3 sources) Start: 01-04-2024 End: 04-16-2024 take 1 tablet by mouth three times daily phenazopyridine (Pyridium) 200 MG tablet TAKE 1 TABLET BY MOUTH THREE TIMES DAILY FOR 2 DAYS 01/04/2024 04/16/2024 Discontinued (Therapy completed) Problems Active Problems Problem Classification Problem Date Documented Date Episodic/Chronic Administrative/social admission (2 sources) Dietary counseling and surveillance Episodic Asthma (20 sources) Unspecified asthma, uncomplicated; Translations: [Mild intermittent asthma] Onset: 11-13-2008 Resolved: 06-24-2024 06-06-2023 Chronic Blindness and vision defects (11 sources) Visual impairment; Translations: [Unspecified visual loss] Onset: 10-11-2023 10-11-2023 Chronic Cancer of cervix (15 sources) Malignant tumor of cervix; Translations: [Malignant neoplasm of cervix uteri, unspecified] Onset: 10-11-2023 04-16-2024 Chronic Cardiac dysrhythmias (11 sources) Supraventricular tachycardia; Translations: [Supraventricular tachycardia] Onset: 06-15-2022 10-11-2023 Chronic Chronic kidney disease (20 sources) Chronic kidney disease stage 3; Translations: [Chronic kidney disease, stage 3 unspecified] Onset: 11-15-2021 Resolved: 06-24-2024 09-08-2022 Chronic Chronic kidney disease (4 sources) [...] Chronic Coronary atherosclerosis and other heart disease (11 sources) Old myocardial infarction; Translations: [Old myocardial infarction] Onset: 06-15-2022 10-11-2023 Chronic Deficiency and other anemia (1 source) Anemia, unspecified Episodic Diabetes mellitus with complications (20 sources) Disorder due to type 2 diabetes mellitus; Translations: [Type 2 diabetes mellitus with unspecified complications] Onset: 11-03-2021 Resolved: 06-24-2024 Chronic Diabetes mellitus without complication (20 sources) Type 2 diabetes mellitus; Translations: [Type 2 diabetes mellitus without complications] Onset: 11-03-2021 09-08-2022 Chronic Diabetes mellitus without complication (1 source) Diabetes mellitus without complication; Translations: [Type 2 diabetes mellitus with diabetic chronic kidney disease] Onset: 06-08-2023 Disorders of lipid metabolism (20 sources) Hyperlipidemia; Translations: [Hyperlipidemia, unspecified] Onset: 11-12-2009 Resolved: 07-22-2024 Chronic Essential hypertension (20 sources) Essential hypertension; [...] Translations: [Incontinence] Onset: 09-13-2022 Resolved: 12-21-2023 Chronic Headache; including migraine (11 sources) Migraine; Translations: [Migraine, unspecified, not intractable, without status migrainosus] Onset: 09-06-2011 10-11-2023 Chronic Heart valve disorders (20 sources) Rheumatic mitral valve disease, unspecified; Translations: [Nonrheumatic mitral (valve) prolapse] Onset: 03-20-2008 Resolved: 06-24-2024 06-06-2023 Chronic Hypertension with complications and secondary hypertension (6 sources) Hypertensive heart disease with heart failure; Translations: [Hypertensive renal disease] Onset: 08-09-2022 06-03-2024 Chronic Infective arthritis and osteomyelitis (except that caused by tuberculosis or sexually transmitted disease) (12 sources) Other acute osteomyelitis, left ankle and foot; Translations: [Acute osteomyelitis of ankle and/or foot] Onset: 06-15-2022 10-11-2023 Chronic Nonspecific chest pain (4 sources) Chest pain, unspecified; Translations: [CHEST PAIN UNSPECIFIED] Onset: 12-15-2022 Episodic Nutritional deficiencies (20 sources) Deficiency of macronutrients; Translations: [Unspecified severe protein-calorie malnutrition] Onset: 11-12-2009 01-21-2021 Chronic Nutritional deficiencies (6 sources) Deficiency of other specified B group vitamins; Translations: [Cobalamin deficiency] Onset: 06-11-2024 Episodic Open wounds of extremities (20 sources) Complete traumatic amputation of left great toe, initial encounter; Translations: [Traumatic amputation of toe(s) (complete) (partial), without mention of complication] Onset: 06-15-2022 Resolved: 06-24-2024 10-11-2023 Chronic Osteoporosis (12 sources) Age-related osteoporosis without current pathological fracture; Translations: [Osteoporosis] Onset: 12-31-2022 10-11-2023 Chronic Other aftercare (17 sources) Long-term current use of insulin; Translations: [long-term (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] Episodic Other circulatory [...] [Other hydronephrosis] 01-12-2024 Episodic Other endocrine disorders (20 sources) Hyperparathyroidism; Translations: [Hyperparathyroidism, unspecified] Onset: 03-13-2024 06-03-2024 Chronic Other endocrine disorders (1 source) Hyperparathyroidism, unspecified; Translations: [Hyperparathyroidism, unspecified] 06-05-2024 Chronic Other liver diseases (11 sources) Steatosis of liver; Translations: [Fatty (change [...] Onset: 03-15-2024 Chronic Other nervous system disorders (13 sources) Complex regional pain syndrome; Translations: [Complex regional pain syndrome I, unspecified] Onset: 10-11-2023 10-11-2023 Chronic Other non-traumatic joint disorders (11 sources) Charcot's joint of foot; Translations: [Charcot's joint, left ankle and foot] Onset: 10-11-2023 10-11-2023 Chronic Other nutritional; endocrine; and metabolic disorders (1 source) Body mass index (BMI) 25.0-25.9, adult Episodic Other skin disorders (7 sources) Lesion of skin of face; Translations: [Disorder of the skin and subcutaneous tissue, unspecified] Onset: 06-11-2024 06-11-2024 Episodic Other upper respiratory infections (11 sources) Chronic sinusitis; Translations: [Chronic sinusitis, unspecified] Onset: 11-30-2010 Resolved: 07-22-2024 10-11-2023 Chronic Peripheral and visceral atherosclerosis (11 sources) Atherosclerosis of aorta; Translations: [Atherosclerosis of [...] adult Episodic Rheumatoid arthritis and related disease (16 sources) Rheumatoid arthritis, unspecified; Translations: [Rheumatoid arthritis] Onset: 06-15-2022 03-13-2024 Chronic Unclassified (12 sources) Finding of sensation of bladder 01-24-2023 Unclassified (1 source) CHRN KIDNEY DISEASE STG [...] source) Extremity Pain Onset: 12-13-2023 Viral infection (11 sources) Herpetic vulvovaginitis; 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] Onset: [...] Translations: [Fever, unspecified] Onset: 08-31-2023 Resolved: 09-04-2023 4 Episodic Fluid and electrolyte disorders (20 sources) [...] unspecified] Onset: 01-17-2021 Resolved: 01-17-2024 01-21-2021 Episodic Malaise and fatigue (20 sources) Asthenia; Translations: [Weakness] Onset: 01-17-2021 01-18-2021 Episodic Mood disorders (11 sources) Mood disorders Onset: 10-11-2023 10-11-2023 Nausea and vomiting (6 sources) Nausea and vomiting; Translations: [Nausea with vomiting, unspecified] Onset: 05-08-2024 05-08-2024 Episodic Neoplasms of unspecified nature or uncertain behavior (20 sources) Neoplasm of kidney; 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] Onset: 06-22-2023 06-22-2023 Episodic Open wounds of extremities (1 source) Unspecified open wound of right great toe without damage to nail, initial encounter; Translations: [UNS OP WND RT GRT TOE NO DMG NL INT] Onset: 05-16-2022 Episodic Other aftercare (4 sources) 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; Translations: [CORRECTION CURRENT USE OF INSULIN] Onset: 08-09-2022 Episodic Other aftercare (1 source) Other chcf (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; Translations: [OTH CORRECTION CURRENT DRUG THERAPY] Onset: 08-09-2022 Episodic Other aftercare (3 sources) Admission statuses; Translations: [long-term (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 of opiate analgesic] Onset: 03-15-2022 03-15-2022 Episodic Other aftercare (2 sources) long-term (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 of opiate analgesic; Translations: [long-term (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 of opiate analgesic] Onset: 03-15-2022 Episodic Other aftercare (4 sources) Patient encounter status; Translations: [terminal block assembler (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 of opiate analgesic] Onset: 03-15-2022 03-15-2022 Episodic Other bone disease and musculoskeletal deformities (3 sources) Amputee; Translations: [Acquired absence of limb, unspecified] Onset: 06-11-2024 Resolved: 06-24-2024 06-11-2024 Chronic Other circulatory disease (20 sources) History of [...] Hypoxemia; Translations: [HYPOXEMIA] Onset: 07-25-2022 Episodic Other lower respiratory disease (13 sources) Chronic cough; Translations: [Chronic cough] Onset: 04-16-2024 04-16-2024 Episodic Other nervous system disorders (17 sources) [...] conditions (not mental disorders or infectious disease) (20 sources) Encounter for screening mammogram for malignant neoplasm of breast; Translations: [Other specified abnormal findings of blood chemistry] Onset: 07-25-2022 Episodic Other upper respiratory disease (11 sources) Deviated nasal septum; Translations: [Deviated nasal septum] Onset: 11-30-2010 10-11-2023 Episodic Residual codes; unclassified (1 source) Acquired absence of both cervix and uterus; Translations: [ACQUIRED ABSENCE BOTH CERVIX AND UTERUS] Onset: 08-09-2022 Episodic Residual codes; unclassified (1 source) Acquired absence of other specified parts of digestive tract; Translations: [ACQ ABSENCE OTH PART DIGESTV TRACT] Onset: 07-25-2022 Episodic Residual codes; unclassified (11 sources) Postmenopausal state; Translations: [Asymptomatic menopausal state] [...] Test Name Value Interpretation Reference Range Facility MLR HEMOGLOBIN A1Con 024 Glucose [Mass/Vol] 243 mg/dL [facility] HbA1c (Bld) [Mass fraction] 10.1 % High 4.5 - 6.2 % [facility] Comment on above: ADA RECOMMENDED LIMI T 4.0 - 6.0 ADA THERAPEUTIC TARGET < 7.0 ACTION SUGGESTED > 7.0 Interpretation and review of laboratory results Abnormal [facility] 36on 07-05-2024 36 Received C9 approval . Pt called and scheduled. [facility] notified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 LVM to call office back to schedule. Please advise pt to bring disc with imaging on it to her appt or advise bond writer where imaging had been completed. Thank You Normal [facility] Telephoneon 05-03-2024 Telephone [id number] Fernando Wheeler 1960 F Date Provider Department Center 05/03/2024 [id number], HANNA [facility] SURG Second Fl No family history on file Normal [facility] BLOOD CULTURE 1on 05-01-2024 BLOOD CULTURE 1 Blood Culture 1 NG5D NO GROWTH AT 5 DAYS.^NO GROWTH AT 5 DAYS. [facility] BLOOD CULTURE 2on 05-01-2024 BLOOD CULTURE 2 Blood Culture 2 NG5D NO GROWTH AT 5 DAYS.^NO GROWTH AT 5 DAYS. [facility] CNOVon 05-01-2024 CNOV Office Visit (UROLMN ) AISLINN WHEELER ([id number]) 1960 F Date Time Provider Department 05/01/24 10:00 AM JUANITO BARNARD During your visit today, we recorded the following information about you: Pulse Blood pressure 74/minute 173/96 Juanito Barnard MD 05/01/2024 12:12 PM Signed [facility] UROLOGY NEW [...] calculate BMI (more content not included)... Normal [facility] No Panel Informationon 05-01 [facility] URINALYSIS, REFLEX MICROSCOP ICon 05-01-2024 Bilirubin Ql (U) Negative Negative [facility] Clarity (Unsp spec) Clear Clear [facility] Color (U) Yellow Yellow [facility] Glucose Test strip (U) [Mass/Vol] 1+ Abnormal Negative [facility] Hemoglobin Ql (U) Negative Negative [facility] Interpretation and review of laboratory results Abnormal [facility] Ketones Ql (U) Negative Negative [facility] Leukocyte esterase Test strip Ql (U) Trace Abnormal Negative [facility] Nitrite Ql (U) Negative Negative [facility] pH (U) 5.5 [pH] NINF - 8.5 [facility] Protein (U) [Mass/Vol] 2+ Abnormal Negative [facility] Specific gravity (U) [Rel density] 1.010 1.005 - 1.030 [facility] Urobilinogen Ql (U) 0.2 EU/dL 0.2-1.0 EU/dL [facility] This test was develo ped and its performance characteristics determined by [facility]'s [facility] [place] (RT-PLMI). It has not been cleared or approved by the FDA. RT-PLND is regulated under CLIA as qualified to perform high-complexity testing. This test is used for clinical purposes. It should not be regarded as investigational or for research. [facility] Bilirubin Ql (U) Negative Normal Negative [facility] Comment on above: Order Comment: Speci men Type: URINE SPECIMENOrdering Facility: [facility] Address: [address] [place] [address] Performed By: #### L [id number] ####[facility] LABCLIA [id number] [place] [address] [place] Clarity (Unsp spec) Clear Normal Clear [facility] Comment on above: Order Comment: Speci men Type: URINE SPECIMENOrdering Facility: [facility] Address: [address] [place] [address] Performed By: #### L [id number] ####[facility] LABCLIA [id number] [place] [address] [place] Color (U) Yellow Normal Yellow [facility] Comment on above: Order Comment: Speci men Type: URINE SPECIMENOrdering Facility: [facility] Address: [address] [place] [address] Performed By: #### L [id number] ####[facility] LABCLIA [id number] [place] [address] [place] Glucose Test strip (U) [Mass/Vol] 1+ Abnormal Negative [facility] Comment on above: Order Comment: Speci men Type: URINE SPECIMENOrdering Facility: [facility] Address: [address] [place] [address] Performed By: #### L [id number] ####[facility] LABCLIA [id number] [place] [address] [place] Hemoglobin Ql (U) Negative Normal Negative [facility] Comment on above: Order Comment: Speci men Type: URINE SPECIMENOrdering Facility: [facility] Address: [address] [place] [address] Performed By: #### L [id number] ####[facility] LABCLIA [id number] [place] [address] [place] Ketones Ql (U) Negative Normal Negative [facility] Comment on above: Order Comment: Speci men Type: URINE SPECIMENOrdering Facility: [facility] Address: [address] [place] [address] Performed By: #### L [id number] ####[facility] LABCLIA [id number] [place] [address] [place] Leukocyte esterase Test strip Ql (U) Trace Abnormal Negative [facility] Comment on above: Order Comment: Speci men Type: URINE SPECIMENOrdering Facility: [facility] Address: [address] [place] [address] Performed By: #### L [id number] ####[facility] LABCLIA [id number] [place] [address] [place] Nitrite Ql (U) Negative Normal Negative [facility] Comment on above: Order Comment: Speci men Type: URINE SPECIMENOrdering Facility: [facility] Address: [address] [place] [address] Performed By: #### L [id number] ####[facility] LABCLIA [id number] [place] [address] [place] pH (U) 5.5 [pH] Normal <8.5 [facility] Comment on above: Order Comment: Speci men Type: URINE SPECIMENOrdering Facility: [facility] Address: [address] [place] [address] Performed By: #### L [id number] ####[facility] LABIA [id number] [place] [address] [place] Protein (U) [Mass/Vol] 2+ Abnormal Negative [facility] Comment on above: Order Comment: Speci men Type: URINE SPECIMENOrdering Facility: [facility] Address: [address] [place] [address] Performed By: #### L [id number] ####[facility] LABIA [id number] [place] [address] [place] Specific gravity (U) [Rel density] 1.010 Normal 1.005-1.030 [facility] Comment on above: Order Comment: Speci men Type: URINE SPECIMENOrdering Facility: [facility] Address: [address] [place] [address] Performed By: #### L [id number] ####[facility] LABIA [id number] [place] [address] [place] Urobilinogen Ql (U) 0.2 EU/dL Normal 0.2-1.0 EU/dL [facility] Comment on above: Order Comment: Speci men Type: URINE SPECIMENOrdering Facility: [facility] Address: [address] [place] [address] [place] [address] Performed By: #### L [id number] ####[facility] LABCLIA [id number] [facility] [place] [id number] [place] URINE CULTURE, ROUTINEon Bacteria identified Cx Nom (U) Urine Culture, Routine Organism: Beta hemolytic Strep group B : [facility] Bacteria identified Cx Nom (U) *ABNORMAL* [facility] Bacteria identified Cx Nom (U) Greater than 100,000 colony forming units per mL [facility] Bacteria identified Cx Nom (U) Penicillin and ampicillin are drugs of choice for [facility] Bacteria identified Cx Nom (U) treatment of beta-hemolytic streptococcal infections. [facility] Bacteria identified Cx Nom (U) Susceptibility testing of penicillins and other beta- [facility] Bacteria identified Cx Nom (U) lactam agents approved by the FDA for treatment of [facility] Bacteria identified Cx Nom (U) beta-hemolytic streptococcal infections need not be [facility] Bacteria identified Cx Nom (U) performed routinely because nonsusceptible isolates [facility] Bacteria identified Cx Nom (U) are extremely rare in any beta-hemolytic streptococcus [facility] Bacteria identified Cx Nom (U) and have not been reported for Streptococcus pyogenes [facility] Bacteria identified Cx Nom (U) (group A). (CLSI) [facility] Bacteria identified Cx Nom (U) [facility] Bacteria identified Cx Nom (U) Mixed urogenital shahla [facility] Bacteria identified Cx Nom (U) 10,000-25,000 colony forming units per mL [facility] Bacteria identified Cx Nom (U) Beta hemolytic Strep group B [facility] Bacteria identified Cx Nom (U) O:BETAGB Isolated [facility] Bacteria identified Cx Nom (U) Performed at: [facility] Bacteria identified Cx Nom (U) [address] [place], [place] [id number] [facility] Bacteria identified Cx Nom (U) System Administration Advisor: Chris Luna PhD, Phone: [phone] [facility] Drugs of abuse panel Screen (U)on 04-24-2024 Control Substance Panel, Urine SEE COMMENTS 04/28/2024 10:47 AM Abnormal [place] Comment on above: Result Comment: NOTE Test Result Flag Unit RefValue - Controlled Substance Monitoring, U List Patient's Current HYDROCODONE Medications ADDITIONAL INFORMATION Accuracy and completeness of declared medications on reports solely dependent on information submitted by client. Creatinine, U 51.0 mg/dL Specific Orion 1.010 pH 5.4 Oxidants Negative -- REFERENCE [...] Not Detected ng/mL Cutoff: 25 Tylenol 3 Jzphsjp-3-ooih- Not Detected ng/mL Cutoff: 100 glucuronide Metabolite of codeine Morphine Not Detected ng/mL Cutoff: 25 Marium Leon, MS Contin; Also a minor metabolite (10%) of codeine and can be seen in low concentrations (<2,000 ng/mL) with poppy seed ingestion. Tnvuxrmv-3-rucz- Not Detected ng/mL Cutoff: 100 glucuronide Metabolite of morphine 6-monoacetylmorphine Not Detected ng/mL Cutoff: 25 Metabolite of heroin Hydrocodone Present A ng/mL Cutoff: 25 Lortab, [place], Vicodin; Also a very minor metabolite of codeine and impurity (<1%) of oxycodone. Norhydrocodone Present A ng/mL Cutoff: 25 Metabolite of hydrocodone Dihydrocodeine Present A ng/mL Cutoff: 25 Metabolite of hydrocodone Hydromorphone Not Detected ng/mL Cutoff: 25 Dilaudid, Exalgo; Also a metabolite of hydrocodone and a minor (<5%) metabolite of morphine. Ghuicfkhnqwjo-2-rhnp- Present A ng/mL Cutoff: 100 glucuronide Metabolite of hydromorphone Oxycodone Not Detected ng/mL Cutoff: 25 Endocet, Percocet, Oxycontin Noroxycodone Not Detected ng/mL Cutoff: 25 Metabolite of oxycodone Oxymorphone Not Detected ng/mL Cutoff: 25 Numorphan, Opana; Also a metabolite of oxycodone. Jdmwomsivxt-9-refn- Not Detected ng/mL Cutoff: 100 glucuronide Metabolite [...] Naloxone Not Detected ng/mL Cutoff: 25 Narcan Dkqjmgip-0-adfw- Not Detected ng/mL Cutoff: 100 glucuronide Metabolite [...] of its metabolites (norhydrocodone and dihydrocodeine), and mhygqxrsgttqk-2-fblk-glucuronide (metabolite of hydromorphone). Suspect use of hydrocodone and/or hydromorphone within the past three days. Trace amounts of hydrocodone can also be found as an impurity in hydromorphone. ADDITIONAL INFORMATION This test was developed and its performance characteristics determined by [facility] in a manner consistent with CLIA requirements. [...] 03-29-2024 CNNURSE Nurse Visit (UROSMN) AISLINN WHEELER ([id number]) 1960 F Date Time Provider Department 03/29/24 3:00 PM [facility]ICS UROSMN During your visit today, we recorded the following information about you: Lorie Burrows RN 03/29/2024 2:18 PM Addendum [facility] URODYNAMICS LAB [...] allergy: No Females- Is patient : No Backroom Associate offered:Patient declines B/O UA: Yes, Negative for [...] Nolen MD 04/02/2024 11:52 AM Addendum [facility] CENTER FOR [...] bladder with poor compliance and BURKE at JAIL of 100ml. Bladder remodeling without VUR. Valsalva voiding with atonic detrusor. Will refer to consider bladder augmentation. Carmenza Nolen MD Voiding cystourethrogram- Voiding Cystourethrogram Patient Name - Aislinn Wheeler Date - April 02, 2024 Imaging exam - VCUG Number of images saved - 11 Patient position - Sitting Radiologic Findings: A laboratory coordinator radiograph was obtained. The bony and soft tissue structures are within normal. 147 ccs contrast were used to fill the bladder. The bladder outline is irregular/trabeculated and abnormal shaped appearing. There is no ureteral reflux. During the voiding phase there is abnormal bladder neck opening and urethra is not visualized. Bladder emptying is not visualized Read (more content not included)... Normal [facility] CNOVon 03-26-2024 CNOV Office Visit (UROLAV ) AISLINN WHEELER ([id number]) 1960 F Date Time Provider Department 03/26/24 [...] Carmenza Nolen MD 03/26/2024 11:54 AM Signed [facility] ESTABLISHED UROLOGY VISIT CENTER FOR FEMALE PELVIC [...] her bladder. 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 Normal [facility] UA DIP, URINE (POC)on 2023 BILIRUBIN UA (POCT) Negative Negative [facility] CLARITY UA (POCT) Cloudy [facility] COLOR UA (POCT) Light yellow [facility] GLUCOSE UA (POCT) Negative Negative mg/dL [facility] Hemoglobin Ql (U) Trace-intact Abnormal Negative [facility] Interpretation and review of laboratory results Abnormal [facility] KETONE UA (POCT) Negative Negative mg/dL [facility] LEUKOCYTES UA (POCT) Moderate Abnormal Negative [facility] NITRITE UA (POCT) Negative Negative [facility] PH UA (POCT) 6.0 4.5 - 8.0 [facility] Protein Ql (U) 100 mg/dL Abnormal Negative [facility] SPECIFIC GRAVITY UA (POCT) 1.020 1.005 - 1.030 [facility] UROBILINOGEN UA (POCT) 0.2 Normal E.U./dL [facility] Location:[facility], [address] , [place], [place], [address] [facility] POINT OF CARE [facility] Glucose Glucometer (BldC) [M ass/Vol]on 03-15-2024 Glucose [Mass/Vol] 164 mg/dL High 65-99 [facility] [place] 02-26-2024 CNPN Telephone (URR) AISLINN WHEELER ([id number]) 1960 F Date Time Provider Department 02/26/24 [facility] During your visit today, we recorded the following information about you: Flavio Coon, RN 02/26/2024 2:46 PM Signed Pt LVM asking for her CT scan results. Noted in pt chart was an unread message from regarding the most recent CT scan. LVM for pt and let her know about P[employer] message and provided number if pt has [...] Encounter Status:Closed by [facility] Tele[facility] (URR) AISLINN WHEELER ([id number]) 1960 F Date Time Provider Department 02/12/24 VONNIE WILDER [facility] During your visit today, we recorded [...] Encounter Status:Closed by VONNIE WILDER on 02/12/[address] [facility] [address] Kidney WO and W contrast IVOrdered By: Ccf Provider on 02-02-2024 Interpretation and review of laboratory results Abnormal [facility] Radiology Result ACTIONABLE Abnormal [facility] Comment on above: This report contains an [...] contact your provider for the next steps. [facility] CT Kidney WO and W contrast Mirna [...] be communicated with the ordering provider via Itiva staff message or phone message by Imaging [...] any questions regarding this interpretation, please call [phone]. If you are unable to reach us at the number above, please feel free to contact [facility] at [phone]. DIVISION OF RADIOLOGY * * *Final Report* * * DATE OF EXAM: Feb 01 2024 3:26PM [facility] 0560 - CT UROGRAM [...] dated 01/20/[address] scan dated 01/17/21 [facility] RESULT: Kidneys and urinary tract: Right: There [...] additional findings. DIVISION OF RADIOLOGY Provider, [facility] - 02/02/2024 * * *Final Report* * * DATE OF EXAM: Feb 01 2024 3:26PM [facility] 0560 - CT UROGRAM [...] be communicated with the ordering provider via [employer]iva staff message or phone message by Imaging [...] any questions regarding this interpretation, please call [phone]. If you are unable to reach us at the number above, please feel free to contact [facility] eRadiology at [phone]. [facility] CREATININE BLDOrdered By: James mayberry Blade on 02-01-2024 Creatinine [Mass/Vol] 1.78 mg/dL High 0.58 - 0.96 mg/dL [facility] GFR/1.73 sq M.predicted among non-blacks MDRD (S/P/Bld) [Vol rate/Area] 31 mL/min/{1.73_m2} Low - PINF [facility] Comment on above: Estimated Glomerular Filtration Rate [...] Interpretation and review of laboratory results Abnormal [facility] CREATININE BLDon 02-01-2024 Creatinine [Mass/Vol] 1.78 mg/dL High 0.58-0.96 [facility] Comment on above: Order Comment: Speci men Type: BLOOD SPECIMENOrdering Facility: [facility] Address: [address] [place] [address] Performed By: #### C RET1 ####[facility] LABCLIA [id number] [place] [address] Creatinine and Glomerular filtration rate.predicted panel (S/P/Bld) 31 mL/min/1.73m??? Low >=60 [facility] Comment on above: Order Comment: Speci men Type: BLOOD SPECIMENOrdering Facility: [facility] Address: [address] [place] [address] Result Comment: Donna mated Glomerular Filtration Rate [...] actual GFR. Performed By: #### C RET1 ####[facility] LABCLIA [id number] [place] [address] CT Kidney WO and W contrast Mirna 02-01-2024 Radiology Study observation (narrative) [facility] CT UROGRAM WO/W IVCONon 01-19 CT UROGRAM WO/W IVCON * * *Final Report* * * DATE OF EXAM: Feb 01 2024 3:26PM [facility] 0560 - CT UROGRAM [...] be communicated with the ordering provider via Itiva staff message or phone message by Imaging [...] any questions regarding this interpretation, please call [phone]. If you are unable to reach us at the number above, please feel free to contact [facility] eRadiology at [phone]. [id number] ACTIONABLE Invalid Interpretation Code [facility] CNOVon 01-12-2024 CNOV Office Visit (URFMOB ) AISLINN WHEELER ([id number]) 1960 F Date Time Provider Department 01/12/24 1:50 PM TAURUS BALLARD URFMOB During your visit today, we recorded the following information about you: Pulse Blood pressure 75/minute 142/69 Taurus Ballard MD 01/12/2024 2:43 PM Signed [facility] FOLLOW-UP PATIENT HISTORY AND [...] urogram Will refer to Dr. Tamanna Ruiz APRN.PRICE CHANGER Attending Note I have personally performed a [...] her ki (more content not included)... Normal [facility] UA DIP, URINE (POC)on 2023 BILIRUBIN UA (POCT) Negative Negative [facility] [facility] CLARITY UA (POCT) Clear [facility] COLOR UA (POCT) Yellow [facility] GLUCOSE UA (POCT) 100 mg/dL Abnormal Negative [facility] Hemoglobin Ql (U) Trace-intact Abnormal Negative [facility] Interpretation and review of laboratory results Abnormal [facility] KETONE UA (POCT) Negative Negative mg/dL [facility] LEUKOCYTES UA (POCT) Small Abnormal Negative [facility] NITRITE [facility] (POCT) Negative Negative [facility] PH UA (POCT) 5.5 4.5 - 8.0 [facility] Protein Ql (U) 100 mg/dL Abnormal Negative [facility] SPECIFIC GRAVITY UA (POCT) 1.015 1.005 - 1.030 [facility] UROBILINOGEN UA (POCT) 0.2 Normal E.U./dL [facility] Location:[facility], [address] [address] [place], [place], [address] [place] [address] POINT OF CARE [facility] ED Note-Physicianon 10-30-19 ED Note-Physician [id number]#1.00 TIFF Normal [facility] Lab Reportson 10-30-2023 Lab Reports [id number]#1.00T IFF Normal [facility] Lab Reports [id number]#1.00T IFF Normal [facility] Urology Office/Clinic Noteon 10-26-2023 Urology Office/Clinic Note Chief Complaint S/P to Cysto with Botox HPI Staff KML pt. Here for f/u to Botox 100u done 05/22/23. R/s'd appt from 06/28/23. Previous dx: renal cyst, mixed incontinence, feeling of incomplete bladder emptying, glucosuria. Pt was referred to Dr. Ballard at [facility] for evaluation of robotic left cyst [...] Assessment/Plan 1. 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 BURKE [...] procedure. This is confusing bc review of [facility]'s op report shows completely normal events (lidocaine instilled normally, 10 injections of 2ml each) so it's unclear if pt received full 100units or not. Pt called 06/08/23 c/o worsening leakage after Botox. PVR was 174 cc (compared to 142cc prior to botox). [facility] recommended to start CIC 3x/day for residual, timed voids q2hr, and tight DM control. Pt was in [facility] ER 06/19 and treated for E [...] kidney measuri (more content not included)... Normal [facility] Comment on above: Result Comment: Elec tronically Signed By: HEIDY ARNOLD PA-C\.br\Date and Time Signed: 10/26/23 11:50 EST\.br\Electronically Co-Signed By: Dina Jolly\.br\Date and Time Co-Signed: 10/25/23 16:39 EST Ambulatory Visit Summaryon 0 10-25-2023 Ambulatory Visit Summary AISLINN WHEELER Ashok :1960 Visit Date:10/25/2023 Ambulatory Visit Instructions Your [...] HEIDY ARNOLD PA-C, URL When: Where: [address] [place] [place] [address] Medications What How Much When Instructions Unchanged [...] including vitamins, herbs, eye drops, creams, and wigf-xby-wdvsfgg medicines. ? Any problems you or family [...] Do no (more content not included)... Normal [facility] Patient Educationon 10-25-19 24 Patient Education Urology [...] including vitamins, herbs, eye drops, creams, and hxqe-njo-brfkoye medicines. ? Any problems you or family [...] tells you to take them. ? Taking rdpq-mnx-ryssnnh medicines, vitamins, herbs, and supplements. General instructions [...] these instructions at home: Medicines ? Take ujyy-bbw-tswxuaj and prescription medicines only as told by [...] health ca (more content not included)... Normal [facility] Glucose Glucometer (dC) [M ass/Vol]on 10-13-2023 Glucose [Mass/Vol] 276 mg/dL High 65-99 [facility] Glucose Glucometer (BldC) [M ass/Vol]on 09-29-2023 Glucose [Mass/Vol] 356 mg/dL High 65-99 [facility] CNPNon 09-27-2023 CNPN Telephone (FVPRAD) AISLINN WHEELER ([id number]) 1960 F Date Time Provider Department 09/27/23 DREW BUCKNER FVPRAD During your visit today, we recorded the following information about you: Drew Buckner, Research Coordinator 09/27/2023 2:33 PM Signed IRB# [id number]: Vascular events in patients undergoing same-day nonCardiac surgery - [place] PI: Mary Rojas MD, LETY, FASA. Outcomes Research Department. Anesthesia Rocky. [facility]. Aislinn Wheeler was unavailable at the listed phone number. We will attempt to contact the patient through Lotame message. Drew Esqueda, Research Coordinator Research Coordinator Allergies As of Date: 09/27/2023 Noted Allergy Reaction LATEX 02/05/2020 2 - Rash Comments: Added based on information entered during case entry, please review and add reactions, type, and severity as needed Date Reviewed: 09/03/2023 Reviewed by: Chuck Kirk, RN - Fully Assessed Reason for Visit: Research F/U [048] Prescriptions as of 09/27/2023 - pregabalin (LYRICA) [...] Encounter Status:Closed by DREW BUCKNER on 09/27/23 [facility] 09-26-2023 CNPN Telephone (FVPRAD) AISLINN WHEELER ([id number]) 1960 F Date Time Provider Department 09/26/23 DREW BUCKNER FVPRAD During your visit today, we recorded the following information about you: Drew Buckner, Research Coordinator 09/26/2023 3:32 PM Signed IRB# [id number]: Vascular events in patients undergoing same-day nonCardiac surgery - [place] PI: Mary Rojas MD, LETY, FASA. Outcomes Research Department. Anesthesia Rocky. [facility]. Aislinn Wheeler was unavailable at [...] Fully Assessed Reason for Visit: Research F/U [785] Prescriptions as of 09/26/2023 - pregabalin (LYRICA) [...] Encounter Status:Closed by DREW BUCKNER on 09/26/23 [facility] CNDSon 09-04-2023 CNDS HNO ID: [id number] Author: ANTHONY BARROW MD Service: Hospital Medicine [...] Provider Department Center 10/06/2023 1:00 PM US [facility] BRITTANIE VALDES [facility] Brittanie 10/06/2023 2:00 PM LAB [facility] [place] [facility] Brittanie 10/11/2023 1:50 PM Taurus Ballard MD [facility] ALLERGIES Allergen Reactions Latex Rash Added [...] INSULIN SUBCUTANEO (more content not included)... [facility] ALLIED HEALTHon 09-03-2023 ALLIED HEALTH HNO ID: [id number] Author: NICOL MILLIGAN RT(R) Service: Radiology Author [...] Michael(R) September 03, 2023 2:57 PM [facility] Basic metabolic 2000 panelon 09-03-2023 Anion gap [Moles/Vol] 10 mmol/L Normal 9-18 [facility] Comment on above: Order Comment: [place] Type: BLOOD SPECIMEN Ordering Facility: [facility] Address: [address] [place] [address] Performed By: #### 2 4321-2 #### [facility] CLIA [id number] [address] [place] [address] [place] Calcium [Mass/Vol] 8.8 mg/dL Normal 8.5-10.2 [facility] Comment on above: Order Comment: Speci reinier Type: BLOOD SPECIMEN Ordering Facility: [facility] Address: [address] [place] [address] Performed By: #### 2 4321-2 #### [facility] CLIA [id number] [address] [place] [address] [place] Chloride [Moles/Vol] 103 mmol/L Normal 97-105 [facility] Comment on above: Order Comment: Speci men Type: BLOOD SPECIMEN Ordering Facility: [facility] Address: [address] [place] [address] Performed By: #### 2 4321-2 #### [facility] CLIA [id number] [address] [place] [address] [place] CO2 [Moles/Vol] 23 mmol/L Normal 22-30 [facility] Comment on above: Order Comment: Speci men Type: BLOOD SPECIMEN Ordering Facility: [facility] Address: [address] [place] [address] Performed By: #### 2 4321-2 #### [facility] CLIA [id number] [address] [place] [address] [place] Creatinine [Mass/Vol] 1.29 mg/dL High 0.58-0.96 [facility] Comment on above: Order Comment: Speci men Type: BLOOD SPECIMEN Ordering Facility: [facility] Address: [address] [place] [address] Performed By: #### 2 4321-2 #### [facility] CLIA [id number] [address] [place] [address] [place] Creatinine and Glomerular filtration rate.predicted panel (S/P/Bld) 46 mL/min/1.73m??? Low >=60 [facility] Comment on above: Order Comment: Speci men Type: BLOOD SPECIMEN Ordering Facility: [facility] Address: [address] [place] [address] Result Comment: Donna mated Glomerular Filtration Rate [...] GFR. Performed By: #### 2 4321-2 #### [facility] CLIA [id number] [address] [place] [address] [place] Glucose [Mass/Vol] 123 mg/dL High 74-99 [facility] Comment on above: Order Comment: [place] Type: BLOOD SPECIMEN Ordering Facility: [facility] Address: [address] [place] [address] Result Comment: The [employer] (ADA) [...] 1). Performed By: #### 2 4321-2 #### [facility] CLIA [id number] [address] [place] [address] [place] Potassium [Moles/Vol] 5.0 mmol/L Normal 3.7-5.1 [facility] Comment on above: Order Comment: [place] Type: BLOOD SPECIMEN Ordering Facility: [facility] Address: [address] [place] [address] Performed By: #### 2 4321-2 #### [facility] CLIA [id number] [address] [place] [address] [place] Sodium [Moles/Vol] 136 mmol/L Normal 136-144 [facility] Comment on above: Order Comment: [place] Type: BLOOD SPECIMEN Ordering Facility: [facility] Address: [address] [place] [address] Performed By: #### 2 4321-2 #### [facility] CLIA [id number] [address] [place] [address] [place] Urea nitrogen [Mass/Vol] 22 mg/dL High 7-21 [facility] Comment on above: Order Comment: Speci men Type: BLOOD SPECIMEN Ordering Facility: [facility] Address: [address] [place] [address] Performed By: #### 2 4321-2 #### [facility] CLIA [id number] [address] [place] [address] [place] CBC panel Auto (Bld)on 09-03 Erythrocyte distribution width (RBC) [Ratio] 14.6 % Normal 11.5-15.0 [facility] Comment on above: Order Comment: Speci men Type: BLOOD SPECIMEN Ordering Facility: [facility] Address: [address] [place] [address] Performed By: #### [place], [address]69-9 #### [facility] CLIA [id number] [address] [place] [address] [place] Hematocrit (Bld) [Volume fraction] 28.7 % Low 36.0-46.0 [facility] Comment on above: Order Comment: Speci men Type: BLOOD SPECIMEN Ordering Facility: [facility] Address: [address] [place] [address] Performed By: #### B HB, 83212-5 #### [facility] CLIA [id number] [address] [place] [address] [place] Hemoglobin (Bld) [Mass/Vol] 8.9 g/dL Low 11.5-15.5 [facility] Comment on above: Order Comment: Speci men Type: BLOOD SPECIMEN Ordering Facility: [facility] Address: [address] [place] [address] Performed By: #### [place], 91965-5 #### [facility] CLIA [id number] [address] [place] [address] [place] MCH (RBC) [Entitic mass] 24.1 pg Low 26.0-34.0 [facility] Comment on above: Order Comment: Speci men Type: BLOOD SPECIMEN Ordering Facility: [facility] Address: [address] [place] [address] Performed By: #### B HB, 05810-1 #### [facility] CLIA [id number] [address] [place] [address] [place] MCHC (RBC) [Mass/Vol] 31.0 g/dL Normal 30.5-36.0 [facility] Comment on above: Order Comment: Speci men Type: BLOOD SPECIMEN Ordering Facility: [facility] Address: [address] [place] [address] Performed By: #### B HB, #### [facility] CLIA [id number] [address] [place] [address] [place] MCV (RBC) [Entitic vol] 77.6 fL Low 80.0-100.0 [facility] Comment on above: Order Comment: Speci men Type: BLOOD SPECIMEN Ordering Facility: [facility] Address: [address] [place] [address] Performed By: #### B HB, #### [facility] CLIA [id number] [address] [place] [address] [place] Nucleated RBC (Bld) [#/Vol] 10*3/uL Normal <0.01 [facility] Comment on above: Order Comment: Speci men Type: BLOOD SPECIMEN Ordering Facility: [facility] Address: [address] [place] [address] Performed By: #### B HB, #### [facility] CLIA [id number] [address] [place] [address] [place] Platelet mean volume (Bld) [Entitic vol] 10.8 fL Normal 9.0-12.7 [facility] Comment on above: Order Comment: Speci men Type: BLOOD SPECIMEN Ordering Facility: [facility] Address: [address] [place] [address] Performed By: #### B HB, #### [facility] CLIA [id number] [address] [place] [address] [place] Platelets (Bld) [#/Vol] 334 10*3/uL Normal 150-400 [facility] Comment on above: Order Comment: Speci men Type: BLOOD SPECIMEN Ordering Facility: [facility] Address: [address] [place] [address] Performed By: #### B [place], 21041-6 #### [facility] CLIA [id number] [address] [place] [id number] [place] RBC (Bld) [#/Vol] 3.70 10*6/uL Low 3.90-5.20 [facility] Comment on above: Order Comment: Speci men Type: BLOOD SPECIMEN Ordering Facility: [facility] Address: [address] [place] [address] Performed By: #### [place], 02140-5 #### [facility] CLIA [id number] [address] [place] [id number] [place] WBC (Bld) [#/Vol] 6.44 10*3/uL Normal 3.70-11.00 [facility] Comment on above: Order Comment: Speci men Type: BLOOD SPECIMEN Ordering Facility: [facility] Address: [address] [place] [address] Performed By: #### B HB, 41592-2 #### [facility] CLIA [id number] [address] [place] [address] [place] FOOT WO [...] NO EVIDENCE OF OSTEOMYELITIS ON THIS EXAMINATION. Rug [employer]ter [place]: GUILLE Transcribe Date/Time: Sep 03 2023 11:22P Dictated by : FINESSE BUTLER MD This examination was interpreted and the report reviewed and electronically signed by: FINESSE BUTLER MD on Sep 03 2023 11:27PM EST [id number] Normal [facility] Basic metabolic 2000 panelon 09-02-2023 Anion gap [Moles/Vol] 9 mmol/L Normal 9-18 [facility] Comment on above: Order Comment: Speci men Type: BLOOD SPECIMEN Ordering Facility: [facility] Address: [address] [place] [address] Performed By: #### B HB, 26975-0 #### [facility] CLIA [id number] [address] [place] [address] [place] Calcium [Mass/Vol] 8.1 mg/dL Low 8.5-10.2 [facility] Comment on above: Order Comment: Speci men Type: BLOOD SPECIMEN Ordering Facility: [facility] Address: [address] [place] [address] Performed By: #### B HB, #### [facility] CLIA [id number] [address] [place] [address] [place] Chloride [Moles/Vol] 106 mmol/L High 97-105 [facility] Comment on above: Order Comment: Speci men Type: BLOOD SPECIMEN Ordering Facility: [facility] Address: [address] [place] [address] Performed By: #### B HB, 20560-0 #### [facility] CLIA [id number] [address] [place] [address] [place] CO2 [Moles/Vol] 22 mmol/L Normal 22-30 [facility] Comment on above: Order Comment: Speci men Type: BLOOD SPECIMEN Ordering Facility: [facility] Address: [address] [place] [address] Performed By: #### B HB, 82438-9 #### [facility] CLIA [id number] [address] [place] [address] [place] Creatinine [Mass/Vol] 1.30 mg/dL High 0.58-0.96 [facility] Comment on above: Order Comment: [place] Type: BLOOD SPECIMEN Ordering Facility: [facility] Address: [address] [place] [address] Performed By: #### B HB, 59865-1 #### [facility] CLIA [id number] [place] [address] [place] Creatinine and Glomerular filtration rate.predicted panel (S/P/Bld) 46 mL/min/1.73m??? Low >=60 [facility] Comment on above: Order Comment: [place] Type: BLOOD SPECIMEN Ordering Facility: [facility] Address: [address] [place] [address] Result Comment: Donna mated Glomerular Filtration Rate [...] actual GFR. Performed By: #### B HB, 56691-1 #### [facility] CLIA [id number] [place] [address] [place] Glucose [Mass/Vol] 192 mg/dL High 74-99 [facility] Comment on above: Order Comment: [place] Type: BLOOD SPECIMEN Ordering Facility: [facility] Address: [address] [place] [address] Result Comment: The [employer] (ADA) [...] 2016.39(Suppl 1). Performed By: #### [place], 61032-8 #### [facility] CLIA [id number] [address] [place] [address] [place] Potassium [Moles/Vol] 4.9 mmol/L Normal 3.7-5.1 [facility] Comment on above: Order Comment: Speci men Type: BLOOD SPECIMEN Ordering Facility: [facility] Address: [address] [place] [address] Performed By: #### B HB, 07498-6 #### [facility] CLIA [id number] [address] [place] [address] [place] Sodium [Moles/Vol] 137 mmol/L Normal 136-144 [facility] Comment on above: Order Comment: Speci men Type: BLOOD SPECIMEN Ordering Facility: [facility] Address: [address] [place] [address] Performed By: #### B HB, 48894-4 #### [facility] CLIA [id number] [address] [place] [address] [place] Urea nitrogen [Mass/Vol] 17 mg/dL Normal 7-21 [facility] Comment on above: Order Comment: Speci men Type: BLOOD SPECIMEN Ordering Facility: [facility] Address: [address] [place] [address] Performed By: #### B HB, 12714-8 #### [facility] CLIA [id number] [address] [place] [address] [place] CBC panel Auto (Bld)on 09-02 Erythrocyte distribution width (RBC) [Ratio] 14.6 % Normal 11.5-15.0 [facility] Comment on above: Order Comment: Speci men Type: BLOOD SPECIMEN Ordering Facility: [facility] Address: [address] [place] [address] Performed By: #### B HB, 00461-2 #### [facility] CLIA [id number] [address] [place] [address] [place] Hematocrit (Bld) [Volume fraction] 28.4 % Low 36.0-46.0 [facility] Comment on above: Order Comment: Speci men Type: BLOOD SPECIMEN Ordering Facility: [facility] Address: [address] [place] [address] Performed By: #### B HB, #### [facility] CLIA [id number] [address] [place] [address] [place] Hemoglobin (Bld) [Mass/Vol] 8.9 g/dL Low 11.5-15.5 [facility] Comment on above: Order Comment: Speci men Type: BLOOD SPECIMEN Ordering Facility: [facility] Address: [address] [place] [address] Performed By: #### B HB, #### [facility] CLIA [id number] [address] [place] [address] [place] MCH (RBC) [Entitic mass] 24.2 pg Low 26.0-34.0 [facility] Comment on above: Order Comment: Speci men Type: BLOOD SPECIMEN Ordering Facility: [facility] Address: [address] [place] [address] Performed By: #### B HB, #### [facility] CLIA [id number] [address] [place] [address] [place] MCHC (RBC) [Mass/Vol] 31.3 g/dL Normal 30.5-36.0 [facility] Comment on above: Order Comment: Speci men Type: BLOOD SPECIMEN Ordering Facility: [facility] Address: [address] [place] [address] Performed By: #### B HB, #### [facility] CLIA [id number] [address] [place] [address] [place] MCV (RBC) [Entitic vol] 77.2 fL Low 80.0-100.0 [facility] Comment on above: Order Comment: Speci men Type: BLOOD SPECIMEN Ordering Facility: [facility] Address: [address] [place] [address] Performed By: #### B HB, 03305-0 #### [facility] CLIA [id number] [address] [place] [address] [place] Nucleated RBC (Bld) [#/Vol] 10*3/uL Normal <0.01 [facility] Comment on above: Order Comment: Speci men Type: BLOOD SPECIMEN Ordering Facility: [facility] Address: [address] [place] [address] Performed By: #### B HB, 42594-3 #### [facility] CLIA [id number] [address] [place] [address] [place] Platelet mean volume (Bld) [Entitic vol] 10.4 fL Normal 9.0-12.7 [facility] Comment on above: Order Comment: Speci men Type: BLOOD SPECIMEN Ordering Facility: [facility] Address: [address] [place] [address] Performed By: #### B HB, #### [facility] CLIA [id number] [address] [place] [address] [place] Platelets (Bld) [#/Vol] 285 10*3/uL Normal 150-400 [facility] Comment on above: Order Comment: Speci men Type: BLOOD SPECIMEN Ordering Facility: [facility] Address: [address] [place] [address] Performed By: #### B HB, #### [facility] CLIA [id number] [address] [place] [address] [place] RBC (Bld) [#/Vol] 3.68 10*6/uL Low 3.90-5.20 [facility] Comment on above: Order Comment: Speci men Type: BLOOD SPECIMEN Ordering Facility: [facility] Address: [address] [place] [address] Performed By: #### B HB, 91338-8 #### [facility] CLIA [id number] [address] [place] [address] [place] WBC (Bld) [#/Vol] 5.94 10*3/uL Normal 3.70-11.00 [facility] Comment on above: Order Comment: Speci men Type: BLOOD SPECIMEN Ordering Facility: [facility] Address: [address] [place] [address] Performed By: #### [place], [address]-2 #### [facility] CLIA [id number] [address] [place] [address] [place] Bacteria Ur Culton Bacteria identified Cx Nom (U) CULTURE, URINE: No growth (<1,000 CFU/ml) Normal [facility] Comment on above: Performed By: #### 6 30-4 #### [facility] CLIA [id number] [address] [facility] [address] [id number] [address] [place] Basic metabolic 2000 panelon 09-01-2023 Anion gap [Moles/Vol] 10 mmol/L Normal 9-18 [facility] Comment on above: Order Comment: Speci men Type: BLOOD SPECIMEN Ordering Facility: [facility] Address: [address] [place] [address] Performed By: #### Kimberlyn HB, #### [facility] CLIA [id number] [address] [place] [address] [place] Calcium [Mass/Vol] 7.9 mg/dL Low 8.5-10.2 [facility] Comment on above: Order Comment: Speci men Type: BLOOD SPECIMEN Ordering Facility: [facility] Address: [address] [place] [address] Performed By: #### Kimberlyn HB, #### [facility] CLIA [id number] [address] [place] [address] [place] Chloride [Moles/Vol] 108 mmol/L High 97-105 [facility] Comment on above: Order Comment: Speci men Type: BLOOD SPECIMEN Ordering Facility: [facility] Address: [address] [place] [address] Performed By: #### B HB, 25093-7 #### [facility] CLIA [id number] [address] [place] [address] [place] CO2 [Moles/Vol] 20 mmol/L Low 22-30 [facility] Comment on above: Order Comment: [place] Type: BLOOD SPECIMEN Ordering Facility: [facility] Address: [address] [place] [address] Performed By: #### B [place], 37219-4 #### [facility] CLIA [id number] [address] [place] [address] [place] Creatinine [Mass/Vol] 1.39 mg/dL High 0.58-0.96 [facility] Comment on above: Order Comment: [place] Type: BLOOD SPECIMEN Ordering Facility: [facility] Address: [address] [place] [address] Performed By: #### B HB, 74020-8 #### [facility] CLIA [id number] [address] [place] [address] [place] Creatinine and Glomerular filtration rate.predicted panel (S/P/Bld) 42 mL/min/1.73m??? Low >=60 [facility] Comment on above: Order Comment: [place] Type: BLOOD SPECIMEN Ordering Facility: [facility] Address: [address] [place] [address] Result Comment: Donna mated Glomerular Filtration Rate [...] actual GFR. Performed By: #### B HB, 60340-5 #### [facility] CLIA [id number] [place] [address] [place] Glucose [Mass/Vol] 74 mg/dL Normal 74-99 [facility] Comment on above: Order Comment: [place] reinier Type: BLOOD SPECIMEN Ordering Facility: [facility] Address: [address] [place] [address] Result Comment: The [employer] (ADA) [...] 2016.39(Suppl 1). Performed By: #### B HB, 41493-7 #### [facility] CLIA [id number] [address] [place] [address] [place] Potassium [Moles/Vol] 4.7 mmol/L Normal 3.7-5.1 [facility] Comment on above: Order Comment: [place] Type: BLOOD SPECIMEN Ordering Facility: [facility] Address: [address] [place] [address] Performed By: #### B HB, 40118-4 #### [facility] CLIA [id number] [address] [place] [address] [place] Sodium [Moles/Vol] 138 mmol/L Normal 136-144 [facility] Comment on above: Order Comment: [place] Type: BLOOD SPECIMEN Ordering Facility: [facility] Address: [address] [place] [address] Performed By: #### B HB, 82739-4 #### [facility] CLIA [id number] [address] [place] [address] [place] Urea nitrogen [Mass/Vol] 25 mg/dL High 7-21 [facility] Comment on above: Order Comment: [place] Type: BLOOD SPECIMEN Ordering Facility: [facility] Address: [address] [place] [address] Performed By: #### B HB, 50302-0 #### [facility] CLIA [id number] [address] [place] [address] [place] CBC panel Auto (Bld)on 09-01 Erythrocyte distribution width (RBC) [Ratio] 14.7 % Normal 11.5-15.0 [facility] Comment on above: Order Comment: [place] Type: BLOOD SPECIMEN Ordering Facility: [facility] Address: [address] [place] [address] Performed By: #### B HB, #### [facility] CLIA [id number] [address] [place] [address] [place] Hematocrit (Bld) [Volume fraction] 29.4 % Low 36.0-46.0 [facility] Comment on above: Order Comment: Speci men Type: BLOOD SPECIMEN Ordering Facility: [facility] Address: [address] [place] [address] Performed By: #### B HB, #### [facility] CLIA [id number] [address] [place] [address] [place] Hemoglobin (Bld) [Mass/Vol] 9.1 g/dL Low 11.5-15.5 [facility] Comment on above: Order Comment: Speci men Type: BLOOD SPECIMEN Ordering Facility: [facility] Address: [address] [place] [address] Performed By: #### B HB, #### [facility] CLIA [id number] [address] [place] [address] [place] MCH (RBC) [Entitic mass] 24.4 pg Low 26.0-34.0 [facility] Comment on above: Order Comment: Speci men Type: BLOOD SPECIMEN Ordering Facility: [facility] Address: [address] [place] [address] Performed By: #### B HB, #### [facility] CLIA [id number] [address] [place] [address] [place] MCHC (RBC) [Mass/Vol] 31.0 g/dL Normal 30.5-36.0 [facility] Comment on above: Order Comment: Speci men Type: BLOOD SPECIMEN Ordering Facility: [facility] Address: [address] [place] [address] Performed By: #### B HB, #### [facility] CLIA [id number] [address] [place] [address] [place] MCV (RBC) [Entitic vol] 78.8 fL Low 80.0-100.0 [facility] Comment on above: Order Comment: Speci men Type: BLOOD SPECIMEN Ordering Facility: [facility] Address: [address] [place] [address] Performed By: #### B HB, #### [facility] CLIA [id number] [address] [place] [address] [place] Nucleated RBC (Bld) [#/Vol] 10*3/uL Normal <0.01 [facility] Comment on above: Order Comment: Speci men Type: BLOOD SPECIMEN Ordering Facility: [facility] Address: [address] [place] [address] Performed By: #### B HB, #### [facility] CLIA [id number] [address] [place] [address] [place] Platelet mean volume (Bld) [Entitic vol] 10.8 fL Normal 9.0-12.7 [facility] Comment on above: Order Comment: Speci men Type: BLOOD SPECIMEN Ordering Facility: [facility] Address: [address] [place] [address] Performed By: #### B HB, #### [facility] CLIA [id number] [address] [place] [address] [place] Platelets (Bld) [#/Vol] 275 10*3/uL Normal 150-400 [facility] Comment on above: Order Comment: Speci men Type: BLOOD SPECIMEN Ordering Facility: [facility] Address: [address] [place] [address] Performed By: #### B HB, 85418-1 #### [facility] CLIA [id number] [address] [place] [address] [place] RBC (Bld) [#/Vol] 3.73 10*6/uL Low 3.90-5.20 [facility] Comment on above: Order Comment: Speci men Type: BLOOD SPECIMEN Ordering Facility: [facility] Address: [address] [place] [address] Performed By: #### B HB, 73195-2 #### [facility] CLIA [id number] [address] [place] [address] [place] WBC (Bld) [#/Vol] 7.48 10*3/uL Normal 3.70-11.00 [facility] Comment on above: Order Comment: Speci men Type: BLOOD SPECIMEN Ordering Facility: [facility] Address: [address] [place] [address] Performed By: #### B HB, 68906-1 #### [facility] CLIA [id number] [address] [place] [address] [place] CONSULTon 09-01-2023 CONSULT HNO ID: [id number] Author: NORMAN ROUSSEAU RN Service: ? Author [...] 2023 TIME: 10:44 AM PAGER/CONTACT #: Normal [facility] Magnesium SerPl-mCncon 09-01 Magnesium [Mass/Vol] 1.5 mg/dL Low 1.7-2.3 [facility] Comment on above: Order Comment: Speci men Type: BLOOD SPECIMEN Ordering Facility: [facility] Address: [address] [place] [address] Performed By: #### B HB, 05589-7 #### [facility] CLIA [id number] [address] [place] [address] [place] URINALYSIS, REFLEX MICROSCOP ICon 09-01-2023 Bacteria LM.HPF (Urine sed) [#/Area] Few Abnormal None Seen [facility] Comment on above: Order Comment: Speci men Type: BLOOD SPECIMEN Ordering Facility: [facility] Address: [address] [place] [address] Performed By: #### B HB, 39077-5 #### [facility] CLIA [id number] [address] [place] [address] [place] Bilirubin Ql (U) Negative Normal Negative [facility] Comment on above: Order Comment: Speci men Type: BLOOD SPECIMEN Ordering Facility: [facility] Address: [address] [place] [address] Performed By: #### B HB, #### [facility] CLIA [id number] [address] [place] Clarity (Unsp spec) Turbid Abnormal Clear [facility] Comment on above: Order Comment: Speci men Type: BLOOD SPECIMEN Ordering Facility: [facility] Address: [address] [place] [address] Performed By: #### B HB, #### [facility] CLIA [id number] [address] [place] [address] [place] Color (U) Light Yellow Normal Yellow [facility] Comment on above: Order Comment: Speci men Type: BLOOD SPECIMEN Ordering Facility: [facility] Address: [address] [place] [address] Performed By: #### B HB, #### [facility] CLIA [id number] [address] [place] [address] [place] Epithelial cells LM.HPF (Urine sed) [#/Area] Few Normal [facility] Comment on above: Order Comment: Speci men Type: BLOOD SPECIMEN Ordering Facility: [facility] Address: [address] [place] [address] Performed By: #### B HB, #### [facility] CLIA [id number] [address] [place] [address] [place] Glucose Test strip (U) [Mass/Vol] Negative Normal Trace, Negative [facility] Comment on above: Order Comment: Speci men Type: BLOOD SPECIMEN Ordering Facility: [facility] Address: [address] [place] [address] Performed By: #### B HB, #### [facility] CLIA [id number] [address] [place] [address] [place] Hemoglobin Ql (U) 1+ Abnormal Negative, Trace [facility] Comment on above: Order Comment: Speci men Type: BLOOD SPECIMEN Ordering Facility: [facility] Address: [address] [place] [address] Performed By: #### B HB, #### [facility] CLIA [id number] [address] [place] [address] [place] Ketones Ql (U) Negative Normal Negative, Trace [facility] Comment on above: Order Comment: Speci men Type: BLOOD SPECIMEN Ordering Facility: [facility] Address: [address] [place] [address] Performed By: #### B HB, #### [facility] CLIA [id number] [address] [place] [address] [place] Leukocyte esterase Test strip Ql (U) 500 Liam/uL Abnormal Negative, 25 Liam/uL [facility] Comment on above: Order Comment: Speci men Type: BLOOD SPECIMEN Ordering Facility: [facility] Address: [address] [place] [address] Performed By: #### B HB, #### [facility] CLIA [id number] [address] [place] [address] [place] Nitrite Ql (U) Negative Normal Negative [facility] Comment on above: Order Comment: Speci men Type: BLOOD SPECIMEN Ordering Facility: [facility] Address: [address] [place] [address] Performed By: #### B HB, #### [facility] CLIA [id number] [address] [place] [address] [place] pH (U) 6.0 [pH] Normal 5.0-8.0 [facility] Comment on above: Order Comment: Speci men Type: BLOOD SPECIMEN Ordering Facility: [facility] Address: [address] [place] [address] Performed By: #### B HB, #### [facility] CLIA [id number] [address] [place] [address] [place] Protein (U) [Mass/Vol] 1+ Abnormal Trace, Negative [facility] Comment on above: Order Comment: Speci men Type: BLOOD SPECIMEN Ordering Facility: [facility] Address: [address] [place] [address] Performed By: #### B HB, #### [facility] CLIA [id number] [address] [place] [address] [place] RBC LM.HPF (Urine sed) [#/Area] /[HPF] Abnormal 0-3 /HPF [facility] Comment on above: Order Comment: Speci men Type: BLOOD SPECIMEN Ordering Facility: [facility] Address: [address] [place] [address] Performed By: #### B HB, #### [facility] CLIA [id number] [address] [place] [address] [place] Specific gravity (U) [Rel density] 1.011 Normal 1.005-1.030 [facility] Comment on above: Order Comment: Speci men Type: BLOOD SPECIMEN Ordering Facility: [facility] Address: [address] [place] [address] Performed By: #### B HB, #### [facility] CLIA [id number] [address] [place] [address] Urobilinogen Ql (U) Negative Normal Negative [facility] Comment on above: Order Comment: Speci men Type: BLOOD SPECIMEN Ordering Facility: [facility] Address: [address] [place] [address] Performed By: #### B HB, #### [facility] CLIA [id number] [address] [place] [address] [place] WBC LM.HPF (Urine sed) [#/Area] /[HPF] Abnormal 0-5 /HPF [facility] Comment on above: Order Comment: Speci men Type: BLOOD SPECIMEN Ordering Facility: [facility] Address: [address] [place] [address] Performed By: #### B HB, #### [facility] CLIA [id number] [address] [place] [address] [place] ALLIED HEALTHon 08-31-2023 ALLIED HEALTH HNO ID: [id number] Author: LAKISHA LITTLE RT(R) Service: ? Author [...] RT Chriss(R) August 31, 2023 4:44 AM [facility] Bacteria Bld Culton 08-31-19 24 Bacteria identified Cx Nom (Bld) CULTURE, BLOOD: No growth 5 days Normal [facility] Comment on above: Performed By: #### 6 00-7 ####[facility] [id number] [place] [address] [place] Bacteria Ur Culton [...] technique or straight catheterization for???urine???collectio n. Normal [facility] Comment on above: Performed By: #### 6 30-4 #### [facility] CLIA [id number] [address] [place] [address] [place] CBC W Auto Differential pane l (Bld)on 08-31-2023 Basophils (Bld) [#/Vol] 0.03 10*3/uL Normal <0.11 [facility] Comment on above: Order Comment: Speci men Type: BLOOD SPECIMEN Ordering Facility: [facility] Address: [address] [place] [address] Performed By: #### B HB, #### [facility] CLIA [id number] [address] [place] [address] [place] Basophils/100 WBC (Bld) 0.3 % Normal [facility] Comment on above: Order Comment: Speci men Type: BLOOD SPECIMEN Ordering Facility: [facility] Address: [address] [place] [address] Performed By: #### B HB, #### [facility] CLIA [id number] [address] [place] [address] [place] Differential cell count method Nom (Bld) Auto Normal [facility] Comment on above: Order Comment: Speci men Type: BLOOD SPECIMEN Ordering Facility: [facility] Address: [address] [place] [address] Performed By: #### B HB, #### [facility] CLIA [id number] [address] [place] [address] [place] Eosinophils (Bld) [#/Vol] 10*3/uL Normal <0.46 [facility] Comment on above: Order Comment: Speci men Type: BLOOD SPECIMEN Ordering Facility: [facility] Address: [address] [place] [address] Performed By: #### B HB, #### [facility] CLIA [id number] [address] [place] [address] [place] Eosinophils/100 WBC (Bld) 0.1 % Normal [facility] Comment on above: Order Comment: Speci men Type: BLOOD SPECIMEN Ordering Facility: [facility] Address: [address] [place] [address] Performed By: #### B HB, #### [facility] CLIA [id number] [address] [place] [address] [place] Erythrocyte distribution width (RBC) [Ratio] 14.5 % Normal 11.5-15.0 [facility] Comment on above: Order Comment: Speci men Type: BLOOD SPECIMEN Ordering Facility: [facility] Address: [address] [place] [address] Performed By: #### B HB, #### [facility] CLIA [id number] [address] [place] [address] [place] Hematocrit (Bld) [Volume fraction] 31.5 % Low 36.0-46.0 [facility] Comment on above: Order Comment: Speci men Type: BLOOD SPECIMEN Ordering Facility: [facility] Address: [address] [place] [address] Performed By: #### B HB, #### [facility] CLIA [id number] [address] [place] [address] [place] Hemoglobin (Bld) [Mass/Vol] 10.0 g/dL Low 11.5-15.5 [facility] Comment on above: Order Comment: Speci men Type: BLOOD SPECIMEN Ordering Facility: [facility] Address: [address] [place] [address] Performed By: #### B HB, #### [facility] CLIA [id number] [address] [place] [address] [place] Immature granulocytes (Bld) [#/Vol] 0.06 10*3/uL Normal <0.10 [facility] Comment on above: Order Comment: Speci men Type: BLOOD SPECIMEN Ordering Facility: [facility] Address: [address] [place] [address] Performed By: #### B HB, #### [facility] CLIA [id number] [address] [place] [address] [place] Immature granulocytes/100 WBC (Bld) 0.7 % Normal [facility] Comment on above: Order Comment: Speci men Type: BLOOD SPECIMEN Ordering Facility: [facility] Address: [address] [place] [address] Performed By: #### B HB, #### [facility] CLIA [id number] [address] [place] [address] [place] Lymphocytes (Bld) [#/Vol] 1.67 10*3/uL Normal 1.00-4.00 [facility] Comment on above: Order Comment: Speci men Type: BLOOD SPECIMEN Ordering Facility: [facility] Address: [address] [place] [address] Performed By: #### B HB, #### [facility] CLIA [id number] [address] [place] [address] [place] Lymphocytes/100 WBC (Bld) 18.8 % Normal [facility] Comment on above: Order Comment: Speci men Type: BLOOD SPECIMEN Ordering Facility: [facility] Address: [address] [place] [address] Performed By: #### B HB, #### [facility] CLIA [id number] [address] [place] [address] [place] MCH (RBC) [Entitic mass] 24.5 pg Low 26.0-34.0 [facility] Comment on above: Order Comment: Speci men Type: BLOOD SPECIMEN Ordering Facility: [facility] Address: [address] [place] [address] Performed By: #### B HB, #### [facility] CLIA [id number] [address] [place] [address] [place] MCHC (RBC) [Mass/Vol] 31.7 g/dL Normal 30.5-36.0 [facility] Comment on above: Order Comment: Speci men Type: BLOOD SPECIMEN Ordering Facility: [facility] Address: [address] [place] [address] Performed By: #### B HB, #### [facility] CLIA [id number] [address] [place] [address] [place] MCV (RBC) [Entitic vol] 77.2 fL Low 80.0-100.0 [facility] Comment on above: Order Comment: Speci men Type: BLOOD SPECIMEN Ordering Facility: [facility] Address: [address] [place] [address] Performed By: #### B HB, #### [facility] CLIA [id number] [address] [place] [address] [place] Monocytes (Bld) [#/Vol] 0.71 10*3/uL Normal <0.87 [facility] Comment on above: Order Comment: Speci men Type: BLOOD SPECIMEN Ordering Facility: [facility] Address: [address] [place] [address] Performed By: #### B HB, #### [facility] CLIA [id number] [address] [place] [address] [place] Monocytes/100 WBC (Bld) 8.0 % Normal [facility] Comment on above: Order Comment: Speci men Type: BLOOD SPECIMEN Ordering Facility: [facility] Address: [address] [place] [address] Performed By: #### B HB, #### [facility] CLIA [id number] [address] [place] [address] [place] Neutrophils (Bld) [#/Vol] 6.39 10*3/uL Normal 1.45-7.50 [facility] Comment on above: Order Comment: Speci men Type: BLOOD SPECIMEN Ordering Facility: [facility] Address: [address] [place] [address] Performed By: #### B HB, #### [facility] CLIA [id number] [address] [place] [address] [place] Neutrophils/100 WBC (Bld) 72.1 % Normal [facility] Comment on above: Order Comment: Speci men Type: BLOOD SPECIMEN Ordering Facility: [facility] Address: [address] [place] [address] Performed By: #### B HB, #### [facility] CLIA [id number] [address] [place] [address] [place] Nucleated RBC (Bld) [#/Vol] 10*3/uL Normal <0.01 [facility] Comment on above: Order Comment: Speci men Type: BLOOD SPECIMEN Ordering Facility: [facility] Address: [address] [place] [address] Performed By: #### B HB, #### [facility] CLIA [id number] [address] [place] [address] [place] Nucleated RBC/100 WBC (Bld) [Ratio] 0.0 /100 WBC Normal [facility] Comment on above: Order Comment: Speci men Type: BLOOD SPECIMEN Ordering Facility: [facility] Address: [address] [place] [address] Performed By: #### B HB, #### [facility] CLIA [id number] [address] [place] [address] [place] Platelet mean volume (Bld) [Entitic vol] 11.3 fL Normal 9.0-12.7 [facility] Comment on above: Order Comment: Speci men Type: BLOOD SPECIMEN Ordering Facility: [facility] Address: [address] [place] [address] Performed By: #### B HB, #### [facility] CLIA [id number] [address] [place] [address] [place] Platelets (Bld) [#/Vol] 316 10*3/uL Normal 150-400 [facility] Comment on above: Order Comment: Speci men Type: BLOOD SPECIMEN Ordering Facility: [facility] Address: [address] [place] [address] Performed By: #### B HB, #### [facility] CLIA [id number] [address] [place] [address] [place] RBC (Bld) [#/Vol] 4.08 10*6/uL Normal 3.90-5.20 [facility] Comment on above: Order Comment: Speci men Type: BLOOD SPECIMEN Ordering Facility: [facility] Address: [address] [place] [address] Performed By: #### B HB, #### [facility] CLIA [id number] [address] [place] [address] [place] WBC (Bld) [#/Vol] 8.87 10*3/uL Normal 3.70-11.00 [facility] Comment on above: Order Comment: Speci men Type: BLOOD SPECIMEN Ordering Facility: [facility] Address: [address] [place] [address] Performed By: #### B [place], 08157-2 #### [facility] CLIA [id number] [address] [place] [address] [place] Comprehensive metabolic 2000 panelon 08-31-2023 Albumin [Mass/Vol] 3.7 g/dL Low 3.9-4.9 [facility] Comment on above: Order Comment: Speci men Type: BLOOD SPECIMEN Ordering Facility: [facility] Address: [address] [place] [address] Performed By: #### B HB, 18080-2 #### [facility] CLIA [id number] [address] [place] [address] [place] ALP [Catalytic activity/Vol] 99 U/L Normal 34-123 [facility] Comment on above: Order Comment: Speci men Type: BLOOD SPECIMEN Ordering Facility: [facility] Address: [address] [place] [address] Performed By: #### B [place], 59888-3 #### [facility] CLIA [id number] [address] [place] [address] [place] ALT [Catalytic activity/Vol] U/L Low 7-38 [facility] Comment on above: Order Comment: Speci men Type: BLOOD SPECIMEN Ordering Facility: [facility] Address: [address] [place] [address] Performed By: #### B [place], 77505-4 #### [facility] CLIA [id number] [address] [place] [address] [place] Anion gap [Moles/Vol] 12 mmol/L Normal 9-18 [facility] Comment on above: Order Comment: Speci men Type: BLOOD SPECIMEN Ordering Facility: [facility] Address: [address] [place] [address] Performed By: #### B [place], 79389-3 #### [facility] CLIA [id number] [place] [address] [place] AST [Catalytic activity/Vol] 7 U/L Low 13-35 [facility] Comment on above: Order Comment: Speci men Type: BLOOD SPECIMEN Ordering Facility: [facility] Address: [address] [place] [address] Performed By: #### B HB, #### [facility] CLIA [id number] [address] [place] [address] [place] Bilirubin [Mass/Vol] 0.3 mg/dL Normal 0.2-1.3 [facility] Comment on above: Order Comment: Speci men Type: BLOOD SPECIMEN Ordering Facility: [facility] Address: [address] [place] [address] Performed By: #### B HB, #### [facility] CLIA [id number] [address] [place] [address] [place] Calcium [Mass/Vol] 8.7 mg/dL Normal 8.5-10.2 [facility] Comment on above: Order Comment: Speci men Type: BLOOD SPECIMEN Ordering Facility: [facility] Address: [address] [place] [address] Performed By: #### B HB, #### [facility] CLIA [id number] [address] [place] [address] [place] Chloride [Moles/Vol] 99 mmol/L Normal 97-105 [facility] Comment on above: Order Comment: Speci men Type: BLOOD SPECIMEN Ordering Facility: [facility] Address: [address] [place] [address] Performed By: #### B HB, #### [facility] CLIA [id number] [address] [place] [address] [place] CO2 [Moles/Vol] 19 mmol/L Low 22-30 [facility] Comment on above: Order Comment: Speci men Type: BLOOD SPECIMEN Ordering Facility: [facility] Address: [address] [place] [address] Performed By: #### B HB, #### [facility] CLIA [id number] [address] [place] [address] [place] Creatinine [Mass/Vol] 2.15 mg/dL High 0.58-0.96 [facility] Comment on above: Order Comment: Speci men Type: BLOOD SPECIMEN Ordering Facility: [facility] Address: [address] [place] [address] Performed By: #### B HB, 58935-0 #### [facility] CLIA [id number] [address] [place] [address] [place] Creatinine and Glomerular filtration rate.predicted panel (S/P/Bld) 25 mL/min/1.73m??? Low >=60 [facility] Comment on above: Order Comment: [place] Type: BLOOD SPECIMEN Ordering Facility: [facility] Address: [address] [place] [address] Result Comment: Donna mated Glomerular Filtration Rate [...] actual GFR. Performed By: #### B HB, 09890-9 #### [facility] CLIA [id number] [address] [place] [address] [place] Glucose [Mass/Vol] 428 mg/dL High 74-99 [facility] Comment on above: Order Comment: [place] Type: BLOOD SPECIMEN Ordering Facility: [facility] Address: [address] [place] [address] Result Comment: The [employer] (ADA) [...] 2016.39(Suppl 1). Performed By: #### B HB, 98197-2 #### [facility] CLIA [id number] [place] [address] [place] Potassium [Moles/Vol] 5.2 mmol/L High 3.7-5.1 [facility] Comment on above: Order Comment: Speci men Type: BLOOD SPECIMEN Ordering Facility: [facility] Address: [address] [place] [address] Performed By: #### B HB, 40668-3 #### [facility] CLIA [id number] [address] [place] [address] [place] Protein [Mass/Vol] 9.1 g/dL High 6.3-8.0 [facility] Comment on above: Order Comment: Speci men Type: BLOOD SPECIMEN Ordering Facility: [facility] Address: [address] [place] [address] Performed By: #### Kimberlyn HB, #### [facility] CLIA [id number] [address] [place] [address] [place] Sodium [Moles/Vol] 130 mmol/L Low 136-144 [facility] Comment on above: Order Comment: Speci men Type: BLOOD SPECIMEN Ordering Facility: [facility] Address: [address] [place] [address] Performed By: #### Kimberlyn HB, #### [facility] CLIA [id number] [address] [place] [address] [place] Urea nitrogen [Mass/Vol] 39 mg/dL High 7-21 [facility] Comment on above: Order Comment: Speci men Type: BLOOD SPECIMEN Ordering Facility: [facility] Address: [address] [place] [address] Performed By: #### B HB, #### [facility] CLIA [id number] [address] [place] [address] [place] ECG COMPLETEon 08-31-2023 ECG COMPLETE Ventricular Rate : 7 1 BPM Atrial Rate : 71 BPM P-R Interval : 166 ms QRS Duration : 80 ms Q-T Interval : 396 ms QTC Calculation(Bazett) : 431 ms Calculated P [place] : 82 degrees Calculated R [place] : 71 degrees Calculated T [place] : 48 degrees Sinus rhythm Normal ECG NO STEMI. 0752 Confirmed by MD DE LEON MICHAEL ([id number]), editor in chief newspaper THERESA SEAY ([id number]) on 08/31/2023 1:24:15 PM NAME : AISLINN WHEELER PID : [id number] : 1960 Gender : Female Race : ORD : [id number] Procedure Date : Aug 31 2023 07:16:42 Edit Date : Aug 31 2023 13:24:16 Diagnosis: Sinus rhythm Normal ECG NO STEMI. 0752 Confirmed by MD DE LEON MICHAEL ([id number]), editor in chief newspaper THERESA SEAY ([id number]) on 08/31/2023 1:24:15 PM Test Reason : Chest Pain Location : 402 : FVED fved05 Overread By : MD DE LEON MICHAEL Edited By : THERESA SEAY Referred By : , Acquired by : [id number], [facility] ECG COMPLETE Ventricular Rate : 8 8 BPM Atrial Rate : 88 BPM P-R Interval : 153 ms QRS Duration : 78 ms Q-T Interval : 370 ms QTC Calculation(Bazett) : 448 ms Calculated P [place] : 85 degrees Calculated R [place] : 69 degrees Calculated T [place] : 62 degrees Sinus rhythm Normal ECG NO STEMI. 0604 Confirmed by KASIE SANDOVAL MD ([id number]), editor in chief newspaper THERESA SEAY ([id number]) on 08/31/2023 1:02:55 PM NAME : AISLINN WHEELER PID : [id number] : 1960 Gender : Female Race : ORD : [id number] Procedure Date : Aug 31 2023 04:17:52 Edit Date : Aug 31 2023 13:02:57 Diagnosis: Sinus rhythm Normal ECG NO STEMI. 0604 Confirmed by KASIE SANDOVAL MD ([id number]), editor in chief newspaper THERESA SEAY ([id number]) on 08/31/2023 1:02:55 PM Test Reason : Arrhythmia Location : 402 : FVED fved05 Overread By : KASIE SANDOVAL MD Edited By : THERESA SEAY Referred By : , Acquired by : [id number], [facility] ED PROV NOTEon 08-31-2023 ED PROV NOTE HNO ID: [id number] Author: RAYNA RHODES PA-C Service: Emergency Medicine Author Type: Physician It Data Architect Type: ED Provider Notes Filed: 08/31/2023 08:06 [...] left foot. 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 Normal [facility] FLUABV+SARS-CoV-2+RSV Pnl Re sp ADRIEL+probeon 08-31-2023 FLUABV+SARS-CoV-2+RS V Pnl Resp ADRIEL+probe COVID 19 RESULT: Not detected The method used is RT-PCR or an equivalent NAAT method. Reference Range(the expected result in uninfected individuals): Not detected INFLUENZA A PCR: Not detected INFLUENZA B PCR: Not detected RSV PCR: Not detected Normal [facility] Comment on above: Performed By: #### 9 5941-1 ####[facility] [id number] [place] [address] [place] Gas and Carbon monoxide pane l (BldV)on 08-31-2023 BASE DEFICIT, VENOUS -5 mmol/L Low -2-0 [facility] Comment on above: Order Comment: Speci men Type: VENOUS BLOOD SPECIMEN Ordering Facility: [facility] Address: [address] [place] [address] Performed By: #### 2 4344-4 #### [facility] CLIA [id number] [place] [address] [place] Body temperature 100.04 [degF] Normal [facility] Comment on above: Order Comment: Speci men Type: VENOUS BLOOD SPECIMEN Ordering Facility: [facility] Address: [address] [place] [address] Performed By: #### 2 4344-4 #### [facility] CLIA [id number] [place] [address] [place] Calcium.ionized (Bld) [Mass/Vol] 1.08 mmol/L Normal 1.08-1.30 [facility] Comment on above: Order Comment: Speci men Type: VENOUS BLOOD SPECIMEN Ordering Facility: [facility] Address: [address] [place] [address] Performed By: #### 2 4344-4 #### [facility] CLIA [id number] [address] [place] [address] [place] Calcium.ionized adjusted to pH 7.4 (BldA) [Moles/Vol] 1.06 mmol/L Low 1.08-1.30 [facility] Comment on above: Order Comment: Speci men Type: VENOUS BLOOD SPECIMEN Ordering Facility: [facility] Address: [address] [place] [address] Performed By: #### 2 4344-4 #### [facility] CLIA [id number] [address] [place] [address] [place] Carboxyhemoglobin (BldV) [Mass fraction] 3.8 % High 0.0-2.0 [facility] Comment on above: Order Comment: Speci men Type: VENOUS BLOOD SPECIMEN Ordering Facility: [facility] Address: [address] [place] [address] Result Comment: Carb oxyhemoglobin Reference Range for Smokers: 2.0-8.0% Performed By: #### 2 4344-4 #### [facility] CLIA [id number] [address] [place] [address] [place] Chloride [Moles/Vol] 106 mmol/L High 97-105 [facility] Comment on above: Order Comment: Speci men Type: VENOUS BLOOD SPECIMEN Ordering Facility: [facility] Address: [address] [place] [address] Performed By: #### 2 4344-4 #### [facility] CLIA [id number] [address] [place] [address] [place] CO2 (BldV) [Partial pressure] 35 mm[Hg] Low 42-55 [facility] Comment on above: Order Comment: Speci men Type: VENOUS BLOOD SPECIMEN Ordering Facility: [facility] Address: [address] [place] [address] Performed By: #### 2 4344-4 #### [facility] CLIA [id number] [address] [place] [address] [place] CO2 adjusted to patient's actual temperature (BldV) [Partial pressure] Normal [facility] Comment on above: Order Comment: Speci men Type: VENOUS BLOOD SPECIMEN Ordering Facility: [facility] Address: [address] [place] [address] Performed By: #### 2 4344-4 #### [facility] CLIA [id number] [address] [place] [address] [place] Glucose [Mass/Vol] 460 mg/dL High 60-105 [facility] Comment on above: Order Comment: Speci men Type: VENOUS BLOOD SPECIMEN Ordering Facility: [facility] Address: [address] [place] [address] Performed By: #### 2 4344-4 #### [facility] CLIA [id number] [address] [place] [address] [place] HCO3 (Bld) [Moles/Vol] 19 mmol/L Low 24-28 [facility] Comment on above: Order Comment: Speci men Type: VENOUS BLOOD SPECIMEN Ordering Facility: [facility] Address: [address] [place] [address] Performed By: #### 2 4344-4 #### [facility] CLIA [id number] [address] [place] [address] [place] Hematocrit (Bld) [Volume fraction] 29.7 % Low 36.0-46.0 [facility] Comment on above: Order Comment: Speci men Type: VENOUS BLOOD SPECIMEN Ordering Facility: [facility] Address: [address] [place] [address] Performed By: #### 2 4344-4 #### [facility] CLIA [id number] [address] [place] [address] [place] Hemoglobin (Bld) [Mass/Vol] 9.6 g/dL Low 11.5-15.5 [facility] Comment on above: Order Comment: Speci men Type: VENOUS BLOOD SPECIMEN Ordering Facility: [facility] Address: [address] [place] [address] Performed By: #### 2 4344-4 #### [facility] CLIA [id number] [address] [place] [address] [place] Lactate [Moles/Vol] 1.1 mmol/L Normal 0.5-2.2 [facility] Comment on above: Order Comment: Speci men Type: VENOUS BLOOD SPECIMEN Ordering Facility: [facility] Address: [address] [place] [address] Performed By: #### 2 4344-4 #### [facility] CLIA [id number] [address] [place] [address] [place] Methemoglobin (Bld) [Mass fraction] 1.1 % Normal 0.0-1.5 [facility] Comment on above: Order Comment: Speci men Type: VENOUS BLOOD SPECIMEN Ordering Facility: [facility] Address: [address] [place] [address] Performed By: #### 2 4344-4 #### [facility] CLIA [id number] [address] [place] [address] O2 THERAPY RA=Room [facility] Comment on above: Order Comment: Speci men Type: VENOUS BLOOD SPECIMEN Ordering Facility: [facility] Address: [address] [place] [address] Performed By: #### 2 4344-4 #### [facility] CLIA [id number] [address] [place] [address] [place] Oxygen (BldV) [Partial pressure] 118 mm[Hg] High 35-45 [facility] Comment on above: Order Comment: Speci men Type: VENOUS BLOOD SPECIMEN Ordering Facility: [facility] Address: [address] [place] [address] Performed By: #### 2 4344-4 #### [facility] CLIA [id number] [address] [place] [address] [place] Oxygen adjusted to patient's actual temperature (BldV) [Partial pressure] [facility] Comment on above: Order Comment: Speci men Type: VENOUS BLOOD SPECIMEN Ordering Facility: [facility] Address: [address] [place] [address] Performed By: #### 2 4344-4 #### [facility] CLIA [id number] [address] [place] [address] [place] Oxygen saturation in Venous blood 99 % High 60-85 [facility] Comment on above: Order Comment: Speci men Type: VENOUS BLOOD SPECIMEN Ordering Facility: [facility] Address: [address] [place] [address] Performed By: #### 2 4344-4 #### [facility] CLIA [id number] [address] [place] [address] [place] Oxyhemoglobin (BldV) [Mass fraction] 94 % High 60-85 [facility] Comment on above: Order Comment: Speci men Type: VENOUS BLOOD SPECIMEN Ordering Facility: [facility] Address: [address] [place] [address] Performed By: #### 2 4344-4 #### [facility] CLIA [id number] [address] [place] [address] [place] pH (BldV) 7.37 [pH] Normal 7.32-7.42 [facility] Comment on above: Order Comment: Speci men Type: VENOUS BLOOD SPECIMEN Ordering Facility: [facility] Address: [address] [place] [address] Performed By: #### 2 4344-4 #### [facility] CLIA [id number] [address] [place] [address] [place] pH adjusted to patient's actual temperature (BldV) Normal [facility] Comment on above: Order Comment: Speci men Type: VENOUS BLOOD SPECIMEN Ordering Facility: [facility] Address: [address] [place] [address] Performed By: #### 2 4344-4 #### [facility] CLIA [id number] [address] [place] [address] [place] Potassium [Moles/Vol] 5.3 mmol/L High 3.5-5.0 [facility] Comment on above: Order Comment: Speci men Type: VENOUS BLOOD SPECIMEN Ordering Facility: [facility] Address: [address] [place] [address] Performed By: #### 2 4344-4 #### [facility] CLIA [id number] [address] [place] [address] [place] Sodium [Moles/Vol] 133 mmol/L Low 136-144 [facility] Comment on above: Order Comment: Speci men Type: VENOUS BLOOD SPECIMEN Ordering Facility: [facility] Address: [place] [address] Performed By: #### 2 4344-4 #### [facility] CLIA [id number] [address] [place] [address] [place] HISTORY PHYSICALon HISTORY PHYSICAL HNO ID: [id number] Author: ANTHONY BARROW MD Service: Hospital Medicine [...] left foot ulcer that patient was seen outsole cementer machine as outpatient for and advised her to [...] nts 08/31/23 1115 activity - mobilize patient (nc,oh) VTE Prophylaxis: VTE prophylaxis appropriate SIGNATURE: Anthony Barrow MD PATIENT NAME: Aislinn Wheeler DATE: August 31, 2023 TIME: 11:03 AM PAGER/CONTACT #: Normal [facility] KETONES/ACETONE/BHBon 2023 Beta hydroxybutyrate [Moles/Vol] 0.50 mmol/L High <0.28 [facility] Comment on above: Order Comment: Speci men Type: BLOOD SPECIMEN Ordering Facility: [facility] Address: [address] [place] [address] Performed By: #### B HB, 49738-8 #### [facility] CLIA [id number] [address] [place] [address] [place] POTASSIUM BLDon 08-31-2023 Potassium [Moles/Vol] 4.6 mmol/L Normal 3.7-5.1 [facility] Comment on above: Order Comment: Speci men Type: BLOOD SPECIMEN Ordering Facility: [facility] Address: [address] [place] [address] Performed By: #### B HB, 44555-2 #### [facility] CLIA [id number] [address] [place] [address] [place] SEPSIS LACTATEon 08-31-2023 Lactate [Moles/Vol] 1.2 mmol/L Normal 0.0-2.0 [facility] Comment on above: Order Comment: Speci men Type: BLOOD SPECIMEN Ordering Facility: [facility] Address: [address] [place] [address] Performed By: #### B HB, 65694-1 #### [facility] CLIA [id number] [address] [place] [address] [place] Urinalysis complete panel (U )on 08-31-2023 Bacteria LM.HPF (Urine sed) [#/Area] Many Abnormal None Seen [facility] Comment on above: Order Comment: Speci men Type: BLOOD SPECIMEN Ordering Facility: [facility] Address: [address] [place] [address] Performed By: #### B HB, #### [facility] CLIA [id number] [address] [place] [address] [place] Bilirubin Ql (U) Negative Normal Negative [facility] Comment on above: Order Comment: Speci men Type: BLOOD SPECIMEN Ordering Facility: [facility] Address: [address] [place] [address] Performed By: #### B HB, #### [facility] CLIA [id number] [address] [place] [address] [place] Clarity (Unsp spec) Turbid Abnormal Clear [facility] Comment on above: Order Comment: Speci men Type: BLOOD SPECIMEN Ordering Facility: [facility] Address: [address] [place] [address] Performed By: #### B HB, #### [facility] CLIA [id number] [address] [place] [address] [place] Color (U) Light Yellow Normal Yellow [facility] Comment on above: Order Comment: Speci men Type: BLOOD SPECIMEN Ordering Facility: [facility] Address: [address] [place] [address] Performed By: #### B HB, #### [facility] CLIA [id number] [address] [place] [address] [place] Glucose Test strip (U) [Mass/Vol] 4+ Abnormal Trace, Negative [facility] Comment on above: Order Comment: Speci men Type: BLOOD SPECIMEN Ordering Facility: [facility] Address: [address] [place] [address] Performed By: #### B HB, #### [facility] CLIA [id number] [address] [place] [address] [place] Hemoglobin Ql (U) Trace Normal Negative, Trace [facility] Comment on above: Order Comment: Speci men Type: BLOOD SPECIMEN Ordering Facility: [facility] Address: [address] [place] [address] Performed By: #### B HB, #### [facility] CLIA [id number] [address] [place] [address] [place] Ketones Ql (U) Negative Normal Negative, Trace [facility] Comment on above: Order Comment: Speci men Type: BLOOD SPECIMEN Ordering Facility: [facility] Address: [address] [place] [address] Performed By: #### B HB, #### [facility] CLIA [id number] [address] [place] [address] [place] Leukocyte esterase Test strip Ql (U) 500 Liam/uL Abnormal Negative, 25 Liam/uL [facility] Comment on above: Order Comment: Speci men Type: BLOOD SPECIMEN Ordering Facility: [facility] Address: [address] [place] [address] Performed By: #### B HB, #### [facility] CLIA [id number] [address] [place] [address] [place] Nitrite Ql (U) Negative Normal Negative [facility] Comment on above: Order Comment: Speci men Type: BLOOD SPECIMEN Ordering Facility: [facility] Address: [address] [place] [address] Performed By: #### B HB, #### [facility] CLIA [id number] [address] [place] [address] [place] pH (U) 6.0 [pH] Normal 5.0-8.0 [facility] Comment on above: Order Comment: Speci men Type: BLOOD SPECIMEN Ordering Facility: [facility] Address: [address] [place] [address] Performed By: #### B HB, #### [facility] CLIA [id number] [address] [place] [address] [place] Protein (U) [Mass/Vol] 1+ Abnormal Trace, Negative [facility] Comment on above: Order Comment: Speci men Type: BLOOD SPECIMEN Ordering Facility: [facility] Address: [address] [place] [address] Performed By: #### B HB, #### [facility] CLIA [id number] [address] [place] [address] [place] RBC LM.HPF (Urine sed) [#/Area] 3-5 /HPF Abnormal 0-3 /HPF [facility] Comment on above: Order Comment: Speci men Type: BLOOD SPECIMEN Ordering Facility: [facility] Address: [address] [place] [address] Performed By: #### B HB, #### [facility] CLIA [id number] [address] [place] [address] [place] Specific gravity (U) [Rel density] 1.017 Normal 1.005-1.030 [facility] Comment on above: Order Comment: Speci men Type: BLOOD SPECIMEN Ordering Facility: [facility] Address: [address] [place] [address] Performed By: #### B HB, #### [facility] CLIA [id number] [address] [place] [address] [place] Urobilinogen Ql (U) Negative Normal Negative [facility] Comment on above: Order Comment: Speci men Type: BLOOD SPECIMEN Ordering Facility: [facility] Address: [address] [place] [address] Performed By: #### B HB, #### [facility] CLIA [id number] [address] [place] [address] [place] [place] WBC LM.HPF (Urine sed) [#/Area] /[HPF] Abnormal 0-5 /HPF [facility] Comment on above: Order Comment: Speci men Type: BLOOD SPECIMEN Ordering Facility: [facility] Address: [address] [place] [address] Performed By: #### B HB, #### [facility] CLIA [id number] [address] [place] [address] [place] XR CHEST 1V FRONTAL [...] Fatigue and malaise, Fatigue and malaise (accession [id number]), Osteomyelitis (accession [id number]) MQ: XC1_5 Comparison: CT 01/17/2021, radiograph 01/17/2021 [...] performed for increased sensitivity, as clinically warranted. 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 Rug Setter [place]: PSCKimberlyn Transcribe Date/Time: Aug 31 2023 4:46A Dictated by : TAURUS MORTON MD This examination was interpreted and the report reviewed and electronically signed by: TAURUS MORTON MD on Aug 31 2023 4:51AM EST [id number] Normal [facility] Benzodiazepines Screen Ql (U )on 08-09-2023 Benzodiazepines Ql (U) Negative Normal [facility] Comment on above: Result Comment: Lenny odiazepines screening cut off value = 200 ng/mL This report is intended for use in clinical monitoring or management of patients. Performed By: #### 1 4316-4 #### [facility] ([id number]) [address] [place] [address] [place] [address] CCL GENERIC ORDERon 08-09-20 23 TEST NAME UQNTPP URINE PAIN PA VEGA QUANT Normal [facility] Comment on above: Result Comment: Wesley ected on 08/09 AT 1743: Previously reported as UQNTPP Performed By: #### C GO #### [facility] ([id number]) [address] [place] [address], [place] [address] TEST RESULT See Below Normal [facility] Comment on above: Result Comment: NOTE TEST RESULT FLAG UNIT REF.RANGE ----- Specimen Validity Quality See below Specimen quality results within acceptable limits Specimen Validity Creatinine 31.8 mg/dL 20.0-300.0 Specimen Validity PH 5.4 4.5-8.0 Specimen Validity Specific Orion 1.006 1.003-1.035 Specimen Validity Oxidants <38 mg/L [...] carboxylic acid (THCA) is a metabolite of rqpkm-0-ofifvoemklqprmugkzoe which is the main active component of marijuana. Fentanyl, Urine <6 ng/mL <6 Buprenorphine, Ur <20 ng/mL <20 Methadone Urine <16 ng/mL <16 Methadone metabolite Urine <6 ng/mL <6 EDDP is a metabolite of methadone. Note See Below This test is for medical use only. This test was developed and its performance characteristics determined by [facility] [place] [facility] It has not been cleared or approved by the FDA. [facility] is regulated under CLIA as qualified to perform high-complexity testing. This test is used for clinical purposes. It should not be regarded as investigational or for research. URINE PAIN PANEL QUANT Test Performed By: [facility] [address] [place] [address] Master Yacht: Oswald Munguia III, M.D. CLIA #[id number] Performed By: #### C GO #### [facility] ([id number]) [address] [place] [address], [place] [address] Operative Reporton Operative Report [id number]#1.00T IFF Normal [facility] Pathology Noteon 08-07-2023 Pathology Note [id number]#1.00 TIFF Normal [facility] ED Note-Physicianon 06-29-20 ED Note-Physician [id number]#1.00T IFF Normal [facility] Patient Letter FTMCon 2022 Patient Letter FT (Inserted Image. Grecia ble to display) June 28, 2023 AISLINN WHEELER [address] [place] [id number] : 1960 Dear Aislinn, You missed your [...] regarding any future cancellations. Sincerely, [facility] [address] [place] [address], [place] [address] Pt called and RS'd. Normal [facility] Basic metabolic 2000 panelon 06-23-2023 Anion gap [Moles/Vol] 9 mmol/L Normal 9-18 [facility] Comment on above: Order Comment: Speci men Type: BLOOD SPECIMEN Ordering Facility: [facility] Address: [address] [place] [address] Performed By: #### B HB, #### [facility] CLIA [id number] [address] [place] [address] [place] Calcium [Mass/Vol] 7.3 mg/dL Low 8.5-10.2 [facility] Comment on above: Order Comment: Speci men Type: BLOOD SPECIMEN Ordering Facility: [facility] Address: [address] [place] [address] Performed By: #### B HB, #### [facility] CLIA [id number] [address] [place] [address] [place] Chloride [Moles/Vol] 110 mmol/L High 97-105 [facility] Comment on above: Order Comment: Speci men Type: BLOOD SPECIMEN Ordering Facility: [facility] Address: [address] [place] [address] Performed By: #### B HB, #### [facility] CLIA [id number] [address] [place] [address] [place] CO2 [Moles/Vol] 19 mmol/L Low 22-30 [facility] Comment on above: Order Comment: Speci men Type: BLOOD SPECIMEN Ordering Facility: [facility] Address: [address] [place] [address] Performed By: #### B HB, #### [facility] CLIA [id number] [address] [place] [address] [place] Creatinine [Mass/Vol] 1.39 mg/dL High 0.58-0.96 [facility] Comment on above: Order Comment: Speci men Type: BLOOD SPECIMEN Ordering Facility: [facility] Address: [address] [place] [address] Performed By: #### B HB, #### [facility] CLIA [id number] [address] [place] [address] [place] Creatinine and Glomerular filtration rate.predicted panel (S/P/Bld) 42 mL/min/1.73m??? Low >=60 [facility] Comment on above: Order Comment: Speci men Type: BLOOD SPECIMEN Ordering Facility: [facility] Address: [address] [place] [address] Result Comment: Donna mated Glomerular Filtration Rate [...] GFR. Performed By: #### B HB, #### [facility] CLIA [id number] [address] [place] [address] [place] Glucose [Mass/Vol] 157 mg/dL High 74-99 [facility] Comment on above: Order Comment: [place] Type: BLOOD SPECIMEN Ordering Facility: [facility] Address: [address] [place] [address] Result Comment: The [place] (ADA) [...] 2016.39(Suppl 1). Performed By: #### B HB, 09760-4 #### [facility] CLIA [id number] [address] [place] [address] [place] Potassium [Moles/Vol] 5.1 mmol/L Normal 3.7-5.1 [facility] Comment on above: Order Comment: [place] Type: BLOOD SPECIMEN Ordering Facility: [facility] Address: [address] [place] [address] Performed By: #### B HB, 55149-6 #### [facility] CLIA [id number] [address] [place] [address] [place] Sodium [Moles/Vol] 138 mmol/L Normal 136-144 [facility] Comment on above: Order Comment: [place] Type: BLOOD SPECIMEN Ordering Facility: [facility] Address: [address] [place] [address] Performed By: #### B HB, 53796-2 #### [facility] CLIA [id number] [address] [place] [address] [place] Urea nitrogen [Mass/Vol] 21 mg/dL Normal 7-21 [facility] Comment on above: Order Comment: Speci men Type: BLOOD SPECIMEN Ordering Facility: [facility] Address: [address] [place] [address] Performed By: #### B HB, #### [facility] CLIA [id number] [address] [place] [address] [place] CBC panel Auto (Bld)on 06-23 Erythrocyte distribution width (RBC) [Ratio] 14.4 % Normal 11.5-15.0 [facility] Comment on above: Order Comment: Speci men Type: BLOOD SPECIMEN Ordering Facility: [facility] Address: [address] [place] [address] Performed By: #### B HB, #### [facility] CLIA [id number] [address] [place] [address] [place] Hematocrit (Bld) [Volume fraction] 28.5 % Low 36.0-46.0 [facility] Comment on above: Order Comment: Speci men Type: BLOOD SPECIMEN Ordering Facility: [facility] Address: [address] [place] [address] Performed By: #### B HB, #### [facility] CLIA [id number] [address] [place] [address] [place] Hemoglobin (Bld) [Mass/Vol] 9.0 g/dL Low 11.5-15.5 [facility] Comment on above: Order Comment: Speci men Type: BLOOD SPECIMEN Ordering Facility: [facility] Address: [address] [place] [address] Performed By: #### B HB, #### [facility] CLIA [id number] [address] [place] [address] [place] MCH (RBC) [Entitic mass] 25.2 pg Low 26.0-34.0 [facility] Comment on above: Order Comment: Speci men Type: BLOOD SPECIMEN Ordering Facility: [facility] Address: [address] [place] [address] Performed By: #### B HB, #### [facility] CLIA [id number] [address] [place] [address] [place] MCHC (RBC) [Mass/Vol] 31.6 g/dL Normal 30.5-36.0 [facility] Comment on above: Order Comment: Speci men Type: BLOOD SPECIMEN Ordering Facility: [facility] Address: [address] [place] [address] Performed By: #### B HB, #### [facility] CLIA [id number] [address] [place] [address] [place] MCV (RBC) [Entitic vol] 79.8 fL Low 80.0-100.0 [facility] Comment on above: Order Comment: Speci men Type: BLOOD SPECIMEN Ordering Facility: [facility] Address: [address] [place] [address] Performed By: #### B HB, #### [facility] CLIA [id number] [address] [place] [address] [place] Nucleated RBC (Bld) [#/Vol] 10*3/uL Normal <0.01 [facility] Comment on above: Order Comment: Speci men Type: BLOOD SPECIMEN Ordering Facility: [facility] Address: [address] [place] [address] Performed By: #### B HB, #### [facility] CLIA [id number] [address] [place] [address] [place] Platelet mean volume (Bld) [Entitic vol] 10.6 fL Normal 9.0-12.7 [facility] Comment on above: Order Comment: Speci men Type: BLOOD SPECIMEN Ordering Facility: [facility] Address: [address] [place] [address] Performed By: #### B HB, #### [facility] CLIA [id number] [address] [place] [address] [place] Platelets (Bld) [#/Vol] 251 10*3/uL Normal 150-400 [facility] Comment on above: Order Comment: Speci men Type: BLOOD SPECIMEN Ordering Facility: [facility] Address: [address] [place] [address] Performed By: #### B HB, 64313-0 #### [facility] CLIA [id number] [address] [place] [address] [place] RBC (Bld) [#/Vol] 3.57 10*6/uL Low 3.90-5.20 [facility] Comment on above: Order Comment: Speci men Type: BLOOD SPECIMEN Ordering Facility: [facility] Address: [address] [place] [address] Performed By: #### B HB, 19319-5 #### [facility] CLIA [id number] [address] [place] [address] [place] WBC (Bld) [#/Vol] 7.47 10*3/uL Normal 3.70-11.00 [facility] Comment on above: Order Comment: Speci men Type: BLOOD SPECIMEN Ordering Facility: [facility] Address: [address] [place] [address] Performed By: #### B HB, 92956-6 #### [facility] CLIA [id number] OF [facility] CNDSon 06-23-2023 CNDS HNO ID: [id number] Author: Annie Martinez APRN.PRICE CHANGER Service: Urology Author Type: Nurse Practitioner Type: [...] this patient's care. Taurus Ballard MD The [address] [address] or (361) [facility] C O N F I D E N T I A L I N F O R M A T I O N ------ STANDARD [facility] DOCUMENT DISCHARGE SUMMARY Patient Name: [...] Your Medications These medications were sent to [facility] [address] [place] [address] Hours: Monday-Monday: 7am-7pm, Sat: 9am-1pm acetaminophen 325 mg tablet docusate sodium 100 mg capsule Future Appointments: No future appointments. Electronically SIGNED by Licensed Independent Practitioner: Annie Martinez APRN.[facility] 06-23-2023 [facility] AISLINN WHEELER ([id number]) 1960 F Date Time Provider Department 06/23/23 HEIDY GARCIA During your visit today, we recorded the following information about you: Heidy Garcia RN 06/23/2023 9:05 AM Signed Patient had left robotic partial nephrectomy by Dr. Ballard on 06/22/2023 Will call for surgical follow up once discharged Heidy Garcia RN 06/26/2023 10:45 AM Signed Patient phone number non functioning. Active in [employer], will send message inquiring on how she's feeling post-operatively. Vonnie Wilder RN 06/27/2023 10:15 AM Signed Spoke with grand daughter, Lola, as this office is unable to reach patient for post op call. Lola reports, that patient's phone is turned off, and she does not know how to use [employer]. Lola reports that patient went to [place] ED due to excruciating pain -was given [...] Status:Closed by HEIDY GARCIA on 06/23/23 [facility] NURSING PROGon 06-23-2023 NURSING PROG HNO ID: [id number] Author: Sweta Cordova RN Service: ? Author [...] Martinez, awaiting PRN order of hydralazine. [facility] ANES POSTPROC EVALon 023 ANES POSTPROC EVAL HNO ID: [id number] Author: Rikki Jhaveri MD Service: Anesthesiology Author Type: Anesthesiologist Type: Anesthesia Postprocedure Evaluation Filed: 06/22/2023 2:18 PM Note Text: POST ANESTHESIA EVALUATION NOTE : 1960 Procedure Summary Date: 06/22/23 Room / Location: [place] [address]A / OR Anesthesia Start: 1107 Anesthesia Stop: [...] June 22, 2023 TIME: 2:18 PM CSN: [id number] [facility] ANES PRE-OPon 06-22-2023 ANES PRE-OP HNO ID: [id number] Author: Rikki Jhaveri MD Service: Anesthesiology Author [...] June 22, 2023 TIME: 9:54 AM CSN: [id number] Normal [facility] Basic metabolic 2000 panelon 06-22-2023 Anion gap [Moles/Vol] 7 mmol/L Low 9-18 [facility] Comment on above: Order Comment: Speci men Type: BLOOD SPECIMEN Ordering Facility: [facility] Address: [place] [address] Performed By: #### 2 4321-2 #### [facility] CLIA [id number] [address] [place] [address] [place] Calcium [Mass/Vol] 7.5 mg/dL Low 8.5-10.2 [facility] Comment on above: Order Comment: Speci men Type: BLOOD SPECIMEN Ordering Facility: [facility] Address: [address] [place] [address] Performed By: #### 2 4321-2 #### [facility] CLIA [id number] [address] [place] [address] [place] Chloride [Moles/Vol] 108 mmol/L High 97-105 [facility] Comment on above: Order Comment: Speci men Type: BLOOD SPECIMEN Ordering Facility: [facility] Address: [address] [place] [address] Performed By: #### 2 4321-2 #### [facility] CLIA [id number] [address] [place] [address] [place] CO2 [Moles/Vol] 19 mmol/L Low 22-30 [facility] Comment on above: Order Comment: Speci men Type: BLOOD SPECIMEN Ordering Facility: [facility] Address: [address] [place] [address] Performed By: #### 2 4321-2 #### [facility] CLIA [id number] [address] [place] [address] [place] Creatinine [Mass/Vol] 1.57 mg/dL High 0.58-0.96 [facility] Comment on above: Order Comment: Speci men Type: BLOOD SPECIMEN Ordering Facility: [facility] Address: [address] [place] [address] Performed By: #### 2 4321-2 #### [facility] CLIA [id number] [address] [place] [address] [place] Creatinine and Glomerular filtration rate.predicted panel (S/P/Bld) 36 mL/min/1.73m??? Low >=60 [facility] Comment on above: Order Comment: Speci men Type: BLOOD SPECIMEN Ordering Facility: [facility] Address: [address] [place] [address] Result Comment: Donna mated Glomerular Filtration Rate [...] GFR. Performed By: #### 2 4321-2 #### [facility] CLIA [id number] [place] [address] [place] Glucose [Mass/Vol] 275 mg/dL High 74-99 [facility] Comment on above: Order Comment: [place] Type: BLOOD SPECIMEN Ordering Facility: [facility] Address: [address] [place] [address] Result Comment: The [place] (ADA) [...] 1). Performed By: #### 2 4321-2 #### [facility] CLIA [id number] [address] [place] [address] [place] Potassium [Moles/Vol] 5.3 mmol/L High 3.7-5.1 [facility] Comment on above: Order Comment: [place] Type: BLOOD SPECIMEN Ordering Facility: [facility] Address: [address] [place] [address] Performed By: #### 2 4321-2 #### [facility] CLIA [id number] [address] [place] [address] [place] Sodium [Moles/Vol] 134 mmol/L Low 136-144 [facility] Comment on above: Order Comment: [place] Type: BLOOD SPECIMEN Ordering Facility: [facility] Address: [address] [place] [address] Performed By: #### 2 4321-2 #### [facility] CLIA [id number] [place] [address] [place] Urea nitrogen [Mass/Vol] 26 mg/dL High 7-21 [facility] Comment on above: Order Comment: Speci men Type: BLOOD SPECIMEN Ordering Facility: [facility] Address: [address] [place] [address] Performed By: #### 2 4321-2 #### [facility] CLIA [id number] [address] [place] [address] [place] CBC panel Auto (Bld)on 06-22 Erythrocyte distribution width (RBC) [Ratio] 14.3 % Normal 11.5-15.0 [facility] Comment on above: Order Comment: Speci men Type: BLOOD SPECIMEN Ordering Facility: [facility] Address: [address] [place] [address] Performed By: #### 5 8410-2 #### [facility] CLIA [id number] [address] [place] [address] [place] Hematocrit (Bld) [Volume fraction] 27.8 % Low 36.0-46.0 [facility] Comment on above: Order Comment: Speci men Type: BLOOD SPECIMEN Ordering Facility: [facility] Address: [address] [place] [address] Performed By: #### 5 8410-2 #### [facility] CLIA [id number] [address] [place] [address] [place] Hemoglobin (Bld) [Mass/Vol] 8.9 g/dL Low 11.5-15.5 [facility] Comment on above: Order Comment: Speci men Type: BLOOD SPECIMEN Ordering Facility: [facility] Address: [address] [place] [address] Performed By: #### 5 8410-2 #### [facility] CLIA [id number] [address] [place] [address] [place] MCH (RBC) [Entitic mass] 25.3 pg Low 26.0-34.0 [facility] Comment on above: Order Comment: Speci men Type: BLOOD SPECIMEN Ordering Facility: [facility] Address: [address] [place] [address] Performed By: #### 5 8410-2 #### [facility] CLIA [id number] [address] [place] [address] [place] MCHC (RBC) [Mass/Vol] 32.0 g/dL Normal 30.5-36.0 [facility] Comment on above: Order Comment: Speci men Type: BLOOD SPECIMEN Ordering Facility: [facility] Address: [address] [place] [address] Performed By: #### 5 8410-2 #### [facility] CLIA [id number] [address] [place] [address] [place] MCV (RBC) [Entitic vol] 79.0 fL Low 80.0-100.0 [facility] Comment on above: Order Comment: Speci men Type: BLOOD SPECIMEN Ordering Facility: [facility] Address: [address] [place] [address] Performed By: #### 5 8410-2 #### [facility] CLIA [id number] [address] [place] [address] [place] Nucleated RBC (Bld) [#/Vol] 10*3/uL Normal <0.01 [facility] Comment on above: Order Comment: Speci men Type: BLOOD SPECIMEN Ordering Facility: [facility] Address: [address] [place] [address] Performed By: #### 5 8410-2 #### [facility] CLIA [id number] [address] [place] [address] [place] Platelet mean volume (Bld) [Entitic vol] 10.8 fL Normal 9.0-12.7 [facility] Comment on above: Order Comment: Speci men Type: BLOOD SPECIMEN Ordering Facility: [facility] Address: [address] [place] [address] Performed By: #### 5 8410-2 #### [facility] CLIA [id number] [address] [place] [address] [place] Platelets (Bld) [#/Vol] 230 10*3/uL Normal 150-400 [facility] Comment on above: Order Comment: Speci men Type: BLOOD SPECIMEN Ordering Facility: [facility] Address: [address] [place] [address] Performed By: #### 5 8410-2 #### [facility] CLIA [id number] [address] [place] [address] [place] RBC (Bld) [#/Vol] 3.52 10*6/uL Low 3.90-5.20 [facility] Comment on above: Order Comment: Speci men Type: BLOOD SPECIMEN Ordering Facility: [facility] Address: [address] [place] [address] Performed By: #### 5 8410-2 #### [facility] CLIA [id number] [address] [place] [address] [facility] [place] WBC (Bld) [#/Vol] 6.04 10*3/uL Normal 3.70-11.00 [facility] Comment on above: Order Comment: Speci men Type: BLOOD SPECIMEN Ordering Facility: [facility] Address: [address] [place] [address] Performed By: #### 5 8410-2 #### [facility] CLIA [id number] [address] [place] [address] NURSING PROGon 06-22-2023 NURSING PROG HNO ID: [id number] Author: Afia Lanier RN Service: Nursing Author Type: Registered Nurse Type: Nursing Progress Note Filed: 06/22/2023 5:56 PM Note Text: Transfer Note: PATIENT NAME: Aislinn Wheeler Patient Location: [place] [address] Room: [place] [address] Patient transferred into room/unit [id number] in stable condition. Actions taken: No futher actions taken at this time. Will continue to monitor and check with patient. Normal [facility] NURSING PROG HNO ID: [id number] Author: Linda Nicholson, REY Service: Nursing Author Type: Registered Nurse Type: Nursing Progress Note Filed: 06/22/2023 12:20 PM Note Text: pre-incision juan area noted to have redness and inflamed, prior to prepping and putting chaves in. Normal [facility] NURSING PROG HNO ID: [id number] Author: Elva Joy RN Service: Nursing Author [...] None Electronically Signed By: Elva Joy [facility] OPERATIVE NOon 06-22-2023 OPERATIVE NO HNO ID: [id number] Author: Taurus Ballard MD Service: Urology Author Type: Physician Type: Operative Report Filed: 06/22/2023 1:48 PM Note Text: OPERATIVE/PROCEDURE REPORT LOG ID: [id number] Surgery/Procedure Date: 06/22/2023 Incision/Procedure Start Time: 11:49 AM Incision Close/Procedure End Time: 1:55 PM Surgeon(s)/Proceduralis t(s) and It Data Architect(s): Surgeon(s) and Role: * Taurus Ballard MD - Primary * Jeet De La Fuente MD - Resident - Assisting Physician It Data Architect: Camden Rios PA-C; Alicia Harmon PA-C Procedure(s): [...] superior to the umbilicus a 12 mm quality assurance assistant port was placed. At this point [...] a specimen bag out of the supraumbilical quality assurance assistant port. This port was closed with [...] None Drains: 10 flat JUAN drain, 16 [place] Chaves catheter Complications: None Accidental Punctures/Lacerations: None I/primary surgeon/proceduralist performed the procedure with assistance. SIGNATURE: Taurus Ballard MD PATIENT NAME: Aislinn Wheeler DATE: June 22, 2023 TIME: 1:42 PM PAGER/CONTACT #: [facility] SURGICAL PATHOLOGYon 023 CASE REPORT [facility] Comment on above: Order Comment: Speci men Type: BLOOD SPECIMEN Ordering Facility: [facility] Address: [address] [place] [address] Result Comment: Surg ical Pathology Report Case: [id number] Authorizing Provider: Taurus Ballard MD Collected: 06/22/2023 01:38 PM Ordering Location: [facility] Received: 06/22/2023 03:16 PM Operating Room Pathologist: Barron Cheema MD Specimen: KIDNEY PARTIAL NEPHRECTOMY LEFT, left renal neoplasm Performed By: #### Kimberlyn FISCHER, 87345-3 #### [facility] CLIA [id number] [address] [place] [address] CLINICAL HISTORY [facility] Comment on above: Order Comment: Speci men Type: BLOOD SPECIMEN Ordering Facility: [facility] Address: [address] [place] [address] Result Comment: Pre- op diagnosis: 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 - 7.2 cm gross greatest dimension of tissue specimen (defer to clinical/imaging for overall lesion size). Performed By: #### [place], [address]-2 #### [facility] CLIA [id number] [address] [place] [address] FINAL PERFORMING LAB [facility] Comment on above: Order Comment: Speci men Type: BLOOD SPECIMEN Ordering Facility: [facility] Address: [address] [place] [address] Result Comment: Diag nostic interpretation performed at [facility], [address] [address] CLIA# [id number] Master Yacht: Oswald Munguia M.D. Performed By: #### [place], 30050-7 #### [facility] CLIA [id number] [address] [place] [address] GROSS DESCRIPTION Normal [facility] Comment on above: Order Comment: Speci men Type: BLOOD SPECIMEN Ordering Facility: [facility] Address: [address] [place] [address] Result Comment: Emre MCGRATH PARTIAL NEPHRECTOMY LEFT Received in formalin designated left renal neoplasm is a segment of chilel-purple membranous tissue which weighs 39 g and measures 7.2 x 5.5 x 3.5 cm. There is cautery present at the margin which is inked orange. The surfaces are smooth with no masses or papillations grossly appreciated. Sectioning does not reveal any masses. Room Service Waiter sections are submitted in 5 cassettes. BF June 23, 2023 9:00 AM Gross examination performed at [facility], [address] [place] [address] CLIA # [id number] Performed By: #### B , 67619-7 #### [facility] CLIA [id number] [address] 06-15-2023 CNPN [facility]phone [facility] AISLINN WHEELER ([id number]) 1960 F Date Time Provider Department 06/15/23 [facility] During your visit today, we recorded the [...] Status:Closed by VONNIE WILDER on 06/15/23 [facility] Kamilah 06-12-2023 CNPRandall Telephone ([facility]) AISLINN WHEELER ([id number]) 1960 F Date Time Provider Department 06/12/23 [facility] During your visit today, we recorded the following information about you: Liliana Velasco RN 06/12/2023 8:56 AM Signed Received call from RN at Dr. Sara Augustine ([phone]) office (endocrinology) regarding clearance for upcoming surgery on 06/22/23 Pt saw physician on 06/08/23 and medications were changed. Pt will follow up with them on 06/20/[address] Augustine does not do surgical clearance - she only manages the patient's diabetes. He will fax over office notes to be reviewed. Derik Fernandez 06/12/2023 9:36 AM Signed Office Notes on 06/08/23 with Sara sánchez CNP received and scanned into Itiva to view. Allergies As of Date: 06/12/2023 [...] Status:Closed by LILIANA VELASCO on 06/12/23 [facility] C Urineon 06-10-2023 Bacteria identified [...] Locations R1: This test was performed at: [facility], [address] [place] [address], [address]- , , [facility] Comment on above: Performed By: #### 2 [id number] #### [facility] [address] [place] [address] [facility] 06-09-2023 [facility] Telephone (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 on 06/08 for clearance for her surgery on 06/22 Left message with office of Sara Augustine ([phone]) where patient's appointment was scheduled asking for [...] Status:Closed by DERIK FERNANDEZ on 06/09/23 [facility] Glucose - FINGER STICKon Glucose [Mass/Vol] 436 mg/dL [employer] Other Consent for Procedure/Surger yon 05-22-2023 Consent for Procedure/Surgery [id number]#1.0 0CD:127 Normal [facility] Consent for Treatmenton Consent for Treatment [id number]#1.00C D:127 Normal [facility] Inpatient Patient Summaryon 05-22-2023 Inpatient Patient Summary [place] [id number] Clinical Summary Person Information Name: AISLINN WHEELER Age: 63 Years : 1960 Sex: Female PCP: AGUSTO OLMSTEAD CNP Marital Status: Race: White Ethnicity: Non- or Language: Tajik Visit Id: Visit Reason: MIXED URINARY INCONTINENCE Speciality: Acuity: Enc Type: Outpatient Med Service: Surgery Arrival: 05/22/2023 09:41:57 Discharge: Dispo Type: Address: [place] [facility] [id number] Provider Notes: Diagnosis: Feeling of incomplete bladder [...] When: Lisa Porras [address], [place] [address] [phone] Business (1) [address], [place] [address], [place] [phone] Business (1) Comments: Office to schedule follow up in 1 month with PVR Patient Education Information: EU - Cystoscopy with Botox Injection Discharge Instructions (CUSTOM) [facility] IntraOperative Documentson 1 IntraOperative Documents [id number]#1.0 0CD:127 Normal [facility] Main OR Intraoperative Recor don 05-22-2023 Main OR Intraoperative Record IntraOp Document Type FTURO Summary Primary Physician: Lisa Porras MD Finalized Date/Time: 05/22/23 11:29:32 Pt. Name: LIAMAISLINN D.O.B./Sex: 1960 Female Med Rec #: [id number] Physician: Lisa Porras MD Financial #: [id number] Pt. Type: O Room/Bed: / Admit/Disch: 05/22/23 09:41:57 - Institution: Case Times FTURO Entry 1 Patient Times In Room 05/22/23 11:15:00 Out Room 05/22/23 11:30:00 Procedure Times Start 05/22/23 11:22:00 Stop 05/22/23 11:26:00 Anesthesia Times Last Modified By: Katya LE, Marilee Feldman 05/22/23 11:26:29 General Comments: BOTOX 100 UNITS LOT#: [id number] , EXP DATE: 09/2025 -Jessica BLANCO RN Case Attendance FTURO Entry 1 Entry 2 Entry 3 Case Attendee Vern TAVERAS, Lisa Blanco RN, Marilee Solano CST, Cammie Feldman Role Performed Surgeon - Primary Doctor Of Nursing Practice - Primary Scrub - Primary Time In [...] Participants Marilee Blanco RN Applicable) Xiomara Cagle DIRECTOR CLINICAL INFORMATION SERVICES, Cammie Shoemaker Time Out Complete 05/22/23 11:22:00 [...] By: Marilee Blanco RN 05/22/23 11:29 Normal [facility] Main OR Preoperative Recordo n 05-22-2023 Main OR Preoperative Record Holding Area Document Type FTURO Summary Primary Physician: Lisa Porras MD Finalized Date/Time: 05/22/23 10:32:24 Pt. Name: AISLINN WHEELER/Sex: 1960 Female Med Rec #: [id number] Physician: Lisa Porras MD Financial #: [id number] Pt. Type: O Room/Bed: / Admit/Disch: 05/22/23 [...] By: Cammie Mcpherson RN 05/22/23 10:32 Normal [facility] Operative Reporton 3 Operative Report Patient: BARBARA WHEELER Age: 63 years Sex: Female : 1960 Associated Diagnoses: None Author: Lisa Porras MD Procedure Operative Information Details: Date/ Time: 05/22/2023 11:29:00. Pre-Op Dx: Feeling of incomplete bladder emptying (KSP53-ZS R39.14, Discharge, Medical), Mixed incontinence (LQD94-FD N39.46, Discharge, Medical), Urinary leakage (WMO45-CL R32, Discharge, Medical). Post-Op Dx: Same. Anesthesia [...] to [facility] in the remote past). Normal [facility] Comment on above: Result Comment: Elec tronically Signed By: Lisa Porras MD.\.br\Date and Time Signed: 05/22/23 11:30 EDT Outpatient Surgery Discharge Instructionon 05-22-2023 Outpatient Surgery Discharge Instruction [place] [id number] Patient Discharge Instructions PERSON INFORMATION Name: AISLINN [...] Follow up: With: Address: When: Lisa Porras [address] [place] [phone] Business (1) [address] [place] [address] [place], [place] [phone] Business (1) Comments: Office to schedule follow [...] you have a fever over 100 degrees. ILIAM DONNA M, have received the attached patient [...] to serve you. Thank you for choosing [facility] Normal [facility] Consultation Noteon 05-19-20 Consultation Note [id number] D:127 Normal [facility] A1C HEMOGLOBINon 05-18-2023 HbA1c (Bld) [Mass fraction] 14.0 % [employer] Other [facility] 05-18-2023 [facility] Telephone ([facility]) AISLINN WHEELER ([id number]) 1960 F Date Time Provider Department 05/18/23 TAURUS BALLARDAbel During your visit today, we recorded the following information about you: Agusto Faulkner 05/18/2023 1:01 PM Signed Consult notes sent back to Dr. Lisa Porras , phone [phone]. From Dr. Ballard office. Allergies As of [...] Status:Closed by DERIK FERNANDEZ on 06/09/23 [facility] Glucose - FINGER STICKon Glucose [Mass/Vol] 429 mg/dL [employer] Other HbA1c (Bld) [Mass fraction]o n 05-18-2023 A1C HEMOGLOBIN [facility] Other [facility]OV[facility] 05-17-2023 CNOV Office Visit ([facility]) AISLINN WHEELER ([id number]) 1960 F Date Time Provider Department 05/17/23 1:10 PM [facility] BALLARD [facility] During your visit today, we recorded the following information about you: Temperature Pulse Blood pressure Weight 97.5 degrees 70/minute 172/81 60.1 kg Taurus Ballard MD 05/17/2023 1:35 PM Signed [facility] FOLLOW-UP PATIENT HISTORY AND [...] 1.92 01/19/[address] scan (outside records) [facility] 09/28/21 IMPRESSION: Since the prior CT scan [...] hysterectomy. Reviewed most recent imaging. US on 1/23/23 showed a 8.7 x 8.2x 7.1 cystic [...] other structures) (more content not included)... Normal [facility] C Urineon 05-13-2023 Bacteria identified [...] Locations R1: This test was performed at: [facility], [address] [place] [address], [address]- , , [facility] Comment on above: Performed By: #### 2 [id number] #### [facility] [address] [place] [address] Physician Referralon 023 Physician Referral [id number]#1.00CD :127 PATIENT IS SCHEDULED 05/17/2023 [facility] Consultation Noteon 05-04-20 23 Consultation Note [id number]#1.00CD :127 [facility] Insurance Correspondenceon 0 05-04-2023 Insurance Correspondence [id number]#1.00 CD:127 [facility] Urology Office/Clinic Noteon 05-04-2023 Urology Office/Clinic [...] mass on Kidney was not cancerous. However line crewman told her she has kidney cancer. Denies [...] PSH lap cholecystectomy, open hysterectomy -Continues with line crewman for CKD3 1. Renal cyst (N28.1: Cyst [...] pt to tertiary center, Dr. Ballard at [facility] for evaluation of robotic left cyst decortication -Pt states line crewman told her she has cancer. 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 Ordered: 47689 Measure Post Void residual urine and/or bladder capacity by US- non-imaging Urnls Dip Stick Auto w/o Microscopy POC 54268 2. Mixed incontinence (N39.46: Mixed incontinence) Pt [...] of Botox. (more content not included)... Normal [facility] Comment on above: Result Comment: Elec tronically Signed By: Vern TAVERAS, Lisa Montiel\.br\Date and Time Signed: 05/04/23 14:11 EDT Ambulatory Visit Summaryon 0 05-03-2023 Ambulatory Visit Summary LIAMBARBARA PAEZPAMELA Pulido :1960 Visit Date:05/03/2023 Ambulatory Visit Instructions Your Diagnosis Renal mass Renal cyst Mixed incontinence Feeling of incomplete bladder emptying Glucosuria Tests Performed Urnls Dip Stick Auto w/o Microscopy POC 50312 Your Care Team Attending Physician - Lisa [...] one day prior to procedure Pickup at [facility] New estradiol topical (Estrace 0.1 mg/ g Cream) See instructions Refills: 3 apply pea size amount to urethra/ inner vagina 3x/ week x 1 month, then 2x/ week for maintainence Pickup at [facility] Unchanged trospium (trospium 20 mg oral [...] physician if questions or concerns Pharmacy Information [facility]: [address], [place] [id number] [phone] Test Results Urnls Dip Stick Auto w/o Microscopy POC 67200 (05/03/2023) Bilirubin Urine Dipstick - Negative Blood Urine Dipstick - Trace-intact Glucose Urine Dipstick - 3+ 1000 mg/dl Ketones Urine Dipstick - Negative Leukocytes Urine Dipstick - Negative Nitrite Urine Dipstick - Negative Protein Urine Dipstick - Trace Specific Orion Urine Dipstick - 1.015 Urine Appearance Urine [...] are saf (more content not included)... Normal [facility] Patient Educationon 05-03-20 Patient Education Obstetrics and [...] provider. Document Revised: 12/16/2021 Document Reviewed: 12/16/2021 [employer] Patient Education ? 2022 [employer] Normal [facility] 05-03-2023 Screens [id number] CD:127 Normal [facility] C Urineon 04-20-2023 Bacteria identified Cx Nom [...] Locations R1: This test was performed at: [facility], [address] [place] [address], [address] , , [facility] Comment on above: Performed By: #### 2 109258 ####[facility] [address] [place] [address] Ambulatory Visit Summaryon 0 04-18-2023 Ambulatory Visit [...] Lisa Porras MD Where: [facility] 02-23-2023 Screens [id number] CD:127 [facility] Ambulatory Visit Summaryon 0 02-22-2023 Ambulatory Visit Summary AISLINN WHEELER :1960 Visit Date:02/22/2023 Ambulatory Visit Instructions Your Diagnosis Renal mass Renal cyst Mixed incontinence Feeling of incomplete bladder emptying Glucosuria Tests Performed Urnls Dip Stick Auto w/o Microscopy POC 11393 Your Care Team Attending Physician - Lisa [...] TAVERAS, Lisa Montiel Where: [facility] Patient Educationon 02-23-20 Patient Education [...] provider. Document Revised: 12/16/2021 Document Reviewed: 12/16/2021 [employer] Patient Education ? 2022 [employer]. [facility] Urology Office/Clinic Noteon 02-22-2023 Urology Office/Clinic [...] PSH lap cholecystectomy, open hysterectomy -Continues with line crewman after referred last visit 1. Renal mass [...] 07/06/22: Crea 2.01. eGFR 25. (During sepis/osteomyelitis) 12/14/22: Crea 1.36 eGFR 36. CONNOR done 09/15/22 [...] and the (more content not included)... Normal [facility] Comment on above: Result Comment: Elec tronically Signed By: Lisa Porras MD.bia\Date and Time Signed: 02/22/23 10:14 EDT\.br\Electronically Co-Signed By: Marilee Gray.br\Date and Time Co-Signed: 02/22/23 09:36 EDT Lab Reportson 02-20-2023 Lab Reports [id number] D:127 Normal [facility] RAD - CT Reporton 02-20-2023 RAD - CT Report [id number]#1.00CD :127 Normal [facility] Physician Orderon 02-01-2023 Physician Order [id number]#1.00CD :127 Normal [facility] Consultation Noteon 01-08-20 Consultation Note [id number] D:127 Normal [facility] XR FOOT LT MIN 3 VIEWSon XR FOOT LT MIN 3 VIEWS Normal [facility] MG MAMM SCREEN 3D GURJIT CADon 12-28-2022 MG MAMM SCREEN 3D GURJIT CAD Normal [facility] XR DEXA BONE DENSITYon 12-28 XR DEXA BONE DENSITY Normal [facility] NM STRESS/REST MULTIon 12-15 NM STRESS/REST MULTI Normal [facility] XR FOOT LT MIN 3 VIEWSon XR FOOT LT MIN 3 VIEWS Normal [facility] Physician Referralon 023 Physician Referral [id number] D:127 Normal [facility] CT FOOT LT WO CONon 10-28-19 CT FOOT LT WO CON Normal [facility] XR FOOT LT MIN 3 VIEWSon XR FOOT LT MIN 3 VIEWS Normal [facility] XR FOOT LT MIN 3 VIEWSon XR FOOT LT MIN 3 VIEWS Normal [facility] XR FOOT LT MIN 3 VIEWSon XR FOOT LT MIN 3 VIEWS Normal [facility] XR FOOT LT MIN 3 VIEWSon XR FOOT LT MIN 3 VIEWS Normal [facility] XR FOOT LT MIN 3 VIEWSon XR FOOT LT MIN 3 VIEWS Normal [facility] US KIDNEYSon 09-15-2022 US KIDNEYS Normal [facility] XR FOOT LT MIN 3 VIEWSon XR FOOT LT MIN 3 VIEWS Normal [facility] XR FOOT LT MIN 3 VIEWSon XR FOOT LT MIN 3 VIEWS Normal [facility] XR FOOT LT MIN 3 VIEWSon XR FOOT LT MIN 3 VIEWS Normal [facility] CBC AUTO DIFFon 08-03-2022 BASO # 0.0 103/ul Normal 0.0-0.1 [facility] Comment on above: Performed By: #### C BC ####[facility] [address] [place] [address]Dr. Ricardo Rocha Basophils/100 WBC (Bld) 0.5 % Normal 0.2-2.0 [facility] Comment on above: Performed By: #### C BC ####[facility] [address] [place], [place] [address]Dr. Ricardo Rocha EO # 0.1 103/ul Normal 0.0-0.7 [facility] Comment on above: Performed By: #### C BC ####[facility] [address] [place], [place] [address]Dr. Ricardo Rocha Eosinophils/100 WBC (Bld) 1.2 % Normal 0.9-7.0 [facility] Comment on above: Performed By: #### C BC ####[facility] [address] [place], [place] [address]Dr. Ricardo Rocha Erythrocyte distribution width (RBC) [Ratio] 15.0 % Normal 11.0-15.0 [facility] Comment on above: Performed By: #### C BC ####[facility] [address] [place], [place] [address]Dr. Ricardo Rocha Hematocrit (Bld) [Volume fraction] 29.5 % Critically low 36.0-48.0 [facility] Comment on above: Performed By: #### C BC ####[facility] [address] [place], [place] [address]Dr. Ricardo Rocha Hemoglobin (Bld) [Mass/Vol] 9.3 g/dL Critically low 12.0-16.0 [facility] Comment on above: Performed By: #### C BC ####[facility] [address] [place] [address]Dr. Ricardo Rocha IG # 0.04 10e3/ul Critically high 0.00-0.03 [facility] Comment on above: Performed By: #### C BC ####[facility] [address] [place] [address]Dr. Ricardo Rocha IG % 0.5 % Normal 0.0-0.5 [facility] Comment on above: Performed By: #### C BC ####[facility] [address] [place] [address]Dr. Ricardo Rocha LYMPH # 1.4 103/ul Normal 1.2-3.8 [facility] Comment on above: Performed By: #### C BC ####[facility] [address] [place] [address]Dr. Ricardo Rocha Lymphocytes/100 WBC (Bld) 17.2 % Critically low 20.5-60.0 [facility] Comment on above: Performed By: #### C BC ####[facility] [address] [place] [address]Dr. Ricardo Rocha MANUAL DIFF REQ NO Normal [facility] Comment on above: Performed By: #### C BC ####[facility] [address] [place] [address]Dr. Ricardo Rocha MCH (RBC) [Entitic mass] 25.2 pg Critically low 26.7-34.0 [facility] Comment on above: Performed By: #### C BC ####[facility] [address] [place] [address]Dr. Ricardo Rocha MCHC (RBC) [Mass/Vol] 31.5 g/dL Normal 29.9-35.2 [facility] Comment on above: Performed By: #### C BC ####[facility] [address] [place] [address]Dr. Ricardo Rocha MCV (RBC) [Entitic vol] 79.9 fL Critically low 81.0-99.0 [facility] Comment on above: Performed By: #### C BC ####[facility] [address] [place] [address]Dr. Ricardo Rocha MONO # 0.6 103/ul Normal 0.3-0.8 [facility] Comment on above: Performed By: #### C BC ####[facility] [address] [place] [address]Dr. Ricardo Rocha Monocytes/100 WBC (Bld) 7.6 % Normal 1.7-12.0 [facility] Comment on above: Performed By: #### C BC ####[facility] [address] [place] [address]Dr. Ricardo Rocha NEUT # 5.9 103/ul Normal 1.4-6.5 [facility] Comment on above: Performed By: #### C BC ####[facility] [address] [place] [address]Dr. Ricardo Rocha Neutrophils/100 WBC (Bld) 73.0 % Normal 43.0-75.0 [facility] Comment on above: Performed By: #### C BC ####[facility] Tuugmrpohu[address] [place] [id number]. Ricardo Rocha Platelet mean volume (Bld) [Entitic vol] 11.4 fL Normal 9.5-13.5 [facility] Comment on above: Performed By: #### C BC ####[facility] Ngbmhxzkbm4993 [place] [id number]. Ricardo Rocha PLT 253 103/ul Normal 150-450 [facility] Comment on above: Performed By: #### C BC ####[facility] Iozqclsvbz9294 [place] [id number]. Ricardo Rocha RBC 3.69 106/ul Critically low 4.20-5.40 [facility] Comment on above: Performed By: #### C BC ####[facility] Kxjgbmrebp6147 [place] [id number]. Ricardo Rocha WBC 8.0 103/ul Normal 4.0-11.0 [facility] Comment on above: Performed By: #### C BC ####[facility] Ojbiupjvyq[address] [place] [address]Dr. Ricardo Rocha CRPon 08-03-2022 CRP 3.1 mg/dL Critically high <=1.0 [facility] Comment on above: Performed By: #### C RP, BMP, URIC ####[facility] [address]aihequvfd[address] [place] [address]Dr. Ricardo Rocha CULTURE BLOODon 08-03-2022 Microscopic examination of blood, culture Culture Observations: NO GROWTH AT 5 DAYS. Normal [facility] Comment on above: Performed By: #### B LDCX2 ####[facility] Xlhwmghggw[address] [place], [place] [address]Dr. Ricardo Rocha Microscopic examination of blood, culture Culture Observations: NO GROWTH AT 5 DAYS. Normal [facility] Comment on above: Performed By: #### B LDCX1 ####[facility] Ljrfdpgwyg[address] [place], [place] [address]Dr. Ricardo Rocha ER URINE PROFILEon 2 Bilirubin Ql (U) Negative Normal NEGATIVE [facility] Comment on above: Performed By: #### E RUR ####[facility] Qdoefxgifq423[address] [place], [place] [address]Dr. Ricardo Aj Clarity (U) CLEAR Normal CLEAR [facility] Comment on above: Performed By: #### E RUR ####[facility] Xlbpxdpbhl5340 [place] [address]Dr. Nanomarcial Aj Color (U) LT. YELLOW Normal YELLOW [facility] Comment on above: Performed By: #### E RUR ####[facility] Rsjqfuocix[address] [place], [place] [address]Dr. Ricardo Rocha ERUAHD A micrscopic examination will be performed if indicated. Normal [facility] Comment on above: Performed By: #### E RUR ####[facility] Hhliqehgnu[address] [place], [place] [address]Dr. Ricardo Rocha Glucose Ql (U) 100 mg/dl Abnormal NEGATIVE [facility] Comment on above: Performed By: #### E RUR ####[facility] Wktywuqwjw75[address] [place] [address]Dr. Ricardo Rocha Hemoglobin Ql (U) Negative Normal NEGATIVE [facility] Comment on above: Performed By: #### E RUR ####[facility] Njlqeltras46[address] [place], [place] [address]Dr. Ricardo Rocha Ketones Ql (U) Negative Normal NEGATIVE [facility] Comment on above: Performed By: #### E RUR ####[facility] Gjfgroztgg[address] [place], [place] [address]Dr. Ricardo Rocha LEUKOCYTES Negative Normal NEGATIVE [facility] Comment on above: Performed By: #### E RUR ####[facility] Mkivlshxiu2839[address] [place], [place] [address]Dr. Ricardo Rocha Nitrite Ql (U) Negative Normal NEGATIVE [facility] Comment on above: Performed By: #### E RUR ####[facility] Iborysnrvx3049[address] [place], [place] [address]Dr. Ricardo Rocha pH (U) 6.0 [pH] Normal 5-9 [facility] Comment on above: Performed By: #### E RUR ####[facility] Juwgdtjnyk6767[address] [place], [place] [address]Dr. Ricardo Rocha SPEC GRAVITY 1.010 Normal 1.005-<=1.02 5 [facility] Comment on above: Performed By: #### E RUR ####[facility] Jckyfudiyb[address] [place], [place] [address]Dr. Ricardo Rocha UA PROTEIN Negative Normal NEGATIVE/ TRACE [facility] Comment on above: Performed By: #### E RUR ####[facility] Oavmffrtcy236[address] [place], [place] [address]Dr. Nanomarcial Rocha UR MICRO IND NOT INDICATED Normal [facility] Comment on above: Performed By: #### E RUR ####[facility] Dawyuyauvp3840[address] [place], [place] [address]Dr. Ricardo Rocha Urobilinogen Qn (U) 0.2 {Madeleine'U}/dL Normal 0.2 - 1. 0 [facility] Comment on above: Performed By: #### E RUR ####[facility] Pkwphkwfqa[address] [place] [address]Dr. Ricardo Rocha LACTATE/LACTIC ACIDon 2021 Lactate [Moles/Vol] 0.5 mmol/L Normal 0.4-1.9 [facility] Comment on above: Performed By: #### L ACT ####[facility] Cmcikrzwox9079[address] [place], [place] [address]Dr. Ricardo Rocha PROF CHEM 8 (BAS METB)on Anion gap [Moles/Vol] 12.9 mmol/L Normal [facility] Comment on above: Performed By: #### C RP, BMP, URIC ####[facility] Wkvrfjbiah0738[address] [place], [place] [address]Dr. Ricardo Rocha Calcium [Mass/Vol] 9.0 mg/dL Normal 8.5-10.1 [facility] Comment on above: Performed By: #### C RP, BMP, URIC ####[facility] Rukejlrpnf10[address] [place], [place] [address]Dr. Ricardo Rocha Chloride [Moles/Vol] 102 mmol/L Normal 98-107 [facility] Comment on above: Performed By: #### C RP, BMP, URIC ####[facility] Azdaioemxt2816[address] [place], [place] [address]Dr. Ricardo Rocha CO2 [Moles/Vol] 23.9 mmol/L Normal 21.0-32.0 [facility] Comment on above: Performed By: #### C RP, BMP, URIC ####[facility] Avmbpbtltb833[address] [place], [place] [address]Dr. Ricardo Rocha Creatinine [Mass/Vol] 1.36 mg/dL Critically high 0.55-1.02 [facility] Comment on above: Performed By: #### C RP, BMP, URIC ####[facility] Ewkmocsfcy754[address] [place], [place] [address]Dr. Ricardo Rocha EGFR-AF CUBAN 47 mL/min/1.73m2 Critically low >=60 [facility] Comment on above: Performed By: #### C RP, BMP, URIC ####[facility] Qffhnexltr3203 [place] [id number]. Ricardo Rocha EGFR-NON AF CUBAN 39 mL/min/1.73m2 Critically low >=60 [facility] Comment on above: Performed By: #### C RP, BMP, URIC ####[facility] Ewvvnvasbr[address] [place] [phone]. Ricardo Rocha Glucose [Mass/Vol] 125 mg/dL Critically high 74-106 [facility] Comment on above: Performed By: #### C RP, BMP, URIC ####[facility] Tdortakjfb0800 [place] [phone]. Ricardo Rocha Potassium [Moles/Vol] 4.8 mmol/L Normal 3.5-5.1 [facility] Comment on above: Performed By: #### C RP, BMP, URIC ####[facility] Qxaocyeofb3[address] [place] [address]Dr. Ricardo Rocha Sodium [Moles/Vol] 134 mmol/L Critically low 136-145 [facility] Comment on above: Performed By: #### C RP, BMP, URIC ####[facility] Lombxwawma6[address] [place] [address]Dr. Ricardo Rocha Urea nitrogen [Mass/Vol] 22.0 mg/dL Critically high 7.0-18.0 [facility] Comment on above: Performed By: #### C RP, BMP, URIC ####[facility] Jjuotyyzml20[address] [place] [address]Dr. Nanomarcial Aj Urea nitrogen/Creatinine [Mass ratio] 16.2 mg/mg Normal [facility] Comment on above: Performed By: #### C RP, BMP, URIC ####[facility] Akquuemnij4042 [place] [id number]. Nanomarcial Aj SED RATE WESTERGRENon 2021 SED RATE 95 mm/hr Critically high <=30 [facility] Comment on above: Performed By: #### S EDR ####[facility] Dosgimgllv26[address] [place] [address]Dr. Nanomarcial Aj URIC ACID SERUMon 12-14-2022 Urate [Mass/Vol] 4.7 mg/dL Normal 2.6-6.0 [facility] Comment on above: Performed By: #### C RP, BMP, URIC ####[facility] Waedldrffu7[address] [place] [phone]. Ricardo Rocha XR FOOT LT MIN 3 VIEWSon XR FOOT LT MIN 3 VIEWS Normal [facility] PROF CHEM 8 (BAS METB)on Anion gap [Moles/Vol] 13.8 mmol/L Normal [facility] Comment on above: Performed By: #### B MP ####[facility] Hqnwsndqyc[address] [place] [address]Dr. Nanomarcial jA Calcium [Mass/Vol] 8.9 mg/dL Normal 8.5-10.1 [facility] Comment on above: Performed By: #### B MP ####[facility] Jdgwizuepg46[address] [place] [address]Dr. Ricardo Rocha Chloride [Moles/Vol] 101 mmol/L Normal 98-107 [facility] Comment on above: Performed By: #### B MP ####[facility] Suqbolucwm33[address] [place] [address]Dr. Ricardo Rocha CO2 [Moles/Vol] 22.8 mmol/L Normal 21.0-32.0 [facility] Comment on above: Performed By: #### B MP ####[facility] Beaizudksm5654 [place] [phone]. Ricardo Rocha Creatinine [Mass/Vol] 1.43 mg/dL Critically high 0.55-1.02 [facility] Comment on above: Performed By: #### B MP ####[facility] Svvbuypdkk[address] [place] [address]Dr. Ricardo Rocha EGFR-AF CUBAN 45 mL/min/1.73m2 Critically low >=60 [facility] Comment on above: Performed By: #### B MP ####[facility] Wsvtrxptek35[address] [place] [address]Dr. Ricardo Rocha EGFR-NON AF CUBAN 37 mL/min/1.73m2 Critically low >=60 [facility] Comment on above: Performed By: #### B MP ####[facility] Ftjrzpomwg8197 [place] [phone]. Ricardo Rocha Glucose [Mass/Vol] 279 mg/dL Critically high 74-106 [facility] Comment on above: Performed By: #### B MP ####[facility] Dxcjbyemiv4180 [place] [phone]. Ricardo Rocha Potassium [Moles/Vol] 4.6 mmol/L Normal 3.5-5.1 [facility] Comment on above: Performed By: #### B MP ####[facility] Ggsrgmfrgz9698 [place] [phone]. Ricardo Rocha Sodium [Moles/Vol] 133 mmol/L Critically low 136-145 Th [facility] Comment on above: Performed By: #### B MP ####[facility] Neqmvnixnh[address] [place], [place] [phone]. Ricardo Rocha Urea nitrogen [Mass/Vol] 24.0 mg/dL Critically high 7.0-18.0 [facility] Comment on above: Performed By: #### B MP ####[facility] Gmvnhcntwu[address] [place], [place] [phone]. Ricardo Rocha Urea nitrogen/Creatinine [Mass ratio] 16.8 mg/mg Normal [facility] Comment on above: Performed By: #### B MP ####[facility] Yzxbabopwt[address] [place], [place] [phone]. Ricardo Aj ACID FAST SMEAR AND CXon Acid Fast Culture Negative [facility] Comment on above: Result Comment: No a amilcar fast bacilli isolated after 6 weeks. Performed By: #### A FB ####[facility] Iryupgevsy7963 [place] [phone]. Ricardo Rocha Acid Fast Smear Negative Normal [facility] Comment on above: Performed By: #### A FB ####[facility] Kulikxamrv8128 [place] [phone]. Ricardo Rocha AF[employer] Specimen Processing Direct Inoculation [facility] Comment on above: Performed By: #### A FB ####[facility] Kylfxdzzxw5246 [place] [phone]. Ricardo Rocha [employer] Specimen Processing Tissue Grinding Normal [facility] Comment on above: Performed By: #### A FB ####[facility] Tihtilgguo220[address] [place] [address]Dr. Ricardo Rocha FUNGAL CULTUREon 07-11-2022 Fungus (Mycology) Culture Final report Normal [facility] Comment on above: Performed By: #### C XFUN ####[facility] Roolvfqymm[address] [place], [place] [address]Dr. Ricardo Rocha Fungus Stain Final report Normal [facility] Comment on above: Performed By: #### C XFUN ####[facility] Fjjcdmrqnz[address] [place], [place] [address]Dr. Ricardo Rocha Result 1 Comment Normal [facility] Comment on above: Result Comment: AAYUSH/ Calcofluor preparation: no fungus observed. Performed By: #### C XFUN ####[facility] Fjbdwtsifw095[address] [place], [place] [address]Dr. Ricardo Rocha Result Comment: No y east or mold isolated after 4 weeks. PROF CHEM 8 (BAS METB)on Anion gap [Moles/Vol] 15.1 mmol/L Normal [facility] Comment on above: Performed By: #### B MP ####[facility] Oksogkrfxw54[address] [place], [place] [address]Dr. Ricardo Rocha Calcium [Mass/Vol] 9.0 mg/dL Normal 8.5-10.1 [facility] Comment on above: Performed By: #### B MP ####[facility] Fpsnyvtkqz757[address] [place], [place] [address]Dr. Ricardo Rocha Chloride [Moles/Vol] 101 mmol/L Normal 98-107 [facility] Comment on above: Performed By: #### B MP ####[facility] Fmwsnuazwl684[address] [place], [place] [address]Dr. Ricardo Rocha CO2 [Moles/Vol] 18.5 mmol/L Critically low 21.0-32.0 [facility] Comment on above: Performed By: #### B MP ####[facility] Smqmqvtsvg9405 [place] [address]Dr. Ricardo Rocha Creatinine [Mass/Vol] 2.05 mg/dL Critically high 0.55-1.02 [facility] Comment on above: Performed By: #### B MP ####[facility] Tigymurcbk6940 [place] [address]Dr. Nanomarcial Aj EGFR-AF CUBAN 30 mL/min/1.73m2 Critically low >=60 [facility] Comment on above: Performed By: #### B MP ####[facility] Ktrpjvwwdb6293 [place] [address]Dr. Ricardo Rocha EGFR-NON AF CUBAN 24 mL/min/1.73m2 Critically low >=60 [facility] Comment on above: Performed By: #### B MP ####[facility] Ebjhbgzgai22[address] [place], [place] [address]Dr. Ricardo Rocha Glucose [Mass/Vol] 134 mg/dL Critically high 74-106 [facility] Comment on above: Performed By: #### B MP ####[facility] Unfyiombip155[address] [place], [place] [address]Dr. Ricardo Rocha Potassium [Moles/Vol] 5.6 mmol/L Critically high 3.5-5.1 [facility] Comment on above: Performed By: #### B MP ####[facility] Mdsypogmtp07[address] [place], [place] [address]Dr. Ricardo Rocha Sodium [Moles/Vol] 129 mmol/L Critically low 136-145 Th [facility] Comment on above: Performed By: #### B MP ####[facility] Mocndrhvxk4900[address] [place], [place] [address]Dr. Ricardo Rocha Urea nitrogen [Mass/Vol] 57.0 mg/dL Critically high 7.0-18.0 [facility] Comment on above: Performed By: #### B MP ####[facility] Ootjqvdoos[address] [place], [place] [address]Dr. Ricardo Rocha Urea nitrogen/Creatinine [Mass ratio] 27.8 mg/mg Normal [facility] Comment on above: Performed By: #### B MP ####[facility] Xsfudichip0053 [place] [address]Dr. Ricardo Rocha CBC AUTO DIFFon 07-06-2022 BASO # 0.0 103/ul Normal 0.0-0.1 [facility] Comment on above: Performed By: #### C BC ####[facility] Kuffegzwun37[address] [place], [place] [address]Dr. Nanomarcial Rocha Basophils/100 WBC (Bld) 0.6 % Normal 0.2-2.0 [facility] Comment on above: Performed By: #### C BC ####[facility] Sepptydisp4[address] [place], [place] [address]Dr. Ricardo Rocha EO # 0.1 103/ul Normal 0.0-0.7 [facility] Comment on above: Performed By: #### C BC ####[facility] Acqjbwsryi650[address] [place], [place] [address]Dr. Ricardo Rocha Eosinophils/100 WBC (Bld) 1.7 % Normal 0.9-7.0 [facility] Comment on above: Performed By: #### C BC ####[facility] Auvjvsqncj586[address] [place], [place] [address]Dr. Ricardo Aj Erythrocyte distribution width (RBC) [Ratio] 15.2 % Critically high 11.0-15.0 [facility] Comment on above: Performed By: #### C BC ####[facility] Oczrmdajmv[address] [place], [place] [address]Dr. Nanomarcial Rocha Hematocrit (Bld) [Volume fraction] 34.6 % Critically low 36.0-48.0 [facility] Comment on above: Performed By: #### C BC ####[facility] Tqqysyxsob9[address] [place], [place] [address]Dr. Ricardo Rocha Hemoglobin (Bld) [Mass/Vol] 10.5 g/dL Critically low 12.0-16.0 [facility] Comment on above: Performed By: #### C BC ####[facility] Golspnwbqm211[address] [place], [place] [address]Dr. Ricardo Rocha IG # 0.01 10e3/ul Normal 0.00-0.03 [facility] Comment on above: Performed By: #### C BC ####[facility] Dqxissytcc8926 [place] [address]Dr. Ricardo Rocha IG % 0.2 % Normal 0.0-0.5 [facility] Comment on above: Performed By: #### C BC ####[facility] Ghysuqajfx5359 [place] [address]Dr. Ricardo Rocha LYMPH # 2.4 103/ul Normal 1.2-3.8 [facility] Comment on above: Performed By: #### C BC ####[facility] Gbqobmqxzr[address] [place], [place] [address]DrIrina Ricardo Rocha Lymphocytes/100 WBC (Bld) 44.4 % Normal 20.5-60.0 [facility] Comment on above: Performed By: #### C BC ####[facility] Wniyxrruai258[address] [place], [place] [address]Dr. Ricardo Rocha MANUAL DIFF REQ NO Normal [facility] Comment on above: Performed By: #### C BC ####[facility] Wulxcyramm41[address] [place] [address]Dr. Ricardo Rocha MCH (RBC) [Entitic mass] 25.0 pg Critically low 26.7-34.0 [facility] Comment on above: Performed By: #### C BC ####[facility] Pvfzeyrclx[address] [place], [place] [address]Dr. Ricardo Rocha MCHC (RBC) [Mass/Vol] 30.3 g/dL Normal 29.9-35.2 [facility] Comment on above: Performed By: #### C BC ####[facility] Iawqnrmvru[address] [place], [place] [address]DrIrina Ricardo Rocha MCV (RBC) [Entitic vol] 82.4 fL Normal 81.0-99.0 [facility] Comment on above: Performed By: #### C BC ####[facility] Iibedkkcow[address] [place], [place] [address]DrIrina Ricardo Aj MONO # 0.3 103/ul Normal 0.3-0.8 [facility] Comment on above: Performed By: #### C BC ####[facility] Qgwoumhexh9439 [place] [address]Dr. Ricardo Rocha Monocytes/100 WBC (Bld) 5.1 % Normal 1.7-12.0 [facility] Comment on above: Performed By: #### C BC ####[facility] Apiiatiifb1703 [place] [phone]. Ricardo Rocha NEUT # 2.5 103/ul Normal 1.4-6.5 [facility] Comment on above: Performed By: #### C BC ####[facility] Odgbhhgmau20[address] [place] [address]Dr. Ricardo Rocha Neutrophils/100 WBC (Bld) 48.0 % Normal 43.0-75.0 [facility] Comment on above: Performed By: #### C BC ####[facility] Ojxgzmhyme4572 [place] [address]Dr. Ricardo Rocha Platelet mean volume (Bld) [Entitic vol] 10.7 fL Normal 9.5-13.5 [facility] Comment on above: Performed By: #### C BC ####[facility] Bfonjgfnzo[address] [place], [place] [address]Dr. Ricardo Rocha PLT 261 103/ul Normal 150-450 [facility] Comment on above: Performed By: #### C BC ####[facility] Frfkeftijj6556 [place] [address]Dr. Ricardo Rocha RBC 4.20 106/ul Normal 4.20-5.40 [facility] Comment on above: Performed By: #### C BC ####[facility] Fchwpfoilf0892 [place] [id number]. Ricardo Rocha WBC 5.3 103/ul Normal 4.0-11.0 [facility] Comment on above: Performed By: #### C BC ####[facility] Maltopolkh9650 [place] [phone]. Ricardo Rocha GLYCOHEMOGLOBIN A1Con 2021 ADA RECOMMENDATION SEE BELOW Normal [facility] Comment on above: Result Comment: ADA RECOMMENDED LIMIT 4.0 - 6.0 ADA THERAPEUTIC TARGET < 7.0 ACTION SUGGESTED > 7.0 Performed By: #### A 1C ####[facility] Nsrxwqedak5079 [place] [phone]. Ricardo Rocha Glucose [Mass/Vol] 289 mg/dL Normal [facility] Comment on above: Performed By: #### A 1C ####[facility] Glxtctifoz5[address] [place] [address]Dr. Ricardo Rocha HbA1c (Bld) [Mass fraction] 11.7 % Critically high 4.5-6.2 [facility] Comment on above: Performed By: #### A 1C ####[facility] Liwjlmukha[address] [place] [address]Dr. Ricardo Aj LIPID PROFILEon 07-06-2022 CHOL-HDL RATIO NORM SEE BELOW Normal [facility] Comment on above: Result Comment: 3.3 - 4.4 LOW RISK 4.4 - 7.1 AVERAGE RISK 7.1 - 11.0 MODERATE RISK >11.0 HIGH RISK Performed By: #### T SH, CMP, LIPID ####[facility] Jeffxbaxkv2753 [place] [id number]. Ricardo Rocha Cholesterol [Mass/Vol] 284 mg/dL Critically high <=200 [facility] Comment on above: Performed By: #### T SH, CMP, LIPID ####[facility] Wbmbyurmdz6821 [place] [phone]. Ricardo Rocha Cholesterol in HDL [Mass/Vol] 40 mg/dL Normal 40-60 [facility] Comment on above: Performed By: #### T SH, CMP, LIPID ####[facility] Qruabyzeif9205 [place] [phone]. Ricardo Rocha Cholesterol in LDL [Mass/Vol] 167.8 mg/dL Normal [facility] Comment on above: Performed By: #### T SH, CMP, LIPID ####[facility] Ioezijieho5631 [place] [id number]. Ricardo Rocha Cholesterol.total/Ch olesterol in HDL [Mass ratio] 7.1 {ratio} Normal [facility] Comment on above: Performed By: #### T SH, CMP, LIPID ####[facility] Hzzityqzad4[address] [place] [address]Dr. Ricardo Rocha HDL NORMAL > or = 60 mg/dl - LO W CARDIOVASCULAR RISK <40 mg/dl - HIGH CARDIOVASCULAR RISK Normal [facility] Comment on above: Performed By: #### T SH, CMP, LIPID ####[facility] Hzeutxeqpv33[address] [place] [address]Dr. Ricardo Rocha LDL CALC NORMAL SEE BELOW Normal [facility] Comment on above: Result Comment: <100 mg/dl OPTIMAL 100 - 129 mg/dl NEAR OR ABOVE OPTIMAL 130 - 159 mg/dl BORDERLINE HIGH 160 - 189 mg/dl HIGH >190 mg/dl VERY HIGH Performed By: #### T SH, CMP, LIPID ####[facility] Oaamfxqdvn7162 [place] [address]Dr. Ricardo Rocha Triglyceride [Mass/Vol] 381 mg/dL Critically high <=150 [facility] Comment on above: Performed By: #### T SH, CMP, LIPID ####[facility] Qvhfucxmgc4516 [place] [address]Dr. Ricardo Rocha VLDL CALC 76.2 mg/dL Normal [facility] Comment on above: Performed By: #### T SH, CMP, LIPID ####[facility] Yampkmfbpz2296 [place] [address]Dr. Ricardo Rocha MICROALBUMIN, RAND URon 11- mALB <1.3 Normal <=30.0 [facility] Comment on above: Performed By: #### M ALBR ####[facility] Khqknkulmc4549 [place] [address]Dr. Ricardo Rocha PROF 14(COMP METB)on 022 Albumin [Mass/Vol] 3.3 g/dL Critically low 3.4-5.0 [facility] Comment on above: Performed By: #### T SH, CMP, LIPID ####[facility] Cepsgbukju[address]016 [place] [place] [address]Dr. Ricardo Rocha Albumin/Globulin [Mass ratio] 0.5 {ratio} Normal [facility] Comment on above: Performed By: #### T SH, CMP, LIPID ####[facility] Qvyayhazuv[address] [place] [address]Dr. Ricardo Rocha ALP [Catalytic activity/Vol] 129 U/L Critically high 46-116 [facility] Comment on above: Performed By: #### T SH, CMP, LIPID ####[facility] Knbfmfacoq5[address] [place] [address]Dr. Ricardo Rocha ALT [Catalytic activity/Vol] 22 U/L Normal 14-59 [facility] Comment on above: Performed By: #### T SH, CMP, LIPID ####[facility] Atqnyavnux7[address] [place] [address]Dr. Ricardo Rocha Anion gap [Moles/Vol] 16.1 mmol/L Normal [facility] Comment on above: Performed By: #### T SH, CMP, LIPID ####[facility] Kkuurbatkc[address] [place], [place] [address]Dr. Ricardo Rocha AST [Catalytic activity/Vol] 22 U/L Normal 15-37 [facility] Comment on above: Performed By: #### T SH, CMP, LIPID ####[facility] Vfogosjtas[address] [place], [place] [address]Dr. Ricardo Rocha Bilirubin [Mass/Vol] 0.2 mg/dL Normal 0.2-1.0 [facility] Comment on above: Performed By: #### T SH, CMP, LIPID ####[facility] Rnayxoardz[address] [place], [place] [address]Dr. Ricardo Rocha Calcium [Mass/Vol] 9.4 mg/dL Normal 8.5-10.1 [facility] Comment on above: Performed By: #### T SH, CMP, LIPID ####[facility] Vbqfmupzxp6[address] [place] [address]Dr. Ricardo Rocha Chloride [Moles/Vol] 102 mmol/L Normal 98-107 [facility] Comment on above: Performed By: #### T SH, CMP, LIPID ####[facility] Lrvtfatcop34[address] [place], [place] [address]Dr. Ricardo Rocha CO2 [Moles/Vol] 18.4 mmol/L Critically low 21.0-32.0 [facility] Comment on above: Performed By: #### T SH, CMP, LIPID ####[facility] Afocwymqzt7370 [place] [address]Dr. Ricardo Rocha Creatinine [Mass/Vol] 2.01 mg/dL Critically high 0.55-1.02 [facility] Comment on above: Performed By: #### T SH, CMP, LIPID ####[facility] Kuwmwbgiap6941 [place] [address]Dr. Nanomarcial Rocha EGFR-AF CUBAN 30 mL/min/1.73m2 Critically low >=60 [facility] Comment on above: Performed By: #### T SH, CMP, LIPID ####[facility] Emjdqdxeww6407 [place] [address]Dr. Ricardo Rocha EGFR-NON AF CUBAN 25 mL/min/1.73m2 Critically low >=60 [facility] Comment on above: Performed By: #### T SH, CMP, LIPID ####[facility] Rgdruwxtyd4677 [place] [address]Dr. Ricardo Rocha Globulin (S) [Mass/Vol] 6.3 g/dL Normal [facility] Comment on above: Performed By: #### T SH, CMP, LIPID ####[facility] Tnfipgxdcf1793 [place] [address]Dr. Ricardo Rocha Glucose [Mass/Vol] 118 mg/dL Critically high 74-106 [facility] Comment on above: Performed By: #### T SH, CMP, LIPID ####[facility] Dalhaohsda7969 [place] [address]Dr. Ricardo Rocha Potassium [Moles/Vol] 5.5 mmol/L Critically high 3.5-5.1 [facility] Comment on above: Performed By: #### T SH, CMP, LIPID ####[facility] Pvwtrbdolk9435 [place] [address]Dr. Ricardo Rocha Protein [Mass/Vol] 9.6 g/dL Critically high 6.4-8.2 [facility] Comment on above: Performed By: #### T SH, CMP, LIPID ####[facility] Wqabpwahdk8636 [place] [address]Dr. Ricardo Rocha Sodium [Moles/Vol] 131 mmol/L Critically low 136-145 [facility] Comment on above: Performed By: #### T SH, CMP, LIPID ####[facility] Ythtufpqoi5208 [place] [address]Dr. Ricardo Rocha Urea nitrogen [Mass/Vol] 45.0 mg/dL Critically high 7.0-18.0 [facility] Comment on above: Performed By: #### T SH, CMP, LIPID ####[facility] Ftbppmcsxs6618[address] [place], [place] [address]Dr. Ricardo Rocha Urea nitrogen/Creatinine [Mass ratio] 22.4 mg/mg Normal [facility] Comment on above: Performed By: #### T SH, CMP, LIPID ####[facility] Cyljzfpwft86[address] [place], [place] [address]Dr. Ricardo Rocha TSHon 07-06-2022 TSH 1.178 uIU/mL Normal 0.358-3.740 [facility] Comment on above: Performed By: #### T SH, CMP, LIPID ####[facility] Ohavmrjtzq164[address] [place], [place] [address]Dr. Ricardo Rocha UA RANDOM W/MICROSCOPICon BACTERIA NONE SEEN Normal NONE SEEN [facility] Comment on above: Performed By: #### U AMIC ####[facility] Ldvqztfbfb0933[address] [place], [place] [address]Dr. Ricardo Rocha Bilirubin Ql (U) Negative Normal NEGATIVE [facility] Comment on above: Performed By: #### U AMIC ####[facility] Nmipnmiwgp008[address] [place], [place] [address]Dr. Ricardo Rocha CAST NONE SEEN Normal NONE SEEN [facility] Comment on above: Performed By: #### U AMIC ####[facility] Vfhqnpnbnt585[address] [place], [place] [address]Dr. Ricardo Rocha Clarity (U) CLEAR Normal CLEAR [facility] Comment on above: Performed By: #### U AMIC ####[facility] Bueetqccyl9[address] [place] [address]Dr. Ricardo Rocha Color (U) LT. YELLOW Normal YELLOW The [facility] Comment on above: Performed By: #### U AMIC ####[facility] Eumazteujr7330 [place] [id number]. Yilan Rocha Crystals LM Nom (Urine sed) NONE SEEN Normal NONE SEEN [facility] Comment on above: Performed By: #### U AMIC ####[facility] Vwyxvszweo1620 [place] [address]Dr. Yilan Rocha Epithelial cells LM Ql (Urine sed) NONE SEEN Normal NONE SEEN /RARE The [facility] Comment on above: Performed By: #### U AMIC ####[facility] Ofbtatfdne4115 [place] [address]Dr. Yilan Rocha Glucose Ql (U) Negative Normal NEGATIVE [facility] Comment on above: Performed By: #### U AMIC ####[facility] Dcecokkege107[address] [place], [place] [address]Dr. Yilan Rocha Hemoglobin Ql (U) Negative Normal NEGATIVE [facility] Comment on above: Performed By: #### U AMIC ####[facility] Gxnobadsfv098[address] [place], [place] [address]Dr. Yilan Rocha Ketones Ql (U) Negative Normal NEGATIVE [facility] Comment on above: Performed By: #### U AMIC ####[facility] Ukwtzmjoem64[address] [place], [place] [address]Dr. Yilan Rocha LEUKOCYTES Negative Normal NEGATIVE The [facility] Comment on above: Performed By: #### U AMIC ####[facility] Qljmcdbbty4657 [place] [address]Dr. Yilan Rocha MUCOUS NONE SEEN Normal NONE SEEN [facility] Comment on above: Performed By: #### U AMIC ####[facility] Uqfyykkgtp7301 [place] [address]Dr. Yilan Rocha Nitrite Ql (U) Negative Normal NEGATIVE [facility] Comment on above: Performed By: #### U AMIC ####[facility] Fjunlxwpcr3376 [place] [address]Dr. Ricardo Rocha pH (U) 5.5 [pH] Normal 5-9 [facility] Comment on above: Performed By: #### U AMIC ####[facility] Xigymdaegw5341 [place] [address]Dr. Ricardo Rocha RBC NONE SEEN Abnormal 0-2 The [facility] Comment on above: Performed By: #### U AMIC ####[facility] Rdufqfuemc04[address] [place], [place] [address]Dr. Ricardo Rocha SPEC GRAVITY 1.020 Normal 1.005-<=1.02 5 The [facility] Comment on above: Performed By: #### U AMIC ####[facility] Mpbshfrxsc536[address] [place], [place] [address]Dr. Ricardo Rocha UA PROTEIN Negative Normal NEGATIVE/ TRACE The [facility] Comment on above: Performed By: #### U AMIC ####[facility] Wkylltzwoo2385[address] [place], [place] [address]Dr. Ricardo Rocha Urobilinogen Qn (U) 0.2 {Madeleine'U}/dL Normal 0.2 - 1. 0 The [facility] Comment on above: Performed By: #### U AMIC ####[facility] Pnrvrffxzt0075[address] [place], [place] [address]Dr. Ricardo Rocha WBC NONE SEEN Normal NONE SEEN The [facility] Comment on above: Performed By: #### U AMIC ####[facility] Bawvjyygov104[address] [place], [place] [address]Dr. Ricardo Rocha CBC W MANUAL DIFFon 06-16-20 22 ATYPICAL LYMPH # Normal [facility] Comment on above: Performed By: #### C BCRED ####[facility] Lcbhppfhdg2504[address] [place], [place] [address]Dr. Ricardo Rocha ATYPICAL LYMPH % Normal [facility] Comment on above: Performed By: #### C BCRED ####[facility] Ogkyrrrpsg219[address] [place], [place] [address]Dr. Ricardo Rocha BAND # 0.2 103/ul Normal 0.0-0.3 The [facility] Comment on above: Performed By: #### C BCMAN ####[facility] Wcuvkcexou3962 [place] [id number]. Ricardo Rocha BAND % 2 % Normal 0-5 The [facility] Comment on above: Performed By: #### C BCMAN ####[facility] Dfizfmnbeo8572 [place] [phone]. Yimarcial Rocha BASOM # 0.00 103/ul Normal 0.00-0.10 The [facility] Comment on above: Performed By: #### C BCMAN ####[facility] Fhvjnapfqz5350 [place] [phone]. Yimarcial Rocha BASOM % 0.0 % Critically low 0.2-2.0 [facility] Comment on above: Performed By: #### C BCRED ####[facility] Lueewusyco6628 [place] [address]Dr. Yimarcial Rocha BLAST # Normal [facility] Comment on above: Performed By: #### C BCMAN ####[facility] Dxahuzirzj[address] [place], [place] [address]Dr. Yimarcial Rocha BLAST % Normal [facility] Comment on above: Performed By: #### C BCMAN ####[facility] Vhzcfctdue9798 [place] [address]Dr. Ricardo Rocha CORRECTED WBC Normal 4.0-11.0 [facility] Comment on above: Performed By: #### C BCMAN ####[facility] Drqwyrempd8[address] [place], [place] [address]Dr. Yimarcial Rocha EOS # 0.11 103/ul Normal 0.00-0.70 [facility] Comment on above: Performed By: #### C BCMAN ####[facility] Zpxlquqxyy032[address] [place], [place] [address]Dr. Ricardo Rocha EOS% 1.0 % Normal 0.9-7.0 The [facility] Comment on above: Performed By: #### C BCMAN ####[facility] Sfrycjbtmv767[address] [place], [place] [address]Dr. Ricardo Rocha HCT 24.2 % Critically low 36.0-48.0 [facility] Comment on above: Performed By: #### C BCRED ####[facility] Nnmfhrlqjv2876 [place] [phone]. Ricardo Rocha HGB 7.9 g/dl Critically low 12.0-16.0 [facility] Comment on above: Performed By: #### C BCRED ####[facility] Ixeooibkbw5834 [place] [phone]. Ricardo Rocha LYMPHM # 1.81 103/ul Normal 1.20-3.80 [facility] Comment on above: Performed By: #### C DWAINE ####[facility] Potvhqkamr5957 [place] [id number]. Ricardo Rocha LYMPHM% 16.0 % Critically low 20.5-60.0 [facility] Comment on above: Performed By: #### C DWAINE ####[facility] Zwwyogntjv9892 [place] [address]Dr. Ricardo Rocha MCH 25.2 pg Critically low 26.7-34.0 [facility] Comment on above: Performed By: #### C DWAINE ####[facility] Mfpijpvexp9776 [place] [phone]. Ricardo Rocha MCHC 32.6 g/dl Normal 29.9-35.2 [facility] Comment on above: Performed By: #### C DWAINE ####[facility] Bryybthadn2274 [place] [phone]. Ricardo Rocha MCV 77.3 fL Critically low 81.0-99.0 [facility] Comment on above: Performed By: #### C BCRED ####[facility] Hsxhgfrpeu0172 [place] [id number]. Ricardo Rocha METAMYELOCYTE # 0.5 103/ul Normal [facility] Comment on above: Performed By: #### C BCRED ####[facility] Osdkmhbruh8219 [place] [id number]. Ricardo Rocha METAMYELOCYTE % 4 % Normal [facility] Comment on above: Performed By: #### C BCRED ####[facility] Tslkyduzyy0465 [place], [place] [address]Dj. Ricardo Rocha MONOM# 0.45 103/ul Normal 0.30-0.80 The [facility] Comment on above: Performed By: #### C DWAINE ####[facility] Zwhkbidfrt5768 [place], [place] [address]Qh. Ricardo Rocha MONOM% 4.0 % Normal 1.7-12.0 [facility] Comment on above: Performed By: #### C DWAINE ####[facility] Itpkdummuv1611 [place], [place] [address]Ih. Ricardo Rocha MPV 10.4 fL Normal 9.5-13.5 [facility] Comment on above: Performed By: #### C DWAINE ####[facility] Vdmyxrrlet1668 [place] [address]Dr. Ricardo Rocha MYELOCYTE # 0.5 103/ul Normal [facility] Comment on above: Performed By: #### C DWAINE ####[facility] Npspweoiza7595 [place] [address]Dr. Ricardo Rocha MYELOCYTE % 4 % Normal [facility] Comment on above: Performed By: #### C DWAINE ####[facility] Qfndgdhjgz4384 [place] [phone]. Ricardo Rocha NRBC Normal [facility] Comment on above: Performed By: #### C DWAINE ####[facility] Hnxusnbndz8261 [place] [phone]. Ricardo Rocha PLT 325 103/ul Normal 150-450 [facility] Comment on above: Performed By: #### C DWAINE ####[facility] Tagvixlukb9491 [place], [place] [address]Xa. Ricardo Rocha RBC 3.13 106/ul Critically low 4.20-5.40 [facility] Comment on above: Performed By: #### C DWAINE ####[facility] Tqnrxxjtlf2678 [place] [id number]. Ricardo Rocha RDW 13.7 % Normal 11.0-15.0 The [facility] Comment on above: Performed By: #### C DWAINE ####[facility] Vsheudbauj2496 [place] [phone]. Ricardo Rocha SEG # 7.80 103/ul Critically high 1.40-6.50 [facility] Comment on above: Performed By: #### C BCMAN ####[facility] Prhfqwxavh7958 [place] [address]Dr. Ricardo Rocha SEG % 69.0 % Normal 43.0-75.0 [facility] Comment on above: Performed By: #### C BCMAN ####[facility] Ughgikomje1338 [place] [address]Dr. Ricardo Rocha WBC 11.3 103/ul Critically high 4.0-11.0 [facility] Comment on above: Performed By: #### C DWAINE ####[facility] Pqhlbzefoe6887 [place] [address]Dr. Ricardo Rocha PROF 14(COMP METB)on 022 Albumin [Mass/Vol] 1.7 g/dL Critically low 3.4-5.0 [facility] Comment on above: Performed By: #### C MP ####[facility] Qedonzhnor86[address] [place], [place] [address]Dr. Ricardo Rocha Albumin/Globulin [Mass ratio] 0.4 {ratio} Normal [facility] Comment on above: Performed By: #### C MP ####[facility] Xpbbziiysp6351 [place] [address]Dr. Ricardo Rocha ALP [Catalytic activity/Vol] 174 U/L Critically high 46-116 [facility] Comment on above: Performed By: #### C MP ####[facility] Jnrorlazdm9764 [place] [address]Dr. Ricardo Rocha ALT [Catalytic activity/Vol] 14 U/L Normal 14-59 [facility] Comment on above: Performed By: #### C MP ####[facility] Bnyzezvhdy9013 [place] [address]Dr. Ricardo Rocha Anion gap [Moles/Vol] 10.8 mmol/L Normal [facility] Comment on above: Performed By: #### C MP ####[facility] Xklajekofe0644 [place] [id number]. Ricardo Rocha AST [Catalytic activity/Vol] 13 U/L Critically low 15-37 [facility] Comment on above: Performed By: #### C MP ####[facility] Eycyrlgirm5515 [place] [id number]. Ricardo Rocha Bilirubin [Mass/Vol] 0.3 mg/dL Normal 0.2-1.0 [facility] Comment on above: Performed By: #### C MP ####[facility] Delawlxkwu5008 [place] [address]Dr. Ricardo Rocha Calcium [Mass/Vol] 8.2 mg/dL Critically low 8.5-10.1 Th e [facility] Comment on above: Performed By: #### C MP ####[facility] Cucpvhkwjj058[address] [place], [place] [address]Dr. Ricardo Rocha Chloride [Moles/Vol] 104 mmol/L Normal 98-107 The [facility] Comment on above: Performed By: #### C MP ####[facility] Mtkthvncoa13[address] [place], [place] [address]Dr. Ricardo Rocha CO2 [Moles/Vol] 22.4 mmol/L Normal 21.0-32.0 [facility] Comment on above: Performed By: #### C MP ####[facility] Ligjvrfvav44[address] [place], [place] [address]Dr. Ricardo Rocha Creatinine [Mass/Vol] 1.29 mg/dL Critically high 0.55-1.02 [facility] Comment on above: Performed By: #### C MP ####[facility] Xparymsqjq6440 [place] [id number]. Ricardo Aj EGFR-AF CUBAN 50 mL/min/1.73m2 Critically low >=60 The [facility] Comment on above: Performed By: #### C MP ####[facility] Wzvsvlkwsv1764[address] [place], [place] [address]Dr. Nanomarcial Aj EGFR-NON AF CUBAN 42 mL/min/1.73m2 Critically low >=60 The [facility] Comment on above: Performed By: #### C MP ####[facility] Wjodzoqcwn5949 [place] [phone]. Ricardo Rocha Globulin (S) [Mass/Vol] 4.8 g/dL Normal [facility] Comment on above: Performed By: #### C MP ####[facility] Duzszhryvl6475 [place] [address]Dr. Ricardo Rocha Glucose [Mass/Vol] 262 mg/dL Critically high 74-106 [facility] Comment on above: Performed By: #### C MP ####[facility] Qtrfiqlxzp1114 [place] [address]Dr. Ricardo Rocha Potassium [Moles/Vol] 3.2 mmol/L Critically low 3.5-5.1 [facility] Comment on above: Performed By: #### C MP ####[facility] Ekrwqfdesy7124 [place] [address]Dr. Ricardo Rocha Protein [Mass/Vol] 6.5 g/dL Normal 6.4-8.2 [facility] Comment on above: Performed By: #### C MP ####[facility] Piughxynpv1139 [place] [address]Dr. Ricardo Rocha Sodium [Moles/Vol] 134 mmol/L Critically low 136-145 Th [facility] Comment on above: Performed By: #### C MP ####[facility] Ociimlmfpd9854 [place] [address]Dr. Ricardo Aj Urea nitrogen [Mass/Vol] 20.0 mg/dL Critically high 7.0-18.0 [facility] Comment on above: Performed By: #### C MP ####[facility] Puwltfkryo4567 [place] [address]Dr. Ricardo Aj Urea nitrogen/Creatinine [Mass ratio] 15.5 mg/mg Normal [facility] Comment on above: Performed By: #### C MP ####[facility] Zuxvcseozz2973 [place] [address]Dr. Ricardo Aj CBC AUTO DIFFon 06-15-2022 BASO # 0.1 103/ul Normal 0.0-0.1 [facility] Comment on above: Performed By: #### C BC ####[facility] Nxmgxbedti7097 [place] [address]Dr. Ricardo Aj Basophils/100 WBC (Bld) 0.7 % Normal 0.2-2.0 [facility] Comment on above: Performed By: #### C BC ####[facility] Snwezkyvkt[address] [place], [place] [address]Dr. Ricardo Rocha EO # 0.1 103/ul Normal 0.0-0.7 [facility] Comment on above: Performed By: #### C BC ####[facility] Rbfuicycey625[address] [place], [place] [address]Dr. Ricardo Aj Eosinophils/100 WBC (Bld) 0.7 % Critically low 0.9-7.0 [facility] Comment on above: Performed By: #### C BC ####[facility] Piwwtjayaq737[address] [place], [place] [address]Dr. Ricardo Aj Erythrocyte distribution width (RBC) [Ratio] 13.7 % Normal 11.0-15.0 [facility] Comment on above: Performed By: #### C BC ####[facility] Mwtwhfwfky58[address] [place], [place] [address]Dr. Ricardo Rocha Hematocrit (Bld) [Volume fraction] 26.7 % Critically low 36.0-48.0 [facility] Comment on above: Performed By: #### C BC ####[facility] Mhemwadpbn32[address] [place], [place] [address]Dr. Ricardo Rocha Hemoglobin (Bld) [Mass/Vol] 8.4 g/dL Critically low 12.0-16.0 The [facility] Comment on above: Performed By: #### C BC ####[facility] Nbvfpymzfc5745[address] [place], [place] [address]Dr. Ricardo Rocha IG # 0.83 10e3/ul Critically high 0.00-0.03 [facility] Comment on above: Performed By: #### C BC ####[facility] Pcshcprgge068[address] [place], [place] [address]Dr. Ricardo Rocha IG % 6.2 % Critically high 0.0-0.5 [facility] Comment on above: Performed By: #### C BC ####[facility] Mgxislnajo8870 [place] [address]DrIrina Rocha LYMPH # 1.3 103/ul Normal 1.2-3.8 [facility] Comment on above: Performed By: #### C BC ####[facility] Fjlauuwtjj1967 [place] [address]DrIrina Rocha Lymphocytes/100 WBC (Bld) 9.6 % Critically low 20.5-60.0 [facility] Comment on above: Performed By: #### C BC ####[facility] Cyifquoets[address] [place], [place] [address]DrIrina Rocha MANUAL DIFF REQ NO Normal [facility] Comment on above: Performed By: #### C BC ####[facility] Zgfpmlqsdx[address] [place], [place] [address]DrIrina Rocha MCH (RBC) [Entitic mass] 25.1 pg Critically low 26.7-34.0 [facility] Comment on above: Performed By: #### C BC ####[facility] Csdlobqjdg34[address] [place], [place] [address]DrIrina Rocha MCHC (RBC) [Mass/Vol] 31.5 g/dL Normal 29.9-35.2 [facility] Comment on above: Performed By: #### C BC ####[facility] Zxwbyqefdz[address] [place], [place] [address]DrIrina Rocha MCV (RBC) [Entitic vol] 79.7 fL Critically low 81.0-99.0 [facility] Comment on above: Performed By: #### C BC ####[facility] Tcynfskrto[address] [place], [place] [address]DrIrina Rocha MONO # 1.0 103/ul Critically high 0.3-0.8 [facility] Comment on above: Performed By: #### C BC ####[facility] Tqgmnftxks[address] [place], [place] [address]DrIrina Rocha Monocytes/100 WBC (Bld) 7.3 % Normal 1.7-12.0 [facility] Comment on above: Performed By: #### C BC ####[facility] Udrkyicapy3870 [place] [address]Dr. Ricardo Rocha NEUT # 10.2 103/ul Critically high 1.4-6.5 [facility] Comment on above: Performed By: #### C BC ####[facility] Bollokwxkz207[address] [place], [place] [address]Dr. Ricardo Rocha Neutrophils/100 WBC (Bld) 75.5 % Critically high 43.0-75.0 [facility] Comment on above: Performed By: #### C BC ####[facility] Ofgorghjtz814[address] [place], [place] [address]Dr. Ricardo Rocha Platelet mean volume (Bld) [Entitic vol] 11.8 fL Normal 9.5-13.5 [facility] Comment on above: Performed By: #### C BC ####[facility] Vjvddblxsp[address] [place], [place] [address]Dr. Ricardo Rocha PLT 208 103/ul Normal 150-450 [facility] Comment on above: Performed By: #### C BC ####[facility] Ebnotthrbs[address] [place], [place] [address]Dr. Ricardo Rocha RBC 3.35 106/ul Critically low 4.20-5.40 [facility] Comment on above: Performed By: #### C BC ####[facility] Kyswapvvjj255[address] [place], [place] [address]Dr. Ricardo Rocha WBC 13.5 103/ul Critically high 4.0-11.0 [facility] Comment on above: Performed By: #### C BC ####[facility] Wsnqjxaacn[address] [place], [place] [address]Dr. Ricardo Aj CULTURE BLOODon 06-15-2022 Microscopic examination of blood, culture Culture Observations: NO GROWTH AT 5 DAYS Normal [facility] Comment on above: Performed By: #### B LDCX2 ####[facility] Gdhigygeuj0101[address] [place], [place] [address]Dr. Ricardo Rocha Microscopic examination of blood, culture Culture Observations: NO GROWTH AT 5 DAYS Normal [facility] Comment on above: Performed By: #### B LDCX1 ####[facility] Gyswdnnthf774[address] [place], [place] [address]DrIrina Ricardo Rocha Covid-19 PCR (CVDTB)on 05-22 SARS-CoV-2 (COVID-19) RNA ADRIEL+probe Ql (Unsp spec) Not detected Normal NOT DETECTED [facility] Comment on above: Result Comment: When [...] for this test is supported by the [employer] of Health and Human Service's declaration that [...] be used). Performed By: #### C VDTBH ####[facility] Rtheojucza[address] [place] [address]Dr. Ricardo Aj POINT OF CARE GLUCOSEon 05-22 Glucose [Mass/Vol] 366 mg/dL Critically high -106 [facility] Comment on above: Performed By: #### P OCGLUC ####[facility] Kigstjrczm[address] [place] [address]Dr. Ricardo Rocha Glucose [Mass/Vol] 229 mg/dL Critically high -106 [facility] Comment on above: Performed By: #### P OCGLUC ####[facility] Scnupjsgfm1938[address] [place], [place] [address]Dr. Ricardo Rocha Glucose [Mass/Vol] 258 mg/dL Critically high -106 [facility] Comment on above: Performed By: #### P OCGLUC ####[facility] Piqcxxmrci67[address] [place] [address]Dr. Ricardo Rocha PROF 14(COMP METB)on 022 Albumin [Mass/Vol] 1.8 g/dL Critically low 3.4-5.0 [facility] Comment on above: Performed By: #### C MP ####[facility] Tiefbxbvnp[address] [place] [address]Dr. Ricardo Rocha Albumin/Globulin [Mass ratio] 0.4 {ratio} Normal [facility] Comment on above: Performed By: #### C MP ####[facility] Cwqhgzftqv114[address] [place], [place] [address]Dr. Ricardo Rocha ALP [Catalytic activity/Vol] 196 U/L Critically high 46-116 [facility] Comment on above: Performed By: #### C MP ####[facility] Wkyzylytfc7732[address] [place], [place] [address]Dr. Ricardo Rocha ALT [Catalytic activity/Vol] 18 U/L Normal 14-59 [facility] Comment on above: Performed By: #### C MP ####[facility] Nwvfeokbgl495[address] [place], [place] [address]Dr. Ricardo Rocha Anion gap [Moles/Vol] 16.3 mmol/L Normal [facility] Comment on above: Performed By: #### C MP ####[facility] Acegtvwubv698[address] [place], [place] [address]Dr. Ricardo Rocha AST [Catalytic activity/Vol] 22 U/L Normal 15-37 [facility] Comment on above: Performed By: #### C MP ####[facility] Ttmcuwovrh8425[address] [place], [place] [address]Dr. Ricardo Rocha Bilirubin [Mass/Vol] 0.4 mg/dL Normal 0.2-1.0 [facility] Comment on above: Performed By: #### C MP ####[facility] Mkbvekqpuq1238[address] [place], [place] [address]Dr. Ricardo Rocha Calcium [Mass/Vol] 8.2 mg/dL Critically low 8.5-10.1 [facility] Comment on above: Performed By: #### C MP ####[facility] Dgqjzqbgfk61[address] [place] [address]Dr. Ricardo Aj Chloride [Moles/Vol] 103 mmol/L Normal 98-107 [facility] Comment on above: Performed By: #### C MP ####[facility] Eevfrqwzfr17[address] [place] [id number]. Ricardo Aj CO2 [Moles/Vol] 19.0 mmol/L Critically low 21.0-32.0 [facility] Comment on above: Performed By: #### C MP ####[facility] Bqrlndyzgn7[address] [place] [address]Dr. Ricardo Aj Creatinine [Mass/Vol] 1.32 mg/dL Critically high 0.55-1.02 [facility] Comment on above: Performed By: #### C MP ####[facility] Srbxzijoxh599[address] [place], [place] [address]Dr. Ricardo Aj EGFR-AF CUBAN 49 mL/min/1.73m2 Critically low >=60 [facility] Comment on above: Performed By: #### C MP ####[facility] Vksuybdwhv9185[address] [place], [place] [address]Dr. Ricardo Aj EGFR-NON AF CUBAN 41 mL/min/1.73m2 Critically low >=60 [facility] Comment on above: Performed By: #### C MP ####[facility] Oiktnnqarq4[address] [place] [address]Dr. Nanomarcial Rocha Globulin (S) [Mass/Vol] 5.0 g/dL Normal [facility] Comment on above: Performed By: #### C MP ####[facility] Xxftvhrtap8[address] [place] [address]Dr. Ricardo Rocha Glucose [Mass/Vol] 228 mg/dL Critically high 74-106 [facility] Comment on above: Performed By: #### C MP ####[facility] Jmrwvmybkc4839 [place] [address]Dr. Ricardo Rocha Potassium [Moles/Vol] 3.3 mmol/L Critically low 3.5-5.1 [facility] Comment on above: Performed By: #### C MP ####[facility] Dnmxrkyszu5867 [place] [address]Dr. Ricardo Rocha Protein [Mass/Vol] 6.8 g/dL Normal 6.4-8.2 [facility] Comment on above: Performed By: #### C MP ####[facility] Cgjeerlvoh289[address] [place], [place] [address]Dr. Ricardo Rocha Sodium [Moles/Vol] 135 mmol/L Critically low 136-145 [facility] Comment on above: Performed By: #### C MP ####[facility] Idjfifduxf5080[address] [place], [place] [address]Dr. Ricardo Rocha Urea nitrogen [Mass/Vol] 23.0 mg/dL Critically high 7.0-18.0 [facility] Comment on above: Performed By: #### C MP ####[facility] Atombdzlnh6170[address] [place], [place] [address]Dr. Ricardo Rocha Urea nitrogen/Creatinine [Mass ratio] 17.4 mg/mg Normal [facility] Comment on above: Performed By: #### C MP ####[facility] Tdboftuenp[address] [place], [place] [address]Dr. Ricardo Rocha UA (CLEAN/CATCH) PLANE TABLEMAN/MICRO I F IND.on 06-15-2022 Bilirubin Ql (U) Negative Normal NEGATIVE [facility] Comment on above: Performed By: #### U MICRO, UACSIND ####[facility] Nvbmyrsjne030[address] [place], [place] [address]Dr. Ricardo Rocha Clarity (U) CLEAR Normal CLEAR [facility] Comment on above: Performed By: #### U MICRO, UACSIND ####[facility] Okqilurnab404[address] [place], [place] [address]Dr. Ricardo Rocha Color (U) LT. YELLOW Normal YELLOW [facility] Comment on above: Performed By: #### U MICRO, UACSIND ####[facility] Xedzjsndgd7912[address] [place], [place] [address]Dr. Ricardo Rocha Glucose Ql (U) 250 mg/dl Abnormal NEGATIVE [facility] Comment on above: Performed By: #### U MICRO, UACSIND ####[facility] Memedpggfm258[address] [place], [place] [address]Dr. Ricardo Rocha Hemoglobin Ql (U) TRACE-LYSED Abnormal NEGATIVE [facility] Comment on above: Performed By: #### U MICRO, UACSIND ####[facility] Nrniltuxiy0930[address] [place], [place] [address]Dr. Ricardo Rocha Ketones Ql (U) 15 mg/dl Abnormal NEGATIVE [facility] Comment on above: Performed By: #### U MICRO, UACSIND ####[facility] Xcrlbyoxez9935[address] [place], [place] [address]Dr. Ricardo Rocha LEUKOCYTES Negative Normal NEGATIVE [facility] Comment on above: Performed By: #### U MICRO, UACSIND ####[facility] Ohkroyhxgw2468[address] [place], [place] [address]Dr. Ricardo Rocha Nitrite Ql (U) Negative Normal NEGATIVE [facility] Comment on above: Performed By: #### U MICRO, UACSIND ####[facility] Wkzxydmvqr1299[address] [place], [place] [address]Dr. Ricardo Rocha pH (U) 6.0 [pH] Normal 5-9 [facility] Comment on above: Performed By: #### U MICRO, UACSIND ####[facility] Fvdjbutttl9710[address] [place], [place] [address]Dr. Ricardo Rocha SPEC GRAVITY 1.010 Normal 1.005-<=1.02 5 [facility] Comment on above: Performed By: #### U MICRO, UACSIND ####[facility] Eixbdebnlq1504[address] [place], [place] [address]Dr. Ricardo Rocha UA PROTEIN Negative Normal NEGATIVE/ TRACE [facility] Comment on above: Performed By: #### U MICRO, UACSIND ####[facility] Oiytqfcnau3040[address] [place], [place] [address]Dr. Ricardo Rocah UR MICRO IND INDICATED Normal [facility] Comment on above: Performed By: #### U MICRO, UACSIND ####[facility] Nphacblzuh8627[address] [place], [place] [address]Dr. Ricardo Rocha Urobilinogen Qn (U) 0.2 {Madeleine'U}/dL Normal 0.2 - 1. 0 [facility] Comment on above: Performed By: #### U MICRO, UACSIND ####[facility] Kvf[address]zbznt[address] [place] [address]Dr. Ricardo Rocha URINE MICROSCOPIC ONLYon BACTERIA NONE SEEN Normal NONE SEEN [facility] Comment on above: Performed By: #### U MICRO, UACSIND ####[facility] Knxkxyscrn[address] [place] [address]Dr. Ricardo Rocha Bacteria identified Cx Nom (U) NOT INDICATED Normal [facility] Comment on above: Performed By: #### U MICRO, UACSIND ####[facility] Uoptizuzww[address] [place] [address]Dr. Ricardo Rocha CAST NONE SEEN Normal NONE SEEN [facility] Comment on above: Performed By: #### U MICRO, UACSIND ####[facility] Lqkgkoprar9[address] [place] [address]Dr. Ricardo Rocha Crystals LM Nom (Urine sed) NONE SEEN Normal NONE SEEN [facility] Comment on above: Performed By: #### U MICRO, UACSIND ####[facility] Skqwugunbl99[address] [place] [address]Dr. Ricardo Rocha Epithelial cells LM Ql (Urine sed) FEW Abnormal NONE SEEN /RARE [facility] Comment on above: Performed By: #### U MICRO, UACSIND ####[facility] Ktdekyhiza06[address] [place] [address]Dr. Ricardo Rocha MUCOUS NONE SEEN Normal NONE SEEN [facility] Comment on above: Performed By: #### U MICRO, UACSIND ####[facility] Jmhttmmobc1232[address] [place], [place] [address]Dr. Ricardo Rocha RBC 2-5 Abnormal 0-2 [facility] Comment on above: Performed By: #### U MICRO, UACSIND ####[facility] Jkqehjwjtc4627[address] [place], [place] [address]Dr. Ricardo Rocha WBC 2-5 Abnormal NONE SEEN [facility] Comment on above: Performed By: #### U MICRO, UACSIND ####[facility] Hhaxsogbqf[address] [place] [address]Dr. Ricardo Aj YEAST PRESENT Abnormal NONE SEEN [facility] Comment on above: Performed By: #### U MICRO, UACSIND ####[facility] Ksqoflrslb7181 [place] [id number]. Ricardo Rocha CBC AUTO DIFFon 06-14-2022 BASO # 0.0 103/ul Normal 0.0-0.1 [facility] Comment on above: Performed By: #### C BC ####[facility] Wpovluevhe723[address] [place], [place] [address]Dr. Ricardo Rocha Basophils/100 WBC (Bld) 0.4 % Normal 0.2-2.0 [facility] Comment on above: Performed By: #### C BC ####[facility] Kjxwqaumic059[address] [place], [place] [address]Dr. Ricardo Rocha EO # 0.0 103/ul Normal 0.0-0.7 [facility] Comment on above: Performed By: #### C BC ####[facility] Tvduhrprlm2901[address] [place], [place] [address]Dr. Ricardo Rocha Eosinophils/100 WBC (Bld) 0.4 % Critically low 0.9-7.0 [facility] Comment on above: Performed By: #### C BC ####[facility] Cwhlscwnzv350[address] [place], [place] [address]Dr. Ricardo Rocha Erythrocyte distribution width (RBC) [Ratio] 13.8 % Normal 11.0-15.0 [facility] Comment on above: Performed By: #### C BC ####[facility] Kfpmglhwwn246[address] [place], [place] [address]Dr. Ricardo Rocha Hematocrit (Bld) [Volume fraction] 26.2 % Critically low 36.0-48.0 [facility] Comment on above: Performed By: #### C BC ####[facility] Chdyhkibrq1360[address] [place], [place] [address]Dr. Ricardo Rocha Hemoglobin (Bld) [Mass/Vol] 8.3 g/dL Critically low 12.0-16.0 [facility] Comment on above: Performed By: #### C BC ####[facility] Osuzgpskrw2[address] [place] [address]DrIrina Rocha IG # 0.24 10e3/ul Critically high 0.00-0.03 [facility] Comment on above: Performed By: #### C BC ####[facility] Hkotgtanux1467 [place] [address]DrIrina Rocha IG % 2.3 % Critically high 0.0-0.5 [facility] Comment on above: Performed By: #### C BC ####[facility] Xdifrcbwcc4650[address] [place], [place] [address]DrIrina Rocha LYMPH # 1.1 103/ul Critically low 1.2-3.8 [facility] Comment on above: Performed By: #### C BC ####[facility] Rwnspsleor609[address] [place], [place] [address]DrIrina Rocha Lymphocytes/100 WBC (Bld) 10.2 % Critically low 20.5-60.0 [facility] Comment on above: Performed By: #### C BC ####[facility] Tupsoxqude5632[address] [place], [place] [address]DrIrina Rocha MANUAL DIFF REQ NO Normal [facility] Comment on above: Performed By: #### C BC ####[facility] Yxfqfphezj6208 [place] [address]DrIrina Rocha MCH (RBC) [Entitic mass] 25.5 pg Critically low 26.7-34.0 [facility] Comment on above: Performed By: #### C BC ####[facility] Wqvbllfjcc116[address] [place], [place] [address]DrIrina Rocha MCHC (RBC) [Mass/Vol] 31.7 g/dL Normal 29.9-35.2 [facility] Comment on above: Performed By: #### C BC ####[facility] Qsmnjtwgif6125[address] [place], [place] [address]DrIrina Rocha MCV (RBC) [Entitic vol] 80.6 fL Critically low 81.0-99.0 [facility] Comment on above: Performed By: #### C BC ####[facility] Djxjlcuyfb8313 [place] [address]Dr. Ricardo Rocha MONO # 0.7 103/ul Normal 0.3-0.8 [facility] Comment on above: Performed By: #### C BC ####[facility] Pvuqskpewm0827 [place] [address]Dr. Ricardo Rocha Monocytes/100 WBC (Bld) 6.7 % Normal 1.7-12.0 [facility] Comment on above: Performed By: #### C BC ####[facility] Nwtceczmpk3059[address] [place], [place] [address]Dr. Ricardo Rocha NEUT # 8.5 103/ul Critically high 1.4-6.5 [facility] Comment on above: Performed By: #### C BC ####[facility] Jhgyvpxzhr4038[address] [place], [place] [address]Dr. Nanomarcial Rocha Neutrophils/100 WBC (Bld) 80.0 % Critically high 43.0-75.0 [facility] Comment on above: Performed By: #### C BC ####[facility] Alkkewsykj624[address] [place], [place] [address]Dr. Nanomarcial Rocha Platelet mean volume (Bld) [Entitic vol] 12.1 fL Normal 9.5-13.5 [facility] Comment on above: Performed By: #### C BC ####[facility] Ikkeaqbvep8460[address] [place], [place] [address]Dr. Ricardo Rocha PLT 173 103/ul Normal 150-450 [facility] Comment on above: Performed By: #### C BC ####[facility] Iodbgtuzzn464[address] [place], [place] [address]Dr. Ricardo Rocha RBC 3.25 106/ul Critically low 4.20-5.40 [facility] Comment on above: Performed By: #### C BC ####[facility] Mgqtpplmdb6265[address] [place], [place] [address]Dr. Ricardo Rocha WBC 10.6 103/ul Normal 4.0-11.0 [facility] Comment on above: Performed By: #### C BC ####[facility] Qyzbxcthbc7066 [place] [address]Dr. Ricardo Rocha POINT OF CARE GLUCOSEon 05-22 Glucose [Mass/Vol] 237 mg/dL Critically high 74-106 [facility] Comment on above: Performed By: #### P OCGLUC ####[facility] Uakjgqudso9116 [place] [address]Dr. Ricardo Rocha Glucose [Mass/Vol] 296 mg/dL Critically high 74-106 [facility] Comment on above: Performed By: #### P OCGLUC ####[facility] Bkcbwmkqaj3900[address] [place], [place] [address]Dr. Ricardo Rocha Glucose [Mass/Vol] 406 mg/dL Critically high 74-106 [facility] Comment on above: Performed By: #### P OCGLUC ####[facility] Xubjadbcnm213[address] [place], [place] [address]Dr. Ricardo Rocha Glucose [Mass/Vol] 447 mg/dL Critically high 74-106 [facility] Comment on above: Performed By: #### P OCGLUC ####[facility] Nuhzxbpcnm357[address] [place], [place] [address]Dr. Ricardo Rocha Glucose [Mass/Vol] 319 mg/dL Critically high 74-106 [facility] Comment on above: Performed By: #### P OCGLUC ####[facility] Yimemodwip8369[address] [place], [place] [address]Dr. Ricardo Aj PROF 14(COMP METB)on 022 Albumin [Mass/Vol] 1.6 g/dL Critically low 3.4-5.0 [facility] Comment on above: Performed By: #### C MP ####[facility] Dkmoaciexv2165[address] [place], [place] [address]Dr. Ricardo Aj Albumin/Globulin [Mass ratio] 0.3 {ratio} Normal [facility] Comment on above: Performed By: #### C MP ####[facility] Iwgjyuofzm201[address] [place], [place] [address]Dr. Ricardo Rocha ALP [Catalytic activity/Vol] 201 U/L Critically high 46-116 [facility] Comment on above: Performed By: #### C MP ####[facility] Sjswflqavu47[address] [place] [address]Dr. Ricardo Rocha ALT [Catalytic activity/Vol] 23 U/L Normal 14-59 [facility] Comment on above: Performed By: #### C MP ####[facility] Ulmeuhdify8929[address] [place], [place] [address]Dr. Ricardo Aj Anion gap [Moles/Vol] 16.0 mmol/L Normal [facility] Comment on above: Performed By: #### C MP ####[facility] Vevvzvsznu90[address] [place], [place] [address]Dr. Ricardo Aj AST [Catalytic activity/Vol] 21 U/L Normal 15-37 [facility] Comment on above: Performed By: #### C MP ####[facility] Kyiefseuye11[address] [place], [place] [address]Dr. Ricardo Aj Bilirubin [Mass/Vol] 0.4 mg/dL Normal 0.2-1.0 [facility] Comment on above: Performed By: #### C MP ####[facility] Vyafmfkhmo7750[address] [place], [place] [address]Dr. Ricardo Rocha Calcium [Mass/Vol] 7.6 mg/dL Critically low 8.5-10.1 [facility] Comment on above: Performed By: #### C MP ####[facility] Kinjrytntv1580[address] [place], [place] [address]Dr. Nanomarcial Rocha Chloride [Moles/Vol] 105 mmol/L Normal 98-107 [facility] Comment on above: Performed By: #### C MP ####[facility] Afqdgtpkyx5216[address] [place], [place] [address]Dr. Ricardo Rocha CO2 [Moles/Vol] 17.3 mmol/L Critically low 21.0-32.0 [facility] Comment on above: Performed By: #### C MP ####[facility] Bpqcpbozpx0128[address] [place], [place] [address]DrIrina Rocha Creatinine [Mass/Vol] 1.54 mg/dL Critically high 0.55-1.02 [facility] Comment on above: Performed By: #### C MP ####[facility] Ywpzprwzra27[address] [place] [address]Dr. Nanomarcial Aj EGFR-AF CUBAN 41 mL/min/1.73m2 Critically low >=60 [facility] Comment on above: Performed By: #### C MP ####[facility] Hvvvnlaohe79[address] [place] [address]Dr. Ricardo Rocha EGFR-NON AF CUBAN 34 mL/min/1.73m2 Critically low >=60 [facility] Comment on above: Performed By: #### C MP ####[facility] Eluduroife713[address] [place], [place] [address]Dr. Ricardo Rocha Globulin (S) [Mass/Vol] 4.7 g/dL Normal [facility] Comment on above: Performed By: #### C MP ####[facility] Knmccatetm1639 [place] [address]Dr. Ricardo Rocha Glucose [Mass/Vol] 277 mg/dL Critically high 74-106 [facility] Comment on above: Performed By: #### C MP ####[facility] Glbgazrkka5703 [place] [address]DrIrina Rocha Potassium [Moles/Vol] 3.3 mmol/L Critically low 3.5-5.1 [facility] Comment on above: Performed By: #### C MP ####[facility] Jzihtqtset3214 [place] [address]Dr. Ricardo Rocha Protein [Mass/Vol] 6.3 g/dL Critically low 6.4-8.2 Th [facility] Comment on above: Performed By: #### C MP ####[facility] Ijtzdkqkov756[address] [place], [place] [address]Dr. Ricardo Rocha Sodium [Moles/Vol] 135 mmol/L Critically low 136-145 Th [facility] Comment on above: Performed By: #### C MP ####[facility] Vuhpihrifr105[address] [place], [place] [address]Dr. Ricardo Rocha Urea nitrogen [Mass/Vol] 29.0 mg/dL Critically high 7.0-18.0 [facility] Comment on above: Performed By: #### C MP ####[facility] Xwwqtuyffl1623[address] [place], [place] [address]Dr. Ricardo Rocha Urea nitrogen/Creatinine [Mass ratio] 18.8 mg/mg Normal [facility] Comment on above: Performed By: #### C MP ####[facility] Haspnhrayt773[address] [place], [place] [address]Dr. Ricardo Rocha CBC AUTO DIFFon 06-13-2022 BASO # 0.0 103/ul Normal 0.0-0.1 [facility] Comment on above: Performed By: #### C BC ####[facility] Jlobdwwkcj4713[address] [place], [place] [address]Dr. Ricardo Aj Basophils/100 WBC (Bld) 0.2 % Normal 0.2-2.0 [facility] Comment on above: Performed By: #### C BC ####[facility] Cweerpqpln2333[address] [place], [place] [address]Dr. Ricardo Rocha EO # 0.1 103/ul Normal 0.0-0.7 [facility] Comment on above: Performed By: #### C BC ####[facility] Coolflvvok834[address] [place], [place] [address]Dr. Ricardo Aj Eosinophils/100 WBC (Bld) 0.6 % Critically low 0.9-7.0 [facility] Comment on above: Performed By: #### C BC ####[facility] Iofdjvszvj4540[address] [place], [place] [address]Dr. Ricardo Rocha Erythrocyte distribution width (RBC) [Ratio] 14.2 % Normal 11.0-15.0 [facility] Comment on above: Performed By: #### C BC ####[facility] Grayzchbby48[address] [place], [place] [address]Dr. Ricardo Rocha Hematocrit (Bld) [Volume fraction] 27.9 % Critically low 36.0-48.0 [facility] [facility] Comment on above: Performed By: #### C BC ####[facility] Koursgnjkc77[address] [place] [phone]. Ricardo Rocha Hemoglobin (Bld) [Mass/Vol] 8.6 g/dL Critically low 12.0-16.0 [facility] Comment on above: Performed By: #### C BC ####[facility] Cnhucjpyho3055 [place] [address]Dr. Ricardo Rocha IG # 0.08 10e3/ul Critically high 0.00-0.03 [facility] Comment on above: Performed By: #### C BC ####[facility] Vdolxamdks8407 [place] [address]Dr. Ricardo Rocha IG % 0.8 % Critically high 0.0-0.5 [facility] Comment on above: Performed By: #### C BC ####[facility] Bzzehfckjt[address] [place] [address]Dr. Ricardo Rocha LYMPH # 0.9 103/ul Critically low 1.2-3.8 [facility] Comment on above: Performed By: #### C BC ####[facility] Fkbskkcavt48[address] [place] [address]Dr. Ricardo Rocha Lymphocytes/100 WBC (Bld) 8.9 % Critically low 20.5-60.0 [facility] Comment on above: Performed By: #### C BC ####[facility] Eezjthdngn[address] [place] [address]Dr. Ricardo Rocha MANUAL DIFF REQ NO Normal [facility] Comment on above: Performed By: #### C BC ####[facility] Htakspoajr6[address] [place] [address]Dr. Ricardo Rocha MCH (RBC) [Entitic mass] 25.1 pg Critically low 26.7-34.0 [facility] Comment on above: Performed By: #### C BC ####[facility] Rpvnpnfluw[address] [place], [place] [address]Dr. Ricardo Rocha MCHC (RBC) [Mass/Vol] 30.8 g/dL Normal 29.9-35.2 [facility] Comment on above: Performed By: #### C BC ####[facility] Lxgilbclab8835 [place] [address]Dr. Ricardo Rocha MCV (RBC) [Entitic vol] 81.6 fL Normal 81.0-99.0 [facility] Comment on above: Performed By: #### C BC ####[facility] Kwawwohuwv6755 [place] [address]Dr. Ricardo Rocha MONO # 0.6 103/ul Normal 0.3-0.8 [facility] Comment on above: Performed By: #### C BC ####[facility] Jdzbuerxtr2301 [place] [address]Dr. Ricardo Rocha Monocytes/100 WBC (Bld) 5.7 % Normal 1.7-12.0 [facility] Comment on above: Performed By: #### C BC ####[facility] Pcqqigvsbr5932 [place] [address]Dr. Ricardo Rocha NEUT # 8.4 103/ul Critically high 1.4-6.5 [facility] Comment on above: Performed By: #### C BC ####[facility] Ooievudmle1613 [place] [address]Dr. Ricardo Rocha Neutrophils/100 WBC (Bld) 83.8 % Critically high 43.0-75.0 The [facility] Comment on above: Performed By: #### C BC ####[facility] Yrwmdteytq6894 [place] [phone]. Ricardo Rocha Platelet mean volume (Bld) [Entitic vol] 12.1 fL Normal 9.5-13.5 [facility] Comment on above: Performed By: #### C BC ####[facility] Bmeonjfmkm3933 [place] [address]Dr. Ricardo Rocha PLT 149 103/ul Critically low 150-450 [facility] Comment on above: Performed By: #### C BC ####[facility] Apzlcincie7824 [place] [address]Dr. Ricardo Rocha RBC 3.42 106/ul Critically low 4.20-5.40 [facility] Comment on above: Performed By: #### C BC ####[facility] Tnauanepgx5772 [place] [phone]. Ricardo Rocha WBC 10.0 103/ul Normal 4.0-11.0 [facility] Comment on above: Performed By: #### C BC ####[facility] Nqvmzcoctc199[address] [place], [place] [address]Dr. Ricardo Rocha CULTURE OTHERon 06-13-2022 CULTURE OTHER Normal [facility] Comment on above: Performed By: #### O THCX ####[facility] Wobrjfsima312[address] [place], [place] [address]Dr. Ricardo Rocha CULTURE OTHER Normal [facility] Comment on above: Performed By: #### O THCX ####[facility] Rflcmjrzno30[address] [place], [place] [address]Dr. Ricardo Rocha CULTURE OTHER Normal [facility] Comment on above: Performed By: #### O THCX ####[facility] Tneofiyrtm264[address] [place], [place] [address]Dr. Ricardo Rocha GI PANEL (PCR)on 06-13-2022 Adenovirus F 40/41 Not detected Normal NOT DETECTED [facility] Comment on above: Performed By: #### G IPANEL ####[facility] Bwtwaxzpwn27[address] [place], [place] [address]Dr. Ricardo Rocha Astrovirus Not detected Normal NOT DETECTED [facility] Comment on above: Performed By: #### G IPANEL ####[facility] Dcwgppfmdm935[address] [place], [place] [address]Dr. Nanomarcial Aj C. Diff toxin A/B Not detected Normal NOT DETECTED [facility] Comment on above: Performed By: #### G IPANEL ####[facility] Oxfycyuivp8999[address] [place], [place] [address]Dr. Ricardo Rocha Campylobacter Not detected Normal NOT DETECTED [facility] Comment on above: Performed By: #### G IPANEL ####[facility] Wbqyldzkkj638[address] [place], [place] [address]Dr. Nanomarcial Aj Cryptosporidium Not detected Normal NOT DETECTED [facility] Comment on above: Performed By: #### G IPANEL ####[facility] Ghrhyuenkv733[address] [place], [place] [address]Dr. Ricardo Rocha Cyclos. Cayetanensis Not detected Normal NOT DETECTED [facility] Comment on above: Performed By: #### G IPANEL ####[facility] Kazltrypmj776[address] [place], [place] [address]Dr. Ricardo Rocha E. Coli O157 Not Applicable Normal Not Applicable [facility] Comment on above: Performed By: #### G IPANEL ####[facility] Zyrzabfafg458[address] [place], [place] [address]Dr. Ricardo Rocha E. histolytica Not detected Normal NOT DETECTED The [facility] Comment on above: Performed By: #### G IPANEL ####[facility] Iisgipnhvh764[address] [place], [place] [address]Dr. Ricardo Rocha EAEC Not detected Normal NOT DETECTED [facility] Comment on above: Performed By: #### G IPANEL ####[facility] Omyhajegem200[address] [place], [place] [address]Dr. Ricardo Rocha EIEC Not detected Normal NOT DETECTED [facility] Comment on above: Performed By: #### G IPANEL ####[facility] Lozkpknogy1975[address] [place], [place] [address]Dr. Ricardo Rocha EPEC Not detected Normal NOT DETECTED [facility] Comment on above: Performed By: #### G IPANEL ####[facility] Bliivolsyh8550[address] [place], [place] [address]Dr. Ricardo Rocha ETEC Not detected Normal NOT DETECTED [facility] Comment on above: Performed By: #### G IPANEL ####[facility] Verppsxipk601[address] [place], [place] [address]Dr. Ricardo Rocha G. Lamblia Not detected Normal NOT DETECTED [facility] Comment on above: Performed By: #### G IPANEL ####[facility] Hcvlurhflb37[address] [place], [place] [address]Dr. Ricardo Rocha GIPANEL CONTROLS PASSED Normal [facility] Comment on above: Performed By: #### G IPANEL ####[facility] Qxkiocsrtl704779 [address] [place], [place] [address]Dr. Ricardo MARTINEZ [facility] HEADER GI PANEL BACTERIA Normal [facility] Comment on above: Performed By: #### G IPANEL ####[facility] Teuscibczv4140[address] [place], [place] [address]Dr. Ricardo MARTINEZHD ECOLI GI PANEL DIARRHEAGEN IC E.COLI / SHIGELLA Normal [facility] Comment on above: Performed By: #### G IPANEL ####[facility] Hvfjgbckjc427[address] [place], [place] [address]Dr. Ricardo MARTINEZHD INFO SEE BELOW Normal [facility] Comment on above: Result Comment: EAEC - Enteroaggregative E. Coli EPEC- Enteropathogenic E. Coli ETEC- Enterotoxigenic E. Coli lt/st STEC- Shigella-like toxin-producing E. Coli stx1/stx2 EIEC- Shigella/Enteroinvasive E. Coli Performed By: #### G IPANEL ####[facility] Jrbxqgoeop3811[address] [place], [place] [address]Dr. Ricardo MARTINEZHD PARASITES GI PANEL PARASITES Normal [facility] Comment on above: Performed By: #### G IPANEL ####[facility] Wfkgoemuur1717[address] [place], [place] [address]Dr. Ricardo MARTINEZHD VIRUS GI PANEL VIRUSES Normal [facility] Comment on above: Performed By: #### G IPANEL ####[facility] Jkvkgraict529[address] [place], [place] [address]Dr. Ricardo Rocha Norovirus GI/GII Not detected Normal NOT DETECTED [facility] Comment on above: Performed By: #### G IPANEL ####[facility] Elhcespubj8295[address] [place], [place] [address]Dr. Ricardo Rocha P. Shigelloides Not detected Normal NOT DETECTED [facility] Comment on above: Performed By: #### G IPANEL ####[facility] Stkgollckr3030[address] [place], [place] [address]Dr. Ricardo Rocha Rotavirus A Not detected Normal NOT DETECTED [facility] Comment on above: Performed By: #### G IPANEL ####[facility] Aycjqbaavf670[address] [place], [place] [address]Dr. Ricardo Rocha Salmonella Not detected Normal NOT DETECTED [facility] Comment on above: Performed By: #### G IPANEL ####[facility] Ueonfojaae760[address] [place], [place] [address]Dr. Ricardo Rocha Sapovirus Not detected Normal NOT DETECTED [facility] Comment on above: Performed By: #### G IPANEL ####[facility] Lnxjtllpou280[address] [place], [place] [address]Dr. Ricardo Rocha STEC Not detected Normal NOT DETECTED [facility] Comment on above: Performed By: #### G IPANEL ####[facility] Yamygwfmnv1420[address] [place], [place] [address]Dr. Ricardo Rocha Vibrio Not detected Normal NOT DETECTED [facility] Comment on above: Performed By: #### G IPANEL ####[facility] Rovinbbons216[address] [place], [place] [address]Dr. Ricardo Rocha Vibrio Cholera Not detected Normal NOT DETECTED [facility] Comment on above: Performed By: #### G IPANEL ####[facility] Mdevxaofpw5605[address] [place], [place] [address]Dr. Ricardo Rocha Y. Enterocolitica Not detected Normal NOT DETECTED [facility] Comment on above: Performed By: #### G IPANEL ####[facility] Mwawsjumxo8[address] [place], [place] [address]Dr. Ricardo Rocha IRON AND TIBCon 06-13-2022 % SATURATION 19.9 % Normal [facility] Comment on above: Performed By: #### F ETIBC, B12FOL ####[facility] Sxybgjeaji23[address] [place], [place] [address]Dr. Ricardo Rocha Iron [Mass/Vol] 75.0 ug/dL Normal 50.0-170.0 [facility] Comment on above: Performed By: #### F ETIBC, B12FOL ####[facility] Hknizsydvd[address] [place], [place] [address]Dr. Ricardo Rocha TIBC DIRECT 376.0 ug/dL Normal 250.0-450.0 [facility] Comment on above: Performed By: #### F ETIBC, B12FOL ####[facility] Bzvvqvvoma3198 [place] [phone]. Ricardo Rocha POINT OF CARE GLUCOSEon 05-22 Glucose [Mass/Vol] 238 mg/dL Critically high -106 [facility] Comment on above: Performed By: #### P OCGLUC ####[facility] Ojpdgjyhet8292 [place] [address]Dr. Ricardo Rocha Glucose [Mass/Vol] 146 mg/dL Critically high -106 [facility] Comment on above: Performed By: #### P OCGLUC ####[facility] Wuvslbyfdh7669 [place] [address]Dr. Nanomarcial Rocha Glucose [Mass/Vol] 143 mg/dL Critically high -106 [facility] Comment on above: Performed By: #### P OCGLUC ####[facility] Oayhbstocs9548 [place] [address]Dr. Nanomarcial Rocha Glucose [Mass/Vol] 205 mg/dL Critically high -106 [facility] Comment on above: Performed By: #### P OCGLUC ####[facility] Wpjsffwaaq8662 [place] [address]Dr. Ricardo Rocha Glucose [Mass/Vol] 227 mg/dL Critically high -106 [facility] Comment on above: Performed By: #### P OCGLUC ####[facility] Prftludhdt76[address] [place] [address]Dr. Ricardo Rocha PROF 14(COMP METB)on 022 Albumin [Mass/Vol] 1.5 g/dL Critically low 3.4-5.0 Th [facility] Comment on above: Performed By: #### C MP ####[facility] Upknixozzn8722 [place] [address]Dr. Ricardo Rocha Albumin/Globulin [Mass ratio] 0.3 {ratio} Normal [facility] Comment on above: Performed By: #### C MP ####[facility] Epgfmknwiv9570 [place] [address]Dr. Ricardo Rocha ALP [Catalytic activity/Vol] 136 U/L Critically high 46-116 [facility] Comment on above: Performed By: #### C MP ####[facility] Haaunatyac6929 [place] [address]Dr. Ricardo Rocha ALT [Catalytic activity/Vol] 18 U/L Normal 14-59 [facility] Comment on above: Performed By: #### C MP ####[facility] Kbgaidilmx4578 [place] [address]Dr. Ricardo Rocha Anion gap [Moles/Vol] 10.2 mmol/L Normal [facility] Comment on above: Performed By: #### C MP ####[facility] Hkjohqotnn9938 [place] [address]Dr. Ricardo Aj AST [Catalytic activity/Vol] 37 U/L Normal 15-37 [facility] Comment on above: Performed By: #### C MP ####[facility] Dmkfwmabdh489[address] [place], [place] [address]Dr. Nanomarcial Rocha Bilirubin [Mass/Vol] 0.4 mg/dL Normal 0.2-1.0 [facility] Comment on above: Performed By: #### C MP ####[facility] Nepsfoenqp8[address] [place], [place] [address]Dr. Ricardo Aj Calcium [Mass/Vol] 8.0 mg/dL Critically low 8.5-10.1 Th [facility] Comment on above: Performed By: #### C MP ####[facility] Jjwcbipxlv7[address] [place], [place] [address]Dr. Ricardo Rocha Chloride [Moles/Vol] 110 mmol/L Critically high 98-107 [facility] Comment on above: Performed By: #### C MP ####[facility] Qsnhpbjktw8461 [place] [address]Dr. Ricardo Aj CO2 [Moles/Vol] 18.2 mmol/L Critically low 21.0-32.0 [facility] Comment on above: Performed By: #### C MP ####[facility] Qfhqxkbqjw524[address] [place], [place] [address]Dr. Ricardo Rocha Creatinine [Mass/Vol] 1.76 mg/dL Critically high 0.55-1.02 [facility] Comment on above: Performed By: #### C MP ####[facility] Ptormosjzh9958 [place] [address]Dr. Ricardo Aj EGFR-AF CUBAN 35 mL/min/1.73m2 Critically low >=60 [facility] Comment on above: Performed By: #### C MP ####[facility] Famjbovcrb2563 [place] [address]Dr. Ricardo Aj EGFR-NON AF CUBAN 29 mL/min/1.73m2 Critically low >=60 [facility] Comment on above: Performed By: #### C MP ####[facility] Cltgaewvje9644 [place] [address]Dr. Ricardo Aj Globulin (S) [Mass/Vol] 4.7 g/dL Normal [facility] Comment on above: Performed By: #### C MP ####[facility] Zstarukwyw6190 [place] [address]Dr. Ricardo Rocha Glucose [Mass/Vol] 223 mg/dL Critically high 74-106 [facility] Comment on above: Performed By: #### C MP ####[facility] Twnsildsfi0213 [place] [address]Dr. Ricardo Rocha Potassium [Moles/Vol] 3.4 mmol/L Critically low 3.5-5.1 [facility] Comment on above: Performed By: #### C MP ####[facility] Vwiwrmbfct5048 [place] [address]Dr. Ricardo Rocha Protein [Mass/Vol] 6.2 g/dL Critically low 6.4-8.2 Th [facility] Comment on above: Performed By: #### C MP ####[facility] Spvupkivfz1976 [place] [address]Dr. Ricardo Rocha Sodium [Moles/Vol] 135 mmol/L Critically low 136-145 Th [facility] Comment on above: Performed By: #### C MP ####[facility] Dlolhznixo3521 [place] [address]Dr. Ricardo Rocha Urea nitrogen [Mass/Vol] 33.0 mg/dL Critically high 7.0-18.0 [facility] Comment on above: Performed By: #### C MP ####[facility] Nvgcnumejv9504 [place] [address]Dr. Ricardo Rocha Urea nitrogen/Creatinine [Mass ratio] 18.8 mg/mg Normal [facility] Comment on above: Performed By: #### C MP ####[facility] Gbdezzkqdu3287 [place] [address]Dr. Ricardo Rocha VANCOMYCIN TROUGHon 06-13-20 22 VANCOMYCIN TROUGH 15.2 ug/ml Normal 5.0-20.0 [facility] Comment on above: Performed By: #### V ANCT ####[facility] Mwkipdtxsa8[address] [place], [place] [address]Dr. Ricardo Rocha VIT B12 AND FOLATEon 022 Cobalamin (Vitamin B12) [Mass/Vol] 874.0 pg/mL Normal 193.0-986.0 [facility] Comment on above: Performed By: #### F ETIBC, B12FOL ####[facility] Hxzqcjhokw1073 [place] [address]Dr. Ricardo Rocha FOLATE 6.60 ng/mL Critically low 8.60-58.90 [facility] Comment on above: Performed By: #### F ETIBC, B12FOL ####[facility] Ymycckndqp9476 [place] [address]Dr. Ricardo Rocha XR FOOT LT MIN 3 VIEWSon XR FOOT LT MIN 3 VIEWS Normal [facility] CBC W MANUAL DIFFon 06-12-20 22 ATYPICAL LYMPH # Normal [facility] Comment on above: Performed By: #### C DWAINE ####[facility] Ihuctbtxer34[address] [place] [address]Dr. Ricardo Rocha ATYPICAL LYMPH % Normal [facility] Comment on above: Performed By: #### C BCRED ####[facility] Coxdgydksx[address] [place] [address]Dr. Ricardo Rocha BAND # 1.9 103/ul Critically high 0.0-0.3 [facility] Comment on above: Performed By: #### C DWAINE ####[facility] Fgylmubgbr4831 [place] [phone]. Ricardo Rocha BAND % 17 % Critically high 0-5 [facility] Comment on above: Performed By: #### C BCMAN ####[facility] Ctobcjwpwg2510 [place] [address]Dr. Ricardo Rocha BASOM # 0.00 103/ul Normal 0.00-0.10 [facility] Comment on above: Performed By: #### C BCMAN ####[facility] Wpzijreost28[address] [place] [address]Dr. Ricardo Rocha BASOM % 0.0 % Critically low 0.2-2.0 [facility] Comment on above: Performed By: #### C BCMAN ####[facility] Orvdohztfa9278 [place] [address]Dr. Ricardo Rocha BLAST # Normal [facility] Comment on above: Performed By: #### C BCRED ####[facility] Akevdtuaan11[address] [place] [address]Dr. Yimarcial Rocha BLAST % Normal [facility] Comment on above: Performed By: #### C BCRED ####[facility] Jcrnvyayqi0763 [place] [address]Dr. Ricardo Rocha CORRECTED WBC Normal 4.0-11.0 [facility] Comment on above: Performed By: #### C BCRED ####[facility] Ikkljmxuhs3089 [place] [address]Dr. Ricardo Rocha EOS # 0.00 103/ul Normal 0.00-0.70 [facility] Comment on above: Performed By: #### C BCMAN ####[facility] Qwojdbmotc9308 [place] [address]Dr. Ricardo Rocha EOS% 0.0 % Critically low 0.9-7.0 [facility] Comment on above: Performed By: #### C BCMAN ####[facility] Oktvsdnrsa9596 [place] [address]Dr. Ricardo Rocha HCT 28.0 % Critically low 36.0-48.0 [facility] Comment on above: Performed By: #### C DWAINE ####[facility] Srbdthissh9193 [place], [place] [address]Dp. Ricardo Rocha HGB 8.6 g/dl Critically low 12.0-16.0 [facility] Comment on above: Performed By: #### C DWAINE ####[facility] Zdecffulwl6424 [place], [place] [address]Sq. Ricardo Rocha HYPOCHROMASIA SLIGHT Normal [facility] Comment on above: Performed By: #### C DWAINE ####[facility] Dkmtqxctan1335 [place], [place] [address]Pe. Ricardo Rocha LYMPHM # 0.77 103/ul Critically low 1.20-3.80 [facility] Comment on above: Performed By: #### C DWAINE ####[facility] Kfqdwsurfp4509 [place] [phone]. Ricardo Rocha LYMPHM% 7.0 % Critically low 20.5-60.0 [facility] Comment on above: Performed By: #### C DWAINE ####[facility] Uijrkmfbnz4535 [place], [place] [address]Gb. Ricardo Rocha MCH 25.1 pg Critically low 26.7-34.0 [facility] Comment on above: Performed By: #### C DWAINE ####[facility] Iuwccwcelo9298 [place], [place] [address]Rx. Ricardo Rocha MCHC 30.7 g/dl Normal 29.9-35.2 [facility] Comment on above: Performed By: #### C DWAINE ####[facility] Axddajfwgu1777 [place], [place] [address]Pz. Ricardo Rocha MCV 81.9 fL Normal 81.0-99.0 [facility] Comment on above: Performed By: #### C DWAINE ####[facility] Kebkdyzhcp4888 [place] [phone]. Ricardo Rocha METAMYELOCYTE # Normal [facility] Comment on above: Performed By: #### Esteban ISIDRO ####[facility] Isgwhyhput9392 [place] [address]Dr. Yilan Rocha METAMYELOCYTE % Normal [facility] Comment on above: Performed By: #### C DWAINE ####[facility] Xfkyihltam8881 [place] [address]Dr. Ricardo Rocha MONOM# 0.11 103/ul Critically low 0.30-0.80 [facility] Comment on above: Performed By: #### C DWAINE ####[facility] Vymbnignzx8832 [place] [address]Dr. Ricardo Rocha MONOM% 1.0 % Critically low 1.7-12.0 [facility] Comment on above: Performed By: #### C DWAINE ####[facility] Kvxnwbeqdq6561 [place] [address]Dr. Ricardo Rocha MPV 12.6 fL Normal 9.5-13.5 [facility] Comment on above: Performed By: #### C DWAINE ####[facility] [address]tmnyqhndk[address] [place], [place] [address]Dr. Ricardo Rocha MYELOCYTE # Normal [facility] Comment on above: Performed By: #### C DWAINE ####[facility] Fjypofzdrw9095 [place] [address]Dr. Ricardo Rocha MYELOCYTE % Normal [facility] Comment on above: Performed By: #### C DWAINE ####[facility] Jzgmwxhgmr2332 [place] [address]Dr. Ricardo Rocha NRBC Normal [facility] Comment on above: Performed By: #### C DWAINE ####[facility] Qnznypusgp7224 [place] [address]Dr. Ricardo Rocha PLT 140 103/ul Critically low 150-450 [facility] Comment on above: Performed By: #### C DWAINE ####[facility] Tixaellwjf4503 [place] [address]Dr. Ricardo Rocha RBC 3.42 106/ul Critically low 4.20-5.40 [facility] Comment on above: Performed By: #### C DWAINE ####[facility] Lgbzoyxruu9236 [place] [phone]. Ricardo Rocha RDW 13.7 % Normal 11.0-15.0 [facility] Comment on above: Performed By: #### C DWAINE ####[facility] Xvwczlwqxo6142 [place] [address]Dr. Ricardo Rocha SEG # 8.25 103/ul Critically high 1.40-6.50 [facility] Comment on above: Performed By: #### C BCMAN ####[facility] Femccsblvo[address] [place] [address]Dr. Ricardo Rocha SEG % 75.0 % Normal 43.0-75.0 [facility] Comment on above: Performed By: #### C BCMAN ####[facility] Rayntajpxj[address] [place] [address]Dr. Ricardo Rocha WBC 11.0 103/ul Normal 4.0-11.0 [facility] Comment on above: Performed By: #### C BCRED ####[facility] Sdmapgmtwz6[address] [place] [address]Dr. Ricardo Rocha POINT OF CARE GLUCOSEon 10-2 Glucose [Mass/Vol] 200 mg/dL Critically high 74-106 [facility] Comment on above: Performed By: #### P OCGLUC ####[facility] Sxjrwwucjr92[address] [place] [address]Dr. Ricardo Aj Glucose [Mass/Vol] 165 mg/dL Critically high 74-106 [facility] Comment on above: Performed By: #### P OCGLUC ####[facility] Jcnqwklwrr1385 [place] [address]Dr. Ricardo Rocha Glucose [Mass/Vol] 152 mg/dL Critically high 74-106 [facility] Comment on above: Performed By: #### P OCGLUC ####[facility] Znwnxpaieo0587 [place] [address]Dr. Ricardo Rocha Glucose [Mass/Vol] 154 mg/dL Critically high 74-106 [facility] Comment on above: Performed By: #### P OCGLUC ####[facility] Mlwluhjoss[address] [place], [place] [address]Dr. Ricardo Rocha PROF 14(COMP METB)on 06-12- 022 Albumin [Mass/Vol] 1.9 g/dL Critically low 3.4-5.0 [facility] Comment on above: Performed By: #### C MP ####[facility] Wyrhjnqhvs78[address] [place] [address]Dr. Ricardo Rocha Albumin/Globulin [Mass ratio] 0.4 {ratio} Normal [facility] Comment on above: Performed By: #### C MP ####[facility] Kfvdndeqpj23[address] [place], [place] [address]Dr. Ricardo Rocha ALP [Catalytic activity/Vol] 68 U/L Normal 46-116 [facility] Comment on above: Performed By: #### C MP ####[facility] Jwsqbtxjmg22[address] [place], [place] [address]Dr. Ricardo Rocha ALT [Catalytic activity/Vol] 16 U/L Normal 14-59 [facility] Comment on above: Performed By: #### C MP ####[facility] Izruwnhkyk7517[address] [place], [place] [address]DrIrina Rocha Anion gap [Moles/Vol] 15.1 mmol/L Normal [facility] Comment on above: Performed By: #### C MP ####[facility] Tcxqaiqblh338[address] [place], [place] [address]DrIrina Rocha AST [Catalytic activity/Vol] 26 U/L Normal 15-37 [facility] Comment on above: Performed By: #### C MP ####[facility] Pmtosgsend4929[address] [place], [place] [address]DrIrina Rocha Bilirubin [Mass/Vol] 0.3 mg/dL Normal 0.2-1.0 [facility] Comment on above: Performed By: #### C MP ####[facility] Jmgqynajpn178[address] [place], [place] [address]DrIrina Rocha Calcium [Mass/Vol] 8.0 mg/dL Critically low 8.5-10.1 [facility] Comment on above: Performed By: #### C MP ####[facility] Orxdiclvms5715[address] [place], [place] [address]Dr. Ricardo Aj Chloride [Moles/Vol] 110 mmol/L Critically high 98-107 [facility] Comment on above: Performed By: #### C MP ####[facility] Gqkxgckulm9020 [place] [address]Dr. Ricardo Rocha CO2 [Moles/Vol] 18.0 mmol/L Critically low 21.0-32.0 [facility] Comment on above: Performed By: #### C MP ####[facility] Wcoyxfdsvn7139[address] [place], [place] [address]Dr. Ricardo Aj Creatinine [Mass/Vol] 1.97 mg/dL Critically high 0.55-1.02 [facility] Comment on above: Performed By: #### C MP ####[facility] Zfxeuczgki828[address] [place], [place] [address]Dr. Ricardo Aj EGFR-AF CUBAN 31 mL/min/1.73m2 Critically low >=60 [facility] Comment on above: Performed By: #### C MP ####[facility] Jucmmsdoon039[address] [place], [place] [address]Dr. Ricardo Aj EGFR-NON AF CUBAN 26 mL/min/1.73m2 Critically low >=60 [facility] Comment on above: Performed By: #### C MP ####[facility] Atvezatkmf012[address] [place], [place] [address]Dr. Nanomarcial Rocha Globulin (S) [Mass/Vol] 5.2 g/dL Normal [facility] Comment on above: Performed By: #### C MP ####[facility] Jdljmrhsxw7625[address] [place], [place] [address]Dr. Nanomarcial Rocha Glucose [Mass/Vol] 146 mg/dL Critically high 74-106 [facility] Comment on above: Performed By: #### C MP ####[facility] Cgwbujdzkj813[address] [place], [place] [address]Dr. Ricardo Aj Potassium [Moles/Vol] 3.1 mmol/L Critically low 3.5-5.1 [facility] Comment on above: Performed By: #### C MP ####[facility] Wqjeqhkodl996[address] [place], [place] [address]Dr. Ricardo Rocha Protein [Mass/Vol] 7.1 g/dL Normal 6.4-8.2 [facility] Comment on above: Performed By: #### C MP ####[facility] Emlyuxmmzx7948 [place] [address]Dr. Ricardo Rocha Sodium [Moles/Vol] 140 mmol/L Normal 136-145 [facility] Comment on above: Performed By: #### C MP ####[facility] Jdzurbylkn2036 [place] [address]Dr. Ricardo Aj Urea nitrogen [Mass/Vol] 30.0 mg/dL Critically high 7.0-18.0 [facility] Comment on above: Performed By: #### C MP ####[facility] Qpbpkjdigj2385[address] [place], [place] [address]Dr. Ricardo Aj Urea nitrogen/Creatinine [Mass ratio] 15.2 mg/mg Normal [facility] Comment on above: Performed By: #### C MP ####[facility] Uwfpdbmefw505[address] [place], [place] [address]Dr. Ricardo Aj CBC W MANUAL DIFFon 06-11-20 22 ATYPICAL LYMPH # Normal [facility] Comment on above: Performed By: #### C BCMAN ####[facility] Mpzckmhlgd5[address] [place], [place] [address]Dr. Ricardo Aj ATYPICAL LYMPH % Normal [facility] Comment on above: Performed By: #### C BCMAN ####[facility] Nvfkjbtllu2343 [place] [address]Dr. Ricardo Rocha BAND # 1.1 103/ul Critically high 0.0-0.3 [facility] Comment on above: Performed By: #### C BCMAN ####[facility] Qsezzewffb699[address] [place], [place] [address]Dr. Ricardo Rocha BAND % 12 % Critically high 0-5 [facility] Comment on above: Performed By: #### C BCMAN ####[facility] Ynwvyptgaf2442 [place] [address]Dr. Ricardo Rocha BASOM # 0.00 103/ul Normal 0.00-0.10 [facility] Comment on above: Performed By: #### C DWAINE ####[facility] Ckbvyjlbhi7838 [place] [address]Dr. Ricardo Rocha BASOM % 0.0 % Critically low 0.2-2.0 [facility] Comment on above: Performed By: #### C DWAINE ####[facility] Jdnshazfcq6995 [place] [address]Dr. Ricardo Rocha BLAST # Normal [facility] Comment on above: Performed By: #### C DWAINE ####[facility] Kqievvglzq6438 [place] [address]Dr. Ricardo Rocha BLAST % Normal [facility] Comment on above: Performed By: #### C DWAINE ####[facility] Lyekjvsape6448[address] [place], [place] [address]Dr. Ricardo Rocha CORRECTED WBC Normal 4.0-11.0 [facility] Comment on above: Performed By: #### C DWAINE ####[facility] Fhntwubxex[address] [place], [place] [address]Dr. Ricardo Rocha EOS # 0.00 103/ul Normal 0.00-0.70 [facility] Comment on above: Performed By: #### C DWAINE ####[facility] Wjvrwrqjiz5563 [place] [address]Dr. Ricardo Rocha EOS% 0.0 % Critically low 0.9-7.0 [facility] Comment on above: Performed By: #### C DWAINE ####[facility] Qrqxhcpudz8676 [place] [address]Dr. Ricardo Rocha HCT 32.6 % Critically low 36.0-48.0 [facility] Comment on above: Performed By: #### C DWAINE ####[facility] Ctvtgsartx810[address] [place], [place] [address]Dr. Ricardo Rocha HGB 10.5 g/dl Critically low 12.0-16.0 [facility] Comment on above: Performed By: #### C DWAINE ####[facility] Atuhsxcegz459[address] [place], [place] [address]Dr. Ricardo Rocha LYMPHM # 0.46 103/ul Critically low 1.20-3.80 [facility] Comment on above: Performed By: #### C DWAINE ####[facility] Rvyqkgzxpj4945 [place] [address]Dr. Ricardo Rocha LYMPHM% 5.0 % Critically low 20.5-60.0 [facility] Comment on above: Performed By: #### C DWAINE ####[facility] Vkefjozpdn6028 [place] [address]Dr. Ricardo Rocha MCH 25.3 pg Critically low 26.7-34.0 [facility] Comment on above: Performed By: #### C DWAINE ####[facility] Gdsxomfgou3321 [place] [address]Dr. Ricardo Rocha MCHC 32.2 g/dl Normal 29.9-35.2 [facility] Comment on above: Performed By: #### C DWAINE ####[facility] Dqoxgzbotp0529 [place] [address]Dr. Ricardo Rocha MCV 78.6 fL Critically low 81.0-99.0 [facility] Comment on above: Performed By: #### C DWAINE ####[facility] Huzkglnoqp975[address] [place], [place] [address]Dr. Ricardo Rocha METAMYELOCYTE # Normal [facility] Comment on above: Performed By: #### C DWAINE ####[facility] Guqfgcxyad2830 [place] [address]Dr. Ricardo Rocha METAMYELOCYTE % Normal [facility] Comment on above: Performed By: #### C DWAINE ####[facility] Hifwvyrctt5080 [place] [address]Dr. Ricardo Rocha MONOM# 0.28 103/ul Critically low 0.30-0.80 [facility] Comment on above: Performed By: #### C DWAINE ####[facility] Kmqvcfgyqj9899 [place] [address]Dr. Ricardo Rocha MONOM% 3.0 % Normal 1.7-12.0 [facility] Comment on above: Performed By: #### C DWAINE ####[facility] Rqvkbbatri5760 [place], [place] [address]Wu. Ricardo Rocha MPV 11.4 fL Normal 9.5-13.5 [facility] Comment on above: Performed By: #### C DWAINE ####[facility] Ncdjgshsvc1579 [place], [place] [address]Qg. Ricardo Rocha MYELOCYTE # Normal [facility] Comment on above: Performed By: #### C DWAINE ####[facility] Touywjblsn7259 [place], [place] [address]Kz. Ricardo Rocha MYELOCYTE % Normal [facility] Comment on above: Performed By: #### C DWAINE ####[facility] Vksdylsrxv5565 [place] [id number]. Ricardo Rocha NRBC Normal [facility] Comment on above: Performed By: #### C DWAINE ####[facility] Jrbmfeefxp6626 [place] [id number]. Ricardo Rocha PLT 154 103/ul Normal 150-450 [facility] Comment on above: Performed By: #### C DWAINE ####[facility] Qblzaupunx1243 [place] [id number]. Ricardo Rocha RBC 4.15 106/ul Critically low 4.20-5.40 [facility] Comment on above: Performed By: #### C DWAINE ####[facility] Qgiubfkktw3866 [place] [phone]. Ricardo Rocha RDW 12.8 % Normal 11.0-15.0 The [facility] Comment on above: Performed By: #### C DWAINE ####[facility] Xvnmkokuho3592 [place] [phone]. Ricardo Rocha SEG # 7.36 103/ul Critically high 1.40-6.50 [facility] Comment on above: Performed By: #### C DWAINE ####[facility] Ecmbyqnexf2848 [place] [id number]. Ricardo Rocha SEG % 80.0 % Critically high 43.0-75.0 [facility] Comment on above: Performed By: #### C BCMAN ####[facility] Mcfssickuo0520 [place] [id number]. Ricardo Rocha WBC 9.2 103/ul Normal 4.0-11.0 [facility] Comment on above: Performed By: #### C BCMAN ####[facility] Lntjjbhswg0724 [place] [phone]. Ricardo Rocha CT HEAD WO CONon 06-11-2022 CT HEAD WO CON Normal [facility] CULTURE ANAEROBICon 06-11-20 22 CULTURE ANAEROBIC Culture Observations : NO GROWTH OF ANAEROBES AT 72 HOURS. Normal [facility] Comment on above: Performed By: #### A NACX ####[facility] Iyjaqujhwk8975 [place] [id number]. Ricardo Rocha CULTURE ANAEROBIC Culture Observations : NO GROWTH OF ANAEROBES AT 72 HOURS. Normal [facility] Comment on above: Performed By: #### A NACX ####[facility] Oulvjlfxuf9064[address] [place], [place] [address]Dr. Ricardo Rocha CULTURE BLOODon 06-11-2022 Microscopic examination of blood, culture Culture Observations: Aerobic bottle positive only. Culture Observations: No growth at 5 days in anaerobic bottle Culture Observations: See for Susceptibility testing. Isolate 1 Staphylococcus aureus Growth of Normal [facility] Comment on above: Performed By: #### B LDCX2 ####[facility] Odrtbjgqle45[address] [place], [place] [address]Dr. Ricardo Rocha CULTURE URINEon 06-11-2022 CULTURE URINE Culture Observations : LIGHT GROWTH OF MIXED GENITAL SHAHLA. NO POTENTIAL PATHOGENS SEEN. Normal [facility] Comment on above: Performed By: #### U RCX ####[facility] Smuuyfgyhn9430[address] [place], [place] [address]Dr. Ricardo Rocha Covid-19 PCR (CVDTBH)on 05-22 SARS-CoV-2 (COVID-19) RNA ADRIEL+probe Ql (Unsp spec) Not detected Normal NOT DETECTED [facility] Comment on above: Result Comment: When [...] for this test is supported by the [place] [employer] and Human Service's declaration that [...] longer be used). Performed By: #### C [facility] ####[facility] Vpdpcmzsei3767[address] [place], [place] [address]Dr. Ricardo Rocha ER URINE PROFILEon 2 Bilirubin Ql (U) Negative Normal NEGATIVE [facility] Comment on above: Performed By: #### SHAYNA ELENA ####[facility] Kfrjyfyish4512[address] [place], [place] [address]Dr. Ricardo Rocha Clarity (U) CLEAR Normal CLEAR [facility] Comment on above: Performed By: #### JOSLYN ELENARO ####[facility] Rozpahoxcz[address] [place], [place] [address]Dr. Ricardo Rocha Color (U) LT. YELLOW Normal YELLOW [facility] Comment on above: Performed By: #### JOSLYN ELENARO ####[facility] Dtwtwvjmee2500[address] [place], [place] [address]Dr. Ricardo Rocha ERUAHD A micrscopic examination will be performed if indicated. Normal [facility] Comment on above: Performed By: #### JOSLYN ELENARO ####[facility] Yoifvjopjs6915[address] [place], [place] [address]Dr. Ricardo Rocha Glucose Ql (U) >1000 Abnormal NEGATIVE [facility] Comment on above: Performed By: #### JOSLYN ELENARO ####[facility] Opfevvzelz3628 [place] [address]Dr. Ricardo Rocha Hemoglobin Ql (U) LARGE Abnormal NEGATIVE [facility] Comment on above: Performed By: #### SHAYNA ELENA ####[facility] Jgmxbebefj514[address] [place], [place] [address]Dr. Ricardo Rocha Ketones Ql (U) 15 mg/dl Abnormal NEGATIVE [facility] Comment on above: Performed By: #### SHAYNA ELENA ####[facility] Ppzmocfrzf1105[address] [place], [place] [address]Dr. Ricardo Rocha LEUKOCYTES Negative Normal NEGATIVE [facility] Comment on above: Performed By: #### SHAYNA ELENA ####[facility] Xpoddzoimw5977[address] [place], [place] [address]Dr. Ricardo Rocha Nitrite Ql (U) Negative Normal NEGATIVE [facility] Comment on above: Performed By: #### SHAYNA ELENA ####[facility] Kiaptmzjtw3860[address] [place], [place] [address]Dr. Ricardo Rocha pH (U) 6.0 [pH] Normal 5-9 [facility] Comment on above: Performed By: #### SHAYNA ELENA ####[facility] Eugxptlysx822[address] [place], [place] [address]Dr. Ricardo Rocha Protein (U) [Mass/Vol] 100 mg/dL Abnormal NEGATIVE/ TRACE [facility] Comment on above: Performed By: #### SHAYNA ELENA ####[facility] Bugdsoouvd308[address] [place], [place] [address]Dr. Ricardo Rocha SPEC GRAVITY 1.020 Normal 1.005-<=1.02 5 [facility] Comment on above: Performed By: #### SHAYNA ELENA ####[facility] Cwspnpfkag57[address] [place], [place] [address]DrIrina Rocha UR MICRO IND INDICATED Normal [facility] Comment on above: Performed By: #### SHAYNA ELENA ####[facility] Aypdfjaelg994[address] [place], [place] [address]Dr. Ricardo Rocha Urobilinogen Qn (U) 0.2 {Madeleine'U}/dL Normal 0.2 - 1. 0 [facility] Comment on above: Performed By: #### E SHAYNA HINOJOSA ####[facility] Aztulsiboz69[address] [place] [address]Dr. Ricardo Rocha GRAM STAINon 06-11-2022 DIPHTHEROIDS Normal [facility] Comment on above: Performed By: #### G STAIN ####[facility] Dhoobruaee8535[address] [place], [place] [address]Dr. Ricardo Rocha EPITHELIALS Normal [facility] Comment on above: Performed By: #### G STAIN ####[facility] Ohqjvaeyha118[address] [place], [place] [address]Dr. Ricardo Rocha FUNGAL ELEMENTS Normal [facility] Comment on above: Performed By: #### G STAIN ####[facility] Dpfiitqhda064[address] [place], [place] [address]Dr. Ricardo Rocha GRAM NEG BACILLI Normal [facility] Comment on above: Performed By: #### G STAIN ####[facility] Pjvqkdvivj16[address] [place], [place] [address]Dr. Ricardo Rocha GRAM NEG DIPPLOCOCCI Normal [facility] Comment on above: Performed By: #### G STAIN ####[facility] Vdgtcdksoj514[address] [place], [place] [address]Dr. Ricardo Rocha GRAM POS BACILLI Normal [facility] Comment on above: Performed By: #### G STAIN ####[facility] Ouagnivxaq120[address] [place], [place] [address]Dr. Ricardo Rocha GRAM POSITIVE COCCI MANY Normal [facility] Comment on above: Performed By: #### G STAIN ####[facility] Scwhvscjri4734[address] [place], [place] [address]Dr. Ricardo Rocha GRAM STAIN SOURCE Left great toe tissu e after washout-clean Normal [facility] Comment on above: Performed By: #### G STAIN ####[facility] Doauzacdnt9733[address] [place], [place] [address]Dr. Ricardo Rocha GS_DIPTH Normal [facility] Comment on above: Performed By: #### G STAIN ####[facility] Psdlvuthwr3067 [place] [phone]. Rciardo Rocha WBC RARE Normal [facility] Comment on above: Performed By: #### G STAIN ####[facility] Knwlntoecd5363 [place] [id number]. Ricardo Rocha DIPHTHEROIDS Normal [facility] Comment on above: Performed By: #### G STAIN ####[facility] Geqmyhpbgk3802 [place] [phone]. Ricardo Rocha EPITHELIALS Normal [facility] Comment on above: Performed By: #### G STAIN ####[facility] Ilopkdizzk7650 [place] [address]Dr. Ricardo Rocha FUNGAL ELEMENTS Normal [facility] Comment on above: Performed By: #### G STAIN ####[facility] Uvuptyogqb7099 [place] [address]Dr. Ricardo Rocha GRAM NEG BACILLI Normal [facility] Comment on above: Performed By: #### G STAIN ####[facility] Wizsdbpuoo5843 [place] [address]Dr. Ricardo Rocha GRAM NEG DIPPLOCOCCI Normal [facility] Comment on above: Performed By: #### G STAIN ####[facility] Suknenzdoy07[address] [place], [place] [address]Dr. Ricardo Rocha GRAM POS BACILLI Normal [facility] Comment on above: Performed By: #### G STAIN ####[facility] Oecylumuhh4[address] [place] [address]Dr. Ricardo Rocha GRAM POSITIVE COCCI RARE Normal [facility] Comment on above: Performed By: #### G STAIN ####[facility] Vlatlfhhfr7926 [place] [address]Dr. Ricardo Rocha GRAM STAIN SOURCE Left great toe Normal [facility] Comment on above: Performed By: #### G STAIN ####[facility] Bvdyohdnit1803 [place] [address]Dr. Ricardo Rocha GS_DIPTH Normal [facility] Comment on above: Performed By: #### G STAIN ####[facility] Bpapxhudpk[address] [place], [place] [id number]. Ricardo Rocha WBC RARE Normal [facility] Comment on above: Performed By: #### G STAIN ####[facility] Lsodhmvsle4935[address] [place], [place] [address]Dr. Ricardo Rocha DIPHTHEROIDS Normal [facility] Comment on above: Performed By: #### G STAIN ####[facility] Ugtuxvnoaq237[address] [place], [place] [address]Dr. Ricardo Rocha EPITHELIALS Normal [facility] Comment on above: Performed By: #### G STAIN ####[facility] Swvwhjvfxh8567[address] [place], [place] [address]Dr. Ricardo Rocha FUNGAL ELEMENTS Normal [facility] Comment on above: Performed By: #### G STAIN ####[facility] Iqkycgqwat13[address] [place], [place] [address]Dr. Ricardo Rocha GRAM NEG BACILLI Normal [facility] Comment on above: Performed By: #### G STAIN ####[facility] Dsbwhkwanz8959[address] [place], [place] [address]Dr. Ricardo Rohca GRAM NEG DIPPLOCOCCI Normal [facility] Comment on above: Performed By: #### G STAIN ####[facility] Hpaxjjbwum2690[address] [place], [place] [address]Dr. Ricardo Rocha GRAM POS BACILLI Normal [facility] Comment on above: Performed By: #### G STAIN ####[facility] Vodshhcmpn7067[address] [place], [place] [address]Dr. Ricardo Rocha GRAM POSITIVE COCCI FEW Normal [facility] Comment on above: Performed By: #### G STAIN ####[facility] Haxfmaevmi036[address] [place], [place] [address]Dr. Ricardo Rocha GRAM STAIN SOURCE Left great toe abscess Normal [facility] Comment on above: Performed By: #### G STAIN ####[facility] Wzvpzlbxfg38[address] [place], [place] [address]Dr. Ricardo Rocha GS_DIPTH Normal [facility] Comment on above: Performed By: #### G STAIN ####[facility] Hfmedtghoh414[address] [place], [place] [address]Dr. Ricardo Rocha WBC FEW Normal [facility] Comment on above: Performed By: #### G STAIN ####[facility] Yaqqsbgxcr675[address] [place], [place] [address]Dr. Ricardo Rocha LACTATE/LACTIC ACIDon 2021 Lactate [Moles/Vol] 2.2 mmol/L Critically high 0.4-1.9 [facility] Comment on above: Performed By: #### L ACT ####[facility] Jwneezcahh69[address] [place], [place] [address]Dr. Ricardo Rocha POINT OF CARE GLUCOSEon 05-22 Glucose [Mass/Vol] 133 mg/dL Critically high 74-106 [facility] Comment on above: Performed By: #### P OCGLUC ####[facility] Kquprsyiax[address] [place], [place] [address]Dr. Ricardo Rocha Glucose [Mass/Vol] 215 mg/dL Critically high -106 [facility] Comment on above: Performed By: #### P OCGLUC ####[facility] Trozlgkpfz[address] [place], [place] [address]Dr. Ricardo Rocha Glucose [Mass/Vol] 207 mg/dL Critically high -106 [facility] Comment on above: Performed By: #### P OCGLUC ####[facility] Dnmjevtttd69[address] [place], [place] [address]Dr. Ricardo Rocha Glucose [Mass/Vol] 314 mg/dL Critically high -106 [facility] Comment on above: Performed By: #### P OCGLUC ####[facility] Epvqclmzlx8540[address] [place], [place] [address]Dr. Ricardo Rocha Glucose [Mass/Vol] 496 mg/dL Critically high -106 [facility] Comment on above: Performed By: #### P OCGLUC ####[facility] Aofgqixfkb670[address] [place], [place] [address]Dr. Ricardo Rocha Glucose [Mass/Vol] 561 mg/dL Critically high -106 [facility] Comment on above: Result Comment: Prev iously Confirmed Performed By: #### P OCGLUC ####[facility] Eeebpxyabn523[address] [place], [place] [address]Dr. Ricardo Rocha PROF 14(COMP METB)on 022 Albumin [Mass/Vol] 2.4 g/dL Critically low 3.4-5.0 Th e [facility] Comment on above: Performed By: #### C MP ####[facility] Qswlzciled[address] [place] [address]Dr. Ricardo Rocha Albumin/Globulin [Mass ratio] 0.4 {ratio} Normal [facility] Comment on above: Performed By: #### C MP ####[facility] Cvducsphkv43[address] [place] [address]Dr. Ricardo Rocha ALP [Catalytic activity/Vol] 82 U/L Normal 46-116 [facility] Comment on above: Performed By: #### C MP ####[facility] Gjplbkbxsp5[address] [place] [address]Dr. Ricardo Rocha ALT [Catalytic activity/Vol] 12 U/L Critically low 14-59 [facility] Comment on above: Performed By: #### C MP ####[facility] Huyrlcurnr5434[address] [place], [place] [address]Dr. Ricardo Rocha Anion gap [Moles/Vol] 15.1 mmol/L Normal [facility] Comment on above: Performed By: #### C MP ####[facility] Rnsjdpfepp8750[address] [place], [place] [address]Dr. Ricardo Rocha AST [Catalytic activity/Vol] 14 U/L Critically low 15-37 [facility] Comment on above: Performed By: #### C MP ####[facility] Xvvshhgxfe1140[address] [place], [place] [address]Dr. Ricardo Rocha Bilirubin [Mass/Vol] 0.4 mg/dL Normal 0.2-1.0 [facility] Comment on above: Performed By: #### C MP ####[facility] Ihoqaptglp646[address] [place], [place] [address]Dr. Ricardo Rocha Calcium [Mass/Vol] 8.8 mg/dL Normal 8.5-10.1 [facility] Comment on above: Performed By: #### C MP ####[facility] Scwenusdsm[address] [place] [address]Dr. Ricardo Rocha Chloride [Moles/Vol] 105 mmol/L Normal 98-107 [facility] Comment on above: Performed By: #### C MP ####[facility] Ovqziikecw14[address] [place] [address]Dr. Ricardo Rocha CO2 [Moles/Vol] 21.2 mmol/L Normal 21.0-32.0 [facility] Comment on above: Performed By: #### C MP ####[facility] Jeoucuthox100[address] [place], [place] [address]Dr. Ricardo Aj Creatinine [Mass/Vol] 2.03 mg/dL Critically high 0.55-1.02 [facility] Comment on above: Performed By: #### C MP ####[facility] Mgwcwssgti2438[address] [place], [place] [address]Dr. Ricardo Aj EGFR-AF CUBAN 30 mL/min/1.73m2 Critically low >=60 The [facility] Comment on above: Performed By: #### C MP ####[facility] Jgjggtgfdv7030[address] [place], [place] [address]Dr. Ricardo Aj EGFR-NON AF CUBAN 25 mL/min/1.73m2 Critically low >=60 The [facility] Comment on above: Performed By: #### C MP ####[facility] Ctzrxprbdo096[address] [place], [place] [address]Dr. Ricardo Aj Globulin (S) [Mass/Vol] 5.7 g/dL Normal [facility] Comment on above: Performed By: #### C MP ####[facility] Sdsxmjshcz72[address] [place] [address]Dr. Ricardo Aj Glucose [Mass/Vol] 309 mg/dL Critically high 74-106 [facility] Comment on above: Performed By: #### C MP ####[facility] Vsbgvlcret329[address] [place], [place] [address]Dr. Ricardo Aj Potassium [Moles/Vol] 3.3 mmol/L Critically low 3.5-5.1 The [facility] Comment on above: Performed By: #### C MP ####[facility] Mgpknccbcz6613 [place] [address]Dr. Ricardo Rocha Protein [Mass/Vol] 8.1 g/dL Normal 6.4-8.2 The [facility] Comment on above: Performed By: #### C MP ####[facility] Bukphgybpm4[address] [place] [address]Dr. Ricardo Rocha Sodium [Moles/Vol] 138 mmol/L Normal 136-145 The [facility] Comment on above: Performed By: #### C MP ####[facility] Syvdnhdymw5469[address] [place], [place] [address]Dr. Ricardo Rocha Urea nitrogen [Mass/Vol] 37.0 mg/dL Critically high 7.0-18.0 [facility] Comment on above: Performed By: #### C MP ####[facility] Zkrzbbhzfj759[address] [place], [place] [address]Dr. Ricardo Rocha Urea nitrogen/Creatinine [Mass ratio] 18.2 mg/mg Normal [facility] Comment on above: Performed By: #### C MP ####[facility] Xmnxhiboea8400[address] [place], [place] [address]Dr. Ricardo Rocha SED RATE [facility] 2021 SED RATE >130 Critically high <=30 The [facility] Comment on above: Performed By: #### S EDR ####[facility] Magmtcsrce5768[address] [place], [place] [address]Dr. Ricardo Rocha URINE MICROSCOPIC ONLYon AMORPHOUS CRYSTALS MODERATE Normal The [facility] Comment on above: Performed By: #### JOSLYN ELENARO ####[facility] Cacmtgpfnu766[address] [place], [place] [address]Dr. Ricardo Rocha BACTERIA MODERATE Abnormal NONE SEEN The [facility] Comment on above: Performed By: #### JOSLYN ELENARO ####[facility] Onsdajdxmm0049[address] [place], [place] [address]Dr. Ricardo Rocha Bacteria identified Cx Nom (U) INDICATED Normal The [facility] Comment on above: Performed By: #### JOSLNY ELENARO ####[facility] Wtuszbdnup128[address] [place], [place] [address]Dr. Ricardo Rocha CAST NONE SEEN Normal NONE SEEN The [facility] Comment on above: Performed By: #### LOLY ELENAICRO ####[facility] Qknnfdvfiq32[address] [place] [address]Dr. Ricardo Rocha Crystals LM Nom (Urine sed) SEEN Abnormal NONE SEEN The [facility] Comment on above: Performed By: #### LOLY ELENAICRO ####[facility] Jhyypvxryg57[address] [place] [address]Dr. Ricardo Rocha Epithelial cells LM Ql (Urine sed) NONE SEEN Normal NONE SEEN /RARE The [facility] Comment on above: Performed By: #### LOLY ELENAICRO ####[facility] Atdvtzrfcm[address] [place] [address]Dr. Ricardo Rocha MUCOUS NONE SEEN Normal NONE SEEN The [facility] Comment on above: Performed By: #### LOLY ELENAICRO ####[facility] Hkuypotesy97[address] [place] [address]Dr. Ricardo Rocha RBC 2-5 Abnormal 0-2 The [facility] Comment on above: Performed By: #### Jennifer HINOJOSA UMICRO ####[facility] Ropjtihkve25[address] [place] [address]Dr. Ricardo Rocha WBC 5-10 Abnormal NONE SEEN The [facility] Comment on above: Performed By: #### Jennifer HINOJOSA UMICRO ####[facility] Rlkuwebxam9[address] [place] [address]Dr. Ricardo Rocha XR CHEST 1 Von 06-11-2022 XR CHEST 1 V Normal The [facility] XR FOOT LT MIN 3 VIEWSon XR FOOT LT MIN 3 VIEWS Normal The [facility] XR FOOT LT MIN 3 VIEWS Normal The [facility] ACETONE SERUMon 06-10-2022 ACETONE Negative Normal NEGATIVE The [facility] Comment on above: Performed By: #### A CETON ####[facility] Ifplbxehln7632 [place] [address]Dr. Ricardo Rocha AMMONIAon 06-10-2022 Ammonia (P) [Mass/Vol] ug/dL Critically low 11-32 The [facility] Comment on above: Performed By: #### A MM ####[facility] Xvkzxfbeba6[address] [place] [id number]. Ricardo Rocha BLOOD CULTURE ID PANELon A. baumannii Not detected Normal NOT DETECTED The [facility] Comment on above: Performed By: #### B CID2 ####[facility] Tqvkttxzvt[address] [place] [id number]. Yimarcial Rocha Bacteriodes fragilis Not detected Normal NOT DETECTED The [facility] Comment on above: Performed By: #### B CID2 ####[facility] Oopmvafodd32[address] [place] [address]Dr. Yimarcial Rocha BCID CONTROLS PASSED Normal The [facility] Comment on above: Performed By: #### B CID2 ####[facility] Tklqalcknq7965[address] [place], [place] [address]Dr. Ricardo Rocha BCIDBTHD BLOOD CULTURE BOTTLE INFORMATION Normal The [facility] Comment on above: Performed By: #### B CID2 ####[facility] Uptjprfdzb3[address] [place] [address]Dr. Yimarcial Rocha BCIDHD1 ANTIMICROBIAL RESISTANCE GENES Normal The [facility] Comment on above: Performed By: #### B CID2 ####[facility] Czujbzszwh396[address] [place], [place] [address]Dr. Yimarcial Rocha BCIDHD2 SEE BELOW Normal The [facility] Comment on above: Result Comment: Note : Antimicrobial resitance can occur via multiple mechanisms. A Not Detected result for the [employer] antomicrobial resistance gene assays does not indicate antimicrobial susceptibility. Subculturing is required for species identification and susceptibility testing of isolates. Performed By: #### B CID2 ####[facility] Kndkgahyoz35[address] [place] [address]Dr. Ricardo Rocha BCIDHD3 Positive Normal The [facility] Comment on above: Performed By: #### B CID2 ####[facility] Qwxjbwkocg6432 [place] [address]Dr. Ricardo Rocha BCIDHD4 Negative Normal [facility] Comment on above: Performed By: #### B CID2 ####[facility] Eatngdnupk8[address] [place] [address]Dr. Ricardo Rocha BCIDHD5 YEAST Normal The [facility] Comment on above: Performed By: #### B CID2 ####[facility] Zzphhfrsvg8093 [place] [address]Dr. Yilan Rocha Bottle Set: Set 1 Normal The [facility] Comment on above: Performed By: #### B CID2 ####[facility] Nwxptwlczr1321 [place] [address]Dr. Ricardo Rocha Bottle: Aerobic Normal The [facility] Comment on above: Performed By: #### B CID2 ####[facility] Kzpjcmcbqm5977 [place] [address]Dr. Ricardo Rocha C. neoformans/gattii Not detected Normal NOT DETECTED The [facility] Comment on above: Performed By: #### B CID2 ####[facility] Samhenpqkr128[address] [place], [place] [address]Dr. Ricardo Rocha Lauren albicans Not detected Normal NOT DETECTED The [facility] Comment on above: Performed By: #### B CID2 ####[facility] Tghscoilpf2430[address] [place], [place] [address]Dr. Yimarcial Rocha Lauren auris Not detected Normal NOT DETECTED The [facility] Comment on above: Performed By: #### B CID2 ####[facility] Lkfisxrfpv913[address] [place], [place] [address]Dr. Yimarcial Rocha Lauren glabrata Not detected Normal NOT DETECTED The [facility] Comment on above: Performed By: #### B CID2 ####[facility] Kzeitdizap6331 [place] [address]Dr. Yimarcial Rocha Lauren Krusei Not detected Normal NOT DETECTED The [facility] Comment on above: Performed By: #### B CID2 ####[facility] Mvtefurbkd2429[address] [place], [place] [address]Dr. Yimarcial Rocha Lauren Parapsilosis Not detected Normal NOT DETECTED The [facility] Comment on above: Performed By: #### B CID2 ####[facility] Wjumcbzcqx8439[address] [place], [place] [address]Dr. Yimarcial Rocha Lauren Tropicalis Not detected Normal NOT DETECTED [facility] Comment on above: Performed By: #### B CID2 ####[facility] Rawcqhgqfi074[address] [place], [place] [address]Dr. Nanomarcial Rocha CTX-M Resistant Gene Not Applicable Normal NOT DETECTE D [facility] Comment on above: Performed By: #### B CID2 ####[facility] Bwdvexqxik311[address] [place], [place] [address]Dr. Ricardo Aj E. Cloacae complex Not detected Normal NOT DETECTED [facility] Comment on above: Performed By: #### B CID2 ####[facility] Nmdyhnwcse050[address] [place], [place] [address]Dr. Ricardo Rocha E. faecalis Not detected Normal NOT DETECTED The [facility] Comment on above: Performed By: #### B CID2 ####[facility] Wxwbxgeaxt4750[address] [place], [place] [address]Dr. Ricardo Rocha E. faecium Not detected Normal NOT DETECTED The [facility] Comment on above: Performed By: #### B CID2 ####[facility] Dljxijyhwt6516[address] [place], [place] [address]Dr. Ricardo Rocha Enterobacteriaceae Not detected Normal NOT DETECTED [facility] Comment on above: Performed By: #### B CID2 ####[facility] Xgbofgmxnf83[address] [place], [place] [address]Dr. Ricardo Rocha Escherichia coli Not detected Normal NOT DETECTED The [facility] Comment on above: Performed By: #### B CID2 ####[facility] Cmdbkywryy727[address] [place], [place] [address]Dr. Ricardo Rocha H. influenzae Not detected Normal NOT DETECTED The [facility] Comment on above: Performed By: #### B CID2 ####[facility] Uwfwrvtute9729[address] [place], [place] [address]Dr. Ricardo Rocha IMP Resistant Gene Not Applicable Normal NOT DETECTED The [facility] Comment on above: Performed By: #### B CID2 ####[facility] Enrklzldyz9809[address] [place], [place] [address]Dr. Ricardo Rocha K. oxytoca Not detected Normal NOT DETECTED The [facility] Comment on above: Performed By: #### B CID2 ####[facility] Rdifkbjnxx9193 [place] [address]Dr. Ricardo Rocha K. pneumoniae Not detected Normal NOT DETECTED The [facility] Comment on above: Performed By: #### B CID2 ####[facility] Ijkllgcxpv5027[address] [place], [place] [address]Dr. Ricardo Aj Klebsiella aerogenes Not detected Normal NOT DETECTED The [facility] Comment on above: Performed By: #### B CID2 ####[facility] Hafepcajco3[address] [place], [place] [address]Dr. Ricardo Rocha KPC Resistant Gene Not Applicable Normal NOT DETECTED The [facility] Comment on above: Performed By: #### B CID2 ####[facility] Wtmdvedksg3516[address] [place], [place] [address]Dr. Ricardo Rocha List. monocytogenes Not detected Normal NOT DETECTED [facility] Comment on above: Performed By: #### B CID2 ####[facility] Ckngdwofap9299[address] [place], [place] [address]Dr. Ricardo Rocha Mcr-1 Resistant Gene Not Applicable Normal NOT DETECTE D The [facility] Comment on above: Performed By: #### B CID2 ####[facility] Gfcbkvuvah8420[address] [place], [place] [address]Dr. Yilan Aj mecA/C Not Applicable Normal NOT DETECTED The [facility] Comment on above: Performed By: #### B CID2 ####[facility] Czjvteppcp9930[address] [place], [place] [address]Dr. Ricardo Rocha mecA/C MREJ Detected Abnormal NOT DETECTED The [facility] Comment on above: Performed By: #### B CID2 ####[facility] Butsjaqvzt2399[address] [place], [place] [address]Dr. Ricardo Rocha N. meningitidis Not detected Normal NOT DETECTED The [facility] Comment on above: Performed By: #### B CID2 ####[facility] Chfgooacgj3909[address] [place], [place] [address]Dr. Ricardo Rocha NDM Resistant Gene Not Applicable Normal NOT DETECTED The [facility] Comment on above: Performed By: #### B CID2 ####[facility] Fglfuqriik7850[address] [place], [place] [address]Dr. Ricardo Rocha Oxa-48-like Not Applicable Normal NOT DETECTED The [facility] Comment on above: Performed By: #### B CID2 ####[facility] Tmqjjvgarj1816[address] [place], [place] [address]Dr. Ricardo Rocha Proteus Not detected Normal NOT DETECTED The [facility] Comment on above: Performed By: #### B CID2 ####[facility] Ulqajbfzoq369[address] [place], [place] [address]Dr. Ricardo Rocha Pseud. aeruginosa Not detected Normal NOT DETECTED The [facility] Comment on above: Performed By: #### B CID2 ####[facility] Rexmjvepum5764[address] [place], [place] [address]Dr. Ricardo Rocha S. maltophilia Not detected Normal NOT DETECTED The [facility] Comment on above: Performed By: #### B CID2 ####[facility] Gojugvgtwd2840[address] [place], [place] [address]Dr. Ricardo Rocha Salmonella Not detected Normal NOT DETECTED The [facility] Comment on above: Performed By: #### B CID2 ####[facility] Shupbdrymo547[address] [place], [place] [address]Dr. Ricardo Rocha Seratia marcescens Not detected Normal NOT DETECTED [facility] Comment on above: Performed By: #### B CID2 ####[facility] Wefitokjhd812[address] [place], [place] [address]Dr. Ricardo Rocha Site: LEFT AC IV START Normal The [facility] Comment on above: Performed By: #### B CID2 ####[facility] Iskjxjopdr9518[address] [place], [place] [address]Dr. Ricardo Rocha Staph. aureus Detected Critically abnormal NOT DETECTED The [facility] Comment on above: Performed By: #### B CID2 ####[facility] Rcazsbpcnr6068[address] [place], [place] [address]Dr. Ricardo Rocha Staph. epidermidis Not detected Normal NOT DETECTED [facility] Comment on above: Performed By: #### B CID2 ####[facility] Xcsnbqgkde5889[address] [place], [place] [address]Dr. Ricardo Rocha Staph. lugdunensis Not detected Normal NOT DETECTED [facility] Comment on above: Performed By: #### B CID2 ####[facility] Tnsoivcwlg7770[address] [place], [place] [address]Dr. Ricardo Rocha Staphylococcus Detected Critically abnormal NOT DETECTED [facility] Comment on above: Performed By: #### B CID2 ####[facility] Saqsereafn9112[address] [place], [place] [address]Dr. Ricardo Rocha Strep. agalactiae Not detected Normal NOT DETECTED The [facility] Comment on above: Performed By: #### B CID2 ####[facility] Ljlwhhjnju611[address] [place], [place] [address]Dr. Ricardo Rocha Strep. pneumoniae Not detected Normal NOT DETECTED The [facility] Comment on above: Performed By: #### B CID2 ####[facility] Wrciiahkwk4740[address] [place], [place] [address]Dr. Ricardo Rocha Strep. pyogenes Not detected Normal NOT DETECTED [facility] Comment on above: Performed By: #### B CID2 ####[facility] Jemajuwlah544[address] [place], [place] [address]Dr. Ricardo Rocha Streptococcus Not detected Normal NOT DETECTED [facility] Comment on above: Performed By: #### B CID2 ####[facility] Vfaizargrf405[address] [place], [place] [address]Dr. Ricardo Rocha Layne/B Resist. Gene Not Applicable Normal NOT DETECTED The [facility] Comment on above: Performed By: #### B CID2 ####[facility] Rrazcwpmaj91[address] [place], [place] [address]Dr. Ricardo Rocha VIM Resistant Gene Not Applicable Normal NOT DETECTED The [facility] Comment on above: Performed By: #### B CID2 ####[facility] Dshwimotwo737[address] [place], [place] [address]Dr. Ricardo Rocha BLOOD GASES BTYon 06-10-2022 02 MODE ROOM AIR Normal The [facility] Comment on above: Performed By: #### A BG ####[facility] Lktawprqwr256[address] [place], [place] [address]Dr. Ricardo Rocha ALLENS TEST Positive Normal The [facility] Comment on above: Performed By: #### A BG ####[facility] Bqzzkvorzu99[address] [place] [address]Dr. Ricardo Rocha Base excess Calc (Bld) [Moles/Vol] -4.5000 mmol/L Critically low -2.0-2.0 [facility] Comment on above: Performed By: #### A BG ####[facility] Jzjagqbklk[address] [place], [place] [address]Dr. Ricardo Rocha BIPAP PRESSURE Normal [facility] Comment on above: Performed By: #### A BG ####[facility] Ynkddljflc538[address] [place], [place] [address]Dr. Ricardo Rocha CPAP Normal [facility] Comment on above: Performed By: #### A BG ####[facility] Agwjdpazae537[address] [place], [place] [address]Dr. Ricardo Rocha FIO2 Normal [facility] Comment on above: Performed By: #### A BG ####[facility] Ruvayouppl3338[address] [place], [place] [address]Dr. Ricardo Rocha HCO3 (Bld) [Moles/Vol] 21.4 mmol/L Critically low 22.0-26.0 [facility] Comment on above: Performed By: #### A BG ####[facility] Eidlleemjx575[address] [place], [place] [address]Dr. Ricardo Rocha LPM Normal [facility] Comment on above: Performed By: #### A BG ####[facility] Epghrndzuw3416[address] [place], [place] [address]Dr. Ricardo Rocha MINUTE VOLUME Normal [facility] Comment on above: Performed By: #### A BG ####[facility] Xkwwnrwlbs038[address] [place], [place] [address]Dr. Ricardo Rocha Oxygen (Bld) [Partial pressure] 66.4 mm[Hg] Critically low 80.0-100.0 [facility] Comment on above: Performed By: #### A BG ####[facility] Hxblwsjfhr274[address] [place], [place] [address]Dr. Ricardo Rocha Oxygen saturation in Blood 94.6 % Critically low 95.0-100.0 [facility] Comment on above: Performed By: #### A BG ####[facility] Lqqxboyimx5[address] [place] [address]Dr. Ricardo Rocha PCO2 29.4 mmHg Critically low 35.0-45.0 [facility] Comment on above: Performed By: #### A BG ####[facility] Dxpfimrxih6[address] [place] [address]Dr. Ricardo Rocha [facility] Comment on above: Performed By: #### A BG ####[facility] Tovvlyemtv3234[address] [place], [place] [address]Dr. Ricardo Rocha pH (Bld) 7.436 [pH] Normal 7.350-7.450 [facility] Comment on above: Performed By: #### A BG ####[facility] Znupukgfbq69[address] [place], [place] [address]Dr. Ricardo Rocha PIP [facility] Comment on above: Performed By: #### A BG ####[facility] Hcprspnwez465[address] [place], [place] [address]Dr. Ricardo Rocha PS [facility] Comment on above: Performed By: #### A BG ####[facility] Wojogeteft992[address] [place], [place] [address]Dr. Ricardo Rocha PUNCTURE SITE LR [place] [facility] Comment on above: Performed By: #### A BG ####[facility] Pwlxnpiktm9224[address] [place], [place] [address]Dr. Ricardo Rocha RATE [facility] Comment on above: Performed By: #### A BG ####[facility] Vyctdldopt626[address] [place], [place] [address]Dr. Ricardo Rocha VENT MODE [facility] Comment on above: Performed By: #### A BG ####[facility] Ypnbecsebm699[address] [place], [place] [address]Dr. Ricardo Rocha VT [facility] Comment on above: Performed By: #### A BG ####[facility] Vfsasytzzt8727[address] [place], [place] [address]Dr. Ricardo Rocha CBC W MANUAL DIFFon 06-10-20 22 ATYPICAL LYMPH # Normal [facility] Comment on above: Performed By: #### C BCMAN ####[facility] Xbtjnfdsdp0071 [place] [id number]. Ricardo Rocha ATYPICAL LYMPH % Normal [facility] Comment on above: Performed By: #### C BCMAN ####[facility] Bicbbbdkqk7024 [place] [id number]. Ricardo Rocha BAND # 1.3 103/ul Critically high 0.0-0.3 [facility] Comment on above: Performed By: #### C BCMAN ####[facility] Cjhnhawuaa9148 [place] [address]Dr. Ricardo Rocha BAND % 12 % Critically high 0-5 The [facility] Comment on above: Performed By: #### C BCRED ####[facility] Pqwczeoeyw827[address] [place], [place] [address]Dr. Ricardo Rocha BASOM # 0.00 103/ul Normal 0.00-0.10 The [facility] Comment on above: Performed By: #### C BCRED ####[facility] Yfizwuqgeu14[address] [place], [place] [address]Dr. Ricardo Rocha BASOM % 0.0 % Critically low 0.2-2.0 [facility] Comment on above: Performed By: #### C BCRED ####[facility] Ppntmksqxy9245 [place] [address]Dr. Ricardo Rocha BLAST # Normal The [facility] Comment on above: Performed By: #### C BCRED ####[facility] Rxtamancbp1792 [place] [address]Dr. Ricardo Rocha BLAST % Normal The [facility] Comment on above: Performed By: #### C BCMAN ####[facility] Hdekwpirbg5315[address] [place], [place] [address]Dr. Ricardo Aj CORRECTED WBC Normal 4.0-11.0 [facility] Comment on above: Performed By: #### C BCRED ####[facility] Gflolzpebb928[address] [place], [place] [address]Dr. Ricardo Rocha EOS # 0.00 103/ul Normal 0.00-0.70 [facility] Comment on above: Performed By: #### C DWAINE ####[facility] Vaqagbpobp5766 [place] [phone]. Ricardo Rocha EOS% 0.0 % Critically low 0.9-7.0 [facility] Comment on above: Performed By: #### C DWAINE ####[facility] Acvffjppvm7156 [place] [address]Dr. Ricardo Rocha HCT 35.5 % Critically low 36.0-48.0 [facility] Comment on above: Performed By: #### C DWAINE ####[facility] Zbexxekqws3218 [place] [address]Dr. Ricardo Rocha HGB 11.4 g/dl Critically low 12.0-16.0 [facility] Comment on above: Performed By: #### C DWAINE ####[facility] Maepumuekv49[address] [place], [place] [address]Dr. Ricardo Rocha HYPERSEG NEUT 3+ Normal [facility] Comment on above: Performed By: #### C DWAINE ####[facility] Vkcwzcgntf5977 [place] [address]Dr. Ricardo Rocha LYMPHM # 0.21 103/ul Critically low 1.20-3.80 [facility] Comment on above: Performed By: #### C DWAINE ####[facility] Skpozewpwq9034 [place] [address]Dr. Ricardo Rocha LYMPHM% 2.0 % Critically low 20.5-60.0 [facility] Comment on above: Performed By: #### C DWAINE ####[facility] Rqktjxpwgq7581 [place] [id number]. Ricardo Rocha MCH 25.3 pg Critically low 26.7-34.0 [facility] Comment on above: Performed By: #### C DWAINE ####[facility] Qwqpfsiggu9581 [place] [phone]. Ricardo Rocha MCHC 32.1 g/dl Normal 29.9-35.2 [facility] Comment on above: Performed By: #### C DWAINE ####[facility] Ifjmngiwfi6399 [place] [address]Dr. Ricardo Rocha MCV 78.9 fL Critically low 81.0-99.0 [facility] Comment on above: Performed By: #### C DWAINE ####[facility] Bfropfszrc6764 [place] [id number]. Ricardo Rocha METAMYELOCYTE # Normal [facility] Comment on above: Performed By: #### C DWAINE ####[facility] Lmtbiyfwrv3980 [place] [address]Dr. Ricardo Rocha METAMYELOCYTE % Normal [facility] Comment on above: Performed By: #### C DWAINE ####[facility] Giclmadsda5030 [place] [phone]. Ricardo Rocha MONOM# 0.32 103/ul Normal 0.30-0.80 [facility] Comment on above: Performed By: #### C DWAINE ####[facility] Fvclucguqd2027 [place] [phone]. Ricardo Rocha MONOM% 3.0 % Normal 1.7-12.0 [facility] Comment on above: Performed By: #### C DWAINE ####[facility] Rcbujfkzii0378 [place] [address]Dr. Ricardo Rocha MPV 10.9 fL Normal 9.5-13.5 The [facility] Comment on above: Performed By: #### C DWAINE ####[facility] Vkvwyqyaiy9350 [place] [address]Dr. Ricardo Rocha MYELOCYTE # Normal The [facility] Comment on above: Performed By: #### C DWAINE ####[facility] Ffhiknvusm7959 [place] [address]Dr. Ricardo Rocha MYELOCYTE % Normal The [facility] Comment on above: Performed By: #### C DWAINE ####[facility] Magiooooym2435 [place] [phone]. Ricardo Rocha NRBC Normal The [facility] Comment on above: Performed By: #### C DWAINE ####[facility] Qtjqprakjh5046 [place], [place] [address]Ay. Ricardo Rocha PLT 180 103/ul Normal 150-450 The [facility] Comment on above: Performed By: #### C DWAINE ####[facility] Gjtlouzpcd5372 [place], [place] [address]Qa. Ricardo Rocha RBC 4.50 106/ul Normal 4.20-5.40 [facility] Comment on above: Performed By: #### C DWAINE ####[facility] Wblwvovxdr9809 [place] [address]Dr. Ricardo Rocha RDW 12.8 % Normal 11.0-15.0 [facility] Comment on above: Performed By: #### C DWAINE ####[facility] Vwaiipdaiq3176 [place] [address]Dr. Ricardo Rocha SEG # 8.71 103/ul Critically high 1.40-6.50 [facility] Comment on above: Performed By: #### C DWAINE ####[facility] Gitlmteulz1707 [place] [address]Dr. Ricardo Rocha SEG % 83.0 % Critically high 43.0-75.0 [facility] Comment on above: Performed By: #### C DWAINE ####[facility] Kteryihgvk9348 [place] [address]Dr. Ricardo Rocha TOXIC GRANULATION 2+ Normal [facility] Comment on above: Performed By: #### C DWAINE ####[facility] Vpzzxoutvs5895 [place] [address]Dr. Ricardo Rocha WBC 10.5 103/ul Normal 4.0-11.0 [facility] Comment on above: Performed By: #### C DWAINE ####[facility] Tgnyjhztiz[address] [place], [place] [address]Dr. Ricardo Rocha CULTURE BLOODon 06-10-2022 Microscopic examination of blood, culture Culture Observations: Positive blood culture. Pediatric bottle. Culture Observations: Please refer to for susceptibility testing. Isolate 1 Staphylococcus aureus Growth of Normal The [facility] Comment on above: Performed By: #### B LDCX2 ####[facility] Pbpsvpqxrn6354 [place] [address]Dr. Ricardo Rocha LACTATE/LACTIC ACIDon 2021 Lactate [Moles/Vol] 1.9 mmol/L Normal 0.4-1.9 [facility] Comment on above: Performed By: #### L ACT ####[facility] Kuzmhhlvqr9[address] [place], [place] [address]Dr. Ricardo Rocha LIPASEon 06-10-2022 Lipase [Catalytic activity/Vol] 164.0 U/L Normal 73.0-393.0 [facility] Comment on above: Performed By: #### H STROPN, LIPA, CMP, TSH ####[facility] Tdptosusem5355[address] [place], [place] [address]Dr. Ricardo Rocha POINT OF CARE GLUCOSEon 05-22 Glucose [Mass/Vol] 583 mg/dL Critically high 74-106 [facility] Comment on above: Result Comment: Resu lt Not Confirmed Performed By: #### P OCGLUC ####[facility] Ptsxybfykm4036[address] [place], [place] [address]Dr. Ricardo Rocha PROF 14(COMP METB)on 022 Albumin [Mass/Vol] 3.0 g/dL Critically low 3.4-5.0 [facility] Comment on above: Performed By: #### H STROPN, LIPA, CMP, TSH ####[facility] Cwmzjkhohe2565[address] [place], [place] [address]Dr. Ricardo Rocha Albumin/Globulin [Mass ratio] 0.5 {ratio} Normal [facility] Comment on above: Performed By: #### H STROPN, LIPA, CMP, TSH ####[facility] Fuvmxldijo1290 [place] [address]Dr. Ricardo Rocha ALP [Catalytic activity/Vol] 116 U/L Normal 46-116 [facility] Comment on above: Performed By: #### H STROPN, LIPA, CMP, TSH ####[facility] Sqerrprvvp8840[address] [place], [place] [address]Dr. Ricardo Rocha ALT [Catalytic activity/Vol] 15 U/L Normal 14-59 [facility] Comment on above: Performed By: #### H STROPN, LIPA, CMP, TSH ####[facility] Aktkmifeze9090 [place] [address]Dr. Ricardo Rocha Anion gap [Moles/Vol] 15.7 mmol/L Normal [facility] Comment on above: Performed By: #### H STROPN, LIPA, CMP, TSH ####[facility] Tlqackgwfs1527 [place] [address]Dr. Ricardo Rocha AST [Catalytic activity/Vol] 16 U/L Normal 15-37 The [facility] Comment on above: Performed By: #### H STROPN, LIPA, CMP, TSH ####[facility] Eybqwojgvk2096 [place] [address]Dr. Ricardo Rocha Bilirubin [Mass/Vol] 0.5 mg/dL Normal 0.2-1.0 [facility] Comment on above: Performed By: #### H STROPN, LIPA, CMP, TSH ####[facility] Rywhflducb2995 [place] [address]Dr. Ricardo Rocha Calcium [Mass/Vol] 9.4 mg/dL Normal 8.5-10.1 [facility] Comment on above: Performed By: #### H STROPN, LIPA, CMP, TSH ####[facility] Rioijttulw7752 [place] [address]Dr. Ricardo Rocha Chloride [Moles/Vol] 95 mmol/L Critically low 98-107 The [facility] Comment on above: Performed By: #### H STROPN, LIPA, CMP, TSH ####[facility] Ajhtvhipxy2981 [place] [address]Dr. Ricardo Rocha CO2 [Moles/Vol] 22.1 mmol/L Normal 21.0-32.0 [facility] Comment on above: Performed By: #### H STROPN, LIPA, CMP, TSH ####[facility] Tyitplusby3071 [place] [address]Dr. Ricardo Rocha Creatinine [Mass/Vol] 2.23 mg/dL Critically high 0.55-1.02 [facility] Comment on above: Performed By: #### H STROPN, LIPA, CMP, TSH ####[facility] Nxljiedlcy0589 [place] [address]Dr. Ricardo Rocha EGFR-AF CUBAN 27 mL/min/1.73m2 Critically low >=60 [facility] Comment on above: Performed By: #### H STROPN, LIPA, CMP, TSH ####[facility] Lhgqkdmkim7055 [place] [address]Dr. Ricardo Rocha EGFR-NON AF CUBAN 22 mL/min/1.73m2 Critically low >=60 [facility] Comment on above: Performed By: #### H STROPN, LIPA, CMP, TSH ####[facility] Hnfwhsqnjp9957 [place] [address]Dr. Ricardo Rocha Globulin (S) [Mass/Vol] 6.5 g/dL Normal [facility] Comment on above: Performed By: #### H STROPN, LIPA, CMP, TSH ####[facility] Vavknahkgc9694 [place] [address]Dr. Ricardo Rocha Glucose [Mass/Vol] 593 mg/dL Critically high 74-106 [facility] Comment on above: Performed By: #### H STROPN, LIPA, CMP, TSH ####[facility] Eqeeyvkoml8572 [place] [address]Dr. Ricardo Rocha Potassium [Moles/Vol] 3.8 mmol/L Normal 3.5-5.1 [facility] Comment on above: Performed By: #### H STROPN, LIPA, CMP, TSH ####[facility] Odwpdekmls8637 [place] [address]Dr. Ricardo Rocha Protein [Mass/Vol] 9.5 g/dL Critically high 6.4-8.2 [facility] Comment on above: Performed By: #### H STROPN, LIPA, CMP, TSH ####[facility] Tjcejaaack7091 [place] [address]Dr. Ricardo Rocha Sodium [Moles/Vol] 129 mmol/L Critically low 136-145 Th e [facility] Comment on above: Performed By: #### H STROPN, LIPA, CMP, TSH ####[facility] Lhxfzxbble3816 [place] [address]Dr. Ricardo Rocha Urea nitrogen [Mass/Vol] 40.0 mg/dL Critically high 7.0-18.0 [facility] Comment on above: Performed By: #### H STROPN, LIPA, CMP, TSH ####[facility] Ozlnlaxvem3986 [place] [address]Dr. Ricardo Rocha Urea nitrogen/Creatinine [Mass ratio] 17.9 mg/mg Normal The [facility] Comment on above: Performed By: #### H STROPN, LIPA, CMP, TSH ####[facility] Nuxxpdvphi25[address] [place], [place] [address]Dr. Ricadro Rocha PROTIMEon 06-10-2022 INR Coag (PPP) [Relative time] 1.00 {INR} Normal [facility] Comment on above: Performed By: #### P TT, PT ####[facility] Hwaseamunv[address] [place], [place] [address]Dr. Ricardo Rocha INR GUIDELINES SEE BELOW Normal [facility] Comment on above: Result Comment: AMBROSIO RED INR: 2.0 - 3.0 CONDITIONS NOT LISTED BELOW 2.5 - 3.5 FOR PROSTHETIC HEART VALVE REPLACEMENT 2.5 - 3.5 RECURRENT THROMBOSIS Performed By: #### P TT, PT ####[facility] Bhcldtnhty266[address] [place], [place] [address]Dr. Ricardo Rocha PT Coag (PPP) [Time] 10.8 s Normal 9.0-11.6 [facility] Comment on above: Performed By: #### P TT, PT ####[facility] Hjqakpvsqg564[address] [place], [place] [address]Dr. Ricardo Rocha PTTon 06-10-2022 aPTT Coag (Bld) [Time] 31.7 s Normal 22.3-36.2 [facility] Comment on above: Performed By: #### P TT, PT ####[facility] Swybhmknad[address] [place], [place] [address]Dr. Ricardo Rocha TROPONIN, HIGH SENSITIVITYon 06-10-2022 HSTROP 30.9 pg/mL Normal 4.0-51.3 [facility] Comment on above: Result Comment: CUT- OFF POINTS HAVE BEEN ESTABLISHED BASED ON THE FOURTH UNIVERSAL DEFINITIONS OF MYOCARDIALINFARCTION. THE UPPER REFERENCE LIMIT (URL) OF TROPONIN, DEFINED THE 99TH PERCENTILE OFcTnI DISTRIBUTION IN A REFERENCE POPULATION, HAS BEEN CONFIRMED THE DECISION THRESHOLDFOR ND DIAGNOSIS. Performed By: #### H STROPN, LIPA, CMP, TSH ####[facility] Wrjdbatqyf9518 [place] [id number]. Ricardo Rocha TSHon 06-10-2022 TSH 0.147 uIU/mL Critically low 0.358-3.740 [facility] Comment on above: Performed By: #### H STROPN, LIPA, CMP, TSH ####[facility] Uvjvwhcieg6168 [place] [address]Dr. Ricardo Rocha XR FOOT GURJIT MIN 3 VIEWSon XR FOOT GURJIT MIN 3 VIEWS Normal [facility] XR HAND RT MIN 3Von 06-02-20 XR HAND RT MIN 3V Normal [facility] CULTURE WOUNDon 05-15-2022 CULTURE WOUND Normal [facility] Comment on above: Performed By: #### W OUNDCX ####[facility] Sfemypxmpm2711 [place] [phone]. Ricardo Rocha CBC AUTO DIFFon 2022 BASO # 0.0 103/ul Normal 0.0-0.1 [facility] Comment on above: Performed By: #### C BC ####[facility] Tvhhjcoedq0613 [place] [phone]. Ricardo Rocha Basophils/100 WBC (Bld) 0.7 % Normal 0.2-2.0 The [facility] Comment on above: Performed By: #### C BC ####[facility] Pltcoigjxm[address] [place], [place] [address]Dr. Ricardo Rocha EO # 0.1 103/ul Normal 0.0-0.7 [facility] Comment on above: Performed By: #### C BC ####[facility] Twnuqkjhwb9754 [place] [address]Dr. Ricardo Rocha Eosinophils/100 WBC (Bld) 2.1 % Normal 0.9-7.0 [facility] Comment on above: Performed By: #### C BC ####[facility] Kjfommzqds8454 [place] [address]Dr. Ricardo Rocha Erythrocyte distribution width (RBC) [Ratio] 13.2 % Normal 11.0-15.0 The [facility] Comment on above: Performed By: #### C BC ####[facility] Vwzqpwzymb4527[address] [place], [place] [address]Dr. Ricardo Rocha Hematocrit (Bld) [Volume fraction] 36.6 % Normal 36.0-48.0 The [facility] Comment on above: Performed By: #### C BC ####[facility] Yabkyxztdz5375[address] [place], [place] [address]Dr. Ricardo Rocha Hemoglobin (Bld) [Mass/Vol] 11.9 g/dL Critically low 12.0-16.0 [facility] Comment on above: Performed By: #### C BC ####[facility] Igdpnvxord715[address] [place], [place] [address]Dr. Ricardo Rocha IG # 0.03 10e3/ul Normal 0.00-0.03 [facility] Comment on above: Performed By: #### C BC ####[facility] Eplljcsvyd9380[address] [place], [place] [address]Dr. Ricardo Rocha IG % 0.5 % Normal 0.0-0.5 [facility] Comment on above: Performed By: #### C BC ####[facility] Vgqjunjjkg9789[address] [place], [place] [address]Dr. Ricardo Rocha LYMPH # 2.1 103/ul Normal 1.2-3.8 [facility] Comment on above: Performed By: #### C BC ####[facility] Owsjvsobgz226[address] [place], [place] [address]Dr. Ricardo Rocha Lymphocytes/100 WBC (Bld) 33.8 % Normal 20.5-60.0 [facility] Comment on above: Performed By: #### C BC ####[facility] Iraccvwvgh0254 [place] [address]Dr. Ricardo Rocha MANUAL DIFF REQ NO Normal [facility] Comment on above: Performed By: #### C BC ####[facility] Nwqvjwerso8581 [place] [address]Dr. Ricardo Rocha MCH (RBC) [Entitic mass] 25.7 pg Critically low 26.7-34.0 [facility] Comment on above: Performed By: #### C BC ####[facility] Lxnxpowbna288[address] [place], [place] [address]Dr. Ricardo Rocha MCHC (RBC) [Mass/Vol] 32.5 g/dL Normal 29.9-35.2 [facility] Comment on above: Performed By: #### C BC ####[facility] Arsyvwdnwv8088[address] [place], [place] [address]Dr. Nanomarcial Rocha MCV (RBC) [Entitic vol] 79.0 fL Critically low 81.0-99.0 [facility] Comment on above: Performed By: #### C BC ####[facility] Ifewwrzoji5434[address] [place], [place] [address]Dr. Ricardo Rocha MONO # 0.4 103/ul Normal 0.3-0.8 [facility] Comment on above: Performed By: #### C BC ####[facility] Mgrgtfxiew2704[address] [place], [place] [address]Dr. Nanomarcial Rocha Monocytes/100 WBC (Bld) 6.2 % Normal 1.7-12.0 The [facility] Comment on above: Performed By: #### C BC ####[facility] Okzvifmtyk8240[address] [place], [place] [address]Dr. Ricardo Rocha NEUT # 3.5 103/ul Normal 1.4-6.5 [facility] Comment on above: Performed By: #### C BC ####[facility] Miwpvhasrl7889[address] [place], [place] [address]Dr. Nanomarcial Rocha Neutrophils/100 WBC (Bld) 56.7 % Normal 43.0-75.0 [facility] Comment on above: Performed By: #### C BC ####[facility] Olymernlvy5452 [place] [id number]. aNnomarcial Aj Platelet mean volume (Bld) [Entitic vol] 10.9 fL Normal 9.5-13.5 [facility] Comment on above: Performed By: #### C BC ####[facility] Smhnppybyh9673 [place] [address]Dr. Ricardo Rocha PLT 241 103/ul Normal 150-450 [facility] Comment on above: Performed By: #### C BC ####[facility] Frtnxmqmff7546 [place] [address]Dr. Ricardo Rocha RBC 4.63 106/ul Normal 4.20-5.40 [facility] Comment on above: Performed By: #### C BC ####[facility] Frxdkjvxvu560[address] [place], [place] [address]Dr. Ricardo Rocha WBC 6.1 103/ul Normal 4.0-11.0 [facility] Comment on above: Performed By: #### C BC ####[facility] Cuegmoxixc756[address] [place], [place] [address]Dr. Ricardo Rocha PROF CHEM 8 (BAS METB)on Anion gap [Moles/Vol] 11.8 mmol/L Normal [facility] Comment on above: Performed By: #### B MP ####[facility] Zfzkepfvrp0629 [place] [address]Dr. Ricardo Rocha Calcium [Mass/Vol] 9.2 mg/dL Normal 8.5-10.1 [facility] Comment on above: Performed By: #### B MP ####[facility] Xinxdmzaed6594 [place] [address]Dr. Ricardo Rocha Chloride [Moles/Vol] 99 mmol/L Normal 98-107 [facility] Comment on above: Performed By: #### B MP ####[facility] Vbzxlzjlit1475 [place] [address]Dr. Ricardo Rocha CO2 [Moles/Vol] 24.7 mmol/L Normal 21.0-32.0 [facility] Comment on above: Performed By: #### B MP ####[facility] Vepdxdsnel2950 [place] [address]Dr. Ricardo Rocha Creatinine [Mass/Vol] 1.48 mg/dL Critically high 0.55-1.02 [facility] Comment on above: Performed By: #### B MP ####[facility] Lvrefclwai6475[address] [place], [place] [address]Dr. Ricardo Aj EGFR-AF CUBAN 43 mL/min/1.73m2 Critically low >=60 [facility] Comment on above: Performed By: #### B MP ####[facility] Zmwrforjfq5905[address] [place], [place] [address]Dr. Ricardo Aj EGFR-NON AF CUBAN 36 mL/min/1.73m2 Critically low >=60 [facility] Comment on above: Performed By: #### B MP ####[facility] Chltcakyaj640[address] [place], [place] [address]Dr. Ricardo Rocha Glucose [Mass/Vol] 431 mg/dL Critically high 74-106 [facility] Comment on above: Performed By: #### B MP ####[facility] Ydsmkingdw4824[address] [place], [place] [address]Dr. Ricardo Rocha Potassium [Moles/Vol] 4.5 mmol/L Normal 3.5-5.1 [facility] Comment on above: Performed By: #### B MP ####[facility] Hadusafkid9488[address] [place], [place] [address]Dr. Ricardo Rocha Sodium [Moles/Vol] 131 mmol/L Critically low 136-145 Th [facility] Comment on above: Performed By: #### B MP ####[facility] Knphvzufio4511[address] [place], [place] [address]Dr. Ricardo Rocha Urea nitrogen [Mass/Vol] 23.0 mg/dL Critically high 7.0-18.0 [facility] Comment on above: Performed By: #### B MP ####[facility] Wfwlfqpfgu897[address] [place], [place] [address]Dr. Ricardo Rocha Urea nitrogen/Creatinine [Mass ratio] 15.5 mg/mg Normal [facility] Comment on above: Performed By: #### B ####[facility] [address] [place], [place] [address]HvIrina Rocha XR TOES GURJIT MIN 2 Von 2021 XR TOES GURJIT MIN 2 V Normal [facility] HEALTHon 01-21-2021 ALLIED HEALTH HNO ID: [id number] Author: RT Parveen(R) Service: ? Author Type: Order Worker Type: Allied Health Filed: 01/20/2021 10:30 PM [...] Parveen(R) January 20, 2021 10:29 PM Normal [facility] Basic Metabolic Panlon 01-21 Anion gap [Moles/Vol] 7 mmol/L Low 9-18 [facility] Calcium [Mass/Vol] 8.8 mg/dL Normal 8.5-10.2 [facility] ospital Chloride [Moles/Vol] 99 mmol/L Normal 97-105 [facility] CO2 [Moles/Vol] 25 mmol/L Normal 22-30 [facility] Creatinine [Mass/Vol] 1.51 mg/dL High 0.58-0.96 [facility] eGFR- Amer. 42 Normal [facility] ospital eGFR-All Other Races 35 . Normal [facility] Comment on above: Result Comment: eGFR [...] GFR. Glucose [Mass/Vol] 141 mg/dL High 74-99 [facility] Comment on above: Result Comment: [...] 1). Potassium [Moles/Vol] 4.7 mmol/L Normal 3.7-5.1 [facility] Sodium [Moles/Vol] 131 mmol/L Low 136-144 [facility] Urea nitrogen [Mass/Vol] 42 mg/dL High 7-21 [facility] CBCon 01-21-2021 Absolute nRBC <0.01 [facility]0.01 [facility]th[facility] distribution width (RBC) [Ratio] 13.1 % Normal 11.5-15.0 [facility] Hematocrit (Bld) [Volume fraction] 30.0 % Low 36.0-46.0 [facility] Hemoglobin (Bld) [Mass/Vol] 9.5 g/dL Low 11.5-15.5 [facility] MCH 24.4 pG Low 26.0-34.0 [facility] MCHC (RBC) [Mass/Vol] 31.7 g/dL Normal 30.5-36.0 [facility] MCV (RBC) [Entitic vol] 77.1 fL Low 80.0-100.0 [facility] Platelet mean volume (Bld) [Entitic vol] 11.1 fL Normal 9.0-12.7 [facility] Platelets (Bld) [#/Vol] 358 10*3/uL Normal 150-400 [facility] RBC (Bld) [#/Vol] 3.89 10*6/uL Low 3.90-5.20 [facility] WBC (Bld) [#/Vol] 9.64 10*3/uL Normal 3.70-11.00 [facility] CNDSon 01-21-2021 CNDS HNO ID: [id number] Author: Inna Hansen DO Service: Hospital Medicine [...] Team: Attending Provider: Inna Hansen DO Physician It Data Architect: Garrett Simon PA-C Consulting: Taurus Ballard MD [...] PCP: referred to a new PCP in [place]. Future Appointments Date Time Provider Department Center 01/29/2021 11:40 AM Taurus Ballard MD [facility] The patient's risk for 30-day readmission is determined using the following contributing factors: Pt variables contributing to increased readmission risk: 42 Most Recent (more content not included)... Normal [facility] MRI KIDNEY WO/W IVCONon 06-0 MRI KIDNEY WO/W IVCON * * *Final Report* * * DATE OF EXAM: Jan 20 2021 10:35PM [facility] 0721 - MRI KIDNEY WO/W IVCON / PROCEDURE REASON: Renal cyst * * * * Physician Interpretation * * * * EXAMINATION: MRI ABDOMEN WITHOUT AND WITH IV CONTRAST CLINICAL HISTORY: Renal mass characterization. TECHNIQUE: A renal MRI was performed on a MR system utilizing the torso phased-array coil. Pulse sequences included: axial precontrast T1 weighted in- and [id number]-ul-gbmuq, axial and coronal HASTE, axial DWI with [...] be communicated with the ordering provider via Itiva staff message or phone message by Imaging Support Services within 2 business days of report finalization. Algorithms for management of incidental imaging findings can be found on the [facility] Intranet Sharepoint site at: [email or web address] [email or web address]/ Managing%20Incidental%2 0Findi ngs%20at%20Imaging/Form s/AllItems.aspx Rug Setter [place]: GUILLE Transcribe Date/Time: Jan 21 2021 8:17A Dictated by : MALLORY AHN MD This examination was interpreted and the report reviewed and electronically signed by: MALLORY AHN MD on Jan 21 2021 8:49AM EST [id number] ACTIONABLE Invalid Interpretation Code [facility] Basic Metabolic Panlon 01-20 Anion gap [Moles/Vol] 11 mmol/L Normal 9-18 [facility] Calcium [Mass/Vol] 8.7 mg/dL Normal 8.5-10.2 [facility] ospital Chloride [Moles/Vol] 97 mmol/L Normal 97-105 [facility] CO2 [Moles/Vol] 24 mmol/L Normal 22-30 [facility] Creatinine [Mass/Vol] 1.46 mg/dL High 0.58-0.96 [facility] eGFR- Amer. 44 Normal [facility] eGFR-All Other Races 36 . Normal [facility] Comment on above: Result Comment: eGFR [...] 1). Potassium [Moles/Vol] 3.9 mmol/L Normal 3.7-5.1 [facility] Sodium [Moles/Vol] 132 mmol/L Low 136-144 [facility] Urea nitrogen [Mass/Vol] 53 mg/dL High 7-21 [facility] CBCon 01-20-2021 Absolute nRBC <0.01 Normal <0.01 [facility] Erythrocyte distribution width (RBC) [Ratio] 12.8 % Normal 11.5-15.0 [facility] Hematocrit (Bld) [Volume fraction] 27.7 % Low 36.0-46.0 [facility] Hemoglobin (Bld) [Mass/Vol] 8.9 g/dL Low 11.5-15.5 [facility] MCH 24.5 pG Low 26.0-34.0 [facility] MCHC (RBC) [Mass/Vol] 32.1 g/dL Normal 30.5-36.0 [facility] MCV (RBC) [Entitic vol] 76.3 fL Low 80.0-100.0 [facility] Platelet mean volume (Bld) [Entitic vol] 11.1 fL Normal 9.0-12.7 [facility] Platelets (Bld) [#/Vol] 321 10*3/uL Normal 150-400 [facility] RBC (Bld) [#/Vol] 3.63 10*6/uL Low 3.90-5.20 [facility] WBC (Bld) [#/Vol] 11.05 10*3/uL High 3.70-11.00 [facility] CONSULT PROGon 01-20-2021 CONSULT PROG HNO ID: [id number] Author: Rajendra Cruz MD Service: Nephrology Author Type: Physician Type: Consult Progress Note Filed: 01/20/2021 1:44 PM Note Text: [facility] NEPHROLOGY CONSULT PROGRESS NOTE SERVICE DATE: January [...] DATE: January 20, 2021 1:43 PM PHONE: [phone] FOR AFTER HOUR CONCERNS BETWEEN 7PM - 7AM CONTACT ON-CALL NEPHROLOGY STAFF Normal [facility] THERAPY [facility] 01-20-2021 THERAPY NT HNO ID: [id number] Author: Afia Radford, PT Service: Physical Therapy Author Type: Physical Therapist Type: Therapy (PT/OT/Speech/Resp) Filed: 01/20/2021 3:32 PM Note Text: Physical Therapy Treatment SERVICE DATE: 01/20/2021 SERVICE TIME: 1330 to 1353 ROOM: [place] [address] Recommended Discharge Disposition: Home PT Recommended Discharge [...] 0 Tub/Shower Type: tub shower Laundry: basement, [id number] Equipment Owned: Cane;Standard Walker Prior Functional Level: [...] Diagnosis: Reduced mobility-other Interventions Provided: Gait Training (31239);Therapeutic Exercise (89539) Therapeutic Exercise (35979) Treatment Minutes: 8 Pt performed in supine position: AP, QS, GS x 10 B LE, pt instructed to do every hour while awake on their own. 7 days a week, HS, hip ABD, SAQ, SLR 10-20 reps/ 2-3x/day/ 7 days/week Gait Training (90561) Treatment Minutes: 15 $ Gait Training (44630) Billed Units: 1 unit Training AND education [...] 2021 TIME: (more content not included)... Normal [facility] THERAPY NT HNO ID: [id number] Author: Heidy Wright, OT/L Service: Occupational Therapy Author Type: Occupational Therapist Type: Therapy (PT/OT/Speech/Resp) Filed: 01/20/2021 12:15 PM Note Text: Occupational Therapy Treatment SERVICE DATE: 01/20/2021 SERVICE TIME: 1155 to 1205 ROOM: [place] [address] Recommended Discharge Disposition: Home OT Recommended Discharge [...] 0 Tub/Shower Type: tub shower Laundry: basement, [id number]-ebg Equipment Owned: Cane;Standard Walker Prior Functional Level: [...] and signs-other Interventions Provided: Self Penitentiary Management (20286) Self Penitentiary Management (09295) Treatment Minutes: 10 $ Self Penitentiary Management (34131) Billed Units: 1 unit Training AND education provided in: Benefits of in (more content not included)... Normal [facility] THERAPY NT HNO ID: [id number] Author: Heidy Wright OT/Broderick Service: Occupational Therapy Author Type: Occupational Therapist Type: Therapy (PT/OT/Speech/Resp) Filed: 01/20/2021 8:24 AM Note Text: OCCUPATIONAL THERAPY MISSED VISIT SERVICE DATE: 01/20/2021 SERVICE TIME: 0820 to 0820 ROOM: [place] [address] Attempted Treatment. Patient not seen due to Declined. Pt states, It's too early when OT attempted to work with her. Will re-attempt as schedule permits. SIGNATURE: Heidy Wright OT/Broderick PATIENT NAME: Aislinn Wheeler DATE: January 20, 2021 TIME: 8:24 AM [facility] Basic Metabolic Panlon 01-19 Anion gap [Moles/Vol] 11 mmol/L Normal 9-18 [facility] Calcium [Mass/Vol] 8.5 mg/dL Normal 8.5-10.2 [facility]ital Chloride [Moles/Vol] 93 mmol/L Low 97-105 [facility] CO2 [Moles/Vol] 24 mmol/L Normal 22-30 [facility] Creatinine [Mass/Vol] 1.92 mg/dL High 0.58-0.96 [facility] eGFR- Amer. 32 Normal [facility] ospital eGFR-All Other Races 26 . Normal [facility] Comment on above: Result Comment: eGFR [...] GFR. Glucose [Mass/Vol] 268 mg/dL High 74-99 [facility] Comment on above: Result Comment: [...] 1). Potassium [Moles/Vol] 4.2 mmol/L Normal 3.7-5.1 [facility] Sodium [Moles/Vol] 128 mmol/L Low 136-144 [facility] Urea nitrogen [Mass/Vol] 77 mg/dL High 7-21 [facility] Anion gap [Moles/Vol] 11 mmol/L Normal 9-18 [facility] Calcium [Mass/Vol] 8.3 mg/dL Low 8.5-10.2 [facility] Chloride [Moles/Vol] 88 mmol/L Low 97-105 [facility] CO2 [Moles/Vol] 23 mmol/L Normal 22-30 [facility] Creatinine [Mass/Vol] 1.93 mg/dL High 0.58-0.96 [facility] eGFR- Amer. 32 Normal [facility] eGFR-All Other Races 26 . Normal [facility] Comment on above: Result Comment: eGFR [...] GFR. Glucose [Mass/Vol] 292 mg/dL High 74-99 [facility] Comment on above: Result Comment: [...] 1). Potassium [Moles/Vol] 3.8 mmol/L Normal 3.7-5.1 [facility] Sodium [Moles/Vol] 122 mmol/L Low 136-144 [facility] Urea nitrogen [Mass/Vol] 82 mg/dL High 7-21 [facility] CBCon 01-19-2021 Absolute nRBC <0.01 Normal <0.01 [facility] Erythrocyte distribution width (RBC) [Ratio] 12.8 % Normal 11.5-15.0 [facility] Hematocrit (Bld) [Volume fraction] 27.5 % Low 36.0-46.0 [facility] Hemoglobin (Bld) [Mass/Vol] 9.1 g/dL Low 11.5-15.5 [facility] MCH 24.9 pG Low 26.0-34.0 [facility] MCHC (RBC) [Mass/Vol] 33.1 g/dL Normal 30.5-36.0 [facility] MCV (RBC) [Entitic vol] 75.1 fL Low 80.0-100.0 [facility] Platelet mean volume (Bld) [Entitic vol] 11.2 fL Normal 9.0-12.7 [facility] Platelets (Bld) [#/Vol] 297 10*3/uL Normal 150-400 [facility] RBC (Bld) [#/Vol] 3.66 10*6/uL Low 3.90-5.20 [facility] WBC (Bld) [#/Vol] 12.14 10*3/uL High 3.70-11.00 [facility] CONSULT PROGon 01-19-2021 CONSULT PROG HNO ID: [id number] Author: Rajendra Cruz MD Service: Nephrology Author Type: Physician Type: Consult Progress Note Filed: 01/19/2021 2:40 PM Note Text: [facility] NEPHROLOGY CONSULT PROGRESS NOTE SERVICE DATE: January [...] DATE: January 19, 2021 2:27 PM PHONE: [phone] FOR AFTER HOUR CONCERNS BETWEEN 7PM - 7AM CONTACT ON-CALL NEPHROLOGY STAFF [facility] 01-19-2021 NUTRITION HNO ID: [id number] Author: Michelle Louis RD Service: Nutrition Therapy [...] history;Intake records;Patient/family self-report;Weight loss;Nausea;Vomiting Estimated kilocalorie needs: 9390-3626 Calorie Calculation Method: 30-35 kcals/kg Estimated protein [...] January 19, 2021 TIME: 10:59 AM PAGER: [id number] I have reviewed the nutritional assessment note documented by the advisory intern and I personally participated in the miller components. I have discussed the case and nutritional management of the patient's care. Michelle Louis MS,RD,LD,[facility] THERAPY NTon 01-19-2021 THERAPY NT HNO ID: [id number] Author: Afia Radford, PT Service: Physical Therapy Author Type: Physical Therapist Type: Therapy (PT/OT/Speech/Resp) Filed: 01/19/2021 2:57 PM Note Text: Physical Therapy Evaluation SERVICE DATE: 01/19/2021 SERVICE TIME: 1307 to 1331 ROOM: [place] [address] Recommended Discharge Disposition: Home PT Anticipated Discharge [...] 0 Tub/Shower Type: tub shower Laundry: basement, [id number] Equipment Owned: Cane;Standard Walker Prior Functional Level: [...] Diagnosis: Reduced mobility-other Interventions Provided: Evaluation;Therapeutic Exercise (33902);Gait Training (57492) $ Evaluation-Low (24824) Billed Units: 1 unit Therapeutic Exercise (19308) Treatment Minutes: 1 Patient performed in seated position: Marching, AP/HR, hip ABD, LAQ x10 B LE- instructions written on white board for pt to complete on her own. Gait Training (65942) Treatment Minutes: 8 $ Gait Training (43377) Billed Units: 1 unit Training AND education [...] present during visit: Aleksander Syed, DELFIN Normal [facility] Basic Metabolic Panlon 01-18 Anion gap [Moles/Vol] 13 mmol/L Normal 9-18 [facility] Calcium [Mass/Vol] 8.8 mg/dL Normal 8.5-10.2 [facility]spital Chloride [Moles/Vol] 88 mmol/L Low 97-105 [facility] CO2 [Moles/Vol] 22 mmol/L Normal 22-30 [facility] Creatinine [Mass/Vol] 2.21 mg/dL High 0.58-0.96 [facility] eGFR- Amer. 27 Normal [facility]spital eGFR-All Other Races 23 . Normal [facility] Comment on above: Result Comment: eGFR [...] 1). Potassium [Moles/Vol] 3.7 mmol/L Normal 3.7-5.1 [facility] Sodium [Moles/Vol] 123 mmol/L Low 136-144 [facility] Urea nitrogen [Mass/Vol] 93 mg/dL High 7-21 [facility] Anion gap [Moles/Vol] 16 mmol/L Normal 9-18 [facility] Calcium [Mass/Vol] 9.0 mg/dL Normal 8.5-10.2 [facility] Chloride [Moles/Vol] 93 mmol/L Low 97-105 [facility] CO2 [Moles/Vol] 21 mmol/L Low 22-30 [facility] Creatinine [Mass/Vol] 2.59 mg/dL High 0.58-0.96 [facility] eGFR- Amer. 23 Normal [facility] eGFR-All Other Races 19 . Normal [facility] Comment on above: Result Comment: eGFR [...] GFR. Glucose [Mass/Vol] 130 mg/dL High 74-99 [facility] Comment on above: Result Comment: [...] 1). Potassium [Moles/Vol] 4.7 mmol/L Normal 3.7-5.1 [facility] Sodium [Moles/Vol] 130 mmol/L Low 136-144 [facility] Urea nitrogen [Mass/Vol] 97 mg/dL High 7-21 [facility] CASE MGT INIT [facility] 2020 CASE MGT INIT [facility] HNO ID: [id number] Author: Nicol Landin RN Service: ? 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 AD Completion: Yes [...] and plan for meeting these needs: Patient's viyrcuuk-lp-bpf and son live close by and come over to help often Patient's perception of need for this admission: necessary Medication Adherance I am convinced of the importance of my prescription medication: 0 - Agree Completely I worry that my prescription medication will do more harm than good to me : 0 - Disagree Completely I feel financially burdened by my dnm-sa-foctdc expenses for my prescription medication:: 0 - Disagree Completely Risk Score: 0 Patient is categorized as: Low risk < 2 Are you interested in bedside delivery of your medications? Yes Is Patient Psychosocially Complex?: Yes, refer to Social Work ASSESSMENT AND PLAN: Medical Needs: Medical Needs: Two or more chronic diseases Psychosocial Needs: Psychosocial Needs: None FREEDOM OF CHOICE EXPLAINED: [place] of Choice Given: No Reason Not Given: [...] and hospitalized about 1 month ago in [place] but no resolution of her symptoms. She [...] 18, 2021 TIME: 10:51 AM PAGER/CONTACT #: [phone] Normal [facility] CBCon 01-18-2021 Absolute nRBC <0.01 Normal <0.01 [facility] al Erythrocyte distribution width (RBC) [Ratio] 13.0 % Normal 11.5-15.0 [facility] Hematocrit (Bld) [Volume fraction] 31.2 % Low 36.0-46.0 [facility] Hemoglobin (Bld) [Mass/Vol] 9.9 g/dL Low 11.5-15.5 [facility] MCH 24.4 pG Low 26.0-34.0 [facility] MCHC (RBC) [Mass/Vol] 31.7 g/dL Normal 30.5-36.0 [facility] MCV (RBC) [Entitic vol] 77.0 fL Low 80.0-100.0 [facility] Platelet mean volume (Bld) [Entitic vol] 10.8 fL Normal 9.0-12.7 [facility] Platelets (Bld) [#/Vol] 310 10*3/uL Normal 150-400 [facility] RBC (Bld) [#/Vol] 4.05 10*6/uL Normal 3.90-5.20 [facility] WBC (Bld) [#/Vol] 17.03 10*3/uL High 3.70-11.00 [facility] CONSULTon 01-18-2021 CONSULT HNO ID: [id number] Author: Annie Trinidad DO Service: Hypertension AND [...] no-show appointment to urology at [facility]. She also reports that she has [...] for n (more content not included)... Normal [facility] CONSULT HNO ID: [id number] Author: Taurus Ballard MD Service: Urology Author Type: Physician Type: Consults Filed: 01/18/2021 8:27 AM Note Text: [facility] UROLOGY CONSULT [...] the pa (more content not included)... Normal [facility] Creatinine,Urine,Ranon 01-18 Creatinine,Urine,Ran 33.5 mg/dL Normal 20-300 [facility] Comment on above: Performed By: #### U SAUNDRA, UOSM, UCRR ####[facility] [address] [place], [place] [phone] Magnesiumon 01-18-2021 Magnesium [Mass/Vol] 1.9 mg/dL Normal 1.7-2.3 [facility] NURSING PROGon 01-18-2021 NURSING PROG HNO ID: [id number] Author: Barbara Spicer RN Service: ? Author Type: Registered Nurse Type: Nursing Progress Note Filed: 01/18/2021 10:28 AM Note Text: Nursing Progress Note Patient Name: Aislinn Wheeler Patient Location: / Daily Note:pt report given to pete LE. Pt VSS. Pt belongings packed. This note was completed by: Barbara Spicer Normal [facility] Osmolalityon 01-18-2021 Osmolality [Osmolality] 298 mosm/kg Normal 275-300 [facility] Comment on above: Performed By: #### O SM ####[facility] [address] [place], [place] [phone] Osmolality, Urineon 01-19-20 21 Osmolality, Urine 273 mOsm/kg Normal 50-1200 [facility] Comment on above: Performed By: #### U SAUNDRA, UOSM, UCRR ####[facility] [place], [place] [phone] Sepsis Lactateon 01-18-2021 Sepsis Lactate 0.9 mmol/L Normal <2.1 [facility] Sodium,Urine,Randomon 2020 Sodium (U) [Moles/Vol] 32 mmol/L Normal 14-216 [facility] Comment on above: Performed By: #### U SAUNDRA, UOSM, UCRR ####[facility] [place], [place] [phone] THERAPY NTon 01-18-2021 THERAPY NT HNO ID: [id number] Author: Wendy Montes De Oca OT/Broderick Service: Occupational Therapy Author Type: Occupational Therapist Type: Therapy (PT/OT/Speech/Resp) Filed: 01/18/2021 1:10 PM Note Text: Occupational Therapy Evaluation SERVICE DATE: 01/18/2021 SERVICE TIME: 0854 to 0915 ROOM: [place] [address] Recommended Discharge Disposition: Home OT Recommended Discharge [...] 0 Tub/Shower Type: tub shower Laundry: basement, xdxmqijw-vv-vjn Equipment Owned: Cane;Standard Walker CURRENT FUNCTIONAL STATUS: [...] and signs-other Interventions Provided: Evaluation $ Evaluation-Moderate (42670) Billed Units: 1 unit Training and education [...] DATE: January 18, 2021 TIME: 1:06 PM [facility] Urine Cultureon 01-18-2021 Bacteria identified Cx Nom (U) Sp. Request/Comment: - Specimen received in preservative Culture Result - No growth (<1,000 CFU/ml) [facility] Comment on above: Performed By: #### U RCUL ####[facility] [address] [place], [place] [phone] Blood Cultureon 01-17-2021 Bacteria identified Cx Nom (Bld) Culture Result - No growth 5 days Normal [facility] Comment on above: Performed By: #### B LCUL ####[facility] [address] [place], [place] [phone] C-Reactive Proteinon 021 C-Reactive Protein 32.4 mg/dL High <0.9 [facility] Comment on above: Performed By: #### W SR ####[facility] [address] [place], [place] [phone] CBC and Differentialon 01-17 Abs Baso <0.03 Normal <0.11 [facility] Abs Eosin <0.03 Normal <0.46 [facility] Abs [place] 0.73 k/uL Normal <0.87 [facility] Abs Neut 14.70 k/uL High 1.45-7.50 [facility] Absolute nRBC <0.01 Normal <0.01 [facility] Basophils/100 WBC (Bld) 0.1 % Normal [facility] DTYPE Auto Diff Normal [facility] Eosinophils/100 WBC (Bld) 0.0 % Normal [facility] Erythrocyte distribution width (RBC) [Ratio] 13.1 % Normal 11.5-15.0 [facility] Hematocrit (Bld) [Volume fraction] 35.1 % Low 36.0-46.0 [facility] Hemoglobin (Bld) [Mass/Vol] 11.3 g/dL Low 11.5-15.5 [facility] Lymphocytes (Bld) [#/Vol] 1.88 10*3/uL Normal 1.00-4.00 [facility] Lymphocytes/100 WBC (Bld) 10.8 % Normal [facility] MCH 24.2 pG Low 26.0-34.0 [facility] MCHC (RBC) [Mass/Vol] 32.2 g/dL Normal 30.5-36.0 [facility] MCV (RBC) [Entitic vol] 75.2 fL Low 80.0-100.0 [facility] Monocytes/100 WBC (Bld) 4.2 % Normal [facility] Neutrophils/100 WBC (Bld) 84.9 % Normal [facility] NRBCs 0.0 /100 WBC Normal 0 [facility] l Platelet mean volume (Bld) [Entitic vol] 11.4 fL Normal 9.0-12.7 [facility] l Platelets (Bld) [#/Vol] 345 10*3/uL Normal 150-400 [facility] RBC (Bld) [#/Vol] 4.67 10*6/uL Normal 3.90-5.20 [facility] WBC (Bld) [#/Vol] 17.33 10*3/uL High 3.70-11.[address] [facility] [address] ABD/PEL WO IVCONon 2020 CT ABD/PEL WO IVCON * * *Final Report* * * DATE OF EXAM: Jan 17 2021 8:05PM [facility] 0531 - CT ABD/PEL WO IVCON / PROCEDURE REASON: Mass or lump, abdomen pelvis * * * * Physician Interpretation * * * * CT OF CHEST, ABDOMEN AND PELVIS WITHOUT CONTRAST CLINICAL HISTORY: Aspiration (accession [id number]), Mass or lump, abdomen pelvis (accession [id number]) Concern for possible source of infection vs [...] report for details. Pelvic bones are intact. Flight Radio Operator (topogram) images: Unremarkable. IMPRESSION: Left upper [...] be communicated with the ordering provider via Itiva staff message or phone message by Imaging Support Services within 2 business days of report finalization. ACTIONABLE RESULT: FOLLOW-UP Acuity: Actionable Findings: Kidneys/Ureters/Bladder /Adrenal Routing Code: GU_1 Recommendation: MRI KIDNEY WO/W IVCON Time Frame: non-urgent, but prompt follow-up. COMMUNICATION: Results will be communicated with the ordering provider via Itiva staff message or phone message by Imaging Support Services within 2 business days of report finalization. Algorithms for management of incidental imaging findings can be found on the [facility] Intranet Sharepoint site at: [email or web address] [email or web address] Managing%20Incidental%2 0Findi ngs%20at%20Imaging/Form s/AllItems.aspx Rug Setter [place]: GUILLE Transcribe Date/Time: Jan 17 2021 8:20P Dictated by : PADILLA JIM MD This examination was interpreted and the report reviewed and electronically signed by: PADILLA JIM MD on Jan 17 2021 8:43PM EST [id number] ACTIONABLE Invalid Interpretation Code [facility] CT BRAIN WO IVCONon 01-18-[address] BRAIN WO IVCON * * *Final Report* * * DATE OF EXAM: Jan 17 2021 4:26PM [facility] 0504 - CT BRAIN WO IVCON [...] base and imaged soft tissues are unremarkable. Flight Radio Operator (topogram) images: No additional findings. IMPRESSION: No acute intracranial hemorrhage or mass effect is seen Rug Setter [place]: GUILLE Transcribe Date/Time: Jan 17 2021 4:47P Dictated by : JOHN THAKKAR MD This examination was interpreted and the report reviewed and electronically signed by: JOHN THAKKAR MD on Jan 17 2021 4:48PM EST [id number] Normal [facility] CT CERVICAL SPINE WO IVCONon 01-17-2021 CT CERVICAL SPINE WO IVCON * * *Final Report* * * DATE OF EXAM: Jan 17 2021 4:26PM [facility] 0505 - CT CERVICAL SPINE WO [...] Counting reference: Craniocervical junction. Anatomic Variants: None. Flight Radio Operator (topogram) images: No additional findings. Alignment: [...] vertebrae with counting from the craniocervical junction. Rug Setter [place]: PSCB Transcribe Date/Time: Jan 17 2021 4:49P Dictated by : JOHN THAKKAR MD This examination was interpreted and the report reviewed and electronically signed by: JOHN THAKKAR MD on Jan 17 2021 4:53PM EST [id number] Normal [facility] CT CHEST WO IVCONon 01-18-20 CT CHEST WO IVCON * * *Final Report* * * DATE OF EXAM: Jan 17 2021 8:05PM [facility] 0541 - CT CHEST WO IVCON / PROCEDURE REASON: Aspiration * * * * Physician Interpretation * * * * CT OF CHEST, ABDOMEN AND PELVIS WITHOUT CONTRAST CLINICAL HISTORY: Aspiration (accession [id number]), Mass or lump, abdomen pelvis (accession [id number]) Concern for possible source of infection vs [...] report for details. Pelvic bones are intact. Flight Radio Operator (topogram) images: Unremarkable. IMPRESSION: Left upper [...] be communicated with the ordering provider via Itiva staff message or phone message by [facility] within 2 business days of report finalization. ACTIONABLE RESULT: FOLLOW-UP Acuity: Actionable Findings: Kidneys/Ureters/Bladder /Adrenal Routing Code: GU_1 Recommendation: MRI KIDNEY WO/W IVCON Time Frame: non-urgent, but prompt follow-up. COMMUNICATION: Results will be communicated with the ordering provider via Itiva staff message or phone message by [facility] within 2 business days of report finalization. Algorithms for management of incidental imaging findings can be found on the [facility] Intranet Sharepoint site at: [email or web address] Managing%20Incidental%2 0Findi ngs%20at%20Imaging/Form s/AllItems.aspx Rug Setter [place]: GUILLE Transcribe Date/Time: Jan 17 2021 8:20P Dictated by : PADILLA JIM MD This examination was interpreted and the report reviewed and electronically signed by: PADILLA JIM MD on Jan 17 2021 8:43PM EST [id number] ACTIONABLE Invalid Interpretation Code [facility] CT LUMBAR SPINE WO IVCONon 0 01-17-2021 CT LUMBAR SPINE WO IVCON * * *Final Report* * * * * * SEE BOTTOM OF REPORT FOR ADDENDED TEXT * * * DATE OF EXAM: Jan 17 2021 5:34PM [facility] 0508 - CT LUMBAR SPINE WO [...] are 5 lumbar-type vertebrae. Anatomic variant: None. Flight Radio Operator (topogram) images: No additional findings. Alignment: [...] on 01/17/2021 6:08 PM via verbal communication. Rug Setter [place]: GUILLE Transcribe Date/Time: Jan 17 2021 6:05P Dictated by : JOHN THAKKAR MD This examination was interpreted and the report reviewed and electronically signed by: JOHN THAKKAR MD on Jan 17 2021 6:01PM EST This document has been addended by: JOHN THAKKAR MD on Jan 17 2021 6:08PM EST [id number] [facility] CT THORACIC SPINE WO IVCONon 01-17-2021 CT THORACIC SPINE WO IVCON * * *Final Report* * * DATE OF EXAM: Jan 17 2021 5:34PM [facility] 0514 - CT THORACIC SPINE WO [...] the purposes of this report, anatomic variants: Flight Radio Operator (topogram) images: No additional findings. Alignment: [...] and assume there are 5 lumbar-type vertebrae. Rug Setter [place]: GUILLE Transcribe Date/Time: Jan 17 2021 6:03P Dictated by : JOHN THAKKAR MD This examination was interpreted and the report reviewed and electronically signed by: JOHN THAKKAR MD on Jan 17 2021 6:13PM EST [id number] Normal [facility] Comp Metabolic Panelon 01-17 Albumin [Mass/Vol] 3.0 g/dL Low 3.9-4.9 [facility] ALP [Catalytic activity/Vol] 162 U/L High 34-123 [facility] ALT [Catalytic activity/Vol] 7 U/L Normal 7-38 [facility] Anion gap [Moles/Vol] 17 mmol/L Normal 9-18 [facility] AST [Catalytic activity/Vol] 15 U/L Normal 13-35 [facility] Bilirubin [Mass/Vol] 0.4 mg/dL Normal 0.2-1.3 [facility] Calcium [Mass/Vol] 9.6 mg/dL Normal 8.5-10.2 [facility] Chloride [Moles/Vol] 83 mmol/L Low 97-105 [facility] CO2 [Moles/Vol] 20 mmol/L Low 22-30 [facility] Creatinine [Mass/Vol] 2.93 mg/dL High 0.58-0.96 [facility] eGFR- Amer. 20 Normal [facility] eGFR-All Other Races 16 . Normal [facility] Comment on above: Result Comment: eGFR [...] 1). Potassium [Moles/Vol] 5.5 mmol/L High 3.7-5.1 [facility] Protein [Mass/Vol] 9.5 g/dL High 6.3-8.0 [facility] Sodium [Moles/Vol] 120 mmol/L Low 136-144 [facility] Comment on above: Result Comment: Resu lt checked and verified Urea nitrogen [Mass/Vol] 104 mg/dL High 7-21 [facility] ED NOTEon 01-17-2021 ED NOTE HNO ID: [id number] Author: Prerna Luke RN Service: ? Author Type: Registered Nurse Type: ED Notes Filed: 01/17/2021 9:32 PM Note Text: Report called to 4E RN. Patient stable for transport at this time. [facility] ED NOTE HNO ID: [id number] Author: Prerna Luke RN Service: ? Author Type: Registered Nurse Type: ED Notes Filed: 01/17/2021 9:20 PM Note Text: 16Fr chaves inserted with 500 cc urine immediately drained. Patient tolerated well. [facility] ED NOTE HNO ID: [id number] Author: Prerna Luke RN Service: ? Author Type: Registered Nurse Type: ED Notes Filed: 01/17/2021 7:22 PM Note Text: BC obtained by lab. ABX infusing at this time. [facility] ED NOTE HNO ID: [id number] Author: Prerna Luke RN Service: ? Author Type: Registered Nurse Type: ED Notes Filed: 01/17/2021 7:06 PM Note Text: This RN and 2 medics unable to straight stick patient for blood or draw from existing IVs. Lab will draw one set of BC; GIANNI Tucker notified that only one set will be obtained. [facility] ED NOTE HNO ID: [id number] Author: Prerna Luke RN Service: ? Author Type: Registered Nurse Type: ED Notes Filed: 01/17/2021 4:25 PM Note Text: XR at bedside [facility] ED NOTE HNO ID: [id number] Author: Prerna Luke RN Service: ? Author Type: Registered Nurse Type: ED Notes Filed: 01/17/2021 4:03 PM Note Text: covid swab obtained and walked to lab. [facility] ED NOTE HNO ID: [id number] Author: Bharat Patterson RN Service: ? Author [...] Reports oral intake has been poor Normal [facility] ED PROV NOTEon 01-17-2021 ED PROV NOTE HNO ID: [id number] Author: Garrett Simon PA-C Service: Emergency Medicine Author Type: Physician It Data Architect Type: ED Provider Notes Filed: 01/17/2021 9:27 [...] significant midlin (more content not included)... Normal [facility] HISTORY PHYSICALon HISTORY PHYSICAL HNO ID: [id number] Author: Trevor Porras MD Service: Hospital Medicine Author Type: Physician Type: HANDP Filed: 01/17/2021 10:12 PM Note Text: DEPARTMENT OF HOSPITAL MEDICINE HISTORY AND PHYSICAL EXAM SERVICE DATE: 01/17/2021 Code Status: Not on file SERVICE TIME: 10:00 PM Primary Care Physician: No Pcp NIGHT AND WEEKEND COVERAGE: [place] COVERAGE: Days: [phone], please contact via Itiva [employer] Nights: [phone], please page CC Hospitalist Night coverage pager [phone] Subjective CHIEF COMPLAINT: Generalized weakness, falls HPI: [...] Most recen (more content not included)... Normal [facility] Intermed Rapid COVIDon 01-17 SARS-CoV-2 (COVID-19) RNA ADRIEL+probe Ql (Unsp spec) UPPER RESPIRATORY TRACT SWAB Normal [facility] Comment on above: Performed By: #### I TCOVD ####[facility] [place], [place] [phone] SARS-CoV-2 (COVID-19) RNA ADRIEL+probe Ql (Unsp spec) Negative for COVID19 (SARS CoV2) by RT-PCR or equivalent method. Normal Negative for COVID19 (SARS CoV2) by RT-PCR or equivalent method. [facility] Comment on above: Result Comment: This test was developed and its performance characteristics determined by [facility]'s [facility] [place]. This test has been authorized by FDA under an Emergency Use Authorization (EUA). This test has been validated in accordance with the FDA's Guidance Document Policy for Diagnostics Testing in Laboratories Certified to Perform High Complexity Testing under CLIA prior to Emergency use Authorization for Coronavirus Disease 2019 during the Public Health Emergency issued on October 19, 2019. Test performed by [facility], [facility] [place], [address], [place] [address]. Performed By: #### I TCOVD ####[place] [id number] [place], [place] [phone] Magnesiumon 01-17-2021 Magnesium [Mass/Vol] 2.0 mg/dL Normal 1.7-2.3 [facility] NT Pro BNPon 01-17-2021 PRO B Natr Peptide 394 pg/mL High <125 [facility] Sed Rate Westergrenon 2020 Sed Rate Westergren 124 mm/hr High 0-20 [facility] Comment on above: Performed By: #### W SR ####[facility] [place], [place] [phone] TSHon 01-17-2021 TSH Qn 0.615 m[IU]/L [facility] 0.270-[facility].200 [facility] 01-17-2021 Troponin T.cardiac [Mass/Vol] 0.023 ug/L Normal 0.000-0.029 [facility] Urinalysis with Microscopico n 01-17-2021 Bacteria Present Critically abnormal 0 [facility] Bilirubin, Urine Negative Normal Negative [facility] pital Cast SEE COMMENT Normal 0 [facility] Comment on above: Result Comment: 0 Clarity (U) Turbid Critically abnormal Clear [facility] Color (U) Yellow Normal Yellow [facility] Glucose Ql (U) Negative Normal Negative [facility] tae Hemoglobin/Blood,Ur 2+ Critically abnormal Negative [facility] Ketones Ql (U) Negative Normal Negative [facility] tae Leukest 3+ Critically abnormal Negative [facility] Nitrite Ql (U) Positive Critically abnormal Negative [facility] pH (U) 8.5 [pH] High 5.0-8.0 [facility] Protein, Urine 2+ Critically abnormal Negative [facility] RBC 3-5 Critically abnormal 0-3 [facility] Specific [place], Ur 1.013 Normal 1.005-1.030 [facility] Urobilinogen Qn (U) 0.2 {Madeleine'U}/dL Normal 0.2-1.0 [facility] WBC (U) [#/Vol] /uL Critically abnormal 0-5 [facility] Urine Cultureon 01-17-2021 Bacteria identified Cx [...] F Ertapenem SUSCEPTIBLE <=0.5 F Critically abnormal [facility] Comment on above: Performed By: #### U RCUL ####[facility] [address] [place], [place] [phone] XR CHEST 1V FRONTAL PORTon 0 01-17-2021 [...] exam with no evidence of acute disease. Rug Setter [place]: GUILLE Transcribe Date/Time: Jan 17 2021 4:40P Dictated by : FLASH WOODS MD This examination was interpreted and the report reviewed and electronically signed by: FLASH WOODS MD on Jan 17 2021 4:41PM EST [id number] Normal [facility] Vital Signs Date Time Vital Sign Value Performing Clinician Facility 07-03-2024 11:59-0500 Body height 152.4 cm SpiderOak [facility] 07-03-2024 11:59-0500 Body mass index (BMI) [Ratio] 23.83 kg/m2 Upstreamff [facility]-C [facility] 07-03-2024 11:59-0500 Body weight 55.34 kg Upstreamff PA-C Work Phone: [facility] 07-03-2024 11:59-0500 Diastolic blood pressure 94 mm[Hg] Upstreamff [facility] 07-03-2024 11:59-0500 Heart rate 80 /min Sweta Verhoff PA-C Work Phone: [facility] 07-03-2024 11:59-0500 SaO2% (BldA) [Mass fraction] 100 % Sweta Verhoff PA-C Work Phone: [facility] 07-03-2024 11:59-0500 Systolic blood pressure 144 mm[Hg] Sweta Verhoff PA-C Work Phone: [facility] 06-11-2024 11:32-0400 Body height 152.4 cm Agusto Aichholz SORTER/ASSAY TECH Work Phone: [facility] 06-11-2024 11:32-0400 Body mass index (BMI) [Ratio] 25.19 kg/m2 Agusto Aichholz SORTER/ASSAY TECH Work Phone: [facility] 06-11-2024 11:32-0400 Body temperature 98.1 [degF] Agusto Aichholz SORTER/ASSAY TECH Work Phone: [facility] 06-11-2024 11:32-0400 Body weight 58.51 kg Agusto Aichholz SORTER/ASSAY TECH Work Phone: [facility] 06-11-2024 11:32-0400 Diastolic blood pressure 82 mm[Hg] Agusto Aichholz SORTER/ASSAY TECH Work Phone: [facility] 06-11-2024 11:32-0400 Heart rate 75 /min Agusto Aichholz SORTER/ASSAY TECH Work Phone: [facility] 06-11-2024 11:32-0400 Respiratory rate 18 /min Agusto Aichholz SORTER/ASSAY TECH Work Phone: [facility] 06-11-2024 11:32-0400 SaO2% (BldA) [Mass fraction] 97 % Agusto Aichholz SORTER/ASSAY TECH Work Phone: [facility] 06-11-2024 11:32-0400 Systolic blood pressure 140 mm[Hg] Agusto Aichholz SORTER/ASSAY TECH Work Phone: [place] [id number] 15:05-0400 Body height 154.94 cm [facility] 06-05-2024 15:05-0400 Body mass index (BMI) [Ratio] 23.4 kg/m2 [facility] 06-05-2024 15:05-0400 Body temperature 97.6 [degF] [facility] 06-05-2024 15:05-0400 Body weight 56.3 kg [facility] 06-05-2024 15:05-0400 Diastolic blood pressure 75 mm[Hg] [facility] 06-05-2024 15:05-0400 Heart rate 86 /min [facility] 06-05-2024 15:05-0400 Respiratory rate 16 /min [facility] 06-05-2024 15:05-0400 SaO2% (BldA) [Mass fraction] 97 % [facility] 06-05-2024 15:05-0400 Systolic blood pressure 123 mm[Hg] [facility] 05-01-2024 10:45-0400 Diastolic blood pressure 96 mm[Hg] Juanito Barnard MD Work Phone: [facility] 05-01-2024 10:45-0400 Heart rate 74 /min Juanito Barnard MD Work Phone: [facility] 05-01-2024 10:45-0400 Systolic blood pressure 173 mm[Hg] Juanito Barnard MD Work Phone: [facility] 04-16-2024 14:25-0400 Body height 152.4 cm Agusto Olmstead SORTER/ASSAY TECH Work Phone: [facility] 04-16-2024 14:25-0400 Body mass index (BMI) [Ratio] 24.88 kg/m2 Agusto Olmstead SORTER/ASSAY TECH Work Phone: [facility] 04-16-2024 14:25-0400 Body temperature 97.81 [degF] Agusto Olmstead SORTER/ASSAY TECH Work Phone: [facility] 04-16-2024 14:25-0400 Body weight 57.79 kg Agusto Olmstead SORTER/ASSAY TECH Work Phone: [facility] 04-16-2024 14:25-0400 Diastolic blood pressure 80 mm[Hg] Agustosahara Zapataholz SORTER/ASSAY TECH Work Phone: [facility] 04-16-2024 14:25-0400 Heart rate 80 /min Agustosahara Zapataholz SORTER/ASSAY TECH Work Phone: [facility] 04-16-2024 14:25-0400 Respiratory rate 18 /min Agusto Jodiholz SORTER/ASSAY TECH Work Phone: [facility] 04-16-2024 14:25-0400 SaO2% (BldA) [Mass fraction] 95 % Agustosahara Barlowz SORTER/ASSAY TECH Work Phone: [facility] 04-16-2024 14:25-0400 Systolic blood pressure 116 mm[Hg] Agusto Zapataholz SORTER/ASSAY TECH Work Phone: [facility] 03-26-2024 10:48-0400 Body mass index (BMI) [Ratio] 24.41 kg/m2 Carmenza Nolen MD Work Phone: [facility] 03-26-2024 10:48-0400 Body weight 56.7 kg Carmenza Nolen MD Work Phone: [facility] Comment on above: [facility] 01-12-2024 13:50-0400 Diastolic blood pressure 69 mm[Hg] Taurus Ballard MD Work Phone: [facility] 01-12-2024 13:50-0400 Heart rate 75 /min Taurus Ballard MD Work Phone: [facility] 01-12-2024 13:50-0400 Systolic blood pressure 142 mm[Hg] Taurus Ballard MD Work Phone: [facility] 10-25-2023 15:12-0500 Blood Pressure Location HEIDY ARNOLD [facility] 10-25-2023 15:12-0500 Body temperature 96.8 [degF] HEIDY CATALINA [facility] 10-25-2023 15:12-0500 Diastolic blood pressure 78 mm[Hg] HEIDY CATALINA [facility] 10-25-2023 15:12-0500 Heart rate 86 /min HEIDY CATALINA [facility] 10-25-2023 15:12-0500 Systolic blood pressure 122 mm[Hg] HEIDY CATALINA [facility] 08-01-2023 15:00-0500 Body height 154.94 cm [facility] 06-08-2023 13:00-0400 Body height 154.94 cm Tondra Mapus Other [employer] [facility] [employer] Other 06-08-2023 13:00-0400 Body mass index (BMI) [Ratio] 25.37 kg/m2 Tondra Mapus Other [employer] Other 06-08-2023 13:00-0400 Body weight 60.92 kg Tondra Mapus Other [employer] Other 06-08-2023 13:00-0400 Diastolic blood pressure 66 mm[Hg] Tondra Mapus Other [employer] Other 06-08-2023 13:00-0400 Respiratory rate 18 /min Tondra Mapus Other [employer] Other 06-08-2023 13:00-0400 SaO2% (BldA) [Mass fraction] 100 % Tondra Mapus Other [employer] Other 06-08-2023 13:00-0400 Systolic blood pressure 107 mm[Hg] Tondra Mapus Other [employer] Other 05-18-2023 11:00-0400 Body height 154.94 cm Tondra Mapus Other [employer] Other 05-18-2023 11:00-0400 Body mass index (BMI) [Ratio] 24.69 kg/m2 Tondra Mapus Other [employer] Other 05-18-2023 11:00-0400 Body weight 59.29 kg Tondra Mapus Other [employer] Other 05-18-2023 11:00-0400 Diastolic blood pressure 96 mm[Hg] Tondra Mapus Other [employer] Other 05-18-2023 11:00-0400 Respiratory rate 18 /min Tondra Mapus Other [employer] Other 05-18-2023 11:00-0400 SaO2% (BldA) [Mass fraction] 97 % Tondra Mapus Other [employer] Other 05-18-2023 11:00-0400 Systolic blood pressure 161 mm[Hg] Tondra Mapus Other [employer] Other 02-22-2023 08:34-0400 Blood Pressure Location Lisa Porras [facility] 02-22-2023 08:34-0400 Diastolic blood pressure 66 mm[Hg] Lisa Lue [facility] 02-22-2023 08:34-0400 Heart rate 76 /min Lisa Lue [facility] 02-22-2023 08:34-0400 Systolic blood pressure 106 mm[Hg] Lisa Lue [facility] 12-27-2022 16:00-0400 Body height 154.94 cm Eli [employer] Other [employer] [facility] [employer] Other 12-27-2022 16:00-0400 Body mass index (BMI) [Ratio] 26.11 kg/m2 Eli [employer] Other [employer] Other 12-27-2022 16:00-0400 Body temperature 96.5 [degF] [employer]zy[employer]et [employer] Other [employer] Other 12-27-2022 16:00-0400 Body weight 62.69 kg [employer] Other [employer] Other 12-27-2022 16:00-0400 Diastolic blood pressure 98 mm[Hg] Aziz [employer] Other [employer] Other 12-27-2022 16:00-0400 Respiratory rate 18 /min [employer] Other [employer] Other 12-27-2022 16:00-0400 SaO2% (BldA) [Mass fraction] 98 % [employer] Other [employer] Other 05-09-2023 16:00-0400 Systolic blood pressure 151 mm[Hg] Eli Sprague Other [place] [employer] Other 09-21-2022 08:42-0500 Blood Pressure Location Lisa Lue [facility] 09-21-2022 08:42-0500 Diastolic blood pressure 67 mm[Hg] Lisa Lue [facility] 09-21-2022 08:42-0500 Heart rate 74 /min Lisa Lue [facility] 09-21-2022 08:42-0500 Systolic blood pressure 103 mm[Hg] Lisa Lue [facility] Encounters Encounter Date Encounter Type Care Provider Facility Start: 08-08-2024 End: 08-08-2024 Clinisync Result Encounter Agusto Olmstead NP Work Phone: [facility] Unsolicited Start: 08-08-2024 End: 08-08-2024 Clinisync Result Encounter Agusto Olmstead NP Work Phone: [facility] Unsolicited Start: 07-15-2024 End: 07-26-2024 Refann Barreto RN [facility] Comment on above: 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; Complex regional pain syndrome type 1 of right upper extremity Start: 07-03-2024 End: 07-03-2024 Office outpatient visit 25 minutes Sweta Li PA-C Work Phone: [facility] Comment on above: Complex regional jeffrey n syndrome type 1 of right upper extremity (Primary Dx); Encounter for long-term opiate analgesic use Start: 07-03-2024 End: 07-03-2024 ambulatory SWETA [facility] Start: 06-26-2024 End: 06-26-2024 Telephone encounter Adama Velasco RN Work Phone: Urology Comment on above: 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; Returning Patient's Call Start: 06-11-2024 End: 06-11-2024 Bamboo flowsheet Agusto Olmstead SORTER/ASSAY TECH Work Phone: [facility] Start: 06-11-2024 End: 06-11-2024 Bamboo flowsheet Agusto Olmstead SORTER/ASSAY TECH Work Phone: [facility] Start: 06-11-2024 End: 06-11-2024 Office outpatient visit 25 minutes Agusto Olmstead NP Work Phone: [facility] Comment on above: Type 2 diabetes maria m itus with hyperglycemia, with long-term current use of insulin (CMS/[facility]) (Primary Dx); Type 2 diabetes mellitus with [...] diabetes mellitus with diabetic neuropathy, unspecified whether chcf insulin use (CMS/HCC); RSD (reflex sympathetic dystrophy); Continuous leakage of urine; 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, left, sequela (CMS/HCC); Skin lesion of face Start: 06-11-2024 End: 06-21-2024 ambulatory AGUSTO OLMSTEAD Not Available Comment on above: 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; Complex regional pain syndrome type 1 of right upper extremity Start: 06-05-2024 End: 06-05-2024 ambulatory [facility] Work Phone: Start: 06-05-2024 End: 06-05-2024 Patient encounter procedure [facility] Nephrology Ashlie Work Phone: Start: 05-10-2024 Non-patient / Non-visit [facility] Work Phone: Start: 05-08-2024 End: 05-08-2024 Refill Agusto Aysha SORTER/ASSAY TECH Work Phone: [facility] Comment on above: Nausea and vomiting, unspecified vomiting type (Primary Dx) Start: 05-01-2024 End: 05-06-2024 ambulatory Juanito Barnard [...] Start: 04-26-2024 End: 04-27-2024 Non-patient / Non-visit [facility] Work Phone: Start: 04-26-2024 End: 05-01-2024 Clinisync Result Encounter Generic External Data Provider [facility] External [facility] Unsolicited Start: 04-26-2024 End: 05-01-2024 Clinisync Result Encounter Generic External Data Provider [facility] External [facility] Unsolicited Start: 04-25-2024 End: 04-30-2024 Clinisync Result Encounter Generic External Data Provider [facility] External [facility] Unsolicited Start: 04-25-2024 End: 04-30-2024 Clinisync Result Encounter Generic External Data Provider [facility] External [facility] Unsolicited Start: 04-24-2024 End: 04-24-2024 ambulatory [facility] Start: 04-24-2024 End: 04-24-2024 ambulatory [facility] Start: 04-18-2024 End: 04-18-2024 Refill Agusto Cainz SORTER/ASSAY TECH Work Phone: [facility] Comment on above: Chronic cough (Prima ry Dx) Start: 04-16-2024 End: 04-16-2024 Office outpatient visit 25 minutes Agusto Olmstead SORTER/ASSAY TECH Work Phone: [facility] Comment on above: Chronic cough (Prima ry Dx); Type 2 diabetes mellitus with diabetic chronic kidney disease (HCC) ([facility]/HCC); Chronic kidney disease, stage 3b (HCC) ([facility]/HCC); Hyperparathyroidism, unspecified ([facility]/HCC); Rheumatoid arthritis, unspecified ([facility]/HCC); Malignant neoplasm of cervix uteri, unspecified ([facility]); Type 2 diabetes mellitus with hyperglycemia, with long-term current use of insulin ([facility]) Start: 04-16-2024 End: 04-16-2024 ambulatory AGUSTO AICHHOLZ Not Available Start: 04-16-2024 End: 04-16-2024 Bamboo flowsheet Agusto Olmstead SORTER/ASSAY TECH Work Phone: [facility] CW FM Start: 04-16-2024 End: 04-16-2024 Bamboo flowsheet Agusto Aysha SORTER/ASSAY TECH Work Phone: [facility] CW FM Start: 04-15-2024 End: 04-15-2024 ambulatory Chioma Lyon [facility] Start: 04-09-2024 End: 04-09-2024 ambulatory CARMENZA NOLEN Facility:[facility] Start: 04-09-2024 End: 04-09-2024 Patient encounter procedure Carmenza Nolen MD Work Phone: Urology Comment on above: Neurogenic bladder ( Primary Dx); BURKE (stress urinary incontinence, female) Start: 04-09-2024 End: 04-09-2024 Telemedicine consultation with patient Carmenza Nolen MD Work Phone: Urology Start: 04-08-2024 End: 04-08-2024 ambulatory [facility] Pul[facility] Medicine Start: 03-29-2024 End: 03-29-2024 Nursing evaluation of patient and report [employer] Urology Comment on above: Stress incontinence (Primary Dx); Dysfunctional voiding of urine Start: 03-29-2024 End: 03-29-2024 ambulatory [facility] Facility:[facility] Start: 03-27-2024 ambulatory Nuria garrett APRN.CNP Work Phone: Pulmonary Medicine Start: 03-26-2024 End: 03-26-2024 ambulatory CARMENZA NOLEN Facility:[facility] Start: 03-26-2024 End: 03-26-2024 Patient encounter procedure Carmenza Nolen MD Work Phone: Urology Comment on above: Retention of urine ( Primary Dx); Screening for genitourinary condition; Type 2 diabetes mellitus with hyperglycemia, with long-term current use of insulin (HCC); BURKE (stress urinary incontinence, female) Start: 03-16-2024 End: 03-16-2024 ambulatory JYOTHI SHELTON [facility] Start: 03-15-2024 End: 03-15-2024 ambulatory ZACKERY HUGHESAN [facility] Start: 02-26-2024 Telephone encounter Flavio Coon RN Ur ology Start: 02-12-2024 Telephone encounter Vonnie Wilder RN Ur ology Comment on above: Results - Ct Start: 02-01-2024 End: 02-01-2024 ambulatory [facility] Facility:[facility] Start: 02-01-2024 End: 02-01-2024 Subsequent hospital visit by physician Arrival Time Radiology Work Phone: Radiology Pet CT Comment on above: Other hydronephrosis [N13.39] Start: 01-24-2024 End: 01-24-2024 ambulatory SWETA LI [facility] Start: 01-17-2024 End: 01-17-2024 ambulatory AGUSTO OLMSTEAD Not Available Start: 01-12-2024 End: 01-12-2024 Patient encounter procedure Taurus Ballard MD Work Phone: Urology Comment on above: Other hydronephrosis (Primary Dx); Screening for genitourinary condition Start: 01-12-2024 End: 01-12-2024 ambulatory [facility] Facility:[facility] Start: 12-21-2023 End: 12-21-2023 ambulatory AGUSTO AICHHOLZ Not Available Start: 12-13-2023 End: 12-13-2023 ambulatory SWETA LI [facility] Start: 11-16-2023 End: 11-16-2023 ambulatory AGUSTO AICHHOLZ Not Available Start: 11-06-2023 Refill Asia Barreto RN [facility] Comment on above: 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; Complex regional pain syndrome type 1 of right upper extremity Start: 11-02-2023 ambulatory PA-C HEIDY ARNOLD F acility: [place] Start: 10-25-2023 End: 10-26-2023 ambulatory PA-C HEIDY ARNOLD Facility:[facility] Start: 10-25-2023 End: 10-25-2023 Patient encounter procedure HEIDY ARNOLD [facility] [place] Start: 10-14-2023 End: 10-14-2023 [facility] Start: 10-13-2023 End: 10-13-2023 ambulatory [facility] Start: 10-11-2023 End: 10-11-2023 ambulatory AGUSTO AICHHOLZ Not Available Start: 10-11-2023 Patient encounter procedure Agusto Aysha SORTER/ASSAY TECH Work Phone: [facility] Start: 10-10-2023 Ref[facility] Comment on above: 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; Complex regional pain syndrome type 1 of right upper extremity Start: 09-29-2023 End: 09-29-2023 ambulatory [facility] Start: 09-29-2023 End: 09-29-2023 ambulatory Drew Esqueda Research Coordinator [facility] Provider Adult Comment on above: CHRISTOPHER IRB# [phone] Start: 09-28-2023 E-mail encounter fro m caregiver Drew Roldankimberly Esqueda Research Coordinator [facility] Start: 09-27-2023 Telephone encounter Drew Sole Bert tayla Research Coordinator [facility] Provider Adult Comment on above: Research F/U Start: 09-26-2023 Telephone encounter Drew Sole Bert tayla Research Coordinator [facility] Provider Adult Comment on above: Research F/U Start: 09-12-2023 End: 09-13-2023 ambulatory PA-C HEIDY ARNOLD Facility:[facility] [place] [place] Start: 09-12-2023 End: 09-12-2023 Patient encounter procedure HEIDY ARNOLD [facility] Start: 09-07-2023 Refill Yesenia Burnett RN [facility] Comment on above: 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 Start: 09-05-2023 End: 09-05-2023 ambulatory Tondra Juliaus Other [employer] Other Start: 09-05-2023 Telephone encounter Tona Mapus [facility] Start: 08-09-2023 End: 08-09-2023 ambulatory [facility] Start: 08-09-2023 End: 08-09-2023 ambulatory [facility] Start: 08-01-2023 End: 08-01-2023 Patient encounter procedure [facility] Nephrology Michael Work Phone: Start: 07-18-2023 End: 07-19-2023 ambulatory PA-C HEIDY ARNOLD Facility:[facility] [place] Start: 07-05-2023 End: 07-05-2023 Orders Only Taurus Ballard MD Work Phone: Urology Comment on above: Kidney cyst, acquire d (Primary Dx) Start: 07-05-2023 Telephone encounter Eli Sprague [facility] Nephrology Start: 06-28-2023 End: 06-29-2023 ambulatory Lisa Porras Facility:[facility] Start: 06-28-2023 End: 06-28-2023 Patient encounter procedure Lisa PulidoIrina Vern [facility] Start: 06-26-2023 End: 06-26-2023 ambulatory Tondra Mapus Other [employer] Other Start: 06-26-2023 Telephone encounter Tondra Mapus [facility] Start: 06-23-2023 Telephone encounter Heidy harris RN Urology Comment on above: Surgical Followup Start: 06-22-2023 End: 06-23-2023 ambulatory TAURUS BALLARD Facility:[facility] Start: 06-19-2023 ambulatory Taurus newton MD Work Phone: Urology Comment on above: Aislinn Wheeler upcomin g procedure Start: 06-15-2023 Telephone encounter Vonnie Wilder RN Ur ology Comment on above: Pre-Op Teaching Start: 06-12-2023 End: 06-12-2023 ambulatory Tondra Mapus Other [employer] Other Start: 06-12-2023 Telephone encounter Tondra Mapus [facility] Start: 06-08-2023 End: 06-08-2023 Lab Drop off HEIDY ARNOLD [facility] Start: 06-08-2023 End: 06-08-2023 Patient encounter procedure AGUSTO OLMSTEAD [facility] Start: 06-08-2023 (PUMP/CGM) Pump / Sensor Tondra Mapus [facility] Start: 06-08-2023 End: 06-09-2023 ambulatory [facility] [employer] Other Start: 05-22-2023 End: 05-23-2023 ambulatory Lisa M. Lue Facility:[facility] Start: 05-22-2023 End: 05-22-2023 Patient encounter procedure Lisa Porras [facility] Start: 05-18-2023 End: 05-18-2023 ambulatory Sara Augustine Other [facility] Other Start: 05-18-2023 FQ visit new patient Sara Augustine [facility] Start: 05-18-2023 Telephone encounter Taurus rees MD Work Phone: Urology Comment on above: Follow Up Start: 05-17-2023 End: 05-17-2023 ambulatory TAURUS BALLARD Facility:[facility] Start: 05-11-2023 End: 2023 ambulatory PA-C HEIDY ARNOLD Facility:[facility] Start: 05-11-2023 End: 05-11-2023 Lab Drop off HEIDY ARNOLD [facility] Start: 05-03-2023 End: 05-04-2023 ambulatory Lisa M. Lue Facility:[facility] Start: 04-18-2023 End: 04-19-2023 ambulatory PA-C HEIDY ARNOLD Facility:[facility] Start: 04-18-2023 End: 04-19-2023 ambulatory Lisa M. Lue Facility:[facility] Start: 04-18-2023 End: 04-18-2023 Lab Drop off HEIDY ARNOLD [facility] Start: 04-18-2023 End: 04-18-2023 Patient encounter procedure Lisa Porras [facility] Start: 04-04-2023 End: 04-04-2023 ambulatory Brigette Wesley Other [employer] Other Start: 04-04-2023 Telephone encounter Brigette Wesley [facility] Start: 02-22-2023 End: 02-23-2023 ambulatory Lisa Porras Facility: [place] Start: 02-22-2023 End: 02-22-2023 Patient encounter procedure Lisa Porras [facility] Start: 01-09-2023 End: 01-09-2023 ambulatory Azyanet Mendenhalls Other [employer] Other Start: 01-09-2023 Telephone encounter Eli Mendenhalls [facility] Start: 01-03-2023 End: 01-04-2023 ambulatory PRICE CHANGER AGUSTO AICHHOLZ Facility:[facility] Start: 12-28-2022 End: 12-29-2022 ambulatory PRICE CHANGER AGUSTO AICHHOLZ Facility:[facility] Start: 12-27-2022 End: 12-27-2022 ambulatory Aziz Bakhous Other [employer] Other Start: 12-27-2022 Office outpatient ne w 30 minutes Aziz Bakhous [facility] Start: 12-15-2022 End: 12-16-2022 ambulatory PRICE CHANGER AGUSTO AICHHOLZ Facility:[facility] Start: 12-14-2022 End: 12-15-2022 ambulatory RAMON HUNTLEY Facility:[facility] Start: 10-27-2022 End: 10-28-2022 ambulatory PRICE CHANGER AGUSTO AICHHOLZ Facility:[facility] Start: 10-24-2022 End: 10-25-2022 ambulatory PRICE CHANGER AGUSTO AICHHOLZ Facility:[facility] Start: 10-12-2022 End: 10-13-2022 ambulatory PRICE CHANGER AGUSTO AICHHOLZ Facility:[facility] Start: 10-05-2022 End: 10-06-2022 ambulatory PRICE CHANGER AGUSTO AICHHOLZ Facility:[facility] Start: 09-29-2022 End: 09-30-2022 ambulatory PRICE CHANGER AGUSTO AICHHOLZ Facility:[facility] Start: 09-21-2022 End: 09-22-2022 ambulatory PETER D HIGHLANDER Facility:[facility] Start: 09-21-2022 End: 09-21-2022 Patient encounter procedure Lisa Porras [facility] Start: 09-15-2022 End: 09-16-2022 ambulatory PRICE CHANGER AGUSTO AICHHOLZ Facility:[facility] Start: 09-13-2022 End: 09-13-2022 Patient encounter procedure HEIDY ARNOLD [facility] Start: 09-08-2022 End: 09-09-2022 ambulatory PRICE CHANGER AGUSTO AICHHOLZ Facility:[facility] Start: 09-02-2022 End: 09-03-2022 ambulatory PETER D HIGHLANDER Facility:[facility] Start: 08-26-2022 End: 08-27-2022 ambulatory PETER D HIGHLANDER Facility:[facility] Start: 08-09-2022 End: 08-10-2022 ambulatory PETER D HIGHLANDER Facility:[facility] Start: 08-05-2022 End: 08-06-2022 ambulatory PETER D HIGHLANDER Facility:[facility] Start: 08-04-2022 End: 08-05-2022 ambulatory PETER D HIGHLANDER Facility:[facility] Start: 08-03-2022 End: 08-04-2022 ambulatory PRICE CHANGER AGUSTO AICHHOLZ Facility:[facility] Start: 08-02-2022 End: 08-03-2022 ambulatory PRICE CHANGER AGUSTO AICHHOLZ Facility:[facility] Start: 08-01-2022 End: 08-02-2022 ambulatory PRICE CHANGER AGUSTO AICHHOLZ Facility:[facility] Start: 07-19-2022 End: 07-20-2022 ambulatory PRICE CHANGER AGUSTO AICHHOLZ Facility:[facility] Start: 07-08-2022 End: 07-09-2022 ambulatory PRICE CHANGER AGUSTO AICHHOLZ Facility:[facility] Start: 07-06-2022 End: 07-07-2022 ambulatory PRICE CHANGER AGUSTO AICHHOLZ Facility:[facility] Start: 07-05-2022 End: 07-06-2022 ambulatory [facility] Facility:[facility] Start: 06-28-2022 End: 06-29-2022 ambulatory [facility] Facility:[facility] Start: 06-24-2022 End: 06-25-2022 ambulatory [facility] Facility:[facility] Start: 06-11-2022 End: 06-16-2022 Evaluation and management of inpatient DR NENO VIEIRA . Facility:[facility] Start: 06-02-2022 End: 06-02-[address] NELL PALMA Facility:[facility] Start: 06-02-2022 End: 06-03-2022 ambulatory [facility] Facility:[facility] Start: 2022 End: 2022 ambulatory RAQUEL SABA . Facility:[facility] Start: 01-27-2021 End: 01-27-2021 Telephone encounter Barb Silva MD Work Phone: Nephrology Comment on above: Appointment Procedures Date Procedure Procedure Detail Performing Clinician Start: 08-08-2024 MLR HEMOGLOBIN A1C Agusto Aysha SORTER/ASSAY TECH Work Phone: Start: 05-01-2024 Urnls dip stick/tabl et rgnt auto w/o microscopy Bulk Order Provider Start: 04-26-2024 BLOOD CULTURE 1 Generic External Data Provider Start: 04-26-2024 BLOOD CULTURE 2 Generic External Data Provider Start: 04-25-2024 Bacteria identified in Urine by Culture Generic External Data Provider Start: 04-17-2024 Mammography Agusto Leticia hills SORTER/ASSAY TECH Work Phone: Start: 03-26-2024 Urnls dip stick/tabl et rgnt auto w/o microscopy Carmenza Nolen MD Work Phone: Start: 02-01-2024 Ct abdomen & pelvis w/o contrst 1/> body re Taurus Ballard MD Work Phone: Start: 02-01-2024 CREATININE BLD Taurus uribe MD Work Phone: Start: 01-12-2024 Urnls dip stick/tabl et rgnt auto w/o microscopy Taurus Ballard MD Work Phone: Start: 10-11-2023 End: 06-24-2024 H/O: hysterectomy History of hysterectomy Agusto Olmstead SORTER/ASSAY TECH Work Phone: Start: 06-22-2023 Laparoscopic partial nephrectomy of left kidney HEIDY ARNOLD Start: 05-22-2023 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 Ricardo Rocha Start: 06-13-2022 Detachment at Left Foot, Partial 1st Ray, Open Approach KIARA OLMSTEAD Start: 06-13-2022 Microscopic examinat ion of blood, culture PRICE CHANGER AGUSTO AYSHA Comment on above: Performed By: #### B LDCX1 ####[facility] [id number] [place], [place] [address]Dr. Ricardo Rocha Start: 06-11-2022 Detachment at Left [...] 04-28-2026 Screening for malignant neoplasm of colon [facility] Start: 07-03-2025 Adult BMI Screening Adult BMI Screening [facility] Start: 07-03-2025 Tobacco Screening Tobacco Screening [facility] Start: 04-24-2025 Adult BMI Screening Adult BMI Screening [facility] Start: 04-24-2025 Tobacco Screening Tobacco Screening [facility] Start: 04-17-2025 Screening for malignant neoplasm of breast [facility] Start: 01-31-2025 Creatinine measurement Serum Creatinine [facility] Start: 01-10-2025 Pneumococcal Vaccine: 65+ Years (1 of 2 - PCV) Pneumococcal Vaccine: 65+ Years (1 of 2 - PCV) [facility] Comment on above: Postponed from 1964 (Patient Refus ed) Start: 10-23-2024 Urine screening for protein Diabetes: Urine Protein Screening [facility] Start: 10-13-2024 Tobacco Screening Tobacco Screening [facility] Start: 10-11-2024 Medicare Annual Wellness (AWV) Medicare Annual Wellness (AWV) [facility] Start: 10-09-2024 End: 10-09-2024 Patient encounter procedure 10/09/2024 11:15 AM EST Office Visit [facility] [address] [place] [phone] Sweta Li, PROMISE [address] [place] [address] [facility] Start: 09-29-2024 Tobacco Screening Tobacco Screening [facility] Start: 09-03-2024 Complete blood count Hemoglobin/Hematocrit [facility] Start: 09-03-2024 Creatinine measurement Serum Creatinine [facility] Start: 08-27-2024 End: 08-27-2024 Patient encounter procedure 08/27/2024 11:30 AM EST Office [facility] [address] [place] [address] Agusto Olmstead, SORTER/ASSAY TECH [address] [place] [phone] [facility] Start: 08-09-2024 Adult BMI Screening Adult BMI Screening [facility] Start: 08-09-2024 Tobacco Screening Tobacco Screening [facility] Start: 06-26-2024 End: 06-26-2024 Patient encounter procedure 06/26/2024 12:30 PM EST Office Visit [facility] [address] [place] [phone] Sweta Li, PROMISE [address] [place], [place] [phone] [facility] Start: 06-24-2024 End: 06-24-2024 Patient encounter procedure 06/24/2024 11:00 AM EST Office Visit [facility] [address] [place] [address] Agusto Olmstead, LUIS [address] [place] [address] [facility] Start: 06-23-2024 Hemoglobin/Hematocrit Hemoglobin/Hematocrit [facility] Start: 06-23-2024 Serum Creatinine Serum Creatinine [facility] Start: 06-11-2024 End: 06-11-2025 Basic metabolic 1998 panel - Serum or Plasma Basic metabolic panel Lab Routine Type 2 diabetes mellitus with hyperglycemia, with long-term current use of insulin ([facility]) Expected: 06/11/2024 (Approximate), Expires: 06/11/2025 [facility] Work Phone: Comment on above: Expected: 06/11/2024 (Approximate), Expi res: 06/11/2025 Start: 06-11-2024 End: 06-11-2025 Hemoglobin A1c/Hemoglobin.total in Blood Hemoglobin A1c Lab Routine Type 2 diabetes mellitus with hyperglycemia, with long-term current use of insulin ([facility]/HCC) Expected: 06/11/2024 (Approximate), Expires: 06/11/2025 [facility] Comment on above: Expected: 06/11/2024 (Approximate), Expi res: 06/11/2025 Start: 06-11-2024 End: 06-11-2024 Patient encounter procedure 06/11/2024 11:30 AM EDT Office Visit [facility] [address] [place] [address] Agusto Olmstead NP [address] [place] [phone] Type 2 diabetes mellitus with diabetic chronic kidney disease (CMS/HCC); Chronic kidney disease, stage 3b (HCC) (CMS/HCC); Hyperparathyroidism, unspecified (CMS/HCC); Malignant neoplasm of cervix uteri, unspecified (CMS/HCC); Rheumatoid arthritis, unspecified (CMS/HCC) [facility] Comment on above: Type 2 diabetes mellitus with diabetic c hronic kidney disease (CMS/HCC); Chronic kidney disease, stage 3b (HCC) (CMS/HCC); Hyperparathyroidism, unspecified (CMS/HCC); Malignant neoplasm of cervix uteri, unspecified (CMS/HCC); Rheumatoid arthritis, unspecified (CMS/HCC) Start: 06-06-2024 Hemoglobin/Hematocrit Hemoglobin/Hematocrit [facility] Start: 06-06-2024 Serum Creatinine Serum Creatinine [facility] Start: 06-04-2024 Hemoglobin A1c measurement Diabetes: Hemoglobin A1C [facility] Start: 05-28-2024 End: 05-28-2024 Patient encounter procedure 05/28/2024 1:20 PM EDT Office Visit [facility] [address] [place] [address] Agusto Olmstead NP [address] [place] [phone] [facility] Start: 05-10-2024 End: 05-10-2024 ambulatory 05/10/2024 11:30 AM EDT [facility] Urology [address] [address] Juanito Barnard MD [address] [place] [address] add on per staff message Urology Comment on above: add on per staff message Start: 05-01-2024 End: 07-31-2024 Basic metabolic 2000 panel - Serum or Plasma BASIC METABOLIC PANEL Lab Routine Stage 3b chronic kidney disease (HCC) Expected: 05/01/2024, Expires: 07/31/2024 [facility] Work Phone: Comment on above: Expected: 05/01/2024, Expires: Start: 05-01-2024 End: 07-31-2024 CYSTATIN C CYSTATIN C Lab Routine Stage 3b chronic kidney disease (HCC) Expected: 05/01/2024, Expires: 07/31/2024 [facility] Comment on above: Expected: 05/01/2024, Expires: Start: 05-01-2024 End: 05-01-2024 Patient encounter procedure 05/01/2024 10:00 AM EDT Office Visit Urology [address] [address] Juanito Barnard MD [address] [place] [address] discuss bladder augment per Dr. Nolen Urology Comment on above: discuss bladder augment per Dr. Nolen Start: 04-21-2024 Covid-19 Vaccine () Covid-19 Vaccine () [facility] Start: 04-21-2024 COVID-19 Vaccine () COVID-19 Vaccine ( season) [facility] Start: 04-21-2024 Influenza vaccination [facility] Start: 04-16-2024 End: 04-16-2024 Patient encounter procedure 04/16/2024 2:20 PM EDT Office Visit [facility] [address] [place] [address] Agusto Olmstead NP [address] [place] [address] Type 2 diabetes mellitus with diabetic chronic kidney disease (HCC) (CMS/HCC); Chronic kidney disease, stage 3b (HCC) (CMS/HCC); Hyperparathyroidism, unspecified (CMS/HCC); Rheumatoid arthritis, unspecified (CMS/HCC); Malignant neoplasm of cervix uteri, unspecified (CMS/HCC) [facility] Comment on above: Type 2 diabetes mellitus with diabetic c hronic kidney disease (HCC) (CMS/HCC); Chronic kidney disease, stage 3b (HCC) (CMS/HCC); Hyperparathyroidism, unspecified (CMS/HCC); Rheumatoid arthritis, unspecified (CMS/HCC); Malignant neoplasm of cervix uteri, unspecified (CMS/HCC) Start: 04-16-2024 End: 04-16-2025 XR Chest 2 Views XR chest 2 views Imaging Routine Chronic cough Expected: 04/16/2024 (Approximate), Expires: 04/16/2025 [facility] Work Phone: Comment on above: Expected: 04/16/2024 (Approximate), Expi res: 04/16/2025 Start: 04-09-2024 End: 04-09-2024 Follow-up encounter 04/09/2024 9:30 AM EDT [facility]rology [address] [place], [place] [id number] Carmenza Nolen MD [address] [place] [address] 1 week follow up per dr. nolen Urology Comment on above: 1 week follow up per dr. nolen Start: 04-04-2024 Hepatitis B screening Urine Albumin:Creatinine Ratio [facility] Start: 03-29-2024 End: 03-29-2024 Nursing evaluation of patient and report 03/29/2024 3:00 PM EDT Nurse Visit Urology [address] [address] [employer] [address] [place] [address] [R33.9] Retention of urine Urology Comment on above: [R33.9] Retention of urine Start: 03-26-2024 End: 03-26-2024 Patient encounter procedure 03/26/2024 11:00 AM EDT Office Visit Urology [address] [place] [address] Carmenza Nolen MD [address] [place] [address] Ballard Urology Comment on above: Follow up per Dr. 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 encounter procedure [employer] [facility] [facility] Comment on above: Continuous leakage of Urine Start: 01-22-2024 DIABETES SCREEN DIABETES SCREEN [facility] Start: 01-19-2024 End: 04-19-2024 CREATININE BLD CREATININE BLD Lab Routine Other hydronephrosis Expected: 01/19/2024 (Approximate), Expires: 04/19/2024 [facility] Comment on above: Expected: 01/19/2024 (Approximate), Expi res: 04/19/2024 Start: 01-19-2024 End: 02-10-2025 CT Kidney WO and W contrast IV CT UROGRAM WO/W IVCON Radiology Routine Other hydronephrosis Expected: 01/19/2024 (Approximate), Expires: 02/10/2025 [facility] Work Phone: Comment on above: Expected: 01/19/2024 (Approximate), Expi res: 02/10/2025 Start: 12-29-2023 Screening for malignant neoplasm of breast Mammogram [facility] Start: 11-22-2023 End: 11-22-2023 Patient encounter procedure 11/22/2023 11:15 AM EDT Office Visit [facility] [address] [place] [address] Sweta Li, PAJuan JoseC [address] [place], [place] [phone] [facility] Start: 10-25-2023 End: 10-25-2023 Patient encounter procedure 10/25/2023 12:45 PM EST Office Visit [facility] [address] [place] [phone] Sweta Li, PAJaun JoseC [address] [place], [place] [phone] [facility] Start: 10-13-2023 End: 10-13-2023 Njx anes stellate ganglion crv sympathetic INJECTION BLOCK NERVE STELLATE GANGLION NECK Complex regional pain syndrome type 1 of right upper extremity 10/13/2023 12:44 PM EST [facility] Start: 10-13-2023 End: 10-13-2023 Patient encounter procedure 10/13/2023 9:55 AM EST Appointment [facility] - Radiology [address] [place] [id number] Zackery Pedro MD [address] [place], [place] [id number] [facility] - Radiology Start: 10-05-2023 End: 01-04-2024 Basic metabolic 2000 panel - Serum or Plasma BASIC METABOLIC PNL Lab Routine Kidney cyst, acquired Expected: 10/05/2023 (Approximate), Expires: 01/04/2024 [facility] Work Phone: Comment on above: Expected: 10/05/2023 (Approximate), Expi res: 01/04/2024 Start: 10-05-2023 End: 08-03-2024 US KIDNEY/BLADDER US KIDNEY/BLADDER Radiology Routine Kidney cyst, acquired Expected: 10/05/2023 (Approximate), Expires: 08/03/2024 [facility] Work Phone: Comment on above: Expected: 10/05/2023 (Approximate), Expi res: 08/03/2024 Start: 09-06-2023 Hemoglobin A1c measurement HbA1C [facility] Start: 09-06-2023 Hemoglobin A1c/Hemoglobin.total in Blood HbA1C [facility] Start: 08-21-2023 Advance Directive Discussion Advance Directive Discussion [facility] Start: 08-21-2023 Behavioral Health Screening Behavioral Health Screening [facility] Start: 08-21-2023 Depression Assessment Depression Assessment [facility] Start: 2023 Advance Directive Discussion Advance Directive Discussion [facility] Start: 2023 Bone Density Screening Bone Density Screening [facility] Start: 2023 Fall Risk Screening Fall Risk Screening [facility] Start: 2023 Screening for osteoporosis Bone Density Screening [facility] Start: 04-21-2023 Covid-19 Vaccine ( season) Covid-19 Vaccine ( season) [facility] Start: 04-21-2023 Covid-19 Vaccine ( season) Covid-19 Vaccine ( season) [facility] Start: 04-21-2023 Influenza vaccination [facility] Start: 08-21-2022 Depression Assessment Depression Assessment [facility] Start: 04-21-2021 Influenza vaccination INFLUENZA (Season Ended) [facility] Start: 2018 Hepatitis B Vaccine (1 of 3 - Risk 3-dose series) Hepatitis B Vaccine (1 of 3 - Risk 3-dose series) [facility] Start: 2018 RSV Vaccine (1 - 1-dose 60+ series) RSV Vaccine (1 - 1-dose 60+ series) [facility] Start: 2018 RSV Vaccine (1 - Risk 60-74 years 1-dose series) RSV Vaccine (1 - Risk 60-74 years 1-dose series) [facility] Start: 2008 Administration of varicella zoster vaccine Zoster (Shingles) Vaccine (1 of 2) [facility] Start: 2008 Screening for malignant neoplasm of colon [facility] Start: 2008 SHINGRIX VACCINE (1 of 2) SHINGRIX VACCINE (1 of 2) [facility] Start: 2003 Cologuard (FIT-DNA) Cologuard (FIT-DNA) [facility] Start: 2003 Colonoscopy Colonoscopy [facility] Start: 2003 Colorectal Cancer Screening Colorectal Cancer Screening [facility] Start: [address] Colonography [facility] Start: 2003 Fecal Occult Blood Fecal Occult Blood [facility] Start: 2003 LIPID SCREEN LIPID SCREEN [facility] Start: 2003 Screening for malignant neoplasm of colon [facility] Start: 2003 Sigmoidoscopy Sigmoidoscopy [facility] Start: 1998 Mammography [facility] Start: 1998 Screening for malignant neoplasm of breast Mammogram Screening [facility] Start: 1988 HPV TESTING HPV TESTING [facility] Start: 1979 PAP TESTING PAP TESTING [facility] Start: 1977 DTaP,Tdap and Td Vaccines (1 - Tdap) DTaP,Tdap and Td Vaccines (1 - Tdap) [facility] Start: 1977 Urine microalbumin profile [facility] Start: 1976 Annual PCP Team Chronic Disease Visit Annual PCP Team Chronic Disease Visit [facility] Start: 1976 Anxiety Screening Anxiety Screening [facility] Start: 1976 BP Controlled (<130/80) BP Controlled (<130/80) [facility] Start: 1976 Depression Screening Depression Screening [facility] Start: 1976 Diabetic foot examination Diabetic Foot Exam [facility] Start: 1976 Hepatitis B surface antibody level LDL Cholesterol [facility] Start: 1976 HEPATITIS C SCREENING HEPATITIS C SCREENING [facility] Start: 1976 Hepatitis C screening Hepatitis C Screening [facility] Start: 1976 HIV SCREENING HIV SCREENING [facility] Start: 1976 HIV screening HIV Screening [facility] Start: 1976 Spirometry Spirometry [facility] Start: 1970 Adult depression screening assessment DEPRESSION SCREENING [facility] Start: 1970 COVID-19 VACCINE (1) COVID-19 VACCINE (1) [facility] Start: 1968 3 comp foot exam completed Diabetic Foot Exam [facility] Start: 1968 Diabetic foot examination Diabetic Foot Exam [facility] Start: 1968 Glaucoma screening [facility] Start: 1968 Hepatitis B screening Urine Albumin:Creatinine Ratio [facility] Start: 1968 Hepatitis C antibody, confirmatory test Dilated Retinal Exam [facility] Start: 1964 Pneumococcal Vaccine: 65+ (1 - PCV) Pneumococcal Vaccine: 65+ (1 - PCV) [facility] Start: 1964 Pneumococcal Vaccine: 65+ (1 of 2 - PCV) Pneumococcal Vaccine: 65+ (1 of 2 - PCV) [facility] Start: 1958 Glaucoma screening Diabetic Ophthalmology Exam [facility] Start: 1958 Screening for malignant neoplasm of colon [facility] Start: 1958 Urine screening for protein Urine Microalbumin [facility] FLUROURODYNAMICS WITH EMG FLUROU RODYNAMICS WITH EMG Procedures Routine Retention of urine BURKE (stress urinary incontinence, female) Ordered: 03/26/2024 [facility] Work Phone: Comment on above: Ordered: 03/26/2024 Njx anes stellate ganglion crv sympathetic INJECTION BLOCK NERVE STELLATE GANGLION NECK Complex regional pain syndrome type 1 of right upper extremity [place] [facility] Njx anes stellate ganglion crv sympathetic INJECTION BLOCK NERVE STELLATE GANGLION NECK Complex regional pain syndrome type 1 of right upper extremity [facility] Renal function 2000 panel - Serum or [facility] Immunizations Immunization Date Immunization Notes Care Provider Lukas pacheco 06-23-2022 tuberculin skin test ; purified protein derivative solution, intradermal Agusto Aichholz SORTER/ASSAY TECH Work Phone: [facility] 06-16-2022 tuberculin skin test ; purified protein derivative solution, intradermal Agusto Aichholz SORTER/ASSAY TECH Work Phone: [facility] 04-02-2021 SARS-CoV-2 (COVID-19 ) mRNA-1273 vaccine HEIDY ARNOLD [facility] 03-02-2021 Moderna SARS-CoV-2 Vaccination Agusto Olmstead NP Work Phone: [facility] 12-07-2020 SARS-CoV-2 (COVID-19 ) mRNA-6043 vaccine HEIDY ARNOLD [facility] 06-03-2016 influenza virus vaccine, unspecified formulation HEIDY ARNOLD [facility] 06-03-2016 influenza, seasonal, injectable, preservative free Drew Esqueda Research Coordinator [facility] Payers Date Payer Category Payer Medicare O [employer] MEDICARE [id number] 2023 Medicare (Managed Care) [facility] [id number] 2023 Private Health Insurance [id number] 2023 Self-pay 2022 Medicare [id number] 2022 Medicare [id number] 2006 Medicare MEDICARE MEDICAR E A [id number] 2006-Present [place] Medicare [id number] 2003 Worker's Comp Other Managed Care [facility] [id number] 2003 Unknown [id number] 1959 Medicare [id number] 2.16.840.1.037735.19 1959 Unknown [id number] 1959 Unknown [id number] 1958 Unknown [id number] 2.16.840.1.471326.3.579.2 .593 1958 Unknown [id number] 2.16.840.1.991539.3.579.2 .593 1958 Unknown [id number] 2.16.840.1.440887.3.579.2 .593 1958 Unknown [id number] 2.16.840.1.682388.3.579.2 .593 1958 Unknown [id number] 2.16.840.1.231000.3.579.2 .593 1958 Unknown [id number] 2.16.840.1.476533.3.579.2 .593 1958 Unknown [id number] 2.16.840.1.289104.3.579.2 .593 1958 Unknown [id number] 2.16.840.1.329683.3.579.2 .593 1958 Unknown [id number] 2.16.840.1.399507.3.579.2 .593 1958 Unknown [id number] 2.16.840.1.506245.3.579.2 .593 1958 Unknown [id number] 2.16.840.1.759064.3.579.2 .593 1958 Unknown [id number] 2.16.840.1.004138.3.579.2 .593 1958 Unknown [id number] 2.16.840.1.241915.3.579.2 .593 1958 Unknown [id number] 2.16.840.1.905780.3.579.2 .593 1958 Unknown [id number] 2.16.840.1.477162.3.579.2 .593 1958 Unknown [id number] 2.16.840.1.800713.3.579.2 .593 1958 Unknown [id number] 2.16.840.1.758207.3.579.2 .593 1958 Unknown [id number] 2.16.840.1.257394.3.579.2 .593 1958 Unknown [id number] 2.16.840.1.110613.3.579.2 .593 1958 Unknown [id number] 2.16.840.1.028985.3.579.2 .593 1958 Unknown [id number] 2.16.840.1.600790.3.579.2 .593 1958 Unknown [id number] 2.16.840.1.386246.3.579.2 .593 1958 Unknown [id number] 2.16.840.1.068320.3.579.2 .593 1958 Unknown [id number] 2.16.840.1.168202.3.579.2 .593 1958 Unknown [id number] 2.16.840.1.008985.3.579.2 .593 1958 Unknown [id number] 2.16.840.1.392635.3.579.2 .593 1958 Unknown [id number] 2.16.840.1.180774.3.579.2 .593 1958 Unknown [id number] 2.16.840.1.831539.3.579.2 .593 1958 Unknown [id number] 2.16.840.1.235478.3.579.2 .593 1958 Unknown [id number] 2.16.840.1.527924.3.579.2 .593 1958 Unknown [id number] 2.16.840.1.826588.3.579.2 .593 1958 Unknown [id number] 2.16.840.1.905425.3.579.2 .727 1958 Unknown [id number] 2.16.840.1.536182.3.579.2 .727 1958 Unknown [id number] 2.16.840.1.058639.3.579.2 .727 1958 Unknown [id number] 2.16.840.1.899377.3.579.2 .727 1958 Unknown [id number] 2.16.840.1.338189.3.579.2 .727 1958 Unknown [id number] 2.16.840.1.192353.3.579.2 .727 1958 Unknown [id number] 2.16.840.1.633603.3.579.2 .72 1958 Unknown [id number] 2.16.840.1.967381.3.579.2 .72 1958 Unknown [id number] 2.16.840.1.949766.3.579.2 .72 1958 Unknown [id number] 2.16.840.1.471492.3.579.2 .72 1958 Unknown [id number] 2.16.840.1.893142.3.579.2 .1958 Unknown [id number] 2.16.840.1.185024.3.579.2 .1958 Unknown [id number] 2.16840.1.303341.3.579.2 .1958 Unknown [id number] 2.16.840.1.398433.3.579.2 .72 1958 Unknown [id number] 2.16.840.1.236785.3.579.2 .1958 Unknown [id number] 2.16.840.1.016663.3.579.2 .1286 1958 Unknown [id number] 2.16840.1.139715.3.579.2 .1258 1958 Unknown [id number] 2.16.840.1.131532.3.579.2 .125 1958 Unknown [id number] 2.16.840.1.431101.3.579.2 .1258 1958 Unknown [id number] 2.16.840.1.764257.3.579.2 .1258 1958 Unknown [id number] 2.16.840.1.938604.3.579.2 .125 1958 Unknown [id number] 2.16.840.1.497557.3.579.2 .1259 1958 Unknown [id number] 2.16.840.1.819046.3.579.2 .1285 1958 Unknown [id number] 2.16.840.1.011577.3.579.2 .1285 1958 Unknown [id number] 2.16.840.1.022479.3.579.2 .1285 1958 Unknown [id number] 2.16.840.1.699298.3.579.2 .1285 1958 Unknown [id number] 2.16.840.1.465237.3.579.2 .1285 1958 Unknown [id number] 2.16.840.1.548602.3.579.2 .1285 1958 Unknown [id number] 2.16.840.1.701701.3.579.2 .1285 1958 Unknown [id number] 2.16.840.1.083125.3.579.2 .1285 1958 Unknown [id number] 2.16.840.1.960486.3.579.2 .1285 1958 Unknown [id number] 2.16.840.1.176214.3.579.2 .1285 1958 Unknown [id number] 2.16.840.1.702629.3.579.2 .1285 1958 Unknown [id number] 2.16.840.1.117865.3.579.2 .1285 1958 Unknown [id number] 2.16.840.1.685178.3.579.2 .1285 1958 Unknown [id number] 2.16.840.1.804783.3.579.2 .1285 1958 Unknown [id number] 2.16.840.1.949472.3.579.2 .1286 1958 Unknown [id number] 2.16.840.1.425464.3.579.2 .1286 Medicare [id number] Unknown Health[facility] [id number] Unknown [id number] 2.16.840.1.176287.3.579.2 .531 Social History Date Type Detail Facility Start: 01-17-2021 End: 10-11-2023 Tobacco smoking status NHIS Never smoker [facility] Start: 01-17-2021 End: 10-11-2023 Tobacco use and exposure Never used [facility] Start: 01-17-2021 End: 04-09-2024 Alcohol intake Current drinker of alcohol (finding) [facility] Start: 01-17-2021 History SDOH Alcohol Frequency 1 [facility] Start: 01-17-2021 Alcohol Comment [facility] Start: 1960 Sex Assigned At Not on file [facility] Exposure to SARS-CoV -2 (event) Not sure [facility] Tobacco smoking status Never [facility] Start: 06-06-2023 End: 10-11-2023 Sex Assigned At Female [facility] Start: 06-06-2023 End: 10-11-2023 History of Social function [facility] Start: 06-06-2023 Alcohol Comment rarely--holida y or special occ [facility] Start: 08-09-2023 End: 07-03-2024 Alcohol intake Current non-drinker of alcohol (finding) [facility] Are you now , , , , never or living with a partner? [facility] How hard is it for y ou to pay for the very basics like food, housing, medical care, and heating Not very hard [facility] (I/We) worried wheth er (my/our) food would run out before (I/we) got money to buy more. DK or Refused [facility] Start: 1960 Sex Assigned At Female F [facility] Start: 04-16-2024 End: 06-11-2024 Alcoholic beverage intake [...] Start: 03-26-2015 Sex Female (finding) [facility] Medical Equipment Procedure Code Equipment Code Equipment Origin al Text Equipment Identifier Dates 4 times daily use [id number] Start: 10-16-2023 End: 10-15-2024 Functional Status Date Assessment Result Facility 10-25-2023 Functional Status N/A [facility] 05-22-2023 Functional Status N/A [facility] 05-11-2023 Functional Status [facility] 02-22-2023 Functional Status N/A [facility] 09-21-2022 Functional Status N/A [facility] 09-13-2022 Functional Status N/A [facility] Clinical Notes 01-17-2021 to 07-15-2024 Telephone [...] 08/09/2023 OARRS appropriate documented in this encounter [facility] 07-15-2024 Telephone encounter Note Last Office Visit: 07/03/2024 Next Office Visit: 10/09/2024 Last Urine Drug Screen: Lab Results Component Value Date BENZOSCRN Negative 08/09/2023 OARRS appropriate [facility] 07-03-2024 History of Presen t illness Narrative [facility] [address] [place] [address] Patient: Aislinn Wheeler Sex: female : 1960 Age: 64 y.o. PCP: AGUSTO OLMSTEAD, ASHVIN-PRICE CHANGER 07/03/2024 Aislinn Wheeler is here for a(n) follow up for her [facility] work injury. Patient reports she [...] cart, cold/heat). Treatments tried: Tizanidine, Lyrica, Gabapentin, [place], Elevation, NSAIDs x 2 (Ibuprofen, Aleve), Flexeril, BioFreeze, Immobilization w/min relief, Celebrex & compound cream w/no relief, Rt Stellate Ganglion NB w/mod relief. The treatment provided moderate relief. The effect of pain on patient's ADLS: Moderate Impairment. Past Medical History: Diagnosis Date Arthritis RHEUMATOID Arthritis OSTEOARTHRITIS Asthma At risk for UTI related to indwelling catheter Broken toes 08/2022 Bronchitis Cancer ([facility]) UTERINE Chronic kidney disease 2015 stage 3 per pt 04/05/23 COVID-19 virus infection 09/28/2021 Diabetes mellitus ([facility]) Fibromyalgia GERD (gastroesophageal reflux disease) History of degenerative disc disease Hypertension Joint pain Lupus ([facility]) Mitral valve prolapse Osteoarthritis Pneumonia released from hospital on 11/12/21 RSD (reflex sympathetic dystrophy) Stroke ([facility]) Past Surgical History: Procedure Laterality Date AMPUTATION OF REPLICATED TOES Left 06/2022 ANKLE SURGERY CATARACT EXTRACTION, BILATERAL Bilateral 03/22 and 04/13 CHOLECYSTECTOMY HYSTERECTOMY INJECTION BLOCK NERVE STELLATE GANGLION NECK Right 03/15/2024 Performed by Zackery Pedro MD at [facility] INJECTION BLOCK NERVE STELLATE GANGLION NECK Right 10/13/2023 Performed by Zackery Pedro MD at [place] INJECTION BLOCK NERVE STELLATE GANGLION NECK Right 12/23/2022 Performed by Zackery Pedro MD at [facility] INJECTION BLOCK NERVE STELLATE GANGLION NECK Right 05/06/2022 Performed by Zackery Pedro MD at [facility] INJECTION BLOCK NERVE STELLATE GANGLION NECK Right 10/15/2021 Performed by Zackery Pedro MD at [facility] INJECTION BLOCK STELLATE GANGLION N/A 02/17/2017 Performed by Zackery Pedro MD at [place] INJECTION BLOCK STELLATE GANGLION NECK Right 06/18/2018 Performed by Zackery Pedro MD at [place] [facility] INJECTION BLOCK STELLATE GANGLION NECK N/A 05/15/2017 Performed by Zackery Pedro MD at [place] [facility] INJECTION BLOCK STELLATE GANGLION NECK Right Right 05/22/2020 Performed by Zackery Pedro MD at [place] [facility] INJECTION BLOCK STELLATE GANGLION NECK Right N/A 10/04/2019 Performed by Zackery Pedro MD at [facility] INJECTION BLOCK STELLATE GANGLION NECK Right Right 05/10/2019 Performed by Zackery Pedro MD at [place] [facility] INJECTION BLOCK STELLATE GANGLION NECK Right Right 12/31/2018 Performed by Zackery Pedro MD at [facility] INJECTION BLOCK STELLATE GANGLION NECK Right Right 10/09/2017 Performed by Zackery Pedro MD at [facility] KNEE SURGERY REMOVAL STIMULATOR SPINAL CORD N/A 12/29/2017 Performed by Zackery Pedro MD at [facility] SHOULDER SURGERY Allergies Allergen Reactions Latex Added [...] Resource Strain: Medium Risk (10/11/2023) Received from [facility], [facility] Overall Financial Resource Strain (CARDIA) Difficulty of Paying Living Expenses: Somewhat hard Food Insecurity: No Food Insecurity (07/03/2024) Hunger Screening Food Insecurity - Worry: Never True Food Insecurity - Inability: Never True Transportation Needs: No Transportation Needs (10/11/2023) Received from [facility], [facility] PRAPARE - Transportation Lack of Transportation (Medical): No Lack of Transportation (Non-Medical): No Physical Activity: Inactive (10/11/2023) Received from [facility] Exercise Vital Sign Days of Exercise per Week: 0 days Minutes of Exercise per Session: 0 min Stress: Stress Concern Present (10/11/2023) Received from [facility] [place] of Occupational Health - Occupational Stress Questionnaire Feeling of Stress : Very much Social Connections: Socially Isolated (10/11/2023) Received from [facility] Social Connection and Isolation Panel [NHANES] Frequency of Communication with Friends and Family: More than three times a week Frequency of Social Gatherings with Friends and Family: More than three times a week Attends Shinto Services: Never Active Member of Clubs or Organizations: No Attends Club or Organization Meetings: Never Marital Status: Interpersonal Safety: Unknown (10/12/2023) Received from [facility] Safety & Environment Fear of Current or Ex-Partner: Not on file Emotionally Abused: Not on file Physically Abused: Not on file Sexually Abused: Not on file Physically or Sexually Abused: Not on file Housing Instability: Low Risk (10/11/2023) Received from [facility] Housing Stability Vital Sign Unable to Pay [...] use Continue Lyrica 150 mg TID and Pulaski 7.5/325 mg TID PRN Proceed with Dr. [...] medication that requires intensive monitoring for toxicity Pulaski. Pul[place]i pill count completed at today's office visit. Dose: 7.5-325 x3 Daily Quantity Dispensed 90 Quantity Remaining 70 Fill date on prescription bottle 06/24/24 appropriate Patient educated to bring medication to every office visit. [place] and Lyrica was refilled at today's office visit. OARRS and most recent UDS were reviewed, discussed and appropriate for medications prescribed. The spine model was demonstrated and CT was reviewed and used to explain the condition. Chronic conditions not treated during this visit that affected my overall medical decision making: Diabetes OARRS: Reviewed. Scribe Statement: Scribed for and in the presence of SEWTA LI PA-C by Agusto Gray CNA. Provider Statement: ISWETA PA-C, personally performed the services described in the documentation, as scribed by Agusto Gray CNA in my presence, and it is both accurate and complete. Agusto Gray CNA 07/03/24 1235 Sweta Li PA-C 07/03/24 1245 documented in this encounter [facility] 06-26-2024 Telephone encounter Note Called and spoke to Aislinn Pulido Liam regarding her message. Asked her which surgery [...] locally Cystatin C and CMP sent to [facility] ( ; fx [phone]) and asked her to go to lab [...] she wants to proceed with surgery Thanks [facility] Work Phone: 06-26-2024 Miscellaneous Notes Called and [...] locally Cystatin C and CMP sent to [facility] ( ; fx [phone]) and asked her to go to lab [...] with surgery Thanks documented in this encounter [facility] 06-11-2024 Miscellaneous Notes Last Office Visit: 04/24/2024 Next Office Visit: 06/26/2024 Last Urine Drug Screen: Lab Results Component Value Date BENZOSCRN Negative 08/09/2023 OARRS appropriate documented in this encounter [facility] 06-11-2024 Telephone encounter Note Last Office Visit: 04/24/2024 Next Office Visit: 06/26/2024 Last Urine Drug Screen: Lab Results Component Value Date BENZOSCRN Negative 08/09/2023 OARRS appropriate [facility] 06-11-2024 History of Presen t illness Narrative Associated Problem(s): Skin lesion of face Suspect to be AK Pt request referral to derm Associated Problem(s): Malignant neoplasm of cervix uteri, unspecified (CMS/HCC) Had hyst Associated Problem(s): Rheumatoid arthritis, unspecified (CMS/HCC) Does not follow with Rheumatology Associated Problem(s): Type 2 diabetes mellitus with hyperglycemia, with long-term current use of insulin ([facility] Will recheck A1c level Continue current insulin at this time Hx of non compliance with fu appts w specialist Associated Problem(s): Chronic kidney disease, stage 3b (HCC) ([facility]) Has to get labs for nephrology and fu appt with them Discussed with pt the importance of adequte blood pressure and blood sugar control to help slow the progression of CKD Associated Problem(s): Continuous leakage of urine Continue with urology Associated Problem(s): Primary hypertension ([facility]) Has not been taking both amlodipine and metoprolol We will start over with amlodipine at 10mg daily Fu in 2 weeks for blood pressure check Recheck in office 188/90 Associated Problem(s): RSD (reflex sympathetic dystrophy) Continue with pain mgmt Associated Problem(s): Type 2 diabetes mellitus with diabetic neuropathy, unspecified whether chcf insulin use ([facility]) Reports increase in neuropathy symptoms, is on [...] is not being taken. She sees a outsole cementer machine.Eye exam is not current. SUBJECTIVE: MEDICATIONS: Current [...] test strip 4 times daily use HYDROcodone-acetaminophen ([place]) 7.5-325 MG tablet 1 tablet, Oral, 3 [...] Diagnosis Date Amputation of left great toe ([facility]) Cervical cancer ([facility]) 10/11/2023 had Hysterectomy Charcot's joint of foot, left 10/11/2023 Chronic kidney disease, stage III (moderate) ([facility]) ([facility]) 10/11/2023 Fatty liver 10/11/2023 History of hysterectomy 10/11/2023 Cervical cancer Hyperkalemia Hyponatremia Leakage of urine from ureter Lupus ([facility]) Memory impairment of gradual onset MOCA: on [...] of nail of digit of hand Osteoporosis ([facility]) 10/11/2023 Post-menopausal 10/11/2023 Rheumatoid arthritis ([facility]) 10/11/2023 RSD (reflex sympathetic dystrophy) 10/11/2023 Type 2 diabetes mellitus with diabetic neuropathy, unspecified whether chcf insulin use ([facility]) 10/11/2023 Visual impairment 10/11/2023 HAD BILATERAL CATARCT [...] diabetes mellitus with diabetic neuropathy, unspecified whether chcf insulin use (CMS/HCC) Reports increase in neuropathy [...] (CMS/HCC) - Primary documented in this encounter [facility] 06-10-2024 Note Received referral ag ain with no C9 approval attached. Spoke with referring provider's office. They will send message to the referral's office to fax C9 approval. I provided my contact information and fax number. [facility] 05-09-2024 Note Reviewed pt's referr al. Pt is being referred for SCS trial consult with [facility], however, it states in the note that [...] refax referral with C9 approval once obtained. Agusto verbalized understanding. Please do not schedule if pt calls back. [facility] 05-01-2024 History of Presen t illness Narrative Images from the original note were not included. [facility] UROLOGY NEW [...] chronic constipation Juanito Barnard MD Associate Staff [facility] Department of Urology I spent a total of 30 minutes on the date of the service which included preparing to see the patient, [id number] patient care, completing clinical documentation, obtaining and/or reviewing separately obtained history, performing a medically appropriate examination, counseling and educating the patient/family/caregiver, and ordering medications, tests, or procedures. >50% of time was devoted to patient counseling. documented in this encounter [facility] 05-01-2024 Note HNO ID: [id number] Author: JUANITO BARNARD MD Service: ? Author Type: Physician Type: Progress Notes Filed: 05/01/2024 12:12 Note Text: [facility] UROLOGY NEW PATIENT CLINIC NOTE SERVICE DATE: [...] Resp: normal e (more content not included)... [facility] 05-01-[facility] Note Patient Outreach (UR OLMN) AISLINN WHEELER ([id number]) 1960 F Date Time Provider Department 05/01/24 [...] for genitourinary condition [Z13.89] Order(s):URINALYSIS, REFLEX MICROSCOPIC [RAD0270] Order #: [id number]. #:[id number] Prescriptions as of 05/06/2024 - metoprolol succinate [...] without hematuria [N39.*08/31/2023 09/04/2023 Encounter Status:Closed by EPIC, PRODUSER on 05/06/24 [facility] 04-16-2024 History of Presen t illness Narrative Associated Problem(s): Rheumatoid arthritis, unspecified (CMS/HCC) Does not follow with Rheumatology Associated Problem(s): Type 2 diabetes mellitus with hyperglycemia, with long-term current use of insulin (CMS/HCC) A1c is improving Associated Problem(s): Type 2 diabetes mellitus with diabetic chronic kidney disease (HCC) (CMS/HCC) A1c is coming down Cont current meds Associated Problem(s): Malignant neoplasm of cervix uteri, unspecified (CMS/HCC) Had hyst Associated Problem(s): Chronic kidney disease, stage 3b (HCC) (CMS/HCC) Will re refer to Nephrology Associated Problem(s): Chronic cough Check xray Consider antihistamine and nasal steroids Will await the results Pt is having surgery on her bladder- they are going to stretch her bladder using part of her intestine and once that is finished they will do the sling on her. Pt has been coughing in the last few months and would like checked out. She states it is a dry cough with no other symptoms. Pt is wondering if second hand smoke could have effect her. Images from the original note were not included. Aislinn Wheeler is a 63 y.o. female presents with chief complaint of No chief complaint on file. HPI: Cough This is a chronic problem. The current episode started more than 1 month ago. The problem has been unchanged. Episode frequency: daily. The cough is Non-productive. Associated symptoms include heartburn (occ). Pertinent negatives include no chest pain, chills, ear congestion, ear pain, eye redness, fever, headaches, hemoptysis, myalgias, nasal congestion, postnasal drip, rash, rhinorrhea (occ), sore throat, shortness of breath, weight loss or wheezing. Nothing aggravates the symptoms. She has tried nothing for the symptoms. There is no history of asthma, bronchiectasis, bronchitis, COPD, emphysema, environmental allergies or pneumonia. SUBJECTIVE: MEDICATIONS: Current Outpatient Medications Medication Instructions amLODIPine (NORVASC) 10 mg, Oral, Daily cyanocobalamin (VITAMIN B-12) 1,000 mcg, Oral, Daily Cyanocobalamin ER 1000 MCG tablet controlled-release 1 tablet, Oral, Daily RT denosumab (PROLIA) 60 mg, Subcutaneous, Every 6 months glucose blood (True Metrix Blood Glucose Test) test strip 4 times daily use HYDROcodone-acetaminophen ([place]) 7.5-325 MG tablet 1 tablet, Oral, 3 [...] REVIEW OF SYMPTOMS: Review of Systems Constitutional: Negative for appetite change, chills, fever and weight loss. HENT: Negative for congestion, ear pain, postnasal drip, rhinorrhea (occ) and sore throat. Eyes: Negative for pain, discharge, redness and visual disturbance. Respiratory: Positive for cough. Negative for hemoptysis, shortness of breath and wheezing. Cardiovascular: Negative for chest pain, palpitations and leg swelling. Gastrointestinal: Positive for heartburn (occ). Negative for abdominal pain, blood in stool, constipation, diarrhea, nausea and vomiting. Genitourinary: Positive for difficulty urinating. Negative for dysuria and frequency. Musculoskeletal: Negative for arthralgias, back pain, joint swelling and myalgias. Skin: Negative for rash and wound. Neurological: Negative for dizziness, tremors, seizures, syncope and headaches. Psychiatric/Behavioral: Negative for behavioral problems, self-injury and suicidal ideas. The patient is not nervous/anxious. Hematological: Does not bruise/bleed easily. Endocrine: Negative for polydipsia, polyphagia and polyuria. Allergic/Immunologic: Negative for environmental allergies and food allergies. PAST MEDICAL HISTORY Past Medical History: Diagnosis Date Amputation of left great toe ([facility]) Cervical cancer ([facility]) 10/11/2023 had Hysterectomy Charcot's joint of foot, left 10/11/2023 Chronic kidney disease, stage III (moderate) ([facility]) ([facility]) 10/11/2023 Fatty liver 10/11/2023 History of hysterectomy 10/11/2023 Cervical cancer Hyperkalemia Hyponatremia Leakage of urine from ureter Lupus ([facility]) Memory impairment of gradual onset MOCA: on [...] of nail of digit of hand Osteoporosis ([facility]) 10/11/2023 Post-menopausal 10/11/2023 Rheumatoid arthritis ([facility]) 10/11/2023 RSD (reflex sympathetic dystrophy) 10/11/2023 Type 2 diabetes mellitus with diabetic neuropathy, unspecified whether terminal block assembler insulin use ([facility]) 10/11/2023 Visual impairment 10/11/2023 HAD BILATERAL CATARCT [...] in her father. OBJECTIVE: Visit Vitals BP 116/80 (BP Location: Left arm, Patient Position: Sitting, BP Cuff Size: Adult long) Pulse 80 Temp 97.8 F (Temporal) Resp 18 Ht 5' Wt 127 lb 6.4 oz SpO2 95% BMI 24.88 kg/m Smoking Status Never BSA 1.56 m Physical Exam Vitals and nursing note reviewed. Constitutional: General: She is not in acute distress. Appearance: Normal appearance. HENT: Head: Normocephalic and atraumatic. Right Ear: External ear normal. Left Ear: External ear normal. Nose: Nose normal. Mouth/Throat: Mouth: Mucous membranes are moist. Eyes: Extraocular Movements: Extraocular movements intact. Conjunctiva/sclera: Conjunctivae normal. Cardiovascular: Rate and Rhythm: Normal rate and regular rhythm. Pulses: Normal pulses. Heart sounds: Normal heart sounds. Pulmonary: Effort: Pulmonary effort is normal. Breath sounds: Normal breath sounds. No stridor. No wheezing, rhonchi or rales. Chest: Chest wall: No tenderness. Abdominal: General: Bowel sounds are normal. There [...] 2 to 3 seconds. Findings: No rash. Neurological: General: No focal deficit present. Mental Status: She is alert and oriented to person, place, and time. Psychiatric: Mood and Affect: Mood normal. Behavior: Behavior normal. Thought Content: Thought content normal. Judgment: Judgment normal. ASSESSMENT AND PLAN: No follow-ups on file. Problem List Items Addressed This Visit Type 2 diabetes mellitus with hyperglycemia, with long-term current use of insulin ([facility]) A1c is improving Stage 3a chronic kidney disease (HCC) ([facility]) Relevant Orders Ambulatory referral to Nephrology Malignant neoplasm of cervix uteri, unspecified ([facility]) Had hyst Rheumatoid arthritis, unspecified ([facility]) Does not follow with Rheumatology Type 2 diabetes mellitus with diabetic chronic kidney disease (HCC) ([facility]) A1c is coming down Cont current meds Chronic kidney disease, stage 3b (HCC) ([facility]) Will re refer to Nephrology Hyperparathyroidism, unspecified ([facility]) Relevant Orders Ambulatory referral to Nephrology Chronic cough - Primary Check xray Consider antihistamine and nasal steroids Will await the results Relevant Orders XR chest 2 views documented in this encounter [facility] 04-15-2024 Note HNO ID: [id number] Author: ?, ?, ? Service: ? Author Type: ? Type: Progress Notes Filed: 04/15/2024 07:29 Note Text: Incidental Lung Nodule Enrollment Outreach attempt: 3rd Attempt Outreach status: Complete Enrolled in Lung Nodule program: No Declined reason: Other Lung Nodule Program Location: [place] Two letter attempts, no response. Discharge letter sent. [facility] 04-15-2024 History of Presen t illness Narrative Incidental Lung Nodule Enrollment Outreach attempt: 3rd Attempt Outreach status: Complete Enrolled in Lung Nodule program: No Declined reason: Other Lung Nodule Program Location: [place] Two letter attempts, no response. Discharge letter sent. documented in this encounter [facility] 04-15-2024 Note Patient Outreach (PU LMMN) LIAMAISLINN PAEZ ([id number]) 1960 F Date Time Provider Department 04/15/24 CHIOMA DURÁN During your visit today, we recorded the following information about you: Chioma Durán 04/15/2024 7:29 AM Signed Incidental Lung Nodule Enrollment Outreach attempt: 3rd Attempt Outreach status: Complete Enrolled in Lung Nodule program: No Declined reason: Other Lung Nodule Program Location: [place] Two letter attempts, no response. Discharge letter [...] Text Encounter Status:Closed by DURÁNCHIOMA on 04/15/24 [facility] 04-09-2024 Note HNO ID: [id number] Author: CARMENZA NOLEN MD Service: ? Author [...] bladder with poor compliance and BURKE at JAIL of 100ml. Bladder remodeling without VUR. Valsalva [...] visit. Either the patient or their legal petroleum products sales representative has been informed of the risks and benefits of -- and alternatives to -- treatment through a remote evaluation and consents to proceed with the evaluation remotely. [facility] 04-09-2024 History of Presen t illness [...] bladder with poor compliance and BURKE at JAIL of 100ml. Bladder remodeling without VUR. Valsalva [...] visit. Either the patient or their legal petroleum products sales representative has been informed of the risks and benefits of -- and alternatives to -- treatment through a remote evaluation and consents to proceed with the evaluation remotely. documented in this encounter [facility] 04-08-2024 Note HNO ID: [id number] Author: ?, ?, ? Service: ? Author Type: ? Type: Progress Notes Filed: 04/08/2024 09:39 Note Text: Incidental Lung Nodule Enrollment Outreach attempt: 2nd Attempt Outreach status: Complete Enrolled in Lung Nodule program: Referred Lung Nodule outreach: Needs outreach Lung Nodule Program Location: [place] Two letter attempts [facility] 04-08-2024 History of Presen t illness Narrative Incidental Lung Nodule Enrollment Outreach attempt: 2nd Attempt Outreach status: Complete Enrolled in Lung Nodule program: Referred Lung Nodule outreach: Needs outreach Lung Nodule Program Location: [place] Two letter attempts documented in this encounter [facility] 04-08-2024 Note Patient Outreach (PU LMMN) AISLINN WHEELER ([id number]) 1960 F Date Time Provider Department 04/08/24 CHIOMA DURÁN During your visit today, we recorded the following information about you: Chioma Durán 04/08/2024 9:39 AM Signed Incidental Lung Nodule Enrollment Outreach attempt: 2nd Attempt Outreach status: Complete Enrolled in Lung Nodule program: Referred Lung Nodule outreach: Needs outreach Lung Nodule Program Location: [place] Two letter attempts Allergies As of Date: 04/08/2024 Noted Allergy Reaction LATEX 02/05/2020 2 - Rash Comments: Added based on information entered during case entry, please review and add reactions, type, and severity as needed Date Reviewed: 03/29/2024 Reviewed by: Lorie Burrows, RN - Fully Assessed Prescriptions as of [...] Encounter Status:Closed by CHIOMA DURÁN on 04/08/24 [facility] 04-02-2024 Note HNO ID: [id number] Author: CARMENZA NOLEN MD Service: ? Author Type: Physician Type: Progress Notes Filed: 04/02/2024 11:52 Note Text: [facility] FOR [...] bladder with poor compliance and BURKE at JAIL of 100ml. Bladder remodeling without VUR. Valsalva voiding with atonic detrusor. Will refer to consider bladder augmentation. Carmenza Nolen MD Voiding cystourethrogram- Voiding Cystourethrogram Patient Name - Aislinn Wheeler Date - April 02, 2024 Imaging exam - VCUG Number of images saved - 11 Patient position - Sitting Radiologic Findings: A laboratory coordinator radiograph was obtained. The bony and soft tissue structures are within normal. 147 ccs contrast were used to fill the bladder. The bladder outline is irregular/trabeculated and abnormal shaped appearing. There is no ureteral reflux. During the voiding phase there is abnormal bladder neck opening and urethra is not visualized. Bladder emptying is not visualized Read by - Carmenza Nolen MD [facility] 03-29-2024 Nurse Note [facility] URODYNAMICS LAB [...] allergy: No Females- Is patient : No Backroom Associate offered:Patient declines B/O UA: Yes, Negative for [...] Pt states an understanding of instructions given. [facility] 03-29-2024 Nurse Note [facility] URODYNAMICS LAB [...] allergy: No Females- Is patient : No Backroom Associate offered:Patient declines B/O UA: Yes, Negative for [...] of instructions given. documented in this encounter [facility] 03-27-2024 Note HNO ID: [id number] Author: NURIA READ APRN.PRICE CHANGER Service: ? Author Type: Nurse Practitioner Type: Progress Notes Filed: 03/27/2024 14:36 Note Text: Incidental Lung Nodule Enrollment Outreach attempt: 1st Attempt Outreach status: Complete Enrolled in Lung Nodule program: Referred Lung Nodule outreach: Needs outreach Lung Nodule Program Location: [facility] 03-27-2024 History of Presen t illness Narrative Incidental Lung Nodule Enrollment Outreach attempt: 1st Attempt Outreach status: Complete Enrolled in Lung Nodule program: Referred Lung Nodule outreach: Needs outreach Lung Nodule Program Location: [facility] documented in this encounter [facility] 03-27-2024 Note Patient Outreach (PM M211) AISLINN WHEELER ([id number]) 1960 F Date Time Provider Department 03/27/24 NURIA READ [id number] During your visit today, we recorded the following information about you: Nuria Read APRN.CNP 03/27/2024 2:36 PM Signed Incidental Lung Nodule Enrollment Outreach attempt: 1st Attempt Outreach status: Complete Enrolled in Lung Nodule program: Referred Lung Nodule outreach: Needs outreach Lung Nodule Program Location: [facility] Big Nodule Allergies As of Date: [...] Encounter Status:Closed by NURIA READ on 03/27/24 [facility] 03-26-2024 Instructions Carmenza Nolen MD - 03/26/2024 11:31 AM EDT Images from the original note were not included. INFORMATION ON URODYNAMICS (BLADDER FUNCTION TEST) Getting Ready for the Test You do not have to fast before the test. Begin to drink 24-32 ounces of fluid (water, cranberry juice, milk, herbal tea) 90 minutes prior to the test so you arrive at the [facility] with the urge to empty [...] your bladder when you arrive at the [facility]. Speak with a nurse if you feel you must empty your bladder. If you are taking antibiotics for a urinary tract infection (UTI) or bladder infection, notify your physician's office immediately. We may reschedule your bladder test. Bring a list of all prescribed and [id number] medications you are taking. If you should need assistance due to a language barrier or medical needs/condition, please notify the veterinary manager when making your appointment and one will be provided for you ([phone]). If you are taking overactive bladder medications [...] test is finished. documented in this encounter [facility] 03-26-2024 Note HNO ID: [id number] Author: CARMENZA NOLEN MD Service: ? Author Type: Physician Type: Progress Notes Filed: 03/26/2024 11:54 Note Text: [facility] [...] her bladder. Had bladder botox injections at [facility] about 3 mo ago with no [...] Assessed 03/26/2024 PHYSICAL EXAM: Patient declined a shrimp packer General: No acute distress, well appearing : [...] and concerns were addressed. Carmenza Nolen MD [facility] 03-26-2024 History of Presen t illness Narrative [facility] [...] her bladder. Had bladder botox injections at [facility] about 3 mo ago with no [...] Assessed 03/26/2024 PHYSICAL EXAM: Patient declined a shrimp packer General: No acute distress, well appearing : [...] Via bladder scan. documented in this encounter [facility] 03-26-2024 Note HNO ID: [id number] Author: MARIA TERESA JOHNSON MA Service: ? Author Type: Electrical Engineering Intern Type: Progress Notes Filed: 03/26/2024 11:54 Note Text: Pt voided upon arrival. PVR = 205 ml Via bladder scan. Pt was doing ISC, but was told she could stop. Pt instructed to give a urine specimen. 2ND Repeat PVR PVR = 135 ml Via bladder scan. [facility] 02-26-2024 Telephone encounter Note Pt LVM asking for her CT scan results. Noted in pt chart was an unread message from regarding the most recent CT scan. LVM for pt and let her know about MyChart message and provided number if pt has any further questions. [facility] 02-26-2024 Miscellaneous Notes Pt LVM asking for her CT scan results. Noted in pt chart was an unread message from regarding the most recent CT scan. LVM for pt and let her know about MyChart message and provided number if pt has any further questions. documented in this encounter [facility] 02-12-2024 Telephone encounter Note Patient LVM requesting results from 02/01/24 CT Urogram. Will update medical team [facility] 02-12-2024 Miscellaneous Notes Patient LVM requesting results from 02/01/24 CT Urogram. Will update medical team documented in this encounter [facility] 02-01-2024 History of Presen t illness Narrative [...] PATIENT PRESENTS WITH AN IMPLANTABLE OR ATTACHED DEPUTY FIRE MARSHAL: No RADIOLOGY DEPARTMENT: CT; Exam(s) Completed: Urogram PERIPHERAL IV DATA: Site assessment: Clean,Dry and Intact, Site disposition Discontinued SIGNED BY: RT Michael(Abel) February 01, 2024 2:50 PM documented in this encounter [facility] 02-01-2024 Note HNO ID: [id number] Author: PRERNA THORPE RT(R) Service: ? Author [...] PATIENT PRESENTS WITH AN IMPLANTABLE OR ATTACHED DEPUTY FIRE MARSHAL: No RADIOLOGY DEPARTMENT: CT; Exam(s) Completed: Urogram PERIPHERAL IV DATA: Site assessment: Clean,Dry and Intact, Site disposition Discontinued SIGNED BY: RT Michael(Abel) February 01, 2024 2:50 PM [facility] 02-01-2024 Note HNO ID: [id number] Author: HEIDY LINDA RN Service: Nursing Author [...] DATE: February 01, 2024 TIME: 2:50 PM [facility] 01-12-2024 Note HNO ID: [id number] Author: SANJANA CALLAWAY MA Service: ? Author Type: Electrical Engineering Intern Type: Progress Notes Filed: 01/12/2024 14:43 Note Text: Post Void Residual done on patient with 211 cc residual volume remaining. notified. Sanjana Callaway MA [facility] 01-12-2024 History of Presen t illness Narrative Post Void Residual done on patient with 211 cc residual volume remaining. notified. Sanjana Callaway MA [facility] FOLLOW-UP PATIENT HISTORY AND [...] urogram Will refer to Dr. Tamanna Ruiz APRN.PRICE CHANGER Attending Note I have personally performed a [...] the presence of Dr. Ballard Electronically signed, Pwoer Blanco I agree with the Chief Complaint, ROS, and Past Histories independently gathered by the clinical business support coordinator and the remaining scribed note accurately describes my personal service to the patient. Dr. Taurus Ballard MD documented in this encounter [facility] 01-12-2024 Note HNO ID: [id number] Author: TAURUS BALLARD MD Service: ? Author Type: Physician Type: Progress Notes Filed: 01/12/2024 14:43 Note Text: [facility] FOLLOW-UP PATIENT HISTORY AND PHYSICAL EXAM PATIENT [...] urogram Will refer to Dr. Tamanna Ruiz APRN.PRICE CHANGER Attending Note I have personally performed a [...] MD Date: 01/12/2024 (more content not included)... [facility] 11-06-2023 Miscellaneous Notes Last Office Visit: 08/09/2024 Next Office Visit: 11/22/2023 Last Urine Drug Screen: Lab Results Component Value Date BENZOSCRN Negative 08/09/2023 OARRS appropriate [facility] this [facility] Telephone encounter Note Last Office Visit: 08/09/2024 Next Office Visit: 11/22/2023 Last Urine Drug Screen: Lab Results Component Value Date BENZOSCRN Negative 08/09/2023 OARRS appropriate [facility] 10-25-2023 Hospital Discharg e instructions Patient Education [...] including vitamins, herbs, eye drops, creams, and masx-fxp-bzpnwjl medicines. Any problems you or family members [...] provider tells you to take them. Taking pygw-jpa-kzahedx medicines, vitamins, herbs, and supplements. General instructions [...] Follow these instructions at home: Medicines Take orua-ice-oamritm and prescription medicines only as told by [...] provider. Document Revised: 02/11/2022 Document Reviewed: 02/11/2022 [employer]UK[employer] Undergarments Patient Education 2022 [employer]. Follow Up Care 09/26/2023 08:43:34 With:HEIDY ARNOLD PA-C, URL Address: [address] [place] [address] When: Unknown [facility] Ashlie 10-10-2023 Miscellaneous Notes Last OV: 08/12/23 Next OV: proc 10/13/23 OARRS appropriate: yes Last UDS: 08/12/23 Pharmacy: Faustino rodriguez documented in this encounter [facility] 10-10-2023 Telephone encounter Note Last OV: 08/12/23 Next OV: proc 10/13/23 OARRS appropriate: yes Last UDS: 08/12/23 Pharmacy: Drug Marcial rodriguez [facility] 09-27-2023 Miscellaneous Notes Summary: [facility] IRB# [id number] IRB# [id number]: Vascular events in patients undergoing same-day nonCardiac surgery - [facility] PI: Mary Rojas MD, LETY, BARNEY. Outcomes Research Department. Anesthesia Rocky. [facility]. Aislinn Wheeler was unavailable at the listed phone number. We will attempt to contact the patient through Lotame message. Drew Esqueda Research Coordinator Research Coordinator documented in this encounter [facility] 09-26-2023 Miscellaneous Notes Summary: [facility] IRB# [id number] IRB# [id number]: Vascular events in patients undergoing same-day nonCardiac surgery - [facility] PI: Mary Rojas MD, LETY, BARNEY. Outcomes Research Department. Anesthesia Rocky. [facility]. Aislinn Wheeler was unavailable at the listed phone number. We will attempt to contact the patient again at a later date. Drew Esqueda Research Coordinator Research Coordinator documented in this encounter [facility] 09-07-2023 Miscellaneous Notes Last OV: 08/09/2023 Next OV: --- OARRS appropriate: yes Last UDS: 08/09/2023 Pharmacy: Drug [facility] Michael Patient left phone message requesting refill on Pulaski and Lyrica. Lyrica prescription signed 08/11/2023 has 1 refill. Per OARRS patient last filled Lyrica 08/11/2023. Pulaski prescription pended for review and signature. Patient's fill dated adjusted from 09/14/23 to 09/17/23 due to recent 3 day hospitalization. documented in this encounter [facility] 09-07-2023 Telephone encounter Note Last OV: 08/09/2023 Next OV: --- OARRS appropriate: yes Last UDS: 08/09/2023 Pharmacy: Faustino Rodriguez Patient left phone message requesting refill on Pulaski and Lyrica. Lyrica prescription signed 08/11/2023 has 1 refill. Per OARRS patient last filled Lyrica 08/11/2023. Pulaski prescription pended for review and signature. [facility] 09-07-2023 Telephone encounter Note Patient's fill dated adjusted from 09/14/23 to 09/17/23 due to recent 3 day hospitalization. [facility] 09-03-2023 Note HNO ID: [id number] Author: KRYSTA SULLIVAN MD Service: Hospital Medicine [...] -- 08/31/23 1115 activity - mobilize patient ([place]) VTE Prophylaxis: VTE prophylaxis appropriate SIGNATURE: Krysta Sullivan MD PATIENT NAME: Aislinn Wheeler DATE: September 03, 2023 TIME: 6:31 PM [facility] 09-02-2023 Note HNO ID: [id number] Author: KRYSTA SULLIVAN MD Service: Hospital Medicine [...] -- 08/31/23 1115 activity - mobilize patient (nc,oh) VTE Prophylaxis: VTE prophylaxis appropriate SIGNATURE: Krysta Sullivan MD PATIENT NAME: Aislinn Wheeler DATE: September 02, 2023 TIME: 2:31 PM [facility] 09-02-2023 Note HNO ID: [id number] Author: NOTE, INTERFACE, ? Service: ? Author Type: ? Type: Progress Notes Filed: 09/02/2023 02:20 Note Text: Epic Scheduled Downtime: 09/02/2023 1:00:00 AM to 09/02/2023 2:04:22 AM [facility] 09-01-2023 Note HNO ID: [id number] Author: MIKE LOUIS RN Service: Care Management Author Type: Registered Nurse Type: Care Mgt Progress Note Filed: 09/01/2023 15:30 Note Text: CARE MANAGEMENT WEEKEND PLANNING NOTE NO WEEKEND DISCHARGE Disposition: TBD Anticipated Discharge Date: No weekend DC anticipated Weekend Senior Product Development Scientist Pager #: Girish Rogers [phone] ANATOLIY UTI - repeat UA sent - bc pending Waiting on podiatry consult SIGNATURE: Mike Louis RN PATIENT NAME: Aislinn Wheeler DATE: September 01, 2023 TIME: 3:28 PM PAGER/CONTACT #: [phone] [facility] 09-01-2023 Note HNO ID: [id number] Author: ANTHONY BARROW MD Service: Hospital Medicine [...] -- 08/31/23 1115 activity - mobilize patient (nc,[place]) VTE Prophylaxis: VTE prophylaxis appropriate SIGNATURE: Anthony Barrow MD PATIENT NAME: Aislinn Wheeler DATE: September 01, 2023 TIME: 11:36 AM [facility] 08-31-2023 History of Past i [...] of this encounter (statuses as of 09/27/2023) [facility]01-11-2024 History of Past illness Narrative* Problem Noted Date Diagnosed Date Resolved Date Fever 08/31/2023 09/04/2023 Urinary tract infection without hematuria 08/31/2023 09/04/2023 Acute cystitis without hematuria 01/18/2021 01/21/2021 Pyelonephritis 01/17/2021 01/21/2021 Sepsis 01/17/2021 01/21/2021 Hyponatremia 01/17/2021 01/21/2021 Hyperkalemia 01/17/2021 09/04/2023 NAATOLIY (acute kidney injury) 01/17/2021 Hydronephrosis due to obstruction of ureter 01/17/2021 01/21/2021 documented as of this encounter (statuses as of 09/28/2023) [facility]01-11-2024 History of Past illness Narrative* [...] of this encounter (statuses as of 09/28/2023) [facility]01-11-2024 NoteHNO ID: [id number] Author: TIN QUIÑONEZ LSW Service: Care Management Author Type: House Piping Inspector Type: Care Mgt Initial Assessment Filed: 08/31/2023 [...] Determined Advance Directives Current Advance Directive: None Artillery Maintenance Supervisor Attempted to Assist with AD Completion: Yes Action: Education Provided Current Living Arrangements and Support Lives with: Family members, Children Type of Residence: Private Residence (House) Support: Family members How do you manage to accomplish the following: Independent: Ambulation;Bathe/Shower;Dress;Meals/Meal Prep;Going to the bathroom;Medication Management;Transportation to appointments/community Current Services/Equipment Current Post-Acute Service(s): None Discharge Planning Patient Goal(s): General wellness [place] Explained: [place] Given: No Reason Not Given: [...] at bedside. Pt lives in [facility] with her grandchildren (18, 17, and [...] 31, 2023 TIME: 1:42 PM CONTACT #: [id number] Evaluation note* Encounter Date Diagnosis Assessment Notes Treatment Notes Treatment Clinical Notes Jun, Vitamin B12 deficiency (ICD-10 - E53.8) [employer] Other [id number] NoteHNO ID: [id number] Author: Lakisha Kaye Service: ? Author Type: ? Type: Plan of Care Filed: 06/26/2023 9:53 AM Note Text: PHARMACY BEDSIDE DELIVERY SERVICE Patient Name: Aislinn Wheeler The marked outpatient medications were Filled at: [facility] and delivered to the patient's bedside to [facility] Medication List START taking these medications [...] your Primary Care Provider. Lakisha Kaye PAGER: [phone] June 26, 2023 9:52 [facility]11-03-2023 Miscellaneous Notes* Telephone Encounter - Heidy Garcia RN - 06/23/2023 9:03 AM EDT Patient had left robotic partial nephrectomy by Dr. Ballard on 06/22/2023 Will call for surgical follow up once discharged [facility] NoteHNO ID: [id number] Author: Taurus Ballard MD Service: Urology Author Type: Physician Type: Progress Notes Filed: 06/23/2023 1:37 PM Note Text: [facility] UROLOGY PROGRESS NOTE Name: Aislinn Wheeler Bed: [id number] Date: June 23, 2023 After Hours [facility] Service Pager: [phone] ASSESSMENT AND PLAN Aislinn Wheeler is a [...] Jeet De La Fuente MD Urology Resident [facility] Rocky Pager [phone] SUBJECTIVE -c/o pain, had a BM, no [...] kg/m?. Input and Output Date 06/22/23699 - 06/23/2365806/23/23 07 - 06/24/23 0659 Shift 5732-3434 6422-9276 0040-6934 24 Hour Total 9221-4576 1519-2954 0642-7237 24 Hour Total INTAKE IV 1600 1600 Volume (mL) (lactated ringers iv infusion) 1000 1000 Volume (mL) (lactated ringers iv infusion) 600 600 Shift Total 1600 1600 OUTPUT Urine 300 490 822 5274 OR Urine Output 300 300 Output ( Indwelling Urinary Catheter 06/22/23 1130 Chaves 16 Fr) 653 433 1248 Tubes 20 40 60 Drain/Tube Output (Drain/Tube 06/22/23 1333 Lex Vega Right Lower Quadrant Abdomen Drain #1) 20 40 60 # of BMs Number of BMs 1 x 1 x Blood 50 50 Estimated Blood loss 50 50 Shift Total 350 112 529 5724 Weight (kg) 59 59 59 59 59 [...] We will call with pathology. Taurus Ballard MDCutler [facility] HospitalJsapplae14-51-8178 NoteHNO ID: [id number] Author: Linda Nicholson RN Service: Nursing Author Type: Registered Nurse Type: Nursing Progress Note Filed: 06/22/2023 2:15 PM Note Text: surgical dressing: surgical glue, [facility]11-02-2023 NoteHNO ID: [id number] Author: Lola Be APRN.TAPE CUTTING MACHINE OPERATOR Service: ? Author Type: Nurse Outbound Sales Specialist Type: Anesthesia Procedure Notes Filed: 06/22/2023 12:24 PM Note Text: ANESTHESIOLOGY PROCEDURE NOTE Airway General Information Procedure Start Time/Medication Administration: 06/22/2023 11:22 AM Patient location during procedure: OR Patient identity confirmed: arm band, care support team assoc and patient Staffing TAPE CUTTING MACHINE OPERATOR: Lola Be APRN.TAPE CUTTING MACHINE OPERATOR Performed by: QUIRINO Indications and Patient Condition [...] June 22, 2023 TIME: 12:24 PM CSN: [id number] Miscellaneous Notes* Telephone Encounter - Vonnie Wilder RN - 06/15/2023 11:24 AM EDT Attempted to call patient for pre op instructions.mailbox is full and unable to LVM. Will try again. documented in this [facility] Evaluation note* Encounter Date Diagnosis [...] hyperglycemia, or diabetes medication issues. 6. Prescriptions: [employer] g6 transmitters/sensor s sent to DM. 7. [...] (ICD-10 - Z68.25) May, Other see above [employer] Other 10-02-2023 Note [id number]#1.00CD:127[facility] 05-22-2023 NoteCystoscopy with Botox injection ? Voiding [...] if you have a fever over 100 degrees.[facility] Hospital Discharge instructions Patient Education 05/22/2023 [...] Up Care 05/03/2023 10:48:47 With:Lisa Porras Address: [address] [place] [address] [phone] Business (1) [address] [address] [phone] Business (1) When: Unknown Comments:Office to schedule follow up in 1 month with [facility]09-28-2023 Evaluation note* Encounter Date Diagnosis [...] 24.0-24.9, adult (ICD-10 - Z68.24) see above [employer] Other [id number] Miscellaneous Notes* Telephone Encounter - Agusto Faulkner - 05/18/2023 12:57 PM EDT Consult notes sent back to Dr. Lisa Porras , phone [phone]. [address] Ballard office. documented in this encounter[facility]09-[facility]-2023 NoteHNO ID: [id number] Author: Taurus Ballard MD Service: ? Author Type: Physician Type: Progress Notes Filed: 05/17/2023 1:35 PM Note Text: [facility] FOLLOW-UP PATIENT HISTORY AND [...] 1.92 01/19/[address] scan (outside records) [facility] 09/28/21 IMPRESSION: Since the prior [...] threatening or minor complicatio (more content not included)...[facility]9716 Hospital Discharge instructions Patient Education 02/22/2023 09:35:15 [...] provider. Document Revised: 12/16/2021 Document Reviewed: 12/16/2021 [employer]UK[employer] Undergarments Patient Education 2022 [employer]. Follow Up Care 09/13/2022 14:59:43 With:Vern TAVERAS, EMELINA Hernandez, URO Address: When:Within 2 Month(s) Comments:w/ RIVAS [facility] 05-09-2023 Evaluation note* Encounter Date Diagnosis [...] N28.1) Patient follows with urology clinic in [facility] for enlarging left renal cyst. December, [...] her blood pressure persistently more than 150/90. [employer] Other 02-01-2023 Hospital Discharge instructions Patient Education [...] 07/24/2013 Document Revised: 03/27/2019 Document Reviewed: 03/27/2019 TUKZ Undergarments Patient Education 2020 [employer]. Follow Up Care 09/14/2022 14:44:34 With:Vern TAVERAS, EMELINA Hernandez, URO Address: When: Unknown [facility] 01-24-2023 Hospital Discharge instructions Patient Education [...] fried and sweet foods. General instructions Take nvkc-dji-cgczijr and prescription medicines only as told by [...] 06/03/2010 Document Revised: 11/28/2019 Document Reviewed: 08/23/2018 [employer]UKZ Undergarments Patient Education 2020 [employer]. Follow Up Care 08/24/2022 11:21:49 With:CATALINA VIRGEN, HEIDY Rodriguez, URL Address: [address] [facility] [place] [address] When: Unknown [facility] 06-09-2021 Miscellaneous Notes* Telephone Encounter - Barbara Talbot - 01/27/2021 10:30 AM EDT Scheduled 02/15 * Telephone Encounter - Barb Silva MD - 01/27/2021 9:40 AM EDT Please schedule hospital follow up with Guy Overton Deitzer, or Sasha. Virtual ok documented in this encounterSalem [facility] Center06-03-2021 NoteHNO ID: [id number] Author: Griselda Diaz (Organic Waste Management) Service: ? Author Type: ? Type: Plan [...] Generic drug: insulin detemir U-100 Griselda Diaz (Slide Forming Machine Tender) PAGER: paris January 21, 2021 4:27 [facility] HospitalFrmqqswr85-01-3104 NoteHNO ID: [id number] Author: ELIZABETH Kothari Service: Care Management Author Type: House Piping Inspector Type: Care Mgt Progress Note Filed: 01/21/2021 1:39 PM Note Text: CARE MANAGEMENT DISCHARGE NOTE SERVICE DATE: 01/21/2021 SERVICE TIME: 1300 LOS: 4 days Admission Date: 01/17/2021 DISCHARGE ARRANGEMENT (list agency and phone number) Discharge Arrangement: Home;Home Penitentiary Care: Nursing;PT;OT [facility] ASSESSMENT: Maira Davila to transport home [phone] HANDOFF COMMUNICATION: Handoff to: Other Caregiver;Primary Care Physician Primary Care Physician Name/Phone: Madeline Jordan PA-C Other Caregiver Name/Phone: [facility] Care TRANSPORTATION ARRANGEMENTS: Transportation Arrangements: Car (Family to transport) ADDITIONAL CONTACT RESOURCES: [facility] not able to accept. [place] of choice provided and sent to first available to accept to her service area. [facility] willing to accept. Pt concerned she does not have [place] part B to cover services. I spoke with grdtabel who plans on paying for services out of pocket until pt's insurance becomes active February 18, 2021 Discharge Information Row Name ED to Hosp-Admission (Current) from 01/17/[address] [facility] Fax# Care to start after your appointment with internal medicine on 01/25/2021 for additional orders. The agency will be contacting you to set this up [facility] HomeWellness Equipment Needed Walker was delivered to hospital room prior to discharge [facility] willing to accept pending pt has her initial appointment with internal medicine on 01/25/2021. Both pt and maira Davila were advised. Dr Hansen also provided script for outpt therapy should home care fall through or cost too high for grlorenzor to cover. Lola to call [facility] to discuss further. Walker was delivered to room and prescription was sent to [facility]. Lola to miner pick. No other homegoing needs. SIGNATURE: ELIZABETH Kothari PATIENT NAME: Aislinn Wheeler DATE: January 21, 2021 TIME: 1:32 PM PAGER/CONTACT #: [phone] [id number] NoteHNO ID: [id number] Author: Derik Daniel Service: Care Management Author Type: Resource Center It Data Architect Type: Care Mgt Progress Note Filed: 01/21/2021 11:24 AM Note Text: CARE MANAGEMENT PROGRESS NOTE SERVICE DATE: 01/21/2021 SERVICE TIME: 950 LOS: 4 days IMM Follow Up Copy Given: Yes Copy given to:: Patient Method: In Person SIGNATURE: Derik Daniel PATIENT NAME: Aislinn Wheeler DATE: January 21, 2021 TIME: 11:23 AM PAGER/CONTACT #: [phone] [id number] NoteHNO ID: [id number] Author: Ailyn Salas RN Service: Care Management Author Type: Registered Nurse Type: Care Mgt Progress Note Filed: 01/20/2021 3:29 PM Note Text: CARE MANAGEMENT PROGRESS NOTE SERVICE DATE: 01/20/2021 SERVICE TIME: 3:09 PM LOS: 3 days [place] of Choice Given: Yes Level of Care Discussed: Home Care Financial Disclosure Provided: No Financial Disclosure Comments: [facility] does not service area Provider [...] sent. Patient does not have a PCP. [facility] can provide a visiting provider to [...] 20, 2021 TIME: 3:09 PM PAGER/CONTACT #: [phone] [id number] NoteHNO ID: [id number] Author: Inna Hansen DO Service: Hospital Medicine Author Type: Physician Type: Progress Notes Filed: 01/20/2021 12:37 PM Note Text: DEPARTMENT OF HOSPITAL MEDICINE PROGRESS NOTE SERVICE DATE: 01/20/2021 SERVICE TIME: 10:37 AM Hospital Medicine/Primary Attending: Inna Hansen DO NIGHT AND WEEKEND COVERAGE: DELMY COVERAGE: Days: [phone], please contact via [employer] Nights: [phone], please page CC Hospitalist Night coverage pager [phone] Subjective INTERVAL HPI: nausea and vomiting this [...] Non-Pharmacologic VTE Prophylaxis/Anticoagulants 01/17/212214 pneumatic compression stockings ([place], [place]) 01/17/212214 activity - mobilize patient ([place]) VTE Prophylaxis: VTE prophylaxis appropriate Disposition: TBD Inna Hansen DO January 20, 2021 10:39 [facility]Doxc[facility]bb[facility]-3969 NoteHNO ID: [id number] Author: Benjamin Bernal MD Service: Urology Author [...] Wendy Bernal MD January 19, 2021 4:12 [facility] HospitalIibtngnj63-78-5502 NoteHNO ID: [id number] Author: Shelby Lucero PharmD Service: Pharmacy Author Type: Pharmacist Type: Plan of Care Filed: 01/19/2021 11:02 AM Note Text: PHARMACY MEDICATION REVIEW Patient Name: Aislinn Wheeler : 1960 The following medications were updated within the ASSEMBLER FINAL medication list: Medications ADDED to ASSEMBLER FINAL medication list ? Albuterol HFA (replaced nebs) ? Levemir (replaced Lantus) Medications CHANGED on ASSEMBLER FINAL medication list ? Lyrica (added instructions) ? Symbicort (added instructions) Medications REMOVED from ASSEMBLER FINAL medication list ? Diltiazem ? Cymbalta ? [...] nothing too big . Call placed to [facility] pharmacy to clarify prescribed dose of insulin, and the only prescription for insulin [facility] has on file is for Relion 70/30 inject 25 units BID. [facility] pharmacist states this was prescribed 02/19/2020 but never picked up. The below information represents the best possible medication history: Yes Medication history completed by: Pharmacist: Shelby Lucero PharmD Source of history: Patient: Reliability of source: Appears reliable, clearly identified: [facility] pharmacy (phone call) Medication nonadherence identified: Unable to assess - it is clear the patient is noncompliant with her medications (admits she has been off her meds, no insulin fills at [facility] despite patient report), but at this time unable to assess reason for nonadherence. Reconciliation completed: Yes All ASSEMBLER FINAL medications addressed by LIP and Medication reconciliation completed by: Shelby Lucero PharmD Medications with dose or frequency intentionally adjusted at admission: ? Pulaski modified to 5/325 mg q6h PRN New medications at admission: ? Ceftriaxone Note patient ordered insulin regimen (Lantus 15 units QHS + sliding scale Humalog) and based on blood glucose readings, this is appropriate Patient interested in Bedside Delivery Services or using OP Pharmacy at discharge? Unable to assess Preferred outpatient pharmacy: [facility] [id number] [place] [address] [address] - [phone] Allergies: Latex Rash Comment:Added based on information [...] as instructed twice daily. Shelby Lucero, PharmD 01/19/2021voLogansport Memorial HospitalEjwqalyh71-55-6756 NoteHNO ID: [id number] Author: Inna Hansen DO Service: Hospital Medicine Author Type: Physician Type: Progress Notes Filed: 01/19/2021 2:24 PM Note Text: DEPARTMENT OF HOSPITAL MEDICINE PROGRESS NOTE SERVICE DATE: 01/19/2021 SERVICE TIME: 9:30 AM Hospital Medicine/Primary Attending: Inna Hansen DO NIGHT AND WEEKEND COVERAGE: DELMY COVERAGE: Days: [phone], please contact via [employer] Nights: [phone], please page CC Hospitalist Night coverage pager [phone] Subjective INTERVAL HPI: no overnight events. Denies [...] Most recent imaging Assessment/Plan Problem List Sepsis ([facility]) POA: Yes Pyelonephritis POA: Yes Hydronephrosis due to obstruction of ureter POA: Yes Acute cystitis without hematuria POA: Unknown Acute bilateral obstructive uropathy POA: Yes Hyponatremia POA: Yes ANATOLIY (acute kidney injury) ([facility]) POA: Yes Hyperkalemia POA: Yes Principal Problem: Sepsis ([facility]) Pyelonephritis Complicated UTI Hydronephrosis due to obstruction [...] Non-Pharmacologic VTE Prophylaxis/Anticoagulants 01/17/212214 pneumatic compression stockings ([place]) 01/17/212214 activity - mobilize patient ([place]) VTE Prophylaxis: VTE prophylaxis appropriate Disposition: Home Discussed with granddaughter Lola by phone with patient's permission. Inna Hansen DO January 19, 2021 9:33 [facility] HospitalWenzlafg62-29-0258 History of Past illness Narrative* Problem Noted Date Resolved Date Acute cystitis without hematuria 01/18/2021 01/21/2021 Pyelonephritis 01/17/2021 01/21/2021 Sepsis 01/17/2021 01/21/2021 Hyponatremia 01/17/2021 01/21/2021 Hyperkalemia 01/17/2021 01/21/2021 Hydronephrosis due to obstruction of ureter 12/2101/21/2021 documented as of this encounter (statuses as of 01/27/2021) [facility] History of Past illness Narrative* Problem Noted Date Diagnosed Date Resolved Date Acute cystitis without hematuria 01/18/2021 01/21/2021 Pyelonephritis 01/17/2021 01/21/2021 Sepsis 01/17/2021 01/21/2021 Hyponatremia 01/17/2021 01/21/2021 Hyperkalemia 01/17/2021 01/21/2021 Hydronephrosis due to obstruction of ureter 01/17/2021 01/21/2021 documented as of this encounter (statuses as of 06/09/2023) [facility] History of Past illness Narrative* Problem Noted Date Diagnosed Date Resolved Date Acute cystitis without hematuria 01/18/2021 01/21/2021 Pyelonephritis 01/17/2021 01/21/2021 Sepsis 01/17/2021 01/21/2021 Hyponatremia 01/17/2021 01/21/2021 Hyperkalemia 01/17/2021 01/21/2021 Hydronephrosis due to obstruction of ureter 01/17/2021 01/21/2021 documented as of this encounter (statuses as of 06/15/2023) [facility] History of Past illness Narrative* Problem Noted Date Diagnosed Date Resolved Date Acute cystitis without hematuria 01/18/2021 01/21/2021 Pyelonephritis 01/17/2021 01/21/2021 Sepsis 01/17/2021 01/21/2021 Hyponatremia 01/17/2021 01/21/2021 Hyperkalemia 01/17/2021 01/21/2021 Hydronephrosis due to obstruction of ureter 01/17/2021 01/21/2021 documented as of this encounter (statuses as of 06/19/2023) [facility] History of Past illness Narrative* Problem Noted Date Diagnosed Date Resolved Date Acute cystitis without hematuria 01/18/2021 01/21/2021 Pyelonephritis 01/17/2021 01/21/2021 Sepsis 01/17/2021 01/21/2021 Hyponatremia 01/17/2021 01/21/2021 Hyperkalemia 01/17/2021 01/21/2021 Hydronephrosis due to obstruction of ureter 01/17/2021 01/21/2021 documented as of this encounter (statuses as of 06/23/2023) [facility] History of Past illness Narrative* Problem Noted Date Diagnosed Date Resolved Date Acute cystitis without hematuria 01/18/2021 01/21/2021 Pyelonephritis 01/17/2021 01/21/2021 Sepsis 01/17/2021 01/21/2021 Hyponatremia 01/17/2021 01/21/2021 Hyperkalemia 01/17/2021 01/21/2021 Hydronephrosis due to obstruction of ureter 01/17/2021 01/21/2021 documented as of this encounter (statuses as of 07/05/2023) [facility]21 NoteHNO ID: [id number] Author: Inna Hansen DO Service: Hospital Medicine Author Type: Physician Type: Progress Notes Filed: 01/18/2021 4:10 PM Note Text: DEPARTMENT OF HOSPITAL MEDICINE PROGRESS NOTE SERVICE DATE: 01/18/2021 SERVICE TIME: 8:57 AM Hospital Medicine/Primary Attending: Inna Hansen DO NIGHT AND WEEKEND COVERAGE: DELMY COVERAGE: Days: [phone], please contact via [employer] Nights: [phone], please page CC Hospitalist Night coverage pager [phone] Subjective INTERVAL HPI: no overnight events. Denies [...] Most recent imaging Assessment/Plan Problem List Sepsis ([facility]) POA: Yes Pyelonephritis POA: Yes Hydronephrosis due to obstruction of ureter POA: Yes Acute cystitis without hematuria POA: Unknown Acute bilateral obstructive uropathy POA: Yes Hyponatremia POA: Yes ANATOLIY (acute kidney injury) ([facility]) POA: Yes Hyperkalemia POA: Yes Principal Problem: Sepsis ([facility]) Pyelonephritis Complicated UTI Hydronephrosis due to obstruction [...] resolved Medication and Non-Pharmacologic VTE Prophylaxis/Anticoagulants 01/17/21 2215 pneumatic compression stockings ([place], [place]) 01/17/21 221 activity - mobilize patient ([place]) VTE Prophylaxis: VTE prophylaxis appropriate Disposition: Home SIGNATURE: Inna Hansen DO PATIENT NAME: Aislinn Wheeler DATE: January 18, 2021 TIME: 8:57 [id number] NoteHNO ID: [id number] Author: Taurus Ballard MD Service: Urology Author [...] cause of her urinary retention. Taurus Ballard, [facility] [id number] NoteHNO ID: [id number] Author: RT Dayanara(R) Service: Radiology Author Type: Order Worker Type: Progress Notes Filed: 01/17/2021 8:04 PM [...] BY: RT Dayanara(R) January 17, 2021 8:03 [id number] NoteHNO ID: [id number] Author: RT Dayanara(Abel) Service: Radiology Author Type: Order Worker Type: Progress Notes Filed: 01/17/2021 5:30 PM [...] Antoinette Dailey RT(R) January 17, 2021 5:30 [facility] [id number] NoteHNO ID: [id number] Author: Guy Rogers RT(R) Service: Radiology Author Type: Order Worker Type: Progress Notes Filed: 01/17/2021 4:23 PM [...] IV DATA: Not applicable SIGNED BY: Lila KNOX (R) January 17, 2021 4:22 [facility] [id number] NoteHNO ID: [id number] Author: Wendy Rainey, AHSAN Service: ? Author Type: Clinical Order Worker Type: Progress Notes Filed: 01/17/2021 4:19 PM [...] BY: AHSAN Dozier January 17, 2021 4:19 [facility] Future Appointments Appointment Date:12/13/2022 03:00:00 PM Scheduled Provider:HEIDY ARNOLD PA-C Location:[facility] Appointment Type:URO Office Visit [facility] evaluation + Plan note Future Appointments Appointment Date:10/26/2022 10:00:00 AM Scheduled Provider:Lisa Porras MD Location:[facility] Appointment Type:URO Office Visit Appointment Date:12/13/2022 03:00:00 PM Scheduled Provider:HEIDY ARNOLD PA-C Location:[facility] Appointment Type:URO Office Visit [facility] evaluation + Plan note Future Appointments Appointment Date:05/03/2023 10:00:00 AM Scheduled Provider:Lisa Porras MD Location:[facility] Appointment Type:URO Office Visit [facility] evaluation + Plan note Future Appointments Appointment Date:05/03/2023 10:00:00 AM Scheduled Provider:Lisa Porras MD Location:[facility] Appointment Type:URO Office Visit Diagnostic Tests Pending * [facility]ments Appointment Date:05/15/2023 12:30:00 PM Scheduled Provider: Location:[facility] Appointment Type:Urology CALL PAT FT Appointment Date:05/22/2023 10:30:00 AM Scheduled Provider: Location:[facility] Appointment Type:Urology FT Diagnostic Tests Pending * [facility] App[facility]ments Appointment Date:06/28/2023 10:45:00 AM Scheduled Provider:Lisa Porras MD Location:[facility]ments Appointment Date:06/28/2023 10:45:00 AM Scheduled Provider:Lisa Porras MD Location:[facility] Appointment Type:URO Office Visit Diagnostic Tests Pending * Urine [facility] App[facility]ments Appointment Date:07/18/2023 11:20:00 AM Scheduled Provider:HEIDY ARNOLD PA-C Location:[facility] Appointment Type:URO Office Visit [facility] evaluation + Plan note Future Appointments Appointment Date:10/10/2023 11:40:00 AM Scheduled Provider:HEIDY ARNOLD PA-C Location:[facility] Appointment Type:URO Office Visit [facility] evaluation noteNo [facility] [employer] Other Evaluvbgru note* Diagnosis Kidney cyst, acquired- Primary Acquired cyst of kidney [facility] Diagnosis Reflex sympathetic dystrophy of right upper extremity [facility] assessment information [facility] Work Phone: Evaluation note* Diagnosis Reflex sympathetic dystrophy of right upper extremity Complex regional pain syndrome type 1 of right upper extremity [facility] this [facility] Diagnosis Reflex sympathetic dystrophy of right upper extremity Complex regional pain syndrome type 1 of right upper extremity [facility]* Diagnosis Other hydronephrosis- Primary Screening for genitourinary condition Screening for other and unspecified genitourinary condition documented [facility] Diagnosis Retention of urine- Primary Retention of urine, unspecified Screening for genitourinary condition Screening for other and unspecified genitourinary condition Type 2 diabetes mellitus with hyperglycemia, with long-term current use of insulin ([facility]) BURKE (stress urinary incontinence, female) Female stress incontinence [facility] Diagnosis Lung nodule- Primary Solitary pulmonary nodule [facility]* Diagnosis Stress incontinence- Primary Female stress incontinence Dysfunctional voiding of urine Unspecified disorder of urethra and urinary tract documented [facility]* Diagnosis Preop examination- Primary Preoperative examination, [...] hyperglycemia, with long-term current use of insulin ([facility]) Neurogenic bladder- Primary Neurogenic bladder, NOS BURKE (stress urinary incontinence, female) Female stress incontinence [facility]* Diagnosis Preop examination- Primary Preoperative examination, [...] (HCC) Other hydronephrosis [facility]* Diagnosis Preop examination- Primary Preoperative examination, [...] Low bladder compliance [facility] Diagnosis Preop examination- Primary Preoperative examination, [...] hyperglycemia, with long-term current use of insulin ([facility]) Screening for genitourinary condition Screening for other and unspecified genitourinary condition [facility] Diagnosis Onset Date Resolution Status Anemia of renal disease acut e B12 deficiency acute CKD stage 3b, GFR 30-44 ml/min acute 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 acute Hyperkalemia acute Hyperparathyroidism acute Hypertensive nephropathy acu te Renal cyst acute [facility] Work Phone: Evaluation note* Diagnosis Encounter for subsequent annual wellness visit (AWV) in Medicare patient- Primary Age related osteoporosis, unspecified pathological fracture presence ([facility]) Stage 3 chronic kidney disease, unspecified whether stage 3a or 3b CKD (HCC) ([facility]) Primary hypertension ([facility]) Unspecified essential hypertension Type 2 diabetes mellitus with hyperglycemia, with long-term current use of insulin ([facility]) Vitamin D deficiency Type 2 diabetes mellitus with diabetic neuropathy, unspecified whether terminal block assembler insulin use ([facility]) Type 2 diabetes mellitus with foot ulcer, with long-term current use of insulin ([facility]) Stage 3a chronic kidney disease (HCC) ([facility]) Neurogenic bladder Neurogenic bladder, NOS Visual impairment Unspecified visual loss Herpes simplex vulvovaginitis- Primary Primary hypertension ([facility])- Primary Unspecified essential hypertension Type 2 diabetes mellitus with hyperglycemia, with long-term current use of insulin ([facility]) Stage 3 chronic kidney disease, unspecified whether stage 3a or 3b CKD (HCC) ([facility]) Stage 3a chronic kidney disease (HCC) ([facility]) Urinary incontinence without sensory awareness Incontinence without sensory awareness Continuous leakage of urine Continuous leakage Primary hypertension ([facility])- Primary Unspecified essential hypertension Acute cystitis without hematuria Type 2 diabetes mellitus with diabetic neuropathy, unspecified whether terminal block assembler insulin use ([facility]) UTI symptoms Stage 3a chronic kidney disease (HCC) ([facility]) Neurogenic bladder Neurogenic bladder, NOS Type 2 diabetes mellitus with hyperglycemia, with long-term current use of insulin ([facility]) Essential (primary) hypertension ([facility]) Unspecified essential hypertension Chronic cough- Primary Cough Type 2 diabetes mellitus with diabetic chronic kidney disease ([facility]) Chronic kidney disease, stage 3b (HCC) ([facility]) Hyperparathyroidism, unspecified ([facility]) Hyperparathyroidism, unspecified Rheumatoid arthritis, unspecified ([facility]) Malignant neoplasm of cervix uteri, unspecified ([facility]) Type 2 diabetes mellitus with hyperglycemia, with long-term current use of insulin ([facility]) Type 2 diabetes mellitus with hyperglycemia, with long-term current use of insulin ([facility])- Primary Type 2 diabetes mellitus with diabetic chronic kidney disease ([facility]) Chronic kidney disease, stage 3b (HCC) ([facility]) Hyperparathyroidism, unspecified ([facility]) Hyperparathyroidism, unspecified Malignant neoplasm of cervix uteri, unspecified ([facility]) Rheumatoid arthritis, unspecified ([facility]) Essential (primary) hypertension ([facility]) Unspecified essential hypertension 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 Iron deficiency anemia, unspecified iron deficiency anemia type Primary hypertension ([facility]) Unspecified essential hypertension Type 2 diabetes mellitus with diabetic neuropathy, unspecified whether terminal block assembler insulin use (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) Skin lesion of face Unspecified disorder of skin and subcutaneous tissue documented in this encounter [facility] HealthcareEvaluation note* Diagnosis Reflex sympathetic dystrophy of right upper extremity Complex regional pain syndrome type 1 of right upper extremity [facility] Diagnosis Complex regional pain syndrome type 1 of right upper extremity- Primary Encounter for long-term opiate analgesic use Encounter for long-term (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 of other medications [facility] Diagnosis Chronic cough- Primary Cough Type 2 diabetes mellitus with diabetic chronic kidney disease (HCC) ([facility]) Chronic kidney disease, stage 3b (HCC) ([facility]) Hyperparathyroidism, unspecified (CMS/HCC) Hyperparathyroidism, unspecified Rheumatoid arthritis, unspecified (CMS/HCC) Malignant neoplasm of cervix uteri, unspecified (CMS/HCC) Type 2 diabetes mellitus with hyperglycemia, with long-term current use of insulin ([facility]) documented in this encounter [facility] HealthcareEvaluation note* Diagnosis Chronic cough- Primary Cough documented in this encounter [facility] HealthcareEvaluation note* Diagnosis Nausea and vomiting, unspecified vomiting type- Primary documented in this encounter [facility] Narrative - Reported* Type Description Date [...] SURGERY Hospitalization History [facility] 2014 Hospitalization History [facility] SEPSIS 05/2022 [employer] Other Hisspqu general Narrative - Reported* Type Description Date [...] SURGERY Hospitalization History [facility] 2014 Hospitalization History [facility] SEPSIS 05/2022 [employer] Other Hospital course Narrative No data available for this section [facility] Hospital Discharge instructions No data available for this section [facility] InstructionsNot on filedocumented in this encounter [facility] filedocumented in this encounter [facility]Not on filedocumented in this encounter [facility]ructionsNot on filedocumented in this encounter [facility] No data available for this section [facility] reason for referral (narrative)* Diagnostic Procedure Only (Routine) - Pending Review Specialty Diagnoses / Procedures Referred By Danny hensley Referred To Contact [facility] Diagnoses Kidney cyst, acquired Procedures US KIDNEY/BLADDER US RETROPERITONEAL REAL TIME W/IMAGE COMPLETE Taurus Ballard MD [address] [place] [address] [facility] [place] [address] Referral ID Status Reason Start Date Expiration Date Visits Requested Visits Authorized [id number] Pending Review Auto-Generat ed Referral 10/05/2023 08/03/2024 1 1 [facility] for referral (narrative)* Outpatient Procedure (Routine) - New Request Specialty Diagnoses / Procedures Referred By Danny hensley Referred To Contact [facility] Diagnoses Retention of urine BURKE (stress urinary incontinence, female) Procedures FLUROURODYNAMICS WITH EMG EMG STDS ANAL/URTL SPHNCTR OTH/THN NDL Carmenza Nolen MD [id number] [place] [address] Referral ID Status Reason Start Date Expiration Date Visits Requested Visits Authorized [id number] New Request Auto-Generat ed Referral 03/26/2024 03/26/2025 1 1 [facility] for referral (narrative)* Consultation (Routine) - Pending Review Specialty Diagnoses / Procedures Referred By Danny hensley Referred To Contact Nephrology Diagnoses Hyperparathyroidism, unspecified ([facility]/HCC) Stage 3a chronic kidney disease (HCC) ([facility]/HCC) Procedures [place] OFFICE/OUTPATIENT NEW HIGH MDM 60 MINUTES Agusto Olmstead NP [address] [place] [address] Tyler Valencia MD [address] [address] Referral ID Status Reason Start Date Expiration Date Visits Requested Visits Authorized [id number] Pending Review Specialty Services Required 04/16/2024 10/13/2024 1 1 Scheduling Instructions Was already seen in practice, needs to re establish [facility] for visit NarrativeReferral Agusto Olmstead, Mark Anthony pt Type 2 IDDM apt with [employer]ACH[employer], SKILLED LABOR-C, BC-ADMN[employer] 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 Advance Directive(s) 01/17/2021 3:49 PM Advance Directive Response Recorded Date/ Time Advance Directives No April 09, 2024 11:42am Reason for Referral Specialty Diagnoses / Procedures Referred By Danny hensley Referred To Contact CT IMAGING Diagnoses Other hydronephrosis Procedures CT UROGRAM WO/W IVCON CT ABD & PELVIS W/WO CONTRST 1+ BODY REGNS Taurus Ballard MD [address] [place] [address] [place] [address] Referral ID Status Reason Start Date Expiration Date Visits Requested Visits Authorized [id number] Pending Review Auto-Generat ed Referral 01/19/2024 02/10/2025 [...] section and content) DATE CREATED AUTHOR 01/23/2021 [facility] DATE CREATED AUTHOR AUTHOR'S ORGANIZ ATION 01/04/2023 [facility] DATE CREATED AUTHOR AUTHOR'S ORGANIZ ATION 10/19/2023 [facility] DATE CREATED AUTHOR AUTHOR'S ORGANIZ ATION 11/03/2023 [facility] DATE CREATED AUTHOR AUTHOR'S ORGANIZ ATION 03/05/2024 [facility] DATE CREATED AUTHOR AUTHOR'S ORGANIZ ATION 04/02/2024 [facility] DATE CREATED AUTHOR AUTHOR'S ORGANIZ ATION 04/29/2024 [place] DATE CREATED AUTHOR AUTHOR'S ORGANIZ ATION 06/13/2024 [facility] DATE CREATED AUTHOR AUTHOR'S ORGANIZ ATION 06/28/2024 [facility] DATE CREATED AUTHOR AUTHOR'S ORGANIZ ATION 07/05/2024 [facility] DATE CREATED AUTHOR AUTHOR'S ORGANIZ ATION 07/08/2024 [facility] Source Comments (unrecognize d section and content) In the event this informatio n is protected by the Federal Confidentiality of Alcohol and Drug Abuse Patient Records regulations: The Federal rules restrict any use of the information to criminally investigate or prosecute any alcohol or drug abuse patient.[facility] the event this information is protected by the Federal Confidentiality of Alcohol and Drug Abuse Patient Records regulations: The Federal rules restrict any use of the information to criminally investigate or prosecute any alcohol or drug abuse patient.[facility] Center[facility] the event this information is protected by the Federal Confidentiality of Alcohol and Drug Abuse Patient Records regulations: The Federal rules restrict any use of the information to criminally investigate or prosecute any alcohol or drug abuse patient.[facility] Center[facility] the event this information is protected by the Federal Confidentiality of Alcohol and Drug Abuse Patient Records regulations: The Federal rules restrict any use of the information to criminally investigate or prosecute any alcohol or drug abuse patient.[facility] Center[facility] the event this information is protected by the Federal Confidentiality of Alcohol and Drug Abuse Patient Records regulations: The Federal rules restrict any use of the information to criminally investigate or prosecute any alcohol or drug abuse patient.[facility] Center[facility] the event this information is protected by the Federal Confidentiality of Alcohol and Drug Abuse Patient Records regulations: The Federal rules restrict any use of the information to criminally investigate or prosecute any alcohol or drug abuse patient.[facility] CenterIn the event this information is protected by the Federal Confidentiality of Alcohol and Drug Abuse Patient Records regulations: The Federal rules restrict any use of the information to criminally investigate or prosecute any alcohol or drug abuse patient.[facility] Center[facility] the event this information is protected by the Federal Confidentiality of Alcohol and Drug Abuse Patient Records regulations: The Federal rules restrict any use of the information to criminally investigate or prosecute any alcohol or drug abuse patient.[facility] Center[facility] the event this information is protected by the Federal Confidentiality of Alcohol and Drug Abuse Patient Records regulations: The Federal rules restrict any use of the information to criminally investigate or prosecute any alcohol or drug abuse patient.[facility] Center[facility] the event this information is protected by the Federal Confidentiality of Alcohol and Drug Abuse Patient Records regulations: The Federal rules restrict any use of the information to criminally investigate or prosecute any alcohol or drug abuse patient.[facility] CenterIn the event this information is protected by the Federal Confidentiality of Alcohol and Drug Abuse Patient Records regulations: The Federal rules restrict any use of the information to criminally investigate or prosecute any alcohol or drug abuse patient.[facility] CenterIn the event this information is protected by the Federal Confidentiality of Alcohol and Drug Abuse Patient Records regulations: The Federal rules restrict any use of the information to criminally investigate or prosecute any alcohol or drug abuse patient.[facility] CenterIn the event this information is protected by the Federal Confidentiality of Alcohol and Drug Abuse Patient Records regulations: The Federal rules restrict any use of the information to criminally investigate or prosecute any alcohol or drug abuse patient.[facility] CenterIn the event this information is protected by the Federal Confidentiality of Alcohol and Drug Abuse Patient Records regulations: The Federal rules restrict any use of the information to criminally investigate or prosecute any alcohol or drug abuse patient.[facility] CenterIn the event this information is protected by the Federal Confidentiality of Alcohol and Drug Abuse Patient Records regulations: The Federal rules restrict any use of the information to criminally investigate or prosecute any alcohol or drug abuse patient.[facility] CenterIn the event this information is protected by the Federal Confidentiality of Alcohol and Drug Abuse Patient Records regulations: The Federal rules restrict any use of the information to criminally investigate or prosecute any alcohol or drug abuse patient.[facility] CenterIn the event this information is protected by the Federal Confidentiality of Alcohol and Drug Abuse Patient Records regulations: The Federal rules restrict any use of the information to criminally investigate or prosecute any alcohol or drug abuse patient.[facility] CenterIn the event this information is protected by the Federal Confidentiality of Alcohol and Drug Abuse Patient Records regulations: The Federal rules restrict any use of the information to criminally investigate or prosecute any alcohol or drug abuse patient.[facility] CenterIn the event this information is protected by the Federal Confidentiality of Alcohol and Drug Abuse Patient Records regulations: The Federal rules restrict any use of the information to criminally investigate or prosecute any alcohol or drug abuse patient.[facility] CenterIn the event this information is protected by the Federal Confidentiality of Alcohol and Drug Abuse Patient Records regulations: The Federal rules restrict any use of the information to criminally investigate or prosecute any alcohol or drug abuse patient.[facility] CenterIn the event this information is protected by the Federal Confidentiality of Alcohol and Drug Abuse Patient Records regulations: The Federal rules restrict any use of the information to criminally investigate or prosecute any alcohol or drug abuse patient.[facility] CenterIn the event this information is protected by the Federal Confidentiality of Alcohol and Drug Abuse Patient Records regulations: The Federal rules restrict any use of the information to criminally investigate or prosecute any alcohol or drug abuse patient.[facility] Reason for Visit (unrecogniz ed [...] c/o UNCONTROLLED leakage - STOP ICS X2 [id number] Reason Comments Radiology CT Specialty Diagnoses / Procedures Referred By Contac t Referred To Contact CT IMAGING Diagnoses Other hydronephrosis Procedures CT UROGRAM WO/W IVCON CT ABD & PELVIS W/WO CONTRST 1+ BODY REGNS Taurus Ballard MD [address] [place] [address] [place] [address] Referral ID Status Reason Start Date Expiration Date V isits Requested Visits Authorized [id number] Closed Auto-Generate d Referral 01/19/2024 02/10/2025 1 1 Reason Comments Consult Reason Onset Date Comments Med Refill 06/11/2024 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 Reason Comments Arm Injury Reason Onset Date Comments Med Refill 07/15/2024 Patient Care team informatio n (unrecognized section and content) Team Status: Active Member Role Status Dates Sumi Lentz APRN SORTER/ASSAY TECH-C Primary Care Provider Active Team Status: Active Member Role Status Dates Sumi Lentz APRN SORTER/ASSAY TECH-C Primary Care Provider Active Start: April 26, 2024 End: April 27, 2024 Rafi Marcelo DO Attending Provider Active Sta rt: April 26, 2024 End: April 27, 2024 Shaikh Leon MD Active Start: 2023 End: April 27, 2024 Team Status: Active Member Role Status Dates Sumi Lentz APRN SORTER/ASSAY TECH-C Primary Care Provider Active Start: May 10, 2024 Rafi Marcelo DO Attending Provider Active Sta rt: May 10, 2024 Team Status: Inactive Member Role Status Dates Sumi Lentz APRN SORTER/ASSAY TECH-C Primary Care Provider Active Start: June 05, 2024 End: June 05, 2024 Eli Sprague MD Attending Provider Active Star t: June 05, 2024 End: June 05, 2024 Catering Assistant Relationship Specialty Start Date End Date JodiAgusto casillas [address] [place] [place] [address] PCP - General 05/17/23 Lisa Porras MD [address] [place] [address] Referring Urology 05/11/23 Catering Assistant Relationship Specialty Start Date End Date JodiAgusto casillas [address] [place] [address] PCP - General 05/17/23 Lisa Porras MD [address] [place] [address] Referring Urology 05/11/23 Catering Assistant Relationship Specialty Start Date End Date RicapurvaAgusto casillas [address] [place] [address] PCP - General 05/17/23 Lisa Porras MD [address] [place] [address] Referring Urology 05/11/23 Catering Assistant Relationship Specialty Start Date End Date Agusto Olmstead [address] [place] [address] PCP - General 05/17/23 Lisa Porras MD [address] [id number] Referring Urology 05/11/23 Catering Assistant Relationship Specialty Start Date End Date Agusto Olmstead, SCOURING MACHINE TENDER-PRICE CHANGER [address] [place] [address] PCP - General Nurse Practitioner 11/10/22 Catering Assistant Relationship Specialty Start Date End Date Agusto Olmstead [address] [place] [address] PCP - General 05/17/23 Lisa Porras MD [address] [place] [address] Referring Urology 05/11/23 Catering Assistant Relationship Specialty Start Date End Date RicapurvamundoAgusto [address] [place] [address] PCP - General 05/17/23 Lisa Porras MD [address] [place] [address] Referring Urology 05/11/23 Team Status: Inactive Member Role Status Dates Eli Sprague MD Attending Provider Active Star t: August 01, 2023 End: August 01, 2023 Catering Assistant Relationship Specialty Start Date End Date RicapurvaanilaAgusto harrisASHVIN[facility] [address] [place] [address] PCP - General Nurse Practitioner 11/10/22 Catering Assistant Relationship Specialty Start Date End Date Agusto Olmstead SCOURING MACHINE TENDER-[facility] [address] [place] [address] PCP - General Nurse Practitioner 11/10/22 Catering Assistant Relationship Specialty Start Date End Date Agusto Olmstead [address] [place] [address] PCP - General 05/17/23 Lisa Porras MD [address] [place] [address] Referring Urology 05/11/23 Agusto Olmstead [address] [place] [address] Referring 01/04/24 Catering Assistant Relationship Specialty Start Date End Date Agusto Olmstead [address] [place] [address] PCP - General 05/17/23 Lisa Porras MD [address] [place] [address] Referring Urology 05/11/23 Agusto Olmstead [address] [place] [address] Referring 01/04/24 Catering Assistant Relationship Specialty Start Date End Date Agusto Olmstead [address] [place] [address] PCP - General 05/17/23 Lisa Porras MD [address] [place] [address] Referring Urology 05/11/23 Agusto Olmstead [address] [place] [address] Referring 01/04/24 Catering Assistant Relationship Specialty Start Date End Date Agusto Olmstead [address] [place] [address] PCP - General 05/17/23 Lisa Porras MD [address] [place] [address] Referring Urology 05/11/23 Agusto Olmstead [address] [place] [address] Referring 01/04/24 Catering Assistant Relationship Specialty Start Date End Date Agusto Olmstead [address] [place] [address] PCP - General 05/17/23 Lisa Porras MD [address] [place] [address] Referring Urology 05/11/23 Agusto Olmstead [address] [place] [address] Referring 01/04/24 Catering Assistant Relationship Specialty Start Date End Date Agusto Olmstead [address] [place] [address] PCP - General 05/17/23 Lisa Porras MD [address] [place] [address] Referring Urology 05/11/[address] [place] [address] Referring 01/04/24 Catering Assistant Relationship Specialty Start Date End Date Agusto Olmstead [address] [place] [address] PCP - General 05/17/23 Lisa Porras MD [address] [place] [address] Referring Urology 05/11/[address] [place] [address] Referring 01/04/24 Catering Assistant Relationship Specialty Start Date End Date Agusto Olmstead [address] [place] [address] PCP - General 05/17/23 Lisa Porras MD [address] [place] [address] Referring Urology 05/11/[address] [place] [address] Referring 01/04/24 Catering Assistant Relationship Specialty Start Date End Date Agusto Olmstead [address] [place] [address] PCP - General 05/17/23 Lisa Porras MD [address] [place] [address] Referring Urology 05/11/23 Agusto Olmstead [address] [place] [address] Referring 01/04/24 Catering Assistant Relationship Specialty Start Date End Date Agusto Olmstead [address] [place] [address] PCP - General 05/17/23 Lisa Porras MD [address] [place] [address] Referring Urology 05/11/23 Agusto Olmstead [address] [place] [address] Referring 01/04/24 Catering Assistant Relationship Specialty Start Date End Date Kofi Gotti MD [address] [place] [address] PCP - General Family Medicine 10/09/23 Catering Assistant Relationship Specialty Start Date End Date Kofi Gotti MD [address] [place] [phone] PCP - General Family Medicine 10/09/23 Catering Assistant Relationship Specialty Start Date End Date Agusto Olmstead SCOURING MACHINE TENDER-PRICE CHANGER PCP - General Nurse Practitioner 11/10/22 Catering Assistant Relationship Specialty Start Date End Date Agusto Olmstead [address] [place] [address] PCP - General 05/17/23 Lisa Porras MD [address] [place] [address] Referring Urology 05/11/23 Agusto Olmstead [address] [place] [address] Referring 01/04/24 Catering Assistant Relationship Specialty Start Date End Date Agusto Olmstead SCOURING MACHINE TENDER-PRICE CHANGER PCP - General Nurse Practitioner 11/10/22 Catering Assistant Relationship Specialty Start Date End Date Kofi Gotti MD [address] [place] [address] PCP - General Family Medicine 10/09/23 Catering Assistant Relationship Specialty Start Date End Date Kofi Gotti MD [address] [place] [address] PCP - General Family Medicine 10/09/23 Catering Assistant Relationship Specialty Start Date End Date Kofi Gotti MD [address] [place] [address] PCP - [facility] Family Medicine 10/09/23 Catering Assistant Relationship Specialty Start Date End Date Kofi Gotti MD [address] [place] [address] PCP - [facility] Medicine 10/09/23 Catering Assistant Relationship Specialty Start Date End Date Kofi Gotti MD [address] [place] [address] PCP - General [facility] Medicine 10/09/23 Catering Assistant Relationship Specialty Start Date End Date Kofi Gotti MD [address] [place] [address] PCP - [facility] Medicine 10/09/23 Catering Assistant Relationship Specialty Start Date End Date Kofi Gotti MD [address] [place] [address] PCP - General Family Medicine 06/20/24 Agusto Olmstead NP [address] [place] [address] Nurse Practitioner Family Medicine 06/11/24 Goals (unrecognized section and content) Goals may [...] BE BASED ON THE PRIMARY CLINICAL RECORDS. [facility] [employer] [facility]. provides no warranty or guarantee of the accuracy or completeness of information in this document.
--- NOTE | 2024-08-10 11:55 | XR_ITS ---
[address] [address] Patient Name: AISLINN CARNES MRN: [id number] date: 1960 Sex: F Assigned Patient Location: ER Current Patient Location: ER Accession/Order Number: [id number] Exam Date: 08/10/2024 12:25 Report Date: 08/10/2024 13:18 At the request of: JULISA LEE Procedure: XR chest 1V EXAM: XR chest 1V INDICATION: chest pain. COMPARISON: Chest x-ray 04/26/2024. TECHNIQUE: Single frontal view of the chest FINDINGS: Normal cardiomediastinal contours. No acute infiltrative process. No pleural effusion or pneumothorax. No acute osseous abnormality. XR/XR chest 1V IMPRESSION: No acute cardiopulmonary process. Electronically authenticated by: BARBARA ROSENBAUM Date: 08/10/2024 13:18
--- NOTE | 2024-08-10 11:55 | ECG_ITS ---
[facility] Test Date: 2024-08-10 Pat Name: AISLINN CARNES Department: Room: - Gender: Female Health Unit Supervisor: : 1960 Requested By: AGUSTO LÓPEZ Order Number: [id number] Reading MD: MACK RAMSAY Measurements Intervals [place] Rate: 77 P: 50 [place]: 166 QRS: 53 QRSD: 74 T: 28 QT: 378 QTc: 410 Interpretive Statements 1100 Sinus rhythm 9110 normal ECG Compared to ECG 05/08/2024 16:55:46 ST (T wave) deviation no longer present Electronically Signed On 08-12-2024 22:37:11 EST by MACK RAMSAY
--- NOTE | 2024-08-10 12:09 | PC.NURSE ---
patient reports she was notified by her pcp to come to ER 3 days ago after getting blood work for ongoing issues with dizziness, chest pain, falling, and fatigue. patient states that she stopped her blood pressure medications on her own due to her blood pressure got too low. patient reports she is unsure if shes been compliant with her diabetes medications as well
[2024-08-10] MEDS: NITROGLYCERIN 0.4 MG BOTTLE SL (12:13)
[2024-08-10 12:17] LABS: Basophils Percent Auto 0.5 % (0.2-2.0); Eosinophils Absolute Auto 0.2 10^3/uL (0.0-0.7); Eosinophils Percent Auto 2.8 % (0.9-7.0); Hematocrit 35.3 % (36.0-48.0); Hemoglobin 11.4 g/dL (12.0-16.0); Immature Granulocytes Abs Auto 0.04 10^3/uL (0.00-0.03); Immature Granulocytes Pct Auto 0.5 % (0.0-0.5); Lymphocytes Absolute Auto 2.5 10^3/uL (1.2-3.8); Lymphocytes Percent Auto 32.9 % (20.5-60.0); Mean Corpuscular HGB Conc 32.3 g/dL (29.9-35.2); Mean Corpuscular Hemoglobin 26.4 pg (26.7-34.0); Mean Corpuscular Volume 81.7 fL (81.0-99.0); Mean Platelet Volume 10.8 fL (9.5-13.5); Monocytes Absolute Auto 0.4 10^3/uL (0.3-0.8); Monocytes Percent Auto 5.2 % (1.7-12.0); Neutrophils Absolute Auto 4.4 10^3/uL (1.4-6.5); Neutrophils Percent Auto 58.1 % (43.0-75.0); Platelet Count 294 10^3/uL (150-450); Red Blood Count 4.32 10^6/uL (4.20-5.40); Red Cell Distribution Width 13.3 % (11.0-15.0); White Blood Count 7.5 10^3/uL (4.0-11.0)
--- NOTE | 2024-08-10 12:23 | ED.GENADUL1 ---
HPI HPI - General Adult General Chief complaint: Recheck/Abnormal Lab/Rx Stated complaint: CHEST PAIN, ABNORMAL LABS PER AGUSTO CARLOS Time Seen by Provider: 08/10/24 11:54 Source: patient Mode of arrival: walk-in History of Present Illness HPI narrative: Patient is coming to the ER for more than 1 complain, she has not been feeling well for the last few days at least and she did stop her blood pressure medication because she mentioned it was running low, patient was evaluated outpatient with the blood workup almost 2 days ago with multiple abnormalities were found including acute kidney injury, the patient does have some chest pain sometimes that comes on exertion Patient does not have any chest pain at the moment sometimes she would have shortness of breath She denies any fever or chills or any abdominal pain or nausea or vomiting but she mentioned that she is just feeling sick and weak and tired Related Data Home Medications ?Medication ?Instructions ?Recorded ?Confirmed insulin lispro 100 unit/mL 1 sliding scale dose subcut QID 05/12/23 08/10/24 subcutaneous pen pregabalin 150 mg capsule 150 mg PO Q8H 05/12/23 08/10/24 hydrocodone 7.5 mg-acetaminophen 1 tab PO Q8H PRN pain 07/07/23 08/10/24 325 mg tablet ferrous sulfate 325 mg (65 mg 325 mg PO DAILY 01/10/24 08/10/24 iron) tablet (FeroSul) B-complex with vitamin C 1 cap PO DAILY 04/26/24 08/10/24 (Support-500 capsule) fluticasone propionate 50 1 spray intranasal DAILY PRN 04/26/24 08/10/24 mcg/actuation nasal allergies spray,suspension (24 Hour Allergy Relief) metoprolol succinate 50 mg 50 mg PO .qd 04/26/24 04/26/24 tablet,extended release 24 hr calcitriol 0.25 mcg capsule 0.25 mcg PO .3XAWEEK 08/10/24 08/10/24 Previous Rx's ?Medication ?Instructions ?Recorded insulin glargine 100 unit/mL (3 28 unit (0.28 mL) subcut QPM #0 mL 01/11/24 mL) subcutaneous pen (Lantus Solostar U-100 Insulin) Allergies Allergy/AdvReac Type Severity Reaction Status Date / Time latex Allergy Unknown Verified 05/16/24 08:42 Opioid HPI Opioid Management Most Recent Opioid Data: Last Pain Scale 7 05/08/24 18:33 05/08/24 Last ORT Total Score 0 04/26/24 03:34 04/26/24 Last ORT Risk Category Low Risk 04/26/24 03:34 04/26/24 Review of Systems ROS Status of ROS 10 or more systems reviewed and unremarkable except as noted in history and below [facility] Medical History (Updated 08/10/24 @ 15:37 by Edwina Walters MD) Pneumonia ?J18.9 - Pneumonia, unspecified organism (ICD-10) Acute UTI (urinary tract infection) ?N39.0 - Urinary tract infection, site not specified (ICD-10) Bilateral hydronephrosis ?N13.30 - Unspecified hydronephrosis (ICD-10) Amputation of left great toe ?S98.112A - Complete traumatic amputation of left great toe, initial encounter (ICD-10) 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 ?N18.9 - Chronic kidney disease, unspecified (ICD-10) ?Z85.528 - Personal history of other malignant neoplasm of kidney (ICD-10) Neuropathy ?G62.9 - Polyneuropathy, unspecified (ICD-10) DM2 (diabetes mellitus, type 2) ?E11.9 - Type 2 diabetes mellitus without complications (ICD-10) Chronic renal insufficiency ?N18.9 - Chronic kidney disease, unspecified (ICD-10) Hyperglycemia due to diabetes mellitus ?E11.65 - Type 2 diabetes mellitus with hyperglycemia (ICD-10) Urinary tract infection ?N39.0 - Urinary tract infection, site not specified (ICD-10) HTN (hypertension) ?I10 - Essential (primary) hypertension (ICD-10) Stroke ?I63.9 - Cerebral infarction, unspecified (ICD-10) Lupus ?M32.9 - Systemic lupus erythematosus, unspecified (ICD-10) Arthritis ?M19.90 - Unspecified osteoarthritis, unspecified site (ICD-10) Fibromyalgia ?M79.7 - Fibromyalgia (ICD-10) Diabetes ?E11.9 - Type 2 diabetes mellitus without complications (ICD-10) Chronic kidney disease (CKD) ?N18.9 - Chronic kidney disease, unspecified (ICD-10) Neoplasm of kidney ?D49.519 - Neoplasm of unspecified behavior of unspecified kidney (ICD-10) Surgical History (Updated 01/10/24 @ 15:56 by Ashley Sanchez) Hx of neck surgery ?Z98.890 - Other specified postprocedural states (ICD-10) History of shoulder surgery ?Z98.890 - Other specified postprocedural states (ICD-10) History of hysterectomy ?Z90.710 - Acquired absence of both cervix and uterus (ICD-10) Family History (Updated 01/10/24 @ 15:58 by Ashley Sanchez) Brother Family history of CHF (congestive heart failure) Family history of myocardial infarction Father Family history of CHF (congestive heart failure) Family history of COPD (chronic obstructive pulmonary disease) Family history of myocardial infarction Sister Family history of cancer Grandmother Family history of cancer Family history of diabetes mellitus Social History (Updated 04/26/24 @ 04:43 by Vonnie Tijerina) Within the past year, how often did you have a drink containing alcohol: never Within the past year, how often did you have six or more drinks on one occasion: never Score interpretation: A score less than 3 is consistent with normal alcohol consumption. Smoking status: Never smoker Non-prescribed substance use: denies use Known occupational exposures/hazards: No Highest level of school completed/degree received: GED or equivalent Do you want help with school or training: No Are you now , , , , never or living with a partner: In a typical week, how many times do you talk on the telephone with family, friends, or neighbors: 3 or more times per week How often do you get together with friends or relatives: 3 or more times per week How often do you attend sabianist or amish services: never Do you belong to any clubs or organizations such as sabianist groups unions, fraternal or athletic groups, or school groups: no Total score: 1 Score interpretation: A score of less than or equal to 1 indicates the most socially isolated. Little interest or pleasure in doing things: not at all Feeling down, depressed, or hopeless: not at all Feel stressed/tense/nervous/anxious/difficulty sleeping: to some extent Life stressors: other Life stressor details: Personal health Gender Identity: female Exam Narrative Exam Narrative: Nurses notes and vital signs reviewed and patient is not hypoxic. General: Looks sick but in no apparent distress. Skin: Warm, dry, no pallor noted. No rash. Head: Normocephalic, atraumatic. Neck: Supple, non-tender. Eye: Pupils are equal, round and EOMI. No scleral icterus. Ears, Nose, Mouth, and Throat: TM are clear, no nasal mucosal hypertrophy. Oral mucosa is moist, no posterior oropharynx erythema, uvula is mid-line Cardiovascular: Regular Rate and Rhythm without murmur, gallop or rub. Respiratory: Rhonchi heard in both lung shankar Back: No midline thoracic or lumbar vertebral tenderness. No CVA tenderness Musculoskeletal: normal ROM, no calf or popliteal tenderness, no lower extremity edema/swelling GI: Abdomen is soft, non-distended. Normal bowel sounds. No masses appreciated. No tenderness to palpation. No rebound, guarding, or rigidity noted. Neurological: A&O x4. No cranial nerve dysfunction observed. No truncal ataxia. Moves all extremities. Sensation intact. Psychiatric: Cooperative and interactive. Normal mood and affect. Constitutional Vital Signs, click to edit/add: Last Vital Signs Temp 97.8 F 08/10/24 11:48 Pulse 71 08/10/24 15:30 Resp 20 08/10/24 15:30 BP 121/65 08/10/24 15:30 Pulse Ox 98 08/10/24 14:40 O2 Del Method Room Air 08/10/24 11:48 Course Vital Signs Vital signs: Vital Signs Temperature 97.8 F 08/10/24 11:48 Pulse Rate 79 08/10/24 11:48 Respiratory Rate 18 08/10/24 11:48 Blood Pressure 230/110 H 08/10/24 11:48 Pulse Oximetry 97 08/10/24 11:48 Oxygen Delivery Method Room Air 08/10/24 11:48 Temperature 97.8 F 08/10/24 11:48 Pulse Rate 71 08/10/24 15:30 Respiratory Rate 20 08/10/24 15:30 Blood Pressure 121/65 08/10/24 15:30 Pulse Oximetry 98 08/10/24 14:40 Oxygen Delivery Method Room Air 08/10/24 11:48 Medical Decision Making MDM Narrative Medical decision making narrative: EKG showing sinus rhythm with a heart rate of [address] elevation but there isT wave inversion lead III that was seen on EKGs Patient potassium is elevated but she does have a history of previous presentation similar to this The patient also had chronic kidney disease with mild elevation It was noted that the patient blood pressure is above 220 systolic she was initially started with nitro to rule out any cardiac event And the nitro was not enough to control her blood pressure she ended up having nicardipine drip The patient have no active chest pain at the moment troponin was negative The patient potassium is 6 but there is no EKG changes that related to elevated to elevated potassium Patient provided in the ER with calcium gluconate in addition to 10 years of irregular insulin with dextrose 50% patient also provided with [facility] After discussing the case with patient was started on hydralazine and interrupted doses instead of nicardipine Patient will be admitted under Dr. Quintero for further evaluation Lab Data Labs: Lab Results 08/10/24 08/10/24 Range/Units 12:05 15:02 WBC 7.5 (4.0-11.0) 10^3/uL RBC 4.32 (4.20-5.40) 10^6/uL Hgb 11.4 L (12.0-16.0) g/dL Hct 35.3 L (36.0-48.0) % MCV 81.7 (81.0-99.0) fL MCH 26.4 L (26.7-34.0) pg MCHC 32.3 (29.9-35.2) g/dL RDW 13.3 (11.0-15.0) % Plt Count 294 (150-450) 10^3/uL MPV 10.8 (9.5-13.5) fL Neut % (Auto) 58.1 (43.0-75.0) % Lymph % (Auto) 32.9 (20.5-60.0) % [place] % (Auto) 5.2 (1.7-12.0) % Eos % (Auto) 2.8 (0.9-7.0) % Baso % (Auto) 0.5 (0.2-2.0) % Neut # (Auto) 4.4 (1.4-6.5) 10^3/uL Lymph # (Auto) 2.5 (1.2-3.8) 10^3/uL [place] # (Auto) 0.4 (0.3-0.8) 10^3/uL Eos # (Auto) 0.2 (0.0-0.7) 10^3/uL Baso # (Auto) 0.0 (0.0-0.1) 10^3/uL Abs Immat Gran (auto) 0.04 H (0.00-0.03) 10^3/uL Imm/Tot Granulo (auto) 0.5 (0.0-0.5) % PT 9.8 (9.0-11.6) sec INR <0.93 Sodium 138 (136-145) mmol/L Potassium 6.0 H (3.5-5.1) mmol/L Chloride 102 (98-107) mmol/L Carbon Dioxide 24.0 (21.0-32.0) mmol/L Anion Gap 18.0 BUN 40.0 H (7.0-18.0) mg/dL Creatinine 2.48 H (0.55-1.02) mg/dL Est GFR ( Amer) 24 L (>=60 mL/min/1.73m^2) Est GFR (Non-Af Amer) 19 L (>=60 mL/min/1.73m^2) BUN/Creatinine Ratio 16.1 Glucose 210 H (74-106) mg/dL Calcium 9.3 (8.5-10.1) mg/dL Magnesium 1.9 (1.8-2.4) mg/dL Total Bilirubin 0.3 (0.2-1.0) mg/dL AST 19 (15-37) U/L ALT 19 (14-59) U/L Alkaline Phosphatase 106 (46-116) U/L Troponin I High Sens 11.2 (4.0-51.3) pg/mL NT-Pro-B Natriuret Pep 746.0 (<=900.0) pg/mL Total Protein 9.0 H (6.4-8.2) g/dL Albumin 3.3 L (3.4-5.0) g/dL Globulin 5.7 g/dL Albumin/Globulin Ratio 0.6 POC Glucose 193 H (74-106) mg/dL Discharge Plan Discharge Chief Complaint: Recheck/Abnormal Lab/Rx Clinical Impression: Hypertensive emergency, Acute on chronic kidney failure, Hyperkalemia Patient Disposition: Admitted As Inpatient Time of Disposition Decision: 15:37
[2024-08-10 12:29] LABS: Prothrombin Time 9.8 sec (9.0-11.6)
[2024-08-10 12:36] LABS: Magnesium 1.9 mg/dL (1.8-2.4); Troponin I High Sensitivity 11.2 pg/mL (4.0-51.3)
[2024-08-10 13:02] LABS: INR <0.93
[2024-08-10 13:31] LABS: Alanine Aminotransferase 19 U/L (14-59); Albumin Globulin Ratio 0.6; Albumin Level 3.3 g/dL (3.4-5.0); Alkaline Phosphatase 106 U/L (46-116); Aspartate Amino Transferase 19 U/L (15-37); BUN Creatinine Ratio 16.1; Bilirubin Total 0.3 mg/dL (0.2-1.0); Calcium 9.3 mg/dL (8.5-10.1); Chloride 102 mmol/L (98-107); Estimated GFR (African America 24 (>=60 mL/min/1.73m^2); Estimated GFR (Non-African Ame 19 (>=60 mL/min/1.73m^2); Globulin 5.7 g/dL; Glucose 210 mg/dL (74-106); Sodium 138 mmol/L (136-145)
[2024-08-10] MEDS: NICARDIPINE IN NACL, ISO-OSM 40 MG/200 ML PIGGYBACK 25 MG IV (14:00)
[2024-08-10] MEDS: SODIUM ZIRCONIUM CYCLOSILICATE 10 GM POWD.PACK PO (14:05)
[2024-08-10] MEDS: DEXTROSE 50 %-WATER 25 GM/50 ML SYRINGE IV ×2 (14:25→16:13)
[2024-08-10] MEDS: CALCIUM GLUCONATE 1,000 MG/10 ML VIAL 1000 MG IVP (14:25)
[2024-08-10] MEDS: INSULIN REGULAR, HUMAN (100 UNIT/ML) 10 ML MDV 10 UNIT IV (14:31)
[2024-08-10] MEDS: HYDRALAZINE HCL 20 MG/ML VIAL 10 MG IVP ×2 (14:40→19:13)
[2024-08-10 15:04] LABS: Glucometer 193 mg/dL (74-106)
[2024-08-10 16:06] LABS: Glucometer 61 mg/dL (74-106)
--- NOTE | 2024-08-10 16:34 | PC.NURSE ---
patient stable at time of hand off to ICU. report given to REY Mayorga
--- OUTSIDE RECORDS SUMMARY | 2024-08-10 16:35 | XMS_ITS | CCD ---
Author Organization [facility] Care Team Providers Care Color Artist Name Role Phone Pcp, No Primary Care Provider Unavailabl e AGUSTO OLMSTEAD Primary Care Physician [phone] Eli Sprague Unavailable AICHMUNDO, BEAD CUTTER AGUSTO Attending Unavailable AICHHOLZ, BEAD CUTTER AGUSTO Consulting Unavailable AICHHOLZ, BEAD CUTTER AGUSTO Admitting Unavailable AICHHOLZ, BEAD CUTTER AGUSTO Primary Care Unavailable RAMON HUNTLEY Attending Unavailable RAMON HUNTLEY Admitting Unavailable REQUEST, DR DANNIE LISTED Primary Care Unavaila georgi DELVALLE, DR THANH García Consulting Unavailable HIGHLRAMON ROSALES Consulting Unavailable AICHHOLZ, BEAD CUTTER AGUSTO Primary Care Unavailable RAMON HUNTLEY Admitting Unavailable RAMON HUNTLEY Attending Unavailable AICHHOLZ, BEAD CUTTER AGUSTO Primary Care Unavailable LUKASWARIN, AMADO H Consulting Unavailable FAWWAD, AMADO H Admitting Unavailable FAWWAD, AMADO H Attending Unavailable AICHHOLZ, BEAD CUTTER AGUSTO Consulting Unavailable AICHHOLZ, BEAD CUTTER AGUSTO Admitting Unavailable AICHHOLZ, BEAD CUTTER AGUSTO Attending Unavailable AICHHOLZ, BEAD CUTTER AGUSTO Primary Care Unavailable RAMON UHNTLEY Attending Unavailable AICHHOLZ, BEAD CUTTER AGUSTO Primary Care Unavailable RAMON HUNTLEY Admitting Unavailable BHARAT, DR NUBIA Carlos Consulting Unavailable RAMON HUNTLEY Consulting Unavailable AICHHOLZ, BEAD CUTTER AGUSTO Primary Care Unavailable BHARAT, DR NUBIA Carlos Consulting Unavailable CAMMIE SEGURA Admitting Unavailable CAMMIE SEGURA Attending Unavailable COLTONCAMMIE Consulting Unavailable AICHHOLZ, BEAD CUTTER AGUSTO Primary Care Unavailable AICHHOLZ, BEAD CUTTER AGUSTO Attending Unavailable AICHHOLZ, BEAD CUTTER AGUSTO Admitting Unavailable BHARAT, DR NUBIA Carlos Consulting Unavailable AICHHOLZ, BEAD CUTTER AGUSTO Consulting Unavailable AICHHOLZ, BEAD CUTTER AGUSTO Primary Care Unavailable COLTON, CAMMIE Admitting Unavailable COLTON, CAMMIE Attending Unavailable COLTON, CAMMIE Consulting Unavailable AICHHOLZ, BEAD CUTTER AGUSTO Primary Care Unavailable AICHHOLZ, BEAD CUTTER AGUSTO Attending Unavailable AICHHOLZ, BEAD CUTTER AGUSTO Consulting Unavailable AICHHOLZ, BEAD CUTTER AGUSTO Admitting Unavailable AICHHOLZ, BEAD CUTTER AGUSTO Primary Care Unavailable WEST, DR NUBIA Carlos Consulting Unavailable COLTON, CAMMIE Admitting Unavailable COLTON, CAMMIE Attending Unavailable COLTON, CAMMIE Consulting Unavailable AICHHOLZ, BEAD CUTTER AGUSTO Primary Care Unavailable ZIEBER, DR THANH García Consulting Unavailable HIGHLANDER, PETER D Attending Unavailable HIGHLANDER, PETER D Admitting Unavailable HIGHLANDER, PETER D Consulting Unavailable AICHHOLZ, BEAD CUTTER AGUSTO Primary Care Unavailable FOSTER ., DR PAGE Admitting Unavailable FOSTER ., DR PAGE Attending Unavailable FOSTER ., DR PAGE Consulting Unavailable ZIEBER, DR THANH García Consulting Unavailable HIGHLANDER, PETER D Admitting Unavailable AICHHOLZ, BEAD CUTTER AGUSTO Primary Care Unavailable ZIEBER, DR THANH García Consulting Unavailable HIGHLANDER, PETER D Attending Unavailable HIGHLANDER, PETER D Consulting Unavailable AICHHOLZ, BEAD CUTTER AGUSTO Primary Care Unavailable AICHHOLZ, BEAD CUTTER AGUSTO Attending Unavailable AICHHOLZ, BEAD CUTTER AGUSTO Consulting Unavailable AICHHOLZ, BEAD CUTTER AGUSTO Admitting Unavailable ZIEBER, DR THANH García Consulting Unavailable AICHHOLZ, BEAD CUTTER AGUSTO Primary Care Unavailable ZIEBER, DR THANH García Consulting Unavailable HIGHLANDER, PETER D Attending Unavailable HIGHLANDER, PETER D Admitting Unavailable HIGHLANDER, RAMON D Consulting Unavailable AICHHOLZ, BEAD CUTTER AGUSTO Primary Care Unavailable ZIEBER, DR THANH García Consulting Unavailable COLTON, CAMMIE Admitting Unavailable COLTON, CAMMIE Attending Unavailable COLTON, CAMMIE Consulting Unavailable RAQUEL DERAS Admitting Unavailable WANDY .RAQUEL Attending Unavailable KASIE CANDELARIO Consulting Unavailable REQUEST, DR PANDEY LISTED Primary Care Unavaila georgi SABA .RAQUEL Consulting Unavailable LYLE MATIAS Consulting Unavailable AICHHOLZ, BEAD CUTTER AGUSTO Primary Care Unavailable HAY ., DR CARMONA Admitting Unavailable HAY ., DR CARMONA Attending Unavailable HAY ., DR CARMONA Consulting Unavailable TONY LUO Consulting Unavailable NUBIA BATEMAN Consulting Unavailable AICHHOLZ, BEAD CUTTER AGUSTO Primary Care Unavailable HIGHLANDER, PETER D Admitting Unavailable HIGHLANDER, PETER D Attending Unavailable HIGHLANDER, RAMON Tillman Admitting Unavailable AICHHOLZ, BEAD CUTTER AGUSTO Primary Care Unavailable HIGHLANDER, RAMON Tillman Attending Unavailable HIGHLANDER, RAMON D Admitting Unavailable AICHHOLZ, BEAD CUTTER AGUSTO Primary Care Unavailable ZIEBER, DR THANH García Consulting Unavailable HIGHLANDER, RAMON Tillman Attending Unavailable HIGHLANDER, RAMON Tillman Consulting Unavailable HIGHLANDER, PETER D Admitting Unavailable AICHHOLZ, BEAD CUTTER AGUSTO Primary Care Unavailable HIGHLANDER, RAMON Tillman Attending Unavailable HIGHLANDER, RAMON Tillman Attending Unavailable HIGHLANDER, PETER D Admitting Unavailable REQUEST, NONE LISTED Primary Care Unavaila ble HIGHLANDER, RAMON D Admitting Unavailable AICHHOLZ, BEAD CUTTER AGUSTO Primary Care Unavailable HIGHLANDER, RAMON Tillman Attending Unavailable HIGHLANDER, RAMON D Admitting Unavailable AICHHOLZ, BEAD CUTTER AGUSTO Primary Care Unavailable HIGHLANDER, RAMON D Attending Unavailable HIGHLANDER, RAMON Tillman Attending Unavailable HIGHLANDER, RAMON D Admitting Unavailable REQUEST, NONE LISTED Primary Care Unavaila ble LOUIE, DR NELL Salazar Attending Unavailabl e ADELIA, DR THANH Garcaí Consulting Unavailable REQUEST, NONE LISTED Primary Care [...] Unavailable SMALLWOOD, REJI FLORES Consulting Unavailable AICHHOLZ, BEAD CUTTER AGUSTO Primary Care Unavailable WEST, DR NUBIA Carlos Consulting Unavailable CAMMIE SEGURA Admitting Unavailable CAMMIE SEGURA Attending Unavailable CAMMIE SEGURA Consulting Unavailable HIGHLANDER, PETER D Admitting Unavailable AICHHOLZ, BEAD CUTTER AGUSTO Primary Care Unavailable ADELIA, DR THANH [...] Unavailable Maria Luisa Olmsteada Primary Care Provider [phone] Aysha Agusto Unavailable TAURUS BALLARD Attending Unavailable MADINAALYTAURUS Attending Unavailable TAURUS BALLARD Attending Unavailable TAURUS BALLARD Admitting Unavailable Aichholkimberly Agusto Primary Care Provider Unavailabl e Aysha Agusto Unavailable SWETA Albarado Referring Unavailable AGUSTO OLMSTEAD Primary Care Unavailable Kofi Gotti MD Primary Care Provider [phone] AGUSTO OLMSTEAD Attending Unavailable RICHAGUSTO CASILLAS Attending Unavailable AICHHOLZ, AGUSTO Attending Unavailable AICHHOLZ, AGUSTO Attending Unavailable AICHHOLZ, AGUSTO Attending Unavailable AICHHOLZ, AGUSTO Attending Unavailable Aichholz ELIESER, Agusto J Primary Care Provider TAURUS BALLARD Referring Unavailable JUANITO BARNARD Attending Unavailable SLOPNICK, CARMENZA Attending Unavailable SLOPNICK, CARMENZA Attending Unavailable VERSWETA ENCINAS Attending Unavailable AICHHOLZ, AGUSTO [...] AICHHOLZ, AGUSTO J Primary Care Unavailable Aichholz ASSISTANT PROFESSOR OF CRIMINAL JUSTICE, Agusto Unavailable Shen TAVERAS, Kofi Primary Care Provider [phone] Allergies Allergy Classification Reported Allergen(s) Allergy Type Date of Onset Reaction(s) Facility Latex (2 sources) Latex Substance Allergy 0 Rash [facility] (20 sources) Latex; Translations: [Latex] Allergy to [...] mouth three times daily as needed HYDROcodone-acetaminophen (Center) 7.5-32 5 MG tablet Take 1 tablet [...] Comment on above: Take 1 tablet by arin th three times daily as needed. albuterol [...] Puffs as in structed twice daily. calcitriol 0.80876 mg oral capsule (4 sources) Vitamin D3 [...] above: Take 1 capsule by mo [facility] two times a day. DULoxetine 20 mg delayed release oral capsule (3 sources) Serotonin and Norepinephrine Reuptake Inhibitor Start: 06-11-2024 End: 07-11-2024 take 1 capsule by mouth once daily DULoxetine (Cymbalta) [address] capsule Indications: Type 2 diabetes mellitus with diabetic neuropathy, unspecified whether snf insulin use ([facility]) Take 1 capsule (20 mg) by mouth Daily Do not crush or chew. 30 capsule 1 06/11/2024 Active estradiol 0.1 mg/ml vaginal cream (7 sources) Estrogen Start: 05-03-2023 Estrace 0.1 mg/g Cream See Instructions, 42.5 gm, Refill(s) 3, apply pea size amount to urethra/inner vagina 3x/week x 1 month, then 2x/week for maintainence, [id number], 153, cm, 05/03/23 9:52:00 EDT, Height/Length [...] day(s), # 30 tab(s), Refills(s) 6, Pharmacy: [id number], 153, cm, 09/21/22 8:48:00 EST, Height/Length [...] day(s), # 30 tab(s), Refills(s) 6, Pharmacy: [email or web address], 153, cm, 09/13/22 13:38:00 EST, Height/Length [...] times daily. Take 1 capsule by mo [facility] two times a day for 30 days. [...] Sig (Normalized) Sig (Original) Continuous Blood Gluc Health Advisor (Dexcom G6 maori liaison adviser) device (3 sources) Start: 12-30-2022 End: 04-16-2024 Continuous Blood Gluc Health Advisor (Dexcom G6 maori liaison adviser) device Inject 1 Device under the skin in the morning. 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; Translations: [[facility] CURRENT USE OF INSULIN] Onset: 08-09-2022 Episodic Other aftercare (1 source) Other snf (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; Translations: [OTH [facility] CURRENT DRUG THERAPY] Onset: 08-09-2022 Episodic Other aftercare (3 sources) Admission statuses; Translations: [[facility] (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 of opiate analgesic] Onset: 03-15-2022 03-15-2022 Episodic Other aftercare (2 sources) [facility] (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 of opiate analgesic; Translations: [[facility] (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 of opiate analgesic] Onset: 03-15-2022 Episodic Other aftercare (4 sources) Patient encounter status; Translations: [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 Pt called and scheduled. Powerset notified. 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 LVM to call office back to schedule. Please advise pt to bring disc with imaging on it to her appt or advise typewriter assembler where imaging had been completed. Thank You Normal [facility] Telephoneon 05-03-2024 Telephone [id number] Fernando Wheeler 1960 F Date Provider Department Center 05/03/2024 808-LIAM, [facility] SURG Second Fl No family history on file Normal [facility] BLOOD CULTURE 1on 05-01-2024 BLOOD CULTURE 1 Blood Culture 1 NG5D NO GROWTH AT 5 DAYS.^NO GROWTH AT 5 DAYS. [facility] BLOOD CULTURE 2on 05-01-2024 BLOOD CULTURE 2 Blood Culture 2 NG5D NO GROWTH AT 5 DAYS.^NO GROWTH AT 5 DAYS. [facility] CNOVon 05-01-2024 CNOV Office Visit (UROLMN ) AISLINN WHEELER ([id number]) 1960 F Date Time Provider Department 05/01/24 10:00 AM JUANITO BARNARD During your visit today, we recorded the following information about you: Pulse Blood pressure 74/minute 173/96 Juanito Barnard MD 05/01/2024 12:12 PM Signed [facility] UROLOGY NEW PATIENT [...] calculate BMI (more content not included)... Normal [facility] No Panel Informationon 05-01 [facility] URINALYSIS, REFLEX MICROSCOP ICon 05-01-2024 Bilirubin Ql (U) Negative Negative [facility] Clarity (Unsp spec) Clear Clear [facility] Color (U) Yellow Yellow [facility] Glucose Test strip (U) [Mass/Vol] 1+ Abnormal Negative [facility] Hemoglobin Ql (U) Negative Negative [facility] Interpretation and review of laboratory results Abnormal [facility] Ketones Ql (U) Negative Negative [facility] Leukocyte esterase Test strip Ql (U) Trace Abnormal Negative [facility] Nitrite Ql (U) Negative Negative [facility] pH (U) 5.5 [pH] NINF - 8.5 [facility] Protein (U) [Mass/Vol] 2+ Abnormal Negative [facility] Specific gravity (U) [Rel density] 1.010 1.005 - 1.030 [facility] Urobilinogen Ql (U) 0.2 EU/dL 0.2-1.0 EU/dL [facility] This test was develo ped and its performance characteristics determined by [facility] [place] ([facility]). It has not been cleared or approved by the FDA. [facility] is regulated under CLIA as qualified to perform high-complexity testing. This test is used for clinical purposes. It should not be regarded as investigational or for research. [facility] Bilirubin Ql (U) Negative Normal Negative [facility] Comment on above: Order Comment: Speci men Type: URINE SPECIMENOrdering Facility: [facility] Address: [address] [place] [address] Performed By: #### L [id number] ####[facility] [id number] [place] [address] [place] Clarity (Unsp spec) Clear Normal Clear [facility] Comment on above: Order Comment: Speci men Type: URINE SPECIMENOrdering Facility: [facility] Address: [address] [place] [address] Performed By: #### L [id number] ####[facility] [id number] [place] [address] [place] Color (U) Yellow Normal Yellow [facility] Comment on above: Order Comment: Speci men Type: URINE SPECIMENOrdering Facility: [facility] Address: [address] [place] [address] Performed By: #### L [id number] ####[facility] [id number] [place] [address] [place] Glucose Test strip (U) [Mass/Vol] 1+ Abnormal Negative [facility] Comment on above: Order Comment: Speci men Type: URINE SPECIMENOrdering Facility: [facility] Address: [address] [place] [address] Performed By: #### L [id number] ####[facility] [id number] [place] [address] [place] Hemoglobin Ql (U) Negative Normal Negative [facility] Comment on above: Order Comment: Speci men Type: URINE SPECIMENOrdering Facility: [facility] Address: [address] [place] [address] Performed By: #### L [id number] ####[facility] [id number] [place] [address] [place] Ketones Ql (U) Negative Normal Negative [facility] Comment on above: Order Comment: Speci men Type: URINE SPECIMENOrdering Facility: [facility] Address: [address] [place] [address] Performed By: #### L [id number] ####[facility]CL[facility] [id number] [place] [address] [place] Leukocyte esterase Test strip Ql (U) Trace Abnormal Negative [facility] Comment on above: Order Comment: Speci men Type: URINE SPECIMENOrdering Facility: [facility] Address: [address] [place] [address] Performed By: #### L [id number] ####[facility] [id number] [place] [address] [place] Nitrite Ql (U) Negative Normal Negative [facility] Comment on above: Order Comment: Speci men Type: URINE SPECIMENOrdering Facility: [facility] Address: [address] [place] [address] Performed By: #### L [id number] ####[facility] [id number] [place] [address] [place] pH (U) 5.5 [pH] Normal <8.5 [facility] Comment on above: Order Comment: Speci men Type: URINE SPECIMENOrdering Facility: [facility] Address: [address] [place] [address] Performed By: #### L [id number] ####[facility] LABIA [id number] [place] [address] [place] Protein (U) [Mass/Vol] 2+ Abnormal Negative [facility] Comment on above: Order Comment: Speci men Type: URINE SPECIMENOrdering Facility: [facility] Address: [address] [place] [address] Performed By: #### L [id number] ####[facility] LABIA [id number] [place] [address] [place] Specific gravity (U) [Rel density] 1.010 Normal 1.005-1.030 [facility] Comment on above: Order Comment: Speci men Type: URINE SPECIMENOrdering Facility: [facility] Address: [address] [place] [address] Performed By: #### L [id number] ####[facility] LABIA [id number] [place] [address] [place] Urobilinogen Ql (U) 0.2 EU/dL Normal 0.2-1.0 EU/dL [facility] Comment on above: Order Comment: Speci men Type: URINE SPECIMENOrdering Facility: [facility] Address: [address] [place] [address] [place] [address] Performed By: #### L [id number] ####[facility] LABCLIA [id number] [facility] RODRIGUE[facility] [place] [id number] [place] URINE CULTURE, ROUTINEon [...] Bacteria identified Cx Nom (U) Performed at: [facility] Bacteria identified Cx Nom (U) [address] [place], [place] [id number] [facility] Bacteria identified Cx Nom (U) Conference Services Manager: Chris Luna PhD, Phone: [phone] [facility] Drugs of abuse panel Screen (U)on 04-24-2024 Control Substance Panel, Urine SEE COMMENTS 04/28/2024 10:47 AM Abnormal [facility] Comment on above: Result Comment: NOTE Test Result Flag Unit RefValue - Controlled Substance Monitoring, U List Patient's Current HYDROCODONE Medications ADDITIONAL INFORMATION Accuracy and completeness of declared medications on reports solely dependent on information submitted by client. Creatinine, U 51.0 mg/dL Specific [place] 1.010 pH 5.4 Oxidants Negative -- REFERENCE [...] Not Detected ng/mL Cutoff: 25 Tylenol 3 Tmaimve-3-pgsl- Not Detected ng/mL Cutoff: 100 glucuronide Metabolite of codeine Morphine Not Detected ng/mL Cutoff: 25 Marium Leon, MS Contin; Also a minor metabolite (10%) of codeine and can be seen in low concentrations (<2,000 ng/mL) with poppy seed ingestion. Conbmtna-7-pkqu- Not Detected ng/mL Cutoff: 100 glucuronide Metabolite of morphine 6-monoacetylmorphine Not Detected ng/mL Cutoff: 25 Metabolite of heroin Hydrocodone Present A ng/mL Cutoff: 25 Lortab, Center, Vicodin; Also a very minor metabolite of codeine and impurity (<1%) of oxycodone. Norhydrocodone Present A ng/mL Cutoff: 25 Metabolite of hydrocodone Dihydrocodeine Present A ng/mL Cutoff: 25 Metabolite of hydrocodone Hydromorphone Not Detected ng/mL Cutoff: 25 Dilaudid, Exalgo; Also a metabolite of hydrocodone and a minor (<5%) metabolite of morphine. Rgpsexkiuzrmm-0-ntuy- Present A ng/mL Cutoff: 100 glucuronide Metabolite of hydromorphone Oxycodone Not Detected ng/mL Cutoff: 25 Endocet, Percocet, Oxycontin Noroxycodone Not Detected ng/mL Cutoff: 25 Metabolite of oxycodone Oxymorphone Not Detected ng/mL Cutoff: 25 Numorphan, Opana; Also a metabolite of oxycodone. Zbdegyrpzim-6-oxkh- Not Detected ng/mL Cutoff: 100 glucuronide Metabolite [...] Naloxone Not Detected ng/mL Cutoff: 25 Narcan Akfmpwaz-7-kqsz- Not Detected ng/mL Cutoff: 100 glucuronide Metabolite [...] of its metabolites (norhydrocodone and dihydrocodeine), and setyvyxwrqbvl-3-desi-glucuronide (metabolite of hydromorphone). Suspect use of hydrocodone and/or hydromorphone within the past three days. Trace amounts of hydrocodone can also be found as an impurity in hydromorphone. 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 Bladder remodeling without VUR. Valsalva voiding with atonic detrusor. Will refer to consider bladder augmentation. Carmenza Nolen MD Voiding cystourethrogram- Voiding Cystourethrogram Patient Name - Aislinn Wheeler Date - April 02, 2024 Imaging exam - VCUG Number of images saved - 11 Patient position - Sitting Radiologic Findings: A congressional assistant radiograph was obtained. The bony and soft tissue structures are within normal. 147 ccs contrast were used to fill the bladder. The bladder outline is irregular/trabeculated and abnormal shaped appearing. There is no ureteral reflux. During the voiding phase there is abnormal bladder neck opening and urethra is not visualized. Bladder emptying is not visualized Read (more content not included)... Normal [facility] CNOVon 03-26-2024 CNOV Office Visit (UROLAV ) AISLINN WHEELER ([id number]) 1960 F Date Time Provider Department 03/26/24 [...] Carmenza Nolen MD 03/26/2024 11:54 AM Signed [facility] FOR FEM[facility] [...] her bladder. Had bladder botox injections at [facility] about 3 mo ago with no improvement. [...] Assessed 03/26/2024 PHYSICAL EXAM: Patient declined a litigation specialist General: No acute distress, well appearing [...] Signed INFOR (more content not included)... Normal [facility] UA DIP, URINE (POC)on 2023 BILIRUBIN UA (POCT) Negative Negative [facility] CLARITY UA (POCT) Cloudy [facility] COLOR UA (POCT) Light yellow [facility] GLUCOSE UA (POCT) Negative Negative mg/dL [facility] Hemoglobin Ql (U) Trace-intact Abnormal Negative [facility] Interpretation and review of laboratory results Abnormal [facility] KETONE UA (POCT) Negative Negative mg/dL [facility] LEUKOCYTES UA (POCT) Moderate Abnormal Negative [facility] NITRITE UA (POCT) Negative Negative [facility] PH UA (POCT) 6.0 4.5 - 8.0 [facility] [facility] Protein Ql (U) 100 mg/dL Abnormal Negative [facility] SPECIFIC GRAVITY UA (POCT) 1.020 1.005 - 1.030 [facility] UROBILINOGEN UA (POCT) 0.2 Normal E.U./dL [facility] Location:[facility], [address] , [place], [place], [address] [facility] POINT OF CARE [facility] Glucose Glucometer (BldC) [M ass/Vol]on 03-15-2024 Glucose [Mass/Vol] 164 mg/dL High 65-99 [facility] 02-26-2024 CNPN Telephone (URR) AISLINN WHEELER ([id number]) 1960 F Date Time Provider Department 02/26/24 FLAVIO COON [facility] During your visit today, we recorded the following information about you: Flavio Coon, RN 02/26/2024 2:46 PM Signed Pt LVM asking for her CT scan results. Noted in pt chart was an unread message from regarding the most recent CT scan. LVM for pt and let her know about [employer] message and provided number if pt has [...] Encounter Status:Closed by FLAVIO [facility]24 [facility] Tele[facility] (URR) AISLINN WHEELER ([id number]) 1960 F Date Time Provider Department 02/12/24 VONNIE WILDER [facility] During your visit today, we recorded the following information about you: Vonnie Widler RN 02/12/2024 4:22 PM Signed Patient LVM [...] Encounter Status:Closed by VONNIE WILDER on 02/12/24 [facility] CT Kidney WO and W contrast IVOrdered By: Ccf Provider on 02-02-2024 Interpretation and review of laboratory results Abnormal [facility] Radiology Result ACTIONABLE Abnormal [facility] Comment on above: This report contains [...] contact your provider for the next steps. [facility] CT Kidney WO and W contrast Mirna [...] be communicated with the ordering provider via [employer] staff message or phone message by [employer] within 2 business days of report finalization. --END OF FINDING-- Transcribe Date/Time: Feb 02 2024 9:09A Dictated by: AYAZ ADAMS MD This examination was interpreted and the report reviewed and electronically signed by: AYAZ ADMAS MD on Feb 02 2024 9:42AM EST Thank you for allowing us to participate in the care of your patient. Should there be any questions regarding this interpretation, please call [phone]. If you are unable to reach us at the number above, please feel free to contact [facility] at [phone]. DIVISION OF RADIOLOGY * * *Final Report* * * DATE OF EXAM: Feb 01 2024 3:26PM [facility] 0560 - CT UROGRAM WO/W [...] dated 01/20/[address] scan dated 01/17/21 [facility] RESULT: Kidneys and urinary tract: Right: There [...] No additional findings. DIVISION OF RADIOLOGY Provider, [facility] - 02/02/2024 * * *Final Report* * * DATE OF EXAM: Feb 01 2024 3:26PM [facility] 0560 - CT UROGRAM WO/W [...] be communicated with the ordering provider via [employer] staff message or phone message by Imaging [...] any questions regarding this interpretation, please call [phone]. If you are unable to reach us at the number above, please feel free to contact [facility] eRadiology at [phone]. [facility] CREATININE BLDOrdered By: James mayberry Blade on 02-01-2024 Creatinine [Mass/Vol] 1.78 mg/dL High 0.58 - 0.96 mg/dL [facility] GFR/1.73 sq M.predicted among non-blacks MDRD (S/P/Bld) [Vol rate/Area] 31 mL/min/{1.73_m2} Low - PINF [facility] Comment on above: Estimated Glomerular Filtration Rate [...] Interpretation and review of laboratory results Abnormal [facility] CREATININE BLDon 02-01-2024 Creatinine [Mass/Vol] 1.78 mg/dL High 0.58-0.96 [facility] Comment on above: Order Comment: Speci men Type: BLOOD SPECIMENOrdering Facility: [facility] Address: [address] [place] [address] Performed By: #### C RET1 ####[facility] LABCLIA [id number] [place] [address] Creatinine and Glomerular filtration rate.predicted panel (S/P/Bld) 31 mL/min/1.73m??? Low >=60 [facility] Comment on above: Order Comment: Speci men Type: BLOOD SPECIMENOrdering Facility: [facility] Address: [address] [place] [address] Result Comment: Donna mated Glomerular Filtration Rate [...] actual GFR. Performed By: #### C RET1 ####[facility] LABCLIA [id number] [place] [address] CT Kidney WO and W contrast Mirna 02-01-2024 Radiology Study observation (narrative) [facility] CT UROGRAM WO/W IVCONon 01-19 CT UROGRAM WO/W IVCON * * *Final Report* * * DATE OF EXAM: Feb 01 2024 3:26PM [facility] 0560 - CT UROGRAM WO/W [...] be communicated with the ordering provider via [employer] staff message or phone message by Imaging [...] any questions regarding this interpretation, please call [phone]. If you are unable to reach us at the number above, please feel free to contact [facility] eRadiology at [phone]. [id number] ACTIONABLE Invalid Interpretation Code [facility] CNOVon 01-12-2024 CNOV Office Visit (URFMOB ) AISLINN WHEELER ([id number]) 1960 F Date Time Provider Department 01/12/24 1:50 PM TAURUS BALLARD URFMOB During your visit today, we recorded the following information about you: Pulse Blood pressure 75/minute 142/69 Taurus Ballard MD 01/12/2024 2:43 PM Signed [facility] FOLLOW-UP PATIENT HISTORY AND PHYSICAL [...] urogram Will refer to Dr. Tamanna Ruiz APRN.BEAD CUTTER Attending Note I have personally performed a [...] her ki (more content not included)... Normal [facility] UA DIP, URINE (POC)on 2023 BILIRUBIN UA (POCT) Negative Negative [facility] CLARITY UA (POCT) Clear [facility] COLOR UA (POCT) Yellow [facility] GLUCOSE UA (POCT) 100 mg/dL Abnormal Negative [facility] Hemoglobin Ql (U) Trace-intact Abnormal Negative [facility] Interpretation and review of laboratory results Abnormal [facility] KETONE UA (POCT) Negative Negative mg/dL [facility] LEUKOCYTES UA (POCT) Small Abnormal Negative [facility] (POCT) Negative Negative [facility] PH UA (POCT) 5.5 4.5 - 8.0 [facility] Protein Ql (U) 100 mg/dL Abnormal Negative [facility] SPECIFIC GRAVITY UA (POCT) 1.015 1.005 - 1.030 [facility] UROBILINOGEN UA (POCT) 0.2 Normal E.U./dL [facility] Location:[facility], [address] [address] [place], [place], [address] [place] [address] POINT OF CARE [facility] ED Note-Physicianon 10-30-19 ED Note-Physician [id number]#1.00 TIFF Normal [facility] Lab Reportson 10-30-2023 Lab Reports [id number]#1.00T IFF Normal [facility] Lab Reports [id number]#1.00T IFF Normal [facility] Urology Office/Clinic Noteon 10-26-2023 Urology Office/Clinic Note Chief Complaint S/P to Cysto with Botox HPI Staff KML pt. Here for f/u to Botox 100u done 05/22/23. R/s'd appt from 06/28/23. Previous dx: renal cyst, mixed incontinence, feeling of incomplete bladder emptying, glucosuria. Pt was referred to Dr. Ballard at [facility] for evaluation of robotic left cyst decortication. [...] Assessment/Plan 1. 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 BURKE [...] procedure. This is confusing bc review of [facility]'s op report shows completely normal events (lidocaine instilled normally, 10 injections of 2ml each) so it's unclear if pt received full 100units or not. Pt called 06/08/23 c/o worsening leakage after Botox. PVR was 174 cc (compared to 142cc prior to botox). [facility] recommended to start CIC 3x/day for residual, timed voids q2hr, and tight DM control. Pt was in [facility] ER 06/19 and treated for E [...] kidney measuri (more content not included)... Normal [facility] Comment on above: Result Comment: Elec [...] HEIDY ARNOLD PA-C, URL When: Where: [address] [place] [address] Medications What How Much When Instructions Unchanged [...] including vitamins, herbs, eye drops, creams, and zqpm-duo-dpnsuan medicines. ? Any problems you or family [...] Do no (more content not included)... Normal [facility] Patient Educationon 10-25-19 24 Patient Education Urology [...] including vitamins, herbs, eye drops, creams, and xihh-scj-mvdmrkt medicines. ? Any problems you or family [...] tells you to take them. ? Taking nrze-zmb-okawzxv medicines, vitamins, herbs, and supplements. General instructions [...] these instructions at home: Medicines ? Take zfaj-orv-suesyqz and prescription medicines only as told by [...] health ca (more content not included)... Normal [facility] Glucose Glucometer (dC) [M ass/Vol]on 10-13-2023 Glucose [Mass/Vol] 276 mg/dL High 65-99 [facility] Glucose Glucometer (BldC) [M ass/Vol]on 09-29-2023 Glucose [Mass/Vol] 356 mg/dL High 65-99 [facility] CNPNon 09-27-2023 CNPN Telephone (FVPRAD) AISLINN WHEELER ([id number]) 1960 F Date Time Provider Department 09/27/23 DREW BUCKNER FVPRAD During your visit today, we recorded the following information about you: Drew Buckner, Research Coordinator 09/27/2023 2:33 PM Signed IRB# [id number]: Vascular events in patients undergoing same-day nonCardiac surgery - [place] PI: Mary Rojas MD, LETY, FASA. Outcomes Research Department. Anesthesia [place]. [facility]. Aislinn Wheeler was unavailable at the listed phone number. We will attempt to contact the patient through [employer] message. Drew Esqueda, Research Coordinator Research Coordinator Allergies As of Date: 09/27/2023 Noted Allergy Reaction LATEX 02/05/2020 2 - Rash Comments: Added based on information entered during case entry, please review and add reactions, type, and severity as needed Date Reviewed: 09/03/2023 Reviewed by: Chuck Kirk, RN - Fully Assessed Reason for Visit: Research F/U [938] Prescriptions as of 09/27/2023 - pregabalin (LYRICA) [...] without hematuria [N39.*08/31/2023 09/04/2023 Encounter Status:Closed by DRWE BUCKNER on 09/27/23 [facility] 09-26-2023 CNPN Telephone (FVPRAD) AISLINN WHEELER ([id number]) 1960 F Date Time Provider Department 09/26/23 DREW BUCKNER FVPRAD During your visit today, we recorded the following information about you: Drew Buckner, Research Coordinator 09/26/2023 3:32 PM Signed IRB# [id number]: Vascular events in patients undergoing same-day nonCardiac surgery - [place] PI: Mary Rojas MD, LETY, FASA. Outcomes Research Department. Anesthesia [place]. [facility]. Aislinn Wheeler was unavailable at the listed [...] Fully Assessed Reason for Visit: Research F/U [220] Prescriptions as of 09/26/2023 - pregabalin (LYRICA) [...] Encounter Status:Closed by DREW BUCKNER on 09/26/23 [facility] CNDSon 09-04-2023 CNDS HNO ID: [id number] Author: ANTHONY BARROW MD Service: Hospital Medicine [...] Center 10/06/2023 1:00 PM US [facility] BRITTANIE [place] [facility] Brittanie 10/06/2023 2:00 PM LAB [facility] [place] [facility] Brittanie 10/11/2023 1:50 PM Taurus Ballard MD [facility] ALLERGIES Allergen Reactions Latex Rash Added [...] U-100 INSULIN SUBCUTANEO (more content not included)... [facility] ALLIED HEALTHon 09-03-2023 ALLIED HEALTH HNO ID: [id number] Author: NICOL MILLIGAN RT(R) Service: Radiology Author [...] RT Michael(R) September 03, 2023 2:57 PM [facility] Basic metabolic 2000 panelon 09-03-2023 Anion gap [Moles/Vol] 10 mmol/L Normal 9-18 [facility] Comment on above: Order Comment: [place] Type: BLOOD SPECIMEN [facility] Address: [address] [place] [address] Performed By: #### 2 4321-2 #### [facility] CLIA [id number] [address] [place] [address] [place] Calcium [Mass/Vol] 8.8 mg/dL Normal 8.5-10.2 [facility] Comment on above: Order Comment: Speci reinier Type: BLOOD SPECIMEN [facility]ing Facility: [facility] Address: [address] [place] [address] Performed By: #### 2 4321-2 #### [facility] CLIA [id number] [address] [place] [address] [place] Chloride [Moles/Vol] 103 mmol/L Normal 97-105 [facility] Comment on above: Order Comment: Speci men Type: BLOOD SPECIMEN [facility]ing [facility]: [facility] Address: [address] [place] [address] Performed By: #### 2 4321-2 #### [facility] CLIA [id number] [address] [place] [address] [place] CO2 [Moles/Vol] 23 mmol/L Normal 22-30 [facility] Comment on above: Order Comment: Speci men Type: BLOOD SPECIMEN [facility]ing [facility]: [facility] Address: [address] [place] [address] Performed By: #### 2 4321-2 #### [facility] CLIA [id number] [address] [place] [address] [place] Creatinine [Mass/Vol] 1.29 mg/dL High 0.58-0.96 [facility] Comment on above: Order Comment: Speci men Type: BLOOD SPECIMEN [facility]ing [facility]: [facility] Address: [address] [place] [address] Performed By: #### 2 4321-2 #### [facility] CLIA [id number] [address] [place] [address] [place] Creatinine and Glomerular filtration rate.predicted panel (S/P/Bld) 46 mL/min/1.73m??? Low >=60 [facility] Comment on above: Order Comment: Speci men Type: BLOOD SPECIMEN [facility]: [facility] Address: [address] [place] [address] Result Comment: Donna mated Glomerular Filtration Rate [...] GFR. Performed By: #### 2 4321-2 #### [facility] CLIA [id number] [address] [place] [address] [place] Glucose [Mass/Vol] 123 mg/dL High 74-99 [facility] Comment on above: Order Comment: [place] Type: BLOOD SPECIMEN [facility]ing [facility]: [facility] Address: [address] [place] [address] Result Comment: The [place] Diabetes Association (ADA) provides guidance for cutoff [...] Standards of Medical Care in Diabetes 2016, [place] Diabetes Association. Diabetes Care. 2016.39(Suppl 1). Performed By: #### 2 4321-2 #### [facility] CLIA [id number] [address] [place] [address] [place] Potassium [Moles/Vol] 5.0 mmol/L Normal 3.7-5.1 [facility] Comment on above: Order Comment: [place] Type: BLOOD SPECIMEN [facility]ing [facility]: [facility] Address: [address] [place] [address] Performed By: #### 2 4321-2 #### [facility] CLIA [id number] [address] [place] [address] [place] Sodium [Moles/Vol] 136 mmol/L Normal 136-144 [facility] Comment on above: Order Comment: [place] Type: BLOOD SPECIMEN [facility] Address: [address] [place] [address] Performed By: #### 2 4321-2 #### [facility] CLIA [id number] [address] [place] [address] [place] Urea nitrogen [Mass/Vol] 22 mg/dL High 7-21 [facility] Comment on above: Order Comment: Speci men Type: BLOOD SPECIMEN [facility]: [facility] Address: [address] [place] [address] Performed By: #### 2 4321-2 #### [facility] CLIA [id number] [address] [place] [address] [place] CBC panel Auto (Bld)on 09-03 Erythrocyte distribution width (RBC) [Ratio] 14.6 % Normal 11.5-15.0 [facility] Comment on above: Order Comment: Speci men Type: BLOOD SPECIMEN [facility]ing [facility]: [facility] Address: [address] [place] [address] Performed By: #### B [place], [address]-6 #### [facility] CLIA [id number] [address] [place] [address] [place] Hematocrit (Bld) [Volume fraction] 28.7 % Low 36.0-46.0 [facility] Comment on above: Order Comment: Speci men Type: BLOOD SPECIMEN [facility]: [facility] Address: [address] [place] [address] Performed By: #### B HB, 47684-2 #### [facility] CLIA [id number] [address] [place] [address] [place] Hemoglobin (Bld) [Mass/Vol] 8.9 g/dL Low 11.5-15.5 [facility] Comment on above: Order Comment: Speci men Type: BLOOD SPECIMEN [facility]: [facility] Address: [address] [place] [address] Performed By: #### B HB, 15689-7 #### [facility] CLIA [id number] [address] [place] [address] [place] MCH (RBC) [Entitic mass] 24.1 pg Low 26.0-34.0 [facility] Comment on above: Order Comment: Speci men Type: BLOOD SPECIMEN [facility] Address: [address] [place] [address] Performed By: #### [place], 52127-3 #### [facility] CLIA [id number] [address] [place] [address] [place] MCHC (RBC) [Mass/Vol] 31.0 g/dL Normal 30.5-36.0 [facility] Comment on above: Order Comment: Speci men Type: BLOOD SPECIMEN [facility] Address: [address] [place] [address] Performed By: #### B HB, #### [facility] CLIA [id number] [address] [place] [address] [place] MCV (RBC) [Entitic vol] 77.6 fL Low 80.0-100.0 [facility] Comment on above: Order Comment: Speci men Type: BLOOD SPECIMEN [facility]: [facility] Address: [address] [place] [address] Performed By: #### B HB, #### [facility] CLIA [id number] [address] [place] [address] [place] Nucleated RBC (Bld) [#/Vol] 10*3/uL Normal <0.01 [facility] Comment on above: Order Comment: Speci men Type: BLOOD SPECIMEN [facility]: [facility] Address: [address] [place] [address] Performed By: #### B HB, #### [facility] CLIA [id number] [address] [place] [address] [place] Platelet mean volume (Bld) [Entitic vol] 10.8 fL Normal 9.0-12.7 [facility] Comment on above: Order Comment: Speci men Type: BLOOD SPECIMEN [facility]: [facility] Address: [address] [place] [address] Performed By: #### B HB, #### [facility] CLIA [id number] [address] [place] [address] [place] Platelets (Bld) [#/Vol] 334 10*3/uL Normal 150-400 [facility] Comment on above: Order Comment: Speci men Type: BLOOD SPECIMEN [facility] Address: [address] [place] [address] Performed By: #### B HB, 03083-7 #### [facility] CLIA [id number] [address] [place] [id number] [place] RBC (Bld) [#/Vol] 3.70 10*6/uL Low 3.90-5.20 [facility] Comment on above: Order Comment: Speci men Type: BLOOD SPECIMEN [facility]: [facility] Address: [address] [place] [address] Performed By: #### B HB, 40743-7 #### [facility] CLIA [id number] [address] [place] [id number] [place] WBC (Bld) [#/Vol] 6.44 10*3/uL Normal 3.70-11.00 [facility] Comment on above: Order Comment: Speci men Type: BLOOD SPECIMEN [facility] Address: [address] [place] [address] Performed By: #### B [place], 37640-9 #### [facility] CLIA [id number] [address] [place] [address] [place] CT FOOT WO [...] NO EVIDENCE OF OSTEOMYELITIS ON THIS EXAMINATION. [employer] Head: GUILLE Transcribe Date/Time: Sep 03 2023 11:22P Dictated by : FINESSE BUTLER MD This examination was interpreted and the report reviewed and electronically signed by: FINESSE BUTLER MD on Sep 03 2023 11:27PM EST [id number] Normal [facility] Basic metabolic 2000 panelon 09-02-2023 Anion gap [Moles/Vol] 9 mmol/L Normal 9-18 [facility] Comment on above: Order Comment: Speci men Type: BLOOD SPECIMEN [facility]: [facility] Address: [address] [place] [address] Performed By: #### B HB, 70871-1 #### [facility] CLIA [id number] [address] [place] [address] [place] Calcium [Mass/Vol] 8.1 mg/dL Low 8.5-10.2 [facility] Comment on above: Order Comment: Speci men Type: BLOOD SPECIMEN Ordering [facility]: [facility] Address: [address] [place] [address] Performed By: #### B HB, #### [facility] CLIA [id number] [address] [place] [address] [place] Chloride [Moles/Vol] 106 mmol/L High 97-105 [facility] Comment on above: Order Comment: Speci men Type: BLOOD SPECIMEN Ordering [facility]: [facility] Address: [address] [place] [address] Performed By: #### B HB, 10677-5 #### [facility] CLIA [id number] [address] [place] [address] [place] CO2 [Moles/Vol] 22 mmol/L Normal 22-30 [facility] Comment on above: Order Comment: Speci men Type: BLOOD SPECIMEN Order[facility] Address: [address] [place] [address] Performed By: #### B HB, 18309-2 #### [facility] CLIA [id number] [address] [place] [address] [place] Creatinine [Mass/Vol] 1.30 mg/dL High 0.58-0.96 [facility] Comment on above: Order Comment: [place] Type: BLOOD SPECIMEN Order[facility]: [facility] Address: [address] [place] [address] Performed By: #### B [place], 57301-8 #### [facility] CLIA [id number] [place] [address] [place] Creatinine and Glomerular filtration rate.predicted panel (S/P/Bld) 46 mL/min/1.73m??? Low >=60 [facility] Comment on above: Order Comment: [place] Type: BLOOD SPECIMEN Ordering [facility]: [facility] Address: [address] [place] [address] Result Comment: Donna mated Glomerular Filtration Rate [...] actual GFR. Performed By: #### B HB, 39593-9 #### [facility] CLIA [id number] [place] [address] [place] Glucose [Mass/Vol] 192 mg/dL High 74-99 [facility] Comment on above: Order Comment: [place] Type: BLOOD SPECIMEN Ordering Facility: [facility] Address: [address] [place] [address] Result Comment: The [place] Diabetes Association (ADA) provides guidance for cutoff [...] Standards of Medical Care in Diabetes 2016, [place] Diabetes Association. Diabetes Care. 2016.39(Suppl 1). Performed By: #### B HB, 37091-1 #### [facility] CLIA [id number] [address] [place] [address] [place] Potassium [Moles/Vol] 4.9 mmol/L Normal 3.7-5.1 [facility] Comment on above: Order Comment: Speci men Type: BLOOD SPECIMEN Ordering [facility]: [facility] Address: [address] [place] [address] Performed By: #### B [place], 16646-8 #### [facility] CLIA [id number] [address] [place] [address] [place] Sodium [Moles/Vol] 137 mmol/L Normal 136-144 [facility] Comment on above: Order Comment: Speci men Type: BLOOD SPECIMEN Ordering Facility: [facility] Address: [address] [place] [address] Performed By: #### [place], 82102-9 #### [facility] CLIA [id number] [address] [place] [address] [place] Urea nitrogen [Mass/Vol] 17 mg/dL Normal 7-21 [facility] Comment on above: Order Comment: Speci men Type: BLOOD SPECIMEN Ordering Facility: [facility] Address: [address] [place] [address] Performed By: #### [place], 76342-0 #### [facility] CLIA [id number] [address] [place] [address] [place] CBC panel Auto (Bld)on 09-02 Erythrocyte distribution width (RBC) [Ratio] 14.6 % Normal 11.5-15.0 [facility] Comment on above: Order Comment: Speci men Type: BLOOD SPECIMEN Ordering Facility: [facility] Address: [address] [place] [address] Performed By: #### B HB, 91522-9 #### [facility] CLIA [id number] [address] [place] [address] [place] Hematocrit (Bld) [Volume fraction] 28.4 % Low 36.0-46.0 [facility] Comment on above: Order Comment: Speci men Type: BLOOD SPECIMEN Ordering Facility: [facility] Address: [address] [place] [address] Performed By: #### B HB, #### [facility] CLIA [id number] [address] [place] [address] [place] Hemoglobin (Bld) [Mass/Vol] 8.9 g/dL Low 11.5-15.5 [facility] Comment on above: Order Comment: Speci men Type: BLOOD SPECIMEN Ordering Facility: [facility] Address: [address] [place] [address] Performed By: #### B HB, #### [facility] CLIA [id number] [address] [place] [address] [place] MCH (RBC) [Entitic mass] 24.2 pg Low 26.0-34.0 [facility] Comment on above: Order Comment: Speci men Type: BLOOD SPECIMEN Ordering Facility: [facility] Address: [address] [place] [address] Performed By: #### B HB, #### [facility] CLIA [id number] [address] [place] [address] [place] MCHC (RBC) [Mass/Vol] 31.3 g/dL Normal 30.5-36.0 [facility] Comment on above: Order Comment: Speci men Type: BLOOD SPECIMEN Ordering Facility: [facility] Address: [address] [place] [address] Performed By: #### B HB, #### [facility] CLIA [id number] [address] [place] [address] [place] MCV (RBC) [Entitic vol] 77.2 fL Low 80.0-100.0 [facility] Comment on above: Order Comment: Speci men Type: BLOOD SPECIMEN Ordering Facility: [facility] Address: [address] [place] [address] Performed By: #### B HB, 11911-9 #### [facility] CLIA [id number] [address] [place] [address] [place] Nucleated RBC (Bld) [#/Vol] 10*3/uL Normal <0.01 [facility] Comment on above: Order Comment: Speci men Type: BLOOD SPECIMEN Ordering Facility: [facility] Address: [address] [place] [address] Performed By: #### B HB, 76129-7 #### [facility] CLIA [id number] [address] [place] [address] [place] Platelet mean volume (Bld) [Entitic vol] 10.4 fL Normal 9.0-12.7 [facility] Comment on above: Order Comment: Speci men Type: BLOOD SPECIMEN Ordering Facility: [facility] Address: [address] [place] [address] Performed By: #### B HB, #### [facility] CLIA [id number] [address] [place] [address] [place] Platelets (Bld) [#/Vol] 285 10*3/uL Normal 150-400 [facility] Comment on above: Order Comment: Speci men Type: BLOOD SPECIMEN Ordering Facility: [facility] Address: [address] [place] [address] Performed By: #### B HB, #### [facility] CLIA [id number] [address] [place] [address] [place] RBC (Bld) [#/Vol] 3.68 10*6/uL Low 3.90-5.20 [facility] Comment on above: Order Comment: Speci men Type: BLOOD SPECIMEN Ordering Facility: [facility] Address: [address] [place] [address] Performed By: #### B [place], 77176-0 #### [facility] CLIA [id number] [address] [place] [address] [place] WBC (Bld) [#/Vol] 5.94 10*3/uL Normal 3.70-11.00 [facility] Comment on above: Order Comment: Speci men Type: BLOOD SPECIMEN Ordering Facility: [facility] Address: [address] [place] [address] Performed By: #### [place], [address]-2 #### [facility] CLIA [id number] [address] [place] [address] [place] Bacteria Ur Culton Bacteria identified Cx Nom (U) CULTURE, URINE: No growth (<1,000 CFU/ml) Normal [facility] Comment on above: Performed By: #### 6 30-4 #### [facility] CLIA [id number] [address] [facility] [address] [place], [place] [address] [place] Basic metabolic 2000 panelon 09-01-2023 Anion gap [Moles/Vol] 10 mmol/L Normal 9-18 [facility] Comment on above: Order Comment: Speci men Type: BLOOD SPECIMEN Ordering Facility: [facility] Address: [address] [place] [address] Performed By: #### Kimberlyn HB, #### [facility] CLIA [id number] [address] [place] [address] [place] Calcium [Mass/Vol] 7.9 mg/dL Low 8.5-10.2 [facility] Comment on above: Order Comment: Speci men Type: BLOOD SPECIMEN Ordering Facility: [facility] Address: [address] [place] [address] Performed By: #### Kimberlyn HB, #### [facility] CLIA [id number] [address] [place] [address] [place] Chloride [Moles/Vol] 108 mmol/L High 97-105 [facility] Comment on above: Order Comment: Speci men Type: BLOOD SPECIMEN Ordering Facility: [facility] Address: [address] [place] [address] Performed By: #### B HB, 68055-6 #### [facility] CLIA [id number] [address] [place] [address] [place] CO2 [Moles/Vol] 20 mmol/L Low 22-30 [facility] Comment on above: Order Comment: [place] Type: BLOOD SPECIMEN Ordering Facility: [facility] Address: [address] [place] [address] Performed By: #### B HB, 75563-3 #### [facility] CLIA [id number] [address] [place] [address] [place] Creatinine [Mass/Vol] 1.39 mg/dL High 0.58-0.96 [facility] Comment on above: Order Comment: [place] Type: BLOOD SPECIMEN Ordering Facility: [facility] Address: [address] [place] [address] Performed By: #### B HB, 17137-7 #### [facility] CLIA [id number] [address] [place] [address] [place] Creatinine and Glomerular filtration rate.predicted panel (S/P/Bld) 42 mL/min/1.73m??? Low >=60 [facility] Comment on above: Order Comment: [place] Type: BLOOD SPECIMEN Ordering Facility: [facility] Address: [address] [place] [address] Result Comment: Donna mated Glomerular Filtration Rate [...] actual GFR. Performed By: #### B HB, 94635-1 #### [facility] CLIA [id number] [place] [address] [place] Glucose [Mass/Vol] 74 mg/dL Normal 74-99 [facility] Comment on above: Order Comment: [place] Type: BLOOD SPECIMEN Ordering Facility: [facility] Address: [address] [place] [address] Result Comment: The [place] Diabetes Association (ADA) provides guidance for cutoff [...] Standards of Medical Care in Diabetes 2016, [place] Diabetes Association. Diabetes Care. 2016.39(Suppl 1). Performed By: #### B HB, 89219-0 #### [facility] CLIA [id number] [address] [place] [address] [place] Potassium [Moles/Vol] 4.7 mmol/L Normal 3.7-5.1 [facility] Comment on above: Order Comment: [place] Type: BLOOD SPECIMEN Ordering Facility: [facility] Address: [address] [place] [address] Performed By: #### B HB, 83379-2 #### [facility] CLIA [id number] [address] [place] [address] [place] Sodium [Moles/Vol] 138 mmol/L Normal 136-144 [facility] Comment on above: Order Comment: [place] Type: BLOOD SPECIMEN Ordering Facility: [facility] Address: [address] [place] [address] Performed By: #### B HB, 01125-7 #### [facility] CLIA [id number] [address] [place] [address] [place] Urea nitrogen [Mass/Vol] 25 mg/dL High 7-21 [facility] Comment on above: Order Comment: [place] Type: BLOOD SPECIMEN Ordering Facility: [facility] Address: [address] [place] [address] Performed By: #### B HB, 41273-8 #### [facility] CLIA [id number] [address] [place] [address] [place] CBC panel Auto (Bld)on 09-01 Erythrocyte distribution width (RBC) [Ratio] 14.7 % Normal 11.5-15.0 [facility] Comment on above: Order Comment: [place] Type: BLOOD SPECIMEN Ordering Facility: [facility] Address: [address] [place] [address] Performed By: #### B HB, #### [facility] CLIA [id number] [address] [place] [address] [place] Hematocrit (Bld) [Volume fraction] 29.4 % Low 36.0-46.0 [facility] Comment on above: Order Comment: Speci men Type: BLOOD SPECIMEN Ordering Facility: [facility] Address: [address] [place] [address] Performed By: #### B HB, #### [facility] CLIA [id number] [address] [place] [address] [place] Hemoglobin (Bld) [Mass/Vol] 9.1 g/dL Low 11.5-15.5 [facility] Comment on above: Order Comment: Speci men Type: BLOOD SPECIMEN Ordering Facility: [facility] Address: [address] [place] [address] Performed By: #### B HB, #### [facility] CLIA [id number] [address] [place] [address] [place] MCH (RBC) [Entitic mass] 24.4 pg Low 26.0-34.0 [facility] Comment on above: Order Comment: Speci men Type: BLOOD SPECIMEN Ordering Facility: [facility] Address: [address] [place] [address] Performed By: #### B HB, #### [facility] CLIA [id number] [address] [place] [address] [place] MCHC (RBC) [Mass/Vol] 31.0 g/dL Normal 30.5-36.0 [facility] Comment on above: Order Comment: Speci men Type: BLOOD SPECIMEN Ordering Facility: [facility] Address: [address] [place] [address] Performed By: #### B HB, #### [facility] CLIA [id number] [address] [place] [address] [place] MCV (RBC) [Entitic vol] 78.8 fL Low 80.0-100.0 [facility] Comment on above: Order Comment: Speci men Type: BLOOD SPECIMEN Ordering Facility: [facility] Address: [address] [place] [address] Performed By: #### B HB, #### [facility] CLIA [id number] [address] [place] [address] [place] Nucleated RBC (Bld) [#/Vol] 10*3/uL Normal <0.01 [facility] Comment on above: Order Comment: Speci men Type: BLOOD SPECIMEN Ordering Facility: [facility] Address: [address] [place] [address] Performed By: #### B HB, #### [facility] CLIA [id number] [address] [place] [address] [place] Platelet mean volume (Bld) [Entitic vol] 10.8 fL Normal 9.0-12.7 [facility] Comment on above: Order Comment: Speci men Type: BLOOD SPECIMEN Ordering Facility: [facility] Address: [address] [place] [address] Performed By: #### B HB, #### [facility] CLIA [id number] [address] [place] [address] [place] Platelets (Bld) [#/Vol] 275 10*3/uL Normal 150-400 [facility] Comment on above: Order Comment: Speci men Type: BLOOD SPECIMEN Ordering Facility: [facility] Address: [address] [place] [address] Performed By: #### B [place], 60501-2 #### [facility] CLIA [id number] [address] [place] [address] [place] RBC (Bld) [#/Vol] 3.73 10*6/uL Low 3.90-5.20 [facility] Comment on above: Order Comment: Speci men Type: BLOOD SPECIMEN Ordering Facility: [facility] Address: [address] [place] [address] Performed By: #### B HB, 50991-6 #### [facility] CLIA [id number] [address] [place] [address] [place] WBC (Bld) [#/Vol] 7.48 10*3/uL Normal 3.70-11.00 [facility] Comment on above: Order Comment: Speci men Type: BLOOD SPECIMEN Ordering Facility: [facility] Address: [address] [place] [address] Performed By: #### B HB, 63234-0 #### [facility] CLIA [id number] [address] [place] [address] [place] CONSULTon 09-01-2023 CONSULT HNO ID: [id number] Author: NORMAN ROUSSEAU RN Service: ? Author [...] 2023 TIME: 10:44 AM PAGER/CONTACT #: Normal [facility] Magnesium SerPl-mCncon 09-01 Magnesium [Mass/Vol] 1.5 mg/dL Low 1.7-2.3 [facility] Comment on above: Order Comment: Speci men Type: BLOOD SPECIMEN Ordering Facility: [facility] Address: [address] [place] [address] Performed By: #### B HB, 29495-1 #### [facility] CLIA [id number] [address] [place] [address] [place] URINALYSIS, REFLEX MICROSCOP ICon 09-01-2023 Bacteria LM.HPF (Urine sed) [#/Area] Few Abnormal None Seen [facility] Comment on above: Order Comment: Speci men Type: BLOOD SPECIMEN Ordering Facility: [facility] Address: [address] [place] [address] Performed By: #### B HB, 39676-9 #### [facility] CLIA [id number] [address] [place] [address] [place] Bilirubin Ql (U) Negative Normal Negative [facility] Comment on above: Order Comment: Speci men Type: BLOOD SPECIMEN Ordering Facility: [facility] Address: [address] [place] [address] Performed By: #### B HB, #### [facility] CLIA [id number] [place] [address] [place] Clarity (Unsp spec) Turbid Abnormal Clear [facility] Comment on above: Order Comment: Speci men Type: BLOOD SPECIMEN Ordering Facility: [facility] Address: [address] [place] [address] Performed By: #### B HB, #### [facility] CLIA [id number] [address] [place] [address] [place] Color (U) Light Yellow Normal Yellow [facility] Comment on above: Order Comment: Speci men Type: BLOOD SPECIMEN Ordering Facility: [facility] Address: [address] [place] [address] Performed By: #### B HB, #### [facility] CLIA [id number] [address] [place] [address] [place] Epithelial cells LM.HPF (Urine sed) [#/Area] Few Normal [facility] Comment on above: Order Comment: Speci men Type: BLOOD SPECIMEN Ordering Facility: [facility] Address: [address] [place] [address] Performed By: #### B HB, #### [facility] CLIA [id number] [address] [place] [address] [place] Glucose Test strip (U) [Mass/Vol] Negative Normal Trace, Negative [facility] Comment on above: Order Comment: Speci men Type: BLOOD SPECIMEN Ordering Facility: [facility] Address: [address] [place] [address] Performed By: #### B HB, #### [facility] CLIA [id number] [address] [place] [address] [place] Hemoglobin Ql (U) 1+ Abnormal Negative, Trace [facility] Comment on above: Order Comment: Speci men Type: BLOOD SPECIMEN Ordering Facility: [facility] Address: [address] [place] [address] Performed By: #### B HB, #### [facility] CLIA [id number] [address] [place] [address] [place] Ketones Ql (U) Negative Normal Negative, Trace [facility] Comment on above: Order Comment: Speci men Type: BLOOD SPECIMEN Ordering Facility: [facility] Address: [address] [place] [address] Performed By: #### B HB, #### [facility] CLIA [id number] [address] [place] [address] [place] Leukocyte esterase Test strip Ql (U) 500 Liam/uL Abnormal Negative, 25 Liam/uL [facility] Comment on above: Order Comment: Speci men Type: BLOOD SPECIMEN Ordering Facility: [facility] Address: [address] [place] [address] Performed By: #### B HB, #### [facility] CLIA [id number] [address] [place] [address] [place] Nitrite Ql (U) Negative Normal Negative [facility] Comment on above: Order Comment: Speci men Type: BLOOD SPECIMEN Ordering Facility: [facility] Address: [address] [place] [address] Performed By: #### B HB, #### [facility] CLIA [id number] [address] [place] [address] [place] pH (U) 6.0 [pH] Normal 5.0-8.0 [facility] Comment on above: Order Comment: Speci men Type: BLOOD SPECIMEN Ordering Facility: [facility] Address: [address] [place] [address] Performed By: #### B HB, #### [facility] CLIA [id number] [address] [place] [address] [place] Protein (U) [Mass/Vol] 1+ Abnormal Trace, Negative [facility] Comment on above: Order Comment: Speci men Type: BLOOD SPECIMEN Ordering Facility: [facility] Address: [address] [place] [address] Performed By: #### B HB, #### [facility] CLIA [id number] [address] [place] [address] [place] RBC LM.HPF (Urine sed) [#/Area] /[HPF] Abnormal 0-3 /HPF [facility] Comment on above: Order Comment: Speci men Type: BLOOD SPECIMEN Ordering Facility: [facility] Address: [address] [place] [address] Performed By: #### B HB, #### [facility] CLIA [id number] [address] [place] [address] [place] Specific gravity (U) [Rel density] 1.011 Normal 1.005-1.030 [facility] Comment on above: Order Comment: Speci men Type: BLOOD SPECIMEN Ordering Facility: [facility] Address: [address] [place] [address] Performed By: #### B HB, #### [facility] CLIA [id number] [address] [place] [address] Urobilinogen Ql (U) Negative Normal Negative [facility] Comment on above: Order Comment: Speci men Type: BLOOD SPECIMEN Ordering Facility: [facility] Address: [address] [place] [address] Performed By: #### B HB, #### [facility] CLIA [id number] [address] [place] [address] [place] WBC LM.HPF (Urine sed) [#/Area] /[HPF] Abnormal 0-5 /HPF [facility] Comment on above: Order Comment: Speci men Type: BLOOD SPECIMEN Ordering Facility: [facility] Address: [address] [place] [address] Performed By: #### B HB, #### [facility] CLIA [id number] [address] [place] [address] [place] ALLIED HEALTHon 08-31-2023 ALLIED HEALTH HNO ID: [id number] Author: LAKISHA LITTLE RT(R) Service: ? Author [...] RT Chriss(R) August 31, 2023 4:44 AM [facility] Bacteria Bld Culton 08-31-19 24 Bacteria identified Cx Nom (Bld) CULTURE, BLOOD: No growth 5 days Normal [facility] Comment on above: Performed By: #### 6 00-7 ####[facility] [id number] [place] [address] [place] Bacteria Ur Culton [...] technique or straight catheterization for???urine???collectio n. Normal [facility] Comment on above: Performed By: #### 6 30-4 #### [facility] CLIA [id number] [address] [place] [address] [place] CBC W Auto Differential pane l (Bld)on 08-31-2023 Basophils (Bld) [#/Vol] 0.03 10*3/uL Normal <0.11 [facility] Comment on above: Order Comment: Speci men Type: BLOOD SPECIMEN Ordering Facility: [facility] Address: [address] [place] [address] Performed By: #### B HB, #### [facility] CLIA [id number] [address] [place] [address] [place] Basophils/100 WBC (Bld) 0.3 % Normal [facility] Comment on above: Order Comment: Speci men Type: BLOOD SPECIMEN Ordering Facility: [facility] Address: [address] [place] [address] Performed By: #### B HB, #### [facility] CLIA [id number] [address] [place] [address] [place] Differential cell count method Nom (Bld) Auto Normal [facility] Comment on above: Order Comment: Speci men Type: BLOOD SPECIMEN Ordering Facility: [facility] Address: [address] [place] [address] Performed By: #### B HB, #### [facility] CLIA [id number] [address] [place] [address] [place] Eosinophils (Bld) [#/Vol] 10*3/uL Normal <0.46 [facility] Comment on above: Order Comment: Speci men Type: BLOOD SPECIMEN Ordering Facility: [facility] Address: [address] [place] [address] Performed By: #### B HB, #### [facility] CLIA [id number] [address] [place] [address] [place] Eosinophils/100 WBC (Bld) 0.1 % Normal [facility] Comment on above: Order Comment: Speci men Type: BLOOD SPECIMEN Ordering Facility: [facility] Address: [address] [place] [address] Performed By: #### B HB, #### [facility] CLIA [id number] [address] [place] [address] [place] Erythrocyte distribution width (RBC) [Ratio] 14.5 % Normal 11.5-15.0 [facility] Comment on above: Order Comment: Speci men Type: BLOOD SPECIMEN Ordering Facility: [facility] Address: [address] [place] [address] Performed By: #### B HB, #### [facility] CLIA [id number] [address] [place] [address] [place] Hematocrit (Bld) [Volume fraction] 31.5 % Low 36.0-46.0 [facility] Comment on above: Order Comment: Speci men Type: BLOOD SPECIMEN Ordering Facility: [facility] Address: [address] [place] [address] Performed By: #### B HB, #### [facility] CLIA [id number] [address] [place] [address] [place] Hemoglobin (Bld) [Mass/Vol] 10.0 g/dL Low 11.5-15.5 [facility] Comment on above: Order Comment: Speci men Type: BLOOD SPECIMEN Ordering Facility: [facility] Address: [address] [place] [address] Performed By: #### B HB, #### [facility] CLIA [id number] [address] [place] [address] [place] Immature granulocytes (Bld) [#/Vol] 0.06 10*3/uL Normal <0.10 [facility] Comment on above: Order Comment: Speci men Type: BLOOD SPECIMEN Ordering Facility: [facility] Address: [address] [place] [address] Performed By: #### B HB, #### [facility] CLIA [id number] [address] [place] [address] [place] Immature granulocytes/100 WBC (Bld) 0.7 % Normal [facility] Comment on above: Order Comment: Speci men Type: BLOOD SPECIMEN Ordering Facility: [facility] Address: [address] [place] [address] Performed By: #### B HB, #### [facility] CLIA [id number] [address] [place] [address] [place] Lymphocytes (Bld) [#/Vol] 1.67 10*3/uL Normal 1.00-4.00 [facility] Comment on above: Order Comment: Speci men Type: BLOOD SPECIMEN Ordering Facility: [facility] Address: [address] [place] [address] Performed By: #### B HB, #### [facility] CLIA [id number] [address] [place] [address] [place] Lymphocytes/100 WBC (Bld) 18.8 % Normal [facility] Comment on above: Order Comment: Speci men Type: BLOOD SPECIMEN Ordering Facility: [facility] Address: [address] [place] [address] Performed By: #### B HB, #### [facility] CLIA [id number] [address] [place] [address] [place] MCH (RBC) [Entitic mass] 24.5 pg Low 26.0-34.0 [facility] Comment on above: Order Comment: Speci men Type: BLOOD SPECIMEN Ordering Facility: [facility] Address: [address] [place] [address] Performed By: #### B HB, #### [facility] CLIA [id number] [address] [place] [address] [place] MCHC (RBC) [Mass/Vol] 31.7 g/dL Normal 30.5-36.0 [facility] Comment on above: Order Comment: Speci men Type: BLOOD SPECIMEN Ordering Facility: [facility] Address: [address] [place] [address] Performed By: #### B HB, #### [facility] CLIA [id number] [address] [place] [address] [place] MCV (RBC) [Entitic vol] 77.2 fL Low 80.0-100.0 [facility] Comment on above: Order Comment: Speci men Type: BLOOD SPECIMEN Ordering Facility: [facility] Address: [address] [place] [address] Performed By: #### B HB, #### [facility] CLIA [id number] [address] [place] [address] [place] Monocytes (Bld) [#/Vol] 0.71 10*3/uL Normal <0.87 [facility] Comment on above: Order Comment: Speci men Type: BLOOD SPECIMEN Ordering Facility: [facility] Address: [address] [place] [address] Performed By: #### B HB, #### [facility] CLIA [id number] [address] [place] [address] [place] Monocytes/100 WBC (Bld) 8.0 % Normal [facility] Comment on above: Order Comment: Speci men Type: BLOOD SPECIMEN Ordering Facility: [facility] Address: [address] [place] [address] Performed By: #### B HB, #### [facility] CLIA [id number] [address] [place] [address] [place] Neutrophils (Bld) [#/Vol] 6.39 10*3/uL Normal 1.45-7.50 [facility] Comment on above: Order Comment: Speci men Type: BLOOD SPECIMEN Ordering Facility: [facility] Address: [address] [place] [address] Performed By: #### B HB, #### [facility] CLIA [id number] [address] [place] [address] [place] Neutrophils/100 WBC (Bld) 72.1 % Normal [facility] Comment on above: Order Comment: Speci men Type: BLOOD SPECIMEN Ordering Facility: [facility] Address: [address] [place] [address] Performed By: #### B HB, #### [facility] CLIA [id number] [address] [place] [address] [place] Nucleated RBC (Bld) [#/Vol] 10*3/uL Normal <0.01 [facility] Comment on above: Order Comment: Speci men Type: BLOOD SPECIMEN Ordering Facility: [facility] Address: [address] [place] [address] Performed By: #### B HB, #### [facility] CLIA [id number] [address] [place] [address] [place] Nucleated RBC/100 WBC (Bld) [Ratio] 0.0 /100 WBC Normal [facility] Comment on above: Order Comment: Speci men Type: BLOOD SPECIMEN Ordering Facility: [facility] Address: [address] [place] [address] Performed By: #### B HB, #### [facility] CLIA [id number] [address] [place] [address] [place] Platelet mean volume (Bld) [Entitic vol] 11.3 fL Normal 9.0-12.7 [facility] Comment on above: Order Comment: Speci men Type: BLOOD SPECIMEN Ordering Facility: [facility] Address: [address] [place] [address] Performed By: #### B HB, #### [facility] CLIA [id number] [address] [place] [address] [place] Platelets (Bld) [#/Vol] 316 10*3/uL Normal 150-400 [facility] Comment on above: Order Comment: Speci men Type: BLOOD SPECIMEN Ordering Facility: [facility] Address: [address] [place] [address] Performed By: #### B HB, #### [facility] CLIA [id number] [address] [place] [address] [place] RBC (Bld) [#/Vol] 4.08 10*6/uL Normal 3.90-5.20 [facility] Comment on above: Order Comment: Speci men Type: BLOOD SPECIMEN Ordering Facility: [facility] Address: [address] [place] [address] Performed By: #### B HB, #### [facility] CLIA [id number] [address] [place] [address] [place] WBC (Bld) [#/Vol] 8.87 10*3/uL Normal 3.70-11.00 [facility] Comment on above: Order Comment: Speci men Type: BLOOD SPECIMEN Ordering Facility: [facility] Address: [address] [place] [address] Performed By: #### B HB, 46186-5 #### [facility] CLIA [id number] [address] [place] [address] [place] Comprehensive metabolic 2000 panelon 08-31-2023 Albumin [Mass/Vol] 3.7 g/dL Low 3.9-4.9 [facility] Comment on above: Order Comment: Speci men Type: BLOOD SPECIMEN Ordering Facility: [facility] Address: [address] [place] [address] Performed By: #### B HB, 26419-0 #### [facility] CLIA [id number] [address] [place] [address] [place] ALP [Catalytic activity/Vol] 99 U/L Normal 34-123 [facility] Comment on above: Order Comment: Speci men Type: BLOOD SPECIMEN Ordering Facility: [facility] Address: [address] [place] [address] Performed By: #### B HB, 10662-0 #### [facility] CLIA [id number] [address] [place] [address] [place] ALT [Catalytic activity/Vol] U/L Low 7-38 [facility] Comment on above: Order Comment: Speci men Type: BLOOD SPECIMEN Ordering Facility: [facility] Address: [address] [place] [address] Performed By: #### B HB, 31914-3 #### [facility] CLIA [id number] [address] [place] [address] [place] Anion gap [Moles/Vol] 12 mmol/L Normal 9-18 [facility] Comment on above: Order Comment: Speci men Type: BLOOD SPECIMEN Ordering Facility: [facility] Address: [address] [place] [address] Performed By: #### B HB, 44244-6 #### [facility] CLIA [id number] [place] [address] [place] AST [Catalytic activity/Vol] 7 U/L Low 13-35 [facility] Comment on above: Order Comment: Speci men Type: BLOOD SPECIMEN Ordering Facility: [facility] Address: [address] [place] [address] Performed By: #### B HB, #### [facility] CLIA [id number] [address] [place] [address] [place] Bilirubin [Mass/Vol] 0.3 mg/dL Normal 0.2-1.3 [facility] Comment on above: Order Comment: Speci men Type: BLOOD SPECIMEN Ordering Facility: [facility] Address: [address] [place] [address] Performed By: #### B HB, #### [facility] CLIA [id number] [address] [place] [address] [place] Calcium [Mass/Vol] 8.7 mg/dL Normal 8.5-10.2 [facility] Comment on above: Order Comment: Speci men Type: BLOOD SPECIMEN Ordering Facility: [facility] Address: [address] [place] [address] Performed By: #### B HB, #### [facility] CLIA [id number] [address] [place] [address] [place] Chloride [Moles/Vol] 99 mmol/L Normal 97-105 [facility] Comment on above: Order Comment: Speci men Type: BLOOD SPECIMEN Ordering Facility: [facility] Address: [address] [place] [address] Performed By: #### B HB, #### [facility] CLIA [id number] [address] [place] [address] [place] CO2 [Moles/Vol] 19 mmol/L Low 22-30 [facility] Comment on above: Order Comment: Speci men Type: BLOOD SPECIMEN Ordering Facility: [facility] Address: [address] [place] [address] Performed By: #### B HB, #### [facility] CLIA [id number] [address] [place] [address] [place] Creatinine [Mass/Vol] 2.15 mg/dL High 0.58-0.96 [facility] Comment on above: Order Comment: Speci men Type: BLOOD SPECIMEN Ordering Facility: [facility] Address: [address] [place] [address] Performed By: #### B HB, 71780-8 #### [facility] CLIA [id number] [address] [place] [address] [place] Creatinine and Glomerular filtration rate.predicted panel (S/P/Bld) 25 mL/min/1.73m??? Low >=60 [facility] Comment on above: Order Comment: [place] Type: BLOOD SPECIMEN Ordering Facility: [facility] Address: [address] [place] [address] Result Comment: Donna mated Glomerular Filtration Rate [...] actual GFR. Performed By: #### B HB, 41699-7 #### [facility] CLIA [id number] [address] [place] [address] [place] Glucose [Mass/Vol] 428 mg/dL High 74-99 [facility] Comment on above: Order Comment: [place] Type: BLOOD SPECIMEN Ordering Facility: [facility] Address: [address] [place] [address] Result Comment: The [place] Diabetes Association (ADA) provides guidance for cutoff [...] Standards of Medical Care in Diabetes 2016, [place] Diabetes Association. Diabetes Care. 2016.39(Suppl 1). Performed By: #### B HB, 68574-1 #### [facility] CLIA [id number] [place] [address] [place] Potassium [Moles/Vol] 5.2 mmol/L High 3.7-5.1 [facility] Comment on above: Order Comment: Speci men Type: BLOOD SPECIMEN Ordering Facility: [facility] Address: [address] [place] [address] Performed By: #### B HB, 19124-6 #### [facility] CLIA [id number] [address] [place] [address] [place] Protein [Mass/Vol] 9.1 g/dL High 6.3-8.0 [facility] Comment on above: Order Comment: Speci men Type: BLOOD SPECIMEN Ordering Facility: [facility] Address: [address] [place] [address] Performed By: #### Kimberlyn HB, #### [facility] CLIA [id number] [address] [place] [address] [place] Sodium [Moles/Vol] 130 mmol/L Low 136-144 [facility] Comment on above: Order Comment: Speci men Type: BLOOD SPECIMEN Ordering Facility: [facility] Address: [address] [place] [address] Performed By: #### Kimberlyn HB, #### [facility] CLIA [id number] [address] [place] [address] [place] Urea nitrogen [Mass/Vol] 39 mg/dL High 7-21 [facility] Comment on above: Order Comment: Speci men Type: BLOOD SPECIMEN Ordering Facility: [facility] Address: [address] [place] [address] Performed By: #### B HB, #### [facility] CLIA [id number] [address] [place] [address] [place] ECG COMPLETEon 08-31-2023 ECG COMPLETE Ventricular Rate : 7 1 BPM Atrial Rate : 71 BPM P-R Interval : 166 ms QRS Duration : 80 ms Q-T Interval : 396 ms QTC Calculation(Bazett) : 431 ms Calculated P [place] : 82 degrees Calculated R [place] : 71 degrees Calculated T [place] : 48 degrees Sinus rhythm Normal ECG NO STEMI. 0752 Confirmed by MD DE LEON MICHAEL ([id number]), design editor THERESA SEAY ([id number]) on 08/31/2023 1:24:15 PM NAME : AISLINN WHEELER PID : [id number] : 1960 Gender : Female Race : ORD : [id number] Procedure Date : Aug 31 2023 07:16:42 Edit Date : Aug 31 2023 13:24:16 Diagnosis: Sinus rhythm Normal ECG NO STEMI. 0752 Confirmed by MD DE LEON MICHAEL ([id number]), design editor THERESA SEAY ([id number]) on 08/31/2023 1:24:15 PM Test Reason : Chest Pain Location : 402 : FVED fved05 Overread By : MD DE LEON MICHAEL Edited By : THERESA SEAY Referred By : , Acquired by : [id number], [facility] ECG COMPLETE Ventricular Rate : 8 8 BPM Atrial Rate : 88 BPM P-R Interval : 153 ms QRS Duration : 78 ms Q-T Interval : 370 ms QTC Calculation(Bazett) : 448 ms Calculated P [place] : 85 degrees Calculated R [place] : 69 degrees Calculated T [place] : 62 degrees Sinus rhythm Normal ECG NO STEMI. 0604 Confirmed by KASIE SANDOVAL MD ([id number]), design editor THERESA SEAY ([id number]) on 08/31/2023 1:02:55 PM NAME : AISLINN WHEELER PID : [id number] : 1960 Gender : Female Race : ORD : [id number] Procedure Date : Aug 31 2023 04:17:52 Edit Date : Aug 31 2023 13:02:57 Diagnosis: Sinus rhythm Normal ECG NO STEMI. 0604 Confirmed by KASIE SANDOVAL MD ([id number]), design editor THERESA SEAY ([id number]) on 08/31/2023 1:02:55 PM Test Reason : Arrhythmia Location : 402 : FVED fved05 Overread By : KASIE SANDOVAL MD Edited By : THERESA SEAY Referred By : , Acquired by : [id number], [facility] ED PROV NOTEon 08-31-2023 ED PROV NOTE HNO ID: [id number] Author: RAYNA RHODES PA-C Service: Emergency Medicine Author Type: Physician Court Worker Type: ED Provider Notes Filed: 08/31/2023 08:06 [...] left foot. Pt states she saw her buckle gluer and was directed to come to the [...] rarely occurring (more content not included)... Normal [facility] FLUABV+SARS-CoV-2+RSV Pnl Re sp ADRIEL+probeon 08-31-2023 FLUABV+SARS-CoV-2+RS V Pnl Resp ADRIEL+probe COVID 19 RESULT: Not detected The method used is RT-PCR or an equivalent NAAT method. Reference Range(the expected result in uninfected individuals): Not detected INFLUENZA A PCR: Not detected INFLUENZA B PCR: Not detected RSV PCR: Not detected Normal [facility] Comment on above: Performed By: #### 9 5941-1 ####[facility] [id number] [place] [address] [place] Gas and Carbon monoxide pane l (BldV)on 08-31-2023 BASE DEFICIT, VENOUS -5 mmol/L Low -2-0 [facility] Comment on above: Order Comment: Speci men Type: VENOUS BLOOD SPECIMEN Ordering Facility: [facility] Address: [address] [place] [address] Performed By: #### 2 4344-4 #### [facility] CLIA [id number] [place] [address] [place] Body temperature 100.04 [degF] Normal [facility] Comment on above: Order Comment: Speci men Type: VENOUS BLOOD SPECIMEN Ordering Facility: [facility] Address: [address] [place] [address] Performed By: #### 2 4344-4 #### [facility] CLIA [id number] [place] [address] [place] Calcium.ionized (Bld) [Mass/Vol] 1.08 mmol/L Normal 1.08-1.30 [facility] Comment on above: Order Comment: Speci men Type: VENOUS BLOOD SPECIMEN Ordering Facility: [facility] Address: [address] [place] [address] Performed By: #### 2 4344-4 #### [facility] CLIA [id number] [address] [place] [address] [place] Calcium.ionized adjusted to pH 7.4 (BldA) [Moles/Vol] 1.06 mmol/L Low 1.08-1.30 [facility] Comment on above: Order Comment: Speci men Type: VENOUS BLOOD SPECIMEN Ordering Facility: [facility] Address: [address] [place] [address] Performed By: #### 2 4344-4 #### [facility] CLIA [id number] [address] [place] [address] [place] Carboxyhemoglobin (BldV) [Mass fraction] 3.8 % High 0.0-2.0 [facility] Comment on above: Order Comment: Speci men Type: VENOUS BLOOD SPECIMEN Ordering Facility: [facility] Address: [address] [place] [address] Result Comment: Carb oxyhemoglobin Reference Range for Smokers: 2.0-8.0% Performed By: #### 2 4344-4 #### [facility] CLIA [id number] [address] [place] [address] [place] Chloride [Moles/Vol] 106 mmol/L High 97-105 [facility] Comment on above: Order Comment: Speci men Type: VENOUS BLOOD SPECIMEN Ordering Facility: [facility] Address: [address] [place] [address] Performed By: #### 2 4344-4 #### [facility] CLIA [id number] [address] [place] [address] [place] CO2 (BldV) [Partial pressure] 35 mm[Hg] Low 42-55 [facility] Comment on above: Order Comment: Speci men Type: VENOUS BLOOD SPECIMEN Ordering Facility: [facility] Address: [address] [place] [address] Performed By: #### 2 4344-4 #### [facility] CLIA [id number] [address] [place] [address] [place] CO2 adjusted to patient's actual temperature (BldV) [Partial pressure] Normal [facility] Comment on above: Order Comment: Speci men Type: VENOUS BLOOD SPECIMEN Ordering Facility: [facility] Address: [address] [place] [address] Performed By: #### 2 4344-4 #### [facility] CLIA [id number] [address] [place] [address] [place] Glucose [Mass/Vol] 460 mg/dL High 60-105 [facility] Comment on above: Order Comment: Speci men Type: VENOUS BLOOD SPECIMEN Ordering Facility: [facility] Address: [address] [place] [address] Performed By: #### 2 4344-4 #### [facility] CLIA [id number] [address] [place] [address] [place] HCO3 (Bld) [Moles/Vol] 19 mmol/L Low 24-28 [facility] Comment on above: Order Comment: Speci men Type: VENOUS BLOOD SPECIMEN Ordering Facility: [facility] Address: [address] [place] [address] Performed By: #### 2 4344-4 #### [facility] CLIA [id number] [address] [place] [address] [place] Hematocrit (Bld) [Volume fraction] 29.7 % Low 36.0-46.0 [facility] Comment on above: Order Comment: Speci men Type: VENOUS BLOOD SPECIMEN Ordering Facility: [facility] Address: [address] [place] [address] Performed By: #### 2 4344-4 #### [facility] CLIA [id number] [address] [place] [address] [place] Hemoglobin (Bld) [Mass/Vol] 9.6 g/dL Low 11.5-15.5 [facility] Comment on above: Order Comment: Speci men Type: VENOUS BLOOD SPECIMEN Ordering Facility: [facility] Address: [address] [place] [address] Performed By: #### 2 4344-4 #### [facility] CLIA [id number] [address] [place] [address] [place] Lactate [Moles/Vol] 1.1 mmol/L Normal 0.5-2.2 [facility] Comment on above: Order Comment: Speci men Type: VENOUS BLOOD SPECIMEN Ordering Facility: [facility] Address: [address] [place] [address] Performed By: #### 2 4344-4 #### [facility] CLIA [id number] [address] [place] [address] [place] Methemoglobin (Bld) [Mass fraction] 1.1 % Normal 0.0-1.5 [facility] Comment on above: Order Comment: Speci men Type: VENOUS BLOOD SPECIMEN Ordering Facility: [facility] Address: [address] [place] [address] Performed By: #### 2 4344-4 #### [facility] CLIA [id number] [address] [place] [address] O2 THERAPY RA=Room Air [facility] Comment on above: Order Comment: Speci men Type: VENOUS BLOOD SPECIMEN Ordering Facility: [facility] Address: [address] [place] [address] Performed By: #### 2 4344-4 #### [facility] CLIA [id number] [address] [place] [address] [place] Oxygen (BldV) [Partial pressure] 118 mm[Hg] High 35-45 [facility] Comment on above: Order Comment: Speci men Type: VENOUS BLOOD SPECIMEN Ordering Facility: [facility] Address: [address] [place] [address] Performed By: #### 2 4344-4 #### [facility] CLIA [id number] [address] [place] [address] [place] Oxygen adjusted to patient's actual temperature (BldV) [Partial pressure] [facility] Comment on above: Order Comment: Speci men Type: VENOUS BLOOD SPECIMEN Ordering Facility: [facility] Address: [address] [place] [address] Performed By: #### 2 4344-4 #### [facility] CLIA [id number] [address] [place] [address] [place] Oxygen saturation in Venous blood 99 % High 60-85 [facility] Comment on above: Order Comment: Speci men Type: VENOUS BLOOD SPECIMEN Ordering Facility: [facility] Address: [address] [place] [address] Performed By: #### 2 4344-4 #### [facility] CLIA [id number] [address] [place] [address] [place] Oxyhemoglobin (BldV) [Mass fraction] 94 % High 60-85 [facility] Comment on above: Order Comment: Speci men Type: VENOUS BLOOD SPECIMEN Ordering Facility: [facility] Address: [address] [place] [address] Performed By: #### 2 4344-4 #### [facility] CLIA [id number] [address] [place] [address] [place] pH (BldV) 7.37 [pH] Normal 7.32-7.42 [facility] Comment on above: Order Comment: Speci men Type: VENOUS BLOOD SPECIMEN Ordering Facility: [facility] Address: [address] [place] [address] Performed By: #### 2 4344-4 #### [facility] CLIA [id number] [address] [place] [address] [place] pH adjusted to patient's actual temperature (BldV) Normal [facility] Comment on above: Order Comment: Speci men Type: VENOUS BLOOD SPECIMEN Ordering Facility: [facility] Address: [address] [place] [address] Performed By: #### 2 4344-4 #### [facility] CLIA [id number] [address] [place] [address] [place] Potassium [Moles/Vol] 5.3 mmol/L High 3.5-5.0 [facility] Comment on above: Order Comment: Speci men Type: VENOUS BLOOD SPECIMEN Ordering Facility: [facility] Address: [address] [place] [address] Performed By: #### 2 4344-4 #### [facility] CLIA [id number] [address] [place] [address] [place] Sodium [Moles/Vol] 133 mmol/L Low 136-144 [facility] Comment on above: Order Comment: Speci men Type: VENOUS BLOOD SPECIMEN Ordering Facility: [facility] Address: [place] [address] Performed By: #### 2 4344-4 #### [facility] CLIA [id number] [address] [place] [address] [place] HISTORY PHYSICALon HISTORY PHYSICAL HNO ID: [id number] Author: ANTHONY BARROW MD Service: Hospital Medicine [...] left foot ulcer that patient was seen buckle gluer as outpatient for and advised her to [...] nts 08/31/23 1115 activity - mobilize patient (ut,oh) VTE Prophylaxis: VTE prophylaxis appropriate SIGNATURE: Anthony Barrow MD PATIENT NAME: Aislinn Wheeler DATE: August 31, 2023 TIME: 11:03 AM PAGER/CONTACT #: Normal [facility] KETONES/ACETONE/BHBon 2023 Beta hydroxybutyrate [Moles/Vol] 0.50 mmol/L High <0.28 [facility] Comment on above: Order Comment: Speci men Type: BLOOD SPECIMEN Ordering Facility: [facility] Address: [address] [place] [address] Performed By: #### B [place], 29575-9 #### [facility] CLIA [id number] [address] [place] [address] [place] POTASSIUM BLDon 08-31-2023 Potassium [Moles/Vol] 4.6 mmol/L Normal 3.7-5.1 [facility] Comment on above: Order Comment: Speci men Type: BLOOD SPECIMEN Ordering Facility: [facility] Address: [address] [place] [address] Performed By: #### [place], 49835-9 #### [facility] CLIA [id number] [address] [place] [address] [place] SEPSIS LACTATEon 08-31-2023 Lactate [Moles/Vol] 1.2 mmol/L Normal 0.0-2.0 [facility] Comment on above: Order Comment: Speci men Type: BLOOD SPECIMEN Ordering Facility: [facility] Address: [address] [place] [address] Performed By: #### B [place], 43747-7 #### [facility] CLIA [id number] [address] [place] [address] [place] Urinalysis complete panel (U )on 08-31-2023 Bacteria LM.HPF (Urine sed) [#/Area] Many Abnormal None Seen [facility] Comment on above: Order Comment: Speci men Type: BLOOD SPECIMEN Ordering Facility: [facility] Address: [address] [place] [address] Performed By: #### B HB, #### [facility] CLIA [id number] [address] [place] [address] [place] Bilirubin Ql (U) Negative Normal Negative [facility] Comment on above: Order Comment: Speci men Type: BLOOD SPECIMEN Ordering Facility: [facility] Address: [address] [place] [address] Performed By: #### B HB, #### [facility] CLIA [id number] [address] [place] [address] [place] Clarity (Unsp spec) Turbid Abnormal Clear [facility] Comment on above: Order Comment: Speci men Type: BLOOD SPECIMEN Ordering Facility: [facility] Address: [address] [place] [address] Performed By: #### B HB, #### [facility] CLIA [id number] [address] [place] [address] [place] Color (U) Light Yellow Normal Yellow [facility] Comment on above: Order Comment: Speci men Type: BLOOD SPECIMEN Ordering Facility: [facility] Address: [address] [place] [address] Performed By: #### B HB, #### [facility] CLIA [id number] [address] [place] [address] [place] Glucose Test strip (U) [Mass/Vol] 4+ Abnormal Trace, Negative [facility] Comment on above: Order Comment: Speci men Type: BLOOD SPECIMEN Ordering Facility: [facility] Address: [address] [place] [address] Performed By: #### B HB, #### [facility] CLIA [id number] [address] [place] [address] [place] Hemoglobin Ql (U) Trace Normal Negative, Trace [facility] Comment on above: Order Comment: Speci men Type: BLOOD SPECIMEN Ordering Facility: [facility] Address: [address] [place] [address] Performed By: #### B HB, #### [facility] CLIA [id number] [address] [place] [address] [place] Ketones Ql (U) Negative Normal Negative, Trace [facility] Comment on above: Order Comment: Speci men Type: BLOOD SPECIMEN Ordering Facility: [facility] Address: [address] [place] [address] Performed By: #### B HB, #### [facility] CLIA [id number] [address] [place] [address] [place] Leukocyte esterase Test strip Ql (U) 500 Liam/uL Abnormal Negative, 25 Liam/uL [facility] Comment on above: Order Comment: Speci men Type: BLOOD SPECIMEN Ordering Facility: [facility] Address: [address] [place] [address] Performed By: #### B HB, #### [facility] CLIA [id number] [address] [place] [address] [place] Nitrite Ql (U) Negative Normal Negative [facility] Comment on above: Order Comment: Speci men Type: BLOOD SPECIMEN Ordering Facility: [facility] Address: [address] [place] [address] Performed By: #### B HB, #### [facility] CLIA [id number] [address] [place] [address] [place] pH (U) 6.0 [pH] Normal 5.0-8.0 [facility] Comment on above: Order Comment: Speci men Type: BLOOD SPECIMEN Ordering Facility: [facility] Address: [address] [place] [address] Performed By: #### B HB, #### [facility] CLIA [id number] [address] [place] [address] [place] Protein (U) [Mass/Vol] 1+ Abnormal Trace, Negative [facility] Comment on above: Order Comment: Speci men Type: BLOOD SPECIMEN Ordering Facility: [facility] Address: [address] [place] [address] Performed By: #### B HB, #### [facility] CLIA [id number] [address] [place] [address] [place] RBC LM.HPF (Urine sed) [#/Area] 3-5 /HPF Abnormal 0-3 /HPF [facility] Comment on above: Order Comment: Speci men Type: BLOOD SPECIMEN Ordering Facility: [facility] Address: [address] [place] [address] Performed By: #### B HB, #### [facility] CLIA [id number] [address] [place] [address] [place] Specific gravity (U) [Rel density] 1.017 Normal 1.005-1.030 [facility] Comment on above: Order Comment: Speci men Type: BLOOD SPECIMEN Ordering Facility: [facility] Address: [address] [place] [address] Performed By: #### B HB, #### [facility] CLIA [id number] [address] [place] [address] [place] Urobilinogen Ql (U) Negative Normal Negative [facility] Comment on above: Order Comment: Speci men Type: BLOOD SPECIMEN Ordering Facility: [facility] Address: [address] [place] [address] Performed By: #### B HB, #### [facility] CLIA [id number] [address] [place] [address] [place] WBC LM.HPF (Urine sed) [#/Area] /[HPF] Abnormal 0-5 /HPF [facility] Comment on above: Order Comment: Speci men Type: BLOOD SPECIMEN Ordering Facility: [facility] Address: [address] [place] [address] Performed By: #### B HB, #### [facility] CLIA [id number] [address] [place] [address] [place] XR CHEST 1V FRONTAL [...] Fatigue and malaise, Fatigue and malaise (accession [id number]), Osteomyelitis (accession [id number]) MQ: XC1_5 Comparison: CT 01/17/2021, radiograph 01/17/2021 [...] performed for increased sensitivity, as clinically warranted. [employer] Head: GUILLE Transcribe Date/Time: Aug 31 2023 4:46A Dictated by : TAURUS MORTON MD This examination was interpreted and the report reviewed and electronically signed by: TAURUS MORTON MD on Aug 31 2023 4:51AM EST [id number] Normal [facility] XR FOOT 3V AP/LAT/OBL LTon [...] Fatigue and malaise, Fatigue and malaise (accession [id number]), Osteomyelitis (accession [id number]) MQ: XC1_5 Comparison: CT 01/17/2021, radiograph 01/17/2021 [...] performed for increased sensitivity, as clinically warranted. [employer] Head: PSCKimberlyn Transcribe Date/Time: Aug 31 2023 4:46A Dictated by : TAURUS MORTON MD This examination was interpreted and the report reviewed and electronically signed by: TAURUS MORTON MD on Aug 31 2023 4:51AM EST [id number] Normal [facility] Benzodiazepines Screen Ql (U )on 08-09-2023 Benzodiazepines Ql (U) Negative Normal NEG [facility] Comment on above: Result Comment: Lenny odiazepines screening cut off value = 200 ng/mL This report is intended for use in clinical monitoring or management of patients. Performed By: #### 1 4316-4 #### [facility] ([id number]) [address] [place] [address] [place] [address] CCL GENERIC ORDERon 08-09-20 23 TEST NAME UQNTPP URINE PAIN PA VEGA QUANT Normal [facility] Comment on above: Result Comment: Wesley ected on 08/09 AT 1743: Previously reported as UQNTPP Performed By: #### C GO #### [facility] ([id number]) [address] [place] [address], [place] [address] TEST RESULT See Below Normal [facility] Comment on above: Result Comment: NOTE TEST RESULT FLAG UNIT REF.RANGE ----- Specimen Validity Quality See below Specimen quality results within acceptable limits Specimen Validity Creatinine 31.8 mg/dL 20.0-300.0 Specimen Validity PH 5.4 4.5-8.0 Specimen Validity Specific [place] 1.006 1.003-1.035 Specimen Validity Oxidants <38 mg/L [...] carboxylic acid (THCA) is a metabolite of ynqfh-1-tztbkobnrkzshmsfteir which is the main active component of marijuana. Fentanyl, Urine <6 ng/mL <6 Buprenorphine, Ur <20 ng/mL <20 Methadone Urine <16 ng/mL <16 Methadone metabolite Urine <6 ng/mL <6 EDDP is a metabolite of methadone. Note See Below This test is for medical use only. This test was developed and its performance characteristics determined by [facility] [place] [facility] It has not been cleared or approved by the FDA. [facility] is regulated under CLIA as qualified to perform high-complexity testing. This test is used for clinical purposes. It should not be regarded as investigational or for research. URINE PAIN PANEL QUANT Test Performed By: [facility] [address] [place] [address] Manager Of Creative Services: Oswald Munguia III, M.D. CLIA #[id number] Performed By: #### C GO #### [facility] ([id number]) [address] [place] [address], [place] [address] Operative Reporton Operative Report [id number]#1.00T IFF Normal [facility] Pathology Noteon 08-07-2023 Pathology Note [id number]#1.00 TIFF Normal [facility] ED Note-Physicianon 06-29-20 ED Note-Physician [id number]#1.00T IFF Normal [facility] Patient Letter FTMCon 2022 Patient Letter FT (Inserted Image. Grecia ble to display) June 28, 2023 AISLINN WHEELER [address] [place] [id number] : 1960 Dear Aislinn, You missed your [...] regarding any future cancellations. Sincerely, [facility] [address] [place] [address], [place] [address] Pt called and RS'd. Normal [facility] Basic metabolic 2000 panelon 06-23-2023 Anion gap [Moles/Vol] 9 mmol/L Normal 9-18 [facility] Comment on above: Order Comment: Speci men Type: BLOOD SPECIMEN Ordering Facility: [facility] Address: [address] [place] [address] Performed By: #### B HB, #### [facility] CLIA [id number] [address] [place] [address] [place] Calcium [Mass/Vol] 7.3 mg/dL Low 8.5-10.2 [facility] Comment on above: Order Comment: Speci men Type: BLOOD SPECIMEN Ordering Facility: [facility] Address: [address] [place] [address] Performed By: #### B HB, #### [facility] CLIA [id number] [address] [place] [address] [place] Chloride [Moles/Vol] 110 mmol/L High 97-105 [facility] Comment on above: Order Comment: Speci men Type: BLOOD SPECIMEN Ordering Facility: [facility] Address: [address] [place] [address] Performed By: #### B HB, #### [facility] CLIA [id number] [address] [place] [address] [place] CO2 [Moles/Vol] 19 mmol/L Low 22-30 [facility] Comment on above: Order Comment: Speci men Type: BLOOD SPECIMEN Ordering Facility: [facility] Address: [address] [place] [address] Performed By: #### B HB, #### [facility] CLIA [id number] [address] [place] [address] [place] Creatinine [Mass/Vol] 1.39 mg/dL High 0.58-0.96 [facility] Comment on above: Order Comment: Speci men Type: BLOOD SPECIMEN Ordering Facility: [facility] Address: [address] [place] [address] Performed By: #### B HB, #### [facility] CLIA [id number] [address] [place] [address] [place] Creatinine and Glomerular filtration rate.predicted panel (S/P/Bld) 42 mL/min/1.73m??? Low >=60 [facility] Comment on above: Order Comment: Speci men Type: BLOOD SPECIMEN Ordering Facility: [facility] Address: [address] [place] [address] Result Comment: Donna mated Glomerular Filtration Rate [...] GFR. Performed By: #### B HB, #### [facility] CLIA [id number] [address] [place] [address] [place] Glucose [Mass/Vol] 157 mg/dL High 74-99 [facility] Comment on above: Order Comment: [place] Type: BLOOD SPECIMEN Ordering Facility: [facility] Address: [address] [place] [address] Result Comment: The [place] Diabetes Association (ADA) provides guidance for cutoff [...] Standards of Medical Care in Diabetes 2016, [place] Diabetes Association. Diabetes Care. 2016.39(Suppl 1). Performed By: #### B HB, 04537-9 #### [facility] CLIA [id number] [address] [place] [address] [place] Potassium [Moles/Vol] 5.1 mmol/L Normal 3.7-5.1 [facility] Comment on above: Order Comment: [place] Type: BLOOD SPECIMEN Ordering Facility: [facility] Address: [address] [place] [address] Performed By: #### B HB, 42136-4 #### [facility] CLIA [id number] [address] [place] [address] [place] Sodium [Moles/Vol] 138 mmol/L Normal 136-144 [facility] Comment on above: Order Comment: [place] Type: BLOOD SPECIMEN Ordering Facility: [facility] Address: [address] [place] [address] Performed By: #### B HB, 96896-9 #### [facility] CLIA [id number] [address] [place] [address] [place] Urea nitrogen [Mass/Vol] 21 mg/dL Normal 7-21 [facility] Comment on above: Order Comment: Speci men Type: BLOOD SPECIMEN Ordering Facility: [facility] Address: [address] [place] [address] Performed By: #### B HB, #### [facility] CLIA [id number] [address] [place] [address] [place] CBC panel Auto (Bld)on 06-23 Erythrocyte distribution width (RBC) [Ratio] 14.4 % Normal 11.5-15.0 [facility] Comment on above: Order Comment: Speci men Type: BLOOD SPECIMEN Ordering Facility: [facility] Address: [address] [place] [address] Performed By: #### B HB, #### [facility] CLIA [id number] [address] [place] [address] [place] Hematocrit (Bld) [Volume fraction] 28.5 % Low 36.0-46.0 [facility] Comment on above: Order Comment: Speci men Type: BLOOD SPECIMEN Ordering Facility: [facility] Address: [address] [place] [address] Performed By: #### B HB, #### [facility] CLIA [id number] [address] [place] [address] [place] Hemoglobin (Bld) [Mass/Vol] 9.0 g/dL Low 11.5-15.5 [facility] Comment on above: Order Comment: Speci men Type: BLOOD SPECIMEN Ordering Facility: [facility] Address: [address] [place] [address] Performed By: #### B HB, #### [facility] CLIA [id number] [address] [place] [address] [place] MCH (RBC) [Entitic mass] 25.2 pg Low 26.0-34.0 [facility] Comment on above: Order Comment: Speci men Type: BLOOD SPECIMEN Ordering Facility: [facility] Address: [address] [place] [address] Performed By: #### B HB, #### [facility] CLIA [id number] [address] [place] [address] [place] MCHC (RBC) [Mass/Vol] 31.6 g/dL Normal 30.5-36.0 [facility] Comment on above: Order Comment: Speci men Type: BLOOD SPECIMEN Ordering Facility: [facility] Address: [address] [place] [address] Performed By: #### B HB, #### [facility] CLIA [id number] [address] [place] [address] [place] MCV (RBC) [Entitic vol] 79.8 fL Low 80.0-100.0 [facility] Comment on above: Order Comment: Speci men Type: BLOOD SPECIMEN Ordering Facility: [facility] Address: [address] [place] [address] Performed By: #### B HB, #### [facility] CLIA [id number] [address] [place] [address] [place] Nucleated RBC (Bld) [#/Vol] 10*3/uL Normal <0.01 [facility] Comment on above: Order Comment: Speci men Type: BLOOD SPECIMEN Ordering Facility: [facility] Address: [address] [place] [address] Performed By: #### B HB, #### [facility] CLIA [id number] [address] [place] [address] [place] Platelet mean volume (Bld) [Entitic vol] 10.6 fL Normal 9.0-12.7 [facility] Comment on above: Order Comment: Speci men Type: BLOOD SPECIMEN Ordering Facility: [facility] Address: [address] [place] [address] Performed By: #### B HB, #### [facility] CLIA [id number] [address] [place] [address] [place] Platelets (Bld) [#/Vol] 251 10*3/uL Normal 150-400 [facility] Comment on above: Order Comment: Speci men Type: BLOOD SPECIMEN Ordering Facility: [facility] Address: [address] [place] [address] Performed By: #### B HB, 91716-1 #### [facility] CLIA [id number] [address] [place] [address] [place] RBC (Bld) [#/Vol] 3.57 10*6/uL Low 3.90-5.20 [facility] Comment on above: Order Comment: Speci men Type: BLOOD SPECIMEN Ordering Facility: [facility] Address: [address] [place] [address] Performed By: #### B HB, 37187-4 #### [facility] CLIA [id number] [address] [place] [address] [place] WBC (Bld) [#/Vol] 7.47 10*3/uL Normal 3.70-11.00 [facility] Comment on above: Order Comment: Speci men Type: BLOOD SPECIMEN Ordering Facility: [facility] Address: [address] [place] [address] Performed By: #### B HB, 38121-6 #### [facility] CLIA [id number] OF [facility] CNDSon 06-23-2023 CNDS HNO ID: [id number] Author: Annie Martinez APRN.BEAD CUTTER Service: Urology Author Type: Nurse Practitioner Type: [...] this patient's care. Taurus Ballard MD The [address] [address] or ([phone]) [facility] [...] Your Medications These medications were sent to [facility] [address] [place] [address] Hours: Monday-Monday: 7am-7pm, Sat: 9am-1pm acetaminophen 325 mg tablet docusate sodium 100 mg capsule Future Appointments: No future appointments. Electronically SIGNED by Licensed Independent Practitioner: Annie Martinez APRN.[facility] 06-23-2023 [facility] AISLINN WHEELER ([id number]) 1960 F Date Time Provider Department 06/23/23 HEIDY GARCIA During your visit today, we recorded the following information about you: Heidy Garcia RN 06/23/2023 9:05 AM Signed Patient had left robotic partial nephrectomy by Dr. Ballard on 06/22/2023 Will call for surgical follow up once discharged Heidy Garcia RN 06/26/2023 10:45 AM Signed Patient phone number non functioning. Active in [employer], will send message inquiring on how she's feeling post-operatively. Vonnie Wilder RN 06/27/2023 10:15 AM Signed Spoke with grand daughter, Lola, as this office is unable to reach patient for post op call. Lola reports, that patient's phone is turned off, and she does not know how to use [employer] Lola reports that patient went to [place] [facility] due to excruciating pain -was given [...] Encounter Status:Closed by HEIDY GARCIA on 06/23/23 [facility] NURSING PROGon 06-23-2023 NURSING PROG HNO ID: [id number] Author: Sweta Cordova RN Service: ? Author [...] Annie Martinez, awaiting PRN order of hydralazine. [facility] ANES POSTPROC EVALon 023 ANES POSTPROC EVAL HNO ID: [id number] Author: Rikki Jhaveri MD Service: Anesthesiology Author Type: Anesthesiologist Type: Anesthesia Postprocedure Evaluation Filed: 06/22/2023 2:18 PM Note Text: POST ANESTHESIA EVALUATION NOTE : 1960 Procedure Summary Date: 06/22/23 Room / Location: [place] [id number] / OR Anesthesia Start: 1107 Anesthesia Stop: [...] June 22, 2023 TIME: 2:18 PM CSN: [id number] [facility] ANES PRE-OPon 06-22-2023 ANES PRE-OP HNO ID: [id number] Author: Rikki Jhaveri MD Service: Anesthesiology Author [...] June 22, 2023 TIME: 9:54 AM CSN: [id number] Normal [facility] Basic metabolic 2000 panelon 06-22-2023 Anion gap [Moles/Vol] 7 mmol/L Low 9-18 [facility] Comment on above: Order Comment: Speci men Type: BLOOD SPECIMEN Ordering Facility: [facility] Address: [address] [place] [address] Performed By: #### 2 4321-2 #### [facility] CLIA [id number] [address] [place] [address] [place] Calcium [Mass/Vol] 7.5 mg/dL Low 8.5-10.2 [facility] Comment on above: Order Comment: Speci men Type: BLOOD SPECIMEN Ordering Facility: [facility] Address: [address] [place] [address] Performed By: #### 2 4321-2 #### [facility] CLIA [id number] [address] [place] [address] [place] Chloride [Moles/Vol] 108 mmol/L High 97-105 [facility] Comment on above: Order Comment: Speci men Type: BLOOD SPECIMEN Ordering Facility: [facility] Address: [address] [place] [address] Performed By: #### 2 4321-2 #### [facility] CLIA [id number] [address] [place] [address] [place] CO2 [Moles/Vol] 19 mmol/L Low 22-30 [facility] Comment on above: Order Comment: Speci men Type: BLOOD SPECIMEN Ordering Facility: [facility] Address: [address] [place] [address] Performed By: #### 2 4321-2 #### [facility] CLIA [id number] [address] [place] [address] [place] Creatinine [Mass/Vol] 1.57 mg/dL High 0.58-0.96 [facility] Comment on above: Order Comment: Speci men Type: BLOOD SPECIMEN Ordering Facility: [facility] Address: [address] [place] [address] Performed By: #### 2 4321-2 #### [facility] CLIA [id number] [address] [place] [address] [place] Creatinine and Glomerular filtration rate.predicted panel (S/P/Bld) 36 mL/min/1.73m??? Low >=60 [facility] Comment on above: Order Comment: Speci men Type: BLOOD SPECIMEN Ordering Facility: [facility] Address: [address] [place] [address] Result Comment: Donna mated Glomerular Filtration Rate [...] GFR. Performed By: #### 2 4321-2 #### [facility] CLIA [id number] [place] [address] [place] Glucose [Mass/Vol] 275 mg/dL High 74-99 [facility] Comment on above: Order Comment: [place] Type: BLOOD SPECIMEN Ordering Facility: [facility] Address: [address] [place] [address] Result Comment: The [place] Diabetes Association (ADA) provides guidance for cutoff [...] Standards of Medical Care in Diabetes 2016, [place] Diabetes Association. Diabetes Care. 2016.39(Suppl 1). Performed By: #### 2 4321-2 #### [facility] CLIA [id number] [address] [place] [address] [place] Potassium [Moles/Vol] 5.3 mmol/L High 3.7-5.1 [facility] Comment on above: Order Comment: [place] Type: BLOOD SPECIMEN Ordering Facility: [facility] Address: [address] [place] [address] Performed By: #### 2 4321-2 #### [facility] CLIA [id number] [address] [place] [address] [place] Sodium [Moles/Vol] 134 mmol/L Low 136-144 [facility] Comment on above: Order Comment: [place] Type: BLOOD SPECIMEN Ordering Facility: [facility] Address: [address] [place] [address] Performed By: #### 2 4321-2 #### [facility] CLIA [id number] [place] [address] [place] Urea nitrogen [Mass/Vol] 26 mg/dL High 7-21 [facility] Comment on above: Order Comment: Speci men Type: BLOOD SPECIMEN Ordering Facility: [facility] Address: [address] [place] [address] Performed By: #### 2 4321-2 #### [facility] CLIA [id number] [address] [place] [address] [place] CBC panel Auto (Bld)on 06-22 Erythrocyte distribution width (RBC) [Ratio] 14.3 % Normal 11.5-15.0 [facility] Comment on above: Order Comment: Speci men Type: BLOOD SPECIMEN Ordering Facility: [facility] Address: [address] [place] [address] Performed By: #### 5 8410-2 #### [facility] CLIA [id number] [address] [place] [address] [place] Hematocrit (Bld) [Volume fraction] 27.8 % Low 36.0-46.0 [facility] Comment on above: Order Comment: Speci men Type: BLOOD SPECIMEN Ordering Facility: [facility] Address: [address] [place] [address] Performed By: #### 5 8410-2 #### [facility] CLIA [id number] [address] [place] [address] [place] Hemoglobin (Bld) [Mass/Vol] 8.9 g/dL Low 11.5-15.5 [facility] Comment on above: Order Comment: Speci men Type: BLOOD SPECIMEN Ordering Facility: [facility] Address: [address] [place] [address] Performed By: #### 5 8410-2 #### [facility] CLIA [id number] [address] [place] [address] [place] MCH (RBC) [Entitic mass] 25.3 pg Low 26.0-34.0 [facility] Comment on above: Order Comment: Speci men Type: BLOOD SPECIMEN Ordering Facility: [facility] Address: [address] [place] [address] Performed By: #### 5 8410-2 #### [facility] CLIA [id number] [address] [place] [address] [place] MCHC (RBC) [Mass/Vol] 32.0 g/dL Normal 30.5-36.0 [facility] Comment on above: Order Comment: Speci men Type: BLOOD SPECIMEN Ordering Facility: [facility] Address: [address] [place] [address] Performed By: #### 5 8410-2 #### [facility] CLIA [id number] [address] [place] [address] [place] MCV (RBC) [Entitic vol] 79.0 fL Low 80.0-100.0 [facility] Comment on above: Order Comment: Speci men Type: BLOOD SPECIMEN Ordering Facility: [facility] Address: [address] [place] [address] Performed By: #### 5 8410-2 #### [facility] CLIA [id number] [address] [place] [address] [place] Nucleated RBC (Bld) [#/Vol] 10*3/uL Normal <0.01 [facility] Comment on above: Order Comment: Speci men Type: BLOOD SPECIMEN Ordering Facility: [facility] Address: [address] [place] [address] Performed By: #### 5 8410-2 #### [facility] CLIA [id number] [address] [place] [address] [place] Platelet mean volume (Bld) [Entitic vol] 10.8 fL Normal 9.0-12.7 [facility] Comment on above: Order Comment: Speci men Type: BLOOD SPECIMEN Ordering Facility: [facility] Address: [address] [place] [address] Performed By: #### 5 8410-2 #### [facility] CLIA [id number] [address] [place] [address] [place] Platelets (Bld) [#/Vol] 230 10*3/uL Normal 150-400 [facility] Comment on above: Order Comment: Speci men Type: BLOOD SPECIMEN Ordering Facility: [facility] Address: [address] [place] [address] Performed By: #### 5 8410-2 #### [facility] CLIA [id number] [address] [place] [address] [place] RBC (Bld) [#/Vol] 3.52 10*6/uL Low 3.90-5.20 [facility] Comment on above: Order Comment: Speci men Type: BLOOD SPECIMEN Ordering Facility: [facility] Address: [address] [place] [address] Performed By: #### 5 8410-2 #### [facility] CLIA [id number] [address] [place] [address] [facility] [place] WBC (Bld) [#/Vol] 6.04 10*3/uL Normal 3.70-11.00 [facility] Comment on above: Order Comment: Speci men Type: BLOOD SPECIMEN Ordering Facility: [facility] Address: [address] [place] [address] Performed By: #### 5 8410-2 #### [facility] CLIA [id number] [address] [place] [address] NURSING PROGon 06-22-2023 NURSING PROG HNO ID: [id number] Author: Afia Lanier RN Service: Nursing Author Type: Registered Nurse Type: Nursing Progress Note Filed: 06/22/2023 5:56 PM Note Text: Transfer Note: PATIENT NAME: Aislinn Wheeler Patient Location: [place] [address] Room: [place] [address] Patient transferred into room/unit pk308 in stable condition. Actions taken: No futher actions taken at this time. Will continue to monitor and check with patient. Normal [facility] NURSING PROG HNO ID: [id number] Author: Linda Nicholson, REY Service: Nursing Author Type: Registered Nurse Type: Nursing Progress Note Filed: 06/22/2023 12:20 PM Note Text: pre-incision juan area noted to have redness and inflamed, prior to prepping and putting chaves in. Normal [facility] NURSING PROG HNO ID: [id number] Author: Elva Joy RN Service: Nursing Author [...] (RECOMMENDATION): None Electronically Signed By: Elva Joy [facility] OPERATIVE NOon 06-22-2023 OPERATIVE NO HNO ID: [id number] Author: Taurus Ballard MD Service: Urology Author Type: Physician Type: Operative Report Filed: 06/22/2023 1:48 PM Note Text: OPERATIVE/PROCEDURE REPORT LOG ID: [id number] Surgery/Procedure Date: 06/22/2023 Incision/Procedure Start Time: 11:49 AM Incision Close/Procedure End Time: 1:55 PM Surgeon(s)/Proceduralis t(s) and Court Worker(s): Surgeon(s) and Role: * Taurus Ballard MD - Primary * Jeet De La Fuente MD - Resident - Assisting Physician Court Worker: Camden Rios PA-C; Alicia Harmon PA-C Procedure(s): [...] superior to the umbilicus a 12 mm print shop assistant port was placed. At this point [...] a specimen bag out of the supraumbilical print shop assistant port. This port was closed with [...] None Drains: 10 flat JUAN drain, 16 Chadian Chaves catheter Complications: None Accidental Punctures/Lacerations: None I/primary surgeon/proceduralist performed the procedure with assistance. SIGNATURE: Taurus Ballard MD PATIENT NAME: Aislinn Wheeler DATE: June 22, 2023 TIME: 1:42 PM PAGER/CONTACT #: [facility] SURGICAL PATHOLOGYon 023 CASE REPORT [facility] Comment on above: Order Comment: Speci men Type: BLOOD SPECIMEN Ordering Facility: [facility] Address: [address] [place] [address] Result Comment: Surg ical Pathology Report Case: [id number] Authorizing Provider: Taurus Ballard MD Collected: 06/22/2023 01:38 PM Ordering Location: [facility] Received: 06/22/2023 03:16 PM Operating Room Pathologist: Barron Cheema MD Specimen: KIDNEY PARTIAL NEPHRECTOMY LEFT, left renal neoplasm Performed By: #### Kimberlyn FISCHER, 57360-8 #### [facility] CLIA [id number] [address] [place] [address] CLINICAL HISTORY [facility] Comment on above: Order Comment: Speci men Type: BLOOD SPECIMEN Ordering Facility: [facility] Address: [address] [place] [address] Result Comment: Pre- op diagnosis: 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 - 7.2 cm gross greatest dimension of tissue specimen (defer to clinical/imaging for overall lesion size). Performed By: #### [place], [address]-1 #### [facility] CLIA [id number] [address] [place] [address] FINAL PERFORMING LAB [facility] Comment on above: Order Comment: Speci men Type: BLOOD SPECIMEN Ordering Facility: [facility] Address: [address] [place] [address] Result Comment: Diag nostic interpretation performed at [facility], [address] [place] [address] CLIA# [id number] Manager Of Creative Services: Oswald Munguia M.D. Performed By: #### [place], [address]-5 #### [facility] CLIA [id number] [address] [place] [address] GROSS DESCRIPTION Normal [facility] Comment on above: Order Comment: Speci men Type: BLOOD SPECIMEN Ordering Facility: [facility] Address: [address] [place] [address] Result Comment: Emre MCGRATH PARTIAL NEPHRECTOMY LEFT Received in formalin designated left renal neoplasm is a segment of chilel-purple membranous tissue which weighs 39 g and measures 7.2 x 5.5 x 3.5 cm. There is cautery present at the margin which is inked orange. The surfaces are smooth with no masses or papillations grossly appreciated. Sectioning does not reveal any masses. Opera Singer sections are submitted in 5 cassettes. BF June 23, 2023 9:00 AM Gross examination performed at [facility], [address] [place] [address] CLIA # [id number] Performed By: #### B , 92991-9 #### [facility] CLIA [id number] 06-15-2023 CNPN Telephone [facility] AISLINN WHEELER ([id number]) 1960 F Date Time Provider Department 06/15/23 [facility] During your visit today, we recorded the [...] Encounter Status:Closed by VONNIE WILDER on 06/15/23 [facility] Kamilah 06-12-2023 CNPRandall Telephone (URFHR) AISLINN WHEELER ([id number]) 1960 F Date Time Provider Department 06/12/23 LILIANA VELASCO [facility] During your visit today, we recorded the following information about you: Liliana Velasco RN 06/12/2023 8:56 AM Signed Received call from RN at Dr. Sara Augustine ([phone]) office (endocrinology) regarding clearance for upcoming surgery [...] Sara sánchez CNP received and scanned into [employer] to view. Allergies As of Date: 06/12/2023 [...] Encounter Status:Closed by LILIANA VELASCO on 06/12/23 [facility] C Urineon 06-10-2023 Bacteria identified Cx [...] Locations R1: This test was performed at: [facility], [address] [place] [address], [address] , , [facility] Comment on above: Performed By: #### 2 [id number] #### [facility] [address] [place] [address] [facility] 06-09-2023 [facility] Telephone ([facility]) AISLINN WHEELER ([id number]) 1960 F Date Time Provider Department 06/09/23 TAURUS BALLARDAbel During your visit today, we recorded the following information about you: Derik Fernandez 06/09/2023 3:31 PM Signed Lvm on patient's phone inquiring if she kept her radial drill operator for plastic appointment on 06/08 for clearance for her surgery on 06/22 Left message with office of Sara Augustine ([phone]) where patient's appointment was scheduled asking for [...] Encounter Status:Closed by DERIK FERNANDEZ on 06/09/23 [facility] Glucose - FINGER STICKon Glucose [Mass/Vol] 436 mg/dL [facility] Other Consent for Procedure/Surger yon 05-22-2023 Consent for Procedure/Surgery [id number]#1.0 0CD:127 Normal [facility] Consent for Treatmenton Consent for Treatment [id number]#1.00C D:127 Normal [facility] Inpatient Patient Summaryon 05-22-2023 Inpatient Patient Summary [place] [id number] Clinical Summary Person Information Name: AISLINN WHEELER Age: 63 Years : 1960 Sex: Female PCP: AGUSTO OLMSTEAD CNP Marital Status: Race: White Ethnicity: Non- or Language: Sinhala Visit Id: Visit Reason: MIXED URINARY INCONTINENCE Speciality: Acuity: Enc Type: Outpatient Med Service: Surgery Arrival: 05/22/2023 09:41:57 Discharge: Dispo Type: Address: Rabia [facility] [id number] Provider Notes: Diagnosis: Feeling of incomplete bladder [...] Porras [address], [place] [address] [phone] Business (1) [address], [place] [address], [place] [phone] Business (1) Comments: Office to schedule follow up in 1 month with PVR Patient Education Information: EU - Cystoscopy with Botox Injection Discharge Instructions (CUSTOM) [facility] IntraOperative Documentson 1 IntraOperative Documents [id number]#1.0 0CD:127 Normal [facility] Main OR Intraoperative Recor don 05-22-2023 Main OR Intraoperative Record IntraOp Document Type FTURO Summary Primary Physician: Lisa Porras MD Finalized Date/Time: 05/22/23 11:29:32 Pt. Name: LIAMAISLINN D.O.B./Sex: 1960 Female Med Rec #: [id number] Physician: Lisa Porras MD Financial #: [id number] Pt. Type: O Room/Bed: / Admit/Disch: 05/22/23 09:41:57 - Institution: Case Times FTURO Entry 1 Patient Times In Room 05/22/23 11:15:00 Out Room 05/22/23 11:30:00 Procedure Times Start 05/22/23 11:22:00 Stop 05/22/23 11:26:00 Anesthesia Times Last Modified By: Katya LE, Marilee Feldman 05/22/23 11:26:29 General Comments: BOTOX 100 UNITS LOT#: [id number] , EXP DATE: 09/2025 -Jessica BLANCO RN Case Attendance FTURO Entry 1 Entry 2 Entry 3 Case Attendee Vern TAVERAS, Lisa Blanco RN, Marilee Solano CST, Cammie Feldman Role Performed Surgeon - Primary Regional Cra - Primary Scrub - Primary Time In [...] Participants Marilee Blanco RN Applicable) Xiomara Cagle PATTERN DRAFTER, Cammie Shoemaker Time Out Complete 05/22/23 11:22:00 [...] By: Marilee Blanco RN 05/22/23 11:29 Normal [facility] Main OR Preoperative Recordo n 05-22-2023 Main OR Preoperative Record Holding Area Document Type FTURO Summary Primary Physician: Lisa Porras MD Finalized Date/Time: 05/22/23 10:32:24 Pt. Name: AISLINN WHEELER/Sex: 1960 Female Med Rec #: [id number] Physician: Lisa Porras MD Financial #: [id number] Pt. Type: O Room/Bed: / Admit/Disch: 05/22/23 [...] By: Cammie Mcpherson RN 05/22/23 10:32 Normal [facility] Operative Reporton 3 Operative Report Patient: BARBARA WHEELER Age: 63 years Sex: Female : 1960 Associated Diagnoses: None Author: Lisa Porras MD Procedure Operative Information Details: Date/ Time: 05/22/2023 11:29:00. Pre-Op Dx: Feeling of incomplete bladder emptying (OGK80-AG R39.14, Discharge, Medical), Mixed incontinence (GFV01-EP N39.46, Discharge, Medical), Urinary leakage (JLQ22-KD R32, Discharge, Medical). Post-Op Dx: Same. Anesthesia [...] to [facility] in the remote past). Normal [facility] Comment on above: Result Comment: Elec tronically Signed By: Lisa Porras MD.\.br\Date and Time Signed: 05/22/23 11:30 EDT Outpatient Surgery Discharge Instructionon 05-22-2023 Outpatient Surgery Discharge Instruction [place] [id number] Patient Discharge Instructions PERSON INFORMATION Name: AISLINN [...] Follow up: With: Address: When: Lisa Porras [address] [place] [phone] Business (1) [address] [place] [address] [place], [place] [phone] Business (1) Comments: Office to schedule follow [...] to serve you. Thank you for choosing [facility] Normal [facility] Consultation Noteon 05-19-20 Consultation Note [id number]#1.00C D:127 Normal [facility] A1C HEMOGLOBINon 05-18-2023 HbA1c (Bld) [Mass fraction] 14.0 % [facility] Other [facility] 05-18-2023 [facility] Telephone ([facility]) AISLINN WHEELER ([id number]) 1960 F Date Time Provider Department 05/18/23 TAURUS BALLARDAbel During your visit today, we recorded the following information about you: Agusto Faulkner 05/18/2023 1:01 PM Signed Consult notes sent back to Dr. Lisa Porras , phone [phone]. From Dr. Ballard office. Allergies As of [...] Encounter Status:Closed by DERIK FERNANDEZ on 06/09/23 [facility] Glucose - FINGER STICKon Glucose [Mass/Vol] 429 mg/dL [facility] Other HbA1c (Bld) [Mass fraction]o n 05-18-2023 A1C [facility]EMOGLOBIN [facility] Other CNOVon 05-17-2023 CNOV Office Visit (URFHR) AISLINN WHEELER ([id number]) 1960 F Date Time Provider Department 05/17/23 1:10 PM TAURUS BALLARD [facility] During your visit today, we recorded the following information about you: Temperature Pulse Blood pressure Weight 97.5 degrees 70/minute 172/81 60.1 kg Taurus Ballard MD 05/17/2023 1:35 PM Signed [facility] FOLLOW-UP PATIENT HISTORY AND PHYSICAL [...] 1.92 01/19/[address] scan (outside records) [facility] 09/28/21 IMPRESSION: Since the prior CT scan [...] other structures) (more content not included)... Normal [facility] C Urineon 05-13-2023 Bacteria identified [...] Locations R1: This test was performed at: [facility], [address] [place] [address], [address]- , , [facility] Comment on above: Performed By: #### 2 131456 #### [facility] [address] [place] [address] Physician Referralon 023 Physician Referral [id number]#1.00CD :127 PATIENT IS SCHEDULED 05/17/2023 [facility] Consultation Noteon 05-04-20 23 Consultation Note [id number]#1.00CD :127 [facility] Insurance Correspondenceon 0 05-04-2023 Insurance Correspondence [id number]#1.00 CD:127 [facility] Urology Office/Clinic Noteon 05-04-2023 Urology Office/Clinic [...] mass on Kidney was not cancerous. However performance improvement coordinator told her she has kidney cancer. Denies [...] PSH lap cholecystectomy, open hysterectomy -Continues with performance improvement coordinator for CKD3 1. Renal cyst (N28.1: Cyst [...] pt to tertiary center, Dr. Ballard at [facility] for evaluation of robotic left cyst decortication -Pt states performance improvement coordinator told her she has cancer. 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 Ordered: 12539 Measure Post Void residual urine and/or bladder capacity by US- non-imaging Urnls Dip Stick Auto w/o Microscopy POC 53452 2. Mixed incontinence (N39.46: Mixed incontinence) Pt [...] of Botox. (more content not included)... Normal [facility] Comment on above: Result Comment: Elec tronically Signed By: Vern TAVERAS, Lisa Montiel\.br\Date and Time Signed: 05/04/23 14:11 EDT Ambulatory Visit Summaryon 0 05-03-2023 Ambulatory Visit Summary LIAMBARBARA PAEZPAMELA Pulido :1960 Visit Date:05/03/2023 Ambulatory Visit Instructions Your Diagnosis Renal mass Renal cyst Mixed incontinence Feeling of incomplete bladder emptying Glucosuria Tests Performed Urnls Dip Stick Auto w/o Microscopy POC 29913 Your Care Team Attending Physician - Lisa [...] one day prior to procedure Pickup at [email or web address] New estradiol topical (Estrace 0.1 mg/ g Cream) See instructions Refills: 3 apply pea size amount to urethra/ inner vagina 3x/ week x 1 month, then 2x/ week for maintainence Pickup at [email or web address] Unchanged trospium (trospium 20 mg oral [...] physician if questions or concerns Pharmacy Information [facility]: [address] [id number] [phone] Test Results Urnls Dip Stick Auto w/o Microscopy POC 20910 (05/03/2023) Bilirubin Urine Dipstick - Negative Blood Urine Dipstick - Trace-intact Glucose Urine Dipstick - 3+ 1000 mg/dl Ketones Urine Dipstick - Negative Leukocytes Urine Dipstick - Negative Nitrite Urine Dipstick - Negative Protein Urine Dipstick - Trace Specific [place] Urine Dipstick - 1.015 Urine Appearance Urine [...] are saf (more content not included)... Normal [facility] Patient Educationon 05-03-20 Patient Education Obstetrics [...] provider. Document Revised: 12/16/2021 Document Reviewed: 12/16/2021 [employer] Patient Education ? 2022 [employer] Normal [facility] 05-03-2023 Screens [id number]#1.00 CD:127 Normal [facility] C Urineon 04-20-2023 Bacteria identified Cx [...] Locations R1: This test was performed at: [facility], [address] [place] [address], [address] , , [facility] Comment on above: Performed By: #### 2 386115 ####[facility] [address] [place] [address] Ambulatory Visit Summaryon 0 04-18-2023 Ambulatory Visit [...] Porras MD Where: [facility] 02-23-2023 Screens [id number] CD:127 [facility] Ambulatory Visit Summaryon 0 02-22-2023 Ambulatory Visit Summary AISLINN WHEELER :1960 Visit Date:02/22/2023 Ambulatory Visit Instructions Your Diagnosis Renal mass Renal cyst Mixed incontinence Feeling of incomplete bladder emptying Glucosuria Tests Performed Urnls Dip Stick Auto w/o Microscopy POC 43058 Your Care Team Attending Physician - Lisa [...] TAVERAS, Lisa Montiel Where: [facility] Patient Educationon 02-23-20 Patient Education Obstetrics [...] provider. Document Revised: 12/16/2021 Document Reviewed: 12/16/2021 [employer] Patient Education ? 2022 [employer] [facility] Urology Office/Clinic Noteon 02-22-2023 Urology Office/Clinic [...] PSH lap cholecystectomy, open hysterectomy -Continues with performance improvement coordinator after referred last visit 1. Renal mass [...] and the (more content not included)... Normal [facility] Comment on above: Result Comment: Elec tronically Signed By: Lisa Porras MD.bia\Date and Time Signed: 02/22/23 10:14 EDT\.br\Electronically Co-Signed By: Marilee Gray.br\Date and Time Co-Signed: 02/22/23 09:36 EDT Lab Reportson 02-20-2023 Lab Reports [id number]#1.00C D:127 Normal [facility] RAD - CT Reporton 02-20-2023 RAD - CT Report [id number]#1.00CD :127 Normal [facility] Physician Orderon 02-01-2023 Physician Order [id number]#1.00CD :127 Normal [facility] Consultation Noteon 01-08-20 Consultation Note [id number]#1.00C D:127 Normal [facility] XR FOOT LT MIN 3 VIEWSon XR FOOT LT MIN 3 VIEWS Normal [facility] MG MAMM SCREEN 3D GURJIT CADon 12-28-2022 MG MAMM SCREEN 3D GURJIT CAD Normal [facility] XR DEXA BONE DENSITYon 12-28 XR DEXA BONE DENSITY Normal [facility] NM STRESS/REST MULTIon 12-15 NM STRESS/REST MULTI Normal [facility] XR FOOT LT MIN 3 VIEWSon XR FOOT LT MIN 3 VIEWS Normal [facility] Physician Referralon 023 Physician Referral [id number]#1.00C D:127 Normal [facility] CT FOOT LT WO CONon 10-28-19 CT FOOT LT WO CON Normal [facility] XR FOOT LT MIN 3 VIEWSon XR FOOT LT MIN 3 VIEWS Normal [facility] XR FOOT LT MIN 3 VIEWSon XR FOOT LT MIN 3 VIEWS Normal [facility] XR FOOT LT MIN 3 VIEWSon XR FOOT LT MIN 3 VIEWS Normal [facility] XR FOOT LT MIN 3 VIEWSon XR FOOT LT MIN 3 VIEWS Normal [facility] XR FOOT LT MIN 3 VIEWSon XR FOOT LT MIN 3 VIEWS Normal [facility] US KIDNEYSon 09-15-2022 US KIDNEYS Normal [facility] XR FOOT LT MIN 3 VIEWSon XR FOOT LT MIN 3 VIEWS Normal [facility] XR FOOT LT MIN 3 VIEWSon XR FOOT LT MIN 3 VIEWS Normal [facility] XR FOOT LT MIN 3 VIEWSon XR FOOT LT MIN 3 VIEWS Normal [facility] CBC AUTO DIFFon 08-03-2022 BASO # 0.0 103/ul Normal 0.0-0.1 [facility] Comment on above: Performed By: #### C BC ####[facility] Zlhwtqwrgp[address]103 [place] [address]Dr. Ricardo Rocha Basophils/100 WBC (Bld) 0.5 % Normal 0.2-2.0 [facility] Comment on above: Performed By: #### C BC ####[facility] Dlbhadcnjj9[address] [place], [place] [address]Dr. Ricardo Rocha EO # 0.1 103/ul Normal 0.0-0.7 [facility] Comment on above: Performed By: #### C BC ####[facility] Tpmdyvkjsn[address] [place], [place] [address]Dr. Ricardo Rocha Eosinophils/100 WBC (Bld) 1.2 % Normal 0.9-7.0 [facility] Comment on above: Performed By: #### C BC ####[facility] Lxbyazsmyw[address] [place], [place] [address]Dr. Ricardo Rocha Erythrocyte distribution width (RBC) [Ratio] 15.0 % Normal 11.0-15.0 [facility] Comment on above: Performed By: #### C BC ####[facility] Swqgcnnywa4[address] [place], [place] [address]Dr. Ricardo Rocha Hematocrit (Bld) [Volume fraction] 29.5 % Critically low 36.0-48.0 [facility] Comment on above: Performed By: #### C BC ####[facility] Nzybcxbppl[address] [place], [place] [address]Dr. Ricardo Rocha Hemoglobin (Bld) [Mass/Vol] 9.3 g/dL Critically low 12.0-16.0 [facility] Comment on above: Performed By: #### C BC ####[facility] Hqjubvkgjd0798 [place] [id number]. Ricardo Rocha IG # 0.04 10e3/ul Critically high 0.00-0.03 [facility] Comment on above: Performed By: #### C BC ####[facility] Clmqxriuhv4304 [place] [id number]. Ricardo Rocha IG % 0.5 % Normal 0.0-0.5 [facility] Comment on above: Performed By: #### C BC ####[facility] Swcdhtewvo6634 [place] [address]Dr. Ricardo Rocha LYMPH # 1.4 103/ul Normal 1.2-3.8 [facility] Comment on above: Performed By: #### C BC ####[facility] Aoumsghvqy0983 [place] [address]Dr. Ricardo Rocha Lymphocytes/100 WBC (Bld) 17.2 % Critically low 20.5-60.0 [facility] Comment on above: Performed By: #### C BC ####[facility] Clmxupgfmu6073 [place] [address]Dr. Ricardo Rocha MANUAL DIFF REQ NO Normal [facility] Comment on above: Performed By: #### C BC ####[facility] Bztkqrsgoi0162 [place] [id number]. Ricardo Rocha MCH (RBC) [Entitic mass] 25.2 pg Critically low 26.7-34.0 [facility] Comment on above: Performed By: #### C BC ####[facility] Oahuttagpy6278 [place] [id number]. Ricardo Rocha MCHC (RBC) [Mass/Vol] 31.5 g/dL Normal 29.9-35.2 [facility] Comment on above: Performed By: #### C BC ####[facility] Nphzgmjyow5126 [place] [address]Dr. Ricardo Rocha MCV (RBC) [Entitic vol] 79.9 fL Critically low 81.0-99.0 [facility] Comment on above: Performed By: #### C BC ####[facility] Qfetifpyit3495 [place] [id number]. Ricardo Rocha MONO # 0.6 103/ul Normal 0.3-0.8 [facility] Comment on above: Performed By: #### C BC ####[facility] Nxpcyfaawc9755 [place] [id number]. Ricardo Rocha Monocytes/100 WBC (Bld) 7.6 % Normal 1.7-12.0 [facility] Comment on above: Performed By: #### C BC ####[facility] Trepcaylno7198 [place] [id number]. Ricardo Rocha NEUT # 5.9 103/ul Normal 1.4-6.5 [facility] Comment on above: Performed By: #### C BC ####[facility] Blfhlpzdgh2316 [place] [id number]. Ricardo Rocha Neutrophils/100 WBC (Bld) 73.0 % Normal 43.0-75.0 [facility] Comment on above: Performed By: #### C BC ####[facility] Mcgolygibp0675 [place] [id number]. Ricardo Rocha Platelet mean volume (Bld) [Entitic vol] 11.4 fL Normal 9.5-13.5 [facility] Comment on above: Performed By: #### C BC ####[facility] Hzumpjwzju2883 [place] [id number]. Ricardo Rocha PLT 253 103/ul Normal 150-450 [facility] Comment on above: Performed By: #### C BC ####[facility] Ienxtzskkr3748 [place] [id number]. Ricardo Rocha RBC 3.69 106/ul Critically low 4.20-5.40 [facility] Comment on above: Performed By: #### C BC ####[facility] Txyuechkml3294 [place] [id number]. Ricardo Rocha WBC 8.0 103/ul Normal 4.0-11.0 [facility] Comment on above: Performed By: #### C BC ####[facility] Qhhidrbgvj8206 [place] [address]Dr. Ricardo Rocha CRPon 08-03-2022 CRP 3.1 mg/dL Critically high <=1.0 [facility] Comment on above: Performed By: #### C RP, BMP, URIC ####[facility] Octmpgqcff8329 [place] [address]Dr. Ricardo Rocha CULTURE BLOODon 08-03-2022 Microscopic examination of blood, culture Culture Observations: NO GROWTH AT 5 DAYS. Normal [facility] Comment on above: Performed By: #### B LDCX2 ####[facility] Qfnnezhhop64[address] [place], [place] [address]Dr. Ricardo Rocha Microscopic examination of blood, culture Culture Observations: NO GROWTH AT 5 DAYS. Normal [facility] Comment on above: Performed By: #### B LDCX1 ####[facility] Pkgibgjfio[address] [place], [place] [address]Dr. Ricardo Rocha ER URINE PROFILEon 2 Bilirubin Ql (U) Negative Normal NEGATIVE [facility] Comment on above: Performed By: #### E RUR ####[facility] Kicvjvpntn538[address] [place], [place] [address]Dr. Ricardo Aj Clarity (U) CLEAR Normal CLEAR [facility] Comment on above: Performed By: #### E RUR ####[facility] Cljjrvoqsu4221 [place] [address]Dr. Nanomarcial Aj Color (U) LT. YELLOW Normal YELLOW [facility] Comment on above: Performed By: #### E RUR ####[facility] Ceeupfawbh[address] [place], [place] [address]Dr. Ricardo Rocha ERUAHD A micrscopic examination will be performed if indicated. Normal [facility] Comment on above: Performed By: #### E RUR ####[facility] Bkepgzizfs9245[address] [place], [place] [address]Dr. Ricardo Rocha Glucose Ql (U) 100 mg/dl Abnormal NEGATIVE [facility] Comment on above: Performed By: #### E RUR ####[facility] Hpbtzbgqbg2946 [place] [address]Dr. Ricardo Rocha Hemoglobin Ql (U) Negative Normal NEGATIVE The [facility] Comment on above: Performed By: #### E RUR ####[facility] Bxvsvifqvj[address] [place], [place] [address]Dr. Ricardo Rocha Ketones Ql (U) Negative Normal NEGATIVE [facility] Comment on above: Performed By: #### E RUR ####[facility] Vethjomyvg01[address] [place], [place] [address]Dr. Ricardo Rocha LEUKOCYTES Negative Normal NEGATIVE [facility] Comment on above: Performed By: #### E RUR ####[facility] Apyzlloyhy45[address] [place], [place] [address]Dr. Ricardo Rocha Nitrite Ql (U) Negative Normal NEGATIVE [facility] Comment on above: Performed By: #### E RUR ####[facility] Wyfufmsikq707[address] [place], [place] [address]Dr. Ricardo Rocha pH (U) 6.0 [pH] Normal 5-9 [facility] Comment on above: Performed By: #### E RUR ####[facility] Stjwpaueib[address] [place], [place] [address]Dr. Ricardo Rocha SPEC GRAVITY 1.010 Normal 1.005-<=1.02 5 [facility] Comment on above: Performed By: #### E RUR ####[facility] Rbwtygdeuu6614[address] [place], [place] [address]Dr. Ricardo Rocha UA PROTEIN Negative Normal NEGATIVE/ TRACE [facility] Comment on above: Performed By: #### E RUR ####[facility] Hcychpbohr56[address] [place], [place] [address]Dr. Nanomarcial Rocha UR MICRO IND NOT INDICATED Normal [facility] Comment on above: Performed By: #### E RUR ####[facility] Knudnohcyo36[address] [place], [place] [address]Dr. Ricardo Rocha Urobilinogen Qn (U) 0.2 {Madeleine'U}/dL Normal 0.2 - 1. 0 [facility] Comment on above: Performed By: #### E RUR ####[facility] Wrawakvcww8768 [place] [address]Dr. Ricardo Rocha LACTATE/LACTIC ACIDon 2021 Lactate [Moles/Vol] 0.5 mmol/L Normal 0.4-1.9 [facility] Comment on above: Performed By: #### L ACT ####[facility] Djavvqpdlr4987[address] [place], [place] [address]Dr. Ricardo Rocha PROF CHEM 8 (BAS METB)on Anion gap [Moles/Vol] 12.9 mmol/L Normal [facility] Comment on above: Performed By: #### C RP, BMP, URIC ####[facility] Njwyhwzgox8[address] [place], [place] [address]Dr. Ricardo Rocha Calcium [Mass/Vol] 9.0 mg/dL Normal 8.5-10.1 [facility] Comment on above: Performed By: #### C RP, BMP, URIC ####[facility] Poupastyyx[address] [place], [place] [address]Dr. Ricardo Rocha Chloride [Moles/Vol] 102 mmol/L Normal 98-107 [facility] Comment on above: Performed By: #### C RP, BMP, URIC ####[facility] Jkfsvopvzw[address] [place], [place] [address]Dr. Ricardo Rocha CO2 [Moles/Vol] 23.9 mmol/L Normal 21.0-32.0 [facility] Comment on above: Performed By: #### C RP, BMP, URIC ####[facility] Cyfxoejpfn30[address] [place], [place] [address]Dr. Ricardo Rocha Creatinine [Mass/Vol] 1.36 mg/dL Critically high 0.55-1.02 [facility] Comment on above: Performed By: #### C RP, BMP, URIC ####[facility] Rttqqxullc[address] [place], [place] [address]Dr. Ricardo Rocha EGFR-AF BHUTANESE 47 mL/min/1.73m2 Critically low >=60 [facility] Comment on above: Performed By: #### C RP, BMP, URIC ####[facility] Cuhcsbneul5513 [place] [id number]. Ricardo Rocha EGFR-NON AF BHUTANESE 39 mL/min/1.73m2 Critically low >=60 [facility] Comment on above: Performed By: #### C RP, BMP, URIC ####[facility] Bfqdpfldrl9856 [place] [phone]. Ricardo Rocha Glucose [Mass/Vol] 125 mg/dL Critically high 74-[address] [facility] Comment on above: Performed By: #### C RP, BMP, URIC ####[facility] Zvbcxtyeto5689 [place] [phone]. Ricardo Rocha Potassium [Moles/Vol] 4.8 mmol/L Normal 3.5-5.1 [facility] Comment on above: Performed By: #### C RP, BMP, URIC ####[facility] Oemlzbpqvv5883 [place] [address]Dr. Ricardo Rocha Sodium [Moles/Vol] 134 mmol/L Critically low 136-145 Th [facility] Comment on above: Performed By: #### C RP, BMP, URIC ####[facility] Mwxhmudnfa8295 [place] [address]Dr. Ricardo Rocha Urea nitrogen [Mass/Vol] 22.0 mg/dL Critically high 7.0-18.0 [facility] Comment on above: Performed By: #### C RP, BMP, URIC ####[facility] Dchzrgdbcq0373 [place] [address]Dr. Nanomarcial Aj Urea nitrogen/Creatinine [Mass ratio] 16.2 mg/mg Normal [facility] Comment on above: Performed By: #### C RP, BMP, URIC ####[facility] Itmwmgghvb7324 [place] [id number]. Nanomarcial Aj SED RATE WESTERGRENon 2021 SED RATE 95 mm/hr Critically high <=30 [facility] Comment on above: Performed By: #### S EDR ####[facility] Lsfdntxhkj5867 [place] [address]Dr. Nanomarcial Aj URIC ACID SERUMon 12-14-2022 Urate [Mass/Vol] 4.7 mg/dL Normal 2.6-6.0 [facility] Comment on above: Performed By: #### C RP, BMP, URIC ####[facility] Kcifrmuqkq7326 [place] [id number]. Ricardo Rocha XR FOOT LT MIN 3 VIEWSon XR FOOT LT MIN 3 VIEWS Normal [facility] PROF CHEM 8 (BAS METB)on Anion gap [Moles/Vol] 13.8 mmol/L Normal [facility] Comment on above: Performed By: #### B MP ####[facility] Efwlwdmjei5923 [place] [address]Dr. Nanomarcial Aj Calcium [Mass/Vol] 8.9 mg/dL Normal 8.5-10.1 [facility] Comment on above: Performed By: #### B MP ####[facility] Kzlejdeqjv4673 [place] [address]Dr. Ricardo Rocha Chloride [Moles/Vol] 101 mmol/L Normal 98-107 [facility] Comment on above: Performed By: #### B MP ####[facility] Qfqvroqulk1682 [place] [address]Dr. Ricardo Rocha CO2 [Moles/Vol] 22.8 mmol/L Normal 21.0-32.0 [facility] Comment on above: Performed By: #### B MP ####[facility] Ivxjhebpwc6022 [place] [id number]. Ricardo Rocha Creatinine [Mass/Vol] 1.43 mg/dL Critically high 0.55-1.02 [facility] Comment on above: Performed By: #### B MP ####[facility] Ncgeyvwpuz6322 [place] [address]Dr. Ricardo Rocha EGFR-AF BHUTANESE 45 mL/min/1.73m2 Critically low >=60 [facility] Comment on above: Performed By: #### B MP ####[facility] Feddvbwfvc4450 [place] [address]Dr. Ricardo Rocha EGFR-NON AF BHUTANESE 37 mL/min/1.73m2 Critically low >=60 [facility] Comment on above: Performed By: #### B MP ####[facility] Jgutitcgmn6163 [place] [id number]. Ricardo Rocha Glucose [Mass/Vol] 279 mg/dL Critically high 74-[address] [facility] Comment on above: Performed By: #### B MP ####[facility] Bmsavxdmsk8031 [place] [id number]. Ricardo Rocha Potassium [Moles/Vol] 4.6 mmol/L Normal 3.5-5.1 [facility] Comment on above: Performed By: #### B MP ####[facility] Ttwtewnqpm0643 [place] [phone]. Ricardo Rocha Sodium [Moles/Vol] 133 mmol/L Critically low 136-145 Th [facility] Comment on above: Performed By: #### B MP ####[facility] Ox[address]zvztsnd[address] [place], [place] [address]Dr. Ricardo Rocha Urea nitrogen [Mass/Vol] 24.0 mg/dL Critically high 7.0-18.0 [facility] Comment on above: Performed By: #### B MP ####[facility] Lmwemzcadk[address] [place], [place] [address]Dr. Ricardo Rocha Urea nitrogen/Creatinine [Mass ratio] 16.8 mg/mg Normal [facility] Comment on above: Performed By: #### B MP ####[facility] Yadrsgotmy40[address] [place], [place] [address]Dr. Ricardo Aj ACID FAST SMEAR AND CXon Acid Fast Culture Negative [facility] Comment on above: Result Comment: No a amilcar fast bacilli isolated after 6 weeks. Performed By: #### A FB ####[facility] Qifxgxsaps0476 [place] [id number]. Ricardo Rocha Acid Fast Smear Negative Normal [facility] Comment on above: Performed By: #### A FB ####[facility] Welahbjxmp2262 [place] [phone]. Ricardo Rocha [employer] Specimen Processing Direct Inoculation [facility] Comment on above: Performed By: #### A FB ####[facility] Jltvjcfcvb8370 [place] [id number]. Ricardo Rocha [employer] Specimen Processing Tissue Grinding Normal [facility] Comment on above: Performed By: #### A FB ####[facility] Xmgtbnmwml1673 [place] [address]Dr. Ricardo Rocha FUNGAL CULTUREon 07-11-2022 Fungus (Mycology) Culture Final report Normal [facility] Comment on above: Performed By: #### C XFUN ####[facility] Zprkqbdvqw[address] [place], [place] [address]Dr. Ricardo Rocha Fungus Stain Final report Normal [facility] Comment on above: Performed By: #### C XFUN ####[facility] Bczujwihvt2314[address] [place], [place] [address]Dr. Ricardo Rocha Result 1 Comment Normal [facility] Comment on above: Result Comment: AAYUSH/ Calcofluor preparation: no fungus observed. Performed By: #### C XFUN ####[facility] Vaaixcuaul46[address] [place], [place] [address]Dr. Ricardo Rocha Result Comment: No y east or mold isolated after 4 weeks. PROF CHEM 8 (BAS METB)on Anion gap [Moles/Vol] 15.1 mmol/L Normal [facility] Comment on above: Performed By: #### B MP ####[facility] Fawrqcbvih2[address] [place], [place] [address]Dr. Ricardo Rocha Calcium [Mass/Vol] 9.0 mg/dL Normal 8.5-10.1 [facility] Comment on above: Performed By: #### B MP ####[facility] Gdrpscsjbr[address] [place], [place] [address]Dr. Ricardo Rocha Chloride [Moles/Vol] 101 mmol/L Normal 98-107 [facility] Comment on above: Performed By: #### B MP ####[facility] Jranabjppo[address] [place], [place] [address]Dr. Ricardo Rocha CO2 [Moles/Vol] 18.5 mmol/L Critically low 21.0-32.0 [facility] Comment on above: Performed By: #### B MP ####[facility] Oeatkdsaec7910 [place] [address]Dr. Ricardo Rocha Creatinine [Mass/Vol] 2.05 mg/dL Critically high 0.55-1.02 [facility] Comment on above: Performed By: #### B MP ####[facility] Lgqrfafjoj2354 [place] [address]Dr. Nanomarcial Aj EGFR-AF BHUTANESE 30 mL/min/1.73m2 Critically low >=60 [facility] Comment on above: Performed By: #### B MP ####[facility] Broccnvhdo2384 [place] [address]Dr. Ricardo Rocha EGFR-NON AF BHUTANESE 24 mL/min/1.73m2 Critically low >=60 [facility] Comment on above: Performed By: #### B MP ####[facility] Wxswutpnnn176[address] [place], [place] [address]Dr. Ricardo Rocha Glucose [Mass/Vol] 134 mg/dL Critically high 74-[address] [facility] Comment on above: Performed By: #### B MP ####[facility] Xppqksmwko16[address] [place], [place] [address]Dr. Ricardo Rocha Potassium [Moles/Vol] 5.6 mmol/L Critically high 3.5-5.1 [facility] Comment on above: Performed By: #### B MP ####[facility] Eesystrzxl879[address] [place], [place] [address]Dr. Ricardo Rocha Sodium [Moles/Vol] 129 mmol/L Critically low 136-145 Th [facility] Comment on above: Performed By: #### B MP ####[facility] Tqtnylqkyo035[address] [place], [place] [address]Dr. Ricardo Rocha Urea nitrogen [Mass/Vol] 57.0 mg/dL Critically high 7.0-18.0 [facility] Comment on above: Performed By: #### B MP ####[facility] Clsrirkppz028[address] [place], [place] [address]Dr. Ricardo Rocha Urea nitrogen/Creatinine [Mass ratio] 27.8 mg/mg Normal [facility] Comment on above: Performed By: #### B MP ####[facility] Olwvkqanmh7251 [place] [address]Dr. Ricardo Rocha CBC AUTO DIFFon 07-06-2022 BASO # 0.0 103/ul Normal 0.0-0.1 [facility] Comment on above: Performed By: #### C BC ####[facility] Jhqbocvmpn[address] [place], [place] [address]Dr. Nanomarcial Rocha Basophils/100 WBC (Bld) 0.6 % Normal 0.2-2.0 [facility] Comment on above: Performed By: #### C BC ####[facility] Laspwdlzcx227[address] [place], [place] [address]Dr. Ricardo Rocha EO # 0.1 103/ul Normal 0.0-0.7 [facility] Comment on above: Performed By: #### C BC ####[facility] Voacyhsepq1259[address] [place], [place] [address]Dr. Ricardo Rocha Eosinophils/100 WBC (Bld) 1.7 % Normal 0.9-7.0 [facility] Comment on above: Performed By: #### C BC ####[facility] Eqosuesvvz396[address] [place], [place] [address]Dr. Ricardo Aj Erythrocyte distribution width (RBC) [Ratio] 15.2 % Critically high 11.0-15.0 [facility] Comment on above: Performed By: #### C BC ####[facility] Jlpwskorbs8967[address] [place], [place] [address]Dr. Nanomarcial Rocha Hematocrit (Bld) [Volume fraction] 34.6 % Critically low 36.0-48.0 [facility] Comment on above: Performed By: #### C BC ####[facility] Cwfkfzgqut401[address] [place], [place] [address]Dr. Ricardo Rocha Hemoglobin (Bld) [Mass/Vol] 10.5 g/dL Critically low 12.0-16.0 [facility] Comment on above: Performed By: #### C BC ####[facility] Kdwurqapjt05[address] [place], [place] [address]Dr. Ricardo Rocha IG # 0.01 10e3/ul Normal 0.00-0.03 [facility] Comment on above: Performed By: #### C BC ####[facility] Fosfravhms5633 [place] [address]Dr. Ricardo Rocha IG % 0.2 % Normal 0.0-0.5 [facility] Comment on above: Performed By: #### C BC ####[facility] Oyzlfwtsni7626 [place] [address]Dr. Ricardo Rocha LYMPH # 2.4 103/ul Normal 1.2-3.8 [facility] Comment on above: Performed By: #### C BC ####[facility] Wvkhxnbwya[address] [place], [place] [address]DrIrina Ricardo Rocha Lymphocytes/100 WBC (Bld) 44.4 % Normal 20.5-60.0 [facility] Comment on above: Performed By: #### C BC ####[facility] Stgclossgm[address] [place], [place] [address]Dr. Ricardo Rocha MANUAL DIFF REQ NO Normal [facility] Comment on above: Performed By: #### C BC ####[facility] Rrdojqdnhw3941 [place] [address]Dr. Ricardo Rocha MCH (RBC) [Entitic mass] 25.0 pg Critically low 26.7-34.0 [facility] Comment on above: Performed By: #### C BC ####[facility] Gauqvfhzac[address] [place], [place] [address]Dr. Ricardo Rocha MCHC (RBC) [Mass/Vol] 30.3 g/dL Normal 29.9-35.2 [facility] Comment on above: Performed By: #### C BC ####[facility] Kmuuuybrxa[address] [place], [place] [address]DrIrina Ricardo Rocha MCV (RBC) [Entitic vol] 82.4 fL Normal 81.0-99.0 [facility] Comment on above: Performed By: #### C BC ####[facility] Afhznkhede[address] [place], [place] [address]DrIrina Ricardo Aj MONO # 0.3 103/ul Normal 0.3-0.8 [facility] Comment on above: Performed By: #### C BC ####[facility] Uibstjijcp2953 [place] [address]Dr. Ricardo Rocha Monocytes/100 WBC (Bld) 5.1 % Normal 1.7-12.0 [facility] Comment on above: Performed By: #### C BC ####[facility] Yyqjpnjvrt1668 [place] [id number]. Ricardo Rocha NEUT # 2.5 103/ul Normal 1.4-6.5 [facility] Comment on above: Performed By: #### C BC ####[facility] Irgrienqxn9658 [place] [address]Dr. Ricardo Rocha Neutrophils/100 WBC (Bld) 48.0 % Normal 43.0-75.0 [facility] Comment on above: Performed By: #### C BC ####[facility] Rkcpbugokm9970 [place] [address]Dr. Ricardo Rocha Platelet mean volume (Bld) [Entitic vol] 10.7 fL Normal 9.5-13.5 [facility] Comment on above: Performed By: #### C BC ####[facility] Nqbizrbghc[address] [place], [place] [address]Dr. Ricardo Rocha PLT 261 103/ul Normal 150-450 [facility] Comment on above: Performed By: #### C BC ####[facility] Rgorvvckwe9003 [place] [address]Dr. Ricardo Rocha RBC 4.20 106/ul Normal 4.20-5.40 [facility] Comment on above: Performed By: #### C BC ####[facility] Amefhwhhwr4635 [place] [id number]. Ricardo Rocha WBC 5.3 103/ul Normal 4.0-11.0 [facility] Comment on above: Performed By: #### C BC ####[facility] Dujgqdehxy9488 [place] [id number]. Ricardo Rocha GLYCOHEMOGLOBIN A1Con 2021 ADA RECOMMENDATION SEE BELOW Normal [facility] Comment on above: Result Comment: ADA RECOMMENDED LIMIT 4.0 - 6.0 ADA THERAPEUTIC TARGET < 7.0 ACTION SUGGESTED > 7.0 Performed By: #### A 1C ####[facility] Entxvbiris5615 [place] [id number]. Ricardo Rocha Glucose [Mass/Vol] 289 mg/dL Normal [facility] Comment on above: Performed By: #### A 1C ####[facility] Rswmpvtzmp4483 [place] [address]Dr. Ricardo Rocha HbA1c (Bld) [Mass fraction] 11.7 % Critically high 4.5-6.2 [facility] Comment on above: Performed By: #### A 1C ####[facility] Szjhmdesnv0497 [place] [address]Dr. Ricardo Aj LIPID PROFILEon 07-06-2022 CHOL-HDL RATIO NORM SEE BELOW Normal [facility] Comment on above: Result Comment: 3.3 - 4.4 LOW RISK 4.4 - 7.1 AVERAGE RISK 7.1 - 11.0 MODERATE RISK >11.0 HIGH RISK Performed By: #### T SH, CMP, LIPID ####[facility] Otkdpdhwtc0693 [place] [id number]. Ricardo Rocha Cholesterol [Mass/Vol] 284 mg/dL Critically high <=200 [facility] Comment on above: Performed By: #### T SH, CMP, LIPID ####[facility] Afnxmirypr6250 [place] [id number]. Ricardo Rocha Cholesterol in HDL [Mass/Vol] 40 mg/dL Normal 40-60 [facility] Comment on above: Performed By: #### T SH, CMP, LIPID ####[facility] Qlmqntafbf5530 [place] [id number]. Ricardo Rocha Cholesterol in LDL [Mass/Vol] 167.8 mg/dL Normal [facility] Comment on above: Performed By: #### T SH, CMP, LIPID ####[facility] Kjgdqrfztc8989 [place] [id number]. Ricardo Rocha Cholesterol.total/Ch olesterol in HDL [Mass ratio] 7.1 {ratio} Normal [facility] Comment on above: Performed By: #### T SH, CMP, LIPID ####[facility] Qbndtxhrds1858 [place] [address]Dr. Ricardo Rocha HDL NORMAL > or = 60 mg/dl - LO W CARDIOVASCULAR RISK <40 mg/dl - HIGH CARDIOVASCULAR RISK Normal [facility] Comment on above: Performed By: #### T SH, CMP, LIPID ####[facility] Ctnwhqklxc1842 [place] [address]Dr. Ricardo Rocha LDL CALC NORMAL SEE BELOW Normal [facility] Comment on above: Result Comment: <100 mg/dl OPTIMAL 100 - 129 mg/dl NEAR OR ABOVE OPTIMAL 130 - 159 mg/dl BORDERLINE HIGH 160 - 189 mg/dl HIGH >190 mg/dl VERY HIGH Performed By: #### T SH, CMP, LIPID ####[facility] Rhymplwudp1626 [place] [address]Dr. Ricardo Rocha Triglyceride [Mass/Vol] 381 mg/dL Critically high <=150 [facility] Comment on above: Performed By: #### T SH, CMP, LIPID ####[facility] Isvcblqaxv2753 [place] [address]Dr. Ricardo Rocha VLDL CALC 76.2 mg/dL Normal [facility] Comment on above: Performed By: #### T SH, CMP, LIPID ####[facility] Rkiohkdvub3542 [place] [address]Dr. Ricardo Rocha MICROALBUMIN, RAND URon 11- mALB <1.3 Normal <=30.0 [facility] Comment on above: Performed By: #### M ALBR ####[facility] Ruaqdeygdb7186 [place] [address]Dr. Ricardo Rocha PROF 14(COMP METB)on 022 Albumin [Mass/Vol] 3.3 g/dL Critically low 3.4-5.0 Th [facility] Comment on above: Performed By: #### T SH, CMP, LIPID ####[facility] Murldswfnr8808 [place] [address]Dr. Ricardo Rocha Albumin/Globulin [Mass ratio] 0.5 {ratio} Normal [facility] Comment on above: Performed By: #### T SH, CMP, LIPID ####[facility] Rdmlekynug8665 [place] [address]Dr. Ricardo Rocha ALP [Catalytic activity/Vol] 129 U/L Critically high 46-116 [facility] Comment on above: Performed By: #### T SH, CMP, LIPID ####[facility] Phixnncvru3257 [place] [address]Dr. Ricardo Rocha ALT [Catalytic activity/Vol] 22 U/L Normal 14-59 [facility] Comment on above: Performed By: #### T SH, CMP, LIPID ####[facility] Gsviwduarq2649 [place] [address]Dr. Ricardo Rocha Anion gap [Moles/Vol] 16.1 mmol/L Normal [facility] Comment on above: Performed By: #### T SH, CMP, LIPID ####[facility] Aqxbarjfnd[address] [place], [place] [address]Dr. Ricardo Rocha AST [Catalytic activity/Vol] 22 U/L Normal 15-37 [facility] Comment on above: Performed By: #### T SH, CMP, LIPID ####[facility] Bqenncbwfs[address] [place], [place] [address]Dr. Ricardo Rocha Bilirubin [Mass/Vol] 0.2 mg/dL Normal 0.2-1.0 [facility] Comment on above: Performed By: #### T SH, CMP, LIPID ####[facility] Txjjrfkjur[address] [place], [place] [address]Dr. Ricardo Rocha Calcium [Mass/Vol] 9.4 mg/dL Normal 8.5-10.1 [facility] Comment on above: Performed By: #### T SH, CMP, LIPID ####[facility] Gwofzrghla3418 [place] [address]Dr. Ricardo Rocha Chloride [Moles/Vol] 102 mmol/L Normal 98-107 [facility] Comment on above: Performed By: #### T SH, CMP, LIPID ####[facility] Aboquew[address] [place], [place] [address]Dr. Ricardo Rocha CO2 [Moles/Vol] 18.4 mmol/L Critically low 21.0-32.0 [facility] Comment on above: Performed By: #### T SH, CMP, LIPID ####[facility] Bjjydlfpjs8704 [place] [address]Dr. Ricardo Rocha Creatinine [Mass/Vol] 2.01 mg/dL Critically high 0.55-1.02 [facility] Comment on above: Performed By: #### T SH, CMP, LIPID ####[facility] Yymcwnohzs2340 [place] [address]Dr. Nanomarcial Rocha EGFR-AF BHUTANESE 30 mL/min/1.73m2 Critically low >=60 [facility] Comment on above: Performed By: #### T SH, CMP, LIPID ####[facility] Nshfolcybr2721 [place] [address]Dr. Ricardo Rocha EGFR-NON AF BHUTANESE 25 mL/min/1.73m2 Critically low >=60 [facility] Comment on above: Performed By: #### T SH, CMP, LIPID ####[facility] Myknbbvagr4324 [place] [address]Dr. Ricardo Rocha Globulin (S) [Mass/Vol] 6.3 g/dL Normal [facility] Comment on above: Performed By: #### T SH, CMP, LIPID ####[facility] Nlqwextqfb7475 [place] [address]Dr. Ricardo Rocha Glucose [Mass/Vol] 118 mg/dL Critically high 74-106 [facility] Comment on above: Performed By: #### T SH, CMP, LIPID ####[facility] Zdsgkcttdi0418 [place] [address]Dr. Ricardo Rocha Potassium [Moles/Vol] 5.5 mmol/L Critically high 3.5-5.1 [facility] Comment on above: Performed By: #### T SH, CMP, LIPID ####[facility] Heaeiuanmf4615 [place] [address]Dr. Ricardo Rocha Protein [Mass/Vol] 9.6 g/dL Critically high 6.4-8.2 [facility] Comment on above: Performed By: #### T SH, CMP, LIPID ####[facility] Jabdoevasf1206 [place] [address]Dr. Ricardo Rocha Sodium [Moles/Vol] 131 mmol/L Critically low 136-145 Th [facility] Comment on above: Performed By: #### T SH, CMP, LIPID ####[facility] Qrzxpihdux2808 [place] [address]Dr. Ricardo Rocha Urea nitrogen [Mass/Vol] 45.0 mg/dL Critically high 7.0-18.0 [facility] Comment on above: Performed By: #### T SH, CMP, LIPID ####[facility] Voxfutmnhc24[address] [place], [place] [address]Dr. Ricardo Rocha Urea nitrogen/Creatinine [Mass ratio] 22.4 mg/mg Normal [facility] Comment on above: Performed By: #### T SH, CMP, LIPID ####[facility] Jiegavxais86[address] [place], [place] [address]Dr. Ricardo Rocha TSHon 07-06-2022 TSH 1.178 uIU/mL Normal 0.358-3.740 [facility] Comment on above: Performed By: #### T SH, CMP, LIPID ####[facility] Xhoottrzup[address] [place], [place] [address]Dr. Ricardo Rocha UA RANDOM W/MICROSCOPICon BACTERIA NONE SEEN Normal NONE SEEN [facility] Comment on above: Performed By: #### U AMIC ####[facility] Gatpndysui[address] [place], [place] [address]Dr. Ricardo Rocha Bilirubin Ql (U) Negative Normal NEGATIVE [facility] Comment on above: Performed By: #### U AMIC ####[facility] Dhajzapxfd[address] [place], [place] [address]Dr. Ricardo Rocha CAST NONE SEEN Normal NONE SEEN [facility] Comment on above: Performed By: #### U AMIC ####[facility] Iqfhuarmud99[address] [place], [place] [address]Dr. Ricardo Rocha Clarity (U) CLEAR Normal CLEAR [facility] Comment on above: Performed By: #### U AMIC ####[facility] Ezkdwogxcy2072 [place] [address]Dr. Ricardo Rocha Color (U) LT. YELLOW Normal YELLOW [facility] Comment on above: Performed By: #### U AMIC ####[facility] Qczctfpgqg2603 [place] [id number]. Yilan Rocha Crystals LM Nom (Urine sed) NONE SEEN Normal NONE SEEN [facility] Comment on above: Performed By: #### U AMIC ####[facility] Joiaypyram1117 [place] [address]Dr. Yilan Rocha Epithelial cells LM Ql (Urine sed) NONE SEEN Normal NONE SEEN /RARE [facility] Comment on above: Performed By: #### U AMIC ####[facility] Lieyzmelwc4653 [place] [address]Dr. Yilan Rocha Glucose Ql (U) Negative Normal NEGATIVE [facility] Comment on above: Performed By: #### U AMIC ####[facility] Ctimecxdvb7[address] [place], [place] [address]Dr. Yilan Rocha Hemoglobin Ql (U) Negative Normal NEGATIVE The [facility] Comment on above: Performed By: #### U AMIC ####[facility] Odirpeqmpp82[address] [place], [place] [address]Dr. Yilan Rocha Ketones Ql (U) Negative Normal NEGATIVE [facility] Comment on above: Performed By: #### U AMIC ####[facility] Nyxmvnygam[address] [place], [place] [address]Dr. Yilan Rocha LEUKOCYTES Negative Normal NEGATIVE [facility] Comment on above: Performed By: #### U AMIC ####[facility] Ecavicvoay1085 [place] [address]Dr. Yilan Rocha MUCOUS NONE SEEN Normal NONE SEEN [facility] Comment on above: Performed By: #### U AMIC ####[facility] Mqwbldzgje9093 [place] [address]Dr. Yilan Rocha Nitrite Ql (U) Negative Normal NEGATIVE [facility] Comment on above: Performed By: #### U AMIC ####[facility] Tmcdbjnahy1105 [place] [address]Dr. Ricardo Rocha pH (U) 5.5 [pH] Normal 5-9 [facility] Comment on above: Performed By: #### U AMIC ####[facility] Yjvndbdstb5293 [place] [address]Dr. Ricardo Rocha RBC NONE SEEN Abnormal 0-2 [facility] Comment on above: Performed By: #### U AMIC ####[facility] Aqksupcsyk[address] [place], [place] [address]Dr. Ricardo Rocha SPEC GRAVITY 1.020 Normal 1.005-<=1.02 5 [facility] Comment on above: Performed By: #### U AMIC ####[facility] Lrvmsvmeqd8[address] [place], [place] [address]Dr. Ricardo Rocha UA PROTEIN Negative Normal NEGATIVE/ TRACE [facility] Comment on above: Performed By: #### U AMIC ####[facility] Xtpzcvggaq98[address] [place], [place] [address]Dr. Ricardo Rocha Urobilinogen Qn (U) 0.2 {Madeleine'U}/dL Normal 0.2 - 1. 0 [facility] Comment on above: Performed By: #### U AMIC ####[facility] Waqdcnrvgm29[address] [place], [place] [address]Dr. Ricardo Rocha WBC NONE SEEN Normal NONE SEEN [facility] Comment on above: Performed By: #### U AMIC ####[facility] Oxalkjnrie[address] [place], [place] [address]Dr. Ricardo Rocha CBC W MANUAL DIFFon 06-16-20 22 ATYPICAL LYMPH # Normal [facility] Comment on above: Performed By: #### C BCRED ####[facility] Bzzpekdpqb78[address] [place], [place] [address]Dr. Ricardo Rocha ATYPICAL LYMPH % Normal [facility] Comment on above: Performed By: #### C BCRED ####[facility] Quijqegqwg8087[address] [place], [place] [address]Dr. Ricardo Rocha BAND # 0.2 103/ul Normal 0.0-0.3 [facility] Comment on above: Performed By: #### C BCMAN ####[facility] Nfmzpraisk5274 [place] [id number]. Ricardo Rocha BAND % 2 % Normal 0-5 [facility] Comment on above: Performed By: #### C BCMAN ####[facility] Rmemfhmawj7229 [place] [phone]. Yimarcial Rocha BASOM # 0.00 103/ul Normal 0.00-0.10 [facility] Comment on above: Performed By: #### C BCMAN ####[facility] Tbifnznmzq7586 [place] [phone]. Yimarcial Rocha BASOM % 0.0 % Critically low 0.2-2.0 [facility] Comment on above: Performed By: #### C BCRED ####[facility] Knlgnhfiox7186 [place] [address]Dr. Yimarcial Rocha BLAST # Normal [facility] Comment on above: Performed By: #### C BCMAN ####[facility] Hxlohemqvc124[address] [place], [place] [address]Dr. Yimarcial Rocha BLAST % Normal [facility] Comment on above: Performed By: #### C BCMAN ####[facility] Lsjgvavjyf9231 [place] [address]Dr. Ricardo Rocha CORRECTED WBC Normal 4.0-11.0 [facility] Comment on above: Performed By: #### C BCMAN ####[facility] Cymyhjelqv[address] [place], [place] [address]Dr. Yimarcial Rocha EOS # 0.11 103/ul Normal 0.00-0.70 [facility] Comment on above: Performed By: #### C BCMAN ####[facility] Bdjxepovai27[address] [place], [place] [address]Dr. Ricardo Rocha EOS% 1.0 % Normal 0.9-7.0 [facility] Comment on above: Performed By: #### C BCMAN ####[facility] Mgwespfkmk87[address] [place], [place] [address]Dr. Ricardo Rocha HCT 24.2 % Critically low 36.0-48.0 [facility] Comment on above: Performed By: #### C BCRED ####[facility] Uhzmwsqlqf2624 [place] [id number]. Ricardo Rocha HGB 7.9 g/dl Critically low 12.0-16.0 [facility] Comment on above: Performed By: #### C BCRED ####[facility] Bakvwckxfb0468 [place] [phone]. Ricardo Rocha LYMPHM # 1.81 103/ul Normal 1.20-3.80 [facility] Comment on above: Performed By: #### C DWAINE ####[facility] Xzuknwzvxi1251 [place] [phone]. Ricardo Rocha LYMPHM% 16.0 % Critically low 20.5-60.0 [facility] Comment on above: Performed By: #### C DWAINE ####[facility] Bfqcwdxtac9133 [place] [address]Dr. Ricardo Rocha MCH 25.2 pg Critically low 26.7-34.0 [facility] Comment on above: Performed By: #### C DWAINE ####[facility] Qqghcetwbj5491 [place] [phone]. Ricardo Rocha MCHC 32.6 g/dl Normal 29.9-35.2 [facility] Comment on above: Performed By: #### C DWAINE ####[facility] Rrbljpafsq4070 [place] [phone]. Ricardo Rocha MCV 77.3 fL Critically low 81.0-99.0 [facility] Comment on above: Performed By: #### C BCRED ####[facility] Wqzydjhwda3635 [place] [phone]. Ricardo Rocha METAMYELOCYTE # 0.5 103/ul Normal [facility] Comment on above: Performed By: #### C BCRED ####[facility] Amthzpwtqa1382 [place] [phone]. Ricardo Rocha METAMYELOCYTE % 4 % Normal [facility] Comment on above: Performed By: #### C BCRED ####[facility] Fnzpbtvckc5672 [place], [place] [address]Xw. Ricardo Rocha MONOM# 0.45 103/ul Normal 0.30-0.80 [facility] Comment on above: Performed By: #### C DWAINE ####[facility] Dtcsgkknex2998 [place], [place] [address]Wp. Ricardo Rocha MONOM% 4.0 % Normal 1.7-12.0 [facility] Comment on above: Performed By: #### C DWAINE ####[facility] Fnymswvjys2251 [place], [place] [address]Wr. Ricardo Rocha MPV 10.4 fL Normal 9.5-13.5 [facility] Comment on above: Performed By: #### C DWAINE ####[facility] Wwzvqvhrlb4575 [place] [phone]. Ricardo Rocha MYELOCYTE # 0.5 103/ul Normal [facility] Comment on above: Performed By: #### C DWAINE ####[facility] Odvdmzsymg4851 [place] [phone]. Ricardo Rocha MYELOCYTE % 4 % Normal [facility] Comment on above: Performed By: #### C DWAINE ####[facility] Tkanqpxouw7856 [place] [phone]. Ricardo Rocha NRBC Normal [facility] Comment on above: Performed By: #### C DWAINE ####[facility] Ebzrzzvzwi7937 [place] [phone]. Ricardo Rocha PLT 325 103/ul Normal 150-450 [facility] Comment on above: Performed By: #### C DWAINE ####[facility] Vkiwqedrzs0694 [place], [place] [address]Zy. Ricardo Rocha RBC 3.13 106/ul Critically low 4.20-5.40 [facility] Comment on above: Performed By: #### C DWAINE ####[facility] Qylfeohlca0204 [place] [id number]. Ricardo Rocha RDW 13.7 % Normal 11.0-15.0 [facility] Comment on above: Performed By: #### C DWAINE ####[facility] Isytygxcms0990 [place] [phone]. Ricardo Rocha SEG # 7.80 103/ul Critically high 1.40-6.50 [facility] Comment on above: Performed By: #### C BCMAN ####[facility] Lldsxlbnyr8748 [place] [address]Dr. Ricardo Rocha SEG % 69.0 % Normal 43.0-75.0 [facility] Comment on above: Performed By: #### C BCMAN ####[facility] Ylmeilmpdk5083 [place] [address]Dr. Ricardo Rocha WBC 11.3 103/ul Critically high 4.0-11.0 [facility] Comment on above: Performed By: #### C DWAINE ####[facility] Ytxmmdsgvj9714 [place] [address]Dr. Ricardo Rocha PROF 14(COMP METB)on 022 Albumin [Mass/Vol] 1.7 g/dL Critically low 3.4-5.0 [facility] Comment on above: Performed By: #### C MP ####[facility] Yicqaomlhe13[address] [place], [place] [address]Dr. Ricardo Rocha Albumin/Globulin [Mass ratio] 0.4 {ratio} Normal [facility] Comment on above: Performed By: #### C MP ####[facility] Cjuhttcrbe7430 [place] [address]Dr. Ricardo Rocha ALP [Catalytic activity/Vol] 174 U/L Critically high 46-116 [facility] Comment on above: Performed By: #### C MP ####[facility] Wjnaepjjsi6783 [place] [address]Dr. Ricardo Rocha ALT [Catalytic activity/Vol] 14 U/L Normal 14-59 [facility] Comment on above: Performed By: #### C MP ####[facility] Mxtitztjge2242 [place] [address]Dr. Ricardo Rocha Anion gap [Moles/Vol] 10.8 mmol/L Normal [facility] Comment on above: Performed By: #### C MP ####[facility] Mlnwqxcdet9645 [place] [id number]. Ricardo Rocha AST [Catalytic activity/Vol] 13 U/L Critically low 15-37 [facility] Comment on above: Performed By: #### C MP ####[facility] Bmbojrfyrr4210 [place] [phone]. Ricardo Rocha Bilirubin [Mass/Vol] 0.3 mg/dL Normal 0.2-1.0 [facility] Comment on above: Performed By: #### C MP ####[facility] Prodpunzmt8714 [place] [address]Dr. Ricardo Rocha Calcium [Mass/Vol] 8.2 mg/dL Critically low 8.5-10.1 [facility] Comment on above: Performed By: #### C MP ####[facility] Wezoxzwjgq89[address] [place], [place] [address]Dr. Ricardo Rocha Chloride [Moles/Vol] 104 mmol/L Normal 98-107 [facility] Comment on above: Performed By: #### C MP ####[facility] Ditjsjssco82[address] [place], [place] [address]Dr. Ricardo Rocha CO2 [Moles/Vol] 22.4 mmol/L Normal 21.0-32.0 [facility] Comment on above: Performed By: #### C MP ####[facility] Slxrduhbqg9659[address] [place], [place] [address]Dr. Ricardo Rocha Creatinine [Mass/Vol] 1.29 mg/dL Critically high 0.55-1.02 [facility] Comment on above: Performed By: #### C MP ####[facility] Wkvyfbilzd6471 [place] [id number]. Ricardo Aj EGFR-AF BHUTANESE 50 mL/min/1.73m2 Critically low >=60 [facility] Comment on above: Performed By: #### C MP ####[facility] Nwjyxkqujr809[address] [place], [place] [address]Dr. Nanomarcial Aj EGFR-NON AF BHUTANESE 42 mL/min/1.73m2 Critically low >=60 [facility] Comment on above: Performed By: #### C MP ####[facility] Vaeujhgqvx3355 [place] [phone]. Ricardo Rocha Globulin (S) [Mass/Vol] 4.8 g/dL Normal [facility] Comment on above: Performed By: #### C MP ####[facility] Mjccpkipju9369 [place] [address]Dr. Ricardo Rocha Glucose [Mass/Vol] 262 mg/dL Critically high 74-[address] [facility] Comment on above: Performed By: #### C MP ####[facility] Gshvxrglkv1125 [place] [address]Dr. Ricardo Rocha Potassium [Moles/Vol] 3.2 mmol/L Critically low 3.5-5.1 [facility] Comment on above: Performed By: #### C MP ####[facility] Qcirlwmmpn9097 [place] [address]Dr. Ricardo Rocha Protein [Mass/Vol] 6.5 g/dL Normal 6.4-8.2 [facility] Comment on above: Performed By: #### C MP ####[facility] Xebdociupy2745 [place] [address]Dr. Ricardo Rocha Sodium [Moles/Vol] 134 mmol/L Critically low 136-145 Th [facility] Comment on above: Performed By: #### C MP ####[facility] Bkcmqinjbu2544 [place] [address]Dr. Ricardo Aj Urea nitrogen [Mass/Vol] 20.0 mg/dL Critically high 7.0-18.0 [facility] Comment on above: Performed By: #### C MP ####[facility] Exmwpangxl8367 [place] [address]Dr. Ricardo Aj Urea nitrogen/Creatinine [Mass ratio] 15.5 mg/mg Normal [facility] Comment on above: Performed By: #### C MP ####[facility] Gsdbdxgoie3986 [place] [address]Dr. Ricardo Aj CBC AUTO DIFFon 06-15-2022 BASO # 0.1 103/ul Normal 0.0-0.1 [facility] Comment on above: Performed By: #### C BC ####[facility] Ypibibnchw3871 [place] [address]Dr. Ricardo Aj Basophils/100 WBC (Bld) 0.7 % Normal 0.2-2.0 [facility] Comment on above: Performed By: #### C BC ####[facility] Xxevecpijr08[address] [place], [place] [address]Dr. Ricardo Rocha EO # 0.1 103/ul Normal 0.0-0.7 [facility] Comment on above: Performed By: #### C BC ####[facility] Wmqcmdwzwf1280[address] [place], [place] [address]Dr. Ricardo Aj Eosinophils/100 WBC (Bld) 0.7 % Critically low 0.9-7.0 [facility] Comment on above: Performed By: #### C BC ####[facility] Cytjtsttrj369[address] [place], [place] [address]Dr. Ricardo Aj Erythrocyte distribution width (RBC) [Ratio] 13.7 % Normal 11.0-15.0 [facility] Comment on above: Performed By: #### C BC ####[facility] Pvzhsdrcrz962[address] [place], [place] [address]Dr. Ricardo Rocha Hematocrit (Bld) [Volume fraction] 26.7 % Critically low 36.0-48.0 [facility] Comment on above: Performed By: #### C BC ####[facility] Wqdptbkkox413[address] [place], [place] [address]Dr. Ricardo Rocha Hemoglobin (Bld) [Mass/Vol] 8.4 g/dL Critically low 12.0-16.0 [facility] Comment on above: Performed By: #### C BC ####[facility] Etnkntwizv904[address] [place], [place] [address]Dr. Ricardo Rocha IG # 0.83 10e3/ul Critically high 0.00-0.03 [facility] Comment on above: Performed By: #### C BC ####[facility] Gfddrumhkq86264[address] [place], [place] [address]Dr. Ricardo Rocha IG % 6.2 % Critically high 0.0-0.5 [facility] Comment on above: Performed By: #### C BC ####[facility] Ruxrlxidba1965 [place] [address]DrIrina Rocha LYMPH # 1.3 103/ul Normal 1.2-3.8 [facility] Comment on above: Performed By: #### C BC ####[facility] Ooysvfsijn6623 [place] [address]DrIrina Rocha Lymphocytes/100 WBC (Bld) 9.6 % Critically low 20.5-60.0 [facility] Comment on above: Performed By: #### C BC ####[facility] Wvpzrweatw20[address] [place], [place] [address]DrIrina Rocha MANUAL DIFF REQ NO Normal [facility] Comment on above: Performed By: #### C BC ####[facility] Abbevrokls[address] [place], [place] [address]DrIrina Rocha MCH (RBC) [Entitic mass] 25.1 pg Critically low 26.7-34.0 [facility] Comment on above: Performed By: #### C BC ####[facility] Btgojfzjuh613[address] [place], [place] [address]DrIrina Rocha MCHC (RBC) [Mass/Vol] 31.5 g/dL Normal 29.9-35.2 [facility] Comment on above: Performed By: #### C BC ####[facility] Bdxntopynw524[address] [place], [place] [address]DrIrina Rocha MCV (RBC) [Entitic vol] 79.7 fL Critically low 81.0-99.0 [facility] Comment on above: Performed By: #### C BC ####[facility] Twfgqwsuon790[address] [place], [place] [address]DrIrina Rocha MONO # 1.0 103/ul Critically high 0.3-0.8 [facility] Comment on above: Performed By: #### C BC ####[facility] Ccjhdicdrv815[address] [place], [place] [address]DrIrina Rocha Monocytes/100 WBC (Bld) 7.3 % Normal 1.7-12.0 [facility] Comment on above: Performed By: #### C BC ####[facility] Fhyymxovim4371 [place] [address]Dr. Ricardo Rocha NEUT # 10.2 103/ul Critically high 1.4-6.5 [facility] Comment on above: Performed By: #### C BC ####[facility] Zsktgkrlpj05[address] [place], [place] [address]Dr. Ricardo Rocha Neutrophils/100 WBC (Bld) 75.5 % Critically high 43.0-75.0 [facility] Comment on above: Performed By: #### C BC ####[facility] Epzaqbcxgr217[address] [place], [place] [address]Dr. Ricardo Rocha Platelet mean volume (Bld) [Entitic vol] 11.8 fL Normal 9.5-13.5 [facility] Comment on above: Performed By: #### C BC ####[facility] Bdhhqfjzjj68[address] [place], [place] [address]Dr. Ricardo Rocha PLT 208 103/ul Normal 150-450 [facility] Comment on above: Performed By: #### C BC ####[facility] Sbgemwhhih9[address] [place], [place] [address]Dr. Ricardo Rocha RBC 3.35 106/ul Critically low 4.20-5.40 [facility] Comment on above: Performed By: #### C BC ####[facility] Zteapujyac83[address] [place], [place] [address]Dr. Ricardo Rocha WBC 13.5 103/ul Critically high 4.0-11.0 [facility] Comment on above: Performed By: #### C BC ####[facility] Dgkbvnrwpa3824[address] [place], [place] [address]Dr. Ricardo Aj CULTURE BLOODon 06-15-2022 Microscopic examination of blood, culture Culture Observations: NO GROWTH AT 5 DAYS Normal [facility] Comment on above: Performed By: #### B LDCX2 ####[facility] Ovmlmzmglo00[address] [place], [place] [address]Dr. Ricardo Rocha Microscopic examination of blood, culture Culture Observations: NO GROWTH AT 5 DAYS Normal [facility] Comment on above: Performed By: #### B LDCX1 ####[facility] Ehlwugtbzz[address] [place], [place] [address]DrIrina Ricardo Rocha Covid-19 PCR (CVDTB)on 05-22 SARS-CoV-2 (COVID-19) RNA ADRIEL+probe Ql (Unsp spec) Not detected Normal NOT DETECTED [facility] Comment on above: Result Comment: When [...] for this test is supported by the [place] [employer] [place] [employer]'s declaration that [...] be used). Performed By: #### C VDTBH ####[facility] Ftxakdgwfx3340 [place] [address]Dr. Ricardo Aj POINT OF CARE GLUCOSEon 05-22 Glucose [Mass/Vol] 366 mg/dL Critically high -106 [facility] Comment on above: Performed By: #### P OCGLUC ####[facility] Hxxuwabmet0398 [place] [address]Dr. Ricardo Rocha Glucose [Mass/Vol] 229 mg/dL Critically high -106 [facility] Comment on above: Performed By: #### P OCGLUC ####[facility] Qwnqygscnx4[address] [place], [place] [address]Dr. Ricardo Rocha Glucose [Mass/Vol] 258 mg/dL Critically high -106 [facility] Comment on above: Performed By: #### P OCGLUC ####[facility] Mkoobhijdr9344 [place] [address]Dr. Ricardo Rocha PROF 14(COMP METB)on 022 Albumin [Mass/Vol] 1.8 g/dL Critically low 3.4-5.0 [facility] Comment on above: Performed By: #### C MP ####[facility] Rsokbobxos1363 [place] [address]Dr. Ricardo Rocha Albumin/Globulin [Mass ratio] 0.4 {ratio} Normal [facility] Comment on above: Performed By: #### C MP ####[facility] Mqvbrtlujg[address] [place], [place] [address]Dr. Ricardo Rocha ALP [Catalytic activity/Vol] 196 U/L Critically high 46-116 [facility] Comment on above: Performed By: #### C MP ####[facility] Yawturvnzw8[address] [place], [place] [address]Dr. Ricardo Rocha ALT [Catalytic activity/Vol] 18 U/L Normal 14-59 [facility] Comment on above: Performed By: #### C MP ####[facility] Muimcvnjgx67[address] [place], [place] [address]Dr. Ricardo Rocha Anion gap [Moles/Vol] 16.3 mmol/L Normal [facility] Comment on above: Performed By: #### C MP ####[facility] Bilxgmlgsy4547[address] [place], [place] [address]Dr. Ricardo Rocha AST [Catalytic activity/Vol] 22 U/L Normal 15-37 [facility] Comment on above: Performed By: #### C MP ####[facility] Qazigmllkj412[address] [place], [place] [address]Dr. Ricardo Rocha Bilirubin [Mass/Vol] 0.4 mg/dL Normal 0.2-1.0 [facility] Comment on above: Performed By: #### C MP ####[facility] Iexvjquyeb4[address] [place], [place] [address]Dr. Ricardo Rocha Calcium [Mass/Vol] 8.2 mg/dL Critically low 8.5-10.1 [facility] Comment on above: Performed By: #### C MP ####[facility] Mtruoazhbg9042 [place] [address]Dr. Ricardo Aj Chloride [Moles/Vol] 103 mmol/L Normal 98-107 [facility] Comment on above: Performed By: #### C MP ####[facility] Crjgoxkgrh4665 [place] [id number]. Ricardo Aj CO2 [Moles/Vol] 19.0 mmol/L Critically low 21.0-32.0 [facility] Comment on above: Performed By: #### C MP ####[facility] Ahjmstwshn8122 [place] [address]Dr. Ricardo Aj Creatinine [Mass/Vol] 1.32 mg/dL Critically high 0.55-1.02 [facility] Comment on above: Performed By: #### C MP ####[facility] Kgxprxdupa988[address] [place], [place] [address]Dr. Ricardo Aj EGFR-AF BHUTANESE 49 mL/min/1.73m2 Critically low >=60 [facility] Comment on above: Performed By: #### C MP ####[facility] Qnqxbcnoqo[address] [place], [place] [address]Dr. Ricardo Aj EGFR-NON AF BHUTANESE 41 mL/min/1.73m2 Critically low >=60 [facility] Comment on above: Performed By: #### C MP ####[facility] Jmcpdesaih1449 [place] [address]Dr. Nanomarcial Rocha Globulin (S) [Mass/Vol] 5.0 g/dL Normal [facility] Comment on above: Performed By: #### C MP ####[facility] Mksajsfitl8954 [place] [address]Dr. Ricardo Rocha Glucose [Mass/Vol] 228 mg/dL Critically high 74-[address] [facility] Comment on above: Performed By: #### C MP ####[facility] Fqqvbocquk3050 [place] [address]Dr. Ricardo Rocha Potassium [Moles/Vol] 3.3 mmol/L Critically low 3.5-5.1 [facility] Comment on above: Performed By: #### C MP ####[facility] Iumxlfhrgh8960 [place] [address]Dr. Ricardo Rocha Protein [Mass/Vol] 6.8 g/dL Normal 6.4-8.2 [facility] Comment on above: Performed By: #### C MP ####[facility] Evmxixvisf896[address] [place], [place] [address]Dr. Ricardo Rocha Sodium [Moles/Vol] 135 mmol/L Critically low 136-145 Th [facility] Comment on above: Performed By: #### C MP ####[facility] Oyrlhipgym865[address] [place], [place] [address]Dr. Ricardo Rocha Urea nitrogen [Mass/Vol] 23.0 mg/dL Critically high 7.0-18.0 [facility] Comment on above: Performed By: #### C MP ####[facility] Qeuteojdeg7511[address] [place], [place] [address]Dr. Ricardo Rocha Urea nitrogen/Creatinine [Mass ratio] 17.4 mg/mg Normal [facility] Comment on above: Performed By: #### C MP ####[facility] Jiupanuzkn2933[address] [place], [place] [address]Dr. 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 Ricardo Rocha Clarity (U) CLEAR Normal CLEAR [facility] Comment on above: Performed By: #### U MICRO, UACSIND ####[facility] Cjzuaplqqy83[address] [place], [place] [address]Dr. Ricardo Rocha Color (U) LT. YELLOW Normal YELLOW [facility] Comment on above: Performed By: #### U MICRO, UACSIND ####[facility] Mjelotfxcj412[address] [place], [place] [address]Dr. Ricardo Rocha Glucose Ql (U) 250 mg/dl Abnormal NEGATIVE [facility] Comment on above: Performed By: #### U MICRO, UACSIND ####[facility] Dnjhqvasjm445[address] [place], [place] [address]Dr. Ricardo Rocha Hemoglobin Ql (U) TRACE-LYSED Abnormal NEGATIVE [facility] Comment on above: Performed By: #### U MICRO, UACSIND ####[facility] Hgyukujsmp799349 [address] [place], [place] [address]Dr. Ricardo Rocha Ketones Ql (U) 15 mg/dl Abnormal NEGATIVE [facility] Comment on above: Performed By: #### U MICRO, UACSIND ####[facility] Lsqvfhjvhm102[address] [place], [place] [address]Dr. Ricardo Rocha LEUKOCYTES Negative Normal NEGATIVE [facility] Comment on above: Performed By: #### U MICRO, UACSIND ####[facility] Blssymmhtb5039[address] [place], [place] [address]Dr. Ricardo Rocha Nitrite Ql (U) Negative Normal NEGATIVE [facility] Comment on above: Performed By: #### U MICRO, UACSIND ####[facility] Kqchsaehnv6167[address] [place], [place] [address]Dr. Ricardo Rocha pH (U) 6.0 [pH] Normal 5-9 [facility] Comment on above: Performed By: #### U MICRO, UACSIND ####[facility] Mulfqhtfag7249[address] [place], [place] [address]Dr. Ricardo Rocha SPEC GRAVITY 1.010 Normal 1.005-<=1.02 5 [facility] Comment on above: Performed By: #### U MICRO, UACSIND ####[facility] Dqebihopcy38[address] [place], [place] [address]Dr. Ricardo Rocha UA PROTEIN Negative Normal NEGATIVE/ TRACE [facility] Comment on above: Performed By: #### U MICRO, UACSIND ####[facility] Lhhayocdlr796[address] [place], [place] [address]Dr. Ricardo Rocha UR MICRO IND INDICATED Normal [facility] Comment on above: Performed By: #### U MICRO, UACSIND ####[facility] Fdhitsiwpz2478[address] [place], [place] [address]Dr. Ricardo Rocha Urobilinogen Qn (U) 0.2 {Madeleine'U}/dL Normal 0.2 - 1. 0 [facility] Comment on above: Performed By: #### U MICRO, UACSIND ####[facility] Dedntbnbce0513 [place] [address]Dr. Ricardo Rocha URINE MICROSCOPIC ONLYon BACTERIA NONE SEEN Normal NONE SEEN [facility] Comment on above: Performed By: #### U MICRO, UACSIND ####[facility] Jaakzfnsjh6529 [place] [address]Dr. Ricardo Rocha Bacteria identified Cx Nom (U) NOT INDICATED Normal [facility] Comment on above: Performed By: #### U MICRO, UACSIND ####[facility] Qsuuofvrrq1717 [place] [address]Dr. Ricardo Rocha CAST NONE SEEN Normal NONE SEEN [facility] Comment on above: Performed By: #### U MICRO, UACSIND ####[facility] Jbjwhyjhap2822 [place] [address]Dr. Ricardo Rocha Crystals LM Nom (Urine sed) NONE SEEN Normal NONE SEEN [facility] Comment on above: Performed By: #### U MICRO, UACSIND ####[facility] Kcepwvpjuk0449 [place] [address]Dr. Ricardo Rocha Epithelial cells LM Ql (Urine sed) FEW Abnormal NONE SEEN /RARE [facility] Comment on above: Performed By: #### U MICRO, UACSIND ####[facility] Shzfsfxwxx1056 [place] [address]Dr. Ricardo Rocha MUCOUS NONE SEEN Normal NONE SEEN [facility] Comment on above: Performed By: #### U MICRO, UACSIND ####[facility] Zqhyojylnp12[address] [place], [place] [address]Dr. Ricardo Rocha RBC 2-5 Abnormal 0-2 [facility] Comment on above: Performed By: #### U MICRO, UACSIND ####[facility] Dmfkosibnf1485[address] [place], [place] [address]Dr. Ricardo Rocha WBC 2-5 Abnormal NONE SEEN [facility] Comment on above: Performed By: #### U MICRO, UACSIND ####[facility] Mwetiadwts0524 [place] [address]Dr. Ricardo Aj YEAST PRESENT Abnormal NONE SEEN [facility] Comment on above: Performed By: #### U MICRO, UACSIND ####[facility] Niwpyvxsxy9113 [place] [id number]. Ricardo Rocha CBC AUTO DIFFon 06-14-2022 BASO # 0.0 103/ul Normal 0.0-0.1 [facility] Comment on above: Performed By: #### C BC ####[facility] Ndtwnambnk5279[address] [place], [place] [address]Dr. Ricardo Rocha Basophils/100 WBC (Bld) 0.4 % Normal 0.2-2.0 [facility] Comment on above: Performed By: #### C BC ####[facility] Vbwffzcsez7035[address] [place], [place] [address]Dr. Ricardo Rocha EO # 0.0 103/ul Normal 0.0-0.7 [facility] Comment on above: Performed By: #### C BC ####[facility] Yfsdslwcku7727[address] [place], [place] [address]Dr. Ricardo Rocha Eosinophils/100 WBC (Bld) 0.4 % Critically low 0.9-7.0 [facility] Comment on above: Performed By: #### C BC ####[facility] Qglahopqup0717[address] [place], [place] [address]Dr. Ricardo Rocha Erythrocyte distribution width (RBC) [Ratio] 13.8 % Normal 11.0-15.0 [facility] Comment on above: Performed By: #### C BC ####[facility] Wsvkmdzjgv3413[address] [place], [place] [address]Dr. Ricardo Rocha Hematocrit (Bld) [Volume fraction] 26.2 % Critically low 36.0-48.0 [facility] Comment on above: Performed By: #### C BC ####[facility] Ktmifarzvy1185[address] [place], [place] [address]Dr. Ricardo Rocha Hemoglobin (Bld) [Mass/Vol] 8.3 g/dL Critically low 12.0-16.0 [facility] Comment on above: Performed By: #### C BC ####[facility] Lwlwjtnyqe5489 [place] [address]DrIrina Rocha IG # 0.24 10e3/ul Critically high 0.00-0.03 [facility] Comment on above: Performed By: #### C BC ####[facility] Bibdbvxhoz0564 [place] [address]DrIrina Rocha IG % 2.3 % Critically high 0.0-0.5 [facility] Comment on above: Performed By: #### C BC ####[facility] Mabdoktebz30264[address] [place], [place] [address]DrIrina Rocha LYMPH # 1.1 103/ul Critically low 1.2-3.8 [facility] Comment on above: Performed By: #### C BC ####[facility] Sodydbaorz3578[address] [place], [place] [address]DrIrina Rocha Lymphocytes/100 WBC (Bld) 10.2 % Critically low 20.5-60.0 [facility] Comment on above: Performed By: #### C BC ####[facility] Arfajkpzrg20[address] [place], [place] [address]DrIrina Rocha MANUAL DIFF REQ NO Normal [facility] Comment on above: Performed By: #### C BC ####[facility] Jfcxhjoawy2681 [place] [address]DrIrina Rocha MCH (RBC) [Entitic mass] 25.5 pg Critically low 26.7-34.0 [facility] Comment on above: Performed By: #### C BC ####[facility] Rfajkthggh7245[address] [place], [place] [address]DrIrina Rocha MCHC (RBC) [Mass/Vol] 31.7 g/dL Normal 29.9-35.2 [facility] Comment on above: Performed By: #### C BC ####[facility] Sdiobmgrhm6159[address] [place], [place] [address]DrIrina Rocha MCV (RBC) [Entitic vol] 80.6 fL Critically low 81.0-99.0 [facility] Comment on above: Performed By: #### C BC ####[facility] Yuyzezgeuq4305 [place] [address]Dr. Ricardo Rocha MONO # 0.7 103/ul Normal 0.3-0.8 [facility] Comment on above: Performed By: #### C BC ####[facility] Llliphhfzp1761 [place] [address]Dr. Ricardo Rocha Monocytes/100 WBC (Bld) 6.7 % Normal 1.7-12.0 [facility] Comment on above: Performed By: #### C BC ####[facility] Cycktqpdkp5040[address] [place], [place] [address]Dr. Ricardo Rocha NEUT # 8.5 103/ul Critically high 1.4-6.5 [facility] Comment on above: Performed By: #### C BC ####[facility] Hqgchgshvl5433[address] [place], [place] [address]Dr. Nanomarcial Rocha Neutrophils/100 WBC (Bld) 80.0 % Critically high 43.0-75.0 [facility] Comment on above: Performed By: #### C BC ####[facility] Xidyuespqs7560[address] [place], [place] [address]Dr. Nanomarcial Rocha Platelet mean volume (Bld) [Entitic vol] 12.1 fL Normal 9.5-13.5 [facility] Comment on above: Performed By: #### C BC ####[facility] Tpyoyfaajx0369[address] [place], [place] [address]Dr. Ricardo Rocha PLT 173 103/ul Normal 150-450 [facility] Comment on above: Performed By: #### C BC ####[facility] Gzekeuvbhq801[address] [place], [place] [address]Dr. Ricardo Rocha RBC 3.25 106/ul Critically low 4.20-5.40 [facility] Comment on above: Performed By: #### C BC ####[facility] Giqyokqigc0969[address] [place], [place] [address]Dr. Ricardo Rocha WBC 10.6 103/ul Normal 4.0-11.0 [facility] Comment on above: Performed By: #### C BC ####[facility] Mplkgdeidh5120 [place] [address]Dr. Ricardo Rocha POINT OF CARE GLUCOSEon 05-22 Glucose [Mass/Vol] 237 mg/dL Critically high 74-106 [facility] Comment on above: Performed By: #### P OCGLUC ####[facility] Kbihwbmucs5131 [place] [address]Dr. Ricardo Rocha Glucose [Mass/Vol] 296 mg/dL Critically high 74-106 [facility] Comment on above: Performed By: #### P OCGLUC ####[facility] Lbajmqwjsb837[address] [place], [place] [address]Dr. Ricardo Rocha Glucose [Mass/Vol] 406 mg/dL Critically high 74-106 [facility] Comment on above: Performed By: #### P OCGLUC ####[facility] Qgxvozhmhw345149 [address] [place], [place] [address]Dr. Ricardo Rocha Glucose [Mass/Vol] 447 mg/dL Critically high 74-106 [facility] Comment on above: Performed By: #### P OCGLUC ####[facility] Gxudngqgpi0750[address] [place], [place] [address]Dr. Ricardo Rocha Glucose [Mass/Vol] 319 mg/dL Critically high 74-106 [facility] Comment on above: Performed By: #### P OCGLUC ####[facility] Ajogwwkvur475349 [address] [place], [place] [address]Dr. Ricardo Aj PROF 14(COMP METB)on 022 Albumin [Mass/Vol] 1.6 g/dL Critically low 3.4-5.0 [facility] Comment on above: Performed By: #### C MP ####[facility] Jsmzjrleaq780[address] [place], [place] [address]Dr. Ricardo Aj Albumin/Globulin [Mass ratio] 0.3 {ratio} Normal [facility] Comment on above: Performed By: #### C MP ####[facility] Oqfoxiuzqr6611[address] [place], [place] [address]Dr. Ricardo Rocha ALP [Catalytic activity/Vol] 201 U/L Critically high 46-116 [facility] Comment on above: Performed By: #### C MP ####[facility] Htpgolxpmp2353 [place] [address]Dr. Ricardo Rocha ALT [Catalytic activity/Vol] 23 U/L Normal 14-59 [facility] Comment on above: Performed By: #### C MP ####[facility] Tvtpwkhmsu8148[address] [place], [place] [address]Dr. Ricardo Aj Anion gap [Moles/Vol] 16.0 mmol/L Normal [facility] Comment on above: Performed By: #### C MP ####[facility] Tosvbavowv2711[address] [place], [place] [address]Dr. Ricardo Aj AST [Catalytic activity/Vol] 21 U/L Normal 15-37 [facility] Comment on above: Performed By: #### C MP ####[facility] Tojsbfnyxh6227[address] [place], [place] [address]Dr. Ricardo Aj Bilirubin [Mass/Vol] 0.4 mg/dL Normal 0.2-1.0 [facility] Comment on above: Performed By: #### C MP ####[facility] Kpyratefak1118[address] [place], [place] [address]Dr. Ricardo Rocha Calcium [Mass/Vol] 7.6 mg/dL Critically low 8.5-10.1 [facility] Comment on above: Performed By: #### C MP ####[facility] Jqykcmpszo137[address] [place], [place] [address]Dr. Nanomarcial Rocha Chloride [Moles/Vol] 105 mmol/L Normal 98-107 [facility] Comment on above: Performed By: #### C MP ####[facility] Chjcvvjdng5759[address] [place], [place] [address]Dr. Ricardo Rocha CO2 [Moles/Vol] 17.3 mmol/L Critically low 21.0-32.0 [facility] Comment on above: Performed By: #### C MP ####[facility] Ckbfvqdyya4235[address] [place], [place] [address]DrIrina Rocha Creatinine [Mass/Vol] 1.54 mg/dL Critically high 0.55-1.02 [facility] Comment on above: Performed By: #### C MP ####[facility] Qieaxyzzjd5071 [place] [address]Dr. Nanomarcial Aj EGFR-AF BHUTANESE 41 mL/min/1.73m2 Critically low >=60 [facility] Comment on above: Performed By: #### C MP ####[facility] Nsdfzbbqyq1618 [place] [address]Dr. Ricardo Rocha EGFR-NON AF BHUTANESE 34 mL/min/1.73m2 Critically low >=60 [facility] Comment on above: Performed By: #### C MP ####[facility] Mpyakedpkz848[address] [place], [place] [address]Dr. Ricardo Rocha Globulin (S) [Mass/Vol] 4.7 g/dL Normal [facility] Comment on above: Performed By: #### C MP ####[facility] Ekthcuqszo7277 [place] [address]Dr. Ricardo Rocha Glucose [Mass/Vol] 277 mg/dL Critically high 74-[address] [facility] Comment on above: Performed By: #### C MP ####[facility] Bluxhxiutn3745 [place] [address]DrIirna Rocha Potassium [Moles/Vol] 3.3 mmol/L Critically low 3.5-5.1 [facility] Comment on above: Performed By: #### C MP ####[facility] Hpaumxwxok2971 [place] [address]Dr. Ricardo Rocha Protein [Mass/Vol] 6.3 g/dL Critically low 6.4-8.2 Th [facility] Comment on above: Performed By: #### C MP ####[facility] Tmziptjwae4680[address] [place], [place] [address]Dr. Ricardo Rocha Sodium [Moles/Vol] 135 mmol/L Critically low 136-145 Th [facility] Comment on above: Performed By: #### C MP ####[facility] Sbnwhwxtoq8413[address] [place], [place] [address]Dr. Ricardo Rocha Urea nitrogen [Mass/Vol] 29.0 mg/dL Critically high 7.0-18.0 [facility] Comment on above: Performed By: #### C MP ####[facility] Kbsubnyago6060[address] [place], [place] [address]Dr. Ricardo Rocha Urea nitrogen/Creatinine [Mass ratio] 18.8 mg/mg Normal [facility] Comment on above: Performed By: #### C MP ####[facility] Emvkfvipfw579[address] [place], [place] [address]Dr. Ricardo Rocha CBC AUTO DIFFon 06-13-2022 BASO # 0.0 103/ul Normal 0.0-0.1 [facility] Comment on above: Performed By: #### C BC ####[facility] Ccaogqoguu1398[address] [place], [place] [address]Dr. Ricardo Aj Basophils/100 WBC (Bld) 0.2 % Normal 0.2-2.0 [facility] Comment on above: Performed By: #### C BC ####[facility] Vvprfhdowo723[address] [place], [place] [address]Dr. Ricardo Rocha EO # 0.1 103/ul Normal 0.0-0.7 [facility] Comment on above: Performed By: #### C BC ####[facility] Rexfpxuzob7278[address] [place], [place] [address]Dr. Ricardo Aj Eosinophils/100 WBC (Bld) 0.6 % Critically low 0.9-7.0 [facility] Comment on above: Performed By: #### C BC ####[facility] Ducrhiccrk8439[address] [place], [place] [address]Dr. Ricardo Rocha Erythrocyte distribution width (RBC) [Ratio] 14.2 % Normal 11.0-15.0 [facility] Comment on above: Performed By: #### C BC ####[facility] Dgtyawguyf17[address] [place], [place] [address]Dr. Ricardo Rocha Hematocrit (Bld) [Volume fraction] 27.9 % Critically low 36.0-48.0 [facility] Comment on above: Performed By: #### C BC ####[facility] Ebdfavxqio4043 [place] [id number]. Ricardo Rocha Hemoglobin (Bld) [Mass/Vol] 8.6 g/dL Critically low 12.0-16.0 [facility] Comment on above: Performed By: #### C BC ####[facility] Wxclsoaxqf2723 [place] [id number]. Ricardo Rocha IG # 0.08 10e3/ul Critically high 0.00-0.03 [facility] Comment on above: Performed By: #### C BC ####[facility] Fkpknrzcda2851 [place] [id number]. Ricardo Rocha IG % 0.8 % Critically high 0.0-0.5 [facility] Comment on above: Performed By: #### C BC ####[facility] Tmlbvdxuny4064 [place] [address]Dr. Ricardo Rocha LYMPH # 0.9 103/ul Critically low 1.2-3.8 [facility] Comment on above: Performed By: #### C BC ####[facility] Dyirejqxjc1309 [place] [address]Dr. Ricardo Rocha Lymphocytes/100 WBC (Bld) 8.9 % Critically low 20.5-60.0 [facility] Comment on above: Performed By: #### C BC ####[facility] Zjynsrcyjc0037 [place] [address]Dr. Ricardo Rocha MANUAL DIFF REQ NO Normal [facility] Comment on above: Performed By: #### C BC ####[facility] Dizspttfkh5395 [place] [address]Dr. Ricardo Rocha MCH (RBC) [Entitic mass] 25.1 pg Critically low 26.7-34.0 [facility] Comment on above: Performed By: #### C BC ####[facility] Bigedtltjk42[address] [place], [place] [address]Dr. Ricardo Rocha MCHC (RBC) [Mass/Vol] 30.8 g/dL Normal 29.9-35.2 [facility] Comment on above: Performed By: #### C BC ####[facility] Dqmkuwvfnf7987 [place] [id number]. Ricardo Rocha MCV (RBC) [Entitic vol] 81.6 fL Normal 81.0-99.0 [facility] Comment on above: Performed By: #### C BC ####[facility] Mfveewsoxr8118 [place] [id number]. Ricardo Rocha MONO # 0.6 103/ul Normal 0.3-0.8 [facility] Comment on above: Performed By: #### C BC ####[facility] Nqbmsonpwp6816 [place] [id number]. Ricardo Rocha Monocytes/100 WBC (Bld) 5.7 % Normal 1.7-12.0 [facility] Comment on above: Performed By: #### C BC ####[facility] Ytyxrrfxhh3166 [place] [address]Dr. Ricardo Rocha NEUT # 8.4 103/ul Critically high 1.4-6.5 [facility] Comment on above: Performed By: #### C BC ####[facility] Kuqktipuoj9876 [place] [id number]. Ricardo Rocha Neutrophils/100 WBC (Bld) 83.8 % Critically high 43.0-75.0 [facility] Comment on above: Performed By: #### C BC ####[facility] Njzmkkrbhc0841 [place] [id number]. Ricardo Rocha Platelet mean volume (Bld) [Entitic vol] 12.1 fL Normal 9.5-13.5 [facility] Comment on above: Performed By: #### C BC ####[facility] Krwcgercle4820 [place] [id number]. Ricardo Rocha PLT 149 103/ul Critically low 150-450 [facility] Comment on above: Performed By: #### C BC ####[facility] Ycyefjaate3222 [place] [id number]. Ricardo Rocha RBC 3.42 106/ul Critically low 4.20-5.40 [facility] Comment on above: Performed By: #### C BC ####[facility] Bpspiidxkx6788 [place] [id number]. Ricardo Rocha WBC 10.0 103/ul Normal 4.0-11.0 [facility] Comment on above: Performed By: #### C BC ####[facility] Dtumbtehdh97[address] [place], [place] [address]Dr. Ricardo Rocha CULTURE OTHERon 06-13-2022 CULTURE OTHER Normal [facility] Comment on above: Performed By: #### O THCX ####[facility] Imoctpibpc50[address] [place], [place] [address]Dr. Ricardo Rocha CULTURE OTHER Normal [facility] Comment on above: Performed By: #### O THCX ####[facility] Mhuazvdpei[address] [place], [place] [address]Dr. Ricardo Rocha CULTURE OTHER Normal [facility] Comment on above: Performed By: #### O THCX ####[facility] Boqgjsapfl[address] [place], [place] [address]Dr. Ricardo Rocha GI PANEL (PCR)on 06-13-2022 Adenovirus F 40/41 Not detected Normal NOT DETECTED [facility] Comment on above: Performed By: #### G IPANEL ####[facility] Gyrcvvsxot[address] [place], [place] [address]Dr. Ricardo Rocha Astrovirus Not detected Normal NOT DETECTED [facility] Comment on above: Performed By: #### G IPANEL ####[facility] Prifnjfvrz[address] [place], [place] [address]Dr. Nanomarcial Aj C. Diff toxin A/B Not detected Normal NOT DETECTED [facility] Comment on above: Performed By: #### G IPANEL ####[facility] Iroorlasyk[address] [place], [place] [address]Dr. Ricardo Rocha Campylobacter Not detected Normal NOT DETECTED The [facility] Comment on above: Performed By: #### G IPANEL ####[facility] Oklzwphezc299[address] [place], [place] [address]Dr. Nanomarcial Aj Cryptosporidium Not detected Normal NOT DETECTED [facility] Comment on above: Performed By: #### G IPANEL ####[facility] Ijtyknwwji87[address] [place], [place] [address]Dr. Ricardo Rocha Cyclos. Cayetanensis Not detected Normal NOT DETECTED [facility] Comment on above: Performed By: #### G IPANEL ####[facility] Qctiuqusrf6[address] [place], [place] [address]Dr. Ricardo Rocha E. Coli O157 Not Applicable Normal Not Applicable [facility] Comment on above: Performed By: #### G IPANEL ####[facility] Xdhcmplwgh16[address] [place], [place] [address]Dr. Ricardo Rocha E. histolytica Not detected Normal NOT DETECTED [facility] Comment on above: Performed By: #### G IPANEL ####[facility] Lyllcqkxcc8[address] [place], [place] [address]Dr. Ricardo Rocha EAEC Not detected Normal NOT DETECTED [facility] Comment on above: Performed By: #### G IPANEL ####[facility] Cpecubvvff7[address] [place], [place] [address]Dr. Ricardo Rocha EIEC Not detected Normal NOT DETECTED [facility] Comment on above: Performed By: #### G IPANEL ####[facility] Kylsvmmqcl[address] [place], [place] [address]Dr. Ricardo Rocha EPEC Not detected Normal NOT DETECTED [facility] Comment on above: Performed By: #### G IPANEL ####[facility] Ezenjwvzcm076[address] [place], [place] [address]Dr. Ricardo Rocha ETEC Not detected Normal NOT DETECTED [facility] Comment on above: Performed By: #### G IPANEL ####[facility] Bohzyuwqof239[address] [place], [place] [address]Dr. Ricardo Rocha G. Lamblia Not detected Normal NOT DETECTED [facility] Comment on above: Performed By: #### G IPANEL ####[facility] Itnueglwqt0127[address] [place], [place] [address]Dr. Ricardo Rocha GIPANEL CONTROLS PASSED Normal [facility] Comment on above: Performed By: #### G IPANEL ####[facility] Zmrzhsgnzx122[address] [place], [place] [address]Dr. Ricardo MARTINEZ [facility] HEADER GI PANEL BACTERIA Normal T [facility] Comment on above: Performed By: #### G IPANEL ####[facility] Dpbsxuwwce5179[address] [place], [place] [address]Dr. Ricardo MARTINEZHD ECOLI GI PANEL DIARRHEAGEN IC E.COLI / SHIGELLA Normal [facility] Comment on above: Performed By: #### G IPANEL ####[facility] Uuqqwpogwc987[address] [place], [place] [address]Dr. Ricardo MARTINEZHD INFO SEE BELOW Normal [facility] Comment on above: Result Comment: EAEC - Enteroaggregative E. Coli EPEC- Enteropathogenic E. Coli ETEC- Enterotoxigenic E. Coli lt/st STEC- Shigella-like toxin-producing E. Coli stx1/stx2 EIEC- Shigella/Enteroinvasive E. Coli Performed By: #### G IPANEL ####[facility] Qckjiufeny8750[address] [place], [place] [address]Dr. Ricardo MARTINEZHD PARASITES GI PANEL PARASITES Normal [facility] Comment on above: Performed By: #### G IPANEL ####[facility] Hjxaolwrvr189[address] [place], [place] [address]Dr. Ricardo MARTINEZHD VIRUS GI PANEL VIRUSES Normal [facility] Comment on above: Performed By: #### G IPANEL ####[facility] Tvsfvacbqw305[address] [place], [place] [address]Dr. Ricardo Rocha Norovirus GI/GII Not detected Normal NOT DETECTED [facility] Comment on above: Performed By: #### G IPANEL ####[facility] Rtcowlbphn7857[address] [place], [place] [address]Dr. Ricardo Rocha P. Shigelloides Not detected Normal NOT DETECTED [facility] Comment on above: Performed By: #### G IPANEL ####[facility] Ipttgnxobb310[address] [place], [place] [address]Dr. Ricardo Rocha Rotavirus A Not detected Normal NOT DETECTED The [facility] Comment on above: Performed By: #### G IPANEL ####[facility] Eejklgnvrj7778[address] [place], [place] [address]Dr. Ricardo Rocha Salmonella Not detected Normal NOT DETECTED [facility] Comment on above: Performed By: #### G IPANEL ####[facility] Hthizmnfkb4385[address] [place], [place] [address]Dr. Ricardo Rocha Sapovirus Not detected Normal NOT DETECTED [facility] Comment on above: Performed By: #### G IPANEL ####[facility] Sgmrpyuxcg1550[address] [place], [place] [address]Dr. Ricardo Rocha STEC Not detected Normal NOT DETECTED [facility] Comment on above: Performed By: #### G IPANEL ####[facility] Dfzyomctyq3215[address] [place], [place] [address]Dr. Ricardo Rocha Vibrio Not detected Normal NOT DETECTED [facility] Comment on above: Performed By: #### G IPANEL ####[facility] Pjfjeekfgx5733[address] [place], [place] [address]Dr. Ricardo Rocha Vibrio Cholera Not detected Normal NOT DETECTED [facility] Comment on above: Performed By: #### G IPANEL ####[facility] Eleytpjpyc7880[address] [place], [place] [address]Dr. Ricardo Rocha Y. Enterocolitica Not detected Normal NOT DETECTED [facility] Comment on above: Performed By: #### G IPANEL ####[facility] Xcmlpabmdz985[address] [place], [place] [address]Dr. Ricardo Rocha IRON AND TIBCon 06-13-2022 % SATURATION 19.9 % Normal [facility] Comment on above: Performed By: #### F ETIBC, B12FOL ####[facility] Wyhskywrqz87[address] [place], [place] [address]Dr. Ricardo Rocha Iron [Mass/Vol] 75.0 ug/dL Normal 50.0-170.0 The [facility] Comment on above: Performed By: #### F ETIBC, B12FOL ####[facility] Jfvffxkpeq3599[address] [place], [place] [address]Dr. Ricardo Rocha TIBC DIRECT 376.0 ug/dL Normal 250.0-450.0 [facility] Comment on above: Performed By: #### F ETIBC, B12FOL ####[facility] Tcffmpnzxx0290 [place] [id number]. Ricardo Rocha POINT OF CARE GLUCOSEon 05-22 Glucose [Mass/Vol] 238 mg/dL Critically high -106 [facility] Comment on above: Performed By: #### P OCGLUC ####[facility] Qovbvyufvi4465 [place] [id number]. Ricardo Rocah Glucose [Mass/Vol] 146 mg/dL Critically high -106 [facility] Comment on above: Performed By: #### P OCGLUC ####[facility] Qzsbtnklox0733 [place] [address]Dr. Nanomarcial Rocha Glucose [Mass/Vol] 143 mg/dL Critically high -106 [facility] Comment on above: Performed By: #### P OCGLUC ####[facility] Aztldvnars8077 [place] [address]Dr. Nanomarcial Rocha Glucose [Mass/Vol] 205 mg/dL Critically high -106 [facility] Comment on above: Performed By: #### P OCGLUC ####[facility] Fsktwozlpz9103 [place] [address]Dr. Ricardo Rocha Glucose [Mass/Vol] 227 mg/dL Critically high -106 [facility] Comment on above: Performed By: #### P OCGLUC ####[facility] Ajqrhopbiz1298 [place] [address]Dr. Ricardo Rocha PROF 14(COMP METB)on 022 Albumin [Mass/Vol] 1.5 g/dL Critically low 3.4-5.0 Th [facility] Comment on above: Performed By: #### C MP ####[facility] Buvyoayyom9901 [place] [address]Dr. Ricardo Rocha Albumin/Globulin [Mass ratio] 0.3 {ratio} Normal [facility] Comment on above: Performed By: #### C MP ####[facility] Vnsbpaadht9997 [place] [address]Dr. Ricardo Rocha ALP [Catalytic activity/Vol] 136 U/L Critically high 46-116 [facility] Comment on above: Performed By: #### C MP ####[facility] Ekfysnjnkj9317 [place] [address]Dr. Ricardo Rocha ALT [Catalytic activity/Vol] 18 U/L Normal 14-59 [facility] Comment on above: Performed By: #### C MP ####[facility] Dlctwapifj5366 [place] [address]Dr. Ricardo Rocha Anion gap [Moles/Vol] 10.2 mmol/L Normal [facility] Comment on above: Performed By: #### C MP ####[facility] Ahdktochow5088 [place] [address]Dr. Ricardo Aj AST [Catalytic activity/Vol] 37 U/L Normal 15-37 [facility] Comment on above: Performed By: #### C MP ####[facility] Mnytzryjav9[address] [place], [place] [address]Dr. Nanomarcial Rocha Bilirubin [Mass/Vol] 0.4 mg/dL Normal 0.2-1.0 [facility] Comment on above: Performed By: #### C MP ####[facility] Lmepuaghsl8934[address] [place], [place] [address]Dr. Ricardo Aj Calcium [Mass/Vol] 8.0 mg/dL Critically low 8.5-10.1 Th [facility] Comment on above: Performed By: #### C MP ####[facility] Igyhnptwwo[address] [place], [place] [address]Dr. Ricardo Rocha Chloride [Moles/Vol] 110 mmol/L Critically high 98-107 [facility] Comment on above: Performed By: #### C MP ####[facility] Uierimklws3920 [place] [address]Dr. Ricardo Aj CO2 [Moles/Vol] 18.2 mmol/L Critically low 21.0-32.0 [facility] Comment on above: Performed By: #### C MP ####[facility] Vnmsexbott9[address] [place], [place] [address]Dr. Ricardo Rocha Creatinine [Mass/Vol] 1.76 mg/dL Critically high 0.55-1.02 [facility] Comment on above: Performed By: #### C MP ####[facility] Fllmpxkmsl5377 [place] [id number]. Ricardo Aj EGFR-AF BHUTANESE 35 mL/min/1.73m2 Critically low >=60 [facility] Comment on above: Performed By: #### C MP ####[facility] Hyyvpfscgn3489 [place] [address]Dr. Ricardo Aj EGFR-NON AF BHUTANESE 29 mL/min/1.73m2 Critically low >=60 [facility] Comment on above: Performed By: #### C MP ####[facility] Jtfcvhvwrf1879 [place] [id number]. Ricardo Aj Globulin (S) [Mass/Vol] 4.7 g/dL Normal [facility] Comment on above: Performed By: #### C MP ####[facility] Ukndbaxqoq8720 [place] [id number]. Ricardo Rocha Glucose [Mass/Vol] 223 mg/dL Critically high 74-[address] [facility] Comment on above: Performed By: #### C MP ####[facility] Vzzalovkhb3763 [place] [address]Dr. Ricardo Rocha Potassium [Moles/Vol] 3.4 mmol/L Critically low 3.5-5.1 [facility] Comment on above: Performed By: #### C MP ####[facility] Yxivkfdvxk2387 [place] [address]Dr. Ricardo Rocha Protein [Mass/Vol] 6.2 g/dL Critically low 6.4-8.2 Th [facility] Comment on above: Performed By: #### C MP ####[facility] Uzswaiqimt2481 [place] [id number]. Ricardo Rocha Sodium [Moles/Vol] 135 mmol/L Critically low 136-145 Th [facility] Comment on above: Performed By: #### C MP ####[facility] Pdirnaqigt0368 [place] [id number]. Ricardo Rocha Urea nitrogen [Mass/Vol] 33.0 mg/dL Critically high 7.0-18.0 [facility] Comment on above: Performed By: #### C MP ####[facility] Evvitbqara0658 [place] [address]Dr. Ricarod Rocha Urea nitrogen/Creatinine [Mass ratio] 18.8 mg/mg Normal [facility] Comment on above: Performed By: #### C MP ####[facility] Ejkwgkizfn0189 [place] [address]Dr. Ricardo Rocha VANCOMYCIN TROUGHon 06-13-20 22 VANCOMYCIN TROUGH 15.2 ug/ml Normal 5.0-20.0 The [facility] Comment on above: Performed By: #### V ANCT ####[facility] Joepcbxqoy[address] [place], [place] [address]Dr. Ricardo Rocha VIT B12 AND FOLATEon 022 Cobalamin (Vitamin B12) [Mass/Vol] 874.0 pg/mL Normal 193.0-986.0 [facility] Comment on above: Performed By: #### F ETIBC, B12FOL ####[facility] Vddvppllpr6782 [place] [address]Dr. Ricardo Rocha FOLATE 6.60 ng/mL Critically low 8.60-58.90 [facility] Comment on above: Performed By: #### F ETIBC, B12FOL ####[facility] Eannuxhwir8683 [place] [address]Dr. Ricardo Rocha XR FOOT LT MIN 3 VIEWSon XR FOOT LT MIN 3 VIEWS Normal [facility] CBC W MANUAL DIFFon 06-12-20 22 ATYPICAL LYMPH # Normal [facility] Comment on above: Performed By: #### C DWAINE ####[facility] Efiapwlyrp5445 [place] [address]Dr. Ricardo Rocha ATYPICAL LYMPH % Normal [facility] Comment on above: Performed By: #### C BCRED ####[facility] Qesgsaqrjt1097 [place] [address]Dr. Ricardo Rocha BAND # 1.9 103/ul Critically high 0.0-0.3 The [facility] Comment on above: Performed By: #### C DWAINE ####[facility] Szvqfwvguo3749 [place] [id number]. Ricardo Rocha BAND % 17 % Critically high 0-5 [facility] Comment on above: Performed By: #### C BCMAN ####[facility] Ibgvcbgtdf5545 [place] [id number]. Ricardo Rocha BASOM # 0.00 103/ul Normal 0.00-0.10 [facility] Comment on above: Performed By: #### C BCMAN ####[facility] Ckxluzoopq1160 [place] [address]Dr. Ricardo Rocha BASOM % 0.0 % Critically low 0.2-2.0 [facility] Comment on above: Performed By: #### C BCMAN ####[facility] Wwhpewqkyi3091 [place] [address]Dr. Ricardo Rocha BLAST # Normal [facility] Comment on above: Performed By: #### C BCRED ####[facility] Oglvpismwe6308 [place] [address]Dr. Yimarcial Rocha BLAST % Normal [facility] Comment on above: Performed By: #### C BCRED ####[facility] Rnxjyhaaaf7502 [place] [address]Dr. Ricardo Rocha CORRECTED WBC Normal 4.0-11.0 [facility] Comment on above: Performed By: #### C BCRED ####[facility] Twaezamlfq1230 [place] [address]Dr. Ricardo Rocha EOS # 0.00 103/ul Normal 0.00-0.70 [facility] Comment on above: Performed By: #### C BCMAN ####[facility] Zbkpgcefri3199 [place] [address]Dr. Ricardo Rocha EOS% 0.0 % Critically low 0.9-7.0 [facility] Comment on above: Performed By: #### C BCMAN ####[facility] Ozmycviwru7147 [place] [address]Dr. Ricardo Rocha HCT 28.0 % Critically low 36.0-48.0 [facility] Comment on above: Performed By: #### C DWAINE ####[facility] Kxqinpcigm3123 [place], [place] [address]Zd. Ricardo Rocha HGB 8.6 g/dl Critically low 12.0-16.0 [facility] Comment on above: Performed By: #### C DWAINE ####[facility] Ceoltriuay1400 [place], [place] [address]Xe. Ricardo Rocha HYPOCHROMASIA SLIGHT Normal [facility] Comment on above: Performed By: #### C DWAINE ####[facility] Mwcpsicgal8023 [place], [place] [address]Sd. Ricardo Rocha LYMPHM # 0.77 103/ul Critically low 1.20-3.80 The [facility] Comment on above: Performed By: #### C DWAINE ####[facility] Wpwwtgzrav4272 [place] [id number]. Ricardo Rocha LYMPHM% 7.0 % Critically low 20.5-60.0 [facility] Comment on above: Performed By: #### C DWAINE ####[facility] Iaomswymyp4246 [place], [place] [address]Iq. Ricardo Rocha MCH 25.1 pg Critically low 26.7-34.0 [facility] Comment on above: Performed By: #### C DWAINE ####[facility] Rldqjusiso1979 [place], [place] [address]Xg. Ricardo Rocha MCHC 30.7 g/dl Normal 29.9-35.2 [facility] Comment on above: Performed By: #### C DWAINE ####[facility] Wavjkcivxb2847 [place], [place] [address]Oi. Ricardo Rocha MCV 81.9 fL Normal 81.0-99.0 [facility] Comment on above: Performed By: #### C DWAINE ####[facility] Gpzwrvnmzp6964 [place] [id number]. Ricardo Rocha METAMYELOCYTE # Normal The [facility] Comment on above: Performed By: #### Esteban ISIDRO ####[facility] Qyvdletdpq7514 [place] [phone]. Yilan Rocha METAMYELOCYTE % Normal [facility] Comment on above: Performed By: #### C DWAINE ####[facility] Uzmyivbixj0979 [place] [phone]. Ricardo Rocha MONOM# 0.11 103/ul Critically low 0.30-0.80 [facility] Comment on above: Performed By: #### C DWAINE ####[facility] Ipzidrfqtk3678 [place] [id number]. Ricardo Rocha MONOM% 1.0 % Critically low 1.7-12.0 [facility] Comment on above: Performed By: #### C DWAINE ####[facility] Skoijebvsv2480 [place] [id number]. Ricardo Rocha MPV 12.6 fL Normal 9.5-13.5 [facility] Comment on above: Performed By: #### C DWAINE ####[facility] Fundixstbn[address] [place], [place] [address]Dr. Ricardo Rocha MYELOCYTE # Normal [facility] Comment on above: Performed By: #### C DWAINE ####[facility] Ltqrkzrudz2669 [place] [id number]. Ricardo Rocha MYELOCYTE % Normal [facility] Comment on above: Performed By: #### C DWAINE ####[facility] Knhygsskjs7817 [place] [id number]. Ricardo Rocha NRBC Normal [facility] Comment on above: Performed By: #### C DWAINE ####[facility] Ciknjoorid3785 [place] [phone]. Ricardo Rocha PLT 140 103/ul Critically low 150-450 [facility] Comment on above: Performed By: #### C DWAINE ####[facility] Glyaffizef2104 [place] [id number]. Ricardo Rocha RBC 3.42 106/ul Critically low 4.20-5.40 [facility] Comment on above: Performed By: #### C DWAINE ####[facility] Pshmtalodr6740 [place] [id number]. Ricardo Rocha RDW 13.7 % Normal 11.0-15.0 [facility] Comment on above: Performed By: #### C DWAINE ####[facility] Ueozlyphog0149 [place] [address]Dr. Ricardo Rocha SEG # 8.25 103/ul Critically high 1.40-6.50 [facility] Comment on above: Performed By: #### C BCMAN ####[facility] Gdpeyuadbg3124 [place] [address]Dr. Ricardo Rocha SEG % 75.0 % Normal 43.0-75.0 [facility] Comment on above: Performed By: #### C BCMAN ####[facility] Bzgtiqnbmd4972 [place] [address]Dr. Ricardo Rocha WBC 11.0 103/ul Normal 4.0-11.0 [facility] Comment on above: Performed By: #### C BCRED ####[facility] Fgmahyumay3304 [place] [address]Dr. Ricardo Rocha POINT OF CARE GLUCOSEon 10-2 Glucose [Mass/Vol] 200 mg/dL Critically high 74-106 [facility] Comment on above: Performed By: #### P OCGLUC ####[facility] Gfvhydmhdl5357 [place] [address]Dr. Ricardo Aj Glucose [Mass/Vol] 165 mg/dL Critically high 74-106 [facility] Comment on above: Performed By: #### P OCGLUC ####[facility] Johwayjpxr1621 [place] [address]Dr. Ricardo Rocha Glucose [Mass/Vol] 152 mg/dL Critically high 74-106 [facility] Comment on above: Performed By: #### P OCGLUC ####[facility] Mtbhhjikuu4191 [place] [address]Dr. Ricardo Rocha Glucose [Mass/Vol] 154 mg/dL Critically high 74-106 [facility] Comment on above: Performed By: #### P OCGLUC ####[facility] Jgbmltbojn55[address] [place], [place] [address]Dr. Ricardo Rocha PROF 14(COMP METB)on 06-12- 022 Albumin [Mass/Vol] 1.9 g/dL Critically low 3.4-5.0 [facility] Comment on above: Performed By: #### C MP ####[facility] Uzlqsjgdtc2659 [place] [address]Dr. Ricardo Rocha Albumin/Globulin [Mass ratio] 0.4 {ratio} Normal [facility] Comment on above: Performed By: #### C MP ####[facility] Hsqnsexobr86[address] [place], [place] [address]Dr. Ricardo Rocha ALP [Catalytic activity/Vol] 68 U/L Normal 46-116 [facility] Comment on above: Performed By: #### C MP ####[facility] Lqzfqkghmw169[address] [place], [place] [address]Dr. Ricardo Rocha ALT [Catalytic activity/Vol] 16 U/L Normal 14-59 [facility] Comment on above: Performed By: #### C MP ####[facility] Yomgywkwwx668[address] [place], [place] [address]DrIrina Rocha Anion gap [Moles/Vol] 15.1 mmol/L Normal [facility] Comment on above: Performed By: #### C MP ####[facility] Jkngjrkbkb249[address] [place], [place] [address]DrIrina Rocha AST [Catalytic activity/Vol] 26 U/L Normal 15-37 [facility] Comment on above: Performed By: #### C MP ####[facility] Hteqdlbcea[address] [place], [place] [address]DrIrina Rocha Bilirubin [Mass/Vol] 0.3 mg/dL Normal 0.2-1.0 [facility] Comment on above: Performed By: #### C MP ####[facility] Qefoxwpfjb3412[address] [place], [place] [address]DrIrina Rocha Calcium [Mass/Vol] 8.0 mg/dL Critically low 8.5-10.1 [facility] Comment on above: Performed By: #### C MP ####[facility] Skohomztsk[address] [place], [place] [address]Dr. Ricardo Aj Chloride [Moles/Vol] 110 mmol/L Critically high 98-107 [facility] Comment on above: Performed By: #### C MP ####[facility] Vmymvfmybg5993 [place] [address]Dr. Ricardo Rocha CO2 [Moles/Vol] 18.0 mmol/L Critically low 21.0-32.0 [facility] Comment on above: Performed By: #### C MP ####[facility] Zvzcahdndr9214[address] [place], [place] [address]Dr. Ricardo Aj Creatinine [Mass/Vol] 1.97 mg/dL Critically high 0.55-1.02 [facility] Comment on above: Performed By: #### C MP ####[facility] Wyfryaasmw06[address] [place], [place] [address]Dr. Ricardo Aj EGFR-AF BHUTANESE 31 mL/min/1.73m2 Critically low >=60 [facility] Comment on above: Performed By: #### C MP ####[facility] Rweymthzgh[address] [place], [place] [address]Dr. Ricardo Aj EGFR-NON AF BHUTANESE 26 mL/min/1.73m2 Critically low >=60 [facility] Comment on above: Performed By: #### C MP ####[facility] Sazpwtuekz134[address] [place], [place] [address]Dr. Nanomarcial Rocha Globulin (S) [Mass/Vol] 5.2 g/dL Normal [facility] Comment on above: Performed By: #### C MP ####[facility] Oadhmffrkl[address] [place], [place] [address]Dr. Nanomarcial Rocha Glucose [Mass/Vol] 146 mg/dL Critically high 74-[address] [facility] Comment on above: Performed By: #### C MP ####[facility] Omgnifdcqr479[address] [place], [place] [address]Dr. Ricardo Aj Potassium [Moles/Vol] 3.1 mmol/L Critically low 3.5-5.1 [facility] Comment on above: Performed By: #### C MP ####[facility] Qiylwakork8279[address] [place], [place] [address]Dr. Ricardo Rocha Protein [Mass/Vol] 7.1 g/dL Normal 6.4-8.2 [facility] Comment on above: Performed By: #### C MP ####[facility] Rhhpqpjtzb4067 [place] [address]Dr. Ricardo Rocha Sodium [Moles/Vol] 140 mmol/L Normal 136-145 [facility] Comment on above: Performed By: #### C MP ####[facility] Kzjeprdflj2162 [place] [address]Dr. Ricardo Aj Urea nitrogen [Mass/Vol] 30.0 mg/dL Critically high 7.0-18.0 [facility] Comment on above: Performed By: #### C MP ####[facility] Bgjgxjklqt60[address] [place], [place] [address]Dr. Ricardo Aj Urea nitrogen/Creatinine [Mass ratio] 15.2 mg/mg Normal [facility] Comment on above: Performed By: #### C MP ####[facility] Najualbpdi[address] [place], [place] [address]Dr. Ricardo Aj CBC W MANUAL DIFFon 06-11-20 22 ATYPICAL LYMPH # Normal [facility] Comment on above: Performed By: #### C BCMAN ####[facility] Ozazlbhpxf9[address] [place], [place] [address]Dr. Ricardo Aj ATYPICAL LYMPH % Normal [facility] Comment on above: Performed By: #### C BCMAN ####[facility] Wmbtsrriil3835 [place] [address]Dr. Ricardo Rocha BAND # 1.1 103/ul Critically high 0.0-0.3 [facility] Comment on above: Performed By: #### C BCMAN ####[facility] Fyjyrmrltv[address] [place], [place] [address]Dr. Ricardo Rocha BAND % 12 % Critically high 0-5 [facility] Comment on above: Performed By: #### C BCMAN ####[facility] Vfgfspeeuz6876 [place] [address]Dr. Ricardo Rocha BASOM # 0.00 103/ul Normal 0.00-0.10 [facility] Comment on above: Performed By: #### C DWAINE ####[facility] [address]zrqhmgnqz21[address] [place] [address]Dr. Ricardo Rocha BASOM % 0.0 % Critically low 0.2-2.0 [facility] Comment on above: Performed By: #### C DWAINE ####[facility] Tnhcfrxiur0636 [place] [address]Dr. Ricardo Rocha BLAST # Normal [facility] Comment on above: Performed By: #### C DWAINE ####[facility] Filjuxgujx8291 [place] [address]Dr. Ricardo Rocha BLAST % Normal [facility] Comment on above: Performed By: #### C DWAINE ####[facility] Qhenhvqhka[address] [place], [place] [address]Dr. Ricardo Rocha CORRECTED WBC Normal 4.0-11.0 [facility] Comment on above: Performed By: #### C DWAINE ####[facility] Gxevpazios[address] [place], [place] [address]Dr. Ricardo Rocha EOS # 0.00 103/ul Normal 0.00-0.70 [facility] Comment on above: Performed By: #### C DWAINE ####[facility] Zbtswqpqzx9929 [place] [address]Dr. Ricardo Rocha EOS% 0.0 % Critically low 0.9-7.0 [facility] Comment on above: Performed By: #### C DWAINE ####[facility] Hoaaoxmdwp7838 [place] [address]Dr. Ricardo Rocha HCT 32.6 % Critically low 36.0-48.0 [facility] Comment on above: Performed By: #### C DWAINE ####[facility] Xjvvawperb[address] [place], [place] [address]Dr. Ricardo Rocha HGB 10.5 g/dl Critically low 12.0-16.0 [facility] Comment on above: Performed By: #### C DWAINE ####[facility] Wtotqbbdxe2125[address] [place], [place] [address]Dr. Ricardo Rocha LYMPHM # 0.46 103/ul Critically low 1.20-3.80 [facility] Comment on above: Performed By: #### C DWAINE ####[facility] Knoydzobau9786 [place] [address]Dr. Ricardo Rocha LYMPHM% 5.0 % Critically low 20.5-60.0 [facility] Comment on above: Performed By: #### C DWAINE ####[facility] Fqfljowcqz3712 [place] [address]Dr. Ricardo Rocha MCH 25.3 pg Critically low 26.7-34.0 [facility] Comment on above: Performed By: #### C DWAINE ####[facility] Uayufqzqru1459 [place] [address]Dr. Ricardo Rocha MCHC 32.2 g/dl Normal 29.9-35.2 [facility] Comment on above: Performed By: #### C DWAIEN ####[facility] Mmmrywwtzf7292 [place] [address]Dr. Ricardo Rocha MCV 78.6 fL Critically low 81.0-99.0 [facility] Comment on above: Performed By: #### C DWAINE ####[facility] Rmwfdjdblc[address] [place], [place] [address]Dr. Ricardo Rocha METAMYELOCYTE # Normal [facility] Comment on above: Performed By: #### C DWAINE ####[facility] Vsjlbwebnf2110 [place] [address]Dr. Ricardo Rocha METAMYELOCYTE % Normal [facility] Comment on above: Performed By: #### C DWAINE ####[facility] Eayjhgplks3020 [place] [address]Dr. Ricardo Rocha MONOM# 0.28 103/ul Critically low 0.30-0.80 [facility] Comment on above: Performed By: #### C DWAINE ####[facility] Dnhibmghjx5925 [place] [address]Dr. Ricardo Rocha MONOM% 3.0 % Normal 1.7-12.0 [facility] Comment on above: Performed By: #### C DWAINE ####[facility] Rlnjrkudne0070 [place], [place] [address]Al. Ricardo Rocha MPV 11.4 fL Normal 9.5-13.5 [facility] Comment on above: Performed By: #### C DWAINE ####[facility] Jjqkacnuml7146 [place], [place] [address]Mh. Ricardo Rocha MYELOCYTE # Normal [facility] Comment on above: Performed By: #### C DWAINE ####[facility] Tpuowjqwer9797 [place], [place] [address]Yc. Ricardo Rocha MYELOCYTE % Normal [facility] Comment on above: Performed By: #### C DWAINE ####[facility] Zplprpaxgb0855 [place] [id number]. Ricardo Rocha NRBC Normal [facility] Comment on above: Performed By: #### C DWAINE ####[facility] Gshigvgrqq3897 [place] [id number]. Ricardo Rocha PLT 154 103/ul Normal 150-450 [facility] Comment on above: Performed By: #### C DWAINE ####[facility] Lmpkoxuqmh0178 [place] [id number]. Ricardo Rocha RBC 4.15 106/ul Critically low 4.20-5.40 [facility] Comment on above: Performed By: #### C DWAINE ####[facility] Vcvyqtwppq5259 [place] [id number]. Ricardo Rocha RDW 12.8 % Normal 11.0-15.0 [facility] Comment on above: Performed By: #### C DWAINE ####[facility] Fpydhgphah5925 [place] [phone]. Ricardo Rocha SEG # 7.36 103/ul Critically high 1.40-6.50 [facility] Comment on above: Performed By: #### C DWAINE ####[facility] Ebtczddvex7782 [place] [id number]. Ricardo Rocha SEG % 80.0 % Critically high 43.0-75.0 [facility] Comment on above: Performed By: #### C BCMAN ####[facility] Xewugahavb9540 [place] [phone]. Ricardo Rocha WBC 9.2 103/ul Normal 4.0-11.0 [facility] Comment on above: Performed By: #### C BCMAN ####[facility] Cnunmklcny8946 [place] [phone]. Ricardo Rocha CT HEAD WO CONon 06-11-2022 CT HEAD WO CON Normal [facility] CULTURE ANAEROBICon 06-11-20 22 CULTURE ANAEROBIC Culture Observations : NO GROWTH OF ANAEROBES AT 72 HOURS. Normal [facility] Comment on above: Performed By: #### A NACX ####[facility] Fgouharetn8643 [place] [phone]. Ricardo Rocha CULTURE ANAEROBIC Culture Observations : NO GROWTH OF ANAEROBES AT 72 HOURS. Normal [facility] Comment on above: Performed By: #### A NACX ####[facility] Vstazzbooz[address] [place], [place] [address]Dr. Ricardo Rocha CULTURE BLOODon 06-11-2022 Microscopic examination of blood, culture Culture Observations: Aerobic bottle positive only. Culture Observations: No growth at 5 days in anaerobic bottle Culture Observations: See for Susceptibility testing. Isolate 1 Staphylococcus aureus Growth of Normal [facility] Comment on above: Performed By: #### B LDCX2 ####[facility] Agsecplcro[address] [place], [place] [address]Dr. Ricardo Rocha CULTURE URINEon 06-11-2022 CULTURE URINE Culture Observations : LIGHT GROWTH OF MIXED GENITAL SHAHLA. NO POTENTIAL PATHOGENS SEEN. Normal [facility] Comment on above: Performed By: #### U RCX ####[facility] Bcockkhxpu7364[address] [place], [place] [address]Dr. Ricardo Rocha Covid-19 PCR (CVDTBH)on 05-22 SARS-CoV-2 (COVID-19) RNA ADRIEL+probe Ql (Unsp spec) Not detected Normal NOT DETECTED [facility] Comment on above: Result Comment: When [...] for this test is supported by the [place] of Health and Human Service's declaration that [...] longer be used). Performed By: #### C [facility] ####[facility] Zuavnnzkca76264[address] [place], [place] [address]Dr. Ricardo Rocha ER URINE PROFILEon 2 Bilirubin Ql (U) Negative Normal NEGATIVE [facility] Comment on above: Performed By: #### SHAYNA ELENA ####[facility] Ajzfocarhr7208[address] [place], [place] [address]Dr. Ricardo Rocha Clarity (U) CLEAR Normal CLEAR [facility] Comment on above: Performed By: #### JOSLYN ELENARO ####[facility] Ltmnrfgntd5905[address] [place], [place] [address]Dr. Ricardo Rocha Color (U) LT. YELLOW Normal YELLOW [facility] Comment on above: Performed By: #### JOSLYN ELENARO ####[facility] Gzbndaeimz028[address] [place], [place] [address]Dr. Ricardo Rocha ERUAHD A micrscopic examination will be performed if indicated. Normal [facility] Comment on above: Performed By: #### JOSLYN ELENARO ####[facility] Rdacodkwqs699[address] [place], [place] [address]Dr. Ricardo Rocha Glucose Ql (U) >1000 Abnormal NEGATIVE [facility] Comment on above: Performed By: #### JOSLYN ELENARO ####[facility] Vycumzpowj2922 [place] [address]Dr. Ricardo Rocha Hemoglobin Ql (U) LARGE Abnormal NEGATIVE The [facility] Comment on above: Performed By: #### SHAYNA ELENA ####[facility] Zseolrrrpe5977[address] [place], [place] [address]Dr. Ricardo Rocha Ketones Ql (U) 15 mg/dl Abnormal NEGATIVE [facility] Comment on above: Performed By: #### SHAYNA ELENA ####[facility] Digfdqoouq185549 [address] [place], [place] [address]Dr. Ricardo Rocha LEUKOCYTES Negative Normal NEGATIVE [facility] Comment on above: Performed By: #### SHAYNA ELENA ####[facility] Mbswybuswi20264[address] [place], [place] [address]Dr. Ricardo Rocha Nitrite Ql (U) Negative Normal NEGATIVE [facility] Comment on above: Performed By: #### SHAYNA ELENA ####[facility] Jnzatqdoyk8059[address] [place], [place] [address]Dr. Ricardo Rocha pH (U) 6.0 [pH] Normal 5-9 [facility] Comment on above: Performed By: #### SHAYNA ELENA ####[facility] Ulqppwtdxb4439[address] [place], [place] [address]Dr. Ricardo Rocha Protein (U) [Mass/Vol] 100 mg/dL Abnormal NEGATIVE/ TRACE [facility] Comment on above: Performed By: #### SHAYNA ELENA ####[facility] Flvazyszad9807[address] [place], [place] [address]Dr. Ricardo Rocha SPEC GRAVITY 1.020 Normal 1.005-<=1.02 5 [facility] Comment on above: Performed By: #### SHAYNA ELENA ####[facility] Vknabvgvhs8208[address] [place], [place] [address]DrIrina Rocha UR MICRO IND INDICATED Normal [facility] Comment on above: Performed By: #### SHAYNA ELENA ####[facility] Eisqanqayj8339[address] [place], [place] [address]Dr. Ricardo Rocha Urobilinogen Qn (U) 0.2 {Madeleine'U}/dL Normal 0.2 - 1. 0 [facility] Comment on above: Performed By: #### E SHAYNA HINOJOSA ####[facility] Huacerrpns8337 [place] [address]Dr. Ricardo Rocha GRAM STAINon 06-11-2022 DIPHTHEROIDS Normal [facility] Comment on above: Performed By: #### G STAIN ####[facility] Pmeoomquoc7[address] [place], [place] [address]Dr. Ricardo Rocha EPITHELIALS Normal [facility] Comment on above: Performed By: #### G STAIN ####[facility] Qawbuohhtk6[address] [place], [place] [address]Dr. Ricardo Rocha FUNGAL ELEMENTS Normal [facility] Comment on above: Performed By: #### G STAIN ####[facility] Ksyfomdlxm6817[address] [place], [place] [address]Dr. Ricardo Rocha GRAM NEG BACILLI Normal [facility] Comment on above: Performed By: #### G STAIN ####[facility] Iedpochyiw9[address] [place], [place] [address]Dr. Ricardo Rocha GRAM NEG DIPPLOCOCCI Normal [facility] Comment on above: Performed By: #### G STAIN ####[facility] Ylgiqhujmq0839[address] [place], [place] [address]Dr. Ricardo Rocha GRAM POS BACILLI Normal [facility] Comment on above: Performed By: #### G STAIN ####[facility] Kbounijjfl8947[address] [place], [place] [address]Dr. Ricardo Rocha GRAM POSITIVE COCCI MANY Normal [facility] Comment on above: Performed By: #### G STAIN ####[facility] Yiiptjarby8858[address] [place], [place] [address]Dr. Ricardo Rocha GRAM STAIN SOURCE Left great toe tissu e after washout-clean Normal [facility] Comment on above: Performed By: #### G STAIN ####[facility] Efyfyjktdk213[address] [place], [place] [address]Dr. Ricardo Rocha GS_DIPTH Normal [facility] Comment on above: Performed By: #### G STAIN ####[facility] Sqjvxnoyty1672 [place] [id number]. Ricardo Rocha WBC RARE Normal [facility] Comment on above: Performed By: #### G STAIN ####[facility] Jtvlmcvhqn2536 [place] [phone]. Ricardo Rocha DIPHTHEROIDS Normal [facility] Comment on above: Performed By: #### G STAIN ####[facility] Hfmofjcdmq7770 [place] [phone]. Ricardo Rocha EPITHELIALS Normal [facility] Comment on above: Performed By: #### G STAIN ####[facility] Tkwnnlrqzv9286 [place] [address]Dr. Ricardo Rocha FUNGAL ELEMENTS Normal [facility] Comment on above: Performed By: #### G STAIN ####[facility] Icmgycekgy9735 [place] [address]Dr. Ricardo Rocha GRAM NEG BACILLI Normal [facility] Comment on above: Performed By: #### G STAIN ####[facility] Ksctrykfzk5679 [place] [address]Dr. Ricardo Rocha GRAM NEG DIPPLOCOCCI Normal [facility] Comment on above: Performed By: #### G STAIN ####[facility] Tapbkxxroq812[address] [place], [place] [address]Dr. Ricardo Rocha GRAM POS BACILLI Normal [facility] Comment on above: Performed By: #### G STAIN ####[facility] Kidbkbgjcv0898 [place] [address]Dr. Ricardo Rocha GRAM POSITIVE COCCI RARE Normal [facility] Comment on above: Performed By: #### G STAIN ####[facility] Cyvsbbxzou5788 [place] [address]Dr. Ricardo Rocha GRAM STAIN SOURCE Left great toe Normal [facility] Comment on above: Performed By: #### G STAIN ####[facility] Hlddxrzfvp8441 [place] [address]Dr. Ricardo Rocha GS_DIPTH Normal [facility] Comment on above: Performed By: #### G STAIN ####[facility] Xtzjvwuknx[address] [place], [place] [address]Dr. Ricardo Rocha WBC RARE Normal [facility] Comment on above: Performed By: #### G STAIN ####[facility] Wxxlpbbnyy8598[address] [place], [place] [address]Dr. Ricardo Rocha DIPHTHEROIDS Normal [facility] Comment on above: Performed By: #### G STAIN ####[facility] Qwcmoarycq566[address] [place], [place] [address]Dr. Ricardo Rocha EPITHELIALS Normal [facility] Comment on above: Performed By: #### G STAIN ####[facility] Umganzashi329[address] [place], [place] [address]Dr. Ricardo Rocha FUNGAL ELEMENTS Normal [facility] Comment on above: Performed By: #### G STAIN ####[facility] Qcivsonfft157349 [address] [place], [place] [address]Dr. Ricardo Rocha GRAM NEG BACILLI Normal [facility] Comment on above: Performed By: #### G STAIN ####[facility] Dpglfmuqam705[address] [place], [place] [address]Dr. Ricardo Rocha GRAM NEG DIPPLOCOCCI Normal [facility] Comment on above: Performed By: #### G STAIN ####[facility] Wlsjuavant7280[address] [place], [place] [address]Dr. Ricardo Rocha GRAM POS BACILLI Normal [facility] Comment on above: Performed By: #### G STAIN ####[facility] Oajolukkzu065[address] [place], [place] [address]Dr. Ricardo Rocha GRAM POSITIVE COCCI FEW Normal [facility] Comment on above: Performed By: #### G STAIN ####[facility] Huuomfjurx795649 [address] [place], [place] [address]Dr. Ricardo Rocha GRAM STAIN SOURCE Left great toe abscess Normal [facility] Comment on above: Performed By: #### G STAIN ####[facility] Sfvozicsyi26364[address] [place], [place] [address]Dr. Ricardo oRcha GS_DIPTH Normal [facility] Comment on above: Performed By: #### G STAIN ####[facility] Llqlfbbsdo612[address] [place], [place] [address]Dr. Ricardo Rocha WBC FEW Normal [facility] Comment on above: Performed By: #### G STAIN ####[facility] Evqhncwblv4912[address] [place], [place] [address]Dr. Ricardo Rocha LACTATE/LACTIC ACIDon 2021 Lactate [Moles/Vol] 2.2 mmol/L Critically high 0.4-1.9 [facility] Comment on above: Performed By: #### L ACT ####[facility] Niegqdjmaf1799[address] [place], [place] [address]Dr. Ricardo Rocha POINT OF CARE GLUCOSEon 05-22 Glucose [Mass/Vol] 133 mg/dL Critically high 74-106 [facility] Comment on above: Performed By: #### P OCGLUC ####[facility] Xhpnfkadoe5699[address] [place], [place] [address]Dr. Ricardo Rocha Glucose [Mass/Vol] 215 mg/dL Critically high -106 [facility] Comment on above: Performed By: #### P OCGLUC ####[facility] Ghaajynngo2158[address] [place], [place] [address]Dr. Ricardo Rocha Glucose [Mass/Vol] 207 mg/dL Critically high -106 [facility] Comment on above: Performed By: #### P OCGLUC ####[facility] Qfafezdlmo44224[address] [place], [place] [address]Dr. Ricardo Rocha Glucose [Mass/Vol] 314 mg/dL Critically high -106 [facility] Comment on above: Performed By: #### P OCGLUC ####[facility] Fertxqxuld0388[address] [place], [place] [address]Dr. Ricardo Rocha Glucose [Mass/Vol] 496 mg/dL Critically high -106 [facility] Comment on above: Performed By: #### P OCGLUC ####[facility] Gladvtebii6989[address] [place], [place] [address]Dr. Ricardo Rocha Glucose [Mass/Vol] 561 mg/dL Critically high -106 [facility] Comment on above: Result Comment: Prev iously Confirmed Performed By: #### P OCGLUC ####[facility] Egtubjgqtu888[address] [place], [place] [address]Dr. Ricardo Rocha PROF 14(COMP METB)on 022 Albumin [Mass/Vol] 2.4 g/dL Critically low 3.4-5.0 [facility] Comment on above: Performed By: #### C MP ####[facility] Wpnzguqlse2676 [place] [address]Dr. Ricardo Rocha Albumin/Globulin [Mass ratio] 0.4 {ratio} Normal [facility] Comment on above: Performed By: #### C MP ####[facility] Uhifbmrvpb8546 [place] [address]Dr. Ricardo Rocha ALP [Catalytic activity/Vol] 82 U/L Normal 46-116 [facility] Comment on above: Performed By: #### C MP ####[facility] Nooigtfxpb3188 [place] [address]Dr. Ricardo Rocha ALT [Catalytic activity/Vol] 12 U/L Critically low 14-59 [facility] Comment on above: Performed By: #### C MP ####[facility] Dvzyvgweyo9228[address] [place], [place] [address]Dr. Ricardo Rocha Anion gap [Moles/Vol] 15.1 mmol/L Normal [facility] Comment on above: Performed By: #### C MP ####[facility] Mvqrbfdfiy692[address] [place], [place] [address]Dr. Ricardo Rocha AST [Catalytic activity/Vol] 14 U/L Critically low 15-37 [facility] Comment on above: Performed By: #### C MP ####[facility] Vkbnhmefvm0464[address] [place], [place] [address]Dr. Ricardo Rocha Bilirubin [Mass/Vol] 0.4 mg/dL Normal 0.2-1.0 [facility] Comment on above: Performed By: #### C MP ####[facility] Hfpxysijia5568[address] [place], [place] [address]Dr. Ricardo Rocha Calcium [Mass/Vol] 8.8 mg/dL Normal 8.5-10.1 [facility] Comment on above: Performed By: #### C MP ####[facility] Txwswhzsjo4831 [place] [address]Dr. Ricardo Rocha Chloride [Moles/Vol] 105 mmol/L Normal 98-107 [facility] Comment on above: Performed By: #### C MP ####[facility] Sjyjyzpcga1273 [place] [address]Dr. Ricardo Rocha CO2 [Moles/Vol] 21.2 mmol/L Normal 21.0-32.0 [facility] Comment on above: Performed By: #### C MP ####[facility] Jujplalykq407[address] [place], [place] [address]Dr. Ricardo Aj Creatinine [Mass/Vol] 2.03 mg/dL Critically high 0.55-1.02 [facility] Comment on above: Performed By: #### C MP ####[facility] Rkebccuwza6655[address] [place], [place] [address]Dr. Ricardo Aj EGFR-AF BHUTANESE 30 mL/min/1.73m2 Critically low >=60 [facility] Comment on above: Performed By: #### C MP ####[facility] Bkqgcscrda17[address] [place], [place] [address]Dr. Ricardo Aj EGFR-NON AF BHUTANESE 25 mL/min/1.73m2 Critically low >=60 [facility] Comment on above: Performed By: #### C MP ####[facility] Vscvldlvvm044[address] [place], [place] [address]Dr. Ricardo Aj Globulin (S) [Mass/Vol] 5.7 g/dL Normal [facility] Comment on above: Performed By: #### C MP ####[facility] Darwuakswz1152 [place] [address]Dr. Ricardo Aj Glucose [Mass/Vol] 309 mg/dL Critically high 74-[address] [facility] Comment on above: Performed By: #### C MP ####[facility] Ehvcleaomo7544[address] [place], [place] [address]Dr. Ricardo Aj Potassium [Moles/Vol] 3.3 mmol/L Critically low 3.5-5.1 [facility] Comment on above: Performed By: #### C MP ####[facility] Sqmdbiyvfm0956 [place] [address]Dr. Ricardo Rocha Protein [Mass/Vol] 8.1 g/dL Normal 6.4-8.2 [facility] Comment on above: Performed By: #### C MP ####[facility] Onmvzezqcp4484 [place] [address]Dr. Ricardo Rocha Sodium [Moles/Vol] 138 mmol/L Normal 136-145 [facility] Comment on above: Performed By: #### C MP ####[facility] Qsgxvtlbhc37[address] [place], [place] [address]Dr. Ricardo Rocha Urea nitrogen [Mass/Vol] 37.0 mg/dL Critically high 7.0-18.0 [facility] Comment on above: Performed By: #### C MP ####[facility] Acenossgod899[address] [place], [place] [address]Dr. Ricardo Rocha Urea nitrogen/Creatinine [Mass ratio] 18.2 mg/mg Normal [facility] Comment on above: Performed By: #### C MP ####[facility] Dlckkfwwfu140[address] [place], [place] [address]Dr. Ricardo Rocha SED RATE [facility] 2021 SED RATE >130 Critically high <=30 [facility] Comment on above: Performed By: #### S EDR ####[facility] Goekasbigt30[address] [place], [place] [address]Dr. Ricardo Rocha URINE MICROSCOPIC ONLYon AMORPHOUS CRYSTALS MODERATE Normal [facility] Comment on above: Performed By: #### JOSLYN ELENARO ####[facility] Dplinhfqrc9[address] [place], [place] [address]Dr. Ricardo Rocha BACTERIA MODERATE Abnormal NONE SEEN [facility] Comment on above: Performed By: #### JOSLYN ELENARO ####[facility] Vozplrweip[address] [place], [place] [address]Dr. Ricardo Rocha Bacteria identified Cx Nom (U) INDICATED Normal [facility] Comment on above: Performed By: #### JOSLYN ELENARO ####[facility] Yrrjcyhowe[address] [place], [place] [address]Dr. Ricardo Rocha CAST NONE SEEN Normal NONE SEEN [facility] Comment on above: Performed By: #### LOLY ELENAICRO ####[facility] Vxwetmwydj7817 [place] [address]Dr. Ricardo Rocha Crystals LM Nom (Urine sed) SEEN Abnormal NONE SEEN [facility] Comment on above: Performed By: #### LOLY ELENAICRO ####[facility] Resrkvzvzh0426 [place] [address]Dr. Ricardo Rocha Epithelial cells LM Ql (Urine sed) NONE SEEN Normal NONE SEEN /RARE [facility] Comment on above: Performed By: #### LOLY ELENAICRO ####[facility] Jlkyecnqqa1217 [place] [address]Dr. Ricardo Rocha MUCOUS NONE SEEN Normal NONE SEEN [facility] Comment on above: Performed By: #### LOLY ELENAICRO ####[facility] Gzmqlwzrsy2937 [place] [address]Dr. Ricardo Rocha RBC 2-5 Abnormal 0-2 [facility] Comment on above: Performed By: #### Jennifer HINOJOSA UMICRO ####[facility] Nvzjwcqpxe1362 [place] [address]Dr. Ricardo Rocha WBC 5-10 Abnormal NONE SEEN [facility] Comment on above: Performed By: #### Jennifer HINOJOSA UMICRO ####[facility] Qqvxhtwewi9832 [place] [address]Dr. Ricardo Rocha XR CHEST 1 Von 06-11-2022 XR CHEST 1 V Normal [facility] XR FOOT LT MIN 3 VIEWSon XR FOOT LT MIN 3 VIEWS Normal [facility] XR FOOT LT MIN 3 VIEWS Normal [facility] ACETONE SERUMon 06-10-2022 ACETONE Negative Normal NEGATIVE [facility] Comment on above: Performed By: #### A CETON ####[facility] Dyoqeqdrkx4336 [place] [address]Dr. Ricardo Rocha AMMONIAon 06-10-2022 Ammonia (P) [Mass/Vol] ug/dL Critically low 11-32 [facility] Comment on above: Performed By: #### A MM ####[facility] Ihrwgoorur9280 [place] [id number]. Ricardo Rocha BLOOD CULTURE ID PANELon A. baumannii Not detected Normal NOT DETECTED [facility] Comment on above: Performed By: #### B CID2 ####[facility] Oigosjfoio5444 [place] [id number]. Yimarcial Rocha Bacteriodes fragilis Not detected Normal NOT DETECTED [facility] Comment on above: Performed By: #### B CID2 ####[facility] Bjsrnyepbu4047 [place] [address]Dr. Yimarcila Rocha BCID CONTROLS PASSED Normal [facility] Comment on above: Performed By: #### B CID2 ####[facility] Pgqesoqydc[address] [place], [place] [address]Dr. Ricardo Rocha BCIDBTHD BLOOD CULTURE BOTTLE INFORMATION Normal [facility] Comment on above: Performed By: #### B CID2 ####[facility] Nxzfeoxabp2917 [place] [id number]. Yimarcial Rocha BCIDHD1 ANTIMICROBIAL RESISTANCE GENES Normal [facility] Comment on above: Performed By: #### B CID2 ####[facility] Itfzmaxtlh[address] [place], [place] [address]Dr. Yimarcial Rocha BCIDHD2 SEE BELOW Normal [facility] Comment on above: Result Comment: Note : Antimicrobial resitance can occur via multiple mechanisms. A Not Detected result for the [employer] antomicrobial resistance gene assays does not indicate antimicrobial susceptibility. Subculturing is required for species identification and susceptibility testing of isolates. Performed By: #### B CID2 ####[facility] Ocadqtcmro9936 [place] [address]Dr. Ricardo Rocha BCIDHD3 Positive Normal [facility] Comment on above: Performed By: #### B CID2 ####[facility] Topyohtvuv8631 [place] [address]Dr. Ricardo Rocha BCIDHD4 Negative Normal [facility] Comment on above: Performed By: #### B CID2 ####[facility] Bsncyakczh0390 [place] [address]Dr. Ricardo Rocha BCIDHD5 YEAST Normal [facility] Comment on above: Performed By: #### B CID2 ####[facility] Mcvrkxqpsz1512 [place] [address]Dr. Yilan Rocha Bottle Set: Set 1 Normal [facility] Comment on above: Performed By: #### B CID2 ####[facility] Kushsjitke8336 [place] [address]Dr. Ricardo Rocha Bottle: Aerobic Normal [facility] Comment on above: Performed By: #### B CID2 ####[facility] Oyjgpilsvc7300 [place] [address]Dr. Ricardo Rocha C. neoformans/gattii Not detected Normal NOT DETECTED [facility] Comment on above: Performed By: #### B CID2 ####[facility] Tsjgkaokny178[address] [place], [place] [address]Dr. Ricardo Rocha Lauren albicans Not detected Normal NOT DETECTED [facility] Comment on above: Performed By: #### B CID2 ####[facility] Aejamqcmxc022[address] [place], [place] [address]Dr. Yimarcial Rocha Lauren auris Not detected Normal NOT DETECTED The [facility] Comment on above: Performed By: #### B CID2 ####[facility] Vjynnrgnpu116[address] [place], [place] [address]Dr. Yimarcial Rocha Lauren glabrata Not detected Normal NOT DETECTED [facility] Comment on above: Performed By: #### B CID2 ####[facility] Kudqwmxmjj3757 [place] [address]Dr. Yimarcial Rocha Lauren Krusei Not detected Normal NOT DETECTED [facility] Comment on above: Performed By: #### B CID2 ####[facility] Kzhmrkmhfp99[address] [place], [place] [address]Dr. Yimarcial Rocha Lauren Parapsilosis Not detected Normal NOT DETECTED [facility] Comment on above: Performed By: #### B CID2 ####[facility] Knurodfkei704[address] [place], [place] [address]Dr. Yimarcial Rocha Lauren Tropicalis Not detected Normal NOT DETECTED [facility] Comment on above: Performed By: #### B CID2 ####[facility] Pddcsbkluf24[address] [place], [place] [address]Dr. Nanomarcial Rocha CTX-M Resistant Gene Not Applicable Normal NOT DETECTE D [facility] Comment on above: Performed By: #### B CID2 ####[facility] Djxkjuflth664649 [address] [place], [place] [address]Dr. Ricardo Aj E. Cloacae complex Not detected Normal NOT DETECTED [facility] Comment on above: Performed By: #### B CID2 ####[facility] Ayhpoxbrzi635[address] [place], [place] [address]Dr. Ricardo Rocha E. faecalis Not detected Normal NOT DETECTED The [facility] Comment on above: Performed By: #### B CID2 ####[facility] Edndomizys3067[address] [place], [place] [address]Dr. Ricardo Rocha E. faecium Not detected Normal NOT DETECTED [facility] Comment on above: Performed By: #### B CID2 ####[facility] Lahaulgntt23[address] [place], [place] [address]Dr. Ricardo Rocha Enterobacteriaceae Not detected Normal NOT DETECTED [facility] Comment on above: Performed By: #### B CID2 ####[facility] Sdfadjpprq524[address] [place], [place] [address]Dr. Ricardo Rocha Escherichia coli Not detected Normal NOT DETECTED [facility] Comment on above: Performed By: #### B CID2 ####[facility] Uncwjaeixe782[address] [place], [place] [address]Dr. Ricardo Rocha H. influenzae Not detected Normal NOT DETECTED The [facility] Comment on above: Performed By: #### B CID2 ####[facility] Ujpinxnxts5216[address] [place], [place] [address]Dr. Ricardo Rocha IMP Resistant Gene Not Applicable Normal NOT DETECTED [facility] Comment on above: Performed By: #### B CID2 ####[facility] Maottlfauc2298[address] [place], [place] [address]Dr. Ricardo Rocha K. oxytoca Not detected Normal NOT DETECTED [facility] Comment on above: Performed By: #### B CID2 ####[facility] Ayfxssvuza7162 [place] [address]Dr. Ricardo Rocha K. pneumoniae Not detected Normal NOT DETECTED The [facility] Comment on above: Performed By: #### B CID2 ####[facility] Ktnwslwhrr07[address] [place], [place] [address]Dr. Ricardo Aj Klebsiella aerogenes Not detected Normal NOT DETECTED [facility] Comment on above: Performed By: #### B CID2 ####[facility] Htrmvogjse[address] [place], [place] [address]Dr. Ricardo Rocha KPC Resistant Gene Not Applicable Normal NOT DETECTED [facility] Comment on above: Performed By: #### B CID2 ####[facility] Ylgmdjbmhy79364[address] [place], [place] [address]Dr. Ricardo Rocha List. monocytogenes Not detected Normal NOT DETECTED [facility] Comment on above: Performed By: #### B CID2 ####[facility] Ejcxkiusvj20[address] [place], [place] [address]Dr. Ricardo Rocha Mcr-1 Resistant Gene Not Applicable Normal NOT DETECTE D [facility] Comment on above: Performed By: #### B CID2 ####[facility] Xotiphgiam5716[address] [place], [place] [address]Dr. Yilan Aj mecA/C Not Applicable Normal NOT DETECTED [facility] Comment on above: Performed By: #### B CID2 ####[facility] Peavzcpedh8910[address] [place], [place] [address]Dr. Ricardo Rocha mecA/C MREJ Detected Abnormal NOT DETECTED [facility] Comment on above: Performed By: #### B CID2 ####[facility] Zvxvoapngb018349 [address] [place], [place] [address]Dr. Ricardo Rocha N. meningitidis Not detected Normal NOT DETECTED [facility] Comment on above: Performed By: #### B CID2 ####[facility] Xmkuijjkag3068[address] [place], [place] [address]Dr. Ricardo Rocha NDM Resistant Gene Not Applicable Normal NOT DETECTED [facility] Comment on above: Performed By: #### B CID2 ####[facility] Yuwvviabrf9995[address] [place], [place] [address]Dr. Ricardo Rocha Oxa-48-like Not Applicable Normal NOT DETECTED The [facility] Comment on above: Performed By: #### B CID2 ####[facility] Tezytpywcn9416[address] [place], [place] [address]Dr. Ricardo Rocha Proteus Not detected Normal NOT DETECTED [facility] Comment on above: Performed By: #### B CID2 ####[facility] Bltqjncrpo6880[address] [place], [place] [address]Dr. Ricardo Rocha Pseud. aeruginosa Not detected Normal NOT DETECTED [facility] Comment on above: Performed By: #### B CID2 ####[facility] Nyqindgbzk214049 [address] [place], [place] [address]Dr. Ricardo Rocha S. maltophilia Not detected Normal NOT DETECTED [facility] Comment on above: Performed By: #### B CID2 ####[facility] Elyevysmdc99[address] [place], [place] [address]Dr. Ricardo Rocha Salmonella Not detected Normal NOT DETECTED [facility] Comment on above: Performed By: #### B CID2 ####[facility] Ysapgpzlya672[address] [place], [place] [address]Dr. Ricardo Rocha Seratia marcescens Not detected Normal NOT DETECTED [facility] Comment on above: Performed By: #### B CID2 ####[facility] Vpljzypkln886[address] [place], [place] [address]Dr. Ricardo Rocha Site: LEFT AC IV START Normal [facility] Comment on above: Performed By: #### B CID2 ####[facility] Igzktxbasq227[address] [place], [place] [address]Dr. Ricardo Rocha Staph. aureus Detected Critically abnormal NOT DETECTED [facility] Comment on above: Performed By: #### B CID2 ####[facility] Wkmnzmxweo7369[address] [place], [place] [address]Dr. Ricardo Rocha Staph. epidermidis Not detected Normal NOT DETECTED [facility] Comment on above: Performed By: #### B CID2 ####[facility] Emakkunzqz6198[address] [place], [place] [address]Dr. Ricardo Rocha Staph. lugdunensis Not detected Normal NOT DETECTED [facility] Comment on above: Performed By: #### B CID2 ####[facility] Drvtmweghr8828[address] [place], [place] [address]Dr. Ricardo Rocha Staphylococcus Detected Critically abnormal NOT DETECTED [facility] Comment on above: Performed By: #### B CID2 ####[facility] Fxmswwfaog9775[address] [place], [place] [address]Dr. Ricardo Rocha Strep. agalactiae Not detected Normal NOT DETECTED [facility] Comment on above: Performed By: #### B CID2 ####[facility] Xmpfexrpir777[address] [place], [place] [address]Dr. Ricardo Rocha Strep. pneumoniae Not detected Normal NOT DETECTED [facility] Comment on above: Performed By: #### B CID2 ####[facility] Xnfgngxvlq0311[address] [place], [place] [address]Dr. Ricardo Rocha Strep. pyogenes Not detected Normal NOT DETECTED [facility] Comment on above: Performed By: #### B CID2 ####[facility] Gbsekljzbk887149 [address] [place], [place] [address]Dr. Ricardo Rocha Streptococcus Not detected Normal NOT DETECTED The [facility] Comment on above: Performed By: #### B CID2 ####[facility] Tfrofsjwvl5358[address] [place], [place] [address]Dr. Ricardo Rocha Layne/B Resist. Gene Not Applicable Normal NOT DETECTED [facility] Comment on above: Performed By: #### B CID2 ####[facility] Jzngfxqpnf207149 [address] [place], [place] [address]Dr. Ricardo Rocha VIM Resistant Gene Not Applicable Normal NOT DETECTED [facility] Comment on above: Performed By: #### B CID2 ####[facility] Dxzhvvqjpu5380[address] [place], [place] [address]Dr. Ricardo Rocha BLOOD GASES BTYon 06-10-2022 02 MODE ROOM AIR Normal [facility] Comment on above: Performed By: #### A BG ####[facility] Nnzoecgxsu0033[address] [place], [place] [address]Dr. Ricardo Rocha ALLENS TEST Positive Normal [facility] Comment on above: Performed By: #### A BG ####[facility] Jkhgcbdmth5671 [place] [address]Dr. Ricardo Rocha Base excess Calc (Bld) [Moles/Vol] -4.5000 mmol/L Critically low -2.0-2.0 [facility] Comment on above: Performed By: #### A BG ####[facility] Wbgogzlhqh3914[address] [place], [place] [address]Dr. Ricardo Rocha BIPAP PRESSURE Normal [facility] Comment on above: Performed By: #### A BG ####[facility] Xglqfrovhj5028[address] [place], [place] [address]Dr. Ricardo Rocha CPAP Normal [facility] Comment on above: Performed By: #### A BG ####[facility] Vglwhcgtie189[address] [place], [place] [address]Dr. Ricardo Rocha FIO2 Normal [facility] Comment on above: Performed By: #### A BG ####[facility] Zalkhrypsk814[address] [place], [place] [address]Dr. Ricardo Rocha HCO3 (Bld) [Moles/Vol] 21.4 mmol/L Critically low 22.0-26.0 [facility] Comment on above: Performed By: #### A BG ####[facility] Xirfebqwmb1728[address] [place], [place] [address]Dr. Ricardo Rocha LPM Normal [facility] Comment on above: Performed By: #### A BG ####[facility] Qunvhiwgyq7044[address] [place], [place] [address]Dr. Ricardo Rocha MINUTE VOLUME Normal [facility] Comment on above: Performed By: #### A BG ####[facility] Udhfcxkpbr9718[address] [place], [place] [address]Dr. Ricardo Rocha Oxygen (Bld) [Partial pressure] 66.4 mm[Hg] Critically low 80.0-100.0 [facility] Comment on above: Performed By: #### A BG ####[facility] Pibyqctbdn538[address] [place], [place] [address]Dr. Ricardo Rocha Oxygen saturation in Blood 94.6 % Critically low 95.0-100.0 [facility] Comment on above: Performed By: #### A BG ####[facility] Zjilqzudrw3828 [place] [address]Dr. Ricardo Rocha PCO2 29.4 mmHg Critically low 35.0-45.0 [facility] Comment on above: Performed By: #### A BG ####[facility] Ouvbmuzlot5048 [place] [address]Dr. Ricardo Rocha PEEP [facility] Comment on above: Performed By: #### A BG ####[facility] Exgkmrzwio8412[address] [place], [place] [address]Dr. Ricardo Rocha pH (Bld) 7.436 [pH] Normal 7.350-7.450 [facility] Comment on above: Performed By: #### A BG ####[facility] Lotjbjqiod598[address] [place], [place] [address]Dr. Ricardo Rocha PIP [facility] Comment on above: Performed By: #### A BG ####[facility] Acsyfakdno0158[address] [place], [place] [address]Dr. Ricardo Rocha PS [facility] Comment on above: Performed By: #### A BG ####[facility] Yfnuskzlfn0614[address] [place], [place] [address]Dr. Ricardo Rocha PUNCTURE SITE LR [place] [facility] Comment on above: Performed By: #### A BG ####[facility] Vifkcwdwlb217[address] [place], [place] [address]Dr. Ricardo Rocha RATE [facility] Comment on above: Performed By: #### A BG ####[facility] Eeuedwujib109[address] [place], [place] [address]Dr. Ricardo Rocha VENT MODE [facility] Comment on above: Performed By: #### A BG ####[facility] Bkrcfwjpjl745[address] [place], [place] [address]Dr. Ricardo Rocha VT [facility] Comment on above: Performed By: #### A BG ####[facility] Gnkluwgpdi7527[address] [place], [place] [address]Dr. Ricardo Rocha CBC W MANUAL DIFFon 06-10-20 22 ATYPICAL LYMPH # Normal [facility] Comment on above: Performed By: #### C BCMAN ####[facility] Pwcmiwecjy2382 [place] [id number]. Ricardo Rocha ATYPICAL LYMPH % Normal [facility] Comment on above: Performed By: #### C BCMAN ####[facility] Egyzctajfj7747 [place] [address]Dr. Ricardo Rocha BAND # 1.3 103/ul Critically high 0.0-0.3 [facility] Comment on above: Performed By: #### C BCMAN ####[facility] Mnilrbyalb3667 [place] [address]Dr. Ricardo Rocha BAND % 12 % Critically high 0-5 [facility] Comment on above: Performed By: #### C BCRED ####[facility] Qgalqoxkus0070[address] [place], [place] [address]Dr. Ricardo Rocha BASOM # 0.00 103/ul Normal 0.00-0.10 [facility] Comment on above: Performed By: #### C BCRED ####[facility] Qczhncisbk099[address] [place], [place] [address]Dr. Ricardo Rocha BASOM % 0.0 % Critically low 0.2-2.0 [facility] Comment on above: Performed By: #### C BCRED ####[facility] Davvwozrjs2750 [place] [address]Dr. Ricardo Rocha BLAST # Normal [facility] Comment on above: Performed By: #### C BCRED ####[facility] Fzyimeogpc2013 [place] [address]Dr. Ricardo Rocha BLAST % Normal [facility] Comment on above: Performed By: #### C BCMAN ####[facility] Qlupqksnfa5429[address] [place], [place] [address]Dr. Ricardo Aj CORRECTED WBC Normal 4.0-11.0 [facility] Comment on above: Performed By: #### C BCRED ####[facility] Bfmnndlwvh9388[address] [place], [place] [address]Dr. Ricardo Rocha EOS # 0.00 103/ul Normal 0.00-0.70 [facility] Comment on above: Performed By: #### C DWAINE ####[facility] Appfofkcoh4422 [place] [id number]. Ricardo Rocha EOS% 0.0 % Critically low 0.9-7.0 [facility] Comment on above: Performed By: #### C DWAINE ####[facility] Rtmcjbnpkk1422 [place] [address]Dr. Ricardo Rocha HCT 35.5 % Critically low 36.0-48.0 [facility] Comment on above: Performed By: #### C DWAINE ####[facility] Jfvijaqczd3506 [place] [address]Dr. Ricardo Rocha HGB 11.4 g/dl Critically low 12.0-16.0 [facility] Comment on above: Performed By: #### C DWAINE ####[facility] Vshjvapavj79[address] [place], [place] [address]Dr. Ricardo Rocha HYPERSEG NEUT 3+ Normal [facility] Comment on above: Performed By: #### C DWAINE ####[facility] Oqpsqpfixn3146 [place] [address]Dr. Ricardo Rocha LYMPHM # 0.21 103/ul Critically low 1.20-3.80 [facility] Comment on above: Performed By: #### C DWAINE ####[facility] Qibrochoan1075 [place] [address]Dr. Ricardo Rocha LYMPHM% 2.0 % Critically low 20.5-60.0 [facility] Comment on above: Performed By: #### C DWAINE ####[facility] Fieeoobejx3557 [place] [id number]. Ricardo Rocha MCH 25.3 pg Critically low 26.7-34.0 [facility] Comment on above: Performed By: #### C DWAINE ####[facility] Qnamdugwus5829 [place] [address]Dr. Ricardo Rocha MCHC 32.1 g/dl Normal 29.9-35.2 [facility] Comment on above: Performed By: #### C DWAINE ####[facility] Zqjweyzcvu3415 [place] [address]Dr. Ricardo Rocha MCV 78.9 fL Critically low 81.0-99.0 [facility] Comment on above: Performed By: #### C DWAINE ####[facility] Nsutmmbxzc9144 [place] [id number]. Ricardo Rocha METAMYELOCYTE # Normal [facility] Comment on above: Performed By: #### C DWAINE ####[facility] Zwnjworjta7451 [place] [id number]. Ricardo Rocha METAMYELOCYTE % Normal [facility] Comment on above: Performed By: #### C DWAINE ####[facility] Jlemnzbppw4701 [place] [id number]. Ricardo Rocha MONOM# 0.32 103/ul Normal 0.30-0.80 [facility] Comment on above: Performed By: #### C DWAINE ####[facility] Qccnehzowu1977 [place] [address]Dr. Ricardo Rocha MONOM% 3.0 % Normal 1.7-12.0 [facility] Comment on above: Performed By: #### C DWAINE ####[facility] Aywlyoetyh8288 [place] [id number]. Ricardo Rocha MPV 10.9 fL Normal 9.5-13.5 [facility] Comment on above: Performed By: #### C DWAINE ####[facility] Lxuwmtxefp5607 [place] [address]Dr. Ricardo Rocha MYELOCYTE # Normal [facility] Comment on above: Performed By: #### C DWAINE ####[facility] Aunsigxihk0442 [place] [id number]. Ricardo Rocha MYELOCYTE % Normal [facility] Comment on above: Performed By: #### C DWAINE ####[facility] Flxhwpxmfp2710 [place] [id number]. Ricardo Rocha NRBC Normal [facility] Comment on above: Performed By: #### C DWAINE ####[facility] Ggyycaxscy7010 [place], [place] [address]Mm. Ricardo Rocha PLT 180 103/ul Normal 150-450 [facility] Comment on above: Performed By: #### C DWAINE ####[facility] Seinqvkhqo3578 [place], [place] [address]Aw. Ricardo Rocha RBC 4.50 106/ul Normal 4.20-5.40 [facility] Comment on above: Performed By: #### C DWAINE ####[facility] Jqnuylapab4091 [place] [id number]. Ricardo Rocha RDW 12.8 % Normal 11.0-15.0 [facility] Comment on above: Performed By: #### C DWAINE ####[facility] Ndqlbgylqf2700 [place] [id number]. Ricardo Rocha SEG # 8.71 103/ul Critically high 1.40-6.50 [facility] Comment on above: Performed By: #### C DWAINE ####[facility] Nirvhsmgtm6947 [place] [id number]. Ricardo Rocha SEG % 83.0 % Critically high 43.0-75.0 [facility] Comment on above: Performed By: #### C DWAINE ####[facility] Vajkwlkgcf3279 [place] [id number]. Ricardo Rocha TOXIC GRANULATION 2+ Normal The [facility] Comment on above: Performed By: #### C DWAINE ####[facility] Yttouzyvyp5355 [place] [id number]. Ricardo Rocha WBC 10.5 103/ul Normal 4.0-11.0 [facility] Comment on above: Performed By: #### C DWAINE ####[facility] [address]feh[address]pc[address] [place], [place] [address]Dr. Ricardo Rocha CULTURE BLOODon 06-10-2022 Microscopic examination of blood, culture Culture Observations: Positive blood culture. Pediatric bottle. Culture Observations: Please refer to for susceptibility testing. Isolate 1 Staphylococcus aureus Growth of Normal [facility] Comment on above: Performed By: #### B LDCX2 ####[facility] Mdfbsjatod2026 [place] [address]Dr. Ricardo Rocha LACTATE/LACTIC ACIDon 2021 Lactate [Moles/Vol] 1.9 mmol/L Normal 0.4-1.9 [facility] Comment on above: Performed By: #### L ACT ####[facility] Xrnrjxhgcx7[address] [place], [place] [address]Dr. Ricardo Rocha LIPASEon 06-10-2022 Lipase [Catalytic activity/Vol] 164.0 U/L Normal 73.0-393.0 [facility] Comment on above: Performed By: #### H STROPN, LIPA, CMP, TSH ####[facility] Tyicrxedwo9548[address] [place], [place] [address]Dr. Ricardo Rocha POINT OF CARE GLUCOSEon 05-22 Glucose [Mass/Vol] 583 mg/dL Critically high 74-106 [facility] Comment on above: Result Comment: Resu lt Not Confirmed Performed By: #### P OCGLUC ####[facility] Niumpwovoo87[address] [place], [place] [address]Dr. Ricardo Rocha PROF 14(COMP METB)on 022 Albumin [Mass/Vol] 3.0 g/dL Critically low 3.4-5.0 [facility] Comment on above: Performed By: #### H STROPN, LIPA, CMP, TSH ####[facility] Epsxnmtokx15[address] [place], [place] [address]Dr. Ricardo Rocha Albumin/Globulin [Mass ratio] 0.5 {ratio} Normal [facility] Comment on above: Performed By: #### H STROPN, LIPA, CMP, TSH ####[facility] Xsbfcxopnb8591 [place] [address]Dr. Ricardo Rocha ALP [Catalytic activity/Vol] 116 U/L Normal 46-116 [facility] Comment on above: Performed By: #### H STROPN, LIPA, CMP, TSH ####[facility] Autxymhdid299[address] [place], [place] [address]Dr. Ricardo Rocha ALT [Catalytic activity/Vol] 15 U/L Normal 14-59 [facility] Comment on above: Performed By: #### H STROPN, LIPA, CMP, TSH ####[facility] Msdxtedgbr4578 [place] [address]Dr. Ricardo Rocha Anion gap [Moles/Vol] 15.7 mmol/L Normal [facility] Comment on above: Performed By: #### H STROPN, LIPA, CMP, TSH ####[facility] Xkcbjdczrr3437 [place] [address]Dr. Ricardo Rocha AST [Catalytic activity/Vol] 16 U/L Normal 15-37 [facility] Comment on above: Performed By: #### H STROPN, LIPA, CMP, TSH ####[facility] Wntauxhgzn0697 [place] [address]Dr. Ricardo Rocha Bilirubin [Mass/Vol] 0.5 mg/dL Normal 0.2-1.0 [facility] Comment on above: Performed By: #### H STROPN, LIPA, CMP, TSH ####[facility] Xoiimxvtud0677 [place] [address]Dr. Ricardo Rocha Calcium [Mass/Vol] 9.4 mg/dL Normal 8.5-10.1 [facility] Comment on above: Performed By: #### H STROPN, LIPA, CMP, TSH ####[facility] Sqktdxypyb0342 [place] [address]Dr. Ricardo Rocha Chloride [Moles/Vol] 95 mmol/L Critically low 98-107 [facility] Comment on above: Performed By: #### H STROPN, LIPA, CMP, TSH ####[facility] Glinpuiozg1830 [place] [address]Dr. Ricardo Rocha CO2 [Moles/Vol] 22.1 mmol/L Normal 21.0-32.0 [facility] Comment on above: Performed By: #### H STROPN, LIPA, CMP, TSH ####[facility] Oqrunggfmn8568 [place] [address]Dr. Ricardo Rocha Creatinine [Mass/Vol] 2.23 mg/dL Critically high 0.55-1.02 [facility] Comment on above: Performed By: #### H STROPN, LIPA, CMP, TSH ####[facility] Dfinjqyfbx5164 [place] [address]Dr. Ricardo Rocha EGFR-AF BHUTANESE 27 mL/min/1.73m2 Critically low >=60 [facility] Comment on above: Performed By: #### H STROPN, LIPA, CMP, TSH ####[facility] Dyldkyealk0728 [place] [address]Dr. Ricardo Rocha EGFR-NON AF BHUTANESE 22 mL/min/1.73m2 Critically low >=60 [facility] Comment on above: Performed By: #### H STROPN, LIPA, CMP, TSH ####[facility] Xyhdjcjjev0005 [place] [address]Dr. Ricardo Rocha Globulin (S) [Mass/Vol] 6.5 g/dL Normal [facility] Comment on above: Performed By: #### H STROPN, LIPA, CMP, TSH ####[facility] [address]yiy[address] [place] [address]Dr. Ricardo Rocha Glucose [Mass/Vol] 593 mg/dL Critically high 74-106 [facility] Comment on above: Performed By: #### H STROPN, LIPA, CMP, TSH ####[facility] Oth[address]it[address] [place] [address]Dr. Ricardo Rocha Potassium [Moles/Vol] 3.8 mmol/L Normal 3.5-5.1 [facility] Comment on above: Performed By: #### H STROPN, LIPA, CMP, TSH ####[facility] [address]alkwbp[address] [place] [address]Dr. Ricardo Rocha Protein [Mass/Vol] 9.5 g/dL Critically high 6.4-8.2 [facility] Comment on above: Performed By: #### H STROPN, LIPA, CMP, TSH ####[facility] [address]epksepys[address] [place] [address]Dr. Ricardo Rocha Sodium [Moles/Vol] 129 mmol/L Critically low 136-145 [facility] Comment on above: Performed By: #### H STROPN, LIPA, CMP, TSH ####[facility] [address]courv[address] [place] [address]Dr. Ricardo Rocha Urea nitrogen [Mass/Vol] 40.0 mg/dL Critically high 7.0-18.0 [facility] Comment on above: Performed By: #### H STROPN, LIPA, CMP, TSH ####[facility] Inmlqtidpi[address] [place] [address]Dr. Ricardo Rocha Urea nitrogen/Creatinine [Mass ratio] 17.9 mg/mg Normal [facility] Comment on above: Performed By: #### H STROPN, LIPA, CMP, TSH ####[facility] R[address] [place], [place] [address]Dr. Ricardo Rocha PROTIMEon 06-10-2022 INR Coag (PPP) [Relative time] 1.00 {INR} Normal [facility] Comment on above: Performed By: #### P TT, PT ####[facility] [address] [place], [place] [address]Dr. Ricardo Rocha INR GUIDELINES SEE BELOW Normal [facility] Comment on above: Result Comment: AMBROSIO RED INR: 2.0 - 3.0 CONDITIONS NOT LISTED BELOW 2.5 - 3.5 FOR PROSTHETIC HEART VALVE REPLACEMENT 2.5 - 3.5 RECURRENT THROMBOSIS Performed By: #### P TT, PT ####[facility] [address] [place], [place] [address]Dr. Rciardo Rocha PT Coag (PPP) [Time] 10.8 s Normal 9.0-11.6 [facility] Comment on above: Performed By: #### P TT, PT ####[facility] [address] [place], [place] [address]Dr. Ricardo Rocha PTTon 06-10-2022 aPTT Coag (Bld) [Time] 31.7 s Normal 22.3-36.2 [facility] Comment on above: Performed By: #### P TT, PT ####[facility] Abicwh[address]ynp[address] [place], [place] [address]Dr. Ricardo Rocha TROPONIN, HIGH SENSITIVITYon 06-10-2022 HSTROP 30.9 pg/mL Normal 4.0-51.3 [facility] Comment on above: Result Comment: CUT- OFF POINTS HAVE BEEN ESTABLISHED BASED ON THE FOURTH UNIVERSAL DEFINITIONS OF MYOCARDIALINFARCTION. THE UPPER REFERENCE LIMIT (URL) OF TROPONIN, DEFINED THE 99TH PERCENTILE OFcTnI DISTRIBUTION IN A REFERENCE POPULATION, HAS BEEN CONFIRMED THE DECISION THRESHOLDFOR [place] DIAGNOSIS. Performed By: #### H STROPN, LIPA, CMP, TSH ####[facility] [address] [place] [id number]. Ricardo Rocha TSHon 06-10-2022 TSH 0.147 uIU/mL Critically low 0.358-3.740 [facility] Comment on above: Performed By: #### H STROPN, LIPA, CMP, TSH ####[facility] Vufneqjzsc[address] [place] [address]Dr. Ricardo Rocha XR FOOT GURJIT MIN 3 VIEWSon XR FOOT GURJIT MIN 3 VIEWS Normal [facility] XR HAND RT MIN 3Von 06-02-20 XR HAND RT MIN 3V Normal The [facility] CULTURE WOUNDon 05-15-2022 CULTURE WOUND Normal [facility] Comment on above: Performed By: #### W OUNDCX ####[facility] [address]vespgudxj[address] [place] [id number]. Ricardo Rocha CBC AUTO DIFFon 2022 BASO # 0.0 103/ul Normal 0.0-0.1 [facility] Comment on above: Performed By: #### C BC ####[facility] Qxqnczyasj[address] [place] [id number]. Ricardo Rocha Basophils/100 WBC (Bld) 0.7 % Normal 0.2-2.0 [facility] Comment on above: Performed By: #### C BC ####[facility] [address] [place], [place] [address]Dr. Ricardo Rocha EO # 0.1 103/ul Normal 0.0-0.7 [facility] Comment on above: Performed By: #### C BC ####[facility] [address]yzds[address] [place] [id number]. Ricardo Rocha Eosinophils/100 WBC (Bld) 2.1 % Normal 0.9-7.0 [facility] Comment on above: Performed By: #### C BC ####[facility] M[address]fpdzddr[address] [place] [address]Dr. Ricardo Rocha Erythrocyte distribution width (RBC) [Ratio] 13.2 % Normal 11.0-15.0 [facility] Comment on above: Performed By: #### C BC ####[facility] Y[address] [place], [place] [address]Dr. Ricardo Rocha Hematocrit (Bld) [Volume fraction] 36.6 % Normal 36.0-48.0 [facility] Comment on above: Performed By: #### C BC ####[facility] Mccv[address]tjgr[address] [place], [place] [address]Dr. Ricardo Rocha Hemoglobin (Bld) [Mass/Vol] 11.9 g/dL Critically low 12.0-16.0 [facility] Comment on above: Performed By: #### C BC ####[facility] [address] [place], [place] [address]Dr. Ricardo Rocha IG # 0.03 10e3/ul Normal 0.00-0.03 [facility] Comment on above: Performed By: #### C BC ####[facility] [address] [place], [place] [address]Dr. Ricardo Rocha IG % 0.5 % Normal 0.0-0.5 [facility] Comment on above: Performed By: #### C BC ####[facility] Se[address]fu[address]byj[address] [place], [place] [address]Dr. Ricardo Rocha LYMPH # 2.1 103/ul Normal 1.2-3.8 [facility] Comment on above: Performed By: #### C BC ####[facility] Vrxhuqeos[address] [place], [place] [address]Dr. Ricardo Rocha Lymphocytes/100 WBC (Bld) 33.8 % Normal 20.5-60.0 [facility] Comment on above: Performed By: #### C BC ####[facility] Atnkjgpgsu[address] [place] [address]Dr. Ricardo Rocha MANUAL DIFF REQ NO Normal [facility] Comment on above: Performed By: #### C BC ####[facility] Ouvyxmpevn[address] [place] [address]Dr. Ricardo Rocha MCH (RBC) [Entitic mass] 25.7 pg Critically low 26.7-34.0 [facility] Comment on above: Performed By: #### C BC ####[facility] [address]ect[address] [place], [place] [address]Dr. Ricardo Rocha MCHC (RBC) [Mass/Vol] 32.5 g/dL Normal 29.9-35.2 [facility] Comment on above: Performed By: #### C BC ####[facility] [address]dk[address] [place], [place] [address]Dr. Nanomarcial Rocha MCV (RBC) [Entitic vol] 79.0 fL Critically low 81.0-99.0 [facility] Comment on above: Performed By: #### C BC ####[facility] Z[address]rvqa[address] [place], [place] [address]Dr. Ricardo Rocha MONO # 0.4 103/ul Normal 0.3-0.8 [facility] Comment on above: Performed By: #### C BC ####[facility] [address] [place], [place] [address]Dr. Nanomarcial Rocha Monocytes/100 WBC (Bld) 6.2 % Normal 1.7-12.0 [facility] Comment on above: Performed By: #### C BC ####[facility] [address]ow[address]cos[address] [place], [place] [address]Dr. Ricardo Rocha NEUT # 3.5 103/ul Normal 1.4-6.5 [facility] Comment on above: Performed By: #### C BC ####[facility] [address] [place], [place] [address]Dr. Nanomarcial Rocha Neutrophils/100 WBC (Bld) 56.7 % Normal 43.0-75.0 [facility] Comment on above: Performed By: #### C BC ####[facility] [address]ocme[address] [place] [id number]. Nanomarcial Aj Platelet mean volume (Bld) [Entitic vol] 10.9 fL Normal 9.5-13.5 [facility] Comment on above: Performed By: #### C BC ####[facility] Qzwxybptsv[address] [place] [address]Dr. Ricardo Rocha PLT 241 103/ul Normal 150-450 [facility] Comment on above: Performed By: #### C BC ####[facility] V[address]ycerznf[address] [place] [address]Dr. Ricardo Rocha RBC 4.63 106/ul Normal 4.20-5.40 [facility] Comment on above: Performed By: #### C BC ####[facility] [address] [place], [place] [address]Dr. Ricardo Rocha WBC 6.1 103/ul Normal 4.0-11.0 [facility] Comment on above: Performed By: #### C BC ####[facility] E[address]xb[address] [place], [place] [address]Dr. Ricardo Rocha PROF CHEM 8 (BAS METB)on Anion gap [Moles/Vol] 11.8 mmol/L Normal [facility] Comment on above: Performed By: #### B MP ####[facility] [address]ugvsw[address] [place] [address]Dr. Ricardo Rocha Calcium [Mass/Vol] 9.2 mg/dL Normal 8.5-10.1 [facility] Comment on above: Performed By: #### B MP ####[facility] Bwgvcyercl[address] [place] [address]Dr. Ricardo Rocha Chloride [Moles/Vol] 99 mmol/L Normal 98-107 [facility] Comment on above: Performed By: #### B MP ####[facility] Xqjqljuvgs4380 [place] [address]Dr. Ricardo Rocha CO2 [Moles/Vol] 24.7 mmol/L Normal 21.0-32.0 [facility] Comment on above: Performed By: #### B MP ####[facility] Xfzfactthe69[address] [place] [address]Dr. Ricardo Rocha Creatinine [Mass/Vol] 1.48 mg/dL Critically high 0.55-1.02 [facility] Comment on above: Performed By: #### B MP ####[facility] [address] [place], [place] [address]Dr. Ricardo Aj EGFR-AF BHUTANESE 43 mL/min/1.73m2 Critically low >=60 [facility] Comment on above: Performed By: #### B MP ####[facility] X[address] [place], [place] [address]Dr. Ricardo Aj EGFR-NON AF BHUTANESE 36 mL/min/1.73m2 Critically low >=60 [facility] Comment on above: Performed By: #### B MP ####[facility] [address]ub[address] [place], [place] [address]Dr. Ricardo Rocha Glucose [Mass/Vol] 431 mg/dL Critically high 74-[address] [facility] Comment on above: Performed By: #### B MP ####[facility] [address]ks[address] [place], [place] [address]Dr. Ricardo Rocha Potassium [Moles/Vol] 4.5 mmol/L Normal 3.5-5.1 [facility] Comment on above: Performed By: #### B MP ####[facility] Uv[address]raet[address] [place], [place] [address]Dr. Ricardo Rocha Sodium [Moles/Vol] 131 mmol/L Critically low 136-145 [facility] Comment on above: Performed By: #### B MP ####[facility] [address]zaior[address] [place], [place] [address]Dr. Ricardo Rocha Urea nitrogen [Mass/Vol] 23.0 mg/dL Critically high 7.0-18.0 [facility] Comment on above: Performed By: #### B MP ####[facility] [address] [place], [place] [address]Dr. Ricardo Rocha Urea nitrogen/Creatinine [Mass ratio] 15.5 mg/mg Normal [facility] Comment on above: Performed By: #### B ####[facility] [address] [place], [place] [address]SvIrina Rocha XR TOES GURJIT MIN 2 Von 2021 XR TOES GURJIT MIN 2 V Normal [facility] HEALTHon 01-21-2021 ALLIED HEALTH HNO ID: [id number] Author: RT Parveen(R) Service: ? Author Type: [employer] Manager Type: Allied Health Filed: 01/20/2021 10:30 [...] Parveen(R) January 20, 2021 10:29 PM Normal [facility] Basic Metabolic Panlon 01-21 Anion gap [Moles/Vol] 7 mmol/L Low 9-18 [facility] Calcium [Mass/Vol] 8.8 mg/dL Normal 8.5-10.[address] [facility] ospital Chloride [Moles/Vol] 99 mmol/L Normal 97-105 [facility] CO2 [Moles/Vol] 25 mmol/L Normal 22-30 [facility] Creatinine [Mass/Vol] 1.51 mg/dL High 0.58-0.96 [facility] eGFR- Amer. [address] [facility] ospital eGFR-All Other Races 35 . Normal [facility] Comment on above: Result Comment: eGFR [...] GFR. Glucose [Mass/Vol] 141 mg/dL High 74-99 [facility] Comment on above: Result Comment: The [place] Diabetes Association (ADA) provides guidance for cutoff [...] Standards of Medical Care in Diabetes 2016, [place] Diabetes Association. Diabetes Care. 2016.39(Suppl 1). Potassium [Moles/Vol] 4.7 mmol/L Normal 3.7-5.1 [facility] Sodium [Moles/Vol] 131 mmol/L Low 136-144 [facility] Urea nitrogen [Mass/Vol] 42 mg/dL High 7-21 [facility] CBCon 01-21-2021 Absolute nRBC <0.01 Normal <0.01 [facility] E[facility]th[facility] distribution width (RBC) [Ratio] 13.1 % Normal 11.5-15.0 [facility] Hematocrit (Bld) [Volume fraction] 30.0 % Low 36.0-46.0 [facility] Hemoglobin (Bld) [Mass/Vol] 9.5 g/dL Low 11.5-15.5 [facility] MCH 24.4 pG Low 26.0-34.0 [facility] MCHC (RBC) [Mass/Vol] 31.7 g/dL Normal 30.5-36.0 [facility] MCV (RBC) [Entitic vol] 77.1 fL Low 80.0-100.0 [facility] Platelet mean volume (Bld) [Entitic vol] 11.1 fL Normal 9.0-12.7 [facility] Platelets (Bld) [#/Vol] 358 10*3/uL Normal 150-400 [facility] RBC (Bld) [#/Vol] 3.89 10*6/uL Low 3.90-5.20 [facility] WBC (Bld) [#/Vol] 9.64 10*3/uL Normal 3.70-11.00 [facility] CNDSon 01-21-2021 CNDS HNO ID: [id number] Author: Inna Hansen DO Service: Hospital Medicine [...] Team: Attending Provider: Inna Hansen DO Physician Court Worker: Garrett Simon PA-C Consulting: Taurus Ballard MD [...] PCP: referred to a new PCP in [place]. Future Appointments Date Time Provider Department Center 01/29/2021 11:40 AM Taurus Ballard MD [facility] The patient's risk for 30-day readmission is determined using the following contributing factors: Pt variables contributing to increased readmission risk: 42 Most Recent (more content not included)... Normal [facility] MRI KIDNEY WO/W IVCONon 06-0 MRI KIDNEY WO/W IVCON * * *Final Report* * * DATE OF EXAM: Jan 20 2021 10:35PM [facility] - [facility] KIDNEY WO/W IVCON / PROCEDURE REASON: Renal cyst * * * * Physician Interpretation * * * * EXAMINATION: MRI ABDOMEN WITHOUT AND WITH IV CONTRAST CLINICAL HISTORY: Renal mass characterization. TECHNIQUE: A renal MRI was performed on a MR system utilizing the torso phased-array coil. Pulse sequences included: axial precontrast T1 weighted in- and yxq-np-ntbmk, axial and coronal HASTE, axial DWI with [...] be communicated with the ordering provider via [employer] staff message or phone message by [employer] within 2 business days of report finalization. Algorithms for management of incidental imaging findings can be found on the [facility] Intranet Sharepoint site at: [email or web address] [email or web address]%2 0Findi ngs%20at%20Imaging/Form s/AllItems.aspx [employer] Head: GUILLE Transcribe Date/Time: Jan 21 2021 8:17A Dictated by : MALLORY AHN MD This examination was interpreted and the report reviewed and electronically signed by: MALLORY AHN MD on Jan 21 2021 8:49AM EST [id number] ACTIONABLE Invalid Interpretation Code [facility] Basic Metabolic Panlon 01-20 Anion gap [Moles/Vol] 11 mmol/L Normal 9-18 [facility] Calcium [Mass/Vol] 8.7 mg/dL Normal 8.5-10.[address] [facility] ospital Chloride [Moles/Vol] 97 mmol/L Normal 97-105 [facility] CO2 [Moles/Vol] 24 mmol/L Normal 22-30 [facility] Creatinine [Mass/Vol] 1.46 mg/dL High 0.58-0.96 [facility] eGFR- Amer. 44 Normal [facility] eGFR-All Other Races 36 . Normal [facility] Comment on above: Result Comment: eGFR [...] ospital Comment on above: Result Comment: The [place] Diabetes Association (ADA) provides guidance for cutoff [...] Standards of Medical Care in Diabetes 2016, [place] Diabetes Association. Diabetes Care. 2016.39(Suppl 1). Potassium [Moles/Vol] 3.9 mmol/L Normal 3.7-5.1 [facility] Sodium [Moles/Vol] 132 mmol/L Low 136-144 [facility] Urea nitrogen [Mass/Vol] 53 mg/dL High 7-21 [facility] CBCon 01-20-2021 Absolute nRBC <0.01 Normal <0.01 [facility] Erythrocyte distribution width (RBC) [Ratio] 12.8 % Normal 11.5-15.0 [facility] Hematocrit (Bld) [Volume fraction] 27.7 % Low 36.0-46.0 [facility] Hemoglobin (Bld) [Mass/Vol] 8.9 g/dL Low 11.5-15.5 [facility] MCH 24.5 pG Low 26.0-34.0 [facility] MCHC (RBC) [Mass/Vol] 32.1 g/dL Normal 30.5-36.0 [facility] MCV (RBC) [Entitic vol] 76.3 fL Low 80.0-100.0 [facility] Platelet mean volume (Bld) [Entitic vol] 11.1 fL Normal 9.0-12.7 [facility] Platelets (Bld) [#/Vol] 321 10*3/uL Normal 150-400 [facility] RBC (Bld) [#/Vol] 3.63 10*6/uL Low 3.90-5.20 [facility] WBC (Bld) [#/Vol] 11.05 10*3/uL High 3.70-11.00 [facility] CONSULT PROGon 01-20-2021 CONSULT PROG HNO ID: [id number] Author: Rajendra Cruz MD Service: Nephrology Author Type: Physician Type: Consult Progress Note Filed: 01/20/2021 1:44 PM Note Text: [facility] NEPHROLOGY CONSULT PROGRESS NOTE SERVICE DATE: [...] DATE: January 20, 2021 1:43 PM PHONE: [phone] FOR AFTER HOUR CONCERNS BETWEEN 7PM - 7AM CONTACT ON-CALL NEPHROLOGY STAFF Normal [facility] THERAPY [facility] 01-20-2021 THERAPY NT HNO ID: [id number] Author: Afia Radford, PT Service: Physical Therapy Author Type: Physical Therapist Type: Therapy (PT/OT/Speech/Resp) Filed: 01/20/2021 3:32 PM Note Text: Physical Therapy Treatment SERVICE DATE: 01/20/2021 SERVICE TIME: 1330 to 1353 ROOM: [place] [address] Recommended Discharge Disposition: Home PT Recommended Discharge [...] 0 Tub/Shower Type: tub shower Laundry: basement, tykkynab-wi-muo Equipment Owned: Cane;Standard Walker Prior Functional Level: [...] Diagnosis: Reduced mobility-other Interventions Provided: Gait Training (40373);Therapeutic Exercise (94455) Therapeutic Exercise (07635) Treatment Minutes: 8 Pt performed in supine position: AP, QS, GS x 10 B LE, pt instructed to do every hour while awake on their own. 7 days a week, HS, hip ABD, SAQ, SLR 10-20 reps/ 2-3x/day/ 7 days/week Gait Training (45269) Treatment Minutes: 15 $ Gait Training (12611) Billed Units: 1 unit Training AND education [...] 2021 TIME: (more content not included)... Normal [facility] THERAPY NT HNO ID: [id number] Author: Heidy Wright, OT/L Service: Occupational Therapy Author Type: Occupational Therapist Type: Therapy (PT/OT/Speech/Resp) Filed: 01/20/2021 12:15 PM Note Text: Occupational Therapy Treatment SERVICE DATE: 01/20/2021 SERVICE TIME: 1155 to 1205 ROOM: [place] [address] Recommended Discharge Disposition: Home OT Recommended Discharge [...] 0 Tub/Shower Type: tub shower Laundry: basement, yzydcmla-vg-rjp Equipment Owned: Cane;Standard Walker Prior Functional Level: [...] signs-other Interventions Provided: Self Group Home Management (68703) Self Group Home Management (00123) Treatment Minutes: 10 $ Self Group Home Management (13459) Billed Units: 1 unit Training AND education provided in: Benefits of in (more content not included)... Normal [facility] THERAPY NT HNO ID: [id number] Author: Heidy Wright OT/Broderick Service: Occupational Therapy Author Type: Occupational Therapist Type: Therapy (PT/OT/Speech/Resp) Filed: 01/20/2021 8:24 AM Note Text: OCCUPATIONAL THERAPY MISSED VISIT SERVICE DATE: 01/20/2021 SERVICE TIME: 0820 to 0820 ROOM: [place] [address] Attempted Treatment. Patient not seen due to Declined. Pt states, It's too early when OT attempted to work with her. Will re-attempt as schedule permits. SIGNATURE: Heidy Wright OT/Broderick PATIENT NAME: Aislinn [place] DATE: January 20, 2021 TIME: 8:24 AM [facility] Basic Metabolic Panlon 01-19 Anion gap [Moles/Vol] 11 mmol/L Normal 9-18 [facility] Calcium [Mass/Vol] 8.5 mg/dL Normal 8.5-10.[address] [facility]spital Chloride [Moles/Vol] 93 mmol/L Low 97-105 [facility] CO2 [Moles/Vol] 24 mmol/L Normal 22-30 [facility] Creatinine [Mass/Vol] 1.92 mg/dL High 0.58-0.96 [facility] eGFR- Amer. [address] [facility] ospital eGFR-All Other Races 26 . Normal [facility] Comment on above: Result Comment: eGFR [...] GFR. Glucose [Mass/Vol] 268 mg/dL High 74-99 [facility] Comment on above: Result Comment: The [place] Diabetes Association (ADA) provides guidance for cutoff [...] Standards of Medical Care in Diabetes 2016, [place] Diabetes Association. Diabetes Care. 2016.39(Suppl 1). Potassium [Moles/Vol] 4.2 mmol/L Normal 3.7-5.1 [facility] Sodium [Moles/Vol] 128 mmol/L Low 136-144 [facility] Urea nitrogen [Mass/Vol] 77 mg/dL High 7-21 [facility] Anion gap [Moles/Vol] 11 mmol/L Normal 9-18 [facility] Calcium [Mass/Vol] 8.3 mg/dL Low 8.5-10.2 [facility] Chloride [Moles/Vol] 88 mmol/L Low 97-105 [facility] CO2 [Moles/Vol] 23 mmol/L Normal 22-30 [facility] Creatinine [Mass/Vol] 1.93 mg/dL High 0.58-0.96 [facility] eGFR- Amer. 32 Normal [facility] eGFR-All Other Races 26 . Normal [facility] Comment on above: Result Comment: eGFR [...] GFR. Glucose [Mass/Vol] 292 mg/dL High 74-99 [facility] Comment on above: Result Comment: The [place] Diabetes Association (ADA) provides guidance for cutoff [...] Standards of Medical Care in Diabetes 2016, [place] Diabetes Association. Diabetes Care. 2016.39(Suppl 1). Potassium [Moles/Vol] 3.8 mmol/L Normal 3.7-5.1 [facility] Sodium [Moles/Vol] 122 mmol/L Low 136-144 [facility] Urea nitrogen [Mass/Vol] 82 mg/dL High 7-21 [facility] CBCon 01-19-2021 Absolute nRBC <0.01 Normal <0.01 [facility] Erythrocyte distribution width (RBC) [Ratio] 12.8 % Normal 11.5-15.0 [facility] Hematocrit (Bld) [Volume fraction] 27.5 % Low 36.0-46.0 [facility] Hemoglobin (Bld) [Mass/Vol] 9.1 g/dL Low 11.5-15.5 [facility] MCH 24.9 pG Low 26.0-34.0 [facility] MCHC (RBC) [Mass/Vol] 33.1 g/dL Normal 30.5-36.0 [facility] MCV (RBC) [Entitic vol] 75.1 fL Low 80.0-100.0 [facility] Platelet mean volume (Bld) [Entitic vol] 11.2 fL Normal 9.0-12.7 [facility] l Platelets (Bld) [#/Vol] 297 10*3/uL Normal 150-400 [facility] RBC (Bld) [#/Vol] 3.66 10*6/uL Low 3.90-5.20 [facility] WBC (Bld) [#/Vol] 12.14 10*3/uL High 3.70-11.00 [facility] CONSULT PROGon 01-19-2021 CONSULT PROG HNO ID: [id number] Author: Rajendra Cruz MD Service: Nephrology Author Type: Physician Type: Consult Progress Note Filed: 01/19/2021 2:40 PM Note Text: [facility] NEPHROLOGY CONSULT PROGRESS NOTE SERVICE DATE: [...] DATE: January 19, 2021 2:27 PM PHONE: [phone] FOR AFTER HOUR CONCERNS BETWEEN 7PM - 7AM CONTACT ON-CALL NEPHROLOGY STAFF [facility] 01-19-2021 NUTRITION HNO ID: [id number] Author: Michelle Louis RD Service: Nutrition Therapy [...] history;Intake records;Patient/family self-report;Weight loss;Nausea;Vomiting Estimated kilocalorie needs: 6816-1303 Calorie Calculation Method: 30-35 kcals/kg Estimated protein [...] January 19, 2021 TIME: 10:59 AM PAGER: [id number] I have reviewed the nutritional assessment note documented by the recording studio intern and I personally participated in the miller components. I have discussed the case and nutritional management of the patient's care. Michelle Louis MS,RD,LD,[facility] THERAPY NTon 01-19-2021 THERAPY NT HNO ID: [id number] Author: Afia Radford, PT Service: Physical Therapy Author Type: Physical Therapist Type: Therapy (PT/OT/Speech/Resp) Filed: 01/19/2021 2:57 PM Note Text: Physical Therapy Evaluation SERVICE DATE: 01/19/2021 SERVICE TIME: 1307 to 1331 ROOM: [place] [address] Recommended Discharge Disposition: Home PT Anticipated Discharge [...] 0 Tub/Shower Type: tub shower Laundry: basement, lxvmjvov-ur-qzx Equipment Owned: Cane;Standard Walker Prior Functional Level: [...] Diagnosis: Reduced mobility-other Interventions Provided: Evaluation;Therapeutic Exercise (69151);Gait Training (21077) $ Evaluation-Low (74211) Billed Units: 1 unit Therapeutic Exercise (83467) Treatment Minutes: 1 Patient performed in seated position: Marching, AP/HR, hip ABD, LAQ x10 B LE- instructions written on white board for pt to complete on her own. Gait Training (62045) Treatment Minutes: 8 $ Gait Training (37336) Billed Units: 1 unit Training AND education [...] present during visit: Aleksander Syed, DELFIN Normal [facility] Basic Metabolic Panlon 01-18 Anion gap [Moles/Vol] 13 mmol/L Normal 9-18 [facility] Calcium [Mass/Vol] 8.8 mg/dL Normal 8.5-10.[address] [facility] ospital Chloride [Moles/Vol] 88 mmol/L Low 97-105 [facility] CO2 [Moles/Vol] 22 mmol/L Normal 22-30 [facility] Creatinine [Mass/Vol] 2.21 mg/dL High 0.58-0.96 [facility] eGFR- Amer. [address] [facility] ospital eGFR-All Other Races 23 . Normal [facility] Comment on above: Result Comment: eGFR [...] ospital Comment on above: Result Comment: The Australian Diabetes Association (ADA) provides guidance for cutoff [...] Standards of Medical Care in Diabetes 2016, [place] Diabetes Association. Diabetes Care. 2016.39(Suppl 1). Potassium [Moles/Vol] 3.7 mmol/L Normal 3.7-5.1 [facility] Sodium [Moles/Vol] 123 mmol/L Low 136-144 [facility] Urea nitrogen [Mass/Vol] 93 mg/dL High 7-21 [facility] Anion gap [Moles/Vol] 16 mmol/L Normal 9-18 [facility] Calcium [Mass/Vol] 9.0 mg/dL Normal 8.5-10.2 [facility] Chloride [Moles/Vol] 93 mmol/L Low 97-105 [facility] CO2 [Moles/Vol] 21 mmol/L Low 22-30 [facility] Creatinine [Mass/Vol] 2.59 mg/dL High 0.58-0.96 [facility] eGFR- Amer. 23 Normal [facility] eGFR-All Other Races 19 . Normal [facility] Comment on above: Result Comment: eGFR [...] GFR. Glucose [Mass/Vol] 130 mg/dL High 74-99 [facility] Comment on above: Result Comment: The [place] Diabetes Association (ADA) provides guidance for cutoff [...] Standards of Medical Care in Diabetes 2016, [place] Diabetes Association. Diabetes Care. 2016.39(Suppl 1). Potassium [Moles/Vol] 4.7 mmol/L Normal 3.7-5.1 [facility] Sodium [Moles/Vol] 130 mmol/L Low 136-144 [facility] Urea nitrogen [Mass/Vol] 97 mg/dL High 7-21 [facility] CASE MGT INIT [facility] 2020 CASE MGT INIT [facility] HNO ID: [id number] Author: Nicol Landin RN Service: ? 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 Goals: To have reduction in pain;To [...] scheduled Advance Directive: Current Advance Directive: None Physician Internist Attempted to Assist with AD Completion: Yes [...] and plan for meeting these needs: Patient's xeuscpnv-id-tmt and son live close by and come over to help often Patient's perception of need for this admission: necessary Medication Adherance I am convinced of the importance of my prescription medication: 0 - Agree Completely I worry that my prescription medication will do more harm than good to me : 0 - Disagree Completely I feel financially burdened by my wkh-pt-yfsqdx expenses for my prescription medication:: 0 - Disagree Completely Risk Score: 0 Patient is categorized as: Low risk < 2 Are you interested in bedside delivery of your medications? Yes Is Patient Psychosocially Complex?: Yes, refer to Social Work ASSESSMENT AND PLAN: Medical Needs: Medical Needs: Two or more chronic diseases Psychosocial Needs: Psychosocial Needs: None FREEDOM OF CHOICE EXPLAINED: [place] of Choice Given: No Reason Not Given: [...] and hospitalized about 1 month ago in [place] but no resolution of her symptoms. She [...] 18, 2021 TIME: 10:51 AM PAGER/CONTACT #: [phone] Normal [facility] CBCon 01-18-2021 Absolute nRBC <0.01 Normal <0.01 [facility] al Erythrocyte distribution width (RBC) [Ratio] 13.0 % Normal 11.5-15.0 [facility] Hematocrit (Bld) [Volume fraction] 31.2 % Low 36.0-46.0 [facility] Hemoglobin (Bld) [Mass/Vol] 9.9 g/dL Low 11.5-15.5 [facility] MCH 24.4 pG Low 26.0-34.0 [facility] MCHC (RBC) [Mass/Vol] 31.7 g/dL Normal 30.5-36.0 [facility] MCV (RBC) [Entitic vol] 77.0 fL Low 80.0-100.0 [facility] Platelet mean volume (Bld) [Entitic vol] 10.8 fL Normal 9.0-12.7 [facility] Platelets (Bld) [#/Vol] 310 10*3/uL Normal 150-400 [facility] RBC (Bld) [#/Vol] 4.05 10*6/uL Normal 3.90-5.20 [facility] WBC (Bld) [#/Vol] 17.03 10*3/uL High 3.70-11.00 [facility] CONSULTon 01-18-2021 CONSULT HNO ID: [id number] Author: Annie Trinidad DO Service: Hypertension AND [...] Noted a no-show appointment to urology at [facility]. She also reports that she has [...] for n (more content not included)... Normal [facility] CONSULT HNO ID: [id number] Author: Taurus Ballard MD Service: Urology Author Type: Physician Type: Consults Filed: 01/18/2021 8:27 AM Note Text: [facility] UROLOGY CONSULT NOTE [...] the pa (more content not included)... Normal [facility] Creatinine,Urine,Ranon 01-18 Creatinine,Urine,Ran 33.5 mg/dL Normal 20-300 [facility] Comment on above: Performed By: #### U SAUNDRA, UOSM, UCRR ####[facility] [address] [place], [place] [phone] Magnesiumon 01-18-2021 Magnesium [Mass/Vol] 1.9 mg/dL Normal 1.7-2.3 [facility] NURSING PROGon 01-18-2021 NURSING PROG HNO ID: [id number] Author: Barbara Spicer RN Service: ? Author Type: Registered Nurse Type: Nursing Progress Note Filed: 01/18/2021 10:28 AM Note Text: Nursing Progress Note Patient Name: Aislinn Wheeler Patient Location: / Daily Note:pt report given to pete LE. Pt VSS. Pt belongings packed. This note was completed by: Barbara Spicer Normal [facility] Osmolalityon 01-18-2021 Osmolality [Osmolality] 298 mosm/kg Normal 275-300 [facility] Comment on above: Performed By: #### O SM ####[facility] [address] [place], [place] [phone] Osmolality, Urineon 01-19-20 21 Osmolality, Urine 273 mOsm/kg Normal 50-1200 [facility] Comment on above: Performed By: #### U SAUNDRA, UOSM, UCRR ####[facility] [place], [place] [phone] Sepsis Lactateon 01-18-2021 Sepsis Lactate 0.9 mmol/L Normal <2.1 [facility] Sodium,Urine,Randomon 2020 Sodium (U) [Moles/Vol] 32 mmol/L Normal 14-216 [facility] Comment on above: Performed By: #### U SAUNDRA, UOSM, UCRR ####[facility] [place], [place] [phone] THERAPY NTon 01-18-2021 THERAPY NT HNO ID: [id number] Author: Wendy Montes De Oca OT/Broderick Service: Occupational Therapy Author Type: Occupational Therapist Type: Therapy (PT/OT/Speech/Resp) Filed: 01/18/2021 1:10 PM Note Text: Occupational Therapy Evaluation SERVICE DATE: 01/18/2021 SERVICE TIME: 0854 to 0915 ROOM: [place] [address] Recommended Discharge Disposition: Home OT Recommended Discharge [...] 0 Tub/Shower Type: tub shower Laundry: basement, [id number] Equipment Owned: Cane;Standard Walker CURRENT FUNCTIONAL STATUS: [...] and signs-other Interventions Provided: Evaluation $ Evaluation-Moderate (56678) Billed Units: 1 unit Training and education [...] DATE: January 18, 2021 TIME: 1:06 PM [facility] Urine Cultureon 01-18-2021 Bacteria identified Cx Nom (U) Sp. Request/Comment: - Specimen received in preservative Culture Result - No growth (<1,000 CFU/ml) [facility] Comment on above: Performed By: #### U RCUL ####[facility] [address] [place], [place] [phone] Blood Cultureon 01-17-2021 Bacteria identified Cx Nom (Bld) Culture Result - No growth 5 days Normal [facility] Comment on above: Performed By: #### B LCUL ####[facility] [address] [place], [place] [phone] C-Reactive Proteinon 021 C-Reactive Protein 32.4 mg/dL High <0.9 [facility] Comment on above: Performed By: #### W SR ####[facility] [address] [place], [place] [phone] CBC and Differentialon 01-17 Abs Baso <0.03 Normal <0.11 [facility] Abs Eosin <0.03 Normal <0.46 [facility] Abs [place] 0.73 k/uL Normal <0.87 [facility] Abs Neut 14.70 k/uL High 1.45-7.50 [facility] Absolute nRBC <0.01 Normal <0.01 [facility] Basophils/100 WBC (Bld) 0.1 % Normal [facility] DTYPE Auto Diff Normal [facility] Eosinophils/100 WBC (Bld) 0.0 % Normal [facility] Erythrocyte distribution width (RBC) [Ratio] 13.1 % Normal 11.5-15.0 [facility] Hematocrit (Bld) [Volume fraction] 35.1 % Low 36.0-46.0 [facility] Hemoglobin (Bld) [Mass/Vol] 11.3 g/dL Low 11.5-15.5 [facility] Lymphocytes (Bld) [#/Vol] 1.88 10*3/uL Normal 1.00-4.00 [facility] Lymphocytes/100 WBC (Bld) 10.8 % Normal [facility] MCH 24.2 pG Low 26.0-34.0 [facility] MCHC (RBC) [Mass/Vol] 32.2 g/dL Normal 30.5-36.0 [facility] MCV (RBC) [Entitic vol] 75.2 fL Low 80.0-100.0 [facility] Monocytes/100 WBC (Bld) 4.2 % Normal [facility] Neutrophils/100 WBC (Bld) 84.9 % Normal [facility] NRBCs 0.0 /100 WBC Normal 0 [facility] l Platelet mean volume (Bld) [Entitic vol] 11.4 fL Normal 9.0-12.7 [facility] l Platelets (Bld) [#/Vol] 345 10*3/uL Normal 150-400 [facility] RBC (Bld) [#/Vol] 4.67 10*6/uL Normal 3.90-5.20 [facility] WBC (Bld) [#/Vol] 17.33 10*3/uL High 3.70-11.[address] [facility] [address] ABD/PEL WO IVCONon 2020 CT ABD/PEL WO IVCON * * *Final Report* * * DATE OF EXAM: Jan 17 2021 8:05PM [facility] 0531 - CT ABD/PEL WO IVCON / PROCEDURE REASON: Mass or lump, abdomen pelvis * * * * Physician Interpretation * * * * CT OF CHEST, ABDOMEN AND PELVIS WITHOUT CONTRAST CLINICAL HISTORY: Aspiration (accession [id number]), Mass or lump, abdomen pelvis (accession [id number]) Concern for possible source of infection vs [...] report for details. Pelvic bones are intact. Waiter/Waitress Captain (topogram) images: Unremarkable. IMPRESSION: Left upper lobe [...] be communicated with the ordering provider via [employer] staff message or phone message by [employer] within 2 business days of report finalization. ACTIONABLE RESULT: FOLLOW-UP Acuity: Actionable Findings: Kidneys/Ureters/Bladder /Adrenal Routing Code: GU_1 Recommendation: MRI KIDNEY WO/W IVCON Time Frame: non-urgent, but prompt follow-up. COMMUNICATION: Results will be communicated with the ordering provider via [employer] staff message or phone message by [employer] within 2 business days of report finalization. Algorithms for management of incidental imaging findings can be found on the [facility] Intranet Sharepoint site at: http://[email or web address]/docu mentation/[email or web address]/ Managing%20Incidental%2 0Findi ngs%20at%20Imaging/Form s/AllItems.aspx [employer] Head: GUILLE Transcribe Date/Time: Jan 17 2021 8:20P Dictated by : PADILLA JIM MD This examination was interpreted and the report reviewed and electronically signed by: PADILLA JIM MD on Jan 17 2021 8:43PM EST [id number] ACTIONABLE Invalid Interpretation Code [facility] CT BRAIN WO IVCONon 01-18-[address] BRAIN WO IVCON * * *Final Report* * * DATE OF EXAM: Jan 17 2021 4:26PM [facility] 0504 - CT BRAIN WO [...] base and imaged soft tissues are unremarkable. Waiter/Waitress Captain (topogram) images: No additional findings. IMPRESSION: No acute intracranial hemorrhage or mass effect is seen [employer] Head: GUILLE Transcribe Date/Time: Jan 17 2021 4:47P Dictated by : JOHN THAKKAR MD This examination was interpreted and the report reviewed and electronically signed by: JOHN THAKKAR MD on Jan 17 2021 4:48PM EST [id number] Normal [facility] CT CERVICAL SPINE WO IVCONon 01-17-2021 CT CERVICAL SPINE WO IVCON * * *Final Report* * * DATE OF EXAM: Jan 17 2021 4:26PM [facility] 0505 - CT CERVICAL SPINE [...] Counting reference: Craniocervical junction. Anatomic Variants: None. Waiter/Waitress Captain (topogram) images: No additional findings. Alignment: Straightening [...] vertebrae with counting from the craniocervical junction. [employer] Head: PSCB Transcribe Date/Time: Jan 17 2021 4:49P Dictated by : JOHN THAKKAR MD This examination was interpreted and the report reviewed and electronically signed by: JOHN THAKKAR MD on Jan 17 2021 4:53PM EST [id number] Normal [facility] CT CHEST WO IVCONon 01-18-20 CT CHEST WO IVCON * * *Final Report* * * DATE OF EXAM: Jan 17 2021 8:05PM [facility] 0541 - CT CHEST WO IVCON / PROCEDURE REASON: Aspiration * * * * Physician Interpretation * * * * CT OF CHEST, ABDOMEN AND PELVIS WITHOUT CONTRAST CLINICAL HISTORY: Aspiration (accession [id number]), Mass or lump, abdomen pelvis (accession [id number]) Concern for possible source of infection vs [...] report for details. Pelvic bones are intact. Waiter/Waitress Captain (topogram) images: Unremarkable. IMPRESSION: Left upper lobe [...] be communicated with the ordering provider via [employer] staff message or phone message by [employer] within 2 business days of report finalization. ACTIONABLE RESULT: FOLLOW-UP Acuity: Actionable Findings: Kidneys/Ureters/Bladder /Adrenal Routing Code: GU_1 Recommendation: MRI KIDNEY WO/W IVCON Time Frame: non-urgent, but prompt follow-up. COMMUNICATION: Results will be communicated with the ordering provider via [employer] staff message or phone message by [employer] within 2 business days of report finalization. Algorithms for management of incidental imaging findings can be found on the [facility] Intranet Sharepoint site at: [email or web address] [email or web address]/ Managing%20Incidental%2 0Findi ngs%20at%20Imaging/Form s/AllItems.aspx [employer] Head: GUILLE Transcribe Date/Time: Jan 17 2021 8:20P Dictated by : PADILLA JIM MD This examination was interpreted and the report reviewed and electronically signed by: PADLILA JIM MD on Jan 17 2021 8:43PM EST [id number] ACTIONABLE Invalid Interpretation Code [facility] CT LUMBAR SPINE WO IVCONon 0 01-17-2021 CT LUMBAR SPINE WO IVCON * * *Final Report* * * * * * SEE BOTTOM OF REPORT FOR ADDENDED TEXT * * * DATE OF EXAM: Jan 17 2021 5:34PM [facility] 0508 - CT LUMBAR SPINE [...] are 5 lumbar-type vertebrae. Anatomic variant: None. Waiter/Waitress Captain (topogram) images: No additional findings. Alignment: Alignment [...] on 01/17/2021 6:08 PM via verbal communication. [employer] Head: GUILLE Transcribe Date/Time: Jan 17 2021 6:05P Dictated by : JOHN THAKKAR MD This examination was interpreted and the report reviewed and electronically signed by: JOHN THAKKAR MD on Jan 17 2021 6:01PM EST This document has been addended by: JOHN THAKKAR MD on Jan 17 2021 6:08PM EST [id number] [facility] CT THORACIC SPINE WO IVCONon 01-17-2021 CT THORACIC SPINE WO IVCON * * *Final Report* * * DATE OF EXAM: Jan 17 2021 5:34PM [facility] 0514 - CT THORACIC SPINE [...] the purposes of this report, anatomic variants: Waiter/Waitress Captain (topogram) images: No additional findings. Alignment: Alignment [...] and assume there are 5 lumbar-type vertebrae. [employer] Head: GUILLE Transcribe Date/Time: Jan 17 2021 6:03P Dictated by : JOHN THAKKAR MD This examination was interpreted and the report reviewed and electronically signed by: JOHN THAKKAR MD on Jan 17 2021 6:13PM EST [id number] Normal [facility] Comp Metabolic Panelon 01-17 Albumin [Mass/Vol] 3.0 g/dL Low 3.9-4.9 [facility] ALP [Catalytic activity/Vol] 162 U/L High 34-123 [facility] ALT [Catalytic activity/Vol] 7 U/L Normal 7-38 [facility] Anion gap [Moles/Vol] 17 mmol/L Normal 9-18 [facility] AST [Catalytic activity/Vol] 15 U/L Normal 13-35 [facility] Bilirubin [Mass/Vol] 0.4 mg/dL Normal 0.2-1.3 [facility] Calcium [Mass/Vol] 9.6 mg/dL Normal 8.5-10.2 [facility] Chloride [Moles/Vol] 83 mmol/L Low 97-105 [facility] CO2 [Moles/Vol] 20 mmol/L Low 22-30 [facility] Creatinine [Mass/Vol] 2.93 mg/dL High 0.58-0.96 [facility] eGFR- Amer. 20 Normal [facility] eGFR-All Other Races 16 . Normal [facility] Comment on above: Result Comment: eGFR [...] ospital Comment on above: Result Comment: The [place] Diabetes Association (ADA) provides guidance for cutoff [...] Standards of Medical Care in Diabetes 2016, [place] Diabetes Association. Diabetes Care. 2016.39(Suppl 1). Potassium [Moles/Vol] 5.5 mmol/L High 3.7-5.1 [facility] Protein [Mass/Vol] 9.5 g/dL High 6.3-8.0 [facility] Sodium [Moles/Vol] 120 mmol/L Low 136-144 [facility] Comment on above: Result Comment: Resu lt checked and verified Urea nitrogen [Mass/Vol] 104 mg/dL High 7-21 [facility] ED NOTEon 01-17-2021 ED NOTE HNO ID: [id number] Author: Prerna Luke RN Service: ? Author Type: Registered Nurse Type: ED Notes Filed: 01/17/2021 9:32 PM Note Text: Report called to 4E RN. Patient stable for transport at this time. [facility] ED NOTE HNO ID: [id number] Author: Prerna Luke RN Service: ? Author Type: Registered Nurse Type: ED Notes Filed: 01/17/2021 9:20 PM Note Text: 16Fr chaves inserted with 500 cc urine immediately drained. Patient tolerated well. [facility] ED NOTE HNO ID: [id number] Author: Prerna Luke RN Service: ? Author Type: Registered Nurse Type: ED Notes Filed: 01/17/2021 7:22 PM Note Text: BC obtained by lab. ABX infusing at this time. [facility] ED NOTE HNO ID: [id number] Author: Prerna Luke RN Service: ? Author Type: Registered Nurse Type: ED Notes Filed: 01/17/2021 7:06 PM Note Text: This RN and 2 medics unable to straight stick patient for blood or draw from existing IVs. Lab will draw one set of BC; GIANNI Tucker notified that only one set will be obtained. [facility] ED NOTE HNO ID: [id number] Author: Prerna Luke RN Service: ? Author Type: Registered Nurse Type: ED Notes Filed: 01/17/2021 4:25 PM Note Text: XR at bedside [facility] ED NOTE HNO ID: [id number] Author: Prerna Luke RN Service: ? Author Type: Registered Nurse Type: ED Notes Filed: 01/17/2021 4:03 PM Note Text: covid swab obtained and walked to lab. [facility] ED NOTE HNO ID: [id number] Author: Bharat Patterson RN Service: ? Author [...] Reports oral intake has been poor Normal [facility] ED PROV NOTEon 01-17-2021 ED PROV NOTE HNO ID: [id number] Author: Garrett Simon PA-C Service: Emergency Medicine Author Type: Physician Court Worker Type: ED Provider Notes Filed: 01/17/2021 9:27 [...] significant midlin (more content not included)... Normal [facility] HISTORY PHYSICALon HISTORY PHYSICAL HNO ID: [id number] Author: Trevor Porras MD Service: Hospital Medicine Author Type: Physician Type: HANDP Filed: 01/17/2021 10:12 PM Note Text: DEPARTMENT OF HOSPITAL MEDICINE HISTORY AND PHYSICAL EXAM SERVICE DATE: 01/17/2021 Code Status: Not on file SERVICE TIME: 10:00 PM Primary Care Physician: No Pcp NIGHT AND WEEKEND COVERAGE: [place] COVERAGE: Days: [phone], please contact via [employer] Nights: [phone], please page [facility] Hospitalist Night coverage pager [phone] Subjective CHIEF COMPLAINT: Generalized weakness, falls HPI: [...] Most recen (more content not included)... Normal [facility] Intermed Rapid COVIDon 01-17 SARS-CoV-2 (COVID-19) RNA ADRIEL+probe Ql (Unsp spec) UPPER RESPIRATORY TRACT SWAB Normal [facility] Comment on above: Performed By: #### I TCOVD ####[facility] [place], [place] [phone] SARS-CoV-2 (COVID-19) RNA ADRIEL+probe Ql (Unsp spec) Negative for COVID19 (SARS CoV2) by RT-PCR or equivalent method. Normal Negative for COVID19 (SARS CoV2) by RT-PCR or equivalent method. [facility] Comment on above: Result Comment: This test was developed and its performance characteristics determined by [facility]'s [facility] [place]. This test has been authorized by FDA under an Emergency Use Authorization (EUA). This test has been validated in accordance with the FDA's Guidance Document Policy for Diagnostics Testing in Laboratories Certified to Perform High Complexity Testing under CLIA prior to Emergency use Authorization for Coronavirus Disease 2019 during the Public Health Emergency issued on October 19, 2019. Test performed by [facility], [facility] [place], [address] [place], [place] [address]. Performed By: #### I TCOVD ####[place] [id number] [place], [place] [phone] Magnesiumon 01-17-2021 Magnesium [Mass/Vol] 2.0 mg/dL Normal 1.7-2.3 [facility] NT Pro BNPon 01-17-2021 PRO B Natr Peptide 394 pg/mL High <125 [facility] Sed Rate Westergrenon 2020 Sed Rate Westergren 124 mm/hr High 0-20 [facility] Comment on above: Performed By: #### W SR ####[facility] [place], [place] [phone] TSHon 01-17-2021 TSH Qn 0.615 m[IU]/L Normal 0.270-4.200 [facility] Troponin Ton 01-17-2021 Troponin T.cardiac [Mass/Vol] 0.023 ug/L Normal 0.000-0.029 [facility] Urinalysis with Microscopico n 01-17-2021 Bacteria Present Critically abnormal 0 [facility] Bilirubin, Urine Negative Normal Negative [facility] pital Cast SEE COMMENT Normal 0 [facility] Comment on above: Result Comment: 0 Clarity (U) Turbid Critically abnormal Clear [facility] Color (U) Yellow Normal Yellow [facility] Glucose Ql (U) Negative Normal Negative [facility] tae Hemoglobin/Blood,Ur 2+ Critically abnormal Negative [facility] Ketones Ql (U) Negative Normal Negative [facility] tae Leukest 3+ Critically abnormal Negative [facility] Nitrite Ql (U) Positive Critically abnormal Negative [facility] pH (U) 8.5 [pH] High 5.0-8.0 [facility] Protein, Urine 2+ Critically abnormal Negative [facility] RBC 3-5 Critically abnormal 0-3 [facility] Specific [place], Ur 1.013 Normal 1.005-1.030 [facility] Urobilinogen Qn (U) 0.2 {Madeleine'U}/dL Normal 0.2-1.0 [facility] WBC (U) [#/Vol] /uL Critically abnormal 0-5 [facility] Urine Cultureon 01-17-2021 Bacteria identified Cx [...] F Ertapenem SUSCEPTIBLE <=0.5 F Critically abnormal [facility] Comment on above: Performed By: #### U RCUL ####[facility] [address] [place], [place] [phone] XR CHEST 1V FRONTAL PORTon 0 01-17-2021 [...] exam with no evidence of acute disease. [employer] Head: GUILLE Transcribe Date/Time: Jan 17 2021 4:40P Dictated by : FLASH WOODS MD This examination was interpreted and the report reviewed and electronically signed by: FLASH WOODS MD on Jan 17 2021 4:41PM EST [id number] Normal [facility] Vital Signs Date Time Vital Sign Value Performing Clinician Facility 07-03-2024 11:59-0500 Body height 152.4 cm [email or web address] PA-C [facility] 07-03-2024 11:59-0500 Body mass index (BMI) [Ratio] 23.83 kg/m2 [employer] PA-C [facility] [facility] 07-03-2024 11:59-0500 Body weight 55.34 kg [employer] PA-C Work Phone: [facility] 07-03-2024 11:59-0500 Diastolic blood pressure 94 mm[Hg] [employer] PA-C [facility] 07-03-2024 11:59-0500 Heart rate 80 /min Sweta Verhoff PA-C Work Phone: [facility] 07-03-2024 11:59-0500 SaO2% (BldA) [Mass fraction] 100 % Sweta Verhoff PA-C Work Phone: [facility] 07-03-2024 11:59-0500 Systolic blood pressure 144 mm[Hg] Sweta Verhoff PA-C Work Phone: [facility] 06-11-2024 11:32-0400 Body height 152.4 cm Agusto Aichholz ASSISTANT PROFESSOR OF CRIMINAL JUSTICE Work Phone: [facility] 06-11-2024 11:32-0400 Body mass index (BMI) [Ratio] 25.19 kg/m2 Agusto Aichholz ASSISTANT PROFESSOR OF CRIMINAL JUSTICE Work Phone: [facility] 06-11-2024 11:32-0400 Body temperature 98.1 [degF] Agusto Aichholz ASSISTANT PROFESSOR OF CRIMINAL JUSTICE Work Phone: [facility] 06-11-2024 11:32-0400 Body weight 58.51 kg Agusto Aichholz ASSISTANT PROFESSOR OF CRIMINAL JUSTICE Work Phone: [facility] 06-11-2024 11:32-0400 Diastolic blood pressure 82 mm[Hg] Agusto Aichholz ASSISTANT PROFESSOR OF CRIMINAL JUSTICE Work Phone: [facility] 06-11-2024 11:32-0400 Heart rate 75 /min Agusto Aichholz ASSISTANT PROFESSOR OF CRIMINAL JUSTICE Work Phone: [facility] 06-11-2024 11:32-0400 Respiratory rate 18 /min Agusto Aichholz ASSISTANT PROFESSOR OF CRIMINAL JUSTICE Work Phone: [facility] 06-11-2024 11:32-0400 SaO2% (BldA) [Mass fraction] 97 % Agusto Aichholz ASSISTANT PROFESSOR OF CRIMINAL JUSTICE Work Phone: [facility] 06-11-2024 11:32-0400 Systolic blood pressure 140 mm[Hg] Agusto Aichholz ASSISTANT PROFESSOR OF CRIMINAL JUSTICE Work Phone: [place] [id number] 15:05-0400 Body height 154.[address] [facility] 06-05-2024 15:05-0400 Body mass index (BMI) [Ratio] 23.4 kg/m2 [facility] 06-05-2024 15:05-0400 Body temperature 97.6 [degF] [facility] 06-05-2024 15:05-0400 Body weight 56.[address] [facility] 06-05-2024 15:05-0400 Diastolic blood pressure 75 mm[Hg] [facility] 06-05-2024 15:05-0400 Heart rate 86 /min [facility] 06-05-2024 15:05-0400 Respiratory rate 16 /min [facility] 06-05-2024 15:05-0400 SaO2% (BldA) [Mass fraction] 97 % [facility] 06-05-2024 15:05-0400 Systolic blood pressure 123 mm[Hg] [facility] 05-01-2024 10:45-0400 Diastolic blood pressure 96 mm[Hg] Juanito Barnard MD Work Phone: [facility] 05-01-2024 10:45-0400 Heart rate 74 /min Juanito Barnard MD Work Phone: [facility] 05-01-2024 10:45-0400 Systolic blood pressure 173 mm[Hg] Juanito Barnard MD Work Phone: [facility] 04-16-2024 14:25-0400 Body height 152.4 cm Agusto Olmstead ASSISTANT PROFESSOR OF CRIMINAL JUSTICE Work Phone: [facility] 04-16-2024 14:25-0400 Body mass index (BMI) [Ratio] 24.88 kg/m2 Agusto Olmstead ASSISTANT PROFESSOR OF CRIMINAL JUSTICE Work Phone: [facility] 04-16-2024 14:25-0400 Body temperature 97.81 [degF] Agusto Olmstead ASSISTANT PROFESSOR OF CRIMINAL JUSTICE Work Phone: [facility] 04-16-2024 14:25-0400 Body weight 57.79 kg Agusto Olmstead ASSISTANT PROFESSOR OF CRIMINAL JUSTICE Work Phone: [facility] 04-16-2024 14:25-0400 Diastolic blood pressure 80 mm[Hg] Agustosahara Zapataholz ASSISTANT PROFESSOR OF CRIMINAL JUSTICE Work Phone: [facility] 04-16-2024 14:25-0400 Heart rate 80 /min Agustosahara Zapataholz ASSISTANT PROFESSOR OF CRIMINAL JUSTICE Work Phone: [facility] 04-16-2024 14:25-0400 Respiratory rate 18 /min Agusto Jodiholz ASSISTANT PROFESSOR OF CRIMINAL JUSTICE Work Phone: [facility] 04-16-2024 14:25-0400 SaO2% (BldA) [Mass fraction] 95 % Agustosahara Barlowz ASSISTANT PROFESSOR OF CRIMINAL JUSTICE Work Phone: [facility] 04-16-2024 14:25-0400 Systolic blood pressure 116 mm[Hg] Agusto Zapataholz ASSISTANT PROFESSOR OF CRIMINAL JUSTICE Work Phone: [facility] 03-26-2024 10:48-0400 Body mass index (BMI) [Ratio] 24.41 kg/m2 Carmenza Nolen MD Work Phone: [facility] 03-26-2024 10:48-0400 Body weight 56.7 kg Carmenza Nolen MD Work Phone: [facility] Comment on above: [facility] 01-12-2024 13:50-0400 Diastolic blood pressure 69 mm[Hg] Taurus Ballard MD Work Phone: [facility] 01-12-2024 13:50-0400 Heart rate 75 /min Taurus Ballard MD Work Phone: [facility] 01-12-2024 13:50-0400 Systolic blood pressure 142 mm[Hg] Taurus Ballard MD Work Phone: [facility] 10-25-2023 15:12-0500 Blood Pressure Location HEIDY ARNOLD [facility] 10-25-2023 15:12-0500 Body temperature 96.8 [degF] HEIDY CATALINA [facility] 10-25-2023 15:12-0500 Diastolic blood pressure 78 mm[Hg] HEIDY CATALINA [facility] 10-25-2023 15:12-0500 Heart rate 86 /min HEIDY CATALINA [facility] 10-25-2023 15:12-0500 Systolic blood pressure 122 mm[Hg] HEIDY CATALINA [facility] 08-01-2023 15:00-0500 Body height 154.[address] [facility] 06-08-2023 13:00-0400 Body height 154.94 cm Tondra Mapus Other [facility] Other 06-08-2023 13:00-0400 Body mass index (BMI) [Ratio] 25.37 kg/m2 Tondra Mapus Other [facility] Other 06-08-2023 13:00-0400 Body weight 60.92 kg Tondra Mapus Other [facility] Other 06-08-2023 13:00-0400 Diastolic blood pressure 66 mm[Hg] Tondra Mapus Other [facility] Other 06-08-2023 13:00-0400 Respiratory rate 18 /min Tondra Mapus Other [facility] Other 06-08-2023 13:00-0400 SaO2% (BldA) [Mass fraction] 100 % Tondra Mapus Other [facility] Other 06-08-2023 13:00-0400 Systolic blood pressure 107 mm[Hg] Tondra Mapus Other [facility] Other 05-18-2023 11:00-0400 Body height 154.94 cm Tondra Mapus Other [facility] Other 05-18-2023 11:00-0400 Body mass index (BMI) [Ratio] 24.69 kg/m2 Tondra Mapus Other [facility] Other 05-18-2023 11:00-0400 Body weight 59.29 kg Tondra Mapus Other [facility] Other 05-18-2023 11:00-0400 Diastolic blood pressure 96 mm[Hg] Tondra Mapus Other [facility] Other 05-18-2023 11:00-0400 Respiratory rate 18 /min Tondra Mapus Other [facility] Other 05-18-2023 11:00-0400 SaO2% (BldA) [Mass fraction] 97 % Tondra Mapus Other [facility] Other 05-18-2023 11:00-0400 Systolic blood pressure 161 mm[Hg] Tondra Mapus Other [facility] Other 02-22-2023 08:34-0400 Blood Pressure Location Lisa Porras [facility] 02-22-2023 08:34-0400 Diastolic blood pressure 66 mm[Hg] Lisa Lue [facility] 02-22-2023 08:34-0400 Heart rate 76 /min Lisa Lue [facility] 02-22-2023 08:34-0400 Systolic blood pressure 106 mm[Hg] Lisa Lue [facility] 12-27-2022 16:00-0400 Body height 154.94 cm Eli [employer] Other [facility] Other 12-27-2022 16:00-0400 Body mass index (BMI) [Ratio] 26.11 kg/m2 Eli [employer] Other [facility] Other 12-27-2022 16:00-0400 Body temperature 96.5 [degF] Azyanet [employer] Other [facility] Other 12-27-2022 16:00-0400 Body weight 62.69 kg Azyanet [employer] Other [facility] Other 12-27-2022 16:00-0400 Diastolic blood pressure 98 mm[Hg] Aziz [employer] Other [facility] Other 12-27-2022 16:00-0400 Respiratory rate 18 /min [employer]zy[employer]et [employer] Other [facility] Other 12-27-2022 16:00-0400 SaO2% (BldA) [Mass fraction] 98 % [employer] Other [facility] Other 05-09-2023 16:00-0400 Systolic blood pressure 151 mm[Hg] Eli Sprague Other [place] [facility] Other 09-21-2022 08:42-0500 Blood Pressure Location Lisa Lue [facility] 09-21-2022 08:42-0500 Diastolic blood pressure 67 mm[Hg] Lisa Lue [facility] 09-21-2022 08:42-0500 Heart rate 74 /min Lisa Lue [facility] 09-21-2022 08:42-0500 Systolic blood pressure 103 mm[Hg] Lisa Lue [facility] Encounters Encounter Date Encounter Type Care Provider Facility Start: 08-08-2024 End: 08-08-2024 Clinisync Result Encounter Agusto Olmstead NP Work Phone: [facility] External [facility] Unsolicited Start: 08-08-2024 End: 08-08-2024 Clinisync Result Encounter Agusto Olmstead NP Work Phone: [facility] Unsolicited Start: 07-15-2024 End: 07-26-2024 Refann Barreto RN [facility] Comment on above: 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; Complex regional pain syndrome type 1 of right upper extremity Start: 07-03-2024 End: 07-03-2024 Office outpatient visit 25 minutes Sweta Li PA-C Work Phone: [facility] Comment on above: Complex regional jeffrey n syndrome type 1 of right upper extremity (Primary Dx); Encounter for long-term opiate analgesic use Start: 07-03-2024 End: 07-03-2024 ambulatory SWETA LI [facility] Start: 06-26-2024 End: 06-26-2024 Telephone encounter Adama Velasco RN Work Phone: Urology Comment on above: 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; Returning Patient's Call Start: 06-11-2024 End: 06-11-2024 Bamboo flowsheet Agusto Olmstead ASSISTANT PROFESSOR OF CRIMINAL JUSTICE Work Phone: [facility] Start: 06-11-2024 End: 06-11-2024 Bamboo flowsheet Agusto Olmstead ASSISTANT PROFESSOR OF CRIMINAL JUSTICE Work Phone: [facility] Start: 06-11-2024 End: 06-11-2024 Office outpatient visit 25 minutes Agusto Olmstead NP Work Phone: [facility] Comment on above: Type 2 diabetes maria m itus with hyperglycemia, with long-term current use of insulin (CMS/[facility]) (Primary Dx); Type 2 diabetes mellitus [...] diabetes mellitus with diabetic neuropathy, unspecified whether snf insulin use (CMS/HCC); RSD (reflex sympathetic dystrophy); Continuous leakage of urine; 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 Nephrology Ashlie Work Phone: Start: 05-10-2024 Non-patient / Non-visit [facility] Work Phone: Start: 05-08-2024 End: 05-08-2024 Refill Agusto Aysha ASSISTANT PROFESSOR OF CRIMINAL JUSTICE Work Phone: [facility] Comment on above: [...] Start: 04-26-2024 End: 04-27-2024 Non-patient / Non-visit [facility] Work Phone: Start: 04-26-2024 End: 05-01-2024 Clinisync [...] Department Unsolicited Start: 04-24-2024 End: 04-24-2024 ambulatory [facility] Start: 04-24-2024 End: 04-24-2024 ambulatory [facility] Start: 04-18-2024 End: 04-18-2024 Refill Agusto Cainz ASSISTANT PROFESSOR OF CRIMINAL JUSTICE Work Phone: [facility] Comment on above: Chronic cough (Prima ry Dx) Start: 04-16-2024 End: 04-16-2024 Office outpatient visit 25 minutes Agusto Olmstead ASSISTANT PROFESSOR OF CRIMINAL JUSTICE Work Phone: [facility] Comment on above: Chronic cough (Prima ry Dx); Type 2 diabetes mellitus with diabetic chronic kidney disease (HCC) ([facility]/HCC); Chronic kidney disease, stage 3b (HCC) ([facility]/HCC); Hyperparathyroidism, unspecified ([facility]/HCC); Rheumatoid arthritis, unspecified ([facility]/HCC); Malignant neoplasm of cervix uteri, unspecified ([facility]); Type 2 diabetes mellitus with hyperglycemia, with long-term current use of insulin ([facility]) Start: 04-16-2024 End: 04-16-2024 ambulatory AGUSTO AICHHOLZ Not Available Start: 04-16-2024 End: 04-16-2024 Bamboo flowsheet Agusto Olmstead ASSISTANT PROFESSOR OF CRIMINAL JUSTICE Work Phone: [facility] Start: 04-16-2024 End: 04-16-2024 Bamboo flowsheet Agusto Aysha ASSISTANT PROFESSOR OF CRIMINAL JUSTICE Work Phone: [facility] CW [facility] Start: 04-15-2024 End: 04-15-2024 ambulatory [facility] Start: 04-09-2024 End: 04-09-2024 ambulatory CARMENZA NOLEN Facility:[facility] Start: 04-09-2024 End: 04-09-2024 Patient encounter procedure Carmenza Nolen MD Work Phone: Urology Comment on above: Neurogenic bladder ( Primary Dx); BURKE (stress urinary incontinence, female) Start: 04-09-2024 End: 04-09-2024 Telemedicine consultation with patient Carmenza Nolen MD Work Phone: Urology Start: 04-08-2024 End: 04-08-2024 ambulatory [facility] Start: 03-29-2024 End: 03-29-2024 Nursing evaluation of patient and report [facility] Comment on above: Stress incontinence (Primary Dx); Dysfunctional voiding of urine Start: 03-29-2024 End: 03-29-2024 ambulatory [facility] Facility:[facility] Start: 03-27-2024 ambulatory Nuria garrett APRN.CNP Work Phone: Pulmonary Medicine Start: 03-26-2024 End: 03-26-2024 ambulatory CARMENZA NOLEN Facility:[facility] Start: 03-26-2024 End: 03-26-2024 Patient encounter procedure Carmenza Nolen MD Work Phone: Urology Comment on above: Retention of urine ( Primary Dx); Screening for genitourinary condition; Type 2 diabetes mellitus with hyperglycemia, with long-term current use of insulin (HCC); BURKE (stress urinary incontinence, female) Start: 03-16-2024 End: 03-16-2024 ambulatory JYOTHI SHELTON [facility] Start: 03-15-2024 End: 03-15-2024 ambulatory ZACKERY HUGHESAN [facility] Start: 02-26-2024 Telephone encounter Flavio Coon RN Ur ology Start: 02-12-2024 Telephone encounter Vonnie Wilder RN Ur ology Comment on above: Results - Ct Start: 02-01-2024 End: 02-01-2024 ambulatory [facility] Facility:[facility] Start: 02-01-2024 End: 02-01-2024 Subsequent hospital visit by physician Arrival Time Radiology Work Phone: Radiology Pet CT Comment on above: Other hydronephrosis [N13.39] Start: 01-24-2024 End: 01-24-2024 ambulatory SWETA LI [facility] Start: 01-17-2024 End: 01-17-2024 ambulatory AGUSTO OLMSTEAD Not Available Start: 01-12-2024 End: 01-12-2024 Patient encounter procedure Taurus Ballard MD Work Phone: Urology Comment on above: Other hydronephrosis (Primary Dx); Screening for genitourinary condition Start: 01-12-2024 End: 01-12-2024 ambulatory [facility] Facility:[facility] Start: 12-21-2023 End: 12-21-2023 ambulatory AGUSTO AICHHOLZ Not Available Start: 12-13-2023 End: 12-13-2023 ambulatory SWETA LI [facility] Start: 11-16-2023 End: 11-16-2023 ambulatory AGUSTO AICHHOLZ Not Available Start: 11-06-2023 Refill Asia Barreto RN [facility] Comment on above: 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; Complex regional pain syndrome type 1 of right upper extremity Start: 11-02-2023 ambulatory PA-C HEIDY ARNOLD F acility: [place] Start: 10-25-2023 End: 10-26-2023 ambulatory PA-C HEIDY ARNOLD Facility:[facility] Start: 10-25-2023 End: 10-25-2023 Patient encounter procedure HEIDY ARNOLD [facility] [place] Start: 10-14-2023 End: 10-14-20[facility] Start: 10-13-2023 End: 10-13-2023 ambulatory [facility] Start: 10-11-2023 End: 10-11-2023 ambulatory AGUSTO AICHHOLZ Not Available Start: 10-11-2023 Patient encounter procedure Agusto Aysha ASSISTANT PROFESSOR OF CRIMINAL JUSTICE Work Phone: [facility] Start: 10-10-2023 [facility] Comment on above: 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; Complex regional pain syndrome type 1 of right upper extremity Start: 09-29-2023 End: 09-29-2023 ambulatory [facility] Start: 09-29-2023 End: 09-29-2023 ambulatory Drew Esqueda Research Coordinator [facility] Provider Adult Comment on above: CHRISTOPHER IRB# [id number] Start: 09-28-2023 E-mail encounter fro m caregiver Drew Roldankimberly Esqueda Research Coordinator [facility] Start: 09-27-2023 Telephone encounter Drew Sole Bert tayla Research Coordinator [facility] Provider Adult Comment on above: Research F/U Start: 09-26-2023 Telephone encounter Drew Sole Bert tayla Research Coordinator [facility] Provider Adult Comment on above: Research F/U Start: 09-12-2023 End: 09-13-2023 ambulatory PA-C HEIDY ARNOLD Facility:[facility] [place] Start: 09-12-2023 End: 09-12-2023 Patient encounter procedure HEIDY ARNOLD [facility] Start: 09-07-2023 Refill Yesenia Burnett RN [facility] Comment on above: 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 Start: 09-05-2023 End: 09-05-2023 ambulatory Tondra Juliaus Other [place] [facility] Other Start: 09-05-2023 Telephone encounter Tona Mapus [facility] Start: 08-09-2023 End: 08-09-2023 ambulatory [facility] Start: 08-09-2023 End: 08-09-2023 ambulatory [facility] Start: 08-01-2023 End: 08-01-2023 Patient encounter procedure [facility] Michael Work Phone: Start: 07-18-2023 End: 07-19-2023 ambulatory PA-C HEIDY ARNOLD Facility:[facility] [place] Start: 07-05-2023 End: 07-05-2023 Orders Only Taurus Ballard MD Work Phone: Urology Comment on above: Kidney cyst, acquire d (Primary Dx) Start: 07-05-2023 Telephone encounter Eli Sprague [facility] Nephrology Start: 06-28-2023 End: 06-29-2023 ambulatory Lisa Porras Facility:[facility] Start: 06-28-2023 End: 06-28-2023 Patient encounter procedure Lisa PulidoIrina Vern [facility] Start: 06-26-2023 End: 06-26-2023 ambulatory Tondra Mapus Other [facility] Other Start: 06-26-2023 Telephone encounter Tondra Mapus [facility] Start: 06-23-2023 Telephone encounter Heidy harris RN Urology Comment on above: Surgical Followup Start: 06-22-2023 End: 06-23-2023 ambulatory TAURUS BALLARD Facility:[facility] Start: 06-19-2023 ambulatory Taurus newton MD Work Phone: Urology Comment on above: Aislinn Wheeler upcomin g procedure Start: 06-15-2023 Telephone encounter Vonnie Wilder RN Ur ology Comment on above: Pre-Op Teaching Start: 06-12-2023 End: 06-12-2023 ambulatory Tondra Mapus Other [facility] Other Start: 06-12-2023 Telephone encounter Tondra Mapus [facility] Start: 06-08-2023 End: 06-08-2023 Lab Drop off HEIDY ARNOLD [facility] Start: 06-08-2023 End: 06-08-2023 Patient encounter procedure AGUSTO OLMSTEAD [facility] Start: 06-08-2023 (PUMP/CGM) Pump / Sensor Tondra Mapus [facility] Start: 06-08-2023 End: 06-09-[address] [facility] Other Start: 05-22-2023 End: 05-23-2023 ambulatory Lisa M. Lue [facility] Start: 05-22-2023 End: 05-22-2023 Patient encounter procedure Lisa Porras [facility] Start: 05-18-2023 End: 05-18-2023 ambulatory Sara Augustine Other [facility] Other Start: 05-18-2023 FQ visit new patient Sara Augustine [facility] Start: 05-18-2023 Telephone encounter Taurus rees MD Work Phone: Urology Comment on above: Follow Up Start: 05-17-2023 End: 05-17-2023 ambulatory TAURUS BALLARD Facility:[facility] Start: 05-11-2023 End: 2023 ambulatory PA-C HEIDY ARNOLD [facility] Start: 05-11-2023 End: 05-11-2023 Lab Drop off HEIDY ARNOLD [facility] Start: 05-03-2023 End: 05-04-2023 ambulatory Lisa M. Lue Facility:[facility] Start: 04-18-2023 End: 04-19-2023 ambulatory PA-C HEIDY ARNOLD [facility] Start: 04-18-2023 End: 04-19-2023 ambulatory Lisa M. Lue Facility:[facility] Start: 04-18-2023 End: 04-18-2023 Lab Drop off HEIDY ARNOLD [facility] Start: 04-18-2023 End: 04-18-2023 Patient encounter procedure Lisa Porras [facility] Start: 04-04-2023 End: 04-04-2023 ambulatory Brigette Wesley Other [facility] Other Start: 04-04-2023 Telephone encounter Brigette Wesley [facility] Start: 02-22-2023 End: 02-23-2023 ambulatory Lisa Porras Facility: [place] Start: 02-22-2023 End: 02-22-2023 Patient encounter procedure Lisa Porras [facility] Start: 01-09-2023 End: 01-09-2023 ambulatory Azyanet Mendenhalls Other [facility] Other Start: 01-09-2023 Telephone encounter Eli Mendenhalls [facility] Start: 01-03-2023 End: 01-04-2023 ambulatory BEAD CUTTER AGUSTO AICHHOLZ Facility:[facility] Start: 12-28-2022 End: 12-29-2022 ambulatory BEAD CUTTER AGUSTO AICHHOLZ Facility:[facility] Start: 12-27-2022 End: 12-27-2022 ambulatory Aziz Bakhous Other [facility] Other Start: 12-27-2022 Office outpatient ne w 30 minutes Aziz Bakhous [facility] Start: 12-15-2022 End: 12-16-2022 ambulatory BEAD CUTTER AGUSTO AICHHOLZ Facility:[facility] Start: 12-14-2022 End: 12-15-2022 ambulatory RAMON HUNTLEY Facility:[facility] Start: 10-27-2022 End: 10-28-2022 ambulatory BEAD CUTTER AGUSTO AICHHOLZ Facility:[facility] Start: 10-24-2022 End: 10-25-2022 ambulatory BEAD CUTTER AGUSTO AICHHOLZ Facility:[facility] Start: 10-12-2022 End: 10-13-2022 ambulatory BEAD CUTTER AGUSTO AICHHOLZ Facility:[facility] Start: 10-05-2022 End: 10-06-2022 ambulatory BEAD CUTTER AGUSTO AICHHOLZ Facility:[facility] Start: 09-29-2022 End: 09-30-2022 ambulatory BEAD CUTTER AGUSTO AICHHOLZ Facility:[facility] Start: 09-21-2022 End: 09-22-2022 ambulatory PETER D HIGHLANDER Facility:[facility] Start: 09-21-2022 End: 09-21-2022 Patient encounter procedure Lisa Porras [facility] Start: 09-15-2022 End: 09-16-2022 ambulatory BEAD CUTTER AGUSTO AICHHOLZ Facility:[facility] Start: 09-13-2022 End: 09-13-2022 Patient encounter procedure HEIDY ARNOLD [facility] Start: 09-08-2022 End: 09-09-2022 ambulatory BEAD CUTTER AGUSTO AICHHOLZ Facility:[facility] Start: 09-02-2022 End: 09-03-2022 ambulatory PETER D HIGHLANDER Facility:[facility] Start: 08-26-2022 End: 08-27-2022 ambulatory PETER D HIGHLANDER Facility:[facility] Start: 08-09-2022 End: 08-10-2022 ambulatory PETER D HIGHLANDER Facility:[facility] Start: 08-05-2022 End: 08-06-2022 ambulatory PETER D HIGHLANDER Facility:[facility] Start: 08-04-2022 End: 08-05-2022 ambulatory PETER D HIGHLANDER Facility:[facility] Start: 08-03-2022 End: 08-04-2022 ambulatory BEAD CUTTER AGUSTO AICHHOLZ Facility:[facility] Start: 08-02-2022 End: 08-03-2022 ambulatory BEAD CUTTER AGUSTO AICHHOLZ Facility:[facility] Start: 08-01-2022 End: 08-02-2022 ambulatory BEAD CUTTER AGUSTO AICHHOLZ Facility:[facility] Start: 07-19-2022 End: 07-20-2022 ambulatory BEAD CUTTER AGUSTO AICHHOLZ Facility:[facility] Start: 07-08-2022 End: 07-09-2022 ambulatory BEAD CUTTER AGUSTO AICHHOLZ Facility:[facility] Start: 07-06-2022 End: 07-07-2022 ambulatory BEAD CUTTER AGUSTO AICHHOLZ Facility:[facility] Start: 07-05-2022 End: 07-06-2022 ambulatory [facility] Facility:H1 Start: 06-28-2022 End: 06-29-2022 ambulatory [facility] Facility:H1 Start: 06-24-2022 End: 06-25-2022 ambulatory [facility] Facility:H1 Start: 06-11-2022 End: 06-16-2022 Evaluation and management of inpatient DR NENO VIEIRA . Facility:H1 Start: 06-02-2022 End: 06-02-[address] NELL PALMA Facility:H1 Start: 06-02-2022 End: 06-03-2022 ambulatory [facility] Facility:H1 Start: 2022 End: 2022 ambulatory RAQUEL SABA . Facility:H1 Start: 01-27-2021 End: 01-27-2021 Telephone encounter Barb Silva MD Work Phone: Nephrology Comment on above: Appointment Procedures Date Procedure Procedure Detail Performing Clinician Start: 08-08-2024 MLR HEMOGLOBIN A1C Agusto Aysha ASSISTANT PROFESSOR OF [employer]IMINAL JUSTICE Work Phone: Start: 05-01-2024 Urnls dip stick/tabl et rgnt auto w/o microscopy Bulk Order Provider Start: 04-26-2024 BLOOD CULTURE 1 Generic External Data Provider Start: 04-26-2024 BLOOD CULTURE 2 Generic External Data Provider Start: 04-25-2024 Bacteria identified in Urine by Culture Generic External Data Provider Start: 04-17-2024 Mammography Agusto Leticia hills ASSISTANT PROFESSOR OF [employer]IMINAL JUSTICE Work Phone: Start: 03-26-2024 Urnls dip stick/tabl [...] H/O: hysterectomy History of hysterectomy Agusto Olmstead ASSISTANT PROFESSOR OF [employer]INAL [employer]ICE Work Phone: Start: 06-22-2023 Laparoscopic partial nephrectomy of left kidney HEIDY ARNOLD Start: 05-22-2023 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 Ricardo Rocha Start: 06-13-2022 Detachment at Left Foot, Partial 1st Ray, Open Approach KIARA OLMSTEAD Start: 06-13-2022 Microscopic examinat ion of blood, culture BEAD CUTTER AGUSTO AYSHA Comment on above: Performed By: #### B LDCX1 ####[facility] [id number] [place], [place] [address]Dr. Ricardo Rocha Start: 06-11-2022 Detachment at Left [...] 04-28-2026 Screening for malignant neoplasm of colon [facility] Start: 07-03-2025 Adult BMI Screening Adult BMI Screening [facility] Start: 07-03-2025 Tobacco Screening Tobacco Screening [facility] Start: 04-24-2025 Adult BMI Screening Adult BMI Screening [facility] Start: 04-24-2025 Tobacco Screening Tobacco Screening [facility] Start: 04-17-2025 Screening for malignant neoplasm of breast [facility] Start: 01-31-2025 Creatinine measurement Serum Creatinine [facility] Start: 01-10-2025 Pneumococcal Vaccine: 65+ Years (1 of 2 - PCV) Pneumococcal Vaccine: 65+ Years (1 of 2 - PCV) [facility] Comment on above: Postponed from 1964 (Patient Refus ed) Start: 10-23-2024 Urine screening for protein Diabetes: Urine Protein Screening [facility] Start: 10-13-2024 Tobacco Screening Tobacco Screening [facility] Start: 10-11-2024 Medicare Annual Wellness (AWV) Medicare Annual Wellness (AWV) [facility] Start: 10-09-2024 End: 10-09-2024 Patient encounter procedure 10/09/2024 11:15 AM EST Office Visit [facility] [address] [place] [phone] Sweta Li, PROMISE [address] [place] [address] [facility] Start: 09-29-2024 Tobacco Screening Tobacco Screening [facility] Start: 09-03-2024 Complete blood count Hemoglobin/Hematocrit [facility] Start: 09-03-2024 Creatinine measurement Serum Creatinine [facility] Start: 08-27-2024 End: 08-27-2024 Patient encounter procedure 08/27/2024 11:30 AM EST Office Visit [facility] [address] [place] [address] Agusto Olmstead, ASSISTANT PROFESSOR OF [employer]IMINAL JUSTICE [address] [place] [phone] [facility] Start: 08-09-2024 Adult BMI Screening Adult BMI Screening [facility] Start: 08-09-2024 Tobacco Screening Tobacco Screening [facility] Start: 06-26-2024 End: 06-26-2024 Patient encounter procedure 06/26/2024 12:30 PM EST Office Visit [facility] [address] [place] [phone] Sweta Li, PROMISE [address] [place], [place] [phone] [facility] Start: 06-24-2024 End: 06-24-2024 Patient encounter procedure 06/24/2024 11:00 AM EST Office Visit [facility] [address] [place] [address] Agusto Olmstead, LUIS [address] [place] [phone] [facility] Start: 06-23-2024 Hemoglobin/Hematocrit Hemoglobin/Hematocrit [facility] Start: 06-23-2024 Serum Creatinine Serum Creatinine [facility] Start: 06-11-2024 End: 06-11-2025 Basic metabolic 1998 panel - Serum or Plasma Basic metabolic panel Lab Routine Type 2 diabetes mellitus with hyperglycemia, with long-term current use of insulin ([facility]) Expected: 06/11/2024 (Approximate), Expires: 06/11/2025 [facility] Work Phone: Comment on above: Expected: 06/11/2024 (Approximate), Expi res: 06/11/2025 Start: 06-11-2024 End: 06-11-2025 Hemoglobin A1c/Hemoglobin.total in Blood Hemoglobin A1c Lab Routine Type 2 diabetes mellitus with hyperglycemia, with long-term current use of insulin ([facility]/HCC) Expected: 06/11/2024 (Approximate), Expires: 06/11/2025 [facility] Comment on above: Expected: 06/11/2024 (Approximate), Expi res: 06/11/2025 Start: 06-11-2024 End: 06-11-2024 Patient encounter procedure 06/11/2024 11:30 AM EDT Office Visit [facility] [address] [place] [address] Agusto Olmstead NP [address] [place] [phone] Type 2 diabetes mellitus with diabetic chronic kidney disease (CMS/HCC); Chronic kidney disease, stage 3b (HCC) (CMS/HCC); Hyperparathyroidism, unspecified (CMS/HCC); Malignant neoplasm of cervix uteri, unspecified (CMS/HCC); Rheumatoid arthritis, unspecified (CMS/HCC) [facility] Comment on above: Type 2 diabetes mellitus with diabetic c hronic kidney disease (CMS/HCC); Chronic kidney disease, stage 3b (HCC) (CMS/HCC); Hyperparathyroidism, unspecified (CMS/HCC); Malignant neoplasm of cervix uteri, unspecified (CMS/HCC); Rheumatoid arthritis, unspecified (CMS/HCC) Start: 06-06-2024 Hemoglobin/Hematocrit Hemoglobin/Hematocrit [facility] Start: 06-06-2024 Serum Creatinine Serum Creatinine [facility] Start: 06-04-2024 Hemoglobin A1c measurement Diabetes: Hemoglobin A1C [facility] Start: 05-28-2024 End: 05-28-2024 Patient encounter procedure 05/28/2024 1:20 PM EDT Office Visit [facility] [address] [place] [address] Agusto Olmstead NP [address] [place] [phone] [facility] Start: 05-10-2024 End: 05-10-2024 ambulatory 05/10/2024 11:30 AM EDT [facility] [address] [address] Juanito Barnard MD [address] [place] [address] add on per staff message Urology Comment on above: add on per staff message Start: 05-01-2024 End: 07-31-2024 Basic metabolic 2000 panel - Serum or Plasma BASIC METABOLIC PANEL Lab Routine Stage 3b chronic kidney disease (HCC) Expected: 05/01/2024, Expires: 07/31/2024 [facility] Work Phone: Comment on above: Expected: 05/01/2024, Expires: Start: 05-01-2024 End: 07-31-2024 CYSTATIN C CYSTATIN C Lab Routine Stage 3b chronic kidney disease (HCC) Expected: 05/01/2024, Expires: 07/31/2024 [facility] Comment on above: Expected: 05/01/2024, Expires: Start: 05-01-2024 End: 05-01-2024 Patient encounter procedure 05/01/2024 10:00 AM EDT Office Visit Urology [address] [address] Juanito Barnard MD [address] [place] [address] discuss bladder augment per Dr. Nolen Urology Comment on above: discuss bladder augment per Dr. Nolen Start: 04-21-2024 Covid-19 Vaccine () Covid-19 Vaccine () [facility] Start: 04-21-2024 COVID-19 Vaccine () COVID-19 Vaccine ( season) [facility] Start: 04-21-2024 Influenza vaccination [facility] Start: 04-16-2024 End: 04-16-2024 Patient encounter procedure 04/16/2024 2:20 PM EDT Office Visit [facility] [address] [place] [address] Agusto Olmstead NP [address] [place] [address] Type 2 diabetes mellitus with diabetic chronic kidney disease (HCC) (CMS/HCC); Chronic kidney disease, stage 3b (HCC) (CMS/HCC); Hyperparathyroidism, unspecified (CMS/HCC); Rheumatoid arthritis, unspecified (CMS/HCC); Malignant neoplasm of cervix uteri, unspecified (CMS/HCC) [facility] Comment on above: Type 2 diabetes mellitus with diabetic c hronic kidney disease (HCC) (CMS/HCC); Chronic kidney disease, stage 3b (HCC) (CMS/HCC); Hyperparathyroidism, unspecified (CMS/HCC); Rheumatoid arthritis, unspecified (CMS/HCC); Malignant neoplasm of cervix uteri, unspecified (CMS/HCC) Start: 04-16-2024 End: 04-16-2025 XR Chest 2 Views XR chest 2 views Imaging Routine Chronic cough Expected: 04/16/2024 (Approximate), Expires: 04/16/2025 [facility] Work Phone: Comment on above: Expected: 04/16/2024 (Approximate), Expi res: 04/16/2025 Start: 04-09-2024 End: 04-09-2024 Follow-up encounter 04/09/2024 9:30 AM EDT [facility] [address] [place], [place] [phone] Carmenza Nolen MD [address] [place] [address] 1 week follow up per dr. nolen Urology Comment on above: 1 week follow up per dr. nolen Start: 04-04-2024 Hepatitis B screening Urine Albumin:Creatinine Ratio [facility] Start: 03-29-2024 End: 03-29-2024 Nursing evaluation of patient and report 03/29/2024 3:00 PM EDT Nurse Visit Urology [address] [address] [employer] [address] [place] [address] [R33.9] Retention of urine Urology Comment on above: [R33.9] Retention of urine Start: 03-26-2024 End: 03-26-2024 Patient encounter procedure 03/26/2024 11:00 AM EDT Office Visit Urology [address] [facility] [place] [address] Carmenza Nolen MD [address] [place] [address] Ballard Urology Comment on above: Follow up per Dr. 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 [facility] Comment on above: Continuous leakage of Urine Start: 01-22-2024 DIABETES SCREEN DIABETES SCREEN [facility] Start: 01-19-2024 End: 04-19-2024 CREATININE BLD CREATININE BLD Lab Routine Other hydronephrosis Expected: 01/19/2024 (Approximate), Expires: 04/19/2024 [facility] Comment on above: Expected: 01/19/2024 (Approximate), Expi res: 04/19/2024 Start: 01-19-2024 End: 02-10-2025 CT Kidney WO and W contrast IV CT UROGRAM WO/W IVCON Radiology Routine Other hydronephrosis Expected: 01/19/2024 (Approximate), Expires: 02/10/2025 [facility] Work Phone: Comment on above: Expected: 01/19/2024 (Approximate), Expi res: 02/10/2025 Start: 12-29-2023 Screening for malignant neoplasm of breast Mammogram [facility] Start: 11-22-2023 End: 11-22-2023 Patient encounter procedure 11/22/2023 11:15 AM EDT Office Visit [facility] [address] [place] [address] Sweta Li, PAJuan JoseC [address] [place], [place] [phone] [facility] Start: 10-25-2023 End: 10-25-2023 Patient encounter procedure 10/25/2023 12:45 PM EST Office Visit [facility] [address] [place] [phone] Sweta Li, PAJuna JoseC [address] [place], [place] [phone] [facility] Start: 10-13-2023 End: 10-13-2023 Njx anes stellate ganglion crv sympathetic INJECTION BLOCK NERVE STELLATE GANGLION NECK Complex regional pain syndrome type 1 of right upper extremity 10/13/2023 12:44 PM EST [facility] Start: 10-13-2023 End: 10-13-2023 Patient encounter procedure 10/13/2023 9:55 AM EST Appointment [facility] [address] [place] [phone] Zackery Pedro MD [address] [place], [place] [phone] [facility] Start: 10-05-2023 End: 01-04-2024 Basic metabolic 2000 panel - Serum or Plasma BASIC METABOLIC PNL Lab Routine Kidney cyst, acquired Expected: 10/05/2023 (Approximate), Expires: 01/04/2024 [facility] Work Phone: Comment on above: Expected: 10/05/2023 (Approximate), Expi res: 01/04/2024 Start: 10-05-2023 End: 08-03-2024 US KIDNEY/BLADDER US KIDNEY/BLADDER Radiology Routine Kidney cyst, acquired Expected: 10/05/2023 (Approximate), Expires: 08/03/2024 [facility] Work Phone: Comment on above: Expected: 10/05/2023 (Approximate), Expi res: 08/03/2024 Start: 09-06-2023 Hemoglobin A1c measurement HbA1C [facility] Start: 09-06-2023 Hemoglobin A1c/Hemoglobin.total in Blood HbA1C [facility] Start: 08-21-2023 Advance Directive Discussion Advance Directive Discussion [facility] Start: 08-21-2023 Behavioral Health Screening Behavioral Health Screening [facility] Start: 08-21-2023 Depression Assessment Depression Assessment [facility] Start: 2023 Advance Directive Discussion Advance Directive Discussion [facility] Start: 2023 Bone Density Screening Bone Density Screening [facility] Start: 2023 Fall Risk Screening Fall Risk Screening [facility] Start: 2023 Screening for osteoporosis Bone Density Screening [facility] Start: 04-21-2023 Covid-19 Vaccine ( season) Covid-19 Vaccine ( season) [facility] Start: 04-21-2023 Covid-19 Vaccine ( season) Covid-19 Vaccine ( season) [facility] Start: 04-21-2023 Influenza vaccination [facility] Start: 08-21-2022 Depression Assessment Depression Assessment [facility] Start: 04-21-2021 Influenza vaccination INFLUENZA (Season Ended) [facility] Start: 2018 Hepatitis B Vaccine (1 of 3 - Risk 3-dose series) Hepatitis B Vaccine (1 of 3 - Risk 3-dose series) [facility] Start: 2018 RSV Vaccine (1 - 1-dose 60+ series) RSV Vaccine (1 - 1-dose 60+ series) [facility] Start: 2018 RSV Vaccine (1 - Risk 60-74 years 1-dose series) RSV Vaccine (1 - Risk 60-74 years 1-dose series) [facility] Start: 2008 Administration of varicella zoster vaccine Zoster (Shingles) Vaccine (1 of 2) [facility] Start: 2008 Screening for malignant neoplasm of colon [facility] Start: 2008 SHINGRIX VACCINE (1 of 2) SHINGRIX VACCINE (1 of 2) [facility] Start: 2003 Cologuard (FIT-DNA) Cologuard (FIT-DNA) [facility] Start: 2003 Colonoscopy Colonoscopy [facility] Start: 2003 Colorectal Cancer Screening Colorectal Cancer Screening [facility] Start: [address] Colonography [facility] Start: 2003 Fecal Occult Blood Fecal Occult Blood [facility] Start: 2003 LIPID SCREEN LIPID SCREEN [facility] Start: 2003 Screening for malignant neoplasm of colon [facility] Start: 2003 Sigmoidoscopy Sigmoidoscopy [facility] Start: 1998 Mammography [facility] Start: 1998 Screening for malignant neoplasm of breast Mammogram Screening [facility] Start: 1988 HPV TESTING HPV TESTING [facility] Start: 1979 PAP TESTING PAP TESTING [facility] Start: 1977 DTaP,Tdap and Td Vaccines (1 - Tdap) DTaP,Tdap and Td Vaccines (1 - Tdap) [facility] Start: 1977 Urine microalbumin profile [facility] Start: 1976 Annual PCP Team Chronic Disease Visit Annual PCP Team Chronic Disease Visit [facility] Start: 1976 Anxiety Screening Anxiety Screening [facility] Start: 1976 BP Controlled (<130/80) BP Controlled (<130/80) [facility] Start: 1976 Depression Screening Depression Screening [facility] Start: 1976 Diabetic foot examination Diabetic Foot Exam [facility] Start: 1976 Hepatitis B surface antibody level LDL Cholesterol [facility] Start: 1976 HEPATITIS C SCREENING HEPATITIS C SCREENING [facility] Start: 1976 Hepatitis C screening Hepatitis C Screening [facility] Start: 1976 HIV SCREENING HIV SCREENING [facility] Start: 1976 HIV screening HIV Screening [facility] Start: 1976 Spirometry Spirometry [facility] Start: 1970 Adult depression screening assessment DEPRESSION SCREENING [facility] Start: 1970 COVID-19 VACCINE (1) COVID-19 VACCINE (1) [facility] Start: 1968 3 comp foot exam completed Diabetic Foot Exam [facility] Start: 1968 Diabetic foot examination Diabetic Foot Exam [facility] Start: 1968 Glaucoma screening [facility] Start: 1968 Hepatitis B screening Urine Albumin:Creatinine Ratio [facility] Start: 1968 Hepatitis C antibody, confirmatory test Dilated Retinal Exam [facility] Start: 1964 Pneumococcal Vaccine: 65+ (1 - PCV) Pneumococcal Vaccine: 65+ (1 - PCV) [facility] Start: 1964 Pneumococcal Vaccine: 65+ (1 of 2 - PCV) Pneumococcal Vaccine: 65+ (1 of 2 - PCV) [facility] Start: 1958 Glaucoma screening Diabetic Ophthalmology Exam [facility] Start: 1958 Screening for malignant neoplasm of colon [facility] Start: 1958 Urine screening for protein Urine Microalbumin [facility] FLUROURODYNAMICS WITH EMG FLUROU RODYNAMICS WITH EMG Procedures Routine Retention of urine BURKE (stress urinary incontinence, female) Ordered: 03/26/2024 [facility] Work Phone: Comment on above: Ordered: 03/26/2024 Njx anes stellate ganglion crv sympathetic INJECTION BLOCK NERVE STELLATE GANGLION NECK Complex regional pain syndrome type 1 of right upper extremity [place] [facility] Njx anes stellate ganglion crv sympathetic INJECTION BLOCK NERVE STELLATE GANGLION NECK Complex regional pain syndrome type 1 of right upper extremity [facility] Renal function 2000 panel - Serum or Plasma [facility] Immunizations Immunization Date Immunization Notes Care Provider Lukas pacheco 06-23-2022 tuberculin skin test ; purified protein derivative solution, intradermal Agusto Aichholz ASSISTANT PROFESSOR OF [employer]IMINAL JUSTICE Work Phone: [facility] 06-16-2022 tuberculin skin test ; purified protein derivative solution, intradermal Agusto Aichholz ASSISTANT PROFESSOR OF [employer]INAL JUSTICE Work Phone: [facility] 04-02-2021 SARS-CoV-2 (COVID-19 ) mRNA-1273 vaccine HEIDY ARNOLD [facility] 03-02-2021 Moderna SARS-CoV-2 Vaccination Agusto Olmstead NP Work Phone: [facility] 12-07-2020 SARS-CoV-2 (COVID-19 ) mRNA-0843 vaccine HEIDY ARNOLD [facility] 06-03-2016 influenza virus vaccine, unspecified formulation HEIDY ARNOLD [facility] 06-03-2016 influenza, seasonal, injectable, preservative free Drew Esqueda Research Coordinator [facility] Payers Date Payer Category Payer Medicare O [employer] MEDICARE [id number] 2023 Medicare (Managed Care) [facility] [id number] 2023 Private Health Insurance [id number] 2023 Self-pay 2022 Medicare [id number] 2022 Medicare [id number] 2006 Medicare MEDICARE MEDICAR E A [id number] 2006-Present [place] Medicare [id number] 2003 Worker's Comp Other Managed Care [facility] [id number] 2003 Unknown [id number] 1959 Medicare [id number] 2.16.840.1.823368.19 1959 Unknown [id number] 1959 Unknown [id number] 1958 Unknown [id number] 2.16.840.1.734873.3.579.2 .593 1958 Unknown [id number] 2.16.840.1.882931.3.579.2 .593 1958 Unknown [id number] 2.16.840.1.486472.3.579.2 .593 1958 Unknown [id number] 2.16.840.1.618545.3.579.2 .593 1958 Unknown [id number] 2.16.840.1.604406.3.579.2 .593 1958 Unknown [id number] 2.16.840.1.299521.3.579.2 .593 1958 Unknown [id number] 2.16.840.1.297199.3.579.2 .593 1958 Unknown [id number] 2.16.840.1.022239.3.579.2 .593 1958 Unknown [id number] 2.16.840.1.060033.3.579.2 .593 1958 Unknown [id number] 2.16.840.1.158838.3.579.2 .593 1958 Unknown [id number] 2.16.840.1.525480.3.579.2 .593 1958 Unknown [id number] 2.16.840.1.964734.3.579.2 .593 1958 Unknown [id number] 2.16.840.1.917332.3.579.2 .593 1958 Unknown [id number] 2.16.840.1.831747.3.579.2 .593 1958 Unknown [id number] 2.16.840.1.876016.3.579.2 .593 1958 Unknown [id number] 2.16.840.1.438712.3.579.2 .593 1958 Unknown [id number] 2.16.840.1.483159.3.579.2 .593 1958 Unknown [id number] 2.16.840.1.171406.3.579.2 .593 1958 Unknown [id number] 2.16.840.1.546931.3.579.2 .593 1958 Unknown [id number] 2.16.840.1.133604.3.579.2 .593 1958 Unknown [id number] 2.16.840.1.621844.3.579.2 .593 1958 Unknown [id number] 2.16.840.1.373797.3.579.2 .593 1958 Unknown [id number] 2.16.840.1.814683.3.579.2 .593 1958 Unknown [id number] 2.16.840.1.197757.3.579.2 .593 1958 Unknown [id number] 2.16.840.1.507603.3.579.2 .593 1958 Unknown [id number] 2.16.840.1.880172.3.579.2 .593 1958 Unknown [id number] 2.16.840.1.831481.3.579.2 .593 1958 Unknown [id number] 2.16.840.1.118930.3.579.2 .593 1958 Unknown [id number] 2.16.840.1.784034.3.579.2 .593 1958 Unknown [id number] 2.16.840.1.413922.3.579.2 .593 1958 Unknown [id number] 2.16.840.1.801927.3.579.2 .593 1958 Unknown [id number] 2.16.840.1.701651.3.579.2 .727 1958 Unknown [id number] 2.16.840.1.173820.3.579.2 .727 1958 Unknown [id number] 2.16.840.1.242404.3.579.2 .727 1960 Unknown [id number] 2.16.840.1.046521.3.579.2 .727 1960 Unknown [id number] 2.16.840.1.296852.3.579.2 .727 1960 Unknown [id number] 2.16.840.1.596310.3.579.2 .727 1960 Unknown [id number] 2.16.840.1.132896.3.579.2 .72 1960 Unknown [id number] 2.16.840.1.707024.3.579.2 .72 1960 Unknown [id number] 2.16.840.1.642294.3.579.2 .72 1960 Unknown [id number] 2.16.840.1.719189.3.579.2 .72 1960 Unknown [id number] 2.16.840.1.329067.3.579.2 .1960 Unknown [id number] 2.16.840.1.508161.3.579.2 .1960 Unknown [id number] 2.16840.1.489146.3.579.2 .1958 Unknown [id number] 2.16.840.1.311865.3.579.2 .72 1960 Unknown [id number] 2.16.840.1.965369.3.579.2 .1960 Unknown [id number] 2.16.840.1.773915.3.579.2 .1286 1960 Unknown [id number] 2.16840.1.365044.3.579.2 .1258 1960 Unknown [id number] 2.16.840.1.206085.3.579.2 .125 1960 Unknown [id number] 2.16.840.1.060375.3.579.2 .1258 1960 Unknown [id number] 2.16.840.1.114368.3.579.2 .1258 1960 Unknown [id number] 2.16.840.1.997998.3.579.2 .125 1960 Unknown [id number] 2.16.840.1.499513.3.579.2 .1259 1960 Unknown [id number] 2.16.840.1.243214.3.579.2 .1285 1960 Unknown [id number] 2.16.840.1.394883.3.579.2 .1285 1960 Unknown [id number] 2.16.840.1.066965.3.579.2 .1285 1960 Unknown [id number] 2.16.840.1.423685.3.579.2 .1285 1960 Unknown [id number] 2.16.840.1.348242.3.579.2 .1285 1960 Unknown [id number] 2.16.840.1.960644.3.579.2 .1285 1960 Unknown [id number] 2.16.840.1.402147.3.579.2 .1285 1960 Unknown [id number] 2.16.840.1.500443.3.579.2 .1285 1960 Unknown [id number] 2.16.840.1.196400.3.579.2 .1285 1960 Unknown [id number] 2.16.840.1.558004.3.579.2 .1285 1960 Unknown [id number] 2.16.840.1.333375.3.579.2 .1285 1960 Unknown [id number] 2.16.840.1.254022.3.579.2 .1285 1960 Unknown [id number] 2.16.840.1.962033.3.579.2 .1285 1960 Unknown [id number] 2.16.840.1.270155.3.579.2 .1285 1960 Unknown [id number] 2.16.840.1.017180.3.579.2 .1286 1960 Unknown [id number] 2.16.840.1.053842.3.579.2 .1286 Medicare [id number] Unknown [employer] [id number] Unknown [id number] 2.16.840.1.042529.3.579.2 .531 Social History Date Type Detail Facility Start: 01-17-2021 End: 10-11-2023 Tobacco smoking status NHIS Never smoker [facility] Start: 01-17-2021 End: 10-11-2023 Tobacco use and exposure Never used [facility] Start: 01-17-2021 End: 04-09-2024 Alcohol intake Current drinker of alcohol (finding) [facility] Start: 01-17-2021 History SDOH Alcohol Frequency 1 [facility] Start: 01-17-2021 Alcohol Comment socially [facility] Start: 1960 Sex Assigned At Not [facility] file [facility] Exposure to SARS-CoV -2 (event) Not sure [facility] Tobacco smoking status Never [facility] Start: 06-06-2023 End: 10-11-2023 Sex Assigned At Female [facility] Start: 06-06-2023 End: 10-11-2023 History of Social function [facility] Start: 06-06-2023 Alcohol Comment rarely--holida y or special occ [facility] Start: 08-09-2023 End: 07-03-2024 Alcohol intake Current non-drinker of alcohol (finding) [facility] Are you now , , , , never or living with a partner? [facility] How hard is it for y ou to pay for the very basics like food, housing, medical care, and heating Not very hard [facility] (I/We) worried wheth er (my/our) food would run out before (I/we) got money to buy more. DK or Refused [facility] Start: 1960 Sex Assigned At Female F [facility] Start: 04-16-2024 End: 06-11-2024 Alcoholic beverage [...] [facility] Start: 03-26-2015 [facility] (finding[facility] Medical Equipment Procedure Code Equipment Code Equipment Origin al Text Equipment Identifier Dates 4 times daily use [id number] Start: 10-16-2023 End: 10-15-2024 Functional Status Date Assessment Result Facility 10-25-2023 Functional Status N/A [facility] 05-22-2023 Functional Status N/A [facility] 05-11-2023 Functional Status [facility] 02-22-2023 Functional Status N/A [facility] 09-21-2022 Functional Status N/A [facility] 09-13-2022 Functional Status N/A [facility] Clinical Notes 01-17-2021 to 07-15-2024 Telephone [...] this encounter [facility] 07-15-2024 Telephone encounter Note Last Office Visit: 07/03/2024 Next Office Visit: 10/09/2024 Last Urine Drug Screen: Lab Results Component Value Date BENZOSCRN Negative 08/09/2023 OARRS appropriate [facility] 07-03-2024 History of Presen t illness Narrative [facility] [address] [place] [address] Patient: Aislinn Wheeler Sex: female : 1960 Age: 64 y.o. PCP: AGUSTO OLMSTEAD, ASHVIN-BEAD CUTTER 07/03/2024 Aislinn Wheeler is here for a(n) follow up for her [employer] work injury. Patient reports she is awaiting [...] cart, cold/heat). Treatments tried: Tizanidine, Lyrica, Gabapentin, Center, Elevation, NSAIDs x 2 (Ibuprofen, Aleve), Flexeril, BioFreeze, Immobilization w/min relief, Celebrex & compound cream w/no relief, Rt Stellate Ganglion NB w/mod relief. The treatment provided moderate relief. The effect of pain on patient's ADLS: Moderate Impairment. Past Medical History: Diagnosis Date Arthritis RHEUMATOID Arthritis OSTEOARTHRITIS Asthma At risk for UTI related to indwelling catheter Broken toes 08/2022 Bronchitis Cancer ([facility] UTERINE Chronic kidney disease 2015 stage 3 per pt 04/05/23 COVID-19 virus infection 09/28/2021 Diabetes mellitus ([facility]) Fibromyalgia GERD (gastroesophageal reflux disease) History of degenerative disc disease Hypertension Joint pain Lupus ([facility]) Mitral valve prolapse Osteoarthritis Pneumonia released from hospital on 11/12/21 RSD (reflex sympathetic dystrophy) Stroke ([facility]) Past Surgical History: Procedure Laterality Date AMPUTATION OF REPLICATED TOES Left 06/2022 ANKLE SURGERY CATARACT EXTRACTION, BILATERAL Bilateral 03/22 and 04/13 CHOLECYSTECTOMY HYSTERECTOMY INJECTION BLOCK NERVE STELLATE GANGLION NECK Right 03/15/2024 Performed by Zackery Pedro MD at [facility] INJECTION BLOCK NERVE STELLATE GANGLION NECK Right 10/13/2023 Performed by Zackery Pedro MD at [facility] INJECTION BLOCK NERVE STELLATE GANGLION NECK Right 12/23/2022 Performed by Zackery Pedro MD at [facility] INJECTION BLOCK NERVE STELLATE GANGLION NECK Right 05/06/2022 Performed by Zackery Pedro MD at [facility] INJECTION BLOCK NERVE STELLATE GANGLION NECK Right 10/15/2021 Performed by Zackery Pedro MD at [facility] INJECTION BLOCK STELLATE GANGLION N/A 02/17/2017 Performed by Zackery Pedro MD at [facility] INJECTION BLOCK STELLATE GANGLION NECK Right 06/18/2018 Performed by Zackery Pedro MD at [facility] INJECTION BLOCK STELLATE GANGLION NECK N/A 05/15/2017 Performed by Zackery Pedro MD at [facility] INJECTION BLOCK STELLATE GANGLION NECK Right Right 05/22/2020 Performed by Zackery Pedro MD at [facility] INJECTION BLOCK STELLATE GANGLION NECK Right N/A 10/04/2019 Performed by Zackery Pedro MD at [facility] INJECTION BLOCK STELLATE GANGLION NECK Right Right 05/10/2019 Performed by Zackery Pedro MD at [facility] INJECTION BLOCK STELLATE GANGLION NECK Right Right 12/31/2018 Performed by Zackery Pedro MD at [facility] INJECTION BLOCK STELLATE GANGLION NECK Right Right 10/09/2017 Performed by Zackery Pedro MD at [facility] KNEE SURGERY REMOVAL STIMULATOR SPINAL CORD N/A 12/29/2017 Performed by Zackery Pedro MD at [facility] SHOULDER SURGERY Allergies Allergen Reactions Latex Added [...] Resource Strain: Medium Risk (10/11/2023) Received from [facility], [facility] Overall Financial Resource Strain (CARDIA) Difficulty of Paying Living Expenses: Somewhat hard Food Insecurity: No Food Insecurity (07/03/2024) Hunger Screening Food Insecurity - Worry: Never True Food Insecurity - Inability: Never True Transportation Needs: No Transportation Needs (10/11/2023) Received from [facility], [facility] PRAPARE - Transportation Lack of Transportation (Medical): No Lack of Transportation (Non-Medical): No Physical Activity: Inactive (10/11/2023) Received from [facility] Exercise Vital Sign Days of Exercise per Week: 0 days Minutes of Exercise per Session: 0 min Stress: Stress Concern Present (10/11/2023) [facility] [place] of Occupational Health - Occupational Stress Questionnaire Feeling of Stress : Very much Social Connections: Socially Isolated (10/11/2023) Received from [facility] Social Connection and Isolation Panel [NHANES] Frequency of Communication with Friends and Family: More than three times a week Frequency of Social Gatherings with Friends and Family: More than three times a week Attends Restorationism Services: Never Active Member of Clubs or Organizations: No Attends Club or Organization Meetings: Never Marital Status: Interpersonal Safety: Unknown (10/12/2023) Received from [facility] Safety & Environment Fear of Current or Ex-Partner: Not on file Emotionally Abused: Not on file Physically Abused: Not on file Sexually Abused: Not on file Physically or Sexually Abused: Not on file Housing Instability: Low Risk (10/11/2023) Received from [facility] Housing Stability Vital Sign Unable to Pay [...] use Continue Lyrica 150 mg TID and Center 7.5/325 mg TID PRN Proceed with Dr. [...] medication that requires intensive monitoring for toxicity Center. Center pill count completed at today's office visit. Dose: 7.5-325 x3 Daily Quantity Dispensed 90 Quantity Remaining 70 Fill date on prescription bottle 06/24/24 appropriate Patient educated to bring medication to every office visit. Center and Lyrica was refilled at today's office [...] PA-C 07/03/24 1245 [facility] Telephone encounter Note Called and spoke [...] locally Cystatin C and CMP sent to [facility] ( ; fx [phone]) and asked her to go to lab [...] she wants to proceed with surgery Thanks [facility] Work Phone: 06-26-2024 Miscellaneous Notes Called and [...] locally Cystatin C and CMP sent to [facility] ( ; fx [phone]) and asked her to go to lab [...] with surgery Thanks documented in this encounter [facility] 06-11-2024 Miscellaneous Notes Last Office Visit: 04/24/2024 Next Office Visit: 06/26/2024 Last Urine Drug Screen: Lab Results Component Value Date BENZOSCRN Negative 08/09/2023 OARRS appropriate documented in this encounter [facility] 06-11-2024 Telephone encounter Note Last Office Visit: 04/24/2024 Next Office Visit: 06/26/2024 Last Urine Drug Screen: Lab Results Component Value Date BENZOSCRN Negative 08/09/2023 OARRS appropriate [facility] 06-11-2024 History of Presen t illness Narrative Associated Problem(s): Skin lesion of face Suspect to be AK Pt request referral to derm Associated Problem(s): Malignant neoplasm of cervix uteri, unspecified (CMS/HCC) Had hyst Associated Problem(s): Rheumatoid arthritis, unspecified (CMS/HCC) Does not follow with Rheumatology Associated Problem(s): Type 2 diabetes mellitus with hyperglycemia, with long-term current use of insulin ([facility]) Will recheck A1c level Continue current insulin at this time Hx of non compliance with fu appts w specialist Associated Problem(s): Chronic kidney disease, stage 3b (HCC) ([facility]) Has to get labs for nephrology and fu appt with them Discussed with pt the importance of adequte blood pressure and blood sugar control to help slow the progression of CKD Associated Problem(s): Continuous leakage of urine Continue with urology Associated Problem(s): Primary hypertension ([facility]) Has not been taking both amlodipine and metoprolol We will start over with amlodipine at 10mg daily Fu in 2 weeks for blood pressure check Recheck in office 188/90 Associated Problem(s): RSD (reflex sympathetic dystrophy) Continue with pain mgmt Associated Problem(s): Type 2 diabetes mellitus with diabetic neuropathy, unspecified whether snf insulin use ([facility]) Reports increase in neuropathy symptoms, is [...] is not being taken. She sees a buckle gluer.Eye exam is not current. SUBJECTIVE: MEDICATIONS: Current [...] test strip 4 times daily use HYDROcodone-acetaminophen (Center) 7.5-325 MG tablet 1 tablet, Oral, 3 [...] Diagnosis Date Amputation of left great toe ([facility]) Cervical cancer ([facility]) 10/11/2023 had Hysterectomy Charcot's joint of foot, left 10/11/2023 Chronic kidney disease, stage III (moderate) ([facility]) ([facility]) 10/11/2023 Fatty liver 10/11/2023 History of hysterectomy 10/11/2023 Cervical cancer Hyperkalemia Hyponatremia Leakage of urine from ureter Lupus ([facility]) Memory impairment of gradual onset MOCA: [...] of nail of digit of hand Osteoporosis ([facility]) 10/11/2023 Post-menopausal 10/11/2023 Rheumatoid arthritis ([facility]) 10/11/2023 RSD (reflex sympathetic dystrophy) 10/11/2023 Type 2 diabetes mellitus with diabetic neuropathy, unspecified whether snf insulin use ([facility] 10/11/2023 Visual impairment 10/11/2023 HAD BILATERAL CATARCT [...] diabetes mellitus with diabetic neuropathy, unspecified whether snf insulin use (CMS/HCC) Reports increase in neuropathy [...] (CMS/HCC) - Primary documented in this encounter [facility] 06-10-2024 Note Received referral ag ain with no C9 approval attached. Spoke with referring provider's office. They will send message to the referral's office to fax C9 approval. I provided my contact information and fax number. [facility] 05-09-2024 Note Reviewed pt's referr al. Pt is being referred for SCS trial consult with [employer], however, it states in the note that [...] do not schedule if pt calls back. [facility] 05-01-2024 History of Presen t illness Narrative Images from the original note were not included. [facility] NEW PATIENT [...] chronic constipation Juanito Barnard MD Associate Staff [facility] Urological [facility]ney [place] Department of Urology I spent a total of 30 minutes on the date of the service which included preparing to see the patient, [id number] patient care, completing clinical documentation, obtaining and/or reviewing separately obtained history, performing a medically appropriate examination, counseling and educating the patient/family/caregiver, and ordering medications, tests, or procedures. >50% of time was devoted to patient counseling. documented in this encounter [facility] 05-01-2024 Note HNO ID: [id number] Author: JUANITO BARNARD MD Service: ? Author Type: Physician Type: Progress Notes Filed: 05/01/2024 12:12 Note Text: [facility] [place] [facility] NEW PATIENT CLINIC NOTE SERVICE DATE: [...] Note Patient Outreach (UR OLMN) AISLINN WHEELER ([id number]) 1960 F Date Time Provider Department 05/01/24 [...] for genitourinary condition [Z13.89] Order(s):URINALYSIS, REFLEX MICROSCOPIC [[id number]] Order #: [id number]. #:[id number] Prescriptions as of 05/06/2024 - metoprolol succinate [...] Encounter Status:Closed by EPIC, PRODUSER on 05/06/24 [facility] 04-16-2024 History of Presen t illness Narrative [...] test strip 4 times daily use HYDROcodone-acetaminophen (Center) 7.5-325 MG tablet 1 tablet, Oral, 3 [...] Diagnosis Date Amputation of left great toe ([facility]) Cervical cancer ([facility]) 10/11/2023 had Hysterectomy Charcot's joint of foot, left 10/11/2023 Chronic kidney disease, stage III (moderate) ([facility]) ([facility]) 10/11/2023 Fatty liver 10/11/2023 History of hysterectomy 10/11/2023 Cervical cancer Hyperkalemia Hyponatremia Leakage of urine from ureter Lupus ([facility]) Memory impairment of gradual onset MOCA: [...] of nail of digit of hand Osteoporosis ([facility]) 10/11/2023 Post-menopausal 10/11/2023 Rheumatoid arthritis ([facility]) 10/11/2023 RSD (reflex sympathetic dystrophy) 10/11/2023 Type 2 diabetes mellitus with diabetic neuropathy, unspecified whether flow nurse insulin use ([facility]) 10/11/2023 Visual impairment 10/11/2023 HAD BILATERAL [...] hyperglycemia, with long-term current use of insulin ([facility]) A1c is improving Stage 3a chronic kidney disease (HCC) ([facility]) Relevant Orders Ambulatory referral to Nephrology Malignant neoplasm of cervix uteri, unspecified ([facility]) Had hyst Rheumatoid arthritis, unspecified ([facility]) Does not follow with Rheumatology Type 2 diabetes mellitus with diabetic chronic kidney disease (HCC) ([facility]) A1c is coming down Cont current meds Chronic kidney disease, stage 3b (HCC) ([facility]) Will re refer to Nephrology Hyperparathyroidism, unspecified ([facility]) Relevant Orders Ambulatory referral to Nephrology Chronic cough - Primary Check xray Consider antihistamine and nasal steroids Will await the results Relevant Orders XR chest 2 views documented in this encounter [facility] 04-15-2024 Note HNO ID: [id number] Author: ?, ?, ? Service: ? Author Type: ? Type: Progress Notes Filed: 04/15/2024 07:29 Note Text: Incidental Lung Nodule Enrollment Outreach attempt: 3rd Attempt Outreach status: Complete Enrolled in Lung Nodule program: No Declined reason: Other Lung Nodule Program Location: [place] Two letter attempts, no response. Discharge letter sent. [facility] 04-15-2024 History of Presen t illness Narrative Incidental Lung Nodule Enrollment Outreach attempt: 3rd Attempt Outreach status: Complete Enrolled in Lung Nodule program: No Declined reason: Other Lung Nodule Program Location: [place] Two letter attempts, no response. Discharge letter sent. documented in this encounter [facility] 04-15-2024 Note Patient Outreach (PU LMMN) LIAMAISLINN PAEZ ([id number]) 1960 F Date Time Provider Department 04/15/24 CHIOMA DURÁN During your visit today, we recorded the following information about you: Chioma Durán 04/15/2024 7:29 AM Signed Incidental Lung Nodule Enrollment Outreach attempt: 3rd Attempt Outreach status: Complete Enrolled in Lung Nodule program: No Declined reason: Other Lung Nodule Program Location: [place] Two letter attempts, no response. Discharge letter [...] Text Encounter Status:Closed by DURÁNCHIOMA on 04/15/24 [facility] 04-09-2024 Note HNO ID: [id number] Author: CARMENZA NOLEN MD Service: ? Author [...] bladder with poor compliance and BURKE at PRISON of 100ml. Bladder remodeling without VUR. Valsalva [...] visit. Either the patient or their legal sales support representative has been informed of the risks and benefits of -- and alternatives to -- treatment through a remote evaluation and consents to proceed with the evaluation remotely. [facility] 04-09-2024 History of Presen t [...] bladder with poor compliance and BURKE at PRISON of 100ml. Bladder remodeling without VUR. Valsalva [...] visit. Either the patient or their legal sales support representative has been informed of the risks and benefits of -- and alternatives to -- treatment through a remote evaluation and consents to proceed with the evaluation remotely. documented in this encounter [facility] 04-08-2024 Note HNO ID: [id number] Author: ?, ?, ? Service: ? Author Type: ? Type: Progress Notes Filed: 04/08/2024 09:39 Note Text: Incidental Lung Nodule Enrollment Outreach attempt: 2nd Attempt Outreach status: Complete Enrolled in Lung Nodule program: Referred Lung Nodule outreach: Needs outreach Lung Nodule Program Location: [place] Two letter attempts [facility] 04-08-2024 History of Presen t illness Narrative Incidental Lung Nodule Enrollment Outreach attempt: 2nd Attempt Outreach status: Complete Enrolled in Lung Nodule program: Referred Lung Nodule outreach: Needs outreach Lung Nodule Program Location: [place] Two letter attempts documented in this encounter [facility] 04-08-2024 Note Patient Outreach (PU LMMN) AISLINN WHEELER ([id number]) 1960 F Date Time Provider Department 04/08/24 CHIOMA DURÁN During your visit today, we recorded the following information about you: Chioma Durán 04/08/2024 9:39 AM Signed Incidental Lung Nodule Enrollment Outreach attempt: 2nd Attempt Outreach status: Complete Enrolled in Lung Nodule program: Referred Lung Nodule outreach: Needs outreach Lung Nodule Program Location: [place] Two letter attempts Allergies As of Date: [...] Encounter Status:Closed by CHIOMA DURÁN on 04/08/24 [facility] 04-02-2024 Note HNO ID: [id number] Author: CARMENZA NOLEN MD Service: ? Author Type: Physician Type: Progress Notes Filed: 04/02/2024 11:52 Note Text: [facility] [...] bladder with poor compliance and BURKE at PRISON of 100ml. Bladder remodeling without VUR. Valsalva voiding with atonic detrusor. Will refer to consider bladder augmentation. Carmenza Nolen MD Voiding cystourethrogram- Voiding Cystourethrogram Patient Name - Aislinn Wheeler Date - April 02, 2024 Imaging exam - VCUG Number of images saved - 11 Patient position - Sitting Radiologic Findings: A congressional assistant radiograph was obtained. The bony and soft tissue structures are within normal. 147 ccs contrast were used to fill the bladder. The bladder outline is irregular/trabeculated and abnormal shaped appearing. There is no ureteral reflux. During the voiding phase there is abnormal bladder neck opening and urethra is not visualized. Bladder emptying is not visualized Read by - Carmenza Nolen MD [facility] 03-29-2024 Nurse Note [facility] URODYNAMICS LAB URODYNAMIC [...] allergy: No Females- Is patient : No Building Trades Teacher offered:Patient declines B/O UA: Yes, Negative for [...] Pt states an understanding of instructions given. [facility] 03-29-2024 Nurse Note [facility] URODYNAMICS LAB URODYNAMIC [...] allergy: No Females- Is patient : No Building Trades Teacher offered:Patient declines B/O UA: Yes, Negative for [...] of instructions given. documented in this encounter [facility] 03-27-2024 Note HNO ID: [id number] Author: NURIA READ APRN.BEAD CUTTER Service: ? Author Type: Nurse Practitioner Type: Progress Notes Filed: 03/27/2024 14:36 Note Text: Incidental Lung Nodule Enrollment Outreach attempt: 1st Attempt Outreach status: Complete Enrolled in Lung Nodule program: Referred Lung Nodule outreach: Needs outreach Lung Nodule Program Location: [facility] 03-27-2024 History of Presen t illness Narrative Incidental Lung Nodule Enrollment Outreach attempt: 1st Attempt Outreach status: Complete Enrolled in Lung Nodule program: Referred Lung Nodule outreach: Needs outreach Lung Nodule Program Location: [facility] documented in this encounter [facility] 03-27-2024 Note Patient Outreach (PM M211) AISLINN WHEELER ([id number]) 1960 F Date Time Provider Department 03/27/24 NURIA READ [id number] During your visit today, we recorded the following information about you: Nuria Read APRN.CNP 03/27/2024 2:36 PM Signed Incidental Lung Nodule Enrollment Outreach attempt: 1st Attempt Outreach status: Complete Enrolled in Lung Nodule program: Referred Lung Nodule outreach: Needs outreach Lung Nodule Program Location: [facility] Big Nodule Allergies As of Date: [...] Encounter Status:Closed by NURIA READ on 03/27/24 [facility] 03-26-2024 Instructions Carmenza Nolen MD - 03/26/2024 11:31 AM EDT Images from the original note were not included. INFORMATION ON URODYNAMICS (BLADDER FUNCTION TEST) Getting Ready for the Test You do not have to fast before the test. Begin to drink 24-32 ounces of fluid (water, cranberry juice, milk, herbal tea) 90 minutes prior to the test so you arrive at the [facility] with the urge to empty your bladder. [...] your bladder when you arrive at the [facility]. Speak with a nurse if you feel you must empty your bladder. If you are taking antibiotics for a urinary tract infection (UTI) or bladder infection, notify your physician's office immediately. We may reschedule your bladder test. Bring a list of all prescribed and clfz-oti-xmgncec medications you are taking. If you should need assistance due to a language barrier or medical needs/condition, please notify the flight crew scheduler when making your appointment and one will be provided for you ([phone]). If you are taking overactive bladder medications [...] test is finished. documented in this encounter [facility] 03-26-2024 Note HNO ID: [id number] Author: CARMENZA NOLEN MD Service: ? Author Type: Physician Type: Progress Notes Filed: 03/26/2024 11:54 Note Text: [facility] FEMALE [...] her bladder. Had bladder botox injections at [facility] about 3 mo ago with no improvement. [...] Assessed 03/26/2024 PHYSICAL EXAM: Patient declined a litigation specialist General: No acute distress, well appearing [...] and concerns were addressed. Carmenza Nolen MD [facility] 03-26-2024 History of Presen t illness Narrative [facility] FOR FEMALE [...] her bladder. Had bladder botox injections at [facility] about 3 mo ago with no improvement. [...] Assessed 03/26/2024 PHYSICAL EXAM: Patient declined a litigation specialist General: No acute distress, well appearing [...] Via bladder scan. documented in this encounter [facility] 03-26-2024 Note HNO ID: [id number] Author: MARIA TERESA JOHNSON MA Service: ? Author Type: Chef Concierge Type: Progress Notes Filed: 03/26/2024 11:54 Note Text: Pt voided upon arrival. PVR = 205 ml Via bladder scan. Pt was doing ISC, but was told she could stop. Pt instructed to give a urine specimen. 2ND Repeat PVR PVR = 135 ml Via bladder scan. [facility] 02-26-2024 Telephone encounter Note Pt LVM asking for her CT scan results. Noted in pt chart was an unread message from regarding the most recent CT scan. LVM for pt and let her know about MyChart message and provided number if pt has any further questions. [facility] 02-26-2024 Miscellaneous Notes Pt LVM asking for her CT scan results. Noted in pt chart was an unread message from regarding the most recent CT scan. LVM for pt and let her know about MyChart message and provided number if pt has any further questions. documented in this encounter [facility] 02-12-2024 Telephone encounter Note Patient LVM requesting results from 02/01/24 CT Urogram. Will update medical team [facility] 02-12-2024 Miscellaneous Notes Patient LVM requesting results from 02/01/24 CT Urogram. Will update medical team documented in this encounter [facility] 02-01-2024 History of Presen t illness Narrative [...] PATIENT PRESENTS WITH AN IMPLANTABLE OR ATTACHED BOILING TUB OPERATOR: No RADIOLOGY DEPARTMENT: CT; Exam(s) Completed: Urogram PERIPHERAL IV DATA: Site assessment: Clean,Dry and Intact, Site disposition Discontinued SIGNED BY: RT Michael(Abel) February 01, 2024 2:50 PM documented in this encounter [facility] 02-01-2024 Note HNO ID: [id number] Author: PRERNA THORPE RT(R) Service: ? Author [...] PATIENT PRESENTS WITH AN IMPLANTABLE OR ATTACHED BOILING TUB OPERATOR: No RADIOLOGY DEPARTMENT: CT; Exam(s) Completed: Urogram PERIPHERAL IV DATA: Site assessment: Clean,Dry and Intact, Site disposition Discontinued SIGNED BY: RT Michael(Abel) February 01, 2024 2:50 PM [facility] 02-01-2024 Note HNO ID: [id number] Author: HEIDY LINDA RN Service: Nursing Author [...] DATE: February 01, 2024 TIME: 2:50 PM [facility] 01-12-2024 Note HNO ID: [id number] Author: SANJANA CALLAWAY MA Service: ? Author Type: Chef Concierge Type: Progress Notes Filed: 01/12/2024 14:43 Note Text: Post Void Residual done on patient with 211 cc residual volume remaining. notified. Sanjana Callaway MA [facility] 01-12-2024 History of Presen t illness Narrative Post Void Residual done on patient with 211 cc residual volume remaining. notified. Sanjana Callaway MA [facility] FOLLOW-UP PATIENT HISTORY AND PHYSICAL [...] urogram Will refer to Dr. Tamanna Ruiz APRN.BEAD CUTTER Attending Note I have personally performed a [...] PM By signing my name below, I, Ivnaia Vidal, attest that this documentation has been prepared under the direction and in the presence of Dr. Ballard Electronically signed, Power Blanco I agree with the Chief Complaint, ROS, and Past Histories independently gathered by the clinical patient support associate and the remaining scribed note accurately describes my personal service to the patient. Dr. Taurus Ballard MD documented in this encounter [facility] 01-12-2024 Note HNO ID: [id number] Author: TAURUS BALLARD MD Service: ? Author Type: Physician Type: Progress Notes Filed: 01/12/2024 14:43 Note Text[facility] [place] [facility] [facility]IENT HISTORY AND PHYSICAL EXAM PATIENT [...] urogram Will refer to Dr. Tamanna Ruiz APRN.BEAD CUTTER Attending Note I have personally performed a [...] MD Date: 01/12/2024 (more content not included)... [facility] 11-06-2023 Miscellaneous Notes Last Office Visit: 08/09/2024 Next Office Visit: 11/22/2023 Last Urine Drug Screen: Lab Results Component Value Date BENZOSCRN Negative 08/09/2023 OARRS appropriate [facility] Telephone encounter Note Last Office Visit: 08/09/2024 Next Office Visit: 11/22/2023 Last Urine Drug Screen: Lab Results Component Value Date BENZOSCRN Negative 08/09/2023 O[facility] appropriate [facility] 10-25-2023 Hospital Discharg e instructions Patient Education [...] including vitamins, herbs, eye drops, creams, and vdtt-kut-pcousqh medicines. Any problems you or family members [...] provider tells you to take them. Taking hdwf-prp-yljszbi medicines, vitamins, herbs, and supplements. General instructions [...] Follow these instructions at home: Medicines Take zulq-isl-bzsfbjm and prescription medicines only as told by [...] provider. Document Revised: 02/11/2022 Document Reviewed: 02/11/2022 Zoe Majeste Patient Education 2022 [employer]. Follow Up Care 09/26/2023 08:43:34 With:HEIDY ARNOLD PA-C, URL Address: [address] [place] [address] When: Unknown [facility] 10-10-2023 Miscellaneous Notes Last OV: 08/12/23 Next OV: proc 10/13/23 OARRS appropriate: yes Last UDS: 08/12/23 Pharmacy: [facility] documented in this encounter [facility] 10-10-2023 Telephone encounter Note Last OV: 08/12/23 Next OV: proc 10/13/23 OARRS appropriate: yes Last UDS: 08/12/23 Pharmacy: [facility] 09-27-2023 Miscellaneous Notes Summary: [facility] IR[facility]# [id number] IRB# [id number]: Vascular events in patients undergoing same-day nonCardiac surgery - [facility] PI: Mary Rojas MD, LETY, BARNEY. Outcomes Research Department. Anesthesia [place]. [facility]. Aislinn Wheeler was unavailable at the listed phone number. We will attempt to contact the patient through [employer] message. Drew Esqueda Research Coordinator Research Coordinator documented in this encounter [facility] 09-26-2023 Miscellaneous Notes Summary: [facility] IRB# [id number] IRB# [id number]: Vascular events in patients undergoing same-day nonCardiac surgery - [facility] PI: Mary Rojas MD, LETY, BARNEY. Outcomes Research Department. Anesthesia [place]. [facility]. Aislinn Wheeler was unavailable at the listed phone number. We will attempt to contact the patient again at a later date. Drew Esqueda Research Coordinator Research Coordinator documented in this encounter [facility] 09-07-2023 Miscellaneous Notes Last OV: 08/09/2023 Next OV: --- OARRS appropriate: yes Last UDS: 08/09/2023 Pharmacy: [facility] Patient left phone message requesting refill on Center and Lyrica. Lyrica prescription signed 08/11/2023 has 1 refill. Per OARRS patient last filled Lyrica 08/11/2023. Center prescription pended for review and signature. Patient's fill dated adjusted from 09/14/23 to 09/17/23 due to recent 3 day hospitalization. documented in this encounter [facility] 09-07-2023 Telephone encounter Note Last OV: 08/09/2023 Next OV: --- OARRS appropriate: yes Last UDS: 08/09/2023 Pharmacy: [facility] Patient left phone message requesting refill on Center and Lyrica. Lyrica prescription signed 08/11/2023 has 1 refill. Per OARRS patient last filled Lyrica 08/11/2023. Center prescription pended for review and signature. [facility] 09-07-2023 Telephone encounter Note Patient's fill dated adjusted from 09/14/23 to 09/17/23 due to recent 3 day hospitalization. [facility] 09-03-2023 Note HNO ID: [id number] Author: KRYSTA SULLIVAN MD Service: Hospital Medicine [...] -- 08/31/23 1115 activity - mobilize patient (ut,oh) VTE Prophylaxis: VTE prophylaxis appropriate SIGNATURE: Krysta Sullivan MD PATIENT NAME: Aislinn Wheeler DATE: September 03, 2023 TIME: 6:31 PM [facility] 09-02-2023 Note HNO ID: [id number] Author: KRYSTA SULLIVAN MD Service: Hospital Medicine [...] -- 08/31/23 1115 activity - mobilize patient (ut,oh) VTE Prophylaxis: VTE prophylaxis appropriate SIGNATURE: Krysta Sullivan MD PATIENT NAME: Aislinn Wheeler DATE: September 02, 2023 TIME: 2:31 PM [facility] 09-02-2023 Note HNO ID: [id number] Author: NOTE, INTERFACE, ? Service: ? Author Type: ? Type: Progress Notes Filed: 09/02/2023 02:20 Note Text: Epic Scheduled Downtime: 09/02/2023 1:00:00 AM to 09/02/2023 2:04:22 AM [facility] 09-01-2023 Note HNO ID: [id number] Author: MIKE LOUIS RN Service: Care Management Author Type: Registered Nurse Type: Care Mgt Progress Note Filed: 09/01/2023 15:30 Note Text: CARE MANAGEMENT WEEKEND PLANNING NOTE NO WEEKEND DISCHARGE Disposition: TBD Anticipated Discharge Date: No weekend DC anticipated Weekend Higher Level Teaching Assistant Pager #: Girish Rogers [phone] ANATOLIY UTI - repeat UA sent - bc pending Waiting on podiatry consult SIGNATURE: Mike Louis RN PATIENT NAME: Aislinn Wheeler DATE: September 01, 2023 TIME: 3:28 PM PAGER/CONTACT #: [phone] [facility] 09-01-2023 Note HNO ID: [id number] Author: ANTHONY BARROW MD Service: Hospital Medicine [...] -- 08/31/23 1115 activity - mobilize patient (ut,co) VTE Prophylaxis: VTE prophylaxis appropriate SIGNATURE: Anthony Barrow MD PATIENT NAME: Aislinn Wheeler DATE: September 01, 2023 TIME: 11:36 AM [facility] 08-31-2023 History of Past i [...] of this encounter (statuses as of 09/27/2023) [facility]01-[facility]-2024 History of Past illness Narrative* Problem Noted Date Diagnosed Date Resolved Date Fever 08/31/2023 09/04/2023 Urinary tract infection without hematuria 08/31/2023 09/04/2023 Acute cystitis without hematuria 01/18/2021 01/21/2021 Pyelonephritis 01/17/2021 01/21/2021 Sepsis 01/17/2021 01/21/2021 Hyponatremia 01/17/2021 01/21/2021 Hyperkalemia 01/17/2021 09/04/2023 ANATOLIY (acute kidney injury) 01/17/2021 Hydronephrosis due to obstruction of ureter 01/17/2021 01/21/2021 documented as of this encounter (statuses as of 09/28/2023) [facility] History of Past illness Narrative* Problem Noted Date Diagnosed Date Resolved Date Fever 08/31/2023 09/04/2023 Urinary tract infection without hematuria 08/31/2023 09/04/2023 Acute cystitis without hematuria 01/18/2021 01/21/2021 Pyelonephritis 01/17/2021 01/21/2021 Sepsis 01/17/2021 01/21/2021 Hyponatremia 01/17/2021 01/21/2021 Hyperkalemia 01/17/2021 09/04/2023 ANATOLIY (acute kidney injury) 01/17/2021 Hydronephrosis due to obstruction of ureter 01/17/2021 01/21/2021 documented as of this encounter (statuses as of 09/28/2023) [facility]01-11-2024 NoteHNO ID: [id number] Author: TIN QUIÑONEZ LSW Service: Care Management Author Type: Laminating Machine Tender Type: Care Mgt Initial Assessment Filed: 08/31/2023 14:02 Note Text: CARE MANAGEMENT: ASSESSMENT AND DISCHARGE PLAN SERVICE DATE: August 31, 2023 SERVICE TIME: 1:42 PM PCP: Agusto Olmstead Primary Contact: Extended Emergency Contact Information Primary Emergency Contact: LOLA SEARS Mobile Relation: Grandchild Admission Status: Inpatient Insurance Provider: [facility] MEDICARE PPO Discharge Planning requested by: Per Department Practice Potential Transition Plans To Be Determined Advance Directives Current Advance Directive: None Physician Internist Attempted to Assist with AD Completion: Yes Action: Education Provided Current Living Arrangements and Support Lives with: Family members, Children Type of Residence: Private Residence (House) Support: Family members How do you manage to accomplish the following: Independent: Ambulation;Bathe/Shower;Dress;Meals/Meal Prep;Going to the bathroom;Medication Management;Transportation to appointments/community Current Services/Equipment Current Post-Acute Service(s): None Discharge Planning Patient Goal(s): General wellness [place] of Choice Explained: [place] of Choice Given: No Reason Not Given: [...] with pt at bedside. Pt lives in [place] with her grandchildren (18, 17, [...] 31, 2023 TIME: 1:42 PM CONTACT #: [id number] Evaluation note* Encounter Date Diagnosis Assessment Notes Treatment Notes Treatment Clinical Notes Jun, Vitamin B12 deficiency (ICD-10 - E53.8) [facility] Other [id number] NoteHNO ID: [id number] Author: Lakisha Kaye Service: ? Author Type: ? Type: Plan of Care Filed: 06/26/2023 9:53 AM Note Text: PHARMACY BEDSIDE DELIVERY SERVICE Patient Name: Aislinn Wheeler The marked outpatient medications were Filled at: [facility] and delivered to the patient's bedside to [facility] Medication List START taking these medications [...] your Primary Care Provider. Lakisha Kaye PAGER: [phone] June 26, 2023 9:52 [facility]11-03-2023 Miscellaneous Notes* Telephone Encounter - Heidy Garcia RN - 06/23/2023 9:03 AM EDT Patient had left robotic partial nephrectomy by Dr. Ballard on 06/22/2023 Will call for surgical follow up once discharged [facility] NoteHNO ID: [id number] Author: Taurus Ballard MD Service: Urology Author Type: Physician Type: Progress Notes Filed: 06/23/2023 1:37 PM Note Text: [facility] UROLOGY PROGRESS NOTE Name: Aislinn Wheeler Bed: [id number] Date: June 23, 2023 After Hours [facility] Urology Service Pager: [phone] ASSESSMENT AND PLAN Aislinn Wheeler is a [...] Jeet De La Fuente MD Urology Resident [facility] [place] Pager [phone] SUBJECTIVE -c/o pain, had a BM, no [...] - 06/23/2365806/23/23 07 - 06/24/23 0659 Shift 6893-8544 1884-7572 4959-9055 24 Hour Total 5464-3863 3802-3208 1981-3265 24 Hour Total INTAKE IV 1600 1600 Volume (mL) (lactated ringers iv infusion) 1000 1000 Volume (mL) (lactated ringers iv infusion) 600 600 Shift Total 1600 1600 OUTPUT Urine 300 835 183 9599 OR Urine Output 300 300 Output ( Indwelling Urinary Catheter 06/22/23 1130 Chaves 16 Fr) 764 313 5329 Tubes 20 40 60 Drain/Tube Output (Drain/Tube 06/22/23 1333 Lex Vega Right Lower Quadrant Abdomen Drain #1) 20 40 60 # of BMs Number of BMs 1 x 1 x Blood 50 50 Estimated Blood loss 50 50 Shift Total 350 026 375 5780 Weight (kg) 59 59 59 59 59 [...] We will call with pathology. Taurus Ballard MD[facility] [id number] NoteHNO ID: [id number] Author: Linda Nicholson RN Service: Nursing Author Type: Registered Nurse Type: Nursing Progress Note Filed: 06/22/2023 2:15 PM Note Text: surgical dressing: surgical glue, [facility]11-02-2023 NoteHNO ID: [id number] Author: Lola Be APRN.BATTERY ASSEMBLER DRY CELL Service: ? Author Type: Nurse Shooter'S Helper Type: Anesthesia Procedure Notes Filed: 06/22/2023 12:24 PM Note Text: ANESTHESIOLOGY PROCEDURE NOTE Airway General Information Procedure Start Time/Medication Administration: 06/22/2023 11:22 AM Patient location during procedure: OR Patient identity confirmed: arm band, care production team member and patient Staffing BATTERY ASSEMBLER DRY CELL: Lola Be APRN.BATTERY ASSEMBLER DRY CELL Performed by: QUIRINO Indications and Patient Condition [...] June 22, 2023 TIME: 12:24 PM CSN: [id number] Miscellaneous Notes* Telephone Encounter - Vonnie Wilder RN - 06/15/2023 11:24 AM EDT Attempted to call patient for pre op instructions.mailbox is full and unable to LVM. Will try again. [facility] Evaluation note* Encounter Date Diagnosis Assessment Notes [...] hyperglycemia, or diabetes medication issues. 6. Prescriptions: [employer] g6 transmitters/sensor s sent to DM. 7. [...] (ICD-10 - Z68.25) May, Other see above [facility] 10-02-2023 Note [id number]:[id number] 05-22-2023 NoteCystoscopy with Botox injection ? [...] if you have a fever over 100 degrees.[facility] 05-22-2023 Hospital Discharge instructions Patient Education [...] Up Care 05/03/2023 10:48:47 With:Lisa Porras Address: [address] [place] [phone] Business (1) [address] [address] [phone] Business (1) When: Unknown Comments:Office to schedule follow up in 1 month with [facility]09-28-2023 Evaluation note* Encounter Date Diagnosis [...] 24.0-24.9, adult (ICD-10 - Z68.24) see above [facility] Other [id number] Miscellaneous Notes* Telephone Encounter - Agusto Faulkner - 05/18/2023 12:57 PM EDT Consult notes sent back to Dr. Lisa Porras , phone [phone]. From Dr. Ballard office. [facility] NoteHNO ID: [id number] Author: Taurus Ballard MD Service: ? Author Type: Physician Type: Progress Notes Filed: 05/17/2023 1:35 PM Note Text: [facility] FOLLOW-UP PATIENT HISTORY AND PHYSICAL [...] bending or moving. Had cysto/UDS with Dr. oNlen 03/01/2021 UDS: No detrusor function on voiding- [...] (outside records) [facility] 09/28/21 IMPRESSION: Since the prior CT scan [...] threatening or minor complicatio (more content not included)...[id number] Hospital Discharge instructions Patient Education 02/22/2023 09:35:15 [...] provider. Document Revised: 12/16/2021 Document Reviewed: 12/16/2021 Zoe Majeste Patient Education 2022 [employer]. Follow Up Care 09/13/2022 14:59:43 With:Vern TAVERAS, EMELINA Hernandez, URO Address: When:Within 2 Month(s) Comments:w/ RIVAS [facility] 05-09-2023 Evaluation note* Encounter Date Diagnosis [...] N28.1) Patient follows with urology clinic in [facility] for enlarging left renal cyst. December, Hyperkalemia [...] her blood pressure persistently more than 150/90. [facility] Other 02-01-2023 Hospital Discharge instructions Patient Education [...] 07/24/2013 Document Revised: 03/27/2019 Document Reviewed: 03/27/2019 Zoe Majeste Patient Education 2020 [employer]. Follow Up Care 09/14/2022 14:44:34 With:Vern TAVERAS, [...] fried and sweet foods. General instructions Take suea-spj-daibebb and prescription medicines only as told by [...] 06/03/2010 Document Revised: 11/28/2019 Document Reviewed: 08/23/2018 Zoe Majeste Patient Education 2020 [employer]. Follow Up Care 08/24/2022 11:21:49 With:CATALINA VIRGEN, HEIDY Rodriguez, URL Address: [address] [place] [address] When: Unknown [facility] 06-09-2021 Miscellaneous Notes* Telephone Encounter - Barbara Talbot - 01/27/2021 10:30 AM EDT Scheduled 02/15 * Telephone Encounter - Barb Silva MD - 01/27/2021 9:40 AM EDT Please schedule hospital follow up with Guy Overton Deitzer, or Sasha. Virtual ok documented [facility]21 NoteHNO ID: [id number] Author: Griselda Diaz (scenios) Service: ? Author Type: ? Type: Plan [...] Generic drug: insulin detemir U-100 Griselda Diaz (Desk Clerks Supervisor) PAGER: paris January 21, 2021 4:27 [id number] NoteHNO ID: [id number] Author: ELIZABETH Kothari Service: Care Management Author Type: Laminating Machine Tender Type: Care Mgt Progress Note Filed: 01/21/2021 1:39 PM Note Text: CARE MANAGEMENT DISCHARGE NOTE SERVICE DATE: 01/21/2021 SERVICE TIME: 1300 LOS: 4 days Admission Date: 01/17/2021 DISCHARGE ARRANGEMENT (list agency and phone number) Discharge Arrangement: Home;Home Group Home Care: Nursing;PT;[facility] ASSESSMENT: Maira Davila to transport home [phone] HANDOFF COMMUNICATION: Handoff to: Other Caregiver;Primary Care Physician Primary Care Physician Name/Phone: Madeline Jordan PA-C Other Caregiver Name/Phone: [facility] TRANSPORTATION ARRANGEMENTS: Transportation Arrangements: Car (Family to transport) ADDITIONAL CONTACT RESOURCES: [facility] not able to accept. [place] of choice provided and sent to first available to accept to her service area. [facility] willing to accept. Pt concerned she does not have [place] [place] to cover services. I spoke with grdtabel who plans on paying for services out of pocket until pt's insurance becomes active February 18, 2021 Discharge Information Row Name ED to Hosp-Admission (Current) from 01/17/[address] [facility] Fax# Care to start after your appointment with internal medicine on 01/25/2021 for additional orders. The agency will be contacting you to set this up [facility] [employer] Needed Walker was delivered to hospital room prior to discharge [facility] willing to accept pending pt has her initial appointment with internal medicine on 01/25/2021. Both pt and maira Davila were advised. Dr Hansen also provided script for outpt therapy should home care fall through or cost too high for grlorenzor to cover. Lola to call [facility] to discuss further. Walker was delivered to room and prescription was sent to [facility]. Lola to brass pickler. No other homegoing needs. SIGNATURE: ELIZABETH Kothari PATIENT NAME: Aislinn Wheeler DATE: January 21, 2021 TIME: 1:32 PM PAGER/CONTACT #: [phone] [id number] NoteHNO ID: [id number] Author: Derik Daniel Service: Care Management Author Type: [address] [facility] Court Worker Type: Care Mgt Progress Note Filed: 01/21/2021 11:24 AM Note Text: CARE MANAGEMENT PROGRESS NOTE SERVICE DATE: 01/21/2021 SERVICE TIME: 950 LOS: 4 days IMM Follow Up Copy Given: Yes Copy given to:: Patient Method: In Person SIGNATURE: Derik Daniel PATIENT NAME: Aislinn Wheeler DATE: January 21, 2021 TIME: 11:23 AM PAGER/CONTACT #: [phone] [id number] NoteHNO ID: [id number] Author: Ailyn Salas RN Service: Care Management Author Type: Registered Nurse Type: Care Mgt Progress Note Filed: 01/20/2021 3:29 PM Note Text: CARE MANAGEMENT PROGRESS NOTE SERVICE DATE: 01/20/2021 SERVICE TIME: 3:09 PM LOS: 3 days [place] of Choice Given: Yes Level of Care Discussed: Home Care Financial Disclosure Provided: No Financial Disclosure Comments: [facility] does not service area [...] sent. Patient does not have a PCP. [facility] can provide a visiting [...] 20, 2021 TIME: 3:09 PM PAGER/CONTACT #: [phone] NoteHNO ID: [id number] Author: Inna Hansen DO Service: Hospital Medicine Author Type: Physician Type: Progress Notes Filed: 01/20/2021 12:37 PM Note Text: DEPARTMENT OF HOSPITAL MEDICINE PROGRESS NOTE SERVICE DATE: 01/20/2021 SERVICE TIME: 10:37 AM Hospital Medicine/Primary Attending: Inna Hansen DO NIGHT AND WEEKEND COVERAGE: DELMY COVERAGE: Days: [phone], please contact via Anyone Home Nights: [phone], please page CC Hospitalist Night coverage pager [phone] Subjective INTERVAL HPI: nausea and vomiting this [...] Non-Pharmacologic VTE Prophylaxis/Anticoagulants 01/17/212214 pneumatic compression stockings ([place] 01/17/212214 activity - [place]ize [place] VTE Prophylaxis: VTE prophylaxis appropriate Disposition: TBD Inna Hansen DO January 20, 2021 10:39 [id number] NoteHNO ID: [id number] Author: Benjamin Bernal MD Service: Urology Author [...] Bernal MD January 19, 2021 4:12 [facility]13 NoteHNO ID: [id number] Author: Shelby Lucero PharmD Service: Pharmacy Author Type: Pharmacist Type: Plan of Care Filed: 01/19/2021 11:02 AM Note Text: PHARMACY MEDICATION REVIEW Patient Name: Aislinn Wheeler : 1960 The following medications were updated within the DRIVER WHEELCHAIR medication list: Medications ADDED to DRIVER WHEELCHAIR medication list ? Albuterol HFA (replaced nebs) ? Levemir (replaced Lantus) Medications CHANGED on DRIVER WHEELCHAIR medication list ? Lyrica (added instructions) ? Symbicort (added instructions) Medications REMOVED from [facility] medication list ? Diltiazem ? Cymbalta ? [...] nothing too big . Call placed to [facility] pharmacy to clarify prescribed dose of insulin, and the only prescription for insulin [facility] has on file is for Relion 70/30 inject 25 units BID. [facility] pharmacist states this was prescribed 02/19/2020 but never picked up. The below information represents the best possible medication history: Yes Medication history completed by: Pharmacist: Shelby Lucero PharmD Source of history: Patient: Reliability of source: Appears reliable, clearly identified: [facility] (phone call) Medication nonadherence identified: Unable to assess - it is clear the patient is noncompliant with her medications (admits she has been off her meds, no insulin fills at [facility] despite patient report), but at this time unable to assess reason for nonadherence. Reconciliation completed: Yes All DRIVER WHEELCHAIR medications addressed by LIP and Medication reconciliation completed by: Shelby Lucero PharmD Medications with dose or frequency intentionally adjusted at admission: ? Center modified to 5/325 mg q6h PRN New medications at admission: ? Ceftriaxone Note patient ordered insulin regimen (Lantus 15 units QHS + sliding scale Humalog) and based on blood glucose readings, this is appropriate Patient interested in Bedside Delivery Services or using OP Pharmacy at discharge? Unable to assess Preferred outpatient pharmacy: [facility] [id number] [place] [address] [address] - [phone] Allergies: Latex Rash Comment:Added based on information [...] as instructed twice daily. Shelby Lucero, PharmD 01/19/2021voSt. [facility] Pediatric Rehabilitation [id number] NoteHNO ID: [id number] Author: Inna Hansen DO Service: Hospital Medicine Author Type: Physician Type: Progress Notes Filed: 01/19/2021 2:24 PM Note Text: DEPARTMENT OF HOSPITAL MEDICINE PROGRESS NOTE SERVICE DATE: 01/19/2021 SERVICE TIME: 9:30 AM Hospital Medicine/Primary Attending: Inna Hansen DO NIGHT AND WEEKEND COVERAGE: DELMY COVERAGE: Days: [phone], please contact via [employer] Nights: [phone], please page CC Hospitalist Night coverage pager [phone] Subjective INTERVAL HPI: no overnight events. Denies [...] Most recent imaging Assessment/Plan Problem List Sepsis ([facility]) POA: Yes Pyelonephritis POA: Yes Hydronephrosis due to obstruction of ureter POA: Yes Acute cystitis without hematuria POA: Unknown Acute bilateral obstructive uropathy POA: Yes Hyponatremia POA: Yes ANATOLIY (acute kidney injury) ([facility]) POA: Yes Hyperkalemia POA: Yes Principal Problem: Sepsis ([facility]) Pyelonephritis Complicated UTI Hydronephrosis due to [...] Non-Pharmacologic VTE Prophylaxis/Anticoagulants 01/17/212214 pneumatic compression stockings [place] 01/17/212214 activity - [place] VTE Prophylaxis: VTE prophylaxis appropriate Disposition: Home Discussed with granddaughter Lola by phone with patient's permission. Inna Hansen DO January 19, 2021 9:33 [facility] [id number] History of Past illness Narrative* Problem Noted Date Resolved Date Acute cystitis without hematuria 01/18/2021 01/21/2021 Pyelonephritis 01/17/2021 01/21/2021 Sepsis 01/17/2021 01/21/2021 Hyponatremia 01/17/2021 01/21/2021 Hyperkalemia 01/17/2021 01/21/2021 Hydronephrosis due to obstruction of ureter 12/2101/21/2021 documented as of this encounter (statuses as of 01/27/2021) [facility]21 History of Past illness Narrative* Problem Noted Date Diagnosed Date Resolved Date Acute cystitis without hematuria 01/18/2021 01/21/2021 Pyelonephritis 01/17/2021 01/21/2021 Sepsis 01/17/2021 01/21/2021 Hyponatremia 01/17/2021 01/21/2021 Hyperkalemia 01/17/2021 01/21/2021 Hydronephrosis due to obstruction of ureter 01/17/2021 01/21/2021 documented as of this encounter (statuses as of 06/09/2023) [facility] History of Past illness Narrative* Problem Noted Date Diagnosed Date Resolved Date Acute cystitis without hematuria 01/18/2021 01/21/2021 Pyelonephritis 01/17/2021 01/21/2021 Sepsis 01/17/2021 01/21/2021 Hyponatremia 01/17/2021 01/21/2021 Hyperkalemia 01/17/2021 01/21/2021 Hydronephrosis due to obstruction of ureter 01/17/2021 01/21/2021 documented as of this encounter (statuses as of 06/15/2023) [facility] History of Past illness Narrative* Problem Noted Date Diagnosed Date Resolved Date Acute cystitis without hematuria 01/18/2021 01/21/2021 Pyelonephritis 01/17/2021 01/21/2021 Sepsis 01/17/2021 01/21/2021 Hyponatremia 01/17/2021 01/21/2021 Hyperkalemia 01/17/2021 01/21/2021 Hydronephrosis due to obstruction of ureter 01/17/2021 01/21/2021 documented as of this encounter (statuses as of 06/19/2023) [facility] History of Past illness Narrative* Problem Noted Date Diagnosed Date Resolved Date Acute cystitis without hematuria 01/18/2021 01/21/2021 Pyelonephritis 01/17/2021 01/21/2021 Sepsis 01/17/2021 01/21/2021 Hyponatremia 01/17/2021 01/21/2021 Hyperkalemia 01/17/2021 01/21/2021 Hydronephrosis due to obstruction of ureter 01/17/2021 01/21/2021 documented as of this encounter (statuses as of 06/23/2023) [facility] History of Past illness Narrative* Problem Noted Date Diagnosed Date Resolved Date Acute cystitis without hematuria 01/18/2021 01/21/2021 Pyelonephritis 01/17/2021 01/21/2021 Sepsis 01/17/2021 01/21/2021 Hyponatremia 01/17/2021 01/21/2021 Hyperkalemia 01/17/2021 01/21/2021 Hydronephrosis due to obstruction of ureter 01/17/2021 01/21/2021 documented as of this encounter (statuses as of 07/05/2023) [facility]21 NoteHNO ID: [id number] Author: Inna Hansen DO Service: Hospital Medicine Author Type: Physician Type: Progress Notes Filed: 01/18/2021 4:10 PM Note Text: DEPARTMENT OF HOSPITAL MEDICINE PROGRESS NOTE SERVICE DATE: 01/18/2021 SERVICE TIME: 8:57 AM Hospital Medicine/Primary Attending: Inna Hansen DO NIGHT AND WEEKEND COVERAGE: DELMY COVERAGE: Days: [phone], please contact via [employer] Nights: [phone], please page CC Hospitalist Night coverage pager [phone] Subjective INTERVAL HPI: no overnight events. Denies [...] Most recent imaging Assessment/Plan Problem List Sepsis ([facility]) POA: Yes Pyelonephritis POA: Yes Hydronephrosis due to obstruction of ureter POA: Yes Acute cystitis without hematuria POA: Unknown Acute bilateral obstructive uropathy POA: Yes Hyponatremia POA: Yes ANATOLIY (acute kidney injury) ([facility]) POA: Yes Hyperkalemia POA: Yes Principal Problem: Sepsis ([facility]) Pyelonephritis Complicated UTI Hydronephrosis due to [...] VTE Prophylaxis/Anticoagulants 01/17/21 2215 pneumatic compression stockings ([place] 01/17/21 221 activity - [place] VTE Prophylaxis: VTE prophylaxis appropriate Disposition: Home SIGNATURE: Inna Hansen DO PATIENT NAME: Aislinn Wheeler DATE: January 18, 2021 TIME: 8:57 [facility] [id number] NoteHNO ID: [id number] Author: Taurus Ballard MD Service: Urology Author [...] cause of her urinary retention. Taurus Ballard, [facility] CenterOaeddrnz81-90-1642 NoteHNO ID: [id number] Author: RT Dayanara(R) Service: Radiology Author Type: Food And Beverage Outlets Manager Type: Progress Notes Filed: 01/17/2021 8:04 [...] RT Dayanara(R) January 17, 2021 8:03 [facility] [id number] NoteHNO ID: [id number] Author: RT Dayanara(Abel) Service: Radiology Author Type: Food And Beverage Outlets Manager Type: Progress Notes Filed: 01/17/2021 5:30 [...] Antoinette Dailey RT(R) January 17, 2021 5:30 [facility] [id number] NoteHNO ID: [id number] Author: Guy Rogers RT(R) Service: Radiology Author Type: Food And Beverage Outlets Manager Type: Progress Notes Filed: 01/17/2021 4:23 [...] Lila KNOX (R) January 17, 2021 4:22 [facility] [id number] NoteHNO ID: [id number] Author: Wendy Rainey, AHSAN Service: ? Author Type: Clinical Food And Beverage Outlets Manager Type: Progress Notes Filed: 01/17/2021 4:19 [...] Date:12/13/2022 03:00:00 PM Scheduled Provider:HEIDY ARNOLD PA-C Location:[facility] Appointment Type:URO Office Visit [facility] evaluation + Plan note Future Appointments Appointment Date:10/26/2022 10:00:00 AM Scheduled Provider:Lisa Porras MD Location:[facility] Appointment Type:URO Office Visit Appointment Date:12/13/2022 03:00:00 PM Scheduled Provider:HEIDY ARNOLD PA-C Location:[facility] Appointment Type:URO Office Visit [facility] evaluation + Plan note Future Appointments Appointment Date:05/03/2023 10:00:00 AM Scheduled Provider:Lisa Porras MD Location:[facility] Appointment Type:URO Office Visit [facility] evaluation + Plan note Future Appointments Appointment Date:05/03/2023 10:00:00 AM Scheduled Provider:Lisa Porras MD Location:[facility] Appointment Type:URO Office Visit Diagnostic Tests Pending * [facility] Appointment Date:05/15/2023 12:30:00 PM Scheduled Provider: Location:[facility] Appointment Type:Urology CALL PAT FT Appointment Date:05/22/2023 10:30:00 AM Scheduled Provider: Location:[facility] Appointment Type:Urology FT Diagnostic Tests Pending * [facility] Appointment Date:06/28/2023 10:45:00 AM Scheduled Provider:Lisa Porras MD Location:[facility] Appointment Date:06/28/2023 10:45:00 AM Scheduled Provider:Lisa Porras MD Location:[facility] Appointment Type:URO Office Visit Diagnostic Tests Pending * [facility]ments Appointment Date:07/18/2023 11:20:00 AM Scheduled Provider:HEIDY ARNOLD PA-C Location:[facility] Appointment Type:URO Office Visit [facility] evaluation + Plan note Future Appointments Appointment Date:10/10/2023 11:40:00 AM Scheduled Provider:HEIDY ARNOLD PA-C Location:[facility] Appointment Type:URO Office Visit [facility] evaluation noteNo [facility] navabi Other Evaluverrr note* Diagnosis Kidney cyst, acquired- Primary Acquired cyst of kidney [facility] Diagnosis Reflex sympathetic dystrophy of right upper extremity [facility] assessment information [facility] Work Phone: Evaluation note* Diagnosis Reflex sympathetic dystrophy of right upper extremity Complex regional pain syndrome type 1 of right upper extremity documented [facility]* Diagnosis Reflex sympathetic dystrophy of right upper extremity Complex regional pain syndrome type 1 of right upper extremity documented [facility]* Diagnosis Other hydronephrosis- Primary Screening for genitourinary condition Screening for other and unspecified genitourinary condition documented [facility] this [facility]* Diagnosis Retention of urine- Primary Retention of urine, unspecified Screening for genitourinary condition Screening for other and unspecified genitourinary condition Type 2 diabetes mellitus with hyperglycemia, with long-term current use of insulin ([facility]) BURKE (stress urinary incontinence, female) Female stress incontinence [facility] Diagnosis Lung nodule- Primary Solitary pulmonary nodule documented [facility]* Diagnosis Stress incontinence- Primary Female stress incontinence Dysfunctional voiding of urine Unspecified disorder of urethra and urinary tract documented [facility] this [facility]* Diagnosis Preop examination- Primary [...] hyperglycemia, with long-term current use of insulin ([facility]) Neurogenic bladder- Primary Neurogenic bladder, NOS BURKE (stress urinary incontinence, female) Female stress incontinence documented [facility]* Diagnosis Preop examination- Primary [...] (HCC) Other hydronephrosis documented [facility]* Diagnosis Preop examination- Primary [...] Low bladder compliance [facility] Diagnosis Preop examination- Primary Preoperative examination, [...] hyperglycemia, with long-term current use of insulin ([facility]) Screening for genitourinary condition Screening for other and unspecified genitourinary condition documented [facility]* Diagnosis Onset Date Resolution Status Anemia of renal disease acut e B12 deficiency acute CKD stage 3b, GFR 30-44 ml/min acute 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 acute Hyperkalemia acute Hyperparathyroidism acute Hypertensive nephropathy acu te Renal cyst acute [facility] Work Phone: Evaluation note* Diagnosis Encounter for subsequent annual wellness visit (AWV) in Medicare patient- Primary Age related osteoporosis, unspecified pathological fracture presence ([facility]) Stage 3 chronic kidney disease, unspecified whether stage 3a or 3b CKD (HCC) ([facility]) Primary hypertension ([facility]) Unspecified essential hypertension Type 2 diabetes mellitus with hyperglycemia, with long-term current use of insulin ([facility]) Vitamin D deficiency Type 2 diabetes mellitus with diabetic neuropathy, unspecified whether flow nurse insulin use ([facility]) Type 2 diabetes mellitus with foot ulcer, with long-term current use of insulin ([facility]) Stage 3a chronic kidney disease (HCC) ([facility]) Neurogenic bladder Neurogenic bladder, NOS Visual impairment Unspecified visual loss Herpes simplex vulvovaginitis- Primary Primary hypertension ([facility])- Primary Unspecified essential hypertension Type 2 diabetes mellitus with hyperglycemia, with long-term current use of insulin ([facility]) Stage 3 chronic kidney disease, unspecified whether stage 3a or 3b CKD (HCC) ([facility]) Stage 3a chronic kidney disease (HCC) ([facility]) Urinary incontinence without sensory awareness Incontinence without sensory awareness Continuous leakage of urine Continuous leakage Primary hypertension ([facility])- Primary Unspecified essential hypertension Acute cystitis without hematuria Type 2 diabetes mellitus with diabetic neuropathy, unspecified whether flow nurse insulin use ([facility]) UTI symptoms Stage 3a chronic kidney disease (HCC) ([facility]) Neurogenic bladder Neurogenic bladder, NOS Type 2 diabetes mellitus with hyperglycemia, with long-term current use of insulin ([facility]) Essential (primary) hypertension ([facility]) Unspecified essential hypertension Chronic cough- Primary Cough Type 2 diabetes mellitus with diabetic chronic kidney disease ([facility]) Chronic kidney disease, stage 3b (HCC) ([facility]) Hyperparathyroidism, unspecified ([facility]) Hyperparathyroidism, unspecified Rheumatoid arthritis, unspecified ([facility]) Malignant neoplasm of cervix uteri, unspecified ([facility]) Type 2 diabetes mellitus with hyperglycemia, with long-term current use of insulin ([facility]) Type 2 diabetes mellitus with hyperglycemia, with long-term current use of insulin ([facility])- Primary Type 2 diabetes mellitus with diabetic chronic kidney disease ([facility]) Chronic kidney disease, stage 3b (HCC) ([facility]) Hyperparathyroidism, unspecified ([facility]) Hyperparathyroidism, unspecified Malignant neoplasm of cervix uteri, unspecified ([facility]) Rheumatoid arthritis, unspecified ([facility]) Essential (primary) hypertension ([facility]) Unspecified essential hypertension 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 Iron deficiency anemia, unspecified iron deficiency anemia type Primary hypertension ([facility]) Unspecified essential hypertension Type 2 diabetes mellitus with diabetic neuropathy, unspecified whether flow nurse insulin use ([facility]) RSD (reflex sympathetic dystrophy) Unspecified reflex sympathetic dystrophy Continuous leakage of urine Continuous leakage 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, left, sequela ([facility]) Skin lesion of face Unspecified disorder of skin and subcutaneous tissue documented in this encounter [facility] HealthcareEvaluation note* Diagnosis Reflex sympathetic dystrophy of right upper extremity Complex regional pain syndrome type 1 of right upper extremity [facility] this [facility] Diagnosis Complex regional pain syndrome type 1 of right upper extremity- Primary Encounter for long-term opiate analgesic use Encounter for long-term (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 of other medications documented in this encounter [facility] SystemEvaluation note* Diagnosis Chronic cough- Primary Cough Type 2 diabetes mellitus with diabetic chronic kidney disease (HCC) ([facility]) Chronic kidney disease, stage 3b (HCC) ([facility]) Hyperparathyroidism, unspecified (CMS/HCC) Hyperparathyroidism, unspecified Rheumatoid arthritis, unspecified (CMS/HCC) Malignant neoplasm of cervix uteri, unspecified (CMS/HCC) Type 2 diabetes mellitus with hyperglycemia, with long-term current use of insulin ([facility]) documented in this encounter [facility] HealthcareEvaluation note* Diagnosis Chronic cough- Primary Cough documented in this encounter [facility] HealthcareEvaluation note* Diagnosis Nausea and vomiting, [...] SURGERY Hospitalization History DKA 2014 Hospitalization History [facility] 05/2022 [facility] Other Hisbokr general Narrative - Reported* Type Description Date [...] SURGERY Hospitalization History DKA 2014 Hospitalization History [facility] 05/2022 [facility] Other Hospital course Narrative No data available [...] [facility] reason for referral (narrative)* Diagnostic Procedure Only (Routine) - Pending Review Specialty Diagnoses / Procedures Referred By Danny hensley Referred To Contact US IMAGING Diagnoses Kidney cyst, acquired Procedures US KIDNEY/BLADDER US RETROPERITONEAL REAL TIME W/IMAGE COMPLETE Taurus Ballard MD [address] [place] [address] Us [facility] [place] [address] Referral ID Status Reason Start Date Expiration Date Visits Requested Visits Authorized [id number] Pending Review Auto-Generat ed Referral 10/05/2023 08/03/2024 1 1 [facility] for referral (narrative)* Outpatient Procedure (Routine) - New Request Specialty Diagnoses / Procedures Referred By Danny hensley Referred To Contact [facility] Diagnoses Retention of urine BURKE (stress urinary incontinence, female) Procedures FLUROURODYNAMICS WITH EMG EMG STDS ANAL/URTL SPHNCTR OTH/THN NDL Carmenza Nolen MD [id number] [place] [address] Referral ID Status Reason Start Date Expiration Date Visits Requested Visits Authorized [id number] New Request Auto-Generat ed Referral 03/26/2024 03/26/2025 1 1 [facility] for referral (narrative)* Consultation (Routine) - Pending Review Specialty Diagnoses / Procedures Referred By Danny hensley Referred To Contact Nephrology Diagnoses Hyperparathyroidism, unspecified ([facility]/HCC) Stage 3a chronic kidney disease (HCC) ([facility]/HCC) Procedures ME OFFICE/OUTPATIENT NEW HIGH MDM 60 MINUTES Agusto Olmstead NP [address] [place] [address] Tyler Valencia MD [address] [address] Referral ID Status Reason Start Date Expiration Date Visits Requested Visits Authorized [id number] Pending Review Specialty Services Required 04/16/2024 10/13/2024 1 1 Scheduling Instructions Was already seen in practice, needs to re establish [facility] for visit NarrativeReferral Agusto Olmstead, Mark Anthony pt Type 2 IDDM apt with [employer] DICE SPOTTER, CONFERENCE ORGANIZER-C, BC-ADMNort navabi Other Summary Purpose Family History Relationship Condition [...] Documents on File Type Date Recorded 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 Advance Directive(s) 01/17/2021 3:49 PM Advance Directive Response Recorded Date/ Time Advance Directives No April 09, 2024 11:42am Reason for Referral Specialty Diagnoses / Procedures Referred By Danny hensley Referred To Contact CT IMAGING Diagnoses Other hydronephrosis Procedures CT UROGRAM WO/W IVCON CT ABD & PELVIS W/WO CONTRST 1+ BODY REGNS Taurus Ballard MD [address] [place] [address] [place] [address] Referral ID Status Reason Start Date Expiration Date Visits Requested Visits Authorized [id number] Pending Review Auto-Generat ed Referral 01/19/2024 02/10/2025 [...] section and content) DATE CREATED AUTHOR 01/23/2021 [facility] DATE CREATED AUTHOR AUTHOR'S ORGANIZ ATION 01/04/2023 [facility] DATE CREATED AUTHOR AUTHOR'S ORGANIZ ATION 10/19/2023 [facility] DATE CREATED AUTHOR AUTHOR'S ORGANIZ ATION 11/03/2023 [facility] DATE CREATED AUTHOR AUTHOR'S ORGANIZ ATION 03/05/2024 [facility] DATE CREATED AUTHOR AUTHOR'S ORGANIZ ATION 04/02/2024 [facility] DATE CREATED AUTHOR AUTHOR'S ORGANIZ ATION 04/29/2024 [facility] DATE CREATED AUTHOR AUTHOR'S ORGANIZ ATION 06/13/2024 [facility] DATE CREATED AUTHOR AUTHOR'S ORGANIZ ATION 06/28/2024 [facility] DATE CREATED AUTHOR AUTHOR'S ORGANIZ ATION 07/05/2024 [facility] DATE CREATED AUTHOR AUTHOR'S ORGANIZ ATION 07/08/2024 [facility] Source Comments (unrecognize d section and content) In the event this informatio n is protected by the Federal Confidentiality of Alcohol and Drug Abuse Patient Records regulations: The Federal rules restrict any use of the information to criminally investigate or prosecute any alcohol or drug abuse patient.[facility] the event this information is protected by the Federal Confidentiality of Alcohol and Drug Abuse Patient Records regulations: The Federal rules restrict any use of the information to criminally investigate or prosecute any alcohol or drug abuse patient.[facility] the event this information is protected by the Federal Confidentiality of Alcohol and Drug Abuse Patient Records regulations: The Federal rules restrict any use of the information to criminally investigate or prosecute any alcohol or drug abuse patient.[facility] the event this information is protected by the Federal Confidentiality of Alcohol and Drug Abuse Patient Records regulations: The Federal rules restrict any use of the information to criminally investigate or prosecute any alcohol or drug abuse patient.[facility] the event this information is protected by the Federal Confidentiality of Alcohol and Drug Abuse Patient Records regulations: The Federal rules restrict any use of the information to criminally investigate or prosecute any alcohol or drug abuse patient.[facility] the event this information is protected by the Federal Confidentiality of Alcohol and Drug Abuse Patient Records regulations: The Federal rules restrict any use of the information to criminally investigate or prosecute any alcohol or drug abuse patient.[facility] the event this information is protected by the Federal Confidentiality of Alcohol and Drug Abuse Patient Records regulations: The Federal rules restrict any use of the information to criminally investigate or prosecute any alcohol or drug abuse patient.[facility] the event this information is protected by the Federal Confidentiality of Alcohol and Drug Abuse Patient Records regulations: The Federal rules restrict any use of the information to criminally investigate or prosecute any alcohol or drug abuse patient.[facility] the event this information is protected by the Federal Confidentiality of Alcohol and Drug Abuse Patient Records regulations: The Federal rules restrict any use of the information to criminally investigate or prosecute any alcohol or drug abuse patient.[facility] the event this information is protected by the Federal Confidentiality of Alcohol and Drug Abuse Patient Records regulations: The Federal rules restrict any use of the information to criminally investigate or prosecute any alcohol or drug abuse patient.[facility] the event this information is protected by the Federal Confidentiality of Alcohol and Drug Abuse Patient Records regulations: The Federal rules restrict any use of the information to criminally investigate or prosecute any alcohol or drug abuse patient.[facility] the event this information is protected by the Federal Confidentiality of Alcohol and Drug Abuse Patient Records regulations: The Federal rules restrict any use of the information to criminally investigate or prosecute any alcohol or drug abuse patient.[facility] the event this information is protected by the Federal Confidentiality of Alcohol and Drug Abuse Patient Records regulations: The Federal rules restrict any use of the information to criminally investigate or prosecute any alcohol or drug abuse patient.[facility] the event this information is protected by the Federal Confidentiality of Alcohol and Drug Abuse Patient Records regulations: The Federal rules restrict any use of the information to criminally investigate or prosecute any alcohol or drug abuse patient.[facility] the event this information is protected by the Federal Confidentiality of Alcohol and Drug Abuse Patient Records regulations: The Federal rules restrict any use of the information to criminally investigate or prosecute any alcohol or drug abuse patient.[facility] the event this information is protected by the Federal Confidentiality of Alcohol and Drug Abuse Patient Records regulations: The Federal rules restrict any use of the information to criminally investigate or prosecute any alcohol or drug abuse patient.[facility] the event this information is protected by the Federal Confidentiality of Alcohol and Drug Abuse Patient Records regulations: The Federal rules restrict any use of the information to criminally investigate or prosecute any alcohol or drug abuse patient.[facility]In the event this information is protected by the Federal Confidentiality of Alcohol and Drug Abuse Patient Records regulations: The Federal rules restrict any use of the information to criminally investigate or prosecute any alcohol or drug abuse patient.[facility]stownIn the event this information is protected by the Federal Confidentiality of Alcohol and Drug Abuse Patient Records regulations: The Federal rules restrict any use of the information to criminally investigate or prosecute any alcohol or drug abuse patient.[facility]In the event this information is protected by the Federal Confidentiality of Alcohol and Drug Abuse Patient Records regulations: The Federal rules restrict any use of the information to criminally investigate or prosecute any alcohol or drug abuse patient.[facility]stownIn the event this information is protected by the Federal Confidentiality of Alcohol and Drug Abuse Patient Records regulations: The Federal rules restrict any use of the information to criminally investigate or prosecute any alcohol or drug abuse patient.[facility]stownIn the event this information is protected by the Federal Confidentiality of Alcohol and Drug Abuse Patient Records regulations: The Federal rules restrict any use of the information to criminally investigate or prosecute any alcohol or drug abuse patient.[facility] Reason for Visit (unrecogniz ed section and [...] c/o UNCONTROLLED leakage - STOP ICS X2 [id number] Reason Comments Radiology CT Specialty Diagnoses / Procedures Referred By Contac t Referred To Contact CT IMAGING Diagnoses Other hydronephrosis Procedures CT UROGRAM WO/W IVCON CT ABD & PELVIS W/WO CONTRST 1+ BODY REGNS Taurus Ballard MD [address] [place] [address] [place] [address] Referral ID Status Reason Start Date Expiration Date V isits Requested Visits Authorized [id number] Closed Auto-Generate d Referral 01/19/2024 02/10/2025 1 1 Reason Comments Consult Reason Onset Date Comments Med Refill 06/11/2024 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 Comments 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 Reason Comments Arm Injury Reason Onset Date Comments Med Refill 07/15/2024 Patient Care team informatio n (unrecognized section and content) Team Status: Active Member Role Status Dates Sumi Lentz APRN ASSISTANT PROFESSOR OF CRIMINAL JUSTICE-C Primary Care Provider Active Team Status: Active Member Role Status Dates Sumi Lentz APRN ASSISTANT PROFESSOR OF CRIMINAL JUSTICE-C Primary Care Provider Active Start: April 26, 2024 End: April 27, 2024 Rafi Marcelo DO Attending Provider Active Sta rt: April 26, 2024 End: April 27, 2024 Shaikh Leon MD Active Start: 2023 End: April 27, 2024 Team Status: Active Member Role Status Dates Sumi Lentz APRN ASSISTANT PROFESSOR OF CRIMINAL JUSTICE-C Primary Care Provider Active Start: May 10, 2024 Rafi Marcelo DO Attending Provider Active Sta rt: May 10, 2024 Team Status: Inactive Member Role Status Dates Sumi Letnz APRN ASSISTANT PROFESSOR OF CRIMINAL JUSTICE-C Primary Care Provider Active Start: June 05, 2024 End: June 05, 2024 Eli Sprague MD Attending Provider Active Star t: June 05, 2024 End: June 05, 2024 Color Artist Relationship Specialty Start Date End Date JodiAgusto casillas [address] [place] [address] PCP - General 05/17/23 Lisa Porras MD [address] [place] [address] Referring Urology 05/11/23 Color Artist Relationship Specialty Start Date End Date JodiAgusto casillas [address] [place] [address] PCP - General 05/17/23 Lisa Porras MD [address] [place] [address] Referring Urology 05/11/23 Color Artist Relationship Specialty Start Date End Date RicapurvaAgusto casillas [address] [place] [address] PCP - General 05/17/23 Lisa Porras MD [address] [place] [address] Referring Urology 05/11/23 Color Artist Relationship Specialty Start Date End Date Agusto Olmstead [address] [place] [address] PCP - General 05/17/23 Lisa Porras MD [address] [id number] Referring Urology 05/11/23 Color Artist Relationship Specialty Start Date End Date Agusto Olmstead, DICE SPOTTER-BEAD CUTTER [address] [place] [address] PCP - General Nurse Practitioner 11/10/22 Color Artist Relationship Specialty Start Date End Date Agusto Olmstead [address] [place] [address] PCP - General 05/17/23 Lisa Porras MD [address] [place] [address] Referring Urology 05/11/23 Color Artist Relationship Specialty Start Date End Date RicapurvamundoAgusto [address] [place] [address] PCP - General 05/17/23 Lisa Porras MD [address] [place] [address] Referring Urology 05/11/23 Team Status: Inactive Member Role Status Dates Eli Sprague MD Attending Provider Active Star t: August 01, 2023 End: August 01, 2023 Color Artist Relationship Specialty Start Date End Date RicapurvaanilaAgusto harrisASH[facility] [address] [place] [address] PCP - General Nurse Practitioner 11/10/22 Color Artist Relationship Specialty Start Date End Date Agusto Olmstead DICE SPOTTER-[facility] [address] [place] [address] PCP - General Nurse Practitioner 11/10/22 Color Artist Relationship Specialty Start Date End Date Agusto Olmstead [address] [place] [address] PCP - General 05/17/23 Lisa Porras MD [address] [place] [address] Referring Urology 05/11/23 Agusto Olmstead [address] [place] [address] Referring 01/04/24 Color Artist Relationship Specialty Start Date End Date Agusto Olmstead [address] [place] [address] PCP - General 05/17/23 Lisa Porras MD [address] [place] [address] Referring Urology 05/11/23 Agusto Olmstead [address] [place] [address] Referring 01/04/24 Color Artist Relationship Specialty Start Date End Date Agusto Olmstead [address] [place] [address] PCP - General 05/17/23 Lisa Porras MD [address] [place] [address] Referring Urology 05/11/23 Agusto Olmstead [address] [place] [address] Referring 01/04/24 Color Artist Relationship Specialty Start Date End Date Agusto Olmstead [address] [place] [address] PCP - General 05/17/23 Lisa Porras MD [address] [place] [address] Referring Urology 05/11/23 Agusto Olmstead [address] [place] [address] Referring 01/04/24 Color Artist Relationship Specialty Start Date End Date Agusto Olmstead [address] [place] [address] PCP - General 05/17/23 Lisa Porras MD [address] [place] [address] Referring Urology 05/11/23 Agusto Olmstead [address] [place] [address] Referring 01/04/24 Color Artist Relationship Specialty Start Date End Date Agusto Olmstead [address] [place] [address] PCP - General 05/17/23 Lisa Porras MD [address] [place] [address] Referring Urology 05/11/[address] [place] [address] Referring 01/04/24 Color Artist Relationship Specialty Start Date End Date Agusto Olmstead [address] [place] [address] PCP - General 05/17/23 Lisa Porras MD [address] [place] [address] Referring Urology 05/11/[address] [place] [address] Referring 01/04/24 Color Artist Relationship Specialty Start Date End Date Agusto Olmstead [address] [place] [address] PCP - General 05/17/23 Lisa Porras MD [address] [place] [address] Referring Urology 05/11/[address] [place] [address] Referring 01/04/24 Color Artist Relationship Specialty Start Date End Date Agusto Olmstead [address] [place] [address] PCP - General 05/17/23 Lisa Porras MD [address] [place] [address] Referring Urology 05/11/23 Agusto Olmstead [address] [place] [address] Referring 01/04/24 Color Artist Relationship Specialty Start Date End Date Agusto Olmstead [address] [place] [address] PCP - General 05/17/23 Lisa Porras MD [address] [place] [address] Referring Urology 05/11/23 Agusto Olmstead [address] [place] [address] Referring 01/04/24 Color Artist Relationship Specialty Start Date End Date Kofi Gotti MD [address] [place] [address] PCP - General Family Medicine 10/09/23 Color Artist Relationship Specialty Start Date End Date Kofi Gotti MD [address] [place] [address] PCP - General Family Medicine 10/09/23 Color Artist Relationship Specialty Start Date End Date Agusto Olmstead DICE SPOTTER-BEAD CUTTER PCP - General Nurse Practitioner 11/10/22 Color Artist Relationship Specialty Start Date End Date Agusto Olmstead [address] [place] [address] PCP - General 05/17/23 Lisa Porras MD [address] [place] [address] Referring Urology 05/11/23 Agusto Olmstead [address] [place] [address] Referring 01/04/24 Color Artist Relationship Specialty Start Date End Date Agusto Olmstead DICE SPOTTER-BEAD CUTTER PCP - General Nurse Practitioner 11/10/22 Color Artist Relationship Specialty Start Date End Date Kofi Gotti MD [address] [place] [address] PCP - General Family Medicine 10/09/23 Color Artist Relationship Specialty Start Date End Date Kofi Gotti MD [address] [place] [address] PCP - General Family Medicine 10/09/23 Color Artist Relationship Specialty Start Date End Date Kofi Gotti MD [address] [place] [address] PCP - [facility] Family Medicine 10/09/23 Color Artist Relationship Specialty Start Date End Date Kofi Gotti MD [address] [place] [address] PCP - [facility] Medicine 10/09/23 Color Artist Relationship Specialty Start Date End Date Kofi Gotti MD [address] [place] [address] PCP - General [facility] Medicine 10/09/23 Color Artist Relationship Specialty Start Date End Date Kofi Gotti MD [address] [place] [address] PCP - [facility] Medicine 10/09/23 Color Artist Relationship Specialty Start Date End Date Kofi Gotti MD [address] [place] [address] PCP - General Family Medicine 06/20/24 Agusto Olmstead NP [address] [place] [address] Nurse Practitioner Family Medicine 06/11/24 Goals (unrecognized [...] BE BASED ON THE PRIMARY CLINICAL RECORDS. [facility] [employer] [facility]. provides no warranty or guarantee of the accuracy or completeness of information in this document.
[2024-08-10 16:48] LABS: Glucometer 203 mg/dL (74-106)
[2024-08-10] MEDS: METOPROLOL SUCCINATE 50 MG TAB.ER.24H PO (16:58)
[2024-08-10] MEDS: LACTATED RINGER'S SOLUTION 1,000 ML 125 ML IV (16:58)
[2024-08-10 17:16] LABS: Anion Gap 14.4; BUN Creatinine Ratio 16.4; Calcium 9.4 mg/dL (8.5-10.1); Carbon Dioxide 25.2 mmol/L (21.0-32.0); Chloride 103 mmol/L (98-107); Estimated GFR (African America 26 (>=60 mL/min/1.73m^2); Estimated GFR (Non-African Ame 22 (>=60 mL/min/1.73m^2); Glucose 209 mg/dL (74-106); Potassium 4.6 mmol/L (3.5-5.1); Sodium 138 mmol/L (136-145); Troponin I High Sensitivity 13.2 pg/mL (4.0-51.3)
[2024-08-10] MEDS: HYDROCODONE/ACET 5-325 MG TABLET 1 TAB PO (19:13)
[2024-08-10] MEDS: INSULIN GLARGINE 300 UNIT/3 ML INSULN.PEN 20 UNIT SQ (21:07)
[2024-08-10] MEDS: PREGABALIN 100 MG CAPSULE PO (21:08)
[2024-08-10] MEDS: HEPARIN SODIUM (PORCINE) 5,000 UNIT/ML VIAL 5000 UNIT SUBQ (21:08)
[2024-08-10 21:09] LABS: Glucometer 275 mg/dL (74-106)
[2024-08-10] MEDS: INSULIN ASPART 300 UNIT/3 ML PEN SUBQ (21:09)
[2024-08-10 21:25] LABS: Troponin I High Sensitivity 13.3 pg/mL (4.0-51.3)
[2024-08-11] VITALS (36 sets, daily range): BP systolic 116–184; BP diastolic 57–97; PULSE 67–82; TEMP 36.6; O2SAT 99
[2024-08-11] MEDS: LACTATED RINGER'S SOLUTION 1,000 ML 125 ML IV (01:10)
[2024-08-11] MEDS: HYDRALAZINE HCL 20 MG/ML VIAL 10 MG IVP (03:02)
[2024-08-11] MEDS: HEPARIN SODIUM (PORCINE) 5,000 UNIT/ML VIAL 5000 UNIT SUBQ (05:59)
[2024-08-11] MEDS: PREGABALIN 100 MG CAPSULE PO (06:00)
[2024-08-11 06:34] LABS: Basophils Absolute Auto 0.1 10^3/uL (0.0-0.1); Basophils Percent Auto 0.6 % (0.2-2.0); Eosinophils Absolute Auto 0.3 10^3/uL (0.0-0.7); Eosinophils Percent Auto 3.7 % (0.9-7.0); Hematocrit 32.6 % (36.0-48.0); Hemoglobin 10.4 g/dL (12.0-16.0); Immature Granulocytes Abs Auto 0.03 10^3/uL (0.00-0.03); Immature Granulocytes Pct Auto 0.4 % (0.0-0.5); Lymphocytes Absolute Auto 3.4 10^3/uL (1.2-3.8); Lymphocytes Percent Auto 43.7 % (20.5-60.0); Mean Corpuscular HGB Conc 31.9 g/dL (29.9-35.2); Mean Corpuscular Hemoglobin 26.1 pg (26.7-34.0); Mean Corpuscular Volume 81.7 fL (81.0-99.0); Monocytes Absolute Auto 0.6 10^3/uL (0.3-0.8); Monocytes Percent Auto 7.1 % (1.7-12.0); Neutrophils Absolute Auto 3.5 10^3/uL (1.4-6.5); Neutrophils Percent Auto 44.5 % (43.0-75.0); Platelet Count 272 10^3/uL (150-450); Red Blood Count 3.99 10^6/uL (4.20-5.40); Red Cell Distribution Width 13.6 % (11.0-15.0); White Blood Count 7.9 10^3/uL (4.0-11.0)
[2024-08-11 06:58] LABS: Alanine Aminotransferase 15 U/L (14-59); Albumin Globulin Ratio 0.5; Albumin Level 2.3 g/dL (3.4-5.0); Alkaline Phosphatase 76 U/L (46-116); Anion Gap 14.6; Aspartate Amino Transferase 16 U/L (15-37); BUN Creatinine Ratio 15.9; Bilirubin Total 0.2 mg/dL (0.2-1.0); Calcium 8.6 mg/dL (8.5-10.1); Carbon Dioxide 24.2 mmol/L (21.0-32.0); Chloride 107 mmol/L (98-107); Estimated GFR (African America 26 (>=60 mL/min/1.73m^2); Estimated GFR (Non-African Ame 22 (>=60 mL/min/1.73m^2); Globulin 4.7 g/dL; Glucose 69 mg/dL (74-106); Potassium 4.8 mmol/L (3.5-5.1); Sodium 141 mmol/L (136-145)
[2024-08-11] MEDS: METOPROLOL SUCCINATE 50 MG TAB.ER.24H PO (09:46)
[2024-08-11] MEDS: FERROUS SULFATE 325 MG TABLET PO (09:46)
--- NOTE | 2024-08-11 10:33 | P.HP_ITS ---
HPI H&P: HPI History of Present Illness Chief complaint: Hyperkalemia Hypertensive Emergency Narrative: HPI and Hospital Course: 64 y o female with hx of CKD 4, came to ED after she was told that her routine labs were abnormal and she needed to be seen in ED. Patient was found to have h yperkalemia, mild ANATOLIY on labs. She also had uncontrolled HTN upon arrival and her BP was as high as 180/100 along with intermittent sub sternal chest discomfort. Patient admitted to not using her anti hypertensives. She was given IV hydralazine and started on IV cardene but did not require continuous infusion as her BP improved quickly once she was given her oral amlodipine. She reported that for past one month or so, she has been experiencing dull chest pain that is worse on exertions, lasts for less than a minute. She has no known hx of CAD. Patient was admitted as inpatient as she not only had ANATOLIY/Hyperkalemia but also presented with Hypertensive emergency. She received lokelma, and insulin for hyperkalemia. Her repeat BMP showed resolution of hyperkalemia. Patient's renal function also improved overnight. For her HTN, she required IV hydralazine twice overnight but overall, her BP has been better and more or less at goal. She no longer complaints of chest pain. Her Troponin x 3 is negative and there were no acute ischemic changes on EKG. Given her presentation, we anticipated that patient will require inpatient treatment/monitoring for minimum of 2 days but she recovered sooner than anticipated and is medically stable for discharge. Patient was counseled on importance of compliance. She was educated on CAD/symptoms concerning for CAD and that if she develops persistent CP, she should return to ED for evaluation. She was also instructed to f/u with PCP and was recommended to discuss outpatient work up for underlying CAD and Cardiology f/u. Opioid HPI Opioid Management Most Recent Pain and Opioid Data: Last Pain Scale 2 08/10/24 20:00 08/10/24 Last Pain Assessment 08/11/24 09:56 Last ORT Total Score 0 08/10/24 16:31 08/10/24 Last ORT Risk Category Low Risk 08/10/24 16:31 08/10/24 Review of Systems ROS Status of ROS 10 or more systems reviewed and unremark able except as noted in history and below [facility] Medical History (Updated 08/11/24 @ 10:49 by Shaikh Leon MD) H/O stroke without residual deficits ?Z86.73 - Personal history of transient ischemic attack (TIA), and cerebral infarction without residual deficits (ICD-10) CKD (chronic kidney disease) stage 4, GFR 15-29 ml/min ?N18.4 - Chronic kidney disease, stage 4 (severe) (ICD-10) Pneumonia ?J18.9 - Pneumonia, unspecified organism (ICD-10) Acute UTI (urinary tract infection) ?N39.0 - Urinary tract infection, site not specified (ICD-10) Bilateral hydronephrosis ?N13.30 - Unspecified hydronephrosis (ICD-10) Amputation of left great toe ?S98.112A - Complete traumatic amputation of left great toe, initial encounter (ICD-10) 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 ?N18.9 - Chronic kidney disease, unspecified (ICD-10) ?Z85.528 - Personal history of other malignant neoplasm of kidney (ICD-10) Neuropathy ?G62.9 - Polyneuropathy, unspecified (ICD-10) DM2 (diabetes mellitus, type 2) ?E11.9 - Type 2 diabetes mellitus without complications (ICD-10) Chronic renal insufficiency ?N18.9 - Chronic kidney disease, unspecified (ICD-10) Hyperglycemia due to diabetes mellitus ?E11.65 - Type 2 diabetes mellitus with hyperglycemia (ICD-10) Urinary tract infection ?N39.0 - Urinary tract infection, site not specified (ICD-10) HTN (hypertension) ?I10 - Essential (primary) hypertension (ICD-10) Stroke ?I63.9 - Cerebral infarction, unspecified (ICD-10) Lupus ?M32.9 - Systemic lupus erythematosus, unspecified (ICD-10) Arthritis ?M19.90 - Unspecified osteoarthritis, unspecified site (ICD-10) Fibromyalgia ?M79.7 - Fibromyalgia (ICD-10) Diabetes ?E11.9 - Type 2 diabetes mellitus without complications (ICD-10) Chronic kidney disease (CKD) ?N18.9 - Chronic kidney disease, unspecified (ICD-10) Neoplasm of kidney ?D49.519 - Neoplasm of unspecified behavior of unspecified kidney (ICD-10) Surgical History (Updated 01/10/24 @ 15:56 by Ashley Sanchez) Hx of neck surgery ?Z98.890 - Other specified postprocedural states (ICD-10) History of shoulder surgery ?Z98.890 - Other specified postprocedural states (ICD-10) History of hysterectomy ?Z90.710 - Acquired absence of both cervix and uterus (ICD-10) Family History (Updated 01/10/24 @ 15:58 by Ashley Sanchez) Brother Family history of CHF (congestive heart failure) Family history of myocardial infarction Father Family history of CHF (congestive heart failure) Family history of COPD (chronic obstructive pulmonary disease) Family history of myocardial infarction Sister Family history of cancer Grandmother Family history of cancer Family history of diabetes mellitus Social History (Updated 04/26/24 @ 04:43 by Vonnie Tijerina) Within the past year, how often did you have a drink containing alcohol: never Within the past year, how often did you have six or more drinks on one occasion: never Score interpretation: A score less than 3 is consistent with normal alcohol consumption. Smoking status: Never smoker Non-prescribed substance use: denies use Known occupational exposures/hazards: No Highest level of school completed/degree received: high school graduate Do you want help with school or training: No Are you now , , , , never or living with a partner: In a typical week, how many times do you talk on the telephone with family, friends, or neighbors: 3 or more times per week How often do you get together with friends or relatives: 3 or more times per week How often do you attend spiritism or sikh services: never Do you belong to any clubs or organizations such as spiritism groups unions, fraternal or athletic groups, or school groups: no Total score: 1 Score interpretation: A score of less than or equal to 1 indicates the most socially isolated. Little interest or pleasure in doing things: not at all Feeling down, depressed, or hopeless: not at all Feel stressed/tense/nervous/anxious/difficulty sleeping: to some extent Life stressors: other Life stressor details: Personal health Gender Identity: female Meds Home Medications and Allergies Home Medications ?Medication ?Instructions ?Recorded ?Confirmed ?Type insulin lispro 100 unit/mL 1 sliding scale dose subcut QID 05/12/23 08/10/24 History subcutaneous pen pregabalin 150 mg capsule 150 mg PO Q8H 05/12/23 08/10/24 History hydrocodone 7.5 mg-acetaminophen 1 tab PO Q8H PRN pain 07/07/23 08/10/24 History 325 mg tablet ferrous sulfate 325 mg (65 mg 325 mg PO DAILY 01/10/24 08/10/24 History iron) tablet (FeroSul) insulin glargine 100 unit/mL (3 28 unit (0.28 mL) subcut QPM #0 mL 01/11/24 08/10/24 Rx mL) subcutaneous pen (Lantus Solostar U-100 Insulin) B-complex with vitamin C 1 cap PO DAILY 04/26/24 08/10/24 History (Support-500 capsule) fluticasone propionate 50 1 spray intranasal DAILY PRN 04/26/24 08/10/24 History mcg/actuation nasal allergies spray,suspension (24 Hour Allergy Relief) metoprolol succinate 50 mg 50 mg PO .qd 04/26/24 04/26/24 History tablet,extended release 24 hr calcitriol 0.25 mcg capsule 0.25 mcg PO .3XAWEEK 08/10/24 08/10/24 History Allergies Allergy/AdvReac Type Severity Reaction Status Date / Time latex Allergy Unknown Verified 01/04/24 08:42 Exam Constitutional Vital Signs, click to edit/add: Last Vital Signs Temp 98 F 08/11/24 08:00 Pulse 72 08/11/24 09:56 Resp 16 08/11/24 08:00 BP 123/63 08/11/24 08:00 Pulse Ox 99 08/11/24 08:00 O2 Del Method Room Air 08/10/24 20:05 Documenting provider has reviewed patient's vital signs: yes Common normals: no apparent distress and oriented x3 General appearance: cooperative [facility] Common normals: normocephalic and head/scalp atraumatic Head and scalp: normocephalic and atraumatic Eye Common normals: conjunctivae normal and no scleral icterus Conjunctiva: conjunctiva(e) normal Respiratory Common normals: normal respiratory effort and clear to auscultation bilaterally Effort & inspection: able to speak in complete sentences Auscultation: clear to auscultation bilaterally Cardio Common normals: regular rate, S1 normal heart sound and S2 normal heart sound Rate: regular rate Heart sounds: S1 normal and S2 normal GI Common normals: Normal to inspection, nondistended, normoactive bowel sounds present, soft to palpation, non-tender and no hepatosplenomegaly Palpation: soft and no hepatosplenomegaly Extremity Common normals: no clubbing, cyanosis or edema Neuro Common normals: oriented x3, moves all extremities and no focal motor deficits Psych Common normals: mental status grossly normal, denies hallucinations, denies homicidal ideation and denies suicidal ideation Results Labs Labs: Short CBC 08/10/24 08/11/24 Range/Units 12:05 05:32 WBC 7.5 7.9 (4.0-11.0) 10^3/uL Hgb 11.4 L 10.4 L (12.0-16.0) g/dL Hct 35.3 L 32.6 L (36.0-48.0) % Plt Count 294 272 (150-450) 10^3/uL BMP 08/10/24 08/10/24 08/11/24 12:05 16:47 05:32 Sodium 138 138 141 Potassium 6.0 H 4.6 4.8 Chloride 102 103 107 Carbon Dioxide 24.0 25.2 24.2 BUN 40.0 H 37.0 H 36.0 H Creatinine 2.48 H 2.25 H 2.27 H Glucose 210 H 209 H 69 L Calcium 9.3 9.4 8.6 Liver Function 08/10/24 08/11/24 Range/Units 12:05 05:32 Total Bilirubin 0.3 0.2 (0.2-1.0) mg/dL AST 19 16 (15-37) U/L ALT 19 15 (14-59) U/L Alkaline Phosphatase 106 76 (46-116) U/L Albumin 3.3 L 2.3 L (3.4-5.0) g/dL Assessment and Plan Assessment and Plan (1) Hypertensive emergency: Assessment and Plan: Due to non compliance. Improved once oral amlodipine was resumed. Counseled on compliance. F/u PCP and Nephrology as outpatient. (2) Hyperkalemia: Assessment and Plan: Due ANATOLIY on CKD. Resolved. (3) ANATOLIY (acute kidney injury): Assessment and Plan: P/w Cr of 2.79, Baseline Cr is 2.0. Improved with hydration overnight. Outpatient f/u with Nephrology (4) Chest pain: Assessment and Plan: Intermittent, exertional and ongoing for a month. Given her risk factors - HTN, CKD 4, T2 DM, Hx of CVA - high risk of CAD. No acute changes on EKG. Negative tropx3. Suspected underlying CAD - will need outpatient w/u and follow up by Cardiology. Patient educated on signs and symptoms that should prompt her to seek care in ED. Qualifiers: Chest pain type: chest pain due to myocardial ischemia Ischemic chest pain type: stable angina pectoris Qualified Code(s): I20.89 - Other forms of angina pectoris (5) CKD (chronic kidney disease) stage 4, GFR 15-29 ml/min: Assessment and Plan: F/u with Nephrology. Will benefit from addition of SGLT2 inhibitors especially since she has hx of T2 DM (6) DM2 (diabetes mellitus, type 2): Assessment and Plan: Resume basal/bolus insulin. Will benefit from addition of SGLT2 inhibitors Defer to PCP Qualifiers: Diabetes mellitus terminal block assembler insulin use: with terminal block assembler use Diabetes mellitus complication status: with kidney complications Diabetes mellitus complication detail: with chronic kidney disease Chronic kidney disease stage: stage 4 (GFR 15-29) Qualified Code(s): E11.22 - Type 2 diabetes mellitus with diabetic chronic kidney disease; N18.4 - Chronic kidney disease, stage 4 (severe); Z79.4 - retirement (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 (7) Fibromyalgia: Assessment and Plan: On Lyrica. I recommend adjusting the dose given her CKD 4. Defer to PCP (8) H/O stroke without residual deficits: Assessment and Plan: Not on ASA, statin. Plan Stable for discharge. Will start on ASA, Lipitor given hx of T2 DM and prior CVA and suspected CAD. Will also order SL Nitro as needed for CP. If persistent symptoms and no improvement with SL nitro, instructed to come to ED for an evaluation.
--- NOTE | 2024-08-15 11:38 | CM.DCFOLLOWU ---
Phone number has calling restrictions 08/15/24
== END 2024-08-11 11:00 | disposition home or self-care (01) | DRG 641 ==
LOC: ER 15:37 → ICU 16:31
PROVIDERS: Admitting Provider Internal Medicine; Emergency Provider Emergency Medicine; PCP Nurse Practitioner; Visit Provider Internal Medicine
DX: E87.5 Hyperkalemia (principal); I16.1 Hypertensive emergency; N17.9 Acute kidney failure, unspecified; I12.9 Hypertensive chronic kidney disease with stage 1 through stage 4 chronic kidney disease, or unspecified chronic kidney disease; E11.22 Type 2 diabetes mellitus with diabetic chronic kidney disease; N18.4 Chronic kidney disease, stage 4 (severe); E78.2 Mixed hyperlipidemia; I25.118 Atherosclerotic heart disease of native coronary artery with other forms of angina pectoris; M79.7 Fibromyalgia; T46.5X6A Underdosing of other antihypertensive drugs, initial encounter; Z91.128 Patient's intentional underdosing of medication regimen for other reason; Z79.4 Long term (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; Z86.73 Personal history of transient ischemic attack (TIA), and cerebral infarction without residual deficits; Z79.899 Other long term (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; Z91.040 Latex allergy status
CPT/HCPCS: 36415; 71045; 80048; 80053; 80061; 83036; 83735; 83880; 84484; 85025; 85610; 93005; 94761; 96365; 96375; 99285; J0360; J0612; J1644; J1817; J2404

== ENCOUNTER 2024-08-28 11:04 | Outpatient (OUT) | payer MEDICARE, SELFPAY ==
[2024-08-28 11:44] LABS: Hematocrit 30.8 % (36.0-48.0); Hemoglobin 9.8 g/dL (12.0-16.0); Mean Corpuscular HGB Conc 31.8 g/dL (29.9-35.2); Mean Corpuscular Hemoglobin 26.3 pg (26.7-34.0); Mean Corpuscular Volume 82.6 fL (81.0-99.0); Mean Platelet Volume 11.3 fL (9.5-13.5); Platelet Count 152 10^3/uL (150-450); Red Blood Count 3.73 10^6/uL (4.20-5.40); Red Cell Distribution Width 13.6 % (11.0-15.0); White Blood Count 8.5 10^3/uL (4.0-11.0)
[2024-08-28 12:00] LABS: Creatinine Urine Random 18.25 mg/dL (20.00-300.00); Microalbumin Urine Random 16.9 mg/dL (<=30.0); Protein Creatinine Ratio Urine 4.43; Total Protein Urine Random 80.9 mg/dL (<=11.9)
[2024-08-28 12:10] LABS: Bilirubin Urine NEGATIVE (NEGATIVE); Blood Urine TRACE-I (NEGATIVE); Clarity Urine CLEAR (CLEAR); Color Urine LT. YELLOW (YELLOW); Glucose Urine UA 100 mg/dL (NEGATIVE); Ketones Urine NEGATIVE (NEGATIVE); Leukocyte Esterase Urine MODERATE (NEGATIVE); Nitrite Urine POSITIVE (NEGATIVE); Protein Urine 100 mg/dL (NEG/TRACE); Urobilinogen Urine 0.2 EU/dL (0.2-1.0)
[2024-08-28 12:45] LABS: Albumin Level 2.8 g/dL (3.4-5.0); Anion Gap 15.9; BUN Creatinine Ratio 16.6; Calcium 8.4 mg/dL (8.5-10.1); Carbon Dioxide 20.9 mmol/L (21.0-32.0); Chloride 104 mmol/L (98-107); Estimated GFR (African America 21 (>=60 mL/min/1.73m^2); Estimated GFR (Non-African Ame 18 (>=60 mL/min/1.73m^2); Glucose 198 mg/dL (74-106); Magnesium 1.6 mg/dL (1.8-2.4); Phosphorus 5.5 mg/dL (2.6-4.7); Potassium 5.8 mmol/L (3.5-5.1); Sodium 135 mmol/L (136-145); Uric Acid 5.5 mg/dL (2.6-6.0)
[2024-08-28 12:47] LABS: Percent Iron Saturation 13.5 %
[2024-08-29 07:11] LABS: Vitamin B12 302 pg/mL (232-1245)
[2024-08-29 10:11] LABS: PTH, Intact 103 pg/mL (15-65)
== END 2024-08-28 11:05 | disposition home or self-care (01) ==
LOC: LAB 11:06
PROVIDERS: PCP Nurse Practitioner; Visit Provider Internal Medicine Nephrology
DX: E53.8 Deficiency of other specified B group vitamins (principal); E21.3 Hyperparathyroidism, unspecified; I12.9 Hypertensive chronic kidney disease with stage 1 through stage 4 chronic kidney disease, or unspecified chronic kidney disease; E87.5 Hyperkalemia; N28.1 Cyst of kidney, acquired; N18.9 Chronic kidney disease, unspecified; D63.1 Anemia in chronic kidney disease
CPT/HCPCS: 36415; 80069; 81003; 82043; 82306; 82570; 82607; 82728; 82746; 83540; 83550; 83735; 83970; 84156; 84550; 85027

== ENCOUNTER 2024-09-04 13:16 | Emergency (ER) | payer MEDICARE, SELFPAY ==
[2024-09-04] VITALS (35 sets, daily range): BP systolic 150–237; BP diastolic 86–120; PULSE 69–79; TEMP 36.8; O2SAT 91–100; BMI 24.4
--- NOTE | 2024-09-04 13:48 | ECG_ITS ---
[facility] Test Date: 2024-09-04 Pat Name: AISLINN CARNES Department: Room: - Gender: Female Promotional Representative: : 1960 Requested By: [id number] Order Number: [id number] Reading MD: MACK RAMSAY Measurements Intervals [place] Rate: 75 P: 68 [place]: 160 QRS: 73 QRSD: 74 T: 51 QT: 396 QTc: 425 Interpretive Statements 1100 Sinus rhythm 9110 normal ECG Compared to ECG 08/10/2024 11:50:32 No significant changes Electronically Signed On 09-04-2024 20:46:01 EST by MACK RAMSAY
--- NOTE | 2024-09-04 14:09 | ED.GENADUL1 ---
HPI HPI - General Adult General Chief complaint: Recheck/Abnormal Lab/Rx Stated complaint: ABNORMAL LAB VALUES Time Seen by Provider: 09/04/24 13:21 Source: patient Mode of arrival: walk-in Limitations: no limitations History of Present Illness HPI narrative: Patient presents to ED complaining of abnormal lab values and elevated blood pressure. She states she was at her kidney doctor's office and they told her to come into the emergency room. Patient states that she saw Dr. Garcia and he told her to come in for further evaluation due to the elevated blood pressure and increased kidney function and she also said he told her that she had high potassium. Her blood work was apparently done on the seventh. She says she has no pain no shortness of breath no chest pain no palpitations. She has no complaints at this time. She said she is on the verge of needing dialysis but is currently not on dialysis. She is alert and oriented in no acute distress. No further complaints at this time. Related Data Home Medications ?Medication ?Instructions ?Recorded ?Confirmed insulin lispro 100 unit/mL 1 sliding scale dose subcut QID 05/12/23 09/04/24 subcutaneous pen pregabalin 150 mg capsule 150 mg PO Q8H 05/12/23 09/04/24 hydrocodone 7.5 mg-acetaminophen 1 tab PO Q8H PRN pain 07/07/23 09/04/24 325 mg tablet ferrous sulfate 325 mg (65 mg 325 mg PO DAILY 01/10/24 09/04/24 iron) tablet (FeroSul) B-complex with vitamin C 1 cap PO DAILY 04/26/24 09/04/24 (Support-500 capsule) fluticasone propionate 50 1 spray intranasal DAILY PRN 04/26/24 09/04/24 mcg/actuation nasal allergies spray,suspension (24 Hour Allergy Relief) metoprolol succinate 50 mg 50 mg PO .qd 04/26/24 09/04/24 tablet,extended release 24 hr calcitriol 0.25 mcg capsule 0.25 mcg PO .3XAWEEK 08/10/24 09/04/24 Previous Rx's ?Medication ?Instructions ?Recorded insulin glargine 100 unit/mL (3 28 unit (0.28 mL) subcut QPM #0 mL 01/11/24 mL) subcutaneous pen (Lantus Solostar U-100 Insulin) atorvastatin 20 mg tablet (Lipitor) 20 mg PO DAILY #30 tabs 08/11/24 nitroglycerin 0.4 mg sublingual 0.4 mg sublingual Q5M PRN Pain #10 08/11/24 tablet tabs cephalexin 500 mg capsule 500 mg PO BID 5 days #10 caps 09/04/24 sodium zirconium cyclosilicate 5 5 g PO DAILY #30 ea 09/04/24 gram oral powder packet (Lokelma) Allergies Allergy/AdvReac Type Severity Reaction Status Date / Time latex Allergy Unknown rash Verified 09/05/24 00:11 Opioid HPI Opioid Management Most Recent Opioid Data: Last Pain Scale 2 08/10/24 20:00 08/10/24 Last ORT Total Score 0 08/10/24 16:31 08/10/24 Last ORT Risk Category Low Risk 08/10/24 16:31 08/10/24 Review of Systems ROS Status of ROS 10 or more systems reviewed and unremarkable except as noted in history and below [facility] Medical History (Updated 09/05/24 @ 00:26 by Ortiz Be MD) H/O stroke without residual deficits ?Z86.73 - Personal history of transient ischemic attack (TIA), and cerebral infarction without residual deficits (ICD-10) CKD (chronic kidney disease) stage 4, GFR 15-29 ml/min ?N18.4 - Chronic kidney disease, stage 4 (severe) (ICD-10) Pneumonia ?J18.9 - Pneumonia, unspecified organism (ICD-10) Acute UTI (urinary tract infection) ?N39.0 - Urinary tract infection, site not specified (ICD-10) Bilateral hydronephrosis ?N13.30 - Unspecified hydronephrosis (ICD-10) Amputation of left great toe ?S98.112A - Complete traumatic amputation of left great toe, initial encounter (ICD-10) 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 ?N18.9 - Chronic kidney disease, unspecified (ICD-10) ?Z85.528 - Personal history of other malignant neoplasm of kidney (ICD-10) Neuropathy ?G62.9 - Polyneuropathy, unspecified (ICD-10) DM2 (diabetes mellitus, type 2) ?E11.9 - Type 2 diabetes mellitus without complications (ICD-10) Chronic renal insufficiency ?N18.9 - Chronic kidney disease, unspecified (ICD-10) Hyperglycemia due to diabetes mellitus ?E11.65 - Type 2 diabetes mellitus with hyperglycemia (ICD-10) Urinary tract infection ?N39.0 - Urinary tract infection, site not specified (ICD-10) HTN (hypertension) ?I10 - Essential (primary) hypertension (ICD-10) Stroke ?I63.9 - Cerebral infarction, unspecified (ICD-10) Lupus ?M32.9 - Systemic lupus erythematosus, unspecified (ICD-10) Arthritis ?M19.90 - Unspecified osteoarthritis, unspecified site (ICD-10) Fibromyalgia ?M79.7 - Fibromyalgia (ICD-10) Diabetes ?E11.9 - Type 2 diabetes mellitus without complications (ICD-10) Chronic kidney disease (CKD) ?N18.9 - Chronic kidney disease, unspecified (ICD-10) Neoplasm of kidney ?D49.519 - Neoplasm of unspecified behavior of unspecified kidney (ICD-10) Surgical History (Updated 01/10/24 @ 15:56 by Ashley Sanchez) Hx of neck surgery ?Z98.890 - Other specified postprocedural states (ICD-10) History of shoulder surgery ?Z98.890 - Other specified postprocedural states (ICD-10) History of hysterectomy ?Z90.710 - Acquired absence of both cervix and uterus (ICD-10) Family History (Updated 01/10/24 @ 15:58 by Ashley Sanchez) Brother Family history of CHF (congestive heart failure) Family history of myocardial infarction Father Family history of CHF (congestive heart failure) Family history of COPD (chronic obstructive pulmonary disease) Family history of myocardial infarction Sister Family history of cancer Grandmother Family history of cancer Family history of diabetes mellitus Social History (Updated 04/26/24 @ 04:43 by Vonnie Tijerina) Within the past year, how often did you have a drink containing alcohol: never Within the past year, how often did you have six or more drinks on one occasion: never Score interpretation: A score less than 3 is consistent with normal alcohol consumption. Smoking status: Never smoker Non-prescribed substance use: denies use Known occupational exposures/hazards: No Highest level of school completed/degree received: high school graduate Do you want help with school or training: No Are you now , , , , never or living with a partner: In a typical week, how many times do you talk on the telephone with family, friends, or neighbors: 3 or more times per week How often do you get together with friends or relatives: 3 or more times per week How often do you attend jew or pentecostalism services: never Do you belong to any clubs or organizations such as jew groups unions, fraternal or athletic groups, or school groups: no Total score: 1 Score interpretation: A score of less than or equal to 1 indicates the most socially isolated. Little interest or pleasure in doing things: not at all Feeling down, depressed, or hopeless: not at all Feel stressed/tense/nervous/anxious/difficulty sleeping: to some extent Life stressors: other Life stressor details: Personal health Gender Identity: female Exam Narrative Exam Narrative: Time Seen: [] Vital Signs: [Per nurse's notes.] General: [Alert] Skin: [Warm, dry, no rash.] Head: [Normocephalic, atraumatic.] Neck: [Supple, trachea midline.] Eye: [Pupils are equal, round and reactive to light, extraocular movements are intact, normal conjunctiva.] Ears, nose, mouth and throat: oral mucosa moist. Cardiovascular: [Regular rate and rhythm, no murmur.] Respiratory: [Lungs are clear to auscultation, respirations are non-labored, breath sounds are equal.] Chest wall: [No tenderness, no deformity.] Gastrointestinal: [Soft, nontender, non distended, normal bowel sounds.] MSK: 5 out of 5 muscle strength x 4 extremities no calf pain or edema Lymphatics: [No lymphadenopathy.] Psychiatric: [Cooperative, appropriate mood & affect.] Neurological: [Alert and oriented to person, place, time, and situation, no focal neurological deficit observed.] Constitutional Vital Signs, click to edit/add: Last Vital Signs Temp 98.2 F 09/04/24 13:35 Pulse 76 09/04/24 19:30 Resp 18 09/04/24 19:30 BP 186/90 H 09/04/24 19:30 Pulse Ox 98 09/04/24 19:30 O2 Del Method Room Air 09/04/24 19:30 Course Vital Signs Vital signs: Vital Signs Temperature 98.2 F 09/04/24 13:35 Pulse Rate 76 09/04/24 13:35 Respiratory Rate 18 09/04/24 13:35 Blood Pressure 230/108 H 09/04/24 13:35 Pulse Oximetry 99 09/04/24 13:35 Oxygen Delivery Method Room Air 09/04/24 13:35 Temperature 98.2 F 09/04/24 13:35 Pulse Rate 76 09/04/24 19:30 Respiratory Rate 18 09/04/24 19:30 Blood Pressure 186/90 H 09/04/24 19:30 Pulse Oximetry 98 09/04/24 19:30 Oxygen Delivery Method Room Air 09/04/24 19:30 Medical Decision Making MDM Narrative Medical decision making narrative: I spoke to the patient's radio technician and they said if she did not have any obstruction on CT scan then she could go home with Lokelma. 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 When I talked to the patient she said she does self cath but she ran out of supplies and has not been doing it as often. I [facility] who requested that I clear this with urology because they do not have coverage every day there. I spoke to Dr. Olivo who states this is a chronic issue and most likely she can be managed outpatient. A Chaves catheter to may help drain her bladder and he also requested a bladder scan to see how much she is retaining. Bladder scan shows 150 mL in. Patient was able to urinate afterwards. I have a page back out to her radio technician to see if this can be managed outpatient as her labs are chronic and her potassium is only slightly elevated and she was given Lokelma. Differential Diagnosis Differential Diagnosis: Urinary retention, UTI, electrolyte abnormality, chronic kidney disease Medical Records Medical records reviewed: Yes I reviewed the patient's medical records Lab Data Lab results reviewed: Yes I reviewed the patient's lab results Labs: Lab Results 09/04/24 09/04/24 Range/Units 14:19 18:30 WBC 6.8 (4.0-11.0) 10^3/uL RBC 4.10 L (4.20-5.40) 10^6/uL Hgb 10.7 L (12.0-16.0) g/dL Hct 33.6 L (36.0-48.0) % MCV 82.0 (81.0-99.0) fL MCH 26.1 L (26.7-34.0) pg MCHC 31.8 (29.9-35.2) g/dL RDW 13.6 (11.0-15.0) % Plt Count 260 (150-450) 10^3/uL MPV 10.6 (9.5-13.5) fL Neut % (Auto) 58.6 (43.0-75.0) % Lymph % (Auto) 31.2 (20.5-60.0) % Stewart % (Auto) 5.7 (1.7-12.0) % Eos % (Auto) 2.7 (0.9-7.0) % Baso % (Auto) 0.6 (0.2-2.0) % Neut # (Auto) 4.0 (1.4-6.5) 10^3/uL Lymph # (Auto) 2.1 (1.2-3.8) 10^3/uL Stewart # (Auto) 0.4 (0.3-0.8) 10^3/uL Eos # (Auto) 0.2 (0.0-0.7) 10^3/uL Baso # (Auto) 0.0 (0.0-0.1) 10^3/uL Abs Immat Gran (auto) 0.08 H (0.00-0.03) 10^3/uL Imm/Tot Granulo (auto) 1.2 H (0.0-0.5) % Sodium 138 (136-145) mmol/L Potassium 5.3 H (3.5-5.1) mmol/L Chloride 108 H (98-107) mmol/L Carbon Dioxide 23.7 (21.0-32.0) mmol/L Anion Gap 11.6 BUN 30.0 H (7.0-18.0) mg/dL Creatinine 2.35 H (0.55-1.02) mg/dL Est GFR ( Amer) 25 L (>=60 mL/min/1.73m^2) Est GFR (Non-Af Amer) 21 L (>=60 mL/min/1.73m^2) BUN/Creatinine Ratio 12.8 Glucose 154 H (74-106) mg/dL Calcium 8.9 (8.5-10.1) mg/dL Total Bilirubin 0.3 (0.2-1.0) mg/dL AST 15 (15-37) U/L ALT 22 (14-59) U/L Alkaline Phosphatase 116 (46-116) U/L Troponin I High Sens 11.0 (4.0-51.3) pg/mL Total Protein 8.5 H (6.4-8.2) g/dL Albumin 2.9 L (3.4-5.0) g/dL Globulin 5.6 g/dL Albumin/Globulin Ratio 0.5 Urine Color Lt. yellow (YELLOW) Urine Clarity Sl cloudy (CLEAR) Urine pH 5.5 (5.0-9.0) Ur Specific [place] 1.020 (1.005-1.025) Urine Protein >=300 A (NEG/TRACE) mg/dL Urine Glucose (UA) Negative (NEGATIVE) mg/dL Urine Ketones Negative (NEGATIVE) mg/dL Urine Occult Blood Trace-i (NEGATIVE) Urine Nitrite Negative (NEGATIVE) Urine Bilirubin Negative (NEGATIVE) Urine Urobilinogen 0.2 (0.2-1.0) EU/dL Ur Leukocyte Esterase Small A (NEGATIVE) Urine RBC 0-2 (0-2) #/HPF Urine WBC 10-20 A (NONE SEEN) #/HPF Ur Squamous Epith Cells Few A (NONE/RARE) #/LPF Urine Crystals None seen (None Seen) #/HPF Urine Bacteria Moderate A (NONE SEEN) #/HPF Urine Casts None seen (NONE SEEN) #/LPF Urine Mucus None seen (NONE SEEN) Ur Culture Indicated? Yes Imaging Data CT scan - abdomen: Radiologist's impression: ITS Impressions Abdomen/Pelvis CT 09/04/24 16:08 IMPRESSION: 1. Prominent bilateral hydroureteronephrosis identified to the level of the urinary bladder with no renal or ureteral calculi. The wall of the ureters are thickened bilaterally concerning for ureteritis. The urinary bladder is also distended with a thickened wall concerning for cystitis or sequela of chronic bladder outlet obstruction. Correlate clinically. Given a combination of findings there is concern for severe bilateral vesicular reflux. Postsurgical again seen in the lateral aspect of the left kidney from prior resection of a complex cystic tumor. 2. Soft tissue nodule in the inferior segment of the lingula measuring 11.5 mm, measured 10 mm on 02/10/2023 and 8 mm on 11/04/2021. While this may correspond to a slow-growing benign lesion, low-grade malignancy cannot be entirely excluded and precautionary correlation with PET/CT recommended. Electronically authenticated by: Lydia ANDINO Date: 09/04/2024 17:00 ECG Data Attestation: I personally reviewed and interpreted this ECG as follows: Interpretation: EKG INTERPRETATION Time: [] 1357 Rate: [] 75 Rhythm: _ [] Normal sinus rhythm ST segments: _ [] No acute ST elevation or depression T waves: _ [] Ectopy: _ [] P wave/FL interval: _ [] QRS interval: _ [] QT interval: _ [] Comparison: _ [] Comparison EKG date: [] Performed by: [self] Discharge Plan Discharge Chief Complaint: Recheck/Abnormal Lab/Rx Clinical Impression: Bladder outlet obstruction, Acute hyperkalemia, CKD (chronic kidney disease) Patient Disposition: Home, Self-Care Time of Disposition Decision: 18:54 Condition: Good Mode of Transportation: Private Vehicle Prescriptions / Home Meds: New Lokelma 5 gram powder in packet 5 g PO DAILY Qty: 30 0RF Rx Instructions: take daily cephalexin 500 mg capsule 500 mg PO BID 5 Days Qty: 10 0RF No Action insulin lispro 100 unit/mL insulin pen 1 sliding scale dose SUBCUT QID pregabalin 150 mg capsule 150 mg PO Q8H ferrous sulfate [FeroSul] 325 mg (65 mg iron) tablet 325 mg PO DAILY insulin glargine [Lantus Solostar U-100 Insulin] 100 unit/mL (3 mL) insulin pen 28 unit subcut QPM Qty: 0 0RF hydrocodone-acetaminophen 7.5-325 mg tablet 1 tab PO Q8H PRN (Reason: pain) B-complex with vitamin C [Support-500] Capsule 1 cap PO DAILY fluticasone propionate [24 Hour Allergy Relief] 50 mcg/actuation spray,suspension 1 spray intranasal DAILY PRN (Reason: allergies) Rx Instructions: administer into each nostril metoprolol succinate 50 mg tablet extended release 24 hr 50 mg PO .qd calcitriol 0.25 mcg capsule 0.25 mcg PO .3XAWEEK atorvastatin [Lipitor] 20 mg tablet 20 mg PO DAILY Qty: 30 0RF nitroglycerin 0.4 mg tablet, sublingual 0.4 mg sublingual Q5M PRN (Reason: Pain) Qty: 10 0RF Rx Instructions: do not exceed 3 doses per episode, call MD or go to ED if no response to [facility] Nitro Print Language: Swedish Instructions: Chronic Kidney Disease (ED), Hyperkalemia (ED), Acute Urinary Retention in Women (ED) Referrals: Scott Olivo MD [Physician] - 1 week Latosha Olmstead NP [Primary Care Provider] - 1 week Discharge Date/Time: 09/04/24 19:32
[2024-09-04 14:24] LABS: Basophils Percent Auto 0.6 % (0.2-2.0); Eosinophils Absolute Auto 0.2 10^3/uL (0.0-0.7); Eosinophils Percent Auto 2.7 % (0.9-7.0); Hematocrit 33.6 % (36.0-48.0); Hemoglobin 10.7 g/dL (12.0-16.0); Immature Granulocytes Abs Auto 0.08 10^3/uL (0.00-0.03); Immature Granulocytes Pct Auto 1.2 % (0.0-0.5); Lymphocytes Absolute Auto 2.1 10^3/uL (1.2-3.8); Lymphocytes Percent Auto 31.2 % (20.5-60.0); Mean Corpuscular HGB Conc 31.8 g/dL (29.9-35.2); Mean Corpuscular Hemoglobin 26.1 pg (26.7-34.0); Mean Platelet Volume 10.6 fL (9.5-13.5); Monocytes Absolute Auto 0.4 10^3/uL (0.3-0.8); Monocytes Percent Auto 5.7 % (1.7-12.0); Neutrophils Percent Auto 58.6 % (43.0-75.0); Platelet Count 260 10^3/uL (150-450); Red Cell Distribution Width 13.6 % (11.0-15.0); White Blood Count 6.8 10^3/uL (4.0-11.0)
[2024-09-04] MEDS: HYDRALAZINE HCL 20 MG/ML VIAL 10 MG IVP (14:25)
[2024-09-04 14:43] LABS: Alanine Aminotransferase 22 U/L (14-59); Albumin Globulin Ratio 0.5; Albumin Level 2.9 g/dL (3.4-5.0); Alkaline Phosphatase 116 U/L (46-116); Anion Gap 11.6; Aspartate Amino Transferase 15 U/L (15-37); BUN Creatinine Ratio 12.8; Bilirubin Total 0.3 mg/dL (0.2-1.0); Calcium 8.9 mg/dL (8.5-10.1); Carbon Dioxide 23.7 mmol/L (21.0-32.0); Chloride 108 mmol/L (98-107); Estimated GFR (African America 25 (>=60 mL/min/1.73m^2); Estimated GFR (Non-African Ame 21 (>=60 mL/min/1.73m^2); Globulin 5.6 g/dL; Glucose 154 mg/dL (74-106); Potassium 5.3 mmol/L (3.5-5.1); Sodium 138 mmol/L (136-145); Total Protein 8.5 g/dL (6.4-8.2)
[2024-09-04] MEDS: SODIUM ZIRCONIUM CYCLOSILICATE 10 GM POWD.PACK PO (15:01)
--- NOTE | 2024-09-04 16:08 | CT_ITS ---
The [address] [address] Patient Name: AISLINN CARNES MRN: [id number] date: 1960 Sex: F Assigned Patient Location: ER Current Patient Location: ER Accession/Order Number: [id number] Exam Date: 09/04/2024 16:05 Report Date: 09/04/2024 17:00 At the request of: IRVIN REYNOLDS Procedure: CT abdomen pelvis wo con CT SCAN OF THE ABDOMEN AND PELVIS WITHOUT CONTRAST, 09/04/2024 4:05 PM EST COMPARISON: CT scan of the abdomen and pelvis, 04/27/2024, CT scan of the abdomen and pelvis, 02/10/[address] scan of the chest, 11/04/2021. CLINICAL HISTORY: poss hydro /abnormal labs with high blood pressure. TECHNIQUE: 3 mm axial images performed through the abdomen and pelvis without contrast. 3 mm sagittal and coronal MPR reconstructions performed. Dose reduction techniques were achieved by using automated exposure control and/or adjustment of mA and/or kV according to patient size and/or use of iterative reconstruction technique. ABDOMINAL CT SCAN FINDINGS: Soft tissue nodule in the inferior segment of the lingula measuring 11.5 mm measured approximately 10 mm on 02/10/2023 and 8 mm in 2021 Some mild age-related pancreatic atrophy. Postsurgical scarring along the lateral cortex of the left kidney from prior resection of the complex cystic mass. Some mild cortical scarring present. Prominent bilateral hydroureteronephrosis identified to the level of the urinary bladder with thickening involving the wall of the ureters bilaterally. No renal or ureteral calculi. Prior cholecystectomy. No intrahepatic biliary ductal or pancreatic ductal dilatation. Spleen and remaining nonenhanced abdominal solid organs unremarkable. Small fat-containing umbilical hernia with an opening orifice measuring [address] findings: Prominent thickening of the urinary bladder wall which is distended to the level of the sacral promontory. Patient has had prior hysterectomy. No bowel obstruction. Mild to moderate amount of fecal matter in the colon. Appendix is normal. No acute osseous abnormality. Chronic compression deformity along the superior endplate of L1 vertebral body slightly greater to the right of midline remains stable. CT/CT abdomen pelvis wo con IMPRESSION: 1. Prominent bilateral hydroureteronephrosis identified to the level of the urinary bladder with no renal or ureteral calculi. The wall of the ureters are thickened bilaterally concerning for ureteritis. The urinary bladder is also distended with a thickened wall concerning for cystitis or sequela of chronic bladder outlet obstruction. Correlate clinically. Given a combination of findings there is concern for severe bilateral vesicular reflux. Postsurgical again seen in the lateral aspect of the left kidney from prior resection of a complex cystic tumor. 2. Soft tissue nodule in the inferior segment of the lingula measuring 11.5 mm, measured 10 mm on 02/10/2023 and 8 mm on 11/04/2021. While this may correspond to a slow-growing benign lesion, low-grade malignancy cannot be entirely excluded and precautionary correlation with PET/CT recommended. Electronically authenticated by: Lydia ANDINO Date: 09/04/2024 17:00
[2024-09-04 18:36] LABS: Bilirubin Urine NEGATIVE (NEGATIVE); Blood Urine TRACE-I (NEGATIVE); Clarity Urine SL CLOUDY (CLEAR); Color Urine LT. YELLOW (YELLOW); Glucose Urine UA NEGATIVE (NEGATIVE); Ketones Urine NEGATIVE (NEGATIVE); Leukocyte Esterase Urine SMALL (NEGATIVE); Nitrite Urine NEGATIVE (NEGATIVE); Protein Urine >=300 mg/dL (NEG/TRACE); Urine Microscopic Indicated YES; Urobilinogen Urine 0.2 EU/dL (0.2-1.0); pH Urine 5.5 (5.0-9.0)
[2024-09-04 18:42] LABS: Bacteria Urine MODERATE #/HPF (NONE SEEN); Cast Seen? NONE SEEN #/LPF (NONE SEEN); Crystals Seen? None Seen #/HPF (None Seen); Mucus Urine NONE SEEN (NONE SEEN); RBC Urine 0-2 #/HPF (0-2); Squamous Epithelial Cell Urine FEW #/LPF (NONE/RARE); Urine Culture Indicated YES
== END 2024-09-04 19:32 | disposition home or self-care (01) ==
PROVIDERS: Emergency Provider Emergency Medicine; PCP Nurse Practitioner
DX: E87.5 Hyperkalemia (principal); Z90.710 Acquired absence of both cervix and uterus; N13.30 Unspecified hydronephrosis; N32.0 Bladder-neck obstruction; N18.9 Chronic kidney disease, unspecified; I12.9 Hypertensive chronic kidney disease with stage 1 through stage 4 chronic kidney disease, or unspecified chronic kidney disease; R82.998 Other abnormal findings in urine
CPT/HCPCS: 36415; 51702; 74176; 80053; 81001; 84484; 85025; 87086; 87150; 87186; 93005; 96374; 99285; J0360

== ENCOUNTER 2024-09-05 00:08 | Emergency (ER) | payer MEDICARE, SELFPAY ==
[2024-09-05 00:11] VITALS: BP 199/87; PULSE 86; TEMP 36.6; O2SAT 100; BMI 23.4
--- NOTE | 2024-09-05 00:26 | ED_ITS ---
HPI - Female Genitourinary General Chief complaint: Urogenital-Female Stated complaint: CATHETER ISSUE Time Seen by Provider: 09/05/24 00:09 Source: patient Mode of arrival: walk-in Limitations: no limitations History of Present Illness HPI Narrative: 64-year-old female to the emergency department for removal of Chaves catheter. Patient reports she had a Chaves catheter placed earlier in the day for chronic bladder obstruction. She reports she has had a pink tinge to her urine and significant discomfort since being discharged. She would like the Chaves catheter removed. Related Data Home Medications ?Medication ?Instructions ?Recorded ?Confirmed insulin lispro 100 unit/mL 1 sliding scale dose subcut QID 05/12/23 09/04/24 subcutaneous pen pregabalin 150 mg capsule 150 mg PO Q8H 05/12/23 09/04/24 hydrocodone 7.5 mg-acetaminophen 1 tab PO Q8H PRN pain 07/07/23 09/04/24 325 mg tablet ferrous sulfate 325 mg (65 mg 325 mg PO DAILY 01/10/24 09/04/24 iron) tablet (FeroSul) B-complex with vitamin C 1 cap PO DAILY 04/26/24 09/04/24 (Support-500 capsule) fluticasone propionate 50 1 spray intranasal DAILY PRN 04/26/24 09/04/24 mcg/actuation nasal allergies spray,suspension (24 Hour Allergy Relief) metoprolol succinate 50 mg 50 mg PO .qd 04/26/24 09/04/24 tablet,extended release 24 hr calcitriol 0.25 mcg capsule 0.25 mcg PO .3XAWEEK 08/10/24 09/04/24 Previous Rx's ?Medication ?Instructions ?Recorded insulin glargine 100 unit/mL (3 28 unit (0.28 mL) subcut QPM #0 mL 01/11/24 mL) subcutaneous pen (Lantus Solostar U-100 Insulin) atorvastatin 20 mg tablet (Lipitor) 20 mg PO DAILY #30 tabs 08/11/24 nitroglycerin 0.4 mg sublingual 0.4 mg sublingual Q5M PRN Pain #10 08/11/24 tablet tabs cephalexin 500 mg capsule 500 mg PO BID 5 days #10 caps 09/04/24 sodium zirconium cyclosilicate 5 5 g PO DAILY #30 ea 09/04/24 gram oral powder packet (Lokelma) Allergies Allergy/AdvReac Type Severity Reaction Status Date / Time latex Allergy Unknown rash Verified 09/05/24 00:11 Review of Systems ROS Status of ROS 10 or more systems reviewed and unremark able except as noted in history and below [facility] Medical History (Updated 09/05/24 @ 00:26 by Ortiz Be MD) H/O stroke without residual deficits ?Z86.73 - Personal history of transient ischemic attack (TIA), and cerebral infarction without residual deficits (ICD-10) CKD (chronic kidney disease) stage 4, GFR 15-29 ml/min ?N18.4 - Chronic kidney disease, stage 4 (severe) (ICD-10) Pneumonia ?J18.9 - Pneumonia, unspecified organism (ICD-10) Acute UTI (urinary tract infection) ?N39.0 - Urinary tract infection, site not specified (ICD-10) Bilateral hydronephrosis ?N13.30 - Unspecified hydronephrosis (ICD-10) Amputation of left great toe ?S98.112A - Complete traumatic amputation of left great toe, initial encounter (ICD-10) 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 ?N18.9 - Chronic kidney disease, unspecified (ICD-10) ?Z85.528 - Personal history of other malignant neoplasm of kidney (ICD-10) Neuropathy ?G62.9 - Polyneuropathy, unspecified (ICD-10) DM2 (diabetes mellitus, type 2) ?E11.9 - Type 2 diabetes mellitus without complications (ICD-10) Chronic renal insufficiency ?N18.9 - Chronic kidney disease, unspecified (ICD-10) Hyperglycemia due to diabetes mellitus ?E11.65 - Type 2 diabetes mellitus with hyperglycemia (ICD-10) Urinary tract infection ?N39.0 - Urinary tract infection, site not specified (ICD-10) HTN (hypertension) ?I10 - Essential (primary) hypertension (ICD-10) Stroke ?I63.9 - Cerebral infarction, unspecified (ICD-10) Lupus ?M32.9 - Systemic lupus erythematosus, unspecified (ICD-10) Arthritis ?M19.90 - Unspecified osteoarthritis, unspecified site (ICD-10) Fibromyalgia ?M79.7 - Fibromyalgia (ICD-10) Diabetes ?E11.9 - Type 2 diabetes mellitus without complications (ICD-10) Chronic kidney disease (CKD) ?N18.9 - Chronic kidney disease, unspecified (ICD-10) Neoplasm of kidney ?D49.519 - Neoplasm of unspecified behavior of unspecified kidney (ICD-10) Surgical History (Updated 01/10/24 @ 15:56 by Ashley Sanchez) Hx of neck surgery ?Z98.890 - Other specified postprocedural states (ICD-10) History of shoulder surgery ?Z98.890 - Other specified postprocedural states (ICD-10) History of hysterectomy ?Z90.710 - Acquired absence of both cervix and uterus (ICD-10) Family History (Updated 01/10/24 @ 15:58 by Ashley Sanchez) Brother Family history of CHF (congestive heart failure) Family history of myocardial infarction Father Family history of CHF (congestive heart failure) Family history of COPD (chronic obstructive pulmonary disease) Family history of myocardial infarction Sister Family history of cancer Grandmother Family history of cancer Family history of diabetes mellitus Social History (Updated 04/26/24 @ 04:43 by Vonnie Tijerina) Within the past year, how often did you have a drink containing alcohol: never Within the past year, how often did you have six or more drinks on one occasion: never Score interpretation: A score less than 3 is consistent with normal alcohol consumption. Smoking status: Never smoker Non-prescribed substance use: denies use Known occupational exposures/hazards: No Highest level of school completed/degree received: high school graduate Do you want help with school or training: No Are you now , , , , never or living with a partner: In a typical week, how many times do you talk on the telephone with family, friends, or neighbors: 3 or more times per week How often do you get together with friends or relatives: 3 or more times per week How often do you attend methodist or anglican services: never Do you belong to any clubs or organizations such as methodist groups unions, fraternal or athletic groups, or school groups: no Total score: 1 Score interpretation: A score of less than or equal to 1 indicates the most socially isolated. Little interest or pleasure in doing things: not at all Feeling down, depressed, or hopeless: not at all Feel stressed/tense/nervous/anxious/difficulty sleeping: to some extent Life stressors: other Life stressor details: Personal health Gender Identity: female Exam Narrative Exam Narrative: VITALS: I have reviewed the triage vital signs. GENERAL: Well developed, well appearing adult in no acute distress. NEURO: Alert and oriented. Moves all extremities. Face is symmetric and express verenice. EYES: PERRL. No scleral icterus or conjunctival injection. No discharge. HENT: Normocephalic, atraumatic. Hearing is grossly intact. Nares grossly patent and without discharge. Mucous membranes moist. NECK: No JVD. Patient moves neck without restriction. GI/: Abdomen is soft and non-tender. Normoactive bowel sounds. EXTREMITIES: Symmetric muscle bulk. No joint swelling. No clubbing, cyanosis, or deformity. SKIN: Warm and dry. Normal turgor. No rash or lesions appreciated. PSYCH: Mood, affect, and interaction is appropriate to the setting. Constitutional Vital Signs, click to edit/add: Last Vital Signs Temp 97.9 F 09/05/24 00:11 Pulse 86 09/05/24 00:11 Resp 20 09/05/24 00:11 BP 199/87 H 09/05/24 00:11 Pulse Ox 100 09/05/24 00:11 O2 Del Method Room Air 09/05/24 00:11 Course Vital Signs Vital signs: Vital Signs Temperature 97.9 F 09/05/24 00:11 Pulse Rate 86 09/05/24 00:11 Respiratory Rate 20 09/05/24 00:11 Blood Pressure 199/87 H 09/05/24 00:11 Pulse Oximetry 100 09/05/24 00:11 Oxygen Delivery Method Room Air 09/05/24 00:11 Temperature 97.9 F 09/05/24 00:11 Pulse Rate 86 09/05/24 00:11 Respiratory Rate 20 09/05/24 00:11 Blood Pressure 199/87 H 09/05/24 00:11 Pulse Oximetry 100 09/05/24 00:11 Oxygen Delivery Method Room Air 09/05/24 00:11 MDM - Female Genitourinary MDM Narrative Medical decision making narrative: 64-year-old female to the emergency department for Chaves catheter removal. Vital stable, the patient is afebrile. Patient reports she has had pink-tinged urine since placement. She reports is very comfortable and she does not wish to have the catheter. I discussed with the patient the indication for the placement of the catheter. She has a chronic bladder obstruction. She had some hydronephrosis. She already has poor renal function. Discussed with her the risk of worsening her renal function. Discussed with her the risk of urine retention after removal. After discussion of the risks of removing the Chaves catheter the patient would like it removed. Chaves catheter was removed. She is instructed to follow-up with her urologist. Discussed indications she needs to return for replacement. All questions were answered. The patient was discharged home. Medical Records Attestation: I reviewed the patient's medical records. Lab Data Attestation: I reviewed the patient's lab results. Discharge Plan Discharge Chief Complaint: Urogenital-Female Clinical Impression: Complication of Chaves catheter Patient Disposition: Home, Self-Care Time of Disposition Decision: 00:25 Condition: Good Mode of Transportation: Private Vehicle Prescriptions / Home Meds: No Action insulin lispro 100 unit/mL insulin pen 1 sliding scale dose SUBCUT QID pregabalin 150 mg capsule 150 mg PO Q8H ferrous sulfate [FeroSul] 325 mg (65 mg iron) tablet 325 mg PO DAILY insulin glargine [Lantus Solostar U-100 Insulin] 100 unit/mL (3 mL) insulin pen 28 unit subcut QPM Qty: 0 0RF Lokelma 5 gram powder in packet 5 g PO DAILY Qty: 30 0RF Rx Instructions: take daily cephalexin 500 mg capsule 500 mg PO BID 5 Days Qty: 10 0RF hydrocodone-acetaminophen 7.5-325 mg tablet 1 tab PO Q8H PRN (Reason: pain) B-complex with vitamin C [Support-500] Capsule 1 cap PO DAILY fluticasone propionate [24 Hour Allergy Relief] 50 mcg/actuation spray,suspension 1 spray intranasal DAILY PRN (Reason: allergies) Rx Instructions: administer into each nostril metoprolol succinate 50 mg tablet extended release 24 hr 50 mg PO .qd calcitriol 0.25 mcg capsule 0.25 mcg PO .3XAWEEK atorvastatin [Lipitor] 20 mg tablet 20 mg PO DAILY Qty: 30 0RF nitroglycerin 0.4 mg tablet, sublingual 0.4 mg sublingual Q5M PRN (Reason: Pain) Qty: 10 0RF Rx Instructions: do not exceed 3 doses per episode, call MD or go to ED if no response to [facility] Print Language: Uzbek Instructions: Chronic Urinary Retention in Women (ED), Chaves Catheter Removal (DC) Additional Instructions: Call the office of your primary care doctor to arrange for follow-up within the above-stated timeframe. Your ED visit was focused on your acute issue and does not replace primary care. You should review your labs, imaging, and diagnoses from this ED visit with your primary care physician. There may be non-emergent/ incidental findings that need further evaluation. You should review your vital signs including blood pressure with your PCP. If you were prescribed medications you should discuss possible side-effects and drug interactions with your pharmacist. Call 911 or go to the nearest Emergency Department if you develop any new or worsening symptoms. If he cannot urinate and are having increasing lower abdominal pain pressure return to the emergency department immediately for replacement of the catheter. Referrals: Scott Olivo MD [Physician] - 1 week Latosha Olmstead NP [Primary Care Provider] - 1 week
--- OUTSIDE RECORDS SUMMARY | 2024-09-05 00:28 | XMS_ITS | CCD ---
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 Name Role Phone Pcp, No Primary Care Provider Unavailabl e AGUSTO OLMSTEAD Primary Care Physician [phone] ZaEli russo Unavailable AICHMUNDO, MANAGER UTILIZATION MANAGEMENT AGUSTO Attending Unavailable AICHHOLZ, MANAGER UTILIZATION MANAGEMENT AGUSTO Consulting Unavailable AICHHOLZ, MANAGER UTILIZATION MANAGEMENT AGUSTO Admitting Unavailable AICHHOLZ, MANAGER UTILIZATION MANAGEMENT AGUSTO Primary Care Unavailable RAMON HUNTLEY Attending Unavailable RAMON HUNTLEY Admitting Unavailable REQUEST, DR DANNIE LISTED Primary Care Unavaila georgi DELVALLE, DR THANH García Consulting Unavailable RAMON HUNTLEY Consulting Unavailable AICHHOLZ, MANAGER UTILIZATION MANAGEMENT AGUSTO Primary Care Unavailable RAMON HUNTLEY Admitting Unavailable RAMON HUNTLEY Attending Unavailable AICHHOLZ, MANAGER UTILIZATION MANAGEMENT AGUSTO Primary Care Unavailable SHAIKH Christiano SANFORD Consulting Unavailable LUKASWWAPrimo AMADO H Admitting Unavailable FAWWASHAIKH Tillman H Attending Unavailable AICHHOLZ, MANAGER UTILIZATION MANAGEMENT AGUSTO Consulting Unavailable AICHHOLZ, MANAGER UTILIZATION MANAGEMENT AGUSTO Admitting Unavailable AICHHOLZ, MANAGER UTILIZATION MANAGEMENT AGUSTO Attending Unavailable AICHHOLZ, MANAGER UTILIZATION MANAGEMENT AGUSTO Primary Care Unavailable RAMON HUNTLEY Attending Unavailable AICHHOLZ, MANAGER UTILIZATION MANAGEMENT AGUSTO Primary Care Unavailable RAMON HUNTLEY Admitting Unavailable WEST, DR NUBIA Carlos Consulting Unavailable RAMON HUNTLEY Consulting Unavailable AICHHOLZ, MANAGER UTILIZATION MANAGEMENT AGUSTO Primary Care Unavailable BHARAT, DR NUBIA Carlos Consulting Unavailable CAMMIE SEGURA Admitting Unavailable CAMMIE SEGURA Attending Unavailable CAMMIE SEGURA Consulting Unavailable AICHHOLZ, MANAGER UTILIZATION MANAGEMENT AGUSTO Primary Care Unavailable AICHHOLZ, MANAGER UTILIZATION MANAGEMENT AGUSTO Attending Unavailable AICHHOLZ, MANAGER UTILIZATION MANAGEMENT AGUSTO Admitting Unavailable BHARAT, DR NUBIA Carlos Consulting Unavailable AICHHOLZ, MANAGER UTILIZATION MANAGEMENT AGUSTO Consulting Unavailable AICHHOLZ, MANAGER UTILIZATION MANAGEMENT AGUSTO Primary Care Unavailable CAMMIE SEGURA Admitting Unavailable COLTONCAMMIE Attending Unavailable COLTON, CAMMIE Consulting Unavailable AICHHOLZ, MANAGER UTILIZATION MANAGEMENT AGUSTO Primary Care Unavailable AICHHOLZ, MANAGER UTILIZATION MANAGEMENT AGUSTO Attending Unavailable AICHHOLZ, MANAGER UTILIZATION MANAGEMENT AGUSTO Consulting Unavailable AICHHOLZ, MANAGER UTILIZATION MANAGEMENT AGUSTO Admitting Unavailable AICHHOLZ, MANAGER UTILIZATION MANAGEMENT AGUSTO Primary Care Unavailable BHARAT, DR NUBIA Carlos Consulting Unavailable COLTON, CAMMIE Admitting Unavailable COLTON, CAMMIE Attending Unavailable COLTON, CAMMIE Consulting Unavailable AICHHOLZ, MANAGER UTILIZATION MANAGEMENT AGUSTO Primary Care Unavailable ZIEBER, DR THANH García Consulting Unavailable HIGHLANDER, PETER D Attending Unavailable HIGHLANDER, PETER D Admitting Unavailable HIGHLANDER, PETER D Consulting Unavailable AICHHOLZ, MANAGER UTILIZATION MANAGEMENT AGUSTO Primary Care Unavailable FOSTER ., DR PAGE Admitting Unavailable FOSTER ., DR PAGE Attending Unavailable FOSTER ., DR PAGE Consulting Unavailable ZIEBER, DR THANH García Consulting Unavailable HIGHLANDER, PETER D Admitting Unavailable AICHHOLZ, MANAGER UTILIZATION MANAGEMENT AGUSTO Primary Care Unavailable ZIEBER, DR THANH García Consulting Unavailable HIGHLANDER, PETER D Attending Unavailable HIGHLANDER, PETER D Consulting Unavailable AICHHOLZ, MANAGER UTILIZATION MANAGEMENT AGUSTO Primary Care Unavailable AICHHOLZ, MANAGER UTILIZATION MANAGEMENT AGUSTO Attending Unavailable AICHHOLZ, MANAGER UTILIZATION MANAGEMENT AGUSTO Consulting Unavailable AICHHOLZ, MANAGER UTILIZATION MANAGEMENT AGUSTO Admitting Unavailable ZIEBER, DR THANH García Consulting Unavailable AICHHOLZ, MANAGER UTILIZATION MANAGEMENT AGUSTO Primary Care Unavailable ZIEBER, DR THANH García Consulting Unavailable HIGHLANDER, PETER D Attending Unavailable HIGHLANDER, PETER D Admitting Unavailable HIGHLANDER, PETER D Consulting Unavailable AICHHOLZ, MANAGER UTILIZATION MANAGEMENT AGUSTO Primary Care Unavailable DIONNEER, DR THANH García Consulting Unavailable COLTON, CAMMIE Admitting Unavailable COLTON, CAMMIE Attending Unavailable COLTON, CAMMIE Consulting Unavailable WANDY .RAQUEL Admitting Unavailable WANDY .RAQUEL Attending Unavailable KASIE CANDELARIO Consulting Unavailable REQUEST, DR PANDEY LISTED Primary Care Unavaila georgi SABA ., RAQUEL Consulting Unavailable LYLE MATIAS Consulting Unavailable AICHHOLZ, MANAGER UTILIZATION MANAGEMENT AGUSTO Primary Care Unavailable HAY ., DR CARMONA Admitting Unavailable HAY ., DR CARMONA Attending Unavailable HAY ., DR CARMONA Consulting Unavailable TONY LUO Consulting Unavailable NUBIA BATEMAN Consulting Unavailable AICHHOLZ, MANAGER UTILIZATION MANAGEMENT AGUSTO Primary Care Unavailable HIGHLANDER, PETER D Admitting Unavailable HIGHLANDER, PETER D Attending Unavailable HIGHLANDER, PETER D Admitting Unavailable AICHHOLZ, MANAGER UTILIZATION MANAGEMENT AGUSTO Primary Care Unavailable YUKO, RAMON Tillman Attending Unavailable HIGHLANDER, RAMON Tillman Admitting Unavailable AICHHOLZ, MANAGER UTILIZATION MANAGEMENT AGUSTO Primary Care Unavailable ADELIA, DR THANH García Consulting Unavailable HIGHLANDER, RAMON Tillman Attending Unavailable HIGHLANDER, RAMON Tillman Consulting Unavailable HIGHLANDER, RAMON Tillman Admitting Unavailable AICHHOLZ, MANAGER UTILIZATION MANAGEMENT AGUSTO Primary Care Unavailable YUKO, RAMON Tillman Attending Unavailable YUKO, RAMON Tillman Attending Unavailable HIGHLANDER, RAMON Tillman Admitting Unavailable REQUEST, DR NONE LISTED Primary Care Unavaila ble YUKO, RAMON Tillman Admitting Unavailable AICHHOLZ, MANAGER UTILIZATION MANAGEMENT AGUSTO Primary Care Unavailable HIGHLANDER, RAMON Tillman Attending Unavailable HIGHLANDER, RAMON Tillman Admitting Unavailable AICHHOLZ, MANAGER UTILIZATION MANAGEMENT AGUSTO Primary Care Unavailable HIGHLANDER, RAMON Tillman [...] ., GIANNI PETIT Consulting Unavailabl e HIGHLANDER, RAMON Tillman Procedure Practitioner Unava TONY [place] Consulting Unavailable YUKO, RAMON Tillman Consulting Unavailable BRANDO, KWADWO Consulting Unavailable NUBIA BATEMAN Unavailable GURU DAVISON Consulting Unavailable FRED, LANDON Consulting Unavailable ROSELIA ., LISA JIMENEZ Consulting Unavailable GEMBUSCAMDEN Consulting Unavailable REJI SMALLWOOD Consulting Unavailable AICHHOLZ, MANAGER UTILIZATION MANAGEMENT AGUSTO Primary Care Unavailable AMONATE, DR NUBIA Carlos Consulting Unavailable CAMMIE SEGURA Admitting Unavailable CAMMIE SEGURA Attending Unavailable CAMMIE SEGURA Consulting Unavailable YUKO, RAMON Tillman Admitting Unavailable AICHHOLZ, MANAGER UTILIZATION MANAGEMENT AGUSTO Primary Care Unavailable ADELIA, DR THANH García Consulting Unavailable YUKO, RAMON Tillman Attending Unavailable RAMON HUNTLEY Consulting Unavailable Fitt, Brigette Unavailable Mapus, Sohaildra Unavailable Lisa Porras MD Unavailable Agusto Olmstead Primary Care Provider Aysha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-Agusto CRAIG Primary Care Provider Lisa Porras MD Unavailable TorHermilaSumi Primary Care Unavailable Agusto Olmstead Attending Unavailable Agusto Olmstead Admitting Unavailable Lue, Lisa MIrina Referring Unavailable Lue, Lisa M. Admitting Unavailable Lue, Lisa M. Attending Unavailable CATALINAPROMISE CURIEL Attending Unavailab le CATALINA, PROMISE Rodriguez Admitting Unavailab le CATALINA, PROMISE JOHNS E Attending Unavailab le CATALINA, PROMISE JOHNS E Admitting Unavailab le CATALINA, PROMISE HEIDY E Attending Unavailab le CATALINA, PROMISE Rodriguez Admitting Unavailab le CATALINA, PROMISE JOHNS E Attending Unavailab brayden CATALINA, PROMISE Rodriguez Attending Unavailab le LuLisa rodriguez Attending Unavailable LueLisa MIrina Attending Unavailable LueLisa MIrina Attending Unavailable PROMISE ARNOLD E Attending Unavailab le AGUSTO OLMSTEAD Attending Unavailable CATALINA, PROMISE Rodriguez Attending Unavailab Lisa Anders Referring Unavailable Lue, Lisa MIrina Attending Unavailable PROMISE ARNOLD Attending Unavailab AGUSTO Limon Attending Unavailable Agusto Olmstead Primary Care Provider Agusto Olmstead Unavailable TAURUS BALLARD Attending Unavailable MADINAALYTAURUS Attending Unavailable TAURUS BALLARD Attending Unavailable TAURUS BALLARD Admitting Unavailable Agusto Olmstead Primary Care Provider Unavailabl e Agusto Olmstead Unavailable SWETA Albarado Referring Unavailable AGUSTO OLMSTEAD Primary Care Unavailable Kofi Gotti MD Primary Care Provider Aysha DELANEYN-MANAGER UTILIZATION MANAGEMENTAgusto Primary Care Provider TAURUS BALLARD Referring Unavailable JUANITO BARNARD Attending Unavailable CARMENZA NOLEN Attending Unavailable CARMENZA NOLEN Attending Unavailable SWETA LI Attending Unavailable AICHHOLZ, [...] AICHHOLZ, AGUSTO J Primary Care Unavailable Aichholz BEEF CATTLE GRAZIER, Agusto Unavailable Shen TAVERAS, Kofi Primary Care Provider ABRAM OLMSTEADA Attending Unavailable AICHHOLZ, AGUSTO Attending Unavailable AICHHOLZ, AGUSTO Attending Unavailable AICHHOLZ, AGUSTO Attending Unavailable AICHHOLZ, AGUSTO Attending Unavailable AICHHOLZ, AGUSTO Attending Unavailable AICHHOLZ, AGUSTO Attending Unavailable Allergies Allergy Classification Reported Allergen(s) Allergy Type Date of Onset Reaction(s) Facility Latex (2 sources) Latex Substance Allergy 0 Rash [facility] (20 sources) Latex; Translations: [Latex] Allergy to substance 0 Eruption of skin (disorder), Rash [facility] Medications Current Medications Medication Drug Class(es) Dates [...] oral tablet (20 sources) Opioid Agonist Start: 09-04-2024 take 1 tablet by mouth every eight hours Hydrocodone-Acetami nophen 7.5-325 mg tablet Active 1 TAB PO Every 8 hours September 04, 2024 11:19am Start: 08-25-2024 take 1 tablet by rain th three times daily as needed for pain HYDROcodone-acetaminophen (NORCO) 7.5-32 5 mg per tablet Indications: Reflex sympathetic dystrophy of right upper extremity Take 1 tablet by mouth 3 (three) times a day as needed for pain. 90 tablet 08/25/2024 Active Start: 03-19-2024 End: 09-04-2024 take 1 tablet by mouth three times daily as needed for pain HYDROcodone-acetaminophen (NORCO) 7.5-32 5 mg per tablet Indications: Reflex sympathetic dystrophy of right upper extremity Take 1 tablet by mouth 3 (three) times a day as needed for pain. 90 tablet 07/26/2024 08/22/2024 Discontinued (Reorder) Start: 11-16-2023 take 1 tablet by rain th three [...] mouth three times daily as needed HYDROcodone-acetaminophen (Ava) 7.5-32 5 MG tablet Take 1 tablet [...] for wheezing/shortness of breath. AMBULATORY COMPOUNDED MEDICATION (7 sources) Start: AMBULATORY COMPOUNDED MEDICATION Apply 120 g topically See Admin Instructions. Formula 8E Apply 1-2 grams topically to affected area three to four times daily 120 g 2 08/22/2018 Active atorvastatin 20 mg oral tablet (5 sources) HMG-CoA Reductase Inhibitor Start: take 1 tablet by mouth once daily atorvastatin (Lipitor) 20 MG tablet Take 20 mg by mouth Daily 08/12/2024 Active Budesonide / formoterol (8 sources) Corticosteroid, beta2-Adrenergic Agonist take 2 puff(s) [...] Puffs as in structed twice daily. calcitriol 0.11489 mg oral capsule (10 sources) Vitamin D3 Analog Start: 06-05-20 take 1 capsule by mouth three times weekly Calcitriol 0.25 mcg capsule Active 0.25 MCG PO 3 Times a week June 04, 2024 11:00pm cephalexin 500 mg oral capsule (7 sources) Cephalosporin Antibacterial Start: 05-15-20 take 1 capsule by mouth every twelve hours cetirizine hydrochloride 10 mg oral tablet (15 sources) Histamine-1 Receptor Antagonist Start: 06-05-20 take 1 tablet by mouth once daily [...] on above: Take 1 capsule by mo [facility] two times a day. estradiol 0.1 mg/ml vaginal cream (7 sources) Estrogen Start: 05-03-2023 Estrace 0.1 mg /g Cream See Instructions, 42.5 gm, Refill(s) 3, apply pea size amount to urethra/inner vagina 3x/week x 1 month, then 2x/week for maintainence, [facility] #[id number], 153, cm, 05/03/23 9:52:00 EDT, Height/Length [...] Active Start: 04-16-2021 take 1 tablet by mouth once da christophe Ferrous Sulfate 325 mg (65 mg iron) tablet Active 325 MG PO Daily June 04, 2024 11:00pm Start: 04-16-2021 take 1 tablet by rain three times daily at mealtime FEROSUL 325 mg (65 mg iron) tablet Take 1 tablet by mouth three times daily with meals. 04/16/2021 Active Comment on above: Take 1 tablet by rain three times daily with meals. fluticasone propionate 0.05 mg/actuat metered dose nasal spray (16 sources) Corticosteroid Start: 09-04-2024 Fluticasone Propionate 50 mcg/actuation spray,suspension Active INTRANASAL as needed September 04, 2024 11:18am Start: 06-05-2024 End: 09-04-2024 take 2 spray(s) nasal route once daily [...] 01/13/2024 Active lisinopril 10 mg oral tablet (7 sources) Angiotensin Converting Enzyme Inhibitor take 1 tablet by mouth in the morning lisinopriL (PRINIVIL,ZESTRIL) 10 mg tablet Take 1 tablet (10 mg total) by mouth in the morning. Active metFORMIN hydrochloride 1000 mg oral tablet (7 sources) Biguanide take 1 tablet by mouth in the morning, then take 1 tablet by mouth at mealtime metFORMIN (GLUCOPHAGE) 1000 mg tablet Take 1 tablet (1,000 mg total) by mouth in the morning and 1 tablet (1,000 mg total) in the evening. Take with meals. Active 24 hr metoprolol succinate 50 mg extended release oral tablet (20 sources) beta-Adrenergic Rainer Start: 09-04-2024 End: 09-04-2024 take 1 tablet by mouth every twenty-four hours Metoprolol Succinate 50 mg tablet extended release 24 hr Active 50 MG PO September 04, 2024 11:28am Start: 06-24-2024 take 1 tablet by arin th once daily metoprolol succinate XL (Toprol-XL) 50 [...] Start: 12-20-2022 take 1 tablet by rain every twenty-four hours in the morning metoprolol succinate XL (TOPROL XL) 50 mg 24 hr tablet Take 1 tablet (50 mg total) by mouth in the morning. 12/20/2022 Active Start: 12-20-2022 take 1 tablet by rain every twenty-four hours in the morning metoprolol [...] day(s), # 30 tab(s), Refills(s) 6, Pharmacy: [facility] #[id number], 153, cm, 09/21/22 8:48:00 EST, Height/Length Dosing, 52.5, kg, 09/21/22 8:48:00 EST, Weight Dosing Start Date: 09/21/22 Stop Date: 04/19/23 Status: Ordered nitroglycerin 0.4 mg sublingual tablet (4 sources) Nitrate Vasodilator Start: 08-26-2024 nitroglycerin (Nitrostat) 0.[address] 0.4 mg under the tongue every 5 (five) minutes if needed for chest pain 08/26/2024 Active ondansetron 4 mg disintegrating oral tablet (11 sources) Serotonin-3 Receptor Antagonist Start: 06-05-2024 take 1 tablet by mouth every eight hours as needed Ondansetron 4 mg tablet,disintegrat ing Active 4 MG PO Every 8 hours as needed June 04, 2024 11:00pm Start: 05-08-2024 End: 05-15-2024 take 1 tablet [...] day(s), # 30 tab(s), Refills(s) 6, Pharmacy: [facility] #[id number], 153, cm, 09/13/22 13:38:00 EST, Height/Length Dosing, 52.5, kg, 09/13/22 13:38:00 EST, Weight Dosing Start Date: 09/13/22 Stop Date: 04/11/23 Status: Ordered potassium chloride 10 meq extended release oral capsule (12 sources) Start: 09-08-2022 potassium chlo ride 10 mEq Cap-ER Refills(s) 0 Start Date: 09/08/22 Status: Ordered pregabalin 150 mg oral capsule (20 sources) Start: 09-04-2024 take 1 capsule by mouth every eight hours Pregabalin 150 mg capsule Active 150 MG PO Every 8 hours September 04, 2024 11:19am Start: 07-26-2024 pregabalin (LY PRIYANK) 150 mg [...] capsule 1 06/21/2024 07/15/2024 Discontinued (Reorder) Start: 11-10-2023 pregabalin (LY PRIYANK) 150 mg [...] for 30 days. 09/04/2023 Active Start: 01-01-2021 End: 09-04-2024 take 1 capsule by mouth three times daily Pregabalin 150 mg capsule Discontinued 150 MG PO Three times daily June 04, 2024 11:00pm September 04, 2024 11:22am Comment on above: Take 150 mg by mouth three times daily. Take 1 capsule by [facility] two times a day for 30 days. 1000 ml sodium chloride 9 mg/ml injection (1 source) Start: End: 0.9 % sodium chloride (NACL 0.9%) infusion Indications: Other hydronephrosis Administer at rate defined per CT contrast administration specifications. To be provided with radiology test. 150 mL 0 01/12/2024 01/12/2024 Active trospium chloride 20 mg oral tablet (20 sources) Cholinergic Muscarinic Antagonist Start: take 1 [...] 1,000 mcg by mo uth once daily. Completed/Discontinued Medications Medication Drug Class(es) Dates Sig (Normalized) Sig (Original) amLODIPine 5 mg oral tablet (20 sources) Dihydropyridine Calcium Channel Rainer Start: 08-27-2024 End: 09-26-2024 take 1 mg by mouth once Amlodipine 5 mg tablet Discontinued MG PO Once September 04, 2024 12:00am September 04, 2024 11:28am Start: 01-17-2024 End: 08-27-2024 take 1 tablet by mouth once daily amLODIPine (Norvasc) 10 MG tablet Indications: Primary hypertension (CMS/HCC) Take 1 tablet (10 mg) by mouth Daily 30 tablet 2 06/11/2024 08/27/2024 Discontinued (Therapy completed) Start: 09-08-2022 take 1 tablet by rain th once daily amLODIPine (NORVASC) 5 mg tablet Take 5 mg by mouth once daily. 09/08/2022 Active Continuous Blood Gluc Receiv er (Dexcom G6 dry end operator) device (3 sources) Start: 12-30-2022 End: 04-16-2024 Continuous Blood Gluc Receiv er (Dexcom G6 dry end operator) device Inject 1 Device under the skin in the morning. 12/30/2022 04/16/2024 Discontinued (Therapy completed) Start: 12-30-2022 Continuous Blo od Gluc Forensic Structural Engineer (Dexcom G6 dry end operator) device Inject 1 Device under the skin [...] 1 (one) time each day 12/30/2022 Active DULoxetine 20 mg delayed release oral capsule (7 sources) Serotonin and Norepinephrine Reuptake Inhibitor Start: 06-11-2024 End: 08-27-2024 take 1 capsule by mouth once daily DULoxetine (Cymbalta) [address] capsule Indications: Type 2 diabetes mellitus with diabetic neuropathy, unspecified whether longterm insulin use ([facility]) Take 1 capsule (20 mg) by mouth Daily Do not crush or chew. 30 capsule 1 06/11/2024 08/27/2024 Discontinued (Therapy completed) phenazopyridine hydrochloride 200 mg delayed release oral [...] [Mild intermittent asthma] Onset: 11-13-2008 Resolved: 06-24-2024 3 Chronic Blindness and vision defects (16 sources) Visual impairment; Translations: [Unspecified visual loss] Onset: 10-11-2023 10-11-2023 Chronic Cancer of cervix (20 sources) Malignant tumor of cervix; Translations: [Malignant neoplasm of cervix uteri, unspecified] Onset: 10-11-2023 04-16-2024 Chronic Cardiac dysrhythmias (16 sources) Supraventricular tachycardia; Translations: [Supraventricular tachycardia] Onset: [...] Chronic Coronary atherosclerosis and other heart disease (16 sources) Old myocardial infarction; Translations: [Old myocardial infarction] Onset: 06-15-2022 10-11-2023 Chronic Deficiency and other anemia (20 sources) Iron deficiency anemia; Translations: [Iron deficiency anemia, unspecified] Onset: 11-15-2021 09-08-2022 Episodic Deficiency and other anemia (1 source) Anemia, unspecified Episodic Deficiency and other anemia (1 source) Iron deficiency anemia, unspecified; Translations: [Iron deficiency anemia, unspecified] 09-04-2024 Episodic Diabetes mellitus with complications (20 sources) [...] [Essential (primary) hypertension] Onset: 06-15-2022 09-08-2022 Chronic Fluid and electrolyte disorders (20 sources) Hyperkalemia; Translations: [Hyperkalemia] Onset: 01-17-2021 Resolved: 09-04-2023 09-08-2022 Episodic Fracture of lower limb (11 sources) Fracture of unspecified metatarsal bone(s), left foot, subsequent encounter for fracture with malunion; Translations: [Displaced fracture of second metatarsal bone, left foot, subsequent encounter for fracture with routine healing] Onset: 08-05-2022 Episodic Genitourinary symptoms and ill-defined conditions (20 sources) Mixed incontinence; Translations: [Incontinence] Onset: 09-13-2022 Resolved: 12-21-2023 Chronic Headache; including migraine (16 sources) Migraine; Translations: [Migraine, unspecified, not intractable, without status migrainosus] Onset: 09-06-2011 10-11-2023 Chronic Heart valve disorders (20 sources) Rheumatic mitral valve disease, unspecified; Translations: [Nonrheumatic mitral (valve) prolapse] Onset: 03-20-2008 Resolved: 06-24-2024 06-06-2023 Chronic Hypertension with complications and secondary hypertension (13 sources) Hypertensive heart disease with heart failure; Translations: [Hypertensive renal disease] Onset: 08-09-2022 06-03-2024 Chronic Immunity disorders (4 sources) Secondary immune deficiency disorder; Translations: [Immunodeficiency due to conditions classified elsewhere] Onset: 08-27-2024 08-27-2024 Chronic Infective arthritis and osteomyelitis (except that caused by tuberculosis or sexually transmitted disease) (17 sources) Other acute osteomyelitis, left ankle and foot; Translations: [Acute osteomyelitis of ankle and/or foot] Onset: 06-15-2022 10-11-2023 Chronic Nonspecific chest pain (11 sources) Chest pain, unspecified; Translations: [Chest pain] Onset: 12-15-2022 Episodic Nutritional deficiencies (20 sources) Deficiency of macronutrients; Translations: [Unspecified severe protein-calorie malnutrition] Onset: 11-12-2009 01-21-2021 Chronic Nutritional deficiencies (13 sources) Deficiency of other specified B group vitamins; Translations: [Cobalamin deficiency] Onset: 06-11-2024 Episodic Open wounds of extremities (20 sources) Complete traumatic amputation of left great toe, initial encounter; Translations: [Traumatic amputation of toe(s) (complete) (partial), without mention of complication] Onset: 06-15-2022 Resolved: 06-24-2024 10-11-2023 Chronic Osteoporosis (17 sources) Age-related osteoporosis without current pathological fracture; Translations: [Osteoporosis] Onset: 12-31-2022 10-11-2023 Chronic Other aftercare (20 sources) Long-term current use of insulin; Translations: [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] Onset: 08-27-2024 08-27-2024 Episodic Other circulatory disease (1 source) Other disorders of arteries, 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; Translations: [OTH D/O ART ARTRIOL CAP DZ CLSS ELS] Onset: 09-13-2022 Chronic Other connective tissue disease (5 sources) Pain in left foot; Translations: [PAIN IN LEFT FOOT] Onset: 06-15-2022 Episodic Other diseases of bladder and urethra (2 sources) Neuromuscular dysfunction of bladder, unspecified; Translations: [Neurogenic bladder NOS] Onset: 07-25-2022 09-04-2024 Chronic Other diseases of bladder and urethra [...] Episodic Other diseases of kidney and ureters (8 sources) Cyst of kidney, acquired; Translations: [Cystic kidney disease, unspecified] Onset: 09-15-2022 Episodic Other diseases of kidney and ureters (1 source) Acquired renal cystic disease; Translations: [Cyst of kidney, acquired] 07-05-2023 Episodic Other diseases of kidney and ureters (3 sources) Hydronephrosis; Translations: [Other hydronephrosis] 01-12-2024 Episodic Other endocrine disorders (20 sources) Hyperparathyroidism; Translations: [Hyperparathyroidism, unspecified] Onset: 03-13-2024 06-03-2024 Chronic Other endocrine disorders (2 sources) Hyperparathyroidism, unspecified; Translations: [Hyperparathyroidism, unspecified] 06-05-2024 Chronic Other liver diseases (16 sources) Steatosis of liver; Translations: [Fatty (change [...] Onset: 03-15-2024 Chronic Other nervous system disorders (18 sources) Complex regional pain syndrome; Translations: [Complex regional pain syndrome I, unspecified] Onset: 10-11-2023 10-11-2023 Chronic Other non-traumatic joint disorders (16 sources) Charcot's joint of foot; Translations: [Charcot's joint, left ankle and foot] Onset: 10-11-2023 10-11-2023 Chronic Other nutritional; endocrine; and metabolic disorders (1 source) Hypomagnesemia; Translations: [Hypomagnesemia] 09-04-2024 Chronic Other nutritional; endocrine; and metabolic disorders (1 source) Hypomagnesemia; Translations: [Disorders of magnesium metabolism] 09-04-2024 Chronic Other nutritional; endocrine; and metabolic disorders (1 source) Body mass index (BMI) 25.0-25.9, adult Episodic Other skin disorders (12 sources) Lesion of skin of face; Translations: [Disorder of the skin and subcutaneous tissue, unspecified] Onset: 06-11-2024 06-11-2024 Episodic Other upper respiratory infections (16 sources) Chronic sinusitis; Translations: [Chronic sinusitis, unspecified] Onset: 11-30-2010 Resolved: 07-22-2024 10-11-2023 Chronic Peripheral and visceral atherosclerosis (16 sources) Atherosclerosis of aorta; Translations: [Atherosclerosis of aorta] Onset: 03-13-2024 03-13-2024 Chronic Poisoning by other medications and drugs (2 sources) Poisoning by vitamin D; Translations: [Poisoning by vitamins, accidental (unintentional), initial encounter] 09-04-2024 Episodic Residual codes; unclassified (1 source) Asymptomatic [...] adult Episodic Rheumatoid arthritis and related disease (20 sources) Rheumatoid arthritis, unspecified; Translations: [Rheumatoid arthritis] [...] source) Extremity Pain Onset: 12-13-2023 Viral infection (16 sources) Herpetic vulvovaginitis; 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] Onset: [...] unspecified] Onset: 08-31-2023 Resolved: 09-04-2023 09-04-2023 Episodic Fracture of upper limb (2 sources) [...] [Weakness] Onset: 01-17-2021 01-18-2021 Episodic Mood disorders (16 sources) Mood disorders Onset: 10-11-2023 10-11-2023 Nausea and vomiting (11 sources) Nausea and vomiting; Translations: [Nausea with [...] block assembler (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; Translations: [CARE HOME CURRENT USE OF INSULIN] Onset: 08-09-2022 Episodic Other aftercare (1 source) 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; Translations: [OTH DIRECT SALES CONSULTANT CURRENT DRUG THERAPY] Onset: 08-09-2022 Episodic Other aftercare (3 sources) Admission statuses; Translations: [terminal block assembler (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 of opiate analgesic] Onset: 03-15-2022 03-15-2022 Episodic Other aftercare (2 sources) terminal block assembler (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 of opiate analgesic; Translations: [terminal block assembler (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 of opiate analgesic] Onset: 03-15-2022 Episodic Other aftercare (5 sources) Patient encounter status; Translations: [correction (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 of opiate analgesic] Onset: 03-15-2022 03-15-2022 Episodic Other bone disease and musculoskeletal deformities (8 sources) Amputee; Translations: [Acquired absence of limb, [...] Onset: 07-25-2022 Episodic Other lower respiratory disease (18 sources) Chronic cough; Translations: [Chronic cough] Onset: [...] Onset: 07-25-2022 Episodic Other upper respiratory disease (16 sources) Deviated nasal septum; Translations: [Deviated nasal septum] Onset: 11-30-2010 10-11-2023 Episodic Residual codes; unclassified (1 source) Acquired absence of both cervix and uterus; Translations: [ACQUIRED ABSENCE BOTH CERVIX AND UTERUS] Onset: 08-09-2022 Episodic Residual codes; unclassified (1 source) Acquired absence of other specified parts of digestive tract; Translations: [ACQ ABSENCE OTH PART DIGESTV TRACT] Onset: 07-25-2022 Episodic Residual codes; unclassified (16 sources) Postmenopausal state; Translations: [Asymptomatic menopausal state] [...] Test Name Value Interpretation Reference Range Facility Erythrocyte distribution wid th Auto (RBC) [Ratio]on 08-28-2024 Erythrocyte distribution width (RBC) [Ratio] Erythrocyte distribution width [Ratio] by Automated count 11.0-15.0 [facility] Estimated glomerular filtrat ion rate (GFR) non- Americanon 08-28-2024 GFR/1.73 sq M.predicted among non-blacks MDRD (S/P/Bld) [Vol rate/Area] Estimated glomerular filtration rate (GFR) non- Low >=60 mL/min/1.73m 2 [facility] CBC WITH PLATELET NO DI FFERENTIALon 08-28-2024 Erythrocyte distribution width (RBC) [Ratio] 13.6 % 11.0 - 15.0 % [facility] Hematocrit (Bld) [Volume fraction] 30.8 % Low 36.0 - 48.0 % [facility] Hemoglobin (Bld) [Mass/Vol] 9.8 g/dL Low 12.0 - 16.0 g/dL [facility] Interpretation and review of laboratory results Abnormal [facility] MCH (RBC) [Entitic mass] 26.3 pg Low 26.7 - 34.[address] [facility] MCHC (RBC) [Mass/Vol] 31.8 g/dL 29.9 - 35.2 g/dL [facility] MCV (RBC) [Entitic vol] 82.6 fL 81.0 - 99.[address] [facility] Platelet mean volume (Bld) [Entitic vol] 11.3 fL 9.5 - 13.[address] [facility] TBH PLT 152 [facility] RBC 3.73 Low [facility] WBC 8.5 [facility] Hematocrit Auto (Bld) [Volum e fraction]on 08-28-2024 Hematocrit (Bld) [Volume fraction] Hematocrit [Volume Fraction] of Blood by Automated count Low 36.0-48.0 [facility] Hemoglobin [Mass/volume] in Bloodon 08-28-2024 Hemoglobin (Bld) [Mass/Vol] Hemoglobin [Mass/volume] in Blood Low 12.0-16.0 [facility] Iron binding capacity [Mass/ volume] in Serum or Plasmaon 08-28-2024 Iron binding capacity [Mass/Vol] Iron binding capacity [Mass/volume] in Serum or Plasma 250.0-450.0 [facility] Iron saturation [Mass Fracti on] in Serum or Plasmaon 08-28-2024 Iron saturation [Mass fraction] Iron saturation [Mass Fraction] in Serum or Plasma [facility] Laboratory - Chemistry and C hemistry - challengeon 08-28-2024 Albumin [Mass/Vol] 2.8 g/dL Low 3.4-5.0 [facility] Calcium [Mass/Vol] 8.4 mg/dL Low 8.5-10.1 [facility] Chloride [Moles/Vol] 104 mmol/L 98-107 [facility] CO2 [Moles/Vol] 20.9 mmol/L Low 21.0-32.0 [facility] Cobalamin (Vitamin B12) [Mass/Vol] 302 pg/mL 232-1245 [facility] Comment on above: Performed at: [address] [id number] Director: Chris Luna PhD, Phone: [phone] Creatinine [Mass/Vol] 2.71 mg/dL High 0.55-1.02 [facility] Ferritin [Mass/Vol] 403.0 ng/mL High 8.0-252.0 [facility] GFR/1.73 sq M.predicted MDRD (S/P/Bld) [Vol rate/Area] 21 mL/min/{1.73_m2} Low >=60 mL/min/1.73m 2 [facility] Glucose [Mass/Vol] 198 mg/dL High 74-106 [facility] Iron [Mass/Vol] 39.0 ug/dL Low 50.0-170.0 [facility] Magnesium [Mass/Vol] 1.6 mg/dL Low 1.8-2.4 [facility] Potassium [Moles/Vol] 5.8 mmol/L High 3.5-5.1 [facility] Sodium [Moles/Vol] 135 mmol/L Low 136-145 [facility] Urate [Mass/Vol] 5.5 mg/dL 2.6-6.0 [facility] Urea nitrogen [Mass/Vol] 45.0 mg/dL High 7.0-18.0 [facility] Urea nitrogen/Creatinine [Mass ratio] 16.6 mg/mg [facility] Bilirubin Ql (U) Negative NEGATIVE [facility] Glucose (U) [Mass/Vol] 100 mg/dL Abnormal NEGATIVE [facility] Ketones Ql (U) Negative NEGATIVE [facility] pH (U) 6.0 [pH] 5.0-9.0 [facility] Specific gravity (U) [Rel density] 1.010 1.005-1.025 [facility] Urobilinogen Qn (U) 0.2 {Madeleine'U}/dL 0.2-1.0 [facility] Laboratory - Specimen inform ationon 08-28-2024 Appearance (U) CLEAR CLEAR [facility] Color (U) LT. YELLOW YELLOW [facility] Laboratory - Urinalysison Leukocyte esterase Test strip Ql (U) MODERATE Abnormal NEGATIVE [facility] Nitrite Ql (U) Positive Abnormal NEGATIVE [facility] Protein (U) [Mass/Vol] 80.9 mg/dL High <=11.9 [facility] Protein Ql (U) 100 mg/dL Abnormal NEG/TRACE [facility] Leukocytes [#/volume] correc madhavi for nucleated erythrocytes in Blood by Automated counon 08-28-2024 WBC corrected for nucl RBC Auto (Bld) [#/Vol] Leukocytes [#/volume] corrected for nucleated erythrocytes in Blood by Automated coun 4.0-11.0 [facility] MCH Auto (RBC) [Entitic mass ]on 08-28-2024 MCH (RBC) [Entitic mass] MCH [Entitic mass] by Automated count Low 26.7-34.0 [facility] MCHC Auto (RBC) [Mass/Vol]on 08-28-2024 MCHC (RBC) [Mass/Vol] MCHC [Mass/volume] by Automated count 29.9-35.2 [facility] MCV Auto (RBC) [Entitic vol] on 08-28-2024 MCV (RBC) [Entitic vol] MCV [Entitic volume] by Automated count 81.0-99.0 [facility] Microalbumin [Mass/volume] i n Urineon 08-28-2024 Albumin DL <= 20 mg/L (U) [Mass/Vol] Microalbumin [Mass/volume] in Urine <=30.0 [facility] No Panel Informationon 08-28 25-Hydroxy Vitamin D Total 8.5 ng/mL [facility] Comment on above: <20 ng/mL Vit D defi cient20-<30 ng/mL Vit D sdzxsourlugs38-528 ng/mL Vit D sufficient>100 ng/mL Potential Toxicity Folate 14.20 ng/mL 8.60-58.90 [facility] Parathyroid Hormone (Intact) 103 pg/mL Abnormal 15-65 [facility] Comment on above: Performed at: [employer] [address] [id number] Director: Chris Luna PhD, Phone: [phone] Phosphorus Level 5.5 mg/dL High 2.6-4.7 [facility] Urine Occult Blood TRACE-I NEGATIVE [facility] Urine Random Creatinine 18.25 mg/dL Low 20.00-300.00 [facility] Platelet mean volume Auto (B ld) [Entitic vol]on 08-28-2024 Platelet mean volume (Bld) [Entitic vol] Platelet mean volume [Entitic volume] in Blood by Automated count 9.5-13.5 [facility] Platelets Auto (Bld) [#/Vol] on 08-28-2024 Platelets (Bld) [#/Vol] Platelets [#/volume] in Blood by Automated count 150-450 [facility] RBC Auto (Bld) [#/Vol]on RBC (Bld) [#/Vol] Erythrocytes [#/volu me] in Blood by Automated count Low 4.20-5.40 [facility] Serum or plasma anion gap de terminationon 08-28-2024 Anion gap [Moles/Vol] Serum or plasma anion gap determination [facility] Urine microalbumin/creatinin e mass ratioon 08-28-2024 Albumin/Creatinine DL <= 20 mg/L (U) [Mass ratio] Urine microalbumin/creatinine mass ratio High 0.0-29.9 [facility] Comment on above: NO MICROALBUMINURIA 0-29 MG/GCLINICAL MICROALBUMINURIA 30-300 MG/GMACROALBUMINURIA >300 MG/G Urine protein/creatinine rat ioon 08-28-2024 Protein/Creatinine (U) [Ratio] Urine protein/creatinine ratio [facility] MLR HEMOGLOBIN A1Con 024 Glucose [Mass/Vol] 243 mg/dL [facility] HbA1c (Bld) [Mass fraction] 10.1 % High 4.5 - 6.2 % [facility] Comment on above: ADA RECOMMENDED LIMI T 4.0 - 6.0 ADA THERAPEUTIC TARGET < 7.0 ACTION SUGGESTED > 7.0 Interpretation and review of laboratory results Abnormal [facility] 36on 07-05-2024 36 Received C9 approval . Pt called and scheduled. [employer] notified. 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 LVM to call office back to schedule. Please advise pt to bring disc with imaging on it to her appt or advise expert medical writer where imaging had been completed. Thank You [facility] Telephoneon 05-03-2024 Telephone [id number] Fernando Wheeler 1960 F Date Provider Department Center 05/03/2024 [id number], H[facility] SURG Second Fl No family history on file [facility] BLOOD CULTURE 1on 05-01-2024 BLOOD CULTURE 1 Blood Culture 1 NG5D NO GROWTH AT 5 DAYS.^NO GROWTH AT [address] [facility] BLOOD CULTURE 2on 05-01-2024 BLOOD CULTURE 2 Blood Culture 2 NG5D NO GROWTH AT 5 DAYS.^NO GROWTH AT [address] [facility] CNOVon 05-01-2024 CNOV Office Visit (UROLMN ) AISLINN WHEELER ([id number]) 1960 F Date Time Provider Department 05/01/24 10:00 AM JUANITO BARNARD During your visit today, we recorded the following information about you: Pulse Blood pressure 74/minute 173/96 Juanito Barnard MD 05/01/2024 12:12 PM Signed [facility] UROLOGY NEW PATIENT [...] BMI (more content not included)... Normal [facility] No Panel Informationon 05-01 [facility] URINALYSIS, REFLEX MICROSCOP ICon 05-01-2024 Bilirubin Ql (U) Negative Negative [facility] Clarity (Unsp spec) Clear Clear [facility] Color (U) Yellow Yellow [facility] Glucose Test strip (U) [Mass/Vol] 1+ Abnormal Negative [facility] Hemoglobin Ql (U) Negative Negative [facility] Interpretation and review of laboratory results Abnormal [facility] Ketones Ql (U) Negative Negative [facility] Leukocyte esterase Test strip Ql (U) Trace Abnormal Negative [facility] Nitrite Ql (U) Negative Negative [facility] pH (U) 5.5 [pH] NINF - 8.5 [facility] Protein (U) [Mass/Vol] 2+ Abnormal Negative [facility] Specific gravity (U) [Rel density] 1.010 1.005 - 1.030 [facility] Urobilinogen Ql (U) 0.2 EU/dL 0.2-1.0 EU/dL [facility] This test was cecilia prasad and its performance characteristics determined by [facility]'s [facility] Pathology and Laboratory Medicine [place] ([facility]). It has not been cleared or approved by the FDA. [facility] is regulated under CLIA as qualified to perform high-complexity testing. This test is used for clinical purposes. It should not be regarded as investigational or for research. [facility] Bilirubin Ql (U) Negative Normal Negative [facility] Comment on above: Order Comment: Speci men Type: URINE SPECIMENOrdering Facility: [facility] Address: [address] [place] [address] Performed By: #### L [id number] ####[facility] LABIA [id number] [place] [address] [place] Clarity (Unsp spec) Clear Normal Clear [facility] Comment on above: Order Comment: Speci men Type: URINE SPECIMENOrdering Facility: [facility] Address: [address] [place] [address] Performed By: #### L [id number] ####[facility] LABIA [id number] [place] [address] [place] Color (U) Yellow Normal Yellow [facility] Comment on above: Order Comment: Speci men Type: URINE SPECIMENOrdering Facility: [facility] Address: [address] [place] [address] Performed By: #### L [id number] ####[facility] LABCLIA [id number] [place] [address] [place] Glucose Test strip (U) [Mass/Vol] 1+ Abnormal Negative [facility] Comment on above: Order Comment: Speci men Type: URINE SPECIMENOrdering Facility: [facility] Address: [address] [place] [address] Performed By: #### L [id number] ####[facility] LABCLIA [id number] [place] [address] [place] Hemoglobin Ql (U) Negative Normal Negative [facility] Comment on above: Order Comment: Speci men Type: URINE SPECIMENOrdering Facility: [facility] Address: [address] [place] [address] Performed By: #### L [id number] ####[facility] LABCLIA [id number] [place] [address] [place] Ketones Ql (U) Negative Normal Negative [facility] Comment on above: Order Comment: Speci men Type: URINE SPECIMENOrdering Facility: [facility] Address: [address] [place] [address] Performed By: #### L [id number] ####[facility] LABCLIA [id number] [place] [address] [place] Leukocyte esterase Test strip Ql (U) Trace Abnormal Negative [facility] Comment on above: Order Comment: Speci men Type: URINE SPECIMENOrdering Facility: [facility] Address: [address] [place] [address] Performed By: #### L [id number] ####[facility] LABCLIA [id number] [place] [address] [place] Nitrite Ql (U) Negative Normal Negative [facility] Comment on above: Order Comment: Speci men Type: URINE SPECIMENOrdering Facility: [facility] Address: [address] [place] [address] Performed By: #### L [id number] ####[facility] LABIA [id number] [place] [address] [place] pH (U) 5.5 [pH] Normal <8.5 [facility] Comment on above: Order Comment: Speci men Type: URINE SPECIMENOrdering Facility: [facility] Address: [address] [place] [address] Performed By: #### L [id number] ####[facility]UN[facility] [id number] [place] [address] [place] Protein (U) [Mass/Vol] 2+ Abnormal Negative [facility] Comment on above: Order Comment: Speci men Type: URINE SPECIMENOrdering Facility: [facility] Address: [address] [place] [address] Performed By: #### L [id number] ####[facility] LABIA [id number] [place] [address] [place] Specific gravity (U) [Rel density] 1.010 Normal 1.005-1.030 [facility] Comment on above: Order Comment: Speci men Type: URINE SPECIMENOrdering Facility: [facility] Address: [address] [place] [address] Performed By: #### L [id number] ####[facility] LABIA [id number] [place] [address] [place] Urobilinogen Ql (U) 0.2 EU/dL Normal 0.2-1.0 EU/dL [facility] Comment on above: Order Comment: Speci men Type: URINE SPECIMENOrdering Facility: [facility] Address: [address] [place] [address] Performed By: #### L [id number] ####[facility] LABCLIA [id number] [place] [id number] [place] URINE CULTURE, ROUTINEon [...] Bacteria identified Cx Nom (U) Performed at: [facility] Bacteria identified Cx Nom (U) [address], [place] [id number] [facility] Bacteria identified Cx Nom (U) [employer]: Chris Luna PhD, Phone: [phone] [facility] Drugs of abuse panel Screen (U)on 04-24-2024 Control Substance Panel, Urine SEE COMMENTS 04/28/2024 10:47 AM [facility] Comment on above: Result Comment: NOTE Test Result Flag Unit RefValue - Controlled Substance Monitoring, U List Patient's Current HYDROCODONE Medications ADDITIONAL INFORMATION Accuracy and completeness of declared medications on reports solely dependent on information submitted by client. Creatinine, U 51.0 mg/dL Specific [place] 1.010 pH 5.4 Oxidants Negative -- REFERENCE [...] Not Detected ng/mL Cutoff: 25 Tylenol 3 Jokemni-4-aoao- Not Detected ng/mL Cutoff: 100 glucuronide Metabolite of codeine Morphine Not Detected ng/mL Cutoff: 25 Marium Leon, MS Contin; Also a minor metabolite (10%) of codeine and can be seen in low concentrations (<2,000 ng/mL) with poppy seed ingestion. Fhcgnzdc-7-nogu- Not Detected ng/mL Cutoff: 100 glucuronide Metabolite of morphine 6-monoacetylmorphine Not Detected ng/mL Cutoff: 25 Metabolite of heroin Hydrocodone Present A ng/mL Cutoff: 25 Lortab, Ava, Vicodin; Also a very minor metabolite of codeine and impurity (<1%) of oxycodone. Norhydrocodone Present A ng/mL Cutoff: 25 Metabolite of hydrocodone Dihydrocodeine Present A ng/mL Cutoff: 25 Metabolite of hydrocodone Hydromorphone Not Detected ng/mL Cutoff: 25 Dilaudid, Exalgo; Also a metabolite of hydrocodone and a minor (<5%) metabolite of morphine. Tshdafrvggruy-4-hplo- Present A ng/mL Cutoff: 100 glucuronide Metabolite of hydromorphone Oxycodone Not Detected ng/mL Cutoff: 25 Endocet, Percocet, Oxycontin Noroxycodone Not Detected ng/mL Cutoff: 25 Metabolite of oxycodone Oxymorphone Not Detected ng/mL Cutoff: 25 Numorphan, Opana; Also a metabolite of oxycodone. Xiqhhvlhrwo-5-ywck- Not Detected ng/mL Cutoff: 100 glucuronide Metabolite [...] Naloxone Not Detected ng/mL Cutoff: 25 Narcan Mmmchidt-0-evkh- Not Detected ng/mL Cutoff: 100 glucuronide Metabolite [...] of its metabolites (norhydrocodone and dihydrocodeine), and gndtvhmgigkvw-5-fxyk-glucuronide (metabolite of hydromorphone). Suspect use of hydrocodone and/or hydromorphone within the past three days. Trace amounts of hydrocodone can also be found as an impurity in hydromorphone. ADDITIONAL INFORMATION This test was developed and its performance characteristics determined by [facility] in a manner consistent with CLIA requirements. [...] 03-29-2024 CNNURSE Nurse Visit (UROSMN) AISLINN WHEELER ([id number]) 1960 F Date Time Provider Department 03/29/24 3:00 PM [facility] UROSMN During your visit today, we recorded the following information about you: Lorie Burrows, REY 03/29/2024 2:18 PM Addendum [facility] [...] allergy: No Females- Is patient : No Community Development Manager offered:Patient declines B/O UA: Yes, Negative [...] Patient position - Sitting Radiologic Findings: A shipwright radiograph was obtained. The bony and soft tissue structures are within normal. 147 ccs contrast were used to fill the bladder. The bladder outline is irregular/trabeculated and abnormal shaped appearing. There is no ureteral reflux. During the voiding phase there is abnormal bladder neck opening and urethra is not visualized. Bladder emptying is not visualized Read (more content not included)... Normal [facility] CNOVon 03-26-2024 CNOV Office Visit (UROLAV ) AISLINN WHEELER ([id number]) 1960 F Date Time Provider Department 03/26/24 [...] Nolen MD 03/26/2024 11:54 AM Signed [facility] [...] her bladder. Had bladder botox injections at [facility] about 3 mo ago with no [...] Assessed 03/26/2024 PHYSICAL EXAM: Patient declined a production hand General: No acute distress, well appearing : [...] INFOR (more content not included)... Normal [facility] UA DIP, URINE (POC)on 2023 BILIRUBIN UA (POCT) Negative Negative [facility] CLARITY UA (POCT) Cloudy [facility] COLOR UA (POCT) Light yellow [facility] GLUCOSE UA (POCT) Negative Negative mg/dL [facility] Hemoglobin Ql (U) Trace-intact Abnormal Negative [facility] Interpretation and review of laboratory results Abnormal [facility] KETONE UA (POCT) Negative Negative mg/dL [facility] LEUKOCYTES UA (POCT) Moderate Abnormal Negative [facility] NITRITE UA (POCT) Negative Negative [facility] PH UA (POCT) 6.0 4.5 - 8.0 [facility] Protein Ql (U) 100 mg/dL Abnormal Negative [facility] SPECIFIC GRAVITY UA (POCT) 1.020 1.005 - 1.030 [facility] UROBILINOGEN UA (POCT) 0.2 Normal E.U./dL [facility] Location:Count Includes [facility], [address] [facility], [place], [place], [address] [facility] POINT OF CARE [facility] Glucose Glucometer (BldC) [M ass/Vol]on 03-15-2024 Glucose [Mass/Vol] 164 mg/dL High 65-99 [facility] [facility] CNPN Telephone (URFHR) AISLINN WHEELER ([id number]) 1960 F Date Time Provider Department 02/26/24 [...] Encounter Status:Closed by FLAV[facility] (URR[facility] AISLINN WHEELER ([id number]) 1960 F Date Time Provider Department 02/12/24 [facility] During your visit today, we recorded [...] Encounter Status:Closed by VONNIE WILDER on 02/12/24 [facility] CT Kidney WO and W contrast IVOrdered By: Ccf Provider on 02-02-2024 Interpretation and review of laboratory results Abnormal [facility] Radiology Result ACTIONABLE Abnormal [facility] Comment on above: This report contains an [...] contact your provider for the next steps. [facility] CT Kidney WO and W contrast [...] be communicated with the ordering provider via [employer] staff message or phone message by [employer] Support [employer] within 2 business days of report finalization. --END OF FINDING-- Transcribe Date/Time: Feb 02 2024 9:09A Dictated by: AYZA ADAMS MD This examination was interpreted and the report reviewed and electronically signed by: AYAZ ADAMS MD on Feb 02 2024 9:42AM EST Thank you for allowing us to participate in the care of your patient. Should there be any questions regarding this interpretation, please call [phone]. If you are unable to reach us at the number above, please feel free to contact [facility] eRadiology at [phone]. DIVISION OF RADIOLOGY * * *Final Report* * * DATE OF EXAM: Feb 01 2024 3:26PM [facility] 0560 - CT UROGRAM WO/W [...] 01/20/[address] scan dated 01/17/21 [facility] RESULT: Kidneys and urinary tract: Right: There [...] No additional findings. DIVISION OF RADIOLOGY Provider, [facility] - 02/02/2024 * * *Final Report* * * DATE OF EXAM: Feb 01 2024 3:26PM [facility] 0560 - CT UROGRAM WO/W [...] be communicated with the ordering provider via [employer] staff message or phone message by Imaging [...] any questions regarding this interpretation, please call [phone]. If you are unable to reach us at the number above, please feel free to contact [facility] eRadiology at [phone]. [facility] CREATININE BLDOrdered By: James Dietrichy on 02-01-2024 Creatinine [Mass/Vol] 1.78 mg/dL High 0.58 - 0.96 mg/dL [facility] GFR/1.73 sq M.predicted among non-blacks MDRD (S/P/Bld) [Vol rate/Area] 31 mL/min/{1.73_m2} Low - PINF [facility] Comment on above: Estimated Glomerular Filtration [...] Interpretation and review of laboratory results Abnormal [facility] CREATININE BLDon 02-01-2024 Creatinine [Mass/Vol] 1.78 mg/dL High 0.58-0.96 [facility] Comment on above: Order Comment: Speci men Type: BLOOD SPECIMENOrdering Facility: [facility] Address: [address] [place] [address] Performed By: #### C RET1 ####[facility] LABCLIA [id number] [place] [address] Creatinine and Glomerular filtration rate.predicted panel (S/P/Bld) 31 mL/min/1.73m??? Low >=60 [facility] Comment on above: Order Comment: Speci men Type: BLOOD SPECIMENOrdering Facility: [facility] Address: [address] [place] [address] Result Comment: Donna mated Glomerular Filtration Rate [...] actual GFR. Performed By: #### C RET1 ####[facility] LABCLIA [id number] [place] [address] CT Kidney WO and W contrast Mirna 02-01-2024 Radiology Study observation (narrative) [facility] CT UROGRAM WO/W IVCONon 01-19 CT UROGRAM WO/W IVCON * * *Final Report* * * DATE OF EXAM: Feb 01 2024 3:26PM [facility] 0560 - CT UROGRAM WO/W [...] 01/20/[address] scan dated 01/17/21 [facility] RESULT: Kidneys and urinary tract: Right: There [...] be communicated with the ordering provider via [employer] staff message or phone message by Imaging [...] any questions regarding this interpretation, please call [phone]. If you are unable to reach us at the number above, please feel free to contact [facility] at [phone]. [id number] ACTIONABLE Invalid Interpretation Code [facility] CNOVon 01-12-2024 CNOV Office Visit (URFMOB ) AISLINN WHEELER ([id number]) 1960 F Date Time Provider Department 01/12/24 1:50 PM TAURUS BALLARD URFREDDIE During your visit today, we recorded the following information about you: Pulse Blood pressure 75/minute 142/69 Taurus Ballard MD 01/12/2024 2:43 PM Signed [facility] UROLOGICAL GIG HARBOR FOLLOW-UP PATIENT HISTORY AND PHYSICAL EXAM PATIENT [...] urogram Will refer to Dr. Tamanna Ruiz APRN.MANAGER UTILIZATION MANAGEMENT Attending Note I have personally performed a [...] her ki (more content not included)... Normal [facility] UA DIP, URINE (POC)on 2023 BILIRUBIN UA (POCT) Negative Negative [facility] CLARITY UA (POCT) Clear [facility] COLOR UA (POCT) Yellow [facility] GLUCOSE UA (POCT) 100 mg/dL Abnormal Negative [facility] Hemoglobin Ql (U) Trace-intact Abnormal Negative [facility] Interpretation and review of laboratory results Abnormal [facility] KETONE UA (POCT) Negative Negative mg/dL [facility] LEUKOCYTES UA (POCT) Small Abnormal Negative [facility] NITRITE UA (POCT) Negative Negative [facility] PH UA (POCT) 5.5 4.5 - 8.0 [facility] Protein Ql (U) 100 mg/dL Abnormal Negative [facility] SPECIFIC GRAVITY UA (POCT) 1.015 1.005 - 1.030 [facility] UROBILINOGEN UA (POCT) 0.2 Normal E.U./dL [facility] Location:[facility], [address] [address], [place], [address] [place] [address] POINT OF CARE [facility] ED Note-Physicianon 10-30-19 ED Note-Physician [id number]#1.00 TIFF Normal [facility] Lab Reportson 10-30-2023 Lab Reports [id number]#1.00T IFF Normal [facility] Lab Reports [id number]#1.00T IFF Normal [facility] Urology Office/Clinic Noteon 10-26-2023 Urology Office/Clinic Note Chief Complaint S/P to Cysto with Botox HPI Staff KML pt. Here for f/u to Botox 100u done 05/22/23. R/s'd appt from 06/28/23. Previous dx: renal cyst, mixed incontinence, feeling of incomplete bladder emptying, glucosuria. Pt was referred to Dr. Ballard at [facility] for evaluation of robotic left cyst [...] Assessment/Plan 1. 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 BURKE [...] procedure. This is confusing bc review of [facility]'s op report shows completely normal events (lidocaine instilled normally, 10 injections of 2ml each) so it's unclear if pt received full 100units or not. Pt called 06/08/23 c/o worsening leakage after Botox. PVR was 174 cc (compared to 142cc prior to botox). KM recommended to start CIC 3x/day for residual, timed voids q2hr, and tight DM control. Pt was in [facility] ER 06/19 and treated for E [...] kidney measuri (more content not included)... Normal [facility] Comment on above: Result Comment: Elec tronically Signed By: HEIDY ARNOLD PA-C\.br\Date and Time Signed: 10/26/23 11:50 EST\.br\Electronically Co-Signed By: Dina Jolly\.br\Date and Time Co-Signed: 10/25/23 16:39 EST Ambulatory Visit Summaryon 0 10-25-2023 Ambulatory Visit Summary LIAMBARBARA PAEZPAMELA Pulido :1960 Visit Date:10/25/2023 Ambulatory Visit Instructions Your [...] HEIDY ARNOLD PA-C, URL When: Where: [address] [place] [address] Medications What How Much When Instructions Unchanged [...] including vitamins, herbs, eye drops, creams, and byoa-bdk-gjucdub medicines. ? Any problems you or family [...] Do no (more content not included)... Normal [facility] Patient Educationon 10-25-19 24 Patient Education [...] including vitamins, herbs, eye drops, creams, and jroh-ntk-thlcaky medicines. ? Any problems you or family [...] tells you to take them. ? Taking oihz-bkn-olcctwp medicines, vitamins, herbs, and supplements. General instructions [...] these instructions at home: Medicines ? Take xszp-rno-rqnfkix and prescription medicines only as told by [...] health ca (more content not included)... Normal [facility] Glucose Glucometer (BldC) [M ass/Vol]on 10-13-2023 Glucose [Mass/Vol] 276 mg/dL High 65-99 [facility] Glucose Glucometer (BldC) [M ass/Vol]on 09-29-2023 Glucose [Mass/Vol] 356 mg/dL High 65-99 [facility] CNPNon 09-27-2023 CNPN Telephone (FVPRAD) LIAMAISLINN ([id number]) 1960 F Date Time Provider Department 09/27/23 DREW BUCKNER FVPRAD During your visit today, we recorded the following information about you: Drew Buckner, Research Coordinator 09/27/2023 2:33 PM Signed IRB# [id number]: Vascular events in patients undergoing same-day nonCardiac surgery - [facility] PI: Mary Rojas MD, LETY, FASA. Outcomes Research Department. Anesthesia Crook. [facility]. Aislinn Pulido Liam was unavailable at the listed phone number. We will attempt to contact the patient through [employer] message. Drew Esqueda, Research Coordinator Research Coordinator Allergies As of Date: 09/27/2023 Noted Allergy Reaction LATEX 02/05/2020 2 - Rash Comments: Added based on information entered during case entry, please review and add reactions, type, and severity as needed Date Reviewed: 09/03/2023 Reviewed by: Chuck Kirk, REY - Fully Assessed Reason for Visit: Research F/U [808] Prescriptions as of 09/27/2023 - pregabalin (LYRICA) [...] Status:Closed by DREW BUCKNER on 09/27/23 [facility] 09-26-2023 CNPN Telephone (FVPRAD) AISLINN WHEELER ([id number]) 1960 F Date Time Provider Department 09/26/23 DREW BUCKNER FVPRAD During your visit today, we recorded the following information about you: Drew Buckner, Research Coordinator 09/26/2023 3:32 PM Signed IRB# [id number]: Vascular events in patients undergoing same-day nonCardiac surgery - [facility] PI: Mary Rojas MD, LETY, FASA. Outcomes Research Department. Anesthesia Crook. [facility]. Aislinn Wheeler was unavailable at the [...] Encounter Status:Closed by DREW BUCKNER on 09/26/23 [facility] CNDSon 09-04-2023 CNDS HNO ID: [id number] Author: ANTHONY BARROW MD Service: Hospital Medicine [...] Time Provider Department Center 10/06/2023 1:00 PM [facility] [place] [facility] Brittanie 10/06/2023 2:00 PM LAB [facility] [place] [facility] Brittanie 10/11/2023 1:50 PM Taurus Ballard MD [facility] ALLERGIES Allergen Reactions Latex Rash Added based [...] INSULIN SUBCUTANEO (more content not included)... Normal [facility] ALLIED HEALTHon 09-03-2023 ALLIED HEALTH HNO ID: [id number] Author: NICOL MILLIGAN RT(R) Service: Radiology Author [...] RT Michael(R) September 03, 2023 2:57 PM [facility] Basic metabolic 2000 panelon 09-03-2023 Anion gap [Moles/Vol] 10 mmol/L Normal 9-18 [facility] Comment on above: Order Comment: [place] Type: BLOOD SPECIMEN [facility]ing Facility: [facility] Address: [address] [place] [address] Performed By: #### 2 4321-2 #### [facility] CLIA [id number] [address] [place] [address] [place] Calcium [Mass/Vol] 8.8 mg/dL Normal 8.5-10.2 [facility] Comment on above: Order Comment: [place] Type: BLOOD SPECIMEN Ordering Facility: [facility] Address: [address] [place] [address] Performed By: #### 2 4321-2 #### [facility] CLIA [id number] [address] [place] [address] [place] Chloride [Moles/Vol] 103 mmol/L Normal 97-105 [facility] Comment on above: Order Comment: Speci men Type: BLOOD SPECIMEN Ordering Facility: [facility] Address: [address] [place] [address] Performed By: #### 2 4321-2 #### [facility] CLIA [id number] [address] [place] [address] [place] CO2 [Moles/Vol] 23 mmol/L Normal 22-30 [facility] Comment on above: Order Comment: Speci men Type: BLOOD SPECIMEN Ordering Facility: [facility] Address: [address] [place] [address] Performed By: #### 2 4321-2 #### [facility] CLIA [id number] [address] [place] [address] [place] Creatinine [Mass/Vol] 1.29 mg/dL High 0.58-0.96 [facility] Comment on above: Order Comment: Speci men Type: BLOOD SPECIMEN Ordering Facility: [facility] Address: [address] [place] [address] Performed By: #### 2 4321-2 #### [facility] CLIA [id number] [address] [place] [address] [place] Creatinine and Glomerular filtration rate.predicted panel (S/P/Bld) 46 mL/min/1.73m??? Low >=60 [facility] Comment on above: Order Comment: Speci men Type: BLOOD SPECIMEN Ordering Facility: [facility] Address: [address] [place] [address] Result Comment: Donna mated Glomerular Filtration Rate [...] GFR. Performed By: #### 2 4321-2 #### [facility] CLIA [id number] [address] [place] [address] [place] Glucose [Mass/Vol] 123 mg/dL High 74-99 [facility] Comment on above: Order Comment: [place] Type: BLOOD SPECIMEN Ordering Facility: [facility] Address: [address] [place] [address] Result Comment: The [place] Diabetes Association (ADA) provides guidance for cutoff [...] Standards of Medical Care in Diabetes 2016, [place] [employer] Association. Diabetes Care. 2016.39(Suppl 1). Performed By: #### 2 4321-2 #### [facility] CLIA [id number] [address] [place] [address] [place] Potassium [Moles/Vol] 5.0 mmol/L Normal 3.7-5.1 [facility] Comment on above: Order Comment: [place] Type: BLOOD SPECIMEN Ordering Facility: [facility] Address: [address] [place] [address] Performed By: #### 2 4321-2 #### [facility] CLIA [id number] [address] [place] [address] [place] Sodium [Moles/Vol] 136 mmol/L Normal 136-144 [facility] Comment on above: Order Comment: Simonai reinier Type: BLOOD SPECIMEN Ordering Facility: [facility] Address: [address] [place] [address] Performed By: #### 2 4321-2 #### [facility] CLIA [id number] [address] [place] [address] [place] Urea nitrogen [Mass/Vol] 22 mg/dL High 7-21 [facility] Comment on above: Order Comment: Speci men Type: BLOOD SPECIMEN Ordering Facility: [facility] Address: [address] [place] [address] Performed By: #### 2 4321-2 #### [facility] CLIA [id number] [address] [place] [address] [place] CBC panel Auto (Bld)on 09-03 Erythrocyte distribution width (RBC) [Ratio] 14.6 % Normal 11.5-15.0 [facility] Comment on above: Order Comment: Speci men Type: BLOOD SPECIMEN Ordering Facility: [facility] Address: [address] [place] [address] Performed By: #### B [place], 35494-6 #### [facility] CLIA [id number] [address] [place] [address] [place] Hematocrit (Bld) [Volume fraction] 28.7 % Low 36.0-46.0 [facility] Comment on above: Order Comment: Speci men Type: BLOOD SPECIMEN Ordering Facility: [facility] Address: [address] [place] [address] Performed By: #### B [place], 699[address]-3 #### [facility] CLIA [id number] [address] [place] [address] [place] Hemoglobin (Bld) [Mass/Vol] 8.9 g/dL Low 11.5-15.5 [facility] Comment on above: Order Comment: Speci men Type: BLOOD SPECIMEN Ordering Facility: [facility] Address: [address] [place] [address] Performed By: #### B [place], 523[address]-0 #### [facility] CLIA [id number] [address] [place] [address] [place] MCH (RBC) [Entitic mass] 24.1 pg Low 26.0-34.0 [facility] Comment on above: Order Comment: Speci men Type: BLOOD SPECIMEN Ordering Facility: [facility] Address: [address] [place] [address] Performed By: #### [place], 97382-6 #### [facility] CLIA [id number] [address] [place] [address] [place] MCHC (RBC) [Mass/Vol] 31.0 g/dL Normal 30.5-36.0 [facility] Comment on above: Order Comment: Speci men Type: BLOOD SPECIMEN Ordering Facility: [facility] Address: [address] [place] [address] Performed By: #### B HB, #### [facility] CLIA [id number] [address] [place] [address] [place] MCV (RBC) [Entitic vol] 77.6 fL Low 80.0-100.0 [facility] Comment on above: Order Comment: Speci men Type: BLOOD SPECIMEN Ordering Facility: [facility] Address: [address] [place] [address] Performed By: #### B HB, #### [facility] CLIA [id number] [address] [place] [address] [place] Nucleated RBC (Bld) [#/Vol] 10*3/uL Normal <0.01 [facility] Comment on above: Order Comment: Speci men Type: BLOOD SPECIMEN Ordering Facility: [facility] Address: [address] [place] [address] Performed By: #### B HB, #### [facility] CLIA [id number] [address] [place] [address] [place] Platelet mean volume (Bld) [Entitic vol] 10.8 fL Normal 9.0-12.7 [facility] Comment on above: Order Comment: Speci men Type: BLOOD SPECIMEN Ordering Facility: [facility] Address: [address] [place] [address] Performed By: #### B HB, #### [facility] CLIA [id number] [address] [place] [address] [place] Platelets (Bld) [#/Vol] 334 10*3/uL Normal 150-400 [facility] Comment on above: Order Comment: Speci men Type: BLOOD SPECIMEN Ordering Facility: [facility] Address: [address] [place] [address] Performed By: #### B HB, #### [facility] CLIA [id number] [address] [place] [address] [place] RBC (Bld) [#/Vol] 3.70 10*6/uL Low 3.90-5.20 [facility] Comment on above: Order Comment: Speci men Type: BLOOD SPECIMEN Ordering Facility: [facility] Address: [address] [place] [address] Performed By: #### B HB, 73265-0 #### [facility] CLIA [id number] [address] [place] [id number] [place] WBC (Bld) [#/Vol] 6.44 10*3/uL Normal 3.70-11.00 [facility] Comment on above: Order Comment: Speci men Type: BLOOD SPECIMEN Ordering Facility: [facility] Address: [address] [place] [address] Performed By: #### B HB, 18408-7 #### [facility] CLIA [id number] [address] [place] [address] [place] CT FOOT WO [...] NO EVIDENCE OF OSTEOMYELITIS ON THIS EXAMINATION. Report Manager: GUILLE Transcribe Date/Time: Sep 03 2023 11:22P Dictated by : FINESSE BUTLER MD This examination was interpreted and the report reviewed and electronically signed by: FINESSE BUTLER MD on Sep 03 2023 11:27PM EST [id number] Normal [facility] Basic metabolic 2000 panelon 09-02-2023 Anion gap [Moles/Vol] 9 mmol/L Normal 9-18 [facility] Comment on above: Order Comment: Speci men Type: BLOOD SPECIMEN Ordering Facility: [facility] Address: [address] [place] [address] Performed By: #### B HB, #### [facility] CLIA [id number] [address] [place] [address] [place] Calcium [Mass/Vol] 8.1 mg/dL Low 8.5-10.2 [facility] Comment on above: Order Comment: Speci men Type: BLOOD SPECIMEN Ordering Facility: [facility] Address: [address] [place] [address] Performed By: #### B HB, #### [facility] CLIA [id number] [address] [place] [address] [place] Chloride [Moles/Vol] 106 mmol/L High 97-105 [facility] Comment on above: Order Comment: Speci men Type: BLOOD SPECIMEN Ordering Facility: [facility] Address: [address] [place] [address] Performed By: #### B HB, #### [facility] CLIA [id number] [address] [place] [address] [place] CO2 [Moles/Vol] 22 mmol/L Normal 22-30 [facility] Comment on above: Order Comment: Speci men Type: BLOOD SPECIMEN Ordering Facility: [facility] Address: [address] [place] [address] Performed By: #### B HB, #### [facility] CLIA [id number] [address] [place] [address] [place] Creatinine [Mass/Vol] 1.30 mg/dL High 0.58-0.96 [facility] Comment on above: Order Comment: [place] Type: BLOOD SPECIMEN Ordering Facility: [facility] Address: [address] [place] [address] Performed By: #### B HB, 38410-4 #### [facility] CLIA [id number] [address] [place] [address] [facility] [place] Creatinine and Glomerular filtration rate.predicted panel (S/P/Bld) 46 mL/min/1.73m??? Low >=60 [facility] Comment on above: Order Comment: [place] Type: BLOOD SPECIMEN Ordering Facility: [facility] Address: [address] [place] [address] Result Comment: Donna mated Glomerular Filtration Rate [...] actual GFR. Performed By: #### [place], 50168-8 #### [facility] CLIA [id number] [address] [place] [address] [place] Glucose [Mass/Vol] 192 mg/dL High 74-99 [facility] Comment on above: Order Comment: [place] Type: BLOOD SPECIMEN Ordering Facility: [facility] Address: [address] [place] [address] Result Comment: The [place] Diabetes Association (ADA) provides guidance for cutoff [...] Standards of Medical Care in Diabetes 2016, [place] [employer]. Diabetes Care. 2016.39(Suppl 1). Performed By: #### B [place], 38363-6 #### [facility] CLIA [id number] [address] [place] [address] [place] Potassium [Moles/Vol] 4.9 mmol/L Normal 3.7-5.1 [facility] Comment on above: Order Comment: Speci men Type: BLOOD SPECIMEN Ordering Facility: [facility] Address: [address] [place] [address] Performed By: #### B HB, 97081-5 #### [facility] CLIA [id number] [address] [place] [address] [place] Sodium [Moles/Vol] 137 mmol/L Normal 136-144 [facility] Comment on above: Order Comment: Simonai men Type: BLOOD SPECIMEN Ordering Facility: [facility] Address: [address] [place] [address] Performed By: #### B HB, 10196-4 #### [facility] CLIA [id number] [address] [place] [address] [place] Urea nitrogen [Mass/Vol] 17 mg/dL Normal 7-21 [facility] Comment on above: Order Comment: Simonai men Type: BLOOD SPECIMEN Ordering Facility: [facility] Address: [address] [place] [address] Performed By: #### B HB, 98921-2 #### [facility] CLIA [id number] [address] [place] [address] [place] CBC panel Auto (Bld)on 09-02 Erythrocyte distribution width (RBC) [Ratio] 14.6 % Normal 11.5-15.0 [facility] Comment on above: Order Comment: Speci men Type: BLOOD SPECIMEN Ordering Facility: [facility] Address: [address] [place] [address] Performed By: #### B [place], 27658-5 #### [facility] CLIA [id number] [address] [place] [address] [place] Hematocrit (Bld) [Volume fraction] 28.4 % Low 36.0-46.0 [facility] Comment on above: Order Comment: Speci men Type: BLOOD SPECIMEN Ordering Facility: [facility] Address: [address] [place] [address] Performed By: #### B HB, #### [facility] CLIA [id number] [address] [place] [address] [place] Hemoglobin (Bld) [Mass/Vol] 8.9 g/dL Low 11.5-15.5 [facility] Comment on above: Order Comment: Speci men Type: BLOOD SPECIMEN Ordering Facility: [facility] Address: [address] [place] [address] Performed By: #### B HB, #### [facility] CLIA [id number] [address] [place] [address] [place] MCH (RBC) [Entitic mass] 24.2 pg Low 26.0-34.0 [facility] Comment on above: Order Comment: Speci men Type: BLOOD SPECIMEN Ordering Facility: [facility] Address: [address] [place] [address] Performed By: #### B HB, #### [facility] CLIA [id number] [address] [place] [address] [place] MCHC (RBC) [Mass/Vol] 31.3 g/dL Normal 30.5-36.0 [facility] Comment on above: Order Comment: Speci men Type: BLOOD SPECIMEN Ordering Facility: [facility] Address: [address] [place] [address] Performed By: #### B HB, #### [facility] CLIA [id number] [address] [place] [address] [place] MCV (RBC) [Entitic vol] 77.2 fL Low 80.0-100.0 [facility] Comment on above: Order Comment: Speci men Type: BLOOD SPECIMEN Ordering Facility: [facility] Address: [address] [place] [address] Performed By: #### B HB, #### [facility] CLIA [id number] [address] [place] [address] [place] Nucleated RBC (Bld) [#/Vol] 10*3/uL Normal <0.01 [facility] Comment on above: Order Comment: Speci men Type: BLOOD SPECIMEN Ordering Facility: [facility] Address: [address] [place] [address] Performed By: #### B HB, 57914-0 #### [facility] CLIA [id number] [address] [place] [address] [place] Platelet mean volume (Bld) [Entitic vol] 10.4 fL Normal 9.0-12.7 [facility] Comment on above: Order Comment: Speci men Type: BLOOD SPECIMEN Ordering Facility: [facility] Address: [address] [place] [address] Performed By: #### B HB, 40427-5 #### [facility] CLIA [id number] [address] [place] [address] [place] Platelets (Bld) [#/Vol] 285 10*3/uL Normal 150-400 [facility] Comment on above: Order Comment: Speci men Type: BLOOD SPECIMEN Ordering Facility: [facility] Address: [address] [place] [address] Performed By: #### B HB, 27472-0 #### [facility] CLIA [id number] [address] [place] [address] [place] RBC (Bld) [#/Vol] 3.68 10*6/uL Low 3.90-5.20 [facility] Comment on above: Order Comment: Speci men Type: BLOOD SPECIMEN Ordering Facility: [facility] Address: [address] [place] [address] Performed By: #### B HB, 23939-2 #### [facility] CLIA [id number] [address] [place] [address] [place] WBC (Bld) [#/Vol] 5.94 10*3/uL Normal 3.70-11.00 [facility] Comment on above: Order Comment: Speci men Type: BLOOD SPECIMEN Ordering Facility: [facility] Address: [address] [place] [address] Performed By: #### [place], [address]-0 #### [facility] CLIA [id number] [address] [place] [address] [place] Bacteria Ur Culton 4 Bacteria identified Cx Nom (U) CULTURE, URINE: No growth (<1,000 CFU/ml) Normal [facility] Comment on above: Performed By: #### 6 30-4 #### [facility] CLIA [id number] [address] [facility] [place] [address] [place] Basic metabolic 2000 panelon 09-01-2023 Anion gap [Moles/Vol] 10 mmol/L Normal 9-18 [facility] Comment on above: Order Comment: Speci men Type: BLOOD SPECIMEN Ordering Facility: [facility] Address: [address] [place] [address] Performed By: #### [place], [address]-2 #### [facility] CLIA [id number] [address] [place] [address] [place] Calcium [Mass/Vol] 7.9 mg/dL Low 8.5-10.2 [facility] Comment on above: Order Comment: Speci men Type: BLOOD SPECIMEN Ordering Facility: [facility] Address: [address] [place] [address] Performed By: #### [place], [address]-7 #### [facility] CLIA [id number] [address] [place] [address] [place] Chloride [Moles/Vol] 108 mmol/L High 97-105 [facility] Comment on above: Order Comment: Speci men Type: BLOOD SPECIMEN Ordering Facility: [facility] Address: [address] [place] [address] Performed By: #### B HB, 97614-3 #### [facility] CLIA [id number] [address] [place] [address] [place] CO2 [Moles/Vol] 20 mmol/L Low 22-30 [facility] Comment on above: Order Comment: Speci men Type: BLOOD SPECIMEN Ordering Facility: [facility] Address: [address] [place] [address] Performed By: #### B [place], 30875-8 #### [facility] CLIA [id number] [address] [place] [address] [place] Creatinine [Mass/Vol] 1.39 mg/dL High 0.58-0.96 [facility] Comment on above: Order Comment: Speci men Type: BLOOD SPECIMEN Ordering Facility: [facility] Address: [address] [place] [address] Performed By: #### B HB, 47453-9 #### [facility] CLIA [id number] [address] [place] [address] [place] Creatinine and Glomerular filtration rate.predicted panel (S/P/Bld) 42 mL/min/1.73m??? Low >=60 [facility] Comment on above: Order Comment: [place] Type: BLOOD SPECIMEN Ordering Facility: [facility] Address: [address] [place] [address] Result Comment: Donna mated Glomerular Filtration Rate [...] actual GFR. Performed By: #### B HB, 05968-8 #### [facility] CLIA [id number] [address] [place] [address] [place] Glucose [Mass/Vol] 74 mg/dL Normal 74-99 [facility] Comment on above: Order Comment: Simonai reinier Type: BLOOD SPECIMEN Ordering Facility: [facility] Address: [address] [place] [address] Result Comment: The [place] [employer] (ADA) provides guidance for cutoff [...] Standards of Medical Care in Diabetes 2016, [place] [employer]. Diabetes Care. 2016.39(Suppl 1). Performed By: #### B HB, 81555-6 #### [facility] CLIA [id number] [address] [place] [address] [place] Potassium [Moles/Vol] 4.7 mmol/L Normal 3.7-5.1 [facility] Comment on above: Order Comment: Speci men Type: BLOOD SPECIMEN Ordering Facility: [facility] Address: [address] [place] [address] Performed By: #### B HB, 53147-2 #### [facility] CLIA [id number] [address] [place] [address] [place] Sodium [Moles/Vol] 138 mmol/L Normal 136-144 [facility] Comment on above: Order Comment: Speci men Type: BLOOD SPECIMEN Ordering Facility: [facility] Address: [address] [place] [address] Performed By: #### B HB, 09385-4 #### [facility] CLIA [id number] [address] [place] [address] [place] Urea nitrogen [Mass/Vol] 25 mg/dL High 7-21 [facility] Comment on above: Order Comment: Simonai men Type: BLOOD SPECIMEN Ordering Facility: [facility] Address: [address] [place] [address] Performed By: #### B HB, 20099-3 #### [facility] CLIA [id number] [address] [place] [address] [place] CBC panel Auto (Bld)on 09-01 Erythrocyte distribution width (RBC) [Ratio] 14.7 % Normal 11.5-15.0 [facility] Comment on above: Order Comment: Simonai men Type: BLOOD SPECIMEN Ordering Facility: [facility] Address: [address] [place] [address] Performed By: #### B HB, #### [facility] CLIA [id number] [address] [place] [address] [place] Hematocrit (Bld) [Volume fraction] 29.4 % Low 36.0-46.0 [facility] Comment on above: Order Comment: Speci men Type: BLOOD SPECIMEN Ordering Facility: [facility] Address: [address] [place] [address] Performed By: #### B HB, #### [facility] CLIA [id number] [address] [place] [address] [place] Hemoglobin (Bld) [Mass/Vol] 9.1 g/dL Low 11.5-15.5 [facility] Comment on above: Order Comment: Speci men Type: BLOOD SPECIMEN Ordering Facility: [facility] Address: [address] [place] [address] Performed By: #### B HB, #### [facility] CLIA [id number] [address] [place] [address] [place] MCH (RBC) [Entitic mass] 24.4 pg Low 26.0-34.0 [facility] Comment on above: Order Comment: Speci men Type: BLOOD SPECIMEN Ordering Facility: [facility] Address: [address] [place] [address] Performed By: #### B HB, #### [facility] CLIA [id number] [address] [place] [address] [place] MCHC (RBC) [Mass/Vol] 31.0 g/dL Normal 30.5-36.0 [facility] Comment on above: Order Comment: Speci men Type: BLOOD SPECIMEN Ordering Facility: [facility] Address: [address] [place] [address] Performed By: #### B HB, #### [facility] CLIA [id number] [address] [place] [address] OF [place] MCV (RBC) [Entitic vol] 78.8 fL Low 80.0-100.0 [facility] Comment on above: Order Comment: Speci men Type: BLOOD SPECIMEN Ordering Facility: [facility] Address: [address] [place] [address] Performed By: #### B [place], 20840-7 #### [facility] CLIA [id number] [address] [place] [address] [place] Nucleated RBC (Bld) [#/Vol] 10*3/uL Normal <0.01 [facility] Comment on above: Order Comment: Speci men Type: BLOOD SPECIMEN Ordering Facility: [facility] Address: [address] [place] [address] Performed By: #### B HB, #### [facility] CLIA [id number] [address] [place] [address] [place] Platelet mean volume (Bld) [Entitic vol] 10.8 fL Normal 9.0-12.7 [facility] Comment on above: Order Comment: Speci men Type: BLOOD SPECIMEN Ordering Facility: [facility] Address: [address] [place] [address] Performed By: #### B HB, 12414-1 #### [facility] CLIA [id number] [address] [place] [address] [place] Platelets (Bld) [#/Vol] 275 10*3/uL Normal 150-400 [facility] Comment on above: Order Comment: Speci men Type: BLOOD SPECIMEN Ordering Facility: [facility] Address: [address] [place] [address] Performed By: #### B HB, 18585-1 #### [facility] CLIA [id number] [address] [place] [address] [place] RBC (Bld) [#/Vol] 3.73 10*6/uL Low 3.90-5.20 [facility] Comment on above: Order Comment: Speci men Type: BLOOD SPECIMEN Ordering Facility: [facility] Address: [address] [place] [address] Performed By: #### B HB, 22383-7 #### [facility] CLIA [id number] [address] [place] [address] [place] WBC (Bld) [#/Vol] 7.48 10*3/uL Normal 3.70-11.00 [facility] Comment on above: Order Comment: Speci men Type: BLOOD SPECIMEN Ordering Facility: [facility] Address: [address] [place] [address] Performed By: #### B HB, 53345-5 #### [facility] CLIA [id number] [place] [address] [place] CONSULTon 09-01-2023 CONSULT HNO ID: [id number] Author: NORMAN ROUSSEAU RN Service: ? Author [...] 2023 TIME: 10:44 AM PAGER/CONTACT #: Normal [facility] Magnesium SerPl-mCncon 09-01 Magnesium [Mass/Vol] 1.5 mg/dL Low 1.7-2.3 [facility] Comment on above: Order Comment: Speci men Type: BLOOD SPECIMEN Ordering Facility: [facility] Address: [address] [place] [address] Performed By: #### B HB, #### [facility] CLIA [id number] [address] [place] [address] [place] URINALYSIS, REFLEX MICROSCOP ICon 09-01-2023 Bacteria LM.HPF (Urine sed) [#/Area] Few Abnormal None Seen [facility] Comment on above: Order Comment: Speci men Type: BLOOD SPECIMEN Ordering Facility: [facility] Address: [address] [place] [address] Performed By: #### B HB, 83511-6 #### [facility] CLIA [id number] [address] [place] [address] [place] Bilirubin Ql (U) Negative Normal Negative [facility] Comment on above: Order Comment: Speci men Type: BLOOD SPECIMEN Ordering Facility: [facility] Address: [address] [place] [address] Performed By: #### B HB, #### [facility] CLIA [id number] [address] [place] [address] [place] Clarity (Unsp spec) Turbid Abnormal Clear [facility] Comment on above: Order Comment: Speci men Type: BLOOD SPECIMEN Ordering Facility: [facility] Address: [address] [place] [address] Performed By: #### B HB, #### [facility] CLIA [id number] [address] [place] [address] [place] Color (U) Light Yellow Normal Yellow [facility] Comment on above: Order Comment: Speci men Type: BLOOD SPECIMEN Ordering Facility: [facility] Address: [address] [place] [address] Performed By: #### B HB, #### [facility] CLIA [id number] [address] [place] [address] [place] Epithelial cells LM.HPF (Urine sed) [#/Area] Few Normal [facility] Comment on above: Order Comment: Speci men Type: BLOOD SPECIMEN Ordering Facility: [facility] Address: [address] [place] [address] Performed By: #### B HB, #### [facility] CLIA [id number] [address] [place] [address] [place] Glucose Test strip (U) [Mass/Vol] Negative Normal Trace, Negative [facility] Comment on above: Order Comment: Speci men Type: BLOOD SPECIMEN Ordering Facility: [facility] Address: [address] [place] [address] Performed By: #### B HB, #### [facility] CLIA [id number] [address] [place] [address] [place] Hemoglobin Ql (U) 1+ Abnormal Negative, Trace [facility] Comment on above: Order Comment: Speci men Type: BLOOD SPECIMEN Ordering Facility: [facility] Address: [address] [place] [address] Performed By: #### B HB, #### [facility] CLIA [id number] [address] [place] [address] [place] Ketones Ql (U) Negative Normal Negative, Trace [facility] Comment on above: Order Comment: Speci men Type: BLOOD SPECIMEN Ordering Facility: [facility] Address: [address] [place] [address] Performed By: #### B HB, #### [facility] CLIA [id number] [address] [place] [address] [place] Leukocyte esterase Test strip Ql (U) 500 Liam/uL Abnormal Negative, 25 Liam/uL [facility] Comment on above: Order Comment: Speci men Type: BLOOD SPECIMEN Ordering Facility: [facility] Address: [address] [place] [address] Performed By: #### B HB, #### [facility] CLIA [id number] [address] [place] [address] [place] Nitrite Ql (U) Negative Normal Negative [facility] Comment on above: Order Comment: Speci men Type: BLOOD SPECIMEN Ordering Facility: [facility] Address: [address] [place] [address] Performed By: #### B HB, #### [facility] CLIA [id number] [address] [place] [address] [place] pH (U) 6.0 [pH] Normal 5.0-8.0 [facility] Comment on above: Order Comment: Speci men Type: BLOOD SPECIMEN Ordering Facility: [facility] Address: [address] [place] [address] Performed By: #### B HB, #### [facility] CLIA [id number] [address] [place] [address] [place] Protein (U) [Mass/Vol] 1+ Abnormal Trace, Negative [facility] Comment on above: Order Comment: Speci men Type: BLOOD SPECIMEN Ordering Facility: [facility] Address: [address] [place] [address] Performed By: #### B HB, #### [facility] CLIA [id number] [address] [place] [address] [place] RBC LM.HPF (Urine sed) [#/Area] /[HPF] Abnormal 0-3 /HPF [facility] Comment on above: Order Comment: Speci men Type: BLOOD SPECIMEN Ordering Facility: [facility] Address: [address] [place] [address] Performed By: #### Kimberlyn HB, #### [facility] CLIA [id number] [address] [place] [address] Specific gravity (U) [Rel density] 1.011 Normal 1.005-1.030 [facility] Comment on above: Order Comment: Speci men Type: BLOOD SPECIMEN Ordering Facility: [facility] Address: [address] [place] [address] Performed By: #### Kimberlyn HB, #### [facility] CLIA [id number] [address] [place] [address] Urobilinogen Ql (U) Negative Normal Negative [facility] Comment on above: Order Comment: Speci men Type: BLOOD SPECIMEN Ordering Facility: [facility] Address: [address] [place] [address] Performed By: #### Kimberlyn HB, #### [facility] CLIA [id number] [address] [place] [address] WBC LM.HPF (Urine sed) [#/Area] /[HPF] Abnormal 0-5 /HPF [facility] Comment on above: Order Comment: Speci men Type: BLOOD SPECIMEN Ordering Facility: [facility] Address: [address] [place] [address] Performed By: #### B HB, #### [facility] CLIA [id number] [address] [place] [address] ALLIED HEALTHon 08-31-2023 ALLIED HEALTH HNO ID: [id number] Author: LAKISHA LITTLE RT(R) Service: ? Author [...] Chriss(R) August 31, 2023 4:44 AM Normal [facility] Bacteria Bld Culton 08-31-19 24 Bacteria identified Cx Nom (Bld) CULTURE, BLOOD: No growth 5 days Normal [facility] Comment on above: Performed By: #### 6 00-7 ####[facility] [id number] [place] [address] [place] Bacteria Ur Culton [...] technique or straight catheterization for???urine???collectio n. Normal [facility] Comment on above: Performed By: #### 6 30-4 #### [facility] CLIA [id number] [address] [place] [address] [place] CBC W Auto Differential pane l (Bld)on 08-31-2023 Basophils (Bld) [#/Vol] 0.03 10*3/uL Normal <0.11 [facility] Comment on above: Order Comment: Speci men Type: BLOOD SPECIMEN Ordering Facility: [facility] Address: [address] [place] [address] Performed By: #### B HB, #### [facility] CLIA [id number] [address] [place] [address] [place] Basophils/100 WBC (Bld) 0.3 % Normal [facility] Comment on above: Order Comment: Speci men Type: BLOOD SPECIMEN Ordering Facility: [facility] Address: [address] [place] [address] Performed By: #### B HB, #### [facility] CLIA [id number] [address] [place] [address] [place] Differential cell count method Nom (Bld) Auto Normal [facility] Comment on above: Order Comment: Speci men Type: BLOOD SPECIMEN Ordering Facility: [facility] Address: [address] [place] [address] Performed By: #### B HB, #### [facility] CLIA [id number] [address] [place] [address] [place] Eosinophils (Bld) [#/Vol] 10*3/uL Normal <0.46 [facility] Comment on above: Order Comment: Speci men Type: BLOOD SPECIMEN Ordering Facility: [facility] Address: [address] [place] [address] Performed By: #### B HB, #### [facility] CLIA [id number] [address] [place] [address] [place] Eosinophils/100 WBC (Bld) 0.1 % Normal [facility] Comment on above: Order Comment: Speci men Type: BLOOD SPECIMEN Ordering Facility: [facility] Address: [address] [place] [address] Performed By: #### B HB, #### [facility] CLIA [id number] [address] [place] [address] [place] Erythrocyte distribution width (RBC) [Ratio] 14.5 % Normal 11.5-15.0 [facility] Comment on above: Order Comment: Speci men Type: BLOOD SPECIMEN Ordering Facility: [facility] Address: [address] [place] [address] Performed By: #### B HB, #### [facility] CLIA [id number] [address] [place] [address] [place] Hematocrit (Bld) [Volume fraction] 31.5 % Low 36.0-46.0 [facility] Comment on above: Order Comment: Speci men Type: BLOOD SPECIMEN Ordering Facility: [facility] Address: [address] [place] [address] Performed By: #### B HB, #### [facility] CLIA [id number] [address] [place] [address] [place] Hemoglobin (Bld) [Mass/Vol] 10.0 g/dL Low 11.5-15.5 [facility] Comment on above: Order Comment: Speci men Type: BLOOD SPECIMEN Ordering Facility: [facility] Address: [address] [place] [address] Performed By: #### B HB, #### [facility] CLIA [id number] [address] [place] [address] [place] Immature granulocytes (Bld) [#/Vol] 0.06 10*3/uL Normal <0.10 [facility] Comment on above: Order Comment: Speci men Type: BLOOD SPECIMEN Ordering Facility: [facility] Address: [address] [place] [address] Performed By: #### B HB, #### [facility] CLIA [id number] [address] [place] [address] [place] Immature granulocytes/100 WBC (Bld) 0.7 % Normal [facility] Comment on above: Order Comment: Speci men Type: BLOOD SPECIMEN Ordering Facility: [facility] Address: [address] [place] [address] Performed By: #### B HB, #### [facility] CLIA [id number] [address] [place] [address] [place] Lymphocytes (Bld) [#/Vol] 1.67 10*3/uL Normal 1.00-4.00 [facility] Comment on above: Order Comment: Speci men Type: BLOOD SPECIMEN Ordering Facility: [facility] Address: [address] [place] [address] Performed By: #### B HB, #### [facility] CLIA [id number] [address] [place] [address] [place] Lymphocytes/100 WBC (Bld) 18.8 % Normal [facility] Comment on above: Order Comment: Speci men Type: BLOOD SPECIMEN Ordering Facility: [facility] Address: [address] [place] [address] Performed By: #### B HB, #### [facility] CLIA [id number] [address] [place] [address] [place] MCH (RBC) [Entitic mass] 24.5 pg Low 26.0-34.0 [facility] Comment on above: Order Comment: Speci men Type: BLOOD SPECIMEN Ordering Facility: [facility] Address: [address] [place] [address] Performed By: #### B HB, #### [facility] CLIA [id number] [address] [place] [address] [place] MCHC (RBC) [Mass/Vol] 31.7 g/dL Normal 30.5-36.0 [facility] Comment on above: Order Comment: Speci men Type: BLOOD SPECIMEN Ordering Facility: [facility] Address: [address] [place] [address] Performed By: #### B HB, #### [facility] CLIA [id number] [address] [place] [address] [place] MCV (RBC) [Entitic vol] 77.2 fL Low 80.0-100.0 [facility] Comment on above: Order Comment: Speci men Type: BLOOD SPECIMEN Ordering Facility: [facility] Address: [address] [place] [address] Performed By: #### B HB, #### [facility] CLIA [id number] [address] [place] [address] [place] Monocytes (Bld) [#/Vol] 0.71 10*3/uL Normal <0.87 [facility] Comment on above: Order Comment: Speci men Type: BLOOD SPECIMEN Ordering Facility: [facility] Address: [address] [place] [address] Performed By: #### B HB, #### [facility] CLIA [id number] [address] [place] [address] [place] Monocytes/100 WBC (Bld) 8.0 % Normal [facility] Comment on above: Order Comment: Speci men Type: BLOOD SPECIMEN Ordering Facility: [facility] Address: [address] [place] [address] Performed By: #### B HB, #### [facility] CLIA [id number] [address] [place] [address] [place] Neutrophils (Bld) [#/Vol] 6.39 10*3/uL Normal 1.45-7.50 [facility] Comment on above: Order Comment: Speci men Type: BLOOD SPECIMEN Ordering Facility: [facility] Address: [address] [place] [address] Performed By: #### B HB, #### [facility] CLIA [id number] [address] [place] [address] [place] Neutrophils/100 WBC (Bld) 72.1 % Normal [facility] Comment on above: Order Comment: Speci men Type: BLOOD SPECIMEN Ordering Facility: [facility] Address: [address] [place] [address] Performed By: #### B HB, #### [facility] CLIA [id number] [address] [place] [address] [place] Nucleated RBC (Bld) [#/Vol] 10*3/uL Normal <0.01 [facility] Comment on above: Order Comment: Speci men Type: BLOOD SPECIMEN Ordering Facility: [facility] Address: [address] [place] [address] Performed By: #### B HB, #### [facility] CLIA [id number] [address] [place] [address] [place] Nucleated RBC/100 WBC (Bld) [Ratio] 0.0 /100 WBC Normal [facility] Comment on above: Order Comment: Speci men Type: BLOOD SPECIMEN Ordering Facility: [facility] Address: [address] [place] [address] Performed By: #### B HB, #### [facility] CLIA [id number] [address] [place] [address] [place] Platelet mean volume (Bld) [Entitic vol] 11.3 fL Normal 9.0-12.7 [facility] Comment on above: Order Comment: Speci men Type: BLOOD SPECIMEN Ordering Facility: [facility] Address: [address] [place] [address] Performed By: #### B HB, #### [facility] CLIA [id number] [address] [place] [address] [place] Platelets (Bld) [#/Vol] 316 10*3/uL Normal 150-400 [facility] Comment on above: Order Comment: Speci men Type: BLOOD SPECIMEN Ordering Facility: [facility] Address: [address] [place] [address] Performed By: #### B HB, #### [facility] CLIA [id number] [address] [place] [address] [place] RBC (Bld) [#/Vol] 4.08 10*6/uL Normal 3.90-5.20 [facility] Comment on above: Order Comment: Speci men Type: BLOOD SPECIMEN Ordering Facility: [facility] Address: [address] [place] [address] Performed By: #### B HB, #### [facility] CLIA [id number] [address] [place] [address] [place] WBC (Bld) [#/Vol] 8.87 10*3/uL Normal 3.70-11.00 [facility] Comment on above: Order Comment: Speci men Type: BLOOD SPECIMEN Ordering Facility: [facility] Address: [address] [place] [address] Performed By: #### B HB, 83107-1 #### [facility] CLIA [id number] [address] [place] [address] [place] Comprehensive metabolic 2000 panelon 08-31-2023 Albumin [Mass/Vol] 3.7 g/dL Low 3.9-4.9 [facility] Comment on above: Order Comment: Speci men Type: BLOOD SPECIMEN Ordering Facility: [facility] Address: [address] [place] [address] Performed By: #### B HB, 30220-2 #### [facility] CLIA [id number] [place] [place] [address] [place] ALP [Catalytic activity/Vol] 99 U/L Normal 34-123 [facility] Comment on above: Order Comment: Speci men Type: BLOOD SPECIMEN Ordering Facility: [facility] Address: [address] [place] [address] Performed By: #### B HB, #### [facility] CLIA [id number] [address] [place] [address] [place] ALT [Catalytic activity/Vol] U/L Low 7-38 [facility] Comment on above: Order Comment: Speci men Type: BLOOD SPECIMEN Ordering Facility: [facility] Address: [address] [place] [address] Performed By: #### B HB, 36072-5 #### [facility] CLIA [id number] [address] [place] [address] [place] Anion gap [Moles/Vol] 12 mmol/L Normal 9-18 [facility] Comment on above: Order Comment: Speci men Type: BLOOD SPECIMEN Ordering Facility: [facility] Address: [address] [place] [address] Performed By: #### B HB, 89426-3 #### [facility] CLIA [id number] [place] [address] [place] AST [Catalytic activity/Vol] 7 U/L Low 13-35 [facility] Comment on above: Order Comment: Speci men Type: BLOOD SPECIMEN Ordering Facility: [facility] Address: [address] [place] [address] Performed By: #### B HB, #### [facility] CLIA [id number] [address] [place] [address] [place] Bilirubin [Mass/Vol] 0.3 mg/dL Normal 0.2-1.3 [facility] Comment on above: Order Comment: Speci men Type: BLOOD SPECIMEN Ordering Facility: [facility] Address: [address] [place] [address] Performed By: #### B HB, #### [facility] CLIA [id number] [address] [place] [address] [place] Calcium [Mass/Vol] 8.7 mg/dL Normal 8.5-10.2 [facility] Comment on above: Order Comment: Speci men Type: BLOOD SPECIMEN Ordering Facility: [facility] Address: [address] [place] [address] Performed By: #### B HB, #### [facility] CLIA [id number] [address] [place] [address] [place] Chloride [Moles/Vol] 99 mmol/L Normal 97-105 [facility] Comment on above: Order Comment: Speci men Type: BLOOD SPECIMEN Ordering Facility: [facility] Address: [address] [place] [address] Performed By: #### B HB, #### [facility] CLIA [id number] [address] [place] [address] [place] CO2 [Moles/Vol] 19 mmol/L Low 22-30 [facility] Comment on above: Order Comment: Speci men Type: BLOOD SPECIMEN Ordering Facility: [facility] Address: [address] [place] [address] Performed By: #### B HB, #### [facility] CLIA [id number] [address] [place] [address] [place] Creatinine [Mass/Vol] 2.15 mg/dL High 0.58-0.96 [facility] Comment on above: Order Comment: Speci men Type: BLOOD SPECIMEN Ordering Facility: [facility] Address: [address] [place] [address] Performed By: #### B HB, 12688-0 #### [facility] CLIA [id number] [address] [place] [address] [place] Creatinine and Glomerular filtration rate.predicted panel (S/P/Bld) 25 mL/min/1.73m??? Low >=60 [facility] Comment on above: Order Comment: [place] Type: BLOOD SPECIMEN Ordering Facility: [facility] Address: [address] [place] [address] Result Comment: Donna mated Glomerular Filtration Rate [...] actual GFR. Performed By: #### B HB, 26958-6 #### [facility] CLIA [id number] [place] [address] [place] Glucose [Mass/Vol] 428 mg/dL High 74-99 [facility] Comment on above: Order Comment: [place] Type: BLOOD SPECIMEN Ordering Facility: [facility] Address: [address] [place] [address] Result Comment: The [place] [employer] (ADA) provides guidance for cutoff [...] Standards of Medical Care in Diabetes 2016, [place] [employer]. Diabetes Care. 2016.39(Suppl 1). Performed By: #### B HB, 46333-8 #### [facility] CLIA [id number] [place] [address] [place] Potassium [Moles/Vol] 5.2 mmol/L High 3.7-5.1 [facility] Comment on above: Order Comment: Speci men Type: BLOOD SPECIMEN Ordering Facility: [facility] Address: [address] [place] [address] Performed By: #### B HB, #### [facility] CLIA [id number] [address] [place] [address] [place] Protein [Mass/Vol] 9.1 g/dL High 6.3-8.0 [facility] Comment on above: Order Comment: Speci men Type: BLOOD SPECIMEN Ordering Facility: [facility] Address: [address] [place] [address] Performed By: #### B HB, #### [facility] CLIA [id number] [address] [place] [address] [place] Sodium [Moles/Vol] 130 mmol/L Low 136-144 [facility] Comment on above: Order Comment: Speci men Type: BLOOD SPECIMEN Ordering Facility: [facility] Address: [address] [place] [address] Performed By: #### B HB, #### [facility] CLIA [id number] [address] [place] [address] [place] Urea nitrogen [Mass/Vol] 39 mg/dL High 7-21 [facility] Comment on above: Order Comment: Speci men Type: BLOOD SPECIMEN Ordering Facility: [facility] Address: [address] [place] [address] Performed By: #### B HB, #### [facility] CLIA [id number] [address] [place] [address] [place] ECG COMPLETEon 08-31-2023 ECG COMPLETE Ventricular Rate : 7 1 BPM Atrial Rate : 71 BPM P-R Interval : 166 ms QRS Duration : 80 ms Q-T Interval : 396 ms QTC Calculation(Bazett) : 431 ms Calculated P [place] : 82 degrees Calculated R [place] : 71 degrees Calculated T [place] : 48 degrees Sinus rhythm Normal ECG NO STEMI. 0752 Confirmed by MD MOISES, KASIE ([id number]), editorial director THERESA SEAY ([id number]) on 08/31/2023 1:24:15 PM NAME : AISLINN WHEELER PID : [id number] : 1960 Gender : Female Race : ORD : [id number] Procedure Date : Aug 31 2023 07:16:42 Edit Date : Aug 31 2023 13:24:16 Diagnosis: Sinus rhythm Normal ECG NO STEMI. 0752 Confirmed by MD DE LEON MICHAEL ([id number]), editorial director THERESA SEAY ([id number]) on 08/31/2023 1:24:15 PM Test Reason : Chest Pain Location : 402 : FVED fved05 Overread By : MD DE LEON MICHAEL Edited By : THERESA SEAY Referred By : , Acquired by : [id number], [facility] ECG COMPLETE Ventricular Rate : 8 8 BPM Atrial Rate : 88 BPM P-R Interval : 153 ms QRS Duration : 78 ms Q-T Interval : 370 ms QTC Calculation(Bazett) : 448 ms Calculated P [place] : 85 degrees Calculated R [place] : 69 degrees Calculated T [place] : 62 degrees Sinus rhythm Normal ECG NO STEMI. 0604 Confirmed by KASIE SANDOVAL MD ([id number]), editorial director THERESA SEAY ([id number]) on 08/31/2023 1:02:55 PM NAME : AISLINN WHEELER PID : [id number] : 1960 Gender : Female Race : ORD : [id number] Procedure Date : Aug 31 2023 04:17:52 Edit Date : Aug 31 2023 13:02:57 Diagnosis: Sinus rhythm Normal ECG NO STEMI. 0604 Confirmed by KASIE SANDOVAL MD ([id number]), editorial director THERESA SEAY ([id number]) on 08/31/2023 1:02:55 PM Test Reason : Arrhythmia Location : 402 : FVED fved05 Overread By : KASIE SANDOVAL MD Edited By : THERESA SEAY Referred By : , Acquired by : [id number], [facility] ED PROV NOTEon 08-31-2023 ED PROV NOTE HNO ID: [id number] Author: RAYNA RHODES PA-C Service: Emergency Medicine Author Type: Physician Building And Construction Manager Type: ED Provider Notes Filed: 08/31/2023 [...] left foot. Pt states she saw her microsystems engineer and was directed to come to the [...] rarely occurring (more content not included)... Normal [facility] FLUABV+SARS-CoV-2+RSV Pnl Re sp ADRIEL+probeon 08-31-2023 FLUABV+SARS-CoV-2+RS V Pnl Resp ADRIEL+probe COVID 19 RESULT: Not detected The method used is RT-PCR or an equivalent NAAT method. Reference Range(the expected result in uninfected individuals): Not detected INFLUENZA A PCR: Not detected INFLUENZA B PCR: Not detected RSV PCR: Not detected Normal [facility] Comment on above: Performed By: #### 9 5941-1 ####[facility] [id number] [place] [address] [place] Gas and Carbon monoxide pane l (BldV)on 08-31-2023 BASE DEFICIT, VENOUS -5 mmol/L Low -2-0 [facility] Comment on above: Order Comment: Speci men Type: VENOUS BLOOD SPECIMEN Ordering Facility: [facility] Address: [address] [place] [address] Performed By: #### 2 4344-4 #### [facility] CLIA [id number] [address] [place] [address] [place] Body temperature 100.04 [degF] Normal [facility] Comment on above: Order Comment: Speci men Type: VENOUS BLOOD SPECIMEN Ordering Facility: [facility] Address: [address] [place] [address] Performed By: #### 2 4344-4 #### [facility] CLIA [id number] [address] [place] [address] [place] Calcium.ionized (Bld) [Mass/Vol] 1.08 mmol/L Normal 1.08-1.30 [facility] Comment on above: Order Comment: Speci men Type: VENOUS BLOOD SPECIMEN Ordering Facility: [facility] Address: [address] [place] [address] Performed By: #### 2 4344-4 #### [facility] CLIA [id number] [address] [place] [address] [place] Calcium.ionized adjusted to pH 7.4 (BldA) [Moles/Vol] 1.06 mmol/L Low 1.08-1.30 [facility] Comment on above: Order Comment: Speci men Type: VENOUS BLOOD SPECIMEN Ordering Facility: [facility] Address: [address] [place] [address] Performed By: #### 2 4344-4 #### [facility] CLIA [id number] [address] [place] [address] [place] Carboxyhemoglobin (BldV) [Mass fraction] 3.8 % High 0.0-2.0 [facility] Comment on above: Order Comment: Speci men Type: VENOUS BLOOD SPECIMEN Ordering Facility: [facility] Address: [address] [place] [address] Result Comment: Carb oxyhemoglobin Reference Range for Smokers: 2.0-8.0% Performed By: #### 2 4344-4 #### [facility] CLIA [id number] [address] [place] [address] [place] Chloride [Moles/Vol] 106 mmol/L High 97-105 [facility] Comment on above: Order Comment: Speci men Type: VENOUS BLOOD SPECIMEN Ordering Facility: [facility] Address: [address] [place] [address] Performed By: #### 2 4344-4 #### [facility] CLIA [id number] [address] [place] [address] [place] CO2 (BldV) [Partial pressure] 35 mm[Hg] Low 42-55 [facility] Comment on above: Order Comment: Speci men Type: VENOUS BLOOD SPECIMEN Ordering Facility: [facility] Address: [address] [place] [address] Performed By: #### 2 4344-4 #### [facility] CLIA [id number] [address] [place] [address] [place] CO2 adjusted to patient's actual temperature (BldV) [Partial pressure] Normal [facility] Comment on above: Order Comment: Speci men Type: VENOUS BLOOD SPECIMEN Ordering Facility: [facility] Address: [address] [place] [address] Performed By: #### 2 4344-4 #### [facility] CLIA [id number] [place] [place] [address] [place] Glucose [Mass/Vol] 460 mg/dL High 60-105 [facility] Comment on above: Order Comment: Speci men Type: VENOUS BLOOD SPECIMEN Ordering Facility: [facility] Address: [address] [place] [address] Performed By: #### 2 4344-4 #### [facility] CLIA [id number] [address] [place] [address] [place] HCO3 (Bld) [Moles/Vol] 19 mmol/L Low 24-28 [facility] Comment on above: Order Comment: Speci men Type: VENOUS BLOOD SPECIMEN Ordering Facility: [facility] Address: [address] [place] [address] Performed By: #### 2 4344-4 #### [facility] CLIA [id number] [address] [place] [address] [place] Hematocrit (Bld) [Volume fraction] 29.7 % Low 36.0-46.0 [facility] Comment on above: Order Comment: Speci men Type: VENOUS BLOOD SPECIMEN Ordering Facility: [facility] Address: [address] [place] [address] Performed By: #### 2 4344-4 #### [facility] CLIA [id number] [address] [place] [address] [place] Hemoglobin (Bld) [Mass/Vol] 9.6 g/dL Low 11.5-15.5 [facility] Comment on above: Order Comment: Speci men Type: VENOUS BLOOD SPECIMEN Ordering Facility: [facility] Address: [address] [place] [address] Performed By: #### 2 4344-4 #### [facility] CLIA [id number] [place] [address] [place] Lactate [Moles/Vol] 1.1 mmol/L Normal 0.5-2.2 [facility] Comment on above: Order Comment: Speci men Type: VENOUS BLOOD SPECIMEN Ordering Facility: [facility] Address: [address] [place] [address] Performed By: #### 2 4344-4 #### [facility] CLIA [id number] [address] [place] [address] [place] Methemoglobin (Bld) [Mass fraction] 1.1 % Normal 0.0-1.5 [facility] Comment on above: Order Comment: Speci men Type: VENOUS BLOOD SPECIMEN Ordering Facility: [facility] Address: [address] [place] [address] Performed By: #### 2 4344-4 #### [facility] CLIA [id number] [address] [place] [address] [place] O2 THERAPY RA=Room Air Normal [facility] Comment on above: Order Comment: Speci men Type: VENOUS BLOOD SPECIMEN Ordering Facility: [facility] Address: [address] [place] [address] Performed By: #### 2 4344-4 #### [facility] CLIA [id number] [address] [place] [address] [place] Oxygen (BldV) [Partial pressure] 118 mm[Hg] High 35-45 [facility] Comment on above: Order Comment: Speci men Type: VENOUS BLOOD SPECIMEN Ordering Facility: [facility] Address: [address] [place] [address] Performed By: #### 2 4344-4 #### [facility] CLIA [id number] [address] [place] [address] [place] Oxygen adjusted to patient's actual temperature (BldV) [Partial pressure] Normal [facility] Comment on above: Order Comment: Speci men Type: VENOUS BLOOD SPECIMEN Ordering Facility: [facility] Address: [address] [place] [address] Performed By: #### 2 4344-4 #### [facility] CLIA [id number] [address] [place] [address] [place] Oxygen saturation in Venous blood 99 % High 60-85 [facility] Comment on above: Order Comment: Speci men Type: VENOUS BLOOD SPECIMEN Ordering Facility: [facility] Address: [address] [place] [address] Performed By: #### 2 4344-4 #### [facility] CLIA [id number] [address] [place] [address] [place] Oxyhemoglobin (BldV) [Mass fraction] 94 % High 60-85 [facility] Comment on above: Order Comment: Speci men Type: VENOUS BLOOD SPECIMEN Ordering Facility: [facility] Address: [address] [place] [address] Performed By: #### 2 4344-4 #### [facility] CLIA [id number] [address] [place] [address] [place] pH (BldV) 7.37 [pH] Normal 7.32-7.42 [facility] Comment on above: Order Comment: Speci men Type: VENOUS BLOOD SPECIMEN Ordering Facility: [facility] Address: [address] [place] [address] Performed By: #### 2 4344-4 #### [facility] CLIA [id number] [address] [place] [address] [place] pH adjusted to patient's actual temperature (BldV) Normal [facility] Comment on above: Order Comment: Speci men Type: VENOUS BLOOD SPECIMEN Ordering Facility: [facility] Address: [address] [place] [address] Performed By: #### 2 4344-4 #### [facility] CLIA [id number] [address] [place] [address] [place] Potassium [Moles/Vol] 5.3 mmol/L High 3.5-5.0 [facility] Comment on above: Order Comment: Speci men Type: VENOUS BLOOD SPECIMEN Ordering Facility: [facility] Address: [address] [place] [address] Performed By: #### 2 4344-4 #### [facility] CLIA [id number] [address] [place] [address] [place] Sodium [Moles/Vol] 133 mmol/L Low 136-144 [facility] Comment on above: Order Comment: Speci men Type: VENOUS BLOOD SPECIMEN Ordering Facility: [facility] Address: [place] [address] Performed By: #### 2 4344-4 #### [facility] [place] [id number] [address] [place] [address] [place] HISTORY PHYSICALon HISTORY PHYSICAL HNO ID: [id number] Author: ANTHONY BARROW MD Service: Hospital Medicine [...] left foot ulcer that patient was seen microsystems engineer as outpatient for and advised her to [...] nts 08/31/23 1115 activity - mobilize patient (ma,oh) VTE Prophylaxis: VTE prophylaxis appropriate SIGNATURE: Anthony Barrow MD PATIENT NAME: Aislinn Wheeler DATE: August 31, 2023 TIME: 11:03 AM PAGER/CONTACT #: Normal [facility] KETONES/ACETONE/BHBon 2023 Beta hydroxybutyrate [Moles/Vol] 0.50 mmol/L High <0.28 [facility] Comment on above: Order Comment: Speci men Type: BLOOD SPECIMEN [facility] [facility] Address: [address] [place] [address] Performed By: #### B [place], 39673-3 #### [facility] CLIA [id number] [address] [place] [address] [place] POTASSIUM BLDon 08-31-2023 Potassium [Moles/Vol] 4.6 mmol/L Normal 3.7-5.1 [facility] Comment on above: Order Comment: Speci men Type: BLOOD SPECIMEN Ordering Facility: [facility] Address: [address] [place] [address] Performed By: #### B HB, 87144-6 #### [facility] CLIA [id number] [address] [place] [address] [place] SEPSIS LACTATEon 08-31-2023 Lactate [Moles/Vol] 1.2 mmol/L Normal 0.0-2.0 [facility] Comment on above: Order Comment: Speci men Type: BLOOD SPECIMEN Ordering Facility: [facility] Address: [address] [place] [address] Performed By: #### B HB, 07753-2 #### [facility] CLIA [id number] [address] [place] [address] [place] Urinalysis complete panel (U )on 08-31-2023 Bacteria LM.HPF (Urine sed) [#/Area] Many Abnormal None Seen [facility] Comment on above: Order Comment: Speci men Type: BLOOD SPECIMEN Ordering Facility: [facility] Address: [address] [place] [address] Performed By: #### B HB, #### [facility] CLIA [id number] [place] [address] [place] Bilirubin Ql (U) Negative Normal Negative [facility] Comment on above: Order Comment: Speci men Type: BLOOD SPECIMEN Ordering Facility: [facility] Address: [address] [place] [address] Performed By: #### B HB, #### [facility] CLIA [id number] [address] [place] [address] [place] Clarity (Unsp spec) Turbid Abnormal Clear [facility] Comment on above: Order Comment: Speci men Type: BLOOD SPECIMEN Ordering Facility: [facility] Address: [address] [place] [address] Performed By: #### B HB, #### [facility] CLIA [id number] [address] [place] [address] [place] Color (U) Light Yellow Normal Yellow [facility] Comment on above: Order Comment: Speci men Type: BLOOD SPECIMEN Ordering Facility: [facility] Address: [address] [place] [address] Performed By: #### B HB, #### [facility] CLIA [id number] [address] [place] [address] [place] Glucose Test strip (U) [Mass/Vol] 4+ Abnormal Trace, Negative [facility] Comment on above: Order Comment: Speci men Type: BLOOD SPECIMEN Ordering Facility: [facility] Address: [address] [place] [address] Performed By: #### B HB, #### [facility] CLIA [id number] [address] [place] [address] [place] Hemoglobin Ql (U) Trace Normal Negative, Trace [facility] Comment on above: Order Comment: Speci men Type: BLOOD SPECIMEN Ordering Facility: [facility] Address: [address] [place] [address] Performed By: #### B HB, 48970-7 #### [facility] CLIA [id number] [address] [place] [address] [place] Ketones Ql (U) Negative Normal Negative, Trace [facility] Comment on above: Order Comment: Speci men Type: BLOOD SPECIMEN Ordering Facility: [facility] Address: [address] [place] [address] Performed By: #### B HB, 77206-6 #### [facility] CLIA [id number] [address] [place] [address] [place] Leukocyte esterase Test strip Ql (U) 500 Liam/uL Abnormal Negative, 25 Liam/uL [facility] Comment on above: Order Comment: Speci men Type: BLOOD SPECIMEN Ordering Facility: [facility] Address: [address] [place] [address] Performed By: #### B HB, #### [facility] CLIA [id number] [address] [place] [address] [place] Nitrite Ql (U) Negative Normal Negative [facility] Comment on above: Order Comment: Speci men Type: BLOOD SPECIMEN Ordering Facility: [facility] Address: [address] [place] [address] Performed By: #### B HB, #### [facility] CLIA [id number] [address] [place] [address] [place] pH (U) 6.0 [pH] Normal 5.0-8.0 [facility] Comment on above: Order Comment: Speci men Type: BLOOD SPECIMEN Ordering Facility: [facility] Address: [address] [place] [address] Performed By: #### B HB, 36151-3 #### [facility] CLIA [id number] [address] [place] [address] [place] Protein (U) [Mass/Vol] 1+ Abnormal Trace, Negative [facility] Comment on above: Order Comment: Speci men Type: BLOOD SPECIMEN Ordering Facility: [facility] Address: [address] [place] [address] Performed By: #### B HB, #### [facility] CLIA [id number] [address] [place] [address] [place] RBC LM.HPF (Urine sed) [#/Area] 3-5 /HPF Abnormal 0-3 /HPF [facility] Comment on above: Order Comment: Speci men Type: BLOOD SPECIMEN Ordering Facility: [facility] Address: [address] [place] [address] Performed By: #### B HB, 59095-4 #### [facility] CLIA [id number] [address] [place] [address] [place] Specific gravity (U) [Rel density] 1.017 Normal 1.005-1.030 [facility] Comment on above: Order Comment: Speci men Type: BLOOD SPECIMEN Ordering Facility: [facility] Address: [address] [place] [address] Performed By: #### B HB, #### [facility] CLIA [id number] [address] [place] [address] [place] Urobilinogen Ql (U) Negative Normal Negative [facility] Comment on above: Order Comment: Speci men Type: BLOOD SPECIMEN Ordering Facility: [facility] Address: [address] [place] [address] Performed By: #### B HB, #### [facility] CLIA [id number] [address] [place] [address] [place] WBC LM.HPF (Urine sed) [#/Area] /[HPF] Abnormal 0-5 /HPF [facility] Comment on above: Order Comment: Speci men Type: BLOOD SPECIMEN Ordering Facility: [facility] Address: [address] [place] [address] Performed By: #### B HB, #### [facility] CLIA [id number] [address] [place] [address] [place] XR CHEST 1V FRONTAL [...] Fatigue and malaise, Fatigue and malaise (accession [id number]), Osteomyelitis (accession [id number]) MQ: XC1_5 Comparison: CT 01/17/2021, radiograph 01/17/2021 [...] performed for increased sensitivity, as clinically warranted. Report Manager: GUILLE Transcribe Date/Time: Aug 31 2023 4:46A Dictated by : TAURUS MORTON MD This examination was interpreted and the report reviewed and electronically signed by: TAURUS MORTON MD on Aug 31 2023 4:51AM EST [id number] Normal [facility] XR FOOT 3V AP/LAT/OBL LTon 0 08-31-2023 [...] Fatigue and malaise, Fatigue and malaise (accession [id number]), Osteomyelitis (accession [id number]) MQ: XC1_5 Comparison: CT 01/17/2021, radiograph 01/17/2021 [...] performed for increased sensitivity, as clinically warranted. Report Manager: GUILLE Transcribe Date/Time: Aug 31 2023 4:46A Dictated by : TAURUS MORTON MD This examination was interpreted and the report reviewed and electronically signed by: TAURUS MORTON MD on Aug 31 2023 4:51AM EST [id number] Normal [facility] Benzodiazepines Screen Ql (U )on 08-09-2023 Benzodiazepines Ql (U) Negative Normal NEG [facility] Comment on above: Result Comment: Lenny odiazepines screening cut off value = 200 ng/mL This report is intended for use in clinical monitoring or management of patients. Performed By: #### 1 4316-4 #### [facility] ([id number]) [address] [place] [address], [place] [address] CCL GENERIC ORDERon 08-09-20 23 TEST NAME UQNTPP URINE PAIN PA VEGA QUANT Normal [facility] Comment on above: Result Comment: Wesley ected on 08/09 AT 1743: Previously reported as UQNTPP Performed By: #### C GO #### [facility] ([id number]) [address] [place] [address], [place] [address] TEST RESULT See Below Normal [facility] Comment on above: Result Comment: NOTE TEST RESULT FLAG UNIT REF.RANGE ----- Specimen Validity Quality See below Specimen quality results within acceptable limits Specimen Validity Creatinine 31.8 mg/dL 20.0-300.0 Specimen Validity PH 5.4 4.5-8.0 Specimen Validity Specific [place] 1.006 1.003-1.035 Specimen Validity Oxidants <38 mg/L [...] carboxylic acid (THCA) is a metabolite of ytzuo-9-yylqnbjrsjwarltljntz which is the main active component of marijuana. Fentanyl, Urine <6 ng/mL <6 Buprenorphine, Ur <20 ng/mL <20 Methadone Urine <16 ng/mL <16 Methadone metabolite Urine <6 ng/mL <6 EDDP is a metabolite of methadone. Note See Below This test is for medical use only. This test was developed and its performance characteristics determined by [facility] [place] ([facility]). It has not been cleared or approved by the FDA. [facility] is regulated under CLIA as qualified to perform high-complexity testing. This test is used for clinical purposes. It should not be regarded as investigational or for research. URINE PAIN PANEL QUANT Test Performed By: [facility] [address] [place] [address] Hospital Education Coordinator: Oswald Munguia III, M.D. CLIA #[id number] Performed By: #### C GO #### [facility] ([id number]) [address] [place] [address], [place] [address] Operative Reporton Operative Report [id number]#1.00T IFF Normal [facility] Pathology Noteon 08-07-2023 Pathology Note [id number]#1.00 TIFF Normal [facility] ED Note-Physicianon 06-29-20 ED Note-Physician [id number]#1.00T IFF Normal [facility] Patient Letter FTMCon 2022 Patient Letter [facility] (Inserted Image. Grecia ble to display) June 28, 2023 AISLINN WHEELER [address] [place] [id number] : 1960 Dear Aislinn, You missed your [...] any future cancellations. Sincerely, [facility] [address] [facility], [place] [address] Pt called and RS'd. Normal [facility] Basic metabolic 2000 panelon 06-23-2023 Anion gap [Moles/Vol] 9 mmol/L Normal 9-18 [facility] Comment on above: Order Comment: Speci men Type: BLOOD SPECIMEN Ordering Facility: [facility] Address: [address] [place] [address] Performed By: #### B HB, #### [facility] CLIA [id number] [address] [place] [address] [place] Calcium [Mass/Vol] 7.3 mg/dL Low 8.5-10.2 [facility] Comment on above: Order Comment: Speci men Type: BLOOD SPECIMEN Ordering Facility: [facility] Address: [address] [place] [address] Performed By: #### B HB, #### [facility] CLIA [id number] [address] [place] [address] [place] Chloride [Moles/Vol] 110 mmol/L High 97-105 [facility] Comment on above: Order Comment: Speci men Type: BLOOD SPECIMEN Ordering Facility: [facility] Address: [address] [place] [address] Performed By: #### B HB, #### [facility] CLIA [id number] [address] [place] [address] [place] CO2 [Moles/Vol] 19 mmol/L Low 22-30 [facility] Comment on above: Order Comment: Speci men Type: BLOOD SPECIMEN Ordering Facility: [facility] Address: [address] [place] [address] Performed By: #### B HB, #### [facility] CLIA [id number] [address] [place] [address] [place] Creatinine [Mass/Vol] 1.39 mg/dL High 0.58-0.96 [facility] Comment on above: Order Comment: Speci men Type: BLOOD SPECIMEN Ordering Facility: [facility] Address: [address] [place] [address] Performed By: #### B HB, #### [facility] CLIA [id number] [address] [place] [address] [place] Creatinine and Glomerular filtration rate.predicted panel (S/P/Bld) 42 mL/min/1.73m??? Low >=60 [facility] Comment on above: Order Comment: Speci men Type: BLOOD SPECIMEN Ordering Facility: [facility] Address: [address] [place] [address] Result Comment: Donna mated Glomerular Filtration Rate [...] GFR. Performed By: #### B HB, #### [facility] CLIA [id number] [address] [place] [address] [place] Glucose [Mass/Vol] 157 mg/dL High 74-99 [facility] Comment on above: Order Comment: [place] Type: BLOOD SPECIMEN Ordering Facility: [facility] Address: [address] [place] [address] Result Comment: The [place] Diabetes Association (ADA) provides guidance for cutoff [...] Standards of Medical Care in Diabetes 2016, [place] [employer]. Diabetes Care. 2016.39(Suppl 1). Performed By: #### B HB, 32379-6 #### [facility] CLIA [id number] [address] [place] [address] [place] Potassium [Moles/Vol] 5.1 mmol/L Normal 3.7-5.1 [facility] Comment on above: Order Comment: [place] Type: BLOOD SPECIMEN Ordering Facility: [facility] Address: [address] [place] [address] Performed By: #### B HB, 89934-8 #### [facility] CLIA [id number] [address] [place] [address] [place] Sodium [Moles/Vol] 138 mmol/L Normal 136-144 [facility] Comment on above: Order Comment: [place] Type: BLOOD SPECIMEN Ordering Facility: [facility] Address: [address] [place] [address] Performed By: #### B HB, 53852-5 #### [facility] CLIA [id number] [address] [place] [address] [place] Urea nitrogen [Mass/Vol] 21 mg/dL Normal 7-21 [facility] Comment on above: Order Comment: [place] Type: BLOOD SPECIMEN Ordering Facility: [facility] Address: [address] [place] [address] Performed By: #### B HB, #### [facility] CLIA [id number] [address] [place] [address] [place] CBC panel Auto (Bld)on 06-23 Erythrocyte distribution width (RBC) [Ratio] 14.4 % Normal 11.5-15.0 [facility] Comment on above: Order Comment: Speci men Type: BLOOD SPECIMEN Ordering Facility: [facility] Address: [address] [place] [address] Performed By: #### B HB, #### [facility] CLIA [id number] [address] [place] [address] Hematocrit (Bld) [Volume fraction] 28.5 % Low 36.0-46.0 [facility] Comment on above: Order Comment: Speci men Type: BLOOD SPECIMEN Ordering Facility: [facility] Address: [address] [place] [address] Performed By: #### B HB, #### [facility] CLIA [id number] [address] [place] [address] [place] Hemoglobin (Bld) [Mass/Vol] 9.0 g/dL Low 11.5-15.5 [facility] Comment on above: Order Comment: Speci men Type: BLOOD SPECIMEN Ordering Facility: [facility] Address: [address] [place] [address] Performed By: #### B HB, #### [facility] CLIA [id number] [address] [place] [address] [place] MCH (RBC) [Entitic mass] 25.2 pg Low 26.0-34.0 [facility] Comment on above: Order Comment: Speci men Type: BLOOD SPECIMEN Ordering Facility: [facility] Address: [address] [place] [address] Performed By: #### B HB, #### [facility] CLIA [id number] [address] [place] [address] [place] MCHC (RBC) [Mass/Vol] 31.6 g/dL Normal 30.5-36.0 [facility] Comment on above: Order Comment: Speci men Type: BLOOD SPECIMEN Ordering Facility: [facility] Address: [address] [place] [address] Performed By: #### B HB, #### [facility] CLIA [id number] [address] [place] [address] [place] MCV (RBC) [Entitic vol] 79.8 fL Low 80.0-100.0 [facility] Comment on above: Order Comment: Speci men Type: BLOOD SPECIMEN Ordering Facility: [facility] Address: [address] [place] [address] Performed By: #### B HB, #### [facility] CLIA [id number] [address] [place] [address] [place] Nucleated RBC (Bld) [#/Vol] 10*3/uL Normal <0.01 [facility] Comment on above: Order Comment: Speci men Type: BLOOD SPECIMEN Ordering Facility: [facility] Address: [address] [place] [address] Performed By: #### B HB, #### [facility] CLIA [id number] [address] [place] [address] [place] Platelet mean volume (Bld) [Entitic vol] 10.6 fL Normal 9.0-12.7 [facility] Comment on above: Order Comment: Speci men Type: BLOOD SPECIMEN Ordering Facility: [facility] Address: [address] [place] [address] Performed By: #### B HB, #### [facility] CLIA [id number] [address] [place] [address] [place] Platelets (Bld) [#/Vol] 251 10*3/uL Normal 150-400 [facility] Comment on above: Order Comment: Speci men Type: BLOOD SPECIMEN Ordering Facility: [facility] Address: [address] [place] [address] Performed By: #### B HB, #### [facility] CLIA [id number] [place] [place] [address] [place] RBC (Bld) [#/Vol] 3.57 10*6/uL Low 3.90-5.20 [facility] Comment on above: Order Comment: Speci men Type: BLOOD SPECIMEN Ordering Facility: [facility] Address: [address] [place] [address] Performed By: #### B HB, 95300-9 #### [facility] CLIA [id number] [address] [place] [address] [place] WBC (Bld) [#/Vol] 7.47 10*3/uL Normal 3.70-11.00 [facility] Comment on above: Order Comment: Speci men Type: BLOOD SPECIMEN Ordering Facility: [facility] Address: [address] [place] [address] Performed By: #### B HB, 28073-1 #### [facility] CLIA [id number] [address] [place] [address] OF [facility] CNDSon 06-23-2023 CNDS HNO ID: [id number] Author: Annie Martinez APRN.MANAGER UTILIZATION MANAGEMENT Service: Urology Author Type: Nurse Practitioner Type: [...] this patient's care. Taurus Ballard MD The [address] [address] or ([phone] CC-CARE C O N F I D E N T I A L I N F O R M A T I O N ------ [facility] DOCUMENT DISCHARGE SUMMARY Patient Name: [...] Your Medications These medications were sent to [facility] [address] [place] [address] Hours: Monday-Monday: 7am-7pm, Sat: 9am-1pm acetaminophen 325 mg tablet docusate sodium 100 mg capsule Future Appointments: No future appointments. Electronically SIGNED by Licensed Independent Practitioner: Annie Martinez APRN.[facility] 06-23-2023 [facility] AISLINN WHEELER ([id number]) 1960 F Date Time Provider Department 06/23/23 [facility] During your visit today, we recorded the following information about you: Heidy Garcia RN 06/23/2023 9:05 AM Signed Patient had left robotic partial nephrectomy by Dr. Ballard on 06/22/2023 Will call for surgical follow up once discharged Heidy Garcia RN 06/26/2023 10:45 AM Signed Patient phone number non functioning. Active in [facility], will send message inquiring on how she's feeling post-operatively. Vonnie Wilder RN 06/27/2023 10:15 AM Signed Spoke with grand daughter, Lola, as this office is unable to reach patient for post op call. Lola reports, that patient's phone is turned off, and she does not know how to use [employer]. Lola reports that patient went to [place] [facility] due to excruciating pain -was given [...] Encounter Status:Closed by HEIDY GARCIA on 06/23/23 [facility] NURSING PROGon 06-23-2023 NURSING PROG HNO ID: [id number] Author: Sweta Cordova RN Service: ? Author [...] Annie Martinez, awaiting PRN order of hydralazine. [facility] ANES POSTPROC EVALon 023 ANES POSTPROC EVAL HNO ID: [id number] Author: Rikki Jhaveri MD Service: Anesthesiology Author Type: Anesthesiologist Type: Anesthesia Postprocedure Evaluation Filed: 06/22/2023 2:18 PM Note Text: POST ANESTHESIA EVALUATION NOTE : 1960 Procedure Summary Date: 06/22/23 Room / Location: [place] [address] / OR Anesthesia Start: 1107 Anesthesia Stop: [...] June 22, 2023 TIME: 2:18 PM CSN: [id number] [facility] ANES PRE-OPon 06-22-2023 ANES PRE-OP HNO ID: [id number] Author: Rikki Jhaveri MD Service: Anesthesiology Author [...] (HCC) -RENAL (+) ANATOLIY (acute kidney injury) ([facility]) (+) Stage 3a chronic kidney disease ([facility]) NEURO-PSYCH (+) History of TIA (transient ischemic [...] June 22, 2023 TIME: 9:54 AM CSN: [id number] Normal [facility] Basic metabolic 2000 panelon 06-22-2023 Anion gap [Moles/Vol] 7 mmol/L Low 9-18 [facility] Comment on above: Order Comment: Speci reinier Type: BLOOD SPECIMEN Ordering Facility: [facility] Address: [address] [place] [address] Performed By: #### 2 4321-2 #### [facility] CLIA [id number] [address] [place] [address] [place] Calcium [Mass/Vol] 7.5 mg/dL Low 8.5-10.2 [facility] Comment on above: Order Comment: Speci men Type: BLOOD SPECIMEN Ordering Facility: [facility] Address: [address] [place] [address] Performed By: #### 2 4321-2 #### [facility] CLIA [id number] [address] [place] [address] [place] Chloride [Moles/Vol] 108 mmol/L High 97-105 [facility] Comment on above: Order Comment: Speci men Type: BLOOD SPECIMEN Ordering Facility: [facility] Address: [address] [place] [address] Performed By: #### 2 4321-2 #### [facility] CLIA [id number] [address] [place] [address] [place] CO2 [Moles/Vol] 19 mmol/L Low 22-30 [facility] Comment on above: Order Comment: Speci men Type: BLOOD SPECIMEN Ordering Facility: [facility] Address: [address] [place] [address] Performed By: #### 2 4321-2 #### [facility] CLIA [id number] [address] [place] [address] [place] Creatinine [Mass/Vol] 1.57 mg/dL High 0.58-0.96 [facility] Comment on above: Order Comment: Speci men Type: BLOOD SPECIMEN Ordering Facility: [facility] Address: [address] [place] [address] Performed By: #### 2 4321-2 #### [facility] CLIA [id number] [address] [place] [address] [place] Creatinine and Glomerular filtration rate.predicted panel (S/P/Bld) 36 mL/min/1.73m??? Low >=60 [facility] Comment on above: Order Comment: Speci men Type: BLOOD SPECIMEN Ordering Facility: [facility] Address: [address] [place] [address] Result Comment: Donna mated Glomerular Filtration Rate [...] GFR. Performed By: #### 2 4321-2 #### [facility] [facility] CLIA [id number] [address] [place] [address] [place] Glucose [Mass/Vol] 275 mg/dL High 74-99 [facility] Comment on above: Order Comment: [place] Type: BLOOD SPECIMEN Ordering Facility: [facility] Address: [address] [place] [address] Result Comment: The [place] Diabetes Association (ADA) provides guidance for cutoff [...] Standards of Medical Care in Diabetes 2016, [place] [employer] Association. Diabetes Care. 2016.39(Suppl 1). Performed By: #### 2 4321-2 #### [facility] CLIA [id number] [address] [place] [address] [place] Potassium [Moles/Vol] 5.3 mmol/L High 3.7-5.1 [facility] Comment on above: Order Comment: [place] Type: BLOOD SPECIMEN Ordering Facility: [facility] Address: [address] [place] [address] Performed By: #### 2 4321-2 #### [facility] CLIA [id number] [address] [place] [address] [place] Sodium [Moles/Vol] 134 mmol/L Low 136-144 [facility] Comment on above: Order Comment: [place] Type: BLOOD SPECIMEN Ordering Facility: [facility] Address: [address] [place] [address] Performed By: #### 2 4321-2 #### [facility] CLIA [id number] [address] [place] [address] [place] Urea nitrogen [Mass/Vol] 26 mg/dL High 7-21 [facility] Comment on above: Order Comment: Speci men Type: BLOOD SPECIMEN Ordering Facility: [facility] Address: [address] [place] [address] Performed By: #### 2 4321-2 #### [facility] CLIA [id number] [address] [place] [address] [place] CBC panel Auto (Bld)on 06-22 Erythrocyte distribution width (RBC) [Ratio] 14.3 % Normal 11.5-15.0 [facility] Comment on above: Order Comment: Speci men Type: BLOOD SPECIMEN Ordering Facility: [facility] Address: [address] [place] [address] Performed By: #### 5 8410-2 #### [facility] CLIA [id number] [address] [place] [address] [place] Hematocrit (Bld) [Volume fraction] 27.8 % Low 36.0-46.0 [facility] Comment on above: Order Comment: Speci men Type: BLOOD SPECIMEN Ordering Facility: [facility] Address: [address] [place] [address] Performed By: #### 5 8410-2 #### [facility] CLIA [id number] [address] [place] [address] [place] Hemoglobin (Bld) [Mass/Vol] 8.9 g/dL Low 11.5-15.5 [facility] Comment on above: Order Comment: Speci men Type: BLOOD SPECIMEN Ordering Facility: [facility] Address: [address] [place] [address] Performed By: #### 5 8410-2 #### [facility] CLIA [id number] [address] [place] [address] [place] MCH (RBC) [Entitic mass] 25.3 pg Low 26.0-34.0 [facility] Comment on above: Order Comment: Speci men Type: BLOOD SPECIMEN Ordering Facility: [facility] Address: [address] [place] [address] Performed By: #### 5 8410-2 #### [facility] CLIA [id number] [address] [place] [address] [place] MCHC (RBC) [Mass/Vol] 32.0 g/dL Normal 30.5-36.0 [facility] Comment on above: Order Comment: Speci men Type: BLOOD SPECIMEN Ordering Facility: [facility] Address: [address] [place] [address] Performed By: #### 5 8410-2 #### [facility] CLIA [id number] [address] [place] [address] [place] MCV (RBC) [Entitic vol] 79.0 fL Low 80.0-100.0 [facility] Comment on above: Order Comment: Speci men Type: BLOOD SPECIMEN Ordering Facility: [facility] Address: [address] [place] [address] Performed By: #### 5 8410-2 #### [facility] CLIA [id number] [address] [place] [address] [place] Nucleated RBC (Bld) [#/Vol] 10*3/uL Normal <0.01 [facility] Comment on above: Order Comment: Speci men Type: BLOOD SPECIMEN Ordering Facility: [facility] Address: [address] [place] [address] Performed By: #### 5 8410-2 #### [facility] CLIA [id number] [address] [place] [address] [place] Platelet mean volume (Bld) [Entitic vol] 10.8 fL Normal 9.0-12.7 [facility] Comment on above: Order Comment: Speci men Type: BLOOD SPECIMEN Ordering Facility: [facility] Address: [address] [place] [address] Performed By: #### 5 8410-2 #### [facility] CLIA [id number] [address] [place] [address] [place] Platelets (Bld) [#/Vol] 230 10*3/uL Normal 150-400 [facility] Comment on above: Order Comment: Speci men Type: BLOOD SPECIMEN Ordering Facility: [facility] Address: [address] [place] [address] Performed By: #### 5 8410-2 #### [facility] CLIA [id number] [address] [place] [address] [place] RBC (Bld) [#/Vol] 3.52 10*6/uL Low 3.90-5.20 [facility] Comment on above: Order Comment: Speci men Type: BLOOD SPECIMEN Ordering Facility: [facility] Address: [address] [place] [address] Performed By: #### 5 8410-2 #### [facility] CLIA [id number] [place] [address] [place] WBC (Bld) [#/Vol] 6.04 10*3/uL Normal 3.70-11.00 [facility] Comment on above: Order Comment: Speci men Type: BLOOD SPECIMEN Ordering Facility: [facility] Address: [address] [place] [address] Performed By: #### 5 8410-2 #### [facility] CLIA [id number] [address] [place] [address] OF [facility] NURSING PROGon 06-22-2023 NURSING PROG HNO ID: [id number] Author: Afia Lanier RN Service: Nursing Author Type: Registered Nurse Type: Nursing Progress Note Filed: 06/22/2023 5:56 PM Note Text: Transfer Note: PATIENT NAME: Aislinn Wheeler Patient Location: [place] [address] [address] Room: [place] [address] Patient transferred into room/unit [facility] in stable condition. Actions taken: No futher actions taken at this time. Will continue to monitor and check with patient. [facility] NURSING PROG HNO ID: [id number] Author: Linda Nicholson RN Service: Nursing Author Type: Registered Nurse Type: Nursing Progress Note Filed: 06/22/2023 12:20 PM Note Text: pre-incision juan area noted to have redness and inflamed, prior to prepping and putting chaves in. [facility] NURSING PROG HNO ID: [id number] Author: Elva Joy, REY Service: Nursing Author [...] (RECOMMENDATION): None Electronically Signed By: Elva Joy [facility] OPERATIVE NOon 06-22-2023 OPERATIVE NO HNO ID: [id number] Author: Taurus Ballard MD Service: Urology Author Type: Physician Type: Operative Report Filed: 06/22/2023 1:48 PM Note Text: OPERATIVE/PROCEDURE REPORT LOG ID: [id number] Surgery/Procedure Date: 06/22/2023 Incision/Procedure Start Time: 11:49 AM Incision Close/Procedure End Time: 1:55 PM Surgeon(s)/Proceduralis t(s) and Building And Construction Manager(s): Surgeon(s) and Role: * Taurus Ballard MD - Primary * Jeet De La Fuente MD - Resident - Assisting Physician Building And Construction Manager: Camden Rios PA-C; Alicia Harmon PA-C [...] superior to the umbilicus a 12 mm early childhood teacher assistant port was placed. At this point [...] a specimen bag out of the supraumbilical early childhood teacher assistant port. This port was closed with [...] None Drains: 10 flat JUAN drain, 16 Albanian Chaves catheter Complications: None Accidental Punctures/Lacerations: None I/primary surgeon/proceduralist performed the procedure with assistance. SIGNATURE: Taurus Ballard MD PATIENT NAME: Aislinn Wheeler DATE: June 22, 2023 TIME: 1:42 PM PAGER/CONTACT #: [facility] SURGICAL PATHOLOGYon 023 CASE REPORT [facility] Comment on above: Order Comment: Speci men Type: BLOOD SPECIMEN Ordering Facility: [facility] Address: [address] [place] [address] Result Comment: Surg ical Pathology Report Case: [id number] Authorizing Provider: Taurus Ballard MD Collected: 06/22/2023 01:38 PM Ordering Location: [facility] Received: 06/22/2023 03:16 PM Operating Room Pathologist: Barron Cheema MD Specimen: KIDNEY PARTIAL NEPHRECTOMY LEFT, left renal neoplasm Performed By: #### Kimberlyn FISCHER, 07880-6 #### [facility] CLIA [id number] [address] CLINICAL HISTORY Normal [facility] Comment on above: Order Comment: Speci men Type: BLOOD SPECIMEN Ordering Facility: [facility] Address: [address] [place] [address] Result Comment: Pre- op diagnosis: 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 - 7.2 cm gross greatest dimension of tissue specimen (defer to clinical/imaging for overall lesion size). Performed By: #### [place], 00696-6 #### [facility] CLIA [id number] [address] FINAL PERFORMING LAB Normal [facility] Comment on above: Order Comment: [place] Type: BLOOD SPECIMEN Ordering Facility: [facility] Address: [address] [place] [address] Result Comment: Diag nostic interpretation performed at [facility], [address] [place] [address] CLIA# [id number] Hospital Education Coordinator: Oswald Munguia M.D. Performed By: #### [place], [address]-6 #### [facility] CLIA [id number] [address] GROSS DESCRIPTION Normal [facility] Comment on above: Order Comment: [place] Type: BLOOD SPECIMEN Ordering Facility: [facility] Address: [address] [place] [address] Result Comment: Emre MCGRATH PARTIAL NEPHRECTOMY LEFT Received in formalin designated left renal neoplasm is a segment of chilel-purple membranous tissue which weighs 39 g and measures 7.2 x 5.5 x 3.5 cm. There is cautery present at the margin which is inked orange. The surfaces are smooth with no masses or papillations grossly appreciated. Sectioning does not reveal any masses. Telecommunication Operator sections are submitted in 5 cassettes. BF June 23, 2023 9:00 AM Gross examination performed at [facility], [address] [place] [address] CLIA # [id number] Performed By: #### Kimberlyn , 59687-9 #### [facility] CLIA [id number] [address] [place] [id number] [facility] CNPNon 06-15-2023 CNPN Telephone (URR) AISLINN WHEELER ([id number]) 1960 F Date Time Provider Department 06/15/23 VONNIE WILDER [facility] During your visit today, we [...] Encounter Status:Closed by VONNIE WILDER on 06/15/23 [facility] [place] 06-12-2023 CNPN Telephone (URFHR) AISLINN WHEELER ([id number]) 1960 F Date Time Provider Department 06/12/23 [facility] During your visit today, we recorded the following information about you: Liliana Velasco RN 06/12/2023 8:56 AM Signed Received call from RN at Dr. Sara Augustine ([phone]) office (endocrinology) regarding clearance for upcoming surgery [...] Sara Dai CNP received and scanned into Board[employer] to view. Allergies As of Date: 06/12/2023 [...] Encounter Status:Closed by LILIANA VELASCO on 06/12/23 [facility] C Urineon 06-10-2023 Bacteria identified [...] Locations R1: This test was performed at: [facility], [address] [place] [address], [address]- , , [facility] Comment on above: Performed By: #### 2 599503 #### [facility] [address] [place] [address] [facility] 06-09-2023 [facility] Telephone ([facility]) AISLINN WHEELER ([id number]) 1960 F Date Time Provider Department 06/09/23 [facility] During your visit today, we recorded the following information about you: Derik Fernandez 06/09/2023 3:31 PM Signed Lvm on patient's phone inquiring if she kept her email marketing 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 appointment on 06/08 for clearance for her surgery on 06/22 Left message with office of Sara Augustine ([phone]) where patient's appointment was scheduled asking for [...] Encounter Status:Closed by DERIK FERNANDEZ on 06/09/23 [facility] Glucose - FINGER STICKon Glucose [Mass/Vol] 436 mg/dL 5 O'Clock Records Other Consent for Procedure/Surger yon 05-22-2023 Consent for Procedure/Surgery [id number]#1.0 0CD:127 Normal [facility] Consent for Treatmenton Consent for Treatment [id number]#1.00C D:127 Normal [facility] Inpatient Patient Summaryon 05-22-2023 Inpatient Patient Summary [address] [address] Clinical Summary Person Information Name: AISLINN WHEELER Age: 63 Years : 1960 Sex: Female PCP: AGUSTO OLMSTEAD CNP Marital Status: Race: White Ethnicity: Non- or Language: Beninese Visit Id: Visit Reason: MIXED URINARY INCONTINENCE Speciality: Acuity: Enc Type: Outpatient Med Service: Surgery Arrival: 05/22/2023 09:41:57 Discharge: Dispo Type: [facility] [id number] Provider Notes: Diagnosis: Feeling of incomplete bladder [...] Follow up: With: Address: When: Lisa Porras [address] [place] [address] [phone] Business (1) [address], [address], [address] [address] [phone] Business (1) Comments: Office to schedule follow up in 1 month with PVR Patient Education Information: EU - Cystoscopy with Botox Injection Discharge Instructions (CUSTOM) Normal [facility] IntraOperative Documentson 1 IntraOperative Documents [id number]#1.0 0CD:127 Normal [facility] Main OR Intraoperative Recor barbara 05-22-2023 Main OR Intraoperative Record IntraOp Document Type FTURO Summary Primary Physician: Lisa Porras MD Finalized Date/Time: 05/22/23 11:29:32 Pt. Name: AISLINN WHEELER Ashok Pires/Sex: 1960 Female Med Rec #: [id number] Physician: Lisa Porras MD Financial #: [id number] Pt. Type: O Room/Bed: / Admit/Disch: 05/22/23 09:41:57 - Institution: Case Times FTURO Entry 1 Patient Times In Room 05/22/23 11:15:00 Out Room 05/22/23 11:30:00 Procedure Times Start 05/22/23 11:22:00 Stop 05/22/23 11:26:00 Anesthesia Times Last Modified By: Katya LE, Marilee Feldman 05/22/23 11:26:29 General Comments: BOTOX 100 UNITS LOT#: [id number] , EXP DATE: 09/2025 -Jessica BLANCO RN Case Attendance FTURO Entry 1 Entry 2 Entry 3 Case Attendee Vern TAVERAS, Lisa Blanco RN, Marilee Solano CST, Cammie Feldman Role Performed Surgeon - Primary Emergency Department Director - Primary Scrub - Primary Time In [...] Marilee Blanco RN Applicable) Xiomara Cagle CST, Kimberly A Time [...] By: Marilee Blanco RN 05/22/23 11:29 Normal [facility] Main OR Preoperative Recordo n 05-22-2023 Main OR Preoperative Record Holding Area Document Type FTURO Summary Primary Physician: Lisa Porras MD Finalized Date/Time: 05/22/23 10:32:24 Pt. Name: AISLINN WHEELER/Sex: 1960 Female Med Rec #: [id number] Physician: Lisa Porras MD Financial #: [id number] Pt. Type: O Room/Bed: / Admit/Disch: 05/22/23 [...] By: Cammie Mcpherson RN 05/22/23 10:32 Normal [facility] Operative Reporton 3 Operative Report Patient: BARBARA WHEELER Age: 63 years Sex: Female : 1960 Associated Diagnoses: None Author: Lisa Porras MD Procedure Operative Information Details: Date/ Time: 05/22/2023 11:29:00. Pre-Op Dx: Feeling of incomplete bladder emptying (JTR98-LM R39.14, Discharge, Medical), Mixed incontinence (VUX95-JA N39.46, Discharge, Medical), Urinary leakage (WZV84-TE R32, Discharge, Medical). Post-Op Dx: Same. Anesthesia [...] to [facility] in the remote past). Normal [facility] Comment on above: Result Comment: Elec tronically Signed By: Lisa Porras MD.\.br\Date and Time Signed: 05/22/23 11:30 EDT Outpatient Surgery Discharge Instructionon 05-22-2023 Outpatient Surgery Discharge Instruction [place] [address] Patient Discharge Instructions PERSON INFORMATION Name: LIAMAISLINN Date of : 1960 Current Date: 05/22/2023 [...] Follow up: With: Address: When: Lisa Porras [address] [place] [id number] [phone] Business (1) [address] [place] [address] [place] [phone] Business (1) Comments: Office to schedule follow [...] to serve you. Thank you for choosing [facility] Normal [facility] Consultation Noteon 05-19-20 Consultation Note [id number]#1.00C D:127 Normal [facility] A1C HEMOGLOBINon 05-18-2023 HbA1c (Bld) [Mass fraction] 14.0 % 5 O'Clock Records Other [facility] 05-18-2023 [facility] AISLINN WHEELER ([id number]) 1960 F Date Time Provider Department 05/18/23 TAURUS BALLARDRaquel During your visit today, we recorded the following information about you: Agusto Faulkner 05/18/2023 1:01 PM Signed Consult notes sent back to Dr. Lisa Porras , phone [phone]. From Dr. Ballard office. Allergies As of [...] Encounter Status:Closed by DERIK FERNANDEZ on 06/09/23 [facility] Glucose - FINGER STICKon Glucose [Mass/Vol] 429 mg/dL 5 O'Clock Records Other HbA1c (Bld) [Mass fraction]o n 05-18-2023 A1C HEMOGLOBIN [facility] Other CNOVon 05-17-2023 CNOV Office Visit (URFHR) AISLINN WHEELER ([id number]) 1960 F Date Time Provider Department 05/17/23 1:10 PM TAURUS BALLARD [facility] During your visit today, we [...] 1.92 01/19/[address] scan (outside records) [place] 09/28/21 IMPRESSION: Since the prior CT scan [...] other structures) (more content not included)... Normal [facility] C Urineon 05-13-2023 Bacteria identified Cx Nom [...] Locations R1: This test was performed at: [facility], [address] [place] [address], [facility] , , [facility] Comment on above: Performed By: #### 2 [id number] #### [facility] [address] [place] [address] Physician Referralon 023 Physician Referral [id number]#1.00CD :127 PATIENT IS SCHEDULED 05/17/2023 [facility] Consultation Noteon 05-04-20 23 Consultation Note [id number]#[id number] :127 [facility] Insurance Correspondenceon 0 05-04-2023 Insurance Correspondence [id number] CD:127 [facility] Urology Office/Clinic Noteon 05-04-2023 Urology [...] mass on Kidney was not cancerous. However spoilage worker told her she has kidney cancer. Denies [...] PSH lap cholecystectomy, open hysterectomy -Continues with spoilage worker for CKD3 1. Renal cyst (N28.1: Cyst [...] pt to tertiary center, Dr. Ballard at [facility] for evaluation of robotic left cyst decortication -Pt states spoilage worker told her she has cancer. 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 Ordered: 17526 Measure Post Void residual urine and/or bladder capacity by US- non-imaging Urnls Dip Stick Auto w/o Microscopy POC 78845 2. Mixed incontinence (N39.46: Mixed incontinence) Pt [...] of Botox. (more content not included)... Normal [facility] Comment on above: Result Comment: Elec tronically Signed By: Vern TAVERAS, Lisa Montiel\.br\Date and Time Signed: 05/04/23 14:11 EDT Ambulatory Visit Summaryon 0 05-03-2023 Ambulatory Visit Summary AISLINN WHEELER :1960 Visit Date:05/03/2023 Ambulatory Visit Instructions Your Diagnosis Renal mass Renal cyst Mixed incontinence Feeling of incomplete bladder emptying Glucosuria Tests Performed Urnls Dip Stick Auto w/o Microscopy POC 44135 Your Care Team Attending Physician - Lisa [...] Follow-Up Appointments Monday 12:30 PM EDT Where: [facility] Urology Surgical Services Monday 10:30 AM EDT Where: [facility] Urology Surgical Services You Need to Schedule the Following Appointments Follow Up with Vern TAVERAS, EMELINA Hernandez, URO When: Comments: Sched Botox. Where: Medications What How Much When Instructions New cephalexin (Keflex 500 mg Cap) 1 Capsules By Mouth 2 times a day Duration: 3 Days Start one day prior to procedure Pickup at [facility] New estradiol topical (Estrace 0.1 mg/ g Cream) See instructions Refills: 3 apply pea size amount to urethra/ inner vagina 3x/ week x 1 month, then 2x/ week for maintainence Pickup at [facility] Unchanged trospium (trospium 20 mg [...] physician if questions or concerns Pharmacy Information [facility]: [address] [place], [place] [id number] [phone] Test Results Urnls Dip Stick Auto w/o Microscopy POC 27769 (05/03/2023) Bilirubin Urine Dipstick - Negative Blood Urine Dipstick - Trace-intact Glucose Urine Dipstick - 3+ 1000 mg/dl Ketones Urine Dipstick - Negative Leukocytes Urine Dipstick - Negative Nitrite Urine Dipstick - Negative Protein Urine Dipstick - Trace Specific [place] Urine Dipstick - 1.015 Urine Appearance Urine [...] are saf (more content not included)... Normal [facility] Patient Educationon 05-03-20 Patient Education Obstetrics [...] provider. Document Revised: 12/16/2021 Document Reviewed: 12/16/2021 [employer] Patient Education ? 2022 [employer] [facility] [place] 05-03-2023 Screens [id number] CD:127 Normal [facility] C Urineon 04-20-2023 Bacteria identified Cx [...] Locations R1: This test was performed at: [facility], [address] [place] [address], [address] , , [facility] Comment on above: Performed By: #### 2 [id number] ####[facility] [address] [place] [address] Ambulatory Visit Summaryon 0 04-18-2023 Ambulatory Visit [...] [facility] [place] 02-23-2023 Screens [id number] CD:127 [facility] Ambulatory Visit Summaryon 0 02-22-2023 Ambulatory Visit Summary AISLINN WHEELER :1960 Visit Date:02/22/2023 Ambulatory Visit Instructions Your Diagnosis Renal mass Renal cyst Mixed incontinence Feeling of incomplete bladder emptying Glucosuria Tests Performed Urnls Dip Stick Auto w/o Microscopy POC 53539 Your Care Team Attending Physician - Lisa [...] TAVERAS, Lisa Montiel Where: [facility] [place] Normal [facility] Patient Educationon 02-23-20 Patient Education Obstetrics [...] provider. Document Revised: 12/16/2021 Document Reviewed: 12/16/2021 [employer] Patient Education ? 2022 [employer] [facility] Urology Office/Clinic Noteon 02-22-2023 Urology Office/Clinic [...] PSH lap cholecystectomy, open hysterectomy -Continues with spoilage worker after referred last visit 1. Renal mass [...] and the (more content not included)... Normal [facility] Comment on above: Result Comment: Elec tronically Signed By: Lisa Porras MD.br\Date and Time Signed: 02/22/23 10:14 EDT\.br\Electronically Co-Signed By: Marilee Gray.br\Date and Time Co-Signed: 02/22/23 09:36 EDT Lab Reportson 02-20-2023 Lab Reports [id number] D:127 Normal [facility] RAD - CT Reporton 02-20-2023 RAD - CT Report [id number] :127 Normal [facility] Physician Orderon 02-01-2023 Physician Order [id number] :127 Normal [facility] Consultation Noteon 01-08-20 Consultation Note [id number]#[id number] D:127 Normal [facility] XR FOOT LT MIN 3 VIEWSon XR FOOT LT MIN 3 VIEWS Normal [facility] MG MAMM SCREEN 3D GURJIT CADon 12-28-2022 MG MAMM SCREEN 3D GURJIT CAD Normal [facility] XR DEXA BONE DENSITYon 12-28 XR DEXA BONE DENSITY Normal [facility] NM STRESS/REST MULTIon 12-15 NM STRESS/REST MULTI Normal [facility] XR FOOT LT MIN 3 VIEWSon XR FOOT LT MIN 3 VIEWS Normal [facility] Physician Referralon 023 Physician Referral [id number]#[id number] D:127 Normal [facility] CT FOOT LT WO CONon 10-28-19 CT FOOT LT WO CON Normal [facility] XR FOOT LT MIN 3 VIEWSon XR FOOT LT MIN 3 VIEWS Normal [facility] XR FOOT LT MIN 3 VIEWSon XR FOOT LT MIN 3 VIEWS Normal [facility] XR FOOT LT MIN 3 VIEWSon XR FOOT LT MIN 3 VIEWS Normal [facility] XR FOOT LT MIN 3 VIEWSon XR FOOT LT MIN 3 VIEWS Normal [facility] XR FOOT LT MIN 3 VIEWSon XR FOOT LT MIN 3 VIEWS Normal [facility] US KIDNEYSon 09-15-2022 US KIDNEYS Normal [facility] XR FOOT LT MIN 3 VIEWSon XR FOOT LT MIN 3 VIEWS Normal [facility] XR FOOT LT MIN 3 VIEWSon XR FOOT LT MIN 3 VIEWS Normal [facility] XR FOOT LT MIN 3 VIEWSon XR FOOT LT MIN 3 VIEWS Normal [facility] CBC AUTO DIFFon 08-03-2022 BASO # 0.0 103/ul Normal 0.0-0.1 [facility] Comment on above: Performed By: #### C BC ####[facility] [address]tw[address] [place] [address]Dr. Ricardo Rocha Basophils/100 WBC (Bld) 0.5 % Normal 0.2-2.0 [facility] Comment on above: Performed By: #### C BC ####[facility] Qsd[address] [place], [place] [address]Dr. Ricardo Rocha EO # 0.1 103/ul Normal 0.0-0.7 [facility] Comment on above: Performed By: #### C BC ####[facility] Qkjonmyktw[address] [place], [place] [address]Dr. Ricardo Rocha Eosinophils/100 WBC (Bld) 1.2 % Normal 0.9-7.0 [facility] Comment on above: Performed By: #### C BC ####[facility] Mhjilalinq[address] [place], [place] [address]Dr. Ricardo Rocha Erythrocyte distribution width (RBC) [Ratio] 15.0 % Normal 11.0-15.0 [facility] Comment on above: Performed By: #### C BC ####[facility] [address]tsi[address] [place] [address]Dr. Ricardo Rocha Hematocrit (Bld) [Volume fraction] 29.5 % Critically low 36.0-48.0 [facility] Comment on above: Performed By: #### C BC ####[facility] Ekpfspjdzx7[address] [place], [place] [address]Dr. Ricardo Rocha Hemoglobin (Bld) [Mass/Vol] 9.3 g/dL Critically low 12.0-16.0 [facility] Comment on above: Performed By: #### C BC ####[facility] [address]iw[address] [place] [id number]. Ricardo Rocha IG # 0.04 10e3/ul Critically high 0.00-0.03 [facility] Comment on above: Performed By: #### C BC ####[facility] Xhzwfcwphu10[address] [place] [address]Dr. Ricardo Aj IG % 0.5 % Normal 0.0-0.5 [facility] Comment on above: Performed By: #### C BC ####[facility] [address]tt[address]ts[address] [place] [address]Dr. Ricardo Aj LYMPH # 1.4 103/ul Normal 1.2-3.8 [facility] Comment on above: Performed By: #### C BC ####[facility] Bfpdghvjir[address] [place] [address]Dr. Ricardo Rocha Lymphocytes/100 WBC (Bld) 17.2 % Critically low 20.5-60.0 [facility] Comment on above: Performed By: #### C BC ####[facility] Wkfszwixup[address] [place], [place] [address]Dr. Nanomarcial Rocha MANUAL DIFF REQ NO Normal [facility] Comment on above: Performed By: #### C BC ####[facility] [address]tmpdkkhba[address] [place] [address]Dr. Ricardo Aj MCH (RBC) [Entitic mass] 25.2 pg Critically low 26.7-34.0 [facility] Comment on above: Performed By: #### C BC ####[facility] [address]woaqcu[address] [place] [address]Dr. Ricardo Aj MCHC (RBC) [Mass/Vol] 31.5 g/dL Normal 29.9-35.2 [facility] Comment on above: Performed By: #### C BC ####[facility] Cuibukqpmq[address] [place] [address]Dr. Ricardo Aj MCV (RBC) [Entitic vol] 79.9 fL Critically low 81.0-99.0 [facility] Comment on above: Performed By: #### C BC ####[facility] Bdmasryibl9[address] [place] [address]Dr. Ricardo Rocha MONO # 0.6 103/ul Normal 0.3-0.8 [facility] Comment on above: Performed By: #### C BC ####[facility] Tqiyqqhjnz0203 [place] [address]Dr. Ricardo Rocha Monocytes/100 WBC (Bld) 7.6 % Normal 1.7-12.0 [facility] Comment on above: Performed By: #### C BC ####[facility] Mbwnbpviup5944 [place] [address]Dr. Ricardo Rocha NEUT # 5.9 103/ul Normal 1.4-6.5 [facility] Comment on above: Performed By: #### C BC ####[facility] Prddswelgd4[address] [place] [address]Dr. Ricardo Rocha Neutrophils/100 WBC (Bld) 73.0 % Normal 43.0-75.0 [facility] Comment on above: Performed By: #### C BC ####[facility] Zwwsptqyxr0835 [place] [address]Dr. Ricardo Rocha Platelet mean volume (Bld) [Entitic vol] 11.4 fL Normal 9.5-13.5 [facility] Comment on above: Performed By: #### C BC ####[facility] Dbiotycsmo29[address] [place] [address]Dr. Ricardo Rocha PLT 253 103/ul Normal 150-450 [facility] Comment on above: Performed By: #### C BC ####[facility] Huabrwwzjl7[address] [place] [address]Dr. Ricardo Rocha RBC 3.69 106/ul Critically low 4.20-5.40 [facility] Comment on above: Performed By: #### C BC ####[facility] Sbneubjsce18[address] [place] [address]Dr. Ricardo Rocha WBC 8.0 103/ul Normal 4.0-11.0 [facility] Comment on above: Performed By: #### C BC ####[facility] Xsglsaxzdx14[address] [place] [phone]. Ricardo Rocha CRPon 08-03-2022 CRP 3.1 mg/dL Critically high <=1.0 [facility] Comment on above: Performed By: #### C RP, BMP, URIC ####[facility] Gxsifrogvb[address] [place], [place] [address]Dr. Nanolan Rocha CULTURE BLOODon 08-03-2022 Microscopic examination of blood, culture Culture Observations: NO GROWTH AT 5 DAYS. Normal [facility] Comment on above: Performed By: #### B LDCX2 ####[facility] Atzzhqwtyy[address] [place], [place] [address]Dr. Ricardo Rocha Microscopic examination of blood, culture Culture Observations: NO GROWTH AT 5 DAYS. Normal [facility] Comment on above: Performed By: #### B LDCX1 ####[facility] Rtaqhloepj[address] [place], [place] [address]Dr. Ricardo Rocha ER URINE PROFILEon 2 Bilirubin Ql (U) Negative Normal NEGATIVE [facility] Comment on above: Performed By: #### E RUR ####[facility] Fpcrddqvue[address] [place], [place] [address]Dr. Ricardo Rocha Clarity (U) CLEAR Normal CLEAR [facility] Comment on above: Performed By: #### E RUR ####[facility] Lcbentzdyc[address] [place], [place] [address]Dr. Nanomarcial Rocha Color (U) LT. YELLOW Normal YELLOW [facility] Comment on above: Performed By: #### E RUR ####[facility] Mbrokloffp[address] [place], [place] [address]Dr. Ricardo Aj ERUAHD A micrscopic examination will be performed if indicated. Normal [facility] Comment on above: Performed By: #### E RUR ####[facility] Fzfrbogxcw[address] [place], [place] [address]Dr. Nanomarcial Aj Glucose Ql (U) 100 mg/dl Abnormal NEGATIVE [facility] Comment on above: Performed By: #### E RUR ####[facility] Asefzkrudb[address] [place], [place] [address]Dr. Ricardo Rocha Hemoglobin Ql (U) Negative Normal NEGATIVE [facility] Comment on above: Performed By: #### E RUR ####[facility] Fudintuzzq16[address] [place] [address]Dr. Ricardo Rocha Ketones Ql (U) Negative Normal NEGATIVE [facility] Comment on above: Performed By: #### E RUR ####[facility] Jnbiiliwgr4[address] [place] [address]Dr. Ricardo Rocha LEUKOCYTES Negative Normal NEGATIVE [facility] Comment on above: Performed By: #### E RUR ####[facility] Uvvpnyteuo1504 [place] [address]Dr. Ricardo Rocha Nitrite Ql (U) Negative Normal NEGATIVE [facility] Comment on above: Performed By: #### E RUR ####[facility] Cokaabwcan[address] [place], [place] [address]Dr. Ricardo Aj pH (U) 6.0 [pH] Normal 5-9 [facility] Comment on above: Performed By: #### E RUR ####[facility] Mjczxbhjrw[address] [place], [place] [address]Dr. Ricardo Rocha SPEC GRAVITY 1.010 Normal 1.005-<=1.02 5 [facility] Comment on above: Performed By: #### E RUR ####[facility] Veevssewlk[address] [place], [place] [address]Dr. Ricardo Rocha UA PROTEIN Negative Normal NEGATIVE/ TRACE [facility] Comment on above: Performed By: #### E RUR ####[facility] Twicritqge[address] [place], [place] [address]Dr. Ricardo Aj UR MICRO IND NOT INDICATED Normal [facility] Comment on above: Performed By: #### E RUR ####[facility] Ooszwr[address]mcj[address] [place], [place] [address]Dr. Nanomarcial Aj Urobilinogen Qn (U) 0.2 {Madeleine'U}/dL Normal 0.2 - 1. 0 [facility] Comment on above: Performed By: #### E RUR ####[facility] Krinyvhjbb[address] [place], [place] [address]Dr. Ricardo Aj LACTATE/LACTIC ACIDon 2021 Lactate [Moles/Vol] 0.5 mmol/L Normal 0.4-1.9 [facility] Comment on above: Performed By: #### L ACT ####[facility] [address]vf[address]ufi[address] [place] [address]Dr. Ricardo Aj PROF CHEM 8 (BAS METB)on Anion gap [Moles/Vol] 12.9 mmol/L Normal [facility] Comment on above: Performed By: #### C RP, BMP, URIC ####[facility] [address]xcvdlglo75[address] [place] [address]Dr. Ricardo Rocha Calcium [Mass/Vol] 9.0 mg/dL Normal 8.5-10.1 [facility] Comment on above: Performed By: #### C RP, BMP, URIC ####[facility] Bwmnimaryr74[address] [place] [address]Dr. Ricardo Rocha Chloride [Moles/Vol] 102 mmol/L Normal 98-107 [facility] Comment on above: Performed By: #### C RP, BMP, URIC ####[facility] R[address]htoslwn88[address] [place] [address]Dr. Ricardo Rocha CO2 [Moles/Vol] 23.9 mmol/L Normal 21.0-32.0 [facility] Comment on above: Performed By: #### C RP, BMP, URIC ####[facility] Sxfbytptoq[address] [place] [address]Dr. Ricardo Rocha Creatinine [Mass/Vol] 1.36 mg/dL Critically high 0.55-1.02 [facility] Comment on above: Performed By: #### C RP, BMP, URIC ####[facility] Gleowqfacy[address] [place] [address]Dr. Ricardo Rocha EGFR-AF WALLISIAN 47 mL/min/1.73m2 Critically low >=60 [facility] Comment on above: Performed By: #### C RP, BMP, URIC ####[facility] Wkkhtmoxuk45[address] [place] [address]Dr. Ricardo Rocha EGFR-NON AF WALLISIAN 39 mL/min/1.73m2 Critically low >=60 [facility] Comment on above: Performed By: #### C RP, BMP, URIC ####[facility] Kzfoklyeak[address] [place] [address]Dr. Ricardo Rocha Glucose [Mass/Vol] 125 mg/dL Critically high 74-106 [facility] Comment on above: Performed By: #### C RP, BMP, URIC ####[facility] Xxxsmvqgbp1216 [place] [address]Dr. Ricardo Rocha Potassium [Moles/Vol] 4.8 mmol/L Normal 3.5-5.1 [facility] Comment on above: Performed By: #### C RP, BMP, URIC ####[facility] Nvcihqokve7[address] [place] [address]Dr. Ricardo Rocha Sodium [Moles/Vol] 134 mmol/L Critically low 136-145 [facility] Comment on above: Performed By: #### C RP, BMP, URIC ####[facility] Wmmvzlsbhv0346 [place] [address]Dr. Ricardo Rocha Urea nitrogen [Mass/Vol] 22.0 mg/dL Critically high 7.0-18.0 [facility] Comment on above: Performed By: #### C RP, BMP, URIC ####[facility] Pmjnviflrp9537 [place] [address]Dr. Ricardo Rocha Urea nitrogen/Creatinine [Mass ratio] 16.2 mg/mg Normal [facility] Comment on above: Performed By: #### C RP, BMP, URIC ####[facility] Bhglrvbgeg9918 [place] [address]Dr. Ricardo Rocha SED RATE WESTERGRENon 2021 SED RATE 95 mm/hr Critically high <=30 [facility] Comment on above: Performed By: #### S EDR ####[facility] Pmysdegjzz8653 [place] [address]Dr. Ricardo Rocha URIC ACID SERUMon 08-03-2022 Urate [Mass/Vol] 4.7 mg/dL Normal 2.6-6.0 [facility] Comment on above: Performed By: #### C RP, BMP, URIC ####[facility] Tq[address]fcvutkp5[address] [place] [address]Dr. Ricardo Rocha XR FOOT LT MIN 3 VIEWSon XR FOOT LT MIN 3 VIEWS Normal [facility] PROF CHEM 8 (BAS METB)on Anion gap [Moles/Vol] 13.8 mmol/L Normal [facility] Comment on above: Performed By: #### B MP ####[facility] Nhoxlypmnf9[address] [place] [address]Dr. Ricardo Rocha Calcium [Mass/Vol] 8.9 mg/dL Normal 8.5-10.1 [facility] Comment on above: Performed By: #### B MP ####[facility] Hiqrpcscge3883 [place] [address]Dr. Ricardo Rocha Chloride [Moles/Vol] 101 mmol/L Normal 98-107 [facility] Comment on above: Performed By: #### B MP ####[facility] Abwfrwpsms6464 [place] [address]Dr. Ricardo Rocha CO2 [Moles/Vol] 22.8 mmol/L Normal 21.0-32.0 [facility] Comment on above: Performed By: #### B MP ####[facility] Hmhhqbubnl8552 [place] [address]Dr. Ricardo Rocha Creatinine [Mass/Vol] 1.43 mg/dL Critically high 0.55-1.02 [facility] Comment on above: Performed By: #### B MP ####[facility] Duhbmdzxck2985 [place] [address]Dr. Ricardo Aj EGFR-AF WALLISIAN 45 mL/min/1.73m2 Critically low >=60 [facility] Comment on above: Performed By: #### B MP ####[facility] Eegriwwida9184 [place] [address]Dr. Nanomarcial Aj EGFR-NON AF WALLISIAN 37 mL/min/1.73m2 Critically low >=60 [facility] Comment on above: Performed By: #### B MP ####[facility] Gyyztohvxk2847 [place], [place] [address]Ou. Ricardo Rocha Glucose [Mass/Vol] 279 mg/dL Critically high 74-106 [facility] Comment on above: Performed By: #### B MP ####[facility] Utpqlhoxso5499 [place], [place] [address]Jq. Ricardo Rocha Potassium [Moles/Vol] 4.6 mmol/L Normal 3.5-5.1 [facility] Comment on above: Performed By: #### B MP ####[facility] Rmgbvdjlbq8205 [place] [phone]. Nanomarcial Rocha Sodium [Moles/Vol] 133 mmol/L Critically low 136-145 [facility] Comment on above: Performed By: #### B MP ####[facility] Hxamxvemtp3873 [place] [address]Dr. Nanomarcial Rocha Urea nitrogen [Mass/Vol] 24.0 mg/dL Critically high 7.0-18.0 [facility] Comment on above: Performed By: #### B MP ####[facility] Yealdawqfv0627 [place] [address]Dr. Ricardo Rocha Urea nitrogen/Creatinine [Mass ratio] 16.8 mg/mg Normal [facility] Comment on above: Performed By: #### B MP ####[facility] Kmpfpiijvs7045 [place] [address]Dr. Ricardo Rocha ACID FAST SMEAR AND CXon Acid Fast Culture Negative Normal [facility] Comment on above: Result Comment: No a amilcar fast bacilli isolated after 6 weeks. Performed By: #### A FB ####[facility] Erfycyqspa7886 [place], [place] [address]Rh. Ricardo Rocha Acid Fast Smear Negative Normal [facility] Comment on above: Performed By: #### A FB ####[facility] Syfjacuxse1809 [place] [address]Dr. Ricardo Rocha AFB Specimen Processing Direct Inoculation Normal [facility] Comment on above: Performed By: #### A FB ####[facility] Cbzqgcjjjq2712 [place] [phone]. Ricardo Rocha AF[employer] Specimen Processing Tissue Grinding Normal [facility] Comment on above: Performed By: #### A FB ####[facility] Znnhovahvu3682 [place] [address]Dr. Ricardo Rcoha FUNGAL CULTUREon 07-11-2022 Fungus (Mycology) Culture Final report Normal [facility] Comment on above: Performed By: #### C XFUN ####[facility] Xpteimqhqu[address] [place], [place] [address]Dr. Ricardo Rocha Fungus Stain Final report Normal [facility] Comment on above: Performed By: #### C XFUN ####[facility] Ufbeajlqbx44[address] [place], [place] [address]Dr. Ricardo Rocha Result 1 Comment Normal [facility] Comment on above: Result Comment: AAYUSH/ Calcofluor preparation: no fungus observed. Performed By: #### C XFUN ####[facility] Ruzlvvkbjq9[address] [place], [place] [address]Dr. Ricardo Rocha Result Comment: No y east or mold isolated after 4 weeks. PROF CHEM 8 (BAS METB)on Anion gap [Moles/Vol] 15.1 mmol/L Normal [facility] Comment on above: Performed By: #### B MP ####[facility] Hkunrqfjlu27[address] [place], [place] [address]Dr. Ricardo Rocha Calcium [Mass/Vol] 9.0 mg/dL Normal 8.5-10.1 [facility] Comment on above: Performed By: #### B MP ####[facility] Medgmhwqwl22[address] [place], [place] [address]Dr. Ricardo oRcha Chloride [Moles/Vol] 101 mmol/L Normal 98-107 [facility] Comment on above: Performed By: #### B MP ####[facility] Juzhdotbun[address] [place], [place] [address]Dr. Ricardo Rocha CO2 [Moles/Vol] 18.5 mmol/L Critically low 21.0-32.0 [facility] Comment on above: Performed By: #### B MP ####[facility] Rnntzxyriu[address] [place], [place] [address]Dr. Ricardo Rocha Creatinine [Mass/Vol] 2.05 mg/dL Critically high 0.55-1.02 [facility] Comment on above: Performed By: #### B MP ####[facility] Hbcqfdbelr[address] [place], [place] [address]Dr. Ricardo Rocha EGFR-AF WALLISIAN 30 mL/min/1.73m2 Critically low >=60 [facility] Comment on above: Performed By: #### B MP ####[facility] Adhmvqflbq[address] [place], [place] [address]Dr. Ricardo Aj EGFR-NON AF WALLISIAN 24 mL/min/1.73m2 Critically low >=60 [facility] Comment on above: Performed By: #### B MP ####[facility] Tqdkfruiam264[address] [place], [place] [address]Dr. Ricardo Rocha Glucose [Mass/Vol] 134 mg/dL Critically high 74-106 [facility] Comment on above: Performed By: #### B MP ####[facility] Bqowlzrpqf025[address] [place], [place] [address]Dr. Ricardo Rocha Potassium [Moles/Vol] 5.6 mmol/L Critically high 3.5-5.1 [facility] Comment on above: Performed By: #### B MP ####[facility] Eeufxhexfh5[address] [place], [place] [address]Dr. Ricardo Rocha Sodium [Moles/Vol] 129 mmol/L Critically low 136-145 [facility] Comment on above: Performed By: #### B MP ####[facility] Oqreqgcupx59[address] [place], [place] [address]Dr. Ricardo Rocha Urea nitrogen [Mass/Vol] 57.0 mg/dL Critically high 7.0-18.0 [facility] Comment on above: Performed By: #### B MP ####[facility] Tzcjqlbjji69[address] [place], [place] [address]Dr. Ricardo Rocha Urea nitrogen/Creatinine [Mass ratio] 27.8 mg/mg Normal [facility] Comment on above: Performed By: #### B MP ####[facility] Hhfssrfhur5[address] [place] [address]Dr. Ricardo Rocha CBC AUTO DIFFon 07-06-2022 BASO # 0.0 103/ul Normal 0.0-0.1 [facility] Comment on above: Performed By: #### C BC ####[facility] Ghdfvqhdye[address] [place], [place] [address]Dr. Ricardo Rocha Basophils/100 WBC (Bld) 0.6 % Normal 0.2-2.0 [facility] Comment on above: Performed By: #### C BC ####[facility] Xnfywsogak[address] [place], [place] [address]Dr. Ricardo Rocha EO # 0.1 103/ul Normal 0.0-0.7 [facility] Comment on above: Performed By: #### C BC ####[facility] Rxrjxvisqi[address] [place], [place] [address]Dr. Ricardo Aj Eosinophils/100 WBC (Bld) 1.7 % Normal 0.9-7.0 [facility] Comment on above: Performed By: #### C BC ####[facility] Exsxosqybt[address] [place], [place] [address]Dr. Ricardo Rocha Erythrocyte distribution width (RBC) [Ratio] 15.2 % Critically high 11.0-15.0 [facility] Comment on above: Performed By: #### C BC ####[facility] Yxbjobrvoj14[address] [place], [place] [address]Dr. Ricardo Rocha Hematocrit (Bld) [Volume fraction] 34.6 % Critically low 36.0-48.0 [facility] Comment on above: Performed By: #### C BC ####[facility] Jyibqfpuhn[address] [place], [place] [address]Dr. Ricardo Rocha Hemoglobin (Bld) [Mass/Vol] 10.5 g/dL Critically low 12.0-16.0 [facility] Comment on above: Performed By: #### C BC ####[facility] Vwwgcubkgd[address] [place], [place] [address]Dr. Ricardo Rocha IG # 0.01 10e3/ul Normal 0.00-0.03 [facility] Comment on above: Performed By: #### C BC ####[facility] Gxxhtitutn7[address] [place] [id number]. Ricardo Rocha IG % 0.2 % Normal 0.0-0.5 [facility] Comment on above: Performed By: #### C BC ####[facility] Caydfymxgp[address] [place] [address]Dr. Ricardo Rocha LYMPH # 2.4 103/ul Normal 1.2-3.8 [facility] Comment on above: Performed By: #### C BC ####[facility] Bcufwnnyau2162 [place] [address]Dr. Ricardo Rocha Lymphocytes/100 WBC (Bld) 44.4 % Normal 20.5-60.0 [facility] Comment on above: Performed By: #### C BC ####[facility] Ynkwqffscx1385 [place] [address]Dr. Ricardo Rocha MANUAL DIFF REQ NO Normal [facility] Comment on above: Performed By: #### C BC ####[facility] Vdwooghmeq1820 [place] [phone]. Ricardo Rocha MCH (RBC) [Entitic mass] 25.0 pg Critically low 26.7-34.0 [facility] Comment on above: Performed By: #### C BC ####[facility] Dkogmfsmhz6387 [place] [address]Dr. Ricardo Rocha MCHC (RBC) [Mass/Vol] 30.3 g/dL Normal 29.9-35.2 [facility] Comment on above: Performed By: #### C BC ####[facility] [address] [place], [place] [address]Dr. Ricardo Rocha MCV (RBC) [Entitic vol] 82.4 fL Normal 81.0-99.0 [facility] Comment on above: Performed By: #### C BC ####[facility] Lbybrcrrrh0431 [place] [address]Dr. Ricardo Aj MONO # 0.3 103/ul Normal 0.3-0.8 [facility] Comment on above: Performed By: #### C BC ####[facility] Hacdthyury4400 [place] [address]Dr. Ricardo Rocha Monocytes/100 WBC (Bld) 5.1 % Normal 1.7-12.0 [facility] Comment on above: Performed By: #### C BC ####[facility] Hqxlvxwuau2712 [place] [address]Dr. Ricardo Rocha NEUT # 2.5 103/ul Normal 1.4-6.5 [facility] Comment on above: Performed By: #### C BC ####[facility] Xzmvpziwjy7769 [place] [address]Dr. Ricardo Rocha Neutrophils/100 WBC (Bld) 48.0 % Normal 43.0-75.0 [facility] Comment on above: Performed By: #### C BC ####[facility] Xuxidypvnc0054 [place] [address]Dr. Ricardo Rocha Platelet mean volume (Bld) [Entitic vol] 10.7 fL Normal 9.5-13.5 [facility] Comment on above: Performed By: #### C BC ####[facility] Mdqhjawjdz8236 [place] [phone]. Ricardo Rocha PLT 261 103/ul Normal 150-450 [facility] Comment on above: Performed By: #### C BC ####[facility] [address] [place] [id number]. Ricardo Rocha RBC 4.20 106/ul Normal 4.20-5.40 [facility] Comment on above: Performed By: #### C BC ####[facility] Tojskztzoh3[address] [place] [id number]. Ricardo Rocha WBC 5.3 103/ul Normal 4.0-11.0 [facility] Comment on above: Performed By: #### C BC ####[facility] [address] [place], [place] [id number]. Ricardo Rocha GLYCOHEMOGLOBIN A1Con 2021 ADA RECOMMENDATION SEE BELOW Normal [facility] Comment on above: Result Comment: ADA RECOMMENDED LIMIT 4.0 - 6.0 ADA THERAPEUTIC TARGET < 7.0 ACTION SUGGESTED > 7.0 Performed By: #### A 1C ####[facility] Yvpcwrfmdk43[address] [place] [id number]. Ricardo Rocha Glucose [Mass/Vol] 289 mg/dL Normal [facility] Comment on above: Performed By: #### A 1C ####[facility] Jtqmdkqsjd2246 [place] [address]Dr. Ricardo Rocha HbA1c (Bld) [Mass fraction] 11.7 % Critically high 4.5-6.2 [facility] Comment on above: Performed By: #### A 1C ####[facility] Tlwiodq[address] [place] [address]Dr. Ricardo Rocha LIPID PROFILEon 07-06-2022 CHOL-HDL RATIO NORM SEE BELOW Normal [facility] Comment on above: Result Comment: 3.3 - 4.4 LOW RISK 4.4 - 7.1 AVERAGE RISK 7.1 - 11.0 MODERATE RISK >11.0 HIGH RISK Performed By: #### T SH, CMP, LIPID ####[facility] Iqzuyppnbg[address] [place] [address]Dr. Ricardo Rocha Cholesterol [Mass/Vol] 284 mg/dL Critically high <=200 [facility] Comment on above: Performed By: #### T SH, CMP, LIPID ####[facility] Reqwxsxaow37[address] [place] [address]Dr. Ricardo Rocha Cholesterol in HDL [Mass/Vol] 40 mg/dL Normal 40-60 [facility] Comment on above: Performed By: #### T SH, CMP, LIPID ####[facility] Fufpqbqjpp7935 [place] [address]Dr. Ricardo Rocha Cholesterol in LDL [Mass/Vol] 167.8 mg/dL Normal [facility] Comment on above: Performed By: #### T SH, CMP, LIPID ####[facility] Yzwmnphbhj4155 [place] [address]Dr. Ricardo Rocha Cholesterol.total/Ch olesterol in HDL [Mass ratio] 7.1 {ratio} Normal [facility] Comment on above: Performed By: #### T SH, CMP, LIPID ####[facility] Dcxhvvyfbf7[address] [place] [address]Dr. Ricardo Rocha HDL NORMAL > or = 60 mg/dl - LO W CARDIOVASCULAR RISK <40 mg/dl - HIGH CARDIOVASCULAR RISK Normal [facility] Comment on above: Performed By: #### T SH, CMP, LIPID ####[facility] Mqszguplju[address] [place] [address]Dr. Ricardo Rocha LDL CALC NORMAL SEE BELOW Normal [facility] Comment on above: Result Comment: <100 mg/dl OPTIMAL 100 - 129 mg/dl NEAR OR ABOVE OPTIMAL 130 - 159 mg/dl BORDERLINE HIGH 160 - 189 mg/dl HIGH >190 mg/dl VERY HIGH Performed By: #### T SH, CMP, LIPID ####[facility] Pfofnsxjbw76[address] [place] [address]Dr. Ricardo Rocha Triglyceride [Mass/Vol] 381 mg/dL Critically high <=150 [facility] Comment on above: Performed By: #### T SH, CMP, LIPID ####[facility] Eyqqsltmmh6359 [place] [address]Dr. Ricardo Rocha VLDL CALC 76.2 mg/dL Normal [facility] Comment on above: Performed By: #### T ANTONIA, CMP, LIPID ####[facility] Ydhxudnoqp2421 [place] [address]Dr. Ricardo Rocha MICROALBUMIN, RAND URon 11- mALB <1.3 Normal <=30.0 [facility] Comment on above: Performed By: #### M ALBR ####[facility] Jedyivzhhs12[address] [place] [address]Dr. Ricardo Rocha PROF 14(COMP METB)on 022 Albumin [Mass/Vol] 3.3 g/dL Critically low 3.4-5.0 [facility] Comment on above: Performed By: #### T SH, CMP, LIPID ####[facility] Ugzfzlrmql7660 [place] [address]Dr. Ricardo Rocha Albumin/Globulin [Mass ratio] 0.5 {ratio} Normal [facility] Comment on above: Performed By: #### T SH, CMP, LIPID ####[facility] Rnwqamvael8672 [place] [address]Dr. Ricardo Rocha ALP [Catalytic activity/Vol] 129 U/L Critically high 46-116 [facility] Comment on above: Performed By: #### T SH, CMP, LIPID ####[facility] Qoqnqiaqkg2983 [place] [address]Dr. Ricardo Rocha ALT [Catalytic activity/Vol] 22 U/L Normal 14-59 [facility] Comment on above: Performed By: #### T SH, CMP, LIPID ####[facility] Jflpklvbxx2168 [place] [address]Dr. Ricardo Rocha Anion gap [Moles/Vol] 16.1 mmol/L Normal [facility] Comment on above: Performed By: #### T SH, CMP, LIPID ####[facility] Izzwjtzfze4319 [place] [address]Dr. Ricardo Rocha AST [Catalytic activity/Vol] 22 U/L Normal 15-37 [facility] Comment on above: Performed By: #### T SH, CMP, LIPID ####[facility] Mgjrawmjbz4799 [place] [address]Dr. Ricardo Rocha Bilirubin [Mass/Vol] 0.2 mg/dL Normal 0.2-1.0 [facility] Comment on above: Performed By: #### T SH, CMP, LIPID ####[facility] Kcckpelxez1237 [place] [address]Dr. Ricardo Rocha Calcium [Mass/Vol] 9.4 mg/dL Normal 8.5-10.1 [facility] Comment on above: Performed By: #### T SH, CMP, LIPID ####[facility] Pqrrmwcmfd0238 [place] [address]Dr. Ricardo Rocha Chloride [Moles/Vol] 102 mmol/L Normal 98-107 [facility] Comment on above: Performed By: #### T SH, CMP, LIPID ####[facility] Nxmxezwncv8814 [place] [address]Dr. Ricardo Rocha CO2 [Moles/Vol] 18.4 mmol/L Critically low 21.0-32.0 [facility] Comment on above: Performed By: #### T SH, CMP, LIPID ####[facility] Zmeqqrpaxg7562 [place] [address]Dr. Ricardo Rocha Creatinine [Mass/Vol] 2.01 mg/dL Critically high 0.55-1.02 [facility] Comment on above: Performed By: #### T SH, CMP, LIPID ####[facility] Nnxdiqgoah[address] [place], [place] [address]Dr. Ricardo Rocha EGFR-AF WALLISIAN 30 mL/min/1.73m2 Critically low >=60 [facility] Comment on above: Performed By: #### T SH, CMP, LIPID ####[facility] Jvxbskwner64[address] [place], [place] [address]Dr. Ricardo Rocha EGFR-NON AF WALLISIAN 25 mL/min/1.73m2 Critically low >=60 [facility] Comment on above: Performed By: #### T SH, CMP, LIPID ####[facility] Dyazzjrhpc2[address] [place], [place] [address]Dr. Ricardo Aj Globulin (S) [Mass/Vol] 6.3 g/dL Normal [facility] Comment on above: Performed By: #### T SH, CMP, LIPID ####[facility] Gnogdrtgma[address] [place], [place] [address]Dr. Nanomarcial Rocha Glucose [Mass/Vol] 118 mg/dL Critically high 74-106 [facility] Comment on above: Performed By: #### T SH, CMP, LIPID ####[facility] Mrrmykpjqc[address] [place], [place] [address]Dr. Ricardo Rocha Potassium [Moles/Vol] 5.5 mmol/L Critically high 3.5-5.1 [facility] Comment on above: Performed By: #### T SH, CMP, LIPID ####[facility] Naxhahxygy[address] [place], [place] [address]Dr. Ricardo Rocha Protein [Mass/Vol] 9.6 g/dL Critically high 6.4-8.2 [facility] Comment on above: Performed By: #### T SH, CMP, LIPID ####[facility] Kraayvwhue2922 [place] [address]Dr. Ricardo Rocha Sodium [Moles/Vol] 131 mmol/L Critically low 136-145 [facility] Comment on above: Performed By: #### T SH, CMP, LIPID ####[facility] Nahsmjegnu0234 [place] [address]Dr. Ricardo Rocha Urea nitrogen [Mass/Vol] 45.0 mg/dL Critically high 7.0-18.0 [facility] Comment on above: Performed By: #### T SH, CMP, LIPID ####[facility] Njvgybxsyq3574 [place] [address]Dr. Ricardo Rocha Urea nitrogen/Creatinine [Mass ratio] 22.4 mg/mg Normal [facility] Comment on above: Performed By: #### T SH, CMP, LIPID ####[facility] Bpkdgjpllp9944 [place] [address]Dr. Ricardo Rocha TSHon 07-06-2022 TSH 1.178 uIU/mL Normal 0.358-3.740 [facility] Comment on above: Performed By: #### T SH, CMP, LIPID ####[facility] Seerivpqer5712 [place] [address]Dr. Ricardo Rocha UA RANDOM W/MICROSCOPICon BACTERIA NONE SEEN Normal NONE SEEN [facility] Comment on above: Performed By: #### U AMIC ####[facility] Cpuzfvsdwc6405 [place] [address]Dr. Ricardo Rocha Bilirubin Ql (U) Negative Normal NEGATIVE [facility] Comment on above: Performed By: #### U AMIC ####[facility] Wlsanxpdbp5[address] [place] [address]Dr. Ricardo Rocha CAST NONE SEEN Normal NONE SEEN [facility] Comment on above: Performed By: #### U AMIC ####[facility] Qmoymfatev5034 [place] [address]Dr. Ricardo Rocha Clarity (U) CLEAR Normal CLEAR [facility] Comment on above: Performed By: #### U AMIC ####[facility] Tmjnbbvbaz9731 [place] [address]Dr. Ricardo Rocha Color (U) LT. YELLOW Normal YELLOW [facility] Comment on above: Performed By: #### U AMIC ####[facility] Hklkslpetz1826 [place] [address]Dr. Ricardo Aj Crystals LM Nom (Urine sed) NONE SEEN Normal NONE SEEN [facility] Comment on above: Performed By: #### U AMIC ####[facility] Fridggmuxx7623 [place] [address]Dr. Ricardo Aj Epithelial cells LM Ql (Urine sed) NONE SEEN Normal NONE SEEN /RARE [facility] Comment on above: Performed By: #### U AMIC ####[facility] Iktgqpblbm[address] [place], [place] [address]Dr. Ricardo Rocha Glucose Ql (U) Negative Normal NEGATIVE [facility] Comment on above: Performed By: #### U AMIC ####[facility] Nywyoibexz[address] [place], [place] [address]Dr. Ricardo Rocha Hemoglobin Ql (U) Negative Normal NEGATIVE [facility] Comment on above: Performed By: #### U AMIC ####[facility] W[address]cf[address] [place], [place] [address]Dr. Ricardo Rocha Ketones Ql (U) Negative Normal NEGATIVE [facility] Comment on above: Performed By: #### U AMIC ####[facility] Vvnrxjwidm[address] [place], [place] [address]Dr. Yimarcial Rocha LEUKOCYTES Negative Normal NEGATIVE [facility] Comment on above: Performed By: #### U AMIC ####[facility] Tstdjaayub2214 [place] [address]Dr. Yilan Rocha MUCOUS NONE SEEN Normal NONE SEEN [facility] Comment on above: Performed By: #### U AMIC ####[facility] Ehjxlrbfgl[address] [place], [place] [address]Dr. Yilan Rocha Nitrite Ql (U) Negative Normal NEGATIVE [facility] Comment on above: Performed By: #### U AMIC ####[facility] Dyinujldxa[address] [place], [place] [address]Dr. Yilan Rocha pH (U) 5.5 [pH] Normal 5-9 [facility] Comment on above: Performed By: #### U AMIC ####[facility] Woxqduxqgf0956 [place] [address]Dr. Ricardo Rocha RBC NONE SEEN Abnormal 0-2 [facility] Comment on above: Performed By: #### U AMIC ####[facility] Rexxerwejd40[address] [place] [address]Dr. Ricardo Rocha SPEC GRAVITY 1.020 Normal 1.005-<=1.02 5 [facility] Comment on above: Performed By: #### U AMIC ####[facility] Gkodnjnrno9000 [place] [address]Dr. Ricardo Rocha UA PROTEIN Negative Normal NEGATIVE/ TRACE [facility] Comment on above: Performed By: #### U AMIC ####[facility] Wtzcluwvhk1376 [place] [address]Dr. Ricardo Rocha Urobilinogen Qn (U) 0.2 {Madeleine'U}/dL Normal 0.2 - 1. 0 [facility] Comment on above: Performed By: #### U AMIC ####[facility] Qsxlkleyuv[address] [place], [place] [address]Dr. Ricardo Rocha WBC NONE SEEN Normal NONE SEEN [facility] Comment on above: Performed By: #### U AMIC ####[facility] Gwazvlyxkg8785 [place] [address]Dr. Ricardo Rocha CBC W MANUAL DIFFon 06-16-20 22 ATYPICAL LYMPH # Normal [facility] Comment on above: Performed By: #### C DWAINE ####[facility] Hjvptgqyas2761 [place] [address]Dr. Ricardo Rocha ATYPICAL LYMPH % Normal [facility] Comment on above: Performed By: #### C BCRED ####[facility] Cmnoaaytwo9438 [place] [address]Dr. Ricardo Rocha BAND # 0.2 103/ul Normal 0.0-0.3 [facility] Comment on above: Performed By: #### C DWAINE ####[facility] Oyhwcwgaey2360 [place] [address]Dr. Ricardo Rocha BAND % 2 % Normal 0-5 [facility] Comment on above: Performed By: #### C BCRED ####[facility] Hurlvpnikf9043 [place] [address]Dr. Ricardo Rocha BASOM # 0.00 103/ul Normal 0.00-0.10 [facility] Comment on above: Performed By: #### C BCRED ####[facility] Jylningnbe0595 [place] [address]Dr. Ricardo Rocha BASOM % 0.0 % Critically low 0.2-2.0 [facility] Comment on above: Performed By: #### C BCRED ####[facility] Sztxwohzyf[address] [place], [place] [address]Dr. Ricardo Rocha BLAST # Normal [facility] Comment on above: Performed By: #### C DWAINE ####[facility] Sspofbzbad[address] [place], [place] [address]Dr. Ricardo Rocha BLAST % Normal [facility] Comment on above: Performed By: #### C DWAINE ####[facility] Ocxxqumghs[address] [place], [place] [address]Dr. Ricardo Rocha CORRECTED WBC Normal 4.0-11.0 [facility] Comment on above: Performed By: #### C DWAINE ####[facility] Azrqgwhpis4490 [place] [address]Dr. Ricardo Rocha EOS # 0.11 103/ul Normal 0.00-0.70 [facility] Comment on above: Performed By: #### C BCRED ####[facility] Zexfqlqcls8970 [place] [address]Dr. Ricardo Rocha EOS% 1.0 % Normal 0.9-7.0 [facility] Comment on above: Performed By: #### C BCRED ####[facility] Icrrcqqrwr6393 [place] [address]Dr. Ricardo Rocha HCT 24.2 % Critically low 36.0-48.0 [facility] Comment on above: Performed By: #### C BCRED ####[facility] Boukmxkdck5277 [place], [place] [address]Np. Ricardo Rocha HGB 7.9 g/dl Critically low 12.0-16.0 [facility] Comment on above: Performed By: #### C DWAINE ####[facility] Eqiiqtpxwk9181 [place], [place] [address]Xg. Ricardo Rocha LYMPHM # 1.81 103/ul Normal 1.20-3.80 [facility] Comment on above: Performed By: #### C DWAINE ####[facility] Sfmjgpkzkb2015 [place], [place] [address]Sm. Ricardo Rocha LYMPHM% 16.0 % Critically low 20.5-60.0 [facility] Comment on above: Performed By: #### C DWAINE ####[facility] Jgdhjqdorg2216 [place], [place] [address]Rc. Ricardo Rocha MCH 25.2 pg Critically low 26.7-34.0 [facility] Comment on above: Performed By: #### C DWAINE ####[facility] Chqeyqlbmb6221 [place], [place] [address]Lx. Ricardo Rocha MCHC 32.6 g/dl Normal 29.9-35.2 [facility] Comment on above: Performed By: #### C DWAINE ####[facility] Rraqrrjqyk2930 [place], [place] [address]Sq. Ricardo Rocha MCV 77.3 fL Critically low 81.0-99.0 [facility] Comment on above: Performed By: #### C DWAINE ####[facility] Hlfthdtjgr1524 [place], [place] [address]Md. Ricardo Rocha METAMYELOCYTE # 0.5 103/ul Normal [facility] Comment on above: Performed By: #### C DWAINE ####[facility] Droknjmhuq1108 [place], [place] [address]Mz. Ricardo Rocha METAMYELOCYTE % 4 % Normal [facility] Comment on above: Performed By: #### C DWAINE ####[facility] Qcscctwgkl7505 [place], [place] [address]Il. Ricardo Rocha MONOM# 0.45 103/ul Normal 0.30-0.80 [facility] Comment on above: Performed By: #### C DWAINE ####[facility] Nztjnmtuog4213 [place] [address]Dr. Ricardo Rocha MONOM% 4.0 % Normal 1.7-12.0 [facility] Comment on above: Performed By: #### C DWAINE ####[facility] Hxykkmnaec0694 [place] [address]Dr. Ricardo Rocha MPV 10.4 fL Normal 9.5-13.5 [facility] Comment on above: Performed By: #### C DWAINE ####[facility] Depugknmdq5966 [place] [address]Dr. Ricardo Rocha MYELOCYTE # 0.5 103/ul Normal [facility] Comment on above: Performed By: #### C DWAINE ####[facility] Lufmmxupnz[address] [place], [place] [address]Dr. Ricardo Rocha MYELOCYTE % 4 % Normal [facility] Comment on above: Performed By: #### C DWAINE ####[facility] Josvfqalvw[address] [place], [place] [address]Dr. Ricardo Rocha NRBC Normal [facility] Comment on above: Performed By: #### C DWAINE ####[facility] Fnbvxebhzo2075 [place] [address]Dr. Ricardo Rocha PLT 325 103/ul Normal 150-450 [facility] Comment on above: Performed By: #### C DWAINE ####[facility] Uwekczpslq3629 [place] [address]Dr. Ricardo Rocha RBC 3.13 106/ul Critically low 4.20-5.40 [facility] Comment on above: Performed By: #### C DWAINE ####[facility] Xeueqghafd7315 [place] [address]Dr. Ricardo Rocha RDW 13.7 % Normal 11.0-15.0 [facility] Comment on above: Performed By: #### C DWAINE ####[facility] Sxdiwbvlyn8477 [place] [address]Dr. Ricardo Rocha SEG # 7.80 103/ul Critically high 1.40-6.50 [facility] Comment on above: Performed By: #### C DWAINE ####[facility] Ggmsqelmyg1640 [place] [address]Dr. Ricardo Rocha SEG % 69.0 % Normal 43.0-75.0 [facility] Comment on above: Performed By: #### C BCMAN ####[facility] Ffhcxjiwxj7891 [place] [address]Dr. Ricardo Rocha WBC 11.3 103/ul Critically high 4.0-11.0 [facility] Comment on above: Performed By: #### C DWAINE ####[facility] Czsqoiprth2080 [place] [address]Dr. Ricardo Rocha PROF 14(COMP METB)on 022 Albumin [Mass/Vol] 1.7 g/dL Critically low 3.4-5.0 [facility] Comment on above: Performed By: #### C MP ####[facility] Vjrtduimiv3951 [place] [address]Dr. Ricardo Rocha Albumin/Globulin [Mass ratio] 0.4 {ratio} Normal [facility] Comment on above: Performed By: #### C MP ####[facility] Xvxiqbcnhp[address] [place], [place] [address]Dr. Ricardo Rocha ALP [Catalytic activity/Vol] 174 U/L Critically high 46-116 [facility] Comment on above: Performed By: #### C MP ####[facility] Mfumwabxnv9460 [place] [address]Dr. Ricardo Rocha ALT [Catalytic activity/Vol] 14 U/L Normal 14-59 [facility] Comment on above: Performed By: #### C MP ####[facility] Oelpklxjxf10[address] [place], [place] [address]Dr. Ricardo Rocha Anion gap [Moles/Vol] 10.8 mmol/L Normal [facility] Comment on above: Performed By: #### C MP ####[facility] Xqpyywibhk3831 [place] [address]Dr. Ricardo Rocha AST [Catalytic activity/Vol] 13 U/L Critically low 15-37 [facility] Comment on above: Performed By: #### C MP ####[facility] Tbzxotunbs7764 [place] [address]Dr. Ricardo Rocha Bilirubin [Mass/Vol] 0.3 mg/dL Normal 0.2-1.0 [facility] Comment on above: Performed By: #### C MP ####[facility] Fibhnglvtl33[address] [place], [place] [address]Dr. Ricardo Rocha Calcium [Mass/Vol] 8.2 mg/dL Critically low 8.5-10.1 [facility] Comment on above: Performed By: #### C MP ####[facility] Wmxztykpof11[address] [place], [place] [address]Dr. Ricardo Rocha Chloride [Moles/Vol] 104 mmol/L Normal 98-107 [facility] Comment on above: Performed By: #### C MP ####[facility] Aeaspfeelr13[address] [place], [place] [address]Dr. Ricardo Rocha CO2 [Moles/Vol] 22.4 mmol/L Normal 21.0-32.0 [facility] Comment on above: Performed By: #### C MP ####[facility] Sireokzyrt57[address] [place], [place] [address]Dr. Ricardo Rocha Creatinine [Mass/Vol] 1.29 mg/dL Critically high 0.55-1.02 [facility] Comment on above: Performed By: #### C MP ####[facility] Vuuwiltiyn8[address] [place], [place] [address]Dr. Ricardo Rocha EGFR-AF WALLISIAN 50 mL/min/1.73m2 Critically low >=60 [facility] Comment on above: Performed By: #### C MP ####[facility] Guvgfqkksf6[address] [place], [place] [address]Dr. Ricardo Rocha EGFR-NON AF WALLISIAN 42 mL/min/1.73m2 Critically low >=60 [facility] Comment on above: Performed By: #### C MP ####[facility] Nxmkpwxbcr6128 [place] [address]Dr. Ricardo Rocha Globulin (S) [Mass/Vol] 4.8 g/dL Normal [facility] Comment on above: Performed By: #### C MP ####[facility] Kfgjhrmlqw2158 [place] [address]Dr. Ricardo Rocha Glucose [Mass/Vol] 262 mg/dL Critically high 74-106 [facility] Comment on above: Performed By: #### C MP ####[facility] Evrhulyoze6930 [place] [address]Dr. Ricardo Rocha Potassium [Moles/Vol] 3.2 mmol/L Critically low 3.5-5.1 [facility] Comment on above: Performed By: #### C MP ####[facility] Xpypuhbwum[address] [place], [place] [address]Dr. Ricardo Rocha Protein [Mass/Vol] 6.5 g/dL Normal 6.4-8.2 [facility] Comment on above: Performed By: #### C MP ####[facility] Xjbzcvpxyy30[address] [place], [place] [address]Dr. Ricardo Rocha Sodium [Moles/Vol] 134 mmol/L Critically low 136-145 Th [facility] Comment on above: Performed By: #### C MP ####[facility] Zjrelyptrp7[address] [place], [place] [address]Dr. Ricardo Rocha Urea nitrogen [Mass/Vol] 20.0 mg/dL Critically high 7.0-18.0 [facility] Comment on above: Performed By: #### C MP ####[facility] Esqcwtyquq[address] [place], [place] [address]Dr. Ricardo Rocha Urea nitrogen/Creatinine [Mass ratio] 15.5 mg/mg Normal [facility] Comment on above: Performed By: #### C MP ####[facility] Lvcijjhnig0[address] [place], [place] [address]Dr. Ricardo Rocha CBC AUTO DIFFon 06-15-2022 BASO # 0.1 103/ul Normal 0.0-0.1 [facility] Comment on above: Performed By: #### C BC ####[facility] Xweyldivjk1792 [place] [address]Dr. Ricardo Rocha Basophils/100 WBC (Bld) 0.7 % Normal 0.2-2.0 [facility] Comment on above: Performed By: #### C BC ####[facility] Tdmspccjvl2192 [place] [address]Dr. Ricardo Rocha EO # 0.1 103/ul Normal 0.0-0.7 [facility] Comment on above: Performed By: #### C BC ####[facility] Wtysuminbo[address] [place], [place] [address]Dr. Ricardo Rocha Eosinophils/100 WBC (Bld) 0.7 % Critically low 0.9-7.0 [facility] Comment on above: Performed By: #### C BC ####[facility] Iofwdowhok[address] [place], [place] [address]Dr. Ricardo Rocha Erythrocyte distribution width (RBC) [Ratio] 13.7 % Normal 11.0-15.0 [facility] Comment on above: Performed By: #### C BC ####[facility] Nuapfibqas[address] [place], [place] [address]Dr. Ricardo Rocha Hematocrit (Bld) [Volume fraction] 26.7 % Critically low 36.0-48.0 [facility] Comment on above: Performed By: #### C BC ####[facility] Yuhjqyepol[address] [place], [place] [address]Dr. Ricardo Rocha Hemoglobin (Bld) [Mass/Vol] 8.4 g/dL Critically low 12.0-16.0 [facility] Comment on above: Performed By: #### C BC ####[facility] Wdqojmdove5321 [place] [address]Dr. Ricardo Rocha IG # 0.83 10e3/ul Critically high 0.00-0.03 [facility] Comment on above: Performed By: #### C BC ####[facility] Bcyjxnuznf[address] [place], [place] [address]Dr. Ricardo Rocha IG % 6.2 % Critically high 0.0-0.5 [facility] Comment on above: Performed By: #### C BC ####[facility] Rpmkijdqjj6528 [place] [address]Dr. Ricardo Rocha LYMPH # 1.3 103/ul Normal 1.2-3.8 [facility] Comment on above: Performed By: #### C BC ####[facility] Gxfitftfth3971 [place] [address]Dr. Ricardo Rocha Lymphocytes/100 WBC (Bld) 9.6 % Critically low 20.5-60.0 [facility] Comment on above: Performed By: #### C BC ####[facility] Eftbukpbvw4494 [place] [address]Dr. Ricardo Rocha MANUAL DIFF REQ NO Normal [facility] Comment on above: Performed By: #### C BC ####[facility] Blwmtgnzej5772 [place] [address]Dr. Ricardo Rocha MCH (RBC) [Entitic mass] 25.1 pg Critically low 26.7-34.0 [facility] Comment on above: Performed By: #### C BC ####[facility] Nzlgqxggbl[address] [place] [id number]. Ricardo Rocha MCHC (RBC) [Mass/Vol] 31.5 g/dL Normal 29.9-35.2 [facility] Comment on above: Performed By: #### C BC ####[facility] Tkrdbskcef90[address] [place] [phone]. Ricardo Rocha MCV (RBC) [Entitic vol] 79.7 fL Critically low 81.0-99.0 [facility] Comment on above: Performed By: #### C BC ####[facility] Ueprtplank72[address] [place] [id number]. Ricardo Rocha MONO # 1.0 103/ul Critically high 0.3-0.8 [facility] Comment on above: Performed By: #### C BC ####[facility] Boqueyssiw22[address] [place] [phone]. Ricardo Rocha Monocytes/100 WBC (Bld) 7.3 % Normal 1.7-12.0 [facility] Comment on above: Performed By: #### C BC ####[facility] Gqracxpdox7[address] [place] [address]Dr. Ricardo Rocah NEUT # 10.2 103/ul Critically high 1.4-6.5 [facility] Comment on above: Performed By: #### C BC ####[facility] Ebxigpchos2767 [place] [phone]. Ricardo Rocha Neutrophils/100 WBC (Bld) 75.5 % Critically high 43.0-75.0 [facility] Comment on above: Performed By: #### C BC ####[facility] Cqmfrjvatu4866 [place] [phone]. Ricardo Rocha Platelet mean volume (Bld) [Entitic vol] 11.8 fL Normal 9.5-13.5 [facility] Comment on above: Performed By: #### C BC ####[facility] Nthnpvkllz27[address] [place] [address]Dr. Ricardo Rocha PLT 208 103/ul Normal 150-450 [facility] Comment on above: Performed By: #### C BC ####[facility] Bnglrtj[address] [place], [place] [id number]. Ricardo Rocha RBC 3.35 106/ul Critically low 4.20-5.40 [facility] Comment on above: Performed By: #### C BC ####[facility] Ddnmxsqabq9010 [place] [phone]. Ricardo Rocha WBC 13.5 103/ul Critically high 4.0-11.0 [facility] Comment on above: Performed By: #### C BC ####[facility] Diqosnwlpc66[address] [place] [phone]. Ricardo Rocha CULTURE BLOODon 06-15-2022 Microscopic examination of blood, culture Culture Observations: NO GROWTH AT 5 DAYS Normal [facility] Comment on above: Performed By: #### B LDCX2 ####[facility] Tkxbbykdoq[address] [place] [address]Dr. Nanomarcial Rocha Microscopic examination of blood, culture Culture Observations: NO GROWTH AT 5 DAYS Normal [facility] Comment on above: Performed By: #### B LDCX1 ####[facility] Sumbgwmyoa[address] [place] [address]Dr. Ricardo Rocha [facility]22 SARS-CoV-2 (COVID-19) RNA ADRIEL+probe Ql (Unsp spec) Not detected Normal NOT DETECTED [facility] Comment on above: Result Comment: When [...] for this test is supported by the [place] of Health and Human Service's declaration that [...] be used). Performed By: #### C VDTBH ####[facility] Uqrmlmnzef[address] [place], [place] [address]Dr. Ricardo Rocha POINT OF CARE GLUCOSEon 05-22 Glucose [Mass/Vol] 366 mg/dL Critically high 74-106 [facility] Comment on above: Performed By: #### P OCGLUC ####[facility] Hbfkjaopxz2[address] [place] [address]Dr. Ricardo [facility] Glucose [Mass/Vol] 229 mg/dL Critically high 74-106 [facility] Comment on above: Performed By: #### P OCGLUC ####[facility] Qyjpialkxi86[address] [place], [place] [address]Dr. [facility] Glucose [Mass/Vol] 258 mg/dL Critically high 74-106 [facility] Comment on above: Performed By: #### P OCGLUC ####[facility] Lcsbwiqznv77[address] [place] [address]Dr. Ricardo Rocha PROF 14(COMP METB)on 022 Albumin [Mass/Vol] 1.8 g/dL Critically low 3.4-5.0 [facility] Comment on above: Performed By: #### C MP ####[facility] Segjgrczqp8[address] [place], [place] [address]Dr. Ricardo Rocha Albumin/Globulin [Mass ratio] 0.4 {ratio} Normal [facility] Comment on above: Performed By: #### C MP ####[facility] Ebuwqrathb50[address] [place], [place] [address]Dr. Ricardo Rocha ALP [Catalytic activity/Vol] 196 U/L Critically high 46-116 [facility] Comment on above: Performed By: #### C MP ####[facility] Wlkhseolvt37[address] [place], [place] [address]Dr. Ricardo Rocha ALT [Catalytic activity/Vol] 18 U/L Normal 14-59 [facility] Comment on above: Performed By: #### C MP ####[facility] Aexxmcjjsi5[address] [place], [place] [address]Dr. Ricardo Rocha Anion gap [Moles/Vol] 16.3 mmol/L Normal [facility] Comment on above: Performed By: #### C MP ####[facility] Mjauxfifcj52[address] [place], [place] [address]Dr. Ricardo Rocha AST [Catalytic activity/Vol] 22 U/L Normal 15-37 [facility] Comment on above: Performed By: #### C MP ####[facility] Mgpyedrhol[address] [place], [place] [address]Dr. Ricardo Rocha Bilirubin [Mass/Vol] 0.4 mg/dL Normal 0.2-1.0 [facility] Comment on above: Performed By: #### C MP ####[facility] Ocdmxgcmbi12[address] [place], [place] [address]Dr. Ricardo Rocha Calcium [Mass/Vol] 8.2 mg/dL Critically low 8.5-10.1 [facility] Comment on above: Performed By: #### C MP ####[facility] Vhfavkedhf9006 [place] [phone]. Ricardo Rocha Chloride [Moles/Vol] 103 mmol/L Normal 98-107 [facility] Comment on above: Performed By: #### C MP ####[facility] Tmunxqpwdw2698 [place] [address]Dr. Ricardo Rocha CO2 [Moles/Vol] 19.0 mmol/L Critically low 21.0-32.0 [facility] Comment on above: Performed By: #### C MP ####[facility] Pbbsmhjjqk4718 [place] [address]Dr. Ricardo Rocha Creatinine [Mass/Vol] 1.32 mg/dL Critically high 0.55-1.02 [facility] Comment on above: Performed By: #### C MP ####[facility] Apcnossbmm[address] [place], [place] [address]Dr. Ricardo Rocha EGFR-AF WALLISIAN 49 mL/min/1.73m2 Critically low >=60 [facility] Comment on above: Performed By: #### C MP ####[facility] Kweexnaimg[address] [place], [place] [address]Dr. Ricardo Rocha EGFR-NON AF WALLISIAN 41 mL/min/1.73m2 Critically low >=60 [facility] Comment on above: Performed By: #### C MP ####[facility] Wtvxddbdsc65[address] [place], [place] [address]Dr. Ricardo Rocha Globulin (S) [Mass/Vol] 5.0 g/dL Normal [facility] Comment on above: Performed By: #### C MP ####[facility] Mctqsashkg9[address] [place] [address]Dr. Ricardo Rocha Glucose [Mass/Vol] 228 mg/dL Critically high 74-106 [facility] Comment on above: Performed By: #### C MP ####[facility] Wotnygifac6[address] [place] [address]Dr. Ricardo Rocha Potassium [Moles/Vol] 3.3 mmol/L Critically low 3.5-5.1 [facility] Comment on above: Performed By: #### C MP ####[facility] Iuluvgmcgo9798 [place] [address]Dr. Nanomarcial Rocha Protein [Mass/Vol] 6.8 g/dL Normal 6.4-8.2 [facility] Comment on above: Performed By: #### C MP ####[facility] Opopetuakn3[address] [place] [address]Dr. Ricardo Rocha Sodium [Moles/Vol] 135 mmol/L Critically low 136-145 [facility] Comment on above: Performed By: #### C MP ####[facility] Noxpxtxdjp5[address] [place], [place] [address]Dr. Ricardo Rocha Urea nitrogen [Mass/Vol] 23.0 mg/dL Critically high 7.0-18.0 [facility] Comment on above: Performed By: #### C MP ####[facility] Lfgyuweecv36[address] [place], [place] [address]Dr. Ricardo Rocha Urea nitrogen/Creatinine [Mass ratio] 17.4 mg/mg Normal [facility] Comment on above: Performed By: #### C MP ####[facility] Nqwmdahybb88[address] [place], [place] [address]Dr. 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 Ricardo Rocha Clarity (U) CLEAR Normal CLEAR [facility] Comment on above: Performed By: #### U MICRO, UACSIND ####[facility] Nlbzovbwoi25[address] [place], [place] [address]Dr. Ricardo Rocha Color (U) LT. YELLOW Normal YELLOW [facility] Comment on above: Performed By: #### U MICRO, UACSIND ####[facility] Isiavpweac7094[address] [place], [place] [address]Dr. Ricardo Rocha Glucose Ql (U) 250 mg/dl Abnormal NEGATIVE [facility] Comment on above: Performed By: #### U MICRO, UACSIND ####[facility] Nmrvqtfleq4006 [place] [address]Dr. Ricardo Rocha Hemoglobin Ql (U) TRACE-LYSED Abnormal NEGATIVE [facility] Comment on above: Performed By: #### U MICRO, UACSIND ####[facility] Bzuqsaeeyx[address] [place], [place] [address]Dr. Ricardo Rocha Ketones Ql (U) 15 mg/dl Abnormal NEGATIVE [facility] Comment on above: Performed By: #### U MICRO, UACSIND ####[facility] Uftipdoidr69[address] [place], [place] [address]Dr. Ricardo Rocha LEUKOCYTES Negative Normal NEGATIVE [facility] Comment on above: Performed By: #### U MICRO, UACSIND ####[facility] Swhjochhtr38[address] [place], [place] [address]Dr. Ricardo Rocha Nitrite Ql (U) Negative Normal NEGATIVE [facility] Comment on above: Performed By: #### U MICRO, UACSIND ####[facility] Gtczfyxrfu8898[address] [place], [place] [address]Dr. Ricardo Rocha pH (U) 6.0 [pH] Normal 5-9 [facility] Comment on above: Performed By: #### U MICRO, UACSIND ####[facility] Aibxcbqykj75[address] [place], [place] [address]Dr. Ricardo Rocha SPEC GRAVITY 1.010 Normal 1.005-<=1.02 5 [facility] Comment on above: Performed By: #### U MICRO, UACSIND ####[facility] Vmtdhrljol13[address] [place], [place] [address]Dr. Ricardo Rocha UA PROTEIN Negative Normal NEGATIVE/ TRACE [facility] Comment on above: Performed By: #### U MICRO, UACSIND ####[facility] Gscpuygvax01[address] [place], [place] [address]Dr. Ricardo Rocha UR MICRO IND INDICATED Normal [facility] Comment on above: Performed By: #### U MICRO, UACSIND ####[facility] Jgkvondrbk9512[address] [place], [place] [address]Dr. Ricardo Rocha Urobilinogen Qn (U) 0.2 {Madeleine'U}/dL Normal 0.2 - 1. 0 [facility] Comment on above: Performed By: #### U MICRO, UACSIND ####[facility] Odhqostzqz37[address] [place] [address]Dr. Ricardo Rocha URINE MICROSCOPIC ONLYon BACTERIA NONE SEEN Normal NONE SEEN [facility] Comment on above: Performed By: #### U MICRO, UACSIND ####[facility] Akepslopaq8515[address] [place], [place] [address]Dr. Ricardo Rocha Bacteria identified Cx Nom (U) NOT INDICATED Normal [facility] Comment on above: Performed By: #### U MICRO, UACSIND ####[facility] Wplxcoznjf5554[address] [place], [place] [address]Dr. Ricardo Rocha CAST NONE SEEN Normal NONE SEEN [facility] Comment on above: Performed By: #### U MICRO, UACSIND ####[facility] Ahqhltxmwq18[address] [place], [place] [address]Dr. Ricardo Rocha Crystals LM Nom (Urine sed) NONE SEEN Normal NONE SEEN [facility] Comment on above: Performed By: #### U MICRO, UACSIND ####[facility] Xgznfnyubv3156[address] [place], [place] [address]Dr. Ricardo Rocha Epithelial cells LM Ql (Urine sed) FEW Abnormal NONE SEEN /RARE [facility] Comment on above: Performed By: #### U MICRO, UACSIND ####[facility] Lhkmffjoux3[address] [place], [place] [address]Dr. Ricardo Rocha MUCOUS NONE SEEN Normal NONE SEEN [facility] Comment on above: Performed By: #### U MICRO, UACSIND ####[facility] Vgauehchqj5[address] [place], [place] [address]Dr. Ricardo Rocha RBC 2-5 Abnormal 0-2 [facility] Comment on above: Performed By: #### U MICRO, UACSIND ####[facility] Pdgetqlmaf4[address] [place], [place] [address]Dr. Ricardo Rocha WBC 2-5 Abnormal NONE SEEN [facility] Comment on above: Performed By: #### U MICRO, UACSIND ####[facility] Ghxuoslkwi7229 [place] [phone]. Ricardo Rocha YEAST PRESENT Abnormal NONE SEEN [facility] Comment on above: Performed By: #### U MICRO, UACSIND ####[facility] Wrjxkesuax1350 [place] [phone]. Ricardo Aj CBC AUTO DIFFon 06-14-2022 BASO # 0.0 103/ul Normal 0.0-0.1 [facility] Comment on above: Performed By: #### C BC ####[facility] Uwtzmrcwpe34[address] [place], [place] [address]Dr. Ricardo Rocha Basophils/100 WBC (Bld) 0.4 % Normal 0.2-2.0 [facility] Comment on above: Performed By: #### C BC ####[facility] Mzogbqribb[address] [place], [place] [address]Dr. Ricardo Rocha EO # 0.0 103/ul Normal 0.0-0.7 [facility] Comment on above: Performed By: #### C BC ####[facility] Phjfcohxmh9937[address] [place], [place] [address]Dr. Ricardo Rocha Eosinophils/100 WBC (Bld) 0.4 % Critically low 0.9-7.0 [facility] Comment on above: Performed By: #### C BC ####[facility] Qifgilihju0255[address] [place], [place] [address]Dr. Ricardo Rocha Erythrocyte distribution width (RBC) [Ratio] 13.8 % Normal 11.0-15.0 [facility] Comment on above: Performed By: #### C BC ####[facility] Mqjehweabx35[address] [place], [place] [address]Dr. Ricardo Rocha Hematocrit (Bld) [Volume fraction] 26.2 % Critically low 36.0-48.0 [facility] Comment on above: Performed By: #### C BC ####[facility] Elntobdabl004[address] [place], [place] [address]Dr. Ricardo Rocha Hemoglobin (Bld) [Mass/Vol] 8.3 g/dL Critically low 12.0-16.0 [facility] Comment on above: Performed By: #### C BC ####[facility] Ypcqkzosxa3651 [place] [id number]. Ricardo Aj IG # 0.24 10e3/ul Critically high 0.00-0.03 [facility] Comment on above: Performed By: #### C BC ####[facility] Jqkjmthmwk4917 [place] [phone]. Ricardo Rocha IG % 2.3 % Critically high 0.0-0.5 [facility] Comment on above: Performed By: #### C BC ####[facility] Jkzvvsqebe5940 [place] [address]Dr. Ricardo Rocha LYMPH # 1.1 103/ul Critically low 1.2-3.8 [facility] Comment on above: Performed By: #### C BC ####[facility] Wwmwctvbnk8185 [place] [address]Dr. Ricardo Rocha Lymphocytes/100 WBC (Bld) 10.2 % Critically low 20.5-60.0 [facility] Comment on above: Performed By: #### C BC ####[facility] Ekkygsuemq7[address] [place] [address]Dr. Ricardo Rocha MANUAL DIFF REQ NO Normal [facility] Comment on above: Performed By: #### C BC ####[facility] Vbmwmvkdlt1782 [place] [phone]. Ricardo Rocha MCH (RBC) [Entitic mass] 25.5 pg Critically low 26.7-34.0 [facility] Comment on above: Performed By: #### C BC ####[facility] Wceptabluq1827 [place] [phone]. Ricardo Aj MCHC (RBC) [Mass/Vol] 31.7 g/dL Normal 29.9-35.2 [facility] Comment on above: Performed By: #### C BC ####[facility] Dihnvvoood7561 [place] [phone]. Ricardo Rocha MCV (RBC) [Entitic vol] 80.6 fL Critically low 81.0-99.0 [facility] Comment on above: Performed By: #### C BC ####[facility] Expqxufgfl1283 [place] [phone]. Ricardo Rocha MONO # 0.7 103/ul Normal 0.3-0.8 [facility] Comment on above: Performed By: #### C BC ####[facility] Evskpitlxi7487 [place] [address]Dr. Ricardo Rocha Monocytes/100 WBC (Bld) 6.7 % Normal 1.7-12.0 [facility] Comment on above: Performed By: #### C BC ####[facility] Gejdvjahbh1359 [place] [address]Dr. Ricardo Rocha NEUT # 8.5 103/ul Critically high 1.4-6.5 [facility] Comment on above: Performed By: #### C BC ####[facility] Nteowsrvbh[address] [place], [place] [address]Dr. Ricardo Rocha Neutrophils/100 WBC (Bld) 80.0 % Critically high 43.0-75.0 [facility] Comment on above: Performed By: #### C BC ####[facility] Ifxlpyysqz3133 [place] [address]Dr. Ricardo Rocha Platelet mean volume (Bld) [Entitic vol] 12.1 fL Normal 9.5-13.5 [facility] Comment on above: Performed By: #### C BC ####[facility] Cuwqdxyfqf5005 [place] [phone]. Ricardo Rocha PLT 173 103/ul Normal 150-450 [facility] Comment on above: Performed By: #### C BC ####[facility] Qmmjdhtgth0085 [place] [phone]. Ricardo Rocha RBC 3.25 106/ul Critically low 4.20-5.40 [facility] Comment on above: Performed By: #### C BC ####[facility] Zsmyiamyye8884 [place] [phone]. Ricardo Rocha WBC 10.6 103/ul Normal 4.0-11.0 [facility] Comment on above: Performed By: #### C BC ####[facility] Tciyycvixe1949 [place] [phone]. Ricardo Rocha POINT OF CARE GLUCOSEon 05-22 Glucose [Mass/Vol] 237 mg/dL Critically high -106 [facility] Comment on above: Performed By: #### P OCGLUC ####[facility] Cgysfvhcly4695 [place] [phone]. Ricardo Rocha Glucose [Mass/Vol] 296 mg/dL Critically high -106 [facility] Comment on above: Performed By: #### P OCGLUC ####[facility] Vzozlovysn9126 [place] [phone]. Ricardo Aj Glucose [Mass/Vol] 406 mg/dL Critically high -106 [facility] Comment on above: Performed By: #### P OCGLUC ####[facility] Gtezaxbvuj8724 [place] [address]Dr. Ricardo Rocha Glucose [Mass/Vol] 447 mg/dL Critically high -[address] [place] [address] Comment on above: Performed By: #### P OCGLUC ####[facility] Hnbjumhlyr2988 [place] [phone]. Ricardo Rocha Glucose [Mass/Vol] 319 mg/dL Critically high [address] [place] [address] Comment on above: Performed By: #### P OCGLUC ####[facility] Wejzhovdut7120 [place] [address]Dr. Ricardo Rocha PROF 14(COMP METB)on 022 Albumin [Mass/Vol] 1.6 g/dL Critically low 3.4-5.0 [facility] Comment on above: Performed By: #### C MP ####[facility] Eptetvxura1732 [place] [address]Dr. Ricardo Rocha Albumin/Globulin [Mass ratio] 0.3 {ratio} Normal [facility] Comment on above: Performed By: #### C MP ####[facility] Eyzmhvrtff4877 [place] [phone]. Ricardo Rocha ALP [Catalytic activity/Vol] 201 U/L Critically high 46-116 [facility] Comment on above: Performed By: #### C MP ####[facility] Slnjjdujkj3001 [place] [address]Dr. Ricardo Rocha ALT [Catalytic activity/Vol] 23 U/L Normal 14-59 [facility] Comment on above: Performed By: #### C MP ####[facility] Xqjscunlcd8040 [place] [phone]. Ricardo Aj Anion gap [Moles/Vol] 16.0 mmol/L Normal [facility] Comment on above: Performed By: #### C MP ####[facility] Cowrwqhzlx2384 [place] [phone]. Ricardo Aj AST [Catalytic activity/Vol] 21 U/L Normal 15-37 [facility] Comment on above: Performed By: #### C MP ####[facility] Bhreibwufd7929 [place] [address]Dr. Ricardo Rocha Bilirubin [Mass/Vol] 0.4 mg/dL Normal 0.2-1.0 [facility] Comment on above: Performed By: #### C MP ####[facility] Idefhcmstf8144 [place] [phone]. Nanoamrcial Rocha Calcium [Mass/Vol] 7.6 mg/dL Critically low 8.5-10.1 [facility] Comment on above: Performed By: #### C MP ####[facility] Lurlwhvyzv38[address] [place] [address]Dr. Ricardo Rocha Chloride [Moles/Vol] 105 mmol/L Normal 98-107 [facility] Comment on above: Performed By: #### C MP ####[facility] Tisvhwdixh0933 [place] [phone]. Nanomarcial Rocha CO2 [Moles/Vol] 17.3 mmol/L Critically low 21.0-32.0 [facility] Comment on above: Performed By: #### C MP ####[facility] Gjmhykjola2871 [place] [address]Dr. Ricardo Rocha Creatinine [Mass/Vol] 1.54 mg/dL Critically high 0.55-1.02 [facility] Comment on above: Performed By: #### C MP ####[facility] Ajbkkvzfgw8709 [place] [phone]. Ricardo Rocha EGFR-AF WALLISIAN 41 mL/min/1.73m2 Critically low >=60 [facility] Comment on above: Performed By: #### C MP ####[facility] Xoaszpzcml1143 [place] [address]Dr. Ricardo Rocha EGFR-NON AF WALLISIAN 34 mL/min/1.73m2 Critically low >=60 [facility] Comment on above: Performed By: #### C MP ####[facility] Khyxwwdhjk1580 [place] [phone]. Ricardo Aj Globulin (S) [Mass/Vol] 4.7 g/dL Normal [facility] Comment on above: Performed By: #### C MP ####[facility] Trubgbwuis0255 [place] [address]Dr. Riacrdo Rocha Glucose [Mass/Vol] 277 mg/dL Critically high 74-106 [facility] Comment on above: Performed By: #### C MP ####[facility] Oduawdyasq5440 [place] [phone]. Ricardo Aj Potassium [Moles/Vol] 3.3 mmol/L Critically low 3.5-5.1 [facility] Comment on above: Performed By: #### C MP ####[facility] Lxnoqyqxsl4597 [place] [phone]. Ricardo Aj Protein [Mass/Vol] 6.3 g/dL Critically low 6.4-8.2 [facility] Comment on above: Performed By: #### C MP ####[facility] Oplstlivlp9139 [place] [phone]. Ricardo Rocha Sodium [Moles/Vol] 135 mmol/L Critically low 136-145 [facility] Comment on above: Performed By: #### C MP ####[facility] Sjkfqwyegs2802 [place] [phone]. Ricardo Aj Urea nitrogen [Mass/Vol] 29.0 mg/dL Critically high 7.0-18.0 [facility] Comment on above: Performed By: #### C MP ####[facility] Pmxparcqqa[address] [place], [place] [address]Dr. Ricardo Rocha Urea nitrogen/Creatinine [Mass ratio] 18.8 mg/mg Normal [facility] Comment on above: Performed By: #### C MP ####[facility] Yteckvhhkw8[address] [place], [place] [address]Dr. Ricardo Rocha CBC AUTO DIFFon 06-13-2022 BASO # 0.0 103/ul Normal 0.0-0.1 [facility] Comment on above: Performed By: #### C BC ####[facility] Yuikuytsrn[address] [place], [place] [address]Dr. Ricardo Rocha Basophils/100 WBC (Bld) 0.2 % Normal 0.2-2.0 [facility] Comment on above: Performed By: #### C BC ####[facility] Lrejwxmnho[address] [place], [place] [address]Dr. Ricardo Rocha EO # 0.1 103/ul Normal 0.0-0.7 [facility] Comment on above: Performed By: #### C BC ####[facility] Hsrwcafvds[address] [place], [place] [address]Dr. Ricardo Rocha Eosinophils/100 WBC (Bld) 0.6 % Critically low 0.9-7.0 [facility] Comment on above: Performed By: #### C BC ####[facility] Mcqnnnavbt[address] [place], [place] [address]Dr. Ricardo Rocha Erythrocyte distribution width (RBC) [Ratio] 14.2 % Normal 11.0-15.0 [facility] Comment on above: Performed By: #### C BC ####[facility] Aoydttjmou53[address] [place], [place] [address]Dr. Ricardo Rocha Hematocrit (Bld) [Volume fraction] 27.9 % Critically low 36.0-48.0 [facility] Comment on above: Performed By: #### C BC ####[facility] Dxoaatcymk2[address] [place], [place] [address]Dr. Ricardo Rocha Hemoglobin (Bld) [Mass/Vol] 8.6 g/dL Critically low 12.0-16.0 [facility] Comment on above: Performed By: #### C BC ####[facility] Kvpgcuoufg2210 [place] [address]DrIrina Rocha IG # 0.08 10e3/ul Critically high 0.00-0.03 [facility] Comment on above: Performed By: #### C BC ####[facility] Zprlbrrddi9[address] [place] [address]Dr. Ricardo Rocha IG % 0.8 % Critically high 0.0-0.5 [facility] Comment on above: Performed By: #### C BC ####[facility] Zxrpckylvg081823 [address] [place], [place] [address]DrIrina Rocha LYMPH # 0.9 103/ul Critically low 1.2-3.8 [facility] Comment on above: Performed By: #### C BC ####[facility] Yvlikrivsw8[address] [place], [place] [address]DrIrina Rocha Lymphocytes/100 WBC (Bld) 8.9 % Critically low 20.5-60.0 [facility] Comment on above: Performed By: #### C BC ####[facility] Ekdfudywso34[address] [place], [place] [address]DrIrina Rocha MANUAL DIFF REQ NO Normal The [facility] Comment on above: Performed By: #### C BC ####[facility] Lnsrcphwgy45232[address] [place], [place] [address]DrIrina Rocha MCH (RBC) [Entitic mass] 25.1 pg Critically low 26.7-34.0 [facility] Comment on above: Performed By: #### C BC ####[facility] Targdinagx[address] [place], [place] [address]DrIrina Rocha MCHC (RBC) [Mass/Vol] 30.8 g/dL Normal 29.9-35.2 [facility] Comment on above: Performed By: #### C BC ####[facility] Xecioxzfne2422[address] [place], [place] [address]DrIrina Rocha MCV (RBC) [Entitic vol] 81.6 fL Normal 81.0-99.0 [facility] Comment on above: Performed By: #### C BC ####[facility] Pbbkaejdco5909[address] [place] [address] Ricardo Rocha MONO # 0.6 103/ul Normal 0.3-0.8 [facility] Comment on above: Performed By: #### C BC ####[facility] Iwvcusfncc8319[address] [place], [place] [address]DrIrina Mcgillmarcial Aj Monocytes/100 WBC (Bld) 5.7 % Normal 1.7-12.0 [facility] Comment on above: Performed By: #### C BC ####[facility] Qtcszljgqc9768[address] [place], [place] [address]DrIrina Mcgillmarcial Rocha NEUT # 8.4 103/ul Critically high 1.4-6.5 [facility] Comment on above: Performed By: #### C BC ####[facility] Ebmaxzfnjt69032[address] [place], [place] [address]DrIrina Rocha Neutrophils/100 WBC (Bld) 83.8 % Critically high 43.0-75.0 [facility] Comment on above: Performed By: #### C BC ####[facility] Dcacvefyzx18[address] [place], [place] [address]DrIrina Mcgillmarcial Aj Platelet mean volume (Bld) [Entitic vol] 12.1 fL Normal 9.5-13.5 [facility] Comment on above: Performed By: #### C BC ####[facility] Vluvummhbt2587[address] [place], [place] [address]DrIrina Mcgillmarcial Aj PLT 149 103/ul Critically low 150-450 [facility] Comment on above: Performed By: #### C BC ####[facility] Gihgzetfuj2127[address] [place], [place] [address]DrIrina Rocha RBC 3.42 106/ul Critically low 4.20-5.40 [facility] Comment on above: Performed By: #### C BC ####[facility] Msatqdxind2238[address] [place], [place] [address]DrIrina Rocha WBC 10.0 103/ul Normal 4.0-11.0 [facility] Comment on above: Performed By: #### C BC ####[facility] Gyeghnemji1928[address] [place], [place] [address]Dr. Ricardo Rocha CULTURE OTHERon 06-13-2022 CULTURE OTHER Normal [facility] Comment on above: Performed By: #### O THCX ####[facility] Rufrcguxbs118[address] [place], [place] [address]Dr. Ricardo Rocha CULTURE OTHER Normal [facility] Comment on above: Performed By: #### O THCX ####[facility] Uuxaaqhkhl9069[address] [place], [place] [address]Dr. Ricardo Rocha CULTURE OTHER Normal [facility] Comment on above: Performed By: #### O THCX ####[facility] Bqnqulxoel2947[address] [place], [place] [address]Dr. Ricardo Rocha GI PANEL (PCR)on 06-13-2022 Adenovirus F 40/41 Not detected Normal NOT DETECTED [facility] Comment on above: Performed By: #### G IPANEL ####[facility] Ebpmaxmfeo540[address] [place], [place] [address]Dr. Ricardo Rocha Astrovirus Not detected Normal NOT DETECTED [facility] Comment on above: Performed By: #### G IPANEL ####[facility] Lhpacpnllj0637[address] [place], [place] [address]Dr. Ricardo Rocha C. Diff toxin A/B Not detected Normal NOT DETECTED [facility] Comment on above: Performed By: #### G IPANEL ####[facility] Fxdtywbjyf018[address] [place], [place] [address]Dr. Ricardo Rocha Campylobacter Not detected Normal NOT DETECTED [facility] Comment on above: Performed By: #### G IPANEL ####[facility] Lwazkxlcel8106[address] [place], [place] [address]Dr. Ricardo Rocha Cryptosporidium Not detected Normal NOT DETECTED The [facility] Comment on above: Performed By: #### G IPANEL ####[facility] Aqiqqlvyqv212[address] [place], [place] [address]Dr. Ricardo Rocha Cyclos. Cayetanensis Not detected Normal NOT DETECTED [facility] Comment on above: Performed By: #### G IPANEL ####[facility] Ogddbpbkct0875[address] [place], [place] [address]Dr. Ricardo Rocha E. Coli O157 Not Applicable Normal Not Applicable [facility] Comment on above: Performed By: #### G IPANEL ####[facility] Ynixozpdjl312[address] [place], [place] [address]Dr. Ricardo Rocha E. histolytica Not detected Normal NOT DETECTED [facility] Comment on above: Performed By: #### G IPANEL ####[facility] Vcmhophgfa3827[address] [place], [place] [address]Dr. [facility] EAEC Not detected Normal NOT DETECTED [facility] Comment on above: Performed By: #### G IPANEL ####[facility] Dmrtyrrkfw2045[address] [place], [place] [address]Dr. [facility] EIEC Not detected Normal NOT DETECTED [facility] Comment on above: Performed By: #### G IPANEL ####[facility] Pnxqnflrzw021[address] [place], [place] [address]Dr. [facility] EPEC Not detected Normal NOT DETECTED [facility] Comment on above: Performed By: #### G IPANEL ####[facility] Tchyagjdns624523 [address] [place], [place] [address]Dr. [facility] Rocha ETEC Not detected Normal NOT DETECTED [facility] Comment on above: Performed By: #### G IPANEL ####[facility] Ewlkctmirw64[address] [place], [place] [address]Dr. Ricardo Rocha G. Lamblia Not detected Normal NOT DETECTED [facility] Comment on above: Performed By: #### G IPANEL ####[facility] Hggwfbcyac039[address] [place], [place] [address]Dr. Ricardo Rocha GIPANEL CONTROLS PASSED Normal The [facility] Comment on above: Performed By: #### G IPANEL ####[facility] Bstuyxennl2000[address] [place], [place] [address]Dr. Ricardo Rocha GIPNL MONIQUE HEADER GI PANEL BACTERIA Normal [facility] Comment on above: Performed By: #### G IPANEL ####[facility] Ndnzwmwlgz617823 [address] [place], [place] [address]Dr. Ricardo MARTINEZHD ECOLI GI PANEL DIARRHEAGEN IC E.COLI / SHIGELLA Normal [facility] Comment on above: Performed By: #### G IPANEL ####[facility] Xbbiiglvty299923 [address] [place], [place] [address]Dr. Ricardo Rocha GIPNLHD INFO SEE BELOW Normal [facility] Comment on above: Result Comment: EAEC - Enteroaggregative E. Coli EPEC- Enteropathogenic E. Coli ETEC- Enterotoxigenic E. Coli lt/st STEC- Shigella-like toxin-producing E. Coli stx1/stx2 EIEC- Shigella/Enteroinvasive E. Coli Performed By: #### G IPANEL ####[facility] Rthdrozhud54[address] [place], [place] [address]Dr. Ricardo Rocha GIPNLHD PARASITES GI PANEL PARASITES Normal [facility] Comment on above: Performed By: #### G IPANEL ####[facility] Nbaofmgfhr600523 [address] [place], [place] [address]Dr. Ricardo Rocha GIPALYSONHD VIRUS GI PANEL VIRUSES Normal The [facility] Comment on above: Performed By: #### G IPANEL ####[facility] Cjmefwwuyg56232[address] [place], [place] [address]Dr. Ricardo Rocha Norovirus GI/GII Not detected Normal NOT DETECTED [facility] Comment on above: Performed By: #### G IPANEL ####[facility] Kngeqqxims226923 [address] [place], [place] [address]Dr. Ricardo Rocha P. Shigelloides Not detected Normal NOT DETECTED [facility] Comment on above: Performed By: #### G IPANEL ####[facility] Jpxaogfvpl710923 [address] [place], [place] [address]Dr. Ricardo Rocha Rotavirus A Not detected Normal NOT DETECTED [facility] Comment on above: Performed By: #### G IPANEL ####[facility] Dzewndwzjm3460[address] [place], [place] [address]Dr. Ricardo Rocha Salmonella Not detected Normal NOT DETECTED [facility] Comment on above: Performed By: #### G IPANEL ####[facility] Oipnsjrhvy254[address] [place], [place] [address]Dr. Ricardo Rocha Sapovirus Not detected Normal NOT DETECTED [facility] Comment on above: Performed By: #### G IPANEL ####[facility] Qbpiorbgcm341823 [address] [place], [place] [address]Dr. Ricardo Rocha STEC Not detected Normal NOT DETECTED [facility] Comment on above: Performed By: #### G IPANEL ####[facility] Pdlsfrtkur336023 [address] [place], [place] [address]Dr. Ricardo Rocha Vibrio Not detected Normal NOT DETECTED [facility] Comment on above: Performed By: #### G IPANEL ####[facility] Visghklsri916523 [address] [place], [place] [address]Dr. Ricardo Rocha Vibrio Cholera Not detected Normal NOT DETECTED [facility] Comment on above: Performed By: #### G IPANEL ####[facility] Owcemxgdfs6716[address] [place], [place] [address]Dr. Ricardo Rocha Y. Enterocolitica Not detected Normal NOT DETECTED [facility] Comment on above: Performed By: #### G IPANEL ####[facility] Zpoythduoj1854[address] [place], [place] [address]Dr. Ricardo Rocha IRON AND TIBCon 06-13-2022 % SATURATION 19.9 % Normal [facility] Comment on above: Performed By: #### F ETIBC, B12FOL ####[facility] Kuyskkytcv6677[address] [place], [place] [address]Dr. Ricardo Rocha Iron [Mass/Vol] 75.0 ug/dL Normal 50.0-170.0 [facility] Comment on above: Performed By: #### F ETIBC, B12FOL ####[facility] Vpyjyuzisd25[address] [place], [place] [address]Dr. Ricardo Rocha TIBC DIRECT 376.0 ug/dL Normal 250.0-450.0 [facility] Comment on above: Performed By: #### F ETIBC, B12FOL ####[facility] Jqapvfnpnq4814[address] [place], [place] [address]Dr. Ricardo Rocha POINT OF CARE GLUCOSEon 05-22 Glucose [Mass/Vol] 238 mg/dL Critically high 74-106 [facility] Comment on above: Performed By: #### P OCGLUC ####[facility] [address] [place] [address]Dr. Ricardo Rocha Glucose [Mass/Vol] 146 mg/dL Critically high -106 [facility] Comment on above: Performed By: #### P OCGLUC ####[facility] Crutafbizx26[address] [place] [address]Dr. Ricardo Rocha Glucose [Mass/Vol] 143 mg/dL Critically high -106 [facility] Comment on above: Performed By: #### P OCGLUC ####[facility] Nwqpfprjbi3154 [place] [address]Dr. Ricardo Rocha Glucose [Mass/Vol] 205 mg/dL Critically high -106 [facility] Comment on above: Performed By: #### P OCGLUC ####[facility] Mxsurfnlox08[address] [place] [address]Dr. Ricardo Rocha Glucose [Mass/Vol] 227 mg/dL Critically high -106 [facility] Comment on above: Performed By: #### P OCGLUC ####[facility] Vympddtggd040[address] [place] [address]Dr. Ricardo Aj PROF 14(COMP METB)on 022 Albumin [Mass/Vol] 1.5 g/dL Critically low 3.4-5.0 [facility] Comment on above: Performed By: #### C MP ####[facility] Ogdhldxstg23[address] [place] [address]Dr. Ricardo Rocha Albumin/Globulin [Mass ratio] 0.3 {ratio} Normal [facility] Comment on above: Performed By: #### C MP ####[facility] Uayqveboxp84[address] [place] [address]Dr. Ricardo Rocha ALP [Catalytic activity/Vol] 136 U/L Critically high 46-116 [facility] Comment on above: Performed By: #### C MP ####[facility] Bizysxdxsd7284 [place] [address]Dr. Ricardo Rocha ALT [Catalytic activity/Vol] 18 U/L Normal 14-59 [facility] Comment on above: Performed By: #### C MP ####[facility] Rzzcbyfvup7[address] [place] [address]Dr. Ricardo Rocha Anion gap [Moles/Vol] 10.2 mmol/L Normal [facility] Comment on above: Performed By: #### C MP ####[facility] Xumnyocwzj7485[address] [place], [place] [address]Dr. Ricardo Rocha AST [Catalytic activity/Vol] 37 U/L Normal 15-37 [facility] Comment on above: Performed By: #### C MP ####[facility] Xqelrdomyl2057[address] [place], [place] [address]Dr. Ricardo Rocha Bilirubin [Mass/Vol] 0.4 mg/dL Normal 0.2-1.0 [facility] Comment on above: Performed By: #### C MP ####[facility] Gejatdatbv3628[address] [place], [place] [address]Dr. Ricardo Rocha Calcium [Mass/Vol] 8.0 mg/dL Critically low 8.5-10.1 [facility] Comment on above: Performed By: #### C MP ####[facility] Maubipjnhg5560[address] [place], [place] [address]Dr. Ricardo Rocha Chloride [Moles/Vol] 110 mmol/L Critically high 98-107 [facility] Comment on above: Performed By: #### C MP ####[facility] Owcvwjzvvu7309[address] [place], [place] [address]Dr. Ricardo Orcha CO2 [Moles/Vol] 18.2 mmol/L Critically low 21.0-32.0 [facility] Comment on above: Performed By: #### C MP ####[facility] Ppdiqnmemr1944[address] [place], [place] [address]Dr. Ricardo Rocha Creatinine [Mass/Vol] 1.76 mg/dL Critically high 0.55-1.02 [facility] Comment on above: Performed By: #### C MP ####[facility] Sgbnytniln9402 [place] [id number]. Ricardo Rocha EGFR-AF WALLISIAN 35 mL/min/1.73m2 Critically low >=60 [facility] Comment on above: Performed By: #### C MP ####[facility] Ubqvxmdmmv5486 [place] [address]Dr. Ricardo Rocha EGFR-NON AF WALLISIAN 29 mL/min/1.73m2 Critically low >=60 [facility] Comment on above: Performed By: #### C MP ####[facility] Giwgyuywsh0636 [place] [address]Dr. Ricardo Rocha Globulin (S) [Mass/Vol] 4.7 g/dL Normal [facility] Comment on above: Performed By: #### C MP ####[facility] Jjhveyuczk0513 [place] [address]Dr. Ricardo Rocha Glucose [Mass/Vol] 223 mg/dL Critically high 74-106 [facility] Comment on above: Performed By: #### C MP ####[facility] Numdyzenzd6366 [place] [address]Dr. Ricardo Rocha Potassium [Moles/Vol] 3.4 mmol/L Critically low 3.5-5.1 [facility] Comment on above: Performed By: #### C MP ####[facility] Kqdvffjwmh4576 [place] [address]Dr. Ricardo Rocha Protein [Mass/Vol] 6.2 g/dL Critically low 6.4-8.2 [facility] Comment on above: Performed By: #### C MP ####[facility] Djpliluerr18[address] [place] [address]Dr. Ricardo Rocha Sodium [Moles/Vol] 135 mmol/L Critically low 136-145 [facility] Comment on above: Performed By: #### C MP ####[facility] Ynphevxdmr4355[address] [place], [place] [address]Dr. Ricardo Rocha Urea nitrogen [Mass/Vol] 33.0 mg/dL Critically high 7.0-18.0 [facility] Comment on above: Performed By: #### C MP ####[facility] Clwyqqsyku9587 [place] [phone]. Ricardo Rocha Urea nitrogen/Creatinine [Mass ratio] 18.8 mg/mg Normal [facility] Comment on above: Performed By: #### C MP ####[facility] Mpeimdczbn4088 [place] [address]Dr. Ricardo Rocha VANCOMYCIN TROUGHon 06-13-20 22 VANCOMYCIN TROUGH 15.2 ug/ml Normal 5.0-20.0 [facility] Comment on above: Performed By: #### V ANCT ####[facility] Ayjofxxgfs[address] [place] [address]Dr. Ricardo Rocha VIT B12 AND FOLATEon 022 Cobalamin (Vitamin B12) [Mass/Vol] 874.0 pg/mL Normal 193.0-986.0 [facility] Comment on above: Performed By: #### F ETIBC, B12FOL ####[facility] Jmewxqrkyj7750[address] [place], [place] [address]Dr. Ricardo Rocha FOLATE 6.60 ng/mL Critically low 8.60-58.90 [facility] Comment on above: Performed By: #### F ETIBC, B12FOL ####[facility] Oeaexsoxwq344[address] [place], [place] [address]Dr. Ricardo Rocha XR FOOT LT MIN 3 VIEWSon XR FOOT LT MIN 3 VIEWS Normal [facility] CBC W MANUAL DIFFon 06-12-20 ATYPICAL LYMPH # Normal [facility] Comment on above: Performed By: #### C BCRED ####[facility] Fizjxohlaz[address] [place] [address]Dr. Ricardo Rocha ATYPICAL LYMPH % Normal [facility] Comment on above: Performed By: #### C BCRED ####[facility] Kjlvpksjgd9535[address] [place], [place] [address]Dr. Ricardo Rocha BAND # 1.9 103/ul Critically high 0.0-0.3 [facility] Comment on above: Performed By: #### C BCRED ####[facility] Acftloliww8414[address] [place], [place] [address]Dr. Ricardo Rocha BAND % 17 % Critically high 0-5 [facility] Comment on above: Performed By: #### C BCRED ####[facility] Geeycdehxp2684 [place] [phone]. Ricardo Rocha BASOM # 0.00 103/ul Normal 0.00-0.10 [facility] Comment on above: Performed By: #### C BCMAN ####[facility] Nmhhkmeiya3234 [place] [address]Dr. Ricardo Rocha BASOM % 0.0 % Critically low 0.2-2.0 [facility] Comment on above: Performed By: #### C BCMAN ####[facility] Kluyzpujqr38[address] [place] [address]Dr. Ricardo Rocha BLAST # Normal [facility] Comment on above: Performed By: #### C BCRED ####[facility] Xfwzcmaaaq6732[address] [place], [place] [address]Dr. Ricardo Rocha BLAST % Normal [facility] Comment on above: Performed By: #### C BCRED ####[facility] U[address]qxhzgcpr[address] [place], [place] [address]Dr. Ricardo Rocha CORRECTED WBC Normal 4.0-11.0 [facility] Comment on above: Performed By: #### C BCRED ####[facility] Bzpgnlhrgm[address] [place] [phone]. Ricardo Rocha EOS # 0.00 103/ul Normal 0.00-0.70 [facility] Comment on above: Performed By: #### C BCRED ####[facility] Pscxrijcsk7916 [place] [address]Dr. Ricardo Rocha EOS% 0.0 % Critically low 0.9-7.0 [facility] Comment on above: Performed By: #### C BCRED ####[facility] Tnonsyeshu8691 [place] [address]Dr. Ricardo Rocha HCT 28.0 % Critically low 36.0-48.0 [facility] Comment on above: Performed By: #### C BCRED ####[facility] Looqzaqajl4912 [place] [address]Dr. Ricardo Rocha HGB 8.6 g/dl Critically low 12.0-16.0 [facility] Comment on above: Performed By: #### C DWAINE ####[facility] Khvvhsunxs1530 [place] [address]Dr. Ricardo Rocha HYPOCHROMASIA SLIGHT Normal [facility] Comment on above: Performed By: #### C DWAINE ####[facility] Apafkcdfed1326 [place] [phone]. Ricardo Rocha LYMPHM # 0.77 103/ul Critically low 1.20-3.80 [facility] Comment on above: Performed By: #### C DWAINE ####[facility] Rtfcdebetl166[address] [place], [place] [address]Dr. Ricardo Rocha LYMPHM% 7.0 % Critically low 20.5-60.0 [facility] Comment on above: Performed By: #### C DWAINE ####[facility] Vfqelurgul7969[address] [place], [place] [address]Dr. Ricardo Rocha MCH 25.1 pg Critically low 26.7-34.0 [facility] Comment on above: Performed By: #### C DWAINE ####[facility] Nzqsaszqfx2890[address] [place], [place] [address]Dr. Ricardo Rocha MCHC 30.7 g/dl Normal 29.9-35.2 [facility] Comment on above: Performed By: #### C DWAINE ####[facility] Pbtajiydlk019[address] [place], [place] [address]Dr. Ricardo Rocha MCV 81.9 fL Normal 81.0-99.0 [facility] Comment on above: Performed By: #### C DWAINE ####[facility] Mhdjxogpso048[address] [place], [place] [address]Dr. Ricardo Rocha METAMYELOCYTE # Normal [facility] Comment on above: Performed By: #### C DWAINE ####[facility] Bddegbpcgv7217[address] [place], [place] [address]Dr. Ricardo Rocha METAMYELOCYTE % Normal [facility] Comment on above: Performed By: #### C DWAINE ####[facility] Gxukixqbuu8722 [place], [place] [address]Su. Ricardo Rocha MONOM# 0.11 103/ul Critically low 0.30-0.80 [facility] Comment on above: Performed By: #### C DWAINE ####[facility] Vuhcqqdtvx0422 [place], [place] [address]Hp. Ricardo oRcha MONOM% 1.0 % Critically low 1.7-12.0 [facility] Comment on above: Performed By: #### C DWAINE ####[facility] Ibisqjghtg8710 [place], [place] [address]Jk. Ricardo Rocha MPV 12.6 fL Normal 9.5-13.5 [facility] Comment on above: Performed By: #### C DWAINE ####[facility] Ezmtsddrse6301 [place] [phone]. Ricardo Rocha MYELOCYTE # Normal [facility] Comment on above: Performed By: #### Esteban ISIDRO ####[facility] Bucsiximgu3322 [place] [address]Dr. Ricardo Rocha MYELOCYTE % Normal [facility] Comment on above: Performed By: #### C DWAINE ####[facility] Azyyroevwf3644 [place] [address]Dr. Ricardo Rocha NRBC Normal [facility] Comment on above: Performed By: #### Esteban ISIDRO ####[facility] Uqxeumdwvj6200 [place] [phone]. Ricardo Rocha PLT 140 103/ul Critically low 150-450 [facility] Comment on above: Performed By: #### C DWAINE ####[facility] Drlwiwxywv8923 [place] [phone]. Ricardo Rocha RBC 3.42 106/ul Critically low 4.20-5.40 [facility] Comment on above: Performed By: #### C DWAINE ####[facility] Geybkgkcyc3[address] [place] [address]Dr. Ricardo Rocha RDW 13.7 % Normal 11.0-15.0 [facility] Comment on above: Performed By: #### C BCMAN ####[facility] Jqzeodhroc7[address] [place] [address]Dr. Ricardo Rocha SEG # 8.25 103/ul Critically high 1.40-6.50 [facility] Comment on above: Performed By: #### C BCMAN ####[facility] Labupdtxbb9113 [place] [address]Dr. Ricardo Rocha SEG % 75.0 % Normal 43.0-75.0 [facility] Comment on above: Performed By: #### C BCMAN ####[facility] Olecgcrxwa6395 [place] [address]Dr. Ricardo Rocha WBC 11.0 103/ul Normal 4.0-11.0 [facility] Comment on above: Performed By: #### C BCMAN ####[facility] Wrhtldcdhb0695 [place] [address]Dr. Ricardo Aj POINT OF CARE GLUCOSEon 05-22 Glucose [Mass/Vol] 200 mg/dL Critically high 74-106 [facility] Comment on above: Performed By: #### P OCGLUC ####[facility] Dreqxowgsq8555 [place] [address]Dr. Ricardo Aj Glucose [Mass/Vol] 165 mg/dL Critically high 74-106 [facility] Comment on above: Performed By: #### P OCGLUC ####[facility] Fwbpuiqfhu2281 [place] [address]Dr. Ricardo Rocha Glucose [Mass/Vol] 152 mg/dL Critically high 74-106 [facility] Comment on above: Performed By: #### P OCGLUC ####[facility] Blnissguyq5768 [place] [address]Dr. Ricardo Rocha Glucose [Mass/Vol] 154 mg/dL Critically high 74-106 [facility] Comment on above: Performed By: #### P OCGLUC ####[facility] Wyrsplcqhb3664 [place] [address]Dr. Ricardo Rocha PROF 14(COMP METB)on 022 Albumin [Mass/Vol] 1.9 g/dL Critically low 3.4-5.0 Th [facility] Comment on above: Performed By: #### C MP ####[facility] Qitmrexoep7643 [place] [address]Dr. Ricardo Rocha Albumin/Globulin [Mass ratio] 0.4 {ratio} Normal [facility] Comment on above: Performed By: #### C MP ####[facility] Ruxwoevzvz0683 [place] [address]Dr. Ricardo Rocha ALP [Catalytic activity/Vol] 68 U/L Normal 46-116 [facility] Comment on above: Performed By: #### C MP ####[facility] Jvaileqajj78[address] [place], [place] [address]Dr. Ricardo Rocha ALT [Catalytic activity/Vol] 16 U/L Normal 14-59 [facility] Comment on above: Performed By: #### C MP ####[facility] Rvoxbzpkzh205[address] [place], [place] [address]Dr. Ricardo Rocha Anion gap [Moles/Vol] 15.1 mmol/L Normal [facility] Comment on above: Performed By: #### C MP ####[facility] Pdauyucgjm[address] [place], [place] [address]Dr. Ricardo Rocha AST [Catalytic activity/Vol] 26 U/L Normal 15-37 [facility] Comment on above: Performed By: #### C MP ####[facility] Ootmoygdqw[address] [place], [place] [address]Dr. Ricardo Rocha Bilirubin [Mass/Vol] 0.3 mg/dL Normal 0.2-1.0 [facility] Comment on above: Performed By: #### C MP ####[facility] Aubqueskbb[address] [place], [place] [address]Dr. Ricardo Rocha Calcium [Mass/Vol] 8.0 mg/dL Critically low 8.5-10.1 [facility] Comment on above: Performed By: #### C MP ####[facility] Fufbasbdtj[address] [place], [place] [address]Dr. Ricardo Rocha Chloride [Moles/Vol] 110 mmol/L Critically high 98-107 [facility] Comment on above: Performed By: #### C MP ####[facility] Wvkouafatq6985 [place] [id number]. Ricardo Aj CO2 [Moles/Vol] 18.0 mmol/L Critically low 21.0-32.0 [facility] Comment on above: Performed By: #### C MP ####[facility] Ccxcmubthf0858 [place] [address]Dr. Ricardo Aj Creatinine [Mass/Vol] 1.97 mg/dL Critically high 0.55-1.02 [facility] Comment on above: Performed By: #### C MP ####[facility] Hhwvhpezat8[address] [place] [address]Dr. Nanomarcial Aj EGFR-AF WALLISIAN 31 mL/min/1.73m2 Critically low >=60 [facility] Comment on above: Performed By: #### C MP ####[facility] Isqluobgst8939 [place] [address]Dr. Ricardo Rocha EGFR-NON AF WALLISIAN 26 mL/min/1.73m2 Critically low >=60 [facility] Comment on above: Performed By: #### C MP ####[facility] Djbzhglzle8844 [place] [address]Dr. Ricardo Rocha Globulin (S) [Mass/Vol] 5.2 g/dL Normal [facility] Comment on above: Performed By: #### C MP ####[facility] Jfgjqnumxz3224 [place] [address]Dr. Ricardo Rocha Glucose [Mass/Vol] 146 mg/dL Critically high 74-106 [facility] Comment on above: Performed By: #### C MP ####[facility] Mtajddegrq2752 [place] [phone]. Ricardo Rocha Potassium [Moles/Vol] 3.1 mmol/L Critically low 3.5-5.1 [facility] Comment on above: Performed By: #### C MP ####[facility] Zfukecbsag6124 [place] [address]Dr. Ricardo Rocha Protein [Mass/Vol] 7.1 g/dL Normal 6.4-8.2 [facility] Comment on above: Performed By: #### C MP ####[facility] Ercfyifrzj7523 [place] [address]Dr. Ricardo Aj Sodium [Moles/Vol] 140 mmol/L Normal 136-145 [facility] Comment on above: Performed By: #### C MP ####[facility] Rrknmvkrhv[address] [place], [place] [address]Dr. Ricardo Aj Urea nitrogen [Mass/Vol] 30.0 mg/dL Critically high 7.0-18.0 [facility] Comment on above: Performed By: #### C MP ####[facility] Xeirnuapia[address] [place], [place] [address]Dr. Ricardo Aj Urea nitrogen/Creatinine [Mass ratio] 15.2 mg/mg Normal [facility] Comment on above: Performed By: #### C MP ####[facility] Xjanoqmnek23[address] [place], [place] [address]Dr. Nanomarcial Rocha CBC W MANUAL DIFFon 06-11-20 22 ATYPICAL LYMPH # Normal [facility] Comment on above: Performed By: #### C BCMAN ####[facility] Mrzppyvdtv15[address] [place], [place] [address]Dr. Ricardo Aj ATYPICAL LYMPH % Normal [facility] Comment on above: Performed By: #### C BCMAN ####[facility] Yzqtisdikv4[address] [place], [place] [address]Dr. Ricardo Rocha BAND # 1.1 103/ul Critically high 0.0-0.3 [facility] Comment on above: Performed By: #### C BCMAN ####[facility] Ecsuyovlmq74[address] [place], [place] [address]Dr. Ricardo Rocha BAND % 12 % Critically high 0-5 [facility] Comment on above: Performed By: #### C BCMAN ####[facility] Seczhmsgkp4735[address] [place], [place] [address]Dr. Ricardo Rocha BASOM # 0.00 103/ul Normal 0.00-0.10 [facility] Comment on above: Performed By: #### C BCMAN ####[facility] Bngyahsisy[address] [place] [address]Dr. Ricardo Rocha BASOM % 0.0 % Critically low 0.2-2.0 The [facility] Comment on above: Performed By: #### C BCMAN ####[facility] Drtcksrigm9082 [place] [address]Dr. Ricardo Rocha BLAST # Normal [facility] Comment on above: Performed By: #### C BCMAN ####[facility] Fpwevpmtme7107 [place] [address]Dr. Ricardo Rocha BLAST % Normal [facility] Comment on above: Performed By: #### C BCRED ####[facility] Jhxaorxffq9746 [place] [address]Dr. Ricardo Rocha CORRECTED WBC Normal 4.0-11.0 [facility] Comment on above: Performed By: #### C BCRED ####[facility] Gmjetroijz8151 [place] [address]Dr. Ricardo Rocha EOS # 0.00 103/ul Normal 0.00-0.70 [facility] Comment on above: Performed By: #### C BCRED ####[facility] Etepzpeckn[address] [place], [place] [address]Dr. Ricardo Rocha EOS% 0.0 % Critically low 0.9-7.0 [facility] Comment on above: Performed By: #### C BCRED ####[facility] Uegpuaiegy8106 [place] [address]Dr. Ricardo Rocha HCT 32.6 % Critically low 36.0-48.0 [facility] Comment on above: Performed By: #### C BCRED ####[facility] [address] [place], [place] [address]Dr. Ricardo Rocha HGB 10.5 g/dl Critically low 12.0-16.0 [facility] Comment on above: Performed By: #### C BCRED ####[facility] Rpccsgdhfb3876 [place] [address]Dr. Ricardo Rocha LYMPHM # 0.46 103/ul Critically low 1.20-3.80 [facility] Comment on above: Performed By: #### C DWAINE ####[facility] Zochvusccs1585 [place] [address]Dr. Ricardo Rocha LYMPHM% 5.0 % Critically low 20.5-60.0 [facility] Comment on above: Performed By: #### C DWAINE ####[facility] Ddpqmpnlqn4996 [place] [address]Dr. Ricardo Rocha MCH 25.3 pg Critically low 26.7-34.0 [facility] Comment on above: Performed By: #### C DWAINE ####[facility] Ktvgzskzig6058 [place] [address]Dr. Ricardo Rocha MCHC 32.2 g/dl Normal 29.9-35.2 [facility] Comment on above: Performed By: #### C DWAINE ####[facility] Lkpveydwdw0753 [place] [address]Dr. Ricardo Rocha MCV 78.6 fL Critically low 81.0-99.0 [facility] Comment on above: Performed By: #### C DWAINE ####[facility] Grzabwzjfz4438 [place] [address]Dr. Ricardo Rocha METAMYELOCYTE # Normal [facility] Comment on above: Performed By: #### C DWAINE ####[facility] Lycpjfliii3764 [place] [address]Dr. Ricardo Rocha METAMYELOCYTE % Normal [facility] Comment on above: Performed By: #### C DWAINE ####[facility] Xrrmpjxgfb8633 [place] [address]Dr. Ricardo Rocha MONOM# 0.28 103/ul Critically low 0.30-0.80 [facility] Comment on above: Performed By: #### C DWAINE ####[facility] Oaoshafnoj6709 [place] [address]Dr. Ricardo Rocha MONOM% 3.0 % Normal 1.7-12.0 [facility] Comment on above: Performed By: #### C DWAINE ####[facility] Zaeevhxcjh0497 [place], [place] [address]Kw. Ricardo Rocha MPV 11.4 fL Normal 9.5-13.5 [facility] Comment on above: Performed By: #### C DWAINE ####[facility] Ftkmpmanyp4816 [place], [place] [address]Ls. Ricardo Rocha MYELOCYTE # Normal [facility] Comment on above: Performed By: #### C DWAINE ####[facility] Nwlzghehrb3576 [place], [place] [address]Ci. Ricardo Rocha MYELOCYTE % Normal [facility] Comment on above: Performed By: #### C DWAINE ####[facility] Cytzvrmmqq5802 [place] [address]Dr. Ricardo Rocha NRBC Normal [facility] Comment on above: Performed By: #### C DWAINE ####[facility] Vohlfnezye5096 [place] [address]Dr. Ricardo Rocha PLT 154 103/ul Normal 150-450 [facility] Comment on above: Performed By: #### C DWAINE ####[facility] Abhsfbrxqa2161 [place], [place] [address]Dt. Ricardo Rocha RBC 4.15 106/ul Critically low 4.20-5.40 [facility] Comment on above: Performed By: #### C DWAINE ####[facility] Mtzuqflgdh3552 [place] [address]Dr. Ricardo Rocha RDW 12.8 % Normal 11.0-15.0 [facility] Comment on above: Performed By: #### C DWAINE ####[facility] Yknrcezuyc1451 [place] [address]Dr. Ricardo Rocha SEG # 7.36 103/ul Critically high 1.40-6.50 [facility] Comment on above: Performed By: #### C DWAINE ####[facility] Kvmnbxavfs3265 [place] [address]Dr. Ricardo Rocha SEG % 80.0 % Critically high 43.0-75.0 [facility] Comment on above: Performed By: #### C DWAINE ####[facility] Fpidmvgacb3784 [place], [place] [address]Fd. Ricardo Rocha WBC 9.2 103/ul Normal 4.0-11.0 [facility] Comment on above: Performed By: #### C BCMAN ####[facility] Cviswamjyf4658 [place] [phone]. Ricardo Rocha CT HEAD WO CONon 06-11-2022 CT HEAD WO CON Normal The [facility] CULTURE ANAEROBICon 06-11-20 CULTURE ANAEROBIC Culture Observations : NO GROWTH OF ANAEROBES AT 72 HOURS. Normal [facility] Comment on above: Performed By: #### A NACX ####[facility] Vpwoigkehv[address] [place], [place] [address]Dr. Ricardo Rocha CULTURE ANAEROBIC Culture Observations : NO GROWTH OF ANAEROBES AT 72 HOURS. [facility] Comment on above: Performed By: #### A NACX ####[facility] Qakxzjrebq4[address] [place], [place] [address]Dr. Ricardo Rocha CULTURE BLOODon 06-11-2022 Microscopic examination of blood, culture Culture Observations: Aerobic bottle positive only. Culture Observations: No growth at 5 days in anaerobic bottle Culture Observations: See for Susceptibility testing. Isolate 1 Staphylococcus aureus Growth of Normal [facility] Comment on above: Performed By: #### B LDCX2 ####[facility] Dtsmmpoefy[address] [place], [place] [address]Dr. Ricardo Rocha CULTURE URINEon 06-11-2022 CULTURE URINE Culture Observations : LIGHT GROWTH OF MIXED GENITAL SHAHLA. NO POTENTIAL PATHOGENS SEEN. Normal [facility] Comment on above: Performed By: #### U RCX ####[facility] Ahvzqwovqe[address] [place], [place] [address]Dr. Ricardo Rocha Covid-19 PCR (CVDTB)on 05-22 SARS-CoV-2 (COVID-19) RNA ADRIEL+probe Ql (Unsp spec) Not detected Normal NOT DETECTED [facility] Comment on above: Result Comment: When [...] for this test is supported by the Radar Systems Engineer of Health and Human Service's declaration that [...] be used). Performed By: #### C NEGRITO ####[facility] Iwlmlvkrqa05[address] [place], [place] [address]Dr. Ricardo Rocha ER URINE PROFILEon 2 Bilirubin Ql (U) Negative Normal NEGATIVE [facility] Comment on above: Performed By: #### SHAYNA ELENA ####[facility] Xdvzpprizb[address] [place], [place] [address]Dr. Ricardo Rocha Clarity (U) CLEAR Normal CLEAR [facility] Comment on above: Performed By: #### SHAYNA LEENA ####[facility] Jjszepshrx[address] [place], [place] [address]Dr. Ricardo Rocha Color (U) LT. YELLOW Normal YELLOW [facility] Comment on above: Performed By: #### SHAYNA ELENA ####[facility] Neodrjgjbx[address] [place], [place] [address]Dr. Ricardo Rocha ERUAHD A micrscopic examination will be performed if indicated. Normal [facility] Comment on above: Performed By: #### SHAYNA ELENA ####[facility] Dngvmygfys3[address] [place], [place] [address]Dr. Ricardo Rocha Glucose Ql (U) >1000 Abnormal NEGATIVE The [facility] Comment on above: Performed By: #### JOSLYN ELENARO ####[facility] Ivjtjnauya8550[address] [place], [place] [address]Dr. Ricardo Rocha Hemoglobin Ql (U) LARGE Abnormal NEGATIVE [facility] Comment on above: Performed By: #### Jennifer HINOJOSA UMICRO ####[facility] Jhgmpcvfpw2671 [place] [address]Dr. Ricardo Rocha Ketones Ql (U) 15 mg/dl Abnormal NEGATIVE [facility] Comment on above: Performed By: #### Jennifer HINOJOSA UMICRO ####[facility] Quhxsalblv4057 [place] [address]Dr. Ricardo Rocha LEUKOCYTES Negative Normal NEGATIVE [facility] Comment on above: Performed By: #### Jennifer HINOJOSA UMICRO ####[facility] Rmtouipaaz7707 [place] [address]Dr. Ricardo Rocha Nitrite Ql (U) Negative Normal NEGATIVE [facility] Comment on above: Performed By: #### LOLY ELENAICRO ####[facility] Dgfoldmfrz2794 [place] [address]Dr. Ricardo Rocha pH (U) 6.0 [pH] Normal 5-9 [facility] Comment on above: Performed By: #### LOLY ELENAICRO ####[facility] Hosfyjyudg[address] [place], [place] [address]Dr. Ricardo Rocha Protein (U) [Mass/Vol] 100 mg/dL Abnormal NEGATIVE/ TRACE [facility] Comment on above: Performed By: #### Jennifer HINOJOSA UMICRO ####[facility] Bbhhmuyutn14[address] [place], [place] [address]Dr. Ricardo Rocha SPEC GRAVITY 1.020 Normal 1.005-<=1.[address] [place] [address] Comment on above: Performed By: #### LOLY ELENAICRO ####[facility] Msxqwekkbi5069 [place] [address]Dr. Ricardo Rocha UR MICRO IND INDICATED Normal [facility] Comment on above: Performed By: #### Jennifer HINOJOSA UMICRO ####[facility] Yppzwxbkct4582 [place] [address]Dr. Ricardo Rocha Urobilinogen Qn (U) 0.2 {Madeleine'U}/dL Normal 0.2 - 1. 0 [facility] Comment on above: Performed By: #### E RUR, UMICRO ####[facility] Tmlstoyayu5260 [place] [address]Dr. Ricardo Rocha GRAM STAINon 06-11-2022 DIPHTHEROIDS Normal [facility] Comment on above: Performed By: #### G STAIN ####[facility] Rhvctwqxni0597 [place] [address]Dr. Ricardo Rocha EPITHELIALS Normal [facility] Comment on above: Performed By: #### G STAIN ####[facility] Vlxykgpksu5535 [place] [address]Dr. Ricardo Rocha FUNGAL ELEMENTS Normal [facility] Comment on above: Performed By: #### G STAIN ####[facility] Fxawgzvdpw[address] [place], [place] [address]Dr. Ricardo Rocha GRAM NEG BACILLI Normal [facility] Comment on above: Performed By: #### G STAIN ####[facility] Blzjjltvoq7[address] [place], [place] [address]Dr. Ricardo Rocha GRAM NEG DIPPLOCOCCI Normal [facility] Comment on above: Performed By: #### G STAIN ####[facility] Adxoxrlemf9[address] [place], [place] [address]Dr. Ricardo Rocha GRAM POS BACILLI Normal [facility] Comment on above: Performed By: #### G STAIN ####[facility] Dkyuirtqih0944 [place] [address]Dr. Ricardo Rocha GRAM POSITIVE COCCI MANY Normal The [facility] Comment on above: Performed By: #### G STAIN ####[facility] Rdrpozkmki9[address] [place], [place] [address]Dr. Ricardo Rocha GRAM STAIN SOURCE Left great toe tissu e after washout-clean Normal [facility] Comment on above: Performed By: #### G STAIN ####[facility] Vbwwwmgisi2599[address] [place], [place] [address]Dr. Ricardo Rocha GS_DIPTH Normal [facility] Comment on above: Performed By: #### G STAIN ####[facility] Qghqxdmdzn0627[address] [place], [place] [address]Dr. Ricardo Rocha WBC RARE Normal [facility] Comment on above: Performed By: #### G STAIN ####[facility] Krqwbcybah8668 [place] [address]Dr. Ricardo Rocha DIPHTHEROIDS Normal [facility] Comment on above: Performed By: #### G STAIN ####[facility] Ixpavmhzef1174 [place] [address]Dr. Ricardo Rocha EPITHELIALS Normal [facility] Comment on above: Performed By: #### G STAIN ####[facility] Agqvkcwijl47[address] [place], [place] [address]Dr. Ricardo Rocha FUNGAL ELEMENTS Normal [facility] Comment on above: Performed By: #### G STAIN ####[facility] Ruxebulvkp8[address] [place], [place] [address]Dr. Ricardo Rocha GRAM NEG BACILLI Normal [facility] Comment on above: Performed By: #### G STAIN ####[facility] Zawltelmco[address] [place], [place] [address]Dr. Ricardo Rocha GRAM NEG DIPPLOCOCCI Normal [facility] Comment on above: Performed By: #### G STAIN ####[facility] Vjbeceqrhf5[address] [place], [place] [address]Dr. Ricardo Rocha GRAM POS BACILLI Normal [facility] Comment on above: Performed By: #### G STAIN ####[facility] Cmxqjcgaei94[address] [place], [place] [address]Dr. Ricardo Rocha GRAM POSITIVE COCCI RARE Normal The [facility] Comment on above: Performed By: #### G STAIN ####[facility] Fyldzifxcp9599 [place] [address]Dr. Ricardo Rocha GRAM STAIN SOURCE Left great toe Normal [facility] Comment on above: Performed By: #### G STAIN ####[facility] Yfvdysaspp01[address] [place], [place] [address]Dr. Ricardo Rocha GS_DIPTH Normal [facility] Comment on above: Performed By: #### G STAIN ####[facility] Ylgpfiulmq57[address] [place], [place] [address]Dr. Ricardo Rocha WBC RARE Normal [facility] Comment on above: Performed By: #### G STAIN ####[facility] Lxukolrspn1314 [place] [address]Dr. Ricardo Rocha DIPHTHEROIDS Normal [facility] Comment on above: Performed By: #### G STAIN ####[facility] Hndhvqypnu4537 [place] [address]Dr. Ricardo Rocha EPITHELIALS Normal [facility] Comment on above: Performed By: #### G STAIN ####[facility] Dtuyvuzwjz9702 [place] [address]Dr. Ricardo Rocha FUNGAL ELEMENTS Normal [facility] Comment on above: Performed By: #### G STAIN ####[facility] Shibwcnjvh5424 [place] [address]Dr. Ricardo Rocha GRAM NEG BACILLI Normal [facility] Comment on above: Performed By: #### G STAIN ####[facility] Wkiiedfikk65[address] [place], [place] [address]Dr. Ricardo Rocha GRAM NEG DIPPLOCOCCI Normal [facility] Comment on above: Performed By: #### G STAIN ####[facility] Hrvhfpgpcb98[address] [place], [place] [address]Dr. Ricardo Rocha GRAM POS BACILLI Normal [facility] Comment on above: Performed By: #### G STAIN ####[facility] Ebbpevfafd8371 [place] [address]Dr. Ricardo Rocha GRAM POSITIVE COCCI FEW Normal The [facility] Comment on above: Performed By: #### G STAIN ####[facility] Lzerzhrynr6906 [place] [address]Dr. Ricardo Rocha GRAM STAIN SOURCE Left great toe abscess Normal [facility] Comment on above: Performed By: #### G STAIN ####[facility] Gtjzrlwddt2366 [place] [address]Dr. Ricardo Rocha GS_DIPTH Normal [facility] Comment on above: Performed By: #### G STAIN ####[facility] Aibqnmkhxv4834 [place] [address]Dr. Ricardo Rocha WBC FEW Normal [facility] Comment on above: Performed By: #### G STAIN ####[facility] Wcbaysahte3218 [place] [address]Dr. Ricardo Rocha LACTATE/LACTIC ACIDon 2021 Lactate [Moles/Vol] 2.2 mmol/L Critically high 0.4-1.9 [facility] Comment on above: Performed By: #### L ACT ####[facility] Oksgpdhmbo[address] [place], [place] [address]Dr. Ricardo Rocha POINT OF CARE GLUCOSEon 05-22 Glucose [Mass/Vol] 133 mg/dL Critically high [facility] Comment on above: Performed By: #### P OCGLUC ####[facility] Eqrbcafrvp[address] [place], [place] [address]Dr. Ricardo Rocha Glucose [Mass/Vol] 215 mg/dL Critically high [address] [place] [address] Comment on above: Performed By: #### P OCGLUC ####[facility] Gkxakxnjiu1320[address] [place], [place] [address]Dr. Ricardo Rocha Glucose [Mass/Vol] 207 mg/dL Critically high [address] [place] [address] Comment on above: Performed By: #### P OCGLUC ####[facility] Lesxqbjmgy[address] [place], [place] [address]Dr. Ricardo Rocha Glucose [Mass/Vol] 314 mg/dL Critically high [address] [place] [address] Comment on above: Performed By: #### P OCGLUC ####[facility] Rmwlhleesp35[address] [place], [place] [address]Dr. Ricardo Rocha Glucose [Mass/Vol] 496 mg/dL Critically high [facility] Comment on above: Performed By: #### P OCGLUC ####[facility] Mwthqcppnf75[address] [place], [place] [address]Dr. Ricardo Rocha Glucose [Mass/Vol] 561 mg/dL Critically high [address] [place] [address] Comment on above: Result Comment: Prev iously Confirmed Performed By: #### P OCGLUC ####[facility] Ikprhquucv53[address] [place], [place] [address]Dr. Ricardo Aj PROF 14(COMP METB)on 022 Albumin [Mass/Vol] 2.4 g/dL Critically low 3.4-5.0 [facility] Comment on above: Performed By: #### C MP ####[facility] Igiqpvwejr2149 [place] [address]Dr. Nanomarcial Aj Albumin/Globulin [Mass ratio] 0.4 {ratio} Normal [facility] Comment on above: Performed By: #### C MP ####[facility] Kpemqbgszk0543 [place] [address]Dr. Nanomarcial Aj ALP [Catalytic activity/Vol] 82 U/L Normal 46-116 [facility] Comment on above: Performed By: #### C MP ####[facility] Pwycrdhcwt[address] [place], [place] [address]Dr. Nanomarcial Aj ALT [Catalytic activity/Vol] 12 U/L Critically low 14-59 [facility] Comment on above: Performed By: #### C MP ####[facility] Ddsdttpsmb[address] [place], [place] [address]Dr. Ricardo Rocha Anion gap [Moles/Vol] 15.1 mmol/L Normal [facility] Comment on above: Performed By: #### C MP ####[facility] Hxsbagquof9[address] [place], [place] [address]Dr. Riacrdo Rocha AST [Catalytic activity/Vol] 14 U/L Critically low 15-37 [facility] Comment on above: Performed By: #### C MP ####[facility] Bvxgslawyx8139[address] [place], [place] [address]Dr. Ricardo Rocha Bilirubin [Mass/Vol] 0.4 mg/dL Normal 0.2-1.0 [facility] Comment on above: Performed By: #### C MP ####[facility] Vuarwpekke9135[address] [place], [place] [address]Dr. Ricardo Rocha Calcium [Mass/Vol] 8.8 mg/dL Normal 8.5-10.1 [facility] Comment on above: Performed By: #### C MP ####[facility] Djjxejnqov639[address] [place], [place] [address]Dr. Ricardo Rocha Chloride [Moles/Vol] 105 mmol/L Normal 98-107 [facility] Comment on above: Performed By: #### C MP ####[facility] Znrnmfcuxx8506 [place] [address]Dr. Ricardo Aj CO2 [Moles/Vol] 21.2 mmol/L Normal 21.0-32.0 [facility] Comment on above: Performed By: #### C MP ####[facility] Tmidvvcbmu8088 [place] [address]Dr. Ricardo Rocha Creatinine [Mass/Vol] 2.03 mg/dL Critically high 0.55-1.02 [facility] Comment on above: Performed By: #### C MP ####[facility] Jhhspfehle49[address] [place], [place] [address]Dr. Ricardo Rocha EGFR-AF WALLISIAN 30 mL/min/1.73m2 Critically low >=60 [facility] Comment on above: Performed By: #### C MP ####[facility] Zxbpnedaxj53[address] [place], [place] [address]Dr. Ricardo Rocha EGFR-NON AF WALLISIAN 25 mL/min/1.73m2 Critically low >=60 [facility] Comment on above: Performed By: #### C MP ####[facility] Aglehsldoz[address] [place], [place] [address]Dr. Ricardo Rocha Globulin (S) [Mass/Vol] 5.7 g/dL Normal [facility] Comment on above: Performed By: #### C MP ####[facility] Frdbgsvjrd4674 [place] [address]Dr. Ricardo Rocha Glucose [Mass/Vol] 309 mg/dL Critically high 74-106 [facility] Comment on above: Performed By: #### C MP ####[facility] Hvbzfbxlpq58[address] [place], [place] [address]Dr. Ricardo Rocha Potassium [Moles/Vol] 3.3 mmol/L Critically low 3.5-5.1 [facility] Comment on above: Performed By: #### C MP ####[facility] Vmtndpavbe54[address] [place], [place] [address]Dr. Ricardo Rocha Protein [Mass/Vol] 8.1 g/dL Normal 6.4-8.2 [facility] Comment on above: Performed By: #### C MP ####[facility] Cknfgmzlhj[address] [place], [place] [address]Dr. Nanomarcial Aj Sodium [Moles/Vol] 138 mmol/L Normal 136-145 [facility] Comment on above: Performed By: #### C MP ####[facility] Tcgiudrlra35[address] [place], [place] [address]Dr. Ricardo Rocha Urea nitrogen [Mass/Vol] 37.0 mg/dL Critically high 7.0-18.0 [facility] Comment on above: Performed By: #### C MP ####[facility] Rsbxmtcfhi05[address] [place], [place] [address]Dr. Ricardo Rocha Urea nitrogen/Creatinine [Mass ratio] 18.2 mg/mg Normal [facility] Comment on above: Performed By: #### C MP ####[facility] Xvhkojeptx0[address] [place], [place] [address]Dr. Ricardo Rocha SED RATE WESTERGREN 2021 SED RATE >130 Critically high <=30 [facility] Comment on above: Performed By: #### S EDR ####[facility] Yoinwiqmdc6[address] [place], [place] [address]Dr. Nanomarcial Aj URINE MICROSCOPIC ONLYon AMORPHOUS CRYSTALS MODERATE Normal [facility] Comment on above: Performed By: #### LOLY ELENAICRO ####[facility] Ludfewxsmt8[address] [place], [place] [address]Dr. Ricardo Rocha BACTERIA MODERATE Abnormal NONE SEEN [facility] Comment on above: Performed By: #### Jennifer HINOJOSA UMICRO ####[facility] Rylthkurwp3255[address] [place], [place] [address]Dr. Ricardo Rocha Bacteria identified Cx Nom (U) INDICATED Normal [facility] Comment on above: Performed By: #### Jennifer HINOJOSA UMICRO ####[facility] Cvnfjthctp5166[address] [place], [place] [address]Dr. Ricardo Rocha CAST NONE SEEN Normal NONE SEEN [facility] Comment on above: Performed By: #### JOSLYN ELENARO ####[facility] Zf[address]fporw[address] [place] [address]Dr. Ricardo Rocha Crystals LM Nom (Urine sed) SEEN Abnormal NONE SEEN [facility] Comment on above: Performed By: #### JOSLYN ELENARO ####[facility] Krgvlafbmc[address] [place] [address]Dr. Ricardo Rocha Epithelial cells LM Ql (Urine sed) NONE SEEN Normal NONE SEEN /RARE [facility] Comment on above: Performed By: #### Jennifer HINOJOSA UMICRO ####[facility] Gepkhoirsv[address] [place] [address]Dr. Ricardo Rocha MUCOUS NONE SEEN Normal NONE SEEN [facility] Comment on above: Performed By: #### JOSLYN ELENARO ####[facility] Dkjmnzresw7799[address] [place], [place] [address]Dr. Ricardo Rocha RBC 2-5 Abnormal 0-2 [facility] Comment on above: Performed By: #### Jennifer HINOJOSA UMYESENIARO ####[facility] Cwcygzslpj29[address] [place], [place] [address]Dr. Ricardo Rocha WBC 5-10 Abnormal NONE SEEN [facility] Comment on above: Performed By: #### JOSLYN ELENARO ####[facility] Plxjvormqg14[address] [place], [place] [address]Dr. Ricardo Rocha XR CHEST 1 Von 06-11-2022 XR CHEST 1 V Normal [facility] XR FOOT LT MIN 3 VIEWSon XR FOOT LT MIN 3 VIEWS Normal [facility] XR FOOT LT MIN 3 VIEWS Normal [facility] ACETONE SERUMon 06-10-2022 ACETONE Negative Normal NEGATIVE [facility] Comment on above: Performed By: #### A CETON ####[facility] Lhouzdhlfu7236[address] [place], [place] [address]Dr. Ricardo Rocha AMMONIAon 06-10-2022 Ammonia (P) [Mass/Vol] ug/dL Critically low 11-32 [facility] Comment on above: Performed By: #### A MM ####[facility] Ggxklmlajl58[address] [place] [address]Dr. Ricardo Rocha BLOOD CULTURE ID PANELon A. baumannii Not detected Normal NOT DETECTED [facility] Comment on above: Performed By: #### B CID2 ####[facility] Cumzyhzfmc[address] [place] [id number]. Ricardo Rocha Bacteriodes fragilis Not detected Normal NOT DETECTED [facility] Comment on above: Performed By: #### B CID2 ####[facility] Crscytmyvl8710 [place] [address]Dr. Yimarcial Rocha BCID CONTROLS PASSED Normal [facility] Comment on above: Performed By: #### B CID2 ####[facility] Lrzoblzcwr5[address] [place] [address]Dr. Ricardo Rocha BCIDBTHD BLOOD CULTURE BOTTLE INFORMATION Normal [facility] Comment on above: Performed By: #### B CID2 ####[facility] Cshvromymi15[address] [place] [address]Dr. Ricardo Rocha BCIDHD1 ANTIMICROBIAL RESISTANCE GENES Normal [facility] Comment on above: Performed By: #### B CID2 ####[facility] Qeiidihklx2404[address] [place], [place] [address]Dr. Ricardo Rocha BCIDHD2 SEE BELOW Normal [facility] Comment on above: Result Comment: Note : Antimicrobial resitance can occur via multiple mechanisms. A Not Detected result for the [employer] antomicrobial resistance gene assays does not indicate antimicrobial susceptibility. Subculturing is required for species identification and susceptibility testing of isolates. Performed By: #### B CID2 ####[facility] Cev[address]otjxs[address] [place] [address]Dr. Ricardo Rocha BCIDHD3 Positive Normal [facility] Comment on above: Performed By: #### B CID2 ####[facility] Joareqvkcq1956[address] [place], [place] [address]Dr. Ricardo Rocha BCIDHD4 Negative Normal [facility] Comment on above: Performed By: #### B CID2 ####[facility] Vfwkkqrbty15[address] [place] [address]Dr. Ricardo Rocha BCIDHD5 YEAST Normal [facility] Comment on above: Performed By: #### B CID2 ####[facility] Qdheswlfwo2598 [place] [address]Dr. Yilan Rocha Bottle Set: Set 1 Normal [facility] Comment on above: Performed By: #### B CID2 ####[facility] Emxsejzuqv0142 [place] [address]Dr. Yimarcial Rocha Bottle: Aerobic Normal [facility] Comment on above: Performed By: #### B CID2 ####[facility] Ymhusklwpm7164 [place] [address]Dr. Yimarcial Rocha C. neoformans/gattii Not detected Normal NOT DETECTED [facility] Comment on above: Performed By: #### B CID2 ####[facility] Vzuvwgvcns7937[address] [place], [place] [address]Dr. Yimarcial Rocha Lauren albicans Not detected Normal NOT DETECTED [facility] Comment on above: Performed By: #### B CID2 ####[facility] Mdlhxsirki3913[address] [place], [place] [address]Dr. Yimarcial Rocha Lauren auris Not detected Normal NOT DETECTED [facility] Comment on above: Performed By: #### B CID2 ####[facility] Rrgbumsgug1829[address] [place], [place] [address]Dr. Yilan Rocha Lauren glabrata Not detected Normal NOT DETECTED [facility] Comment on above: Performed By: #### B CID2 ####[facility] Ruvsocioxo9[address] [place], [place] [address]Dr. Yilan Rocha Lauren Krusei Not detected Normal NOT DETECTED [facility] Comment on above: Performed By: #### B CID2 ####[facility] Ytwpxvwgxx[address] [place] [address]Dr. Yilan Rocha Lauren Parapsilosis Not detected Normal NOT DETECTED [facility] Comment on above: Performed By: #### B CID2 ####[facility] Yosygbehuw413[address] [place], [place] [address]Dr. Yilan Rocha Lauren Tropicalis Not detected Normal NOT DETECTED [facility] Comment on above: Performed By: #### B CID2 ####[facility] Vrqpqhcjtm697[address] [place], [place] [address]Dr. Ricardo Rocha CTX-M Resistant Gene Not Applicable Normal NOT DETECTE D [facility] Comment on above: Performed By: #### B CID2 ####[facility] Uosrlrvpdd3344[address] [place], [place] [address]Dr. Ricardo Rocha E. Cloacae complex Not detected Normal NOT DETECTED [facility] Comment on above: Performed By: #### B CID2 ####[facility] Gxfmudkyao208[address] [place], [place] [address]Dr. Ricardo Rocha E. faecalis Not detected Normal NOT DETECTED [facility] Comment on above: Performed By: #### B CID2 ####[facility] Zfteoufoju1237[address] [place], [place] [address]Dr. Ricardo Rocha E. faecium Not detected Normal NOT DETECTED [facility] Comment on above: Performed By: #### B CID2 ####[facility] Fozgdoxlwl[address] [place], [place] [address]Dr. Ricardo Rocha Enterobacteriaceae Not detected Normal NOT DETECTED [facility] Comment on above: Performed By: #### B CID2 ####[facility] Nsssqohzda0314[address] [place], [place] [address]Dr. Ricardo Rocha Escherichia coli Not detected Normal NOT DETECTED [facility] Comment on above: Performed By: #### B CID2 ####[facility] Cltqfcerci000[address] [place], [place] [address]Dr. Ricardo Rocha H. influenzae Not detected Normal NOT DETECTED [facility] Comment on above: Performed By: #### B CID2 ####[facility] Wrbzvjafoy367[address] [place], [place] [address]Dr. Ricardo Rocha IMP Resistant Gene Not Applicable Normal NOT DETECTED [facility] Comment on above: Performed By: #### B CID2 ####[facility] Koofobgbqx0932[address] [place], [place] [address]Dr. Ricardo Rocha K. oxytoca Not detected Normal NOT DETECTED [facility] Comment on above: Performed By: #### B CID2 ####[facility] Vvpqjyodpx7855[address] [place], [place] [address]Dr. Ricardo Rocha K. pneumoniae Not detected Normal NOT DETECTED [facility] Comment on above: Performed By: #### B CID2 ####[facility] Zknajvlyug0225[address] [place], [place] [address]Dr. Ricardo Rocha Klebsiella aerogenes Not detected Normal NOT DETECTED [facility] Comment on above: Performed By: #### B CID2 ####[facility] Uydwkdfuda326[address] [place], [place] [address]Dr. Ricardo Rocha KPC Resistant Gene Not Applicable Normal NOT DETECTED [facility] Comment on above: Performed By: #### B CID2 ####[facility] Cetwzbnotd993[address] [place], [place] [address]Dr. Ricardo Rocha List. monocytogenes Not detected Normal NOT DETECTED [facility] Comment on above: Performed By: #### B CID2 ####[facility] Xqyjikmhbj[address] [place], [place] [address]Dr. Ricardo Rocha Mcr-1 Resistant Gene Not Applicable Normal NOT DETECTE D [facility] Comment on above: Performed By: #### B CID2 ####[facility] Tqmgwrszid4544[address] [place], [place] [address]Dr. Ricardo Rocha mecA/C Not Applicable Normal NOT DETECTED [facility] Comment on above: Performed By: #### B CID2 ####[facility] Hrzugjbzvk7386[address] [place], [place] [address]Dr. Ricardo Rocha mecA/C MREJ Detected Abnormal NOT DETECTED [facility] Comment on above: Performed By: #### B CID2 ####[facility] Rkqeqgnwne1022[address] [place], [place] [address]Dr. Ricardo Rocha N. meningitidis Not detected Normal NOT DETECTED [facility] Comment on above: Performed By: #### B CID2 ####[facility] Edvqdlewlw604[address] [place], [place] [address]Dr. Ricardo Rocha NDM Resistant Gene Not Applicable Normal NOT DETECTED [facility] Comment on above: Performed By: #### B CID2 ####[facility] Pragvbljer1946[address] [place], [place] [address]Dr. Ricardo Rocha Oxa-48-like Not Applicable Normal NOT DETECTED [facility] Comment on above: Performed By: #### B CID2 ####[facility] Zzjndpjfgo9595[address] [place], [place] [address]Dr. Ricardo Rocha Proteus Not detected Normal NOT DETECTED [facility] Comment on above: Performed By: #### B CID2 ####[facility] Uvaxibeusa4135[address] [place], [place] [address]Dr. Ricardo Rocha Pseud. aeruginosa Not detected Normal NOT DETECTED [facility] Comment on above: Performed By: #### B CID2 ####[facility] Afbgewcfvv1794[address] [place], [place] [address]Dr. Ricardo Rocha S. maltophilia Not detected Normal NOT DETECTED [facility] Comment on above: Performed By: #### B CID2 ####[facility] Xprwlvaqci9[address] [place], [place] [address]Dr. Ricardo Rocha Salmonella Not detected Normal NOT DETECTED [facility] Comment on above: Performed By: #### B CID2 ####[facility] Hcqucoawpw6258[address] [place], [place] [address]Dr. Ricadro Rocha Seratia marcescens Not detected Normal NOT DETECTED [facility] Comment on above: Performed By: #### B CID2 ####[facility] Fpmzgtiptn6497[address] [place], [place] [address]Dr. Ricardo Rocha Site: LEFT AC IV START Normal [facility] Comment on above: Performed By: #### B CID2 ####[facility] Lpupfjlpjy3904[address] [place], [place] [address]Dr. Ricardo Rocha Staph. aureus Detected Critically abnormal NOT DETECTED [facility] Comment on above: Performed By: #### B CID2 ####[facility] Uobqwkefqh0677[address] [place], [place] [address]Dr. Ricardo Rocha Staph. epidermidis Not detected Normal NOT DETECTED [facility] Comment on above: Performed By: #### B CID2 ####[facility] Lrdzpvczux2510[address] [place], [place] [address]Dr. Ricardo Rocha Staph. lugdunensis Not detected Normal NOT DETECTED [facility] Comment on above: Performed By: #### B CID2 ####[facility] Mftrvjfxxw7607[address] [place], [place] [address]Dr. Ricardo Rocha Staphylococcus Detected Critically abnormal NOT DETECTED [facility] Comment on above: Performed By: #### B CID2 ####[facility] Rxjejbliwq9859[address] [place], [place] [address]Dr. Ricardo Rocha Strep. agalactiae Not detected Normal NOT DETECTED [facility] Comment on above: Performed By: #### B CID2 ####[facility] Tgmzalokqa016[address] [place], [place] [address]Dr. Ricardo Rocha Strep. pneumoniae Not detected Normal NOT DETECTED [facility] Comment on above: Performed By: #### B CID2 ####[facility] Lqlibekbtr763[address] [place], [place] [address]Dr. Ricardo Rocha Strep. pyogenes Not detected Normal NOT DETECTED [facility] Comment on above: Performed By: #### B CID2 ####[facility] Rwxqyrhfvi4336[address] [place], [place] [address]Dr. Ricardo Rocha Streptococcus Not detected Normal NOT DETECTED [facility] Comment on above: Performed By: #### B CID2 ####[facility] Tncggulmvc7888[address] [place], [place] [address]Dr. Ricardo Aj Layne/B Resist. Gene Not Applicable Normal NOT DETECTED [facility] Comment on above: Performed By: #### B CID2 ####[facility] Vbekbhpzzh660[address] [place], [place] [address]Dr. Ricardo Rocha VIM Resistant Gene Not Applicable Normal NOT DETECTED [facility] Comment on above: Performed By: #### B CID2 ####[facility] Jtdpidbdgm8809[address] [place], [place] [address]Dr. Ricardo Rocha BLOOD GASES BTYon 06-10-2022 02 MODE ROOM AIR Normal [facility] Comment on above: Performed By: #### A BG ####[facility] Oeiaojrecu[address] [place], [place] [address]Dr. Ricardo Rocha ALLENS TEST Positive Normal [facility] Comment on above: Performed By: #### A BG ####[facility] Jbknzftnxc[address] [place] [address]Dr. Ricardo Rocha Base excess Calc (Bld) [Moles/Vol] -4.5000 mmol/L Critically low -2.0-2.0 [facility] Comment on above: Performed By: #### A BG ####[facility] Icqcjozypy18[address] [place] [address]Dr. Ricardo Rocha BIPAP PRESSURE Normal [facility] Comment on above: Performed By: #### A BG ####[facility] Bvzaqqgygk3477[address] [place], [place] [address]Dr. Ricardo Rocha CPAP Normal [facility] Comment on above: Performed By: #### A BG ####[facility] Fsorlgoccy4612[address] [place], [place] [address]Dr. Ricardo Rocha FIO2 Normal [facility] Comment on above: Performed By: #### A BG ####[facility] Vncvdkpkiv960[address] [place], [place] [address]Dr. Ricardo Rocha HCO3 (Bld) [Moles/Vol] 21.4 mmol/L Critically low 22.0-26.0 [facility] Comment on above: Performed By: #### A BG ####[facility] Ljcwcwuykz9317[address] [place], [place] [address]Dr. Ricardo Rocha LPM Normal [facility] Comment on above: Performed By: #### A BG ####[facility] Jaiwlgfjuy095[address] [place], [place] [address]Dr. Ricardo Rocha MINUTE VOLUME Normal [facility] Comment on above: Performed By: #### A BG ####[facility] Qteccfcttg6397[address] [place], [place] [address]Dr. Ricardo Rocha Oxygen (Bld) [Partial pressure] 66.4 mm[Hg] Critically low 80.0-100.0 [facility] Comment on above: Performed By: #### A BG ####[facility] Ehsmsopvtj14[address] [place], [place] [address]Dr. Ricardo Rocha Oxygen saturation in Blood 94.6 % Critically low 95.0-100.0 [facility] Comment on above: Performed By: #### A BG ####[facility] Ayknynypay40[address] [place] [address]Dr. Ricardo Rocha PCO2 29.4 mmHg Critically low 35.0-45.0 [facility] Comment on above: Performed By: #### A BG ####[facility] Giyvshzakf8726 [place] [address]Dr. Ricardo Rocha PEEP [facility] Comment on above: Performed By: #### A BG ####[facility] Wswuseywew4558 [place] [address]Dr. Ricardo Rocha pH (Bld) 7.436 [pH] Normal 7.350-7.450 [facility] Comment on above: Performed By: #### A BG ####[facility] Lcbzvanhvf85[address] [place], [place] [address]Dr. Ricardo Rocha PIP [facility] Comment on above: Performed By: #### A BG ####[facility] Aoglkjhwwf2759[address] [place], [place] [address]Dr. Ricardo Rocha PS [facility] Comment on above: Performed By: #### A BG ####[facility] Zkbazcuvqy[address] [place], [place] [address]Dr. Ricardo Rocha PUNCTURE SITE LR [place] [facility] Comment on above: Performed By: #### A BG ####[facility] Lkqyznjift9845[address] [place], [place] [address]Dr. Ricardo Rocha RATE [facility] Comment on above: Performed By: #### A BG ####[facility] Wddiqhjagz8798 [place] [address]Dr. Ricardo Rocha VENT MODE [facility] Comment on above: Performed By: #### A BG ####[facility] Izokdhpwoi10[address] [place], [place] [address]Dr. Ricardo Rocha VT [facility] Comment on above: Performed By: #### A BG ####[facility] Yvyqcgdjhz7237[address] [place], [place] [address]Dr. Ricardo Rocha CBC W MANUAL DIFFon 06-10-20 22 ATYPICAL LYMPH # Normal [facility] Comment on above: Performed By: #### C BCRED ####[facility] Ahluctjfem22[address] [place] [id number]. Ricardo Rocha ATYPICAL LYMPH % Normal [facility] Comment on above: Performed By: #### C BCMAN ####[facility] Gicdclgfxj4777 [place] [address]Dr. Ricardo Rocha BAND # 1.3 103/ul Critically high 0.0-0.3 [facility] Comment on above: Performed By: #### C BCMAN ####[facility] Humsaqhejb9525 [place] [address]Dr. Nanolan Rocha BAND % 12 % Critically high 0-5 [facility] Comment on above: Performed By: #### C DWAINE ####[facility] Zdhyhlzkxf2976 [place] [address]Dr. Ricardo Rocha BASOM # 0.00 103/ul Normal 0.00-0.10 [facility] Comment on above: Performed By: #### C DWAINE ####[facility] Baizldipie1876 [place] [address]Dr. Ricardo Rocha BASOM % 0.0 % Critically low 0.2-2.0 [facility] Comment on above: Performed By: #### C DWAINE ####[facility] Wllngnihpg2253 [place] [address]Dr. Ricardo Rocha BLAST # Normal [facility] Comment on above: Performed By: #### C DWAINE ####[facility] Vetoklprqi[address] [place] [address]Dr. Ricardo Rocha BLAST % Normal [facility] Comment on above: Performed By: #### C DWAINE ####[facility] Nlpdapdlln9880 [place] [address]Dr. Ricardo Rocha CORRECTED WBC Normal 4.0-11.0 [facility] Comment on above: Performed By: #### C BCRED ####[facility] Hbuczazimm5883 [place] [phone]. Ricardo Rocha EOS # 0.00 103/ul Normal 0.00-0.70 [facility] Comment on above: Performed By: #### C BCRED ####[facility] Oktpvfqtii7376 [place] [address]Dr. Ricardo Rocha EOS% 0.0 % Critically low 0.9-7.0 [facility] Comment on above: Performed By: #### C DWAINE ####[facility] Khcgrqauia1477 [place] [address]Dr. Ricardo Rocha HCT 35.5 % Critically low 36.0-48.0 [facility] Comment on above: Performed By: #### C DWAINE ####[facility] Euyloxjqei2247 [place] [address]Dr. Ricardo Rocha HGB 11.4 g/dl Critically low 12.0-16.0 [facility] Comment on above: Performed By: #### C DWAINE ####[facility] Kftgaopasy2050 [place] [address]Dr. Ricardo Rocah HYPERSEG NEUT 3+ Normal [facility] Comment on above: Performed By: #### C DWAINE ####[facility] Pthvampzal4638 [place] [address]Dr. Ricardo Rocha LYMPHM # 0.21 103/ul Critically low 1.20-3.80 [facility] Comment on above: Performed By: #### C DWAINE ####[facility] Mddtnsaruv2602 [place] [address]Dr. Ricardo Rocha LYMPHM% 2.0 % Critically low 20.5-60.0 [facility] Comment on above: Performed By: #### C DWAINE ####[facility] Rmmypdzhxs2269 [place] [address]Dr. Ricardo Rocha MCH 25.3 pg Critically low 26.7-34.0 [facility] Comment on above: Performed By: #### C DWAINE ####[facility] Ydmdaszeqn8227 [place] [address]Dr. Ricardo Rocha MCHC 32.1 g/dl Normal 29.9-35.2 [facility] Comment on above: Performed By: #### C DWAINE ####[facility] Onrlszmfwa3941 [place] [address]Dr. Ricardo Rocha MCV 78.9 fL Critically low 81.0-99.0 [facility] Comment on above: Performed By: #### C DWAINE ####[facility] Brtayulohq7675 [place] [address]Dr. Ricardo Rocha METAMYELOCYTE # Normal [facility] Comment on above: Performed By: #### C DWAINE ####[facility] Tijuxngkxd3611 [place] [address]Dr. Ricardo Rocha METAMYELOCYTE % Normal [facility] Comment on above: Performed By: #### C DWAINE ####[facility] Ahywpouhrz24[address] [place], [place] [address]Dr. Ricardo Rocha MONOM# 0.32 103/ul Normal 0.30-0.80 [facility] Comment on above: Performed By: #### C DWAINE ####[facility] Wniqbnjaot02[address] [place], [place] [address]Dr. Ricardo Rocha MONOM% 3.0 % Normal 1.7-12.0 [facility] Comment on above: Performed By: #### C DWAINE ####[facility] Mpodncdvks4767[address] [place], [place] [address]Dr. Ricardo Rocha MPV 10.9 fL Normal 9.5-13.5 [facility] Comment on above: Performed By: #### C DWAINE ####[facility] Vdscrsvwxi[address] [place], [place] [address]Dr. Ricardo Rocha MYELOCYTE # Normal [facility] Comment on above: Performed By: #### C DWAINE ####[facility] Hvkhzizzvz[address] [place], [place] [address]Dr. Ricardo Rocha MYELOCYTE % Normal [facility] Comment on above: Performed By: #### C DWAINE ####[facility] Dgrloilekn[address] [place], [place] [address]Dr. Ricardo Rocha NRBC Normal [facility] Comment on above: Performed By: #### C DWAINE ####[facility] Sxqatmybdn1662 [place], [place] [address]Dz. Ricardo Rocha PLT 180 103/ul Normal 150-450 [facility] Comment on above: Performed By: #### C DWAINE ####[facility] Ziiihspwak3123 [place] [phone]. Ricardo Rocha RBC 4.50 106/ul Normal 4.20-5.40 [facility] Comment on above: Performed By: #### C DWAINE ####[facility] Uhqwuhaefy7982 [place] [phone]. Ricardo Rocha RDW 12.8 % Normal 11.0-15.0 [facility] Comment on above: Performed By: #### C DWAINE ####[facility] [address]mbn[address] [place], [place] [address]Dr. Ricardo Rocha SEG # 8.71 103/ul Critically high 1.40-6.50 [facility] Comment on above: Performed By: #### Esteban ISIDRO ####[facility] Gglrgkwmpu[address] [place], [place] [address]Dr. Ricardo Rocha SEG % 83.0 % Critically high 43.0-75.0 [facility] Comment on above: Performed By: #### Esteban ISIDRO ####[facility] Nyoeffpcoe[address] [address] [place], [place] [id number]. Ricardo Rocha TOXIC GRANULATION 2+ Normal [facility] Comment on above: Performed By: #### Esteban ISIDRO ####[facility] [address] [place] [id number]. Ricardo Rocha WBC 10.5 103/ul Normal 4.0-11.0 [facility] Comment on above: Performed By: #### Esteban ISIDRO ####[facility] [address] [place], [place] [id number]. Ricardo Rocha CULTURE BLOODon 06-10-2022 Microscopic examination of blood, culture Culture Observations: Positive blood culture. Pediatric bottle. Culture Observations: Please refer to for susceptibility testing. Isolate 1 Staphylococcus aureus Growth of Normal [facility] Comment on above: Performed By: #### B LDCX2 ####[facility] [address] [place] [address]Dr. Ricardo Rocha LACTATE/LACTIC ACIDon 2021 Lactate [Moles/Vol] 1.9 mmol/L Normal 0.4-1.9 [facility] Comment on above: Performed By: #### L ACT ####[facility] [address] [place] [address]Dr. Ricardo Rocha LIPASEon 06-10-2022 Lipase [Catalytic activity/Vol] 164.0 U/L Normal 73.0-393.0 [facility] Comment on above: Performed By: #### H STROPN, LIPA, CMP, TSH ####[facility] [address] [place], [place] [address]Dr. Ricardo Rocha POINT OF CARE GLUCOSEon 05-22 Glucose [Mass/Vol] 583 mg/dL Critically high 74-106 [facility] Comment on above: Result Comment: Resu lt Not Confirmed Performed By: #### P OCGLUC ####[facility] [address] [place], [place] [address]Dr. Ricardo Rocha PROF 14(COMP METB)on 022 Albumin [Mass/Vol] 3.0 g/dL Critically low 3.4-5.0 [facility] Comment on above: Performed By: #### H STROPN, LIPA, CMP, TSH ####[facility] [address] [place] [address]Dr. Ricardo Rocha Albumin/Globulin [Mass ratio] 0.5 {ratio} Normal [facility] Comment on above: Performed By: #### H STROPN, LIPA, CMP, TSH ####[facility] [address] [place] [address]Dr. Ricardo Rocha ALP [Catalytic activity/Vol] 116 U/L Normal 46-116 [facility] Comment on above: Performed By: #### H STROPN, LIPA, CMP, TSH ####[facility] [address] [place] [address]Dr. Ricardo Rocha ALT [Catalytic activity/Vol] 15 U/L Normal 14-59 [facility] Comment on above: Performed By: #### H STROPN, LIPA, CMP, TSH ####[facility] [address] [place] [address]Dr. Ricardo Rocha Anion gap [Moles/Vol] 15.7 mmol/L Normal [facility] Comment on above: Performed By: #### H STROPN, LIPA, CMP, TSH ####[facility] [address] [place] [address]Dr. Ricardo Rocha AST [Catalytic activity/Vol] 16 U/L Normal 15-37 [facility] Comment on above: Performed By: #### H STROPN, LIPA, CMP, TSH ####[facility] [address] [place] [address]Dr. Ricardo Rocha Bilirubin [Mass/Vol] 0.5 mg/dL Normal 0.2-1.0 [facility] Comment on above: Performed By: #### H STROPN, LIPA, CMP, TSH ####[facility] [address] [place] [address]Dr. Ricardo Rocha Calcium [Mass/Vol] 9.4 mg/dL Normal 8.5-10.1 [facility] Comment on above: Performed By: #### H STROPN, LIPA, CMP, TSH ####[facility] [address] [place] [address]Dr. Ricardo Rocha Chloride [Moles/Vol] 95 mmol/L Critically low 98-107 [facility] Comment on above: Performed By: #### H STROPN, LIPA, CMP, TSH ####[facility] [address] [place] [address]Dr. Ricardo Rocha CO2 [Moles/Vol] 22.1 mmol/L Normal 21.0-32.0 [facility] Comment on above: Performed By: #### H STROPN, LIPA, CMP, TSH ####[facility] [address] [place] [address]Dr. Ricardo Rocha Creatinine [Mass/Vol] 2.23 mg/dL Critically high 0.55-1.02 [facility] Comment on above: Performed By: #### H STROPN, LIPA, CMP, TSH ####[facility] [address] [place] [address]Dr. Ricardo Rocha EGFR-AF WALLISIAN 27 mL/min/1.73m2 Critically low >=60 [facility] Comment on above: Performed By: #### H STROPN, LIPA, CMP, TSH ####[facility] [address] [place] [address]Dr. Ricardo Rocha EGFR-NON AF WALLISIAN 22 mL/min/1.73m2 Critically low >=60 [facility] Comment on above: Performed By: #### H STROPN, LIPA, CMP, TSH ####[facility] [address] [place] [address]Dr. Ricardo Rocha Globulin (S) [Mass/Vol] 6.5 g/dL Normal [facility] Comment on above: Performed By: #### H STROPN, LIPA, CMP, TSH ####[facility] [address] [place] [address]Dr. Ricardo Rocha Glucose [Mass/Vol] 593 mg/dL Critically high 74-106 [facility] Comment on above: Performed By: #### H STROPN, LIPA, CMP, TSH ####[facility] [address] [place] [address]Dr. Ricardo Rocha Potassium [Moles/Vol] 3.8 mmol/L Normal 3.5-5.1 [facility] Comment on above: Performed By: #### H STROPN, LIPA, CMP, TSH ####[facility] [address] [place] [address]Dr. Ricardo Rocha Protein [Mass/Vol] 9.5 g/dL Critically high 6.4-8.2 [facility] Comment on above: Performed By: #### H STROPN, LIPA, CMP, TSH ####[facility] [address] [place] [address]Dr. Ricardo Rocha Sodium [Moles/Vol] 129 mmol/L Critically low 136-145 [facility] Comment on above: Performed By: #### H STROPN, LIPA, CMP, TSH ####[facility] [address] [place] [id number]. Ricardo Rocha Urea nitrogen [Mass/Vol] 40.0 mg/dL Critically high 7.0-18.0 [facility] Comment on above: Performed By: #### H STROPN, LIPA, CMP, TSH ####[facility] [address] [place], [place] [address]Dr. Ricardo Rocha Urea nitrogen/Creatinine [Mass ratio] 17.9 mg/mg Normal [facility] Comment on above: Performed By: #### H STROPN, LIPA, CMP, TSH ####[facility] [address] [place], [place] [address]Dr. Ricardo Rocha PROTIMEon 06-10-2022 INR Coag (PPP) [Relative time] 1.00 {INR} Normal [facility] Comment on above: Performed By: #### P TT, PT ####[facility] [address] [place], [place] [address]Dr. Ricardo Rocha INR GUIDELINES SEE BELOW Normal [facility] Comment on above: Result Comment: AMBROSIO RED INR: 2.0 - 3.0 CONDITIONS NOT LISTED BELOW 2.5 - 3.5 FOR PROSTHETIC HEART VALVE REPLACEMENT 2.5 - 3.5 RECURRENT THROMBOSIS Performed By: #### P TT, PT ####[facility] [address] [place], [place] [address]Dr. Ricardo Rocha PT Coag (PPP) [Time] 10.8 s Normal 9.0-11.6 [facility] Comment on above: Performed By: #### P TT, PT ####[facility] Pdiv[address] [place], [place] [address]Dr. Ricardo Rocha PTTon 06-10-2022 aPTT Coag (Bld) [Time] 31.7 s Normal 22.3-36.2 [facility] Comment on above: Performed By: #### P TT, PT ####[facility] [address]we[address] [place], [place] [address]Dr. Ricardo Rocha TROPONIN, HIGH SENSITIVITYon 06-10-2022 HSTROP 30.9 pg/mL Normal 4.0-51.3 [facility] Comment on above: Result Comment: CUT- OFF POINTS HAVE BEEN ESTABLISHED BASED ON THE FOURTH UNIVERSAL DEFINITIONS OF MYOCARDIALINFARCTION. THE UPPER REFERENCE LIMIT (URL) OF TROPONIN, DEFINED THE 99TH PERCENTILE OFcTnI DISTRIBUTION IN A REFERENCE POPULATION, HAS BEEN CONFIRMED THE DECISION THRESHOLDFOR OH DIAGNOSIS. Performed By: #### H STROPN, LIPA, CMP, TSH ####[facility] [address] [place] [address]Dr. Ricardo Rocha TSHon 06-10-2022 TSH 0.147 uIU/mL Critically low 0.358-3.740 [facility] Comment on above: Performed By: #### H STROPN, LIPA, CMP, TSH ####[facility] [address] [place], [place] [address]Dr. Ricardo Rocha XR FOOT GURJIT MIN 3 VIEWSon XR FOOT GURJIT MIN 3 VIEWS Normal [facility] XR HAND RT MIN 3Von 06-02-20 XR HAND RT MIN 3V Normal [facility] CULTURE WOUNDon 05-15-2022 CULTURE WOUND Normal [facility] Comment on above: Performed By: #### W OUNDCX ####[facility] [address] [place], [place] [address]Dr. Ricardo Rocha CBC AUTO DIFFon 2022 BASO # 0.0 103/ul Normal 0.0-0.1 [facility] Comment on above: Performed By: #### C BC ####[facility] [address] [place], [place] [address]Dr. Ricardo Rocha Basophils/100 WBC (Bld) 0.7 % Normal 0.2-2.0 [facility] Comment on above: Performed By: #### C BC ####[facility] [address] [place], [place] [address]Dr. Ricardo Rocha EO # 0.1 103/ul Normal 0.0-0.7 [facility] Comment on above: Performed By: #### C BC ####[facility] [address] [place], [place] [address]Dr. Ricardo Rocha Eosinophils/100 WBC (Bld) 2.1 % Normal 0.9-7.0 [facility] Comment on above: Performed By: #### C BC ####[facility] [address]af[address] [place], [place] [address]Dr. Ricardo Rocha Erythrocyte distribution width (RBC) [Ratio] 13.2 % Normal 11.0-15.0 [facility] Comment on above: Performed By: #### C BC ####[facility] K[address] [place], [place] [address]Dr. Ricardo Rocha Hematocrit (Bld) [Volume fraction] 36.6 % Normal 36.0-48.0 [facility] Comment on above: Performed By: #### C BC ####[facility] Tpu[address]oboc[address] [place], [place] [address]Dr. Ricardo Rocha Hemoglobin (Bld) [Mass/Vol] 11.9 g/dL Critically low 12.0-16.0 [facility] Comment on above: Performed By: #### C BC ####[facility] [address]cq[address] [place], [place] [address]Dr. Ricardo Rocha IG # 0.03 10e3/ul Normal 0.00-0.03 [facility] Comment on above: Performed By: #### C BC ####[facility] [address]ixex[address] [place], [place] [address]Dr. Ricardo Rocha IG % 0.5 % Normal 0.0-0.5 [facility] Comment on above: Performed By: #### C BC ####[facility] [address]wa[address]wzf[address] [place], [place] [address]Dr. Ricardo Rocha LYMPH # 2.1 103/ul Normal 1.2-3.8 [facility] Comment on above: Performed By: #### C BC ####[facility] [address] [place], [place] [address]Dr. Ricardo Rocha Lymphocytes/100 WBC (Bld) 33.8 % Normal 20.5-60.0 [facility] Comment on above: Performed By: #### C BC ####[facility] Qkbd[address]ksm[address] [place], [place] [address]Dr. Ricardo Rocha MANUAL DIFF REQ NO Normal [facility] Comment on above: Performed By: #### C BC ####[facility] [address] [place] [address]Dr. Ricadro Aj MCH (RBC) [Entitic mass] 25.7 pg Critically low 26.7-34.0 [facility] Comment on above: Performed By: #### C BC ####[facility] Ig[address] [place], [place] [address]Dr. Ricardo Rocha MCHC (RBC) [Mass/Vol] 32.5 g/dL Normal 29.9-35.2 [facility] Comment on above: Performed By: #### C BC ####[facility] X[address]xcdlg[address] [place], [place] [address]DrIrina Rocha MCV (RBC) [Entitic vol] 79.0 fL Critically low 81.0-99.0 [facility] Comment on above: Performed By: #### C BC ####[facility] [address] [place], [place] [address]Dr. Ricardo Rocha MONO # 0.4 103/ul Normal 0.3-0.8 [facility] Comment on above: Performed By: #### C BC ####[facility] [address] [place], [place] [address]DrIrina Rocha Monocytes/100 WBC (Bld) 6.2 % Normal 1.7-12.0 [facility] Comment on above: Performed By: #### C BC ####[facility] Cxvegzcauj[address] [place], [place] [address]DrIrina Rocha NEUT # 3.5 103/ul Normal 1.4-6.5 [facility] Comment on above: Performed By: #### C BC ####[facility] W[address] [place], [place] [address]DrIrina Rocha Neutrophils/100 WBC (Bld) 56.7 % Normal 43.0-75.0 [facility] Comment on above: Performed By: #### C BC ####[facility] Htmlhouyje[address] [place], [place] [address]Dr. Ricardo Rocha Platelet mean volume (Bld) [Entitic vol] 10.9 fL Normal 9.5-13.5 [facility] Comment on above: Performed By: #### C BC ####[facility] [address] [place] [address]Dr. Ricarod Rocha PLT 241 103/ul Normal 150-450 [facility] Comment on above: Performed By: #### C BC ####[facility] [address] [place] [address]Dr. Ricardo Rocha RBC 4.63 106/ul Normal 4.20-5.40 [facility] Comment on above: Performed By: #### C BC ####[facility] [address] [place], [place] [address]Dr. Ricardo Rocha WBC 6.1 103/ul Normal 4.0-11.0 [facility] Comment on above: Performed By: #### C BC ####[facility] [address]so[address] [place], [place] [address]Dr. Ricardo Rocha PROF CHEM 8 (BAS METB)on Anion gap [Moles/Vol] 11.8 mmol/L Normal [facility] Comment on above: Performed By: #### B MP ####[facility] [address] [place], [place] [address]Dr. Ricardo Rocha Calcium [Mass/Vol] 9.2 mg/dL Normal 8.5-10.1 [facility] Comment on above: Performed By: #### B MP ####[facility] [address]in[address]jf[address] [place], [place] [address]Dr. Ricardo Rocha Chloride [Moles/Vol] 99 mmol/L Normal 98-107 [facility] Comment on above: Performed By: #### B MP ####[facility] [address]ixsr[address] [place], [place] [address]DrIrina Rocha CO2 [Moles/Vol] 24.7 mmol/L Normal 21.0-32.0 [facility] Comment on above: Performed By: #### B MP ####[facility] X[address] [place], [place] [address]Dr. Nanomarcial Rocha Creatinine [Mass/Vol] 1.48 mg/dL Critically high 0.55-1.02 [facility] Comment on above: Performed By: #### B MP ####[facility] [address] [place] [address]Dr. Nanomarcial Rocha EGFR-AF WALLISIAN 43 mL/min/1.73m2 Critically low >=60 [facility] Comment on above: Performed By: #### B MP ####[facility] [address]wx[address] [place], [place] [address]Dr. Nanomarcial Aj EGFR-NON AF WALLISIAN 36 mL/min/1.73m2 Critically low >=60 [facility] Comment on above: Performed By: #### B MP ####[facility] Y[address] [place], [place] [address]Dr. Ricardo Rocha Glucose [Mass/Vol] 431 mg/dL Critically high 74-106 [facility] Comment on above: Performed By: #### B MP ####[facility] [address]yl[address] [place], [place] [address]Dr. Ricardo Rocha Potassium [Moles/Vol] 4.5 mmol/L Normal 3.5-5.1 [facility] Comment on above: Performed By: #### B MP ####[facility] [address]xjxa[address] [place], [place] [address]Dr. Ricardo Rocha Sodium [Moles/Vol] 131 mmol/L Critically low 136-145 [facility] Comment on above: Performed By: #### B MP ####[facility] R[address]wr[address] [place], [place] [address]Dr. Ricardo Rocha Urea nitrogen [Mass/Vol] 23.0 mg/dL Critically high 7.0-18.0 [facility] Comment on above: Performed By: #### B MP ####[facility] [address] [place], [place] [address]Dr. Ricardo Rocha Urea nitrogen/Creatinine [Mass ratio] 15.5 mg/mg Normal [facility] Comment on above: Performed By: #### B MP ####[facility] [address] [place], [place] [address]DrIrina Rocha XR TOES GURJIT MIN 2 Von 2021 XR TOES GURJIT MIN 2 V Normal [facility] HEALTH 01-21-2021 ALLIED HEALTH HNO ID: [id number] Author: RT Parveen(R) Service: ? 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 42 Normal [facility] ospital eGFR-All [...] GFR. Glucose [Mass/Vol] 141 mg/dL High 74-99 [facility] Comment on above: Result Comment: The [place] Diabetes Association (ADA) provides guidance for cutoff [...] Standards of Medical Care in Diabetes 2016, [place] [employer]. Diabetes Care. 2016.39(Suppl 1). Potassium [Moles/Vol] 4.7 mmol/L Normal 3.7-5.1 [facility] Sodium [Moles/Vol] 131 mmol/L Low 136-144 [facility] Urea nitrogen [Mass/Vol] 42 mg/dL High 7-21 [facility] CBCon 01-21-2021 Absolute nRBC <0.01 [facility]0.01 [facility] width (RBC) [Ratio] [...] (Bld) [Entitic vol] 11.1 fL Normal 9.0-12.7 [facility] Platelets (Bld) [#/Vol] 358 10*3/uL Normal 150-400 [facility] RBC (Bld) [#/Vol] 3.89 10*6/uL Low 3.90-5.20 [facility] WBC (Bld) [#/Vol] 9.64 10*3/uL Normal 3.70-11.00 [facility] CNDSon 01-21-2021 CNDS HNO ID: [id number] Author: Inna Hansen DO Service: Hospital Medicine [...] Team: Attending Provider: Inna Hansen DO Physician Building And Construction Manager: Garrett Simon PA-C Consulting: Taurus Ballard [...] PCP: referred to a new PCP in [place]. Future Appointments Date Time Provider Department Center 01/29/2021 11:40 AM Taurus Ballard MD [facility] The patient's risk for 30-day readmission is determined using the following contributing factors: Pt variables contributing to increased readmission risk: 42 Most Recent (more content not included)... Normal [facility] MRI KIDNEY WO/W IVCONon 06-0 MRI KIDNEY WO/W IVCON * * *Final Report* * * DATE OF EXAM: Jan 20 2021 10:35PM [facility] 0721 - MRI KIDNEY WO/W IVCON / PROCEDURE REASON: Renal cyst * * * * Physician Interpretation * * * * EXAMINATION: MRI ABDOMEN WITHOUT AND WITH IV CONTRAST CLINICAL HISTORY: Renal mass characterization. TECHNIQUE: A renal MRI was performed on a MR system utilizing the torso phased-array coil. Pulse sequences included: axial precontrast T1 weighted in- and [id number]-oa-[id number], axial and coronal HASTE, axial DWI with [...] be communicated with the ordering provider via [employer] staff message or phone message by Imaging Support Services within 2 business days of report finalization. Algorithms for management of incidental imaging findings can be found on the [facility] Intranet Sharepoint site at: [email or web address] [email or web address]%2 0Findi [email or web address]/Form s/[email or web address] Report Manager: GUILLE Transcribe Date/Time: Jan 21 2021 8:17A [...] Center Calcium [Mass/Vol] 8.7 mg/dL Normal 8.5-10.2 [facility] Chloride [Moles/Vol] 97 mmol/L Normal 97-105 [facility] CO2 [Moles/Vol] 24 mmol/L Normal 22-30 [facility] Creatinine [Mass/Vol] 1.46 mg/dL High 0.58-0.96 [facility] eGFR- Amer. 44 Normal [facility] eGFR-All Other Races 36 . [...] GFR. Glucose [Mass/Vol] 149 mg/dL High 74-99 [facility] Comment on above: Result Comment: The [place] Diabetes [employer] (ADA) provides guidance for cutoff [...] Standards of Medical Care in Diabetes 2016, [place] [employer]. Diabetes Care. 2016.39(Suppl 1). Potassium [Moles/Vol] 3.9 mmol/L Normal 3.7-5.1 [facility] Sodium [Moles/Vol] 132 mmol/L Low 136-144 [facility] Urea nitrogen [Mass/Vol] 53 mg/dL High 7-21 [facility] CBCon 01-20-2021 Absolute nRBC <0.01 Normal <0.01 [facility] Erythrocyte distribution width (RBC) [Ratio] [...] (Bld) [Entitic vol] 11.1 fL Normal 9.0-12.7 [facility] Platelets (Bld) [#/Vol] 321 10*3/uL Normal 150-400 [facility] RBC (Bld) [#/Vol] 3.63 10*6/uL Low 3.90-5.20 [facility] WBC (Bld) [#/Vol] 11.05 10*3/uL High 3.70-11.00 [facility] CONSULT PROGon 01-20-2021 CONSULT PROG HNO ID: [id number] Author: Rajendra Cruz MD Service: Nephrology Author Type: Physician Type: Consult Progress Note Filed: 01/20/2021 1:44 PM Note Text: [facility] NEPHROLOGY CONSULT PROGRESS NOTE SERVICE DATE: [...] 15 Units pen (long acting) (LANTUS SOLOSTAR, BASAGLCALI TURNER) 15 Units SUBCUTANEOUS AT BEDTIME - HYDROcodone [...] DATE: January 20, 2021 1:43 PM PHONE: [phone] FOR AFTER HOUR CONCERNS BETWEEN 7PM - 7AM CONTACT ON-CALL NEPHROLOGY STAFF Normal [facility] THERAPY NT 01-20-2021 THERAPY NT HNO ID: [id number] Author: Afia Radford, PT Service: Physical Therapy Author Type: Physical Therapist Type: Therapy (PT/OT/Speech/Resp) Filed: 01/20/2021 3:32 PM Note Text: Physical Therapy Treatment SERVICE DATE: 01/20/2021 SERVICE TIME: 1330 to 1353 ROOM: [place] [address] Recommended Discharge Disposition: Home PT Recommended Discharge [...] 0 Tub/Shower Type: tub shower Laundry: basement, fvfawbzt-pc-rky Equipment Owned: Cane;Standard Walker Prior Functional Level: [...] Diagnosis: Reduced mobility-other Interventions Provided: Gait Training (54519);Therapeutic Exercise (41621) Therapeutic Exercise (88529) Treatment Minutes: 8 Pt performed in supine position: AP, QS, GS x 10 B LE, pt instructed to do every hour while awake on their own. 7 days a week, HS, hip ABD, SAQ, SLR 10-20 reps/ 2-3x/day/ 7 days/week Gait Training (86968) Treatment Minutes: 15 $ Gait Training (55739) Billed Units: 1 unit Training AND education [...] 2021 TIME: (more content not included)... Normal [facility] THERAPY NT HNO ID: [id number] Author: Heidy Wright, OT/L Service: Occupational Therapy Author Type: Occupational Therapist Type: Therapy (PT/OT/Speech/Resp) Filed: 01/20/2021 12:15 PM Note Text: Occupational Therapy Treatment SERVICE DATE: 01/20/2021 SERVICE TIME: 1155 to 1205 ROOM: [place] [address] Recommended Discharge Disposition: Home OT Recommended Discharge [...] 0 Tub/Shower Type: tub shower Laundry: basement, cwrnfcel-jz-aoo Equipment Owned: Cane;Standard Walker Prior Functional Level: [...] (generalized);General symptoms and signs-other Interventions Provided: Self Prison Management (26786) Self Prison Management (73850) Treatment Minutes: 10 $ Self Prison Management (86701) Billed Units: 1 unit Training AND education provided in: Benefits of in (more content not included)... Normal [facility] THERAPY NT HNO ID: [id number] Author: KRUNAL Navarro Service: Occupational Therapy Author Type: Occupational Therapist Type: Therapy (PT/OT/Speech/Resp) Filed: 01/20/2021 8:24 AM Note Text: OCCUPATIONAL THERAPY MISSED VISIT SERVICE DATE: 01/20/2021 SERVICE TIME: 0820 to 08 ROOM: [place] [address] Attempted Treatment. Patient not seen due to Declined. Pt states, It's too early when OT attempted to work with her. Will re-attempt as schedule permits. SIGNATURE: KRUNAL Navarro PATIENT NAME: Aislinn Wheeler DATE: January 20, 2021 TIME: 8:24 AM Normal [facility] Basic Metabolic Panlon 01-19 Anion gap [Moles/Vol] 11 mmol/L Normal 9-18 [facility] Calcium [Mass/Vol] 8.5 mg/dL Normal 8.5-10.2 [facility] Chloride [Moles/Vol] 93 mmol/L Low 97-105 [facility] CO2 [Moles/Vol] 24 mmol/L Normal 22-30 [facility] Creatinine [Mass/Vol] 1.92 mg/dL High 0.58-0.96 [facility] eGFR- Amer. 32 Normal [facility] GFR. Glucose [Mass/Vol] 268 mg/dL High 74-99 [facility] Comment on above: Result Comment: The [place] Diabetes [employer] (ADA) provides guidance for cutoff [...] Standards of Medical Care in Diabetes 2016, [place] [employer]. Diabetes Care. 2016.39(Suppl 1). Potassium [Moles/Vol] 4.2 mmol/L Normal 3.7-5.1 [facility] Sodium [Moles/Vol] 128 mmol/L Low 136-144 [facility] Urea nitrogen [Mass/Vol] 77 mg/dL High 7-21 [facility] Anion gap [Moles/Vol] 11 mmol/L Normal 9-18 [facility] Calcium [Mass/Vol] 8.3 mg/dL Low 8.5-10.2 [facility] Chloride [Moles/Vol] 88 mmol/L Low 97-105 [facility] CO2 [Moles/Vol] 23 mmol/L Normal 22-30 [facility] Creatinine [Mass/Vol] 1.93 mg/dL High 0.58-0.96 [facility] eGFR- Amer. 32 Normal [facility] [...] GFR. Glucose [Mass/Vol] 292 mg/dL High 74-99 [facility] Comment on above: Result Comment: The [place] [employer] (ADA) provides guidance for cutoff [...] Standards of Medical Care in Diabetes 2016, [employer] [employer]. Diabetes Care. 2016.39(Suppl 1). Potassium [Moles/Vol] 3.8 mmol/L Normal 3.7-5.1 [facility] Sodium [Moles/Vol] 122 mmol/L Low 136-144 [facility] Urea nitrogen [Mass/Vol] 82 mg/dL High 7-21 [facility] CBCon 01-19-2021 Absolute nRBC <0.01 [facility]0.01 [facility]th[facility] distribution width (RBC) [Ratio] [...] vol] 11.2 fL Normal 9.0-12.7 [facility] Platelets (Bld) [#/Vol] 297 10*3/uL Normal 150-400 [facility] RBC (Bld) [#/Vol] 3.66 10*6/uL Low 3.90-5.20 [facility] WBC (Bld) [#/Vol] 12.14 10*3/uL High 3.70-11.00 [facility] CONSULT PROGon 01-19-2021 CONSULT PROG HNO ID: [id number] Author: Rajendra Cruz MD Service: Nephrology Author Type: Physician Type: Consult Progress Note Filed: 01/19/2021 2:40 PM Note Text: [facility] NEPHROLOGY CONSULT PROGRESS NOTE SERVICE DATE: [...] DATE: January 19, 2021 2:27 PM PHONE: [phone] FOR AFTER HOUR CONCERNS BETWEEN 7PM - 7AM CONTACT ON-CALL NEPHROLOGY STAFF [facility] 01-19-2021 NUTRITION HNO ID: [id number] Author: Michelle Louis RD Service: Nutrition Therapy [...] history;Intake records;Patient/family self-report;Weight loss;Nausea;Vomiting Estimated kilocalorie needs: 9455-3642 Calorie Calculation Method: 30-35 kcals/kg Estimated protein [...] Question: Carbohydrate Control Answer: 3-5 CARBS/MEAL 01/18/21 0945 Anthropometrics: Height: 152.4 cm (5') Weight: 44.1 [...] January 19, 2021 TIME: 10:59 AM PAGER: [phone] I have reviewed the nutritional assessment note documented by the advisory intern and I personally participated in the miller components. I have discussed the case and nutritional management of the patient's care. Michelle Louis MS,RD,LD,[facility] THERAPY [facility] 01-19-2021 THERAPY HNO ID: [id number] Author: Afia Radford, PT Service: Physical Therapy Author Type: Physical Therapist Type: Therapy (PT/OT/Speech/Resp) Filed: 01/19/2021 2:57 PM Note Text: Physical Therapy Evaluation SERVICE DATE: 01/19/2021 SERVICE TIME: 1307 to 1331 ROOM: [place] [address] Recommended Discharge Disposition: Home PT Anticipated Discharge [...] 0 Tub/Shower Type: tub shower Laundry: basement, [id number]-qu-xal Equipment Owned: Cane;Standard Walker Prior Functional Level: [...] Diagnosis: Reduced mobility-other Interventions Provided: Evaluation;Therapeutic Exercise (10953);Gait Training (42020) $ Evaluation-Low (46361) Billed Units: 1 unit Therapeutic Exercise (90503) Treatment Minutes: 1 Patient performed in seated position: Marching, AP/HR, hip ABD, LAQ x10 B LE- instructions written on white board for pt to complete on her own. Gait Training (32548) Treatment Minutes: 8 $ Gait Training (87295) Billed Units: 1 unit Training AND education [...] present during visit: Aleksander Syed, SPT Normal [facility] Basic Metabolic Panlon 01-18 Anion gap [Moles/Vol] 13 mmol/L Normal 9-18 [facility] Calcium [Mass/Vol] 8.8 mg/dL Normal 8.5-10.2 [facility] Chloride [Moles/Vol] 88 mmol/L Low 97-105 [facility] CO2 [Moles/Vol] 22 mmol/L Normal 22-30 [facility] Creatinine [Mass/Vol] 2.21 mg/dL High 0.58-0.96 [facility] eGFR- Amer. 27 Normal [facility] [...] GFR. Glucose [Mass/Vol] 253 mg/dL High 74-99 [facility] Comment on above: Result Comment: The [place] [employer] (ADA) provides guidance for cutoff [...] Standards of Medical Care in Diabetes 2016, [employer] [employer]. Diabetes Care. 2016.39(Suppl 1). Potassium [Moles/Vol] 3.7 mmol/L Normal 3.7-5.1 [facility] Sodium [Moles/Vol] 123 mmol/L Low 136-144 [facility] Urea nitrogen [Mass/Vol] 93 mg/dL High 7-21 [facility] Anion gap [Moles/Vol] 16 mmol/L Normal 9-18 [facility] Calcium [Mass/Vol] 9.0 mg/dL Normal 8.5-10.2 [facility] Chloride [Moles/Vol] 93 mmol/L Low 97-105 [facility] CO2 [Moles/Vol] 21 mmol/L Low 22-30 [facility] Creatinine [Mass/Vol] 2.59 mg/dL High 0.58-0.96 [facility] eGFR- Amer. 23 Normal [facility] eGFR-All Other Races 19 . [...] ospital Comment on above: Result Comment: The [place] [employer] (ADA) provides guidance for cutoff [...] Standards of Medical Care in Diabetes 2016, [place] [employer]. Diabetes Care. 2016.39(Suppl 1). Potassium [Moles/Vol] 4.7 mmol/L Normal 3.7-5.1 [facility] Sodium [Moles/Vol] 130 mmol/L Low 136-144 [facility] Urea nitrogen [Mass/Vol] 97 mg/dL High 7-21 [facility] CASE MGT INIT [facility] 2020 CASE MGT INIT [facility] HNO ID: [id number] Author: Nicol Landin RN Service: ? 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 Stated Goals: To have reduction in [...] scheduled Advance Directive: Current Advance Directive: None Hop Farmer Attempted to Assist with AD Completion: Yes [...] Walker Has the Patient Been in a [facility] Facility in the Past 30 days?: No SOCIAL: Living Arrangements: Home Lives With: (ex-, three grandchildren who she has permanent custody ages 15, 14, 10) Financial Resources: Retired Primary Contact: Extended Emergency Contact Information Primary Emergency Contact: [place]A Mobile Relation: Grandchild Caregiver AssessmentCaregiver is ready, willing and able to meet the patient's needs as recommended by the inter-professional team:: Yes Does the patient have an acute stroke diagnosis, or has the patient had a stroke during this admission?: No Patient's transition needs and plan for meeting these needs: Patient's dzgkexfd-rp-fyx and son live close by and come over to help often Patient's perception of need for this admission: necessary Medication Adherance I am convinced of the importance of my prescription medication: 0 - Agree Completely I worry that my prescription medication will do more harm than good to me : 0 - Disagree Completely I feel financially burdened by my uzc-lg-qzficy expenses for my prescription medication:: 0 - Disagree Completely Risk Score: 0 Patient is categorized as: Low risk < 2 Are you interested in bedside delivery of your medications? Yes Is Patient Psychosocially Complex?: Yes, refer to Social Work ASSESSMENT AND PLAN: Medical Needs: Medical Needs: Two or more chronic diseases Psychosocial Needs: Psychosocial Needs: None FREEDOM OF CHOICE EXPLAINED: [place] of Choice Given: No Reason Not Given: [...] and hospitalized about 1 month ago in [place] but no resolution of her symptoms. She [...] 18, 2021 TIME: 10:51 AM PAGER/CONTACT #: [phone] Normal [facility] CBCon 01-18-2021 Absolute nRBC <0.01 Normal <0.01 [facility] Erythrocyte distribution width (RBC) [...] (Bld) [Entitic vol] 10.8 fL Normal 9.0-12.7 [facility] Platelets (Bld) [#/Vol] 310 10*3/uL Normal 150-400 [facility] RBC (Bld) [#/Vol] 4.05 10*6/uL Normal 3.90-5.20 [facility] WBC (Bld) [#/Vol] 17.03 10*3/uL High 3.70-11.00 [facility] CONSULTon 01-18-2021 CONSULT HNO ID: [id number] Author: Annie Trinidad DO Service: Hypertension AND [...] Noted a no-show appointment to urology at [facility]. She also reports that she has had [...] We are called to see patient for ANATLOIY and hyponatremia. PAST MEDICAL HISTORY: PAST MEDICAL [...] [facility] CONSULT HNO ID: [id number] Author: Taurus Ballard MD Service: Urology Author Type: Physician Type: Consults Filed: 01/18/2021 8:27 AM Note Text: [facility] UROLOGY CONSULT NOTE NAME: Aislinn Wheeler BED: [id number] SERVICE DATE: 01/18/2021 SERVICE TIME: 8:21 AM [...] Performed By: #### U SAUNDRA, UOSM, UCRR ####[facility] [address] [place], [place] [phone] Magnesiumon 01-18-2021 Magnesium [Mass/Vol] 1.9 mg/dL Normal 1.7-2.3 [facility] NURSING PROGon 01-18-2021 NURSING PROG HNO ID: [id number] Author: Barbara pSicer, REY Service: ? Author Type: Registered Nurse [...] on above: Performed By: #### O SM ####[facility] [address] [place], [place] [phone] Osmolality, Urineon 01-19-20 21 Osmolality, Urine 273 mOsm/kg Normal 50-1200 [facility] Comment on above: Performed By: #### U SAUNDRA, UOSM, UCRR ####[facility] [place], [place] [phone] Sepsis Lactateon 01-18-2021 Sepsis Lactate 0.9 mmol/L Normal <2.1 [facility] Sodium,Urine,Randomon 2020 Sodium (U) [Moles/Vol] 32 mmol/L Normal 14-216 [facility] Comment on above: Performed By: #### U SAUNDRA, UOSM, UCRR ####[facility] [place], [place] [phone] THERAPY NTon 01-18-2021 THERAPY NT HNO ID: [id number] Author: Wendy Montes De Oca OT/L Service: Occupational Therapy Author Type: Occupational Therapist Type: Therapy (PT/OT/Speech/Resp) Filed: 01/18/2021 1:10 PM Note Text: Occupational Therapy Evaluation SERVICE DATE: 01/18/2021 SERVICE TIME: 853 to 914 ROOM: [place] [address] Recommended Discharge Disposition: Home OT Recommended Discharge [...] 0 Tub/Shower Type: tub shower Laundry: basement, [id number]-rsj Equipment Owned: Cane;Standard Walker CURRENT FUNCTIONAL STATUS: [...] and signs-other Interventions Provided: Evaluation $ Evaluation-Moderate (51343) Billed Units: 1 unit Training and education [...] DATE: January 18, 2021 TIME: 1:06 PM [facility] Urine Cultureon 01-18-2021 Bacteria identified Cx Nom (U) Sp. Request/Comment: - Specimen received in preservative Culture Result - No growth (<1,000 CFU/ml) [facility] Comment on above: Performed By: #### U RCUL ####[facility] [place], [place] [phone] Blood Cultureon 01-17-2021 Bacteria identified Cx Nom (Bld) Culture Result - No growth 5 days Normal [facility] Comment on above: Performed By: #### B LCUL ####[facility] [place], [place] [phone] C-Reactive Proteinon 021 C-Reactive Protein 32.4 mg/dL High <0.9 [facility] Comment on above: Performed By: #### W SR ####[facility] [address] [place], [place] [phone] CBC and Differentialon 01-17 Abs Baso <0.03 Normal <0.11 [facility] Abs Eosin <0.03 Normal <0.46 [facility] Abs [place] 0.73 k/uL Normal <0.87 [facility] Abs Neut 14.70 k/uL High 1.45-7.50 [facility] Absolute nRBC <0.01 Normal <0.01 [facility] Basophils/100 WBC (Bld) 0.1 % [...] Center NRBCs 0.0 /100 WBC Normal 0 [facility] Platelet mean volume (Bld) [Entitic vol] 11.4 fL Normal 9.0-12.7 [facility] Platelets (Bld) [#/Vol] 345 10*3/uL Normal 150-400 [facility] RBC (Bld) [#/Vol] 4.67 10*6/uL Normal 3.90-5.20 [facility] WBC (Bld) [#/Vol] 17.33 10*3/uL High 3.70-11.[address] [facility] [address] ABD/PEL WO IVCONon 2020 CT ABD/PEL WO IVCON * * *Final Report* * * DATE OF EXAM: Jan 17 2021 8:05PM [facility] 0531 - CT ABD/PEL WO IVCON / PROCEDURE REASON: Mass or lump, abdomen pelvis * * * * Physician Interpretation * * * * CT OF CHEST, ABDOMEN AND PELVIS WITHOUT CONTRAST CLINICAL HISTORY: Aspiration (accession [id number]), Mass or lump, abdomen pelvis (accession [id number]) Concern for possible source of infection vs [...] report for details. Pelvic bones are intact. Director Corporate Sales (topogram) images: Unremarkable. IMPRESSION: Left upper lobe [...] be communicated with the ordering provider via [employer] staff message or phone message by Imaging Support Services within 2 business days of report finalization. ACTIONABLE RESULT: FOLLOW-UP Acuity: Actionable Findings: Kidneys/Ureters/Bladder /Adrenal Routing Code: GU_1 Recommendation: MRI KIDNEY WO/W IVCON Time Frame: non-urgent, but prompt follow-up. COMMUNICATION: Results will be communicated with the ordering provider via [employer] staff message or phone message by Imaging Support Services within 2 business days of report finalization. Algorithms for management of incidental imaging findings can be found on the [facility] Intranet Sharepoint site at: [email or web address] Managing%20Incidental%2 0Findi ngs%20at%20Imaging/Form s/AllItems.aspx Report Manager: GUILLE Transcribe Date/Time: Jan 17 2021 8:20P Dictated by : PADILLA JIM MD This examination was interpreted and the report reviewed and electronically signed by: PADILLA JIM MD on Jan 17 2021 8:43PM EST [id number] ACTIONABLE Invalid Interpretation Code [facility] CT BRAIN WO IVCONon 01-18-[address] BRAIN WO IVCON * * *Final Report* * * DATE OF EXAM: Jan 17 2021 4:26PM [facility] 0504 - CT BRAIN WO IVCON / [...] base and imaged soft tissues are unremarkable. Director [employer] (topogram) images: No additional findings. IMPRESSION: No acute intracranial hemorrhage or mass effect is seen Report Manager: GUILLE Transcribe Date/Time: Jan 17 2021 4:47P [...] DATE OF EXAM: Jan 17 2021 4:26PM [facility] 0505 - CT CERVICAL SPINE WO IVCON [...] Counting reference: Craniocervical junction. Anatomic Variants: None. [employer] (topogram) images: No additional findings. Alignment: Straightening [...] vertebrae with counting from the craniocervical junction. Report Manager: GUILLE Transcribe Date/Time: Jan 17 2021 4:49P Dictated by : JOHN THAKKAR MD This examination was interpreted and the report reviewed and electronically signed by: JOHN THAKKAR MD on Jan 17 2021 4:53PM EST [id number] [facility] CT CHEST WO IVCONon 01-18-[address] CHEST WO IVCON * * *Final Report* * * DATE OF EXAM: Jan 17 2021 8:05PM [facility] 0541 - CT CHEST WO IVCON / PROCEDURE REASON: Aspiration * * * * Physician Interpretation * * * * CT OF CHEST, ABDOMEN AND PELVIS WITHOUT CONTRAST CLINICAL HISTORY: Aspiration (accession [id number]), Mass or lump, abdomen pelvis (accession [id number]) Concern for possible source of infection vs [...] report for details. Pelvic bones are intact. Director [employer] Sales (topogram) images: Unremarkable. IMPRESSION: Left upper lobe [...] be communicated with the ordering provider via [employer] staff message or phone message by Imaging Support Services within 2 business days of report finalization. ACTIONABLE RESULT: FOLLOW-UP Acuity: Actionable Findings: Kidneys/Ureters/Bladder /Adrenal Routing Code: GU_1 Recommendation: MRI KIDNEY WO/W IVCON Time Frame: non-urgent, but prompt follow-up. COMMUNICATION: Results will be communicated with the ordering provider via [employer] staff message or phone message by Imaging Support Services within 2 business days of report finalization. Algorithms for management of incidental imaging findings can be found on the [facility] Intranet Sharepoint site at: [email or web address] Managing%20Incidental%2 0Findi ngs%20at%20Imaging/Form s/AllItems.aspx Report Manager: GUILLE Transcribe Date/Time: Jan 17 2021 8:20P [...] DATE OF EXAM: Jan 17 2021 5:34PM [facility] 0508 - CT LUMBAR SPINE WO IVCON [...] are 5 lumbar-type vertebrae. Anatomic variant: None. Director [employer] Sales (topogram) images: No additional findings. Alignment: Alignment [...] on 01/17/2021 6:08 PM via verbal communication. Report Manager: GUILLE Transcribe Date/Time: Jan 17 2021 6:05P Dictated by : JOHN THAKKAR MD This examination was interpreted and the report reviewed and electronically signed by: JOHN THAKKAR MD on Jan 17 2021 6:01PM EST This document has been addended by: JOHN THAKKAR MD on Jan 17 2021 6:08PM EST [id number] [facility] CT THORACIC SPINE WO IVCONon 01-17-2021 CT THORACIC SPINE WO IVCON * * *Final Report* * * DATE OF EXAM: Jan 17 2021 5:34PM [facility] 0514 - CT THORACIC SPINE WO IVCON [...] the purposes of this report, anatomic variants: Director Corporate Sales (topogram) images: No additional findings. Alignment: Alignment [...] and assume there are 5 lumbar-type vertebrae. Report Manager: GUILLE Transcribe Date/Time: Jan 17 2021 6:03P [...] Center Bilirubin [Mass/Vol] 0.4 mg/dL Normal 0.2-1.3 [facility] Calcium [Mass/Vol] 9.6 mg/dL Normal 8.5-10.2 [facility] Chloride [Moles/Vol] 83 mmol/L Low 97-105 [facility] CO2 [Moles/Vol] 20 mmol/L Low 22-30 [facility] Creatinine [Mass/Vol] 2.93 mg/dL High 0.58-0.96 [facility] eGFR- Amer. 20 Normal [facility] eGFR-All Other Races 16 . [...] ospital Comment on above: Result Comment: The [place] [employer] (ADA) provides guidance for cutoff [...] Standards of Medical Care in Diabetes 2016, [place] [employer]. Diabetes Care. 2016.39(Suppl 1). Potassium [Moles/Vol] 5.5 mmol/L High 3.7-5.1 [facility] Protein [Mass/Vol] 9.5 g/dL High 6.3-8.0 [facility] Sodium [Moles/Vol] 120 mmol/L Low 136-144 [facility] Comment on above: Result Comment: Resu lt checked and verified Urea nitrogen [Mass/Vol] 104 mg/dL High 7-21 [facility] ED NOTEon 01-17-2021 ED NOTE HNO ID: [id number] Author: Prerna Luke RN Service: ? Author Type: Registered Nurse Type: ED Notes Filed: 01/17/2021 9:32 PM Note Text: Report called to 4E RN. Patient stable for transport at this time. [facility] ED NOTE HNO ID: [id number] Author: Prerna Luke RN Service: ? Author Type: Registered Nurse Type: ED Notes Filed: 01/17/2021 9:20 PM Note Text: 16Fr chaves inserted with 500 cc urine immediately drained. Patient tolerated well. [facility] ED NOTE HNO ID: [id number] Author: Prerna Luke RN Service: ? Author Type: Registered Nurse Type: ED Notes Filed: 01/17/2021 7:22 PM Note Text: BC obtained by lab. ABX infusing at this time. [facility] ED NOTE HNO ID: [id number] Author: Prerna Luke RN Service: ? Author Type: Registered Nurse Type: ED Notes Filed: 01/17/2021 7:06 PM Note Text: This RN and 2 medics unable to straight stick patient for blood or draw from existing IVs. Lab will draw one set of BC; GIANNI Tucker notified that only one set will be obtained. [facility] ED NOTE HNO ID: [id number] Author: Prerna Luke RN Service: ? Author Type: Registered Nurse Type: ED Notes Filed: 01/17/2021 4:25 PM Note Text: XR at bedside [facility] ED NOTE HNO ID: [id number] Author: Prerna Luke RN Service: ? Author Type: Registered Nurse Type: ED Notes Filed: 01/17/2021 4:03 PM Note Text: covid swab obtained and walked to lab. [facility] ED NOTE HNO ID: [id number] Author: Bharat Patterson RN Service: ? Author [...] Reports oral intake has been poor Normal [facility] ED PROV NOTEon 01-17-2021 ED PROV NOTE HNO ID: [id number] Author: Garrett Simon PA-C Service: Emergency Medicine Author Type: Physician Building And Construction Manager Type: ED Provider Notes Filed: 01/17/2021 [...] Center HISTORY PHYSICALon HISTORY PHYSICAL HNO ID: [id number] Author: Trevor Porras MD Service: Hospital Medicine Author Type: Physician Type: HANDP Filed: 01/17/2021 10:12 PM Note Text: DEPARTMENT OF HOSPITAL MEDICINE HISTORY AND PHYSICAL EXAM SERVICE DATE: 01/17/2021 Code Status: Not on file SERVICE TIME: 10:00 PM Primary Care Physician: No Pcp NIGHT AND WEEKEND COVERAGE: GADSDEN COVERAGE: Days: [phone], please contact via [employer] Nights: [phone], please page CC Hospitalist Night coverage pager [phone] Subjective CHIEF COMPLAINT: Generalized weakness, falls HPI: [...] on above: Performed By: #### I TCOVD ####[facility] [place], [place] [phone] SARS-CoV-2 (COVID-19) RNA ADRIEL+probe Ql (Unsp spec) Negative for COVID19 (SARS CoV2) by RT-PCR or equivalent method. Normal Negative for COVID19 (SARS CoV2) by RT-PCR or equivalent method. [facility] Comment on above: Result Comment: This test was developed and its performance characteristics determined by [facility]'s [facility] [place]. This test has been authorized by FDA under an Emergency Use Authorization (EUA). This test has been validated in accordance with the FDA's Guidance Document Policy for Diagnostics Testing in Laboratories Certified to Perform High Complexity Testing under CLIA prior to Emergency use Authorization for Coronavirus Disease 2019 during the Public Health Emergency issued on October 19, 2019. Test performed by [facility], [facility] [place], [address] [place], [place] [address]. Performed By: #### I TCOVD ####[facility] [place], [place] [phone] Magnesiumon 01-17-2021 Magnesium [Mass/Vol] 2.0 mg/dL Normal 1.7-2.3 [facility] NT Pro BNPon 01-17-2021 PRO B Natr Peptide 394 pg/mL High <125 [facility] Sed Rate Westergrenon 2020 Sed Rate Westergren 124 mm/hr High 0-20 [facility] Comment on above: Performed By: #### W SR ####[facility] [place], [place] [phone] TSHon 01-17-2021 TSH Qn 0.615 m[IU]/L Normal 0.270-4.200 [facility] Trop[facility] Ton 01-17-2021 Troponin T.cardiac [Mass/Vol] 0.023 ug/L Normal 0.000-0.029 [facility] Urinalysis with Microscopico n 01-17-2021 Bacteria Present Critically abnormal 0 [facility] Bilirubin, Urine Negative Normal Negative [facility] pital Cast SEE COMMENT Normal 0 [facility] Comment on above: Result Comment: 0 Clarity (U) Turbid Critically abnormal Clear [facility] Color (U) Yellow Normal Yellow [facility] Glucose Ql (U) Negative Normal Negative [facility] Hemoglobin/Blood,Ur 2+ Critically abnormal Negative [facility] Ketones Ql (U) Negative Normal Negative [facility] tae Leukest 3+ Critically abnormal Negative [facility] Nitrite Ql (U) Positive Critically abnormal Negative [facility] pH (U) 8.5 [pH] High 5.0-8.0 [facility] Protein, Urine 2+ Critically abnormal Negative [facility] RBC 3-5 Critically abnormal 0-3 [facility] Specific [place], Ur 1.013 Normal 1.005-1.030 [facility] Urobilinogen Qn (U) 0.2 {Madeleine'U}/dL Normal [...] Comment on above: Performed By: #### U [facility] ####[facility] [place], [place] [phone] XR CHEST 1V FRONTAL PORTon 0 01-17-2021 [...] exam with no evidence of acute disease. Report Manager: PSCKimberlyn Transcribe Date/Time: Jan 17 2021 4:40P Dictated by : FLASH WOODS MD This examination was interpreted and the report reviewed and electronically signed by: FLASH WOODS MD on Jan 17 2021 4:41PM EST [id number] Normal [facility] Vital Signs Date Time Vital Sign Value Performing Clinician Facility 09-04-2024 11:25-0500 Diastolic blood pressure 110 mm[Hg] [facility] 09-04-2024 11:25-0500 Systolic blood pressure 216 mm[Hg] [facility] 09-04-2024 11:23-0500 Body height 152.4 cm [facility] 09-04-2024 11:23-0500 Body mass index (BMI) [Ratio] 24.9 kg/m2 [facility] 09-04-2024 11:23-0500 Body temperature 96.5 [degF] [place] [facility] 09-04-2024 11:23-0500 Body weight 57.83 kg [facility] 09-04-2024 11:23-0500 Heart rate 73 /min [facility] 09-04-2024 11:23-0500 Respiratory rate 16 /min [facility] 09-04-2024 11:23-0500 SaO2% (BldA) [Mass fraction] 99 % [facility] 08-27-2024 14:36-0500 Body height 152.4 cm Agusto Olmstead [employer] Work Phone: [facility] 08-27-2024 14:36-0500 Body mass index (BMI) [Ratio] 25.94 kg/m2 Agusto Zapataholz [employer]EE[employer]IER Work Phone: [facility] 08-27-2024 14:36-0500 Body temperature 98.8 [degF] Agusto Barlowz [employer]EE[employer]IER Work Phone: [facility] 08-27-2024 14:36-0500 Body weight 60.24 kg Agusto Barlowz [employer]EE[employer] Work Phone: [facility] Comment on above: with winter coat on 08-27-2024 14:36-0500 Diastolic blood pressure 86 mm[Hg] Agusto Barlowz [employer]EE[employer]IER Work Phone: [facility] 08-27-2024 14:36-0500 Heart rate 71 /min Agusto Jodiholz [employer]EE[employer]IER Work Phone: [facility] 08-27-2024 14:36-0500 Respiratory rate 20 /min Agustosahara Zapataholz BEE[employer]IER Work Phone: [facility] 08-27-2024 14:36-0500 SaO2% (BldA) [Mass fraction] 97 % Agustosahara Zapataholz [employer]EE[employer]IER Work Phone: [facility] 08-27-2024 14:36-0500 Systolic blood pressure 178 mm[Hg] Agustosahara Zapataholz BEE[employer]IER Work Phone: [facility] 07-03-2024 11:59-0500 Body height 152.4 cm Sweta Kosmos [employer] PA-C Work Phone: [facility] 07-03-2024 11:59-0500 Body mass index (BMI) [Ratio] 23.83 kg/m2 Sweta Verhoff PA-C Work Phone: [facility] 07-03-2024 11:59-0500 Body weight 55.34 kg Sweta Verhoff PA-C Work Phone: [facility] [facility] 07-03-2024 11:59-0500 Diastolic blood pressure 94 mm[Hg] Sweta Verhoff PA-C Work Phone: [facility] 07-03-2024 11:59-0500 Heart rate 80 /min Sweta Verhoff PA-C Work Phone: [facility] 07-03-2024 11:59-0500 SaO2% (BldA) [Mass fraction] 100 % Sweta Verhoff PA-C Work Phone: [facility] 07-03-2024 11:59-0500 Systolic blood pressure 144 mm[Hg] Sweta Verhoff PA-C Work Phone: [facility] 06-11-2024 11:32-0400 Body height 152.4 cm Agusto Cainz [employer] Work Phone: [facility] 06-11-2024 11:32-0400 Body mass index (BMI) [Ratio] 25.19 kg/m2 Agusto Jodiholz [employer]IER Work Phone: [facility] 06-11-2024 11:32-0400 Body temperature 98.1 [degF] Agusto Cainz [employer]EE[employer]IER Work Phone: [facility] 06-11-2024 11:32-0400 Body weight 58.51 kg Agusto Pennyhholz BEE[employer]IER Work Phone: [facility] 06-11-2024 11:32-0400 Diastolic blood pressure 82 mm[Hg] Agusto Jodiholz BEE[employer] GRA[employer]IER Work Phone: [facility] 06-11-2024 11:32-0400 Heart rate 75 /min Agusto Jodiholz [employer]EE[employer]IER Work Phone: [facility] 06-11-2024 11:32-0400 Respiratory rate 18 /min Agusto Aichholz [employer]EE[employer]IER Work Phone: [facility] 06-11-2024 11:32-0400 SaO2% (BldA) [Mass fraction] 97 % Agusto Aysha [employer]IER Work Phone: [facility] 06-11-2024 11:32-0400 Systolic blood pressure 140 mm[Hg] Agusto Aysha [employer]EE[employer]IER Work Phone: [facility] 06-05-2024 15:05-0400 Body height 154.94 cm [facility] 06-05-2024 15:05-0400 Body mass index (BMI) [Ratio] 23.4 kg/m2 [facility] 06-05-2024 15:05-0400 Body temperature 97.6 [degF] [facility] 06-05-2024 15:05-0400 Body weight 56.3 kg [facility] 06-05-2024 15:05-0400 Diastolic blood pressure 75 mm[Hg] [facility] 06-05-2024 15:05-0400 Heart rate 86 /min [facility] 06-05-2024 15:05-0400 Respiratory rate 16 /min [facility] 06-05-2024 15:05-0400 SaO2% (BldA) [Mass fraction] 97 % [facility] 06-05-2024 15:05-0400 Systolic blood pressure 123 mm[Hg] [facility] 05-01-2024 10:45-0400 Diastolic blood pressure 96 mm[Hg] Juanito Barnard MD Work Phone: [facility] 05-01-2024 10:45-0400 Heart rate 74 /min Juanito Barnard MD Work Phone: [facility] 05-01-2024 10:45-0400 Systolic blood pressure 173 mm[Hg] Juanito Barnard MD Work Phone: [facility] 04-16-2024 14:25-0400 Body height 152.4 cm Agusto Olmstead [employer]IER Work Phone: [facility] 04-16-2024 14:25-0400 Body mass index (BMI) [Ratio] 24.88 kg/m2 Agusto Olmstead [employer]IER Work Phone: [facility] 04-16-2024 14:25-0400 Body temperature 97.81 [degF] Agusto Olmstead [employer]EE[employer]IER Work Phone: [facility] 04-16-2024 14:25-0400 Body weight 57.79 kg Agusto Olmstead BEE[employer]IER Work Phone: [facility] 04-16-2024 14:25-0400 Diastolic blood pressure 80 mm[Hg] Agusto Olmstead BEE[employer]IER Work Phone: [facility] 04-16-2024 14:25-0400 Heart rate 80 /min Agusto Olmstead BEE[employer]IER Work Phone: [facility] 04-16-2024 14:25-0400 Respiratory rate 18 /min Agusto Olmstead [employer]EE[employer]IER Work Phone: [facility] 04-16-2024 14:25-0400 SaO2% (BldA) [Mass fraction] 95 % Agusto Olmstead [employer]EE[employer]IER Work Phone: [facility] 04-16-2024 14:25-0400 Systolic blood pressure 116 mm[Hg] Agusto Olmstead [employer]EE[employer]IER Work Phone: [facility] 03-26-2024 10:48-0400 Body mass index (BMI) [Ratio] 24.41 kg/m2 Carmenza Nolen MD Work Phone: [facility] 03-26-2024 10:48-0400 Body weight 56.7 kg Carmenza Nolen MD Work Phone: [facility] Comment on above: [facility] 01-12-2024 13:50-0400 Diastolic blood pressure 69 mm[Hg] Taurus Ballard MD Work Phone: [facility] 01-12-2024 13:50-0400 Heart rate 75 /min Taurus Ballard MD Work Phone: [facility] 01-12-2024 13:50-0400 Systolic blood pressure 142 mm[Hg] Taurus Ballard MD Work Phone: [facility] 10-25-2023 15:12-0500 Blood Pressure Location HEIDY ARNOLD [facility] 10-25-2023 15:12-0500 Body temperature 96.8 [degF] HEIDY ARNOLD [facility] 10-25-2023 15:12-0500 Diastolic blood pressure 78 mm[Hg] HEIDY CATALINA [facility] 10-25-2023 15:12-0500 Heart rate 86 /min HEIDY ARNOLD [facility] 10-25-2023 15:12-0500 Systolic blood pressure 122 mm[Hg] HEIDY ARNOLD [facility] 08-01-2023 15:00-0500 Body height 154.94 cm [facility] 06-08-2023 13:00-0400 Body height 154.94 cm Tondra Mapus Other [employer] [facility] [employer] Other 06-08-2023 13:00-0400 Body mass index (BMI) [Ratio] 25.37 kg/m2 Tondra Mapus Other [employer] Other 06-08-2023 13:00-0400 Body weight 60.92 kg Tondra Mapus Other [employer] Other 06-08-2023 13:00-0400 Diastolic blood pressure 66 mm[Hg] Tondra Mapus Other [employer] Other 06-08-2023 13:00-0400 Respiratory rate 18 /min Tondra Mapus Other [employer] Other 06-08-2023 13:00-0400 SaO2% (BldA) [Mass fraction] 100 % Tondra Mapus Other [employer] Other 06-08-2023 13:00-0400 Systolic blood pressure 107 mm[Hg] Tondra Mapus Other [employer] Other 05-18-2023 11:00-0400 Body height 154.94 cm Tondra Mapus Other [employer] Other 05-18-2023 11:00-0400 Body mass index (BMI) [Ratio] 24.69 kg/m2 Tondra Mapus Other [employer] Other 05-18-2023 11:00-0400 Body weight 59.29 kg Tondra Mapus Other [employer] Other 05-18-2023 11:00-0400 Diastolic blood pressure 96 mm[Hg] Tondra Mapus Other [employer] Other 05-18-2023 11:00-0400 Respiratory rate 18 /min Tondra Mapus Other [employer] Other 05-18-2023 11:00-0400 SaO2% (BldA) [Mass fraction] 97 % Tondra Mapus Other [employer] Other 05-18-2023 11:00-0400 Systolic blood pressure 161 mm[Hg] Sara Augustine Other [facility] [employer] Other 02-22-2023 08:34-0400 Blood Pressure Location Lisa Lue [facility] 02-22-2023 08:34-0400 Diastolic blood pressure 66 mm[Hg] Lisa Lue [facility] 02-22-2023 08:34-0400 Heart rate 76 /min Lisa Lue [facility] 02-22-2023 08:34-0400 Systolic blood pressure 106 mm[Hg] Lisa Lue [facility] 12-27-2022 16:00-0400 Body height 154.94 cm [employer] Other [facility] [employer] Other 12-27-2022 16:00-0400 Body mass index (BMI) [Ratio] 26.11 kg/m2 [employer] Other [facility] [employer] Other 12-27-2022 16:00-0400 Body temperature 96.5 [degF] [employer] Other [facility] [employer] Other 12-27-2022 16:00-0400 Body weight 62.69 kg [employer] Other [employer] Other 12-27-2022 16:00-0400 Diastolic blood pressure 98 mm[Hg] [employer] Other [facility] [employer] Other 12-27-2022 16:00-0400 Respiratory rate 18 /min Eli Sprague Other [facility] [employer] Other 12-27-2022 16:00-0400 SaO2% (BldA) [Mass fraction] 98 % Eli Sprague Other [facility] [employer] Other 12-27-2022 16:00-0400 Systolic blood pressure 151 mm[Hg] Eli Sprague Other [facility] [employer] Other 09-21-2022 08:42-0500 Blood Pressure Location Lisa Sharife [facility] 09-21-2022 08:42-0500 Diastolic blood pressure 67 mm[Hg] Lisa Lue [facility] 09-21-2022 08:42-0500 Heart rate 74 /min Lisa Lue [facility] 09-21-2022 08:42-0500 Systolic blood pressure 103 mm[Hg] Lisa Lue [facility] Encounters Encounter Date Encounter Type Care Provider Facility Start: 09-04-2024 End: 09-04-2024 ambulatory [facility] Work Phone: Start: 09-04-2024 End: 09-04-2024 Patient encounter procedure [facility] Work Phone: Start: 08-28-2024 End: 08-28-2024 Clinisync Result Encounter Generic External Data Provider [facility] External Department Unsolicited Start: 08-28-2024 End: 08-28-2024 Clinisync Result Encounter Generic External Data Provider [facility] External Department Unsolicited Start: 08-28-2024 Non-patient / Non-visit [facility] Physician [facility] Work Phone: Start: 08-27-2024 End: 08-27-2024 Office outpatient visit 25 minutes Agusto Olmstead [employer] [facility] Comment on above: Essential (primary) hypertension (CMS/HCC) (Primary Dx); Type 2 diabetes mellitus with diabetic neuropathy, with long-term current use of insulin ([facility]); Chronic kidney disease, stage 4 (severe) ([facility]); Neurogenic bladder; Type 2 diabetes mellitus with hyperglycemia, with long-term current use of insulin ([facility]); Type 2 diabetes mellitus with diabetic neuropathy, unspecified whether longterm insulin use ([facility]); Other chest pain; Continuous leakage of urine Start: 08-27-2024 End: 08-27-2024 Bamboo flowsheet Agusto Olmstead [employer] Work Phone: [facility] Start: 08-27-2024 End: 08-27-2024 Bamboo flowsheet Agusto Olmstead [employer] Work Phone: [facility] Start: 08-27-2024 End: 08-27-2024 ambulatory AGUSTO AYSHA Not Available Start: 08-22-2024 End: 08-23-2024 Refill Asia Barreto RN [facility] Comment on above: 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 Start: 08-13-2024 End: 08-13-2024 Orders Only Agusto Olmstead [employer] Work Phone: [facility] FM Start: 08-08-2024 End: 08-08-2024 Clinisync Result Encounter Agusto Olmstead [employer] Work Phone: [facility] External Department Unsolicited Start: 08-08-2024 End: 08-08-2024 Clinisync Result Encounter Agusto Olmstead BEE[employer]IER Work Phone: [facility] External Department Unsolicited Start: 07-15-2024 End: 07-26-2024 Refill Asia Barreto RN [facility] Comment on above: 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; Complex regional pain syndrome type 1 of right upper extremity Start: 07-03-2024 End: 07-03-2024 Office outpatient visit 25 minutes Sweta iL PA-C Work Phone: [facility] Comment on above: Complex regional jeffrey n syndrome type 1 of right upper extremity (Primary Dx); Encounter for long-term opiate analgesic use Start: 07-03-2024 End: 07-03-2024 ambulatory SWETA LI [facility] Start: 06-26-2024 End: 06-26-2024 Telephone encounter Adama Velasco RN Work Phone: Urology Comment on above: 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; Returning Patient's Call Start: 06-11-2024 End: 06-11-2024 Bamboo flowsheet Agusto Olmstead NP Work Phone: [facility] Start: 06-11-2024 End: 06-11-2024 Bamboo flowsheet Agusto Olmstead NP Work Phone: [facility] Start: 06-11-2024 End: 06-11-2024 Office outpatient visit 25 minutes Agusto Olmstead NP Work Phone: [facility] Comment on above: Type 2 diabetes maria m itus with hyperglycemia, with long-term current use of insulin ([facility]) (Primary Dx); Type 2 diabetes mellitus with diabetic chronic kidney disease ([facility]); Chronic kidney disease, stage 3b (HCC) ([facility]); Hyperparathyroidism, unspecified (CMS/HCC); Malignant neoplasm of cervix uteri, unspecified (CMS/HCC); Rheumatoid arthritis, unspecified ([facility]/HCC); Essential (primary) hypertension ([facility]); 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; Iron deficiency anemia, unspecified iron deficiency anemia type; Primary hypertension ([facility]); Type 2 diabetes mellitus with diabetic neuropathy, unspecified whether longterm insulin use ([facility]); RSD (reflex sympathetic dystrophy); Continuous leakage of urine; 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, left, sequela (CMS/HCC); Skin lesion of face Start: 06-11-2024 End: 06-21-2024 Refill Asia Barreto RN [facility] Comment on above: 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; Complex regional pain syndrome type 1 of right upper extremity Start: 06-05-2024 End: 06-05-2024 ambulatory [facility] Work Phone: Start: 06-05-2024 End: 06-05-2024 Patient encounter procedure [facility] Work Phone: Start: 05-10-2024 Non-patient / Non-visit [facility] Work Phone: Start: 05-08-2024 End: 05-08-2024 Refill Agusto Olmstead [employer] Work Phone: [facility] Comment on above: Nausea and vomiting, unspecified [...] of insulin ([facility]); Other hydronephrosis; BURKE (stress urinary incontinence, female); Bladder compliance low Start: 04-26-2024 End: 04-27-2024 Non-patient / Non-visit [facility] Work Phone: Start: 04-26-2024 End: 05-01-2024 Clinisync [...] Department Unsolicited Start: 04-24-2024 End: 04-24-2024 ambulatory [facility] Start: 04-24-2024 End: 04-24-2024 ambulatory [facility] Start: 04-18-2024 End: 04-18-2024 Refill Agustosahara Olmstead [employer] Work Phone: [facility] Comment on above: Chronic cough (Prima ry Dx) Start: 04-16-2024 End: 04-16-2024 Office outpatient visit 25 minutes Agusto Olmstead [employer] Work Phone: [facility] Comment on above: Chronic cough (Prima ry Dx); Type 2 diabetes mellitus with diabetic chronic kidney disease (HCC) (CMS/HCC); Chronic kidney disease, stage 3b (HCC) (CMS/HCC); Hyperparathyroidism, unspecified (CMS/HCC); Rheumatoid arthritis, unspecified (CMS/HCC); Malignant neoplasm of cervix uteri, unspecified (CMS/HCC); Type 2 diabetes mellitus with hyperglycemia, with long-term current use of insulin (CMS/HCC) Start: 04-16-2024 End: 04-16-2024 ambulatory AGUSTO AYSHA Not Available Start: 04-16-2024 End: 04-16-2024 Bamboo flowsheet Agusto Aysha [employer] Work Phone: [facility] Start: 04-16-2024 End: 04-16-2024 Bamboo flowsheet Agusto Aysha [employer] Work Phone: [facility] Start: 04-15-2024 End: 04-15-2024 ambulatory Chioma Durán [facility] Start: 04-09-2024 End: 04-09-2024 ambulatory CARMENZA NOLEN Facility:[facility] Start: 04-09-2024 End: 04-09-2024 Patient encounter [...] of urine Start: 03-29-2024 End: 03-29-[address] Facility:[facility] Start: 03-27-2024 ambulatory Nuria garrett APRN.CNP Work Phone: Pulmonary Medicine Start: 03-26-2024 End: 03-26-2024 ambulatory CARMENZA NOLEN Facility:[facility] Start: 03-26-2024 End: 03-26-2024 Patient encounter procedure Carmenza Nolen MD Work Phone: Urology Comment on above: Retention of urine ( Primary Dx); Screening for genitourinary condition; Type 2 diabetes mellitus with hyperglycemia, with long-term current use of insulin (HCC); BURKE (stress urinary incontinence, female) Start: 03-16-2024 End: 03-16-2024 ambulatory JYOTHI SHELTON [facility] Start: 03-15-2024 End: 03-15-2024 ambulatory ZACKERY PEDRO [facility] Start: 02-26-2024 Telephone encounter Flavio Coon RN [facility] Start: 02-12-2024 Telephone encounter Vonnie Wilder RN [facility] Comment on above: Results - Ct Start: 02-01-2024 End: 02-01-2024 [facility] Facility:[facility] Start: 02-01-2024 End: 02-01-2024 Subsequent hospital visit by physician Arrival Time Radiology Work Phone: Radiology [facility] Comment on above: Other hydronephrosis [N13.39] Start: 01-24-2024 End: 01-24-2024 ambulatory [facility] Start: 01-17-2024 End: 01-17-2024 ambulatory AGUSTO AICHHOLZ Not Available Start: 01-12-2024 End: 01-12-2024 Patient encounter procedure Taurus Ballard MD Work Phone: Urology Comment on above: Other hydronephrosis (Primary Dx); Screening for genitourinary condition Start: 01-12-2024 End: 01-12-2024 ambulatory TAURUS BALLARD Facility:[facility] Start: 12-21-2023 End: 12-21-2023 ambulatory AGUSTO AICHHOLZ Not Available Start: 12-13-2023 End: 12-13-2023 ambulatory [facility] Start: 11-16-2023 End: 11-16-2023 ambulatory AGUSTO AICHHOLZ Not Available Start: 11-06-2023 Sotero Barreto RN [facility] Comment on above: 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; Complex regional pain syndrome type 1 of right upper extremity Start: 11-02-2023 ambulatory PA-C HEIDY Noel acility:[facility] [place] Start: 10-25-2023 End: 10-26-2023 ambulatory PA-C HEIDY ARNOLD Facility:[facility] [place] Start: 10-25-2023 End: 10-25-2023 Patient encounter procedure HEIDY ARNOLD [facility] [place] Start: 10-14-2023 End: 10-14-2023 ambulatory KATEY DIAMOND [facility] Start: 10-13-2023 End: 10-13-2023 ambulatory ZACKERY PEDRO [facility] Start: 10-11-2023 End: 10-11-2023 ambulatory AGUSTO AICHHOLZ Not Available Start: 10-11-2023 Patient encounter procedure Agusto Aichholz [employer] Work Phone: [facility] Start: 10-10-2023 Refill Agusto Marina Pimentel [facility] Comment on above: 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; Complex regional pain syndrome type 1 of right upper extremity Start: 09-29-2023 End: 09-29-2023 ambulatory ZACKERY PEDRO [facility] Start: 09-29-2023 End: 09-29-2023 ambulatory Drew Esqueda Research Coordinator [facility] Provider Adult Comment on above: [facility] IRB# [id number] Start: 09-28-2023 E-mail encounter fro m caregiver Drew Esqueda Research Coordinator [facility] Start: 09-27-2023 Telephone encounter Drew bourne Research Coordinator [facility] Provider Adult Comment on above: Research F/U Start: 09-26-2023 Telephone encounter Drew bourne Research Coordinator [facility] Provider Adult Comment on above: Research F/U Start: 09-12-2023 End: 09-13-2023 ambulatory PA-C HEIDY ARNOLD Facility:[facility] Start: 09-12-2023 End: 09-12-2023 Patient encounter procedure HEIDY ARNOLD [facility] Start: 09-07-2023 Refill Yesenia Burnett RN [facility] Comment on above: 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 Start: 09-05-2023 End: 09-05-2023 ambulatory Sara Augustine Other [employer] Other Start: 09-05-2023 Telephone encounter Sara Augustine [facility] Start: 08-09-2023 End: 08-09-2023 ambulatory [facility] Start: 08-09-2023 End: 08-09-2023 ambulatory [facility] Start: 08-01-2023 End: 08-01-2023 Patient encounter procedure [facility] Nephrology Michael Work Phone: Start: 07-18-2023 End: 07-19-2023 ambulatory PROMISE ARNOLD Facility:[facility] ue Start: 07-05-2023 End: 07-05-2023 Orders Only Taurus Ballard MD Work Phone: Urology Comment on above: Kidney cyst, acquire d (Primary Dx) Start: 07-05-2023 Telephone encounter Eli Sprague [facility] Nephrology Start: 06-28-2023 End: 06-29-2023 [facility]ulatory [facility] Start: 06-28-2023 End: 06-28-2023 Patient encounter procedure Lisa Porras [facility] Start: 06-26-2023 End: 06-26-2023 ambulatory Tondra Mapus Other [employer] Other Start: 06-26-2023 Telephone encounter Tondra Mapus [facility] Endocrinology Start: 06-23-2023 Telephone encounter Heidy harris RN Urology Comment on above: Surgical Followup Start: 06-22-2023 End: 06-23-2023 ambulatory TAURUS BALLARD Facility:[facility] Start: 06-19-2023 ambulatory Taurus newton MD Work Phone: Urology Comment on above: Aislinn Wheeler upchiloin g procedure Start: 06-15-2023 Telephone encounter Vonnie Wilder RN Ur ology Comment on above: Pre-Op Teaching Start: 06-12-2023 End: 06-12-2023 ambulatory Tondra Mapus Other [employer] Other Start: 06-12-2023 Telephone encounter Tondra Mapus [facility] Start: 06-08-2023 End: 06-08-2023 Lab Drop off HEIDY ARNOLD [facility] Start: 06-08-2023 End: 06-08-2023 Patient encounter procedure [facility]USTO Watson AYSHA [facility] Start: 06-08-2023 (PUMP/CGM) Pump / Sensor Sara Augustine [facility] Start: 06-08-2023 End: 06-09-2023 ambulatory [facility] [employer] [facility] [employer] Other Start: 05-22-2023 End: 05-23-2023 ambulatory Lisa Porras Facility:[facility] Start: 05-22-2023 End: 05-22-2023 Patient encounter procedure Lisa Porras [facility] Start: 05-18-2023 End: 05-18-2023 ambulatory Sohaildrsahara Dumontus [facility] [facility] Other Start: 05-18-2023 [facility] visit new patient [facility] Start: 05-18-2023 Telephone encounter Taurus rees MD Work Phone: Urology Comment on above: Follow Up Start: 05-17-2023 End: 05-17-2023 ambulatory TAURUS BALLARD Facility:[facility] Start: 05-11-2023 End: 2023 ambulatory PA-C HEIDY ARNOLD Facility:[facility] Start: 05-11-2023 End: 05-11-2023 Lab Drop off HEIDY ARNOLD [facility] Start: 05-03-2023 End: 05-04-2023 ambulatory Lisa Porras Facility:[facility] Start: 04-18-2023 End: 04-19-2023 ambulatory PA-C HEIDY ARNOLD Facility:[facility] Start: 04-18-2023 End: 04-19-2023 ambulatory Lisa Porras Facility:[facility] Start: 04-18-2023 End: 04-18-2023 Lab Drop off HEIDY ARNOLD [facility] Start: 04-18-2023 End: 04-18-2023 Patient encounter procedure Lisa Porras [facility] Start: 04-04-2023 End: 04-04-2023 ambulatory Brigette Wesley Other [facility] [employer] [facility] Other Start: 04-04-2023 Telephone encounter Brigette Wesley [facility] Start: 02-22-2023 End: 02-23-2023 ambulatory Lisa Porras Facility:[facility] Start: 02-22-2023 End: 02-22-2023 Patient encounter procedure Lisa Porras [facility] Start: 01-09-2023 End: 01-09-2023 ambulatory Azyanet Bakdis Other [facility] [facility] Other Start: 01-09-2023 Telephone encounter Azyanet Bakhous [facility] Start: 01-03-2023 End: 01-04-2023 ambulatory MANAGER UTILIZATION MANAGEMENT AGUSTO AICHHOLZ Facility:[facility] Start: 12-28-2022 End: 12-29-2022 ambulatory MANAGER UTILIZATION MANAGEMENT AGUSTO AICHHOLZ Facility:[facility] Start: 12-27-2022 End: 12-27-2022 ambulatory Aziz Bakhous [facility] [employer] [facility] Other Start: 12-27-2022 Office outpatient ne w 30 minutes Aziz Bakhous [facility] Start: 12-15-2022 End: 12-16-2022 ambulatory MANAGER UTILIZATION MANAGEMENT AGUSTO AICHHOLZ Facility:[facility] Start: 12-14-2022 End: 12-15-2022 ambulatory PETER D HIGHLANDER Facility:[facility] Start: 10-27-2022 End: 10-28-2022 ambulatory MANAGER UTILIZATION MANAGEMENT AGUSTO AICHHOLZ Facility:[facility] Start: 10-24-2022 End: 10-25-2022 ambulatory MANAGER UTILIZATION MANAGEMENT AGUSTO AICHHOLZ Facility:[facility] Start: 10-12-2022 End: 10-13-2022 ambulatory MANAGER UTILIZATION MANAGEMENT AGUSTO AICHHOLZ Facility:[facility] Start: 10-05-2022 End: 10-06-2022 ambulatory MANAGER UTILIZATION MANAGEMENT AGUSTO AICHHOLZ Facility:[facility] Start: 09-29-2022 End: 09-30-2022 ambulatory MANAGER UTILIZATION MANAGEMENT AGUSTO AICHHOLZ Facility:[facility] Start: 09-21-2022 End: 09-22-2022 ambulatory PETER D HIGHLANDER Facility:[facility] Start: 09-21-2022 End: 09-21-2022 Patient encounter procedure Lisa Porras [facility] Start: 09-15-2022 End: 09-16-2022 ambulatory MANAGER UTILIZATION MANAGEMENT AGUSTO AICHHOLZ Facility:[facility] Start: 09-13-2022 End: 09-13-2022 Patient encounter procedure HEIDY ARNOLD [facility] Start: 09-08-2022 End: 09-09-2022 ambulatory MANAGER UTILIZATION MANAGEMENT AGUSTO AICHHOLZ Facility:[facility] Start: 09-02-2022 End: 09-03-2022 ambulatory PETER D HIGHLANDER Facility:[facility] Start: 08-26-2022 End: 08-27-2022 ambulatory PETER D HIGHLANDER Facility:[facility] Start: 08-09-2022 End: 08-10-2022 ambulatory RAMON D HIGHLANDER Facility:[facility] Start: 08-05-2022 End: 08-06-2022 ambulatory PETER D HIGHLANDER Facility:[facility] Start: 08-04-2022 End: 08-05-2022 ambulatory PETER D HIGHLANDER Facility:[facility] Start: 08-03-2022 End: 08-04-2022 ambulatory MANAGER UTILIZATION MANAGEMENT AGUSTO OLMSTEAD Facility:[facility] Start: 08-02-2022 End: 08-03-2022 ambulatory MANAGER UTILIZATION MANAGEMENT AGUSTO OLMSTEAD Facility:[facility] Start: 08-01-2022 End: 08-02-2022 ambulatory MANAGER UTILIZATION MANAGEMENT AGUSTO OLMSTEAD Facility:[facility] Start: 07-19-2022 End: 07-20-2022 ambulatory MANAGER UTILIZATION MANAGEMENT AGUSTO OLMSTEAD Facility:[facility] Start: 07-08-2022 End: 07-09-2022 ambulatory MANAGER UTILIZATION MANAGEMENT AGUSTO OLMSTEAD Facility:[facility] Start: 07-06-2022 End: 07-07-2022 ambulatory MANAGER UTILIZATION MANAGEMENT AGUSTO OLMSTEAD Facility:[facility] Start: 07-05-2022 End: 07-06-2022 ambulatory RAMON Tillman [facility] Facility:[facility] Start: 06-28-2022 End: 06-29-2022 ambulatory RAMON Tillman [facility] Facility:[facility] Start: 06-24-2022 End: 06-25-2022 ambulatory RAMON Tillman [facility] Facility:[facility] Start: 06-11-2022 End: 06-16-2022 Evaluation and management of inpatient DR NENO VIEIRA . Facility:[facility] Start: 06-02-2022 End: 06-02-[address] NELL PALMA Facility:[facility] Start: 06-02-2022 End: 06-03-2022 ambulatory RAMON Tillman [facility] Facility:[facility] Start: 2022 End: 2022 ambulatory RAQUEL SABA . Facility:[facility] Start: 01-27-2021 End: 01-27-2021 Telephone encounter Barb Silva MD Work Phone: Nephrology Comment on above: Appointment Procedures Date Procedure Procedure Detail Performing Clinician Start: 08-28-2024 HMHP CBC WITH PLATEL ET NO DIFFERENTIAL Generic External Data Provider Start: 08-08-2024 MLR HEMOGLOBIN A1C Agusto Olmstead [employer] Work Phone: Start: 05-01-2024 Urnls dip stick/tabl et rgnt auto w/o microscopy Bulk Order Provider Start: 04-26-2024 BLOOD CULTURE 1 Generic External Data Provider Start: 04-26-2024 BLOOD CULTURE 2 Generic External Data Provider Start: 04-25-2024 Bacteria identified in Urine by Culture Generic External Data Provider Start: 04-17-2024 Mammography Agusto hills [employer] Work Phone: Start: 03-26-2024 Urnls dip stick/tabl [...] H/O: hysterectomy History of hysterectomy Agusto Olmstead [employer] Work Phone: Start: 06-22-2023 Laparoscopic partial nephrectomy of left kidney HEIDY ARNOLD Start: 05-22-2023 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 AGUSTO OLMSTEAD Ankle region structu re (body structure) [...] 04-28-2026 Screening for malignant neoplasm of colon [facility] Start: 07-03-2025 Adult BMI Screening Adult BMI Screening [facility] Start: 07-03-2025 Tobacco Screening Tobacco Screening [facility] Start: 04-24-2025 Adult BMI Screening Adult BMI Screening [facility] Start: 04-24-2025 Tobacco Screening Tobacco Screening [facility] Start: 04-17-2025 Screening for malignant neoplasm of breast [facility] Start: 01-31-2025 Creatinine measurement Serum Creatinine [facility] Start: 01-10-2025 Pneumococcal Vaccine: 65+ Years (1 of 2 - PCV) Pneumococcal Vaccine: 65+ Years (1 of 2 - PCV) [facility] Comment on above: Postponed from 1964 (Patient Refus ed) Start: 11-06-2024 Hemoglobin A1c measurement Diabetes: Hemoglobin A1C [facility] Start: 10-23-2024 Urine screening for protein Diabetes: Urine Protein Screening [facility] Start: 10-13-2024 Tobacco Screening Tobacco Screening [facility] Start: 10-11-2024 Medicare Annual Wellness (AWV) Medicare Annual Wellness (AWV) [facility] Start: 10-09-2024 End: 10-09-2024 Patient encounter procedure 10/09/2024 11:15 AM EST Office Visit [facility] [address] [place] [phone] Sweta Li, PAJaya [address] [place] [address] [facility] Start: 09-29-2024 Tobacco Screening Tobacco Screening [facility] Start: 09-11-2024 End: 09-11-2024 Patient encounter procedure 09/11/2024 11:00 AM EST Office Visit [facility] [address] [place] [address] Agusto Olmstead, [employer] [address] [place] [phone] [facility] Start: 09-03-2024 Complete blood count Hemoglobin/Hematocrit [facility] Start: 09-03-2024 Creatinine measurement Serum Creatinine [facility] Start: 08-27-2024 End: 08-27-2024 Patient encounter procedure 08/27/2024 2:20 PM EST Office Visit [facility] [address] [place] [address] Agusto Olmstead, [employer] [address] [place] [phone] [facility] Comment on above: Arrived Start: 08-27-2024 End: 08-27-2025 Basic metabolic 1998 panel - Serum or Plasma Basic metabolic panel Lab Routine Type 2 diabetes mellitus with diabetic neuropathy, with long-term current use of insulin ([facility]) Expected: 08/27/2024 (Approximate), Expires: 08/27/2025 [facility] Work Phone: Comment on above: Expected: 08/27/2024 (Approximate), Expi res: 08/27/2025 Start: 08-27-2024 End: 08-27-2024 Patient encounter procedure 08/27/2024 11:30 AM EST Office Visit [facility] [address] [place] [address] Agusto Olmstead, LUIS [address] [place] [phone] [facility] Start: 08-09-2024 Adult BMI Screening Adult BMI Screening [facility] Start: 08-09-2024 Tobacco Screening Tobacco Screening [facility] Start: 06-26-2024 End: 06-26-2024 Patient encounter procedure 06/26/2024 12:30 PM EST Office Visit [facility] [address] [place] [phone] Sweta Li PA-C [address] [facility], [address]nd [address] [place], [place] [phone] [facility] Start: 06-24-2024 End: 06-24-2024 Patient encounter procedure 06/24/2024 11:00 AM EST Office Visit [facility] [address] [place] [address] Agusto Olmstead NP [address] [place] [phone] [facility] Start: 06-23-2024 Hemoglobin/Hematocrit Hemoglobin/Hematocrit [facility] Start: 06-23-2024 Serum Creatinine Serum Creatinine [facility] Start: 06-11-2024 End: 06-11-2025 Basic metabolic 1998 panel - Serum or Plasma Basic metabolic panel Lab Routine Type 2 diabetes mellitus with hyperglycemia, with long-term current use of insulin ([facility]) Expected: 06/11/2024 (Approximate), Expires: 06/11/2025 [facility] Phone: Comment on above: Expected: 06/11/2024 (Approximate), Expi res: 06/11/2025 Start: 06-11-2024 End: 06-11-2025 Hemoglobin A1c/Hemoglobin.total in Blood Hemoglobin A1c Lab Routine Type 2 diabetes mellitus with hyperglycemia, with long-term current use of insulin (CMS/HCC) Expected: 06/11/2024 (Approximate), Expires: 06/11/2025 [facility] Comment on above: Expected: 06/11/2024 (Approximate), Expi res: 06/11/2025 Start: 06-11-2024 End: 06-11-2024 Patient encounter procedure 06/11/2024 11:30 AM EDT Office Visit [facility] [address] [place] [phone] Agusto Olmstead NP [address] [place] [phone] Type 2 diabetes mellitus with diabetic chronic kidney disease (CMS/HCC); Chronic kidney disease, stage 3b (HCC) (CMS/HCC); Hyperparathyroidism, unspecified (CMS/HCC); Malignant neoplasm of cervix uteri, unspecified (CMS/HCC); Rheumatoid arthritis, unspecified (CMS/HCC) [facility] Comment on above: Type 2 diabetes mellitus with diabetic c hronic kidney disease (CMS/HCC); Chronic kidney disease, stage 3b (HCC) (CMS/HCC); Hyperparathyroidism, unspecified (CMS/HCC); Malignant neoplasm of cervix uteri, unspecified (CMS/HCC); Rheumatoid arthritis, unspecified (CMS/HCC) Start: 06-06-2024 Hemoglobin/Hematocrit Hemoglobin/Hematocrit [facility] Start: 06-06-2024 Serum Creatinine Serum Creatinine [facility] Start: 06-04-2024 Hemoglobin A1c measurement Diabetes: Hemoglobin A1C [facility] Start: 05-28-2024 End: 05-28-2024 Patient encounter procedure 05/28/2024 1:20 PM EDT Office Visit [facility] [address] [place] [phone] Agusto Olmstead NP [address] [place] [phone] FRANCISCO LUO Start: 05-10-2024 End: 05-10-2024 ambulatory 05/10/2024 11:30 AM EDT [facility] [address] [address] Juanito Barnard MD [address] [phone] add on per staff message Urology Comment on above: add on per staff message Start: 05-01-2024 End: 07-31-2024 Basic metabolic 2000 panel - Serum or Plasma BASIC METABOLIC PANEL Lab Routine Stage 3b chronic kidney disease (HCC) Expected: 05/01/2024, Expires: 07/31/2024 [facility] Work Phone: Comment on above: Expected: 05/01/2024, Expires: 4 Start: 05-01-2024 End: 07-31-2024 CYSTATIN C CYSTATIN C Lab Routine Stage 3b chronic kidney disease (HCC) Expected: 05/01/2024, Expires: 07/31/2024 [facility] Comment on above: Expected: 05/01/2024, Expires: Start: 05-01-2024 End: 05-01-2024 Patient encounter procedure 05/01/2024 10:00 AM EDT Office Visit Urology [address] [address] Juanito Barnard MD [address] [place] [address] discuss bladder augment per Dr. Nolen Urology Comment on above: discuss bladder augment per Dr. Nolen Start: 04-21-2024 Covid-19 Vaccine () Covid-19 Vaccine () [facility] Start: 04-21-2024 COVID-19 Vaccine () COVID-19 Vaccine () [facility] Start: 04-21-2024 Influenza vaccination [facility] Start: 04-16-2024 End: 04-16-2024 Patient encounter procedure 04/16/2024 2:20 PM EDT Office Visit [facility] [address] [place] [address] Agusto Olmstead NP [address] [place] [address] Type 2 diabetes mellitus with diabetic chronic kidney disease (HCC) (CMS/HCC); Chronic kidney disease, stage 3b (HCC) (CMS/HCC); Hyperparathyroidism, unspecified (CMS/HCC); Rheumatoid arthritis, unspecified (CMS/HCC); Malignant neoplasm of cervix uteri, unspecified (CMS/HCC) [facility] Comment on above: Type 2 diabetes mellitus with diabetic c hronic kidney disease (HCC) (CMS/HCC); Chronic kidney disease, stage 3b (HCC) (CMS/HCC); Hyperparathyroidism, unspecified (CMS/HCC); Rheumatoid arthritis, unspecified (CMS/HCC); Malignant neoplasm of cervix uteri, unspecified (CMS/HCC) Start: 04-16-2024 End: 04-16-2025 XR Chest 2 Views XR chest 2 views Imaging Routine Chronic cough Expected: 04/16/2024 (Approximate), Expires: 04/16/2025 [facility] Work Phone: Comment on above: Expected: 04/16/2024 (Approximate), Expi res: 04/16/2025 Start: 04-09-2024 End: 04-09-2024 Follow-up encounter 04/09/2024 9:30 AM EDT [facility] [address] [place] [address] Carmenza Nolen MD [address] [place] [address] 1 week follow up per dr. nolen Urology Comment on above: 1 week follow up per dr. nolen Start: 04-04-2024 Hepatitis B screening Urine Albumin:Creatinine Ratio [facility] Start: 03-29-2024 End: 03-29-2024 Nursing evaluation of patient and report 03/29/2024 3:00 PM EDT Nurse Visit Urology [address], [place] [address] [employer] [address] [place] [address] [R33.9] Retention of urine Urology Comment on above: [R33.9] Retention of urine Start: 03-26-2024 End: 03-26-2024 Patient encounter procedure 03/26/2024 11:00 AM EDT Office Visit Urology [address] [place] [address] Carmenza Nolen MD [address] [place], [place] [phone] Follow up per Dr. Ballard Urology Comment on above: Follow up per Dr. 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 encounter procedure [facility] Comment on above: Continuous leakage of Urine Start: 01-22-2024 DIABETES SCREEN DIABETES SCREEN [facility] Start: 01-19-2024 End: 04-19-2024 CREATININE BLD CREATININE BLD Lab Routine Other hydronephrosis Expected: 01/19/2024 (Approximate), Expires: 04/19/2024 [facility] Comment on above: Expected: 01/19/2024 (Approximate), Expi res: 04/19/2024 Start: 01-19-2024 End: 02-10-2025 CT Kidney WO and W contrast IV CT UROGRAM WO/W IVCON Radiology Routine Other hydronephrosis Expected: 01/19/2024 (Approximate), Expires: 02/10/2025 [facility] Work Phone: Comment on above: Expected: 01/19/2024 (Approximate), Expi res: 02/10/2025 Start: 12-29-2023 Screening for malignant neoplasm of breast Mammogram [facility] Start: 11-22-2023 End: 11-22-2023 Patient encounter procedure 11/22/2023 11:15 AM EDT Office Visit [facility] [address] [place] [address] Sweta Li PA-C [address] [place] [address] [facility] Start: 10-25-2023 End: 10-25-2023 Patient encounter procedure 10/25/2023 12:45 PM EST Office Visit [facility] [address] [place] [phone] Sweta Li PA-C [address] [place], [place] [phone] [facility] Start: 10-13-2023 End: 10-13-2023 Njx anes stellate ganglion crv sympathetic INJECTION BLOCK NERVE STELLATE GANGLION NECK Complex regional pain syndrome type 1 of right upper extremity 10/13/2023 12:44 PM EST [facility] Start: 10-13-2023 End: 10-13-2023 Patient encounter procedure 10/13/2023 9:55 AM EST Appointment [facility] [address] [place] [phone] Zackery Pedro MD [address] [place], [place] [phone] [facility] Start: 10-05-2023 End: 01-04-2024 Basic metabolic 2000 panel - Serum or Plasma BASIC METABOLIC PNL Lab Routine Kidney cyst, acquired Expected: 10/05/2023 (Approximate), Expires: 01/04/2024 [facility] Work Phone: Comment on above: Expected: 10/05/2023 (Approximate), Expi res: 01/04/2024 Start: 10-05-2023 End: 08-03-2024 US KIDNEY/BLADDER US KIDNEY/BLADDER Radiology Routine Kidney cyst, acquired Expected: 10/05/2023 (Approximate), Expires: 08/03/2024 [facility] Work Phone: Comment on above: Expected: 10/05/2023 (Approximate), Expi res: 08/03/2024 Start: 09-06-2023 Hemoglobin A1c measurement HbA1C [facility] Start: 09-06-2023 Hemoglobin A1c/Hemoglobin.total in Blood HbA1C [facility] Start: 08-21-2023 Advance Directive Discussion Advance Directive Discussion [facility] Start: 08-21-2023 Behavioral Health Screening Behavioral Health Screening [facility] Start: 08-21-2023 Depression Assessment Depression Assessment [facility] Start: 2023 Advance Directive Discussion Advance Directive Discussion [facility] Start: 2023 Bone Density Screening Bone Density Screening [facility] Start: 2023 Fall Risk Screening Fall Risk Screening [facility] Start: 2023 Screening for osteoporosis Bone Density Screening [facility] Start: 04-21-2023 Covid-19 Vaccine ( season) Covid-19 Vaccine ( season) [facility] Start: 04-21-2023 Covid-19 Vaccine ( season) Covid-19 Vaccine ( season) [facility] Start: 04-21-2023 Influenza vaccination [facility] Start: 08-21-2022 Depression Assessment Depression Assessment [facility] Start: 04-21-2021 Influenza vaccination INFLUENZA (Season Ended) [facility] Start: 2018 Hepatitis B Vaccine (1 of 3 - Risk 3-dose series) Hepatitis B Vaccine (1 of 3 - Risk 3-dose series) [facility] Start: 2018 RSV Vaccine (1 - 1-dose 60+ series) RSV Vaccine (1 - 1-dose 60+ series) [facility] Start: 2018 RSV Vaccine (1 - Risk 60-74 years 1-dose series) RSV Vaccine (1 - Risk 60-74 years 1-dose series) [facility] Start: 2008 Administration of varicella zoster vaccine Zoster (Shingles) Vaccine (1 of 2) [facility] Start: 2008 Screening for malignant neoplasm of colon [facility] Start: 2008 SHINGRIX VACCINE (1 of 2) SHINGRIX VACCINE (1 of 2) [facility] Start: 2003 Cologuard (FIT-DNA) Cologuard (FIT-DNA) [facility] Start: 2003 Colonoscopy Colonoscopy [facility] Start: 2003 Colorectal Cancer Screening Colorectal Cancer Screening [facility] Start: [address] Colonography [facility] Start: 2003 Fecal Occult Blood Fecal Occult Blood [facility] Start: 2003 LIPID SCREEN LIPID SCREEN [facility] Start: 2003 Screening for malignant neoplasm of colon [facility] Start: 2003 Sigmoidoscopy Sigmoidoscopy [facility] Start: 1998 Mammography [facility] Start: 1998 Screening for malignant neoplasm of breast Mammogram Screening [facility] Start: 1988 HPV TESTING HPV TESTING [facility] Start: 1979 PAP TESTING PAP TESTING [facility] Start: 1977 DTaP,Tdap and Td Vaccines (1 - Tdap) DTaP,Tdap and Td Vaccines (1 - Tdap) [facility] Start: 1977 Urine microalbumin profile [facility] Start: 1976 Annual PCP Team Chronic Disease Visit Annual PCP Team Chronic Disease Visit [facility] Start: 1976 Anxiety Screening Anxiety Screening [facility] Start: 1976 BP Controlled (<130/80) BP Controlled (<130/80) [facility] Start: 1976 Depression Screening Depression Screening [facility] Start: 1976 Diabetic foot examination Diabetic Foot Exam [facility] Start: 1976 Hepatitis B surface antibody level LDL Cholesterol [facility] Start: 1976 HEPATITIS C SCREENING HEPATITIS C SCREENING [facility] Start: 1976 Hepatitis C screening Hepatitis C Screening [facility] Start: 1976 HIV SCREENING HIV SCREENING [facility] Start: 1976 HIV screening HIV Screening [facility] Start: 1976 Spirometry Spirometry [facility] Start: 1970 Adult depression screening assessment DEPRESSION SCREENING [facility] Start: 1970 COVID-19 VACCINE (1) COVID-19 VACCINE (1) [facility] Start: 1968 3 comp foot exam completed Diabetic Foot Exam [facility] Start: 1968 Diabetic foot examination Diabetic Foot Exam [facility] Start: 1968 Glaucoma screening [facility] Start: 1968 Hepatitis B screening Urine Albumin:Creatinine Ratio [facility] Start: 1968 Hepatitis C antibody, confirmatory test Dilated Retinal Exam [facility] Start: 1964 Pneumococcal Vaccine: 65+ (1 - PCV) Pneumococcal Vaccine: 65+ (1 - PCV) [facility] Start: 1964 Pneumococcal Vaccine: 65+ (1 of 2 - PCV) Pneumococcal Vaccine: 65+ (1 of 2 - PCV) [facility] Start: 1958 Glaucoma screening Diabetic Ophthalmology Exam [facility] Start: 1960 Screening for malignant neoplasm of colon [facility] Start: 1960 Urine screening for protein Urine Microalbumin [facility] FLUROURODYNAMICS WITH EMG FLUROU RODYNAMICS WITH EMG Procedures Routine Retention of urine BURKE (stress urinary incontinence, female) Ordered: 03/26/2024 [facility] Work Phone: Comment on above: Ordered: 03/26/2024 Njx anes stellate ganglion crv sympathetic INJECTION BLOCK NERVE STELLATE GANGLION NECK Complex regional pain syndrome type 1 of right upper extremity [place] [facility]IN Njx anes stellate ganglion crv sympathetic INJECTION BLOCK NERVE STELLATE GANGLION NECK Complex regional pain syndrome type 1 of right upper extremity [facility] Renal function 1999 panel - Serum or Plasma [facility] Renal function 1999 panel - Serum or Plasma [facility] [place] [facility] [place] [facility] Immunizations Immunization Date Immunization Notes Care Provider Lukas pacheco 06-23-2022 tuberculin skin test ; purified protein derivative solution, intradermal Agusto Aichholz BEEF CATTLE GRAZIER Work Phone: [facility] 06-16-2022 tuberculin skin test ; purified protein derivative solution, intradermal Agusto Aichholz BEEF CATTLE GRAZIER Work Phone: [facility] 04-02-2021 SARS-CoV-2 (COVID-19 ) mRNA-1273 vaccine HEIDY ARNOLD [facility] 03-02-2021 Moderna SARS-CoV-2 Vaccination Agusto Aysha SMITH Work Phone: [facility] 12-07-2020 SARS-CoV-2 (COVID-19 ) mRNA-1273 vaccine HEIDY ARNOLD [facility] 06-03-2016 influenza virus vaccine, unspecified formulation HEIDY ARNOLD [facility] 06-03-2016 influenza, seasonal, injectable, preservative free Drew Esqueda Research Coordinator [facility] Payers Date Payer Category Payer Medicare O [facility] MEDICARE [id number] 2023 Medicare (Managed Care) [facility] EDICARE ADVANTAGE [id number] 2023 Private Health Insurance [id number] 2023 Self-pay 2022 Medicare [id number] 2022 Medicare [id number] .[id number] 2006 Medicare MEDICARE MEDICAR E A [id number] 2006-Present [place] Medicare [id number] 2003 Worker's Comp Other Managed Care [facility] [id number] 2003 Unknown [id number] 1959 Medicare [id number] 2.16.840.1.105070.19 1959 Unknown [id number] 1959 Unknown [id number] 1958 Unknown [id number] 2.16.840.1.913335.3.579.2 .593 1958 Unknown [id number] 2.16.840.1.804596.3.579.2 .593 1958 Unknown [id number] 2.16.840.1.638925.3.579.2 .593 1958 Unknown [id number] 2.16.840.1.403867.3.579.2 .593 1958 Unknown [id number] 2.16.840.1.661699.3.579.2 .593 1958 Unknown [id number] 2.16.840.1.327142.3.579.2 .593 1958 Unknown [id number] 2.16.840.1.606839.3.579.2 .593 1958 Unknown [id number] 2.16.840.1.267743.3.579.2 .593 1958 Unknown [id number] 2.16.840.1.202437.3.579.2 .593 1958 Unknown [id number] 2.16.840.1.221976.3.579.2 .593 1958 Unknown [id number] 2.16.840.1.652879.3.579.2 .593 1958 Unknown [id number] 2.16.840.1.512121.3.579.2 .593 1958 Unknown [id number] 2.16.840.1.226986.3.579.2 .593 1958 Unknown [id number] 2.16.840.1.846189.3.579.2 .593 1958 Unknown [id number] 2.16.840.1.762264.3.579.2 .593 1958 Unknown [id number] 2.16.840.1.576708.3.579.2 .593 1958 Unknown [id number] 2.16.840.1.777766.3.579.2 .593 1958 Unknown [id number] 2.16.840.1.711111.3.579.2 .593 1958 Unknown [id number] 2.16.840.1.317180.3.579.2 .593 1958 Unknown [id number] 2.16.840.1.736076.3.579.2 .593 1958 Unknown [id number] 2.16.840.1.343661.3.579.2 .593 1958 Unknown [id number] 2.16.840.1.142695.3.579.2 .593 1958 Unknown [id number] 2.16.840.1.394695.3.579.2 .593 1958 Unknown [id number] 2.16.840.1.336602.3.579.2 .593 1958 Unknown [id number] 2.16.840.1.840380.3.579.2 .593 1958 Unknown [id number] 2.16.840.1.765198.3.579.2 .593 1958 Unknown [id number] 2.16.840.1.653256.3.579.2 .593 1958 Unknown [id number] 2.16.840.1.029472.3.579.2 .593 1958 Unknown [id number] 2.16.840.1.664612.3.579.2 .593 1958 Unknown [id number] 2.16.840.1.517083.3.579.2 .593 1958 Unknown [id number] 2.16.840.1.882918.3.579.2 .593 1958 Unknown [id number] 2.16.840.1.213834.3.579.2 .727 1958 Unknown [id number] 2.16.840.1.253770.3.579.2 .727 1958 Unknown [id number] 2.16.840.1.905637.3.579.2 .727 1958 Unknown [id number] 2.16.840.1.215441.3.579.2 .727 1958 Unknown [id number] 2.16.840.1.842358.3.579.2 .727 1958 Unknown [id number] 2.16.840.1.598554.3.579.2 .1958 Unknown [id number] 2.16.840.1.805526.3.579.2 .72 1958 Unknown [id number] 2.16.840.1.191015.3.579.2 .1958 Unknown [id number] 2.16.840.1.775499.3.579.2 .1958 Unknown [id number] 2.16.840.1.596611.3.579.2 .1958 Unknown [id number] 2.16.840.1.485659.3.579.2 .1958 Unknown [id number] 2.16.840.1.465868.3.579.2 .1958 Unknown [id number] 2.16.840.1.037592.3.579.2 .1958 Unknown [id number] 2.16.840.1.079642.3.579.2 .1958 Unknown [id number] 2.16.840.1.834338.3.579.2 .1958 Unknown [id number] 2.16.840.1.383881.3.579.2 .1285 1958 Unknown [id number] 2.16.840.1.953887.3.579.2 .1285 1958 Unknown [id number] 2.16.840.1.240766.3.579.2 .1285 1958 Unknown [id number] 2.16.840.1.663972.3.579.2 .128 1958 Unknown [id number] 2.16.840.1.497691.3.579.2 .128 1958 Unknown [id number] 2.16.840.1.240024.3.579.2 .1285 1958 Unknown [id number] 2.16.840.1.524904.3.579.2 .1285 1958 Unknown [id number] 2.16.840.1.190743.3.579.2 .1285 1958 Unknown [id number] 2.16.840.1.538688.3.579.2 .1285 1958 Unknown [id number] 2.16.840.1.897188.3.579.2 .1285 1958 Unknown [id number] 2.16.840.1.151341.3.579.2 .1285 1958 Unknown [id number] 2.16.840.1.073767.3.579.2 .1285 1958 Unknown [id number] 2.16.840.1.063989.3.579.2 .1285 1958 Unknown [id number] 2.16.840.1.989201.3.579.2 .1285 1958 Unknown [id number] 2.16.840.1.456483.3.579.2 .1285 1958 Unknown [id number] 2.16.840.1.740763.3.579.2 .1285 1958 Unknown [id number] 2.16.840.1.473072.3.579.2 .1285 1958 Unknown [id number] 2.16.840.1.598681.3.579.2 .1258 1958 Unknown [id number] 2.16.840.1.272952.3.579.2 .1258 1958 Unknown [id number] 2.16.840.1.878613.3.579.2 .1258 1958 Unknown [id number] 2.16.840.1.080936.3.579.2 .1259 1958 Unknown [id number] 2.16.840.1.450693.3.579.2 .9 1958 Unknown [id number] 2.16.840.1.874827.3.579.2 .1259 1958 Unknown [id number] 2.16.840.1.925370.3.579.2 .1259 Medicare [id number] Unknown [facility] [id number] Unknown [id number] 2.16.840.1.617826.3.579.2 .531 Social History Date Type Detail Facility Start: 01-17-2021 End: 06-05-2024 Tobacco smoking status NHIS Never smoker [facility] Start: 01-17-2021 End: 10-11-2023 Tobacco use and exposure Never used [facility] Start: 01-17-2021 End: 04-09-2024 Alcohol intake Current drinker of alcohol (finding) [facility] Start: 01-17-2021 History SDOH Alcohol Frequency 1 [facility] Start: 01-17-2021 Alcohol Comment socially [facility] Start: 1960 Sex Assigned At Not on file [facility] Exposure to SARS-CoV -2 (event) Not sure [facility] Tobacco smoking status Never [facility] Start: 06-06-2023 End: 10-11-2023 Sex Assigned At Female [facility] Start: 06-06-2023 End: 10-11-2023 History of Social function [facility] Start: 06-06-2023 Alcohol Comment rarely--holida y or special occ [facility] Start: 08-09-2023 End: 07-03-2024 Alcohol intake Current non-drinker of alcohol (finding) [facility] Are you now , , , , never or living with a partner? [facility] How hard is it for y ou to pay for the very basics like food, housing, medical care, and heating Not very hard [facility] (I/We) worried wheth er (my/our) food would run out before (I/we) got money to buy more. DK or Refused [facility] Start: 1960 Sex Assigned At Female F [facility] Start: 04-16-2024 End: 08-27-2024 Alcoholic beverage intake Lifetime non-drinker (finding) [facility] [...] caffine: 1cup daily [facility] Start: 03-26-2015 End: 09-04-2024 Sex Female (finding) [facility] Procedure Code Equipment Code Equipment Origin al Text Equipment Identifier Dates 4 times daily use [id number] Start: 10-16-2023 End: 10-15-2024 Functional Status Date Assessment Result Facility 10-25-2023 Functional Status N/A [facility] 05-22-2023 Functional Status N/A [facility] 05-11-2023 Functional Status [facility] 02-22-2023 Functional Status N/A [facility] 09-21-2022 Functional Status N/A [facility] 09-13-2022 Functional Status N/A [facility] Clinical Notes 01-17-2021 to 08-27-2024 Agusto Olmstead NP - 08/27/2024 6:39 PM Georges Olmstead NP - 08/27/2024 6:33 PM Georges Olmstead NP - 08/27/2024 6:30 PM Georges Olmstead NP - 08/27/2024 3:00 PM ESTPatient Instructions Note Date & Type Note Facility 08-27-2024 History of Presen t illness Narrative Associated Problem(s): Neurogenic bladder Refer to Urogyn for second opinion about possible surgical options Associated Problem(s): Continuous leakage of urine Would like a second opinion about need for sling etc Associated Problem(s): Other chest pain Had stress test and ECHO in 2022 at [facility], no acute ischemic findings Strong risk factors for CAD [facility] [place], has seen Danial in the past Associated Problem(s): Type 2 diabetes mellitus with hyperglycemia, with long-term current use of insulin ([facility]) Check blood sugars daily, notify if <70 or >200. Take medications (pills or insulin) as directed. Monitor for s/s of hypoglycemia (sweaty, dizziness, nausea, vomiting, or shakiness). Watch for increase in thirst, urination, or appetite. Inspect feet frequently monitoring for open wounds , and also recommend yearly eye exam. Pt should attempt to remain as physically active as chronic conditions allow, as well as trying to follow a diet low in carbohydrates, and simple sugars. Current meds: statin, basal and bolus insulin, A1c: 10.1% on 08/08/24 Associated Problem(s): Chronic kidney disease, stage 4 (severe) ([facility]) Long standing uncontrolled HTN and DM Multiple attempts to get pt to specialists, does not follow through She is established with local Table Setter Continue to follow Goal: bp and DM control Associated Problem(s): Essential (primary) hypertension ([facility]) Please check blood pressure daily and record DASH diet Limit caffeine Take medication as directed Contact office if chest pain, pressure, dizziness, shortness of breath, swelling legs Recommend slow position changes Current meds: only metoprolol Will restart amlodipine at 5mg, looks as though she has not had this filled in some time and likely related to her elevated blood pressures, she will fu in office in 2 weeks for this Associated Problem(s): Type 2 diabetes mellitus with diabetic neuropathy, with long-term current use of insulin ([facility]) Reports increase in neuropathy symptoms, is on lyrica at 150mg TID, also takes percocet for RSD At last appt started addition of duloxetine at 20mg daily Table Setter on 09/04 Pt was told she needs to be scheduled with a director corporate sales she seen one over at [facility] before. Pt would also like another opinion with a urologist for a bladder sling- [facility] [place] Blurry vision, dizziness, feel spring intern the face Images from the original note were not included. Aislinn Wheeler is a 64 y.o. female presents with chief complaint of Diabetes and Hypertension HPI: Here for fu appt: since last appt was sent to [facility] d/t elevated potassium/kidney function, as well as chest pain and high blood pressure. She was admitted to [facility] a few weeks ago d/t elevated kidney function as well as potassium levels. She has long history of non compliance and fragmented care as well. She does report that her only blood pressure med is b rainer, there is amlodipine on her list, however she denies taking this, and pharmacy records due see to confirm that as well. She did have some chest pain upon her admission a few weeks ago, no chest pain now, has had ECHO and stress test in the last 18 months that were not remarkable for ischemia, however she certainly has major risk factors for developing CAD She follows with nephrology as well, however again misses appointments. She is aware she has CKD, however she does not truly understand the relationship between DM and BP control and how this effects the kidneys. She reports some issues with memory at times, not sure if she has dementia or not. When asks questions she provides appropriate answers. She does report her spouse in 2020, and she has suffered depression since then as well. SUBJECTIVE: MEDICATIONS: Current Outpatient Medications Medication Instructions amLODIPine (NORVASC) 5 mg, Oral, Daily atorvastatin (LIPITOR) 20 mg, Daily calcitriol (ROCALTROL) 0.25 mcg, 3 times weekly cetirizine (ZYRTEC) 10 mg, Oral, Daily cyanocobalamin (VITAMIN B-12) 1,000 mcg, Daily denosumab (PROLIA) 60 mg, Every 6 months ferrous sulfate 325 mg, Daily with breakfast fluticasone (Flonase) 50 MCG/ACT nasal spray 2 sprays, Each Nostril, Daily, Shake gently. Before first use, prime pump. After use, clean tip and replace cap. glucose blood (True Metrix Blood Glucose Test) test strip 4 times daily use HYDROcodone-acetaminophen (Ava) 7.5-325 MG tablet 1 tablet, 3 times daily PRN insulin glargine (LANTUS) 30 Units, Nightly insulin lispro (HumaLOG) 100 UNIT/ML injection INJECT 4-6-8 UNITS SUBCUTANEOUSLY THREE TIMES DAILY plus sliding scale coverage 2 (TWO) (max DAILY dose OF 30 UNITS) metoprolol succinate XL (TOPROL-XL) 50 mg, Oral, Daily nitroglycerin (NITROSTAT) 0.4 mg, Every 5 min PRN ondansetron ODT (ZOFRAN-ODT) 4 mg, Every 8 hours PRN pregabalin (Lyrica) 150 MG capsule 1 capsule, Oral, 3 times daily trospium (SANCTURA) 20 mg, Oral, Daily ALLERGIES: Allergies Allergen Reactions Latex Rash Added based on information entered during case entry, please review and add reactions, type, and severity as needed REVIEW OF SYMPTOMS: Review of Systems Constitutional: Positive for fatigue. Negative for appetite change, chills and fever. HENT: Negative for congestion, ear pain and sore throat. Eyes: Negative for pain, discharge, redness and visual disturbance. Respiratory: Negative for cough, shortness of breath and wheezing. Cardiovascular: Positive for chest pain. Negative for palpitations and leg swelling. Gastrointestinal: Negative for abdominal pain, blood in stool, constipation, diarrhea, nausea and vomiting. Genitourinary: Positive for difficulty urinating. Negative for dysuria and frequency. Urinary incontinence Musculoskeletal: Negative for arthralgias, back pain, joint swelling and myalgias. Skin: Negative for rash and wound. Neurological: Negative for dizziness, tremors, seizures, syncope and headaches. Memory impairment Psychiatric/Behavioral: Negative for behavioral problems, self-injury and suicidal ideas. The patient is not nervous/anxious. Hematological: Does not bruise/bleed easily. Endocrine: Negative for polydipsia, polyphagia and polyuria. Allergic/Immunologic: Negative for environmental allergies and food allergies. PAST MEDICAL HISTORY Past Medical History: Diagnosis Date Amputation of left great toe (CMS/HCC) Cervical cancer ([facility]/HCC) 10/11/2023 had Hysterectomy Charcot's joint of foot, left 10/11/2023 Chronic kidney disease, stage III (moderate) (HCC) (CMS/HCC) 10/11/2023 Fatty liver 10/11/2023 History of hysterectomy 10/11/2023 Cervical cancer Hyperkalemia Hyponatremia Leakage of urine from ureter Lupus Memory impairment of gradual onset MOCA: on [...] of nail of digit of hand Osteoporosis ([facility]) 10/11/2023 Post-menopausal 10/11/2023 Rheumatoid arthritis ([facility]) 10/11/2023 RSD (reflex sympathetic dystrophy) 10/11/2023 Type 2 diabetes mellitus with diabetic neuropathy, 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 OBJECTIVE: Visit Vitals BP 178/86 (BP Location: Left arm, Patient Position: Sitting, BP Cuff Size: Adult long) Pulse 71 Temp 98.8 F (Temporal) Resp 20 Ht 5' Wt 132 lb 12.8 oz Comment: with winter coat on SpO2 97% BMI 25.94 kg/m Smoking Status Never BSA 1.6 m Physical Exam Vitals and nursing note reviewed. Constitutional: General: She is not in acute distress. Appearance: Normal appearance. She is not ill-appearing. HENT: Head: Normocephalic and atraumatic. Right Ear: [...] normal. Breath sounds: Normal breath sounds. No wheezing, rhonchi or rales. Chest: Chest [...] normal. Judgment: Judgment normal. ASSESSMENT AND PLAN: Follow up in about 2 weeks (around 09/10/2024) for Recheck. Problem List Items Addressed This Visit Type 2 diabetes mellitus with hyperglycemia, with long-term current use of insulin ([facility]) Check blood sugars daily, notify if <70 or >200. Take medications (pills or insulin) as directed. Monitor for s/s of hypoglycemia (sweaty, dizziness, nausea, vomiting, or shakiness). Watch for increase in thirst, urination, or appetite. Inspect feet frequently monitoring for open wounds , and also recommend yearly eye exam. Pt should attempt to remain as physically active as chronic conditions allow, as well as trying to follow a diet low in carbohydrates, and simple sugars. Current meds: statin, basal and bolus insulin, A1c: 10.1% on 08/08/24 Relevant Orders Ambulatory referral to Cardiology Neurogenic bladder Refer to Urogyn for second opinion about possible surgical options Relevant Orders Ambulatory referral to Urogynecology Essential (primary) hypertension ([facility]) Please check blood pressure daily and record DASH diet Limit caffeine Take medication as directed Contact office if chest pain, pressure, dizziness, shortness of breath, swelling legs Recommend slow position changes Current meds: only metoprolol Will restart amlodipine at 5mg, looks as though she has not had this filled in some time and likely related to her elevated blood pressures, she will fu in office in 2 weeks for this Relevant Medications amLODIPine (Norvasc) 5 MG tablet Other Relevant Orders Ambulatory referral to Cardiology Type 2 diabetes mellitus with diabetic neuropathy, with long-term current use of insulin ([facility]) - Primary Reports increase in neuropathy symptoms, is on lyrica at 150mg TID, also takes percocet for RSD At last appt started addition of duloxetine at 20mg daily Relevant Orders Basic metabolic panel Continuous leakage of urine Would like a second opinion about need for sling etc Relevant Orders Ambulatory referral to Urogynecology Chronic kidney disease, stage 4 (severe) ([facility]) Long standing uncontrolled HTN and DM Multiple attempts to get pt to specialists, does not follow through She is established with local Table Setter Continue to follow Goal: bp and DM control Other chest pain Had stress test and ECHO in 2022 at [facility], no acute ischemic findings Strong risk factors for CAD Will refer to [facility], in [place], has seen Danial in the past Relevant Orders Ambulatory referral to Cardiology Other Visit Diagnoses Type 2 diabetes mellitus with diabetic neuropathy, 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 08-27-2024 Instructions Agusto Olmstead NP - 08/27/2024 2:20 PM EST Heart doctor: for chest pain, at [facility], they will call you Bladder/sling: urogynecologist, [facility] [place] they will call you, Blood pressure: keep taking metoprolol, add amlodipine at 5mg once day documented in this encounter [facility] 08-22-2024 Miscellaneous Notes Last Office Visit: 07/03/2024 Next Office Visit: 10/09/2024 Last Urine Drug Screen: Lab Results Component Value Date BENZOSCRN Negative 08/09/2023 OARRS appropriate documented in this encounter [facility] 08-22-2024 Telephone encounter Note Last Office Visit: 07/03/2024 Next Office Visit: 10/09/2024 Last Urine Drug Screen: Lab Results Component Value Date BENZOSCRN Negative 08/09/2023 OARRS appropriate [facility] 08-13-2024 History of Presen t illness Narrative Updating meds documented in this encounter [facility] 07-15-2024 Miscellaneous Notes Last Office Visit: 07/03/2024 Next Office Visit: 10/09/2024 Last Urine Drug Screen: Lab Results Component Value Date BENZOSCRN Negative 08/09/2023 OAR[facility] appropriate documented in this encounter [facility] 07-15-2024 Telephone encounter Note Last Office Visit: 07/03/2024 Next Office Visit: 10/09/2024 Last Urine Drug Screen: Lab Results Component Value Date BENZOSCRN Negative 08/09/2023 OARRS appropriate [facility] 07-03-2024 History of Presen t illness Narrative [facility] [address] [place] [address] Patient: Aislinn Wheeler Sex: female : 1960 Age: 64 y.o. 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 work injury. Patient reports she is [...] cart, cold/heat). Treatments tried: Tizanidine, Lyrica, Gabapentin, Ava, Elevation, NSAIDs x 2 (Ibuprofen, Aleve), Flexeril, BioFreeze, Immobilization w/min relief, Celebrex & compound cream w/no relief, Rt Stellate Ganglion NB w/mod relief. The treatment provided moderate relief. The effect of pain on patient's ADLS: Moderate Impairment. Past Medical History: Diagnosis Date Arthritis RHEUMATOID Arthritis OSTEOARTHRITIS Asthma At risk for UTI related to indwelling catheter Broken toes 08/2022 Bronchitis Cancer ([facility]) UTERINE Chronic kidney disease 2015 stage 3 per pt 04/05/23 COVID-19 virus infection 09/28/2021 Diabetes mellitus ([facility]) Fibromyalgia GERD (gastroesophageal reflux disease) History of degenerative disc disease Hypertension Joint pain Lupus ([facility]) Mitral valve prolapse Osteoarthritis Pneumonia released from hospital on 11/12/21 RSD (reflex sympathetic dystrophy) Stroke ([facility]) Past Surgical History: Procedure Laterality Date AMPUTATION OF REPLICATED TOES Left 06/2022 ANKLE SURGERY CATARACT EXTRACTION, BILATERAL Bilateral 03/22 and 04/13 CHOLECYSTECTOMY HYSTERECTOMY INJECTION BLOCK NERVE STELLATE GANGLION NECK Right 03/15/2024 Performed by Zackery Pedro MD at [facility] INJECTION BLOCK NERVE STELLATE GANGLION NECK Right 10/13/2023 Performed by Zackery Pedro MD at [facility] INJECTION BLOCK NERVE STELLATE GANGLION NECK Right 12/23/2022 Performed by Zackery Pedro MD at [facility] INJECTION BLOCK NERVE STELLATE GANGLION NECK Right 05/06/2022 Performed by Zackery Pedro MD at [facility] BLOCK NERVE STELLATE GANGLION NECK Right 10/15/2021 Performed by Zackery Pedro MD at [facility] INJECTION BLOCK STELLATE GANGLION N/A 02/17/2017 Performed by Zackery Pedro MD at [facility] STELLATE GANGLION NECK Right 06/18/2018 Performed by Zackery Pedro MD at [facility] STELLATE GANGLION NECK N/A 05/15/2017 Performed by Zackery Pedro MD at [facility] INJECTION BLOCK STELLATE GANGLION NECK Right Right 05/22/2020 Performed by Zackery Pedro MD at [facility] STELLATE GANGLION NECK Right N/A 10/04/2019 Performed by Zackery Perdo MD at [facility] INJECTION BLOCK STELLATE GANGLION NECK Right Right 05/10/2019 Performed by Zackery Pedro MD at [facility] INJECTION BLOCK STELLATE GANGLION NECK Right Right 12/31/2018 Performed by Zackery Pedro MD at [facility] INJECTION BLOCK STELLATE GANGLION NECK Right Right 10/09/2017 Performed by Zackery Pedro MD at [facility] KNEE SURGERY REMOVAL STIMULATOR SPINAL CORD N/A 12/29/2017 Performed by Zackery Pedro MD at [facility] SHOULDER SURGERY Allergies Allergen Reactions Latex [...] Resource Strain: Medium Risk (10/11/2023) Received from [facility] Healthcare, [facility] Overall Financial Resource Strain (CARDIA) Difficulty of Paying Living Expenses: Somewhat hard Food Insecurity: No Food Insecurity (07/03/2024) Hunger Screening Food Insecurity - Worry: Never True Food Insecurity - Inability: Never True Transportation Needs: No Transportation Needs (10/11/2023) Received from [facility] PRAPARE - Transportation Lack of Transportation (Medical): No Lack of Transportation (Non-Medical): No Physical Activity: Inactive (10/11/2023) Received from [facility] Exercise Vital Sign Days of Exercise per Week: 0 days Minutes of Exercise per Session: 0 min Stress: Stress Concern Present (10/11/2023) Received from [facility] [place] [facility] [employer] [facility] - Occupational Stress Questionnaire Feeling of Stress : Very much Social Connections: Socially Isolated (10/11/2023) Received from [facility] Social Connection and Isolation Panel [NHANES] Frequency of Communication with Friends and Family: More than three times a week Frequency of Social Gatherings with Friends and Family: More than three times a week Attends Yazdanism Services: Never Active Member of Clubs or Organizations: No Attends Club or Organization Meetings: Never Marital Status: Interpersonal Safety: Unknown (10/12/2023) Received from [facility] Environment Fear of Current or Ex-Partner: Not on file Emotionally Abused: Not on file Physically Abused: Not on file Sexually Abused: Not on file Physically or Sexually Abused: Not on file Housing Instability: Low Risk (10/11/2023) Received from [facility] Housing Stability Vital Sign Unable to [...] use Continue Lyrica 150 mg TID and Ava 7.5/325 mg TID PRN Proceed with Dr. [...] medication that requires intensive monitoring for toxicity Ava. Ava pill count completed at today's office visit. Dose: 7.5-325 x3 Daily Quantity Dispensed 90 Quantity Remaining 70 Fill date on prescription bottle 06/24/24 appropriate Patient educated to bring medication to every office visit. Ava and Lyrica was refilled at today's office [...] PA-C 07/03/24 1245 documented in this encounter [facility] 06-26-2024 Telephone encounter Note Called and [...] locally Cystatin C and CMP sent to [facility] ( ; fx [phone]) and asked her to go to lab [...] she wants to proceed with surgery Thanks [facility] Work Phone: 06-26-2024 Miscellaneous Notes Called and spoke to Aislinn Pulido Liam [...] locally Cystatin C and CMP sent to [facility] ( ; fx [phone]) and asked her to go to lab [...] with surgery Thanks documented in this encounter [facility] 06-11-2024 Miscellaneous Notes Last Office Visit: 04/24/2024 Next Office Visit: 06/26/2024 Last Urine Drug Screen: Lab Results Component Value Date BENZOSCRN Negative 08/09/2023 OARRS appropriate documented in this encounter [facility] 06-11-2024 Telephone encounter Note Last Office Visit: 04/24/2024 Next Office Visit: 06/26/2024 Last Urine Drug Screen: Lab Results Component Value Date BENZOSCRN Negative 08/09/2023 OARRS appropriate [facility] 06-11-2024 History of Presen t illness Narrative Associated Problem(s): Skin lesion of face Suspect to be AK Pt request referral to derm Associated Problem(s): Malignant neoplasm of cervix uteri, unspecified (CMS/HCC) Had hyst Associated Problem(s): Rheumatoid arthritis, unspecified ([facility]) Does not follow with Rheumatology Associated Problem(s): Type 2 diabetes mellitus with hyperglycemia, with long-term current use of insulin ([facility]) Will recheck A1c level Continue current insulin at this time Hx of non compliance with fu appts w specialist Associated Problem(s): Chronic kidney disease, stage 3b (HCC) ([facility]) Has to get labs for nephrology and fu appt with them Discussed with pt the importance of adequte blood pressure and blood sugar control to help slow the progression of CKD Associated Problem(s): Continuous leakage of urine Continue with urology Associated Problem(s): Primary hypertension ([facility]) Has not been taking both amlodipine and metoprolol We will start over with amlodipine at 10mg daily Fu in 2 weeks for blood pressure check Recheck in office 188/90 Associated Problem(s): RSD (reflex sympathetic dystrophy) Continue with pain mgmt Associated Problem(s): Type 2 diabetes mellitus with diabetic neuropathy, 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 She sees a microsystems engineer.Eye exam is not current. SUBJECTIVE: MEDICATIONS: Current [...] test strip 4 times daily use HYDROcodone-acetaminophen (Ava) 7.5-325 MG tablet 1 tablet, Oral, 3 [...] Diagnosis Date Amputation of left great toe ([facility]) Cervical cancer ([facility] 10/11/2023 had Hysterectomy Charcot's joint of foot, left 10/11/2023 Chronic kidney disease, stage III (moderate) ([facility]) ([facility]) 10/11/2023 Fatty liver 10/11/2023 History of hysterectomy 10/11/2023 Cervical cancer Hyperkalemia Hyponatremia Leakage of urine from ureter Lupus ([facility]) Memory impairment [...] of nail of digit of hand Osteoporosis ([facility]) 10/11/2023 Post-menopausal 10/11/2023 Rheumatoid arthritis ([facility]) 10/11/2023 RSD (reflex sympathetic dystrophy) 10/11/2023 Type 2 diabetes mellitus with diabetic neuropathy, 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 ([facility]) 10/11/2023 Visual [...] hyperglycemia, with long-term current use of insulin ([facility]/HCC) Will recheck A1c level Continue current insulin at this time Hx of non compliance with fu appts w specialist Relevant Orders Basic metabolic panel Hemoglobin A1c 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 ([facility]/HCC) IESHA (iron deficiency anemia) Primary hypertension ([facility]/HCC) Has not been taking both amlodipine and metoprolol We will start over with amlodipine at 10mg daily Fu in 2 weeks for blood pressure check Recheck in office 188/90 Relevant Medications amLODIPine (Norvasc) 10 MG tablet Type 2 diabetes mellitus with diabetic neuropathy, 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 ([facility]) Reports increase in neuropathy symptoms, is on lyrica at 150mg TID, also takes percocet for RSD Will trial addition of duloxetine at 20mg daily Fu in 4-6 weeks Relevant Medications DULoxetine (Cymbalta) [address] capsule RSD (reflex sympathetic dystrophy) Continue with pain mgmt Malignant neoplasm of cervix uteri, unspecified ([facility]/HCC) Rheumatoid arthritis, unspecified ([facility]) Does not follow with Rheumatology Continuous leakage of urine Continue with urology 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 Type 2 diabetes mellitus with diabetic chronic kidney disease ([facility]/HCC) Chronic kidney disease, stage 3b (HCC) ([facility]) Has to get labs for nephrology and fu appt with them Discussed with pt the importance of adequte blood pressure and blood sugar control to help slow the progression of CKD Hyperparathyroidism, unspecified ([facility]/HCC) Other Visit Diagnoses Essential (primary) hypertension ([facility]/HCC) - Primary documented in this encounter [facility] 06-10-2024 Note Received referral ag aiblessing with no C9 approval attached. Spoke with referring provider's office. They will send message to the referral's office to fax C9 approval. I provided my contact information and fax number. [facility] 05-09-2024 Note Reviewed pt's referr al. Pt is being referred for SCS trial consult with [employer], however, it states in the note that [...] do not schedule if pt calls back. [facility] 05-01-2024 History of Presen t illness Narrative Images from the original note were not included. [facility] UROLOGY NEW PATIENT [...] constipation Juanito Barnard MD Associate Staff [facility] Department of Urology I spent a total of 30 minutes on the date of the service which included preparing to see the patient, [id number] patient care, completing clinical documentation, obtaining and/or reviewing separately obtained history, performing a medically appropriate examination, counseling and educating the patient/family/caregiver, and ordering medications, tests, or procedures. >50% of time was devoted to patient counseling. documented in this encounter [facility] 05-01-2024 Note HNO ID: [id number] Author: JUANITO BARNARD MD Service: ? Author Type: Physician Type: Progress Notes Filed: 05/01/2024 12:12 Note Text: [facility] UROLOGY NEW PATIENT [...] normal e (more content not included)... [facility] 05-01-2024 Note Patient Outreach (UR OLMN) AISLINN WHEELER ([id number]) 1960 F Date Time Provider Department 05/01/24 [...] for genitourinary condition [Z13.89] Order(s):URINALYSIS, REFLEX MICROSCOPIC [[id number]] Order #: [id number]. #:[id number] Prescriptions as of 05/06/2024 - metoprolol succinate [...] without hematuria [N39.*08/31/2023 09/04/2023 Encounter Status:Closed by [employer], PRODUSER on 05/06/24 [facility] 04-16-2024 History of Presen t illness Narrative [...] test strip 4 times daily use HYDROcodone-acetaminophen (Ava) 7.5-325 MG tablet 1 tablet, Oral, 3 [...] Diagnosis Date Amputation of left great toe (CMS/HCC) Cervical cancer ([facility]/HCC) 10/11/2023 had Hysterectomy Charcot's joint of foot, left 10/11/2023 Chronic kidney disease, stage III (moderate) (HCC) (CMS/HCC) 10/11/2023 Fatty liver 10/11/2023 History of hysterectomy 10/11/2023 Cervical cancer Hyperkalemia Hyponatremia Leakage of urine from ureter Lupus (CMS/HCC) Memory impairment of gradual onset MOCA: on [...] of nail of digit of hand Osteoporosis ([facility]) 10/11/2023 Post-menopausal 10/11/2023 Rheumatoid arthritis ([facility]) 10/11/2023 RSD (reflex sympathetic dystrophy) 10/11/2023 Type 2 diabetes mellitus with diabetic neuropathy, unspecified whether longterm insulin use ([facility]) 10/11/2023 Visual [...] hyperglycemia, with long-term current use of insulin ([facility]) A1c is improving Stage 3a chronic kidney disease (HCC) ([facility]/HCC) Relevant Orders Ambulatory referral to Nephrology Malignant neoplasm of cervix uteri, unspecified (CMS/HCC) Had hyst Rheumatoid arthritis, unspecified ([facility]) Does not follow with Rheumatology Type 2 diabetes mellitus with diabetic chronic kidney disease (HCC) ([facility]) A1c is coming down Cont current meds Chronic kidney disease, stage 3b (HCC) (CMS/HCC) Will re refer to Nephrology Hyperparathyroidism, unspecified ([facility]/HCC) Relevant Orders Ambulatory referral to Nephrology Chronic cough - Primary Check xray Consider antihistamine and nasal steroids Will await the results Relevant Orders XR chest 2 views documented in this encounter [facility] 04-15-2024 Note HNO ID: [id number] Author: ?, ?, ? Service: ? Author Type: ? Type: Progress Notes Filed: 04/15/2024 07:29 Note Text: Incidental Lung Nodule Enrollment Outreach attempt: 3rd Attempt Outreach status: Complete Enrolled in Lung Nodule program: No Declined reason: Other Lung Nodule Program Location: [place] Two letter attempts, no response. Discharge letter sent. [facility] 04-15-2024 History of Presen t illness Narrative Incidental Lung Nodule Enrollment Outreach attempt: 3rd Attempt Outreach status: Complete Enrolled in Lung Nodule program: No Declined reason: Other Lung Nodule Program Location: [place] Two letter attempts, no response. Discharge letter sent. documented in this encounter [facility] 04-15-2024 Note Patient Outreach (PU LMMN) AISLINN WHEELER ([id number]) 1960 F Date Time Provider Department 04/15/24 CHIOMA DURÁN During your visit today, we recorded the following information about you: Chioma Durán 04/15/2024 7:29 AM Signed Incidental Lung Nodule Enrollment Outreach attempt: 3rd Attempt Outreach status: Complete Enrolled in Lung Nodule program: No Declined reason: Other Lung Nodule Program Location: [place] Two letter attempts, no response. Discharge letter [...] Status:Closed by CHIOMA DURÁN on 04/15/24 [facility] 04-09-2024 Note HNO ID: [id number] Author: CARMENZA NOLEN MD Service: ? Author [...] visit. Either the patient or their legal instruments sales representative has been informed of the risks and benefits of -- and alternatives to -- treatment through a remote evaluation and consents to proceed with the evaluation remotely. [facility] 04-09-2024 History of Presen t illness [...] visit. Either the patient or their legal instruments sales representative has been informed of the risks and benefits of -- and alternatives to -- treatment through a remote evaluation and consents to proceed with the evaluation remotely. documented in this encounter [facility] 04-08-2024 Note HNO ID: [id number] Author: ?, ?, ? Service: ? Author Type: ? Type: Progress Notes Filed: 04/08/2024 09:39 Note Text: Incidental Lung Nodule Enrollment Outreach attempt: 2nd Attempt Outreach status: Complete Enrolled in Lung Nodule program: Referred Lung Nodule outreach: Needs outreach Lung Nodule Program Location: [place] Two letter attempts [facility] 04-08-2024 History of Presen t illness Narrative Incidental Lung Nodule Enrollment Outreach attempt: 2nd Attempt Outreach status: Complete Enrolled in Lung Nodule program: Referred Lung Nodule outreach: Needs outreach Lung Nodule Program Location: [place] Two letter attempts documented in this encounter [facility] 04-08-2024 Note Patient Outreach (PU LMMN) AISLINN WHEELER ([id number]) 1960 F Date Time Provider Department 04/08/24 CHIOMA DURÁN During your visit today, we recorded the following information about you: Chioma Durán 04/08/2024 9:39 AM Signed Incidental Lung Nodule Enrollment Outreach attempt: 2nd Attempt Outreach status: Complete Enrolled in Lung Nodule program: Referred Lung Nodule outreach: Needs outreach Lung Nodule Program Location: [place] Two letter attempts Allergies As of Date: [...] Status:Closed by CHIOMA DURÁN on 04/08/24 [facility] 04-02-2024 Note HNO ID: [id number] Author: CARMENZA NOLEN MD Service: ? Author [...] Patient position - Sitting Radiologic Findings: A shipwright radiograph was obtained. The bony and soft tissue structures are within normal. 147 ccs contrast were used to fill the bladder. The bladder outline is irregular/trabeculated and abnormal shaped appearing. There is no ureteral reflux. During the voiding phase there is abnormal bladder neck opening and urethra is not visualized. Bladder emptying is not visualized Read by - Carmenza Nolen MD [facility] 03-29-2024 [facility] [...] allergy: No Females- Is patient : No Community Development Manager offered:Patient declines B/O UA: Yes, Negative [...] Pt states an understanding of instructions given. [facility] 03-29-2024 [facility] [...] allergy: No Females- Is patient : No Community Development Manager offered:Patient declines B/O UA: Yes, Negative [...] of instructions given. documented in this encounter [facility] 03-27-2024 Note HNO ID: [id number] Author: NURIA READ APRN.CNP Service: ? Author Type: Nurse Practitioner Type: Progress Notes Filed: 03/27/2024 14:36 Note Text: Incidental Lung Nodule Enrollment Outreach attempt: 1st Attempt Outreach status: Complete Enrolled in Lung Nodule program: Referred Lung Nodule outreach: Needs outreach Lung Nodule Program Location: [facility] [place] 03-27-2024 History of Presen t illness Narrative Incidental Lung Nodule Enrollment Outreach attempt: 1st Attempt Outreach status: Complete Enrolled in Lung Nodule program: Referred Lung Nodule outreach: Needs outreach Lung Nodule Program Location: [facility] [place] documented in this encounter [facility] 03-27-2024 Note Patient Outreach (PM M211) AISLINN WHEELER ([id number]) 1960 F Date Time Provider Department 03/27/24 NURIA READ [id number] During your visit today, we recorded the following information about you: Nuria Read APRN.CNP 03/27/2024 2:36 PM Signed Incidental Lung Nodule Enrollment Outreach attempt: 1st Attempt Outreach status: Complete Enrolled in Lung Nodule program: Referred Lung Nodule outreach: Needs outreach Lung Nodule Program Location: [facility] [place] Allergies As of Date: [...] Status:Closed by NURIA READ on 03/27/24 [facility] 03-26-2024 Instructions Carmenza Nolen MD [...] the test so you arrive at the [facility] with the urge to empty your [...] your bladder when you arrive at the [facility]. Speak with a nurse if you feel you must empty your bladder. If you are taking antibiotics for a urinary tract infection (UTI) or bladder infection, notify your physician's office immediately. We may reschedule your bladder test. Bring a list of all prescribed and pkwj-hpx-xrqvrio medications you are taking. If you should need assistance due to a language barrier or medical needs/condition, please notify the fire alarm inspector when making your appointment and one will be provided for you ([phone]). If you are taking overactive bladder medications [...] test is finished. documented in this encounter [facility] 03-26-2024 Note HNO ID: [id number] Author: CARMENZA NOLEN MD Service: ? Author Type: Physician Type: Progress Notes Filed: 03/26/2024 11:54 Note Text: [facility] [...] her bladder. Had bladder botox injections at [facility] about 3 mo ago with no [...] Assessed 03/26/2024 PHYSICAL EXAM: Patient declined a production hand General: No acute distress, well appearing : [...] concerns were addressed. Carmenza Nolen MD [facility] 03-26-2024 History of Presen t illness Narrative [facility] [...] her bladder. Had bladder botox injections at [facility] about 3 mo ago with no [...] Assessed 03/26/2024 PHYSICAL EXAM: Patient declined a production hand General: No acute distress, well appearing : [...] Via bladder scan. documented in this encounter [facility] 03-26-2024 Note HNO ID: [id number] Author: MARIA TERESA JOHNSON MA Service: ? Author Type: Trashman Type: Progress Notes Filed: 03/26/2024 11:54 Note Text: Pt voided upon arrival. PVR = 205 ml Via bladder scan. Pt was doing ISC, but was told she could stop. Pt instructed to give a urine specimen. 2ND Repeat PVR PVR = 135 ml Via bladder scan. [facility] 02-26-2024 Telephone encounter Note Pt LVM asking for her CT scan results. Noted in pt chart was an unread message from regarding the most recent CT scan. LVM for pt and let her know about MyChart message and provided number if pt has any further questions. [facility] 02-26-2024 Miscellaneous Notes Pt LVM asking for her CT scan results. Noted in pt chart was an unread message from regarding the most recent CT scan. LVM for pt and let her know about MyChart message and provided number if pt has any further questions. documented in this encounter [facility] 02-12-2024 Telephone encounter Note Patient LVM requesting results from 02/01/24 CT Urogram. Will update medical team [facility] 02-12-2024 Miscellaneous Notes Patient LVM requesting results from 6/13/24 CT Urogram. Will update medical team documented in this encounter [facility] 02-01-2024 History of Presen t illness [...] PATIENT PRESENTS WITH AN IMPLANTABLE OR ATTACHED DROP WIRE HANGER: No RADIOLOGY DEPARTMENT: CT; Exam(s) Completed: Urogram PERIPHERAL IV DATA: Site assessment: Clean,Dry and Intact, Site disposition Discontinued SIGNED BY: RT Michael(Raquel) February 01, 2024 2:50 PM documented in this encounter [facility] 02-01-2024 Note HNO ID: [id number] Author: PRERNA THORPE RT(R) Service: ? Author [...] PATIENT PRESENTS WITH AN IMPLANTABLE OR ATTACHED DROP WIRE HANGER: No RADIOLOGY DEPARTMENT: CT; Exam(s) Completed: Urogram PERIPHERAL IV DATA: Site assessment: Clean,Dry and Intact, Site disposition Discontinued SIGNED BY: RT Michael(Raquel) February 01, 2024 2:50 PM [facility] 02-01-2024 Note HNO ID: [id number] Author: HEIDY LINDA RN Service: Nursing Author [...] February 01, 2024 TIME: 2:50 PM [facility] 01-12-2024 Note HNO ID: [id number] Author: SANJANA CALLAWAY MA Service: ? Author Type: Trashman Type: Progress Notes Filed: 01/12/2024 14:43 Note Text: Post Void Residual done on patient with 211 cc residual volume remaining. notified. Sanjana Callaway MA [facility] 01-12-2024 History of Presen t illness Narrative Post Void Residual done on patient with 211 cc residual volume remaining. notified. Sanjana Callaway MA [facility] [...] urogram Will refer to Dr. Tamanna Ruiz APRN.MANAGER UTILIZATION MANAGEMENT Attending Note I have personally performed a [...] Past Histories independently gathered by the clinical geophysical support specialist and the remaining scribed note accurately describes my personal service to the patient. Dr. Taurus Ballard MD documented in this encounter [facility] 01-12-2024 Note HNO ID: [id number] Author: TAURUS BALLARD MD Service: ? Author Type: Physician Type: Progress Notes Filed: 01/12/2024 14:43 Note Text: [facility] [...] urogram Will refer to Dr. Tamanna Ruiz APRN.MANAGER UTILIZATION MANAGEMENT Attending Note I have personally performed a [...] MD Date: 01/12/2024 (more content not included)... [facility] 11-06-2023 Miscellaneous Notes Last Office Visit: 08/09/2024 Next Office Visit: 11/22/2023 Last Urine Drug Screen: Lab Results Component Value Date BENZOSCRN Negative 08/09/2023 OARRS appropriate [facility] Tele[facility] encounter Note Last Office Visit: 08/09/2024 Next Office Visit: 11/22/2023 Last Urine Drug Screen: Lab Results Component Value Date BENZOSCRN Negative 08/09/2023 OARRS appropriate [facility] 10-25-2023 Hospital Discharg e instructions Patient [...] including vitamins, herbs, eye drops, creams, and rbbn-qwo-neaelji medicines. Any problems you or family members [...] provider tells you to take them. Taking dica-qfn-pknfabv medicines, vitamins, herbs, and supplements. General instructions [...] Follow these instructions at home: Medicines Take wlnf-job-ccnmgws and prescription medicines only as told by [...] provider. Document Revised: 02/11/2022 Document Reviewed: 02/11/2022 WriteLatex Patient Education 2022 [employer]ent. Follow Up Care 09/26/2023 08:43:34 With:HEIDY ARNOLD PA-C, URL Address: [address] [place] [address] When: Unknown [facility] [place] 10-10-2023 Miscellaneous Notes Last OV: 08/12/23 Next OV: proc 10/13/23 OARRS appropriate: yes Last UDS: 08/12/23 [facility]acy[facility] [place] documented in this encounter [facility] 10-10-2023 Telephone encounter Note Last OV: 08/12/23 Next OV: proc 10/13/23 OARRS appropriate: yes Last UDS: 08/12/23 [facility]acy[facility] [place] [facility] 09-27-2023 Miscellaneous Notes Summary: [facility] IRB# [id number] IRB# [id number]: Vascular events in patients undergoing same-day nonCardiac surgery - [facility] PI: Mary Rojas MD, LETY, BARNEY. Outcomes Research Department. Anesthesia Crook. [facility]. Aislinn Wheeler was unavailable at the listed phone number. We will attempt to contact the patient through Cosyforyou message. Drew Esqueda, Research Coordinator Research Coordinator documented in this encounter [facility] 09-26-2023 Miscellaneous Notes Summary: [facility] IRB# [id number] IRB# [id number]: Vascular events in patients undergoing same-day nonCardiac surgery - [place] PI: Mary Rojas MD, LETY, BARNEY. Outcomes Research Department. Anesthesia Crook. [facility]. Aislinn Wheeler was unavailable at the listed phone number. We will attempt to contact the patient again at a later date. Drew Esqueda Research Coordinator Research Coordinator documented in this encounter [facility] 09-07-2023 Miscellaneous Notes Last OV: 08/09/2023 Next OV: --- OARRS appropriate: yes Last UDS: 08/09/2023 [facility]acy[facility] [place] Patient left phone message requesting refill on Ava and Lyrica. Lyrica prescription signed 08/11/2023 has 1 refill. Per OARRS patient last filled Lyrica 08/11/2023. Ava prescription pended for review and signature. Patient's fill dated adjusted from 09/14/23 to 09/17/23 due to recent 3 day hospitalization. documented in this encounter [facility] 09-07-2023 Telephone encounter Note Last OV: 08/09/2023 Next OV: --- OARRS appropriate: yes Last UDS: 08/09/2023 [facility]acy[facility] [place] Patient left phone message requesting refill on Ava and Lyrica. Lyrica prescription signed 08/11/2023 has 1 refill. Per OARRS patient last filled Lyrica 08/11/2023. Ava prescription pended for review and signature. [facility] 09-07-2023 Telephone encounter Note Patient's fill dated adjusted from 09/14/23 to 09/17/23 due to recent 3 day hospitalization. [facility] 09-03-2023 Note HNO ID: [id number] Author: KRYSTA SULLIVAN MD Service: Hospital Medicine [...] -- 08/31/23 1115 activity - mobilize patient (ma,ga) VTE Prophylaxis: VTE prophylaxis appropriate SIGNATURE: Krysta Sullivan MD PATIENT NAME: Aislinn Wheeler DATE: September 03, 2023 TIME: 6:31 PM [facility] 09-02-2023 Note HNO ID: [id number] Author: KRYSTA SULLIVAN MD Service: Hospital Medicine [...] -- 08/31/23 1115 activity - mobilize patient (ma,ga) VTE Prophylaxis: VTE prophylaxis appropriate SIGNATURE: Krysta Sullivan MD PATIENT NAME: Aislinn Wheeler DATE: September 02, 2023 TIME: 2:31 PM [facility] 09-02-2023 Note HNO ID: [id number] Author: NOTE, INTERFACE, ? Service: ? Author Type: ? Type: Progress Notes Filed: 09/02/2023 02:20 Note Text: Epic Scheduled Downtime: 09/02/2023 1:00:00 AM to 09/02/2023 2:04:22 AM [facility] 09-01-2023 Note HNO ID: [id number] Author: MIKE LOUIS RN Service: Care Management Author Type: Registered Nurse Type: Care Mgt Progress Note Filed: 09/01/2023 15:30 Note Text: CARE MANAGEMENT WEEKEND PLANNING NOTE NO WEEKEND DISCHARGE Disposition: TBD Anticipated Discharge Date: No weekend DC anticipated Weekend Roads And Parking Lots Sweeper Operator Pager #: Girish Rogers [phone] ANATOLIY UTI - repeat UA sent - bc pending Waiting on podiatry consult SIGNATURE: Mike Louis RN PATIENT NAME: Aislinn Wheeler DATE: September 01, 2023 TIME: 3:28 PM PAGER/CONTACT #: [phone] [facility] 09-01-2023 Note HNO ID: [id number] Author: ANTHONY BARROW MD Service: Hospital Medicine [...] -- 08/31/23 1115 activity - mobilize patient (ma,oh) VTE Prophylaxis: VTE prophylaxis appropriate SIGNATURE: Anthony Barrow MD PATIENT NAME: Aislinn Wheeler DATE: September 01, 2023 TIME: 11:36 AM [facility] 08-31-2023 History of Past i llness Narrative [...] of this encounter (statuses as of 09/27/2023) [facility]01-[facility]-2024 History of Past illness Narrative* Problem Noted Date Diagnosed Date Resolved Date Fever 08/31/2023 09/04/2023 Urinary tract infection without hematuria 08/31/2023 09/04/2023 Acute cystitis without hematuria 01/18/2021 01/21/2021 Pyelonephritis 01/17/2021 01/21/2021 Sepsis 01/17/2021 01/21/2021 Hyponatremia 01/17/2021 01/21/2021 Hyperkalemia 01/17/2021 09/04/2023 ANATOLIY (acute kidney injury) 01/17/2021 Hydronephrosis due to obstruction of ureter 01/17/2021 01/21/2021 documented as of this encounter (statuses as of 09/28/2023) [facility]01-11-2024 History of Past illness Narrative* Problem Noted Date Diagnosed Date Resolved Date Fever 08/31/2023 09/04/2023 Urinary tract infection without hematuria 08/31/2023 09/04/2023 Acute cystitis without hematuria 01/18/2021 01/21/2021 Pyelonephritis 01/17/2021 01/21/2021 Sepsis 01/17/2021 01/21/2021 Hyponatremia 01/17/2021 01/21/2021 Hyperkalemia 01/17/2021 09/04/2023 ANATOLIY (acute kidney injury) 01/17/2021 Hydronephrosis due to obstruction of ureter 01/17/2021 01/21/2021 documented as of this encounter (statuses as of 09/28/2023) [facility]01-11-2024 NoteHNO ID: [id number] Author: TIN QUIÑONEZ LSW Service: Care Management Author Type: Travel Consultant Type: Care Mgt Initial Assessment Filed: 08/31/2023 [...] Determined Advance Directives Current Advance Directive: None Hop Farmer Attempted to Assist with AD Completion: Yes Action: Education Provided Current Living Arrangements and Support Lives with: Family members, Children Type of Residence: Private Residence (House) Support: Family members How do you manage to accomplish the following: Independent: Ambulation;Bathe/Shower;Dress;Meals/Meal Prep;Going to the bathroom;Medication Management;Transportation to appointments/community Current Services/Equipment Current Post-Acute Service(s): None Discharge Planning Patient Goal(s): General wellness [place] Explained: [place] Given: No Reason Not Given: [...] with pt at bedside. Pt lives in [place] with her grandchildren (18, 17, and [...] 31, 2023 TIME: 1:42 PM CONTACT #: [id number] Evaluation note* Encounter Date Diagnosis Assessment Notes Treatment Notes Treatment Clinical Notes Jun, Vitamin B12 deficiency (ICD-10 - E53.8) 5 O'Clock Records Other 11-03-2023 NoteHNO ID: [id number] Author: Lakisha Kaye Service: ? Author Type: ? Type: Plan of Care Filed: 06/26/2023 9:53 AM Note Text: PHARMACY BEDSIDE DELIVERY SERVICE Patient Name: Aislinn Wheeler The marked outpatient medications were Filled at: [place] and delivered to the patient's bedside to [facility] Medication List START taking these [...] your Primary Care Provider. Lakisha Kaye PAGER: [phone] June 26, 2023 9:52 [facility]11-03-2023 Miscellaneous Notes* Telephone Encounter - Heidy Garcia RN - 06/23/2023 9:03 AM EDT Patient had left robotic partial nephrectomy by Dr. Ballard on 06/22/2023 Will call for surgical follow up once discharged [facility] NoteHNO ID: [id number] Author: Taurus Ballard MD Service: Urology Author Type: Physician Type: Progress Notes Filed: 06/23/2023 1:37 PM Note Text: [facility] UROLOGY PROGRESS NOTE Name: Aislinn Wheeler Bed: [id number] Date: June 23, 2023 [facility] Service Pager: [phone] ASSESSMENT AND PLAN Aislinn Wheeler is a [...] De La Fuente MD Urology Resident [facility] Pager [phone] SUBJECTIVE -c/o pain, had a BM, no [...] Input and Output Date 06/22/23699 - 06/23/23 0659 06/23/23 07 - 06/24/23 0659 Shift 9647-5387 5994-6251 0326-1905 24 Hour Total 4175-2214 8862-8502 8216-6571 24 Hour Total INTAKE IV 1600 1600 Volume (mL) (lactated ringers iv infusion) 1000 1000 Volume (mL) (lactated ringers iv infusion) 600 600 Shift Total 1600 1600 OUTPUT Urine 300 864 876 9584 OR Urine Output 300 300 Output ( Indwelling Urinary Catheter 06/22/23 1130 Chaves 16 Fr) 122 787 3342 Tubes 20 40 60 Drain/Tube Output (Drain/Tube 06/22/23 1333 Lex Vega Right Lower Quadrant Abdomen Drain #1) 20 40 60 # of BMs Number of BMs 1 x 1 x Blood 50 50 Estimated Blood loss 50 50 Shift Total 350 637 882 6274 Weight (kg) 59 59 59 59 59 [...] We will call with pathology. Taurus Ballard MDVibra Hospital Of [facility] MassachusettsGredvlit76-22-7630 NoteHNO ID: [id number] Author: Linda NicholsonREY Service: Nursing Author Type: Registered Nurse Type: Nursing Progress Note Filed: 06/22/2023 2:15 PM Note Text: surgical dressing: surgical glue, [facility]11-02-2023 NoteHNO ID: [id number] Author: Lola Be APRN.QUIRINO Service: ? Author Type: Nurse Energy Conservation Engineer Type: Anesthesia Procedure Notes Filed: 06/22/2023 12:24 PM Note Text: ANESTHESIOLOGY PROCEDURE NOTE Airway General Information Procedure Start Time/Medication Administration: 06/22/2023 11:22 AM Patient location during procedure: OR Patient identity confirmed: arm band, care paper steamer and patient Staffing SENIOR QUALITY MANAGER: Lola Be APRN.SENIOR QUALITY MANAGER Performed by: SENIOR QUALITY MANAGER Indications and Patient Condition Indications for airway [...] insertion, baseline dentition intact SIGNATURE: Lola Be APRN.SENIOR QUALITY MANAGER PATIENT NAME: Aislinn Wheeler DATE: June 22, 2023 TIME: 12:24 PM CSN: [id number] Miscellaneous Notes* Telephone Encounter - Vonnie Wilder RN - 06/15/2023 11:24 AM EDT Attempted to call patient for pre op instructions.mailbox is full and unable to LVM. Will try again. [facility] Evaluation note* Encounter Date Diagnosis Assessment [...] hyperglycemia, or diabetes medication issues. 6. Prescriptions: dexNodePrime g6 transmitters/sensor s sent to DM. 7. [...] (ICD-10 - Z68.25) May, Other see above 5 O'Clock Records Other 10-02-2023 Note [id number]#1.00CD:[address] [place] [address] 05-22-2023 NoteCystoscopy with Botox injection ? Voiding [...] if you have a fever over 100 degrees.[facility] 05-22-2023 Hospital Discharge instructions Patient Education [...] Up Care 05/03/2023 10:48:47 With:Lisa Porras Address: [address] [place] [phone] [employer] (1) [facility] Juancarlos [place], [address] [address] [phone] Business (1) When: Unknown Comments:Office to schedule follow up in 1 month with [facility]09-28-2023 Evaluation note* Encounter Date Diagnosis Assessment Notes [...] 24.0-24.9, adult (ICD-10 - Z68.24) see above 5 O'Clock Records Other [id number] Miscellaneous Notes* Telephone Encounter - Agusto Faulkner - 05/18/2023 12:57 PM EDT Consult notes sent back to Dr. Lisa Porras , phone [phone]. From Dr. Ballard office. [facility]23 NoteHNO ID: [id number] Author: Taurus Ballard MD Service: ? Author [...] 1.92 01/19/[address] scan (outside records) [facility] 09/28/21 IMPRESSION: Since the prior CT [...] threatening or minor complicatio (more content not included)...[facility] MassachusettsMqrcdwdg37-74-0545 Hospital Discharge instructions Patient Education 02/22/2023 09:35:15 [...] provider. Document Revised: 12/16/2021 Document Reviewed: 12/16/2021 WriteLatex Patient Education 2022 Blazent. Follow Up Care 09/13/2022 14:59:43 With:Vern TAVERAS, EMELINA Hernandez, URO Address: When:Within 2 Month(s) Comments:w/ PVR [facility] 05-09-2023 Evaluation note* Encounter Date Diagnosis Assessment [...] N28.1) Patient follows with urology clinic in [facility] for enlarging left renal cyst. December, [...] her blood pressure persistently more than 150/90. 5 O'Clock Records Other 02-01-2023 Hospital Discharge instructions Patient Education [...] 07/24/2013 Document Revised: 03/27/2019 Document Reviewed: 03/27/2019 WriteLatex Patient Education 2020 [employer]. Follow Up Care 09/14/2022 14:44:34 With:Vern TAVERAS, Lisa Montiel URBroderick, URO Address: When: Unknown [facility] 01-24-2023 Hospital Discharge instructions Patient Education 09/13/2022 [...] fried and sweet foods. General instructions Take ntic-qlt-jvlvgxl and prescription medicines only as told by [...] 06/03/2010 Document Revised: 11/28/2019 Document Reviewed: 08/23/2018 WriteLatex Patient Education 2020 Blazent. Follow Up Care 08/24/2022 11:21:49 With:HEIDY ARNOLD PA-C, URL Address: [address] [place] [address] When: Unknown [facility] 06-09-2021 Miscellaneous Notes* Telephone Encounter - Barbara Talbot - 01/27/2021 10:30 AM EDT Scheduled 02/15 * Telephone Encounter - Barb Silva MD - 01/27/2021 9:40 AM EDT Please schedule hospital follow up with Guy Overton Deitzer, or Sasha. Virtual ok documented in [facility]06[facility]21 NoteHNO ID: [id number] Author: Griselda Diaz ([email or web address]) Service: ? Author Type: ? Type: Plan [...] Generic drug: insulin detemir U-100 Griselda Diaz ([email or web address]) PAGER: paris January 21, 2021 4:27 [facility] CenterMtlctgma46-53-0650 NoteHNO ID: [id number] Author: ELIZABETH Kothari Service: Care Management Author Type: Travel Consultant Type: Care Mgt Progress Note Filed: 01/21/2021 1:39 PM Note Text: CARE MANAGEMENT DISCHARGE NOTE SERVICE DATE: 01/21/2021 SERVICE TIME: 1300 LOS: 4 days Admission Date: 01/17/2021 DISCHARGE ARRANGEMENT (list agency and phone number) Discharge Arrangement: Home;Home Prison Care: Nursing;PT;OT [facility] ASSESSMENT: Maira Davila to transport home [phone] HANDOFF COMMUNICATION: Handoff to: Other Caregiver;Primary Care Physician Primary Care Physician Name/Phone: Madeline Jordan PA-C Other Caregiver Name/Phone: [facility] TRANSPORTATION ARRANGEMENTS: Transportation Arrangements: Car (Family to transport) ADDITIONAL CONTACT RESOURCES: [facility] not able to accept. [place] provided and sent to first available to accept to her service area. [facility] willing to accept. Pt concerned she does not have Xochitl ([employer]-Shee) Gold minesre part B to cover services. I spoke with grdtr who plans on paying for services out of pocket until pt's insurance becomes active February 18, 2021 Discharge Information Row Name ED to Hosp-Admission (Current) from 01/17/[address] [facility] Fax# Care to start after your appointment with internal medicine on 01/25/2021 for additional orders. The agency will be contacting you to set this up [facility] [employer] Equipment Needed Walker was delivered to hospital room prior to discharge [facility] willing to accept pending pt has her initial appointment with internal medicine on 01/25/2021. Both pt and maira Davila were advised. Dr Hansen also provided script for outpt therapy should home care fall through or cost too high for marycarmenr to cover. Lola to call [facility] [place] to discuss further. Walker was delivered to room and prescription was sent to [facility]. Lola to upper trimmer. No other homegoing needs. SIGNATURE: ELIZABETH Kothari PATIENT NAME: Aislinn Wheeler DATE: January 21, 2021 TIME: 1:32 PM PAGER/CONTACT #: [phone] [id number] NoteHNO ID: [id number] Author: Derik Daniel Service: Care Management Author Type: Resource Center Building And Construction Manager Type: Care Mgt Progress Note Filed: 01/21/2021 11:24 AM Note Text: CARE MANAGEMENT PROGRESS NOTE SERVICE DATE: 01/21/2021 SERVICE TIME: 950 LOS: 4 days IMM Follow Up Copy Given: Yes Copy given to:: Patient Method: In Person SIGNATURE: Derik Daniel PATIENT NAME: Aislinn Wheeler DATE: January 21, 2021 TIME: 11:23 AM PAGER/CONTACT #: [phone] [id number] NoteHNO ID: [id number] Author: Ailyn Salsa RN Service: Care Management Author Type: Registered Nurse Type: Care Mgt Progress Note Filed: 01/20/2021 3:29 PM Note Text: CARE MANAGEMENT PROGRESS NOTE SERVICE DATE: 01/20/2021 SERVICE TIME: 3:09 PM LOS: 3 days [place] Given: Yes Level of Care Discussed: Home Care Financial Disclosure Provided: No Financial Disclosure Comments: [facility] does not service area Provider List: [...] sent. Patient does not have a PCP. [facility] can provide a visiting provider [...] 20, 2021 TIME: 3:09 PM PAGER/CONTACT #: [phone] [id number] NoteHNO ID: [id number] Author: Inna Hansen DO Service: Hospital Medicine Author Type: Physician Type: Progress Notes Filed: 01/20/2021 12:37 PM Note Text: DEPARTMENT OF HOSPITAL MEDICINE PROGRESS NOTE SERVICE DATE: 01/20/2021 SERVICE TIME: 10:37 AM Hospital Medicine/Primary Attending: Inna Hansen DO NIGHT AND WEEKEND COVERAGE: DELMY COVERAGE: Days: [phone], please contact via [employer] Nights: [phone], please page [facility] Hospitalist Night coverage pager [phone] Subjective INTERVAL HPI: nausea and vomiting this [...] Non-Pharmacologic VTE Prophylaxis/Anticoagulants 01/17/212214 pneumatic compression stockings ([place], [place]) 01/17/212214 activity - mobilize patient ([place]) VTE Prophylaxis: VTE prophylaxis appropriate Disposition: D Inna Hansen DO January 20, 2021 10:39 [facility] HospitalVigneemr40-70-1295 NoteHNO ID: [id number] Author: Benjamin Bernal MD Service: Urology Author [...] Wendy Bernal MD January 19, 2021 4:12 [facility] CenterIzscngnh23-96-0525 NoteHNO ID: [id number] Author: Shelby Lucero PharmD Service: Pharmacy Author Type: Pharmacist Type: Plan of Care Filed: 01/19/2021 11:02 AM Note Text: PHARMACY MEDICATION REVIEW Patient Name: Aislinn Wheeler : 1960 The following medications were updated within the PROPERTY DAMAGE CLAIMS ADJUSTOR medication list: Medications ADDED to PROPERTY DAMAGE CLAIMS ADJUSTOR medication list ? Albuterol HFA (replaced nebs) ? Levemir (replaced Lantus) Medications CHANGED on PROPERTY DAMAGE CLAIMS ADJUSTOR medication list ? Lyrica (added instructions) ? Symbicort (added instructions) Medications REMOVED from PROPERTY DAMAGE CLAIMS ADJUSTOR medication list ? Diltiazem ? Cymbalta ? [...] nothing too big . Call placed to [facility] pharmacy to clarify prescribed dose of insulin, and the only prescription for insulin [facility] has on file is for Relion 70/30 inject 25 units BID. [facility] pharmacist states this was prescribed 02/19/2020 but never picked up. The below information represents the best possible medication history: Yes Medication history completed by: Pharmacist: Shelby Lucero PharmD Source of history: Patient: Reliability of source: Appears reliable, clearly identified: Medication name and Pharmacy records: [id number], [facility] pharmacy (phone call) Medication nonadherence identified: Unable to assess - it is clear the patient is noncompliant with her medications (admits she has been off her meds, no insulin fills at [facility] despite patient report), but at this time unable to assess reason for nonadherence. Reconciliation completed: Yes All PROPERTY DAMAGE CLAIMS ADJUSTOR medications addressed by LIP and Medication reconciliation completed by: Shelby Lucero PharmD Medications with dose or frequency intentionally adjusted at admission: ? Ava modified to 5/325 mg q6h PRN New medications at admission: ? Ceftriaxone Note patient ordered insulin regimen (Lantus 15 units QHS + sliding scale Humalog) and based on blood glucose readings, this is appropriate Patient interested in Bedside Delivery Services or using [facility] OP Pharmacy at discharge? Unable to assess Preferred outpatient pharmacy: [facility] [place] [address] - [address] - [phone] Allergies: Latex Rash Comment:Added based on information [...] as instructed twice daily. Shelby Lucero, PharmD 01/19/2021[facility] HospitalsWlymrekt45-43-8165 NoteHNO ID: [id number] Author: Inna Hansen DO Service: Hospital Medicine Author Type: Physician Type: Progress Notes Filed: 01/19/2021 2:24 PM Note Text: DEPARTMENT OF HOSPITAL MEDICINE PROGRESS NOTE SERVICE DATE: 01/19/2021 SERVICE TIME: 9:30 AM Hospital Medicine/Primary Attending: Inna Hansen DO NIGHT AND WEEKEND COVERAGE: DELMY COVERAGE: Days: [phone], please contact via [employer] Nights: [phone], please page CC Hospitalist Night coverage pager [phone] Subjective INTERVAL HPI: no overnight events. Denies [...] Non-Pharmacologic VTE Prophylaxis/Anticoagulants 01/17/212214 pneumatic compression stockings ([place]) 01/17/212214 activity - mobilize patient ([place]) VTE Prophylaxis: VTE prophylaxis appropriate Disposition: Home Discussed with granddaughter Lola by phone with patient's permission. Inna Hansen DO January 19, 2021 9:33 [id number] History of Past illness Narrative* Problem Noted Date Resolved Date Acute cystitis without hematuria 01/18/2021 01/21/2021 Pyelonephritis 01/17/2021 01/21/2021 Sepsis 01/17/2021 01/21/2021 Hyponatremia 01/17/2021 01/21/2021 Hyperkalemia 01/17/2021 01/21/2021 Hydronephrosis due to obstruction of ureter 12/2101/21/2021 documented as of this encounter (statuses as of 01/27/2021) [facility]05-[facility]21 History of Past illness Narrative* Problem Noted Date Diagnosed Date Resolved Date Acute cystitis without hematuria 01/18/2021 01/21/2021 Pyelonephritis 01/17/2021 01/21/2021 Sepsis 01/17/2021 01/21/2021 Hyponatremia 01/17/2021 01/21/2021 Hyperkalemia 01/17/2021 01/21/2021 Hydronephrosis due to obstruction of ureter 01/17/2021 01/21/2021 documented as of this encounter (statuses as of 06/09/2023) [facility]21 History of Past illness Narrative* Problem Noted Date Diagnosed Date Resolved Date Acute cystitis without hematuria 01/18/2021 01/21/2021 Pyelonephritis 01/17/2021 01/21/2021 Sepsis 01/17/2021 01/21/2021 Hyponatremia 01/17/2021 01/21/2021 Hyperkalemia 01/17/2021 01/21/2021 Hydronephrosis due to obstruction of ureter 01/17/2021 01/21/2021 documented as of this encounter (statuses as of 06/15/2023) [facility]21 History of Past illness Narrative* Problem Noted Date Diagnosed Date Resolved Date Acute cystitis without hematuria 01/18/2021 01/21/2021 Pyelonephritis 01/17/2021 01/21/2021 Sepsis 01/17/2021 01/21/2021 Hyponatremia 01/17/2021 01/21/2021 Hyperkalemia 01/17/2021 01/21/2021 Hydronephrosis due to obstruction of ureter 01/17/2021 01/21/2021 documented as of this encounter (statuses as of 06/19/2023) [facility] History of Past illness Narrative* Problem Noted Date Diagnosed Date Resolved Date Acute cystitis without hematuria 01/18/2021 01/21/2021 Pyelonephritis 01/17/2021 01/21/2021 Sepsis 01/17/2021 01/21/2021 Hyponatremia 01/17/2021 01/21/2021 Hyperkalemia 01/17/2021 01/21/2021 Hydronephrosis due to obstruction of ureter 01/17/2021 01/21/2021 documented as of this encounter (statuses as of 06/23/2023) [facility] History of Past illness Narrative* Problem Noted Date Diagnosed Date Resolved Date Acute cystitis without hematuria 01/18/2021 01/21/2021 Pyelonephritis 01/17/2021 01/21/2021 Sepsis 01/17/2021 01/21/2021 Hyponatremia 01/17/2021 01/21/2021 Hyperkalemia 01/17/2021 01/21/2021 Hydronephrosis due to obstruction of ureter 01/17/2021 01/21/2021 documented as of this encounter (statuses as of 07/05/2023) [facility]05-31-2021 NoteHNO ID: [id number] Author: Inna Hansen DO Service: Hospital Medicine Author Type: Physician Type: Progress Notes Filed: 01/18/2021 4:10 PM Note Text: DEPARTMENT OF HOSPITAL MEDICINE PROGRESS NOTE SERVICE DATE: 01/18/2021 SERVICE TIME: 8:57 AM Hospital Medicine/Primary Attending: Inna Hansen DO NIGHT AND WEEKEND COVERAGE: DELMY COVERAGE: : [phone], please contact via [employer] Nights: [phone], please page CC Hospitalist Night coverage pager [phone] Subjective INTERVAL HPI: no overnight events. Denies [...] Non-Pharmacologic VTE Prophylaxis/Anticoagulants 01/17/212214 pneumatic compression stockings ([place], [place]) 01/17/212214 activity - mobilize patient ([place]) VTE Prophylaxis: VTE prophylaxis appropriate Disposition: Home SIGNATURE: Inna Hansen DO PATIENT NAME: Aislinn Wheeler DATE: January 18, 2021 TIME: 8:57 [facility]Fwlspedz10-45-1820 NoteHNO ID: [id number] Author: Taurus Ballard MD Service: Urology Author [...] cause of her urinary retention. [facility]aurus Ballard [facility] [id number] NoteHNO ID: [id number] Author: RT Dayanara(R) Service: Radiology Author Type: Car Repairer Apprentice Type: Progress Notes Filed: 01/17/2021 8:04 PM [...] BY: RT Dayanara(Raquel) January 17, 2021 8:03 [facility] [id number] NoteHNO ID: [id number] Author: RT Dayanara(Raquel) Service: Radiology Author Type: Car Repairer Apprentice Type: Progress Notes Filed: 01/17/2021 5:30 PM [...] Antoinette Dailey RT(R) January 17, 2021 5:30 [facility] CenterXmntneav29-39-2299 NoteHNO ID: [id number] Author: Guy Rogers RT(R) Service: Radiology Author Type: Car Repairer Apprentice Type: Progress Notes Filed: 01/17/2021 4:23 PM [...] Workman RT (R) January 17, 2021 4:22 [facility] CenterHaarovrb03-97-2596 NoteHNO ID: [id number] Author: Wendy Rainey, CT Service: ? Author Type: Clinical Car Repairer Apprentice Type: Progress Notes Filed: 01/17/2021 4:19 PM [...] BY: AHSAN Dozier January 17, 2021 4:19 [facility] Future Appointments Appointment Date:12/13/2022 03:00:00 PM Scheduled Provider:HEIDY ARNOLD PA-C Location:[facility] Appointment Type:URO Office Visit [facility] evaluation + Plan note Future Appointments Appointment Date:10/26/2022 10:00:00 AM Scheduled Provider:Lisa Porras MD Location:[facility] Appointment Type:URO Office Visit Appointment Date:12/13/2022 03:00:00 PM Scheduled Provider:HEIDY ARNOLD PA-C Location:[facility] Appointment Type:URO Office Visit [facility] evaluation + Plan note Future Appointments Appointment Date:05/03/2023 10:00:00 AM Scheduled Provider:Lisa Porras MD Location:[facility] Appointment Type:URO Office Visit [facility] evaluation + Plan note Future Appointments Appointment Date:05/03/2023 10:00:00 AM Scheduled Provider:Lisa Porras MD Location:[facility] Appointment Type:URO Office Visit Diagnostic Tests Pending * Urine [facility] Future Appointments Appointment Date:05/15/2023 12:30:00 PM Scheduled Provider: Location:[facility] Appointment Type:Urology CALL PAT FT Appointment Date:05/22/2023 10:30:00 AM Scheduled Provider: Location:[facility] Appointment Type:Urology FT Diagnostic Tests Pending * Urine Culture [facility]11/23 [facility] Future Appointments Appointment Date:06/28/2023 10:45:00 AM Scheduled Provider:Lisa Porras MD Location:[facility] Appointment Type:URO [facility] Future Appointments Appointment Date:06/28/2023 10:45:00 AM Scheduled Provider:Lisa Porras MD Location:[facility] Appointment Type:URO Office Visit Diagnostic Tests Pending * Urine Culture [facility]08/23 [facility] Future Appointments Appointment Date:07/18/2023 11:20:00 AM Scheduled Provider:HEIDY ARNOLD PA-C Location:[facility] Appointment Type:URO Office Visit [facility] evaluation + Plan note Future Appointments Appointment Date:10/10/2023 11:40:00 AM Scheduled Provider:HEIDY ARNOLD PA-C Location:[facility] Appointment Type:URO Office Visit [facility] evaluation noteNo [facility] [employer] Other Evaluation note* Diagnosis Kidney cyst, acquired- Primary Acquired cyst of kidney [facility] Diagnosis Reflex sympathetic dystrophy of right upper extremity [facility] assessment information [facility] Work Phone: Evaluation note* Diagnosis Reflex sympathetic dystrophy of right upper extremity Complex regional pain syndrome type 1 of right upper extremity [facility] Diagnosis Reflex sympathetic dystrophy of right upper extremity Complex regional pain syndrome type 1 of right upper extremity [facility]* Diagnosis Other hydronephrosis- Primary Screening for genitourinary condition Screening for other and unspecified genitourinary condition documented [facility]* Diagnosis Retention of urine- Primary Retention of urine, unspecified Screening for genitourinary condition Screening for other and unspecified genitourinary condition Type 2 diabetes mellitus with hyperglycemia, with long-term current use of insulin (HCC) BURKE (stress urinary incontinence, female) Female stress incontinence documented [facility]* Diagnosis Lung nodule- Primary Solitary pulmonary nodule documented [facility]* Diagnosis Stress incontinence- Primary Female stress incontinence Dysfunctional voiding of urine Unspecified disorder of urethra and urinary tract documented [facility]* Diagnosis Preop examination- Primary Preoperative [...] Female stress incontinence [facility]* Diagnosis Preop examination- Primary Preoperative [...] (HCC) Other hydronephrosis documented [facility]* Diagnosis Preop examination- Primary Preoperative [...] Low bladder compliance [facility] Diagnosis Preop examination- Primary Preoperative [...] unspecified genitourinary condition documented [facility]* Diagnosis Onset Date Resolution Status Anemia of renal disease acut e B12 deficiency acute CKD stage 3b, GFR 30-44 ml/min acute 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 acute Hyperkalemia acute Hyperparathyroidism acute Hypertensive nephropathy acu te Renal cyst acute [facility] Work Phone: Evaluation note* Diagnosis Encounter for subsequent annual wellness visit (AWV) in Medicare patient- Primary Age related osteoporosis, unspecified pathological fracture presence ([facility]) Stage 3 chronic kidney disease, unspecified whether stage 3a or 3b CKD (HCC) ([facility]) Primary hypertension ([facility]) Unspecified essential hypertension Type 2 diabetes mellitus with hyperglycemia, with long-term current use of insulin ([facility]) Vitamin D deficiency Type 2 diabetes mellitus with diabetic neuropathy, 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 ([facility]) Type 2 diabetes mellitus with foot ulcer, with long-term current use of insulin ([facility]) Stage 3a chronic kidney disease (HCC) ([facility]) Neurogenic bladder Neurogenic bladder, NOS Visual impairment Unspecified visual loss Herpes simplex vulvovaginitis- Primary Primary hypertension ([facility])- Primary Unspecified essential hypertension Type 2 diabetes mellitus with hyperglycemia, with long-term current use of insulin ([facility]) Stage 3 chronic kidney disease, unspecified whether stage 3a or 3b CKD (HCC) ([facility]) Stage 3a chronic kidney disease (HCC) ([facility]) Urinary incontinence without sensory awareness Incontinence without sensory awareness Continuous leakage of urine Continuous leakage Primary hypertension ([facility])- Primary Unspecified essential hypertension Acute cystitis without hematuria Type 2 diabetes mellitus with diabetic neuropathy, 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 ([facility]) UTI symptoms Stage 3a chronic kidney disease (HCC) ([facility]) Neurogenic bladder Neurogenic bladder, NOS Type 2 diabetes mellitus with hyperglycemia, with long-term current use of insulin ([facility]) Essential (primary) hypertension ([facility]) Unspecified essential hypertension Chronic cough- Primary Cough Type 2 diabetes mellitus with diabetic chronic kidney disease ([facility]/HCC) Chronic kidney disease, stage 3b (HCC) ([facility]) Hyperparathyroidism, unspecified ([facility]) Hyperparathyroidism, unspecified Rheumatoid arthritis, unspecified ([facility]) Malignant neoplasm of cervix uteri, unspecified ([facility]) Type 2 diabetes mellitus with hyperglycemia, with long-term current use of insulin ([facility]) Type 2 diabetes mellitus with hyperglycemia, with long-term current use of insulin ([facility])- Primary Type 2 diabetes mellitus with diabetic chronic kidney disease ([facility]) Chronic kidney disease, stage 3b (HCC) ([facility]) Hyperparathyroidism, unspecified ([facility]) Hyperparathyroidism, unspecified Malignant neoplasm of cervix uteri, unspecified ([facility]) Rheumatoid arthritis, unspecified ([facility]) Essential (primary) hypertension ([facility]) Unspecified essential hypertension 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 Iron deficiency anemia, unspecified iron deficiency anemia type Primary hypertension ([facility]) Unspecified essential hypertension Type 2 diabetes mellitus with diabetic neuropathy, 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 ([facility]) RSD (reflex sympathetic dystrophy) Unspecified reflex sympathetic dystrophy Continuous leakage of urine Continuous leakage 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, left, sequela ([facility]) Skin lesion of face Unspecified disorder of skin and subcutaneous tissue documented [facility]* Diagnosis Reflex sympathetic dystrophy of right upper extremity Complex regional pain syndrome type 1 of right upper extremity [facility] Diagnosis Complex regional pain syndrome type 1 of right upper extremity- Primary Encounter for long-term opiate analgesic use Encounter for long-term (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 of other medications [facility]* Diagnosis Chronic cough- Primary Cough Type 2 diabetes mellitus with diabetic chronic kidney disease (HCC) ([facility]) Chronic kidney disease, stage 3b (HCC) ([facility]) Hyperparathyroidism, unspecified ([facility]) Hyperparathyroidism, unspecified Rheumatoid arthritis, unspecified ([facility]) Malignant neoplasm of cervix uteri, unspecified ([facility]) Type 2 diabetes mellitus with hyperglycemia, with long-term current use of insulin ([facility]) documented in this encounter [facility]* Diagnosis Chronic cough- Primary Cough documented in this encounter [facility]* Diagnosis Nausea and vomiting, unspecified vomiting type- Primary documented in this encounter [facility] HealthcareEvaluation note* Diagnosis Reflex sympathetic dystrophy of right upper extremity [facility]* Diagnosis Encounter for subsequent annual wellness visit (AWV) in Medicare patient- Primary Age related osteoporosis, unspecified pathological fracture presence ([facility]) Stage 3 chronic kidney disease, unspecified whether stage 3a or 3b CKD (HCC) ([facility]) Primary hypertension ([facility]) Unspecified essential hypertension Type 2 diabetes mellitus with hyperglycemia, with long-term current use of insulin ([facility]) Vitamin D deficiency Type 2 diabetes mellitus with diabetic neuropathy, 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 ([facility]) Type 2 diabetes mellitus with foot ulcer, with long-term current use of insulin ([facility]) Stage 3a chronic kidney disease (HCC) ([facility]) Neurogenic bladder Neurogenic bladder, NOS Visual impairment Unspecified visual loss Herpes simplex vulvovaginitis- Primary Primary hypertension ([facility])- Primary Unspecified essential hypertension Type 2 diabetes mellitus with hyperglycemia, with long-term current use of insulin ([facility]) Stage 3 chronic kidney disease, unspecified whether stage 3a or 3b CKD (HCC) ([facility]) Stage 3a chronic kidney disease (HCC) ([facility]) Urinary incontinence without sensory awareness Incontinence without sensory awareness Continuous leakage of urine Continuous leakage Primary hypertension ([facility])- Primary Unspecified essential hypertension Acute cystitis without hematuria Type 2 diabetes mellitus with diabetic neuropathy, 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 ([facility]) UTI symptoms Stage 3a chronic kidney disease (HCC) ([facility]) Neurogenic bladder Neurogenic bladder, NOS Type 2 diabetes mellitus with hyperglycemia, with long-term current use of insulin ([facility]) Essential (primary) hypertension ([facility]) Unspecified essential hypertension Chronic cough- Primary Cough Type 2 diabetes mellitus with diabetic chronic kidney disease ([facility]) Chronic kidney disease, stage 3b (HCC) ([facility]) Hyperparathyroidism, unspecified ([facility]) Hyperparathyroidism, unspecified Rheumatoid arthritis, unspecified ([facility]) Malignant neoplasm of cervix uteri, unspecified ([facility]) Type 2 diabetes mellitus with hyperglycemia, with long-term current use of insulin ([facility]) Type 2 diabetes mellitus with hyperglycemia, with long-term current use of insulin ([facility])- Primary Type 2 diabetes mellitus with diabetic chronic kidney disease ([facility]) Chronic kidney disease, stage 3b (HCC) ([facility]) Hyperparathyroidism, unspecified ([facility]) Hyperparathyroidism, unspecified Malignant neoplasm of cervix uteri, unspecified ([facility]) Rheumatoid arthritis, unspecified ([facility]) Essential (primary) hypertension ([facility]) Unspecified essential hypertension 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 Iron deficiency anemia, unspecified iron deficiency anemia type Primary hypertension ([facility]) Unspecified essential hypertension Type 2 diabetes mellitus with diabetic neuropathy, unspecified whether longterm insulin use ([facility]) RSD (reflex sympathetic dystrophy) Unspecified reflex sympathetic dystrophy Continuous leakage of urine Continuous leakage 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, left, sequela ([facility]) Skin lesion of face Unspecified disorder of skin and subcutaneous tissue Essential (primary) hypertension ([facility])- Primary Unspecified essential hypertension Type 2 diabetes mellitus with diabetic neuropathy, unspecified whether longterm insulin use ([facility]) Chronic kidney disease, stage 4 (severe) ([facility]) Neurogenic bladder Neurogenic bladder, NOS Type 2 diabetes mellitus with hyperglycemia, with long-term current use of insulin ([facility]) Other chest pain Continuous leakage of urine Continuous leakage [facility] Diagnosis Onset Date Resolution Status Admit Date Anemia of renal disease acute J anuary 2024 11:12am B12 deficiency acute September 042024 11:12am CKD stage 3b, GFR 30-44 ml/min acute September 04, 2024 11:12am 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 acute Ja nuary 2024 11:12am Hyperkalemia acute August 11:12am Hyperparathyroidism acute ry 2024 11:12am Hypertensive nephropathy acute September 04, 2024 11:12am Hypomagnesemia acute September 042024 11:12am Iron deficiency anemia acute Ja nuary 2024 11:12am Neurogenic bladder acute 2024 11:12am Renal cyst acute September 04, 2024 11:12am Vitamin D toxicity acute 2024 11:12am [facility] Work Phone: [facility] general Narrative - Reported* Type Description Date [...] SURGERY Hospitalization History DKA 2014 Hospitalization History [facility] 05/2022 5 [facility]Clock Records Other history general Narrative - Reported* Type [...] SURGERY Hospitalization History DKA 2014 Hospitalization History [facility] 05/2022 5 O'Clock Records Other Hospital course Narrative No data available for this section [facility] Discharge instructions No data available for this section [facility] InstructionsNot on filedocumented in this encounter [facility] filed[facility] in this [facility]ructionsNot on filedocumented in this encounter [facility]ructionsNot on filedocumented in this encounter [facility] note No data available for this section [facility] reason for referral (narrative)* Diagnostic Procedure Only (Routine) - Pending Review Specialty Diagnoses / Procedures Referred By Danny hensley Referred To Contact US IMAGING Diagnoses Kidney cyst, acquired Procedures US KIDNEY/BLADDER US RETROPERITONEAL REAL TIME W/IMAGE COMPLETE Taurus Ballard MD [address] [id number] [facility] [place] [address] Referral ID Status Reason Start Date Expiration Date Visits Requested Visits Authorized [id number] Pending Review Auto-Generat ed Referral 10/05/2023 08/03/2024 1 1 [facility] for referral (narrative)* Outpatient Procedure (Routine) - New Request Specialty Diagnoses / Procedures Referred By Danny hensley Referred To Contact [facility] Diagnoses Retention of urine BURKE (stress urinary incontinence, female) Procedures FLUROURODYNAMICS WITH EMG EMG STDS ANAL/URTL SPHNCTR OTH/THN NDL Carmenza Nolen MD [address] [place] [address] [address] [place] [address] Referral ID Status Reason Start Date Expiration Date Visits Requested Visits Authorized [id number] New Request Auto-Generat ed Referral 03/26/2024 03/26/2025 1 1 [facility] for referral (narrative)* Consultation (Routine) - Pending Review Specialty Diagnoses / Procedures Referred By Danny hensley Referred To Contact Nephrology Diagnoses Hyperparathyroidism, unspecified (CMS/HCC) Stage 3a chronic kidney disease (HCC) ([facility]/HCC) Procedures HI OFFICE/OUTPATIENT NEW HIGH MDM 60 MINUTES Agusto Olmstead NP [address] [place] [address] Tyler Valencia MD [address] [address] Referral ID Status Reason Start Date Expiration Date Visits Requested Visits Authorized [id number] Pending Review Specialty Services Required 04/16/2024 10/13/2024 1 1 Scheduling Instructions Was already seen in practice, needs to re establish [facility] for visit NarrativeReferral Agusto Olmstead, Mark Anthony pt Type 2 IDDM apt with [employer]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, 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-C, BC-ADMNort [employer] Other Summary Purpose Family History Relationship Condition [...] Documents on File Type Date Recorded Patient Telecommunication Operator Expl anation Advance Directive(s) 01/17/2021 3:49 PM Advance Directive Response Recorded Date/ Time Advance Directives No April 09, 2024 11:42am Advance Directive Response Recorded Date/ Time Advance Directives No April 09, 2024 10:42am Reason for Referral Specialty Diagnoses / Procedures Referred By Danny hensley Referred To Contact CT IMAGING Diagnoses Other hydronephrosis Procedures CT UROGRAM WO/W IVCON CT ABD & PELVIS W/WO CONTRST 1+ BODY REGNS Taurus Ballard MD [address] [place] [address] [place] [address] Referral ID Status Reason Start Date Expiration Date Visits Requested Visits Authorized [id number] Pending Review Auto-Generat ed Referral 01/19/2024 02/10/2025 1 1 Referred by: Vern TAVERAS, Lisa Montiel Chief Complaint and Reason for Visit Chief Complaint Renal 4 Month Follow Up Chief Complaint RENAL F/U Reason for Visit Anemia of renal dise ase B12 deficiency CKD stage 3b, GFR 30-44 ml/min Diabetic nephropathy associated with type 2 diabetes mellitus Hyperkalemia Hyperparathyroidism Hypertensive nephropathy Renal cyst Chief Complaint Admit Date RENAL 3 MONTH F/U September 04, 2024 1 1:12am Reason for Visit Admit Date Anemia of renal disease September 04 11:12am B12 deficiency September 04, 2024 1 1:12am CKD stage 3b, GFR 30-44 ml/min August 212024 11:12am 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 September 04, 2024 11:12am Hyperkalemia September 04, 2024 1 1:12am Hyperparathyroidism September 04, 2024 1 1:12am Hypertensive nephropathy September 04, 025 11:12am Hypomagnesemia September 04, 2024 1 1:12am Iron deficiency anemia September 04 11:12am Neurogenic bladder September 04, 2024 1 1:12am Renal cyst September 04, 2024 1 1:12am Vitamin D toxicity September 04, 2024 1 1:12am Additional Source Comments INFORMATION SOURCE (unrecogn ized section and content) DATE CREATED AUTHOR 01/23/2021 [facility] DATE CREATED AUTHOR AUTHOR'S ORGANIZ ATION 01/04/2023 [facility] DATE CREATED AUTHOR AUTHOR'S ORGANIZ ATION 10/19/2023 [facility] DATE CREATED AUTHOR AUTHOR'S ORGANIZ ATION 11/03/2023 [facility] DATE CREATED AUTHOR AUTHOR'S ORGANIZ ATION 03/05/2024 [facility] DATE CREATED AUTHOR AUTHOR'S ORGANIZ ATION 04/02/2024 [facility] DATE CREATED AUTHOR AUTHOR'S ORGANIZ ATION 04/29/2024 [facility] DATE CREATED AUTHOR AUTHOR'S ORGANIZ ATION 06/28/2024 [facility] DATE CREATED AUTHOR AUTHOR'S ORGANIZ ATION 07/05/2024 [facility] DATE CREATED AUTHOR AUTHOR'S ORGANIZ ATION 07/08/2024 [facility] DATE CREATED AUTHOR AUTHOR'S ORGANIZ ATION 09/02/2024 [facility] EPIC Source Comments (unrecognize d section and content) In the event this informatio n is protected by the Federal Confidentiality of Alcohol and Drug Abuse Patient Records regulations: The Federal rules restrict any use of the information to criminally investigate or prosecute any alcohol or drug abuse patient.[facility] the event this information is protected by the Federal Confidentiality of Alcohol and Drug Abuse Patient Records regulations: The Federal rules restrict any use of the information to criminally investigate or prosecute any alcohol or drug abuse patient.[facility] Hospital[facility] the event this information is protected by the Federal Confidentiality of Alcohol and Drug Abuse Patient Records regulations: The Federal rules restrict any use of the information to criminally investigate or prosecute any alcohol or drug abuse patient.[facility] Hospital[facility] the event this information is protected by the Federal Confidentiality of Alcohol and Drug Abuse Patient Records regulations: The Federal rules restrict any use of the information to criminally investigate or prosecute any alcohol or drug abuse patient.[facility] Hospital[facility] the event this information is protected by the Federal Confidentiality of Alcohol and Drug Abuse Patient Records regulations: The Federal rules restrict any use of the information to criminally investigate or prosecute any alcohol or drug abuse patient.[facility] Hospital[facility] the event this information is protected by the Federal Confidentiality of Alcohol and Drug Abuse Patient Records regulations: The Federal rules restrict any use of the information to criminally investigate or prosecute any alcohol or drug abuse patient.[facility] Hospital[facility] the event this information is protected by the Federal Confidentiality of Alcohol and Drug Abuse Patient Records regulations: The Federal rules restrict any use of the information to criminally investigate or prosecute any alcohol or drug abuse patient.[facility] the event this information is protected by the Federal Confidentiality of Alcohol and Drug Abuse Patient Records regulations: The Federal rules restrict any use of the information to criminally investigate or prosecute any alcohol or drug abuse patient.[facility] Hospital[facility] the event this information is protected by the Federal Confidentiality of Alcohol and Drug Abuse Patient Records regulations: The Federal rules restrict any use of the information to criminally investigate or prosecute any alcohol or drug abuse patient.[facility] Hospital[facility] the event this information is protected by the Federal Confidentiality of Alcohol and Drug Abuse Patient Records regulations: The Federal rules restrict any use of the information to criminally investigate or prosecute any alcohol or drug abuse patient.[facility] Hospital[facility] the event this information is protected by the Federal Confidentiality of Alcohol and Drug Abuse Patient Records regulations: The Federal rules restrict any use of the information to criminally investigate or prosecute any alcohol or drug abuse patient.[facility] Hospital[facility] the event this information is protected by the Federal Confidentiality of Alcohol and Drug Abuse Patient Records regulations: The Federal rules restrict any use of the information to criminally investigate or prosecute any alcohol or drug abuse patient.[facility] Hospital[facility] the event this information is protected by the Federal Confidentiality of Alcohol and Drug Abuse Patient Records regulations: The Federal rules restrict any use of the information to criminally investigate or prosecute any alcohol or drug abuse patient.[facility] Hospital[facility] the event this information is protected by the Federal Confidentiality of Alcohol and Drug Abuse Patient Records regulations: The Federal rules restrict any use of the information to criminally investigate or prosecute any alcohol or drug abuse patient.[facility] HospitalIn the event this information is protected by the Federal Confidentiality of Alcohol and Drug Abuse Patient Records regulations: The Federal rules restrict any use of the information to criminally investigate or prosecute any alcohol or drug abuse patient.[facility] Hospital[facility] the event this information is protected by the Federal Confidentiality of Alcohol and Drug Abuse Patient Records regulations: The Federal rules restrict any use of the information to criminally investigate or prosecute any alcohol or drug abuse patient.[facility] Hospital[facility] the event this information is protected by the Federal Confidentiality of Alcohol and Drug Abuse Patient Records regulations: The Federal rules restrict any use of the information to criminally investigate or prosecute any alcohol or drug abuse patient.[facility] HospitalIn the event this information is protected by the Federal Confidentiality of Alcohol and Drug Abuse Patient Records regulations: The Federal rules restrict any use of the information to criminally investigate or prosecute any alcohol or drug abuse patient.[facility] HospitalIn the event this information is protected by the Federal Confidentiality of Alcohol and Drug Abuse Patient Records regulations: The Federal rules restrict any use of the information to criminally investigate or prosecute any alcohol or drug abuse patient.[facility] HospitalIn the event this information is protected by the Federal Confidentiality of Alcohol and Drug Abuse Patient Records regulations: The Federal rules restrict any use of the information to criminally investigate or prosecute any alcohol or drug abuse patient.[facility] HospitalIn the event this information is protected by the Federal Confidentiality of Alcohol and Drug Abuse Patient Records regulations: The Federal rules restrict any use of the information to criminally investigate or prosecute any alcohol or drug abuse patient.[facility] HospitalIn the event this information is protected by the Federal Confidentiality of Alcohol and Drug Abuse Patient Records regulations: The Federal rules restrict any use of the information to criminally investigate or prosecute any alcohol or drug abuse patient.[facility] Reason for Visit (unrecogniz ed section [...] c/o UNCONTROLLED leakage - STOP ICS [id number] Reason Comments Radiology CT Specialty Diagnoses / Procedures Referred By Contac t Referred To Contact CT IMAGING Diagnoses Other hydronephrosis Procedures CT UROGRAM WO/W IVCON CT ABD & PELVIS W/WO CONTRST 1+ BODY Taurus Moore MD [address] [place] [address] 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 Reason Comments Arm Injury Reason Onset Date Comments Med Refill 07/15/2024 Reason Onset Date Comments Med Refill 08/22/2024 Reason Comments Diabetes Hypertension Patient Care team informatio n (unrecognized section and content) Team Status: Active Member Role Status Dates Sumi Lentz APRN BEEF CATTLE GRAZIER-C Primary Care Provider Active Team Status: Active Member Role Status Dates Sumi Lentz APRN BEEF CATTLE GRAZIER-C Primary Care Provider Active Start: April 26, 2024 End: April 27, 2024 Rafi Marcelo DO Attending Provider Active Sta rt: April 26, 2024 End: April 27, 2024 Shaikh Leon MD Active Start: 2023 End: April 27, 2024 Team Status: Active Member Role Status Dates Sumi Lentz APRN BEEF CATTLE GRAZIER-C Primary Care Provider Active Start: May 10, 2024 Rafi Marcelo DO Attending Provider Active Sta rt: May 10, 2024 Team Status: Inactive Member Role Status Dates Sumi Lentz APRN BEEF CATTLE GRAZIER-C Primary Care Provider Active Start: June 05, 2024 End: June 05, 2024 Eli Sprague MD Attending Provider Active Star t: June 05, 2024 End: June 05, 2024 Amusement Park Entertainer Relationship Specialty Start Date End Date Agusto Olmstead [address] [place] [address] PCP - General 05/17/23 Lisa Porras MD [address] [place] [address] Referring Urology 05/11/23 Amusement Park Entertainer Relationship Specialty Start Date End Date Agusto Olmstead [address] [place] [address] PCP - General 05/17/23 Lisa Porras MD [address] [place] [address] Referring Urology 05/11/23 Amusement Park Entertainer Relationship Specialty Start Date End Date PennychristianomundoAgusto [address] [place] [address] PCP - General 05/17/23 Lisa Porras MD [address] [place] [address] Referring Urology 05/11/23 Amusement Park Entertainer Relationship Specialty Start Date End Date Agusto Olmstead [address] [place] [address] PCP - General 05/17/23 Lisa Porras MD [address] [place] [address] Referring Urology 05/11/23 Amusement Park Entertainer Relationship Specialty Start Date End Date Agusto Olmstead,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-MANAGER UTILIZATION MANAGEMENT [address] [place] [address] PCP - General Nurse Practitioner 11/10/22 Amusement Park Entertainer Relationship Specialty Start Date End Date Agusto Olmstead [address] [place] [address] PCP - General 05/17/23 Lisa Porras MD [address] [place] [address] Referring Urology 05/11/23 Amusement Park Entertainer Relationship Specialty Start Date End Date Agusto Olmstead [address] [place] [address] PCP - General 05/17/23 Lisa Porras MD [address] [place] [address] Referring Urology 05/11/23 Team Status: Inactive Member Role Status Dates Eli Sprague MD Attending Provider Active Star t: August 01, 2023 End: August 01, 2023 Amusement Park Entertainer Relationship Specialty Start Date End Date Agusto Olmstead,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-MANAGER UTILIZATION MANAGEMENT [address] [place] [phone] PCP - General Nurse Practitioner 11/10/22 Amusement Park Entertainer Relationship Specialty Start Date End Date Agusto Olmstead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-MANAGER UTILIZATION MANAGEMENT [address] [place] [address] PCP - General Nurse Practitioner 11/10/22 Amusement Park Entertainer Relationship Specialty Start Date End Date Agusto Olmstead [address] [place] [address] PCP - General 05/17/23 Lisa Porras MD [address] [place] [address] Referring Urology 05/11/23 Agusto Olmstead [address] [place] [address] Referring 01/04/24 Amusement Park Entertainer Relationship Specialty Start Date End Date Agusto Olmstead [address] [place] [address] PCP - General 05/17/23 Lisa Porras MD [address] [place] [address] Referring Urology 05/11/23 Agusto Olmstead [address] [place] [address] Referring 01/04/24 Amusement Park Entertainer Relationship Specialty Start Date End Date Agusto Olmstead [address] [place] [address] PCP - General 05/17/23 Lisa Porras MD [address] [place] [address] Referring Urology 05/11/23 Agusto Olmstead [address] [place] [address] Referring 01/04/24 Amusement Park Entertainer Relationship Specialty Start Date End Date Agusto Olmstead [address] [place] [address] PCP - General 05/17/23 Lisa Porras MD [address] [place] [address] Referring Urology 05/11/23 Agusto Olmstead [address] [place] [address] Referring 01/04/24 Amusement Park Entertainer Relationship Specialty Start Date End Date Agusto Olmstead [address] [place] [address] PCP - General 05/17/23 Lisa Porras MD [address] [place] [address] Referring Urology 05/11/23 Agusto Olmstead [address] [place] [address] Referring 01/04/24 Amusement Park Entertainer Relationship Specialty Start Date End Date Agusto Olmstead [address] [place] [address] PCP - General 05/17/23 Lisa Porras MD [address] [place] [address] Referring Urology 05/11/23 Agusto Olmstead [address] [place] [address] Referring 01/04/24 Amusement Park Entertainer Relationship Specialty Start Date End Date Agusto Olmstead [address] [place] [address] PCP - General 05/17/23 Lisa Porras MD [address] [place] [address] Referring Urology 05/11/23 Agusto Olmstead [address] [place] [address] Referring 01/04/24 Amusement Park Entertainer Relationship Specialty Start Date End Date Agusto Olmstead [address] [place] [address] PCP - General 05/17/23 Lisa Porras MD [address] [place] [address] Referring Urology 05/11/23 [address]us[address] Olmstead [address] [place] [address] Referring 01/04/24 Amusement Park Entertainer Relationship Specialty Start Date End Date Agusto Olmstead [address] [place] [address] PCP - General 05/17/23 Lisa Porras MD [address] [place] [address] Referring Urology 05/11/23 Agusto Olmstead [address] [place] [address] Referring 01/04/24 Amusement Park Entertainer Relationship Specialty Start Date End Date Agusto Olmstead [address] [place] [address] PCP - General 05/17/23 Lisa Porras MD [address] [place] [address] Referring Urology 05/11/23 Agusto Olmstead [address] [place] [address] Referring 01/04/24 Amusement Park Entertainer Relationship Specialty Start Date End Date Kofi Gotti MD [address] [place] [address] PCP - General Family Medicine 10/09/23 Amusement Park Entertainer Relationship Specialty Start Date End Date Kofi Gotti MD [address] [place] [address] PCP - General Family Medicine 10/09/23 Amusement Park Entertainer Relationship Specialty Start Date End Date PennychristianoAgusto flower,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-MANAGER UTILIZATION MANAGEMENT PCP - General Nurse Practitioner 11/10/22 Amusement Park Entertainer Relationship Specialty Start Date End Date Agusto Olmstead [address] [place] [address] PCP - General 05/17/23 Lisa Porras MD [address] [place] [address] Referring Urology 05/11/23 Agusto Olmstead [address] [place] [address] Referring 01/04/24 Amusement Park Entertainer Relationship Specialty Start Date End Date Agusto Olmstead,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-MANAGER UTILIZATION MANAGEMENT PCP - General Nurse Practitioner 11/10/22 Amusement Park Entertainer Relationship Specialty Start Date End Date Kofi Gotti MD [address] [place] [address] PCP - General Family Medicine 10/09/23 Amusement Park Entertainer Relationship Specialty Start Date End Date Kofi Gotti MD [address] [place] [address] PCP - General Family Medicine 10/09/23 Amusement Park Entertainer Relationship Specialty Start Date End Date Kofi Gotti MD [address] [place] [address] PCP - General Family Medicine 10/09/23 Amusement Park Entertainer Relationship Specialty Start Date End Date Kofi Gotti MD [address] [place] [address] PCP - General Family Medicine 10/09/23 Amusement Park Entertainer Relationship Specialty Start Date End Date Kofi Gotti MD [address] [place] [address] PCP - General Family Medicine 10/09/23 Amusement Park Entertainer Relationship Specialty Start Date End Date Kofi Gotti MD [address] [place] [address] PCP - General Family Medicine 10/09/23 Amusement Park Entertainer Relationship Specialty Start Date End Date Kofi Gotti MD [address] [place] [address] PCP - General Family Medicine 06/20/24 Agusto Olmstead NP [address] [place] [address] Nurse Practitioner Family Medicine 06/11/24 Amusement Park Entertainer Relationship Specialty Start Date End Date Kofi Gotti MD [address] [place] [address] PCP - General Family Medicine 06/20/24 Agusto Olmstead NP [address] [place] [address] Nurse Practitioner Family Medicine 06/11/24 Amusement Park Entertainer Relationship Specialty Start Date End Date Agusto Olmstead,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-MANAGER UTILIZATION MANAGEMENT PCP - General Nurse Practitioner 11/10/22 Amusement Park Entertainer Relationship Specialty Start Date End Date Kofi Gotti MD [address] [place] [address] PCP - General Family Medicine 06/20/24 Agusto Olmstead NP [address] [place] [phone] Nurse Practitioner Family Medicine 06/11/24 Amusement Park Entertainer Relationship Specialty Start Date End Date Kofi Gotti MD [address] [place] [address] PCP - General [facility] Medicine 06/20/24 Agusto Olmstead NP [address] [place] [address] Nurse Practitioner [facility] 06/11/24 Amusement Park Entertainer Relationship Specialty Start Date End Date Kofi Gotti MD [address] [place] [address] PCP - General [facility] 06/20/24 Agusto Olmstead NP [address] [place] [address] Nurse Practitioner [facility] 06/11/24 Team Status: Active Member Role Status Dates Sumi Lentz APRN BEEF CATTLE GRAZIER-C Primary Care Provider Active Start: August 28, 2024 Eli Sprague MD Attending Provider Active Star t: August 28, 2024 Team Status: Inactive Member Role Status Dates Sumi Lentz APRN BEEF [facility] Primary Care Provider Active Start: September 04, 2024 End: September 04, 2024 Eli Sprague MD Attending Provider Active Star t: September 04, 2024 End: September 04, 2024 Goals (unrecognized section and content) Goals may [...] BE BASED ON THE PRIMARY CLINICAL RECORDS. [employer] [facility]. provides no warranty or guarantee of the accuracy or completeness of information in this document.
== END 2024-09-05 00:33 | disposition home or self-care (01) ==
PROVIDERS: Emergency Provider Student in an Organized Health Care Education/Training Program; PCP Nurse Practitioner
DX: T83.84XA Pain due to genitourinary prosthetic devices, implants and grafts, initial encounter (principal); Z90.710 Acquired absence of both cervix and uterus; R31.9 Hematuria, unspecified
CPT/HCPCS: 99281

== ENCOUNTER 2024-11-14 14:33 | Outpatient (OUT) | payer MEDICARE, SELFPAY ==
--- NOTE | 2024-11-14 14:44 | XR_ITS ---
The [place] [id number] Patient Name: AISLINN CARNES MRN: [id number] date: 1960 Sex: F Assigned Patient Location: [facility] Current Patient Location: [facility] Accession/Order Number: [id number] Exam Date: 11/14/2024 16:41 Report Date: 11/14/2024 16:45 At the request of: AGUSTO LÓPEZ NP Procedure: XR foot RT min 3V RIGHT FOOT - 3 views CLINICAL HISTORY: Stepped on something one week ago. Right lateral foot pain and redness and swelling. COMPARISON: None FINDINGS: Soft tissue swelling is seen particularly involving the fifth digit with 2 linear radio opaque foreign bodies noted in the region of the proximal phalanx of the fifth digit one measuring approximately 17 mm in length the other measuring approximately 7 mm in length. No acute bony process is seen. No plain film evidence of osteomyelitis. Mild degenerative changes particularly involving the MTP joint of the first digit. No bony erosions. XR/XR foot RT min 3V IMPRESSION: SOFT TISSUE SWELLING IS SEEN INVOLVING THE FIFTH DIGIT WITH 2 LINEAR RADIOPAQUE FOREIGN BODIES NOTED. A FRACTURED SEWING PIN IS SUSPECTED. Impression dictated by: Kyree White Jr., D.O.11/14/2024 4:45 PM Dictation Location: [place] [address] Electronically authenticated by: [id number] Y Date: 11/14/2024 16:45
== END 2024-11-14 14:34 | disposition home or self-care (01) ==
LOC: RAD 14:36
PROVIDERS: PCP Nurse Practitioner; Visit Provider Nurse Practitioner
DX: M79.671 Pain in right foot (principal); M79.89 Other specified soft tissue disorders; S91.144A Puncture wound with foreign body of right lesser toe(s) without damage to nail, initial encounter
CPT/HCPCS: 73630

== ENCOUNTER 2024-11-19 13:08 | Outpatient (OUT) | payer MEDICARE, SELFPAY | END 2024-11-19 13:09 | disposition home or self-care (01) | LOC: WC 13:08 | PROVIDERS: PCP Nurse Practitioner; Visit Provider Physician Assistant | DX: E11.621 Type 2 diabetes mellitus with foot ulcer (principal); L97.518 Non-pressure chronic ulcer of other part of right foot with other specified severity | CPT/HCPCS: 11042 ==

== ENCOUNTER 2024-11-21 10:49 | Outpatient (OUT) | payer MEDICARE, SELFPAY ==
[2024-11-21 11:47] LABS: Basophils Absolute Auto 0.1 10^3/uL (0.0-0.1); Basophils Percent Auto 0.6 % (0.2-2.0); Eosinophils Absolute Auto 0.2 10^3/uL (0.0-0.7); Eosinophils Percent Auto 1.9 % (0.9-7.0); Hematocrit 33.8 % (36.0-48.0); Hemoglobin 10.9 g/dL (12.0-16.0); Immature Granulocytes Abs Auto 0.05 10^3/uL (0.00-0.03); Immature Granulocytes Pct Auto 0.6 % (0.0-0.5); Lymphocytes Absolute Auto 2.2 10^3/uL (1.2-3.8); Lymphocytes Percent Auto 26.3 % (20.5-60.0); Mean Corpuscular HGB Conc 32.2 g/dL (29.9-35.2); Mean Corpuscular Volume 80.7 fL (81.0-99.0); Mean Platelet Volume 10.7 fL (9.5-13.5); Monocytes Absolute Auto 0.5 10^3/uL (0.3-0.8); Monocytes Percent Auto 5.6 % (1.7-12.0); Neutrophils Absolute Auto 5.5 10^3/uL (1.4-6.5); Platelet Count 289 10^3/uL (150-450); Red Blood Count 4.19 10^6/uL (4.20-5.40); Red Cell Distribution Width 13.4 % (11.0-15.0); White Blood Count 8.4 10^3/uL (4.0-11.0)
== END 2024-11-21 10:50 | disposition home or self-care (01) ==
LOC: LAB 10:50
PROVIDERS: PCP Nurse Practitioner; Visit Provider Nurse Practitioner
DX: Z01.810 Encounter for preprocedural cardiovascular examination (principal); Z01.812 Encounter for preprocedural laboratory examination; S90.851A Superficial foreign body, right foot, initial encounter; N18.4 Chronic kidney disease, stage 4 (severe); E11.65 Type 2 diabetes mellitus with hyperglycemia; Z79.4 Long term (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; I12.9 Hypertensive chronic kidney disease with stage 1 through stage 4 chronic kidney disease, or unspecified chronic kidney disease
CPT/HCPCS: 36415; 80048; 83540; 85025

== ENCOUNTER 2024-11-21 10:53 | Outpatient (OUT) | payer MEDICARE, SELFPAY ==
--- NOTE | 2024-11-21 10:55 | ECG_ITS ---
The [facility] Test Date: 2024-11-21 Pat Name: AISLINN CARNES Department: Room: - Gender: Female [place]: : 1960 Requested By: RAMON HUNTLEY Order Number: [id number] Reading MD: PADILLA MUKHERJEE M.D. Measurements Intervals [place] Rate: 57 P: 52 DE: 183 QRS: 45 QRSD: 82 T: 54 QT: 452 QTc: 441 Interpretive Statements SINUS BRADYCARDIA Otherwise normal ECG Compared to ECG 09/04/2024 13:57:55 No significant change Electronically Signed On 11-22-2024 15:11:41 EDT by PADILLA MUKHERJEE M.D.
[2024-11-21 11:56] LABS: Anion Gap 16.1; BUN Creatinine Ratio 16.9; Calcium 8.7 mg/dL (8.5-10.1); Carbon Dioxide 21.8 mmol/L (21.0-32.0); Chloride 104 mmol/L (98-107); Estimated GFR (African America 17 (>=60 mL/min/1.73m^2); Estimated GFR (Non-African Ame 14 (>=60 mL/min/1.73m^2); Glucose 177 mg/dL (74-106); Potassium 5.9 mmol/L (3.5-5.1); Sodium 136 mmol/L (136-145)
== END 2024-11-21 10:54 | disposition home or self-care (01) ==
LOC: PST 10:53
PROVIDERS: PCP Nurse Practitioner; Visit Provider Podiatrist Foot & Ankle Surgery
DX: Z01.812 Encounter for preprocedural laboratory examination (principal); Z01.810 Encounter for preprocedural cardiovascular examination; S90.851A Superficial foreign body, right foot, initial encounter
CPT/HCPCS: 36415; 80048; 93005

== ENCOUNTER 2025-01-30 09:05 | Outpatient (OUT) | payer MEDICARE, SELFPAY ==
--- OUTSIDE RECORDS SUMMARY | 2025-01-27 14:40 | XMS_ITS | Encounter Summary ---
Author Organization [facility] Address [address] [place] [address] Care Team Providers Care Sergeant Of Corrections Name Role Phone Latosha Olmstead NP Unavailable [phone] Kofi Gotti MD Primary Care Provider [phone] Ninfa Canela MA Unavailable Unavailable Reason for Visit * Reason Comments Diabetes Encounter Details Date Type Department Care Team ([facility] Contact Info) Description 01/27/2025 2:40 PM EDT Office Visit [facility] [address] [place] [phone] Latosha Olmstead, AQUATIC HABITAT BIOLOGIST [address] [place] [id number] Chronic kidney disease, stage 4 (severe) ([facility]) (Primary Dx); Mixed hyperlipidemia ; Essential (primary) hypertension ; Burning with urination; UTI symptoms; Urinary tract infection symptoms; Type 2 diabetes mellitus with diabetic neuropathy, with long-term current use of insulin ([facility]); History of neurogenic bladder; Neurogenic bladder; 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; Hyperparathyroidism, unspecified ([facility]); B12 deficiency; Type 2 diabetes mellitus with hyperglycemia, with long-term current use of insulin ([facility]); Vitamin D deficiency; Hypomagnesemia; Non compliance w medication regimen; Fatigue, unspecified type; Other fatigue Social History Tobacco Use Types Packs/Day Years Used Date Smoking Tobacco: Never Smokeless Tobacco: Never Alcohol Use Standard Drinks/Week Comments Never 0 (1 standard drink = 0.6 oz pur e alcohol) caffine: 1cup daily Humiliation, Afraid, Rape, and Kick questionnair e Answer Date Recorded Within the last year, have y ou been afraid of your partner or ex-partner? No 10/11/2023 Within the last year, have y ou been humiliated or emotionally abused in other ways by your partner or ex-partner? No Within the last year, have y ou been kicked, hit, slapped, or otherwise physically hurt by your partner or ex-partner? No 10/11/2023 Within the last year, have y ou been raped or forced to have any kind of sexual activity by your partner or ex-partner? No 10/11/2023 Social Connection and Isolat ion Panel [NHANES] Answer Date Recorded In a typical week, how many times do you talk on the phone with family, friends, or neighbors? More than three times a week 10/11/2023 How often do you get togethe r with friends or relatives? More than three times a week 10/11/2023 How often do you attend formerly [facility] or anglican services? Never 10/11/2023 Do you belong to any clubs o r organizations such as sabianist groups, unions, fraternal or athletic groups, or school groups? No 10/11/2023 How often do you attend meet ings of the clubs or organizations you belong to? Never 10/11/2023 Are you , , di vorced, , never , or living with a partner? 10/11/2023 AUDIT-C Answer Date Recorded Q1: How often do you have a drink containing alcohol? Never 10/11/2023 Q2: How many drinks containi ng alcohol do you have on a typical day when you are drinking? Patient does not drink Q3: How often do you have si x or more drinks on one occasion? Never 10/11/2023 Overall Financial Resource Strain (CARDIA) Answe r Date Recorded How hard is it for you to pa y for the very basics like food, housing, medical care, and heating? Somewhat hard 10/11/2023 PHQ-2 Answer Date Recorded Patient Health Questionnaire-2 Score 2 11/18/2024 [facility] - Occupational Stress Questionnaire Answer Date Recorded Do you feel stress - tense, restless, nervous, or anxious, or unable to sleep at night because your mind is troubled all the time - these days? Very much 10/11/2023 Exercise Vital Sign Answer Date Recorde d On average, how many days pe r week do you engage in moderate to strenuous exercise (like a brisk walk)? 0 days 10/11/2023 On average, how many minutes do you engage in exercise at this level? 0 min 10/11/2023 Hunger Vital Sign Answer Date Recorded Within the past 12 months, y ou worried that your food would run out before you got the money to buy more. Never true 10/11/19 24 Within the past 12 months, t he food you bought just didn't last and you didn't have money to get more. Never true 10/11/2023 PRAPARE - Transportation Answer Date Re corded In the past 12 months, has l ack of transportation kept you from medical appointments or from getting medications? No 09/22 In the past 12 months, has l ack of transportation kept you from meetings, work, or from getting things needed for daily living? No 10/11/2023 Housing Stability Vital Sign Answer Mamadou e Recorded In the last 12 months, was t here a time when you were not able to pay the mortgage or rent on time? No 10/11/2023 In the last 12 months, how many places have you lived? 1 10/11/2023 In the last 12 months, was t here a time when you did not have a steady place to sleep or slept in a custodial (including now)? No 10/11/2023 Comments Unknown Sex and Gender Information Value Date Recorded Sex Assigned at Not on file Legal Sex Female 6:55 PM EDT Gender Identity Not on file Sexual Orientation Not on file documented as of this encounter Last Filed Vital Signs Vital Sign Reading Time Taken Comments Blood Pressure 146/80 01/27/2025 3:09 PM EDT Pulse 69 01/27/2025 3:09 PM EDT Temperature 36.6 C (97.8 F) 01/27/2025 3:09 PM EDT Respiratory Rate 18 01/27/2025 3:09 PM EDT Oxygen Saturation 96% 01/27/2025 3:09 PM EDT Inhaled Oxygen Concentration - - Weight 58.4 kg (128 lb 12.8 oz) 01/27/2025 3:09 PM EDT Height - - Body Mass Index 25.15 12/05/2024 1:31 PM EDT documented in this encounter Patient Instructions * Patient Instructions* Latosha Olmstead NP - 01/27/2025 2:40 PM EDT Check labs documented in this encounter Progress Notes * Latosha Olmstead NP - 01/27/2025 5:38 PM EDTAssociated Problem(s): Other fatigue Unclear etiology Check labs * Latosha Olmstead NP - 01/27/2025 5:36 PM EDTAssociated Problem(s): Non compliance w medication regimen Difficulty with follow ups, taking all meds and getting to all appts No longer being followed by advocate d/t pt non compliance * Latosha Olmstead NP - 01/27/2025 5:36 PM EDTAssociated Problem(s): Hypomagnesemia Check labs * Latosha Olmstead NP - 01/27/2025 5:35 PM EDTAssociated Problem(s): Vitamin D deficiency Check labs * Latosha Olmstead NP - 01/27/2025 5:35 PM EDTAssociated Problem(s): Type 2 diabetes mellitus with hyperglycemia, with long-term current use of insulin (HCC) Check blood sugars daily, notify if <70 or >200. Take medications (pills or insulin) as directed. Monitor for s/s of hypoglycemia (sweaty, dizziness, nausea, vomiting, or shakiness). Watch for increase in thirst, urination, or appetite. Inspect feet frequently monitoring for open wounds , andalso recommend yearly eye exam. Pt should attempt to remain as physically active as chronic conditions allow, as well as trying to follow a diet low in carbohydrates, and simple sugars. Current meds: statin, basal and bolus insulin, A1c: 9.4% 11/18/24, 08/13 10.1% * Latosha Olmstead NP - 01/27/2025 5:35 PM EDTAssociated Problem(s): B12 deficiency Check to see if source of fatigue * Latosha Olmstead NP - 01/27/2025 5:35 PM EDTAssociated Problem(s): Hyperparathyroidism, unspecified (HCC) Non compliant with fu with nephrology * Latosha Olmstead NP - 01/27/2025 5:35 PM EDTAssociated Problem(s): 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 Check labs * Latosha Olmstead NP - 01/27/2025 5:34 PM EDTAssociated Problem(s): Urinary tract infection symptoms See UA from office Will treat with atb today, Check urine culture * Latosha Olmstead NP - 01/27/2025 5:33 PM EDTAssociated Problem(s): Neurogenic bladder Straight caths self TID * Latosha Olmstead NP - 01/27/2025 5:33 PM EDTAssociated Problem(s): History of neurogenic bladder (Resolved 01/27/2025) Is straight cathing herself 3 times daily Will check labs * Latosha Olmstead NP - 01/27/2025 5:32 PM EDTAssociated Problem(s): Chronic kidney disease, stage 4 (severe) ([facility]) Long standing uncontrolled HTN and DM Multiple attempts to get pt to specialists, does not follow through She is established with local Document Control Associate Goal: bp and DM control, although there again her compliance with blood sugar checking is difficult. She has been referred to local area Endo and [facility], but does not go to her appts as scheduled and has been discharged, and does not appear to have a strong support system I asked her today why she does not go to her appts, while she did not have a specific order, she reported that everytime she goes to the kidney doctor she ends up in the hospital. I explained that d/t her critical levels she is being sent to the ER. I also advised of the importance of going for thefu to see if therapies are helping or not * Latosha Olmstead NP - 01/27/2025 5:30 PM EDTAssociated Problem(s): Essential (primary) hypertension Please check blood pressure daily and record DASH diet Limit caffeine Take medication as directed Contact office if chest pain, pressure, dizziness, shortness of breath, swelling legs Recommend slow position changes Current meds: amlodipine and metoprolol * Latosha Olmstead NP - 01/27/2025 5:30 PM EDTAssociated Problem(s): Type 2 diabetes mellitus with diabetic neuropathy, with long-term current use of insulin (HCC) Not sure if her balance issues are neuropathy related or lumbar etiology * PADMAJA SULLIVAN - 01/27/2025 2:40 PM EDT Pt has been very fatigue, sleeping a lot, back pain, and dizzy spells. Very dizzy and off balance. Pt is having troubles going up steps or a curb. Pt is often wearing sunglasses due to the sensitivity to light. Pt has been falling often- 1 fall last week and 3x in the last month Pt believes she has a uti- pt caths self 2-3x daily. Pt has had burning, pain, and discomfort for about a week, pt has been taking AZO in the last couple days and states that has been helping with the burning. Pt drinks about 3 bottles of water daily. * Latosha Olmstead NP - 01/27/2025 2:40 PM EDT Images from the original note were not included. Renate Wheeler is a 64 y.o. female presents with chief complaint of Diabetes HPI: Pt has been very fatigue, sleeping a lot, back pain, and dizzy spells. Very dizzy and off balance. Pt is having troubles going up steps or a curb. Pt is often wearing sunglasses due to the sensitivity to light. Pt has been falling often- 1 fall last week and 3x in the last month Pt believes she has a uti- pt caths self 2-3x daily. Pt has had burning, pain, and discomfort for about a week, pt has been taking AZO in the last couple days and states that has been helping with the burning. Pt drinks about 3 bottles of water daily. Has not followed with them . She does report that she is now cathing herself 3 times daily. Thinks having UTI: burning w urination, and cath, pelvic discomfort, no herpes breakouts noted No fever or chills noted Blood sugars 230-240, no low blood sugars, is not wearing sensor, is poking finger, is taking insulin both bolus and basal insulin Fatigue: on going issue, getting worse more profound, sl dyspnea, but not a big factor. Also had stress test/[place]: 11/20[place] [facility] [place] Back pain: no pain at rest, worsens with activity, about 10-15 mins pain starts, throbbing pain, 10/10, no NT in legs, but does have neuropathy bilat feet and hands No cauda, but does have neurogenic bladder and does self cath. Has been having some falls more recently tripping, may be neuropathy needed. But isnt sure, no syncope issues. SUBJECTIVE: MEDICATIONS: Current Outpatient Medications Medication Instructions amLODIPine (NORVASC) 10 mg, Oral, Daily amoxicillin (AMOXIL) 500 mg, Oral, 2 times daily atorvastatin (LIPITOR) 20 mg, Oral, Nightly cetirizine (ZYRTEC) 10 mg, Oral, Daily cyanocobalamin (VITAMIN B-12) 1,000 mcg, Daily denosumab (PROLIA) 60 mg, Every 6 months ferrous sulfate 325 mg, Daily with breakfast fluticasone (Flonase) 50 MCG/ACT nasal spray 2 sprays, Each Nostril, Daily, Shake gently. Before first use, prime pump. After use, clean tip and replace cap. furosemide (LASIX) 40 mg, 2 times daily HYDROcodone-acetaminophen ([place]) 7.5-325 MG tablet 1 tablet, 3 times daily PRN insulin glargine (LANTUS) 30 Units, Subcutaneous, Nightly insulin lispro (HumaLOG) 100 UNIT/ML injection INJECT 4 units at breakfast, 6 units at lunch, and 8units at dinner plus sliding scale coverage, max of 30 units daily metoprolol succinate XL (TOPROL-XL) 50 mg, Oral, Daily nitroglycerin (NITROSTAT) 0.4 mg, Every 5 min PRN ondansetron ODT (ZOFRAN-ODT) 4 mg, Every 8 hours PRN pen needle 31G x 5 mm misc 5 injections daily. Use as instructed pregabalin (Lyrica) 150 MG capsule 1 capsule, 3 times daily ALLERGIES: Allergies Allergen Reactions Latex Rash Added [...] cough, shortness of breath and wheezing. Cardiovascular: Negative for chest pain, palpitations and leg swelling. Gastrointestinal: Positive for nausea and vomiting. Negative for abdominal pain, blood in stool, constipation and diarrhea. Genitourinary: Positive for dysuria. Negative for difficulty urinating and frequency. Musculoskeletal: Positive for back pain. Negative for arthralgias, joint swelling and myalgias. Skin: Negative for rash and wound. Neurological: Positive for numbness. Negative for dizziness, tremors, seizures, syncope and headaches. Psychiatric/Behavioral: Negative for behavioral problems, self-injury and suicidal ideas. The patient is not nervous/anxious. Hematological: Does not bruise/bleed easily. Endocrine: Negative for polydipsia, polyphagia and polyuria. Allergic/Immunologic: Negative for environmental allergies and food allergies. PAST MEDICAL HISTORY Past Medical History: Diagnosis Date Amputation of left great toe ([facility]) Cervical cancer ([facility]) 10/11/2023 had Hysterectomy Charcot's joint of foot, left 10/11/2023 Chronic kidney disease, stage III (moderate) ([facility]) ([facility]) 10/11/2023 Fatty liver 10/11/2023 History of hysterectomy [...] of nail of digit of hand Osteoporosis ([facility]) 10/11/2023 Post-menopausal 10/11/2023 Rheumatoid arthritis ([facility]) 10/11/2023 RSD (reflex sympathetic dystrophy) 10/11/2023 Type 2 diabetes mellitus with diabetic neuropathy, 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 ([facility]) 10/11/2023 Visual impairment 10/11/2023 HAD BILATERAL CATARCT [...] in her father. OBJECTIVE: Visit Vitals BP 146/80 (BP Location: Left arm, Patient Position: Sitting, BP Cuff Size: Adult long) Pulse 69 Temp 97.8 ??F (Temporal) Resp 18 Wt 128 lb 12.8 oz SpO2 96% BMI 25.15 kg/m?? Smoking Status Never BSA 1.57 m?? Physical Exam Vitals and nursing note reviewed. [...] heard. Pulmonary: Effort: Pulmonary effort is normal. Breath sounds: Normal breath sounds. No wheezing or rhonchi. Abdominal: General: Bowel sounds are normal. There [...] and oriented to person, place, and time. Comments: Neg ulnar drift, +imbalance w romberg testing MMT 5/5 bilat UE/LE Diminished DTR's bilat patellar, achilles is 1+ bilat Psychiatric: Mood and Affect: Mood normal. Behavior: Behavior normal. Thought Content: Thought content normal. Judgment: Judgment normal. ASSESSMENT AND PLAN: No follow-ups on file. Problem List Items Addressed This Visit Vitamin D deficiency Check labs Relevant Orders Basic metabolic panel Vitamin D 25 hydroxy Type 2 diabetes mellitus with hyperglycemia, with long-term current use of insulin ([facility]) Check blood sugars daily, notify if <70 or >200. Take medications (pills or insulin) as directed. Monitor for s/s of hypoglycemia (sweaty, dizziness, nausea, vomiting, or shakiness). Watch for increase in thirst, urination, or appetite. Inspect feet frequently monitoring for open wounds , andalso recommend yearly eye exam. Pt should attempt to remain as physically active as chronic conditions allow, as well as trying to follow a diet low in carbohydrates, and simple sugars. Current meds: statin, basal and bolus insulin, A1c: 9.4% 11/18/24, 08/13 10.1% Relevant Orders Basic metabolic panel CBC and differential Neurogenic bladder Straight caths self TID Essential (primary) hypertension ([facility]) Please check blood pressure daily and record DASH diet Limit caffeine Take medication as directed Contact office if chest pain, pressure, dizziness, shortness of breath, swelling legs Recommend slow position changes Current meds: amlodipine and metoprolol Relevant Medications metoprolol succinate XL (Toprol-XL) 50 MG 24 hr tablet Other Relevant Orders Basic metabolic panel Hepatic function panel Type 2 diabetes mellitus with diabetic neuropathy, with long-term current use of insulin ([facility]) Not sure if her balance issues are neuropathy related or lumbar etiology Relevant Orders Basic metabolic panel 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 Check labs Relevant Orders Basic metabolic panel Hyperparathyroidism, unspecified ([facility]) Non compliant with fu with nephrology B12 deficiency Check to see if source of fatigue Mixed hyperlipidemia ([facility]) Relevant Medications atorvastatin (Lipitor) 20 MG tablet Other Relevant Orders Basic metabolic panel Chronic kidney disease, stage 4 (severe) ([facility]) Long standing uncontrolled HTN and DM Multiple attempts to get pt to specialists, does not follow through She is established with local Document Control Associate Goal: bp and DM control, although there again her compliance with blood sugar checking is difficult. She has been referred to local area Endo and [facility], but does not go to her appts as scheduled and has been discharged, and does not appear to have a strong support system I asked her today why she does not go to her appts, while she did not have a specific order, she reported that everytime she goes to the kidney doctor she ends up in the hospital. I explained that d/t her critical levels she is being sent to the ER. I also advised of the importance of going for thefu to see if therapies are helping or not Relevant Orders Basic metabolic panel Hepatic function panel Magnesium Phosphorus CBC and differential Vitamin D 25 hydroxy Non compliance w medication regimen Difficulty with follow ups, taking all meds and getting to all appts No longer being followed by advocate d/t pt non compliance RESOLVED: History of neurogenic bladder Is straight cathing herself 3 times daily Will check labs Hypomagnesemia Check labs Urinary tract infection symptoms - Primary See UA from office Will treat with atb today, Check urine culture Relevant Orders Urine culture (clean catch) Other fatigue Unclear etiology Check labs Other Visit Diagnoses Burning with urination Relevant Orders POCT Urinalysis dipstick (Completed) UTI symptoms Relevant Medications amoxicillin (Amoxil) 500 MG capsule Other Relevant Orders POCT Urinalysis dipstick (Completed) Fatigue, unspecified type Relevant Orders Hepatic function panel T4, free TSH CBC and differential Iron + transferrin + TIBC Ferritin Vitamin B12 Folate documented in this encounter Miscellaneous Notes * Addendum Note - Latosha Olmstead NP - 01/27/2025 2:40 PM EDTAddended by: LATOSHA OLMSTEAD on: 01/29/2025 08:41 AM Modules accepted: Orders documented in this encounter Plan of Treatment Upcoming Encounters Date Type Department Care Team (Late st Contact Info) Description 02/18/2025 1:40 PM EDT Office Visit [facility] [address] [place] [address] Latosha Olmstead NP [address] [place] [address] Scheduled Orders Name Type Priority Associated Diagnoses Orde r Schedule Basic metabolic panel Lab Routine Mixed hyperlipidemia Essential (primary) hypertension Type 2 diabetes mellitus with diabetic neuropathy, with long-term current use of insulin (HCC) Chronic kidney disease, stage 4 (severe) (HCC) 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 Type 2 diabetes mellitus with hyperglycemia, with long-term current use of insulin (HCC) Vitamin D deficiency Expected: 01/27/2025 (Approximate), Expires: 01/27/2026 Hepatic function panel Lab Routine Essential (primary) hypertension Chronic kidney disease, stage 4 (severe) (HCC) Fatigue, unspecified type Expected: 01/27/2025 (Approximate), Expires: 01/27/2026 Magnesium Lab Routine Chronic kidney disease, stage 4 (severe) (HCC) Expected: 01/27/2025 (Approximate), Expires: 01/27/2026 Phosphorus Lab Routine Chronic kidney disease, stage 4 (severe) (HCC) Expected: 01/27/2025 (Approximate), Expires: 01/27/2026 T4, free Lab Routine Fatigue, unspecified type Expected: 01/27/2025 (Approximate), Expires: 01/27/2026 TSH Lab Routine Fatigue, unspecified type Expected: 01/27/2025 (Approximate), Expires: 01/27/2026 CBC and differential Lab Routine Chronic kidney disease, stage 4 (severe) (HCC) Type 2 diabetes mellitus with hyperglycemia, with long-term current use of insulin (HCC) Fatigue, unspecified type Expected: 01/27/2025 (Approximate), Expires: 01/27/2026 Iron + transferrin + TIBC Lab Routine Fatigue, unspecified type Expected: 01/27/2025 (Approximate), Expires: 01/27/2026 Ferritin Lab Routine Fatigue, unspecified type Expected: 01/27/2025 (Approximate), Expires: 01/27/2026 Vitamin B12 Lab Routine Fatigue, unspecified type Expected: 01/27/2025 (Approximate), Expires: 01/27/2026 Folate Lab Routine Fatigue, unspecified type Expected: 01/27/2025 (Approximate), Expires: 01/27/2026 Vitamin D 25 hydroxy Lab Routine Chronic kidney disease, stage 4 (severe) ([facility]) Vitamin D deficiency Expected: 01/27/2025 (Approximate), Expires: 01/27/2026 URINARY TRACT INFECTION (HTRX) Lab Routine UTI symptoms Expected: 01/29/2025 (Approximate), Expires: 01/29/2026 documented as of this encounter Procedures Procedure Name Priority Date/Time Associated Diagnosis Comments POCT URINALYSIS DIPSTICK Routine 01/27/2025 3:57 PM EDT Burning with urination UTI symptoms documented in this encounter Results * (ABNORMAL) POCT Urinalysis dipstick (01/27/2025 3:57 PM EDT) Color, UA Light Yellow Clarity, UA Cloudy Glucose, UA Positive Negative - 2000(110) ++++ mg/dL Comment:250 Bilirubin, UA Negative Negative - 4(70) +++ mg/dL Ketones, UA Negative Negative - 160(16) ++++ mg/dL Spec Grav, UA 1.025 1 - 1.03 Blood, UA Positive Negative - 50 Kenneth/mcL Comment:moderate pH, UA 5.5 5 - 9 Protein, UA Positive Negative - 2000(20) ++++ mg/dL Comment:>=300 Urobilinogen, UA 0.2 0.2 - 12 mg/dL Leukocytes, UA Trace Negative - 500+++ Yuan/mcL Nitrite, UA Negative Negative - Positive Urine 01/27/2025 3:57 PM EDT Latosha Olmstead NP POINT OF CARE TEST ENTER/EDIT O RDERABLES Final Result documented in this encounter Visit Diagnoses Diagnosis Chronic kidney disease, stage 4 (severe) ([facility])- Primary Mixed hyperlipidemia Mixed hyperlipidemia Essential (primary) hypertension Unspecified essential hypertension Burning with urination Dysuria UTI symptoms Urinary tract infection symptoms Type 2 diabetes mellitus with diabetic neuropathy, with long-term current use of insulin ([facility]) History of neurogenic bladder Neurogenic bladder Neurogenic bladder, NOS 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 Hyperparathyroidism, unspecified ([facility]) Hyperparathyroidism, unspecified B12 deficiency Type 2 diabetes mellitus with hyperglycemia, with long-term current use of insulin ([facility]) Vitamin D deficiency Hypomagnesemia Disorders of magnesium metabolism Non compliance w medication regimen Fatigue, unspecified type documented in this encounter Additional Health Concerns Assessment Noted Time PHQ-9 Depression Total Score: 10 025 10:35 AM EDT documented as of this encounter Care Teams Sergeant Of Corrections Relationship Specialty Start Date End Date Kofi Gotti MD [address] [place] [address] PCP - General Family Medicine 06/20/24 Latosha Olmstead NP [address] [place] [address] Nurse Practitioner Family Medicine 06/11/24 Ninfa Canela MA Family Medicine 09/13/24 documented as of this encounter
--- OUTSIDE RECORDS SUMMARY | 2025-01-30 09:07 | XMS_ITS | Encounter Summary ---
Author Organization [facility] Address [address] [place] [address] Care Team Providers Care Statistical Consultant Name Role Phone Kofi Gotti MD Primary Care Provider [phone] Lissette Matamoros LPN Unavailable Unavailable Unallocated, Noms Provider Primary Care Provi emiliana Latosha Olmstead ABA THERAPIST Unavailable [phone] Kofi Gotti MD Primary Care Provider [phone] Ninfa Canela MA Unavailable Unavailable Encounter Details Date Type Department Care Team (Late st Contact Info) Description 11/02/2023 Orders Only [facility] [address] [place] [address] Latosha Olmstead, ABA THERAPIST [address] [place] [address] Type 2 diabetes mellitus with hyperglycemia, with long-term current use of insulin (HCC) (Primary Dx) Social History Tobacco Use Types Packs/Day Years [...] week 10/11/2023 How often do you attend chur ch or adventism services? Never 10/11/2023 Do you belong to any clubs o r organizations such as mandaeism groups, unions, fraternal or athletic groups, or [...] Date Recorded Patient Health Questionnaire-2 Score 2 10/11/2023 [employer] [place] of Occupat ionnd Health - Occupational Stress Questionnaire Answer Date [...] place to sleep or slept in a mcfp (including now)? No 10/11/2023 Comments Unknown Sex and Gender Information Value Date Recorded Sex Assigned at Not on file Legal Sex Female 6:55 PM EDT Gender Identity Not on file Sexual Orientation Not on file documented as of this encounter Plan of Treatment Upcoming Encounters Date Type Department Care Team (Late st Contact Info) Description 02/18/2025 1:40 PM EDT Office Visit [facility] [address] [place] [address] Latosha Olmstead NP [address] [place] [address] documented as of this encounter Visit Diagnoses Diagnosis Type 2 diabetes mellitus with hyperglycemia, with long-term current use of insulin (HCC)- Primary documented in this encounter Additional Health Concerns Assessment Noted Time PHQ-9 Depression Total Score: 6 10/11/19 24 3:16 PM EST documented as of this encounter Care Teams Statistical Consultant Relationship Specialty Start Date End Date Kofi Gotti MD [address] [place] [address] PCP - General Family Medicine 10/09/23 06/10/24 Unallocated, Noms MD Yuki [address] [place] [address] PCP - General Family Medicine 06/11/24 06/19/24 Kofi Gotti MD [address] [place] [address] PCP - General Family Medicine 06/20/24 Lissette Matamoros LPN Licensed Practical Nurse Family Medicine 01/22/2401/24/24 Latosha Olmstead NP [address] [place] [address] Nurse Practitioner Family Medicine 06/11/24 Ninfa Canela MA Family Medicine 09/13/24 documented as of this encounter
--- OUTSIDE RECORDS SUMMARY | 2025-01-30 09:08 | XMS_ITS | Encounter Summary ---
Author Organization [facility] tem Address [id number] [address] [place] [address] Care Team Providers Care Tectonophysicist Name Role Phone Latosha Olmstead MEDICAL ORDERLY-GOLF CADDY Primary Care Provider Reason for Visit * Reason Onset Date Comments Med Refill 03/12/2020 Encounter Details Date Type Department Care Team (Late st Contact Info) Description 03/12/2020 Refill [facility] [address] [place] [address] Sumi Linton, REY Complex regional pain syndrome type 1 of right upper extremity Social History Tobacco Use Types Packs/Day Years Used Date Smoking Tobacco: Never Smokeless Tobacco: Never Alcohol Use Standard Drinks/Week Comments No 0 (1 standard drink = 0.6 oz pur e alcohol) Childcare Answer Date Recorded Childcare Unknown 01/23/2019 Employment Answer Date Recorded Employment Unknown 01/23/2019 Comments No Sex and Gender Information Value Date Recorded Sex Assigned at Not on file Legal Sex Female 11:25 AM EDT Gender Identity Not on file Sexual Orientation Not on file COVID-19 Exposure Response Date Recorded In the last month, have you been in contact with someone who was confirmed or suspected to have Coronavirus / COVID-19? No / Unsure 03/10/2020 8:58 AM EDT documented as of this encounter Plan of Treatment Upcoming Encounters Date Type Department Care Team (Latest Contact Info) Description 02/07/2025 12:30 PM EDT Hospital Encounter [facility] - Pain Procedures [address] [place] [address] Joe Pedro MD [address] [place] [address] 02/07/2025 12:30 PM EDT - 02/07/2025 12:39 PM EDT Surgery [facility] - Pain Procedures [address] [place] [address] Joe Pedro MD [address] [place], [place] [phone] INJECTION BLOCK NERVE STELLATE GANGLION NECK [14148 (CPT )] 02/26/2025 11:15 AM EDT Office Visit [facility] [address] [place] [address] Gertrude Li PA-C [address] [facility], 2nd [address] [place], [place] [phone] Scheduled Procedures Name Priority Associated Diagnoses Date/Ti me INJECTION BLOCK NERVE STELLATE GANGLION NECK Reflex sympathetic dystrophy of right upper extremity 02/07/2025 12:30 PM EDT documented as of this encounter Visit Diagnoses Diagnosis Complex regional pain syndrome type 1 of right upper extremity Reflex sympathetic dystrophy of right upper extremity documented in this encounter Additional Health Concerns Infection Onset Date Last Indicated Resolved Time COVID-19 Positive 09/28/2021 09/28/2021 10/19/2021 11:12 PM EST documented as of this encounter Care Teams Tectonophysicist Relationship Specialty Start Date End Date Latosha Olmstead, MEDICAL ORDERLY-GOLF CADDY PCP - General Nurse Practitioner 11/10/22 documented as of this encounter
--- OUTSIDE RECORDS SUMMARY | 2025-01-30 09:08 | XMS_ITS | Clinical Summary ---
Author Organization [employer] tem Address [id number] [address] [place] [address] Care Team Providers Care Skinning Machine Feeder Name Role Phone Latosha Olmstead DOLL SURGEON-DAY CAMP UNIT LEADER Primary Care Provider Allergies Active Allergy Reactions Criticality Noted Date Comments Latex 02/05/2020 Added based on information entered during case entry, please review and add reactions, type, and severity as needed Medications budesonide-form oteroL (SYMBICORT) 80-4.5 mcg/actuation inhaler Active albuterol (PROVENTIL,VENT NEVILLE) 2.5 mg /3 mL (0.083 %) nebulizer solution Inhale 3 mL (2.5 mg total) by nebulization in the morning. And PRN. Active insulin aspart (NovoLOG) 100 unit/mL injection Please use your sliding scale 1 Box 1 06/08/20 17 Active metFORMIN (GLUCOPHAGE) 1000 mg tablet Take 1 tablet (1,000 mg total) by mouth in the morning and 1 tablet (1,000 mg total) in the evening. Take with meals. Active AMBULATORY COMPOUNDED MEDICATION Apply 120 g topically See Admin Instructions. Formula 8E Apply 1-2 grams topically to affected area three to four times daily 120 g 2 08/22/19 19 Active insulin glargine (LANTUS SOLOSTAR U-100 INSULIN) 100 unit/mL (3 mL) insulin pen Inject 30 Units under the skin 2 (two) times a day. 1 Box 12 08/14/20 20 Active ferrous sulfate 325 (65 FE) mg tablet Take 1 tablet (325 mg total) by mouth in the morning. 04/16/20 21 Active lisinopriL (PRINIVIL,ZESTR IL) 10 mg tablet Take 1 tablet (10 mg total) by mouth in the morning. Active metoprolol succinate XL (TOPROL XL) 50 mg 24 hr tablet Take 1 tablet (50 mg total) by mouth in the morning. 12/21/19 Active cyanocobalamin, vitamin B-12, (VITAMIN B-12) 1,000 mcg tablet extended release Take 1 tablet (1 mg total) by mouth in the morning. 06/14/20 Active denosumab (PROLIA) 60 mg/mL syringe injection Inject 1 mL (60 mg total) under the skin once. Active HYDROcodone-lorie taminophen (NORCO) 7.5-325 mg per tabletIndicatio ns:Reflex sympathetic dystrophy of right upper extremity Take 1 tablet by mouth 3 (three) times a day as needed for pain. 90 tablet 11/25/19 Active Additional Information Patient not taking.Reported on 01/15/2025 HYDROcodone-lorie taminophen (NORCO) 7.5-325 mg per tabletIndicatio ns:Reflex sympathetic dystrophy of right upper extremity Take 1 tablet by mouth 3 (three) times a day as needed for pain. 90 tablet 01/26/20 25 Active pregabalin (LYRICA) 150 mg capsuleIndicati ons:Complex regional pain syndrome type 1 of right upper extremity Take 1 capsule (150 mg total) by mouth in the morning and 1 capsule (150 mg total) at noon and 1 capsule (150 mg total) in the evening. 90 capsule 1 01/18/20 25 Active pregabalin (LYRICA) 150 mg capsuleIndicati ons:Complex regional pain syndrome type 1 of right upper extremity Take 1 capsule (150 mg total) by mouth in the morning and 1 capsule (150 mg total) at noon and 1 capsule (150 mg total) in the evening. 11/24/2024 filldate. 90 capsule 1 12/25/19 25 025 Discontin ued(Reord er) HYDROcodone-lorie taminophen (NORCO) 7.5-325 mg per tabletIndicatio ns:Reflex sympathetic dystrophy of right upper extremity Take 1 tablet by mouth 3 (three) times a day as needed for pain. 90 tablet 12/27/19 25 025 Discontin ued(Reord er) Active Problems Problem Noted Date Diagnosed Date Encounter for long-term opiate analgesic use Hyperglycemia 08/13/2020 Complex regional pain syndro me type 1 of right upper extremity 02/05/2020 Complex regional pain syndro me type 1 of right upper extremity 02/05/2020 Overview (02/05/2020): Added automatically from request for surgery [id number] Reflex sympathetic dystrophy of right upper extr emity 09/26/2017 Overview (09/26/2017): Added automatically from request for surgery [id number] Renal cyst 01/10/2017 Overview (01/10/2017): Enlarging left renal Bosniak 2 cyst confirmed on MRI 2014. No evidence of enhancement. Stable on followup ultrasound Encounters Date Type Department Care Team Description [facility] [address] [place] [address] Asia Barreto, REY Reflex sympathetic dystrophy of right upper extremity; Complex regional pain syndrome type 1 of right upper extremity 01/08/2025 12:15 PM EDT Office Visit [facility] [address] [place] [address] Gertrude Li, PROMISE Reflex sympathetic dystrophy of right upper extremity (Primary Dx) 01/08/2025 Travel 12/18/2024 Refill [facility] [address] [place] [address] Latosha Gray CNA Reflex sympathetic dystrophy of right upper extremity 11/15/2024 [facility] [address] [place] [address] Barbara Lucero, REY Reflex sympathetic dystrophy of right upper extremity 11/14/2024 [facility] [address] [place] [address] Lila Che, REY Reflex sympathetic dystrophy of right upper extremity; Complex regional pain syndrome type 1 of right upper extremity from Last 3 Months Immunizations No known immunizations Family History Medical History Relation Name Comments Cancer Father LUNG Heart attack Mother Rheum arthritis Mother Stroke Mother Relation Name Status Comments Father Mother Alive Social History Tobacco Use Types Packs/Day Years Used Date Smoking Tobacco: Never Smokeless Tobacco: Never Tobacco Cessation:Counseling Given: Not Answered Alcohol Use Standard Drinks/Week Comments No 0 (1 standard drink = 0.6 oz pur e alcohol) Social Connection and Isolat ion Panel [NHANES] Answer Date Recorded In a typical week, how many times do you talk on the phone with family, friends, or neighbors? More than three times a week 08/13/2020 How often do you get togethe r with friends or relatives? More than three times a week 08/13/2020 How often do you attend chur ch or evangelical services? Patient declined 08/13/2020 Do you belong to any clubs o r organizations such as mormon groups, unions, fraternal or athletic groups, or school groups? Patient declined 08/13/2020 How often do you attend meet ings of the clubs or organizations you belong to? Patient declined 08/13/2020 Are you , , di vorced, , never , or living with a partner? 08/13/2020 Overall Financial Resource Strain (CARDIA) Answe r Date Recorded How hard is it for you to pa y for the very basics like food, housing, medical care, and heating? Not very hard 08/13/2020 PRAPARE - Transportation Answer Date Re corded In the past 12 months, has l ack of transportation kept you from medical appointments or from getting medications? Patient declined 08/13/2020 In the past 12 months, has l ack of transportation kept you from meetings, work, or from getting things needed for daily living? Patient declined 08/13/2020 Childcare Answer Date Recorded Do problems getting child ca re make it difficult for you to work or study? No 08/13/2020 Employment Answer Date Recorded Do you need help finding a l ocal career center and/or a training program? No 08/13/2020 Hunger Screening Answer Date Recorded Within the past 12 months we worried whether our food would run out before we got money to buy more. Never True 01/08/2025 Within the past 12 months th e food we bought just didn't last and we didn't have money to get more. Never True 01/08/2025 Purpose - Life Answer Date Recorded Purpose and direction in life Unknown Comments No Sex and Gender Information Value Date Recorded Sex Assigned at Not on file Legal Sex Female 11:25 AM EDT Gender Identity Not on file Sexual Orientation Not on file Last Filed Vital Signs Vital Sign Reading Time Taken Comments Blood Pressure 137/71 01/08/2025 12:01 PM EDT Pulse 70 01/08/2025 12:01 PM EDT Temperature 36.1 C (96.9 F) 03/15/2024 9:17 AM EDT Respiratory Rate 18 01/08/2025 12:01 PM EDT Oxygen Saturation 100% 01/08/2025 12:01 PM EDT Inhaled Oxygen Concentration - - Weight 59.4 kg (131 lb) 01/08/2025 12:01 PM EDT Height 152.4 cm (5') 01/08/2025 12:01 PM EDT Body Mass Index 25.58 01/08/2025 12:01 PM EDT Plan of Treatment Upcoming Encounters Date Type Department Care Team (Latest Contact Info) Description 02/07/2025 12:30 PM EDT Hospital Encounter [facility] - Pain Procedures [address] [place] [address] Joe Pedro MD [address] [place], [place] [address] 02/07/2025 12:30 PM EDT - 02/07/2025 12:39 PM EDT Surgery [facility] - Pain Procedures [address] [place] [address] Joe Pedro MD [address] [facility] [place] [phone] INJECTION BLOCK NERVE STELLATE GANGLION NECK [03884 (CPT )] 02/26/2025 11:15 AM EDT Office Visit [facility] [address] [place] [address] Gertrude Li PA-C [address], [address] [place] [address] Scheduled Procedures Name Priority Associated Diagnoses Date/Ti me INJECTION BLOCK NERVE STELLATE GANGLION NECK Reflex sympathetic dystrophy of right upper extremity 02/07/2025 12:30 PM EDT Health Maintenance Due Date Last Done Comments Depression Screening 1970 Adult BMI Follow Up Plan 1976 DTaP,Tdap and Td Vaccines (1 - Tdap) 1977 Zoster (Shingles) Vaccine (1 of 2) 2008 Fall Risk Screening 2023 COVID-19 Vaccine (2023-2 5 season) 2024 04/02/2021, 03/02/2021, 12/07/2020 Influenza Vaccine 04/21/2025 06/03/2016 Adult BMI Screening 01/08/2026 01/08/2025 Tobacco Screening 01/08/2026 01/08/2025 Medical Devices Implanted Type Area Enrobing Machine Feeder Device Identifier Shelf Expiration Date Model / Serial / Lot Cervical Fusion Hardware Left Ankle Orif Explanted Type Area Enrobing Machine Feeder Device Identifier Shelf Expiration Date Model / Serial / Lot Scs Insurance [employer] MEDICARE [facility] Care Teams Skinning Machine Feeder Relationship Specialty Start Date End Date Latosha Olmstead, DOLL SURGEON-DAY CAMP UNIT LEADER PCP - General Nurse Practitioner 11/10/22
--- OUTSIDE RECORDS SUMMARY | 2025-01-30 09:08 | XMS_ITS | Encounter Summary ---
Author Organization [facility] Address [address] [place] [address] Care Team Providers Care Pocket Grinder Operator Name Role Phone Kofi Gotti MD Primary Care Provider [phone] Unallocated, Jah Provider Primary Care Provi emiliana Latosha Olmstead SUPERVISOR BRIDGES AND BUILDINGS Unavailable [phone] Kofi Gotti MD Primary Care Provider [phone] Ninfa Canela MA Unavailable Unavailable Encounter Details Date Type Department Care Team (Late st Contact Info) Description 04/18/2024 Orders Only [facility] [address] [place] [address] Latosha Olmstead, SUPERVISOR BRIDGES AND BUILDINGS [address] [place] [address] Social History Tobacco Use Types Packs/Day Years [...] often do you attend chur ch or holiness services? Never 10/11/2023 Do you belong to any clubs o r organizations such as quaker groups, unions, fraternal or athletic groups, or [...] Date Recorded Patient Health Questionnaire-2 Score 2 01/17/2024 [facility] - Occupational Stress [...] place to sleep or slept in a long term (including now)? No 10/11/2023 Comments Unknown Sex and Gender Information Value Date Recorded Sex Assigned at Not on file Legal Sex Female 6:55 PM EDT Gender Identity Not on file Sexual Orientation Not on file documented as of this encounter Plan of Treatment Upcoming Encounters Date Type Department Care Team (Late st Contact Info) Description 02/18/2025 1:40 PM EDT Office Visit [facility] [address] [place] [address] Latosha Olmstead NP [address] [place] [address] documented as of this encounter Procedures Procedure Name Priority Date/Time Associated Diagnosis Comments XR CHEST 2 VIEWS Routine 04/18/2024 8:57 AM EDT documented in this encounter Results * XR chest 2 views (04/18/2024 8:57 AM EDT) Anatomical Region Laterality Modality Chest Radiographic Cristiana ging us Latosha Olmstead NP IMG XR PROCEDURES Final Result documented in this encounter Visit Diagnoses Not on filedocumented in this encounter Additional Health Concerns Assessment Noted Time PHQ-9 Depression Total Score: 6 10/11/19 24 3:16 PM EST documented as of this encounter Care Teams Pocket Grinder Operator Relationship Specialty Start Date End Date Kofi Gotti MD [address] [place] [address] PCP - General Family Medicine 10/09/23 06/10/24 Unallocated, Noms Provider, [address] [place] [address] PCP - General Family Medicine 06/11/24 06/19/24 Kofi Gotti MD [address] [place] [address] PCP - General Family Medicine 06/20/24 Latosha Olmstead NP [address] [place] [address] Nurse Practitioner Family Medicine 06/11/24 Ninfa Canela MA Family Medicine 09/13/24 documented as of this encounter
--- OUTSIDE RECORDS SUMMARY | 2025-01-30 09:08 | XMS_ITS | Encounter Summary ---
Author Organization [employer] tem Address [id number] [address] [place] [address] Care Team Providers Care Cuff Cutter Name Role Phone Latosha Olmstead FLOOR PLAN ADJUSTER-PATIENT SUPPORT PARTNER Primary Care Provider Encounter Details Date Type Department Care Team (Late st Contact Info) Description 03/09/2021 Abstract Tena Villafana [facility] - Medical Oncology [address] [place] [address] Aj Magdaleno MD [address] [place] [address] [address] [place] [address] Social History Tobacco Use Types Packs/Day Years [...] often do you attend chur ch or jehovah's witness services? Patient declined 08/13/2020 Do you belong to any clubs o r organizations such as yazdanism groups, unions, fraternal or athletic groups, or [...] Recorded Do you need help finding a [facility] career center and/or a training program? No 08/13/2020 Purpose - Life Answer Date Recorded Purpose [...] Description 02/07/2025 12:30 PM EDT Hospital Encounter [facility] - Pain Procedures [address] [place] [address] Joe Pedro MD [address], [place] [phone] 02/07/2025 12:30 PM EDT - 02/07/2025 12:39 PM EDT Surgery [facility] - Pain Procedures [address] [place] [address] Joe Pedro MD [address], [place] [phone] INJECTION BLOCK NERVE STELLATE GANGLION NECK [18258 (CPT )] 02/26/2025 11:15 AM EDT Office Visit [facility] Management [facility] [address] [place] [address] Gertrude Li PA-C [address] [place] [address] Scheduled Procedures Name Priority Associated Diagnoses Date/Ti me INJECTION BLOCK NERVE STELLATE GANGLION NECK Reflex sympathetic dystrophy of right upper extremity 02/07/2025 12:30 PM EDT documented as of this encounter Visit Diagnoses Not on filedocumented in this encounter Additional Health Concerns Infection Onset Date Last Indicated Resolved Time COVID-19 Positive 09/28/2021 09/28/2021 10/19/2021 11:12 PM EST documented as of this encounter Care Teams Cuff Cutter Relationship Specialty Start Date End Date Latosha Olmstead, FLOOR PLAN ADJUSTER-PATIENT SUPPORT PARTNER PCP - General Nurse Practitioner 11/10/22 documented as of this encounter
--- OUTSIDE RECORDS SUMMARY | 2025-01-30 09:08 | XMS_ITS | Encounter Summary ---
Author Organization [facility] Address [id number] [address] [place] [address] Care Team Providers Care Footwear Sales Leader Name Role Phone Latosha Olmstead CARPENTRY SPECIALIST-COMPRESSOR TECHNICIAN Primary Care Provider Reason for Visit * Reason Onset Date Comments Med Refill 07/10/2020 Med Refill 07/28/2020 Encounter Details Date Type Department Care Team (Late st Contact Info) Description 07/10/2020 Refill [facility] [address] [place] [address] Lila Che RN Complex regional pain syndrome type 1 of [...] have Coronavirus / COVID-19? No / Unsure 06/10/2020 1:13 PM EDT documented as of this encounter Miscellaneous Notes * Telephone Encounter - Lila Che RN - 07/10/2020 12:15 PM EST Last Office Visit: 06/10/20 Next Office Visit: 07/22/2020 Last Urine Drug Screen: Lab Results Component Value Date BENZOSCRN Negative 05/14/2020 OARRS appropriate Lila Che RN 07/10/20 1221 * Telephone Encounter - Barbara Lucero RN - 07/10/2020 12:15 PM EST 9:51 AM RX called in to [facility] in [place]. Barbara Lucero RN 07/13/20 0951 documented in this encounter Plan of Treatment Upcoming Encounters Date Type Department Care Team (Latest Contact Info) Description 02/07/2025 12:30 PM EDT Hospital Encounter [facility] - [facility] [address] [place] [address] Joe Pedro MD [address] [place] [address] 02/07/2025 12:30 PM EDT - 02/07/2025 12:39 PM EDT Surgery [facility] - [facility] [address] [place] [address] Joe Pedro MD [address] [place] [address] INJECTION BLOCK NERVE STELLATE GANGLION NECK [82423 (CPT )] 02/26/2025 11:15 AM EDT [facility] [address] [place] [address] Gertrude Li PA-C [address] [facility], [address] [place] [address] Scheduled Procedures Name Priority Associated Diagnoses Date/Ti [...] documented as of this encounter Care Teams Footwear Sales Leader Relationship Specialty Start Date End Date Latosha Olmstead, CARPENTRY SPECIALIST-COMPRESSOR TECHNICIAN PCP - General Nurse Practitioner 11/10/22 documented as of this encounter
--- OUTSIDE RECORDS SUMMARY | 2025-01-30 09:08 | XMS_ITS | Encounter Summary ---
Author Organization [facility] [employer] [facility] tem Address [id number] [address] [place] [address] Care Team Providers Care Tenant Relations Coordinator Name Role Phone Latosha Olmstead WEAPONS SPECIALIST-INFANTRY ASSAULTMAN Primary Care Provider Reason for Visit * Reason Onset Date Comments Med Refill 10/05/2018 Encounter Details Date Type Department Care Team (Late st Contact Info) Description 10/05/2018 Refill [facility] - Pain Management Clinic [address] [place] [address] Barbara Lucero RN Reflex sympathetic dystrophy of right upper extremity Social History Tobacco Use Types Packs/Day Years Used Date Smoking Tobacco: Never Smokeless Tobacco: Never Alcohol Use Standard Drinks/Week Comments No 0 (1 standard drink = 0.6 oz pur e alcohol) Comments No Sex and Gender Information Value Date Recorded Sex Assigned at Not on file Legal Sex Female 11:25 AM EDT Gender Identity Not on file Sexual Orientation Not on file documented as of this encounter Plan of Treatment Upcoming Encounters Date Type Department Care Team (Latest Contact Info) Description 02/07/2025 12:30 PM EDT Hospital Encounter [facility] - Pain Procedures [address] [place] [address] Joe Pedro MD [address], [place] [id number] 02/07/2025 12:30 PM EDT - 02/07/2025 12:39 PM EDT Surgery [facility] - Pain Procedures [address] [place] [address] Joe Pedro MD [address] [place] [address] INJECTION BLOCK NERVE STELLATE GANGLION NECK [31293 ([facility] )] 02/26/2025 11:15 AM EDT Office Visit [facility] - Pain Management Clinic [address] [place] [phone] Gertrude Li PAJuan JoseC [address] [facility], 2nd Floor [place], [place] [id number] Scheduled Procedures Name Priority Associated Diagnoses Date/Ti me INJECTION BLOCK NERVE STELLATE GANGLION NECK Reflex sympathetic dystrophy of right upper extremity 02/07/2025 12:30 PM EDT documented as of this encounter Visit Diagnoses Diagnosis Reflex sympathetic dystrophy of right upper extremity Reflex sympathetic dystrophy of right upper extremity documented in this encounter Additional Health Concerns Infection Onset Date Last Indicated Resolved Time COVID-19 Positive 09/28/2021 09/28/2021 10/19/2021 11:12 PM EST documented as of this encounter Care Teams Tenant Relations Coordinator Relationship Specialty Start Date End Date Latosha Olmstead, WEAPONS SPECIALIST-INFANTRY ASSAULTMAN PCP - General Nurse Practitioner 11/10/22 documented as of this encounter
--- OUTSIDE RECORDS SUMMARY | 2025-01-30 09:08 | XMS_ITS | Encounter Summary ---
Author Organization [facility] Address [address] [place] [address] Care Team Providers Care Inpatient Care Manager Rn Name Role Phone Kofi Gotti MD Primary Care Provider [phone] Unallocated, Jah Provider Primary Care Provi emiliana Latosha Olmstead FIRE WATCHMAN Unavailable [phone] Kofi Gotti MD Primary Care Provider [phone] Ninfa Canela MA Unavailable Unavailable Encounter Details Date Type Department Care Team (Late st Contact Info) Description 05/13/2024 Orders Only [facility] [address] [place] [address] Latosha Olmstead, FIRE WATCHMAN [address] [place] [address] Social History Tobacco Use Types Packs/Day Years [...] often do you attend chur ch or alevism services? Never 10/11/2023 Do you belong to any clubs o r organizations such as yazidi groups, unions, fraternal or athletic groups, or [...] Recorded Patient Health Questionnaire-2 Score 2 01/17/2024 [facility] - Occupational [...] place to sleep or slept in a senior care (including now)? No 10/11/2023 Comments Unknown Sex [...] Visit [facility] [address] [place] [address] Latosha Olmstead NP [address] [place] [address] documented as of this encounter Procedures Procedure Name Priority Date/Time Associated Diagnosis Comments SCANNED LABS Routine 05/13/2024 1:48 PM EDT documented in this encounter Results * SCANNED LABS (05/13/2024 1:48 PM EDT) us Latosha Olmstead NP LAB CHG PERFORMABLES Final Resu lt documented in this encounter Visit Diagnoses Not on filedocumented in this encounter Additional Health Concerns Assessment Noted Time PHQ-9 Depression Total Score: 6 10/11/19 24 3:16 PM EST documented as of this encounter Care Teams Inpatient Care Manager Rn Relationship Specialty Start Date End Date Kofi Gotti MD [address] [place] [address] PCP - General Family Medicine 10/09/23 06/10/24 Unallocated, [facility] Provider, [address] [place] [address] PCP - General Family Medicine 06/11/24 06/19/24 Kofi Gotti MD [address] [place] [address] PCP - General Family Medicine 06/20/24 Latosha Olmstead NP [address] [place] [address] Nurse Practitioner Family Medicine 06/11/24 Ninfa Canela MA Family Medicine 09/13/24 documented as of this encounter
--- OUTSIDE RECORDS SUMMARY | 2025-01-30 09:08 | XMS_ITS | Encounter Summary ---
Author Organization [facility] [employer] [facility] tem Address [id number] [address] [place] [address] Care Team Providers Care Chain Maker Hand Name Role Phone Latosha Olmstead HAND CANDLE MOLDER-CUSTOMER CONTACT SPECIALIST Primary Care Provider Encounter Details Date Type Department Care Team (Late st Contact Info) Description 04/26/2022 Telephone [facility] - Pain Management Clinic [address] [place] [address] Yesenia Burnett RN Social History Tobacco Use Types Packs/Day Years [...] often do you attend chur ch or religion services? Patient declined 08/13/2020 Do you belong to any clubs o r organizations such as roman catholic groups, unions, fraternal or athletic groups, or [...] Recorded Do you need help finding a [facility] and/or a training program? No 08/13/2020 Purpose - Life Answer Date Recorded Purpose and direction in life Unknown Comments No Sex and Gender Information Value Date Recorded Sex Assigned at Not on file Legal Sex Female 11:25 AM EDT Gender Identity Not on file Sexual Orientation Not on file documented as of this encounter Miscellaneous Notes * Telephone Encounter - Yesenia Burnett RN - 04/26/2022 10:32 AM EDT Call placed to [facility] re: prior auth request for pregabalin. News Reel Cameraman spoke with Paige andasked if script had been submitted through [facility]. Paige checks into this and verifies that script wentthrough [facility] and patient has $0 co-pay. documented in this encounter Plan of Treatment Upcoming Encounters Date Type Department Care Team (Latest Contact Info) Description 02/07/2025 12:30 PM EDT Hospital Encounter [facility] - Pain Procedures [address] [place] [address] Joe Pedro MD [address] [place] [address] 02/07/2025 12:30 PM EDT - 02/07/2025 12:39 PM EDT Surgery [facility] - Pain Procedures [address] [place] [address] Joe Pedro MD [address] [place] [address] INJECTION BLOCK NERVE STELLATE GANGLION NECK [47041 (CPT )] 02/26/2025 11:15 AM EDT Office Visit [facility] - Pain Management Clinic [address] [place] [address] Gertrude Li, PAJaya [address] [facility], 2[address] [place], [place] [phone] Scheduled Procedures Name Priority Associated Diagnoses Date/Ti me INJECTION BLOCK NERVE STELLATE GANGLION NECK Reflex sympathetic dystrophy of right upper extremity 02/07/2025 12:30 PM EDT documented as of this encounter Visit Diagnoses Not on filedocumented in this encounter Care Teams Chain Maker Hand Relationship Specialty Start Date End Date Latosha Olmstead, HAND CANDLE MOLDER-CUSTOMER CONTACT SPECIALIST PCP - General Nurse Practitioner 11/10/22 documented as of this encounter
--- OUTSIDE RECORDS SUMMARY | 2025-01-30 09:08 | XMS_ITS | Encounter Summary ---
Author Organization [facility] Address [address] [place] [address] Care Team Providers Care Comber Tender Name Role Phone Kofi Gotti MD Primary Care Provider [phone] Unallocated, Heraclios Provider Primary Care Provi emiliana Latosha Olmstead PARACHUTE TAPER Unavailable [phone] Kofi Gotti MD Primary Care Provider [phone] Ninfa Canela MA Unavailable Unavailable Encounter Details Date Type Department Care Team (Late st Contact Info) Description 04/17/2024 Clinisync Result Encounter [facility] External Department Unsolicited Latosha Olmstead, PARACHUTE TAPER [address] [place] [address] Social History Tobacco Use Types Packs/Day Years [...] often do you attend chur ch or adventist services? Never 10/11/2023 Do you belong to any clubs o r organizations such as islam groups, unions, fraternal or athletic groups, or [...] Recorded Patient Health Questionnaire-2 Score 2 01/17/2024 [facility] Occupat ional Health - Occupational Stress [...] place to sleep or slept in a skilled nursing (including now)? No 10/11/2023 Comments Unknown Sex and Gender Information Value Date Recorded Sex Assigned at Not on file Legal Sex Female 6:55 PM EDT Gender Identity Not on file Sexual Orientation Not on file documented as of this encounter Plan of Treatment Upcoming Encounters Date Type Department Care Team (Late st Contact Info) Description 02/18/2025 1:40 PM EDT Office Visit [facility] [address] [place] [address] Latosha Olmstead NP [address] [place] [address] documented as of this encounter Procedures Procedure Name Priority Date/Time Associated Diagnosis Comments MM TOMOSYNTHESIS SCREENING BI 04/17/2024 12:39 PM EDT documented in this encounter Results * MM TOMOSYNTHESIS SCREENING BI (04/17/2024 12:39 PM EDT) Anatomical Region Laterality Modality Other 04/17/2024 12:3 9 PM EDT Narrative 04/17/2024 12:40 PM EDT The [address] [address] Mammography Report Signed Patient: AISLINN CARNES MR#: [id number] : 1960 Acct:[id number] Age/Sex: 63 / F ADM Date: 04/17/24 Loc: MAMMO Attending Dr: Latosha Olmstead NP Ordering Physician: Latosha Olmstead NP Results: Date of Service: 04/17/24 Follow Up: Procedure(s): MM tomosynthesis screening BI Accession Number(s): [id number] cc: Latosha Olmstead NP Patient Name: AISLINN CARNES MR#: [id number] : 1960 Exam Date: 04/17/2024 Ordering Doctor: KIARA OLMSTEAD CNP RADIOLOGY REPORT PROCEDURE: MM TOMOSYNTHESIS SCREENING BI COMPARISON: MG MAMM SCREEN 3D ALINE CAD, 12/28/2022. INDICATIONS: Screening Calculator Name NCI Breast Cancer Risk Assessment Tool 5 Year Breast Cancer Risk 1.30% Lifetime Breast Cancer Risk 5.00% Personal Breast Cancer No Personal Ovarian Cancer No Treatments None Family Cancers Sister with ovarian cancer at age 31; Sister with renal cancer at age 40; Grandmother-maternal with brain cancer at age 60. LOCATION: The [facility] BREAST COMPOSITION: The breasts are heterogeneously dense,which may obscure small masses. FINDINGS: DIAGNOSTIC CATEGORY 2--BENIGN FINDING. NO CHANGE FROM COMPARISON. Scattered benign-appearing nodules are present. Scattered benign-appearing calcifications are present. Scattered benign-appearing lymph nodes are present. RIGHT BREAST: No significant suspicious finding. LEFT BREAST: No significant suspicious finding. RECOMMENDATIONS: ROUTINE MAMMOGRAM AND CLINICAL EVALUATION IN 12 MONTHS. PLEASE NOTE: A NORMAL MAMMOGRAM DOES NOT EXCLUDE THE POSSIBILITY OF BREAST CANCER. A CLINICALLY SUSPICIOUS PALPABLE LUMP SHOULD BE BIOPSIED. Dictated by: Sarwat Castle MD on 04/17/2024 at 12:38 Approved by: Sarwat Castle MD on 04/17/2024 at 12:39 Dictated By: Sarwat Castle M.D. Signed By: 04/17/24 1240 DD/ 1239 TD/TT: Director Of Accreditation: Procedure Note Radiology, Radiologist, - 04/17/2024 [place] [address] Mammography Report Signed Patient: AISLINN CARNES MMR#: [id number] : 1960cct:[id number] Age/Sex: 63 / FADM Date: 04/17/24 Loc: MAMMO Attending Dr: Latosha Olmstead PARACHUTE TAPER Ordering Physician: Latosha Olmstead NPResults: Date of Service: 04/17/24Follow Up: Procedure(s): MM tomosynthesis screening BI Accession Number(s): [id number] cc: Latosha Olmstead NP Patient Name: AISLINN CARNES MR#: [id number] : 1960 Exam Date: 04/17/2024 Ordering Doctor: KIARA OLMSTEAD INTERACTIVE ART DIRECTOR RADIOLOGY REPORT PROCEDURE: MM TOMOSYNTHESIS SCREENING BI COMPARISON: MG MAMM SCREEN 3D ALINE CAD, 12/28/2022. INDICATIONS: Screening Calculator Name NCI Breast Cancer Risk Assessment Tool 5 Year Breast Cancer Risk 1.30% Lifetime Breast Cancer Risk 5.00% Personal Breast Cancer No Personal Ovarian Cancer No Treatments None Family Cancers Sister with ovarian cancer at age 31; Sister with renal cancer at age 40; Grandmother-maternal with brain cancer at age 60. LOCATION: The [facility] BREAST COMPOSITION: The breasts are heterogeneously dense,which may obscure small masses. FINDINGS: DIAGNOSTIC CATEGORY 2--BENIGN FINDING. NO CHANGE FROM COMPARISON. Scattered benign-appearing nodules are present. Scatteredbenign-appearing calcifications are present. Scattered benign-appearing lymph nodes are present. RIGHT BREAST: No significant suspicious finding. LEFT BREAST: No significant suspicious finding. RECOMMENDATIONS: ROUTINE MAMMOGRAM AND CLINICAL EVALUATION IN 12 MONTHS. PLEASE NOTE: A NORMAL MAMMOGRAM DOES NOT EXCLUDE THE POSSIBILITY OFBREAST CANCER. A CLINICALLY SUSPICIOUS PALPABLE LUMP SHOULD BE BIOPSIED. Dictated by: Sarwat Castle MD on 04/17/2024 at 12:38 Approved by: Sarwat Castle MD on 04/17/2024 at 12:39 Dictated By: Sarwat Castle M.D. Signed By:04/17/24 1240 DD/ 1239 TD/TT: Director Of Accreditation: Latosha Olmstead NP [facility] Final Result documented in this encounter Visit Diagnoses Not on filedocumented in this encounter Additional Health Concerns Assessment Noted Time PHQ-9 Depression Total Score: 6 10/11/19 24 3:16 PM EST documented as of this encounter Care Teams Comber Tender Relationship Specialty Start Date End Date Kofi Gotti MD [address] [place] [phone] PCP - General Family Medicine 10/09/23 06/10/24 Unallocated, [facility] Provider, [address] [place] [address] PCP - General Family Medicine 06/11/24 06/19/24 Kofi Gotti MD [address] [place] [address] PCP - General Family Medicine 06/20/24 Latosha Olmstead NP [address] [place] [address] Nurse Practitioner Family Medicine 06/11/24 Ninfa Canela MA Family Medicine 09/13/24 documented as of this encounter
--- OUTSIDE RECORDS SUMMARY | 2025-01-30 09:08 | XMS_ITS | Clinical Summary ---
Author Organization [facility] Address [address] [place] [address] Care Team Providers Care Bag Bailer Name Role Phone Lisa Porras MD Unavailable Latosha Olmstead Primary Care Provider Unavailabl e Latosha Olmstead Unavailable Unavailable Allergies Active Allergy Reactions Criticality Noted Date Comments Latex Rash 02/05/2020 Added based on information entered during case entry, please review and add reactions, type, and severity as needed Medications albuterol HFA (PROVENTIL HFA, VENTOLIN HFA) 90 mcg/actuation inhaler Inhale 2 Puffs as instructed every 6 hours as needed for wheezing/shortness of breath. Active insulin glargine (LANTUS) 100 unit/mL injection Inject 25 Units subcutaneously daily at bedtime. 100 mL 1 Active insulin aspart (NOVOLOG FLEXPEN U-100 INSULIN SUBCUTANEOUS) Inject subcutaneously. Sliding scale Active FEROSUL 325 mg (65 mg iron) tablet Take 1 tablet by mouth three times daily with meals. 1 Active VITAMIN B-12 1,000 mcg tab Take 1,000 mcg by mouth once daily. 1 Active pregabalin (LYRICA) 150 mg capsule Take 1 capsule by mouth two times a day for 30 days. 4 Active metoprolol succinate ER (TOPROL XL) 50 mg 24 hr tablet Take 50 mg by mouth once daily. 4 Active insulin lispro (HUMALOG KWIKPEN) 100 unit/mL INJECT 4-6-8 UNITS SUBCUTANEOUSLY THREE TIMES DAILY plus sliding scale coverage 2 (TWO) (max DAILY dose OF 30 UNITS) 3 Active HYDROcodone-Ac etaminophen (NORCO) 7.5-325 mg per tablet Take 1 tablet by mouth. 3 Active denosumab (PROLIA) 60 mg/mL Inject 60 mg subcutaneously once every 6 months. Active amLODIPine (NORVASC) 5 mg tablet Take 5 mg by mouth once daily. 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 States checks BP at home and is usually normal to low Advised to continue to monitor at home and discuss with PCP Mild intermittent asthma without complication Assessment & Plan (06/06/2023 1:30 PM EDT): Assessment: uses Symbicort PRN, rare use Denies recent URI or wheezing History of TIA (transient ischemic attack) 06/06 Assessment & Plan (06/06/2023 1:30 PM EDT): Assessment: states has a TIA many years ago without residual No current AC Denies dizziness or syncope MVP (mitral valve prolapse) 06/06/2023 Assessment & Plan (06/07/2023 7:37 AM EDT): Assessment: states has very rare intermittent palpitations Denies chest pain No recent ECHO IESHA (iron deficiency anemia) 06/06/2023 Assessment & Plan (06/07/2023 7:37 AM EDT): Assessment: on iron supplement, stable CBC with diff: WBC 4.88 06/06/2023 RBC 4.68 06/06/2023 Hemoglobin 11.9 06/06/2023 Hematocrit 37.2 06/06/2023 MCV 79.5 06/06/2023 MCH 25.4 06/06/2023 MCHC 32.0 06/06/2023 RDW-CV 14.7 06/06/2023 Platelet Count 230 06/06/2023 Chronic pain due to trauma 06/06/2023 Assessment & Plan (06/06/2023 1:33 PM EDT): Assessment: has chronic right arm pain due to door falling on arm Has had surgeries. Follows with pain management at [facility]-- on Lyrica and [place] Neurogenic bladder 06/06/2023 Assessment & Plan (06/06/2023 1:32 PM EDT): Assessment: Previous had to self cath Gets botox injections and no longer has to cath Follows with Dr. Porras at [facility] Stage 3a chronic kidney disease 06/06/2023 Assessment & Plan (06/15/2023 1:18 PM EDT): Assessment: follows with nephrology at [facility] Repeat labs scanned Potassium 4.9 Cr 1.68 GFR 31 BG 303 BMP Latest Ref Rng & Units 06/06/2023 01/29/2021 01/21/2021 GLUCOSE 74 - 99 mg/dL 510(H) 150(H) 141(H) BUN 7 - 21 mg/dL 36(H) 16 42(H) CREATININE 0.58 - 0.96 mg/dL 1.81(H) 1.35 1.51(H) SODIUM 136 - 144 mmol/L 130(L) 139 131(L) POTASSIUM 3.7 - 5.1 mmol/L 5.9(H) 4.8 4.7 CHLORIDE 97 - 105 mmol/L 95(L) 105 99 CO2 22 - 30 mmol/L 24 23 25 ANION GAP 9 - 18 mmol/L 11 11 7(L) CALCIUM, TOTAL 8.5 - 10.2 mg/dL 8.9 8.9 8.8 eGFR >=60 mL/min/1.73m 31(L) 40(L) 35 EGFR- >60 - 48(L) 42 EGFR-ALL OTHER RACES >60 . - 40(L) 35 Type 2 diabetes mellitus wit h hyperglycemia, with long-term current use of insulin 06/06/2023 Assessment & Plan (06/15/2023 1:21 PM EDT): Assessment: on insulin managed by endocrinology at [facility], saw KIARA 06/08 and had insulin increased. OV scanned Hemoglobin A1C (%) Date Value 06/06/[address] Ballard notified of elevated BG Anesthesia team also notified. Per Dr. De Jesus... no further testing needed. We will evaluate on the day of surgery. Please make sure patient take at least half of basal insulin the day prior to surgery Bladder outlet obstruction 01/29/2021 Severe protein-calorie malnutrition 01/19/2021 Ureterolithiasis 01/17/2021 Acute bilateral obstructive uropathy 01/17/2021 Generalized weakness 01/17/2021 Falls frequently 01/17/2021 Resolved Problems Problem Noted Date Diagnosed Date Resolved Date Fever 08/31/2023 09/04/2023 Urinary tract infection without hematuria 08/31/2023 09/04/2023 Acute cystitis without hematuria 01/18/2021 01/21/2021 Pyelonephritis 01/17/2021 01/21/2021 Sepsis 01/17/2021 01/21/2021 Hyponatremia 01/17/2021 01/21/2021 Hyperkalemia 01/17/2021 09/04/2023 ANATOLIY (acute kidney injury) 01/17/2021 Hydronephrosis due to obstruction of ureter 01/17/2021 01/21/2021 Immunizations Immunization Administration Dates Next Due COVID-19 original vaccine, f ull dose, monovalent (MODERNA) 12/07/2020 influenza (IIV3) vaccine, tr ivalent, PF (AFLURIA, FLUARIX, FLULAVAL, FLUVIRIN, FLUZONE) 06/03/2016 Family History Medical History Relation Comments Difficulty with anesthesia No Family History Social History Tobacco Use Types Packs/Day Years Used Date Smoking Tobacco: Never Smokeless Tobacco: Never Tobacco Cessation:Counseling Given: Not Answered Alcohol Use Standard Drinks/Week Comments Yes 0 (1 standard drink = 0.6 oz pur e alcohol) rarely--holiday or special occ Overall Financial Resource Strain (CARDIA) Answe r Date Recorded How hard is it for you to pa y for the very basics like food, housing, medical care, and heating? Patient declined 08/31/2023 Hunger Vital Sign Answer Date Recorded Within the past 12 months, y ou worried that your food would run out before you got the money to buy more. Patient declined Within the past 12 months, t he food you bought just didn't last and you didn't have money to get more. Patient declined 06/2024 PRAPARE - Transportation Answer Date Re corded In the past 12 months, has l ack of transportation kept you from medical appointments or from getting medications? Patient declined 08/31/2023 In the past 12 months, has l ack of transportation kept you from meetings, work, or from getting things needed for daily living? Patient declined 08/31/2023 Housing Stability Vital Sign Answer Mamadou e Recorded In the last 12 months, was t here a time when you were not able to pay the mortgage or rent on time? Patient refused 08/31/19 24 Number of Places Lived in the Last Year Not on f ile 08/31/2023 In the last 12 months, was t here a time when you did not have a steady place to sleep or slept in a half-way (including now)? Patient refused 08/31/2023 Housing Stability Vital Sign Answer Mamadou e Recorded In the last 12 months, was t here a time when you were not able to pay the mortgage or rent on time? Patient refused 08/31/19 24 Number of Times Moved in the Last Year Not on fi le 08/31/2023 Homeless in the Last Year Not on file 2023 Area Deprivation Index Answer Date Al rded National Score (1-100), lower number is lower ri sk 89 05/17/2023 State Score (1-10), lower number is lower risk 8 05/17/2023 Data from: https://www.neighborhoodatlas.medicine.[facility].edu/. Last address used for calculation [address] 05/17/2023 Comments No Sex and Gender Information Value Date Recorded Sex Assigned at Not on file Legal Sex Female 10:26 AM EDT Gender Identity Not on file Sexual Orientation Not on file Last Filed Vital Signs Vital Sign Reading Time Taken Comments Blood Pressure 173/96 05/01/2024 10:45 AM EDT Pulse 74 05/01/2024 10:45 AM EDT Temperature 36.8 C (98.2 F) 09/04/2023 4:43 AM EST Respiratory Rate 16 09/04/2023 4:43 AM EST Oxygen Saturation 97% 09/04/2023 6:51 AM EST Inhaled Oxygen Concentration - - Weight 56.7 kg (125 lb) 03/26/2024 10:48 AM EDT VERBAL Height 152.4 cm (5') 09/01/2023 6:11 AM EST Body Mass Index 24.41 09/01/2023 6:11 AM EST Plan of Treatment Health Maintenance Due Date Last Done Comments Diabetic Foot Exam 1968 Dilated Retinal Exam 1968 Annual PCP Team Chronic Dise ase Visit 1976 Anxiety Screening 1976 Depression Screening 1976 Hepatitis C Screening 1976 LDL Cholesterol 1976 zzBP Controlled (<130/80) (Retired) 1976 DTaP,Tdap,Td Vaccine (1 - Tdap) 1977 Pneumococcal Vaccine: 50+ (1 of 2 - PCV) 1977 CT Colonography 2003 Colonoscopy 2003 Fecal Occult Blood 2003 Sigmoidoscopy 2003 Shingrix Vaccine (1 of 2) 2008 RSV Vaccine (1 - Risk 60-74 years 1-dose series) 2018 Bone Density Screening 2023 HbA1C 09/06/2023 06/06/2023, 05/21, 11/10/2022, Additional history exists Urine Albumin:Creatinine Ratio 04/04/2024 04/04/2023 Covid-19 Vaccine (4 - 2023-2 5 season) 2024 04/02/2021, 03/02/2021, 12/07/2020 Advance Directive Discussion 08/21/2024 Hemoglobin/Hematocrit 09/03/2024 09/03/2023 , 09/02/2023, 09/01/2023, Additional history exists Serum Creatinine 01/31/2025 02/01/2024, , 09/02/2023, Additional history exists Mammogram Screening 04/17/2025 04/17/2024 Influenza Vaccine (Season Ended) 2025 06/03/20 16 Cologuard (FIT-DNA) 04/28/2026 04/28/2023 Colorectal Cancer Screening 04/28/2026 Procedures Procedure Name Priority Date/Time Associated Diagnosis Comments CREATININE BLD Routine 02/01/2024 2:29 PM EDT Other hydronephrosis CBC AUTO WO DIFF Routine 09/03/2023 4:41 AM EST HEMOGLOBIN A1C Routine 06/06/2023 1:29 PM EDT Preop examination from Last 3 Months or Most Recently Relevant to Health Maintenance Results * (ABNORMAL) CREATININE BLD (02/01/2024 2:29 PM EDT) Creatinine 1.78(H) 0.58 - 0.96 mg/dL 02/01/2024 2:49 PM EDT [facility] Estimated Glomerular Filtration Rate 31(L) >=60 mL/min/1.7 3m 02/01/2024 2:49 PM EDT [facility] Comment:Estimated Glomerular Filtration Rate (eGFR) is calculated using the 2020 CKD-EPI creatinine equation. This equation utilizes serum creatinine, sex, and age as parameters. The creatinine assay has traceable calibration to isotope dilution- mass spectrometry. Refer to KDIGO guidelines for clinical interpretation. In patients with unstable renal function, e.g. those with acute kidney injury, the eGFR may not accurately reflect actual GFR. Blood BLOOD SPECIMEN / Unknown Venipuncture / Unknown 02/01/2024 2:29 PM EDT 02/01/2024 2:29 PM EDT us Manolo Ballard MD LABORATORY Final Resul t [facility] [address] [place] [address] * (ABNORMAL) CBC (09/03/2023 4:41 AM EST) WBC 6.44 3.70 - 11.00 k/uL 09/03/2023 5:16 AM [facility] RBC 3.70(L) 3.90 - 5.20 m/uL 09/03/2023 5:16 AM [facility] Hemoglobin 8.9(L) 11.5 - 15.5 g/dL 09/03/2023 5:16 AM [facility] Hematocrit 28.7(L) 36.0 - 46.0 % 09/03/2023 5:16 AM [facility] MCV 77.6(L) 80.0 - 100.0 fL 09/03/2023 5:16 AM [facility] MCH 24.1(L) 26.0 - 34.0 pg 09/03/2023 5:16 AM [facility] MCHC 31.0 30.5 - 36.0 g/dL 09/03/2023 5:16 AM [facility] RDW-CV 14.6 11.5 - 15.0 % 09/03/2023 5:16 AM [facility] Platelet Count 334 150 - 400 k/uL 09/03/2023 5:16 AM [facility] MPV 10.8 9.0 - 12.7 fL 09/03/2023 5:16 AM [facility] Absolute nRBC <0.01 <0.01 k/uL 09/03/2023 5:16 AM [facility] Blood BLOOD SPECIMEN / Unknown Venipuncture / Unknown 09/03/2023 4:41 AM EST 09/03/2023 5:08 AM EST us Luis Barrow MD LABORATORY Final Result [facility] [address] [place] [address], * (ABNORMAL) HGB A1C (06/06/2023 1:29 PM EDT) Hemoglobin A1C 13.3(H) 4.3 - 5.6 % 06/07/2023 5:04 AM EDT [facility] Comment:Italian Diabetes As sociation guidelines indicate that patients with HgbA1c in the range 5.7-6.4% are at increased risk for development of diabetes, and intervention by lifestyle modification may be beneficial. HgbA1c greater or equal to 6.5% is considered diagnostic of diabetes. Estimated Average Glucose 335 mg/dL 06/07/2023 5:04 AM EDT [facility] Comment:eAG: (Estimated aver age glucose) is a calculated value from HgbA1c and is member services representative of the average blood glucose level in the last 2-3 month period. Blood BLOOD SPECIMEN / Unknown Venipuncture / Unknown 06/06/2023 1:29 PM EDT 06/06/2023 1:30 PM EDT us Jenny Batres [employer] LABORATORY Final Res ult [facility] [address] [place] [address], [place] from Last 3 Months or Most Recently Relevant to Health Maintenance Insurance [employer] Care Teams Bag Bailer Relationship Specialty Start Date End Date Latosha Olmstead [address] [place] [address] PCP - General 05/17/23 Lisa Porras MD [address] [place] [address] Referring Urology 05/11/23 Latosha Olmstead [address] [place] [address] Referring 01/04/24
--- OUTSIDE RECORDS SUMMARY | 2025-01-30 09:08 | XMS_ITS | Encounter Summary ---
Author Organization [facility] Address [address] [place] [address] Care Team Providers Care Traffic Director Name Role Phone Kofi Gotti MD Primary Care Provider [phone] Unallocated, Heraclios Provider Primary Care Provi emiliana Latosha Olmstead DIRECTOR OF CLAIMS Unavailable [phone] Kofi Gotti MD Primary Care Provider [phone] Ninfa Canela MA Unavailable Unavailable Encounter Details Date Type Department Care Team (Late st Contact Info) Description 04/18/2024 Clinisync Result Encounter [facility] External Department Unsolicited Latosha Olmstead, DIRECTOR OF CLAIMS [address] [place] [phone] Social History Tobacco Use Types Packs/Day Years [...] often do you attend chur ch or sabianism services? Never 10/11/2023 Do you belong to any clubs o r organizations such as taoist groups, unions, fraternal or athletic groups, or [...] Recorded Patient Health Questionnaire-2 Score 2 01/17/2024 [facility] - Occupational [...] place to sleep or slept in a usp (including now)? No 10/11/2023 Comments Unknown Sex [...] Office Visit [facility] [address] [place] [address] Latosha Olmstead NP [address] [place] [address] documented as of this encounter Procedures Procedure Name Priority Date/Time Associated Diagnosis Comments XR CHEST 2V 04/18/2024 7:06 AM EDT documented in this encounter Results * XR CHEST 2V (04/18/2024 7:06 AM EDT) Anatomical Region Laterality Modality Other 04/18/2024 7:06 AM EDT Narrative 04/18/2024 7:08 AM EDT [address] [address] XRay Report Signed Patient: AISLINN CARNES MR#: [id number] : 1960 Acct:[id number] Age/Sex: 63 / F ADM Date: 04/17/24 Loc: MAMMO Attending Dr: Latosha Olmstead DIRECTOR OF CLAIMS Ordering Physician: Latosha Olmstead NP Date of Service: 04/17/24 Procedure(s): XR chest 2V Accession Number(s): [id number] cc: Latosha Olmstead NP [place] [address] Patient Name: AISLINN CARNES MRN: [id number] date: 1960 Sex: F Assigned Patient Location: [facility] Current Patient Location: Accession/Order Number: [id number] Exam Date: 04/17/2024 10:34 Report Date: 04/18/2024 07:06 At the request of: LATOSHA OLMSTEAD Procedure: XR chest 2V PROCEDURE: XR chest 2V DATE: 04/17/2024 9:34 AM CDT COMPARISONS: 01/10/2024 CLINICAL INDICATION: 63 years Female Chronic Cough R05.3 FINDINGS: The cardiomediastinal silhouette and pulmonary vasculature are within normal limits. The lungs are clear. There is no evidence of pleural effusion or pneumothorax. XR/XR chest 2V IMPRESSION: Chest radiograph is within normal limits. Electronically authenticated by: KIT KULKARNI Date: 04/18/2024 07:06 Dictated By: Kit Kulkarni M.D. Signed By: 04/18/24 0708 DD/ 0706 TD/TT: Social Science Analyst: Procedure Note Radiology, Radiologist, MD - 04/18/2024 [facility] [place] [id number] XRay Report Signed Patient: AISLINN CARNES MMR#: [id number] : 1960cct:[id number] Age/Sex: 63 / FADM Date: 04/17/24 Loc: MAMMO Attending Dr: Latosha Olmstead DIRECTOR OF CLAIMS Ordering Physician: Latosha Olmstead NP Date of Service: 04/17/24 Procedure(s): XR chest 2V Accession Number(s): [id number] cc: Latosha Olmstead NP [address] [address] Patient Name: AISLINN CARNES MRN: [facility]:[id number] date: 1960 Sex: F Assigned Patient Location: MAMMO Current Patient Location: Accession/Order Number: [id number] Exam Date: 04/17/2024 10:34 Report Date: 04/18/2024 07:06 At the request of: LATOSHA OLMSTEAD Procedure: XR chest 2V PROCEDURE: XR chest 2V DATE: 04/17/2024 9:34 AM CDT COMPARISONS: 01/10/2024 CLINICAL INDICATION: 63 years Female Chronic Cough R05.3 FINDINGS: The cardiomediastinal silhouette and pulmonary vasculature are withinnormal limits. The lungs are clear. There is no evidence of pleural effusion or pneumothorax. XR/XR chest 2V IMPRESSION: Chest radiograph is within normal limits. Electronically authenticated by: KIT KULKARNI Date: 04/18/2024 07:06 Dictated By: Kit Kulkarni M.D. Signed By:04/18/24 0708 DD/ 0706 TD/TT: Social Science Analyst: Latosha Olmstead NP [facility] Final Result documented in this encounter Visit Diagnoses Not on filedocumented in this encounter Additional Health Concerns Assessment Noted Time PHQ-9 Depression Total Score: 6 10/11/19 24 3:16 PM EST documented as of this encounter Care Teams Traffic Director Relationship Specialty Start Date End Date Kofi Gotti MD [address] [place] [address] PCP - General Family Medicine 10/09/23 06/10/24 Unallocated, [facility] [place] [address] PCP - General Family Medicine 06/11/24 06/19/24 Kofi Gotti MD [address] [place] [phone] PCP - General Family Medicine 06/20/24 Latosha Olmstead NP [address] [place] [phone] Nurse Practitioner Family Medicine 06/11/24 Ninfa Canela MA Family Medicine 09/13/24 documented as of this encounter
--- OUTSIDE RECORDS SUMMARY | 2025-01-30 09:08 | XMS_ITS | Encounter Summary ---
Author Organization [facility] tem Address [id number] [address] [place] [address] Care Team Providers Care Grain Inspector Name Role Phone Latosha Olmstead STORE SALES MANAGER-MEDIA ASSOCIATE Primary Care Provider Reason for Visit * Reason Onset Date Comments Med Refill 01/15/2025 Encounter Details Date Type Department Care Team (Late st Contact Info) Description 01/15/2025 Refill [facility] [address] [place] [address] Asia Barreto, RN Reflex sympathetic dystrophy of right upper extremity; [...] often do you attend chur ch or yazidi services? Patient declined 08/13/2020 Do you belong to any clubs o r organizations such as rastafari groups, unions, fraternal or athletic groups, or [...] Recorded Do you need help finding a [employer] career center and/or a training program? No [...] encounter Miscellaneous Notes * Telephone Encounter - Asia Barreto RN - 01/15/2025 8:07 AM EDT Last Office Visit: 01/08/2025 Next Office Visit: Visit date not found Last Urine Drug Screen: Lab Results Component Value Date BENZOSCRN Negative 08/09/2023 OARRS appropriate documented in this encounter Plan of Treatment Upcoming Encounters Date Type Department Care Team (Latest Contact Info) Description 02/07/2025 12:30 PM EDT Hospital Encounter [facility] - Pain Procedures [address] [place] [phone] Joe Pedro MD [address] [place] [place], [place] [phone] 02/07/2025 12:30 PM EDT - 02/07/2025 12:39 PM EDT Surgery [facility] - Pain Procedures [address] [place] [phone] Joe Pedro MD [address] [place] [address] INJECTION BLOCK NERVE STELLATE GANGLION NECK [20601 (CPT )] 02/26/2025 11:15 AM EDT Office Visit [facility] [address] [place] [phone] Gertrude Li PA-C [address] [facility] [place] [address]nd [address] [place], [place] [phone] Scheduled Procedures Name Priority Associated Diagnoses Date/Ti me INJECTION BLOCK NERVE STELLATE GANGLION NECK Reflex sympathetic dystrophy of right upper extremity 02/07/2025 12:30 PM EDT documented as of this encounter Visit Diagnoses Diagnosis Reflex sympathetic dystrophy of right upper extremity Complex regional pain syndrome type 1 of right upper extremity Reflex sympathetic dystrophy of right upper extremity- Primary Reflex sympathetic dystrophy of right upper extremity documented in this encounter Care Teams Grain Inspector Relationship Specialty Start Date End Date Latosha Olmstead APRN-MEDIA ASSOCIATE PCP - General Nurse Practitioner 11/10/22 documented as of this encounter
--- OUTSIDE RECORDS SUMMARY | 2025-01-30 09:08 | XMS_ITS | Encounter Summary ---
Author Organization [facility] Address [id number] [address] [place] [address] Care Team Providers Care Mash Filter Press Operator Name Role Phone Latosha Olmstead VIDEO COORDINATOR-COMMUNITY HEALTH NURSE STAFF Primary Care Provider Reason for Visit * Reason Onset Date Comments Med Refill 08/09/2017 Encounter Details Date Type Department Care Team (Late st Contact Info) Description 08/09/2017 Refill [facility] [address] [place] [phone] Barbara Lucero RN Reflex sympathetic dystrophy of right upper extremity (Primary Dx) Social History Tobacco Use Types [...] encounter Miscellaneous Notes * Telephone Encounter - Barbara Lucero RN - 08/09/2017 11:33 AM EST Last OV: 08/02/17 Next OV: Pending procedure approval OARRS appropriate: Yes Last UDS: 03/23/17 Barbara Lucero RN 08/09/17 1137 documented in this encounter Plan of Treatment Upcoming Encounters Date Type Department Care Team (Latest Contact Info) Description 02/07/2025 12:30 PM EDT Hospital Encounter [facility] - Pain Procedures [address] [place] [phone] Joe Pedro MD [address] [place] [address] 02/07/2025 12:30 PM EDT - 02/07/2025 12:39 PM EDT Surgery [facility] - Pain Procedures [address] [place] [phone] Joe Pedro MD [address] [place], [place] [phone] INJECTION BLOCK NERVE STELLATE GANGLION NECK [25991 ([facility] )] 02/26/2025 11:15 AM EDT Office Visit [facility] [address] [place] [phone] Gertrude Li, PAJuan JoseC [address] [facility] [place], [place] [phone] Scheduled Procedures Name Priority Associated Diagnoses Date/Ti me INJECTION BLOCK NERVE STELLATE GANGLION NECK Reflex sympathetic dystrophy of right upper extremity 02/07/2025 12:30 PM EDT documented as of this encounter Visit Diagnoses Diagnosis Reflex sympathetic dystrophy of right upper extremity- Primary Reflex sympathetic dystrophy of right upper extremity documented in this encounter Additional Health Concerns Infection Onset Date Last Indicated Resolved Time COVID-19 Positive 09/28/2021 09/28/2021 10/19/2021 11:12 PM EST documented as of this encounter Care Teams Mash Filter Press Operator Relationship Specialty Start Date End Date Latosha Olmstead, VIDEO COORDINATOR-COMMUNITY HEALTH NURSE STAFF PCP - General Nurse Practitioner 11/10/22 documented as of this encounter
--- OUTSIDE RECORDS SUMMARY | 2025-01-30 09:08 | XMS_ITS | Encounter Summary ---
Author Organization [employer] tem Address [id number] [address] [place] [address] Care Team Providers Care Clinical Instructor Name Role Phone Latosha Olmstead CORSETS SALESPERSON-SURGICAL GARMENT ASSEMBLY SUPERVISOR Primary Care Provider Encounter Details Date Type Department Care Team (Late st Contact Info) Description 01/01/2024 Orders Only [facility] [address] [place] [address] Ref Prov, [place] [address] Social History Tobacco Use Types Packs/Day Years [...] often do you attend chur ch or episcopalian services? Patient declined 08/13/2020 Do you belong to any clubs o r organizations such as restoration groups, unions, fraternal or athletic groups, or [...] Recorded Do you need help finding a [employer] center and/or a training program? No 08/13/2020 Hunger Screening Answer Date Recorded Within the past 12 months we worried whether our food would run out before we got money to buy more. Never True 08/09/2023 Within the past 12 months th e food we bought just didn't last and we didn't have money to get more. Never True 08/09/2023 Purpose - Life Answer Date Recorded Purpose [...] Description 02/07/2025 12:30 PM EDT Hospital Encounter [facility] - Pain Procedures [address] [place] [phone] Joe Pedro MD [address], [place] [phone] 02/07/2025 12:30 PM EDT - 02/07/2025 12:39 PM EDT Surgery [facility] - Pain Procedures [address] [facility] [place] [address] Joe Pedro MD [address], [place] [id number] INJECTION BLOCK NERVE STELLATE GANGLION NECK [97007 (CPT )] 02/26/2025 11:15 AM EDT Office Visit [facility] [address] [place] [phone] Gertrude Li, PAJuan JoseC [address], [address] [place] [address] Scheduled Procedures Name Priority Associated Diagnoses Date/Ti me INJECTION BLOCK NERVE STELLATE GANGLION NECK Reflex sympathetic dystrophy of right upper extremity 02/07/2025 12:30 PM EDT documented as of this encounter Procedures Procedure Name Priority Date/Time Associated Diagnosis Comments EXTERNAL LAB ORDERS / RESULTS Routine 01/01/2024 11:15 AM EDT documented in this encounter Results * External Lab Orders / Results (01/01/2024 11:15 AM EDT) us Not In System Ref Prov LAB ORDERABLES Final Res ult MANUALLY TRANSCRIBED RESULTS documented in this encounter Visit Diagnoses Not on filedocumented in this encounter Care Teams Clinical Instructor Relationship Specialty Start Date End Date Latosha Olmstead, CORSETS SALESPERSON-SURGICAL GARMENT ASSEMBLY SUPERVISOR PCP - General Nurse Practitioner 11/10/22 documented as of this encounter
--- OUTSIDE RECORDS SUMMARY | 2025-01-30 09:08 | XMS_ITS | Encounter Summary ---
Author Organization [employer] Address [id number] [address] [place] [address] Care Team Providers Care Conveyor Console Operator Name Role Phone Latosha Olmstead SUSTAINABILITY MANAGER-DICTAPHONE TYPIST Primary Care Provider Encounter Details Date Type Department Care Team (Late st Contact Info) Description 01/06/2021 Telephone [facility] [address] [place] [address] [place] [address] Linda Cardenas I, PA [address] [place] [address] Social History Tobacco Use Types Packs/Day Years [...] often do you attend chur ch or christian services? Patient declined 08/13/2020 Do you belong to any clubs o r organizations such as caodaism groups, unions, fraternal or athletic groups, or [...] Recorded Do you need help finding a [employer] healthcare career center and/or a training program? No 08/13/2020 Purpose - Life Answer Date Recorded Purpose and direction in life Unknown Comments No Sex and Gender Information Value Date Recorded Sex Assigned at Not on file Legal Sex Female 11:25 AM EDT Gender Identity Not on file Sexual Orientation Not on file documented as of this encounter Miscellaneous Notes * Telephone Encounter - GIANNI Morgna - 01/06/2021 2:57 PM EDT She was a no show for her appointment today. Please call to reschedule * Telephone Encounter - Bobbi Lentz - 01/06/2021 2:57 PM EDT LMOM 01/11/21 * Telephone Encounter - Bobbi Lentz - 01/06/2021 2:57 PM EDT LMOM 01/13/21 * Telephone Encounter - Bobbi Lentz - 01/06/2021 2:57 PM EDT Spoke w/pt 02/01/21 Patient states she is having other health problems at the moment and states she will call us back to reschedule when she is ready. * Telephone Encounter - GIANNI Morgan - 01/06/2021 2:57 PM EDT Let's send her a letter. She is overdue for her follow-up for her renal cyst that we were watching * Telephone Encounter - Bobbi Lentz - 01/06/2021 2:57 PM EDT LETTER PRINTED & MAILED 02/09/21 documented in this encounter Plan of Treatment Upcoming Encounters Date Type Department Care Team (Latest Contact Info) Description 02/07/2025 12:30 PM EDT Hospital Encounter [facility] - Pain Procedures [address] [place] [address] Joe Pedro MD [address] [place] [address] 02/07/2025 12:30 PM EDT - 02/07/2025 12:39 PM EDT Surgery [facility] - Pain Procedures [address] [place] [address] Joe Pedro MD [address] [place] [address] INJECTION BLOCK NERVE STELLATE GANGLION NECK [78923 (CPT )] 02/26/2025 11:15 AM EDT Office Visit [facility] Management [facility] [address] [place] [phone] Gertrude Li PA-C [address] [place] [address] Scheduled Procedures Name Priority Associated Diagnoses Date/Ti me INJECTION BLOCK NERVE STELLATE GANGLION NECK Reflex sympathetic dystrophy of right upper extremity 02/07/2025 12:30 PM EDT documented as of this encounter Visit Diagnoses Not on filedocumented in this encounter Additional Health Concerns Infection Onset Date Last Indicated Resolved Time COVID-19 Positive 09/28/2021 09/28/2021 10/19/2021 11:12 PM EST documented as of this encounter Care Teams Conveyor Console Operator Relationship Specialty Start Date End Date Latosha Olmstead, SUSTAINABILITY MANAGER-DICTAPHONE TYPIST PCP - General Nurse Practitioner 11/10/22 documented as of this encounter
--- OUTSIDE RECORDS SUMMARY | 2025-01-30 09:08 | XMS_ITS | Encounter Summary ---
Author Organization [facility] [employer] [facility] tem Address [id number] [address] [place] [address] Care Team Providers Care Railroad Worker Name Role Phone Latosha Olmstead HEEL TOP LIFT SPLITTER-FLIGHT SERVICE AGENT Primary Care Provider Reason for Visit * Reason Onset Date Comments Med Refill 12/12/2017 Encounter Details Date Type Department Care Team (Late st Contact Info) Description 12/12/2017 Refill [facility] [address] [place] [phone] Barbara Lucero RN Reflex sympathetic dystrophy of [...] Telephone Encounter - Barbara Lucero RN - 12/12/2017 2:46 PM EDT Last OV: 11/01/17 Next OV: Referring patient to surgeon for SCS removal OARRS appropriate: Yes Last UDS: 03/23/17 [facility] patient Barbara Lucero RN 12/12/17 1448 documented in this encounter Plan of Treatment Upcoming Encounters Date Type Department Care Team (Latest Contact Info) Description 02/07/2025 12:30 PM EDT Hospital Encounter [facility] - Pain Procedures [address] [place] [address] Joe Pedro MD [address] [place] [address] 02/07/2025 12:30 PM EDT - 02/07/2025 12:39 PM EDT Surgery [facility] - Pain Procedures [address] [place] [address] Joe Pedro MD [address] [place], [place] [phone] INJECTION BLOCK NERVE STELLATE GANGLION NECK [98809 (CPT )] 02/26/2025 11:15 AM EDT Office Visit [facility] [address] [place] [address] Gertrude Li PA-C [address] [facility] 2[address] [place], [place] [address] Scheduled Procedures Name Priority Associated Diagnoses Date/Ti [...] documented as of this encounter Care Teams Railroad Worker Relationship Specialty Start Date End Date Latosha Olmstead, HEEL TOP LIFT SPLITTER-FLIGHT SERVICE AGENT PCP - General Nurse Practitioner 11/10/22 documented as of this encounter
--- OUTSIDE RECORDS SUMMARY | 2025-01-30 09:08 | XMS_ITS | Encounter Summary ---
Author Organization [facility] Address [address] [facility] [place] [address] Care Team Providers Care Support Services Coordinator Name Role Phone Latosha Olmstead NP Unavailable [phone] Kofi Gotti MD Primary Care Provider [phone] Ninfa Canela MA Unavailable Unavailable Encounter Details Date Type Department Care Team (Late st Contact Info) Description 09/04/2024 Orders Only [facility] [address] [place] [address] Suha Vanegas MD [address] [place] [address] Social History Tobacco Use Types Packs/Day Years [...] often do you attend chur ch or hoahaoism services? Never 10/11/2023 Do you belong to any clubs o r organizations such as uatsdin groups, unions, fraternal or athletic groups, or [...] Recorded Patient Health Questionnaire-2 Score 2 [facility]20[facility]ational Stress Questionnaire Answer Date [...] or slept in a half-way (including now)? No 10/11/2023 Comments Unknown Sex [...] EDT Office Visit [facility] [address] [place] [address] Latosha Olmstead NP [address] [place] [address] documented as of this encounter Procedures Procedure Name Priority Date/Time Associated Diagnosis Comments CT ABDOMEN PELVIS W AND WO IV CONTRAST Routine 09/04/2024 5:16 PM EST documented in this encounter Results * CT abdomen pelvis w and wo IV contrast (09/04/2024 5:16 PM EST) Anatomical Region Laterality Modality Body, Pelvis, Abdomen Computed T omography Suha Vanegas MD IMG CT PROCEDURES Final Result documented in this encounter Visit Diagnoses Not on filedocumented in this encounter Additional Health Concerns Assessment Noted Time PHQ-9 Depression Total Score: 6 10/11/19 24 3:16 PM EST documented as of this encounter Care Teams Support Services Coordinator Relationship Specialty Start Date End Date Kofi Gotti MD [address] [place] [address] PCP - General Family Medicine 06/20/24 Latosha Olmstead NP [address] [place] [address] Nurse Practitioner Family Medicine 06/11/24 Ninfa Canela MA Family Medicine 09/13/24 documented as of this encounter
--- OUTSIDE RECORDS SUMMARY | 2025-01-30 09:08 | XMS_ITS | Referral Summary ---
Author Organization [facility] Address [address] [place] [address] Care Team Providers Care Airline Pilot Name Role Phone Unavailable Primary Care Provider Unavailabl e Social History Tobacco Use Types Packs/Day Years Used Date Smoking Tobacco: Never Assessed [place] Safety & Environment Answer Date Rec orded Fear of Current or Ex-Partner Not on file Emotionally Abused Not on file 10/12/2023 Physically Abused Not on file 10/12/2023 Sexually Abused Not on file 10/12/2023 Physically or Sexually Abused Not on file Comments Unknown Sex and Gender Information Value Date Recorded Sex Assigned at Not on file Legal Sex Female 10:13 PM EDT Gender Identity Not on file Sexual Orientation Not on file Plan of Treatment Not on file Insurance [employer] MEDICARE
--- OUTSIDE RECORDS SUMMARY | 2025-01-30 09:08 | XMS_ITS | Clinical Summary ---
Author Organization [facility] Address [address] [place] [address] Care Team Providers Care Clerk Rating Name Role Phone Unavailable Primary Care Provider [...] Orientation Not on file Plan of Treatment Health Maintenance Due Date Last Done Comments CT Colonography 1958 Colonoscopy 1958 FIT-DNA 1958 FOBT 1958 Medicare Annual Wellness (AWV) 1958 Sigmoidoscopy 1958 Diabetes: Retinopathy Screening 1968 Depression Screening 1970 Diabetes: Urine Protein Screening 1977 Pneumococcal Vaccine: 50+ Years (1 of 2 - PCV) 1977 Adult Tetanus 1980 Zoster Vaccines (1 of 2) 2008 Fall Risk Screening 2023 Diabetes: Hemoglobin A1C 09/06/2023 06/06/2023 COVID-19 Vaccine (2023-2 5 season) 2024 04/02/2021, 03/02/2021, 12/07/2020 Colorectal Cancer Screening 04/28/2024 FIT 04/28/2024 04/28/2023 Influenza Vaccine (Season Ended) 2025 06/03/2016, 06/03/2016 Mammogram 04/17/2026 04/17/2024 HIB Vaccines Aged Out No longer eligi ble based on patient's age to complete this topic HPV Vaccines Aged Out No longer eligi ble based on patient's age to complete this topic IPV Vaccines Aged Out No longer eligi ble based on patient's age to complete this topic Meningococcal B Vaccine Aged Out No l onger eligible based on patient's age to complete this topic Meningococcal Vaccine Aged Out No krystin darvin eligible based on patient's age to complete this topic Rotavirus Vaccines Aged Out No longer eligible based on patient's age to complete this topic Insurance UNITED HEALTHCARE MEDICARE
--- OUTSIDE RECORDS SUMMARY | 2025-01-30 09:08 | XMS_ITS | Encounter Summary ---
Author Organization [facility] Address [address] [place] [address] Care Team Providers Care Refrigeration Service Inspector Name Role Phone Mariluz Mo MD Primary Care Provider [phone] Lisa Porras MD Unavailable Latosha Olmstead Primary Care Provider Unavailabl e Latosha Olmstead Unavailable Unavailable Source Comments In the event this information is protected by the Federal Confidentiality of Alcohol and Drug AbusePatient Records regulations: The Federal rules restrict any use of the information to criminally investigate or prosecute any alcohol or drug abuse patient.[facility] Encounter Details Date Type Department Care Team (Late st Contact Info) Description 2023 [place] [address] Provider, f Medicare Coverage of Physical Exams Social History Tobacco Use Types Packs/Day Years Used Date Smoking Tobacco: Never Smokeless Tobacco: Never Alcohol Use Standard Drinks/Week Comments Yes 0 (1 standard drink = 0.6 oz pur e alcohol) socially Area Deprivation Index Answer Date Al rded National Score (1-100), lower number is lower ri sk Not on file 12/26/2020 State Score (1-10), lower number is lower risk N ot on file 12/26/2020 Data from: https://www.neighborhoodatlas.medicine.[facility].edu/. Last address used for calculation Not on file 12/26/2020 Comments No Sex and Gender Information Value Date Recorded Sex Assigned at Not on file Legal Sex Female 10:26 AM EDT Gender Identity Not on file Sexual Orientation Not on file documented as of this encounter Functional Status * Are you deaf or do you have serious difficulty hearing? Answer Date of Assessment Author No 01/21/2021 1:15 PM EDT Ab nandini Louis RN * Are you blind or do you have serious difficulty seeing, even when wearing glasses? Answer Date of Assessment Author No 01/21/2021 1:15 PM EDT Ab nandini Louis RN * Do you have serious difficulty walking or climbing stairs? Answer Date of Assessment Author No 01/21/2021 1:15 PM EDT Ab nandini Louis RN * Do you have difficulty dressing or bathing? Answer Date of Assessment Author No 01/21/2021 1:15 PM EDT Ab nandini Louis RN * Because of a physical, mental, or emotional condition, do you have difficulty doing errands alone such as visiting a doctor's office or shopping? Answer Date of Assessment Author No 01/21/2021 1:15 PM EDT Ab nandini Louis RN documented as of this encounter Mental Status * Because of a physical, mental, or emotional condition, do you have serious difficulty concentrating, remembering, or making decisions? Answer Entry Date Author No 01/21/2021 1:15 PM NATASHAT Ab nandini Louis RN documented in this encounter Plan of Treatment Not on file documented as of this encounter Visit Diagnoses Not on filedocumented in this encounter Additional Health Concerns Infection Onset Date Last Indicated Resolved Time COVID-19 Rule-Out 08/31/2023 08/31/2023 08/31/2023 5:18 AM EST documented as of this encounter Care Teams Refrigeration Service Inspector Relationship Specialty Start Date End Date Mariluz Mo MD [address] [place] [address] PCP - General Family Medicine 01/29/21 05/16/[address] [place] [address] PCP - General 05/17/23 Lisa Porras MD [address] [facility] [address] [place] [address] Referring Urology 05/11/23 Latosha Olmstead [address] [facility] [address] [place] [address] Referring 01/04/24 documented as of this encounter
--- OUTSIDE RECORDS SUMMARY | 2025-01-30 09:08 | XMS_ITS | Encounter Summary ---
Author Organization [facility] Address [address] [place] [address] Care Team Providers Care Train Engineer Name Role Phone Kofi Gotti MD Primary Care Provider [phone] Unallocated, Jah Provider Primary Care Provi emiliana Latosha Olmstead FILLER LEAF CUTTER LONG Unavailable [phone] Kofi Gotti MD Primary Care Provider [phone] Ninfa Canela MA Unavailable Unavailable Encounter Details Date Type Department Care Team (Late st Contact Info) Description 04/17/2024 Orders Only [facility] [address] [place] [address] Latosha Olmstead, FILLER LEAF CUTTER LONG [address] [place] [address] Social History Tobacco Use Types Packs/Day Years [...] often do you attend chur ch or christianity services? Never 10/11/2023 Do you belong to any clubs o r organizations such as jewish groups, unions, fraternal or athletic groups, or [...] Recorded Patient Health Questionnaire-2 Score 2 01/17/2024 [facility] - Occupational [...] place to sleep or slept in a residential (including now)? No 10/11/2023 Comments Unknown Sex and Gender Information Value Date Recorded Sex Assigned at Not on file Legal Sex Female 6:55 PM EDT Gender Identity Not on file Sexual Orientation Not on file documented as of this encounter Plan of Treatment Upcoming Encounters Date Type Department Care Team (Late st Contact Info) Description 02/18/2025 1:40 PM EDT [facility] [address] [place] [address] Latosha Olmstead NP [address] [place] [address] documented as of this encounter Procedures Procedure Name Priority Date/Time Associated Diagnosis Comments BI MAMMOGRAM SCREENING TOMOSYNTHESIS BILATERAL Routine 04/17/2024 12:43 PM EDT documented in this encounter Results * Bilateral screening mammogram with tomosynthesis (04/17/2024 12:43 PM EDT) Anatomical Region Laterality Modality Breast Bilateral Mammography us Latosha Olmstead NP IMG BI PROCEDURES Final Result documented in this encounter Visit Diagnoses Not on filedocumented in this encounter Additional Health Concerns Assessment Noted Time PHQ-9 Depression Total Score: 6 10/11/19 24 3:16 PM EST documented as of this encounter Care Teams Train Engineer Relationship Specialty Start Date End Date Kofi Gotti MD [address] [place] [address] PCP - General Family Medicine 10/09/23 06/10/24 Unallocated, [facility] Provider, [address] [place] [address] PCP - General Family Medicine 06/11/24 06/19/24 Kofi Gotti MD [address] [place] [address] PCP - General Family Medicine 06/20/24 Latosha Olmstead NP [address] [place] [address] Nurse Practitioner Family Medicine 06/11/24 Ninfa Canela MA Family Medicine 09/13/24 documented as of this encounter
--- OUTSIDE RECORDS SUMMARY | 2025-01-30 09:08 | XMS_ITS | Encounter Summary ---
Author Organization [facility] tem Address [id number] [address] [place] [address] Care Team Providers Care Director Search Marketing Strategies Name Role Phone PennyapurvaLatosha flower CONE TENDER-COMMUNITY LEADER Primary Care Provider Encounter Details Date Type Department Care Team (Late st Contact Info) Description 09/07/2023 Telephone [facility] [address] [place] [address] Latosha Gray CNA Social History Tobacco Use Types Packs/Day Years [...] often do you attend chur ch or sikhism services? Patient declined 08/13/2020 Do you belong to any clubs o r organizations such as buddhism groups, unions, fraternal or athletic groups, or [...] Recorded Do you need help finding a [employer] center and/or a training program? No 08/13/2020 [...] encounter Miscellaneous Notes * Telephone Encounter - Latosha Gray CNA - 09/07/2023 11:56 AM EST FYI Patient calls to ask when she is scheduled for her follow up. Appointment desk shows pt was here 08/09/23 for OV. Procedure and UDS ordered, pending [facility] approval. Patient reports she was calling because she was admitted to [facility] for sepsis and was there for 3 days. Patient unsure of dates of admission. Seems somewhat confused about days. Explained today is . She then thinks she must have been in the hospital over the weekend, but not positive. Reminded her that her fill date for her [place] would be adjusted due to hospitalization. Please check on [facility] approval Thank you documented in this encounter Plan of Treatment Upcoming Encounters Date Type Department Care Team (Latest Contact Info) Description 02/07/2025 12:30 PM EDT Hospital Encounter [facility] - Pain Procedures [address] [facility] [place] [phone] Joe Pedro MD [address] [place] [address] 02/07/2025 12:30 PM EDT - 02/07/2025 12:39 PM EDT Surgery [facility] - [facility] Procedures [address] [facility] [place] [phone] Joe Pedro MD [address] [place], [place] [phone] INJECTION BLOCK NERVE STELLATE GANGLION NECK [67846 (CPT )] 02/26/2025 11:15 AM EDT Office Visit [facility] [address] [place] [phone] Gertrude Li PA-C [address] [facility] 2nd [address] [place], [place] [phone] Scheduled Procedures Name Priority Associated Diagnoses Date/Ti me INJECTION BLOCK NERVE STELLATE GANGLION NECK Reflex sympathetic dystrophy of right upper extremity 02/07/2025 12:30 PM EDT documented as of this encounter Visit Diagnoses Not on filedocumented in this encounter Care Teams Director Search Marketing Strategies Relationship Specialty Start Date End Date Latosha Olmstead, CONE TENDER-COMMUNITY LEADER PCP - General Nurse Practitioner 11/10/22 documented as of this encounter
--- OUTSIDE RECORDS SUMMARY | 2025-01-30 09:08 | XMS_ITS | Encounter Summary ---
Author Organization [facility] Address [address] [facility] [place] [address] Care Team Providers Care Soda Dispenser Name Role Phone Kofi Gotti MD Primary Care Provider Lissette Matamoros LPN Unavailable Unavailable Unallocated, Noms Provider Primary Care Provi emiliana Latosha Olmstead NURSING INSTRUCTOR Unavailable [phone] Kofi Gotti MD Primary Care Provider [phone] Ninfa Canela MA Unavailable Unavailable Encounter Details Date Type Department Care Team (Late st Contact Info) Description 01/10/2024 Orders Only [facility] [address] [place] [address] Latosha Olmstead, NURSING INSTRUCTOR [address] [place] [address] Social History Tobacco Use Types Packs/Day Years [...] any clubs o r organizations such as worship groups, unions, fraternal or athletic groups, or [...] Answer Date Recorded Patient Health Questionnaire-2 Score 0 12/21/2023 [facility] - Occupational Stress [...] place to sleep or slept in a mcc (including now)? No 10/11/2023 Comments Unknown Sex [...] Office Visit [facility] [address] [place] [address] Latosha Olmstead NP [address] [place] [address] documented as of this encounter Procedures Procedure Name Priority Date/Time Associated Diagnosis Comments XR CHEST 1 VIEW Routine 01/10/2024 1:27 PM EDT documented in this encounter Results * XR chest 1 view (01/10/2024 1:27 PM EDT) Anatomical Region Laterality Modality Chest Radiographic Cristiana ging us Latosha Aichholz NURSING INSTRUCTOR IMG XR PROCEDURES Final Result documented in this encounter Visit Diagnoses Not on filedocumented in this encounter Additional Health Concerns Assessment Noted Time PHQ-9 Depression Total Score: 6 10/11/19 24 3:16 PM EST documented as of this encounter Care Teams Soda Dispenser Relationship Specialty Start Date End Date Kofi Gotti MD [address] [place] [address] PCP - General Family Medicine 10/09/23 06/10/24 Unallocated, Noms Provider, [address] [place] [address] PCP - General Family Medicine 06/11/24 06/19/24 Kofi Gotti MD [address] [place] [address] PCP - General Family Medicine 06/20/24 Lissette Matamoros LPN Licensed Practical Nurse Family Medicine 01/22/2401/24/24 Latosha Olmstead NP [address] [place] [address] Nurse Practitioner Family Medicine 06/11/24 Ninfa Canela MA Family Medicine 09/13/24 documented as of this encounter
--- OUTSIDE RECORDS SUMMARY | 2025-01-30 09:08 | XMS_ITS | Encounter Summary ---
Author Organization [facility] tem Address [id number] [address] [place] [address] Care Team Providers Care Dust Collector Name Role Phone Latosha Olmstead LABORATORY CLERK-INSURANCE SOLICITOR Primary Care Provider Encounter Details Date Type Department Care Team (Late st Contact Info) Description 10/04/2023 Telephone [facility] [address] [place] [address] Gina Jarvis CNA Social History Tobacco Use Types Packs/Day [...] often do you attend chur ch or restorationist services? Patient declined 08/13/2020 Do you belong to any clubs o r organizations such as protestant groups, unions, fraternal or athletic groups, or [...] Recorded Do you need help finding a [facility] center and/or a training program? No 08/13/2020 [...] 02/07/2025 12:30 PM EDT Hospital Encounter [facility] - Pain Procedures [address] [place] [address] Joe Pedro MD [address] [place], [place] [phone] 02/07/2025 12:30 PM EDT - 02/07/2025 12:39 PM EDT Surgery [facility] - Pain Procedures [address] [facility] [place] [address] Joe Pedro MD [address] [place], [place] [phone] INJECTION BLOCK NERVE STELLATE GANGLION NECK [83624 (CPT )] 02/26/2025 11:15 AM EDT Office Visit [facility] [address] [place] [address] Gertrude Li, PA-C [address] [place] [address] Scheduled Procedures Name Priority Associated Diagnoses Date/Ti me INJECTION BLOCK NERVE STELLATE GANGLION NECK Reflex sympathetic dystrophy of right upper extremity 02/07/2025 12:30 PM EDT documented as of this encounter Visit Diagnoses Not on filedocumented in this encounter Care Teams Dust Collector Relationship Specialty Start Date End Date Latosha Olmstead, LABORATORY CLERK-INSURANCE SOLICITOR PCP - General Nurse Practitioner 11/10/22 documented as of this encounter
--- OUTSIDE RECORDS SUMMARY | 2025-01-30 09:08 | XMS_ITS | Encounter Summary ---
Author Organization [facility] Address [address] [place] [address] Care Team Providers Care Superintendent Factory Name Role Phone Lisa Porras MD Unavailable Latosha Olmstead Primary Care Provider Latosha Chanel Unavailable Unavailable Source Comments In the event this information is protected by the Federal Confidentiality of Alcohol and Drug AbusePatient Records regulations: The Federal rules restrict any use of the information to criminally investigate or prosecute any alcohol or drug abuse patient.[facility] Encounter Details Date Type Department Care Team (Late st Contact Info) Description 04/09/2024 Patient Msg Urology [address] [place], [place] [id number] Jennifer Nolen MD [address] [place] [address] Please complete your Pre-Check IN for your Virtual appt for today. Social History Tobacco Use Types Packs/Day Years [...] place to sleep or slept in a prison (including now)? Patient refused 08/31/2023 Housing Stability [...] is lower risk 8 05/17/2023 Data from: https://www.neighborhoodatlas.medicine.[facility].edu/. Last address used for calculation [address] [...] hearing? Answer Date of Assessment Author No 06/23/2023 6:06 PM Reyes William RN * Are you blind or do you have serious difficulty seeing, even when wearing glasses? Answer Date of Assessment Author No 06/23/2023 6:06 PM Reyes William RN * Do you have serious difficulty walking or climbing stairs? Answer Date of Assessment Author No 06/23/2023 6:06 PM Reyes William RN * Do you have difficulty dressing or bathing? Answer Date of Assessment Author No 06/23/2023 6:06 PM Reyes William RN * Because of a physical, mental, or emotional condition, do you have difficulty doing errands alone such as visiting a doctor's office or shopping? Answer Date of Assessment Author No 06/23/2023 6:06 PM Reyes William RN documented as of this encounter Mental Status * Because of a physical, mental, or emotional condition, do you have serious difficulty concentrating, remembering, or making decisions? Answer Entry Date Author No 06/23/2023 6:06 PM Reyes William RN documented in this encounter Plan of Treatment Not on file documented as of this encounter Visit Diagnoses Not on filedocumented in this encounter Care Teams Superintendent Factory Relationship Specialty Start Date End Date Latosha Olmstead [address] [place] [address] PCP - General 05/17/23 Lisa Porras MD [address] [place] [address] Referring Urology 05/11/23 Latosha Olmstead [address] [place] [address] Referring 01/04/24 documented as of this encounter
--- OUTSIDE RECORDS SUMMARY | 2025-01-30 09:08 | XMS_ITS | Encounter Summary ---
Author Organization [facility] Address [address] [place] [address] Care Team Providers Care Boarding House Cook Name Role Phone Latosha Olmstead NP Unavailable Kofi Gotti MD Primary Care Provider [phone] Ninfa Canela MA Unavailable Unavailable Encounter Details Date Type Department Care Team (Late st Contact Info) Description 08/15/2024 Orders Only [facility] [address] [place] [address] Latosha Olmstead, LUIS [address] [place] [address] Social History Tobacco Use Types Packs/Day Years [...] any clubs o r organizations such as anglican groups, unions, fraternal or athletic groups, or [...] Recorded Patient Health Questionnaire-2 Score 2 01/17/2024 [facility] Questionnaire Answer Date Recorded [...] place to sleep or slept in a fpc (including now)? No 10/11/2023 Comments Unknown Sex [...] Office Visit [facility] [address] [place] [address] Latosha Olmstead NP [address] [place] [address] documented as of this encounter Procedures Procedure Name Priority Date/Time Associated Diagnosis Comments ELECTROCARDIOGRAM REPORT Routine 024 10:42 AM EST documented in this encounter Results * Electrocardiogram Report (08/10/2024 10:42 AM EST) us Latosha Olmstead NP IN CLINIC/BEDSIDE ORDERABLES Fi nal Result documented in this encounter Visit Diagnoses Not on filedocumented in this encounter Additional Health Concerns Assessment Noted Time PHQ-9 Depression Total Score: 6 10/11/19 24 3:16 PM EST documented as of this encounter Care Teams Boarding House Cook Relationship Specialty Start Date End Date Kofi Gotti MD [address] [place] [address] PCP - General Family Medicine 06/20/24 Latosha Olmstead NP [address] [place] [address] Nurse Practitioner Family Medicine 06/11/24 Ninfa Canela MA Family Medicine 09/13/24 documented as of this encounter
--- OUTSIDE RECORDS SUMMARY | 2025-01-30 09:08 | XMS_ITS | Encounter Summary ---
Author Organization [facility] tem Address [facility]-[id number] [address] [place] [address] Care Team Providers Care Roll Dough Divider Name Role Phone Latohsa Olmstead GOLF CART ATTENDANT-PRODUCT TECHNICIAN Primary Care Provider Reason for Visit * Reason Onset Date Comments Med Refill 04/09/2018 Encounter Details Date Type Department Care Team (Late st Contact Info) Description 04/09/2018 Refill [facility] [address] [place] [address] Sumi Linton, RN Reflex sympathetic dystrophy of right upper [...] encounter Miscellaneous Notes * Telephone Encounter - Sumi Linton RN - 04/09/2018 11:38 AM EDT Last Office Visit: 01/31/18 Next Office Visit: 05/03/2018 Last Urine Drug Screen: 01/17/18 Lab Results Component Value Date BENZOSCRN Negative 01/17/2018 OARRS Appropriate Sumi Linton RN 04/09/18 1144 documented in this encounter Plan of Treatment Upcoming Encounters Date Type Department Care Team (Latest Contact Info) Description 02/07/2025 12:30 PM EDT Hospital Encounter [facility] - Pain Procedures [address] [place] [phone] Joe Pedro MD [address] [place] [address] 02/07/2025 12:30 PM EDT - 02/07/2025 12:39 PM EDT Surgery [facility] - Pain Procedures [address] [facility] [address] Joe Pedro MD [address] [facility], [place] [phone] INJECTION BLOCK NERVE STELLATE GANGLION NECK [68791 (CPT )] 02/26/2025 11:15 AM EDT Office Visit [facility] [address] [place] [address] Gertrude Li PA-C [address] [facility], 2nd Floor [place], [place] [phone] Scheduled Procedures Name Priority Associated Diagnoses Date/Ti [...] documented as of this encounter Care Teams Roll Dough Divider Relationship Specialty Start Date End Date Latosha Olmstead, GOLF CART ATTENDANT-PRODUCT TECHNICIAN PCP - General Nurse Practitioner 11/10/22 documented as of this encounter
--- OUTSIDE RECORDS SUMMARY | 2025-01-30 09:08 | XMS_ITS | Encounter Summary ---
Author Organization [facility] tem Address [id number] [address] [place] [address] Care Team Providers Care Envelope Machine Operator Name Role Phone Latosha Olmstead OPERATING ROOM TECHNOLOGIST-WASTE COTTON CLEANER Primary Care Provider Reason for Visit * Reason Onset Date Comments Med Refill 06/05/2018 Encounter Details Date Type Department Care Team (Late st Contact Info) Description 06/05/2018 Refill [facility] Management [facility] [address] [place] [address] Sumi Linton, RN Reflex sympathetic dystrophy of [...] Telephone Encounter - Sumi Linton RN - 06/05/2018 3:07 PM EDT Last Office Visit: 04/10/2018 Next Office Visit: Visit date not found Last Urine Drug Screen: 01/17/18 Lab Results Component Value Date BENZOSCRN Negative 01/17/2018 OARRS appropriate Sumi Linton RN 06/05/18 1509 * Telephone Encounter - Radha Abrams RN - 06/05/2018 3:07 PM EDT [facility] called to [facility] in [place], [place]. Radha Abrams RN 06/08/18 1344 documented in this encounter Plan of Treatment Upcoming Encounters Date Type Department Care Team (Latest Contact Info) Description 02/07/2025 12:30 PM EDT Hospital Encounter [facility] - Pain Procedures [address] [place] [address] Joe Pedro MD [address] [place], [place] [phone] 02/07/2025 12:30 PM EDT - 02/07/2025 12:39 PM EDT Surgery [facility] - Pain Procedures [address] [place] [address] Joe Pedro MD [address] [place], [place] [phone] INJECTION BLOCK NERVE STELLATE GANGLION NECK [[id number] (CPT )] 02/26/2025 11:15 AM EDT Office Visit [facility] [address] [place] [address] Gertrude Li PA-C [address] [facility] 2nd Floor [place], [place] [address] Scheduled Procedures Name Priority Associated Diagnoses Date/Ti [...] documented as of this encounter Care Teams Envelope Machine Operator Relationship Specialty Start Date End Date Latosha Olmstead, OPERATING ROOM TECHNOLOGIST-WASTE COTTON CLEANER PCP - General Nurse Practitioner 11/10/22 documented as of this encounter
--- OUTSIDE RECORDS SUMMARY | 2025-01-30 09:08 | XMS_ITS | Encounter Summary ---
Author Organization [facility] Address [address] [place] [address] Care Team Providers Care Dairy Clerk Name Role Phone Kofi Gotti MD Primary Care Provider [phone] Lissette Matamoros LPN Unavailable Unavailable Unallocated, Noms Provider Primary Care Provi emiliana Latosha Olmstead METAL SPRAY OPERATOR Unavailable [phone] Kofi Gotti MD Primary Care Provider [phone] Ninfa Canela MA Unavailable Unavailable Encounter Details Date Type Department Care Team (Late st Contact Info) Description 01/11/2024 Orders Only [facility] [address] [place] [address] Latosha Olmstead, METAL SPRAY OPERATOR [address] [place] [address] Social History Tobacco Use Types Packs/Day Years [...] you attend chur ch or yazidi services? Never 10/11/2023 Do you belong to any clubs o r organizations such as baptism groups, unions, fraternal or athletic groups, or [...] Recorded Patient Health Questionnaire-2 Score 0 12/21/2023 [facility] of Occupat ional Health - Occupational [...] place to sleep or slept in a chcf (including now)? No 10/11/2023 Comments Unknown Sex [...] Office Visit [facility] [address] [place] [address] Latosha Olmstead NP [address] [place] [address] documented as of this encounter Procedures Procedure Name Priority Date/Time Associated Diagnosis Comments US RENAL DOPPLER Routine 01/11/2024 2:29 PM EDT ELECTROCARDIOGRAM REPORT Routine 024 8:23 AM EDT documented in this encounter Results * US RENAL DOPPLER (01/11/2024 2:29 PM EDT) Anatomical Region Laterality Modality Radiographic Cristiana ging us Latosha Olmstead METAL SPRAY OPERATOR IMG XR PROCEDURES Final Result * Electrocardiogram Report (01/10/2024 8:23 AM EDT) Latosha Olmstead METAL SPRAY OPERATOR IN CLINIC/BEDSIDE ORDERABLES Fi nal Result documented in this encounter Visit Diagnoses Not on filedocumented in this encounter Additional Health Concerns Assessment Noted Time PHQ-9 Depression Total Score: 6 10/11/19 24 3:16 PM EST documented as of this encounter Care Teams Dairy Clerk Relationship Specialty Start Date End Date Kofi Gotti MD [address] [place] [address] PCP - General Family Medicine 10/09/23 06/10/24 Unallocated, Noms Provider, [address] [facility] [place] [address] PCP - General Family Medicine 06/11/24 06/19/24 Kofi Gotti MD [address] [place] [address] PCP - General Family Medicine 06/20/24 Lissette Matamoros LPN Licensed Practical Nurse Family Medicine 01/22/2401/24/24 Latosha Olmstead NP [address] [place] [address] Nurse Practitioner Family Medicine 06/11/24 Ninfa Canela MA Family Medicine 09/13/24 documented as of this encounter
--- OUTSIDE RECORDS SUMMARY | 2025-01-30 09:08 | XMS_ITS | Encounter Summary ---
Author Organization [facility] tem Address [facility]-[id number] [address] [place] [address] Care Team Providers Care Supervisor Shipfitters Name Role Phone Latosha Olmstead [employer] MED[employer]-ASSOCIATE PROFESSOR PHYSICIAN Primary Care Provider Reason for Visit * Reason Onset Date Comments Hospitalization 06/16/2022 Encounter Details Date Type Department Care Team (Late st Contact Info) Description 06/16/2022 Telephone [facility] - Pain Management Clinic [address] [place] [address] Barbara Lucero RN Hospitalization Social History Tobacco Use Types Packs/Day Years [...] often do you attend chur ch or quaker services? Patient declined 08/13/2020 Do you belong to any clubs o r organizations such as sikhism groups, unions, fraternal or athletic groups, or [...] Recorded Do you need help finding a [employer] career center and/or a training program? No [...] have Coronavirus / COVID-19? No / Unsure 06/16/2022 12:24 PM EDT documented as of this encounter Miscellaneous Notes * Telephone Encounter - Barbara Lucero RN - 06/16/2022 12:25 PM EDT Telephone call from patients granddaughter Lola, patient has been in the hospital for about a week and was transferred to [facility] today where she will be for approximately 1-2 weeks. Per family member, patient almost , was septic and had a toe amputated and will be non weightbearing for 4-6 weeks. * Telephone Encounter - Gertrude Li PA-C - 06/16/2022 12:25 PM EDT noted documented in this encounter Plan of Treatment Upcoming Encounters Date Type Department Care Team (Latest Contact Info) Description 02/07/2025 12:30 PM EDT Hospital Encounter [facility] - Pain Procedures [address] [place] [phone] Joe Pedro MD [address] [place] [address] 02/07/2025 12:30 PM EDT - 02/07/2025 12:39 PM EDT Surgery [facility] - Pain Procedures [address] [place] [address] Joe Pedro MD [address] [place], [place] [phone] INJECTION BLOCK NERVE STELLATE GANGLION NECK [[id number] (CPT )] 02/26/2025 11:15 AM EDT Office Visit [facility] - Pain Management Clinic [address] [place] [address] Gertrude Li PA-C [address] [facility], 2nd Floor [place], [place] [address] Scheduled Procedures Name Priority Associated Diagnoses Date/Ti me INJECTION BLOCK NERVE STELLATE GANGLION NECK Reflex sympathetic dystrophy of right upper extremity 02/07/2025 12:30 PM EDT documented as of this encounter Visit Diagnoses Not on filedocumented in this encounter Care Teams Supervisor Shipfitters Relationship Specialty Start Date End Date Latosha Olmstead, [employer] MEDIC-ASSOCIATE PROFESSOR PHYSICIAN PCP - General Nurse Practitioner 11/10/22 documented as of this encounter
--- OUTSIDE RECORDS SUMMARY | 2025-01-30 09:08 | XMS_ITS | Clinical Summary ---
Author Organization [facility] Address [address] [place] [address] Care Team Providers Care Hotel Security Officer Name Role Phone Unavailable Primary Care Provider Unavailabl e Allergies No known active allergies Medications pregabalin (LYRICA) 150 MG capsule Take 150 mg by mouth 2 times daily. Active HYDROcodone-acet aminophen (NORCO) 5-325 MG per tablet Take 1 tablet by mouth three times daily. Active diltiazem (CARDIZEM) 90 MG tablet Take 180 mg by mouth daily. Active metFORMIN (GLUCOPHAGE) 1000 MG tablet Take 1,000 mg by mouth 2 times daily (with meals). Active insulin glargine (LANTUS) 100 UNIT/ML injection vial Inject 30 Units into the skin nightly. Active budesonide-formo terol (SYMBICORT) 80-4.5 MCG/ACT AERO Inhale 2 puffs into the lungs 3 times daily as needed. Active DULoxetine (CYMBALTA) 60 MG capsule Take 60 mg by mouth daily. Active Social History Tobacco Use Types Packs/Day Years Used Date Smoking Tobacco: Never Smokeless Tobacco: Never Alcohol Use Standard Drinks/Week Comments Yes 0 (1 standard drink = 0.6 oz pur e alcohol) RARE Comments No Sex and Gender Information Value Date Recorded Sex Assigned at Not on file Legal Sex Female 7:34 PM EST Gender Identity Not on file Sexual Orientation Not on file Last Filed Vital Signs Vital Sign Reading Time Taken Comments Blood Pressure 144/89 04/14/2014 1:00 PM EDT Pulse 81 04/14/2014 1:00 PM EDT Temperature 36.5 C (97.7 F) 04/14/2014 12:43 PM EDT Respiratory Rate 16 04/14/2014 1:00 PM EDT Oxygen Saturation 97% 04/14/2014 12:43 PM EDT Inhaled Oxygen Concentration - - Weight 64.4 kg (142 lb) 04/14/2014 9:43 AM EDT Height 154.9 cm (5' 1 ) 04/14/2014 9:43 AM EDT Body Mass Index 26.83 04/14/2014 9:43 AM EDT Plan of Treatment Not on file
--- OUTSIDE RECORDS SUMMARY | 2025-01-30 09:08 | XMS_ITS | Encounter Summary ---
Author Organization [facility] Address [address] [place] [address] Care Team Providers Care Supervisor Shuttle Veneering Name Role Phone Kofi Gotti MD Primary Care Provider [phone] Unallocated, Jah Provider Primary Care Provi emiliana Latosha Olmstead FISH HATCHERY MAN Unavailable [phone] Kofi Gotti MD Primary Care Provider [phone] Ninfa Canela MA Unavailable Unavailable Encounter Details Date Type Department Care Team (Late st Contact Info) Description 04/29/2024 Orders Only [facility] [address] [place] [address] Latosha Olmstead, FISH HATCHERY MAN [address] [place] [address] Social History Tobacco Use Types Packs/Day Years [...] often do you attend chur ch or druze services? Never 10/11/2023 Do you belong to any clubs o r organizations such as mu-ism groups, unions, fraternal or athletic groups, or [...] Recorded Patient Health Questionnaire-2 Score 2 01/17/2024 [facility] of Occupat ional Health - Occupational Stress [...] Office Visit [facility] [address] [place] [address] Latosha Olmstead NP [address] [place] [address] documented as of this encounter Procedures Procedure Name Priority Date/Time Associated Diagnosis Comments XR CHEST 1 VIEW Routine 04/29/2024 11:01 AM EDT XR ABDOMEN 1 VIEW Routine 04/29/2024 10:53 AM EDT SCANNED LABS Routine 04/29/2024 10:21 AM EDT documented in this encounter Results * XR chest 1 view (04/29/2024 11:01 AM EDT) Anatomical Region Laterality Modality Chest Radiographic Cristiana ging us Ryder Funes MD IMG XR PROCEDURES Final Result * XR abdomen 1 view (04/29/2024 10:53 AM EDT) Anatomical Region Laterality Modality Abdomen Radiographic Cristiana ging us Kapil Marr MD IMG XR PROCEDURES Final Result * SCANNED LABS (04/29/2024 10:21 AM EDT) us Latosha Olmstead FISH HATCHERY MAN LAB CHG PERFORMABLES Final Resu lt documented in this encounter Visit Diagnoses Not on filedocumented in this encounter Additional Health Concerns Assessment Noted Time PHQ-9 Depression Total Score: 6 10/11/19 24 3:16 PM EST documented as of this encounter Care Teams Supervisor Shuttle Veneering Relationship Specialty Start Date End Date Kofi Gotti MD [address] [place] [address] PCP - General Family Medicine 10/09/23 06/10/24 Unallocated, Noms MD [address] [place] [address] PCP - General Family Medicine 06/11/24 06/19/24 Kofi Gotti MD [address] [place] [address] PCP - General Family Medicine 06/20/24 Latosha Olmstead NP [address] [place] [address] Nurse Practitioner Family Medicine 06/11/24 Ninfa Canela MA Family Medicine 09/13/24 documented as of this encounter
--- OUTSIDE RECORDS SUMMARY | 2025-01-30 09:09 | XMS_ITS | Encounter Summary ---
Author Organization [facility] Address [address] [place] [address] Care Team Providers Care Senior Technical Editor Name Role Phone Latosha Olmstead NP Unavailable [phone] Kofi Gotti MD Primary Care Provider [phone] Ninfa Canela MA Unavailable Unavailable Encounter Details Date Type Department Care Team (Late st Contact Info) Description 11/07/2024 Orders Only [facility] [address] [place] [address] Latosha Olmstead, COMPLETION ENGINEER [address] [place] [address] Social History Tobacco Use Types Packs/Day Years [...] often do you attend chur ch or islam services? Never 10/11/2023 Do you belong to any clubs o r organizations such as baptist groups, unions, fraternal or athletic groups, or [...] Date Recorded Patient Health Questionnaire-2 Score 0 [facility] Answer Date [...] 02/18/2025 1:40 PM EDT [facility] [address] [place] [address] Latosha Olmstead NP [address] [place] [address] documented as of this encounter Procedures Procedure Name Priority Date/Time Associated Diagnosis Comments DIABETIC RETINOPATHY SCREENING - OU - BOTH EYES Routine 11/07/2024 1:31 PM EDT documented in this encounter Results * Diabetic Retinopathy Screening - OU - Both Eyes (11/07/2024 1:31 PM EDT) Anatomical Region Laterality Modality Head Other us Latosha Olmstead NP OPHTH PHOTOGRAPHY Final Result documented in this encounter Visit Diagnoses Not on filedocumented in this encounter Additional Health Concerns Assessment Noted Time PHQ-9 Depression Total Score: 8 10/25/19 25 3:28 PM EST documented as of this encounter Care Teams Senior Technical Editor Relationship Specialty Start Date End Date Kofi Gotti MD [address] [place] [address] PCP - General Family Medicine 06/20/24 Latosha Olmstead NP [address] [place] [address] Nurse Practitioner Family Medicine 06/11/24 Ninfa Canela MA Family Medicine 09/13/24 documented as of this encounter
--- OUTSIDE RECORDS SUMMARY | 2025-01-30 09:09 | XMS_ITS | Encounter Summary ---
Author Organization [facility] Address [address] [place] [address] Care Team Providers Care Payroll Human Resources Assistant Name Role Phone Latosha Olmstead NP Unavailable [phone] Kofi Gotti MD Primary Care Provider [phone] Ninfa Canela MA Unavailable Unavailable Reason for Visit * Reason Comments Med Change Request Encounter Details Date Type Department Care Team ([facility] Contact Info) Description 09/11/2024 Refill [facility] [address] [place] [address] Latosha Olmstead, MAINTENANCE SERVICES DISPATCHER [address] [place] [address] Type 2 diabetes mellitus with diabetic neuropathy, with long-term current use of insulin (HCC); Type 2 diabetes mellitus with hyperglycemia, with long-term current use of insulin (HCC) Social History Tobacco Use Types Packs/Day Years [...] often do you attend chur ch or orthodoxy services? Never 10/11/2023 Do you belong to any clubs o r organizations such as confucianism groups, unions, fraternal or athletic groups, or [...] Score 2 01/17/2024 [facility] of Occupat ional Health - [...] money to buy more. Never true 10/11/19 Within the past 12 months, t he [...] place to sleep or slept in a assisted (including now)? No 10/11/2023 Comments Unknown Sex [...] Office Visit [facility] [address] [place] [address] Latosha Olmstead NP [address] [place] [address] documented as of this encounter Visit Diagnoses Diagnosis Type 2 diabetes mellitus with diabetic neuropathy, with long-term current use of insulin (HCC) Type 2 diabetes mellitus with hyperglycemia, with long-term current use of insulin (HCC) documented in this encounter Additional Health Concerns Assessment Noted Time PHQ-9 Depression Total Score: 6 10/11/19 24 3:16 PM EST documented as of this encounter Care Teams Payroll Human Resources Assistant Relationship Specialty Start Date End Date Kofi Gotti MD [address] [place] [address] PCP - General Family Medicine 06/20/24 Latosha Olmstead NP [address] [place] [address] Nurse Practitioner Family Medicine 06/11/24 Ninfa Canela MA Family Medicine 09/13/24 documented as of this encounter
--- OUTSIDE RECORDS SUMMARY | 2025-01-30 09:09 | XMS_ITS | Encounter Summary ---
Author Organization [facility] Address [address] [place] [address] Care Team Providers Care Field Sales Consultant Name Role Phone Latosha Olmstead NP Unavailable [phone] Kofi Gotti MD Primary Care Provider [phone] Ninfa Canela MA Unavailable Unavailable Encounter Details Date Type Department Care Team ([facility] st Contact Info) Description 11/24/2024 External Result Encounter [facility] External Department Unsolicited Cory Angeles DPM [address] [facility] [address] [place] [address] Social History Tobacco Use Types Packs/Day Years [...] often do you attend chur ch or moravian services? Never 10/11/2023 Do you belong to [...] Recorded Patient Health Questionnaire-2 Score 2 11/18/2024 [facility] of Occupat ional Health - Occupational [...] place to sleep or slept in a snf (including now)? No 10/11/2023 Comments Unknown Sex [...] EDT Office Visit [facility] [address] [place] [address] Latosha Olmstead NP [address] [place] [address] documented as of this encounter Procedures Procedure Name Priority Date/Time Associated Diagnosis Comments XR FOOT 1-2 VIEWS RIGHT 11/24/2024 2:46 PM EDT documented in this encounter Results * XR foot 1 or 2 views right (11/24/2024 2:46 PM EDT) Anatomical Region Laterality Modality Lower Extremities, Foot Right Radiogra phic Imaging 11/24/2024 2:46 PM EDT Impressions 11/24/2024 2:50 PM EDT Interval removal of the metallic foreign body. No residual foreign body identified. Residual soft tissue swelling noted. Impression dictated by: Raf Potter M.D.11/24/2024 2:48 PM Dictation Location: [place] [address] Transcribed By: [facility] 11/24/248 Dictated By: Raf Potter MD 11/24/24 144 Signed By: <Electronically signed by Raf Potter MD in OV> 11/24/24 1448 Narrative 11/24/2024 2:50 PM EDT [facility] [place] [id number] XRay Report Signed Patient: Renate Wheeler MR#: [id number] : 1960 Acct:[id number] Age/Sex: 64 / F ADM Date: 11/23/24 Loc: 3T Room: [address] [place] [address] Type: ADM IN Attending Dr: Diane Smith MD Copies to: MD Cory Chi DPM Ordering Provider: Cory Angeles DPM Date of Service: 11/24/24 XR/XR foot RT 2V: Post removal foreign body right foot 2 views of the right foot Comparison: 11/24/2024 INDICATION: Interval removal of foreign body FINDINGS: There has been interval removal of the 7 mm radiopaque foreign body identified within the plantar soft tissues of the right foot. Stable focal soft tissue swelling. No fractures. No dislocation. No definite periosteal reaction. Mild degenerative changes. XR/XR foot RT 2V Procedure Note Radiology, Radiologist, MD - 11/24/2024 [facility] [address] [address] XRay Report Signed Patient: Renate Wheeler MMR#: [id number] : 1960cct:[id number] Age/Sex: 64 / FADM Date: 11/23/24 Loc: 3T Room: [id number]: ADM IN Attending Dr: Diane Smith MD Copies to: MD Cory Chi DPM Ordering Provider: Cory Angeles DPM Date of Service: 11/24/24 XR/XR foot RT 2V: Post removal foreign bodyright foot 2 views of the right foot Comparison: 11/24/2024 INDICATION: Interval removal of foreign body FINDINGS: There has been interval removal of the 7 mm radiopaque foreignbody identified within the plantar soft tissues of the right foot. Stable focal soft tissueswelling. No fractures. No dislocation. No definite periosteal reaction. Mild degenerative changes. XR/XR foot RT 2V IMPRESSION: Interval removal of the metallic foreign body. No residual foreign bodyidentified. Residual soft tissue swelling noted. Impression dictated by: Raf Potter M.D.11/24/2024 2:48 PM Dictation Location: [facility]- Transcribed By: [facility] 11/24/24 1448 Dictated By: Raf Potter MD 11/24/24 1446 Signed By: <Electronically signed by Raf Potter MD in OV> 11/24/24 1448 Cory Angeles DPM IMG XR PROCEDURES Final Res ult documented in this encounter Visit Diagnoses Not on filedocumented in this encounter Additional Health Concerns Assessment Noted Time PHQ-9 Depression Total Score: 10 025 10:35 AM EDT documented as of this encounter Care Teams Field Sales Consultant Relationship Specialty Start Date End Date Kofi Gotti MD [address] [place] [address] PCP - General Family Medicine 06/20/24 Latosha Olmstead NP [address] [place] [address] Nurse Practitioner Family Medicine 06/11/24 Ninfa Canela MA Family Medicine 09/13/24 documented as of this encounter
--- OUTSIDE RECORDS SUMMARY | 2025-01-30 09:09 | XMS_ITS | Encounter Summary ---
Author Organization [facility] Address [address] [place] [address] Care Team Providers Care Flight Deck Officer Name Role Phone Lisa Porras MD Unavailable Latosha Olmstead Primary Care Provider Latosha Chanel Unavailable Unavailable Source Comments In the event this information is protected by the Federal Confidentiality of Alcohol and Drug AbusePatient Records regulations: The Federal rules restrict any use of the information to criminally investigate or prosecute any alcohol or drug abuse patient.[facility] Encounter Details Date Type Department Care Team (Late st Contact Info) Description 02/12/2024 Patient Msg Urology [address] [place] [address] Manolo Ballard MD [address] [place] [address] CT scan Social History Tobacco Use Types Packs/Day Years [...] place to sleep or slept in a group home (including now)? Patient refused 08/31/2023 Housing Stability [...] is lower risk 8 05/17/2023 Data from: https://www.neighborhoodatlas.medicine.[facility].edu/. Last address used for calculation [address] [...] of Assessment Author No 06/23/2023 6:06 PM EDReyes Barroso RN * Because of a physical, mental, [...] on filedocumented in this encounter Care Teams Flight Deck Officer Relationship Specialty Start Date End Date Latosha Olmstead [address] [place] [address] PCP - General 05/17/23 Lisa Porras MD [address] [place] [address] Referring Urology 05/11/23 Latosha Olmstead [address] [place] [address] Referring 01/04/24 documented as of this encounter
--- OUTSIDE RECORDS SUMMARY | 2025-01-30 09:09 | XMS_ITS | Encounter Summary ---
Author Organization [facility] Address [address] [place] [address] Care Team Providers Care Engineering Analyst Name Role Phone Kofi Gotti MD Primary Care Provider [phone] Kofi Gotti MD Primary Care Provider [phone] Lissette Matamoros LPN Unavailable Unavailable Unallocated, Noms Provider Primary Care Provi emiliana Latosha Olmstead AUTOMOTIVE PAINTER HELPER Unavailable [phone] Kofi Gotti MD Primary Care Provider [phone] Ninfa Canela MA Unavailable Unavailable Encounter Details Date Type Department Care Team (Late st Contact Info) Description 08/08/2023 Clinisync Result Encounter [facility] External Department Unsolicited Provider, Generic External Data Social History Tobacco Use Types Packs/Day Years Used Date Smoking Tobacco: Never Assessed Comments Unknown Sex and Gender Information Value Date Recorded Sex Assigned at Not on file Legal Sex Female 6:55 PM EDT Gender Identity Not on file Sexual Orientation Not on file documented as of this encounter Plan of Treatment Upcoming Encounters Date Type Department Care Team (Late st Contact Info) Description 02/18/2025 1:40 PM EDT Office Visit [facility] [address] [place] [address] Latosha Olmstead NP [address] [place] [address] documented as of this encounter Procedures Procedure Name Priority Date/Time Associated Diagnosis Comments XR FOOT LT MIN 3V 08/08/2023 10: 05 AM EST documented in this encounter Results * XR FOOT LT MIN 3V (08/08/2023 10:05 AM EST) Anatomical Region Laterality Modality Other 08/08/2023 10:0 5 AM EST Narrative 08/08/2023 10:08 [place] [address] XRay Report Signed Patient: AISLINN CARNES MR#: [id number] : 1960 Acct:[id number] Age/Sex: 63 / F ADM Date: 08/07/23 Loc: Attending Dr: Cammie Segura Ordering Physician: Cammie Segura Date of Service: 08/07/23 Procedure(s): XR foot LT min 3V Accession Number(s): [id number] cc: Latosha Olmstead AUTOMOTIVE PAINTER HELPER; Cammie Segura [place] [id number] Patient Name: AISLINN CARNES MRN: [id number] date: 1960 Sex: F Assigned Patient Location: Current Patient Location: Accession/Order Number: [id number] Exam Date: 08/07/2023 11:27 Report Date: 08/08/2023 10:05 At the request of: CAMMIE SEGURA Procedure: XR foot LT min 3V EXAM: XR foot LT min 3V HISTORY: LEFT FOOT PAIN COMPARISON: 2023. TECHNIQUE: Routine views of the XR foot LT min 3V FINDINGS/ XR/XR foot LT min 3V IMPRESSION: 1. No acute fractures. Transverse dictation across the first metatarsal. Second through fifth metatarsal fracture deformities, unchanged. No aggressive periosteal reaction or destructive osseous changes. 2. Soft tissue defect on the plantar lateral aspect of the fifth metatarsal neck. 3. Normal joint spacing. Electronically authenticated by: JOANNA ROWLEY Date: 08/08/2023 10:05 Dictated By: Joanna Rowley Signed By: 08/08/23 1008 DD/ 1005 TD/TT: Bottle Label Inspector: Procedure Note Radiology, Radiologist, - 08/08/2023 [facility] [place] [id number] XRay Report Signed Patient: AISLINN CARNES MMR#: [id number] : 1960cct:[id number] Age/Sex: 63 / FADM Date: 08/07/23 Loc: Attending Dr: Cammie Segura Ordering Physician: Cammie Segura Date of Service: 08/07/23 Procedure(s): XR foot LT min 3V Accession Number(s): [id number] cc: Latosha Olmstead AUTOMOTIVE PAINTER HELPER; Cammie Segura [facility] [place] [id number] Patient Name: AISLINN CARNES MRN: [id number] date: 1960 Sex: F Assigned Patient Location: Current Patient Location: Accession/Order Number: [id number] Exam Date: 08/07/2023 11:27 Report Date: 08/08/2023 10:05 At the request of: CAMMIE SEGURA Procedure: XR foot LT min 3V EXAM: XR foot LT min 3V HISTORY: LEFT FOOT PAIN COMPARISON: 2023. TECHNIQUE: Routine views of the XR foot LT min 3V FINDINGS/ XR/XR foot LT min 3V IMPRESSION: 1. No acute fractures. Transverse dictation across the first metatarsal. Second through fifth metatarsal fracture deformities, unchanged. No aggressive periosteal reaction or destructive osseous changes. 2. Soft tissue defect on the plantar lateral aspect of the fifthmetatarsal neck. 3. Normal joint spacing. Electronically authenticated by: JOANNA ROWLEY Date: 08/08/2023 10:05 Dictated By: Joanna Rowley Signed By:08/08/23 1008 DD/ 1005 TD/TT: Bottle Label Inspector: us Generic External Data Provider [facility] Final Result documented in this encounter Visit Diagnoses Not on filedocumented in this encounter Care Teams Engineering Analyst Relationship Specialty Start Date End Date Kofi Gotti MD PCP - General Family Medicine 02/10/23 10/08/23 Kofi Gotti MD [address] [place] [address] PCP - General Family Medicine 10/09/23 06/10/24 Unallocated, Jah Mirza MD [address] [place] [address] PCP - General Family Medicine 06/11/24 06/19/24 Kofi Gotti MD [address] [place] [address] PCP - General Family Medicine 06/20/24 Lissette Matamoros LPN Licensed Practical Nurse Family Medicine 01/22/2401/24/24 Latosha Olmstead NP [address] [place] [address] Nurse Practitioner Family Medicine 06/11/24 Ninfa Canela MA Family Medicine 09/13/24 documented as of this encounter
--- OUTSIDE RECORDS SUMMARY | 2025-01-30 09:09 | XMS_ITS | Encounter Summary ---
Author Organization [facility] Address [address] [place] [address] Care Team Providers Care Steam Plant Operator Name Role Phone Latosha Olmstead NP Unavailable [phone] Kofi Gotti MD Primary Care Provider [phone] Mel Canela MA Unavailable Unavailable Reason for Visit * Reason Comments Med Refill Encounter Details Date Type Department Care Team ([facility] Contact Info) Description 10/15/2024 Refill [facility] [address] [place] [address] Latosha Olmstead, ROLLER SHOP UTILITY WORKER [address] [place] [address] Type 2 diabetes mellitus with diabetic neuropathy, with long-term current use of insulin (HCC); Type 2 diabetes mellitus with hyperglycemia, with long-term current use of insulin (HCC); 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 Never 10/11/2023 Do you belong to any clubs o r organizations such as temple groups, unions, fraternal or athletic groups, or [...] Recorded Patient Health Questionnaire-2 Score 2 01/17/2024 [facility] of Occupat ional Health - Occupational [...] encounter Miscellaneous Notes * Telephone Encounter - PADMAJA SULLIVAN - 10/28/2024 11:37 AM EDT Pt came In to get a BP check and talk with mel about her sugars. Pt does have her sensor it today, brought her meter, and her auto inject pen documented in this encounter Plan of Treatment Upcoming Encounters Date Type Department Care Team (Late st Contact Info) Description 02/18/2025 1:40 PM EDT Office Visit [facility] [address] [place] [address] Latosha Olmstead NP [address] [place] [address] documented as of this encounter Visit Diagnoses Diagnosis Type 2 diabetes mellitus with diabetic neuropathy, with long-term current use of insulin (HCC) Type 2 diabetes mellitus with hyperglycemia, with long-term current use of insulin (HCC) 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
--- OUTSIDE RECORDS SUMMARY | 2025-01-30 09:09 | XMS_ITS | Encounter Summary ---
Author Organization [facility] Address [address] [place] [address] Care Team Providers Care International Broadcast Music Librarian Name Role Phone Kofi Gotti MD Primary Care Provider [phone] Lissette Matamoros LPN Unavailable Unavailable Unallocated, Noms Provider Primary Care Provi emiliana Latosha Olmstead HR GENERALIST Unavailable [phone] Kofi Gotti MD Primary Care Provider [phone] Ninfa Canela MA Unavailable Unavailable Encounter Details Date Type Department Care Team (Late st Contact Info) Description 10/19/2023 Orders Only [facility] [address] [place] [address] Epifanio Enrique Social History Tobacco Use Types Packs/Day Years [...] often do you attend chur ch or gnosticist services? Never 10/11/2023 Do you belong to any clubs o r organizations such as alevism groups, unions, fraternal or athletic groups, or [...] Recorded Patient Health Questionnaire-2 Score 2 10/11/2023 [facility] - Occupational Stress Questionnaire Answer Date [...] Office Visit [facility] [address] [place] [address] Latosha Olmstead NP [address] [place] [address] documented as of this encounter Procedures Procedure Name Priority Date/Time Associated Diagnosis Comments XR FOOT 3+ VIEWS LEFT Routine 10/02/2023 2:40 PM EST documented in this encounter Results * XR foot 3+ views left (10/02/2023 2:40 PM EST) Anatomical Region Laterality Modality Lower Extremities, Foot Left Radiogra phic Imaging Epifanio ISSA XR PROCEDURES Final Resul t documented in this encounter Visit Diagnoses Not on filedocumented in this encounter Additional Health Concerns Assessment Noted Time PHQ-9 Depression Total Score: 6 10/11/19 3:16 PM EST documented as of this encounter Care Teams International Broadcast Music Librarian Relationship Specialty Start Date End Date Kofi Gotti MD [address] [place] [address] PCP - General Family Medicine 10/09/23 06/10/24 Unallocated, Noms Provider, [address] [place] [address] [place] [address] PCP - General Family Medicine 06/11/24 06/19/24 Kofi Gotti MD [address] [place] [address] PCP - General Family Medicine 06/20/24 Lissette Matamoros LPN Licensed Practical Nurse Family Medicine 01/22/2401/24/24 Latosha Olmstead NP [address] [place] [address] Nurse Practitioner Family Medicine 06/11/24 Ninfa Canela MA Family Medicine 09/13/24 documented as of this encounter
--- OUTSIDE RECORDS SUMMARY | 2025-01-30 09:09 | XMS_ITS | Encounter Summary ---
Author Organization [facility] Address [address] [place] [address] Care Team Providers Care Weapons Designer Name Role Phone Latosha Olmstead NP Unavailable [phone] Kofi Gotti MD Primary Care Provider [phone] Ninfa Canela MA Unavailable Unavailable Encounter Details Date Type Department Care Team ([facility] st Contact Info) Description 11/24/2024 Abstract [facility] [address] [place] [address] Cory Angeles DPM [address] [address] Social History Tobacco Use Types Packs/Day Years [...] often do you attend chur ch or jainism services? Never 10/11/2023 Do you belong to any clubs o r organizations such as rastafarian groups, unions, fraternal or athletic groups, or [...] Recorded Patient Health Questionnaire-2 Score 2 11/18/2024 [facility] - Occupational [...] 02/18/2025 1:40 PM EDT Office Visit [facility] [address] [place] [id number] Latosha Olmstead NP [address] [place] [address] documented as of this encounter Visit Diagnoses Not on filedocumented in this encounter Additional Health Concerns Assessment Noted Time PHQ-9 Depression Total Score: 10 025 10:35 AM EDT documented as of this encounter Care Teams Weapons Designer Relationship Specialty Start Date End Date Kofi Gotti MD [address] [place] [address] PCP - General Family Medicine 06/20/24 Latosha Olmstead NP [address] [place] [address] Nurse Practitioner Family Medicine 06/11/24 Ninfa Canela MA Family Medicine 09/13/24 documented as of this encounter
--- OUTSIDE RECORDS SUMMARY | 2025-01-30 09:09 | XMS_ITS | Encounter Summary ---
Author Organization [facility] Address [address] [place] [address] Care Team Providers Care Lead Shop Operator Name Role Phone Kofi Gotti MD Primary Care Provider [phone] Kofi Gotti MD Primary Care Provider [phone] Lissette Matamoros LPN Unavailable Unavailable Unallocated, Noms Provider Primary Care Provi emiliana Latosha Olmstead IRRIGATION TAX ASSESSOR COLLECTOR Unavailable [phone] Kofi Gotit MD Primary Care Provider [phone] Ninfa Canela MA Unavailable Unavailable Encounter Details Date Type Department Care Team (Late st Contact Info) Description 10/02/2023 Clinisync Result Encounter [facility] Department Unsolicited [...] [facility] [address] [place] [address] Latosha Olmstead NP [address] [place] [address] documented as of this encounter Procedures Procedure Name Priority Date/Time Associated Diagnosis Comments XR FOOT LT MIN 3V 10/02/2023 2:3 4 PM EST documented in this encounter Results * XR FOOT LT MIN 3V (10/02/2023 2:34 PM EST) Anatomical Region Laterality Modality Other 10/02/2023 2:34 PM EST Narrative 10/02/2023 2:37 [place] [address] XRay Report Signed Patient: AISLINN CARNES MR#: [id number] : 1960 Acct:[id number] Age/Sex: 63 / F ADM Date: Loc: Attending Dr: Ramon Enrique D.P.M. Ordering Physician: Ramon Enrique D.P.M. Date of Service: 10/02/23 Procedure(s): XR foot LT min 3V Accession Number(s): [id number] cc: Latosha Olmstead IRRIGATION TAX ASSESSOR COLLECTOR; Ramon Enrique D.P.M. [facility] [place] [address] Patient Name: AISLINN CARNES MRN: [id number] date: 1960 Sex: F Assigned Patient Location: Current Patient Location: Accession/Order Number: [id number] Exam Date: 10/02/2023 02:08 Report Date: 10/02/2023 14:34 At the request of: RAMON ENRIQUE Procedure: XR foot LT min 3V STUDY: XR foot LT min 3V, [id number] HISTORY: LEFT FOOT PAIN COMPARISON: Left foot x-rays 08/07/2023 and 2023. FINDINGS: No acute fracture, dislocation, or suspicious osseous lesion. 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 Healed fractures of the distal second through fifth metatarsals. Additional partially fused chronic fractures of the proximal diaphyses of the second through fourth metatarsals, similar. Healed fracture of the second proximal phalanx. Os peroneum and accessory navicular are present. Medial malleolar fusion screws are present. Moderate Achilles insertional enthesopathy. XR/XR foot LT min 3V IMPRESSION: In the absence of localizing information for the patient's foot pain, no new or worsening osseous abnormality. Electronically authenticated by: KYLER BURNETT Date: 10/02/2023 14:34 Dictated By: Kyler Burnett Signed By: 10/02/231436 DD/ 33 TD/TT: Marketing And Public Relations Manager: Procedure Note Radiology, Radiologist, MD - 10/25/2023 [place] [address] XRay Report Signed Patient: AISLINN CARNES MMR#: [id number] : 1960cct:[id number] Age/Sex: 63 / FADM Date: Loc: Attending Dr: Ramon Enrique D.P.M. Ordering Physician: Ramon Enrique D.P.M. Date of Service: 10/02/23 Procedure(s): XR foot LT min 3V Accession Number(s): [id number] cc: Latosha Olmstead IRRIGATION TAX ASSESSOR COLLECTOR; Ramon Enrique D.P.M. [facility] [place] [address] Patient Name: AISLINN CARNES MRN: [id number] date: 1960 Sex: F Assigned Patient Location: Current Patient Location: Accession/Order Number: [id number] Exam Date: 10/02/2023 02:08 Report Date: 10/02/2023 14:34 At the request of: RAMON ENRIQUE Procedure: XR foot LT min 3V STUDY: XR foot LT min 3V, [id number] HISTORY: LEFT FOOT PAIN COMPARISON: Left foot x-rays 08/07/2023 and 2023. FINDINGS: No acute fracture, dislocation, or suspicious osseous lesion. 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 Healed fractures of the distal second through fifth metatarsals.Additional partially fused chronic fractures of the proximal diaphyses of the second through fourth metatarsals, similar. Healed fracture of the second proximal phalanx. Os peroneum and accessory navicular are present. Medial malleolar fusion screws are present. Moderate Achilles insertional enthesopathy. XR/XR foot LT min 3V IMPRESSION: In the absence of localizing information for the patient's foot pain, nonew or worsening osseous abnormality. Electronically authenticated by: KYLER BURNETT Date: 10/02/2023 14:34 Dictated By: Kyler Burnett Signed By:10/02/23 1437 DD/ 33 TD/TT: Marketing And Public Relations Manager: us Generic External Data Provider [facility] Final Result documented in this encounter Visit Diagnoses Not on filedocumented in this encounter Care Teams Lead Shop Operator Relationship Specialty Start Date End Date Kofi Gotti MD PCP - General Family Medicine 02/10/23 10/08/23 Kofi Gotti MD [address] [place] [address] PCP - General Family Medicine 10/09/23 06/10/24 Unallocated, Noms MD [facility] [address] [place] [address] PCP - General Family Medicine 06/11/24 06/19/24 Kofi Gotti MD [address] [place] [phone] PCP - General Family Medicine 06/20/24 Lissette Matamoros LPN Licensed Practical Nurse Family Medicine 01/22/2401/24/24 Latosha Olmstead NP [address] [place] [address] Nurse Practitioner Family Medicine 06/11/24 Ninfa Canela MA Family Medicine 09/13/24 documented as of this encounter
--- OUTSIDE RECORDS SUMMARY | 2025-01-30 09:09 | XMS_ITS | Clinical Summary ---
Author Organization [facility] Address [address] [place] [address] Care Team Providers Care French Translator Name Role Phone Latosha Olmstead NP Unavailable [phone] Kofi Gotti MD Primary Care Provider [phone] Ninfa Canela MA Unavailable Unavailable Allergies Active Allergy Reactions Criticality Noted Date Comments Latex Rash Low 02/04/2020 Added based on information entered during case entry, please review and add reactions, type, and severity as needed Medications HYDROcodone-acetam inophen (Garland) 7.5-325 MG tablet Take 1 tablet by mouth 3 (three) times a day as needed 08/11/20 23 Active pregabalin (Lyrica) 150 MG capsule Take 1 capsule by mouth in the morning and 1 capsule at noon and 1 capsule in the evening. 08/11/20 23 Active denosumab (Prolia) 60 MG/ML solution prefilled syringe Inject 60 mg under the skin every 6 (six) months Active cyanocobalamin (Vitamin B-12) 1000 MCG tablet Take 1,000 mcg by mouth Daily 10/10/19 24 Active ondansetron ODT (Zofran-ODT) 4 MG disintegrating tablet Take 4 mg by mouth every 8 (eight) hours if needed for vomiting or nausea 06/05/20 24 Active ferrous sulfate 325 (65 Fe) MG EC tablet Take 325 mg by mouth in the morning. Take with meals. 06/05/20 24 Active cetirizine (ZyrTEC) 10 MG tabletIndications: Chronic cough Take 1 tablet (10 mg) by mouth Daily 30 tablet 2 06/24/20 24 Active fluticasone (Flonase) 50 MCG/ACT nasal sprayIndications:C hronic cough Administer 2 sprays into each nostril Daily Shake gently. Before first use, prime pump. After use, clean tip and replace cap. 16 g 2 06/24/20 24 Active nitroglycerin (Nitrostat) 0.[address] 0.4 mg under the tongue every 5 (five) minutes if needed for chest pain 08/26/19 25 Active furosemide (Lasix) 40 MG tablet Take 40 mg by mouth in the morning and 40 mg before bedtime. 09/08/19 25 Active insulin glargine (Lantus) 100 UNIT/ML injectionIndicatio ns:Type 2 diabetes mellitus with diabetic neuropathy, with long-term current use of insulin (HCC),Type 2 diabetes mellitus with hyperglycemia, with long-term current use of insulin ([facility]) Inject 30 Units under the skin at bedtime 30 mL 1 09/11/19 25 Active insulin lispro (HumaLOG) 100 UNIT/ML injectionIndicatio ns:Type 2 diabetes mellitus with hyperglycemia, with long-term current use of insulin ([facility]) INJECT 4 units at breakfast, 6 units at lunch, and 8 units at dinner plus sliding scale coverage, max of 30 units daily 5 each 3 10/30/19 25 Active pen needle 31G x 5 mm miscIndications:Ty pe 2 diabetes mellitus with hyperglycemia, with long-term current use of insulin ([facility]) 5 injections daily. Use as instructed 300 each 6 10/30/19 25 026 Active amLODIPine (Norvasc) 10 MG tabletIndications: Essential (primary) hypertension Take 1 tablet (10 mg) by mouth Daily 90 tablet 11/19/19 25 025 Active atorvastatin (Lipitor) 20 MG tabletIndications: Mixed hyperlipidemia Take 1 tablet (20 mg) by mouth at bedtime 90 tablet 01/28/20 25 025 Active metoprolol succinate XL (Toprol-XL) 50 MG 24 hr tabletIndications: Essential (primary) hypertension Take 1 tablet (50 mg) by mouth Daily 90 tablet 01/28/20 25 025 Active amoxicillin (Amoxil) 500 MG capsuleIndications :UTI symptoms Take 1 capsule (500 mg) by mouth in the morning and 1 capsule (500 mg) before bedtime. Do all this for 7 days. 14 capsule 01/28/20 25 025 Active atorvastatin (Lipitor) 20 MG tabletIndications: Mixed hyperlipidemia Take 1 tablet (20 mg) by mouth at bedtime 90 tablet 10/25/19 25 025 Discontin ued(Reord er) metoprolol succinate XL (Toprol-XL) 50 MG 24 hr tabletIndications: Essential (primary) hypertension Take 1 tablet (50 mg) by mouth Daily 90 tablet 10/25/19 25 025 Discontin ued(Reord er) Active Problems Problem Noted Date Diagnosed Date Urinary tract infection symptoms 01/27/2025 Assessment & Plan (01/27/2025 5:34 PM EDT): See UA from office Will treat with atb today, Check urine culture Other fatigue 01/27/2025 Assessment & Plan (01/27/2025 5:38 PM EDT): Unclear etiology Check labs Acute renal failure 12/04/2024 Assessment & Plan (12/04/2024 12:54 PM EDT): Recent hospitalization for this Needs to be compliant with fu with Nephrology Phone number given Cellulitis of right foot 12/04/2024 Hydroureteronephrosis 12/04/2024 Hypomagnesemia 12/04/2024 Assessment & Plan (01/27/2025 5:36 PM EDT): Check labs Metabolic acidosis 12/04/2024 Uropathy, obstructive 12/04/2024 Memory impairment 12/04/2024 Assessment & Plan (12/04/2024 12:57 PM EDT): Will send for neuropsych evaluation to determine if underlying issue contributes to non compliance Chest pain 11/18/2024 Assessment & Plan (11/18/2024 12:49 PM EDT): Was non compliant with cardiology referral d/t hospitalization Has strong risk factors, describes chest pain as pressure, can be affiliated with activity Will refer to [facility] Right foot pain 11/11/2024 Assessment & Plan (11/18/2024 12:46 PM EDT): FB X2 noted on xray, I did speak with Carmencita ARCHER at 12:45pm on 11/18/24 for update I will start keaida atb as well She has appt with her on 11/19/24 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 11/07/2024 Non compliance w medication regimen 10/24/2024 Assessment & Plan (01/27/2025 5:36 PM EDT): Difficulty with follow ups, taking all meds and getting to all appts No longer being followed by advocate d/t pt non compliance Assessment & Plan (12/04/2024 12:55 PM EDT): Difficulty with follow ups, taking all meds and getting to all appts Now has pt advocate, Reyes Canela Assessment & Plan (11/18/2024 6:29 AM EDT): Difficulty with follow ups, taking all meds and getting to all appts Now has pt advocateReyes Assessment & Plan (10/24/2024 5:37 PM EST): Difficulty with follow ups, taking all meds and getting to all appts I had wanted pt to meet with office Pt Advocate Ninfa to help with her chronic health conditions, she was not in the office today at the time of pt's appt. I will have her RTO on 10/28/24 to speak with her as well Chronic kidney disease, stage 4 (severe) 025 Assessment & Plan (01/27/2025 5:32 PM EDT): Long standing uncontrolled HTN and DM Multiple attempts to get pt to specialists, does not follow through She is established with local [employer] Goal: bp and DM control, although there again her compliance with blood sugar checking is difficult. She has been referred to local area Endo and [employer], but does not go to her appts [...] advised of the importance of going for the fu to see if therapies are helping or not Assessment & Plan (12/04/2024 6:26 AM EDT): Long standing uncontrolled HTN and DM Multiple attempts to get pt to specialists, does not follow through She is established with local [employer] Goal: bp and DM control, although there again her compliance with blood sugar checking is difficult. She has been referred to [facility] [employer], but does not go to her appts as scheduled and has been discharged, and does not appear to have a strong support system Assessment & Plan (11/18/2024 6:28 AM EDT): Long standing uncontrolled HTN and DM Multiple attempts to get pt to specialists, does not follow through She is established with local [employer] Goal: bp and DM control, although there again her compliance with blood sugar checking is difficult. She has been referred to [facility] [employer], but does not go to her appts as scheduled and has been discharged, and does not appear to have a strong support system Assessment & Plan (10/24/2024 7:17 AM EST): Long standing uncontrolled HTN and DM Multiple attempts to get pt to specialists, does not follow through She is established with local [employer], it is of note that in the last week she was admitted to [facility] for elevated kidney function and potassium, med adjustments as well. Urged pt to please continue to follow with Nephrology Goal: bp and DM control, although there again her compliance with blood sugar checking is difficult. She has been referred to [facility] [employer], but does not go to her appts as scheduled and has been discharged, and does not appear to have a strong support system Assessment & Plan (09/11/2024 7:45 AM EST): Long standing uncontrolled HTN and DM Multiple attempts to get pt to specialists, does not follow through She is established with local [employer], it is of note that in the last week she was admitted to [facility] for elevated kidney function and potassium, med adjustments as well. Urged pt to please continue to follow with Nephrology Goal: bp and DM control, although there again her compliance with blood sugar checking is difficult. She has been referred to local area Endo and [employer], but does not go to her appts as scheduled and has been discharged, and does not appear to have a strong support system Assessment & Plan (08/27/2024 2:58 PM EST): Long standing uncontrolled HTN and DM Multiple attempts to get pt to specialists, does not follow through She is established with local [employer] Continue to follow Goal: bp and DM control Assessment & Plan (08/27/2024 6:56 AM EST): Long standing uncontrolled HTN and DM Multiple attempts to get pt to specialists, does not follow through She is established with local [employer] Continue to follow Goal: bp and DM control 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 08/27/2024 Assessment & Plan (08/27/2024 6:58 AM EST): 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 health conditions [facility] (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 08/27/2024 Assessment & Plan (08/27/2024 6:58 AM EST): Both basal and bolus Other chest pain 08/27/2024 Assessment & Plan (08/27/2024 6:30 PM EST): Had stress test and ECHO in 2022 at [facility], no acute ischemic findings Strong risk factors for CAD Will refer to [facility], in [place], has seen Danial in the past Mixed hyperlipidemia 07/22/2024 B12 deficiency 06/11/2024 Assessment & Plan (01/27/2025 5:35 PM EDT): Check to see if source of fatigue Hypertensive nephropathy 06/11/2024 Anemia of renal disease 06/11/2024 Skin lesion of face 06/11/2024 Assessment & Plan (06/11/2024 12:59 PM EDT): Suspect to be AK Pt request referral to derm Nausea and vomiting 05/08/2024 Chronic cough 04/16/2024 Assessment & Plan (04/16/2024 4:30 PM EDT): Check xray Consider antihistamine and nasal steroids Will await the results Type 2 diabetes mellitus wit h diabetic chronic kidney disease 03/13/2024 Assessment & Plan (04/16/2024 4:31 PM EDT): A1c is coming down Cont current meds Hyperparathyroidism, unspecified 03/13/2024 Assessment & Plan (01/27/2025 5:35 PM EDT): Non compliant with fu with nephrology Atherosclerosis of aorta 03/13/2024 Vitamin D deficiency due to chronic kidney disea se 03/07/2024 Assessment & Plan (01/27/2025 5:35 PM EDT): Check labs Continuous leakage of urine 12/21/2023 Assessment & Plan (08/27/2024 6:33 PM EST): Would like a second opinion about need for sling etc Assessment & Plan (06/11/2024 12:54 PM EDT): Continue with urology Encounter for screening mamm ogram for malignant neoplasm of breast 11/28/2023 Herpes simplex vulvovaginitis 11/16/2023 Assessment & Plan (11/16/2023 5:57 PM EDT): Denies any known history for genital herpes. At this point we did obtain a culture through [facility] Will treat for herpes with acyclovir, and will also add calmoseptine ointment as well Pain likely related to urine contact with lesions Fu in 2 weeks Mixed incontinence 10/11/2023 Type 2 diabetes mellitus wit h diabetic neuropathy, with long-term current use of insulin 10/11/2023 Assessment & Plan (01/27/2025 5:30 PM EDT): Not sure if her balance issues are neuropathy related or lumbar etiology Assessment & Plan (12/04/2024 12:53 PM EDT): Recommend freq foot checks, proper fitting shoes And better glucose control Assessment & Plan (11/18/2024 6:27 AM EDT): Recommend freq foot checks, proper fitting shoes And better glucose control Assessment & Plan (10/24/2024 7:16 AM EST): Reports increase in neuropathy symptoms, is on lyrica at 150mg TID, also takes percocet for RSD Assessment & Plan (09/11/2024 7:08 AM EST): Reports increase in neuropathy symptoms, is on lyrica at 150mg TID, also takes percocet for RSD Assessment & Plan (08/27/2024 2:57 PM EST): Reports increase in neuropathy symptoms, is on lyrica at 150mg TID, also takes percocet for RSD At last appt started addition of duloxetine at 20mg daily Assessment & Plan (08/27/2024 6:53 AM EST): Reports increase in neuropathy symptoms, is on lyrica at 150mg TID, also takes percocet for RSD At last appt started addition of duloxetine at 20mg daily Assessment & Plan (06/11/2024 12:52 PM EDT): Reports increase in neuropathy symptoms, is on lyrica at 150mg TID, also takes percocet for RSD Will trial addition of duloxetine at 20mg daily Fu in 4-6 weeks Assessment & Plan (10/11/2023 5:20 PM EST): Check blood sugars daily, notify if <70 [...] diet low in carbohydrates, and simple sugars. Will refer to [facility] for diabetic eye exam Re establish with Diabetic provider was lost in follow up d/t all her hospitalizations RSD (reflex sympathetic dystrophy) 10/11/2023 Assessment & Plan (11/18/2024 6:27 AM EDT): Follows with pain mgmt for this Assessment & Plan (08/27/2024 6:52 AM EST): Follows with pain mgmt for this Possible adjust in lyrica d/t kidney function Assessment & Plan (06/11/2024 12:52 PM EDT): Continue with pain mgmt Mitral valve prolapse 10/11/2023 Fatty liver 10/11/2023 Malignant neoplasm of cervix uteri, unspecified 10/11/2023 Overview (10/11/2023): had Hysterectomy Assessment & Plan (09/11/2024 7:09 AM EST): Had hyst Assessment & Plan (06/11/2024 12:58 PM EDT): Had hyst Assessment & Plan (04/16/2024 4:30 PM EDT): Had hyst Charcot's joint of foot, left 10/11/2023 Osteoporosis 10/11/2023 Overview (10/11/2023): Bone Densitiy 12/28/2022: hip right -2.7 Visual impairment 10/11/2023 Overview (10/11/2023): HAD BILATERAL CATARCT SURGERY BETTER NOW Post-menopausal 10/11/2023 Encounter for subsequent [facility] wellness visit (AWV) in Medicare patient 10/11/2023 Assessment & Plan (11/18/2024 10:57 AM EDT): Reviewed Ht/Wt/BMI Recommend eye exam yearly Recommend dental exams twice a year Balance work/leisure activities Exercises is recommended most days of the week (appropriate as chronic conditions allow) Follow up yearly and prn Hand out on living will and HCPOA Assessment & Plan (10/24/2024 5:38 PM EST): Reviewed Ht/Wt/BMI Recommend eye exam yearly Recommend dental exams twice a year Exercises is recommended most days of the week (appropriate as chronic conditions allow) Follow up yearly and prn Assessment & Plan (10/11/2023 5:14 PM EST): Reviewed Ht/Wt/BMI Recommend eye exam yearly Recommend dental exams twice a year Balance work/leisure activities Exercises is recommended most days of the week (appropriate as chronic conditions allow) Follow up yearly and prn Renal neoplasm 06/22/2023 Neurogenic bladder 06/06/2023 Overview (10/11/2023): Last Assessment & Plan: Assessment: Previous had to self cath Gets botox injections and no longer has to cath Follows with Dr. Porras at [facility] Assessment & Plan (01/27/2025 5:33 PM EDT): Straight caths self TID Assessment & Plan (12/04/2024 12:55 PM EDT): Refer to Urogyn for second opinion about possible surgical options Assessment & Plan (08/27/2024 6:39 PM EST): Refer to Urogyn for second opinion about possible surgical options Assessment & Plan (01/17/2024 12:51 PM EDT): Continue with work up with urology Is going to see urogyn Assessment & Plan (10/11/2023 5:21 PM EST): Is self cathing twice a day Cont with urology Mild intermittent asthma without complication Overview (10/11/2023): Last Assessment & Plan: Assessment: uses Symbicort PRN, rare use Denies recent URI or wheezing History of TIA (transient ischemic attack) 07/25 Overview (10/11/2023): Last Assessment & Plan: Assessment: states has a TIA many years ago without residual No current AC Denies dizziness or syncope 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 States checks BP at home and is usually normal to low Advised to continue to monitor at home and discuss with PCP Assessment & Plan (01/27/2025 5:30 PM EDT): Please check blood pressure daily and record DASH diet Limit caffeine Take medication as directed Contact office if chest pain, pressure, dizziness, shortness of breath, swelling legs Recommend slow position changes Current meds: amlodipine and metoprolol Assessment & Plan (12/04/2024 6:27 AM EDT): Please check blood pressure daily and record DASH diet Limit caffeine Take medication as directed Contact office if chest pain, pressure, dizziness, shortness of breath, swelling legs Recommend slow position changes Current meds: amlodipine and metoprolol Assessment & Plan (11/18/2024 6:27 AM EDT): Please check blood pressure daily and record DASH diet Limit caffeine Take medication as directed Contact office if chest pain, pressure, dizziness, shortness of breath, swelling legs Recommend slow position changes Current meds: amlodipine and metoprolol Assessment & Plan (10/24/2024 5:32 PM EST): Please check blood pressure daily and record DASH diet Limit caffeine Take medication as directed Contact office if chest pain, pressure, dizziness, shortness of breath, swelling legs Recommend slow position changes Current meds: amlodipine and metoprolol BP elevation today in office, has not had her amlodipine for a few days at least Refills given Fu in 2 weeks for bp recheck Assessment & Plan (09/11/2024 7:09 AM EST): Please check blood pressure daily and record [...] in office in 2 weeks for this Assessment & Plan (08/27/2024 6:27 PM EST): Please check blood pressure daily and record [...] in office in 2 weeks for this Assessment & Plan (08/27/2024 6:53 AM EST): Please check blood pressure daily and record DASH diet Limit caffeine Take medication as directed Contact office if chest pain, pressure, dizziness, shortness of breath, swelling legs Recommend slow position changes Current meds: amlodipine, metoprolol Assessment & Plan (06/11/2024 12:53 PM EDT): Has not been taking both amlodipine and metoprolol We will start over with amlodipine at 10mg daily Fu in 2 weeks for blood pressure check Recheck in office 188/90 Assessment & Plan (01/17/2024 12:49 PM EDT): Currently taking metoprolol at 50mg daily, and amlodipine at 5 mg daily Assessment & Plan (12/21/2023 4:26 PM EDT): Will increase toprol XL to 50mg daily Fu in 3 weeks for blood pressure check Assessment & Plan (10/11/2023 5:20 PM EST): At goal, no changes in doses Rheumatoid arthritis, unspecified 06/15/2022 Assessment & Plan (09/11/2024 7:10 AM EST): Does not follow with Rheumatology Assessment & Plan (08/27/2024 6:58 AM EST): Does not follow with Rheumatology Assessment & Plan (06/11/2024 12:56 PM EDT): Does not follow with Rheumatology Assessment & Plan (04/16/2024 4:31 PM EDT): Does not follow with Rheumatology IESHA (iron deficiency anemia) 11/15/2021 Overview (10/11/2023): Last Assessment & Plan: Assessment: on iron supplement, stable CBC with diff: WBC 4.88 06/06/2023 RBC 4.68 06/06/2023 Hemoglobin 11.9 06/06/2023 Hematocrit 37.2 06/06/2023 MCV 79.5 06/06/2023 MCH 25.4 06/06/2023 MCHC 32.0 06/06/2023 RDW-CV 14.7 06/06/2023 Platelet Count 230 06/06/2023 Type 2 diabetes mellitus wit h hyperglycemia, with long-term current use of insulin 11/03/2021 Overview (10/11/2023): Last Assessment & Plan: Assessment: on insulin managed by endocrinology at [facility], saw COMMISSIONS MANAGER 06/08 and had insulin increased. OV scanned Hemoglobin A1C (%) Date Value 06/06/[address] Ballard notified of elevated BG Anesthesia team also notified. Per Dr. De Jesus... no further testing needed. We will evaluate on the day of surgery. Please make sure patient take at least half of basal insulin the day prior to surgery Assessment & Plan (01/27/2025 5:35 PM EDT): Check blood sugars daily, notify if <70 [...] bolus insulin, A1c: 9.4% 11/18/24, 08/13 10.1% Assessment & Plan (12/04/2024 12:55 PM EDT): Check blood sugars daily, notify if <70 [...] bolus insulin, A1c: 9.4% 11/18/24, 08/13 10.1% Assessment & Plan (11/18/2024 10:56 AM EDT): Check blood sugars daily, notify if <70 [...] bolus insulin, A1c: 9.4% 11/18/24, 08/13 10.1% Assessment & Plan (10/24/2024 5:34 PM EST): Check blood sugars daily, notify if <70 [...] and bolus insulin, A1c: 10.1% on 08/08/24 Compliance continues to be difficult, has CGM, but does not always have sensor on, she has been given basal/bolus insulin, but does not regularly use her bolus insulin Again today no sensor on, she was instructed to place sensor on when she gets home, and report back to office on 10/28/24 for us to see her readings, this was explained to her prior to leaving today's appt Assessment & Plan (09/11/2024 7:50 AM EST): Check blood sugars daily, notify if <70 [...] and bolus insulin, A1c: 10.1% on 08/08/24 Compliance continues to be difficult, has CGM, but does not always have sensor on, she has been given basal/bolus insulin, but does not regularly use her bolus insulin Assessment & Plan (08/27/2024 3:00 PM EST): Check blood sugars daily, notify if <70 [...] and bolus insulin, A1c: 10.1% on 08/08/24 Assessment & Plan (08/27/2024 6:58 AM EST): Check blood sugars daily, notify if <70 [...] and bolus insulin, A1c: 10.1% on 08/08/24 Assessment & Plan (06/11/2024 12:55 PM EDT): Will recheck A1c level Continue current insulin at this time Hx of non compliance with fu appts w specialist Assessment & Plan (04/16/2024 4:31 PM EDT): A1c is improving Assessment & Plan (01/17/2024 12:52 PM EDT): Is currently running in the 150-160 Is compliant with insulin, and she has been referred to dr mcmanus as well Assessment & Plan (10/11/2023 5:21 PM EST): Check blood sugars daily, notify if <70 [...] diet low in carbohydrates, and simple sugars. Ureterolithiasis 01/17/2021 Complex regional pain syndro me type 1 of right upper extremity 09/26/2017 Overview (10/11/2023): Added automatically from request for surgery [id number] Added automatically from request for surgery [id number] Renal cyst 01/10/2017 Overview (10/11/2023): Enlarging left renal Bosniak 2 cyst confirmed on MRI 2014. No evidence of enhancement. Stable on followup ultrasound Migraine 09/06/2011 Deviated nasal septum 11/30/2010 Vitamin D deficiency 11/12/2009 Assessment & Plan (01/27/2025 5:35 PM EDT): Check labs Mitral insufficiency and aortic stenosis 008 Resolved Problems Problem Noted Date Diagnosed Date Resolved Date 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, with long-term current use of insulin 12/04/2024 12/04/2024 History of neurogenic bladder 12/04/2024 01/27/2025 Assessment & Plan (01/27/2025 5:33 PM EDT): Is straight cathing herself 3 times daily Will check labs History of amputation ([facility]) 06/11/2024 06/24/2024 Chronic kidney disease, stage 3b 03/13/2024 09/11/2024 Assessment & Plan (06/11/2024 12:54 PM EDT): Has to get labs for nephrology and fu appt with them Discussed with pt the importance of adequte blood pressure and blood sugar control to help slow the progression of CKD Assessment & Plan (04/16/2024 4:30 PM EDT): Will re refer to Nephrology Urinary incontinence without sensory awareness 12/21/2023 12/21/2023 Acute cystitis without hematuria 11/23/2023 01/27/2025 Assessment & Plan (01/17/2024 12:51 PM EDT): Urine culture and UA w micro atb UTI symptoms 11/14/2023 01/17/2024 Assessment & Plan (01/17/2024 12:50 PM EDT): Pt to straight cath daily per urology and she will be getting further testing for her hydronephrosis Will order atb, and have her straight cath for her to have culture and UA w micro Fluids, rest 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 10/11/2023 06/24/2024 Chronic kidney disease, stage III (moderate) 04/01/2024 History of hysterectomy 10/11/202311/2023 Overview (10/11/2023): Cervical cancer MVP (mitral valve prolapse) 06/06/2023 06/24/2024 Overview (10/11/2023): Last Assessment & Plan: Assessment: states has very rare intermittent palpitations Denies chest pain No recent ECHO Polyneuropathy due to type 2 diabetes mellitus 06/15/2022 06/24/2024 Stage 3a chronic kidney disease 11/15/2021 06/24/2024 Overview (10/11/2023): Last Assessment & Plan: Assessment: follows with nephrology at Count Includes [facility] Repeat labs scanned Potassium 4.9 Cr [...] OTHER RACES >60 . - 40(L) 35 Assessment & Plan (12/21/2023 4:27 PM EDT): Needs a referral to nephrology Assessment & Plan (10/11/2023 5:21 PM EST): Recheck labs Chronic sinusitis 11/30/2010 07/22/2024 Pure hypercholesterolemia 11/12/2009 Asthma without status asthmaticus 11/13/2008 06/24/2024 Encounters Date Type Department Care Team Description 01/27/2025 2:40 PM EDT Office Visit [facility] [address] [place] [address] Latosha Olmstead NP Chronic kidney disease, stage 4 (severe) (HCC) (Primary Dx); Mixed hyperlipidemia ; Essential (primary) hypertension ; Burning with urination; UTI symptoms; Urinary tract infection symptoms; Type 2 diabetes mellitus with diabetic neuropathy, with long-term current use of insulin (HCC); History of neurogenic bladder; Neurogenic bladder; 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; Hyperparathyroidism, unspecified (HCC); B12 deficiency; Type 2 diabetes mellitus with hyperglycemia, with long-term current use of insulin (HCC); Vitamin D deficiency; Hypomagnesemia; Non compliance w medication regimen; Fatigue, unspecified type; Other fatigue 01/27/2025 Bamboo flowsheet [facility] [address] [place] [address] Latosha Olmstead NP 12/25/2024 Orders Only [facility] [address] [place] [phone] Gina Nicholson MD 12/05/2024 1:00 PM EDT Office Visit [facility] [address] [place] [address] Cory Angeles, DPAshok Cellulitis of right foot (Primary Dx); Laceration of right foot with foreign body, initial encounter; Diabetes mellitus due to underlying condition with diabetic polyneuropathy, with long-term current use of insulin (HCC) 12/05/2024 Travel 12/05/2024 Patient Outreach [place] [address] [place] [address] Ninfa Canela MA 12/04/2024 11:00 AM EDT Office Visit [facility] [address] [place] [address] Latosha Olmstead NP Acute renal failure, unspecified acute renal failure type (Primary Dx); Chronic kidney disease, stage 4 (severe) ([facility]); Essential (primary) hypertension ; Type 2 diabetes mellitus with diabetic neuropathy, with long-term current use of insulin ([facility]); History of neurogenic bladder; Type 2 diabetes mellitus with hyperglycemia, with long-term current use of insulin ([facility]); [facility] (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 ([facility]); Non compliance w medication regimen; Memory impairment 12/04/2024 Bamboo flowsheet [facility] [address] [place] [address] Latosha Olmstead NP 11/28/2024 Patient Outreach [place] [address] [place] [address] Ninfa Canela MA 11/25/2024 Orders Only [facility] [address] [place] [address] Demian Dorantes MD 11/24/2024 Abstract [facility] [address] [place] [address] Cory Angeles DPM 11/24/2024 External Result Encounter [facility] External Department Unsolicited Cory Angeles DPM 11/21/2024 Clinisync Result Encounter [facility] External Department Unsolicited Provider, Generic External Data 11/21/2024 Clinisync Result Encounter [facility] External Department Unsolicited Latosha Olmstead NP 11/18/2024 10:30 AM EDT Office Visit [facility] [address] [place] [address] Latosha Olmstead NP Encounter for subsequent annual wellness visit (AWV) in Medicare patient (Primary Dx); RSD (reflex sympathetic dystrophy); Type 2 diabetes mellitus with diabetic neuropathy, with long-term current use of insulin ([facility]); Essential (primary) hypertension ; Chronic kidney disease, stage 4 (severe) ([facility]); Type 2 diabetes mellitus with hyperglycemia, with long-term current use of insulin ([facility]); 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 ([facility]); Non compliance w medication regimen; Right foot pain; Chest pain, unspecified type; Continuous leakage of urine; Neurogenic bladder 11/18/2024 Bamboo flowsheet [facility] [address] [place] [address] Latosha Olmstead NP 11/14/2024 Clinisync Result Encounter [facility] External Department Unsolicited Latosha Olmstead NP 11/11/2024 Orders Only [facility] [address] [place] [address] Latosha Olmstead NP Right foot pain (Primary Dx) 11/11/2024 Telephone [facility] [address] [address] Latosha Olmstead NP 11/07/2024 Orders Only [facility] [address] [place] [address] Latosha Olmstead NP 10/30/2024 Telephone [facility] [address] [place] [address] Aleksey Delong RN dsme from Last 3 Months Immunizations Immunization Administration Dates Next Due Influenza, seasonal, injectable, preservative fr ee 06/03/2016 Moderna SARS-CoV-2 Vaccination 03/02/2021 PPD Test 06/23/2022,06/16/2022 Family History Medical History Relation Name Comments Heart disease Brother Heart disease Father Hypertension Father Relation Name Status Comments Brother Father Other grandma Social History Tobacco Use Types Packs/Day Years Used Date Smoking Tobacco: Never Smokeless Tobacco: Never Tobacco Cessation:Counseling Given: Yes Alcohol Use Standard Drinks/Week Comments Never 0 [...] 10/11/2023 How often do you attend chur or lutheran services? Never 10/11/2023 Do you belong to [...] Recorded Patient Health Questionnaire-2 Score 2 11/18/2024 [facility] Occupat ional [...] place to sleep or slept in a penitentiary (including now)? No 10/11/2023 Comments Unknown Sex [...] 12.8 oz) 01/27/2025 3:09 PM EDT Height 152.4 cm (5') 12/05/2024 1:31 PM EDT Body Mass Index 25.15 12/05/2024 1:31 PM EDT Plan of Treatment Upcoming Encounters Date Type Department Care Team (Late st Contact Info) Description 02/18/2025 1:40 PM EDT Office Visit [facility] [address] [place] [address] Latosha Olmstead NP [address] [place] [address] Health Maintenance Due Date Last Done Comments CT Colonography 1960 Colonoscopy 1960 FIT 1960 FOBT 1960 Sigmoidoscopy 1960 Pneumococcal Vaccine: 65+ Ye ars (1 of 2 - PCV) 1977 Diabetes: Hemoglobin A1C 02/17/2025 025, 11/18/2024, 08/08/2024, Additional history exists Mammogram 04/17/2025 04/17/2024, 0803/2024, 12/28/2022, Additional history exists Diabetes: Urine Protein Screening 08/28/2025 08/28/2024, 10/24/2023, 07/06/2022 Medicare Annual Wellness (AWV) 11/18/2025 0 11/18/2024, 11/18/2024, 10/24/2024, Additional history exists Diabetes: Retinopathy Screening 12/25/2025 12/25/2024, 11/07/2024, 10/02/2024 Colorectal Cancer Screening 04/28/2026 FIT-DNA 04/28/2026 04/28/2023 Influenza Vaccine Discontinued 06/03/2016 Procedures Procedure Name Priority Date/Time Associated Diagnosis Comments POCT URINALYSIS DIPSTICK Routine 01/27/2025 3:57 PM EDT Burning with urination UTI symptoms DIABETIC RETINOPATHY SCREENING - OU - BOTH EYES Routine 12/25/2024 11:02 AM EDT STRESS TEST Routine 11/25/2024 2:52 PM EDT XR FOOT 1-2 VIEWS RIGHT 11/24/2024 2:46 PM EDT [facility]HP IRON Routine 11/21/2024 11:42 AM EDT ALL BASIC METABOLIC PANEL Routine 11/21/2024 11:42 AM EDT ALL CBC WITH AUTO DIFF Routine 11:42 AM EDT ECG 12-LEAD 11/21/2024 11:31 AM EDT POCT GLYCOSYLATED HEMOGLOBIN (HGB A1C) Routine 11/18/2024 10:56 AM EDT Type 2 diabetes mellitus with hyperglycemia, with long-term current use of insulin (HCC) XR FOOT RT MIN 3V 11/14/2024 4:4 5 PM EDT DIABETIC RETINOPATHY SCREENING - OU - BOTH EYES Routine 11/07/2024 1:31 PM EDT MM TOMOSYNTHESIS SCREENING BI 04/17/2024 12:39 PM EDT from Last 3 Months or Most Recently Relevant to Health Maintenance Results * (ABNORMAL) POCT Urinalysis dipstick (01/27/2025 [...] CARE TEST ENTER/EDIT O RDERABLES Final Result * Diabetic Retinopathy Screening - OU - Both Eyes (12/25/2024 11:02 AM EDT) Anatomical Region Laterality Modality Head Other Gina Nicholson MD OPHTH PHOTOGRAPHY Final Resul t * STRESS TEST (11/25/2024 2:52 PM EDT) Anatomical Region Laterality Modality Radiographic Cristiana ging Demian Dorantes MD IMG XR PROCEDURES Final R esult * XR foot 1 or 2 views right (11/24/2024 2:46 PM EDT) Anatomical Region Laterality Modality Lower Extremities, Foot Right Radiogra phic Imaging 11/24/2024 2:46 PM EDT Impressions 11/24/2024 2:50 PM EDT Interval removal of the metallic foreign body. No residual foreign body identified. Residual soft tissue swelling noted. Impression dictated by: Raf Potter M.D.11/24/2024 2:48 PM Dictation Location: [place] [address] Transcribed By: [facility] 11/24/248 Dictated By: Raf Potter MD 11/24/241445 Signed By: <Electronically signed by Raf Potter MD in OV> 11/24/24 1448 Narrative 11/24/2024 2:50 PM EDT [place] [id number] XRay Report Signed Patient: Aislinn Wheeler MR#: [id number] 01 : 1960 Acct:[id number] Age/Sex: 64 / F ADM Date: 11/23/24 Loc: Room: [address] [place] [address] Type: ADM IN Attending Dr: Diane Smith [...] Procedure Note Radiology, Radiologist, MD - 11/24/2024 [place] [id number] XRay Report Signed Patient: Aislinn Wheeler MMR#: [id number] : 1960cct:[id number] Age/Sex: 64 / FADM Date: 11/23/24 Loc: Room: [id number]: ADM IN Attending Dr: Diane Smith MD [...] Raf Potter M.D.11/24/2024 2:48 PM Dictation Location: [place] [address] Transcribed By: [facility] 11/24/24 1448 Dictated By: Raf Potter MD 11/24/24 1446 Signed By: <Electronically signed by Raf Potter MD in OV> 11/24/24 1448 Cory Angeles DPM IMG XR PROCEDURES Final Res ult * [facility] IRON (11/21/2024 11:42 AM EDT) Pathologist [facility] IRON 59.0 50.0 - 170.0 ug/dL TBH 11/21/2024 11:4 2 AM EDT 11/21/2024 11:44 AM EDT Narrative CLINISYNC - 11/21/2024 12:43 PM EDT Latosha Olmstead REAL ESTATE ADMINISTRATIVE ASSISTANT CLINISYNC Final Result CLINISYNC TB * (ABNORMAL) ALL CBC WITH AUTO DIFF (11/21/2024 11:42 AM EDT) TB WBC 8.4 4.0 - 11.0 10 3/uL TBH TBH RBC 4.19(L) 4.20 - 5.40 10 6/uL TBH TBH HGB 10.9(L) 12.0 - 16.0 g/dL TBH TBH HCT 33.8(L) 36.0 - 48.0 % TBH TBH MCV 80.7(L) 81.0 - 99.0 fL TBH TBH MCH 26.0(L) 26.7 - 34.0 pg TBH TBH MCHC 32.2 29.9 - 35.2 g/dL TBH TBH RDW 13.4 11.0 - 15.0 % TBH TBH PLT 289 150 - 450 10 3/uL TBH TBH MPV 10.7 9.5 - 13.5 fL TBH NEUTROPHILS PERCENT AUTO 65.0 43.0 - 75.0 % TBH LYMPHOCYTES PERCENT AUTO 26.3 20.5 - 60.0 % TBH MONOCYTES PERCENT AUTO 5.6 1.7 - 12.0 % TBH TBH EO % 1.9 0.9 - 7.0 % TBH BASOPHILS PERCENT AUTO 0.6 0.2 - 2.0 % TBH IMMATURE GRANULOCYTES PCT AUTO 0.6(H) 0.0 - 0.5 % TBH NEUTROPHILS ABSOLUTE AUTO 5.5 1.4 - 6.5 10 3/uL TBH LYMPHOCYTES ABSOLUTE AUTO 2.2 1.2 - 3.8 10 3/uL TBH MONOCYTES ABSOLUTE AUTO 0.5 0.3 - 0.8 10 3/uL TBH TBH EO # 0.2 0.0 - 0.7 10 3/uL TBH BASOPHILS ABSOLUTE AUTO 0.1 0.0 - 0.1 10 3/uL TBH IMMATURE GRANULOCYTES ABS AUTO 0.05(H) 0.00 - 0.03 10 3/uL TBH 11/21/2024 11:4 2 AM EDT 11/21/2024 11:44 AM EDT Narrative CLINISYNC - 11/21/2024 11:50 AM EDT us Latosha Olmstead NP CLINISYNC Final Result [facility] * (ABNORMAL) ALL BASIC METABOLIC PANEL (11/21/2024 11:42 AM EDT) SODIUM 136 136 - 145 mmol/L TBH POTASSIUM 5.9(H) 3.5 - 5.1 mmol/L TBH CHLORIDE 104 98 - 107 mmol/L TBH CARBON DIOXIDE 21.8 21.0 - 32.0 mmol/L TBH ANION GAP 16.1 TBH GLUCOSE 177(H) 74 - 106 mg/dL TBH BLOOD UREA NITROGEN 55.0(H) 7.0 - 18.0 mg/dL TBH CREATININE 3.26(H) 0.55 - 1.02 mg/dL TBH TBH EGFR-AF SPANISH 17(L) >=60 mL/min/1.7 3m 2 TBH TBH EGFR-NON AF SPANISH 14(L) >=60 mL/min/1.7 3m 2 TBH BUN CREATININE RATIO 16.9 TBH CALCIUM 8.7 8.5 - 10.1 mg/dL TBH 11/21/2024 11:4 2 AM EDT 11/21/2024 11:44 AM EDT Narrative CLINISYNC - 11/21/2024 11:57 AM EDT Generic External Data Provider [facility] * ECG 12-LEAD (11/21/2024 11:31 AM EDT) Anatomical Region Laterality Modality Other 11/21/2024 11:3 1 AM EDT Narrative 11/22/2024 3:11 [place] [address] Electrocardiograph Report Signed Patient: AISLINN WHEELER MR#: [id number] : 1960 Acct:[id number] Age/Sex: 64 / F ADM Date: 11/21/24 Loc: PST Attending Dr: Ramon Enrique D.P.M. Ordering Physician: Ramon Enrique D.P.M. 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 Measurements Intervals [place] Rate: 57 P: 52 WI: 183 QRS: 45 QRSD: 82 T: 54 QT: 452 QTc: 441 Interpretive Statements SINUS BRADYCARDIA Otherwise normal ECG Compared to ECG 09/04/2024 13:57:55 No significant change Electronically Signed On 11-22-2024 15:11:41 EDT by PADILLA MUKHERJEE M.D. Dictated By: PADILLA MUKHERJEE Signed By: 11/22/241510 DD/ 30 TD/TT: Apparel Cutter: Procedure Note Radiology, Radiologist, - 11/22/2024 [place] [address] Electrocardiograph Report Signed Patient: AISLINN WHEELER [facility]#: [id number] : 1960cct:[id number] Age/Sex: 64 / FADM Date: 11/21/24 Loc: PST Attending Dr: Ramon Enrique D.P.M. Ordering Physician: Ramon Enrique D.P.M. 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 Measurements Intervals [place] Rate: 57 P: 52 WI: 183 QRS: 45 QRSD: 82 T: 54 QT: 452 QTc: 441 Interpretive Statements SINUS BRADYCARDIA Otherwise normal ECG Compared to ECG 09/04/2024 13:57:55 No significant change Electronically Signed On 11-22-2024 15:11:41 EDT by PADILLA MUKHERJEE M.D. Dictated By: PADILLA MUKHERJEE Signed By:11/22/241510 DD/ 30 TD/TT: Apparel Cutter: us Generic External Data Provider CLINISYNC IMAGING Final Result * (ABNORMAL) POCT glycosylated hemoglobin (Hb A1C) docked device (11/18/2024 10:56 AM EDT) Hemoglobin A1C 9.4 Blood Venous blood specimen / Unknown 11/18/2024 10:56 AM EDT Latosha Olmstead NP POINT OF CARE TEST ENTER/EDIT O RDERABLES Edited Result - Final * XR FOOT RT MIN 3V (11/14/2024 4:45 PM EDT) Anatomical Region Laterality Modality Other 11/14/2024 4:45 PM EDT Narrative 11/14/2024 4:47 [place] [address] XRay Report Signed Patient: AISLINN WHEELER MR#: [id number] : 1960 Acct:[id number] Age/Sex: 64 / F ADM Date: 11/14/24 Loc: RAD Attending Dr: Latosha Olmstead NP Ordering Physician: Latosha Olmstead NP Date of Service: 11/14/24 Procedure(s): XR foot RT min 3V Accession Number(s): [id number] cc: Latosha Olmstead NP The [place] [id number] Patient Name: AISLINN WHEELER MRN: [id number] date: 1960 Sex: F Assigned Patient Location: RAD Current Patient Location: RAD Accession/Order Number: [id number] Exam Date: 11/14/2024 16:41 Report Date: 11/14/2024 16:45 At the request of: LATOSHA OLMSTEAD NP Procedure: XR foot RT min 3V RIGHT FOOT - 3 views CLINICAL HISTORY: Stepped on something one week ago. Right lateral foot pain and redness and swelling. COMPARISON: None FINDINGS: Soft tissue swelling is seen particularly involving the fifth digit with 2 linear radio opaque foreign bodies noted in the region of the proximal phalanx of the fifth digit one measuring approximately 17 mm in length the other measuring approximately 7 mm in length. No acute bony process is seen. No plain film evidence of osteomyelitis. Mild degenerative changes particularly involving the MTP joint of the first digit. No bony erosions. XR/XR foot RT min 3V IMPRESSION: SOFT TISSUE SWELLING IS SEEN INVOLVING THE FIFTH DIGIT WITH 2 LINEAR RADIOPAQUE FOREIGN BODIES NOTED. A FRACTURED SEWING PIN IS SUSPECTED. Impression dictated by: Kyree White Jr., D.O.11/14/2024 4:45 PM Dictation Location: [place] [address] Electronically authenticated by: [id number] Y Date: 11/14/2024 16:45 Dictated By: Kyree White M.D. Signed By: 11/14/241646 DD/ 44 TD/TT: Apparel Cutter: Procedure Note Radiology, Radiologist, MD - 11/14/2024 [place] [address] XRay Report Signed Patient: AISLINN WHEELER MMR#: [id number] : 1960cct:[id number] Age/Sex: 64 / FADM Date: 11/14/24 Loc: [facility] Attending Dr: Latosha Olmstead NP Ordering Physician: Latosha Olmstead NP Date of Service: 11/14/24 Procedure(s): XR foot RT min 3V Accession Number(s): [id number] cc: Latosha Olmstead NP The [place] [id number] Patient Name: AISLINN WHEELER MRN: [id number] date: 1960 Sex: F Assigned Patient Location: [facility] Current Patient Location: [facility] Accession/Order Number: [id number] Exam Date: 11/14/2024 16:41 Report Date: 11/14/2024 16:45 At the request of: LATOSHA OLMSTEAD NP Procedure: XR foot RT min 3V RIGHT FOOT - 3 views CLINICAL HISTORY: Stepped on something one week ago. Right lateral footpain and redness and swelling. COMPARISON: None FINDINGS: Soft tissue swelling is seen particularly involving the fifth digit with 2 linear radio opaque foreign bodies noted in the region of the proximalphalanx of the fifth digit one measuring approximately 17 mm in length the other measuring approximately 7 mm in length. No acute bony process is seen.No plain film evidence of osteomyelitis. Mild degenerative changesparticularly involving the MTP joint of the first digit. No bony erosions. XR/XR foot RT min 3V IMPRESSION: SOFT TISSUE SWELLING IS SEEN INVOLVING THE FIFTH DIGIT WITH 2 LINEAR RADIOPAQUE FOREIGN BODIES NOTED. A FRACTURED SEWING PIN IS SUSPECTED. Impression dictated by: Kyree White Jr., D.Laura11/14/2024 4:45 PM Dictation Location: [place] [address] Electronically authenticated by: [id number] Y Date: 6:45 Dictated By: Kyree White M.D. Signed By:11/14/241646 DD/ 44 TD/TT: Apparel Cutter: us Latosha Olmstead NP [facility] IMAGING Final Result * Diabetic Retinopathy Screening - OU - Both Eyes (11/07/2024 1:31 PM EDT) Anatomical Region Laterality Modality Head Other us Latosha Olmstead NP OPHTH PHOTOGRAPHY Final Result * MM TOMOSYNTHESIS SCREENING BI (04/17/2024 12:39 PM EDT) Anatomical Region Laterality Modality Other 04/17/2024 12:3 9 PM EDT Narrative 04/17/2024 12:40 PM EDT The [address] [address] Mammography Report Signed Patient: AISLINN WHEELER MR#: [id number] : 1960 Acct:[id number] Age/Sex: 63 / F ADM Date: 04/17/24 Loc: MAMMO Attending Dr: Latosha Olmstead NP Ordering Physician: Latosha Olmstead NP Results: Date of Service: 04/17/24 Follow Up: Procedure(s): MM tomosynthesis screening BI Accession Number(s): [id number] cc: Latosha Olmstead REAL ESTATE ADMINISTRATIVE ASSISTANT Patient Name: AISLINN WHEELER MR#: [id number] : 1960 Exam Date: 04/17/2024 Ordering Doctor: [...] brain cancer at age 58. LOCATION: [facility] BREAST COMPOSITION: The breasts are heterogeneously [...] Signed By: 04/17/24 1240 DD/ 1239 TD/TT: Apparel Cutter: Procedure Note Radiology, Radiologist, MD - 04/17/2024 [place] [address] Mammography Report Signed Patient: AISLINN WHEELER MMR#: [id number] : 8Acct:[id number] Age/Sex: 63 / FADM Date: 04/17/24 Loc: MAMMO Attending Dr: Latosha Olmstead NP Ordering Physician: Latosha Olmstead NPResults: Date of Service: 04/17/24Follow Up: Procedure(s): MM tomosynthesis screening BI Accession Number(s): [id number] cc: Latosha Olmstead NP Patient Name: AISLINN WHEELER MR#: [id number] : 1960 Exam Date: 04/17/2024 Ordering Doctor: KIARA OLMSTEAD COMMISSIONS MANAGER RADIOLOGY REPORT PROCEDURE: MM TOMOSYNTHESIS SCREENING BI [...] brain cancer at age 58. LOCATION: [facility] BREAST COMPOSITION: The breasts are heterogeneously [...] M.D. Signed By:04/17/24 1240 DD/ 1239 TD/TT: Apparel Cutter: Latosha Olmstead NP [facility] IMAGING Final Result from Last 3 Months or Most Recently Relevant to Health Maintenance Insurance [facility] MEDICARE ADVANTAGE Care Teams French Translator Relationship Specialty Start Date End Date Kofi Gotti MD [address] [place] [address] PCP - General Family Medicine 06/20/24 Latosha Olmstead NP [address] [place] [address] Nurse Practitioner Family Medicine 06/11/24 Ninfa Canela MA Family Medicine 09/13/24
--- OUTSIDE RECORDS SUMMARY | 2025-01-30 09:09 | XMS_ITS | Encounter Summary ---
Author Organization [facility] Address [address] [place] [address] Care Team Providers Care Laboratory Machinist Name Role Phone Latosha Olmstead NP Unavailable [phone] Kofi Gotti MD Primary Care Provider [phone] Ninfa Canela MA Unavailable Unavailable Encounter Details Date Type Department Care Team (Late st Contact Info) Description 11/25/2024 Orders Only [facility] [address] [place] [address] [place] [address] [place], [place] [id number] Social History Tobacco Use Types Packs/Day Years [...] often do you attend chur ch or mormonism services? Never 10/11/2023 Do you belong to any clubs o r organizations such as zoroastrian groups, unions, fraternal or athletic groups, or [...] Recorded Patient Health Questionnaire-2 Score 2 [facility] Answer Date Recorded [...] or slept in a prison (including now)? No 10/11/2023 Comments Unknown Sex and Gender Information Value Date Recorded Sex Assigned at Not on file Legal Sex Female 6:55 PM EDT Gender Identity Not on file Sexual Orientation Not on file documented as of this encounter Plan of Treatment Upcoming Encounters Date Type Department Care Team (Late st Contact Info) Description 02/18/2025 1:40 PM EDT [facility] Visit [facility] [address] [place] [address] Latosha Olmstead NP [address] [place] [address] documented as of this encounter Procedures Procedure Name Priority Date/Time Associated Diagnosis Comments STRESS TEST Routine 11/25/2024 2:52 PM EDT documented in this encounter Results * STRESS TEST (11/25/2024 2:52 PM EDT) Anatomical Region Laterality Modality Radiographic Cristiana ging Demian Dorantes MD IMG XR PROCEDURES Final R esult documented in this encounter Visit Diagnoses Not on filedocumented in this encounter Additional Health Concerns Assessment Noted Time PHQ-9 Depression Total Score: 10 025 10:35 AM EDT documented as of this encounter Care Teams Laboratory Machinist Relationship Specialty Start Date End Date Naderer, Kofi, MD [address] [place] [address] PCP - General Family Medicine 06/20/24 Latosha Olmstead NP [address] [place] [address] Nurse Practitioner Family Medicine 06/11/24 Ninfa Canela MA Family Medicine 09/13/24 documented as of this encounter
--- OUTSIDE RECORDS SUMMARY | 2025-01-30 09:09 | XMS_ITS | Encounter Summary ---
Author Organization [facility] Address [facility] [place] [address] Care Team Providers Care Driller And Broacher Name Role Phone Lisa Porras MD Unavailable Latosha Olmstead Primary Care Provider Latosha Chanel Unavailable Unavailable Source Comments In the event this information is protected by the Federal Confidentiality of Alcohol and Drug AbusePatient Records regulations: The Federal rules restrict any use of the information to criminally investigate or prosecute any alcohol or drug abuse patient.[facility] Encounter Details Date Type Department Care Team (Late st Contact Info) Description 07/05/2023 Patient Msg Urology [address] [place], [place] [id number] Manolo Ballard MD [address] [place] [address] Pathology Social History Tobacco Use Types Packs/Day Years Used Date Smoking Tobacco: Never Smokeless Tobacco: Never Alcohol Use Standard Drinks/Week Comments Yes 0 (1 standard drink = 0.6 oz pur e alcohol) rarely--holiday or special [facility] Area Deprivation Index Answer Date Al rded National Score (1-100), lower number is lower [facility] 89 05/17/2023 State Score (1-10), lower number is lower risk 8 05/17/2023 Data from: https://www.neighborhoodatlas.[facility].edu/. Last address used for calculation [address] [...] of Assessment Author No 06/23/2023 6:06 PM EDT Reyes Reno RN * Are you blind or do you have serious difficulty seeing, even when wearing glasses? Answer Date of Assessment Author No 06/23/2023 6:06 PM EDT Reyes Reno RN * Do you have serious difficulty walking or climbing stairs? Answer Date of Assessment Author No 06/23/2023 6:06 PM EDT Reyes Reno RN * Do you have difficulty dressing or bathing? Answer Date of Assessment Author No 06/23/2023 6:06 PM EDT Reyes Reno RN * Because of a physical, mental, or emotional condition, do you have difficulty doing errands alone such as visiting a doctor's office or shopping? Answer Date of Assessment Author No 06/23/2023 6:06 PM EDT Reyes Reno RN documented as of this encounter Mental Status * Because of a physical, mental, or emotional condition, do you have serious difficulty concentrating, remembering, or making decisions? Answer Entry Date Author No 06/23/2023 6:06 PM EDT Reyes Reno RN documented in this encounter Plan of Treatment Not on file documented as of this encounter Visit Diagnoses Not on filedocumented in this encounter Additional Health Concerns Infection Onset Date Last Indicated Resolved Time COVID-19 Rule-Out 08/31/2023 08/31/2023 08/31/2023 5:18 AM EST documented as of this encounter Care Teams Driller And Broacher Relationship Specialty Start Date End Date Latosha Olmstead [address] [place] [address] PCP - General 05/17/23 Lisa Porras MD [address] [place] [address] Referring Urology 05/11/23 Latosha Olmstead [facility] [address] [place] [id number] Referring 01/04/24 documented as of this encounter
--- OUTSIDE RECORDS SUMMARY | 2025-01-30 09:09 | XMS_ITS | Encounter Summary ---
Author Organization [facility] Address [address] [place] [address] Care Team Providers Care Fish Bin Tender Name Role Phone Latosha Olmstead NP Unavailable [phone] Kofi Gotti MD Primary Care Provider [phone] Ninfa Canela MA Unavailable Unavailable Encounter Details Date Type Department Care Team (Late st Contact Info) Description 10/24/2024 Abstract [facility] [address] [place] [address] Latosha Olmstead, PROCESS CONTROL ENGINEER [address] [place] [address] Social History Tobacco Use Types Packs/Day Years [...] often do you attend chur ch or catholic services? Never 10/11/2023 Do you belong to any clubs o r organizations such as yarsanism groups, unions, fraternal or athletic groups, or [...] Recorded Patient Health Questionnaire-2 Score 0 10/24/2024 [facility] Answer Date Recorded [...] place to sleep or slept in a retirement (including now)? No 10/11/2023 Comments Unknown Sex and Gender Information Value Date Recorded Sex Assigned at Not on file Legal Sex Female 6:55 PM EDT Gender Identity Not on file Sexual Orientation Not on file documented as of this encounter Functional Status * Over the past 2 weeks, how often have you been bothered by any of the following problems? Question Answer Date of Assessment Author Little interest or pleasure in doing things Not at all 10/24/2024 3:28 PM ARMEN VENTURA A Feeling down, depressed, or hopeless Not at all 10/24/2024 3:28 PM ARMEN VENTURA A Patient Health Questionnaire -2 Score 0 10/24/2024 3:28 PM ARMEN VENTURA A * Question Answer Date of Assessment Author Trouble falling or staying asleep, or sleeping too much Nearly every day 10/24/2024 3:28 PM ARMEN VENTURA A Feeling tired or having little energy Several days 10/24/2024 3:28 PM ARMEN VENTURA A Poor appetite or overeating Several days 10/24/2024 3:28 PM ARMEN VENTURA A Feeling bad about yourself - or that you are a failure or have let yourself or your family down Several days 10/24/2024 3:28 PM ARMEN VENTURA A Trouble concentrating on things, such as reading the newspaper or watching television Several days 10/24/2024 3:28 PM EST ARMEN SULLIVAN A Moving or speaking so slowly that other people could have noticed? Or the opposite - being so fidgety or restless that you have been moving around a lot more than usual. Several days 10/24/2024 3:28 PM EST ARMEN SULLIVAN A Thoughts that you would be better off or hurting yourself in some way Not at all 10/24/2024 3:28 PM EST MERRY SULLIVAN Patient Health Questionnaire-9 Score 8 10/24/2024 3:28 PM EST TETE SULLIVAN SHA documented as of this encounter Plan of Treatment Upcoming Encounters Date Type Department Care Team (Late st Contact Info) Description 02/18/2025 1:40 PM EDT Office Visit [facility] [address] [place] [address] Latosha Olmstead NP [address] [place] [address] documented as of this encounter Visit Diagnoses Not on filedocumented in this encounter Additional Health Concerns Assessment Noted Time PHQ-9 Depression Total Score: 8 10/25/19 3:28 PM EST documented as of this encounter Care Teams Fish Bin Tender Relationship Specialty Start Date End Date Kofi Gotti MD [address] [place] [address] PCP - General Family Medicine 06/20/24 Latosha Olmstead NP [address] [place] [phone] Nurse Practitioner Family Medicine 06/11/24 Ninfa Canela MA Family Medicine 09/13/24 documented as of this encounter
--- OUTSIDE RECORDS SUMMARY | 2025-01-30 09:09 | XMS_ITS | Encounter Summary ---
Author Organization [facility] Address [address] [place] [address] Care Team Providers Care Spud Driller Name Role Phone Latosha Olmstead NP Unavailable [phone] Kofi Gotti MD Primary Care Provider [phone] Ninfa Canela MA Unavailable Unavailable Encounter Details Date Type Department Care Team (Late st Contact Info) Description 01/27/2025 Bamboo flowsheet [facility] [address] [place] [phone] Latosha Olmstead, BURR MACHINE OPERATOR [address] [place] [address] Social History Tobacco Use Types Packs/Day Years [...] often do you attend chur ch or yarsanism services? Never 10/11/2023 Do you belong to [...] Recorded Patient Health Questionnaire-2 Score 2 11/18/2024 [facility] Questionnaire Answer Date Recorded [...] Office Visit [facility] [address] [place] [address] Latosha Olmstead NP [address] [place] [address] documented as of this encounter Visit Diagnoses Not on filedocumented in this encounter Additional Health Concerns Assessment Noted Time PHQ-9 Depression Total Score: 10 025 10:35 AM EDT documented as of this encounter Care Teams Spud Driller Relationship Specialty Start Date End Date Kofi Gotti MD [address] [place] [address] PCP - General Family Medicine 06/20/24 Latosha Olmstead NP [address] [place] [address] Nurse Practitioner Family Medicine 06/11/24 Ninfa Canela MA Family Medicine 09/13/24 documented as of this encounter
--- OUTSIDE RECORDS SUMMARY | 2025-01-30 09:09 | XMS_ITS | Encounter Summary ---
Author Organization [facility] Address [address] [place] [address] Care Team Providers Care Automatic Thread Winder Name Role Phone Latosha Olmstead NP Unavailable Kofi Gotti MD Primary Care Provider [phone] Ninfa Canela MA Unavailable Unavailable Encounter Details Date Type Department Care Team (Late st Contact Info) Description 12/25/2024 Orders Only [facility] [address] [place] [address] [place] [address] [place] [address] Social History Tobacco Use Types Packs/Day Years [...] often do you attend chur ch or scientology services? Never 10/11/2023 Do you belong to [...] Recorded Patient Health Questionnaire-2 Score 2 11/18/2024 [facility] - Occupational [...] place to sleep or slept in a 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 (including now)? No 10/11/2023 Comments Unknown Sex [...] Office Visit [facility] [address] [place] [address] Latosha Olmstead NP [address] [place] [address] documented as of this encounter Procedures Procedure Name Priority Date/Time Associated Diagnosis Comments DIABETIC RETINOPATHY SCREENING - OU - BOTH EYES Routine 12/25/2024 11:02 AM EDT documented in this encounter Results * Diabetic Retinopathy Screening - OU - Both Eyes (12/25/2024 11:02 AM EDT) Anatomical Region Laterality Modality Head Other us Gina Nicholson MD OPHTH PHOTOGRAPHY Final Resul t documented in this encounter Visit Diagnoses Not on filedocumented in this encounter Additional Health Concerns Assessment Noted Time PHQ-9 Depression Total Score: 10 025 10:35 AM EDT documented as of this encounter Care Teams Automatic Thread Winder Relationship Specialty Start Date End Date Kofi Gotti MD [address] [place] [address] PCP - General Family Medicine 06/20/24 Latosha Olmstead NP [address] [place] [address] Nurse Practitioner Family Medicine 06/11/24 Ninfa Canela MA Family Medicine 09/13/24 documented as of this encounter
--- OUTSIDE RECORDS SUMMARY | 2025-01-30 09:09 | XMS_ITS | Encounter Summary ---
Author Organization [facility] Address [address] [place] [address] Care Team Providers Care Senior Etl Developer Name Role Phone Latosha Olmstead NP Unavailable [phone] Kofi Gotti MD Primary Care Provider [phone] Ninfa Canela MA Unavailable Unavailable Encounter Details Date Type Department Care Team (Late st Contact Info) Description 10/03/2024 Orders Only [facility] [address] [place] [address] Latosha Olmstead, STANDARD MACHINE STITCHER [address] [place] [address] Social History Tobacco Use Types Packs/Day Years [...] often do you attend chur ch or buddhism services? Never 10/11/2023 Do you belong to any clubs o r organizations such as jew groups, unions, fraternal or athletic groups, or [...] Recorded Patient Health Questionnaire-2 Score 2 01/17/2024 [facility] Questionnaire Answer Date [...] Office Visit [facility] [address] [place] [address] Latosha Olmstead NP [address] [place] [address] documented as of this encounter Procedures Procedure Name Priority Date/Time Associated Diagnosis Comments DIABETES EYE EXAM Routine 10/03/2024 9:49 AM EST documented in this encounter Results * Diabetes Eye Exam (10/03/2024 9:49 AM EST) Latosha Olmstead NP HEALTH MAINTENANCE Final Result documented in this encounter Visit Diagnoses Not on filedocumented in this encounter Additional Health Concerns Assessment Noted Time PHQ-9 Depression Total Score: 6 10/11/19 24 3:16 PM EST documented as of this encounter Care Teams Senior Etl Developer Relationship Specialty Start Date End Date Kofi Gotti MD [address] [place] [address] PCP - General Family Medicine 06/20/24 Latosha Olmstead NP [address] [place] [address] Nurse Practitioner Family Medicine 06/11/24 Ninfa Canela MA Family Medicine 09/13/24 documented as of this encounter
--- OUTSIDE RECORDS SUMMARY | 2025-01-30 09:09 | XMS_ITS ---
Author Organization [facility] Address [address] [place] [address] Care Team Providers Care Safekeeping Clerk Name Role Phone Latosha Olmstead NP Unavailable [phone] Kofi Gotti MD Primary Care Provider [phone] Ninfa Canela MA Unavailable Unavailable Chronic Care Management (CCM) Status:Enrolled (Active) Start date:09/13/2024 Enrollment date:09/13/2024 Overview Please assess for Care Management needs. 09/13/24, 8:18 AM - Ninfa Canela MA- Patient gives verbal consent to be enrolled in CCM Program and understands there could be a bill for this service. Case Team Name Relationship Phone Ninfa Canela MA(Responsible Staff) Continued Care and Services Coordination
[2025-01-30 09:50] LABS: Basophils Absolute Auto 0.1 10^3/uL (0.0-0.1); Basophils Percent Auto 0.6 % (0.2-2.0); Eosinophils Absolute Auto 0.1 10^3/uL (0.0-0.7); Eosinophils Percent Auto 0.8 % (0.9-7.0); Hematocrit 30.9 % (36.0-48.0); Hemoglobin 9.8 g/dL (12.0-16.0); Immature Granulocytes Abs Auto 0.15 10^3/uL (0.00-0.03); Immature Granulocytes Pct Auto 1.7 % (0.0-0.5); Lymphocytes Absolute Auto 1.6 10^3/uL (1.2-3.8); Lymphocytes Percent Auto 17.5 % (20.5-60.0); Mean Corpuscular HGB Conc 31.7 g/dL (29.9-35.2); Mean Corpuscular Hemoglobin 25.3 pg (26.7-34.0); Mean Corpuscular Volume 79.8 fL (81.0-99.0); Mean Platelet Volume 11.1 fL (9.5-13.5); Monocytes Absolute Auto 0.5 10^3/uL (0.3-0.8); Monocytes Percent Auto 5.9 % (1.7-12.0); Neutrophils Absolute Auto 6.7 10^3/uL (1.4-6.5); Neutrophils Percent Auto 73.5 % (43.0-75.0); Platelet Count 295 10^3/uL (150-450); Red Blood Count 3.87 10^6/uL (4.20-5.40); Red Cell Distribution Width 13.6 % (11.0-15.0); White Blood Count 9.1 10^3/uL (4.0-11.0)
[2025-01-30 11:11] LABS: Percent Iron Saturation 15.8 %
[2025-01-30 11:49] LABS: Free T4 0.98 ng/dL (0.76-1.46)
[2025-01-30 11:52] LABS: Alanine Aminotransferase 22 U/L (14-59); Albumin Globulin Ratio 0.4; Albumin Level 2.3 g/dL (3.4-5.0); Alkaline Phosphatase 149 U/L (46-116); Anion Gap 14.8; Aspartate Amino Transferase 11 U/L (15-37); Bilirubin Direct 0.1 mg/dL (0.0-0.2); Bilirubin Total 0.2 mg/dL (0.2-1.0); Carbon Dioxide 22.5 mmol/L (21.0-32.0); Chloride 101 mmol/L (98-107); Estimated GFR (African America 18 (>=60 mL/min/1.73m^2); Estimated GFR (Non-African Ame 15 (>=60 mL/min/1.73m^2); Globulin 6.2 g/dL; Glucose 378 mg/dL (74-106); Magnesium 1.6 mg/dL (1.8-2.4); Phosphorus 4.6 mg/dL (2.6-4.7); Sodium 131 mmol/L (136-145); Thyroid Stimulating Hormone 0.429 uIU/mL (0.358-3.740); Total Protein 8.5 g/dL (6.4-8.2)
[2025-01-30 11:57] LABS: Potassium 7.3 mmol/L (3.5-5.1)
[2025-01-31 04:07] LABS: Vitamin B12 320 pg/mL (232-1245)
[2025-01-31 05:07] LABS: Transferrin 184 mg/dL (192-364)
[2025-01-31 11:08] LABS: PTH, Intact 145 pg/mL (15-65)
== END 2025-01-30 09:06 | disposition home or self-care (01) ==
LOC: LAB 09:05
PROVIDERS: PCP Nurse Practitioner; Visit Provider Nurse Practitioner
DX: I12.9 Hypertensive chronic kidney disease with stage 1 through stage 4 chronic kidney disease, or unspecified chronic kidney disease (principal); N18.4 Chronic kidney disease, stage 4 (severe); N31.9 Neuromuscular dysfunction of bladder, unspecified; M81.0 Age-related osteoporosis without current pathological fracture; R53.83 Other fatigue
CPT/HCPCS: 36415; 80048; 80076; 82306; 82607; 82728; 82746; 83540; 83550; 83735; 83970; 84100; 84439; 84443; 84466; 85025

== ENCOUNTER 2025-01-30 16:50 | Emergency (ER) | payer MEDICARE, SELFPAY ==
--- NOTE | 2025-01-30 16:56 | ECG_ITS ---
[facility] Test Date: 2025-01-30 Pat Name: AISLINN CARNES Department: Room: - Gender: Female Apprenticeship Training Representative: : 1960 Requested By: [id number] Order Number: [id number] Reading MD: PADILLA MUKHERJEE M.D. Measurements Intervals Braman Rate: 77 P: 51 MI: 168 QRS: 48 QRSD: 70 T: 60 QT: 388 QTc: 419 Interpretive Statements 1100 Sinus rhythm 9110 normal ECG Compared to ECG 11/21/2024 11:31:24 Sinus bradycardia no longer present Electronically Signed On 01-30-2025 18:39:41 EDT by PADILLA MUKHERJEE M.D.
[2025-01-30 16:59] VITALS: BP 153/85; PULSE 80; TEMP 36.5; O2SAT 95; BMI 53.8
[2025-01-30 17:05] VITALS: O2SAT 97
--- NOTE | 2025-01-30 17:07 | ED_ITS ---
HPI - Recheck/Abnormal Lab/Rx General Chief Complaint: Recheck/Abnormal Lab/Rx Stated Complaint: POTASSIUM/LAB RECHECK Time Seen by Provider: 01/30/25 16:56 Source: patient Mode of arrival: walk-in History of Present Illness HPI narrative: 64 year old female presents to the ED for abnormal labs. She had outpatient testing today. States she was told to come to the ED for a potassium level of 7.3. She has been having episodes of dizziness, falls for some time which is why she made the appointment. She has hx CKD. Denies fever, chills, DAO, vision changes. Denies CP, SOB, palpitations. Denies N/V/D, constipation, dysuria. The patient does self-cath to help empty her bladder. Denies injury with the falls. Pt did have a urinalysis completed a few days ago. Her culture report was sent by her pcp. Urinalyis was positive for three organisms; sensitivity showed Levaquin or Bactrim will treat the three organisms. Related Data Home Medications ?Medication ?Instructions ?Recorded ?Confirmed insulin lispro 100 unit/mL 1 sliding scale dose subcut QID 05/12/23 01/30/25 subcutaneous pen pregabalin 150 mg capsule 150 mg PO Q8H 05/12/2301/30 hydrocodone 7.5 mg-acetaminophen 1 tab PO Q8H PRN pain 07/07/23 01/30/25 325 mg tablet ferrous sulfate 325 mg (65 mg 325 mg PO DAILY 01/10/24 01/30/25 iron) tablet (FeroSul) B-complex with vitamin C 1 cap PO DAILY 04/26/2401/19 (Support-500 capsule) fluticasone propionate 50 1 spray intranasal DAILY PRN 04/26/24 01/30/25 mcg/actuation nasal allergies spray,suspension (24 Hour Allergy Relief) metoprolol succinate 50 mg 50 mg PO DAILY 04/26/2408/14 tablet,extended release 24 hr amlodipine 5 mg tablet 10 mg PO DAILY 11/21/2401/19 Previous Rx's ?Medication ?Instructions ?Recorded insulin glargine 100 unit/mL (3 28 unit (0.28 mL) subc ut QPM #0 mL 01/11/24 mL) subcutaneous pen (Lantus Solostar U-100 Insulin) atorvastatin 20 mg tablet (Lipitor) 20 mg PO DAILY #30 tabs 08/11/24 nitroglycerin 0.4 mg sublingual 0.4 mg sublingual Q5M PRN Pain #10 08/11/24 tablet tabs levofloxacin 750 mg tablet 750 mg PO DAILY 7 days #7 t abs 01/30/25 Allergies Allergy/AdvReac Type Severity Reaction Status Date / Time No Known Drug Allergies Allergy Verified 01/30/25 16:59 Review of Systems ROS Constitutional Denies: fever, chills or fatigue Eyes Denies: change in vision Ears, nose, mouth, and throat Denies: throat pain or neck pain Cardiovascular Denies: chest pain, palpitations or edema Respiratory Denies: shortness of breath or cough Gastrointestinal Denies: abdominal pain, nausea, vomiting, diarrhea or con stipation Genitourinary Denies: painful urination, urinary frequency, urinary urgency or urinary incontinence Musculoskeletal Denies: back pain or neck pain Integumentary/Breast Denies: rash Neurological Reports: dizziness; Denies: headache, numbness in extremities or weakness in extremities [facility] Medical History (Updated 01/30/25 @ 19:12 by Virginia Reynoso) RSD (reflex sympathetic dystrophy) ?G90.50 - Complex regional pain syndrome I, unspecified (ICD-10) Osteoporosis ?M81.0 - Age-related osteoporosis without current pathological fracture (ICD- 10) Mitral valve prolapse ?I34.1 - Nonrheumatic mitral (valve) prolapse (ICD-10) Hyponatremia ?E87.1 - Hypo-osmolality and hyponatremia (ICD-10) Fatty liver ?K76.0 - Fatty (change of) liver, not elsewhere classified (ICD-10) Cervical cancer ?C53.9 - Malignant neoplasm of cervix uteri, unspecified (ICD-10) Dyspnea on exertion ?R06.09 - Other forms of dyspnea (ICD-10) Back pain ?M54.9 - Dorsalgia, unspecified (ICD-10) Neck pain ?M54.2 - Cervicalgia (ICD-10) Rheumatoid arthritis ?M06.9 - Rheumatoid arthritis, unspecified (ICD-10) Abscess of right foot ?L02.611 - Cutaneous abscess of right foot (ICD-10) Foreign body in foot ?S90.859A - Superficial foreign body, unspecified foot, initial encounter (ICD-10) Anemia ?D64.9 - Anemia, unspecified (ICD-10) Lung nodule ?R91.1 - Solitary pulmonary nodule (ICD-10) Transient ischemic attack (2018) ?G45.9 - Transient cerebral ischemic attack, unspecified (ICD-10) Seasonal allergies ?J30.2 - Other seasonal allergic rhinitis (ICD-10) High cholesterol ?E78.00 - Pure hypercholesterolemia, unspecified (ICD-10) H/O stroke without residual deficits (~2018) ?Z86.73 - Personal history of transient ischemic attack (TIA), and cerebral infarction without residual deficits (ICD-10) CKD (chronic kidney disease) stage 4, GFR 15-29 ml/min ?N18.4 - Chronic kidney disease, stage 4 (severe) (ICD-10) Pneumonia ?J18.9 - Pneumonia, unspecified organism (ICD-10) Acute UTI (urinary tract infection) ?N39.0 - Urinary tract infection, site not specified (ICD-10) Bilateral hydronephrosis ?N13.30 - Unspecified hydronephrosis (ICD-10) Amputation of left great toe ?S98.112A - Complete traumatic amputation of left great toe, initial encounter (ICD-10) 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 ?N18.9 - Chronic kidney disease, unspecified (ICD-10) ?Z85.528 - Personal history of other malignant neoplasm of kidney (ICD-10) Neuropathy ?G62.9 - Polyneuropathy, unspecified (ICD-10) DM2 (diabetes mellitus, type 2) ?E11.9 - Type 2 diabetes mellitus without complications (ICD-10) Chronic renal insufficiency ?N18.9 - Chronic kidney disease, unspecified (ICD-10) Hyperglycemia due to diabetes mellitus ?E11.65 - Type 2 diabetes mellitus with hyperglycemia (ICD-10) Urinary tract infection ?N39.0 - Urinary tract infection, site not specified (ICD-10) HTN (hypertension) ?I10 - Essential (primary) hypertension (ICD-10) Stroke ?I63.9 - Cerebral infarction, unspecified (ICD-10) Lupus ?M32.9 - Systemic lupus erythematosus, unspecified (ICD-10) Arthritis ?M19.90 - Unspecified osteoarthritis, unspecified site (ICD-10) Fibromyalgia ?M79.7 - Fibromyalgia (ICD-10) Diabetes ?E11.9 - Type 2 diabetes mellitus without complications (ICD-10) Chronic kidney disease (CKD) ?N18.9 - Chronic kidney disease, unspecified (ICD-10) Neoplasm of kidney ?D49.519 - Neoplasm of unspecified behavior of unspecified kidney (ICD-10) Surgical History (Updated 11/21/24 @ 13:10 by Sonia Goodrich NP) H/O foot surgery ?Z98.890 - Other specified postprocedural states (ICD-10) S/P cataract extraction and insertion of intraocular lens ?Z98.49 - Cataract extraction status, unspecified eye (ICD-10) ?Z96.1 - Presence of intraocular lens (ICD-10) History of colonoscopy ?Z98.890 - Other specified postprocedural states (ICD-10) History of cholecystectomy ?Z90.49 - Acquired absence of other specified parts of digestive tract (ICD- 10) Status post ORIF of fracture of ankle ?Z98.890 - Other specified postprocedural states (ICD-10) ?Z87.81 - Personal history of (healed) traumatic fracture (ICD-10) Hx of neck surgery ?Z98.890 - Other specified postprocedural states (ICD-10) History of shoulder surgery ?Z98.890 - Other specified postprocedural states (ICD-10) History of hysterectomy ?Z90.710 - Acquired absence of both cervix and uterus (ICD-10) Family History (Updated 01/10/24 @ 15:58 by Ashley Sanchez) Brother Family history of CHF (congestive heart failure) Family history of myocardial infarction Father Family history of CHF (congestive heart failure) Family history of COPD (chronic obstructive pulmonary disease) Family history of myocardial infarction Sister Family history of cancer Grandmother Family history of cancer Family history of diabetes mellitus Social History (Updated 04/26/24 @ 04:43 by Vonnie Tijerina) Within the past year, how often did you have a drink containing alcohol: never Within the past year, how often did you have six or more drinks on one occasion: never Score interpretation: A score less than 3 is consistent with normal alcohol consumption. Smoking status: Never smoker Non-prescribed substance use: denies use Known occupational exposures/hazards: No Highest level of school completed/degree received: high school graduate Do you want help with school or training: No Are you now , , , , never or living with a partner: In a typical week, how many times do you talk on the telephone with family, friends, or neighbors: 3 or more times per week How often do you get together with friends or relatives: 3 or more times per week How often do you attend jewish or scientology services: never Do you belong to any clubs or organizations such as jewish groups unions, fraternal or athletic groups, or school groups: no Total score: 1 Score interpretation: A score of less than or equal to 1 indicates the most socially isolated. Little interest or pleasure in doing things: not at all Feeling down, depressed, or hopeless: not at all Feel stressed/tense/nervous/anxious/difficulty sleeping: to some extent Life stressors: other Life stressor details: Personal health Gender Identity: female Exam Constitutional Vital Signs, click to edit/add: Last Vital Signs Temp 97.7 F 01/30/25 16:59 Pulse 80 01/30/25 16:59 Resp 16 01/30/25 16:59 BP 153/85 H 01/30/25 16:59 Pulse Ox 97 01/30/25 17:05 O2 Del Method Room Air 01/30/25 17:05 Common normals: no apparent distress and oriented x3 General appearance: cooperative HENMT Common normals: head/scalp atraumatic, external ears normal, moist oral mucous membranes and oropharynx normal Eye Common normals: PERRL, EOMs intact bilaterally, conjunctivae normal and no scleral icterus Neck & C-Spine Common normals: supple Respiratory Common normals: normal respiratory effort Effort & inspection: able to speak in complete sentences and symmetric chest movement Cardio Common normals: regular rate and regular rhythm GI Common normals: soft to palpation and non-tender Neuro Common normals: oriented x3, CN's II-XII intact bilaterally, moves all extremities, no focal motor deficits and no sensory deficits noted Sensorium/orientation: awake and alert Speech: speech normal Gait (neuro): normal gait Course Vital Signs Vital signs: Vital Signs Temperature 97.7 F 01/30/25 16:59 Pulse Rate 80 01/30/25 16:59 Respiratory Rate 16 01/30/25 16:59 Blood Pressure 153/85 H 01/30/25 16:59 Pulse Oximetry 95 01/30/25 16:59 Oxygen Delivery Method Room Air 01/30/25 16:59 Temperature 97.7 F 01/30/25 16:59 Pulse Rate 80 01/30/25 16:59 Respiratory Rate 16 01/30/25 16:59 Blood Pressure 153/85 H 01/30/25 16:59 Pulse Oximetry 97 01/30/25 17:05 Oxygen Delivery Method Room Air 01/30/25 17:05 MDM - Recheck/Abnormal Lab/Rx MDM Narrative Medical decision making narrative: The patient's potassium was 6.0 here. BUN was 56, creatinine 3.08. She was given IV insulin, IV dextrose, and oral Lokelma. Potassium improved to 5.3. Findings were discussed with the patient. She is aware her creatinine remains elevated above her baseline and that her potassium remains elevated. She is aware of her positive outpatient urine culture results. Admission to the hospital was strongly recommended to the patient. She refused. The benefits were explained to the patient. The risks of leaving AMA were explained to the patient, including the risk of worsening condition, cardiac arrhythmia, cardiac arrest, worsening renal function, sepsis, and . The patient declined to stay. A prescription was provided for Levaquin. She is aware that she may return for care at any time. She was encouraged to follow up with her pcp and registered pharmacy technician for a recheck, further evaluation and treatment. Medical Records Attestation: I reviewed the patient's medical records. Lab Data Attestation: I reviewed the patient's lab results. Labs: Lab Results 01/30/25 01/30/25 Range/Units 17:13 18:54 WBC 8.0 (4.0-11.0) 10^3/uL RBC 3.74 L (4.20-5.40) 10^6/uL Hgb 9.4 L (12.0-16.0) g/dL Hct 29.5 L (36.0-48.0) % MCV 78.9 L (81.0-99.0) fL MCH 25.1 L (26.7-34.0) pg MCHC 31.9 (29.9-35.2) g/dL RDW 13.6 (11.0-15.0) % Plt Count 334 (150-450) 10^3/uL MPV 11.1 (9.5-13.5) fL Neut % (Auto) 61.7 (43.0-75.0) % Lymph % (Auto) 26.6 (20.5-60.0) % [place] % (Auto) 7.8 (1.7-12.0) % Eos % (Auto) 1.4 (0.9-7.0) % Baso % (Auto) 0.6 (0.2-2.0) % Neut # (Auto) 4.9 (1.4-6.5) 10^3/uL Lymph # (Auto) 2.1 (1.2-3.8) 10^3/uL [place] # (Auto) 0.6 (0.3-0.8) 10^3/uL Eos # (Auto) 0.1 (0.0-0.7) 10^3/uL Baso # (Auto) 0.1 (0.0-0.1) 10^3/uL Abs Immat Gran (auto) 0.15 H (0.00-0.03) 10^3/uL Imm/Tot Granulo (auto) 1.9 H (0.0-0.5) % Sodium 132 L (136-145) mmol/L Potassium 6.0 H 5.3 H (3.5-5.1) mmol/L Chloride 100 (98-107) mmol/L Carbon Dioxide 22.9 (21.0-32.0) mmol/L Anion Gap 15.1 BUN 56.0 H (7.0-18.0) mg/dL Creatinine 3.08 H (0.55-1.02) mg/dL Est GFR ( Amer) 18 L (>=60 mL/min/1.73m^2) Est GFR (Non-Af Amer) 15 L (>=60 mL/min/1.73m^2) BUN/Creatinine Ratio 18.2 Glucose 465 H (74-106) mg/dL Calcium 8.7 (8.5-10.1) mg/dL Magnesium 1.5 L (1.8-2.4) mg/dL ECG Data Attestation: ?I have reviewed the pertinent ECG results. (EKG was reviewed by the attending physician. It showed sinus rhythm at a rate of 77. No STEMI.) Interpretation: Measurements Intervals [place] Rate: 77 P: 51 NV: 168 QRS: 48 QRSD: 70 T: 60 QT: 388 QTc: 419 Interpretive Statements 1100 Sinus rhythm 9110 normal ECG No previous ECG available for comparison Critical Care Time Critical Care Time Critical Care Time: Yes Total Critical Care Time: 35 Attestation: Due to the high probability of sudden and clinically significant deterioration in the patient's condition he/she required the highest level of my preparedness to intervene urgently. I provided critical care time including documentation time, medication orders and management, reevaluation, vital sign assessment, ordering and reviewing of lab tests, ordering and reviewing of x-ray studies, and admission orders. Aggregate critical care time is 35 minutes including only time during which I was engaged in work directly related to his/her care and did not including time spent treating other patients simultaneously. Discharge Plan Discharge Stand Alone Forms: Portal Instructions Chief Complaint: Recheck/Abnormal Lab/Rx Clinical Impression: Hyperkalemia, Acute kidney injury superimposed on chronic kidney disease, UTI (urinary tract infection), Left against medical advice Patient Disposition: Left Against Medical Advice Time of Disposition Decision: 18:51 Condition: Good Mode of Transportation: Private Vehicle Prescriptions / Home Meds: New levofloxacin 750 mg tablet 750 mg PO DAILY 7 Days Qty: 7 0RF No Action insulin lispro 100 unit/mL insulin pen 1 sliding scale dose SUBCUT QID pregabalin 150 mg capsule 150 mg PO Q8H ferrous sulfate [FeroSul] 325 mg (65 mg iron) tablet 325 mg PO DAILY insulin glargine [Lantus Solostar U-100 Insulin] 100 unit/mL (3 mL) insulin pen 28 unit subcut QPM Qty: 0 0RF amlodipine 5 mg tablet 10 mg PO DAILY hydrocodone-acetaminophen 7.5-325 mg tablet 1 tab PO Q8H PRN (Reason: pain) B-complex with vitamin C [Support-500] Capsule 1 cap PO DAILY fluticasone propionate [24 Hour Allergy Relief] 50 mcg/actuation spray,suspension 1 spray intranasal DAILY PRN (Reason: allergies) Rx Instructions: administer into each nostril metoprolol succinate 50 mg tablet extended release 24 hr 50 mg PO DAILY atorvastatin [Lipitor] 20 mg tablet 20 mg PO DAILY Qty: 30 0RF nitroglycerin 0.4 mg tablet, sublingual 0.4 mg sublingual Q5M PRN (Reason: Pain) Qty: 10 0RF Rx Instructions: do not exceed 3 doses per episode, call MD or go to ED if no response to [facility] [employer] Print Language: Telugu Instructions: Acute Kidney Injury (DC), Urinary Tract Infection in Women (ED), Chronic Kidney Disease (ED), Hyperkalemia (ED) Additional Instructions: Please return to the ER if your condition worsens. You may return for care at anytime. Follow up with your registered pharmacy technician. Referrals: Latosha Olmstead NP [Primary Care Provider, Family Practice] - 1 week Discharge Date/Time: 01/30/25 19:25
[2025-01-30 17:20] LABS: Basophils Absolute Auto 0.1 10^3/uL (0.0-0.1); Basophils Percent Auto 0.6 % (0.2-2.0); Eosinophils Absolute Auto 0.1 10^3/uL (0.0-0.7); Eosinophils Percent Auto 1.4 % (0.9-7.0); Hematocrit 29.5 % (36.0-48.0); Hemoglobin 9.4 g/dL (12.0-16.0); Immature Granulocytes Abs Auto 0.15 10^3/uL (0.00-0.03); Immature Granulocytes Pct Auto 1.9 % (0.0-0.5); Lymphocytes Absolute Auto 2.1 10^3/uL (1.2-3.8); Lymphocytes Percent Auto 26.6 % (20.5-60.0); Mean Corpuscular HGB Conc 31.9 g/dL (29.9-35.2); Mean Corpuscular Hemoglobin 25.1 pg (26.7-34.0); Mean Corpuscular Volume 78.9 fL (81.0-99.0); Mean Platelet Volume 11.1 fL (9.5-13.5); Monocytes Absolute Auto 0.6 10^3/uL (0.3-0.8); Monocytes Percent Auto 7.8 % (1.7-12.0); Neutrophils Absolute Auto 4.9 10^3/uL (1.4-6.5); Neutrophils Percent Auto 61.7 % (43.0-75.0); Platelet Count 334 10^3/uL (150-450); Red Blood Count 3.74 10^6/uL (4.20-5.40); Red Cell Distribution Width 13.6 % (11.0-15.0)
[2025-01-30 17:27] LABS: Magnesium 1.5 mg/dL (1.8-2.4)
[2025-01-30 17:32] LABS: Anion Gap 15.1; BUN Creatinine Ratio 18.2; Calcium 8.7 mg/dL (8.5-10.1); Carbon Dioxide 22.9 mmol/L (21.0-32.0); Chloride 100 mmol/L (98-107); Estimated GFR (African America 18 (>=60 mL/min/1.73m^2); Estimated GFR (Non-African Ame 15 (>=60 mL/min/1.73m^2); Glucose 465 mg/dL (74-106); Sodium 132 mmol/L (136-145)
--- NOTE | 2025-01-30 17:36 | PC.NURSE ---
i walked into this patient's room to find this patient awake and alert sitting upright talking to family member. i did introduced myself to this patient and her family member. i informed this patient waiting on the lab results to come back. this patient voices no concerns,needs and shows no signs of distress
[2025-01-30] MEDS: INSULIN REGULAR, HUMAN (100 UNIT/ML) 10 ML MDV 10 UNIT IV (18:04)
[2025-01-30] MEDS: DEXTROSE 50 %-WATER 25 GM/50 ML SYRINGE IV (18:04)
[2025-01-30] MEDS: SODIUM ZIRCONIUM CYCLOSILICATE 10 GM POWD.PACK PO (18:05)
[2025-01-30] MEDS: LEVOFLOXACIN 750 MG TABLET PO (18:57)
[2025-01-30 19:06] LABS: Potassium 5.3 mmol/L (3.5-5.1)
--- NOTE | 2025-01-30 19:19 | PC.NURSE ---
this patient signed the AMA form, this patient voices i have a dog running around outside and i have no one to take care of my dog this patient voices no concerns or needs and this patient shows no signs of distress. this patient left with her grand daughter
== END 2025-01-30 19:25 | disposition left against medical advice (07) ==
PROVIDERS: Nurse Practitioner Family; Emergency Provider Emergency Medicine; PCP Nurse Practitioner
DX: E87.5 Hyperkalemia (principal); Z53.29 Procedure and treatment not carried out because of patient's decision for other reasons; N39.0 Urinary tract infection, site not specified; I12.9 Hypertensive chronic kidney disease with stage 1 through stage 4 chronic kidney disease, or unspecified chronic kidney disease; N17.9 Acute kidney failure, unspecified; N18.4 Chronic kidney disease, stage 4 (severe); N31.9 Neuromuscular dysfunction of bladder, unspecified; M81.0 Age-related osteoporosis without current pathological fracture; R53.83 Other fatigue; R79.89 Other specified abnormal findings of blood chemistry; Z90.49 Acquired absence of other specified parts of digestive tract; Z90.710 Acquired absence of both cervix and uterus
CPT/HCPCS: 36415; 80048; 80076; 82306; 82607; 82728; 82746; 83540; 83550; 83735; 83970; 84100; 84132; 84439; 84443; 84466; 85025; 93005; 96374; 99285; J1817

== ENCOUNTER 2025-02-11 17:35 | Observation (INO) | payer MEDICARE, SELFPAY ==
[2025-02-11] VITALS (38 sets, daily range): BP systolic 104–194; BP diastolic 58–113; PULSE 58–68; TEMP 36.7–37.1; O2SAT 95–100; BMI 23.4; BMI 25.5
--- NOTE | 2025-02-11 18:06 | ECG_ITS ---
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 Measurements Intervals [place] Rate: 60 P: 45 NV: 170 QRS: 62 QRSD: 76 T: 33 QT: 434 QTc: 435 Interpretive Statements 1100 Sinus rhythm 9110 normal ECG Compared to ECG 01/30/2025 17:02:25 No significant changes Electronically Signed On 02-11-2025 22:01:01 EDT by PADILLA MUKHERJEE M.D.
--- NOTE | 2025-02-11 18:07 | ED.GENADUL1 ---
Documented by User: Hector Garcia MD 02/11/25 18:08 HPI HPI - General Adult General Chief complaint: Weakness Stated complaint: DIZZINESS Time Seen by Provider: 02/11/25 18:03 Source: patient Mode of arrival: walk-in Limitations: no limitations History of Present Illness HPI narrative: 64-year-old female presents to the emergency department for feeling weak and dizzy. She began feeling this way yesterday. She just finished a course of an antibiotic for UTI and is worried that she did not get cured completely. No known fever. No cough or shortness of breath or complaints of abdominal pain. No diarrhea. Related Data Home Medications ?Medication ?Instructions ?Recorded ?Confirmed insulin lispro 100 unit/mL 1 sliding scale dose subcut QID 05/12/23 02/11/25 subcutaneous pen pregabalin 150 mg capsule 150 mg PO Q8H 05/12/23 02/11/25 hydrocodone 7.5 mg-acetaminophen 1 tab PO Q8H PRN pain 07/07/23 02/11/25 325 mg tablet ferrous sulfate 325 mg (65 mg 325 mg PO DAILY 01/10/24 02/11/25 iron) tablet (FeroSul) B-complex with vitamin C 1 cap PO DAILY 04/26/24 02/11/25 (Support-500 capsule) fluticasone propionate 50 1 spray intranasal DAILY PRN 04/26/24 01/30/25 mcg/actuation nasal allergies spray,suspension (24 Hour Allergy Relief) metoprolol succinate 50 mg 50 mg PO DAILY 04/26/24 02/11/25 tablet,extended release 24 hr amlodipine 5 mg tablet 10 mg PO DAILY 11/21/24 02/11/25 Previous Rx's ?Medication ?Instructions ?Recorded insulin glargine 100 unit/mL (3 28 unit (0.28 mL) subcut QPM #0 mL 01/11/24 mL) subcutaneous pen (Lantus Solostar U-100 Insulin) atorvastatin 20 mg tablet (Lipitor) 20 mg PO DAILY #30 tabs 08/11/24 nitroglycerin 0.4 mg sublingual 0.4 mg sublingual Q5M PRN Pain #10 08/11/24 tablet tabs Allergies Allergy/AdvReac Type Severity Reaction Status Date / Time No Known Drug Allergies Allergy Verified 02/11/25 17:41 Opioid HPI Opioid Management Most Recent Opioid Data: Last Pain Scale 3 02/11/25, 17:42 Last Pain Assessment Today, 00:54 Last ORT Total Score 0 02/11/25, 23:35 Last ORT Risk Category Low Risk 02/11/25, 23:35 Review of Systems ROS Narrative A ten point review of systems is negative except as noted above. [facility] Medical History RSD (reflex sympathetic dystrophy) ?G90.50 - Complex regional pain syndrome I, unspecified (ICD-10) Osteoporosis ?M81.0 - Age-related osteoporosis without current pathological fracture (ICD-10) Mitral valve prolapse ?I34.1 - Nonrheumatic mitral (valve) prolapse (ICD-10) Hyponatremia ?E87.1 - Hypo-osmolality and hyponatremia (ICD-10) Fatty liver ?K76.0 - Fatty (change of) liver, not elsewhere classified (ICD-10) Cervical cancer ?C53.9 - Malignant neoplasm of cervix uteri, unspecified (ICD-10) Dyspnea on exertion ?R06.09 - Other forms of dyspnea (ICD-10) Back pain ?M54.9 - Dorsalgia, unspecified (ICD-10) Neck pain ?M54.2 - Cervicalgia (ICD-10) Rheumatoid arthritis ?M06.9 - Rheumatoid arthritis, unspecified (ICD-10) Abscess of right foot ?L02.611 - Cutaneous abscess of right foot (ICD-10) Foreign body in foot ?S90.859A - Superficial foreign body, unspecified foot, initial encounter (ICD-10) Anemia ?D64.9 - Anemia, unspecified (ICD-10) Lung nodule ?R91.1 - Solitary pulmonary nodule (ICD-10) Transient ischemic attack (2018) ?G45.9 - Transient cerebral ischemic attack, unspecified (ICD-10) Seasonal allergies ?J30.2 - Other seasonal allergic rhinitis (ICD-10) High cholesterol ?E78.00 - Pure hypercholesterolemia, unspecified (ICD-10) H/O stroke without residual deficits (~2018) ?Z86.73 - Personal history of transient ischemic attack (TIA), and cerebral infarction without residual deficits (ICD-10) CKD (chronic kidney disease) stage 4, GFR 15-29 ml/min ?N18.4 - Chronic kidney disease, stage 4 (severe) (ICD-10) Pneumonia ?J18.9 - Pneumonia, unspecified organism (ICD-10) Acute UTI (urinary tract infection) ?N39.0 - Urinary tract infection, site not specified (ICD-10) Bilateral hydronephrosis ?N13.30 - Unspecified hydronephrosis (ICD-10) Amputation of left great toe ?S98.112A - Complete traumatic amputation of left great toe, initial encounter (ICD-10) 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 ?N18.9 - Chronic kidney disease, unspecified (ICD-10) ?Z85.528 - Personal history of other malignant neoplasm of kidney (ICD-10) Neuropathy ?G62.9 - Polyneuropathy, unspecified (ICD-10) DM2 (diabetes mellitus, type 2) ?E11.9 - Type 2 diabetes mellitus without complications (ICD-10) Chronic renal insufficiency ?N18.9 - Chronic kidney disease, unspecified (ICD-10) Hyperglycemia due to diabetes mellitus ?E11.65 - Type 2 diabetes mellitus with hyperglycemia (ICD-10) Urinary tract infection ?N39.0 - Urinary tract infection, site not specified (ICD-10) HTN (hypertension) ?I10 - Essential (primary) hypertension (ICD-10) Stroke ?I63.9 - Cerebral infarction, unspecified (ICD-10) Lupus ?M32.9 - Systemic lupus erythematosus, unspecified (ICD-10) Arthritis ?M19.90 - Unspecified osteoarthritis, unspecified site (ICD-10) Fibromyalgia ?M79.7 - Fibromyalgia (ICD-10) Diabetes ?E11.9 - Type 2 diabetes mellitus without complications (ICD-10) Chronic kidney disease (CKD) ?N18.9 - Chronic kidney disease, unspecified (ICD-10) Neoplasm of kidney ?D49.519 - Neoplasm of unspecified behavior of unspecified kidney (ICD-10) Surgical History H/O foot surgery ?Z98.890 - Other specified postprocedural states (ICD-10) S/P cataract extraction and insertion of intraocular lens ?Z98.49 - Cataract extraction status, unspecified eye (ICD-10) ?Z96.1 - Presence of intraocular lens (ICD-10) History of colonoscopy ?Z98.890 - Other specified postprocedural states (ICD-10) History of cholecystectomy ?Z90.49 - Acquired absence of other specified parts of digestive tract (ICD-10) Status post ORIF of fracture of ankle ?Z98.890 - Other specified postprocedural states (ICD-10) ?Z87.81 - Personal history of (healed) traumatic fracture (ICD-10) Hx of neck surgery ?Z98.890 - Other specified postprocedural states (ICD-10) History of shoulder surgery ?Z98.890 - Other specified postprocedural states (ICD-10) History of hysterectomy ?Z90.710 - Acquired absence of both cervix and uterus (ICD-10) Family History Brother Family history of CHF (congestive heart failure) Family history of myocardial infarction Father Family history of CHF (congestive heart failure) Family history of COPD (chronic obstructive pulmonary disease) Family history of myocardial infarction Sister Family history of cancer Grandmother Family history of cancer Family history of diabetes mellitus Social History (Updated 02/12/25 @ 00:01 by Diana Dumont RN) Within the past year, how often did you have a drink containing alcohol: never Within the past year, how often did you have six or more drinks on one occasion: never Score interpretation: A score less than 3 is consistent with normal alcohol consumption. Smoking status: Never smoker Second hand tobacco smoke exposure: No Non-prescribed substance use: denies use Known occupational exposures/hazards: No Highest level of school completed/degree received: GED or equivalent Do you want help with school or training: No Are you now , , , , never or living with a partner: In a typical week, how many times do you talk on the telephone with family, friends, or neighbors: 3 or more times per week How often do you get together with friends or relatives: 3 or more times per week How often do you attend synagogue or holiness services: never Do you belong to any clubs or organizations such as synagogue groups unions, fraternal or athletic groups, or school groups: no Total score: 1 Score interpretation: A score of less than or equal to 1 indicates the most socially isolated. Little interest or pleasure in doing things: not at all Feeling down, depressed, or hopeless: not at all Feel stressed/tense/nervous/anxious/difficulty sleeping: to some extent Life stressors: other Life stressor details: Personal health Gender Identity: female Exam Narrative Exam Narrative: Nurses note and vital signs reviewed and patient is not hypoxic. General: The patient appears in no apparent distress. Patient is resting comfortably on cart. Skin: Warm, dry, no pallor noted. There is no rash noted. Head: Normocephalic, atraumatic Eye: Normal conjunctiva, no drainage Ears, Nose, Mouth, and Throat: oral mucosa is moist. Nares patent. Cardiovascular: Regular Rate and Rhythm Respiratory: Patient is in no distress, no accessory muscle use, lungs are clear to auscultation, no wheezing, rales or rhonchi Back: non-tender GI: Soft and nontender Musculoskeletal: The patient has no evidence of calf tenderness, no pitting edema, symmetrical pulses noted bilaterally Neurological: A&O, normal speech Psychiatric: Cooperative Constitutional Vital Signs, click to edit/add: Last Vital Signs Temp 98.1 F 02/11/25 23:35 Pulse 63 02/11/25 23:35 Resp 18 02/11/25 23:35 BP 189/76 H 02/11/25 23:35 Pulse Ox 98 02/11/25 23:35 O2 Del Method Room Air 02/11/25 23:35 Course Vital Signs Vital signs: Vital Signs Temperature 98.2 F 02/11/25 17:42 Pulse Rate 60 02/11/25 17:42 Respiratory Rate 16 02/11/25 17:42 Blood Pressure 111/60 02/11/25 17:42 Pulse Oximetry 97 02/11/25 17:42 Oxygen Delivery Method Room Air 02/11/25 17:42 Temperature 98.1 F 02/11/25 23:35 Pulse Rate 63 02/11/25 23:35 Respiratory Rate 18 02/11/25 23:35 Blood Pressure 189/76 H 02/11/25 23:35 Pulse Oximetry 98 02/11/25 23:35 Oxygen Delivery Method Room Air 02/11/25 23:35 Medical Decision Making Lab Data Labs: Lab Results 02/11/25 02/11/25 Range/Units 18:08 18:40 WBC 9.8 (4.0-11.0) 10^3/uL RBC 3.80 L (4.20-5.40) 10^6/uL Hgb 9.7 L (12.0-16.0) g/dL Hct 30.0 L (36.0-48.0) % MCV 78.9 L (81.0-99.0) fL MCH 25.5 L (26.7-34.0) pg MCHC 32.3 (29.9-35.2) g/dL RDW 14.4 (11.0-15.0) % Plt Count 255 (150-450) 10^3/uL MPV 11.6 (9.5-13.5) fL Neut % (Auto) 69.6 (43.0-75.0) % Lymph % (Auto) 21.2 (20.5-60.0) % Irwin % (Auto) 6.7 (1.7-12.0) % Eos % (Auto) 1.2 (0.9-7.0) % Baso % (Auto) 0.5 (0.2-2.0) % Neut # (Auto) 6.8 H (1.4-6.5) 10^3/uL Lymph # (Auto) 2.1 (1.2-3.8) 10^3/uL [place]win # (Auto) 0.7 (0.3-0.8) 10^3/uL Eos # (Auto) 0.1 (0.0-0.7) 10^3/uL Baso # (Auto) 0.1 (0.0-0.1) 10^3/uL Abs Immat Gran (auto) 0.08 H (0.00-0.03) 10^3/uL Imm/Tot Granulo (auto) 0.8 H (0.0-0.5) % Sodium 137 (136-145) mmol/L Potassium 5.8 H (3.5-5.1) mmol/L Chloride 106 (98-107) mmol/L Carbon Dioxide 20.3 L (21.0-32.0) mmol/L Anion Gap 16.5 BUN 55.0 H (7.0-18.0) mg/dL Creatinine 3.45 H (0.55-1.02) mg/dL Est GFR ( Amer) 16 L (>=60 mL/min/1.73m^2) Est GFR (Non-Af Amer) 13 L (>=60 mL/min/1.73m^2) BUN/Creatinine Ratio 15.9 Glucose 183 H (74-106) mg/dL Lactate 0.9 (0.4-2.0) mmol/L Calcium 8.9 (8.5-10.1) mg/dL Urine Color Lt. yellow (YELLOW) Urine Clarity Sl cloudy (CLEAR) Urine pH 6.0 (5.0-9.0) Ur Specific [place] 1.010 (1.005-1.025) Urine Protein 100 A (NEG/TRACE) mg/dL Urine Glucose (UA) 250 A (NEGATIVE) mg/dL Urine Ketones Negative (NEGATIVE) mg/dL Urine Occult Blood Small A (NEGATIVE) Urine Nitrite Positive A (NEGATIVE) Urine Bilirubin Negative (NEGATIVE) Urine Urobilinogen 0.2 (0.2-1.0) EU/dL Ur Leukocyte Esterase Moderate A (NEGATIVE) Urine RBC 2-5 A (0-2) #/HPF Urine WBC 20-50 A (NONE SEEN) #/HPF Ur Squamous Epith Cells Few A (NONE/RARE) #/LPF Urine Crystals None seen (None Seen) #/HPF Urine Bacteria Large A (NONE SEEN) #/HPF Urine Casts None seen (NONE SEEN) #/LPF Urine Mucus None seen (NONE SEEN) Ur Culture Indicated? Yes-[facility] [place] Discharge Plan Discharge Chief Complaint: Weakness Clinical Impression: Hyperkalemia UTI (urinary tract infection) Qualifiers: Urinary tract infection type: site unspecified Hematuria presence: without hematuria Qualified Code(s): N39.0 - Urinary tract infection, site not specified CKD (chronic kidney disease) Qualifiers: Chronic kidney disease stage: unspecified stage Qualified Code(s): N18.9 - Chronic kidney disease, unspecified Patient Disposition: Admitted as Observation Time of Disposition Decision: 22:09 Condition: Fair Discharge Date/Time: 02/11/25 23:27 Documented by User: Daniel Sebastian MD 02/12/25 02:43 HPI HPI - General Adult General Chief complaint: Weakness Stated complaint: DIZZINESS Time Seen by Provider: 02/11/25 18:03 Related Data Home Medications ?Medication ?Instructions ?Recorded ?Confirmed insulin lispro 100 unit/mL 1 sliding scale dose subcut QID 05/12/23 02/11/25 subcutaneous pen pregabalin 150 mg capsule 150 mg PO Q8H 05/12/23 02/11/25 hydrocodone 7.5 mg-acetaminophen 1 tab PO Q8H PRN pain 07/07/23 02/11/25 325 mg tablet ferrous sulfate 325 mg (65 mg 325 mg PO DAILY 01/10/24 02/11/25 iron) tablet (FeroSul) B-complex with vitamin C 1 cap PO DAILY 04/26/24 02/11/25 (Support-500 capsule) fluticasone propionate 50 1 spray intranasal DAILY PRN 04/26/24 01/30/25 mcg/actuation nasal allergies spray,suspension (24 Hour Allergy Relief) metoprolol succinate 50 mg 50 mg PO DAILY 04/26/24 02/11/25 tablet,extended release 24 hr amlodipine 5 mg tablet 10 mg PO DAILY 11/21/24 02/11/25 Previous Rx's ?Medication ?Instructions ?Recorded insulin glargine 100 unit/mL (3 28 unit (0.28 mL) subcut QPM #0 mL 01/11/24 mL) subcutaneous pen (Lantus Solostar U-100 Insulin) atorvastatin 20 mg tablet (Lipitor) 20 mg PO DAILY #30 tabs 08/11/24 nitroglycerin 0.4 mg sublingual 0.4 mg sublingual Q5M PRN Pain #10 08/11/24 tablet tabs Allergies Allergy/AdvReac Type Severity Reaction Status Date / Time No Known Drug Allergies Allergy Verified 02/11/25 17:41 Opioid HPI Opioid Management Most Recent Opioid Data: Last Pain Scale 3 02/11/25, 17:42 Last Pain Assessment Today, 00:54 Last ORT Total Score 0 02/11/25, 23:35 Last ORT Risk Category Low Risk 02/11/25, 23:35 PFSH PFSH Medical History RSD (reflex sympathetic dystrophy) ?G90.50 - Complex regional pain syndrome I, unspecified (ICD-10) Osteoporosis ?M81.0 - Age-related osteoporosis without current pathological fracture (ICD-10) Mitral valve prolapse ?I34.1 - Nonrheumatic mitral (valve) prolapse (ICD-10) Hyponatremia ?E87.1 - Hypo-osmolality and hyponatremia (ICD-10) Fatty liver ?K76.0 - Fatty (change of) liver, not elsewhere classified (ICD-10) Cervical cancer ?C53.9 - Malignant neoplasm of cervix uteri, unspecified (ICD-10) Dyspnea on exertion ?R06.09 - Other forms of dyspnea (ICD-10) Back pain ?M54.9 - Dorsalgia, unspecified (ICD-10) Neck pain ?M54.2 - Cervicalgia (ICD-10) Rheumatoid arthritis ?M06.9 - Rheumatoid arthritis, unspecified (ICD-10) Abscess of right foot ?L02.611 - Cutaneous abscess of right foot (ICD-10) Foreign body in foot ?S90.859A - Superficial foreign body, unspecified foot, initial encounter (ICD-10) Anemia ?D64.9 - Anemia, unspecified (ICD-10) Lung nodule ?R91.1 - Solitary pulmonary nodule (ICD-10) Transient ischemic attack (2018) ?G45.9 - Transient cerebral ischemic attack, unspecified (ICD-10) Seasonal allergies ?J30.2 - Other seasonal allergic rhinitis (ICD-10) High cholesterol ?E78.00 - Pure hypercholesterolemia, unspecified (ICD-10) H/O stroke without residual deficits (~2018) ?Z86.73 - Personal history of transient ischemic attack (TIA), and cerebral infarction without residual deficits (ICD-10) CKD (chronic kidney disease) stage 4, GFR 15-29 ml/min ?N18.4 - Chronic kidney disease, stage 4 (severe) (ICD-10) Pneumonia ?J18.9 - Pneumonia, unspecified organism (ICD-10) Acute UTI (urinary tract infection) ?N39.0 - Urinary tract infection, site not specified (ICD-10) Bilateral hydronephrosis ?N13.30 - Unspecified hydronephrosis (ICD-10) Amputation of left great toe ?S98.112A - Complete traumatic amputation of left great toe, initial encounter (ICD-10) 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 ?N18.9 - Chronic kidney disease, unspecified (ICD-10) ?Z85.528 - Personal history of other malignant neoplasm of kidney (ICD-10) Neuropathy ?G62.9 - Polyneuropathy, unspecified (ICD-10) DM2 (diabetes mellitus, type 2) ?E11.9 - Type 2 diabetes mellitus without complications (ICD-10) Chronic renal insufficiency ?N18.9 - Chronic kidney disease, unspecified (ICD-10) Hyperglycemia due to diabetes mellitus ?E11.65 - Type 2 diabetes mellitus with hyperglycemia (ICD-10) Urinary tract infection ?N39.0 - Urinary tract infection, site not specified (ICD-10) HTN (hypertension) ?I10 - Essential (primary) hypertension (ICD-10) Stroke ?I63.9 - Cerebral infarction, unspecified (ICD-10) Lupus ?M32.9 - Systemic lupus erythematosus, unspecified (ICD-10) Arthritis ?M19.90 - Unspecified osteoarthritis, unspecified site (ICD-10) Fibromyalgia ?M79.7 - Fibromyalgia (ICD-10) Diabetes ?E11.9 - Type 2 diabetes mellitus without complications (ICD-10) Chronic kidney disease (CKD) ?N18.9 - Chronic kidney disease, unspecified (ICD-10) Neoplasm of kidney ?D49.519 - Neoplasm of unspecified behavior of unspecified kidney (ICD-10) Surgical History H/O foot surgery ?Z98.890 - Other specified postprocedural states (ICD-10) S/P cataract extraction and insertion of intraocular lens ?Z98.49 - Cataract extraction status, unspecified eye (ICD-10) ?Z96.1 - Presence of intraocular lens (ICD-10) History of colonoscopy ?Z98.890 - Other specified postprocedural states (ICD-10) History of cholecystectomy ?Z90.49 - Acquired absence of other specified parts of digestive tract (ICD-10) Status post ORIF of fracture of ankle ?Z98.890 - Other specified postprocedural states (ICD-10) ?Z87.81 - Personal history of (healed) traumatic fracture (ICD-10) Hx of neck surgery ?Z98.890 - Other specified postprocedural states (ICD-10) History of shoulder surgery ?Z98.890 - Other specified postprocedural states (ICD-10) History of hysterectomy ?Z90.710 - Acquired absence of both cervix and uterus (ICD-10) Family History Brother Family history of CHF (congestive heart failure) Family history of myocardial infarction Father Family history of CHF (congestive heart failure) Family history of COPD (chronic obstructive pulmonary disease) Family history of myocardial infarction Sister Family history of cancer Grandmother Family history of cancer Family history of diabetes mellitus Social History (Updated 02/12/25 @ 00:01 by Diana Dumont RN) Within the past year, how often did you have a drink containing alcohol: never Within the past year, how often did you have six or more drinks on one occasion: never Score interpretation: A score less than 3 is consistent with normal alcohol consumption. Smoking status: Never smoker Second hand tobacco smoke exposure: No Non-prescribed substance use: denies use Known occupational exposures/hazards: No Highest level of school completed/degree received: GED or equivalent Do you want help with school or training: No Are you now , , , , never or living with a partner: In a typical week, how many times do you talk on the telephone with family, friends, or neighbors: 3 or more times per week How often do you get together with friends or relatives: 3 or more times per week How often do you attend synagogue or holiness services: never Do you belong to any clubs or organizations such as synagogue groups unions, fraternal or athletic groups, or school groups: no Total score: 1 Score interpretation: A score of less than or equal to 1 indicates the most socially isolated. Little interest or pleasure in doing things: not at all Feeling down, depressed, or hopeless: not at all Feel stressed/tense/nervous/anxious/difficulty sleeping: to some extent Life stressors: other Life stressor details: Personal health Gender Identity: female Exam Constitutional Vital Signs, click to edit/add: Last Vital Signs Temp 98.1 F 02/11/25 23:35 Pulse 63 02/11/25 23:35 Resp 18 02/11/25 23:35 BP 189/76 H 02/11/25 23:35 Pulse Ox 98 02/11/25 23:35 O2 Del Method Room Air 02/11/25 23:35 Course Vital Signs Vital signs: Vital Signs Temperature 98.2 F 02/11/25 17:42 Pulse Rate 60 02/11/25 17:42 Respiratory Rate 16 02/11/25 17:42 Blood Pressure 111/60 02/11/25 17:42 Pulse Oximetry 97 02/11/25 17:42 Oxygen Delivery Method Room Air 02/11/25 17:42 Temperature 98.1 F 02/11/25 23:35 Pulse Rate 63 02/11/25 23:35 Respiratory Rate 18 02/11/25 23:35 Blood Pressure 189/76 H 02/11/25 23:35 Pulse Oximetry 98 02/11/25 23:35 Oxygen Delivery Method Room Air 02/11/25 23:35 Medical Decision Making MDM Narrative Medical decision making narrative: Patient's care was transferred to ar at change of shift by Dr. Garcia who performed the initial evaluation. Her workup reveals urinary tract infection. She has acute kidney injury superimposed on chronic kidney disease likely on the basis of hypovolemia. Patient is started on IV fluids and given an initial dose of IV Rocephin in the ED. Findings are discussed with hospitalist ASHVIN who is admitting her. Dx: UTI. ANATOLIY. Cond: Fair Dispo: Admitted Lab Data Labs: Lab Results 02/11/25 02/11/25 Range/Units 18:08 18:40 WBC 9.8 (4.0-11.0) 10^3/uL RBC 3.80 L (4.20-5.40) 10^6/uL Hgb 9.7 L (12.0-16.0) g/dL Hct 30.0 L (36.0-48.0) % MCV 78.9 L (81.0-99.0) fL MCH 25.5 L (26.7-34.0) pg MCHC 32.3 (29.9-35.2) g/dL RDW 14.4 (11.0-15.0) % Plt Count 255 (150-450) 10^3/uL MPV 11.6 (9.5-13.5) fL Neut % (Auto) 69.6 (43.0-75.0) % Lymph % (Auto) 21.2 (20.5-60.0) % [place]win % (Auto) 6.7 (1.7-12.0) % Eos % (Auto) 1.2 (0.9-7.0) % Baso % (Auto) 0.5 (0.2-2.0) % Neut # (Auto) 6.8 H (1.4-6.5) 10^3/uL Lymph # (Auto) 2.1 (1.2-3.8) 10^3/uL [place]win # (Auto) 0.7 (0.3-0.8) 10^3/uL Eos # (Auto) 0.1 (0.0-0.7) 10^3/uL Baso # (Auto) 0.1 (0.0-0.1) 10^3/uL Abs Immat Gran (auto) 0.08 H (0.00-0.03) 10^3/uL Imm/Tot Granulo (auto) 0.8 H (0.0-0.5) % Sodium 137 (136-145) mmol/L Potassium 5.8 H (3.5-5.1) mmol/L Chloride 106 (98-107) mmol/L Carbon Dioxide 20.3 L (21.0-32.0) mmol/L Anion Gap 16.5 BUN 55.0 H (7.0-18.0) mg/dL Creatinine 3.45 H (0.55-1.02) mg/dL Est GFR ( Amer) 16 L (>=60 mL/min/1.73m^2) Est GFR (Non-Af Amer) 13 L (>=60 mL/min/1.73m^2) BUN/Creatinine Ratio 15.9 Glucose 183 H (74-106) mg/dL Lactate 0.9 (0.4-2.0) mmol/L Calcium 8.9 (8.5-10.1) mg/dL Urine Color Lt. yellow (YELLOW) Urine Clarity Sl cloudy (CLEAR) Urine pH 6.0 (5.0-9.0) Ur Specific [place] 1.010 (1.005-1.025) Urine Protein 100 A (NEG/TRACE) mg/dL Urine Glucose (UA) 250 A (NEGATIVE) mg/dL Urine Ketones Negative (NEGATIVE) mg/dL Urine Occult Blood Small A (NEGATIVE) Urine Nitrite Positive A (NEGATIVE) Urine Bilirubin Negative (NEGATIVE) Urine Urobilinogen 0.2 (0.2-1.0) EU/dL Ur Leukocyte Esterase Moderate A (NEGATIVE) Urine RBC 2-5 A (0-2) #/HPF Urine WBC 20-50 A (NONE SEEN) #/HPF Ur Squamous Epith Cells Few A (NONE/RARE) #/LPF Urine Crystals None seen (None Seen) #/HPF Urine Bacteria Large A (NONE SEEN) #/HPF Urine Casts None seen (NONE SEEN) #/LPF Urine Mucus None seen (NONE SEEN) Ur Culture Indicated? Yes-[facility] [place] Discharge Plan Discharge Chief Complaint: Weakness Clinical Impression: Hyperkalemia UTI (urinary tract infection) Qualifiers: Urinary tract infection type: site unspecified Hematuria presence: without hematuria Qualified Code(s): N39.0 - Urinary tract infection, site not specified CKD (chronic kidney disease) Qualifiers: Chronic kidney disease stage: unspecified stage Qualified Code(s): N18.9 - Chronic kidney disease, unspecified Patient Disposition: Admitted as Observation Time of Disposition Decision: 22:09 Condition: Fair Discharge Date/Time: 02/11/25 23:27
[2025-02-11 18:25] LABS: Basophils Absolute Auto 0.1 10^3/uL (0.0-0.1); Basophils Percent Auto 0.5 % (0.2-2.0); Eosinophils Absolute Auto 0.1 10^3/uL (0.0-0.7); Eosinophils Percent Auto 1.2 % (0.9-7.0); Hemoglobin 9.7 g/dL (12.0-16.0); Immature Granulocytes Abs Auto 0.08 10^3/uL (0.00-0.03); Immature Granulocytes Pct Auto 0.8 % (0.0-0.5); Lymphocytes Absolute Auto 2.1 10^3/uL (1.2-3.8); Lymphocytes Percent Auto 21.2 % (20.5-60.0); Mean Corpuscular HGB Conc 32.3 g/dL (29.9-35.2); Mean Corpuscular Hemoglobin 25.5 pg (26.7-34.0); Mean Corpuscular Volume 78.9 fL (81.0-99.0); Mean Platelet Volume 11.6 fL (9.5-13.5); Monocytes Absolute Auto 0.7 10^3/uL (0.3-0.8); Monocytes Percent Auto 6.7 % (1.7-12.0); Neutrophils Absolute Auto 6.8 10^3/uL (1.4-6.5); Neutrophils Percent Auto 69.6 % (43.0-75.0); Platelet Count 255 10^3/uL (150-450); Red Cell Distribution Width 14.4 % (11.0-15.0); White Blood Count 9.8 10^3/uL (4.0-11.0)
[2025-02-11 18:36] LABS: Anion Gap 16.5; BUN Creatinine Ratio 15.9; Calcium 8.9 mg/dL (8.5-10.1); Carbon Dioxide 20.3 mmol/L (21.0-32.0); Chloride 106 mmol/L (98-107); Estimated GFR (African America 16 (>=60 mL/min/1.73m^2); Estimated GFR (Non-African Ame 13 (>=60 mL/min/1.73m^2); Glucose 183 mg/dL (74-106); Potassium 5.8 mmol/L (3.5-5.1); Sodium 137 mmol/L (136-145)
[2025-02-11] MEDS: 0.9 % SODIUM CHLORIDE 1,000 ML 1000 ML IV (18:44)
[2025-02-11 19:01] LABS: Bilirubin Urine NEGATIVE (NEGATIVE); Blood Urine SMALL (NEGATIVE); Clarity Urine SL CLOUDY (CLEAR); Color Urine LT. YELLOW (YELLOW); Glucose Urine UA 250 mg/dL (NEGATIVE); Ketones Urine NEGATIVE (NEGATIVE); Leukocyte Esterase Urine MODERATE (NEGATIVE); Nitrite Urine POSITIVE (NEGATIVE); Protein Urine 100 mg/dL (NEG/TRACE); Urobilinogen Urine 0.2 EU/dL (0.2-1.0)
[2025-02-11 19:21] LABS: Mucus Urine NONE SEEN (NONE SEEN); Squamous Epithelial Cell Urine FEW #/LPF (NONE/RARE); WBC Urine 20-50 #/HPF (NONE SEEN)
[2025-02-11 19:22] LABS: Bacteria Urine LARGE #/HPF (NONE SEEN); Cast Seen? NONE SEEN #/LPF (NONE SEEN); Crystals Seen? None Seen #/HPF (None Seen); Urine Culture Indicated YES-FRMC
--- NOTE | 2025-02-11 19:30 | PC.NURSE ---
i walked into this patient's room to find this patient awake and alert lying on her left side on the bed. i introduce myself to this patient and her granddaughter. i informed this patient we are waiting on your urine results to come back
[2025-02-11] MEDS: SODIUM ZIRCONIUM CYCLOSILICATE 10 GM POWD.PACK PO (21:15)
[2025-02-11] MEDS: CEFTRIAXONE 1,000 MG in 0.9 % SODIUM CHLORIDE 50 ML 100 MG IV (21:15)
[2025-02-11 22:29] LABS: Lactate/Lactic Acid 0.9 mmol/L (0.4-2.0)
--- OUTSIDE RECORDS SUMMARY | 2025-02-11 23:38 | XMS_ITS | CCD ---
Author Organization [facility] Care Team Providers Care Facilities Assistant Name Role Phone Pcp, No Primary Care Provider Unavailabl e AGUSTO OLMSTEAD Primary Care Physician [phone] Eli Sprague Unavailable AICHMUNDO, WEB METHODS DEVELOPER AGUSTO Attending Unavailable AICHHOLZ, WEB METHODS DEVELOPER AGUSTO Consulting Unavailable AICHHOLZ, WEB METHODS DEVELOPER AGUSTO Admitting Unavailable AICHHOLZ, WEB METHODS DEVELOPER AGUSTO Primary Care Unavailable RAMON ENRIQUE Attending Unavailable RAMON ENRIQUE Admitting Unavailable REQUEST, DR DANNIE LISTED Primary Care Unavaila georgi DELVALLE, DR THANH García Consulting Unavailable HIGHLRAMON ROSALES Consulting Unavailable AICHHOLZ, WEB METHODS DEVELOPER AGUSTO Primary Care Unavailable RAMON ENRIQUE Admitting Unavailable RAMON ENRIQUE Attending Unavailable AICHHOLZ, WEB METHODS DEVELOPER AGUSTO Primary Care Unavailable LUKASWARIN, AMADO H Consulting Unavailable FAWWAD, AMADO H Admitting Unavailable FAWWAD, AMADO H Attending Unavailable AICHHOLZ, WEB METHODS DEVELOPER AGUSTO Consulting Unavailable AICHHOLZ, WEB METHODS DEVELOPER AGUSTO Admitting Unavailable AICHHOLZ, WEB METHODS DEVELOPER AGUSTO Attending Unavailable AICHHOLZ, WEB METHODS DEVELOPER AGUSTO Primary Care Unavailable RAMON ENRIQUE Attending Unavailable AICHHOLZ, WEB METHODS DEVELOPER AGUSTO Primary Care Unavailable RAMON ENRIQUE Admitting Unavailable BHARAT, DR NUBIA Carlos Consulting Unavailable RAMON ENRIQUE Consulting Unavailable AICHHOLZ, WEB METHODS DEVELOPER AGUSTO Primary Care Unavailable BHARAT, DR NUBIA Carlos Consulting Unavailable CAMMIE SEGURA Admitting Unavailable CAMMIE SEGURA Attending Unavailable COLTONCAMMIE Consulting Unavailable AICHHOLZ, WEB METHODS DEVELOPER AGUSTO Primary Care Unavailable AICHHOLZ, WEB METHODS DEVELOPER AGUSTO Attending Unavailable AICHHOLZ, WEB METHODS DEVELOPER AGUSTO Admitting Unavailable BHARAT, DR NUBIA Carlos Consulting Unavailable AICHHOLZ, WEB METHODS DEVELOPER AGUSTO Consulting Unavailable AICHHOLZ, WEB METHODS DEVELOPER AGUSTO Primary Care Unavailable COLTON, CAMMIE Admitting Unavailable COLTON, CAMMIE Attending Unavailable COLTON, CAMMIE Consulting Unavailable AICHHOLZ, WEB METHODS DEVELOPER AGUSTO Primary Care Unavailable AICHHOLZ, WEB METHODS DEVELOPER AGUSTO Attending Unavailable AICHHOLZ, WEB METHODS DEVELOPER AGUSTO Consulting Unavailable AICHHOLZ, WEB METHODS DEVELOPER AGUSTO Admitting Unavailable AICHHOLZ, WEB METHODS DEVELOPER AGUSTO Primary Care Unavailable WEST, DR NUBIA Carlos Consulting Unavailable COLTON, CAMMIE Admitting Unavailable COLTON, CAMMIE Attending Unavailable COLTON, CAMMIE Consulting Unavailable AICHHOLZ, WEB METHODS DEVELOPER AGUSTO Primary Care Unavailable ZIEBER, DR THANH García Consulting Unavailable HIGHLANDER, PETER D Attending Unavailable HIGHLANDER, PETER D Admitting Unavailable HIGHLANDER, PETER D Consulting Unavailable AICHHOLZ, WEB METHODS DEVELOPER AGUSTO Primary Care Unavailable FOSTER ., DR PAGE Admitting Unavailable FOSTER ., DR PAGE Attending Unavailable FOSTER ., DR PAGE Consulting Unavailable ZIEBER, DR THANH García Consulting Unavailable HIGHLANDER, PETER D Admitting Unavailable AICHHOLZ, WEB METHODS DEVELOPER AGUSTO Primary Care Unavailable ZIEBER, DR THANH García Consulting Unavailable HIGHLANDER, PETER D Attending Unavailable HIGHLANDER, PETER D Consulting Unavailable AICHHOLZ, WEB METHODS DEVELOPER AGUSTO Primary Care Unavailable AICHHOLZ, WEB METHODS DEVELOPER AGUSTO Attending Unavailable AICHHOLZ, WEB METHODS DEVELOPER AGUSTO Consulting Unavailable AICHHOLZ, WEB METHODS DEVELOPER AGUSTO Admitting Unavailable ZIEBER, DR THANH García Consulting Unavailable AICHHOLZ, WEB METHODS DEVELOPER AGUSTO Primary Care Unavailable ZIEBER, DR THANH García Consulting Unavailable HIGHLANDER, PETER D Attending Unavailable HIGHLANDER, PETER D Admitting Unavailable HIGHLANDER, RAMON D Consulting Unavailable AICHHOLZ, WEB METHODS DEVELOPER AGUSTO Primary Care Unavailable ZIEBER, DR THANH García Consulting Unavailable COLTON, CAMMIE Admitting Unavailable COLTON, CAMMIE Attending Unavailable COLTON, CAMMIE Consulting Unavailable RAQUEL DERAS Admitting Unavailable WANDY .RAQUEL Attending Unavailable KASIE CANDELARIO Consulting Unavailable REQUEST, DR PANDEY LISTED Primary Care Unavaila georgi SABA .RAQUEL Consulting Unavailable LYLE MATIAS Consulting Unavailable AICHHOLZ, WEB METHODS DEVELOPER AGUSTO Primary Care Unavailable HAY ., DR CARMONA Admitting Unavailable HAY ., DR CARMONA Attending Unavailable HAY ., DR CARMONA Consulting Unavailable TONY LUO Consulting Unavailable NUBIA BATEMAN Consulting Unavailable AICHHOLZ, WEB METHODS DEVELOPER AGUSTO Primary Care Unavailable HIGHLANDER, PETER D Admitting Unavailable HIGHLANDER, PETER D Attending Unavailable HIGHLANDER, RAMON Tillman Admitting Unavailable AICHHOLZ, WEB METHODS DEVELOPER AGUSTO Primary Care Unavailable HIGHLANDER, RAMON Tillman Attending Unavailable HIGHLANDER, RAMON D Admitting Unavailable AICHHOLZ, WEB METHODS DEVELOPER AGUSTO Primary Care Unavailable ZIEBER, DR THANH García Consulting Unavailable HIGHLANDER, RAMON Tillman Attending Unavailable HIGHLANDER, RAMON Tillman Consulting Unavailable HIGHLANDER, PETER D Admitting Unavailable AICHHOLZ, WEB METHODS DEVELOPER AGUSTO Primary Care Unavailable HIGHLANDER, RAMON Tillman Attending Unavailable HIGHLANDER, RAMON Tillman Attending Unavailable HIGHLANDER, PETER D Admitting Unavailable REQUEST, NONE LISTED Primary Care Unavaila ble HIGHLANDER, RAMON D Admitting Unavailable AICHHOLZ, WEB METHODS DEVELOPER AGUSTO Primary Care Unavailable HIGHLANDER, RAMON Tillman Attending Unavailable HIGHLANDER, RAMON D Admitting Unavailable AICHHOLZ, WEB METHODS DEVELOPER AGUSTO Primary Care Unavailable HIGHLANDER, RAMON D [...] Unavailable SMALLWOOD, REJI FLORES Consulting Unavailable AICHHOLZ, WEB METHODS DEVELOPER AGUSTO Primary Care Unavailable WEST, DR NUBIA Carlos Consulting Unavailable CAMMIE SEGURA Admitting Unavailable CAMMIE SEGURA Attending Unavailable CAMMIE SEGURA Consulting Unavailable HIGHLANDER, PETER D Admitting Unavailable AICHHOLZ, WEB METHODS DEVELOPER AGUSTO Primary Care Unavailable ADELIA, DR THANH García Consulting Unavailable HIGHLANDER, RAMON Tillman Attending Unavailable HIGHLANDER, RAMON Tlilman Consulting Unavailable Fitayden, Brigette Unavailable MapSara brambila Unavailable Lue MD, Lisa M Unavailable Aichholz, Agusto Primary Care Provider [phone] Vern TAVERAS, Lisa Pulido Unavailable Lisa Porras Referring Unavailable Lue, Lisa M. Admitting Unavailable Lue, Lisa M. Attending Unavailable CATALINA, PROMISE Rodriguez Attending Unavailab le CATALINA, PROMISE HEIDY E Admitting Unavailab le CATALINA, PROMISE HEIDY E Attending Unavailab le CATALINA, PROMISE HEIDY E Admitting Unavailab le CATALINA, PROMISE HEIDY E Attending Unavailab le CATALINA, PROMISE HEIDY E Admitting Unavailab le CATALINA, PROMISE JOHNS E Attending Unavailab le CATALINA, PROMISE Rodriguez Attending Unavailab le Lue, Lisa Montiel Attending Unavailable LueLisa Attending Unavailable LueLisa Attending Unavailable CATALINA, PROMISE Rodriguez Attending Unavailab le AICHHOLAGUSTO Salas Attending Unavailable CATALINA, PROMISE Rodriguez Attending Unavailab le Lue, Lisa Montiel Referring Unavailable LueLisa MIrina Attending Unavailable CATALINA, PROMISE Rodriguez Attending Unavailab le RICHHOLAGUSTO Salas Attending Unavailable Aichholz, Agusto Primary Care Provider Aichholz, Agusto Unavailable TAURUS BALLARD Attending Unavailable JENNIFERUASSALYTAURUS Attending Unavailable MADINAALYTAURUS Attending Unavailable JENNIFERUASSALYTAURUS Admitting Unavailable Aichholz, Agusto Primary Care Provider Unavailabl e Aichholz, Agusto Unavailable Unavailable SWETA CH Referring Unavailable AICHHOLZABRAMA J Primary Care Unavailable Shen TAVERAS, Kofi Primary Care Provider [phone] TAURUS BALLARD Referring Unavailable JUANITO BARNARD Attending Unavailable CARMENZA ESPINOSA Attending Unavailable CARMENZA ESPINOSA Attending Unavailable Aichholz CORN CUTTER OPERATOR, Agusto Unavailable Kofi Gotti MD [facility]WEB METHODS DEVELOPER, Agusto J Primary Care Provider RicAgusto flower [facility] Yoni TAVERAS, Alejandro Admit Provider Yoni TAVERAS, Alejandro Attending Provider Zaire TAVERAS, Gilmer Attending Provider [phone] Ladonna TAVERAS, Akin Other Provider Abhishek Castañeda MD Other Provider Ninfa Canela MA Unavailable Unavailable [facility], Agusto Watson Primary Care Provider Agusto Olmstead [facility] Provider Yoni TAVERAS, Alejandro Admit Provider Gilmer Tai MD Attending Provider Ladonna TAVERAS, Akin Other Provider Abhishek Castañeda MD Other Provider Jr Layne DO Emergency Provider Diane Smith MD Admit Provider Diane Smith MD Attending Provider Tyler Valencia MD Other Provider Cory Angeles DPM Other Provider [phone] Demian Dorantes MD Attending Provider Agusto Olmstead Primary Care Unavailable Diane Smith Admitting Unavailable Tyler Valencia Consulting Unavailable Demian Dorantes Attending Unavailab Cory Ling Consulting Unavailable Agusto Olmstead Primary Care Unavailable Alejandro Vallejo Admitting Unavailable Gilmer Tai Attending Unavailable Akin Dougherty Consulting Unavailable Abhishek Castañeda Consulting Unavailable SWETA CH Attending Unavailable AICHHOLZ, AGUSTO J Referring Unavailable AICHHOLZ, AGUSTO J Primary Care Unavailable VERSWETA ENCINAS Attending Unavailable AICHHOLZ, AGUSTO J Referring Unavailable AICHHOLZ, AGUSTO J Primary Care Unavailable VERSWETA ENCINAS Attending Unavailable AICHHOLZ, AGUSTO J Referring Unavailable AICHHOLZ, AGUSTO J Primary Care Unavailable SWETA CH Attending Unavailable AICHHOLZ, AGUSTO J Referring Unavailable AICHHOLZ, AGUSTO J Primary Care Unavailable JYOTHI SHELTON Attending Unavailable AICHHOLZ, AGUSTO J Primary Care Unavailable ZACKERY MIRANDA Attending Unavailable ZACKERY MIRANDA Referring Unavailable AICHHOLZ, AGUSTO J Primary Care Unavailable ZACKERY MIRANDA Admitting Unavailable ZACKERY MIRANDA Attending Unavailable AICHHOLZ, AGUSTO J Referring Unavailable AICHHOLZ, AGUSTO J Primary Care Unavailable SWETA CH Attending Unavailable AICHHOLZ, AGUSTO J Referring Unavailable AICHHOLZ, AGUSTO J Primary Care Unavailable AICHHOLZ, AGUSTO Attending Unavailable AICHHOLZ, AGUSTO Attending Unavailable AICHHOLZ, AGUSTO Attending Unavailable AICHHOLZ, AGUSTO Attending Unavailable CORY ANGELES Attending Unavailable AICHHOLZ, AGUSTO Attending Unavailable AICHHOLZ, AGUSTO Attending Unavailable AICHHOLZ, AGUSTO Attending Unavailable AICHHOLZ, AGUSTO Attending Unavailable Allergies Allergy Classification Reported Allergen(s) Allergy Type Date of Onset Reaction(s) Facility Latex (2 sources) Latex Substance Allergy 0 Rash [facility] (20 sources) Latex; Translations: [Latex] Allergy to substance 0 Eruption of skin (disorder), Rash [facility] Medications Current Medications Medication Drug Class(es) [...] oral tablet (20 sources) Opioid Agonist Start: 01-25-2025 take 1 tablet by mouth three times daily as needed for pain HYDROcodone-acetami nophen (NORCO) 7.5-325 mg per tablet Indications: Reflex sympathetic dystrophy of right upper extremity Take 1 tablet by mouth 3 (three) times a day as needed for pain. 90 tablet 01/25/2025 Active Start: 12-26-2024 End: 01-15-2025 take 1 tablet by mouth three times daily as needed for pain HYDROcodone-acetaminophen (NORCO) 7.5-32 5 mg per tablet Indications: Reflex sympathetic dystrophy of right upper extremity Take 1 tablet by mouth 3 (three) times a day as needed for pain. 90 tablet 12/26/2024 01/15/2025 Discontinued (Reorder) Start: 12-26-2024 take 1 tablet by rain th three times daily as needed for pain HYDROcodone-acetaminophen (NORCO) 7.5-32 5 mg per tablet Indications: Reflex sympathetic dystrophy of right upper extremity Take 1 tablet by mouth 3 (three) times a day as needed for pain. 90 tablet 12/26/2024 Active Start: 12-24-2024 End: 11-15-2024 take 1 tablet by mouth three times daily as needed for pain HYDROcodone-acetaminophen (NORCO) 7.5-32 5 mg per tablet Indications: Reflex sympathetic dystrophy of right upper extremity Take 1 tablet by mouth 3 (three) times a day as needed for pain. 11/24/2024 filldate 90 tablet 12/24/2024 11/15/2024 Discontinued (Reorder) Start: 12-24-2024 take 1 tablet by rain th three times daily as needed for pain HYDROcodone-acetaminophen (NORCO) 7.5-32 5 mg per tablet Indications: Reflex sympathetic dystrophy of right upper extremity Take 1 tablet by mouth 3 (three) times a day as needed for pain. 11/24/2024 filldate 90 tablet 12/24/2024 Active Start: 11-24-2024 take 1 tablet by rain th three times daily as needed for pain HYDROcodone-acetaminophen (NORCO) 7.5-32 5 mg per tablet Indications: Reflex sympathetic dystrophy of right upper extremity Take 1 tablet by mouth 3 (three) times a day as needed for pain. 90 tablet 11/24/2024 Active Start: 11-24-2024 take 1 tablet by rain th three times daily as needed for pain HYDROcodone-acetaminophen (NORCO) 7.5-32 5 mg per tablet Indications: Reflex sympathetic dystrophy of right upper extremity Take 1 tablet by mouth 3 (three) times a day as needed for pain. 90 tablet 11/24/2024 Active Start: 10-25-2024 End: 12-18-2024 take 1 tablet by mouth three times daily as needed for pain HYDROcodone-acetaminophen (NORCO) 7.5-32 5 mg per tablet Indications: Reflex sympathetic dystrophy of right upper extremity Take 1 tablet by mouth 3 (three) times a day as needed for pain. 90 tablet 10/25/2024 12/18/2024 Discontinued (Reorder) Start: 10-25-2024 take 1 tablet by rain th three times daily as needed for pain HYDROcodone-acetaminophen (NORCO) 7.5-32 5 mg per tablet Indications: Reflex sympathetic dystrophy of right upper extremity Take 1 tablet by mouth 3 (three) times a day as needed for pain. 90 tablet 10/25/2024 Active Start: 09-25-2024 End: 10-10-2024 take 1 tablet by mouth three times daily as needed for pain HYDROcodone-acetaminophen (NORCO) 7.5-32 5 mg per tablet Indications: Reflex sympathetic dystrophy of right upper extremity Take 1 tablet by mouth 3 (three) times a day as needed for pain. 90 tablet 09/25/2024 10/10/2024 Discontinued (Reorder) Start: 09-25-2024 take 1 tablet by rain th three times daily as needed for pain HYDROcodone-acetaminophen (NORCO) 7.5-32 5 mg per tablet Indications: Reflex sympathetic dystrophy of right upper extremity Take 1 tablet by mouth 3 (three) times a day as needed for pain. 90 tablet 09/25/2024 Active Start: 09-04-2024 take 1 tablet by rain th every eight hours Hydrocodone-Acetaminophen 7.5-325 mg tab let Active 1 TAB PO Every 8 hours September 04, 2024 12:19pm Start: 08-25-2024 End: 09-13-2024 take 1 tablet by mouth three times daily as needed for pain HYDROcodone-acetaminophen (NORCO) 7.5-32 5 mg per tablet Indications: Reflex sympathetic dystrophy of right upper extremity Take 1 tablet by mouth 3 (three) times a day as needed for pain. 90 tablet 08/25/2024 09/13/2024 Discontinued (Reorder) Start: 08-25-2024 take 1 tablet by rain th three times daily as needed for pain HYDROcodone-acetaminophen (NORCO) 7.5-32 5 mg per tablet Indications: Reflex sympathetic dystrophy of right upper extremity Take 1 tablet by mouth 3 (three) times a day as needed for pain. 90 tablet 08/25/2024 Active Start: 08-11-2023 End: 11-14-2024 take 1 tablet by mouth three times daily as needed HYDROcodone-acetaminophen ([place]) 7.5-32 5 MG tablet Take 1 tablet [...] for wheezing/shortness of breath. AMBULATORY COMPOUNDED MEDICATION (11 sources) Start: 08-22-19 AMBULATORY COMPOUNDED MEDICATION Apply 120 g topically See Admin Instructions. Formula 8E Apply 1-2 grams topically to affected area three to four times daily 120 g 2 08/22/2018 Active amLODIPine 10 mg oral tablet (20 sources) Dihydropyridine Calcium Channel Rainer Start: 11-19-19 End: 02-17-20 take 1 tablet by mouth once daily amLODIPine (Norvasc) 10 MG tablet Indications: Essential (primary) hypertension Take 1 tablet (10 mg) by mouth Daily 90 tablet 11/18/2024 02/16/2025 Active Start: 10-24-2024 End: 01-22-2025 take 1 tablet by mouth once daily Amlodipine 5 mg tablet Discontinued 5 MG PO Daily November 23, 2024 12:00am November 26, 2024 11:57am Start: 09-08-2024 End: 11-23-2024 take 2 tablets by mouth once daily Amlodipine 5 mg tablet Discontinued 10 MG PO Daily 0 September 08, 2024 11:39am November 23, 2024 8:47pm Start: 08-27-2024 End: 09-26-2024 take 1 tablet by mouth once Amlodipine 5 mg tablet Dis continued 5 MG PO Once September 04, 2024 12:28pm September 08, 2024 11:39am Start: 01-17-2024 End: 08-27-2024 take 1 tablet by mouth once daily amLODIPine (Norvasc) 10 MG tablet Indications: Primary hypertension (CMS/HCC) Take 1 tablet (10 mg) by mouth Daily 30 tablet 2 06/11/2024 08/27/2024 Discontinued (Therapy completed) Start: 09-08-2022 take 1 tablet by rain th once daily amLODIPine (NORVASC) 5 mg tablet Take 5 mg by mouth once daily. 09/08/2022 Active amoxicillin 500 mg oral capsule (10 sources) Penicillin-class Antibacterial Start: 01-27-2025 End: 02-03-2025 take 1 capsule by mouth in the morning amoxicillin (Amoxil) 500 MG capsule Indications: UTI symptoms Take 1 capsule (500 mg) by mouth in the morning and 1 capsule (500 mg) before bedtime. Do all this for 7 days. 14 capsule 01/27/2025 02/03/2025 Active Start: 09-08-2024 End: 11-26-2024 take 1 capsule by mouth three times daily Amoxicillin 500 mg capsule Discontinued 500 MG PO Three times daily 9 September 08, 2024 1:00am November 26, 2024 11:57am amoxicillin 875 mg / clavulanate 125 mg oral tablet (4 sources) Penicillin-class Antibacterial Start: 11-26-2024 End: 12-04-2024 amoxicillin-clavulanate (Augmentin) 875-125 MG tablet 1 tablet 11/26/2024 12/04/2024 Discontinued (Therapy completed) Start: 11-26-2024 take 1 tablet by rain th twice daily Amoxicillin-Pot Clavulanate 875-125 mg tablet Active 1 TAB PO Twice daily 10 November 26, 2024 12:00am atorvastatin 20 mg oral tablet (20 sources) HMG-CoA Reductase Inhibitor Start: 08-12-2024 End: 04-27-2025 take 1 tablet by mouth at bedtime atorvastatin (Lipitor) 20 MG tablet Indications: Mixed hyperlipidemia Take 1 tablet (20 mg) by mouth at bedtime 90 tablet 01/27/2025 04/27/2025 Active Budesonide / formoterol (12 sources) Corticosteroid, beta2-Adrenergic Agonist budesonide-formotero L (SYMBICORT) 80-4.5 mcg/actuation inhaler Active take 2 puff(s) by in halation [...] twice daily. cephalexin 500 mg oral capsule (11 sources) Cephalosporin Antibacterial Start: End: take 1 capsule by mouth in the morning cephalexin (Keflex) 500 MG capsule Indications: Right foot pain Take 1 capsule (500 mg) by mouth in the morning and 1 capsule (500 mg) before bedtime. Do all this for 7 days. 14 capsule 11/18/2024 11/25/2024 Active Start: 05-15-2023 take 1 capsule by mouth every twelve hours cetirizine hydrochloride 10 mg oral tablet (20 sources) Histamine-1 Receptor Antagonist Start: 06-05-2024 take 1 tablet by mouth once daily [...] rain th once daily for 3 days. Continuous Glucose Ecg Technician (Dexcom G7 Ecg Technician) device (15 sources) Start: 09-11-2024 End: 12-04-2024 Continuous Glucose Ecg Technician (Dexcom G7 Ecg Technician) device Indications: Type 2 diabetes mellitus with diabetic neuropathy, with long-term current use of insulin ([facility]) , Type 2 diabetes mellitus with hyperglycemia, with long-term current use of insulin ([facility]) , planning coordinator (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 ([facility]) 1 each Daily 1 each 09/11/2024 12/04/2024 Discontinued (Cost of medication) Start: 09-11-2024 End: 09-11-2025 Continuous Glucose Ecg Technician (Dexcom G7 Ecg Technician) device Indications: Type 2 diabetes mellitus with diabetic neuropathy, with long-term current use of insulin (CMS/HCC) , Type 2 diabetes mellitus with hyperglycemia, with long-term current use of insulin (CMS/HCC) , planning coordinator (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 (CMS/HCC) 1 each Daily 1 each 09/11/2024 09/11/2025 Active End: 09-11-2024 Continuous Glucose Ecg Technician (Dexcom G7 Ecg Technician) device 1 each Daily 09/11/2024 Discontinued (Reorder) Continuous Glucose Sensor (Dexcom G7 Sensor) misc (15 sources) Start: 09-11-2024 End: 12-04-2024 Continuous Glucose [facility]ensor (Dexcom G7 Sensor) [facility] Indications: Type 2 diabetes mellitus with diabetic neuropathy, with long-term current use of insulin (CMS/HCC) , Type 2 diabetes mellitus with hyperglycemia, with long-term current use of insulin (CMS/HCC) , planning coordinator (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 (CMS/HCC) 1 each Daily 9 each 3 09/11/2024 12/04/2024 Discontinued (Cost of medication) Start: 09-11-2024 End: 12-10-2024 Continuous Glucose Sensor (D excom G7 Sensor) [facility] Indications: Type 2 diabetes mellitus with diabetic neuropathy, with long-term current use of insulin (CMS/HCC) , Type 2 diabetes mellitus with hyperglycemia, with long-term current use of insulin (CMS/HCC) , [facility] (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 (CMS/HCC) 1 each Daily 9 each 3 09/11/2024 12/10/2024 Active End: 09-11-2024 Continuous Glucose Sensor (D excom G7 Sensor) [facility] 1 each 1 (one) time each day 09/11/2024 Discontinued (Reorder) 1 ml denosumab 60 mg/ml prefilled syringe [...] on above: Take 1 capsule by mo uth two times a day. ergocalciferol 1.25 mg oral capsule (3 sources) Provitamin D2 Compound Start: 09-08-2024 take 1 capsule by mouth every week Ergocalciferol (Vitamin D2) 1,250 mcg (50,000 unit) capsule Active 1250 MCG PO every week 9 60 September 08, 2024 1:00am estradiol 0.1 mg/ml vaginal cream (7 sources) Estrogen Start: 05-03-2023 Estrace 0.1 mg/g Cream See Instructions, 42.5 gm, Refill(s) 3, apply pea size amount to urethra/inner vagina 3x/week x 1 month, then 2x/week for maintainence, [employer] [facility], 153, cm, 05/03/23 9:52:00 EDT, Height/Length [...] propionate 0.05 mg/actuat metered dose nasal spray (20 sources) Corticosteroid Start: 09-04-2024 Fluticasone Propionate 50 mcg/actuation spray,suspension Active 2 SPRAY INTRANASAL Daily as needed for nasal congestion September 04, 2024 12:18pm Start: 06-05-2024 End: 09-04-2024 take 2 spray(s) [...] Refills(s) 0 Start Date: 09/08/22 Status: Ordered furosemide 40 mg oral tablet (20 sources) Loop Diuretic Start: 09-08-2024 take 1 tablet by mouth in the morning furosemide (Lasix) 40 MG tablet Take 40 mg by mouth in the morning and 40 mg before bedtime. 09/08/2024 Active Insulin Aspart FlexPen (11 sources) Start: 09-21-2022 [...] injectable solution (20 sources) Insulin Analog Start: End: insulin glargine (Lantus) 100 UNIT/ML injection Indications: Type 2 diabetes mellitus with diabetic neuropathy, with long-term current use of insulin (HCC) , Type 2 diabetes mellitus with hyperglycemia, with long-term current use of insulin (HCC) Inject 30 Units under the skin at bedtime 30 mL 1 09/11/2024 Active Start: 09-06-2024 Start: 01-21-2021 inject 25 [IU] by collins bcutaneous injection once daily at bedtime insulin glargine (LANTUS) 100 unit/mL injection Inject 25 Units subcutaneously daily at bedtime. 100 mL 01/21/2021 Active Start: 08-14-2020 insulin glargi ne (LANTUS SOLOSTAR U-100 INSULIN) 100 unit/mL (3 mL) insulin pen Inject 30 Units under the skin 2 (two) times a day. 1 Box [address] 08/14/2020 Active End: 09-11-2024 inject 30 [IU] by subcutaneous injection at bedtime insulin glargine (Lantus) 100 UNIT/ML injection Inject 30 Units under the skin at bedtime 09/11/2024 Discontinued (Reorder) Lantus SoloStar 100 UNIT/ML 28 units Subcutaneous qam Active Lantus SoloStar 100 UNIT/ML as directed Subcutaneous 14 UNITS ONCE A DAY Active Comment on above: Inject 25 Units subc utaneously daily at bedtime. 3 ml insulin lispro 100 unt/ml pen injector (20 sources) Insulin Analog Start: 10-29-2024 insulin lispro (HumaLOG) 100 UNIT/ML injection Indications: Type 2 diabetes mellitus with hyperglycemia, with long-term current use of insulin (FORMERLY [facility]) INJECT 4 units at breakfast, 6 units at lunch, and 8 units at dinner plus sliding scale coverage, max of 30 units daily 5 each 3 10/29/2024 Active Start: 09-06-2024 Start: 03-18-2023 End: 10-29-2024 inject 1 [IU] by subcutaneous injection three times daily insulin lispro (HumaLOG) 100 UNIT/ML injection INJECT 4-6-8 UNITS SUBCUTANEOUSLY THREE TIMES DAILY plus sliding scale coverage 2 (TWO) (max DAILY dose OF 30 UNITS) 03/18/2023 10/29/2024 Discontinued (Reorder) HumaLOG 100 UNIT /ML 4-6-8-10 units ac [...] 01/13/2024 Active lisinopril 10 mg oral tablet (11 sources) Angiotensin Converting Enzyme Inhibitor take 1 tablet by mouth in the morning lisinopriL (PRINIVIL,ZESTRIL) 10 mg tablet Take 1 tablet (10 mg total) by mouth in the morning. Active metFORMIN hydrochloride 1000 mg oral tablet (11 sources) Biguanide take 1 tablet by mouth in the morning, then take 1 tablet by mouth at mealtime metFORMIN (GLUCOPHAGE) 1000 mg tablet Take 1 tablet (1,000 mg total) by mouth in the morning and 1 tablet (1,000 mg total) in the evening. Take with meals. Active 24 hr metoprolol succinate 50 mg extended release oral tablet (20 sources) beta-Adrenergic Rainer Start: 06-24-2024 End: 04-27-2025 take 1 tablet by mouth once daily metoprolol succinate XL (Toprol-XL) 50 MG 24 hr tablet Indications: Essential (primary) hypertension Take 1 tablet (50 mg) by mouth Daily 90 tablet 01/27/2025 04/27/2025 Active Start: 11-08-2023 End: 01-20-2024 take 1 tablet by mouth once daily metoprolol succinate XL (Toprol-XL) 50 MG 24 hr tablet Indications: Essential (primary) hypertension (CMS/HCC) Take 1 tablet (50 mg) by mouth Daily 30 tablet 2 01/17/2024 Active Start: 12-20-2022 End: 09-04-2024 take 1 tablet by mouth every twenty-four hours in the morning metoprolol succinate XL (TOPROL XL) 50 mg 24 hr tablet Take 1 tablet (50 mg total) by mouth in the morning. 12/20/2022 Active 24 hr mirabegron 50 mg extended release oral tablet (1 source) beta3-Adrenergic Agonist Start: 09-21-2022 End: 04-19-2023 take 1 tablet by mouth once daily Myrbetriq 50 mg oral tablet, extended release 50 mg = 1 tab(s), Oral, Daily, X 30 day(s), # 30 tab(s), Refills(s) 6, Pharmacy: [id number], 153, cm, 09/21/22 8:48:00 EST, Height/Length Dosing, 52.5, kg, 09/21/22 8:48:00 EST, Weight Dosing Start Date: 09/21/22 Stop Date: 04/19/23 Status: Ordered nitroglycerin 0.4 mg sublingual tablet (20 sources) Nitrate Vasodilator Start: 08-26-2024 nitroglycerin (Nitrostat) 0.[address] 0.4 mg under the tongue every 5 (five) minutes if needed for chest pain 08/26/2024 Active ondansetron 4 mg disintegrating oral tablet (20 sources) Serotonin-3 Receptor Antagonist Start: 06-05-2024 End: 11-23-2024 take 1 tablet by mouth every eight [...] day(s), # 30 tab(s), Refills(s) 6, Pharmacy: [id number], 153, cm, 09/13/22 13:38:00 EST, Height/Length Dosing, 52.5, kg, 09/13/22 13:38:00 EST, Weight Dosing Start Date: 09/13/22 Stop Date: 04/11/23 Status: Ordered potassium chloride 10 meq extended release oral capsule (12 sources) Start: 09-08-2022 potassium chlo ride 10 mEq Cap-ER Refills(s) 0 Start Date: 09/08/22 Status: Ordered pregabalin 150 mg oral capsule (20 sources) Start: 01-17-2025 pregabalin (LY PRIYANK) 150 mg capsule Indications: Complex regional pain syndrome type 1 of right upper extremity Take 1 capsule (150 mg total) by mouth in the morning and 1 capsule (150 mg total) at noon and 1 capsule (150 mg total) in the evening. 90 capsule 1 01/17/2025 Active Start: 12-24-2024 End: 01-15-2025 pregabalin (LYRICA) 150 mg c apsule Indications: Complex regional pain syndrome type 1 of right upper extremity Take 1 capsule (150 mg total) by mouth in the morning and 1 capsule (150 mg total) at noon and 1 capsule (150 mg total) in the evening. 11/24/2024 filldate. 90 capsule 1 12/24/2024 01/15/2025 Discontinued (Reorder) Start: 12-24-2024 pregabalin (LY PRIYANK) 150 mg capsule Indications: Complex regional pain syndrome type 1 of right upper extremity Take 1 capsule (150 mg total) by mouth in the morning and 1 capsule (150 mg total) at noon and 1 capsule (150 mg total) in the evening. 11/24/2024 filldate. 90 capsule 1 12/24/2024 Active Start: 12-24-2024 pregabalin (LY PRIYANK) 150 mg capsule Indications: Complex regional pain syndrome type 1 of right upper extremity Take 1 capsule (150 mg total) by mouth in the morning and 1 capsule (150 mg total) at noon and 1 capsule (150 mg total) in the evening. 11/24/2024 filldate. 90 capsule 1 12/24/2024 Active Start: 12-24-2024 pregabalin (LY PRIYANK) 150 mg capsule Indications: Complex regional pain syndrome type 1 of right upper extremity Take 1 capsule (150 mg total) by mouth in the morning and 1 capsule (150 mg total) at noon and 1 capsule (150 mg total) in the evening. 11/24/2024 filldate. 90 capsule 1 12/24/2024 Active Start: 10-18-2024 End: 11-14-2024 pregabalin (LYRICA) 150 mg c apsule Indications: Complex regional pain syndrome type 1 of right upper extremity Take 1 capsule (150 mg total) by mouth in the morning and 1 capsule (150 mg total) at noon and 1 capsule (150 mg total) in the evening. 90 capsule 1 10/25/2024 11/14/2024 Discontinued (Reorder) Start: 10-18-2024 pregabalin (LY PRIYANK) 150 mg capsule Indications: Complex regional pain syndrome type 1 of right upper extremity Take 1 capsule (150 mg total) by mouth in the morning and 1 capsule (150 mg total) at noon and 1 capsule (150 mg total) in the evening. 90 capsule 1 10/18/2024 Active Start: 08-11-2023 End: 10-10-2024 pregabalin (Lyrica) 150 MG c apsule Take 1 capsule by mouth in the morning and 1 capsule at noon and 1 capsule in the evening. 08/11/2023 Active Start: 09-08-2022 End: 10-04-2023 pregabalin (Lyrica) 150 MG c apsule Take 1 capsule by mouth in the morning and 1 capsule at noon and 1 capsule in the evening. 08/11/2023 Active Start: 01-01-2021 End: 09-04-2024 take 1 capsule by mouth three times daily Pregabalin 150 mg capsule Discontinued 150 MG PO Three times daily June 05, 2024 12:00am September 04, 2024 12:22pm Comment on above: Take 150 mg by mouth three times daily. Take 1 capsule by [facility] two times a day for 30 days. 1000 ml sodium chloride 9 mg/ml injection (1 source) Start: End: 0.9 % sodium chloride (NACL 0.9%) infusion Indications: Other hydronephrosis Administer at rate defined per CT contrast administration specifications. To be provided with radiology test. 150 mL 0 01/12/2024 01/12/2024 Active trospium chloride 20 mg oral tablet (20 sources) Cholinergic Muscarinic Antagonist Start: End: take 1 tablet by mouth in the morning trospium (Sanctura) 20 MG tablet Take 20 mg by mouth in the morning. 03/22/2023 11/18/2024 Discontinued (Therapy completed) vitamin b12 1 mg oral capsule (20 sources) Vitamin B12 Start: take 1 capsule by mouth once daily Cyanocobalamin (Vitamin B-12) 1,000 mcg capsule Active 1000 MCG PO Daily September 08, 2024 1:00am Start: 06-14-2023 End: 06-11-2024 take 1 tablet by mouth in the [...] take 1 tablet by rain once daily cyanocobalamin (Vitamin B-12) 1000 MCG tablet Take 1,000 mcg by mouth Daily 10/10/2023 Active Comment on above: Take 1,000 mcg by [facility] once daily. Completed/Discontinued Medications Medication Drug Class(es) Dates Sig (Normalized) Sig (Original) calcitriol 0.80278 mg oral capsule (19 sources) Vitamin D3 Analog Start: 06-05-2024 End: 11-23-2024 take 1 capsule by mouth three times weekly Calcitriol 0.25 mcg capsule Discontinued 0.25 MCG PO 3 Times a week June 05, 2024 12:00am November 23, 2024 8:45pm Continuous Blood Gluc Ecg Technician (Dexcom G6 reconditioner) device (3 sources) Start: 12-30-2022 End: 04-16-2024 Continuous Blood Gluc Ecg Technician (Dexcom G6 reconditioner) device Inject 1 Device under the skin in the morning. 12/30/2022 04/16/2024 Discontinued (Therapy completed) Start: 12-30-2022 Continuous Blo od Gluc Ecg Technician (Dexcom G6 reconditioner) device Inject 1 Device under the skin [...] diabetes mellitus with diabetic neuropathy, 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 (CMS/HCC) Take 1 capsule (20 mg) by mouth [...] 2 DAYS 01/04/2024 04/16/2024 Discontinued (Therapy completed) sodium bicarbonate 650 mg oral tablet (3 sources) Start: 09-08-2024 End: 11-23-2024 take 1 tablet by mouth three times daily Sodium Bicarbonate 650 mg Tablet Discontinued 650 MG PO Three times daily 90 September 08, 2024 1:00am November 23, 2024 8:47pm Problems Active Problems Problem Classification Problem Date Documented Date Episodic/Chronic Acute and unspecified renal failure (20 sources) Acute injury of kidney; Translations: [Acute kidney failure, unspecified] Onset: 01-18-20 Resolved : 09-04-19 24 01-21-2021 Episodic Administrative/socia l admission (2 sources) Dietary counseling and surveillance Episodic Asthma (20 sources) Unspecified asthma, uncomplicated; Translations: [Mild intermittent asthma] Onset: 11-14-19 Resolved : 06-24-20 24 06-06-2023 Chronic Blindness and vision defects (20 sources) Visual impairment; Translations: [Unspecified visual loss] Onset: 10-11-19 24 10-11-2023 Chronic Cancer of cervix (20 sources) Malignant tumor of cervix; Translations: [Malignant neoplasm of cervix uteri, unspecified] Onset: 10-11-19 24 04-16-2024 Chronic Cardiac dysrhythmias (20 sources) Supraventricular tachycardia; Translations: [Supraventricular tachycardia] Onset: 06-15-20 22 10-11-2023 Chronic Chronic kidney disease (20 sources) Chronic kidney disease stage 3; Translations: [Chronic kidney disease, stage 3 unspecified] Onset: 11-16-19 Resolved : 09-11-19 25 09-08-2022 Chronic Chronic kidney disease (5 sources) Chronic kidney disease; Translations: [Stage 3b chronic kidney disease (HCC)] Onset: 05-01-20 Chronic ulcer of skin (3 sources) Non-pressure chronic ulcer of other part of right foot with fat layer exposed; Translations: [Non-pressure chronic ulcer of other part of left foot with fat layer exposed] Onset: 06-30-20 Chronic Congestive heart failure; nonhypertensive (13 sources) Heart failure; Translations: [Heart failure, unspecified] Onset: 08-09-20 22 09-08-2022 Chronic Coronary atherosclerosis and other heart disease (20 sources) Old myocardial infarction; Translations: [Old myocardial infarction] Onset: 06-15-20 22 10-11-2023 Chronic Deficiency and other anemia (1 source) Anemia in chronic kidney disease; Translations: [Anemia in chronic kidney disease] Onset: 11-24-19 Chronic Deficiency and other anemia (1 source) Anemia, unspecified Episodic Diabetes mellitus with complications (20 sources) Disorder due to type 2 diabetes mellitus; Translations: [Type 2 diabetes mellitus with unspecified complications] Onset: 11-04-19 Resolved : 12-05-19 Chronic Diabetes mellitus without complication (20 sources) Type 2 diabetes mellitus; Translations: [Type 2 diabetes mellitus without complications] Onset: 11-04-1909-08-2022 Chronic Disorders of lipid metabolism (20 sources) Hyperlipidemia; Translations: [Hyperlipidemia, unspecified] Onset: 11-13-19 Resolved : 07-22-20 Chronic Essential hypertension (20 sources) Essential hypertension; Translations: [Essential (primary) hypertension] Onset: 06-15-2009-08-2022 Chronic Fluid and electrolyte disorders (20 sources) Hyperkalemia; Translations: [Hyperkalemia] Onset: 01-18-20 Resolved : 09-04-19 24 09-08-2022 Episodic Fracture of lower limb (11 sources) Fracture of unspecified metatarsal bone(s), left foot, subsequent encounter for fracture with malunion; Translations: [Displaced fracture of second metatarsal bone, left foot, subsequent encounter for fracture with routine healing] Onset: 08-05-20 Episodic Genitourinary symptoms and ill-defined conditions (20 sources) Mixed incontinence; Translations: [Incontinence] Onset: 09-13-19 Resolved : 12-21-19 Chronic Genitourinary symptoms and ill-defined conditions (20 sources) Urinary tract obstruction; Translations: [Obstructive and reflux uropathy, unspecified] Onset: 01-18-20 Resolved : 01-28-20 25 01-21-2021 Episodic Headache; including migraine (20 sources) Migraine; Translations: [Migraine, unspecified, not intractable, without status migrainosus] Onset: 09-06-19 12 10-11-2023 Chronic Heart valve disorders (20 sources) Rheumatic mitral valve disease, unspecified; Translations: [Nonrheumatic mitral (valve) prolapse] Onset: 03-20-20 Resolved : 06-24-20 24 06-06-2023 Chronic Hypertension with complications and secondary hypertension (20 sources) Hypertensive heart disease with heart failure; Translations: [Hypertensive renal disease] Onset: 08-09-20 22 06-03-2024 Chronic Immunity disorders (20 sources) Secondary immune deficiency disorder; Translations: [Immunodeficiency due to conditions classified elsewhere] Onset: 08-27-19 25 08-27-2024 Chronic Infective arthritis and osteomyelitis (except that caused by tuberculosis or sexually transmitted disease) (20 sources) Other acute osteomyelitis, left ankle and foot; Translations: [Acute osteomyelitis of ankle and/or foot] Onset: 06-15-20 22 10-11-2023 Chronic Malaise and fatigue (20 sources) Asthenia; Translations: [Weakness] Onset: 01-18-20 21 01-18-2021 Episodic Nonspecific chest pain (20 sources) Chest pain, unspecified; Translations: [Chest pain] Onset: 12-16-19 Episodic Nutritional deficiencies (20 sources) Deficiency of macronutrients; Translations: [Unspecified severe protein-calorie malnutrition] Onset: 11-13-19 10 01-21-2021 Chronic Open wounds of extremities (20 sources) Complete traumatic amputation of left great toe, initial encounter; Translations: [Traumatic amputation of toe(s) (complete) (partial), without mention of complication] Onset: 06-15-20 Resolved : 06-24-20 24 10-11-2023 Chronic Open wounds of extremities (3 sources) Unspecified open wound of right great toe without damage to nail, initial encounter; Translations: [Laceration of foot with foreign body] Onset: 05-16-20 22 11-27-2024 Episodic Osteoporosis (20 sources) Age-related osteoporosis without current pathological fracture; Translations: [Osteoporosis] Onset: 01-01-20 23 10-11-2023 Chronic Other aftercare (5 sources) planning coordinator (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; Translations: [ADJUNCT PROFESSOR OF [place] HISTORY CURRENT USE OF INSULIN] Onset: 08-09-20 Episodic Other circulatory disease (1 source) Other disorders of arteries, 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; Translations: [OTH D/O ART ARTRIOL CAP DZ CLSS ELS] Onset: 09-13-19 Chronic Other connective tissue disease (5 sources) Pain in left foot; Translations: [PAIN IN LEFT FOOT] Onset: 06-15-20 Episodic Other connective tissue disease (19 sources) Pain in right foot; Translations: [Pain in right foot] Onset: 11-12-19 25 11-11-2024 Episodic Other diseases of bladder and urethra (9 sources) Neuromuscular dysfunction of bladder, unspecified; Translations: [Neurogenic bladder NOS] Onset: 07-25-2009-04-2024 Chronic Other diseases of bladder and urethra (20 sources) Bladder outlet obstruction; Translations: [Bladder-neck obstruction] Onset: 01-30-2001-29-2021 Chronic Other diseases of bladder and urethra (20 sources) Neurogenic bladder; Translations: [Neuromuscular dysfunction of bladder, unspecified] Onset: 06-06-2006-06-2023 Chronic Other diseases of bladder and urethra (1 source) Low compliance bladder; Translations: [Other neuromuscular dysfunction of bladder] 05-01-2024 Chronic Other diseases of bladder and urethra (1 source) Other neuromuscular dysfunction of bladder; Translations: [Bladder compliance low] Onset: 05-01-20 Chronic Other diseases of bladder and urethra (2 sources) Overactive bladder; Translations: [Overactive bladder] 11-23-2024 Chronic Other diseases of bladder and urethra (2 sources) Overactive bladder; Translations: [Hypertonicity of bladder] 11-23-2024 Chronic Other diseases of kidney and ureters (1 source) Disorder of kidney and/or ureter; Translations: [Other specified disorders of kidney and ureter] Onset: 02-23-20 Chronic Other diseases of kidney and ureters (3 sources) Renal mass 02-22-2023 Chronic Other diseases of kidney and ureters (4 sources) Acquired renal cyst without neoplastic change; Translations: [Cyst of kidney, acquired] Onset: 09-13-19 Episodic Other diseases of kidney and ureters (12 sources) Cyst of kidney, acquired; Translations: [Cystic kidney disease, unspecified] Onset: 09-15-19 Episodic Other diseases of kidney and ureters (1 source) Acquired renal cystic disease; Translations: [Cyst of kidney, acquired] 07-05-2023 Episodic Other diseases of kidney and ureters (3 sources) Hydronephrosis; Translations: [Other hydronephrosis] 01-12-2024 Episodic Other diseases of kidney and ureters (11 sources) Hydroureteronephrosis ; Translations: [Unspecified hydronephrosis] Onset: 12-05-19 25 11-23-2024 Episodic Other diseases of kidney and ureters (3 sources) Unspecified hydronephrosis; Translations: [Hydronephrosis] Onset: 11-24-19 25 11-23-2024 Episodic Other endocrine disorders (20 sources) Hyperparathyroidism; Translations: [Hyperparathyroidism, unspecified] Onset: 03-13-2006-03-2024 Chronic Other endocrine disorders (6 sources) Hyperparathyroidism, unspecified; Translations: [Hyperparathyroidism, unspecified] 06-05-2024 Chronic Other liver diseases (20 sources) Steatosis of liver; Translations: [Fatty (change of) liver, not elsewhere classified] Onset: 10-11-19 24 10-11-2023 Chronic Other lower respiratory disease (1 source) Nodule of lung; Translations: [Solitary pulmonary nodule] 03-27-2024 Episodic Other nervous system disorders (20 sources) Chronic pain due to injury; Translations: [Chronic pain due to trauma] Onset: 06-06-20 23 06-06-2023 Chronic Other nervous system disorders (2 sources) Complex regional pain syndrome I of right upper limb; Translations: [Complex regional pain syndrome i of right upper limb] Onset: 03-15-20 Chronic Other nervous system disorders (20 sources) Complex regional pain syndrome type I of right upper limb; Translations: [Complex regional pain syndrome I of right upper limb] Onset: 09-26-19 18 10-11-2023 Chronic Other nervous system disorders (20 sources) Complex regional pain syndrome; Translations: [Complex regional pain syndrome I, unspecified] Onset: 10-11-19 24 10-11-2023 Chronic Other non-traumatic joint disorders (20 sources) Charcot's joint of foot; Translations: [Charcot's joint, left ankle and foot] Onset: 10-11-19 24 10-11-2023 Chronic Other nutritional; endocrine; and metabolic disorders (16 sources) Hypomagnesemia; Translations: [Hypomagnesemia] Onset: 12-05-19 25 09-04-2024 Chronic Other nutritional; endocrine; and metabolic disorders (5 sources) Hypomagnesemia; Translations: [Disorders of magnesium metabolism] 09-04-2024 Chronic Other nutritional; endocrine; and metabolic disorders (1 source) Body mass index (BMI) 25.0-25.9, adult Episodic Other upper respiratory infections (20 sources) Chronic sinusitis; Translations: [Chronic sinusitis, unspecified] Onset: 12-01-19 11 Resolved : 07-22-20 24 10-11-2023 Chronic Peripheral and visceral atherosclerosis (20 sources) Atherosclerosis of aorta; Translations: [Atherosclerosis of aorta] Onset: 03-13-20 24 03-13-2024 Chronic Poisoning by other medications and drugs (6 sources) Poisoning by vitamin D; Translations: [Poisoning by vitamins, accidental (unintentional), initial encounter] 09-04-2024 Episodic Residual codes; unclassified (1 source) Asymptomatic menopausal state; Translations: [ASYMPTOMATIC MENOPAUSAL STATE] Onset: 01-01-20 Episodic Residual codes; unclassified (1 source) Family history of malignant neoplasm of ovary; Translations: [FAM HX MALIGNANT NEOPLASM OVARY] Onset: 01-01-20 Episodic Residual codes; unclassified (1 source) Family history of malignant neoplasm of kidney; Translations: [FAM HX MALIGNANT NEOPLASM KIDNEY] Onset: 01-01-20 Episodic Residual codes; unclassified (1 source) Family history of malignant neoplasm of other organs or systems; Translations: [FAM HX MALIG NEOPLASM OTH ORGN/SYS] Onset: 01-01-20 Episodic Residual codes; unclassified (1 source) Body mass index (BMI) 24.0-24.9, adult Episodic Residual codes; unclassified (12 sources) Memory impairment; Translations: [Other amnesia] Onset: 12-05-19 25 12-04-2024 Episodic Rheumatoid arthritis and related disease (20 sources) Rheumatoid arthritis, unspecified; Translations: [Rheumatoid arthritis] Onset: 06-15-20 22 03-13-2024 Chronic Skin and subcutaneous tissue infections (17 sources) Cellulitis of left lower limb; Translations: [Cellulitis of left toe] Onset: 07-25-20 22 11-24-2024 Episodic Superficial injury; contusion (3 sources) Foreign body of foot; Translations: [Superficial foreign body, right foot, initial encounter] Onset: 11-24-19 25 11-24-2024 Episodic Unclassified (12 sources) Finding of sensation of bladder 09-13-2022 Unclassified (1 source) CHRN KIDNEY DISEASE STG 3 UNSP; Translations: [CHRN KIDNEY DISEASE STG 3 UNSP] Onset: 01-01-20 23 Unclassified (1 source) CONTACT W/AND (SUSP) EXPOS COVID-19; Translations: [CONTACT W/AND (SUSP) EXPOS COVID-19] Onset: 07-25-20 22 Unclassified (1 source) A [facility] screening has identified you as FRAIL or AT RISK FOR FRAILTY. This puts you at a higher risk for infection, illness, falls, and other injuries. Here are four ways to help you reduce your risk of frailty: 1. IDENTIFY EARLY SIGNS OF FRAILTY Discuss contributing factors and concerns with your doctor 2. BE ACTIVE Walking and light strengthening exercises will help reduce weakness 3. EAT WELL Aim for three healthy meals a day that are high in protein 4. THINK POSITIVE Keep your mind active by being sociable and continuing to learn References: Stay Strong: Four Ways to Beat the Frailty Risk [email or web address] 11-26-2024 Unclassified (1 source) Acidosis, unspecified; Translations: [Acidosis, unspecified] Onset: 09-05-19 25 Unclassified (1 source) Arm Injury Onset: 01-09-20 25 Unclassified (1 source) Extremity Pain Onset: 10-09-19 25 Unclassified (1 source) Complex regional pain syndrome type 1 of right upper extremity [G90.511] Onset: 03-15-20 Viral infection (20 sources) Herpetic vulvovaginitis; 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] Onset: 11-16-19 24 11-16-2023 Chronic Past or Other Problems Problem Classification Problem Date Documented Da te Episodic/Chronic Calculus of urinary tract (20 sources) Ureteric [...] [FOLATE DEFICIENCY ANEMIA UNS] Onset: 07-25-2022 Episodic Deficiency and other anemia (10 sources) Iron deficiency anemia, unspecified; Translations: [Iron deficiency anemia, unspecified] Onset: 09-05-2024 09-04-2024 Episodic Deficiency and other anemia (1 source) Other iron deficiency anemias; Translations: [Other iron deficiency anemias] Onset: 09-05-2024 Episodic Diabetes mellitus without complication (20 sources) [...] encounter for closed fracture] Onset: 06-15-2022 Episodic Mood disorders (20 sources) Mood disorders Onset: 10-11-2023 Resolved: 11-18-2024 10-11-2023 Nausea and vomiting (20 sources) Nausea and vomiting; Translations: [Nausea with vomiting, unspecified] Onset: 05-08-2024 05-08-2024 Episodic Neoplasms of unspecified nature or uncertain behavior (20 sources) Neoplasm of kidney; 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] Onset: 06-22-2023 06-22-2023 Episodic Nutritional deficiencies (20 sources) Deficiency of other specified B group vitamins; Translations: [Cobalamin deficiency] Onset: 06-11-2024 Episodic Other aftercare (20 sources) Long-term current use of insulin; Translations: [planning coordinator (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] Onset: 08-27-2024 08-27-2024 Episodic Other aftercare (1 source) Other electrical superintendent (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; Translations: [OTH JAIL CURRENT DRUG THERAPY] Onset: 08-09-2022 Episodic Other aftercare (2 sources) [facility] (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 of opiate analgesic; Translations: [planning coordinator (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 of opiate analgesic] Onset: 03-15-2022 Episodic Other aftercare (11 sources) Patient encounter status; Translations: [[facility] (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 of opiate analgesic] Onset: 03-15-2022 03-15-2022 Episodic Other bone disease and musculoskeletal deformities (20 sources) Amputee; Translations: [Acquired absence of limb, [...] (1 source) Pain in upper limb Onset: 04-24-2024 Episodic Other diseases of kidney and ureters [...] Onset: 07-25-2022 Episodic Other lower respiratory disease (20 sources) Chronic cough; Translations: [Chronic cough] Onset: [...] of blood chemistry] Onset: 07-25-2022 Episodic Other skin disorders (20 sources) Lesion of skin of face; Translations: [Disorder of the skin and subcutaneous tissue, unspecified] Onset: 06-11-2024 06-11-2024 Episodic Other upper respiratory disease (20 sources) Deviated nasal septum; Translations: [Deviated nasal septum] Onset: 11-30-2010 10-11-2023 Episodic Residual codes; unclassified (1 source) Acquired absence of both cervix and uterus; Translations: [ACQUIRED ABSENCE BOTH CERVIX AND UTERUS] Onset: 08-09-2022 Episodic Residual codes; unclassified (1 source) Acquired absence of other specified parts of digestive tract; Translations: [ACQ ABSENCE OTH PART DIGESTV TRACT] Onset: 07-25-2022 Episodic Residual codes; unclassified (20 sources) Postmenopausal state; Translations: [Asymptomatic menopausal state] Onset: 10-11-2023 10-11-2023 Episodic Residual codes; unclassified (20 sources) Noncompliance with medication regimen; Translations: [Non compliance w medication regimen] Onset: 10-24-2024 10-24-2024 Episodic Septicemia (except in labor) (17 sources) Sepsis, unspecified organism; Translations: [Sepsis due to Methicillin resistant Staphylococcus aureus] Onset: 01-17-2021 Resolved: 01-21-2021 Episodic Urinary tract infections (20 sources) Urinary tract infectious disease; Translations: [Urinary tract infection, site not specified] Onset: 01-17-2021 Resolved: 01-27-2025 09-08-2022 Episodic Results Test Name Value Interpretation Reference Range Facility ALL CBC WITH AUTO DIFFon BASOPHILS ABSOLUTE AUTO 0.1 [facility] Basophils/100 WBC (Bld) 0.6 % 0.2 - 2.0 % [facility] Eosinophils/100 WBC (Bld) 0.8 % Low 0.9 - 7.0 % [facility] Erythrocyte distribution width (RBC) [Ratio] 13.6 % 11.0 - 15.0 % [facility] Hematocrit (Bld) [Volume fraction] 30.9 % Low 36.0 - 48.0 % [facility] Hemoglobin (Bld) [Mass/Vol] 9.8 g/dL Low 12.0 - 16.0 g/dL [facility] IMMATURE GRANULOCYTES ABS AUTO 0.15 High [facility] Immature granulocytes/100 WBC (Bld) 1.7 % High 0.0 - 0.5 % [facility] Interpretation and review of laboratory results Abnormal [facility] LYMPHOCYTES ABSOLUTE AUTO 1.6 [facility] Lymphocytes/100 WBC (Bld) 17.5 % Low 20.5 - 60.0 % [facility] MCH (RBC) [Entitic mass] 25.3 pg Low 26.7 - 34.0 pg [facility] MCHC (RBC) [Mass/Vol] 31.7 g/dL 29.9 - 35.2 g/dL [facility] MCV (RBC) [Entitic vol] 79.8 fL Low 81.0 - 99.0 fL [facility] MONOCYTES ABSOLUTE AUTO 0.5 [facility] Monocytes/100 WBC (Bld) 5.9 % 1.7 - 12.0 % [facility] NEUTROPHILS ABSOLUTE AUTO 6.7 High [facility] Neutrophils/100 WBC (Bld) 73.5 % 43.0 - 75.0 % [facility] Platelet mean volume (Bld) [Entitic vol] 11.1 fL 9.5 - 13.5 fL [facility] TB EO # 0.1 [facility] TBH PLT [address] [facility] RBC 3.87 Low [facility] WBC 9.1 [facility] Urinalysis macro (dipstick) panel (U)on 01-27-2025 Bilirubin, UA Negative Negative - 4(70) +++ mg/dL [facility] Blood, UA Positive Negative - 50 Kenneth/mcL [facility] Comment on above: moderate Clarity, UA Cloudy [facility] Color, UA Light Yellow [facility] Glucose, UA Positive Negative - 2000(110) ++++ mg/dL [facility] Comment on above: 250 Interpretation and review of laboratory results Abnormal [facility] Ketones, UA Negative Negative - 160(16) ++++ mg/dL [facility] Leukocytes, UA Trace Negative - 500+++ Yuan/mcL [facility] Nitrite, UA Negative Negative - Positive [facility] pH, UA 5.5 5 - 9 [facility] Protein, UA Positive Negative - 2000(20) ++++ mg/dL [facility] Comment on above: >=300 Spec Grav, UA 1.025 1 - 1.03 [facility] Urobilinogen, UA 0.2 0.2 - 12 mg/dL [facility] Albumin [Mass/volume] in Ser um or Plasma by Bromocresol green (BCG) dye binding methoOrdered By: Tyler Valencia on 11-26-2024 Albumin BCG dye [Mass/Vol] Albumin [Mass/volume] in Serum or Plasma by Bromocresol green (BCG) dye binding metho Low 3.5-5.7 [facility] Basophils Auto (Bld) [#/Vol] Ordered By: Demian Dorantes on 11-26-2024 Basophils (Bld) [#/Vol] Automated basophil count 0.0-0.2 [facility] Basophils/100 WBC Auto (Bld) Ordered By: Demian Dorantes on 11-26-2024 Basophils/100 WBC (Bld) Automated basophil % . [facility] Calcium [Mass/volume] in Ser um or PlasmaOrdered By: Tyler Valencia on 11-26-2024 Calcium [Mass/Vol] Calcium [Mass/volume ] in Serum or Plasma Low 8.6-10.3 [facility] Carbon dioxide, total [Moles /volume] in Serum or PlasmaOrdered By: Tyler Valencia on 11-26-2024 CO2 [Moles/Vol] Carbon dioxide, tota l [Moles/volume] in Serum or Plasma 21.0-31.0 [facility] Chloride [Moles/volume] in S ryan or PlasmaOrdered By: Tyler Valencia on 11-26-2024 Chloride [Moles/Vol] Chloride [Moles/vol ume] in Serum or Plasma High 98-107 [facility] Complete Blood Count Auto Di ffon 11-26-2024 Basophils (Bld) [#/Vol] 0.0 10*3/uL Normal 0.0-0.2 [facility] Comment on above: Result Comment: PERF ORMED BY: [place] [address] PATHOLOGIST LABOR [employer] REPRESENTATIVE NICK MOHR M.D. Performed By: #### C MARAL COLÓNONUAPLUS #### [address] Basophils/100 WBC (Bld) 0.6 % Normal . [facility] Comment on above: Performed By: #### C KATARZYNA ADDONUAPLUS #### [facility] [address] Eosinophils (Bld) [#/Vol] 0.2 10*3/uL Normal 0.0-0.45 [facility] Comment on above: Performed By: #### C DENISE COLÓNUAPLUS #### [facility] [address] Eosinophils/100 WBC (Bld) 3.5 % Normal . [facility] Comment on above: Performed By: #### C DENISE COLÓNUAPLUS #### [address] Erythrocyte distribution width (RBC) [Ratio] 13.7 % Normal 11.9-15.3 [facility] Comment on above: Performed By: #### C UU, ADDONUAPLUS #### [address] Hematocrit (Bld) [Volume fraction] 29.3 % Low 34.0-46.4 [facility] Comment on above: Performed By: #### C UU, ADDONUAPLUS #### [address] Hemoglobin (Bld) [Mass/Vol] 9.7 g/dL Low 11.8-15.4 [facility] Comment on above: Performed By: #### C UU, ADDONUAPLUS #### [address] Lymphocytes (Bld) [#/Vol] 2.3 10*3/uL Normal 1.00-4.8 [facility] Comment on above: Performed By: #### C UU, ADDONUAPLUS #### [address] Lymphocytes/100 WBC (Bld) 40.1 % Normal . [facility] Comment on above: Performed By: #### C UU, ADDONUAPLUS #### [address] MCH (RBC) [Entitic mass] 26.2 pg Normal 24.7-34.3 [facility] Comment on above: Performed By: #### C UU, ADDONUAPLUS #### [address] MCV (RBC) [Entitic vol] 79.0 fL Low 80-100 [facility] Comment on above: Performed By: #### C UU, ADDONUAPLUS #### [address] Mean Corpuscular HGB Conc 33.1 g/dL Normal 32.0-35.0 [facility] Comment on above: Performed By: #### C UU, ADDONUAPLUS #### [address] Monocytes (Bld) [#/Vol] 0.4 10*3/uL Normal 0.0-0.8 [facility] Comment on above: Performed By: #### C UU, ADDONUAPLUS #### [address] Monocytes/100 WBC (Bld) 6.8 % Normal . [facility] Comment on above: Performed By: #### C UU, ADDONUAPLUS #### [address] Neutrophils (Bld) [#/Vol] 2.8 10*3/uL Normal 1.8-7.7 [facility] Comment on above: Performed By: #### C UU, ADDONUAPLUS #### [address] Neutrophils/100 WBC (Bld) 49.0 % Normal . [facility] Comment on above: Performed By: #### C UU, ADDONUAPLUS #### [address] NRBC% 0.2 /100{WBC} Normal 0-0.5 [facility] Comment on above: Performed By: #### C UU, ADDONUAPLUS #### [address] Platelet mean volume (Bld) [Entitic vol] 9.3 fL Normal 6.3-10.7 [facility] Comment on above: Performed By: #### C UU, ADDONUAPLUS #### [address] Platelets (Bld) [#/Vol] 232 10*3/uL Normal 150-450 [facility] Comment on above: Performed By: #### C UU, ADDONUAPLUS #### [address] [place] [address] [place] RBC (Bld) [#/Vol] 3.70 10*6/uL Normal 3.60-5.00 [facility] Comment on above: Performed By: #### C UU, ADDONUAPLUS #### [facility] [address] [place] [id number] [place] WBC (Bld) [#/Vol] 5.8 10*3/uL Normal 3.8-11.6 [facility] Comment on above: Performed By: #### C UU, ADDONUAPLUS #### [facility] [address] Creatinine [Mass/volume] in Serum or PlasmaOrdered By: Tyler Valencia on 11-26-2024 Creatinine [Mass/Vol] Creatinine [Mass/v olume] in Serum or Plasma High 0.60-1.20 [facility] Eosinophils Auto (Bld) [#/Vo l]Ordered By: Demian Dorantes on 11-26-2024 Eosinophils (Bld) [#/Vol] Automated eosinophil count 0.0-0.45 [facility] Eosinophils/100 WBC Auto (Bl d)Ordered By: Demian Dorantes on 11-26-2024 Eosinophils/100 WBC (Bld) Automated eosinophil % . [facility] Erythrocyte distribution wid th Auto (RBC) [Ratio]Ordered By: Demian Dorantes on 11-26-2024 Erythrocyte distribution width (RBC) [Ratio] Erythrocyte distribution width [Ratio] by Automated count 11.9-15.3 [facility] Glucose Glucometer (BldC) [M ass/Vol]Ordered By: Demian Dorantes on 11-26-2024 Glucose [Mass/Vol] Capillary blood gluc ose measurement by glucometer (mass/volume) [facility] Comment on above: Random Glucose Refer ence Range is dependent on time and content of last meal. Glucose of more than 200 mg/dL in a nonstressed, ambulatory subject supports the diagnosis of Diabetes Mellitus. Glucose Poct Glucometerson 0 11-26-2024 Glucose [Mass/Vol] 129 mg/dL Normal [facility] Comment on above: Result Comment: [facility] Glucose Reference Range is dependent on time and content of last meal. Glucose of more than 200 mg/dL in a nonstressed, ambulatory subject supports the diagnosis of Diabetes Mellitus. PERFORMED BY: [place] [address] PATHOLOGIST LABOR [employer] REPRESENTATIVE NICK MOHR M.D. Performed By: #### G LULS #### Point of Care testing , Commemt1 Glu2: Cleaned Meter Normal [facility] Comment on above: Result Comment: PERF ORMED BY: [facility] [address] [place] [address] PATHOLOGIST LABOR [employer] REPRESENTATIVE NICK MOHR M.D. Performed By: #### C UU, ADDONUAPLUS #### [address] Glucose [Mass/Vol] 134 mg/dL Normal [facility] Comment on above: Result Comment: [facility] Glucose Reference Range is dependent on time and content of last meal. Glucose of more than 200 mg/dL in a nonstressed, ambulatory subject supports the diagnosis of Diabetes Mellitus. Performed By: #### C UU, ADDONUAPLUS #### [facility] [address] [place] [address] Glucose [Mass/volume] in Ser um or PlasmaOrdered By: Tyler Valencia on 11-26-2024 Glucose [Mass/Vol] Glucose [Mass/volume ] in Serum or Plasma High 70-100 [facility] Comment on above: ADA recommended refe rence rangeRandom Glucose Reference Range is dependent on time and content of last meal. Glucose of more than 200 mg/dL in a nonstressed, ambulatory subject supports the diagnosis of Diabetes Mellitus. Hematocrit Auto (Bld) [Volum e fraction]Ordered By: Demian Dorantes on 11-26-2024 Hematocrit (Bld) [Volume fraction] Hematocrit [Volume Fraction] of Blood by Automated count Low 34.0-46.4 [facility] Hemoglobin [Mass/volume] in BloodOrdered By: Demian Dorantes on 11-26-2024 Hemoglobin (Bld) [Mass/Vol] Hemoglobin [Mass/volume] in Blood Low 11.8-15.4 [facility] Leukocytes [#/volume] correc madhavi for nucleated erythrocytes in Blood by Automated counOrdered By: Demian Dorantes on 11-26-2024 WBC corrected for nucl RBC Auto (Bld) [#/Vol] Leukocytes [#/volume] corrected for nucleated erythrocytes in Blood by Automated coun 3.8-11.6 [facility] Lymphocytes Auto (Bld) [#/Vo l]Ordered By: Demian Dorantes on 11-26-2024 Lymphocytes (Bld) [#/Vol] Lymphocytes [#/volume] in Blood by Automated count 1.00-4.8 [facility] Lymphocytes/100 WBC Auto (Bl d)Ordered By: Demian Dorantes on 11-26-2024 Lymphocytes/100 WBC (Bld) Lymphocytes/100 leukocytes in Blood by Automated count . [facility] MCH Auto (RBC) [Entitic mass ]Ordered By: Demian Dorantes on 11-26-2024 MCH (RBC) [Entitic mass] MCH [Entitic mass] by Automated count 24.7-34.3 [facility] MCHC Auto (RBC) [Mass/Vol]Or dered By: Demian Dorantes on 11-26-2024 MCHC (RBC) [Mass/Vol] MCHC [Mass/volume] by Automated count 32.0-35.0 [facility] MCV Auto (RBC) [Entitic vol] Ordered By: Demian Dorantes on 11-26-2024 MCV (RBC) [Entitic vol] MCV [Entitic volume] by Automated count Low 80-100 [facility] Monocytes Auto (Bld) [#/Vol] Ordered By: Demian Dorantes on 11-26-2024 Monocytes (Bld) [#/Vol] Automated blood monocyte count 0.0-0.8 [facility] Monocytes/100 WBC Auto (Bld) Ordered By: Demian Dorantes on 11-26-2024 Monocytes/100 WBC (Bld) Automated monocyte % . [facility] Neutrophils Auto (Bld) [#/Vo l]Ordered By: Demian Dorantes on 11-26-2024 Neutrophils (Bld) [#/Vol] Neutrophils [#/volume] in Blood by Automated count 1.8-7.7 [facility] Neutrophils/100 WBC Auto (Bl d)Ordered By: Demian Dorantes on 11-26-2024 Neutrophils/100 WBC (Bld) Automated neutrophil % . [facility] No Panel InformationOrdered By: Demian Dorantes on 11-26-2024 Bedside Glucose Comment Glu2: cleaned meter [facility] No Panel InformationOrdered By: Tyler Valencia on 11-26-2024 Estimated GFR (CKD-EPI) 24.254 mL/Min [facility] Creatinine Clearance (Chem 20.53 [facility] Nucleated erythrocytes [Pres ence] in Blood by Automated countOrdered By: Demian Dorantes on 11-26-2024 Nucleated RBC Auto Ql (Bld) Nucleated erythrocytes [Presence] in Blood by Automated count 0-0.5 [facility] Phosphate [Mass/volume] in S ryan or PlasmaOrdered By: Tyler Valencia on 11-26-2024 Phosphate [Mass/Vol] Phosphate [Mass/vol ume] in Serum or Plasma 2.5-4.5 [facility] Platelet mean volume Auto (B ld) [Entitic vol]Ordered By: Demian Dorantes on 11-26-2024 Platelet mean volume (Bld) [Entitic vol] Platelet mean volume [Entitic volume] in Blood by Automated count 6.3-10.7 [facility] Platelets Auto (Bld) [#/Vol] Ordered By: Demian Dorantes on 11-26-2024 Platelets (Bld) [#/Vol] Platelets [#/volume] in Blood by Automated count 150-450 [facility] Potassium [Moles/volume] in Serum or PlasmaOrdered By: Tyler Valencia on 11-26-2024 Potassium [Moles/Vol] Potassium [Moles/v olume] in Serum or Plasma 3.5-5.1 [facility] RBC Auto (Bld) [#/Vol]Ordere d By: Demian Dorantes on 11-26-2024 RBC (Bld) [#/Vol] Erythrocytes [#/volu me] in Blood by Automated count 3.60-5.00 [facility] Renal Function Panelon 11-26 Albumin [Mass/Vol] 2.9 g/dL Low 3.5-5.7 [facility] Comment on above: Performed By: #### R ENAL #### [facility] [address] Anion gap [Moles/Vol] 9.4 mmol/L Normal 6.0-15.0 [facility] Comment on above: Performed By: #### R ENAL #### [address] Calcium [Mass/Vol] 8.2 mg/dL Low 8.6-10.3 [facility] Comment on above: Performed By: #### R ENAL #### [place] [address] [place] Chloride [Moles/Vol] 108 mmol/L High 98-107 [facility] Comment on above: Performed By: #### R ENAL #### [address] CO2 [Moles/Vol] 28.1 mmol/L Normal 21.0-31.0 [facility] Comment on above: Performed By: #### R ENAL #### [place] [address] [place] Creatinine [Mass/Vol] 2.19 mg/dL High 0.60-1.20 [facility] Comment on above: Performed By: #### R ENAL #### [place] [address] [place] Creatinine Clr Calc Pharmacy 20.53 Normal [facility] Comment on above: Result Comment: PERF ORMED BY: [place] [address] PATHOLOGIST LABOR [employer] REPRESENTATIVE NICK MOHR M.D. Performed By: #### R ENAL #### [address] [place] [address] [place] Estimated GFR 24.254 mL/Min Normal [facility] Comment on above: Performed By: #### R ENAL #### [address] Glucose [Mass/Vol] 135 mg/dL High 70-100 [facility] Comment on above: Result Comment: [place] Glucose Reference Range is dependent on time and content of last meal. Glucose of more than 200 mg/dL in a nonstressed, ambulatory subject supports the diagnosis of Diabetes Mellitus. ADA recommended reference range Performed By: #### R ENAL #### [address] Phosphate [Mass/Vol] 4.0 mg/dL Normal 2.5-4.5 [facility] Comment on above: Performed By: #### R ENAL #### [address] Potassium [Moles/Vol] 4.5 mmol/L Normal 3.5-5.1 [facility] Comment on above: Performed By: #### R ENAL #### [address] Sodium [Moles/Vol] 141 mmol/L Normal 136-145 [facility] Comment on above: Performed By: #### R ENAL #### [address] Urea nitrogen [Mass/Vol] 39 mg/dL High 7-25 [facility] Comment on above: Performed By: #### R ENAL #### [address] Serum or plasma anion gap de terminationOrdered By: Tyler Valencia on 11-26-2024 Anion gap [Moles/Vol] Serum or plasma an ion gap determination 6.0-15.0 [facility] Sodium [Moles/volume] in Ser um or PlasmaOrdered By: Tyler Valencia on 11-26-2024 Sodium [Moles/Vol] Sodium [Moles/volume ] in Serum or Plasma 136-145 [facility] Urea nitrogen [Mass/volume] in Serum or PlasmaOrdered By: Tyler Valencia on 11-26-2024 Urea nitrogen [Mass/Vol] Urea nitrogen [Mass/volume] in Serum or Plasma High 7-25 [facility] WBC Auto (Bld) [#/Vol]Ordere d By: Demian Dorantes on 11-26-2024 WBC (Bld) [#/Vol] Leukocytes [#/volume ] in Blood by Automated count 3.8-11.6 [facility] echo transthoracicon [facility] echo transthoracic [facility] Main [place] [address] [place] [address] Echocardiogram Signed Patient: Aislinn Wheeler MR#: [id number] [birth year] : 1960 Acct:[id number] Age/Sex: 64 / F ADM Date: 11/23/24 Loc: Room: [address] [place] [address] Type: ADM IN Attending Dr: Demian Dorantes MD Ordering Provider: Diane Smith MD Date of Service: 11/23/2401/12/1850 [facility] echo transthoracic: assess for CHF Copies to: MD Diane Norwood MD BSA: 1.6 m2 BP: 208/134 mmHg HR: 78 Reason For Study: assess for CHF History: HTN, CKD, DM, Lupus Interpretation Summary Ejection Fraction = 65-70%. The left ventricular wall motion is normal. Mild concentric left ventricular hypertrophy. A variety of Doppler measurements indicate impaired left ventricular relaxation, which is associated with grade I/IV or mild diastolic dysfunction. Mitral valve annulus tissue Doppler imaging is consistent with elevated left atrial pressure. There is trace tricuspid regurgitation. There is no comparison study available. Procedure/Quality: A two-dimensional transthoracic echocardiogram with color flow and Doppler was performed. The study was technically good in quality. Left Ventricle: The left ventricular size is normal. Mild concentric left ventricular hypertrophy. Ejection Fraction = 65-70%. A variety of Doppler measurements indicate impaired left ventricular relaxation, which is associated with grade I/IV or mild diastolic dysfunction. Mitral valve annulus tissue Doppler imaging is consistent with elevated left atrial pressure. The left ventricular wall motion is normal. Left Atrium: The left atrium appears normal in size. Right Atrium: The right atrium appears normal in size. Right Ventricle: The right ventricle is normal in size and function. Aortic Valve: The aortic valve is normal in structure. No hemodynamically significant valvular aortic stenosis. No aortic regurgitation is present. Mitral Valve: The mitral valve is normal in structure. No significant mitral valve stenosis. There is no mitral regurgitation noted. Tricuspid Valve: The tricuspid valve is normal in structure. There is trace tricuspid regurgitation. Pulmonic Valve: The pulmonic valve is not well visualized. No significant pulmonic regurgitation. Arteries: The aortic root is normal size. Pericardium/Pleura: No pericardial effusion seen. IVC/Hepatic Veins: The inferior vena cava is normal in size, with a normal collapsibility index. Measurements with Normals IVSd: 1.4 cm (0.7-1.1 cm)LVIDd: 4.0 cm (3.7-5.4 cm) LVPWd: 1.3 cm (0.7-1.1 cm)LVIDs: 2.4 cm (2.3-3.6 cm) LA dimension: 3.9 cm (2.3-4.0 cm)Ao root diam: 2.6 cm(2.0-3.6 cm) asc Aorta Diam: 2.3 cm(2.1-3.4cm) Doppler with Normals RVSP(TR): 40.8 mmHg (18-35mmHg) LV V1 max: 121.0 cm/sec (0.7-1.7m/s)MV E max neil: 125.0 cm/sec(0.8-1.3m/s) MV A max neil: 152.0 cm/sec(0.0-0.0m/s) MV E/A: 0.82 (<1.5) MMode/2D Measurements Calculations RVDd: 3.4 cm FS: 40.0 % Ao root area: LVOT diam: 1.8 cm TAPSE: 2.3 cm EDV(Teich): 5.3 cm2 LVOT area: 2.5 cm2 RV S Neil: 70.0 ml 6.8 cm/sec ESV(Teich): 20.2 ml EF(Teich): 71.2 % __ LVLd ap4: 7.3 cm SV(MOD-sp4): LAV(MOD-sp4): LA A2 area: 15.5 cm2 EDV(MOD-sp4): 42.1 ml 44.6 ml 53.8 ml LAV(MOD-sp2): LA A4 area: 17.0 cm2 LVLs ap4: 5.4 cm 39.9 ml LA length (vol): ESV(MOD-sp4): 5.2 cm 11.7 ml LA vol: 42.9 ml EF(MOD-sp4): 78.3 % LA vol index: 27.4 ml/m2 Doppler Measurements Calculations MV dec time: MV V2 max: E/E' lat: 17.1 MV dec slope: 0.21 sec 157.0 cm/sec E/E' med: 19.5 MV max P.9 mmHg 582.0 cm/sec2 MV V2 mean: 96.6 cm/sec MV mean P.0 mmHg MV V2 VTI: 39.6 cm MVA(VTI): 2.2 cm2 __ Ao V2 max: LV V1 max PG: TV max PG: TR max neil: 207.0 cm/sec 5.9 mmHg 36.0 mmHg 299.0 cm/sec Ao max PG: LV V1 mean PG: TR max P.8 mmHg 17.1 mmHg 3.0 mmHg RAP systole: 5.0 mmHg Ao mean PG: LV V1 mean: 10.0 mmHg 72.7 cm/sec Ao V2 mean: LV V1 VTI: 35.0 cm 149.0 cm/sec Ao V2 VTI: 47.8 cm WES(I,D): 1.9 cm2 WES(V,D): 1.5 cm2 Measurements from QLAB CI (): ED Mass (HM): LAEF (HM): 78.0 % BSA (HM): 1.6 m2 122.0 grams 2.7 l/min/m2 __ HEMALATHA (): LAVmax (): LAVmin (): 13.0 mlPat Height (HM): 37.0 ml/m2 58.0 ml 152.0 cm __ Pat Weight (): 60.2 kg QLAB Heart Model EDV ()_phl: 95.0 ml EF ()_phl: 58.0 % ED Current ()_phl: 60.0 % ESV ()_phl: 40.0 ml HR (HM)_phl: 77.0 BPMES Current (HM)_phl: 30.0 % LV Length ED (HM)_phl: 75.0 mmSV (HM)_phl: 55.0 ml ED Default (HM)_phl: 60.0 % LV Length ES (HM)_phl: 64.0 mm ES Default (HM)_phl: 30.0 % ___ Transcribed By: DELTA Performed At: 11/25/24 1311 Signed By: Irena Haro MD 11/25/24 1419 Normal [facility] Glucose Poct Glucometerson 0 11-25-2024 Commemt1 Glu2: Cleaned Meter Normal [facility] Comment on above: Result Comment: PERF ORMED BY: [facility] [address] [place] [address] PATHOLOGIST LABOR UNION BUSINESS REPRESENTATIVE NICK MOHR M.D. Performed By: #### G LULS #### Point of Care testing , Glucose [Mass/Vol] 145 mg/dL Normal [facility] Comment on above: Result Comment: [facility] Glucose Reference Range is dependent on time and content of last meal. Glucose of more than 200 mg/dL in a nonstressed, ambulatory subject supports the diagnosis of Diabetes Mellitus. Performed By: #### G LULS #### Point of Care testing , Glucose [Mass/Vol] 132 mg/dL Normal [facility] Comment on above: Result Comment: [place] Glucose Reference Range is dependent on time and content of last meal. Glucose of more than 200 mg/dL in a nonstressed, ambulatory subject supports the diagnosis of Diabetes Mellitus. PERFORMED BY: [facility] [address] [place] [address] PATHOLOGIST LABOR UNION BUSINESS REPRESENTATIVE NICK MOHR M.D. Performed By: #### G LULS #### Point of Care testing , Glucose [Mass/Vol] 99 mg/dL Normal [facility] Comment on above: Result Comment: [facility] Glucose Reference Range is dependent on time and content of last meal. Glucose of more than 200 mg/dL in a nonstressed, ambulatory subject supports the diagnosis of Diabetes Mellitus. PERFORMED BY: [place] [address] PATHOLOGIST LABOR UNION BUSINESS REPRESENTATIVE NICK MOHR M.D. Performed By: #### C UU, ADDONUAPLUS #### [address] NM layton perf SPECT rest stron 11-25-2024 NM layton perf SPECT rest str [facility] Main [place] [address] [place] [address] Nuclear Medicine Report Signed Patient: Aislinn Wheeler MR#: [id number] 01 : 1960 Acct:[id number] Age/Sex: 64 / F ADM Date: 11/23/24 Loc: Room: [address] [place] [address] Type: ADM IN Attending Dr: Demian Dorantes MD Copies to: MD Galo Olsen MD Linda Njoroge, MD Ordering Provider: Galo Mcmullen MD Date of Service: 11/25/24 NM/NM layton perf SPECT rest str: Chest pain NUCLEAR MYOCARDIAL PERFUSION DATE OF PROCEDURE: 11/25/2024 PROCEDURE: The patient received a stress dose of Lexiscan and was then injected with 19.6 millicuries of Technetium 99M Sestamibi. For rest images the patient was injected with 6.6 millicuries of Technetium 99M Sestamibi. FINDINGS: The raw cine images were reviewed. The post stress and rest perfusion images were reviewed as well as the computer quantification.? There was uniform uptake of the radiotracer with no perfusion defects identified.? On the gated portion of the study, there was uniform thickening with an overall ejection fraction calculated at 68%.? TID score was within normal limits. CONCLUSION: 1. Gated spect Sestamibi study is within normal limits. 2. Left ventricular function was preserved. Impression dictated by: Irena Haro M.D.11/25/2024 3:24 PM Dictation Location: [place] [address] Transcribed By: AMEE 11/25/24 1524 Dictated By: Irena Haro MD 11/25/24 1523 Signed By: 11/25/24 1524 Normal [facility] No Panel InformationOrdered By: Irena Haro on 11-25-2024 [facility] [place] [address] Cardiac Stress Test Signed Patient: Aislinn Wheeler MR#: [id number] : 1960 Date of Service:0 11/25/24 Age/Sex: 64 / F ADM Date: 5 Loc: Room: [address] [place] [address] Type: ADM IN Attending Dr: Demian Dorantes MD Copies to: MD Irena Olsen MD Lisa J Aichholz, CORN CUTTER OPERATOR-C~ INDICATION FOR STUDY/DIAGNOSIS: Chest pain PROCEDURE: After informed consent was obtained, the patient received a stress dose of Lexiscan while undergoing continuous 12 lead ECG monitoring. The baseline heart rate was 70 bpm and anitra to a maximum of 80 bpm. The baseline blood pressure was 205/89 and was 142/70 at the end of the test. The patient had no chest pain following the administration of Lexiscan. The baseline ECG revealed normal sinus rhythm. Following administration of Lexiscan, there were no ST-T changes suggestive of ischemia. CONCLUSION: 1. Non-diagnostic Lexiscan ECG study. 2. Nuclear myocardial perfusion report to follow under a separate cover. Transcribed By: gustabo 11/25/24 1444 Dictated By: Irena Haro MD 11/25/24 1444 Signed By: 11/25/24 1445 [facility] Work Phone: Renal Function Panelon 11-25 Albumin [Mass/Vol] 3.2 g/dL Low 3.5-5.7 [facility] Comment on above: Performed By: #### C AMY COLÓN #### [address] Anion gap [Moles/Vol] 10.2 mmol/L Normal 6.0-15.0 e [facility] Comment on above: Performed By: #### C UU, ADDONUAPLUS #### [address] Calcium [Mass/Vol] 8.2 mg/dL Low 8.6-10.3 [facility] Comment on above: Performed By: #### C UU, ADDONUAPLUS #### [address] Chloride [Moles/Vol] 106 mmol/L Normal 98-107 [facility] Comment on above: Performed By: #### C UU, ADDONUAPLUS #### [address] CO2 [Moles/Vol] 28.6 mmol/L Normal 21.0-31.0 [facility] Comment on above: Performed By: #### C UU, ADDONUAPLUS #### [address] Creatinine [Mass/Vol] 2.22 mg/dL High 0.60-1.20 [facility] Comment on above: Performed By: #### C UU, ADDONUAPLUS #### [address] Creatinine Clr Calc Pharmacy 20.22 Normal [facility] Comment on above: Result Comment: PERF ORMED BY: [place] [address] PATHOLOGIST LABOR [employer]ION BUSINESS REPRESENTATIVE NICK MOHR M.D. Performed By: #### C UU, ADDONUAPLUS #### [address] Estimated GFR 23.862 mL/Min Normal [facility] Comment on above: Performed By: #### C UU, ADDONUAPLUS #### [address] Glucose [Mass/Vol] 72 mg/dL Significant change down 70-100 [facility] Comment on above: Result Comment: [facility] Glucose Reference Range is dependent on time and content of last meal. Glucose of more than 200 mg/dL in a nonstressed, ambulatory subject supports the diagnosis of Diabetes Mellitus. ADA recommended reference range Performed By: #### C UU, ADDONUAPLUS #### [facility] [address] Phosphate [Mass/Vol] 3.1 mg/dL Normal 2.5-4.5 [facility] Comment on above: Performed By: #### C UU, ADDONUAPLUS #### [address] Potassium [Moles/Vol] 4.8 mmol/L Normal 3.5-5.1 [facility] Comment on above: Performed By: #### C UU, ADDONUAPLUS #### [address] Sodium [Moles/Vol] 140 mmol/L Normal 136-145 [facility] Comment on above: Performed By: #### C UU, ADDONUAPLUS #### [address] Urea nitrogen [Mass/Vol] 47 mg/dL High 7-25 [facility] Comment on above: Performed By: #### C UU, ADDONUAPLUS #### [address] A1C with Estimated Average G oliver 11-24-2024 Glucose [Mass/Vol] 223 mg/dL Normal [facility] Comment on above: Order Comment: Comme nt Add on Result Comment: PERF ORMED BY: [place] [address] PATHOLOGIST LABOR UNION BUSINESS REPRESENTATIVE NICK MOHR M.D. Performed By: #### G LULS #### Point of Care testing , HbA1c (Bld) [Mass fraction] 9.4 % High 4.3-5.6 [facility] Comment on above: Order Comment: Comme nt Add on Result Comment: Incr eased risk for diabetes: 5.7 - 6.4 diabetes: >6.4 glycemic control for adults with diabetes: <7.0 Performed By: #### G LUCARLOS MANUEL #### Point of Care testing , Alanine aminotransferase [En zymatic activity/volume] in Serum or PlasmaOrdered By: Diane Smith on 11-24-2024 ALT [Catalytic activity/Vol] Alanine aminotransferase [Enzymatic activity/volume] in Serum or Plasma 7-52 [facility] Alkaline phosphatase [Enzyma tic activity/volume] in Serum or PlasmaOrdered By: Diane Smith on 11-24-2024 ALP [Catalytic activity/Vol] Alkaline phosphatase [Enzymatic activity/volume] in Serum or Plasma 34-104 [facility] Aspartate aminotransferase [ Enzymatic activity/volume] in Serum or PlasmaOrdered By: Diane Smith on 11-24-2024 AST [Catalytic activity/Vol] Aspartate aminotransferase [Enzymatic activity/volume] in Serum or Plasma Low 13-39 [facility] Bilirubin.total [Mass/volume ] in Serum or PlasmaOrdered By: Diane Smith on 11-24-2024 Bilirubin [Mass/Vol] Bilirubin.total [Mass/volume] in Serum or Plasma Low 0.3-1.0 [facility] Blood estimated average gluc ose determination by estimation from glycated hemoglobinOrdered By: Irena Schuster on 11-24-2024 Average glucose Estimated from glycated hemoglobin (Bld) [Mass/Vol] Glucose mean value [Mass/volume] in Blood Estimated from glycated hemoglobin [facility] Complete Blood Count Auto Di ffon 11-24-2024 Basophils (Bld) [#/Vol] 0.1 10*3/uL Normal 0.0-0.2 [facility] Comment on above: Result Comment: PERF ORMED BY: [place] [address] PATHOLOGIST LABOR [employer] BUSINESS REPRESENTATIVE NICK MOHR M.D. Performed By: #### C UU, ADDONUAPLUS #### [address] Basophils/100 WBC (Bld) 1.0 % Normal . [facility] Comment on above: Performed By: #### C UU, ADDONUAPLUS #### [address] Eosinophils (Bld) [#/Vol] 0.2 10*3/uL Normal 0.0-0.45 [facility] Comment on above: Performed By: #### C UU, ADDONUAPLUS #### [address] Eosinophils/100 WBC (Bld) 3.2 % Normal . [facility] Comment on above: Performed By: #### C UU, ADDONUAPLUS #### [address] Erythrocyte distribution width (RBC) [Ratio] 13.7 % Normal 11.9-15.3 [facility] Comment on above: Performed By: #### C UU, ADDONUAPLUS #### [address] Hematocrit (Bld) [Volume fraction] 30.4 % Low 34.0-46.4 [facility] Comment on above: Performed By: #### C UU, ADDONUAPLUS #### [address] Hemoglobin (Bld) [Mass/Vol] 10.1 g/dL Low 11.8-15.4 [facility] Comment on above: Performed By: #### C UU, ADDONUAPLUS #### [address] Lymphocytes (Bld) [#/Vol] 2.6 10*3/uL Normal 1.00-4.8 [facility] Comment on above: Performed By: #### C UU, ADDONUAPLUS #### [address] Lymphocytes/100 WBC (Bld) 40.3 % Normal . [facility] Comment on above: Performed By: #### C UU, ADDONUAPLUS #### [address] MCH (RBC) [Entitic mass] 25.7 pg Normal 24.7-34.3 [facility] Comment on above: Performed By: #### C UU, ADDONUAPLUS #### [address] MCV (RBC) [Entitic vol] 77.8 fL Low 80-100 [facility] Comment on above: Performed By: #### C UU, ADDONUAPLUS #### [address] Mean Corpuscular HGB Conc 33.1 g/dL Normal 32.0-35.0 [facility] Comment on above: Performed By: #### C URenate, ADDONUAPLUS #### [address] Monocytes (Bld) [#/Vol] 0.4 10*3/uL Normal 0.0-0.8 [facility] Comment on above: Performed By: #### C URenate, ADDONUAPLUS #### [address] Monocytes/100 WBC (Bld) 6.5 % Normal . [facility] Comment on above: Performed By: #### C URenate, ADDONUAPLUS #### [address] Neutrophils (Bld) [#/Vol] 3.1 10*3/uL Normal 1.8-7.7 [facility] Comment on above: Performed By: #### C UU, ADDONUAPLUS #### [address] Neutrophils/100 WBC (Bld) 49.0 % Normal . [facility] Comment on above: Performed By: #### C UU, ADDONUAPLUS #### [address] NRBC% 0.0 /100{WBC} Normal 0-0.5 [facility] Comment on above: Performed By: #### C UU, ADDONUAPLUS #### [address] Platelet mean volume (Bld) [Entitic vol] 9.1 fL Normal 6.3-10.7 [facility] Comment on above: Performed By: #### C UU, ADDONUAPLUS #### [address] Platelets (Bld) [#/Vol] 266 10*3/uL Normal 150-450 [facility] Comment on above: Performed By: #### C UU, ADDONUAPLUS #### [address] RBC (Bld) [#/Vol] 3.91 10*6/uL Normal 3.60-5.00 [facility] Comment on above: Performed By: #### C UU, ADDONUAPLUS #### [address] WBC (Bld) [#/Vol] 6.4 10*3/uL Normal 3.8-11.6 [facility] Comment on above: Performed By: #### C UU, ADDONUAPLUS #### [address] Comprehensive Metabolic Pane krystin 11-24-2024 Albumin [Mass/Vol] 2.9 g/dL Low 3.5-5.7 [facility] Comment on above: Performed By: #### C UU, ADDONUAPLUS #### [address] Albumin/Globulin [Mass ratio] 0.8 {ratio} Normal [facility] Comment on above: Performed By: #### C UU, ADDONUAPLUS #### [address] ALP [Catalytic activity/Vol] 79 U/L Normal 34-104 [facility] Comment on above: Performed By: #### C UU, ADDONUAPLUS #### [address] ALT [Catalytic activity/Vol] 14 U/L Normal 7-52 [facility] Comment on above: Performed By: #### C UU ADDONUAPLUS #### [address] Anion gap [Moles/Vol] 9.1 mmol/L Normal 6.0-15.0 [facility] Comment on above: Performed By: #### C UU ADDONUAPLUS #### [address] AST [Catalytic activity/Vol] 12 U/L Low 13-39 [facility] Comment on above: Performed By: #### C UU ADDONUAPLUS #### [address] Bilirubin [Mass/Vol] 0.1 mg/dL Low 0.3-1.0 [facility] Comment on above: Performed By: #### C URenate ADDONUAPLUS #### [address] Calcium [Mass/Vol] 8.0 mg/dL Low 8.6-10.3 [facility] Comment on above: Performed By: #### C URenate ADDONUAPLUS #### [address] Chloride [Moles/Vol] 111 mmol/L High 98-107 [facility] Comment on above: Performed By: #### C UU ADDONUAPLUS #### [address] CO2 [Moles/Vol] 22.9 mmol/L Normal 21.0-31.0 [facility] Comment on above: Performed By: #### C UU ADDONUAPLUS #### [address] Creatinine [Mass/Vol] 2.37 mg/dL High 0.60-1.20 [facility] Comment on above: Performed By: #### C UU ADDONUAPLUS #### [address] [place] [address] [place] Creatinine Clr Calc Pharmacy 18.91 Normal [facility] Comment on above: Performed By: #### C UU, ADDONUAPLUS #### [address] Estimated GFR 22.061 mL/Min Normal [facility] Comment on above: Performed By: #### C UU, ADDONUAPLUS #### [address] Globulin (S) [Mass/Vol] 3.6 g/dL Normal [facility] Comment on above: Performed By: #### C UU, ADDONUAPLUS #### [address] Glucose [Mass/Vol] 204 mg/dL Significant change up 70-100 [facility] Comment on above: Result Comment: [facility] Glucose Reference Range is dependent on time and content of last meal. Glucose of more than 200 mg/dL in a nonstressed, ambulatory subject supports the diagnosis of Diabetes Mellitus. ADA recommended reference range Performed By: #### C UU, ADDONUAPLUS #### [address] Potassium [Moles/Vol] 5.0 mmol/L Normal 3.5-5.1 [facility] Comment on above: Performed By: #### C UU, ADDONUAPLUS #### [address] Protein [Mass/Vol] 6.5 g/dL Normal 6.4-8.9 [facility] Comment on above: Performed By: #### C UU, ADDONUAPLUS #### [address] Sodium [Moles/Vol] 138 mmol/L Normal 136-145 [facility] Comment on above: Performed By: #### C UU, ADDONUAPLUS #### [address] Urea nitrogen [Mass/Vol] 52 mg/dL High 7-25 [facility] Comment on above: Performed By: #### C UU, ADDONUAPLUS #### [facility] [address] [place] [address] Globulin Calc (S) [Mass/Vol] Ordered By: Diane Smith on 11-24-2024 Globulin (S) [Mass/Vol] Serum globulin measurement by calculation (mass/volume) [facility] Glucose Poct Glucometerson 0 11-24-2024 Glucose [Mass/Vol] 166 mg/dL Normal [facility] Comment on above: Result Comment: [place] Glucose Reference Range is dependent on time and content of last meal. Glucose of more than 200 mg/dL in a nonstressed, ambulatory subject supports the diagnosis of Diabetes Mellitus. PERFORMED BY: [place] [address] PATHOLOGIST LABOR [employer]ION BUSINESS REPRESENTATIVE NICK MOHR M.D. Performed By: #### G LULS #### Point of Care testing , Glucose [Mass/Vol] 89 mg/dL Normal [facility] Comment on above: Result Comment: [place] Glucose Reference Range is dependent on time and content of last meal. Glucose of more than 200 mg/dL in a nonstressed, ambulatory subject supports the diagnosis of Diabetes Mellitus. PERFORMED BY: [place] [address] PATHOLOGIST LABOR [employer] BUSINESS REPRESENTATIVE NICK MOHR M.D. Performed By: #### G LULS #### Point of Care testing , Glucose [Mass/Vol] 238 mg/dL Normal [facility] Comment on above: Result Comment: [place] Glucose Reference Range is dependent on time and content of last meal. Glucose of more than 200 mg/dL in a nonstressed, ambulatory subject supports the diagnosis of Diabetes Mellitus. PERFORMED BY: [place] [address] PATHOLOGIST LABOR [employer] BUSINESS REPRESENTATIVE NICK MOHR M.D. Performed By: #### C UU, ADDONUAPLUS #### [facility] [address] [place] [address] [place] Hemoglobin A1c/Hemoglobin.to tae in BloodOrdered By: Irena Schuster on 11-24-2024 HbA1c (Bld) [Mass fraction] Hemoglobin A1c percentage High 4.3-5.6 [facility] Comment on above: Increased risk for d iabetes: 5.7 - 6.4diabetes: >6.4glycemic control for adults with diabetes: <7.0 Magnesiumon 11-24-2024 Magnesium [Mass/Vol] 2.0 mg/dL Normal 1.9-2.7 [facility] Comment on above: Result Comment: PERF ORMED BY: [place] [address] PATHOLOGIST LABOR [employer] BUSINESS REPRESENTATIVE NICK MOHR M.D. Performed By: #### C KATARZYNA, ADDONUAPLUS #### [address] Magnesium [Mass/volume] in S ryan or PlasmaOrdered By: Diane Smith on 11-24-2024 Magnesium [Mass/Vol] Magnesium [Mass/vol ume] in Serum or Plasma 1.9-2.7 [facility] Phosphoruson 11-24-2024 Phosphate [Mass/Vol] 3.9 mg/dL Normal 2.5-4.5 [facility] Comment on above: Performed By: #### C KATARZYNA, ADDONUAPLUS #### [place] [id number] [place] Protein [Mass/volume] in Ser um or PlasmaOrdered By: Diane Smith on 11-24-2024 Protein [Mass/Vol] Protein [Mass/volume ] in Serum or Plasma 6.4-8.9 [facility] Serum or plasma albumin/glob ulin mass ratioOrdered By: Diane Smith on 11-24-2024 Albumin/Globulin [Mass ratio] Serum or plasma albumin/globulin mass ratio [facility] X-ray reportOrdered By: Dean Potter on 11-24-2024 Study report [facility] Main [place] [address] [place] [address] XRay Report Signed Patient: Aislinn Wheeler MR#: [id number] : 1960 Acct:[id number] Age/Sex: 64 / F ADM Date: 5 Loc: 3T Room: [address] [place] [address] Type: ADM IN Attending Dr: Diane Smith MD Copies to: MD Cory Chi DPM~ Ordering Provider: Cory Angeles DPM Date of Service: 11/24/24 XR/XR foot RT 2V: Post removal foreign body right foot 2 views of the right foot Comparison: 11/24/2024 INDICATION: Interval removal of foreign body FINDINGS: There has been interval removal of the 7 mm radiopaque foreign body identified within the plantar soft tissues of the right foot. Stable focal softtissue swelling. No fractures. No dislocation. No definite periosteal reaction. Mild degenerative changes. XR/XR foot RT 2V IMPRESSION: Interval removal of the metallic foreign body. No residual foreign body identified. Residual soft tissue swelling noted. Impression dictated by: Raf Potter M.D.11/24/2024 2:48 PM Dictation Location: [place] [address] Transcribed By: [facility] 11/24/24 144 Dictated By: Raf Potter MD 11/24/24 144 Signed By: 11/24/24 1448 [facility] Work Phone: Study report [facility] [place] [place] [address] XRay Report Signed Patient: Aislinn Wheeler MR#: [id number] : 1960 Acct:[id number] Age/Sex: 64 / F ADM Date: 5 Loc: 3T Room: 4Z2496-8 Type: ADM IN Attending Dr: Diane Smith MD Copies to: Diane Smith MD~ Ordering Provider: Diane Smith MD Date of Service: 11/23/24 XR/XR foot RT 2V: Needle? with infection? 2 views of the right foot FINDINGS: There is a 7 mm radiopaque foreign body identified within the plantar soft tissues of the right foot. There is focal soft tissue swelling. No fractures. No dislocation. No definite periosteal reaction. Mild degenerativechanges. XR/XR foot RT 2V IMPRESSION: 7 mm radiopaque foreign body noted. No definite periosteal reactionor subcutaneous emphysema. Impression dictated by: Raf Potter M.D.11/24/2024 8:07 AM Dictation Location: [facility]29 Transcribed By: AMEE 11/24/24 0807 Dictated By: Raf Potter MD 11/24/24 0805 Signed By: 11/24/24 08 [facility] Work Phone: XR foot RT 2Von 11-24-2024 XR foot RT 2V [facility] [place] [address] XRay Report Signed Patient: Aislinn Wheeler MR#: [id number] 01 : 1960 Acct:[id number] Age/Sex: 64 / F ADM Date: 11/23/24 Loc: Room: [address] [place] [address] Type: ADM IN Attending Dr: Diane Smith [...] Raf Potter M.D.11/24/2024 2:48 PM Dictation Location: [facility]29 Transcribed By: AMEE 11/24/24 1448 Dictated By: Raf Potter MD 11/24/24 1446 Signed By: 11/24/24 1448 Normal [facility] XR foot RT 2V [facility] [place] [address] XRay Report Signed Patient: Aislinn Wheeler MR#: [id number] 01 : 1960 Acct:[id number] Age/Sex: 64 / F ADM Date: 11/23/24 Loc: Room: [address] [place] [address] Type: ADM IN Attending Dr: Diane Smith MD Copies to: Diane Smith MD Ordering Provider: Diane Smith MD Date of Service: 11/23/24 XR/XR foot RT 2V: Needle? with infection? 2 views of the right foot FINDINGS: There is a 7 mm radiopaque foreign body identified within the plantar soft tissues of the right foot. There is focal soft tissue swelling. No fractures. No dislocation. No definite periosteal reaction. Mild degenerative changes. XR/XR foot RT 2V IMPRESSION: 7 mm radiopaque foreign body noted. No definite periosteal reaction or subcutaneous emphysema. Impression dictated by: Raf Potter M.D.11/24/2024 8:07 AM Dictation Location: [facility] Transcribed By: AMEE 11/24/24 0807 Dictated By: Raf Potter MD 11/24/24 0805 Signed By: 11/24/24 0807 Normal [facility] Alanine aminotransferase [En zymatic activity/volume] in Serum or PlasmaOrdered By: Jr Layne on 11-23-2024 ALT [Catalytic activity/Vol] Alanine aminotransferase [Enzymatic activity/volume] in Serum or Plasma 7-52 [facility] Albumin [Mass/volume] in Ser um or Plasma by Bromocresol green (BCG) dye binding methoOrdered By: Jr Layne on 11-23-2024 Albumin BCG dye [Mass/Vol] Albumin [Mass/volume] in Serum or Plasma by Bromocresol green (BCG) dye binding metho Low 3.5-5.7 [facility] Alkaline phosphatase [Enzyma tic activity/volume] in Serum or PlasmaOrdered By: Jr Layne on 11-23-2024 ALP [Catalytic activity/Vol] Alkaline phosphatase [Enzymatic activity/volume] in Serum or Plasma 34-104 [facility] Appearance of UrineOrdered B y: Jr Layne on 11-23-2024 Appearance (U) Urine appearance Clear [facility] Aspartate aminotransferase [ Enzymatic activity/volume] in Serum or PlasmaOrdered By: Jr Layne on 11-23-2024 AST [Catalytic activity/Vol] Aspartate aminotransferase [Enzymatic activity/volume] in Serum or Plasma 13-39 [facility] B-Type Natriuretic Peptideon 11-23-2024 Natriuretic peptide B (Bld) [Mass/Vol] 126.0 pg/mL High 5-100 [facility] Comment on above: Result Comment: PERF ORMED BY: [place] [address] PATHOLOGIST LABOR [employer] REPRESENTATIVE NICK MOHR M.D. Performed By: #### G LULS #### Point of Care testing , Bacteria [Presence] in Urine by AutomatedOrdered By: Jr Layne on 11-23-2024 Bacteria Auto Ql (U) Bacteria [Presence] in Urine by Automated None Seen [facility] Basic Metabolic Panelon Anion gap [Moles/Vol] 11.4 mmol/L Normal 6.0-15.0 [facility] Comment on above: Performed By: #### H S TROP #### [address] Calcium [Mass/Vol] 8.9 mg/dL Normal 8.6-10.3 [facility] Comment on above: Performed By: #### H S TROP #### [facility] [address] [place] [address] [place] Chloride [Moles/Vol] 111 mmol/L High 98-107 [facility] Comment on above: Performed By: #### H S TROP #### [place] [address] [place] CO2 [Moles/Vol] 19.3 mmol/L Low 21.0-31.0 [facility] Comment on above: Performed By: #### H S TROP #### [place] [address] [place] Creatinine [Mass/Vol] 2.46 mg/dL High 0.60-1.20 [facility] Comment on above: Performed By: #### H S TROP #### [address] Creatinine Clr Calc Pharmacy 18.24 Normal [facility] Comment on above: Result Comment: PERF ORMED BY: [place] [address] PATHOLOGIST LABOR [employer] REPRESENTATIVE NICK MOHR M.D. Performed By: #### H S TROP #### [address] Estimated GFR 21.096 mL/Min Normal [facility] Comment on above: Performed By: #### H S TROP #### [address] Glucose [Mass/Vol] 99 mg/dL Normal 70-100 [facility] Comment on above: Result Comment: [place] Glucose Reference Range is dependent on time and content of last meal. Glucose of more than 200 mg/dL in a nonstressed, ambulatory subject supports the diagnosis of Diabetes Mellitus. ADA recommended reference range Performed By: #### H S TROP #### [address] Potassium [Moles/Vol] 4.7 mmol/L Normal 3.5-5.1 [facility] Comment on above: Performed By: #### H S TROP #### [address] Sodium [Moles/Vol] 137 mmol/L Normal 136-145 [facility] Comment on above: Performed By: #### H S TROP #### [address] Urea nitrogen [Mass/Vol] 54 mg/dL High 7-25 [facility] Comment on above: Performed By: #### H S TROP #### [place] [address] [place] Basophils Auto (Bld) [#/Vol] Ordered By: Jr Layne on 11-23-2024 Basophils (Bld) [#/Vol] Automated basophil count 0.0-0.2 [facility] Basophils/100 WBC Auto (Bld) Ordered By: Jr Layne on 11-23-2024 Basophils/100 WBC (Bld) Automated basophil % . [facility] Bilirubin Test strip Ql (U)O rdered By: Jr Layne on 11-23-2024 Bilirubin Ql (U) Bilirubin.total [Presence] in Urine by Test strip Negative [facility] Bilirubin.total [Mass/volume ] in Serum or PlasmaOrdered By: Jr Layne on 11-23-2024 Bilirubin [Mass/Vol] Bilirubin.total [Mass/volume] in Serum or Plasma Low 0.3-1.0 [facility] C reactive protein [Mass/vol ume] in Serum or PlasmaOrdered By: Diane Smith on 11-23-2024 CRP [Mass/Vol] C reactive protein [Mass/volume] in Serum or Plasma 0.0-0.5 [facility] C-Reactive Proteinon 025 CRP [Mass/Vol] mg/L Normal 0.0-0.5 [facility] Comment on above: Result Comment: PERF ORMED BY: [place] [address] PATHOLOGIST LABOR [employer] REPRESENTATIVE NICK MOHR M.D. Performed By: #### C UU, ADDONUAPLUS #### [address] abdomen pelvis wo conon 0 11-23-2024 CT abdomen pelvis wo con [facility] [place] [address] CT Scan Report Signed Patient: Aislinn Wheeler MR#: [id number] 01 : 1960 Acct:[id number] Age/Sex: 64 / F ADM Date: 11/23/24 Loc: Room: [address] [place] [address] Type: ADM IN Attending Dr: Diane Smith MD Copies to: Diane Smith MD Ordering Provider: Diane Smith MD Date of Service: 11/23/24 CT/CT abdomen pelvis wo con: worsening renal function CT ABDOMEN AND PELVIS WITHOUT INTRAVENOUS CONTRAST: CLINICAL HISTORY: Worsening renal function, bilateral flank pain, history of lupus chronic kidney disease diabetes and hypertension COMPARISON: CT abdomen pelvis from outside facility 09/04/2024, CT chest 07/26/2011 TECHNIQUE: Spiral images were obtained through the abdomen and pelvis without intravenous contrast. This CT exam was performed using one or more following dose reduction techniques: Automated exposure control, adjustment of the mA and/or kV according to patient size, or use of iterative reconstruction technique. FINDINGS: Lung Bases: [Lingular nodule, grossly unchanged 1 cm. Cardiomegaly. Minimal dependent hypoventilatory change.] Organs:Gallbladder absent. Liver, spleen, adrenals and pancreas unremarkable. Kidneys symmetric in size with bilateral hydroureteronephrosis suspect bilateral urothelial thickening involving the ureters and collecting systems.[Degree of hydronephrosis appears minimally progressed from the prior examination. GI: Mild to moderate retained stool. No bowel obstruction. Mild colonic diverticulosis. Appendix unremarkable.[ Pelvis:[Mild to moderate bladder distention. Bladder wall appears less pronounced than prior examination over there is more bladder distention on the current examination. Uterus and adnexa are absent.] Peritoneum/Retroperitoneu m:No free air or free fluid. Moderate plaque involving the abdominal aorta and mesenteric and iliac vessels.. There are prominent periaortic and aortocaval lymph nodes up to 7 mm in size could be reactive.[ Abd wall/Bones:Mild degenerative changes of the spine. Central plate compression due to Schmorl's node at L1 appears similar prior exam.[ CT/CT abdomen pelvis wo con IMPRESSION: Severe bilateral hydroureteronephrosis, question minimally more pronounced than the the prior examination however the degree of bladder distention appears increased when compared to prior exam. Lingular nodule 1 cm size, this is unchanged from the August comparison. If not previously evaluated, CT chest could be beneficial to evaluate for any additional nodules. Based on size, percutaneous sampling or PET/CT may be warranted if there are no other priors. Impression dictated by: Raf Potter M.D.11/23/2024 6:50 PM Dictation Location: [place] [address] Transcribed By: [facility] 11/23/24 0513 Dictated By: Raf Potter MD 11/23/24 1839 Signed By: 11/23/24 1850 Normal [facility] Calcium [Mass/volume] in Ser um or PlasmaOrdered By: Jr Layne on 11-23-2024 Calcium [Mass/Vol] Calcium [Mass/volume ] in Serum or Plasma 8.6-10.3 [facility] Carbon dioxide, total [Moles /volume] in Serum or PlasmaOrdered By: Jr Layne on 11-23-2024 CO2 [Moles/Vol] Carbon dioxide, tota l [Moles/volume] in Serum or Plasma Low 21.0-31.0 [facility] Chloride [Moles/volume] in S ryan or PlasmaOrdered By: Jr Layne on 11-23-2024 Chloride [Moles/Vol] Chloride [Moles/vol ume] in Serum or Plasma 98-107 [facility] Color Auto (U)Ordered By: Dagoberto Layne on 11-23-2024 Color (U) Color of Urine by Auto Yellow [facility] Blood Count Auto Di ffon 11-23-2024 Basophils (Bld) [#/Vol] 0.1 10*3/uL Normal 0.0-0.2 [facility] Comment on above: Result Comment: PERF ORMED BY: [place] [address] PATHOLOGIST LABOR [employer] REPRESENTATIVE NICK MOHR M.D. Performed By: #### C BC #### [facility] [address] [place] [address] [place] Basophils/100 WBC (Bld) 1.0 % Normal . [facility] Comment on above: Performed By: #### C BC #### [facility] [address] [place] [address] [place] Eosinophils (Bld) [#/Vol] 0.2 10*3/uL Normal 0.0-0.45 [facility] Comment on above: Performed By: #### C BC #### [place] [address] [place] Eosinophils/100 WBC (Bld) 3.1 % Normal . [facility] Comment on above: Performed By: #### C BC #### [address] Erythrocyte distribution width (RBC) [Ratio] 13.7 % Normal 11.9-15.3 [facility] Comment on above: Performed By: #### C BC #### [address] Hematocrit (Bld) [Volume fraction] 31.5 % Low 34.0-46.4 [facility] Comment on above: Performed By: #### C BC #### [address] Hemoglobin (Bld) [Mass/Vol] 10.7 g/dL Low 11.8-15.4 [facility] Comment on above: Performed By: #### C BC #### [address] Lymphocytes (Bld) [#/Vol] 2.4 10*3/uL Normal 1.00-4.8 [facility] Comment on above: Performed By: #### C BC #### [address] Lymphocytes/100 WBC (Bld) 37.2 % Normal . [facility] Comment on above: Performed By: #### C BC #### [address] MCH (RBC) [Entitic mass] 26.5 pg Normal 24.7-34.3 [facility] Comment on above: Performed By: #### C BC #### [address] MCV (RBC) [Entitic vol] 78.3 fL Low 80-100 [facility] Comment on above: Performed By: #### C BC #### [address] Mean Corpuscular HGB Conc 33.8 g/dL Normal 32.0-35.0 [facility] Comment on above: Performed By: #### C BC #### [place] [id number] [place] Monocytes (Bld) [#/Vol] 0.4 10*3/uL Normal 0.0-0.8 [facility] Comment on above: Performed By: #### C BC #### [address] Monocytes/100 WBC (Bld) 18.48 % Normal 0.00-20.00 [facility] Comment on above: Performed By: #### C BC #### [address] Monocytes/100 WBC (Bld) 6.9 % Normal . [facility] Comment on above: Performed By: #### C BC #### [address] Neutrophils (Bld) [#/Vol] 3.3 10*3/uL Normal 1.8-7.7 [facility] Comment on above: Performed By: #### C BC #### [address] Neutrophils/100 WBC (Bld) 51.8 % Normal . [facility] Comment on above: Performed By: #### C BC #### [address] NRBC% 0.1 /100{WBC} Normal 0-0.5 [facility] Comment on above: Performed By: #### C BC #### [address] Platelet mean volume (Bld) [Entitic vol] 8.9 fL Normal 6.3-10.7 [facility] Comment on above: Performed By: #### C BC #### [place] [address] [place] Platelets (Bld) [#/Vol] 279 10*3/uL Normal 150-450 [facility] Comment on above: Performed By: #### C BC #### [place] [address] [place] RBC (Bld) [#/Vol] 4.02 10*6/uL Normal 3.60-5.00 [facility] Comment on above: Performed By: #### C BC #### [address] WBC (Bld) [#/Vol] 6.4 10*3/uL Normal 3.8-11.6 [facility] Comment on above: Performed By: #### C BC #### [address] Comprehensive Metabolic Pane krystin 11-23-2024 Albumin [Mass/Vol] 3.4 g/dL Low 3.5-5.7 [facility] Comment on above: Performed By: #### C UU ADDONUAPLUS #### [address] Albumin/Globulin [Mass ratio] 0.8 {ratio} Normal [facility] Comment on above: Performed By: #### C UU ADDONUAPLUS #### [address] ALP [Catalytic activity/Vol] 93 U/L Normal 34-104 [facility] Comment on above: Performed By: #### C UU ADDONUAPLUS #### [address] ALT [Catalytic activity/Vol] 17 U/L Normal 7-52 [facility] Comment on above: Performed By: #### C UU ADDONUAPLUS #### [address] Anion gap [Moles/Vol] 13.1 mmol/L Normal 6.0-15.[address] [facility] Comment on above: Performed By: #### C UU ADDONUAPLUS #### [address] AST [Catalytic activity/Vol] 17 U/L Normal 13-39 [facility] Comment on above: Performed By: #### C UU, ADDONUAPLUS #### [address] Bilirubin [Mass/Vol] 0.2 mg/dL Low 0.3-1.0 [facility] Comment on above: Performed By: #### C UU, ADDONUAPLUS #### [address] Calcium [Mass/Vol] 8.8 mg/dL Normal 8.6-10.3 [facility] Comment on above: Performed By: #### C UU, ADDONUAPLUS #### [address] Chloride [Moles/Vol] 107 mmol/L Normal 98-107 [facility] Comment on above: Performed By: #### C UU ADDONUAPLUS #### [address] CO2 [Moles/Vol] 20.4 mmol/L Low 21.0-31.0 [facility] Comment on above: Performed By: #### C UU ADDONUAPLUS #### [address] Creatinine [Mass/Vol] 2.62 mg/dL High 0.60-1.20 [facility] Comment on above: Performed By: #### C UU ADDONUAPLUS #### [address] Creatinine Clr Calc Pharmacy 17.13 Normal [facility] Comment on above: Performed By: #### C UU, ADDONUAPLUS #### [address] Estimated GFR 19.560 mL/Min Normal [facility] Comment on above: Performed By: #### C UU, ADDONUAPLUS #### [address] Globulin (S) [Mass/Vol] 4.3 g/dL Normal [facility] Comment on above: Performed By: #### C UU, ADDONUAPLUS #### [address] Glucose [Mass/Vol] 190 mg/dL High 70-100 [facility] Comment on above: Result Comment: [place] Glucose Reference Range is dependent on time and content of last meal. Glucose of more than 200 mg/dL in a nonstressed, ambulatory subject supports the diagnosis of Diabetes Mellitus. ADA recommended reference range Performed By: #### C UU, ADDONUAPLUS #### [facility] [address] Potassium [Moles/Vol] 5.5 mmol/L High 3.5-5.1 [facility] Comment on above: Performed By: #### C UU, ADDONUAPLUS #### [facility] [address] Protein [Mass/Vol] 7.7 g/dL Normal 6.4-8.9 [facility] Comment on above: Performed By: #### C UU, ADDONUAPLUS #### [address] Sodium [Moles/Vol] 135 mmol/L Low 136-145 [facility] Comment on above: Performed By: #### C UU, ADDONUAPLUS #### [facility] [address] [place] [address] [place] Urea nitrogen [Mass/Vol] 55 mg/dL High 7-25 [facility] Comment on above: Performed By: #### C UU, ADDONUAPLUS #### [place] [address] [place] Creatinine [Mass/volume] in Serum or PlasmaOrdered By: Jr Layne on 11-23-2024 Creatinine [Mass/Vol] Creatinine [Mass/v olume] in Serum or Plasma High 0.60-1.20 [facility] Dipstick and Microscopicon 0 11-23-2024 Appearance (U) Clear Normal Clear [facility] Comment on above: Order Comment: Name Collection Type:: Clean-Voided Midstream Performed By: #### C UU, ADDONUAPLUS #### [address] Bacteria,Urine None Seen Normal None Seen [facility] Comment on above: Order Comment: Name Collection Type:: Clean-Voided Midstream Performed By: #### C UU, ADDONUAPLUS #### [address] Bilirubin,Urine Negative Normal Negative [facility] Comment on above: Order Comment: Name Collection Type:: Clean-Voided Midstream Performed By: #### C UU, ADDONUAPLUS #### [address] Color (U) Colorless Normal Yellow [facility] Comment on above: Order Comment: Name Collection Type:: Clean-Voided Midstream Performed By: #### C UU, ADDONUAPLUS #### [address] Glucose Ql (U) 500 mg/dL High Normal [facility] Comment on above: Order Comment: Name Collection Type:: Clean-Voided Midstream Performed By: #### C UU, ADDONUAPLUS #### [address] Hyaline Casts,Urine None Normal 0-8 [facility] Comment on above: Order Comment: Name Collection Type:: Clean-Voided Midstream Result Comment: PERF ORMED BY: [place] [address] PATHOLOGIST LABOR [employer] REPRESENTATIVE NICK MOHR M.D. Performed By: #### C UU, ADDONUAPLUS #### [address] Ketones Ql (U) Negative Normal Negative [facility] Comment on above: Order Comment: Name Collection Type:: Clean-Voided Midstream Performed By: #### C UU, ADDONUAPLUS #### [address] Leukocyte esterase Test strip Ql (U) 2+ High Negative [facility] Comment on above: Order Comment: Name Collection Type:: Clean-Voided Midstream Performed By: #### C UU, ADDONUAPLUS #### [place] [address] [place] Nitrite,Urine Negative Normal Negative [facility] Comment on above: Order Comment: Name Collection Type:: Clean-Voided Midstream Performed By: #### C UU, ADDONUAPLUS #### [address] Occult Blood,Urine Negative Normal Negative [facility] Comment on above: Order Comment: Name Collection Type:: Clean-Voided Midstream Result Comment: PERF ORMED BY: [place] [address] PATHOLOGIST LABOR [employer] REPRESENTATIVE NICK MOHR M.D. Performed By: #### C UU, ADDONUAPLUS #### [address] pH (U) 6.0 [pH] Normal 5.0-9.0 [facility] Comment on above: Order Comment: Name Collection Type:: Clean-Voided Midstream Performed By: #### C UU, ADDONUAPLUS #### [address] Protein (U) [Mass/Vol] 100 mg/dL High Negative [facility] Comment on above: Order Comment: Name Collection Type:: Clean-Voided Midstream Performed By: #### C UU, ADDONUAPLUS #### [place] [address] [place] RBC,Urine 1-2 Normal 0-4 [facility] Comment on above: Order Comment: Name Collection Type:: Clean-Voided Midstream Performed By: #### C UU, ADDONUAPLUS #### [place] [address] [place] Specificy [place],Urine 1.010 Normal 1.001-1.030 [facility] Comment on above: Order Comment: Name Collection Type:: Clean-Voided Midstream Performed By: #### C UU, ADDONUAPLUS #### [place] [address] [place] Squamous Epithelial Cell,Urine 1-2 Normal 0-2 [facility] Comment on above: Order Comment: Name Collection Type:: Clean-Voided Midstream Performed By: #### C UU, ADDONUAPLUS #### [facility] [address] [place] [id number] [facility] Urobilinogen,Urine Normal Normal Normal [facility] Comment on above: Order Comment: Name Collection Type:: Clean-Voided Midstream Performed By: #### C UU, ADDONUAPLUS #### [facility] [address] [place] [id number] [facility] WBC,Urine 5-9 High 0-4 [facility] Comment on above: Order Comment: Name Collection Type:: Clean-Voided Midstream Performed By: #### C UU, ADDONUAPLUS #### [facility] [address] [place], [place] [id number] [facility] ECG 12 lead ECGon 11-23-2024 ECG 12 lead ECG [facility] Main [place] [address] [place] [address] Electrocardiograph Report Signed Patient: Aislinn Wheeler MR#: [id number] 01 : 1960 Acct:[id number] Age/Sex: 64 / F ADM Date: 11/23/24 Loc: Room: [address] [place] [address] Type: ADM IN Attending Dr: Diane Smith MD Ordering Provider: Jr Layne DO Date of Service: 11/23/2401/12/1509 ECG/ECG 12 lead ECG: Recheck/Abnormal Lab/Rx Copies to: Test Reason : Blood Pressure : 138/65 mmHG Vent. Rate : 64 BPM Atrial Rate : 64 BPM P-R Int : 170 ms QRS Dur : 76 ms QT Int : 414 ms P-R-T Axes : 52 79 9 degrees QTcB Int : 427 ms Normal sinus rhythm Normal ECG When compared with ECG of 05-Mar-2015 11:59, T wave inversion now evident in Inferior leads Confirmed by JR LAYNE DO ([id number]) on 11/23/2024 7:14:08 PM Referred By: Electronically Signed By: JR LAYNE DO Transcribed By: MUS Signed By Jr Layne DO 11/23 1914 Normal [facility] Eosinophils Auto (Bld) [#/Vo l]Ordered By: Jr Layne on 11-23-2024 Eosinophils (Bld) [#/Vol] Automated eosinophil count 0.0-0.45 [facility] Eosinophils/100 WBC Auto (Bl d)Ordered By: Jr Layne on 11-23-2024 Eosinophils/100 WBC (Bld) Automated eosinophil % . [facility] Epithelial cells.squamous [# /area] in Urine sediment by Automated countOrdered By: Jr Layne on 11-23-2024 Epithelial cells.squamous Auto (Urine sed) [#/Area] Epithelial cells.squamous [#/area] in Urine sediment by Automated count 0-2 [facility] Erythrocyte Sedimentation Ra sam 11-23-2024 ESR (Bld) [Velocity] 66 mm/h High 0-29 [facility] Comment on above: Result Comment: PERF ORMED BY: [place] [address] PATHOLOGIST LABOR [employer] REPRESENTATIVE NICK MOHR M.D. Performed By: #### C UU, ADDONUAPLUS #### [address] Erythrocyte distribution wid th Auto (RBC) [Ratio]Ordered By: Jr Layne on 11-23-2024 Erythrocyte distribution width (RBC) [Ratio] Erythrocyte distribution width [Ratio] by Automated count 11.9-15.3 [facility] Erythrocyte sedimentation ra te by Photometric methodOrdered By: Diane Smith on 11-23-2024 ESR Photometric method (Bld) [Velocity] Erythrocyte sedimentation rate by Photometric method High 0-29 [facility] Erythrocytes [#/area] in Uri ne sediment by Automated countOrdered By: Jr Layne on 11-23-2024 RBC Auto (Urine sed) [#/Area] Erythrocytes [#/area] in Urine sediment by Automated count 0-4 [facility] Globulin Calc (S) [Mass/Vol] Ordered By: Jr Layne on 11-23-2024 Globulin (S) [Mass/Vol] Serum globulin measurement by calculation (mass/volume) [facility] Glucose Poct Glucometerson 0 11-23-2024 Glucose [Mass/Vol] 122 mg/dL Normal [facility] Comment on above: Result Comment: [place] om Glucose Reference Range is dependent on time and content of last meal. Glucose of more than 200 mg/dL in a nonstressed, ambulatory subject supports the diagnosis of Diabetes Mellitus. PERFORMED BY: [facility] [place] [address] PATHOLOGIST LABOR [employer] REPRESENTATIVE NICK MOHR M.D. Performed By: #### G LULS #### Point of Care testing , Glucose [Mass/volume] in Ser um or PlasmaOrdered By: Jr Layne on 11-23-2024 Glucose [Mass/Vol] Glucose [Mass/volume ] in Serum or Plasma High 70-100 [facility] Comment on above: ADA recommended refe rence rangeRandom Glucose Reference Range is dependent on time and content of last meal. Glucose of more than 200 mg/dL in a nonstressed, ambulatory subject supports the diagnosis of Diabetes Mellitus. Glucose [Mass/volume] in Uri ne by Test stripOrdered By: Jr Layne on 11-23-2024 Glucose Test strip (U) [Mass/Vol] Glucose [Mass/volume] in Urine by Test strip High Normal [facility] Hematocrit Auto (Bld) [Volum e fraction]Ordered By: Jr Layne on 11-23-2024 Hematocrit (Bld) [Volume fraction] Hematocrit [Volume Fraction] of Blood by Automated count Low 34.0-46.4 [facility] Hemoglobin Test strip Ql (U) Ordered By: Jr Layne on 11-23-2024 Hemoglobin Ql (U) Hemoglobin [Presence ] in Urine by Test strip Negative [facility] Hemoglobin [Mass/volume] in BloodOrdered By: Jr Layne on 11-23-2024 Hemoglobin (Bld) [Mass/Vol] Hemoglobin [Mass/volume] in Blood Low 11.8-15.4 [facility] Hyaline casts [#/area] in Ur ine sediment by Automated countOrdered By: Jr Layne on 11-23-2024 Hyaline casts Auto (Urine sed) [#/Area] Hyaline casts [#/area] in Urine sediment by Automated count 0-8 [facility] INR in Platelet poor plasma by Coagulation assayOrdered By: Jr Layne on 11-23-2024 INR Coag (PPP) [Relative time] INR in Platelet poor plasma by Coagulation assay [facility] Comment on above: INR Therapeutic Rang e A) Pre- and Peroperative OAT started two weeks before surgery. NOT HIP SURGERY: 1.5 - 2.5 HIP SURGERY: 2 - 3B) Primary and secondary prevention of venous THROMBOSIS: 2 - 3C) Active venous thrombosis, pulmonary embolismand prevention of recurrent venous thrombosis: 2 - 3D) Prevention of arterial thromboembolismincluding patients with mechanical heart valves: 3 - 4.5 Ketones Test strip Ql (U)Ord ered By: Jr Layne on 11-23-2024 Ketones Ql (U) Ketones [Presence] i n Urine by Test strip Negative [facility] Leukocyte esterase [Presence ] in Urine by Test stripOrdered By: Jr Layne on 11-23-2024 Leukocyte esterase Test strip Ql (U) Leukocyte esterase [Presence] in Urine by Test strip High Negative [facility] Leukocytes [#/area] in Urine sediment by Automated countOrdered By: Jr Layne on 11-23-2024 WBC Auto (Urine sed) [#/Area] Leukocytes [#/area] in Urine sediment by Automated count High 0-4 [facility] Leukocytes [#/volume] correc madhavi for nucleated erythrocytes in Blood by Automated counOrdered By: Jr Layne on 11-23-2024 WBC corrected for nucl RBC Auto (Bld) [#/Vol] Leukocytes [#/volume] corrected for nucleated erythrocytes in Blood by Automated coun 3.8-11.6 [facility] Lymphocytes Auto (Bld) [#/Vo l]Ordered By: Jr Layne on 11-23-2024 Lymphocytes (Bld) [#/Vol] Lymphocytes [#/volume] in Blood by Automated count 1.00-4.8 [facility] Lymphocytes/100 WBC Auto (Bl d)Ordered By: Jr Layne on 11-23-2024 Lymphocytes/100 WBC (Bld) Lymphocytes/100 leukocytes in Blood by Automated count . [facility] MCH Auto (RBC) [Entitic mass ]Ordered By: Jr Layne on 11-23-2024 MCH (RBC) [Entitic mass] MCH [Entitic mass] by Automated count 24.7-34.3 [facility] MCHC Auto (RBC) [Mass/Vol]Or dered By: Jr Layne on 11-23-2024 MCHC (RBC) [Mass/Vol] MCHC [Mass/volume] by Automated count 32.0-35.0 [facility] MCV Auto (RBC) [Entitic vol] Ordered By: Jr Layne on 11-23-2024 MCV (RBC) [Entitic vol] MCV [Entitic volume] by Automated count Low 80-100 [facility] Magnesiumon 11-23-2024 Magnesium [Mass/Vol] 2.1 mg/dL Normal 1.9-2.7 [facility] Comment on above: Result Comment: PERF ORMED BY: [place] [address] PATHOLOGIST LABOR [employer] REPRESENTATIVE NICK MOHR M.D. Performed By: #### H S TROP #### [address] Magnesium [Mass/volume] in S ryan or PlasmaOrdered By: Jr Layne on 11-23-2024 Magnesium [Mass/Vol] Magnesium [Mass/vol ume] in Serum or Plasma 1.9-2.7 [facility] Monocyte distribution width [Entitic volume] in Blood by AutomatedOrdered By: Jr Layne on 11-23-2024 Monocyte distribution width Auto (Bld) [Entitic vol] Monocyte distribution width [Entitic volume] in Blood by Automated 0.00-20.00 [facility] Monocytes Auto (Bld) [#/Vol] Ordered By: Jr Layne on 11-23-2024 Monocytes (Bld) [#/Vol] Automated blood monocyte count 0.0-0.8 [facility] Monocytes/100 WBC Auto (Bld) Ordered By: Jr Layne on 11-23-2024 Monocytes/100 WBC (Bld) Automated monocyte % . [facility] Natriuretic peptide B [Mass/ Vol]Ordered By: Jr Layne on 11-23-2024 Natriuretic peptide B (Bld) [Mass/Vol] BNP ser/plas High 5-100 [facility] Neutrophils Auto (Bld) [#/Vo l]Ordered By: Jr Layne on 11-23-2024 Neutrophils (Bld) [#/Vol] Neutrophils [#/volume] in Blood by Automated count 1.8-7.7 [facility] Neutrophils/100 WBC Auto (Bl d)Ordered By: Jr Layne on 11-23-2024 Neutrophils/100 WBC (Bld) Automated neutrophil % . [facility] Nitrite Test strip Ql (U)Ord ered By: Jr Layne on 11-23-2024 Nitrite Ql (U) Nitrite [Presence] i n Urine by Test strip Negative [facility] No Panel InformationOrdered By: Jr Layne on 11-23-2024 Estimated GFR (CKD-EPI) 19.560 mL/Min [facility] Creatinine Clearance (Chem 17.13 [facility] Nucleated erythrocytes [Pres ence] in Blood by Automated countOrdered By: Jr Layne on 11-23-2024 Nucleated RBC Auto Ql (Bld) Nucleated erythrocytes [Presence] in Blood by Automated count 0-0.5 [facility] Platelet mean volume Auto (B ld) [Entitic vol]Ordered By: Jr Layne on 11-23-2024 Platelet mean volume (Bld) [Entitic vol] Platelet mean volume [Entitic volume] in Blood by Automated count 6.3-10.7 [facility] Platelets Auto (Bld) [#/Vol] Ordered By: Jr Layne on 11-23-2024 Platelets (Bld) [#/Vol] Platelets [#/volume] in Blood by Automated count 150-450 [facility] Potassium [Moles/volume] in Serum or PlasmaOrdered By: Jr Layne on 11-23-2024 Potassium [Moles/Vol] Potassium [Moles/v olume] in Serum or Plasma High 3.5-5.1 [facility] Protein Test strip (U) [Mass /Vol]Ordered By: Jr Layne on 11-23-2024 Protein (U) [Mass/Vol] Protein [Mass/volume] in Urine by Test strip High Negative [facility] Protein [Mass/volume] in Ser um or PlasmaOrdered By: Jr Layne on 11-23-2024 Protein [Mass/Vol] Protein [Mass/volume ] in Serum or Plasma 6.4-8.9 [facility] Prothrombin Time INRon 11-23 INR Coag (PPP) [Relative time] 0.9 {INR} Normal [facility] Comment on above: Result Comment: INR Therapeutic Range A) Pre- and Peroperative OAT started two weeks before surgery. NOT HIP SURGERY: 1.5 - 2.5 HIP SURGERY: 2 - 3 B) Primary and secondary prevention of venous THROMBOSIS: 2 - 3 C) Active venous thrombosis, pulmonary embolism and prevention of recurrent venous thrombosis: 2 - 3 D) Prevention of arterial thromboembolism including patients with mechanical heart valves: 3 - 4.5 PERFORMED BY: [facility] [address] [place] [place] [address] PATHOLOGIST LABOR [employer] REPRESENTATIVE NICK MOHR M.D. Performed By: #### G LULS #### Point of Care testing , PT Coag (PPP) [Time] 10.6 s Normal 9.0-12.9 [facility] Comment on above: Result Comment: A he matocrit value greater than 55% may lead to inaccurate results in coagulation testing. Patients having hematocrit values >55% require a special collection tube for coagulation studies. Please contact the laboratory at [phone] for redraw instructions. Performed By: #### G LULS #### Point of Care testing , Prothrombin time (PT)Ordered By: Jr Layne on 11-23-2024 PT Coag (PPP) [Time] Prothrombin time (PT) 9.0- 12.9 [facility] Comment on above: A hematocrit value g reater than 55% may lead to inaccurate results in coagulation testing. Patients having hematocrit values >55% require a special collection tube for coagulation studies. Please contact the laboratory at [phone] for redraw instructions. RBC Auto (Bld) [#/Vol]Ordere d By: Jr Layne on 11-23-2024 RBC (Bld) [#/Vol] Erythrocytes [#/volu me] in Blood by Automated count 3.60-5.00 [facility] Serum or plasma albumin/glob ulin mass ratioOrdered By: Jr Layne on 11-23-2024 Albumin/Globulin [Mass ratio] Serum or plasma albumin/globulin mass ratio [facility] Serum or plasma anion gap de terminationOrdered By: Jr Layne on 11-23-2024 Anion gap [Moles/Vol] Serum or plasma an ion gap determination 6.0-15.0 [facility] Sodium [Moles/volume] in Ser um or PlasmaOrdered By: Jr Layne on 11-23-2024 Sodium [Moles/Vol] Sodium [Moles/volume ] in Serum or Plasma Low 136-145 [facility] Specific gravity Test strip (U) [Rel density]Ordered By: Jr Layne on 11-23-2024 Specific gravity (U) [Rel density] Specific gravity of Urine by Test strip 1.001-1.030 [facility] Troponin I High Sensitivityo n 11-23-2024 Troponin I High Sensitivity 7 Normal 0-15 [facility] Comment on above: Result Comment: The Troponin units of report have been changed to meet the Chest Pain Accreditation requirement, element EC5.M1l2. Troponin units are changed from pg/ml to ng/L. Also, the decimal is removed and results are in whole numbers. PERFORMED BY: [place] [address] PATHOLOGIST LABOR [employer] REPRESENTATIVE NICK MOHR M.D. Performed By: #### H S TROP #### [address] Troponin I High Sensitivity 7 Normal 0-15 [facility] Comment on above: Result Comment: The Troponin units of report have been changed to meet the Chest Pain Accreditation requirement, element EC5.M1l2. Troponin units are changed from pg/ml to ng/L. Also, the decimal is removed and results are in whole numbers. PERFORMED BY: [place] [address] PATHOLOGIST LABOR [employer] REPRESENTATIVE NICK OMHR M.D. Performed By: #### G LULS #### Point of Care testing , Troponin I High Sensitivity 6 Normal 0-15 [facility] Comment on above: Result Comment: The Troponin units of report have been changed to meet the Chest Pain Accreditation requirement, element EC5.M1l2. Troponin units are changed from pg/ml to ng/L. Also, the decimal is removed and results are in whole numbers. PERFORMED BY: [place] [address] PATHOLOGIST LABOR [employer] REPRESENTATIVE NICK MOHR M.D. Performed By: #### H S TROP #### [address] Troponin I.cardiac [Mass/vol ume] in Serum or Plasma by Detection limit <= 0.01 ng/Ordered By: Diane Smith on 11-23-2024 Troponin I.cardiac DL <= 0.01 ng/mL [Mass/Vol] Troponin I.cardiac [Mass/volume] in Serum or Plasma by Detection limit <= 0.01 ng/ 0-15 [facility] Comment on above: The Troponin units o f report have been changed to meet the Chest Pain Accreditation requirement, element EC5.M1l2. Troponin units are changed from pg/ml to ng/L. Also, the decimal is removed and results are in whole numbers. Troponin I.cardiac DL <= 0.01 ng/mL [Mass/Vol] Troponin I.cardiac [Mass/volume] in Serum or Plasma by Detection limit <= 0.01 ng/ 0-15 [facility] Comment on above: The Troponin units o f report have been changed to meet the Chest Pain Accreditation requirement, element EC5.M1l2. Troponin units are changed from pg/ml to ng/L. Also, the decimal is removed and results are in whole numbers. Urea nitrogen [Mass/volume] in Serum or PlasmaOrdered By: Jr Layne on 11-23-2024 Urea nitrogen [Mass/Vol] Urea nitrogen [Mass/volume] in Serum or Plasma High 7-25 [facility] Urine Cultureon 11-23-2024 Bacteria identified Cx Nom (U) No Growth 2 Days PERFORMED BY: [place] [address] PATHOLOGIST LABOR [employer] REPRESENTATIVE NICK MOHR M.D. [place] [facility] Comment on above: Performed By: #### C UU, ADDONUAPLUS #### [place] [id number] [facility] Urine cultureOrdered By: Cora Layne on 11-23-2024 Bacteria identified Cx Nom (U) Urine culture [facility] Urobilinogen Test strip (U) [Mass/Vol]Ordered By: Jr Layne on 11-23-2024 Urobilinogen (U) [Mass/Vol] Urobilinogen [Mass/volume] in Urine by Test strip Normal [facility] WBC Auto (Bld) [#/Vol]Ordere d By: Jr Layne on 11-23-2024 WBC (Bld) [#/Vol] Leukocytes [#/volume ] in Blood by Automated count 3.8-11.6 [facility] X-ray reportOrdered By: Dean Potter on 11-23-2024 Study report [place] [id number] XRay Report Signed Patient: Aislinn Wheeler MR#: [id number] : 1960 Acct:[id number] Age/Sex: 64 / F ADM Date: 5 Loc: ER Room: Type: [facility] ER Attending Dr: Copies to: Jr Layne DO~ Ordering Provider: Jr Layne DO Date of Service: 11/23/24 XR/XR chest 1V portable: Recheck/Abnormal Lab/Rx SINGLE VIEW CHEST CLINICAL HISTORY: poor kidney function abnormal lab COMPARISON: CT chest 07/26/2011 FINDINGS: Enlarged cardiomediastinal silhouette. Lungs are clear. No lesion or pneumothorax. XR/XR chest 1V portable IMPRESSION: CARDIOMEGALY. NO ACUTE PLEURAL-PARENCHYMAL DISEASE. Impression dictated by: Raf Potter M.D.11/23/2024 4:55 PM Dictation Location: [place] [address] Transcribed By: [facility] 11/23/241654 Dictated By: Raf Potter MD 11/23/241651 Signed By: 11/23/241654 [facility] Work Phone: XR chest 1V portableon 11-23 XR chest 1V portable [facility] Main [place] [address] [place] [address] XRay Report Signed Patient: Aislinn Wheeler MR#: [id number] : 1960 Acct:[id number] Age/Sex: 64 / F ADM Date: 11/23/24 Loc: ER Room: Type: [facility] ER Attending Dr: Copies to: Jr Layne DO Ordering Provider: Jr Layne DO Date of Service: 11/23/24 XR/XR chest 1V portable: Recheck/Abnormal Lab/Rx SINGLE VIEW CHEST CLINICAL HISTORY: poor kidney function abnormal lab COMPARISON: CT chest 07/26/2011 FINDINGS: Enlarged cardiomediastinal silhouette. Lungs are clear. No lesion or pneumothorax. XR/XR chest 1V portable IMPRESSION: CARDIOMEGALY. NO ACUTE PLEURAL-PARENCHYMAL DISEASE. Impression dictated by: Raf Potter M.D.11/23/2024 4:55 PM Dictation Location: [place] [address] Transcribed By: [facility] 11/23/24 165 Dictated By: Raf Potter MD 11/23/241651 Signed By: 11/23/24 1655 Normal [facility] pH Test strip (U)Ordered By: Jr Layne on 11-23-2024 pH (U) pH of Urine by Test strip 5.0-9.0 [facility] ECG 12-LEADon 11-22-2024 [place] [address] Electrocardiograph Report Signed Patient: AISLINN WHEELER MR#: [id number] : 1960 Acct:[id number] Age/Sex: 64 / F ADM Date: 11/21/24 Loc: PST Attending Dr: Ramon Enrique D.P.M. Ordering Physician: Ramon Enrique D.P.M. 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 Measurements Intervals [place] Rate: 57 P: 52 [place]: 183 QRS: 45 QRSD: 82 T: 54 QT: 452 QTc: 441 Interpretive Statements SINUS BRADYCARDIA Otherwise normal ECG Compared to ECG 09/04/2024 13:57:55 No significant change Electronically Signed On 11-22-2024 15:11:41 EDT by GALO MUKHERJEE M.D. Dictated By: GALO MUKHERJEE Signed By: 11/22/241510 DD/ 30 TD/TT: Remote Sensing Analyst: [facility] RadiologyChito MD - 11/22/2024 [place] [address] Electrocardiograph Report Signed Patient: AISLINN WHEELER MR#: [id number] : 1960 Acct:[id number] Age/Sex: 64 / F ADM Date: 11/21/24 Loc: PST Attending Dr: Ramon Enrique D.P.M. Ordering Physician: Ramon Enrique D.P.M. 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 Measurements Intervals [place] Rate: 57 P: 52 [place]: 183 QRS: 45 QRSD: 82 T: 54 QT: 452 QTc: 441 Interpretive Statements SINUS BRADYCARDIA Otherwise normal ECG Compared to ECG 09/04/2024 13:57:55 No significant change Electronically Signed On 11-22-2024 15:11:41 EDT by GALO MUKHERJEE M.D. Dictated By: GALO MUKHERJEE Signed By: 11/22/241510 DD/ 30 TD/TT: Remote Sensing Analyst: [facility] ECG 12-LEADOrdered By: Radio logist Radiology on 11-22-2024 [facility] Work Phone: ALL CBC WITH AUTO DIFFon BASOPHILS ABSOLUTE AUTO 0.1 [facility] Basophils/100 WBC (Bld) 0.6 % 0.2 - 2.0 % [facility] Eosinophils/100 WBC (Bld) 1.9 % 0.9 - 7.0 % [facility] Erythrocyte distribution width (RBC) [Ratio] 13.4 % 11.0 - 15.0 % [facility] Hematocrit (Bld) [Volume fraction] 33.8 % Low 36.0 - 48.0 % [facility] Hemoglobin (Bld) [Mass/Vol] 10.9 g/dL Low 12.0 - 16.0 g/dL [facility] IMMATURE GRANULOCYTES ABS AUTO 0.05 High [facility] Immature granulocytes/100 WBC (Bld) 0.6 % High 0.0 - 0.5 % [facility] Interpretation and review of laboratory results Abnormal [facility] LYMPHOCYTES ABSOLUTE AUTO 2.2 [facility] Lymphocytes/100 WBC (Bld) 26.3 % 20.5 - 60.0 % [facility] MCH (RBC) [Entitic mass] 26 pg Low 26.7 - 34.0 pg [facility] MCHC (RBC) [Mass/Vol] 32.2 g/dL 29.9 - 35.2 g/dL [facility] MCV (RBC) [Entitic vol] 80.7 fL Low 81.0 - 99.0 fL [facility] MONOCYTES ABSOLUTE AUTO 0.5 [facility] Monocytes/100 WBC (Bld) 5.6 % 1.7 - 12.0 % [facility] NEUTROPHILS ABSOLUTE AUTO 5.5 [facility] Neutrophils/100 WBC (Bld) 65 % 43.0 - 75.0 % [facility] Platelet mean volume (Bld) [Entitic vol] 10.7 fL 9.5 - 13.5 fL [facility]H EO # 0.2 [facility] PLT 289 [facility] RBC 4.19 Low [facility] WBC 8.4 [facility] ECG 12-LEADon 11-21-2024 Radiology Study observation (narrative) [facility] HbA1c (Bld) [Mass fraction]o n 11-18-2024 Interpretation and review of laboratory results Abnormal [facility] Laboratory - Hematology and Cell countson 11-18-2024 HbA1c (Bld) [Mass fraction] 9.40 % [facility] XR FOOT RT MIN 3Von 11-15-[address] [address] XRay Report Signed Patient: AISLINN WHEELER MR#: [id number] : 1960 Acct:[id number] Age/Sex: 64 / F ADM Date: 11/14/24 Loc: [facility] Attending Dr: Agusto Olmstead NP Ordering Physician: Agusto Olmstead NP Date of Service: 11/14/24 Procedure(s): XR foot RT min 3V Accession Number(s): [id number] cc: Agusto Olmstead NP [place] [id number] Patient Name: AISLINN WHEELER MRN: [id number] date: 1960 Sex: F Assigned Patient Location: [facility] Current Patient Location: [facility] Accession/Order Number: [id number] Exam Date: 11/14/2024 16:41 Report Date: 11/14/2024 16:45 At the request of: AGUSTO OLMSTEAD NP Procedure: XR foot RT min [...] IS SUSPECTED. Impression dictated by: Kyree White Jr. DIrinaOIrina11/14/2024 4:45 PM Dictation Location: [place] [address] Electronically authenticated by: [id number] Y Date: 11/14/2024 16:45 Dictated By: Kyree White M.D. Signed By: 11/14/241646 DD/ 44 TD/TT: Remote Sensing Analyst: [facility] Nuvia Mcallisterogangelique george MD - 11/14/2024 [place] [address] XRay Report Signed Patient: AISLINN WHEELER MR#: [id number] : 1960 Acct:[id number] Age/Sex: 64 / F ADM Date: 11/14/24 Loc: [facility] Attending Dr: Agusto Olmstead NP Ordering Physician: Agusto Olmstead NP Date of Service: 11/14/24 Procedure(s): XR foot RT min 3V Accession Number(s): [id number] cc: Agusto Olmstead NP [place] [address] Patient Name: AISLINN WHEELER MRN: [facility]:[id number] date: 1960 Sex: F Assigned Patient Location: [facility] Current Patient Location: [facility] Accession/Order Number: [id number] Exam Date: 11/14/2024 16:41 Report Date: 11/14/2024 16:45 At the request of: AGUSTO OLMSTEAD NP Procedure: XR foot RT min [...] White Jr., D.O.11/14/2024 4:45 PM Dictation Location: [facility]--18 Electronically authenticated by: [id number] Y Date: 11/14/2024 16:45 Dictated By: Kyree White M.D. Signed By: 11/14/241646 DD/ 44 TD/TT: Remote Sensing Analyst: [facility] [employer] Radiology Study observation (narrative) [facility] XR FOOT RT MIN 3VOrdered By: Radiologist Radiology on 11-14-2024 [facility] [employer] Work Phone: Basic Metabolic Panelon 08-21 Anion gap [Moles/Vol] 13.4 mmol/L Normal 6.0-15.0 [facility] Comment on above: Performed By: #### B MP #### [address] Calcium [Mass/Vol] 8.5 mg/dL Low 8.6-10.3 [facility] Comment on above: Performed By: #### B MP #### [facility] [address] Chloride [Moles/Vol] 102 mmol/L Normal 98-107 [facility] Comment on above: Performed By: #### B MP #### [facility] [address] CO2 [Moles/Vol] 27.3 mmol/L Normal 21.0-31.0 [facility] Comment on above: Performed By: #### B MP #### [facility] [address] [place] [address] [place] Creatinine [Mass/Vol] 3.08 mg/dL High 0.60-1.20 [facility] Comment on above: Performed By: #### B MP #### [address] Creatinine Clr Calc Pharmacy 13.95 Normal [facility] Comment on above: Result Comment: PERF ORMED BY: [address] [place] [address] PATHOLOGIST LABOR [employer] REPRESENTATIVE NICK MOHR M.D. Performed By: #### B MP #### [facility] [address] Estimated GFR 16.109 mL/Min Normal [facility] Comment on above: Performed By: #### B MP #### [facility] [address] Glucose [Mass/Vol] 151 mg/dL High 70-100 [facility] Comment on above: Result Comment: [facility] Glucose Reference Range is dependent on time and content of last meal. Glucose of more than 200 mg/dL in a nonstressed, ambulatory subject supports the diagnosis of Diabetes Mellitus. ADA recommended reference range Performed By: #### B MP #### [address] Potassium [Moles/Vol] 4.7 mmol/L Normal 3.5-5.1 [facility] Comment on above: Performed By: #### B MP #### [address] Sodium [Moles/Vol] 138 mmol/L Significant change down 136-145 [facility] Comment on above: Performed By: #### B MP #### [address] Urea nitrogen [Mass/Vol] 53 mg/dL High 7-25 [facility] Comment on above: Performed By: #### B MP #### [address] Calcium [Mass/volume] in Ser um or PlasmaOrdered By: Gilmer Tai on 09-08-2024 Calcium [Mass/Vol] Calcium [Mass/volume ] in Serum or Plasma Low 8.6-10.3 [facility] Carbon dioxide, total [Moles /volume] in Serum or PlasmaOrdered By: Gilmer Tai on 09-08-2024 CO2 [Moles/Vol] Carbon dioxide, tota l [Moles/volume] in Serum or Plasma 21.0-31.0 [facility] Chloride [Moles/volume] in S ryan or PlasmaOrdered By: Gilmer Tai on 09-08-2024 Chloride [Moles/Vol] Chloride [Moles/vol ume] in Serum or Plasma 98-107 [facility] Creatinine [Mass/volume] in Serum or PlasmaOrdered By: Gilmer Tai on 09-08-2024 Creatinine [Mass/Vol] Creatinine [Mass/v olume] in Serum or Plasma High 0.60-1.20 [facility] Glucose Glucometer (BldC) [M ass/Vol]Ordered By: Gilmer Tai on 09-08-2024 Glucose [Mass/Vol] Capillary blood gluc ose measurement by glucometer (mass/volume) [facility] Comment on above: Random Glucose Refer ence Range is dependent on time and content of last meal. Glucose of more than 200 mg/dL in a nonstressed, ambulatory subject supports the diagnosis of Diabetes Mellitus. Glucose Poct Glucometerson 0 09-08-2024 Commemt1 Glu2: Cleaned Meter Normal [facility] Comment on above: Result Comment: PERF ORMED BY: [facility] [address] [place] [address] PATHOLOGIST LABOR [employer] REPRESENTATIVE NICK MOHR M.D. Performed By: #### G LULS #### Point of Care testing , Glucose [Mass/Vol] 311 mg/dL Normal [facility] Comment on above: Result Comment: [place] om Glucose Reference Range is dependent on time and content of last meal. Glucose of more than 200 mg/dL in a nonstressed, ambulatory subject supports the diagnosis of Diabetes Mellitus. Performed By: #### G LULS #### Point of Care testing , Glucose [Mass/volume] in Ser um or PlasmaOrdered By: Gilmer Tai on 09-08-2024 Glucose [Mass/Vol] Glucose [Mass/volume ] in Serum or Plasma High 70-100 [facility] Comment on above: ADA recommended refe rence rangeRandom Glucose Reference Range is dependent on time and content of last meal. Glucose of more than 200 mg/dL in a nonstressed, ambulatory subject supports the diagnosis of Diabetes Mellitus. No Panel InformationOrdered By: Gilmer Tai on 09-08-2024 Bedside Glucose Comment Glu2: cleaned meter [facility] Estimated GFR (CKD-EPI) 16.109 mL/Min [facility] Creatinine Clearance (Chem 13.95 [facility] Potassium [Moles/volume] in Serum or PlasmaOrdered By: Gilmer Tai on 09-08-2024 Potassium [Moles/Vol] Potassium [Moles/v olume] in Serum or Plasma 3.5-5.1 [facility] Serum or plasma anion gap de terminationOrdered By: Gilmer Tai on 09-08-2024 Anion gap [Moles/Vol] Serum or plasma an ion gap determination 6.0-15.0 [facility] Sodium [Moles/volume] in Ser um or PlasmaOrdered By: Gilmer Tai on 09-08-2024 Sodium [Moles/Vol] Sodium [Moles/volume ] in Serum or Plasma Significant change down 136-145 [facility] Comment on above: [place]: 132 on -0600 Urea nitrogen [Mass/volume] in Serum or PlasmaOrdered By: Gilmer Tai on 09-08-2024 Urea nitrogen [Mass/Vol] Urea nitrogen [Mass/volume] in Serum or Plasma High 7-25 [facility] Alanine aminotransferase [En zymatic activity/volume] in Serum or PlasmaOrdered By: Alejandro Vallejo on 09-07-2024 ALT [Catalytic activity/Vol] Alanine aminotransferase [Enzymatic activity/volume] in Serum or Plasma 7-52 [facility] Albumin [Mass/volume] in Ser um or Plasma by Bromocresol green (BCG) dye binding methoOrdered By: Alejandro Vallejo on 09-07-2024 Albumin BCG dye [Mass/Vol] Albumin [Mass/volume] in Serum or Plasma by Bromocresol green (BCG) dye binding metho Low 3.5-5.7 [facility] Alkaline phosphatase [Enzyma tic activity/volume] in Serum or PlasmaOrdered By: Alejandro Vallejo on 09-07-2024 ALP [Catalytic activity/Vol] Alkaline phosphatase [Enzymatic activity/volume] in Serum or Plasma 34-104 [facility] Aspartate aminotransferase [ Enzymatic activity/volume] in Serum or PlasmaOrdered By: Alejandro Vallejo on 09-07-2024 AST [Catalytic activity/Vol] Aspartate aminotransferase [Enzymatic activity/volume] in Serum or Plasma 13-39 [facility] Basophils Auto (Bld) [#/Vol] Ordered By: Alejandro Vallejo on 09-07-2024 Basophils (Bld) [#/Vol] Automated basophil count 0.0-0.2 [facility] Basophils/100 WBC Auto (Bld) Ordered By: Alejandro Vallejo on 09-07-2024 Basophils/100 WBC (Bld) Automated basophil % . [facility] Bilirubin.total [Mass/volume ] in Serum or PlasmaOrdered By: Alejandro Vallejo on 09-07-2024 Bilirubin [Mass/Vol] Bilirubin.total [Mass/volume] in Serum or Plasma Low 0.3-1.0 [facility] Complete Blood Count Auto Di ffon 09-07-2024 Basophils (Bld) [#/Vol] 0.0 10*3/uL Normal 0.0-0.2 [facility] Comment on above: Result Comment: PERF ORMED BY: [place] [address] PATHOLOGIST LABOR [employer] REPRESENTATIVE NICK MOHR M.D. Performed By: #### C BC, CMP #### [address] Basophils/100 WBC (Bld) 0.5 % Normal . [facility] Comment on above: Performed By: #### C BC, CMP #### [place] [address] [place] Eosinophils (Bld) [#/Vol] 0.2 10*3/uL Normal 0.0-0.45 [facility] Comment on above: Performed By: #### C BC, CMP #### [place] [address] [place] Eosinophils/100 WBC (Bld) 2.9 % Normal . [facility] Comment on above: Performed By: #### C BC, CMP #### [address] Erythrocyte distribution width (RBC) [Ratio] 14.0 % Normal 11.9-15.3 [facility] Comment on above: Performed By: #### C BC, CMP #### [address] Hematocrit (Bld) [Volume fraction] 27.2 % Low 34.0-46.4 [facility] Comment on above: Performed By: #### C BC, CMP #### [address] Hemoglobin (Bld) [Mass/Vol] 9.2 g/dL Low 11.8-15.4 [facility] Comment on above: Performed By: #### C BC, CMP #### [address] Lymphocytes (Bld) [#/Vol] 2.0 10*3/uL Normal 1.00-4.8 [facility] Comment on above: Performed By: #### C BC, CMP #### [address] Lymphocytes/100 WBC (Bld) 24.8 % Normal . [facility] Comment on above: Performed By: #### C BC, CMP #### [address] MCH (RBC) [Entitic mass] 26.6 pg Normal 24.7-34.3 [facility] Comment on above: Performed By: #### C BC, CMP #### [address] MCV (RBC) [Entitic vol] 79.2 fL Low 80-100 [facility] Comment on above: Performed By: #### C BC, CMP #### [address] Mean Corpuscular HGB Conc 33.7 g/dL Normal 32.0-35.0 [facility] Comment on above: Performed By: #### C BC, CMP #### [address] Monocytes (Bld) [#/Vol] 0.5 10*3/uL Normal 0.0-0.8 [facility] Comment on above: Performed By: #### C BC, CMP #### [facility] [address] [place] [address] [place] Monocytes/100 WBC (Bld) 6.2 % Normal . [facility] Comment on above: Performed By: #### C BC, CMP #### [facility] [address] [place] [address] [place] Neutrophils (Bld) [#/Vol] 5.4 10*3/uL Normal 1.8-7.7 [facility] Comment on above: Performed By: #### C BC, CMP #### [place] [address] [place] Neutrophils/100 WBC (Bld) 65.6 % Normal . [facility] Comment on above: Performed By: #### C BC, CMP #### [place] [address] [place] NRBC% 0.1 /100{WBC} Normal 0-0.5 [facility] Comment on above: Performed By: #### C BC, CMP #### [place] [address] [place] Platelet mean volume (Bld) [Entitic vol] 9.4 fL Normal 6.3-10.7 [facility] Comment on above: Performed By: #### C BC, CMP #### [facility] [address] [place] [address] [place] Platelets (Bld) [#/Vol] 221 10*3/uL Normal 150-450 [facility] Comment on above: Performed By: #### C BC, CMP #### [facility] [address] [place] [address] [place] RBC (Bld) [#/Vol] 3.44 10*6/uL Low 3.60-5.00 [facility] Comment on above: Performed By: #### C BC, CMP #### [place] [address] [place] WBC (Bld) [#/Vol] 8.2 10*3/uL Normal 3.8-11.6 [facility] Comment on above: Performed By: #### C BC, CMP #### [address] Comprehensive Metabolic Pane krystin 09-07-2024 Albumin [Mass/Vol] 3.0 g/dL Low 3.5-5.7 [facility] Comment on above: Performed By: #### R ENAL #### [address] Albumin/Globulin [Mass ratio] 0.8 {ratio} Normal [facility] Comment on above: Performed By: #### R ENAL #### [address] ALP [Catalytic activity/Vol] 77 U/L Normal 34-104 [facility] Comment on above: Performed By: #### R ENAL #### [address] ALT [Catalytic activity/Vol] 9 U/L Normal 7-52 [facility] Comment on above: Performed By: #### R ENAL #### [address] Anion gap [Moles/Vol] 11.3 mmol/L Normal 6.0-15.[address] [facility] Comment on above: Performed By: #### R ENAL #### [address] AST [Catalytic activity/Vol] 14 U/L Normal 13-39 [facility] Comment on above: Performed By: #### R ENAL #### [address] Bilirubin [Mass/Vol] 0.2 mg/dL Low 0.3-1.0 [facility] Comment on above: Performed By: #### R ENAL #### [address] Calcium [Mass/Vol] 8.3 mg/dL Low 8.6-10.3 [facility] Comment on above: Performed By: #### R ENAL #### [address] Chloride [Moles/Vol] 100 mmol/L Normal 98-107 [facility] Comment on above: Performed By: #### R ENAL #### [address] CO2 [Moles/Vol] 25.8 mmol/L Normal 21.0-31.0 [facility] Comment on above: Performed By: #### R ENAL #### [address] Creatinine [Mass/Vol] 3.09 mg/dL High 0.60-1.20 [facility] Comment on above: Performed By: #### R ENAL #### [address] Creatinine Clr Calc Pharmacy 14.45 Normal [facility] Comment on above: Result Comment: PERF ORMED BY: [place] [address] PATHOLOGIST LABOR [employer] REPRESENTATIVE NICK MOHR M.D. Performed By: #### R ENAL #### [address] Estimated GFR 16.046 mL/Min Normal [facility] Comment on above: Performed By: #### R ENAL #### [address] Globulin (S) [Mass/Vol] 3.8 g/dL Normal [facility] Comment on above: Performed By: #### R ENAL #### [address] Glucose [Mass/Vol] 155 mg/dL High 70-100 [facility] Comment on above: Result Comment: [place] Glucose Reference Range is dependent on time and content of last meal. Glucose of more than 200 mg/dL in a nonstressed, ambulatory subject supports the diagnosis of Diabetes Mellitus. ADA recommended reference range Performed By: #### R ENAL #### [address] [place] [address] [place] Potassium [Moles/Vol] 5.1 mmol/L Normal 3.5-5.1 [facility] Comment on above: Performed By: #### R ENAL #### [facility] [address] Protein [Mass/Vol] 6.8 g/dL Normal 6.4-8.9 [facility] Comment on above: Performed By: #### R ENAL #### [address] Sodium [Moles/Vol] 132 mmol/L Low 136-145 [facility] Comment on above: Performed By: #### R ENAL #### [address] Urea nitrogen [Mass/Vol] 51 mg/dL High 7-25 [facility] Comment on above: Performed By: #### R ENAL #### [address] Eosinophils Auto (Bld) [#/Vo l]Ordered By: Alejandro Vallejo on 09-07-2024 Eosinophils (Bld) [#/Vol] Automated eosinophil count 0.0-0.45 [facility] Eosinophils/100 WBC Auto (Bl d)Ordered By: Alejandro Vallejo on 09-07-2024 Eosinophils/100 WBC (Bld) Automated eosinophil % . [facility] Erythrocyte distribution wid th Auto (RBC) [Ratio]Ordered By: Alejandro Vallejo on 09-07-2024 Erythrocyte distribution width (RBC) [Ratio] Erythrocyte distribution width [Ratio] by Automated count 11.9-15.3 [facility] Globulin Calc (S) [Mass/Vol] Ordered By: Alejandro Vallejo on 09-07-2024 Globulin (S) [Mass/Vol] Serum globulin measurement by calculation (mass/volume) [facility] Glucose Poct Glucometerson 0 09-07-2024 Glucose [Mass/Vol] 195 mg/dL Normal [facility] Comment on above: Result Comment: [place] Glucose Reference Range is dependent on time and content of last meal. Glucose of more than 200 mg/dL in a nonstressed, ambulatory subject supports the diagnosis of Diabetes Mellitus. PERFORMED BY: [place] [address] PATHOLOGIST LABOR [employer] REPRESENTATIVE NICK MOHR M.D. Performed By: #### H S TROP #### [address] Glucose [Mass/Vol] 203 mg/dL Normal [facility] Comment on above: Result Comment: [place] Glucose Reference Range is dependent on time and content of last meal. Glucose of more than 200 mg/dL in a nonstressed, ambulatory subject supports the diagnosis of Diabetes Mellitus. PERFORMED BY: [place] [address] PATHOLOGIST LABOR [employer] REPRESENTATIVE NICK MOHR M.D. Performed By: #### G LULS #### Point of Care testing , Glucose [Mass/Vol] 153 mg/dL Normal [facility] Comment on above: Result Comment: [place] Glucose Reference Range is dependent on time and content of last meal. Glucose of more than 200 mg/dL in a nonstressed, ambulatory subject supports the diagnosis of Diabetes Mellitus. PERFORMED BY: [place] [address] PATHOLOGIST LABOR [employer] REPRESENTATIVE NICK MOHR M.D. Performed By: #### H S TROP #### [address] Hematocrit Auto (Bld) [Volum e fraction]Ordered By: Alejandro Vallejo on 09-07-2024 Hematocrit (Bld) [Volume fraction] Hematocrit [Volume Fraction] of Blood by Automated count Low 34.0-46.4 [facility] Hemoglobin [Mass/volume] in BloodOrdered By: Alejandro Vallejo on 09-07-2024 Hemoglobin (Bld) [Mass/Vol] Hemoglobin [Mass/volume] in Blood Low 11.8-15.4 [facility] Leukocytes [#/volume] correc madhavi for nucleated erythrocytes in Blood by Automated counOrdered By: Alejandro Vallejo on 09-07-2024 WBC corrected for nucl RBC Auto (Bld) [#/Vol] Leukocytes [#/volume] corrected for nucleated erythrocytes in Blood by Automated coun 3.8-11.6 [facility] Lymphocytes Auto (Bld) [#/Vo l]Ordered By: Alejandro Vallejo on 09-07-2024 Lymphocytes (Bld) [#/Vol] Lymphocytes [#/volume] in Blood by Automated count 1.00-4.8 [facility] Lymphocytes/100 WBC Auto (Bl d)Ordered By: Alejandro Vallejo on 09-07-2024 Lymphocytes/100 WBC (Bld) Lymphocytes/100 leukocytes in Blood by Automated count . [facility] MCH Auto (RBC) [Entitic mass ]Ordered By: lAejandro Vallejo on 09-07-2024 MCH (RBC) [Entitic mass] MCH [Entitic mass] by Automated count 24.7-34.3 [facility] MCHC Auto (RBC) [Mass/Vol]Or dered By: Alejandro Vallejo on 09-07-2024 MCHC (RBC) [Mass/Vol] MCHC [Mass/volume] by Automated count 32.0-35.0 [facility] MCV Auto (RBC) [Entitic vol] Ordered By: Alejandro Vallejo on 09-07-2024 MCV (RBC) [Entitic vol] MCV [Entitic volume] by Automated count Low 80-100 [facility] Monocytes Auto (Bld) [#/Vol] Ordered By: Alejandro Vallejo on 09-07-2024 Monocytes (Bld) [#/Vol] Automated blood monocyte count 0.0-0.8 [facility] Monocytes/100 WBC Auto (Bld) Ordered By: Alejandro Vallejo on 09-07-2024 Monocytes/100 WBC (Bld) Automated monocyte % . [facility] Neutrophils Auto (Bld) [#/Vo l]Ordered By: Alejandro Vallejo on 09-07-2024 Neutrophils (Bld) [#/Vol] Neutrophils [#/volume] in Blood by Automated count 1.8-7.7 [facility] Neutrophils/100 WBC Auto (Bl d)Ordered By: Alejandro Vallejo on 09-07-2024 Neutrophils/100 WBC (Bld) Automated neutrophil % . [facility] Nucleated erythrocytes [Pres ence] in Blood by Automated countOrdered By: Alejandro Vallejo on 09-07-2024 Nucleated RBC Auto Ql (Bld) Nucleated erythrocytes [Presence] in Blood by Automated count 0-0.5 [facility] Platelet mean volume Auto (B ld) [Entitic vol]Ordered By: Alejandro Vallejo on 09-07-2024 Platelet mean volume (Bld) [Entitic vol] Platelet mean volume [Entitic volume] in Blood by Automated count 6.3-10.7 [facility] Platelets Auto (Bld) [#/Vol] Ordered By: Alejandro Vallejo on 09-07-2024 Platelets (Bld) [#/Vol] Platelets [#/volume] in Blood by Automated count 150-450 [facility] Protein [Mass/volume] in Ser um or PlasmaOrdered By: Alejandro Vallejo on 09-07-2024 Protein [Mass/Vol] Protein [Mass/volume ] in Serum or Plasma 6.4-8.9 [facility] RBC Auto (Bld) [#/Vol]Ordere d By: Alejandro Vallejo on 09-07-2024 RBC (Bld) [#/Vol] Erythrocytes [#/volu me] in Blood by Automated count Low 3.60-5.00 [facility] Serum or plasma albumin/glob ulin mass ratioOrdered By: Alejandro Vallejo on 09-07-2024 Albumin/Globulin [Mass ratio] Serum or plasma albumin/globulin mass ratio [facility] WBC Auto (Bld) [#/Vol]Ordere d By: Alejandro Vallejo on 09-07-2024 WBC (Bld) [#/Vol] Leukocytes [#/volume ] in Blood by Automated count 3.8-11.6 [facility] Complete Blood Count Auto Di ffon 09-06-2024 Basophils (Bld) [#/Vol] 0.1 10*3/uL Normal 0.0-0.2 [facility] Comment on above: Result Comment: PERF ORMED BY: [facility] [address] [place] [address] PATHOLOGIST LABOR [employer] REPRESENTATIVE NICK MOHR M.D. Performed By: #### C UU, ADDONUAPLUS #### [address] Basophils/100 WBC (Bld) 0.8 % Normal . [facility] Comment on above: Performed By: #### C UU, ADDONUAPLUS #### [address] Eosinophils (Bld) [#/Vol] 0.2 10*3/uL Normal 0.0-0.45 [facility] Comment on above: Performed By: #### C UU, ADDONUAPLUS #### [address] Eosinophils/100 WBC (Bld) 1.3 % Normal . [facility] Comment on above: Performed By: #### C UU, ADDONUAPLUS #### [address] Erythrocyte distribution width (RBC) [Ratio] 14.1 % Normal 11.9-15.3 [facility] Comment on above: Performed By: #### C UU, ADDONUAPLUS #### [address] Hematocrit (Bld) [Volume fraction] 31.3 % Low 34.0-46.4 [facility] Comment on above: Performed By: #### C UU, ADDONUAPLUS #### [address] Hemoglobin (Bld) [Mass/Vol] 10.1 g/dL Low 11.8-15.4 [facility] Comment on above: Performed By: #### C UU, ADDONUAPLUS #### [place] [address] [place] Lymphocytes (Bld) [#/Vol] 2.5 10*3/uL Normal 1.00-4.8 [facility] Comment on above: Performed By: #### C UU, ADDONUAPLUS #### [place] [address] [place] Lymphocytes/100 WBC (Bld) 19.0 % Normal . [facility] Comment on above: Performed By: #### C UU, ADDONUAPLUS #### [address] MCH (RBC) [Entitic mass] 25.9 pg Normal 24.7-34.3 [facility] Comment on above: Performed By: #### C UU, ADDONUAPLUS #### [address] MCV (RBC) [Entitic vol] 80.1 fL Normal 80-100 [facility] Comment on above: Performed By: #### C UU, ADDONUAPLUS #### [address] Mean Corpuscular HGB Conc 32.4 g/dL Normal 32.0-35.0 [facility] Comment on above: Performed By: #### C UU, ADDONUAPLUS #### [address] Monocytes (Bld) [#/Vol] 0.6 10*3/uL Normal 0.0-0.8 [facility] Comment on above: Performed By: #### C UU, ADDONUAPLUS #### [address] Monocytes/100 WBC (Bld) 4.4 % Normal . [facility] Comment on above: Performed By: #### C UU, ADDONUAPLUS #### [address] Neutrophils (Bld) [#/Vol] 10.0 10*3/uL High 1.8-7.7 [facility] Comment on above: Performed By: #### C UU, ADDONUAPLUS #### [address] Neutrophils/100 WBC (Bld) 74.5 % Normal . [facility] Comment on above: Performed By: #### C UU, ADDONUAPLUS #### [address] NRBC% 0.0 /100{WBC} Normal 0-0.5 [facility] Comment on above: Performed By: #### C UU, ADDONUAPLUS #### [address] Platelet mean volume (Bld) [Entitic vol] 9.9 fL Normal 6.3-10.7 [facility] Comment on above: Performed By: #### C UU, ADDONUAPLUS #### [address] Platelets (Bld) [#/Vol] 299 10*3/uL Normal 150-450 [facility] Comment on above: Performed By: #### C UU, ADDONUAPLUS #### [address] RBC (Bld) [#/Vol] 3.91 10*6/uL Normal 3.60-5.00 [facility] Comment on above: Performed By: #### C UU, ADDONUAPLUS #### [address] WBC (Bld) [#/Vol] 13.4 10*3/uL High 3.8-11.6 [facility] Comment on above: Performed By: #### C UU, ADDONUAPLUS #### [address] Comprehensive Metabolic Pane krystin 09-06-2024 Albumin [Mass/Vol] 3.7 g/dL Normal 3.5-5.7 [facility] Comment on above: Performed By: #### C UU, ADDONUAPLUS #### [address] Albumin/Globulin [Mass ratio] 0.8 {ratio} Normal [facility] Comment on above: Performed By: #### C UU, ADDONUAPLUS #### [address] ALP [Catalytic activity/Vol] 91 U/L Normal 34-104 [facility] Comment on above: Performed By: #### C UU, ADDONUAPLUS #### [facility] [address] [place] [address] [place] ALT [Catalytic activity/Vol] 9 U/L Normal 7-52 [facility] Comment on above: Performed By: #### C UU, ADDONUAPLUS #### [facility] [address] Anion gap [Moles/Vol] 11.5 mmol/L Normal 6.0-15.[address] [facility] Comment on above: Performed By: #### C UU, ADDONUAPLUS #### [facility] [address] AST [Catalytic activity/Vol] 15 U/L Normal 13-39 [facility] Comment on above: Performed By: #### C UU, ADDONUAPLUS #### [address] Bilirubin [Mass/Vol] 0.2 mg/dL Low 0.3-1.0 [facility] Comment on above: Performed By: #### C UU, ADDONUAPLUS #### [place] [address] [place] Calcium [Mass/Vol] 9.7 mg/dL Normal 8.6-10.3 [facility] Comment on above: Performed By: #### C UU, ADDONUAPLUS #### [facility] [address] [place] [address] [place] Chloride [Moles/Vol] 110 mmol/L High 98-107 [facility] Comment on above: Performed By: #### C UU, ADDONUAPLUS #### [facility] [address] [place] [address] [place] CO2 [Moles/Vol] 16.2 mmol/L Low 21.0-31.0 [facility] Comment on above: Performed By: #### C UU, ADDONUAPLUS #### [facility] [address] [place] [address] [place] Creatinine [Mass/Vol] 2.73 mg/dL High 0.60-1.20 [facility] Comment on above: Performed By: #### C UU, ADDONUAPLUS #### [address] Creatinine Clr Calc Pharmacy 14.56 Normal [facility] Comment on above: Performed By: #### C UU, ADDONUAPLUS #### [address] Estimated GFR 18.618 mL/Min Normal [facility] Comment on above: Performed By: #### C UU, ADDONUAPLUS #### [address] Globulin (S) [Mass/Vol] 4.5 g/dL Normal [facility] Comment on above: Performed By: #### C UU, ADDONUAPLUS #### [address] Glucose [Mass/Vol] 168 mg/dL Significant change up 70-100 [facility] Comment on above: Result Comment: [facility] Glucose Reference Range is dependent on time and content of last meal. Glucose of more than 200 mg/dL in a nonstressed, ambulatory subject supports the diagnosis of Diabetes Mellitus. ADA recommended reference range Performed By: #### C UU, ADDONUAPLUS #### [address] Potassium [Moles/Vol] 5.7 mmol/L High 3.5-5.1 [facility] Comment on above: Performed By: #### C UU, ADDONUAPLUS #### [address] Protein [Mass/Vol] 8.2 g/dL Normal 6.4-8.9 [facility] Comment on above: Performed By: #### C UU, ADDONUAPLUS #### [address] Sodium [Moles/Vol] 132 mmol/L Low 136-145 [facility] Comment on above: Performed By: #### C UU, ADDONUAPLUS #### [address] [address] Urea nitrogen [Mass/Vol] 45 mg/dL High 7-25 [facility] Comment on above: Performed By: #### C UU, ADDONUAPLUS #### [address] Glucose Poct Glucometerson 0 09-06-2024 Glucose [Mass/Vol] 264 mg/dL Normal [facility] Comment on above: Result Comment: [place] om Glucose Reference Range is dependent on time and content of last meal. Glucose of more than 200 mg/dL in a nonstressed, ambulatory subject supports the diagnosis of Diabetes Mellitus. PERFORMED BY: [place] [address] PATHOLOGIST LABOR [employer] REPRESENTATIVE NICK MOHR M.D. Performed By: #### C UU, ADDONUAPLUS #### [address] Commemt1 Glu2: Cleaned Meter Normal [facility] Comment on above: Result Comment: PERF ORMED BY: [place] [address] PATHOLOGIST LABOR [employer] REPRESENTATIVE NICK MOHR M.D. Performed By: #### C UU, ADDONUAPLUS #### [address] Glucose [Mass/Vol] 166 mg/dL Normal [facility] Comment on above: Result Comment: [place] Glucose Reference Range is dependent on time and content of last meal. Glucose of more than 200 mg/dL in a nonstressed, ambulatory subject supports the diagnosis of Diabetes Mellitus. Performed By: #### C UU, ADDONUAPLUS #### [address] Magnesiumon 09-06-2024 Magnesium [Mass/Vol] 1.5 mg/dL Low 1.9-2.7 [facility] Comment on above: Result Comment: PERF ORMED BY: [address] [place] [address] PATHOLOGIST LABOR [employer] REPRESENTATIVE NICK MOHR M.D. Performed By: #### C AMY COLÓN #### [address] Magnesium [Mass/volume] in S ryan or PlasmaOrdered By: Alejandro Vallejo on 09-06-2024 Magnesium [Mass/Vol] Magnesium [Mass/vol ume] in Serum or Plasma Low 1.9-2.7 [facility] Phosphate [Mass/volume] in S ryan or PlasmaOrdered By: Alejandro Vallejo on 09-06-2024 Phosphate [Mass/Vol] Phosphate [Mass/vol ume] in Serum or Plasma High 2.5-4.5 [facility] Phosphoruson 09-06-2024 Phosphate [Mass/Vol] 5.4 mg/dL High 2.5-4.5 [facility] Comment on above: Performed By: #### C KATARZYNA, ZAHIDAPLUS #### [address] US renal BIon 09-06-2024 US renal BI [facility] Main [place] [address] [place] [address] Ultrasound Report Signed Patient: Aislinn Wheeler MR#: [id number] [birth year] : 1960 Acct:[id number] Age/Sex: 64 / F ADM Date: 09/05/24 Loc: Room: [address] [place] [address] Type: ADM IN Attending Dr: Gilmer Tai MD Ordering Provider: Ashley Diaz APRN Date of Service: 09/06/24 US/US renal BI: ANATOLIY Copies to: MD Ashley Love APRN Bilateral Renal Ultrasound HISTORY: Acute kidney injury COMPARISON: 09/04/2024 RIGHT kidney measures 8.7 cm. LEFT kidney measures 10.2 cm. Hydronephrosis: Bilateral hydronephrosis. AP dimension on the right 2.8 cm AP dimension of the left 2.2 cm. RENAL STONE: 3 mm right shadowing echogenic stone. RENAL LESIONS: No renal lesion identified. Lobular contours of both kidneys. URINARY BLADDER: Bilateral ureteral jets identified. Irregularity urinary bladder wall thickening up to 7 mm. REPRODUCTIVE STRUCTURES Not assessed US/US renal BI IMPRESSION : Moderate to severe bilateral hydronephrosis. Impression dictated by: Jori Ruiz M.D.09/06/2024 9:48 PM Dictation Location: [place] [address] Tech: Griselda Vital Transcribed By: AMEE 09/06/242147 Dictated By: Jori Ruiz DO 09/06/242145 Signed By: 09/06/242147 Normal [facility] Alanine aminotransferase [En zymatic activity/volume] in Serum or PlasmaOrdered By: Yessica Barros on 09-05-2024 ALT [Catalytic activity/Vol] Alanine aminotransferase [Enzymatic activity/volume] in Serum or Plasma 7-52 [facility] Albumin [Mass/volume] in Ser um or Plasma by Bromocresol green (BCG) dye binding methoOrdered By: Yessica Barros on 09-05-2024 Albumin BCG dye [Mass/Vol] Albumin [Mass/volume] in Serum or Plasma by Bromocresol green (BCG) dye binding metho Low 3.5-5.7 [facility] Alkaline phosphatase [Enzyma tic activity/volume] in Serum or PlasmaOrdered By: Yessica Barros on 09-05-2024 ALP [Catalytic activity/Vol] Alkaline phosphatase [Enzymatic activity/volume] in Serum or Plasma 34-104 [facility] Appearance of UrineOrdered B y: Yessica Barros on 09-05-2024 Appearance (U) Urine appearance Abnormal Clear [facility] Aspartate aminotransferase [ Enzymatic activity/volume] in Serum or PlasmaOrdered By: Yessica Barros on 09-05-2024 AST [Catalytic activity/Vol] Aspartate aminotransferase [Enzymatic activity/volume] in Serum or Plasma 13-39 [facility] Bacteria [Presence] in Urine by AutomatedOrdered By: Yessica Barros on 09-05-2024 Bacteria Auto Ql (U) Bacteria [Presence] in Urine by Automated High None Seen [facility] Basophils Auto (Bld) [#/Vol] Ordered By: Yessica Barros on 09-05-2024 Basophils (Bld) [#/Vol] Automated basophil count 0.0-0.2 [facility] Basophils/100 WBC Auto (Bld) Ordered By: Yessica Barros on 09-05-2024 Basophils/100 WBC (Bld) Automated basophil % . [facility] Bilirubin Test strip Ql (U)O rdered By: Yessica Barros on 09-05-2024 Bilirubin Ql (U) Bilirubin.total [Presence] in Urine by Test strip Negative [facility] Bilirubin.total [Mass/volume ] in Serum or PlasmaOrdered By: Yessica Barros on 09-05-2024 Bilirubin [Mass/Vol] Bilirubin.total [Mass/volume] in Serum or Plasma Low 0.3-1.0 [facility] Calcium [Mass/volume] in Ser um or PlasmaOrdered By: Yessica Barros on 09-05-2024 Calcium [Mass/Vol] Calcium [Mass/volume ] in Serum or Plasma Low 8.6-10.3 [facility] Carbon dioxide, total [Moles /volume] in Serum or PlasmaOrdered By: Yessica Barros on 09-05-2024 CO2 [Moles/Vol] Carbon dioxide, tota l [Moles/volume] in Serum or Plasma Low 21.0-31.0 [facility] Chloride [Moles/volume] in S ryan or PlasmaOrdered By: Yessica Barros on 09-05-2024 Chloride [Moles/Vol] Chloride [Moles/vol ume] in Serum or Plasma High 98-107 [facility] Chloride [Moles/volume] in U rineOrdered By: Gilmer Tai on 09-05-2024 Chloride (U) [Moles/Vol] Chloride [Moles/volume] in Urine [facility] Comment on above: No reference range e stablished Chloride, Urine (Random)on 0 09-05-2024 Chloride, Urine (Random) 54 mmol/L Normal [facility] Comment on above: Order Comment: Comme nt addon admission urine Result Comment: No r eference range established PERFORMED BY: [facility] [address] [place] [address] PATHOLOGIST LABOR [employer] REPRESENTATIVE NICK MOHR M.D. Performed By: #### R ENAL #### [address] Color Auto (U)Ordered By: Rodriguez Barros on 09-05-2024 Color (U) Color of Urine by Auto Abnormal Yellow Fi [facility] Complete Blood Count Auto Di ffon 09-05-2024 Basophils (Bld) [#/Vol] 0.1 10*3/uL Normal 0.0-0.2 [facility] Comment on above: Result Comment: PERF ORMED BY: [place] [address] PATHOLOGIST LABOR [employer] REPRESENTATIVE NICK MOHR M.D. Performed By: #### C UDENISE DewittUAPLUS #### [address] Basophils/100 WBC (Bld) 1.4 % Normal . [facility] Comment on above: Performed By: #### C URenate ADDONUAPLUS #### [address] Eosinophils (Bld) [#/Vol] 0.2 10*3/uL Normal 0.0-0.45 [facility] Comment on above: Performed By: #### C URenate ADDONUAPLUS #### [address] Eosinophils/100 WBC (Bld) 2.2 % Normal . [facility] Comment on above: Performed By: #### C URenate ADDONUAPLUS #### [address] Erythrocyte distribution width (RBC) [Ratio] 14.4 % Normal 11.9-15.3 [facility] Comment on above: Performed By: #### C UU ADDONUAPLUS #### [address] Hematocrit (Bld) [Volume fraction] 30.3 % Low 34.0-46.4 [facility] Comment on above: Performed By: #### C URenate ADDONUAPLUS #### [address] Hemoglobin (Bld) [Mass/Vol] 10.0 g/dL Low 11.8-15.4 [facility] Comment on above: Performed By: #### C UU, ADDONUAPLUS #### [address] Lymphocytes (Bld) [#/Vol] 2.1 10*3/uL Normal 1.00-4.8 [facility] Comment on above: Performed By: #### C UU, ADDONUAPLUS #### [address] Lymphocytes/100 WBC (Bld) 25.0 % Normal . [facility] Comment on above: Performed By: #### C UU, ADDONUAPLUS #### [address] MCH (RBC) [Entitic mass] 26.2 pg Normal 24.7-34.3 [facility] Comment on above: Performed By: #### C UU, ADDONUAPLUS #### [address] MCV (RBC) [Entitic vol] 79.6 fL Low 80-100 [facility] Comment on above: Performed By: #### C UU, ADDONUAPLUS #### [address] Mean Corpuscular HGB Conc 32.9 g/dL Normal 32.0-35.0 [facility] Comment on above: Performed By: #### C UU, ADDONUAPLUS #### [address] Monocytes (Bld) [#/Vol] 0.5 10*3/uL Normal 0.0-0.8 [facility] Comment on above: Performed By: #### C UU, ADDONUAPLUS #### [address] Monocytes/100 WBC (Bld) 17.62 % Normal 0.00-20.00 [facility] Comment on above: Performed By: #### C UU, ADDONUAPLUS #### [address] Monocytes/100 WBC (Bld) 5.8 % Normal . [facility] Comment on above: Performed By: #### C UU, ADDONUAPLUS #### [address] Neutrophils (Bld) [#/Vol] 5.5 10*3/uL Normal 1.8-7.7 [facility] Comment on above: Performed By: #### C UU, ADDONUAPLUS #### [address] Neutrophils/100 WBC (Bld) 65.6 % Normal . [facility] Comment on above: Performed By: #### C UU, ADDONUAPLUS #### [address] NRBC% 0.1 /100{WBC} Normal 0-0.5 [facility] Comment on above: Performed By: #### C UU, ADDONUAPLUS #### [address] Platelet mean volume (Bld) [Entitic vol] 9.1 fL Normal 6.3-10.7 [facility] Comment on above: Performed By: #### C UU, ADDONUAPLUS #### [address] Platelets (Bld) [#/Vol] 254 10*3/uL Normal 150-450 [facility] Comment on above: Performed By: #### C UU, ADDONUAPLUS #### [address] RBC (Bld) [#/Vol] 3.81 10*6/uL Normal 3.60-5.00 [facility] Comment on above: Performed By: #### C UU, ADDONUAPLUS #### [address] WBC (Bld) [#/Vol] 8.4 10*3/uL Normal 3.8-11.6 [facility] Comment on above: Performed By: #### C UU, ADDONUAPLUS #### [address] Comprehensive Metabolic Pane krystin 09-05-2024 Albumin [Mass/Vol] 3.3 g/dL Low 3.5-5.7 [facility] Comment on above: Performed By: #### C UU, ADDONUAPLUS #### [address] Albumin/Globulin [Mass ratio] 0.8 {ratio} Normal [facility] Comment on above: Performed By: #### C UU, ADDONUAPLUS #### [address] ALP [Catalytic activity/Vol] 84 U/L Normal 34-104 [facility] Comment on above: Performed By: #### C UU, ADDONUAPLUS #### [address] ALT [Catalytic activity/Vol] 10 U/L Normal 7-52 [facility] Comment on above: Performed By: #### C UU, ADDONUAPLUS #### [address] Anion gap [Moles/Vol] 12.0 mmol/L Normal 6.0-15.0 [facility] Comment on above: Performed By: #### C UU, ADDONUAPLUS #### [address] AST [Catalytic activity/Vol] 14 U/L Normal 13-39 [facility] Comment on above: Performed By: #### C UU, ADDONUAPLUS #### [address] Bilirubin [Mass/Vol] 0.2 mg/dL Low 0.3-1.0 [facility] Comment on above: Performed By: #### C UU, ADDONUAPLUS #### [address] Calcium [Mass/Vol] 8.4 mg/dL Low 8.6-10.3 [facility] Comment on above: Performed By: #### C UU, ADDONUAPLUS #### [address] Chloride [Moles/Vol] 109 mmol/L High 98-107 [facility] Comment on above: Performed By: #### C UU, ADDONUAPLUS #### [address] CO2 [Moles/Vol] 18.7 mmol/L Low 21.0-31.0 [facility] Comment on above: Performed By: #### C UU, ADDONUAPLUS #### [address] Creatinine [Mass/Vol] 2.48 mg/dL High 0.60-1.20 [facility] Comment on above: Performed By: #### C UU, ADDONUAPLUS #### [address] Creatinine Clr Calc Pharmacy 18.03 Normal [facility] Comment on above: Result Comment: PERF ORMED BY: [place] [address] PATHOLOGIST LABOR [employer] REPRESENTATIVE NICK MOHR M.D. Performed By: #### C UU, ADDONUAPLUS #### [address] Estimated GFR 20.892 mL/Min Normal [facility] Comment on above: Performed By: #### C UU, ADDONUAPLUS #### [address] Globulin (S) [Mass/Vol] 4.3 g/dL Normal [facility] Comment on above: Performed By: #### C UU, ADDONUAPLUS #### [address] Glucose [Mass/Vol] 296 mg/dL High 70-100 [facility] Comment on above: Result Comment: [place] Glucose Reference Range is dependent on time and content of last meal. Glucose of more than 200 mg/dL in a nonstressed, ambulatory subject supports the diagnosis of Diabetes Mellitus. ADA recommended reference range Performed By: #### C UU, ADDONUAPLUS #### [address] Potassium [Moles/Vol] 5.7 mmol/L High 3.5-5.1 [facility] Comment on above: Performed By: #### C UU, ADDONUAPLUS #### [address] Protein [Mass/Vol] 7.6 g/dL Normal 6.4-8.9 [facility] Comment on above: Performed By: #### C UU, ADDONUAPLUS #### [address] Sodium [Moles/Vol] 134 mmol/L Low 136-145 [facility] Comment on above: Performed By: #### C UU, ADDONUAPLUS #### [address] Urea nitrogen [Mass/Vol] 40 mg/dL High 7-25 [facility] Comment on above: Performed By: #### C UU, ADDONUAPLUS #### [address] Creatinine [Mass/volume] in Serum or PlasmaOrdered By: Yessica Barros on 09-05-2024 Creatinine [Mass/Vol] Creatinine [Mass/v olume] in Serum or Plasma High 0.60-1.20 [facility] Creatinine [Mass/volume] in UrineOrdered By: Gilmer Tai on 09-05-2024 Creatinine (U) [Mass/Vol] Creatinine [Mass/volume] in Urine [facility] Comment on above: No reference range e stablished Creatinine, Urine (Random)on 09-05-2024 Creatinine, Urine (Random) 32.00 mg/dL Normal [facility] Comment on above: Order Comment: Comme nt addon admission urine Result Comment: No r eference range established Performed By: #### R ENAL #### [facility] [address] [place] [address] [place] Dipstick and Microscopicon 0 09-05-2024 Appearance (U) Cloudy Critically abnormal Clear [facility] Comment on above: Order Comment: Name Collection Type:: Clean-Voided Midstream Performed By: #### R ENAL #### [place] [address] [place] Bacteria,Urine 4+ High None Seen [facility] Comment on above: Order Comment: Name Collection Type:: Clean-Voided Midstream Performed By: #### R ENAL #### [place] [address] [place] Bilirubin,Urine Negative Normal Negative [facility] Comment on above: Order Comment: Name Collection Type:: Clean-Voided Midstream Performed By: #### R ENAL #### [place] [address] [place] Color (U) Dark-Yellow Critically abnormal Yellow [facility] Comment on above: Order Comment: Name Collection Type:: Clean-Voided Midstream Performed By: #### R ENAL #### [place] [id number] [place] Glucose Ql (U) 300 mg/dL High Normal [facility] Comment on above: Order Comment: Name Collection Type:: Clean-Voided Midstream Performed By: #### R ENAL #### [place] [address] [place] Hyaline Casts,Urine 0 [LPF] Normal 0-8 [facility] Comment on above: Order Comment: Name Collection Type:: Clean-Voided Midstream Performed By: #### R ENAL #### [place] [id number] [place] Ketones Ql (U) Negative Normal Negative [facility] Comment on above: Order Comment: Name Collection Type:: Clean-Voided Midstream Performed By: #### R ENAL #### [address] Leukocyte esterase Test strip Ql (U) 4+ High Negative [facility] Comment on above: Order Comment: Name Collection Type:: Clean-Voided Midstream Performed By: #### R ENAL #### [place] [address] [place] Mucus,Urine Rare Normal [facility] Comment on above: Order Comment: Name Collection Type:: Clean-Voided Midstream Result Comment: PERF ORMED BY: [place] [address] PATHOLOGIST LABOR [employer] REPRESENTATIVE NICK MOHR M.D. Performed By: #### R ENAL #### [place] [address] [place] Nitrite,Urine Positive High Negative [facility] Comment on above: Order Comment: Name Collection Type:: Clean-Voided Midstream Performed By: #### R ENAL #### [place] [address] [place] Occult Blood,Urine 1+ High Negative [facility] Comment on above: Order Comment: Name Collection Type:: Clean-Voided Midstream Result Comment: PERF ORMED BY: [place] [address] PATHOLOGIST LABOR [employer] REPRESENTATIVE NICK MOHR M.D. Performed By: #### R ENAL #### [place] [address] [place] pH (U) 6.0 [pH] Normal 5.0-9.0 [facility] Comment on above: Order Comment: Name Collection Type:: Clean-Voided Midstream Performed By: #### R ENAL #### [place] [address] [place] Protein (U) [Mass/Vol] 70 mg/dL High Negative [facility] Comment on above: Order Comment: Name Collection Type:: Clean-Voided Midstream Performed By: #### R ENAL #### [address] RBC,Urine 3 [HPF] Normal 0-4 [facility] Comment on above: Order Comment: Name Collection Type:: Clean-Voided Midstream Performed By: #### R ENAL #### [address] Specificy [place],Urine 1.007 Normal 1.001-1.030 [facility] Comment on above: Order Comment: Name Collection Type:: Clean-Voided Midstream Performed By: #### R ENAL #### [address] Squamous Epithelial Cell,Urine 1 [HPF] Normal 0-2 [facility] Comment on above: Order Comment: Name Collection Type:: Clean-Voided Midstream Performed By: #### R ENAL #### [address] Urobilinogen,Urine Normal Normal Normal [facility] Comment on above: Order Comment: Name Collection Type:: Clean-Voided Midstream Performed By: #### R ENAL #### [address] WBC CLUMP, Urine Many High None Seen [facility] Comment on above: Order Comment: Name Collection Type:: Clean-Voided Midstream Performed By: #### R ENAL #### [address] WBC,Urine Innumerable High 0-4 [facility] Comment on above: Order Comment: Name Collection Type:: Clean-Voided Midstream Performed By: #### R ENAL #### [place] [address] [place] Eosinophils Auto (Bld) [#/Vo l]Ordered By: Yessica Barros on 09-05-2024 Eosinophils (Bld) [#/Vol] Automated eosinophil count 0.0-0.45 [facility] Eosinophils/100 WBC Auto (Bl d)Ordered By: Yessica Barros on 09-05-2024 Eosinophils/100 WBC (Bld) Automated eosinophil % . [facility] Epithelial cells.squamous [# /area] in Urine sediment by Automated countOrdered By: Yessica Barros on 09-05-2024 Epithelial cells.squamous Auto (Urine sed) [#/Area] Epithelial cells.squamous [#/area] in Urine sediment by Automated count 0-2 [facility] Erythrocyte distribution wid th Auto (RBC) [Ratio]Ordered By: Yessica Barrso on 09-05-2024 Erythrocyte distribution width (RBC) [Ratio] Erythrocyte distribution width [Ratio] by Automated count 11.9-15.3 [facility] Erythrocytes [#/area] in Uri ne sediment by Automated countOrdered By: Yessica Barros on 09-05-2024 RBC Auto (Urine sed) [#/Area] Erythrocytes [#/area] in Urine sediment by Automated count 0-4 [facility] Globulin Calc (S) [Mass/Vol] Ordered By: Yessica Barros on 09-05-2024 Globulin (S) [Mass/Vol] Serum globulin measurement by calculation (mass/volume) [facility] Glucose Glucometer (BldC) [M ass/Vol]Ordered By: Alejandro Vallejo on 09-05-2024 Glucose [Mass/Vol] Capillary blood gluc ose measurement by glucometer (mass/volume) [facility] Comment on above: Random Glucose Refer ence Range is dependent on time and content of last meal. Glucose of more than 200 mg/dL in a nonstressed, ambulatory subject supports the diagnosis of Diabetes Mellitus. Glucose Poct Glucometerson 0 09-05-2024 Glucose [Mass/Vol] 124 mg/dL Normal [facility] Comment on above: Result Comment: [facility] Glucose Reference Range is dependent on time and content of last meal. Glucose of more than 200 mg/dL in a nonstressed, ambulatory subject supports the diagnosis of Diabetes Mellitus. PERFORMED BY: [place] [address] PATHOLOGIST LABOR [employer] REPRESENTATIVE NICK MOHR M.D. Performed By: #### H S TROP #### [address] Glucose [Mass/volume] in Ser um or PlasmaOrdered By: Yessica Barros on 09-05-2024 Glucose [Mass/Vol] Glucose [Mass/volume ] in Serum or Plasma High 70-100 [facility] Comment on above: ADA recommended refe rence rangeRandom Glucose Reference Range is dependent on time and content of last meal. Glucose of more than 200 mg/dL in a nonstressed, ambulatory subject supports the diagnosis of Diabetes Mellitus. Glucose [Mass/volume] in Uri ne by Test stripOrdered By: Yessica Barros on 09-05-2024 Glucose Test strip (U) [Mass/Vol] Glucose [Mass/volume] in Urine by Test strip High Normal [facility] Hematocrit Auto (Bld) [Volum e fraction]Ordered By: Yessica Barros on 09-05-2024 Hematocrit (Bld) [Volume fraction] Hematocrit [Volume Fraction] of Blood by Automated count Low 34.0-46.4 [facility] Hemoglobin Test strip Ql (U) Ordered By: Yessica Barros on 09-05-2024 Hemoglobin Ql (U) Hemoglobin [Presence ] in Urine by Test strip High Negative [facility] Hemoglobin [Mass/volume] in BloodOrdered By: Yessica Barros on 09-05-2024 Hemoglobin (Bld) [Mass/Vol] Hemoglobin [Mass/volume] in Blood Low 11.8-15.4 [facility] Hyaline casts [#/area] in Ur ine sediment by Automated countOrdered By: Yessica Barros on 09-05-2024 Hyaline casts Auto (Urine sed) [#/Area] Hyaline casts [#/area] in Urine sediment by Automated count 0-8 [facility] Ketones Test strip Ql (U)Ord ered By: Yessica Barros on 09-05-2024 Ketones Ql (U) Ketones [Presence] i n Urine by Test strip Negative [facility] Leukocyte clumps [Presence] in Urine by AutomatedOrdered By: Yessica Barros on 09-05-2024 Leukocyte clumps Auto Ql (U) Leukocyte clumps [Presence] in Urine by Automated High None Seen [facility] Leukocyte esterase [Presence ] in Urine by Test stripOrdered By: Yessica Barros on 09-05-2024 Leukocyte esterase Test strip Ql (U) Leukocyte esterase [Presence] in Urine by Test strip High Negative [facility] Leukocytes [#/area] in Urine sediment by Automated countOrdered By: Yessica Barros on 09-05-2024 WBC Auto (Urine sed) [#/Area] Leukocytes [#/area] in Urine sediment by Automated count High 0-4 [facility] Leukocytes [#/volume] correc madhavi for nucleated erythrocytes in Blood by Automated counOrdered By: Yessica Barros on 09-05-2024 WBC corrected for nucl RBC Auto (Bld) [#/Vol] Leukocytes [#/volume] corrected for nucleated erythrocytes in Blood by Automated coun 3.8-11.6 [facility] Lymphocytes Auto (Bld) [#/Vo l]Ordered By: Yessica Barros on 09-05-2024 Lymphocytes (Bld) [#/Vol] Lymphocytes [#/volume] in Blood by Automated count 1.00-4.8 [facility] Lymphocytes/100 WBC Auto (Bl d)Ordered By: Yessica Barros on 09-05-2024 Lymphocytes/100 WBC (Bld) Lymphocytes/100 leukocytes in Blood by Automated count . [facility] MCH Auto (RBC) [Entitic mass ]Ordered By: Yessica Barros on 09-05-2024 MCH (RBC) [Entitic mass] MCH [Entitic mass] by Automated count 24.7-34.3 [facility] MCHC Auto (RBC) [Mass/Vol]Or dered By: Yessica Barros on 09-05-2024 MCHC (RBC) [Mass/Vol] MCHC [Mass/volume] by Automated count 32.0-35.0 [facility] MCV Auto (RBC) [Entitic vol] Ordered By: Yessica Barros on 09-05-2024 MCV (RBC) [Entitic vol] MCV [Entitic volume] by Automated count Low 80-100 [facility] Monocyte distribution width [Entitic volume] in Blood by AutomatedOrdered By: Yessica Barros on 09-05-2024 Monocyte distribution width Auto (Bld) [Entitic vol] Monocyte distribution width [Entitic volume] in Blood by Automated 0.00-20.00 [facility] Monocytes Auto (Bld) [#/Vol] Ordered By: Yessica Barros on 09-05-2024 Monocytes (Bld) [#/Vol] Automated blood monocyte count 0.0-0.8 [facility] Monocytes/100 WBC Auto (Bld) Ordered By: Yessica Barros on 09-05-2024 Monocytes/100 WBC (Bld) Automated monocyte % . [facility] Mucus [Presence] in Urine by AutomatedOrdered By: Yessica Barros on 09-05-2024 Mucus Auto Ql (U) Mucus [Presence] in Urine by Automated [facility] Neutrophils Auto (Bld) [#/Vo l]Ordered By: Yessica Barros on 09-05-2024 Neutrophils (Bld) [#/Vol] Neutrophils [#/volume] in Blood by Automated count 1.8-7.7 [facility] Neutrophils/100 WBC Auto (Bl d)Ordered By: Yessica Barros on 09-05-2024 Neutrophils/100 WBC (Bld) Automated neutrophil % . [facility] Nitrite Test strip Ql (U)Ord ered By: Yessica Barros on 09-05-2024 Nitrite Ql (U) Nitrite [Presence] i n Urine by Test strip High Negative [facility] No Panel InformationOrdered By: Gilmer Tai on 09-05-2024 Urine Osmolality 245 mosm Low 250-900 [facility] No Panel InformationOrdered By: Yessica Barros on 09-05-2024 Estimated GFR (CKD-EPI) 20.892 mL/Min [facility] Creatinine Clearance (Chem 18.03 [facility] Nucleated erythrocytes [Pres ence] in Blood by Automated countOrdered By: Yessica Barros on 09-05-2024 Nucleated RBC Auto Ql (Bld) Nucleated erythrocytes [Presence] in Blood by Automated count 0-0.5 [facility] Osmolality, Urineon 09-05-19 25 Osmolality, Urine 245 mosm Low 250-900 [facility] Comment on above: Order Comment: Comme nt addon admission urine Result Comment: PERF ORMED BY: [facility] [address] [place] [address] PATHOLOGIST LABOR [employer] REPRESENTATIVE NICK MOHR M.D. Performed By: #### R ENAL #### [facility] [address] [place] [address] Platelet mean volume Auto (B ld) [Entitic vol]Ordered By: Yessica Barros on 09-05-2024 Platelet mean volume (Bld) [Entitic vol] Platelet mean volume [Entitic volume] in Blood by Automated count 6.3-10.7 [facility] Platelets Auto (Bld) [#/Vol] Ordered By: Yessica Barros on 09-05-2024 Platelets (Bld) [#/Vol] Platelets [#/volume] in Blood by Automated count 150-450 [facility] Potassium [Moles/volume] in Serum or PlasmaOrdered By: Yessica Barros on 09-05-2024 Potassium [Moles/Vol] Potassium [Moles/v olume] in Serum or Plasma High 3.5-5.1 [facility] Potassium [Moles/volume] in UrineOrdered By: Gilmer Tai on 09-05-2024 Potassium (U) [Moles/Vol] Potassium [Moles/volume] in Urine [facility] Comment on above: No reference range e stablished Potassium, Urine (Random)on 09-05-2024 Potassium, Urine (Random) 19.8 mmol/L Normal [facility] Comment on above: Order Comment: Comme nt addon admission urine Result Comment: No r eference range established Performed By: #### R ENAL #### [facility] [address] [place] [address] Protein Test strip (U) [Mass /Vol]Ordered By: Yessica Barros on 09-05-2024 Protein (U) [Mass/Vol] Protein [Mass/volume] in Urine by Test strip High Negative [facility] Protein [Mass/volume] in Ser um or PlasmaOrdered By: Yessica Barros on 09-05-2024 Protein [Mass/Vol] Protein [Mass/volume ] in Serum or Plasma 6.4-8.9 [facility] RBC Auto (Bld) [#/Vol]Ordere d By: Yessica Barros on 09-05-2024 RBC (Bld) [#/Vol] Erythrocytes [#/volu me] in Blood by Automated count 3.60-5.00 [facility] Serum or plasma albumin/glob ulin mass ratioOrdered By: Yessica Barros on 09-05-2024 Albumin/Globulin [Mass ratio] Serum or plasma albumin/globulin mass ratio [facility] Serum or plasma anion gap de terminationOrdered By: Yessica Barros on 09-05-2024 Anion gap [Moles/Vol] Serum or plasma an ion gap determination 6.0-15.0 [facility] Sodium [Moles/volume] in Ser um or PlasmaOrdered By: Yessica Barros on 09-05-2024 Sodium [Moles/Vol] Sodium [Moles/volume ] in Serum or Plasma Low 136-145 [facility] Sodium [Moles/volume] in Uri neOrdered By: Gilmer Tai on 09-05-2024 Sodium (U) [Moles/Vol] Sodium [Moles/volume] in Urine [facility] Comment on above: No reference range e stablished Sodium, Urine (Random)on Sodium (U) [Moles/Vol] 53 mmol/L Normal [facility] Comment on above: Order Comment: Comme nt addon admission urine Result Comment: No r eference range established Performed By: #### R ENAL #### [address] Specific gravity Test strip (U) [Rel density]Ordered By: Yessica Barros on 09-05-2024 Specific gravity (U) [Rel density] Specific gravity of Urine by Test strip 1.001-1.030 [facility] Urea nitrogen [Mass/volume] in Serum or PlasmaOrdered By: Yessica Barros on 09-05-2024 Urea nitrogen [Mass/Vol] Urea nitrogen [Mass/volume] in Serum or Plasma High 7-25 [facility] Urine Cultureon 09-05-2024 Bacteria identified Cx Nom (U) ORGANISM: Escherichia coli (O:ESCCOL) [place] Count >100,000 Aerobic LOCO Charge ([id number]) SUSCEPTIBILITY ORGANISM: O:ESCCOL ANTIBIOTIC INTERPRETATION LOCO Amikacin S <16 Amoxacillin/K Clavulanate S <8 Ampicillin S <8 Ampicillin/Sulbactam S <4 Aztreonam S <4 Cefazolin S <2 Cefepime S <2 Ceftazidime S <1 Ceftazidime/Avibactam S <4 Ceftolozane/Tazobactam S <2 Ceftriaxone S <1 Cefuroxime S <4 Ciprofloxacin S <0.25 Ertapenem S <0.5 Gentamicin S <2 Levofloxacin S <0.5 Meropenem S <1 Meropenem/Vaborbactam S <2 Nitrofurantoin S <32 Piperacillin/Tazobactam S <8 Tetracycline S <4 Tigecycline S <2 Tobramycin S <2 Trimethoprim/Sulfamethoxa zole S <0.5 S = SUSCEPTIBLE I = INTERMEDIATE R = RESISTANT BLANK = DATA NOT AVAILABLE, OR DRUG NOT ADVISABLE OR TESTED R* = RESISTANCE DUE TO EXTENDED SPECTRUM BETA-LACTAMASES ESBL = EXTENDED SPECTRUM BETA-LACTAMASE TFG = THYMIDINE-DEPENDENT STRAIN VINEET = BETA-LACTAMASE POSITIVE IB = INDUCIBLE BETA-LACTAMASE. APPEARS IN PLACE OF 'S' WITH SPECIES KNOWN TO POSSESS INDUCIBLE BETA-LACTAMASES. POTENTIALLY THEY MAY BECOME RESISTANT TO ALL B-LACTAM DRUGS. PERFORMED BY: [place] [address] PATHOLOGIST LABOR [employer] BUSINESS REPRESENTATIVE NICK MOHR M.D. Normal [facility] Comment on above: Performed By: #### R ENAL #### [address] Urine cultureOrdered By: Shoaib Barros on 09-05-2024 Bacteria identified Cx Nom (U) Escherichia coli Abnormal [facility] Bacteria identified Cx Nom (U) Escherichia coli Abnormal [facility] Urobilinogen Test strip (U) [Mass/Vol]Ordered By: Yessica Barros on 09-05-2024 Urobilinogen (U) [Mass/Vol] Urobilinogen [Mass/volume] in Urine by Test strip Normal [facility] WBC Auto (Bld) [#/Vol]Ordere d By: Yessica Barros on 09-05-2024 WBC (Bld) [#/Vol] Leukocytes [#/volume ] in Blood by Automated count 3.8-11.6 [facility] pH Test strip (U)Ordered By: Yessica Barros on 09-05-2024 pH (U) pH of Urine by Test strip 5.0-9.0 [facility] Erythrocyte distribution wid th Auto (RBC) [Ratio]on 08-28-2024 Erythrocyte distribution width (RBC) [Ratio] Erythrocyte distribution width [Ratio] by Automated count 11.0-15.0 [facility] Estimated glomerular filtrat ion rate (GFR) non- Americanon 08-28-2024 GFR/1.73 sq M.predicted among non-blacks MDRD (S/P/Bld) [Vol rate/Area] Estimated glomerular filtration rate (GFR) non- Low >=60 mL/min/1.[address] [facility] CBC WITH PLATELET NO DI FFERENTIALon 08-28-2024 Erythrocyte distribution width (RBC) [Ratio] 13.6 % 11.0 - 15.0 % [facility] Hematocrit (Bld) [Volume fraction] 30.8 % Low 36.0 - 48.0 % [facility] Hemoglobin (Bld) [Mass/Vol] 9.8 g/dL Low 12.0 - 16.0 g/dL [facility] Interpretation and review of laboratory results Abnormal [facility] MCH (RBC) [Entitic mass] 26.3 pg Low 26.7 - 34.0 pg [facility] MCHC (RBC) [Mass/Vol] 31.8 g/dL 29.9 - 35.2 g/dL [facility] MCV (RBC) [Entitic vol] 82.6 fL 81.0 - 99.0 fL [facility] Platelet mean volume (Bld) [Entitic vol] 11.3 fL 9.5 - 13.5 fL [facility] TBH PLT 152 [facility] TBH RBC 3.73 Low [facility] WBC 8.5 [facility] Hematocrit Auto (Bld) [Volum e fraction]on 08-28-2024 Hematocrit (Bld) [Volume fraction] Hematocrit [Volume Fraction] of Blood by Automated count Low 36.0-48.0 [facility] Hemoglobin [Mass/volume] in Bloodon 08-28-2024 Hemoglobin (Bld) [Mass/Vol] Hemoglobin [Mass/volume] in Blood Low 12.0-16.0 [facility] Iron binding capacity [Mass/ volume] in Serum or Plasmaon 08-28-2024 Iron binding capacity [Mass/Vol] Iron binding capacity [Mass/volume] in Serum or Plasma 250.0-450.0 [facility] Iron saturation [Mass Fracti on] in Serum or Plasmaon 08-28-2024 Iron saturation [Mass fraction] Iron saturation [Mass Fraction] in Serum or Plasma [facility] Laboratory - Chemistry and C hemistry - challengeon 08-28-2024 Albumin [Mass/Vol] 2.8 g/dL Low 3.4-5.0 [facility] Calcium [Mass/Vol] 8.4 mg/dL Low 8.5-10.1 [facility] Chloride [Moles/Vol] 104 mmol/L 98-107 [facility] CO2 [Moles/Vol] 20.9 mmol/L Low 21.0-32.0 [facility] Cobalamin (Vitamin B12) [Mass/Vol] 302 pg/mL 232-1245 [facility] Comment on above: Performed at: - L [address] [id number] Director: Chris Luna PhD, Phone: [phone] Creatinine [Mass/Vol] 2.71 mg/dL High 0.55-1.02 [facility] Ferritin [Mass/Vol] 403.0 ng/mL High 8.0-252.0 [facility] GFR/1.73 sq M.predicted MDRD (S/P/Bld) [Vol rate/Area] 21 mL/min/{1.73_m2} Low >=60 mL/min/1.73 m 2 [facility] Glucose [Mass/Vol] 198 mg/dL High 74-106 [facility] Iron [Mass/Vol] 39.0 ug/dL Low 50.0-170.0 [facility] Magnesium [Mass/Vol] 1.6 mg/dL Low 1.8-2.4 [facility] Potassium [Moles/Vol] 5.8 mmol/L High 3.5-5.1 [facility] Sodium [Moles/Vol] 135 mmol/L Low 136-145 [facility] Urate [Mass/Vol] 5.5 mg/dL 2.6-6.0 [facility] Urea nitrogen [Mass/Vol] 45.0 mg/dL High 7.0-18.0 [facility] Urea nitrogen/Creatinine [Mass ratio] 16.6 mg/mg [facility] Bilirubin Ql (U) Negative NEGATIVE [facility] Glucose (U) [Mass/Vol] 100 mg/dL Abnormal NEGATIVE [facility] Ketones Ql (U) Negative NEGATIVE [facility] pH (U) 6.0 [pH] 5.0-9.0 [facility] Specific gravity (U) [Rel density] 1.010 1.005-1.025 [facility] Urobilinogen Qn (U) 0.2 {Madeleine'U}/dL 0.2-1.0 [facility] Laboratory - Specimen inform ationon 08-28-2024 Appearance (U) CLEAR CLEAR [facility] Color (U) LT. YELLOW YELLOW [facility] Laboratory - Urinalysison Leukocyte esterase Test strip Ql (U) MODERATE Abnormal NEGATIVE [facility] Nitrite Ql (U) Positive Abnormal NEGATIVE [facility] Protein (U) [Mass/Vol] 80.9 mg/dL High <=11.9 [facility] Protein Ql (U) 100 mg/dL Abnormal NEG/TRACE [facility] Leukocytes [#/volume] correc madhavi for nucleated erythrocytes in Blood by Automated counon 08-28-2024 WBC corrected for nucl RBC Auto (Bld) [#/Vol] Leukocytes [#/volume] corrected for nucleated erythrocytes in Blood by Automated coun 4.0-11.0 [facility] MCH Auto (RBC) [Entitic mass ]on 08-28-2024 MCH (RBC) [Entitic mass] MCH [Entitic mass] by Automated count Low 26.7-34.0 [facility] MCHC Auto (RBC) [Mass/Vol]on 08-28-2024 MCHC (RBC) [Mass/Vol] MCHC [Mass/volume] by Automated count 29.9-35.2 [facility] MCV Auto (RBC) [Entitic vol] on 08-28-2024 MCV (RBC) [Entitic vol] MCV [Entitic volume] by Automated count 81.0-99.0 [facility] Microalbumin [Mass/volume] i n Urineon 08-28-2024 Albumin DL <= 20 mg/L (U) [Mass/Vol] Microalbumin [Mass/volume] in Urine <=30.0 [facility] No Panel Informationon 08-28 25-Hydroxy Vitamin D Total 8.5 ng/mL [facility] Comment on above: <20 ng/mL Vit D defi cient20-<30 ng/mL Vit D izndxikoknyv29-192 ng/mL Vit D sufficient>100 ng/mL Potential Toxicity Folate 14.20 ng/mL 8.60-58.90 [facility] Parathyroid Hormone (Intact) 103 pg/mL Abnormal 15-65 [facility] Comment on above: Performed at: [facility] [address] [id number] Director: Chris Luna PhD, Phone: [phone] Phosphorus Level 5.5 mg/dL High 2.6-4.7 [facility] Urine Occult Blood TRACE-I NEGATIVE [facility] Urine Random Creatinine 18.25 mg/dL Low 20.00-300.0 0 [facility] Platelet mean volume Auto (B ld) [Entitic vol]on 08-28-2024 Platelet mean volume (Bld) [Entitic vol] Platelet mean volume [Entitic volume] in Blood by Automated count 9.5-13.5 [facility] Platelets Auto (Bld) [#/Vol] on 08-28-2024 Platelets (Bld) [#/Vol] Platelets [#/volume] in Blood by Automated count 150-450 [facility] RBC Auto (Bld) [#/Vol]on RBC (Bld) [#/Vol] Erythrocytes [#/volu me] in Blood by Automated count Low 4.20-5.40 [facility] Serum or plasma anion gap de terminationon 08-28-2024 Anion gap [Moles/Vol] Serum or plasma an ion gap determination [facility] Urine microalbumin/creatinin e mass ratioon 08-28-2024 Albumin/Creatinine DL <= 20 mg/L (U) [Mass ratio] Urine microalbumin/creatinine mass ratio High 0.0-29.9 [facility] Comment on above: NO MICROALBUMINURIA 0-29 MG/GCLINICAL MICROALBUMINURIA 30-300 MG/GMACROALBUMINURIA >300 MG/G Urine protein/creatinine rat ioon 08-28-2024 Protein/Creatinine (U) [Ratio] Urine protein/creatinine ratio [facility] MLR HEMOGLOBIN A1Con 08-08- 024 Glucose [Mass/Vol] 243 mg/dL [facility] HbA1c (Bld) [Mass fraction] 10.1 % High 4.5 - 6.2 % [facility] Comment on above: ADA RECOMMENDED LIMI T 4.0 - 6.0 ADA THERAPEUTIC TARGET < 7.0 ACTION SUGGESTED > 7.0 Interpretation and review of laboratory results Abnormal [facility] 36on 07-05-2024 36 Received C9 approval . Pt called and scheduled. [employer]isle[employer] notified. [facility] [place] 06-26-2024 KIARAN Telephone (ANDREW) ----- AISLINN WHEELER ([id number]) 1960 F Date Time Provider Department 06/26/24 ADAMA VELASCO During your visit today, we recorded the following information about you: Adama Velasco RN 06/26/2024 9:57 AM Addendum Called and [...] locally Cystatin C and CMP sent to [facility] ( ; fx [phone]) and asked her to go to lab [...] OCCA - Fully Assessed Reason for Visit: Label Remover - Other [3602] Returning Patient's Call [408] [...] Status:Closed by ADAMA VELASCO on 06/26/24 Normal [facility] 36on 05-03-2024 36 Called to schedule p t with 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 LVM to call office back to schedule. Please advise pt to bring disc with imaging on it to her appt or advise brief writer where imaging had been completed. Thank You Normal [facility] Telephoneon 05-03-2024 Telephone [id number] Fernando Wheeler 1960 F Date Provider Department Center 05/03/2024 Abimbola8-HANNA WHEELER [facility] SURG Second Fl No family history on file Normal [facility] BLOOD CULTURE 1on 05-01-2024 BLOOD CULTURE 1 Blood Culture 1 NG5D NO GROWTH AT 5 DAYS.^NO GROWTH AT 5 DAYS. [facility] BLOOD CULTURE 2on 05-01-2024 BLOOD CULTURE 2 Blood Culture 2 NG5D NO GROWTH AT 5 DAYS.^NO GROWTH AT 5 DAYS. [facility] CNOVon 05-01-2024 CNOV Office Visit (UROLMN ) ----- AISLINN WHEELER ([id number]) 1960 F Date Time Provider Department 05/01/24 10:00 AM JUANITO BARNARD During your visit today, we recorded the following information about you: Pulse Blood pressure 74/minute 173/96 Juanito Barnard MD 05/01/2024 12:12 PM Signed [facility] UROLOGY NEW PATIENT CLINIC NOTE SERVICE DATE: 05/01/2024 NAME: Aislinn Wheeler REFERRED BY: No referring provider defined for this encounter. Consultation requested by Dr. Espinosa for an opinion regarding urinary incontinence. My [...] SCI, traumatic injuries, or hx MS. No numbness/tingling/weaknes s. PSH: robotic partial nx (06/2023), hysterectomy for [...] calculate BMI (more content not included)... Normal [facility] No [facility]FLEX MICROSCOP ICon 05-01-2024 Bilirubin Ql (U) Negative Negative [facility] Clarity (Unsp spec) Clear Clear [facility] Color (U) Yellow Yellow [facility] Glucose Test strip (U) [Mass/Vol] 1+ Abnormal Negative [facility] Hemoglobin Ql (U) Negative Negative [facility] Interpretation and review of laboratory results Abnormal [facility] Ketones Ql (U) Negative Negative [facility] Leukocyte esterase Test strip Ql (U) Trace Abnormal Negative [facility] Nitrite Ql (U) Negative Negative [facility] pH (U) 5.5 [pH] NINF - 8.5 [facility] Protein (U) [Mass/Vol] 2+ Abnormal Negative [facility] Specific gravity (U) [Rel density] 1.010 1.005 - 1.030 [facility] Urobilinogen Ql (U) 0.2 EU/dL 0.2-1.0 EU/dL [facility] This test was develo ped and its performance characteristics determined by [facility]'s [facility] [place] ([facility]). It has not been cleared or approved by the FDA. [facility] is regulated under CLIA as qualified to perform high-complexity testing. This test is used for clinical purposes. It should not be regarded as investigational or for research. [facility] Bilirubin Ql (U) Negative Normal Negative [facility] Comment on above: Order Comment: Speci men Type: URINE SPECIMENOrdering Facility: [facility] Address: [address] [place] [address] Performed By: #### L [id number] ####[facility] [id number] [place] [address] [place] Clarity (Unsp spec) Clear Normal Clear [facility] Comment on above: Order Comment: Speci men Type: URINE SPECIMENOrdering Facility: [facility] Address: [address] [place] [address] Performed By: #### L [id number] ####[facility] [id number] [place] [address] [place] Color (U) Yellow Normal Yellow [facility] Comment on above: Order Comment: Speci men Type: URINE SPECIMENOrdering Facility: [facility] Address: [address] [place] [address] Performed By: #### L [id number] ####[facility]CL[facility] [id number] [place] [address] [place] Glucose Test strip (U) [Mass/Vol] 1+ Abnormal Negative [facility] Comment on above: Order Comment: Speci men Type: URINE SPECIMENOrdering Facility: [facility] Address: [address] [place] [address] Performed By: #### L [id number] ####[facility] [id number] [place] [address] [place] Hemoglobin Ql (U) Negative Normal Negative [facility] Comment on above: Order Comment: Speci men Type: URINE SPECIMENOrdering Facility: [facility] Address: [address] [place] [address] Performed By: #### L [id number] ####[facility] [id number] [place] [address] [place] Ketones Ql (U) Negative Normal Negative [facility] Comment on above: Order Comment: Speci men Type: URINE SPECIMENOrdering Facility: [facility] Address: [address] [place] [address] Performed By: #### L [id number] ####[facility]CL[facility] [id number] [place] [address] [place] Leukocyte esterase Test strip Ql (U) Trace Abnormal Negative [facility] Comment on above: Order Comment: Speci men Type: URINE SPECIMENOrdering Facility: [facility] Address: [address] [place] [address] Performed By: #### L [id number] ####[facility]CL[facility] [id number] [place] [address] [place] Nitrite Ql (U) Negative Normal Negative [facility] Comment on above: Order Comment: Speci men Type: URINE SPECIMENOrdering Facility: [facility] Address: [address] [place] [address] Performed By: #### L [id number] ####[facility]CLIA [id number] [place] [address] [place] pH (U) 5.5 [pH] Normal <8.5 [facility] Comment on above: Order Comment: Speci men Type: URINE SPECIMENOrdering Facility: [facility] Address: [address] [place] [address] Performed By: #### L [id number] ####[facility] [id number] [place] [address] [place] Protein (U) [Mass/Vol] 2+ Abnormal Negative [facility] Comment on above: Order Comment: Speci men Type: URINE SPECIMENOrdering Facility: [facility] Address: [address] [place] [address] Performed By: #### L [id number] ####[facility]CLIA [id number] [place] [address] [place] Specific gravity (U) [Rel density] 1.010 Normal 1.005-1.030 [facility] Comment on above: Order Comment: Speci men Type: URINE SPECIMENOrdering Facility: [facility] Address: [address] [place] [address] Performed By: #### L [id number] ####[facility] LABCLIA [id number] [address] [place] Urobilinogen Ql (U) 0.2 EU/dL Normal 0.2-1.0 EU/dL [facility] Comment on above: Order Comment: Speci men Type: URINE SPECIMENOrdering Facility: [facility] Address: [address] [place] [address] Performed By: #### L [id number] ####[facility] LABCLIA [id number] [address] [place] URINE CULTURE, ROUTINEon Bacteria [...] Bacteria identified Cx Nom (U) Performed at: - [facility] Bacteria identified Cx Nom (U) [address] [place], [place] [id number] [facility] Bacteria identified Cx Nom (U) Hr Payroll Coordinator: Chris Luna PhD, Phone: [phone] [facility] Drugs of abuse panel Screen (U)on 04-24-2024 Control Substance Panel, Urine SEE COMMENTS 04/28/2024 10:47 AM [facility] Comment on above: Result Comment: NOTE Test Result Flag Unit RefValue -- Controlled Substance Monitoring, U List Patient's Current HYDROCODONE Medications ADDITIONAL INFORMATION Accuracy and completeness of declared medications on reports solely dependent on information submitted by client. Creatinine, U 51.0 mg/dL Specific [place] 1.010 pH 5.4 Oxidants Negative -- REFERENCE [...] Not Detected ng/mL Cutoff: 25 Tylenol 3 Xnvffqm-7-eiuc- Not Detected ng/mL Cutoff: 100 glucuronide Metabolite of codeine Morphine Not Detected ng/mL Cutoff: 25 Avinza, Marium, MS Contin; Also a minor metabolite (10%) of codeine and can be seen in low concentrations (<2,000 ng/mL) with poppy seed ingestion. Tvabjubx-1-figs- Not Detected ng/mL Cutoff: 100 glucuronide Metabolite of morphine 6-monoacetylmorphine Not Detected ng/mL Cutoff: 25 Metabolite of heroin Hydrocodone Present A ng/mL Cutoff: 25 Lortab, [place], Vicodin; Also a very minor metabolite of codeine and impurity (<1%) of oxycodone. Norhydrocodone Present A ng/mL Cutoff: 25 Metabolite of hydrocodone Dihydrocodeine Present A ng/mL Cutoff: 25 Metabolite of hydrocodone Hydromorphone Not Detected ng/mL Cutoff: 25 Dilaudid, Exalgo; Also a metabolite of hydrocodone and a minor (<5%) metabolite of morphine. Uxqycdgbwdymj-5-xsvw- Present A ng/mL Cutoff: 100 glucuronide Metabolite of hydromorphone Oxycodone Not Detected ng/mL Cutoff: 25 Endocet, Percocet, Oxycontin Noroxycodone Not Detected ng/mL Cutoff: 25 Metabolite of oxycodone Oxymorphone Not Detected ng/mL Cutoff: 25 Numorphan, Opana; Also a metabolite of oxycodone. Uzorfbqzfml-5-nctt- Not Detected ng/mL Cutoff: 100 glucuronide Metabolite [...] Naloxone Not Detected ng/mL Cutoff: 25 Narcan Bchxwzin-1-knaf- Not Detected ng/mL Cutoff: 100 glucuronide Metabolite [...] of its metabolites (norhydrocodone and dihydrocodeine), and vvcvnlzflobry-1-wkiq-glucuronide (metabolite of hydromorphone). Suspect use of hydrocodone and/or hydromorphone within the past three days. Trace amounts of hydrocodone can also be found as an impurity in hydromorphone. ADDITIONAL INFORMATION This test was developed and its performance characteristics determined by [facility] in a manner consistent with CLIA requirements. [...] included)... CNNURSEon 03-29-2024 CNNURSE Nurse Visit (UROSMN) ----- AISLINN WHEELER ([id number]) 1960 F Date Time Provider Department 03/29/24 3:00 PM [facility] UROSMN During your visit today, we recorded the following information about you: Lorie Burrows RN 03/29/2024 2:18 PM Addendum [facility] URODYNAMICS LAB [...] allergy: No Females- Is patient : No Brief Writer offered:Patient declines B/O UA: Yes, Negative for [...] states an understanding of instructions given. Carmenza Espinosa MD 04/02/2024 11:52 AM Addendum [facility] CENTER FOR [...] Will refer to consider bladder augmentation. Carmenza Espinosa MD Voiding cystourethrogram- Voiding Cystourethrogram Patient Name - Aislinn Wheeler Date - April 02, 2024 Imaging exam - VCUG Number of images saved - 11 Patient position - Sitting Radiologic Findings: A quality improvement specialist radiograph was obtained. The bony and soft tissue structures are within normal. 147 ccs contrast were used to fill the bladder. The bladder outline is irregular/trabeculated and abnormal shaped appearing. There is no ureteral reflux. During the voiding phase there is abnormal bladder neck opening and urethra is not visualized. Bladder emptying is not visualized Read (more content not included)... Normal [facility] CNOVon 03-26-2024 CNOV Office Visit (UROLAV ) ----- AISLINN WHEELER ([id number]) 1960 F Date Time Provider Department 03/26/24 11:00 AM CARMENZA ESPINOSA UROLAV During your visit today, we recorded the following information about you: Weight 56.7 kg Maria Teresa Henry MA 03/26/2024 11:54 AM Signed Pt voided upon arrival. PVR = 205 ml Via bladder scan. Pt was doing ISC, but was told she could stop. ====== Pt instructed to give a urine specimen. 2ND Repeat PVR PVR = 135 ml Via bladder scan. Carmenza Espinosa MD 03/26/2024 11:54 AM Signed [facility] ESTABLISHED UROLOGY VISIT CENTER FOR [...] her bladder. Had bladder botox injections at [facility] about 3 mo ago with no improvement. [...] Assessed 03/26/2024 PHYSICAL EXAM: Patient declined a washer machine General: No acute distress, well appearing : [...] Signed INFOR (more content not included)... Normal [facility] UA DIP, URINE (POC)on 2023 BILIRUBIN UA (POCT) Negative Negative [facility] CLARITY UA (POCT) [facility] COLOR UA (POCT) Light yellow [facility] GLUCOSE UA (POCT) Negative Negative mg/dL [facility] Hemoglobin Ql (U) Trace-intact Abnormal Negative [facility] Interpretation and review of laboratory results Abnormal [facility] KETONE UA (POCT) Negative Negative mg/dL [facility] LEUKOCYTES UA (POCT) Moderate Abnormal Negative [facility] NITRITE UA (POCT) Negative Negative [facility] PH UA (POCT) 6.0 4.5 - 8.0 [facility] Protein Ql (U) 100 mg/dL Abnormal Negative [facility] SPECIFIC GRAVITY UA (POCT) 1.020 1.005 - 1.030 [facility] UROBILINOGEN UA (POCT) 0.2 Normal E.U./dL [facility] Location:[facility], [address], [place], [place], [address] [facility] POINT OF CARE [facility] Glucose Glucometer (BldC) [M ass/Vol]on 03-15-2024 Glucose [Mass/Vol] 164 mg/dL High 65-99 [facility] CNPNon 02-26-2024 CNPN Telephone (URR) ----- AISLINN WHEELER ([id number]) 1960 F Date Time Provider Department 02/26/24 FLAVIO COON [facility] During your visit today, we recorded the following information about you: Flavio Coon, RN 02/26/2024 2:46 PM Signed Pt LVM asking for her CT scan results. Noted in pt chart was an unread message from regarding the most recent CT scan. LVM for pt and let her know about [employer] message and provided number if pt has any further questions. Allergies As of Date: 02/26/2024 Noted Allergy Reaction LATEX 02/05/2020 2 - Rash Comments: Added based on information entered during case entry, please review and add reactions, type, and severity as needed Date Reviewed: 01/12/2024 Reviewed by: Sanjana Ross MA - Fully Assessed Prescriptions as of [...] Encounter Status:Closed by FLAVIO COON on 02/26/24 [employer] 02-12-2024 [facility]) ----- AISLINN WHEELER ([id number]) 1960 F Date Time Provider Department 02/12/24 VONNIE WILDER [facility] During your visit today, we recorded the [...] needed Date Reviewed: 01/12/2024 Reviewed by: Sanjana Ross MA - Fully Assessed Reason for Visit: [...] Status:Closed by VONNIE WILDER on 02/12/[address] [facility] [address] Kidney WO and W contrast IVOrdered By: Ccf Provider on 02-02-2024 Interpretation and review of laboratory results Abnormal [facility] Radiology Result ACTIONABLE Abnormal [facility] Comment on above: This report contains [...] provider for the next steps. [facility] CT Kidney WO and W [...] be communicated with the ordering provider via [employer] staff message or phone message by Imaging [...] any questions regarding this interpretation, please call [phone]. If you are unable to reach us at the number above, please feel free to contact [facility] at [phone]. DIVISION OF RADIOLOGY * * *Final Report* [...] No additional findings. DIVISION OF RADIOLOGY Provider, [facility] - 02/02/2024 * * *Final Report* * [...] be communicated with the ordering provider via [employer] staff message or phone message by Imaging [...] any questions regarding this interpretation, please call [phone]. If you are unable to reach us at the number above, please feel free to contact [facility] eRadiology at [phone]. [facility] CREATININE BLDOrdered By: James Murguia on 02-01-2024 Creatinine [Mass/Vol] 1.78 mg/dL High 0.58 - 0.96 mg/dL [facility] GFR/1.73 sq M.predicted among non-blacks MDRD (S/P/Bld) [Vol rate/Area] 31 mL/min/{1.73_m2} Low - PINF [facility] Comment on above: Estimated Glomerular [...] Interpretation and review of laboratory results Abnormal [facility] CREATININE BLDon 02-01-2024 Creatinine [Mass/Vol] 1.78 mg/dL High 0.58-0.96 [facility] Comment on above: Order Comment: Speci men Type: BLOOD SPECIMENOrdering Facility: [facility] Address: [address] [place] [address] Performed By: #### C RET1 ####[facility] LABCLIA [id number] [place] [address] Creatinine and Glomerular filtration rate.predicted panel (S/P/Bld) 31 mL/min/1.73m??? Low >=60 [facility] Comment on above: Order Comment: Speci men Type: BLOOD SPECIMENOrdering Facility: [facility] Address: [address] [place] [id number] Result Comment: Donna mated Glomerular Filtration Rate [...] actual GFR. Performed By: #### C RET1 ####[facility] LABCLIA [id number] [place] [address] CT Kidney WO and W contrast Mirna 02-01-2024 Radiology Study observation (narrative) [facility] CT UROGRAM WO/W IVCONon 01-19 [...] be communicated with the ordering provider via [employer] staff message or phone message by Imaging [...] any questions regarding this interpretation, please call [phone]. If you are unable to reach us at the number above, please feel free to contact [facility] eRadiology at [phone]. [id number] ACTIONABLE Invalid Interpretation Code [facility] CNOVon 01-12-2024 CNOV Office Visit (URFMOB ) ----- AISLINN WHEELER ([id number]) 1960 F Date Time Provider Department 01/12/24 1:50 PM TAURUS BALLARD URFREDDIE During your visit today, we recorded the following information about you: Pulse Blood pressure 75/minute 142/69 Taurus Ballard MD 01/12/2024 2:43 PM Signed [facility] FOLLOW-UP PATIENT HISTORY AND [...] stress urinary incontinence. Will refer to Dr. Espinosa PLAN: CIC 1 time per day with 12f catheter for urinary retention CT urogram Will refer to Dr. Tamanna Ruiz APRN.WEB METHODS DEVELOPER Attending Note I have personally performed a [...] her ki (more content not included)... Normal [facility] UA DIP, URINE (POC)on 2023 BILIRUBIN UA (POCT) Negative Negative [facility] CLARITY UA (POCT) Clear [facility] COLOR UA (POCT) Yellow [facility] GLUCOSE UA (POCT) 100 mg/dL Abnormal Negative [facility] Hemoglobin Ql (U) Trace-intact Abnormal Negative [facility] Interpretation and review of laboratory results Abnormal [facility] KETONE UA (POCT) Negative Negative mg/dL [facility] LEUKOCYTES UA (POCT) Small Abnormal Negative [facility] NITRITE UA (POCT) Negative Negative [facility] PH UA (POCT) 5.5 4.5 - 8.0 [facility] Protein Ql (U) 100 mg/dL Abnormal Negative [facility] SPECIFIC GRAVITY UA (POCT) 1.015 1.005 - 1.030 [facility] UROBILINOGEN UA (POCT) 0.2 Normal E.U./dL [facility] Location:[facility], [address], [place], [address] [place] [address] POINT OF CARE [facility] ED Note-Physicianon 10-30-19 ED Note-Physician [id number]#1.00TIFF Normal [facility] Lab Reportson 10-30-2023 Lab Reports [id number]#1.00TIFF Normal [facility] Lab Reports [id number]#1.00TIFF Normal [facility] Urology Office/Clinic Noteon 10-26-2023 Urology Office/Clinic Note Chief Complaint S/P to Cysto with Botox HPI Staff KML pt. Here for f/u to Botox 100u done 05/22/23. R/s'd appt from 06/28/23. Previous dx: renal cyst, mixed incontinence, feeling of incomplete bladder emptying, glucosuria. Pt was referred to Dr. Ballard at [facility] for evaluation of robotic left cyst [...] Assessment/Plan 1. 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 BURKE [...] is confusing bc review of [facility]'s op report shows completely normal events (lidocaine instilled normally, 10 injections of 2ml each) so it's unclear if pt received full 100units or not. Pt called 06/08/23 c/o worsening leakage after Botox. PVR was 174 cc (compared to 142cc prior to botox). KML recommended to start CIC 3x/day for residual, timed voids q2hr, and tight DM control. Pt was in [facility] ER 06/19 and treated for E [...] kidney measuri (more content not included)... Normal [facility] Comment on above: Result Comment: [...] Contact prescribing physician if questions or concerns acetaminophen-hydrocodone (acetaminophen-hydrocodon e 325 mg-7.5 mg oral tablet) amlodipine (amLODIPine [...] PA-C, EMELINA When: Where: [address] [place] [address] Medications What How Much When Instructions Unchanged acetaminophen-hydrocodone (acetaminophen-hydrocodon e 325 mg-7.5 mg oral tablet) Contact prescribing [...] including vitamins, herbs, eye drops, creams, and xxut-crc-zhgjgpe medicines. ? Any problems you or family [...] no (more content not included)... Normal [facility] Patient Educationon 10-25-19 24 Patient Education Urology [...] including vitamins, herbs, eye drops, creams, and vgko-uan-lzfbtty medicines. ? Any problems you or family [...] tells you to take them. ? Taking rmdk-dkk-mrbrwlh medicines, vitamins, herbs, and supplements. General instructions [...] these instructions at home: Medicines ? Take cfbj-xyo-vlbwxiy and prescription medicines only as told by [...] health ca (more content not included)... Normal [facility]FVPRAD[facility] ----- AISLINN WHEELER ([id number]) 1960 F Date Time Provider Department 09/27/23 DREW ALSTON FVPRAD During your visit today, we recorded the following information about you: Drew Alston, Research Coordinator 09/27/2023 2:33 PM Signed IRB# [id number]: Vascular events in patients undergoing same-day nonCardiac surgery - [facility] PI: Mary Rojas MD, LETY, FASA. Outcomes Research Department. [facility] [place]. [facility]. Aislinn Wheeler was unavailable at the listed phone number. We will attempt to contact the patient through [employer] [facility] message. Drew Esqueda Research Coordinator Research Coordinator Allergies As of Date: 09/27/2023 Noted Allergy Reaction LATEX 02/05/2020 2 - Rash Comments: Added based on information entered during case entry, please review and add reactions, type, and severity as needed Date Reviewed: 09/03/2023 Reviewed by: Chuck Kirk, REY - Fully Assessed Reason for Visit: Research F/U [828] Prescriptions as of 09/27/2023 - pregabalin (LYRICA) [...] hematuria [N39.*08/31/2023 09/04/2023 Encounter Status:Closed by DREW ALSTON on 09/27/23 [employer] 09-26-2023 CNPN Telephone (FVPRAD) ----- AISLINN WHEELER ([id number]) 1960 F Date Time Provider Department 09/26/23 DREW ALSTON FVPRAD During your visit today, we recorded the following information about you: Drew Alston, Research Coordinator 09/26/2023 3:32 PM Signed IRB# [id number]: Vascular events in patients undergoing same-day nonCardiac surgery - [facility] PI: Mary Rojas MD, LETY, FASA. Outcomes Research Department. [facility] [place]. [facility]. Aislinn Wheeler was unavailable at [...] hematuria [N39.*08/31/2023 09/04/2023 Encounter Status:Closed by DREW ALSTON on 09/26/23 [facility] CNDSon 09-04-2023 [facility] HNO ID: [id number] Author: ANTHONY BARROW MD Service: Hospital Medicine [...] Provider Department Center 10/06/2023 1:00 PM US [facility] BRITTANIE [place] [facility] Brittanie 10/06/2023 2:00 PM LAB [facility] [place] [facility] Brittanie 10/11/2023 1:50 PM Tauurs Ballard MD [facility] Mol ALLERGIES Allergen Reactions Latex Rash [...] U-100 INSULIN SUBCUTANEO (more content not included)... [facility] ALLIED HEALTHon 09-03-2023 ALLIED HEALTH HNO ID: [id number] Author: NICOL MILLIGAN RT(R) Service: Radiology Author [...] RT Michael(R) September 03, 2023 2:57 PM [facility] Basic metabolic 2000 panelon 09-03-2023 Anion gap [Moles/Vol] 10 mmol/L Normal 9-18 [facility] Comment on above: Order Comment: Speci men Type: BLOOD SPECIMEN [facility] Address: [address] [place] [address] Performed By: #### 2 4321-2 #### [facility] CLIA [id number] [place] [address] [place] Calcium [Mass/Vol] 8.8 mg/dL Normal 8.5-10.2 [facility] Comment on above: Order Comment: Speci men Type: BLOOD SPECIMEN [facility] Address: [address] [place] [address] Performed By: #### 2 4321-2 #### [facility] CLIA [id number] [address] [place] [address] [place] Chloride [Moles/Vol] 103 mmol/L Normal 97-105 [facility] Comment on above: Order Comment: Speci men Type: BLOOD SPECIMEN [facility] Address: [address] [place] [address] Performed By: #### 2 4321-2 #### [facility] CLIA [id number] [address] [place] [address] [place] CO2 [Moles/Vol] 23 mmol/L Normal 22-30 [facility] Comment on above: Order Comment: Speci men Type: BLOOD SPECIMEN [facility] Address: [address] [place] [address] Performed By: #### 2 4321-2 #### [facility] CLIA [id number] [address] [place] [address] [place] Creatinine [Mass/Vol] 1.29 mg/dL High 0.58-0.96 [facility] Comment on above: Order Comment: Speci men Type: BLOOD SPECIMEN [facility] Address: [address] [place] [address] Performed By: #### 2 4321-2 #### [facility] CLIA [id number] [address] [place] [address] [place] Creatinine and Glomerular filtration rate.predicted panel (S/P/Bld) 46 mL/min/1.73m??? Low >=60 [facility] Comment on above: Order Comment: Speci men Type: BLOOD SPECIMEN [facility] Address: [address] [place] [address] Result Comment: Donna mated Glomerular Filtration Rate [...] GFR. Performed By: #### 2 4321-2 #### [facility] CLIA [id number] [address] [place] [address] [place] Glucose [Mass/Vol] 123 mg/dL High 74-99 [facility] Comment on above: Order Comment: [place] Type: BLOOD SPECIMEN [facility]: [facility] Address: [address] [place] [address] Result Comment: The [place] Diabetes Association (ADA) provides guidance for cutoff [...] Standards of Medical Care in Diabetes 2016, [place] Diabetes Association. Diabetes Care. 2016.39(Suppl 1). Performed By: #### 2 4321-2 #### [facility] CLIA [id number] [address] [place] [address] [place] Potassium [Moles/Vol] 5.0 mmol/L Normal 3.7-5.1 [facility] Comment on above: Order Comment: [place] Type: BLOOD SPECIMEN [facility] Address: [address] [place] [address] Performed By: #### 2 4321-2 #### [facility] CLIA [id number] [address] [place] [address] [place] Sodium [Moles/Vol] 136 mmol/L Normal 136-144 [facility] Comment on above: Order Comment: [place] Type: BLOOD SPECIMEN [facility] Address: [address] [place] [id number] Performed By: #### 2 4321-2 #### [facility] CLIA [id number] [address] [place] [address] [place] Urea nitrogen [Mass/Vol] 22 mg/dL High 7-21 [facility] Comment on above: Order Comment: Speci men Type: BLOOD SPECIMEN [facility] Address: [address] [place] [address] Performed By: #### 2 4321-2 #### [facility] CLIA [id number] [address] [place] [address] [place] CBC panel Auto (Bld)on 09-03 Erythrocyte distribution width (RBC) [Ratio] 14.6 % Normal 11.5-15.0 [facility] Comment on above: Order Comment: Speci men Type: BLOOD SPECIMEN [facility] Address: [address] [place] [address] Performed By: #### [place], [address]-1 #### [facility] CLIA [id number] [address] [place] [address] [place] Hematocrit (Bld) [Volume fraction] 28.7 % Low 36.0-46.0 [facility] Comment on above: Order Comment: Speci men Type: BLOOD SPECIMEN [facility] Address: [address] [place] [address] Performed By: #### B HB, 66112-1 #### [facility] CLIA [id number] [address] [place] [address] [place] Hemoglobin (Bld) [Mass/Vol] 8.9 g/dL Low 11.5-15.5 [facility] Comment on above: Order Comment: Speci men Type: BLOOD SPECIMEN [facility] Address: [address] [place] [address] Performed By: #### B HB, 40536-5 #### [facility] CLIA [id number] [address] [place] [address] [place] MCH (RBC) [Entitic mass] 24.1 pg Low 26.0-34.0 [facility] Comment on above: Order Comment: Speci men Type: BLOOD SPECIMEN Ordering Facility: [facility] Address: [address] [place] [address] Performed By: #### B HB, #### [facility] CLIA [id number] [address] [place] [address] [place] MCHC (RBC) [Mass/Vol] 31.0 g/dL Normal 30.5-36.0 [facility] Comment on above: Order Comment: Speci men Type: BLOOD SPECIMEN Ordering Facility: [facility] Address: [address] [place] [address] Performed By: #### B HB, #### [facility] CLIA [id number] [address] [place] [address] [place] MCV (RBC) [Entitic vol] 77.6 fL Low 80.0-100.0 [facility] Comment on above: Order Comment: Speci men Type: BLOOD SPECIMEN Ordering Facility: [facility] Address: [address] [place] [address] Performed By: #### B HB, #### [facility] CLIA [id number] [address] [place] [address] [place] Nucleated RBC (Bld) [#/Vol] 10*3/uL Normal <0.01 [facility] Comment on above: Order Comment: Speci men Type: BLOOD SPECIMEN Ordering Facility: [facility] Address: [address] [place] [address] Performed By: #### B HB, #### [facility] CLIA [id number] [address] [place] [address] [place] Platelet mean volume (Bld) [Entitic vol] 10.8 fL Normal 9.0-12.7 [facility] Comment on above: Order Comment: Speci men Type: BLOOD SPECIMEN Ordering Facility: [facility] Address: [address] [place] [address] Performed By: #### B HB, #### [facility] CLIA [id number] [address] [place] [address] [place] Platelets (Bld) [#/Vol] 334 10*3/uL Normal 150-400 [facility] Comment on above: Order Comment: Simonai reinier Type: BLOOD SPECIMEN Ordering Facility: [facility] Address: [address] [place] [address] Performed By: #### B HB, 37138-8 #### [facility] CLIA [id number] [address] [place] [address] [place] RBC (Bld) [#/Vol] 3.70 10*6/uL Low 3.90-5.20 [facility] Comment on above: Order Comment: Simonai men Type: BLOOD SPECIMEN Ordering Facility: [facility] Address: [address] [place] [address] Performed By: #### B HB, 45760-8 #### [facility] CLIA [id number] [address] [place] [address] [place] WBC (Bld) [#/Vol] 6.44 10*3/uL Normal 3.70-11.00 [facility] Comment on above: Order Comment: Simonai reinier Type: BLOOD SPECIMEN Ordering Facility: [facility] Address: [address] [place] [address] Performed By: #### B HB, 87364-1 #### [facility] CLIA [id number] [address] [place], [place] [address] [place] FOOT WO [...] NO EVIDENCE OF OSTEOMYELITIS ON THIS EXAMINATION. Remote Sensing Analyst: PSCB Transcribe Date/Time: Sep 03 2023 11:22P Dictated by : FINESSE BUTLER MD This examination was interpreted and the report reviewed and electronically signed by: FINESSE BUTLER MD on Sep 03 2023 11:27PM EST [id number] Normal [facility] Basic metabolic 2000 panelon 09-02-2023 Anion gap [Moles/Vol] 9 mmol/L Normal 9-18 [facility] Comment on above: Order Comment: Speci men Type: BLOOD SPECIMEN Ordering Facility: [facility] Address: [address] [place] [address] Performed By: #### B HB, 60377-1 #### [facility] CLIA [id number] [address] [place] [address] [place] Calcium [Mass/Vol] 8.1 mg/dL Low 8.5-10.2 [facility] Comment on above: Order Comment: Speci men Type: BLOOD SPECIMEN Ordering Facility: [facility] Address: [address] [place] [address] Performed By: #### B HB, 97351-2 #### [facility] CLIA [id number] [address] [place] [address] [place] Chloride [Moles/Vol] 106 mmol/L High 97-105 [facility] Comment on above: Order Comment: Speci men Type: BLOOD SPECIMEN Ordering Facility: [facility] Address: [address] [place] [address] Performed By: #### B HB, 96512-3 #### [facility] CLIA [id number] [address] [place] [address] [place] CO2 [Moles/Vol] 22 mmol/L Normal 22-30 [facility] Comment on above: Order Comment: [place] Type: BLOOD SPECIMEN Ordering Facility: [facility] Address: [address] [place] [address] Performed By: #### B HB, 20118-0 #### [facility] CLIA [id number] [address] [place] [address] [place] Creatinine [Mass/Vol] 1.30 mg/dL High 0.58-0.96 [facility] Comment on above: Order Comment: [place] Type: BLOOD SPECIMEN Ordering Facility: [facility] Address: [address] [place] [address] Performed By: #### B HB, 64972-7 #### [facility] CLIA [id number] [place] [address] [place] Creatinine and Glomerular filtration rate.predicted panel (S/P/Bld) 46 mL/min/1.73m??? Low >=60 [facility] Comment on above: Order Comment: [place] Type: BLOOD SPECIMEN Ordering Facility: [facility] Address: [address] [place] [address] Result Comment: Donna mated Glomerular Filtration Rate [...] actual GFR. Performed By: #### B HB, 54304-6 #### [facility] CLIA [id number] [place] [address] [place] Glucose [Mass/Vol] 192 mg/dL High 74-99 [facility] Comment on above: Order Comment: [place] Type: BLOOD SPECIMEN Ordering Facility: [facility] Address: [address] [place] [address] Result Comment: The [place] [employer] (ADA) provides guidance for cutoff [...] Standards of Medical Care in Diabetes 2016, [place] [employer]. Diabetes Care. 2016.39(Suppl 1). Performed By: #### B HB, 98581-3 #### [facility] CLIA [id number] [address] [place] [address] [place] Potassium [Moles/Vol] 4.9 mmol/L Normal 3.7-5.1 [facility] Comment on above: Order Comment: [place] Type: BLOOD SPECIMEN Ordering Facility: [facility] Address: [address] [place] [address] Performed By: #### B HB, 37358-3 #### [facility] CLIA [id number] [address] [place] [address] [place] Sodium [Moles/Vol] 137 mmol/L Normal 136-144 [facility] Comment on above: Order Comment: [place] Type: BLOOD SPECIMEN Ordering Facility: [facility] Address: [address] [place] [address] Performed By: #### B HB, 68737-8 #### [facility] CLIA [id number] [address] [place] [address] [place] Urea nitrogen [Mass/Vol] 17 mg/dL Normal 7-21 [facility] Comment on above: Order Comment: [place] Type: BLOOD SPECIMEN Ordering Facility: [facility] Address: [address] [place] [address] Performed By: #### B HB, 02304-6 #### [facility] CLIA [id number] [address] [place] [address] [place] CBC panel Auto (Bld)on 09-02 Erythrocyte distribution width (RBC) [Ratio] 14.6 % Normal 11.5-15.0 [facility] Comment on above: Order Comment: Speci men Type: BLOOD SPECIMEN Ordering Facility: [facility] Address: [address] [place] [address] Performed By: #### B HB, #### [facility] CLIA [id number] [address] [place] [address] [place] Hematocrit (Bld) [Volume fraction] 28.4 % Low 36.0-46.0 [facility] Comment on above: Order Comment: Speci men Type: BLOOD SPECIMEN Ordering Facility: [facility] Address: [address] [place] [address] Performed By: #### B HB, #### [facility] CLIA [id number] [address] [place] [address] [place] Hemoglobin (Bld) [Mass/Vol] 8.9 g/dL Low 11.5-15.5 [facility] Comment on above: Order Comment: Speci men Type: BLOOD SPECIMEN Ordering Facility: [facility] Address: [address] [place] [address] Performed By: #### B HB, #### [facility] CLIA [id number] [address] [place] [address] MCH (RBC) [Entitic mass] 24.2 pg Low 26.0-34.0 [facility] Comment on above: Order Comment: Speci men Type: BLOOD SPECIMEN Ordering Facility: [facility] Address: [address] [place] [address] Performed By: #### B HB, 12669-9 #### [facility] CLIA [id number] [address] [place] [address] [place] MCHC (RBC) [Mass/Vol] 31.3 g/dL Normal 30.5-36.0 [facility] Comment on above: Order Comment: Speci men Type: BLOOD SPECIMEN Ordering Facility: [facility] Address: [address] [place] [address] Performed By: #### B HB, 08608-9 #### [facility] CLIA [id number] [address] [place] [address] [place] MCV (RBC) [Entitic vol] 77.2 fL Low 80.0-100.0 [facility] Comment on above: Order Comment: Speci men Type: BLOOD SPECIMEN Ordering Facility: [facility] Address: [address] [place] [address] Performed By: #### B HB, #### [facility] CLIA [id number] [address] [place] [address] [place] Nucleated RBC (Bld) [#/Vol] 10*3/uL Normal <0.01 [facility] Comment on above: Order Comment: Speci men Type: BLOOD SPECIMEN Ordering Facility: [facility] Address: [address] [place] [address] Performed By: #### B HB, #### [facility] CLIA [id number] [address] [place] [address] [place] Platelet mean volume (Bld) [Entitic vol] 10.4 fL Normal 9.0-12.7 [facility] Comment on above: Order Comment: Speci men Type: BLOOD SPECIMEN Ordering Facility: [facility] Address: [address] [place] [address] Performed By: #### B HB, #### [facility] CLIA [id number] [address] [place] [address] [place] Platelets (Bld) [#/Vol] 285 10*3/uL Normal 150-400 [facility] Comment on above: Order Comment: Speci men Type: BLOOD SPECIMEN Ordering Facility: [facility] Address: [address] [place] [address] Performed By: #### B HB, #### [facility] CLIA [id number] [address] [place] [address] [place] RBC (Bld) [#/Vol] 3.68 10*6/uL Low 3.90-5.20 [facility] Comment on above: Order Comment: Speci men Type: BLOOD SPECIMEN Ordering Facility: [facility] Address: [address] [place] [address] Performed By: #### B HB, #### [facility] CLIA [id number] [place] [address] [place] WBC (Bld) [#/Vol] 5.94 10*3/uL Normal 3.70-11.00 [facility] Comment on above: Order Comment: Speci men Type: BLOOD SPECIMEN Ordering Facility: [facility] Address: [address] [place] [address] Performed By: #### B HB, 02233-8 #### [facility] CLIA [id number] [address] [place] [address] [place] Bacteria Ur Culton Bacteria identified Cx Nom (U) CULTURE, URINE: No growth (<1,000 CFU/ml) Normal [facility] Comment on above: Performed By: #### 6 30-4 #### [facility] CLIA [id number] [address] [facility] [id number] [address] [place] Basic metabolic 2000 panelon 09-01-2023 Anion gap [Moles/Vol] 10 mmol/L Normal 9-18 [facility] Comment on above: Order Comment: Speci men Type: BLOOD SPECIMEN Ordering Facility: [facility] Address: [address] [place] [address] Performed By: #### B HB, 43956-2 #### [facility] CLIA [id number] [address] [place] [address] [place] Calcium [Mass/Vol] 7.9 mg/dL Low 8.5-10.2 [facility] Comment on above: Order Comment: Speci men Type: BLOOD SPECIMEN Ordering Facility: [facility] Address: [address] [place] [address] Performed By: #### B HB, 80238-6 #### [facility] CLIA [id number] [address] [place] [address] [place] Chloride [Moles/Vol] 108 mmol/L High 97-105 [facility] Comment on above: Order Comment: Speci men Type: BLOOD SPECIMEN Ordering Facility: [facility] Address: [address] [place] [address] Performed By: #### B HB, 84994-3 #### [facility] CLIA [id number] [address] [place] [address] [place] CO2 [Moles/Vol] 20 mmol/L Low 22-30 [facility] Comment on above: Order Comment: [place] Type: BLOOD SPECIMEN Ordering Facility: [facility] Address: [address] [place] [address] Performed By: #### B HB, 01828-7 #### [facility] CLIA [id number] [address] [place] [address] [place] Creatinine [Mass/Vol] 1.39 mg/dL High 0.58-0.96 [facility] Comment on above: Order Comment: [place] Type: BLOOD SPECIMEN Ordering Facility: [facility] Address: [address] [place] [address] Performed By: #### B HB, 87802-9 #### [facility] CLIA [id number] [address] [place] [address] [place] Creatinine and Glomerular filtration rate.predicted panel (S/P/Bld) 42 mL/min/1.73m??? Low >=60 [facility] Comment on above: Order Comment: [place] Type: BLOOD SPECIMEN Ordering Facility: [facility] Address: [address] [place] [address] Result Comment: Donna mated Glomerular Filtration Rate [...] actual GFR. Performed By: #### B HB, 45429-2 #### [facility] CLIA [id number] [address] [place] [address] [place] Glucose [Mass/Vol] 74 mg/dL Normal 74-99 [facility] Comment on above: Order Comment: [place] Type: BLOOD SPECIMEN Ordering Facility: [facility] Address: [address] [place] [address] Result Comment: The [place] [employer] (ADA) provides guidance for cutoff [...] Standards of Medical Care in Diabetes 2016, [place] [employer]. Diabetes Care. 2016.39(Suppl 1). Performed By: #### B HB, #### [facility] CLIA [id number] [address] [place] [address] [place] Potassium [Moles/Vol] 4.7 mmol/L Normal 3.7-5.1 [facility] Comment on above: Order Comment: [place] Type: BLOOD SPECIMEN Ordering Facility: [facility] Address: [address] [place] [address] Performed By: #### B HB, 18704-2 #### [facility] CLIA [id number] [address] [place] [address] [place] Sodium [Moles/Vol] 138 mmol/L Normal 136-144 [facility] Comment on above: Order Comment: [place] Type: BLOOD SPECIMEN Ordering Facility: [facility] Address: [address] [place] [address] Performed By: #### B HB, 05066-7 #### [facility] CLIA [id number] [address] [place] [address] [place] Urea nitrogen [Mass/Vol] 25 mg/dL High 7-21 [facility] Comment on above: Order Comment: Simonai men Type: BLOOD SPECIMEN Ordering Facility: [facility] Address: [address] [place] [address] Performed By: #### B HB, 81200-5 #### [facility] CLIA [id number] [address] [place] CBC panel Auto (Bld)on 09-01 Erythrocyte distribution width (RBC) [Ratio] 14.7 % Normal 11.5-15.0 [facility] Comment on above: Order Comment: Speci men Type: BLOOD SPECIMEN Ordering Facility: [facility] Address: [address] [place] [address] Performed By: #### B HB, 48654-6 #### [facility] CLIA [id number] [address] [place] [address] [place] Hematocrit (Bld) [Volume fraction] 29.4 % Low 36.0-46.0 [facility] Comment on above: Order Comment: Speci men Type: BLOOD SPECIMEN Ordering Facility: [facility] Address: [address] [place] [address] Performed By: #### B HB, #### [facility] CLIA [id number] [address] [place] [address] [place] Hemoglobin (Bld) [Mass/Vol] 9.1 g/dL Low 11.5-15.5 [facility] Comment on above: Order Comment: Speci men Type: BLOOD SPECIMEN Ordering Facility: [facility] Address: [address] [place] [address] Performed By: #### B HB, 24339-2 #### [facility] CLIA [id number] [address] [place] [address] [place] MCH (RBC) [Entitic mass] 24.4 pg Low 26.0-34.0 [facility] Comment on above: Order Comment: Speci men Type: BLOOD SPECIMEN Ordering Facility: [facility] Address: [address] [place] [address] Performed By: #### B HB, 89474-5 #### [facility] CLIA [id number] [address] [place] [address] [place] MCHC (RBC) [Mass/Vol] 31.0 g/dL Normal 30.5-36.0 [facility] Comment on above: Order Comment: Speci men Type: BLOOD SPECIMEN Ordering Facility: [facility] Address: [address] [place] [address] Performed By: #### B HB, #### [facility] CLIA [id number] [address] [place] [address] [place] MCV (RBC) [Entitic vol] 78.8 fL Low 80.0-100.0 [facility] Comment on above: Order Comment: Speci men Type: BLOOD SPECIMEN Ordering Facility: [facility] Address: [address] [place] [address] Performed By: #### B HB, #### [facility] CLIA [id number] [address] [place] [address] [place] Nucleated RBC (Bld) [#/Vol] 10*3/uL Normal <0.01 [facility] Comment on above: Order Comment: Speci men Type: BLOOD SPECIMEN Ordering Facility: [facility] Address: [address] [place] [address] Performed By: #### B HB, #### [facility] CLIA [id number] [address] [place] [address] [place] Platelet mean volume (Bld) [Entitic vol] 10.8 fL Normal 9.0-12.7 [facility] Comment on above: Order Comment: Speci men Type: BLOOD SPECIMEN Ordering Facility: [facility] Address: [address] [place] [address] Performed By: #### B HB, #### [facility] CLIA [id number] [address] [place] [address] [place] Platelets (Bld) [#/Vol] 275 10*3/uL Normal 150-400 [facility] Comment on above: Order Comment: Speci men Type: BLOOD SPECIMEN Ordering Facility: [facility] Address: [address] [place] [address] Performed By: #### B HB, 65509-4 #### [facility] CLIA [id number] [address] [place] [address] [place] RBC (Bld) [#/Vol] 3.73 10*6/uL Low 3.90-5.20 [facility] Comment on above: Order Comment: Speci men Type: BLOOD SPECIMEN Ordering Facility: [facility] Address: [address] [place] [address] Performed By: #### B HB, 33188-2 #### [facility] CLIA [id number] [address] [place] [address] [place] WBC (Bld) [#/Vol] 7.48 10*3/uL Normal 3.70-11.00 [facility] Comment on above: Order Comment: Speci men Type: BLOOD SPECIMEN Ordering Facility: [facility] Address: [address] [place] [address] Performed By: #### B HB, 37527-1 #### [facility] CLIA [id number] [address] [place] [address] OF [facility] CONSULTon 09-01-2023 CONSULT HNO ID: [id number] Author: NORMAN ROUSSEAU RN Service: ? Author [...] 2023 TIME: 10:44 AM PAGER/CONTACT #: Normal [facility] Magnesium SerPl-mCncon 09-01 Magnesium [Mass/Vol] 1.5 mg/dL Low 1.7-2.3 [facility] Comment on above: Order Comment: Speci men Type: BLOOD SPECIMEN Ordering Facility: [facility] Address: [address] [place] [address] Performed By: #### B HB, 42434-1 #### [facility] CLIA [id number] [address] [place] [address] [place] URINALYSIS, REFLEX MICROSCOP ICon 09-01-2023 Bacteria LM.HPF (Urine sed) [#/Area] Few Abnormal None Seen [facility] Comment on above: Order Comment: Speci men Type: BLOOD SPECIMEN Ordering Facility: [facility] Address: [address] [place] [address] Performed By: #### B HB, #### [facility] CLIA [id number] [address] [place] [address] [place] Bilirubin Ql (U) Negative Normal Negative [facility] Comment on above: Order Comment: Speci men Type: BLOOD SPECIMEN Ordering Facility: [facility] Address: [address] [place] [address] Performed By: #### B HB, #### [facility] CLIA [id number] [address] [place] [address] [place] Clarity (Unsp spec) Turbid Abnormal Clear [facility] Comment on above: Order Comment: Speci men Type: BLOOD SPECIMEN Ordering Facility: [facility] Address: [address] [place] [address] Performed By: #### B HB, #### [facility] CLIA [id number] [address] [place] [address] [place] Color (U) Light Yellow Normal Yellow [facility] Comment on above: Order Comment: Speci men Type: BLOOD SPECIMEN Ordering Facility: [facility] Address: [address] [place] [address] Performed By: #### B HB, #### [facility] CLIA [id number] [address] [place] [address] [place] Epithelial cells LM.HPF (Urine sed) [#/Area] Few Normal [facility] Comment on above: Order Comment: Speci men Type: BLOOD SPECIMEN Ordering Facility: [facility] Address: [address] [place] [address] Performed By: #### B HB, #### [facility] CLIA [id number] [address] [place] [address] [place] Glucose Test strip (U) [Mass/Vol] Negative Normal Trace, Negative [facility] Comment on above: Order Comment: Speci men Type: BLOOD SPECIMEN Ordering Facility: [facility] Address: [address] [place] [address] Performed By: #### B HB, #### [facility] CLIA [id number] [address] [place] [address] [place] Hemoglobin Ql (U) 1+ Abnormal Negative, Trace [facility] Comment on above: Order Comment: Speci men Type: BLOOD SPECIMEN [facility] [facility] Address: [address] [place] [address] Performed By: #### B HB, #### [facility] CLIA [id number] [address] [place] [address] [place] Ketones Ql (U) Negative Normal Negative, Trace [facility] Comment on above: Order Comment: Speci men Type: BLOOD SPECIMEN Ordering Facility: [facility] Address: [address] [place] [address] Performed By: #### B HB, #### [facility] CLIA [id number] [address] [place] [address] [place] Leukocyte esterase Test strip Ql (U) 500 Yuan/uL Abnormal Negative, 25 Yuan/uL [facility] Comment on above: Order Comment: Speci men Type: BLOOD SPECIMEN Ordering Facility: [facility] Address: [address] [place] [address] Performed By: #### B HB, #### [facility] CLIA [id number] [address] [place] [address] [place] Nitrite Ql (U) Negative Normal Negative [facility] Comment on above: Order Comment: Speci men Type: BLOOD SPECIMEN Ordering Facility: [facility] Address: [address] [place] [address] Performed By: #### B HB, #### [facility] CLIA [id number] [address] [place] [address] [place] pH (U) 6.0 [pH] Normal 5.0-8.0 [facility] Comment on above: Order Comment: Speci men Type: BLOOD SPECIMEN Ordering Facility: [facility] Address: [address] [place] [address] Performed By: #### B HB, #### [facility] CLIA [id number] [address] [place] [address] [place] Protein (U) [Mass/Vol] 1+ Abnormal Trace, Negative [facility] Comment on above: Order Comment: Speci men Type: BLOOD SPECIMEN Ordering Facility: [facility] Address: [address] [place] [address] Performed By: #### B HB, #### [facility] CLIA [id number] [address] [place] [address] [place] RBC LM.HPF (Urine sed) [#/Area] /[HPF] Abnormal 0-3 /HPF [facility] Comment on above: Order Comment: Speci men Type: BLOOD SPECIMEN Ordering Facility: [facility] Address: [address] [place] [address] Performed By: #### B HB, #### [facility] CLIA [id number] [address] [place] [address] [place] Specific gravity (U) [Rel density] 1.011 Normal 1.005-1.030 [facility] Comment on above: Order Comment: Speci men Type: BLOOD SPECIMEN Ordering Facility: [facility] Address: [address] [place] [address] Performed By: #### B HB, #### [facility] CLIA [id number] [address] [place] [address] [place] Urobilinogen Ql (U) Negative Normal Negative [facility] Comment on above: Order Comment: Speci men Type: BLOOD SPECIMEN Ordering Facility: [facility] Address: [address] [place] [address] Performed By: #### B HB, #### [facility] CLIA [id number] [address] [place] [address] [place] WBC LM.HPF (Urine sed) [#/Area] /[HPF] Abnormal 0-5 /HPF [facility] Comment on above: Order Comment: Speci men Type: BLOOD SPECIMEN Ordering Facility: [facility] Address: [address] [place] [address] Performed By: #### B HB, 51012-4 #### [facility] CLIA [id number] [place] ALLIED HEALTHon 08-31-2023 ALLIED HEALTH HNO ID: [id number] Author: LAKISHA LITTLE RT(R) Service: ? Author [...] RT Chriss(R) August 31, 2023 4:44 AM [facility] Bacteria Bld Culton 08-31-19 24 Bacteria identified Cx Nom (Bld) CULTURE, BLOOD: No growth 5 days Normal [facility] Comment on above: Performed By: #### 6 00-7 ####[facility] [id number] [address] [place] Bacteria Ur Culton 4 Bacteria identified Cx Nom (U) ORGANISM ID: 1 >=100,000 CFU/ml Mixed microbiota No further workup. Mixed microbiota can be due to???urine???contaminatio n with skin bacteria at time of collection or presence of a long-term urinary catheter. If a new culture is needed, please consider re-education of the patient on proper midstream collection technique or straight catheterization for???urine???collection. [facility] Comment on above: Performed By: #### 6 30-4 #### [facility] CLIA [id number] [address] [facility] [place] [address] [place] CBC W Auto Differential pane l (Bld)on 08-31-2023 Basophils (Bld) [#/Vol] 0.03 10*3/uL Normal <0.11 [facility] Comment on above: Order Comment: Speci men Type: BLOOD SPECIMEN Ordering Facility: [facility] Address: [address] [place] [address] Performed By: #### Kimberlyn HB, #### [facility] CLIA [id number] [address] [place] [address] [place] Basophils/100 WBC (Bld) 0.3 % Normal [facility] Comment on above: Order Comment: Speci men Type: BLOOD SPECIMEN Ordering Facility: [facility] Address: [address] [place] [address] Performed By: #### Kimberlyn HB, #### [facility] CLIA [id number] [address] [place] [address] [place] Differential cell count method Nom (Bld) Auto Normal [facility] Comment on above: Order Comment: Speci men Type: BLOOD SPECIMEN Ordering Facility: [facility] Address: [address] [place] [address] Performed By: #### B HB, #### [facility] CLIA [id number] [address] [place] [address] [place] Eosinophils (Bld) [#/Vol] 10*3/uL Normal <0.46 [facility] Comment on above: Order Comment: Speci men Type: BLOOD SPECIMEN Ordering Facility: [facility] Address: [address] [place] [address] Performed By: #### B HB, #### [facility] CLIA [id number] [address] [place] [address] [place] Eosinophils/100 WBC (Bld) 0.1 % Normal [facility] Comment on above: Order Comment: Speci men Type: BLOOD SPECIMEN Ordering Facility: [facility] Address: [address] [place] [address] Performed By: #### B HB, #### [facility] CLIA [id number] [address] [place] [address] [place] Erythrocyte distribution width (RBC) [Ratio] 14.5 % Normal 11.5-15.0 [facility] Comment on above: Order Comment: Speci men Type: BLOOD SPECIMEN Ordering Facility: [facility] Address: [address] [place] [address] Performed By: #### B HB, #### [facility] CLIA [id number] [address] [place] [address] [place] Hematocrit (Bld) [Volume fraction] 31.5 % Low 36.0-46.0 [facility] Comment on above: Order Comment: Speci men Type: BLOOD SPECIMEN Ordering Facility: [facility] Address: [address] [place] [address] Performed By: #### B HB, #### [facility] CLIA [id number] [address] [place] [address] [place] Hemoglobin (Bld) [Mass/Vol] 10.0 g/dL Low 11.5-15.5 [facility] Comment on above: Order Comment: Speci men Type: BLOOD SPECIMEN Ordering Facility: [facility] Address: [address] [place] [address] Performed By: #### B HB, #### [facility] CLIA [id number] [address] [place] [address] [place] Immature granulocytes (Bld) [#/Vol] 0.06 10*3/uL Normal <0.10 [facility] Comment on above: Order Comment: Speci men Type: BLOOD SPECIMEN Ordering Facility: [facility] Address: [address] [place] [address] Performed By: #### B HB, #### [facility] CLIA [id number] [address] [place] [address] [place] Immature granulocytes/100 WBC (Bld) 0.7 % Normal [facility] Comment on above: Order Comment: Speci men Type: BLOOD SPECIMEN Ordering Facility: [facility] Address: [address] [place] [address] Performed By: #### B HB, 75606-6 #### [facility] CLIA [id number] [address] [place] [address] [place] Lymphocytes (Bld) [#/Vol] 1.67 10*3/uL Normal 1.00-4.00 [facility] Comment on above: Order Comment: Speci men Type: BLOOD SPECIMEN Ordering Facility: [facility] Address: [address] [place] [address] Performed By: #### B HB, 44378-5 #### [facility] CLIA [id number] [address] [place] [address] Lymphocytes/100 WBC (Bld) 18.8 % Normal [facility] Comment on above: Order Comment: Speci men Type: BLOOD SPECIMEN Ordering Facility: [facility] Address: [address] [place] [address] Performed By: #### B HB, #### [facility] CLIA [id number] [address] [place] [address] [place] MCH (RBC) [Entitic mass] 24.5 pg Low 26.0-34.0 [facility] Comment on above: Order Comment: Speci men Type: BLOOD SPECIMEN Ordering Facility: [facility] Address: [address] [place] [address] Performed By: #### B HB, 89030-0 #### [facility] CLIA [id number] [address] [place] [address] [place] MCHC (RBC) [Mass/Vol] 31.7 g/dL Normal 30.5-36.0 [facility] Comment on above: Order Comment: Speci men Type: BLOOD SPECIMEN Ordering Facility: [facility] Address: [address] [place] [address] Performed By: #### B HB, 59221-2 #### [facility] CLIA [id number] [address] [place] [address] [place] MCV (RBC) [Entitic vol] 77.2 fL Low 80.0-100.0 [facility] Comment on above: Order Comment: Speci men Type: BLOOD SPECIMEN Ordering Facility: [facility] Address: [address] [place] [address] Performed By: #### B HB, #### [facility] CLIA [id number] [address] [place] [address] [place] Monocytes (Bld) [#/Vol] 0.71 10*3/uL Normal <0.87 [facility] Comment on above: Order Comment: Speci men Type: BLOOD SPECIMEN Ordering Facility: [facility] Address: [address] [place] [address] Performed By: #### B HB, #### [facility] CLIA [id number] [address] [place] [address] [place] Monocytes/100 WBC (Bld) 8.0 % Normal [facility] Comment on above: Order Comment: Speci men Type: BLOOD SPECIMEN Ordering Facility: [facility] Address: [address] [place] [address] Performed By: #### B HB, #### [facility] CLIA [id number] [address] [place] [address] [place] Neutrophils (Bld) [#/Vol] 6.39 10*3/uL Normal 1.45-7.50 [facility] Comment on above: Order Comment: Speci men Type: BLOOD SPECIMEN Ordering Facility: [facility] Address: [address] [place] [address] Performed By: #### B HB, #### [facility] CLIA [id number] [address] [place] [address] [place] Neutrophils/100 WBC (Bld) 72.1 % Normal [facility] Comment on above: Order Comment: Speci men Type: BLOOD SPECIMEN Ordering Facility: [facility] Address: [address] [place] [address] Performed By: #### B HB, #### [facility] CLIA [id number] [address] [place] [address] [place] Nucleated RBC (Bld) [#/Vol] 10*3/uL Normal <0.01 [facility] Comment on above: Order Comment: Speci men Type: BLOOD SPECIMEN Ordering Facility: [facility] Address: [address] [place] [address] Performed By: #### B HB, #### [facility] CLIA [id number] [address] [place] [address] [place] Nucleated RBC/100 WBC (Bld) [Ratio] 0.0 /100 WBC Normal [facility] Comment on above: Order Comment: Speci men Type: BLOOD SPECIMEN Ordering Facility: [facility] Address: [address] [place] [address] Performed By: #### B HB, #### [facility] CLIA [id number] [address] [place] [address] [place] Platelet mean volume (Bld) [Entitic vol] 11.3 fL Normal 9.0-12.7 [facility] Comment on above: Order Comment: Speci men Type: BLOOD SPECIMEN Ordering Facility: [facility] Address: [address] [place] [address] Performed By: #### B HB, #### [facility] CLIA [id number] [address] [place] [address] [place] Platelets (Bld) [#/Vol] 316 10*3/uL Normal 150-400 [facility] Comment on above: Order Comment: Speci men Type: BLOOD SPECIMEN Ordering Facility: [facility] Address: [address] [place] [address] Performed By: #### B HB, #### [facility] CLIA [id number] [address] [place] [address] [place] RBC (Bld) [#/Vol] 4.08 10*6/uL Normal 3.90-5.20 [facility] Comment on above: Order Comment: Speci men Type: BLOOD SPECIMEN Ordering Facility: [facility] Address: [address] [place] [address] Performed By: #### B HB, #### [facility] CLIA [id number] [place] [address] [place] WBC (Bld) [#/Vol] 8.87 10*3/uL Normal 3.70-11.00 [facility] Comment on above: Order Comment: Speci men Type: BLOOD SPECIMEN Ordering Facility: [facility] Address: [address] [place] [address] Performed By: #### B HB, 66990-4 #### [facility] CLIA [id number] [address] [place] [address] [place] Comprehensive metabolic 2000 panelon 08-31-2023 Albumin [Mass/Vol] 3.7 g/dL Low 3.9-4.9 [facility] Comment on above: Order Comment: Speci men Type: BLOOD SPECIMEN Ordering Facility: [facility] Address: [address] [place] [address] Performed By: #### B HB, 92845-0 #### [facility] CLIA [id number] [address] [place] [address] [place] ALP [Catalytic activity/Vol] 99 U/L Normal 34-123 [facility] Comment on above: Order Comment: Speci men Type: BLOOD SPECIMEN Ordering Facility: [facility] Address: [address] [place] [address] Performed By: #### B HB, 40232-7 #### [facility] CLIA [id number] [address] [place] [address] [place] ALT [Catalytic activity/Vol] U/L Low 7-38 [facility] Comment on above: Order Comment: Speci men Type: BLOOD SPECIMEN Ordering Facility: [facility] Address: [address] [place] [address] Performed By: #### B HB, 90207-9 #### [facility] CLIA [id number] [address] [place] [address] [place] Anion gap [Moles/Vol] 12 mmol/L Normal 9-18 [facility] Comment on above: Order Comment: Speci men Type: BLOOD SPECIMEN Ordering Facility: [facility] Address: [address] [place], [place] [address] Performed By: #### B HB, #### [facility] CLIA [id number] [address] [place] [address] [place] AST [Catalytic activity/Vol] 7 U/L Low 13-35 [facility] Comment on above: Order Comment: Speci men Type: BLOOD SPECIMEN Ordering Facility: [facility] Address: [address] [place] [address] Performed By: #### B HB, #### [facility] CLIA [id number] [address] [place] [address] [place] Bilirubin [Mass/Vol] 0.3 mg/dL Normal 0.2-1.3 [facility] Comment on above: Order Comment: Speci men Type: BLOOD SPECIMEN Ordering Facility: [facility] Address: [address] [place] [address] Performed By: #### B HB, #### [facility] CLIA [id number] [address] [place] [address] [place] Calcium [Mass/Vol] 8.7 mg/dL Normal 8.5-10.2 [facility] Comment on above: Order Comment: Speci men Type: BLOOD SPECIMEN Ordering Facility: [facility] Address: [address] [place] [address] Performed By: #### B HB, #### [facility] CLIA [id number] [address] [place] [address] [place] Chloride [Moles/Vol] 99 mmol/L Normal 97-105 [facility] Comment on above: Order Comment: Speci men Type: BLOOD SPECIMEN Ordering Facility: [facility] Address: [address] [place] [address] Performed By: #### B HB, #### [facility] CLIA [id number] [address] [place] [address] [place] CO2 [Moles/Vol] 19 mmol/L Low 22-30 [facility] Comment on above: Order Comment: Speci men Type: BLOOD SPECIMEN Ordering Facility: [facility] Address: [address] [place] [address] Performed By: #### B HB, 46016-4 #### [facility] CLIA [id number] [address] [place] [address] [place] Creatinine [Mass/Vol] 2.15 mg/dL High 0.58-0.96 [facility] Comment on above: Order Comment: [facility] Type: BLOOD SPECIMEN Ordering Facility: [facility] Address: [address] [place] [address] Performed By: #### B HB, 21097-0 #### [facility] CLIA [id number] [address] [place] [address] [place] Creatinine and Glomerular filtration rate.predicted panel (S/P/Bld) 25 mL/min/1.73m??? Low >=60 [facility] Comment on above: Order Comment: [place] Type: BLOOD SPECIMEN Ordering Facility: [facility] Address: [address] [place] [address] Result Comment: Donna mated Glomerular Filtration Rate [...] actual GFR. Performed By: #### B HB, 11102-3 #### [facility] CLIA [id number] [address] [place] [address] [place] Glucose [Mass/Vol] 428 mg/dL High 74-99 [facility] Comment on above: Order Comment: [place] Type: BLOOD SPECIMEN Ordering Facility: [facility] Address: [address] [place] [address] Result Comment: The [place] [employer] (ADA) provides guidance for cutoff [...] Standards of Medical Care in Diabetes 2016, [place] [employer]. Diabetes Care. 2016.39(Suppl 1). Performed By: #### B HB, 42363-2 #### [facility] CLIA [id number] [address] [place] [address] [place] Potassium [Moles/Vol] 5.2 mmol/L High 3.7-5.1 [facility] Comment on above: Order Comment: Speci men Type: BLOOD SPECIMEN Ordering Facility: [facility] Address: [address] [place] [address] Performed By: #### B HB, 59159-7 #### [facility] CLIA [id number] [address] [place] [address] [place] Protein [Mass/Vol] 9.1 g/dL High 6.3-8.0 [facility] Comment on above: Order Comment: Speci men Type: BLOOD SPECIMEN Ordering Facility: [facility] Address: [address] [place] [address] Performed By: #### B HB, 93343-3 #### [facility] CLIA [id number] [address] [place] [address] [place] Sodium [Moles/Vol] 130 mmol/L Low 136-144 [facility] Comment on above: Order Comment: Simonai men Type: BLOOD SPECIMEN Ordering Facility: [facility] Address: [address] [place] [address] Performed By: #### B HB, 28522-1 #### [facility] CLIA [id number] [address] [place] [address] [place] Urea nitrogen [Mass/Vol] 39 mg/dL High 7-21 [facility] Comment on above: Order Comment: Simonai men Type: BLOOD SPECIMEN Ordering Facility: [facility] Address: [address] [place] [address] Performed By: #### B HB, 60415-0 #### [facility] CLIA [id number] [address] [place] ECG COMPLETEon 08-31-2023 ECG COMPLETE Ventricular Rate : 7 1 BPM Atrial Rate : 71 BPM P-R Interval : 166 ms QRS Duration : 80 ms Q-T Interval : 396 ms QTC Calculation(Bazett) : 431 ms Calculated P [place] : 82 degrees Calculated R [place] : 71 degrees Calculated T [place] : 48 degrees Sinus rhythm Normal ECG NO STEMI. 0752 Confirmed by MD DE LEON MICHAEL ([id number]), social media editor THERESA SEAY ([id number]) on 08/31/2023 1:24:15 PM NAME : AISLINN WHEELER PID : [id number] : 1960 Gender : Female Race : ORD : [id number] Procedure Date : Aug 31 2023 07:16:42 Edit Date : Aug 31 2023 13:24:16 Diagnosis: Sinus rhythm Normal ECG NO STEMI. 0752 Confirmed by MD DE LEON MICHAEL ([id number]), social media editor THERESA SEAY ([id number]) on 08/31/2023 1:24:15 PM Test Reason : Chest Pain Location : 402 : FVED fved05 Overread By : MD DE LEON MICHAEL Edited By : THERESA SEAY Referred By : , Acquired by : [id number], [facility] ECG COMPLETE Ventricular Rate : 8 8 BPM Atrial Rate : 88 BPM P-R Interval : 153 ms QRS Duration : 78 ms Q-T Interval : 370 ms QTC Calculation(Bazett) : 448 ms Calculated P [place] : 85 degrees Calculated R [place] : 69 degrees Calculated T [place] : 62 degrees Sinus rhythm Normal ECG NO STEMI. 0604 Confirmed by KASIE SANDOVAL MD ([id number]), social media editor THERESA SEAY ([id number]) on 08/31/2023 1:02:55 PM NAME : AISLINN WHEELER PID : [id number] : 1960 Gender : Female Race : ORD : [id number] Procedure Date : Aug 31 2023 04:17:52 Edit Date : Aug 31 2023 13:02:57 Diagnosis: Sinus rhythm Normal ECG NO STEMI. 0604 Confirmed by KASIE SANDOVAL MD ([id number]), social media editor THERESA SEAY ([id number]) on 08/31/2023 1:02:55 PM Test Reason : Arrhythmia Location : 402 : ED fved05 Overread By : KASIE SANDOVAL MD Edited By : THERESA SEAY Referred By : , Acquired by : [id number], Normal [facility] ED PROV NOTEon 08-31-2023 ED PROV NOTE HNO ID: [id number] Author: RAYNA RHODES PA-C Service: Emergency Medicine Author Type: Physician Salt Refiner Type: ED Provider Notes Filed: 08/31/2023 08:06 Note Text: ----- Attestation signed by Kasie Sandoval MD at [...] Sandoval MD Date: 09/01/2023 Time: 11:51 AM ----- ED Provider Note Patient Name: Aislinn Wheeler : 1960 SERVICE DATE: 08/30/23 History Patient presents with: Diabetic Foot Ulcer: Sole of left foot. Pt states she saw her area captain and was directed to come to the [...] rarely occurring (more content not included)... Normal [facility] FLUABV+SARS-CoV-2+RSV Pnl Re sp ADRIEL+probeon 08-31-2023 FLUABV+SARS-CoV-2+RSV Pnl Resp ADRIEL+probe COVID 19 RESULT: Not detected The method used is RT-PCR or an equivalent NAAT method. Reference Range(the expected result in uninfected individuals): Not detected INFLUENZA A PCR: Not detected INFLUENZA B PCR: Not detected RSV PCR: Not detected Normal [facility] Comment on above: Performed By: #### 9 5941-1 ####[facility] [id number] [place] [address] [place] Gas and Carbon monoxide pane l (BldV)on 08-31-2023 BASE DEFICIT, VENOUS -5 mmol/L Low -2-0 [facility] Comment on above: Order Comment: Speci men Type: VENOUS BLOOD SPECIMEN [facility] [facility] Address: [address] [place] [address] Performed By: #### 2 4344-4 #### [facility] CLIA [id number] [address] [place] [address] [place] Body temperature 100.04 [degF] Normal [facility] Comment on above: Order Comment: Speci men Type: VENOUS BLOOD SPECIMEN Ordering Facility: [facility] Address: [address] [place] [address] Performed By: #### 2 4344-4 #### [facility] CLIA [id number] [address] [place] [address] [place] Calcium.ionized (Bld) [Mass/Vol] 1.08 mmol/L Normal 1.08-1.30 [facility] Comment on above: Order Comment: Speci men Type: VENOUS BLOOD SPECIMEN Ordering Facility: [facility] Address: [address] [place] [address] Performed By: #### 2 4344-4 #### [facility] CLIA [id number] [address] [place] [address] [place] Calcium.ionized adjusted to pH 7.4 (BldA) [Moles/Vol] 1.06 mmol/L Low 1.08-1.30 [facility] Comment on above: Order Comment: Speci men Type: VENOUS BLOOD SPECIMEN Ordering Facility: [facility] Address: [address] [place] [address] Performed By: #### 2 4344-4 #### [facility] CLIA [id number] [address] [place] [address] [place] Carboxyhemoglobin (BldV) [Mass fraction] 3.8 % High 0.0-2.0 [facility] Comment on above: Order Comment: Speci men Type: VENOUS BLOOD SPECIMEN Ordering Facility: [facility] Address: [address] [place] [address] Result Comment: Carb oxyhemoglobin Reference Range for Smokers: 2.0-8.0% Performed By: #### 2 4344-4 #### [facility] CLIA [id number] [address] [place] [address] [place] Chloride [Moles/Vol] 106 mmol/L High 97-105 [facility] Comment on above: Order Comment: Speci men Type: VENOUS BLOOD SPECIMEN Ordering Facility: [facility] Address: [address] [place] [address] Performed By: #### 2 4344-4 #### [facility] CLIA [id number] [address] [place] [address] [place] CO2 (BldV) [Partial pressure] 35 mm[Hg] Low 42-55 [facility] Comment on above: Order Comment: Speci men Type: VENOUS BLOOD SPECIMEN Ordering Facility: [facility] Address: [address] [place] [address] Performed By: #### 2 4344-4 #### [facility] CLIA [id number] [address] [place] [address] [place] CO2 adjusted to patient's actual temperature (BldV) [Partial pressure] Normal [facility] Comment on above: Order Comment: Speci men Type: VENOUS BLOOD SPECIMEN Ordering Facility: [facility] Address: [address] [place] [address] Performed By: #### 2 4344-4 #### [facility] CLIA [id number] [address] [place] [address] [place] Glucose [Mass/Vol] 460 mg/dL High 60-105 [facility] Comment on above: Order Comment: Speci men Type: VENOUS BLOOD SPECIMEN Ordering Facility: [facility] Address: [address] [place] [address] Performed By: #### 2 4344-4 #### [facility] CLIA [id number] [address] [place] [address] [place] HCO3 (Bld) [Moles/Vol] 19 mmol/L Low 24-28 [facility] Comment on above: Order Comment: Speci men Type: VENOUS BLOOD SPECIMEN Ordering Facility: [facility] Address: [address] [place] [address] Performed By: #### 2 4344-4 #### [facility] CLIA [id number] [address] [place] [address] [place] Hematocrit (Bld) [Volume fraction] 29.7 % Low 36.0-46.0 [facility] Comment on above: Order Comment: Speci men Type: VENOUS BLOOD SPECIMEN Ordering Facility: [facility] Address: [address] [place] [address] Performed By: #### 2 4344-4 #### [facility] CLIA [id number] [address] [place] [address] [place] Hemoglobin (Bld) [Mass/Vol] 9.6 g/dL Low 11.5-15.5 [facility] Comment on above: Order Comment: Speci men Type: VENOUS BLOOD SPECIMEN Ordering Facility: [facility] Address: [address] [place] [address] Performed By: #### 2 4344-4 #### [facility] CLIA [id number] [address] [place] [address] [place] Lactate [Moles/Vol] 1.1 mmol/L Normal 0.5-2.2 [facility] Comment on above: Order Comment: Speci men Type: VENOUS BLOOD SPECIMEN Ordering Facility: [facility] Address: [address] [place] [address] Performed By: #### 2 4344-4 #### [facility] CLIA [id number] [address] [place] [address] [place] Methemoglobin (Bld) [Mass fraction] 1.1 % Normal 0.0-1.5 [facility] Comment on above: Order Comment: Speci men Type: VENOUS BLOOD SPECIMEN Ordering Facility: [facility] Address: [address] [place] [address] Performed By: #### 2 4344-4 #### [facility] CLIA [id number] [address] [place] [address] [place] O2 THERAPY RA=Room Air Normal [facility] Comment on above: Order Comment: Speci men Type: VENOUS BLOOD SPECIMEN Ordering Facility: [facility] Address: [address] [place] [address] Performed By: #### 2 4344-4 #### [facility] CLIA [id number] [address] [place] [address] [place] Oxygen (BldV) [Partial pressure] 118 mm[Hg] High 35-45 [facility] Comment on above: Order Comment: Speci men Type: VENOUS BLOOD SPECIMEN Ordering Facility: [facility] Address: [address] [place] [address] Performed By: #### 2 4344-4 #### [facility] CLIA [id number] [address] [place] [address] [place] Oxygen adjusted to patient's actual temperature (BldV) [Partial pressure] Normal [facility] Comment on above: Order Comment: Speci men Type: VENOUS BLOOD SPECIMEN Ordering Facility: [facility] Address: [address] [place] [address] Performed By: #### 2 4344-4 #### [facility] CLIA [id number] [address] [place] [address] [place] Oxygen saturation in Venous blood 99 % High 60-85 [facility] Comment on above: Order Comment: Speci men Type: VENOUS BLOOD SPECIMEN Ordering Facility: [facility] Address: [address] [place] [address] Performed By: #### 2 4344-4 #### [facility] CLIA [id number] [address] [place] [address] [place] Oxyhemoglobin (BldV) [Mass fraction] 94 % High 60-85 [facility] Comment on above: Order Comment: Speci men Type: VENOUS BLOOD SPECIMEN Ordering Facility: [facility] Address: [address] [place] [address] Performed By: #### 2 4344-4 #### [facility] CLIA [id number] [address] [place] [address] [place] pH (BldV) 7.37 [pH] Normal 7.32-7.42 [facility] Comment on above: Order Comment: Speci men Type: VENOUS BLOOD SPECIMEN Ordering Facility: [facility] Address: [address] [place] [address] Performed By: #### 2 4344-4 #### [facility] CLIA [id number] [address] [place] [address] [place] pH adjusted to patient's actual temperature (BldV) Normal [facility] Comment on above: Order Comment: Speci men Type: VENOUS BLOOD SPECIMEN Ordering Facility: [facility] Address: [address] [place] [address] Performed By: #### 2 4344-4 #### [facility] CLIA [id number] [address] [place] [address] [place] Potassium [Moles/Vol] 5.3 mmol/L High 3.5-5.0 [facility] Comment on above: Order Comment: Speci men Type: VENOUS BLOOD SPECIMEN Ordering Facility: [facility] Address: [address] [place] [address] Performed By: #### 2 4344-4 #### [facility] CLIA [id number] [address] [place] [id number] [place] Sodium [Moles/Vol] 133 mmol/L Low 136-144 [facility] Comment on above: Order Comment: Speci men Type: VENOUS BLOOD SPECIMEN Ordering Facility: [facility] Address: [address] [place] [address] Performed By: #### 2 4344-4 #### [facility] CLIA [id number] [address] [place] [id number] [place] HISTORY PHYSICALon HISTORY PHYSICAL HNO ID: [id number] Author: ANTHONY BARROW MD Service: Hospital Medicine [...] left foot ulcer that patient was seen area captain as outpatient for and advised her to [...] sliding scale. Neurogenic bladder with retention requiring Valerio in the ER supposed to be on straight catheter recent urology note. Chronic pain on Lyrica and narcotic prescription will continue. Chronic anemia at baseline will continue to monitor. Medication and Non-Pharmacologic VTE Prophylaxis/Anticoagulant s 08/31/23 1115 activity - mobilize patient (md,nm) VTE Prophylaxis: VTE prophylaxis appropriate SIGNATURE: Anthony Barrow MD PATIENT NAME: Aislinn Wheeler DATE: August 31, 2023 TIME: 11:03 AM PAGER/CONTACT #: Normal [facility] KETONES/ACETONE/BHBon 2023 Beta hydroxybutyrate [Moles/Vol] 0.50 mmol/L High <0.28 [facility] Comment on above: Order Comment: [place] Type: BLOOD SPECIMEN Ordering Facility: [facility] Address: [address] [place] [address] Performed By: #### B HB, 38000-0 #### [facility] CLIA [id number] [address] [place] [address] [place] POTASSIUM BLDon 08-31-2023 Potassium [Moles/Vol] 4.6 mmol/L Normal 3.7-5.1 [facility] Comment on above: Order Comment: Speci men Type: BLOOD SPECIMEN Ordering Facility: [facility] Address: [address] [place] [address] Performed By: #### B HB, 80880-8 #### [facility] CLIA [id number] [address] [place] [address] [place] SEPSIS LACTATEon 08-31-2023 Lactate [Moles/Vol] 1.2 mmol/L Normal 0.0-2.0 [facility] Comment on above: Order Comment: Speci men Type: BLOOD SPECIMEN Ordering Facility: [facility] Address: [address] [place] [address] Performed By: #### B HB, #### [facility] CLIA [id number] [address] [place] [address] [place] Urinalysis complete panel (U )on 08-31-2023 Bacteria LM.HPF (Urine sed) [#/Area] Many Abnormal None Seen [facility] Comment on above: Order Comment: Speci men Type: BLOOD SPECIMEN Ordering Facility: [facility] Address: [address] [place] [address] Performed By: #### B HB, #### [facility] CLIA [id number] [address] [place] [address] [place] Bilirubin Ql (U) Negative Normal Negative [facility] Comment on above: Order Comment: Speci men Type: BLOOD SPECIMEN Ordering Facility: [facility] Address: [address] [place] [address] Performed By: #### B HB, #### [facility] CLIA [id number] [address] [place] [address] [place] Clarity (Unsp spec) Turbid Abnormal Clear [facility] Comment on above: Order Comment: Speci men Type: BLOOD SPECIMEN Ordering Facility: [facility] Address: [address] [place] [address] Performed By: #### B HB, #### [facility] CLIA [id number] [address] [place] [address] [place] Color (U) Light Yellow Normal Yellow [facility] Comment on above: Order Comment: Speci men Type: BLOOD SPECIMEN Ordering Facility: [facility] Address: [address] [place] [address] Performed By: #### B HB, #### [facility] CLIA [id number] [address] [place] [address] [place] Glucose Test strip (U) [Mass/Vol] 4+ Abnormal Trace, Negative [facility] Comment on above: Order Comment: Speci men Type: BLOOD SPECIMEN Ordering Facility: [facility] Address: [address] [place] [address] Performed By: #### B HB, #### [facility] CLIA [id number] [address] [place] [address] [place] Hemoglobin Ql (U) Trace Normal Negative, Trace [facility] Comment on above: Order Comment: Speci men Type: BLOOD SPECIMEN Ordering Facility: [facility] Address: [address] [place] [address] Performed By: #### B HB, #### [facility] CLIA [id number] [address] [place] [address] [place] Ketones Ql (U) Negative Normal Negative, Trace [facility] Comment on above: Order Comment: Speci men Type: BLOOD SPECIMEN Ordering Facility: [facility] Address: [address] [place] [address] Performed By: #### B HB, #### [facility] CLIA [id number] [address] [place] [address] [place] Leukocyte esterase Test strip Ql (U) 500 Yuan/uL Abnormal Negative, 25 Yuan/uL [facility] Comment on above: Order Comment: Speci men Type: BLOOD SPECIMEN Ordering Facility: [facility] Address: [address] [place] [address] Performed By: #### B HB, #### [facility] CLIA [id number] [address] [place] [address] [place] Nitrite Ql (U) Negative Normal Negative [facility] Comment on above: Order Comment: Speci men Type: BLOOD SPECIMEN Ordering Facility: [facility] Address: [address] [place] [address] Performed By: #### B HB, #### [facility] CLIA [id number] [address] [place] [address] [place] pH (U) 6.0 [pH] Normal 5.0-8.0 [facility] Comment on above: Order Comment: Speci men Type: BLOOD SPECIMEN Ordering Facility: [facility] Address: [address] [place] [address] Performed By: #### B HB, #### [facility] CLIA [id number] [address] [place] [address] [place] Protein (U) [Mass/Vol] 1+ Abnormal Trace, Negative [facility] Comment on above: Order Comment: Speci men Type: BLOOD SPECIMEN Ordering Facility: [facility] Address: [address] [place] [address] Performed By: #### B HB, #### [facility] CLIA [id number] [address] [place] [address] [place] RBC LM.HPF (Urine sed) [#/Area] 3-5 /HPF Abnormal 0-3 /HPF [facility] Comment on above: Order Comment: Speci men Type: BLOOD SPECIMEN Ordering Facility: [facility] Address: [address] [place] [address] Performed By: #### B HB, #### [facility] CLIA [id number] [address] [place] [address] [place] Specific gravity (U) [Rel density] 1.017 Normal 1.005-1.030 [facility] Comment on above: Order Comment: Speci men Type: BLOOD SPECIMEN Ordering Facility: [facility] Address: [address] [place] [address] Performed By: #### B HB, #### [facility] CLIA [id number] [address] [place] [address] [place] Urobilinogen Ql (U) Negative Normal Negative [facility] Comment on above: Order Comment: Speci men Type: BLOOD SPECIMEN Ordering Facility: [facility] Address: [address] [place] [address] Performed By: #### B HB, #### [facility] CLIA [id number] [address] [place] [address] [place] WBC LM.HPF (Urine sed) [#/Area] /[HPF] Abnormal 0-5 /HPF [facility] Comment on above: Order Comment: Speci men Type: BLOOD SPECIMEN Ordering Facility: [facility] Address: [place] [id number] Performed By: #### B , 96489-5 #### [facility] [id number] [address] [place] [id number] [place] XR CHEST 1V [...] Fatigue and malaise, Fatigue and malaise (accession [id number]), Osteomyelitis (accession [id number]) MQ: XC1_5 Comparison: CT 01/17/2021, radiograph 01/17/2021 [...] performed for increased sensitivity, as clinically warranted. Remote Sensing Analyst: PSCB Transcribe Date/Time: Aug 31 2023 4:46A Dictated by : TAURUS MORTON MD This examination was interpreted and the report reviewed and electronically signed by: TAURUS MORTON MD on Aug 31 2023 4:51AM EST [id number] Normal [facility] XR FOOT 3V AP/LAT/OBL LTon 0 1-11-2024 XR FOOT 3V AP/LAT/OBL LT * * [...] Fatigue and malaise, Fatigue and malaise (accession [id number]), Osteomyelitis (accession [id number]) MQ: XC1_5 Comparison: CT 01/17/2021, radiograph 01/17/2021 [...] performed for increased sensitivity, as clinically warranted. Remote Sensing Analyst: GUILLE Transcribe Date/Time: Aug 31 2023 4:46A Dictated by : TAURUS MORTON MD This examination was interpreted and the report reviewed and electronically signed by: TAURUS MORTON MD on Aug 31 2023 4:51AM EST [id number] Normal [facility] Operative Reporton Operative Report [id number]#1.00TIFF Normal [facility] Pathology Noteon 08-07-2023 Pathology Note [id number]#1.00TIFF Normal [facility] ED Note-Physicianon 06-29-20 ED Note-Physician [id number]#1.00TIFF Normal [facility] Patient Letter FTMCon 2022 Patient Letter [facility] (Inserted Image. Grecia ble to display) June 28, 2023 AISLINN WHEELER [address] [place] [id number] : 1960 Dear Aislinn, You missed your [...] any future cancellations. Sincerely, [facility] [address], [place] [address] Pt called and RS'd. Normal [facility] Basic metabolic 2000 panelon 06-23-2023 Anion gap [Moles/Vol] 9 mmol/L Normal 9-18 [facility] Comment on above: Order Comment: Speci men Type: BLOOD SPECIMEN Ordering Facility: [facility] Address: [address] [place] [address] Performed By: #### B HB, 91248-7 #### [facility] CLIA [id number] [address] [place] [address] [place] Calcium [Mass/Vol] 7.3 mg/dL Low 8.5-10.2 [facility] Comment on above: Order Comment: Speci men Type: BLOOD SPECIMEN Ordering Facility: [facility] Address: [address] [place] [address] Performed By: #### B HB, 71394-8 #### [facility] CLIA [id number] [place] [address] [place] Chloride [Moles/Vol] 110 mmol/L High 97-105 [facility] Comment on above: Order Comment: Speci men Type: BLOOD SPECIMEN Ordering Facility: [facility] Address: [address] [place] [address] Performed By: #### B HB, #### [facility] CLIA [id number] [address] [place] [address] [place] CO2 [Moles/Vol] 19 mmol/L Low 22-30 [facility] Comment on above: Order Comment: Speci men Type: BLOOD SPECIMEN Ordering Facility: [facility] Address: [address] [place] [address] Performed By: #### B HB, #### [facility] CLIA [id number] [address] [place] [address] [place] Creatinine [Mass/Vol] 1.39 mg/dL High 0.58-0.96 [facility] Comment on above: Order Comment: Speci men Type: BLOOD SPECIMEN Ordering Facility: [facility] Address: [address] [place] [address] Performed By: #### B HB, #### [facility] CLIA [id number] [address] [place] [address] [place] Creatinine and Glomerular filtration rate.predicted panel (S/P/Bld) 42 mL/min/1.73m??? Low >=60 [facility] Comment on above: Order Comment: Speci men Type: BLOOD SPECIMEN Ordering Facility: [facility] Address: [address] [place] [address] Result Comment: Donna mated Glomerular Filtration Rate [...] GFR. Performed By: #### B HB, #### [facility] CLIA [id number] [address] [place] [address] [place] Glucose [Mass/Vol] 157 mg/dL High 74-99 [facility] Comment on above: Order Comment: [place] Type: BLOOD SPECIMEN Ordering Facility: [facility] Address: [address] [place] [address] Result Comment: The [place] [employer] (ADA) provides guidance for cutoff [...] Standards of Medical Care in Diabetes 2016, [place] [employer]. Diabetes Care. 2016.39(Suppl 1). Performed By: #### B HB, 92451-5 #### [facility] CLIA [id number] [address] [place] [address] [place] Potassium [Moles/Vol] 5.1 mmol/L Normal 3.7-5.1 [facility] Comment on above: Order Comment: [place] Type: BLOOD SPECIMEN Ordering Facility: [facility] Address: [address] [place] [address] Performed By: #### B HB, 30979-2 #### [facility] CLIA [id number] [address] [place] [address] [place] Sodium [Moles/Vol] 138 mmol/L Normal 136-144 [facility] Comment on above: Order Comment: [place] Type: BLOOD SPECIMEN Ordering Facility: [facility] Address: [address] [place] [address] Performed By: #### B HB, 41634-8 #### [facility] CLIA [id number] [address] [place] [address] [place] Urea nitrogen [Mass/Vol] 21 mg/dL Normal 7-21 [facility] Comment on above: Order Comment: Speci men Type: BLOOD SPECIMEN Ordering Facility: [facility] Address: [address] [place] [address] Performed By: #### B HB, #### [facility] CLIA [id number] [address] [place] [address] [place] CBC panel Auto (Bld)on 06-23 Erythrocyte distribution width (RBC) [Ratio] 14.4 % Normal 11.5-15.0 [facility] Comment on above: Order Comment: Speci men Type: BLOOD SPECIMEN Ordering Facility: [facility] Address: [address] [place] [address] Performed By: #### B HB, #### [facility] CLIA [id number] [address] [place] [address] [place] Hematocrit (Bld) [Volume fraction] 28.5 % Low 36.0-46.0 [facility] Comment on above: Order Comment: Speci men Type: BLOOD SPECIMEN Ordering Facility: [facility] Address: [address] [place] [address] Performed By: #### B HB, #### [facility] CLIA [id number] [address] [place] [address] [place] Hemoglobin (Bld) [Mass/Vol] 9.0 g/dL Low 11.5-15.5 [facility] Comment on above: Order Comment: Speci men Type: BLOOD SPECIMEN Ordering Facility: [facility] Address: [address] [place] [address] Performed By: #### B HB, #### [facility] CLIA [id number] [address] [place] [address] [place] MCH (RBC) [Entitic mass] 25.2 pg Low 26.0-34.0 [facility] Comment on above: Order Comment: Speci men Type: BLOOD SPECIMEN Ordering Facility: [facility] Address: [address] [place] [address] Performed By: #### B HB, 30489-3 #### [facility] CLIA [id number] [address] [place] [address] [place] MCHC (RBC) [Mass/Vol] 31.6 g/dL Normal 30.5-36.0 [facility] Comment on above: Order Comment: Speci men Type: BLOOD SPECIMEN Ordering Facility: [facility] Address: [address] [place] [address] Performed By: #### B HB, #### [facility] CLIA [id number] [address] [place] [address] [place] MCV (RBC) [Entitic vol] 79.8 fL Low 80.0-100.0 [facility] Comment on above: Order Comment: Speci men Type: BLOOD SPECIMEN Ordering Facility: [facility] Address: [address] [place] [address] Performed By: #### B HB, #### [facility] CLIA [id number] [address] [place] [address] [place] Nucleated RBC (Bld) [#/Vol] 10*3/uL Normal <0.01 [facility] Comment on above: Order Comment: Speci men Type: BLOOD SPECIMEN Ordering Facility: [facility] Address: [address] [place] [address] Performed By: #### B HB, #### [facility] CLIA [id number] [address] [place] [address] [place] Platelet mean volume (Bld) [Entitic vol] 10.6 fL Normal 9.0-12.7 [facility] Comment on above: Order Comment: Speci men Type: BLOOD SPECIMEN Ordering Facility: [facility] Address: [address] [place] [address] Performed By: #### B HB, #### [facility] CLIA [id number] [address] [place] [address] [place] Platelets (Bld) [#/Vol] 251 10*3/uL Normal 150-400 [facility] Comment on above: Order Comment: Speci men Type: BLOOD SPECIMEN Ordering Facility: [facility] Address: [address] [place] [address] Performed By: #### B HB, 80565-1 #### [facility] CLIA [id number] [address] [place] [address] [place] RBC (Bld) [#/Vol] 3.57 10*6/uL Low 3.90-5.20 [facility] Comment on above: Order Comment: Speci men Type: BLOOD SPECIMEN Ordering Facility: [facility] Address: [address] [place] [address] Performed By: #### B HB, 15744-5 #### [facility] CLIA [id number] [address] [place] [address] [place] WBC (Bld) [#/Vol] 7.47 10*3/uL Normal 3.70-11.00 [facility] Comment on above: Order Comment: Speci men Type: BLOOD SPECIMEN Ordering Facility: [facility] Address: [address] [place] [address] Performed By: #### B HB, 96624-0 #### [facility] CLIA [id number] OF [facility] CNDSon 06-23-2023 CNDS HNO ID: [id number] Author: Annie Martinez APRN.WEB METHODS DEVELOPER Service: Urology Author Type: Nurse Practitioner Type: Discharge Summary Filed: 06/23/2023 12:15 PM Note Text: ----- Attestation signed by Taurus Ballard MD at 06/23/2023 1:43 PM The above noted history, physical, assessment and plan were reviewed with the provider and critical portions of the HANDP were confirmed. I agree with the plan above and provided direct supervision of the above provider during this patient's care. Taurus Ballard MD ----- The [address] [address] or ([phone]) [facility] C O N F I D E N T I A L I N F O R M A T I O N STANDARD [facility] DOCUMENT DISCHARGE SUMMARY [...] for follow up in clinic postoperatively. The valerio catheter was removed. The surgical drain was [...] Your Medications These medications were sent to [facility] [address] [place] [address] Hours: Monday-Monday: 7am-7pm, Sat: 9am-1pm acetaminophen 325 mg tablet docusate sodium 100 mg capsule Future Appointments: No future appointments. Electronically SIGNED by Licensed Independent Practitioner: Annie Martinez APRN.[facility] 06-23-2023 [facility] Telephone ([facility]) ----- AISLINN WHEELER ([id number]) 1960 F Date Time Provider Department 06/23/23 HEIDY GARCIA During your visit today, we recorded the following information about you: Heidy Garcia RN 06/23/2023 9:05 AM Signed Patient had left robotic partial nephrectomy by Dr. Ballard on 06/22/2023 Will call for surgical follow up once discharged Heidy Garcia RN 06/26/2023 10:45 AM Signed Patient phone number non functioning. Active in [employer], will send message inquiring on how she's feeling post-operatively. Vonnie Wilder RN 06/27/2023 10:15 AM Signed Spoke with grand daughter, Lola, as this office is unable to reach patient for post op call. Lola reports, that patient's phone is turned off, and she does not know how to use [facility]. Lola reports that patient went to [place] [facility] due to excruciating pain -was given [...] Encounter Status:Closed by HEIDY GARCIA on 06/23/23 [facility] NURSING PROGon 06-23-2023 NURSING PROG HNO ID: [id number] Author: Sweta Cordova RN Service: ? Author Type: Registered Nurse Type: Nursing Progress Note Filed: 06/23/2023 3:51 PM Note Text: Other: 1112: Page sent to Urology. Patients valerio catheter discontinue this AM. Per patient, she [...] Annie Martinez, awaiting PRN order of hydralazine. [facility] ANES POSTPROC EVALon 023 ANES POSTPROC EVAL HNO ID: [id number] Author: Rikki Jhaveri MD Service: Anesthesiology Author Type: Anesthesiologist Type: Anesthesia Postprocedure Evaluation Filed: 06/22/2023 2:18 PM Note Text: POST ANESTHESIA EVALUATION NOTE : 1960 Procedure Summary Date: 06/22/23 Room / Location: [place] [address] / OR Anesthesia Start: 1107 Anesthesia Stop: [...] June 22, 2023 TIME: 2:18 PM CSN: [id number] [facility] ANES PRE-OPon 06-22-2023 ANES PRE-OP HNO ID: [id number] Author: Rikki Jhaveri MD Service: Anesthesiology Author [...] mg by mouth three times daily. - HYDROcodone-Acetaminophen (NORCO) 7.5-325 mg per tablet [...] June 22, 2023 TIME: 9:54 AM CSN: [id number] Normal [facility] Basic metabolic 2000 panelon 06-22-2023 Anion gap [Moles/Vol] 7 mmol/L Low 9-18 [facility] Comment on above: Order Comment: Speci men Type: BLOOD SPECIMEN Ordering Facility: [facility] Address: [place] [address] Performed By: #### 2 4321-2 #### [facility] CLIA [id number] [address] [place] [address] [place] Calcium [Mass/Vol] 7.5 mg/dL Low 8.5-10.2 [facility] Comment on above: Order Comment: Speci men Type: BLOOD SPECIMEN Ordering Facility: [facility] Address: [address] [place] [address] Performed By: #### 2 4321-2 #### [facility] CLIA [id number] [address] [place] [address] [place] Chloride [Moles/Vol] 108 mmol/L High 97-105 [facility] Comment on above: Order Comment: Speci men Type: BLOOD SPECIMEN Ordering Facility: [facility] Address: [address] [place] [address] Performed By: #### 2 4321-2 #### [facility] CLIA [id number] [address] [place] [address] [place] CO2 [Moles/Vol] 19 mmol/L Low 22-30 [facility] Comment on above: Order Comment: Speci men Type: BLOOD SPECIMEN Ordering Facility: [facility] Address: [address] [place] [address] Performed By: #### 2 4321-2 #### [facility] CLIA [id number] [address] [place] [address] [place] Creatinine [Mass/Vol] 1.57 mg/dL High 0.58-0.96 [facility] Comment on above: Order Comment: Speci men Type: BLOOD SPECIMEN Ordering Facility: [facility] Address: [address] [place] [address] Performed By: #### 2 4321-2 #### [facility] CLIA [id number] [address] [place] [address] [place] Creatinine and Glomerular filtration rate.predicted panel (S/P/Bld) 36 mL/min/1.73m??? Low >=60 [facility] Comment on above: Order Comment: Speci men Type: BLOOD SPECIMEN Ordering Facility: [facility] Address: [address] [place] [address] Result Comment: Donna mated Glomerular Filtration Rate [...] GFR. Performed By: #### 2 4321-2 #### [facility] CLIA [id number] [address] [place] [address] [place] Glucose [Mass/Vol] 275 mg/dL High 74-99 [facility] Comment on above: Order Comment: [place] Type: BLOOD SPECIMEN Ordering Facility: [facility] Address: [address] [place] [address] Result Comment: The [place] Diabetes Association (ADA) provides guidance for cutoff [...] Standards of Medical Care in Diabetes 2016, [place] [employer]. Diabetes Care. 2016.39(Suppl 1). Performed By: #### 2 4321-2 #### [facility] CLIA [id number] [address] [place] [address] [place] Potassium [Moles/Vol] 5.3 mmol/L High 3.7-5.1 [facility] Comment on above: Order Comment: [place] Type: BLOOD SPECIMEN Ordering Facility: [facility] Address: [address] [place] [address] Performed By: #### 2 4321-2 #### [facility] CLIA [id number] [address] [place] [address] [place] Sodium [Moles/Vol] 134 mmol/L Low 136-144 [facility] Comment on above: Order Comment: [place] Type: BLOOD SPECIMEN Ordering Facility: [facility] Address: [address] [place] [address] Performed By: #### 2 4321-2 #### [facility] CLIA [id number] [address] [place] [address] [place] Urea nitrogen [Mass/Vol] 26 mg/dL High 7-21 [facility] Comment on above: Order Comment: Speci men Type: BLOOD SPECIMEN Ordering Facility: [facility] Address: [address] [place] [address] Performed By: #### 2 4321-2 #### [facility] CLIA [id number] [address] [place] [address] [place] CBC panel Auto (Bld)on 06-22 Erythrocyte distribution width (RBC) [Ratio] 14.3 % Normal 11.5-15.0 [facility] Comment on above: Order Comment: Speci men Type: BLOOD SPECIMEN Ordering Facility: [facility] Address: [address] [place] [address] Performed By: #### 5 8410-2 #### [facility] CLIA [id number] [address] [place] [address] [place] Hematocrit (Bld) [Volume fraction] 27.8 % Low 36.0-46.0 [facility] Comment on above: Order Comment: Speci men Type: BLOOD SPECIMEN Ordering Facility: [facility] Address: [address] [place] [address] Performed By: #### 5 8410-2 #### [facility] CLIA [id number] [address] [place] [address] [place] Hemoglobin (Bld) [Mass/Vol] 8.9 g/dL Low 11.5-15.5 [facility] Comment on above: Order Comment: Speci men Type: BLOOD SPECIMEN Ordering Facility: [facility] Address: [address] [place] [address] Performed By: #### 5 8410-2 #### [facility] CLIA [id number] [address] [place] [address] MCH (RBC) [Entitic mass] 25.3 pg Low 26.0-34.0 [facility] Comment on above: Order Comment: Speci men Type: BLOOD SPECIMEN Ordering Facility: [facility] Address: [address] [place] [address] Performed By: #### 5 8410-2 #### [facility] CLIA [id number] [address] [place] [address] [place] MCHC (RBC) [Mass/Vol] 32.0 g/dL Normal 30.5-36.0 [facility] Comment on above: Order Comment: Speci men Type: BLOOD SPECIMEN Ordering Facility: [facility] Address: [address] [place] [address] Performed By: #### 5 8410-2 #### [facility] CLIA [id number] [address] [place] [address] [place] MCV (RBC) [Entitic vol] 79.0 fL Low 80.0-100.0 [facility] Comment on above: Order Comment: Speci men Type: BLOOD SPECIMEN Ordering Facility: [facility] Address: [address] [place] [address] Performed By: #### 5 8410-2 #### [facility] CLIA [id number] [address] [place] [address] [place] Nucleated RBC (Bld) [#/Vol] 10*3/uL Normal <0.01 [facility] Comment on above: Order Comment: Speci men Type: BLOOD SPECIMEN Ordering Facility: [facility] Address: [address] [place] [address] Performed By: #### 5 8410-2 #### [facility] CLIA [id number] [address] [place] [address] [place] Platelet mean volume (Bld) [Entitic vol] 10.8 fL Normal 9.0-12.7 [facility] Comment on above: Order Comment: Speci men Type: BLOOD SPECIMEN Ordering Facility: [facility] Address: [address] [place] [address] Performed By: #### 5 8410-2 #### [facility] CLIA [id number] [address] [place] [address] [place] Platelets (Bld) [#/Vol] 230 10*3/uL Normal 150-400 [facility] Comment on above: Order Comment: Speci men Type: BLOOD SPECIMEN Ordering Facility: [facility] Address: [address] [place] [address] Performed By: #### 5 8410-2 #### [facility] CLIA [id number] [place] [address] [place] RBC (Bld) [#/Vol] 3.52 10*6/uL Low 3.90-5.20 [facility] Comment on above: Order Comment: Speci men Type: BLOOD SPECIMEN Ordering Facility: [facility] Address: [address] [place] [address] Performed By: #### 5 8410-2 #### [facility] CLIA [id number] [address] [place] [address] [place] WBC (Bld) [#/Vol] 6.04 10*3/uL Normal 3.70-11.00 [facility] Comment on above: Order Comment: Speci men Type: BLOOD SPECIMEN Ordering Facility: [facility] Address: [address] [place] [address] Performed By: #### 5 8410-2 #### [facility] CLIA [id number] [address] [place] [address] OF [facility] NURSING PROGon 06-22-2023 NURSING PROG HNO ID: [id number] Author: Afia Lanier RN Service: Nursing Author Type: Registered Nurse Type: Nursing Progress Note Filed: 06/22/2023 5:56 PM Note Text: Transfer Note: PATIENT NAME: Aislinn Wheeler Patient Location: [place] [address]/[id number] Room: [place] [address] Patient transferred into room/unit [id number] in stable condition. Actions taken: No futher actions taken at this time. Will continue to monitor and check with patient. [facility] NURSING PROG HNO ID: [id number] Author: Linda Nicholson, REY Service: Nursing Author Type: Registered Nurse Type: Nursing Progress Note Filed: 06/22/2023 12:20 PM Note Text: pre-incision juan area noted to have redness and inflamed, prior to prepping and putting valerio in. Normal [facility] NURSING PROG HNO ID: [id number] Author: Elva Joy RN Service: Nursing Author [...] (RECOMMENDATION): None Electronically Signed By: Elva Joy [facility] OPERATIVE NOon 06-22-2023 OPERATIVE NO HNO ID: [id number] Author: Taurus Ballard MD Service: Urology Author Type: Physician Type: Operative Report Filed: 06/22/2023 1:48 PM Note Text: OPERATIVE/PROCEDURE REPORT LOG ID: [id number] Surgery/Procedure Date: 06/22/2023 Incision/Procedure Start Time: 11:49 AM Incision Close/Procedure End Time: 1:55 PM Surgeon(s)/Proceduralist( s) and Salt Refiner(s): Surgeon(s) and Role: * Taurus Ballard MD - Primary * Jeet De La Fuente MD - Resident - Assisting Physician Salt Refiner: Camden Rios PA-C; Alicia Harmon PA-C Procedure(s): [...] superior to the umbilicus a 12 mm corporate administrative assistant port was placed. At this [...] a specimen bag out of the supraumbilical corporate administrative assistant port. This port was closed [...] None Drains: 10 flat JUAN drain, 16 [place] Valerio catheter Complications: None Accidental Punctures/Lacerations: None I/primary surgeon/proceduralist performed the procedure with assistance. SIGNATURE: Taurus Ballard MD PATIENT NAME: Aislinn Wheeler DATE: June 22, 2023 TIME: 1:42 PM PAGER/CONTACT #: [facility] SURGICAL PATHOLOGYon 023 CASE REPORT [facility] Comment on above: Order Comment: Speci men Type: BLOOD SPECIMEN Ordering Facility: [facility] Address: [address] [place] [address] Result Comment: Surg ical Pathology Report Case: [id number] Authorizing Provider: Taurus Ballard MD Collected: 06/22/2023 01:38 PM Ordering Location: [facility] Received: 06/22/2023 03:16 PM Operating Room Pathologist: Barron Cheema MD Specimen: KIDNEY PARTIAL NEPHRECTOMY LEFT, left renal neoplasm Performed By: #### Kimberlyn FISCHER, 15419-4 #### [facility] CLIA [id number] [place] CLINICAL HISTORY Normal [facility] Comment on above: Order Comment: Speci men Type: BLOOD SPECIMEN Ordering Facility: [facility] Address: [address] [place] [address] Result Comment: 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 Normal [facility] Comment on above: Order Comment: Speci men Type: BLOOD SPECIMEN Ordering Facility: [facility] Address: [address] [place] [address] Performed By: #### [place], 87577-0 #### [facility] CLIA [id number] [address] [place] [address] FINAL DIAGNOSIS [facility] Comment on above: Order Comment: Speci men Type: BLOOD SPECIMEN Ordering Facility: [facility] Address: [address] [place] [address] Result Comment: Emre mcgrath, left, partial nephrectomy: - 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 - 7.2 cm gross greatest dimension of tissue specimen (defer to clinical/imaging for overall lesion size). Performed By: #### [place], 56716-2 #### [facility] CLIA [id number] [address] [place] [address] FINAL PERFORMING LAB Normal [facility] Comment on above: Order Comment: Speci men Type: BLOOD SPECIMEN Ordering Facility: [facility] Address: [address] [place] [address] Result Comment: Diag nostic interpretation performed at [facility], [address] [place] [address] CLIA# [id number] Medical Records Field Technician: Oswald Munguia M.D. Performed By: #### [place], 720[address]-6 #### [facility] CLIA [id number] [address] [place] [address] GROSS DESCRIPTION Normal [facility] Comment on above: Order Comment: Speci men Type: BLOOD SPECIMEN Ordering Facility: [facility] Address: [address] [place] [address] Result Comment: A. K IDNEY PARTIAL NEPHRECTOMY LEFT Received in formalin designated left renal neoplasm is a segment of chilel-purple membranous tissue which weighs 39 g and measures 7.2 x 5.5 x 3.5 cm. There is cautery present at the margin which is inked orange. The surfaces are smooth with no masses or papillations grossly appreciated. Sectioning does not reveal any masses. Sign Designer sections are submitted in 5 cassettes. BF June 23, 2023 9:00 AM Gross examination performed at [facility], [address] [place] [address] CLIA # [id number] Performed By: #### B , 33521-4 #### [facility] CLIA [id number] [place] [address] 06-15-2023 CNPN Telephone ([facility]) ----- AISLINN WHEELER ([id number]) 1960 F Date Time Provider Department 06/15/23 [facility] During your visit today, we recorded the [...] mg by mouth three times daily. - HYDROcodone-Acetaminophen (NORCO) 7.5-325 mg per tablet [...] Encounter Status:Closed by VONNIE WILDER on 06/15/23 [facility] [place] 06-12-2023 CNPN Telephone ([facility]) ----- AISLINN WHEELER ([id number]) 1960 F Date Time Provider Department 06/12/23 LILIANA VELASCO [facility] During your visit today, we recorded the following information about you: Liliana Velasco RN 06/12/2023 8:56 AM Signed Received call from RN at Dr. Sara Augustine ([phone]) office (endocrinology) regarding clearance for upcoming surgery [...] Sara sánchez CNP received and scanned into [employer] to view. Allergies As of Date: 06/12/2023 [...] mg by mouth three times daily. - HYDROcodone-Acetaminophen (NORCO) 7.5-325 mg per tablet [...] Encounter Status:Closed by LILIANA VELASCO on 06/12/23 [facility] C Urineon 06-10-2023 Bacteria identified Cx Nom (U) Microbiology PROCEDURE: Urine Culture [R1] SOURCE: U CleanCatch BODY SITE: COLLECTED DATE/TIME: 06/08/2023 14:50 EDT RECEIVED DATE/TIME: 06/08/2023 19:41 EDT START DATE/TIME: 06/08/2023 19:41 EDT FREE TEXT SOURCE: CATALINA VIRGEN, HEIDY ARNOLD PA-C, HEIDY Rodriguez FINAL REPORTS Final Report [] Verified Date/Time: 06/10/2023 09:50 EDT >100,000 cfu/ml Escherichia coli SUSCEPTIBILITY RESULTS __ LEGEND: S=Susceptible, N/R=Not Reported, Blank=Data not available, or drug not advisable or tested, I=Intermediate, ESBL=Extended spectrum beta-lactamase, R=Resistant, TFG=Thymidine-dependent strain, VINEET=Beta-lactamase positive, LOCO=mcg/m;(mg/L), S*=Predicted susceptible interp, R*=Predicted resistant interp EC Antibiotic LOCO Dilutn LOCO Interp Amikacin [...] Locations R1: This test was performed at: [facility], [address] [place] [address], [phone] , [facility] Comment on above: Performed By: #### 2 [id number] #### [facility] [address] [place] [address] 06-09-2023 [facility] Telephone ([facility]) ----- AISLINN WHEELER ([id number]) 1960 F Date Time Provider Department 06/09/23 TAURUS BALLARDRaquel During your visit today, we recorded the following information about you: Derik Fernandez 06/09/2023 3:31 PM Signed Lvm on patient's phone inquiring if she kept her 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 - HYDROcodone-Acetaminophen (NORCO) 7.5-325 mg per tablet [...] Encounter Status:Closed by DERIK FERNANDEZ on 06/09/23 [facility] Glucose - FINGER STICKon Glucose [Mass/Vol] 436 mg/dL Valuation App Other Consent for Procedure/Surger yon 05-22-2023 Consent for Procedure/Surgery [id number]: 127 Normal [facility] Consent for Treatmenton Consent for Treatment [id number]#1.00CD:12 7 Normal [facility] Inpatient Patient Summaryon 05-22-2023 Inpatient Patient Summary [place] [id number] Clinical Summary Person Information Name: AISLINN WHEELER Age: 63 Years : 1960 Sex: Female PCP: AGUSTO OLMSTEAD CNP Marital Status: Race: White Ethnicity: Non- or Language: [place] Citizen Visit Id: Visit Reason: MIXED URINARY INCONTINENCE Speciality: Acuity: Enc Type: Outpatient Med Service: Surgery Arrival: 05/22/2023 09:41:57 Discharge: Dispo Type: [facility] [id number] Provider Notes: Diagnosis: Feeling of incomplete bladder [...] Immunizations Documented This Visit Final Med List: acetaminophen-hydrocodone (acetaminophen-hydrocodon e 325 mg-7.5 mg oral tablet) amlodipine (amLODIPine [...] Address: When: Lisa Porras [address] [place] [address] [phone] Business (1) [address], [place] [address], [facility] [address] [place] [phone] Business (1) Comments: Office to schedule follow up in 1 month with PVR Patient Education Information: EU - Cystoscopy with Botox Injection Discharge Instructions (CUSTOM) Normal [facility] IntraOperative Documentson 1 IntraOperative Documents [id number]#1.00CD: 127 Normal [facility] Main OR Intraoperative Recor don 05-22-2023 Main OR Intraoperative Record IntraOp Document Type FTURO Summary Primary Physician: Lisa Porras MD Finalized Date/Time: 05/22/23 11:29:32 Pt. Name: AISLINN WHEELER Ashok /Sex: 1960 Female Med Rec #: [id number] Physician: Lisa Porras MD Financial #: [id number] Pt. Type: O Room/Bed: / Admit/Disch: 05/22/23 09:41:57 - Institution: Case Times FTURO Entry 1 Patient Times In Room 05/22/23 11:15:00 Out Room 05/22/23 11:30:00 Procedure Times Start 05/22/23 11:22:00 Stop 05/22/23 11:26:00 Anesthesia Times Last Modified By: Katya LE, Marilee Feldman 05/22/23 11:26:29 General Comments: BOTOX 100 UNITS LOT#: [id number] , EXP DATE: 09/2025 -Jessica BLANCO RN Case Attendance FTURO Entry 1 Entry 2 Entry 3 Case Attendee Vern TAVERAS, Lisa Blanco RN, Marilee Solano CST, Cammie Feldman Role Performed Surgeon - Primary Skull Grinder - Primary Scrub - Primary Time In [...] Blanco RN 05/22/23 11:29 Normal [facility] Main OR Preoperative Recordo n 05-22-2023 Main OR Preoperative Record Holding Area Document Type FTURO Summary Primary Physician: Lisa Porras MD Finalized Date/Time: 05/22/23 10:32:24 Pt. Name: AISLINN WHEELER D.O.B./Sex: 1960 Female Med Rec #: [id number] Physician: Lisa Porras MD Financial #: [id number] Pt. Type: O Room/Bed: / Admit/Disch: 05/22/23 [...] By: Cammie Mcpherson RN 05/22/23 10:32 Normal [facility] Operative Reporton Operative Report Patient: BARBARA WHEELER Age: 63 years Sex: Female : 1960 Associated Diagnoses: None Author: Lisa Porras MD Procedure Operative Information Details: Date/ Time: 05/22/2023 11:29:00. Pre-Op Dx: Feeling of incomplete bladder emptying (RZN62-FU R39.14, Discharge, Medical), Mixed incontinence (LEX50-AO N39.46, Discharge, Medical), Urinary leakage (SOV16-SX R32, Discharge, Medical). Post-Op Dx: Same. Anesthesia [...] in the remote past). Normal [facility] Comment on above: Result Comment: Elec tronically Signed By: Lisa Porras MD.\.br\Date and Time Signed: 05/22/23 11:30 EDT Outpatient Surgery Discharge Instructionon 05-22-2023 Outpatient Surgery Discharge Instruction [place] [id number] Patient Discharge Instructions PERSON INFORMATION Name: AISLINN WHEELER Date of : 1960 Current Date: 05/22/2023 11:29:02 PHYSICIANS Admitting Physician: Lisa Porras MD. Comment: Discharge Diagnosis: Feeling of incomplete bladder emptying; Mixed incontinence; Urinary leakage LIAMAISLINN has been given the following list of follow-up instructions, prescriptions, and patient education materials: IF UNABLE TO CONTACT YOUR PHYSICIAN AND YOU FEEL IT IS AN EMERGENCY, GO TO THE NEAREST EMERGENCY ROOM OR CALL 911 Follow up: With: Address: When: Lisa Porras [address] [place] [address] [phone] Business (1) [address] [place] [address] [place], [address] [address] [phone] Business (1) Comments: Office to schedule follow [...] when discharge instructions were given 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ature ___ Date Clinican/Nurse Signature Date You may receive a survey from Claire Rangel asking you to rate your care experience. Your feedback is important and will help us understand what we do well and how we can improve the quality of care we provide to you, your loved ones and our community. It?s an honor to serve you. Thank you for choosing [facility] Normal [facility] Consultation Noteon 05-19-20 Consultation Note [id number]#1.00CD:12 7 Normal [facility] A1C HEMOGLOBINon 05-18-2023 HbA1c (Bld) [Mass fraction] 14.0 % Valuation App Other [facility] 05-18-2023 [facility] Telephone ([facility]) ----- AISLINN WHEELER ([id number]) 1960 F Date Time Provider Department 05/18/23 TAURUS BALLARDRaquel During your visit today, we recorded the following information about you: Agusto Faulkner 05/18/2023 1:01 PM Signed Consult notes sent back to Dr. Lisa Porras , phone [phone]. From Dr. Ballard office. Allergies As of [...] mg by mouth three times daily. - HYDROcodone-Acetaminophen (NORCO) 7.5-325 mg per tablet [...] Encounter Status:Closed by DERIK FERNANDEZ on 06/09/23 [facility] Glucose - FINGER STICKon Glucose [Mass/Vol] 429 mg/dL Valuation App Other HbA1c (Bld) [Mass fraction]o n 05-18-2023 A1C HEMOGLOBIN Vertro Other CNOVon 05-17-2023 CNOV Office Visit (URFHR) ----- AISLINN WHEELER ([id number]) 1960 F Date Time Provider Department 05/17/23 1:10 PM TAURUS BALLARD URR During your visit today, we recorded the following information about you: Temperature Pulse Blood pressure Weight 97.5 degrees 70/minute 172/81 60.1 kg Taurus Ballard MD 05/17/2023 1:35 PM Signed [facility] FOLLOW-UP PATIENT HISTORY AND PHYSICAL EXAM PATIENT INFO: Aislinn Wheeler 63 year old REFERRING M.D.: No referring provider defined for this encounter. CHIEF COMPLAINT: Cystic Bosniak 2F lesion, ANATOLIY HISTORY: Aislinn Wheeler is a 63 yr old female with a hx of urinary incontinence, uncontrolled DM, and severe urinary retention. Had b/l hydronephrosis and ANATOLIY which resolved with valerio catheter placement. Pt followed with Dr. Espinosa and Alicia Pablo. MRI showed a bosniak 2F lesion CT 05/10/2023- left lower pole cystic lesion measuring 9.4 x 6.8 cm rotating the kidney RBUS 05/11/23- 8.7 x 8.2x 7.1 cystic lesion Pt reports left flank pain when bending or moving. Had cysto/UDS with Dr. Espinosa 03/01/2021 UDS: No detrusor function on voiding- [...] 1.92 01/19/[address] scan (outside records) Mytonomy 09/28/21 IMPRESSION: Since the prior CT scan [...] b/l hydronephrosis and ANATOLIY which resolved with valerio catheter placement. Pt followed with Dr. Espinosa and Alicia Pablo. MRI showed a bosniak [...] other structures) (more content not included)... Normal [facility] C Urineon 05-13-2023 Bacteria identified Cx Nom (U) Microbiology PROCEDURE: Urine Culture [R1] SOURCE: U CleanCatch BODY SITE: COLLECTED DATE/TIME: 05/11/2023 11:49 EDT RECEIVED DATE/TIME: 05/11/2023 18:32 EDT START DATE/TIME: 05/11/2023 18:32 EDT FREE TEXT SOURCE: HEIDY ARNOLD PA-C, PA-C, HEIDY Rodriguez FINAL REPORTS Final Report [] Verified Date/Time: 05/13/2023 11:12 EDT >100,000 cfu/ml Escherichia coli SUSCEPTIBILITY RESULTS __ LEGEND: S=Susceptible, N/R=Not Reported, Blank=Data not available, or drug not advisable or tested, I=Intermediate, ESBL=Extended spectrum beta-lactamase, R=Resistant, TFG=Thymidine-dependent strain, VINEET=Beta-lactamase positive, LOCO=mcg/m;(mg/L), S*=Predicted susceptible interp, R*=Predicted resistant interp EC Antibiotic LOCO Dilutn LOCO Interp Amikacin [...] Locations R1: This test was performed at: [facility], [address] [place] [address], [address] Comment on above: Performed By: #### 2 [id number] #### [facility] [address] [place] [address] Physician Referralon 023 Physician Referral [id number]#1.00CD:127 PATIENT IS SCHEDULED 05/17/2023 [facility] Consultation Noteon 05-04-20 23 Consultation Note [id number]#1.00CD:127 [facility] Insurance Correspondenceon 0 05-04-2023 Insurance Correspondence [id number]#1.00CD:1 27 [facility] Urology Office/Clinic Noteon 05-04-2023 Urology Office/Clinic [...] mass on Kidney was not cancerous. However rail car repairman told her she has kidney cancer. Denies [...] PSH lap cholecystectomy, open hysterectomy -Continues with rail car repairman for CKD3 1. Renal cyst (N28.1: Cyst [...] pt to tertiary center, Dr. Ballard at [facility] for evaluation of robotic left cyst decortication -Pt states rail car repairman told her she has cancer. 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 Ordered: [id number] Measure Post Void residual urine and/or bladder capacity by US- non-imaging Urnls Dip Stick Auto w/o Microscopy POC 92348 2. Mixed incontinence (N39.46: Mixed incontinence) Pt [...] (more content not included)... Normal [facility] Urnls Dip Stick Auto w/o Microscopy POC 99754 Your Care Team Attending Physician - Lisa Porras MD Primary Care Physician - AGUSTO OLMSTEAD CNP This Is Your Medications List cephalexin (Keflex 500 mg Cap) estradiol topical (Estrace 0.1 mg/g Cream) trospium (trospium 20 mg oral tablet) Contact prescribing physician if questions or concerns acetaminophen-hydrocodone (acetaminophen-hydrocodon e 325 mg-7.5 mg oral tablet) amlodipine (amLODIPine [...] one day prior to procedure Pickup at [facility] New estradiol topical (Estrace 0.1 mg/ g Cream) See instructions Refills: 3 apply pea size amount to urethra/ inner vagina 3x/ week x 1 month, then 2x/ week for maintainence Pickup at [facility] Unchanged trospium (trospium 20 mg oral tablet) 1 Tablets By Mouth Every day Unchanged acetaminophen-hydrocodone (acetaminophen-hydrocodon e 325 mg-7.5 mg oral tablet) Contact prescribing [...] physician if questions or concerns Pharmacy Information [facility]: [address] [place], [place] [phone] Test Results Urnls Dip Stick Auto w/o Microscopy POC 96770 (05/03/2023) Bilirubin Urine Dipstick - Negative Blood Urine Dipstick - Trace-intact Glucose Urine Dipstick - 3+ 1000 mg/dl Ketones Urine Dipstick - Negative Leukocytes Urine Dipstick - Negative Nitrite Urine Dipstick - Negative Protein Urine Dipstick - Trace Specific [place] Urine Dipstick - 1.015 Urine Appearance Urine [...] (more content not included)... Normal [facility] Patient Educationon 05-03-20 Patient Education Obstetrics and Gynec ology Kegel Exercises Kegel exercises can help strengthen [...] provider. Document Revised: 12/16/2021 Document Reviewed: 12/16/2021 [employer] Patient Education ? 2022 [employer] Normal [facility] [place] 05-03-2023 Screens [id number]#[id number]:1 27 Normal [facility] [...] EDT >100,000 cfu/ml Escherichia coli SUSCEPTIBILITY RESULTS __ LEGEND: S=Susceptible, N/R=Not Reported, Blank=Data not available, or drug not advisable or tested, I=Intermediate, ESBL=Extended spectrum beta-lactamase, R=Resistant, TFG=Thymidine-dependent strain, VINEET=Beta-lactamase positive, LOCO=mcg/m;(mg/L), S*=Predicted susceptible interp, R*=Predicted resistant interp EC Antibiotic LOCO Dilutn LOCO Interp Amikacin [...] Locations R1: This test was performed at: [facility], [address] [place] [address], [address] , , [facility] Comment on above: Performed By: #### 2 [id number] ####[facility] [address] [place] [address] Ambulatory Visit Summaryon 0 04-18-2023 Ambulatory Visit Summary AISLINN WHEELER :1960 Visit Date:04/18/2023 Ambulatory Visit Instructions Your Diagnosis Urinary tract infection Your Care Team Attending Physician - Lisa Porras MD Primary Care Physician - AGUSTO OLMSTEAD CNP This Is Your Medications List acetaminophen-hydrocodone (acetaminophen-hydrocodon e 325 mg-7.5 mg oral tablet) amlodipine (amLODIPine [...] Lisa Porras MD Where: [facility] [place] 02-23-2023 Screens [id number]#1.00CD:1 27 [facility] Ambulatory Visit Summaryon 0 02-22-2023 Ambulatory Visit Summary AISLINN WHEELER :1960 Visit Date:02/22/2023 Ambulatory Visit Instructions Your Diagnosis Renal mass Renal cyst Mixed incontinence Feeling of incomplete bladder emptying Glucosuria Tests Performed Urnls Dip Stick Auto w/o Microscopy POC 55825 Your Care Team Attending Physician - Lisa Porras MD Primary Care Physician - AGUSTO OLMSTEAD CNP This Is Your Medications List trospium (trospium 20 mg oral tablet) Contact prescribing physician if questions or concerns acetaminophen-hydrocodone (acetaminophen-hydrocodon e 325 mg-7.5 mg oral tablet) amlodipine (amLODIPine [...] TAVERAS, Lisa Montiel Where: [facility] Patient Educationon 02-23-20 Patient Education Obstetrics and Gynec ology Kegel Exercises Kegel exercises can help strengthen [...] provider. Document Revised: 12/16/2021 Document Reviewed: 12/16/2021 [employer] Patient Education ? 2022 [employer] [facility] Urology Office/Clinic Noteon 02-22-2023 Urology Office/Clinic Note [...] PSH lap cholecystectomy, open hysterectomy -Continues with rail car repairman after referred last visit 1. Renal mass [...] septations without enhancement. Bosniak 2 cyst. Malrotated kidenteresa Endorses L flank pain Again discussed mgmt [...] and the (more content not included)... Normal [facility] Comment on above: Result Comment: Elec tronically Signed By: Lisa Porras MD.br\Date and Time Signed: 02/22/23 10:14 EDT\.br\Electronically Co-Signed By: Marilee [place].br\Date and Time Co-Signed: 02/22/23 09:36 EDT Lab Reportson 02-20-2023 Lab Reports [id number]#1.00CD:12 7 Normal [facility] RAD - CT Reporton 02-20-2023 RAD - CT Report [id number]#1.00CD:127 Normal [facility] Physician Orderon 02-01-2023 Physician Order [id number]#1.00CD:127 Normal [facility] Consultation Noteon 01-08-20 Consultation Note [id number]#1.00CD:12 7 Normal [facility] XR FOOT LT MIN 3 VIEWSon XR FOOT LT MIN 3 VIEWS Normal [facility] MG MAMM SCREEN 3D GURJIT CADon 12-28-2022 MG MAMM SCREEN 3D GURJIT CAD Normal [facility] XR DEXA BONE DENSITYon 12-28 XR DEXA BONE DENSITY Normal [facility] NM STRESS/REST MULTIon 12-15 NM STRESS/REST MULTI Normal [facility] XR FOOT LT MIN 3 VIEWSon XR FOOT LT MIN 3 VIEWS Normal [facility] Physician Referralon 023 Physician Referral [id number]#[id number]:12 7 Normal [facility] CT FOOT LT WO CONon 10-28-19 CT FOOT LT WO CON Normal [facility] XR FOOT LT MIN 3 VIEWSon XR FOOT LT MIN 3 VIEWS Normal [facility] XR FOOT LT MIN 3 VIEWSon XR FOOT LT MIN 3 VIEWS Normal [facility] XR FOOT LT MIN 3 VIEWSon XR FOOT LT MIN 3 VIEWS Normal [facility] XR FOOT LT MIN 3 VIEWSon XR FOOT LT MIN 3 VIEWS Normal [facility] XR FOOT LT MIN 3 VIEWSon XR FOOT LT MIN 3 VIEWS Normal [facility] US KIDNEYSon 09-15-2022 US KIDNEYS Normal [facility] XR FOOT LT MIN 3 VIEWSon XR FOOT LT MIN 3 VIEWS Normal [facility] XR FOOT LT MIN 3 VIEWSon XR FOOT LT MIN 3 VIEWS Normal [facility] XR FOOT LT MIN 3 VIEWSon XR FOOT LT MIN 3 VIEWS Normal [facility] CBC AUTO DIFFon 08-03-2022 BASO # 0.0 103/ul Normal 0.0-0.1 [facility] Comment on above: Performed By: #### C BC ####[facility] [address] [place] [id number]. Ricardo Rocha Basophils/100 WBC (Bld) 0.5 % Normal 0.2-2.0 [facility] Comment on above: Performed By: #### C BC ####[facility] [address] [place] [address]Dr. Ricardo Rocha EO # 0.1 103/ul Normal 0.0-0.7 [facility] Comment on above: Performed By: #### C BC ####[facility] [address] [place] [address]Dr. Ricardo Rocha Eosinophils/100 WBC (Bld) 1.2 % Normal 0.9-7.0 [facility] Comment on above: Performed By: #### C BC ####[facility] [address] [place] [address]Dr. Ricardo Rocha Erythrocyte distribution width (RBC) [Ratio] 15.0 % Normal 11.0-15.0 [facility] Comment on above: Performed By: #### C BC ####[facility] [address] [place] [address]Dr. Ricardo Rocha Hematocrit (Bld) [Volume fraction] 29.5 % Critically low 36.0-48.0 [facility] Comment on above: Performed By: #### C BC ####[facility] [address] [place] [address]Dr. Ricardo Rocha Hemoglobin (Bld) [Mass/Vol] 9.3 g/dL Critically low 12.0-16.0 [facility] Comment on above: Performed By: #### C BC ####[facility] [address] [place] [phone]. Nanomarcial Aj IG # 0.04 10e3/ul Critically high 0.00-0.03 [facility] Comment on above: Performed By: #### C BC ####[facility] [address] [place] [phone]. Ricardo Rocha IG % 0.5 % Normal 0.0-0.5 [facility] Comment on above: Performed By: #### C BC ####[facility] [address] [place] [address]Dr. Ricardo Rocha LYMPH # 1.4 103/ul Normal 1.2-3.8 [facility] Comment on above: Performed By: #### C BC ####[facility] [address] [place] [address]Dr. Ricardo Rocha Lymphocytes/100 WBC (Bld) 17.2 % Critically low 20.5-60.0 [facility] Comment on above: Performed By: #### C BC ####[facility] [address] [place] [address]Dr. Ricardo Rocha MANUAL DIFF REQ NO Normal [facility] Comment on above: Performed By: #### C BC ####[facility] [address] [place] [phone]. Ricardo Rocha MCH (RBC) [Entitic mass] 25.2 pg Critically low 26.7-34.0 [facility] Comment on above: Performed By: #### C BC ####[facility] [address] [place] [address]Dr. Ricardo Rocha MCHC (RBC) [Mass/Vol] 31.5 g/dL Normal 29.9-35.2 [facility] Comment on above: Performed By: #### C BC ####[facility] [address] [place] [phone]. Ricardo Rocha MCV (RBC) [Entitic vol] 79.9 fL Critically low 81.0-99.0 [facility] Comment on above: Performed By: #### C BC ####[facility] [address] [place] [address]Dr. Ricardo Rocha MONO # 0.6 103/ul Normal 0.3-0.8 [facility] Comment on above: Performed By: #### C BC ####[facility] [address] [place] [address]Dr. Ricardo Rocha Monocytes/100 WBC (Bld) 7.6 % Normal 1.7-12.0 [facility] Comment on above: Performed By: #### C BC ####[facility] [address] [place] [address]Dr. Ricardo Rocha NEUT # 5.9 103/ul Normal 1.4-6.5 [facility] Comment on above: Performed By: #### C BC ####[facility] [address] [place] [address]Dr. Ricardo Rocha Neutrophils/100 WBC (Bld) 73.0 % Normal 43.0-75.0 [facility] Comment on above: Performed By: #### C BC ####[facility] [address] [place] [phone]. Ricardo Rocha Platelet mean volume (Bld) [Entitic vol] 11.4 fL Normal 9.5-13.5 [facility] Comment on above: Performed By: #### C BC ####[facility] [address] [place] [phone]. Ricardo Rocha PLT 253 103/ul Normal 150-450 [facility] Comment on above: Performed By: #### C BC ####[facility] [address] [place] [address]Dr. Ricardo Rocha RBC 3.69 106/ul Critically low 4.20-5.[address] [facility] Comment on above: Performed By: #### C BC ####[facility] [address] [place] [phone]. Ricardo Rocha WBC 8.0 103/ul Normal 4.0-11.0 [facility] Comment on above: Performed By: #### C BC ####[facility] [address] [place] [address]Dr. Ricardo Rocha CRPon 08-03-2022 CRP 3.1 mg/dL Critically high <=1.[address] [facility] Comment on above: Performed By: #### C RP, BMP, URIC ####[facility] [address] [place], [place] [address]Dr. Ricardo Rocha CULTURE BLOODon 08-03-2022 Microscopic examination of blood, culture Culture Observations: NO GROWTH AT 5 DAYS. Normal [facility] Comment on above: Performed By: #### B LDCX2 ####[facility] [address] [place], [place] [address]Dr. Ricardo Rocha Microscopic examination of blood, culture Culture Observations: NO GROWTH AT 5 DAYS. Normal [facility] Comment on above: Performed By: #### B LDCX1 ####[facility] [address] [place], [place] [address]Dr. Ricardo Rocha ER URINE PROFILEon 2 Bilirubin Ql (U) Negative Normal NEGATIVE [facility] Comment on above: Performed By: #### E RUR ####[facility] [address] [place], [place] [address]Dr. Ricardo Rocha Clarity (U) CLEAR Normal CLEAR [facility] Comment on above: Performed By: #### E RUR ####[facility] [address] [place], [place] [address]Dr. Ricardo Rocha Color (U) LT. YELLOW Normal YELLOW [facility] Comment on above: Performed By: #### E RUR ####[facility] [address] [place], [place] [address]Dr. Ricardo Rocha ERUAHD A micrscopic examina tion will be performed if indicated. Normal [facility] Comment on above: Performed By: #### E RUR ####[facility] Tsmyjeptjj[address] [place], [place] [address]Dr. Ricardo Rocha Glucose Ql (U) 100 mg/dl Abnormal NEGATIVE The [facility] Comment on above: Performed By: #### E RUR ####[facility] Flpreayhmv7916 [place] [address]Dr. Ricardo Rocha Hemoglobin Ql (U) Negative Normal NEGATIVE The [facility] Comment on above: Performed By: #### E RUR ####[facility] Oqmrrqprmk[address] [place], [place] [address]Dr. Ricardo Rocha Ketones Ql (U) Negative Normal NEGATIVE The [facility] Comment on above: Performed By: #### E RUR ####[facility] Ztjgxpxvir[address] [place], [place] [address]Dr. Ricardo Rocha LEUKOCYTES Negative Normal NEGATIVE The [facility] Comment on above: Performed By: #### E RUR ####[facility] Kpxrovrjub[address] [place], [place] [address]Dr. Ricardo Rocha Nitrite Ql (U) Negative Normal NEGATIVE The [facility] Comment on above: Performed By: #### E RUR ####[facility] Hobydoktek[address] [place], [place] [address]Dr. Ricardo Rocha pH (U) 6.0 [pH] Normal 5-9 The [facility] Comment on above: Performed By: #### E RUR ####[facility] Bpktdmxxhv[address] [place], [place] [address]Dr. Ricardo Rocha SPEC GRAVITY 1.010 Normal 1.005-<=1.0 25 [facility] Comment on above: Performed By: #### E RUR ####[facility] Rhowstyskg[address] [place], [place] [address]Dr. Ricardo Rocha UA PROTEIN Negative Normal NEGATIVE/ TRACE The [facility] Comment on above: Performed By: #### E RUR ####[facility] Gonnmkxhyf[address] [place], [place] [address]Dr. Ricardo Aj UR MICRO IND NOT INDICATED Normal The [facility] Comment on above: Performed By: #### E RUR ####[facility] Vsrhcenpin404[address] [place], [place] [address]Dr. Ricardo Aj Urobilinogen Qn (U) 0.2 {Madeleine'U}/dL Normal 0.2 - 1. 0 [facility] Comment on above: Performed By: #### E RUR ####[facility] Zfyzfekpsd7465 [place] [address]Dr. Ricardo Rocha LACTATE/LACTIC ACIDon 2021 Lactate [Moles/Vol] 0.5 mmol/L Normal 0.4-1.9 [facility] Comment on above: Performed By: #### L ACT ####[facility] Tifxcznzrb9[address] [place], [place] [address]Dr. Ricardo Rocha PROF CHEM 8 (BAS METB)on Anion gap [Moles/Vol] 12.9 mmol/L Normal [facility] Comment on above: Performed By: #### C RP, BMP, URIC ####[facility] Edktmioeib3[address] [place], [place] [address]Dr. Ricardo Rocha Calcium [Mass/Vol] 9.0 mg/dL Normal 8.5-10.1 [facility] Comment on above: Performed By: #### C RP, BMP, URIC ####[facility] Qthboqdztt696[address] [place], [place] [address]Dr. Ricardo Rocha Chloride [Moles/Vol] 102 mmol/L Normal 98-107 [facility] Comment on above: Performed By: #### C RP, BMP, URIC ####[facility] Fxdtecapyl59[address] [place], [place] [address]Dr. Ricardo Rocha CO2 [Moles/Vol] 23.9 mmol/L Normal 21.0-32.0 [facility] Comment on above: Performed By: #### C RP, BMP, URIC ####[facility] Zidscckuef[address] [place], [place] [address]Dr. Ricardo Rocha Creatinine [Mass/Vol] 1.36 mg/dL Critically high 0.55-1.02 [facility] Comment on above: Performed By: #### C RP, BMP, URIC ####[facility] Vbpvgthfdl[address] [place], [place] [address]Dr. Ricardo Rocha EGFR-AF EGYPTIAN 47 mL/min/1.73m2 Critically low >=60 [facility] Comment on above: Performed By: #### C RP, BMP, URIC ####[facility] Vrmibndgxn90[address] [place] [phone]. Ricardo Rocha EGFR-NON AF EGYPTIAN 39 mL/min/1.73m2 Critically low >=60 [facility] Comment on above: Performed By: #### C RP, BMP, URIC ####[facility] Mxcexvkyug9963 [place] [phone]. Riacrdo Rocha Glucose [Mass/Vol] 125 mg/dL Critically high 74-106 [facility] Comment on above: Performed By: #### C RP, BMP, URIC ####[facility] Uzljuvvsxq3117 [place] [phone]. Ricardo Rocha Potassium [Moles/Vol] 4.8 mmol/L Normal 3.5-5.1 [facility] Comment on above: Performed By: #### C RP, BMP, URIC ####[facility] Kepmtjoali2[address] [place] [address]Dr. Ricardo Rocha Sodium [Moles/Vol] 134 mmol/L Critically low 136-145 [facility] Comment on above: Performed By: #### C RP, BMP, URIC ####[facility] Pzmahgwsdc[address] [place] [address]Dr. Ricardo Rocha Urea nitrogen [Mass/Vol] 22.0 mg/dL Critically high 7.0-18.0 [facility] Comment on above: Performed By: #### C RP, BMP, URIC ####[facility] Fohlxlibhv0493 [place] [address]Dr. Ricardo Aj Urea nitrogen/Creatinine [Mass ratio] 16.2 mg/mg Normal [facility] Comment on above: Performed By: #### C RP, BMP, URIC ####[facility] Pkltqhnotk2298 [place] [phone]. Nanomarcial Rocha SED RATE WESTERGRENon 2021 SED RATE 95 mm/hr Critically high <=[address] [facility] Comment on above: Performed By: #### S EDR ####[facility] Dtbxhaazds2497 [place] [address]Dr. Ricardo Aj URIC ACID SERUMon 08-03-2022 Urate [Mass/Vol] 4.7 mg/dL Normal 2.6-6.0 The [facility] Comment on above: Performed By: #### C RP, BMP, URIC ####[facility] Rvydpaeubd5315 [place] [address]Dr. Ricardo Rocha XR FOOT LT MIN 3 VIEWSon XR FOOT LT MIN 3 VIEWS Normal The [facility] PROF CHEM 8 (BAS METB)on Anion gap [Moles/Vol] 13.8 mmol/L Normal [facility] Comment on above: Performed By: #### B MP ####[facility] Lcxqgxcvzv8488 [place] [address]Dr. Ricardo Rocha Calcium [Mass/Vol] 8.9 mg/dL Normal 8.5-10.1 [facility] Comment on above: Performed By: #### B MP ####[facility] Sdktogtgyj1897 [place] [address]Dr. Ricardo Rocha Chloride [Moles/Vol] 101 mmol/L Normal 98-107 [facility] Comment on above: Performed By: #### B MP ####[facility] Kbqzebfywt6202 [place] [address]Dr. Ricardo Rocha CO2 [Moles/Vol] 22.8 mmol/L Normal 21.0-32.0 The [facility] Comment on above: Performed By: #### B MP ####[facility] Pqxxmsxrow9529 [place] [address]Dr. Ricardo Rocha Creatinine [Mass/Vol] 1.43 mg/dL Critically high 0.55-1.02 [facility] Comment on above: Performed By: #### B MP ####[facility] Szncwmmicr4669 [place] [phone]. Ricardo Rocha EGFR-AF EGYPTIAN 45 mL/min/1.73m2 Critically low >=60 [facility] Comment on above: Performed By: #### B MP ####[facility] Fkovbkytsz3661 [place] [address]Dr. Ricardo Rocha EGFR-NON AF EGYPTIAN 37 mL/min/1.73m2 Critically low >=60 [facility] Comment on above: Performed By: #### B MP ####[facility] Xwxjtsmqub2877 [place] [phone]. Ricardo Rocha Glucose [Mass/Vol] 279 mg/dL Critically high 74-106 [facility] Comment on above: Performed By: #### B MP ####[facility] Whduxlqauc0435 [place] [phone]. Ricardo Rocha Potassium [Moles/Vol] 4.6 mmol/L Normal 3.5-5.1 [facility] Comment on above: Performed By: #### B MP ####[facility] Qjsgeddkwl6945 [place] [phone]. Ricardo Rocha Sodium [Moles/Vol] 133 mmol/L Critically low 136-145 [facility] Comment on above: Performed By: #### B MP ####[facility] Znryzvqslq0426 [place] [phone]. Ricardo Rocha Urea nitrogen [Mass/Vol] 24.0 mg/dL Critically high 7.0-18.0 [facility] Comment on above: Performed By: #### B MP ####[facility] Wheixpuqej[address] [place], [place] [id number]. Ricardo Rocha Urea nitrogen/Creatinine [Mass ratio] 16.8 mg/mg Normal [facility] Comment on above: Performed By: #### B MP ####[facility] Evepqwgank7493 [place] [phone]. Ricardo Aj ACID FAST SMEAR AND CXon Acid Fast Culture Negative [facility] Comment on above: Result Comment: No a amilcar fast bacilli isolated after 6 weeks. Performed By: #### A FB ####[facility] Ybipzluxsc6798 [place] [phone]. Ricardo Aj Acid Fast Smear Negative Normal [facility] Comment on above: Performed By: #### A FB ####[facility] Zymasxpaww6234 [place] [phone]. Ricardo Rocha AFB Specimen Processing Direct Inoculation [facility] Comment on above: Performed By: #### A FB ####[facility] Owusmzdbee3953 [place] [phone]. Ricardo Rocha AF[employer] Specimen Processing Tissue Grinding Normal [facility] Comment on above: Performed By: #### A FB ####[facility] Wxpuuteoek3534 [place] [address]Dr. Ricardo Rocha FUNGAL CULTUREon 07-11-2022 Fungus (Mycology) Culture Final report Normal [facility] Comment on above: Performed By: #### C XFUN ####[facility] Lnkxinqojc405[address] [place], [place] [address]Dr. Ricardo Rocha Fungus Stain Final report Normal [facility] Comment on above: Performed By: #### C XFUN ####[facility] Hsasyfvklb74[address] [place], [place] [address]Dr. Ricardo Rocha Result 1 Comment Normal [facility] Comment on above: Result Comment: AAYUSH/ Calcofluor preparation: no fungus observed. Performed By: #### C XFUN ####[facility] Lmcmztbqdf5[address] [place], [place] [address]Dr. Ricardo Rocha Result Comment: No y east or mold isolated after 4 weeks. PROF CHEM 8 (BAS METB)on Anion gap [Moles/Vol] 15.1 mmol/L Normal [facility] Comment on above: Performed By: #### B MP ####[facility] Dhdigfjlga648[address] [place], [place] [address]Dr. Ricardo Rocha Calcium [Mass/Vol] 9.0 mg/dL Normal 8.5-10.1 [facility] Comment on above: Performed By: #### B MP ####[facility] Krtrahftlq972[address] [place], [place] [address]Dr. Ricardo Rocha Chloride [Moles/Vol] 101 mmol/L Normal 98-107 [facility] Comment on above: Performed By: #### B MP ####[facility] Tdcobvemoo506[address] [place], [place] [address]Dr. Ricardo Rocha CO2 [Moles/Vol] 18.5 mmol/L Critically low 21.0-32.0 [facility] Comment on above: Performed By: #### B MP ####[facility] Msoekuyeuz6984 [place] [address]Dr. Ricardo Rocha Creatinine [Mass/Vol] 2.05 mg/dL Critically high 0.55-1.02 [facility] Comment on above: Performed By: #### B MP ####[facility] Xzbauvtzaf5697 [place] [address]Dr. Nanomarcial Aj EGFR-AF EGYPTIAN 30 mL/min/1.73m2 Critically low >=60 [facility] Comment on above: Performed By: #### B MP ####[facility] Jqxgsffufu6188 [place] [address]Dr. Ricardo Rocha EGFR-NON AF EGYPTIAN 24 mL/min/1.73m2 Critically low >=60 [facility] Comment on above: Performed By: #### B MP ####[facility] Jorhhuljmh[address] [place], [place] [address]Dr. Ricardo Rocha Glucose [Mass/Vol] 134 mg/dL Critically high 74-106 [facility] Comment on above: Performed By: #### B MP ####[facility] Vzjlnakfwc[address] [place], [place] [address]Dr. Ricardo Rocha Potassium [Moles/Vol] 5.6 mmol/L Critically high 3.5-5.1 [facility] Comment on above: Performed By: #### B MP ####[facility] Iulpqwzawg58[address] [place], [place] [address]Dr. Ricardo Rocha Sodium [Moles/Vol] 129 mmol/L Critically low 136-145 [facility] Comment on above: Performed By: #### B MP ####[facility] Fmjnqdfdko426[address] [place], [place] [address]Dr. Ricardo Rocha Urea nitrogen [Mass/Vol] 57.0 mg/dL Critically high 7.0-18.0 [facility] Comment on above: Performed By: #### B MP ####[facility] Eizvojxvmd[address] [place], [place] [address]Dr. Ricardo Rocha Urea nitrogen/Creatinine [Mass ratio] 27.8 mg/mg Normal [facility] Comment on above: Performed By: #### B MP ####[facility] Jtwavyjrvm7046 [place] [address]Dr. Ricardo Rocha CBC AUTO DIFFon 07-06-2022 BASO # 0.0 103/ul Normal 0.0-0.1 [facility] Comment on above: Performed By: #### C BC ####[facility] Gkysolhsju326[address] [place], [place] [address]Dr. Nanomarcial Rocha Basophils/100 WBC (Bld) 0.6 % Normal 0.2-2.0 [facility] Comment on above: Performed By: #### C BC ####[facility] Etzqhkgdpa8[address] [place], [place] [address]Dr. Ricardo Rocha EO # 0.1 103/ul Normal 0.0-0.7 [facility] Comment on above: Performed By: #### C BC ####[facility] Abeqzllhve616[address] [place], [place] [address]Dr. Ricardo Rocha Eosinophils/100 WBC (Bld) 1.7 % Normal 0.9-7.0 [facility] Comment on above: Performed By: #### C BC ####[facility] Fpwnhhnpuv339[address] [place], [place] [address]Dr. Ricardo Aj Erythrocyte distribution width (RBC) [Ratio] 15.2 % Critically high 11.0-15.0 [facility] Comment on above: Performed By: #### C BC ####[facility] Pksgjtxtrh404[address] [place], [place] [address]Dr. Nanomarcial Rocha Hematocrit (Bld) [Volume fraction] 34.6 % Critically low 36.0-48.0 [facility] Comment on above: Performed By: #### C BC ####[facility] Ljblejcrpw206[address] [place], [place] [address]Dr. Ricardo Rocha Hemoglobin (Bld) [Mass/Vol] 10.5 g/dL Critically low 12.0-16.0 [facility] Comment on above: Performed By: #### C BC ####[facility] Kchnqhxkaa264[address] [place], [place] [address]Dr. Ricardo Rocha IG # 0.01 10e3/ul Normal 0.00-0.03 [facility] Comment on above: Performed By: #### C BC ####[facility] Nebymgyqsw9376 [place] [address]Dr. Ricardo Rocha IG % 0.2 % Normal 0.0-0.5 [facility] Comment on above: Performed By: #### C BC ####[facility] Ptasbzupzg9314 [place] [address]Dr. Ricardo Rocha LYMPH # 2.4 103/ul Normal 1.2-3.8 [facility] Comment on above: Performed By: #### C BC ####[facility] Nfczbisfnd99[address] [place], [place] [address]DrIrina Ricardo Rocha Lymphocytes/100 WBC (Bld) 44.4 % Normal 20.5-60.0 [facility] Comment on above: Performed By: #### C BC ####[facility] Vswzagfosr[address] [place], [place] [address]Dr. Ricardo Rocha MANUAL DIFF REQ NO Normal [facility] Comment on above: Performed By: #### C BC ####[facility] Gcnichtfvj3109 [place] [address]Dr. Ricardo Rocha MCH (RBC) [Entitic mass] 25.0 pg Critically low 26.7-34.0 [facility] Comment on above: Performed By: #### C BC ####[facility] Jeaspaswyt[address] [place], [place] [address]Dr. Ricardo Rocha MCHC (RBC) [Mass/Vol] 30.3 g/dL Normal 29.9-35.2 [facility] Comment on above: Performed By: #### C BC ####[facility] Ddsncjnnmz257[address] [place], [place] [address]DrIrina Ricardo Rocha MCV (RBC) [Entitic vol] 82.4 fL Normal 81.0-99.0 [facility] Comment on above: Performed By: #### C BC ####[facility] Fabrpjvkkb[address] [place], [place] [address]DrIrina Ricardo Aj MONO # 0.3 103/ul Normal 0.3-0.8 [facility] Comment on above: Performed By: #### C BC ####[facility] Ulmfjpwgye7336 [place] [address]Dr. Ricardo Rocha Monocytes/100 WBC (Bld) 5.1 % Normal 1.7-12.0 [facility] Comment on above: Performed By: #### C BC ####[facility] Xcfhzjtfzm1313 [place] [phone]. Ricardo Rocha NEUT # 2.5 103/ul Normal 1.4-6.5 [facility] Comment on above: Performed By: #### C BC ####[facility] Wxyuhulpxq5440 [place] [address]Dr. Ricardo Rocha Neutrophils/100 WBC (Bld) 48.0 % Normal 43.0-75.0 [facility] Comment on above: Performed By: #### C BC ####[facility] Zmkkglxlhu3172 [place] [address]Dr. Ricardo Rocha Platelet mean volume (Bld) [Entitic vol] 10.7 fL Normal 9.5-13.5 [facility] Comment on above: Performed By: #### C BC ####[facility] Zauniyvgfg[address] [place], [place] [address]Dr. Ricardo Rocha PLT 261 103/ul Normal 150-450 [facility] Comment on above: Performed By: #### C BC ####[facility] Oahlvhwfoz8872 [place] [address]Dr. Ricardo Rocha RBC 4.20 106/ul Normal 4.20-5.40 [facility] Comment on above: Performed By: #### C BC ####[facility] Kedprdkgtr3091 [place] [phone]. Ricardo Rocha WBC 5.3 103/ul Normal 4.0-11.0 [facility] Comment on above: Performed By: #### C BC ####[facility] Qoddyzbwji2067 [place] [phone]. Ricardo Rocha GLYCOHEMOGLOBIN A1Con 2021 ADA RECOMMENDATION SEE BELOW Normal [facility] Comment on above: Result Comment: ADA RECOMMENDED LIMIT 4.0 - 6.0 ADA THERAPEUTIC TARGET < 7.0 ACTION SUGGESTED > 7.0 Performed By: #### A 1C ####[facility] Yqjeiupvvk7189 [place] [phone]. Ricardo Rocha Glucose [Mass/Vol] 289 mg/dL Normal [facility] Comment on above: Performed By: #### A 1C ####[facility] Hklzwpgnof8251 [place] [address]Dr. Ricardo Aj HbA1c (Bld) [Mass fraction] 11.7 % Critically high 4.5-6.2 [facility] Comment on above: Performed By: #### A 1C ####[facility] Sxamoxxypp4249 [place] [address]Dr. Nanomarcial Rocha LIPID PROFILEon 07-06-2022 CHOL-HDL RATIO NORM SEE BELOW Normal [facility] Comment on above: Result Comment: 3.3 - 4.4 LOW RISK 4.4 - 7.1 AVERAGE RISK 7.1 - 11.0 MODERATE RISK >11.0 HIGH RISK Performed By: #### T SH, CMP, LIPID ####[facility] Txuqihgfxa9473 [place] [phone]. Ricardo Rocha Cholesterol [Mass/Vol] 284 mg/dL Critically high <=200 [facility] Comment on above: Performed By: #### T SH, CMP, LIPID ####[facility] Horpwlffhz7391 [place] [phone]. Ricardo Rocha Cholesterol in HDL [Mass/Vol] 40 mg/dL Normal 40-60 [facility] Comment on above: Performed By: #### T SH, CMP, LIPID ####[facility] Iymsxnocqj8339 [place] [phone]. Ricardo Rocha Cholesterol in LDL [Mass/Vol] 167.8 mg/dL Normal [facility] Comment on above: Performed By: #### T SH, CMP, LIPID ####[facility] Czlpkusnxs3635 [place] [phone]. Ricardo Rocha Cholesterol.total/Cho lesterol in HDL [Mass ratio] 7.1 {ratio} Normal [facility] Comment on above: Performed By: #### T SH, CMP, LIPID ####[facility] Aozppctozo4563 [place] [address]Dr. Ricardo Rocha HDL NORMAL > or = 60 mg/dl - LO W CARDIOVASCULAR RISK <40 mg/dl - HIGH CARDIOVASCULAR RISK Normal [facility] Comment on above: Performed By: #### T SH, CMP, LIPID ####[facility] Smkgmmojlw3705 [place] [address]Dr. Ricardo Rocha LDL CALC NORMAL SEE BELOW Normal [facility] Comment on above: Result Comment: <100 mg/dl OPTIMAL 100 - 129 mg/dl NEAR OR ABOVE OPTIMAL 130 - 159 mg/dl BORDERLINE HIGH 160 - 189 mg/dl HIGH >190 mg/dl VERY HIGH Performed By: #### T SH, CMP, LIPID ####[facility] Rsfdjydogr0703 [place] [address]Dr. Ricardo Rocha Triglyceride [Mass/Vol] 381 mg/dL Critically high <=150 [facility] Comment on above: Performed By: #### T SH, CMP, LIPID ####[facility] Hxdrtpfarc9909 [place] [address]Dr. Ricardo Rocha VLDL CALC 76.2 mg/dL Normal [facility] Comment on above: Performed By: #### T SH, CMP, LIPID ####[facility] Nlnecprdjv1906 [place] [address]Dr. Ricardo Rocha MICROALBUMIN, RAND URon 11- mALB <1.3 Normal <=30.0 [facility] Comment on above: Performed By: #### M ALBR ####[facility] Xvxmqrqgqx2849 [place] [address]Dr. Ricrado Rocha PROF 14(COMP METB)on 022 Albumin [Mass/Vol] 3.3 g/dL Critically low 3.4-5.0 [facility] Comment on above: Performed By: #### T SH, CMP, LIPID ####[facility] Iruvursyis3671 [place] [address]Dr. Ricardo Rocha Albumin/Globulin [Mass ratio] 0.5 {ratio} Normal [facility] Comment on above: Performed By: #### T SH, CMP, LIPID ####[facility] Qhofoelcjm0728 [place] [address]Dr. Ricardo Aj ALP [Catalytic activity/Vol] 129 U/L Critically high 46-116 [facility] Comment on above: Performed By: #### T SH, CMP, LIPID ####[facility] Gdjumwhoso6189 [place] [address]Dr. Ricardo Rocha ALT [Catalytic activity/Vol] 22 U/L Normal 14-59 [facility] Comment on above: Performed By: #### T SH, CMP, LIPID ####[facility] Uoghplqaue9795 [place] [address]Dr. Ricardo Rocha Anion gap [Moles/Vol] 16.1 mmol/L Normal [facility] Comment on above: Performed By: #### T SH, CMP, LIPID ####[facility] Quwqxstrnf3277 [place] [address]Dr. Ricardo Rocha AST [Catalytic activity/Vol] 22 U/L Normal 15-37 [facility] Comment on above: Performed By: #### T SH, CMP, LIPID ####[facility] Yxtblfxybx[address] [place], [place] [address]Dr. Ricardo Rocha Bilirubin [Mass/Vol] 0.2 mg/dL Normal 0.2-1.0 [facility] Comment on above: Performed By: #### T SH, CMP, LIPID ####[facility] Uexxykcnzv3915 [place] [address]Dr. Ricardo Rocha Calcium [Mass/Vol] 9.4 mg/dL Normal 8.5-10.1 [facility] Comment on above: Performed By: #### T SH, CMP, LIPID ####[facility] Bvdbqnrgzw8610 [place] [address]Dr. Ricardo Rocha Chloride [Moles/Vol] 102 mmol/L Normal 98-107 [facility] Comment on above: Performed By: #### T SH, CMP, LIPID ####[facility] Eupyknhcgl9984 [place] [address]Dr. Ricardo Rocha CO2 [Moles/Vol] 18.4 mmol/L Critically low 21.0-32.0 [facility] Comment on above: Performed By: #### T SH, CMP, LIPID ####[facility] Bkvmxqpikb8918 [place] [address]Dr. Ricardo Rocha Creatinine [Mass/Vol] 2.01 mg/dL Critically high 0.55-1.02 [facility] Comment on above: Performed By: #### T SH, CMP, LIPID ####[facility] Oygozvzurb[address] [place] [address]Dr. Ricardo Rocha EGFR-AF EGYPTIAN 30 mL/min/1.73m2 Critically low >=60 [facility] Comment on above: Performed By: #### T SH, CMP, LIPID ####[facility] Dkmmftfqjk6[address] [place] [address]Dr. Ricardo Rocha EGFR-NON AF EGYPTIAN 25 mL/min/1.73m2 Critically low >=60 [facility] Comment on above: Performed By: #### T SH, CMP, LIPID ####[facility] Easmfyljms45[address] [place] [address]Dr. Nanomarcial Rocha Globulin (S) [Mass/Vol] 6.3 g/dL Normal [facility] Comment on above: Performed By: #### T SH, CMP, LIPID ####[facility] Quisbcmocl[address] [place] [address]Dr. Nanomarcial Rocha Glucose [Mass/Vol] 118 mg/dL Critically high 74-106 [facility] Comment on above: Performed By: #### T SH, CMP, LIPID ####[facility] Wdlzhqyhfp8218 [place] [address]Dr. Nanomarcial Rocha Potassium [Moles/Vol] 5.5 mmol/L Critically high 3.5-5.1 [facility] Comment on above: Performed By: #### T SH, CMP, LIPID ####[facility] Znvfltsmzb6068 [place] [address]Dr. Ricardo Rocha Protein [Mass/Vol] 9.6 g/dL Critically high 6.4-8.2 [facility] Comment on above: Performed By: #### T SH, CMP, LIPID ####[facility] Zvrdzjjwsk9[address] [place] [address]Dr. Ricardo Rocha Sodium [Moles/Vol] 131 mmol/L Critically low 136-145 [facility] Comment on above: Performed By: #### T SH, CMP, LIPID ####[facility] Xlorsuyisb5685 [place] [address]Dr. Ricardo Rocha Urea nitrogen [Mass/Vol] 45.0 mg/dL Critically high 7.0-18.0 [facility] Comment on above: Performed By: #### T SH, CMP, LIPID ####[facility] Dtjcaceoqq[address] [place], [place] [address]Dr. Ricardo Rocha Urea nitrogen/Creatinine [Mass ratio] 22.4 mg/mg Normal [facility] Comment on above: Performed By: #### T SH, CMP, LIPID ####[facility] Pevibfopob[address] [place], [place] [address]Dr. Ricardo Rocha TSHon 07-06-2022 TSH 1.178 uIU/mL Normal 0.358-3.740 [facility] Comment on above: Performed By: #### T SH, CMP, LIPID ####[facility] Csmgrtbwro[address] [place], [place] [address]Dr. Ricardo Rocha UA RANDOM W/MICROSCOPICon BACTERIA NONE SEEN Normal NONE SEEN [facility] Comment on above: Performed By: #### U AMIC ####[facility] Znvqtaulpf[address] [place], [place] [address]Dr. Ricardo Rocha Bilirubin Ql (U) Negative Normal NEGATIVE The [facility] Comment on above: Performed By: #### U AMIC ####[facility] Katjswxyvn[address] [place], [place] [address]Dr. Ricardo Rocha CAST NONE SEEN Normal NONE SEEN [facility] Comment on above: Performed By: #### U AMIC ####[facility] Dbmjyorovy1172 [place] [address]Dr. Ricardo Rocha Clarity (U) CLEAR Normal CLEAR [facility] Comment on above: Performed By: #### U AMIC ####[facility] Wxfqgngntx4017 [place] [address]Dr. Ricardo Rocha Color (U) LT. YELLOW Normal YELLOW The [facility] Comment on above: Performed By: #### U AMIC ####[facility] Lnumagxvyx0063 [place] [id number]. Yilan Rocha Crystals LM Nom (Urine sed) NONE SEEN Normal NONE SEEN [facility] Comment on above: Performed By: #### U AMIC ####[facility] Izfipqgdgg7256 [place] [address]Dr. Yilan Rocha Epithelial cells LM Ql (Urine sed) NONE SEEN Normal NONE SEEN /RARE The [facility] Comment on above: Performed By: #### U AMIC ####[facility] Pjpokbwomm1044 [place] [address]Dr. Yilan Rocha Glucose Ql (U) Negative Normal NEGATIVE The [facility] Comment on above: Performed By: #### U AMIC ####[facility] Ifvuetxjtb[address] [place], [place] [address]Dr. Yilan Rocha Hemoglobin Ql (U) Negative Normal NEGATIVE The [facility] Comment on above: Performed By: #### U AMIC ####[facility] Ellyefxstn[address] [place], [place] [address]Dr. Yilan Rocha Ketones Ql (U) Negative Normal NEGATIVE The [facility] Comment on above: Performed By: #### U AMIC ####[facility] Mlvzjhbltg9[address] [place], [place] [address]Dr. Yilan Rocha LEUKOCYTES Negative Normal NEGATIVE The [facility] Comment on above: Performed By: #### U AMIC ####[facility] Ufaxpvfjjk5417 [place] [address]Dr. Yilan Rocha MUCOUS NONE SEEN Normal NONE SEEN [facility] Comment on above: Performed By: #### U AMIC ####[facility] Tkynzlskah1733 [place] [address]Dr. Yilan Rocha Nitrite Ql (U) Negative Normal NEGATIVE The [facility] Comment on above: Performed By: #### U AMIC ####[facility] Blgabvxfid8220 [place] [address]Dr. Ricardo Rocha pH (U) 5.5 [pH] Normal 5-9 The [facility] Comment on above: Performed By: #### U AMIC ####[facility] Cpxmbsndvp3049 [place] [address]Dr. Ricardo Rocha RBC NONE SEEN Abnormal 0-2 The [facility] Comment on above: Performed By: #### U AMIC ####[facility] Vqfjzimkvl[address] [place], [place] [address]Dr. Ricardo Rocha SPEC GRAVITY 1.020 Normal 1.005-<=1.0 25 The [facility] Comment on above: Performed By: #### U AMIC ####[facility] Nqrufhctbr[address] [place], [place] [address]Dr. Ricardo Rocha UA PROTEIN Negative Normal NEGATIVE/ TRACE The [facility] Comment on above: Performed By: #### U AMIC ####[facility] Eydmzweejq64[address] [place], [place] [address]Dr. Ricardo Rocha Urobilinogen Qn (U) 0.2 {Madeleine'U}/dL Normal 0.2 - 1. 0 The [facility] Comment on above: Performed By: #### U AMIC ####[facility] Ahscsewxnd[address] [place], [place] [address]Dr. Ricardo Rocha WBC NONE SEEN Normal NONE SEEN The [facility] Comment on above: Performed By: #### U AMIC ####[facility] Rgwucbkeqm[address] [place], [place] [address]Dr. Ricardo Rocha CBC W MANUAL DIFFon 06-16-20 22 ATYPICAL LYMPH # Normal The [facility] Comment on above: Performed By: #### C BCRED ####[facility] Iwgordqyng[address] [place], [place] [address]Dr. Ricardo Rocha ATYPICAL LYMPH % Normal The [facility] Comment on above: Performed By: #### C BCRED ####[facility] Kdzdzgbdsg[address] [place], [place] [address]Dr. Ricardo Rocha BAND # 0.2 103/ul Normal 0.0-0.3 The [facility] Comment on above: Performed By: #### C BCMAN ####[facility] Ltrqjtiumr3765 [place] [phone]. Ricardo Rocha BAND % 2 % Normal 0-5 The [facility] Comment on above: Performed By: #### C BCMAN ####[facility] Pxsrqpxgcz1142 [place] [address]Dr. Yilan Rocha BASOM # 0.00 103/ul Normal 0.00-0.10 The [facility] Comment on above: Performed By: #### C BCMAN ####[facility] Icjhqxvohc0690 [place] [address]Dr. Yimarcial Rocha BASOM % 0.0 % Critically low 0.2-2.0 The [facility] Comment on above: Performed By: #### C BCMAN ####[facility] Wswcghfivk5511 [place] [address]Dr. Yilan Rocha BLAST # Normal The [facility] Comment on above: Performed By: #### C BCRED ####[facility] Icxojghoxj6860 [place] [address]Dr. Yimarcial Rocha BLAST % Normal The [facility] Comment on above: Performed By: #### C BCMAN ####[facility] Jgpffijurj8463 [place] [phone]. Ricardo Rocha CORRECTED WBC Normal 4.0-11.0 The [facility] Comment on above: Performed By: #### C BCMAN ####[facility] J[address]fwj[address] [place], [place] [id number]. Yimarcial Rocha EOS # 0.11 103/ul Normal 0.00-0.70 The [facility] Comment on above: Performed By: #### C BCMAN ####[facility] Wxvdmczanv[address] [place], [place] [address]Dr. Yimarcial Rocha EOS% 1.0 % Normal 0.9-7.0 The [facility] Comment on above: Performed By: #### C BCMAN ####[facility] Wiurjaxnxv7904 [place] [address]Dr. Yilan Rocha HCT 24.2 % Critically low 36.0-48.0 The [facility] Comment on above: Performed By: #### C BCRED ####[facility] Bqbgmvkvpq2315 [place] [address]Dr. Ricardo Rocha HGB 7.9 g/dl Critically low 12.0-16.0 [facility] Comment on above: Performed By: #### C BCRED ####[facility] Operbpszzm8850 [place] [address]Dr. Ricardo Rocha LYMPHM # 1.81 103/ul Normal 1.20-3.80 [facility] Comment on above: Performed By: #### C DWAINE ####[facility] Nyqwxzfwbc4539 [place] [address]Dr. Ricardo Rocha LYMPHM% 16.0 % Critically low 20.5-60.0 [facility] Comment on above: Performed By: #### C DWAINE ####[facility] Jtkvqlfbxw2533 [place] [address]Dr. Ricardo Rocha MCH 25.2 pg Critically low 26.7-34.0 [facility] Comment on above: Performed By: #### C DWAINE ####[facility] Lxexqcggkv0644 [place] [address]Dr. Ricardo Rocha MCHC 32.6 g/dl Normal 29.9-35.2 [facility] Comment on above: Performed By: #### C DWAINE ####[facility] Vwydytdzmn4662 [place] [address]Dr. Ricardo Rocha MCV 77.3 fL Critically low 81.0-99.0 The [facility] Comment on above: Performed By: #### C BCRED ####[facility] Zcmajvulqo5483 [place] [address]Dr. Ricardo Rocha METAMYELOCYTE # 0.5 103/ul Normal The [facility] Comment on above: Performed By: #### C BCRED ####[facility] Klxpgkxwoz4461 [place] [address]Dr. Ricardo Rocha METAMYELOCYTE % 4 % Normal The [facility] Comment on above: Performed By: #### C BCRED ####[facility] Ajonyrolop1849 [place], [place] [address]Hv. Ricardo Rocha MONOM# 0.45 103/ul Normal 0.30-0.80 The [facility] Comment on above: Performed By: #### C DWAINE ####[facility] Pxavpdhhkf32[address] [place], [place] [address]Tf. Ricardo Rocha MONOM% 4.0 % Normal 1.7-12.0 The [facility] Comment on above: Performed By: #### C DWAINE ####[facility] Dnncriduxk6773 [place] [phone]. Ricardo Rocha MPV 10.4 fL Normal 9.5-13.5 [facility] Comment on above: Performed By: #### C DWAINE ####[facility] Gdpkqqszym7046 [place] [address]Dr. Ricardo Rocha MYELOCYTE # 0.5 103/ul Normal The [facility] Comment on above: Performed By: #### C DWAINE ####[facility] Jwoirnmnpm1663 [place] [address]Dr. Ricardo Rocha MYELOCYTE % 4 % Normal The [facility] Comment on above: Performed By: #### C DWAINE ####[facility] Kucclripzt2204 [place] [address]Dr. Ricardo Rocha NRBC Normal The [facility] Comment on above: Performed By: #### C DWAINE ####[facility] Krazqyymmf2494 [place] [phone]. Ricardo Rocha PLT 325 103/ul Normal 150-450 The [facility] Comment on above: Performed By: #### C DWAINE ####[facility] Pzeqvanhze2770 [place] [address]Dr. Ricardo Rocha RBC 3.13 106/ul Critically low 4.20-5.[address] [facility] Comment on above: Performed By: #### C DWAINE ####[facility] Azcsifwglc5194 [place] [phone]. Ricardo Rocha RDW 13.7 % Normal 11.0-15.0 The [facility] Comment on above: Performed By: #### C BCMAN ####[facility] Fkjruwlcqq0083 [place] [address]Dr. Ricardo Rocha SEG # 7.80 103/ul Critically high 1.40-6.50 [facility] Comment on above: Performed By: #### C BCMAN ####[facility] Ioekjeihyl2893 [place] [address]Dr. Ricardo Rocha SEG % 69.0 % Normal 43.0-75.0 [facility] Comment on above: Performed By: #### C BCMAN ####[facility] Hbuaujiqip2598 [place] [address]Dr. Ricardo Rocha WBC 11.3 103/ul Critically high 4.0-11.0 [facility] Comment on above: Performed By: #### C DWAINE ####[facility] Wavwxylksx[address] [place], [place] [address]Dr. Ricardo Rocha PROF 14(COMP METB)on 022 Albumin [Mass/Vol] 1.7 g/dL Critically low 3.4-5.0 [facility] Comment on above: Performed By: #### C MP ####[facility] Lkvuvprbfh[address] [place], [place] [address]Dr. Ricardo Rocha Albumin/Globulin [Mass ratio] 0.4 {ratio} Normal [facility] Comment on above: Performed By: #### C MP ####[facility] Zrpgybggtt[address] [place], [place] [address]Dr. Ricardo Rocha ALP [Catalytic activity/Vol] 174 U/L Critically high 46-116 [facility] Comment on above: Performed By: #### C MP ####[facility] Azybviuehc6971 [place] [address]Dr. Ricardo Rocha ALT [Catalytic activity/Vol] 14 U/L Normal 14-59 [facility] Comment on above: Performed By: #### C MP ####[facility] Wpbatqzgxo3917 [place] [address]Dr. Ricardo Rocha Anion gap [Moles/Vol] 10.8 mmol/L Normal [facility] Comment on above: Performed By: #### C MP ####[facility] Llsgvcugdp6344 [place] [phone]. Ricardo Rocha AST [Catalytic activity/Vol] 13 U/L Critically low 15-37 [facility] Comment on above: Performed By: #### C MP ####[facility] Wauwkjpzjf2463 [place] [phone]. Ricardo Rocha Bilirubin [Mass/Vol] 0.3 mg/dL Normal 0.2-1.0 [facility] Comment on above: Performed By: #### C MP ####[facility] Swayjvvmbv3193 [place] [address]Dr. Ricardo Rocha Calcium [Mass/Vol] 8.2 mg/dL Critically low 8.5-10.1 Th e [facility] Comment on above: Performed By: #### C MP ####[facility] Qxmdyceluf[address] [place], [place] [address]Dr. Ricardo Rocha Chloride [Moles/Vol] 104 mmol/L Normal 98-107 The [facility] Comment on above: Performed By: #### C MP ####[facility] Afwajpteie06[address] [place], [place] [address]Dr. Ricardo Rocha CO2 [Moles/Vol] 22.4 mmol/L Normal 21.0-32.0 The [facility] Comment on above: Performed By: #### C MP ####[facility] Oxpxoqdmvu327[address] [place], [place] [address]Dr. Ricardo Rocha Creatinine [Mass/Vol] 1.29 mg/dL Critically high 0.55-1.02 [facility] Comment on above: Performed By: #### C MP ####[facility] Xgzmcevdzh1926 [place] [phone]. Ricardo Aj EGFR-AF EGYPTIAN 50 mL/min/1.73m2 Critically low >=60 The [facility] Comment on above: Performed By: #### C MP ####[facility] Lhbeqnpafw[address] [place], [place] [address]Dr. Nanomarcial Aj EGFR-NON AF EGYPTIAN 42 mL/min/1.73m2 Critically low >=60 The [facility] Comment on above: Performed By: #### C MP ####[facility] Bxsjzxfbbs7043 [place] [phone]. Ricardo Rocha Globulin (S) [Mass/Vol] 4.8 g/dL Normal [facility] Comment on above: Performed By: #### C MP ####[facility] Bzngmbzjnj1589 [place] [address]Dr. Ricardo Rocha Glucose [Mass/Vol] 262 mg/dL Critically high 74-106 [facility] Comment on above: Performed By: #### C MP ####[facility] Hjgzgpvwku5596 [place] [address]Dr. Ricardo Rocha Potassium [Moles/Vol] 3.2 mmol/L Critically low 3.5-5.1 [facility] Comment on above: Performed By: #### C MP ####[facility] Slntnzfrjm3936 [place] [address]Dr. Ricardo Rocha Protein [Mass/Vol] 6.5 g/dL Normal 6.4-8.2 [facility] Comment on above: Performed By: #### C MP ####[facility] Omctwewnfw0160 [place] [address]Dr. Ricardo Rocha Sodium [Moles/Vol] 134 mmol/L Critically low 136-145 [facility] Comment on above: Performed By: #### C MP ####[facility] Skyeuzymyb9936 [place] [address]Dr. Ricardo Aj Urea nitrogen [Mass/Vol] 20.0 mg/dL Critically high 7.0-18.0 [facility] Comment on above: Performed By: #### C MP ####[facility] Yrjzwinbwy4376 [place] [address]Dr. Ricardo Aj Urea nitrogen/Creatinine [Mass ratio] 15.5 mg/mg Normal [facility] Comment on above: Performed By: #### C MP ####[facility] Gcjujixdtd0616 [place] [address]Dr. Ricardo Aj CBC AUTO DIFFon 06-15-2022 BASO # 0.1 103/ul Normal 0.0-0.1 [facility] Comment on above: Performed By: #### C BC ####[facility] Xnchukyusw4280 [place] [address]Dr. Ricardo Aj Basophils/100 WBC (Bld) 0.7 % Normal 0.2-2.0 [facility] Comment on above: Performed By: #### C BC ####[facility] Cqivffpcce[address] [place], [place] [address]Dr. Ricardo Rocha EO # 0.1 103/ul Normal 0.0-0.7 The [facility] Comment on above: Performed By: #### C BC ####[facility] Wjstvcnplm[address] [place], [place] [address]Dr. Ricardo Aj Eosinophils/100 WBC (Bld) 0.7 % Critically low 0.9-7.0 [facility] Comment on above: Performed By: #### C BC ####[facility] Lphihrnlbo[address] [place], [place] [address]Dr. Ricardo Aj Erythrocyte distribution width (RBC) [Ratio] 13.7 % Normal 11.0-15.0 [facility] Comment on above: Performed By: #### C BC ####[facility] Zlbmzjpnwt[address] [place], [place] [address]Dr. Ricardo Rocha Hematocrit (Bld) [Volume fraction] 26.7 % Critically low 36.0-48.0 [facility] Comment on above: Performed By: #### C BC ####[facility] Jnljyvpyev[address] [place], [place] [address]Dr. Ricardo Rocha Hemoglobin (Bld) [Mass/Vol] 8.4 g/dL Critically low 12.0-16.0 The [facility] Comment on above: Performed By: #### C BC ####[facility] Ctodwvmrdg[address] [place], [place] [address]Dr. Riacrdo Rocha IG # 0.83 10e3/ul Critically high 0.00-0.03 [facility] Comment on above: Performed By: #### C BC ####[facility] Qutlzhksau[address] [place], [place] [address]Dr. Ricardo Rocha IG % 6.2 % Critically high 0.0-0.[address] [facility] Comment on above: Performed By: #### C BC ####[facility] Ygrpkjfweq2959 [place] [address]DrIrina Rocha LYMPH # 1.3 103/ul Normal 1.2-3.8 The [facility] Comment on above: Performed By: #### C BC ####[facility] Ojzczrrnxc7697 [place] [address]DrIrina Rocha Lymphocytes/100 WBC (Bld) 9.6 % Critically low 20.5-60.0 [facility] Comment on above: Performed By: #### C BC ####[facility] Aslhjplpix[address] [place], [place] [address]DrIrina Rocha MANUAL DIFF REQ NO Normal [facility] Comment on above: Performed By: #### C BC ####[facility] Idqspanwgc09[address] [place], [place] [address]DrIrina Rocha MCH (RBC) [Entitic mass] 25.1 pg Critically low 26.7-34.0 [facility] Comment on above: Performed By: #### C BC ####[facility] Yrftndlwoi219[address] [place], [place] [address]DrIrina Rocha MCHC (RBC) [Mass/Vol] 31.5 g/dL Normal 29.9-35.2 The [facility] Comment on above: Performed By: #### C BC ####[facility] Ulstgxeuhg456[address] [place], [place] [address]DrIrina Rocha MCV (RBC) [Entitic vol] 79.7 fL Critically low 81.0-99.0 The [facility] Comment on above: Performed By: #### C BC ####[facility] Rfyneqknzn[address] [place], [place] [address]DrIrina Rocha MONO # 1.0 103/ul Critically high 0.3-0.[address] [facility] Comment on above: Performed By: #### C BC ####[facility] Qiqcoacvgf9[address] [place], [place] [address]DrIrina Rocha Monocytes/100 WBC (Bld) 7.3 % Normal 1.7-12.0 The [facility] Comment on above: Performed By: #### C BC ####[facility] Qkdakplqvv4938 [place] [address]Dr. Ricardo Rocha NEUT # 10.2 103/ul Critically high 1.4-6.5 The [facility] Comment on above: Performed By: #### C BC ####[facility] Xvgtlrkjky[address] [place], [place] [address]Dr. Ricardo Rocha Neutrophils/100 WBC (Bld) 75.5 % Critically high 43.0-75.0 The [facility] Comment on above: Performed By: #### C BC ####[facility] Juwqnfrfsf694[address] [place], [place] [address]Dr. Ricardo Rocha Platelet mean volume (Bld) [Entitic vol] 11.8 fL Normal 9.5-13.5 The [facility] Comment on above: Performed By: #### C BC ####[facility] Bnorxvvjua346[address] [place], [place] [address]Dr. Ricardo Rocha PLT 208 103/ul Normal 150-450 [facility] Comment on above: Performed By: #### C BC ####[facility] Kuqbgegcag794[address] [place], [place] [address]Dr. Ricardo Rocha RBC 3.35 106/ul Critically low 4.20-5.[address] [facility] Comment on above: Performed By: #### C BC ####[facility] Mdf[address]wqgftl[address] [place], [place] [address]Dr. Ricardo Rocha WBC 13.5 103/ul Critically high 4.0-11.0 The [facility] Comment on above: Performed By: #### C BC ####[facility] Mztyjerwxl[address] [place], [place] [address]Dr. Ricardo Aj CULTURE BLOODon 06-15-2022 Microscopic examination of blood, culture Culture Observations: NO GROWTH AT 5 DAYS Normal The [facility] Comment on above: Performed By: #### B LDCX2 ####[facility] Lceltibqvu[address] [place], [place] [address]Dr. Ricardo Rocha Microscopic examination of blood, culture Culture Observations: NO GROWTH AT 5 DAYS Normal The [facility] Comment on above: Performed By: #### B LDCX1 ####[facility] Uwpwhhhnls[address] [place], [place] [address]DrIrina Ricardo Rocha Covid-19 PCR (CVDTB)on 05-22 SARS-CoV-2 (COVID-19) RNA ADRIEL+probe Ql (Unsp spec) Not detected Normal NOT DETECTED [facility] - [place] Comment on above: Result Comment: When diagnostic [...] for this test is supported by the [place] of Health and Human Service's declaration that [...] be used). Performed By: #### C VDTBH ####[facility] [address] [place] [address]Dr. Ricardo Aj POINT OF CARE GLUCOSEon 05-22 Glucose [Mass/Vol] 366 mg/dL Critically high -106 [facility] Comment on above: Performed By: #### P OCGLUC ####[facility] Dxsrcsidgw[address] [place] [address]Dr. Ricardo Rocha Glucose [Mass/Vol] 229 mg/dL Critically high -106 [facility] Comment on above: Performed By: #### P OCGLUC ####[facility] [address]txrscml[address] [place], [place] [address]Dr. Ricardo Rocha Glucose [Mass/Vol] 258 mg/dL Critically high -106 [facility] Comment on above: Performed By: #### P OCGLUC ####[facility] Wwfljdgmje[address] [place] [address]Dr. Ricardo Rocha PROF 14(COMP METB)on 022 Albumin [Mass/Vol] 1.8 g/dL Critically low 3.4-5.0 [facility] Comment on above: Performed By: #### C MP ####[facility] [address] [place] [address]Dr. Ricardo Rocha Albumin/Globulin [Mass ratio] 0.4 {ratio} Normal [facility] Comment on above: Performed By: #### C MP ####[facility] Sxpxplboec[address] [place], [place] [address]Dr. Ricardo Rocha ALP [Catalytic activity/Vol] 196 U/L Critically high 46-116 [facility] Comment on above: Performed By: #### C MP ####[facility] Eifevrgnhi[address] [place], [place] [address]Dr. Ricardo Rocha ALT [Catalytic activity/Vol] 18 U/L Normal 14-59 [facility] Comment on above: Performed By: #### C MP ####[facility] Ngkakcnadz[address] [place], [place] [address]Dr. Ricardo Rocha Anion gap [Moles/Vol] 16.3 mmol/L Normal [facility] Comment on above: Performed By: #### C MP ####[facility] Cbslmdhkfh[address] [place], [place] [address]Dr. Ricardo Rocha AST [Catalytic activity/Vol] 22 U/L Normal 15-37 [facility] Comment on above: Performed By: #### C MP ####[facility] Dcmjrwjkbf[address] [place], [place] [address]Dr. Ricardo Rocha Bilirubin [Mass/Vol] 0.4 mg/dL Normal 0.2-1.0 [facility] Comment on above: Performed By: #### C MP ####[facility] Gacjilmxaz[address] [place], [place] [address]Dr. Ricardo Rocha Calcium [Mass/Vol] 8.2 mg/dL Critically low 8.5-10.1 [facility] Comment on above: Performed By: #### C MP ####[facility] [address]zlpfdrpjc[address] [place] [address]Dr. Ricardo Aj Chloride [Moles/Vol] 103 mmol/L Normal 98-107 [facility] Comment on above: Performed By: #### C MP ####[facility] Dbpgryaruc[address] [place] [id number]. Ricardo Aj CO2 [Moles/Vol] 19.0 mmol/L Critically low 21.0-32.0 [facility] Comment on above: Performed By: #### C MP ####[facility] Nbwfeapzjz65[address] [place] [address]Dr. Ricardo Rocha Creatinine [Mass/Vol] 1.32 mg/dL Critically high 0.55-1.02 [facility] Comment on above: Performed By: #### C MP ####[facility] Rrwufefybb[address] [place], [place] [address]Dr. Nanomarcial Aj EGFR-AF EGYPTIAN 49 mL/min/1.73m2 Critically low >=60 [facility] Comment on above: Performed By: #### C MP ####[facility] Xxtuacmpdk[address] [place] [address]Dr. Nanomarcial Aj EGFR-NON AF EGYPTIAN 41 mL/min/1.73m2 Critically low >=60 [facility] Comment on above: Performed By: #### C MP ####[facility] Ktjrptwosq[address] [place] [address]Dr. Ricardo Rocha Globulin (S) [Mass/Vol] 5.0 g/dL Normal [facility] Comment on above: Performed By: #### C MP ####[facility] Qaqrhwvaky[address] [place] [address]Dr. Ricardo Rocha Glucose [Mass/Vol] 228 mg/dL Critically high 74-106 [facility] Comment on above: Performed By: #### C MP ####[facility] Ohhgzsjxsj50[address] [place] [address]Dr. Ricardo Rocha Potassium [Moles/Vol] 3.3 mmol/L Critically low 3.5-5.1 [facility] Comment on above: Performed By: #### C MP ####[facility] Easacaetpj[address] [place], [place] [address]Dr. Ricardo Rocha Protein [Mass/Vol] 6.8 g/dL Normal 6.4-8.2 [facility] Comment on above: Performed By: #### C MP ####[facility] Mlwaqqdejz93[address] [place], [place] [address]Dr. Ricrado Rocha Sodium [Moles/Vol] 135 mmol/L Critically low 136-145 [facility] Comment on above: Performed By: #### C MP ####[facility] Nejxbttwvo44[address] [place], [place] [address]Dr. Ricardo Rocha Urea nitrogen [Mass/Vol] 23.0 mg/dL Critically high 7.0-18.0 [facility] Comment on above: Performed By: #### C MP ####[facility] Utwhhtordg[address] [place], [place] [address]Dr. Ricardo Rocha Urea nitrogen/Creatinine [Mass ratio] 17.4 mg/mg Normal [facility] Comment on above: Performed By: #### C MP ####[facility] Nnyapswgpm[address] [place], [place] [address]Dr. 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 Ricardo Rocha Clarity (U) CLEAR Normal CLEAR [facility] Comment on above: Performed By: #### U MICRO, UACSIND ####[facility] Kzqdknnngk[address] [place], [place] [address]Dr. Ricardo Rocha Color (U) LT. YELLOW Normal YELLOW [facility] Comment on above: Performed By: #### U MICRO, UACSIND ####[facility] Tobiymlggr45[address] [place], [place] [address]Dr. Ricardo Rocha Glucose Ql (U) 250 mg/dl Abnormal NEGATIVE [facility] Comment on above: Performed By: #### U MICRO, UACSIND ####[facility] Dasvbpkuij[address] [place] [address]Dr. Ricardo Rocha Hemoglobin Ql (U) TRACE-LYSED Abnormal NEGATIVE [facility] Comment on above: Performed By: #### U MICRO, UACSIND ####[facility] Qwkuwgxoyd[address] [place] [address]Dr. Ricardo Rocha Ketones Ql (U) 15 mg/dl Abnormal NEGATIVE [facility] Comment on above: Performed By: #### U MICRO, UACSIND ####[facility] Wrdsdihzvn34[address] [place], [place] [address]Dr. Ricardo Rocha LEUKOCYTES Negative Normal NEGATIVE [facility] Comment on above: Performed By: #### U MICRO, UACSIND ####[facility] Txuyrtbesn[address] [place], [place] [address]Dr. Ricardo Rocha Nitrite Ql (U) Negative Normal NEGATIVE [facility] Comment on above: Performed By: #### U MICRO, UACSIND ####[facility] Jtfzsiwidb[address]25[address] [place], [place] [address]Dr. Ricardo Rocha pH (U) 6.0 [pH] Normal 5-9 [facility] Comment on above: Performed By: #### U MICRO, UACSIND ####[facility] Xljyurpvda184[address] [place], [place] [address]Dr. Ricardo Rocha SPEC GRAVITY 1.010 Normal 1.005-<=1.[address] [place] [address] Comment on above: Performed By: #### U MICRO, UACSIND ####[facility] Pjmxxzttot[address] [place], [place] [address]Dr. Ricardo Rocha UA PROTEIN Negative Normal NEGATIVE/ TRACE [facility] Comment on above: Performed By: #### U MICRO, UACSIND ####[facility] Qzelcnoles[address] [place], [place] [address]Dr. Ricardo Rocha UR MICRO IND INDICATED Normal [facility] Comment on above: Performed By: #### U MICRO, UACSIND ####[facility] Vnqnyhgmrw[address] [place], [place] [address]Dr. Ricardo Rocha Urobilinogen Qn (U) 0.2 {Madeleine'U}/dL Normal 0.2 - 1. 0 [facility] Comment on above: Performed By: #### U MICRO, UACSIND ####[facility] [address]ujlrv[address]ri[address] [place] [address]Dr. Ricardo Rocha URINE MICROSCOPIC ONLYon BACTERIA NONE SEEN Normal NONE SEEN [facility] Comment on above: Performed By: #### U MICRO, UACSIND ####[facility] Khfodobate[address] [place] [address]Dr. Ricardo Rocha Bacteria identified Cx Nom (U) NOT INDICATED Normal [facility] Comment on above: Performed By: #### U MICRO, UACSIND ####[facility] Edvigxatzq[address] [place] [address]Dr. Ricardo Rocha CAST NONE SEEN Normal NONE SEEN [facility] Comment on above: Performed By: #### U MICRO, UACSIND ####[facility] Wjxujcyjox[address] [place] [address]Dr. Ricardo Rocha Crystals LM Nom (Urine sed) NONE SEEN Normal NONE SEEN [facility] Comment on above: Performed By: #### U MICRO, UACSIND ####[facility] Iyswvavycg[address] [place] [address]Dr. Ricardo Rocha Epithelial cells LM Ql (Urine sed) FEW Abnormal NONE SEEN /RARE [facility] Comment on above: Performed By: #### U MICRO, UACSIND ####[facility] [address]cgregffkf[address] [place] [address]Dr. Ricardo Rocha MUCOUS NONE SEEN Normal NONE SEEN [facility] Comment on above: Performed By: #### U MICRO, UACSIND ####[facility] Gstydmmzbb[address] [place] [address]Dr. Ricardo Rocha RBC 2-5 Abnormal 0-2 [facility] Comment on above: Performed By: #### U MICRO, UACSIND ####[facility] Jddppumidf[address] [place] [address]Dr. Ricardo Rocha WBC 2-5 Abnormal NONE SEEN [facility] Comment on above: Performed By: #### U MICRO, UACSIND ####[facility] Vmkevenvtl[address] [place] [address]Dr. Ricardo Rocha YEAST PRESENT Abnormal NONE SEEN [facility] Comment on above: Performed By: #### U MICRO, UACSIND ####[facility] Laidimasqx[address] [place] [id number]. Ricardo Rocha CBC AUTO DIFFon 06-14-2022 BASO # 0.0 103/ul Normal 0.0-0.1 [facility] Comment on above: Performed By: #### C BC ####[facility] Gqeenpufyp[address] [place], [place] [address]Dr. Ricardo Rocha Basophils/100 WBC (Bld) 0.4 % Normal 0.2-2.0 [facility] Comment on above: Performed By: #### C BC ####[facility] Gumitxuthe[address] [place], [place] [address]Dr. Ricardo Rocha EO # 0.0 103/ul Normal 0.0-0.7 [facility] Comment on above: Performed By: #### C BC ####[facility] Utrdvofiya[address] [place], [place] [address]Dr. Ricardo Rocha Eosinophils/100 WBC (Bld) 0.4 % Critically low 0.9-7.0 [facility] Comment on above: Performed By: #### C BC ####[facility] Lbasblaeqc[address] [place], [place] [address]Dr. Ricardo Rocha Erythrocyte distribution width (RBC) [Ratio] 13.8 % Normal 11.0-15.0 [facility] Comment on above: Performed By: #### C BC ####[facility] Yqckkyfsnt8[address] [place], [place] [address]Dr. Ricardo Rocha Hematocrit (Bld) [Volume fraction] 26.2 % Critically low 36.0-48.0 [facility] Comment on above: Performed By: #### C BC ####[facility] Woemlapnca[address] [place], [place] [address]Dr. Ricardo Rocha Hemoglobin (Bld) [Mass/Vol] 8.3 g/dL Critically low 12.0-16.0 [facility] Comment on above: Performed By: #### C BC ####[facility] Dknnkpxaln[address] [place] [address]DrIrina Rocha IG # 0.24 10e3/ul Critically high 0.00-0.03 [facility] Comment on above: Performed By: #### C BC ####[facility] Xpgvpkyrgx9372 [place] [address]DrIrina Rocha IG % 2.3 % Critically high 0.0-0.[address] [facility] Comment on above: Performed By: #### C BC ####[facility] Jzhapftpbs[address] [place], [place] [address]DrIrina Rocha LYMPH # 1.1 103/ul Critically low 1.2-3.8 [facility] Comment on above: Performed By: #### C BC ####[facility] Xoctxjelsw[address] [place], [place] [address]DrIrina Rocha Lymphocytes/100 WBC (Bld) 10.2 % Critically low 20.5-60.0 [facility] Comment on above: Performed By: #### C BC ####[facility] Mqfywrypez[address] [place], [place] [address]DrIrina Rocha MANUAL DIFF REQ NO Normal [facility] Comment on above: Performed By: #### C BC ####[facility] Ssrihyowob73[address] [place] [address]DrIrina Rocha MCH (RBC) [Entitic mass] 25.5 pg Critically low 26.7-34.0 [facility] Comment on above: Performed By: #### C BC ####[facility] Qlnwfwtpxi238[address] [place], [place] [address]DrIrina Rocha MCHC (RBC) [Mass/Vol] 31.7 g/dL Normal 29.9-35.2 [facility] Comment on above: Performed By: #### C BC ####[facility] Hyagsdqwrs[address] [place], [place] [address]DrIrina Rocha MCV (RBC) [Entitic vol] 80.6 fL Critically low 81.0-99.0 [facility] Comment on above: Performed By: #### C BC ####[facility] Dwnkpzdkmy[address] [place] [address]Dr. Ricardo Rocha MONO # 0.7 103/ul Normal 0.3-0.8 [facility] Comment on above: Performed By: #### C BC ####[facility] Zfgxmtlmxw[address] [place] [address]Dr. Ricardo Rocha Monocytes/100 WBC (Bld) 6.7 % Normal 1.7-12.0 [facility] Comment on above: Performed By: #### C BC ####[facility] Lbmebfupun[address] [place], [place] [address]Dr. Ricardo Rocha NEUT # 8.5 103/ul Critically high 1.4-6.[address] [facility] Comment on above: Performed By: #### C BC ####[facility] Sgynbaegmo[address] [place], [place] [address]Dr. Ricardo Rocha Neutrophils/100 WBC (Bld) 80.0 % Critically high 43.0-75.0 [facility] Comment on above: Performed By: #### C BC ####[facility] Ldjdgqlgny[address] [place], [place] [address]Dr. Ricardo Rocha Platelet mean volume (Bld) [Entitic vol] 12.1 fL Normal 9.5-13.5 [facility] Comment on above: Performed By: #### C BC ####[facility] Sphfwewdal[address] [place] [address]Dr. Ricardo Aj PLT 173 103/ul Normal 150-450 [facility] Comment on above: Performed By: #### C BC ####[facility] Ucijbuexol[address] [place], [place] [address]Dr. Ricardo Aj RBC 3.25 106/ul Critically low 4.20-5.[address] [facility] Comment on above: Performed By: #### C BC ####[facility] Ogqkwnmjre[address] [place], [place] [address]Dr. Ricardo Rocha WBC 10.6 103/ul Normal 4.0-11.0 [facility] Comment on above: Performed By: #### C BC ####[facility] Awuzkrklpq[address] [place] [address]Dr. Ricardo Rocha POINT OF CARE GLUCOSEon 05-22 Glucose [Mass/Vol] 237 mg/dL Critically high 74-106 [facility] Comment on above: Performed By: #### P OCGLUC ####[facility] Gxeffwyolv[address] [place] [address]Dr. Ricardo Rocha Glucose [Mass/Vol] 296 mg/dL Critically high 74-106 [facility] Comment on above: Performed By: #### P OCGLUC ####[facility] Xcnrqwivit[address] [place], [place] [address]Dr. Ricardo Rocha Glucose [Mass/Vol] 406 mg/dL Critically high 74-106 [facility] Comment on above: Performed By: #### P OCGLUC ####[facility] Znfqbwpgqg66[address] [place], [place] [address]Dr. Ricardo Rocha Glucose [Mass/Vol] 447 mg/dL Critically high -106 [facility] Comment on above: Performed By: #### P OCGLUC ####[facility] Twqofgvbiq87[address] [place], [place] [address]Dr. Ricardo Rocha Glucose [Mass/Vol] 319 mg/dL Critically high 74-106 [facility] Comment on above: Performed By: #### P OCGLUC ####[facility] Qwigpvkhug6[address] [place], [place] [address]Dr. Ricardo Aj PROF 14(COMP METB)on 022 Albumin [Mass/Vol] 1.6 g/dL Critically low 3.4-5.0 [facility] Comment on above: Performed By: #### C MP ####[facility] Bsdmokaabc[address] [place], [place] [address]Dr. Ricardo Rocha Albumin/Globulin [Mass ratio] 0.3 {ratio} Normal [facility] Comment on above: Performed By: #### C MP ####[facility] Btcnrlbynn42[address] [place], [place] [address]Dr. Ricardo Aj ALP [Catalytic activity/Vol] 201 U/L Critically high 46-116 [facility] Comment on above: Performed By: #### C MP ####[facility] Umdabdmhze475[address] [place] [address]Dr. Ricardo Aj ALT [Catalytic activity/Vol] 23 U/L Normal 14-59 [facility] Comment on above: Performed By: #### C MP ####[facility] Cvhdddczhb269[address] [place], [place] [address]Dr. Ricardo Aj Anion gap [Moles/Vol] 16.0 mmol/L Normal [facility] Comment on above: Performed By: #### C MP ####[facility] Ittocojzng220[address] [place], [place] [address]Dr. Ricardo Aj AST [Catalytic activity/Vol] 21 U/L Normal 15-37 [facility] Comment on above: Performed By: #### C MP ####[facility] Xoidjhwxkp079[address] [place], [place] [address]Dr. Ricardo Aj Bilirubin [Mass/Vol] 0.4 mg/dL Normal 0.2-1.0 [facility] Comment on above: Performed By: #### C MP ####[facility] Vmyqlfjsgc39[address] [place], [place] [address]Dr. Ricardo Rocha Calcium [Mass/Vol] 7.6 mg/dL Critically low 8.5-10.1 [facility] Comment on above: Performed By: #### C MP ####[facility] Slsenmktaa214[address] [place], [place] [address]Dr. Nanomarcial Rocha Chloride [Moles/Vol] 105 mmol/L Normal 98-107 [facility] Comment on above: Performed By: #### C MP ####[facility] Ldrqhaklhw[address] [place], [place] [address]Dr. Ricadro Rocha CO2 [Moles/Vol] 17.3 mmol/L Critically low 21.0-32.0 [facility] Comment on above: Performed By: #### C MP ####[facility] Fkfpjxcmmm867[address] [place], [place] [address]Dr. Ricardo Rocha Creatinine [Mass/Vol] 1.54 mg/dL Critically high 0.55-1.02 [facility] Comment on above: Performed By: #### C MP ####[facility] Wnfdtuqqbg6543 [place] [address]Dr. Ricardo Rocha EGFR-AF EGYPTIAN 41 mL/min/1.73m2 Critically low >=60 [facility] Comment on above: Performed By: #### C MP ####[facility] Cgwlcagqoi314[address] [place], [place] [address]Dr. Ricardo Aj EGFR-NON AF EGYPTIAN 34 mL/min/1.73m2 Critically low >=60 [facility] Comment on above: Performed By: #### C MP ####[facility] Noldktdvpe[address] [place], [place] [address]Dr. Ricardo Aj Globulin (S) [Mass/Vol] 4.7 g/dL Normal [facility] Comment on above: Performed By: #### C MP ####[facility] Zmoavzoepx34[address] [place], [place] [address]Dr. Ricardo Aj Glucose [Mass/Vol] 277 mg/dL Critically high 74-106 [facility] Comment on above: Performed By: #### C MP ####[facility] Godeakpbsd[address] [place], [place] [address]Dr. Ricardo Rocha Potassium [Moles/Vol] 3.3 mmol/L Critically low 3.5-5.1 [facility] Comment on above: Performed By: #### C MP ####[facility] Vcgemmlqib[address] [place], [place] [address]Dr. Ricardo Rocha Protein [Mass/Vol] 6.3 g/dL Critically low 6.4-8.2 [facility] Comment on above: Performed By: #### C MP ####[facility] Pejzjcpyts[address] [place], [place] [address]Dr. Nanomarcial Aj Sodium [Moles/Vol] 135 mmol/L Critically low 136-145 [facility] Comment on above: Performed By: #### C MP ####[facility] Vddawtqjqg[address] [place], [place] [address]Dr. Ricardo Rocha Urea nitrogen [Mass/Vol] 29.0 mg/dL Critically high 7.0-18.0 [facility] Comment on above: Performed By: #### C MP ####[facility] Axnjlupouu[address] [place] [address]Dr. Ricardo Rocha Urea nitrogen/Creatinine [Mass ratio] 18.8 mg/mg Normal [facility] Comment on above: Performed By: #### C MP ####[facility] Gcxgyyidec59[address] [place] [address]Dr. Ricardo Aj CBC AUTO DIFFon 06-13-2022 BASO # 0.0 103/ul Normal 0.0-0.1 [facility] Comment on above: Performed By: #### C BC ####[facility] Abmtdfubav4750 [place] [address]Dr. Ricardo Rocha Basophils/100 WBC (Bld) 0.2 % Normal 0.2-2.0 [facility] Comment on above: Performed By: #### C BC ####[facility] Tfgwzumtqd[address] [place], [place] [address]Dr. Ricardo Aj EO # 0.1 103/ul Normal 0.0-0.7 [facility] Comment on above: Performed By: #### C BC ####[facility] Hexfrcybrl0727 [place] [address]Dr. Ricardo Aj Eosinophils/100 WBC (Bld) 0.6 % Critically low 0.9-7.0 [facility] Comment on above: Performed By: #### C BC ####[facility] Mttzoijfqf[address] [place], [place] [address]Dr. Ricardo Rocha Erythrocyte distribution width (RBC) [Ratio] 14.2 % Normal 11.0-15.0 [facility] Comment on above: Performed By: #### C BC ####[facility] Waqcvvhvks[address] [place], [place] [address]Dr. Ricardo Aj Hematocrit (Bld) [Volume fraction] 27.9 % Critically low 36.0-48.0 [facility] Comment on above: Performed By: #### C BC ####[facility] Enabuqtqsb[address] [place] [id number]. Ricardo Rocha Hemoglobin (Bld) [Mass/Vol] 8.6 g/dL Critically low 12.0-16.0 [facility] Comment on above: Performed By: #### C BC ####[facility] Isqqvzjlet[address] [place] [id number]. Ricardo Rocha IG # 0.08 10e3/ul Critically high 0.00-0.03 [facility] Comment on above: Performed By: #### C BC ####[facility] Qzjxntikbm96[address] [place] [address]Dr. Ricardo Rocha IG % 0.8 % Critically high 0.0-0.[address] [facility] Comment on above: Performed By: #### C BC ####[facility] Lemibtqamt[address] [place], [place] [address]Dr. Nanomarcial Rocha LYMPH # 0.9 103/ul Critically low 1.2-3.8 [facility] Comment on above: Performed By: #### C BC ####[facility] Gugyvpketz[address] [place] [address]Dr. Ricardo Rocha Lymphocytes/100 WBC (Bld) 8.9 % Critically low 20.5-60.0 [facility] Comment on above: Performed By: #### C BC ####[facility] [address]mq[address]jvsdi[address] [place] [address]Dr. Ricardo Rocha MANUAL DIFF REQ NO Normal The [facility] Comment on above: Performed By: #### C BC ####[facility] Nngytc[address] [place], [place] [address]Dr. Ricardo Rocha MCH (RBC) [Entitic mass] 25.1 pg Critically low 26.7-34.0 The [facility] Comment on above: Performed By: #### C BC ####[facility] Rsnylvqysf[address] [place], [place] [address]Dr. Ricardo Rocha MCHC (RBC) [Mass/Vol] 30.8 g/dL Normal 29.9-35.2 [facility] Comment on above: Performed By: #### C BC ####[facility] [address]ufzrbtzm[address] [place] [id number]. Ricardo Rocha MCV (RBC) [Entitic vol] 81.6 fL Normal 81.0-99.0 [facility] Comment on above: Performed By: #### C BC ####[facility] Fezgrxgbtf24[address] [place] [phone]. Ricardo Rocha MONO # 0.6 103/ul Normal 0.3-0.8 [facility] Comment on above: Performed By: #### C BC ####[facility] Xqeatcdcxl38[address] [place] [address]Dr. Ricardo Rocha Monocytes/100 WBC (Bld) 5.7 % Normal 1.7-12.0 The [facility] Comment on above: Performed By: #### C BC ####[facility] [address]jylpgb[address] [place], [place] [address]Dr. Ricardo Rocha NEUT # 8.4 103/ul Critically high 1.4-6.[address] [facility] Comment on above: Performed By: #### C BC ####[facility] Nuxiufxopm6[address] [place] [address]Dr. Ricardo Rocha Neutrophils/100 WBC (Bld) 83.8 % Critically high 43.0-75.0 [facility] Comment on above: Performed By: #### C BC ####[facility] Trtyfffybc[address] [place] [address]Dr. Ricardo Rocha Platelet mean volume (Bld) [Entitic vol] 12.1 fL Normal 9.5-13.5 [facility] Comment on above: Performed By: #### C BC ####[facility] Yvhhzkeqni1109 [place] [phone]. Ricardo Rocha PLT 149 103/ul Critically low 150-450 The [facility] Comment on above: Performed By: #### C BC ####[facility] Xzaumubmhm2358 [place] [phone]. Ricardo Rocha RBC 3.42 106/ul Critically low 4.20-5.[address] [facility] Comment on above: Performed By: #### C BC ####[facility] Xylwewtmvu6949 [place] [address]Dr. Ricardo Rocha WBC 10.0 103/ul Normal 4.0-11.0 The [facility] Comment on above: Performed By: #### C BC ####[facility] Ceudahydzj[address] [place] [address]Dr. Ricardo Rocha CULTURE OTHERon 06-13-2022 CULTURE OTHER Normal The [facility] Comment on above: Performed By: #### O THCX ####[facility] Dvlqijordt[address] [place], [place] [address]Dr. Ricardo Rocha CULTURE OTHER Normal [facility] Comment on above: Performed By: #### O THCX ####[facility] Wxlqudqqpp66[address] [place], [place] [address]Dr. Ricardo Rocha CULTURE OTHER Normal [facility] Comment on above: Performed By: #### O THCX ####[facility] Zelqxymchj[address] [place], [place] [address]Dr. Ricardo Rocha GI PANEL (PCR)on 06-13-2022 Adenovirus F 40/41 Not detected Normal NOT DETECTED The [facility] Comment on above: Performed By: #### G IPANEL ####[facility] Pgiebkumms[address] [place], [place] [address]Dr. Ricardo Rocha Astrovirus Not detected Normal NOT DETECTED The [facility] Comment on above: Performed By: #### G IPANEL ####[facility] Rllpyjqlpj[address] [place], [place] [address]Dr. Ricardo Rocha C. Diff toxin A/B Not detected Normal NOT DETECTED The [facility] Comment on above: Performed By: #### G IPANEL ####[facility] Wpobiidoss046[address] [place], [place] [address]Dr. Ricardo Rocha Campylobacter Not detected Normal NOT DETECTED The [facility] Comment on above: Performed By: #### G IPANEL ####[facility] Qvexuwsryj[address] [place], [place] [address]Dr. Ricardo Rocha Cryptosporidium Not detected Normal NOT DETECTED The [facility] Comment on above: Performed By: #### G IPANEL ####[facility] Ojzemeytdj46[address] [place], [place] [address]Dr. Nanomarcial Rocha Cyclos. Cayetanensis Not detected Normal NOT DETECTED The [facility] Comment on above: Performed By: #### G IPANEL ####[facility] Uspbovjewo64[address] [place], [place] [address]Dr. Nanomarcial Rocha E. Coli O157 Not Applicable Normal Not Applicable The [facility] Comment on above: Performed By: #### G IPANEL ####[facility] Lymptufzhl[address] [place], [place] [address]Dr. Ricardo Rocha E. histolytica Not detected Normal NOT DETECTED The [facility] Comment on above: Performed By: #### G IPANEL ####[facility] Bxoaewxhxn[address] [place], [place] [address]Dr. Ricardo Rocha EAEC Not detected Normal NOT DETECTED The [facility] Comment on above: Performed By: #### G IPANEL ####[facility] Uzqvclhwih[address] [place], [place] [address]Dr. Ricardo Rocha EIEC Not detected Normal NOT DETECTED The [facility] Comment on above: Performed By: #### G IPANEL ####[facility] Ybdgzcrakv[address] [place], [place] [address]Dr. Ricardo Rocha EPEC Not detected Normal NOT DETECTED The [facility] Comment on above: Performed By: #### G IPANEL ####[facility] Vzzwnugbml[address] [place], [place] [address]Dr. Ricardo Rocha ETEC Not detected Normal NOT DETECTED The [facility] Comment on above: Performed By: #### G IPANEL ####[facility] Caxbtamupc7[address] [place], [place] [address]Dr. Ricardo Rocha G. Lamblia Not detected Normal NOT DETECTED The [facility] Comment on above: Performed By: #### G IPANEL ####[facility] Nartyikdqr[address] [place], [place] [address]Dr. Ricardo Rocha GIPANEL CONTROLS PASSED Normal The [facility] Comment on above: Performed By: #### G IPANEL ####[facility] Mxttdxjqyy187[address] [place], [place] [address]Dr. Ricardo Rocha GIPNL MONIQUE HEADER GI PANEL BACTERIA Normal T [facility] Comment on above: Performed By: #### G IPANEL ####[facility] Aieuoqxxbq27[address] [place] [address]Dr. Nanomarcial Aj CASASNLHD ECOLI GI PANEL DIARRHEAGEN IC E.COLI / SHIGELLA Normal The [facility] Comment on above: Performed By: #### G IPANEL ####[facility] Yajztgfjff64[address] [place], [place] [address]Dr. Ricardo Rocha GIPNLHD INFO SEE BELOW Normal The [facility] Comment on above: Result Comment: EAEC - Enteroaggregative E. Coli EPEC- Enteropathogenic E. Coli ETEC- Enterotoxigenic E. Coli lt/st STEC- Shigella-like toxin-producing E. Coli stx1/stx2 EIEC- Shigella/Enteroinvasive E. Coli Performed By: #### G IPANEL ####[facility] Rwcifmbohg[address] [place], [place] [address]Dr. Ricardo Rocha GIPNLHD PARASITES GI PANEL PARASITES Normal The [facility] Comment on above: Performed By: #### G IPANEL ####[facility] Netjzsakly8[address] [place], [place] [address]Dr. Ricardo Rocha GIPNLHD VIRUS GI PANEL VIRUSES Normal The [facility] Comment on above: Performed By: #### G IPANEL ####[facility] Mqjvbydghs[address] [place], [place] [address]Dr. Ricardo Rocha Norovirus GI/GII Not detected Normal NOT DETECTED The [facility] Comment on above: Performed By: #### G IPANEL ####[facility] Eputzqfosp203[address] [place], [place] [address]Dr. Ricardo Rocha P. Shigelloides Not detected Normal NOT DETECTED The [facility] Comment on above: Performed By: #### G IPANEL ####[facility] Qkvuehcjnv[address]16[address] [place], [place] [address]Dr. Ricardo Rocha Rotavirus A Not detected Normal NOT DETECTED The [facility] Comment on above: Performed By: #### G IPANEL ####[facility] Kfcfnifhxu[address] [place], [place] [address]Dr. Ricardo Rocha Salmonella Not detected Normal NOT DETECTED The [facility] Comment on above: Performed By: #### G IPANEL ####[facility] Evfibzjpnj[address] [place], [place] [address]Dr. Ricardo Rocha Sapovirus Not detected Normal NOT DETECTED The [facility] Comment on above: Performed By: #### G IPANEL ####[facility] Kyxdvbvuvv[address] [place], [place] [address]Dr. Ricardo Rocha STEC Not detected Normal NOT DETECTED The [facility] Comment on above: Performed By: #### G IPANEL ####[facility] Xztpwincsq75[address] [place], [place] [address]Dr. Ricardo Rocha Vibrio Not detected Normal NOT DETECTED The [facility] Comment on above: Performed By: #### G IPANEL ####[facility] Nffqsjwwbq6[address] [place], [place] [address]Dr. Ricardo Rocha Vibrio Cholera Not detected Normal NOT DETECTED The [facility] Comment on above: Performed By: #### G IPANEL ####[facility] Umlqsuhcrl[address] [place], [place] [address]Dr. Ricardo Rocha Y. Enterocolitica Not detected Normal NOT DETECTED The [facility] Comment on above: Performed By: #### G IPANEL ####[facility] Lzsstnhbyj[address] [place], [place] [address]Dr. Ricardo Rocha IRON AND TIBCon 06-13-2022 % SATURATION 19.9 % Normal The [facility] Comment on above: Performed By: #### F ETIBC, B12FOL ####[facility] Kcmacrjaee[address] [place], [place] [address]Dr. Ricardo Rocha Iron [Mass/Vol] 75.0 ug/dL Normal 50.0-170.[address] [facility] Comment on above: Performed By: #### F ETIBC, B12FOL ####[facility] Cfwuicqcpi[address] [place], [place] [address]Dr. Ricardo Rocha TIBC DIRECT 376.0 ug/dL Normal 250.0-450.0 [facility] Comment on above: Performed By: #### F ETIBC, B12FOL ####[facility] Mrdkvlwqct[address] [place] [address]Dr. Ricardo Rocha POINT OF CARE GLUCOSEon 05-22 Glucose [Mass/Vol] 238 mg/dL Critically high -[address] [place] [address] Comment on above: Performed By: #### P OCGLUC ####[facility] Egximqkdbb38[address] [place] [phone]. Ricardo Rocha Glucose [Mass/Vol] 146 mg/dL Critically high -106 [facility] Comment on above: Performed By: #### P OCGLUC ####[facility] Oqwvghcdht0389 [place] [address]Dr. Ricardo Rocha Glucose [Mass/Vol] 143 mg/dL Critically high -106 [facility] Comment on above: Performed By: #### P OCGLUC ####[facility] Mdxdeiqpwf5786 [place] [address]Dr. Ricardo Rocha Glucose [Mass/Vol] 205 mg/dL Critically high -[address] [place] [address] Comment on above: Performed By: #### P OCGLUC ####[facility] Ndslezqvlc7754 [place] [address]Dr. Ricardo Rocha Glucose [Mass/Vol] 227 mg/dL Critically high -[address] [place] [address] Comment on above: Performed By: #### P OCGLUC ####[facility] Rjwpddylya1696 [place] [address]Dr. Ricardo Aj PROF 14(COMP METB)on 022 Albumin [Mass/Vol] 1.5 g/dL Critically low 3.4-5.0 [facility] Comment on above: Performed By: #### C MP ####[facility] Kwmmciwdfq65[address] [place] [address]Dr. Ricardo Aj Albumin/Globulin [Mass ratio] 0.3 {ratio} Normal [facility] Comment on above: Performed By: #### C MP ####[facility] Eujbfjtucg6893 [place] [address]Dr. Ricardo Rocha ALP [Catalytic activity/Vol] 136 U/L Critically high 46-116 [facility] Comment on above: Performed By: #### C MP ####[facility] J[address] [place], [place] [address]Mc. Ricardo Rocha ALT [Catalytic activity/Vol] 18 U/L Normal 14-59 [facility] Comment on above: Performed By: #### C MP ####[facility] Viqpwigjci[address] [place], [place] [address]Av. Ricardo Rocha Anion gap [Moles/Vol] 10.2 mmol/L Normal [facility] Comment on above: Performed By: #### C MP ####[facility] Qcieetpfiq7643 [place] [phone]. Ricardo Rocha AST [Catalytic activity/Vol] 37 U/L Normal 15-37 [facility] Comment on above: Performed By: #### C MP ####[facility] Nowntgvwji4215 [place] [address]Dr. Ricardo Rocha Bilirubin [Mass/Vol] 0.4 mg/dL Normal 0.2-1.0 [facility] Comment on above: Performed By: #### C MP ####[facility] Erskbelvmz77[address] [place] [address]Dr. Ricardo Rocha Calcium [Mass/Vol] 8.0 mg/dL Critically low 8.5-10.1 [facility] Comment on above: Performed By: #### C MP ####[facility] Nrsunsftmr64[address] [place] [address]Dr. Ricardo Rocha Chloride [Moles/Vol] 110 mmol/L Critically high 98-107 [facility] Comment on above: Performed By: #### C MP ####[facility] Ibdkeguwpm7974 [place] [address]Dr. Ricardo Rocha CO2 [Moles/Vol] 18.2 mmol/L Critically low 21.0-32.0 [facility] Comment on above: Performed By: #### C MP ####[facility] V[address]vxxp[address] [place], [place] [address]Dr. Ricardo Rocha Creatinine [Mass/Vol] 1.76 mg/dL Critically high 0.55-1.02 [facility] Comment on above: Performed By: #### C MP ####[facility] Xnpqmtibwk7[address] [place] [address]Dr. Ricardo Rocha EGFR-AF EGYPTIAN 35 mL/min/1.73m2 Critically low >=60 [facility] Comment on above: Performed By: #### C MP ####[facility] Ocvcayshtg4[address] [place] [address]Dr. Ricardo Rocha EGFR-NON AF EGYPTIAN 29 mL/min/1.73m2 Critically low >=60 [facility] Comment on above: Performed By: #### C MP ####[facility] Soicpvtspy6879 [place] [address]Dr. Ricardo Rocha Globulin (S) [Mass/Vol] 4.7 g/dL Normal [facility] Comment on above: Performed By: #### C MP ####[facility] Iharntzcxv5597 [place] [address]Dr. Ricardo Rocha Glucose [Mass/Vol] 223 mg/dL Critically high 74-106 T [facility] Comment on above: Performed By: #### C MP ####[facility] Jvdmxgvqbr9001 [place] [address]Dr. Ricardo Rocha Potassium [Moles/Vol] 3.4 mmol/L Critically low 3.5-5.1 [facility] Comment on above: Performed By: #### C MP ####[facility] Bgrcxqebns9413 [place] [phone]. Ricardo Rocha Protein [Mass/Vol] 6.2 g/dL Critically low 6.4-8.2 [facility] Comment on above: Performed By: #### C MP ####[facility] Futzwpxrmd2756 [place] [address]Dr. Ricardo Rocha Sodium [Moles/Vol] 135 mmol/L Critically low 136-145 [facility] Comment on above: Performed By: #### C MP ####[facility] Gokfmfxdta4227 [place] [address]Dr. Ricardo Rocha Urea nitrogen [Mass/Vol] 33.0 mg/dL Critically high 7.0-18.0 [facility] Comment on above: Performed By: #### C MP ####[facility] Caryiixmaj6[address] [place] [address]Dr. Ricardo Rocha Urea nitrogen/Creatinine [Mass ratio] 18.8 mg/mg Normal [facility] Comment on above: Performed By: #### C MP ####[facility] Aerjyvlxlz8[address] [place] [address]Dr. Nanomarcial Rocha VANCOMYCIN TROUGHon 06-13-20 22 VANCOMYCIN TROUGH 15.2 ug/ml Normal 5.0-20.0 [facility] Comment on above: Performed By: #### V ANCT ####[facility] Scxpfaifad2909 [place] [address]Dr. Ricardo Rocha VIT B12 AND FOLATEon 022 Cobalamin (Vitamin B12) [Mass/Vol] 874.0 pg/mL Normal 193.0-986.0 [facility] Comment on above: Performed By: #### F ETIBC, B12FOL ####[facility] Iedygcmdfd[address] [place], [place] [address]Dr. Ricardo Rocha FOLATE 6.60 ng/mL Critically low 8.60-58.90 The [facility] Comment on above: Performed By: #### F ETIBC, B12FOL ####[facility] Zlnksmxeuu54[address] [place], [place] [address]Dr. Ricardo Rocha XR FOOT LT MIN 3 VIEWSon XR FOOT LT MIN 3 VIEWS Normal [facility] CBC W MANUAL DIFFon 06-12-20 22 ATYPICAL LYMPH # Normal The [facility] Comment on above: Performed By: #### C BCRED ####[facility] Wqjlwefsqm1702 [place] [address]Dr. Ricardo Rocha ATYPICAL LYMPH % Normal [facility] Comment on above: Performed By: #### C BCRED ####[facility] Ljdpdfqovj[address] [place], [place] [address]Dr. Ricardo Rocha BAND # 1.9 103/ul Critically high 0.0-0.[address] [facility] Comment on above: Performed By: #### C DWAINE ####[facility] Anmmagankz[address] [place], [place] [address]Dr. Ricardo Rocha BAND % 17 % Critically high 0-[address] [facility] Comment on above: Performed By: #### C BCRED ####[facility] Skusdmyguc[address] [place] [phone]. Ricardo Rocha BASOM # 0.00 103/ul Normal 0.00-0.10 [facility] Comment on above: Performed By: #### C BCRED ####[facility] Kdzwcomess6772 [place] [address]Dr. Ricardo Rocha BASOM % 0.0 % Critically low 0.2-2.0 The [facility] Comment on above: Performed By: #### C BCRED ####[facility] Llxhgdunpw1289 [place] [address]Dr. Ricardo Rocha BLAST # Normal [facility] Comment on above: Performed By: #### C DWAINE ####[facility] Ndezjzpags6740 [place] [address]Dr. Ricardo Rocha BLAST % Normal [facility] Comment on above: Performed By: #### C DAWINE ####[facility] Fkrntzoxno5660 [place] [address]Dr. Ricardo Rocha CORRECTED WBC Normal 4.0-11.0 [facility] Comment on above: Performed By: #### C DWAINE ####[facility] Qqwfyyxjnc5183 [place] [address]Dr. Ricardo Rocha EOS # 0.00 103/ul Normal 0.00-0.70 [facility] Comment on above: Performed By: #### C BCRED ####[facility] Kyashrrrcw6243 [place] [address]Dr. Ricardo Rocha EOS% 0.0 % Critically low 0.9-7.0 The [facility] Comment on above: Performed By: #### C BCRED ####[facility] Xiaeqqaefm0044 [place] [address]Dr. Ricardo Rocha HCT 28.0 % Critically low 36.0-48.0 [facility] Comment on above: Performed By: #### C BCRED ####[facility] Dtealzwfgg[address] [place], [place] [address]Gi. Ricardo Rocha HGB 8.6 g/dl Critically low 12.0-16.0 The [facility] Comment on above: Performed By: #### C DWAINE ####[facility] Aziuxxvvug6[address] [place], [place] [address]Dd. Ricardo Rocha HYPOCHROMASIA SLIGHT Normal [facility] Comment on above: Performed By: #### C DWAINE ####[facility] Mpudfqzzvt95[address] [place], [place] [address]Hu. Ricardo Rcoha LYMPHM # 0.77 103/ul Critically low 1.20-3.[address] [facility] Comment on above: Performed By: #### C DWAINE ####[facility] Oslwxzuhre6797 [place] [phone]. Ricardo Rocha LYMPHM% 7.0 % Critically low 20.5-60.0 The [facility] Comment on above: Performed By: #### C DWAINE ####[facility] Qorwlrstza4[address] [place], [place] [address]Rx. Ricardo Rocha MCH 25.1 pg Critically low 26.7-34.0 The [facility] Comment on above: Performed By: #### C DWAINE ####[facility] Envnphcntb5985 [place] [phone]. Ricardo Rocha MCHC 30.7 g/dl Normal 29.9-35.2 [facility] Comment on above: Performed By: #### C DWAINE ####[facility] Jrnshuklyp3089 [place], [place] [address]Vi. Ricardo Rocha MCV 81.9 fL Normal 81.0-99.0 [facility] Comment on above: Performed By: #### C DWAINE ####[facility] Vesiaxgynu7498 [place] [address]Dr. Ricardo Rocha METAMYELOCYTE # Normal [facility] Comment on above: Performed By: #### C DWAINE ####[facility] Disauwnfsw2683 [place] [phone]. Ricardo Rocha METAMYELOCYTE % Normal [facility] Comment on above: Performed By: #### C DWAINE ####[facility] Bzxsaaasec2864 [place] [address]Dr. Ricardo Rocha MONOM# 0.11 103/ul Critically low 0.30-0.[address] [facility] Comment on above: Performed By: #### C DWAINE ####[facility] Cpqwnfufdx3363 [place] [address]Dr. Ricardo Rocha MONOM% 1.0 % Critically low 1.7-12.0 [facility] Comment on above: Performed By: #### C DWAINE ####[facility] Tvinnyuuhl9479 [place] [address]Dr. Ricardo Rocha MPV 12.6 fL Normal 9.5-13.5 [facility] Comment on above: Performed By: #### C DWAINE ####[facility] Pxdihadgzk8993 [place] [address]Dr. Ricardo Rocha MYELOCYTE # Normal [facility] Comment on above: Performed By: #### C DWAINE ####[facility] Auryvtvflp0984 [place] [phone]. Ricardo Rocha MYELOCYTE % Normal [facility] Comment on above: Performed By: #### C DWAINE ####[facility] Yzqrfanexa6200 [place] [address]Dr. Ricardo Rocha NRBC Normal [facility] Comment on above: Performed By: #### C DWAINE ####[facility] Irtzestpok2473 [place] [phone]. Ricardo Rocha PLT 140 103/ul Critically low 150-450 [facility] Comment on above: Performed By: #### C DWAINE ####[facility] Sbvmkgkadt2087 [place] [address]Dr. Ricardo Rocha RBC 3.42 106/ul Critically low 4.20-5.[address] [facility] Comment on above: Performed By: #### C DWAINE ####[facility] Tdbvbyymtb2722 [place] [phone]. Ricardo Rocha RDW 13.7 % Normal 11.0-15.0 [facility] Comment on above: Performed By: #### C BCMAN ####[facility] Jhezwsphnt3911 [place] [address]Dr. Ricardo Rocha SEG # 8.25 103/ul Critically high 1.40-6.50 [facility] Comment on above: Performed By: #### C BCMAN ####[facility] V[address]rrph[address] [place] [address]Dr. Ricardo Rocha SEG % 75.0 % Normal 43.0-75.0 [facility] Comment on above: Performed By: #### C BCMAN ####[facility] Osrhsnzppi[address] [place] [address]Dr. Ricardo Rocha WBC 11.0 103/ul Normal 4.0-11.0 [facility] Comment on above: Performed By: #### C BCMAN ####[facility] Svksqphexb54[address] [place] [address]Dr. Ricardo Rocha POINT OF CARE GLUCOSEon 05-22 Glucose [Mass/Vol] 200 mg/dL Critically high 74-106 [facility] Comment on above: Performed By: #### P OCGLUC ####[facility] Eelvfhthrb[address] [place], [place] [address]Dr. Ricardo Rocha Glucose [Mass/Vol] 165 mg/dL Critically high 74-106 [facility] Comment on above: Performed By: #### P OCGLUC ####[facility] Mzczdrqnjg[address] [place] [address]Dr. Ricardo Rocha Glucose [Mass/Vol] 152 mg/dL Critically high 74-106 [facility] Comment on above: Performed By: #### P OCGLUC ####[facility] Rtlkjlvbnb[address] [place], [place] [address]Dr. Ricardo Rocha Glucose [Mass/Vol] 154 mg/dL Critically high 74-106 [facility] Comment on above: Performed By: #### P OCGLUC ####[facility] Nvyyfsmdlr[address] [place], [place] [address]Dr. Ricardo Rocha PROF 14(COMP METB)on 022 Albumin [Mass/Vol] 1.9 g/dL Critically low 3.4-5.0 [facility] Comment on above: Performed By: #### C MP ####[facility] Kgzaikznti[address] [place] [address]Dr. Ricardo Rocha Albumin/Globulin [Mass ratio] 0.4 {ratio} Normal [facility] Comment on above: Performed By: #### C MP ####[facility] Pgxykxkqrw[address] [place], [place] [address]Dr. Ricardo Rocha ALP [Catalytic activity/Vol] 68 U/L Normal 46-116 [facility] Comment on above: Performed By: #### C MP ####[facility] Clsttclvaj[address] [place], [place] [address]Dr. Ricardo Rocha ALT [Catalytic activity/Vol] 16 U/L Normal 14-59 [facility] Comment on above: Performed By: #### C MP ####[facility] Yopffrphip[address] [place], [place] [address]Dr. Ricardo Rocha Anion gap [Moles/Vol] 15.1 mmol/L Normal [facility] Comment on above: Performed By: #### C MP ####[facility] Lixtpjugoe[address] [place], [place] [address]Dr. Ricardo Rocha AST [Catalytic activity/Vol] 26 U/L Normal 15-37 [facility] Comment on above: Performed By: #### C MP ####[facility] Dxqbaaixau46[address] [place], [place] [address]Dr. Ricardo Rocha Bilirubin [Mass/Vol] 0.3 mg/dL Normal 0.2-1.0 [facility] Comment on above: Performed By: #### C MP ####[facility] Lihoonmsfb[address] [place], [place] [address]Dr. Ricardo Rocha Calcium [Mass/Vol] 8.0 mg/dL Critically low 8.5-10.1 [facility] Comment on above: Performed By: #### C MP ####[facility] Jsoirlnjoq97[address] [place], [place] [address]Dr. Ricardo Rocha Chloride [Moles/Vol] 110 mmol/L Critically high 98-107 [facility] Comment on above: Performed By: #### C MP ####[facility] Begrhrwpga70[address] [place] [address]Dr. Ricardo Rocha CO2 [Moles/Vol] 18.0 mmol/L Critically low 21.0-32.0 [facility] Comment on above: Performed By: #### C MP ####[facility] Wcghcjemep[address] [place], [place] [address]Dr. Ricardo Rocha Creatinine [Mass/Vol] 1.97 mg/dL Critically high 0.55-1.02 [facility] Comment on above: Performed By: #### C MP ####[facility] Weeefonbof[address] [place], [place] [address]Dr. Ricardo Rocha EGFR-AF EGYPTIAN 31 mL/min/1.73m2 Critically low >=60 [facility] Comment on above: Performed By: #### C MP ####[facility] Jwyrugfjes9[address] [place], [place] [address]Dr. Ricardo Rocha EGFR-NON AF EGYPTIAN 26 mL/min/1.73m2 Critically low >=60 [facility] Comment on above: Performed By: #### C MP ####[facility] Cfbgdxfgrs258[address] [place], [place] [address]Dr. Ricardo Rocha Globulin (S) [Mass/Vol] 5.2 g/dL Normal [facility] Comment on above: Performed By: #### C MP ####[facility] Iiedhghjlg017[address] [place], [place] [address]Dr. Ricardo Rocha Glucose [Mass/Vol] 146 mg/dL Critically high 74-106 [facility] Comment on above: Performed By: #### C MP ####[facility] Ykotqyfbpf346[address] [place], [place] [address]Dr. Ricardo Rocha Potassium [Moles/Vol] 3.1 mmol/L Critically low 3.5-5.1 [facility] Comment on above: Performed By: #### C MP ####[facility] Ycloknfncm839[address] [place], [place] [address]Dr. Ricardo Rocha Protein [Mass/Vol] 7.1 g/dL Normal 6.4-8.2 The [facility] Comment on above: Performed By: #### C MP ####[facility] Hgqsmxhopv49[address] [place] [address]Dr. Ricardo Rocha Sodium [Moles/Vol] 140 mmol/L Normal 136-145 [facility] Comment on above: Performed By: #### C MP ####[facility] Wozjyddowv[address] [place] [address]Dr. Ricardo Rocha Urea nitrogen [Mass/Vol] 30.0 mg/dL Critically high 7.0-18.0 [facility] Comment on above: Performed By: #### C MP ####[facility] Nrxdzcnqdv[address] [place], [place] [address]Dr. Ricardo Aj Urea nitrogen/Creatinine [Mass ratio] 15.2 mg/mg Normal [facility] Comment on above: Performed By: #### C MP ####[facility] Nuolgfkhiz9[address] [place], [place] [address]Dr. Ricardo Aj CBC W MANUAL DIFFon 06-11-20 22 ATYPICAL LYMPH # Normal [facility] Comment on above: Performed By: #### C BCMAN ####[facility] Ebikxwkavj[address] [place], [place] [address]Dr. Ricardo Aj ATYPICAL LYMPH % Normal [facility] Comment on above: Performed By: #### C BCMAN ####[facility] Erooheoeec[address] [place], [place] [address]Dr. Ricardo Aj BAND # 1.1 103/ul Critically high 0.0-0.[address] [facility] Comment on above: Performed By: #### C BCMAN ####[facility] Yqkorkwbcn[address] [place] [address]Dr. Ricardo Rocha BAND % 12 % Critically high 0-[address] [facility] Comment on above: Performed By: #### C BCMAN ####[facility] Ozqigqyudc75[address] [place] [address]Dr. Ricardo Rocha BASOM # 0.00 103/ul Normal 0.00-0.10 [facility] Comment on above: Performed By: #### C DWAINE ####[facility] Wawjxwyyjx54[address] [place] [address]Dr. Ricardo Rocha BASOM % 0.0 % Critically low 0.2-2.0 [facility] Comment on above: Performed By: #### C DWAINE ####[facility] Fwgxtjhwuj5854 [place] [address]Dr. Ricardo Rocha BLAST # Normal [facility] Comment on above: Performed By: #### C BCRED ####[facility] Dizfcoyrug[address] [place] [address]Dr. Ricardo Rocha BLAST % Normal [facility] Comment on above: Performed By: #### C DWAINE ####[facility] Nbgojmgqmd6[address] [place], [place] [address]Dr. Ricardo Rocha CORRECTED WBC Normal 4.0-11.0 [facility] Comment on above: Performed By: #### C DWAINE ####[facility] Itpbcfvyxe719[address] [place], [place] [address]Dr. Ricardo Rocha EOS # 0.00 103/ul Normal 0.00-0.70 [facility] Comment on above: Performed By: #### C DWAINE ####[facility] Quwytdwwqp[address] [place], [place] [address]Dr. Ricardo Rocha EOS% 0.0 % Critically low 0.9-7.0 [facility] Comment on above: Performed By: #### C DWAINE ####[facility] Kpieqixhta4340[address] [place], [place] [address]Dr. Ricardo Rocha HCT 32.6 % Critically low 36.0-48.0 The [facility] Comment on above: Performed By: #### C DWAINE ####[facility] Qrihorphon[address] [place], [place] [address]Dr. Ricardo Rocha HGB 10.5 g/dl Critically low 12.0-16.0 [facility] Comment on above: Performed By: #### C DWAINE ####[facility] Vqvpnzsosz[address] [place], [place] [address]Dr. Ricardo Rocha LYMPHM # 0.46 103/ul Critically low 1.20-3.[address] [facility] Comment on above: Performed By: #### C DWAINE ####[facility] Khnmxgvcxa6[address] [place] [address]Dr. Ricardo Rocha LYMPHM% 5.0 % Critically low 20.5-60.0 [facility] Comment on above: Performed By: #### C DWAINE ####[facility] Sqmjhqqpub9[address] [place] [address]Dr. Ricardo Rocha MCH 25.3 pg Critically low 26.7-34.0 [facility] Comment on above: Performed By: #### C DWAINE ####[facility] Ynuehuwcph[address] [place], [place] [address]Dr. Ricardo Rocha MCHC 32.2 g/dl Normal 29.9-35.2 [facility] Comment on above: Performed By: #### C DWAINE ####[facility] Ortmjnlcmj[address] [place], [place] [address]Dr. Ricardo Rocha MCV 78.6 fL Critically low 81.0-99.0 [facility] Comment on above: Performed By: #### C DWAINE ####[facility] Ippiqoxwgc[address] [place], [place] [address]Dr. Ricardo Rocha METAMYELOCYTE # Normal The [facility] Comment on above: Performed By: #### C DWAINE ####[facility] Spktdvarov96[address] [place], [place] [address]Dr. Ricardo Rocha METAMYELOCYTE % Normal [facility] Comment on above: Performed By: #### C BCRED ####[facility] Riatvaykwj[address] [place] [address]Dr. Ricardo Rocha MONOM# 0.28 103/ul Critically low 0.30-0.[address] [facility] Comment on above: Performed By: #### C DWAINE ####[facility] Jnouspttmw2[address] [place] [address]Dr. Ricardo Rocha MONOM% 3.0 % Normal 1.7-12.0 [facility] Comment on above: Performed By: #### C DWAINE ####[facility] Wmwynxhmui32[address] [place], [place] [address]Xz. Ricardo Rocha MPV 11.4 fL Normal 9.5-13.5 [facility] Comment on above: Performed By: #### C DWAINE ####[facility] Skvkxojsks8[address] [place], [place] [address]Jh. Ricardo Rocha MYELOCYTE # Normal [facility] Comment on above: Performed By: #### C DWAINE ####[facility] Eieehmuxxc69[address] [place] [phone]. Ricardo Rocha MYELOCYTE % Normal [facility] Comment on above: Performed By: #### C DWAINE ####[facility] Hxucstzrcv[address] [place] [address]Dr. Ricardo Rocha NRBC Normal [facility] Comment on above: Performed By: #### Esteban ISIDRO ####[facility] Pcqshvtzyx77[address] [place] [phone]. Ricardo Rocha PLT 154 103/ul Normal 150-450 [facility] Comment on above: Performed By: #### C DWAINE ####[facility] Fkefhcetga63[address] [place] [address]Dr. Ricardo Rocha RBC 4.15 106/ul Critically low 4.20-5.[address] [facility] Comment on above: Performed By: #### Esteban ISIDRO ####[facility] Uzllbmxomp4[address] [place] [address]Dr. Ricardo Rocha RDW 12.8 % Normal 11.0-15.0 [facility] Comment on above: Performed By: #### C DWAINE ####[facility] Obiigldcyv5072 [place] [address]Dr. Ricardo Rocha SEG # 7.36 103/ul Critically high 1.40-6.50 The [facility] Comment on above: Performed By: #### C DWAINE ####[facility] Hjkiulkrax9427 [place] [phone]. Ricardo Rocha SEG % 80.0 % Critically high 43.0-75.[address] [facility] Comment on above: Performed By: #### C DWAINE ####[facility] Xhabetelmo0242 [place], [place] [address]Xq. Ricardo Rocha WBC 9.2 103/ul Normal 4.0-11.0 [facility] Comment on above: Performed By: #### C BCMAN ####[facility] Sugnkarine[address] [place], [place] [address]Ce. Ricardo Rocha CT HEAD WO CONon 06-11-2022 CT HEAD WO CON Normal [facility] CULTURE ANAEROBICon 06-11-20 CULTURE ANAEROBIC Culture Observations : NO GROWTH OF ANAEROBES AT 72 HOURS. Normal [facility] Comment on above: Performed By: #### A NACX ####[facility] Arpmhaaqsx[address] [place], [place] [id number]. Ricardo [facility] CULTURE ANAEROBIC Culture Observations : NO GROWTH OF ANAEROBES AT 72 HOURS. Normal [facility] Comment on above: Performed By: #### A NACX ####[facility] Wskixwyevr[address] [place], [place] [phone]. Ricardo Rocha CULTURE BLOODon 06-11-2022 Microscopic examination of blood, culture Culture Observations: Aerobic bottle positive only. Culture Observations: No growth at 5 days in anaerobic bottle Culture Observations: See for Susceptibility testing. Isolate 1 Staphylococcus aureus Growth of Normal [facility] Comment on above: Performed By: #### B LDCX2 ####[facility] Aazanqtnpo97[address] [place] [phone]. Ricardo Rocha CULTURE URINEon 06-11-2022 CULTURE URINE Culture Observations : LIGHT GROWTH OF MIXED GENITAL SHAHLA. NO POTENTIAL PATHOGENS SEEN. Normal [facility] Comment on above: Performed By: #### U RCX ####[facility] Fxsqoiibfx[address] [place], [place] [phone]. Ricardo Rocha Covid-19 PCR (CVDTB)on 05-22 SARS-CoV-2 (COVID-19) RNA ADRIEL+probe Ql (Unsp spec) Not detected Normal NOT DETECTED [facility] Comment on above: Result Comment: When diagnostic [...] for this test is supported by the [place] of Health and Human Service's declaration that [...] be used). Performed By: #### C NEGRITO ####[facility] Cwuedwjioq[address] [place], [place] [address]Dr. Ricardo Rocha ER URINE PROFILEon 2 Bilirubin Ql (U) Negative Normal NEGATIVE The [facility] Comment on above: Performed By: #### SHAYNA ELENA ####[facility] Ouvxhpktry[address] [place], [place] [address]Dr. Ricardo Rocha Clarity (U) CLEAR Normal CLEAR [facility] Comment on above: Performed By: #### SHAYNA ELENA ####[facility] Btwszctyjn[address] [place], [place] [address]Dr. Ricardo Rocha Color (U) LT. YELLOW Normal YELLOW [facility] Comment on above: Performed By: #### SHAYNA ELENA ####[facility] Znvhzkblng197[address] [place], [place] [address]Dr. Ricardo Rocha ERUAHD A micrscopic examina tion will be performed if indicated. Normal [facility] Comment on above: Performed By: #### SHAYNA ELENA ####[facility] Lxvtpxuiwn[address] [place], [place] [address]Dr. Ricardo Rocha Glucose Ql (U) >1000 Abnormal NEGATIVE The [facility] Comment on above: Performed By: #### SHAYNA ELENA ####[facility] Ffurvpsuuj[address] [place], [place] [address]Dr. Ricardo Rocha Hemoglobin Ql (U) LARGE Abnormal NEGATIVE The [facility] Comment on above: Performed By: #### JOSLYN ELENARO ####[facility] Uqtrzhpcgg[address] [place], [place] [address]Dr. Ricardo Rocha Ketones Ql (U) 15 mg/dl Abnormal NEGATIVE The [facility] Comment on above: Performed By: #### LOLY ELENAICRO ####[facility] Lqilmjwzfq[address] [place], [place] [address]Dr. Ricardo Rocha LEUKOCYTES Negative Normal NEGATIVE [facility] Comment on above: Performed By: #### JOSLYN ELENARO ####[facility] Fczxwyyzff[address] [place], [place] [address]Dr. Ricardo Rocha Nitrite Ql (U) Negative Normal NEGATIVE The [facility] Comment on above: Performed By: #### JOSLYN ELENARO ####[facility] K[address]odryzqv[address] [place], [place] [address]Dr. Ricardo Rocha pH (U) 6.0 [pH] Normal 5-9 [facility] Comment on above: Performed By: #### JOSLYN ELENARO ####[facility] Xmpezbwvcj7[address] [place], [place] [address]Dr. Ricardo Rocha Protein (U) [Mass/Vol] 100 mg/dL Abnormal NEGATIVE/ TRACE [facility] Comment on above: Performed By: #### LOLY ELENAICRO ####[facility] Imkakrzwig[address] [place], [place] [address]Dr. Ricardo Rocha SPEC GRAVITY 1.020 Normal 1.005-<=1.0 25 [facility] Comment on above: Performed By: #### JOSLYN ELENARO ####[facility] Xpsvshodyy[address] [place], [place] [address]Dr. Ricardo Rocha UR MICRO IND INDICATED Normal [facility] Comment on above: Performed By: #### LOLY ELENAICRO ####[facility] Mhmeassezu[address] [place], [place] [address]Dr. Ricardo Rocha Urobilinogen Qn (U) 0.2 {Madeleine'U}/dL Normal 0.2 - 1. 0 [facility] Comment on above: Performed By: #### E SHAYNA HINOJOSA ####[facility] Kqvwcbsprl[address] [place] [address]Dr. Ricardo Rocha GRAM STAINon 06-11-2022 DIPHTHEROIDS Normal [facility] Comment on above: Performed By: #### G STAIN ####[facility] Jieoozelda[address] [place] [address]Dr. Ricardo Rocha EPITHELIALS Normal [facility] Comment on above: Performed By: #### G STAIN ####[facility] Ytacavcjpg[address] [place], [place] [address]Dr. Ricardo Rocha FUNGAL ELEMENTS Normal [facility] Comment on above: Performed By: #### G STAIN ####[facility] Krxgoyjjeb[address] [place], [place] [address]Dr. Ricardo Rocha GRAM NEG BACILLI Normal The [facility] Comment on above: Performed By: #### G STAIN ####[facility] Ylwaqjxtsv[address] [place], [place] [address]Dr. Ricardo Rocha GRAM NEG DIPPLOCOCCI Normal [facility] Comment on above: Performed By: #### G STAIN ####[facility] Kohqbffhhj[address] [place], [place] [address]Dr. Ricardo Rocha GRAM POS BACILLI Normal The [facility] Comment on above: Performed By: #### G STAIN ####[facility] Upozaccnit[address] [place], [place] [address]Dr. Ricardo Rocha GRAM POSITIVE COCCI MANY Normal [facility] Comment on above: Performed By: #### G STAIN ####[facility] Hmyafueqyr[address] [place], [place] [address]Dr. Ricardo Rocha GRAM STAIN SOURCE Left great toe tissu e after washout-clean Normal [facility] Comment on above: Performed By: #### G STAIN ####[facility] Zklfmxwzba[address] [place], [place] [address]Dr. Ricardo Rocha GS_DIPTH Normal [facility] Comment on above: Performed By: #### G STAIN ####[facility] Uibxymdfln[address] [place] [phone]. Ricardo Rocha WBC RARE Normal [facility] Comment on above: Performed By: #### G STAIN ####[facility] Shpketpcgg7662 [place] [address]Dr. Ricardo Rocha DIPHTHEROIDS Normal [facility] Comment on above: Performed By: #### G STAIN ####[facility] Ebxoadxfjw9354 [place] [address]Dr. Ricardo Rocha EPITHELIALS Normal [facility] Comment on above: Performed By: #### G STAIN ####[facility] Ujgnmpkaxk[address] [place] [address]Dr. Ricardo Rocha FUNGAL ELEMENTS Normal [facility] Comment on above: Performed By: #### G STAIN ####[facility] Xuuagytpwb[address] [place], [place] [address]Dr. Ricardo Rocha GRAM NEG BACILLI Normal The [facility] Comment on above: Performed By: #### G STAIN ####[facility] Nvgnnhqema[address] [place], [place] [address]Dr. Ricardo Rocha GRAM NEG DIPPLOCOCCI Normal [facility] Comment on above: Performed By: #### G STAIN ####[facility] Wanqehgfuv[address] [place], [place] [address]Dr. Ricardo Rocha GRAM POS BACILLI Normal The [facility] Comment on above: Performed By: #### G STAIN ####[facility] Obqoiwfaea1854 [place] [address]Dr. Ricardo Rocha GRAM POSITIVE COCCI RARE Normal [facility] Comment on above: Performed By: #### G STAIN ####[facility] Rwtzufwfpj9486 [place] [address]Dr. Ricardo Rocha GRAM STAIN SOURCE Left great toe Normal [facility] Comment on above: Performed By: #### G STAIN ####[facility] Asfjiafqhr7[address] [place], [place] [address]Dr. Ricardo Rocha GS_DIPTH Normal [facility] Comment on above: Performed By: #### G STAIN ####[facility] Oqbkaetnjk[address] [place], [place] [address]Dr. Ricardo Rocha WBC RARE Normal [facility] Comment on above: Performed By: #### G STAIN ####[facility] Vbzmsoguhc0498 [place] [address]Dr. Ricardo Rocha DIPHTHEROIDS Normal [facility] Comment on above: Performed By: #### G STAIN ####[facility] Fildudosdp7293 [place] [phone]. Ricardo Rocha EPITHELIALS Normal [facility] Comment on above: Performed By: #### G STAIN ####[facility] Vwfqgrqzwq[address] [place], [place] [address]Dr. Ricardo Rocha FUNGAL ELEMENTS Normal [facility] Comment on above: Performed By: #### G STAIN ####[facility] Yzclifjcqc[address] [place], [place] [address]Dr. Ricardo Rocha GRAM NEG BACILLI Normal The [facility] Comment on above: Performed By: #### G STAIN ####[facility] [address]woqghxnr[address] [place], [place] [address]Dr. Ricardo Rocha GRAM NEG DIPPLOCOCCI Normal [facility] Comment on above: Performed By: #### G STAIN ####[facility] Qtsjaqxrrz[address] [place], [place] [address]Dr. Ricardo Rocha GRAM POS BACILLI Normal The [facility] Comment on above: Performed By: #### G STAIN ####[facility] Mnhnroepjt[address] [address] [place], [place] [address]Dr. Ricardo Rocha GRAM POSITIVE COCCI FEW Normal [facility] Comment on above: Performed By: #### G STAIN ####[facility] [address] [place] [id number]. Ricardo Rocha GRAM STAIN SOURCE Left great toe abscess Normal [facility] Comment on above: Performed By: #### G STAIN ####[facility] Poisqskynj[address] [place], [place] [address]Dr. Ricardo Rocha GS_DIPTH Normal [facility] Comment on above: Performed By: #### G STAIN ####[facility] Lgrfmaqreu[address] [place], [place] [address]Dr. Ricardo Rocha WBC FEW Normal [facility] Comment on above: Performed By: #### G STAIN ####[facility] Cbgldkwugd[address] [place], [place] [address]Dr. Ricardo Rocha LACTATE/LACTIC ACIDon 2021 Lactate [Moles/Vol] 2.2 mmol/L Critically high 0.4-1.9 [facility] Comment on above: Performed By: #### L ACT ####[facility] Yjmutryldw[address] [place], [place] [address]Dr. Ricardo Rocha POINT OF CARE GLUCOSEon 05-22 Glucose [Mass/Vol] 133 mg/dL Critically high -106 [facility] Comment on above: Performed By: #### P OCGLUC ####[facility] Bmpqiemyvz[address] [place], [place] [address]Dr. Ricardo Rocha Glucose [Mass/Vol] 215 mg/dL Critically high [address] [place] [address] Comment on above: Performed By: #### P OCGLUC ####[facility] Svsbeopxgp97[address] [place], [place] [address]Dr. Ricardo Rocha Glucose [Mass/Vol] 207 mg/dL Critically high -106 [facility] Comment on above: Performed By: #### P OCGLUC ####[facility] Igjjrlryvn8[address] [place], [place] [address]Dr. Ricardo Rocha Glucose [Mass/Vol] 314 mg/dL Critically high [address] [place] [address] Comment on above: Performed By: #### P OCGLUC ####[facility] Isaaussgjx6310[address] [place], [place] [address]Dr. Ricardo Rocha Glucose [Mass/Vol] 496 mg/dL Critically high [address] [place] [address] Comment on above: Performed By: #### P OCGLUC ####[facility] Baegyemdjz[address] [place], [place] [address]Dr. Ricardo Rocha Glucose [Mass/Vol] 561 mg/dL Critically high [address] [place] [address] Comment on above: Result Comment: Prev iously Confirmed Performed By: #### P OCGLUC ####[facility] Mrczlctaor[address] [place], [place] [address]Dr. Ricardo Rocha PROF 14(COMP METB)on 022 Albumin [Mass/Vol] 2.4 g/dL Critically low 3.4-5.0 [facility] Comment on above: Performed By: #### C MP ####[facility] [address]jorxawszj[address] [place] [address]Dr. Ricardo Rocha Albumin/Globulin [Mass ratio] 0.4 {ratio} Normal [facility] Comment on above: Performed By: #### C MP ####[facility] Lcpsdhjlqn9[address] [place] [address]Dr. Ricardo Rocha ALP [Catalytic activity/Vol] 82 U/L Normal 46-116 [facility] Comment on above: Performed By: #### C MP ####[facility] Irjadelaph[address] [place], [place] [address]DrIrina Rocha ALT [Catalytic activity/Vol] 12 U/L Critically low 14-59 [facility] Comment on above: Performed By: #### C MP ####[facility] Gadlzbuqie8616[address] [place], [place] [address]DrIrina Rocha Anion gap [Moles/Vol] 15.1 mmol/L Normal [facility] Comment on above: Performed By: #### C MP ####[facility] Iwkgeakabf814[address] [place], [place] [address]DrIrina Rocha AST [Catalytic activity/Vol] 14 U/L Critically low 15-37 [facility] Comment on above: Performed By: #### C MP ####[facility] Ndygsqnuve86[address] [place], [place] [address]DrIrina Rocha Bilirubin [Mass/Vol] 0.4 mg/dL Normal 0.2-1.0 [facility] Comment on above: Performed By: #### C MP ####[facility] Bpldeyteqw[address] [place], [place] [address]DrIrina Rocha Calcium [Mass/Vol] 8.8 mg/dL Normal 8.5-10.1 [facility] Comment on above: Performed By: #### C MP ####[facility] Lsszgasyvq911[address] [place], [place] [address]Dr. Ricardo Rocha Chloride [Moles/Vol] 105 mmol/L Normal 98-107 [facility] Comment on above: Performed By: #### C MP ####[facility] Dfovpztfvt[address] [place] [address]Dr. Ricardo Rocha CO2 [Moles/Vol] 21.2 mmol/L Normal 21.0-32.0 [facility] Comment on above: Performed By: #### C MP ####[facility] Gbimiwwtxn[address] [place], [place] [address]Dr. Ricardo Aj Creatinine [Mass/Vol] 2.03 mg/dL Critically high 0.55-1.02 [facility] Comment on above: Performed By: #### C MP ####[facility] Awoyujrzfc[address] [place], [place] [address]Dr. Ricardo Rocha EGFR-AF EGYPTIAN 30 mL/min/1.73m2 Critically low >=60 [facility] Comment on above: Performed By: #### C MP ####[facility] Okfdqvrwdc818[address] [place], [place] [address]Dr. Ricardo Aj EGFR-NON AF EGYPTIAN 25 mL/min/1.73m2 Critically low >=60 [facility] Comment on above: Performed By: #### C MP ####[facility] Wocrxzuvfg[address] [place], [place] [address]Dr. Ricardo Rocha Globulin (S) [Mass/Vol] 5.7 g/dL Normal [facility] Comment on above: Performed By: #### C MP ####[facility] Vnhqeuflso032[address] [place], [place] [address]Dr. Ricardo Rocha Glucose [Mass/Vol] 309 mg/dL Critically high 74-106 [facility] Comment on above: Performed By: #### C MP ####[facility] Ostlgxbsbw136[address] [place], [place] [address]Dr. Ricardo Rocha Potassium [Moles/Vol] 3.3 mmol/L Critically low 3.5-5.1 [facility] Comment on above: Performed By: #### C MP ####[facility] Pguffozcey345[address] [place], [place] [address]Dr. Ricardo Rocha Protein [Mass/Vol] 8.1 g/dL Normal 6.4-8.2 [facility] Comment on above: Performed By: #### C MP ####[facility] Btfhbxagph[address] [place], [place] [address]Dr. Ricardo Rocha Sodium [Moles/Vol] 138 mmol/L Normal 136-145 [facility] Comment on above: Performed By: #### C MP ####[facility] Uxmvmlgpya32[address] [place], [place] [address]Dr. Ricardo Rocha Urea nitrogen [Mass/Vol] 37.0 mg/dL Critically high 7.0-18.0 [facility] Comment on above: Performed By: #### C MP ####[facility] Twcfeeyjmo9[address] [place], [place] [address]Dr. Ricardo Rocha Urea nitrogen/Creatinine [Mass ratio] 18.2 mg/mg Normal [facility] Comment on above: Performed By: #### C MP ####[facility] Wonkzogxqz33[address] [place], [place] [address]Dr. Ricardo Rocha SED RATE [facility] 2021 SED RATE >130 Critically high <=[address] [facility] Comment on above: Performed By: #### S EDR ####[facility] Auqlfpdviq8[address] [place], [place] [address]Dr. Ricardo Rocha URINE MICROSCOPIC ONLYon AMORPHOUS CRYSTALS MODERATE Normal [facility] Comment on above: Performed By: #### JOSLYN ELENARO ####[facility] Fvlkjhikuq254[address] [place], [place] [address]Dr. Ricardo Aj BACTERIA MODERATE Abnormal NONE SEEN [facility] Comment on above: Performed By: #### JOSLYN ELENARO ####[facility] Bkllaldisr[address] [place], [place] [address]Dr. Nanomarcial Aj Bacteria identified Cx Nom (U) INDICATED Normal [facility] Comment on above: Performed By: #### LOLY ELENAICRO ####[facility] Pznpipkhql[address] [place], [place] [address]Dr. Ricardo Rocha CAST NONE SEEN Normal NONE SEEN [facility] Comment on above: Performed By: #### Jennifer HINOJOSA, UMICRO ####[facility] Eatdjcwtyb[address] [place] [address]Dr. Ricardo Rocha Crystals LM Nom (Urine sed) SEEN Abnormal NONE SEEN [facility] Comment on above: Performed By: #### E RURaquel, UMICRO ####[facility] Ly[address]fe[address] [place] [address]Dr. Ricardo Rocha Epithelial cells LM Ql (Urine sed) NONE SEEN Normal NONE SEEN /RARE [facility] Comment on above: Performed By: #### E RURaquel, UMICRO ####[facility] Zfwt[address]fm[address] [place] [address]Dr. Ricardo Rocha MUCOUS NONE SEEN Normal NONE SEEN [facility] Comment on above: Performed By: #### Jennifer HINOJOSA, UMICRO ####[facility] Vom[address]hm[address] [place] [address]Dr. Ricardo Rocha RBC 2-5 Abnormal 0-2 [facility] Comment on above: Performed By: #### Jennifer HINOJOSA UMICRO ####[facility] Edldqeqzbd[address] [place] [address]Dr. Ricardo Rocha WBC 5-10 Abnormal NONE SEEN [facility] Comment on above: Performed By: #### Jennifer HINOJOSA, UMICRO ####[facility] Gnrkcx[address]uw[address] [place] [address]Dr. Ricardo Rocha XR CHEST 1 Von 06-11-2022 XR CHEST 1 V Normal [facility] XR FOOT LT MIN 3 VIEWSon XR FOOT LT MIN 3 VIEWS Normal [facility] XR FOOT LT MIN 3 VIEWS Normal [facility] ACETONE SERUMon 06-10-2022 ACETONE Negative Normal NEGATIVE [facility] Comment on above: Performed By: #### A CETON ####[facility] Kxnqcorgww[address] [place] [address]Dr. Ricardo Rocha AMMONIAon 06-10-2022 Ammonia (P) [Mass/Vol] ug/dL Critically low 11-32 [facility] Comment on above: Performed By: #### A MM ####[facility] Jnem[address]un[address] [place] [address]Dr. Ricardo Rocha BLOOD CULTURE ID PANELon A. baumannii Not detected Normal NOT DETECTED [facility] Comment on above: Performed By: #### B CID2 ####[facility] [address]wi[address] [place] [id number]. Ricardo Rocha Bacteriodes fragilis Not detected Normal NOT DETECTED [facility] Comment on above: Performed By: #### B CID2 ####[facility] Nkfjgniwju64[address] [place] [address]Dr. Yimarcial Rocha BCID CONTROLS PASSED Normal [facility] Comment on above: Performed By: #### B CID2 ####[facility] Mzmzfwqoxk[address] [place], [place] [address]Dr. Ricardo Rocha BCIDBTHD BLOOD CULTURE BOTTLE INFORMATION Normal [facility] Comment on above: Performed By: #### B CID2 ####[facility] Lscsjdocsh[address] [place], [place] [address]Dr. Ricardo Rocha BCIDHD1 ANTIMICROBIAL RESIST ANCE GENES Normal [facility] Comment on above: Performed By: #### B CID2 ####[facility] Dekzyxdwqn[address] [place], [place] [address]Dr. Ricardo Rocha BCIDHD2 SEE BELOW Normal [facility] Comment on above: Result Comment: Note : Antimicrobial resitance can occur via multiple mechanisms. A Not Detected result for the [employer] antomicrobial resistance gene assays does not indicate antimicrobial susceptibility. Subculturing is required for species identification and susceptibility testing of isolates. Performed By: #### B CID2 ####[facility] Dkbritidqj14[address] [place], [place] [address]Dr. Ricardo Rocha BCIDHD3 Positive Normal [facility] Comment on above: Performed By: #### B CID2 ####[facility] Lsmxandzqb860[address] [place], [place] [address]Dr. Ricardo Rocha BCIDHD4 Negative Normal [facility] Comment on above: Performed By: #### B CID2 ####[facility] Kajlcgxwxn[address] [place], [place] [address]Dr. Ricardo Rocha BCIDHD5 YEAST Normal [facility] Comment on above: Performed By: #### B CID2 ####[facility] Woljrxhuey147[address] [place], [place] [address]Dr. Ricardo Rocha Bottle Set: Set 1 Normal [facility] Comment on above: Performed By: #### B CID2 ####[facility] Vqidvzvkrr[address] [place], [place] [address]Dr. Ricardo Rocha Bottle: Aerobic Normal [facility] Comment on above: Performed By: #### B CID2 ####[facility] Wjunbhnrla[address]60[address] [place], [place] [address]Dr. Ricardo [facility] C. neoformans/gattii Not detected Normal NOT DETECTED [facility] Comment on above: Performed By: #### B CID2 ####[facility] Aaimmkiaom10[address] [place], [place] [address]Dr. [facility] Lauren albicans Not detected Normal NOT DETECTED [facility] Comment on above: Performed By: #### B CID2 ####[facility] Vdizjklbsk[address] [place], [place] [address]Dr. [facility]Blue [facility] Lauren auris Not detected Normal NOT DETECTED [facility] Comment on above: Performed By: #### B CID2 ####[facility] Sdfavszezm212[address] [place], [place] [address]Dr. Yimarcial [facility] Lauren glabrata Not detected Normal NOT DETECTED [facility] Comment on above: Performed By: #### B CID2 ####[facility] Gkhebxnybq[address] [place], [place] [address]Dr. [facility]Blue [facility] Lauren Krusei Not detected Normal NOT DETECTED [facility] Comment on above: Performed By: #### B CID2 ####[facility] Qktehvndfa978[address] [place], [place] [address]Dr. Yimarcial [facility] Lauren Parapsilosis Not detected Normal NOT DETECTED [facility] Comment on above: Performed By: #### B CID2 ####[facility] Oofzvendvj94[address] [place], [place] [address]Dr. [facility]Blue [facility] Lauren Tropicalis Not detected Normal NOT DETECTED [facility] Comment on above: Performed By: #### B CID2 ####[facility] Ybfbphfcqf487[address] [place], [place] [address]Dr. Nanomarcial Rocha CTX-M Resistant Gene Not Applicable Normal NOT DETECTED [facility] Comment on above: Performed By: #### B CID2 ####[facility] Aidsdypfon2499[address] [place], [place] [address]Dr. Ricardo Rocha E. Cloacae complex Not detected Normal NOT DETECTED [facility] Comment on above: Performed By: #### B CID2 ####[facility] Yecjttpfiq819[address] [place], [place] [address]Dr. Ricardo Rocha E. faecalis Not detected Normal NOT DETECTED [facility] Comment on above: Performed By: #### B CID2 ####[facility] Mthewqfxkb[address] [place], [place] [address]Dr. Ricardo Rocha E. faecium Not detected Normal NOT DETECTED [facility] Comment on above: Performed By: #### B CID2 ####[facility] Krvlwwpxio28[address] [place], [place] [address]Dr. Nanomarcial Rocha Enterobacteriaceae Not detected Normal NOT DETECTED [facility] Comment on above: Performed By: #### B CID2 ####[facility] Lbfiaernqq[address] [place], [place] [address]Dr. Ricardo Rocha Escherichia coli Not detected Normal NOT DETECTED [facility] Comment on above: Performed By: #### B CID2 ####[facility] Finfxevuka20[address] [place], [place] [address]Dr. Ricardo Rocha H. influenzae Not detected Normal NOT DETECTED [facility] Comment on above: Performed By: #### B CID2 ####[facility] Oreqgoctfn6664[address] [place], [place] [address]Dr. Ricardo Rocha IMP Resistant Gene Not Applicable Normal NOT DETECTED [facility] Comment on above: Performed By: #### B CID2 ####[facility] Ojwqnmlagw[address] [place], [place] [address]Dr. Nanomarcial Rocha K. oxytoca Not detected Normal NOT DETECTED [facility] Comment on above: Performed By: #### B CID2 ####[facility] Cymzlofier[address] [place], [place] [address]Dr. Ricardo Aj K. pneumoniae Not detected Normal NOT DETECTED [facility] Comment on above: Performed By: #### B CID2 ####[facility] Seyyixjban[address] [place], [place] [address]Dr. Ricardo Rocha Klebsiella aerogenes Not detected Normal NOT DETECTED [facility] Comment on above: Performed By: #### B CID2 ####[facility] Wmbadymtfk[address] [place], [place] [address]Dr. Ricardo Rocha KPC Resistant Gene Not Applicable Normal NOT DETECTED [facility] Comment on above: Performed By: #### B CID2 ####[facility] Fiidkvpwli759[address] [place], [place] [address]Dr. Ricardo Rocha List. monocytogenes Not detected Normal NOT DETECTED [facility] Comment on above: Performed By: #### B CID2 ####[facility] Wzjnafgxgy[address] [place], [place] [address]Dr. Ricardo Rocha Mcr-1 Resistant Gene Not Applicable Normal NOT DETECTED [facility] Comment on above: Performed By: #### B CID2 ####[facility] Xuxpeufrmz174[address] [place], [place] [address]Dr. Ricardo Rocha mecA/C Not Applicable Normal NOT DETECTED [facility] Comment on above: Performed By: #### B CID2 ####[facility] Nhcjimqucw[address] [place], [place] [address]Dr. Ricardo Rocha mecA/C MREJ Detected Abnormal NOT DETECTED [facility] Comment on above: Performed By: #### B CID2 ####[facility] Bvyhvcjush120[address] [place], [place] [address]Dr. Ricardo Rocha N. meningitidis Not detected Normal NOT DETECTED [facility] Comment on above: Performed By: #### B CID2 ####[facility] Przmjrrqut8865[address] [place], [place] [address]Dr. Ricardo Rocha NDM Resistant Gene Not Applicable Normal NOT DETECTED [facility] Comment on above: Performed By: #### B CID2 ####[facility] Oeoxpecuam[address] [place], [place] [address]Dr. Ricardo Rocha Oxa-48-like Not Applicable Normal NOT DETECTED [facility] Comment on above: Performed By: #### B CID2 ####[facility] Uhbgxyffxm619[address] [place], [place] [address]Dr. Ricardo Rocha Proteus Not detected Normal NOT DETECTED [facility] Comment on above: Performed By: #### B CID2 ####[facility] Rxvkscntnb0350[address] [place], [place] [address]Dr. Nanomarcial Rocha Pseud. aeruginosa Not detected Normal NOT DETECTED [facility] Comment on above: Performed By: #### B CID2 ####[facility] Djgzbozqyw219[address] [place], [place] [address]Dr. Nanomarcial Rocha S. maltophilia Not detected Normal NOT DETECTED [facility] Comment on above: Performed By: #### B CID2 ####[facility] Qujzksmfjb305[address] [place], [place] [address]Dr. Ricardo Rocha Salmonella Not detected Normal NOT DETECTED [facility] Comment on above: Performed By: #### B CID2 ####[facility] Txjfyqeajp[address] [place], [place] [address]Dr. Ricardo Rocha Seratia marcescens Not detected Normal NOT DETECTED [facility] Comment on above: Performed By: #### B CID2 ####[facility] Xqzsxkgywm066[address] [place], [place] [address]Dr. Nanomarcial Rocha Site: LEFT AC IV START Normal [facility] Comment on above: Performed By: #### B CID2 ####[facility] Cdnxhdcmri06[address] [place], [place] [address]Dr. Nanomarcial Rocha Staph. aureus Detected Critically abnormal NOT DETECTED [facility] Comment on above: Performed By: #### B CID2 ####[facility] Paeuxxysyg[address] [place], [place] [address]Dr. Nanomarcial Rocha Staph. epidermidis Not detected Normal NOT DETECTED [facility] Comment on above: Performed By: #### B CID2 ####[facility] Fdpiszsvyk244[address] [place], [place] [address]Dr. Nanomarcial Rocha Staph. lugdunensis Not detected Normal NOT DETECTED [facility] Comment on above: Performed By: #### B CID2 ####[facility] Wdtvuqqvnc130[address] [place], [place] [address]Dr. Ricardo Rocha Staphylococcus Detected Critically abnormal NOT DETECTED [facility] Comment on above: Performed By: #### B CID2 ####[facility] Kcwuhbeuku9944[address] [place], [place] [address]Dr. Ricadro Rocha Strep. agalactiae Not detected Normal NOT DETECTED [facility] Comment on above: Performed By: #### B CID2 ####[facility] Axptodhshr74[address] [place], [place] [address]Dr. Ricardo Rocha Strep. pneumoniae Not detected Normal NOT DETECTED [facility] Comment on above: Performed By: #### B CID2 ####[facility] Kvmrtjjbqj7[address] [place], [place] [address]Dr. Ricardo Rocha Strep. pyogenes Not detected Normal NOT DETECTED [facility] Comment on above: Performed By: #### B CID2 ####[facility] Cghzqtmdgk9[address] [place], [place] [address]Dr. Ricardo Rocha Streptococcus Not detected Normal NOT DETECTED [facility] Comment on above: Performed By: #### B CID2 ####[facility] Cotjwyqkvt434[address] [place], [place] [address]Dr. Ricardo Rocha Layne/B Resist. Gene Not Applicable Normal NOT DETECTED [facility] Comment on above: Performed By: #### B CID2 ####[facility] Xrqtxqzcff424[address] [place], [place] [address]Dr. Ricardo Rocha VIM Resistant Gene Not Applicable Normal NOT DETECTED [facility] Comment on above: Performed By: #### B CID2 ####[facility] Mtsmyqkram[address] [place], [place] [address]Dr. Ricardo Rocha BLOOD GASES BTYon 06-10-2022 02 MODE ROOM AIR Normal [facility] Comment on above: Performed By: #### A BG ####[facility] Pupsxygntk[address] [place], [place] [address]Dr. Ricardo Rocha ALLENS TEST Positive Normal [facility] Comment on above: Performed By: #### A BG ####[facility] [address]wiizcjywb[address] [place] [address]Dr. Ricardo Rocha Base excess Calc (Bld) [Moles/Vol] -4.5000 mmol/L Critically low -2.0-2.0 [facility] Comment on above: Performed By: #### A BG ####[facility] Nqympxtbeb3034 [place] [address]Dr. Ricardo Rocha BIPAP PRESSURE Normal The [facility] Comment on above: Performed By: #### A BG ####[facility] Etcoxkbglx[address] [place], [place] [address]Dr. Ricardo Rocha CPAP Normal The [facility] Comment on above: Performed By: #### A BG ####[facility] Rneklncuym[address] [place], [place] [address]Dr. Ricardo Rocha FIO2 Normal [facility] Comment on above: Performed By: #### A BG ####[facility] Ughhlrdpwq36[address] [place], [place] [address]Dr. Ricardo Rocha HCO3 (Bld) [Moles/Vol] 21.4 mmol/L Critically low 22.0-26.0 [facility] Comment on above: Performed By: #### A BG ####[facility] Drvcchznax[address] [place], [place] [address]Dr. Ricardo Rocha LPM Normal [facility] Comment on above: Performed By: #### A BG ####[facility] Rzdvelpuat[address] [place], [place] [address]Dr. Ricardo Rocha MINUTE VOLUME Normal The [facility] Comment on above: Performed By: #### A BG ####[facility] Vgdivdqrqz[address] [place], [place] [address]Dr. Ricardo Rocha Oxygen (Bld) [Partial pressure] 66.4 mm[Hg] Critically low 80.0-100.0 [facility] Comment on above: Performed By: #### A BG ####[facility] Gsasdrexok[address] [place], [place] [address]Dr. Ricardo Rocha Oxygen saturation in Blood 94.6 % Critically low 95.0-100.0 [facility] Comment on above: Performed By: #### A BG ####[facility] Sncqopvxcd7934 [place] [address]Dr. Ricardo Rocha PCO2 29.4 mmHg Critically low 35.0-45.0 [facility] Comment on above: Performed By: #### A BG ####[facility] Zhsuckaxai6653 [place] [address]Dr. Ricardo Rocha PEEP [facility] Comment on above: Performed By: #### A BG ####[facility] Umxvjlnywl9[address] [place], [place] [address]Dr. Ricardo Rocha pH (Bld) 7.436 [pH] Normal 7.350-7.450 [facility] Comment on above: Performed By: #### A BG ####[facility] Hytnoygozy[address] [place], [place] [address]Dr. Ricardo Rocha PIP [facility] Comment on above: Performed By: #### A BG ####[facility] Vgihssudsz[address] [place], [place] [address]Dr. Ricardo Rocha PS [facility] Comment on above: Performed By: #### A BG ####[facility] Afcojtqnqr6149[address] [place], [place] [address]Dr. Ricardo Rocha PUNCTURE SITE LR [facility] Comment on above: Performed By: #### A BG ####[facility] Gooveyscqu[address] [place], [place] [address]Dr. Ricardo Rocha RATE [facility] Comment on above: Performed By: #### A BG ####[facility] Ivgmccmizn[address] [place], [place] [address]Dr. Ricardo Rocha VENT MODE [facility] Comment on above: Performed By: #### A BG ####[facility] Zokupeibed[address] [place], [place] [address]Dr. Ricardo Rocha VT [facility] Comment on above: Performed By: #### A BG ####[facility] Arewbybvam[address] [place], [place] [address]Dr. Ricardo Rocha CBC W MANUAL DIFFon 10-21-20 22 ATYPICAL LYMPH # Normal [facility] Comment on above: Performed By: #### C DWAINE ####[facility] Wzhktfjztt1748 [place] [id number]. Ricardo Rocha ATYPICAL LYMPH % Normal The [facility] Comment on above: Performed By: #### C DWAINE ####[facility] Ekyyefjell2588 [place] [phone]. Ricardo Rocha BAND # 1.3 103/ul Critically high 0.0-0.[address] [facility] Comment on above: Performed By: #### C DWAINE ####[facility] Lwmihhyrvj3370 [place] [address]Dr. Nanolan Rocha BAND % 12 % Critically high 0-[address] [facility] Comment on above: Performed By: #### C DWAINE ####[facility] Asyeiyugmy0493 [place] [address]Dr. Ricardo Rocha BASOM # 0.00 103/ul Normal 0.00-0.10 [facility] Comment on above: Performed By: #### C DWAINE ####[facility] Pbkepjyikw9844 [place] [address]Dr. Ricardo Rocha BASOM % 0.0 % Critically low 0.2-2.0 The [facility] Comment on above: Performed By: #### C DWAINE ####[facility] Sghlamnrwj4979 [place] [address]Dr. Ricardo Rocha BLAST # Normal [facility] Comment on above: Performed By: #### C DWAINE ####[facility] Uaovasvwig0659 [place] [address]Dr. Ricardo Rocha BLAST % Normal [facility] Comment on above: Performed By: #### C DWAINE ####[facility] Wadhfhnffs8143 [place] [address]Dr. Ricardo Rocha CORRECTED WBC Normal 4.0-11.0 [facility] Comment on above: Performed By: #### C DWAINE ####[facility] Wabiejvkro0288 [place] [phone]. Ricardo Rocha EOS # 0.00 103/ul Normal 0.00-0.70 [facility] Comment on above: Performed By: #### C DWAINE ####[facility] Cfjljtzkdm5840 [place], [place] [address]Rn. Ricardo Rocha EOS% 0.0 % Critically low 0.9-7.0 [facility] Comment on above: Performed By: #### C DWAINE ####[facility] Txgckzrltt2702 [place] [phone]. Ricardo Rocha HCT 35.5 % Critically low 36.0-48.0 [facility] Comment on above: Performed By: #### C DWAINE ####[facility] Qwgxrwzlib1463 [place] [phone]. Ricardo Rocha HGB 11.4 g/dl Critically low 12.0-16.0 [facility] Comment on above: Performed By: #### C DWAINE ####[facility] Qrlzeskcls0873 [place] [phone]. Ricardo Rocha HYPERSEG NEUT 3+ Normal [facility] Comment on above: Performed By: #### C DWAINE ####[facility] Yxjfmhagin4990 [place], [place] [address]Zq. Ricardo Rocha LYMPHM # 0.21 103/ul Critically low 1.20-3.[address] [facility] Comment on above: Performed By: #### C DWAINE ####[facility] Ayirbfsbmn7062 [place] [phone]. Ricardo Rocha LYMPHM% 2.0 % Critically low 20.5-60.0 [facility] Comment on above: Performed By: #### C DWAINE ####[facility] Urczyydzhl2392 [place], [place] [address]Cz. Ricardo Rocha MCH 25.3 pg Critically low 26.7-34.0 [facility] Comment on above: Performed By: #### C DWAINE ####[facility] Nrwtmdiweb9169 [place] [phone]. Ricardo Rocha MCHC 32.1 g/dl Normal 29.9-35.2 [facility] Comment on above: Performed By: #### C DWAINE ####[facility] Etuhbqbxin4000 [place] [phone]. Ricardo Rocha MCV 78.9 fL Critically low 81.0-99.0 [facility] Comment on above: Performed By: #### C DWAINE ####[facility] Sfycfnzmgf8630 [place] [address]Dr. Ricardo Rocha METAMYELOCYTE # Normal The [facility] Comment on above: Performed By: #### C DWAINE ####[facility] Uoqorbqpop0955 [place] [address]Dr. Ricardo Rocha METAMYELOCYTE % Normal The [facility] Comment on above: Performed By: #### C DWAINE ####[facility] Qqsdaakmrg1574 [place] [address]Dr. Ricardo Rocha MONOM# 0.32 103/ul Normal 0.30-0.80 [facility] Comment on above: Performed By: #### C DWAINE ####[facility] Idqdmuabgt3132 [place] [address]Dr. Ricardo Rocha MONOM% 3.0 % Normal 1.7-12.0 [facility] Comment on above: Performed By: #### C DWAINE ####[facility] Rznssjdglh[address] [place], [place] [address]Dr. Ricardo Rocha MPV 10.9 fL Normal 9.5-13.5 [facility] Comment on above: Performed By: #### C DWAINE ####[facility] Tibbrimikq9087 [place] [phone]. Ricardo Rocha MYELOCYTE # Normal [facility] Comment on above: Performed By: #### C DWAINE ####[facility] Dxycjzprrs5794 [place] [phone]. Ricardo Rocha MYELOCYTE % Normal [facility] Comment on above: Performed By: #### C DWAINE ####[facility] Idqvnzjqol8975 [place] [phone]. Ricardo Rocha NRBC Normal [facility] Comment on above: Performed By: #### C DWAINE ####[facility] Igmwpjpvpx7109 [place] [address]Dr. Ricardo Rocha PLT 180 103/ul Normal 150-450 [facility] Comment on above: Performed By: #### C DWAINE ####[facility] Xyqsqqysuq5072 [place] [address]Dr. Ricardo Rocha RBC 4.50 106/ul Normal 4.20-5.40 [facility] Comment on above: Performed By: #### C DWAINE ####[facility] Lssenqekue0456 [place] [address]Dr. Ricardo Rocha RDW 12.8 % Normal 11.0-15.0 [facility] Comment on above: Performed By: #### C DWAINE ####[facility] Fzyccorhjq[address] [place], [place] [address]Dr. Ricardo Rocha SEG # 8.71 103/ul Critically high 1.40-6.50 [facility] Comment on above: Performed By: #### Esteban ISIDRO ####[facility] Tyxoxsecgf80[address] [place], [place] [address]Dr. Ricardo Rocha SEG % 83.0 % Critically high 43.0-75.[address] [facility] Comment on above: Performed By: #### C DWAINE ####[facility] Sduetdlubx[address] [place], [place] [address]Dr. Ricardo Rocha TOXIC GRANULATION 2+ Normal [facility] Comment on above: Performed By: #### C DWAINE ####[facility] Qbvclweehj3984 [place] [address]Dr. Ricardo Rocha WBC 10.5 103/ul Normal 4.0-11.0 [facility] Comment on above: Performed By: #### C DWAINE ####[facility] Ctoqeuvrms4416 [place] [address]Dr. Ricardo Rocha CULTURE BLOODon 06-10-2022 Microscopic examination of blood, culture Culture Observations: Positive blood culture. Pediatric bottle. Culture Observations: Please refer to for susceptibility testing. Isolate 1 Staphylococcus aureus Growth of Normal [facility] Comment on above: Performed By: #### B LDCX2 ####[facility] Ixszvopkop[address] [place], [place] [id number]. Ricardo Rocha LACTATE/LACTIC ACIDon 2021 Lactate [Moles/Vol] 1.9 mmol/L Normal 0.4-1.9 [facility] Comment on above: Performed By: #### L ACT ####[facility] Rbejovivpf5259 [place] [address]Dr. Ricardo Rocha LIPASEon 06-10-2022 Lipase [Catalytic activity/Vol] 164.0 U/L Normal 73.0-393.0 [facility] Comment on above: Performed By: #### H STROPN, LIPA, CMP, TSH ####[facility] Gvzplwaxzq1657 [place] [address]Dr. Ricardo Rocha POINT OF CARE GLUCOSEon 05-22 Glucose [Mass/Vol] 583 mg/dL Critically high 74-106 [facility] Comment on above: Result Comment: Resu lt Not Confirmed Performed By: #### P OCGLUC ####[facility] Fflgihuzsd[address] [place], [place] [address]Dr. Ricardo Rocha PROF 14(COMP METB)on 022 Albumin [Mass/Vol] 3.0 g/dL Critically low 3.4-5.0 [facility] Comment on above: Performed By: #### H STROPN, LIPA, CMP, TSH ####[facility] Lojnumqrqr5712 [place] [address]Dr. Ricardo Rocha Albumin/Globulin [Mass ratio] 0.5 {ratio} Normal [facility] Comment on above: Performed By: #### H STROPN, LIPA, CMP, TSH ####[facility] Qidzbewnti5531 [place] [address]Dr. Ricardo Rocha ALP [Catalytic activity/Vol] 116 U/L Normal 46-116 [facility] Comment on above: Performed By: #### H STROPN, LIPA, CMP, TSH ####[facility] Tuhthwkomo3612 [place] [address]Dr. Ricardo Rocha ALT [Catalytic activity/Vol] 15 U/L Normal 14-59 [facility] Comment on above: Performed By: #### H STROPN, LIPA, CMP, TSH ####[facility] Vduzyzrsbg5501 [place] [address]Dr. Ricardo Rocha Anion gap [Moles/Vol] 15.7 mmol/L Normal Th e [facility] Comment on above: Performed By: #### H STROPN, LIPA, CMP, TSH ####[facility] Hqbvxzeywx9477 [place] [address]Dr. Ricardo Rocha AST [Catalytic activity/Vol] 16 U/L Normal 15-37 [facility] Comment on above: Performed By: #### H STROPN, LIPA, CMP, TSH ####[facility] Lzixtuimbv2357 [place] [address]Dr. Ricardo Rocha Bilirubin [Mass/Vol] 0.5 mg/dL Normal 0.2-1.0 [facility] Comment on above: Performed By: #### H STROPN, LIPA, CMP, TSH ####[facility] Xmzfairrby[address] [place], [place] [address]Dr. Ricardo Rocha Calcium [Mass/Vol] 9.4 mg/dL Normal 8.5-10.1 [facility] Comment on above: Performed By: #### H STROPN, LIPA, CMP, TSH ####[facility] Ukubpjwmjn5639 [place] [address]Dr. Ricardo Rocha Chloride [Moles/Vol] 95 mmol/L Critically low 98-107 [facility] Comment on above: Performed By: #### H STROPN, LIPA, CMP, TSH ####[facility] Neaoyqkwhd8145 [place] [address]Dr. Ricardo Rocha CO2 [Moles/Vol] 22.1 mmol/L Normal 21.0-32.0 [facility] Comment on above: Performed By: #### H STROPN, LIPA, CMP, TSH ####[facility] Uxppmlewbh0656 [place] [address]Dr. Ricardo Rocha Creatinine [Mass/Vol] 2.23 mg/dL Critically high 0.55-1.02 [facility] Comment on above: Performed By: #### H STROPN, LIPA, CMP, TSH ####[facility] Ofanrshqvv8883 [place] [address]Dr. Ricardo Rocha EGFR-AF EGYPTIAN 27 mL/min/1.73m2 Critically low >=60 [facility] Comment on above: Performed By: #### H STROPN, LIPA, CMP, TSH ####[facility] Vqrdkvnndw4231 [place] [address]Dr. Ricardo Rocha EGFR-NON AF EGYPTIAN 22 mL/min/1.73m2 Critically low >=60 [facility] Comment on above: Performed By: #### H STROPN, LIPA, CMP, TSH ####[facility] Jgyvjpbkcb9015 [place] [address]Dr. Ricardo Rocha Globulin (S) [Mass/Vol] 6.5 g/dL Normal [facility] Comment on above: Performed By: #### H STROPN, LIPA, CMP, TSH ####[facility] Woveilbxlx2885 [place] [address]Dr. Ricardo Rocha Glucose [Mass/Vol] 593 mg/dL Critically high 74-106 [facility] Comment on above: Performed By: #### H STROPN, LIPA, CMP, TSH ####[facility] Vgbybiyzyw2387 [place] [address]Dr. Ricardo Rocha Potassium [Moles/Vol] 3.8 mmol/L Normal 3.5-5.1 [facility] Comment on above: Performed By: #### H STROPN, LIPA, CMP, TSH ####[facility] Diwncxgstr3750 [place] [address]Dr. Ricardo Rocha Protein [Mass/Vol] 9.5 g/dL Critically high 6.4-8.2 [facility] Comment on above: Performed By: #### H STROPN, LIPA, CMP, TSH ####[facility] Sqhqqsvysy9792 [place] [address]Dr. Ricardo Rocha Sodium [Moles/Vol] 129 mmol/L Critically low 136-145 [facility] Comment on above: Performed By: #### H STROPN, LIPA, CMP, TSH ####[facility] Jjppocjuhg6393 [place] [address]Dr. Ricardo Rocha Urea nitrogen [Mass/Vol] 40.0 mg/dL Critically high 7.0-18.0 The [facility] Comment on above: Performed By: #### H STROPN, LIPA, CMP, TSH ####[facility] Nllookpnkc8425 [place] [address]Dr. Ricardo Rocha Urea nitrogen/Creatinine [Mass ratio] 17.9 mg/mg Normal [facility] Comment on above: Performed By: #### H STROPN, LIPA, CMP, TSH ####[facility] Dhayxhfedn[address] [place], [place] [address]Dr. Ricardo Rocha PROTIMEon 06-10-2022 INR Coag (PPP) [Relative time] 1.00 {INR} Normal [facility] Comment on above: Performed By: #### P TT, PT ####[facility] Gcvvgwxevj[address] [place], [place] [address]Dr. Ricardo Rocha INR GUIDELINES SEE BELOW Normal [facility] Comment on above: Result Comment: AMBROSIO RED INR: 2.0 - 3.0 CONDITIONS NOT LISTED BELOW 2.5 - 3.5 FOR PROSTHETIC HEART VALVE REPLACEMENT 2.5 - 3.5 RECURRENT THROMBOSIS Performed By: #### P TT, PT ####[facility] Wiiywhuxhx017[address] [place], [place] [address]Dr. Ricardo Rocha PT Coag (PPP) [Time] 10.8 s Normal 9.0-11.6 [facility] Comment on above: Performed By: #### P TT, PT ####[facility] Oiaueltcgx[address] [place], [place] [address]Dr. Ricardo Rocha PTTon 06-10-2022 aPTT Coag (Bld) [Time] 31.7 s Normal 22.3-36.2 [facility] Comment on above: Performed By: #### P TT, PT ####[facility] Fodbrefvgt264[address] [place], [place] [address]Dr. Ricardo Rocha TROPONIN, HIGH SENSITIVITYon 06-10-2022 HSTROP 30.9 pg/mL Normal 4.0-51.3 [facility] Comment on above: Result Comment: CUT- OFF POINTS HAVE BEEN ESTABLISHED BASED ON THE FOURTH UNIVERSAL DEFINITIONS OF MYOCARDIALINFARCTION. THE UPPER REFERENCE LIMIT (URL) OF TROPONIN, DEFINED THE 99TH PERCENTILE OFcTnI DISTRIBUTION IN A REFERENCE POPULATION, HAS BEEN CONFIRMED THE DECISION THRESHOLDFOR [place] DIAGNOSIS. Performed By: #### H STROPN, LIPA, CMP, TSH ####[facility] Dhrsvbcjjw1325 [place] [address]Dr. Ricardo Rocha TSHon 06-10-2022 TSH 0.147 uIU/mL Critically low 0.358-3.740 [facility] Comment on above: Performed By: #### H STROPN, LIPA, CMP, TSH ####[facility] Xmqvdmhjnq[address] [place], [place] [address]Dr. Ricardo Rocha XR FOOT GURJIT MIN 3 VIEWSon XR FOOT GURJIT MIN 3 VIEWS Normal [facility] XR HAND RT MIN 3Von 06-02-20 XR HAND RT MIN 3V Normal [facility] CULTURE WOUNDon 05-15-2022 CULTURE WOUND Normal [facility] Comment on above: Performed By: #### W OUNDCX ####[facility] Beyrulrxtr[address] [place], [place] [address]Dr. Ricardo Rocha CBC AUTO DIFFon 2022 BASO # 0.0 103/ul Normal 0.0-0.1 [facility] Comment on above: Performed By: #### C BC ####[facility] Hvpedkmmfw40[address] [place], [place] [address]Dr. Ricardo Rocha Basophils/100 WBC (Bld) 0.7 % Normal 0.2-2.0 [facility] Comment on above: Performed By: #### C BC ####[facility] Pklwufjorn[address] [place], [place] [address]DrIrina Rocha EO # 0.1 103/ul Normal 0.0-0.7 [facility] Comment on above: Performed By: #### C BC ####[facility] Mnfvrgezkg528[address] [place], [place] [address]Dr. Ricardo Rocha Eosinophils/100 WBC (Bld) 2.1 % Normal 0.9-7.0 [facility] Comment on above: Performed By: #### C BC ####[facility] Lyyfswfmlt197[address] [place], [place] [address]Dr. Ricardo Aj Erythrocyte distribution width (RBC) [Ratio] 13.2 % Normal 11.0-15.0 [facility] Comment on above: Performed By: #### C BC ####[facility] Pwojfjzdxt[address] [place], [place] [address]Dr. Ricardo Rocha Hematocrit (Bld) [Volume fraction] 36.6 % Normal 36.0-48.0 [facility] Comment on above: Performed By: #### C BC ####[facility] Aqwwtmawfj412[address] [place], [place] [address]Dr. Ricardo Rocha Hemoglobin (Bld) [Mass/Vol] 11.9 g/dL Critically low 12.0-16.0 [facility] Comment on above: Performed By: #### C BC ####[facility] Riwaoytxzd22[address] [place], [place] [address]Dr. Ricardo Rocha IG # 0.03 10e3/ul Normal 0.00-0.03 [facility] Comment on above: Performed By: #### C BC ####[facility] Lwbkcqmaey33[address] [place], [place] [address]Dr. Ricardo Rocha IG % 0.5 % Normal 0.0-0.5 [facility] Comment on above: Performed By: #### C BC ####[facility] Qpammvhmdj538[address] [place], [place] [address]Dr. Ricardo Rocha LYMPH # 2.1 103/ul Normal 1.2-3.8 [facility] Comment on above: Performed By: #### C BC ####[facility] Atnwfbcskm66[address] [place], [place] [address]Dr. Ricardo Rocha Lymphocytes/100 WBC (Bld) 33.8 % Normal 20.5-60.0 [facility] Comment on above: Performed By: #### C BC ####[facility] Fxvofclyaw[address] [place], [place] [address]DrIrina oRcha MANUAL DIFF REQ NO Normal [facility] Comment on above: Performed By: #### C BC ####[facility] Whtauileyy0849 [place] [address]Dr. Ricardo Rocha MCH (RBC) [Entitic mass] 25.7 pg Critically low 26.7-34.0 [facility] Comment on above: Performed By: #### C BC ####[facility] Anrivgevjb735[address] [place], [place] [address]Dr. Ricardo Rocha MCHC (RBC) [Mass/Vol] 32.5 g/dL Normal 29.9-35.2 [facility] Comment on above: Performed By: #### C BC ####[facility] Yeefgxfofb208[address] [place], [place] [address]DrIrina Rocha MCV (RBC) [Entitic vol] 79.0 fL Critically low 81.0-99.0 [facility] Comment on above: Performed By: #### C BC ####[facility] Mkzurlwoub[address] [place], [place] [address]DrIrina Rocha MONO # 0.4 103/ul Normal 0.3-0.8 [facility] Comment on above: Performed By: #### C BC ####[facility] Knadqcxpnr501[address] [place], [place] [address]DrIrina Rocha Monocytes/100 WBC (Bld) 6.2 % Normal 1.7-12.0 [facility] Comment on above: Performed By: #### C BC ####[facility] Sdmdqphezi[address] [place], [place] [address]DrIrina Rocha NEUT # 3.5 103/ul Normal 1.4-6.5 [facility] Comment on above: Performed By: #### C BC ####[facility] Jwgpmmbxnf[address] [place], [place] [address]DrIrina Rocha Neutrophils/100 WBC (Bld) 56.7 % Normal 43.0-75.0 [facility] Comment on above: Performed By: #### C BC ####[facility] Jntwfmnngj[address] [place], [place] [address]DrIrina Rocha Platelet mean volume (Bld) [Entitic vol] 10.9 fL Normal 9.5-13.5 [facility] Comment on above: Performed By: #### C BC ####[facility] Lweywzvwpq3061 [place] [place] [address]Dr. Ricardo Rocha PLT 241 103/ul Normal 150-450 [facility] Comment on above: Performed By: #### C BC ####[facility] [address] [place] [address]Dr. Ricardo Rocha RBC 4.63 106/ul Normal 4.20-5.40 [facility] Comment on above: Performed By: #### C BC ####[facility] [address] [place], [place] [address]DrIrina Rocha WBC 6.1 103/ul Normal 4.0-11.0 [facility] Comment on above: Performed By: #### C BC ####[facility] [address] [place], [place] [address]DrIrina Rocha PROF CHEM 8 (BAS METB)on Anion gap [Moles/Vol] 11.8 mmol/L Normal [facility] Comment on above: Performed By: #### B MP ####[facility] [address] [place], [place] [address]DrIrina Rocha Calcium [Mass/Vol] 9.2 mg/dL Normal 8.5-10.1 [facility] Comment on above: Performed By: #### B MP ####[facility] [address] [place], [place] [address]DrIrina Rocha Chloride [Moles/Vol] 99 mmol/L Normal 98-107 [facility] Comment on above: Performed By: #### B MP ####[facility] [address] [place], [place] [address]DrIrina Rocha CO2 [Moles/Vol] 24.7 mmol/L Normal 21.0-32.0 [facility] Comment on above: Performed By: #### B MP ####[facility] Goyqaefq[address] [place], [place] [address]Dr. Ricardo Rocha Creatinine [Mass/Vol] 1.48 mg/dL Critically high 0.55-1.02 [facility] Comment on above: Performed By: #### B MP ####[facility] Tyoxrcrap[address] [place], [place] [address]Dr. Ricardo Rocha EGFR-AF EGYPTIAN 43 mL/min/1.73m2 Critically low >=60 [facility] Comment on above: Performed By: #### B MP ####[facility] Tpectnvz[address] [place], [place] [address]Dr. Ricardo Rocha EGFR-NON AF EGYPTIAN 36 mL/min/1.73m2 Critically low >=60 [facility] Comment on above: Performed By: #### B MP ####[facility] [address] [place], [place] [address]Dr. Ricardo Rocha Glucose [Mass/Vol] 431 mg/dL Critically high 74-106 [facility] Comment on above: Performed By: #### B MP ####[facility] Z[address] [place], [place] [address]Dr. Ricardo Rocha Potassium [Moles/Vol] 4.5 mmol/L Normal 3.5-5.1 [facility] Comment on above: Performed By: #### B MP ####[facility] [address] [place], [place] [address]Dr. Ricardo Rocha Sodium [Moles/Vol] 131 mmol/L Critically low 136-145 [facility] Comment on above: Performed By: #### B MP ####[facility] [address]fr[address] [place], [place] [address]Dr. Ricardo Rocha Urea nitrogen [Mass/Vol] 23.0 mg/dL Critically high 7.0-18.0 [facility] Comment on above: Performed By: #### B MP ####[facility] [address] [place], [place] [address]Dr. Ricardo Rocha Urea nitrogen/Creatinine [Mass ratio] 15.5 mg/mg Normal [facility] Comment on above: Performed By: #### B MP ####[facility] V[address] [place], [place] [address]Dr. Ricardo Rocha XR TOES GURJIT MIN 2 Von 2021 XR TOES GURJIT MIN 2 V Normal [facility] HEALTH 01-21-2021 ALLIED HEALTH HNO ID: [id number] Author: RT Parveen(R) Service: ? Author Type: Internal Corrosion Specialist Type: Allied Health Filed: 01/20/2021 10:30 PM [...] Parveen(R) January 20, 2021 10:29 PM Normal [facility] Basic Metabolic Panlon 01-21 Anion gap [Moles/Vol] 7 mmol/L Low 9-18 [facility] Calcium [Mass/Vol] 8.8 mg/dL Normal 8.5-10.2 [facility] Chloride [Moles/Vol] 99 mmol/L Normal 97-105 [facility] CO2 [Moles/Vol] 25 mmol/L Normal 22-30 [facility] Creatinine [Mass/Vol] 1.51 mg/dL High 0.58-0.96 [facility] eGFR- Amer. 42 Normal [facility] eGFR-All Other Races 35 . Normal [facility] Comment on above: Result Comment: [...] ospital Comment on above: Result Comment: The [place] Diabetes [employer] (ADA) provides guidance for cutoff [...] Standards of Medical Care in Diabetes 2016, [place] [employer]. Diabetes Care. 2016.39(Suppl 1). Potassium [Moles/Vol] 4.7 mmol/L Normal 3.7-5.1 [facility] Sodium [Moles/Vol] 131 mmol/L Low 136-144 [facility] Urea nitrogen [Mass/Vol] 42 mg/dL High 7-21 [facility] CBCon 01-21-2021 Absolute nRBC <0.01 Normal <0.01 [facility] Erythrocyte distribution width (RBC) [Ratio] 13.1 % Normal 11.5-15.0 [facility] Hematocrit (Bld) [Volume fraction] 30.0 % Low 36.0-46.0 [facility] Hemoglobin (Bld) [Mass/Vol] 9.5 g/dL Low 11.5-15.5 [facility] MCH 24.4 pG Low 26.0-34.0 [facility] MCHC (RBC) [Mass/Vol] 31.7 g/dL Normal 30.5-36.0 [facility] MCV (RBC) [Entitic vol] 77.1 fL Low 80.0-100.0 [facility] Platelet mean volume (Bld) [Entitic vol] 11.1 fL Normal 9.0-12.7 [facility] l Platelets (Bld) [#/Vol] 358 10*3/uL Normal 150-400 [facility] RBC (Bld) [#/Vol] 3.89 10*6/uL Low 3.90-5.20 [facility] WBC (Bld) [#/Vol] 9.64 10*3/uL Normal 3.70-11.00 [facility] CNDSon 01-21-2021 CNDS HNO ID: [id number] Author: Inna Hansen DO Service: Hospital Medicine [...] Team: Attending Provider: Inna Hansen DO Physician Salt Refiner: Garrett Simon PA-C Consulting: Taurus Ballard MD [...] and mild bilateral hydronephrosis without ureteral calculi. Valerio was helped to help with decompression, she was treated with IV fluids and IV antibiotics. Urine culture returned positive for Proteus. Blood cultures were negative. She was seen by Urology and Nephrology. ANATOLIY was thought to be obstructive in nature and continues to improve as the Valerio remains in place. She had an MRI kidneys performed which revealed a left renal cyst (patient reports this to be known). Recommendation is for follow up MRI in 6 months. She will follow up outpatient with Urology for a cystoscopy and Valerio removal as scheduled on 01/29. She continues [...] all four extremities without gross deficits. : Valerio in place; light yellow urine in collection [...] 150 mg by mouth three times daily. HYDROcodone-Acetaminophen (NORCO) 1 tablet Take 1 tablet by [...] PCP: referred to a new PCP in [place]. Future Appointments Date Time Provider Department Center 01/29/2021 11:40 AM Taurus Ballard MD [facility] The patient's risk for 30-day readmission is determined using the following contributing factors: Pt variables contributing to increased readmission risk: 42 Most Recent (more content not included)... Normal [facility] MRI KIDNEY WO/W IVCONon 06-0 MRI KIDNEY WO/W IVCON * * *Final Report* * * DATE OF EXAM: Jan 20 2021 10:35PM [facility] 0721 - MRI KIDNEY WO/W IVCON / PROCEDURE REASON: Renal cyst * * * * Physician Interpretation * * * * EXAMINATION: MRI ABDOMEN WITHOUT AND WITH IV CONTRAST CLINICAL HISTORY: Renal mass characterization. TECHNIQUE: A renal MRI was performed on a MR system utilizing the torso phased-array coil. Pulse sequences included: axial precontrast T1 weighted in- and [id number], axial and coronal HASTE, axial DWI with [...] hydronephrosis. ACTIONABLE RESULT: FOLLOW-UP Acuity: Actionable Findings: Kidneys/Ureters/Bladder/A drenal Routing Code: GU_1 Recommendation: MRI KIDNEY WO/W IVCON Time Frame: Additional evaluation as described in the impression COMMUNICATION: Results will be communicated with the ordering provider via [employer] staff message or phone message by [employer] within 2 business days of report finalization. Algorithms for management of incidental imaging findings can be found on the [facility] Intranet Sharepoint site at: [email or web address] [email or web address] Remote Sensing Analyst: GUILLE Transcribe Date/Time: Jan 21 2021 8:17A Dictated by : MALLORY AHN MD This examination was interpreted and the report reviewed and electronically signed by: MALLORY AHN MD on Jan 21 2021 8:49AM EST [id number] ACTIONABLE Invalid Interpretation Code [facility] Basic Metabolic Panlon 01-20 Anion gap [Moles/Vol] 11 mmol/L Normal 9-18 [facility] Calcium [Mass/Vol] 8.7 mg/dL Normal 8.5-10.2 [facility] Chloride [Moles/Vol] 97 mmol/L Normal 97-105 [facility] CO2 [Moles/Vol] 24 mmol/L Normal 22-30 [facility] Creatinine [Mass/Vol] 1.46 mg/dL High 0.58-0.96 [facility] eGFR- Amer. 44 Normal [facility] eGFR-All Other Races 36 . Normal [facility] Comment on above: Result Comment: [...] GFR. Glucose [Mass/Vol] 149 mg/dL High 74-99 [facility] Comment on above: Result Comment: The [place] Diabetes Association (ADA) provides guidance for cutoff [...] Standards of Medical Care in Diabetes 2016, [place] Diabetes [employer]. Diabetes Care. 2016.39(Suppl 1). Potassium [Moles/Vol] 3.9 mmol/L Normal 3.7-5.1 [facility] Sodium [Moles/Vol] 132 mmol/L Low 136-144 [facility] Urea nitrogen [Mass/Vol] 53 mg/dL High 7-21 [facility] CBCon 01-20-2021 Absolute nRBC <0.01 Normal <0.01 [facility] Erythrocyte distribution width (RBC) [Ratio] 12.8 % Normal 11.5-15.0 [facility] Hematocrit (Bld) [Volume fraction] 27.7 % Low 36.0-46.0 [facility] Hemoglobin (Bld) [Mass/Vol] 8.9 g/dL Low 11.5-15.5 [facility] MCH 24.5 pG Low 26.0-34.0 [facility] MCHC (RBC) [Mass/Vol] 32.1 g/dL Normal 30.5-36.0 [facility] MCV (RBC) [Entitic vol] 76.3 fL Low 80.0-100.0 [facility] Platelet mean volume (Bld) [Entitic vol] 11.1 fL Normal 9.0-12.7 [facility] Platelets (Bld) [#/Vol] 321 10*3/uL Normal 150-400 [facility] RBC (Bld) [#/Vol] 3.63 10*6/uL Low 3.90-5.20 [facility] WBC (Bld) [#/Vol] 11.05 10*3/uL High 3.70-11.00 [facility] CONSULT PROGon 01-20-2021 CONSULT PROG HNO ID: [id number] Author: Rajendra Cruz MD Service: Nephrology Author Type: Physician Type: Consult Progress Note Filed: 01/20/2021 1:44 PM Note Text: [facility] NEPHROLOGY CONSULT PROGRESS NOTE SERVICE [...] digits. No lower extremity edema bilaterally. : Valerio draining light yellow urine Skin: No rashes, [...] 08/09. Appears obstructive in nature. Improving s/p valerio placement. Urinary retention - S/p valerio placement. Plan for continued valerio catheter at time of DC with outpatient [...] with MR kidney to evaluate mass. -Continue valerio catheter with outpatient management per urology Nephrology will sign off at this point. Please call with further questions or concerns. SIGNATURE: Rajendra Chavarria MD PATIENT NAME: Aislinn Wheeler DATE: January 20, 2021 1:43 PM PHONE: [phone] FOR AFTER HOUR CONCERNS BETWEEN 7PM - 7AM CONTACT ON-CALL NEPHROLOGY STAFF Normal [facility] THERAPY NTon 01-20-2021 THERAPY NT HNO ID: [id number] Author: Afia Radford, PT Service: Physical Therapy Author Type: Physical Therapist Type: Therapy (PT/OT/Speech/Resp) Filed: 01/20/2021 3:32 PM Note Text: Physical Therapy Treatment SERVICE DATE: 01/20/2021 SERVICE TIME: 1330 to 1353 ROOM: [place] [address] Recommended Discharge Disposition: Home PT Recommended Discharge [...] 0 Tub/Shower Type: tub shower Laundry: basement, [id number] Equipment Owned: Cane;Standard Walker Prior Functional Level: Required Assistance Assistance Required With: Transfers;Cleaning;Laundr y;Meals;Transportation;Sh opping;Self Care Prior Functional Level Comments: Pt reports [...] Blank shankar indicate activity not attempted General Deviations/Observations: Loss of Balance;Lateral sway increased JH-HLM: 7: Walk 25 feet or more Learning/Educational Needs: Discharge Plan;Functional Activities/Mobility;Pain Management;Safety Goals for Plan of Care: Patient [...] Diagnosis: Reduced mobility-other Interventions Provided: Gait Training (92666);Therapeutic Exercise (68598) Therapeutic Exercise (01854) Treatment Minutes: 8 Pt performed in supine position: AP, QS, GS x 10 B LE, pt instructed to do every hour while awake on their own. 7 days a week, HS, hip ABD, SAQ, SLR 10-20 reps/ 2-3x/day/ 7 days/week Gait Training (41252) Treatment Minutes: 15 $ Gait Training (69900) Billed Units: 1 unit Training AND education [...] 2021 TIME: (more content not included)... Normal [facility] THERAPY NT HNO ID: [id number] Author: Heidy Wright, OT/L Service: Occupational Therapy Author Type: Occupational Therapist Type: Therapy (PT/OT/Speech/Resp) Filed: 01/20/2021 12:15 PM Note Text: Occupational Therapy Treatment SERVICE DATE: 01/20/2021 SERVICE TIME: 1155 to 1205 ROOM: [place] [address] Recommended Discharge Disposition: Home OT Recommended Discharge [...] at Home Physical Assist at Home for: Cleaning;Laundry;Meals;Sh opping;Transportation Recommended Discharge Equipment: Extended tub bench;Wheeled Walker;Commode-Bedside [...] Commands Treatment Interventions: Education;Self Care / Home Management;Strengthening; Functional Mobility Training Plan for next visit: (d/c OT) Home Environment Patient Lives With: Other: See Comment (lives with 10 year old grandsabrina, ex-hus, ) Assistance Available: 24 Hour;Other: See Comment (grandson is done with school at home) Entry To Home: Stairs;Without Rail Number Of Stairs Into Home: 1 Number Of Stairs To Bed/Bath: 0 Tub/Shower Type: tub shower Laundry: basement, [id number] Equipment Owned: Cane;Standard Walker Prior Functional Level: Required Assistance Assistance Required With: Transfers;Cleaning;Laundr y;Meals;Transportation;Sh opping;Self Care Prior Functional Level Comments: Pt reports [...] activity not attempted Learning/Educational Needs: Discharge Plan;Family Education/Training;Equipm ent;Functional Activities/Mobility;Plan of Care;Safety;Self Care Goals for Plan of [...] with: Patient TREATMENT INTERVENTIONS: Therapy Diagnosis: Reduced mobility-other;Decreased activities of daily living (ADL);Muscle Weakness (generalized);General symptoms and signs-other Interventions Provided: Self Shelter Management (39919) Self Shelter Management (70603) Treatment Minutes: 10 $ Self Shelter Management (05533) Billed Units: 1 unit Training AND education provided in: Benefits of in (more content not included)... Normal [facility] THERAPY NT HNO ID: [id number] Author: Heidy Wright OT/Broderick Service: Occupational Therapy Author Type: Occupational Therapist Type: Therapy (PT/OT/Speech/Resp) Filed: 01/20/2021 8:24 AM Note Text: OCCUPATIONAL THERAPY MISSED VISIT SERVICE DATE: 01/20/2021 SERVICE TIME: 819 to 08 ROOM: [place] [address] Attempted Treatment. Patient not seen due to Declined. Pt states, It's too early when OT attempted to work with her. Will re-attempt as schedule permits. SIGNATURE: KRUNAL Navarro PATIENT NAME: Aislinn Wheeler DATE: January 20, 2021 TIME: 8:24 AM [facility] Basic Metabolic Panlon 01-19 Anion gap [Moles/Vol] 11 mmol/L Normal 9-18 [facility] Calcium [Mass/Vol] 8.5 mg/dL Normal 8.5-10.2 [facility] Chloride [Moles/Vol] 93 mmol/L Low 97-105 [facility] CO2 [Moles/Vol] 24 mmol/L Normal 22-30 [facility] Creatinine [Mass/Vol] 1.92 mg/dL High 0.58-0.96 [facility] eGFR- Amer. 32 Normal [facility] eGFR-All Other Races 26 . Normal [facility] Comment on above: Result Comment: [...] ospital Comment on above: Result Comment: The [place] Diabetes [employer] (ADA) provides guidance for cutoff [...] Standards of Medical Care in Diabetes 2016, [place] [employer]. Diabetes Care. 2016.39(Suppl 1). Potassium [Moles/Vol] 4.2 mmol/L Normal 3.7-5.1 [facility] Sodium [Moles/Vol] 128 mmol/L Low 136-144 [facility] Urea nitrogen [Mass/Vol] 77 mg/dL High 7-21 [facility] Anion gap [Moles/Vol] 11 mmol/L Normal 9-18 [facility] Calcium [Mass/Vol] 8.3 mg/dL Low 8.5-10.2 [facility] Chloride [Moles/Vol] 88 mmol/L Low 97-105 [facility] CO2 [Moles/Vol] 23 mmol/L Normal 22-30 [facility] Creatinine [Mass/Vol] 1.93 mg/dL High 0.58-0.96 [facility] eGFR- Amer. 32 Normal [facility] eGFR-All Other Races 26 . Normal [facility] Comment on above: Result Comment: [...] Glucose [Mass/Vol] 292 mg/dL High 74-99 [facility] Comment on above: Result Comment: The [place] Diabetes [employer] (ADA) provides guidance for cutoff [...] Standards of Medical Care in Diabetes 2016, [place] [employer]. Diabetes Care. 2016.39(Suppl 1). Potassium [Moles/Vol] 3.8 mmol/L Normal 3.7-5.1 [facility] Sodium [Moles/Vol] 122 mmol/L Low 136-144 [facility] Urea nitrogen [Mass/Vol] 82 mg/dL High 7-21 [facility] CBCon 01-19-2021 Absolute nRBC <0.01 Normal <0.01 [facility] Erythrocyte distribution width (RBC) [Ratio] 12.8 % Normal 11.5-15.0 [facility] Hematocrit (Bld) [Volume fraction] 27.5 % Low 36.0-46.0 [facility] Hemoglobin (Bld) [Mass/Vol] 9.1 g/dL Low 11.5-15.5 [facility] MCH 24.9 pG Low 26.0-34.0 [facility] MCHC (RBC) [Mass/Vol] 33.1 g/dL Normal 30.5-36.0 [facility] MCV (RBC) [Entitic vol] 75.1 fL Low 80.0-100.0 [facility] Platelet mean volume (Bld) [Entitic vol] 11.2 fL Normal 9.0-12.7 [facility] l Platelets (Bld) [#/Vol] 297 10*3/uL Normal 150-400 [facility] RBC (Bld) [#/Vol] 3.66 10*6/uL Low 3.90-5.20 [facility] WBC (Bld) [#/Vol] 12.14 10*3/uL High 3.70-11.00 [facility] CONSULT PROGon 01-19-2021 CONSULT PROG HNO ID: [id number] Author: Rajendra Cruz MD Service: Nephrology Author Type: Physician Type: Consult Progress Note Filed: 01/19/2021 2:40 PM Note Text: [facility] NEPHROLOGY CONSULT PROGRESS NOTE SERVICE [...] digits. No lower extremity edema bilaterally. : Valerio draining light yellow urine Skin: No rashes, [...] 08/09. Appears obstructive in nature. Improving s/p valerio placement. Urinary retention - S/p valerio placement. ? Hyponatremia - Secondary to free [...] with MR kidney to evaluate mass. -Continue valerio catheter with outpatient management per urology -Hold further IV fluids at this point -Drink to thirst, no need to push fluids Will follow SIGNATURE: Rajendra Chavarria MD PATIENT NAME: Aislinn Wheeler DATE: January 19, 2021 2:27 PM PHONE: [phone] FOR AFTER HOUR CONCERNS BETWEEN 7PM - 7AM CONTACT ON-CALL NEPHROLOGY STAFF [facility] 01-19-2021 NUTRITION HNO ID: [id number] Author: Michelle Louis RD Service: Nutrition Therapy [...] history;Intake records;Patient/family self-report;Weight loss;Nausea;Vomiting Estimated kilocalorie needs: 1965-0057 Calorie Calculation Method: 30-35 kcals/kg Estimated protein [...] deficiency identified Edema/Ascites: No edema GI Symptoms: Nausea;Vomiting;Abdominal pain;Diarrhea Functional Status: Unable to assess Potential Signs of Inflammation: Hyperglycemia;Hypoalbumin emia;Microbiologic cultures;Leukocytosis;Sep sis;Chronic condition;High CRP;Imaging studies MNT Billing Type: Initial Assess/15 min 4 units SIGNATURE: Mike Holder RD PATIENT NAME: Aislinn Wheeler DATE: January 19, 2021 TIME: 10:59 AM PAGER: [phone] I have reviewed the nutritional assessment note documented by the fall intern and I personally participated in the miller components. I have discussed the case and nutritional management of the patient's care. Michelle Louis MS,RD,LD,[facility] THERAPY [facility] 01-19-2021 THERAPY HNO ID: [id number] Author: Afia Radford, PT Service: Physical Therapy Author Type: Physical Therapist Type: Therapy (PT/OT/Speech/Resp) Filed: 01/19/2021 2:57 PM Note Text: Physical Therapy Evaluation SERVICE DATE: 01/19/2021 SERVICE TIME: 1307 to 1331 ROOM: [place] [address] Recommended Discharge Disposition: Home PT Anticipated Discharge Needs: Physical Assist at Home Physical Assist at Home for: Cleaning;Laundry;Meals;Sh opping;Transportation Recommended Discharge Equipment: Wheeled Walker PT 6 [...] List: Decreased Strength;Functional Mobility Impairment Treatment Interventions: Education;Strengthening;F unctional Mobility Training Home Environment Patient Lives With: Other: See Comment (lives with 10 year old grandson, ex-hus, ) Assistance Available: 24 Hour;Other: See Comment (grandson is done with school at home) Entry To Home: Stairs;Without Rail Number Of Stairs Into Home: 1 Number Of Stairs To Bed/Bath: 0 Tub/Shower Type: tub shower Laundry: basement, [id number] Equipment Owned: Cane;Standard Walker Prior Functional Level: Required Assistance Assistance Required With: Transfers;Cleaning;Laundr y;Meals;Transportation;Sh opping;Self Care Prior Functional Level Comments: Pt reports [...] Blank shankar indicate activity not attempted General Deviations/Observations: Aysha decreased Range of Motion: WFL Strength: WFL (B LE atleast 3/5) JH-HLM: 7: Walk 25 feet or more Learning/Educational Needs: Discharge Plan;Functional Activities/Mobility;Plan of Care;Rehabilitation Techniques and Procedures Goals for [...] Diagnosis: Reduced mobility-other Interventions Provided: Evaluation;Therapeutic Exercise (59597);Gait Training (02279) $ Evaluation-Low (83464) Billed Units: 1 unit Therapeutic Exercise (25532) Treatment Minutes: 1 Patient performed in seated position: Marching, AP/HR, hip ABD, LAQ x10 B LE- instructions written on white board for pt to complete on her own. Gait Training (06196) Treatment Minutes: 8 $ Gait Training (34101) Billed Units: 1 unit Training AND education [...] present during visit: Aleksander Syed, SPT Normal [facility] Basic Metabolic Panlon 01-18 Anion gap [Moles/Vol] 13 mmol/L Normal 9-18 [facility] Calcium [Mass/Vol] 8.8 mg/dL Normal 8.5-10.2 [facility] Chloride [Moles/Vol] 88 mmol/L Low 97-105 [facility] CO2 [Moles/Vol] 22 mmol/L Normal 22-30 [facility] Creatinine [Mass/Vol] 2.21 mg/dL High 0.58-0.96 [facility] eGFR- Amer. 27 Normal [facility] eGFR-All Other Races 23 . Normal [facility] Comment on above: Result Comment: [...] ospital Comment on above: Result Comment: The [place] Diabetes [employer] (ADA) provides guidance for cutoff [...] Standards of Medical Care in Diabetes 2016, [place] [employer]. Diabetes Care. 2016.39(Suppl 1). Potassium [Moles/Vol] 3.7 mmol/L Normal 3.7-5.1 [facility] Sodium [Moles/Vol] 123 mmol/L Low 136-144 [facility] Urea nitrogen [Mass/Vol] 93 mg/dL High 7-21 [facility] Anion gap [Moles/Vol] 16 mmol/L Normal 9-18 [facility] Calcium [Mass/Vol] 9.0 mg/dL Normal 8.5-10.2 [facility] Chloride [Moles/Vol] 93 mmol/L Low 97-105 [facility] CO2 [Moles/Vol] 21 mmol/L Low 22-30 [facility] Creatinine [Mass/Vol] 2.59 mg/dL High 0.58-0.96 [facility] eGFR- Amer. 23 Normal [facility] eGFR-All Other Races 19 . Normal [facility] Comment on above: Result Comment: [...] GFR. Glucose [Mass/Vol] 130 mg/dL High 74-99 [facility] Comment on above: Result Comment: [place] [place] Diabetes [employer] (ADA) provides guidance for cutoff [...] Standards of Medical Care in Diabetes 2016, [place] [employer]. Diabetes Care. 2016.39(Suppl 1). Potassium [Moles/Vol] 4.7 mmol/L Normal 3.7-5.1 [facility] Sodium [Moles/Vol] 130 mmol/L Low 136-144 [facility] Urea nitrogen [Mass/Vol] 97 mg/dL High 7-21 [facility] CASE MGT INIT [facility] 2020 CASE MGT INIT [facility] ID: [id number] Author: Nicol Landin RN Service: ? 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 A Patient/Sign Designer Stated Goals: To have reduction in pain;To [...] scheduled Advance Directive: Current Advance Directive: None Bandsaw Operator Attempted to Assist with AD Completion: Yes [...] Walker Has the Patient Been in a Longterm Facility in the Past 30 days?: No [...] and plan for meeting these needs: Patient's jqvpbfwf-ke-aei and son live close by and come over to help often Patient's perception of need for this admission: necessary Medication Adherance I am convinced of the importance of my prescription medication: 0 - Agree Completely I worry that my prescription medication will do more harm than good to me : 0 - Disagree Completely I feel financially burdened by my vee-ma-ztawxe expenses for my prescription medication:: 0 - Disagree Completely Risk Score: 0 Patient is categorized as: Low risk < 2 Are you interested in bedside delivery of your medications? Yes Is Patient Psychosocially Complex?: Yes, refer to Social Work ASSESSMENT AND PLAN: Medical Needs: Medical Needs: Two or more chronic diseases Psychosocial Needs: Psychosocial Needs: None FREEDOM OF CHOICE EXPLAINED: Anderson of Choice Given: No Reason Not Given: [...] and hospitalized about 1 month ago in [place] but no resolution of her symptoms. She [...] 18, 2021 TIME: 10:51 AM PAGER/CONTACT #: [phone] Normal [facility] CBCon 01-18-2021 Absolute nRBC <0.01 Normal <0.01 [facility] al Erythrocyte distribution width (RBC) [Ratio] 13.0 % Normal 11.5-15.0 [facility] Hematocrit (Bld) [Volume fraction] 31.2 % Low 36.0-46.0 [facility] Hemoglobin (Bld) [Mass/Vol] 9.9 g/dL Low 11.5-15.5 [facility] MCH 24.4 pG Low 26.0-34.0 [facility] MCHC (RBC) [Mass/Vol] 31.7 g/dL Normal 30.5-36.0 [facility] MCV (RBC) [Entitic vol] 77.0 fL Low 80.0-100.0 [facility] Platelet mean volume (Bld) [Entitic vol] 10.8 fL Normal 9.0-12.7 [facility] l Platelets (Bld) [#/Vol] 310 10*3/uL Normal 150-400 [facility] RBC (Bld) [#/Vol] 4.05 10*6/uL Normal 3.90-5.20 [facility] WBC (Bld) [#/Vol] 17.03 10*3/uL High 3.70-11.00 [facility] CONSULTon 01-18-2021 CONSULT HNO ID: [id number] Author: Annie Trinidad DO Service: Hypertension AND [...] Noted a no-show appointment to urology at [facility]. She also reports that she [...] lobe noncalcified pulmonary nodule. She had a valerio catheter placed and urology has seen this morning. Plan to maintain indwelling valerio and trend creatinine levels. She will also [...] capsule Take 150 mg by mouth. - HYDROcodone-Acetaminophen (NORCO) 7.5-325 mg per tablet [...] for n (more content not included)... Normal [facility] CONSULT HNO ID: [id number] Author: Taurus Ballard MD Service: Urology Author Type: Physician Type: Consults Filed: 01/18/2021 8:27 AM Note Text: [facility] UROLOGY CONSULT [...] last 12 hours. PLAN - Maintain indwelling Valerio and trend creatinine over the next 1 [...] kidney obtained can discharge patient with indwelling Valerio catheter. -We will arrange outpatient urologic follow-up [...] 150 mg by mouth., Disp: , Rfl: HYDROcodone-Acetaminophen (NORCO) 7.5-325 mg per tablet, Take 1 [...] the pa (more content not included)... Normal [facility] Creatinine,Urine,Ranon 01-18 Creatinine,Urine,Ran 33.5 mg/dL Normal 20-300 [facility] Comment on above: Performed By: #### U SAUNDRA, UOSM, UCRR ####[facility] [address] [place], [place] [phone] Magnesiumon 01-18-2021 Magnesium [Mass/Vol] 1.9 mg/dL Normal 1.7-2.3 [facility] NURSING PROGon 01-18-2021 NURSING PROG HNO ID: [id number] Author: Barbara Spicer, REY Service: ? Author Type: Registered Nurse Type: Nursing Progress Note Filed: 01/18/2021 10:28 AM Note Text: Nursing Progress Note Patient Name: Aislinn Wheeler Patient Location: / Daily Note:pt report given to pete LE. Pt VSS. Pt belongings packed. This note was completed by: Barbara Spicer Normal [facility] Osmolalityon 01-18-2021 Osmolality [Osmolality] 298 mosm/kg Normal 275-300 [facility] Comment on above: Performed By: #### O SM ####[facility] [place], [place] [phone] Osmolality, Urineon 01-19-20 21 Osmolality, Urine 273 mOsm/kg Normal 50-1200 [facility] Comment on above: Performed By: #### U SAUNDRA, UOSM, UCRR ####[facility] [place], [place] [phone] Sepsis Lactateon 01-18-2021 Sepsis Lactate 0.9 mmol/L Normal <2.1 [facility] Sodium,Urine,Randomon 2020 Sodium (U) [Moles/Vol] 32 mmol/L Normal 14-216 [facility] Comment on above: Performed By: #### U SAUNDRA, UOSM, UCRR ####[facility] [place], [place] [phone] THERAPY NTon 01-18-2021 THERAPY NT HNO ID: [id number] Author: Wendy Montes De Oca OT/L Service: Occupational Therapy Author Type: Occupational Therapist Type: Therapy (PT/OT/Speech/Resp) Filed: 01/18/2021 1:10 PM Note Text: Occupational Therapy Evaluation SERVICE DATE: 01/18/2021 SERVICE TIME: 08 to 914 ROOM: [place] [address] Recommended Discharge Disposition: Home OT Recommended Discharge [...] at Home Physical Assist at Home for: Transfers;Cleaning;Laundr y;Meals;Safety;Self Care;Shopping;Transportat ion Recommended Discharge Equipment: Extended tub bench;Wheeled Walker;Commode-Bedside [...] asthma Treatment Interventions: Education;Self Care / Home Management;Strengthening; Functional Mobility Training Home Environment Patient Lives With: Other: See Comment (lives with 10 year old grandson, ex-hus, ) Assistance Available: 24 Hour;Other: See Comment (grandson is done with school at home) Entry To Home: No Stairs Number Of Stairs To Bed/Bath: 0 Tub/Shower Type: tub shower Laundry: basement, [id number]-[id number] Equipment Owned: Cane;Standard Walker CURRENT FUNCTIONAL STATUS: [...] activity not attempted Learning/Educational Needs: Discharge Plan;Family Education/Training;Equipm ent;Functional Activities/Mobility;Plan of Care;Safety;Self Care Goals for Plan of [...] with: Patient TREATMENT INTERVENTIONS: Therapy Diagnosis: Reduced mobility-other;Decreased activities of daily living (ADL);Muscle Weakness (generalized);General symptoms and signs-other Interventions Provided: Evaluation $ Evaluation-Moderate (95405) Billed Units: 1 unit Training and education [...] DATE: January 18, 2021 TIME: 1:06 PM [facility] Urine Cultureon 01-18-2021 Bacteria identified Cx Nom (U) Sp. Request/Comment: - Specimen received in preservative Culture Result - No growth (<1,000 CFU/ml) [facility] Comment on above: Performed By: #### U RCUL ####[place] [address] [place], [place] [phone] Blood Cultureon 01-17-2021 Bacteria identified Cx Nom (Bld) Culture Result - No growth 5 days Normal [facility] Comment on above: Performed By: #### B LCUL ####[place] [address] [place], [place] [phone] C-Reactive Proteinon 021 C-Reactive Protein 32.4 mg/dL High <0.9 [facility] Comment on above: Performed By: #### W SR ####[address] [phone] CBC and Differentialon 01-17 Abs Baso <0.03 Normal <0.11 [facility] Abs Eosin <0.03 Normal <0.46 [facility] Abs Dewey 0.73 k/uL Normal <0.87 [facility] Abs Neut 14.70 k/uL High 1.45-7.50 [facility] Absolute nRBC <0.01 Normal [facility]0.01 [facility]/100 WBC (Bld) 0.1 % Normal [facility] DTYPE Auto Diff Normal [facility] Eosinophils/100 WBC (Bld) 0.0 % Normal [facility] Erythrocyte distribution width (RBC) [Ratio] 13.1 % Normal 11.5-15.0 [facility] Hematocrit (Bld) [Volume fraction] 35.1 % Low 36.0-46.0 [facility] Hemoglobin (Bld) [Mass/Vol] 11.3 g/dL Low 11.5-15.5 [facility] Lymphocytes (Bld) [#/Vol] 1.88 10*3/uL Normal 1.00-4.00 [facility] Lymphocytes/100 WBC (Bld) 10.8 % Normal [facility] MCH 24.2 pG Low 26.0-34.0 [facility] MCHC (RBC) [Mass/Vol] 32.2 g/dL Normal 30.5-36.0 [facility] MCV (RBC) [Entitic vol] 75.2 fL Low 80.0-100.0 [facility] Monocytes/100 WBC (Bld) 4.2 % Normal [facility] Neutrophils/100 WBC (Bld) 84.9 % Normal [facility] NRBCs 0.0 /100 WBC Normal 0 [facility] l Platelet mean volume (Bld) [Entitic vol] 11.4 fL Normal 9.0-12.7 [facility] l Platelets (Bld) [#/Vol] 345 10*3/uL Normal 150-400 [facility] RBC (Bld) [#/Vol] 4.67 10*6/uL Normal 3.90-5.20 [facility] WBC (Bld) [#/Vol] 17.33 10*3/uL High 3.70-11.[address] [facility] [address] ABD/PEL WO IVCONon 2020 [...] PELVIS WITHOUT CONTRAST CLINICAL HISTORY: Aspiration (accession [id number]), Mass or lump, abdomen pelvis (accession [id number]) Concern for possible source of infection vs [...] report for details. Pelvic bones are intact. Recreational Programs Director (topogram) images: Unremarkable. IMPRESSION: Left upper lobe [...] be communicated with the ordering provider via [employer] staff message or phone message by Imaging Support Services within 2 business days of report finalization. ACTIONABLE RESULT: FOLLOW-UP Acuity: Actionable Findings: Kidneys/Ureters/Bladder/A drenal Routing Code: GU_1 Recommendation: MRI KIDNEY WO/W IVCON Time Frame: non-urgent, but prompt follow-up. COMMUNICATION: Results will be communicated with the ordering provider via [employer] staff message or phone message by Imaging Support Services within 2 business days of report finalization. Algorithms for management of incidental imaging findings can be found on the [facility] Intranet Sharepoint site at: [email or web address] [email or web address] ging%20Incidental%20Findi ngs%20at%20Imaging/Forms/ AllItems.[email or web address] Remote Sensing Analyst: GUILLE Transcribe Date/Time: Jan 17 2021 8:20P Dictated by : GALO JIM MD This examination was interpreted and the report reviewed and electronically signed by: GALO JIM MD on Jan 17 2021 8:43PM EST [id number] ACTIONABLE Invalid Interpretation Code [facility] CT BRAIN WO IVCONon 01-18-20 [...] base and imaged soft tissues are unremarkable. Recreational Programs Director (topogram) images: No additional findings. IMPRESSION: No acute intracranial hemorrhage or mass effect is seen Remote Sensing Analyst: GUILLE Transcribe Date/Time: Jan 17 2021 4:47P Dictated by : JOHN THAKKAR MD This examination was interpreted and the report reviewed and electronically signed by: JOHN THAKKAR MD on Jan 17 2021 4:48PM EST [id number] Normal [facility] CT CERVICAL SPINE WO IVCONon [...] Counting reference: Craniocervical junction. Anatomic Variants: None. Recreational Programs Director (topogram) images: No additional findings. Alignment: Straightening [...] vertebrae with counting from the craniocervical junction. Remote Sensing Analyst: GUILLE Transcribe Date/Time: Jan 17 2021 4:49P Dictated by : JOHN THAKKAR MD This examination was interpreted and the report reviewed and electronically signed by: JOHN THAKKAR MD on Jan 17 2021 4:53PM EST [id number] [facility] CT CHEST WO IVCONon 01-18-[address] CHEST WO IVCON * * *Final Report* * * DATE OF EXAM: Jan 17 2021 8:05PM [facility] 0541 - CT CHEST WO IVCON / PROCEDURE REASON: Aspiration * * * * Physician Interpretation * * * * CT OF CHEST, ABDOMEN AND PELVIS WITHOUT CONTRAST CLINICAL HISTORY: Aspiration (accession [id number]), Mass or lump, abdomen pelvis (accession [id number]) Concern for possible source of infection vs [...] report for details. Pelvic bones are intact. Recreational Programs Director (topogram) images: Unremarkable. IMPRESSION: Left upper lobe [...] be communicated with the ordering provider via [employer] staff message or phone message by Imaging Support Services within 2 business days of report finalization. ACTIONABLE RESULT: FOLLOW-UP Acuity: Actionable Findings: Kidneys/Ureters/Bladder/A drenal Routing Code: GU_1 Recommendation: MRI KIDNEY WO/W IVCON Time Frame: non-urgent, but prompt follow-up. COMMUNICATION: Results will be communicated with the ordering provider via [employer] staff message or phone message by Imaging Support Services within 2 business days of report finalization. Algorithms for management of incidental imaging findings can be found on the [facility] Intranet Sharepoint site at: [email or web address] [email or web address] ging%20Incidental%20Findi ngs%20at%20Imaging/Forms/ AllItems.aspx Remote Sensing Analyst: GUILLE Transcribe Date/Time: Jan 17 2021 8:20P Dictated by : GALO JIM MD This examination was interpreted and the report reviewed and electronically signed by: GALO JIM MD on Jan 17 2021 8:43PM EST [id number] ACTIONABLE Invalid Interpretation Code [facility] CT LUMBAR SPINE WO IVCONon [...] are 5 lumbar-type vertebrae. Anatomic variant: None. Recreational Programs Director (topogram) images: No additional findings. Alignment: Alignment [...] on 01/17/2021 6:08 PM via verbal communication. Remote Sensing Analyst: GUILLE Transcribe Date/Time: Jan 17 2021 6:05P Dictated by : JOHN THAKKAR MD This examination was interpreted and the report reviewed and electronically signed by: JOHN THAKKAR MD on Jan 17 2021 6:01PM EST This document has been addended by: JOHN THAKKAR MD on Jan 17 2021 6:08PM EST [id number] Normal [facility] CT THORACIC SPINE WO IVCONon 01-17-2021 [...] the purposes of this report, anatomic variants: Recreational Programs Director (topogram) images: No additional findings. Alignment: Alignment [...] and assume there are 5 lumbar-type vertebrae. Remote Sensing Analyst: GUILLE Transcribe Date/Time: Jan 17 2021 6:03P Dictated by : JOHN THAKKAR MD This examination was interpreted and the report reviewed and electronically signed by: JOHN THAKKAR MD on Jan 17 2021 6:13PM EST [id number] Normal [facility] Comp Metabolic Panelon 01-17 Albumin [Mass/Vol] 3.0 g/dL Low 3.9-4.9 [facility] ALP [Catalytic activity/Vol] 162 U/L High 34-123 [facility] ALT [Catalytic activity/Vol] 7 U/L Normal 7-38 [facility] Anion gap [Moles/Vol] 17 mmol/L Normal 9-18 [facility] AST [Catalytic activity/Vol] 15 U/L Normal 13-35 [facility] Bilirubin [Mass/Vol] 0.4 mg/dL Normal 0.2-1.3 [facility] Calcium [Mass/Vol] 9.6 mg/dL Normal 8.5-10.2 [facility] Chloride [Moles/Vol] 83 mmol/L Low 97-105 [facility] CO2 [Moles/Vol] 20 mmol/L Low 22-30 [facility] Creatinine [Mass/Vol] 2.93 mg/dL High 0.58-0.96 [facility] eGFR- Amer. 20 Normal [facility] eGFR-All Other Races 16 . Normal [facility] Comment on above: Result Comment: [...] GFR. Glucose [Mass/Vol] 216 mg/dL High 74-99 [facility] Comment on above: Result Comment: The [place] Diabetes [employer] (ADA) provides guidance for cutoff [...] Standards of Medical Care in Diabetes 2016, [place] [employer]. Diabetes Care. 2016.39(Suppl 1). Potassium [Moles/Vol] 5.5 mmol/L High 3.7-5.1 [facility] Protein [Mass/Vol] 9.5 g/dL High 6.3-8.0 [facility] Sodium [Moles/Vol] 120 mmol/L Low 136-144 [facility] Comment on above: Result Comment: Resu lt checked and verified Urea nitrogen [Mass/Vol] 104 mg/dL High 7-21 [facility] ED NOTEon 01-17-2021 ED NOTE HNO ID: [id number] Author: Prerna Luke RN Service: ? Author Type: Registered Nurse Type: ED Notes Filed: 01/17/2021 9:32 PM Note Text: Report called to 4E RN. Patient stable for transport at this time. [facility] ED NOTE HNO ID: [id number] Author: Prerna Luke RN Service: ? Author Type: Registered Nurse Type: ED Notes Filed: 01/17/2021 9:20 PM Note Text: 16Fr valerio inserted with 500 cc urine immediately drained. Patient tolerated well. [facility] ED NOTE HNO ID: [id number] Author: Prerna Luke RN Service: ? Author Type: Registered Nurse Type: ED Notes Filed: 01/17/2021 7:22 PM Note Text: BC obtained by lab. ABX infusing at this time. [facility] ED NOTE HNO ID: [id number] Author: Prerna Luke RN Service: ? Author Type: Registered Nurse Type: ED Notes Filed: 01/17/2021 7:06 PM Note Text: This RN and 2 medics unable to straight stick patient for blood or draw from existing IVs. Lab will draw one set of BC; GIANNI Tucker notified that only one set will be obtained. [facility] ED NOTE HNO ID: [id number] Author: Prerna Luke RN Service: ? Author Type: Registered Nurse Type: ED Notes Filed: 01/17/2021 4:25 PM Note Text: XR at bedside [facility] ED NOTE HNO ID: [id number] Author: Prerna Luke RN Service: ? Author Type: Registered Nurse Type: ED Notes Filed: 01/17/2021 4:03 PM Note Text: covid swab obtained and walked to lab. [facility] ED NOTE HNO ID: [id number] Author: Bharat Patterson RN Service: ? Author [...] Reports oral intake has been poor Normal [facility] ED PROV NOTEon 01-17-2021 ED PROV NOTE HNO ID: [id number] Author: Garrett Simon PA-C Service: Emergency Medicine Author Type: Physician Salt Refiner Type: ED Provider Notes Filed: 01/17/2021 9:27 PM Note Text: ----- Attestation signed by Cory Crawley III, MD [...] Crawley III Date: 01/18/2021 Time: 12:05 PM ----- ED Provider Note Patient Name: Aislinn Wheeler [...] significant midlin (more content not included)... Normal [facility] HISTORY PHYSICALon HISTORY PHYSICAL HNO ID: [id number] Author: Trevor Porras MD Service: Hospital Medicine Author Type: Physician Type: HANDP Filed: 01/17/2021 10:12 PM Note Text: DEPARTMENT OF HOSPITAL MEDICINE HISTORY AND PHYSICAL EXAM SERVICE DATE: 01/17/2021 Code Status: Not on file SERVICE TIME: 10:00 PM Primary Care Physician: No Pcp NIGHT AND WEEKEND COVERAGE: [place] COVERAGE: Days: [phone], please contact via [employer] Nights: [phone], please page CC Hospitalist Night coverage pager [phone] Subjective CHIEF COMPLAINT: Generalized weakness, falls HPI: [...] ED spoke with urologist who suggesting inserting valerio catheter and admitting. Pt was given IV [...] 150 mg by mouth., Disp: , Rfl: HYDROcodone-Acetaminophen (NORCO) 7.5-325 mg per tablet, Take 1 [...] Most recen (more content not included)... Normal [facility] Intermed Rapid COVIDon 01-17 SARS-CoV-2 (COVID-19) RNA ADRIEL+probe Ql (Unsp spec) UPPER RESPIRATORY TRACT SWAB Normal [facility] Comment on above: Performed By: #### I TCOVD ####[facility] [place], [place] [phone] SARS-CoV-2 (COVID-19) RNA ADRIEL+probe Ql (Unsp spec) Negative for COVID19 (SARS CoV2) by RT-PCR or equivalent method. Normal Negative for COVID19 (SARS CoV2) by RT-PCR or equivalent method. [facility] Comment on above: Result Comment: This test was developed and its performance characteristics determined by [facility]'s [facility] [place]. This test has been authorized by FDA under an Emergency Use Authorization (EUA). This test has been validated in accordance with the FDA's Guidance Document Policy for Diagnostics Testing in Laboratories Certified to Perform High Complexity Testing under CLIA prior to Emergency use Authorization for Coronavirus Disease 2019 during the Public Health Emergency issued on October 19, 2019. Test performed by [facility], [facility] [place], [address] [place], [place] [address]. Performed By: #### I TCOVD ####[facility] [place], [place] [phone] Magnesiumon 01-17-2021 Magnesium [Mass/Vol] 2.0 mg/dL Normal 1.7-2.3 [facility] NT Pro BNPon 01-17-2021 PRO B Natr Peptide 394 pg/mL High <125 [facility] Sed Rate Westergrenon 2020 Sed Rate Westergren 124 mm/hr High 0-20 [facility] Comment on above: Performed By: #### W SR ####[facility] [place], [place] [phone] TSHon 01-17-2021 TSH Qn 0.615 m[IU]/L Normal 0.270-4.200 [facility] Troponin Ton 01-17-2021 Troponin T.cardiac [Mass/Vol] 0.023 ug/L Normal 0.000-0.029 [facility] Urinalysis with Microscopico n 01-17-2021 Bacteria Present Critically abnormal 0 [facility] Bilirubin, Urine Negative Normal Negative [facility] pital Cast SEE COMMENT Normal 0 [facility] Comment on above: Result Comment: 0 Clarity (U) Turbid Critically abnormal Clear [facility] Color (U) Yellow Normal Yellow [facility] Glucose Ql (U) Negative Normal Negative [facility] Hemoglobin/Blood,Ur 2+ Critically abnormal Negative [facility] Ketones Ql (U) Negative Normal Negative [facility] Leukest 3+ Critically abnormal Negative [facility] Nitrite Ql (U) Positive Critically abnormal Negative [facility] pH (U) 8.5 [pH] High 5.0-8.0 [facility] Protein, Urine 2+ Critically abnormal Negative [facility] RBC 3-5 Critically abnormal 0-3 [facility] Specific [place], Ur 1.013 Normal 1.005-1.030 [facility] Urobilinogen Qn (U) 0.2 {Madeleine'U}/dL Normal 0.2-1.0 [facility] WBC (U) [#/Vol] /uL Critically abnormal 0-5 [facility] Urine Cultureon 01-17-2021 Bacteria identified [...] F Ertapenem SUSCEPTIBLE <=0.5 F Critically abnormal [facility] Comment on above: Performed By: #### U [facility] ####[place] [phone] XR CHEST 1V FRONTAL PORTon 0 01-17-2021 [...] exam with no evidence of acute disease. Remote Sensing Analyst: PSCKimberlyn Transcribe Date/Time: Jan 17 2021 4:40P Dictated by : FLASH WOODS MD This examination was interpreted and the report reviewed and electronically signed by: FLASH WOODS MD on Jan 17 2021 4:41PM EST [id number] Normal [facility] Vital Signs Date Time Vital Sign Value Performing Clinician Facility 01-27-2025 15:090400 Body mass index (BMI) [Ratio] 25.15 kg/m2 Agusto Olmstead CORN CUTTER OPERATOR Work Phone: [facility] 01-27-2025 15:09040 Body temperature 97.81 [degF] Agusto Olmstead CORN CUTTER OPERATOR Work Phone: [facility] 01-27-2025 15:090400 Body weight 58.42 kg Agusto Olmstead CORN CUTTER OPERATOR Work Phone: [facility] 01-27-2025 15:09040 Diastolic blood pressure 80 mm[Hg] Agusto Olmstead CORN CUTTER OPERATOR Work Phone: [facility] 01-27-2025 15:09-0400 Heart rate 69 /min Agusto Olmstead CORN CUTTER OPERATOR Work Phone: [facility] 01-27-2025 15:09-0400 Respiratory rate 18 /min Agusto Olmstead CORN CUTTER OPERATOR Work Phone: [facility] [facility] 01-27-2025 15:09-0400 SaO2% (BldA) [Mass fraction] 96 % Agusto Olmstead CORN CUTTER OPERATOR Work Phone: [facility] 01-27-2025 15:09-0400 Systolic blood pressure 146 mm[Hg] Agusto Olmstead CORN CUTTER OPERATOR Work Phone: [facility] 01-08-2025 12:01-0400 Body height 152.4 cm Sweta Verhoff PA-C Work Phone: [facility] 01-08-2025 12:01-0400 Body mass index (BMI) [Ratio] 25.58 kg/m2 Sweta Verhoff PA-C Work Phone: [facility] 01-08-2025 12:01-0400 Body weight 59.42 kg Sweta Verhoff PA-C Work Phone: [facility] 01-08-2025 12:01-0400 Diastolic blood pressure 71 mm[Hg] Sweta Verhoff PA-C Work Phone: [facility] 01-08-2025 12:01-0400 Heart rate 70 /min Sweta Verhoff PA-C Work Phone: [facility] 01-08-2025 12:01-0400 Respiratory rate 18 /min Sweta Verhoff PA-C Work Phone: [facility] 01-08-2025 12:01-0400 SaO2% (BldA) [Mass fraction] 100 % Sweta Verhoff PA-C Work Phone: [facility] 01-08-2025 12:01-0400 Systolic blood pressure 137 mm[Hg] Sweta Verhoff PA-C Work Phone: [facility] 12-05-2024 13:31-0400 Body height 152.4 cm Cory Angeles DPM Work Phone: [facility] 12-05-2024 13:31-0400 Body mass index (BMI) [Ratio] 25.39 kg/m2 Cory Angeles DPM Work Phone: [facility] 12-05-2024 13:31-0400 Body weight 58.97 kg Cory Angeles DPM Work Phone: [facility] 12-05-2024 13:31-0400 Respiratory rate 18 /min Cory Angeles DPM Work Phone: [facility] 12-04-2024 10:57-0400 Body height 152.4 cm Agusto Cainz CORN CUTTER OPERATOR Work Phone: [facility] 12-04-2024 10:57-0400 Body mass index (BMI) [Ratio] 26.17 kg/m2 Agusto Aichholz CORN CUTTER OPERATOR Work Phone: [facility] 12-04-2024 10:57-0400 Body temperature 97.5 [degF] Agusto Aichholz CORN CUTTER OPERATOR Work Phone: [facility] 12-04-2024 10:57-0400 Body weight 60.78 kg Agusto Aichholz CORN CUTTER OPERATOR Work Phone: [facility] 12-04-2024 10:57-0400 Diastolic blood pressure 72 mm[Hg] Agusto Aichholz CORN CUTTER OPERATOR Work Phone: [facility] 12-04-2024 10:57-0400 Heart rate 61 /min Agusto Aichholz CORN CUTTER OPERATOR Work Phone: [facility] 12-04-2024 10:57-0400 Respiratory rate 20 /min Agusto Aichholz CORN CUTTER OPERATOR Work Phone: [facility] 12-04-2024 10:57-0400 SaO2% (BldA) [Mass fraction] 97 % Agusto Aichholz CORN CUTTER OPERATOR Work Phone: [facility] 12-04-2024 10:57-0400 Systolic blood pressure 134 mm[Hg] Agusto Aichholz CORN CUTTER OPERATOR Work Phone: [facility] 11-26-2024 12:12-0400 Diastolic blood pressure 79 mm[Hg] Agusto Aichholz Work Phone: [facility] 11-26-2024 12:12-0400 Heart rate 69 /min Agusto Aichholz Work Phone: [facility] 11-26-2024 12:12-0400 Respiratory rate 18 /min Agusto Aichholz Work Phone: [facility] 11-26-2024 12:12-0400 SaO2% (BldA) [Mass fraction] 96 % Agusto Aichholz Work Phone: [facility] 11-26-2024 12:12-0400 Systolic blood pressure 191 mm[Hg] Agusto Aichholz Work Phone: [facility] 11-26-2024 08:10-0400 Body temperature 98 [degF] Agusto Aichholz Work Phone: [facility] 11-26-2024 05:28-0400 Body weight 60.4 kg Agusto Aichholz Work Phone: [facility] 11-25-2024 14:27-0400 Body height 152.4 cm Agusto Aichholz Work Phone: [facility] 11-23-2024 20:05-0400 Diastolic blood pressure 57 mm[Hg] Agusto Aichholz Work Phone: [facility] 11-23-2024 20:05-0400 Heart rate 66 /min Agusto Aichholz Work Phone: [facility] 11-23-2024 20:05-0400 Respiratory rate 25 /min Agusto Aichholz Work Phone: [facility] 11-23-2024 20:05-0400 SaO2% (BldA) [Mass fraction] 97 % Agusto Aichholz Work Phone: [facility] 11-23-2024 20:05-0400 Systolic blood pressure 122 mm[Hg] Agusto Aichholz Work Phone: [facility] 11-23-2024 15:12-0400 Body height 152.4 cm Agusto Aichholz Work Phone: [facility] 11-23-2024 15:12-0400 Body temperature 98.1 [degF] Agusto Aichholz Work Phone: [facility] 11-23-2024 15:12-0400 Body weight 60.15 kg Agusto Aichholz Work Phone: [facility] 11-18-2024 10:17-0400 Body mass index (BMI) [Ratio] 25.58 kg/m2 Agusto Aichholz CORN CUTTER OPERATOR Work Phone: [facility] 11-18-2024 10:17-0400 Body temperature 97.81 [degF] Agusto Aichholz CORN CUTTER OPERATOR Work Phone: [facility] 11-18-2024 10:17-0400 Body weight 59.42 kg Agusto Aichholz CORN CUTTER OPERATOR Work Phone: [facility] 11-18-2024 10:17-0400 Diastolic blood pressure 96 mm[Hg] Agusto Aichholz CORN CUTTER OPERATOR Work Phone: [facility] 11-18-2024 10:17-0400 Heart rate 73 /min Agusto Aichholz CORN CUTTER OPERATOR Work Phone: [facility] 11-18-2024 10:17-0400 Respiratory rate 19 /min Agusto Aichholz CORN CUTTER OPERATOR Work Phone: [facility] 11-18-2024 10:17-0400 SaO2% (BldA) [Mass fraction] 99 % Agusto Aichholz CORN CUTTER OPERATOR Work Phone: [facility] 11-18-2024 10:17-0400 Systolic blood pressure 164 mm[Hg] Agusto Aichholz CORN CUTTER OPERATOR Work Phone: [facility] 10-09-2024 11:10-0500 Diastolic blood pressure 97 mm[Hg] Sweta Verhoff PA-C Work Phone: [facility] 10-09-2024 11:10-0500 Heart rate 78 /min Sweta Verhoff PA-C Work Phone: [facility] 10-09-2024 11:10-0500 Respiratory rate 20 /min Sweta Verhoff PA-C Work Phone: [facility] 10-09-2024 11:10-0500 Systolic blood pressure 200 mm[Hg] Sweta Verhoff PA-C Work Phone: [facility] 09-11-2024 11:11-0500 Diastolic blood pressure 100 mm[Hg] Agusto Aichholz CORN CUTTER OPERATOR Work Phone: [facility] 09-11-2024 11:11-0500 Systolic blood pressure 200 mm[Hg] Agusto Aichholz CORN CUTTER OPERATOR Work Phone: [facility] 09-11-2024 10:57-0500 Body height 152.4 cm Agusto Aichholz CORN CUTTER OPERATOR Work Phone: [facility] 09-11-2024 10:57-0500 Body mass index (BMI) [Ratio] 25.58 kg/m2 Agusto Aichholz CORN CUTTER OPERATOR Work Phone: [facility] 09-11-2024 10:57-0500 Body temperature 98.8 [degF] Agusto Aichholz CORN CUTTER OPERATOR Work Phone: [facility] 09-11-2024 10:57-0500 Body weight 59.42 kg Agusto Aichholz CORN CUTTER OPERATOR Work Phone: [facility] 09-11-2024 10:57-0500 Heart rate 74 /min Agusto Aichholz CORN CUTTER OPERATOR Work Phone: [facility] 09-11-2024 10:57-0500 Respiratory rate 18 /min Agusto Aichholz CORN CUTTER OPERATOR Work Phone: [facility] 09-11-2024 10:57-0500 SaO2% (BldA) [Mass fraction] 97 % Agusto Aichholz CORN CUTTER OPERATOR Work Phone: [facility] 09-08-2024 08:00-0500 Body temperature 97.9 [degF] Agusto Aichholz Work Phone: [facility] 09-08-2024 08:00-0500 Diastolic blood pressure 79 mm[Hg] Agusto Aichholz Work Phone: [facility] 09-08-2024 08:00-0500 Heart rate 64 /min Agusto Aichholz Work Phone: [facility] 09-08-2024 08:00-0500 Respiratory rate 16 /min Agusto Aichholz Work Phone: [facility] 09-08-2024 08:00-0500 SaO2% (BldA) [Mass fraction] 96 % Agusto Aichholz Work Phone: [facility] 09-08-2024 08:00-0500 Systolic blood pressure 169 mm[Hg] Agusto Aichholz Work Phone: [facility] 09-08-2024 06:50-0500 Body weight 54.7 kg Agusto Aichholz Work Phone: [facility] 09-06-2024 12:51-0500 Body height 152.4 cm Agusto Aichholz Work Phone: [facility] 09-06-2024 00:36-0500 Body height 152.4 cm Agusto Aichholz Work Phone: [facility] 09-06-2024 00:36-0500 Body temperature 97.6 [degF] Agusto Aichholz Work Phone: [facility] 09-06-2024 00:36-0500 Body weight 57.6 kg Agusto Aichholz Work Phone: [facility] 09-06-2024 00:36-0500 Diastolic blood pressure 71 mm[Hg] Agusto Aichholz Work Phone: [facility] 09-06-2024 00:36-0500 Heart rate 75 /min Agusto Aichholz Work Phone: [facility] 09-06-2024 00:36-0500 Respiratory rate 18 /min Agusto Aichholz Work Phone: [facility] 09-06-2024 00:36-0500 SaO2% (BldA) [Mass fraction] 97 % Agusto Aichholz Work Phone: [facility] 09-06-2024 00:36-0500 Systolic blood pressure 160 mm[Hg] Agusto Aichholz Work Phone: [facility] 09-04-2024 11:25-0500 Diastolic blood pressure 110 mm[Hg] [facility] 09-04-2024 11:25-0500 Systolic blood pressure 216 mm[Hg] [facility] 09-04-2024 11:23-0500 Body height 152.4 cm [facility] 09-04-2024 11:23-0500 Body mass index (BMI) [Ratio] 24.9 kg/m2 [facility] 09-04-2024 11:23-0500 Body temperature 96.5 [degF] [facility] 09-04-2024 11:23-0500 Body weight 57.83 kg [facility] 09-04-2024 11:23-0500 Heart rate 73 /min [facility] 09-04-2024 11:23-0500 Respiratory rate 16 /min [facility] 09-04-2024 11:23-0500 SaO2% (BldA) [Mass fraction] 99 % [facility] 08-27-2024 14:36-0500 Body height 152.4 cm Agusto Barlowz CORN CUTTER OPERATOR Work Phone: [facility] 08-27-2024 14:36-0500 Body mass index (BMI) [Ratio] 25.94 kg/m2 Agusto Richholz CORN CUTTER OPERATOR Work Phone: [facility] 08-27-2024 14:36-0500 Body temperature 98.8 [degF] Agusto Ducholz CORN CUTTER OPERATOR Work Phone: [facility] 08-27-2024 14:36-0500 Body weight 60.24 kg Agusto Richholz CORN CUTTER OPERATOR Work Phone: [facility] Comment on above: with winter coat on 08-27-2024 14:36-0500 Diastolic blood pressure 86 mm[Hg] Agusto Aichholz CORN CUTTER OPERATOR Work Phone: [facility] 08-27-2024 14:36-0500 Heart rate 71 /min Agusto Aichholz CORN CUTTER OPERATOR Work Phone: [facility] 08-27-2024 14:36-0500 Respiratory rate 20 /min Agusto Aichholz CORN CUTTER OPERATOR Work Phone: [facility] 08-27-2024 14:36-0500 SaO2% (BldA) [Mass fraction] 97 % Agusto Richholz CORN CUTTER OPERATOR Work Phone: [facility] 08-27-2024 14:36-0500 Systolic blood pressure 178 mm[Hg] Agusto Ducholz CORN CUTTER OPERATOR Work Phone: [facility] 06-11-2024 11:32-0400 Body height 152.4 cm Agusto Aichholz CORN CUTTER OPERATOR Work Phone: [facility] 06-11-2024 11:32-0400 Body mass index (BMI) [Ratio] 25.19 kg/m2 Agusto Aichholz CORN CUTTER OPERATOR Work Phone: [facility] 06-11-2024 11:32-0400 Body temperature 98.1 [degF] Agusto Olmstead CORN CUTTER OPERATOR Work Phone: [facility] 06-11-2024 11:32-0400 Body weight 58.51 kg Agusto Olmstead CORN CUTTER OPERATOR Work Phone: [facility] 06-11-2024 11:32-0400 Diastolic blood pressure 82 mm[Hg] Agustobethany Zapataholz CORN CUTTER OPERATOR Work Phone: [facility] 06-11-2024 11:32-0400 Heart rate 75 /min Agustobethany Zapataholz CORN CUTTER OPERATOR Work Phone: [facility] 06-11-2024 11:32-0400 Respiratory rate 18 /min Agusto Barlowz CORN CUTTER OPERATOR Work Phone: [facility] 06-11-2024 11:32-0400 SaO2% (BldA) [Mass fraction] 97 % Agusto Barlowz CORN CUTTER OPERATOR Work Phone: [facility] 06-11-2024 11:32-0400 Systolic blood pressure 140 mm[Hg] Agusto Barlowz CORN CUTTER OPERATOR Work Phone: [facility] 06-05-2024 15:05-0400 Body height 154.94 cm [facility] 06-05-2024 15:05-0400 Body mass index (BMI) [Ratio] 23.4 kg/m2 [facility] 06-05-2024 15:05-0400 Body temperature 97.6 [degF] [facility] 06-05-2024 15:05-0400 Body weight 56.3 kg [facility] 06-05-2024 15:05-0400 Diastolic blood pressure 75 mm[Hg] [facility] 06-05-2024 15:05-0400 Heart rate 86 /min [facility] 06-05-2024 15:05-0400 Respiratory rate 16 /min [facility] 06-05-2024 15:05-0400 SaO2% (BldA) [Mass fraction] 97 % [facility] 06-05-2024 15:05-0400 Systolic blood pressure 123 mm[Hg] [facility] 05-01-2024 10:45-0400 Diastolic blood pressure 96 mm[Hg] Juanito Barnard MD Work Phone: [facility] 05-01-2024 10:45-0400 Heart rate 74 /min Juanito Barnard MD Work Phone: [facility] 05-01-2024 10:45-0400 Systolic blood pressure 173 mm[Hg] Juanito Barnard MD Work Phone: [facility] 04-16-2024 14:25-0400 Body height 152.4 cm Agusto Aysha CORN CUTTER OPERATOR Work Phone: [facility] 04-16-2024 14:25-0400 Body mass index (BMI) [Ratio] 24.88 kg/m2 Agusto Aichanilaz CORN CUTTER OPERATOR Work Phone: [facility] 04-16-2024 14:25-0400 Body temperature 97.81 [degF] Agusto Aichholz CORN CUTTER OPERATOR Work Phone: [facility] 04-16-2024 14:25-0400 Body weight 57.79 kg Agusto Aichholz CORN CUTTER OPERATOR Work Phone: [facility] 04-16-2024 14:25-0400 Diastolic blood pressure 80 mm[Hg] Agusto Aichholz CORN CUTTER OPERATOR Work Phone: [facility] 04-16-2024 14:25-0400 Heart rate 80 /min Agusto Aichholz CORN CUTTER OPERATOR Work Phone: [facility] 04-16-2024 14:25-0400 Respiratory rate 18 /min Agusto Aichholz CORN CUTTER OPERATOR Work Phone: [facility] 04-16-2024 14:25-0400 SaO2% (BldA) [Mass fraction] 95 % Agusto Aichholz CORN CUTTER OPERATOR Work Phone: [facility] 04-16-2024 14:25-0400 Systolic blood pressure 116 mm[Hg] Agusto Aysha SMITH Work Phone: [facility] 03-26-2024 10:48-0400 Body mass index (BMI) [Ratio] 24.41 kg/m2 Carmenza Espinosa MD Work Phone: [facility] 03-26-2024 10:48-0400 Body weight 56.7 kg Carmenza Espinosa MD Work Phone: [facility] Comment on above: [place] 01-12-2024 13:50-0400 Diastolic blood pressure 69 mm[Hg] Taurus Ballard MD Work Phone: [facility] 01-12-2024 13:50-0400 Heart rate 75 /min Taurus Ballard MD Work Phone: [facility] 01-12-2024 13:50-0400 Systolic blood pressure 142 mm[Hg] Taurus Ballard MD Work Phone: [facility] 10-25-2023 15:12-0500 Blood Pressure Location HEIDY CATALINA [facility] 10-25-2023 15:12-0500 Body temperature 96.8 [degF] HEIDY CATALINA [facility] 10-25-2023 15:12-0500 Diastolic blood pressure 78 mm[Hg] HEIDY CATALINA [facility] 10-25-2023 15:12-0500 Heart rate 86 /min HEIDY CATALINA [facility] 10-25-2023 15:12-0500 Systolic blood pressure 122 mm[Hg] HEIDY CATALINA [facility] 08-01-2023 15:00-0500 Body height 154.94 cm [facility] 06-08-2023 13:00-0400 Body height 154.94 cm Tondra Mapus Other [employer] Other 06-08-2023 13:00-0400 Body mass index (BMI) [Ratio] 25.37 kg/m2 Tondra Mapus Other [employer] Other 06-08-2023 13:00-0400 Body weight 60.92 kg Tondra Mapus Other [employer] Other 06-08-2023 13:00-0400 Diastolic blood pressure 66 mm[Hg] Tondra Mapus Other [employer] Other 06-08-2023 13:00-0400 Respiratory rate 18 /min Tondra Mapus Other [employer] Other 06-08-2023 13:00-0400 SaO2% (BldA) [Mass fraction] 100 % Tondra Mapus Other [employer] Other 06-08-2023 13:00-0400 Systolic blood pressure 107 mm[Hg] Tondra Mapus Other [employer] Other 05-18-2023 11:00-0400 Body height 154.94 cm Tondra Mapus Other [employer] Other 05-18-2023 11:00-0400 Body mass index (BMI) [Ratio] 24.69 kg/m2 Tondra Mapus Other [employer] Other 05-18-2023 11:00-0400 Body weight 59.29 kg Tondra Mapus Other [employer] Other 05-18-2023 11:00-0400 Diastolic blood pressure 96 mm[Hg] Tondra Mapus Other [employer] Other 05-18-2023 11:00-0400 Respiratory rate 18 /min Tondra Mapus Other [employer] Other 05-18-2023 11:00-0400 SaO2% (BldA) [Mass fraction] 97 % Tondra Mapus Other [employer] Other 05-18-2023 11:00-0400 Systolic blood pressure 161 mm[Hg] Tondra Mapus Other [employer] Other 02-22-2023 08:34-0400 Blood Pressure Location Lisa Lue [facility] 02-22-2023 08:34-0400 Diastolic blood pressure 66 mm[Hg] Lisa Lue [facility] 02-22-2023 08:34-0400 Heart rate 76 /min Lisa Lue [facility] 02-22-2023 08:34-0400 Systolic blood pressure 106 mm[Hg] Lisa Lue [facility] 12-27-2022 16:00-0400 Body height 154.94 cm [facility] Other [employer] Other 12-27-2022 16:00-0400 Body mass index (BMI) [Ratio] 26.11 kg/m2 [employer] [employer] Other [employer] Other 12-27-2022 16:00-0400 Body temperature 96.5 [degF] Eli Mendenhalls Other [employer] Other 12-27-2022 16:00-0400 Body weight 62.69 kg Eli Mendenhalls Other [employer] Other 12-27-2022 16:00-0400 Diastolic blood pressure 98 mm[Hg] Eli Mendenhalls Other [employer] Other 12-27-2022 16:00-0400 Respiratory rate 18 /min Eli Mendenhalls Other [employer] Other 12-27-2022 16:00-0400 SaO2% (BldA) [Mass fraction] 98 % Eli Mendenhalls Other [employer] Other 12-27-2022 16:00-0400 Systolic blood pressure 151 mm[Hg] Eli Mendenhalls Other [employer] Other 09-21-2022 08:42-0500 Blood Pressure Location Lisa Lue [facility] 09-21-2022 08:42-0500 Diastolic blood pressure 67 mm[Hg] Lisa Lue [facility] 09-21-2022 08:42-0500 Heart rate 74 /min Lisa Lue [facility] 09-21-2022 08:42-0500 Systolic blood pressure 103 mm[Hg] Lisa Lue [facility] Encounters Encounter Date Encounter Type Care Provider Facility Start: 01-30-2025 End: 01-30-2025 Clinisync Result Encounter Agusto Olmstead CORN CUTTER OPERATOR Work Phone: [facility] External Department Unsolicited Start: 01-30-2025 End: 01-30-2025 Clinisync Result Encounter Agusto Olmstead CORN CUTTER OPERATOR Work Phone: [facility] External Department Unsolicited Start: 01-27-2025 End: 01-27-2025 Office outpatient visit 40 minutes Agusto Olmstead CORN CUTTER OPERATOR Work Phone: [facility] CW FM Comment on above: Chronic kidney disea se, stage 4 (severe) (CMS/HCC) (Primary Dx); Mixed hyperlipidemia (CMS/HCC); Essential (primary) hypertension (CMS/HCC); Burning with urination; UTI symptoms; Urinary tract infection symptoms; Type 2 diabetes mellitus with diabetic neuropathy, with long-term current use of insulin (CMS/[facility]); History of neurogenic bladder; Neurogenic bladder; 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; Hyperparathyroidism, unspecified (CMS/HCC); B12 deficiency; Type 2 diabetes mellitus with hyperglycemia, with long-term current use of insulin (CMS/[facility]); Vitamin D deficiency; Hypomagnesemia; Non compliance w medication regimen; Fatigue, unspecified type; Other fatigue Start: 01-27-2025 End: 01-27-2025 ambulatory AGUSTO OLMSTEAD Not Available Start: 01-27-2025 End: 01-27-2025 Bamboo flowsheet Agusto Olmstead CORN CUTTER OPERATOR Work Phone: [facility] C[facility] FM Start: 01-27-2025 End: 01-27-2025 Bamboo flowsheet Agusto Olmstead CORN CUTTER OPERATOR Work Phone: [facility] Start: 01-15-2025 End: 01-17-2025 Sotero Barreto RN [facility] Comment on above: 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; Complex regional pain syndrome type 1 of right upper extremity Start: 01-08-2025 End: 01-08-2025 Office outpatient visit 25 minutes Sweta Ch PA-C Work Phone: [facility] Comment on above: 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 (Primary Dx) Start: 01-08-2025 End: 01-08-2025 ambulatory SWETA CH [facility] Start: 12-18-2024 End: 12-20-2024 Refill Agusto Marina [employer]SEM[employer] [facility] Comment on above: 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 Start: 12-05-2024 End: 12-05-2024 ambulatory CORY ANGELES Not Available Start: 12-05-2024 End: 12-05-2024 Postop follow up visit related to original px Cory Angeles DPM Work Phone: [facility] Comment on above: Cellulitis of right foot (Primary Dx); Laceration of right foot with foreign body, initial encounter; Diabetes mellitus due to underlying condition with diabetic polyneuropathy, with long-term current use of insulin (CMS/HCC) Start: 12-04-2024 End: 12-04-2024 Bamboo flowsheet Agusto Olmstead CORN CUTTER OPERATOR Work Phone: [facility] Start: 12-04-2024 End: 12-04-2024 Bamboo flowsheet Agusto Olmstead CORN CUTTER OPERATOR Work Phone: [facility] Start: 12-04-2024 End: 12-04-2024 Office outpatient visit 25 minutes Agusto Olmstead CORN CUTTER OPERATOR Work Phone: [facility] CW FM Comment on above: Acute renal failure, unspecified acute renal failure type (CMS/HCC) (Primary Dx); Chronic kidney disease, stage 4 (severe) (CMS/HCC); Essential (primary) hypertension (CMS/HCC); Type 2 diabetes mellitus with diabetic neuropathy, with long-term current use of insulin (CMS/HCC); History of neurogenic bladder; Type 2 diabetes mellitus with hyperglycemia, with long-term current use of insulin (CMS/HCC); planning coordinator (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 (CMS/HCC); Non compliance w medication regimen; Memory impairment Start: 12-04-2024 End: 12-04-2024 ambulatory AGUSTO AICChristianoHOLZ Not Available Start: 11-24-2024 Non-patient / Non-visit Agusto Aichholz Work Phone: [facility] Work Phone: Start: 11-23-2024 End: 11-26-2024 Evaluation and management of inpatient Agusto Aichholz Work Phone: [facility] Work Phone: Start: 11-21-2024 End: 11-22-2024 Clinisync Result Encounter Agusto Cainz CORN CUTTER OPERATOR Work Phone: [facility] External Department Unsolicited Start: 11-21-2024 End: 11-22-2024 Clinisync Result Encounter Agusto Aichholz CORN CUTTER OPERATOR Work Phone: [facility] External Department Unsolicited Start: 11-18-2024 End: 11-18-2024 Bamboo flowsheet Agusto Aichholz CORN CUTTER OPERATOR Work Phone: [facility] C[facility] FM Start: 11-18-2024 End: 11-18-2024 Bamboo flowsheet Agusto Aichholz CORN CUTTER OPERATOR Work Phone: [facility] Start: 11-18-2024 End: 11-18-2024 Patient encounter procedure Agusto Aichholz CORN CUTTER OPERATOR Work Phone: [facility] Comment on above: Encounter for subseq uent annual wellness visit (AWV) in Medicare patient (Primary Dx); RSD (reflex sympathetic dystrophy); Type 2 diabetes mellitus with diabetic neuropathy, with long-term current use of insulin (CMS/[facility]ERLY [facility]); Essential (primary) hypertension (CMS/FORMERLY [facility]); Chronic kidney disease, stage 4 (severe) (CMS/FORMERLY [facility]) ; Type 2 diabetes mellitus with hyperglycemia, with long-term current use of insulin (CMS/FORMERLY [facility]); planning coordinator (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 ([facility]ER[facility]); Non compliance w medication regimen; Right foot pain; Chest pain, unspecified type; Continuous leakage of urine; Neurogenic bladder Start: 11-18-2024 End: 11-18-2024 ambulatory AGUSTO AICHHOLZ Not Available Start: 11-15-2024 End: 11-15-2024 Refill Barbara Lucero RN [facility] Comment on above: 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 Start: 11-14-2024 End: 11-14-2024 Clinisync Result Encounter Agusto Aicchristianoholz CORN CUTTER OPERATOR Work Phone: [facility] External Department Unsolicited Start: 11-14-2024 End: 11-14-2024 Clinisync Result Encounter Agusto Aichholz CORN CUTTER OPERATOR Work Phone: [facility] External Department Unsolicited Start: 11-14-2024 End: 11-15-2024 Refill Lila Che RN [facility] Comment on above: 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; Complex regional pain syndrome type 1 of right upper extremity Start: 11-11-2024 End: 11-11-2024 Orders Only Agusto Aichholz CORN CUTTER OPERATOR Work Phone: [facility] Comment on above: Right foot pain (Radha adama Dx) Start: 10-29-2024 End: 10-29-2024 Refill Agusto Aichholz CORN CUTTER OPERATOR Work Phone: [facility] Comment on above: Type 2 diabetes maria m itus with hyperglycemia, with long-term current use of insulin ([facility]) (Primary Dx) Start: 10-24-2024 End: 10-24-2024 Bamboo flowsheet Agusto Aichholz CORN CUTTER OPERATOR Work Phone: [facility] Start: 10-24-2024 End: 10-24-2024 Bamboo flowsheet Agusto Aichholz CORN CUTTER OPERATOR Work Phone: [facility] Start: 10-24-2024 End: 10-25-2024 Refill Asia Barreto RN [facility] Comment on above: Complex regional saranya n syndrome type 1 of right upper extremity; Reflex sympathetic dystrophy of right upper extremity Start: 10-10-2024 End: 10-11-2024 Refill Yesenia Burnett RN [facility] Comment on above: 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; Complex regional pain syndrome type 1 of right upper extremity Start: 10-09-2024 End: 10-09-2024 Office outpatient visit 25 minutes Sweta Ch PA-C Work Phone: [facility] Comment on above: Complex regional saranya n syndrome type 1 of right upper extremity (Primary Dx) Start: 10-09-2024 End: 10-09-2024 ambulatory [facility] Start: 09-13-2024 End: 09-13-2024 Refill Barbara Lucero RN [facility] Comment on above: 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 Start: 09-11-2024 End: 09-11-2024 Bamboo flowsheet Agusto Olmstead CORN CUTTER OPERATOR Work Phone: [facility] CW FM Start: 09-11-2024 End: 09-11-2024 Bamboo flowsheet Agusto Olmstead CORN CUTTER OPERATOR Work Phone: [facility] Start: 09-11-2024 End: 09-11-2024 Office outpatient visit 25 minutes gAusto Olmstead NP Work Phone: [facility] Comment on above: Type 2 diabetes maria m itus with diabetic neuropathy, with long- term current use of insulin ([facility]) (Primary Dx); Malignant neoplasm of cervix uteri, unspecified ([facility]); Rheumatoid arthritis, unspecified ([facility]); Essential (primary) hypertension ([facility]); Chronic kidney disease, stage 4 (severe) ([facility]); Neurogenic bladder; Type 2 diabetes mellitus with hyperglycemia, with long-term current use of insulin ([facility]); Immunodeficiency due to conditions classified elsewhere ([facility]); planning coordinator (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 ([facility]) Start: 09-11-2024 End: 09-11-2024 ambulatory AGUSTO AICHHOLZ Not Available Start: 09-09-2024 End: 09-09-2024 Telephone encounter Heidy Belcher CMA [facility] Start: 09-06-2024 Non-patient / Non-visit Agusto Aichholz Work Phone: [facility] Phys[facility] Work Phone: Start: 09-05-2024 End: 09-08-2024 Evaluation and management of inpatient Agusto Aichholz Work Phone: [facility] [place] [facility] Work Phone: Start: 09-04-2024 Non-patient / Non-visit Agusto Aichholz Work Phone: [facility] Work Phone: Start: 09-04-2024 End: 09-07-2024 Clinisync Result Encounter Generic External Data Provider [facility] External Department Unsolicited Start: 09-04-2024 End: 09-07-2024 Clinisync Result Encounter Generic External Data Provider [facility] External Department Unsolicited Start: 09-04-2024 End: 09-04-2024 ambulatory [facility] Work Phone: Start: 09-04-2024 End: 09-04-2024 Patient encounter procedure [facility] [place] Work Phone: Start: 08-28-2024 End: 08-28-2024 Clinisync Result Encounter Generic External Data Provider [facility] External Department Unsolicited Start: 08-28-2024 End: 08-28-2024 Clinisync Result Encounter Generic External Data Provider [facility] External Department Unsolicited Start: 08-28-2024 Non-patient / Non-visit [facility] Physician [facility] Work Phone: Start: 08-27-2024 End: 08-27-2024 Office outpatient visit 25 minutes Agusto Aichholz CORN CUTTER OPERATOR Work Phone: [facility] CWM FM Comment on above: Essential (primary) hypertension (CMS/HCC) (Primary Dx); Type 2 diabetes mellitus with diabetic neuropathy, with long-term current use of insulin (CMS/[facility]); Chronic kidney disease, stage 4 (severe) (CMS/HCC); Neurogenic bladder; Type 2 diabetes mellitus with hyperglycemia, with long-term current use of insulin (CMS/[facility]); Type 2 diabetes mellitus with diabetic neuropathy, unspecified whether alf insulin use (CMS/[facility]); Other chest pain; Continuous leakage of urine Start: 08-27-2024 End: 08-27-2024 Bamboo flowsheet Agusto Olmstead CORN CUTTER OPERATOR Work Phone: [facility] CWM FM Start: 08-27-2024 End: 08-27-2024 Bamboo flowsheet Agusto Olmstead CORN CUTTER OPERATOR Work Phone: [facility] CW FM Start: 08-27-2024 End: 08-27-2024 ambulatory AGUSTO OLMSTEAD Not Available Start: 08-22-2024 End: 08-23-2024 Refill Asia Barreot RN [facility] Comment on above: 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 Start: 08-13-2024 End: 08-13-2024 Orders Only Agusto Olmstead CORN CUTTER OPERATOR Work Phone: [facility] CWM FM Start: 08-12-2024 Non-patient / Non-visit Agusto Olmstead Work Phone: [facility] Work Phone: Start: 08-08-2024 End: 08-08-2024 Clinisync Result Encounter Agusto Olmstead CORN CUTTER OPERATOR Work Phone: [facility] External Department Unsolicited Start: 08-08-2024 End: 08-08-2024 Clinisync Result Encounter Agusto Olmstead CORN CUTTER OPERATOR Work Phone: [facility] External Department Unsolicited Start: 07-03-2024 End: 07-03-2024 ambulatory SWETA N [facility] Start: 06-26-2024 End: 06-26-2024 Telephone encounter Adama Velasco RN Work Phone: Urology Comment on above: Label Remover - O ther; Returning Patient's Call Start: 06-11-2024 End: 06-11-2024 Bamboo flowsheet Agusto Olmstead CORN CUTTER OPERATOR Work Phone: [facility] Start: 06-11-2024 End: 06-11-2024 Bamboo flowsheet Agusto Olmstead CORN CUTTER OPERATOR Work Phone: [facility] Start: 06-11-2024 End: 06-11-2024 Office outpatient visit 25 minutes Agusto Olmstead NP Work Phone: [facility] Comment on above: Type 2 diabetes maria m itus with hyperglycemia, with long-term current use of insulin (CMS/[facility]) (Primary Dx); Type 2 diabetes mellitus with [...] diabetes mellitus with diabetic neuropathy, unspecified whether alf insulin use (CMS/HCC); RSD (reflex sympathetic dystrophy); Continuous leakage of urine; 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 Nephrology Ashlie Work Phone: Start: 05-10-2024 Non-patient / Non-visit [facility] Work Phone: Start: 05-08-2024 End: 05-08-2024 Refill Agusto Aysha CORN CUTTER OPERATOR Work Phone: [facility] Comment on above: Nausea and vomiting, unspecified [...] Start: 04-26-2024 End: 04-27-2024 Non-patient / Non-visit [facility] Work Phone: Start: 04-26-2024 End: 05-01-2024 Clinisync [...] Department Unsolicited Start: 04-24-2024 End: 04-24-2024 ambulatory [facility] Start: 04-24-2024 End: 04-24-2024 ambulatory [facility] Start: 04-18-2024 End: 04-18-2024 Refill Agusto Aysha CORN CUTTER OPERATOR Work Phone: [facility] Comment on above: Chronic cough (Prima ry Dx) Start: 04-16-2024 End: 04-16-2024 Office outpatient visit 25 minutes Agusto Olmstead CORN CUTTER OPERATOR Work Phone: [facility] Comment on above: Chronic cough (Prima ry Dx); Type 2 diabetes mellitus with diabetic chronic kidney disease (HCC) ([facility]); Chronic kidney disease, stage 3b (HCC) ([facility]/HCC); Hyperparathyroidism, unspecified ([facility]/HCC); Rheumatoid arthritis, unspecified ([facility]/HCC); Malignant neoplasm of cervix uteri, unspecified ([facility]/HCC); Type 2 diabetes mellitus with hyperglycemia, with long-term current use of insulin ([facility]) Start: 04-16-2024 End: 04-16-2024 ambulatory AGUSTO AICHHOLZ Not Available Start: 04-16-2024 End: 04-16-2024 Bamboo flowsheet Agusto Olmstead CORN CUTTER OPERATOR Work Phone: [facility] Start: 04-16-2024 End: 04-16-2024 Bamboo flowsheet Agusto Richmundo CORN CUTTER OPERATOR Work Phone: [facility] Start: 04-15-2024 End: 04-15-2024 ambulatory [facility] Start: 04-09-2024 End: 04-09-2024 ambulatory CARMENZA ESPINOSA Facility:[facility] Start: 04-09-2024 End: 04-09-2024 Patient encounter procedure Carmenza Espinosa MD Work Phone: Urology Comment on above: Neurogenic bladder ( Primary Dx); BURKE (stress urinary incontinence, female) Start: 04-09-2024 End: 04-09-2024 Telemedicine consultation with patient Carmenza Espinosa MD Work Phone: Urology Start: 04-08-2024 End: 04-08-2024 ambulatory [facility] Medicine Start: 03-29-2024 End: 03-29-2024 Nursing evaluation of patient and report [employer] Urology Comment on above: Stress incontinence (Primary Dx); Dysfunctional voiding of urine Start: 03-29-2024 End: 03-29-2024 ambulatory [facility] Facility:[facility] Start: 03-27-2024 ambulatory Nuria garrett APRN.CNP Work Phone: Pulmonary Medicine Start: 03-26-2024 End: 03-26-2024 ambulatory CARMENZA ESPINOSA Facility:[facility] Start: 03-26-2024 End: 03-26-2024 Patient encounter procedure Carmenza Espinosa MD Work Phone: Urology Comment on above: Retention of urine ( Primary Dx); Screening for genitourinary condition; Type 2 diabetes mellitus with hyperglycemia, with long-term current use of insulin (HCC); BURKE (stress urinary incontinence, female) Start: 03-16-2024 End: 03-16-2024 ambulatory [facility]YOTHI [facility] Start: 03-15-2024 End: 03-15-2024 ambulatory ZACKERY Rodriguez MIRANDA [facility] Start: 02-26-2024 Telephone encounter Flavio Coon RN Ur jurgenogy Start: 02-12-2024 Telephone encounter Vonnie Wilder RN Ur jurgenogy Comment on above: Results - Ct Start: 02-01-2024 End: 02-01-2024 ambulatory [facility] Facility:[facility] Start: 02-01-2024 End: 02-01-2024 Subsequent hospital visit by physician Arrival Time Radiology Work Phone: Radiology Pet CT Comment on above: Other hydronephrosis [N13.39] Start: 01-24-2024 End: 01-24-2024 ambulatory SWETA N GUANAKOANIYAH [facility] Start: 01-12-2024 End: 01-12-2024 Patient encounter procedure Taurus Ballard MD Work Phone: Urology Comment on above: Other hydronephrosis (Primary Dx); Screening for genitourinary condition Start: 01-12-2024 End: 01-12-2024 ambulatory [facility] Facility:[facility] Start: 11-02-2023 ambulatory PROMISE Noel acility:ALLYN Dailey Start: 10-25-2023 End: 10-26-2023 ambulatory PA-C HEIDY ARNOLD Facility:[facility] [place] Start: 10-25-2023 End: 10-25-2023 Patient encounter procedure HEIDY ARNOLD [facility] Ashlie Start: 10-11-2023 Patient encounter procedure Agusto Zapatamundo CORN CUTTER OPERATOR Work Phone: [facility] Start: 10-10-2023 ambulatory PA-C HEIDY ARNOLD F acility:[facility] [place] Start: 09-28-2023 ambulatory Drew Esqueda Research Coordinator FV Provider Adult Comment on above: [facility] IRB# [id number] Start: 09-28-2023 E-mail encounter fro m caregiver Drew Esqueda Research Coordinator [facility] Start: 09-27-2023 Telephone encounter Drew bourne Research Coordinator FV Provider Adult Comment on above: Research F/U Start: 09-26-2023 Telephone encounter Drew bourne Research Coordinator FV Provider Adult Comment on above: Research F/U Start: 09-12-2023 End: 09-13-2023 ambulatory PA-C HEIDY ARNOLD Facility:[facility] [place] Start: 09-12-2023 End: 09-12-2023 Patient encounter procedure HEIDY DOMINGORY [facility] Haroldo Start: 09-05-2023 End: 09-05-2023 ambulatory Tondra Mapus Other [employer] Other Start: 09-05-2023 Telephone encounter Tondra Mapus [facility] Start: 08-01-2023 End: 08-01-2023 Patient encounter procedure [facility] Nephrology Michael Work Phone: Start: 07-18-2023 End: 07-19-2023 ambulatory PA-C HEIDY ARNOLD Facility:[facility] [place] Start: 07-05-2023 End: 07-05-2023 Orders Only Taurus Ballard MD Work Phone: Urology Comment on above: Kidney cyst, acquire d (Primary Dx) Start: 07-05-2023 Telephone encounter Eli Sprague [facility] Start: 06-28-2023 End: 06-29-2023 ambulatory Lisa Porras Facility:[facility] Start: 06-28-2023 End: 06-28-2023 Patient encounter procedure Lisa Porras [facility] Start: 06-26-2023 End: 06-26-2023 ambulatory Tondra Mapus Other [employer] Other Start: 06-26-2023 Telephone encounter Tondra Mapus [facility] Start: 06-23-2023 Telephone encounter Heidy salas RN Urology Comment on above: Surgical Followup Start: 06-22-2023 End: 06-23-2023 ambulatory TAURUS BALLARD Facility:[facility] Start: 06-19-2023 ambulatory Taurus newton MD Work Phone: Urology Comment on above: Aislinn Wheeler upcomin g procedure Start: 06-15-2023 Telephone encounter Vonnie Wilder RN Ur ology Comment on above: Pre-Op Teaching Start: 06-12-2023 End: 06-12-2023 ambulatory Tondra Mapus Other [employer] Other Start: 06-12-2023 Telephone encounter Tondra Mapus [facility] Start: 06-08-2023 End: 06-08-2023 Lab Drop off HEIDY ARNOLD [facility] Start: 06-08-2023 End: 06-08-2023 Patient encounter procedure AGUSTO OLMSTEAD [facility] Start: 06-08-2023 (PUMP/CGM) Pump / Sensor Sara Augustine [facility] Start: 06-08-2023 End: 06-09-2023 ambulatory PA-C HEIDY ARNOLD [facility] [employer] Other Start: 05-22-2023 End: 05-23-2023 ambulatory Lisa M. Lue Facility:[facility] Start: 05-22-2023 End: 05-22-2023 Patient encounter procedure Lisa Pulido. Vern [facility] Start: 05-18-2023 End: 05-18-2023 ambulatory Sara Dumontus Other [employer] Other Start: 05-18-2023 [facility] visit new patient [facility] Start: 05-18-2023 Telephone encounter Taurus rees MD Work Phone: Urology Comment on above: Follow Up Start: 05-17-2023 End: 05-17-2023 ambulatory TAURUS BALLARD Facility:[facility] Start: 05-11-2023 End: 2023 ambulatory PA-C HEIDY ARNOLD Facility:[facility] Start: 05-11-2023 End: 05-11-2023 Lab Drop off HEIDY ARNOLD [facility] Start: 05-03-2023 End: 05-04-2023 ambulatory Lisa M. Lue Facility:[facility] Start: 04-18-2023 End: 04-19-2023 ambulatory PA-C HEIDY ARNOLD Facility:[facility] Start: 04-18-2023 End: 04-19-2023 ambulatory Lisa M. Lue Facility:[facility] Start: 04-18-2023 End: 04-18-2023 Lab Drop off HEIDY ARNOLD [facility] Start: 04-18-2023 End: 04-18-2023 Patient encounter procedure Lisa PulidoIrina Sharifjennifer [facility] [place] Start: 04-04-2023 End: 04-04-2023 ambulatory Brigette Wesley Other [employer] Other Start: 04-04-2023 Telephone encounter Brigette Wesley [facility] Start: 02-22-2023 End: 02-23-2023 ambulatory Lisa Porras Facility:[facility] Start: 02-22-2023 End: 02-22-2023 Patient encounter procedure Lisa Porras [facility] Start: 01-09-2023 End: 01-09-2023 ambulatory Aziz Bakhous Other [employer] Other Start: 01-09-2023 Telephone encounter Azyanet Bakhous [facility] Start: 01-03-2023 End: 01-04-2023 ambulatory WEB METHODS DEVELOPER AGUSTO AICHHOLZ Facility:[facility] Start: 12-28-2022 End: 12-29-2022 ambulatory WEB METHODS DEVELOPER AGUSTO AICHHOLZ Facility:[facility] Start: 12-27-2022 End: 12-27-2022 ambulatory Aziz Bakhous Other [employer] Other Start: 12-27-2022 Office outpatient ne w 30 minutes Aziz Bakhous [facility] Start: 12-15-2022 End: 12-16-2022 ambulatory WEB METHODS DEVELOPER AGUSTO AICHHOLZ Facility:[facility] Start: 12-14-2022 End: 12-15-2022 ambulatory RAMON ENRIQUE Facility:[facility] Start: 10-27-2022 End: 10-28-2022 ambulatory WEB METHODS DEVELOPER AGUSTO AICHHOLZ Facility:[facility] Start: 10-24-2022 End: 10-25-2022 ambulatory WEB METHODS DEVELOPER AGUSTO AICHHOLZ Facility:[facility] Start: 10-12-2022 End: 10-13-2022 ambulatory WEB METHODS DEVELOPER AGUSTO AICHHOLZ Facility:[facility] Start: 10-05-2022 End: 10-06-2022 ambulatory WEB METHODS DEVELOPER AGUSTO AICHHOLZ Facility:[facility] Start: 09-29-2022 End: 09-30-2022 ambulatory WEB METHODS DEVELOPER AGUSTO AICHHOLZ Facility:[facility] Start: 09-21-2022 End: 09-22-2022 ambulatory PETER D HIGHLANDER Facility:[facility] Start: 09-21-2022 End: 09-21-2022 Patient encounter procedure Lisa Porras [facility] Start: 09-15-2022 End: 09-16-2022 ambulatory WEB METHODS DEVELOPER AGUSTO DUCHOLZ Facility:[facility] Start: 09-13-2022 End: 09-13-2022 Patient encounter procedure HEIDY ARNOLD [facility] Start: 09-08-2022 End: 09-09-2022 ambulatory WEB METHODS DEVELOPER AGUSTO AICHHOLZ Facility:[facility] Start: 09-02-2022 End: 09-03-2022 ambulatory PETER D HIGHLANDER Facility:[facility] Start: 08-26-2022 End: 08-27-2022 ambulatory PETER D HIGHLANDER Facility:[facility] Start: 08-09-2022 End: 08-10-2022 ambulatory PETER D HIGHLANDER Facility:[facility] Start: 08-05-2022 End: 08-06-2022 ambulatory PETER D HIGHLANDER Facility:[facility] Start: 08-04-2022 End: 08-05-2022 ambulatory PETER D HIGHLANDER Facility:[facility] Start: 08-03-2022 End: 08-04-2022 ambulatory WEB METHODS DEVELOPER AGUSTO AICHHOLZ Facility:[facility] Start: 08-02-2022 End: 08-03-2022 ambulatory WEB METHODS DEVELOPER AGUSTO AICHHOLZ Facility:[facility] Start: 08-01-2022 End: 08-02-2022 ambulatory KIARA OLMSTEAD Facility:[facility] Start: 07-19-2022 End: 07-20-2022 ambulatory WEB METHODS DEVELOPER AGUSTO OLMSTEAD Facility:[facility] Start: 07-08-2022 End: 07-09-2022 ambulatory WEB METHODS DEVELOPER AGUSTO OLMSTEAD Facility:[facility] Start: 07-06-2022 End: 07-07-2022 ambulatory WEB METHODS DEVELOPER AGUSTO OLMSTEAD Facility:[facility] Start: 07-05-2022 End: 07-06-2022 ambulatory RAMON Tillman [facility] Facility:[facility] Start: 06-28-2022 End: 06-29-2022 ambulatory RAMON Tillman [facility] Facility:[facility] Start: 06-24-2022 End: 06-25-2022 ambulatory [facility] Primo [facility] Facility:[facility] Start: 06-11-2022 End: 06-16-2022 Evaluation and management of inpatient DR NENO VIEIRA . Facility:[facility] Start: 06-02-2022 End: 06-02-[address] NELL PALMA Facility:[facility] Start: 06-02-2022 End: 06-03-2022 ambulatory RAMON Tillman [facility] Facility:[facility] Start: 2022 End: 2022 ambulatory RAQUEL SABA . Facility:[facility] Start: 01-27-2021 End: 01-27-2021 Telephone encounter Barb Silva MD Work Phone: Nephrology Comment on above: Appointment Procedures Date Procedure Procedure Detail Performing Clinician Start: 01-30-2025 ALL CBC WITH AUTO DIFF Augsto Olmstead CORN CUTTER OPERATOR Work Phone: Start: 01-27-2025 Urnls dip stick/tabl et rgnt non-auto w/o micrscp Agusto Olmstead CORN CUTTER OPERATOR Work Phone: Start: 11-25-2024 Radionuclide myocard ial perfusion stress study Agusto Olmstead Work Phone: Start: 11-24-2024 X-ray of right foot Lis bethany Olmstead Work Phone: Start: 11-23-2024 X-ray of right foot Lis a Aysha Work Phone: Start: 11-23-2024 CT of abdomen and pe lvis without contrast Agusto Olmstead Work Phone: Start: 11-23-2024 Plain chest X-ray Agusto Olmstead Work Phone: Start: 11-23-2024 Urine culture Agusto flower Work Phone: Start: 11-21-2024 ALL CBC WITH AUTO DIFF Agusto Olmstead CORN CUTTER OPERATOR Work Phone: Start: 11-21-2024 ECG 12-LEAD Generic Ex ternal Data Provider Start: 11-18-2024 Hemoglobin glycosyla madhavi a1c Agusto Olmstead CORN CUTTER OPERATOR Work Phone: Start: 11-14-2024 XR FOOT RT MIN 3V Agusto Olmstead CORN CUTTER OPERATOR Work Phone: Start: 09-06-2024 Ultrasonography of bilateral kidneys Agusto Olmstead Work Phone: Start: 09-05-2024 Urine culture Agusto flower Work Phone: Start: 09-04-2024 Bacteria identified in Urine by Culture Generic External Data Provider Start: 08-28-2024 HMHP CBC WITH PLATEL ET NO DIFFERENTIAL Generic External Data Provider Start: 08-08-2024 MLR HEMOGLOBIN A1C Agusto Olmstead CORN CUTTER OPERATOR Work Phone: Start: 05-01-2024 Urnls dip stick/tabl et rgnt auto w/o microscopy Bulk Order Provider Start: 04-26-2024 BLOOD CULTURE 1 Generic External Data Provider Start: 04-26-2024 BLOOD CULTURE 2 Generic External Data Provider Start: 04-25-2024 Bacteria identified in Urine by Culture Generic External Data Provider Start: 04-17-2024 Mammography Agusto Kelly jeana CORN CUTTER OPERATOR Work Phone: Start: 03-26-2024 Urnls dip stick/tabl et rgnt auto w/o microscopy Carmenza Espinosa MD Work Phone: Start: 02-01-2024 Ct abdomen & pelvis w/o contrst 1/> body re Taurus Jenniferuassaly MD Work Phone: Start: 02-01-2024 CREATININE BLD Taurus uribe MD Work Phone: Start: 01-12-2024 Urnls dip stick/tabl et rgnt auto w/o microscopy Taurus Ballard MD Work Phone: Start: 10-11-2023 End: 06-24-2024 H/O: hysterectomy History of hysterectomy Agusto Olmstead CORN CUTTER OPERATOR Work Phone: Start: 06-22-2023 Laparoscopic partial nephrectomy of left kidney HEIDY ARNOLD Start: 05-22-2023 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 Lisa Porras Start: 12-28-2022 Mammography Agusto Leticia hills CORN CUTTER OPERATOR Work Phone: Start: 06-16-2022 Microscopic examinat ion of blood, culture WEB METHODS DEVELOPER AGUSTO AYSHA Comment on above: Performed By: #### B [email or web address] ####[facility] [address] [place], [place] [address]Dr. Ricardo Aj Start: 06-13-2022 Detachment at Left F oot, Partial 1st Ray, Open Approach KIARA AGUSTO AYSHA Start: 06-13-2022 Microscopic examinat ion of blood, culture KIARA AGUSTO AYSHA Comment on above: Performed By: #### B [email or web address] ####[facility] [address] [place], [place] [id number]. Ricardo Rocha Start: 06-11-2022 Detachment at Left [...] Treatment Date Care Activity Detail Author Start: 10-02-2026 Glaucoma screening Diabetes: Retinopathy Screening [facility] Start: 04-28-2026 Screening for malignant neoplasm of colon [facility] Start: 01-08-2026 Adult BMI Screening Adult BMI Screening [facility] Start: 01-08-2026 Tobacco Screening Tobacco Screening [facility] Start: 12-25-2025 Glaucoma screening Diabetes: Retinopathy Screening [facility] Start: 11-18-2025 Medicare Annual Wellness (AWV) Medicare Annual Wellness (AWV) [facility] Start: 11-07-2025 Glaucoma screening Diabetes: Retinopathy Screening [facility] Start: 10-24-2025 Medicare Annual Wellness (AWV) Medicare Annual Wellness (AWV) [facility] Start: 10-09-2025 Tobacco Screening Tobacco Screening [facility] Start: 08-28-2025 Urine screening for protein Diabetes: Urine Protein Screening [facility] Start: 07-03-2025 Adult BMI Screening Adult BMI Screening [facility] Start: 07-03-2025 Tobacco Screening Tobacco Screening [facility] Start: 04-21-2025 Influenza vaccination Influenza Vaccine [facility] Start: 04-17-2025 Screening for malignant neoplasm of breast [facility] Start: 02-26-2025 End: 02-26-2025 Patient encounter procedure 02/26/2025 11:15 AM EDT Office Visit [facility] [address] [place] [phone] Sweta Ch, PAJuan JoseC [address] [place] [address] [facility] Start: 02-18-2025 End: 02-18-2025 Patient encounter procedure 02/18/2025 1:40 PM EDT Office Visit [facility] [address] [place] [address] Agusto Olmstead NP [address] [place] [address] [facility] Start: 02-17-2025 Hemoglobin A1c measurement Diabetes: Hemoglobin A1C [facility] Start: 02-07-2025 End: 02-07-2025 Admission to same day surgery center 02/07/2025 12:30 PM EDT - 02/07/2025 12:39 PM EDT Surgery [facility] - [facility] Procedures [address] [place] [phone] Zackery Miranda MD [address] [place] [address] INJECTION BLOCK NERVE STELLATE GANGLION NECK [87665 (CPT )] [facility] Comment on above: INJECTION BLOCK NERVE STELLATE GANGLION NECK [43372 (CPT )] Start: 02-07-2025 End: 02-07-2025 Njx anes stellate ganglion crv sympathetic INJECTION BLOCK NERVE STELLATE GANGLION NECK Reflex sympathetic dystrophy of right upper extremity 02/07/2025 12:30 PM EDT [facility] Start: 02-07-2025 Subsequent hospital visit by physician 02/07/2025 12:30 PM EDT Hospital Encounter [facility] - Pain Procedures [address] [place] [phone] Zackery Miranda MD [address] [facility] [place] [address] [facility] - [facility] Procedures Start: 01-31-2025 Creatinine measurement Serum Creatinine [facility] Start: 01-27-2025 End: 01-27-2025 Patient encounter procedure 01/27/2025 2:40 PM EDT Office Visit [facility] [address] [place] [address] Agusto Olmstead NP [address] [place] [address] Arrived [facility] Comment on above: Arrived Start: 01-27-2025 End: 01-27-2026 25-hydroxyvitamin D3 [Mass/volume] in Serum or Plasma Vitamin D 25 hydroxy Lab Routine Chronic kidney disease, stage 4 (severe) ([facility]/HCC) Vitamin D deficiency Expected: 01/27/2025 (Approximate), Expires: 01/27/2026 [facility] Comment on above: Expected: 01/27/2025 (Approximate), Expi res: 01/27/2026 Start: 01-27-2025 End: 01-27-2026 Bacteria identified in Urine by Culture Urine culture (clean catch) Microbiology Routine Urinary tract infection symptoms Expected: 01/27/2025 (Approximate), Expires: 01/27/2026 [facility] Work Phone: Comment on above: Expected: 01/27/2025 (Approximate), Expi res: 01/27/2026 Start: 01-27-2025 End: 01-27-2026 Basic metabolic 1998 panel - Serum or Plasma Basic metabolic panel Lab Routine Mixed hyperlipidemia ([facility]) Essential (primary) hypertension ([facility]) Type 2 diabetes mellitus with diabetic neuropathy, with long-term current use of insulin ([facility]) Chronic kidney disease, stage 4 (severe) ([facility]/HCC) 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 Type 2 diabetes mellitus with hyperglycemia, with long-term current use of insulin ([facility]) Vitamin D deficiency Expected: 01/27/2025 (Approximate), Expires: 01/27/2026 [facility] Comment on above: Expected: 01/27/2025 (Approximate), Expi res: 01/27/2026 Start: 01-27-2025 End: 01-27-2026 CBC W Auto Differential panel - Blood CBC and differential Lab Routine Chronic kidney disease, stage 4 (severe) (CMS/HCC) Type 2 diabetes mellitus with hyperglycemia, with long-term current use of insulin (CMS/HCC) Fatigue, unspecified type Expected: 01/27/2025 (Approximate), Expires: 01/27/2026 [facility] Comment on above: Expected: 01/27/2025 (Approximate), Expi res: 01/27/2026 Start: 01-27-2025 End: 01-27-2026 Cobalamin (Vitamin B12) [Mass/volume] in Serum or Plasma Vitamin B12 Lab Routine Fatigue, unspecified type Expected: 01/27/2025 (Approximate), Expires: 01/27/2026 [facility] Comment on above: Expected: 01/27/2025 (Approximate), Expi res: 01/27/2026 Start: 01-27-2025 End: 01-27-2026 Ferritin [Mass/volume] in Serum or Plasma Ferritin Lab Routine Fatigue, unspecified type Expected: 01/27/2025 (Approximate), Expires: 01/27/2026 [facility] Comment on above: Expected: 01/27/2025 (Approximate), Expi res: 01/27/2026 Start: 01-27-2025 End: 01-27-2026 Folate [Mass/volume] in Serum or Plasma Folate Lab Routine Fatigue, unspecified type Expected: 01/27/2025 (Approximate), Expires: 01/27/2026 [facility] Comment on above: Expected: 01/27/2025 (Approximate), Expi res: 01/27/2026 Start: 01-27-2025 End: 01-27-2026 Hepatic function 2000 panel - Serum or Plasma Hepatic function panel Lab Routine Essential (primary) hypertension (CMS/HCC) Chronic kidney disease, stage 4 (severe) (CMS/HCC) Fatigue, unspecified type Expected: 01/27/2025 (Approximate), Expires: 01/27/2026 [facility] Comment on above: Expected: 01/27/2025 (Approximate), Expi res: 01/27/2026 Start: 01-27-2025 End: 01-27-2026 Iron + transferrin + TIBC Iron + transferrin + TIBC Lab Routine Fatigue, unspecified type Expected: 01/27/2025 (Approximate), Expires: 01/27/2026 [facility] Comment on above: Expected: 01/27/2025 (Approximate), Expi res: 01/27/2026 Start: 01-27-2025 End: 01-27-2026 Magnesium [Mass/volume] in Serum or Plasma Magnesium Lab Routine Chronic kidney disease, stage 4 (severe) ([facility]) Expected: 01/27/2025 (Approximate), Expires: 01/27/2026 [facility] Comment on above: Expected: 01/27/2025 (Approximate), Expi res: 01/27/2026 Start: 01-27-2025 End: 01-27-2026 Phosphate [Moles/volume] in Serum or Plasma Phosphorus Lab Routine Chronic kidney disease, stage 4 (severe) ([facility]) Expected: 01/27/2025 (Approximate), Expires: 01/27/2026 [facility] Comment on above: Expected: 01/27/2025 (Approximate), Expi res: 01/27/2026 Start: 01-27-2025 End: 01-27-2026 Thyrotropin [Units/volume] in Serum or Plasma TSH Lab Routine Fatigue, unspecified type Expected: 01/27/2025 (Approximate), Expires: 01/27/2026 [facility] Comment on above: Expected: 01/27/2025 (Approximate), Expi res: 01/27/2026 Start: 01-27-2025 End: 01-27-2026 Thyroxine (T4) free [Mass/volume] in Serum or Plasma T4, free Lab Routine Fatigue, unspecified type Expected: 01/27/2025 (Approximate), Expires: 01/27/2026 [facility] Comment on above: Expected: 01/27/2025 (Approximate), Expi res: 01/27/2026 Start: 01-21-2025 End: 01-21-2025 Patient encounter procedure 01/21/2025 2:40 PM EDT Office Visit [facility] [address] [place] [address] Agusto Olmstead NP [address] [place] [address] [facility] Start: 01-10-2025 Pneumococcal Vaccine: 65+ Years (1 of 2 - PCV) Pneumococcal Vaccine: 65+ Years (1 of 2 - PCV) [facility] Comment on above: Postponed from 1964 (Patient Refus ed) Postponed from 05/12 (Patient Refused) Start: 01-08-2025 End: 01-08-2025 Patient encounter procedure 01/08/2025 12:15 PM EDT Office Visit [facility] [address] [place] [address] Sweta Ch PA-C [address] [facility] [place], [place] [id number] [facility] Start: 12-12-2024 End: 12-12-2024 Patient encounter procedure 12/12/2024 3:20 PM EDT Office Visit [facility] [address] [place] [address] Agusto Olmstead, CORN CUTTER OPERATOR [address] [place] [address] [facility] Start: 12-05-2024 End: 12-05-2024 Patient encounter procedure 12/05/2024 1:00 PM EDT Office Visit [facility] [address] [facility] [address] [place] [phone] Cory Angeles DPM [address] [facility] [address] [place] [address] [facility] Start: 12-04-2024 End: 12-04-2025 Basic metabolic 1998 panel - Serum or Plasma Basic metabolic panel Lab Routine Chronic kidney disease, stage 4 (severe) (CMS/HCC) Expected: 12/04/2024 (Approximate), Expires: 12/04/2025 [facility] Work Phone: Comment on above: Expected: 12/04/2024 (Approximate), Expi res: 12/04/2025 Start: 12-04-2024 End: 12-04-2025 CBC W Auto Differential panel - Blood CBC and differential Lab Routine Chronic kidney disease, stage 4 (severe) (CMS/HCC) Expected: 12/04/2024 (Approximate), Ex[facility]: [facility] Comment on above: Expected: 12/04/2024 (Approximate), Expi res: 12/04/2025 Start: 12-04-2024 End: 12-04-2024 Patient encounter procedure 12/04/2024 11:00 AM EDT Office Visit [facility] [address] [place] [phone] Agusto Olmstead NP [address] [place] [address] Chronic kidney disease, stage 4 (severe) (CMS/HCC) (Primary Dx); Essential (primary) hypertension (CMS/HCC) [facility] Comment on above: Chronic kidney disease, stage 4 (severe) (CMS/HCC) (Primary Dx); Essential (primary) hypertension (CMS/HCC) Start: 11-26-2024 [facility] Start: 11-24-2024 Comprehensive metabolic 2000 panel - Serum or Plasma [facility] Start: 11-24-2024 End: 11-24-2024 [facility] Start: 11-23-2024 [facility] Start: 11-23-2024 Referral to area captain [facility] Start: 11-23-2024 Physical therapy procedure [facility] Start: 11-23-2024 Referral to occupational therapist [facility] Start: 11-23-2024 Referral to manager study [facility] Start: 11-23-2024 Referral to rail car repairman [facility] Start: 11-23-2024 X-ray of right foot XR foot RT 2V [facility] Start: 11-23-2024 XR Foot - right 2 Views [facility] Start: 11-23-2024 Hospital admission [facility] Start: 11-23-2024 Urine culture [facility] Start: 11-23-2024 Bacteria identified in Urine by Culture Urine Culture [facility] Start: 11-18-2024 End: 11-18-2025 Basic metabolic 1998 panel - Serum or Plasma Basic metabolic panel Lab Routine Essential (primary) hypertension ([facility]/HCC) Chronic kidney disease, stage 4 (severe) ([facility]) Type 2 diabetes mellitus with hyperglycemia, with long-term current use of insulin ([facility]) Expected: 11/18/2024 (Approximate), Expires: 11/18/2025 [facility] Work Phone: Comment on above: Expected: 11/18/2024 (Approximate), Expi res: 11/18/2025 Start: 11-18-2024 End: 11-18-2025 CBC W Auto Differential panel - Blood CBC and differential Lab Routine Chronic kidney disease, stage 4 (severe) ([facility]/HCC) Expected: 11/18/2024 (Approximate), Expires: 11/18/2025 [facility] Comment on above: Expected: 11/18/2024 (Approximate), Expi res: 11/18/2025 Start: 11-18-2024 End: 11-18-2025 Iron and Iron binding capacity panel - Serum or Plasma Iron level Lab Routine Chronic kidney disease, stage 4 (severe) (CMS/HCC) Expected: 11/18/2024 (Approximate), Expires: 11/18/2025 [facility] Comment on above: Expected: 11/18/2024 (Approximate), Expi res: 11/18/2025 Start: 11-18-2024 End: 11-18-2024 Patient encounter procedure [facility] Comment on above: RSD (reflex sympathetic dystrophy) (Prim hussain Dx); Type 2 diabetes mellitus with diabetic neuropathy, with long-term current use of insulin ([facility]); Essential (primary) hypertension ([facility]/HCC); Chronic kidney disease, stage 4 (severe) ([facility]) ; Type 2 diabetes mellitus with hyperglycemia, with long-term current use of insulin ([facility]); FPC (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 ([facility]); Non compliance w medication regimen; Encounter for subsequent annual wellness visit (AWV) in Medicare patient Start: 11-11-2024 End: 11-11-2025 XR Foot - right 3 Views XR foot 3+ views right Imaging Routine Right foot pain Expected: 11/11/2024 (Approximate), Expires: 11/11/2025 [facility] Work Phone: Comment on above: Expected: 11/11/2024 (Approximate), Expi res: 11/11/2025 Start: 11-06-2024 Hemoglobin A1c measurement Diabetes: Hemoglobin A1C [facility] Start: 11-06-2024 End: 11-06-2024 Patient encounter procedure 11/06/2024 10:30 AM EDT Office Visit [facility] [address] [place] [address] Agusto Olmstead, LUIS [address] [place] [address] [facility] Start: 10-24-2024 End: 10-24-2024 Patient encounter procedure 10/24/2024 2:20 PM EST Office Visit [facility] [address] [place] [address] Agusto Olmstead, CORN CUTTER OPERATOR [address] [place] [phone] Type 2 diabetes mellitus with diabetic neuropathy, with long-term current use of insulin ([facility]) (Primary Dx); Essential (primary) hypertension (CMS/HCC); Chronic kidney disease, stage 4 (severe) (CMS/HCC); Type 2 diabetes mellitus with hyperglycemia, with long-term current use of insulin ([facility]/HCC) [facility] Comment on above: Type 2 diabetes mellitus with diabetic n europathy, with long-term current use of insulin (CMS/HCC) (Primary Dx); Essential (primary) hypertension (CMS/HCC); Chronic kidney disease, stage 4 (severe) (CMS/HCC); Type 2 diabetes mellitus with hyperglycemia, with long-term current use of insulin (CMS/HCC) Start: 10-23-2024 End: 10-23-2024 Patient encounter procedure 10/23/2024 2:00 PM EST Office Visit [facility] [address] [place] [address] Agusto Olmstead NP [address] [place] [address] [facility] Start: 10-23-2024 Urine screening for protein Diabetes: Urine Protein Screening [facility] Start: 10-11-2024 Medicare Annual Wellness (AWV) Medicare Annual Wellness (AWV) [facility] Start: 10-09-2024 End: 10-09-2024 Patient encounter procedure 10/09/2024 11:15 AM EST Office Visit [facility] [address] [place] [phone] Sweta Ch PA-C [address] [place] [address] [facility] Start: 09-15-2024 [facility] Start: 09-14-2024 [facility] Start: 09-13-2024 [facility] Start: 09-12-2024 [facility] Start: 09-11-2024 End: 09-11-2024 Patient encounter procedure [facility] Comment on above: Malignant neoplasm of cervix uteri, unsp ecified ([facility]) (Primary Dx); Rheumatoid arthritis, unspecified (CMS/[facility]); Type 2 diabetes mellitus with diabetic neuropathy, with long-term current use of insulin (CMS/[facility]); Essential (primary) hypertension (CMS/HCC); Chronic kidney disease, stage 4 (severe) ([facility]); Neurogenic bladder; Type 2 diabetes mellitus with hyperglycemia, with long-term current use of insulin ([facility]); Immunodeficiency due to conditions classified elsewhere ([facility]); FPC (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 ([facility]) Start: 09-11-2024 [facility] Start: 09-10-2024 [facility] Start: 09-09-2024 Comprehensive metabolic 1999 panel - Serum or Plasma [facility] Start: 09-09-2024 [facility] Start: 09-08-2024 Comprehensive metabolic 1999 panel - Serum or Plasma [facility] Start: 09-08-2024 End: 09-08-2024 [facility] Start: 09-07-2024 Referral to urologist [facility] Start: 09-07-2024 Comprehensive metabolic 1999 panel - Serum or Plasma [facility] Start: 09-07-2024 [facility] Start: 09-06-2024 [facility] Start: 09-05-2024 Hospital admission [facility] Start: 09-05-2024 Referral to rail car repairman [facility] Start: 09-05-2024 [facility] Start: 09-05-2024 Urine culture [facility] Start: 09-05-2024 Bacteria identified in Urine by Culture Urine Culture [facility] Start: 09-03-2024 Complete blood count Hemoglobin/Hematocrit [facility] Start: 09-03-2024 Creatinine measurement Serum Creatinine [facility] Start: 08-27-2024 End: 08-27-2024 Patient encounter procedure 08/27/2024 2:20 PM EST Office Visit [facility] [address] [place] [address] Agusto Olmstead, LUIS [address] [place] [phone] Arrived [facility] Comment on above: Arrived Start: 08-27-2024 End: 08-27-2025 Basic metabolic 1997 panel - Serum or Plasma Basic metabolic panel Lab Routine Type 2 diabetes mellitus with diabetic neuropathy, with long-term current use of insulin ([facility]) Expected: 08/27/2024 (Approximate), Expires: 08/27/2025 [facility] Work Phone: Comment on above: Expected: 08/27/2024 (Approximate), Expi res: 08/27/2025 Start: 08-27-2024 End: 08-27-2024 Patient encounter procedure 08/27/2024 11:30 AM EST Office Visit [facility] [address] [place] [address] Agusto Olmstead, CORN CUTTER OPERATOR [address] [place] [address] [facility] Start: 06-24-2024 End: 06-24-2024 Patient encounter procedure 06/24/2024 11:00 AM EST [facility] [address] [place] [address] Agusto Olmstead, CORN CUTTER OPERATOR [address] [place] [phone] [facility] Start: 06-23-2024 Hemoglobin/Hematocrit Hemoglobin/Hematocrit [facility] Start: 06-23-2024 Serum Creatinine Serum Creatinine [facility] Start: 06-11-2024 End: 06-11-2025 Basic metabolic 1998 panel - Serum or Plasma Basic metabolic panel Lab Routine Type 2 diabetes mellitus with hyperglycemia, with long-term current use of insulin ([facility]) Expected: 06/11/2024 (Approximate), Expires: 06/11/2025 [facility] Work Phone: Comment on above: Expected: 06/11/2024 (Approximate), Expi res: 06/11/2025 Start: 06-11-2024 End: 06-11-2025 Hemoglobin A1c/Hemoglobin.total in Blood Hemoglobin A1c Lab Routine Type 2 diabetes mellitus with hyperglycemia, with long-term current use of insulin ([facility]) Expected: 06/11/2024 (Approximate), Expires: 06/11/2025 [facility] Comment on above: Expected: 06/11/2024 (Approximate), Expi res: 06/11/2025 Start: 06-11-2024 End: 06-11-2024 Patient encounter procedure 06/11/2024 11:30 AM EDT [facility] [address] [place] [address] Agusto Olmstead NP [address] [place] [phone] Type 2 diabetes mellitus with diabetic chronic kidney disease (CMS/HCC); Chronic kidney disease, stage 3b (HCC) (CMS/HCC); Hyperparathyroidism, unspecified (CMS/HCC); Malignant neoplasm of cervix uteri, unspecified (CMS/HCC); Rheumatoid arthritis, unspecified ([facility] [facility] Comment on above: Type 2 diabetes mellitus with diabetic c hronic kidney disease (CMS/HCC); Chronic kidney disease, stage 3b (HCC) (CMS/HCC); Hyperparathyroidism, unspecified (CMS/HCC); Malignant neoplasm of cervix uteri, unspecified (CMS/HCC); Rheumatoid arthritis, unspecified ([facility]/HCC) Start: 06-06-2024 Hemoglobin/Hematocrit Hemoglobin/Hematocrit [facility] Start: 06-06-2024 Serum Creatinine Serum Creatinine [facility] Start: 06-04-2024 Hemoglobin A1c measurement Diabetes: Hemoglobin A1C [facility] Start: 05-28-2024 End: 05-28-2024 Patient encounter procedure 05/28/2024 1:20 PM EDT Office Visit [facility] [address] [place] [address] Agusto Olmstead NP [address] [place] [address] [facility] Start: 05-10-2024 End: 05-10-2024 ambulatory 05/10/2024 11:30 AM EDT [facility] [address] [address] Juanito Barnard MD [address] [place] [address] add on per staff message Urology Comment on above: add on per staff message Start: 05-01-2024 End: 07-31-2024 Basic metabolic 2000 panel - Serum or Plasma BASIC METABOLIC PANEL Lab Routine Stage 3b chronic kidney disease (HCC) Expected: 05/01/2024, Expires: 07/31/2024 [facility] Work Phone: Comment on above: Expected: 05/01/2024, Expires: 4 Start: 05-01-2024 End: 07-31-2024 CYSTATIN C CYSTATIN C Lab Routine Stage 3b chronic kidney disease (HCC) Expected: 05/01/2024, Expires: 07/31/2024 [facility] Comment on above: Expected: 05/01/2024, Expires: Start: 05-01-2024 End: 05-01-2024 Patient encounter procedure 05/01/2024 10:00 AM EDT Office Visit Urology [address] [address] Juanito Barnard MD [address] [place] [address] discuss bladder augment per Dr. Espinosa Urology Comment on above: discuss bladder augment per Dr. Espinosa Start: 04-21-2024 Covid-19 Vaccine ( season) Covid-19 Vaccine ( season) [facility] Start: 04-21-2024 Covid-19 Vaccine ( season) Covid-19 Vaccine () [facility] Start: 04-21-2024 Influenza vaccination [facility] Start: 04-16-2024 End: 04-16-2024 Patient encounter procedure 04/16/2024 2:20 PM EDT Office Visit [facility] [address] [place] [id number] Agusto Olmstead NP [address] [place] [address] Type 2 diabetes mellitus with diabetic chronic kidney disease (HCC) ([facility]/HCC); Chronic kidney disease, stage 3b (HCC) (CMS/HCC); Hyperparathyroidism, unspecified (CMS/HCC); Rheumatoid arthritis, unspecified (CMS/HCC); Malignant neoplasm of cervix uteri, unspecified (CMS/HCC) [facility] Comment on above: Type 2 diabetes mellitus with diabetic c hronic kidney disease (HCC) (CMS/HCC); Chronic kidney disease, stage 3b (HCC) (CMS/HCC); Hyperparathyroidism, unspecified (CMS/HCC); Rheumatoid arthritis, unspecified (CMS/HCC); Malignant neoplasm of cervix uteri, unspecified (CMS/HCC) Start: 04-16-2024 End: 04-16-2025 XR Chest 2 Views XR chest 2 views Imaging Routine Chronic cough Expected: 04/16/2024 (Approximate), Expires: 04/16/2025 [facility] Work Phone: Comment on above: Expected: 04/16/2024 (Approximate), Expi res: 04/16/2025 Start: 04-09-2024 End: 04-09-2024 Follow-up encounter 04/09/2024 9:30 AM EDT [facility] [address] [place] [address] Carmenza Espinosa MD [address] [place] [address] 1 week follow up per dr. espinosa Urology Comment on above: 1 week follow up per dr. espinosa Start: 04-04-2024 Hepatitis B screening Urine Albumin:Creatinine Ratio [facility] Start: 03-29-2024 End: 03-29-2024 Nursing evaluation of patient and report 03/29/2024 3:00 PM EDT Nurse Visit Urology [address] [address] [employer] [address] [place] [address] [R33.9] Retention of urine Urology Comment on above: [R33.9] Retention of urine Start: 03-26-2024 End: 03-26-2024 Patient encounter procedure 03/26/2024 11:00 AM EDT Office Visit Urology [address] [place] [address] Carmenza Espinosa MD [address] [place], [place] [id number] Follow up per Dr. Ballard Urology Comment on above: Follow up per Dr. 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 encounter procedure [employer] [facility] Comment on above: Continuous leakage of Urine Start: 01-22-2024 DIABETES SCREEN DIABETES SCREEN [facility] Start: 01-19-2024 End: 04-19-2024 CREATININE BLD CREATININE BLD Lab Routine Other hydronephrosis Expected: 01/19/2024 (Approximate), Expires: 04/19/2024 [facility] Comment on above: Expected: 01/19/2024 (Approximate), Expi res: 04/19/2024 Start: 01-19-2024 End: 02-10-2025 CT Kidney WO and W contrast IV CT UROGRAM WO/W IVCON Radiology Routine Other hydronephrosis Expected: 01/19/2024 (Approximate), Expires: 02/10/2025 [facility] Work Phone: Comment on above: Expected: 01/19/2024 (Approximate), Expi res: 02/10/2025 Start: 12-29-2023 Screening for malignant neoplasm of breast Mammogram [facility] Start: 10-05-2023 End: 01-04-2024 Basic metabolic 2000 panel - Serum or Plasma BASIC METABOLIC PNL Lab Routine Kidney cyst, acquired Expected: 10/05/2023 (Approximate), Expires: 01/04/2024 [facility] Work Phone: Comment on above: Expected: 10/05/2023 (Approximate), Expi res: 01/04/2024 Start: 10-05-2023 End: 08-03-2024 US KIDNEY/BLADDER US KIDNEY/BLADDER Radiology Routine Kidney cyst, acquired Expected: 10/05/2023 (Approximate), Expires: 08/03/2024 [facility] Work Phone: Comment on above: Expected: 10/05/2023 (Approximate), Expi res: 08/03/2024 Start: 09-06-2023 Hemoglobin A1c measurement HbA1C [facility] Start: 09-06-2023 Hemoglobin A1c/Hemoglobin.total in Blood HbA1C [facility] Start: 08-21-2023 Advance Directive Discussion Advance Directive Discussion [facility] Start: 08-21-2023 Behavioral Health Screening Behavioral Health Screening [facility] Start: 08-21-2023 Depression Assessment Depression Assessment [facility] Start: 2023 Advance Directive Discussion Advance Directive Discussion [facility] Start: 2023 Bone Density Screening Bone Density Screening [facility] Start: 2023 Fall Risk Screening Fall Risk Screening [facility] Start: 2023 Screening for osteoporosis Bone Density Screening [facility] Start: 04-21-2023 Covid-19 Vaccine ( season) Covid-19 Vaccine ( season) [facility] Start: 04-21-2023 Covid-19 Vaccine ( season) Covid-19 Vaccine ( season) [facility] Start: 04-21-2023 Influenza vaccination Influenza Vaccine (#1) [facility] Start: 08-21-2022 Depression Assessment Depression Assessment [facility] Start: 04-21-2021 Influenza vaccination INFLUENZA (Season Ended) [facility] hola Start: 2018 Hepatitis B Vaccine (1 of 3 - Risk 3-dose series) Hepatitis B Vaccine (1 of 3 - Risk 3-dose series) [facility] Start: 2018 RSV Vaccine (1 - 1-dose 60+ series) RSV Vaccine (1 - 1-dose 60+ series) [facility] Start: 2018 RSV Vaccine (1 - Risk 60-74 years 1-dose series) RSV Vaccine (1 - Risk 60-74 years 1-dose series) [facility] Start: 2008 Administration of varicella zoster vaccine Zoster (Shingles) Vaccine (1 of 2) [facility] Start: 2008 Screening for malignant neoplasm of colon [facility] Start: 2008 SHINGRIX VACCINE (1 of 2) SHINGRIX VACCINE (1 of 2) [facility] Start: 09-22-2003 Cologuard (FIT-DNA) Cologuard (FIT-DNA) [facility] Start: 2003 Colonoscopy Colonoscopy [facility] Start: 2003 Colorectal Cancer Screening Colorectal Cancer Screening [facility] Start: [address] Colonography [facility] Start: 2003 Fecal Occult Blood Fecal Occult Blood [facility] Start: 2003 LIPID SCREEN LIPID SCREEN [facility] Start: 2003 Screening for malignant neoplasm of colon [facility] Start: 2003 Sigmoidoscopy Sigmoidoscopy [facility] Start: 1998 Mammography [facility] Start: 1998 Screening for malignant neoplasm of breast Mammogram Screening [facility] Start: 1988 HPV TESTING HPV TESTING [facility] Start: 1979 PAP TESTING PAP TESTING [facility] Start: 1977 DTaP,Tdap and Td Vaccines (1 - Tdap) DTaP,Tdap and Td Vaccines (1 - Tdap) [facility] Start: 1977 Pneumococcal Vaccine: 65+ Years (1 of 2 - PCV) Pneumococcal Vaccine: 65+ Years (1 of 2 - PCV) [facility] Start: 1977 Urine microalbumin profile [facility] Start: 1976 Adult BMI Follow Up Plan Adult BMI Follow Up Plan [facility] Start: 1976 Annual PCP Team Chronic Disease Visit Annual PCP Team Chronic Disease Visit [facility] Start: 1976 Anxiety Screening Anxiety Screening [facility] Start: 1976 BP Controlled (<130/80) BP Controlled (<130/80) [facility] Start: 1976 Depression Screening Depression Screening [facility] Start: 1976 Hepatitis B surface antibody level LDL Cholesterol [facility] Start: 1976 HEPATITIS C SCREENING HEPATITIS C SCREENING [facility] Start: 1976 Hepatitis C screening Hepatitis C Screening [facility] Start: 1976 HIV SCREENING HIV SCREENING [facility] Start: 1976 HIV screening HIV Screening [facility] Start: 1976 Spirometry Spirometry [facility] Start: 1970 Adult depression screening assessment DEPRESSION SCREENING [facility] Start: 1970 COVID-19 VACCINE (1) COVID-19 VACCINE (1) [facility] Start: 1968 3 comp foot exam completed Diabetic Foot Exam [facility] Start: 1968 Diabetic foot examination Diabetic Foot Exam [facility] Start: 1968 Glaucoma screening [facility] Start: 1968 Hepatitis B screening Urine Albumin:Creatinine Ratio [facility] Start: 1968 Hepatitis C antibody, confirmatory test Dilated Retinal Exam [facility] Start: 1964 Pneumococcal Vaccine: 65+ (1 - PCV) Pneumococcal Vaccine: 65+ (1 - PCV) [facility] Start: 1964 Pneumococcal Vaccine: 65+ (1 of 2 - PCV) Pneumococcal Vaccine: 65+ (1 of 2 - PCV) [facility] Start: 1958 Screening for malignant neoplasm of colon [facility] Albumin/Globulin ratio [facility] Anion gap measurement [facility] Anion gap measurement [facility] Bacteria identified in Urine by Culture URINE CULTURE, ROUTINE Lab Routine 09/04/2024 6:30 PM EST [facility] Basophils [#/volume] in Blood by Automated count [facility] Basophils/100 leukoc ytes in Blood by Automated count [facility] Eosinophils/100 leukocytes in Blood by Automated count [facility] Erythrocyte distribu tion width [Ratio] by Automated count [facility] Erythrocytes [#/volu me] in Blood [facility] FLUROURODYNAMICS WITH EMG FLUROU RODYNAMICS WITH EMG Procedures Routine Retention of urine BURKE (stress urinary incontinence, female) Ordered: 03/26/2024 [facility] Work Phone: Comment on above: Ordered: 03/26/2024 Globulin [Mass/volum e] in Serum [facility] Hematocrit [Volume Fraction] of Blood [facility] Hemoglobin [Mass/vol ume] in Blood [facility] Leukocytes [#/volume ] corrected for nucleated erythrocytes in Blood by Automated coun [facility] Leukocytes [#/volume ] in Blood [facility] Lymphocytes [#/volum e] in Blood by Automated count [facility] Lymphocytes/100 leukocytes in Blood by Automated count [facility] MCH [Entitic mass] b y Automated count [facility] MCHC [Mass/volume] b y Automated count [facility] MCV [Entitic volume] by Automated count [facility] Monocytes [#/volume] in Blood by Automated count [facility] Monocytes/100 leukoc ytes in Blood by Automated count [facility] Neutrophils [#/volum e] in Blood by Automated count [facility] Neutrophils/100 leukocytes in Blood by Automated count [facility] Njx anes stellate ganglion crv sympathetic INJECTION BLOCK NERVE STELLATE GANGLION NECK Reflex sympathetic dystrophy of right upper extremity [place] [facility] Nucleated erythrocyt es [Presence] in Blood by Automated count [facility] Patient Education Know your Meds [facility] Work Phone: Patient referral [facility] Work Phone: Platelet mean volume [Entitic volume] in Blood by Automated count [facility] Platelets [#/volume] in Blood [facility] Renal function 1999 panel - Serum or Plasma [facility] Renal function 1999 panel - Serum or Plasma [facility] Immunizations Immunization Date Immunization Notes Care Provider Lukas [facility] 06-23-2022 tuberculin skin test ; purified protein derivative solution, intradermal Agusto Cainz [employer]TER OPERATOR Work Phone: [facility] 06-16-2022 tuberculin skin test ; purified protein derivative solution, intradermal Agusto Aichholz [employer]TER OPERATOR Work Phone: [facility] 04-02-2021 SARS-CoV-2 (COVID-19 ) mRNA-1273 vaccine HEIDY ARNOLD [facility] 03-02-2021 Moderna SARS-CoV-2 Vaccination Agusto Ducholz [employer]PERATOR Work Phone: [facility] 12-07-2020 SARS-CoV-2 (COVID-19 ) mRNA-1273 vaccine HEIDY ARNOLD [facility] 06-03-2016 influenza virus vaccine, unspecified formulation HEIDY ARNOLD [facility] 06-03-2016 influenza, seasonal, injectable, preservative free Drew Esqueda Research Coordinator [facility] Payers Date Payer Category Payer Self-pay 2023 Medicare HMO [employer] MEDICARE [id number] 2023 Medicare (Managed Care) [facility] Member Subscriber Plan / Payer (Effective 2023-Present) Name: Aislinn Wheeler Relation to Subscriber: Self Name: Aislinn Wheeler Payer ID: [id number] (NAIC) Type: Not on file Address: [place] [id number] 2023 Private Health Insurance [id number] 2022 Medicare [id number] 2022 Medicare [id number] 2006 Medicare MEDICARE MEDICAR E A [id number] 2006-Present [place], [place] Medicare [id number] 2003 Worker's Comp Other Managed Care [facility] [id number] 2003 Unknown [id number] 1959 Medicare [id number] 2.16.840.1.235710.19 1959 Medicare [id number] 1959 Unknown [id number] 1959 Unknown [id number] 1958 Unknown [id number] 2.16.840.1.184480.3.579.2 .593 1958 Unknown [id number] 2.16.840.1.143901.3.579.2 .593 1958 Unknown [id number] 2.16.840.1.078943.3.579.2 .593 1958 Unknown [id number] 2.16.840.1.909046.3.579.2 .593 1958 Unknown [id number] 2.16.840.1.229196.3.579.2 .593 1958 Unknown [id number] 2.16.840.1.203047.3.579.2 .593 1958 Unknown [id number] 2.16.840.1.489555.3.579.2 .593 1958 Unknown [id number] 2.16.840.1.873449.3.579.2 .593 1958 Unknown [id number] 2.16.840.1.094576.3.579.2 .593 1958 Unknown [id number] 2.16.840.1.902147.3.579.2 .593 1958 Unknown [id number] 2.16.840.1.879999.3.579.2 .593 1958 Unknown [id number] 2.16.840.1.181000.3.579.2 .593 1958 Unknown [id number] 2.16.840.1.933999.3.579.2 .593 1958 Unknown [id number] 2.16.840.1.972502.3.579.2 .593 1958 Unknown [id number] 2.16.840.1.188714.3.579.2 .593 1958 Unknown [id number] 2.16.840.1.489721.3.579.2 .593 1958 Unknown [id number] 2.16.840.1.060210.3.579.2 .593 1958 Unknown [id number] 2.16.840.1.558961.3.579.2 .593 1958 Unknown [id number] 2.16.840.1.626978.3.579.2 .593 1958 Unknown [id number] 2.16.840.1.940798.3.579.2 .593 1958 Unknown [id number] 2.16.840.1.771258.3.579.2 .593 1958 Unknown [id number] 2.16.840.1.647221.3.579.2 .593 1958 Unknown [id number] 2.16.840.1.072687.3.579.2 .593 1958 Unknown [id number] 2.16.840.1.761631.3.579.2 .593 1958 Unknown [id number] 2.16.840.1.863793.3.579.2 .593 1958 Unknown [id number] 2.16.840.1.185862.3.579.2 .593 1958 Unknown [id number] 2.16.840.1.891422.3.579.2 .593 1958 Unknown [id number] 2.16.840.1.358560.3.579.2 .593 1958 Unknown [id number] 2.16.840.1.588195.3.579.2 .593 1958 Unknown [id number] 2.16.840.1.743348.3.579.2 .593 1958 Unknown [id number] 2.16.840.1.711764.3.579.2 .593 1958 Unknown [id number] 2.16.840.1.375194.3.579.2 .72 1958 Unknown [id number] 2.16.840.1.240655.3.579.2 .72 1958 Unknown [id number] 2.16.840.1.989027.3.579.2 .72 1958 Unknown [id number] 2.16.840.1.035072.3.579.2 .72 1958 Unknown [id number] 2.16.840.1.079143.3.579.2 .72 1958 Unknown [id number] 2.16.840.1.244503.3.579.2 .72 1958 Unknown [id number] 2.16.840.1.392050.3.579.2 .72 1958 Unknown [id number] 2.16.840.1.868081.3.579.2 .72 1958 Unknown [id number] 2.16.840.1.970855.3.579.2 .727 1958 Unknown [id number] 2.16.840.1.542435.3.579.2 .1958 Unknown [id number] 2.16.840.1.691543.3.579.2 .1958 Unknown [id number] 2.16.840.1.501973.3.579.2 .1958 Unknown [id number] 2.16.840.1.275666.3.579.2 .1958 Unknown [id number] 2.16.840.1.063122.3.579.2 .1958 Unknown [id number] 2.16.840.1.559486.3.579.2 .1958 Unknown [id number] 2.16840.1.803239.3.579.2 .1285 1958 Unknown [id number] 2.16840.1.890439.3.579.2 .1285 1958 Unknown [id number] 2.16840.1.037729.3.579.2 .1285 1958 Unknown [id number] 2.16.840.1.217551.3.579.2 .1285 1958 Unknown [id number] 2.16840.1.352918.3.579.2 .1285 1958 Unknown [id number] 2.16.840.1.525056.3.579.2 .1285 1958 Unknown [id number] 2.16.840.1.127144.3.579.2 .1285 1958 Unknown [id number] 2.16.840.1.784731.3.579.2 .1285 1958 Unknown [id number] 2.16.840.1.871856.3.579.2 .1286 1958 Unknown [id number] 2.16.840.1.769495.3.579.2 .1286 1958 Unknown [id number] 2.16.840.1.914095.3.579.2 .9 1958 Unknown [id number] 2.16.840.1.835825.3.579.2 .1258 1958 Unknown [id number] 2.16.840.1.499535.3.579.2 .1258 1958 Unknown [id number] 2.16.840.1.305195.3.579.2 .1258 1958 Unknown [id number] 2.16.840.1.830711.3.579.2 .1258 1958 Unknown [id number] 2.16.840.1.580234.3.579.2 .1258 1958 Unknown [id number] 2.16.840.1.674254.3.579.2 .1258 1958 Unknown [id number] 2.16.840.1.954753.3.579.2 .1258 1958 Unknown [id number] 2.16.840.1.110712.3.579.2 .1259 Unknown [facility] [id number] Unknown [id number] 2.16.840.1.415655.3.579.2 .531 Unknown [id number] 2.16.840.1.241202.3.579.2 .531 Social History Date Type Detail Facility Start: 01-17-2021 End: 10-11-2023 Tobacco smoking status NHIS Never smoker [facility] Start: 01-17-2021 End: 10-11-2023 Tobacco use and exposure Never used [facility] Start: 01-17-2021 End: 04-09-2024 Alcohol intake Current drinker of alcohol (finding) [facility] Start: 01-17-2021 History SDOH Alcohol Frequency 1 [facility] Start: 01-17-2021 Alcohol Comment socially [facility] Start: 1960 Sex Assigned At Not on file [facility] Exposure to SARS-CoV -2 (event) Not sure [facility] Tobacco smoking status Never [facility] Start: 06-06-2023 End: 10-11-2023 Sex Assigned At Female [facility] Start: 06-06-2023 End: 10-11-2023 History of Social function [facility] Start: 06-06-2023 Alcohol Comment rarely--holida y or special occ [facility] (I/We) worried wheth er (my/our) food would run out before (I/we) got money to buy more. DK or Refused [facility] Start: 1960 Sex Assigned At Female [facility] Start: 04-16-2024 End: 01-27-2025 Alcoholic beverage intake Lifetime non-drinker (finding) [facility] [...] Comment caffine: 1cup daily [facility] Start: 07-03-2024 End: 01-08-2025 Alcoholic beverage intake Current non-drinker of alcohol (finding) [facility] Are you now , , , , never or living with a partner? [facility] How hard is it for y ou to pay for the very basics like food, housing, medical care, and heating Not very hard [facility] Start: 03-26-2015 End: 11-26-2024 Sex Female (finding) [facility] Start: 11-25-2024 SDOH Follow up SDOH Follow up [facility] Work Phone: Medical Equipment Procedure Code Equipment Code Equipment Origin al Text Equipment Identifier Dates 4 times daily use [id number] Start: 10-16-2023 End: 10-15-2024 5 injections coleman ly. Use as instructed [id number] Start: 10-29-2024 End: 10-29-2025 Goals Date Patient Goal Desired Activity /State Functional Status Date Assessment Result Facility 11-26-2024 Functional status Patient at Baseline [facility] Work Phone: 09-08-2024 Functional status Patient at Baseline [facility] Work Phone: 09-06-2024 Functional status Patient is Pro gressing Toward Baseline [facility] Work Phone: 10-25-2023 Functional Status N/A [facility] 05-22-2023 Functional Status N/A [facility] 05-11-2023 Functional Status [facility] 02-22-2023 Functional Status N/A [facility] 09-21-2022 Functional Status N/A [facility] 09-13-2022 Functional Status N/A [facility] Mental Status Date Assessment Result Facility 11-26-2024 Cognitive function Cognitive Sta tus Patient at Baseline [facility] Work Phone: 09-08-2024 Cognitive function Cognitive Sta tus Patient at Baseline [facility] Work Phone: 09-06-2024 Cognitive function Cognitive Sta tus Patient is Progressing Toward Baseline [facility] Work Phone: Clinical Notes 01-17-2021 to 01-27-2025 Agusto Olmstead NP - 01/27/2025 5:38 PM Lee Olmstead NP - 01/27/2025 5:36 PM Lee Olmstead NP - 01/27/2025 5:36 PM EDEmil Olmstead NP - 01/27/2025 5:35 PM EDTPatient Instructions Note Date & Type Note Facility 01-27-2025 History of Presen t illness Narrative Associated Problem(s): Other fatigue Unclear etiology Check labs Associated Problem(s): Non compliance w medication regimen Difficulty with follow ups, taking all meds and getting to all appts No longer being followed by advocate d/t pt non compliance Associated Problem(s): Hypomagnesemia Check labs Associated Problem(s): Vitamin D deficiency Check labs Associated Problem(s): Type 2 diabetes mellitus with hyperglycemia, with long-term current use of insulin ([facility]) Check blood sugars daily, notify if <70 [...] bolus insulin, A1c: 9.4% 11/18/24, 08/13 10.1% Associated Problem(s): B12 deficiency Check to see if source of fatigue Associated Problem(s): Hyperparathyroidism, unspecified (CMS/HCC) Non compliant with fu with nephrology Associated Problem(s): 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 Check labs Associated Problem(s): Urinary tract infection symptoms See UA from office Will treat with atb today, Check urine culture Associated Problem(s): Neurogenic bladder Straight caths self TID Associated Problem(s): History of neurogenic bladder (Resolved 01/27/2025) Is straight cathing herself 3 times daily Will check labs Associated Problem(s): Chronic kidney disease, stage 4 (severe) (CMS/HCC) Long standing uncontrolled HTN and DM Multiple attempts to get pt to specialists, does not follow through She is established with local 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 She has been referred to local area Endo and Varnish Maker, but does not go to her appts [...] see if therapies are helping or not Associated Problem(s): Essential (primary) hypertension (CMS/HCC) Please check blood pressure daily and record DASH diet Limit caffeine Take medication as directed Contact office if chest pain, pressure, dizziness, shortness of breath, swelling legs Recommend slow position changes Current meds: amlodipine and metoprolol Associated Problem(s): Type 2 diabetes mellitus with diabetic neuropathy, with long-term current use of insulin ([facility]) Not sure if her balance issues are neuropathy related or lumbar etiology Pt has been very fatigue, sleeping a [...] drinks about 3 bottles of water daily. Images from the original note were not [...] factor. Also had stress test/echo: 11/2024 at [facility] normal Back pain: no pain at rest, [...] (LASIX) 40 mg, 2 times daily HYDROcodone-acetaminophen (Etowah) 7.5-325 MG tablet 1 tablet, 3 times [...] of left great toe (CMS/HCC) Cervical cancer ([facility]/HCC) 10/11/2023 had Hysterectomy Charcot's joint of foot, left 10/11/2023 Chronic kidney disease, stage III (moderate) (HCC) ([facility]) 10/11/2023 Fatty liver 10/11/2023 History of hysterectomy [...] of nail of digit of hand Osteoporosis ([facility]) 10/11/2023 Post-menopausal 10/11/2023 Rheumatoid arthritis ([facility]) 10/11/2023 RSD (reflex sympathetic dystrophy) 10/11/2023 Type 2 diabetes mellitus with diabetic neuropathy, unspecified whether alf insulin use ([facility]) 10/11/2023 Visual impairment 10/11/2023 HAD BILATERAL CATARCT [...] Size: Adult long) Pulse 69 Temp 97.8 F (Temporal) Resp 18 Wt 128 lb 12.8 oz SpO2 96% BMI 25.15 kg/m Smoking Status Never BSA 1.57 m [...] hyperglycemia, with long-term current use of insulin ([facility]) Check blood sugars daily, notify if <70 [...] Straight caths self TID Essential (primary) hypertension (CMS/HCC) Please check blood pressure daily and record [...] neuropathy, with long-term current use of insulin ([facility]) Not sure if her balance issues are neuropathy related or lumbar etiology Relevant Orders Basic metabolic panel 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 Check labs Relevant Orders Basic metabolic panel Hyperparathyroidism, unspecified ([facility]) Non compliant with fu with nephrology B12 deficiency Check to see if source of fatigue Mixed hyperlipidemia ([facility]) Relevant Medications atorvastatin (Lipitor) 20 MG tablet Other Relevant Orders Basic metabolic panel Chronic kidney disease, stage 4 (severe) ([facility]) Long standing uncontrolled HTN and DM Multiple attempts to get pt to specialists, does not follow through She is established with local 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 She has been referred to local area Endo and Varnish Maker, but does not go to her appts [...] Vitamin B12 Folate documented in this encounter [facility] 01-27-2025 Instructions Agusto Olmstead NP - 01/27/2025 2:40 PM EDT Check labs documented in this encounter [facility] 01-15-2025 Miscellaneous Notes Last Office Visit: 01/08/2025 Next Office Visit: Visit date not found Last Urine Drug Screen: Lab Results Component Value Date BENZOSCRN Negative 08/09/2023 OARRS appropriate documented in this encounter [facility] 01-15-2025 Telephone encounter Note Last Office Visit: 01/08/2025 Next Office Visit: Visit date not found Last Urine Drug Screen: Lab Results Component Value Date BENZOSCRN Negative 08/09/2023 OARRS appropriate [facility] 01-08-2025 History of Presen t illness Narrative [facility] [address] [place] [address] Patient: Aislinn Wheeler Sex: female : 1960 Age: 64 y.o. PCP: AGUSTO OLMSTEAD, HAIR [employer] METHODS DEVELOPER 01/08/2025 Aislinn Wheeler is here for a(n)3 month follow up. Chief Complaint Patient presents with Arm Injury [...] shoulder, upper right arm and upper left arm. The quality of the pain is described as aching and stabbing. The pain does not radiate. The pain is at a severity of 10/10. The pain is severe. The pain has been Constant since the incident. Associated symptoms include muscle weakness (BUE), numbness (tips of fingers and bilateral feet) and tingling (tips of fingers and bilateral feet). Pertinent negatives include no chest pain. The symptoms are aggravated by movement, lifting and palpation (sitting, lifting, lying, twisting, leaning on cart, cold/heat). Treatments tried: Tizanidine, Lyrica, Gabapentin, [place], Elevation, NSAIDs x 2 (Ibuprofen, Aleve), Flexeril, BioFreeze, Immobilization w/min relief, Celebrex & compound cream w/no relief, Rt Stellate Ganglion NB w/mod relief. The treatment provided moderate relief. The effect of pain on patient's ADLS: Moderate Impairment. Past Medical History: Diagnosis Date Arthritis RHEUMATOID Arthritis OSTEOARTHRITIS Asthma At risk for UTI related to indwelling catheter Broken toes 08/2022 Bronchitis Cancer ([facility]) UTERINE Chronic kidney disease 2015 stage 3 per pt 04/05/23 COVID-19 virus infection 09/28/2021 Diabetes mellitus ([facility]) Fibromyalgia GERD (gastroesophageal reflux disease) History of degenerative disc disease Hypertension Joint pain Lupus Mitral valve prolapse Osteoarthritis Pneumonia released from hospital on 11/12/21 RSD (reflex sympathetic dystrophy) Stroke ([facility]) Past Surgical History: Procedure Laterality Date AMPUTATION OF REPLICATED TOES Left 06/2022 ANKLE SURGERY CATARACT EXTRACTION, BILATERAL Bilateral 03/22 and 04/13 CHOLECYSTECTOMY HYSTERECTOMY INJECTION BLOCK NERVE STELLATE GANGLION NECK Right 03/15/2024 Performed by Zackery Miranda MD at [facility] INJE[facility] BLOCK NERVE STELLATE GANGLION NECK Right 10/13/2023 Performed by Zackery Miranda MD at [facility] INJECTION BLOCK NERVE STELLATE GANGLION NECK Right 12/23/2022 Performed by Zackery Miranda MD at [facility] INJECTION BLOCK NERVE STELLATE GANGLION NECK Right 05/06/2022 Performed by Zackery Miranda MD at [facility] INJECTION BLOCK NERVE STELLATE GANGLION NECK Right 10/15/2021 Performed by Zackery Miranda MD at [facility] INJECTION BLOCK STELLATE GANGLION N/A 02/17/2017 Performed by Zackery Miranda MD at [facility] INJECTION BLOCK STELLATE GANGLION NECK Right 06/18/2018 Performed by Zackery Miranda MD at [facility] INJECTION BLOCK STELLATE GANGLION NECK N/A 05/15/2017 Performed by Zackery Miranda MD at [facility] INJECTION BLOCK STELLATE GANGLION NECK Right Right 05/22/2020 Performed by Zackery Miranda MD at [facility] INJECTION BLOCK STELLATE GANGLION NECK Right N/A 10/04/2019 Performed by Zackery Miranda MD at [facility] INJECTION BLOCK STELLATE GANGLION NECK Right Right 05/10/2019 Performed by Zackery Miranda MD at [facility] INJECTION BLOCK STELLATE GANGLION NECK Right Right 12/31/2018 Performed by Zackery Miranda MD at [facility] INJECTION BLOCK STELLATE GANGLION NECK Right Right 10/09/2017 Performed by Zackery Miranda MD at [facility] KNEE SURGERY REMOVAL STIMULATOR SPINAL CORD N/A 12/29/2017 Performed by Zackery Miranda MD at [facility] SHOULDER [facility]GERY Allergies Allergen Reactions Latex Added [...] Resource Strain: Medium Risk (10/11/2023) Received from [facility] Overall Financial Resource Strain (CARDIA) Difficulty of Paying Living Expenses: Somewhat hard Food Insecurity: No Food Insecurity (01/08/2025) Hunger Screening Food Insecurity - Worry: Never True Food Insecurity - Inability: Never True Transportation Needs: No Transportation Needs (10/11/2023) Received from [facility] PRAPARE - Transportation Lack of Transportation (Medical): No Lack of Transportation (Non-Medical): No Physical Activity: Inactive (10/11/2023) Received from [facility] Exercise Vital Sign Days of Exercise per Week: 0 days Minutes of Exercise per Session: 0 min Stress: Stress Concern Present (10/11/2023) Received from [facility] [employer] [place] [employer] - Occupational Stress Questionnaire Feeling of Stress : Very much Social Connections: Socially Isolated (10/11/2023) Received from [facility] Social Connection and Isolation Panel [NHANES] Frequency of Communication with Friends and Family: More than three times a week Frequency of Social Gatherings with Friends and Family: More than three times a week Attends Sikh Services: Never Active Member of Clubs or Organizations: No Attends Club or Organization Meetings: Never Marital Status: Interpersonal Safety: Unknown (10/12/2023) Received from [facility] Safety & Environment Fear of Current or Ex-Partner: Not on file Emotionally Abused: Not on file Physically Abused: Not on file Sexually Abused: Not on file Physically or Sexually Abused: Not on file Housing Instability: Low Risk (10/11/2023) Received from [facility] Housing Stability Vital Sign Unable to Pay for Housing in the Last Year: No Number of Places Lived in the Last Year: 1 Unstable Housing in the Last Year: No Review of Systems Constitutional: Negative. HENT: Negative. Eyes: Negative. Respiratory: Negative. Cardiovascular: Negative for chest pain. Gastrointestinal: Negative. Endocrine: Negative. Genitourinary: Negative. Musculoskeletal: Positive for arthralgias. Skin: Negative. Neurological: Positive for tingling (tips of fingers and bilateral feet) and numbness (tips of fingers and bilateral feet). Vital Signs: BP 137/71 (BP Site: Right Arm, BP Postition: Sitting) Pulse 70 Resp 18 Ht 152.4 cm (5') Wt 59.4 kg (131 lb) SpO2 100% BMI 25.58 kg/m Physical Exam: GENERAL - Healthy patient [...] or intellect. Extremity Exam: Examination of the Right upper extremity reveals notable Hyperpathia and allodynia. [...] Diagnoses and all orders for this visit: Reflex sympathetic dystrophy of right upper extremity - Case request operating room: INJECTION BLOCK NERVE STELLATE GANGLION NECK Right - Controlled Substance Monitoring, U - Gabapentin, Urine - Pregabalin, Urine Continue Etowah 7.5/325 mg TID PRN and Lyrica 150 mg TID Urine Drug Screen - To monitor the safety of chronic medication therapy, we will order a Urine Drug Screen. This screen will test for illegal substances as well as prescription medications that we are providing to the patient. As part of our medication policy and contract, the patient has agreed to use only the medications provided by our office in the manner recommended and any deviation of that use can result in discontinuation of the medications from our clinic. Right Stellate Ganglion Block - under fluoroscopy with the use of contrast dye (unless contraindicated) It is hopeful that the described procedure will provide symptomatic pain relief. It is felt to be medically necessary noting that the patient has tried and failed more conservative modalities of therapy and this is the next most appropriate step. The procedure was described in detail to the patient as well as the potential benefits of pain reduction alongside risks of the procedure and alternatives. Risks were described as including, but not limited to bleeding, infection, nerve damage, spinal cord injury, paralysis, stroke, dural puncture headache, and medication reaction. The patient expressed understanding regarding the risks and benefits and wishes to proceed. It was explained that stellate ganglion injections often require a series of 2-3 before significant relief is noted, but we will determine after each injection if another one is indicated. Depending on the amount and duration of relief obtained from the injection, additional modalities of therapy including medications and physical therapy may need to be utilized alongside or following the injections. It was also explained that the injection will cause temporary facial droop and difficulty swallowing. These mild symptoms generally only last 2-3 hours and this should be anticipated in advance. Follow up 2 weeks after procedure The medications I have prescribed have been reviewed for medication interactions/contraindications and/or for upcoming procedures: continue current medication regimen without any changes. DISCUSSION: Treatment options discussed with patient and [...] medication that requires intensive monitoring for toxicity Etowah and Lyrica. OARRS and most recent UDS were reviewed, discussed and appropriate for medications prescribed. Etowah pill count completed at today's office visit. Dose: 7.5/325 tablet; ; TID PRN Quantity Dispensed 90 Quantity Remaining 52 Fill date on prescription bottle 12/26/2024 appropriate Patient educated to bring medication to every office visit. It is noted that the patient did have good response from the previously performed procedure. It is felt that the patient would benefit from an additional procedure of the same nature in that the same symptoms have returned. It is hopeful that this additional injection will provide additional benefit and duration when combined with the previous injection. The spine model was demonstrated and CT was reviewed and used to explain the condition. Chronic conditions not treated during this visit that affected my overall medical decision making: Comorbidity- Obesity The patient does have a comorbid condition of obesity. This will be taken into account in that obesity will contribute to certain pain conditions. It can contribute to pain from degenerative disc disease as well as osteoarthritis of the joints. Many neuropathic symptoms are also amplified due to axial spine loading. Special benefits will also need to be given to procedures. Many procedures are technically more difficult in the light of severe obesity. I will also consider the possibility of undiagnosed obstructive sleep apnea (which often accompanies obesity) when prescribing any narcotic medications. I will weigh the risks and benefits and fully discuss them with the patient for these reasons. OARRS: Reviewed. Scribe Statement: I, Agusto Gray CNA, scribed for and in the presence of SWETA CH PA-C who performed the above service. Agusto Gray CNA 01/08/25 1322 Sweta Ch PA-C 01/08/25 1327 documented in this encounter Mytonomy 01-08-2025 Instructions Agusto Gray CNA - 01/08/2025 12:15 PM EDT Epidural Steroid Injection (JALEESA) / Nerve Root Injection / Nerve Block These procedure(s) involve the injection of a steroid and anesthetic into the epidural space or the nerve sheath that is both diagnostic and potentially therapeutic for alleviating discomfort of the legs and arms secondary to compression of the respective nerves due to bulging discs, bone spurs and other potential causes. Steroids are potent anti-inflammatory drugs that act to decrease the swollen and inflamed nerves thus relieving your clinical symptoms. How Long Will This Procedure Last? The extent and duration of pain relief may depend on the amount of inflammation and how many areas are involved. Other coexisting factors may be responsible for your pain. You and your physician will discuss expected results of procedure(s). After Your Injection You may experience soreness and tenderness at the area of treatment. This pain may not occur until later today after the numbing medicine wears off. The steroid can take 3-5 days to work and provide noticeable improvement. Activity You may feel temporary numbness, weakness or tingling: In the neck, arm, or fingertips (if your procedure was done in your neck) In the legs (if your procedure was done in your lower back) These symptoms are normal, and should subside within 3-4 hours. In that time, be careful to avoid falls. As a safety precaution, you must have a city route driver after a lumbar nerve root injection, even if you do not receive sedation. Resume activity as tolerated when function has returned. Medications Resume your routine medications after your procedure. You may resume blood thinners per your regular schedule after the procedure. If you received sedation: If you received sedation for your procedure, you may feel sleepy or not yourself for several hours today. For the next 24 hours avoid activities that requires alertness or coordination. This includes: Driving or operating heavy machinery Using power tools Consuming alcohol Do not make important or complex decisions or sign legal documents in the next 24 hours. Other Instructions: If you feel severe pain at the injection site with swelling and redness, increased leg weakness, a fever of 101 or higher, headache (or worsening headache), changes in vision or urinary retention: Please call the office at , or have someone take you to the nearest emergency room. Tell the emergency room staff that you recently had a spine injection. A doctor must evaluate you for bleeding and injection complications. If you lose control over bowel, bladder, or legs: Go to the nearest emergency room. If you are diabetic, the steroids used in this procedure can increase your blood sugar. If your blood sugar is 250mg/dL or higher, contact your primary care physician, or the doctor who manages your diabetes, to discuss how to get it back to normal. documented in this encounter [facility] 12-18-2024 Miscellaneous Notes Last OV: 10/09/24 Next OV: 01/08/25 OARRS appropriate: yes Last UDS: 04/24/24 Pharmacy: [facility] documented in this encounter [facility] 12-18-2024 Telephone encounter Note Last OV: 10/09/24 Next OV: 01/08/25 OARRS appropriate: yes Last UDS: 04/24/24 Pharmacy: [facility] 12-05-2024 History of Presen t illness Narrative Patient: Aislinn Wheeler : 1960 PCP: Kofi Gotti MD SUBJECTIVE This is a 64 y.o. female that presents today 18 days s/p right foot foreign body removal with I and D Pt denies n/f/v/c and has minimal pain to post op site. Pt states that they have been keeping dressing dry and intact and have been weight-bearing to post op foot. Patient has finished oral antibiotics and was last seen at [facility] inpatient Pt presents today for follow up. Patient is type 2 diabetic with uncontrolled sugars Allergies: Allergies Allergen Reactions Latex Rash Added based on information entered during case entry, please review and add reactions, type, and severity as needed Past Medical History: Past Medical History: Diagnosis Date Amputation of left great toe ([facility]) Cervical cancer ([facility]) 10/11/2023 had Hysterectomy Charcot's joint of foot, left 10/11/2023 Chronic kidney disease, stage III (moderate) ([facility]) ([facility] 10/11/2023 Fatty liver 10/11/2023 History of hysterectomy [...] of nail of digit of hand Osteoporosis ([facility]) 10/11/2023 Post-menopausal 10/11/2023 Rheumatoid arthritis ([facility]) 10/11/2023 RSD (reflex sympathetic dystrophy) 10/11/2023 Type 2 diabetes mellitus with diabetic neuropathy, unspecified whether alf insulin use ([facility]) 10/11/2023 Visual impairment 10/11/2023 HAD BILATERAL CATARCT SURGERY BETTER NOW Medications: Current Outpatient Medications: amLODIPine (Norvasc) 10 MG tablet, Take 1 tablet (10 mg) by mouth Daily, Disp: 90 tablet, Rfl: 0 atorvastatin (Lipitor) 20 MG tablet, Take 1 tablet (20 mg) by mouth at bedtime, Disp: 90 tablet, Rfl: 0 cetirizine (ZyrTEC) 10 MG tablet, Take 1 tablet (10 mg) by mouth Daily, Disp: 30 tablet, Rfl: 2 cyanocobalamin (Vitamin B-12) 1000 MCG tablet, Take 1,000 mcg by mouth Daily, Disp: , Rfl: denosumab (Prolia) 60 MG/ML solution prefilled syringe, Inject 60 mg under the skin every 6 (six) months, Disp: , Rfl: ferrous sulfate 325 (65 Fe) MG EC tablet, Take 325 mg by mouth in the morning. Take with meals., Disp: , Rfl: fluticasone (Flonase) 50 MCG/ACT nasal spray, Administer 2 sprays into each nostril Daily Shake gently. Before first use, prime pump. After use, clean tip and replace cap. (Patient taking differently: Administer 2 sprays into each nostril Daily as needed for allergies or rhinitis Shake gently. Before first use, prime pump. After use, clean tip and replace cap.), Disp: 16 g, Rfl: 2 furosemide (Lasix) 40 MG tablet, Take 40 mg by mouth in the morning and 40 mg before bedtime. (Patient not taking: Reported on 12/04/2024), Disp: , Rfl: HYDROcodone-acetaminophen ([place]ow[place]) 7.5-325 MG tablet, Take 1 tablet by mouth 3 (three) times a day as needed, Disp: , Rfl: insulin glargine (Lantus) 100 UNIT/ML injection, Inject 30 Units under the skin at bedtime, Disp: 30 mL, Rfl: 1 insulin lispro (HumaLOG) 100 UNIT/ML injection, INJECT 4 units at breakfast, 6 units at lunch, and 8 units at dinner plus sliding scale coverage, max of 30 units daily, Disp: 5 each, Rfl: 3 metoprolol succinate XL (Toprol-XL) 50 MG 24 hr tablet, Take 1 tablet (50 mg) by mouth Daily, Disp: 90 tablet, Rfl: 0 nitroglycerin (Nitrostat) 0.4 MG SL tablet, Place 0.4 mg under the tongue every 5 (five) minutes if needed for chest pain, Disp: , Rfl: ondansetron ODT (Zofran-ODT) 4 MG disintegrating tablet, Take 4 mg by mouth every 8 (eight) hours if needed for vomiting or nausea, Disp: , Rfl: pen needle 31G x 5 mm misc, 5 injections daily. Use as instructed, Disp: 300 each, Rfl: 6 pregabalin (Lyrica) 150 MG capsule, Take 1 capsule by mouth in the morning and 1 capsule at noon and 1 capsule in the evening., Disp: , Rfl: ROS: General: denies fever, chills, fatigue, malaise OBJECTIVE LE EXAM: Derm: right foot sub 5th metatarsal region has negative erythema negative edema negative drainage and dry and healed wound. Vascular: Palpable pedal pulses to right foot Neuro: Gross sensation absent to right foot. Musculoskeletal: Negative pain on palpation to right calf. Ortho: Ankle range of motion less than 10 degrees of dorsiflexion at right ankle joint. ASSESSMENT 18 days s/p right foot foreign body excision with cellulitis and I&D 1. Cellulitis of right foot 2. Laceration of right foot with foreign body, initial encounter 3. Diabetes mellitus due to underlying condition with diabetic polyneuropathy, with long-term current use of insulin ([facility]) PLAN Patient may returned to normal shoe gear and discontinue antibiotics and contact Podiatry if any further issues Patient educated today on proper diabetic foot care including monitoring feet daily for any signs of infection openings in the skin or irregularities to both feet. Patient had a diabetic neurological exam today to both their feet and discussed proper shoe gear. oCry Angeles DPM documented in this encounter [facility] 12-04-2024 History of Presen t illness Narrative Associated Problem(s): Memory impairment Will send for neuropsych evaluation to determine if underlying issue contributes to non compliance Associated Problem(s): Non compliance w medication regimen Difficulty with follow ups, taking all meds and getting to all appts Now has pt advocateReyes Associated Problem(s): Type 2 diabetes mellitus with hyperglycemia, with long-term current use of insulin ([facility]) Check blood sugars daily, notify if <70 [...] bolus insulin, A1c: 9.4% 11/18/24, 08/13 10.1% Associated Problem(s): Neurogenic bladder Refer to Urogyn for second opinion about possible surgical options Associated Problem(s): Acute renal failure ([facility]) Recent hospitalization for this Needs to be compliant with fu with Nephrology Phone number given Associated Problem(s): Type 2 diabetes mellitus with diabetic neuropathy, with long-term current use of insulin ([facility]) Recommend freq foot checks, proper fitting shoes And better glucose control Images from the original note were not included. Aislinn Wheeler is a 64 y.o. female presents with chief complaint of Follow-up ([facility] f/up) HPI: Here for hospital fu: was sent by myself (after review of labs dated 11/21/24) ANATOLIY, hyperkalemia Reviewed notes from [facility] for specialty and labs and stress test etc Here today for recheck Blood pressure is better SUBJECTIVE: MEDICATIONS: Current Outpatient Medications Medication Instructions amLODIPine (NORVASC) 10 mg, Oral, Daily amoxicillin-clavulanate (Augmentin) 875-125 MG tablet 1 tablet atorvastatin (LIPITOR) 20 mg, Oral, Nightly cetirizine [...] (LASIX) 40 mg, 2 times daily HYDROcodone-acetaminophen ([place]) 7.5-325 MG tablet 1 tablet, 3 times [...] chest pain, palpitations and leg swelling. Gastrointestinal: Negative for abdominal pain, blood in stool, constipation, diarrhea, nausea and vomiting. Genitourinary: Positive for difficulty urinating and frequency. Negative for dysuria. Musculoskeletal: Negative for arthralgias, back pain, joint swelling and myalgias. Skin: Negative for rash and wound. Neurological: Negative for dizziness, tremors, seizures, syncope and headaches. Psychiatric/Behavioral: Negative for behavioral problems, decreased concentration, self-injury and suicidal ideas. The patient is not nervous/anxious. Hematological: Does not bruise/bleed easily. Endocrine: Negative for polydipsia, polyphagia and polyuria. Allergic/Immunologic: Negative for environmental allergies and food allergies. PAST MEDICAL HISTORY Past Medical History: Diagnosis Date Amputation of left great toe ([facility]) Cervical cancer ([facility]) 10/11/2023 had Hysterectomy Charcot's joint of foot, left 10/11/2023 Chronic kidney disease, stage III (moderate) ([facility]) ([facility]) 10/11/2023 Fatty liver 10/11/2023 History of hysterectomy [...] of nail of digit of hand Osteoporosis ([facility]) 10/11/2023 Post-menopausal 10/11/2023 Rheumatoid arthritis ([facility]) 10/11/2023 RSD (reflex sympathetic dystrophy) 10/11/2023 Type 2 diabetes mellitus with diabetic neuropathy, 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 OBJECTIVE: Visit Vitals BP 134/72 Pulse 61 Temp 97.5 F Resp 20 Ht 5' Wt 134 lb SpO2 97% BMI 26.17 kg/m Smoking Status Never BSA 1.6 m [...] No edema. Left lower leg: No edema. Skin: General: Skin is warm and dry. Capillary Refill: Capillary refill takes 2 to 3 seconds. Findings: No rash. Comments: Wound to her right 5th toe dorsal region healing, skin is pealing, no drainage noted, not warm to touch Neurological: General: No focal deficit present. Mental Status: She is alert and oriented to person, place, and time. Psychiatric: Mood and Affect: Mood normal. Behavior: Behavior normal. Thought Content: Thought content normal. Judgment: Judgment normal. ASSESSMENT AND PLAN: No follow-ups on file. Problem List Items Addressed This Visit Type 2 diabetes mellitus with hyperglycemia, with long-term current use of insulin ([facility]) Check blood sugars daily, notify if <70 [...] bolus insulin, A1c: 9.4% 11/18/24, 08/13 10.1% Essential (primary) hypertension (CMS/HCC) Please check blood pressure daily and record DASH diet Limit caffeine Take medication as directed Contact office if chest pain, pressure, dizziness, shortness of breath, swelling legs Recommend slow position changes Current meds: amlodipine and metoprolol Type 2 diabetes mellitus with diabetic neuropathy, with long-term current use of insulin (CMS/HCC) Recommend freq foot checks, proper fitting shoes And better glucose control Chronic kidney disease, stage 4 (severe) (CMS/HCC) - Primary Long standing uncontrolled HTN and DM Multiple attempts to get pt to specialists, does not follow through She is established with local 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 She has been referred to local area Endo and [facility], but does not go to her appts as scheduled and has been discharged, and does not appear to have a strong support system Relevant Orders Basic metabolic panel CBC and differential FPC (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 ([facility]) Non compliance w medication regimen Difficulty with follow ups, taking all meds and getting to all appts Now has pt advocate, Reyes Canela Acute renal failure ([facility]) Recent hospitalization for this Needs to be compliant with fu with Nephrology Phone number given History of neurogenic bladder Memory impairment Will send for neuropsych evaluation to determine if underlying issue contributes to non compliance Relevant Orders Ambulatory referral to Neuropsychology Associated Problem(s): Essential (primary) hypertension (CMS/HCC) Please check blood pressure daily and record DASH diet Limit caffeine Take medication as directed Contact office if chest pain, pressure, dizziness, shortness of breath, swelling legs Recommend slow position changes Current meds: amlodipine and metoprolol Associated Problem(s): Chronic kidney disease, stage 4 (severe) (CMS/HCC) Long standing uncontrolled HTN and DM Multiple attempts to get pt to specialists, does not follow through She is established with local 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 She has been referred to local area Endo and [facility], but does not go to her appts as scheduled and has been discharged, and does not appear to have a strong support system documented in this encounter [facility] 12-04-2024 Instructions Agusto Olmstead NP - 12/04/2024 11:00 AM EDT Manager Medicare Aleksey, please call him to schedule an appointment: I have attached the letter he sent you. Kidney doctor: please call them to make sure you have a follow up appointment: [address] [place] [address], phone: [phone] Foot doctor: Dr Enrique, call his office to see about a follow up appt for them to check your foot. [phone] I would also like to have you see a Neuropsychiatrist: this is a doctor that helps us figure out more about your memory, like to see if this is related to depression/anxiety , or dementia, or other things, Dr Gonzalez [phone] they should call you documented in this encounter [facility] 11-26-2024 Progress note Note Date/Time November 26, 2024 11:53am [facility] [address] [place] [address] Nephrology Progress Note Signed Patient: Aislinn Wheeler MR#: [id number] : 1960 Acct:[id number] Age/Sex: 64 / F Adm Date: 5 Loc: 3T Room: 5R8374-6 Type: ADM IN Attending Dr: Demian Dorantes MD Copies to: ~ Date of Service: 11/26/2024 Subjective Subjective Narrative: This is a 64-year-old female with a medical see of CKD, DM, HTN, HLD, bilateral hydronephrosis with neurogenic bladder, secondary hyperparathyroidism and anemiawho was advised by the PCP to go to the emergency room for hyperkalemia and worsening renal function. Patient has a neurogenic bladder and currently self catheterize herself. She was initially following with Dr. Lisa aguilera andwas given a few detox injection but has no improvement. [facility] she was advised to have a major surgery that she opted against it. She reported now she is referred to the [facility] by her PCP. Patient has a CKD due to longstanding DM and HTN and follows with Dr. Sprague inoutpatient clinic. Patient was admitted for similar reason in August 2024. Onpresentation emergency room patient was found to have hyperkalemia with serum potassium 5.5 mmol/L, abnormal renal function with elevated creatinine to 2.6 mg/dL and metabolic acidosis. Patient was given Lokelma I will start him IV sodium bicarbonate drip by nephrology. She also had CT abdomen pelvis done which showed severe bilateral hydronephrosis with more pronounced bladder distention. Patient had a Valerio catheter placement in the emergency room and has good urine output. Interval history: Patient is doing well with no more shortness of breath or chest pain. Lexiscan was negative for ischemia. EF reported 65 to 70%. Patient was cleared by cardiology to be discharged. Valerio catheter was removed yesterday the patient had agitation. Renal function has markedly improved with resolution of urine retention with creatinine down to2.19 mg/dL. Acidosis and hyperkalemia has resolved as well. Exam Physical Exam Vital Signs: Temp Pulse Resp BP Pulse Ox O2 Del Method 36.7 C 76 18 189/87 H 98 Room Air 11/26/24 08:10 11/26/24 08:10 11/26/24 08:10 11/26/24 08:10 11/26/24 08:10 11/26/24 08:10 Narrative: Constitutional: Appears comfortable and not in distress HEENT: No pallor or Jaundice Cardiovascular: RRR, normal S1-S2, no gallop or rub, No JVD Respiratory: Good bilateral air entry no wheezing or crackles Gastrointestinal: Soft, non tender, positive bowel sounds Extremities: No edema Skin: No rashes or bruises Musculoskeletal: No joints swellings or inflammation Neurology: Awake, alert, oriented ?3, No focal motor or sensory deficits Psych: Normal mood and affect Objective Intake and Output I&O: Intake & Output 11/23/24 11/24/24 11/25/24 11/26/24 23:59 23:59 23:59 23:59 Intake Total 650 / 650 2270 / 2270 450 / 450 Output Total 1700 / 1700 1575 / 1575 Balance 650 / 650 570 / 570 -1125 / -1125 Weight 60 kg 60 kg 60.2 kg 60.4 kg Meds and Allergies Meds: Active Medications Hydrocodone Bitart/Acetaminophen (Hydrocodone/Acetaminophen 7.5-325mg Tablet) 1tab PO Q8HR PRN PRN Reason: PRN PAIN Last Admin: 11/26/24 09:41 Dose: 1 tab Amlodipine Besylate (Amlodipine 10 Mg Tablet) 10 mg PO DAILY [facility] Stop: 11/24/25 08:59 Last Admin: 11/26/24 09:36 Dose: 10 mg Atorvastatin Calcium (Atorvastatin 20 Mg Tablet) 20 mg PO DAILY [facility] Stop: 11/24/25 08:59 Last Admin: 11/26/24 09:36 Dose: 20 mg Dextrose (Dextrose 50% In Water 25 Gm/50 Ml Syringe) 0 gm IV-PUSH PRN PRN PRN Reason: Hypoglycemia Stop: 11/24/25 02:41 Ergocalciferol (Ergocalciferol 1,250 Mcg (50,000 Units) Capsule) 1,250 mcg PO Mo@0900 [facility] Stop: 12/02/25 08:59 Ferrous Sulfate (Ferrous Sulfate 324 Mg Tablet.Dr) 324 mg PO DAILY [facility] Stop: 11/24/25 08:59 Last Admin: 11/26/24 09:36 Dose: 324 mg Fluticasone Propionate (Fluticasone Propionate Muddy 120 Muddy/16 Gm Bottle) 2 spray INTRANASAL DAILY PRN PRN Reason: nasal congestion Stop: 11/23/25 18:54 Glucose (Dextrose 40% Gel 15 Gm Tube) 0 gm PO PRN PRN PRN Reason: Hypoglycemia Stop: 11/24/25 02:41 Heparin Sodium (Porcine) (Heparin 5,000 Unit/Ml Vial) 5,000 unit SUBCUT Q12HR [facility] Stop: 11/23/25 20:59 Last Admin: 11/26/24 09:37 Dose: 5,000 unit Hydralazine HCl (Hydralazine 20 Mg/Ml Vial) 10 mg IV-PUSH Q6H PRN PRN Reason: if SBP > 185 Stop: 11/23/25 18:48 Last Admin: 11/25/24 12:40 Dose: 10 mg Ampicillin Sodium/Sulbactam Sodium (Unasyn) 3 gm in 100 mls @ 200 mls/hr IV Q12H [facility] Last Admin: 11/26/24 09:36 Dose: 200 mls/hr Insulin Aspart (Insulin Aspart 300 Units/3 Ml) 0 units SUBCUT TID.WITH.MEALS [facility]; Protocol Stop: 11/24/25 07:59 Last Admin: 11/26/24 09:37 Dose: 4 units Insulin Aspart (Insulin Aspart 300 Units/3 Ml) 0 units SUBCUT TID.WM.HS [facility]; Protocol Stop: 11/24/25 07:59 Last Admin: 11/26/24 08:28 Dose: Not Given Insulin Glargine (Insulin Glargine 300 Units/3 Ml Insuln.Pen) 28 units SUBCUT QHS [facility] Stop: 11/23/25 21:59 Last Admin: 11/25/24 21:09 Dose: 28 units Loratadine (Loratadine 10 Mg Tablet) 10 mg PO DAILY PRN PRN Reason: allergy symptoms Stop: 11/23/25 20:59 Melatonin (Melatonin 5 Mg Tablet) 5 mg PO QHS PRN PRN Reason: insomnia Stop: 11/26/25 21:59 Last Admin: 11/25/24 23:35 Dose: 5 mg Metoprolol Succinate (Metoprolol Succinate 50 Mg Tab.Er.24h) 50 mg PO DAILY [facility] Stop: 11/25/25 08:59 Last Admin: 11/26/24 09:36 Dose: 50 mg Nitroglycerin (Nitroglycerin 0.4 Mg Tab.Subl) 0.4 mg SUBLINGUAL Q5M PRN PRN Reason: chest pain Stop: 11/23/25 18:54 Ondansetron HCl (Ondansetron Odt 4 Mg Tab.Rapdis) 4 mg PO Q8HR PRN PRN Reason: nausea and vomiting Stop: 11/23/25 18:54 Pantoprazole Sodium (Pantoprazole 40 Mg Tablet.Dr) 40 mg PO DAILY [facility] Stop: 11/24/25 08:59 Last Admin: 11/26/24 09:36 Dose: 40 mg Pregabalin (Pregabalin 150 Mg Capsule) 150 mg PO Q8HR [facility] Stop: 05/22/25 21:59 Last Admin: 11/26/24 05:29 Dose: 150 mg Sodium Chloride (Sodium Chloride 0.9 % 10 Ml Syringe) 0 ml IV-PUSH PRN PRN PRN Reason: Flush Stop: 11/23/25 15:07 Sodium Chloride (Sodium Chloride 0.9 % 10 Ml Syringe) 10 ml IV-PUSH Q8H [facility] Stop: 11/23/25 18:14 Last Admin: 11/26/24 09:40 Dose: 10 ml Sodium Chloride (Sodium Chloride 0.9 % 10 Ml Syringe) 0 ml IV-PUSH PRN PRN PRN Reason: Flush Stop: 11/24/25 10:08 Last Admin: 11/25/24 10:37 Dose: 30 ml Allergies latex Allergy (Unknown, Verified 11/23/24 15:08) Unresponsive Results - Nephrology Labs 11/26/24 05:20 11/26/24 05:20 Labs: 11/26/24 05:20 BUN 39 H Creatinine 2.19 H Phosphorus 4.0 Albumin 2.9 L Radiology Impressions Impressions - last 24 hours: Any impression(s) listed above is documentation that was entered by the reading physician into a diagnostic report(s) for Aislinn Wheeler. I have reviewed the report(s) and am incorporating any findings in the treatment plan of this patient where applicable. A&P - Nephrology Assessment/Plan (1) Acute kidney injury superimposed on CKD: Assessment/Problem Details: She has an ANATOLIY due to the urinary retention. She has a good urine output after Valerio catheter placement. Serum creatinine is now turning down with improvementof hyperkalemia and acidosis. (2) Hyperkalemia: Assessment/Problem Details: Resolved with Lokelma and IV bicarbonate. (3) CKD stage 3b, GFR 30-44 ml/min: Assessment/Problem Details: She has a CKD due to the longstanding DM and HTN. Her renal function has been declining due to progression of the CKD in setting of recurrent ANATOLIY's. (4) Hydroureteronephrosis: Assessment/Problem Details: She has bilateral hydronephrosis due to the neurogenic bladder. She follows with the urology outpatient at [facility]. (5) Neurogenic bladder: Assessment/Problem Details: She has a neurogenic bladder and was seen by the urology at [facility]. She was recommended to have a surgical intervention but opted against this. She is referred to now urogynecologist at [facility] for second opinion. (6) Diabetes: Assessment/Problem Details: She has insulin-dependent type 2 diabetes mellitus and takes insulin glargine athome. Hemoglobin A1c was as high as 14% however recently did improve down to 9%. (7) Hypertension: Assessment/Problem Details: Her blood pressure is high. She takes amlodipine, metoprolol and Lasix at home. Plan * Blood pressure still elevated. IV fluid was stopped yesterday. Renal function continued to improve with creatinine 2.19 mg/dL closer to the baseline. * Blood pressure still elevated on amlodipine and metoprolol despite increasing the dose of amlodipine to 10 mg daily. She still off furosemide that will be restarted at 40 mg p.o. twice a day for better blood pressure control. Will assess for the addition of TIMBO inhibitor, angiotensin III blockers, MRA and and SGL 2 inhibitor after stabilization and improvement of renal function. * Monitor daily intake, output and renal panel Patient can be discharged from renal point in time. She was advised to use selfcath at home and follow-up with [facility] for neurogenic bladder and recurrent urine retention. Patient will follow-up with Dr. Sprague in nephrology clinic. Documented By: Akin Dougherty MD 11/26/24 1147 Signed By: <Electronically signed by MD Akin Dougherty> 11/26/24 8[address] [facility] Work Phone: [phone] 403-860304-08-[address] [address] Nephrology Progress Note Signed Patient: Aislinn Wheeler MR#: [id number] : 1960 Acct:[id number] Age/Sex: 64 / F Adm Date: 5 Loc: 3T Room: 7V5473-7 Type: ADM IN Attending Dr: Demian Dorantes MD Copies to: ~ Date of Service: 11/26/2024 Subjective Subjective Narrative: This is a 64-year-old female with a medical see of CKD, DM, HTN, HLD, bilateral hydronephrosis withneurogenic bladder, secondary hyperparathyroidism and anemiawho was advised by the PCP to go to theemergency room for hyperkalemia and worsening renal function. Patient has a neurogenic bladder and currently self catheterize herself. She was initially following with Dr. Lisa aguilera andwas given a few detox injection but has no improvement. [facility] that she was advised to have a major surgery that she opted against it. She reported now she is referred to the [facility] by her PCP. Patient has a CKD due to longstanding DM and HTN and follows with Dr. Sprague inoutpatient clinic. Patient was admitted for similar reason in August 2024. Onpresentation emergency room patient was found to have hyperkalemia with serum potassium 5.5 mmol/L, abnormal renal function with elevated creatinine to 2.6 mg/dL and metabolic acidosis. Patient was given Lokelma I will start him IV sodium bicarbonate drip by nephrology. She also had CT abdomen pelvis done which showed severe bilateral hydronephrosis with more pronounced bladder distention. Patient had a Valerio catheter placement in the emergency room and has good urine output. Interval history: Patient is doing well with no more shortness of breath or chest pain. Lexiscan was negative for ischemia. EF reported 65 to 70%. Patient was cleared by cardiology to be discharged. Valerio catheter was removed yesterday the patient had agitation. Renal function has markedly improved with resolution of urine retention with creatinine down to2.19 mg/dL. Acidosis and hyperkalemia has resolved as well. Exam Physical Exam Vital Signs: Temp Pulse Resp BP Pulse Ox O2 Del Method 36.7 C 76 18 189/87 H 98 Room Air 11/26/24 08:10 11/26/24 08:10 11/26/24 08:10 11/26/24 08:10 11/26/24 08:10 11/26/24 08:10 Narrative: Constitutional: Appears comfortable and not in distress HEENT: No pallor or Jaundice Cardiovascular: RRR, normal S1-S2, no gallop or rub, No JVD Respiratory: Good bilateral air entry no wheezing or crackles Gastrointestinal: Soft, non tender, positive bowel sounds Extremities: No edema Skin: No rashes or bruises Musculoskeletal: No joints swellings or inflammation Neurology: Awake, alert, oriented ?3, No focal motor or sensory deficits Psych: Normal mood and affect Objective Intake and Output I&O: Intake & Output 11/23/24 11/24/24 11/25/24 11/26/24 23:59 23:59 23:59 23:59 Intake Total 650 / 650 2270 / 2270 450 / 450 Output Total 1700 / 1700 1575 / 1575 Balance 650 / 650 570 / 570 -1125 / -1125 Weight 60 kg 60 kg 60.2 kg 60.4 kg Meds and Allergies Meds: Active Medications Hydrocodone Bitart/Acetaminophen (Hydrocodone/Acetaminophen 7.5-325mg Tablet) 1tab PO Q8HR PRN PRN Reason: PRN PAIN Last Admin: 11/26/24 09:41 Dose: 1 tab Amlodipine Besylate (Amlodipine 10 Mg Tablet) 10 mg PO DAILY [facility] Stop: 11/24/25 08:59 Last Admin: 11/26/24 09:36 Dose: 10 mg Atorvastatin Calcium (Atorvastatin 20 Mg Tablet) 20 mg PO DAILY [facility] Stop: 11/24/25 08:59 Last Admin: 11/26/24 09:36 Dose: 20 mg Dextrose (Dextrose 50% In Water 25 Gm/50 Ml Syringe) 0 gm IV-PUSH PRN PRN PRN Reason: Hypoglycemia Stop: 11/24/25 02:41 Ergocalciferol (Ergocalciferol 1,250 Mcg (50,000 Units) Capsule) 1,250 mcg PO Mo@0900 [facility] Stop: 12/02/25 08:59 Ferrous Sulfate (Ferrous Sulfate 324 Mg Tablet.Dr) 324 mg PO DAILY [facility] Stop: 11/24/25 08:59 Last Admin: 11/26/24 09:36 Dose: 324 mg Fluticasone Propionate (Fluticasone Propionate Muddy 120 Muddy/16 Gm Bottle) 2 spray INTRANASAL DAILY PRN PRN Reason: nasal congestion Stop: 11/23/25 18:54 Glucose (Dextrose 40% Gel 15 Gm Tube) 0 gm PO PRN PRN PRN Reason: Hypoglycemia Stop: 11/24/25 02:41 Heparin Sodium (Porcine) (Heparin 5,000 Unit/Ml Vial) 5,000 unit SUBCUT Q12HR [facility] Stop: 11/23/25 20:59 Last Admin: 11/26/24 09:37 Dose: 5,000 unit Hydralazine HCl (Hydralazine 20 Mg/Ml Vial) 10 mg IV-PUSH Q6H PRN PRN Reason: if SBP > 185 Stop: 11/23/25 18:48 Last Admin: 11/25/24 12:40 Dose: 10 mg Ampicillin Sodium/Sulbactam Sodium (Unasyn) 3 gm in 100 mls @ 200 mls/hr IV Q12H [facility] Last Admin: 11/26/24 09:36 Dose: 200 mls/hr Insulin Aspart (Insulin Aspart 300 Units/3 Ml) 0 units SUBCUT TID.WITH.MEALS [facility]; Protocol Stop: 11/24/25 07:59 Last Admin: 11/26/24 09:37 Dose: 4 units Insulin Aspart (Insulin Aspart 300 Units/3 Ml) 0 units SUBCUT TID.WM.HS [facility]; Protocol Stop: 11/24/25 07:59 Last Admin: 11/26/24 08:28 Dose: Not Given Insulin Glargine (Insulin Glargine 300 Units/3 Ml Insuln.Pen) 28 units SUBCUT QHS [facility] Stop: 11/23/25 21:59 Last Admin: 11/25/24 21:09 Dose: 28 units Loratadine (Loratadine 10 Mg Tablet) 10 mg PO DAILY PRN PRN Reason: allergy symptoms Stop: 11/23/25 20:59 Melatonin (Melatonin 5 Mg Tablet) 5 mg PO QHS PRN PRN Reason: insomnia Stop: 11/26/25 21:59 Last Admin: 11/25/24 23:35 Dose: 5 mg Metoprolol Succinate (Metoprolol Succinate 50 Mg Tab.Er.24h) 50 mg PO DAILY [facility] Stop: 11/25/25 08:59 Last Admin: 11/26/24 09:36 Dose: 50 mg Nitroglycerin (Nitroglycerin 0.4 Mg Tab.Subl) 0.4 mg SUBLINGUAL Q5M PRN PRN Reason: chest pain Stop: 11/23/25 18:54 Ondansetron HCl (Ondansetron Odt 4 Mg Tab.Rapdis) 4 mg PO Q8HR PRN PRN Reason: nausea and vomiting Stop: 11/23/25 18:54 Pantoprazole Sodium (Pantoprazole 40 Mg Tablet.Dr) 40 mg PO DAILY [facility] Stop: 11/24/25 08:59 Last Admin: 11/26/24 09:36 Dose: 40 mg Pregabalin (Pregabalin 150 Mg Capsule) 150 mg PO Q8HR [facility] Stop: 05/22/25 21:59 Last Admin: 11/26/24 05:29 Dose: 150 mg Sodium Chloride (Sodium Chloride 0.9 % 10 Ml Syringe) 0 ml IV-PUSH PRN PRN PRN Reason: Flush Stop: 11/23/25 15:07 Sodium Chloride (Sodium Chloride 0.9 % 10 Ml Syringe) 10 ml IV-PUSH Q8H [facility] Stop: 11/23/25 18:14 Last Admin: 11/26/24 09:40 Dose: 10 ml Sodium Chloride (Sodium Chloride 0.9 % 10 Ml Syringe) 0 ml IV-PUSH PRN PRN PRN Reason: Flush Stop: 11/24/25 10:08 Last Admin: 11/25/24 10:37 Dose: 30 ml Allergies latex Allergy (Unknown, Verified 11/23/24 15:08) Unresponsive Results - Nephrology Labs 11/26/24 05:20 11/26/24 05:20 Labs: 11/26/24 05:20 BUN 39 H Creatinine 2.19 H Phosphorus 4.0 Albumin 2.9 L Radiology Impressions Impressions - last 24 hours: Any impression(s) listed above is documentation that was entered by the reading physician into a diagnostic report(s) for Aislinn Pulido Liam. I have reviewed the report(s) and am incorporating any findings in the treatment plan of this patient where applicable. A&P - Nephrology Assessment/Plan (1) Acute kidney injury superimposed on CKD: Assessment/Problem Details: She has an ANATOLIY due to the urinary retention. She has a good urine output after Valerio catheter placement. Serum creatinine is now turning down with improvementof hyperkalemia and acidosis. (2) Hyperkalemia: Assessment/Problem Details: Resolved with Lokelma and IV bicarbonate. (3) CKD stage 3b, GFR 30-44 ml/min: Assessment/Problem Details: She has a CKD due to the longstanding DM and HTN. Her renal function has been declining due to progression of the CKD in setting of recurrent ANATOLIY's. (4) Hydroureteronephrosis: Assessment/Problem Details: She has bilateral hydronephrosis due to the neurogenic bladder. She follows with the urology outpatient at [facility]. (5) Neurogenic bladder: Assessment/Problem Details: She has a neurogenic bladder and was seen by the urology at [facility]. She was recommended to have a surgical intervention but opted against this. She is referred to now urogynecologist at [facility] for second opinion. (6) Diabetes: Assessment/Problem Details: She has insulin-dependent type 2 diabetes mellitus and takes insulin glargine athome. Hemoglobin A1c was as high as 14% however recently did improve down to 9%. (7) Hypertension: Assessment/Problem Details: Her blood pressure is high. She takes amlodipine, metoprolol and Lasix at home. Plan * Blood pressure still elevated. IV fluid was stopped yesterday. Renal function continued to improve with creatinine 2.19 mg/dL closer to the baseline. * Blood pressure still elevated on amlodipine and metoprolol despite increasing the dose of amlodipine to 10 mg daily. She still off furosemide that will be restarted at 40 mg p.o. twice a day for better blood pressure control. Will assess for the addition of TIMBO inhibitor, angiotensin III blockers, MRA and and SGL 2 inhibitor after stabilization and improvement of renal function. * Monitor daily intake, output and renal panel Patient can be discharged from renal point in time. She was advised to use selfcath at home and follow-up with [facility] for neurogenic bladder and recurrent urine retention. Patient will follow-up with Dr. Sprague in nephrology clinic. Documented By: Akin Dougherty MD 11/26/24 1147 Signed By: 11/26/24 1153 [facility]04-07-2025 Progress note Author Jodi Merchant [facility] Note Date/Time November 25, 2024 8:08 pm [facility] [address] [place] [address] Hospitalist Progress Note Signed Patient: Aislinn Wheeler MR#: [id number] : 1960 Acct:[id number] Age/Sex: 64 / F Adm Date: 5 Loc: 3T Room: [address] [place] [address] Type: ADM IN Attending Dr: Demian Dorantes MD Copies to: ~ Date of Service: 11/25/2024 Subjective Subjective Narrative: Bedside procedure yesterday with podiatry for removal of foreign body. Denies any chest pain. Pending stress test for today. Currently is denying chest painor dyspnea.Patient seen and examined. She offers no complaints. Reports neuropathy bilateral feet and thus cannot feel any significant pain. Underwent Exam Physical Exam Vital Signs: Temp Pulse Resp BP Pulse Ox O2 Del Method 97.9 F 73 16 205/89 H 98 Room Air 11/25/24 09:01 11/25/24 10:38 11/25/24 09:01 11/25/24 10:38 11/25/24 09:01 11/25/24 09:01 Narrative: CONST- alert, in bed CARD- RRR no abnormal heart tones PULM- dimin without wheeze or rhonchi, RA ABD- S/NT, NABS EXTREM- no edema BLE, calves nontender Skin?right foot dressing in place site not seen Objective Lab Results 11/24/24 05:14 11/25/24 09:39 Microbiology Results Microbiology 11/23/24 16:11 Urine - Clean-Voided Midstream Urine Culture - Final No Growth 2 Days Meds Allergies and Active Meds Allergies latex Allergy (Unknown, Verified 11/23/24 15:08) Unresponsive Active Meds: Active Medications Generic Name Dose Route Start Last Admin Trade Name Lyudmila PRN Reason Stop Dose Admin Hydrocodone Bitart/Acetaminophen 1 tab 11/23/24 22:00 11/25/24 06:48 Hydrocodone/Acetaminophen 7.5-325mg Tablet PO 1 tab Q8HR PRN Administration PRN PAIN Amlodipine Besylate 10 mg 11/24/24 09:00 11/25/24 09:10 Amlodipine 10 Mg Tablet PO 11/24/25 08:59 Not Given DAILY [facility] Atorvastatin Calcium 20 mg 11/24/24 09:00 11/25/24 09:02 Atorvastatin 20 Mg Tablet PO 11/24/25 08:59 20 mg DAILY [facility] Administration Dextrose 0 gm 11/24/24 02:42 Dextrose 50% In Water 25 Gm/50 Ml Syringe IV-PUSH 11/24/25 02:41 PRN PRN Hypoglycemia Ergocalciferol 1,250 mcg 12/02/24 09:00 Ergocalciferol 1,250 Mcg (50,000 Units) Capsule PO 12/02/25 08:59 Mo@0900 U[facility]EL Ferrous Sulfate 324 mg 11/24/24 09:00 11/25/24 09:02 Ferrous Sulfate 324 Mg Tablet. PO 11/24/25 08:59 324 mg DAILY [facility] Administration Fluticasone Propionate 2 spray 11/23/24 18:55 Fluticasone Propionate Muddy 120 Muddy/16 Gm Bottle INTRANASAL 11/23/25 18:54 DAILY PRN nasal congestion Glucose 0 gm 11/24/24 02:42 Dextrose 40% Gel 15 Gm Tube PO 11/24/25 02:41 PRN PRN Hypoglycemia Heparin Sodium (Porcine) 5,000 unit 11/23/24 21:00 11/25/24 09:02 Heparin 5,000 Unit/Ml Vial SUBCUT 11/23/25 20:59 5,000 unit Q12HR U[facility]IEL Administration Hydralazine HCl 10 mg 11/23/24 18:49 11/24/24 11:05 Hydralazine 20 Mg/Ml Vial IV-PUSH 11/23/25 18:48 10 mg Q6H PRN Administration if SBP > 185 Sodium Bicarbonate 150 meq/ 1,150 mls @ 75 mls/hr 11/23/24 19:00 11/24/24 21:18 Sterile Water IV 11/23/25 18:59 75 mls/hr .[id number] UZIEL Administration Ampicillin Sodium/Sulbactam Sodium 3 gm in 100 mls @ 200 mls/hr 11/23/24 20:30 11/24/24 20:37 Unasyn IV 200 mls/hr Q12H [facility] Administration Insulin Aspart 0 units 11/24/24 08:00 11/25/24 09:11 Insulin Aspart 300 Units/3 Ml SUBCUT 11/24/25 07:59 Not Given TID.WITH.MEALS [facility] Protocol Insulin Aspart 0 units 11/24/24 08:00 11/25/24 09:11 Insulin Aspart 300 Units/3 Ml SUBCUT 11/24/25 07:59 Not Given TID.WM.HS [facility] Protocol Insulin Glargine 28 units 11/23/24 22:00 11/24/24 21:59 Insulin Glargine 300 Units/3 Ml Insuln.Pen SUBCUT 11/23/25 21:59 28 units QHS [facility] Administration Loratadine 10 mg 11/23/24 21:00 Loratadine 10 Mg Tablet PO 11/23/25 20:59 DAILY PRN allergy symptoms Metoprolol Succinate 50 mg 11/25/24 09:00 11/25/24 09:03 Metoprolol Succinate 50 Mg Tab.Er.24h PO 11/25/25 08:59 Not Given DAILY [facility] Nitroglycerin 0.4 mg 11/23/24 18:55 Nitroglycerin 0.4 Mg Tab.Subl SUBLINGUAL 11/23/25 18:54 Q5M PRN chest pain Ondansetron HCl 4 mg 11/23/24 18:55 Ondansetron Odt 4 Mg Tab.Rapdis PO 11/23/25 18:54 Q8HR PRN nausea and vomiting Pantoprazole Sodium 40 mg 11/24/24 09:00 11/25/24 09:02 Pantoprazole 40 Mg Tablet.Dr PO 11/24/25 08:59 40 mg DAILY [facility] Administration Pregabalin 150 mg 11/23/24 22:00 11/25/24 06:47 Pregabalin 150 Mg Capsule PO 05/22/25 21:59 150 mg Q8HR U[facility]IEL Administration Sodium Chloride 0 ml 11/23/24 15:08 Sodium Chloride 0.9 % 10 Ml Syringe IV-PUSH 11/23/25 15:07 PRN PRN Flush Sodium Chloride 10 ml 11/23/24 18:15 11/25/24 01:37 Sodium Chloride 0.9 % 10 Ml Syringe IV-PUSH 11/23/25 18:14 Not Given Q8H U[facility]IEL Sodium Chloride 0 ml 11/24/24 10:09 11/25/24 10:37 Sodium Chloride 0.9 % 10 Ml Syringe IV-PUSH 11/24/25 10:08 30 ml PRN PRN Administration Flush A&P - Hospitalist Assessment/Plan (1) Neurogenic bladder: (2) Hyperkalemia: (3) CKD stage 3b, GFR 30-44 ml/min: (4) Anemia of renal disease: (5) Hypertensive emergency: (6) Hydroureteronephrosis: (7) Overactive bladder: Plan ANATOLIY on CKD 3 Chronic urinary retention with neurogenic bladder Hyperkalemia, resolved Metabolic acidosis Anemia of CKD - Nephrology consultation appreciated - Bilateral hydronephrosis-follows with [facility] urology - Bicarb drip - Trend lab Chest pain Hypertensive emergency, resolved - Cardiology consultation appreciated, cleared for discharge - Negative Lexiscan 11/25 - Echo EF 65 to 70% with LVEDD - Amlodipine, metoprolol Right foot cellulitis secondary to foreign body - Seen by podiatry, foreign body removed 11/24 - Unasyn Chronic conditions Diabetes with neuropathy?SSI AC, fingerstick, glargine, pregabalin Hyperlipidemia?atorvastatin CODE STATUS: Full code Dr. Dorantes Attestation: Patient was personally seen by me on the day of encounter. I reviewed Her history and performed miller elements of exam and formulated the plan of care and confirmed the nurse practitioners note above. Plan of care reflects my direct input Documented By: Jodi Merchant APRN 03/14 1153 Signed By: <Electronically signed by ASHVIN Merchant> 11/25/24 1601 <Electronically signed by Demian Dorantes MD> 11/25/242007 [facility] Work Phone: 1(830) 986-899204-07-2025 [place] [address] Hospitalist Progress Note Signed Patient: Aislinn Wheeler MR#: [id number] : 1960 Acct:[id number] Age/Sex: 64 / F Adm Date: 5 Loc: Room: [address] [place] [address] Type: ADM IN Attending Dr: Demian Dorantes MD Copies to: ~ Date of Service: 11/25/2024 Subjective Subjective Narrative: Bedside procedure yesterday with podiatry for removal of foreign body. Denies any chest pain. Pending stress test for today. Currently is denying chest painor dyspnea.Patient seen and examined. She offers no complaints. Reports neuropathy bilateral feet and thus cannot feel any significant pain. Underwent Exam Physical Exam Vital Signs: Temp Pulse Resp BP Pulse Ox O2 Del Method 97.9 F 73 16 205/89 H 98 Room Air 11/25/24 09:01 11/25/24 10:38 11/25/24 09:01 11/25/24 10:38 11/25/24 09:01 11/25/24 09:01 Narrative: CONST- alert, in bed CARD- RRR no abnormal heart tones PULM- dimin without wheeze or rhonchi, RA ABD- S/NT, NABS EXTREM- no edema BLE, calves nontender Skin?right foot dressing in place site not seen Objective Lab Results 11/24/24 05:14 11/25/24 09:39 Microbiology Results Microbiology 11/23/24 16:11 Urine - Clean-Voided Midstream Urine Culture - Final No Growth 2 Days Meds Allergies and Active Meds Allergies latex Allergy (Unknown, Verified 11/23/24 15:08) Unresponsive Active Meds: Active Medications Generic Name Dose Route Start Last Admin Trade Name Freq PRN Reason Stop Dose Admin Hydrocodone Bitart/Acetaminophen 1 tab 11/23/24 22:00 11/25/24 06:48 Hydrocodone/Acetaminophen 7.5-325mg Tablet PO 1 tab Q8HR PRN Administration PRN PAIN Amlodipine Besylate 10 mg 11/24/24 09:00 11/25/24 09:10 Amlodipine 10 Mg Tablet PO 11/24/25 08:59 Not Given DAILY [facility] Atorvastatin Calcium 20 mg 11/24/24 09:00 11/25/24 09:02 Atorvastatin 20 Mg Tablet PO 11/24/25 08:59 20 mg DAILY [facility] Administration Dextrose 0 gm 11/24/24 02:42 Dextrose 50% In Water 25 Gm/50 Ml Syringe IV-PUSH 11/24/25 02:41 PRN PRN Hypoglycemia Ergocalciferol 1,250 mcg 12/02/24 09:00 Ergocalciferol 1,250 Mcg (50,000 Units) Capsule PO 12/02/25 08:59 Mo@0900 [facility] Ferrous Sulfate 324 mg 11/24/24 09:00 11/25/24 09:02 Ferrous Sulfate 324 Mg Tablet. PO 11/24/25 08:59 324 mg DAILY [facility] Administration Fluticasone Propionate 2 spray 11/23/24 18:55 Fluticasone Propionate Muddy 120 Muddy/16 Gm Bottle INTRANASAL 11/23/25 18:54 DAILY PRN nasal congestion Glucose 0 gm 11/24/24 02:42 Dextrose 40% Gel 15 Gm Tube PO 11/24/25 02:41 PRN PRN Hypoglycemia Heparin Sodium (Porcine) 5,000 unit 11/23/24 21:00 11/25/24 09:02 Heparin 5,000 Unit/Ml Vial SUBCUT 11/23/25 20:59 5,000 unit Q12HR U[facility]IEL Administration Hydralazine HCl 10 mg 11/23/24 18:49 11/24/24 11:05 Hydralazine 20 Mg/Ml Vial IV-PUSH 11/23/25 18:48 10 mg Q6H PRN Administration if SBP > 185 Sodium Bicarbonate 150 meq/ 1,150 mls @ 75 mls/hr 11/23/24 19:00 11/24/24 21:18 Sterile Water IV 11/23/25 18:59 75 mls/hr .[id number] [facility]EL Administration Ampicillin Sodium/Sulbactam Sodium 3 gm in 100 mls @ 200 mls/hr 11/23/24 20:30 11/24/24 20:37 Unasyn IV 200 mls/hr Q12H [facility] Administration Insulin Aspart 0 units 11/24/24 08:00 11/25/24 09:11 Insulin Aspart 300 Units/3 Ml SUBCUT 11/24/25 07:59 Not Given TID.WITH.MEALS [facility] Protocol Insulin Aspart 0 units 11/24/24 08:00 11/25/24 09:11 Insulin Aspart 300 Units/3 Ml SUBCUT 11/24/25 07:59 Not Given TID.WM.HS [facility] Protocol Insulin Glargine 28 units 11/23/24 22:00 11/24/24 21:59 Insulin Glargine 300 Units/3 Ml Insuln.Pen SUBCUT 11/23/25 21:59 28 units QHS [facility]EL Administration Loratadine 10 mg 11/23/24 21:00 Loratadine 10 Mg Tablet PO 11/23/25 20:59 DAILY PRN allergy symptoms Metoprolol Succinate 50 mg 11/25/24 09:00 11/25/24 09:03 Metoprolol Succinate 50 Mg Tab.Er.24h PO 11/25/25 08:59 Not Given DAILY [facility] Nitroglycerin 0.4 mg 11/23/24 18:55 Nitroglycerin 0.4 Mg Tab.Subl SUBLINGUAL 11/23/25 18:54 Q5M PRN chest pain Ondansetron HCl 4 mg 11/23/24 18:55 Ondansetron Odt 4 Mg Tab.Rapdis PO 11/23/25 18:54 Q8HR PRN nausea and vomiting Pantoprazole Sodium 40 mg 11/24/24 09:00 11/25/24 09:02 Pantoprazole 40 Mg Tablet.Dr PO 11/24/25 08:59 40 mg DAILY [facility] Administration Pregabalin 150 mg 11/23/24 22:00 11/25/24 06:47 Pregabalin 150 Mg Capsule PO 05/22/25 21:59 150 mg Q8HR [facility]IEL Administration Sodium Chloride 0 ml 11/23/24 15:08 Sodium Chloride 0.9 % 10 Ml Syringe IV-PUSH 11/23/25 15:07 PRN PRN Flush Sodium Chloride 10 ml 11/23/24 18:15 11/25/24 01:37 Sodium Chloride 0.9 % 10 Ml Syringe IV-PUSH 11/23/25 18:14 Not Given Q8H UZIEL Sodium Chloride 0 ml 11/24/24 10:09 11/25/24 10:37 Sodium Chloride 0.9 % 10 Ml Syringe IV-PUSH 11/24/25 10:08 30 ml PRN PRN Administration Flush A&P - Hospitalist Assessment/Plan (1) Neurogenic bladder: (2) Hyperkalemia: (3) CKD stage 3b, GFR 30-44 ml/min: (4) Anemia of renal disease: (5) Hypertensive emergency: (6) Hydroureteronephrosis: (7) Overactive bladder: Plan ANATOLIY on CKD 3 Chronic urinary retention with neurogenic bladder Hyperkalemia, resolved Metabolic acidosis Anemia of CKD - Nephrology consultation appreciated - Bilateral hydronephrosis-follows with [facility] urology - Bicarb drip - Trend lab Chest pain Hypertensive emergency, resolved - Cardiology consultation appreciated, cleared for discharge - Negative Lexiscan 11/25 - Echo EF 65 to 70% with LVEDD - Amlodipine, metoprolol Right foot cellulitis secondary to foreign body - Seen by podiatry, foreign body removed 11/24 - Unasyn Chronic conditions Diabetes with neuropathy?SSI AC, fingerstick, glargine, pregabalin Hyperlipidemia?atorvastatin CODE STATUS: Full code Dr. Dorantes Attestation: Patient was personally seen by me on the day of encounter. I reviewed Her history and performed keyelements of exam and formulated the plan of care and confirmed the nurse practitioners note above. Plan of care reflects my direct input Documented By: Jodi Merchant, HAIR DRYER 03/14 1153 Signed By: 11/25/24 1601 11/25/242007 [facility]04-07-2025 Progress note Author Irena Haro [facility] Note Date/Time November 25, 2024 3:30 pm [facility] [address] [place] [address] Cardiology Progress Note Signed Patient: Aislinn Wheeler MR#: [id number] : 1960 Acct:[id number] Age/Sex: 64 / F Adm Date: 5 Loc: Room: [address] [place] [address] Type: ADM IN Attending Dr: Demian Dorantes MD Copies to: ~ Date of Service: 11/25/2024 Subjective Interval history: Ms. Wheeler is a 64 year old female who was admitted to [facility] initially for hyperkalemia. She has a long history of CKD due to obstructive uropathy secondary to an overactive bladder. Her creatinine typically stays > 2 but she is not on dialysis. On admission she also mentioned chest pain that has been ongoing for 1-2 months. The chest pain is retrosternal,sharp in nature, occurs randomly sometimes during exertion and sometimes while she is sitting watching TV. There is no associated shortness of breath, nausea, vomiting, palpitations or syncope. She had a stress test around 2 years ago at [facility] which was normal per patient. Here, her EKG shows nonspecific T wave changes and troponin x 3 negative. She cannot exercise on a treadmill dueto severe diabetic neuropathy and prior amputation of left great toe. Interim evaluation 11/25/2024: No acute events overnight. Denies chest pain or dyspnea this am. Completed stress MPI this am. Exam Physical Exam Vital Signs: Temp Pulse Resp BP Pulse Ox O2 Del Method 97.9 F 71 17 150/82 H 98 Room Air 11/25/24 09:01 11/25/24 12:35 11/25/24 12:35 11/25/24 14:06 11/25/24 12:35 11/25/24 12:35 Narrative: GEN: AAOx3. No acute distress. Neck: No JVD. Lungs: Clear to auscultation bilaterally Heart: Regular rate and rhythm. Normal S1 and S2. No murmurs or rubs appreciated. Abdomen: Soft, nontender, nondistended, bowel sounds present. Extremities: No BLE edema. Neuro: AAOx3. No focal deficits. Objective Labs 11/24/24 05:14 11/25/24 09:39 Labs: Laboratory Results - last 24 hr 11/24/24 11/24/24 11/24/24 05:14 17:05 21:38 PHA Creatinine Clear Sodium Potassium Chloride Carbon Dioxide Anion Gap BUN Creatinine Est GFR (CKD-EPI) Glucose POC Glucose 89 166 Estimat Average Glucose 223 Hemoglobin A1c 9.4 H Calcium Phosphorus Albumin 11/25/24 11/25/24 06:43 09:39 PHA Creatinine Clear 20.22 Sodium 140 Potassium 4.8 Chloride 106 Carbon Dioxide 28.6 Anion Gap 10.2 BUN 47 H Creatinine 2.22 H Est GFR (CKD-EPI) 23.862 Glucose 72 D POC Glucose 99 Estimat Average Glucose Hemoglobin A1c Calcium 8.2 L Phosphorus 3.1 Albumin 3.2 L A&P - Cardiology (1) Chest pain: Code(s): R07.9 - Chest pain, unspecified (2) Hypertension: Code(s): I10 - Essential (primary) hypertension (3) Diabetes: Code(s): E11.9 - Type 2 diabetes mellitus without complications (4) CKD stage 3b, GFR 30-44 ml/min: Code(s): N18.32 - Chronic kidney disease, stage 3b Plan # Chest pain. EKG changes are nonspecific. # Hyperkalemia - improved. # CKD 4, obstructive uropathy and overactive bladder. # Other: HTN, T2DM with polyneuropathy, H/o Right great toe amputation, RLS, Fibromyalgia, Rh arthritis. - Lexiscan stress MPI negative for ischemia. EF 68% TID 1.0. Evaluate for other causes of chest pain if persists. - ECHO shows normal LV function 65-70% with grade I diastolic dysfunction. - Cont home meds including amlodipine, BB, statin - OK to discharge home from cardiology perspective. Follow up with PCP on discharge. Documented By: Irena Haro MD 11/25/24 8793 Signed By: <Electronically signed by Irena Haro MD> 11/25/24 1530 [facility] Work Phone: 1(911) 173-866604-07-2025 [place] [id number] Cardiology Progress Note Signed Patient: Aislinn Wheeler MR#: [id number] : 1960 Acct:[id number] Age/Sex: 64 / F Adm Date: 5 Loc: 3T Room: [address] [place] [address] Type: ADM IN Attending Dr: Demian Dorantes MD Copies to: ~ Date of Service: 11/25/2024 Subjective Interval history: Ms. Wheeler is a 64 year old female who was admitted to [facility] initially for hyperkalemia. She has a long history of CKD due to obstructive uropathy secondary to an overactive bladder. Her creatinine typically stays > 2 but she is not on dialysis. On admission she also mentioned chest pain that has been ongoing for 1-2 months. The chest pain is retrosternal,sharp in nature, occurs randomly sometimes during exertion and sometimes while she is sitting watching TV. There is no associated shortness of breath, nausea, vomiting, palpitations or syncope. She had a stresstest around 2 years ago at [facility] which was normal per patient. Here, her EKG shows nonspecific T wave changes and troponin x 3 negative. She cannot exercise on a treadmill dueto severe diabetic neuropathy and prior amputation of left great toe. Interim evaluation 11/25/2024: No acute events overnight. Denies chest pain or dyspnea this am. Completed stress MPI this am. Exam Physical Exam Vital Signs: Temp Pulse Resp BP Pulse Ox O2 Del Method 97.9 F 71 17 150/82 H 98 Room Air 11/25/24 09:01 11/25/24 12:35 11/25/24 12:35 11/25/24 14:06 11/25/24 12:35 11/25/24 12:35 Narrative: GEN: AAOx3. No acute distress. Neck: No JVD. Lungs: Clear to auscultation bilaterally Heart: Regular rate and rhythm. Normal S1 and S2. No murmurs or rubs appreciated. Abdomen: Soft, nontender, nondistended, bowel sounds present. Extremities: No BLE edema. Neuro: AAOx3. No focal deficits. Objective Labs 11/24/24 05:14 11/25/24 09:39 Labs: Laboratory Results - last 24 hr 11/24/24 11/24/24 11/24/24 05:14 17:05 21:38 PHA Creatinine Clear Sodium Potassium Chloride Carbon Dioxide Anion Gap BUN Creatinine Est GFR (CKD-EPI) Glucose POC Glucose 89 166 Estimat Average Glucose 223 Hemoglobin A1c 9.4 H Calcium Phosphorus Albumin 11/25/24 11/25/24 06:43 09:39 PHA Creatinine Clear 20.22 Sodium 140 Potassium 4.8 Chloride 106 Carbon Dioxide 28.6 Anion Gap 10.2 BUN 47 H Creatinine 2.22 H Est GFR (CKD-EPI) 23.862 Glucose 72 D POC Glucose 99 Estimat Average Glucose Hemoglobin A1c Calcium 8.2 L Phosphorus 3.1 Albumin 3.2 L A&P - Cardiology (1) Chest pain: Code(s): R07.9 - Chest pain, unspecified (2) Hypertension: Code(s): I10 - Essential (primary) hypertension (3) Diabetes: Code(s): E11.9 - Type 2 diabetes mellitus without complications (4) CKD stage 3b, GFR 30-44 ml/min: Code(s): N18.32 - Chronic kidney disease, stage 3b Plan # Chest pain. EKG changes are nonspecific. # Hyperkalemia - improved. # CKD 4, obstructive uropathy and overactive bladder. # Other: HTN, T2DM with polyneuropathy, H/o Right great toe amputation, RLS, Fibromyalgia, Rh arthritis. - Lexiscan stress MPI negative for ischemia. EF 68% TID 1.0. Evaluate for other causes of chest pain if persists. - ECHO shows normal LV function 65-70% with grade I diastolic dysfunction. - Cont home meds including amlodipine, BB, statin - OK to discharge home from cardiology perspective. Follow up with PCP on discharge. Documented By: Irena Haro MD 11/25/24 1525 Signed By: 11/25/24 1530 [facility]04-07-2025 Nuclear medicine Diagnostic study [facility] [place] [address] [place] [address] Nuclear Medicine Report Signed Patient: Aislinn Wheeler MR#: [id number] : 1960 Acct:[id number] Age/Sex: 64 / F ADM Date: 5 Loc: 3T Room: [address] [place] [address] Type: ADM IN Attending Dr: Demian Dorantes MD Copies to: MD Galo Olsen MD Linda Njoroge, MD~ Ordering Provider: Galo Mcmullen MD Date of Service: 11/25/24 NM/NM layton perf SPECT rest & str: Chest pain NUCLEAR MYOCARDIAL PERFUSION DATE OF PROCEDURE: 11/25/2024 PROCEDURE: The patient received a stress dose of Lexiscan and was then injected with 19.6 millicuries of Technetium 99M Sestamibi. For rest images the patient was injected with 6.6 millicuries of Technetium 99M Sestamibi. FINDINGS: The raw cine images were reviewed. The post stress and rest perfusion images were reviewed as well as the computer quantification.? There was uniform uptake of the radiotracer with no perfusion defects identified.? On the gated portion of the study, there was uniform thickening with an overall ejection fraction calculated at 68%.? TID score was within normal limits. CONCLUSION: 1. Gated spect Sestamibi study is within normal limits. 2. Left ventricular function was preserved. Impression dictated by: Irena Haro M.D.11/25/2024 3:24 PM Dictation Location: [place] [address] Transcribed By: [facility] 11/25/24 1524 Dictated By: Irena Haro MD 11/25/24 1523 Signed By: 11/25/24 [facility] Work Phone: 1(362) 289-334304-07-2025 Progress note Author Akin [facility] Note Date/Time November 25, 2024 12:4 2pm [facility] [address] [place] [address] Nephrology Progress Note Signed Patient: Aislinn Wheeler MR#: [id number] : 1960 Acct:[id number] Age/Sex: 64 / F Adm Date: 5 Loc: 3T Room: 4R9792-6 Type: ADM IN Attending Dr: Demian Dorantes MD Copies to: ~ Date of Service: 11/25/2024 Subjective Subjective Narrative: This is a 64-year-old female with a medical see of CKD, DM, HTN, HLD, bilateral hydronephrosis with neurogenic bladder, secondary hyperparathyroidism and anemiawho was advised by the PCP to go to the emergency room for hyperkalemia and worsening renal function. Patient has a neurogenic bladder and currently self catheterize herself. She was initially following with Dr. Lisa aguilera andwas given a few detox injection but has no improvement. [facility] that she was advised to have a major surgery that she opted against it. She reported now she is referred to the [facility] by her PCP. Patient has a CKD due to longstanding DM and HTN and follows with Dr. Sprague inoutpatient clinic. Patient was admitted for similar reason in August 2024. Onpresentation emergency room patient was found to have hyperkalemia with serum potassium 5.5 mmol/L, abnormal renal function with elevated creatinine to 2.6 mg/dL and metabolic acidosis. Patient was given Lokelma I will start him IV sodium bicarbonate drip by nephrology. She also had CT abdomen pelvis done which showed severe bilateral hydronephrosis with more pronounced bladder distention. Patient had a Valerio catheter placement in the emergency room and has good urine output. Interval history: Patient has good urine output 1.12 mL/kg/h after insertion of Valerio catheter last night. Renal function slowly improving with creatinine down to 2.2 mg/dL with better potassium 4.8 and carbon oxide up to 28.6 mL. Patient is undergoing cardiac nuclear stress test as she has ST-T wave changes on admission.. She was supposed to have cardiac cath before however it was postponed because of elevated serum creatinine. Exam Physical Exam Vital Signs: Temp Pulse Resp BP Pulse Ox O2 Del Method 36.6 C 73 16 205/89 H 98 Room Air 11/25/24 09:01 11/25/24 10:38 11/25/24 09:01 11/25/24 10:38 11/25/24 09:01 11/25/24 09:01 Narrative: Constitutional: Appears comfortable and not in distress HEENT: No pallor or Jaundice Cardiovascular: RRR, normal S1-S2, no gallop or rub, No JVD Respiratory: Good bilateral air entry no wheezing or crackles Gastrointestinal: Soft, non tender, positive bowel sounds Extremities: No edema Skin: No rashes or bruises Musculoskeletal: No joints swellings or inflammation Neurology: Awake, alert, oriented ?3, No focal motor or sensory deficits Psych: Normal mood and affect Objective Intake and Output I&O: Intake & Output 11/22/24 11/23/24 11/24/24 11/25/24 23:59 23:59 23:59 23:59 Intake Total 650 / 650 2170 / 2170 Output Total 1700 / 1700 925 / 925 Balance 650 / 650 470 / 470 -925 / -925 Weight 60 kg 60 kg 60.2 kg Meds and Allergies Meds: Active Medications Hydrocodone Bitart/Acetaminophen (Hydrocodone/Acetaminophen 7.5-325mg Tablet) 1tab PO Q8HR PRN PRN Reason: PRN PAIN Last Admin: 11/25/24 06:48 Dose: 1 tab Amlodipine Besylate (Amlodipine 10 Mg Tablet) 10 mg PO DAILY [facility] Stop: 11/24/25 08:59 Last Admin: 11/25/24 09:10 Dose: Not Given Atorvastatin Calcium (Atorvastatin 20 Mg Tablet) 20 mg PO DAILY [facility] Stop: 11/24/25 08:59 Last Admin: 11/25/24 09:02 Dose: 20 mg Dextrose (Dextrose 50% In Water 25 Gm/50 Ml Syringe) 0 gm IV-PUSH PRN PRN PRN Reason: Hypoglycemia Stop: 11/24/25 02:41 Ergocalciferol (Ergocalciferol 1,250 Mcg (50,000 Units) Capsule) 1,250 mcg PO Mo@0900 [facility] Stop: 12/02/25 08:59 Ferrous Sulfate (Ferrous Sulfate 324 Mg Tablet.Dr) 324 mg PO DAILY [facility] Stop: 11/24/25 08:59 Last Admin: 11/25/24 09:02 Dose: 324 mg Fluticasone Propionate (Fluticasone Propionate Muddy 120 Muddy/16 Gm Bottle) 2 spray INTRANASAL DAILY PRN PRN Reason: nasal congestion Stop: 11/23/25 18:54 Glucose (Dextrose 40% Gel 15 Gm Tube) 0 gm PO PRN PRN PRN Reason: Hypoglycemia Stop: 11/24/25 02:41 Heparin Sodium (Porcine) (Heparin 5,000 Unit/Ml Vial) 5,000 unit SUBCUT Q12HR [facility] Stop: 11/23/25 20:59 Last Admin: 11/25/24 09:02 Dose: 5,000 unit Hydralazine HCl (Hydralazine 20 Mg/Ml Vial) 10 mg IV-PUSH Q6H PRN PRN Reason: if SBP > 185 Stop: 11/23/25 18:48 Last Admin: 11/24/24 11:05 Dose: 10 mg Sodium Bicarbonate 150 meq/ (Sterile Water) 1,150 mls @ 75 mls/hr IV .[id number] [facility] Stop: 11/23/25 18:59 Last Admin: 11/24/24 21:18 Dose: 75 mls/hr Ampicillin Sodium/Sulbactam Sodium (Unasyn) 3 gm in 100 mls @ 200 mls/hr IV Q12H [facility] Last Admin: 11/24/24 20:37 Dose: 200 mls/hr Insulin Aspart (Insulin Aspart 300 Units/3 Ml) 0 units SUBCUT TID.WITH.MEALS [facility]; Protocol Stop: 11/24/25 07:59 Last Admin: 11/25/24 09:11 Dose: Not Given Insulin Aspart (Insulin Aspart 300 Units/3 Ml) 0 units SUBCUT TID.WM.HS [facility]; Protocol Stop: 11/24/25 07:59 Last Admin: 11/25/24 09:11 Dose: Not Given Insulin Glargine (Insulin Glargine 300 Units/3 Ml Insuln.Pen) 28 units SUBCUT QHS [facility] Stop: 11/23/25 21:59 Last Admin: 11/24/24 21:59 Dose: 28 units Loratadine (Loratadine 10 Mg Tablet) 10 mg PO DAILY PRN PRN Reason: allergy symptoms Stop: 11/23/25 20:59 Metoprolol Succinate (Metoprolol Succinate 50 Mg Tab.Er.24h) 50 mg PO DAILY [facility] Stop: 11/25/25 08:59 Last Admin: 11/25/24 09:03 Dose: Not Given Nitroglycerin (Nitroglycerin 0.4 Mg Tab.Subl) 0.4 mg SUBLINGUAL Q5M PRN PRN Reason: chest pain Stop: 11/23/25 18:54 Ondansetron HCl (Ondansetron Odt 4 Mg Tab.Rapdis) 4 mg PO Q8HR PRN PRN Reason: nausea and vomiting Stop: 11/23/25 18:54 Pantoprazole Sodium (Pantoprazole 40 Mg Tablet.Dr) 40 mg PO DAILY [facility] Stop: 11/24/25 08:59 Last Admin: 11/25/24 09:02 Dose: 40 mg Pregabalin (Pregabalin 150 Mg Capsule) 150 mg PO Q8HR [facility] Stop: 05/22/25 21:59 Last Admin: 11/25/24 06:47 Dose: 150 mg Sodium Chloride (Sodium Chloride 0.9 % 10 Ml Syringe) 0 ml IV-PUSH PRN PRN PRN Reason: Flush Stop: 11/23/25 15:07 Sodium Chloride (Sodium Chloride 0.9 % 10 Ml Syringe) 10 ml IV-PUSH Q8H [facility] Stop: 11/23/25 18:14 Last Admin: 11/25/24 01:37 Dose: Not Given Sodium Chloride (Sodium Chloride 0.9 % 10 Ml Syringe) 0 ml IV-PUSH PRN PRN PRN Reason: Flush Stop: 11/24/25 10:08 Last Admin: 11/25/24 10:37 Dose: 30 ml Allergies latex Allergy (Unknown, Verified 11/23/24 15:08) Unresponsive Results - Nephrology Labs 11/24/24 05:14 11/25/24 09:39 Labs: 11/25/24 09:39 BUN 47 H Creatinine 2.22 H Phosphorus 3.1 Albumin 3.2 L Radiology Impressions Impressions - last 24 hours: Impressions Foot X-Ray 11/24/24 12:57 IMPRESSION: Interval removal of the metallic foreign body. No residual foreign body identified. Residual soft tissue swelling noted. Impression dictated by: Raf Potter M.D.11/24/2024 2:48 PM Dictation Location: [place] [address] Any impression(s) listed above is documentation that was entered by the reading physician into a diagnostic report(s) for Aislinn Wheeler. I have reviewed the report(s) and am incorporating any findings in the treatment plan of this patient where applicable. A&P - Nephrology Assessment/Plan (1) Acute kidney injury superimposed on CKD: Assessment/Problem Details: She has an ANATOLIY due to the urinary retention. She has a good urine output after Valerio catheter placement. Serum creatinine is now turning down with improvementof hyperkalemia and acidosis. (2) Hyperkalemia: Assessment/Problem Details: Resolved with Lokelma and IV bicarbonate. (3) CKD stage 3b, GFR 30-44 ml/min: Assessment/Problem Details: She has a CKD due to the longstanding DM and HTN. Her renal function has been declining due to progression of the CKD in setting of recurrent ANATOLIY's. (4) Hydroureteronephrosis: Assessment/Problem Details: She has bilateral hydronephrosis due to the neurogenic bladder. She follows with the urology outpatient at [facility]. (5) Neurogenic bladder: Assessment/Problem Details: She has a neurogenic bladder and was seen by the urology at [facility]. She was recommended to have a surgical intervention but opted against this. She is referred to now urogynecologist at [facility] for second opinion. (6) Diabetes: Assessment/Problem Details: She has insulin-dependent type 2 diabetes mellitus and takes insulin glargine athome. Hemoglobin A1c was as high as 14% however recently did improve down to 9%. (7) Hypertension: Assessment/Problem Details: Her blood pressure is high. She takes amlodipine, metoprolol and Lasix at home. Plan * Blood pressure still elevated. Will stop IV fluid as acidosis and hyperkalemia has resolved. * Home furosemide still on hold, will continue to observe as she may develop postobstructive diuresis. * Continue current dose of amlodipine and metoprolol. Will restart furosemide later if blood pressure continue to be elevated. Will assess for the addition of TIMBO inhibitor, angiotensin III blockers, MRA and and SGL 2 inhibitor after stabilization and improvement of renal function. * Continue insulin adjust the dose as needed to keep the blood sugar between 100 to 150 mg/dL * Monitor daily intake, output and renal panel * Patient is being evaluated by cardiology and she is going to have Cardiolite stress test before discharge. Documented By: Akin Dougherty MD 11/25/24 1233 Signed By: <Electronically signed by MD Akin Dougherty> 11/25/24 1248 [facility] Work Phone: 1([phone]) 992-582404-07-2025 [place] [address] Nephrology Progress Note Signed Patient: Aislinn Wheeler MR#: [id number] : 1960 Acct:[id number] Age/Sex: 64 / F Adm Date: 5 Loc: 3T Room: 9G5363-0 Type: ADM IN Attending Dr: Demian Dorantes MD Copies to: ~ Date of Service: 11/25/2024 Subjective Subjective Narrative: This is a 64-year-old female with a medical see of CKD, DM, HTN, HLD, bilateral hydronephrosis withneurogenic bladder, secondary hyperparathyroidism and anemiawho was advised by the PCP to go to theemergency room for hyperkalemia and worsening renal function. Patient has a neurogenic bladder and currently self catheterize herself. She was initially following with Dr. Lisa aguilera andwas given a few detox injection but has no improvement. [facility] reported that she was advised to have a major surgery that she opted against it. She reported now she is referred to the [facility] by her PCP. Patient has a CKD due to longstanding DM and HTN and follows with Dr. Sprague inoutpatient clinic. Patient was admitted for similar reason in August 2024. Onpresentation emergency room patient was found to have hyperkalemia with serum potassium 5.5 mmol/L, abnormal renal function with elevated creatinine to 2.6 mg/dL and metabolic acidosis. Patient was given Lokelma I will start him IV sodium bicarbonate drip by nephrology. She also had CT abdomen pelvis done which showed severe bilateral hydronephrosis with more pronounced bladder distention. Patient had a Valerio catheter placement in the emergency room and has good urine output. Interval history: Patient has good urine output 1.12 mL/kg/h after insertion of Valerio catheter last night. Renal function slowly improving with creatinine down to 2.2 mg/dL with better potassium 4.8 and carbon oxide up to 28.6 mL. Patient is undergoing cardiac nuclear stress test as she has ST-T wave changes on admission.. She was supposed to have cardiac cath before however it was postponed because of elevated serum creatinine. Exam Physical Exam Vital Signs: Temp Pulse Resp BP Pulse Ox O2 Del Method 36.6 C 73 16 205/89 H 98 Room Air 11/25/24 09:01 11/25/24 10:38 11/25/24 09:01 11/25/24 10:38 11/25/24 09:01 11/25/24 09:01 Narrative: Constitutional: Appears comfortable and not in distress HEENT: No pallor or Jaundice Cardiovascular: RRR, normal S1-S2, no gallop or rub, No JVD Respiratory: Good bilateral air entry no wheezing or crackles Gastrointestinal: Soft, non tender, positive bowel sounds Extremities: No edema Skin: No rashes or bruises Musculoskeletal: No joints swellings or inflammation Neurology: Awake, alert, oriented ?3, No focal motor or sensory deficits Psych: Normal mood and affect Objective Intake and Output I&O: Intake & Output 11/22/24 11/23/24 11/24/24 11/25/24 23:59 23:59 23:59 23:59 Intake Total 650 / 650 2170 / 2170 Output Total 1700 / 1700 925 / 925 Balance 650 / 650 470 / 470 -925 / -925 Weight 60 kg 60 kg 60.2 kg Meds and Allergies Meds: Active Medications Hydrocodone Bitart/Acetaminophen (Hydrocodone/Acetaminophen 7.5-325mg Tablet) 1tab PO Q8HR PRN PRN Reason: PRN PAIN Last Admin: 11/25/24 06:48 Dose: 1 tab Amlodipine Besylate (Amlodipine 10 Mg Tablet) 10 mg PO DAILY [facility] Stop: 11/24/25 08:59 Last Admin: 11/25/24 09:10 Dose: Not Given Atorvastatin Calcium (Atorvastatin 20 Mg Tablet) 20 mg PO DAILY [facility] Stop: 11/24/25 08:59 Last Admin: 11/25/24 09:02 Dose: 20 mg Dextrose (Dextrose 50% In Water 25 Gm/50 Ml Syringe) 0 gm IV-PUSH PRN PRN PRN Reason: Hypoglycemia Stop: 11/24/25 02:41 Ergocalciferol (Ergocalciferol 1,250 Mcg (50,000 Units) Capsule) 1,250 mcg PO Mo@0900 [facility] Stop: 12/02/25 08:59 Ferrous Sulfate (Ferrous Sulfate 324 Mg Tablet.Dr) 324 mg PO DAILY [facility] Stop: 11/24/25 08:59 Last Admin: 11/25/24 09:02 Dose: 324 mg Fluticasone Propionate (Fluticasone Propionate Muddy 120 Muddy/16 Gm Bottle) 2 spray INTRANASAL DAILY PRN PRN Reason: nasal congestion Stop: 11/23/25 18:54 Glucose (Dextrose 40% Gel 15 Gm Tube) 0 gm PO PRN PRN PRN Reason: Hypoglycemia Stop: 11/24/25 02:41 Heparin Sodium (Porcine) (Heparin 5,000 Unit/Ml Vial) 5,000 unit SUBCUT Q12HR [facility] Stop: 11/23/25 20:59 Last Admin: 11/25/24 09:02 Dose: 5,000 unit Hydralazine HCl (Hydralazine 20 Mg/Ml Vial) 10 mg IV-PUSH Q6H PRN PRN Reason: if SBP > 185 Stop: 11/23/25 18:48 Last Admin: 11/24/24 11:05 Dose: 10 mg Sodium Bicarbonate 150 meq/ (Sterile Water) 1,150 mls @ 75 mls/hr IV .[id number] [facility] Stop: 11/23/25 18:59 Last Admin: 11/24/24 21:18 Dose: 75 mls/hr Ampicillin Sodium/Sulbactam Sodium (Unasyn) 3 gm in 100 mls @ 200 mls/hr IV Q12H [facility] Last Admin: 11/24/24 20:37 Dose: 200 mls/hr Insulin Aspart (Insulin Aspart 300 Units/3 Ml) 0 units SUBCUT TID.WITH.MEALS [facility]; Protocol Stop: 11/24/25 07:59 Last Admin: 11/25/24 09:11 Dose: Not Given Insulin Aspart (Insulin Aspart 300 Units/3 Ml) 0 units SUBCUT TID.WM.HS [facility]; Protocol Stop: 11/24/25 07:59 Last Admin: 11/25/24 09:11 Dose: Not Given Insulin Glargine (Insulin Glargine 300 Units/3 Ml Insuln.Pen) 28 units SUBCUT QHS [facility] Stop: 11/23/25 21:59 Last Admin: 11/24/24 21:59 Dose: 28 units Loratadine (Loratadine 10 Mg Tablet) 10 mg PO DAILY PRN PRN Reason: allergy symptoms Stop: 11/23/25 20:59 Metoprolol Succinate (Metoprolol Succinate 50 Mg Tab.Er.24h) 50 mg PO DAILY [facility] Stop: 11/25/25 08:59 Last Admin: 11/25/24 09:03 Dose: Not Given Nitroglycerin (Nitroglycerin 0.4 Mg Tab.Subl) 0.4 mg SUBLINGUAL Q5M PRN PRN Reason: chest pain Stop: 11/23/25 18:54 Ondansetron HCl (Ondansetron Odt 4 Mg Tab.Rapdis) 4 mg PO Q8HR PRN PRN Reason: nausea and vomiting Stop: 11/23/25 18:54 Pantoprazole Sodium (Pantoprazole 40 Mg Tablet.Dr) 40 mg PO DAILY [facility] Stop: 11/24/25 08:59 Last Admin: 11/25/24 09:02 Dose: 40 mg Pregabalin (Pregabalin 150 Mg Capsule) 150 mg PO Q8HR [facility] Stop: 05/22/25 21:59 Last Admin: 11/25/24 06:47 Dose: 150 mg Sodium Chloride (Sodium Chloride 0.9 % 10 Ml Syringe) 0 ml IV-PUSH PRN PRN PRN Reason: Flush Stop: 11/23/25 15:07 Sodium Chloride (Sodium Chloride 0.9 % 10 Ml Syringe) 10 ml IV-PUSH Q8H [facility] Stop: 11/23/25 18:14 Last Admin: 11/25/24 01:37 Dose: Not Given Sodium Chloride (Sodium Chloride 0.9 % 10 Ml Syringe) 0 ml IV-PUSH PRN PRN PRN Reason: Flush Stop: 11/24/25 10:08 Last Admin: 11/25/24 10:37 Dose: 30 ml Allergies latex Allergy (Unknown, Verified 11/23/24 15:08) Unresponsive Results - Nephrology Labs 11/24/24 05:14 11/25/24 09:39 Labs: 11/25/24 09:39 BUN 47 H Creatinine 2.22 H Phosphorus 3.1 Albumin 3.2 L Radiology Impressions Impressions - last 24 hours: Impressions Foot X-Ray 11/24/24 12:57 IMPRESSION: Interval removal of the metallic foreign body. No residual foreign body identified. Residual soft tissue swelling noted. Impression dictated by: Raf Potter M.D.11/24/2024 2:48 PM Dictation Location: [place] [address] Any impression(s) listed above is documentation that was entered by the reading physician into a diagnostic report(s) for Aislinn Wheeler. I have reviewed the report(s) and am incorporating any findings in the treatment plan of this patient where applicable. A&P - Nephrology Assessment/Plan (1) Acute kidney injury superimposed on CKD: Assessment/Problem Details: She has an ANATOLIY due to the urinary retention. She has a good urine output after Valerio catheter placement. Serum creatinine is now turning down with improvementof hyperkalemia and acidosis. (2) Hyperkalemia: Assessment/Problem Details: Resolved with Lokelma and IV bicarbonate. (3) CKD stage 3b, GFR 30-44 ml/min: Assessment/Problem Details: She has a CKD due to the longstanding DM and HTN. Her renal function has been declining due to progression of the CKD in setting of recurrent ANATOLIY's. (4) Hydroureteronephrosis: Assessment/Problem Details: She has bilateral hydronephrosis due to the neurogenic bladder. She follows with the urology outpatient at [facility]. (5) Neurogenic bladder: Assessment/Problem Details: She has a neurogenic bladder and was seen by the urology at [facility]. She was recommended to have a surgical intervention but opted against this. She is referred to now urogynecologist at [facility] for second opinion. (6) Diabetes: Assessment/Problem Details: She has insulin-dependent type 2 diabetes mellitus and takes insulin glargine athome. Hemoglobin A1c was as high as 14% however recently did improve down to 9%. (7) Hypertension: Assessment/Problem Details: Her blood pressure is high. She takes amlodipine, metoprolol and Lasix at home. Plan * Blood pressure still elevated. Will stop IV fluid as acidosis and hyperkalemia has resolved. * Home furosemide still on hold, will continue to observe as she may develop postobstructive diuresis. * Continue current dose of amlodipine and metoprolol. Will restart furosemide later if blood pressure continue to be elevated. Will assess for the addition of TIMBO inhibitor, angiotensin III blockers,MRA and and SGL 2 inhibitor after stabilization and improvement of renal function. * Continue insulin adjust the dose as needed to keep the blood sugar between 100 to 150 mg/dL * Monitor daily intake, output and renal panel * Patient is being evaluated by cardiology and she is going to have Cardiolite stress test before discharge. Documented By: Akin Dougherty MD 11/25/24 1233 Signed By: 11/25/24 1242 [facility]04-06-2025 History and physical note Author Diane Smith [facility] Note Date/Time November 24, 2024 5:58 pm [facility] [address] [place] [address] Hospitalist H&P Signed Patient: Aislinn Wheeler MR#: [id number] : 1960 Acct:[id number] Age/Sex: 64 / F Adm Date: 5 Loc: Room: [address] [place] [address] Type: ADM IN Attending Dr: Diane Smith MD Copies to: Agusto Olmstead, [employer]TER OPERATOR-C Diane Smith MD~ HPI DATE OF EXAMINATION: 11/23/24 CHIEF COMPLAINT: Called from PCP to come for further workup HISTORY OF PRESENT ILLNESS: This is a 64 y.o female with past medical history of type 2 diabetes with nephropathy and neuropathy, CKD Stage IV, low capacity overactive bladder with straight cathing twice a day, follows with [facility] urology and was seenby our urology service on her last admission in August 2024 HTN, RLS, fibromylagia, Lupus?, RA here for multiple complaints, but mainly after being called by her PCP to come to the ED due to worsening renal function and K of 5.9 . Pt reports that over the last week, she has been getting less urine when she tries to straight cath herself, as she used to get more urine prior to last week. She did not take any motrin, naproxen, alleve prior to those symptoms. Shedenies any fever but complains of nausea, no vomiting. She also has bilateral flank pain. She mentions having chest pains, sharp and pressure like in nature over the last month or 2, at rest or with exertion. She denies any palpitations or syncope. Also pt has a needle in her right foot stuck there, Dr. Chilel Hold Worker could not remove it in the office, so she was scheduled for a procedure on Monday. She came to the ED, with elevated SBP in 200s, but no tachypneic or tachycardic. Her oxygen saturation was normal on room air. Patient was not in acute distress on my encounter. Labs in the ED showed potassium of 5.5 with BUN of 55 and creatinine of 2.62 which is actually better than her last creatinine which was on August 2024 showing creatinine of 3.08. She had bicarb of 20 but no anion gap. BNP was 126 slightly high but the patient was not overloaded on exam. Troponin was 6, EKG did show some T wave inversion however to me it appears more of repolarization/LVH changes. CBC showed hemoglobin of 10.7 with a MCV of 78 consistent with her stable microcyticanemia. INR was 0.9. UA was mildly positive with leukocyte Estrace positive but no bacteria. Chest x-ray showed cardiomegaly. But no infiltrates or effusion. In the ED, patient received 1 dose of calcium gluconate 1 g, 1 dose of ceftriaxone 1 g IV once. Also patient received 500 mL bolus of NS in the ED. Also 1 dose of hydralazine 20 mg for her blood pressure IV push. 1 dose of Lokelma 5 g p.o. once as well as 1 dose of insulin regular IV 10 units followed by D50 percent. Patient will be admitted under hospitalist service for further workup and management. Review of Systems Review of Systems All other systems reviewed & are negative unless noted below or in HPI [facility] Medical History Hypertension CKD (chronic kidney disease) Restless leg Fibromyalgia Rheumatoid arthritis Lupus Diabetes Family History Brother Heart disease Legacy FamHx Relation: Brother(s) Hypertension Legacy FamHx Relation: Brother(s) Father Heart disease Diabetes Hypertension Cancer Legacy FamHx Problem: Diagnosed with Cancer Mother Heart disease History of stroke Legacy FamHx Problem: Diagnosed with Stroke Son Heart disease Sister Hypertension Diabetes Heart disease Social History Smoking Status: Never smoker Substance Use Type: None Meds Medications and Allergies Allergies latex Allergy (Unknown, Verified 11/23/24 15:08) Unresponsive Home Medications cetirizine 10 mg tablet 10 mg PO DAILY PRN allergy symptoms 06/05/24 [History Confirmed 11/23/24] ferrous sulfate 325 mg (65 mg iron) tablet 325 mg PO DAILY 06/05/24 [History Confirmed 11/23/24] fluticasone propionate 50 mcg/actuation nasal spray,suspension 2 spray intranasal DAILY PRN nasal congestion 09/04/24 [History Confirmed 11/23/24] hydrocodone 7.5 mg-acetaminophen 325 mg tablet 1 tab PO Q8HR 09/04/24 [History Confirmed 11/23/24] metoprolol succinate 50 mg tablet,extended release 24 hr 50 mg PO DAILY 09/04/24[History Confirmed 11/23/24] pregabalin 150 mg capsule 150 mg PO Q8HR 09/04/24 [History Confirmed 11/23/24] atorvastatin 20 mg tablet 20 mg PO DAILY 09/06/24 [History Confirmed 11/23/24] insulin glargine 100 unit/mL (3 mL) subcutaneous pen (Lantus Solostar U-100 Insulin) 28 unit subcut QHS 09/06/24 [History Confirmed 11/23/24] insulin lispro 100 unit/mL subcutaneous cartridge 1 sliding scale dose subcut AC09/06/24 [History Confirmed 11/23/24] nitroglycerin 0.4 mg sublingual tablet 0.4 mg sublingual Q5M PRN chest pain 09/06/24 [History Confirmed 11/23/24] amoxicillin 500 mg capsule 500 mg PO TID 3 days #9 caps 09/08/24 [Rx Confirmed 11/23/24] cyanocobalamin (vitamin B-12) 1,000 mcg capsule 1,000 mcg PO DAILY #90 caps 09/08/24 [Rx Confirmed 11/23/24] ergocalciferol (vitamin D2) 1,250 mcg (50,000 unit) capsule 1,250 mcg PO QWEEK 2months #9 caps 09/08/24 [Rx Confirmed 11/23/24] furosemide 40 mg tablet 40 mg PO BID@0800,1600 30 days #60 tabs 09/08/24 [Rx Confirmed 11/23/24] amlodipine 5 mg tablet 5 mg PO DAILY 11/23/24 [History Confirmed 11/23/24] Exam Physical Exam Vital Signs: Temp Pulse Resp BP Pulse Ox O2 Del Method 98.1 F 62 18 215/99 H 96 Room Air 11/23/24 15:12 11/23/24 17:38 11/23/24 17:38 11/23/24 17:38 11/23/24 17:38 11/23/24 17:38 Narrative: Constitutional: Appears comfortable and not in distress, pleasant, ill appearing, lying in bed, conversant, folowing commands HEENT: No pallor or Jaundice Cardiovascular: RRR, normal S1-S2, no gallop or rub, No JVD Respiratory: Good bilateral air entry no wheezing or crackles Gastrointestinal: Soft, non tender, positive bowel sounds Extremities: No edema She has gangrenous change in the sole of the foot, at the level of her 5th toe, no pain likely due to her neuropathy, no erythema or discharge from the area Skin: No rashes or bruises Musculoskeletal: No joints swellings or inflammation Neurology: Awake, alert, oriented ?3, No focal motor or sensory deficits Results - Hospitalist H&P Lab Results Labs: Laboratory Last Values Corrected WBC 6.4 X10E3/uL (3.8-11.6) 11/23/24 16:51 Uncorrected WBC Count 6.4 x10E3/uL (3.8-11.6) 11/23/24 16:51 RBC 4.02 x10E6/uL (3.60-5.00) 11/23/24 16:51 Hgb 10.7 g/dL (11.8-15.4) L 11/23/24 16:51 Hct 31.5 % (34.0-46.4) L 11/23/24 16:51 MCV 78.3 fl (80-100) L 11/23/24 16:51 MCH 26.5 pg (24.7-34.3) 11/23/24 16:51 MCHC 33.8 g/dL (32.0-35.0) 11/23/24 16:51 RDW 13.7 % (11.9-15.3) 11/23/24 16:51 Plt Count 279 x10E3/uL (150-450) 11/23/24 16:51 MPV 8.9 fl (6.3-10.7) 11/23/24 16:51 Neut % (Auto) 51.8 % (.) 11/23/24 16:51 Lymph % (Auto) 37.2 % (.) 11/23/24 16:51 Dewey % (Auto) 6.9 % (.) 11/23/24 16:51 Eos % (Auto) 3.1 % (.) 11/23/24 16:51 Baso % (Auto) 1.0 % (.) 11/23/24 16:51 Nucleat RBC Rel Count 0.1 /100 WBC (0-0.5) 11/23/24 16:51 Neut # (Auto) 3.3 x10E3/uL (1.8-7.7) 11/23/24 16:51 Lymph # (Auto) 2.4 x10E3/uL (1.00-4.8) 11/23/24 16:51 Dewey # (Auto) 0.4 x10E3/uL (0.0-0.8) 11/23/24 16:51 Eos # (Auto) 0.2 x10E3/uL (0.0-0.45) 11/23/24 16:51 Baso # (Auto) 0.1 x10E3/uL (0.0-0.2) 11/23/24 16:51 Monocyte Dist Width 18.48 % (0.00-20.00) 11/23/24 16:51 PT 10.6 Seconds (9.0-12.9) 11/23/24 16:51 INR 0.9 11/23/24 16:51 PHA Creatinine Clear 17.13 11/23/24 16:51 Sodium 135 mmol/L (136-145) L 11/23/24 16:51 Potassium 5.5 mmol/L (3.5-5.1) H 11/23/24 16:51 Chloride 107 mmol/L (98-107) 11/23/24 16:51 Carbon Dioxide 20.4 mmol/L (21.0-31.0) L 11/23/24 16:51 Anion Gap 13.1 mEq/L (6.0-15.0) 11/23/24 16:51 BUN 55 mg/dL (7-25) H 11/23/24 16:51 Creatinine 2.62 mg/dL (0.60-1.20) H 11/23/24 16:51 Est GFR (CKD-EPI) 19.560 mL/Min 11/23/24 16:51 Glucose 190 mg/dL (70-100) H 11/23/24 16:51 Calcium 8.8 mg/dL (8.6-10.3) 11/23/24 16:51 Magnesium 2.1 mg/dL (1.9-2.7) 11/23/24 16:51 Total Bilirubin 0.2 mg/dl (0.3-1.0) L 11/23/24 16:51 AST 17 U/L (13-39) 11/23/24 16:51 ALT 17 U/L (7-52) 11/23/24 16:51 Alkaline Phosphatase 93 U/L (34-104) 11/23/24 16:51 Troponin I High Sens 6 ng/L (0-15) 11/23/24 16:51 B-Natriuretic Peptide 126.0 pg/mL (5-100) H 11/23/24 16:51 Total Protein 7.7 gm/dL (6.4-8.9) 11/23/24 16:51 Albumin 3.4 gm/dL (3.5-5.7) L 11/23/24 16:51 Globulin 4.3 gm/dL 11/23/24 16:51 Albumin/Globulin Ratio 0.8 11/23/24 16:51 Urine Color Colorless (Yellow) 11/23/24 16:11 Urine Appearance Clear (Clear) 11/23/24 16:11 Urine pH 6.0 (5.0-9.0) 11/23/24 16:11 Ur Specific [place] 1.010 (1.001-1.030) 11/23/24 16:11 Urine Protein 100 mg/dL (Negative) H 11/23/24 16:11 Urine Glucose (UA) 500 mg/dL (Normal) H 11/23/24 16:11 Urine Ketones Negative (Negative) 11/23/24 16:11 Urine Occult Blood Negative (Negative) 11/23/24 16:11 Urine Nitrite Negative (Negative) 11/23/24 16:11 Urine Bilirubin Negative (Negative) 11/23/24 16:11 Urine Urobilinogen Normal mg/dL (Normal) 11/23/24 16:11 Ur Leukocyte Esterase 2+ (Negative) H 11/23/24 16:11 Urine RBC 1-2 /HPF (0-4) 11/23/24 16:11 Urine WBC 5-9 /HPF (0-4) H 11/23/24 16:11 Ur Squamous Epith Cells 1-2 /HPF (0-2) 11/23/24 16:11 Urine Bacteria None seen /HPF (None Seen) 11/23/24 16:11 Hyaline Casts None /LPF (0-8) 11/23/24 16:11 Assessment & Plan Assessment/Plan (1) Neurogenic bladder: (2) Hyperkalemia: (3) CKD stage 3b, GFR 30-44 ml/min: (4) Anemia of renal disease: (5) Hypertensive emergency: (6) Hydroureteronephrosis: (7) Overactive bladder: Plan Hyperkalemia in the setting of CKD stage III-IV, likely in the setting of obstructive uropathy from chronic urinary retention secondary to Complicated Urologic history and OAB Hypertensive emergency Intermittent chest pain, likely Stable angina (currently chest pain free and troponin is flat) Non-specific T wave abnormality, No apparent ANATOLIY -Admit pt to medical floor with telemetry, check BP after Hydralazine IV, and will start her oral medications today -If still elevated will start pt on nicradipine drip -Repeat K at 9 pm -Spoke to Dr. Mcmullen, Cardiology operations agent, showed him the EKG x1 that was done, states that there is T wave abnormality but not necessarily Ischemic in etiology, Recommended getting another trop and EKG for now, probably will get a stress test during this admission -Obtain echo -Obtain repeat Trop and EKG STAT while in the ED -Vital signs q1-2 hours -Keep Hydralazine 10 mg q6 hours PRN -I am okay with BP around 150-160 SBP, to avoid worsening renal function from hypotension -PT/OT eval -Consult podiatry to see if attempts can be made at bedside to remove the needlewhile she is here -Obtain right foot xray and will start unasyn to cover any possible superimposedinfection, will order ESR and CRP as well -Given pt's complicated Urologic history, ED spoke to Dr. Valencia, he was okay with pt being admitted here, and he will be on consult, did not recommend transferring the pt for urology service and recommended SOdium bicarbonate drip to be started in the ED, which the ED physician started already -I will hold her lasix for now, will give 1 dose of amlodipine 10 mg PO once, and will keep SBP around 160 to avoid profound hypotension -Pt agreeable for valerio insertion to monitor I/Os, I will place that now -Full code -HSQ for DVT PPx -Pantoprazole 40 mg PO daily for GI PPx -I discussed the plan of management with the pt, nursing team, and ED staff extensively Addendum: I then spoke to Dr. Valencia myself after I read the CTAP w/o contrast report showing: Minimally worsening severe B/L Hydroureteronephrosis compared toprior exam with bladder distension. I discussed the imaging results with him. Herecommended Valerio placement in the ED as he thinks if we relieve the bladder retention that would help her renal function. If placement of the valerio in the ED is not possible and needs urologic intervention, will need to transfer the ptout from our ED to a place where urology service is present. I communicated those findings to the nursing team in , who called the ED to tell them. I alsospoke to the ED physician taking over this patient's care. IP vs OBS Justification Based on differential dx, clinical care plan, and risk of adverse events, if untreated, in my clinical judgement this patient requires an acute care setting as: INPATIENT because of an expectation of an over 2 midnight stay. Estimated length of stay (# of days): 3 Time Spent With Patient (min): 75 Documented By: Diane Smith MD 11/23/24 6687 Signed By: <Electronically signed by Diane Smith MD> 11/24/24 175 [facility] Work Phone: [phone]) 736-945504-06-2025 Progress note Author Irena Schuster [facility] Note Date/Time November 24, 2024 5:58 pm [facility] [address] [place] [address] Hospitalist Progress Note Signed Patient: Aislinn Wheeler MR#: [id number] : 1960 Acct:[id number] Age/Sex: 64 / F Adm Date: 5 Loc: Room: [address] [place] [address] Type: ADM IN Attending Dr: Diane Smith MD Copies to: ~ Date of Service: 11/24/2024 Subjective Subjective Narrative: Seen and examined at bedside, no acute events overnight. Denies any chest pain,shortness of breath, on room air with SpO2 above 90%. No abdominal pain, nausea/vomiting. Remains afebrile. Valerio catheter draining clear yellow urine. Discussed plan of care with patient, agreeable. Exam Physical Exam Vital Signs: Temp Pulse Resp BP Pulse Ox O2 Del Method 97.5 F L 63 16 186/92 H 99 Room Air 11/24/24 08:00 11/24/24 08:00 11/24/24 08:00 11/24/24 08:00 11/24/24 08:00 11/24/24 08:00 Narrative: CONST- Appears well -developed and well nourished, alert, comfortable, cooperative CARDIAC?normal rate, regular rhythm, normal S1 & S2. PULM?CTA bilaterally, RA, no accessory muscle use or cough noted ABD ? Soft. Bowel sounds are normal. No distention No tenderness EXTREM?no edema BLE calves nontender SKIN?right foot dressing intact Objective Lab Results 11/24/24 05:14 11/24/24 05:14 Meds Allergies and Active Meds Allergies latex Allergy (Unknown, Verified 11/23/24 15:08) Unresponsive Active Meds: Active Medications Generic Name Dose Route Start Last Admin Trade Name Freq PRN Reason Stop Dose Admin Hydrocodone Bitart/Acetaminophen 1 tab 11/23/24 22:00 11/24/24 06:48 Hydrocodone/Acetaminophen 7.5-325mg Tablet PO 1 tab Q8HR PRN Administration PRN PAIN Amlodipine Besylate 10 mg 11/24/24 09:00 11/24/24 09:21 Amlodipine 10 Mg Tablet PO 11/24/25 08:59 10 mg DAILY UZIEL Administration Atorvastatin Calcium 20 mg 11/24/24 09:00 11/24/24 09:21 Atorvastatin 20 Mg Tablet PO 11/24/25 08:59 20 mg DAILY UZIEL Administration Dextrose 0 gm 11/24/24 02:42 Dextrose 50% In Water 25 Gm/50 Ml Syringe IV-PUSH 11/24/25 02:41 PRN PRN Hypoglycemia Ergocalciferol 1,250 mcg 12/02/24 09:00 Ergocalciferol 1,250 Mcg (50,000 Units) Capsule PO 12/02/25 08:59 Mo@0900 UZIEL Ferrous Sulfate 324 mg 11/24/24 09:00 11/24/24 09:21 Ferrous Sulfate 324 Mg Tablet. PO 11/24/25 08:59 324 mg DAILY UZIEL Administration Fluticasone Propionate 2 spray 11/23/24 18:55 Fluticasone Propionate Muddy 120 Muddy/16 Gm Bottle INTRANASAL 11/23/25 18:54 DAILY PRN nasal congestion Glucose 0 gm 11/24/24 02:42 Dextrose 40% Gel 15 Gm Tube PO 11/24/25 02:41 PRN PRN Hypoglycemia Heparin Sodium (Porcine) 5,000 unit 11/23/24 21:00 11/24/24 09:21 Heparin 5,000 Unit/Ml Vial SUBCUT 11/23/25 20:59 5,000 unit Q12HR UZIEL Administration Hydralazine HCl 10 mg 11/23/24 18:49 Hydralazine 20 Mg/Ml Vial IV-PUSH 11/23/25 18:48 Q6H PRN if SBP > 185 Sodium Bicarbonate 150 meq/ 1,150 mls @ 75 mls/hr 11/23/24 19:00 11/23/24 23:10 Sterile Water IV 11/23/25 18:59 75 mls/hr .[id number] UZIEL Administration Ampicillin Sodium/Sulbactam Sodium 3 gm in 100 mls @ 200 mls/hr 11/23/24 20:30 11/23/24 23:10 Unasyn IV 200 mls/hr Q12H UZIEL Administration Insulin Aspart 0 units 11/24/24 08:00 Insulin Aspart 300 Units/3 Ml SUBCUT 11/24/25 07:59 TID.WITH.MEALS [facility] Protocol Insulin Aspart 0 units 11/24/24 08:00 Insulin Aspart 300 Units/3 Ml SUBCUT 11/24/25 07:59 TID.WM.HS [facility] Protocol Insulin Glargine 28 units 11/23/24 22:00 11/23/24 23:11 Insulin Glargine 300 Units/3 Ml Insuln.Pen SUBCUT 11/23/25 21:59 28 units QHS UZIEL Administration Loratadine 10 mg 11/23/24 21:00 Loratadine 10 Mg Tablet PO 11/23/25 20:59 DAILY PRN allergy symptoms Nitroglycerin 0.4 mg 11/23/24 18:55 Nitroglycerin 0.4 Mg Tab.Subl SUBLINGUAL 11/23/25 18:54 Q5M PRN chest pain Ondansetron HCl 4 mg 11/23/24 18:55 Ondansetron Odt 4 Mg Tab.Rapdis PO 11/23/25 18:54 Q8HR PRN nausea and vomiting Pantoprazole Sodium 40 mg 11/24/24 09:00 11/24/24 09:21 Pantoprazole 40 Mg Tablet.Dr PO 11/24/25 08:59 40 mg DAILY UZIEL Administration Pregabalin 150 mg 11/23/24 22:00 11/24/24 06:48 Pregabalin 150 Mg Capsule PO 05/22/25 21:59 150 mg Q8HR UZIEL Administration Sodium Chloride 0 ml 11/23/24 15:08 Sodium Chloride 0.9 % 10 Ml Syringe IV-PUSH 11/23/25 15:07 PRN PRN Flush Sodium Chloride 10 ml 11/23/24 18:15 11/24/24 07:05 Sodium Chloride 0.9 % 10 Ml Syringe IV-PUSH 11/23/25 18:14 Not Given Q8H UZIEL A&P - Hospitalist Assessment/Plan (1) Neurogenic bladder: (2) Hyperkalemia: (3) CKD stage 3b, GFR 30-44 ml/min: (4) Anemia of renal disease: (5) Hypertensive emergency: (6) Hydroureteronephrosis: (7) Overactive bladder: Plan 1. Acute kidney injury superimposed on CKD stage stage IIIb, due to urinary retention in the setting of bilateral hydronephrosis with neurogenic bladder 2. Hyperkalemia with metabolic acidosis?resolved 3. Hypertensive emergency?improved 4. Microcytic anemia * Creatinine 2.37, improved. Creatinine 2.6 on admission, baseline ~2.3 * Hemoglobin 10.1, stable baseline H&H~9-10, ferrous sulfate * Nephrology consulted, continue IV fluids, continue to hold home Lasix. Continue amlodipine and started on metoprolol, appreciate recommendations * Continue Valerio catheter, strict I's and O's, avoid nephrotoxins and renally dose medication * Monitor BMP and CBC 5.Intermittent chest pain, likely Stable angina (currently chest pain free and troponin is flat) Currently chest pain-free, with no shortness of breath. Blood pressure, has improved * EKG on admission with non-specific T wave abnormality, * Negative troponin x 3 * Cardiology consulted, plan is for Lexiscan which can be done outpatient, appreciate recommendations * Echocardiogram pending * Continue amlodipine and IV hydralazine every 6 hours as needed 6.Foreign body in right foot?stepped on a needle, history of neuropathy * Continue antibiotics with Unasyn * ESR and CPR elevated * Podiatry consulted to see if attempts can be made at bedside to remove the needle while she is here * Right foot x-ray showing 7 mm radiopaque foreign body * Continue pain medication as needed Type 2 diabetes * Continue Accu-Cheks AC and at bedtime, Lantus 28 units nightly,SSI, hypoglycemic protocol. Check A1c DVT prophylaxis, heparin GI prophylaxis?pantoprazole Documented By: Irena Schuster APRN 11/24/24 1010 Signed By: <Electronically signed by ASHVIN Schuster> 11/24/24 1300 <Electronically signed by Diane Smith MD> 11/24/24 9[address] [facility] Work Phone: [phone]) 632-865804-06-2025 [place] [address] Hospitalist H&P Signed Patient: Aislinn Wheeler MR#: [id number] : 1960 Acct:[id number] Age/Sex: 64 / F Adm Date: 5 Loc: Room: [address] [place] [address] Type: ADM IN Attending Dr: Diane Smith MD Copies to: Agusto Olmstead, CORN CUTTER OPERATOR-C Diane Smiht MD~ HPI DATE OF EXAMINATION: 11/23/24 CHIEF COMPLAINT: Called from PCP to come for further workup HISTORY OF PRESENT ILLNESS: This is a 64 y.o female with past medical history of type 2 diabetes with nephropathy and neuropathy, CKD Stage IV, low capacity overactive bladder with straight cathing twice a day, follows with [facility] urology and was seenby our urology service on her last admission in August 2024 HTN, RLS, fibromylagia, Lupus?, RA here for multiple complaints, but mainly after being called by her PCPto come to the ED due to worsening renal function and K of 5.9 . Pt reports that over the last week, she has been getting less urine when she tries to straight cath herself, as she used to get more urine prior to last week. She did not take any motrin, naproxen, alleve prior to those symptoms. Shedenies any fever but complains of nausea, no vomiting. She also has bilateral flank pain. She mentions having chest pains, sharp and pressure like in nature over the last month or 2, at rest or with exertion. She denies any palpitations or syncope. Also pt has a needle in her right foot stuck there,Dr. Chilel Hold Worker could not remove it in the office, so she was scheduled for a procedure on Monday. She came to the ED, with elevated SBP in 200s, but no tachypneic or tachycardic. Her oxygen saturation was normal on room air. Patient was not in acute distress on my encounter. Labs in the EDshowed potassium of 5.5 with BUN of 55 and creatinine of 2.62 which is actually better than her last creatinine which was on August 2024 showing creatinine of 3.08. She had bicarb of 20 but no aniongap. BNP was 126 slightly high but the patient was not overloaded on exam. Troponin was 6, EKG did show some T wave inversion however to me it appears more of repolarization/LVH changes. CBC showed hemoglobin of 10.7 with a MCV of 78 consistent with her stable microcyticanemia. INR was 0.9. UA was mildly positive with leukocyte Estrace positive but no bacteria. Chest x- ray showed cardiomegaly. But no infiltrates or effusion. In the ED, patient received 1 dose of calcium gluconate 1 g, 1 dose ofceftriaxone 1 g IV once. Also patient received 500 mL bolus of NS in the ED. Also 1 dose of hydralazine 20 mg for her blood pressure IV push. 1 dose of Lokelma 5 g p.o. once as well as 1 dose of insulin regular IV 10 units followed by D50 percent. Patient will be admitted under hospitalist service for further workup and management. Review of Systems Review of Systems All other systems reviewed & are negative unless noted below or in HPI [facility] Medical History Hypertension CKD (chronic kidney disease) Restless leg Fibromyalgia Rheumatoid arthritis Lupus Diabetes Family History Brother Heart disease Legacy FamHx Relation: Brother(s) Hypertension Legacy FamHx Relation: Brother(s) Father Heart disease Diabetes Hypertension Cancer Legacy FamHx Problem: Diagnosed with Cancer Mother Heart disease History of stroke Legacy FamHx Problem: Diagnosed with Stroke Son Heart disease Sister Hypertension Diabetes Heart disease Social History Smoking Status: Never smoker Substance Use Type: None Meds Medications and Allergies Allergies latex Allergy (Unknown, Verified 11/23/24 15:08) Unresponsive Home Medications cetirizine 10 mg tablet 10 mg PO DAILY PRN allergy symptoms 06/05/24 [History Confirmed 11/23/24] ferrous sulfate 325 mg (65 mg iron) tablet 325 mg PO DAILY 06/05/24 [History Confirmed 11/23/24] fluticasone propionate 50 mcg/actuation nasal spray,suspension 2 spray intranasal DAILY PRN nasal congestion 09/04/24 [History Confirmed 11/23/24] hydrocodone 7.5 mg-acetaminophen 325 mg tablet 1 tab PO Q8HR 09/04/24 [History Confirmed 11/23/24] metoprolol succinate 50 mg tablet,extended release 24 hr 50 mg PO DAILY 09/04/24[History Confirmed 11/23/24] pregabalin 150 mg capsule 150 mg PO Q8HR 09/04/24 [History Confirmed 11/23/24] atorvastatin 20 mg tablet 20 mg PO DAILY 09/06/24 [History Confirmed 11/23/24] insulin glargine 100 unit/mL (3 mL) subcutaneous pen (Lantus Solostar U-100 Insulin) 28 unit subcutQHS 09/06/24 [History Confirmed 11/23/24] insulin lispro 100 unit/mL subcutaneous cartridge 1 sliding scale dose subcut AC09/06/24 [History Confirmed 11/23/24] nitroglycerin 0.4 mg sublingual tablet 0.4 mg sublingual Q5M PRN chest pain 09/06/24 [History Confirmed 11/23/24] amoxicillin 500 mg capsule 500 mg PO TID 3 days #9 caps 09/08/24 [Rx Confirmed 11/23/24] cyanocobalamin (vitamin B-12) 1,000 mcg capsule 1,000 mcg PO DAILY #90 caps 09/08/24 [Rx Confirmed 11/23/24] ergocalciferol (vitamin D2) 1,250 mcg (50,000 unit) capsule 1,250 mcg PO QWEEK 2months #9 caps 09/08/24 [Rx Confirmed 11/23/24] furosemide 40 mg tablet 40 mg PO BID@0800,1600 30 days #60 tabs 09/08/24 [Rx Confirmed 11/23/24] amlodipine 5 mg tablet 5 mg PO DAILY 11/23/24 [History Confirmed 11/23/24] Exam Physical Exam Vital Signs: Temp Pulse Resp BP Pulse Ox O2 Del Method 98.1 F 62 18 215/99 H 96 Room Air 11/23/24 15:12 11/23/24 17:38 11/23/24 17:38 11/23/24 17:38 11/23/24 17:38 11/23/24 17:38 Narrative: Constitutional: Appears comfortable and not in distress, pleasant, ill appearing, lying in bed, conversant, folowing commands HEENT: No pallor or Jaundice Cardiovascular: RRR, normal S1-S2, no gallop or rub, No JVD Respiratory: Good bilateral air entry no wheezing or crackles Gastrointestinal: Soft, non tender, positive bowel sounds Extremities: No edema She has gangrenous change in the sole of the foot, at the level of her 5th toe, no pain likely due to her neuropathy, no erythema or discharge from the area Skin: No rashes or bruises Musculoskeletal: No joints swellings or inflammation Neurology: Awake, alert, oriented ?3, No focal motor or sensory deficits Results - Hospitalist H&P Lab Results Labs: Laboratory Last Values Corrected WBC 6.4 X10E3/uL (3.8-11.6) 11/23/24 16:51 Uncorrected WBC Count 6.4 x10E3/uL (3.8-11.6) 11/23/24 16:51 RBC 4.02 x10E6/uL (3.60-5.00) 11/23/24 16:51 Hgb 10.7 g/dL (11.8-15.4) L 11/23/24 16:51 Hct 31.5 % (34.0-46.4) L 11/23/24 16:51 MCV 78.3 fl (80-100) L 11/23/24 16:51 MCH 26.5 pg (24.7-34.3) 11/23/24 16:51 MCHC 33.8 g/dL (32.0-35.0) 11/23/24 16:51 RDW 13.7 % (11.9-15.3) 11/23/24 16:51 Plt Count 279 x10E3/uL (150-450) 11/23/24 16:51 MPV 8.9 fl (6.3-10.7) 11/23/24 16:51 Neut % (Auto) 51.8 % (.) 11/23/24 16:51 Lymph % (Auto) 37.2 % (.) 11/23/24 16:51 Dewey % (Auto) 6.9 % (.) 11/23/24 16:51 Eos % (Auto) 3.1 % (.) 11/23/24 16:51 Baso % (Auto) 1.0 % (.) 11/23/24 16:51 Nucleat RBC Rel Count 0.1 /100 WBC (0-0.5) 11/23/24 16:51 Neut # (Auto) 3.3 x10E3/uL (1.8-7.7) 11/23/24 16:51 Lymph # (Auto) 2.4 x10E3/uL (1.00-4.8) 11/23/24 16:51 Dewey # (Auto) 0.4 x10E3/uL (0.0-0.8) 11/23/24 16:51 Eos # (Auto) 0.2 x10E3/uL (0.0-0.45) 11/23/24 16:51 Baso # (Auto) 0.1 x10E3/uL (0.0-0.2) 11/23/24 16:51 Monocyte Dist Width 18.48 % (0.00-20.00) 11/23/24 16:51 PT 10.6 Seconds (9.0-12.9) 11/23/24 16:51 INR 0.9 11/23/24 16:51 PHA Creatinine Clear 17.13 11/23/24 16:51 Sodium 135 mmol/L (136-145) L 11/23/24 16:51 Potassium 5.5 mmol/L (3.5-5.1) H 11/23/24 16:51 Chloride 107 mmol/L (98-107) 11/23/24 16:51 Carbon Dioxide 20.4 mmol/L (21.0-31.0) L 11/23/24 16:51 Anion Gap 13.1 mEq/L (6.0-15.0) 11/23/24 16:51 BUN 55 mg/dL (7-25) H 11/23/24 16:51 Creatinine 2.62 mg/dL (0.60-1.20) H 11/23/24 16:51 Est GFR (CKD-EPI) 19.560 mL/Min 11/23/24 16:51 Glucose 190 mg/dL (70-100) H 11/23/24 16:51 Calcium 8.8 mg/dL (8.6-10.3) 11/23/24 16:51 Magnesium 2.1 mg/dL (1.9-2.7) 11/23/24 16:51 Total Bilirubin 0.2 mg/dl (0.3-1.0) L 11/23/24 16:51 AST 17 U/L (13-39) 11/23/24 16:51 ALT 17 U/L (7-52) 11/23/24 16:51 Alkaline Phosphatase 93 U/L (34-104) 11/23/24 16:51 Troponin I High Sens 6 ng/L (0-15) 11/23/24 16:51 B-Natriuretic Peptide 126.0 pg/mL (5-100) H 11/23/24 16:51 Total Protein 7.7 gm/dL (6.4-8.9) 11/23/24 16:51 Albumin 3.4 gm/dL (3.5-5.7) L 11/23/24 16:51 Globulin 4.3 gm/dL 11/23/24 16:51 Albumin/Globulin Ratio 0.8 11/23/24 16:51 Urine Color Colorless (Yellow) 11/23/24 16:11 Urine Appearance Clear (Clear) 11/23/24 16:11 Urine pH 6.0 (5.0-9.0) 11/23/24 16:11 Ur Specific [place] 1.010 (1.001-1.030) 11/23/24 16:11 Urine Protein 100 mg/dL (Negative) H 11/23/24 16:11 Urine Glucose (UA) 500 mg/dL (Normal) H 11/23/24 16:11 Urine Ketones Negative (Negative) 11/23/24 16:11 Urine Occult Blood Negative (Negative) 11/23/24 16:11 Urine Nitrite Negative (Negative) 11/23/24 16:11 Urine Bilirubin Negative (Negative) 11/23/24 16:11 Urine Urobilinogen Normal mg/dL (Normal) 11/23/24 16:11 Ur Leukocyte Esterase 2+ (Negative) H 11/23/24 16:11 Urine RBC 1-2 /HPF (0-4) 11/23/24 16:11 Urine WBC 5-9 /HPF (0-4) H 11/23/24 16:11 Ur Squamous Epith Cells 1-2 /HPF (0-2) 11/23/24 16:11 Urine Bacteria None seen /HPF (None Seen) 11/23/24 16:11 Hyaline Casts None /LPF (0-8) 11/23/24 16:11 Assessment & Plan Assessment/Plan (1) Neurogenic bladder: (2) Hyperkalemia: (3) CKD stage 3b, GFR 30-44 ml/min: (4) Anemia of renal disease: (5) Hypertensive emergency: (6) Hydroureteronephrosis: (7) Overactive bladder: Plan Hyperkalemia in the setting of CKD stage III-IV, likely in the setting of obstructive uropathy fromchronic urinary retention secondary to Complicated Urologic history and OAB Hypertensive emergency Intermittent chest pain, likely Stable angina (currently chest pain free and troponin is flat) Non-specific T wave abnormality, No apparent ANATOLIY -Admit pt to medical floor with telemetry, check BP after Hydralazine IV, and will start her oral medications today -If still elevated will start pt on nicradipine drip -Repeat K at 9 pm -Spoke to Dr. Mcmullen, Cardiology operations agent, showed him the EKG x1 that was done, states that there is T wave abnormality but not necessarily Ischemic in etiology, Recommended getting another trop and EKG for now, probably will get a stress test during this admission -Obtain echo -Obtain repeat Trop and EKG STAT while in the ED -Vital signs q1-2 hours -Keep Hydralazine 10 mg q6 hours PRN -I am okay with BP around 150-160 SBP, to avoid worsening renal function from hypotension -PT/OT eval -Consult podiatry to see if attempts can be made at bedside to remove the needlewhile she is here -Obtain right foot xray and will start unasyn to cover any possible superimposedinfection, will order ESR and CRP as well -Given pt's complicated Urologic history, ED spoke to Dr. Valencia, he was okay with pt being admittedhere, and he will be on consult, did not recommend transferring the pt for urology service and recommended SOdium bicarbonate drip to be started in the ED, which the ED physician started already -I will hold her lasix for now, will give 1 dose of amlodipine 10 mg PO once, and will keep SBP around 160 to avoid profound hypotension -Pt agreeable for valerio insertion to monitor I/Os, I will place that now -Full code -HSQ for DVT PPx -Pantoprazole 40 mg PO daily for GI PPx -I discussed the plan of management with the pt, nursing team, and ED staff extensively Addendum: I then spoke to Dr. Valencia myself after I read the CTAP w/o contrast report showing: Minimally worsening severe B/L Hydroureteronephrosis compared toprior exam with bladder distension. I discussed the imaging results with him. Herecommended Valerio placement in the ED as he thinks if we relieve the bladder retention that would help her renal function. If placement of the valerio in the ED isnot possible and needs urologic intervention, will need to transfer the ptout from our ED to a place where urology service is present. I communicated those findings to the nursing team in 3T, who called the ED to tell them. I alsospoke to the ED physician taking over this patient's care. IP vs OBS Justification Based on differential dx, clinical care plan, and risk of adverse events, if untreated, in my clinical judgement this patient requires an acute care setting as: INPATIENT because of an expectation ofan over 2 midnight stay. Estimated length of stay (# of days): 3 Time Spent With Patient (min): 75 Documented By: Diane Smith MD 11/23/24 1827 Signed By: 11/24/24 1758 [facility]04-06-2025 [place] [address] Hospitalist Progress Note Signed Patient: Aislinn Wheeler MR#: [id number] : 1960 Acct:[id number] Age/Sex: 64 / F Adm Date: 5 Loc: Room: [address] [place] [address] Type: ADM IN Attending Dr: Diane Smith MD Copies to: ~ Date of Service: 11/24/2024 Subjective Subjective Narrative: Seen and examined at bedside, no acute events overnight. Denies any chest pain,shortness of breath,on room air with SpO2 above 90%. No abdominal pain, nausea/vomiting. Remains afebrile. Valerio catheter draining clear yellow urine. Discussed plan of care with patient, agreeable. Exam Physical Exam Vital Signs: Temp Pulse Resp BP Pulse Ox O2 Del Method 97.5 F L 63 16 186/92 H 99 Room Air 11/24/24 08:00 11/24/24 08:00 11/24/24 08:00 11/24/24 08:00 11/24/24 08:00 11/24/24 08:00 Narrative: CONST- Appears well -developed and well nourished, alert, comfortable, cooperative CARDIAC?normal rate, regular rhythm, normal S1 & S2. PULM?CTA bilaterally, RA, no accessory muscle use or cough noted ABD ? Soft. Bowel sounds are normal. No distention No tenderness EXTREM?no edema BLE calves nontender SKIN?right foot dressing intact Objective Lab Results 11/24/24 05:14 11/24/24 05:14 Meds Allergies and Active Meds Allergies latex Allergy (Unknown, Verified 11/23/24 15:08) Unresponsive Active Meds: Active Medications Generic Name Dose Route Start Last Admin Trade Name Freq PRN Reason Stop Dose Admin Hydrocodone Bitart/Acetaminophen 1 tab 11/23/24 22:00 11/24/24 06:48 Hydrocodone/Acetaminophen 7.5-325mg Tablet PO 1 tab Q8HR PRN Administration PRN PAIN Amlodipine Besylate 10 mg 11/24/24 09:00 11/24/24 09:21 Amlodipine 10 Mg Tablet PO 11/24/25 08:59 10 mg DAILY UZIEL Administration Atorvastatin Calcium 20 mg 11/24/24 09:00 11/24/24 09:21 Atorvastatin 20 Mg Tablet PO 11/24/25 08:59 20 mg DAILY UZIEL Administration Dextrose 0 gm 11/24/24 02:42 Dextrose 50% In Water 25 Gm/50 Ml Syringe IV-PUSH 11/24/25 02:41 PRN PRN Hypoglycemia Ergocalciferol 1,250 mcg 12/02/24 09:00 Ergocalciferol 1,250 Mcg (50,000 Units) Capsule PO 12/02/25 08:59 Mo@0900 UZIEL Ferrous Sulfate 324 mg 11/24/24 09:00 11/24/24 09:21 Ferrous Sulfate 324 Mg Tablet. PO 11/24/25 08:59 324 mg DAILY UZIEL Administration Fluticasone Propionate 2 spray 11/23/24 18:55 Fluticasone Propionate Muddy 120 Muddy/16 Gm Bottle INTRANASAL 11/23/25 18:54 DAILY PRN nasal congestion Glucose 0 gm 11/24/24 02:42 Dextrose 40% Gel 15 Gm Tube PO 11/24/25 02:41 PRN PRN Hypoglycemia Heparin Sodium (Porcine) 5,000 unit 11/23/24 21:00 11/24/24 09:21 Heparin 5,000 Unit/Ml Vial SUBCUT 11/23/25 20:59 5,000 unit Q12HR UZIEL Administration Hydralazine HCl 10 mg 11/23/24 18:49 Hydralazine 20 Mg/Ml Vial IV-PUSH 11/23/25 18:48 Q6H PRN if SBP > 185 Sodium Bicarbonate 150 meq/ 1,150 mls @ 75 mls/hr 11/23/24 19:00 11/23/24 23:10 Sterile Water IV 11/23/25 18:59 75 mls/hr .[id number] UZIEL Administration Ampicillin Sodium/Sulbactam Sodium 3 gm in 100 mls @ 200 mls/hr 11/23/24 20:30 11/23/24 23:10 Unasyn IV 200 mls/hr Q12H UZIEL Administration Insulin Aspart 0 units 11/24/24 08:00 Insulin Aspart 300 Units/3 Ml SUBCUT 11/24/25 07:59 TID.WITH.MEALS [facility] Protocol Insulin Aspart 0 units 11/24/24 08:00 Insulin Aspart 300 Units/3 Ml SUBCUT 11/24/25 07:59 TID.WM.HS [facility] Protocol Insulin Glargine 28 units 11/23/24 22:00 11/23/24 23:11 Insulin Glargine 300 Units/3 Ml Insuln.Pen SUBCUT 11/23/25 21:59 28 units QHS UZIEL Administration Loratadine 10 mg 11/23/24 21:00 Loratadine 10 Mg Tablet PO 11/23/25 20:59 DAILY PRN allergy symptoms Nitroglycerin 0.4 mg 11/23/24 18:55 Nitroglycerin 0.4 Mg Tab.Subl SUBLINGUAL 11/23/25 18:54 Q5M PRN chest pain Ondansetron HCl 4 mg 11/23/24 18:55 Ondansetron Odt 4 Mg Tab.Rapdis PO 11/23/25 18:54 Q8HR PRN nausea and vomiting Pantoprazole Sodium 40 mg 11/24/24 09:00 11/24/24 09:21 Pantoprazole 40 Mg Tablet. PO 11/24/25 08:59 40 mg DAILY UZIEL Administration Pregabalin 150 mg 11/23/24 22:00 11/24/24 06:48 Pregabalin 150 Mg Capsule PO 05/22/25 21:59 150 mg Q8HR UZIEL Administration Sodium Chloride 0 ml 11/23/24 15:08 Sodium Chloride 0.9 % 10 Ml Syringe IV-PUSH 11/23/25 15:07 PRN PRN Flush Sodium Chloride 10 ml 11/23/24 18:15 11/24/24 07:05 Sodium Chloride 0.9 % 10 Ml Syringe IV-PUSH 11/23/25 18:14 Not Given Q8H UZIEL A&P - Hospitalist Assessment/Plan (1) Neurogenic bladder: (2) Hyperkalemia: (3) CKD stage 3b, GFR 30-44 ml/min: (4) Anemia of renal disease: (5) Hypertensive emergency: (6) Hydroureteronephrosis: (7) Overactive bladder: Plan 1. Acute kidney injury superimposed on CKD stage stage IIIb, due to urinary retention in the setting of bilateral hydronephrosis with neurogenic bladder 2. Hyperkalemia with metabolic acidosis?resolved 3. Hypertensive emergency?improved 4. Microcytic anemia * Creatinine 2.37, improved. Creatinine 2.6 on admission, baseline ~2.3 * Hemoglobin 10.1, stable baseline H&H~9-10, ferrous sulfate * Nephrology consulted, continue IV fluids, continue to hold home Lasix. Continue amlodipine and started on metoprolol, appreciate recommendations * Continue Valerio catheter, strict I's and O's, avoid nephrotoxins and renally dose medication * Monitor BMP and CBC 5.Intermittent chest pain, likely Stable angina (currently chest pain free and troponin is flat) Currently chest pain-free, with no shortness of breath. Blood pressure, has improved * EKG on admission with non-specific T wave abnormality, * Negative troponin x 3 * Cardiology consulted, plan is for Lexiscan which can be done outpatient, appreciate recommendations * Echocardiogram pending * Continue amlodipine and IV hydralazine every 6 hours as needed 6.Foreign body in right foot?stepped on a needle, history of neuropathy * Continue antibiotics with Unasyn * ESR and CPR elevated * Podiatry consulted to see if attempts can be made at bedside to remove the needle while she is here * Right foot x-ray showing 7 mm radiopaque foreign body * Continue pain medication as needed Type 2 diabetes * Continue Accu-Cheks AC and at bedtime, Lantus 28 units nightly,SSI, hypoglycemic protocol. Check A1c DVT prophylaxis, heparin GI prophylaxis?pantoprazole Documented By: Irena Schuster APRN 11/24/24 1010 Signed By: 11/24/24 1300 11/24/24 1758 [facility]04-06-2025 Consult note Author Galo Mcmullen [facility] Note Date/Time November 24, 2024 2:54 pm [facility] [address] [place] [address] Cardiology Consult Note Signed Patient: Aislinn Wheeler MR#: [id number] : 1960 Acct:[id number] Age/Sex: 64 / F Adm Date: 5 Loc: Room: [address] [place] [address] Type: ADM IN Attending Dr: Diane Smith MD Copies to: MD Agusto Rose, CORN CUTTER OPERATOR-C Diane Smith MD~ Cardiology HPI History of Present Illness Consult Date: 11/24/24 Reason for Consult: Chest pain HPI: Ms. Wheeler is a 64 year old female who was admitted to [facility] initially for hyperkalemia. She has a long history of CKD due to obstructive uropathy secondary to an overactive bladder. Her creatinine typically stays > 2 but she is not on dialysis. On admission she also mentioned chest pain that has been ongoing for 1-2 months. The chest pain is retrosternal,sharp in nature, occurs randomly sometimes during exertion and sometimes while she is sitting watching TV. There is no associated shortness of breath, nausea, vomiting, palpitations or syncope. She had a stress test around 2 years ago at [facility] which was normal per patient. Here, her EKG shows nonspecific T wave changes and troponin x 3 negative. She cannot exercise on a treadmill dueto severe diabetic neuropathy and prior amputation of left great toe. Review of Systems Review of Systems All other systems reviewed & are negative unless noted below or in HPI [facility] Medical History Hypertension CKD (chronic kidney disease) Restless leg Fibromyalgia Rheumatoid arthritis Lupus Diabetes Family History Brother Heart disease Legacy FamHx Relation: Brother(s) Hypertension Legacy FamHx Relation: Brother(s) Father Heart disease Diabetes Hypertension Cancer Legacy FamHx Problem: Diagnosed with Cancer Mother Heart disease History of stroke Legacy FamHx Problem: Diagnosed with Stroke Son Heart disease Sister Hypertension Diabetes Heart disease Social History Smoking Status: Never smoker Substance Use Type: None Meds Medications and Allergies Allergies latex Allergy (Unknown, Verified 11/23/24 15:08) Unresponsive Home Medications cetirizine 10 mg tablet 10 mg PO DAILY PRN allergy symptoms 06/05/24 [History Confirmed 11/23/24] ferrous sulfate 325 mg (65 mg iron) tablet 325 mg PO DAILY 06/05/24 [History Confirmed 11/23/24] fluticasone propionate 50 mcg/actuation nasal spray,suspension 2 spray intranasal DAILY PRN nasal congestion 09/04/24 [History Confirmed 11/23/24] hydrocodone 7.5 mg-acetaminophen 325 mg tablet 1 tab PO Q8HR 09/04/24 [History Confirmed 11/23/24] metoprolol succinate 50 mg tablet,extended release 24 hr 50 mg PO DAILY 09/04/24[History Confirmed 11/23/24] pregabalin 150 mg capsule 150 mg PO Q8HR 09/04/24 [History Confirmed 11/23/24] atorvastatin 20 mg tablet 20 mg PO DAILY 09/06/24 [History Confirmed 11/23/24] insulin glargine 100 unit/mL (3 mL) subcutaneous pen (Lantus Solostar U-100 Insulin) 28 unit subcut QHS 09/06/24 [History Confirmed 11/23/24] insulin lispro 100 unit/mL subcutaneous cartridge 1 sliding scale dose subcut AC09/06/24 [History Confirmed 11/23/24] nitroglycerin 0.4 mg sublingual tablet 0.4 mg sublingual Q5M PRN chest pain 09/06/24 [History Confirmed 11/23/24] amoxicillin 500 mg capsule 500 mg PO TID 3 days #9 caps 09/08/24 [Rx Confirmed 11/23/24] cyanocobalamin (vitamin B-12) 1,000 mcg capsule 1,000 mcg PO DAILY #90 caps 09/08/24 [Rx Confirmed 11/23/24] ergocalciferol (vitamin D2) 1,250 mcg (50,000 unit) capsule 1,250 mcg PO QWEEK 2months #9 caps 09/08/24 [Rx Confirmed 11/23/24] furosemide 40 mg tablet 40 mg PO BID@0800,1600 30 days #60 tabs 09/08/24 [Rx Confirmed 11/23/24] amlodipine 5 mg tablet 5 mg PO DAILY 11/23/24 [History Confirmed 11/23/24] Exam Physical Exam Vital Signs: Temp Pulse Resp BP Pulse Ox O2 Del Method 97.5 F L 63 16 186/92 H 99 Room Air 11/24/24 08:00 11/24/24 08:00 11/24/24 08:00 11/24/24 08:00 11/24/24 08:00 11/24/24 08:00 Narrative: Physical Exam: General: NAD, A&Ox3, Cooperative, Obesity Head, Eyes: NC/AT, EOMI Lungs: Good air entry; No crackles/rhonchi/wheezes Heart: S1S2 normal, Regular rhythm, No murmurs/rubs/gallop, No JVD Extremities: No edema. Left great toe amputation. Abdomen: Soft, non-tender, non-distended. Neuro: CN grossly intact, No focal deficits. Psych: Normal mood & affect. Results - Cardiology Labs 11/24/24 05:14 11/24/24 05:14 Lab results: Cardiac Enzymes 11/23/24 11/24/24 Range/Units 16:51 05:14 AST 17 12 L (13-39) U/L B-Natriuretic Peptide 126.0 H (5-100) pg/mL CBC 11/23/24 11/24/24 Range/Units 16:51 05:14 RBC 4.02 3.91 (3.60-5.00) x10E6/uL Hgb 10.7 L 10.1 L (11.8-15.4) g/dL Hct 31.5 L 30.4 L (34.0-46.4) % Plt Count 279 266 (150-450) x10E3/uL Neut # (Auto) 3.3 3.1 (1.8-7.7) x10E3/uL Lymph # (Auto) 2.4 2.6 (1.00-4.8) x10E3/uL Dewey # (Auto) 0.4 0.4 (0.0-0.8) x10E3/uL Eos # (Auto) 0.2 0.2 (0.0-0.45) x10E3/uL Baso # (Auto) 0.1 0.1 (0.0-0.2) x10E3/uL Comprehensive Metabolic Panel 11/23/24 11/23/24 11/24/24 Range/Units 16:51 20:52 05:14 Sodium 135 L 137 138 (136-145) mmol/L Potassium 5.5 H 4.7 5.0 (3.5-5.1) mmol/L Chloride 107 111 H 111 H (98-107) mmol/L Carbon Dioxide 20.4 L 19.3 L 22.9 (21.0-31.0) mmol/L BUN 55 H 54 H 52 H (7-25) mg/dL Creatinine 2.62 H 2.46 H 2.37 H (0.60-1.20) mg/dL Glucose 190 H 99 204 H D (70-100) mg/dL Calcium 8.8 8.9 8.0 L (8.6-10.3) mg/dL AST 17 12 L (13-39) U/L ALT 17 14 (7-52) U/L Alkaline Phosphatase 93 79 (34-104) U/L Total Protein 7.7 6.5 (6.4-8.9) gm/dL Albumin 3.4 L 2.9 L (3.5-5.7) gm/dL Intake and Output 11/23/24 11/24/24 11/24/24 22:59 06:59 14:59 Intake Total 550 / 750 200 / 750 Output Total 1000 / 1000 Balance 550 / -250 -800 / -250 Intake: IV 550 / 550 Sodium Chloride 0.9% 500 ml 500 500 / 500 ml @ 999 mls/hr IV .Q31M ONE Rx#:[id number] cefTRIAXone 1GM-*NS* 1 gm In 50 50 / 50 ml @ 100 mls/hr IV ONCE ONE Rx #:[id number] Oral 200 / 200 Output: Urine Amount (Catheter) 1000 / 1000 Urethral (Valerio) 1000 / 1000 Other: Weight 60 kg 60 kg Date of Last Bowel Movement 11/23/24 Lab 11/23/24 16:51 PT 10.6 INR 0.9 A&P - Cardiology (1) Chest pain: Code(s): R07.9 - Chest pain, unspecified (2) Hypertension: Code(s): I10 - Essential (primary) hypertension (3) Diabetes: Code(s): E11.9 - Type 2 diabetes mellitus without complications (4) CKD stage 3b, GFR 30-44 ml/min: Code(s): N18.32 - Chronic kidney disease, stage 3b Plan # Chest pain ? concerning for cardiac origin. EKG changes are nonspecific. # Hyperkalemia - improved. # CKD 4, obstructive uropathy and overactive bladder. # Other: HTN, T2DM with polyneuropathy, H/o Right great toe amputation, RLS, Fibromyalgia, Rh arthritis. -Given poor renal function we will proceed with Lexiscan stress test tomorrow. Since all troponins are normal, if patient prefers to do this as outpatient thatcan be arranged as well. -Cont home meds including amlodipine, BB, statin Documented By: Galo Mcumllen MD 02/12 1008 Signed By: <Electronically signed by Galo Mcmullen MD> 11/24/24 7[address] [facility] Work Phone: 1(179) 109-430904-06-2025 Consult note Author Cory Angeles [facility] Note Date/Time November 24, 2024 12:5 7pm [facility] [address] [place] [address] Podiatry Consult Note Signed Patient: Aislinn Wheeler MR#: [id number] : 1960 Acct:[id number] Age/Sex: 64 / F Adm Date: 5 Loc: 3T Room: [address] [place] [address] Type: ADM IN Attending Dr: Diane Smith MD Copies to: Agusto Olmstead, CORN CUTTER OPERATOR-C MD Cory Chi DPM~ HPI Data of Consult Consult Date: 11/24/24 Requesting Physician: Diane Smith MD Primary Care Provider: Agusto Olmstead Consult Narrative History of present illness: Ms. Wheeler is a 64 year old female with past medical history of type 2 diabetes with nephropathy and neuropathy, CKD Stage IV, low capacity overactive bladder and was admitted for low potassium and chronic kidney disease. Patient seen perconsultation request of hospitalist for right foot foreign body that patient states been present for the past 6 days. She was scheduled to have interventional surgery tomorrow with Dr. Ramon Enrique for excision of right foot foreign body. She stated increased redness and swelling over the past weekand was seen in his office with cellulitis but was unable to obtain foreign bodyin office and was scheduled for surgery. Patient denies any pain to her right foot secondary to history of peripheral neuropathy and type 2 diabetes and has history of uncontrolled diabetes and takes insulin. She denies any current drainage or pain to her right foot. Patient has history of left great toe amputation in the past Review of Systems Constitutional Constitutional: Reports system reviewed and no additional complaints, except as documented Cardiovascular Comments: Denies any shortness of breath or chest pain currently with history of angina Gastrointestinal Comments: Denies abdominal pain loose stool or irregular rhythm Musculoskeletal Comments: Denies any aches and pains advised with generalized arthralgias noted secondary to RA and lupus [facility] Medical History Hypertension CKD (chronic kidney disease) Restless leg Fibromyalgia Rheumatoid arthritis Lupus Diabetes Family History Brother Heart disease Legacy FamHx Relation: Brother(s) Hypertension Legacy FamHx Relation: Brother(s) Father Heart disease Diabetes Hypertension Cancer Legacy FamHx Problem: Diagnosed with Cancer Mother Heart disease History of stroke Legacy FamHx Problem: Diagnosed with Stroke Son Heart disease Sister Hypertension Diabetes Heart disease Social History Smoking Status: Never smoker Substance Use Type: None Meds Medications and Allergies Allergies latex Allergy (Unknown, Verified 11/23/24 15:08) Unresponsive Home Medications cetirizine 10 mg tablet 10 mg PO DAILY PRN allergy symptoms 06/05/24 [History Confirmed 11/23/24] ferrous sulfate 325 mg (65 mg iron) tablet 325 mg PO DAILY 06/05/24 [History Confirmed 11/23/24] fluticasone propionate 50 mcg/actuation nasal spray,suspension 2 spray intranasal DAILY PRN nasal congestion 09/04/24 [History Confirmed 11/23/24] hydrocodone 7.5 mg-acetaminophen 325 mg tablet 1 tab PO Q8HR 09/04/24 [History Confirmed 11/23/24] metoprolol succinate 50 mg tablet,extended release 24 hr 50 mg PO DAILY 09/04/24[History Confirmed 11/23/24] pregabalin 150 mg capsule 150 mg PO Q8HR 09/04/24 [History Confirmed 11/23/24] atorvastatin 20 mg tablet 20 mg PO DAILY 09/06/24 [History Confirmed 11/23/24] insulin glargine 100 unit/mL (3 mL) subcutaneous pen (Lantus Solostar U-100 Insulin) 28 unit subcut QHS 09/06/24 [History Confirmed 11/23/24] insulin lispro 100 unit/mL subcutaneous cartridge 1 sliding scale dose subcut AC09/06/24 [History Confirmed 11/23/24] nitroglycerin 0.4 mg sublingual tablet 0.4 mg sublingual Q5M PRN chest pain 09/06/24 [History Confirmed 11/23/24] amoxicillin 500 mg capsule 500 mg PO TID 3 days #9 caps 09/08/24 [Rx Confirmed 11/23/24] cyanocobalamin (vitamin B-12) 1,000 mcg capsule 1,000 mcg PO DAILY #90 caps 09/08/24 [Rx Confirmed 11/23/24] ergocalciferol (vitamin D2) 1,250 mcg (50,000 unit) capsule 1,250 mcg PO QWEEK 2months #9 caps 09/08/24 [Rx Confirmed 11/23/24] furosemide 40 mg tablet 40 mg PO BID@0800,1600 30 days #60 tabs 09/08/24 [Rx Confirmed 11/23/24] amlodipine 5 mg tablet 5 mg PO DAILY 11/23/24 [History Confirmed 11/23/24] Exam Physical Exam Vital Signs: Temp Pulse Resp BP Pulse Ox O2 Del Method 97.5 F L 63 16 186/92 H 99 Room Air 11/24/24 08:00 11/24/24 08:00 11/24/24 08:00 11/24/24 08:00 11/24/24 08:00 11/24/24 08:00 Narrative: LE EXAM: DERM: Right lateral aspect of foot near subfifth metatarsal region has area of erythema and edema that extends to the MPJ region of the right foot. Minimal dried blood area with suspicion of anterior wound for foreign body. Negative drainage noted. Diminished hair growth noted VASC: positive dp/pt pedals pulses to right foot NEURO: gross sensation absent to right foot MS: Negative POP to right foot XRAY: Reviewed three-view x-ray of right foot demonstrates submillimeter foreignbody most likely metallic in nature near the fifth MPJ region of the right foot with negative gas noted or osteolysis noted Results - Podiatry Labs 11/24/24 05:14 11/24/24 05:14 WBC 6.4 ESR 66 mm/hr (0-29) H 11/23/24 20:52 Microbiology Microbiology: Microbiology - Results from entire visit 11/23/24 16:11 Urine - Clean-Voided Midstream Urine Culture - Preliminary No Growth 1 Day Assessment/Plan (1) Cellulitis of right foot: Code(s): L03.115 - Cellulitis of right lower limb (2) Diabetes mellitus due to underlying condition with diabetic polyneuropathy, with long-term current use of insulin: Code(s): E08.42 - Diabetes mellitus due to underlying condition with diabetic polyneuropathy; Z79.4 - planning coordinator (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 (3) Foreign body in right foot: Code(s): S90.851A - Superficial foreign body, right foot, initial encounter Plan 1. Reviewed radiographs today with notable subfifth metatarsal 7millimeter metallic object noted and reviewed radiology report as well 2. Patient continue IV antibiotics 3. Discussed with patient option for bedside I&D and removal of foreign body. Patient agreeable to procedure and consents procedure today. Decision for surgical procedure today at bedside. 4. Under sterile conditions a 15 blade was utilized to remove scab-like lesion to the right subfifth metatarsal region and pickup was utilized to explore area of subfifth metatarsal region down to fatty tendon tissue layer. Noted at this time a 7 mm metallic object was removed and appeared to be in like or needlelikein nature. Wound was flushed with copious nonsterile saline and procedure was done under sterile conditions Kun dressing was then applied 5. On discharge patient most likely will follow-up in the [place] location for Dr. Cory Angeles and recommend make appointment for patient upon discharge. Will order radiographs at this time and no further intervention at this time Documented By: Cory Angeles DPM 11/24/24 1247 Signed By: <Electronically signed by OLIVIA Angeles> 11/24/24 125[address] [facility] Work Phone: 1(542) 170-522404-06-2025 [place] [address] Cardiology Consult Note Signed Patient: Aislinn Wheeler MR#: [id number] : 1960 Acct:[id number] Age/Sex: 64 / F Adm Date: 5 Loc: Room: [address] [place] [address] Type: ADM IN Attending Dr: Diane Smith MD Copies to: MD Agusto Rsoe, CORN CUTTER OPERATOR-C Diane Smith MD~ Cardiology HPI History of Present Illness Consult Date: 11/24/24 Reason for Consult: Chest pain HPI: Ms. Wheeler is a 64 year old female who was admitted to [facility] initially for hyperkalemia. She has a long history of CKD due to obstructive uropathy secondary to an overactive bladder. Her creatinine typically stays > 2 but she is not on dialysis. On admission she also mentioned chest pain that has been ongoing for 1-2 months. The chest pain is retrosternal,sharp in nature, occurs randomly sometimes during exertion and sometimes while she is sitting watching TV. There is no associated shortness of breath, nausea, vomiting, palpitations or syncope. She had a stresstest around 2 years ago at [facility] which was normal per patient. Here, her EKG shows nonspecific T wave changes and troponin x 3 negative. She cannot exercise on a treadmill dueto severe diabetic neuropathy and prior amputation of left great toe. Review of Systems Review of Systems All other systems reviewed & are negative unless noted below or in HPI [facility] Medical History Hypertension CKD (chronic kidney disease) Restless leg Fibromyalgia Rheumatoid arthritis Lupus Diabetes Family History Brother Heart disease Legacy FamHx Relation: Brother(s) Hypertension Legacy FamHx Relation: Brother(s) Father Heart disease Diabetes Hypertension Cancer Legacy FamHx Problem: Diagnosed with Cancer Mother Heart disease History of stroke Legacy FamHx Problem: Diagnosed with Stroke Son Heart disease Sister Hypertension Diabetes Heart disease Social History Smoking Status: Never smoker Substance Use Type: None Meds Medications and Allergies Allergies latex Allergy (Unknown, Verified 11/23/24 15:08) Unresponsive Home Medications cetirizine 10 mg tablet 10 mg PO DAILY PRN allergy symptoms 06/05/24 [History Confirmed 11/23/24] ferrous sulfate 325 mg (65 mg iron) tablet 325 mg PO DAILY 06/05/24 [History Confirmed 11/23/24] fluticasone propionate 50 mcg/actuation nasal spray,suspension 2 spray intranasal DAILY PRN nasal congestion 09/04/24 [History Confirmed 11/23/24] hydrocodone 7.5 mg-acetaminophen 325 mg tablet 1 tab PO Q8HR 09/04/24 [History Confirmed 11/23/24] metoprolol succinate 50 mg tablet,extended release 24 hr 50 mg PO DAILY 09/04/24[History Confirmed 11/23/24] pregabalin 150 mg capsule 150 mg PO Q8HR 09/04/24 [History Confirmed 11/23/24] atorvastatin 20 mg tablet 20 mg PO DAILY 09/06/24 [History Confirmed 11/23/24] insulin glargine 100 unit/mL (3 mL) subcutaneous pen (Lantus Solostar U-100 Insulin) 28 unit subcutQHS 09/06/24 [History Confirmed 11/23/24] insulin lispro 100 unit/mL subcutaneous cartridge 1 sliding scale dose subcut AC09/06/24 [History Confirmed 11/23/24] nitroglycerin 0.4 mg sublingual tablet 0.4 mg sublingual Q5M PRN chest pain 09/06/24 [History Confirmed 11/23/24] amoxicillin 500 mg capsule 500 mg PO TID 3 days #9 caps 09/08/24 [Rx Confirmed 11/23/24] cyanocobalamin (vitamin B-12) 1,000 mcg capsule 1,000 mcg PO DAILY #90 caps 09/08/24 [Rx Confirmed 11/23/24] ergocalciferol (vitamin D2) 1,250 mcg (50,000 unit) capsule 1,250 mcg PO QWEEK 2months #9 caps 09/08/24 [Rx Confirmed 11/23/24] furosemide 40 mg tablet 40 mg PO BID@0800,1600 30 days #60 tabs 09/08/24 [Rx Confirmed 11/23/24] amlodipine 5 mg tablet 5 mg PO DAILY 11/23/24 [History Confirmed 11/23/24] Exam Physical Exam Vital Signs: Temp Pulse Resp BP Pulse Ox O2 Del Method 97.5 F L 63 16 186/92 H 99 Room Air 11/24/24 08:00 11/24/24 08:00 11/24/24 08:00 11/24/24 08:00 11/24/24 08:00 11/24/24 08:00 Narrative: Physical Exam: General: NAD, A&Ox3, Cooperative, Obesity Head, Eyes: NC/AT, EOMI Lungs: Good air entry; No crackles/rhonchi/wheezes Heart: S1S2 normal, Regular rhythm, No murmurs/rubs/gallop, No JVD Extremities: No edema. Left great toe amputation. Abdomen: Soft, non-tender, non-distended. Neuro: CN grossly intact, No focal deficits. Psych: Normal mood & affect. Results - Cardiology Labs 11/24/24 05:14 11/24/24 05:14 Lab results: Cardiac Enzymes 11/23/24 11/24/24 Range/Units 16:51 05:14 AST 17 12 L (13-39) U/L B-Natriuretic Peptide 126.0 H (5-100) pg/mL CBC 11/23/24 11/24/24 Range/Units 16:51 05:14 RBC 4.02 3.91 (3.60-5.00) x10E6/uL Hgb 10.7 L 10.1 L (11.8-15.4) g/dL Hct 31.5 L 30.4 L (34.0-46.4) % Plt Count 279 266 (150-450) x10E3/uL Neut # (Auto) 3.3 3.1 (1.8-7.7) x10E3/uL Lymph # (Auto) 2.4 2.6 (1.00-4.8) x10E3/uL Dewey # (Auto) 0.4 0.4 (0.0-0.8) x10E3/uL Eos # (Auto) 0.2 0.2 (0.0-0.45) x10E3/uL Baso # (Auto) 0.1 0.1 (0.0-0.2) x10E3/uL Comprehensive Metabolic Panel 11/23/24 11/23/24 11/24/24 Range/Units 16:51 20:52 05:14 Sodium 135 L 137 138 (136-145) mmol/L Potassium 5.5 H 4.7 5.0 (3.5-5.1) mmol/L Chloride 107 111 H 111 H (98-107) mmol/L Carbon Dioxide 20.4 L 19.3 L 22.9 (21.0-31.0) mmol/L BUN 55 H 54 H 52 H (7-25) mg/dL Creatinine 2.62 H 2.46 H 2.37 H (0.60-1.20) mg/dL Glucose 190 H 99 204 H D (70-100) mg/dL Calcium 8.8 8.9 8.0 L (8.6-10.3) mg/dL AST 17 12 L (13-39) U/L ALT 17 14 (7-52) U/L Alkaline Phosphatase 93 79 (34-104) U/L Total Protein 7.7 6.5 (6.4-8.9) gm/dL Albumin 3.4 L 2.9 L (3.5-5.7) gm/dL Intake and Output 11/23/24 11/24/24 11/24/24 22:59 06:59 14:59 Intake Total 550 / 750 200 / 750 Output Total 1000 / 1000 Balance 550 / -250 -800 / -250 Intake: IV 550 / 550 Sodium Chloride 0.9% 500 ml 500 500 / 500 ml @ 999 mls/hr IV .Q31M ONE Rx#:[id number] cefTRIAXone 1GM-*NS* 1 gm In 50 50 / 50 ml @ 100 mls/hr IV ONCE ONE Rx #:[id number] Oral 200 / 200 Output: Urine Amount (Catheter) 1000 / 1000 Urethral (Valerio) 1000 / 1000 Other: Weight 60 kg 60 kg Date of Last Bowel Movement 11/23/24 Lab 11/23/24 16:51 PT 10.6 INR 0.9 A&P - Cardiology (1) Chest pain: Code(s): R07.9 - Chest pain, unspecified (2) Hypertension: Code(s): I10 - Essential (primary) hypertension (3) Diabetes: Code(s): E11.9 - Type 2 diabetes mellitus without complications (4) CKD stage 3b, GFR 30-44 ml/min: Code(s): N18.32 - Chronic kidney disease, stage 3b Plan # Chest pain ? concerning for cardiac origin. EKG changes are nonspecific. # Hyperkalemia - improved. # CKD 4, obstructive uropathy and overactive bladder. # Other: HTN, T2DM with polyneuropathy, H/o Right great toe amputation, RLS, Fibromyalgia, Rh arthritis. -Given poor renal function we will proceed with Lexiscan stress test tomorrow. Since all troponins are normal, if patient prefers to do this as outpatient thatcan be arranged as well. -Cont home meds including amlodipine, BB, statin Documented By: Galo Mcmullen MD 02/12 1008 Signed By: 11/24/[address] [place], [place] [id number] Consult note Author Tyler Valencia [facility] Note Date/Time November 24, 2024 12:[address] [place] [address] [place] [address] Nephrology Consult Note Signed Patient: Aislinn Wheeler MR#: [id number] : 1960 Acct:[id number] Age/Sex: 64 / F Adm Date: 5 Loc: Room: [address] [place] [address] Type: ADM IN Attending Dr: Diane Smith MD Copies to: MD Agusto Marks, CORN CUTTER OPERATOR-C Diane Smith MD~ Providers Consult Date: 11/24/24 Requesting Provider: Diane Smith MD Primary Care Provider: Agusto Olmstead HPI Reason for Consult: ANATOLIY on CKD, hyperkalemia and metabolic acidosis management. History of Present Illness: This is a 64-year-old female with a medical see of CKD, DM, HTN, HLD, bilateral hydronephrosis with neurogenic bladder, secondary hyperparathyroidism and anemiawas advised by the PCP to go to the emergency room for hyperkalemia and worsening renal function. Patient has a neurogenic bladder and currently self catheterize herself. As she was initially following with Dr. Lisa aguileraand was given a few tox injection but has no improvement. She was referred to the [facility] and reported that she was advised to have a major surgery she opted against it. She reported now she is referred to the [facility] by her PCP. Patient has a CKD due to longstanding DM and HTN and follows with Dr. Sprague inoutpatient clinic. Patient was admitted for similar reason in August 2024. Onpresentation emergency room patient was found to have hyperkalemia with serum potassium 5.5 mmol/L, abnormal renal function with elevated creatinine to 2.6 mg/dL and metabolic acidosis. Patient was given Lokelma and was I was consulted. Advised to be started patient on IV bicarbonate drip. She also had CT abdomen pelvis done which showed severe bilateral hydronephrosis with more pronounced bladder distention. Patient had a Valerio catheter placement in the emergency room and has good urine output. Patient was seen and examined bedsidefeeling better since yesterday. Review of Systems Review of Systems All other systems reviewed & are negative unless noted below or in HPI Review of systems: Cardiovascular: denies any chest pain, palpitation Pulmonary: denies any cough, hemoptysis Gastrointestinal: denies any nausea, vomiting, diarrhea Neurological :denies any headache, numbness, weakness Endocrine: denies any polyuria, polydipsia Dermatological: denies any itching or rash [facility] Medical History (Updated 11/24/24 @ 12:05 by Tyler Valencia MD) Hypertension CKD (chronic kidney disease) Restless leg Fibromyalgia Rheumatoid arthritis Lupus Diabetes Family History Brother Heart disease Legacy FamHx Relation: Brother(s) Hypertension Legacy FamHx Relation: Brother(s) Father Heart disease Diabetes Hypertension Cancer Legacy FamHx Problem: Diagnosed with Cancer Mother Heart disease History of stroke [facility] Problem: Diagnosed with Stroke Son Heart disease Sister Hypertension Diabetes Heart disease Social History Smoking Status: Never smoker Substance Use Type: None Meds Medications & Allergies Allergies latex Allergy (Unknown, Verified 11/23/24 15:08) Unresponsive Home Medications cetirizine 10 mg tablet 10 mg PO DAILY PRN allergy symptoms 06/05/24 [History Confirmed 11/23/24] ferrous sulfate 325 mg (65 mg iron) tablet 325 mg PO DAILY 06/05/24 [History Confirmed 11/23/24] fluticasone propionate 50 mcg/actuation nasal spray,suspension 2 spray intranasal DAILY PRN nasal congestion 09/04/24 [History Confirmed 11/23/24] hydrocodone 7.5 mg-acetaminophen 325 mg tablet 1 tab PO Q8HR 09/04/24 [History Confirmed 11/23/24] metoprolol succinate 50 mg tablet,extended release 24 hr 50 mg PO DAILY 09/04/24[History Confirmed 11/23/24] pregabalin 150 mg capsule 150 mg PO Q8HR 09/04/24 [History Confirmed 11/23/24] atorvastatin 20 mg tablet 20 mg PO DAILY 09/06/24 [History Confirmed 11/23/24] insulin glargine 100 unit/mL (3 mL) subcutaneous pen (Lantus Solostar U-100 Insulin) 28 unit subcut QHS 09/06/24 [History Confirmed 11/23/24] insulin lispro 100 unit/mL subcutaneous cartridge 1 sliding scale dose subcut AC09/06/24 [History Confirmed 11/23/24] nitroglycerin 0.4 mg sublingual tablet 0.4 mg sublingual Q5M PRN chest pain 09/06/24 [History Confirmed 11/23/24] amoxicillin 500 mg capsule 500 mg PO TID 3 days #9 caps 09/08/24 [Rx Confirmed 11/23/24] cyanocobalamin (vitamin B-12) 1,000 mcg capsule 1,000 mcg PO DAILY #90 caps 09/08/24 [Rx Confirmed 11/23/24] ergocalciferol (vitamin D2) 1,250 mcg (50,000 unit) capsule 1,250 mcg PO QWEEK 2months #9 caps 09/08/24 [Rx Confirmed 11/23/24] furosemide 40 mg tablet 40 mg PO BID@0800,1600 30 days #60 tabs 09/08/24 [Rx Confirmed 11/23/24] amlodipine 5 mg tablet 5 mg PO DAILY 11/23/24 [History Confirmed 11/23/24] Active Medications: Active Medications Hydrocodone Bitart/Acetaminophen (Hydrocodone/Acetaminophen 7.5-325mg Tablet) 1tab PO Q8HR PRN PRN Reason: PRN PAIN Last Admin: 11/24/24 06:48 Dose: 1 tab Amlodipine Besylate (Amlodipine 10 Mg Tablet) 10 mg PO DAILY UZIEL Stop: 11/24/25 08:59 Last Admin: 11/24/24 09:21 Dose: 10 mg Atorvastatin Calcium (Atorvastatin 20 Mg Tablet) 20 mg PO DAILY UZIEL Stop: 11/24/25 08:59 Last Admin: 11/24/24 09:21 Dose: 20 mg Dextrose (Dextrose 50% In Water 25 Gm/50 Ml Syringe) 0 gm IV-PUSH PRN PRN PRN Reason: Hypoglycemia Stop: 11/24/25 02:41 Ergocalciferol (Ergocalciferol 1,250 Mcg (50,000 Units) Capsule) 1,250 mcg PO Mo@0900 UZIEL Stop: 12/02/25 08:59 Ferrous Sulfate (Ferrous Sulfate 324 Mg Tablet.Dr) 324 mg PO DAILY UZIEL Stop: 11/24/25 08:59 Last Admin: 11/24/24 09:21 Dose: 324 mg Fluticasone Propionate (Fluticasone Propionate Muddy 120 Muddy/16 Gm Bottle) 2 spray INTRANASAL DAILY PRN PRN Reason: nasal congestion Stop: 11/23/25 18:54 Glucose (Dextrose 40% Gel 15 Gm Tube) 0 gm PO PRN PRN PRN Reason: Hypoglycemia Stop: 11/24/25 02:41 Heparin Sodium (Porcine) (Heparin 5,000 Unit/Ml Vial) 5,000 unit SUBCUT Q12HR UZIEL Stop: 11/23/25 20:59 Last Admin: 11/24/24 09:21 Dose: 5,000 unit Hydralazine HCl (Hydralazine 20 Mg/Ml Vial) 10 mg IV-PUSH Q6H PRN PRN Reason: if SBP > 185 Stop: 11/23/25 18:48 Sodium Bicarbonate 150 meq/ (Sterile Water) 1,150 mls @ 75 mls/hr IV .[id number] UZIEL Stop: 11/23/25 18:59 Last Admin: 11/23/24 23:10 Dose: 75 mls/hr Ampicillin Sodium/Sulbactam Sodium (Unasyn) 3 gm in 100 mls @ 200 mls/hr IV Q12H [facility] Last Admin: 11/23/24 23:10 Dose: 200 mls/hr Insulin Aspart (Insulin Aspart 300 Units/3 Ml) 0 units SUBCUT TID.WITH.MEALS [facility]; Protocol Stop: 11/24/25 07:59 Insulin Aspart (Insulin Aspart 300 Units/3 Ml) 0 units SUBCUT TID.WM.HS [facility]; Protocol Stop: 11/24/25 07:59 Insulin Glargine (Insulin Glargine 300 Units/3 Ml Insuln.Pen) 28 units SUBCUT QHS [facility] Stop: 11/23/25 21:59 Last Admin: 11/23/24 23:11 Dose: 28 units Loratadine (Loratadine 10 Mg Tablet) 10 mg PO DAILY PRN PRN Reason: allergy symptoms Stop: 11/23/25 20:59 Nitroglycerin (Nitroglycerin 0.4 Mg Tab.Subl) 0.4 mg SUBLINGUAL Q5M PRN PRN Reason: chest pain Stop: 11/23/25 18:54 Ondansetron HCl (Ondansetron Odt 4 Mg Tab.Rapdis) 4 mg PO Q8HR PRN PRN Reason: nausea and vomiting Stop: 11/23/25 18:54 Pantoprazole Sodium (Pantoprazole 40 Mg Tablet.Dr) 40 mg PO DAILY [facility] Stop: 11/24/25 08:59 Last Admin: 11/24/24 09:21 Dose: 40 mg Pregabalin (Pregabalin 150 Mg Capsule) 150 mg PO Q8HR [facility] Stop: 05/22/25 21:59 Last Admin: 11/24/24 06:48 Dose: 150 mg Sodium Chloride (Sodium Chloride 0.9 % 10 Ml Syringe) 0 ml IV-PUSH PRN PRN PRN Reason: Flush Stop: 11/23/25 15:07 Sodium Chloride (Sodium Chloride 0.9 % 10 Ml Syringe) 10 ml IV-PUSH Q8H [facility] Stop: 11/23/25 18:14 Last Admin: 11/24/24 07:05 Dose: Not Given Exam Physical Exam Vital Signs: Temp Pulse Resp BP Pulse Ox O2 Del Method 98.2 F 62 16 129/63 98 Room Air 11/24/24 04:00 11/24/24 04:00 11/24/24 04:00 11/24/24 04:00 11/24/24 04:00 11/24/24 04:00 Narrative: General: Appears comfortable and not in distress Heart: S1-S2, no rub Lung: Bilateral air entry, no wheezing or crackles Abdomen: Soft, positive bowel sounds Extremities: No edema, no cyanosis Head: Atraumatic, normocephalic Ear: No gross hearing Deficit or external ear redness Eyes: No pallor or redness Neck: No JVD or visible mass Skin: No rashes , warm to touch SALES ACCOUNT COORDINATOR: Awake,Alert, following simple command Musculoskeletal: No swelling or limitation of movement of the large joints Psychiatric: Cooperative, normal mood and affect Results - Nephrology Labs 11/24/24 05:14 11/24/24 05:14 Labs: 11/23/24 11/23/24 11/23/24 16:11 16:51 20:52 BUN 55 H 54 H Creatinine 2.62 H 2.46 H Phosphorus Albumin 3.4 L Urine Color Colorless Urine Appearance Clear Urine pH 6.0 Ur Specific [place] 1.010 Urine Protein 100 H Urine Glucose (UA) 500 H Urine Ketones Negative Urine Occult Blood Negative Urine Nitrite Negative Ur Leukocyte Esterase 2+ H Urine RBC 1-2 Urine WBC 5-9 H Urine Bacteria None seen 11/24/24 05:14 BUN 52 H Creatinine 2.37 H Phosphorus 3.9 Albumin 2.9 L Urine Color Urine Appearance Urine pH Ur Specific [place] Urine Protein Urine Glucose (UA) Urine Ketones Urine Occult Blood Urine Nitrite Ur Leukocyte Esterase Urine RBC Urine WBC Urine Bacteria Radiology Impressions Impressions - last 24 hours: Impressions Chest X-Ray 11/23/24 16:16 IMPRESSION: CARDIOMEGALY. NO ACUTE PLEURAL-PARENCHYMAL DISEASE. Impression dictated by: aRf Potter M.D.11/23/2024 4:55 PM Dictation Location: [facility] Abdomen/Pelvis CT 11/23/24 18:09 IMPRESSION: Severe bilateral hydroureteronephrosis, question minimally more pronounced than the the prior examination however the degree of bladder distention appears increased when compared to prior exam. Lingular nodule 1 cm size, this is unchanged from the August comparison. If not previously evaluated, CT chest could be beneficial to evaluate for any additional nodules. Based on size, percutaneous sampling or PET/CT may be warranted if there are no other priors. Impression dictated by: Raf Potter M.D.11/23/2024 6:50 PM Dictation Location: [place] [address] Foot X-Ray 11/23/24 18:45 IMPRESSION: 7 mm radiopaque foreign body noted. No definite periosteal reactionor subcutaneous emphysema. Impression dictated by: Raf Potter M.D.11/24/2024 8:07 AM Dictation Location: [place] [address] Any impression(s) listed above is documentation that was entered by the reading physician into a diagnostic report(s) for Aislinn Wheeler. I have reviewed the report(s) and am incorporating any findings in the treatment plan of this patient where applicable. A&P - Nephrology Assessment/Plan (1) Acute kidney injury superimposed on CKD: Assessment/Problem Details: She has an ANATOLIY due to the urinary retention. She has a good urine output after Valerio catheter placement. Serum creatinine is now turning down and she is making adequate urine output. (2) Hyperkalemia: Assessment/Problem Details: She has hyperkalemia due to the ANATOLIY. I have hyperkalemia resolved with Lokelma and IV bicarbonate. (3) CKD stage 3b, GFR 30-44 ml/min: Assessment/Problem Details: She has a CKD due to the longstanding DM and HTN. Her renal function has been declining due to progression of the CKD in setting of recurrent ANATOLIY's. (4) Hydroureteronephrosis: Assessment/Problem Details: She has bilateral hydronephrosis due to the neurogenic bladder. She follows with the urology outpatient at [facility]. (5) Neurogenic bladder: Assessment/Problem Details: She has a neurogenic bladder and was seen by the urology at [facility]. She was recommended to have a surgical intervention but opted against this. She is referred to now urogynecologist at [facility] for second opinion. (6) Diabetes: Assessment/Problem Details: She has insulin-dependent type 2 diabetes mellitus and takes insulin glargine athome. (7) Hypertension: Assessment/Problem Details: Her blood pressure is high. She takes amlodipine, metoprolol and Lasix at home. Plan * Continue IV fluid. * Continue to hold home dose of the Lasix. * Continue current dose of amlodipine * Will resume home dose of the metoprolol. * Continue insulin adjust the dose as needed to keep the blood sugar between 100 to 150 mg/dL * Check renal function daily and monitoring for output * Thanks for consult. Will continue follow-up with you. Please feel free to call us with any question. Documented By: Tyler Valencia MD 11/24/24921 Signed By: <Electronically signed by Tyler Valencia MD> 11/24/24 [address] [facility] Work Phone: [phone]) 308-357904-06-2025 [place] [address] Podiatry Consult Note Signed Patient: Aislinn hWeeler MR#: [id number] : 1960 Acct:[id number] Age/Sex: 64 / F Adm Date: 5 Loc: Room: [address] [place] [address] Type: ADM IN Attending Dr: Diane Smith MD Copies to: Agusto Olmstead, CORN CUTTER OPERATOR-C MD Cory Chi, SHASHANKM~ HPI Data of Consult Consult Date: 11/24/24 Requesting Physician: Diane Smith MD Primary Care Provider: Agusto Olmstead Consult Narrative History of present illness: Ms. Wheeler is a 64 year old female with past medical history of type 2 diabetes with nephropathy and neuropathy, CKD Stage IV, low capacity overactive bladder and was admitted for low potassium and chronic kidney disease. Patient seen perconsultation request of hospitalist for right foot foreign body that patient states been present for the past 6 days. She was scheduled to have interventional surgery tomorrow with Dr. Ramon Enrique for excision of right foot foreign body. She stated increased redness and swelling over the past weekand was seen in his office with cellulitis but was unable to obtain foreign bodyin office and was scheduled for surgery. Patient denies any pain to her right foot secondary to history of peripheral neuropathy and type 2 diabetes and has history of uncontrolled diabetes and takes insulin. She denies any current drainage or pain to her right foot. Patient has history of left great toe amputation in the past Review of Systems Constitutional Constitutional: Reports system reviewed and no additional complaints, except as documented Cardiovascular Comments: Denies any shortness of breath or chest pain currently with history of angina Gastrointestinal Comments: Denies abdominal pain loose stool or irregular rhythm Musculoskeletal Comments: Denies any aches and pains advised with generalized arthralgias noted secondary to RA and lupus [facility] Medical History Hypertension CKD (chronic kidney disease) Restless leg Fibromyalgia Rheumatoid arthritis Lupus Diabetes Family History Brother Heart disease Legacy FamHx Relation: Brother(s) Hypertension Legacy FamHx Relation: Brother(s) Father Heart disease Diabetes Hypertension Cancer Legacy FamHx Problem: Diagnosed with Cancer Mother Heart disease History of stroke Legacy FamHx Problem: Diagnosed with Stroke Son Heart disease Sister Hypertension Diabetes Heart disease Social History Smoking Status: Never smoker Substance Use Type: None Meds Medications and Allergies Allergies latex Allergy (Unknown, Verified 11/23/24 15:08) Unresponsive Home Medications cetirizine 10 mg tablet 10 mg PO DAILY PRN allergy symptoms 06/05/24 [History Confirmed 11/23/24] ferrous sulfate 325 mg (65 mg iron) tablet 325 mg PO DAILY 06/05/24 [History Confirmed 11/23/24] fluticasone propionate 50 mcg/actuation nasal spray,suspension 2 spray intranasal DAILY PRN nasal congestion 09/04/24 [History Confirmed 11/23/24] hydrocodone 7.5 mg-acetaminophen 325 mg tablet 1 tab PO Q8HR 09/04/24 [History Confirmed 11/23/24] metoprolol succinate 50 mg tablet,extended release 24 hr 50 mg PO DAILY 09/04/24[History Confirmed 11/23/24] pregabalin 150 mg capsule 150 mg PO Q8HR 09/04/24 [History Confirmed 11/23/24] atorvastatin 20 mg tablet 20 mg PO DAILY 09/06/24 [History Confirmed 11/23/24] insulin glargine 100 unit/mL (3 mL) subcutaneous pen (Lantus Solostar U-100 Insulin) 28 unit subcutQHS 09/06/24 [History Confirmed 11/23/24] insulin lispro 100 unit/mL subcutaneous cartridge 1 sliding scale dose subcut AC09/06/24 [History Confirmed 11/23/24] nitroglycerin 0.4 mg sublingual tablet 0.4 mg sublingual Q5M PRN chest pain 09/06/24 [History Confirmed 11/23/24] amoxicillin 500 mg capsule 500 mg PO TID 3 days #9 caps 09/08/24 [Rx Confirmed 11/23/24] cyanocobalamin (vitamin B-12) 1,000 mcg capsule 1,000 mcg PO DAILY #90 caps 09/08/24 [Rx Confirmed 11/23/24] ergocalciferol (vitamin D2) 1,250 mcg (50,000 unit) capsule 1,250 mcg PO QWEEK 2months #9 caps 09/08/24 [Rx Confirmed 11/23/24] furosemide 40 mg tablet 40 mg PO BID@0800,1600 30 days #60 tabs 09/08/24 [Rx Confirmed 11/23/24] amlodipine 5 mg tablet 5 mg PO DAILY 11/23/24 [History Confirmed 11/23/24] Exam Physical Exam Vital Signs: Temp Pulse Resp BP Pulse Ox O2 Del Method 97.5 F L 63 16 186/92 H 99 Room Air 11/24/24 08:00 11/24/24 08:00 11/24/24 08:00 11/24/24 08:00 11/24/24 08:00 11/24/24 08:00 Narrative: LE EXAM: DERM: Right lateral aspect of foot near subfifth metatarsal region has area of erythema and edema that extends to the MPJ region of the right foot. Minimal dried blood area with suspicion of anteriorwound for foreign body. Negative drainage noted. Diminished hair growth noted VASC: positive dp/pt pedals pulses to right foot NEURO: gross sensation absent to right foot MS: Negative POP to right foot XRAY: Reviewed three-view x-ray of right foot demonstrates submillimeter foreignbody most likely metallic in nature near the fifth MPJ region of the right foot with negative gas noted or osteolysis noted Results - Podiatry Labs 11/24/24 05:14 11/24/24 05:14 WBC 6.4 ESR 66 mm/hr (0-29) H 11/23/24 20:52 Microbiology Microbiology: Microbiology - Results from entire visit 11/23/24 16:11 Urine - Clean-Voided Midstream Urine Culture - Preliminary No Growth 1 Day Assessment/Plan (1) Cellulitis of right foot: Code(s): L03.115 - Cellulitis of right lower limb (2) Diabetes mellitus due to underlying condition with diabetic polyneuropathy, with long-term current use of insulin: Code(s): E08.42 - Diabetes mellitus due to underlying condition with diabetic polyneuropathy; Z79.4 - planning coordinator (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 (3) Foreign body in right foot: Code(s): S90.851A - Superficial foreign body, right foot, initial encounter Plan 1. Reviewed radiographs today with notable subfifth metatarsal 7millimeter metallic object noted and reviewed radiology report as well 2. Patient continue IV antibiotics 3. Discussed with patient option for bedside I&D and removal of foreign body. Patient agreeableto procedure and consents procedure today. Decision for surgical procedure today at bedside. 4. Under sterile conditions a 15 blade was utilized to remove scab-like lesion to the right subfifth metatarsal region and pickup was utilized to explore area of subfifth metatarsal region down to fatty tendon tissue layer. Noted at this time a 7 mm metallic object was removed and appeared to be inlike or needlelikein nature. Wound was flushed with copious nonsterile saline and procedure was done under sterile conditions Kun dressing was then applied 5. On discharge patient most likely will follow-up in the [place] location for Dr. Cory menon make appointment for patient upon discharge. Will order radiographs at this time and no further intervention at this time Documented By: Cory Angeles DPM 11/24/24 1247 Signed By: 11/24/[address] [place], [place] [id number] [place] [address] Nephrology Consult Note Signed Patient: Aislinn Wheeler MR#: [id number] : 1960 Acct:[id number] Age/Sex: 64 / F Adm Date: 5 Loc: 3T Room: [address] [place] [address] Type: ADM IN Attending Dr: Diane Smith MD Copies to: MD Agusto Marks, CORN CUTTER OPERATOR-C Diane Smith MD~ Providers Consult Date: 11/24/24 Requesting Provider: Diane Smith MD Primary Care Provider: Agusto Olmstead HPI Reason for Consult: ANATOLIY on CKD, hyperkalemia and metabolic acidosis management. History of Present Illness: This is a 64-year-old female with a medical see of CKD, DM, HTN, HLD, bilateral hydronephrosis withneurogenic bladder, secondary hyperparathyroidism and anemiawas advised by the PCP to go to the emergency room for hyperkalemia and worsening renal function. Patient has a neurogenic bladder and currently self catheterize herself. As she was initially following with Dr. Lisa ybarra locallyand was given a few tox injection but has no improvement. She was referred to the [facility] and reported that she was advised to have a major surgery she opted against it. She reported now she is referred to the [facility] by her PCP. Patient has a CKD due to longstanding DM and HTN and follows with Dr. Sprague inoutpatient clinic. Patient was admitted for similar reason in August 2024. Onpresentation emergency room patient was found to have hyperkalemia with serum potassium 5.5 mmol/L, abnormal renal function with elevated creatinine to 2.6 mg/dL and metabolic acidosis. Patient was given Lokelma and was I was consulted. Advised to be started patient on IV bicarbonate drip. She also had CT abdomen pelvis done which showed severe bilateral hydronephrosis with more pronounced bladder distention. Patient had a Valerio catheter placement in the emergency room and has good urine output. Patient was seen and examined bedsidefeeling better since yesterday. Review of Systems Review of Systems All other systems reviewed & are negative unless noted below or in HPI Review of systems: Cardiovascular: denies any chest pain, palpitation Pulmonary: denies any cough, hemoptysis Gastrointestinal: denies any nausea, vomiting, diarrhea Neurological :denies any headache, numbness, weakness Endocrine: denies any polyuria, polydipsia Dermatological: denies any itching or rash [facility] Medical History (Updated 11/24/24 @ 12:05 by Tyler Valencia MD) Hypertension CKD (chronic kidney disease) Restless leg Fibromyalgia Rheumatoid arthritis Lupus Diabetes Family History Brother Heart disease Legacy FamHx Relation: Brother(s) Hypertension Legacy FamHx Relation: Brother(s) Father Heart disease Diabetes Hypertension Cancer Legacy FamHx Problem: Diagnosed with Cancer Mother Heart disease History of stroke Legacy FamHx Problem: Diagnosed with Stroke Son Heart disease Sister Hypertension Diabetes Heart disease Social History Smoking Status: Never smoker Substance Use Type: None Meds Medications & Allergies Allergies latex Allergy (Unknown, Verified 11/23/24 15:08) Unresponsive Home Medications cetirizine 10 mg tablet 10 mg PO DAILY PRN allergy symptoms 06/05/24 [History Confirmed 11/23/24] ferrous sulfate 325 mg (65 mg iron) tablet 325 mg PO DAILY 06/05/24 [History Confirmed 11/23/24] fluticasone propionate 50 mcg/actuation nasal spray,suspension 2 spray intranasal DAILY PRN nasal congestion 09/04/24 [History Confirmed 11/23/24] hydrocodone 7.5 mg-acetaminophen 325 mg tablet 1 tab PO Q8HR 09/04/24 [History Confirmed 11/23/24] metoprolol succinate 50 mg tablet,extended release 24 hr 50 mg PO DAILY 09/04/24[History Confirmed 11/23/24] pregabalin 150 mg capsule 150 mg PO Q8HR 09/04/24 [History Confirmed 11/23/24] atorvastatin 20 mg tablet 20 mg PO DAILY 09/06/24 [History Confirmed 11/23/24] insulin glargine 100 unit/mL (3 mL) subcutaneous pen (Lantus Solostar U-100 Insulin) 28 unit subcutQHS 09/06/24 [History Confirmed 11/23/24] insulin lispro 100 unit/mL subcutaneous cartridge 1 sliding scale dose subcut AC09/06/24 [History Confirmed 11/23/24] nitroglycerin 0.4 mg sublingual tablet 0.4 mg sublingual Q5M PRN chest pain 09/06/24 [History Confirmed 11/23/24] amoxicillin 500 mg capsule 500 mg PO TID 3 days #9 caps 09/08/24 [Rx Confirmed 11/23/24] cyanocobalamin (vitamin B-12) 1,000 mcg capsule 1,000 mcg PO DAILY #90 caps 09/08/24 [Rx Confirmed 11/23/24] ergocalciferol (vitamin D2) 1,250 mcg (50,000 unit) capsule 1,250 mcg PO QWEEK 2months #9 caps 09/08/24 [Rx Confirmed 11/23/24] furosemide 40 mg tablet 40 mg PO BID@0800,1600 30 days #60 tabs 09/08/24 [Rx Confirmed 11/23/24] amlodipine 5 mg tablet 5 mg PO DAILY 11/23/24 [History Confirmed 11/23/24] Active Medications: Active Medications Hydrocodone Bitart/Acetaminophen (Hydrocodone/Acetaminophen 7.5-325mg Tablet) 1tab PO Q8HR PRN PRN Reason: PRN PAIN Last Admin: 11/24/24 06:48 Dose: 1 tab Amlodipine Besylate (Amlodipine 10 Mg Tablet) 10 mg PO DAILY UZIEL Stop: 11/24/25 08:59 Last Admin: 11/24/24 09:21 Dose: 10 mg Atorvastatin Calcium (Atorvastatin 20 Mg Tablet) 20 mg PO DAILY UZIEL Stop: 11/24/25 08:59 Last Admin: 11/24/24 09:21 Dose: 20 mg Dextrose (Dextrose 50% In Water 25 Gm/50 Ml Syringe) 0 gm IV-PUSH PRN PRN PRN Reason: Hypoglycemia Stop: 11/24/25 02:41 Ergocalciferol (Ergocalciferol 1,250 Mcg (50,000 Units) Capsule) 1,250 mcg PO Mo@0900 UZIEL Stop: 12/02/25 08:59 Ferrous Sulfate (Ferrous Sulfate 324 Mg Tablet.Dr) 324 mg PO DAILY UZIEL Stop: 11/24/25 08:59 Last Admin: 11/24/24 09:21 Dose: 324 mg Fluticasone Propionate (Fluticasone Propionate Muddy 120 Muddy/16 Gm Bottle) 2 spray INTRANASAL DAILY PRN PRN Reason: nasal congestion Stop: 11/23/25 18:54 Glucose (Dextrose 40% Gel 15 Gm Tube) 0 gm PO PRN PRN PRN Reason: Hypoglycemia Stop: 11/24/25 02:41 Heparin Sodium (Porcine) (Heparin 5,000 Unit/Ml Vial) 5,000 unit SUBCUT Q12HR U[facility]IEL Stop: 11/23/25 20:59 Last Admin: 11/24/24 09:21 Dose: 5,000 unit Hydralazine HCl (Hydralazine 20 Mg/Ml Vial) 10 mg IV-PUSH Q6H PRN PRN Reason: if SBP > 185 Stop: 11/23/25 18:48 Sodium Bicarbonate 150 meq/ (Sterile Water) 1,150 mls @ 75 mls/hr IV .[id number] [facility] Stop: 11/23/25 18:59 Last Admin: 11/23/24 23:10 Dose: 75 mls/hr Ampicillin Sodium/Sulbactam Sodium (Unasyn) 3 gm in 100 mls @ 200 mls/hr IV Q12H [facility] Last Admin: 11/23/24 23:10 Dose: 200 mls/hr Insulin Aspart (Insulin Aspart 300 Units/3 Ml) 0 units SUBCUT TID.WITH.MEALS [facility]; Protocol Stop: 11/24/25 07:59 Insulin Aspart (Insulin Aspart 300 Units/3 Ml) 0 units SUBCUT TID.WM.HS [facility]; Protocol Stop: 11/24/25 07:59 Insulin Glargine (Insulin Glargine 300 Units/3 Ml Insuln.Pen) 28 units SUBCUT QHS [facility] Stop: 11/23/25 21:59 Last Admin: 11/23/24 23:11 Dose: 28 units Loratadine (Loratadine 10 Mg Tablet) 10 mg PO DAILY PRN PRN Reason: allergy symptoms Stop: 11/23/25 20:59 Nitroglycerin (Nitroglycerin 0.4 Mg Tab.Subl) 0.4 mg SUBLINGUAL Q5M PRN PRN Reason: chest pain Stop: 11/23/25 18:54 Ondansetron HCl (Ondansetron Odt 4 Mg Tab.Rapdis) 4 mg PO Q8HR PRN PRN Reason: nausea and vomiting Stop: 11/23/25 18:54 Pantoprazole Sodium (Pantoprazole 40 Mg Tablet.Dr) 40 mg PO DAILY [facility] Stop: 11/24/25 08:59 Last Admin: 11/24/24 09:21 Dose: 40 mg Pregabalin (Pregabalin 150 Mg Capsule) 150 mg PO Q8HR [facility] Stop: 05/22/25 21:59 Last Admin: 11/24/24 06:48 Dose: 150 mg Sodium Chloride (Sodium Chloride 0.9 % 10 Ml Syringe) 0 ml IV-PUSH PRN PRN PRN Reason: Flush Stop: 11/23/25 15:07 Sodium Chloride (Sodium Chloride 0.9 % 10 Ml Syringe) 10 ml IV-PUSH Q8H [facility] Stop: 11/23/25 18:14 Last Admin: 11/24/24 07:05 Dose: Not Given Exam Physical Exam Vital Signs: Temp Pulse Resp BP Pulse Ox O2 Del Method 98.2 F 62 16 129/63 98 Room Air 11/24/24 04:00 11/24/24 04:00 11/24/24 04:00 11/24/24 04:00 11/24/24 04:00 11/24/24 04:00 Narrative: General: Appears comfortable and not in distress Heart: S1-S2, no rub Lung: Bilateral air entry, no wheezing or crackles Abdomen: Soft, positive bowel sounds Extremities: No edema, no cyanosis Head: Atraumatic, normocephalic Ear: No gross hearing Deficit or external ear redness Eyes: No pallor or redness Neck: No JVD or visible mass Skin: No rashes , warm to touch SALES ACCOUNT COORDINATOR: Awake,Alert, following simple command Musculoskeletal: No swelling or limitation of movement of the large joints Psychiatric: Cooperative, normal mood and affect Results - Nephrology Labs 11/24/24 05:14 11/24/24 05:14 Labs: 11/23/24 11/23/24 11/23/24 16:11 16:51 20:52 BUN 55 H 54 H Creatinine 2.62 H 2.46 H Phosphorus Albumin 3.4 L Urine Color Colorless Urine Appearance Clear Urine pH 6.0 Ur Specific [place] 1.010 Urine Protein 100 H Urine Glucose (UA) 500 H Urine Ketones Negative Urine Occult Blood Negative Urine Nitrite Negative Ur Leukocyte Esterase 2+ H Urine RBC 1-2 Urine WBC 5-9 H Urine Bacteria None seen 11/24/24 05:14 BUN 52 H Creatinine 2.37 H Phosphorus 3.9 Albumin 2.9 L Urine Color Urine Appearance Urine pH Ur Specific [place] Urine Protein Urine Glucose (UA) Urine Ketones Urine Occult Blood Urine Nitrite Ur Leukocyte Esterase Urine RBC Urine WBC Urine Bacteria Radiology Impressions Impressions - last 24 hours: Impressions Chest X-Ray 11/23/24 16:16 IMPRESSION: CARDIOMEGALY. NO ACUTE PLEURAL-PARENCHYMAL DISEASE. Impression dictated by: Raf Potter M.D.11/23/2024 4:55 PM Dictation Location: [facility] Abdomen/Pelvis CT 11/23/24 18:09 IMPRESSION: Severe bilateral hydroureteronephrosis, question minimally more pronounced than the the prior examination however the degree of bladder distention appears increased when compared to prior exam. Lingular nodule 1 cm size, this is unchanged from the August comparison. If not previously evaluated, CT chest could be beneficial to evaluate for any additional nodules. Based on size, percutaneoussampling or PET/CT may be warranted if there are no other priors. Impression dictated by: Raf Potter M.D.11/23/2024 6:50 PM Dictation Location: [facility]-29 Foot X-Ray 11/23/24 18:45 IMPRESSION: 7 mm radiopaque foreign body noted. No definite periosteal reactionor subcutaneous emphysema. Impression dictated by: Raf Potter M.D.11/24/2024 8:07 AM Dictation Location: [facility]-29 Any impression(s) listed above is documentation that was entered by the reading physician into a diagnostic report(s) for Aislinn Wheeler. I have reviewed the report(s) and am incorporating any findings in the treatment plan of this patient where applicable. A&P - Nephrology Assessment/Plan (1) Acute kidney injury superimposed on CKD: Assessment/Problem Details: She has an ANATOLIY due to the urinary retention. She has a good urine output after Valerio catheter placement. Serum creatinine is now turning down and she is making adequate urine output. (2) Hyperkalemia: Assessment/Problem Details: She has hyperkalemia due to the ANATOLIY. I have hyperkalemia resolved with Lokelma and IV bicarbonate. (3) CKD stage 3b, GFR 30-44 ml/min: Assessment/Problem Details: She has a CKD due to the longstanding DM and HTN. Her renal function has been declining due to progression of the CKD in setting of recurrent ANATOLIY's. (4) Hydroureteronephrosis: Assessment/Problem Details: She has bilateral hydronephrosis due to the neurogenic bladder. She follows with the urology outpatient at [facility]. (5) Neurogenic bladder: Assessment/Problem Details: She has a neurogenic bladder and was seen by the urology at [facility]. She was recommended to have a surgical intervention but opted against this. She is referred to now urogynecologist at [facility] for second opinion. (6) Diabetes: Assessment/Problem Details: She has insulin-dependent type 2 diabetes mellitus and takes insulin glargine athome. (7) Hypertension: Assessment/Problem Details: Her blood pressure is high. She takes amlodipine, metoprolol and Lasix at home. Plan * Continue IV fluid. * Continue to hold home dose of the Lasix. * Continue current dose of amlodipine * Will resume home dose of the metoprolol. * Continue insulin adjust the dose as needed to keep the blood sugar between 100 to 150 mg/dL * Check renal function daily and monitoring for output * Thanks for consult. Will continue follow-up with you. Please feel free to call us with any question. Documented By: Tyler Valencia MD 11/24/24921 Signed By: 11/24/[address] [place], [place] [id number] Radiology Diagnostic study note [facility] Main [place] [address] [place] [address] CT Scan Report Signed Patient: Aislinn Wheeler MR#: [id number] : 1960 Acct:[id number] Age/Sex: 64 / F ADM Date: 5 Loc: Room: [address] [place] [address] Type: ADM IN Attending Dr: Diane Smith MD Copies to: Diane Smith MD~ Ordering Provider: Diane Smith MD Date of Service: 11/23/24 CT/CT abdomen pelvis wo con: worsening renal function CT ABDOMEN AND PELVIS WITHOUT INTRAVENOUS CONTRAST: CLINICAL HISTORY: Worsening renal function, bilateral flank pain, history of lupus chronic kidney disease diabetes and hypertension COMPARISON: CT abdomen pelvis from outside facility 09/04/2024, CT chest 07/26/2011 TECHNIQUE: Spiral images were obtained through the abdomen and pelvis without intravenous contrast.This CT exam was performed using one or more following dose reduction techniques: Automated exposure control, adjustment of the mA and/or kV according to patient size, or use of iterative reconstruction technique. FINDINGS: Lung Bases: [Lingular nodule, grossly unchanged 1 cm. Cardiomegaly. Minimal dependent hypoventilatory change.] Organs:Gallbladder absent. Liver, spleen, adrenals and pancreas unremarkable. Kidneys symmetric in size with bilateral hydroureteronephrosis suspect bilateralurothelial thickening involving the ureters and collecting systems.[Degree of hydronephrosis appears minimally progressed from the prior examination. GI: Mild to moderate retained stool. No bowel obstruction. Mild colonic diverticulosis. Appendix unremarkable.[ Pelvis:[Mild to moderate bladder distention. Bladder wall appears less pronounced than prior examination over there is more bladder distention on the current examination. Uterus and adnexa are absent.] Peritoneum/Retroperitoneum:No free air or free fluid. Moderate plaque involvingthe abdominal aorta and mesenteric and iliac vessels.. There are prominent periaortic and aortocaval lymph nodes up to 7mm in size could be reactive.[ Abd wall/Bones:Mild degenerative changes of the spine. Central plate compression due to Schmorl's node at L1 appears similar prior exam.[ CT/CT abdomen pelvis wo con IMPRESSION: Severe bilateral hydroureteronephrosis, question minimally more pronounced than the the prior examination however the degree of bladder distention appears increased when compared to prior exam. Lingular nodule 1 cm size, this is unchanged from the August comparison. If not previously evaluated, CT chest could be beneficial to evaluate for any additional nodules. Based on size, percutaneoussampling or PET/CT may be warranted if there are no other priors. Impression dictated by: Raf Potter M.D.11/23/2024 6:50 PM Dictation Location: [place] [address] Transcribed By: [facility] 11/23/241849 Dictated By: Raf Potter MD 11/23/24 183 Signed By: 11/23/241849 [facility] Work Phone: [phone]) 629-734703-31-2025 History of Present illness Narrative* Agusto Olmstead NP - 11/18/2024 12:49 PM EDTAssociated Problem(s): Chest pain Was non compliant with cardiology referral d/t hospitalization Has strong risk factors, describes chest pain as pressure, can be affiliated with activity Will refer to [facility] * Agusto Olmstead NP - 11/18/2024 12:46 PM EDTAssociated Problem(s): Right foot pain FB X2 noted on xray, I did speak with Carmencita ARCHER at 12:45pm on 11/18/24 for update I will start keflex atb as well She has appt with her on 11/19/24 * PADMAJA SULLIVAN - 11/18/2024 10:30 AM EDT Pt is having quite a bit of arthritis pain. Pt states sensors cost $70 a month and is unable to pay for that * Agusto Olmstead NP - 11/18/2024 10:30 AM EDT Images from the original note were not included. Aislinn Wheeler is a 64 y.o. female presents with chief complaint of Medicare Annual Wellness Visit Initial HPI: Diet: variety, diabetic friendly, as well as dairy Activity: none Mental Health Concerns: some depression d/t pain, and her chronic illness (no SI/HI), some memory issues Falls in the last year: yes, most recently a few days back Still driving: yes Do you pay your bills:yes Any hearing problems: somewhat Any Vision problems: eye exam, diabetic eye changes and getting injections and about a week gettinglaser surgery Any Hospitalizations in the last year: yes Specialist: kidney, eye doctor, urologist, HCPOA/Living Will:no Concerns: foot pain and swelling and redness, stepped off porch wrong on right foot, pain, swellingright 5th digit Hypertension This is a chronic problem. The current episode started more than 1 year ago. The problem has been gradually improving since onset. The problem is uncontrolled. Pertinent negatives include no anxiety,blurred vision, chest pain, headaches, palpitations, peripheral edema or shortness of breath. Thereare no associated agents to hypertension. Risk factors for coronary artery disease include diabetesmellitus, dyslipidemia and sedentary lifestyle. Past treatments include beta blockers. The current treatment provides moderate improvement. Compliance problems include medication cost and psychosocial issues. Hypertensive end-organ damage includes kidney disease. There is no history of heart failure. Diabetes She presents for her follow-up diabetic visit. She has type 2 diabetes mellitus. Her disease coursehas been improving. There are no hypoglycemic associated symptoms. Pertinent negatives for hypoglycemia include no dizziness, headaches, nervousness/anxiousness, seizures or tremors. Associated symptoms include foot paresthesias, polydipsia and polyuria. Pertinent negatives for diabetes include no blurred vision, no chest pain and no polyphagia. There are no hypoglycemic complications. Symptoms are improving. Diabetic complications include nephropathy and peripheral neuropathy. Risk factors forcoronary artery disease include diabetes mellitus, dyslipidemia and sedentary lifestyle. Current chantale betic treatment includes insulin injections. Her overall blood glucose range is >200 mg/dl. An TIMBO inhibitor/angiotensin II receptor rainer is contraindicated. She does not see a area captain.Eye exam is current. SUBJECTIVE: MEDICATIONS: Current Outpatient Medications Medication Instructions amLODIPine (NORVASC) 10 mg, Oral, Daily atorvastatin (LIPITOR) 20 mg, Oral, Nightly cephalexin (KEFLEX) 500 mg, Oral, 2 times daily cetirizine (ZYRTEC) 10 mg, Oral, Daily Continuous Glucose Ecg Technician (Dexcom G7 Ecg Technician) device 1 each, Does not apply, Daily Continuous Glucose Sensor (Dexcom G7 Sensor) misc 1 each, Does not apply, Daily cyanocobalamin (VITAMIN B-12) 1,000 mcg, Daily denosumab (PROLIA) 60 mg, Every 6 months ferrous sulfate 325 mg, Daily with breakfast fluticasone (Flonase) 50 MCG/ACT nasal spray 2 sprays, Each Nostril, Daily, Shake gently. Before first use, prime pump. After use, clean tip and replace cap. furosemide (LASIX) 40 mg, 2 times daily HYDROcodone-acetaminophen ([place]) 7.5-325 MG tablet 1 tablet, 3 times [...] of Systems Constitutional: Negative for appetite change, chills and fever. HENT: Negative for congestion, ear pain and sore throat. Eyes: Negative for blurred vision, pain, discharge, redness and visual disturbance. Respiratory: Negative for cough, shortness of breath and wheezing. Cardiovascular: Negative for chest pain, palpitations and leg swelling. Gastrointestinal: Negative for abdominal pain, blood in stool, constipation, diarrhea, nausea and vomiting. Genitourinary: Negative for difficulty urinating, dysuria and frequency. Musculoskeletal: Positive for arthralgias. Negative for back pain, joint swelling and myalgias. Skin: Negative for rash and wound. Neurological: Negative for dizziness, tremors, seizures, syncope and headaches. Psychiatric/Behavioral: Negative for behavioral problems, self-injury and suicidal ideas. The patient is not nervous/anxious. Hematological: Does not bruise/bleed easily. Endocrine: Positive for polydipsia and polyuria. Negative for polyphagia. Allergic/Immunologic: Negative for environmental allergies and food allergies. PAST MEDICAL HISTORY Past Medical History: Diagnosis Date Amputation of left great toe ([facility]) Cervical cancer ([facility]) 10/11/2023 had Hysterectomy Charcot's joint of foot, left 10/11/2023 Chronic kidney disease, stage III (moderate) (HCC) ([facility]) 10/11/2023 Fatty liver 10/11/2023 History of hysterectomy [...] of nail of digit of hand Osteoporosis ([facility]) 10/11/2023 Post-menopausal 10/11/2023 Rheumatoid arthritis ([facility]) 10/11/2023 RSD (reflex sympathetic dystrophy) 10/11/2023 Type 2 diabetes mellitus with diabetic neuropathy, unspecified whether alf insulin use ([facility]) 10/11/2023 Visual impairment 10/11/2023 HAD BILATERAL CATARCT [...] in her father. OBJECTIVE: Visit Vitals BP (!) 164/96 (BP Location: Left arm, Patient Position: Sitting, BP Cuff Size: Adult long) Pulse 73 Temp 97.8 F (Temporal) Resp 19 Wt 131 lb SpO2 99% BMI 25.58 kg/m Smoking Status Never BSA 1.59 m Physical Exam Vitals and nursing note [...] Tenderness: There is no abdominal tenderness. Musculoskeletal: Cervical back: Normal range of motion and neck supple. Comments: Left foot: missing left great toe, surgically absent Hammer toe 2nd toe Right foot: mild erythema, about the right 5th toe, mild tenderness Underside of right 5th toe blood blister present No drainage Sensation decreased to bilat feet Lymphadenopathy: Cervical: No cervical adenopathy. Skin: General: [...] ASSESSMENT AND PLAN: Follow up in about 3 weeks (around 12/09/2024) for Recheck. Problem List Items Addressed This Visit Type 2 diabetes mellitus with hyperglycemia, with long-term current use of insulin ([facility]) Check blood sugars daily, notify if <70 [...] A1c: 9.4% 11/18/24, 08/13 10.1% Relevant Orders POCT glycosylated hemoglobin (Hb A1C) docked device (Completed) Basic metabolic panel Ambulatory referral to Cardiology Neurogenic bladder Relevant Orders Ambulatory referral to Urogynecology Essential (primary) hypertension ([facility]) Please check blood pressure daily and record DASH diet Limit caffeine Take medication as directed Contact office if chest pain, pressure, dizziness, shortness of breath, swelling legs Recommend slow position changes Current meds: amlodipine and metoprolol Relevant Medications amLODIPine (Norvasc) 10 MG tablet Other Relevant Orders Basic metabolic panel Ambulatory referral to Cardiology Type 2 diabetes mellitus with diabetic neuropathy, with long-term current use of insulin ([facility]) Recommend freq foot checks, proper fitting shoes And better glucose control RSD (reflex sympathetic dystrophy) Follows with pain mgmt for this Encounter for subsequent annual wellness visit (AWV) in Medicare patient - Primary Reviewed Ht/Wt/BMI Recommend eye exam yearly Recommend dental exams twice a year Balance work/leisure activities Exercises is recommended most days of the week (appropriate as chronic conditions allow) Follow up yearly and prn Hand out on living will and HCPOA Continuous leakage of urine Relevant Orders Ambulatory referral to Urogynecology Chronic kidney disease, stage 4 (severe) ([facility]) Long standing uncontrolled HTN and DM Multiple attempts to get pt to specialists, does not follow through She is established with local 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 She has been referred to local area Endo and Varnish [facility], but does not go to her appts as scheduled and has been discharged, and does not appear to have a strong support system Relevant Orders Basic metabolic panel CBC and differential Iron level FPC (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 ([facility]) Non compliance w medication regimen Difficulty with follow ups, taking all meds and getting to all appts Now has pt advocateReyes Right foot pain FB X2 noted on xray, I did speak with Carmencita ARCHER at 12:45pm on 11/18/24 for update I will start keflex atb as well She has appt with her on 11/19/24 Relevant Medications cephalexin (Keflex) 500 MG capsule Chest pain Was non compliant with cardiology referral d/t hospitalization Has strong risk factors, describes chest pain as pressure, can be affiliated with activity [facility] Relevant Orders Ambulatory referral to Cardiology * Agusto Olmstead NP - 11/18/2024 6:30 AM EDTAssociated Problem(s): Encounter for subsequent annual wellness visit (AWV) in Medicare patient Reviewed Ht/Wt/BMI Recommend eye exam yearly Recommend dental exams twice a year Balance work/leisure activities Exercises is recommended most days of the week (appropriate as chronic conditions allow) Follow up yearly and prn Hand out on living will and HCPOA * Agusto Olmstead NP - 11/18/2024 6:29 AM EDTAssociated Problem(s): Non compliance w medication regimen Difficulty with follow ups, taking all meds and getting to all appts Now has pt advocate, S Canela * Agusto Olmstead NP - 11/18/2024 6:29 AM EDTAssociated Problem(s): Type 2 diabetes mellitus with hyperglycemia, with long-term current use of insulin ([facility]) Check blood sugars daily, notify if <70 [...] insulin, A1c: 9.4% 11/18/24, 08/13 10.1% * Agusto Olmstead NP - 11/18/2024 6:28 AM EDTAssociated Problem(s): Chronic kidney disease, stage 4 (severe) ([facility]) Long standing uncontrolled HTN and DM Multiple attempts to get pt to specialists, does not follow through She is established with local 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 She has been referred to local area Endo and [facility], but does not go to her appts as scheduled and has been discharged, and does not appear to have a strong support system * Agusto Olmstead NP - 11/18/2024 6:27 AM EDTAssociated Problem(s): Essential (primary) hypertension ([facility]) Please check blood pressure daily and record DASH diet Limit caffeine Take medication as directed Contact office if chest pain, pressure, dizziness, shortness of breath, swelling legs Recommend slow position changes Current meds: amlodipine and metoprolol * Agusto Olmstead NP - 11/18/2024 6:27 AM EDTAssociated Problem(s): Type 2 diabetes mellitus with diabetic neuropathy, with long-term current use of insulin ([facility]) Recommend freq foot checks, proper fitting shoes And better glucose control * Agusto Olmstead NP - 11/18/2024 6:27 AM EDTAssociated Problem(s): RSD (reflex sympathetic dystrophy) Follows with pain mgmt for this documented in this [facility]03-31-2025 Instructions* Patient Instructions* Agusto Olmstead NP - 11/18/2024 10:30 AM EDT Blood pressure: We are going to change the dose on the amlodipine to 10mg once day. Follow up in 3 week for blood pressure check, continue the metoprolol at current dose I am going to re send an referral [facility] in [place], for your chest pain I will also send a referral to Dr Baez (uro/provider relations consultant) documented in this [facility]03-28-2025 Miscellaneous Notes* Telephone Encounter - Barbara Lucero RN - 11/15/2024 7:42 AM EDT Error on Et[place]ah prescription. Two different fill dates listed. This is a corrected RX. Previously printed Et[place]ah RX signed today voided. documented in this [facility]03-28-2025 Telephone encounter Note* Telephone Encounter - Barbara Lucero RN - 11/15/2024 7:42 AM EDT Error on Et[place] prescription. Two different fill dates listed. This is a corrected RX. Previously printed Etowah RX signed today voided. [facility]03-27-2025 Miscellaneous Notes* Telephone Encounter - Lila Che RN - 11/14/2024 11:31 AM EDT Last Office Visit: 09/29/2024 Next Office Visit: 01/08/2025 Last Urine Drug Screen:04/24/2024 Lab Results Component Value Date BENZOSCRN Negative 08/09/2023 OARRS appropriate [facility] Telephone encounter Note* Telephone Encounter - Lila Che RN - 11/14/2024 11:31 AM EDT Last Office Visit: 09/29/2024 Next Office Visit: 01/08/2025 Last Urine Drug Screen:04/24/2024 Lab Results Component Value Date BENZOSCRN Negative 08/09/2023 OARRS appropriate [facility]03-06-2025 Miscellaneous Notes* Telephone Encounter - Asia Barreto RN - 10/24/2024 12:19 PM EST Last Office Visit: 10/09/2024 Next Office Visit: 01/08/2025 Last Urine Drug Screen: Lab Results Component Value Date BENZOSCRN Negative 08/09/2023 OARRS appropriate * Telephone Encounter - Asia Barreto RN - 10/24/2024 12:19 PM EST Barbara pt fill date is tomorrow, she is requesting a call as soon as Dr Miranda signs her prescriptions. She is aware we will be here half day tomorrow. documented [facility] Telephone encounter Note* Telephone Encounter - Asia Barreto RN - 10/24/2024 12:19 PM EST Last Office Visit: 10/09/2024 Next Office Visit: 01/08/2025 Last Urine Drug Screen: Lab Results Component Value Date BENZOSCRN Negative 08/09/2023 OARRS appropriate [facility]03-06-2025 Telephone encounter Note* Telephone Encounter - Asia Barreto RN - 10/24/2024 12:19 PM EST Barbara, pt fill date is tomorrow, she is requesting a call as soon as Dr Miranda signs her prescriptions. She is aware we will be here half day tomorrow. [facility]02-20-2025 Miscellaneous Notes* Telephone Encounter - Yesenia Burnett RN - 10/10/2024 12:26 PM EST Last OV: 10/09/2024 Next OV: 01/08/2025 OARRS appropriate: yes Last UDS: 04/24/2024 Pharm[facility]: [facility] documented in this [facility] Telephone encounter Note* Telephone Encounter - Yesenia Burnett RN - 10/10/2024 12:26 PM EST Last OV: 10/09/2024 Next OV: 01/08/2025 OARRS appropriate: yes Last UDS: 04/24/2024 Pharmacy: [facility]02-19-20[facility] History of Present illness Narrative* Sweta Ch PA-C - 10/09/2024 11:15 AM EST [facility] [address] [place] [address] Patient: Aislinn Wheeler Sex: female : 1960 Age: 64 y.o. PCP: AGUSTO OLMSTEAD, HAIR DRYER-WEB METHODS DEVELOPER 10/09/2024 Aislinn Wheeler is here for a(n) follow up for bilateral arm pain due to her [employer] [facility] work injury. She reports she is having numerous health problems and has been hospitalized multiple times since last visit for kidney failure and uncontrolled hypertension. She has not been able to complete consult with Dr. Villarreal ordered at lat visit. Date of onset of pain: 2002 , pain has lasted greater than 3 months. Chief Complaint Patient presents with Extremity Pain HPI: Right Stellate Ganglion blocks offer 70% [...] quality of the pain is described as aching and stabbing. The pain does not radiate. The pain is at a severity of 8/10. The pain is severe. The pain has been Constant since the incident. Associated symptoms include muscle weakness (BUE), numbness (bilateral arms) and tingling (bilateral arms). Pertinent negatives include no chest pain. The symptoms are aggravated by movement, lifting and palpation (sitting, lifting, lying, twisting, leaning on cart, cold/heat). Treatments tried: Tizanidine, Lyrica,Gabapentin, [place], Elevation, NSAIDs x 2 (Ibuprofen, Aleve), Flexeril, BioFreeze, Immobilization w/min relief, Celebrex & compound cream w/no relief, Rt Stellate Ganglion NB w/mod relief. The treatment provided moderate relief. The effect of pain on patient's ADLS: Moderate Impairment. Past Medical History: Diagnosis Date Arthritis RHEUMATOID Arthritis OSTEOARTHRITIS Asthma At risk for UTI related to indwelling catheter Broken toes 08/2022 Bronchitis Cancer ([facility]) UTERINE Chronic kidney disease 2015 stage 3 per pt 04/05/23 COVID-19 virus infection 09/28/2021 Diabetes mellitus ([facility]) Fibromyalgia GERD (gastroesophageal reflux disease) History of degenerative disc disease Hypertension Joint pain Lupus Mitral valve prolapse Osteoarthritis Pneumonia released from hospital on 11/12/21 RSD (reflex sympathetic dystrophy) Stroke ([facility]) Past Surgical History: Procedure Laterality Date AMPUTATION OF REPLICATED TOES Left 06/2022 ANKLE SURGERY CATARACT EXTRACTION, BILATERAL Bilateral 03/22 and 04/13 CHOLECYSTECTOMY HYSTERECTOMY INJECTION BLOCK NERVE STELLATE GANGLION NECK Right 03/15/2024 Performed by Zackery Miranda MD at [facility] INJECTION BLOCK NERVE STELLATE GANGLION NECK Right 10/13/2023 Performed by Zackery Miranda MD at [facility] INJECTION BLOCK NERVE STELLATE GANGLION NECK Right 12/23/2022 Performed by Zackery Miranda MD at [facility] INJECTION BLOCK NERVE STELLATE GANGLION NECK Right 05/06/2022 Performed by Zackery Miranda MD at [facility] INJECTION BLOCK NERVE STELLATE GANGLION NECK Right 10/15/2021 Performed by Zackery Miranda MD at [facility] INJECTION BLOCK STELLATE GANGLION N/A 02/17/2017 Performed by Zackery Miranda MD at [facility] INJECTION BLOCK STELLATE GANGLION NECK Right 06/18/2018 Performed by Zackery Miranda MD at [facility] INJECTION BLOCK STELLATE GANGLION NECK N/A 05/15/2017 Performed by Zackery Miranda MD at [facility] INJECTION BLOCK STELLATE GANGLION NECK Right Right 05/22/2020 Performed by Zackery Miranda MD at [facility] INJECTION BLOCK STELLATE GANGLION NECK Right N/A 10/04/2019 Performed by Zackery Miranda MD at [facility] INJECTION BLOCK STELLATE GANGLION NECK Right Right 05/10/2019 Performed by Zackery Miranda MD at [facility] INJECTION BLOCK STELLATE GANGLION NECK Right Right 12/31/2018 Performed by Zackery Miranda MD at [facility] INJECTION BLOCK STELLATE GANGLION NECK Right Right 10/09/2017 Performed by Zackery Miranda MD at [facility] KNEE SURGERY REMOVAL STIMULATOR SPINAL CORD N/A 12/29/2017 Performed by Zackery Miranda MD at [facility] Allergies Allergen Reactions Latex Added [...] Resource Strain: Medium Risk (10/11/2023) Received from [facility] Overall Financial Resource Strain (CARDIA) Difficulty of Paying Living Expenses: Somewhat hard Food Insecurity: No Food Insecurity (10/09/2024) Hunger Screening Food Insecurity - Worry: Never True Food Insecurity - Inability: Never True Transportation Needs: No Transportation Needs (10/11/2023) Received from [facility] PRAPARE - Transportation Lack of Transportation (Medical): No Lack of Transportation (Non-Medical): No Physical Activity: Inactive (10/11/2023) Received from [facility] Exercise Vital Sign Days of Exercise per Week: 0 days Minutes of Exercise per Session: 0 min Stress: Stress Concern Present (10/11/2023) Received from [facility] [employer] [place] [employer] - Occupational Stress Questionnaire Feeling of Stress : Very much Social Connections: Socially Isolated (10/11/2023) Received from [facility] Social Connection and Isolation Panel [NHANES] Frequency of Communication with Friends and Family: More than three times a week Frequency of Social Gatherings with Friends and Family: More than three times a week Attends Sikh Services: Never Active Member of Clubs or Organizations: No Attends Club or Organization Meetings: Never Marital Status: Interpersonal Safety: Unknown (10/12/2023) Received from [facility] Safety & Environment Fear of Current or Ex-Partner: Not on file Emotionally Abused: Not on file Physically Abused: Not on file Sexually Abused: Not on file Physically or Sexually Abused: Not on file Housing Instability: Low Risk (10/11/2023) [facility] Housing Stability Vital Sign Unable to Pay for Housing in the Last Year: No Number of Places Lived in the Last Year: 1 Unstable Housing in the Last Year: No Review of Systems Constitutional: Negative. Negative for chills. HENT: Negative. Eyes: Negative. Respiratory: Negative. Negative for cough and shortness of breath. Cardiovascular: Negative. Negative for chest pain. Gastrointestinal: Positive for diarrhea. Endocrine: Negative. Genitourinary: Positive for frequency and urgency. Musculoskeletal: Negative. Gurjit Arms Skin: Negative. Allergic/Immunologic: Negative. Neurological: Positive for tingling (bilateral arms) and numbness (bilateral arms). Hematological: Negative. Psychiatric/Behavioral: Negative. Vital Signs: BP (!) 200/97 (BP Site: Left Arm, BP Postition: Sitting) Pulse 78 Resp 20 Physical Exam: GENERAL - Healthy patient that [...] during discussion, demonstrated appropriate cognitive reasoning and understandingof the medical condition by asking appropriate questions regarding the diagnosis and risks/benefits/alternatives of treatment modalities. No obvious deficits in memory, reasoning, or intellect. Extremity Exam: Examination of the Right upper extremity reveals notable Hyperpathia and allodynia. Notable Atrophyand diffuse weakness of the extremity. Notable Shiny [...] Assessment/Treatment Plan: Aislinn was seen today for extremity pain. Diagnoses and all orders for this visit: Complex regional pain syndrome type 1 of right upper extremity Continue [place] 5/325 mg TID PRN and Lyrica 150 mg TID Monitor Follow up 3 months The medications I [...] as to the type of medication prescribed alongwith directions for use. Potential side effects have [...] medication that requires intensive monitoring for toxicity Et[place] and Lyrica. OARRS and most recent UDS were reviewed, discussed and appropriate for medications prescribed. [place] pill count completed at today's office visit. Dose: 7.5/325 mg TID Quantity Dispensed 90 Quantity Remaining 50 Fill date on prescription bottle 09/25/2024 appropriate Patient educated to bring medication to every office visit. Treatment plans discussed but not opted for at this time: Repeat Stellate ganglion block injections and proceed with Neurosurgical consult. Patient would like to proceed with the current outlined treatment plan before moving forward with any other options. At this time it does not appear that the patient s pain is under adequate control with conservativecare, however she has multiple comorbid conditions that need addressed before any consideration forsurgical intervention for permanent SCS. . It is felt that we should continue this approach and continue to monitor these symptoms and address them again in the future if they become more problematic. This approach was discussed with the patient and they are in agreement. The spine model was demonstrated and CT was reviewed and used to explain the condition. Chronic conditions not treated during this visit that affected my overall medical decision making: Diabetes, uncontrolled hypertension, Kidney failure OARRS: Reviewed. Scribe Statement: Agusto Humphries CNA, scribed for and in the presence of SWETA CH PA-C who performed the above service. Provider Statement: ISWETA PA-C, personally performed the services described in the documentation, as scribed by Agusto Gray CNA in my presence, and it is both accurate and complete. Agusto Gray CNA 10/09/24 1241 Sweta Ch PA-C 10/09/24 1306 documented in [facility]01[facility] Miscellaneous Notes* Telephone Encounter - Barbara Lucero RN - 09/13/2024 11:56 AM EST Last OV: 07/03/24 Next OV: 10/09/24 OARRS appropriate: Yes Last UDS: 04/24/24 Pharmacy: [facility] Patient requested Lyrica refill as well. OARRS states last time filled was 07/26/24. Spoke with pharmacy who confirms that was the last time it was filled. TC to patient to see if she has been taking,she confirms she has, she has additional pills in another bottle. Advised she needs to call the pharmacy for a refill, PVU. documented in this [facility]01-[facility]25 Telephone encounter Note* Telephone Encounter - Barbara Lucero RN - 09/13/2024 11:56 AM EST Last OV: 07/03/24 Next OV: 10/09/24 OARRS appropriate: Yes Last UDS: 04/24/24 [facility]: [facility] Patient requested Lyrica refill as well. OARRS states last time filled was 07/26/24. Spoke with pharmacy who confirms that was the last time it was filled. TC to patient to see if she has been taking,she confirms she has, she has additional pills in another bottle. Advised she needs to call the pharmacy for a refill, PVU. [facility]01-22-2025 History of Present illness Narrative* PADMAJA SULLIVAN - 09/11/2024 11:00 AM EST Pt is feeling weak, eyes are blurry and cloudy (could just be her eyes) * Agusto Olmstead NP - 09/11/2024 11:00 AM EST Images from the original note were not included. Aislinn Wheeler is a 64 y.o. female presents with chief complaint of Hypertension HPI: Recent hospitalization at [facility], d/t CKD, and HTN, sent home on furosemide 40mg BID has not started on furosemide as of yet Hypertension This is a chronic problem. The current episode started more than 1 year ago. The problem is unchanged. The problem is uncontrolled. Associated symptoms include blurred vision, headaches and malaise/fatigue. Pertinent negatives include no chest pain, neck pain, palpitations, peripheral edema or shortness of breath. There are no associated agents to hypertension. Risk factors for coronary artery disease include diabetes mellitus, dyslipidemia, sedentary lifestyle and post- menopausal state. Past treatments include calcium channel blockers, beta blockers and diuretics. The current treatment provides moderate improvement. Compliance problems include psychosocial issues. Hypertensive end-organ damage includes kidney disease, PVD and retinopathy. There is no history of heart failure. Identifiable causes of hypertension include chronic renal disease. Diabetes She presents for her follow-up diabetic visit. She has type 2 diabetes mellitus. Her disease coursehas been fluctuating. Hypoglycemia symptoms include headaches. Pertinent negatives for hypoglycemiainclude no dizziness, nervousness/anxiousness, seizures or tremors. Associated symptoms include blur red vision, fatigue, foot paresthesias, polydipsia, polyuria and visual change. Pertinent negativesfor diabetes include no chest pain, no polyphagia and no weight loss. There are no hypoglycemic complications. Diabetic complications include nephropathy, peripheral neuropathy, PVD and retinopathy. Risk factors for coronary artery disease include diabetes mellitus, hypertension, post- menopausal and sedentary lifestyle. Current diabetic treatment includes insulin injections. She is compliant withtreatment most of the time. Her weight is stable. She rarely participates in exercise. Her overall blood glucose range is 180-200 mg/dl. An TIMBO inhibitor/angiotensin II receptor rainer is not being t aken. She does not see a area captain.Eye exam is not current. SUBJECTIVE: MEDICATIONS: Current Outpatient Medications Medication Instructions amLODIPine (NORVASC) 5 mg, Oral, Daily amoxicillin (AMOXIL) 500 mg, 3 times daily atorvastatin (LIPITOR) 20 mg, Daily calcitriol (ROCALTROL) [...] furosemide (LASIX) 40 mg, 2 times daily glucose blood (True Metrix Blood Glucose Test) test strip 4 times daily use HYDROcodone-acetaminophen ([place]) 7.5-325 MG tablet 1 tablet, 3 times [...] congestion, ear pain and sore throat. Eyes: Positive for blurred vision. Negative for pain, discharge, redness and visual disturbance. Respiratory: Negative for cough, shortness of breath and wheezing. Cardiovascular: Negative for chest pain, palpitations and leg swelling. Gastrointestinal: Negative for abdominal pain, blood in stool, constipation, diarrhea, nausea and vomiting. Genitourinary: Positive for difficulty urinating. Negative for dysuria and frequency. Musculoskeletal: Negative for arthralgias, back pain, joint swelling, myalgias and neck pain. Skin: Negative for rash and wound. Neurological: Positive for numbness and headaches. Negative for dizziness, tremors, seizures and syncope. Psychiatric/Behavioral: Negative for behavioral problems, self-injury and suicidal ideas. The patient is not nervous/anxious. Hematological: Does not bruise/bleed easily. Endocrine: Positive for polydipsia and polyuria. Negative for polyphagia. Allergic/Immunologic: Negative for environmental allergies and food allergies. PAST MEDICAL HISTORY Past Medical History: Diagnosis Date Amputation of left great toe ([facility]) Cervical cancer ([facility]) 10/11/2023 had Hysterectomy Charcot's joint of foot, left 10/11/2023 Chronic kidney disease, stage III (moderate) ([facility]) ([facility]) 10/11/2023 Fatty liver 10/11/2023 History of hysterectomy [...] of nail of digit of hand Osteoporosis ([facility] [facility] 10/11/2023 Post-menopausal 10/11/2023 Rheumatoid arthritis ([facility] 10/11/2023 RSD (reflex sympathetic dystrophy) 10/11/2023 Type 2 diabetes mellitus with diabetic neuropathy, 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 OBJECTIVE: Visit Vitals BP (!) 200/100 (BP Location: Right arm, Patient Position: Sitting, BP Cuff Size: Adult long) Pulse 74 Temp 98.8 F (Temporal) Resp 18 Ht 5' Wt 131 lb SpO2 97% BMI 25.58 kg/m Smoking Status Never BSA 1.59 m Physical Exam Vitals and nursing note reviewed. Constitutional: General: She is not in acute distress. Appearance: Normal appearance. She is not ill-appearing or diaphoretic. HENT: Head: Normocephalic and atraumatic. Right Ear: [...] sounds: Normal breath sounds. No wheezing or rales. Abdominal: General: Bowel sounds are [...] hyperglycemia, with long-term current use of insulin ([facility] Check blood sugars daily, notify if <70 [...] does not regularly use her bolus insulin Relevant Medications Continuous Glucose Ecg Technician (Dexcom G7 Ecg Technician) device Continuous Glucose Sensor (Dexcom G7 Sensor) misc insulin glargine (Lantus) 100 UNIT/ML injection Neurogenic bladder Essential (primary) hypertension ([facility] Please check blood pressure daily and record DASH diet Limit caffeine Take medication as directed Contact office if chest pain, pressure, dizziness, shortness of breath, swelling legs Recommend slow position changes Current meds: only metoprolol Will restart amlodipine at 5mg, looks as though she has not had this filled in some time and likelyrelated to her elevated blood pressures, she will fu in office in 2 weeks for this Type 2 diabetes mellitus with diabetic neuropathy, with long-term current use of insulin ([facility] Reports increase in neuropathy symptoms, is on lyrica at 150mg TID, also takes percocet for RSD Relevant Medications Continuous Glucose Ecg Technician (Dexcom G7 Ecg Technician) device Continuous Glucose Sensor (Dexcom G7 Sensor) misc insulin glargine (Lantus) 100 UNIT/ML injection Malignant neoplasm of cervix uteri, unspecified (CMS/HCC) - Primary Had hyst Rheumatoid arthritis, unspecified ([facility]) Does not follow with Rheumatology Chronic kidney disease, stage 4 (severe) ([facility]) Long standing uncontrolled HTN and DM Multiple attempts to get pt to specialists, does not follow through She is established with local Knitting Demonstrator, it is of note that in the last week she was admitted [facility] for elevated kidney function and potassium, med adjustments as well. Urged pt to please continue to follow with Nephrology Goal: bp and DM control, although there again her compliance with blood sugar checking is difficult. She has been referred to local area Endo and Varnish Maker, but does not go to her appts as scheduled and has been discharged, and does not appear to have a strong support system Immunodeficiency due to conditions classified elsewhere ([facility] FPC (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 ([facility]) Relevant Medications Continuous Glucose Ecg Technician (Dexcom G7 Ecg Technician) device Continuous Glucose Sensor (Dexcom G7 Sensor) misc * Agusto Olmstead NP - 09/11/2024 7:10 AM ESTAssociated Problem(s): Rheumatoid arthritis, unspecified ([facility]) Does not follow with Rheumatology * Agusto Olmstead NP - 09/11/2024 7:10 AM ESTAssociated Problem(s): Type 2 diabetes mellitus with hyperglycemia, with long-term current use of insulin ([facility]) Check blood sugars daily, notify if <70 [...] does not regularly use her bolus insulin * Agusto Olmstead NP - 09/11/2024 7:09 AM ESTAssociated Problem(s): Malignant neoplasm of cervix uteri, unspecified (CMS/HCC) Had hyst * Agusto Olmstead NP - 09/11/2024 7:09 AM ESTAssociated Problem(s): Chronic kidney disease, stage 4 (severe) (CMS/HCC) Long standing uncontrolled HTN and DM Multiple attempts to get pt to specialists, does not follow through She is established with local Knitting Demonstrator, it is of note that in the last week she was admitted [facility] for elevated kidney function and potassium, med adjustments as well. Urged pt to please continue to follow with Nephrology Goal: bp and DM control, although there again her compliance with blood sugar checking is difficult. She has been referred to local area Endo and Varnish Maker, but does not go to her appts as scheduled and has been discharged, and does not appear to have a strong support system * Agusto Olmstead NP - 09/11/2024 7:09 AM ESTAssociated Problem(s): Essential (primary) hypertension ([facility] Please check blood pressure daily and record DASH diet Limit caffeine Take medication as directed Contact office if chest pain, pressure, dizziness, shortness of breath, swelling legs Recommend slow position changes Current meds: only metoprolol Will restart amlodipine at 5mg, looks as though she has not had this filled in some time and likelyrelated to her elevated blood pressures, she will fu in office in 2 weeks for this * Agusto Olmstead NP - 09/11/2024 7:08 AM ESTAssociated Problem(s): Type 2 diabetes mellitus with diabetic neuropathy, with long-term current use of insulin ([facility] Reports increase in neuropathy symptoms, is on lyrica at 150mg TID, also takes percocet for RSD documented in this [facility]Saint [facility] [id number] Instructions* Patient Instructions* Agusto Olmstead NP - 09/11/2024 11:00 AM EST Start your furosemide 40mg prescription at the pharmacy this should help your blood pressure and high potassium We have referral for Gynecology/Urolgist: I will give you a number for this Dr Kristen Domínguez: [phone] this is for your bladder , [facility] [place], please call this office to schedule Also a referral to [facility]parator you need to call and set you up they tried to call you noresponse: [phone] Diabetes: I ordered continuous glucose monitor: Dexcom 7, 2 parts to this the sensor (change it every 10 days) and reader (insurance pays for this once every 5 years) Area on you lung we need to look at with PET scan slow growing want to make sure no cancer, probably will be done at [place] or [facility] I need to do some checking documented in this [facility]01-20-2025 Miscellaneous Notes* Telephone Encounter - Heidy Belcher CMA - 09/09/2024 10:58 AM EST CORN CUTTER OPERATOR REFERRAL AGUSTO TERRANCE - CHEST PAIN, UNSPECIFIED TYPE - PHONED PT AND LM ON VM TO CALL OFFICE TO SCHED APPT - 08/28/24 JSL LMOM TO SCHED CORN CUTTER OPERATOR APPT [facility] 09-02-24 LMOM TO CALL AND SET UP CORN CUTTER OPERATOR APPT [facility]; LETTER MAILED TO PT 09/09/24 [facility] Telephone encounter Note* Telephone Encounter - Heidy Belcher CMA - 09/09/2024 10:58 AM EST CORN CUTTER OPERATOR REFERRAL AGUSTO TERRANCE - CHEST PAIN, UNSPECIFIED TYPE - PHONED PT AND LM ON VM TO CALL OFFICE TO SCHED APPT - 08/28/24 JSL LMOM TO SCHED CORN CUTTER OPERATOR APPT [facility] 09-02-24 LMOM TO CALL AND SET UP CORN CUTTER OPERATOR APPT [facility]; LETTER MAILED TO PT 09/09/24 JSL [facility] [employer] [id number] [place] [address] Nephrology Progress Note Signed Patient: Aislinn Wheeler MR#: [id number] : 1960 Acct:[id number] Age/Sex: 64 / F Adm Date: 5 Loc: Room: 9F3853-3 Type: ADM IN Attending Dr: Gilmer Tai MD Copies to: ~ Date of Service: 09/08/2024 Subjective Subjective Narrative: Ms. Dewitt is a 64-year-old white female with history of DM2 that seems to be outof control and CKD stage IIIb with serum creatinine Paremyd between 1.3 to 1.5 mg/dL. She normally follow-up in our renal clinic with Dr. Sprague and recentlycreatinine started to increase more than 2 mg/dL. 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 Patient is known to have neurogenic bladder she uses self cath at home for quitesome time however recently she ran out of supplies. Patient was seen by Dr. Sprague in the office on 115 and had creatinine was found to be 2.7 mg/dL much higher than previous baseline, potassium 5.8 and blood pressure 210/110. Initi ally she went to the [place] ER on 09/04 and she had a CT scan of the abdomen that I personally reviewed the report that showed bilateral hydronephrosis to the level of the bladder neck with evidenceof bladder wall thickness and urethritis. Patient stated that bladder scan was only 150 cc urine and she was able to micturate. She was started on oral antibiotics for UTI and was sent home. Patient was called again to come to [facility] as her potassium continues to be elevated 5.7 mEq/L with possibility of dialysis need. Evaluation in ER showed elevated blood pressure 210, potassium 5.7 and creatinine 2.7. Patient was treated by hyperkalemia protocol. Bladder scan showed 249 cc urine however it was not a postvoid residual. Urine analysis was suggestive of UTI, patientwas started on ceftriaxone after sending urine culture. Nephrology was consulted for hyperkalemia and ANATOLIY. Interval history: Patient was not able to tolerate Valerio catheter and she is currently using intermittent cath and she is doing well. CT scan of the abdomen and bilateral ultrasound showed persistent bilateral hydronephrosis moderateto severe. Creatinine finally stabilized after using straight cath 3.08 mg/dL. She has good urine output on furosemide 40 mg twice a day. Potassium is down tosafe level 4.7 mmol/L. Urology consultation is appreciated. Patient will continue straight cath and follow-up with [facility]. Exam Physical Exam Vital Signs: Temp Pulse Resp BP Pulse Ox O2 Del Method 36.6 C 64 16 169/79 H 96 Room Air 09/08/24 08:00 09/08/24 08:00 09/08/24 08:00 09/08/24 08:00 09/08/24 08:00 09/08/24 08:00 Narrative: Constitutional: Appears comfortable and not in distress HEENT: No pallor or Jaundice Cardiovascular: RRR, normal S1-S2, no gallop or rub, No JVD Respiratory: Good bilateral air entry no wheezing or crackles Gastrointestinal: Soft, non tender, positive bowel sounds Extremities: No edema Skin: No rashes or bruises Musculoskeletal: No joints swellings or inflammation Neurology: Awake, alert, oriented ?3, No focal motor or sensory deficits Psych: Normal mood and affect Objective Intake and Output I&O: Intake & Output 09/05/24 09/06/24 09/07/24 09/08/24 23:59 23:59 23:59 23:59 Intake Total 150 / 150 1520 / 1520 450 / 450 Output Total 100 / 100 600 / 600 2125 / 2125 775 / 775 Balance -100 / -100 -450 / -450 -605 / -605 -325 / -325 Weight 59.7 kg 53.6 kg 59.5 kg 54.7 kg Meds and Allergies Meds: Active Medications Acetaminophen (Acetaminophen 500 Mg Tablet) 1,000 mg PO Q6H PRN PRN Reason: Fever or Pain Stop: 09/06/25 02:45 Last Admin: 09/06/24 08:56 Dose: 1,000 mg Hydrocodone Bitart/Acetaminophen (Hydrocodone/Acetaminophen 7.5-325mg Tablet) 1tab PO Q8HR [facility] Last Admin: 09/08/24 06:08 Dose: 1 tab Atorvastatin Calcium (Atorvastatin 20 Mg Tablet) 20 mg PO DAILY [facility] Stop: 09/07/25 08:59 Last Admin: 09/08/24 08:45 Dose: 20 mg Bethanechol Chloride (Bethanechol 10 Mg Tablet) 10 mg PO TID [facility] Stop: 09/07/25 13:59 Last Admin: 09/08/24 08:44 Dose: 10 mg Dextrose (Dextrose 50% In Water 25 Gm/50 Ml Syringe) 0 gm IV-PUSH PRN PRN PRN Reason: Hypoglycemia Stop: 09/05/25 22:01 Enoxaparin Sodium (Enoxaparin 30 Mg/0.3 Ml Syringe) 30 mg SUBCUT DAILY@1000 [facility] Stop: 09/06/25 09:59 Last Admin: 09/07/24 09:07 Dose: 30 mg Furosemide (Furosemide 40 Mg Tablet) 40 mg PO BID@0800,1600 [facility] Stop: 09/06/25 15:59 Last Admin: 09/08/24 08:44 Dose: 40 mg Glucose (Dextrose 40% Gel 15 Gm Tube) 0 gm PO PRN PRN PRN Reason: Hypoglycemia Stop: 09/05/25 22:01 Hyoscyamine (Hyoscyamine Sulfate 0.125 Mg Tab.Rapdis) 0.125 mg SUBLINGUAL Q4H PRN PRN Reason: Bladder Spasms Stop: 09/06/25 02:45 Last Admin: 09/06/24 20:42 Dose: 0.125 mg Insulin Aspart (Insulin Aspart 300 Units/3 Ml) 0 units SUBCUT TID.WM.HS [facility]; Protocol Stop: 09/06/25 07:59 Last Admin: 09/08/24 08:45 Dose: Not Given Insulin Glargine (Insulin Glargine 300 Units/3 Ml Insuln.Pen) 28 units SUBCUT QHS [facility] Stop: 09/06/25 21:59 Last Admin: 09/07/24 21:16 Dose: 28 units Metoprolol Succinate (Metoprolol Succinate 50 Mg Tab.Er.24h) 50 mg PO DAILY [facility] Stop: 09/06/25 08:59 Last Admin: 09/08/24 08:45 Dose: 50 mg Oxycodone/Acetaminophen (Oxycodone/Acetaminophen 5-325 Mg Tablet) 1 tab PO Q4H PRN PRN Reason: Pain Scale 4 - 7 Last Admin: 09/06/24 10:18 Dose: 1 tab Pregabalin (Pregabalin 75 Mg Capsule) 75 mg PO BID [facility] Stop: 03/05/25 20:59 Last Admin: 09/08/24 08:52 Dose: 75 mg Sodium Bicarbonate (Sodium Bicarbonate 650 Mg Tablet) 650 mg PO TID [facility] Stop: 09/06/25 19:59 Last Admin: 09/08/24 08:45 Dose: 650 mg Sodium Chloride (Sodium Chloride 0.9 % 10 Ml Syringe) 0 ml IV-PUSH PRN PRN PRN Reason: Flush Stop: 09/05/25 17:16 Last Admin: 09/06/24 01:26 Dose: 10 ml Allergies latex Allergy (Unknown, Verified 09/05/24 17:17) Unresponsive Results - Nephrology Labs 09/07/24 06:00 09/08/24 06:08 Labs: 09/08/24 06:08 BUN 53 H Creatinine 3.08 H Radiology Impressions Impressions - last 24 hours: Any impression(s) listed above is documentation that was entered by the reading physician into a diagnostic report(s) for Aislinn Wheeler. I have reviewed the report(s) and am incorporating any findings in the treatment plan of this patient where applicable. A&P - Nephrology Assessment/Plan (1) ANATOLIY (acute kidney injury): Assessment/Problem Details: She had elevated creatinine higher than the baseline with evidence of bilateral hydronephrosis and hydroureter on the CT scan of the abdomen that was done at [facility] on 05[facility]. Renal ultrasound on 09/06/2024 showed moderate to severe bilateral hydronephrosis (2) Uropathy, obstructive: Assessment/Problem Details: Patient has evidence of obstructive uropathy on the CT scan of the abdomen as stated above resultedin ANATOLIY, hyperkalemia and metabolic acidosis (3) Hyperkalemia: Assessment/Problem Details: She has progressive hyperkalemia related to ANATOLIY and urine obstruction (4) History of neurogenic bladder: Assessment/Problem Details: Patient with history of neurogenic bladder, she used to self cath herself before. 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 (6) Diabetic nephropathy associated with type 2 diabetes mellitus: Assessment/Problem Details: Patient has longstanding history of diabetes that has been out of control with hemoglobin A1c between 11 and 12% on insulin. (7) Hypertensive nephropathy: Assessment/Problem Details: Blood pressure was elevated on admission more than 200. Plan * Renal function stabilized with a straight cath and potassium is normal. * Continue straight cath 4 times daily per Urology recommendation. Patient needs supplies secured at home. She used to do straight cath however she ran out of supplies. * Continue bethanechol 10 mg 3 times daily for neurogenic bladder. * Urology consult to address hydronephrosis and a serum creatinine still rising. Patient stated that she follow-up with urology at [facility] as well. * Continue sodium bicarb 650 mg 3 times daily. * Continue furosemide 40 mg p.o. twice a day as it will improve acidosis and hyperkalemia. Blood pressure is trending down. Amlodipine can be restarted later on if blood pressure continues to be elevated on furosemide. Patient stable from renal point to be discharged anytime. She need follow-up BMP and CBC in 5 to 7 days and follow-up with nephrology clinic. She was also advised to follow-up with urology in [place] forlong-term plan of neurogenic bladder. Patient was informed that she may need urostomy. Documented By: Akin Dougherty MD 09/08/24 1138 Signed By: 09/08/24 1142 [facility]01-18-2025 Progress note Author Abhishek Castañeda [facility] Note Date/Time September 07, 2024 3 :39pm [facility] [address] [place] [address] Urology Progress Note Signed Patient: Aislinn Wheeler MR#: [id number] : 1960 Acct:[id number] Age/Sex: 64 / F Adm Date: 5 Loc: Room: [address] [place] [address] Type: ADM IN Attending Dr: Gilmer Tai MD Copies to: ~ Date of Service: 09/07/2024 Subjective Subjective HPI: consult received for b/l hydro. Record reviewed I reviewed [facility] records and pt follow w a Dr Malone [facility] for long hx small capacity OAB----last visit w/ them 04/2024 rec was ISC q3-4hrs and rec for augmention cystoplasty. Failed botox per records 2020? and had b/l hydro then. CT urogram [facility] summer 2023 mild hydro and creat mid 1's. Now w/ creatbumped and pt refused valerio but will do ISC per nurse d/w me earlier today. Exam Physical Exam Vital Signs: Temp Pulse Resp BP Pulse Ox O2 Del Method 98.2 F 64 16 165/73 H 96 Room Air 09/07/24 14:54 09/07/24 14:54 09/07/24 14:54 09/07/24 14:54 09/07/24 14:54 09/07/24 14:54 Objective Pain Assessment Vagina: Pain Description: Burning Pain Intensity: 5 Intake & Output 24 hour I&O: Intake & Output 09/06/24 09/07/24 09/07/24 23:59 07:59 15:59 Intake Total 300 / 660 360 / 660 Output Total 50 / 350 300 / 350 Balance 250 / 310 60 / 310 Weight 59.5 kg Labs 09/07/24 06:00 09/07/24 06:00 Laboratory Results - Last 48 hrs. 09/07/24 11:23: POC Glucose 203 09/07/24 06:45: POC Glucose 153 09/07/24 06:00: Corrected WBC 8.2, Uncorrected WBC Count 8.2, RBC 3.44 L, Hgb 9.2 L, Hct 27.2 L, MCV 79.2 L, MCH 26.6, MCHC 33.7, RDW 14.0, Plt Count 221, MPV9.4, Neut % (Auto) 65.6, Lymph % (Auto) 24.8, Dewey % (Auto) 6.2, Eos % (Auto) 2.9, Baso % (Auto) 0.5, Nucleat RBC Rel Count 0.1, Neut # (Auto) 5.4, Lymph # (Auto) 2.0, Dewey # (Auto) 0.5, Eos # (Auto) 0.2, Baso # (Auto) 0.0, PHA Creatinine Clear 14.45, Sodium 132 L, Potassium 5.1, Chloride 100, Carbon Dioxide 25.8, Anion Gap 11.3, BUN 51 H, Creatinine 3.09 H, Est GFR (CKD-EPI) 16.046, Glucose 155 H, Calcium 8.3 L, Total Bilirubin 0.2 L, AST 14, ALT 9, Alkaline Phosphatase 77, Total Protein 6.8, Albumin 3.0 L, Globulin 3.8, Albumin/Globulin Ratio 0.8 09/06/24 16:28: POC Glucose 264 09/06/24 06:50: POC Glucose 166, POC Glucose Comment Glu2: cleaned meter 09/06/24 06:14: Corrected WBC 13.4 H, Uncorrected WBC Count 13.4 H, RBC 3.91, Hgb 10.1 L, Hct 31.3 L, MCV 80.1, MCH 25.9, MCHC 32.4, RDW 14.1, Plt Count 299, MPV 9.9, Neut % (Auto) 74.5, Lymph % (Auto) 19.0, Dewey % (Auto) 4.4, Eos % (Auto) 1.3, Baso % (Auto) 0.8, Nucleat RBC Rel Count 0.0, Neut # (Auto) 10.0 H, Lymph # (Auto) 2.5, Dewey # (Auto) 0.6, Eos # (Auto) 0.2, Baso # (Auto) 0.1, PHA Creatinine Clear 14.56, Sodium 132 L, Potassium 5.7 H, Chloride 110 H, Carbon Dioxide 16.2 L, Anion Gap 11.5, BUN 45 H, Creatinine 2.73 H, Est GFR (CKD-EPI) 18.618, Glucose 168 H D, Calcium 9.7, Phosphorus 5.4 H, Magnesium 1.5 L, Total Bilirubin 0.2 L, AST 15, ALT 9, Alkaline Phosphatase 91, Total Protein 8.2, Albumin 3.7, Globulin 4.5, Albumin/Globulin Ratio 0.8 09/05/24 22:51: POC Glucose 124 09/05/24 18:19: Urine Color Dark-yellow A, Urine Appearance Cloudy A, Urine pH 6.0, Ur Specific [place] 1.007, Urine Protein 70 H, Urine Glucose (UA) 300 H, Urine Ketones Negative, Urine Occult Blood 1+ H, Urine Nitrite Positive H, UrineBilirubin Negative, Urine Urobilinogen Normal, Ur Leukocyte Esterase 4+ H, UrineRBC 3-4, Urine WBC Innumerable H, Urine WBC Clumps Many H, Ur Squamous Epith Cells 1-2, Urine Bacteria 4+ H, Hyaline Casts 0-8, Urine Mucus Rare, Urine Osmolality 245 L, Ur Random Creatinine 32.00, Ur Random Sodium 53, Ur Random Potassium 19.8, Ur Random Chloride 54 09/05/24 17:56: Corrected WBC 8.4, Uncorrected WBC Count 8.4, RBC 3.81, Hgb 10.0L, Hct 30.3 L, MCV 79.6 L, MCH 26.2, MCHC 32.9, RDW 14.4, Plt Count 254, MPV 9.1, Neut % (Auto) 65.6, Lymph % (Auto) 25.0, Dewey % (Auto) 5.8, Eos % (Auto) 2.2, Baso % (Auto) 1.4, Nucleat RBC Rel Count 0.1, Neut # (Auto) 5.5, Lymph # (Auto) 2.1, Dewey # (Auto) 0.5, Eos # (Auto) 0.2, Baso # (Auto) 0.1, Monocyte Dist Width 17.62, PHA Creatinine Clear 18.03, Sodium 134 L, Potassium 5.7 H, Chloride 109 H, Carbon Dioxide 18.7 L, Anion Gap 12.0, BUN 40 H, Creatinine 2.48H, Est GFR (CKD-EPI) 20.892, Glucose 296 H, Calcium 8.4 L, Total Bilirubin 0.2 L, AST 14, ALT 10, Alkaline Phosphatase 84, Total Protein 7.6, Albumin 3.3 L, Globulin 4.3, Albumin/Globulin Ratio 0.8 Microbiology Microbiology 09/05/24 18:19 Urine - Clean-Voided Midstream Urine Culture - Final Escherichia coli Assessment/Plan Assessment/Plan (1) Urinary retention: Plan: Rec int st cath q4-6hrs (ISC) and b/l hydro d/t high pressure/low capacity bladder most likely. No other intervetnion needed now and can f[facility] with [facility] I reviewed [facility] records and pt follow w a Dr Malone [facility] for long hx small capacity OAB----last visit w/ them 04/2024 rec was ISC q3-4hrs and rec for augmention cystoplasty. Failed botox per records 2020? and had b/l hydro then. CT urogram [facility] summer 2023 mild hydro and creat mid 1's. Now w/ creatbumped and pt refused valerio but will do ISC per nurse d/w me earlier today. Code(s): R33.9 - Retention of urine, unspecified (2) ANATOLIY (acute kidney injury): Code(s): N17.9 - Acute kidney failure, unspecified (3) Hyperkalemia: Code(s): E87.5 - Hyperkalemia (4) History of neurogenic bladder: Code(s): Z87.448 - Personal history of other diseases of urinary system (5) Vitamin D deficiency: Code(s): E55.9 - Vitamin D deficiency, unspecified (6) Iron deficiency anemia: Plan: f Qualifiers: Iron deficiency anemia type: other iron deficiency Qualified Code(s): D50.8 - Other iron deficiency anemias Code(s): D50.9 - Iron deficiency anemia, unspecified Plan pcp Documented By: Abhishek Castañeda MD 09/07/24 5712 Signed By: <Electronically signed by Abhishek Castañeda MD> 09/07/24 3543 [facility] Work Phone: [phone] 203-392101-18-2025 Progress note Author Gilmer Tai [facility] Note Date/Time September 07, 2024 1 :45pm [facility] [address] [place] [address] Hospitalist Progress Note Signed Patient: Aislinn Wheeler MR#: [id number] : 1960 Acct:[id number] Age/Sex: 64 / F Adm Date: 5 Loc: Room: [address] [place] [address] Type: ADM IN Attending Dr: Gilmer Tai MD Copies to: ~ Date of Service: 09/07/2024 Subjective Subjective Narrative: Attending note: I saw the patient personally on the day of encounter. I reviewed the relevant history, and performed the miller elements of the physical examination. I reviewedthe relevant laboratory workup, radiological studies and the current treatment plan. I formulated the plan of care and confirmed it with the resident/student/CORN CUTTER OPERATOR. Ms. Aislinn Wheeler is a 64 year old female with a PMHx of hypertension, chronic kidney disease, diabetes, restless leg syndrome, rheumatoid arthritis, lupus andfibromyalgia admitted for abnormal lab values after a routine lab check. [facility] where she was treated for a urinary tract infection and hypokalemia. She had a valerio catheter placed at [place] that was subsequently removed. After discharge from [place] on 09/05/24, her rail car repairman recommended she come to this hospital. Today Ms. Wheeler is on hospital day 2. She reports that she is feeling about the same as the day before. She denies fever, chills, chest pain, palpitations,SOB, and abdominal pain. Upon further discussion with the patient regarding catheterization, she described that she previously self catheterized daily but has not done so in several months. She states that she was self catheterizing because she has no sensation in her bladder. When she would not self catheterizeshe would have overflow incontinence. She states that someone on her healthcare team (she cannot recall which provider) told her that because she completely empties when she has overflow incontinence she did not need to self-catheterize and has since just been wearing briefs. An explanation of the importance of the self-catheterization to protect the kidneys from hydronephrosis and further renal damage was provided. Electrolyte abnormalities have undergone correction but kidney function has worsened presumably from the patient's urinary retention due to neurogenic bladder. Pertinent lab values from labs collected on 09/07/24 at the time of this documentation include: WBC 8.2 (13.4 on 09/06/24), Hgb 9.2 (10.1 on 09/06/24), Hct27.2 (31.3 on 09/06/24), Na 132 (132 on 09/06/24), K 5.1 (5.7 on 09/06/24), Chloride 100 (110 on 09/06/24), Bicarbonate 25.8 (16.2 on 09/06/24), BUN 51 (45 on09/06/24), Cr 3.09 (2.73 on 09/06/24). Urine Culture collected on 09/05/24 resulted: E. Coli >100,000 CFU/ml Exam Physical Exam Vital Signs: Temp Pulse Resp BP Pulse Ox O2 Del Method 98.0 F 69 14 170/75 H 96 Room Air 09/07/24 11:23 09/07/24 11:23 09/07/24 11:23 09/07/24 11:23 09/07/24 11:23 09/07/24 11:23 Const General: cooperative and no acute distress Orientation: alert, awake and oriented x3 Resp Effort & Inspection: normal respiratory effort Auscultation: clear to auscultation bilaterally Cardio Rate: regular rate Rhythm: regular rhythm GI Palpation: soft and nontender Neuro General: patient alert, patient awake and patient oriented x3 Extrem General: no clubbing, cyanosis or edema Objective Lab Results 09/07/24 06:00 09/07/24 06:00 Microbiology Results Microbiology 09/05/24 18:19 Urine - Clean-Voided Midstream Urine Culture - Final Escherichia coli Meds Allergies and Active Meds Allergies latex Allergy (Unknown, Verified 09/05/24 17:17) Unresponsive Active Meds: Active Medications Generic Name Dose Route Start Last Admin Trade Name Freq PRN Reason Stop Dose Admin Acetaminophen 1,000 mg 09/06/24 02:46 09/06/24 08:56 Acetaminophen 500 Mg Tablet PO 09/06/25 02:45 1,000 mg Q6H PRN Administration Fever or Pain Hydrocodone Bitart/Acetaminophen 1 tab 09/06/24 14:00 09/07/24 05:03 Hydrocodone/Acetaminophen 7.5-325mg Tablet PO 1 tab Q8HR UZIEL Administration Atorvastatin Calcium 20 mg 09/07/24 09:00 09/07/24 08:11 Atorvastatin 20 Mg Tablet PO 09/07/25 08:59 20 mg DAILY UZIEL Administration Bethanechol Chloride 10 mg 09/07/24 14:00 Bethanechol 10 Mg Tablet PO 09/07/25 13:59 TID UZIEL Ceftriaxone Sodium 1 gm 09/06/24 00:30 09/06/24 23:46 Ceftriaxone 1 Gm/10 Ml Syringe IV-PUSH 1 gm Q24H UZIEL Administration Dextrose 0 gm 09/05/24 22:02 Dextrose 50% In Water 25 Gm/50 Ml Syringe IV-PUSH 09/05/25 22:01 PRN PRN Hypoglycemia Enoxaparin Sodium 30 mg 09/06/24 10:00 09/07/24 09:07 Enoxaparin 30 Mg/0.3 Ml Syringe SUBCUT 09/06/25 09:59 30 mg DAILY@1000 UZIEL Administration Furosemide 40 mg 09/06/24 16:00 09/07/24 08:11 Furosemide 40 Mg Tablet PO 09/06/25 15:59 40 mg BID@0800,1600 UZIEL Administration Glucose 0 gm 09/05/24 22:02 Dextrose 40% Gel 15 Gm Tube PO 09/05/25 22:01 PRN PRN Hypoglycemia Hyoscyamine 0.125 mg 09/06/24 02:46 09/06/24 20:42 Hyoscyamine Sulfate 0.125 Mg Tab.Rapdis SUBLINGUAL 09/06/25 02:45 0.125 mg Q4H PRN Administration Bladder Spasms Insulin Aspart 0 units 09/06/24 08:00 01/18/25 11:27 Insulin Aspart 300 Units/3 Ml SUBCUT 09/06/25 07:59 3 units TID.WM.HS UZIEL Administration Protocol Insulin Glargine 28 units 09/06/24 22:00 09/06/24 21:52 Insulin Glargine 300 Units/3 Ml Insuln.Pen SUBCUT 09/06/25 21:59 28 units QHS UZIEL Administration Metoprolol Succinate 50 mg 09/06/24 09:00 09/07/24 08:11 Metoprolol Succinate 50 Mg Tab.Er.24h PO 09/06/25 08:59 50 mg DAILY UZIEL Administration Oxycodone/Acetaminophen 1 tab 09/05/24 21:58 09/06/24 10:18 Oxycodone/Acetaminophen 5-325 Mg Tablet PO 1 tab Q4H PRN Administration Pain Scale 4 - 7 Pregabalin 75 mg 09/06/24 21:00 09/07/24 08:11 Pregabalin 75 Mg Capsule PO 03/05/25 20:59 75 mg BID UZIEL Administration Sodium Bicarbonate 650 mg 09/06/24 20:00 09/07/24 08:11 Sodium Bicarbonate 650 Mg Tablet PO 09/06/25 19:59 650 mg TID UZIEL Administration Sodium Chloride 0 ml 09/05/24 17:17 09/06/24 01:26 Sodium Chloride 0.9 % 10 Ml Syringe IV-PUSH 09/05/25 17:16 10 ml PRN PRN Administration Flush A&P - Hospitalist Assessment/Plan (1) Urinary retention: (2) ANATOLIY (acute kidney injury): (3) Hyperkalemia: (4) History of neurogenic bladder: (5) Vitamin D deficiency: (6) Iron deficiency anemia: Plan Acute problems: ANATOLIY, hyperkalemia and metabolic acidosis -Continue Sodium Bicarbonate 650 mg PO TID -Continue Furosemide 40 mg PO BID -Initiate Bethanechol 10 mg PO TID -nephrology consulted, recommendations included above Hyperkalemia in setting of ANATOLIY -resolved -nephrology consulted as above Urinary Retention in setting of history of neurogenic bladder -Patient to self-catheterize at least BID -Bladder Scans Q8H UTI -Deescalate antibiotic therapy given available sensitivities for E Coli -Hyoscyamine 0.125 SL Q4H PRN for bladder spasms Chronic conditions requiring attention while inpatient: continue home meds unless otherwise listed below. Additional plans below. Hypertension CKD Diabetes Restless leg syndrome Rheumatoid arthritis Fibromyalgia DVT PPx: Enoxaparin 30 mg QD Diet: renal diet CODE STATUS: full code Dispo: inpatient, stable Plan of care Discussed with:?the medical team, the patient Documented By: Gilmer Tai MD 09/07/24 1142 Signed By: <Electronically signed by Gilmer Tai MD> 09/07/24 8672 [facility] Work Phone: [phone] 783-698101-18-2025 Progress note Author Gilmer Tai [facility] Note Date/Time September 07, 2024 1 :44pm [facility] [address] [place] [address] Hospitalist Progress Note Signed Patient: Aislinn Wheeler MR#: [id number] : 1960 Acct:[id number] Age/Sex: 64 / F Adm Date: 5 Loc: Room: [address] [place] [address] Type: ADM IN Attending Dr: Gilmer Tai MD Copies to: ~ Date of Service: 09/06/2024 Subjective Subjective Narrative: Attending note: I saw the patient personally on the day of encounter. I reviewed the relevant history, and performed the miller elements of the physical examination. I reviewedthe relevant laboratory workup, radiological studies and the current treatment plan. I formulated the plan of care and confirmed it with the resident/student/CORN CUTTER OPERATOR. Ms. Aislinn Wheeler is a 64 year old female with a PMHx of hypertension, Chronic kidney disease, diabetes, restless leg syndrome, rheumatoid arthritis, lupus andfibromyalgia admitted for abnormal lab values after a routine lab check. She wasrecently admitted to the [facility] where she was treated for a urinary tract infection and hypokalemia. She had a valerio catheter placed at [place] that was subsequently removed. After discharge from [place] on 09/05/24, her rail car repairman recommended she come to this hospital. Today Ms. Wheeler is on hospital day 1. She reports that she is having bladder irritation and dysuria. She denies fever, chills, chest pain, palpitations, SOB,and abdominal pain. Pertinent lab values from labs collected on 09/06/24 at the time of this documentation include: WBC 13.4 (8.4 on admission), Hgb 10.1 (10.0 on admission), Hct 31.3 (30.3 on admission), Na 132 (134 on admission), K 5.7 (5.7 on admission), Chloride 110 (109 on admission), Bicarbonate 16.2 (18.7 on admission), BUN 45 (40 on admission), Cr 2.73 (2.48 on admission). Urine Culture collected on 09/05/24 pending as of this documentation Exam Physical Exam Vital Signs: Temp Pulse Resp BP Pulse Ox O2 Del Method 97.5 F L 67 18 150/74 H 98 Room Air 09/06/24 07:51 09/06/24 07:51 09/06/24 07:51 09/06/24 07:51 09/06/24 07:51 09/06/24 08:00 Const General: cooperative and no acute distress Orientation: alert, awake and oriented x3 Resp Effort & Inspection: normal respiratory effort Auscultation: clear to auscultation bilaterally Cardio Rate: regular rate Rhythm: regular rhythm GI Palpation: soft and nontender Neuro General: patient alert, patient awake and patient oriented x3 Extrem General: no clubbing, cyanosis or edema Objective Lab Results 09/07/24 06:00 09/07/24 06:00 Meds Allergies and Active Meds Allergies latex Allergy (Unknown, Verified 09/05/24 17:17) Unresponsive Active Meds: Active Medications Generic Name Dose Route Start Last Admin Trade Name Freq PRN Reason Stop Dose Admin Acetaminophen 1,000 mg 09/06/24 02:46 09/06/24 08:56 Acetaminophen 500 Mg Tablet PO 09/06/25 02:45 1,000 mg Q6H PRN Administration Fever or Pain Hydrocodone Bitart/Acetaminophen 1 tab 09/06/24 14:00 Hydrocodone/Acetaminophen 7.5-325mg Tablet PO Q8HR [facility] Atorvastatin Calcium 20 mg 09/07/24 09:00 Atorvastatin 20 Mg Tablet PO 09/07/25 08:59 DAILY [facility] Ceftriaxone Sodium 1 gm 09/06/24 00:30 09/06/24 01:26 Ceftriaxone 1 Gm/10 Ml Syringe IV-PUSH 1 gm Q24H UZIEL Administration Dextrose 0 gm 09/05/24 22:02 Dextrose 50% In Water 25 Gm/50 Ml Syringe IV-PUSH 09/05/25 22:01 PRN PRN Hypoglycemia Enoxaparin Sodium 30 mg 09/06/24 10:00 09/06/24 10:18 Enoxaparin 30 Mg/0.3 Ml Syringe SUBCUT 09/06/25 09:59 30 mg DAILY@1000 UZIEL Administration Furosemide 40 mg 09/06/24 16:00 Furosemide 40 Mg Tablet PO 09/06/25 15:59 BID@0800,1600 [facility] Glucose 0 gm 09/05/24 22:02 Dextrose 40% Gel 15 Gm Tube PO 09/05/25 22:01 PRN PRN Hypoglycemia Hyoscyamine 0.125 mg 09/06/24 02:46 09/06/24 08:56 Hyoscyamine Sulfate 0.125 Mg Tab.Rapdis SUBLINGUAL 09/06/25 02:45 0.125 mg Q4H PRN Administration Bladder Spasms Sodium Bicarbonate 150 meq/ 1,150 mls @ 100 mls/hr 09/06/24 10:30 Dextrose IV 09/06/24 21:59 .[id number] [facility] Magnesium Sulfate 4 gm in 100 mls @ 25 mls/hr 09/06/24 09:52 09/06/24 10:18 Magnesium Sulf 4 Gm-*Swfi* IV 09/06/24 13:51 25 mls/hr ONCE ONE Administration Insulin Aspart 0 units 09/06/24 08:00 09/06/24 07:53 Insulin Aspart 300 Units/3 Ml SUBCUT 09/06/25 07:59 1 units TID.WM.HS UZIEL Administration Protocol Insulin Glargine 28 units 09/06/24 22:00 Insulin Glargine 300 Units/3 Ml Insuln.Pen SUBCUT 09/06/25 21:59 QHS UZIEL Metoprolol Succinate 50 mg 09/06/24 09:00 09/06/24 08:56 Metoprolol Succinate 50 Mg Tab.Er.24h PO 09/06/25 08:59 50 mg DAILY UZIEL Administration Non-Formulary Medication 1 sliding scale dose 09/06/24 11:30 Insulin Lispro SUBCUT 09/06/25 11:29 AC UZIEL Oxycodone/Acetaminophen 1 tab 09/05/24 21:58 09/06/24 10:18 Oxycodone/Acetaminophen 5-325 Mg Tablet PO 1 tab Q4H PRN Administration Pain Scale 4 - 7 Pregabalin 75 mg 09/06/24 21:00 Pregabalin 75 Mg Capsule PO 03/05/25 20:59 BID UZIEL Sodium Bicarbonate 650 mg 09/06/24 20:00 Sodium Bicarbonate 650 Mg Tablet PO 09/06/25 19:59 TID UZIEL Sodium Chloride 0 ml 09/05/24 17:17 09/06/24 01:26 Sodium Chloride 0.9 % 10 Ml Syringe IV-PUSH 09/05/25 17:16 10 ml PRN PRN Administration Flush A&P - Hospitalist Assessment/Plan (1) Urinary retention: (2) ANATOLIY (acute kidney injury): (3) Hyperkalemia: (4) History of neurogenic bladder: (5) Vitamin D deficiency: (6) Iron deficiency anemia: Plan Acute problems: ANATOLIY, metabolic acidosis and hyperkalemia -Initiate Sodium Bicarbonate 8.4% in D5 in Water IV (one bag) -Initiate Sodium Bicarbonate 650 mg PO TID after IV completion -Initiate Furosemide 40 mg BID -nephrology consulted, recommendations included above Hyperkalemia in setting of ANATOLIY -nephrology consulted as above Urinary Retention in setting of history of neurogenic bladder -Valerio Catheter in place -Bladder Scans Q8H UTI -Continue ceftriaxone 1 gm IV Q24H -Hyoscyamine 0.125 SL Q4H PRN for bladder spasms -Urine culture pending Chronic conditions requiring attention while inpatient: continue home meds unless otherwise listed below. Additional plans below. Hypertension CKD Diabetes Restless leg syndrome Rheumatoid arthritis Fibromyalgia DVT PPx: Enoxaparin 30 mg QD Diet: renal diet CODE STATUS: full code Dispo: inpatient, stable Plan of care Discussed with:?the medical team, the patient Documented By: Gilmer Tai MD 09/06/24 1053 Signed By: <Electronically signed by Gilmer Tai MD> 09/07/24 1344 [facility] Work Phone: [phone] [address] Urology Progress Note Signed Patient: Aislinn Wheeler MR#: [id number] : 1960 Acct:[id number] Age/Sex: 64 / F Adm Date: 5 Loc: 3T Room: [address] [place] [address] Type: ADM IN Attending Dr: Gilmer Tai MD Copies to: ~ Date of Service: 09/07/2024 Subjective Subjective HPI: consult received for b/l hydro. Record reviewed I reviewed [facility] records and pt follow w a Dr [facility] for long hx small capacity OAB----last visitw/ them 04/2024 rec was ISC q3-4hrs and rec for augmention cystoplasty. Failed botox per records 2020? and had b/l hydro then. CT urogram [facility] summer 2023 mild hydro and creat mid 1's. Now w/ creatbumped and pt refused valerio but will do ISC per nurse d/w me earlier today. Exam Physical Exam Vital Signs: Temp Pulse Resp BP Pulse Ox O2 Del Method 98.2 F 64 16 165/73 H 96 Room Air 09/07/24 14:54 09/07/24 14:54 09/07/24 14:54 09/07/24 14:54 09/07/24 14:54 09/07/24 14:54 Objective Pain Assessment Vagina: Pain Description: Burning Pain Intensity: 5 Intake & Output 24 hour I&O: Intake & Output 09/06/24 09/07/24 09/07/24 23:59 07:59 15:59 Intake Total 300 / 660 360 / 660 Output Total 50 / 350 300 / 350 Balance 250 / 310 60 / 310 Weight 59.5 kg Labs 09/07/24 06:00 09/07/24 06:00 Laboratory Results - Last 48 hrs. 09/07/24 11:23: POC Glucose 203 09/07/24 06:45: POC Glucose 153 09/07/24 06:00: Corrected WBC 8.2, Uncorrected WBC Count 8.2, RBC 3.44 L, Hgb 9.2 L, Hct 27.2 L, MCV 79.2 L, MCH 26.6, MCHC 33.7, RDW 14.0, Plt Count 221, MPV9.4, Neut % (Auto) 65.6, Lymph % (Auto) 24.8, Dewey % (Auto) 6.2, Eos % (Auto) 2.9, Baso % (Auto) 0.5, Nucleat RBC Rel Count 0.1, Neut # (Auto) 5.4, Lymph # (Auto) 2.0, Dewey # (Auto) 0.5, Eos # (Auto) 0.2, Baso # (Auto) 0.0, PHA Creatinine Clear 14.45, Sodium 132 L, Potassium 5.1, Chloride 100, Carbon Dioxide 25.8, Anion Gap 11.3, BUN 51 H,Creatinine 3.09 H, Est GFR (CKD-EPI) 16.046, Glucose 155 H, Calcium 8.3 L, Total Bilirubin 0.2 L, AST 14, ALT 9, Alkaline Phosphatase 77, Total Protein 6.8, Albumin 3.0 L, Globulin 3.8, Albumin/Globulin Ratio 0.8 09/06/24 16:28: POC Glucose 264 09/06/24 06:50: POC Glucose 166, POC Glucose Comment Glu2: cleaned meter 09/06/24 06:14: Corrected WBC 13.4 H, Uncorrected WBC Count 13.4 H, RBC 3.91, Hgb 10.1 L, Hct 31.3 L, MCV 80.1, MCH 25.9, MCHC 32.4, RDW 14.1, Plt Count 299, MPV 9.9, Neut % (Auto) 74.5, Lymph % (Auto) 19.0, Dewey % (Auto) 4.4, Eos % (Auto) 1.3, Baso % (Auto) 0.8, Nucleat RBC Rel Count 0.0, Neut # (Auto) 10.0 H, Lymph # (Auto) 2.5, Dewey # (Auto) 0.6, Eos # (Auto) 0.2, Baso # (Auto) 0.1, PHA Creatinine Clear 14.56, Sodium 132 L, Potassium 5.7 H, Chloride 110 H, Carbon Dioxide 16.2 L, Anion Gap 11.5, BUN 45 H, Creatinine 2.73 H, Est GFR (CKD-EPI) 18.618, Glucose 168 H D, Calcium 9.7, Phosphorus 5.4 H, Magnesium 1.5 L, Total Bilirubin 0.2 L, AST 15, ALT 9, Alkaline Phosphatase 91, Total Protein8.2, Albumin 3.7, Globulin 4.5, Albumin/Globulin Ratio 0.8 09/05/24 22:51: POC Glucose 124 09/05/24 18:19: Urine Color Dark-yellow A, Urine Appearance Cloudy A, Urine pH 6.0, Ur Specific [place] 1.007, Urine Protein 70 H, Urine Glucose (UA) 300 H, Urine Ketones Negative, Urine Occult Blood1+ H, Urine Nitrite Positive H, UrineBilirubin Negative, Urine Urobilinogen Normal, Ur Leukocyte Esterase 4+ H, UrineRBC 3-4, Urine WBC Innumerable H, Urine WBC Clumps Many H, Ur Squamous Epith Cells1-2, Urine Bacteria 4+ H, Hyaline Casts 0-8, Urine Mucus Rare, Urine Osmolality 245 L, Ur Random Creatinine 32.00, Ur Random Sodium 53, Ur Random Potassium 19.8, Ur Random Chloride 54 09/05/24 17:56: Corrected WBC 8.4, Uncorrected WBC Count 8.4, RBC 3.81, Hgb 10.0L, Hct 30.3 L, MCV 79.6 L, MCH 26.2, MCHC 32.9, RDW 14.4, Plt Count 254, MPV 9.1, Neut % (Auto) 65.6, Lymph % (Auto) 25.0, Dewey % (Auto) 5.8, Eos % (Auto) 2.2, Baso % (Auto) 1.4, Nucleat RBC Rel Count 0.1, Neut # (Auto)5.5, Lymph # (Auto) 2.1, Dewey # (Auto) 0.5, Eos # (Auto) 0.2, Baso # (Auto) 0.1, Monocyte Dist Width 17.62, PHA Creatinine Clear 18.03, Sodium 134 L, Potassium 5.7 H, Chloride 109 H, Carbon Dioxide 18.7 L, Anion Gap 12.0, BUN 40 H, Creatinine 2.48H, Est GFR (CKD-EPI) 20.892, Glucose 296 H, Calcium 8.4 L, Total Bilirubin 0.2 L, AST 14, ALT 10, Alkaline Phosphatase 84, Total Protein 7.6, Albumin 3.3 L, Globulin 4.3, Albumin/Globulin Ratio 0.8 Microbiology Microbiology 09/05/24 18:19 Urine - Clean-Voided Midstream Urine Culture - Final Escherichia coli Assessment/Plan Assessment/Plan (1) Urinary retention: Plan: Rec int st cath q4-6hrs (ISC) and b/l hydro d/t high pressure/low capacity bladder most likely. No other intervetnion needed now and can f[facility] with [facility] outpatient I reviewed [facility] records and pt follow w a Dr [facility] for long hx small capacity OAB----last visitw/ them 04/2024 rec was ISC q3-4hrs and rec for augmention cystoplasty. Failed botox per records 2020? and had b/l hydro then. CT urogram [facility] summer 2023 mild hydro and creat mid 1's. Now w/ creatbumped and pt refused valerio but will do ISC per nurse d/w me earlier today. Code(s): R33.9 - Retention of urine, unspecified (2) ANATOLIY (acute kidney injury): Code(s): N17.9 - Acute kidney failure, unspecified (3) Hyperkalemia: Code(s): E87.5 - Hyperkalemia (4) History of neurogenic bladder: Code(s): Z87.448 - Personal history of other diseases of urinary system (5) Vitamin D deficiency: Code(s): E55.9 - Vitamin D deficiency, unspecified (6) Iron deficiency anemia: Plan: f Qualifiers: Iron deficiency anemia type: other iron deficiency Qualified Code(s): D50.8 - Other iron deficiencyanemias Code(s): D50.9 - Iron deficiency anemia, unspecified Plan pcp Documented By: Abhishek Castañeda MD 09/07/241534 Signed By: 09/07/24 1539 [facility]01-18-2025 [place] [address] Hospitalist Progress Note Signed Patient: Aislinn Wheeler MR#: [id number] : 1960 Acct:[id number] Age/Sex: 64 / F Adm Date: 5 Loc: Room: [address] [place] [address] Type: ADM IN Attending Dr: Gilmer Tai MD Copies to: ~ Date of Service: 09/07/2024 Subjective Subjective Narrative: Attending note: I saw the patient personally on the day of encounter. I reviewed the relevant history, and performed the miller elements of the physical examination. I reviewedthe relevant laboratory workup, radiological studies and the current treatment plan. 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 Ms. Aislinn Wheeler is a 64 year old female with a PMHx of hypertension, chronic kidney disease, diabetes, restless leg syndrome, rheumatoid arthritis, lupus andfibromyalgia admitted for abnormal lab values after a routine lab check. She wasrecently admitted to the [facility] where she was treated for a urinary tract infection and hypokalemia. She had a valerio catheter placed at [place] that was subsequently removed. 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 Today Ms. Wheeler is on hospital day 2. She reports that she is feeling about the same as the day before. She denies fever, chills, chest pain, palpitations,SOB, and abdominal pain. Upon further discussion with the patient regarding catheterization, she described that she previously self catheterized daily but has not done so in several months. She states that she was self catheterizing because she has no sensation in her bladder. When she would not self catheterizeshe would have overflow incontinence. She states that someone on her healthcare team (she cannot recall which provider) told herthat because she completely empties when she has overflow incontinence she did not need to self-catheterize and has since just been wearing briefs. An explanation of the importance of the self-catheterization to protect the kidneys from hydronephrosis and further renal damage was provided. Electrolyte abnormalities have undergone correction but kidney function has worsened presumably from the patient's urinary retention due to neurogenic bladder. Pertinent lab values from labs collected on 09/07/24 at the time of this documentation include: WBC 8.2 (13.4 on 09/06/24), Hgb 9.2 (10.1 on 09/06/24), Hct27.2 (31.3 on 09/06/24), Na 132 (132 on 09/06/24), K 5.1 (5.7 on 09/06/24), Chloride 100 (110 on 09/06/24), Bicarbonate 25.8 (16.2 on 09/06/24), BUN 51 (45 on09/06/24), Cr 3.09 (2.73 on 09/06/24). Urine Culture collected on 09/05/24 resulted: E. Coli >100,000 CFU/ml Exam Physical Exam Vital Signs: Temp Pulse Resp BP Pulse Ox O2 Del Method 98.0 F 69 14 170/75 H 96 Room Air 09/07/24 11:23 09/07/24 11:23 09/07/24 11:23 09/07/24 11:23 09/07/24 11:23 09/07/24 11:23 Const General: cooperative and no acute distress Orientation: alert, awake and oriented x3 Resp Effort & Inspection: normal respiratory effort Auscultation: clear to auscultation bilaterally Cardio Rate: regular rate Rhythm: regular rhythm GI Palpation: soft and nontender Neuro General: patient alert, patient awake and patient oriented x3 Extrem General: no clubbing, cyanosis or edema Objective Lab Results 09/07/24 06:00 09/07/24 06:00 Microbiology Results Microbiology 09/05/24 18:19 Urine - Clean-Voided Midstream Urine Culture - Final Escherichia coli Meds Allergies and Active Meds Allergies latex Allergy (Unknown, Verified 09/05/24 17:17) Unresponsive Active Meds: Active Medications Generic Name Dose Route Start Last Admin Trade Name Freq PRN Reason Stop Dose Admin Acetaminophen 1,000 mg 09/06/24 02:46 09/06/24 08:56 Acetaminophen 500 Mg Tablet PO 09/06/25 02:45 1,000 mg Q6H PRN Administration Fever or Pain Hydrocodone Bitart/Acetaminophen 1 tab 09/06/24 14:00 09/07/24 05:03 Hydrocodone/Acetaminophen 7.5-325mg Tablet PO 1 tab Q8HR UZIEL Administration Atorvastatin Calcium 20 mg 09/07/24 09:00 09/07/24 08:11 Atorvastatin 20 Mg Tablet PO 09/07/25 08:59 20 mg DAILY UZIEL Administration Bethanechol Chloride 10 mg 09/07/24 14:00 Bethanechol 10 Mg Tablet PO 09/07/25 13:59 TID UZIEL Ceftriaxone Sodium 1 gm 09/06/24 00:30 09/06/24 23:46 Ceftriaxone 1 Gm/10 Ml Syringe IV-PUSH 1 gm Q24H UZIEL Administration Dextrose 0 gm 09/05/24 22:02 Dextrose 50% In Water 25 Gm/50 Ml Syringe IV-PUSH 09/05/25 22:01 PRN PRN Hypoglycemia Enoxaparin Sodium 30 mg 09/06/24 10:00 09/07/24 09:07 Enoxaparin 30 Mg/0.3 Ml Syringe SUBCUT 09/06/25 09:59 30 mg DAILY@1000 UZIEL Administration Furosemide 40 mg 09/06/24 16:00 09/07/24 08:11 Furosemide 40 Mg Tablet PO 09/06/25 15:59 40 mg BID@0800,1600 UZIEL Administration Glucose 0 gm 09/05/24 22:02 Dextrose 40% Gel 15 Gm Tube PO 09/05/25 22:01 PRN PRN Hypoglycemia Hyoscyamine 0.125 mg 09/06/24 02:46 09/06/24 20:42 Hyoscyamine Sulfate 0.125 Mg Tab.Rapdis SUBLINGUAL 09/06/25 02:45 0.125 mg Q4H PRN Administration Bladder Spasms Insulin Aspart 0 units 09/06/24 08:00 09/07/24 11:27 Insulin Aspart 300 Units/3 Ml SUBCUT 09/06/25 07:59 3 units TID.WM.HS UZIEL Administration Protocol Insulin Glargine 28 units 09/06/24 22:00 09/06/24 21:52 Insulin Glargine 300 Units/3 Ml Insuln.Pen SUBCUT 09/06/25 21:59 28 units QHS UZIEL Administration Metoprolol Succinate 50 mg 09/06/24 09:00 09/07/24 08:11 Metoprolol Succinate 50 Mg Tab.Er.24h PO 09/06/25 08:59 50 mg DAILY UZIEL Administration Oxycodone/Acetaminophen 1 tab 09/05/24 21:58 09/06/24 10:18 Oxycodone/Acetaminophen 5-325 Mg Tablet PO 1 tab Q4H PRN Administration Pain Scale 4 - 7 Pregabalin 75 mg 09/06/24 21:00 09/07/24 08:11 Pregabalin 75 Mg Capsule PO 03/05/25 20:59 75 mg BID UZIEL Administration Sodium Bicarbonate 650 mg 09/06/24 20:00 09/07/24 08:11 Sodium Bicarbonate 650 Mg Tablet PO 09/06/25 19:59 650 mg TID UZIEL Administration Sodium Chloride 0 ml 09/05/24 17:17 09/06/24 01:26 Sodium Chloride 0.9 % 10 Ml Syringe IV-PUSH 09/05/25 17:16 10 ml PRN PRN Administration Flush A&P - Hospitalist Assessment/Plan (1) Urinary retention: (2) ANATOLIY (acute kidney injury): (3) Hyperkalemia: (4) History of neurogenic bladder: (5) Vitamin D deficiency: (6) Iron deficiency anemia: Plan Acute problems: ANATOLIY, hyperkalemia and metabolic acidosis -Continue Sodium Bicarbonate 650 mg PO TID -Continue Furosemide 40 mg PO BID -Initiate Bethanechol 10 mg PO TID -nephrology consulted, recommendations included above Hyperkalemia in setting of ANATOLIY -resolved -nephrology consulted as above Urinary Retention in setting of history of neurogenic bladder -Patient to self-catheterize at least BID -Bladder Scans Q8H UTI -Deescalate antibiotic therapy given available sensitivities for E Coli -Hyoscyamine 0.125 SL Q4H PRN for bladder spasms Chronic conditions requiring attention while inpatient: continue home meds unless otherwise listed below. Additional plans below. Hypertension CKD Diabetes Restless leg syndrome Rheumatoid arthritis Fibromyalgia DVT PPx: Enoxaparin 30 mg QD Diet: renal diet CODE STATUS: full code Dispo: inpatient, stable Plan of care Discussed with:?the medical team, the patient Documented By: Gilmer Tai MD 09/07/24 1142 Signed By: 09/07/24 1345 [facility]01-18-2025 [place] [address] Hospitalist Progress Note Signed Patient: Aislinn Wheeler MR#: [id number] : 1960 Acct:[id number] Age/Sex: 64 / F Adm Date: 5 Loc: Room: [address] [place] [address] Type: ADM IN Attending Dr: Gilmer Tai MD Copies to: ~ Date of Service: 09/06/2024 Subjective Subjective Narrative: Attending note: I saw the patient personally on the day of encounter. I reviewed the relevant history, and performed the miller elements of the physical examination. I reviewedthe relevant laboratory workup, radiological studies and the current treatment plan. 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 Ms. Aislinn Wheeler is a 64 year old female with a PMHx of hypertension, Chronic kidney disease, diabetes, restless leg syndrome, rheumatoid arthritis, lupus andfibromyalgia admitted for abnormal lab values after a routine lab check. She wasrecently admitted to the [facility] where she was treated for a urinary tract infection and hypokalemia. She had a valerio catheter placed at [place] that was subsequently removed. 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 Today Ms. Wheeler is on hospital day 1. She reports that she is having bladder irritation and dysuria. She denies fever, chills, chest pain, palpitations, SOB,and abdominal pain. Pertinent lab values from labs collected on 09/06/24 at the time of this documentation include: WBC 13.4 (8.4 on admission), Hgb 10.1 (10.0 on admission), Hct 31.3 (30.3 on admission), Na 132 (134 on admission), K 5.7 (5.7 on admission), Chloride 110 (109 on admission), Bicarbonate 16.2 (18.7 on admi ssion), BUN 45 (40 on admission), Cr 2.73 (2.48 on admission). Urine Culture collected on 09/05/24 pending as of this documentation Exam Physical Exam Vital Signs: Temp Pulse Resp BP Pulse Ox O2 Del Method 97.5 F L 67 18 150/74 H 98 Room Air 09/06/24 07:51 09/06/24 07:51 09/06/24 07:51 09/06/24 07:51 09/06/24 07:51 09/06/24 08:00 Const General: cooperative and no acute distress Orientation: alert, awake and oriented x3 Resp Effort & Inspection: normal respiratory effort Auscultation: clear to auscultation bilaterally Cardio Rate: regular rate Rhythm: regular rhythm GI Palpation: soft and nontender Neuro General: patient alert, patient awake and patient oriented x3 Extrem General: no clubbing, cyanosis or edema Objective Lab Results 09/07/24 06:00 09/07/24 06:00 Meds Allergies and Active Meds Allergies latex Allergy (Unknown, Verified 09/05/24 17:17) Unresponsive Active Meds: Active Medications Generic Name Dose Route Start Last Admin Trade Name Freq PRN Reason Stop Dose Admin Acetaminophen 1,000 mg 09/06/24 02:46 09/06/24 08:56 Acetaminophen 500 Mg Tablet PO 09/06/25 02:45 1,000 mg Q6H PRN Administration Fever or Pain Hydrocodone Bitart/Acetaminophen 1 tab 09/06/24 14:00 Hydrocodone/Acetaminophen 7.5-325mg Tablet PO Q8HR UZIEL Atorvastatin Calcium 20 mg 09/07/24 09:00 Atorvastatin 20 Mg Tablet PO 09/07/25 08:59 DAILY UZIEL Ceftriaxone Sodium 1 gm 09/06/24 00:30 09/06/24 01:26 Ceftriaxone 1 Gm/10 Ml Syringe IV-PUSH 1 gm Q24H UZIEL Administration Dextrose 0 gm 09/05/24 22:02 Dextrose 50% In Water 25 Gm/50 Ml Syringe IV-PUSH 09/05/25 22:01 PRN PRN Hypoglycemia Enoxaparin Sodium 30 mg 09/06/24 10:00 09/06/24 10:18 Enoxaparin 30 Mg/0.3 Ml Syringe SUBCUT 09/06/25 09:59 30 mg DAILY@1000 UZIEL Administration Furosemide 40 mg 09/06/24 16:00 Furosemide 40 Mg Tablet PO 09/06/25 15:59 BID@0800,1600 [facility] Glucose 0 gm 09/05/24 22:02 Dextrose 40% Gel 15 Gm Tube PO 09/05/25 22:01 PRN PRN Hypoglycemia Hyoscyamine 0.125 mg 09/06/24 02:46 09/06/24 08:56 Hyoscyamine Sulfate 0.125 Mg Tab.Rapdis SUBLINGUAL 09/06/25 02:45 0.125 mg Q4H PRN Administration Bladder Spasms Sodium Bicarbonate 150 meq/ 1,150 mls @ 100 mls/hr 09/06/24 10:30 Dextrose IV 09/06/24 21:59 .[id number] [facility] Magnesium Sulfate 4 gm in 100 mls @ 25 mls/hr 09/06/24 09:52 09/06/24 10:18 Magnesium Sulf 4 Gm-*Swfi* IV 09/06/24 13:51 25 mls/hr ONCE ONE Administration Insulin Aspart 0 units 09/06/24 08:00 09/06/24 07:53 Insulin Aspart 300 Units/3 Ml SUBCUT 09/06/25 07:59 1 units TID.WM.HS [facility] Administration Protocol Insulin Glargine 28 units 09/06/24 22:00 Insulin Glargine 300 Units/3 Ml Insuln.Pen SUBCUT 09/06/25 21:59 QHS [facility] Metoprolol Succinate 50 mg 09/06/24 09:00 09/06/24 08:56 Metoprolol Succinate 50 Mg Tab.Er.24h PO 09/06/25 08:59 50 mg DAILY UZIEL Administration Non-Formulary Medication 1 sliding scale dose 09/06/24 11:30 Insulin Lispro SUBCUT 09/06/25 11:29 AC [facility] Oxycodone/Acetaminophen 1 tab 09/05/24 21:58 09/06/24 10:18 Oxycodone/Acetaminophen 5-325 Mg Tablet PO 1 tab Q4H PRN Administration Pain Scale 4 - 7 Pregabalin 75 mg 09/06/24 21:00 Pregabalin 75 Mg Capsule PO 03/05/25 20:59 BID UZIEL Sodium Bicarbonate 650 mg 09/06/24 20:00 Sodium Bicarbonate 650 Mg Tablet PO 09/06/25 19:59 TID UZIEL Sodium Chloride 0 ml 09/05/24 17:17 09/06/24 01:26 Sodium Chloride 0.9 % 10 Ml Syringe IV-PUSH 09/05/25 17:16 10 ml PRN PRN Administration Flush A&P - Hospitalist Assessment/Plan (1) Urinary retention: (2) ANATOLIY (acute kidney injury): (3) Hyperkalemia: (4) History of neurogenic bladder: (5) Vitamin D deficiency: (6) Iron deficiency anemia: Plan Acute problems: ANATOLIY, metabolic acidosis and hyperkalemia -Initiate Sodium Bicarbonate 8.4% in D5 in Water IV (one bag) -Initiate Sodium Bicarbonate 650 mg PO TID after IV completion -Initiate Furosemide 40 mg BID -nephrology consulted, recommendations included above Hyperkalemia in setting of ANATOLIY -nephrology consulted as above Urinary Retention in setting of history of neurogenic bladder -Valerio Catheter in place -Bladder Scans Q8H UTI -Continue ceftriaxone 1 gm IV Q24H -Hyoscyamine 0.125 SL Q4H PRN for bladder spasms -Urine culture pending Chronic conditions requiring attention while inpatient: continue home meds unless otherwise listed below. Additional plans below. Hypertension CKD Diabetes Restless leg syndrome Rheumatoid arthritis Fibromyalgia DVT PPx: Enoxaparin 30 mg QD Diet: renal diet CODE STATUS: full code Dispo: inpatient, stable Plan of care Discussed with:?the medical team, the patient Documented By: Gilmer Tai MD 09/06/24 1053 Signed By: 09/07/24 1344 [facility]01-18-2025 Progress note Author Akin Dougherty [facility] Note Date/Time September 07, 2024 1 1:07am [facility] [address] [place], [place] [id number] Nephrology Progress Note Signed Patient: Aislinn Wheeler MR#: [id number] : 1960 Acct:[id number] Age/Sex: 64 / F Adm Date: 5 Loc: 3T Room: [address] [place] [address] Type: ADM IN Attending Dr: Gilmer Tai MD Copies to: ~ Date of Service: 09/07/2024 Subjective Subjective Narrative: Ms. Dewitt is a 64-year-old white female with history of DM2 that seems to be outof control and CKD stage IIIb with serum creatinine Paremyd between 1.3 to 1.5 mg/dL. She normally follow-up in our renal clinic with Dr. Sprague and recentlycreatinine started to increase more than 2 mg/dL. 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 Patient is known to have neurogenic bladder she uses self cath at home for quitesome time however recently she ran out of supplies. Patient was seen by Dr. Sprague in the office on 115 and had creatinine was found to be 2.7 mg/dL much higher than previous baseline, potassium 5.8 and blood pressure 210/110. Initially she went to the [place] ER on 09/04 and she had a CT scan of the abdomen that I personally reviewed the report that showed bilateral hydronephrosis to the level of the bladder neck with evidence of bladder wall thickness and urethritis. Patient stated that bladder scan was only 150 cc urine and she was able to micturate. She was started on oral antibiotics for UTI and was sent home. Patient was called again to come to [facility] as her potassium continues to be elevated 5.7 mEq/L with possibility of dialysis need. Evaluation in ER showed elevated blood pressure 210, potassium 5.7 and creatinine 2.7. Patient was treated by hyperkalemia protocol. Bladder scan showed 249 cc urine however it was not a postvoid residual. Urine analysis was suggestive of UTI, patient was started on ceftriaxone after sending urine culture. Nephrology was consulted for hyperkalemia and ANATOLIY. Interval history: Reviewed the CT scan that was done at [facility] showed bilateral hydronephrosis and distended urinary bladder. Valerio catheter was ordered at thepatient has neurogenic bladder however she was not able to tolerated and she asked to be removed. Patient was given furosemide and sodium bicarbonate tablet for acidosis and hyperkalemia. Potassium did improve down to 5.1 and acidosis did improve as well however creatinine still rising to 3.09 mg/dL. Bilateral kidney ultrasound was done yesterday that redemonstrated significant bilateral hydronephrosis Exam Physical Exam Vital Signs: Temp Pulse Resp BP Pulse Ox O2 Del Method 36.8 C 70 14 165/72 H 95 Room Air 09/07/24 08:00 09/07/24 08:00 09/07/24 08:00 09/07/24 08:00 09/07/24 08:00 09/07/24 08:00 Narrative: Constitutional: Appears comfortable and not in distress HEENT: No pallor or Jaundice Cardiovascular: RRR, normal S1-S2, no gallop or rub, No JVD Respiratory: Good bilateral air entry no wheezing or crackles Gastrointestinal: Soft, non tender, positive bowel sounds Extremities: No edema Skin: No rashes or bruises Musculoskeletal: No joints swellings or inflammation Neurology: Awake, alert, oriented ?3, No focal motor or sensory deficits Psych: Normal mood and affect Objective Intake and Output I&O: Intake & Output 09/04/24 09/05/24 09/06/24 09/07/24 23:59 23:59 23:59 23:59 Intake Total 150 / 150 660 / 660 Output Total 100 / 100 600 / 600 350 / 350 Balance -100 / -100 -450 / -450 310 / 310 Weight 59.7 kg 53.6 kg 59.5 kg Meds and Allergies Meds: Active Medications Acetaminophen (Acetaminophen 500 Mg Tablet) 1,000 mg PO Q6H PRN PRN Reason: Fever or Pain Stop: 09/06/25 02:45 Last Admin: 09/06/24 08:56 Dose: 1,000 mg Hydrocodone Bitart/Acetaminophen (Hydrocodone/Acetaminophen 7.5-325mg Tablet) 1tab PO Q8HR [facility] Last Admin: 09/07/24 05:03 Dose: 1 tab Atorvastatin Calcium (Atorvastatin 20 Mg Tablet) 20 mg PO DAILY [facility] Stop: 09/07/25 08:59 Last Admin: 09/07/24 08:11 Dose: 20 mg Bethanechol Chloride (Bethanechol 10 Mg Tablet) 10 mg PO TID [facility] Stop: 09/07/25 13:59 Ceftriaxone Sodium (Ceftriaxone 1 Gm/10 Ml Syringe) 1 gm IV-PUSH Q24H [facility] Last Admin: 09/06/24 23:46 Dose: 1 gm Dextrose (Dextrose 50% In Water 25 Gm/50 Ml Syringe) 0 gm IV-PUSH PRN PRN PRN Reason: Hypoglycemia Stop: 09/05/25 22:01 Enoxaparin Sodium (Enoxaparin 30 Mg/0.3 Ml Syringe) 30 mg SUBCUT DAILY@1000 [facility] Stop: 09/06/25 09:59 Last Admin: 09/07/24 09:07 Dose: 30 mg Furosemide (Furosemide 40 Mg Tablet) 40 mg PO BID@0800,1600 [facility] Stop: 09/06/25 15:59 Last Admin: 09/07/24 08:11 Dose: 40 mg Glucose (Dextrose 40% Gel 15 Gm Tube) 0 gm PO PRN PRN PRN Reason: Hypoglycemia Stop: 09/05/25 22:01 Hyoscyamine (Hyoscyamine Sulfate 0.125 Mg Tab.Rapdis) 0.125 mg SUBLINGUAL Q4H PRN PRN Reason: Bladder Spasms Stop: 09/06/25 02:45 Last Admin: 09/06/24 20:42 Dose: 0.125 mg Insulin Aspart (Insulin Aspart 300 Units/3 Ml) 0 units SUBCUT TID.WM.HS [facility]; Protocol Stop: 09/06/25 07:59 Last Admin: 09/07/24 08:12 Dose: 2 units Insulin Glargine (Insulin Glargine 300 Units/3 Ml Insuln.Pen) 28 units SUBCUT QHS [facility] Stop: 09/06/25 21:59 Last Admin: 09/06/24 21:52 Dose: 28 units Metoprolol Succinate (Metoprolol Succinate 50 Mg Tab.Er.24h) 50 mg PO DAILY [facility] Stop: 09/06/25 08:59 Last Admin: 09/07/24 08:11 Dose: 50 mg Oxycodone/Acetaminophen (Oxycodone/Acetaminophen 5-325 Mg Tablet) 1 tab PO Q4H PRN PRN Reason: Pain Scale 4 - 7 Last Admin: 09/06/24 10:18 Dose: 1 tab Pregabalin (Pregabalin 75 Mg Capsule) 75 mg PO BID [facility] Stop: 03/05/25 20:59 Last Admin: 09/07/24 08:11 Dose: 75 mg Sodium Bicarbonate (Sodium Bicarbonate 650 Mg Tablet) 650 mg PO TID [facility] Stop: 09/06/25 19:59 Last Admin: 09/07/24 08:11 Dose: 650 mg Sodium Chloride (Sodium Chloride 0.9 % 10 Ml Syringe) 0 ml IV-PUSH PRN PRN PRN Reason: Flush Stop: 09/05/25 17:16 Last Admin: 09/06/24 01: Dose: 10 ml Allergies latex Allergy (Unknown, Verified 09/05/24 17:17) Unresponsive Results - Nephrology Labs 09/07/24 06:00 09/07/24 06:00 Labs: 09/07/24 06:00 BUN 51 H Creatinine 3.09 H Albumin 3.0 L Radiology Impressions Impressions - last 24 hours: Impressions Renal Ultrasound 09/06/24 21:04 IMPRESSION : Moderate to severe bilateral hydronephrosis. Impression dictated by: Jori Ruiz M.D.09/06/2024 9:48 PM Dictation Location: [place] [address] Any impression(s) listed above is documentation that was entered by the reading physician into a diagnostic report(s) for Aislinn Wheeler. I have reviewed the report(s) and am incorporating any findings in the treatment plan of this patient where applicable. A&P - Nephrology Assessment/Plan (1) ANATOLIY (acute kidney injury): Assessment/Problem Details: She had elevated creatinine higher than the baseline with evidence of bilateral hydronephrosis and hydroureter on the CT scan of the abdomen that was done at [facility] on 05/05. Renal ultrasound on 09/06/2024 showed moderate to severe bilateral hydronephrosis (2) Uropathy, obstructive: Assessment/Problem Details: Patient has evidence of obstructive uropathy on the CT scan of the abdomen as stated above resulted in ANAOTLIY, hyperkalemia and metabolic acidosis (3) Hyperkalemia: Assessment/Problem Details: She has progressive hyperkalemia related to ANATOLIY and urine obstruction (4) History of neurogenic bladder: Assessment/Problem Details: Patient with history of neurogenic bladder, she used to self cath herself before. 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 (6) Diabetic nephropathy associated with type 2 diabetes mellitus: Assessment/Problem Details: Patient has longstanding history of diabetes that has been out of control with hemoglobin A1c between 11 and 12% on insulin. (7) Hypertensive nephropathy: Assessment/Problem Details: Blood pressure was elevated on admission more than 200. Plan * Patient was not able to tolerate Valerio catheter yesterday and she asked to be removed. She stated that she can do self cath if needed and she did that before. Will order self cath every 8 hours and as needed. Potassium did improve however creatinine still rising. * Add bethanechol 10 mg 3 times daily for neurogenic bladder. * Urology consult to address hydronephrosis and a serum creatinine still rising. Patient stated that she follow-up with urology at [facility] as well. * Continue sodium bicarb 650 mg 3 times daily. * Continue furosemide 40 mg p.o. twice a day as it will improve acidosis and hyperkalemia. Blood pressure is trending down. Amlodipine can be restarted later on if blood pressure continues to be elevated on furosemide. Ideally the patient should be on TIMBO inhibitors or ARBs once potassium is back to baseline.. * Continue ceftriaxone 1 g daily. Urine culture showed E. coli sensitive to ceftriaxone. * Monitor daily intake and output urine hospital stay. Documented By: Akin Dougherty MD 09/07/24 1055 Signed By: <Electronically signed by MD Akin Dougherty> 09/07/24 1104 [facility] Work Phone: [phone]) 815-226401-18-2025 [place] [address] Nephrology Progress Note Signed Patient: Aislinn Wheeler MR#: [id number] : 1960 Acct:[id number] Age/Sex: 64 / F Adm Date: 5 Loc: Room: [address] [place] [address] Type: ADM IN Attending Dr: Gilmer Tai MD Copies to: ~ Date of Service: 09/07/2024 Subjective Subjective Narrative: Ms. Dewitt is a 64-year-old white female with history of DM2 that seems to be outof control and CKD stage IIIb with serum creatinine Paremyd between 1.3 to 1.5 mg/dL. She normally follow-up in our renal clinic with Dr. Sprague and recentlycreatinine started to increase more than 2 mg/dL. 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 Patient is known to have neurogenic bladder she uses self cath at home for quitesome time however recently she ran out of supplies. Patient was seen by Dr. Sprague in the office on 115 and had creatinine was found to be 2.7 mg/dL much higher than previous baseline, potassium 5.8 and blood pressure 210/110. Initi ally she went to the [place] ER on 09/04 and she had a CT scan of the abdomen that I personally reviewed the report that showed bilateral hydronephrosis to the level of the bladder neck with evidenceof bladder wall thickness and urethritis. Patient stated that bladder scan was only 150 cc urine and she was able to micturate. She was started on oral antibiotics for UTI and was sent home. Patient was called again to come to [facility] as her potassium continues to be elevated 5.7 mEq/L with possibility of dialysis need. Evaluation in ER showed elevated blood pressure 210, potassium 5.7 and creatinine 2.7. Patient was treated by hyperkalemia protocol. Bladder scan showed 249 cc urine however it was not a postvoid residual. Urine analysis was suggestive of UTI, patientwas started on ceftriaxone after sending urine culture. Nephrology was consulted for hyperkalemia and ANATOLIY. Interval history: Reviewed the CT scan that was done at [facility] showed bilateral hydronephrosis and distended urinary bladder. Valerio catheter was ordered at thepatient has neurogenic bladder however she was not able to tolerated and she asked to be removed. Patient was given furosemide and sodium bicarbonate tablet for acidosis and hyperkalemia. Potassiumdid improve down to 5.1 and acidosis did improve as well however creatinine still rising to 3.09 mg/dL. Bilateral kidney ultrasound was done yesterday that redemonstrated significant bilateral hydronephrosis Exam Physical Exam Vital Signs: Temp Pulse Resp BP Pulse Ox O2 Del Method 36.8 C 70 14 165/72 H 95 Room Air 09/07/24 08:00 09/07/24 08:00 09/07/24 08:00 09/07/24 08:00 09/07/24 08:00 09/07/24 08:00 Narrative: Constitutional: Appears comfortable and not in distress HEENT: No pallor or Jaundice Cardiovascular: RRR, normal S1-S2, no gallop or rub, No JVD Respiratory: Good bilateral air entry no wheezing or crackles Gastrointestinal: Soft, non tender, positive bowel sounds Extremities: No edema Skin: No rashes or bruises Musculoskeletal: No joints swellings or inflammation Neurology: Awake, alert, oriented ?3, No focal motor or sensory deficits Psych: Normal mood and affect Objective Intake and Output I&O: Intake & Output 09/04/24 09/05/24 09/06/24 09/07/24 23:59 23:59 23:59 23:59 Intake Total 150 / 150 660 / 660 Output Total 100 / 100 600 / 600 350 / 350 Balance -100 / -100 -450 / -450 310 / 310 Weight 59.7 kg 53.6 kg 59.5 kg Meds and Allergies Meds: Active Medications Acetaminophen (Acetaminophen 500 Mg Tablet) 1,000 mg PO Q6H PRN PRN Reason: Fever or Pain Stop: 09/06/25 02:45 Last Admin: 09/06/24 08:56 Dose: 1,000 mg Hydrocodone Bitart/Acetaminophen (Hydrocodone/Acetaminophen 7.5-325mg Tablet) 1tab PO Q8HR [facility] Last Admin: 09/07/24 05:03 Dose: 1 tab Atorvastatin Calcium (Atorvastatin 20 Mg Tablet) 20 mg PO DAILY [facility] Stop: 09/07/25 08:59 Last Admin: 09/07/24 08:11 Dose: 20 mg Bethanechol Chloride (Bethanechol 10 Mg Tablet) 10 mg PO TID [facility] Stop: 09/07/25 13:59 Ceftriaxone Sodium (Ceftriaxone 1 Gm/10 Ml Syringe) 1 gm IV-PUSH Q24H [facility] Last Admin: 09/06/24 23:46 Dose: 1 gm Dextrose (Dextrose 50% In Water 25 Gm/50 Ml Syringe) 0 gm IV-PUSH PRN PRN PRN Reason: Hypoglycemia Stop: 09/05/25 22:01 Enoxaparin Sodium (Enoxaparin 30 Mg/0.3 Ml Syringe) 30 mg SUBCUT DAILY@1000 [facility] Stop: 09/06/25 09:59 Last Admin: 09/07/24 09:07 Dose: 30 mg Furosemide (Furosemide 40 Mg Tablet) 40 mg PO BID@0800,1600 [facility] Stop: 09/06/25 15:59 Last Admin: 09/07/24 08:11 Dose: 40 mg Glucose (Dextrose 40% Gel 15 Gm Tube) 0 gm PO PRN PRN PRN Reason: Hypoglycemia Stop: 09/05/25 22:01 Hyoscyamine (Hyoscyamine Sulfate 0.125 Mg Tab.Rapdis) 0.125 mg SUBLINGUAL Q4H PRN PRN Reason: Bladder Spasms Stop: 09/06/25 02:45 Last Admin: 09/06/24 20:42 Dose: 0.125 mg Insulin Aspart (Insulin Aspart 300 Units/3 Ml) 0 units SUBCUT TID.WM.HS [facility]; Protocol Stop: 09/06/25 07:59 Last Admin: 09/07/24 08:12 Dose: 2 units Insulin Glargine (Insulin Glargine 300 Units/3 Ml Insuln.Pen) 28 units SUBCUT QHS [facility] Stop: 09/06/25 21:59 Last Admin: 09/06/24 21:52 Dose: 28 units Metoprolol Succinate (Metoprolol Succinate 50 Mg Tab.Er.24h) 50 mg PO DAILY [facility] Stop: 09/06/25 08:59 Last Admin: 09/07/24 08:11 Dose: 50 mg Oxycodone/Acetaminophen (Oxycodone/Acetaminophen 5-325 Mg Tablet) 1 tab PO Q4H PRN PRN Reason: Pain Scale 4 - 7 Last Admin: 09/06/24 10:18 Dose: 1 tab Pregabalin (Pregabalin 75 Mg Capsule) 75 mg PO BID [facility] Stop: 03/05/25 20:59 Last Admin: 09/07/24 08:11 Dose: 75 mg Sodium Bicarbonate (Sodium Bicarbonate 650 Mg Tablet) 650 mg PO TID [facility] Stop: 09/06/25 19:59 Last Admin: 09/07/24 08:11 Dose: 650 mg Sodium Chloride (Sodium Chloride 0.9 % 10 Ml Syringe) 0 ml IV-PUSH PRN PRN PRN Reason: Flush Stop: 09/05/25 17:16 Last Admin: 09/06/24 01:26 Dose: 10 ml Allergies latex Allergy (Unknown, Verified 09/05/24 17:17) Unresponsive Results - Nephrology Labs 09/07/24 06:00 09/07/24 06:00 Labs: 09/07/24 06:00 BUN 51 H Creatinine 3.09 H Albumin 3.0 L Radiology Impressions Impressions - last 24 hours: Impressions Renal Ultrasound 09/06/24 21:04 IMPRESSION : Moderate to severe bilateral hydronephrosis. Impression dictated by: Jori Ruiz M.D.09/06/2024 9:48 PM Dictation Location: [place] [address] Any impression(s) listed above is documentation that was entered by the reading physician into a diagnostic report(s) for Aislinn Wheeler. I have reviewed the report(s) and am incorporating any findings in the treatment plan of this patient where applicable. A&P - Nephrology Assessment/Plan (1) ANATOLIY (acute kidney injury): Assessment/Problem Details: She had elevated creatinine higher than the baseline with evidence of bilateral hydronephrosis and hydroureter on the CT scan of the abdomen that was done at [facility] on 05/05. Renal ultrasound on 09/06/2024 showed moderate to severe bilateral hydronephrosis (2) Uropathy, obstructive: Assessment/Problem Details: Patient has evidence of obstructive uropathy on the CT scan of the abdomen as stated above resultedin ANATOLIY, hyperkalemia and metabolic acidosis (3) Hyperkalemia: Assessment/Problem Details: She has progressive hyperkalemia related to ANATOLIY and urine obstruction (4) History of neurogenic bladder: Assessment/Problem Details: Patient with history of neurogenic bladder, she used to self cath herself before. 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 (6) Diabetic nephropathy associated with type 2 diabetes mellitus: Assessment/Problem Details: Patient has longstanding history of diabetes that has been out of control with hemoglobin A1c between 11 and 12% on insulin. (7) Hypertensive nephropathy: Assessment/Problem Details: Blood pressure was elevated on admission more than 200. Plan * Patient was not able to tolerate Valerio catheter yesterday and she asked to be removed. She statedthat she can do self cath if needed and she did that before. Will order self cath every 8 hours andas needed. Potassium did improve however creatinine still rising. * Add bethanechol 10 mg 3 times daily for neurogenic bladder. * Urology consult to address hydronephrosis and a serum creatinine still rising. Patient stated that she follow-up with urology at [facility] as well. * Continue sodium bicarb 650 mg 3 times daily. * Continue furosemide 40 mg p.o. twice a day as it will improve acidosis and hyperkalemia. Blood pressure is trending down. Amlodipine can be restarted later on if blood pressure continues to be elevated on furosemide. Ideally the patient should be on TIMBO inhibitors or ARBs once potassium is back to baseline.. * Continue ceftriaxone 1 g daily. Urine culture showed E. coli sensitive to ceftriaxone. * Monitor daily intake and output urine hospital stay. Documented By: Akin Dougherty MD 09/07/24 1055 Signed By: 09/07/24 1107 [facility]01-17-2025 Radiology Diagnostic study note [facility] Main [place] [address] [place] [address] Ultrasound Report Signed Patient: Aislinn Wheeler MR#: [id number] : 1960 Acct:[id number] Age/Sex: 64 / F ADM Date: 5 Loc: Room: [address] [place] [address] Type: ADM IN Attending Dr: Gilmer Tai MD Ordering Provider: Ashley Diaz APRN Date of Service: 09/06/24 US/US renal BI: ANATOLIY Copies to: MD Ashley Love APRN~ Bilateral Renal Ultrasound HISTORY: Acute kidney injury COMPARISON: 09/04/2024 RIGHT kidney measures 8.7 cm. LEFT kidney measures 10.2 cm. Hydronephrosis: Bilateral hydronephrosis. AP dimension on the right 2.8 cm AP dimension of the left2.2 cm. RENAL STONE: 3 mm right shadowing echogenic stone. RENAL LESIONS: No renal lesion identified. Lobular contours of both kidneys. URINARY BLADDER: Bilateral ureteral jets identified. Irregularity urinary bladder wall thickening up to 7 mm. REPRODUCTIVE STRUCTURES Not assessed US/US renal BI IMPRESSION : Moderate to severe bilateral hydronephrosis. Impression dictated by: Jori Ruiz M.D.09/06/2024 9:48 PM Dictation Location: [place] [address] Tech: Griselda Vital Transcribed By: AMEE 09/06/242147 Dictated By: Jori Ruiz DO 09/06/242145 Signed By: 09/06/242147 [facility]01-17-2025 Consult note Author Akin Dougherty [facility] Note Date/Time September 06, 2024 1 1:16[facility] [address] [place] [address] Nephrology Consult Note Signed Patient: Aislinn Wheeler MR#: [id number] : 1960 Acct:[id number] Age/Sex: 64 / F Adm Date: 5 Loc: Room: [address] [place] [address] Type: ADM IN Attending Dr: Gilmer Tai MD Copies to: MD Akin Love MD Lisa J Aichholz, CORN CUTTER OPERATOR-C~ Providers Consult Date: 09/06/24 Requesting Provider: Gilmer Tai MD Primary Care Provider: Agusto Olmstead [facility] Reason for Consult: ANATOLIY on CKD stage III and hyperkalemia History of Present Illness: Ms. Dewitt is a 64-year-old white female with history of DM2 that seems to be outof control and CKD stage IIIb with serum creatinine Paremyd between 1.3 to 1.5 mg/dL. She normally follow-up in our renal clinic with Dr. Sprague and recentlycreatinine started to increase more than 2 mg/dL. 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 Patient is known to have neurogenic bladder she uses self cath at home for quitesome time however recently she ran out of supplies. Patient was seen by Dr. Sprague in the office on 115 and had creatinine was found to be 2.7 mg/dL much higher than previous baseline, potassium 5.8 and blood pressure 210/110. Initially she went to the [place] ER on 09/04 and she had a CT scan of the abdomen that I personally reviewed the report that showed bilateral hydronephrosis to the level of the bladder neck with evidence of bladder wall thickness and urethritis. Patient stated that bladder scan was only 150 cc urine and she was able to micturate. She was started on oral antibiotics for UTI and was sent home. Patient was called again to come to [facility] as her potassium continues to be elevated 5.7 mEq/L with possibility of dialysis need. Evaluation in ER showed elevated blood pressure 210, potassium 5.7 and creatinine 2.7. Patient was treated by hyperkalemia protocol. Bladder scan showed 249 cc urine however it was not a postvoid residual. Urine analysis was suggestive of UTI, patient was started on ceftriaxone after sending urine culture. Nephrology was consulted for hyperkalemia and ANATOLIY. Patient is being seen and examined in her room. She is awake, no fever or chills. Her main complaint is burning urine. She admits that diabetes and recent A1c is down to 10%. Patient was started on amlodipine and metoprolol during hospital stay with improvement of blood pressure down to 150/74. Repeat blood work showed mild acidosis with CO2 16.2. Urine was cloudy with 300 mg glucosuria positive nitrates and 4+ leukocyte esterase and innumerable WBCs with many WBCs clumps. Patient denies any nausea or vomiting. No chest pain. She is able to eat and drink. Review of Systems Review of Systems All other systems reviewed & are negative unless noted below or in HPI Constitutional Constitutional: Reports system reviewed and no additional complaints, except as documented Cardiovascular Cardiovascular: Reports system reviewed and no additional complaints, except as documented Respiratory Respiratory: Reports system reviewed and no additional complaints, except as documented Gastrointestinal Gastrointestinal: Reports system reviewed and no additional complaints, except as documented Neurologic Neurologic: Reports system reviewed and no additional complaints, except as documented Hematologic/Lymphatic Hematologic/Lymphatic: Reports system reviewed and no additional complaints, except as documented [facility] Medical History (Updated 09/06/24 @ 11:09 by Akin Dougherty MD) Hypertension CKD (chronic kidney disease) Restless leg Fibromyalgia Rheumatoid arthritis Lupus Diabetes Family History Brother Heart disease Legacy FamHx Relation: Brother(s) Hypertension Legacy FamHx Relation: Brother(s) Father Heart disease Diabetes Hypertension Cancer Legacy FamHx Problem: Diagnosed with Cancer Mother Heart disease History of stroke Legacy FamHx Problem: Diagnosed with Stroke Son Heart disease Sister Hypertension Diabetes Heart disease Social History Smoking Status: Never smoker Substance Use Type: None Meds Medications & Allergies Allergies latex Allergy (Unknown, Verified 09/05/24 17:17) Unresponsive Home Medications calcitriol 0.25 mcg capsule 0.25 mcg PO 3XW #30 caps 06/05/24 [Rx Confirmed 09/06/24] cetirizine 10 mg tablet 10 mg PO DAILY PRN allergy symptoms 06/05/24 [History Confirmed 09/06/24] ferrous sulfate 325 mg (65 mg iron) tablet 325 mg PO DAILY 06/05/24 [History Confirmed 09/06/24] ondansetron 4 mg disintegrating tablet 4 mg PO Q8HR PRN nausea and vomiting 06/05/24 [History Confirmed 09/06/24] amlodipine 5 mg tablet 5 mg PO ONCE 09/04/24 [History Confirmed 09/06/24] fluticasone propionate 50 mcg/actuation nasal spray,suspension 2 spray intranasal DAILY PRN nasal congestion 09/04/24 [History Confirmed 09/06/24] hydrocodone 7.5 mg-acetaminophen 325 mg tablet 1 tab PO Q8HR 09/04/24 [History Confirmed 09/06/24] metoprolol succinate 50 mg tablet,extended release 24 hr 50 mg PO DAILY 09/04/24[History Confirmed 09/06/24] pregabalin 150 mg capsule 150 mg PO Q8HR 09/04/24 [History Confirmed 09/06/24] atorvastatin 20 mg tablet 20 mg PO DAILY 09/06/24 [History Confirmed 09/06/24] insulin glargine 100 unit/mL (3 mL) subcutaneous pen (Lantus Solostar U-100 Insulin) 28 unit subcut QHS 09/06/24 [History Confirmed 09/06/24] insulin lispro 100 unit/mL subcutaneous cartridge 1 sliding scale dose subcut AC09/06/24 [History Confirmed 09/06/24] nitroglycerin 0.4 mg sublingual tablet 0.4 mg sublingual Q5M PRN chest pain 09/06/24 [History Confirmed 09/06/24] Active Medications: Active Medications Acetaminophen (Acetaminophen 500 Mg Tablet) 1,000 mg PO Q6H PRN PRN Reason: Fever or Pain Stop: 09/06/25 02:45 Last Admin: 09/06/24 08:56 Dose: 1,000 mg Hydrocodone Bitart/Acetaminophen (Hydrocodone/Acetaminophen 7.5-325mg Tablet) 1tab PO Q8HR [facility] Atorvastatin Calcium (Atorvastatin 20 Mg Tablet) 20 mg PO DAILY [facility] Stop: 09/07/25 08:59 Ceftriaxone Sodium (Ceftriaxone 1 Gm/10 Ml Syringe) 1 gm IV-PUSH Q24H [facility] Last Admin: 09/06/24 01:26 Dose: 1 gm Dextrose (Dextrose 50% In Water 25 Gm/50 Ml Syringe) 0 gm IV-PUSH PRN PRN PRN Reason: Hypoglycemia Stop: 09/05/25 22:01 Enoxaparin Sodium (Enoxaparin 30 Mg/0.3 Ml Syringe) 30 mg SUBCUT DAILY@1000 [facility] Stop: 09/06/25 09:59 Last Admin: 09/06/24 10:18 Dose: 30 mg Furosemide (Furosemide 40 Mg Tablet) 40 mg PO BID@0800,1600 [facility] Stop: 09/06/25 15:59 Glucose (Dextrose 40% Gel 15 Gm Tube) 0 gm PO PRN PRN PRN Reason: Hypoglycemia Stop: 09/05/25 22:01 Hyoscyamine (Hyoscyamine Sulfate 0.125 Mg Tab.Rapdis) 0.125 mg SUBLINGUAL Q4H PRN PRN Reason: Bladder Spasms Stop: 09/06/25 02:45 Last Admin: 09/06/24 08:56 Dose: 0.125 mg Sodium Bicarbonate 150 meq/ (Dextrose) 1,150 mls @ 100 mls/hr IV .[id number] [facility] Stop: 09/06/24 21:59 Magnesium Sulfate (Magnesium Sulf 4 Gm-*Swfi*) 4 gm in 100 mls @ 25 mls/hr IV ONCE ONE Stop: 09/06/24 13:51 Last Admin: 09/06/24 10:18 Dose: 25 mls/hr Insulin Aspart (Insulin Aspart 300 Units/3 Ml) 0 units SUBCUT TID.[facility]; Protocol Stop: 09/06/25 07:59 Last Admin: 09/06/24 07:53 Dose: 1 units Insulin Glargine (Insulin Glargine 300 Units/3 Ml Insuln.Pen) 28 units SUBCUT QHS [facility] Stop: 09/06/25 21:59 Metoprolol Succinate (Metoprolol Succinate 50 Mg Tab.Er.24h) 50 mg PO DAILY [facility] Stop: 09/06/25 08:59 Last Admin: 09/06/24 08:56 Dose: 50 mg Non-Formulary Medication (Insulin Lispro) 1 sliding scale dose SUBCUT AC [facility] Stop: 09/06/25 11:29 Oxycodone/Acetaminophen (Oxycodone/Acetaminophen 5-325 Mg Tablet) 1 tab PO Q4H PRN PRN Reason: Pain Scale 4 - 7 Last Admin: 09/06/24 10:18 Dose: 1 tab Pregabalin (Pregabalin 75 Mg Capsule) 75 mg PO BID [facility] Stop: 03/05/25 20:59 Sodium Bicarbonate (Sodium Bicarbonate 650 Mg Tablet) 650 mg PO TID [facility] Stop: 09/06/25 19:59 Sodium Chloride (Sodium Chloride 0.9 % 10 Ml Syringe) 0 ml IV-PUSH PRN PRN PRN Reason: Flush Stop: 09/05/25 17:16 Last Admin: 09/06/24 01:26 Dose: 10 ml Exam Physical Exam Vital Signs: Temp Pulse Resp BP Pulse Ox O2 Del Method 36.4 C L 67 18 150/74 H 98 Room Air 09/06/24 07:51 09/06/24 07:51 09/06/24 07:51 09/06/24 07:51 09/06/24 07:51 09/06/24 08:00 Narrative: Constitutional: Appears comfortable and not in distress HEENT: No pallor or Jaundice Cardiovascular: RRR, normal S1-S2, no gallop or rub, No JVD Respiratory: Good bilateral air entry no wheezing or crackles Gastrointestinal: Soft, non tender, positive bowel sounds Extremities: No edema Skin: No rashes or bruises Musculoskeletal: No joints swellings or inflammation Neurology: Awake, alert, oriented ?3, No focal motor or sensory deficits Psych: Normal mood and affect Results - Nephrology Labs 09/06/24 06:14 09/06/24 06:14 Labs: 09/05/24 09/05/24 09/06/24 17:56 18:19 06:14 BUN 40 H 45 H Creatinine 2.48 H 2.73 H Phosphorus 5.4 H Albumin 3.3 L 3.7 Urine Color Dark-yellow A Urine Appearance Cloudy A Urine pH 6.0 Ur Specific [place] 1.007 Urine Protein 70 H Urine Glucose (UA) 300 H Urine Ketones Negative Urine Occult Blood 1+ H Urine Nitrite Positive H Ur Leukocyte Esterase 4+ H Urine RBC 3-4 Urine WBC Innumerable H Urine Bacteria 4+ H Radiology Impressions Impressions - last 24 hours: Any impression(s) listed above is documentation that was entered by the reading physician into a diagnostic report(s) for Aislinn Wheeler. I have reviewed the report(s) and am incorporating any findings in the treatment plan of this patient where applicable. A&P - Nephrology Assessment/Plan (1) ANATOLIY (acute kidney injury): Assessment/Problem Details: She had elevated creatinine higher than the baseline with evidence of bilateral hydronephrosis and hydroureter on the CT scan of the abdomen that was done at [facility] on 05/05. (2) Uropathy, obstructive: Assessment/Problem Details: Patient has evidence of obstructive uropathy on the CT scan of the abdomen as stated above resulted in ANATOLIY, hyperkalemia and metabolic acidosis (3) Hyperkalemia: Assessment/Problem Details: She has progressive hyperkalemia related to ANATOLIY and urine obstruction (4) History of neurogenic bladder: Assessment/Problem Details: Patient with history of neurogenic bladder, she used to self cath herself before. 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 (6) Diabetic nephropathy associated with type 2 diabetes mellitus: Assessment/Problem Details: Patient has longstanding history of diabetes that has been out of control with hemoglobin A1c between 11 and 12% on insulin. (7) Hypertensive nephropathy: Assessment/Problem Details: Blood pressure was elevated on admission more than 200. Plan * Patient really had urgent hyperkalemia treatment in the ER including insulin and Lokelma. * Considering the acidosis, patient was started on dextrose with 150 mEq sodium bicarb and thumb 1 L. Will start sodium bicarbonate tablets 650 mg 3 times daily after she is done with IV fluid. * Will stop amlodipine and treat hypertension with furosemide 40 mg p.o. twice a day as it will improve acidosis and hyperkalemia. Amlodipine can be restarted later on if blood pressure continues to be elevated on furosemide. Ideally the patient should be on TIMBO inhibitors or ARBs once potassium is back to baseline. * Insert Valerio catheter at the patient has evidence of bilateral hydronephrosis. * Agree with ceftriaxone pending the result of urine culture and blood culture. * Monitor daily intake and output urine hospital stay. Valerio catheter can be removed at the time of discharge after improvement of AKIand hyperkalemia and the patient should continue self cath as outpatient. Patient need to follow-up with urology as outpatient for cytometry and decision about long-term self cath. I appreciate this consultation and will be happy to follow the patient with you during hospital stay. This document was dictated utilizing computerized voice recognition technology. Errors in grammar, spelling, and or syntax may be noted. The creator of this document does not proofread for this. Plan of care was discussed with Dr. Tai Documented By: Akin Dougherty MD 09/06/24 1056 Signed By: <Electronically signed by MD Akin Dougherty> 09/06/24 1116 [facility] Work Phone: [phone]) 969-633901-17-2025 [place] [address] Nephrology Consult Note Signed Patient: Aislinn Wheeler MR#: [id number] : 1960 Acct:[id number] Age/Sex: 64 / F Adm Date: 5 Loc: Room: [address] [place] [address] Type: ADM IN Attending Dr: Gilmer Tai MD Copies to: MD Akin Love MD Lisa J Aichholz, CORN CUTTER OPERATOR-C~ Providers Consult Date: 09/06/24 Requesting Provider: Gilmer Tai MD Primary Care Provider: Agusto Olmstead [facility] Reason for Consult: ANATOLIY on CKD stage III and hyperkalemia History of Present Illness: Ms. Dewitt is a 64-year-old white female with history of DM2 that seems to be outof control and CKD stage IIIb with serum creatinine Paremyd between 1.3 to 1.5 mg/dL. She normally follow-up in our renal clinic with Dr. Sprague and recentlycreatinine started to increase more than 2 mg/dL. 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 Patient is known to have neurogenic bladder she uses self cath at home for quitesome time however recently she ran out of supplies. Patient was seen by Dr. Sprague in the office on 115 and had creatinine was found to be 2.7 mg/dL much higher than previous baseline, potassium 5.8 and blood pressure 210/110. Initi ally she went to the [place] ER on 09/04 and she had a CT scan of the abdomen that I personally reviewed the report that showed bilateral hydronephrosis to the level of the bladder neck with evidenceof bladder wall thickness and urethritis. Patient stated that bladder scan was only 150 cc urine and she was able to micturate. She was started on oral antibiotics for UTI and was sent home. Patient was called again to come to [facility] as her potassium continues to be elevated 5.7 mEq/L with possibility of dialysis need. Evaluation in ER showed elevated blood pressure 210, potassium 5.7 and creatinine 2.7. Patient was treated by hyperkalemia protocol. Bladder scan showed 249 cc urine however it was not a postvoid residual. Urine analysis was suggestive of UTI, patientwas started on ceftriaxone after sending urine culture. Nephrology was consulted for hyperkalemia and ANATOLIY. Patient is being seen and examined in her room. She is awake, no fever or chills. Her main complaint is burning urine. She admits that diabetes and recent A1c is down to 10%. Patient was started on amlodipine and metoprolol during hospital stay with improvement of blood pressure down to 150/74. Repeat blood work showed mild acidosis with CO2 16.2. Urine was cloudy with 300 mg glucosuria positive nitrates and 4+ leukocyte esterase and innumerable WBCs with many WBCs clumps. Patient denies any nausea or vomiting. No chest pain. She is able to eat and drink. Review of Systems Review of Systems All other systems reviewed & are negative unless noted below or in HPI Constitutional Constitutional: Reports system reviewed and no additional complaints, except as documented Cardiovascular Cardiovascular: Reports system reviewed and no additional complaints, except as documented Respiratory Respiratory: Reports system reviewed and no additional complaints, except as documented Gastrointestinal Gastrointestinal: Reports system reviewed and no additional complaints, except as documented Neurologic Neurologic: Reports system reviewed and no additional complaints, except as documented Hematologic/Lymphatic Hematologic/Lymphatic: Reports system reviewed and no additional complaints, except as documented [facility] Medical History (Updated 09/06/24 @ 11:09 by Akin Dougherty MD) Hypertension CKD (chronic kidney disease) Restless leg Fibromyalgia Rheumatoid arthritis Lupus Diabetes Family History Brother Heart disease Legacy FamHx Relation: Brother(s) Hypertension Legacy FamHx Relation: Brother(s) Father Heart disease Diabetes Hypertension Cancer Legacy FamHx Problem: Diagnosed with Cancer Mother Heart disease History of stroke Legacy FamHx Problem: Diagnosed with Stroke Son Heart disease Sister Hypertension Diabetes Heart disease Social History Smoking Status: Never smoker Substance Use Type: None Meds Medications & Allergies Allergies latex Allergy (Unknown, Verified 09/05/24 17:17) Unresponsive Home Medications calcitriol 0.25 mcg capsule 0.25 mcg PO 3XW #30 caps 06/05/24 [Rx Confirmed 09/06/24] cetirizine 10 mg tablet 10 mg PO DAILY PRN allergy symptoms 06/05/24 [History Confirmed 09/06/24] ferrous sulfate 325 mg (65 mg iron) tablet 325 mg PO DAILY 06/05/24 [History Confirmed 09/06/24] ondansetron 4 mg disintegrating tablet 4 mg PO Q8HR PRN nausea and vomiting 06/05/24 [History Confirmed 09/06/24] amlodipine 5 mg tablet 5 mg PO ONCE 09/04/24 [History Confirmed 09/06/24] fluticasone propionate 50 mcg/actuation nasal spray,suspension 2 spray intranasal DAILY PRN nasal congestion 09/04/24 [History Confirmed 09/06/24] hydrocodone 7.5 mg-acetaminophen 325 mg tablet 1 tab PO Q8HR 09/04/24 [History Confirmed 09/06/24] metoprolol succinate 50 mg tablet,extended release 24 hr 50 mg PO DAILY 09/04/24[History Confirmed 09/06/24] pregabalin 150 mg capsule 150 mg PO Q8HR 09/04/24 [History Confirmed 09/06/24] atorvastatin 20 mg tablet 20 mg PO DAILY 09/06/24 [History Confirmed 09/06/24] insulin glargine 100 unit/mL (3 mL) subcutaneous pen (Lantus Solostar U-100 Insulin) 28 unit subcutQHS 09/06/24 [History Confirmed 09/06/24] insulin lispro 100 unit/mL subcutaneous cartridge 1 sliding scale dose subcut AC09/06/24 [History Confirmed 09/06/24] nitroglycerin 0.4 mg sublingual tablet 0.4 mg sublingual Q5M PRN chest pain 09/06/24 [History Confirmed 09/06/24] Active Medications: Active Medications Acetaminophen (Acetaminophen 500 Mg Tablet) 1,000 mg PO Q6H PRN PRN Reason: Fever or Pain Stop: 09/06/25 02:45 Last Admin: 09/06/24 08:56 Dose: 1,000 mg Hydrocodone Bitart/Acetaminophen (Hydrocodone/Acetaminophen 7.5-325mg Tablet) 1tab PO Q8HR [facility] Atorvastatin Calcium (Atorvastatin 20 Mg Tablet) 20 mg PO DAILY [facility] Stop: 09/07/25 08:59 Ceftriaxone Sodium (Ceftriaxone 1 Gm/10 Ml Syringe) 1 gm IV-PUSH Q24H [facility] Last Admin: 09/06/24 01:26 Dose: 1 gm Dextrose (Dextrose 50% In Water 25 Gm/50 Ml Syringe) 0 gm IV-PUSH PRN PRN PRN Reason: Hypoglycemia Stop: 09/05/25 22:01 Enoxaparin Sodium (Enoxaparin 30 Mg/0.3 Ml Syringe) 30 mg SUBCUT DAILY@1000 [facility] Stop: 09/06/25 09:59 Last Admin: 09/06/24 10:18 Dose: 30 mg Furosemide (Furosemide 40 Mg Tablet) 40 mg PO BID@0800,1600 [facility] Stop: 09/06/25 15:59 Glucose (Dextrose 40% Gel 15 Gm Tube) 0 gm PO PRN PRN PRN Reason: Hypoglycemia Stop: 09/05/25 22:01 Hyoscyamine (Hyoscyamine Sulfate 0.125 Mg Tab.Rapdis) 0.125 mg SUBLINGUAL Q4H PRN PRN Reason: Bladder Spasms Stop: 09/06/25 02:45 Last Admin: 09/06/24 08:56 Dose: 0.125 mg Sodium Bicarbonate 150 meq/ (Dextrose) 1,150 mls @ 100 mls/hr IV .[id number] [facility] Stop: 09/06/24 21:59 Magnesium Sulfate (Magnesium Sulf 4 Gm-*Swfi*) 4 gm in 100 mls @ 25 mls/hr IV ONCE ONE Stop: 09/06/24 13:51 Last Admin: 09/06/24 10:18 Dose: 25 mls/hr Insulin Aspart (Insulin Aspart 300 Units/3 Ml) 0 units SUBCUT TID.[facility]; Protocol Stop: 09/06/25 07:59 Last Admin: 09/06/24 07:53 Dose: 1 units Insulin Glargine (Insulin Glargine 300 Units/3 Ml Insuln.Pen) 28 units SUBCUT QHS [facility] [facility] Stop: 09/06/25 21:59 Metoprolol Succinate (Metoprolol Succinate 50 Mg Tab.Er.24h) 50 mg PO DAILY [facility] Stop: 09/06/25 08:59 Last Admin: 09/06/24 08:56 Dose: 50 mg Non-Formulary Medication (Insulin Lispro) 1 sliding scale dose SUBCUT AC [facility] Stop: 09/06/25 11:29 Oxycodone/Acetaminophen (Oxycodone/Acetaminophen 5-325 Mg Tablet) 1 tab PO Q4H PRN PRN Reason: Pain Scale 4 - 7 Last Admin: 09/06/24 10:18 Dose: 1 tab Pregabalin (Pregabalin 75 Mg Capsule) 75 mg PO BID [facility] Stop: 03/05/25 20:59 Sodium Bicarbonate (Sodium Bicarbonate 650 Mg Tablet) 650 mg PO TID [facility] Stop: 09/06/25 19:59 Sodium Chloride (Sodium Chloride 0.9 % 10 Ml Syringe) 0 ml IV-PUSH PRN PRN PRN Reason: Flush Stop: 09/05/25 17:16 Last Admin: 09/06/24 01:26 Dose: 10 ml Exam Physical Exam Vital Signs: Temp Pulse Resp BP Pulse Ox O2 Del Method 36.4 C L 67 18 150/74 H 98 Room Air 09/06/24 07:51 09/06/24 07:51 09/06/24 07:51 09/06/24 07:51 09/06/24 07:51 09/06/24 08:00 Narrative: Constitutional: Appears comfortable and not in distress HEENT: No pallor or Jaundice Cardiovascular: RRR, normal S1-S2, no gallop or rub, No JVD Respiratory: Good bilateral air entry no wheezing or crackles Gastrointestinal: Soft, non tender, positive bowel sounds Extremities: No edema Skin: No rashes or bruises Musculoskeletal: No joints swellings or inflammation Neurology: Awake, alert, oriented ?3, No focal motor or sensory deficits Psych: Normal mood and affect Results - Nephrology Labs 09/06/24 06:14 09/06/24 06:14 Labs: 09/05/24 09/05/24 09/06/24 17:56 18:19 06:14 BUN 40 H 45 H Creatinine 2.48 H 2.73 H Phosphorus 5.4 H Albumin 3.3 L 3.7 Urine Color Dark-yellow A Urine Appearance Cloudy A Urine pH 6.0 Ur Specific [place] 1.007 Urine Protein 70 H Urine Glucose (UA) 300 H Urine Ketones Negative Urine Occult Blood 1+ H Urine Nitrite Positive H Ur Leukocyte Esterase 4+ H Urine RBC 3-4 Urine WBC Innumerable H Urine Bacteria 4+ H Radiology Impressions Impressions - last 24 hours: Any impression(s) listed above is documentation that was entered by the reading physician into a diagnostic report(s) for Aislinn Wheeler. I have reviewed the report(s) and am incorporating any findings in the treatment plan of this patient where applicable. A&P - Nephrology Assessment/Plan (1) ANATOLIY (acute kidney injury): Assessment/Problem Details: She had elevated creatinine higher than the baseline with evidence of bilateral hydronephrosis and hydroureter on the CT scan of the abdomen that was done at [facility] on 05/05. (2) Uropathy, obstructive: Assessment/Problem Details: Patient has evidence of obstructive uropathy on the CT scan of the abdomen as stated above resultedin ANATOLIY, hyperkalemia and metabolic acidosis (3) Hyperkalemia: Assessment/Problem Details: She has progressive hyperkalemia related to ANATOLIY and urine obstruction (4) History of neurogenic bladder: Assessment/Problem Details: Patient with history of neurogenic bladder, she used to self cath herself before. 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 (6) Diabetic nephropathy associated with type 2 diabetes mellitus: Assessment/Problem Details: Patient has longstanding history of diabetes that has been out of control with hemoglobin A1c between 11 and 12% on insulin. (7) Hypertensive nephropathy: Assessment/Problem Details: Blood pressure was elevated on admission more than 200. Plan * Patient really had urgent hyperkalemia treatment in the ER including insulin and Lokelma. * Considering the acidosis, patient was started on dextrose with 150 mEq sodium bicarb and thumb 1 L. Will start sodium bicarbonate tablets 650 mg 3 times daily after she is done with IV fluid. * Will stop amlodipine and treat hypertension with furosemide 40 mg p.o. twice a day as it will improve acidosis and hyperkalemia. Amlodipine can be restarted later on if blood pressure continues to be elevated on furosemide. Ideally the patient should be on TIMBO inhibitors or ARBs once potassium isback to baseline. * Insert Valerio catheter at the patient has evidence of bilateral hydronephrosis. * Agree with ceftriaxone pending the result of urine culture and blood culture. * Monitor daily intake and output urine hospital stay. Valerio catheter can be removed at the time of discharge after improvement of AKIand hyperkalemia andthe patient should continue self cath as outpatient. Patient need to follow-up with urology as outpatient for cytometry and decision about long-term self cath. I appreciate this consultation and will be happy to follow the patient with you during hospital stay. This document was dictated utilizing computerized voice recognition technology. Errors in grammar, spelling, and or syntax may be noted. The creator of this document does not proofread for this. Plan of care was discussed with Dr. Tai Documented By: Akin Dougherty MD 09/06/24 1056 Signed By: 09/06/24 1116 [facility]01-17-2025 History and physical note Author Alejandro Vallejo [facility] Note Date/Time September 06, 2024 1 2:23am [facility] [address] [place] [address] Hospitalist H&P Signed Patient: Aislinn Wheeler MR#: [id number] : 1960 Acct:[id number] Age/Sex: 64 / F Adm Date: 5 Loc: Room: [address] [place] [address] Type: ADM IN Attending Dr: Alejandro Vallejo MD Copies to: MD Agusto Pabon NP-C~ HPI DATE OF EXAMINATION: 09/06/24 CHIEF COMPLAINT: Abnormal labs HISTORY OF PRESENT ILLNESS: Ms. 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 She had a routine appointment yesterday and was asked to get admitted in the hospital for abnormal labs. She went to [facility] was treated for urinary tract infection and hypokalemia. She was dischargedtoday and checked with her rail car repairman who recommended her to come to this hospital. In the ED her blood pressure was 220s of systolic lab work shows sodium of 134 and potassium of 5.7 and creatinine of 2.48 with glucose of 296 urinalysis suggestive of UTI urine culture pending patient got hyperkalemia cocktail in the ED. And a dose of ceftriaxone Review of Systems Review of Systems All other systems reviewed & are negative unless noted below or in HPI [facility] Medical History (Updated 09/05/24 @ 20:43 by Yessica Barros APRN) Hypertension CKD (chronic kidney disease) Restless leg Fibromyalgia Rheumatoid arthritis Lupus Diabetes Family History Brother Heart disease Legacy FamHx Relation: Brother(s) Hypertension Legacy FamHx Relation: Brother(s) Father Heart disease Diabetes Hypertension Cancer Legacy FamHx Problem: Diagnosed with Cancer Mother Heart disease History of stroke Legacy FamHx Problem: Diagnosed with Stroke Son Heart disease Sister Hypertension Diabetes Heart disease Social History Smoking Status: Never smoker Substance Use Type: None Meds Medications and Allergies Allergies latex Allergy (Unknown, Verified 09/05/24 17:17) Unresponsive Home Medications calcitriol 0.25 mcg capsule 0.25 mcg PO 3XW #30 caps 06/05/24 [Rx Confirmed 09/04/24] cetirizine 10 mg tablet 10 mg PO DAILY PRN 06/05/24 [History Confirmed 09/04/24] ferrous sulfate 325 mg (65 mg iron) tablet 325 mg PO DAILY 06/05/24 [History Confirmed 09/04/24] ondansetron 4 mg disintegrating tablet 4 mg PO Q8HR PRN 06/05/24 [History Confirmed 09/04/24] amlodipine 5 mg tablet 5 mg PO ONCE 09/04/24 [History Confirmed 09/04/24] fluticasone propionate 50 mcg/actuation nasal spray,suspension intranasal PRN 09/04/24 [History Confirmed 09/04/24] hydrocodone 7.5 mg-acetaminophen 325 mg tablet 1 tab PO Q8HR 09/04/24 [History Confirmed 09/04/24] metoprolol succinate 50 mg tablet,extended release 24 hr 50 mg PO 09/04/24 [History Confirmed 09/04/24] pregabalin 150 mg capsule 150 mg PO Q8HR 09/04/24 [History Confirmed 09/04/24] Exam Physical Exam Vital Signs: Temp Pulse Resp BP Pulse Ox O2 Del Method 98.7 F 77 16 173/79 H 97 Room Air 09/05/24 17:17 09/05/24 23:17 09/05/24 23:17 09/05/24 23:17 09/05/24 23:17 09/05/24 23:17 Narrative: General: Awake alert, no acute distress HEENT: head atraumatic, normocephalic, moist mucous membranes Neck: supple no masses, no lymphadenopathy CVS: regular rate and rhythm, no murmurs or gallops Respiratory: clear to auscultation bilaterally, no wheezing or crackles, symmetric expansion GI: soft, nondistended, nontender, positive bowel sounds with no organomegaly Extremity: moves all extremities, no restrictions of movements, no calf tenderness Neuro: AOx3, CN II-VII intact. Moves all extremities in all planes of motion. Skin: intact no rashes or lesions Results - Hospitalist H&P Lab Results Labs: Laboratory Last Values Corrected WBC 8.4 X10E3/uL (3.8-11.6) 09/05/24 17:56 Uncorrected WBC Count 8.4 x10E3/uL (3.8-11.6) 09/05/24 17:56 RBC 3.81 x10E6/uL (3.60-5.00) 09/05/24 17:56 Hgb 10.0 g/dL (11.8-15.4) L 09/05/24 17:56 Hct 30.3 % (34.0-46.4) L 09/05/24 17:56 MCV 79.6 fl (80-100) L 09/05/24 17:56 MCH 26.2 pg (24.7-34.3) 09/05/24 17:56 MCHC 32.9 g/dL (32.0-35.0) 09/05/24 17:56 RDW 14.4 % (11.9-15.3) 09/05/24 17:56 Plt Count 254 x10E3/uL (150-450) 09/05/24 17:56 MPV 9.1 fl (6.3-10.7) 09/05/24 17:56 Neut % (Auto) 65.6 % (.) 09/05/24 17:56 Lymph % (Auto) 25.0 % (.) 09/05/24 17:56 Dewey % (Auto) 5.8 % (.) 09/05/24 17:56 Eos % (Auto) 2.2 % (.) 09/05/24 17:56 Baso % (Auto) 1.4 % (.) 09/05/24 17:56 Nucleat RBC Rel Count 0.1 /100 WBC (0-0.5) 09/05/24 17:56 Neut # (Auto) 5.5 x10E3/uL (1.8-7.7) 09/05/24 17:56 Lymph # (Auto) 2.1 x10E3/uL (1.00-4.8) 09/05/24 17:56 Dewey # (Auto) 0.5 x10E3/uL (0.0-0.8) 09/05/24 17:56 Eos # (Auto) 0.2 x10E3/uL (0.0-0.45) 09/05/24 17:56 Baso # (Auto) 0.1 x10E3/uL (0.0-0.2) 09/05/24 17:56 Monocyte Dist Width 17.62 % (0.00-20.00) 09/05/24 17:56 PHA Creatinine Clear 18.03 09/05/24 17:56 Sodium 134 mmol/L (136-145) L 09/05/24 17:56 Potassium 5.7 mmol/L (3.5-5.1) H 09/05/24 17:56 Chloride 109 mmol/L (98-107) H 09/05/24 17:56 Carbon Dioxide 18.7 mmol/L (21.0-31.0) L 09/05/24 17:56 Anion Gap 12.0 mEq/L (6.0-15.0) 09/05/24 17:56 BUN 40 mg/dL (7-25) H 09/05/24 17:56 Creatinine 2.48 mg/dL (0.60-1.20) H 09/05/24 17:56 Est GFR (CKD-EPI) 20.892 mL/Min 09/05/24 17:56 Glucose 296 mg/dL (70-100) H 09/05/24 17:56 POC Glucose 124 mg/dl 09/05/24 22:51 Calcium 8.4 mg/dL (8.6-10.3) L 09/05/24 17:56 Total Bilirubin 0.2 mg/dl (0.3-1.0) L 09/05/24 17:56 AST 14 U/L (13-39) 09/05/24 17:56 ALT 10 U/L (7-52) 09/05/24 17:56 Alkaline Phosphatase 84 U/L (34-104) 09/05/24 17:56 Total Protein 7.6 gm/dL (6.4-8.9) 09/05/24 17:56 Albumin 3.3 gm/dL (3.5-5.7) L 09/05/24 17:56 Globulin 4.3 gm/dL 09/05/24 17:56 Albumin/Globulin Ratio 0.8 09/05/24 17:56 Urine Color Dark-yellow (Yellow) A 09/05/24 18:19 Urine Appearance Cloudy (Clear) A 09/05/24 18:19 Urine pH 6.0 (5.0-9.0) 09/05/24 18:19 Ur Specific [place] 1.007 (1.001-1.030) 09/05/24 18:19 Urine Protein 70 mg/dL (Negative) H 09/05/24 18:19 Urine Glucose (UA) 300 mg/dL (Normal) H 09/05/24 18:19 Urine Ketones Negative (Negative) 09/05/24 18:19 Urine Occult Blood 1+ (Negative) H 09/05/24 18:19 Urine Nitrite Positive (Negative) H 09/05/24 18:19 Urine Bilirubin Negative (Negative) 09/05/24 18:19 Urine Urobilinogen Normal mg/dL (Normal) 09/05/24 18:19 Ur Leukocyte Esterase 4+ (Negative) H 09/05/24 18:19 Urine RBC 3-4 /HPF (0-4) 09/05/24 18:19 Urine WBC Innumerable /HPF (0-4) H 09/05/24 18:19 Urine WBC Clumps Many /LPF (None Seen) H 09/05/24 18:19 Ur Squamous Epith Cells 1-2 /HPF (0-2) 09/05/24 18:19 Urine Bacteria 4+ /HPF (None Seen) H 09/05/24 18:19 Hyaline Casts 0-8 /LPF (0-8) 09/05/24 18:19 Urine Mucus Rare /LPF 09/05/24 18:19 Assessment & Plan Assessment/Plan (1) Urinary retention: (2) ANATOLIY (acute kidney injury): (3) Hyperkalemia: (4) History of neurogenic bladder: (5) Vitamin D deficiency: (6) Iron deficiency anemia: Plan Ms. 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 She went to [facility] where she was treated for urinary tract infection and hypokalemia. She was discharged today and checked with her rail car repairman who recommended her to come to this hospital. In the ED her blood pressure was 220sof systolic lab work shows sodium of 134 and potassium of 5.7 and creatinine of 2.48 with glucose of 296 urinalysis suggestive of UTI urine culture pending patient got hyperkalemia cocktail in the ED. And a dose of ceftriaxone. Valerio was also placed in the ED for urine retention. Plan: -Admit in the floors -Follow-up morning labs -Continue on ceftriaxone and follow urine culture -Continue POA medication-amlodipine, calcitriol, cetirizine, iron tablets, fluticasone nasal spray, metoprolol, pregabalin -Started on sliding scale of 1 for history of diabetes -Knitting Demonstrator consulted -May consider urology consult for urine retention. -Renal diet Full code DVT prophylaxis with Lovenox IP vs OBS Justification Based on differential dx, clinical care plan, and risk of adverse events, if untreated, in my clinical judgement this patient requires an acute care setting as: INPATIENT because of an expectation of an over 2 midnight stay. Estimated length of stay (# of days): 3 Documented By: Alejandro Vallejo MD 09/06/24 0013 Signed By: <Electronically signed by Alejandro Vallejo MD> 09/06/24 002 [facility] Work Phone: 1(347) 214-497201-17-2025 [place] [address] Hospitalist H&P Signed Patient: Aislinn Wheeler MR#: [id number] : 1960 Acct:[id number] Age/Sex: 64 / F Adm Date: 5 Loc: Room: [address] [place] [address] Type: ADM IN Attending Dr: Alejandro Vallejo MD Copies to: MD Agusto Pabon, CORN CUTTER OPERATOR-C~ HPI DATE OF EXAMINATION: 09/06/24 CHIEF COMPLAINT: Abnormal labs HISTORY OF PRESENT ILLNESS: Ms. 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 She had a routine appointment yesterday and was asked to get admitted in the hospital for abnormal labs. [facility] was treated for urinary tract infection and hypokalemia. She was dischargedtoday and checked with her rail car repairman who recommended her to come to this hospital. In the ED her blood pressure was 220s of systolic lab work shows sodium of 134 and potassium of 5.7 andcreatinine of 2.48 with glucose of 296 urinalysis suggestive of UTI urine culture pending patient got hyperkalemia cocktail in the ED. And a dose of ceftriaxone Review of Systems Review of Systems All other systems reviewed & are negative unless noted below or in HPI [facility] Medical History (Updated 09/05/24 @ 20:43 by Yessica Barros APRN) Hypertension CKD (chronic kidney disease) Restless leg Fibromyalgia Rheumatoid arthritis Lupus Diabetes Family History Brother Heart disease Legacy FamHx Relation: Brother(s) Hypertension Legacy FamHx Relation: Brother(s) Father Heart disease Diabetes Hypertension Cancer Legacy FamHx Problem: Diagnosed with Cancer Mother Heart disease History of stroke Legacy FamHx Problem: Diagnosed with Stroke Son Heart disease Sister Hypertension Diabetes Heart disease Social History Smoking Status: Never smoker Substance Use Type: None Meds Medications and Allergies Allergies latex Allergy (Unknown, Verified 09/05/24 17:17) Unresponsive Home Medications calcitriol 0.25 mcg capsule 0.25 mcg PO 3XW #30 caps 06/05/24 [Rx Confirmed 09/04/24] cetirizine 10 mg tablet 10 mg PO DAILY PRN 06/05/24 [History Confirmed 09/04/24] ferrous sulfate 325 mg (65 mg iron) tablet 325 mg PO DAILY 06/05/24 [History Confirmed 09/04/24] ondansetron 4 mg disintegrating tablet 4 mg PO Q8HR PRN 06/05/24 [History Confirmed 09/04/24] amlodipine 5 mg tablet 5 mg PO ONCE 09/04/24 [History Confirmed 09/04/24] fluticasone propionate 50 mcg/actuation nasal spray,suspension intranasal PRN 09/04/24 [History Confirmed 09/04/24] hydrocodone 7.5 mg-acetaminophen 325 mg tablet 1 tab PO Q8HR 09/04/24 [History Confirmed 09/04/24] metoprolol succinate 50 mg tablet,extended release 24 hr 50 mg PO 09/04/24 [History Confirmed 09/04/24] pregabalin 150 mg capsule 150 mg PO Q8HR 09/04/24 [History Confirmed 09/04/24] Exam Physical Exam Vital Signs: Temp Pulse Resp BP Pulse Ox O2 Del Method 98.7 F 77 16 173/79 H 97 Room Air 09/05/24 17:17 09/05/24 23:17 09/05/24 23:17 09/05/24 23:17 09/05/24 23:17 09/05/24 23:17 Narrative: General: Awake alert, no acute distress HEENT: head atraumatic, normocephalic, moist mucous membranes Neck: supple no masses, no lymphadenopathy CVS: regular rate and rhythm, no murmurs or gallops Respiratory: clear to auscultation bilaterally, no wheezing or crackles, symmetric expansion GI: soft, nondistended, nontender, positive bowel sounds with no organomegaly Extremity: moves all extremities, no restrictions of movements, no calf tenderness Neuro: AOx3, CN II-VII intact. Moves all extremities in all planes of motion. Skin: intact no rashes or lesions Results - Hospitalist H&P Lab Results Labs: Laboratory Last Values Corrected WBC 8.4 X10E3/uL (3.8-11.6) 09/05/24 17:56 Uncorrected WBC Count 8.4 x10E3/uL (3.8-11.6) 09/05/24 17:56 RBC 3.81 x10E6/uL (3.60-5.00) 09/05/24 17:56 Hgb 10.0 g/dL (11.8-15.4) L 09/05/24 17:56 Hct 30.3 % (34.0-46.4) L 09/05/24 17:56 MCV 79.6 fl (80-100) L 09/05/24 17:56 MCH 26.2 pg (24.7-34.3) 09/05/24 17:56 MCHC 32.9 g/dL (32.0-35.0) 09/05/24 17:56 RDW 14.4 % (11.9-15.3) 09/05/24 17:56 Plt Count 254 x10E3/uL (150-450) 09/05/24 17:56 MPV 9.1 fl (6.3-10.7) 09/05/24 17:56 Neut % (Auto) 65.6 % (.) 09/05/24 17:56 Lymph % (Auto) 25.0 % (.) 09/05/24 17:56 Dewey % (Auto) 5.8 % (.) 09/05/24 17:56 Eos % (Auto) 2.2 % (.) 09/05/24 17:56 Baso % (Auto) 1.4 % (.) 09/05/24 17:56 Nucleat RBC Rel Count 0.1 /100 WBC (0-0.5) 09/05/24 17:56 Neut # (Auto) 5.5 x10E3/uL (1.8-7.7) 09/05/24 17:56 Lymph # (Auto) 2.1 x10E3/uL (1.00-4.8) 09/05/24 17:56 Dewey # (Auto) 0.5 x10E3/uL (0.0-0.8) 09/05/24 17:56 Eos # (Auto) 0.2 x10E3/uL (0.0-0.45) 09/05/24 17:56 Baso # (Auto) 0.1 x10E3/uL (0.0-0.2) 09/05/24 17:56 Monocyte Dist Width 17.62 % (0.00-20.00) 09/05/24 17:56 PHA Creatinine Clear 18.03 09/05/24 17:56 Sodium 134 mmol/L (136-145) L 09/05/24 17:56 Potassium 5.7 mmol/L (3.5-5.1) H 09/05/24 17:56 Chloride 109 mmol/L (98-107) H 09/05/24 17:56 Carbon Dioxide 18.7 mmol/L (21.0-31.0) L 09/05/24 17:56 Anion Gap 12.0 mEq/L (6.0-15.0) 09/05/24 17:56 BUN 40 mg/dL (7-25) H 09/05/24 17:56 Creatinine 2.48 mg/dL (0.60-1.20) H 09/05/24 17:56 Est GFR (CKD-EPI) 20.892 mL/Min 09/05/24 17:56 Glucose 296 mg/dL (70-100) H 09/05/24 17:56 POC Glucose 124 mg/dl 09/05/24 22:51 Calcium 8.4 mg/dL (8.6-10.3) L 09/05/24 17:56 Total Bilirubin 0.2 mg/dl (0.3-1.0) L 09/05/24 17:56 AST 14 U/L (13-39) 09/05/24 17:56 ALT 10 U/L (7-52) 09/05/24 17:56 Alkaline Phosphatase 84 U/L (34-104) 09/05/24 17:56 Total Protein 7.6 gm/dL (6.4-8.9) 09/05/24 17:56 Albumin 3.3 gm/dL (3.5-5.7) L 09/05/24 17:56 Globulin 4.3 gm/dL 09/05/24 17:56 Albumin/Globulin Ratio 0.8 09/05/24 17:56 Urine Color Dark-yellow (Yellow) A 09/05/24 18:19 Urine Appearance Cloudy (Clear) A 09/05/24 18:19 Urine pH 6.0 (5.0-9.0) 09/05/24 18:19 Ur Specific [place] 1.007 (1.001-1.030) 09/05/24 18:19 Urine Protein 70 mg/dL (Negative) H 09/05/24 18:19 Urine Glucose (UA) 300 mg/dL (Normal) H 09/05/24 18:19 Urine Ketones Negative (Negative) 09/05/24 18:19 Urine Occult Blood 1+ (Negative) H 09/05/24 18:19 Urine Nitrite Positive (Negative) H 09/05/24 18:19 Urine Bilirubin Negative (Negative) 09/05/24 18:19 Urine Urobilinogen Normal mg/dL (Normal) 09/05/24 18:19 Ur Leukocyte Esterase 4+ (Negative) H 09/05/24 18:19 Urine RBC 3-4 /HPF (0-4) 09/05/24 18:19 Urine WBC Innumerable /HPF (0-4) H 09/05/24 18:19 Urine WBC Clumps Many /LPF (None Seen) H 09/05/24 18:19 Ur Squamous Epith Cells 1-2 /HPF (0-2) 09/05/24 18:19 Urine Bacteria 4+ /HPF (None Seen) H 09/05/24 18:19 Hyaline Casts 0-8 /LPF (0-8) 09/05/24 18:19 Urine Mucus Rare /LPF 09/05/24 18:19 Assessment & Plan Assessment/Plan (1) Urinary retention: (2) ANATOLIY (acute kidney injury): (3) Hyperkalemia: (4) History of neurogenic bladder: (5) Vitamin D deficiency: (6) Iron deficiency anemia: Plan Ms. 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 She went to [facility] where she was treated for urinary tract infection and hypokalemia. She was discharged today and checked with her rail car repairman who recommended her to come to this hospital. In the ED her blood pressure was 220sof systolic lab work shows sodium of 134 and potassium of 5.7 and creatinine of 2.48 with glucose of 296 urinalysis suggestive of UTI urine culture pending patient got hyperkalemia cocktail in the ED. And a dose of ceftriaxone. Valerio was also placed in the ED for urine retention. Plan: -Admit in the floors -Follow-up morning labs -Continue on ceftriaxone and follow urine culture -Continue POA medication-amlodipine, calcitriol, cetirizine, iron tablets, fluticasone nasal spray,metoprolol, pregabalin -Started on sliding scale of 1 for history of diabetes -Knitting Demonstrator consulted -May consider urology consult for urine retention. -Renal diet Full code DVT prophylaxis with Lovenox IP vs OBS Justification Based on differential dx, clinical care plan, and risk of adverse events, if untreated, in my clinical judgement this patient requires an acute care setting as: INPATIENT because of an expectation ofan over 2 midnight stay. Estimated length of stay (# of days): 3 Documented By: Alejandro Vallejo MD 09/06/24 0013 Signed By: 09/06/24 0023 [facility]01-15-2025 Evaluation note* Diagnosis Onset Date Resolution Status Admit Date Anemia of renal disease acute J anuary 2024 11:12am B12 deficiency acute September 042024 11:12am CKD stage 3b, GFR 30-44 ml/min acute September 04, 2024 11:12am 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 acute [facility] 2024 11:12am Hyperkalemia acute August 11:12am Hyperparathyroidism acute 2024 11:12am Hypertensive nephropathy acute September 04, 2024 11:12am Hypomagnesemia acute September 042024 11:12am Iron deficiency anemia acute [facility] 2024 11:12am Neurogenic bladder acute Auguar y 2024 11:12am Renal cyst acute September 04, 2024 11:12am Vitamin D deficiency acute 2024 11:12am ANATOLIY (acute kidney injury) acute September 05, 2024 9:58pm History of neurogenic bladder acute September 05, 2024 9:58pm Hyperkalemia acute August 9:58pm Iron deficiency anemia acute [facility] 2024 9:58pm Urinary retention acute September 05, 2024 9:58pm Vitamin D deficiency acute [email or web address] 9:58pm Chronic kidney disease removed [facility] 2024 9:58pm [facility] Work Phone: 1(589) 190-100101-15-2025 Evaluation note* Diagnosis Onset Date Resolution Status Admit Date Anemia of renal disease acute J anuary 2024 11:12am B12 deficiency acute September 042024 11:12am CKD stage 3b, GFR 30-44 ml/min acute September 04, 2024 11:12am 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 [facility] 11:12am Hyperkalemia acute August 11:12am Hyperparathyroidism acute 2024 11:12am Hypertensive nephropathy acute September 04, 2024 11:12am Hypomagnesemia acute September 042024 11:12am Iron deficiency anemia [facility] 11:12am Neurogenic bladder acute 2024 11:12am Renal cyst acute September 04, 2024 11:12am Vitamin D deficiency acute [email or web address] 11:12am ANATOLIY (acute kidney injury) acute September 05, 2024 9:58pm 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 acute [facility] 2024 9:58pm History of neurogenic bladder acute September 05, 2024 9:58pm Hyperkalemia acute August 9:58pm Hypertensive nephropathy acute September 05, 2024 9:58pm Iron deficiency anemia acute 2024 9:58pm Metabolic acidosis acute 2024 9:58pm Urinary retention acute September 05, 2024 9:58pm Uropathy, obstructive acute Aug uary 2024 9:58pm Vitamin D deficiency acute 2024 9:58pm Chronic kidney disease removed 2024 9:58pm [facility] Work Phone: 1(897) 781-663001-15-2025 Evaluation note* Diagnosis Onset Date Resolution Status Admit Date Anemia of renal disease acute J anuary 2024 11:12am B12 deficiency acute September 042024 11:12am CKD stage 3b, GFR 30-44 ml/min acute September 04, 2024 11:12am Hyperkalemia acute August 11:12am Hyperparathyroidism acute 2025 11:12am Hypomagnesemia acute September 042024 11:12am Neurogenic bladder acute r y 2024 11:12am Renal cyst acute September 04, 2024 11:12am 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 resolved [facility] 2024 11:12am Hypertensive nephropathy resolved September 04, 2024 11:12am Iron deficiency anemia resolved [facility] 2024 11:12am Vitamin D deficiency resolved [facility] 2024 11:12am ANATOLIY (acute kidney injury) resolved September 05, 2024 9:58pm 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 resolved [facility] 2024 9:58pm History of neurogenic bladder resolv ed September 05, 2024 9:58pm Hyperkalemia resolved August 9:58pm Hypertensive nephropathy resolved September 05, 2024 9:58pm Iron deficiency anemia resolved [facility] 2024 9:58pm Metabolic acidosis resolved 2024 9:58pm Urinary retention resolved September 05, 2024 9:58pm Uropathy, obstructive resolved Aug 9:58pm Vitamin D deficiency resolved 2024 9:58pm Chronic kidney disease removed [facility] 2024 9:58pm Acute electrocardiogram changes acut e November 23, 2024 6:09pm Anemia of renal disease acute A pril 2024 6:09pm Chest pain acute November 23 6:09pm CKD stage 3b, GFR 30-44 ml/min acute November 23, 2024 6:09pm Hydroureteronephrosis acute Apr 2024 6:09pm Hyperkalemia acute November 23, 2 025 6:09pm Hypertensive emergency acute Ap ril 2024 6:09pm Neurogenic bladder acute November 23, 2024 6:09pm Overactive bladder acute November 23, 2024 6:09pm [facility] Work Phone: 1(845) 163-714401-15-2025 Evaluation note* Diagnosis Onset Date Resolution Status Admit Date Anemia of renal disease acute J anuary 2024 11:12am B12 deficiency acute September 042024 11:12am CKD stage 3b, GFR 30-44 ml/min acute September 04, 2024 11:12am Hyperkalemia acute August 11:12am Hyperparathyroidism acute ry 2024 11:12am Hypomagnesemia acute September 042024 11:12am Neurogenic bladder acute Januar y 2024 11:12am Renal cyst acute September 04, 2024 11:12am 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 resolved [facility] 2024 11:12am Hypertensive nephropathy resolved September 04, 2024 11:12am Iron deficiency anemia resolved [facility] 2024 11:12am Vitamin D deficiency resolved [facility] 2024 11:12am Metabolic acidosis chronic 2024 9:58pm ANATOLIY (acute kidney injury) resolved September 05, 2024 9:58pm 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 resolved [facility] 2024 9:58pm History of neurogenic bladder resolv ed September 05, 2024 9:58pm Hyperkalemia resolved August 9:58pm Hypertensive nephropathy resolved September 05, 2024 9:58pm Iron deficiency anemia resolved [facility] 2024 9:58pm Urinary retention resolved September 05, 2024 9:58pm Uropathy, obstructive resolved [facility] 2024 9:58pm Vitamin D deficiency resolved [facility]2024 9:58pm Chronic kidney disease removed [facility] 2024 9:58pm Acute electrocardiogram changes acut e November 23, 2024 6:09pm Acute kidney injury superimp osed on CKD acute November 23, 2024 6:09pm Anemia of renal disease acute A pril 2024 6:09pm Cellulitis of right foot acute November 23, 2024 6:09pm Chest pain acute November 23 6:09pm CKD stage 3b, GFR 30-44 ml/min acute November 23, 2024 6:09pm Diabetes acute November 23 6:09pm Diabetes mellitus due to underlying condition with diabetic polyneuropathy, acute November 23, 2024 6:09pm Foreign body in right foot acute November 23, 2024 6:09pm Hydroureteronephrosis acute Apr 2024 6:09pm Hyperkalemia acute November 23, 2 025 6:09pm Hypertension acute November 23, 2 025 6:09pm Hypertensive emergency acute Ap 2024 6:09pm Neurogenic bladder acute November 23, 2024 6:09pm Overactive bladder acute November 23, 2024 6:09pm [facility] Work Phone: 1(287) 327-830101-07-2025 History of Present illness Narrative* Agusto Olmstead NP - 08/27/2024 6:39 PM ESTAssociated Problem(s): Neurogenic bladder Refer to [facility] for second opinion about possible surgical options * Agusto Olmstead NP - 08/27/2024 6:33 PM ESTAssociated Problem(s): Continuous leakage of urine Would like a second opinion about need for sling etc * Agusto Olmstead NP - 08/27/2024 6:30 PM ESTAssociated Problem(s): Other chest pain Had stress test and ECHO in 2022 at [facility], no acute ischemic findings Strong risk factors for CAD [facility] [place], has seen Danial in the past * Agusto Olmstead NP - 08/27/2024 3:00 PM ESTAssociated Problem(s): Type 2 diabetes mellitus with hyperglycemia, with long-term current use of insulin ([facility]) Check blood sugars daily, notify if <70 [...] and bolus insulin, A1c: 10.1% on 08/08/24 * Agusto Olmstead NP - 08/27/2024 2:58 PM ESTAssociated Problem(s): Chronic kidney disease, stage 4 (severe) ([facility]) Long standing uncontrolled HTN and DM Multiple attempts to get pt to specialists, does not follow through She is established with local Knitting Demonstrator Continue to follow Goal: bp and DM control * Agusto Olmstead NP - 08/27/2024 2:57 PM ESTAssociated Problem(s): Essential (primary) hypertension ([facility]) Please check blood pressure daily and record DASH diet Limit caffeine Take medication as directed Contact office if chest pain, pressure, dizziness, shortness of breath, swelling legs Recommend slow position changes Current meds: only metoprolol Will restart amlodipine at 5mg, looks as though she has not had this filled in some time and likelyrelated to her elevated blood pressures, she will fu in office in 2 weeks for this * Agusto Olmstead NP - 08/27/2024 2:57 PM ESTAssociated Problem(s): Type 2 diabetes mellitus with diabetic neuropathy, with long-term current use of insulin ([facility]) Reports increase in neuropathy symptoms, is on lyrica at 150mg TID, also takes percocet for RSD At last appt started addition of duloxetine at 20mg daily * PADMAJA SULLIVAN - 08/27/2024 2:20 PM EST [employer] on 09/04 Pt was told she needs to be scheduled with a manager study she [facility] before. Pt would also like another opinion with a urologist [facility] [place] Blurry vision, dizziness, feel bottle and glass inspector the face * Agusto Olmstead NP - 08/27/2024 2:20 PM EST Images from the original note were not included. Aislinn Wheeler is a 64 y.o. female presents with chief complaint of Diabetes and Hypertension HPI: Here for fu appt: since last appt was sent to [facility] d/t elevated potassium/kidney function, as well aschest pain and high blood pressure. She was admitted to [facility] a few weeks ago d/t elevated [...] DM and BP control and how this effectsthe kidneys. She reports some issues with memory [...] test strip 4 times daily use HYDROcodone-acetaminophen ([place]) 7.5-325 MG tablet 1 tablet, 3 times [...] Diagnosis Date Amputation of left great toe ([facility]) Cervical cancer ([facility]) 10/11/2023 had Hysterectomy Charcot's joint of foot, left 10/11/2023 Chronic kidney disease, stage III (moderate) ([facility]) ([facility]) 10/11/2023 Fatty liver 10/11/2023 History of hysterectomy [...] of nail of digit of hand Osteoporosis ([facility]) 10/11/2023 Post-menopausal 10/11/2023 Rheumatoid arthritis ([facility]) 10/11/2023 RSD (reflex sympathetic dystrophy) 10/11/2023 Type 2 diabetes mellitus with diabetic neuropathy, 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 ([facility]) 10/11/2023 Visual impairment 10/11/2023 HAD BILATERAL CATARCT [...] hyperglycemia, with long-term current use of insulin ([facility]) Check blood sugars daily, notify if <70 [...] Ambulatory referral to Urogynecology Essential (primary) hypertension ([facility]) Please check blood pressure daily and record DASH diet Limit caffeine Take medication as directed Contact office if chest pain, pressure, dizziness, shortness of breath, swelling legs Recommend slow position changes Current meds: only metoprolol Will restart amlodipine at 5mg, looks as though she has not had this filled in some time and likelyrelated to her elevated blood pressures, she will fu in office in 2 weeks for this Relevant Medications amLODIPine (Norvasc) 5 MG tablet Other Relevant Orders Ambulatory referral to Cardiology Type 2 diabetes mellitus with diabetic neuropathy, with long-term current use of insulin ([facility]) - Primary Reports increase in neuropathy symptoms, is on lyrica at 150mg TID, also takes percocet for RSD At last appt started addition of duloxetine at 20mg daily Relevant Orders Basic metabolic panel Continuous leakage of urine Would like a second opinion about need for sling etc Relevant Orders Ambulatory referral to Urogynecology Chronic kidney disease, stage 4 (severe) ([facility]) Long standing uncontrolled HTN and DM Multiple attempts to get pt to specialists, does not follow through She is established with local Knitting Demonstrator Continue to follow Goal: bp and DM control Other chest pain Had stress test and ECHO in 2022 at [facility], no acute ischemic findings Strong risk factors for CAD Will refer to [facility], in [place], has seen Danial in the past Relevant Orders Ambulatory referral to Cardiology Other Visit Diagnoses Type 2 diabetes mellitus with diabetic neuropathy, unspecified whether alf insulin use ([facility]) documented in this encounterSaint Francis Hospital & Health [id number] Instructions* Patient Instructions* Agusto Olmstead NP - 08/27/2024 2:20 PM EST Heart doctor: for chest pain, at [facility], they will call you Bladder/sling: urogynecologist, [facility] [place] they will call you, Blood pressure: keep taking metoprolol, add amlodipine at 5mg once day documented in this encounterSaint Francis Hospital & Health [id number] Miscellaneous Notes* Telephone Encounter - Asia Barreto RN - 08/22/2024 3:14 PM EST Last Office Visit: 07/03/2024 Next Office Visit: 10/09/2024 Last Urine Drug Screen: Lab Results Component Value Date BENZOSCRN Negative 08/09/2023 [facility] appropriate [facility] Telephone encounter Note* Telephone Encounter - Aisa Barreto RN - 08/22/2024 3:14 PM EST Last Office Visit: 07/03/2024 Next Office Visit: 10/09/2024 Last Urine Drug Screen: Lab Results Component Value Date BENZOSCRN Negative 08/09/2023 [facility] appropriate [facility]12-24-[facility] History of Present illness Narrative* Agusto Olmstead NP - 08/13/2024 6:02 AM EST Updating meds documented in this encounterSaint Francis Hospital & Health [id number] Telephone encounter Note* Telephone Encounter - Adama Velasco RN - 06/26/2024 9:54 AM EST Called and spoke to Aislinn Wheeler regarding [...] locally Cystatin C and CMP sent to [facility] ( ; fx [phone]) and asked her to go to lab [...] virtual. Can you let her know to getblood work and schedule her for a VV? ----- Message ----- From: Alicia Flores MA Sent: 06/20/2024 12:00 PM EDT To: Adama Velasco RN; Juanito Barnard MD Subject: Surgery Patient called states she wants to proceed with surgery Thanks [facility] Work Phone: 1(804) 136-806911-06-2024 Miscellaneous Notes* Telephone Encounter - Adama Velasco RN - 06/26/2024 9:54 AM EST Called and spoke to Aislinn Pulido Liam [...] locally Cystatin C and CMP sent to [facility] ( ; fx [phone]) and asked her to go to lab [...] virtual. Can you let her know to getblood work and schedule her for a VV? ----- Message ----- From: Alicia Flores MA Sent: 06/20/2024 12:00 PM EDT To: Adama Velasco RN; Juanito Barnard MD Subject: Surgery Patient called states she wants to proceed with surgery Thanks documented in this encounterPremier [facility]10-22-2024 History of Present illness Narrative* Agusto Olmstead NP - 06/11/2024 12:59 PM EDTAssociated Problem(s): Skin lesion of face Suspect to be AK Pt request referral to derm * Agusto Olmstead NP - 06/11/2024 12:58 PM EDTAssociated Problem(s): Malignant neoplasm of cervix uteri, unspecified (CMS/HCC) Had hyst * Agusto Olmstead NP - 06/11/2024 12:56 PM EDTAssociated Problem(s): Rheumatoid arthritis, unspecified (CMS/HCC) Does not follow with Rheumatology * Agusto Olmstead NP - 06/11/2024 12:55 PM EDTAssociated Problem(s): Type 2 diabetes mellitus with hyperglycemia, with long-term current use of insulin ([facility]) Will recheck A1c level Continue current insulin at this time Hx of non compliance with fu appts w specialist * Agusto Olmstead NP - 06/11/2024 12:54 PM EDTAssociated Problem(s): Chronic kidney disease, stage 3b (HCC) ([facility]) Has to get labs for nephrology and fu appt with them Discussed with pt the importance of adequte blood pressure and blood sugar control to help slow theprogression of CKD * Agusto Olmstead NP - 06/11/2024 12:54 PM EDTAssociated Problem(s): Continuous leakage of urine Continue with urology * Agusto Olmstead NP - 06/11/2024 12:53 PM EDTAssociated Problem(s): Primary hypertension ([facility]) Has not been taking both amlodipine and metoprolol We will start over with amlodipine at 10mg daily Fu in 2 weeks for blood pressure check Recheck in office 188/ * Agusto Olmstead NP - 06/11/2024 12:52 PM EDTAssociated Problem(s): RSD (reflex sympathetic dystrophy) Continue with pain mgmt * Agusto Olmstead NP - 06/11/2024 12:52 PM EDTAssociated Problem(s): Type 2 diabetes mellitus with diabetic neuropathy, unspecified whether alf insulin use ([facility]) Reports increase in neuropathy symptoms, is on lyrica at 150mg TID, also takes percocet for RSD Will trial addition of duloxetine at 20mg daily Fu in 4-6 weeks * PADMAJA SULLIVAN - 06/11/2024 11:30 AM EDT Pt has a spot on her left side of her face that has not gone away she has been putting creams and atb on it. Pt has had it for about 6 plus months. Pt would like to talk about her diabetes And concerned about her BP has been high and low * Agusto Olmstead NP - 06/11/2024 11:30 AM EDT Images from the original note [...] problems: does not always take meds. Hypertensive end- organ damage includes kidney disease and PVD. There is no history of CVA or heart failure. Identifiable causes of hypertension include chronic renal disease. Diabetes She presents for her follow-up diabetic visit. She has type 2 diabetes mellitus. Her disease coursehas been fluctuating. There are no hypoglycemic associated [...] is not being taken. She sees a area captain.Eye exam is not current. SUBJECTIVE: MEDICATIONS: Current [...] test strip 4 times daily use HYDROcodone-acetaminophen ([place]) 7.5-325 MG tablet 1 tablet, Oral, 3 [...] Diagnosis Date Amputation of left great toe ([facility]) Cervical cancer ([facility]) 10/11/2023 had Hysterectomy Charcot's joint of foot, left 10/11/2023 Chronic kidney disease, stage III (moderate) ([facility]) ([facility]) 10/11/2023 Fatty liver 10/11/2023 History of hysterectomy 10/11/2023 Cervical cancer Hyperkalemia Hyponatremia Leakage of urine from ureter Lupus ([facility]) Memory impairment of gradual onset MOCA: on [...] of nail of digit of hand Osteoporosis ([facility]) 10/11/2023 Post-menopausal 10/11/2023 Rheumatoid arthritis ([facility]) 10/11/2023 RSD (reflex sympathetic dystrophy) 10/11/2023 Type 2 diabetes mellitus with diabetic neuropathy, 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 ([facility]) 10/11/2023 Visual impairment 10/11/2023 HAD BILATERAL CATARCT [...] hyperglycemia, with long-term current use of insulin ([facility]) Will recheck A1c level Continue current insulin at this time Hx of non compliance with fu appts w specialist Relevant Orders Basic metabolic panel Hemoglobin A1c 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 ([facility]) IESHA (iron deficiency anemia) Primary hypertension ([facility]) Has not been taking both amlodipine and metoprolol We will start over with amlodipine at 10mg daily Fu in 2 weeks for blood pressure check Recheck in office / Relevant Medications amLODIPine (Norvasc) 10 MG tablet Type 2 diabetes mellitus with diabetic neuropathy, 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 ([facility]) Reports increase in neuropathy symptoms, is on lyrica at 150mg TID, also takes percocet for RSD Will trial addition of duloxetine at 20mg daily Fu in 4-6 weeks Relevant Medications DULoxetine (Cymbalta) [address] capsule RSD (reflex sympathetic dystrophy) Continue with pain mgmt Malignant neoplasm of cervix uteri, unspecified ([facility]) Rheumatoid arthritis, unspecified ([facility]) Does not follow with Rheumatology Continuous leakage of urine Continue with urology 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 Type 2 diabetes mellitus with diabetic chronic kidney disease ([facility]CC) Chronic kidney disease, stage 3b (HCC) ([facility]) Has to get labs for nephrology and fu appt with them Discussed with pt the importance of adequte blood pressure and blood sugar control to help slow theprogression of CKD Hyperparathyroidism, unspecified ([facility]) Other Visit Diagnoses Essential (primary) hypertension ([facility]CC) - Primary documented in this encounterSaint Francis Hospital & Health [id number] NoteReceived referral again with no C9 approval attached. Spoke with referring provider's office. They will send message to the referral's office to fax C9 approval. I provided my contact information and fax number.[facility]09-19-2024 NoteReviewed pt's referral. Pt is being referred for SCS trial consult with [facility], however, it states in the note that [...] Please do not schedule if pt calls back.[facility] 05-01-2024 History of Present illness Narrative* Juanito Barnard MD - 05/01/2024 10:00 AM EDT Images from the original note were not included. [facility] UROLOGY NEW PATIENT CLINIC NOTE SERVICE DATE: 05/01/2024 NAME: Aislinn Wheeler REFERRED BY: No referring provider defined for this encounter. Consultation requested by Dr. Espinosa for an opinion regarding urinary incontinence. My final recommendations will be communicated back to the requesting physician by way of shared Medical record orletter to requesting physician via US mail. CHIEF [...] leakage, has urgency every 30 minutes or soduring the daytime. On CIC once daily in [...] DM (A1c previously 16.5) x1.5-2 years - insulin- dependent. Now better controlled now 7.0. Blood sugars [...] long-term current use of insulin (HCC) - ICD9:250.00, 790.29, V58.67, ICD10: E11.65, Z79.4 4. Other [...] with aug, need for frequent cathing + irrigation(DIL is concerned about her memory and ability to manage this), channel complications, stones, etc SPT might not work but would be easily reversible She is concerned about cosmesis of conduit Would rec: -Cath q3-4h x1 week followed by repeat renal function panel -Virtual visit in 2 weeks -Daily miralax, PRN senna for chronic constipation Juanito Barnard MD Associate Staff [facility] [place] Department of Urology I spent a total of 30 minutes on the date of the service which included preparing to see the patient, [id number] patient care, completing clinical documentation, obtaining and/or reviewing separately obtained history, performing a medically appropriate examination, counseling and educating the pat ient/family/caregiver, and ordering medications, tests, or procedures. >50% of time was devoted to patient counseling. documented in this encounterPremier Health [facility]09-11-2024 NoteHNO ID: [id number] Author: JUANITO BARNARD MD Service: ? Author Type: Physician Type: Progress Notes Filed: 05/01/2024 12:12 Note Text: [facility] UROLOGY NEW PATIENT CLINIC NOTE SERVICE DATE: 05/01/2024 NAME: Aislinn Wheeler REFERRED BY: No referring provider defined for this encounter. Consultation requested by Dr. Espinosa for an opinion regarding urinary incontinence. My [...] stable Resp: normal e (more content not included)...[facility] 05-01-2024 NotePatient Outreach (UROLMN) AISLINN WHEELER ([id number]) 1960 F Date Time Provider Department 05/01/24 [...] for genitourinary condition [Z13.89] Order(s):URINALYSIS, REFLEX MICROSCOPIC [[id number]] Order #: [id number]. #:[id number] Prescriptions as of 05/06/2024 - metoprolol succinate [...] without hematuria [N39.*08/31/2023 09/04/2023 Encounter Status:Closed by [facility], PRODUSER on 05/06/24[facility] 04-16-2024 History of Present illness Narrative* Agusto Olmstead NP - 04/16/2024 4:31 PM EDTAssociated Problem(s): Rheumatoid arthritis, unspecified ([facility]) Does not follow with Rheumatology * Agusto Olmstead NP - 04/16/2024 4:31 PM EDTAssociated Problem(s): Type 2 diabetes mellitus with hyperglycemia, with long-term current use of insulin ([facility]) A1c is improving * Agusto Olmstead NP - 04/16/2024 4:31 PM EDTAssociated Problem(s): Type 2 diabetes mellitus with diabetic chronic kidney disease (HCC) ([facility]) A1c is coming down Cont current meds * Agusto Olmstead NP - 04/16/2024 4:30 PM EDTAssociated Problem(s): Malignant neoplasm of cervix uteri, unspecified (CMS/HCC) Had hyst * Agusto Olmstead NP - 04/16/2024 4:30 PM EDTAssociated Problem(s): Chronic kidney disease, stage 3b (HCC) (CMS/HCC) Will re refer to Nephrology * Agusto Olmstead NP - 04/16/2024 4:30 PM EDTAssociated Problem(s): Chronic cough Check xray Consider antihistamine and nasal steroids Will await the results * PADMAJA SULLIVAN - 04/16/2024 2:20 PM EDT Pt is having surgery on her bladder- [...] second hand smoke could have effect her. * Agusto Olmstead NP - 04/16/2024 2:20 PM EDT Images from the original note were not included. Aislinn Wheeler is a 63 y.o. female presents with chief complaint of No chief complaint on file. HPI: Cough This is a chronic problem. The current episode started more than 1 month ago. The problem has been unchanged. Episode frequency: daily. The cough is Non- productive. Associated symptoms include heartburn (occ). Pertinent negatives include no chest pain, chills, ear congestion, ear pain, eye redness,fever, headaches, hemoptysis, myalgias, nasal congestion, postnasal drip, [...] test strip 4 times daily use HYDROcodone-acetaminophen ([place]) 7.5-325 MG tablet 1 tablet, Oral, 3 [...] Diagnosis Date Amputation of left great toe ([facility]) Cervical cancer ([facility]) 10/11/2023 had Hysterectomy Charcot's joint of foot, left 10/11/2023 Chronic kidney disease, stage III (moderate) ([facility]) ([facility]) 10/11/2023 Fatty liver 10/11/2023 History of hysterectomy 10/11/2023 Cervical cancer Hyperkalemia Hyponatremia Leakage of urine from ureter Lupus ([facility]) Memory impairment of gradual onset MOCA: on [...] of nail of digit of hand Osteoporosis ([facility]) 10/11/2023 Post-menopausal 10/11/2023 Rheumatoid arthritis ([facility]) 10/11/2023 RSD (reflex sympathetic dystrophy) 10/11/2023 Type 2 diabetes mellitus with diabetic neuropathy, unspecified whether alf insulin use ([facility]) 10/11/2023 Visual impairment 10/11/2023 HAD BILATERAL CATARCT [...] hyperglycemia, with long-term current use of insulin ([facility]) A1c is improving Stage 3a chronic kidney disease (HCC) ([facility]/HCC) Relevant Orders Ambulatory referral to Nephrology Malignant neoplasm of cervix uteri, unspecified (CMS/HCC) Had hyst Rheumatoid arthritis, unspecified ([facility]) Does not follow with Rheumatology Type 2 diabetes mellitus with diabetic chronic kidney disease (HCC) ([facility]) A1c is coming down Cont current meds Chronic kidney disease, stage 3b (HCC) ([facility]) Will re refer to Nephrology Hyperparathyroidism, unspecified ([facility]) Relevant Orders Ambulatory referral to Nephrology Chronic cough - Primary Check xray Consider antihistamine and nasal steroids Will await the results Relevant Orders XR chest 2 views documented in this encounterSaint Francis Hospital & Health [id number] NoteHNO ID: [id number] Author: ?, ?, ? Service: ? Author Type: ? Type: Progress Notes Filed: 04/15/2024 07:29 Note Text: Incidental Lung Nodule Enrollment Outreach attempt: 3rd Attempt Outreach status: Complete Enrolled in Lung Nodule program: No Declined reason: Other Lung Nodule Program Location: [place] Two letter attempts, no response. Discharge letter sent.[facility]08-26-2024 History of Present illness Narrative* Chioma Durán - 04/15/2024 7:28 AM EDT Incidental Lung Nodule Enrollment Outreach attempt: 3rd Attempt Outreach status: Complete Enrolled in Lung Nodule program: No Declined reason: Other Lung Nodule Program Location: [place] Two letter attempts, no response. Discharge letter sent. documented in this encounterPremier [facility]08-26-2024 NotePatient Outreach (PULMMN) AISLINN WHEELER ([id number]) 1960 F Date Time Provider Department 04/15/24 CHIOMA DURÁN During your visit today, we recorded the following information about you: Chioma Durán 04/15/2024 7:29 AM Signed Incidental Lung Nodule Enrollment Outreach attempt: 3rd Attempt Outreach status: Complete Enrolled in Lung Nodule program: No Declined reason: Other Lung Nodule Program Location: [place] Two letter attempts, no response. Discharge letter sent. Allergies As of Date: 04/15/2024 Noted Allergy Reaction LATEX 02/05/2020 2 - Rash Comments: Added based on information entered during case entry, please review and add reactions, type, and severity as needed Date Reviewed: 04/09/2024 Reviewed by: Carmenza Espinosa MD - Fully Assessed Prescriptions as of [...] Text Encounter Status:Closed by CHIOMA DURÁN on 04/15/24[facility]08-20-2024 NoteHNO ID: [id number] Author: CARMENZA ESPINOSA MD Service: ? Author Type: Physician Type: [...] All questions and concerns were addressed. Carmenza Espinosa MD I spent a total of 17 [...] visit. Either the patient or their legal retail representative has been informed of the risks and benefits of -- and alternatives to -- treatment through a remote evaluation and consents to proceed with the evaluation remotely.[facility]08-20-2024 History of Present illness Narrative* Carmenza Espinosa MD - 04/09/2024 9:33 AM EDT VIRTUAL VISIT PROGRESS NOTE This is a [...] and BURKE at RESIDENTIAL of 100ml. Bladder remodelingwithout VUR. Valsalva voiding with atonic detrusor. She [...] All questions and concerns were addressed. Carmenza Espinosa MD I spent a total of 17 minutes on the date of the service which included preparing to see the patient, completing clinical documentation, counseling and educating the patient/family/caregiver, and communicating with other HCPs (not separately reported). I have communicated my name and active licensure. The patient's identity and physical location wereverified at the time of this visit. Either the patient or their legal retail representative has been informed of the risks and benefits of -- and alternatives to -- treatment through a remote evaluation andconsents to proceed with the evaluation remotely. documented in this encounterPremier Health [facility]08-19-2024 NoteHNO ID: [id number] Author: ?, ?, ? Service: ? Author Type: ? Type: Progress Notes Filed: 04/08/2024 09:39 Note Text: Incidental Lung Nodule Enrollment Outreach attempt: 2nd Attempt Outreach status: Complete Enrolled in Lung Nodule program: Referred Lung Nodule outreach: Needs outreach Lung Nodule Program Location: [place] [facility] History of Present illness Narrative* Chioma Durán - 04/08/2024 9:38 AM EDT Incidental Lung Nodule Enrollment Outreach attempt: 2nd Attempt Outreach status: Complete Enrolled in Lung Nodule program: Referred Lung Nodule outreach: Needs outreach Lung Nodule Program Location: [place] Two letter attempts documented in this encounterPremier Health [facility] Center08-19-2024 NotePatient Outreach (PULMMN) AISLINN WHEELER ([id number]) 1960 F Date Time Provider Department 04/08/24 CHIOMA DURÁN During your visit today, we recorded the following information about you: Chioma Durán 04/08/2024 9:39 AM Signed Incidental Lung Nodule Enrollment Outreach attempt: 2nd Attempt Outreach status: Complete Enrolled in Lung Nodule program: Referred Lung Nodule outreach: Needs outreach Lung Nodule Program Location: [place] Two letter attempts Allergies As of Date: [...] Text Encounter Status:Closed by CHIOMA DURÁN on 04/08/24[facility]08-13-2024 NoteHNO ID: [id number] Author: CARMENZA ESPINOSA MD Service: ? Author Type: Physician Type: Progress Notes Filed: 04/02/2024 11:52 Note Text: [facility] FOR [...] Will refer to consider bladder augmentation. Carmenza Espinosa MD Voiding cystourethrogram- Voiding Cystourethrogram Patient Name - Aislinn Wheeler Date - April 02, 2024 Imaging exam - VCUG Number of images saved - 11 Patient position - Sitting Radiologic Findings: A quality improvement specialist radiograph was obtained. The bony and soft tissue structures are within normal. 147 ccs contrast were used to fill the bladder. The bladder outline is irregular/trabeculated and abnormal shaped appearing. There is no ureteral reflux. During the voiding phase there is abnormal bladder neck opening and urethra is not visualized. Bladder emptying is not visualized Read by - Carmenza Espinosa [facility]08-09-2024 Nurse Note* Lorie Burrows RN - 03/29/2024 1:21 PM EDT [facility] UR[facility] LAB [...] allergy: No Females- Is patient : No Brief Writer offered:Patient declines B/O UA: Yes, Negative for [...] an understanding of instructions given. [facility]08-09-2024 Nurse Note* Lorie Burrows RN - 03/29/2024 1:21 PM EDT [facility] [...] allergy: No Females- Is patient : No Brief Writer offered:Patient declines B/O UA: Yes, Negative for [...] understanding of instructions given. documented in this encounterPremier Health [facility]08-07-2024 NoteHNO ID: [id number] Author: NURIA READ APRN.WEB METHODS DEVELOPER Service: ? Author Type: Nurse Practitioner Type: Progress Notes Filed: 03/27/2024 14:36 Note Text: Incidental Lung Nodule Enrollment Outreach attempt: 1st Attempt Outreach status: Complete Enrolled in Lung Nodule program: Referred Lung Nodule outreach: Needs outreach Lung Nodule Program Location: [facility]08-07-2024 History of Present illness Narrative * Nuria Read APRN.CNP - 03/27/2024 2:33 PM EDT Incidental Lung Nodule Enrollment Outreach attempt: 1st Attempt Outreach status: Complete Enrolled in Lung Nodule program: Referred Lung Nodule outreach: Needs outreach Lung Nodule Program Location: [facility] Big N[place]ule documented in this encounterPremier Health [facility]08-07-2024 NotePatient Outreach ([id number]) AISLINN WHEELER ([id number]) 1960 F Date Time Provider Department 03/27/24 NURIA READ [id number] During your visit today, we recorded the following information about you: Nuria Read APRN.CNP 03/27/2024 2:36 PM Signed Incidental Lung Nodule Enrollment Outreach attempt: 1st Attempt Outreach status: Complete Enrolled in Lung Nodule program: Referred Lung Nodule outreach: Needs outreach Lung Nodule Program Location: [facility] Big N[place] Allergies As of Date: 03/27/2024 Noted Allergy Reaction LATEX 02/05/2020 2 - Rash Comments: Added based on information entered during case entry, please review and add reactions, type, and severity as needed Date Reviewed: 03/26/2024 Reviewed by: Carmenza Espinosa MD - Fully Assessed Primary Visit Diagnosis:Lung [...] Text Encounter Status:Closed by NURIA READ on 03/27/24[facility] 03-26-2024 Instructions* Patient Instructions* Carmenza Espinosa MD - 03/26/2024 11:31 AM EDT Images from the original note were not included. INFORMATION ON URODYNAMICS (BLADDER FUNCTION TEST) Getting Ready for the Test You do not have to fast before the test. Begin to drink 24-32 ounces of fluid (water, cranberry juice, milk, herbal tea) 90 minutes prior tothe test so you arrive at the [facility] with the urge to empty [...] bladder when you arrive at the [facility]. Speak with a nurse if you feel you must empty your bladder. If you are taking antibiotics for a urinary tract infection (UTI) or bladder infection, notify yourphysician's office immediately. We may reschedule your bladder test. Bring a list of all prescribed and patz-neh-aswiuol medications you are taking. If you should need assistance due to a language barrier or medical needs/condition, please notify the senior scheduler when making your appointment and one will be provided for you ([phone]). If you are taking overactive bladder medications [...] your test is finished. documented in this encounterPremier Health [facility]08-06-2024 NoteHNO ID: [id number] Author: CARMENZA ESPINOSA MD Service: ? Author Type: Physician Type: Progress Notes Filed: 03/26/2024 11:54 Note Text: [facility] FOR [...] her bladder. Had bladder botox injections at [facility] about 3 mo ago with no improvement. [...] Assessed 03/26/2024 PHYSICAL EXAM: Patient declined a washer machine General: No acute distress, well appearing : [...] All questions and concerns were addressed. Carmenza Espinosa, [facility]08-06-2024 History of Present illness Narrative* Carmenza Espinosa MD - 03/26/2024 11:03 AM EDT [facility] FOR FEMALE PELVIC MEDICINE AND RECONSTRUCTIVE SURGERY HISTORY OF PRESENT ILLNESS: Aislinn Wheeler is a 63 year old F female here today for a follow up regarding voiding dysfunction. I saw her 2020 for retention with bilateral hydro associated with A1c 16.5. ISC rec at that time. Ptsubsequently underwent robotic partial nephrectomy - path benign. [...] her bladder. Had bladder botox injections at [facility] about 3 mo ago with no improvement. [...] Assessed 03/26/2024 PHYSICAL EXAM: Patient declined a washer machine General: No acute distress, well appearing : [...] All questions and concerns were addressed. Carmenza Espinosa MD * Maria Teresa Henry MA - 03/26/2024 10:40 AM EDT Pt voided upon arrival. PVR = 205 ml Via bladder scan. Pt was doing ISC, but was told she could stop. Pt instructed to give a urine specimen. 2ND Repeat PVR PVR = 135 ml Via bladder scan. documented in this encounterPremier Health [facility]08-06-2024 NoteHNO ID: [id number] Author: MARIA TERESA HENRY MA Service: ? Author Type: Gusset Ripper Type: Progress Notes Filed: 03/26/2024 11:54 Note Text: Pt voided upon arrival. PVR = 205 ml Via bladder scan. Pt was doing ISC, but was told she could stop. Pt instructed to give a urine specimen. 2ND Repeat PVR PVR = 135 ml Via bladder scan.[facility]07-08-2024 Telephone encounter Note* Telephone Encounter - Flavio Coon RN - 02/26/2024 2:43 PM EDT Pt LVM asking for her CT scan results. Noted in pt chart was an unread message from regarding the most recent CT scan. LVM for pt and let her know about MyChart message and provided number if pt has any further questions. [facility]07-08-2024 Miscellaneous Notes* Telephone Encounter - Flavio Coon RN - 02/26/2024 2:43 PM EDT Pt LVM asking for her CT scan results. Noted in pt chart was an unread message from regarding the most recent CT scan. LVM for pt and let her know about MyChart message and provided number if pt has any further questions. documented in this encounterPremier Health [facility]06-24-2024 Telephone encounter Note * Telephone Encounter - Vonnie Wilder RN - 02/12/2024 4:19 PM EDT Patient LVM requesting results from 02/01/24 CT Urogram. Will update medical team [facility]06-24-2024 Miscellaneous Notes* Telephone Encounter - Vonnie Wilder RN - 02/12/2024 4:19 PM EDT Patient LVM requesting results from 02/01/24 CT Urogram. Will update medical team documented in this encounterPremier Health [facility] Center06-13-2024 History of Present illness Narrative* Heidy Linda RN - 02/01/2024 2:45 PM EDT Radiology Service Progress Note DATE OF SERVICE: [...] e.g. those with acute kidney injury, the eGFRmay not accurately reflect actual GFR. eGFR- Date [...] DATE: February 01, 2024 TIME: 2:50 PM * Prerna Corral RT(R) - 02/01/2024 2:45 PM EDT Radiology Service Progress Note PATIENT NAME: Aislinn Wheeler DATE OF SERVICE: February 01, 2024 TIME: 2:50 PM PATIENT IDENTITY VERIFICATION COMPLETED USING TWO (2) IDENTIFIERS: Name and Date of confirmedby patient verbally. FALL SCREENING: Has the patient had 2 falls in the last year or 1 fall with injury or currently using an Ambulatory Assistive Device (Walker, Cane, Wheelchair, Crutches, etc.)? No PATIENT GENDER DATA: Female. status: : No status: NO. PATIENT RELEVANT IMPLANT DATA REVIEWED: Not Applicable PATIENT PRESENTS WITH AN IMPLANTABLE OR ATTACHED OUTSIDE ENERGY SALES REPRESENTATIVES: No RADIOLOGY DEPARTMENT: CT; Exam(s) Completed: Urogram PERIPHERAL IV DATA: Site assessment: Clean,Dry and Intact, Site disposition Discontinued SIGNED BY: RT Michael(Raquel) February 01, 2024 2:50 PM documented in this encounterPremier Health [facility]06-13-2024 NoteHNO ID: [id number] Author: PRERNA CORRAL RT(Raquel) Service: ? Author Type: Technologist Type: [...] PATIENT PRESENTS WITH AN IMPLANTABLE OR ATTACHED OUTSIDE ENERGY SALES REPRESENTATIVES: No RADIOLOGY DEPARTMENT: CT; Exam(s) Completed: Urogram PERIPHERAL IV DATA: Site assessment: Clean,Dry and Intact, Site disposition Discontinued SIGNED BY: RT Michael(R) February 01, 2024 2:50 [facility]06-13-2024 NoteHNO ID: [id number] Author: HEIDY LINDA RN Service: Nursing Author [...] Wheeler DATE: February 01, 2024 TIME: 2:50 [facility]05-24-2024 NoteHNO ID: [id number] Author: SANJANA ROSS MA Service: ? Author Type: Gusset Ripper Type: Progress Notes Filed: 01/12/2024 14:43 Note Text: Post Void Residual done on patient with 211 cc residual volume remaining. notified. Sanjana Ross [facility]05-24-2024 History of Present illness Narrative* Sanjana Ross MA - 01/12/2024 1:53 PM EDT Post Void Residual done on patient with 211 cc residual volume remaining. notified. Sanjana Ross MA * Taurus Ballard MD - 01/12/2024 1:50 PM EDT [facility] FOLLOW-UP PATIENT HISTORY AND [...] hospitalized Cr was 2.08 on 01/10/2024 and 1.97on 01/11/2024. Pt presents with hydro and retention. Patient has a history of retention requiring CIC. Discussed restarting CIC 1 time per day and monitoring output. Her PVR was elevated at 211 cc today. Discussed proceeding with a CT urogram to further assess the cause of her b/l hydronephrosis. Pthas stress urinary incontinence. Will refer to Dr. Espinosa PLAN: CIC 1 time per day with 12f catheter for urinary retention CT urogram Will refer to Dr. Tamanna Ruiz APRN.WEB METHODS DEVELOPER Attending Note I have personally performed a [...] or twice a day. She does also describestress urinary incontinence and I recommended follow-up with my partners to discuss options for herstress incontinence. With respect to follow-up of her kidney tumor I recommend a CT urogram. This will also evaluate theureters to ensure that there is another cause for her bilateral hydro. Other additions or changes: As edited Signature: Dr. Taurus Ballard MD Date: 01/12/2024 Time: 2:11 PM By signing my name below, I, Ivania Vidal, attest that this documentation has been prepared under thedirection and in the presence of Dr. Ballard Electronically signed, Power Blanco I agree with the Chief Complaint, ROS, and Past Histories independently gathered by the clinical product support consultant and the remaining scribed note accurately describes my personal service to the patient. Dr. Taurus Ballard MD documented in this encounterPremier Health [facility]05-24-2024 NoteHNO ID: [id number] Author: TAURUS BALLARD MD Service: ? Author Type: Physician Type: Progress Notes Filed: 01/12/2024 14:43 Note Text: [facility] FOLLOW-UP PATIENT HISTORY AND PHYSICAL EXAM PATIENT [...] stress urinary incontinence. Will refer to Dr. Espinosa PLAN: CIC 1 time per day with 12f catheter for urinary retention CT urogram Will refer to Dr. Tamanna Ruiz APRN.WEB METHODS DEVELOPER Attending Note I have personally performed a [...] Ballard MD Date: 01/12/2024 (more content not included)...[id number] Patient Education 10/25/2023 16:06:45 Botulinum Toxin [...] including vitamins, herbs, eye drops, creams, and dgne-mev-fgymzft medicines. Any problems you or family members [...] provider tells you to take them. Taking urlw-egh-nxlgrbo medicines, vitamins, herbs, and supplements. General instructions [...] Follow these instructions at home: Medicines Take kbkb-qev-zaeuquh and prescription medicines only as told by your health care provider. If you were prescribed an antibiotic medicine, take it as told by your health care provider. Do notstop using the antibiotic even if you start [...] provider. Document Revised: 02/11/2022 Document Reviewed: 02/11/2022 [employer] Patient Education 2022 Non[employer]. Follow Up Care 09/26/2023 08:43:34 With:HEIDY ARNOLD PA-C, URL Address: [address] [place] [address] When: Unknown [facility] [place] 02-07-2024 Miscellaneous Notes* Telephone Encounter - Drew Alston, Research Coordinator - 09/27/2023 2:32 PM ESTSummary: [place] IRB# [id number] IRB# [id number]: Vascular events in patients undergoing same-day nonCardiac surgery - [facility]STOPHER PI: Mary Rojas MD, LETY, BARNEY. Outcomes Research Department. [facility] [place]. [facility]. Aislinn Wheeler was unavailable at the listed phone number. We will attempt to contact the patient through [facility] message. Drew Esqueda Research Coordinator Research Coordinator documented in this encounterPremier Health Upper Valley Medical Center02-06-2024 Miscellaneous Notes* Telephone Encounter - Drew Alston Research Coordinator - 09/26/2023 3:31 PM ESTSummary: [facility] IRB# [id number] IRB# [id number]: Vascular events in patients undergoing same-day nonCardiac surgery - [facility]STOPHER PI: Mary Rojas MD, LETY, BARNEY. Outcomes Research Department. Anesthesia [place]. [facility]. Aislinn Wheeler was unavailable at the listed phone number. We will attempt to contact the patient again at a later date. Drew Esqueda Research Coordinator Research Coordinator documented in this encounterPremier Health Upper Valley [facility] Center01-14-2024 NoteHNO ID: [id number] Author: KRYSTA COPE MD Service: Hospital Medicine Author Type: Physician [...] sliding scale Neurogenic bladder with retention requiring Valerio in the ER, On straight catheter per urology note but patient mentioned for almost 10 months she was not needing straight catheterization discontinued Valerio monitor for retention Prn st cath Chronic [...] -- 08/31/23 1115 activity - mobilize patient (md,nm) VTE Prophylaxis: VTE prophylaxis appropriate SIGNATURE: Krysta Cope MD PATIENT NAME: Aislinn Wheeler DATE: September 03, 2023 TIME: 6:31 [facility]01-13-2024 NoteHNO ID: [id number] Author: KRYSTA COPE MD Service: Hospital Medicine Author Type: Physician [...] sliding scale. Neurogenic bladder with retention requiring Valerio in the ER, On straight catheter per urology note but patient mentioned for almost 10 months she was not needing straight catheterization discontinue Valerio today monitor for retention Chronic pain on [...] -- 08/31/23 1115 activity - mobilize patient ([place]) VTE Prophylaxis: VTE prophylaxis appropriate SIGNATURE: Krysta Cope MD PATIENT NAME: Aislinn Wheeler DATE: September 02, 2023 TIME: 2:31 [facility]01-13-2024 NoteHNO ID: [id number] Author: NOTE, INTERFACE, ? Service: ? Author Type: ? Type: Progress Notes Filed: 09/02/2023 02:20 Note Text: Epic Scheduled Downtime: 09/02/2023 1:00:00 AM to 09/02/2023 2:04:22 [facility]01-12-2024 NoteHNO ID: [id number] Author: MIKE WILDER RN Service: Care Management Author Type: Registered Nurse Type: Care Mgt Progress Note Filed: 09/01/2023 15:30 Note Text: CARE MANAGEMENT WEEKEND PLANNING NOTE NO WEEKEND DISCHARGE Disposition: TBD Anticipated Discharge Date: No weekend DC anticipated Weekend Band Machine Operator Pager #: Girish Rogers [phone] ANATOLIY UTI - repeat UA sent - bc pending Waiting on podiatry consult SIGNATURE: Mike Wilder RN PATIENT NAME: Aislinn Wheeler DATE: September 01, 2023 TIME: 3:28 PM PAGER/CONTACT #: [phone] NoteHNO ID: [id number] Author: ANTHONY BARROW MD Service: Hospital Medicine [...] sliding scale. Neurogenic bladder with retention requiring Valerio in the ER, supposed to be on straight catheter per urology note but patient mentioned for almost 10 months she was not needing straight catheterization, will discontinue Valerio tomorrow and monitor for retention Chronic pain [...] -- 08/31/23 1115 activity - mobilize patient (fl,[place]) VTE Prophylaxis: VTE prophylaxis appropriate SIGNATURE: Anthony Barrow MD PATIENT NAME: Aislinn Wheeler DATE: September 01, 2023 TIME: 11:36 [facility]01-11-2024 History of Past illness Narrative* Problem [...] this encounter (statuses as of 09/27/2023) [facility]01-11-2024 History of Past illness Narrative* [...] this encounter (statuses as of 09/28/2023) [facility]01-11-2024 History of Past illness Narrative* [...] this encounter (statuses as of 09/28/2023) [facility]01-11-2024 NoteHNO ID: [id number] Author: TIN QUIÑONEZ LSW Service: Care Management Author Type: Founder Chairman And Chief Creative Officer Type: Care Mgt Initial Assessment Filed: 08/31/2023 14:02 Note Text: CARE MANAGEMENT: ASSESSMENT AND DISCHARGE PLAN SERVICE DATE: August 31, 2023 SERVICE TIME: 1:42 PM PCP: Agusto Olmstead Primary Contact: Extended Emergency Contact Information Primary Emergency Contact: ORIONLOLA Mobile Relation: Grandchild Admission Status: Inpatient Insurance Provider: UHC AARP MEDICARE PPO Discharge Planning requested by: Per Department Practice Potential Transition Plans To Be Determined Advance Directives Current Advance Directive: None Bandsaw Operator Attempted to Assist with AD Completion: Yes Action: Education Provided Current Living Arrangements and Support Lives with: Family members, Children Type of Residence: Private Residence (House) Support: Family members How do you manage to accomplish the following: Independent: Ambulation;Bathe/Shower;Dress;Meals/Meal Prep;Going to the bathroom;Medication Management;Transportation to appointments/community Current Services/Equipment Current Post-Acute Service(s): None Discharge Planning Patient Goal(s): General wellness Anderson of Choice Explained: Anderson of Choice Given: No Reason Not Given: [...] with pt at bedside. Pt lives in [facility] with her grandchildren (18, 17, [...] 31, 2023 TIME: 1:42 PM CONTACT #: [id number] Evaluation note* Encounter Date Diagnosis Assessment Notes Treatment Notes Treatment Clinical Notes Jun, Vitamin B12 deficiency (ICD-10 - E53.8) Valuation App Other 11-03-2023 NoteHNO ID: [id number] Author: Lakisha Kaye Service: ? Author Type: ? Type: Plan of Care Filed: 06/26/2023 9:53 AM Note Text: PHARMACY BEDSIDE DELIVERY SERVICE Patient Name: Aislinn Wheeler The marked outpatient medications were Filled at: [facility] and delivered to the patient's bedside to [facility] Medication List START taking these medications acetaminophen [...] your Primary Care Provider. Lakisha Kaye PAGER: [phone] June 26, 2023 9:52 [facility]11-03-2023 Miscellaneous Notes* Telephone Encounter - Heidy Garcia RN - 06/23/2023 9:03 AM EDT Patient had left robotic partial nephrectomy by Dr. Ballard on 06/22/2023 Will call for surgical follow up once discharged documented in this encounterPrem[facility]23 NoteHNO ID: [id number] Author: Taurus Ballard MD Service: Urology Author Type: Physician Type: Progress Notes Filed: 06/23/2023 1:37 PM Note Text: [facility] PROGRESS NOTE Name: Aislinn Wheeler Bed: [id number] Date: June 23, 2023 After Hours [facility] Urology Service Pager: [phone] ASSESSMENT AND PLAN Aislinn Wheeler is a 63 year old female with PMHx of left renal cyst c/f neoplasm now POD#1 s/p left cyst decortication Interval/daily plan: GIS today Valerio out today JUAN drain out prior to [...] Jeet De La Fuente MD Urology Resident [facility] [place] Pager [phone] SUBJECTIVE -c/o pain, had a BM, no [...] 0659 06/23/23 0700 - 06/24/23 0659 Shift 6527-9333 0587-0917 4670-7171 24 Hour Total 1536-9245 6207-5449 8385-0022 24 Hour Total INTAKE IV 1600 1600 Volume (mL) (lactated ringers iv infusion) 1000 1000 Volume (mL) (lactated ringers iv infusion) 600 600 Shift Total 1600 1600 OUTPUT Urine 300 377 776 4567 OR Urine Output 300 300 Output ( Indwelling Urinary Catheter 06/22/23 1130 Valerio 16 Fr) 216 048 1251 Tubes 20 40 60 Drain/Tube Output (Drain/Tube 06/22/23 1333 Lex Vega Right Lower Quadrant Abdomen Drain #1) 20 40 60 # of BMs Number of BMs 1 x 1 x Blood 50 50 Estimated Blood loss 50 50 Shift Total 350 249 985 8153 Weight (kg) 59 59 59 59 59 59 59 Physical Exam General: Well-appearing, no acute distress CV: Warm and well perfused Lungs: Unlabored breathing on RA Abdomen: soft, elif -tender, non-distended, JUAN ss Wound: Incision clean, dry, and intact : Valerio catheter present and Urine light pink Extremities: [...] We will call with pathology. Taurus Ballard [facility]11-02-2023 NoteHNO ID: [id number] Author: Linda Nicholson RN Service: Nursing Author Type: Registered Nurse Type: Nursing Progress Note Filed: 06/22/2023 2:15 PM Note Text: surgical dressing: surgical glue, [facility]11-02-2023 NoteHNO ID: [id number] Author: Lola Be APRN.QUIRINO Service: ? Author Type: Nurse Physical Therapy Instructor Type: Anesthesia Procedure Notes Filed: 06/22/2023 12:24 PM Note Text: ANESTHESIOLOGY PROCEDURE NOTE Airway General Information Procedure Start Time/Medication Administration: 06/22/2023 11:22 AM Patient location during procedure: OR Patient identity confirmed: arm band, care count team member and patient Staffing CURTAIN STRETCHER ASSEMBLER: Lola Be APRN.CURTAIN STRETCHER ASSEMBLER Performed by: QUIRINO Indications and Patient Condition [...] insertion, baseline dentition intact SIGNATURE: Lola Be APRN.CURTAIN STRETCHER ASSEMBLER PATIENT NAME: Aislinn Wheeler DATE: June 22, 2023 TIME: 12:24 PM CSN: [id number] Miscellaneous Notes* Telephone Encounter - Vonnie Wilder RN - 06/15/2023 11:24 AM EDT Attempted to call patient for pre op instructions.mailbox is full and unable to LVM. Will try again. documented in this encounterPrem[facility]10-[facility]23 Evaluation note* Encounter Date Diagnosis [...] (ICD-10 - Z68.25) May, Other see above Valuation App Other 10-02-2023 Note [id number]:127[facility] 05-22-2023 NoteCystoscopy with Botox injection ? Voiding [...] have a fever over 100 degrees.[facility] 05-22-2023 Hospital Discharge instructions Patient Education 05/22/2023 [...] Up Care 05/03/2023 10:48:47 With:Lisa Porras Address: [address] [place] [address] [phone] Business (1) [facility] Juancarlos Leger [address] [address] [phone] Business (1) When: Unknown Comments:Office to schedule follow up in 1 month with [facility]09-28-2023 Evaluation note* Encounter Date Diagnosis Assessment Notes [...] 24.0-24.9, adult (ICD-10 - Z68.24) see above Valuation App Other 09-28-2023 Miscellaneous Notes* Telephone Encounter - Agusto Faulkner - 05/18/2023 12:57 PM EDT Consult notes sent back to Dr. Lisa Porras , phone [phone]. From Dr. Ballard office. documented in this encounterPrem[facility]09-27-2023 NoteHNO ID: [id number] Author: Taurus Ballard MD Service: ? Author Type: Physician Type: Progress Notes Filed: 05/17/2023 1:35 PM Note Text: [facility] FOLLOW-UP PATIENT HISTORY AND PHYSICAL EXAM PATIENT INFO: Aislinn Wheeler 63 year old REFERRING M.D.: No referring provider defined for this encounter. CHIEF COMPLAINT: Cystic Bosniak 2F lesion, ANATOLIY HISTORY: Aislinn Wheeler is a 63 yr old female with a hx of urinary incontinence, uncontrolled DM, and severe urinary retention. Had b/l hydronephrosis and ANATOLIY which resolved with valerio catheter placement. Pt followed with Dr. Espinosa and Alicia Pablo. MRI showed a bosniak 2F lesion CT 05/10/2023- left lower pole cystic lesion measuring 9.4 x 6.8 cm rotating the kidney RBUS 05/11/23- 8.7 x 8.2x 7.1 cystic lesion Pt reports left flank pain when bending or moving. Had cysto/UDS with Dr. Espinosa 03/01/2021 UDS: No detrusor function on voiding- [...] 1.93 [facility] IMPRESSION: Since the prior CT scan [...] b/l hydronephrosis and ANATOLIY which resolved with valerio catheter placement. Pt followed with Dr. Espinosa and Alicia Pablo. MRI showed a bosniak [...] threatening or minor complicatio (more content not included)...[facility] Discharge instructions Patient Education 02/22/2023 09:35:15 [...] provider. Document Revised: 12/16/2021 Document Reviewed: 12/16/2021 [employer] Patient Education 2022 Nonabox. Follow Up Care 09/13/2022 14:59:43 With:Vern TAVERAS, EMELINA Hernandez, URO Address: When:Within 2 Month(s) Comments:w/ [facility] 05-09-2023 Evaluation note* Encounter Date Diagnosis [...] N28.1) Patient follows with urology clinic in [facility] for enlarging left renal cyst. December, Hyperkalemia [...] her blood pressure persistently more than 150/90. Valuation App Other 02-01-2023 Hospital Discharge instructions Patient Education [...] 07/24/2013 Document Revised: 03/27/2019 Document Reviewed: 03/27/2019 [employer] Patient Education 2020 Nonabox. Follow Up Care 09/14/2022 14:44:34 With:Vern TAVERAS, EMELINA Hernandez, URO Address: When: Unknown [facility] 01-24-2023 Hospital Discharge instructions Patient Education [...] fried and sweet foods. General instructions Take xkrd-zxk-jfluujv and prescription medicines only as told by [...] 06/03/2010 Document Revised: 11/28/2019 Document Reviewed: 08/23/2018 [employer] Patient Education 2020 Nonabox. Follow Up Care 08/24/2022 11:21:49 With:HEIDY ARNOLD PA-C, URL Address: [address] [place] [address]. [place] [address] When: Unknown [facility] 06-09-2021 Miscellaneous Notes* Telephone Encounter - Barbara Talbot - 01/27/2021 10:30 AM EDT Scheduled 02/15 * Telephone Encounter - Barb Silva MD - 01/27/2021 9:40 AM EDT Please schedule hospital follow up with Guy Overton Deitzer, or Sasha. Virtual ok documented in this encounterPrem[facility]06-03-2021 NoteHNO ID: [id number] Author: Griselda Diaz ([employer]) Service: ? Author Type: ? Type: Plan [...] Generic drug: insulin detemir U-100 Griselda Diaz (Background Investigator) PAGER: paris January 21, 2021 4:27 [facility] [id number] NoteHNO ID: [id number] Author: ELIZABETH Kothari Service: Care Management Author Type: Founder Chairman And Chief Creative Officer Type: Care Mgt Progress Note Filed: 01/21/2021 1:39 PM Note Text: CARE MANAGEMENT DISCHARGE NOTE SERVICE DATE: 01/21/2021 SERVICE TIME: 1300 LOS: 4 days Admission Date: 01/17/2021 DISCHARGE ARRANGEMENT (list agency and phone number) Discharge Arrangement: Home;Home Shelter Care: Nursing;PT;OT [facility] CAREGIVER ASSESSMENT: Maira Davila to transport home [phone] HANDOFF COMMUNICATION: Handoff to: Other Caregiver;Primary Care Physician Primary Care Physician Name/Phone: Madeline Jordan PA-C Other Caregiver Name/Phone: [facility] TRANSPORTATION ARRANGEMENTS: Transportation Arrangements: Car (Family to transport) ADDITIONAL CONTACT RESOURCES: [facility] not able to accept. Anderson of choice provided and sent to first available to accept to her service area. [facility] willing to accept. Pt concerned she does not have [place] part B to cover services. I spoke with grdtr who plans on paying for services out of pocket until pt's insurance becomes active February 18, 2021 Discharge Information Row Name ED to Hosp-Admission (Current) from 01/17/[address] [facility] Fax# Care to start after your appointment with internal medicine on 01/25/2021 for additional orders. The agency will be contacting you to set this up [employer] [facility] [employer] Equipment Needed Walker was delivered to hospital room prior to discharge [facility] willing to accept pending pt has her initial appointment with internal medicine on 01/25/2021. Both pt and maira Davila were advised. Dr Hansen also provided script for outpt therapy should home care fall through or cost too high for grdtr to cover. Lola to call [facility] to discuss further. Walker was delivered to room and prescription was sent to [facility]. Lola to waste picker. No other homegoing needs. SIGNATURE: ELIZABETH Kothari PATIENT NAME: Aislinn Wheeler DATE: January 21, 2021 TIME: 1:32 PM PAGER/CONTACT #: [phone] NoteHNO ID: [id number] Author: Derik Daniel Service: Care Management Author Type: Resource Center Salt Refiner Type: Care Mgt Progress Note Filed: 01/21/2021 11:24 AM Note Text: CARE MANAGEMENT PROGRESS NOTE SERVICE DATE: 01/21/2021 SERVICE TIME: 950 LOS: 4 days IMM Follow Up Copy Given: Yes Copy given to:: Patient Method: In Person SIGNATURE: Derikmike Khalilkaren PATIENT NAME: Aislinn Wheeler DATE: January 21, 2021 TIME: 11:23 AM PAGER/CONTACT #: [phone] NoteHNO ID: [id number] Author: Ailyn Salas RN Service: Care Management Author Type: Registered Nurse Type: Care Mgt Progress Note Filed: 01/20/2021 3:29 PM Note Text: CARE MANAGEMENT PROGRESS NOTE SERVICE DATE: 01/20/2021 SERVICE TIME: 3:09 PM LOS: 3 days Anderson of Choice Given: Yes Level of Care Discussed: Home Care Financial Disclosure Provided: No Financial Disclosure Comments: [facility] does not service area Provider List: [...] sent. Patient does not have a PCP. [facility] can provide a visiting provider [...] 20, 2021 TIME: 3:09 PM PAGER/CONTACT #: [phone] NoteHNO ID: [id number] Author: Inna Hansen DO Service: Hospital Medicine Author Type: Physician Type: Progress Notes Filed: 01/20/2021 12:37 PM Note Text: DEPARTMENT OF HOSPITAL MEDICINE PROGRESS NOTE SERVICE DATE: 01/20/2021 SERVICE TIME: 10:37 AM Hospital Medicine/Primary Attending: Inna Hansen DO NIGHT AND WEEKEND COVERAGE: DELMY COVERAGE: Days: [phone], please contact via [employer]ev[employer] Nights: [phone], please page CC Hospitalist Night coverage pager [phone] Subjective INTERVAL HPI: nausea and vomiting this [...] all four extremities without gross deficits. : Valerio in place; light yellow urine in collection bag Lines, Drains, and Airways Line Peripheral 01/17/21 1650 Short Right Antecubital 22 Gauge 2 days Peripheral 01/17/21 1700 Short Left Arm 22 Gauge 2 days Drain Indwelling Urinary Catheter 01/17/21 Assessment Valerio 3 days Reviewed Valerio and needs to be continued: REASONS: Urinary [...] Concern for bladder outlet obstruction, suspected mass. Valerio placed Leukocytosis improving. Afebrile. HDS. Sepsis resolved. Continue ceftriaxone Urine culture: Proteus. Blood cultures: NGTD Urology consult appreciated. Plan for discharge with Valerio and outpatient cystoscopy. Left renal cystic lesion [...] Non-Pharmacologic VTE Prophylaxis/Anticoagulants 01/17/212214 pneumatic compression stockings ([place], [place]) 01/17/212214 activity - mobilize patient ([place]) VTE Prophylaxis: VTE prophylaxis appropriate Disposition: [facility] Inna Hansen DO January 20, 2021 10:39 [facility] [id number] NoteHNO ID: [id number] Author: Benjamin Bernal MD Service: Urology Author [...] Lungs: even unlabored respirations Abdomen: soft Genitourinary: valerio catheter draining cy urine Extremities: no LE [...] Cx showing proteus. ? PLAN -Maintain indwelling Valerio and trend creatinine over the next 1 [...] kidney obtained can discharge patient with indwelling Valerio catheter. -We will arrange outpatient urologic follow-up to evaluate the bladder with cystoscopy and urodynamics. We will also discuss management of this cystic renal mass at that time. ? Wendy Bernal MD January 19, 2021 4:12 [facility] HospitalSpnpfszg65-22-8423 NoteHNO ID: [id number] Author: Shelby Lucero PharmD Service: Pharmacy Author Type: Pharmacist Type: Plan of Care Filed: 01/19/2021 11:02 AM Note Text: PHARMACY MEDICATION REVIEW Patient Name: Aislinn Wheeler : 1960 The following medications were updated within the ARCHITECTURAL REPRESENTATIVE medication list: Medications ADDED to ARCHITECTURAL REPRESENTATIVE medication list ? Albuterol HFA (replaced nebs) ? Levemir (replaced Lantus) Medications CHANGED on ARCHITECTURAL REPRESENTATIVE medication list ? Lyrica (added instructions) ? Symbicort (added instructions) Medications REMOVED from ARCHITECTURAL REPRESENTATIVE medication list ? Diltiazem ? Cymbalta [...] clearly identified: Medication name and Pharmacy records: Fraxion data, [facility] pharmacy (phone call) Medication nonadherence identified: Unable to assess - it is clear the patient is noncompliant with her medications (admits she has been off her meds, no insulin fills at [facility] despite patient report), but at this time unable to assess reason for nonadherence. Reconciliation completed: Yes All ARCHITECTURAL REPRESENTATIVE medications addressed by LIP and Medication reconciliation completed by: Shelby Lucero PharmD Medications with dose or frequency intentionally adjusted at admission: ? [place] modified to 5/325 mg q6h PRN New medications at admission: ? Ceftriaxone Note patient ordered insulin regimen (Lantus 15 units QHS + sliding scale Humalog) and based on blood glucose readings, this is appropriate Patient interested in Bedside Delivery Services or using OP Pharmacy at discharge? Unable to assess Preferred outpatient pharmacy: [id number] - [place] [address] [address] - [phone] Allergies: Latex Rash Comment:Added based on information [...] as instructed twice daily. Shelby Lucero, PharmD 01/19/2021[facility] HospitalDwmpjhwb63-20-6466 NoteHNO ID: [id number] Author: Inna Hansen DO Service: Hospital Medicine Author Type: Physician Type: Progress Notes Filed: 01/19/2021 2:24 PM Note Text: DEPARTMENT OF HOSPITAL MEDICINE PROGRESS NOTE SERVICE DATE: 01/19/2021 SERVICE TIME: 9:30 AM Hospital Medicine/Primary Attending: Inna Hansen DO NIGHT AND WEEKEND COVERAGE: [place] COVERAGE: Days: [phone], please contact via [employer] Nights: [phone], please page CC Hospitalist Night coverage pager [phone] Subjective INTERVAL HPI: no overnight events. Denies [...] all four extremities without gross deficits. : Valerio in place; dark yellow urine in collection bag Lines, Drains, and Airways Line Peripheral 01/17/21 1650 Short Right Antecubital 22 Gauge 1 day Peripheral 01/17/21 1700 Short Left Arm 22 Gauge 1 day Drain Indwelling Urinary Catheter 01/17/21 Assessment Valerio 2 days Reviewed Valerio and needs to be continued: REASONS: Urinary [...] Concern for bladder outlet obstruction, suspected mass. Valerio placed Leukocytosis improving. Afebrile. HDS. Sepsis resolved. Continue ceftriaxone Urine culture: GNB Urology consult appreciated. Plan for discharge with Valerio and outpatient cystoscopy. Left renal cystic lesion [...] Non-Pharmacologic VTE Prophylaxis/Anticoagulants 01/17/212214 pneumatic compression stockings ([place], [place]) 01/17/212214 activity - mobilize patient ([place]) VTE Prophylaxis: VTE prophylaxis appropriate Disposition: Home Discussed with granddaantoni Davila by phone with patient's permission. Inna Hansen DO January 19, 2021 9:33 [facility] [id number] History of Past illness Narrative* Problem Noted Date Resolved Date Acute cystitis without hematuria 01/18/2021 01/21/2021 Pyelonephritis 01/17/2021 01/21/2021 Sepsis 01/17/2021 01/21/2021 Hyponatremia 01/17/2021 01/21/2021 Hyperkalemia 01/17/2021 01/21/2021 Hydronephrosis due to obstruction of ureter 12/2101/21/2021 documented as of this encounter (statuses as of 01/27/2021) [facility] History of Past illness Narrative* Problem Noted Date Diagnosed Date Resolved Date Acute cystitis without hematuria 01/18/2021 01/21/2021 Pyelonephritis 01/17/2021 01/21/2021 Sepsis 01/17/2021 01/21/2021 Hyponatremia 01/17/2021 01/21/2021 Hyperkalemia 01/17/2021 01/21/2021 Hydronephrosis due to obstruction of ureter 01/17/2021 01/21/2021 documented as of this encounter (statuses as of 06/09/2023) [facility] History of Past illness Narrative* Problem Noted Date Diagnosed Date Resolved Date Acute cystitis without hematuria 01/18/2021 01/21/2021 Pyelonephritis 01/17/2021 01/21/2021 Sepsis 01/17/2021 01/21/2021 Hyponatremia 01/17/2021 01/21/2021 Hyperkalemia 01/17/2021 01/21/2021 Hydronephrosis due to obstruction of ureter 01/17/2021 01/21/2021 documented as of this encounter (statuses as of 06/15/2023) [facility] History of Past illness Narrative* Problem Noted Date Diagnosed Date Resolved Date Acute cystitis without hematuria 01/18/2021 01/21/2021 Pyelonephritis 01/17/2021 01/21/2021 Sepsis 01/17/2021 01/21/2021 Hyponatremia 01/17/2021 01/21/2021 Hyperkalemia 01/17/2021 01/21/2021 Hydronephrosis due to obstruction of ureter 01/17/2021 01/21/2021 documented as of this encounter (statuses as of 06/19/2023) [facility] of Past illness Narrative* Problem Noted Date Diagnosed Date Resolved Date Acute cystitis without hematuria 01/18/2021 01/21/2021 Pyelonephritis 01/17/2021 01/21/2021 Sepsis 01/17/2021 01/21/2021 Hyponatremia 01/17/2021 01/21/2021 Hyperkalemia 01/17/2021 01/21/2021 Hydronephrosis due to obstruction of ureter 01/17/2021 01/21/2021 documented as of this encounter (statuses as of 06/23/2023) [facility] of Past illness Narrative* Problem Noted Date Diagnosed Date Resolved Date Acute cystitis without hematuria 01/18/2021 01/21/2021 Pyelonephritis 01/17/2021 01/21/2021 Sepsis 01/17/2021 01/21/2021 Hyponatremia 01/17/2021 01/21/2021 Hyperkalemia 01/17/2021 01/21/2021 Hydronephrosis due to obstruction of ureter 01/17/2021 01/21/2021 documented as of this encounter (statuses as of 07/05/2023) [facility] [facility]05-31-2021 NoteHNO ID: [id number] Author: Inna Hansen DO Service: Hospital Medicine Author Type: Physician Type: Progress Notes Filed: 01/18/2021 4:10 PM Note Text: DEPARTMENT OF HOSPITAL MEDICINE PROGRESS NOTE SERVICE DATE: 01/18/2021 SERVICE TIME: 8:57 AM Hospital Medicine/Primary Attending: Inna Hansen DO NIGHT AND WEEKEND COVERAGE: DELMY COVERAGE: Days: [phone], please contact via [employer] Nights: [phone], please page CC Hospitalist Night coverage pager [phone] Subjective INTERVAL HPI: no overnight events. Denies [...] all four extremities without gross deficits. : Valerio in place; red urine in collection bag Lines, Drains, and Airways Line Peripheral 01/17/21 1650 Short Right Antecubital 22 Gauge <1 day Peripheral 01/17/21 1700 Short Left Arm 22 Gauge <1 day Drain Indwelling Urinary Catheter 01/17/21 Assessment Valerio 1 day Reviewed Valerio and needs to be continued: REASONS: Urinary retention or obstruction DATA: Diagnostic tests reviewed for today's visit: Most recent labs Most recent imaging Assessment/Plan Problem List Sepsis (HCC) POA: Yes Pyelonephritis POA: Yes Hydronephrosis due to obstruction of ureter POA: Yes Acute cystitis without hematuria POA: Unknown Acute bilateral obstructive uropathy POA: Yes Hyponatremia POA: Yes ANATOLIY (acute kidney injury) ([facility]) POA: Yes Hyperkalemia POA: Yes Principal Problem: Sepsis (HCC) Pyelonephritis Complicated UTI Hydronephrosis due to obstruction of ureter CT reviewed. Concern for bladder outlet obstruction, suspected mass. Valerio placed Leukocytosis persists. Afebrile. HDS. Continue ceftriaxone Await urine culture results Urology consult appreciated. Plan for discharge with Valerio and outpatient cystoscopy. Left renal cystic lesion [...] VTE Prophylaxis/Anticoagulants 01/17/21 221 pneumatic compression stockings ([place], [place]) 01/17/21 221 activity - mobilize patient ([place]) VTE Prophylaxis: VTE prophylaxis appropriate Disposition: Home SIGNATURE: Inna Hansen DO PATIENT NAME: Aislinn Wheeler DATE: January 18, 2021 TIME: 8:57 [id number] NoteHNO ID: [id number] Author: Taurus Ballard MD Service: Urology Author [...] obstruction causing bilateral hydroureteronephrosis and ANATOLIY. Recommend Valerio catheter and IV antibiotics. Can tailor antibiotics based on urine culture and sensitivities. Recommend trending creatinine with the urinary catheter in place to determine if renal function improves. Can consider repeating an ultrasound of the kidneys in 48 hours to determine if hydronephrosis has improved as well. We will need urologic evaluation to determine cause of her urinary retention. Taurus Ballard, [facility] [id number] NoteHNO ID: [id number] Author: RT Dayanara(R) Service: Radiology Author Type: Internal Corrosion Specialist Type: Progress Notes Filed: 01/17/2021 8:04 PM [...] BY: RT Dayanara(Raquel) January 17, 2021 8:03 [id number] NoteHNO ID: [id number] Author: RT Dayanara(Raquel) Service: Radiology Author Type: Internal Corrosion Specialist Type: Progress Notes Filed: 01/17/2021 5:30 PM [...] Antoinette Dailey RT(R) January 17, 2021 5:30 [facility] [id number] NoteHNO ID: [id number] Author: Guy Rogers RT(R) Service: Radiology Author Type: Internal Corrosion Specialist Type: Progress Notes Filed: 01/17/2021 4:23 PM [...] Workman RT (R) January 17, 2021 4:22 [facility] [id number] NoteHNO ID: [id number] Author: Wendy Rainey, AHSAN Service: ? Author Type: Clinical Internal Corrosion Specialist Type: Progress Notes Filed: 01/17/2021 4:19 PM [...] BY: AHSAN Dozier January 17, 2021 4:19 [facility] Future Appointments Appointment Date:12/13/2022 03:00:00 PM Scheduled Provider:HEIDY ARNOLD PA-C Location:[facility] Appointment Type:URO Office Visit [facility] evaluation + Plan note Future Appointments Appointment Date:10/26/2022 10:00:00 AM Scheduled Provider:Lisa Porras MD Location:[facility] Appointment Type:URO Office Visit Appointment Date:12/13/2022 03:00:00 PM Scheduled Provider:HEIDY ARNOLD PA-C Location:[facility] Appointment Type:URO Office Visit [facility] evaluation + Plan note Future Appointments Appointment Date:05/03/2023 10:00:00 AM Scheduled Provider:Lisa Porras MD Location:[facility] Appointment Type:URO Office Visit [facility] evaluation + Plan note Future Appointments Appointment Date:05/03/2023 10:00:00 AM Scheduled Provider:Lisa Porras MD Location:[facility] Appointment Type:URO Office Visit Diagnostic Tests Pending * Urine Culture [facility] Future Appointments Appointment Date:05/15/2023 12:30:00 PM Scheduled Provider: Location:[facility] Appointment Type:Urology CALL PAT FT Appointment Date:05/22/2023 10:30:00 AM Scheduled Provider: Location:[facility] Appointment Type:Urology FT Diagnostic Tests Pending * Urine Culture [facility]11/23 [facility] Future Appointments Appointment Date:06/28/2023 10:45:00 AM Scheduled Provider:Lisa Porras MD Location:[facility] Appointment Type:[facility]O [facility] Future Appointments Appointment Date:06/28/2023 10:45:00 AM Scheduled Provider:Lisa Porras MD Location:[facility] Appointment Type:URO Office Visit Diagnostic Tests Pending * Urine Culture [facility]08[facility]23 [facility] Future Appointments Appointment Date:07/18/2023 11:20:00 AM Scheduled Provider:HEIDY ARNOLD PA-C Location:[facility] Appointment Type:URO Office Visit [facility] evaluation + Plan note Future Appointments Appointment Date:10/10/2023 11:40:00 AM Scheduled Provider:HEIDY ARNOLD PA-C Location:[facility] Appointment Type:URO Office Visit [facility] evaluation noteNo InformationFulton [employer] Other evaluation note* Diagnosis Kidney cyst, acquired- Primary Acquired cyst of kidney [facility] assessment information [facility] Work Phone: evaluazcsg note* Diagnosis Other hydronephrosis- Primary Screening for genitourinary condition Screening for other and unspecified genitourinary condition documented [facility] this [facility]* Diagnosis Retention of urine- Primary Retention of urine, unspecified Screening for genitourinary condition Screening for other and unspecified genitourinary condition Type 2 diabetes mellitus with hyperglycemia, with long-term current use of insulin ([facility]) BURKE (stress urinary incontinence, female) Female stress incontinence documented in this encounter [facility]* Diagnosis Lung nodule- Primary Solitary pulmonary nodule [facility]* Diagnosis Stress incontinence- Primary Female stress incontinence Dysfunctional voiding of urine Unspecified disorder of urethra and urinary tract documented in this encounter [facility] note* Diagnosis Preop examination- Primary Preoperative [...] hyperglycemia, with long-term current use of insulin ([facility]) Neurogenic bladder- Primary Neurogenic bladder, NOS BURKE (stress urinary incontinence, female) Female stress incontinence documented in this encounter [facility]* Diagnosis Preop examination- Primary Preoperative examination, [...] hyperglycemia, with long-term current use of insulin ([facility]) Other hydronephrosis documented in this encounter [facility]* Diagnosis Preop examination- Primary Preoperative examination, [...] hyperglycemia, with long-term current use of insulin ([facility]) Other hydronephrosis BURKE (stress urinary incontinence, female) Female stress incontinence Bladder compliance low Low bladder compliance documented [facility] this [facility]* Diagnosis Preop examination- Primary Preoperative examination, [...] hyperglycemia, with long-term current use of insulin ([facility]) Screening for genitourinary condition Screening for other and unspecified genitourinary condition documented in this [facility]* Diagnosis Onset Date Resolution Status Anemia of renal disease acut e B12 deficiency acute CKD stage 3b, GFR 30-44 ml/min acute 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 acute Hyperkalemia acute Hyperparathyroidism acute Hypertensive nephropathy acu te Renal cyst acute [facility] Work Phone: Evaluation note* Diagnosis Encounter for subsequent annual wellness visit (AWV) in Medicare patient- Primary Age related osteoporosis, unspecified pathological fracture presence ([facility]) Stage 3 chronic kidney disease, unspecified whether stage 3a or 3b CKD (HCC) ([facility]) Primary hypertension ([facility]) Unspecified essential hypertension Type 2 diabetes mellitus with hyperglycemia, with long-term current use of insulin ([facility]) Vitamin D deficiency Type 2 diabetes mellitus with diabetic neuropathy, 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 ([facility]) Type 2 diabetes mellitus with foot ulcer, with long-term current use of insulin ([facility]) Stage 3a chronic kidney disease (HCC) ([facility]) Neurogenic bladder Neurogenic bladder, NOS Visual impairment Unspecified visual loss Herpes simplex vulvovaginitis- Primary Primary hypertension ([facility])- Primary Unspecified essential hypertension Type 2 diabetes mellitus with hyperglycemia, with long-term current use of insulin ([facility]) Stage 3 chronic kidney disease, unspecified whether stage 3a or 3b CKD (HCC) ([facility]) Stage 3a chronic kidney disease (HCC) ([facility]) Urinary incontinence without sensory awareness Incontinence without sensory awareness Continuous leakage of urine Continuous leakage Primary hypertension ([facility])- Primary Unspecified essential hypertension Acute cystitis without hematuria Type 2 diabetes mellitus with diabetic neuropathy, unspecified whether alf insulin use ([facility]) UTI symptoms Stage 3a chronic kidney disease (HCC) ([facility]) Neurogenic bladder Neurogenic bladder, NOS Type 2 diabetes mellitus with hyperglycemia, with long-term current use of insulin ([facility]) Essential (primary) hypertension ([facility]) Unspecified essential hypertension Chronic cough- Primary Cough Type 2 diabetes mellitus with diabetic chronic kidney disease ([facility]/HCC) Chronic kidney disease, stage 3b (HCC) ([facility]/HCC) Hyperparathyroidism, unspecified ([facility]/HCC) Hyperparathyroidism, unspecified Rheumatoid arthritis, unspecified ([facility]) Malignant neoplasm of cervix uteri, unspecified ([facility]) Type 2 diabetes mellitus with hyperglycemia, with long-term current use of insulin ([facility]) Type 2 diabetes mellitus with hyperglycemia, with long-term current use of insulin ([facility]/HCC)- Primary Type 2 diabetes mellitus with diabetic chronic kidney disease ([facility]) Chronic kidney disease, stage 3b (HCC) ([facility]) Hyperparathyroidism, unspecified ([facility]) Hyperparathyroidism, unspecified Malignant neoplasm of cervix uteri, unspecified ([facility]) Rheumatoid arthritis, unspecified ([facility]) Essential (primary) hypertension ([facility]) Unspecified essential hypertension 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 Iron deficiency anemia, unspecified iron deficiency anemia type Primary hypertension ([facility]) Unspecified essential hypertension Type 2 diabetes mellitus with diabetic neuropathy, 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 ([facility]) RSD (reflex sympathetic dystrophy) Unspecified reflex sympathetic dystrophy Continuous leakage of urine Continuous leakage 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, left, sequela ([facility]) Skin lesion of face Unspecified disorder of skin and subcutaneous tissue [facility] Diagnosis Chronic cough- Primary Cough Type 2 diabetes mellitus with diabetic chronic kidney disease (HCC) ([facility]) Chronic kidney disease, stage 3b (HCC) ([facility]) Hyperparathyroidism, unspecified ([facility]) Hyperparathyroidism, unspecified Rheumatoid arthritis, unspecified ([facility]) Malignant neoplasm of cervix uteri, unspecified ([facility]) Type 2 diabetes mellitus with hyperglycemia, with long-term current use of insulin ([facility]) documented [facility]* Diagnosis Chronic cough- Primary Cough documented [facility]* Diagnosis Nausea and vomiting, unspecified vomiting type- Primary [facility]* Diagnosis Reflex sympathetic dystrophy of right upper extremity [facility] Diagnosis Encounter for subsequent annual wellness visit (AWV) in Medicare patient- Primary Age related osteoporosis, unspecified pathological fracture presence ([facility]) Stage 3 chronic kidney disease, unspecified whether stage 3a or 3b CKD (HCC) ([facility]) Primary hypertension ([facility]) Unspecified essential hypertension Type 2 diabetes mellitus with hyperglycemia, with long-term current use of insulin ([facility]) Vitamin D deficiency Type 2 diabetes mellitus with diabetic neuropathy, 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 ([facility]) Type 2 diabetes mellitus with foot ulcer, with long-term current use of insulin ([facility]) Stage 3a chronic kidney disease (HCC) ([facility]) Neurogenic bladder Neurogenic bladder, NOS Visual impairment Unspecified visual loss Herpes simplex vulvovaginitis- Primary Primary hypertension ([facility])- Primary Unspecified essential hypertension Type 2 diabetes mellitus with hyperglycemia, with long-term current use of insulin ([facility]) Stage 3 chronic kidney disease, unspecified whether stage 3a or 3b CKD (HCC) ([facility]) Stage 3a chronic kidney disease (HCC) ([facility]) Urinary incontinence without sensory awareness Incontinence without sensory awareness Continuous leakage of urine Continuous leakage Primary hypertension ([facility])- Primary Unspecified essential hypertension Acute cystitis without hematuria Type 2 diabetes mellitus with diabetic neuropathy, 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 ([facility]) UTI symptoms Stage 3a chronic kidney disease (HCC) ([facility]) Neurogenic bladder Neurogenic bladder, NOS Type 2 diabetes mellitus with hyperglycemia, with long-term current use of insulin ([facility]) Essential (primary) hypertension ([facility]) Unspecified essential hypertension Chronic cough- Primary Cough Type 2 diabetes mellitus with diabetic chronic kidney disease ([facility]) Chronic kidney disease, stage 3b (HCC) ([facility]) Hyperparathyroidism, unspecified ([facility]) Hyperparathyroidism, unspecified Rheumatoid arthritis, unspecified ([facility]) Malignant neoplasm of cervix uteri, unspecified ([facility]) Type 2 diabetes mellitus with hyperglycemia, with long-term current use of insulin ([facility]) Type 2 diabetes mellitus with hyperglycemia, with long-term current use of insulin ([facility])- Primary Type 2 diabetes mellitus with diabetic chronic kidney disease ([facility]) Chronic kidney disease, stage 3b (HCC) ([facility]) Hyperparathyroidism, unspecified ([facility]) Hyperparathyroidism, unspecified Malignant neoplasm of cervix uteri, unspecified ([facility]) Rheumatoid arthritis, unspecified ([facility]) Essential (primary) hypertension ([facility]) Unspecified essential hypertension 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 Iron deficiency anemia, unspecified iron deficiency anemia type Primary hypertension ([facility]) Unspecified essential hypertension Type 2 diabetes mellitus with diabetic neuropathy, 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 ([facility]) RSD (reflex sympathetic dystrophy) Unspecified reflex sympathetic dystrophy Continuous leakage of urine Continuous leakage 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, left, sequela ([facility]) Skin lesion of face Unspecified disorder of skin and subcutaneous tissue Essential (primary) hypertension (CMS/HCC)- Primary Unspecified essential hypertension Type 2 diabetes mellitus with diabetic neuropathy, 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 ([facility]) Chronic kidney disease, stage 4 (severe) ([facility]) Neurogenic bladder Neurogenic bladder, NOS Type 2 diabetes mellitus with hyperglycemia, with long-term current use of insulin ([facility]) Other chest pain Continuous leakage of urine Continuous leakage documented in this encounter [facility]* Diagnosis Onset Date Resolution Status Admit Date Anemia of renal disease acute J anuary 2024 11:12am B12 deficiency acute September 042024 11:12am CKD stage 3b, GFR 30-44 ml/min acute September 04, 2024 11:12am 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 acute [facility] 2024 11:12am Hyperkalemia acute August 11:12am Hyperparathyroidism acute 2024 11:12am Hypertensive nephropathy acute September 04, 2024 11:12am Hypomagnesemia acute September 042024 11:12am Iron deficiency anemia acute [facility] 2024 11:12am Neurogenic bladder acute 2024 11:12am Renal cyst acute September 04, 2024 11:12am Vitamin D toxicity acute 2024 11:12am [facility] Work Phone: Evaluation note* Diagnosis Encounter for subsequent annual wellness visit (AWV) in Medicare patient- Primary Age related osteoporosis, unspecified pathological fracture presence ([facility]) Stage 3 chronic kidney disease, unspecified whether stage 3a or 3b CKD (HCC) ([facility]) Primary hypertension ([facility]) Unspecified essential hypertension Type 2 diabetes mellitus with hyperglycemia, with long-term current use of insulin ([facility]) Vitamin D deficiency Type 2 diabetes mellitus with diabetic neuropathy, 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 ([facility]) Type 2 diabetes mellitus with foot ulcer, with long-term current use of insulin ([facility]) Stage 3a chronic kidney disease (HCC) ([facility] Neurogenic bladder Neurogenic bladder, NOS Visual impairment Unspecified visual loss Herpes simplex vulvovaginitis- Primary Primary hypertension ([facility] [place] Primary Unspecified essential hypertension Type 2 diabetes mellitus with hyperglycemia, with long-term current use of insulin ([facility] [place]) Stage 3 chronic kidney disease, unspecified whether stage 3a or 3b CKD (HCC) ([facility] [place]) Stage 3a chronic kidney disease (HCC) ([facility] [place]) Urinary incontinence without sensory awareness Incontinence without sensory awareness Continuous leakage of urine Continuous leakage Primary hypertension ([facility] [place] Primary Unspecified essential hypertension Acute cystitis without hematuria Type 2 diabetes mellitus with diabetic neuropathy, unspecified whether alf insulin use ([facility] [place]) UTI symptoms Stage 3a chronic kidney disease (HCC) ([facility] [place]) Neurogenic bladder Neurogenic bladder, NOS Type 2 diabetes mellitus with hyperglycemia, with long-term current use of insulin ([facility] [place]) Essential (primary) hypertension ([facility] [place]) Unspecified essential hypertension Chronic cough- Primary Cough Type 2 diabetes mellitus with diabetic chronic kidney disease ([facility] [place]) Chronic kidney disease, stage 3b (HCC) ([facility] [place]) Hyperparathyroidism, unspecified ([facility] [place]) Hyperparathyroidism, unspecified Rheumatoid arthritis, unspecified ([facility] [place]) Malignant neoplasm of cervix uteri, unspecified ([facility] [place]) Type 2 diabetes mellitus with hyperglycemia, with long-term current use of insulin ([facility] [place]) Type 2 diabetes mellitus with hyperglycemia, with long-term current use of insulin ([facility] [place] Primary Type 2 diabetes mellitus with diabetic chronic kidney disease ([facility] [place]) Chronic kidney disease, stage 3b (HCC) ([facility] [place]) Hyperparathyroidism, unspecified ([facility] [place]) Hyperparathyroidism, unspecified Malignant neoplasm of cervix uteri, unspecified ([facility] [place]) Rheumatoid arthritis, unspecified ([facility] [place]) Essential (primary) hypertension ([facility] [place]) Unspecified essential hypertension 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 Iron deficiency anemia, unspecified iron deficiency anemia type Primary hypertension ([facility] [place]) Unspecified essential hypertension Type 2 diabetes mellitus with diabetic neuropathy, unspecified whether alf insulin use ([facility] [place]) RSD (reflex sympathetic dystrophy) Unspecified reflex sympathetic dystrophy Continuous leakage of urine Continuous leakage 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, left, sequela ([facility] [place]) Skin lesion of face Unspecified disorder of skin and subcutaneous tissue Essential (primary) hypertension ([facility] [place] Primary Unspecified essential hypertension Type 2 diabetes mellitus with diabetic neuropathy, unspecified whether alf insulin use ([facility] [place]) Chronic kidney disease, stage 4 (severe) ([facility] [place]) Neurogenic bladder Neurogenic bladder, NOS Type 2 diabetes mellitus with hyperglycemia, with long-term current use of insulin ([facility] [place]) Other chest pain Continuous leakage of urine Continuous leakage Type 2 diabetes mellitus with diabetic neuropathy, with long-term current use of insulin ([facility] [place] Primary Malignant neoplasm of cervix uteri, unspecified ([facility] [place]) Rheumatoid arthritis, unspecified ([facility] [place]) Essential (primary) hypertension ([facility] [place]) Unspecified essential hypertension Chronic kidney disease, stage 4 (severe) ([facility] [place]) Neurogenic bladder Neurogenic bladder, NOS Type 2 diabetes mellitus with hyperglycemia, with long-term current use of insulin ([facility] [place]) Immunodeficiency due to conditions classified elsewhere ([facility] [place]) FPC (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 ([facility] [place]) documented in this encounter [facility] HealthcareEvaluation note* Diagnosis Complex regional pain syndrome type 1 of right upper extremity- Primary [facility] Diagnosis Reflex sympathetic dystrophy of right upper extremity Complex regional pain syndrome type 1 of right upper extremity [facility] Diagnosis Complex regional pain syndrome type 1 of right upper extremity Reflex sympathetic dystrophy of right upper extremity [facility] Diagnosis Encounter for subsequent annual wellness visit (AWV) in Medicare patient- Primary Age related osteoporosis, unspecified pathological fracture presence ([facility] [place]) Stage 3 chronic kidney disease, unspecified whether stage 3a or 3b CKD (HCC) ([facility] [place]) Primary hypertension ([facility] [place]) Unspecified essential hypertension Type 2 diabetes mellitus with hyperglycemia, with long-term current use of insulin ([facility] [place]) Vitamin D deficiency Type 2 diabetes mellitus with diabetic neuropathy, 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 ([facility] [place]) Type 2 diabetes mellitus with foot ulcer, with long-term current use of insulin ([facility] [place]) Stage 3a chronic kidney disease (HCC) ([facility] [place]) Neurogenic bladder Neurogenic bladder, NOS Visual impairment Unspecified visual loss Herpes simplex vulvovaginitis- Primary Primary hypertension ([facility] [place])- Primary Unspecified essential hypertension Type 2 diabetes mellitus with hyperglycemia, with long-term current use of insulin ([facility] [place]) Stage 3 chronic kidney disease, unspecified whether stage 3a or 3b CKD (HCC) ([facility] [place]) Stage 3a chronic kidney disease (HCC) ([facility] [place]) Urinary incontinence without sensory awareness Incontinence without sensory awareness Continuous leakage of urine Continuous leakage Primary hypertension ([facility] [place])- Primary Unspecified essential hypertension Acute cystitis without hematuria Type 2 diabetes mellitus with diabetic neuropathy, unspecified whether alf insulin use ([facility] [place]) UTI symptoms Stage 3a chronic kidney disease (HCC) ([facility] [place]) Neurogenic bladder Neurogenic bladder, NOS Type 2 diabetes mellitus with hyperglycemia, with long-term current use of insulin ([facility] [place]) Essential (primary) hypertension ([facility] [place] Unspecified essential hypertension Chronic cough- Primary Cough Type 2 diabetes mellitus with diabetic chronic kidney disease ([facility] [place]) Chronic kidney disease, stage 3b (HCC) ([facility] [place]) Hyperparathyroidism, unspecified ([facility] [place]) Hyperparathyroidism, unspecified Rheumatoid arthritis, unspecified ([facility] [place]) Malignant neoplasm of cervix uteri, unspecified ([facility] [place]) Type 2 diabetes mellitus with hyperglycemia, with long-term current use of insulin ([facility] [place]) Type 2 diabetes mellitus with hyperglycemia, with long-term current use of insulin ([facility] [place] Primary Type 2 diabetes mellitus with diabetic chronic kidney disease ([facility] [place]) Chronic kidney disease, stage 3b (HCC) ([facility] [place]) Hyperparathyroidism, unspecified ([facility] [place]) Hyperparathyroidism, unspecified Malignant neoplasm of cervix uteri, unspecified ([facility] [place]) Rheumatoid arthritis, unspecified ([facility] [place]) Essential (primary) hypertension ([facility] [place]) Unspecified essential hypertension 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 Iron deficiency anemia, unspecified iron deficiency anemia type Primary hypertension ([facility] [place]) Unspecified essential hypertension Type 2 diabetes mellitus with diabetic neuropathy, unspecified whether alf insulin use ([facility] [place]) RSD (reflex sympathetic dystrophy) Unspecified reflex sympathetic dystrophy Continuous leakage of urine Continuous leakage 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, left, sequela ([facility] [place]) Skin lesion of face Unspecified disorder of skin and subcutaneous tissue Essential (primary) hypertension ([facility] [place])- Primary Unspecified essential hypertension Type 2 diabetes mellitus with diabetic neuropathy, 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 ([facility] [place]) Chronic kidney disease, stage 4 (severe) ([facility] [place]) Neurogenic bladder Neurogenic bladder, NOS Type 2 diabetes mellitus with hyperglycemia, with long-term current use of insulin ([facility] [place]) Other chest pain Continuous leakage of urine Continuous leakage Type 2 diabetes mellitus with diabetic neuropathy, with long-term current use of insulin ([facility] [place])- Primary Malignant neoplasm of cervix uteri, unspecified ([facility] [place]) Rheumatoid arthritis, unspecified ([facility] [place]) Essential (primary) hypertension ([facility] [place]) Unspecified essential hypertension Chronic kidney disease, stage 4 (severe) ([facility] [place]) Neurogenic bladder Neurogenic bladder, NOS Type 2 diabetes mellitus with hyperglycemia, with long-term current use of insulin ([facility] [place]) Immunodeficiency due to conditions classified elsewhere ([facility] [place]) planning coordinator (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 ([facility] [place] Encounter for subsequent annual wellness visit (AWV) in Medicare patient- Primary Type 2 diabetes mellitus with diabetic neuropathy, with long-term current use of insulin ([facility] [place]) Essential (primary) hypertension ([facility] [place]) Unspecified essential hypertension Chronic kidney disease, stage 4 (severe) ([facility] [place]) Type 2 diabetes mellitus with hyperglycemia, with long-term current use of insulin ([facility] [place]) Mixed hyperlipidemia ([facility] [place]) Mixed hyperlipidemia Non compliance w medication regimen Type 2 diabetes mellitus with hyperglycemia, with long-term current use of insulin ([facility] [place])- Primary documented in this encounter [facility]* Diagnosis Encounter for subsequent annual wellness visit (AWV) in Medicare patient- Primary Age related osteoporosis, unspecified pathological fracture presence ([facility] [place]) Stage 3 chronic kidney disease, unspecified whether stage 3a or 3b CKD (HCC) ([facility] [place]) Primary hypertension ([facility] [place]) Unspecified essential hypertension Type 2 diabetes mellitus with hyperglycemia, with long-term current use of insulin ([facility] [place]) Vitamin D deficiency Type 2 diabetes mellitus with diabetic neuropathy, unspecified whether alf insulin use ([facility] [place]) Type 2 diabetes mellitus with foot ulcer, with long-term current use of insulin ([facility] [place]) Stage 3a chronic kidney disease (HCC) ([facility] [place]) Neurogenic bladder Neurogenic bladder, NOS Visual impairment Unspecified visual loss Herpes simplex vulvovaginitis- Primary Primary hypertension ([facility] [place])- Primary Unspecified essential hypertension Type 2 diabetes mellitus with hyperglycemia, with long-term current use of insulin ([facility] [place]) Stage 3 chronic kidney disease, unspecified whether stage 3a or 3b CKD (HCC) ([facility] [place] Stage 3a chronic kidney disease (HCC) ([facility] [place]) Urinary incontinence without sensory awareness Incontinence without sensory awareness Continuous leakage of urine Continuous leakage Primary hypertension ([facility] [place])- Primary Unspecified essential hypertension Acute cystitis without hematuria Type 2 diabetes mellitus with diabetic neuropathy, 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 ([facility] [place]) UTI symptoms Stage 3a chronic kidney disease (HCC) ([facility] [place]) Neurogenic bladder Neurogenic bladder, NOS Type 2 diabetes mellitus with hyperglycemia, with long-term current use of insulin ([facility] [place]) Essential (primary) hypertension ([facility] [place]) Unspecified essential hypertension Chronic cough- Primary Cough Type 2 diabetes mellitus with diabetic chronic kidney disease ([facility] [place]) Chronic kidney disease, stage 3b (HCC) ([facility] [place]) Hyperparathyroidism, unspecified ([facility] [place]) Hyperparathyroidism, unspecified Rheumatoid arthritis, unspecified ([facility] [place]) Malignant neoplasm of cervix uteri, unspecified ([facility] [place]) Type 2 diabetes mellitus with hyperglycemia, with long-term current use of insulin ([facility] [place]) Type 2 diabetes mellitus with hyperglycemia, with long-term current use of insulin ([facility] [place] Primary Type 2 diabetes mellitus with diabetic chronic kidney disease ([facility] [place]) Chronic kidney disease, stage 3b (HCC) ([facility] [place]) Hyperparathyroidism, unspecified ([facility] [place]) Hyperparathyroidism, unspecified Malignant neoplasm of cervix uteri, unspecified ([facility] [place]) Rheumatoid arthritis, unspecified ([facility] [place]) Essential (primary) hypertension ([facility] [place]) Unspecified essential hypertension 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 Iron deficiency anemia, unspecified iron deficiency anemia type Primary hypertension ([facility] [place]) Unspecified essential hypertension Type 2 diabetes mellitus with diabetic neuropathy, 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 ([facility] [place]) RSD (reflex sympathetic dystrophy) Unspecified reflex sympathetic dystrophy Continuous leakage of urine Continuous leakage 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, left, sequela ([facility] [place]) Skin lesion of face Unspecified disorder of skin and subcutaneous tissue Essential (primary) hypertension ([facility] [place])- Primary Unspecified essential hypertension Type 2 diabetes mellitus with diabetic neuropathy, unspecified whether alf insulin use ([facility] [place]) Chronic kidney disease, stage 4 (severe) ([facility] [place]) Neurogenic bladder Neurogenic bladder, NOS Type 2 diabetes mellitus with hyperglycemia, with long-term current use of insulin ([facility] [place]) Other chest pain Continuous leakage of urine Continuous leakage Type 2 diabetes mellitus with diabetic neuropathy, with long-term current use of insulin ([facility] [place])- Primary Malignant neoplasm of cervix uteri, unspecified ([facility] [place]) Rheumatoid arthritis, unspecified ([facility] [place]) Essential (primary) hypertension ([facility] [place]) Unspecified essential hypertension Chronic kidney disease, stage 4 (severe) ([facility] [place]) Neurogenic bladder Neurogenic bladder, NOS Type 2 diabetes mellitus with hyperglycemia, with long-term current use of insulin ([facility] [place]) Immunodeficiency due to conditions classified elsewhere ([facility] [place]) FPC (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 ([facility] [place]) Encounter for subsequent annual wellness visit (AWV) in Medicare patient- Primary Type 2 diabetes mellitus with diabetic neuropathy, with long-term current use of insulin ([facility] [place]) Essential (primary) hypertension ([facility] [place]) Unspecified essential hypertension Chronic kidney disease, stage 4 (severe) ([facility] [place] Type 2 diabetes mellitus with hyperglycemia, with long-term current use of insulin ([facility] [place]) Mixed hyperlipidemia ([facility] [place]) Mixed hyperlipidemia Non compliance w medication regimen Right foot pain- Primary Pain in soft tissues of limb documented in this encounter [facility] HealthcareEvaluation note* Diagnosis Encounter for subsequent annual wellness visit (AWV) in Medicare patient- Primary Age related osteoporosis, unspecified pathological fracture presence ([facility] [place] Stage 3 chronic kidney disease, unspecified whether stage 3a or 3b CKD (HCC) ([facility] [place] Primary hypertension ([facility] [place]) Unspecified essential hypertension Type 2 diabetes mellitus with hyperglycemia, with long-term current use of insulin ([facility] [place]) Vitamin D deficiency Type 2 diabetes mellitus with diabetic neuropathy, unspecified whether alf insulin use ([facility] [place]) Type 2 diabetes mellitus with foot ulcer, with long-term current use of insulin ([facility] [place]) Stage 3a chronic kidney disease (HCC) ([facility] [place]) Neurogenic bladder Neurogenic bladder, NOS Visual impairment Unspecified visual loss Herpes simplex vulvovaginitis- Primary Primary hypertension ([facility] [place])- Primary Unspecified essential hypertension Type 2 diabetes mellitus with hyperglycemia, with long-term current use of insulin ([facility] [place]) Stage 3 chronic kidney disease, unspecified whether stage 3a or 3b CKD (HCC) ([facility] [place]) Stage 3a chronic kidney disease (HCC) ([facility] [place] Urinary incontinence without sensory awareness Incontinence without sensory awareness Continuous leakage of urine Continuous leakage Primary hypertension ([facility] [place] Primary Unspecified essential hypertension Acute cystitis without hematuria Type 2 diabetes mellitus with diabetic neuropathy, unspecified whether alf insulin use ([facility] [place]) UTI symptoms Stage 3a chronic kidney disease (HCC) ([facility] [place]) Neurogenic bladder Neurogenic bladder, NOS Type 2 diabetes mellitus with hyperglycemia, with long-term current use of insulin ([facility] [place]) Essential (primary) hypertension ([facility] [place]) Unspecified essential hypertension Chronic cough- Primary Cough Type 2 diabetes mellitus with diabetic chronic kidney disease ([facility] [place]) Chronic kidney disease, stage 3b (HCC) [place] [place] Hyperparathyroidism, unspecified ([facility] [place]) Hyperparathyroidism, unspecified Rheumatoid arthritis, unspecified Malignant neoplasm of cervix uteri, unspecified Type 2 diabetes mellitus with hyperglycemia, with long-term current use of insulin ([facility] [place]) Type 2 diabetes mellitus with hyperglycemia, with long-term current use of insulin ([facility] [place] Primary Type 2 diabetes mellitus with diabetic chronic kidney disease ([facility] [place]) Chronic kidney disease, stage 3b (HCC) ([facility] [place] Hyperparathyroidism, unspecified ([facility] [place]) Hyperparathyroidism, unspecified Malignant neoplasm of cervix uteri, unspecified Rheumatoid arthritis, unspecified Essential (primary) hypertension ([facility] [place]) Unspecified essential hypertension 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 Iron deficiency anemia, unspecified iron deficiency anemia type Primary hypertension ([facility] [place]) Unspecified essential hypertension Type 2 diabetes mellitus with diabetic neuropathy, 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 ([facility] [place]) RSD (reflex sympathetic dystrophy) Unspecified reflex sympathetic dystrophy Continuous leakage of urine Continuous leakage 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, left, sequela Skin lesion of face Unspecified disorder of skin and subcutaneous tissue Essential (primary) hypertension ([facility] [place] Primary Unspecified essential hypertension Type 2 diabetes mellitus with diabetic neuropathy, 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 ([facility] [place]) Chronic kidney disease, stage 4 (severe) ([facility] [place]) Neurogenic bladder Neurogenic bladder, NOS Type 2 diabetes mellitus with hyperglycemia, with long-term current use of insulin ([facility] [place]) Other chest pain Continuous leakage of urine Continuous leakage Type 2 diabetes mellitus with diabetic neuropathy, with long-term current use of insulin ([facility] [place] Primary Malignant neoplasm of cervix uteri, unspecified Rheumatoid arthritis, unspecified Essential (primary) hypertension ([facility] [place]) Unspecified essential hypertension Chronic kidney disease, stage 4 (severe) ([facility] [place]) Neurogenic bladder Neurogenic bladder, NOS Type 2 diabetes mellitus with hyperglycemia, with long-term current use of insulin ([facility] [place] Immunodeficiency due to conditions classified elsewhere ([facility] [place]) FPC (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 ([facility] [place]) Encounter for subsequent annual wellness visit (AWV) in Medicare patient- Primary Type 2 diabetes mellitus with diabetic neuropathy, with long-term current use of insulin ([facility] [place] Essential (primary) hypertension ([facility] [place]) Unspecified essential hypertension Chronic kidney disease, stage 4 (severe) ([facility] [place]) Type 2 diabetes mellitus with hyperglycemia, with long-term current use of insulin ([facility] [place]) Mixed hyperlipidemia ([facility] [place]) Mixed hyperlipidemia Non compliance w medication regimen Encounter for subsequent annual wellness visit (AWV) in Medicare patient- Primary RSD (reflex sympathetic dystrophy) Unspecified reflex sympathetic dystrophy Type 2 diabetes mellitus with diabetic neuropathy, with long-term current use of insulin ([facility] [place]) Essential (primary) hypertension ([facility] [place]) Unspecified essential hypertension Chronic kidney disease, stage 4 (severe) ([facility] [place]) Type 2 diabetes mellitus with hyperglycemia, with long-term current use of insulin ([facility] [place] FPC (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 ([facility] [place]) Non compliance w medication regimen Right foot pain Pain in soft tissues of limb Chest pain, unspecified type Continuous leakage of urine Continuous leakage Neurogenic bladder Neurogenic bladder, NOS documented in [facility] encounter [facility] Diagnosis Encounter for subsequent annual wellness visit (AWV) in Medicare patient- Primary Age related osteoporosis, unspecified pathological fracture presence ([facility] [place]) Stage 3 chronic kidney disease, unspecified whether stage 3a or 3b CKD (HCC) ([facility] [place]) Primary hypertension ([facility] [place]) Unspecified essential hypertension Type 2 diabetes mellitus with hyperglycemia, with long-term current use of insulin ([facility] [place]) Vitamin D deficiency Type 2 diabetes mellitus with diabetic neuropathy, unspecified whether alf insulin use ([facility] [place]) Type 2 diabetes mellitus with foot ulcer, with long-term current use of insulin ([facility] [place]) Stage 3a chronic kidney disease (HCC) ([facility] [place]) Neurogenic bladder Neurogenic bladder, NOS Visual impairment Unspecified visual loss Herpes simplex vulvovaginitis- Primary Primary hypertension ([facility] [place])- Primary Unspecified essential hypertension Type 2 diabetes mellitus with hyperglycemia, with long-term current use of insulin ([facility] [place]) Stage 3 chronic kidney disease, unspecified whether stage 3a or 3b CKD (HCC) ([facility] [place]) Stage 3a chronic kidney disease (HCC) ([facility] [place]) Urinary incontinence without sensory awareness Incontinence without sensory awareness Continuous leakage of urine Continuous leakage Primary hypertension ([facility] [place] Primary Unspecified essential hypertension Acute cystitis without hematuria Type 2 diabetes mellitus with diabetic neuropathy, 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 ([facility] [place]) UTI symptoms Stage 3a chronic kidney disease (HCC) ([facility] [place]) Neurogenic bladder Neurogenic bladder, NOS Type 2 diabetes mellitus with hyperglycemia, with long-term current use of insulin ([facility] [place]) Essential (primary) hypertension ([facility] [place]) Unspecified essential hypertension Chronic cough- Primary Cough Type 2 diabetes mellitus with diabetic chronic kidney disease ([facility] [place]) Chronic kidney disease, stage 3b (HCC) ([facility] [place]) Hyperparathyroidism, unspecified ([facility] [place]) Hyperparathyroidism, unspecified Rheumatoid arthritis, unspecified Malignant neoplasm of cervix uteri, unspecified Type 2 diabetes mellitus with hyperglycemia, with long-term current use of insulin ([facility] [place]) Type 2 diabetes mellitus with hyperglycemia, with long-term current use of insulin ([facility] [place] Primary Type 2 diabetes mellitus with diabetic chronic kidney disease ([facility] [place]) Chronic kidney disease, stage 3b (HCC) ([facility] [place]) Hyperparathyroidism, unspecified ([facility] [place]) Hyperparathyroidism, unspecified Malignant neoplasm of cervix uteri, unspecified Rheumatoid arthritis, unspecified Essential (primary) hypertension ([facility] [place]) Unspecified essential hypertension 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 Iron deficiency anemia, unspecified iron deficiency anemia type Primary hypertension ([facility] [place]) Unspecified essential hypertension Type 2 diabetes mellitus with diabetic neuropathy, 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 ([facility] [place]) RSD (reflex sympathetic dystrophy) Unspecified reflex sympathetic dystrophy Continuous leakage of urine Continuous leakage 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, left, sequela Skin lesion of face Unspecified disorder of skin and subcutaneous tissue Essential (primary) hypertension ([facility] [place])- Primary Unspecified essential hypertension Type 2 diabetes mellitus with diabetic neuropathy, unspecified whether alf insulin use ([facility] [place]) Chronic kidney disease, stage 4 (severe) ([facility] [place]) Neurogenic bladder Neurogenic bladder, NOS Type 2 diabetes mellitus with hyperglycemia, with long-term current use of insulin ([facility] [place]) Other chest pain Continuous leakage of urine Continuous leakage Type 2 diabetes mellitus with diabetic neuropathy, with long-term current use of insulin [facility] Primary Malignant neoplasm of cervix uteri, unspecified Rheumatoid arthritis, unspecified Essential (primary) hypertension ([facility] [place]) Unspecified essential hypertension Chronic kidney disease, stage 4 (severe) ([facility] [place] Neurogenic bladder Neurogenic bladder, NOS Type 2 diabetes mellitus with hyperglycemia, with long-term current use of insulin ([facility] [place]) Immunodeficiency due to conditions classified elsewhere ([facility] [place]) planning coordinator (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 ([facility] [place]) Encounter for subsequent annual wellness visit (AWV) in Medicare patient- Primary Type 2 diabetes mellitus with diabetic neuropathy, with long-term current use of insulin ([facility] [place]) Essential (primary) hypertension ([facility] [place]) Unspecified essential hypertension Chronic kidney disease, stage 4 (severe) ([facility] [place]) Type 2 diabetes mellitus with hyperglycemia, with long-term current use of insulin ([facility] [place]) Mixed hyperlipidemia ([facility] [place]) Mixed hyperlipidemia Non compliance w medication regimen Encounter for subsequent annual wellness visit (AWV) in Medicare patient- Primary RSD (reflex sympathetic dystrophy) Unspecified reflex sympathetic dystrophy Type 2 diabetes mellitus with diabetic neuropathy, with long-term current use of insulin ([facility] [place] Essential (primary) hypertension ([facility] [place]) Unspecified essential hypertension Chronic kidney disease, stage 4 (severe) ([facility] [place]) Type 2 diabetes mellitus with hyperglycemia, with long-term current use of insulin ([facility] [place] FPC (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 ([facility] [place]) Non compliance w medication regimen Right foot pain Pain in soft tissues of limb Chest pain, unspecified type Continuous leakage of urine Continuous leakage Neurogenic bladder Neurogenic bladder, NOS Acute renal failure, unspecified acute renal failure type ([facility] [place] Primary Chronic kidney disease, stage 4 (severe) ([facility] [place]) Essential (primary) hypertension ([facility] [place]) Unspecified essential hypertension Type 2 diabetes mellitus with diabetic neuropathy, with long-term current use of insulin ([facility] [place]) History of neurogenic bladder Type 2 diabetes mellitus with hyperglycemia, with long-term current use of insulin ([facility] [place] planning coordinator (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 ([facility] [place]) Non compliance w medication regimen Memory impairment Memory loss Cellulitis of right foot- Primary Laceration of right foot with foreign body, initial encounter Diabetes mellitus due to underlying condition with diabetic polyneuropathy, with long-term current use of insulin ([facility] [place]) documented in this encounter [facility] Healthcare[facility]* Diagnosis Encounter for subsequent annual wellness visit (AWV) in Medicare patient- Primary Age related osteoporosis, unspecified pathological fracture presence ([facility] [place]) Stage 3 chronic kidney disease, unspecified whether stage 3a or 3b CKD (HCC) ([facility] [place]) Primary hypertension ([facility] [place]) Unspecified essential hypertension Type 2 diabetes mellitus with hyperglycemia, with long-term current use of insulin ([facility] [place]) Vitamin D deficiency Type 2 diabetes mellitus with diabetic neuropathy, unspecified whether alf insulin use ([facility] [place]) Type 2 diabetes mellitus with foot ulcer, with long-term current use of insulin ([facility] [place]) Stage 3a chronic kidney disease (HCC) ([facility] [place]) Neurogenic bladder Neurogenic bladder, NOS Visual impairment Unspecified visual loss Herpes simplex vulvovaginitis- Primary Primary hypertension ([facility] [place])- Primary Unspecified essential hypertension Type 2 diabetes mellitus with hyperglycemia, with long-term current use of insulin ([facility] [place]) Stage 3 chronic kidney disease, unspecified whether stage 3a or 3b CKD (HCC) ([facility] [place]) Stage 3a chronic kidney disease (HCC) ([facility] [place]) Urinary incontinence without sensory awareness Incontinence without sensory awareness Continuous leakage of urine Continuous leakage Primary hypertension ([facility] [place] Primary Unspecified essential hypertension Acute cystitis without hematuria Type 2 diabetes mellitus with diabetic neuropathy, 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 ([facility] [place]) UTI symptoms Stage 3a chronic kidney disease (HCC) ([facility] [place]) Neurogenic bladder Neurogenic bladder, NOS Type 2 diabetes mellitus with hyperglycemia, with long-term current use of insulin ([facility] [place]) Essential (primary) hypertension ([facility] [place]) Unspecified essential hypertension Chronic cough- Primary Cough Type 2 diabetes mellitus with diabetic chronic kidney disease ([facility] [place]) Chronic kidney disease, stage 3b (HCC) ([facility] [place]) Hyperparathyroidism, unspecified ([facility] [place]) Hyperparathyroidism, unspecified Rheumatoid arthritis, unspecified Malignant neoplasm of cervix uteri, unspecified Type 2 diabetes mellitus with hyperglycemia, with long-term current use of insulin ([facility] [place]) Type 2 diabetes mellitus with hyperglycemia, with long-term current use of insulin ([facility] [place] Primary Type 2 diabetes mellitus with diabetic chronic kidney disease ([facility] [place]) Chronic kidney disease, stage 3b (HCC) ([facility] [place]) Hyperparathyroidism, unspecified ([facility] [place]) Hyperparathyroidism, unspecified Malignant neoplasm of cervix uteri, unspecified Rheumatoid arthritis, unspecified Essential (primary) hypertension ([facility] [place]) Unspecified essential hypertension 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 Iron deficiency anemia, unspecified iron deficiency anemia type Primary hypertension ([facility] [place]) Unspecified essential hypertension Type 2 diabetes mellitus with diabetic neuropathy, unspecified whether alf insulin use ([facility] [place] RSD (reflex sympathetic dystrophy) Unspecified reflex sympathetic dystrophy Continuous leakage of urine Continuous leakage 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, left, sequela Skin lesion of face Unspecified disorder of skin and subcutaneous tissue Essential (primary) hypertension ([facility] [place] Primary Unspecified essential hypertension Type 2 diabetes mellitus with diabetic neuropathy, unspecified whether alf insulin use ([facility] [place]) Chronic kidney disease, stage 4 (severe) ([facility] [place]) Neurogenic bladder Neurogenic bladder, NOS Type 2 diabetes mellitus with hyperglycemia, with long-term current use of insulin ([facility] [place]) Other chest pain Continuous leakage of urine Continuous leakage Type 2 diabetes mellitus with diabetic neuropathy, with long-term current use of insulin ([facility] [place])- Primary Malignant neoplasm of cervix uteri, unspecified Rheumatoid arthritis, unspecified Essential (primary) hypertension ([facility] [place]) Unspecified essential hypertension Chronic kidney disease, stage 4 (severe) ([facility] [place]) Neurogenic bladder Neurogenic bladder, NOS Type 2 diabetes mellitus with hyperglycemia, with long-term current use of insulin ([facility] [place]) Immunodeficiency due to conditions classified elsewhere ([facility] [place]) FPC (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 ([facility] [place]) Encounter for subsequent annual wellness visit (AWV) in Medicare patient- Primary Type 2 diabetes mellitus with diabetic neuropathy, with long-term current use of insulin ([facility] [place]) Essential (primary) hypertension ([facility] [place]) Unspecified essential hypertension Chronic kidney disease, stage 4 (severe) ([facility] [place]) Type 2 diabetes mellitus with hyperglycemia, with long-term current use of insulin ([facility] [place]) Mixed hyperlipidemia ([facility] [place]) Mixed hyperlipidemia Non compliance w medication regimen Encounter for subsequent annual wellness visit (AWV) in Medicare patient- Primary RSD (reflex sympathetic dystrophy) Unspecified reflex sympathetic dystrophy Type 2 diabetes mellitus with diabetic neuropathy, with long-term current use of insulin ([facility] [place]) Essential (primary) hypertension ([facility] [place]) Unspecified essential hypertension Chronic kidney disease, stage 4 (severe) ([facility] [place]) Type 2 diabetes mellitus with hyperglycemia, with long-term current use of insulin ([facility] [place]) planning coordinator (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 ([facility] [place] Non compliance w medication regimen Right foot pain Pain in soft tissues of limb Chest pain, unspecified type Continuous leakage of urine Continuous leakage Neurogenic bladder Neurogenic bladder, NOS Acute renal failure, unspecified acute renal failure type ([facility] [place] Primary Chronic kidney disease, stage 4 (severe) ([facility] [place]) Essential (primary) hypertension ([facility] [place]) Unspecified essential hypertension Type 2 diabetes mellitus with diabetic neuropathy, with long-term current use of insulin ([facility] [place]) History of neurogenic bladder Type 2 diabetes mellitus with hyperglycemia, with long-term current use of insulin ([facility] [place]) planning coordinator (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 ([facility] [place]) Non compliance w medication regimen Memory impairment Memory loss Cellulitis of right foot- Primary Laceration of right foot with foreign body, initial encounter Diabetes mellitus due to underlying condition with diabetic polyneuropathy, with long-term current use of insulin ([facility] [place]) documented in this encounter [facility] HealthcareEvaluation note* Diagnosis Reflex sympathetic dystrophy of right upper extremity- Primary [facility] Diagnosis Reflex sympathetic dystrophy of right upper extremity Complex regional pain syndrome type 1 of right upper extremity Reflex sympathetic dystrophy of right upper extremity- Primary Reflex sympathetic dystrophy of right upper extremity [facility] Diagnosis Encounter for subsequent annual wellness visit (AWV) in Medicare patient- Primary Age related osteoporosis, unspecified pathological fracture presence ([facility]) Stage 3 chronic kidney disease, unspecified whether stage 3a or 3b CKD (HCC) ([facility]) Primary hypertension ([facility]) Unspecified essential hypertension Type 2 diabetes mellitus with hyperglycemia, with long-term current use of insulin ([facility]) Vitamin D deficiency Type 2 diabetes mellitus with diabetic neuropathy, 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 ([facility]) Type 2 diabetes mellitus with foot ulcer, with long-term current use of insulin ([facility]) Stage 3a chronic kidney disease (HCC) ([facility]) Neurogenic bladder Neurogenic bladder, NOS Visual impairment Unspecified visual loss Herpes simplex vulvovaginitis- Primary Primary hypertension ([facility] Primary Unspecified essential hypertension Type 2 diabetes mellitus with hyperglycemia, with long-term current use of insulin ([facility]) Stage 3 chronic kidney disease, unspecified whether stage 3a or 3b CKD (HCC) ([facility] Stage 3a chronic kidney disease (HCC) ([facility]) Urinary incontinence without sensory awareness Incontinence without sensory awareness Continuous leakage of urine Continuous leakage Primary hypertension ([facility] Primary Unspecified essential hypertension Acute cystitis without hematuria Type 2 diabetes mellitus with diabetic neuropathy, unspecified whether alf insulin use ([facility]) UTI symptoms Stage 3a chronic kidney disease (HCC) ([facility]) Neurogenic bladder Neurogenic bladder, NOS Type 2 diabetes mellitus with hyperglycemia, with long-term current use of insulin ([facility]) Essential (primary) hypertension ([facility]) Unspecified essential hypertension Chronic cough- Primary Cough Type 2 diabetes mellitus with diabetic chronic kidney disease ([facility]) Chronic kidney disease, stage 3b (HCC) ([facility]) Hyperparathyroidism, unspecified ([facility]) Hyperparathyroidism, unspecified Rheumatoid arthritis, unspecified Malignant neoplasm of cervix uteri, unspecified Type 2 diabetes mellitus with hyperglycemia, with long-term current use of insulin ([facility]) Type 2 diabetes mellitus with hyperglycemia, with long-term current use of insulin ([facility] Primary Type 2 diabetes mellitus with diabetic chronic kidney disease ([facility]) Chronic kidney disease, stage 3b (HCC) ([facility]) Hyperparathyroidism, unspecified ([facility]) Hyperparathyroidism, unspecified Malignant neoplasm of cervix uteri, unspecified Rheumatoid arthritis, unspecified Essential (primary) hypertension ([facility]) Unspecified essential hypertension 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 Iron deficiency anemia, unspecified iron deficiency anemia type Primary hypertension ([facility]) Unspecified essential hypertension Type 2 diabetes mellitus with diabetic neuropathy, 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 ([facility]) RSD (reflex sympathetic dystrophy) Unspecified reflex sympathetic dystrophy Continuous leakage of urine Continuous leakage 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, left, sequela Skin lesion of face Unspecified disorder of skin and subcutaneous tissue Essential (primary) hypertension ([facility] Primary Unspecified essential hypertension Type 2 diabetes mellitus with diabetic neuropathy, unspecified whether alf insulin use ([facility]) Chronic kidney disease, stage 4 (severe) ([facility]) Neurogenic bladder Neurogenic bladder, NOS Type 2 diabetes mellitus with hyperglycemia, with long-term current use of insulin ([facility]) Other chest pain Continuous leakage of urine Continuous leakage Type 2 diabetes mellitus with diabetic neuropathy, with long-term current use of insulin ([facility] Primary Malignant neoplasm of cervix uteri, unspecified Rheumatoid arthritis, unspecified Essential (primary) hypertension ([facility]) Unspecified essential hypertension Chronic kidney disease, stage 4 (severe) ([facility]) Neurogenic bladder Neurogenic bladder, NOS Type 2 diabetes mellitus with hyperglycemia, with long-term current use of insulin ([facility]) Immunodeficiency due to conditions classified elsewhere ([facility]) planning coordinator (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 ([facility]) Encounter for subsequent annual wellness visit (AWV) in Medicare patient- Primary Type 2 diabetes mellitus with diabetic neuropathy, with long-term current use of insulin ([facility]) Essential (primary) hypertension ([facility]) Unspecified essential hypertension Chronic kidney disease, stage 4 (severe) ([facility]) Type 2 diabetes mellitus with hyperglycemia, with long-term current use of insulin ([facility]) Mixed hyperlipidemia ([facility]) Mixed hyperlipidemia Non compliance w medication regimen Encounter for subsequent annual wellness visit (AWV) in Medicare patient- Primary RSD (reflex sympathetic dystrophy) Unspecified reflex sympathetic dystrophy Type 2 diabetes mellitus with diabetic neuropathy, with long-term current use of insulin ([facility]) Essential (primary) hypertension ([facility]) Unspecified essential hypertension Chronic kidney disease, stage 4 (severe) ([facility]) Type 2 diabetes mellitus with hyperglycemia, with long-term current use of insulin ([facility]) planning coordinator (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 ([facility]) Non compliance w medication regimen Right foot pain Pain in soft tissues of limb Chest pain, unspecified type Continuous leakage of urine Continuous leakage Neurogenic bladder Neurogenic bladder, NOS Acute renal failure, unspecified acute renal failure type ([facility])- Primary Chronic kidney disease, stage 4 (severe) ([facility]) Essential (primary) hypertension ([facility]) Unspecified essential hypertension Type 2 diabetes mellitus with diabetic neuropathy, with long-term current use of insulin ([facility]) History of neurogenic bladder Type 2 diabetes mellitus with hyperglycemia, with long-term current use of insulin ([facility]) planning coordinator (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 ([facility]) Non compliance w medication regimen Memory impairment Memory loss Chronic kidney disease, stage 4 (severe) ([facility])- Primary Mixed hyperlipidemia ([facility]) Mixed hyperlipidemia Essential (primary) hypertension ([facility]) Unspecified essential hypertension Burning with urination Dysuria UTI symptoms Urinary tract infection symptoms Type 2 diabetes mellitus with diabetic neuropathy, with long-term current use of insulin ([facility]) History of neurogenic bladder Neurogenic bladder Neurogenic bladder, NOS 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 Hyperparathyroidism, unspecified ([facility]) Hyperparathyroidism, unspecified B12 deficiency Type 2 diabetes mellitus with hyperglycemia, with long-term current use of insulin ([facility]) Vitamin D deficiency Hypomagnesemia Disorders of magnesium metabolism Non compliance w medication regimen Fatigue, unspecified type documented in this encounter [facility] Author Alejandro Vallejo [facility] Note Date/Time September 06, 2024 1 2:23am [facility] [address] [place] [address] Hospitalist H&P Signed Patient: Aislinn Wheeler MR#: [id number] : 1960 Acct:[id number] Age/Sex: 64 / F Adm Date: 5 Loc: Room: [address] [place] [address] Type: ADM IN Attending Dr: Alejandro Vallejo MD Copies to: MD Agusto Pabon, CORN CUTTER OPERATOR-C~ HPI DATE OF EXAMINATION: 09/06/24 CHIEF COMPLAINT: Abnormal labs HISTORY OF PRESENT ILLNESS: Ms. 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 She had a routine appointment yesterday and was asked to get admitted in the hospital for abnormal labs. She [facility]he was treated for urinary tract infection and hypokalemia. She was dischargedtoday and checked with her rail car repairman who recommended her to come to this hospital. In the ED her blood pressure was 220s of systolic lab work shows sodium of 134 and potassium of 5.7 and creatinine of 2.48 with glucose of 296 urinalysis suggestive of UTI urine culture pending patient got hyperkalemia cocktail in the ED. And a dose of ceftriaxone Review of Systems Review of Systems All other systems reviewed & are negative unless noted below or in HPI [facility] Medical History (Updated 09/05/24 @ 20:43 by Yessica Barros APRN) Hypertension CKD (chronic kidney disease) Restless leg Fibromyalgia Rheumatoid arthritis Lupus Diabetes Family History Brother Heart disease Legacy FamHx Relation: Brother(s) Hypertension Legacy FamHx Relation: Brother(s) Father Heart disease Diabetes Hypertension Cancer Legacy Famx Problem: Diagnosed with Cancer Mother Heart disease History of stroke Legacy FamHx Problem: Diagnosed with Stroke Son Heart disease Sister Hypertension Diabetes Heart disease Social History Smoking Status: Never smoker Substance Use Type: None Meds Medications and Allergies Allergies latex Allergy (Unknown, Verified 09/05/24 17:17) Unresponsive Home Medications calcitriol 0.25 mcg capsule 0.25 mcg PO 3XW #30 caps 06/05/24 [Rx Confirmed 09/04/24] cetirizine 10 mg tablet 10 mg PO DAILY PRN 06/05/24 [History Confirmed 09/04/24] ferrous sulfate 325 mg (65 mg iron) tablet 325 mg PO DAILY 06/05/24 [History Confirmed 09/04/24] ondansetron 4 mg disintegrating tablet 4 mg PO Q8HR PRN 06/05/24 [History Confirmed 09/04/24] amlodipine 5 mg tablet 5 mg PO ONCE 09/04/24 [History Confirmed 09/04/24] fluticasone propionate 50 mcg/actuation nasal spray,suspension intranasal PRN 09/04/24 [History Confirmed 09/04/24] hydrocodone 7.5 mg-acetaminophen 325 mg tablet 1 tab PO Q8HR 09/04/24 [History Confirmed 09/04/24] metoprolol succinate 50 mg tablet,extended release 24 hr 50 mg PO 09/04/24 [History Confirmed 09/04/24] pregabalin 150 mg capsule 150 mg PO Q8HR 09/04/24 [History Confirmed 09/04/24] Exam Physical Exam Vital Signs: Temp Pulse Resp BP Pulse Ox O2 Del Method 98.7 F 77 16 173/79 H 97 Room Air 09/05/24 17:17 09/05/24 23:17 09/05/24 23:17 09/05/24 23:17 09/05/24 23:17 09/05/24 23:17 Narrative: General: Awake alert, no acute distress HEENT: head atraumatic, normocephalic, moist mucous membranes Neck: supple no masses, no lymphadenopathy CVS: regular rate and rhythm, no murmurs or gallops Respiratory: clear to auscultation bilaterally, no wheezing or crackles, symmetric expansion GI: soft, nondistended, nontender, positive bowel sounds with no organomegaly Extremity: moves all extremities, no restrictions of movements, no calf tenderness Neuro: AOx3, CN II-VII intact. Moves all extremities in all planes of motion. Skin: intact no rashes or lesions Results - Hospitalist H&P Lab Results Labs: Laboratory Last Values Corrected WBC 8.4 X10E3/uL (3.8-11.6) 09/05/24 17:56 Uncorrected WBC Count 8.4 x10E3/uL (3.8-11.6) 09/05/24 17:56 RBC 3.81 x10E6/uL (3.60-5.00) 09/05/24 17:56 Hgb 10.0 g/dL (11.8-15.4) L 09/05/24 17:56 Hct 30.3 % (34.0-46.4) L 09/05/24 17:56 MCV 79.6 fl (80-100) L 09/05/24 17:56 MCH 26.2 pg (24.7-34.3) 09/05/24 17:56 MCHC 32.9 g/dL (32.0-35.0) 09/05/24 17:56 RDW 14.4 % (11.9-15.3) 09/05/24 17:56 Plt Count 254 x10E3/uL (150-450) 09/05/24 17:56 MPV 9.1 fl (6.3-10.7) 09/05/24 17:56 Neut % (Auto) 65.6 % (.) 09/05/24 17:56 Lymph % (Auto) 25.0 % (.) 09/05/24 17:56 Dewey % (Auto) 5.8 % (.) 09/05/24 17:56 Eos % (Auto) 2.2 % (.) 09/05/24 17:56 Baso % (Auto) 1.4 % (.) 09/05/24 17:56 Nucleat RBC Rel Count 0.1 /100 WBC (0-0.5) 09/05/24 17:56 Neut # (Auto) 5.5 x10E3/uL (1.8-7.7) 09/05/24 17:56 Lymph # (Auto) 2.1 x10E3/uL (1.00-4.8) 09/05/24 17:56 Dewey # (Auto) 0.5 x10E3/uL (0.0-0.8) 09/05/24 17:56 Eos # (Auto) 0.2 x10E3/uL (0.0-0.45) 09/05/24 17:56 Baso # (Auto) 0.1 x10E3/uL (0.0-0.2) 09/05/24 17:56 Monocyte Dist Width 17.62 % (0.00-20.00) 09/05/24 17:56 PHA Creatinine Clear 18.03 09/05/24 17:56 Sodium 134 mmol/L (136-145) L 09/05/24 17:56 Potassium 5.7 mmol/L (3.5-5.1) H 09/05/24 17:56 Chloride 109 mmol/L (98-107) H 09/05/24 17:56 Carbon Dioxide 18.7 mmol/L (21.0-31.0) L 09/05/24 17:56 Anion Gap 12.0 mEq/L (6.0-15.0) 09/05/24 17:56 BUN 40 mg/dL (7-25) H 09/05/24 17:56 Creatinine 2.48 mg/dL (0.60-1.20) H 09/05/24 17:56 Est GFR (CKD-EPI) 20.892 mL/Min 09/05/24 17:56 Glucose 296 mg/dL (70-100) H 09/05/24 17:56 POC Glucose 124 mg/dl 09/05/24 22:51 Calcium 8.4 mg/dL (8.6-10.3) L 09/05/24 17:56 Total Bilirubin 0.2 mg/dl (0.3-1.0) L 09/05/24 17:56 AST 14 U/L (13-39) 09/05/24 17:56 ALT 10 U/L (7-52) 09/05/24 17:56 Alkaline Phosphatase 84 U/L (34-104) 09/05/24 17:56 Total Protein 7.6 gm/dL (6.4-8.9) 09/05/24 17:56 Albumin 3.3 gm/dL (3.5-5.7) L 09/05/24 17:56 Globulin 4.3 gm/dL 09/05/24 17:56 Albumin/Globulin Ratio 0.8 09/05/24 17:56 Urine Color Dark-yellow (Yellow) A 09/05/24 18:19 Urine Appearance Cloudy (Clear) A 09/05/24 18:19 Urine pH 6.0 (5.0-9.0) 09/05/24 18:19 Ur Specific [place] 1.007 (1.001-1.030) 09/05/24 18:19 Urine Protein 70 mg/dL (Negative) H 09/05/24 18:19 Urine Glucose (UA) 300 mg/dL (Normal) H 09/05/24 18:19 Urine Ketones Negative (Negative) 09/05/24 18:19 Urine Occult Blood 1+ (Negative) H 09/05/24 18:19 Urine Nitrite Positive (Negative) H 09/05/24 18:19 Urine Bilirubin Negative (Negative) 09/05/24 18:19 Urine Urobilinogen Normal mg/dL (Normal) 09/05/24 18:19 Ur Leukocyte Esterase 4+ (Negative) H 09/05/24 18:19 Urine RBC 3-4 /HPF (0-4) 09/05/24 18:19 Urine WBC Innumerable /HPF (0-4) H 09/05/24 18:19 Urine WBC Clumps Many /LPF (None Seen) H 09/05/24 18:19 Ur Squamous Epith Cells 1-2 /HPF (0-2) 09/05/24 18:19 Urine Bacteria 4+ /HPF (None Seen) H 09/05/24 18:19 Hyaline Casts 0-8 /LPF (0-8) 09/05/24 18:19 Urine Mucus Rare /LPF 09/05/24 18:19 Assessment & Plan Assessment/Plan (1) Urinary retention: (2) ANATOLIY (acute kidney injury): (3) Hyperkalemia: (4) History of neurogenic bladder: (5) Vitamin D deficiency: (6) Iron deficiency anemia: Plan Ms. 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 She went to [facility] where she was treated for urinary tract infection and hypokalemia. She was discharged today and checked with her rail car repairman who recommended her to come to this hospital. In the ED her blood pressure was 220sof systolic lab work shows sodium of 134 and potassium of 5.7 and creatinine of 2.48 with glucose of 296 urinalysis suggestive of UTI urine culture pending patient got hyperkalemia cocktail in the ED. And a dose of ceftriaxone. Valerio was also placed in the ED for urine retention. Plan: -Admit in the floors -Follow-up morning labs -Continue on ceftriaxone and follow urine culture -Continue POA medication-amlodipine, calcitriol, cetirizine, iron tablets, fluticasone nasal spray, metoprolol, pregabalin -Started on sliding scale of 1 for history of diabetes -Knitting Demonstrator consulted -May consider urology consult for urine retention. -Renal diet Full code DVT prophylaxis with Lovenox IP vs OBS Justification Based on differential dx, clinical care plan, and risk of adverse events, if untreated, in my clinical judgement this patient requires an acute care setting as: INPATIENT because of an expectation of an over 2 midnight stay. Estimated length of stay (# of days): 3 Documented By: Alejandro Vallejo MD 09/06/24 0013 Signed By: <Electronically signed by Alejandro Vallejo MD> 09/06/24 0023 [facility] Work Phone: [facility] general Narrative - Reported* Type Description Date [...] SURGERY Hospitalization History DKA 2014 Hospitalization History [facility] 05/2022 Valuation App Other History general Narrative - Reported* Type [...] SURGERY Hospitalization History DKA 2014 Hospitalization History [facility] 05/2022 Valuation App Other Hospital course Narrative No data available for this section [facility] Hospital Discharge instructions No data available for this section [facility] InstructionsNot on filedocumented in this encounter [facility] on filedocumented in this encounter [facility] on filedocumented in this encounter [facility] on filedocumented in this encounter [facility] No data available for this section [facility] progress note Author [facility] Note Date/Time September 08, 2024 1 1:42[facility] [address] [place] [address] Nephrology Progress Note Signed Patient: Aislinn Wheeler MR#: [id number] : 1960 Acct:[id number] Age/Sex: 64 / F Adm Date: 5 Loc: Room: [address] [place] [address] Type: ADM IN Attending Dr: Gilmer Tai MD Copies to: ~ Date of Service: 09/08/2024 Subjective Subjective Narrative: Ms. Dewitt is a 64-year-old white female with history of DM2 that seems to be outof control and CKD stage IIIb with serum creatinine Paremyd between 1.3 to 1.5 mg/dL. She normally follow-up in our renal clinic with Dr. Sprague and recentlycreatinine started to increase more than 2 mg/dL. 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 Patient is known to have neurogenic bladder she uses self cath at home for quitesome time however recently she ran out of supplies. Patient was seen by Dr. Sprague in the office on 115 and had creatinine was found to be 2.7 mg/dL much higher than previous baseline, potassium 5.8 and blood pressure 210/110. Initially she went to the [place] ER on 09/04 and she had a CT scan of the abdomen that I personally reviewed the report that showed bilateral hydronephrosis to the level of the bladder neck with evidence of bladder wall thickness and urethritis. Patient stated that bladder scan was only 150 cc urine and she was able to micturate. She was started on oral antibiotics for UTI and was sent home. Patient was called again to come to [facility] as her potassium continues to be elevated 5.7 mEq/L with possibility of dialysis need. Evaluation in ER showed elevated blood pressure 210, potassium 5.7 and creatinine 2.7. Patient was treated by hyperkalemia protocol. Bladder scan showed 249 cc urine however it was not a postvoid residual. Urine analysis was suggestive of UTI, patient was started on ceftriaxone after sending urine culture. Nephrology was consulted for hyperkalemia and ANATOLIY. Interval history: Patient was not able to tolerate Valerio catheter and she is currently using intermittent cath and she is doing well. CT scan of the abdomen and bilateral ultrasound showed persistent bilateral hydronephrosis moderate to severe. Creatinine finally stabilized after using straight cath 3.08 mg/dL. She has good urine output on furosemide 40 mg twice a day. Potassium is down tosafe level 4.7 mmol/L. Urology consultation is appreciated. Patient will continue straight cath and follow-up with [facility]. Exam Physical Exam Vital Signs: Temp Pulse Resp BP Pulse Ox O2 Del Method 36.6 C 64 16 169/79 H 96 Room Air 09/08/24 08:00 09/08/24 08:00 09/08/24 08:00 09/08/24 08:00 09/08/24 08:00 09/08/24 08:00 Narrative: Constitutional: Appears comfortable and not in distress HEENT: No pallor or Jaundice Cardiovascular: RRR, normal S1-S2, no gallop or rub, No JVD Respiratory: Good bilateral air entry no wheezing or crackles Gastrointestinal: Soft, non tender, positive bowel sounds Extremities: No edema Skin: No rashes or bruises Musculoskeletal: No joints swellings or inflammation Neurology: Awake, alert, oriented ?3, No focal motor or sensory deficits Psych: Normal mood and affect Objective Intake and Output I&O: Intake & Output 09/05/24 09/06/24 09/07/24 09/08/24 23:59 23:59 23:59 23:59 Intake Total 150 / 150 1520 / 1520 450 / 450 Output Total 100 / 100 600 / 600 2125 / 2125 775 / 775 Balance -100 / -100 -450 / -450 -605 / -605 -325 / -325 Weight 59.7 kg 53.6 kg 59.5 kg 54.7 kg Meds and Allergies Meds: Active Medications Acetaminophen (Acetaminophen 500 Mg Tablet) 1,000 mg PO Q6H PRN PRN Reason: Fever or Pain Stop: 09/06/25 02:45 Last Admin: 09/06/24 08:56 Dose: 1,000 mg Hydrocodone Bitart/Acetaminophen (Hydrocodone/Acetaminophen 7.5-325mg Tablet) 1tab PO Q8HR [facility] Last Admin: 09/08/24 06:08 Dose: 1 tab Atorvastatin Calcium (Atorvastatin 20 Mg Tablet) 20 mg PO DAILY [facility] Stop: 09/07/25 08:59 Last Admin: 09/08/24 08:45 Dose: 20 mg Bethanechol Chloride (Bethanechol 10 Mg Tablet) 10 mg PO TID [facility] Stop: 09/07/25 13:59 Last Admin: 09/08/24 08:44 Dose: 10 mg Dextrose (Dextrose 50% In Water 25 Gm/50 Ml Syringe) 0 gm IV-PUSH PRN PRN PRN Reason: Hypoglycemia Stop: 09/05/25 22:01 Enoxaparin Sodium (Enoxaparin 30 Mg/0.3 Ml Syringe) 30 mg SUBCUT DAILY@1000 [facility] Stop: 09/06/25 09:59 Last Admin: 09/07/24 09:07 Dose: 30 mg Furosemide (Furosemide 40 Mg Tablet) 40 mg PO BID@0800,1600 [facility] [place] Stop: 09/06/25 15:59 Last Admin: 09/08/24 08:44 Dose: 40 mg Glucose (Dextrose 40% Gel 15 Gm Tube) 0 gm PO PRN PRN PRN Reason: Hypoglycemia Stop: 09/05/25 22:01 Hyoscyamine (Hyoscyamine Sulfate 0.125 Mg Tab.Rapdis) 0.125 mg SUBLINGUAL Q4H PRN PRN Reason: Bladder Spasms Stop: 09/06/25 02:45 Last Admin: 09/06/24 20:42 Dose: 0.125 mg Insulin Aspart (Insulin Aspart 300 Units/3 Ml) 0 units SUBCUT TID..[facility]; Protocol Stop: 09/06/25 07:59 Last Admin: 09/08/24 08:45 Dose: Not Given Insulin Glargine (Insulin Glargine 300 Units/3 Ml Insuln.Pen) 28 units SUBCUT QHS [facility] [place] Stop: 09/06/25 21:59 Last Admin: 09/07/24 21:16 Dose: 28 units Metoprolol Succinate (Metoprolol Succinate 50 Mg Tab.Er.24h) 50 mg PO DAILY [facility] [place] Stop: 09/06/25 08:59 Last Admin: 09/08/24 08:45 Dose: 50 mg Oxycodone/Acetaminophen (Oxycodone/Acetaminophen 5-325 Mg Tablet) 1 tab PO Q4H PRN PRN Reason: Pain Scale 4 - 7 Last Admin: 09/06/24 10:18 Dose: 1 tab Pregabalin (Pregabalin 75 Mg Capsule) 75 mg PO BID [facility] [place] Stop: 03/05/25 20:59 Last Admin: 09/08/24 08:52 Dose: 75 mg Sodium Bicarbonate (Sodium Bicarbonate 650 Mg Tablet) 650 mg PO TID [facility] [place] Stop: 09/06/25 19:59 Last Admin: 09/08/24 08:45 Dose: 650 mg Sodium Chloride (Sodium Chloride 0.9 % 10 Ml Syringe) 0 ml IV-PUSH PRN PRN PRN Reason: Flush Stop: 09/05/25 17:16 Last Admin: 09/06/24 01:26 Dose: 10 ml Allergies latex Allergy (Unknown, Verified 09/05/24 17:17) Unresponsive Results - Nephrology Labs 09/07/24 06:00 09/08/24 06:08 Labs: 09/08/24 06:08 BUN 53 H Creatinine 3.08 H Radiology Impressions Impressions - last 24 hours: Any impression(s) listed above is documentation that was entered by the reading physician into a diagnostic report(s) for Aislinn Wheeler. I have reviewed the report(s) and am incorporating any findings in the treatment plan of this patient where applicable. A&P - Nephrology Assessment/Plan (1) ANATOLIY (acute kidney injury): Assessment/Problem Details: She had elevated creatinine higher than the baseline with evidence of bilateral hydronephrosis and hydroureter on the CT scan of the abdomen that was done at [facility] on 05/[facility]. Renal ultrasound on 09/06/2024 showed moderate to severe bilateral hydronephrosis (2) Uropathy, obstructive: Assessment/Problem Details: Patient has evidence of obstructive uropathy on the CT scan of the abdomen as stated above resulted in ANATOLIY, hyperkalemia and metabolic acidosis (3) Hyperkalemia: Assessment/Problem Details: She has progressive hyperkalemia related to ANATOLIY and urine obstruction (4) History of neurogenic bladder: Assessment/Problem Details: Patient with history of neurogenic bladder, she used to self cath herself before. 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 (6) Diabetic nephropathy associated with type 2 diabetes mellitus: Assessment/Problem Details: Patient has longstanding history of diabetes that has been out of control with hemoglobin A1c between 11 and 12% on insulin. (7) Hypertensive nephropathy: Assessment/Problem Details: Blood pressure was elevated on admission more than 200. Plan * Renal function stabilized with a straight cath and potassium is normal. * Continue straight cath 4 times daily per Urology recommendation. Patient needs supplies secured at home. She used to do straight cath however she ran out of supplies. * Continue bethanechol 10 mg 3 times daily for neurogenic bladder. * Urology consult to address hydronephrosis and a serum creatinine still rising. Patient stated that she follow-up with urology at [facility] as well. * Continue sodium bicarb 650 mg 3 times daily. * Continue furosemide 40 mg p.o. twice a day as it will improve acidosis and hyperkalemia. Blood pressure is trending down. Amlodipine can be restarted later on if blood pressure continues to be elevated on furosemide. Patient stable from renal point to be discharged anytime. She need follow-up BMP and CBC in 5 to 7 days and follow-up with nephrology clinic. She was also advised to follow-up with urology in [facility] for long-term plan of neurogenic bladder. Patient was informed that she may need urostomy. Documented By: Akin Dougherty MD 09/08/24 1138 Signed By: <Electronically signed by MD Akin Dougherty> 09/08/24 1142 [facility] Work Phone: [facility] for referral (narrative)* Diagnostic Procedure Only (Routine) - Pending Review Specialty Diagnoses / Procedures Referred By Danny hensley Referred To Contact US IMAGING Diagnoses Kidney cyst, acquired Procedures US KIDNEY/BLADDER US RETROPERITONEAL REAL TIME W/IMAGE COMPLETE Taurus Ballard MD [facility] [place] [id number] [facility] [place] [address] Referral ID Status Reason Start Date Expiration Date Visits Requested Visits Authorized [id number] Pending Review Auto-Generat ed Referral 10/05/2023 08/03/2024 1 1 [facility] for referral (narrative)* Outpatient Procedure (Routine) - New Request Specialty Diagnoses / Procedures Referred By Danny hensley Referred To Contact [facility] Diagnoses Retention of urine BURKE (stress urinary incontinence, female) Procedures FLUROURODYNAMICS WITH EMG EMG STDS ANAL/URTL SPHNCTR OTH/THN NDL Carmenza Espinosa MD [address] [place] [address] [address] [place] [address] Referral ID Status Reason Start Date Expiration Date Visits Requested Visits Authorized [id number] New Request Auto-Generat ed Referral 03/26/2024 03/26/2025 1 1 [facility] for referral (narrative)* Consultation (Routine) - Pending Review Specialty Diagnoses / Procedures Referred By Contac t Referred To Contact Nephrology Diagnoses Hyperparathyroidism, unspecified (CMS/HCC) Stage 3a chronic kidney disease (HCC) ([facility]/HCC) Procedures [place] OFFICE/OUTPATIENT NEW HIGH MDM 60 MINUTES Agusto Olmstead NP [address] [place] [address] Tyler Valencia MD [address] [address] Referral ID Status Reason Start Date Expiration Date Visits Requested Visits Authorized [id number] Pending Review Specialty Services Required 04/16/2024 10/13/2024 1 1 Scheduling Instructions Was already seen in practice, needs to re establish [facility] for visit NarrativeReferral Agusto Olmstead, Mark Anthony pt Type 2 IDDM apt with [employer], [employer]OP [employer]IP[employer]-C, [employer] Other Summary Purpose Family History Relationship Condition [...] Documents on File Type Date Recorded 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 Expl anation Advance Directive(s) 01/17/2021 3:49 PM [...] W/WO CONTRST 1+ BODY Taurus Moore MD [address] [place] [address] [place] [address] Referral ID Status Reason Start Date Expiration Date Visits Requested Visits Authorized [id number] Pending Review Auto-Generat ed Referral 01/19/2024 02/10/2025 [...] 2024 1 1:12am Hypertensive nephropathy September 04, 2 025 11:12am Hypomagnesemia September 04, 2024 1 1:12am Iron deficiency anemia September 04 11:12am Neurogenic bladder September 04, 2024 1 1:12am Renal cyst September 04, 2024 1 1:12am Vitamin D toxicity September 04, 2024 1 1:12am Chief Complaint Admit Date RENAL 3 MONTH F/U September 04, 2024 1 1:12am sent by , kidney issues September 05, 2024 9:58pm Reason for Visit Admit Date Anemia of renal disease September 04 11:12am B12 deficiency September 04, 2024 1 1:12am CKD stage 3b, GFR 30-44 ml/min August 212024 11:12am 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 September 04, 2024 11:12am Hyperkalemia September 04, 2024 1 1:12am Hyperparathyroidism September 04, 2024 1 1:12am Hypertensive nephropathy September 04, 2 025 11:12am Hypomagnesemia September 04, 2024 1 1:12am Iron deficiency anemia September 04 11:12am Neurogenic bladder September 04, 2024 1 1:12am Renal cyst September 04, 2024 1 1:12am Vitamin D deficiency September 04, 2024 11:12am ANATOLIY (acute kidney injury) September 05, 2024 9:58pm History of neurogenic bladder September [id number] 9:58pm Hyperkalemia September 05, 2024 9 :58pm Iron deficiency anemia September 05 9:58pm Urinary retention September 05, 2024 9 :58pm Vitamin D deficiency September 05, 2024 9:58pm Chronic kidney disease September 05 9:58pm Chief Complaint Admit Date RENAL 3 MONTH F/U September 04, 2024 1 1:12am sent by , kidney issues September 05, 2024 9:58pm sent by , kidney issues September 06, 2024 10:56am Reason for Visit Admit Date Anemia of renal disease September 04 11:12am B12 deficiency September 04, 2024 1 1:12am CKD stage 3b, GFR 30-44 ml/min August 212024 11:12am 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 September 04, 2024 11:12am Hyperkalemia September 04, 2024 1 1:12am Hyperparathyroidism September 04, 2024 1 1:12am Hypertensive nephropathy September 04, 2 025 11:12am Hypomagnesemia September 04, 2024 1 1:12am Iron deficiency anemia September 04 11:12am Neurogenic bladder September 04, 2024 1 1:12am Renal cyst September 04, 2024 1 1:12am Vitamin D deficiency September 04, 2024 11:12am ANATOLIY (acute kidney injury) September 05, 2024 9:58pm 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 September 05, 2024 9:58pm History of neurogenic bladder September [id number] 9:58pm Hyperkalemia September 05, 2024 9 :58pm Hypertensive nephropathy September 05 025 9:58pm Iron deficiency anemia September 05 9:58pm Metabolic acidosis September 05, 2024 9 :58pm Urinary retention September 05, 2024 9 :58pm Uropathy, obstructive September 05, 2024 9:58pm Vitamin D deficiency September 05, 2024 9:58pm Chronic kidney disease September 05 9:58pm Chief Complaint Admit Date RENAL 3 MONTH F/U September 04, 2024 1 1:12am sent by , kidney issues September 05, 2024 9:58pm sent by , kidney issues September 06, 2024 10:56am sent by November 23, 2024 6:09 pm Reason for Visit Admit Date Anemia of renal disease September 04 11:12am B12 deficiency September 04, 2024 1 1:12am CKD stage 3b, GFR 30-44 ml/min August 212024 11:12am Hyperkalemia September 04, 2024 1 1:12am Hyperparathyroidism September 04, 2024 1 1:12am Hypomagnesemia September 04, 2024 1 1:12am Neurogenic bladder September 04, 2024 1 1:12am Renal cyst September 04, 2024 1 1:12am 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 September 04, 2024 11:12am Hypertensive nephropathy September 04 025 11:12am Iron deficiency anemia September 04 11:12am Vitamin D deficiency September 04, 2024 11:12am ANATOLIY (acute kidney injury) September 05, 2024 9:58pm 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 September 05, 2024 9:58pm History of neurogenic bladder September 052024 9:58pm Hyperkalemia September 05, 2024 9 :58pm Hypertensive nephropathy September 05 025 9:58pm Iron deficiency anemia September 05 9:58pm Metabolic acidosis September 05, 2024 9 :58pm Urinary retention September 05, 2024 9 :58pm Uropathy, obstructive September 05, 2024 9:58pm Vitamin D deficiency September 05, 2024 9:58pm Chronic kidney disease [address], 202 5 9:58pm Acute electrocardiogram changes November 6:09pm Anemia of renal disease November 23, 2024 6:09pm Chest pain November 23, 2024 6:09 pm CKD stage 3b, GFR 30-44 ml/min November 6:09pm Hydroureteronephrosis November 23, 2024 6: 09pm Hyperkalemia November 23, 2024 6:09 pm Hypertensive emergency November 23, 2024 6 :09pm Neurogenic bladder November 23, 2024 6:09 pm Overactive bladder November 23, 2024 6:09 pm Chief Complaint Admit Date RENAL 3 MONTH F/U September 04, 2024 1 1:12am sent by , kidney issues September 05, 2024 9:58pm sent by , kidney issues September 06, 2024 10:56am sent by November 23, 2024 6:09 pm sent by November 24, 2024 9:22 am sent by November 24, 2024 10:0 8am Reason for Visit Admit Date Anemia of renal disease September 04 11:12am B12 deficiency September 04, 2024 1 1:12am CKD stage 3b, GFR 30-44 ml/min August 212024 11:12am Hyperkalemia September 04, 2024 1 1:12am Hyperparathyroidism September 04, 2024 1 1:12am Hypomagnesemia September 04, 2024 1 1:12am Neurogenic bladder September 04, 2024 1 1:12am Renal cyst September 04, 2024 1 1:12am 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 September 04, 2024 11:12am Hypertensive nephropathy September 04, 2 025 11:12am Iron deficiency anemia September 04 11:12am Vitamin D deficiency September 04, 2024 11:12am Metabolic acidosis September 05, 2024 9 :58pm ANATOLIY (acute kidney injury) September 05, 2024 9:58pm 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 September 05, 2024 9:58pm History of neurogenic bladder September 052024 9:58pm Hyperkalemia September 05, 2024 9 :58pm Hypertensive nephropathy September 05, 2 025 9:58pm Iron deficiency anemia September 05 9:58pm Urinary retention September 05, 2024 9 :58pm Uropathy, obstructive September 05, 2024 9:58pm Vitamin D deficiency September 05, 2024 9:58pm Chronic kidney disease September 05 9:58pm Acute electrocardiogram changes November 6:09pm Acute kidney injury superimposed on CKD November 23, 2024 6:09pm Anemia of renal disease November 23, 2024 6:09pm Cellulitis of right foot November 23, 2024 6:09pm Chest pain November 23, 2024 6:09 pm CKD stage 3b, GFR 30-44 ml/min November 6:09pm Diabetes November 23, 2024 6:09 pm 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, November 23, 2024 6:09pm Foreign body in right foot November 23 6:09pm Hydroureteronephrosis November 23, 2024 6: 09pm Hyperkalemia November 23, 2024 6:09 pm Hypertension November 23, 2024 6:09 pm Hypertensive emergency November 23, 2024 6 :09pm Neurogenic bladder November 23, 2024 6:09 pm Overactive bladder November 23, 2024 6:09 pm Additional Source Comments INFORMATION SOURCE (unrecogn ized section and content) DATE CREATED AUTHOR 01/23/2021 [facility] DATE CREATED AUTHOR AUTHOR'S ORGANIZ ATION 01/04/2023 [facility] DATE CREATED AUTHOR AUTHOR'S ORGANIZ ATION 11/03/2023 [facility] DATE CREATED AUTHOR AUTHOR'S ORGANIZ ATION 03/05/2024 [facility] DATE CREATED AUTHOR AUTHOR'S ORGANIZ ATION 04/02/2024 [facility] DATE CREATED AUTHOR AUTHOR'S ORGANIZ ATION 04/29/2024 [facility] DATE CREATED AUTHOR AUTHOR'S ORGANIZ ATION 06/28/2024 [facility] DATE CREATED AUTHOR AUTHOR'S ORGANIZ ATION 07/08/2024 [facility] DATE CREATED AUTHOR AUTHOR'S ORGANIZ ATION 12/29/[address] [facility] DATE CREATED AUTHOR AUTHOR'S ORGANIZ ATION 01/15/2025 [facility] DATE CREATED AUTHOR AUTHOR'S ORGANIZ ATION 01/28/2025 [facility] EPIC Source Comments (unrecognize d section and content) In the event this informatio n is protected by the Federal Confidentiality of Alcohol and Drug Abuse Patient Records regulations: The Federal rules restrict any use of the information to criminally investigate or prosecute any alcohol or drug abuse patient.[facility] the event this information is protected by the Federal Confidentiality of Alcohol and Drug Abuse Patient Records regulations: The Federal rules restrict any use of the information to criminally investigate or prosecute any alcohol or drug abuse patient.[facility] Center[facility] the event this information is protected by the Federal Confidentiality of Alcohol and Drug Abuse Patient Records regulations: The Federal rules restrict any use of the information to criminally investigate or prosecute any alcohol or drug abuse patient.[facility] Center[facility] the event this information is protected by the Federal Confidentiality of Alcohol and Drug Abuse Patient Records regulations: The Federal rules restrict any use of the information to criminally investigate or prosecute any alcohol or drug abuse patient.[facility] Center[facility] the event this information is protected by the Federal Confidentiality of Alcohol and Drug Abuse Patient Records regulations: The Federal rules restrict any use of the information to criminally investigate or prosecute any alcohol or drug abuse patient.[facility] CenterIn the event this information is protected by the Federal Confidentiality of Alcohol and Drug Abuse Patient Records regulations: The Federal rules restrict any use of the information to criminally investigate or prosecute any alcohol or drug abuse patient.[facility] CenterIn the event this information is protected by the Federal Confidentiality of Alcohol and Drug Abuse Patient Records regulations: The Federal rules restrict any use of the information to criminally investigate or prosecute any alcohol or drug abuse patient.[facility] CenterIn the event this information is protected by the Federal Confidentiality of Alcohol and Drug Abuse Patient Records regulations: The Federal rules restrict any use of the information to criminally investigate or prosecute any alcohol or drug abuse patient.[facility] CenterIn the event this information is protected by the Federal Confidentiality of Alcohol and Drug Abuse Patient Records regulations: The Federal rules restrict any use of the information to criminally investigate or prosecute any alcohol or drug abuse patient.[facility] CenterIn the event this information is protected by the Federal Confidentiality of Alcohol and Drug Abuse Patient Records regulations: The Federal rules restrict any use of the information to criminally investigate or prosecute any alcohol or drug abuse patient.[facility] CenterIn the event this information is protected by the Federal Confidentiality of Alcohol and Drug Abuse Patient Records regulations: The Federal rules restrict any use of the information to criminally investigate or prosecute any alcohol or drug abuse patient.[facility] CenterIn the event this information is protected by the Federal Confidentiality of Alcohol and Drug Abuse Patient Records regulations: The Federal rules restrict any use of the information to criminally investigate or prosecute any alcohol or drug abuse patient.[facility] CenterIn the event this information is protected by the Federal Confidentiality of Alcohol and Drug Abuse Patient Records regulations: The Federal rules restrict any use of the information to criminally investigate or prosecute any alcohol or drug abuse patient.[facility] CenterIn the event this information is protected by the Federal Confidentiality of Alcohol and Drug Abuse Patient Records regulations: The Federal rules restrict any use of the information to criminally investigate or prosecute any alcohol or drug abuse patient.[facility] CenterIn the event this information is protected by the Federal Confidentiality of Alcohol and Drug Abuse Patient Records regulations: The Federal rules restrict any use of the information to criminally investigate or prosecute any alcohol or drug abuse patient.[facility] CenterIn the event this information is protected by the Federal Confidentiality of Alcohol and Drug Abuse Patient Records regulations: The Federal rules restrict any use of the information to criminally investigate or prosecute any alcohol or drug abuse patient.[facility] CenterIn the event this information is protected by the Federal Confidentiality of Alcohol and Drug Abuse Patient Records regulations: The Federal rules restrict any use of the information to criminally investigate or prosecute any alcohol or drug abuse patient.[facility] CenterIn the event this information is protected by the Federal Confidentiality of Alcohol and Drug Abuse Patient Records regulations: The Federal rules restrict any use of the information to criminally investigate or prosecute any alcohol or drug abuse patient.[facility] CenterIn the event this information is protected by the Federal Confidentiality of Alcohol and Drug Abuse Patient Records regulations: The Federal rules restrict any use of the information to criminally investigate or prosecute any alcohol or drug abuse patient.[facility] CenterIn the event this information is protected by the Federal Confidentiality of Alcohol and Drug Abuse Patient Records regulations: The Federal rules restrict any use of the information to criminally investigate or prosecute any alcohol or drug abuse patient.[facility] CenterIn the event this information is protected by the Federal Confidentiality of Alcohol and Drug Abuse Patient Records regulations: The Federal rules restrict any use of the information to criminally investigate or prosecute any alcohol or drug abuse patient.[facility] CenterIn the event this information is protected by the Federal Confidentiality of Alcohol and Drug Abuse Patient Records regulations: The Federal rules restrict any use of the information to criminally investigate or prosecute any alcohol or drug abuse patient.[facility] Reason for Visit (unrecogniz ed section and content) Reason Comments Appointment Reason Comments Follow Up Reason Comments Pre-Op Teaching Reason Comments Surgical Followup Reason Onset Date Comments Research F/U 09/26/2023 Reason Onset Date Comments Research F/U 09/27/2023 Reason Comments Established Patient Reason Comments Results - Ct Reason Comments Consult Established Patient Pt c/o UNCONTROLLED leakage - STOP ICS X2 [id number] Reason Comments Radiology CT Specialty Diagnoses / Procedures Referred By Contac t Referred To Contact CT IMAGING Diagnoses Other hydronephrosis Procedures CT UROGRAM WO/W IVCON CT ABD & PELVIS W/WO CONTRST 1+ BODY REGTaurus Gutierrez, MD [address] [place] [address] [place] [address] Referral ID Status Reason Start Date Expiration Date V isits Requested Visits Authorized [id number] Closed Auto-Generate d Referral 01/19/2024 02/10/2025 1 1 Reason Comments Consult Reason Comments Label Remover - Other Returning Patient's Call Reason Onset Date Comments Med Refill 08/22/2024 Reason Comments Diabetes Hypertension Reason Comments Hypertension Reason Onset Date Comments Med Refill 09/13/2024 Reason Comments Extremity Pain Reason Onset Date Comments Med Refill 10/10/2024 Reason Onset Date Comments Med Refill 10/24/2024 Reason Onset Date Comments Med Refill 11/14/2024 Reason Onset Date Comments Med Refill 11/15/2024 Reason Comments Medicare Annual Wellness Visit Initial Reason Comments Follow-up [facility] hospital f/up Reason Comments Follow-up Hospital follow up- Reason Onset Date Comments Med Refill 12/18/2024 Reason Comments Arm Injury Reason Onset Date Comments Med Refill 01/15/2025 Reason Comments Diabetes Patient Care team informatio n (unrecognized section and content) Team Status: Active Member Role Status Dates Sumi Lentz APRN [employer]N CUTTER OPERATOR-C Primary Care Provider Active Team Status: Active Member Role Status Dates Sumi Lentz APRN [employer] C[employer]TER OPERATOR-C Primary Care Provider Active Start: April 26, 2024 End: April 27, 2024 Rafi Marcelo DO Attending Provider Active Sta rt: April 26, 2024 End: April 27, 2024 Shaikh Leon MD Active Start: 2023 End: April 27, 2024 Team Status: Active Member Role Status Dates Sumi Lentz APRN [employer] CUTTER OPERATOR-C Primary Care Provider Active Start: May 10, 2024 Rafi Marcelo DO Attending Provider Active Sta rt: May 10, 2024 Team Status: Inactive Member Role Status Dates Sumi Lentz APRN [employer] CUTTER OPERATOR-C Primary Care Provider Active Start: June 05, 2024 End: June 05, 2024 Eli Sprague MD Attending Provider Active Star t: June 05, 2024 End: June 05, 2024 Facilities Assistant Relationship Specialty Start Date End Date Agusto Olmstead [address] [place] [address] [place] [address] PCP - General 05/17/23 Lisa Porras MD [address] [place] [address] Referring Urology 05/11/23 Facilities Assistant Relationship Specialty Start Date End Date Agusto Olmstead [address] [facility] [place] [address] PCP - General 05/17/23 Lisa Porras MD [address] [place] [address] Referring Urology 05/11/23 Facilities Assistant Relationship Specialty Start Date End Date Agusto Olmstead [address] [facility] [place] [address] PCP - General 05/17/23 Lisa Porras MD [address] [place] [address] Referring Urology 05/11/23 Facilities Assistant Relationship Specialty Start Date End Date Agusto Olmstead [address] [facility] [place] [address] PCP - General 05/17/23 Lisa Porras MD [address] [place] [address] Referring Urology 05/11/23 Facilities Assistant Relationship Specialty Start Date End Date Agusto Olmstead [address] [place] [address] PCP - General 05/17/23 Lisa Porras MD [address] [place] [address] Referring Urology 05/11/23 Facilities Assistant Relationship Specialty Start [place] [address] PCP - General 05/17/23 Lisa Porras MD [address] [place] [address] Referring Urology 05/11/23 Team Status: Inactive Member Role Status Dates Eli Sprague MD Attending Provider Active Star t: August 01, 2023 End: August 01, 2023 Facilities Assistant Relationship Specialty Start [place] [address] PCP - General 05/17/23 Lisa Porras MD [address] [place] [address] [place] [address] Referring Urology 05/11/23 Agusto Olmstead [address] [place] [address] Referring 01/04/24 Facilities Assistant Relationship Specialty Start Date End Date Agusto Olmstead [address] [place] [address] PCP - General 05/17/23 Lisa Porras MD [address] [place] [address] [place] [address] Referring Urology 05/11/23 Agusto Olmstead [address] [place] [address] Referring 01/04/24 Facilities Assistant Relationship Specialty Start Date End Date Agusto Olmstead [address] [place] [address] PCP - General 05/17/23 Lisa Porras MD [address] [place] [place] [address] Referring Urology 05/11/23 Agusto Olmstead [address] [place] [address] Referring 01/04/24 Facilities Assistant Relationship Specialty Start Date End Date Agusto Olmstead [address] [place] [place] [address] PCP - General 05/17/23 Lisa Porras MD [address] [place] [address] [place] [address] Referring Urology 05/11/23 Agusto Olmstead [address] [place] [address] [place] [address] Referring 01/04/24 Facilities Assistant Relationship Specialty Start Date End Date Agusto Olmstead [address] [place] [address] [place] [address] PCP - General 05/17/23 Lisa Porras MD [address] [place] [address] [place] [address] Referring Urology 05/11/23 Agusto Olmstead [address] [place] [address] [place] [address] Referring 01/04/24 Facilities Assistant Relationship Specialty Start Date End Date Agusto Olmstead [address] [place] [address] [place] [address] PCP - General 05/17/23 Lisa Porras MD [address] [place] [address] [place] [address] Referring Urology 05/11/23 Agusto Olmstead [address] [place] [address] [place] [address] Referring 01/04/24 Facilities Assistant Relationship Specialty Start Date End Date Agusto Olmstead [address] [place] [address] [place] [address] PCP - General 05/17/23 Lisa Porras MD [address] [place] [address] [place] [address] Referring Urology 05/11/23 Agusto Olmstead [address] [place] [address] [place] [address] Referring 01/04/24 Facilities Assistant Relationship Specialty Start Date End Date Agusto Olmstead [address] [place] [address] [place] [address] PCP - General 05/17/23 Lisa Porras MD [address] [place] [address] [place] [address] Referring Urology 05/11/23 Agusto Olmstead [address] [place] [address] [place] [address] Referring 01/04/24 Facilities Assistant Relationship Specialty Start Date End Date Agusto Olmstead [address] [place] [address] [place] [address] PCP - General 05/17/23 Lisa Porras MD [address] [place] [address] [place] [address] Referring Urology 05/11/23 DucanilaAgusto salas [address] [place] [address] [place] [address] Referring 01/04/24 Facilities Assistant Relationship Specialty Start Date End Date Agusto Olmstead [address] [place] [address] [place] [address] PCP - General 05/17/23 Lisa Porras MD [address] [place] [address] [place] [address] Referring Urology 05/11/23 Agusto Olmstead [address] [place] [address] [place] [address] Referring 01/04/24 Facilities Assistant Relationship Specialty Start Date End Date Kofi Gotti MD [address] [place] [address] PCP - General Family Medicine 10/09/23 Facilities Assistant Relationship Specialty Start Date End Date Kofi Gotti MD [address] [place] [address] PCP - General Family Medicine 10/09/23 Facilities Assistant Relationship Specialty Start Date End Date Agusto Olmstead [address] [place] [place] [address] PCP - General 05/17/23 Lisa Porras MD [address] [place] [place] [address] Referring Urology 05/11/23 Agusto Olmstead [address] [place] [place] [address] Referring 01/04/24 Facilities Assistant Relationship Specialty Start Date End Date Kofi Gotti MD [address] [place] [address] PCP - General Family Medicine 10/09/23 Facilities Assistant Relationship Specialty Start Date End Date Kofi Gotti MD [address] [place] [address] PCP - General Family Medicine 10/09/23 Facilities Assistant Relationship Specialty Start Date End Date Kofi Gotti MD [address] [place] [address] PCP - General Family Medicine 10/09/23 Facilities Assistant Relationship Specialty Start Date End Date Kofi Gotti MD [address] [place] [address] PCP - General Family Medicine 10/09/23 Facilities Assistant Relationship Specialty Start Date End Date Kofi Gotti MD [address] [place] [address] PCP - General Family Medicine 10/09/23 Facilities Assistant Relationship Specialty Start Date End Date Kofi Gotti MD [address] [place] [address] PCP - General Family Medicine 10/09/23 Facilities Assistant Relationship Specialty Start Date End Date Kofi Gotti MD [address] [place] [address] PCP - General Family Medicine 06/20/24 Agusto Olmstead NP [address] [place] [address] Nurse Practitioner Family Medicine 06/11/24 Facilities Assistant Relationship Specialty Start Date End Date Kofi Gotti MD [address] [place] [address] PCP - General Family Medicine 06/20/24 Agusto Olmstead NP [address] [place] [address] Nurse Practitioner Family Medicine 06/11/24 Facilities Assistant Relationship Specialty Start Date End Date Agusto Olmstead, HAIR DRYER-[employer] METHODS DEVELOPER PCP - General Nurse Practitioner 11/10/22 Facilities Assistant Relationship Specialty Start Date End Date Kofi Gotti MD [address] [place] [address] PCP - General Family Medicine 06/20/24 Agusto Olmstead NP [address] [place] [address] Nurse Practitioner Family Medicine 06/11/24 Facilities Assistant Relationship Specialty Start Date End Date Kofi Gotti MD [address] [place] [address] PCP - General Family Medicine 06/20/24 Agusto Olmstead NP [address] [place] [address] Nurse Practitioner Family Medicine 06/11/24 Facilities Assistant Relationship Specialty Start Date End Date Kofi Gotti MD [address] [place] [address] PCP - General Family Medicine 06/20/24 Agusto Olmstead NP [address] [place] [address] Nurse Practitioner Family Medicine 06/11/24 Team Status: Active Member Role Status Dates Sumi Lentz APRN CORN CUTTER OPERATOR-C Primary Care Provider Active Start: August 28, 2024 Eli Sprague MD Attending Provider Active Star t: August 28, 2024 Team Status: Inactive Member Role Status Dates Sumi Lentz APRN [employer]N CUTTER OPERATOR-C Primary Care Provider Active Start: September 04, 2024 End: September 04, 2024 Eli Sprague MD Attending Provider Active Star t: September 04, 2024 End: September 04, 2024 Team Status: Active Member Role Status Dates Agusto Olmstead Primary Care Provider Active Team Status: Active Member Role Status Dates Agusto Olmstead Primary Care Provider Active Sta rt: September 05, 2024 Yessica Barros APRN Emergency Provider Active Start: September 05, 2024 Alejandro Vallejo MD Admit Provider, Atte nding Provider Active Start: September 05, 2024 Facilities Assistant Relationship Specialty Start Date End Date Kofi Gotti MD [address] [place] [address] PCP - General Family Medicine 06/20/24 Agusto Olmstead NP [address] [place] [address] Nurse Practitioner Family Medicine 06/11/24 Team Status: Active Member Role Status Dates Agusto Olmstead Primary Care Provider Active Sta rt: August 12, 2024 Rafi Marcelo DO Attending Provider Active Sta rt: August 12, 2024 Team Status: Inactive Member Role Status Dates Agusto Olmstead Primary Care Provider Active Sta rt: September 05, 2024 End: September 08, 2024 Yessica Barros APRN Emergency Provider Active Start: September 05, 2024 End: September 08, 2024 Alejandro Vallejo MD Admit Provider Active Start: Dong foss 2024 End: September 08, 2024 Gilmer Tai MD Attending Provider Active St art: September 05, 2024 End: September 08, 2024 Akin Dougherty MD Other Provider Active Start: Walter castillo 2024 End: September 08, 2024 Abhishek Castañeda MD Other Provider Active Start: September 05, 2024 End: September 08, 2024 Team Status: Active Member Role Status Dates Agusto Olmstead Primary Care Provider Active Sta rt: September 06, 2024 Yessica Barros APRN Emergency Provider Active Start: September 06, 2024 Alejandro Vallejo MD Admit Provider Active Start: Dong foss 2024 Gilmer Tai MD Other Provider Active Start: September 06, 2024 Akin Dougherty MD Attending Provider, Other Provider Active Start: September 06, 2024 Facilities Assistant Relationship Specialty Start Date End Date Agusto Olmstead, HAIR DRYER-[employer] METHODS DEVELOPER PCP - General Nurse Practitioner 11/10/22 Facilities Assistant Relationship Specialty Start Date End Date Kofi Gotti MD [address] [place] [address] PCP - General Family Medicine 06/20/24 Agusto Olmstead NP [address] [place] [address] Nurse Practitioner Family Medicine 06/11/24 Facilities Assistant Relationship Specialty Start Date End Date Kofi Gotti MD [address] [place] [address] PCP - General Family Medicine 06/20/24 Agusto Olmstead NP [address] [place] [address] Nurse Practitioner Family Medicine 06/11/24 Facilities Assistant Relationship Specialty Start Date End Date Agusto Olmstead, HAIR DRYER[employer] DEVELOPER PCP - General Nurse Practitioner 11/10/22 Facilities Assistant Relationship Specialty Start Date End Date Agusto Olmstead, HAIR DRYER-[employer] DEVELOPER PCP - General Nurse Practitioner 11/10/22 Facilities Assistant Relationship Specialty Start Date End Date Agusto Olmstead, HAIR DRYER[employer] DEVELOPER PCP - General Nurse Practitioner 11/10/22 Facilities Assistant Relationship Specialty Start Date End Date Kofi Gotti MD [address] [place] [address] PCP - General Family Medicine 06/20/24 Agusto Olmstead NP [address] [place] [address] Nurse Practitioner Family Medicine 06/11/24 Ninfa Canela MA Family Medicine 09/13/24 Facilities Assistant Relationship Specialty Start Date End Date Agusto Olmstead HAIR DRYER[employer] DEVELOPER PCP - General Nurse Practitioner 11/10/22 Facilities Assistant Relationship Specialty Start Date End Date Kofi Gotti MD [address] [place] [address] PCP - General Family Medicine 06/20/24 Agusto Olmstead NP [address] [place] [address] Nurse Practitioner Family Medicine 06/11/24 Ninfa Canela MA Family Medicine 09/13/24 Facilities Assistant Relationship Specialty Start Date End Date Kofi Gotti MD [address] [place] [address] PCP - General Family Medicine 06/20/24 Agusto Olmstead NP [address] [place] [address] Nurse Practitioner Family Medicine 06/11/24 Ninfa Canela MA Family Medicine 09/13/24 Facilities Assistant Relationship Specialty Start Date End Date Kofi Gotti MD [address] [place] [address] PCP - General Family Medicine 06/20/24 Agusto Olmstead NP [address] [place] [address] Nurse Practitioner Family Medicine 06/11/24 Ninfa Canela MA Family Medicine 09/13/24 Facilities Assistant Relationship Specialty Start Date End Date Kofi Gotti MD [address] [place] [address] PCP - General Family Medicine 06/20/24 Agusto Olmstead NP [address] [place] [address] Nurse Practitioner Family Medicine 06/11/24 Ninfa Canela MA Family Medicine 09/13/24 Facilities Assistant Relationship Specialty Start Date End Date Kofi Gotti MD [address] [place] [address] PCP - General Family Medicine 06/20/24 Agusto Olmstead NP [address] [place] [address] Nurse Practitioner Family Medicine 06/11/24 Ninfa Canela MA Family Medicine 09/13/24 Facilities Assistant Relationship Specialty Start Date End Date Kofi Gotti MD [address] [place] [address] PCP - General Family Medicine 06/20/24 Agusto Olmstead NP [address] [place] [address] Nurse Practitioner Family Medicine 06/11/24 Ninfa Canela MA Family Medicine 09/13/24 Team Status: Active Member Role Status Dates Agusto Olmstead Primary Care Provider Active Sta rt: September 04, 2024 Rafi Marcelo DO Attending Provider Active Sta rt: September 04, 2024 Team Status: Active Member Role Status Dates Agusto Olmstead Primary Care Provider Active Sta rt: November 23, 2024 Jr Layne DO Emergency Provider Active Sta rt: November 23, 2024 Diane Smith MD Admit Provider, Attending Provider A ctive Start: November 23, 2024 Team Status: Inactive Member Role Status Dates Agusto Olmstead Primary Care Provider Active Sta rt: November 23, 2024 End: November 26, 2024 Jr Layne DO Emergency Provider Active Sta rt: November 23, 2024 End: November 26, 2024 Diane Smith MD Admit Provider Active Start: A pril 2024 End: November 26, 2024 Tyler Valencia MD Other Provider Active Start: Ap ril 2024 End: November 26, 2024 Cory Angeles DPM Other Provider Active Sta rt: November 23, 2024 End: November 26, 2024 Demian Dorantes MD Attending Provider Active Start: November 23, 2024 End: November 26, 2024 Team Status: Active Member Role Status Dates Agusto Olmstead Primary Care Provider Active Sta rt: November 24, 2024 Jr Layne DO Emergency Provider Active Sta rt: November 24, 2024 Diane Smith MD Admit Provider, Othe r Provider Active Start: November 24, 2024 Tyler Valencia MD Attending Provider, Other Provider Active Start: November 24, 2024 Cory Angeles DPM Other Provider Active Sta rt: November 24, 2024 Suzy Valdivia RN Other Provider Active Star t: November 24, 2024 Nasim Alcazar DO Other Provider Active Start : November 24, 2024 Sal Keen MD Other Provider Active Start: November 24, 2024 Zackery Moffett MD Other Provider Active Start: November 24, 2024 Annette Hernandez MD Other Provider Active St art: November 24, 2024 Clinton Galdamez MD Other Provider Active Start: November 24, 2024 Aislinn Diaz APRN Other Provider Active Start : November 24, 2024 Shyann Lomax MD Other Provider Active Start: A pril 2024 Felecia Marques MD Other Provider Active Start: November 24, 2024 Shankar Murphy MD Other Provider Active Start: A pril 2024 Julia Krueger , [facility] Other Provider Active Sta rt: November 24, 2024 Team Status: Active Member Role Status Dates Agusto Francismundo Primary Care Provider Active Sta rt: November 24, 2024 Jr Layne DO Emergency Provider Active Sta rt: November 24, 2024 Diane Smith MD Admit Provider, Othe r Provider Active Start: November 24, 2024 Tyler Valencia MD Other Provider Active Start: Ap ril 2024 Cory Angeles DPM Other Provider Active Sta rt: November 24, 2024 Suzy Valdivia RN Other Provider Active Star t: November 24, 2024 Nasim Alcazar DO Other Provider Active Start : November 24, 2024 Sal Keen MD Other Provider Active Start: November 24, 2024 Zackery Moffett MD Other Provider Active Start: November 24, 2024 Annette Hernandez MD Other Provider Active St art: November 24, 2024 Clinton Galdamez MD Other Provider Active Start: November 24, 2024 Aislinn Daiz APRN Other Provider Active Start : November 24, 2024 Shyann Lomax MD Other Provider Active Start: A pril 2024 Felecia Marques MD Other Provider Active Start: November 24, 2024 Shankar Murphy MD Other Provider Active Start: A pril 2024 Julia Krueger , [facility]- Other Provider Active Sta rt: November 24, 2024 Galo Mcmullen MD Attending Provider Active Start: November 24 Facilities Assistant Relationship Specialty Start Date End Date Kofi Gotti MD [address] [place] [address] PCP - General Family Medicine 06/20/24 Agusto Olmstead NP [address] [place] [address] Nurse Practitioner Family Medicine 06/11/24 Ninfa Canela MA Family Medicine 09/13/24 Facilities Assistant Relationship Specialty Start Date End Date Kofi Gotti MD [address] [place] [address] PCP - General Family Medicine 06/20/24 Agusto Olmstead NP [address] [place] [address] Nurse Practitioner Family Medicine 06/11/24 Ninfa Canela MA Family Medicine 09/13/24 Facilities Assistant Relationship Specialty Start Date End Date Kofi Gotti MD [address] [place] [address] PCP - General Family Medicine 06/20/24 Agusto Olmstead NP [address] [place] [address] Nurse Practitioner Family Medicine 06/11/24 Ninfa Canela MA Family Medicine 09/13/24 Facilities Assistant Relationship Specialty Start Date End Date Agusto Olmstead, HAIR DRYER-[employer]B METHODS DEVELOPER PCP - General Nurse Practitioner 11/10/22 Facilities Assistant Relationship Specialty Start Date End Date Agusto Olmstead HAIR DRYER-[facility] PCP - General Nurse Practitioner 11/10/22 Facilities Assistant Relationship Specialty Start Date End Date Kofi Gotti MD [address] [place] [address] PCP - General Family Medicine 06/20/24 Agusto Olmstead NP [address] [place] [address] Nurse Practitioner Family Medicine 06/11/24 Ninfa Canela MA Family Medicine 09/13/24 Facilities Assistant Relationship Specialty Start Date End Date Kofi Gotti MD [address] [place] [address] PCP - General Family Medicine 06/20/24 Agusto Olmstead NP [address] [place] [address] Nurse Practitioner Family Medicine 06/11/24 Ninfa Canela MA Family Medicine 09/13/24 Facilities Assistant Relationship Specialty Start Date End Date Kofi Gotti MD [address] [place] [address] PCP - General Family Medicine 06/20/24 Agusto Olmstead NP [address] [place] [address] Nurse Practitioner Family Medicine 06/11/24 Ninfa Canela MA Family Medicine 09/13/24 Goals (unrecognized section and content) Goals may [...] BE BASED ON THE PRIMARY CLINICAL RECORDS. [employer] provides no warranty or guarantee of the accuracy or completeness of information in this document.
[2025-02-12] VITALS (7 sets, daily range): BP systolic 120–162; BP diastolic 59–90; PULSE 61–71; TEMP 36.6–36.7; O2SAT 94–96
[2025-02-12 06:04] LABS: Hematocrit 30.8 % (36.0-48.0); Hemoglobin 9.7 g/dL (12.0-16.0); Mean Corpuscular HGB Conc 31.5 g/dL (29.9-35.2); Mean Corpuscular Hemoglobin 25.1 pg (26.7-34.0); Mean Corpuscular Volume 79.8 fL (81.0-99.0); Mean Platelet Volume 11.1 fL (9.5-13.5); Platelet Count 217 10^3/uL (150-450); Red Blood Count 3.86 10^6/uL (4.20-5.40); Red Cell Distribution Width 14.6 % (11.0-15.0); White Blood Count 8.8 10^3/uL (4.0-11.0)
[2025-02-12 06:32] LABS: Alanine Aminotransferase 10 U/L (14-59); Albumin Globulin Ratio 0.5; Albumin Level 2.2 g/dL (3.4-5.0); Alkaline Phosphatase 100 U/L (46-116); Anion Gap 16.1; Aspartate Amino Transferase 18 U/L (15-37); BUN Creatinine Ratio 15.8; Bilirubin Total 0.2 mg/dL (0.2-1.0); Calcium 8.8 mg/dL (8.5-10.1); Carbon Dioxide 19.7 mmol/L (21.0-32.0); Chloride 111 mmol/L (98-107); Estimated GFR (African America 18 (>=60 mL/min/1.73m^2); Estimated GFR (Non-African Ame 15 (>=60 mL/min/1.73m^2); Globulin 4.8 g/dL; Glucose 103 mg/dL (74-106); Potassium 4.8 mmol/L (3.5-5.1); Sodium 142 mmol/L (136-145)
[2025-02-12] MEDS: PREGABALIN 75 MG CAPSULE 150 MG PO (08:41)
[2025-02-12] MEDS: FERROUS SULFATE 325 MG TABLET PO (08:41)
[2025-02-12] MEDS: FOLIC ACID/VIT B6/VIT B12 TABLET 1 TAB PO (08:41)
[2025-02-12] MEDS: HEPARIN SODIUM (PORCINE) 5,000 UNIT/ML VIAL 5000 UNIT SUBQ ×2 (08:41→21:08)
[2025-02-12] MEDS: METOPROLOL SUCCINATE 50 MG TAB.ER.24H PO (08:41)
[2025-02-12] MEDS: HYDROCODONE/ACETAMINOPHEN 7.5-325 MG/15 ML CUP 7.5 MG PO (09:00)
--- NOTE | 2025-02-12 09:03 | SWNOTE1 ---
SW and I met with pt in room. Pt is from home and she lives alone. Pt does not use any DME or have services coming in to home. Pt has a good support system. At this time pt denies any d/c needs, SW to follow as needed.
--- NOTE | 2025-02-12 09:24 | SWNOTE1 ---
Important Message from Medicare reviewed and discussed with patient. Pt. verbalized understanding and signed the form. Original given to patient and copy placed in patient?s chart.
--- NOTE | 2025-02-12 09:54 | CT_ITS ---
The [address] [address] Patient Name: AISLINN CARNES MRN: [id number] date: 1960 Sex: F Assigned Patient Location: [place] Current Patient Location: Accession/Order Number: [id number] Exam Date: 02/12/2025 10:49 Report Date: 02/12/2025 11:05 At the request of: DESTIN ALEMAN MD Procedure: CT abdomen pelvis wo con CT ABDOMEN AND PELVIS WITHOUT CONTRAST COMPARISON: 09/04/2024 CLINICAL DATA: Abdominal and back pain with vomiting. Urinary tract infection. Spiral images were obtained through the abdomen and pelvis without contrast. This CT exam was performed using one or more following dose reduction techniques: Automated exposure control, adjustment of the mA and/or kV according to patient size, or use of iterative reconstruction technique. Limited cuts through the lung bases show linear atelectasis or scarring. Evaluation of the intra-abdominal organs is slightly limited by the absence of contrast. The gallbladder is surgically absent. The common duct is prominent however no obvious choledocholithiasis is seen. The liver, spleen, pancreas and adrenal glands show no acute findings. There is bilateral perinephric fibrofatty stranding. Minor scarring is again noted along the lower lateral aspect of the left kidney. No renal calculi are present. Moderate bilateral hydronephrosis and hydroureter is again seen. No ureteral stones are identified. There is still some urothelial thickening at the ureters however less prominent than on the comparison. There is atherosclerotic plaque at the aorta and iliac arteries. There are small retroperitoneal lymph nodes. No ascites is seen. There is a tiny umbilical hernia containing fat. The small bowel loops are normal caliber. Fluid is present within the stomach. There is moderate stool throughout the colon. Slight levoscoliotic curvature and degenerative changes are noted at the spine. There is chronic concavity at superior endplate of L1. Images through the pelvis show no dilated small bowel. No appendiceal inflammation is present. There is moderate distal colonic stool. No diverticular disease is noted. The urinary bladder is partially distended and wall thickening is again seen. There are no intraluminal abnormalities. The uterus appears to be surgically absent. There are mildly patulous inguinal rings containing fat. No ascites is noted. CT/CT abdomen pelvis wo con IMPRESSION: BILIARY DILATATION, LIKELY SECONDARY TO PREVIOUS CHOLECYSTECTOMY. NO NEPHROLITHIASIS. CONTINUED MODERATE BILATERAL HYDRONEPHROSIS AND HYDROURETER, WITHOUT ASSOCIATED STONES. MINOR UROTHELIAL THICKENING AT THE URETERS AND MODERATE WALL THICKENING AT THE URINARY BLADDER. THIS COULD RELATE TO THE REPORTED HISTORY OF URINARY TRACT INFECTION. MODERATE COLONIC STOOL. NO OTHER ACUTE FINDINGS. Impression dictated by: Lenora Pike M.D. 02/12/2025 11:05 AM Dictation Location: [place] [address] Electronically authenticated by: [id number] Y Date: 02/12/2025 11:05
--- NOTE | 2025-02-12 10:40 | SWNOTE1 ---
Important Message from Medicare discussed with pt. Pt voiced understanding and signed the form. Original given to pt and copy placed in pt's chart.
[2025-02-12] MEDS: ONDANSETRON PF 4 MG/2 ML VIAL 2 MG IV (11:00)
[2025-02-12] MEDS: PIPERACILLIN SODIUM/TAZOBACTAM 3.375 GM in 0.9 % SODIUM CHLORIDE 50 ML IV ×2 (11:01→23:16)
[2025-02-12] MEDS: FLUTICASONE PROPIONATE 50 MCG NASAL SPRAY 1 SPRAY NS (11:10)
[2025-02-12] MEDS: AMLODIPINE BESYLATE 5 MG TABLET 10 MG PO (11:37)
--- NOTE | 2025-02-12 12:05 | CM.NOTE ---
Rounds made with Dr. Smith. Dr. Smith reviews with Ms. Wheeler symptoms that brought her to the facility. Radiology and lab findings reviewed. CT abd/pelvis ordered, Zofran IV and Zosyn IV ordered.
--- NOTE | 2025-02-12 13:04 | PM.IMHP1 ---
Internal Medicine - H&P: HPI History of Present Illness Chief complaint: DIZZINESS, UTI, CKD, HYPERKALEMIA Narrative: Please be aware I am seeing this pt for the first time today, she was admitted by the nightteam electronic intelligence officer. This is a 62-year-old female patient with past medical history of diabetes type 2, hypertension, hyperkalemia, iron deficiency anemia, urinary incontinence, chronic urinary retention with neurogenic bladder performs self-catheterization at home and renal cyst her for not feeling well of 1 day duration. History obtained from the patient at bedside as well as from the ER documentation and her chart review. She states that yesterday she was feeling off, very tired and weak just wanted to sleep along with pain with urination and burning on urination. She also mentioned having nausea and vomiting. No fever but she always has chills as she mentions. She used to follow-up with urology at [facility] but states that has not follow-up for some time. She goes to [facility] and followed with Dr. Garcia from nephrology. In the ED, patient's CBC showed microcytic anemia which is around her baseline. Her chemistry showed BUN of 55 and creatinine of 3.25 which improved today to BUN of 49 at creatinine of 3.10. She had no hyperkalemia but did have slight acidosis with bicarb of 19. Her UA was positive for UTI. I ordered a CT abdomen pelvis that showed continued moderate bilateral hydronephrosis in the right ureter without associated stones. Minor ureteral thickening at the ureters and moderate wall thickening at the urinary bladder which could relate to reported history of UTI. Moderate chronic stools. Patient was sent on IV ceftriaxone by night team. When I saw her she had bilateral flank tenderness. She mentioned something about having pain when she urinate and self catheterize. No fever no chills no nausea no vomiting today. Lab showed improvement in her creatinine. No leukocytosis. Review of Systems ROS Status of ROS 10 or more systems reviewed and unremarkable except as noted in history and below [facility] Medical History (Updated 02/12/25 @ 13:17 by Diane Smith MD) RSD (reflex sympathetic dystrophy) ?G90.50 - Complex regional pain syndrome I, unspecified (ICD-10) Osteoporosis ?M81.0 - Age-related osteoporosis without current pathological fracture (ICD-10) Mitral valve prolapse ?I34.1 - Nonrheumatic mitral (valve) prolapse (ICD-10) Hyponatremia ?E87.1 - Hypo-osmolality and hyponatremia (ICD-10) Fatty liver ?K76.0 - Fatty (change of) liver, not elsewhere classified (ICD-10) Cervical cancer ?C53.9 - Malignant neoplasm of cervix uteri, unspecified (ICD-10) Dyspnea on exertion ?R06.09 - Other forms of dyspnea (ICD-10) Back pain ?M54.9 - Dorsalgia, unspecified (ICD-10) Neck pain ?M54.2 - Cervicalgia (ICD-10) Rheumatoid arthritis ?M06.9 - Rheumatoid arthritis, unspecified (ICD-10) Abscess of right foot ?L02.611 - Cutaneous abscess of right foot (ICD-10) Foreign body in foot ?S90.859A - Superficial foreign body, unspecified foot, initial encounter (ICD-10) Anemia ?D64.9 - Anemia, unspecified (ICD-10) Lung nodule ?R91.1 - Solitary pulmonary nodule (ICD-10) Transient ischemic attack (2018) ?G45.9 - Transient cerebral ischemic attack, unspecified (ICD-10) Seasonal allergies ?J30.2 - Other seasonal allergic rhinitis (ICD-10) High cholesterol ?E78.00 - Pure hypercholesterolemia, unspecified (ICD-10) H/O stroke without residual deficits (~2018) ?Z86.73 - Personal history of transient ischemic attack (TIA), and cerebral infarction without residual deficits (ICD-10) CKD (chronic kidney disease) stage 4, GFR 15-29 ml/min ?N18.4 - Chronic kidney disease, stage 4 (severe) (ICD-10) Pneumonia ?J18.9 - Pneumonia, unspecified organism (ICD-10) Acute UTI (urinary tract infection) ?N39.0 - Urinary tract infection, site not specified (ICD-10) Amputation of left great toe ?S98.112A - Complete traumatic amputation of left great toe, initial encounter (ICD-10) 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 ?N18.9 - Chronic kidney disease, unspecified (ICD-10) ?Z85.528 - Personal history of other malignant neoplasm of kidney (ICD-10) Neuropathy ?G62.9 - Polyneuropathy, unspecified (ICD-10) DM2 (diabetes mellitus, type 2) ?E11.9 - Type 2 diabetes mellitus without complications (ICD-10) Chronic renal insufficiency ?N18.9 - Chronic kidney disease, unspecified (ICD-10) Hyperglycemia due to diabetes mellitus ?E11.65 - Type 2 diabetes mellitus with hyperglycemia (ICD-10) Urinary tract infection ?N39.0 - Urinary tract infection, site not specified (ICD-10) HTN (hypertension) ?I10 - Essential (primary) hypertension (ICD-10) Stroke ?I63.9 - Cerebral infarction, unspecified (ICD-10) Lupus ?M32.9 - Systemic lupus erythematosus, unspecified (ICD-10) Arthritis ?M19.90 - Unspecified osteoarthritis, unspecified site (ICD-10) Fibromyalgia ?M79.7 - Fibromyalgia (ICD-10) Diabetes ?E11.9 - Type 2 diabetes mellitus without complications (ICD-10) Chronic kidney disease (CKD) ?N18.9 - Chronic kidney disease, unspecified (ICD-10) Neoplasm of kidney ?D49.519 - Neoplasm of unspecified behavior of unspecified kidney (ICD-10) Surgical History H/O foot surgery ?Z98.890 - Other specified postprocedural states (ICD-10) S/P cataract extraction and insertion of intraocular lens ?Z98.49 - Cataract extraction status, unspecified eye (ICD-10) ?Z96.1 - Presence of intraocular lens (ICD-10) History of colonoscopy ?Z98.890 - Other specified postprocedural states (ICD-10) History of cholecystectomy ?Z90.49 - Acquired absence of other specified parts of digestive tract (ICD-10) Status post ORIF of fracture of ankle ?Z98.890 - Other specified postprocedural states (ICD-10) ?Z87.81 - Personal history of (healed) traumatic fracture (ICD-10) Hx of neck surgery ?Z98.890 - Other specified postprocedural states (ICD-10) History of shoulder surgery ?Z98.890 - Other specified postprocedural states (ICD-10) History of hysterectomy ?Z90.710 - Acquired absence of both cervix and uterus (ICD-10) Family History Brother Family history of CHF (congestive heart failure) Family history of myocardial infarction Father Family history of CHF (congestive heart failure) Family history of COPD (chronic obstructive pulmonary disease) Family history of myocardial infarction Sister Family history of cancer Grandmother Family history of cancer Family history of diabetes mellitus Social History (Updated 02/12/25 @ 00:01 by Diana Dumont RN) Within the past year, how often did you have a drink containing alcohol: never Within the past year, how often did you have six or more drinks on one occasion: never Score interpretation: A score less than 3 is consistent with normal alcohol consumption. Smoking status: Never smoker Second hand tobacco smoke exposure: No Non-prescribed substance use: denies use Known occupational exposures/hazards: No Highest level of school completed/degree received: GED or equivalent Do you want help with school or training: No Are you now , , , , never or living with a partner: In a typical week, how many times do you talk on the telephone with family, friends, or neighbors: 3 or more times per week How often do you get together with friends or relatives: 3 or more times per week How often do you attend synagogue or orthodoxy services: never Do you belong to any clubs or organizations such as synagogue groups unions, fraternal or athletic groups, or school groups: no Total score: 1 Score interpretation: A score of less than or equal to 1 indicates the most socially isolated. Little interest or pleasure in doing things: not at all Feeling down, depressed, or hopeless: not at all Feel stressed/tense/nervous/anxious/difficulty sleeping: to some extent Life stressors: other Life stressor details: Personal health Gender Identity: female Meds Home Medications and Allergies Home Medications ?Medication ?Instructions ?Recorded ?Confirmed ?Type insulin lispro 100 unit/mL 1 sliding scale dose subcut QID 05/12/23 02/11/25 History subcutaneous pen pregabalin 150 mg capsule 150 mg PO Q8H 05/12/23 02/11/25 History hydrocodone 7.5 mg-acetaminophen 1 tab PO Q8H PRN pain 07/07/23 02/11/25 History 325 mg tablet ferrous sulfate 325 mg (65 mg 325 mg PO DAILY 01/10/24 02/11/25 History iron) tablet (FeroSul) insulin glargine 100 unit/mL (3 28 unit (0.28 mL) subcut QPM #0 mL 01/11/24 02/11/25 Rx mL) subcutaneous pen (Lantus Solostar U-100 Insulin) B-complex with vitamin C 1 cap PO DAILY 04/26/24 02/11/25 History (Support-500 capsule) metoprolol succinate 50 mg 50 mg PO DAILY 04/26/24 02/11/25 History tablet,extended release 24 hr nitroglycerin 0.4 mg sublingual 0.4 mg sublingual Q5M PRN Pain #10 08/11/24 02/11/25 Rx tablet tabs amlodipine 10 mg tablet 10 mg PO DAILY 02/12/25 02/12/25 History atorvastatin 20 mg tablet (Lipitor) 20 mg PO .QHS 02/12/25 02/12/25 History Allergies Allergy/AdvReac Type Severity Reaction Status Date / Time No Known Drug Allergies Allergy Verified 02/11/25 17:41 Exam Narrative Exam Narrative: General: The patient appears in no apparent distress. Patient is resting comfortably on cart. Skin: Warm, dry, no pallor noted. There is no rash noted. Head: Normocephalic, atraumatic Eye: Normal conjunctiva, no drainage Ears, Nose, Mouth, and Throat: oral mucosa is moist. Nares patent. Cardiovascular: Regular Rate and Rhythm Respiratory: Patient is in no distress, no accessory muscle use, lungs are clear to auscultation, no wheezing, rales or rhonchi Back: Bilateral flank tenderness GI: Soft and nontender, no signs of acute abdomen no suprapubic tenderness Musculoskeletal: The patient has no evidence of calf tenderness, no pitting edema, symmetrical pulses noted bilaterally Neurological: A&O, normal speech Constitutional Vital Signs, click to edit/add: Last Vital Signs Temp 98 F 02/12/25 11:39 Pulse 71 02/12/25 11:39 Resp 20 02/12/25 11:39 BP 160/82 H 02/12/25 11:39 Pulse Ox 96 02/12/25 11:39 O2 Del Method Room Air 02/12/25 11:39 Internal Medicine - H&P: Reslt Labs Labs: Short CBC 02/11/25 02/12/25 Range/Units 18:08 05:46 WBC 9.8 8.8 (4.0-11.0) 10^3/uL Hgb 9.7 L 9.7 L (12.0-16.0) g/dL Hct 30.0 L 30.8 L (36.0-48.0) % Plt Count 255 217 (150-450) 10^3/uL BMP 02/11/25 02/12/25 18:08 05:46 Sodium 137 142 Potassium 5.8 H 4.8 Chloride 106 111 H Carbon Dioxide 20.3 L 19.7 L BUN 55.0 H 49.0 H Creatinine 3.45 H 3.10 H Glucose 183 H 103 Calcium 8.9 8.8 Liver Function 02/12/25 Range/Units 05:46 Total Bilirubin 0.2 (0.2-1.0) mg/dL AST 18 (15-37) U/L ALT 10 L (14-59) U/L Alkaline Phosphatase 100 (46-116) U/L Albumin 2.2 L (3.4-5.0) g/dL Urine 02/11/25 Range/Units 18:40 Urine Color Lt. yellow (YELLOW) Urine Clarity Sl cloudy (CLEAR) Urine pH 6.0 (5.0-9.0) Ur Specific [place] 1.010 (1.005-1.025) Urine Protein 100 A (NEG/TRACE) mg/dL Urine Glucose (UA) 250 A (NEGATIVE) mg/dL Assessment and Plan Assessment and Plan (1) ANATOLIY (acute kidney injury): (2) Hyperkalemia: (3) CKD (chronic kidney disease): Qualifiers: Chronic kidney disease stage: unspecified stage Qualified Code(s): N18.9 - Chronic kidney disease, unspecified (4) UTI (urinary tract infection): Qualifiers: Hematuria presence: without hematuria Urinary tract infection type: site unspecified Qualified Code(s): N39.0 - Urinary tract infection, site not specified (5) Bilateral hydronephrosis: (6) Neurogenic bladder: Plan ANATOLIY on CKD likely in the setting of renal azotemia with known history obstructive uropathy due to moderate stable bilateral hydronephrosis Complicated UTI, pyelonephritis was ruled out - Admit patient to medical floor telemed - I switched IV ceftriaxone to IV Zosyn to be dosed by pharmacy - Will adjust antibiotic coverage according to urine and blood cultures - Appreciate pharmacy help and medication conciliation, agree with lowering down the Lyrica and I will monitor patient's neurosymptoms for any withdrawal from that - Patient's hydronephrosis appears to be stable, she does not follow with urology unfortunately do not have urology service here. I discussed with the patient she said that she would want to get the UTI treated first and then will discuss outpatient urology. -I discussed the plan with her in details. Answered all her questions
[2025-02-12] MEDS: HYDROCODONE/ACET 5-325 MG TABLET 1 TAB PO (16:00)
--- OUTSIDE RECORDS SUMMARY | 2025-02-12 20:34 | XMS_ITS | Continuity of Care Document ---
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 Name Role Phone PennyLatosha weston Primary Care Provider Jr Layne DO Emergency Provider Unavailable Diane Smith MD Admit Provider Starla Valencia Other Provider Cory Angeles DPM Other Provider [phone] Demian Dorantes MD Attending Provider Diane Smith MD Other Provider Starla Valencia Attending Provider Suzy Valdivia RN Other Provider Unavailable Nasim Alcazar DO Other Provider Sal Keen MD Other Provider Joe Moffett MD Other Provider Annette Hernandez MD Other Provider Clinton Galdamez MD Other Provider Renate Diaz APRN Other Provider Shyann Lomax MD Other Provider Felecia Marques MD Other Provider Shankar Murphy MD Other Provider Julia Krueger [facility]- Other Provider [phone] Galo Mcmullen MD Attending Provider Jori Garcia DO Attending Provider Care Teams Visit Care Team Team Status: Inactive Member Role Status Dates Latosha Olmstead Primary Care Provider Active Sta rt: November 23, 2024 End: November 26, 2024 Jr Layne DO Emergency Provider Active Sta rt: November 23, 2024 End: November 26, 2024 Diane Smiht MD Admit Provider Active Start: A pril 2024 End: November 26, 2024 Tyler Valencia MD Other Provider Active Start: Ap ril 2024 End: November 26, 2024 Cory Angeles DPM Other Provider Active Sta rt: November 23, 2024 End: November 26, 2024 Demian Dorantes MD Attending Provider Active Start: November 23, 2024 End: November 26, 2024 Visit Care Team Team Status: Active Member Role Status Dates Latosha Olmstead Primary Care Provider Active Sta rt: November 24, 2024 Jr Layne DO Emergency Provider Active Sta rt: November 24, 2024 Diane Smith MD Admit Provider Active Start: A pril 2024 Diane Smith MD Other Provider Active Start: A pril 2024 Tyler Valencia MD Attending Provider Active Start : November 24, 2024 Tyler Valencia MD Other Provider Active Start: Ap ril 2024 Cory Angeles DPM Other Provider Active Sta rt: November 24, 2024 Suzy Valdivia RN Other Provider Active [place]: November 24, 2024 Nasim Alcazar DO Other Provider Active Start : November 24, 2024 Sal Keen MD Other Provider Active Start: November 24, 2024 Joe Moffett MD Other Provider Active Start: November 24, 2024 Annette Hernandez MD Other Provider Active St art: November 24, 2024 Clinton Galdamez MD Other Provider Active Start: November 24, 2024 Renate Diaz APRN Other Provider Active Start : November 24, 2024 Shyann Lomax MD Other Provider Active Start: A pril 2024 Felecia Marques MD Other Provider Active Start: November 24, 2024 Shankar Murphy MD Other Provider Active Start: A pril 2024 Julia Krueger [facility] Other Provider Active Sta rt: November 24, 2024 Visit Care Team Team Status: Active Member Role Status Dates Latosha Watson Pennyapurvaanilakimberly Primary Care Provider Active Sta rt: November 24, 2024 Jr Layne DO Emergency Provider Active Sta rt: November 24, 2024 Diane Smith MD Admit Provider Active Start: A pril 2024 Diane Smith MD Other Provider Active Start: A pril 2024 Tyler Valencia MD Other Provider Active Start: Ap ril 2024 Cory Angeles DPM Other Provider Active Sta rt: November 24, 2024 Suzy Valdivia RN Other Provider Active [place]: November 24, 2024 Nasim Alcazar DO Other Provider Active Start : November 24, 2024 Sal Keen MD Other Provider Active Start: November 24, 2024 Joe Moffett MD Other Provider Active Start: November 24, 2024 Annette Hernandez MD Other Provider Active St art: November 24, 2024 Clinton Galdamez MD Other Provider Active Start: November 24, 2024 Renate Diaz APRN Other Provider Active Start : November 24, 2024 Shyann Lomax MD Other Provider Active Start: A 2024 Felecia Marques MD Other Provider Active Start: November 24, 2024 Shankar Murphy MD Other Provider Active Start: A pri2024 Julia Krueger [facility] Other Provider Active Sta rt: November 24, 2024 Galo Mcmullen MD Attending Provider Activ e Start: November 24, 2024 Patient Care Team Team Status: Inactive Member Role Status Dates Jori Garcia DO Attending Provider Active S tart: February 11, 2025 End: February 11, 2025 Chief Complaint and Reason for Visit Chief Complaint Admit Date sent by November 23, 2024 6:09 pm sent by November 24, 2024 9:22 am sent by November 24, 2024 10:0 8am Unknown February 11, 2025 6:40 pm Reason for Visit Admit Date Anemia of renal disease November 23, 2024 6:09pm CKD stage 3b, GFR 30-44 ml/min November 6:09pm 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, November 23, 2024 6:09pm Hydroureteronephrosis November 23, 2024 6: 09pm Hypertension November 23, 2024 6:09 pm Neurogenic bladder November 23, 2024 6:09 pm Overactive bladder November 23, 2024 6:09 pm Acute electrocardiogram changes November 6:09pm Acute kidney injury superimposed on CKD November 23, 2024 6:09pm Cellulitis of right foot November 23, 2024 6:09pm Chest pain November 23, 2024 6:09 pm Foreign body in right foot November 23 6:09pm Hyperkalemia November 23, 2024 6:09 pm Hypertensive emergency November 23, 2024 6 :09pm Diabetes November 23, 2024 6:09 pm Reason for Referral Referring Provider Name Referring Provider Address Referring Provider Phone Referral Date Requested Appointment Date Referral Reason Diane Smith [facility] [place] [phone] Work Phone: Please follow-up with [facility] for neurogenic bladder and recurrent urine retention Diane Smith [address] [place] [phone] Work Phone: Hospital follow up appointment. Please call and reschedule if needed. Diane Smith [facility] [phone] Work Phone: Follow up appointment at [place] location: [address] [place] [phone] Hospital follow up appointment. Please call and reschedule if needed. Diane Smith [facility] [phone] Work Phone: Hospital follow up appointment. Please call and reschedule if needed. Please fol low-up with [facility] for neurogenic bladder and recurrent urine retention Hospital f ollow up appointment. Please call and reschedule if needed. Follow up appointment at [place] location: [facility] f ollow up appointment. Please call and reschedule if needed. Health Concerns Concerns A [facility] screening has identified you as FRAIL or [...] Four Ways to Beat the Frailty Risk [email or web address] [email or web address] Allergies, Adverse Reactions, Alerts Allergen Type Severity Reaction Last Updated Verified Status latex Allergy Unknown Unresponsive December 17, 2024 8:50am Yes Active Social History Smoking Status Status Start Date End Date Date of Observa tion Never smoked tobacco (finding) November 24, 2024 12:47pm Observation Status Observation Response Date of Response Legal Sex Female (finding) Sex Assigned At Female 1960 Social History Assessments Assessment Value Date Recorded SDOH Follow up November 25, 2024 8:43am Question Answer Date Recorded Has the SDOH screening changed since admission? N November 25, 2024 8:43am Family History Relationship Condition Age at Onset Recorded Date/T lalit brother Heart disease Unknown Hypertension Unknown father Unknown Heart disease Unknown Diabetes mellitus Unknown Hypertension Unknown Malignant neoplasm Unknown mother Heart disease Unknown Unknown History of stroke Unknown son Heart disease Unknown sister Hypertension Unknown Diabetes mellitus Unknown Heart disease Unknown Problems Active Problems Medical Problem Onset Date Status Hydroureteronephrosis Unknown Active CKD stage 3b, GFR 30-44 ml/min Unknown A ctive Vitamin D toxicity Unknown Active Neurogenic bladder Unknown Active Overactive bladder Unknown Active B12 deficiency Unknown Active Hyperparathyroidism Unknown Active Renal cyst Unknown Active 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, with long-term current use of insulin Unknown Active Metabolic acidosis Unknown Active Anemia of renal disease Unknown Active Hypertension Unknown Active Hypomagnesemia Unknown Active Inactive/Resolved Problems Medical Problem Onset Date Status ANATOLIY (acute kidney injury) Unknown Resolv ed Foreign body in right foot Unknown Resol anna Hypertensive emergency Unknown Resolved History of neurogenic bladder Unknown Re solved 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 Unknown Resolved Urinary retention Unknown Resolved Acute kidney injury superimposed on CKD Unknown Resolved Iron deficiency anemia Unknown Resolved Uropathy, obstructive Unknown Resolved Acute electrocardiogram changes Unknown Resolved Chest pain Unknown Resolved Hypertensive nephropathy Unknown Resolve d Vitamin D deficiency Unknown Resolved Cellulitis of right foot Unknown Resolve d Hyperkalemia Unknown Resolved Hyperkalemia Unknown Resolved Medications Medication Status Dose Units Route Directions Qty Days St art Date Stop Date End Date Instructions Adherence Atorvastati n 20 mg tablet Active 20 MG PO Daily 2024 1:00am Unknown Insulin Glargine (Lantus Solostar U-100 Insulin) 100 unit/mL (3 mL) insulin pen Active 28 UNIT SUBCUT Daily at bedtime 2024 1:00am FreeTextSi units Subcutaneous qam; Note: Source Status: Unknown; Provider: Davide Tse Unknown Insulin Lispro 100 unit/mL cartridge Active 1 slidin g scale dose SUBCUT Before meals 2024 1:00am FreeTextSi-6-8-10 units ac according to meal size tid. Corrective scale 1:25 ac, hs Subcutaneous As Directed; Note: Source Status: Unknown; Provider: Davide Tse Unknown Nitroglycer in 0.4 mg tablet, sublingual Active 0.4 MG SUBLIN GUAL Q5M as needed for chest pain 2024 1:00am Unknown Furosemide 40 mg Tablet Active 40 MG PO BID@0800,16 00 60 30 2024 1:00am Unknown Sodium Bicarbonate 650 mg Tablet Discont inued 650 MG PO Three times daily 90 2024 1:00am November 23, 2024 8:47p m Amoxicillin 500 mg capsule Discont inued 500 MG PO Three times daily 9 3 2024 1:00am November 26, 2024 11:57 am Amlodipine 5 mg tablet Discont inued 10 MG PO Daily 0 2024 11:39a m November 23, 2024 8:47p m Cyanocobala min (Vitamin B-12) 1,000 mcg capsule Active 1000 MCG PO Daily 90 2024 1:00am Unknown Ergocalcife rol (Vitamin D2) 1,250 mcg (50,000 unit) capsule Active 1250 MCG PO every week 9 60 2024 1:00am Unknown Amlodipine 5 mg tablet Discont inued 5 MG PO Daily November 23, 2024 12:00a m November 26, 2024 11:57 am Amoxicillin -Pot Clavulanate 875-125 mg tablet Active 1 TAB PO Twice daily 05 25November 26, 2024 12:00a m Unknown Amlodipine 10 mg Tablet Active 10 MG PO Daily November 26, 2024 12:00a m Unknown Pregabalin 150 mg capsule Discont inued 150 MG PO Three times daily [facility] r 2023 12:00a m Augua ry 2024 12:22 pm Ondansetron 4 mg tablet,disi ntegrating Discont inued 4 MG PO Every 8 hours as needed for nausea and vomiting [facility] 2023 12:00a m November 23, 2024 8:46p m Fluticasone Propionate 50 mcg/actuati on spray,suspe nsion Discont inued INTRAN SAULO [facility] 2023 12:00a m Augua ry 2024 12:22 pm Cetirizine 10 mg tablet Active 10 MG PO Daily as needed for allergy symptoms [facility] 2023 12:00a m Unknown Hydrocodone -Acetaminop hen 7.5-325 mg tablet Discont inued 1 TAB PO Three times daily as needed [facility] 2023 12:00a m Aug ry 2024 12:22 pm Ferrous Sulfate 325 mg (65 mg iron) tablet Active 325 MG PO Daily [facility] 2023 12:00a m Unknown Calcitriol 0.25 mcg capsule Discont inued 0.25 MCG PO 3 Times a week 30 [facility] r 2023 12:00a m November 23, 2024 8:45p m Fluticasone Propionate 50 mcg/actuati on spray,suspe nsion Active 2 SPRAY INTRAN SAULO Daily as needed for nasal congestion 2024 12:18p m Unknown Hydrocodone -Acetaminop hen 7.5-325 mg tablet Active 1 TAB PO Every 8 hours 2024 12:19p m Unknown Pregabalin 150 mg capsule Active 150 MG PO Every 8 hours 2024 12:19p m Unknown Amlodipine 5 mg tablet Discont inued MG PO Once 2024 1:00am 2024 12:28 pm Metoprolol Succinate 50 mg tablet extended release 24 hr Discont inued MG PO 2024 1:00am 2024 12:29 pm Amlodipine 5 mg tablet Discont inued 5 MG PO Once 2024 12:28p m 2024 11:39 am Metoprolol Succinate 50 mg tablet extended release 24 hr Active 50 MG PO Daily 2024 12:28p m Unknown Procedures Procedure Date Performed Status XR chest 1V portable November 23, 2024 4:16pm comp leted CT abdomen pelvis wo con November 23, 2024 6:09pm completed XR foot RT 2V November 23, 2024 6:45pm completed XR foot RT 2V November 24, 2024 12:57pm complete d NM layton perf SPECT rest & str November 25, 2024 10: 09am completed Urine Culture November 23, 2024 completed Excision of Right Foot Subcu taneous Tissue and Fascia, Open Approach November 23, 2024 active Urine Culture February 11, 2025 active Relevant Diagnostic Tests and/or Laboratory Data Laboratory Results Test Collection Date/Time Result Date/Time Result Interpretation Reference Range Result Comment Performing Site Correcte d White Blood Count November 26, 2024 5:20am November 26, 2024 6:35am 5.8 10*3/uL 3.8-11.6 [facility] [id number] [address] [facility] [address] Uncorrec madhavi WBC Count November 26, 2024 5:20am November 26, 2024 6:35am 5.8 10*3/uL 3.8-11.6 [facility] [id number] [address] [facility] [address] Red Blood Count November 26, 2024 5:20am November 26, 2024 6:35am 3.70 10*6/uL 3.60-5.00 [facility] [id number] [address] [facility] [address] Hemoglob in November 26, 2024 5:20am November 26, 2024 6:35am 9.7 g/dL Below low normal 11.8-15.4 [facility] [id number] [address] [facility] [address] Hematocr it November 26, 2024 5:20am November 26, 2024 6:35am 29.3 % Below low normal 34.0-46.4 [facility] [id number] [address] [facility] [address] Mean Corpuscu lar Volume November 26, 2024 5:20am November 26, 2024 6:35am 79.0 fL Below low normal 80-100 [facility] [id number] [address] [facility] [address] Mean Corpuscu lar Hemoglob in November 26, 2024 5:20am November 26, 2024 6:35am 26.2 pg 24.7-34.3 [facility] [id number] [address] [facility] [address] Mean Corpuscu lar Hemoglob in Concent November 26, 2024 5:20am November 26, 2024 6:35am 33.1 g/dL 32.0-35.0 [facility] [id number] [address] [facility] [address] Red Cell Distribu tion Width November 26, 2024 5:20am November 26, 2024 6:35am 13.7 % 11.9-15.3 [facility] [id number] [address] [facility] [address] Platelet Count November 26, 2024 5:20am November 26, 2024 6:35am 232 10*3/uL 150-450 [facility] [id number] [address] [facility] [address] Mean Platelet Volume November 26, 2024 5:20am November 26, 2024 6:35am 9.3 fL 6.3-10.7 [facility] [id number] [address] [facility] [address] Monocyte Distribu tion Width November 23, 2024 4:51pm November 23, 2024 5:03pm 18.48 % 0.00-20.00 [facility] [id number] [address] [place] [address] Neutroph ils (%) (Auto) November 26, 2024 5:20am November 26, 2024 6:35am 49.0 % . [facility] [id number] [address] [facility] [address] Lymphocy trish (%) (Auto) November 26, 2024 5:20am November 26, 2024 6:35am 40.1 % . [facility] [id number] [address] [facility] [address] Monocyte s (%) (Auto) November 26, 2024 5:20am November 26, 2024 6:35am 6.8 % . [facility] [id number] [address] [facility] [address] Eosinoph ils (%) (Auto) November 26, 2024 5:20am November 26, 2024 6:35am 3.5 % . [facility] [id number] [address] [place] [id number] Basophil s (%) (Auto) November 26, 2024 5:20am November 26, 2024 6:35am 0.6 % . [facility] [id number] [address] [facility] [address] Nucleate d RBC Relative Count (auto) November 26, 2024 5:20am November 26, 2024 6:35am 0.2 /100{WBC} 0-0.5 [facility] [id number] [address] [place] [id number] Neutroph ils # (Auto) November 26, 2024 5:20am November 26, 2024 6:35am 2.8 10*3/uL 1.8-7.7 [facility] [id number] [address] [facility] [address] Lymphocy trish # (Auto) November 26, 2024 5:20am November 26, 2024 6:35am 2.3 10*3/uL 1.00-4.8 [facility] [id number] [address] [facility] [address] Monocyte s # (Auto) November 26, 2024 5:20am November 26, 2024 6:35am 0.4 10*3/uL 0.0-0.8 [facility] [id number] [address] [place] [id number] Eosinoph ils # (Auto) November 26, 2024 5:20am November 26, 2024 6:35am 0.2 10*3/uL 0.0-0.45 [facility] [id number] [address] [place] [address] Basophil s # (Auto) November 26, 2024 5:20am November 26, 2024 6:35am 0.0 10*3/uL 0.0-0.2 [facility] [id number] [address] [place] [address] Erythroc yte Sediment ation Rate November 23, 2024 8:52pm November 23, 2024 9:30pm 66 mm/hr Above high normal 0-29 [facility] [id number] [address] [place] [address] Prothrom bin Time November 23, 2024 4:51pm November 23, 2024 5:33pm 10.6 s 9.0-12.9 A hematocrit value greater than 55% may lead to inaccurate results in coagulatio n testing. Patients having hematocrit values >55% require a special collection tube for coagulatio n studies. Please contact the laboratory at for redraw instructio ns. [facility] [id number] [address] [place], [place] [id number] Prothrom b Time Internat ional Ratio November 23, 2024 4:51pm November 23, 2024 5:33pm 0.9 INR Therapeuti c Range A) Pre- and Peroperati ve OAT started two weeks before surgery. NOT HIP SURGERY: 1.5 - 2.5 HIP SURGERY: 2 - 3B) Primary and secondary prevention of venous THROMBOSIS : 2 - 3C) Active venous thrombosis , pulmonary embolisman d prevention of recurrent venous thrombosis : 2 - 3D) Prevention of arterial thromboemb olisminclu ding patients with mechanical heart valves: 3 - 4.5 [facility] [id number] [address] [place] [address] Urine Color November 23, 2024 4:11pm November 23, 2024 4:31pm Colorless Yellow [facility] [id number] [address] [place] [address] Urine Appearan ce November 23, 2024 4:11pm November 23, 2024 4:31pm Clear Clear [facility] [id number] [address] [place] [address] Urine Specific [place] November 23, 2024 4:11pm November 23, 2024 4:31pm 1.010 1.001-1.03 0 [facility] [id number] [address] [facility] [address] Urine pH November 23, 2024 4:11pm November 23, 2024 4:31pm 6.0 5.0-9.0 [facility] [id number] [address] [facility] [address] Urine Leukocyt e Esterase November 23, 2024 4:11pm November 23, 2024 4:31pm 2+ Above high normal Negative [facility] [id number] [address] [facility] [address] Urine Nitrite November 23, 2024 4:11pm November 23, 2024 4:31pm Negative Negative [facility] [id number] [address] [facility] [address] Urine Protein November 23, 2024 4:11pm November 23, 2024 4:31pm 100 mg/dL Above high normal Negative [facility] [id number] [address] [facility] [address] Urine Glucose (UA) November 23, 2024 4:11pm November 23, 2024 4:31pm 500 mg/dL Above high normal Normal [facility] [id number] [address] [facility] [address] Urine Ketones November 23, 2024 4:11pm November 23, 2024 4:31pm Negative Negative [facility] [id number] [address] [facility] [address] Urine Urobilin ogen November 23, 2024 4:11pm November 23, 2024 4:31pm Normal mg/dL Normal [facility] [id number] [address] [facility] [address] Urine Bilirubi n November 23, 2024 4:11pm November 23, 2024 4:31pm Negative Negative [facility] [id number] [address] [facility] [address] Urine Occult Blood November 23, 2024 4:11pm November 23, 2024 4:31pm Negative Negative [facility] [id number] [address] [facility] [address] Urine RBC November 23, 2024 4:11pm November 23, 2024 4:37pm 1-2 [HPF] 0-4 [facility] [id number] [address] [facility] [address] Urine WBC November 23, 2024 4:11pm November 23, 2024 4:37pm 5-9 [HPF] Above high normal 0-4 [facility] [id number] [address] [facility] [address] Urine Squamous Epitheli al Cells November 23, 2024 4:11pm November 23, 2024 4:37pm 1-2 [HPF] 0-2 [facility] [id number] [address] [facility] [address] Urine Bacteria November 23, 2024 4:11pm November 23, 2024 4:37pm None seen [HPF] None Seen [facility] [id number] [address] [facility] [address] Urine Hyaline Casts November 23, 2024 4:11pm November 23, 2024 4:37pm None [LPF] 0-8 [facility] [id number] [address] [facility] [address] Glucose Level November 26, 2024 5:20am November 26, 2024 7:16am 135 mg/dL Above high normal 70-100 ADA recommende d reference rangeRando m Glucose Reference Range is dependent on time and content of last meal. Glucose of more than 200 mg/dL in a nonstresse d, ambulatory subject supports the diagnosis of Diabetes Mellitus. [facility] [id number] [address] [facility] [address] Blood Urea Nitrogen November 26, 2024 5:20am November 26, 2024 7:16am 39 mg/dL Above high normal 7-25 [facility] [id number] [address] [facility] [address] Creatini ne November 26, 2024 5:20am November 26, 2024 7:16am 2.19 mg/dL Above high normal 0.60-1.20 [facility] [id number] [address] [facility] [address] Estimate d GFR (CKD-EPI ) November 26, 2024 5:20am November 26, 2024 7:16am 24.254 mL/Min [facility] [id number] [address] [facility] [address] Sodium Level November 26, 2024 5:20am November 26, 2024 7:16am 141 mmol/L 136-145 [facility] [id number] [address] [facility] [address] Potassiu m Level November 26, 2024 5:20am November 26, 2024 7:16am 4.5 mmol/L 3.5-5.1 [facility] [id number] [address] [facility] [address] Chloride Level November 26, 2024 5:20am November 26, 2024 7:16am 108 mmol/L Above high normal 98-107 [facility] [id number] [address] [facility] [address] Carbon Dioxide Level November 26, 2024 5:20am November 26, 2024 7:16am 28.1 mmol/L 21.0-31.0 [facility] [id number] [address] [facility] [address] Anion Gap November 26, 2024 5:20am November 26, 2024 7:16am 9.4 mEq/L 6.0-15.0 [facility] [id number] [address] [facility] [address] Calcium Level November 26, 2024 5:20am November 26, 2024 7:16am 8.2 mg/dL Below low normal 8.6-10.3 [facility] [id number] [address] [facility] [address] Phosphor us Level November 26, 2024 5:20am November 26, 2024 7:16am 4.0 mg/dL 2.5-4.5 [facility] [id number] [address] [facility] [address] Magnesiu m Level November 24, 2024 5:14am November 24, 2024 6:21am 2.0 mg/dL 1.9-2.7 [facility] [id number] [address] [facility] [address] Total Protein November 24, 2024 5:14am November 24, 2024 6:21am 6.5 g/dL 6.4-8.9 [facility] [id number] 1[address] [facility] [address] Albumin November 26, 2024 5:20am November 26, 2024 7:16am 2.9 g/dL Below low normal 3.5-5.7 [facility] [id number] 1111 [facility] [address] Globulin November 24, 2024 5:14am November 24, 2024 6:21am 3.6 g/dL [facility] [id number] [address] [place] [address]77 Albumin/ Globulin Ratio November 24, 2024 5:14am November 24, 2024 6:21am 0.8 [facility] [id number] [address] [place], [place] [id number] Total Bilirubi n November 24, 2024 5:14am November 24, 2024 6:21am 0.1 mg/dL Below low normal 0.3-1.0 [facility] [id number] [address] [place] [address] 34397 Aspartat e Amino Transf (AST/SGO T) November 24, 2024 5:14am November 24, 2024 6:21am 12 U/L Below low normal 13-39 [facility] [id number] [address] [place], [place] [address] Alanine Aminotra nsferase (ALT/SGP T) November 24, 2024 5:14am November 24, 2024 6:21am 14 U/L 7-52 [facility] [id number] [address] [place] [address] 537[address] Alkaline Phosphat ase November 24, 2024 5:14am November 24, 2024 6:21am 79 U/L 34-104 [facility] [id number] [address] [place], [place] [address] Troponin I High Sensitiv ity November 23, 2024 8:52pm November 23, 2024 9:26pm 7 ng/L 0-15 The Troponin units of report have been changed to meet the Chest Pain Accreditat ion requiremen t, element EC5.M1l2. Troponin units are changed from pg/ml to ng/L. Also, the decimal is removed and results are in whole numbers. [facility] [id number] [address] [place] [address] 41812 C-Reacti ve Protein, Quantita tive November 23, 2024 8:52pm November 23, 2024 9:24pm < 0.5 mg/dL 0.0-0.5 [facility] [id number] [address] [place] [address] 37415 B-Type Natriure tic Peptide November 23, 2024 4:51pm November 23, 2024 5:28pm 126.0 pg/mL Above high normal 5-100 [facility] [id number] [address] [place] [address] 18457 Pharmacy Creatini ne Clearanc e (Chem November 26, 2024 5:20am November 26, 2024 7:16am 20.53 [facility] [id number] [address] [place], [place] [address] Hemoglob in A1c November 24, 2024 5:14am November 25, 2024 8:53am 9.4 % Above high normal 4.3-5.6 Increased risk for diabetes: 5.7 - 6.4diabete s: >6.4glycem ic control for adults with diabetes: <7.0 [facility] [id number] [address] [place] [address] 66671 Estimate d Average Glucose November 24, 2024 5:14am November 25, 2024 8:53am 223 mg/dL [facility] [id number] [address] [place], [place] [address] Bedside Glucose November 26, 2024 12:11pm November 26, 2024 12:12pm 129 mg/dL Random Glucose Reference Range is dependent on time and content of last meal. Glucose of more than 200 mg/dL in a nonstresse d, ambulatory subject supports the diagnosis of Diabetes Mellitus. Point of Care testing Bedside Glucose Comment November 26, 2024 6:31am November 26, 2024 6:33am Glu2: cleaned meter Point of Care testing Microbiology Results Procedure Source Result Collection Date/Time Result Date/Time Result Comment Performing Site Urine Culture Urine, Clean-Voided Midstream No Growth 2 Days November 23, 2024 4:11pm November 25, 2024 8:33am [facility] [id number] [address] [place], [place] [address] Diagnostic Imaging Reports Author Raf Potter [facility] Authored November 23, 2024 4:52 pm Report Dictated Date/Time Dictated By Status Radiology Report November 23, 2024 4:52pm Raf Potter MD completed [facility] Main [address] [address] XRay Report Signed Patient: Renate Wheeler MR#: [id number] : 1960 Acct:[id number] Age/Sex: 64 / F ADM Date: 5 Loc: ER Room: Type: [facility] ER Attending Dr: Copies to: Jr [...] Raf Potter M.D.11/23/2024 4:55 PM Dictation Location: [place] [address] Transcribed By: [facility] 11/23/241654 Dictated By: Raf Potter MD 11/23/241651 Signed By: <Electronically signed by Raf Potter MD in [place]> 11/23/241654 Author Raf Potter [facility] Authored November 23, 2024 6:39 pm Report Dictated Date/Time Dictated By Status Radiology Report November 23, 2024 6:39pm Raf Potter MD completed [facility] Main [place] [address] [place] [address] CT Scan Report Signed Patient: Renate Wheeler MR#: [id number] : 1960 Acct:[id number] Age/Sex: 64 / F ADM Date: Loc: Room: [address] [place] [address] Type: ADM IN Attending Dr: Diane Smith [...] Raf Potter M.D.11/23/2024 6:50 PM Dictation Location: [place] [address] Transcribed By: [facility] 11/23/24 185 Dictated By: Raf Potter MD 11/23/24 1838 Signed By: <Electronically signed by Raf Potter MD in [place]> 11/23/24 185 Author Raf Potter [facility] Authored November 24, 2024 8:05 am Report Dictated Date/Time Dictated By Status Radiology Report November 24, 2024 8:05am Raf Potter MD completed [facility] Main [place] [id number] XRay Report Signed Patient: Renate Wheeler MR#: [id number] : 1960 Acct:[id number] Age/Sex: 64 / F ADM Date: 5 Loc: 3T Room: [address] [place] [address] Type: ADM IN Attending Dr: Diane Smith [...] Raf Potter M.D.11/24/2024 8:07 AM Dictation Location: [place] [address] Transcribed By: [facility] 11/24/24 0807 Dictated By: Raf Potter MD 11/24/24 0805 Signed By: <Electronically signed by Raf Potter MD in [place]> 11/24/24 0807 Author Raf Potter [facility] Authored November 24, 2024 2:46 pm Report Dictated Date/Time Dictated By Status Radiology Report November 24, 2024 2:46pm Raf Potter MD completed [facility] Main [place] [address] [place] [address] XRay Report Signed Patient: Renate Wheeler MR#: [id number] : 1960 Acct:[id number] Age/Sex: 64 / F ADM Date: 5 Loc: 3T Room: [address] [place] [address] Type: ADM IN Attending Dr: Diane Smith [...] Raf Potter M.D.11/24/2024 2:48 PM Dictation Location: [place] [address] Transcribed By: [facility] 11/24/24 1448 Dictated By: Raf Potter MD 11/24/24 1446 Signed By: <Electronically signed by Raf Potter MD in [place]> 11/24/24 1448 Author Irena Haro [facility] Authored November 25, 2024 3:23 pm Report Dictated Date/Time Dictated By Status Radiology Report November 25, 2024 3:23pm Irena Haro MD completed [facility] [place] [address] Nuclear Medicine Report Signed Patient: Renate Wheeler MR#: [id number] : 1960 Acct:[id number] Age/Sex: 64 / F ADM Date: 5 Loc: Room: [address] [place] [address] Type: ADM IN Attending Dr: Demian Dorantes [...] were reviewed as well as the computer quantification. There was uniform uptake of the radiotracer with no perfusion defects identified. On the gated portion of the study, there was uniform thickening with an overall ejection fraction calculated at 68%. TID score was within normal limits. CONCLUSION: 1. Gated spect Sestamibi study is within normal limits. 2. Left ventricular function was preserved. Impression dictated by: Irena Haro M.D.11/25/2024 3:24 PM Dictation Location: [place] [address] Transcribed By: [facility] 11/25/24 1524 Dictated By: Irena Haro MD 11/25/24 1523 Signed By: <Electronically signed by Irena Haro MD in [place]> 11/25/24 1524 Vital Signs Vital Reading Result Reference Range Collection Date/Time Height 60 [in_i] November 25, 2024 2:27pm Weight 60.40 kg November 26, 2024 5:28am Body Temperature 98.0 [degF] 97.6-99.0 November 26, 2024 8:10am Heart Rate 69 /min 60-100 November 26, 2024 12:12pm Respiratory rate 18 /min 12-24 November 26, 2024 12:12pm Oxygen saturation by Pulse oximetry 96 % 95-100 November 26, 2024 12:1 2pm BP Systolic 191 mm[Hg] 100-140 November 26, 2024 12:12pm BP Diastolic 79 mm[Hg] 60-100 November 26, 2024 12:12pm Advance Directives Advance Directive Response Recorded Date/ Time Advance Directives No April 09, 2024 11:42am Insurance Providers Guarantor Ashok Calix Address [address] [place] [phone] Contact Info. Home Phone: Payer Policy Id Subscriber's Name Subscriber Id Effectiv e Date Expiration Date Medicare [id number] Ashok Calix [id number] Encounters Encounter Location(s) Arrival/Admit Date Discharge/Depart Date Provider(s) Discharged Inpatient -[facility] November 23, 2024 6:09pm November 26, 2024 2:05pm Demian Dorantes MD Non-patient / Non-visit -[facility] Neph [place] November 24, 2024 9:22am Tyler Valencia MD Non-patient / Non-visit -[facility] Cardiology November 24, 2024 10:08am Galo Mcmullen MD Departed Referred -[facility] February 11, 2025 6:40pm February 11, 2025 6:41pm Primo Thompson DO Recent Diagnosis Onset Date Admit Date Anemia of renal disease Unknown November 6:09pm CKD stage 3b, GFR 30-44 ml/min Unknown A 2024 6:09pm 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, Unknown November 23, 2024 6:09pm Hydroureteronephrosis Unknown November 23, 2024 6:09pm Hypertension Unknown November 23, 2024 6:09pm Neurogenic bladder Unknown November 23 6:09pm Overactive bladder Unknown November 23 6:09pm Acute electrocardiogram changes Unknown November 23, 2024 6:09pm Acute kidney injury superimposed on CKD Unknown November 23, 2024 6:09pm Cellulitis of right foot Unknown November 232024 6:09pm Chest pain Unknown November 23, 2024 6:09pm Foreign body in right foot Unknown November 23, 2024 6:09pm Hyperkalemia Unknown November 23, 2024 6:09pm Hypertensive emergency Unknown November 6:09pm Diabetes Unknown November 23, 2024 6:09pm Functional Status Observation Response Date Recorded Dressing Patient at Baseline November 26, 1:48pm Eating Patient at Baseline November 26 025 1:48pm Bathing Patient at Baseline November 26, 025 1:48pm Disability Status Patient at Baseline November 26, 2024 1:48pm Mental Status Observation Response Date Recorded Cognitive Status Patient at Baseline November 26, 2024 1:48pm Cognitive/Mental Status Assessments Assessments Diagnosis Onset Date Resolution Status Admit Date Anemia of renal disease acute A 2024 6:09pm CKD stage 3b, GFR 30-44 ml/min acute November 23, 2024 6:09pm 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, acute November 23, 2024 6:09pm Hydroureteronephrosis acute Apr 2024 6:09pm Hypertension acute November 23, 2 025 6:09pm Neurogenic bladder acute November 23, 2024 6:09pm Overactive bladder acute November 23, 2024 6:09pm Acute electrocardiogram changes reso lved November 23, 2024 6:09pm Acute kidney injury superimp osed on CKD resolved November 23, 2024 6:09pm Cellulitis of right foot resolved November 23, 2024 6:09pm Chest pain resolved November 23 6:09pm Foreign body in right foot resolved November 23, 2024 6:09pm Hyperkalemia resolved November 23 025 6:09pm Hypertensive emergency resolved Ap 2024 6:09pm Diabetes deleted November 23 6:09pm Plan of Treatment Future Tests Future scheduled test information is unavailable Pending Tests Test Name Ordered Date Scheduled Date Urine Culture February 11, 2025 6:40pm Future Visits Future appointment information is unavailable Referrals to Other Providers Reason for Referral Referral Start Date Provider Provider Contact Information Provider Address Please follow-up with [facility] for [facility] bladder and recurrent [facility] retention [facility] follow up appointment. Please call and reschedule if needed. MARKO Newell Work Phone: [address] [facility] [phone] Follow up appointment at [place] location: Cory Angeles DPM Work Phone: [phone] [place] [phone] [facility] follow up appointment. Please call and reschedule if needed. Eli Sprague MD Work Phone: [address] [place] [phone] Future Procedures Procedure Name Ordered Date Scheduled Date DME Home Medical Equipment November 24, 2024 11:18 am 99 Days Admit Status Order November 23, 2024 6:09pm November 23, 2024 6:09pm Discharge Order November 26, 2024 10:54am November 10:54am Consult to Nephrology November 23, 2024 6:49pm Apr 2024 6:50pm Consult to Podiatry November 23, 2024 7:04pm November 23, 2024 7:04pm Urine Culture February 12, 2025 1:31pm January 6:40pm Future Medications Future medication information is unavailable Patient Instructions Instruction Admit Date Know your Meds November 23, 2024 6:09 pm Goals Acute Goals Author Authored Date Exhibit optimal tissue perfu augusto * Exhibits adequate oxygenation and ventilation * Exhibits adequate cardiac output * Regains stable cardiac rhythm * Maintains optimal activity level * Maintains balanced intake and output [facility] November 26, 2024 12:36am Maintain/increase activity levels * Understands factors that may lead to activity intolerance * Helps perform self care activities * Maintains maximum range of motion * Increase/regain muscle mass and strength * Maintains VS WNL during activity * Maintain intact skin integrity Updated: 10/03/2022 [facility] [place] November 26, 2024 2:34pm Absence of new skin breakdow n [facility] [place] November 26, 2024 2:34pm Wound healing [facility] November 26, 2024 12:35am Fall Prevention 2022 [facility] [place] November 26, 2024 2:34pm Skin integrity intact [facility] [place] November 26, 2024 2:34pm Preferences Type Detail Treatment Intervention Code Status: Full Code
[2025-02-12] MEDS: PREGABALIN 75 MG CAPSULE PO (21:02)
[2025-02-12] MEDS: ATORVASTATIN CALCIUM 20 MG TABLET PO (21:02)
[2025-02-12] MEDS: INSULIN GLARGINE 300 UNIT/3 ML INSULN.PEN 28 UNIT SQ (21:05)
[2025-02-12 21:10] LABS: Glucometer 263 mg/dL (74-106)
[2025-02-13] MEDS: HYDROCODONE/ACET 5-325 MG TABLET 1 TAB PO ×2 (00:04→08:58)
[2025-02-13 04:00] VITALS: BP 137/71; PULSE 62; TEMP 36.4; O2SAT 96
--- OUTSIDE RECORDS SUMMARY | 2025-02-13 05:22 | XMS_ITS ---
Author Organization [facility] [place] Address [address] [place] [address] Care Team Providers Care Horse And Wagon Driver Name Role Phone Ramirez Marr Primary Care Provider REASON FOR VISIT TCM [facility]- Attempted X 1 Encounters Encounter Location Date Provider Diagnosis [facility] [address] [place] [address] 02/13/2025 Ramirez Marr Plan Of Treatment No Information Progress Notes * Renate CARNES MDOB: 8 (64 yo F)Acc No.[id number]:02/13/2025 Patient: Renate MARIE :1960 A ge:64 Y S ex:Female Address:[address] [place] [address], [phone] * true * Date: Generated for Lisai ng/Famichoacanog/eTransmitting on: 0 02/26/2025 03:04 PM EDT
[2025-02-13 06:03] LABS: Basophils Percent Auto 0.6 % (0.2-2.0); Eosinophils Absolute Auto 0.1 10^3/uL (0.0-0.7); Eosinophils Percent Auto 2.1 % (0.9-7.0); Hematocrit 28.9 % (36.0-48.0); Hemoglobin 9.4 g/dL (12.0-16.0); Immature Granulocytes Abs Auto 0.04 10^3/uL (0.00-0.03); Immature Granulocytes Pct Auto 0.6 % (0.0-0.5); Lymphocytes Absolute Auto 2.2 10^3/uL (1.2-3.8); Lymphocytes Percent Auto 35.3 % (20.5-60.0); Mean Corpuscular HGB Conc 32.5 g/dL (29.9-35.2); Mean Corpuscular Hemoglobin 25.4 pg (26.7-34.0); Mean Corpuscular Volume 78.1 fL (81.0-99.0); Mean Platelet Volume 11.1 fL (9.5-13.5); Monocytes Absolute Auto 0.4 10^3/uL (0.3-0.8); Monocytes Percent Auto 6.6 % (1.7-12.0); Neutrophils Absolute Auto 3.4 10^3/uL (1.4-6.5); Neutrophils Percent Auto 54.8 % (43.0-75.0); Platelet Count 203 10^3/uL (150-450); Red Cell Distribution Width 14.5 % (11.0-15.0); White Blood Count 6.2 10^3/uL (4.0-11.0)
[2025-02-13 06:19] LABS: Alanine Aminotransferase 16 U/L (14-59); Albumin Globulin Ratio 0.5; Albumin Level 2.2 g/dL (3.4-5.0); Alkaline Phosphatase 95 U/L (46-116); Anion Gap 14.4; Aspartate Amino Transferase 19 U/L (15-37); BUN Creatinine Ratio 14.6; Bilirubin Total 0.2 mg/dL (0.2-1.0); Calcium 8.5 mg/dL (8.5-10.1); Carbon Dioxide 23.7 mmol/L (21.0-32.0); Chloride 109 mmol/L (98-107); Estimated GFR (African America 19 (>=60 mL/min/1.73m^2); Estimated GFR (Non-African Ame 16 (>=60 mL/min/1.73m^2); Globulin 4.5 g/dL; Glucose 158 mg/dL (74-106); Magnesium 1.5 mg/dL (1.8-2.4); Potassium 5.1 mmol/L (3.5-5.1); Sodium 142 mmol/L (136-145); Total Protein 6.7 g/dL (6.4-8.2)
--- NOTE | 2025-02-13 06:20 | PM.PN ---
Exam Constitutional Vital Signs, click to edit/add: Last Vital Signs Temp 97.6 F 02/13/25 04:00 Pulse 62 02/13/25 04:00 Resp 18 02/13/25 04:00 BP 137/71 02/13/25 04:00 Pulse Ox 96 02/13/25 04:00 O2 Del Method Room Air 02/13/25 04:00 Progress Note: Objective Labs Labs: Short CBC 02/13/25 Range/Units 05:44 WBC 6.2 (4.0-11.0) 10^3/uL Hgb 9.4 L (12.0-16.0) g/dL Hct 28.9 L (36.0-48.0) % Plt Count 203 (150-450) 10^3/uL BMP 02/12/25 05:46 Sodium 142 Potassium 4.8 Chloride 111 H Carbon Dioxide 19.7 L BUN 49.0 H Creatinine 3.10 H Glucose 103 Calcium 8.8 Liver Function 02/12/25 Range/Units 05:46 Total Bilirubin 0.2 (0.2-1.0) mg/dL AST 18 (15-37) U/L ALT 10 L (14-59) U/L Alkaline Phosphatase 100 (46-116) U/L Albumin 2.2 L (3.4-5.0) g/dL Progress Note: A&P Assessment and Plan (1) ANATOLIY (acute kidney injury): (2) Hyperkalemia: (3) CKD (chronic kidney disease): Qualifiers: Chronic kidney disease stage: unspecified stage Qualified Code(s): N18.9 - Chronic kidney disease, unspecified (4) UTI (urinary tract infection): Qualifiers: Hematuria presence: without hematuria Urinary tract infection type: site unspecified Qualified Code(s): N39.0 - Urinary tract infection, site not specified (5) Bilateral hydronephrosis: (6) Neurogenic bladder: Plan (1) ANATOLIY (acute kidney injury): (2) Hyperkalemia: (3) CKD (chronic kidney disease): Qualifiers: Chronic kidney disease stage: unspecified stage Qualified Code(s): N18.9 - Chronic kidney disease, unspecified (4) UTI (urinary tract infection): Qualifiers: Hematuria presence: without hematuria Urinary tract infection type: site unspecified Qualified Code(s): N39.0 - Urinary tract infection, site not specified (5) Bilateral hydronephrosis: (6) Neurogenic bladder:
[2025-02-13 08:00] VITALS: BP 153/75; PULSE 60; TEMP 36.6; O2SAT 94
--- NOTE | 2025-02-13 08:02 | P.DS_ITS ---
DS: Providers Provider Date of admission: 02/12/25 10:00 Primary care physician: Non-Staff PhysicianMD DS: Diagnosis Discharge Diagnosis (1) ANATOLIY (acute kidney injury): (2) Hyperkalemia: (3) CKD (chronic kidney disease): Qualifiers: Chronic kidney disease stage: unspecified stage Qualified Code(s): N18.9 - Chronic kidney disease, unspecified (4) UTI (urinary tract infection): Qualifiers: Hematuria presence: without hematuria Urinary tract infection type: site unspecified Qualified Code(s): N39.0 - Urinary tract infection, site not specified (5) Bilateral hydronephrosis: (6) Neurogenic bladder: Plan (1) ANATOLIY (acute kidney injury): (2) Hyperkalemia: (3) CKD (chronic kidney disease): Qualifiers: Chronic kidney disease stage: unspecified stage Qualified Code(s): N18.9 - Chronic kidney disease, unspecified (4) UTI (urinary tract infection): Qualifiers: Hematuria presence: without hematuria Urinary tract infection type: site unspecified Qualified Code(s): N39.0 - Urinary tract infection, site not specified (5) Bilateral hydronephrosis: (6) Neurogenic bladder: DS: Summary Hospital Course Hospital Course: Patient mated with acute kidney injury and hyperkalemia, secondary to chronic kidney disease, complicated by acute UTI and bilateral hydronephrosis, she does feel much improved today, will maintain current antibiotics with cefdinir as an outpatient, she can follow-up with me in the office later this week or next, follow-up with her repairer hairspring within the next week as well Time Spent with Patient Time attestation: Total time spent providing and/or coordinating discharge services: Exam Constitutional Vital Signs, click to edit/add: Last Vital Signs Temp 97.6 F 02/13/25 04:00 Pulse 62 02/13/25 04:00 Resp 18 02/13/25 04:00 BP 137/71 02/13/25 04:00 Pulse Ox 96 02/13/25 04:00 O2 Del Method Room Air 02/13/25 04:00 Documenting provider has reviewed patient's vital signs: yes Common normals: no apparent distress Respiratory Common normals: normal respiratory effort Cardio Common normals: regular rate and regular rhythm GI Common normals: Normal to inspection, nondistended, normoactive bowel sounds present, soft to palpation and no hepatosplenomegaly Back & Pelvis Common normals: no CVA tenderness Extremity Common normals: normal to inspection and no clubbing, cyanosis or edema DS: Data Data Completed and Pending Labs on day of discharge: Labs from last 24 hours 02/13/25 02/12/25 05:44 21:05 WBC 6.2 RBC 3.70 L Hgb 9.4 L Hct 28.9 L MCV 78.1 L MCH 25.4 L MCHC 32.5 RDW 14.5 Plt Count 203 MPV 11.1 Neut % (Auto) 54.8 Lymph % (Auto) 35.3 Dickinson % (Auto) 6.6 Eos % (Auto) 2.1 Baso % (Auto) 0.6 Neut # (Auto) 3.4 Lymph # (Auto) 2.2 Dickinson # (Auto) 0.4 Eos # (Auto) 0.1 Baso # (Auto) 0.0 Abs Immat Gran (auto) 0.04 H Imm/Tot Granulo (auto) 0.6 H Sodium 142 Potassium 5.1 Chloride 109 H Carbon Dioxide 23.7 Anion Gap 14.4 BUN 44.0 H Creatinine 3.01 H Est GFR ( Amer) 19 L Est GFR (Non-Af Amer) 16 L BUN/Creatinine Ratio 14.6 Glucose 158 H Calcium 8.5 Magnesium 1.5 L Total Bilirubin 0.2 AST 19 ALT 16 Alkaline Phosphatase 95 Total Protein 6.7 Albumin 2.2 L Globulin 4.5 Albumin/Globulin Ratio 0.5 POC Glucose 263 H Preliminary micro results at discharge 02/11/25 18:40 Urine Culture - Preliminary Urine,Clean Catch Pending - Specimen sent to [facility] Discharge Plan Discharge Disposition: Home, Self-Care Condition: Fair Discharge Medications: New magnesium oxide 400 mg (241.3 mg magnesium) Tablet 400 mg PO BID Qty: 60 11RF cefdinir 300 mg capsule 600 mg PO DAILY Qty: 20 0RF Continued insulin lispro 100 unit/mL insulin pen 1 sliding scale dose SUBCUT QID Patient Comments: INJECT FOUR UNITS SUBCUTANEOUSLY (UNDER THE SKIN) at BREAKFAST, INJECT 6 (SIX) UNITS at lunch then INJECT EIGHT UNITS SUBCUTANEOUSLY (UNDER THE SKIN) at dinner, plus sliding scale (max 30 UNITS) pregabalin 150 mg capsule 150 mg PO Q8H ferrous sulfate [FeroSul] 325 mg (65 mg iron) tablet 325 mg PO DAILY insulin glargine [Lantus Solostar U-100 Insulin] 100 unit/mL (3 mL) insulin pen 28 unit subcut QPM Qty: 0 0RF hydrocodone-acetaminophen 7.5-325 mg tablet 1 tab PO Q8H PRN (Reason: pain) B-complex with vitamin C [Support-500] Capsule 1 cap PO DAILY metoprolol succinate 50 mg tablet extended release 24 hr 50 mg PO DAILY nitroglycerin 0.4 mg tablet, sublingual 0.4 mg sublingual Q5M PRN (Reason: Pain) Qty: 10 0RF Rx Instructions: do not exceed 3 doses per episode, call MD or go to ED if no response to SL Nitro amlodipine 10 mg tablet 10 mg PO DAILY atorvastatin [Lipitor] 20 mg tablet 20 mg PO .QHS Activity: resume usual activities as tolerated Diet: advance to your usual diet Print Language: Romanian Patient Instructions: Cefdinir (By mouth), Magnesium (By mouth), Urinary Tract Infection in Women (DC) Forms: Portal Instructions Follow Up Appointments: February 18 @ 11:30am with Dr. Marr [address] [facility] [phone] *bring insurance card, photo ID and list of medications to the appt.* March 11 @ 4:20pm with Dr. Sprague - [facility]ph[facility] [address] [phone]
--- NOTE | 2025-02-13 08:34 | CM.NOTE ---
Rounds made with Dr. Marr, pt will discharge to home today and f/u with Dr. Marr as a new patient and Dr. Garcia.
[2025-02-13] MEDS: FOLIC ACID/VIT B6/VIT B12 TABLET 1 TAB PO (08:58)
[2025-02-13] MEDS: AMLODIPINE BESYLATE 5 MG TABLET 10 MG PO (08:58)
[2025-02-13] MEDS: PREGABALIN 75 MG CAPSULE PO (08:58)
[2025-02-13] MEDS: MAGNESIUM OXIDE 400 MG TABLET PO (08:58)
[2025-02-13] MEDS: FERROUS SULFATE 325 MG TABLET PO (08:58)
[2025-02-13] MEDS: METOPROLOL SUCCINATE 50 MG TAB.ER.24H PO (08:58)
[2025-02-13] MEDS: FLUTICASONE PROPIONATE 50 MCG NASAL SPRAY 1 SPRAY NS (08:59)
--- NOTE | 2025-02-13 15:11 | CM.NOTE ---
Urine culture tiger txt to Dr. Marr.
--- NOTE | 2025-02-16 08:28 | PC.NURSE ---
Cnc Service Technician reviewed Final Urine culture. Cnc Service Technician gave the results to Dr. Elizondo for review. No new orders at this time.
--- NOTE | 2025-02-17 14:24 | CM.DCFOLLOWU ---
Person spoke with: Renate How are you feeling? Feeling great How is your pain? No pain Did you understand your discharge instructions? Yes Do you have any questions about your discharge instructions? No Were you given any prescriptions at discharge? Yes Were you able to get your prescriptions filled? Pt has not picked up medication, discussed with pt importance of medication and taking as prescribed d/t hospital diagnosis Do you understand how to take your medications as ordered? Yes Do you have any questions about your follow up appointment and do you plan to keep your follow up appointment? Appointments are all scheduled and pt plans on going Is there anything else that you would like to discuss? No Questions/Comments/Concerns/Other:
--- OUTSIDE RECORDS SUMMARY | 2025-02-19 07:30 | XMS_ITS ---
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 TCM TBH- hyperkalemia, kidney failure, hypertension, Not following a specific sliding scale for Humalog, just dosing herself, Testing sugars at least three times daily, sometimes will check if feels high - poking finger, Off balance frequently- sometimes dizziness and sometimes just off balance-falling every couple of days Medications Medication SIG (Take, Route, Frequency, Duration) Notes Start Date End Date Status Iron Active Lantus SoloStar 100 u/ml 40 units subQ at HS Active metFORMIN HCl Unkno wn HumaLOG KwikPen Acti ve amLODIPine Besylate 10 MG 1 tablet Orall y Once a day 02/19/2025 Active Metoprolol Succinate 50 MG 1 capsule Ora lly Once a day 02/19/2025 Active Lyrica 150 MG 1 capsule orally thr ee times daily Active Cardizem Unknown Schaller 325 mg-5 mg 1.5 tablet orally th ree times daily Active Social History Tobacco Use: Social History Observation Description Date Details (start date - stop date) Never Smoker NA - NA Tobacco Use/Smoking Question Answer Notes Patient is a nonsmoker AUDIT-C (Standard) Question Answer Notes Did you have a drink contain ing alcohol in the past year? Yes How often did you have a dri nk containing alcohol in the past year? Never (0 point) How many drinks did you have on a typical day when you were drinking in the past year? 1 or 2 drinks (0 point) How often did you have six o r more drinks on one occasion in the past year? Less than monthly (1 point) Points 1 Interpretation Negative Problems Problem Type SNOMED Code ICD Code Onset Dates Problem Status W/U Status Risk Notes Problem Osteoporosis (91624599) Osteoporosis (M81.0) Active confirmed Problem Liver disease (057399510) Liver disease (K76.9) Active confirmed Problem Irritable bowel syndrome (71095622) Irritable bowel syndrome (K58.9) Active confirmed Problem History of cancer (126648564) History of cancer (Z85.9) Active confirmed Problem Hypercholesterolemia (98009570) Hypercholesterolemia (E78.00) Active confirmed Problem Anemia (184561856) Anemia (D64.9) Active confir med Problem Asthma (889392919) Asthma (J45.909) Active conf irmed Vital Signs Weight 130.2 lbs 02/19/2025 Height 60 in 02/19/2025 Blood pressure systolic 144 mm Hg 02/20/20 25 Blood pressure diastolic 86 mm Hg 025 BMI 25.43 kg/m2 02/19/2025 Encounters Encounter Location Date Provider Diagnosis [facility] [address] [place] [address] 02/19/2025 Ramirez Hoy Liver disease K76.9 ; Hypercholesterolemia E78.00 ; Diabetic peripheral neuropathy E11.42 and BP (high blood pressure) I10 Assessments Encounter Date Diagnosis (ICD Code) Assessment Notes Treatment Notes Treatment Clinical Notes Section Notes 02/19/2025 Liver disease (ICD-1 0 - K76.9) 02/19/2025 Hypercholesterolemia (ICD-10 - E78.00) 02/19/2025 Diabetic peripheral neuropathy (ICD-10 - E11.42) 02/19/2025 BP (high blood press ure) (ICD-10 - I10) Plan Of Treatment Medication Medication Name Sig Start Date Stop Date Notes Lantus SoloStar 100 u/ml 40 units subQ at HS Progress Notes * Renate CARNES MDOB: 8 (64 yo F)Acc No.[id number]:02/19/2025 New Patient Patient: Renate MARIE Provider: Primo Marr ([facility])MD :1960 A ge:64 Y S ex:Female Date:02/19/2025 [facility] Check In:10:57 AM ESTCheck O ut:12:09 PM EST Subjective: * Chief Complaints: * N P TCM TBH- hyperkalemia, kidney failure, hypertensionNot following a specific sliding scale for Humalog, just dosing herselfTesting sugars at least three times daily, sometimes will check if feels high - poking fingerOff balance frequently- sometimes dizziness and sometimes just off balance- falling every couple of days * HPI: D epression Screening: PHQ-9 L ittle interest or pleasure in doing things?Several days F eeling down, depressed, or hopeless S everal days T rouble falling or staying asleep, or sleeping too much N early every day F eeling tired or having little energy N early every day P oor appetite or overeating M ore than half the days F eeling bad about yourself or that you are a failure, or have let yourself or your family down S everal days T rouble concentrating on things, such as reading the newspaper or watching television S everal M oving or speaking so slowly that other people could have noticed; or the opposite, being so fidgety or restless that you have been moving around a lot more than usual S everal days T houghts that you would be better off or of hurting yourself in some way N ot at all T otal Score 1 3 I nterpretation M oderate Depression dm -= Sugars running - 200 - seen in er - for hyperkalemia - seen nephrology - hyperkalemia - better last time checked seekng pain specialist - arm pain. * ROS: E ENT: hearing changes d enies. v isual changes d enies.?non-healing mouth sores d enies. s wollen glands or neck lumps d enies. h oarseness d enies. s ore throat d enies. d ifficulty swallowing d enies. n ose bleeds d enies. n [place] congestion d enies. e ar ache d enies. e ar discharge?denies. r inging in ears d enies. l ight sensitivity d enies. e ye pain d enies. b lurring d enies. e ye irritation d enies. d ouble vision d enies.?vision loss d enies. G eneral/Constitutional: Sweats: D enies. F atigue d enies. S leep problems d enies. A norexia d enies. M alaise d enies. W eight loss d enies.?Fatigue or Weakness d enies. F ever or Chills d enies. C ardiovascular: Shortness of Breath w/lying flat d enies. L ightheadedness/dizziness d enies. C hest tightness/ heavy pressure d enies. S welling of legs, ankles, or feet d enies. W aking up with shortness of breath d enies. C hest pain denies. P alpitations d enies. W eight gain d enies. R espiratory: Chronic or frequent cough d enies. C oughing up blood?denies. D ifficulty breathing d enies. P roductive cough d enies. S noring?denies. S hortness of breath that awakens from sleep (PND) d enies. C hest pain d enies. S putum production d enies. W heezing d enies. M usculoskeletal: Joint pain d enies. J oint Fluid d enies. B ack pain d enies. K nee pain d enies. N gerda pain d enies. J oint Stiffness d enies. M uscle cramps d enies. W eakness of muscles d enies. A rthritis d enies. M uscle aches d enies. P ain in shoulder(s) d enies. S wollen joints d enies. * Active Problem List J45.909 Asthma Modified On:02/19/2025/U Status:confirmed D64.9 Anemia Modified On:02/19/2025/U Status:confirmed M81.0 Osteoporosis Modified On:02/19/2025/U Status:confirmed K58.9 Irritable bowel synd miracle Modified On:02/19/2025U Status:confirmed K76.9 Liver disease Modified On:02/19/2025U Status:confirmed Z85.9 History of cancer Modified On:02/19/2025U Status:confirmed E78.00 Hypercholesterolemia Modified On:02/19/2025 Status:confirmed S92.302P Closed fracture of n gerda of metatarsal bone of left foot with malunion, subsequent encounter Modified On:02/14/2023U Status:confirmed Z89.9 History of amputatio n Modified On:01/26/2023U Status:confirmed E11.42 Diabetic peripheral neuropathy Modified On:01/26/2023 Status:confirmed E11.42 Type 2 diabetes maria m itus with diabetic polyneuropathy Modified On:01/26/2023 Status:confirmed S92.352A Displaced fracture o f fifth metatarsal bone, left foot, initial encounter for closed fracture Modified On:12/14/2022 Status:confirmed M79.672 Pain in left foot Modified On:12/14/2022U Status:confirmed M14.672 Charcot's joint, lef t ankle and foot Modified On:01/03/2023U Status:confirmed R07.9 Chest pain Modified On:01/20/2023U Status:confirmed E11.621 Type 2 diabetes maria m itus with foot ulcer Modified On:09/01/2023U Status:confirmed L97.521 Non-pressure chronic ulcer of other part of left foot limited to breakdown of skin Modified On:01/26/2023U Status:confirmed L97.525 Non-pressure chronic ulcer of other part of left foot with muscle involvement without evidence of necrosis Modified On:02/14/2023U Status:confirmed L97.422 Chronic ulcer of lef t heel with fat layer exposed Modified On:06/07/2023U Status:confirmed L97.412 Chronic ulcer of rig ht heel with fat layer exposed Modified On:09/01/2023U Status:confirmed L97.411 Non-pressure chronic ulcer of right heel and midfoot limited to breakdown of skin Modified On:06/07/2023U Status:confirmed E11.622 Controlled type 2 di abetes mellitus with other skin ulcer, unspecified whether penitentiary insulin use Modified On:09/01/2023 Status:confirmed L97.822 Non-pressure chronic ulcer of other part of left lower leg with fat layer exposed Modified On:11/13/2023 Status:confirmed E11.622 Type 2 diabetes maria m itus with other skin ulcer Modified On:11/13/2023 Status:confirmed L97.522 Chronic ulcer of lef t foot with fat layer exposed Modified On:01/08/2024U Status:confirmed E11.9 Diabetes mellitus Modified On:06/10/2024 Status:confirmed I10 BP (high blood press ure) Modified On:06/10/2024 Status:confirmed D50.9 Anemia, iron deficie ncy Modified On:06/10/2024 Status:confirmed * Medical History: * Surgical History: H istory of arthroscopy of the shoulder History of cholecystectomy History of hysterectomy History of musculoskeletal procedures Ankel; Elbow Nerve History of neck surgery Surgical / procedural history Wrist Carpal Tunnel amputation mid left first metatarsal 06/13/2022ataract extraction CHOLECYSTECTOMY Knee arthroscopy Nephrectomy * Hospitalization/Major Diagno stic Procedure: * Family History: F ather: , hyperlipidemia, Heart Attack, diagnosed with Unspecified essential hypertension. M other: , hyperlipidemia, osteoporosis, stroke, diagnosed with Unspecified essential hypertension. B rother(s): hyperlipidemia, heart attack. S ister(s): hypertension, hyperlipidemia, Heart Attack, osteoporosis, depression, alcoholism, colon polyp, kidney disease, CHF, stroke, diagnosed with Diabetes mellitus without mention of complication, type II or unspecified type, not stated as uncontrolled, Unspecified essential hypertension. M igrated Family History:: Family history of diabetes mellitus;Family history of arthritis;Family history of cardiac problems Father;Family history of malignant neoplasm of the large intestine Grandmother; Cousin;. 4 brother(s) , 5 sister(s) . 2 son(s) , 2 daughter(s) - healthy. . * Social History: T obacco Use: T obacco Use/Smoking P atient is a n onsmoker D rug/Alcohol: A SYED-C (Standard) D id you have a drink containing alcohol in the past year? Y es H ow often did you have a drink containing alcohol in the past year? N ever (0 point) H ow many drinks did you have on a typical day when you were drinking in the past year? 1 or 2 drinks (0 point) H ow often did you have six or more drinks on one occasion in the past year? L ess than monthly (1 point) P oints 1 I nterpretation N egative * Medications: T akingamLODIPine Besylate 10 MG Tablet 1 tablet Orally Once a day HumaLOG KwikPen Iron Lantus SoloStar 100 u/ml injection 30 units subQ at HS Lyrica(Pregabalin) 150 MG Capsule 1 capsule orally three times daily Metoprolol Succinate 50 MG Capsule ER 24 Hour Sprinkle 1 capsule Orally Once a day Schaller 325 mg-5 mg tablet 1.5 tablet orally three times daily Taking amLODIPine Besylate 10 MG Tablet 1 tablet Orally Once a day Taking HumaLOG KwikPen Taking Iron Taking Lantus SoloStar 100 u/ml injection 30 units subQ at HS Taking Lyrica(Pregabalin) 150 MG Capsule 1 capsule orally three times daily Taking Metoprolol Succinate 50 MG Capsule ER 24 Hour Sprinkle 1 capsule Orally Once a day Taking Schaller 325 mg-5 mg tablet 1.5 tablet orally three times daily UnknownCardizem(dilTIAZem HCl) metFORMIN HCl Medication List reviewed and reconciled with the patientUnknown Cardizem(dilTIAZem HCl) Unknown metFORMIN HCl Medication List reviewed and reconciled with the patient * Allergies: N .K.D.A.no[Allergies Verified] Objective: * Vitals: W t:130.2lbs, Ht: 60 in, BP:144/86mm Hg, BMI:25.43Index, Ht-cm: 152.4 cm, Wt-k.06 kg. * Examination: P hysical Exam: GENERAL: w ell developed, well nourished, in no acute distress. HEAD: n ormocephalic/atraumatic. EYES: p upils equal, round and reactive to light, conjunctivae and sclerae normal. EARS: n o deformity or lesion of external ear, canals and TM appear normal bilaterally, TM's intact, not inflamed with normal light reflex, hearing grossly normal to conversational speech. NOSE: n o deformity, discharge, inflammation, or lesions.? MOUTH: m ucous membranes moist, normal oropharynx and posterior pharynx without lesions or exudates, tongue normal, dentition normal. NECK: n gerda supple, no masses or palpable cervical nodes, trachea midline, thyroid without nodules, masses, tenderness, or enlargement. CHEST: n o chest wall deformity, no chest wall tenderness.? LUNGS: n ormal respiratory effort and clear to auscultation, no wheezes, rales, or rhonchi, good air exchange. CARDIO: r egular rate and rhythm, normal S1 and S2, nor murmur, rub, or gallop. PULSES: n ormal capillary refill. ABDOMEN: s oft, non-distended, non-tender, no masses. MUSCULOSKELETAL: n o deformity or scoliosis noted, normal range of motion, joints normal, no erythema, edema, effusion, or ecchymosis. EXTREMITY: n o clubbing, cyanosis, edema, or deformity with normal ROM in both upper and lower bilateral extremities. NEUROLOGIC: g rossly normal. SKIN: n o rashes, ulcerations, or suspicious lesions. LYMPH NODES: n o cervical adenopathy, nodes normal. MENTAL STATUS: a lert and oriented x3, normal mood and affect. Assessment: * Assessment: 1. L iver disease - K76.9 (Primary) 2 . H ypercholesterolemia - E78.00 3 . D iabetic peripheral neuropathy - E11.42 4 . B P (high blood pressure) - I10 Plan: * Treatment: * Procedure Codes: * Preventive Medicine: Screenings/Counseling: B LA ACTION PLAN Above Normal BMI Follow-up D ietary management education, guidance, and counseling F ALL RISK SCREENING Fall Risk Assessment: T wo or more falls without injury in the past year Had part of the toe and bone removed- thinks makes her off balance * * Sign off status: Completed Visit Status: C HK (Check Out) true * Provider: Primo Marr ([facility])MD Date: 02/19/2025 Generated for Printi ng/Famichoacanog/eTransmitting on: 02/26/2025 03:03 PM EDT History and Physical Notes * HPI (History of Present Illness) Category Sub-Category Detail Notes Category Not es Depression Screening PHQ-9 Little inte rest or pleasure in doing things: Several days dm -= Sugars running - 200 - seen in er - for hyperkalemia - seen nephrology - hyperkalemia - better last time checked seekng pain specialist - arm pain Feeling down, depressed, or hopeless: Se veral days Trouble falling or staying asleep, or sl eeping too much: Nearly every day Feeling tired or having little energy: N early every day Poor appetite or overeating: More than h gertrudis the days Feeling bad about yourself o r that you are a failure, or have let yourself or your family down: Several days Trouble concentrating on thi ngs, such as reading the newspaper or watching television: Several days Moving or speaking so slowly that other people could have noticed; or the opposite, being so fidgety or restless that you have been moving around a lot more than usual: Several days Thoughts that you would be b adriana off or of hurting yourself in some way: Not at all Total Score: 13 Interpretation: Moderate Depression Examination Category Sub-Category Detail Notes Category Not es Physical Exam GENERAL: well developed, well nourished, in no acute distress HEAD: normocephalic/atraum atic EYES: pupils equal, round and reactive to light, conjunctivae and sclerae normal EARS: no deformity or lesi on of external ear, canals and TM appear normal bilaterally, TM's intact, not inflamed with normal light reflex, hearing grossly normal to conversational speech NOSE: no deformity, discha rge, inflammation, or lesions MOUTH: mucous membranes mohit st, normal oropharynx and posterior pharynx without lesions or exudates, tongue normal, dentition normal NECK: neck supple, no mass es or palpable cervical nodes, trachea midline, thyroid without nodules, masses, tenderness, or enlargement CHEST: no chest wall deform ity, no chest wall tenderness LUNGS: normal respiratory e ffort and clear to auscultation, no wheezes, rales, or rhonchi, good air exchange CARDIO: regular rate and rhy thm, normal S1 and S2, nor murmur, rub, or gallop PULSES: normal capillary ref ill ABDOMEN: soft, non-distended, non-tender, no masses RECTAL: MUSCULOSKELETAL: no deformity or scol iosis noted, normal range of motion, joints normal, no erythema, edema, effusion, or ecchymosis EXTREMITY: no clubbing, cyanosi s, edema, or deformity with normal ROM in both upper and lower bilateral extremities NEUROLOGIC: grossly normal SKIN: no rashes, ulceratio ns, or suspicious lesions LYMPH NODES: no cervical adenopat hy, nodes normal MENTAL STATUS: alert and oriented x 3, normal mood and affect
--- OUTSIDE RECORDS SUMMARY | 2025-02-26 15:04 | XMS_ITS | Encounter Summary ---
Author Organization [facility] Address [address] [place] [address] Care Team Providers Care Unit Control Worker Name Role Phone Kofi Gotti MD Primary Care Provider [phone] Unallocated, [facility] Provider Primary Care Provi emiliana Latosha Olmstead LAW OFFICE MANAGER Unavailable [phone] Kofi Gotti MD Primary Care Provider Ninfa Canela MA Unavailable [phone] Unallocated, Noms Provider Primary Care Provi emiliana Encounter Details Date Type Department Care Team (Late st Contact Info) Description 04/29/2024 Orders Only [facility] [address] [place] [address] Latosha Olmstead, LAW OFFICE MANAGER [address] [place] [place] [address] Social History Tobacco Use Types Packs/Day Years [...] often do you attend chur ch or rastafari services? Never 10/11/2023 Do you belong to any clubs o r organizations such as bahai groups, unions, fraternal or athletic groups, or [...] Recorded Patient Health Questionnaire-2 Score 2 01/17/2024 [facility] [place] of Occupat ionva Health - Occupational Stress Questionnaire Answer Date [...] as of this encounter Plan of Treatment Not on file documented as of this encounter Procedures Procedure [...] * [facility] (04/29/2024 10:21 AM EDT) Latosha Olmstead LAW OFFICE MANAGER LAB CHG PERFORMABLES Final Resu lt documented in this encounter Visit Diagnoses Not on filedocumented in this encounter Additional Health Concerns Assessment Noted Time PHQ-9 Depression Total Score: 6 10/11/19 24 3:16 PM EST documented as of this encounter Care Teams Unit Control Worker Relationship Specialty Start Date End Date Kofi Gotti MD [address] [place] [address] PCP - General Family Medicine 10/09/23 06/10/24 Unallocated, Noms ProviderMD [address] [place] [address] PCP - General Family Medicine 06/11/24 06/19/24 Kofi Gotti MD [address] [place] [id number] PCP - General Family Medicine 06/20/24 02/02/25 Unallocated, Noms ProviderMD [address] [place] [address] PCP - General Family Medicine 02/03/25 Latosha Olmstead NP [address] [place] [address] Nurse Practitioner Family Medicine 06/11/24 02/02/25 Ninfa Canela MA [address] [place] [address] Family Medicine 09/13/24 01/30/25 documented as of this encounter
--- OUTSIDE RECORDS SUMMARY | 2025-02-26 15:04 | XMS_ITS | Encounter Summary ---
Author Organization [facility] Address [address] [place] [address] Care Team Providers Care Ice Guard Tester Name Role Phone Kofi Gotti MD Primary Care Provider [phone] Unallocated, Noms Provider Primary Care Provi emiliana Latosha Olmstead SCOUT SNIPER Unavailable [phone] Kofi Gotti MD Primary Care Provider [phone] Ninfa Canela MA Unavailable [phone] Unallocated, Noms Provider Primary Care Provi emiliana Encounter Details Date Type Department Care Team (Late st Contact Info) Description 04/18/2024 Orders Only [facility] [address] [place] [address] Latosha Olmstead, SCOUT SNIPER [address] [place] [address] Social History Tobacco Use Types Packs/Day Years [...] often do you attend chur ch or caodaism services? Never 10/11/2023 Do you belong to any clubs o r organizations such as hoahaoism groups, unions, fraternal or athletic groups, or [...] Recorded Patient Health Questionnaire-2 Score 2 01/17/2024 [facility] [place] of Occupat ionfl Health - Occupational Stress Questionnaire Answer Date [...] Chest Radiographic Cristiana ging us Latosha Olmstead SCOUT SNIPER IMG XR PROCEDURES Final Result documented in this encounter Visit Diagnoses Not on filedocumented in this encounter Additional Health Concerns Assessment Noted Time PHQ-9 Depression Total Score: 6 10/11/19 24 3:16 PM EST documented as of this encounter Care Teams Ice Guard Tester Relationship Specialty Start Date End Date Kofi Gotti MD [address] [place] [address] PCP - General Family Medicine 10/09/23 06/10/24 Unallocated, Jah Mirza MD [address] [place] [address] PCP - General Family Medicine 06/11/24 06/19/24 Kofi Gotti MD [address] [place] [address] PCP - General Family Medicine 06/20/24 02/02/25 Unallocated, Jah Mirza MD [address] [place] [address] PCP - General Family Medicine 02/03/25 Latosha Olmstead NP [address] [place] [address] Nurse Practitioner Family Medicine 06/11/24 02/02/25 Ninfa Canela MA [address] [place] [address] Family Medicine 09/13/24 01/30/25 documented as of this encounter
--- OUTSIDE RECORDS SUMMARY | 2025-02-26 15:04 | XMS_ITS | Encounter Summary ---
Author Organization [facility] Address [address] [place] [address] Care Team Providers Care Carton Forming Machine Adjuster Name Role Phone Kofi Gotti MD Primary Care Provider [phone] Lissette Matamoros LPN Unavailable Unavailable Unallocated, Noms Provider Primary Care Provi emiliana Latosha Olmstead NP Unavailable [phone] Kofi Gotti MD Primary Care Provider [phone] Ninfa Canela MA Unavailable [phone] Unallocated, Noms Provider Primary Care Provi emiliana Encounter Details Date Type Department Care Team (Late st Contact Info) Description 01/10/2024 Orders Only [facility] [address] [place] [address] Latosha Olmstead, BLOCK CLEANER [address] [place] [address] Social History Tobacco Use Types [...] How often do you attend chur or muslim services? Never 10/11/2023 Do you belong to [...] Recorded Patient Health Questionnaire-2 Score 0 12/21/[address] [facility] of Occupat ional Health - Occupational Stress [...] place to sleep or slept in a nursing home (including now)? No 10/11/2023 Comments Unknown Sex [...] Chest Radiographic Cristiana ging us Latosha Olmstead BLOCK CLEANER IMG XR PROCEDURES Final Result documented in this encounter Visit Diagnoses Not on filedocumented in this encounter Additional Health Concerns Assessment Noted Time PHQ-9 Depression Total Score: 6 10/11/19 24 3:16 PM EST documented as of this encounter Care Teams Carton Forming Machine Adjuster Relationship Specialty Start Date End Date Kofi Gotti MD [address] [place] [address] PCP - General Family Medicine 10/09/23 06/10/24 Unallocated, Jah Mirza MD [address] [place] [address] PCP - General Family Medicine 06/11/24 06/19/24 Kofi Gotti MD [address] [place] [address] PCP - General Family Medicine 06/20/24 02/02/25 Unallocated, Jah Mirza MD [address] [place] [address] PCP - General Family Medicine 02/03/25 Lissette Matamoros LPN Licensed Practical Nurse Family Medicine 01/22/2401/24/24 Latosha Olmstead NP [address] [place] [address] Nurse Practitioner Family Medicine 06/11/24 02/02/25 Ninfa Canela MA [address] [place] [address] Family Medicine 09/13/24 01/30/25 documented as of this encounter
--- OUTSIDE RECORDS SUMMARY | 2025-02-26 15:04 | XMS_ITS | Patient Health Record ---
Author Organization [facility] [place] Address [address] [place] [address] Care Team Providers Care Order Desk Clerk Name Role Phone DrissRamirez moore Primary Care Provider Allergies No Known Allergies Results Component Value Reference Range Notes CBC AUTO DIFF Reviewed date:04/28/2024 08:05:24 PM Interpretation: Performing Lab: Notes/Report: [facility] , White Blood Count 6.9 4.0-11.0 10 3/uL Red Blood Count 3.44 4.20-5.40 10 6/uL Hemoglobin 8.9 12.0-16.0 g/dL Hematocrit 28.1 36.0-48.0 % Mean Corpuscular Volume 81.7 81.0-99.0 fL Mean Corpuscular Hemoglobin 25.9 26.7-34.0 pg Mean Corpuscular HGB Conc 31.7 29.9-35.2 g/dL Red Cell Distribution Width 13.9 11.0-15.0 % Platelet Count 261 150-450 10 3/uL Mean Platelet Volume 10.5 9.5-13.5 fL Neutrophils Percent Auto 57.0 43.0-75.0 % Lymphocytes Percent Auto 31.9 20.5-60.0 % Monocytes Percent Auto 7.4 1.7-12.0 % Eosinophils Percent Auto 2.5 0.9-7.0 % Basophils Percent Auto 0.6 0.2-2.0 % Immature Granulocytes Pct Auto 0.6 0.0-0.5 % Neutrophils Absolute Auto 4.0 1.4-6.5 10 3/uL Lymphocytes Absolute Auto 2.2 1.2-3.8 10 3/uL Monocytes Absolute Auto 0.5 0.3-0.8 10 3/uL Eosinophils Absolute Auto 0.2 0.0-0.7 10 3/uL Basophils Absolute Auto 0.0 0.0-0.1 10 3/uL Immature Granulocytes Abs Auto 0.04 0.00-0.03 10 3/uL Performing Lab: see note ML - [facility] LB PROF CHEM 8 (BAS METB) Reviewed date:04/28/2024 08:05:24 PM Interpretation: Performing Lab: Notes/Report: [facility] , Sodium 143 136-145 mmol/L Potassium 4.5 3.5-5.1 mmol/L Chloride 113 98-107 mmol/L Carbon Dioxide 20.0 21.0-32.0 mmol/L Anion Gap 14.5 Glucose 97 74-106 mg/dL Blood Urea Nitrogen 29.0 7.0-18.0 mg/dL Creatinine 1.99 0.55-1.02 mg/dL Estimated GFR ( Va 30 >=60 Estimated GFR (Non- Parisa 25 >=60 BUN Creatinine Ratio 14.6 Calcium 7.8 8.5-10.1 mg/dL Performing Lab: see note ML - [facility] ECG 12 lead (Not yet reviewe d by provider) Interpretation: Performing Lab: Notes/Report: Source Facility: [facility]-[address] [place] [address] Electrocardiograph Report Signed Patient: AISLINN CARNES MR#: [id number] : 1960 Acct:[id number] Age/Sex: 64 / F ADM Date: 11/21/24 Loc: PST Attending Dr: Ramon Enrique D.P.M. Ordering Physician: Ramon Enrique D.P.M. Date of Service: 11/21/24 Procedure(s): ECG 12 lead Accession Number(s): [id number] cc: [facility] Test Date: 2024-11-21 Pat Name: AISLINN CARNES Department: Room: - Gender: Female Tub Chucker: : 1960 Requested By: RAMON ENRIQUE Order Number: [id number] Reading MD: PADILLA MUKHERJEE M.D. Measurements Intervals [place] Rate: 57 P: 52 IN: 183 QRS: 45 QRSD: 82 T: 54 QT: 452 QTc: 441 Interpretive Statements SINUS BRADYCARDIA Otherwise normal ECG Compared to ECG 09/04/2024 13:57:55 No significant change Electronically Signed On 11-22-2024 15:11:41 EDT by PADILLA MUKHERJEE M.D. Dictated By: PADILLA MUKHERJEE Signed By: 11/22/241510 DD/ 30 TD/TT: Hardboard Grinder: [place] [address] Electrocardiograph Report Signed Patient: SABRINA CARNES MR#: [id number] : 1960 Acct:[id number] Age/Sex: 64 / F ADM Date: 11/21/24 Loc: PST Attending Dr: Ramon Enrique D.P.M. Ordering Physician: Ramon Enrique D.P.M. Date of Service: 11/21/24 Procedure(s): ECG 12 lead Accession Number(s): [id number] cc: [facility] Test Date: 2024-11-21 Pat Name: AISLINN PAEZ Department: 55 Room: - Gender: Female Tub Chucker: : 1960 Requ ested By: RAMON ENRIQUE Order Number: [id number] Reading MD: PADILLA MUKHERJEE M.D. Measurements Intervals [place] Rate: 57 P: 52 IN: 183 QRS: 45 QRSD: 82 T: 54 QT: 452 QTc: 441 Interpretive Statements SINUS BRADYCARDIA Otherwise normal ECG Compared to ECG 08/21 13:57:55 No significant change Electronically Eli d On 11-22-2024 15:11:41 EDT by PADILLA MUKHERJEE M.D. Dictated By: PADILLA MUKHERJEE Signed By: 11/22/241510 DD/ 30 TD/TT: Hardboard Grinder: SHEILA Ruffin Reviewed date:04/28/2024 08:05:24 PM Interpretation: Performing Lab: Notes/Report: Source Facility: [place] [address] XRay Report Signed Patient: AISLINN CARNES MR#: [id number] : 1960 Acct:[id number] Age/Sex: 63 / F ADM Date: 04/25/24 Loc: ICU 274-[address]: Landon Maxwell M.D. Ordering Physician: Landon Maxwell M.D. Date of Service: 04/26/24 Procedure(s): XR abdomen 1V Accession Number(s): [id number] cc: Latosha Olmstead LUMBER INSPECTOR; Landon Maxwell M.D. [place] [address] Patient Name: AISLINN CARNES MRN: [id number] date: 1960 Sex: F Assigned Patient Location: ICU Current Patient Location: ICU Accession/Order Number: [id number] Exam Date: 04/26/2024 06:48 Report Date: 04/26/2024 07:08 At the request of: LANDON MAXWELL Procedure: XR abdomen 1V EXAMINATION: XR abdomen 1V HISTORY: Kidney Stone, Hematuria COMPARISON: CT abdomen pelvis 02/13/2023 FINDINGS: KIDNEY/URETER - RIGHT: No visible renal or ureteral calcifications. KIDNEY/URETER - LEFT: Large calcification versus oral contrast within bowel projecting over the kidney and proximal ureter. PELVIS: Stable small calcification within lower left pelvis. BOWEL: No abnormal dilation or deviation. BONES: No acute abnormality. OTHER: Negative. No abnormal gaseous collections. XR/XR abdomen 1V IMPRESSION: 1. Evaluation is limited due to oral contrast within the small bowel. There may be a large stone within the left kidney/renal pelvis or this could represent dense contrast within small bowel. Follow-up abdominal radiograph after clearing of small bowel contrast is recommended or consider CT abdomen pelvis without contrast at this time. Electronically authenticated by: ION GONZALES Date: 04/26/2024 07:08 Dictated By: Ion Gonzales M.D. Signed By: 04/26/24710 DD/ 7 TD/TT: Hardboard Grinder: [place] [address] XRay Report Signed Patient: SABRINA CARNES MR#: [id number] : 1960 Acct:[id number] Age/Sex: 63 / F ADM Date: 04/25/24 Loc: ICU 274-[address]: Mark Maxwell M.D. Ordering Physician: Landon Maxwell M.D. Date of Service: 04/26/24 Procedure(s): XR abdomen 1V Accession Number(s): [id number] cc: Latosha Olmstead LUMBER INSPECTOR ; Landon Maxwell M.D. [address] [address] Patient Name: AISLINN CARNES MRN: [id number] date: 1960 Sex: F Assigned Patient Loc ation: ICU Current Patient Loca tion: ICU Accession/Order Numb er: [id number] Exam Date: 04/26/2024 06:48 Report Date: 04/26/2024 07:08 At the request of: LANDON MAXWELL Procedure: XR abdomen 1V EXAMINATION: XR abdomen 1V HISTORY: Kidney Ston e, Hematuria COMPARISON: CT abdom en pelvis 02/13/2023 FINDINGS: KIDNEY/URETER - RIGH T: No visible renal or ureteral calcifications. KIDNEY/URETER - LEFT : Large calcification versus oral contrast within bowel projecting over the kidney and proximal ureter. PELVIS: Stable small calcification within lower left pelvis. BOWEL: No abnormal d ilation or deviation. BONES: No acute abnormality. OTHER: Negative. No abnormal gaseous collections. X R/XR abdomen 1V IMPRESSION: 1. Evaluation is ch ited due to oral contrast within the small bowel. There may be a large stone wit hin the left kidney/renal pelvis or this could represent dense contrast withi n small bowel. Follow-up abdominal radiograph after clearing of small kate wel contrast is recommended or consider CT abdomen pelvis without contrast at this time. Electronically authenticated by: ION GONZALES Date: 04/26/2024 07:08 Dictated By: Ion Gonzales M.D. Signed By: 04/26/24710 DD/ 7 TD/TT: Hardboard Grinder: PROF NIDIA Salgado ([facility] MET) Reviewed date:04/28/2024 08:05:24 PM Interpretation: Performing Lab: Notes/Report: [facility] , Sodium 138 136-145 mmol/L Potassium 5.4 3.5-5.1 mmol/L Chloride 108 98-107 mmol/L Carbon Dioxide 19.0 21.0-32.0 mmol/L Anion Gap 16.4 Glucose 205 74-106 mg/dL Blood Urea Nitrogen 40.0 7.0-18.0 mg/dL Creatinine 2.32 0.55-1.02 mg/dL Estimated GFR ( Va 26 >=60 Estimated GFR (Non- Parisa 21 >=60 BUN Creatinine Ratio 17.2 Calcium 7.9 8.5-10.1 mg/dL Performing Lab: see note ML - [facility] PROF CHEM 8 ([facility]) (Not yet reviewed by provider) Interpretation: Performing Lab: Notes/Report: [facility] , Sodium 136 136-145 mmol/L Potassium 5.9 3.5-5.1 mmol/L Chloride 104 98-107 mmol/L Carbon Dioxide 21.8 21.0-32.0 mmol/L Anion Gap 16.1 Glucose 177 74-106 mg/dL Blood Urea Nitrogen 55.0 7.0-18.0 mg/dL Creatinine 3.26 0.55-1.02 mg/dL Estimated GFR ( Va 17 >=60 mL/min/1.73m 2 Estimated GFR (Non- Parisa 14 >=60 mL/min/1.73m 2 BUN Creatinine Ratio 16.9 Calcium 8.7 8.5-10.1 mg/dL Performing Lab: see note ML - [facility] Reason For Referral No Information Medications Medication SIG (Take, Route, Frequency, Duration) Notes Start Date End Date Status Metoprolol Succinate 50 MG 1 capsule Ora lly Once a day 02/19/2025 Active Lyrica 150 MG 1 capsule orally thr ee times daily Active Iron Active Lantus SoloStar 100 u/ml 40 units subQ at HS Active metFORMIN HCl Unkno wn Cardizem Unknown [place] 325 mg-5 mg 1.5 tablet orally th ree times daily Active HumaLOG KwikPen Acti ve amLODIPine Besylate 10 MG 1 tablet Orall y Once a day 02/19/2025 Active Social History Tobacco Use: Social History [...] Problem Status W/U Status Risk Notes Problem 48615364 Type 2 diabetes mellitus with diabetic polyneuropathy (E11.42) Active confirmed Problem 02379228398544907 Type 2 diabete s mellitus with foot ulcer (E11.621) Active confirmed Problem Skin ulcer associate d with diabetes mellitus (288727580) Type 2 diabetes mellitus with other skin ulcer (E11.622) Active confirmed Problem Chronic ulcer of marilu t (876559899) Non-pressure chronic ulcer of right heel and midfoot limited to breakdown of skin (L97.411) Active confirmed Problem 34242541017633200 Non-pressure c hronic ulcer of other part of left foot limited to breakdown of skin (L97.521) Active confirmed Problem Non-pressure chr onic ulcer of other part of left lower leg with fat layer exposed (L97.822) Active confirmed Problem 074219398 Charcot's joint, left ankle and foot (M14.672) Active confirmed Problem 858730831471877 Pain in left marilu t (M79.672) Active confirmed Problem 79358699 Displaced fractu re of fifth metatarsal bone, left foot, initial encounter for closed fracture (S92.352A) Active confirmed Problem Chest pain (14297101) Chest pain (R07.9) Active confirmed Problem 358176257 Diabetic periphe ral neuropathy (E11.42) Active confirmed Problem Asthma (481429766) Asthma (J45.909) Active conf irmed Problem Anemia (398262512) Anemia (D64.9) Active confir med Problem Osteoporosis (13630198) Osteoporosis (M81.0) Active confirmed Problem Irritable bowel syndrome (90092604) Irritable bowel syndrome (K58.9) Active confirmed Problem Iron deficiency anemia (55173858) Anemia, iron deficiency (D50.9) Active confirmed Problem Liver disease (430347825) Liver disease (K76.9) Active confirmed Problem History of cancer (303492964) History of cancer (Z85.9) Active confirmed Problem Essential hypertension (96362435) BP (high blood pressure) (I10) Active confirmed Problem Hypercholesterolemia (47300403) Hypercholesterolemia (E78.00) Active confirmed Problem 96507911770300879 Non-pressure c hronic ulcer of other part of left foot with muscle involvement without evidence of necrosis (L97.525) Active confirmed Problem 36277657 History of amput ation (Z89.9) Active confirmed Problem Chronic ulcer of right heel with fat layer exposed (L97.412) Active confirmed Problem Diabetes mellitus (23001862) Diabetes mellitus (E11.9) Active confirmed Problem Chronic ulcer of left heel with fat layer exposed (L97.422) Active confirmed Problem Skin ulcer associate d with diabetes mellitus (818181195) Controlled type 2 diabetes mellitus with other skin ulcer, unspecified whether middle or 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 school principal insulin use (E11.622) Active confirmed Problem Chronic ulcer of left foot with fat layer exposed (L97.522) Active confirmed Problem 738316586 Closed fracture of neck of metatarsal bone of left foot with malunion, subsequent encounter (S92.302P) Active confirmed Vital Signs Blood pressure diastolic 86 mm Hg 02/19/2025 Height 60 in 02/19/2025 Blood pressure systolic 144 mm Hg 02/19/2025 Weight 130.2 lbs 02/19/2025 BMI 25.43 kg/m2 02/19/2025 Encounters Encounter Location Date Provider Diagnosis [facility] [address] [place] [address] 02/19/2025 Ramirez Maxwell Liver disease K76.9 ; Hypercholesterolemia E78.00 ; Diabetic peripheral neuropathy E11.42 and BP (high blood pressure) I10 [facility] [address] [place] [address] 02/13/2025 Ramirez Maxwell Assessments Encounter Date Diagnosis (ICD Code) Assessment Notes Treatment Notes Treatment Clinical Notes Section Notes 02/19/2025 Liver disease (ICD-1 0 - K76.9) 02/19/2025 Hypercholesterolemia (ICD-10 - E78.00) 02/19/2025 Diabetic peripheral neuropathy (ICD-10 - E11.42) 02/19/2025 BP (high blood press ure) (ICD-10 - I10) Plan Of Treatment Pending Test Test Name Order Date PROF CHEM 8 (BAS METB) 11/21/2024 ECG 12 lead 11/21/2024 Insurance Providers Payer Name Payer Address Payer Phone Subscriber Number Group Number Insured Name Patient Relationship to Insured Coverage Start Date Coverage End Date [employer] MED[employer] ADV PLAN [address] [address] [place] [address] [id number] Aislinn Carnes Self - patient is the insured 4 Medical (General) History Medical History History ICD Code History of gallstones History of diabetes mellitus History of arthritis History of hypertension History of coronary artery disease Asthma J45.909 Anemia D64.9 Hypercholesterolemia E78.00 History of stroke Z86.73 History of cancer Z85.9 Irritable bowel syndrome K58.9 Kidney disease N28.9 Liver disease K76.9 Osteoporosis M81.0 Surgical History Surgery Date(Month/Year) CHOLECYSTECTOMY Cataract extraction amputation mid left first metatarsal Surgical / procedural history Wrist Carp al Tunnel History of neck surgery History of musculoskeletal procedures An betty; Elbow Nerve History of hysterectomy History of cholecystectomy History of arthroscopy of the shoulder Knee arthroscopy Nephrectomy
--- OUTSIDE RECORDS SUMMARY | 2025-02-26 15:04 | XMS_ITS | Encounter Summary ---
Author Organization [facility] Address [address] [place] [address] Care Team Providers Care Prepress Specialist Name Role Phone Kofi Gotti MD Primary Care Provider [phone] Lissette Matamoros LPN Unavailable Unavailable Unallocated, Noms Provider Primary Care Provi emiliana Latosha Olmstead NP Unavailable [phone] Kofi Gotti MD Primary Care Provider [phone] Ninfa Canela MA Unavailable [phone] Unallocated, Noms Provider Primary Care Provi emiliana Encounter Details Date Type Department Care Team (Late st Contact Info) Description 01/11/2024 Orders Only [facility] [address] [place] [address] Latosha Olmstead, PANTS CUTTER [address] [place] [address] Social History Tobacco Use Types Packs/Day Years [...] How often do you attend chur or yarsanism services? Never 10/11/2023 Do you [...] Patient Health Questionnaire-2 Score 0 12/21/2023 [facility] [place] of Occupat ional Health - Occupational Stress [...] place to sleep or slept in a long-term (including now)? No 10/11/2023 Comments Unknown Sex [...] Modality Radiographic Cristiana ging us Latosha Olmstead NP IMG XR PROCEDURES Final Result * Electrocardiogram Report (01/10/2024 8:23 AM EDT) us Latosha Olmstead NP IN CLINIC/BEDSIDE ORDERABLES Fi nal Result documented in this encounter Visit Diagnoses Not on filedocumented in this encounter Additional Health Concerns Assessment Noted Time PHQ-9 Depression Total Score: 6 10/11/19 24 3:16 PM EST documented as of this encounter Care Teams Prepress Specialist Relationship Specialty Start Date End Date Kofi Gotti MD [address] [place] [address] PCP - General Family Medicine 10/09/23 06/10/24 Unallocated, Jah Mirza MD [address] [place] [address] PCP - General Family Medicine 06/11/24 06/19/24 Kofi Gotti MD [address] [place] [address] PCP - General Family Medicine 06/20/24 02/02/25 Unallocated, Jah Mirza MD [address] [place] [address] PCP - General Family Medicine 02/03/25 Lissette Matamoros LPN Licensed Practical Nurse Family Medicine 01/22/2401/24/24 Latosha Olmstead NP [address] [place] [address] Nurse Practitioner Family Medicine 06/11/24 02/02/25 Ninfa Canela MA [address] [place] [address] Family Medicine 09/13/24 01/30/25 documented as of this encounter
--- OUTSIDE RECORDS SUMMARY | 2025-02-26 15:04 | XMS_ITS | Encounter Summary ---
Author Organization [facility] Address [address] [place] [address] Care Team Providers Care Crna Name Role Phone Kofi Gotti MD Primary Care Provider [phone] Lissette Matamoros LPN Unavailable Unavailable Unallocated, Noms Provider Primary Care Provi emiliana Latosha Olmstead OLIVER FILTER OPERATOR Unavailable [phone] Kofi Gotti MD Primary Care Provider [phone] Ninfa Canela MA Unavailable [phone] Unallocated, Noms Provider Primary Care Provi emiliana Encounter Details Date Type Department Care Team (Late st Contact Info) Description 11/02/2023 Orders Only [facility] [address] [place] [address] Latosha Olmstead, OLIVER FILTER OPERATOR [address] [place] [address] Type 2 diabetes mellitus with hyperglycemia, with [...] How often do you attend chur or zoroastrian services? Never 10/11/2023 Do you belong to any clubs o r organizations such as tenriism groups, unions, fraternal or athletic groups, or [...] Recorded Patient Health Questionnaire-2 Score 2 10/11/2023 [facility] of Occupat ional Health - Occupational Stress [...] place to sleep or slept in a longterm (including now)? No 10/11/2023 Comments Unknown Sex [...] documented as of this encounter Care Teams Crna Relationship Specialty Start Date End Date Kofi Gotti MD [address] [place] [address] PCP - General Family Medicine 10/09/23 06/10/24 Unallocated, Noms Provider, MD [address] [place] [address] PCP - General Family Medicine 06/11/24 06/19/24 Kofi Gotti MD [address] [place] [address] PCP - General Family Medicine 06/20/24 02/02/25 Unallocated, Jah Mirza MD [address] [facility] [place] [address] PCP - General Family Medicine 02/03/25 Lissette Matamoros LPN Licensed Practical Nurse Family Medicine 01/22/2401/24/24 Latosha Olmstead NP [address] [place] [address] Nurse Practitioner Family Medicine 06/11/24 02/02/25 Ninfa Canela MA [address] [place] [address] Family Medicine 09/13/24 01/30/25 documented as of this encounter
--- OUTSIDE RECORDS SUMMARY | 2025-02-26 15:05 | XMS_ITS | Encounter Summary ---
Author Organization [facility] Address [address] [place] [address] Care Team Providers Care Accounts Specialist Name Role Phone Latosha Olmstead NP Unavailable [phone] Kofi Gotti MD Primary Care Provider Mel Canela MA Unavailable [phone] Unallocated, Noms Provider Primary Care Provi emiliana Reason for Visit * Reason Comments Med Refill Encounter Details Date Type Department Care Team (Late st Contact Info) Description 10/15/2024 Refill [facility] [address] [place] [address] Latosha Olmstead, WORKERS COMPENSATION CLAIMS SUPERVISOR [address] [place] [address] Type 2 diabetes mellitus with diabetic neuropathy, with long-term current use of insulin ([facility]); Type 2 diabetes mellitus with hyperglycemia, with long-term current use of insulin (HCC); carder blankets (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 ([facility]) Social History Tobacco Use Types Packs/Day Years [...] How often do you attend chur or congregation services? Never 10/11/2023 Do you belong to [...] Recorded Patient Health Questionnaire-2 Score 2 01/17/2024 [facility] of Occupat ional Health - Occupational Stress [...] with long-term current use of insulin (HCC) jail (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 (HCC) documented in this encounter Additional Health Concerns Assessment Noted Time PHQ-9 Depression Total Score: 6 10/11/19 24 3:16 PM EST documented as of this encounter Care Teams Accounts Specialist Relationship Specialty Start Date End Date Kofi Gotti MD [address] [place] [address] PCP - General Family Medicine 06/20/24 02/02/25 Unallocated, Jah Mirza MD [address] [place] [address] PCP - General Family Medicine 02/03/25 Latosha Olmstead NP [address] [place] [address] Nurse Practitioner Family Medicine 06/11/24 02/02/25 Mle Canela MA [address] [place] [address] Family Medicine 09/13/24 01/30/25 documented as of this encounter
--- OUTSIDE RECORDS SUMMARY | 2025-02-26 15:05 | XMS_ITS | Encounter Summary ---
Author Organization [facility] Address [address] [place] [address] Care Team Providers Care Gutter Mouth Cutter Name Role Phone Kofi Gotti MD Primary Care Provider Unallocated, Noms Provider Primary Care Provi emiliana Latosha Olmstead CRACKER SPRAYER Unavailable [phone] Kofi Gotti MD Primary Care Provider [phone] Ninfa Canela MA Unavailable [phone] Unallocated, Noms Provider Primary Care Provi emiliana Encounter Details Date Type Department Care Team (Late st Contact Info) Description 04/17/2024 Orders Only [facility] [address] [place] [address] Latosha Olmstead, CRACKER SPRAYER [address] [place] [address] Social History Tobacco Use Types Packs/Day Years [...] often do you attend chur ch or mandaen services? Never 10/11/2023 Do you belong to [...] Recorded Patient Health Questionnaire-2 Score 2 01/17/2024 [facility] [place] of Occupat ionnh Health - Occupational Stress Questionnaire Answer Date [...] documented as of this encounter Care Teams Gutter Mouth Cutter Relationship Specialty Start Date End Date Kofi Gotti MD [address] [place] [address] PCP - General Family Medicine 10/09/23 06/10/24 Unallocated, Jah Mirza MD [address] [place] [address] PCP - General Family Medicine 06/11/24 06/19/24 Kofi Gotti MD [address] [place] [address] PCP - General Family Medicine 06/20/24 02/02/25 Unallocated, Jah Mirza MD [address] [place] [address] PCP - General Family Medicine 02/03/25 Latosha Olmstead NP [address] [place] [address] Nurse Practitioner Family Medicine 06/11/24 02/02/25 Ninfa Canela MA [address] [place] [address] Family Medicine 09/13/24 01/30/25 documented as of this encounter
--- OUTSIDE RECORDS SUMMARY | 2025-02-26 15:05 | XMS_ITS | Encounter Summary ---
Author Organization [facility] Address [address] [place] [address] Care Team Providers Care Lpn Care Manager Name Role Phone Kofi Gotti MD Primary Care Provider Unallocated, Noms Provider Primary Care Provi emiliana Latosha Olmstead NP Unavailable [phone] Kofi Gotti MD Primary Care Provider Ninfa Canela MA Unavailable [phone] Unallocated, Noms Provider Primary Care Provi emiliana Encounter Details Date Type Department Care Team (Late st Contact Info) Description 04/18/2024 Clinisync Result Encounter [facility] External Department Unsolicited Latosha Olmstead, COMMODITY LEAD [address] [place] [address] Social History Tobacco Use Types Packs/Day Years [...] often do you attend chur ch or zoroastrianism services? Never 10/11/2023 Do you belong to any clubs o r organizations such as shinto groups, unions, fraternal or athletic groups, or [...] Patient Health Questionnaire-2 Score 2 01/17/2024 [facility] of Occupat ional Health - [...] place to sleep or slept in a detention (including now)? No 10/11/2023 Comments Unknown Sex [...] AM EDT Narrative 04/18/2024 7:08 AM EDT The [address] [address] XRay Report Signed Patient: AISLINN CARNES MR#: [id number] : 1960 Acct:[id number] Age/Sex: 63 / F ADM Date: 04/17/24 Loc: MAMMO Attending Dr: Latosha Olmstead NP Ordering Physician: Latosha Olmstead NP Date of Service: 04/17/24 Procedure(s): XR chest 2V Accession Number(s): [id number] cc: Latosha Olmstead NP The [address] [address] Patient Name: AISLINN CARNES MRN: [facility]:[id number] date: 1960 Sex: F Assigned Patient Location: MAMMO Current Patient Location: Accession/Order Number: [id number] Exam Date: 04/17/2024 10:34 Report Date: 04/18/2024 [...] Dictated By: Kit Kulkarni M.D. Signed By: 04/18/2408 DD/ 5 TD/TT: Poultryman: Procedure Note Radiology, Radiologist, MD - 04/18/2024 The [place] [id number] XRay Report Signed Patient: AISLINN CARNES MMR#: [id number] : 1960cct:[id number] Age/Sex: 63 / FADM Date: 04/17/24 Loc: MAMMO Attending Dr: Latosha Olmstead NP Ordering Physician: Latosha Olmstead NP Date of Service: 04/17/24 Procedure(s): XR chest 2V Accession Number(s): [id number] cc: Latosha Olmstead NP The [address] [id number] Patient Name: AISLINN CARNES MRN: [id number] date: 1960 Sex: F Assigned Patient Location: MAMMO Current Patient Location: Accession/Order Number: [id number] Exam Date: 04/17/2024 10:34 Report Date: 04/18/2024 [...] M.D. Signed By:04/18/24 0708 DD/ 0706 TD/TT: Poultryman: us Latosha Olmstead COMMODITY LEAD [facility] Final Result documented in this encounter Visit Diagnoses Not on filedocumented in this encounter Additional Health Concerns Assessment Noted Time PHQ-9 Depression Total Score: 6 10/11/19 24 3:16 PM EST documented as of this encounter Care Teams Lpn Care Manager Relationship Specialty Start Date End Date Kofi Gotti MD [address] [place] [address] PCP - General Family Medicine 10/09/23 06/10/24 Unallocated, Noms MD [address] [place] [address] PCP - General Family Medicine 06/11/24 06/19/24 Kofi Gotti MD [address] [place] [address] PCP - General Family Medicine 06/20/24 02/02/25 Unallocated, Noms MD Yuki [address] [place] [address] PCP - General Family Medicine 02/03/25 Latosha Olmstead NP [address] [place] [address] [place] [address] Nurse Practitioner Family Medicine 06/11/24 02/02/25 Ninfa Canela, JOHNNY [address] [place] [address] Family Medicine 09/13/24 01/30/25 documented as of this encounter
--- OUTSIDE RECORDS SUMMARY | 2025-02-26 15:05 | XMS_ITS | Encounter Summary ---
Author Organization [facility] Address [address] [place] [address] Care Team Providers Care International Accounting Manager Name Role Phone Latosha Olmstead NP Unavailable [phone] Kofi Gotti MD Primary Care Provider Ninfa Canela MA Unavailable [phone] Unallocated, Noms Provider Primary Care Provi emiliana Encounter Details Date Type Department Care Team (Late st Contact Info) Description 08/15/2024 Orders Only [facility] [address] [place] [address] Latosha Olmstead, LUIS [address] [place] [address] Social History Tobacco Use Types Packs/Day Years [...] you attend chur ch or episcopalian services? Never 10/11/2023 Do you belong to any clubs o r organizations such as synagogue groups, unions, fraternal or athletic groups, or [...] Recorded Patient Health Questionnaire-2 Score 2 01/17/2024 [facility] of Occupat ional Health - Occupational [...] as of this encounter Care Teams International Accounting Manager Relationship Specialty Start Date End Date Kofi Gtoti MD [address] [place] [address] PCP - General Family Medicine 06/20/24 02/02/25 Unallocated, Noms ProviderMD [address] [place] [address] PCP - General Family Medicine 02/03/25 Latosha Olmstead NP [address] [place] [address] Nurse Practitioner Family Medicine 06/11/24 02/02/25 Ninfa Canela, JOHNNY [address] [place] [address] Family Medicine 09/13/24 01/30/25 documented as of this encounter
--- OUTSIDE RECORDS SUMMARY | 2025-02-26 15:05 | XMS_ITS | Encounter Summary ---
Author Organization [facility] [facility] tem Address [facility][id number] [address] [place] [address] Care Team Providers Care Pen Maker Name Role Phone Kapil Marr MD Primary Care Provider [phone] Encounter Details Date Type Department Care Team (Late st Contact Info) Description 04/26/2022 Telephone [facility] Management [facility] [address] [place] [address] Yesenia Burnett RN Social History Tobacco Use [...] often do you attend chur ch or mormon services? Patient declined 08/13/2020 Do you belong to any clubs o r organizations such as sikh groups, unions, fraternal or athletic groups, or [...] Recorded Do you need help finding a [facility] center and/or a training program? No 08/13/2020 [...] AM EDT Call placed to [facility] re: prior auth request for pregabalin. Fish Cutting Machine Operator spoke with Paige andasked if script had been submitted through [facility]. Paige checks into this and verifies that script wentthrough [facility] and patient has $0 co-pay. documented in this encounter Plan of Treatment Upcoming Encounters Date Type Department Care Team (Latest Contact Info) Description 02/28/2025 8:35 AM EDT Appointment [facility] - Radiology [address] [place] [address] Joe Pedro MD [address] [place] [place] [address] 02/28/2025 3:12 PM EDT Hospital Encounter [facility] - Pain Procedures [address] [place] [address] Joe Pedro MD [address] [place], [place] [address] 02/28/2025 3:12 PM EDT - 02/28/2025 3:19 PM EDT Surgery [facility] - Pain Procedures [address] [place] [address] Joe Pedro MD [address] [place], [place] [address] INJECTION BLOCK NERVE STELLATE GANGLION NECK [58652 (CPT )] 03/12/2025 1:00 PM EDT Office Visit [facility] [address] [place] [address] Gertrude Li PA-C [address] [facility], 2nd Floor [place], [place] [address] Scheduled Procedures Name Priority Associated Diagnoses Date/Ti me INJECTION BLOCK NERVE STELLATE GANGLION NECK Reflex sympathetic dystrophy of right upper extremity 02/28/2025 3:12 PM EDT documented as of this encounter Visit Diagnoses Not on filedocumented in this encounter Care Teams Pen Maker Relationship Specialty Start Date End Date Kapil Marr MD [address] [place] [address] PCP - General Family Medicine 02/19/25 documented as of this encounter
--- OUTSIDE RECORDS SUMMARY | 2025-02-26 15:05 | XMS_ITS | Encounter Summary ---
Author Organization [facility] [facility] tem Address [id number] [address] [place] [address] Care Team Providers Care Medication Manager Name Role Phone Kapil Marr MD Primary Care Provider [phone] Reason for Visit * Reason Onset Date Comments Med Refill 06/05/2018 Encounter Details Date Type Department Care Team (Late st Contact Info) Description 06/05/2018 Refill [facility] - Pain Management Clinic [address] [place] [address] Sumi Linton RN Reflex sympathetic dystrophy of right upper [...] 3:07 PM EDT Lupe called to [facility] in [place], [place]. Radha Abrams RN 06/08/18 1344 documented in this encounter Plan of Treatment Upcoming Encounters Date Type Department Care Team (Latest Contact Info) Description 02/28/2025 8:35 AM EDT Appointment [facility] - Radiology [address] [place] [address] Joe Pedro MD [address] [place] [address] 02/28/2025 3:12 PM EDT Hospital Encounter [facility] - Pain Procedures [address] [place] [address] Joe Pedro MD [address] [place] [place] [address] 02/28/2025 3:12 PM EDT - 02/28/2025 3:19 PM EDT Surgery [facility] - Pain Procedures [address] [place] [address] Joe Pedro MD [address] [place] [address] INJECTION BLOCK NERVE STELLATE GANGLION NECK [67688 (CPT )] 03/12/2025 1:00 PM EDT Office Visit [facility] - [facility] Management Clinic [address] [place] [address] Gertrude Li PA-C [address] [place] [address] Scheduled Procedures Name Priority Associated Diagnoses Date/Ti [...] documented as of this encounter Care Teams Medication Manager Relationship Specialty Start Date End Date Kapil Marr MD [address] [place] [address] PCP - General Family Medicine 02/19/25 documented as of this encounter
--- OUTSIDE RECORDS SUMMARY | 2025-02-26 15:05 | XMS_ITS | Encounter Summary ---
Author Organization [facility] [employer] [facility] tem Address [id number] [address] [place] [address] Care Team Providers Care Director Case Management Name Role Phone Kapil Marr MD Primary Care Provider [phone] Reason for Visit * Reason Onset Date Comments Hospitalization 06/16/2022 Encounter Details Date Type Department Care Team (Late st Contact Info) Description 06/16/2022 Telephone [facility] - Pain Management Clinic [address] [place] [address] Barbara Lucero RN Hospitalization Social [...] often do you attend chur ch or worship services? Patient declined 08/13/2020 Do you belong to any clubs o r organizations such as zoroastrianism groups, unions, fraternal or athletic groups, or [...] Recorded Do you need help finding a [employer] [employer] center and/or a training program? No 08/13/2020 [...] about a week and was transferred to [facility] today where she will be for approximately [...] Info) Description 02/28/2025 8:35 AM EDT Appointment [facility] - Radiology [address] [place] [address] Joe Pedro MD [address] [facility] [address] 02/28/2025 3:12 PM EDT Hospital Encounter [facility] - Pain Procedures [address] [place] [address] Joe Pedro MD [address] [place] [address] 02/28/2025 3:12 PM EDT - 02/28/2025 3:19 PM EDT Surgery [facility] - Pain Procedures [address] [place] [address] Joe Pedro MD [address] [place] [address] INJECTION BLOCK NERVE STELLATE GANGLION NECK [19884 (CPT )] 03/12/2025 1:00 PM EDT Office Visit [facility] - Pain Management Clinic [address] [place] [address] Gertrude Li PA-C [address] 2nd [place] [address] Scheduled Procedures Name Priority Associated Diagnoses Date/Ti me INJECTION BLOCK NERVE STELLATE GANGLION NECK Reflex sympathetic dystrophy of right upper extremity 02/28/2025 3:12 PM EDT documented as of this encounter Visit Diagnoses Not on filedocumented in this encounter Care Teams Director Case Management Relationship Specialty Start Date End Date Kapil Marr MD [address] [place] [address] PCP - General Family Medicine 02/19/25 documented as of this encounter
--- OUTSIDE RECORDS SUMMARY | 2025-02-26 15:05 | XMS_ITS | Encounter Summary ---
Author Organization [facility] Address [facility] [place] [address] Care Team Providers Care Program Management Analyst Name Role Phone Lisa Porras MD Unavailable Latosha Olmstead Primary Care Provider Unavailisidra e Latosha Olmstead Unavailable Unavailable Source Comments In the event this information is protected by the Federal Confidentiality of Alcohol and Drug AbusePatient Records regulations: The Federal rules restrict any use of the information to criminally investigate or prosecute any alcohol or drug abuse patient.[facility] Encounter Details Date Type Department Care Team (Late st Contact Info) Description 07/05/2023 Patient Msg Urology [address] [place], [place] [address] Manolo Ballard MD [address] [place] [address] Pathology Social History Tobacco Use Types Packs/Day Years Used Date Smoking Tobacco: Never Smokeless Tobacco: Never Alcohol Use Standard Drinks/Week Comments Yes 0 (1 standard drink = 0.6 oz pur e alcohol) rarely--holiday or special [facility] Area Deprivation Index Answer Date Al rded National Score (1-100), lower number is lower [facility] 89 05/17/2023 State Score (1-10), lower number is lower risk 8 05/17/2023 Data from: https://www.neighborhoodatlas.[facility].edu/. Last address used for calculation [address] [...] Assessment Author No 06/23/2023 6:06 PM EDT Lila Reno RN * Because of a physical, [...] documented as of this encounter Care Teams Program Management Analyst Relationship Specialty Start Date End Date AyshaLatosha [address] [place] [address] PCP - General 05/17/23 Lisa Porras MD [address] [place] [address] Referring Urology 05/11/23 Latosha Olmstead [facility] [address] [place] [address] Referring 01/04/24 documented as of this encounter
--- OUTSIDE RECORDS SUMMARY | 2025-02-26 15:05 | XMS_ITS | Encounter Summary ---
Author Organization [facility] tem Address [id number] [address] [place] [address] Care Team Providers Care Comb Winder Name Role Phone Kapil Marr MD Primary Care Provider [phone] Reason for Visit * Reason Onset Date Comments Med Refill 04/09/2018 Encounter Details Date Type Department Care Team (Late st Contact Info) Description 04/09/2018 Refill [facility] - Pain Management Clinic [address] [place] [address] Sumi Linton RN Reflex sympathetic [...] Info) Description 02/28/2025 8:35 AM EDT Appointment [facility] - Radiology [address] [place] [address] Joe Pedro MD [address] [place] [address] 02/28/2025 3:12 PM EDT Hospital Encounter [facility] - Pain Procedures [address] [place] [address] Joe Pedro MD [address] [place] [address] 02/28/2025 3:12 PM EDT - 02/28/2025 3:19 PM EDT Surgery [facility] - Pain Procedures [address] [place] [address] Joe Pedro MD [address] [place] [address] INJECTION BLOCK NERVE STELLATE GANGLION NECK [49892 (CPT )] 03/12/2025 1:00 PM EDT Office Visit [facility] Management [facility] [address] [place] [address] Gertrude Li PA-C [address] [place] [address] Scheduled Procedures Name Priority Associated Diagnoses Date/Ti [...] documented as of this encounter Care Teams Comb Winder Relationship Specialty Start Date End Date Kapil Marr MD [address] [place] [address] PCP - General Family Medicine 02/19/25 documented as of this encounter
--- OUTSIDE RECORDS SUMMARY | 2025-02-26 15:05 | XMS_ITS | Encounter Summary ---
Author Organization [facility] Address [address] [place] [address] Care Team Providers Care Bottling Machine Operator Name Role Phone Latosha Olmstead NP Unavailable [phone] Kofi Gotti MD Primary Care Provider [phone] Ninfa Canela MA Unavailable [phone] Unallocated, Noms Provider Primary Care Provi emiliana Encounter Details Date Type Department Care Team (Late st Contact Info) Description 01/30/2025 Orders Only [facility] [address] [place] [address] Latosha Olmstead, CLINICAL ALLERGIST [address] [place] [address] Social History Tobacco Use Types Packs/Day Years [...] How often do you attend chur or oriental orthodox services? Never 10/11/2023 Do you belong to [...] Patient Health Questionnaire-2 Score 2 11/18/2024 [facility] of Occupat ional Health - Occupational Stress [...] Date/Time Associated Diagnosis Comments SCANNED LABS Routine 01/30/2025 11:47 AM EDT documented in this encounter Results * SCANNED LABS (01/30/2025 11:47 AM EDT) us Latosha Olmstead CLINICAL ALLERGIST LAB CHG PERFORMABLES Final Resu lt documented in this encounter Visit Diagnoses Not on filedocumented in this encounter Additional Health Concerns Assessment Noted Time PHQ-9 Depression Total Score: 10 025 10:35 AM EDT documented as of this encounter Care Teams Bottling Machine Operator Relationship Specialty Start Date End Date Kofi Gotti MD [address] [place] [address] PCP - General Family Medicine 06/20/24 02/02/25 Unallocated, Noms ProviderMD [address] [place] [address] PCP - General Family Medicine 02/03/25 Latosha Olmstead NP [address] [place] [address] Nurse Practitioner Family Medicine 06/11/24 02/02/25 Ninfa Canela, JOHNNY [address] [place] [address] Family Medicine 09/13/24 01/30/25 documented as of this encounter
--- OUTSIDE RECORDS SUMMARY | 2025-02-26 15:05 | XMS_ITS | Encounter Summary ---
Author Organization [facility] [employer] [facility] tem Address [id number] [address] [place] [address] Care Team Providers Care Floor Renovator Name Role Phone Kapil Marr MD Primary Care Provider [phone] Reason for Visit * Reason Onset Date Comments Med Refill 10/05/2018 Encounter Details Date Type Department Care Team (Late st Contact Info) Description 10/05/2018 Refill [facility] - Pain Management Clinic [address] [place] [address] Barbara Lucero RN Reflex sympathetic dystrophy of [...] Info) Description 02/28/2025 8:35 AM EDT Appointment [facility] - Radiology [address] [place] [address] Joe Pedro MD [address] [place], [place] [address] 02/28/2025 3:12 PM EDT Hospital Encounter [facility] - Pain Procedures [address] [place] [address] Joe Pedro MD [address] [place] [address] 02/28/2025 3:12 PM EDT - 02/28/2025 3:19 PM EDT Surgery [facility] - Pain Procedures [address] [place] [address] Joe Pedro MD [address] [place], [place] [address] INJECTION BLOCK NERVE STELLATE GANGLION NECK [17163 (CPT )] 03/12/2025 1:00 PM EDT Office Visit [facility] [address] [place] [address] Gertrude Li PA-C [address] [facility], 2nd [address] [place], [place] [address] Scheduled Procedures Name Priority Associated Diagnoses Date/Ti [...] documented as of this encounter Care Teams Floor Renovator Relationship Specialty Start Date End Date Kapil Marr MD [address] [place] [address] PCP - General Family Medicine 02/19/25 documented as of this encounter
--- OUTSIDE RECORDS SUMMARY | 2025-02-26 15:05 | XMS_ITS | Encounter Summary ---
Author Organization [facility] Address [address] [place] [address] Care Team Providers Care Assignment Editor Name Role Phone Kofi Gotti MD Primary Care Provider Unallocated, Noms Provider Primary Care Provi emiliana Latosha Olmstead NP Unavailable [phone] Kofi Gotti MD Primary Care Provider [phone] Ninfa Canela MA Unavailable [phone] Unallocated, Noms Provider Primary Care Provi emiliana Encounter Details Date Type Department Care Team (Late st Contact Info) Description 04/17/2024 Clinisync Result Encounter [facility] External Department Unsolicited Latosha Olmstead, [facility] [address] [place] [address] Social History Tobacco Use Types Packs/Day Years [...] often do you attend chur ch or latter-day services? Never 10/11/2023 Do you belong to any clubs o r organizations such as anabaptism groups, unions, fraternal or athletic groups, or [...] Recorded Patient Health Questionnaire-2 Score 2 01/17/2024 [facility] - [...] place to sleep or slept in a alf (including now)? No 10/11/2023 Comments Unknown Sex [...] EDT Narrative 04/17/2024 12:40 PM EDT The [address] [address] Mammography Report Signed Patient: AISLINN CARNES MR#: [id number] : 1960 Acct:[id number] Age/Sex: 63 / F ADM Date: 04/17/24 Loc: MAMMO Attending Dr: Latosha Olmstead NP Ordering Physician: Latosha Olmstead NP Results: Date of Service: 04/17/24 Follow Up: Procedure(s): MM tomosynthesis screening BI Accession Number(s): [id number] cc: Latosha Olmstead NP Patient Name: AISLINN CARNES MR#: [id number] : 1960 Exam Date: 04/17/2024 Ordering Doctor: [...] brain cancer at age 58. LOCATION: The [facility] BREAST COMPOSITION: The breasts are heterogeneously dense,which [...] Signed By: 04/17/24 1240 DD/ 1239 TD/TT: Business Analyst Consultant: Procedure Note Radiology, Radiologist, - 04/17/2024 [place] [address] Mammography Report Signed Patient: AISLINN CARNES MMR#: [id number] : 8Acct:[id number] Age/Sex: 63 / FADM Date: 04/17/24 Loc: MAMMO Attending Dr: Latosha Olmstead [facility] Ordering Physician: Latosha Olmstead NPResults: Date of Service: 04/17/24Follow Up: Procedure(s): MM tomosynthesis screening BI Accession Number(s): [id number] cc: Latosha Olmstead NP Patient Name: AISLINN CARNES MR#: [id number] : 1960 Exam Date: 04/17/2024 Ordering Doctor: [...] brain cancer at age 58. LOCATION: The [facility] BREAST COMPOSITION: The breasts are heterogeneously dense,which [...] MD on 04/17/2024 at 12:38 Approved by: Srawat Castle MD on 04/17/2024 at 12:39 Dictated By: Sarwat Castle M.D. Signed By:04/17/24 1240 DD/ 1239 TD/TT: Business Analyst Consultant: Latosha Olmstead NP [facility] Final Result documented in this encounter Visit Diagnoses Not on filedocumented in this encounter Additional Health Concerns Assessment Noted Time PHQ-9 Depression Total Score: 6 10/11/19 24 3:16 PM EST documented as of this encounter Care Teams Assignment Editor Relationship Specialty Start Date End Date Kofi Gotti MD [address] [place] [address] PCP - General Family Medicine 10/09/23 06/10/24 Unallocated, Jah Mirza MD [address] [place] [address] PCP - General Family Medicine 06/11/24 06/19/24 Kofi Gotti MD [address] [place] [address] PCP - General Family Medicine 06/20/24 02/02/25 Unallocated, Jah Mirza MD [address] [place] [address] PCP - General Family Medicine 02/03/25 Latosha Olmstead NP [address] [place] [address] Nurse Practitioner Family Medicine 06/11/24 02/02/25 Ninfa Canela MA [address] [place] [address] Family Medicine 09/13/24 01/30/25 documented as of this encounter
--- OUTSIDE RECORDS SUMMARY | 2025-02-26 15:05 | XMS_ITS | Encounter Summary ---
Author Organization [facility] Address [address] [place] [address] Care Team Providers Care Yard Hostler Name Role Phone Lisa Porras MD Unavailable Latosha Olmstead Primary Care Provider Latosha Chanel Unavailable Unavailable Source Comments In the event this information is protected by the Federal Confidentiality of Alcohol and Drug AbusePatient Records regulations: The Federal rules restrict any use of the information to criminally investigate or prosecute any alcohol or drug abuse patient.[facility] Encounter Details Date Type Department Care Team (Late st Contact Info) Description 04/09/2024 Patient Msg Urology [address] [place], [place] [id number] Jennifer Nolen MD [address] [place] [address] Please complete your Pre-Check IN [...] or slept in a mcc (including now)? Patient refused 08/31/2023 Housing Stability [...] is lower risk 8 05/17/2023 Data from: https://www.neighborhoodatlas.medicine.[facility].edu/. Last address used for calculation [address] [...] on filedocumented in this encounter Care Teams Yard Hostler Relationship Specialty Start Date End Date Latosha Olmstead [address] [place] [address] PCP - General 05/17/23 Lisa Porras MD [address] [place] [address] Referring Urology 05/11/23 Latosha Olmstead [address] [place] [address] Referring 01/04/24 documented as of this encounter
--- OUTSIDE RECORDS SUMMARY | 2025-02-26 15:05 | XMS_ITS | Clinical Summary ---
Author Organization [facility] Address [address] [place] [address] Care Team Providers Care Buttonhole Machine Operator Name Role Phone Unavailable Primary Care Provider [...]
--- OUTSIDE RECORDS SUMMARY | 2025-02-26 15:05 | XMS_ITS | Encounter Summary ---
Author Organization [facility] Address [address] [place] [address] Care Team Providers Care Lab Courier Name Role Phone Mariluz Mo MD Primary Care Provider [phone] Lisa Porras MD Unavailable Latosha Olmstead Primary Care Provider Unavailabl e Latosha Olmstead Unavailable Unavailable Source Comments In the event this information is protected by the Federal Confidentiality of Alcohol and Drug AbusePatient Records regulations: The Federal rules restrict any use of the information to criminally investigate or prosecute any alcohol or drug abuse patient.[facility] Encounter Details Date Type Department Care Team (Late st Contact Info) Description 2023 [place] [address] Provider, f Medicare Coverage of Physical Exams [...] N ot on file 12/26/2020 Data from: https://www.neighborhoodatlas.medicine.[facility].edu/. Last address used for calculation Not on [...] documented as of this encounter Care Teams Lab Courier Relationship Specialty Start Date End Date Mariluz Mo MD [address] [place] [address] PCP - General Family Medicine 01/29/21 05/16/[address] [place] [address] PCP - General 05/17/23 Lisa Porras MD [address] [facility] [address] [place] [address] Referring Urology 05/11/23 Latosha Olmstead [address] [facility] [address] [place] [address] Referring 01/04/24 documented as of this encounter
--- OUTSIDE RECORDS SUMMARY | 2025-02-26 15:05 | XMS_ITS | Encounter Summary ---
Author Organization [facility] tem Address [id number] [address] [place] [address] Care Team Providers Care Meat Team Member Name Role Phone PennyapurvamundoLatosha Walter SERVER ASSISTANT-FITTER/WELDER Primary Care Provider Reason for Visit * Reason Onset Date Comments Med Refill 02/11/2025 Encounter Details Date Type Department Care Team (Late st Contact Info) Description 02/11/2025 Refill [facility] [address] [place] [address] Latosha Gray CNA Reflex sympathetic dystrophy of [...] any clubs o r organizations such as amish groups, unions, fraternal or athletic groups, or [...] Recorded Do you need help finding a [facility] and/or a training program? No [...] Telephone Encounter - Latosha Gray CNA - 02/11/2025 10:56 AM EDT Last OV: 01/08/25 needs inj Next OV: 03/12/25 OARRS appropriate: yes Last UDS: 04/24/24 [facility] * Telephone Encounter - Gertrude Li PA-C - 02/11/2025 10:56 AM EDT This needs signed by Willis documented in this encounter Plan of Treatment Upcoming Encounters Date Type Department Care Team (Latest Contact Info) Description 02/28/2025 8:35 AM EDT Appointment [facility] - Radiology [address] [place] [facility] [place] [address] Joe Pedro MD [address] [place] [address] 02/28/2025 3:12 PM EDT Hospital Encounter [facility] - Pain Procedures [address] [place] [facility] [place] [address] Joe Pedro MD [address] [place] [place] [address] 02/28/2025 3:12 PM EDT - 02/28/2025 3:19 PM EDT Surgery [facility] - Pain Procedures [address] [place] [facility] [place] [address] Joe Pedro MD [address] [place] [address] INJECTION BLOCK NERVE STELLATE GANGLION NECK [06214 (CPT )] 03/12/2025 1:00 PM EDT Office Visit [facility] [address] [place] [place] [address] Gertrude Li, PAJuan JoseC [address] [facility], [address]nd [place] [address] Scheduled Procedures Name Priority Associated Diagnoses Date/Ti me INJECTION BLOCK NERVE STELLATE GANGLION NECK Reflex sympathetic dystrophy of right upper extremity 02/28/2025 3:12 PM EDT documented as of this encounter Visit Diagnoses Diagnosis Reflex sympathetic dystrophy of right upper extremity- Primary Reflex sympathetic dystrophy of right upper extremity Reflex sympathetic dystrophy of right upper extremity documented in this encounter Care Teams Meat Team Member Relationship Specialty Start Date End Date Latosha Olmstead, SERVER ASSISTANT-FITTER/WELDER PCP - General Nurse Practitioner 11/10/22 02/18/25 documented as of this encounter
--- OUTSIDE RECORDS SUMMARY | 2025-02-26 15:05 | XMS_ITS | Encounter Summary ---
Author Organization [facility] Address [address] [place] [address] Care Team Providers Care Lease Picker Name Role Phone Latosha Olmstead NP Unavailable [phone] Kofi Gotti MD Primary Care Provider Ninfa Canela MA Unavailable [phone] Unallocated, Noms Provider Primary Care Provi emiliana Encounter Details Date Type Department Care Team (Late st Contact Info) Description 10/03/2024 Orders Only [facility] [address] [place] [address] Latosha Olmstead, COMMISSIONED DEFENCE FORCE OFFICER [address] [place] [address] Social History Tobacco Use Types Packs/Day Years [...] How often do you attend chur or scientology services? Never 10/11/2023 Do you belong to any clubs o r organizations such as latter day groups, unions, fraternal or athletic groups, or [...] Recorded Patient Health Questionnaire-2 Score 2 01/17/2024 [facility] Occupat ional Health - Occupational [...] EST documented in this encounter Results * Hm Diabetes Eye Exam (10/03/2024 9:49 AM EST) Latosha Olmstead NP HEALTH MAINTENANCE Final Result documented in this encounter Visit Diagnoses Not on filedocumented in this encounter Additional Health Concerns Assessment Noted Time PHQ-9 Depression Total Score: 6 10/11/19 3:16 PM EST documented as of this encounter Care Teams Lease Picker Relationship Specialty Start Date End Date Kofi Gotti MD [address] [place] [address] PCP - General Family Medicine 06/20/24 02/02/25 Unallocated, Noms ProviderMD [address] [place] [address] PCP - General Family Medicine 02/03/25 Latosha Olmstead NP [address] [place] [address] Nurse Practitioner Family Medicine 06/11/24 02/02/25 Ninfa Canela MA [address] [place] [address] Family Medicine 09/13/24 01/30/25 documented as of this encounter
--- OUTSIDE RECORDS SUMMARY | 2025-02-26 15:05 | XMS_ITS | Encounter Summary ---
Author Organization [facility] tem Address [id number] [address] [place] [address] Care Team Providers Care Orientor Name Role Phone Kapil Marr MD Primary Care Provider [phone] Reason for Visit * Reason Onset Date Comments Med Refill 12/12/2017 Encounter Details Date Type Department Care Team (Late st Contact Info) Description 12/12/2017 Refill [facility] - [facility] Management Clinic [address] [place] [address] Barbara Lucero RN Reflex sympathetic [...] removal OARRS appropriate: Yes Last UDS: 03/23/17 [facility] patient Barbara Lucero RN 12/12/17 1448 documented in this encounter Plan of Treatment Upcoming Encounters Date Type Department Care Team (Latest Contact Info) Description 02/28/2025 8:35 AM EDT Appointment [facility] - Radiology [address] [place] [address] Joe Pedro MD [address] [place] [address] 02/28/2025 3:12 PM EDT Hospital Encounter [facility] - Pain Procedures [address] [place] [address] Joe Pedro MD [address] [place] [address] 02/28/2025 3:12 PM EDT - 02/28/2025 3:19 PM EDT Surgery [facility] - Pain Procedures [address] [place] [address] Joe Pedro MD [address] [place] [address] INJECTION BLOCK NERVE STELLATE GANGLION NECK [76048 (CPT )] 03/12/2025 1:00 PM EDT Office Visit [facility] [address] [place] [address] Gertrude Li PA-C [address] [place] [address] Scheduled Procedures Name Priority Associated Diagnoses Date/Ti [...] documented as of this encounter Care Teams Orientor Relationship Specialty Start Date End Date Kapil Marr MD [address] [place] [address] PCP - General Family Medicine 02/19/25 documented as of this encounter
--- OUTSIDE RECORDS SUMMARY | 2025-02-26 15:05 | XMS_ITS | Encounter Summary ---
Author Organization [facility] [employer] [facility] tem Address [facility] [place] [id number] [address] [place] [address] Care Team Providers Care Fisheries Management Biologist Name Role Phone Kapil Marr MD Primary Care Provider [phone] Reason for Visit * Reason Onset Date Comments Med Refill 08/09/2017 Encounter Details Date Type Department Care Team (Late st Contact Info) Description 08/09/2017 Refill [facility] [address] [place] [address] Barbara Lucero RN Reflex sympathetic [...] Info) Description 02/28/2025 8:35 AM EDT Appointment [facility] - Radiology [address] [place] [address] Joe Pedro MD [address] [place] [address] 02/28/2025 3:12 PM EDT Hospital Encounter [facility] - Pain Procedures [address] [place] [address] Joe Pedro MD [address] [place] [address] 02/28/2025 3:12 PM EDT - 02/28/2025 3:19 PM EDT Surgery [facility] - Pain Procedures [address] [place] [address] Joe Pedro MD [address] [place] [address] INJECTION BLOCK NERVE STELLATE GANGLION NECK [55004 (CPT )] 03/12/2025 1:00 PM EDT Office Visit [facility] [address] [place] [address] Gertrude Li, PROMISE [address] [facility], [address]nd [place] [address] Scheduled Procedures Name Priority Associated Diagnoses Date/Ti [...] documented as of this encounter Care Teams Fisheries Management Biologist Relationship Specialty Start Date End Date Kapil Marr MD [address] [place] [address] PCP - General Family Medicine 02/19/25 documented as of this encounter
--- OUTSIDE RECORDS SUMMARY | 2025-02-26 15:05 | XMS_ITS | Encounter Summary ---
Author Organization [facility] tem Address [id number] [address] [place] [address] Care Team Providers Care Semiconductor Wafers Etch Operator Name Role Phone Kapil Marr MD Primary Care Provider [phone] Encounter Details Date Type Department Care Team (Late st Contact Info) Description 03/09/[address] [facility] - Medical Oncology [address] [place] [address] Aj Magdaleno MD [facility] [address] [place] [address] Social History Tobacco Use Types Packs/Day Years [...] you attend chur ch or adventism services? Patient declined 08/13/2020 Do you belong [...] Recorded Do you need help finding a steward health care system [employer] center and/or a training program? No 08/13/2020 [...] Description 02/28/2025 8:35 AM EDT Appointment [facility] - Radiology [address] [place] [address] Joe Pedro MD [address] [place] [address] 02/28/2025 3:12 PM EDT Hospital Encounter [facility] - Pain Procedures [address] [place] [address] Joe Pedro MD [address] [place] [address] 02/28/2025 3:12 PM EDT - 02/28/2025 3:19 PM EDT Surgery [facility] - Pain Procedures [address] [place] [address] Joe Pedro MD [address] [place] [address] INJECTION BLOCK NERVE STELLATE GANGLION NECK [41885 (CPT )] 03/12/2025 1:00 PM EDT Office Visit [facility] Management [facility] [address] [place] [address] Gertrude Li PAJuan JoseC [address] [place], [place] [address] Scheduled Procedures Name Priority Associated Diagnoses Date/Ti me INJECTION BLOCK NERVE STELLATE GANGLION NECK Reflex sympathetic dystrophy of right upper extremity 02/28/2025 3:12 PM EDT documented as of this encounter Visit Diagnoses Not on filedocumented in this encounter Additional Health Concerns Infection Onset Date Last Indicated Resolved Time COVID-19 Positive 09/28/2021 09/28/2021 10/19/2021 11:12 PM EST documented as of this encounter Care Teams Semiconductor Wafers Etch Operator Relationship Specialty Start Date End Date Kapil Marr MD [address] [place] [address] PCP - General Family Medicine 02/19/25 documented as of this encounter
--- OUTSIDE RECORDS SUMMARY | 2025-02-26 15:05 | XMS_ITS | Clinical Summary ---
Author Organization [facility] Address [address] [place] [address] Care Team Providers Care Lap Hand Tool Name Role Phone Unavailable Primary Care Provider [...] Screening 04/28/2024 FIT 04/28/2024 04/28/2023 Influenza Vaccine (#1) 2025 6, 06/03/2016 Mammogram 04/17/2026 04/17/2024 HIB Vaccines Aged [...] complete this topic Insurance [employer] MEDICARE [employer] MEDICARE ADVANTAGE
--- OUTSIDE RECORDS SUMMARY | 2025-02-26 15:05 | XMS_ITS | Encounter Summary ---
Author Organization [facility] tem Address [id number] [address] [place] [address] Care Team Providers Care Fire Extinguisher Repairer Name Role Phone Kapil Marr MD Primary Care Provider [phone] Reason for Visit * Reason Onset Date Comments Med Refill 07/10/2020 Med Refill 07/28/2020 Encounter Details Date Type Department Care Team (Late st Contact Info) Description 07/10/2020 Refill [facility] Pain Management Clinic [address] [place] [address] iLla Che, REY Complex regional pain syndrome type 1 [...] 9:51 AM RX called [facility] in [place]. Barbara Lucero RN 07/13/20 0951 documented in this encounter Plan of Treatment Upcoming Encounters Date Type Department Care Team (Latest Contact Info) Description 02/28/2025 8:35 AM EDT Appointment [facility] - Radiology [address] [place] [address] Joe Pedro MD [address] [place] [address] 02/28/2025 3:12 PM EDT Hospital Encounter [facility] - Pain Procedures [address] [place] [address] oJe Pedro MD [address] [place] [address] 02/28/2025 3:12 PM EDT - 02/28/2025 3:19 PM EDT Surgery [facility] - Pain Procedures [address] [place] [address] Joe Pedro MD [address] [place] [address] INJECTION BLOCK NERVE STELLATE GANGLION NECK [93061 (CPT )] 03/12/2025 1:00 PM EDT Office Visit [facility] [address] [place] [address] Gertrude Li PA-C [address] [facility], 2nd [place] [address] Scheduled Procedures Name Priority Associated Diagnoses Date/Ti [...] documented as of this encounter Care Teams Fire Extinguisher Repairer Relationship Specialty Start Date End Date Kapil Marr MD [address] [place] [address] PCP - General Family Medicine 02/19/25 documented as of this encounter
--- OUTSIDE RECORDS SUMMARY | 2025-02-26 15:05 | XMS_ITS | Encounter Summary ---
Author Organization [facility] Address [address] [place] [address] Care Team Providers Care Wig Sales Consultant Name Role Phone Kofi Gotti MD Primary Care Provider Unallocated, Noms Provider Primary Care Provi emiliana Latosha Olmstead FREELANCE GRAPHIC DESIGNER Unavailable [phone] Kofi Gotti MD Primary Care Provider Ninfa Canela MA Unavailable [phone] Unallocated, Noms Provider Primary Care Provi emiliana Encounter Details Date Type Department Care Team (Late st Contact Info) Description 05/13/2024 Orders Only [facility] [address] [place] [address] Latosha Olmstead, FREELANCE GRAPHIC DESIGNER [address] [place] [address] Social History Tobacco Use Types Packs/Day Years [...] often do you attend chur ch or sabianist services? Never 10/11/2023 Do you belong to any clubs o r organizations such as evangelical groups, unions, fraternal or athletic groups, or [...] Recorded Patient Health Questionnaire-2 Score 2 01/17/2024 [facility] - Occupational Stress Questionnaire Answer Date [...] (05/13/2024 1:48 PM EDT) us Latosha Olmstead FREELANCE GRAPHIC DESIGNER LAB CHG PERFORMABLES Final Resu lt documented in this encounter Visit Diagnoses Not on filedocumented in this encounter Additional Health Concerns Assessment Noted Time PHQ-9 Depression Total Score: 6 10/11/19 3:16 PM EST documented as of this encounter Care Teams Wig Sales Consultant Relationship Specialty Start Date End Date Kofi Gotti MD [address] [place] [address] PCP - General Family Medicine 10/09/23 06/10/24 Unallocated, Jah Mirza MD [address] [place] [address] PCP - General Family Medicine 06/11/24 06/19/24 Kofi Gotti MD [address] [place] [address] PCP - General Family Medicine 06/20/24 02/02/25 Unallocated, Jah Mirza MD [address] [place] [address] PCP - General Family Medicine 02/03/25 Latosha Olmstead NP [address] [place] [address] Nurse Practitioner Family Medicine 06/11/24 02/02/25 Ninfa Canela, JOHNNY [address] [place] [address] Family Medicine 09/13/24 01/30/25 documented as of this encounter
--- OUTSIDE RECORDS SUMMARY | 2025-02-26 15:05 | XMS_ITS | Encounter Summary ---
Author Organization [employer] Address [facility] [place] [facility]-[id number] [address] [place] [address] Care Team Providers Care Meat Specialist Name Role Phone Kapil Marr MD Primary Care Provider [phone] Encounter Details Date Type Department Care Team (Late st Contact Info) Description 08/28/2024 Orders Only [facility] [address] [place] [address] External, Scanning Provider Social History Tobacco Use Types Packs/Day Years [...] any clubs o r organizations such as holiness groups, unions, fraternal or athletic groups, or [...] Recorded Do you need help finding a [facility] career center and/or a training program? No 08/13/2020 Hunger Screening Answer Date Recorded Within the past 12 months we worried whether our food would run out before we got money to buy more. Never True 07/03/2024 Within the past 12 months th e food we bought just didn't last and we didn't have money to get more. Never True 07/03/2024 Purpose - Life Answer Date Recorded Purpose [...] Info) Description 02/28/2025 8:35 AM EDT Appointment [facility] - Radiology [address] [place] [address] Joe Pedro MD [address] [facility] [place] [address] 02/28/2025 3:12 PM EDT Hospital Encounter [facility] - Pain Procedures [address] [place] [address] Joe Pedro MD [address] [facility] [place], [place] [address] 02/28/2025 3:12 PM EDT - 02/28/2025 3:19 PM EDT Surgery [facility] - Pain Procedures [address] [place] [address] Joe Pedro MD [address] [place] [address] INJECTION BLOCK NERVE STELLATE GANGLION NECK [22461 (CPT )] 03/12/2025 1:00 PM EDT Office Visit [facility] [address] [place] [phone] Gertrude Li PA-C [address] [facility], 2nd [place] [address] Scheduled Procedures Name Priority Associated Diagnoses Date/Ti me INJECTION BLOCK NERVE STELLATE GANGLION NECK Reflex sympathetic dystrophy of right upper extremity 02/28/2025 3:12 PM EDT documented as of this encounter Procedures Procedure Name Priority Date/Time Associated Diagnosis Comments ECG 12-LEAD Routine 08/10/2024 2:37 PM EST MULTIPLE LABS Routine 08/08/2024 2:40 PM EST LIPID PROFILE Routine 08/08/2024 XR CHEST 1 VW Routine 04/26/2024 2:45 PM EDT XR CHEST 2 VWS Routine 04/17/2024 2:46 PM EDT ECG 12-LEAD Routine 01/10/2024 2:38 PM EDT documented in this encounter Results * ECG 12 lead (08/10/2024 2:37 PM EST) us Scanning Provider External ECG ORDERABLES Final Result Performing Organization Address City/[facility]/ZIP Co de Phone Number MANUALLY TRANSCRIBED RESULTS * Multiple labs (08/08/2024 2:40 PM EST) us Scanning Provider External GA IMAGING Final Result Performing Organization Address City/[facility]/ZIP Co de Phone Number MANUALLY TRANSCRIBED RESULTS * Lipid profile (08/08/2024) External Cholesterol 256 MANUALLY TRANSCRIBED RESULTS External Cholesterol:Hdl 6.7 MANUALLY TRANSCRIBED RESULTS External Hdl Cholesterol 38 MANUALLY TRANSCRIBED RESULTS External Ldl (Calc) 152 MANUALLY TRANSCRIBED RESULTS External Triglycerides 333 MANUALLY TRANSCRIBED RESULTS Vldl,Cholesterol 66.6 MAN UALLY TRANSCRIBED RESULTS us Scanning Provider External LAB BLOOD ORDERABLES Edited Result - Final Performing Organization Address City/[facility] Co de Phone Number MANUALLY TRANSCRIBED RESULTS * X-ray chest 1 view (04/26/2024 2:45 PM EDT) Anatomical Region Laterality Modality Body, Chest N/A Computed Radiogr aphy us Scanning Provider External IMG DIAGNOSTIC IMAGIN G ORDERABLES Final Result * X-ray chest 2 views (04/17/2024 2:46 PM EDT) Anatomical Region Laterality Modality Body, Chest N/A Computed Radiogr aphy us Scanning Provider External IMG DIAGNOSTIC IMAGIN G ORDERABLES Final Result * ECG 12 lead (01/10/2024 2:38 PM EDT) us Scanning Provider External ECG ORDERABLES Final Result Performing Organization Address City/[facility] Co de Phone Number MANUALLY TRANSCRIBED RESULTS documented in this encounter Visit Diagnoses Not on filedocumented in this encounter Care Teams Meat Specialist Relationship Specialty Start Date End Date Kapil Marr MD [address] [place] [address] PCP - General Family Medicine 02/19/25 documented as of this encounter
--- OUTSIDE RECORDS SUMMARY | 2025-02-26 15:05 | XMS_ITS | Encounter Summary ---
Author Organization [facility] Address [address] [place] [address] Care Team Providers Care Public Housing Manager Name Role Phone Latosha Olmstead NP Unavailable [phone] Kofi Gotti MD Primary Care Provider [phone] Ninfa Canela MA Unavailable [phone] Unallocated, Noms Provider Primary Care Provi emiliana Encounter Details Date Type Department Care Team (Late st Contact Info) Description 09/04/2024 Orders Only [facility] [address] [place] [address] Suha Vanegas MD [address] [place] [address] Social History Tobacco Use Types Packs/Day Years [...] often do you attend chur ch or pentecostal services? Never 10/11/2023 Do you belong to any clubs o r organizations such as samaritan groups, unions, fraternal or athletic groups, or [...] Recorded Patient Health Questionnaire-2 Score 2 01/17/2024 [facility] Occup[facility] ional [facility] [place] - Occupational Stress Questionnaire Answer Date Recorded [...] the money to buy more. Never true 02/21/20 24 Within the past 12 months, t [...] documented as of this encounter Care Teams Public Housing Manager Relationship Specialty Start Date End Date Kofi Gotti MD [address] [place] [address] PCP - General Family Medicine 06/20/24 02/02/25 Unallocated, Noms MD Yuki [address] [place] [address] PCP - General Family Medicine 02/03/25 Latosha Olmstead NP [address] [place] [address] Nurse Practitioner Family Medicine 06/11/24 02/02/25 Ninfa Canela, JOHNNY [address] [place] [address] Family Medicine 09/13/24 01/30/25 documented as of this encounter
--- OUTSIDE RECORDS SUMMARY | 2025-02-26 15:05 | XMS_ITS | Encounter Summary ---
Author Organization [employer] Address [id number] [address] [place] [address] Care Team Providers Care Pe Teacher Name Role Phone Kapil Marr MD Primary Care Provider [phone] Encounter Details Date Type Department Care Team (Late st Contact Info) Description 01/06/2021 Telephone [facility] [address] [place] [address] [place] [address] Linda Cardenas I, PA [address] [place] [address] Social History Tobacco Use Types Packs/Day Years [...] you attend chur ch or tenriism services? Patient declined 08/13/2020 Do you belong to any clubs o r organizations such as pentecostalism groups, unions, fraternal or athletic groups, or [...] Do you need help finding a l al career center and/or a training program? No 08/13/2020 Purpose - Life Answer Date Recorded Purpose and direction in life Unknown Comments No Sex and Gender Information Value Date Recorded Sex Assigned at Not on file Legal Sex Female 11:25 AM EDT Gender Identity Not on file Sexual Orientation Not on file documented as of this encounter Miscellaneous Notes * Telephone Encounter - GIANNI Morgan - 01/06/2021 2:57 PM EDT She was [...] Info) Description 02/28/2025 8:35 AM EDT Appointment [facility] - Radiology [address] [place] [address] Joe Pedro MD [address] [place] [address] 02/28/2025 3:12 PM EDT Hospital Encounter [facility] - Pain Procedures [address] [place] [address] Joe Pedro MD [address] [place] [address] 02/28/2025 3:12 PM EDT - 02/28/2025 3:19 PM EDT Surgery [facility] - Pain Procedures [address] [place] [address] Joe Pedro MD [address] [place] [address] INJECTION BLOCK NERVE STELLATE GANGLION NECK [49299 (CPT )] 03/12/2025 1:00 PM EDT Office Visit [facility] - Pain Management Clinic [address] [place] [address] Gertrude Li, PAJuan JoseC [address] [facility], 2nd Floor [place], [place] [address] Scheduled Procedures Name Priority Associated Diagnoses Date/Ti me INJECTION BLOCK NERVE STELLATE GANGLION NECK Reflex sympathetic dystrophy of right upper extremity 02/28/2025 3:12 PM EDT documented as of this encounter Visit Diagnoses Not on filedocumented in this encounter Additional Health Concerns Infection Onset Date Last Indicated Resolved Time COVID-19 Positive 09/28/2021 09/28/2021 10/19/2021 11:12 PM EST documented as of this encounter Care Teams Pe Teacher Relationship Specialty Start Date End Date Kapil Marr MD [address] [place] [address] PCP - General Family Medicine 02/19/25 documented as of this encounter
--- OUTSIDE RECORDS SUMMARY | 2025-02-26 15:05 | XMS_ITS | Encounter Summary ---
Author Organization [facility] tem Address [facility]-[id number] [address] [place] [address] Care Team Providers Care Sql Database Programmer Name Role Phone Kapil Marr MD Primary Care Provider [phone] Reason for Visit * Reason Onset Date Comments Med Refill 03/12/2020 Encounter Details Date Type Department Care Team (Late st Contact Info) Description 03/12/2020 Refill [facility] - Pain Management Clinic [address] [place] [address] Suim Linton, REY Complex regional pain syndrome type [...] Info) Description 02/28/2025 8:35 AM EDT Appointment [facility] - Radiology [address] [place] [address] Joe Pedro MD [address] [place] [address] 02/28/2025 3:12 PM EDT Hospital Encounter [facility] - Pain Procedures [address] [place] [address] Joe Pedro MD [address] [place] [address] 02/28/2025 3:12 PM EDT - 02/28/2025 3:19 PM EDT Surgery [facility] - Pain Procedures [address] [place] [address] Joe Pedro MD [address] [place] [address] INJECTION BLOCK NERVE STELLATE GANGLION NECK [00463 (CPT )] 03/12/2025 1:00 PM EDT Office Visit [facility] - Pain Management Clinic [address] [place] [address] Gertrude Li PA-C [address] [facility], 2nd Floor [place], [place] [address] Scheduled Procedures Name Priority Associated Diagnoses Date/Ti [...] documented as of this encounter Care Teams Sql Database Programmer Relationship Specialty Start Date End Date Kapil Marr MD [address] [place] [address] PCP - General Family Medicine 02/19/25 documented as of this encounter
--- OUTSIDE RECORDS SUMMARY | 2025-02-26 15:05 | XMS_ITS | Encounter Summary ---
Author Organization [facility] Address [address] [place] [address] Care Team Providers Care Topology Professor Name Role Phone Lisa Porras MD Unavailable Latosha Olmstead Primary Care Provider Latosha Chanel Unavailable Unavailable Source Comments In the event this information is protected by the Federal Confidentiality of Alcohol and Drug AbusePatient Records regulations: The Federal rules restrict any use of the information to criminally investigate or prosecute any alcohol or drug abuse patient.[facility] Encounter Details Date Type Department Care Team (Late st Contact Info) Description 02/12/2024 Patient Msg Urology [address] [place] [address] Manolo Ballard MD [address] [place] [address] CT scan Social History Tobacco [...] slept in a nursing home (including now)? Patient refused 08/31/2023 Housing [...] is lower risk 8 05/17/2023 Data from: https://www.neighborhoodatlas.medicine.[facility].edu/. Last address used for calculation [address] [...] on filedocumented in this encounter Care Teams Topology Professor Relationship Specialty Start Date End Date Latosha Olmstead [address] [place] [address] PCP - General 05/17/23 Lisa Porras MD [address] [place] [address] Referring Urology 05/11/23 Latosha Olmstead [address] [place] [address] Referring 01/04/24 documented as of this encounter
--- OUTSIDE RECORDS SUMMARY | 2025-02-26 15:05 | XMS_ITS | Clinical Summary ---
Author Organization [facility] Address [address] [place] [address] Care Team Providers Care Shop Fitter Name Role Phone Lisa Porras MD Unavailable [...] had surgeries. Follows with pain management at [facility]-- on Lyrica and [place] Neurogenic bladder 06/06/2023 Assessment & Plan (06/06/2023 1:32 PM EDT): Assessment: Previous had to self cath Gets botox injections and no longer has to cath Follows with Dr. Porras at [facility] Stage 3a chronic kidney disease 06/06/2023 Assessment & Plan (06/15/2023 1:18 PM EDT): Assessment: follows with nephrology at [facility] Repeat labs scanned Potassium 4.9 Cr [...] Assessment: on insulin managed by endocrinology at [facility], saw KIARA 06/08 and had insulin [...] or slept in a fpc (including now)? Patient refused 08/31/2023 Housing Stability [...] is lower risk 8 05/17/2023 Data from: https://www.neighborhoodatlas.medicine.[facility].edu/. Last address used for calculation [address] [...] Hepatitis C Screening 1976 LDL Cholesterol 1976 DTaP,Tdap,Td Vaccine (1 - Tdap) 1977 [...] 04/02/2021, 03/02/2021, 12/07/2020 Advance Directive Discussion 08/21/2024 Medicare Advantage Annual We llness Visit 08/21/2024 Hemoglobin/Hematocrit 09/03/2024 09/03/2023 , 09/02/2023, 09/01/2023, Additional history exists Serum Creatinine 01/31/2025 02/01/2024, , 09/02/2023, Additional history exists Mammogram Screening 04/17/2025 04/17/2024 Influenza Vaccine (#1) 2025 06/03/2016 Cologuard (FIT-DNA) 04/28/2026 04/28/2023 Colorectal Cancer Screening [...] - 0.96 mg/dL 02/01/2024 2:49 PM EDT [facility] Estimated Glomerular Filtration Rate 31(L) >=60 mL/min/1.7 3m 02/01/2024 2:49 PM EDT [facility] Comment:Estimated Glomerular Filtration Rate (eGFR) [...] Manolo Ballard MD LABORATORY Final Resul t [facility] [address] [place] [address] * (ABNORMAL) CBC (09/03/2023 4:41 AM EST) WBC 6.44 3.70 - 11.00 k/uL 09/03/2023 5:16 AM [facility] RBC 3.70(L) 3.90 - 5.20 m/uL 09/03/2023 5:16 AM [facility] Hemoglobin 8.9(L) 11.5 - 15.5 g/dL 09/03/2023 5:16 AM [facility] Hematocrit 28.7(L) 36.0 - 46.0 % 09/03/2023 5:16 AM [facility] MCV 77.6(L) 80.0 - 100.0 fL 09/03/2023 5:16 AM [facility] MCH 24.1(L) 26.0 - 34.0 pg 09/03/2023 5:16 AM [facility] MCHC 31.0 30.5 - 36.0 g/dL 09/03/2023 5:16 AM [facility] RDW-CV 14.6 11.5 - 15.0 % 09/03/2023 5:16 AM [facility] Platelet Count 334 150 - 400 k/uL 09/03/2023 5:16 AM [facility] MPV 10.8 9.0 - 12.7 fL 09/03/2023 5:16 AM [facility] Absolute nRBC <0.01 <0.01 k/uL 09/03/2023 5:16 AM [facility] Blood BLOOD SPECIMEN / Unknown Venipuncture / Unknown 09/03/2023 4:41 AM EST 09/03/2023 5:08 AM EST us Luis Barrow MD LABORATORY Final Result [facility] [address] * (ABNORMAL) HGB A1C (06/06/2023 1:29 PM EDT) Pathologist [facility] Hemoglobin A1C 13.3(H) 4.3 - 5.6 % 06/07/2023 5:04 AM EDT [facility] Comment:[place] Diabetes As sociation guidelines indicate that patients with HgbA1c in the range 5.7-6.4% are at increased risk for development of diabetes, and intervention by lifestyle modification may be beneficial. HgbA1c greater or equal to 6.5% is considered diagnostic of diabetes. Estimated Average Glucose 335 mg/dL 06/07/2023 5:04 AM EDT [facility] Comment:eAG: (Estimated aver age glucose) is a calculated value from HgbA1c and is advertising representative of the average blood glucose level in the last 2-3 month period. Blood BLOOD SPECIMEN / Unknown Venipuncture / Unknown 06/06/2023 1:29 PM EDT 06/06/2023 1:30 PM EDT us Jenny Batres CONCAVING MACHINE OPERATOR.HOT WATER HEATER INSTALLER LABORATORY Final Res ult [facility] [address] [address], [place] from Last 3 Months or Most Recently Relevant to Health Maintenance Insurance [employer] Care Teams Shop Fitter Relationship Specialty Start Date End Date Latosha Olmstead [address] [place] [address] PCP - General 05/17/23 Lisa Porras MD [address] [place] [address] Referring Urology 05/11/23 Latosha Olmstead [address] [place] [address] Referring 01/04/24
--- OUTSIDE RECORDS SUMMARY | 2025-02-26 15:06 | XMS_ITS | Encounter Summary ---
Author Organization [facility] [employer] [facility] tem Address [id number] [address] [place] [address] Care Team Providers Care Garage Helper Name Role Phone Kapil Marr MD Primary Care Provider [phone] Encounter Details Date Type Department Care Team (Late st Contact Info) Description 10/04/2023 Telephone [facility] - Pain Management Clinic [address] [place] [address] Gina Jarvis CNA Social History Tobacco Use [...] often do you attend chur ch or taoism services? Patient declined 08/13/2020 Do you belong to any clubs o r organizations such as christianity groups, unions, fraternal or athletic groups, or [...] Recorded Do you need help finding a [facility] career center and/or a training program? No [...] Info) Description 02/28/2025 8:35 AM EDT Appointment [facility] - Radiology [address] [place] [address] Joe Pedro MD [address] [place] [address] 02/28/2025 3:12 PM EDT Hospital Encounter [facility] - Pain Procedures [address] [place] [address] Joe Pedro MD [address] [place], [place] [address] 02/28/2025 3:12 PM EDT - 02/28/2025 3:19 PM EDT Surgery [facility] - Pain Procedures [address] [place] [address] Joe Pedro MD [address] [place], [place] [address] INJECTION BLOCK NERVE STELLATE GANGLION NECK [88478 (CPT )] 03/12/2025 1:00 PM EDT Office Visit [facility] - Pain Management Clinic [address] [place] [address] Gertrude Li, PA-C [address] [facility], 2nd Floor [place], [place] [address] Scheduled Procedures Name Priority Associated Diagnoses Date/Ti me INJECTION BLOCK NERVE STELLATE GANGLION NECK Reflex sympathetic dystrophy of right upper extremity 02/28/2025 3:12 PM EDT documented as of this encounter Visit Diagnoses Not on filedocumented in this encounter Care Teams Garage Helper Relationship Specialty Start Date End Date Kapil Marr MD [address] [place] [address] PCP - General Family Medicine 02/19/25 documented as of this encounter
--- OUTSIDE RECORDS SUMMARY | 2025-02-26 15:06 | XMS_ITS | Encounter Summary ---
Author Organization [facility] Address [address] [place] [address] Care Team Providers Care Tab Card Press Operator Name Role Phone Latosha Olmstead NP Unavailable [phone] Kofi Gotti MD Primary Care Provider [phone] Ninfa Canela MA Unavailable [phone] Unallocated, Noms Provider Primary Care Provi emiliana Encounter Details Date Type Department Care Team (Late st Contact Info) Description 11/25/2024 Orders Only [facility] [address] [place] [address] [place] [address] [place] [address] Social History Tobacco Use Types Packs/Day Years [...] How often do you attend chur or roman catholic services? Never 10/11/2023 Do you belong to any clubs o r organizations such as pentecostal groups, unions, fraternal or athletic groups, or [...] Recorded Patient Health Questionnaire-2 Score 2 11/18/2024 [facility] Occupat ionor Health - Occupational Stress Questionnaire Answer Date [...] documented as of this encounter Care Teams Tab Card Press Operator Relationship Specialty Start Date End Date Kofi Gotti MD [address] [place] [address] PCP - General Family Medicine 06/20/24 02/02/25 Unallocated, Noms Yuki, [address] [place] [address] PCP - General Family Medicine 02/03/25 Latosha Olmstead NP [address] [place] [address] Nurse Practitioner Family Medicine 06/11/24 02/02/25 Ninfa Canela, JOHNNY [address] [place] [address] Family Medicine 09/13/24 01/30/25 documented as of this encounter
--- OUTSIDE RECORDS SUMMARY | 2025-02-26 15:06 | XMS_ITS | Encounter Summary ---
Author Organization [facility] Address [address] [place] [address] Care Team Providers Care Market Maker Name Role Phone Latosha Olmstead NP Unavailable [phone] Kofi Gotti MD Primary Care Provider Ninfa Canela MA Unavailable [phone] Unallocated, Noms Provider Primary Care Provi emiliana Encounter Details Date Type Department Care Team (Late st Contact Info) Description 11/24/2024 Abstract [facility] [address] [place] [address] Cory Angeles DPM [address] [address] Social History Tobacco Use Types [...] any clubs o r organizations such as mosque groups, unions, fraternal or athletic groups, or [...] No 10/11/2023 Housing Stability Vital Sign Answer Mmaadou e Recorded In the last 12 months, [...] documented as of this encounter Care Teams Market Maker Relationship Specialty Start Date End Date Kofi Gotti MD [address] [place] [address] PCP - General Family Medicine 06/20/24 02/02/25 Unallocated, Noms Provider, MD Raman LEGER [facility] [place] [address] PCP - General Family Medicine 02/03/25 Latosha Olmstead NP [address] [place] [address] Nurse Practitioner Family Medicine 06/11/24 02/02/25 Ninfa Canela, JOHNNY [address] [place] [address] Family Medicine 09/13/24 01/30/25 documented as of this encounter
--- OUTSIDE RECORDS SUMMARY | 2025-02-26 15:06 | XMS_ITS | Encounter Summary ---
Author Organization [facility] Address [address] [place] [address] Care Team Providers Care Bone Density Technician Name Role Phone Latosha Olmstead NP Unavailable [phone] Kofi Gotti MD Primary Care Provider [phone] Ninfa Canela MA Unavailable [phone] Unallocated, Noms Provider Primary Care Provi emiliana Reason for Visit * Reason Comments Med Change Request Encounter Details Date Type Department Care Team (Late st Contact Info) Description 09/11/2024 Refill [facility] [address] [place] [address] Latosha Olmstead, PRODUCTION MATERIAL COORDINATOR [address] [place] [address] Type 2 diabetes mellitus with diabetic neuropathy, [...] often do you attend chur ch or methodist services? Never 10/11/2023 Do you belong to [...] Recorded Patient Health Questionnaire-2 Score 2 01/17/2024 [facility] of Occupat ional Health - Occupational Stress [...] documented as of this encounter Care Teams Bone Density Technician Relationship Specialty Start Date End Date Kofi Gotti MD [address] [place] [address] PCP - General Family Medicine 06/20/24 02/02/25 Unallocated, Noms Provider, [address] [place] [address] PCP - General Family Medicine 02/03/25 Latosha Olmstead NP [address] [place] [address] Nurse Practitioner Family Medicine 06/11/24 02/02/25 Ninfa Canela, JOHNNY [address] [place] [address] Family Medicine 09/13/24 01/30/25 documented as of this encounter
--- OUTSIDE RECORDS SUMMARY | 2025-02-26 15:06 | XMS_ITS | Encounter Summary ---
Author Organization [facility] Address [address] [place] [address] Care Team Providers Care Capacity Management Specialist Name Role Phone Latosha Olmstead NP Unavailable [phone] Kofi Gotti MD Primary Care Provider Ninfa Canela MA Unavailable [phone] Unallocated, Noms Provider Primary Care Provi emiliana Encounter Details Date Type Department Care Team (Late st Contact Info) Description 11/07/2024 Orders Only [facility] [address] [place] [address] Latosha Olmstead, DEPARTMENT STORE GENERAL MANAGER [address] [place] [address] Social History Tobacco Use Types Packs/Day Years [...] How often do you attend chur or anabaptism services? Never 10/11/2023 Do you belong to any clubs o r organizations such as anabaptist groups, unions, fraternal or athletic groups, or [...] Recorded Patient Health Questionnaire-2 Score 0 10/24/2024 [facility] of Occupat ional Health - Occupational [...] documented as of this encounter Care Teams Capacity Management Specialist Relationship Specialty Start Date End Date Kofi Gotti MD [address] [place] [address] PCP - General Family Medicine 06/20/24 02/02/25 Unallocated, Heraclios MD Yuki [address] [facility] [place] [address] PCP - General Family Medicine 02/03/25 Latosha Olmstead NP [address] [place] [address] Nurse Practitioner Family Medicine 06/11/24 02/02/25 Ninfa Canela, JOHNNY [address] [place] [address] Family Medicine 09/13/24 01/30/25 documented as of this encounter
--- OUTSIDE RECORDS SUMMARY | 2025-02-26 15:06 | XMS_ITS | Encounter Summary ---
Author Organization [facility] Address [address] [place] [address] Care Team Providers Care Furniture Delivery Driver Name Role Phone Kofi Gotti MD Primary Care Provider [phone] Kofi Gotti MD Primary Care Provider [phone] Lissette Matamoros LPN Unavailable Unavailable Unallocated, Noms Provider Primary Care Provi emiliana Latosha Olmstead NP Unavailable [phone] Kofi Gotti MD Primary Care Provider [phone] Ninfa Canela MA Unavailable [phone] Unallocated, Noms Provider Primary Care Provi [...] AM EST Narrative 08/08/2023 10:08 [place] [address] XRay Report Signed Patient: RENATE CARNES MR#: [id number] : 1960 Acct:[id number] Age/Sex: 63 / F ADM Date: 08/07/23 Loc: Attending Dr: Cammie Segura Ordering Physician: Cammie Segura Date of Service: 08/07/23 Procedure(s): XR foot LT min 3V Accession Number(s): [id number] cc: Latosha Olmstead FRAMING SPECIALIST; Cammie Segura [address] [place] [id number] Patient Name: RENATE CARNES MRN: [id number] date: 1960 Sex: F Assigned Patient Location: Current Patient Location: Accession/Order Number: [id number] Exam Date: 08/07/2023 11:27 Report Date: 08/08/2023 [...] Signed By: 08/08/23 1008 DD/ 1005 TD/TT: Director Of Scientific Research: Procedure Note Radiology, Radiologist, MD - 08/08/[address] [address] XRay Report Signed Patient: RENATE CARNES MMR#: [id number] : 1960cct:[id number] Age/Sex: 63 / FADM Date: 08/07/23 Loc: Attending Dr: Cammie Segura Ordering Physician: Cammie Segura Date of Service: 08/07/23 Procedure(s): XR foot LT min 3V Accession Number(s): [id number] cc: Latosha Olmstead FRAMING SPECIALIST; Cammie Segura [place] [address] Patient Name: RENATE CARNES MRN: [id number] date: 1960 Sex: F Assigned Patient Location: Current Patient Location: Accession/Order Number: [id number] Exam Date: 08/07/2023 11:27 Report Date: 08/08/2023 [...] Rowley Signed By:08/08/23 1008 DD/ 1005 TD/TT: Director Of Scientific Research: us Generic External Data Provider [facility] Final Result documented in this encounter Visit Diagnoses Not on filedocumented in this encounter Care Teams Furniture Delivery Driver Relationship Specialty Start Date End Date Kofi Gotti MD PCP - General Family Medicine 02/10/23 10/08/23 Kofi Gotti MD [address] [place] [id number] PCP - General Family Medicine 10/09/23 06/10/24 Unallocated, Jah Mirza MD [address] [place] [address] PCP - General Family Medicine 06/11/24 06/19/24 Kofi Gotti MD [address] [place] [address] PCP - General Family Medicine 06/20/24 02/02/25 Unallocated, Jah Mirza MD [address] [place] [address] PCP - General Family Medicine 02/03/25 Lissette Matamoros LPN Licensed Practical Nurse Family Medicine 01/22/2401/24/24 Latosha Olmstead NP [address] [place] [address] Nurse Practitioner Family Medicine 06/11/24 02/02/25 Ninfa Canela, JOHNNY [address] [place] [address] Family Medicine 09/13/24 01/30/25 documented as of this encounter
--- OUTSIDE RECORDS SUMMARY | 2025-02-26 15:06 | XMS_ITS | Clinical Summary ---
Author Organization [facility] Healthcare Address [address] [place] [address] Care Team Providers Care Fnps Name Role Phone Unallocated, Noms Provider Primary Care Provi emiliana Allergies Active Allergy Reactions Criticality Noted Date Comments Latex Rash Low 02/04/2020 Added based on information entered during case entry, please review and add reactions, type, and severity as needed Medications HYDROcodone-acetam inophen (Wyatt) 7.5-325 MG tablet Take 1 tablet by [...] hyperglycemia, with long-term current use of insulin ([facility]) Inject 30 Units under the skin at bedtime 30 mL 1 09/11/19 25 Active insulin lispro (HumaLOG) 100 UNIT/ML injectionIndicatio ns:Type 2 diabetes mellitus with hyperglycemia, with long-term current use of insulin ([facility]) INJECT 4 units at breakfast, 6 units at lunch, and 8 units at dinner plus sliding scale coverage, max of 30 units daily 5 each 3 10/30/19 25 Active pen needle 31G x 5 mm miscIndications:Ty pe 2 diabetes mellitus with hyperglycemia, with long-term current use of insulin ([facility]) 5 injections daily. Use as instructed 300 each 6 10/30/19 25 026 Active amLODIPine (Norvasc) 10 MG tabletIndications: Essential (primary) hypertension Take 1 tablet (10 mg) by mouth Daily 90 tablet 11/19/19 25 Active atorvastatin (Lipitor) 20 MG tabletIndications: Mixed [...] days. 14 capsule 01/28/20 25 025 Active Problems Problem Noted Date Diagnosed Date [...] affiliated with activity Will refer to [facility] Right foot pain 11/11/2024 Assessment & Plan [...] Now has pt advocateReyes Assessment & Plan (11/18/2024 6:29 AM EDT): [...] follow through She is established with local Weighbridge Operator Goal: bp and DM control, although there again her compliance with blood sugar checking is difficult. She has been referred to local area Endo and Color Depositing Machine Tender, but does not go to her appts [...] follow through She is established with local Weighbridge Operator Goal: bp and DM control, although there again her compliance with blood sugar checking is difficult. She has been referred to [facility] and Color Depositing Machine Tender, but does not go to her appts as scheduled and has been discharged, and does not appear to have a strong support system Assessment & Plan (11/18/2024 6:28 AM EDT): Long standing uncontrolled HTN and DM Multiple attempts to get pt to specialists, does not follow through She is established with local Weighbridge Operator Goal: bp and DM control, although there again her compliance with blood sugar checking is difficult. She has been referred to [facility]o and Color Depositing Machine Tender, but does not go to her appts as scheduled and has been discharged, and does not appear to have a strong support system Assessment & Plan (10/24/2024 7:17 AM EST): Long standing uncontrolled HTN and DM Multiple attempts to get pt to specialists, does not follow through She is established with local Weighbridge Operator, it is of note that in the last week she was [place] [facility] [place] elevated kidney function and potassium, med adjustments as well. Urged pt to please continue to follow with Nephrology Goal: bp and DM control, although there again her compliance with blood sugar checking is difficult. She has been referred to [facility]o and Color Depositing Machine Tender, but does not go to her appts as scheduled and has been discharged, and does not appear to have a strong support system Assessment & Plan (09/11/2024 7:45 AM EST): Long standing uncontrolled HTN and DM Multiple attempts to get pt to specialists, does not follow through She is established with local Weighbridge Operator, it is of note that in the last week she was [place] [facility] [place] elevated kidney function and potassium, med adjustments as well. Urged pt to please continue to follow with Nephrology Goal: bp and DM control, although there again her compliance with blood sugar checking is difficult. She has been referred to [facility]o and Color Depositing Machine Tender, but does not go to her appts as scheduled and has been discharged, and does not appear to have a strong support system Assessment & Plan (08/27/2024 2:58 PM EST): Long standing uncontrolled HTN and DM Multiple attempts to get pt to specialists, does not follow through She is established with local Weighbridge Operator Continue to follow Goal: bp and DM control Assessment & Plan (08/27/2024 6:56 AM EST): Long standing uncontrolled HTN and DM Multiple attempts to get pt to specialists, does not follow through She is established with local Weighbridge Operator Continue to follow Goal: bp and DM control 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 08/27/2024 Assessment & Plan (08/27/2024 6:58 AM EST): 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 health conditions 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 Porras at [facility] Assessment & Plan (01/27/2025 5:33 [...] Assessment: on insulin managed by endocrinology at [facility], saw URINALYSIS TECHNICIAN 06/08 and had insulin increased. OV scanned [...] (10/11/2023): Added automatically from request for surgery [id number] Added automatically from request for surgery [id number] Renal cyst 01/10/2017 Overview (10/11/2023): Enlarging left [...] daily Will check labs History of amputation ([facility]) 06/11/2024 06/24/2024 Chronic kidney disease, stage 3b [...] & Plan: Assessment: follows with nephrology at [facility] Repeat labs scanned Potassium 4.9 Cr [...] Encounters Date Type Department Care Team Description 01/31/2025 Patient Outreach [facility] [address] [place] [address] Griselda Allen LSW 01/30/2025 Patient Outreach [facility] [address] [place] [address] Ninfa Canela MA 01/30/2025 Telephone [facility] [address] [place] [phone] Latosha Olmstead NP 01/30/2025 Telephone [facility] [address] [place] [phone] Latosha Olmstead NP 01/30/2025 Telephone [facility] [address] [place] [phone] Latosha Olmstead NP 01/30/2025 Orders Only [facility] [address] [place] [phone] Latosha Olmstead NP 01/30/2025 Clinisync Result Encounter [facility] External Department Unsolicited Latosha Olmstead NP 01/27/2025 2:40 PM EDT Office Visit [facility] [address] [place] [address] Latosha Olmstead NP Chronic kidney disease, stage 4 (severe) ([facility]) (Primary Dx); Mixed hyperlipidemia ; Essential (primary) hypertension ; Burning with urination; UTI symptoms; Urinary tract infection symptoms; Type 2 diabetes mellitus with diabetic neuropathy, with long-term current use of insulin ([facility]); History of neurogenic bladder; Neurogenic bladder; 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; Hyperparathyroidism, unspecified ([facility]); B12 deficiency; Type 2 diabetes mellitus with hyperglycemia, with long-term current use of insulin ([facility]); Vitamin D deficiency; Hypomagnesemia; Non compliance w medication regimen; Fatigue, unspecified type; Other fatigue 01/27/2025 Bamboo flowsheet [facility] [address] [place] [address] Latosha Olmstead NP 12/25/2024 Orders Only [facility] [address] [place] [address] Gina Nicholson MD 12/05/2024 1:00 PM EDT Office Visit [facility] [address] [facility] [address] [place] [address] Cory Angeles, DPM Cellulitis of right foot (Primary Dx); Laceration of right foot with foreign body, initial encounter; Diabetes mellitus due to underlying condition with diabetic polyneuropathy, with long-term current use of insulin ([facility]) 12/05/2024 Travel 12/05/2024 Patient Outreach [facility] [address] [place] [address] Ninfa Canela MA 12/04/2024 11:00 AM EDT Office Visit [facility] [address] [place] [phone] Latosha Olmstead NP Acute renal failure, unspecified acute renal failure type (Primary Dx); Chronic kidney disease, stage 4 (severe) (HCC); Essential (primary) hypertension ; Type 2 diabetes mellitus with diabetic neuropathy, with long-term current use of insulin (HCC); History of neurogenic bladder; Type 2 diabetes mellitus with hyperglycemia, with long-term current use of insulin (HCC); terminal superintendent (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 (HCC); Non compliance w medication regimen; Memory impairment 12/04/2024 Bamboo flowsheet [facility] [address] [place] [phone] Latosha Olmstead NP 11/28/2024 Patient Outreach [facility] [address] [place] [address] Ninfa Canela MA from Last 3 Months Immunizations Immunization Administration [...] any clubs o r organizations such as nondenominational groups, unions, fraternal or athletic groups, or [...] Recorded Patient Health Questionnaire-2 Score 2 11/18/2024 [facility]ational Stress Questionnaire Answer [...] 12/05/2024 1:31 PM EDT Plan of Treatment Health Maintenance Due Date Last Done Comments CT Colonography 1958 Colonoscopy 1958 FIT 1958 FOBT 1958 Sigmoidoscopy 1960 Pneumococcal Vaccine: 65+ Ye ars (1 of 2 - PCV) 1977 Diabetes: Hemoglobin A1C 02/17/2025 025, 11/18/2024, 08/08/2024, Additional history exists Mammogram 04/17/2025 04/17/2024, 03/22, 12/28/2022, Additional history exists Diabetes: Urine Protein Screening 08/28/2025 08/28/2024, 10/24/2023, 07/06/2022 Medicare Annual Wellness (AWV) 11/18/2025 0 11/18/2024, 11/18/2024, 10/24/2024, Additional history exists Diabetes: Retinopathy Screening 12/25/2025 12/25/2024, 11/07/2024, 10/02/2024 Colorectal Cancer Screening 04/28/2026 FIT-DNA 04/28/2026 04/28/2023 Influenza Vaccine Discontinued 06/03/2016 Procedures Procedure Name Priority Date/Time Associated Diagnosis Comments SCANNED LABS Routine 01/30/2025 11:47 AM EDT ALL CBC WITH AUTO DIFF Routine 9:38 AM EDT [facility] PTH, INTRAOPERATIVE Routine 01/30/2025 9:25 AM EDT TRANSFERRIN Routine 01/30/2025 9:25 AM EDT VITAMIN B12 Routine 01/30/2025 9:25 AM EDT ALL THYROID STIM HORMONE Routine 01/30/2025 9:25 AM EDT ALL MAGNESIUM Routine 01/30/2025 9:25 AM EDT ALL PHOSPHOROUS Routine 01/30/2025 9:25 AM EDT ALL BASIC METABOLIC PANEL Routine 01/30/2025 9:25 AM EDT [facility]HP LIVER PANEL Routine 01/30/2025 9:25 AM EDT METRO IRON AND TIBC Routine 01/30/2025 9 :25 AM EDT ALL THYROXINE (T4) FREE Routine 01/31/20 9:23 AM EDT ALL FOLIC ACID Routine 01/30/2025 9:23 AM EDT TBH VITAMIN D 25 [place] Routine 01/30/2025 9 :23 AM EDT [facility] FERRITIN Routine 01/30/2025 9:23 AM EDT POCT URINALYSIS DIPSTICK Routine 01/27/2025 3:57 PM EDT Burning with urination UTI symptoms URINARY TRACT INFECTION (HTRX) Routine 01/27/2025 8:41 AM EDT UTI symptoms DIABETIC RETINOPATHY SCREENING - OU - BOTH EYES Routine 12/25/2024 11:02 AM EDT POCT GLYCOSYLATED HEMOGLOBIN (HGB A1C) Routine 11/18/2024 10:56 AM EDT Type 2 diabetes mellitus with hyperglycemia, with long-term current use of insulin (HCC) MM TOMOSYNTHESIS SCREENING BI 04/17/2024 12:39 PM EDT from Last 3 Months or Most Recently Relevant to Health Maintenance Results * SCANNED LABS (01/30/2025 11:47 AM EDT) us Latosha Olmstead THERAPIST'S ASSISTANT LAB CHG PERFORMABLES Final Resu lt * (ABNORMAL) ALL CBC WITH AUTO DIFF (01/30/2025 9:38 AM EDT) TBH WBC 9.1 4.0 - 11.0 10 3/uL TBH TBH RBC 3.87(L) 4.20 - 5.40 10 6/uL TBH TBH HGB 9.8(L) 12.0 - 16.0 g/dL TBH TBH HCT 30.9(L) 36.0 - 48.0 % TBH TBH MCV 79.8(L) 81.0 - 99.0 fL TBH TBH MCH 25.3(L) 26.7 - 34.0 pg TBH TBH MCHC 31.7 29.9 - 35.2 g/dL TBH TBH RDW 13.6 11.0 - 15.0 % TBH TBH PLT 295 150 - 450 10 3/uL TBH TBH MPV 11.1 9.5 - 13.5 fL TBH NEUTROPHILS PERCENT AUTO 73.5 43.0 - 75.0 % TBH LYMPHOCYTES PERCENT AUTO 17.5(L) 20.5 - 60.0 % TBH MONOCYTES PERCENT AUTO 5.9 1.7 - 12.0 % TBH TBH EO % 0.8(L) 0.9 - 7.0 % TBH BASOPHILS PERCENT AUTO 0.6 0.2 - 2.0 % TBH IMMATURE GRANULOCYTES PCT AUTO 1.7(H) 0.0 - 0.5 % TBH NEUTROPHILS ABSOLUTE AUTO 6.7(H) 1.4 - 6.5 10 3/uL TBH LYMPHOCYTES ABSOLUTE AUTO 1.6 1.2 - 3.8 10 3/uL TBH MONOCYTES ABSOLUTE AUTO 0.5 0.3 - 0.8 10 3/uL TBH TBH EO # 0.1 0.0 - 0.7 10 3/uL TBH BASOPHILS ABSOLUTE AUTO 0.1 0.0 - 0.1 10 3/uL TBH IMMATURE GRANULOCYTES ABS AUTO 0.15(H) 0.00 - 0.03 10 3/uL TBH 01/30/2025 9:38 AM EDT 01/30/2025 9:41 AM EDT Narrative CLINISYNC - 01/30/2025 9:51 AM EDT us Latosha Olmstead NP CLINISYNC Final Result [facility] * VITAMIN B12 (01/30/2025 9:25 AM EDT) VITAMIN B12 320 232 - 1245 pg/mL TBH Comment: Performed at: - Lab[address] [id number] Sign Builder: Chris Luna PhD, Phone: [phone] 01/30/2025 9:25 AM EDT 01/30/2025 9:41 AM EDT Narrative CLINISYNC - 01/31/2025 4:07 AM EDT us Latosha Olmstead THERAPIST'S ASSISTANT LAB BLOOD ORDERABLES Final Resu lt Performing Organization Address City/[facility]/ZIP Co de Phone Number CLINISYNC TBH * (ABNORMAL) TRANSFERRIN (01/30/2025 9:25 AM EDT) TRANSFERRIN 184(A) 192 - 364 mg/dL TBH Comment: Performed at: [address] [id number] Sign Builder: Chris Luna PhD, Phone: [phone] 01/30/2025 9:25 AM EDT 01/30/2025 9:41 AM EDT Narrative CLINISYNC - 01/31/2025 5:07 AM EDT Latosha Olmstead THERAPIST'S ASSISTANT LAB BLOOD ORDERABLES Final Resu lt Performing Organization Address [facility] Co de Phone Number CLINISYNC TBH * (ABNORMAL) METRO IRON AND TIBC (01/30/2025 9:25 AM EDT) TBH IRON 35.0(L) 50.0 - 170.0 ug/dL TBH TBH TOTAL IRON BINDING CAPACITY 221.0(L) 250.0 - 450.0 ug/dL TBH TBH PERCENT IRON SATURATION 15.8 % TBH 01/30/2025 9:25 AM EDT 01/30/2025 9:41 AM EDT Narrative CLINISYNC - 01/30/2025 11:16 AM EDT Latosha Olmstead THERAPIST'S ASSISTANT CLINISYNC Final Result Performing Organization Address City/[facility] Co de Phone Number CLINISYNC TBH * (ABNORMAL) [facility] PTH, INTRAOPERATIVE (01/30/2025 9:25 AM EDT) PTH, INTACT 145(A) 15 - 65 pg/mL TBH Comment: Performed at: [facility] [address] [id number] Sign Builder: Chris Luna PhD, Phone: [phone] 01/30/2025 9:25 AM EDT 01/30/2025 9:41 AM EDT Narrative CLINISYNC - 01/31/2025 11:08 AM EDT us Latosha Aysah THERAPIST'S ASSISTANT CLINISYNC Final Result Performing Organization Address [facility]/ZIP Co de Phone Number CLINISYNC TB * (ABNORMAL) [facility] LIVER PANEL (01/30/2025 9:25 AM EDT) BILIRUBIN TOTAL 0.2 0.2 - 1.0 mg/dL TBH BILIRUBIN DIRECT 0.1 0.0 - 0.2 mg/dL TBH ASPARTATE AMINO TRANSFERASE 11(L) 15 - 37 U/L TBH ALANINE AMINOTRANSFERASE 22 14 - 59 U/L TBH ALKALINE PHOSPHATASE 149(H) 46 - 116 U/L TBH TOTAL PROTEIN 8.5(H) 6.4 - 8.2 g/dL TBH ALBUMIN LEVEL 2.3(L) 3.4 - 5.0 g/dL TBH GLOBULIN 6.2 g/dL TBH ALBUMIN GLOBULIN RATIO 0.4 TBH 01/30/2025 9:25 AM EDT 01/30/2025 9:41 AM EDT Narrative CLINISYNC - 01/30/2025 11:57 AM EDT us Latosha Olmstead NP CLINISYNC Final Result Performing Organization Address [facility] Co de Phone Number CLINISYNC TBH * ALL THYROID STIM HORMONE (01/30/2025 9:25 AM EDT) THYROID STIMULATING HORMONE 0.429 0.358 - 3.740 uIU/mL TBH 01/30/2025 9:25 AM EDT 01/30/2025 9:41 AM EDT Narrative CLINISYNC - 01/30/2025 11:57 AM EDT us Latosha Olmstead THERAPIST'S ASSISTANT CLINISYNC Final Result CLINISYNC TBH * ALL PHOSPHOROUS (01/30/2025 9:25 AM EDT) PHOSPHORUS 4.6 2.6 - 4.7 mg/dL TBH 01/30/2025 9:25 AM EDT 01/30/2025 9:41 AM EDT Narrative CLINISYNC - 01/30/2025 11:57 AM EDT Latosha Aysha THERAPIST'S ASSISTANT CLINISYNC Final Result Performing Organization Address City/[facility]/ZIP Co de Phone Number CLINISYNC TBH * (ABNORMAL) ALL MAGNESIUM (01/30/2025 9:25 AM EDT) MAGNESIUM 1.6(L) 1.8 - 2.4 mg/dL TBH 01/30/2025 9:25 AM EDT 01/30/2025 9:41 AM EDT Narrative CLINISYNC - 01/30/2025 11:57 AM EDT Latosha Olmstead THERAPIST'S ASSISTANT CLINISYNC Final Result Performing Organization Address [facility] de Phone Number CLINISYNC TB * (ABNORMAL) ALL BASIC METABOLIC PANEL (01/30/2025 9:25 AM EDT) SODIUM 131(L) 136 - 145 mmol/L TBH POTASSIUM 7.3(HH) 3.5 - 5.1 mmol/L TBH Comment:RESULTS CALLED TO PAMELA SULLIVAN MA CHLORIDE 101 98 - 107 mmol/L TBH CARBON DIOXIDE 22.5 21.0 - 32.0 mmol/L TBH ANION GAP 14.8 TBH GLUCOSE 378(H) 74 - 106 mg/dL TBH BLOOD UREA NITROGEN 59.0(H) 7.0 - 18.0 mg/dL TBH CREATININE 3.11(H) 0.55 - 1.02 mg/dL TBH TBH EGFR-AF BURUNDIAN 18(L) >=60 mL/min/1.7 3m 2 TBH TBH EGFR-NON AF BURUNDIAN 15(L) >=60 mL/min/1.7 3m 2 TBH BUN CREATININE RATIO 19.0 TBH CALCIUM 9.0 8.5 - 10.1 mg/dL TBH 01/30/2025 9:25 AM EDT 01/30/2025 9:41 AM EDT Narrative CLINISYNC - 01/30/2025 11:57 AM EDT Latosha Olmstead NP CLINISYNC Final Result Performing Organization Address City/[facility]/ZIP Co de Phone Number CLINISYNC TBH * TBH VITAMIN D 25 [place] (01/30/2025 9:23 AM EDT) VITAMIN D 10.1 ng/mL TBH Comment: <20 ng/mL Vit D deficient 20-<30 ng/mL Vit D insufficient 30-100 ng/mL Vit D sufficient >100 ng/mL Potential Toxicity 01/30/2025 9:23 AM EDT 01/30/2025 9:25 AM EDT Narrative CLINISYNC - 01/30/2025 11:50 AM EDT Latosha Olmstead NP CLINISYNC Final Result Performing Organization Address [facility] Co de Phone Number CLINISYNC TBH * (ABNORMAL) [facility] FERRITIN (01/30/2025 9:23 AM EDT) FERRITIN 878.0(H) 8.0 - 252.0 ng/mL TBH 01/30/2025 9:23 AM EDT 01/30/2025 9:25 AM EDT Narrative CLINISYNC - 01/30/2025 11:50 AM EDT Latosha Olmstead NP CLINISYNC Final Result Performing Organization Address City/[facility] Co de Phone Number CLINISYNC TBH * ALL THYROXINE (T4) FREE (01/30/2025 9:23 AM EDT) FREE T4 0.98 0.76 - 1.46 ng/dL TBH 01/30/2025 9:23 AM EDT 01/30/2025 9:25 AM EDT Narrative CLINISYNC - 01/30/2025 11:50 AM EDT Latosha Olmstead NP CLINISYNC Final Result [facility] * ALL FOLIC ACID (01/30/2025 9:23 AM EDT) Pathologist [facility] FOLATE 45.30 8.60 - 58.90 ng/mL TBH 01/30/2025 9:23 AM EDT 01/30/2025 9:25 AM EDT Narrative CLINISYAR - 01/30/2025 11:50 AM EDT Latosha Olmstead NP CLINISYNC Final Result [facility] * (ABNORMAL) POCT Urinalysis dipstick (01/27/2025 3:57 PM EDT) Pathologist [facility] Color, UA Light Yellow Clarity, UA Cloudy [...] TEST ENTER/EDIT O RDERABLES Final Result * (ABNORMAL) URINARY TRACT INFECTION (HTRX) (01/27/2025 8:41 AM EDT) Pathologist [facility] ERMB, C; MEFA 21.752(A) 23.000 - 27.611 ppm 01/29/2025 6:47 PM EDT [facility] ERMB, C; MEFA Detected(A) 23.000 - 27.611 ppm 01/29/2025 6:47 PM EDT [facility] MECA 28.298(A) 23.000 - 31.199 ppm 01/29/2025 6:46 PM EDT [facility] MECA Detected(A) 23.000 - 31.199 ppm 01/29/2025 6:46 PM EDT [facility] ACINETOBACTER BAUMANII 0.000 19.961 - 24.689 ppm 01/29/2025 6:47 PM EDT [facility] ACINETOBACTER BAUMANII Not Detected 19.961 - 24.689 ppm 01/29/2025 6:47 PM EDT [facility] CITROBACTER FREUNDII 0.000 23.000 - 31.881 ppm 01/29/2025 6:47 PM EDT [facility] CITROBACTER FREUNDII Not Detected 23.000 - 31.881 ppm 01/29/2025 6:47 PM EDT [facility] ENTEROBACTER AEROGENES, CLOACAE 0.000 23.000 - 31.535 ppm 01/29/2025 6:47 PM EDT [facility] ENTEROBACTER AEROGENES, CLOACAE Not Detected 23.000 - 31.535 ppm 01/29/2025 6:47 PM EDT [facility] ENTEROCOCCUS FAECALIS, FAECIUM 0.000 26.000 - 31.575 ppm 01/29/2025 6:47 PM EDT [facility] ENTEROCOCCUS FAECALIS, FAECIUM Not Detected 26.000 - 31.575 ppm 01/29/2025 6:47 PM EDT [facility] ESCHERICHIA COLI 0.000 23.000 - 28.500 ppm 01/29/2025 6:47 PM EDT [facility] ESCHERICHIA COLI Not Detected 23.000 - 28.500 ppm 01/29/2025 6:47 PM EDT [facility] KLEBSIELLA PNEUMONIAE, OXYTOCA 25.016(A) 23.000 - 30.500 ppm 01/29/2025 6:47 PM EDT [facility] KLEBSIELLA PNEUMONIAE, OXYTOCA Detected(A) 23.000 - 30.500 ppm 01/29/2025 6:47 PM EDT [facility] MORGANELLA MORGANII 0.000 19.961 - 24.689 ppm 01/29/2025 6:47 PM EDT [facility] MORGANELLA MORGANII Not Detected 19.961 - 24.689 ppm 01/29/2025 6:47 PM EDT [facility] PROTEUS MIRABILIS, VULGARIS 0.000 23.000 - 28.500 ppm 01/29/2025 6:46 PM EDT [facility] PROTEUS MIRABILIS, VULGARIS Not Detected 23.000 - 28.500 ppm 01/29/2025 6:46 PM EDT [facility] PSEUDOMONAS AERUGINOSA 0.000 23.000 - 28.500 ppm 01/29/2025 6:47 PM EDT [facility] PSEUDOMONAS AERUGINOSA Not Detected 23.000 - 28.500 ppm 01/29/2025 6:47 PM EDT [facility] STAPHYLOCOCCUS AUREUS 0.000 26.000 - 30.902 ppm 01/29/2025 6:47 PM EDT [facility] STAPHYLOCOCCUS AUREUS Not Detected 26.000 - 30.902 ppm 01/29/2025 6:47 PM EDT [facility] STREPTOCOCCUS AGALACTIAE (GROUP B STREP) 20.905(A) 26.000 - 32.222 ppm 01/29/2025 6:47 PM EDT [facility] STREPTOCOCCUS AGALACTIAE (GROUP B STREP) Detected(A) 26.000 - 32.222 ppm 01/29/2025 6:47 PM EDT [facility] RICKY ALBICANS, PARAPSILOSIS, TROPICALIS 0.000 19.961 - 30.770 ppm 01/29/2025 6:47 PM EDT [facility] RICKY ALBICANS, PARAPSILOSIS, TROPICALIS Not Detected 19.961 - 30.770 ppm 01/29/2025 6:47 PM EDT [facility] RICKY GLABRATA 0.000 23.000 - 32.138 ppm 01/29/2025 6:46 PM EDT [facility] RICKY GLABRATA Not Detected 23.000 - 32.138 ppm 01/29/2025 6:46 PM EDT [facility] RICKY KRUSEI 0.000 23.000 - 32.271 ppm 01/29/2025 6:46 PM EDT [facility] RICKY KRUSEI Not Detected 23.000 - 32.271 ppm 01/29/2025 6:46 PM EDT [facility] SERRATIA MARCESCENS 0.000 23.000 - 31.204 ppm 01/29/2025 6:47 PM EDT [facility] SERRATIA MARCESCENS Not Detected 23.000 - 31.204 ppm 01/29/2025 6:47 PM EDT [facility] STREPTOCOCCUS PYOGENES (GROUP A STREP) 0.000 19.961 - 24.689 ppm 01/29/2025 6:47 PM EDT [facility] STREPTOCOCCUS PYOGENES (GROUP A STREP) Not Detected 19.961 - 24.689 ppm 01/29/2025 6:47 PM EDT [facility] STAPHYLOCOCCUS EPIDERMIDIS, HAEMOLYTICUS, LUGDUNENSIS, SAPROPHYTICUS (URINA 0.000 19.961 - 24.689 ppm 01/29/2025 6:47 PM EDT [facility] STAPHYLOCOCCUS EPIDERMIDIS, HAEMOLYTICUS, LUGDUNENSIS, SAPROPHYTICUS (URINA Not Detected 19.961 - 24.689 ppm 01/29/2025 6:47 PM EDT [facility] [place] STAPHYLOCOCCUS EPIDERMIDIS, HAEMOLYTICUS, LUGDUNENSIS, SAPROPHYTICUS (URINA 30.056(A) 19.961 - 24.689 ppm 01/29/2025 6:46 PM EDT [facility] STAPHYLOCOCCUS EPIDERMIDIS, HAEMOLYTICUS, LUGDUNENSIS, SAPROPHYTICUS (URINA Detected(A) 19.961 - 24.689 ppm 01/29/2025 6:46 PM [facility] 01/27/2025 8:41 AM EDT 01/28/2025 11:00 PM EDT Latosha Olmstead NP LAB BLOOD ORDERABLES Final Resu lt [facility] [facility] [place] [address] * Diabetic Retinopathy Screening - OU - Both Eyes (12/25/2024 11:02 AM EDT) Anatomical Region Laterality Modality Head Other Gina Nicholson MD OPHTH PHOTOGRAPHY Final Resul t * (ABNORMAL) POCT glycosylated hemoglobin (Hb A1C) docked device (11/18/2024 10:56 AM EDT) Hemoglobin A1C 9.4 Blood Venous blood specimen / Unknown 11/18/2024 10:56 AM EDT Latosha Olmstead NP POINT OF CARE TEST ENTER/EDIT O RDERABLES Edited Result - Final * MM TOMOSYNTHESIS SCREENING BI (04/17/2024 12:39 PM EDT) Anatomical Region Laterality Modality Other 04/17/2024 12:3 9 PM EDT Narrative 04/17/2024 12:40 [place] [address] Mammography Report Signed Patient: AISLINN WHEELER MR#: [id number] : 1960 Acct:[id number] Age/Sex: 63 / F ADM Date: 04/17/24 Loc: MAMMO Attending Dr: Latosha Olmstead NP Ordering Physician: Latosha Olmstead NP Results: Date of Service: 04/17/24 Follow Up: Procedure(s): MM tomosynthesis screening BI Accession Number(s): [id number] cc: Latosha Olmstead THERAPIST'S ASSISTANT Patient Name: AISLINN WHEELER MR#: [id number] : 1960 Exam Date: 04/17/2024 Ordering Doctor: [...] at age 58. LOCATION: [facility] BREAST COMPOSITION: The breasts are heterogeneously dense,which [...] Signed By: 04/17/24 1240 DD/ 1239 TD/TT: Granulating Blender: Procedure Note Radiology, Radiologist, MD - 04/17/2024 [place] [address] Mammography Report Signed Patient: AISLINN WHEELER MMR#: [id number] : 8Acct:[id number] Age/Sex: 63 / FADM Date: 04/17/24 Loc: MAMMO Attending Dr: Latosha Olmstead NP Ordering Physician: Latosha Olmstead NPResults: Date of Service: 04/17/24Follow Up: Procedure(s): MM tomosynthesis screening BI Accession Number(s): [id number] cc: Latosha Olmstead NP Patient Name: AISLINN WHEELER MR#: [id number] : 1960 Exam Date: 04/17/2024 Ordering Doctor: [...] at age 58. LOCATION: [facility] BREAST COMPOSITION: The breasts are heterogeneously dense,which [...] M.D. Signed By:04/17/24 1240 DD/ 1239 TD/TT: Granulating Blender: Latosha Olmstead NP [facility] Final Result from Last 3 Months or Most Recently Relevant to Health Maintenance Insurance [facility] MEDICARE ADVANTAGE Care Teams Fnps Relationship Specialty Start Date End Date Unallocated, Noms MD Y[address] [place], [place] [id number] PCP - General Family Medicine 02/03/25
--- OUTSIDE RECORDS SUMMARY | 2025-02-26 15:06 | XMS_ITS | Encounter Summary ---
Author Organization [facility] Address [address] [place] [address] Care Team Providers Care Solar Pool Heating Installer Name Role Phone Latosha Olmstead NP Unavailable [phone] Kofi Gotti MD Primary Care Provider Ninfa Canela MA Unavailable [phone] Unallocated, Noms Provider Primary Care Provi emiliana Encounter Details Date Type Department Care Team (Late st Contact Info) Description 11/24/2024 External Result Encounter [facility] External Department Unsolicited Cory Angeles, DPM [address] [address] Social History Tobacco Use Types [...] often do you attend chur ch or orthodox services? Never 10/11/2023 Do you belong to any clubs o r organizations such as restorationism groups, unions, fraternal or athletic groups, or [...] Recorded Patient Health Questionnaire-2 Score 2 11/18/2024 [facility] Questionnaire Answer Date [...] Raf Potter M.D.11/24/2024 2:48 PM Dictation Location: [facility] Transcribed By: [facility] 11/24/24 1448 Dictated By: Raf Potter MD 11/24/24 1446 Signed By: <Electronically signed by Raf Potter MD in OV> 11/24/24 1448 Narrative 11/24/2024 2:50 PM EDT [address] [address] XRay Report Signed Patient: Renate Wheeler MR#: [id number] 01 : 1960 Acct:[id number] Age/Sex: 64 / F ADM Date: 11/23/24 Loc: Room: [address] [place] [address] Type: ADM IN Attending Dr: Diane Smith [...] Procedure Note Radiology, Radiologist, MD - 11/24/2024 [place] [id number] XRay Report Signed Patient: Renate Wheeler MMR#: [id number] 01 : 8Acct:[id number] Age/Sex: 64 / FADM Date: 11/23/24 Loc: Room: [id number]: ADM IN Attending Dr: Diane Smith MD [...] Raf Potter M.D.11/24/2024 2:48 PM Dictation Location: [place] [address] Transcribed By: [facility] 11/24/24 1448 Dictated By: Raf Potter MD 11/24/24 1446 Signed By: <Electronically signed by Raf Potter MD in OV> 11/24/24 1448 us Cory Angeles DPM IMG XR PROCEDURES Final Res ult documented in this encounter Visit Diagnoses Not on filedocumented in this encounter Additional Health Concerns Assessment Noted Time PHQ-9 Depression Total Score: 10 025 10:35 AM EDT documented as of this encounter Care Teams Solar Pool Heating Installer Relationship Specialty Start Date End Date Kofi Gotti MD [address] [place] [address] PCP - General Family Medicine 06/20/24 02/02/25 Unallocated, Noms Provider, MD Raman [facility] [address] PCP - General Family Medicine 02/03/25 Latosha Olmstead NP [address] [place] [address] Nurse Practitioner Family Medicine 06/11/24 02/02/25 Ninfa Canela MA [address] [place] [address] Family Medicine 09/13/24 01/30/25 documented as of this encounter
--- OUTSIDE RECORDS SUMMARY | 2025-02-26 15:06 | XMS_ITS | Encounter Summary ---
Author Organization [facility] [employer] [facility] tem Address [id number] [address] [place] [address] Care Team Providers Care Research Physician Name Role Phone Kapil Marr MD Primary Care Provider [phone] Encounter Details Date Type Department Care Team (Late st Contact Info) Description 09/07/2023 Telephone [facility] - Pain Management Clinic [address] [place] [address] Latosha Gray CNA Social History Tobacco Use [...] Do you need help finding a [facility] center and/or a training program? No 08/13/2020 [...] for OV. Procedure and UDS ordered, pending [facility] approval. Patient reports she was calling because she was admitted to [facility] for sepsis and was there for 3 days. Patient unsure of dates of admission. Seems somewhat confused about days. Explained today is . She thenthinks she must have been in the hospital over the weekend, but not positive. Reminded her that herfill date for her [place] would be adjusted due to hospitalization. Please check on [facility] approval Thank you documented in this encounter Plan of Treatment Upcoming Encounters Date Type Department Care Team (Latest Contact Info) Description 02/28/2025 8:35 AM EDT Appointment [facility] - Radiology [address] [place] [address] Joe Pedro MD [address] [place] [address] 02/28/2025 3:12 PM EDT Hospital Encounter [facility] - Pain Procedures [address] [place] [address] Joe Pedro MD [address] [place] [address] 02/28/2025 3:12 PM EDT - 02/28/2025 3:19 PM EDT Surgery [facility] - Pain Procedures [address] [place] [facility] [place] [address] Joe Pedro MD [address] [place] [address] INJECTION BLOCK NERVE STELLATE GANGLION NECK [15104 (CPT )] 03/12/2025 1:00 PM EDT Office Visit [facility] - Pain Management Clinic [address] [place] [address] Gertrude Li PA-C [address] [facility], [address]nd [place] [address] Scheduled Procedures Name Priority Associated Diagnoses Date/Ti me INJECTION BLOCK NERVE STELLATE GANGLION NECK Reflex sympathetic dystrophy of right upper extremity 02/28/2025 3:12 PM EDT documented as of this encounter Visit Diagnoses Not on filedocumented in this encounter Care Teams Research Physician Relationship Specialty Start Date End Date Kapil Marr MD [address] [place] [address] PCP - General Family Medicine 02/19/25 documented as of this encounter
--- OUTSIDE RECORDS SUMMARY | 2025-02-26 15:06 | XMS_ITS | Encounter Summary ---
Author Organization [facility] Address [address] [place] [address] Care Team Providers Care Vp Transportation Name Role Phone Latosha Olmstead NP Unavailable [phone] Kofi Gotti MD Primary Care Provider [phone] Ninfa Canela MA Unavailable [phone] Unallocated, Noms Provider Primary Care Provi emiliana Encounter Details Date Type Department Care Team (Late st Contact Info) Description 12/25/2024 Orders Only [facility] [address] [place] [address] [place] [address] [place] [address] Social History Tobacco Use Types [...] Recorded Patient Health Questionnaire-2 Score 2 11/18/2024 [facility] - Occupational Stress Questionnaire Answer Date [...] documented as of this encounter Care Teams Vp Transportation Relationship Specialty Start Date End Date Kofi Gotti MD [address] [place] [address] PCP - General Family Medicine 06/20/24 02/02/25 Unallocated, Jah Mirza MD [address] [place] [address] PCP - General Family Medicine 02/03/25 Latosha Olmstead NP [address] [place] [address] Nurse Practitioner Family Medicine 06/11/24 02/02/25 Ninfa Canela, JOHNNY [address] [place] [address] Family Medicine 09/13/24 01/30/25 documented as of this encounter
--- OUTSIDE RECORDS SUMMARY | 2025-02-26 15:06 | XMS_ITS | Encounter Summary ---
Author Organization [employer] tem Address [id number] [address] [place] [address] Care Team Providers Care Dynamometer Tester Name Role Phone Kapil Marr MD Primary Care Provider [phone] Encounter Details Date Type Department Care Team (Late st Contact Info) Description 01/01/2024 Orders Only [facility]necology [address] [place] [address] Ref Prov, [place] [address] Social History Tobacco Use Types Packs/Day Years [...] often do you attend chur ch or cheondoism services? Patient declined 08/13/2020 Do you belong [...] Recorded Do you need help finding a [facility] career center and/or a training program? [...] Info) Description 02/28/2025 8:35 AM EDT Appointment [facility] - Radiology [address] [place] [address] Joe Pedro MD [address] [place] [address] 02/28/2025 3:12 PM EDT Hospital Encounter [facility] - Pain Procedures [address] [place] [address] Joe Pedro MD [address] [place], [place] [address] 02/28/2025 3:12 PM EDT - 02/28/2025 3:19 PM EDT Surgery [facility] - Pain Procedures [address] [place] [address] Joe Pedro MD [address] [place], [place] [address] INJECTION BLOCK NERVE STELLATE GANGLION NECK [40769 (CPT )] 03/12/2025 1:00 PM EDT Office Visit [facility] - Pain Management Clinic [address] [place] [address] Gertrude Li PA-C [address] [facility], [address] [place] [address] Scheduled Procedures Name Priority Associated Diagnoses Date/Ti [...] on filedocumented in this encounter Care Teams Dynamometer Tester Relationship Specialty Start Date End Date Kapil Marr MD [address] [place] [address] PCP - General Family Medicine 02/19/25 documented as of this encounter
--- OUTSIDE RECORDS SUMMARY | 2025-02-26 15:06 | XMS_ITS | Encounter Summary ---
Author Organization [facility] Address [address] [place] [address] Care Team Providers Care Scallop Cutter Name Role Phone Kofi Gotti MD Primary Care Provider [phone] Kofi Gotti MD Primary Care Provider [phone] Lissette Matamoros LPN Unavailable Unavailable Unallocated, Noms Provider Primary Care Provi emiliana Latosha Olmstead TEST ENGINEER Unavailable [phone] Kofi Gotti MD Primary Care Provider [phone] Ninfa Canela MA Unavailable [phone] Unallocated, Noms Provider Primary Care Provi [...] PM EST Narrative 10/02/2023 2:37 PM EST [address] [address] XRay Report Signed Patient: RENATE CARNES MR#: [id number] : 1960 Acct:[id number] Age/Sex: 63 / F ADM Date: Loc: Attending Dr: Ramon Enrique D.P.M. Ordering Physician: Ramon Enrique D.P.M. Date of Service: 10/02/23 Procedure(s): XR foot LT min 3V Accession Number(s): [id number] cc: Latosha Olmstead TEST ENGINEER; Ramon Enrique D.P.M. [place] [address] Patient Name: RENATE CARNES MRN: [id number] date: 1960 Sex: F Assigned Patient Location: Current Patient Location: Accession/Order Number: [id number] Exam Date: 10/02/2023 02:08 Report Date: 10/02/2023 14:34 At the request of: RAMON ENRIQUE Procedure: XR foot LT min 3V STUDY: XR foot LT min 3V, [id number] HISTORY: LEFT FOOT PAIN COMPARISON: Left foot [...] 14:34 Dictated By: Kyler Burnett Signed By: 10/02/23 1437 DD/ 33 TD/TT: Metal Burrer: Procedure Note Radiology, Radiologist, - 10/25/2023 [place] [address] XRay Report Signed Patient: RENATE CARNES MMR#: [id number] : 1960cct:[id number] Age/Sex: 63 / FADM Date: Loc: Attending Dr: Ramon Enrique D.P.M. Ordering Physician: Ramon Enriuqe D.P.M. Date of Service: 10/02/23 Procedure(s): XR foot LT min 3V Accession Number(s): [id number] cc: Latosha Olmstead TEST ENGINEER; Ramon Enrique D.P.M. [place] [id number] Patient Name: RENATE CARNES MRN: [id number] date: 1960 Sex: F Assigned Patient Location: Current Patient Location: Accession/Order Number: [id number] Exam Date: 10/02/2023 02:08 Report Date: 10/02/2023 14:34 At the request of: RAMON ENRIQUE Procedure: XR foot LT min 3V STUDY: XR foot LT min 3V, [id number] HISTORY: LEFT FOOT PAIN COMPARISON: Left foot [...] By: Kyler Burnett Signed By:10/02/23 1437 DD/ 1434 TD/TT: Metal Burrer: us Generic External Data Provider [facility] Final Result documented in this encounter Visit Diagnoses Not on filedocumented in this encounter Care Teams Scallop Cutter Relationship Specialty Start Date End Date Kofi Gotti MD PCP - General Family Medicine 02/10/23 10/08/23 Kofi Gotti MD [address] [place] [address] PCP - General Family Medicine 10/09/23 06/10/24 Unallocated, Jah Mirza MD [address] [place] [address] PCP - General Family Medicine 06/11/24 06/19/24 Kofi Gotti MD [address] [place] [address] PCP - General Family Medicine 06/20/24 02/02/25 Unallocated, Jah Mirza MD [address] [facility] [place] [address] PCP - General Family Medicine 02/03/25 Lissette Matamoros LPN Licensed Practical Nurse Family Medicine 01/22/2401/24/24 Latosha Olmstead NP [address] [place] [address] Nurse Practitioner Family Medicine 06/11/24 02/02/25 Ninfa Canela MA [address] [place] [address] Family Medicine 09/13/24 01/30/25 documented as of this encounter
--- OUTSIDE RECORDS SUMMARY | 2025-02-26 15:06 | XMS_ITS | Encounter Summary ---
Author Organization [facility] Address [address] [place] [address] Care Team Providers Care Manager Installation Name Role Phone Latosha Olmstead NP Unavailable [phone] Kofi Gotti MD Primary Care Provider Ninfa Canela MA Unavailable [phone] Unallocated, Noms Provider Primary Care Provi emiliana Encounter Details Date Type Department Care Team (Late st Contact Info) Description 10/24/2024 Abstract [facility] [address] [place] [address] Latosha Olmstead, FOREIGN LANGUAGE STENOGRAPHER [address] [place] [address] Social History Tobacco Use Types Packs/Day Years [...] How often do you attend chur or yazdanism services? Never 10/11/2023 Do you belong to any clubs o r organizations such as scientologist groups, unions, fraternal or athletic groups, or [...] Recorded Patient Health Questionnaire-2 Score 0 10/24/2024 [facility] - Occupational [...] family down Several days 10/24/2024 3:28 PM EST ARMEN SULLIVAN A Trouble concentrating on things, such as [...] 8 10/24/2024 3:28 PM EST TETE SULLIVAN documented as of this encounter Plan of Treatment Not on file documented as of this encounter Visit Diagnoses Not on filedocumented in this encounter Additional Health Concerns Assessment Noted Time PHQ-9 Depression Total Score: 8 10/25/19 3:28 PM EST documented as of this encounter Care Teams Manager Installation Relationship Specialty Start Date End Date Kofi Gotti MD [address] [place] [address] PCP - General Family Medicine 06/20/24 02/02/25 Unallocated, Jah Mirza MD [address] [place] [address] PCP - General Family Medicine 02/03/25 Latosha Olmstead NP [address] [place] [address] Nurse Practitioner Family Medicine 06/11/24 02/02/25 Ninfa Canela, JOHNNY [address] [place] [address] Family Medicine 09/13/24 01/30/25 documented as of this encounter
--- OUTSIDE RECORDS SUMMARY | 2025-02-26 15:06 | XMS_ITS | Clinical Summary ---
Author Organization [employer] tem Address [id number] [address] [place] [address] Care Team Providers Care Bmet Name Role Phone Kapil Marr MD Primary Care Provider [phone] Allergies Active Allergy Reactions Criticality Noted Date [...] total) by mouth in the morning. 12/21/19 23 Active cyanocobalamin, vitamin B-12, (VITAMIN B-12) 1,000 mcg tablet extended release Take 1 tablet (1 mg total) by mouth in the morning. 06/14/20 23 Active denosumab (PROLIA) 60 mg/mL syringe injection Inject 1 mL (60 mg total) under the skin once. Active HYDROcodone-lorie taminophen (NORCO) 7.5-325 mg per tabletIndicatio ns:Reflex sympathetic dystrophy of right upper extremity Take 1 tablet by mouth 3 (three) times a day as needed for pain. 90 tablet 11/25/19 25 Active Additional Information Patient not taking.Reported on 01/15/2025 pregabalin (LYRICA) 150 mg capsuleIndicati ons:Complex regional pain syndrome type 1 of right upper extremity Take 1 capsule (150 mg total) by mouth in the morning and 1 capsule (150 mg total) at noon and 1 capsule (150 mg total) in the evening. 90 capsule 1 01/18/20 25 Active HYDROcodone-lorie taminophen (NORCO) 7.5-325 mg per tabletIndicatio ns:Reflex sympathetic dystrophy of right upper extremity Take 1 tablet by mouth 3 (three) times a day as needed for pain. 90 tablet 02/25/20 25 Active HYDROcodone-lorie taminophen (NORCO) 7.5-325 mg per tabletIndicatio ns:Reflex sympathetic dystrophy of right upper extremity Take 1 tablet by mouth 3 (three) times a day as needed for pain. 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 No evidence of enhancement. Stable on followup ultrasound Encounters Date Type Department Care Team Description 02/11/2025 Refill [facility] Pain Management Clinic [address] [place] [address] Latosha Gray CNA Reflex sympathetic dystrophy of right upper extremity 02/06/2025 Telephone [facility] Pain Management [facility] [address] [place] [address] Asia Barreto RN 01/15/2025 Refill [facility] Pain Management [facility] [address] [place] [address] Asia Barreto RN Reflex sympathetic dystrophy of right upper extremity; Complex regional pain syndrome type 1 of right upper extremity 01/08/2025 12:15 PM EDT Office Visit [facility] Pain Management [facility] [address] [place] [address] Gertrude Li PA-C Reflex sympathetic dystrophy of right upper extremity (Primary Dx) 01/08/2025 Travel 12/18/2024 Refill [facility] Pain Management [facility] [address] [place] [address] Latosha Gray CNA Reflex sympathetic dystrophy of right upper extremity from Last 3 [...] often do you attend chur ch or protestant services? Patient declined 08/13/2020 Do you belong to any clubs o r organizations such as gnosticism groups, unions, fraternal or athletic groups, or [...] Recorded Do you need help finding a [facility] and/or a training program? No [...] Info) Description 02/28/2025 8:35 AM EDT Appointment [facility] - Radiology [address] [place] [address] Joe Pedro MD [address] [place] [address] 02/28/2025 3:12 PM EDT Hospital Encounter [facility] - Pain Procedures [address] [place] [address] Joe Pedro MD [address] [place] [address] 02/28/2025 3:12 PM EDT - 02/28/2025 3:19 PM EDT Surgery [facility] - Pain Procedures [address] [place] [address] Joe Pedro MD [address] [place] [address] INJECTION BLOCK NERVE STELLATE GANGLION NECK [64737 (CPT )] 03/12/2025 1:00 PM EDT Office Visit [facility] - Pain Management Clinic [address] [place] [address] Gertrude Li, TOMMIEC [address] [address] Scheduled Procedures Name Priority Associated Diagnoses Date/Ti me INJECTION BLOCK NERVE STELLATE GANGLION NECK Reflex sympathetic dystrophy of right upper extremity 02/28/2025 3:12 PM EDT Health Maintenance Due Date Last Done Comments Depression Screening 1970 Adult BMI Follow Up Plan 1976 DTaP,Tdap and Td Vaccines (1 - Tdap) 1977 Zoster (Shingles) Vaccine (1 of 2) 2008 Fall Risk Screening 2023 COVID-19 Vaccine (4 - 2023-2 5 season) 2024 04/02/2021, 03/02/2021, 12/07/2020 Influenza Vaccine 04/21/2025 06/03/2016 Adult BMI Screening 01/08/2026 01/08/2025 Tobacco Screening 01/08/2026 01/08/2025 Medical Devices Implanted Type Area Platform Consultant Device Identifier Shelf Expiration Date Model / Serial / Lot Cervical Fusion Hardware Left Ankle Orif Explanted Type Area Platform Consultant Device Identifier Shelf Expiration Date Model / Serial / Lot Scs Insurance [employer] MEDICARE [facility] Care Teams Bmet Relationship Specialty Start Date End Date Kapil Marr MD [address] [place] [address] PCP - General Family Medicine 02/19/25
--- OUTSIDE RECORDS SUMMARY | 2025-02-26 15:06 | XMS_ITS | Encounter Summary ---
Author Organization [facility] Vizibility [facility] tem Address [id number] [address] [place] [address] Care Team Providers Care Nut Steamer Name Role Phone Kapil Marr MD Primary Care Provider [phone] Encounter Details Date Type Department Care Team (Late st Contact Info) Description 02/06/2025 Telephone [facility] [address] [place] [address] Asia Barreto, RN Social History Tobacco Use Types Packs/Day [...] often do you attend chur ch or presybeterian services? Patient declined 08/13/2020 Do you belong to any clubs o r organizations such as mandaen groups, unions, fraternal or athletic groups, or [...] Recorded Do you need help finding a [facility] career center and/or a training program? No [...] Telephone Encounter - Asia Barreto RN - 02/06/2025 1:00 PM EDT Pt calls to report she was in the ER because she advised to report there to treat high potassium of7.3 ER report in pts chart. HPI reports details: Pt states she was told to come to the ED for potassium level 7.3, has been having episodes of dizziness, falls for some time which is why she made the appointment. Hx CKD. Denies fever, chills, DAO, vision changes, CP, SOB, palpitations, N/V/D, constipation, dysuria. The patient does self-cath to help empty her bladder. Denies injury with falls. Pt did have a urinalysis completed a few days ago. Her culture report was sent by her PCP. Urinalysis was positive for 3 organisms; sensitivity showed Levaquin or bactrim will treat the three organisms. ER physician ordered admission for continued treatment, patient refused. Pt calls today states she has not had any communication with PCP since ER visit, no updated labs. Pt has been rescheduled 02/28/2025 Is there anything specific doctor arslan or the IS ARCHITECT's want prior to 02/28/2025 scheduled procedure? * Telephone Encounter - Joe Pedro MD - 02/06/2025 1:00 PM EDT PCP clearance * Telephone Encounter - Asia Barreto RN - 02/06/2025 1:00 PM EDT PCP clearance sent today via [facility] * Telephone Encounter - Asia Barreto RN - 02/06/2025 1:00 PM EDT Received clearance back with the following: Pt discharged from practice d/t non-compliance Called pt, her new PCP is Dr Marr. States her blood work from today was good . States she was just discharged today from [facility] and will have a f/u with him on 02/19/2025 New clearance letter will be sent on 02/18/2025 Will request records from [facility] from hospitalization. * Telephone Encounter - Yesenia Burnett RN - 02/06/2025 1:00 PM EDT Surgical clearance received from PCP today. Patient's procedure is scheduled for 02/28/2025. documented in this encounter Plan of Treatment Upcoming Encounters Date Type Department Care Team (Latest Contact Info) Description 02/28/2025 8:35 AM EDT Appointment [facility] - Radiology [address] [place] [address] Joe Pedro MD [address] [place] [address] 02/28/2025 3:12 PM EDT Hospital Encounter [facility] - Pain Procedures [address] [place] [address] Joe Pedro MD [address] [place] [address] 02/28/2025 3:12 PM EDT - 02/28/2025 3:19 PM EDT Surgery [facility] - Pain Procedures [address] [place] [id number] Joe Pedro MD [address] [facility] [place] [address] INJECTION BLOCK NERVE STELLATE GANGLION NECK [73965 (CPT )] 03/12/2025 1:00 PM EDT Office Visit [facility] [address] [place] [id number] Gertrude Li, PA-C [address] [place] [address] Scheduled Procedures Name Priority Associated Diagnoses Date/Ti me INJECTION BLOCK NERVE STELLATE GANGLION NECK Reflex sympathetic dystrophy of right upper extremity 02/28/2025 3:12 PM EDT documented as of this encounter Visit Diagnoses Not on filedocumented in this encounter Care Teams Nut Steamer Relationship Specialty Start Date End Date Kapil Marr MD [address] [place] [address] PCP - General Family Medicine 02/19/25 documented as of this encounter
--- OUTSIDE RECORDS SUMMARY | 2025-02-26 15:06 | XMS_ITS | Encounter Summary ---
Author Organization [facility] Address [address] [place] [address] Care Team Providers Care Contracts Manager Name Role Phone Kofi Gotti MD Primary Care Provider [phone] Lissette Matamoros LPN Unavailable Unavailable Unallocated, Noms Provider Primary Care Provi emiliana Latosha Olmstead NP Unavailable [phone] Kofi Gotti MD Primary Care Provider [phone] Ninfa Canela MA Unavailable [phone] Unallocated, Noms Provider Primary Care Provi emiliana Encounter Details Date Type Department Care Team (Late st Contact Info) Description 10/19/2023 Orders Only [facility] [address] [place] [address] Epifanio Enrique Social History Tobacco [...] you attend chur ch or restorationist services? Never 10/11/2023 Do you belong to [...] Recorded Patient Health Questionnaire-2 Score 2 10/11/2023 [facility] - [...] Extremities, Foot Left Radiogra phic Imaging Epifanio Enrique IMMartin XR PROCEDURES Final Resul t documented in this encounter Visit Diagnoses Not on filedocumented in this encounter Additional Health Concerns Assessment Noted Time PHQ-9 Depression Total Score: 6 10/11/19 3:16 PM EST documented as of this encounter Care Teams Contracts Manager Relationship Specialty Start Date End Date Kofi Gotti MD [address] [place] [address] PCP - General Family Medicine 10/09/23 06/10/24 Unallocated, Heraclios MD Yuki [address] [place] [address] PCP - General Family Medicine 06/11/24 06/19/24 Kofi Gotti MD [address] [place] [address] PCP - General Family Medicine 06/20/24 02/02/25 Unallocated, MD [address] [place] [address] PCP - General Family Medicine 02/03/25 Lissette Matamoros LPN Licensed Practical Nurse Family Medicine 01/22/2401/24/24 Latosha Olmstead NP [address] [place] [address] Nurse Practitioner Family Medicine 06/11/24 02/02/25 Nnifa Canela MA [address] [place] [address] Family Medicine 09/13/24 01/30/25 documented as of this encounter
== END 2025-02-13 10:28 | disposition home or self-care (01) ==
LOC: ER 22:09 → MS 02-13 05:29
PROVIDERS: Emergency Medicine; Registered Nurse; Student in an Organized Health Care Education/Training Program; Admitting Provider Family Medicine; Emergency Provider Emergency Medicine; Visit Provider Family Medicine
DX: N17.9 Acute kidney failure, unspecified (principal); T83.518A Infection and inflammatory reaction due to other urinary catheter, initial encounter; E87.5 Hyperkalemia; N13.6 Pyonephrosis; Z85.41 Personal history of malignant neoplasm of cervix uteri; M06.9 Rheumatoid arthritis, unspecified; I34.1 Nonrheumatic mitral (valve) prolapse; Z86.73 Personal history of transient ischemic attack (TIA), and cerebral infarction without residual deficits; E78.00 Pure hypercholesterolemia, unspecified; J30.2 Other seasonal allergic rhinitis; Z87.01 Personal history of pneumonia (recurrent); Z87.440 Personal history of urinary (tract) infections; E11.40 Type 2 diabetes mellitus with diabetic neuropathy, unspecified; Z79.4 Long term (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; Z79.899 Other long term (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; M79.7 Fibromyalgia; Z90.49 Acquired absence of other specified parts of digestive tract; Z90.710 Acquired absence of both cervix and uterus; I12.9 Hypertensive chronic kidney disease with stage 1 through stage 4 chronic kidney disease, or unspecified chronic kidney disease; D50.9 Iron deficiency anemia, unspecified; N31.9 Neuromuscular dysfunction of bladder, unspecified; R79.89 Other specified abnormal findings of blood chemistry; N18.4 Chronic kidney disease, stage 4 (severe); E11.22 Type 2 diabetes mellitus with diabetic chronic kidney disease; R33.9 Retention of urine, unspecified; R32 Unspecified urinary incontinence; B96.20 Unspecified Escherichia coli [E. coli] as the cause of diseases classified elsewhere
CPT/HCPCS: 36415; 71045; 74176; 80048; 80053; 81001; 83605; 83735; 85025; 85027; 87040; 87086; 87088; 87186; 93005; 96361; 96365; 96372; 99285; G0378; J0696; J1644; J2405; J2543

== ENCOUNTER 2025-03-25 10:41 | Outpatient (OUT) | payer MEDICARE, SELFPAY ==
--- OUTSIDE RECORDS SUMMARY | 2025-03-12 13:00 | XMS_ITS | Encounter Summary ---
Author Organization [facility] [employer] [facility] tem Address [id number] [address] [place] [address] Care Team Providers Care Fiber Technician Name Role Phone Landon Marr MD Primary Care Provider [phone] Reason for Visit * Reason Comments Arm Injury Encounter Details Date Type Department Care Team (Late st Contact Info) Description 03/12/2025 1:00 PM EDT Office Visit [facility] [address] [place] [phone] Gertrude Li, PAJuan JoseC [address] [facility], [address]nd [place] [address] Complex regional pain syndrome type 1 of right upper extremity (Primary Dx) Social [...] Recorded Do you need help finding a [employer] center and/or a training program? No 08/13/2020 Hunger Screening Answer Date Recorded Within the past 12 months we worried whether our food would run out before we got money to buy more. Never True 03/12/2025 Within the past 12 months th e food we bought just didn't last and we didn't have money to get more. Never True 03/12/2025 Purpose - Life Answer Date Recorded Purpose and direction in life Unknown Comments No Sex and Gender Information Value Date Recorded Sex Assigned at Not on file Legal Sex Female 11:25 AM EDT Gender Identity Not on file Sexual Orientation Not on file documented as of this encounter Last Filed Vital Signs Vital Sign Reading Time Taken Comments Blood Pressure 173/92 03/12/2025 1:05 PM EDT Pulse 71 03/12/2025 1:05 PM EDT Temperature - - Respiratory Rate - - Oxygen Saturation 96% 03/12/2025 1:05 PM EDT Inhaled Oxygen Concentration - - Weight 58.1 kg (128 lb) 03/12/2025 1:05 PM EDT Height 152.4 cm (5') 03/12/2025 1:05 PM EDT Body Mass Index 25 03/12/2025 1:05 PM EDT documented in this encounter Progress Notes * Gertrude Li PA-C - 03/12/2025 1:00 PM EDT [facility] [address] [place] [address] Patient: Renate Wheeler Sex: female : 1960 Age: 64 y.o. PCP: LANDON MARR MD 03/12/2025 Renate Wheeler is here for a(n) post procedure follow up 02/28/25 Rt Stellate Ganglion with 50% relief. Date of onset of pain: 2002 , pain has lasted greater than 3 months. Pain scale before treatment: 10 Percentage and duration of relief after treatment: 75% relief for 1 week, 40% relief continued Pain scale after treatment: 12/28 Chief Complaint Patient presents with Arm Injury HPI: Right Stellate Ganglion blocks offer 70% relief 10/15/21 Rt Stellate Ganglion w/80% relief. 05/06/22 Rt Stellate Ganglion w/90% relief 12/23/2022 Right Stellate ganglion block with 50% relief 10/13/2023 right stellate ganglion nerve block with 50% relief that lasted 1.5 weeks 02/28/25 Rt Stellate Ganglion w/75% relief for 1 week, 50% relief continued Arm Injury Incident onset: Many years ago. Since 2002. The incident occurred at work. 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 Pain location: RUE, LUE. The quality of the pain is described as aching and stabbing. The pain radiates to the left arm, right arm, right hand, left hand, right neck and left neck. The pain is at a severity of 6/10. The pain is moderate. The pain has been Improving since the incident. Associated symptoms include muscle weakness (BUE), numbness (tips of fingers and bilateral feet) and tingling (tips of fingers and bilateral feet). Pertinent negatives include no chest pain. The symptoms are aggravated by movement, lifting and palpation (sitt ing, lifting, lying, twisting, leaning on cart, cold/heat). Treatments tried: Tizanidine, Lyrica, Gabapentin, [place], Elevation, NSAIDs x 2 (Ibuprofen, Aleve), Flexeril, BioFreeze, Immobilization w/min relief, Celebrex & compound cream w/no relief, Rt Stellate Ganglion NB w/mod relief. The treatment provided moderate relief. The effect of pain on patient's ADLS: Moderate Impairment. Past Medical History: Diagnosis Date Arthritis RHEUMATOID Arthritis OSTEOARTHRITIS Asthma At risk for UTI related to indwelling catheter Broken toes 08/2022 [place]chitis [place] UTERINE Chronic kidney disease 2015 stage 3 per pt 04/05/23 COVID-19 virus infection 09/28/2021 Diabetes mellitus [place] Fibromyalgia GERD (gastroesophageal reflux disease) History of degenerative disc disease Hypertension Joint pain Lupus Mitral valve prolapse Osteoarthritis Pneumonia released from hospital on 11/12/21 RSD (reflex sympathetic dystrophy) Stroke [place] Past Surgical History: Procedure Laterality Date AMPUTATION OF REPLICATED TOES Left 06/2022 ANKLE SURGERY CATARACT EXTRACTION, BILATERAL Bilateral 03/22 and 04/13 CHOLECYSTECTOMY HYSTERECTOMY INJECTION BLOCK NERVE STELLATE GANGLION NECK Right 02/28/2025 Performed by Joe Pedro MD at [facility] INJECTION BLOCK NERVE STELLATE GANGLION NECK Right 03/15/2024 Performed by Joe Pedro MD at [facility] INJECTION BLOCK NERVE STELLATE GANGLION NECK Right 10/13/2023 Performed by Joe Pedro MD at [facility] INJECTION BLOCK NERVE STELLATE GANGLION NECK Right 12/23/2022 Performed by Joe Pedro MD at [facility] INJECTION BLOCK NERVE STELLATE GANGLION NECK Right 05/06/2022 Performed by Joe Pedro MD at [facility] INJECTION BLOCK NERVE STELLATE GANGLION NECK Right 10/15/2021 Performed by Joe Pedro MD at [facility] INJECTION BLOCK STELLATE GANGLION N/A 02/17/2017 Performed by Joe Pedro MD at [facility] INJECTION BLOCK STELLATE GANGLION NECK Right 06/18/2018 Performed by Joe Pedro MD at [facility] INJECTION BLOCK STELLATE GANGLION NECK N/A 05/15/2017 Performed by Joe Pedro MD at [facility] INJECTION BLOCK STELLATE GANGLION NECK Right Right 05/22/2020 Performed by Joe Pedro MD at [facility] INJECTION BLOCK STELLATE GANGLION NECK Right N/A 10/04/2019 Performed by Joe Pedro MD at [facility] INJECTION BLOCK STELLATE GANGLION NECK Right Right 05/10/2019 Performed by Joe Pedro MD at [facility] INJECTION BLOCK STELLATE GANGLION NECK Right Right 12/31/2018 Performed by Joe Pedro MD at [facility] INJECTION BLOCK STELLATE GANGLION NECK Right Right 10/09/2017 Performed by Joe Pedro MD at [facility] PAIN KNEE SURGERY REMOVAL STIMULATOR SPINAL CORD N/A 12/29/2017 Performed by Joe Pedro MD at [facility] SUR[facility]ERY SHOULDER SURGERY Allergies Allergen Reactions Latex Added [...] Resource Strain: Medium Risk (10/11/2023) Received from [facility] Overall Financial Resource Strain (CARDIA) Difficulty of Paying Living Expenses: Somewhat hard Food Insecurity: No Food Insecurity (03/12/2025) Hunger Screening Food Insecurity - Worry: Never True Food Insecurity - Inability: Never True Transportation Needs: No Transportation Needs (10/11/2023) Received from [facility] PRAPARE - Transportation Lack of Transportation (Medical): No Lack of Transportation (Non-Medical): No Physical Activity: Inactive (10/11/2023) Received from [facility] Exercise Vital Sign Days of Exercise per Week: 0 days Minutes of Exercise per Session: 0 min Stress: Stress Concern Present (10/11/2023) Received from [facility] [place] of Occupational Health - Occupational Stress Questionnaire Feeling of Stress : Very much Social Connections: Socially Isolated (10/11/2023) Received from [facility] Social Connection and Isolation Panel [NHANES] Frequency of Communication with Friends and Family: More than three times a week Frequency of Social Gatherings with Friends and Family: More than three times a week Attends Orthodox Services: Never Active Member of Clubs or Organizations: No Attends Club or Organization Meetings: Never Marital Status: Interpersonal Safety: Unknown (10/12/2023) Received from [facility] [place] Safety & Environment Fear of Current or Ex-Partner: Not on file Emotionally Abused: Not on file Physically Abused: Not on file Sexually Abused: Not on file Physically or Sexually Abused: Not on file Housing Instability: Low Risk (10/11/2023) Received from [facility] Housing Stability Vital Sign Unable to Pay for Housing in the Last Year: No Number of Places Lived in the Last Year: 1 Unstable Housing in the Last Year: No Review of Systems Constitutional: Negative for chills and fever. HENT: Negative. Eyes: Negative. Respiratory: Negative for cough and shortness of breath. Cardiovascular: Negative for chest pain. Gastrointestinal: Negative. Endocrine: Negative. Genitourinary: Positive for difficulty urinating. Self Cath x3 Daily, Dialysis soon Musculoskeletal: Arm Injury Skin: Negative. Allergic/Immunologic: Negative. Neurological: Positive for tingling (tips of fingers and bilateral feet) and numbness (tips of fingers and bilateral feet). Hematological: Negative. Psychiatric/Behavioral: Negative. Vital Signs: BP (!) 173/92 (BP Site: Left Arm) Pulse 71 Ht 152.4 cm (5') Wt 58.1 kg (128 lb) SpO2 96% BMI 25.00 kg/m?? Physical Exam: GENERAL - Healthy patient that [...] Pulses are palpable but diminished. Assessment/Treatment Plan: Renate was seen today for arm injury. Diagnoses and all orders for this visit: Complex regional pain syndrome type 1 of right upper extremity - Controlled Substance Monitoring, U - Gabapentin, Urine - Pregabalin, Urine Continue [place] 7.5/325 mg TID PRN and Lyrica 150 mg TID Urine Drug Screen - To monitor the safety of chronic medication therapy, we will order a Urine Drug Screen. This screenwill test for illegal substances as well as prescription medications that we are providing to the patient. As part of our medication policy and contract, the patient has agreed to use only the medications provided by our office in the manner recommended and any deviation of that use can result in discontinuation of the medications from our clinic. Monitor Follow up 3 months The medications I have prescribed have been reviewed for medication interactions/contraindications and/or for upcoming procedures: continue current medication regimen without any changes. It is felt that the patient???s current pain is related to the described [...] medication that requires intensive monitoring for toxicity [place] and Lyrica. OARRS and most recent UDS were reviewed, discussed and appropriate for medications prescribed. [place] pill count completed at today's office visit. Dose: 7.5-325 x3 Daily Quantity Dispensed: 90 Quantity Remainin Fill date on prescription bottle: 02/24/25 appropriate Patient educated to bring medication to every office visit. It does appear that the patient benefited from the previous injection and the benefit has continuedthrough this visit. At this time, we will monitor the patient???s symptoms from an interventional standpoint and consider another injection in the future if the patient???s symptoms return or intensify severely. The patient was made aware that they should call if symptoms worsen or if their pain begins to have a negative impact on their quality of life and activities of daily living again. The spine model was demonstrated and CT was reviewed and used to explain the condition. Chronic conditions not treated during this visit that affected my overall medical decision making: Diabetes and CKD OARRS: Reviewed. Scribe Statement: I, Latosha Gray CNA, scribed for and in the presence of GERTRUDE LI PA-C who performed the above service. Latosha Gray CNA 03/12/25 1332 Latosha Gray CNA 03/12/25 1343 Gertrude Li PA-C 03/12/25 1345 documented in this encounter Miscellaneous Notes * Addendum Note - Tami Gonzalez CPT - 03/12/2025 1:00 PM EDTAddended by: TAMI GONZALEZ on: 03/12/2025 06:51 PM Modules accepted: Orders documented in this encounter Plan of Treatment Upcoming Encounters Date Type Department Care Team (Late st Contact Info) Description 06/18/2025 12:15 PM EDT Office Visit [facility] [address] [place] [phone] Gertrude Li PA-C [address] [place] [address] documented as of this encounter Procedures Procedure Name Priority Date/Time Associated Diagnosis Comments [facility] GENERIC ORDER Routine 03/12/2025 1: 43 PM EDT Complex regional pain syndrome type 1 of right upper extremity GABAPENTIN, URINE Routine 03/12/2025 1:4 3 PM EDT Complex regional pain syndrome type 1 of right upper extremity CONTROLLED SUBSTANCE MONITORING, U Routine 03/12/2025 1:43 PM EDT Complex regional pain syndrome type 1 of right upper extremity UNLISTED LAB TEST Routine 03/12/2025 1:4 3 PM EDT Complex regional pain syndrome type 1 of right upper extremity documented in this encounter Results * ROCHELLE GENERIC ORDER (03/12/2025 1:43 PM EDT) TEST RESULT SEE COMMENTS 03/17/2025 3:33 PM EDT [facility] Comment: Test Result Flag Unit RefValue Pregabalin, urine SEE COMMENTS Test Result Flag Units Reference Range Pregabalin, UR Pregabalin 26.2 ug/mL This test was developed and its performance characteristics determined by [employer]. It has not been cleared or approved by the Food and Drug Administration. Test Performed by: [employer] [employer]. [address] [place] [address] Urine Urine / Unknown 03/12/2025 1 :43 PM EDT 03/12/2025 1:43 PM EDT us Gertrude Li PA-C LAB BLOOD ORDERABLES Final Result [facility] [address] [place] [address], * Pregabalin, Urine (03/12/2025 1:43 PM EDT) LOOK Sent to [facility]. 03/12/2025 6:45 PM EDT [facility] Urine Urine / Unknown 03/12/2025 1 :43 PM EDT 03/12/2025 1:43 PM EDT us Gertrude Li PA-C LAB BLOOD ORDERABLES Final Result [facility] [address] [place] [address], [place] [phone] * Gabapentin, Urine (03/12/2025 1:43 PM EDT) GABAPENTIN,URI NE Negative ug/mL 03/14/2025 8:27 PM EDT [facility] [employer] Comment: Test Performed by: [employer]. [address] [place] [id number] Urine Urine specimen collection, clean catch / Unknown 03/12/2025 1:43 PM EDT 03/12/2025 1:43 PM EDT Gertrude Li PA-C URINE ORDERABLES Final Resu lt Performing Organization Address City/[facility]/ZIP Co de Phone Number [facility] [address] [place] [address], * (ABNORMAL) Controlled Substance Monitoring, U (03/12/2025 1:43 PM EDT) Control Substance Panel, Urine SEE COMMENTS (A) 03/15/2025 8:01 AM EDT [facility] [employer] Comment: Test Result Flag Unit RefValue Controlled Substance Monitoring, U List Patient's Current HYDROCODONE Medications ADDITIONAL INFORMATION Accuracy and completeness of declared medications on reports solely dependent on information submitted by client. Creatinine, U 58.1 mg/dL Specific [place]asper 1.012 pH 5.6 Oxidants Negative Cutoff: 200 mg/L Comment Normal Barbiturates Negative [...] Not Detected ng/mL Cutoff: 25 Tylenol 3 Ahpmypu-1-uvvh- Not Detected ng/mL Cutoff: 100 glucuronide Metabolite of codeine Morphine Not Detected ng/mL Cutoff: 25 AviMarium holman, MS Contin; Also a minor metabolite (10%) of codeine and can be seen in low concentrations (<2,000 ng/mL) with poppy seed ingestion. Tcztetix-5-nous- Not Detected ng/mL Cutoff: 100 glucuronide Metabolite of morphine 6-monoacetylmorphine Not Detected ng/mL Cutoff: 25 Metabolite of heroin Hydrocodone Present A ng/mL Cutoff: 25 Lortab, [place], Vicodin; Also a very minor metabolite of codeine and impurity (<1%) of oxycodone. Norhydrocodone Present A ng/mL Cutoff: 25 Metabolite of hydrocodone Dihydrocodeine Present A ng/mL Cutoff: 25 Metabolite of hydrocodone Hydromorphone Not Detected ng/mL Cutoff: 25 Dilaudid, Exalgo; Also a metabolite of hydrocodone and a minor (<5%) metabolite of morphine. Gunjtgygpdqzx-3-pjay- Not Detected ng/mL Cutoff: 100 glucuronide Metabolite of hydromorphone Oxycodone Not Detected ng/mL Cutoff: 25 Endocet, Percocet, Oxycontin Noroxycodone Not Detected ng/mL Cutoff: 25 Metabolite of oxycodone Oxymorphone Not Detected ng/mL Cutoff: 25 Numorphan, Opana; Also a metabolite of oxycodone. Gkfsrbawhuf-2-thbo- Not Detected ng/mL Cutoff: 100 glucuronide Metabolite [...] Naloxone Not Detected ng/mL Cutoff: 25 Narcan Okeredet-4-ieyp- Not Detected ng/mL Cutoff: 100 glucuronide Metabolite [...] 20 glucuronide Metabolite of buprenorphine Opioid Interpretation SEE COMMENTS Test detected the presence of hydrocodone and its metabolites (norhydrocodone and dihydrocodeine). Suspect use of hydrocodone within the past three days. ADDITIONAL INFORMATION This test was developed and its performance characteristics determined by [facility] in a manner consistent with CLIA requirements. [...] Detected ng/mL Cutoff: 200 Metabolite of Clobazam Clonazepam Not Detected ng/mL Cutoff: 10 Klonopin, Rivotril 7-aminoclonazepam Not Detected ng/mL Cutoff: 10 Metabolite of Clonazepam Diazepam Not Detected ng/mL Cutoff: 10 Valium Nordiazepam Not Detected ng/mL Cutoff: 10 Metabolite of Chlordiazepoxide, Diazepam, or Prazepam. Flunitrazepam Not Detected ng/mL Cutoff: 10 Rohypnol 7-aminoflunitrazepam Not Detected ng/mL Cutoff: 10 Metabolite of Flunitrazepam Flurazepam Not Detected ng/mL Cutoff: 10 Dalmane 2-Hydroxy Ethyl Not Detected ng/mL Cutoff: 10 Flurazepam Metabolite of Flurazepam Lorazepam Not Detected ng/mL Cutoff: 10 Ativan Lorazepam Glucuronide Not Detected ng/mL Cutoff: 50 Metabolite of Lorazepam Midazolam Not Detected ng/mL Cutoff: 10 Versed Alpha-Hydroxy Midazolam Not Detected ng/mL Cutoff: 10 Metabolite of Midazolam Oxazepam Not Detected ng/mL Cutoff: 10 Serax; Also a metabolite of Chlordiazepoxide, Diazepam, or Temazepam. Oxazepam Glucuronide Not Detected ng/mL Cutoff: 50 Metabolite of Oxazepam Prazepam Not Detected ng/mL Cutoff: 10 Centrax Temazepam Not Detected ng/mL Cutoff: 10 Restoril; Also a metabolite of Diazepam. Temazepam Glucuronide Not Detected ng/mL Cutoff: 50 Metabolite of Temazepam Triazolam Not Detected ng/mL Cutoff: 10 Halcion Alpha-Hydroxy Triazolam Not Detected ng/mL Cutoff: 10 Metabolite of Triazolam Zolpidem Not Detected ng/mL Cutoff: 10 Ambien Zolpidem Phenyl-4- Not Detected ng/mL Cutoff: 10 Carboxylic acid Metabolite of Zolpidem Benzodiazepine SEE COMMENTS Interpretation No benzodiazepines were detected. The absence of expected drug(s) and/or drug metabolite(s) may indicate non-compliance, altered pharmacokinetics, inappropriate timing of specimen collection relative to drug administration, diluted/adulterated urine, or limitations of testing. ADDITIONAL INFORMATION This test was developed and its performance characteristics determined by [facility] in a manner consistent with CLIA requirements. This test has not been cleared or approved by the U.S. Food and Drug Administration. Methamphetamine Not Detected ng/mL Cutoff: 100 Desoxyn Amphetamine Not Detected ng/mL Cutoff: 100 Dyanavel XR, Adzenys ER, Adderall, Vyvanse; Also a metabolite of methamphetamine 3,4- Not Detected ng/mL Cutoff: 100 methylenedioxymethamphetamine (MDMA) 3,3-fbfgqkjwfyjlof-K- Not Detected ng/mL Cutoff: 100 ethylamphetamine (MDEA) 3,4- Not Detected ng/mL Cutoff: 100 methylenedioxyamphetamine (MDA) Also a metabolite of MDMA and/or MDEA Ephedrine Not Detected ng/mL Cutoff: 100 Pseudoephedrine Not Detected ng/mL Cutoff: 100 Sudafed Phentermine Not Detected ng/mL Cutoff: 100 Adipex-P, Lomaira, Qsymia Phencyclidine (PCP) Not Detected ng/mL Cutoff: 20 Methylphenidate Not Detected ng/mL Cutoff: 20 Ritalin, Concerta Ritalinic acid Not Detected ng/mL Cutoff: 100 Metabolite of methylphenidate Stimulant Interpretation SEE COMMENTS No stimulants were detected. The absence of expected drug(s) and/or drug metabolite(s) may indicate non-compliance, altered pharmacokinetics, inappropriate timing of specimen collection relative to drug administration, diluted/adulterated urine, or limitations of testing. ADDITIONAL INFORMATION This test was developed and its performance characteristics determined by [facility] in a manner consistent with CLIA requirements. This test has not been cleared or approved by the U.S. Food and Drug Administration. Test Performed by: [facility] - [address] [address] Clinical Staff Educator: Norbert Macario Ph.D.; CLIA# [id number] Urine / Unknown 03/12/2025 1 :43 PM EDT 03/12/2025 1:43 PM EDT us Gertrude Li PA-C URINE ORDERABLES Final Resu lt [facility] [address] [place] [address], documented in this encounter Visit Diagnoses Diagnosis Complex regional pain syndrome type 1 of right upper extremity- Primary documented in this encounter Care Teams Fiber Technician Relationship Specialty Start Date End Date Landon Marr MD [address] [place] [address] PCP - General Family Medicine 02/19/25 documented as of this encounter
--- OUTSIDE RECORDS SUMMARY | 2025-03-17 10:32 | XMS_ITS | Continuity of Care Document ---
Author Organization [facility] Address [address] [place] [address] Phone Care Team Providers Care Pc Analyst Name Role Phone Jori Garcia DO Attending Provider Eli Sprague MD Attending Provider [phone] NO FAMILY, PHYSICIAN Primary Care Provider Unava ilable Care Teams Patient Care Team Team Status: Active Member Role Status Dates PHYSICIAN NO FAMILY Primary Care Provider Active Visit Care Team Team Status: Inactive Member Role Status Dates Jori Garcia DO Attending Provider Active S tart: February 11, 2025 End: February 11, 2025 Patient Care Team Team Status: Inactive Member Role Status Dates Eli Sprague MD Attending Provider Active Star t: March 17, 2025 End: March 17, 2025 PHYSICIAN NO FAMILY Primary Care Provider Active Start: March 17, 2025 End: March 17, 2025 Chief Complaint and Reason for Visit Chief Complaint Admit Date Unknown February 11, 2025 6:40 pm Hospital f/u March 17, 2025 1:57 pm Reason for Visit Admit Date Anemia of renal disease March 17, 2025 1:57pm B12 deficiency March 17, 2025 1:57 pm Chronic kidney disease, stage IV (severe ) March 17, 2025 1:57pm CKD stage 3b, GFR 30-44 ml/min February 1:57pm Hyperparathyroidism March 17, 2025 1:57 pm Hypomagnesemia March 17, 2025 1:57 pm Neurogenic bladder March 17, 2025 1:57 pm Renal cyst March 17, 2025 1:57 pm Diabetic nephropathy associated with typ e 2 diabetes mellitus March 17, 2025 1:57pm Hyperkalemia March 17, 2025 1:57 pm Hypertensive nephropathy March 17, 2025 1:57pm Iron deficiency anemia March 17, 2025 1 :57pm Vitamin D deficiency March 17, 2025 1:5 7pm Allergies, Adverse Reactions, Alerts Allergen Type Severity Reaction Last Updated Verified Status latex Allergy Unknown Unresponsive March 17, 2025 11:21am Yes Active Social History Smoking Status Status Start Date End Date Date of Observa tion Never smoked tobacco (finding) March 17, 2025 2:09pm Observation Status Observation Response Date of Response Legal Sex Female (finding) Sex Assigned At Female 1960 Family History Relationship Condition Age at Onset [...] bladder Unknown Active B12 deficiency Unknown Active Chronic kidney disease, stage IV (severe) Unknow n Active Hyperparathyroidism Unknown Active Renal cyst Unknown [...] Active 20 MG PO Daily 2024 1:00am Complies with drug therapy Insulin Glargine (Lantus Solostar U-100 Insulin) 100 unit/mL (3 mL) insulin pen Active 28 UNIT SUBCUT Daily at bedtime 2024 1:00am FreeTextSi units Subcutaneous qam; Note: Source Status: Unknown; Provider: Julia Sara Carmencita Complies with drug therapy Insulin Lispro 100 unit/mL cartridge Active 1 slidin g scale dose SUBCUT Before meals 2024 1:00am FreeTextSi-6-8-10 units ac according to meal size tid. Corrective scale 1:25 ac, hs Subcutaneous As Directed; Note: Source Status: Unknown; Provider: Davide Ruiz Carmencita Complies with drug therapy Nitroglycer in 0.4 mg tablet, sublingual Active 0.4 MG SUBLIN GUAL Q5M as needed for chest pain 2024 1:00am Complies with drug therapy Furosemide 40 mg Tablet Discont inued 40 MG PO BID@0800,16 00 60 30 2024 1:00am March 17, 2025 2:08p m Sodium Bicarbonate 650 mg Tablet Discont inued 650 MG PO Three times daily 90 30 2024 1:00am November 23, 2024 8:47p m Amoxicillin 500 mg capsule Discont inued 500 MG PO Three times daily 9 3 2024 1:00am November 26, 2024 11:57 am Amlodipine 5 mg tablet Discont inued 10 MG PO Daily 0 30 2024 11:39a m November 23, 2024 8:47p m Cyanocobala min (Vitamin B-12) 1,000 mcg capsule Active 1000 MCG PO Daily 90 2024 1:00am Complies with drug therapy Ergocalcife rol (Vitamin D2) 1,250 mcg (50,000 unit) capsule Active 1250 MCG PO every week 9 60 2024 1:00am Complies with drug therapy Amlodipine 5 mg tablet Discont inued 5 MG PO Daily November 23, 2024 12:00a m November 26, 2024 11:57 am Amoxicillin -Pot Clavulanate 875-125 mg tablet Discont inued 1 TAB PO Twice daily 10 5 November 26, 2024 12:00a m March 17, 2025 2:08p m Amlodipine 10 mg Tablet Active 10 MG PO Daily November 26, 2024 12:00a m Complies with drug therapy Pregabalin 150 mg capsule Discont inued 150 MG PO Three times daily [facility] 2023 12:00a m Aug 2024 12:22 pm Ondansetron 4 mg tablet,disi ntegrating Discont inued 4 MG PO Every 8 hours as needed for nausea and vomiting [facility] 2023 12:00a m November 23, 2024 8:46p m Fluticasone Propionate 50 mcg/actuati on spray,suspe nsion Discont inued INTRAN SAULO [facility] 2023 12:00a m Aug 2024 12:22 pm Cetirizine 10 mg tablet Active 10 MG PO Daily as needed for allergy symptoms [facility] 2023 12:00a m Complies with drug therapy Hydrocodone -Acetaminop hen 7.5-325 mg tablet Discont inued 1 TAB PO Three times daily as needed [facility] 2023 12:00a m Aug 2024 12:22 pm Ferrous Sulfate 325 mg (65 mg iron) tablet Active 325 MG PO Daily [facility] 2023 12:00a m Complies with drug therapy Calcitriol 0.25 mcg capsule Discont inued 0.25 MCG PO 3 Times a week [facility] 2023 12:00a m November 23, 2024 8:45p m Fluticasone Propionate 50 mcg/actuati on spray,suspe nsion Active 2 SPRAY INTRAN SAULO Daily as needed for nasal congestion 2024 12:18p m Complies with drug therapy Hydrocodone -Acetaminop hen 7.5-325 mg tablet Active 1 TAB PO Every 8 hours 2024 12:19p m Complies with drug therapy Pregabalin 150 mg capsule Active 150 MG PO Every 8 hours 2024 12:19p m Complies with drug therapy Amlodipine 5 mg tablet Discont inued MG [...] 50 MG PO Daily 2024 12:28p m Complies with drug therapy Furosemide (Lasix) 40 mg tablet Active 40 MG PO Daily 90 March 17, 2025 12:00a m Complies with drug therapy Procedures Procedure Date Performed Status Urine Culture February 11, 2025 completed Relevant Diagnostic Tests and/or Laboratory Data Microbiology Results Procedure Source Result Collection Date/Time Result Date/Time Result Comment Performing Site Urine Culture Urine, Clean-Voided Midstream Escherichia coli February 11, 2025 6:40pm February 14, 2025 9:37am [facility] [id number] [address] [place] [address] Vital Signs Vital Reading Result Reference Range Collection Date/Time Height 60 [in_i] March 17, 2025 2:05pm Weight 58.68 kg March 17, 2025 2:05pm Heart Rate 72 /min 60-100 March 17, 2025 2:05pm Respiratory rate 16 /min -March 17, 2025 2:05pm Oxygen saturation by Pulse oximetry 97 % 95-10 0 March 17, 2025 2:05pm BP Systolic 145 mm[Hg] 100-140 March 17, 2025 2:05pm BP Diastolic 75 mm[Hg] 60-100 March 17, 2025 2:05pm BMI (Body Mass Index) 25.2 kg/m2 February 192024 2:05pm Advance Directives Advance Directive Response Recorded Date/ Time Advance Directives No April 09, 2024 11:42am Insurance Providers Guarantor Ashok Calix Address [address] [place] [id number] Contact Info. Home Phone: Payer Policy Id Subscriber's Name Subscriber Id Effectiv e Date Expiration Date Medicare [id number] Ashok Calix [id number] [facility] [id number] Ashok Calix [id number] Encounters Encounter Location(s) Arrival/Admit Date Discharge/Depart Date Provider(s) Departed Referred -[facility] February 11, 2025 6:40pm February 11, 2025 6:41pm Primo Thompson DO Departed Physician/Prov ider Office Visit -[facility] Nephrology Michael March 17, 2025 1:57pm March 17, 2025 2:30pm Eli Sprague MD Recent Diagnosis Onset Date Admit Date Anemia of renal disease Unknown February 1:57pm B12 deficiency Unknown March 17, 2025 1:57pm Chronic kidney disease, stage IV (severe) Unknow n March 17, 2025 1:57pm CKD stage 3b, GFR 30-44 ml/min Unknown J ilsa 2024 1:57pm Hyperparathyroidism Unknown March 17, 025 1:57pm Hypomagnesemia Unknown March 17, 2025 1:57pm Neurogenic bladder Unknown March 17 1:57pm Renal cyst Unknown March 17, 2025 1:57pm 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 Unknown March 17, 2025 1:57pm Hyperkalemia Unknown March 17, 2025 1:57pm Hypertensive nephropathy Unknown March 172024 1:57pm Iron deficiency anemia Unknown February 1:57pm Vitamin D deficiency Unknown March 17, 2025 1:57pm Assessments Diagnosis Onset Date Resolution Status Admit Date Anemia of renal disease acute J 2024 1:57pm B12 deficiency acute March 17, 2025 1:57pm Chronic kidney disease, stag e IV (severe) acute March 17, 2025 1:57pm CKD stage 3b, GFR 30-44 ml/min acute March 17, 2025 1:57pm Hyperparathyroidism acute March 17, 2025 1:57pm Hypomagnesemia acute March 17, 2025 1:57pm Neurogenic bladder acute February 192024 1:57pm Renal cyst acute March 17 1:57pm 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 resolved Ju ly 2024 1:57pm Hyperkalemia resolved March 17, 2 025 1:57pm Hypertensive nephropathy resolved March 17, 2025 1:57pm Iron deficiency anemia resolved Ju 2024 1:57pm Vitamin D deficiency resolved March 17, 2025 1:57pm Plan of Treatment Author Eli Sprague [facility] Authored March 17, 2025 2:28 pm This is a likely etiology of the patient's CKD. 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 I explained the patient the necessity of chemotherapy under good control to avoid serious Complications including progressive CKD and dialysis Hemoglobin is down to 9.4. Will check iron storage along with folate and vitamin B12 next visit. Will start GIANLUCA if the patient has storages adequate S/p resection. 2023. Follows with [facility] urology clinic This is likely due to worsening kidney function. Hyperkalemia was treated medically while inpatient without needing dialysis. Last potassium levels 5.0 mmol/L. Start the patient on Lasix 40 mg p.o. daily. Patient was given list of the food that has high potassium to avoid Blood pressure is better controlled. Currently only on metoprolol and Norvasc. Will start the patient on Lasix 40 mg for controlling potassium and blood pressure. No PTH for this visit. Last PTH was down to 103 from 216 with calcitriol. Currently not on calcitriol. Will check PTH next visit and decide about resuming calcitriol Patient is currently taking vitamin B12 supplement. Check vitamin B12 next visit It is likely from long history of uncontrolled diabetes. Follows with [facility] urology clinic. She was told that she needs new bladder or suprapubic catheter. I encouraged the patient to follow with urologist for appropriate catheter to avoid more ANATOLIY patient is currently on magnesium supplement. Will check magnesium level next visit No iron saturation study for this visit. Will check iron stores study next visit Check 25-hydroxy vitamin D next visit. 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 Chronic kidney disease has progressed from frequent ANATOLIY related to recurrent hydronephrosis. Patient has known h/o neurogenic bladder and she was told she needed new bladder or suprapubic catheter Last creatinine 3.0 mg/dL at hospital discharge. GFR down to 16 mL.. Will set up the patient with kidney smart classes Blood pressure under better blood pressure control to preserve kidney function And avoid NSAIDs completely. I will follow-up with the patient in 2 months Future Tests Future scheduled test information is unavailable Pending Tests Test Name Ordered Date Scheduled Date Renal Function Panel March 17, 2025 2:22pm 2 Mo nths Future Visits Future appointment information is unavailable Referrals to Other Providers Referral information is unavailable Future Procedures Procedure Name Ordered Date Scheduled Date Hemogram CBC Without Diff March 17, 2025 2:22pm 2 Months Iron and TIBC Profile March 17, 2025 2:22pm 2 M onths Ferritin March 17, 2025 2:22pm 2 Months Magnesium March 17, 2025 2:22pm 2 Months Protein Creat Ratio Ur Random March 17, 2025 2: 22pm 2 Months Parathyroid Hormone Intact March 17, 2025 2:22p m 2 Months Uric Acid March 17, 2025 2:22pm 2 Months Vit. B12/Folate Profile March 17, 2025 2:22pm 2 Months Vitamin D 25 Hydroxy Total March 17, 2025 2:22p m 2 Months Future Medications Future medication information is unavailable Patient Instructions Patient instructions are unavailable
--- OUTSIDE RECORDS SUMMARY | 2025-03-25 10:44 | XMS_ITS | Encounter Summary ---
Author Organization [facility] Address [address] [place] [address] Care Team Providers Care Glass Sander Belt Name Role Phone Kofi Gotti MD Primary Care Provider [phone] Lissette Matamoros LPN Unavailable Unavailable Unallocated, Noms Provider Primary Care Provi emiliana Latosha Olmstead INSTRUCTIONAL DESIGN CONSULTANT Unavailable [phone] Kofi Gotti MD Primary Care Provider [phone] Ninfa Canela MA Unavailable [phone] Unallocated, Noms Provider Primary Care Provi emiliana Encounter Details Date Type Department Care Team (Late st Contact Info) Description 11/02/2023 Orders Only [facility] [address] [place] [address] Latosha Olmstead, INSTRUCTIONAL DESIGN CONSULTANT [address] [place] [address] Type 2 diabetes mellitus with hyperglycemia, with [...] How often do you attend chur or evangelical services? Never 10/11/2023 Do you belong to [...] Recorded Patient Health Questionnaire-2 Score 2 10/11/2023 [facility] [place] of Occupat ional Health - Occupational Stress [...] documented as of this encounter Care Teams Glass Sander Belt Relationship Specialty Start Date End Date Kofi Gotti MD [address] [place] [address] PCP - General Family Medicine 10/09/23 06/10/24 Unallocated, Noms Provider, MD [address] [place] [address] PCP - General Family Medicine 06/11/24 06/19/24 Kofi Gotti MD [address] [place] [address] PCP - General Family Medicine 06/20/24 02/02/25 Unallocated, Jah Mirza MD [address] [facility] [place] [address] PCP - General Family Medicine 02/03/25 Lissette Matamoros LPN Licensed Practical Nurse Family Medicine 01/22/2401/24/24 Latosha Olmstead NP [address] [place] [address] Nurse Practitioner Family Medicine 06/11/24 02/02/25 Ninfa Canela MA [address] [place] [address] Family Medicine 09/13/24 01/30/25 documented as of this encounter
--- OUTSIDE RECORDS SUMMARY | 2025-03-25 10:44 | XMS_ITS | Encounter Summary ---
Author Organization [facility] Address [address] [place] [address] Care Team Providers Care Uplands Division Director Name Role Phone Kofi Gotti MD Primary Care Provider [phone] Lissette Matamoros LPN Unavailable Unavailable Unallocated, Noms Provider Primary Care Provi emiliana Latosha Olmstead NP Unavailable [phone] Kofi Gotti MD Primary Care Provider [phone] Ninfa Canela MA Unavailable [phone] Unallocated, Noms Provider Primary Care Provi emiliana Encounter Details Date Type Department Care Team (Late st Contact Info) Description 01/11/2024 Orders Only [facility] [address] [place] [address] Latosha Olmstead, FIELD SALES ENGINEER [address] [place] [address] Social History Tobacco Use Types Packs/Day Years [...] How often do you attend chur or yazidi services? Never 10/11/2023 Do you [...] Recorded Patient Health Questionnaire-2 Score 0 12/21/2023 [facility] [place] of Occupat ional Health - Occupational Stress [...] Electrocardiogram Report (01/10/2024 8:23 AM EDT) us Ltaosha Olmstead NP IN CLINIC/BEDSIDE ORDERABLES Fi nal Result documented in this encounter Visit Diagnoses Not on filedocumented in this encounter Additional Health Concerns Assessment Noted Time PHQ-9 Depression Total Score: 6 10/11/19 24 3:16 PM EST documented as of this encounter Care Teams Uplands Division Director Relationship Specialty Start Date End Date Kofi Gotti MD [address] [place] [address] PCP - General Family Medicine 10/09/23 06/10/24 Unallocated, Jah Mirza MD [address] [place] [address] PCP - General Family Medicine 06/11/24 06/19/24 Kofi Gotti MD [address] [place] [address] PCP - General Family Medicine 06/20/24 02/02/25 Unallocated, Jah Mirza MD [address] [place] [address] PCP - General Family Medicine 02/03/25 Lissette Matamoros LPN Licensed Practical Nurse Family Medicine 01/22/2401/24/24 Latosha Olmstead NP [address] [place] [address] Nurse Practitioner Family Medicine 06/11/24 02/02/25 Ninfa Canela MA [address] [place] [address] Family Medicine 09/13/24 01/30/25 documented as of this encounter
--- OUTSIDE RECORDS SUMMARY | 2025-03-25 10:45 | XMS_ITS | Encounter Summary ---
Author Organization [facility] Address [address] [place] [address] Care Team Providers Care Engine Hostler Name Role Phone Kofi Gotti MD Primary Care Provider Unallocated, Noms Provider Primary Care Provi emiliana Latosha Olmstead VP LEGAL AFFAIRS Unavailable [phone] Kofi Gotti MD Primary Care Provider Ninfa Canela MA Unavailable [phone] Unallocated, Noms Provider Primary Care Provi emiliana Encounter Details Date Type Department Care Team (Late st Contact Info) Description 04/17/2024 Orders Only [facility] [address] [place] [address] Latosha Olmstaed, VP LEGAL AFFAIRS [address] [place] [address] Social History Tobacco Use Types Packs/Day Years [...] you attend chur ch or presybeterian services? Never 10/11/2023 Do you belong to [...] Recorded Patient Health Questionnaire-2 Score 2 01/17/2024 [facility] [place] of Occupat ionfl Health - Occupational Stress [...] documented as of this encounter Care Teams Engine Hostler Relationship Specialty Start Date End Date Kofi Gotti MD [address] [place] [address] PCP - General Family Medicine 10/09/23 06/10/24 Unallocated, Jah Mirza MD [address] [place] [address] PCP - General Family Medicine 06/11/24 06/19/24 Kofi Gotti MD [address] [place] [address] PCP - General Family Medicine 06/20/24 02/02/25 Unallocated, Jah Mirza MD [address] [place] [address] PCP - General Family Medicine 02/03/25 Latosha Olmstead NP [address] [place] [address] Nurse Practitioner Family Medicine 06/11/24 02/02/25 Ninfa Canela MA [address] [place] [address] Family Medicine 09/13/24 01/30/25 documented as of this encounter
--- OUTSIDE RECORDS SUMMARY | 2025-03-25 10:45 | XMS_ITS | Encounter Summary ---
Author Organization [facility] [employer] [facility] tem Address [id number] [address] [place] [address] Care Team Providers Care Police Captain Precinct Name Role Phone Kapil Marr MD Primary Care Provider [phone] Encounter Details Date Type Department Care Team (Late st Contact Info) Description 04/26/2022 Telephone [facility] [address] [place] [phone] Yesenia Burnett RN Social History Tobacco Use [...] any clubs o r organizations such as cheondoism groups, unions, fraternal or athletic groups, or [...] Recorded Do you need help finding a [facility] and/or a training program? No 08/13/2020 [...] AM EDT Call placed to [facility]: prior auth request for pregabalin. Vamp Cut Out Worker spoke with Paige andasked if script had been submitted through [facility]. Paige checks into this and verifies that script wentthrough [facility] and patient has $0 co-pay. documented in this encounter Plan of Treatment Upcoming Encounters Date Type Department Care Team (Late st Contact Info) Description 06/18/2025 12:15 PM EDT Office Visit [facility] [address] [place] [phone] Gertrude Li PA-C [address] [place] [address] documented as of this encounter Visit Diagnoses Not on filedocumented in this encounter Care Teams Police Captain Precinct Relationship Specialty Start Date End Date Kapil Marr MD [address] [facility] [place] [address] PCP - General Family Medicine 02/19/25 documented as of this encounter
--- OUTSIDE RECORDS SUMMARY | 2025-03-25 10:45 | XMS_ITS | Encounter Summary ---
Author Organization [facility] Address [address] [facility] [place] [address] Care Team Providers Care Production Operations Manager Name Role Phone Kofi Gotti MD Primary Care Provider [phone] Lissette Matamoros LPN Unavailable Unavailable Unallocated, Noms Provider Primary Care Provi emiliana Latosha Olmstead NP Unavailable [phone] Kofi Gotti MD Primary Care Provider [phone] Ninfa Canela MA Unavailable [phone] Unallocated, Noms Provider Primary Care Provi emiliana Encounter Details Date Type Department Care Team (Late st Contact Info) Description 01/10/2024 Orders Only [facility] [address] [place] [address] Latosha Olmstead, TELEMETRY TECH [address] [place] [address] Social History Tobacco Use Types [...] How often do you attend chur or presybeterian services? Never 10/11/2023 Do you [...] Recorded Patient Health Questionnaire-2 Score 0 12/21/2023 [facility] [employer] of Occupat ional Health - Occupational Stress [...] Chest Radiographic Cristiana ging us Latosha Olmstead TELEMETRY TECH IMG XR PROCEDURES Final Result documented in this encounter Visit Diagnoses Not on filedocumented in this encounter Additional Health Concerns Assessment Noted Time PHQ-9 Depression Total Score: 6 10/11/19 24 3:16 PM EST documented as of this encounter Care Teams Production Operations Manager Relationship Specialty Start Date End Date Kofi Gotti MD [address] [place] [address] PCP - General Family Medicine 10/09/23 06/10/24 Unallocated, Jah Mirza MD [address] [place] [address] PCP - General Family Medicine 06/11/24 06/19/24 Kofi Gotti MD [address] [place] [address] PCP - General Family Medicine 06/20/24 02/02/25 Unallocated, Jah Mirza MD [address] [place] [address] PCP - General Family Medicine 02/03/25 Lissette Matamoros LPN Licensed Practical Nurse Family Medicine 01/22/2401/24/24 Latosha Olmstead NP [address] [place] [address] Nurse Practitioner Family Medicine 06/11/24 02/02/25 Ninfa Canela MA [address] [place] [address] Family Medicine 09/13/24 01/30/25 documented as of this encounter
--- OUTSIDE RECORDS SUMMARY | 2025-03-25 10:45 | XMS_ITS | Clinical Summary ---
Author Organization [facility] Address [address] [place] [address] Care Team Providers Care Linotype Machinist Name Role Phone Unavailable Primary Care Provider [...]
--- OUTSIDE RECORDS SUMMARY | 2025-03-25 10:45 | XMS_ITS | Encounter Summary ---
Author Organization [facility] [employer] [facility] tem Address [id number] [address] [place] [address] Care Team Providers Care Factory Process Workers Name Role Phone Kapil Marr MD Primary Care Provider [phone] Reason for Visit * Reason Onset Date Comments Med Refill 03/13/2025 Encounter Details Date Type Department Care Team (Late st Contact Info) Description 03/13/[address] [facility] [address] [place] [address] Latosha Gray CNA Complex regional pain syndrome type 1 of right upper extremity; [...] often do you attend chur ch or samaritan services? Patient declined 08/13/2020 Do you belong to any clubs o r organizations such as adventist groups, unions, fraternal or athletic groups, or [...] Recorded Do you need help finding a [employer] career center and/or a training program? [...] Telephone Encounter - Latosha Gray CNA - 03/13/2025 12:01 PM EDT Last OV: 03/11/25 Next OV: 06/18/25 OARRS appropriate: yes Last UDS: 03/11/25 Pharmacy: [facility] documented in this encounter Plan of Treatment Upcoming Encounters Date Type Department Care Team (Late st Contact Info) Description 06/18/2025 12:15 PM EDT Office Visit [facility] [address] [place] [address] Gertrude Li, PAJaya [address], [address] [place] [address] documented as of this encounter Visit Diagnoses Diagnosis Complex regional pain syndrome type 1 of right upper extremity Reflex sympathetic dystrophy of right upper extremity documented in this encounter Care Teams Factory Process Workers Relationship Specialty Start Date End Date Kapil Marr MD [address] [place] [address] PCP - General Family Medicine 02/19/25 documented as of this encounter
--- OUTSIDE RECORDS SUMMARY | 2025-03-25 10:45 | XMS_ITS | Encounter Summary ---
Author Organization [facility] Address [address] [place] [address] Care Team Providers Care Assistant Quality Manager Name Role Phone Kofi Gotti MD Primary Care Provider Unallocated, Noms Provider Primary Care Provi emiliana Latosha Olmstead CREDIT REVIEW OFFICER Unavailable [phone] Kofi Gotti MD Primary Care Provider [phone] Ninfa Canela MA Unavailable [phone] Unallocated, Noms Provider Primary Care Provi emiliana Encounter Details Date Type Department Care Team (Late st Contact Info) Description 04/18/2024 Orders Only [facility] [address] [place] [address] Latosha Olmstead, CREDIT REVIEW OFFICER [address] [place] [address] Social History Tobacco Use Types Packs/Day Years [...] often do you attend chur ch or yazdanism services? Never 10/11/2023 Do you [...] Recorded Patient Health Questionnaire-2 Score 2 01/17/2024 [facility] [place] [facility] Health - Occupational Stress Questionnaire Answer Date [...] Chest Radiographic Cristiana ging us Latosha Olmstead CREDIT REVIEW OFFICER IMG XR PROCEDURES Final Result documented in this encounter Visit Diagnoses Not on filedocumented in this encounter Additional Health Concerns Assessment Noted Time PHQ-9 Depression Total Score: 6 10/11/19 24 3:16 PM EST documented as of this encounter Care Teams Assistant Quality Manager Relationship Specialty Start Date End Date Kofi Gotti MD [address] [place] [address] PCP - General Family Medicine 10/09/23 06/10/24 Unallocated, Jah Mirza MD [address] [place] [address] PCP - General Family Medicine 06/11/24 06/19/24 Kofi Gotti MD [address] [place] [address] PCP - General Family Medicine 06/20/24 02/02/25 Unallocated, Jah Mirza MD [address] [place] [address] PCP - General Family Medicine 02/03/25 Latosha Olmstead NP [address] [place] [address] Nurse Practitioner Family Medicine 06/11/24 02/02/25 Ninfa Canela MA [address] [place] [address] Family Medicine 09/13/24 01/30/25 documented as of this encounter
--- OUTSIDE RECORDS SUMMARY | 2025-03-25 10:45 | XMS_ITS | Encounter Summary ---
Author Organization [facility] [employer] [facility] tem Address [id number] [address] [place] [address] Care Team Providers Care Certified Lactation Counselor Name Role Phone Kapil Marr MD Primary Care Provider [phone] Reason for Visit * Reason Onset Date Comments Med Refill 07/10/2020 Med Refill 07/28/2020 Encounter Details Date Type Department Care Team (Late st Contact Info) Description 07/10/2020 Refill [facility] [address] [place] [address] Lila Che, REY Complex regional pain syndrome type [...] 9:51 AM RX called in to [facility] [place] [facility] [place]. Barbara Lucero RN 07/13/20 0951 documented in this encounter Plan of Treatment Upcoming Encounters Date Type Department Care Team (Late st Contact Info) Description 06/18/2025 12:15 PM EDT Office Visit [facility] [address] [place] [address] Gertrude Li PAJuan JoseC [address] [place] [address] documented as of this encounter Visit Diagnoses Diagnosis Complex regional pain syndrome type 1 of right upper extremity documented in this encounter Additional Health Concerns Infection Onset Date Last Indicated Resolved Time COVID-19 Positive 09/28/2021 09/28/2021 10/19/2021 11:12 PM EST documented as of this encounter Care Teams Certified Lactation Counselor Relationship Specialty Start Date End Date Kapil Marr MD [address] [facility], [place] [address] PCP - General Family Medicine 02/19/25 documented as of this encounter
--- OUTSIDE RECORDS SUMMARY | 2025-03-25 10:45 | XMS_ITS | Encounter Summary ---
Author Organization [facility] Address [address] [place] [address] Care Team Providers Care Public Relations Supervisor Name Role Phone Kofi Gotti MD Primary Care Provider [phone] Unallocated, Noms Provider Primary Care Provi emiliana Latosha Olmstead NP Unavailable [phone] Kofi Gotti MD Primary Care Provider Ninfa Canela MA Unavailable [phone] Unallocated, Noms Provider Primary Care Provi emiliana Encounter Details Date Type Department Care Team (Late st Contact Info) Description 04/17/2024 Clinisync Result Encounter [facility] External Department Unsolicited Latosha Olmstead, CUTTER V [place] [address] [place] [address] Social History Tobacco Use Types Packs/Day Years [...] often do you attend chur ch or lutheran services? Never 10/11/2023 Do you belong to any clubs o r organizations such as yazidism groups, unions, fraternal or athletic groups, or [...] Patient Health Questionnaire-2 Score 2 01/17/2024 [facility] - Occupational [...] place to sleep or slept in a correction (including now)? No 10/11/2023 Comments Unknown Sex [...] EDT Narrative 04/17/2024 12:40 PM EDT The [address] [address] Mammography Report Signed Patient: AISLINN CARNES MR#: [id number] : 1960 Acct:[id number] Age/Sex: 63 / F ADM Date: 04/17/24 Loc: MAMMO Attending Dr: Latosha Olmstead NP Ordering Physician: Latosha Olmstead NP Results: Date of Service: 04/17/24 Follow Up: Procedure(s): MM tomosynthesis screening BI Accession Number(s): [id number] cc: Latosha Olmstead NP Patient Name: AISLINN CARNES MR#: [id number] : 1960 Exam Date: 04/17/2024 Ordering Doctor: [...] brain cancer at age 58. LOCATION: [facility] BREAST COMPOSITION: The breasts are heterogeneously [...] Signed By: 04/17/24 1240 DD/ 1239 TD/TT: Stringed Instrument Assembler: Procedure Note Radiology, Radiologist, - 04/17/2024 [place] [address] Mammography Report Signed Patient: AISLINN CARNES MMR#: [id number] : 8Acct:[id number] Age/Sex: 63 / FADM Date: 04/17/24 Loc: MAMMO Attending Dr: Latosha Olmstead C[place] Ordering Physician: Latosha Olmstead NPResults: Date of Service: 04/17/24Follow Up: Procedure(s): MM tomosynthesis screening BI Accession Number(s): [id number] cc: Latosha Olmstead NP Patient Name: AISLINN CARNES MR#: [id number] : 1960 Exam Date: 04/17/2024 Ordering Doctor: [...] brain cancer at age 58. LOCATION: [facility] BREAST COMPOSITION: The breasts are heterogeneously [...] M.D. Signed By:04/17/24 1240 DD/ 1239 TD/TT: Stringed Instrument Assembler: Latosha Olmstead NP [facility] Final Result documented in this encounter Visit Diagnoses Not on filedocumented in this encounter Additional Health Concerns Assessment Noted Time PHQ-9 Depression Total Score: 6 10/11/19 24 3:16 PM EST documented as of this encounter Care Teams Public Relations Supervisor Relationship Specialty Start Date End Date Kofi Gotti MD [address] [place] [address] PCP - General Family Medicine 10/09/23 06/10/24 Unallocated, Jah Mirza MD [address] [place] [address] PCP - General Family Medicine 06/11/24 06/19/24 Kofi Gotti MD [address] [place] [address] PCP - General Family Medicine 06/20/24 02/02/25 Unallocated, Jah Mirza MD [address] [place] [address] PCP - General Family Medicine 02/03/25 Latosha Olmstead NP [address] [place] [address] Nurse Practitioner Family Medicine 06/11/24 02/02/25 Ninfa Canela MA [address] [place] [address] Family Medicine 09/13/24 01/30/25 documented as of this encounter
--- OUTSIDE RECORDS SUMMARY | 2025-03-25 10:45 | XMS_ITS | Encounter Summary ---
Author Organization [facility] [facility] tem Address [facility][id number] [address] [place] [address] Care Team Providers Care Data Officer Name Role Phone Kapil Marr MD Primary Care Provider [phone] Reason for Visit * Reason Onset Date Comments Med Refill 10/05/2018 Encounter Details Date Type Department Care Team (Late st Contact Info) Description 10/05/2018 Refill [facility] [address] [place] [phone] Barbara Lucero RN Reflex sympathetic dystrophy of [...] Description 06/18/2025 12:15 PM EDT Office Visit [facility] [address] [place] [phone] Gertrude Li PA-C [address] [place], [place] [phone] documented as of this encounter Visit Diagnoses Diagnosis Reflex sympathetic dystrophy of right upper extremity documented in this encounter Additional Health Concerns Infection Onset Date Last Indicated Resolved Time COVID-19 Positive 09/28/2021 09/28/2021 10/19/2021 11:12 PM EST documented as of this encounter Care Teams Data Officer Relationship Specialty Start Date End Date Kapil Marr MD [address] [place] [address] PCP - General Family Medicine 02/19/25 documented as of this encounter
--- OUTSIDE RECORDS SUMMARY | 2025-03-25 10:45 | XMS_ITS | Encounter Summary ---
Author Organization [facility] [employer] [facility] tem Address [id number] [address] [place] [address] Care Team Providers Care Registered Occupational Therapist Name Role Phone Kapil Marr MD Primary Care Provider [phone] Reason for Visit * Reason Onset Date Comments Med Refill 03/19/2025 Encounter Details Date Type Department Care Team (Late st Contact Info) Description 03/19/2025 Refill [facility] [address] [place] [address] Virginia Pierce, RN Social History Tobacco Use Types Packs/Day [...] often do you attend chur ch or restorationism services? Patient declined 08/13/2020 Do you belong [...] Recorded Do you need help finding a [employer]ie career center and/or a training program? No [...] 12:15 PM EDT Office Visit [facility] [address] [place] [address] Gertrude Li, PA-C [address] [place] [address] documented as of this encounter Visit Diagnoses Not on filedocumented in this encounter Care Teams Registered Occupational Therapist Relationship Specialty Start Date End Date Kapil Marr MD [address] [facility], [place] [address] PCP - General Family Medicine 02/19/25 documented as of this encounter
--- OUTSIDE RECORDS SUMMARY | 2025-03-25 10:45 | XMS_ITS | Encounter Summary ---
Author Organization [facility] Address [facility] [place] [address] Care Team Providers Care Head Men'S Golf Coach Name Role Phone Lisa Porras MD Unavailable Latosha Olmstead Primary Care Provider Unavailisidra e Latosha Olmstead Unavailable Unavailable Source Comments In the event this information is protected by the Federal Confidentiality of Alcohol and Drug AbusePatient Records regulations: The Federal rules restrict any use of the information to criminally investigate or prosecute any alcohol or drug abuse patient.[facility] Encounter Details Date Type Department Care Team (Late st Contact Info) Description 07/05/2023 Patient Msg Urology [address] [place], [place] [phone] Manolo Ballard MD [address] [place] [address] Pathology Social History Tobacco Use Types Packs/Day Years Used Date Smoking Tobacco: Never Smokeless Tobacco: Never Alcohol Use Standard Drinks/Week Comments Yes 0 (1 standard drink = 0.6 oz pur e alcohol) rarely--holiday or special [facility] Area Deprivation Index Answer Date Al rded National Score (1-100), lower number is lower [facility] 89 05/17/2023 State Score (1-10), lower number is lower risk 8 05/17/2023 Data from: https://www.neighborhoodatlas.[facility].edu/. Last address used for calculation [address] [...] documented as of this encounter Care Teams Head Men'S Golf Coach Relationship Specialty Start Date End Date Latosha Olmstead [address] [place] [address] PCP - General 05/17/23 Lisa Porras MD [address] [place] [address] Referring Urology 05/11/23 [facility] [address] [place] [address] Referring 01/04/24 documented as of this encounter
--- OUTSIDE RECORDS SUMMARY | 2025-03-25 10:45 | XMS_ITS | Encounter Summary ---
Author Organization [facility] Address [address] [place] [address] Care Team Providers Care Grave Cleaner Name Role Phone Latosha Olmstead NP Unavailable [phone] Kofi Gotti MD Primary Care Provider Ninfa Canela MA Unavailable [phone] Unallocated, Noms Provider Primary Care Provi emiliana Encounter Details Date Type Department Care Team (Late st Contact Info) Description 09/04/2024 Orders Only [facility] [address] [place] [address] Suah Vanegas MD [address] [place] [address] Social History Tobacco Use Types [...] often do you attend chur ch or shinto services? Never 10/11/2023 Do you belong to [...] 2 01/17/2024 [facility] - Occupational Stress Questionnaire Answer [...] documented as of this encounter Care Teams Grave Cleaner Relationship Specialty Start Date End Date Kofi Gotti MD [address] [place] [address] PCP - General Family Medicine 06/20/24 02/02/25 Unallocated, Noms MD Yuki [address] [place] [address] PCP - General Family Medicine 02/03/25 Latosha Olmstead NP [address] [place] [address] Nurse Practitioner Family Medicine 06/11/24 02/02/25 Ninfa Canela, JOHNNY [address] [place] [address] Family Medicine 09/13/24 01/30/25 documented as of this encounter
--- OUTSIDE RECORDS SUMMARY | 2025-03-25 10:45 | XMS_ITS | Clinical Summary ---
Author Organization [facility] Address [address] [place] [address] Care Team Providers Care Anthropology And Archeology Instructor Name Role Phone Lisa Porras MD Unavailable [...] had surgeries. Follows with pain management at [facility]-- on Lyrica and Donner Neurogenic bladder 06/06/2023 Assessment & Plan (06/06/2023 1:32 PM EDT): Assessment: Previous had to self cath Gets botox injections and no longer has to cath Follows with Dr. Porras at [facility] Stage 3a chronic kidney disease 06/06/2023 Assessment & Plan (06/15/2023 1:18 PM EDT): Assessment: follows with nephrology at [facility] Repeat labs scanned Potassium 4.9 Cr 1.68 [...] Assessment: on insulin managed by endocrinology at [facility], saw KIARA 06/08 and had insulin increased. [...] or slept in a retirement (including now)? Patient refused 08/31/2023 Housing Stability [...] is lower risk 8 05/17/2023 Data from: https://www.neighborhoodatlas.medicine.[facility].edu/. Last address used for calculation [address] [...] history exists Urine Albumin:Creatinine Ratio 04/04/2024 04/04/2023 Advance Directive Discussion 08/21/2024 Medicare Advantage Annual [...] - 0.96 mg/dL 02/01/2024 2:49 PM EDT [facility] Estimated Glomerular Filtration Rate 31(L) >=60 mL/min/1.7 3m 02/01/2024 2:49 PM EDT [facility] Comment:Estimated Glomerular Filtration Rate (eGFR) [...] Manolo Ballard MD LABORATORY Final Resul t [facility] [address] [place] [address] * (ABNORMAL) CBC (09/03/2023 4:41 AM EST) WBC 6.44 3.70 - 11.00 k/uL 09/03/2023 5:16 AM EST [facility] RBC 3.70(L) 3.90 - 5.20 m/uL 09/03/2023 5:16 AM EST [facility] Hemoglobin 8.9(L) 11.5 - 15.5 g/dL 09/03/2023 5:16 AM [facility] Hematocrit 28.7(L) 36.0 - 46.0 % 09/03/2023 5:16 AM [facility] MCV 77.6(L) 80.0 - 100.0 fL 09/03/2023 5:16 AM [facility] MCH 24.1(L) 26.0 - 34.0 pg 09/03/2023 5:16 AM [facility] MCHC 31.0 30.5 - 36.0 g/dL 09/03/2023 5:16 AM [facility] RDW-CV 14.6 11.5 - 15.0 % 09/03/2023 5:16 AM [facility] Platelet Count 334 150 - 400 k/uL 09/03/2023 5:16 AM [facility] MPV 10.8 9.0 - 12.7 fL 09/03/2023 5:16 AM [facility] Absolute nRBC <0.01 <0.01 k/uL 09/03/2023 5:16 AM [facility] Blood BLOOD SPECIMEN / Unknown Venipuncture / Unknown 09/03/2023 4:41 AM EST 09/03/2023 5:08 AM EST us Luis Barrow MD LABORATORY Final Result Performing Organization Address City/State/[facility] Co de Phone Number [facility] [address] * (ABNORMAL) HGB A1C (06/06/2023 1:29 PM EDT) [facility] Hemoglobin A1C 13.3(H) 4.3 - 5.6 % 06/07/2023 5:04 AM EDT [facility] Comment:Japanese Diabetes As sociation guidelines indicate that patients with HgbA1c in the range 5.7-6.4% are at increased risk for development of diabetes, and intervention by lifestyle modification may be beneficial. HgbA1c greater or equal to 6.5% is considered diagnostic of diabetes. Estimated Average Glucose 335 mg/dL 06/07/2023 5:04 AM EDT [facility] Comment:eAG: (Estimated aver age glucose) is a calculated value from HgbA1c and is patient access representative of the average blood glucose level in the last 2-3 month period. Blood BLOOD SPECIMEN / Unknown Venipuncture / Unknown 06/06/2023 1:29 PM EDT 06/06/2023 1:30 PM EDT us Jenny Batres BUS AND TROLLEY INSPECTING DISPATCHER.[facility] [facility] LAB[facility]AT[facility] Final Res ult [facility] [address] [facility] [address] [place] [address], [place] from Last 3 Months or Most Recently Relevant to Health Maintenance Insurance [employer] Care Teams Anthropology And Archeology Instructor Relationship Specialty Start Date End Date Latosha Olmstead [address] [place] [address] PCP - General 05/17/23 Lisa Porras MD [address] [place] [address] Referring Urology 05/11/23 Latosha Olmstead [address] [place] [address] Referring 01/04/24
--- OUTSIDE RECORDS SUMMARY | 2025-03-25 10:45 | XMS_ITS | Encounter Summary ---
Author Organization [facility] Address [address] [place] [address] Care Team Providers Care Equipment Services Associate Name Role Phone Latosha Olmstead NP Unavailable [phone] Kofi Gotti MD Primary Care Provider [phone] Ninfa Canela MA Unavailable [phone] Unallocated, Noms Provider Primary Care Provi emiliana Encounter Details Date Type Department Care Team (Late st Contact Info) Description 01/30/2025 Orders Only [facility] [address] [place] [address] Latosha Olmstead, HOSE TESTER [address] [place] [address] Social History Tobacco Use Types Packs/Day Years [...] How often do you attend chur or jehovah's witness services? Never 10/11/2023 Do you belong to any clubs o r organizations such as taoism groups, unions, fraternal or athletic groups, or [...] (01/30/2025 11:47 AM EDT) us Latosha Olmstead HOSE TESTER LAB CHG PERFORMABLES Final Resu lt documented in this encounter Visit Diagnoses Not on filedocumented in this encounter Additional Health Concerns Assessment Noted Time PHQ-9 Depression Total Score: 10 025 10:35 AM EDT documented as of this encounter Care Teams Equipment Services Associate Relationship Specialty Start Date End Date Kofi Gotti MD [address] [place] [address] PCP - General Family Medicine 06/20/24 02/02/25 Unallocated, Noms ProviderMD [address] [place] [address] PCP - General Family Medicine 02/03/25 Latosha Olmstead NP [address] [place] [address] Nurse Practitioner Family Medicine 06/11/24 02/02/25 Ninfa Canela, JOHNNY [address] [place] [address] Family Medicine 09/13/24 01/30/25 documented as of this encounter
--- OUTSIDE RECORDS SUMMARY | 2025-03-25 10:45 | XMS_ITS | Encounter Summary ---
Author Organization [facility] [email or web address] [facility] tem Address [id number] [address] [place] [address] Care Team Providers Care Pear Picker Name Role Phone Kapil Marr MD Primary Care Provider [phone] Reason for Visit * Reason Onset Date Comments Med Refill 04/09/2018 Encounter Details Date Type Department Care Team (Late Contact Info) Description 04/09/2018 Refill [facility] [address] [place] [address] Sumi Linton, RN Reflex sympathetic dystrophy of [...] Description 06/18/2025 12:15 PM EDT Office Visit [facility] [address] [place] [address] Gertrude Li PA-C [address] [place], [place] [address] documented as of this encounter Visit Diagnoses Diagnosis Reflex sympathetic dystrophy of right upper extremity documented in this encounter Additional Health Concerns Infection Onset Date Last Indicated Resolved Time COVID-19 Positive 09/28/2021 09/28/2021 10/19/2021 11:12 PM EST documented as of this encounter Care Teams Pear Picker Relationship Specialty Start Date End Date Kapil Marr MD [address] [place] [address] PCP - General Family Medicine 02/19/25 documented as of this encounter
--- OUTSIDE RECORDS SUMMARY | 2025-03-25 10:45 | XMS_ITS | Encounter Summary ---
Author Organization [facility] tem Address [id number] [address] [place] [address] Care Team Providers Care Vice President Lending Name Role Phone Kapil Marr MD Primary Care Provider [phone] Reason for Visit * Reason Onset Date Comments Med Refill 12/12/2017 Encounter Details Date Type Department Care Team (Late st Contact Info) Description 12/12/2017 Refill [facility] Pain Management [facility] [address] [place] [address] Barbara Lucero RN Reflex sympathetic dystrophy of [...] removal OARRS appropriate: Yes Last UDS: 03/23/17 [facility] patient Barbara Lucero RN 12/12/17 1448 documented in this encounter Plan of Treatment Upcoming Encounters Date Type Department Care Team (Late Contact Info) Description 06/18/2025 12:15 PM EDT Office Visit [facility] [address] [place] [address] Gertrude Li, PAJuan JoseC [address], 2nd [place] [address] documented as of this encounter Visit Diagnoses Diagnosis Reflex sympathetic dystrophy of right upper extremity documented in this encounter Additional Health Concerns Infection Onset Date Last Indicated Resolved Time COVID-19 Positive 09/28/2021 09/28/2021 10/19/2021 11:12 PM EST documented as of this encounter Care Teams Vice President Lending Relationship Specialty Start Date End Date Kapil Marr MD [address] [place] [address] PCP - General Family Medicine 02/19/25 documented as of this encounter
--- OUTSIDE RECORDS SUMMARY | 2025-03-25 10:45 | XMS_ITS | Encounter Summary ---
Author Organization [facility] Address [address] [place] [address] Care Team Providers Care Mower Operator Name Role Phone Lisa Porras MD Unavailable Latosha Olmstead Primary Care Provider Latosha Chanel Unavailable Unavailable Source Comments In the event this information is protected by the Federal Confidentiality of Alcohol and Drug AbusePatient Records regulations: The Federal rules restrict any use of the information to criminally investigate or prosecute any alcohol or drug abuse patient.[facility] Encounter Details Date Type Department Care Team (Late st Contact Info) Description 04/09/2024 Patient Msg Urology [address] [place], [place] [id number] Jennifer Nolen MD [address] [place] [address] Please complete your Pre-Check IN [...] is lower risk 8 05/17/2023 Data from: https://www.neighborhoodatlas.medicine.[facility].edu/. Last address used for calculation [address] [...] on filedocumented in this encounter Care Teams Mower Operator Relationship Specialty Start Date End Date Latosha Olmstead [address] [place] [address] PCP - General 05/17/23 Lisa Porras MD [address] [place] [address] Referring Urology 05/11/23 Latosha Olmstead [address] [place] [address] Referring 01/04/24 documented as of this encounter
--- OUTSIDE RECORDS SUMMARY | 2025-03-25 10:45 | XMS_ITS | Encounter Summary ---
Author Organization [facility] tem Address [id number] [address] [place] [address] Care Team Providers Care Sales Service Technician Name Role Phone Kapil Marr MD Primary Care Provider [phone] Reason for Visit * Reason Onset Date Comments Med Refill 06/05/2018 Encounter Details Date Type Department Care Team (Late st Contact Info) Description 06/05/2018 Refill [facility] - [facility] Management Clinic [address] [place] [address] Sumi Linton RN Reflex sympathetic [...] 3:07 PM EDT [facility] called to [facility] in [place], [place]. Radha Abrams RN 06/08/18 1344 documented in this encounter Plan of Treatment Upcoming Encounters Date Type Department Care Team ([facility] Contact Info) Description 06/18/2025 12:15 PM EDT Office Visit [facility] [address] [place] [address] Gertrude Li PA-C [address] [place] [address] documented as of this encounter Visit Diagnoses Diagnosis Reflex sympathetic dystrophy of right upper extremity documented in this encounter Additional Health Concerns Infection Onset Date Last Indicated Resolved Time COVID-19 Positive 09/28/2021 09/28/2021 10/19/2021 11:12 PM EST documented as of this encounter Care Teams Sales Service Technician Relationship Specialty Start Date End Date Kapil Marr MD [address] [place] [address] PCP - General Family Medicine 02/19/25 documented as of this encounter
--- OUTSIDE RECORDS SUMMARY | 2025-03-25 10:45 | XMS_ITS | Encounter Summary ---
Author Organization [facility] tem Address [id number] [address] [place] [address] Care Team Providers Care Manager Business Systems Name Role Phone Kapil Marr MD Primary Care Provider [phone] Encounter Details Date Type Department Care Team (Latest Contact Info) Description 03/12/2025 Travel Social History Tobacco Use Types Packs/Day Years [...] often do you attend chur ch or baptism services? Patient declined 08/13/2020 Do you belong [...] Description 06/18/2025 12:15 PM EDT Office Visit [facility] [address] [place] [address] Gertrude Li, PA-C [address] [facility], 2nd [place] [address] documented as of this encounter Visit Diagnoses Not on filedocumented in this encounter Care Teams Manager Business Systems Relationship Specialty Start Date End Date Kapil Marr MD [address] [place] [address] PCP - General Family Medicine 02/19/25 documented as of this encounter
--- OUTSIDE RECORDS SUMMARY | 2025-03-25 10:45 | XMS_ITS | Encounter Summary ---
Author Organization [facility] Address [address] [place] [address] Care Team Providers Care Steel Manager Name Role Phone Mariluz Mo MD Primary Care Provider [phone] Lisa Porras MD Unavailable Latosha Olmstead Primary Care Provider Unavailabl e Latosha Olmstead Unavailable Unavailable Source Comments In the event this information is protected by the Federal Confidentiality of Alcohol and Drug AbusePatient Records regulations: The Federal rules restrict any use of the information to criminally investigate or prosecute any alcohol or drug abuse patient.[facility] Encounter Details Date Type Department Care Team (Late st Contact Info) Description 2023 [place] [address] Provider, f Medicare Coverage of Physical Exams [...] N ot on file 12/26/2020 Data from: https://www.neighborhoodatlas.medicine.[facility].edu/. Last address used for calculation Not on [...] documented as of this encounter Care Teams Steel Manager Relationship Specialty Start Date End Date Mariluz Mo MD [address] [place] [address] PCP - General Family Medicine 01/29/21 05/16/[address] [place] [address] PCP - General 05/17/23 Lisa Porras MD [address] [facility] [address] [place] [address] Referring Urology 05/11/23 Latosha Olmstead [address] [facility] [address] [place] [address] Referring 01/04/24 documented as of this encounter
--- OUTSIDE RECORDS SUMMARY | 2025-03-25 10:45 | XMS_ITS | Encounter Summary ---
Author Organization [facility] tem Address [id number] [address] [place] [address] Care Team Providers Care Forensic Artist Name Role Phone Kapil Marr MD Primary Care Provider [phone] Reason for Visit * Reason Onset Date Comments Med Refill 03/12/2020 Encounter Details Date Type Department Care Team (Late Contact Info) Description 03/12/2020 Refill [facility] [address] [place] [address] Sumi Linton RN Complex regional pain syndrome type 1 [...] Description 06/18/2025 12:15 PM EDT Office Visit [facility] [address] [place] [address] Gertrude Li, PAJuan JoseC [address], [address]nd [place] [address] documented as of this encounter Visit Diagnoses Diagnosis Complex regional pain syndrome type 1 of right upper extremity documented in this encounter Additional Health Concerns Infection Onset Date Last Indicated Resolved Time COVID-19 Positive 09/28/2021 09/28/2021 10/19/2021 11:12 PM EST documented as of this encounter Care Teams Forensic Artist Relationship Specialty Start Date End Date Kapil Marr MD [address] [place] [address] PCP - General Family Medicine 02/19/25 documented as of this encounter
--- OUTSIDE RECORDS SUMMARY | 2025-03-25 10:45 | XMS_ITS | Encounter Summary ---
Author Organization [employer] Address [id number] [address] [place] [address] Care Team Providers Care Hauling Contractor Name Role Phone Kapil Marr MD Primary Care Provider [phone] Encounter Details Date Type Department Care Team (Late st Contact Info) Description 01/06/2021 Telephone [facility] [address] [place] [address] [place] [address] [place] [address] Linda Cardenas I, PA [address] [place] [address] Social History Tobacco Use Types Packs/Day Years [...] Upcoming Encounters Date Type Department Care Team ([facility] Contact Info) Description 06/18/2025 12:15 PM EDT Office Visit [facility] [place] [facility] [address] [place] [address] Gertrude Li PA-C [address] [place] [address] documented as of this encounter Visit Diagnoses Not on filedocumented in this encounter Additional Health Concerns Infection Onset Date Last Indicated Resolved Time COVID-19 Positive 09/28/2021 09/28/2021 10/19/2021 11:12 PM EST documented as of this encounter Care Teams Hauling Contractor Relationship Specialty Start Date End Date Kapil Marr MD [address] [facility] [place] [address] PCP - General Family Medicine 02/19/25 documented as of this encounter
--- OUTSIDE RECORDS SUMMARY | 2025-03-25 10:45 | XMS_ITS | Encounter Summary ---
Author Organization [facility] Address [address] [place] [address] Care Team Providers Care Burrer Hand Name Role Phone Kofi Gotti MD Primary Care Provider [phone] Unallocated, Noms Provider Primary Care Provi emiliana Latosha Olmstead CLIENT SOLUTIONS DIRECTOR Unavailable [phone] Kofi Gotti MD Primary Care Provider Ninfa Canela MA Unavailable [phone] Unallocated, Noms Provider Primary Care Provi emiliana Encounter Details Date Type Department Care Team (Late st Contact Info) Description 05/13/2024 Orders Only [facility] [address] [place] [address] Latosha Olmstead, CLIENT SOLUTIONS DIRECTOR [address] [place] [address] Social History Tobacco Use Types Packs/Day Years [...] often do you attend chur ch or anabaptism services? Never 10/11/2023 Do you [...] Recorded Patient Health Questionnaire-2 Score 2 01/17/2024 [facility] of Occupat ionks Health - Occupational Stress Questionnaire Answer Date [...] (05/13/2024 1:48 PM EDT) us Latosha Olmstead CLIENT SOLUTIONS DIRECTOR LAB CHG PERFORMABLES Final Resu lt documented in this encounter Visit Diagnoses Not on filedocumented in this encounter Additional Health Concerns Assessment Noted Time PHQ-9 Depression Total Score: 6 10/11/19 3:16 PM EST documented as of this encounter Care Teams Burrer Hand Relationship Specialty Start Date End Date Kofi Gotti MD [address] [place] [address] PCP - General Family Medicine 10/09/23 06/10/24 Unallocated, Jah Mirza MD [address] [place] [address] PCP - General Family Medicine 06/11/24 06/19/24 Kofi Gotti MD [address] [place] [address] PCP - General Family Medicine 06/20/24 02/02/25 Unallocated, Jah Mirza MD [address] [place] [address] PCP - General Family Medicine 02/03/25 Latosha Olmstead NP [address] [place] [address] Nurse Practitioner Family Medicine 06/11/24 02/02/25 Ninfa Canela, JOHNNY [address] [place] [address] Family Medicine 09/13/24 01/30/25 documented as of this encounter
--- OUTSIDE RECORDS SUMMARY | 2025-03-25 10:45 | XMS_ITS | Encounter Summary ---
Author Organization [facility] [facility] tem Address [id number] [address] [place] [address] Care Team Providers Care Craft Coordinator Name Role Phone Kapil Marr MD Primary Care Provider [phone] Reason for Visit * Reason Onset Date Comments Med Refill 08/09/2017 Encounter Details Date Type Department Care Team (Late st Contact Info) Description 08/09/2017 Refill [facility] [address] [place] [address] Barbara Lucero RN Reflex sympathetic [...] Description 06/18/2025 12:15 PM EDT Office Visit [facility] [address] [place] [address] Gertrude Li, PAJuan JoseC [address], [address] [place], [place] [address] documented as of this encounter Visit Diagnoses Diagnosis Reflex sympathetic dystrophy of right upper extremity- Primary documented in this encounter Additional Health Concerns Infection Onset Date Last Indicated Resolved Time COVID-19 Positive 09/28/2021 09/28/2021 10/19/2021 11:12 PM EST documented as of this encounter Care Teams Craft Coordinator Relationship Specialty Start Date End Date Kapil Marr MD [address] [place] [address] PCP - General Family Medicine 02/19/25 documented as of this encounter
--- OUTSIDE RECORDS SUMMARY | 2025-03-25 10:45 | XMS_ITS | Encounter Summary ---
Author Organization [facility] Address [address] [place] [address] Care Team Providers Care Top Frame Fitter Name Role Phone Kofi Gotti MD Primary Care Provider Unallocated, Noms Provider Primary Care Provi emiliana Latosha Olmstead SYSTEMS LEAD Unavailable [phone] Kofi Gotti MD Primary Care Provider [phone] Ninfa Canela MA Unavailable [phone] Unallocated, Noms Provider Primary Care Provi emiliana Encounter Details Date Type Department Care Team (Late st Contact Info) Description 04/29/2024 Orders Only [facility] [address] [place] [address] Latosha Olmstead, SYSTEMS LEAD [address] [place] [address] Social History Tobacco Use Types Packs/Day Years [...] often do you attend chur ch or episcopal services? Never 10/11/2023 Do you belong to [...] Recorded Patient Health Questionnaire-2 Score 2 01/17/2024 [facility] [place] of Occupat ionmo Health - Occupational Stress Questionnaire Answer Date [...] LABS (04/29/2024 10:21 AM EDT) Latosha Olmstead SYSTEMS LEAD LAB CHG PERFORMABLES Final Resu lt documented in this encounter Visit Diagnoses Not on filedocumented in this encounter Additional Health Concerns Assessment Noted Time PHQ-9 Depression Total Score: 6 10/11/19 24 3:16 PM EST documented as of this encounter Care Teams Top Frame Fitter Relationship Specialty Start Date End Date Kofi Gotti MD [address] [place] [address] PCP - General Family Medicine 10/09/23 06/10/24 Unallocated, Noms ProviderMD [address] [place] [address] PCP - General Family Medicine 06/11/24 06/19/24 Kofi Gotti MD [address] [place] [address] PCP - General Family Medicine 06/20/24 02/02/25 Unallocated, Noms ProviderMD [address] [place] [address] PCP - General Family Medicine 02/03/25 Latosha Olmstead NP [address] [place] [address] Nurse Practitioner Family Medicine 06/11/24 02/02/25 Ninfa Canela MA [address] [place] [address] Family Medicine 09/13/24 01/30/25 documented as of this encounter
--- OUTSIDE RECORDS SUMMARY | 2025-03-25 10:45 | XMS_ITS | Encounter Summary ---
Author Organization [facility] Address [address] [facility] [place] [address] Care Team Providers Care Mangle Roll Operator Name Role Phone Latosha Olmstead NP Unavailable [phone] Kofi Gotti MD Primary Care Provider Ninfa Canela MA Unavailable [phone] Unallocated, Noms Provider Primary Care Provi emiliana Encounter Details Date Type Department Care Team (Late st Contact Info) Description 08/15/2024 Orders Only [facility] [address] [place] [address] Latosha Olmstead, LUIS [address] [place] [address] Social History Tobacco Use Types Packs/Day Years [...] Recorded Patient Health Questionnaire-2 Score 2 01/17/2024 [facility] of Occupat ional Health - Occupational [...] documented as of this encounter Care Teams Mangle Roll Operator Relationship Specialty Start Date End Date Kofi Gotti MD [address] [place] [address] PCP - General Family Medicine 06/20/24 02/02/25 Unallocated, Noms ProviderMD [address] [place] [address] PCP - General Family Medicine 02/03/25 Latosha Olmstead NP [address] [place] [address] Nurse Practitioner Family Medicine 06/11/24 02/02/25 Ninfa Canela, JOHNNY [address] [place] [address] Family Medicine 09/13/24 01/30/25 documented as of this encounter
--- OUTSIDE RECORDS SUMMARY | 2025-03-25 10:45 | XMS_ITS | Encounter Summary ---
Author Organization [facility] tem Address [id number] [address] [place] [address] Care Team Providers Care Manager Apple Name Role Phone Kapil Marr MD Primary Care Provider [phone] Reason for Visit * Reason Onset Date Comments Hospitalization 06/16/2022 Encounter Details Date Type Department Care Team (Late st Contact Info) Description 06/16/2022 Telephone [facility] - Pain Management Clinic [address] [place] [address] Barbara Lucero RN Hospitalization Social [...] you attend chur ch or gnosticist services? Patient declined 08/13/2020 Do you belong [...] Recorded Do you need help finding a [facility] center and/or a training program? No 08/13/2020 [...] about a week and was transferred to [facility] today where she will be for [...] Description 06/18/2025 12:15 PM EDT Office Visit [facility] Management [facility] [address] [place] [address] Gertrude Li, PAJuan JoseC [address] [place], [place] [address] documented as of this encounter Visit Diagnoses Not on filedocumented in this encounter Care Teams Manager Apple Relationship Specialty Start Date End Date Kapil Marr MD [address] [place] [address] PCP - General Family Medicine 02/19/25 documented as of this encounter
--- OUTSIDE RECORDS SUMMARY | 2025-03-25 10:45 | XMS_ITS | Clinical Summary ---
Author Organization [facility] Address [address] [facility], [address] [place] [address] Care Team Providers Care Pipe Maker Name Role Phone Unavailable Primary Care Provider [...]
--- OUTSIDE RECORDS SUMMARY | 2025-03-25 10:45 | XMS_ITS | Encounter Summary ---
Author Organization [facility] Address [address] [place] [address] Care Team Providers Care Mortar Worker Name Role Phone Kofi Gotti MD Primary Care Provider Unallocated, Noms Provider Primary Care Provi emiliana Latosha Olmstead NP Unavailable [phone] Kofi Gotti MD Primary Care Provider Ninfa Canela MA Unavailable [phone] Unallocated, Noms Provider Primary Care Provi emiliana Encounter Details Date Type Department Care Team (Late st Contact Info) Description 04/18/2024 Clinisync Result Encounter [facility] External Department Unsolicited Latosha Olmstead, TRANSCRIPTION [address] [place] [address] Social History Tobacco Use Types Packs/Day Years [...] Recorded Patient Health Questionnaire-2 Score 2 01/17/2024 [facility] of Occupat ional Health - [...] EDT Narrative 04/18/2024 7:08 AM EDT The [address] [address] XRay Report Signed Patient: AISLINN CARNES MR#: [id number] : 1960 Acct:[id number] Age/Sex: 63 / F ADM Date: 04/17/24 Loc: MAMMO Attending Dr: Latosha Olmstead NP Ordering Physician: Latosha Olmstead NP Date of Service: 04/17/24 Procedure(s): XR chest 2V Accession Number(s): [id number] cc: Latosha Olmstead NP The [address] [address] Patient Name: AISLINN CARNES MRN: [facility]:[id number] date: 1960 Sex: F Assigned Patient Location: MAMMO Current Patient Location: Accession/Order Number: [id number] Exam Date: 04/17/2024 10:34 Report Date: 04/18/2024 [...] M.D. Signed By: 04/18/2408 DD/ 5 TD/TT: Grout Worker: Procedure Note Radiology, Radiologist, MD - 04/18/2024 The [place] [id number] XRay Report Signed Patient: AISLINN CARNES MMR#: [id number] : 1960cct:[id number] Age/Sex: 63 / FADM Date: 04/17/24 Loc: MAMMO Attending Dr: Latosha Olmstead NP Ordering Physician: Latosha Olmstead NP Date of Service: 04/17/24 Procedure(s): XR chest 2V Accession Number(s): [id number] cc: Latosha Olmstead NP The [address] [id number] Patient Name: AISLINN CARNES MRN: [id number] date: 1960 Sex: F Assigned Patient Location: MAMMO Current Patient Location: Accession/Order Number: [id number] Exam Date: 04/17/2024 10:34 Report Date: 04/18/2024 [...] M.D. Signed By:04/18/24 0708 DD/ 0706 TD/TT: Grout Worker: us Latosha Olmstead [facility] Final Result documented in this encounter Visit Diagnoses Not on filedocumented in this encounter Additional Health Concerns Assessment Noted Time PHQ-9 Depression Total Score: 6 10/11/19 24 3:16 PM EST documented as of this encounter Care Teams Mortar Worker Relationship Specialty Start Date End Date Kofi Gotti MD [address] [place] [address] PCP - General Family Medicine 10/09/23 06/10/24 Unallocated, Noms MD [address] [address] PCP - General Family Medicine 06/11/24 06/19/24 Kofi Gotti MD [address] [place] [address] PCP - General Family Medicine 06/20/24 02/02/25 Unallocated, Noms MD Yuki [address] [place] [address] PCP - General Family Medicine 02/03/25 Latosha Olmstead NP [address] [place] [address] Nurse Practitioner Family Medicine 06/11/24 02/02/25 Ninfa Canela, JOHNNY [address] [place] [address] Family Medicine 09/13/24 01/30/25 documented as of this encounter
--- OUTSIDE RECORDS SUMMARY | 2025-03-25 10:45 | XMS_ITS | Encounter Summary ---
Author Organization [employer] Address [id number] [address] [place] [address] Care Team Providers Care Scrap Hoist Operator Name Role Phone Kapil Marr MD Primary Care Provider [phone] Encounter Details Date Type Department Care Team (Late st Contact Info) Description 03/09/2021 Abstract Tena Villafana [facility] - Medical Oncology [address] [place] [address] Aj Magdaleno MD [facility] [address] [place] [address] Social History Tobacco Use Types Packs/Day Years [...] you attend chur ch or shinto services? Patient declined 08/13/2020 Do you belong [...] Recorded Do you need help finding a [place] 24h00 center and/or a training program? No 08/13/2020 [...] Description 06/18/2025 12:15 PM EDT Office Visit [facility] [address] [place] [address] Gertrude Li, PAJuan JoseC [address], [address] [place] [address] documented as of this encounter Visit Diagnoses Not on filedocumented in this encounter Additional Health Concerns Infection Onset Date Last Indicated Resolved Time COVID-19 Positive 09/28/2021 09/28/2021 10/19/2021 11:12 PM EST documented as of this encounter Care Teams Scrap Hoist Operator Relationship Specialty Start Date End Date Kapil Marr MD [address] [place] [address] PCP - General Family Medicine 02/19/25 documented as of this encounter
--- OUTSIDE RECORDS SUMMARY | 2025-03-25 10:46 | XMS_ITS | Encounter Summary ---
Author Organization [facility] Address [address] [place] [address] Care Team Providers Care Creosoting Engineer Name Role Phone Latosha Olmstead NP Unavailable [phone] Kofi Gotti MD Primary Care Provider [phone] Ninfa Canela MA Unavailable [phone] Unallocated, Noms Provider Primary Care Provi emiliana Encounter Details Date Type Department Care Team (Late st Contact Info) Description 11/25/2024 Orders Only [facility] [address] [place] [address] [place] [address] [place] [address] Social History Tobacco Use Types [...] How often do you attend chur or holiness services? Never 10/11/2023 Do you [...] Recorded Patient Health Questionnaire-2 Score 2 11/18/2024 [facility] Occupat ionme Health - Occupational Stress [...] documented as of this encounter Care Teams Creosoting Engineer Relationship Specialty Start Date End Date Kofi Gotti MD [address] [place] [address] PCP - General Family Medicine 06/20/24 02/02/25 Unallocated, Noms Yuki, [address] [place] [address] PCP - General Family Medicine 02/03/25 Latosha Olmstead NP [address] [place] [address] Nurse Practitioner Family Medicine 06/11/24 02/02/25 Ninfa Canela, JOHNNY [address] [place] [address] Family Medicine 09/13/24 01/30/25 documented as of this encounter
--- OUTSIDE RECORDS SUMMARY | 2025-03-25 10:46 | XMS_ITS | Encounter Summary ---
Author Organization [facility] Address [address] [place] [address] Care Team Providers Care Mergers And Acquisitions Associate Name Role Phone Latosha Olmsteda NP Unavailable [phone] Kofi Gotti MD Primary Care Provider Mel Canela MA Unavailable [phone] Unallocated, Noms Provider Primary Care Provi emiliana Reason for Visit * Reason Comments Med Refill Encounter Details Date Type Department Care Team (Late st Contact Info) Description 10/15/2024 Refill [facility] [address] [place] [address] Latosha Olmstead, RENTAL COUNTER CLERK [address] [place] [address] Type 2 diabetes mellitus with diabetic neuropathy, with long-term current use of insulin ([facility]); Type 2 diabetes mellitus with hyperglycemia, with long-term current use of insulin (HCC); halfway (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 ([facility]) Social History Tobacco Use Types Packs/Day Years [...] How often do you attend chur or pentecostal services? Never 10/11/2023 Do you belong to any clubs o r organizations such as denominational groups, unions, fraternal or athletic groups, or [...] Recorded Patient Health Questionnaire-2 Score 2 01/17/2024 [facility] of Occupat ional Health - Occupational Stress [...] with long-term current use of insulin (HCC) green building architect (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 (HCC) documented in this encounter Additional Health Concerns Assessment Noted Time PHQ-9 Depression Total Score: 6 10/11/19 24 3:16 PM EST documented as of this encounter Care Teams Mergers And Acquisitions Associate Relationship Specialty Start Date End Date Kofi Gotti MD [address] [place] [address] PCP - General Family Medicine 06/20/24 02/02/25 Unallocated, Jah Mirza MD [address] [place] [address] PCP - General Family Medicine 02/03/25 Latosha Olmstead NP [address] [place] [address] Nurse Practitioner Family Medicine 06/11/24 02/02/25 Mel Canela MA [address] [place] [address] Family Medicine 09/13/24 01/30/25 documented as of this encounter
--- OUTSIDE RECORDS SUMMARY | 2025-03-25 10:46 | XMS_ITS | Encounter Summary ---
Author Organization [facility] Address [address] [place] [address] Care Team Providers Care Rock Mason Name Role Phone Latosha Olmstead NP Unavailable [phone] Kofi Gotti MD Primary Care Provider [phone] Ninfa Canela MA Unavailable [phone] Unallocated, Noms Provider Primary Care Provi emiliana Reason for Visit * Reason Comments Med Change Request Encounter Details Date Type Department Care Team (Late st Contact Info) Description 09/11/2024 Refill [facility] [address] [place] [address] Latosha Olmstead, COUNTERSINKER [address] [place] [address] Type 2 diabetes mellitus with diabetic neuropathy, [...] often do you attend chur ch or hindu services? Never 10/11/2023 Do you belong to [...] Recorded Patient Health Questionnaire-2 Score 2 01/17/2024 [facility] of Occupat ional Health - Occupational Stress [...] documented as of this encounter Care Teams Rock Mason Relationship Specialty Start Date End Date Kofi Gotti MD [address] [place] [address] PCP - General Family Medicine 06/20/24 02/02/25 Unallocated, Noms Provider, [address] [place] [address] PCP - General Family Medicine 02/03/25 Latosha Olmstead NP [address] [place] [address] Nurse Practitioner Family Medicine 06/11/24 02/02/25 Ninfa Canela, JOHNNY [address] [place] [address] Family Medicine 09/13/24 01/30/25 documented as of this encounter
--- OUTSIDE RECORDS SUMMARY | 2025-03-25 10:46 | XMS_ITS | Encounter Summary ---
Author Organization [employer] Address [id number] [address] [place] [address] Care Team Providers Care Hairpiece Stylist Name Role Phone Kapil Marr MD Primary Care Provider [phone] Encounter Details Date Type Department Care Team (Late st Contact Info) Description 01/01/2024 Orders Only [facility] [address] [address] Ref Prov, [place] [address] Social History Tobacco Use Types Packs/Day Years [...] Recorded Do you need help finding a [facility] career center and/or a training program? [...] Description 06/18/2025 12:15 PM EDT Office Visit [facility] [address] [place] [address] Gertrude Li, PROMISE [address] [place], [place] [address] documented as of this encounter Procedures Procedure [...] on filedocumented in this encounter Care Teams Hairpiece Stylist Relationship Specialty Start Date End Date Kapil Marr MD [address] [facility], [place] [address] PCP - General Family Medicine 02/19/25 documented as of this encounter
--- OUTSIDE RECORDS SUMMARY | 2025-03-25 10:46 | XMS_ITS | Encounter Summary ---
Author Organization [facility] Address [address] [place] [address] Care Team Providers Care Statistical Engineer Name Role Phone Latosha Olmstead NP Unavailable [phone] Kofi Gotti MD Primary Care Provider [phone] Ninfa Canela MA Unavailable [phone] Unallocated, Noms Provider Primary Care Provi emiliana Encounter Details Date Type Department Care Team (Late st Contact Info) Description 11/24/2024 External Result Encounter [facility] External Department Unsolicited Cory Angeles, DPM [address] [address] Social History Tobacco Use Types [...] Recorded Patient Health Questionnaire-2 Score 2 11/18/2024 [facility] Questionnaire Answer Date [...] slept in a group home (including now)? No 10/11/2023 Comments Unknown [...] Raf Potter M.D.11/24/2024 2:48 PM Dictation Location: [facility] Transcribed By: [facility] 11/24/24 1448 Dictated By: Raf Potter MD 11/24/24 1446 Signed By: <Electronically signed by Raf Potter MD in [place]> 11/24/24 1448 Narrative 11/24/2024 2:50 PM EDT [address] [address] XRay Report Signed Patient: Renate Wheeler MR#: [id number] [birth year] : 1960 Acct:[id number] Age/Sex: 64 / F ADM Date: 11/23/24 Loc: Room: [address] [place] [address] Type: ADM IN Attending Dr: Diane Smith [...] Procedure Note Radiology, Radiologist, MD - 11/24/2024 [place] [id number] XRay Report Signed Patient: Renate Wheeler MMR#: [id number] 01 : 8Acct:[id number] Age/Sex: 64 / FADM Date: 11/23/24 Loc: Room: [id number]: ADM IN Attending Dr: Diane Smith MD [...] Raf Potter M.D.11/24/2024 2:48 PM Dictation Location: [place] [address] Transcribed By: [facility] 11/24/24 1448 Dictated By: Raf Potter [...] as of this encounter Care Teams Statistical Engineer Relationship Specialty Start Date End Date Kofi Gotti MD [address] [place] [address] PCP - General Family Medicine 06/20/24 02/02/25 Unallocated, Noms Provider, MD Raman [address] [facility] [place] [address] PCP - General Family Medicine 02/03/25 Latosha Olmstead NP [address] [place] [address] Nurse Practitioner Family Medicine 06/11/24 02/02/25 Ninfa Canela MA [address] [place] [address] Family Medicine 09/13/24 01/30/25 documented as of this encounter
--- OUTSIDE RECORDS SUMMARY | 2025-03-25 10:46 | XMS_ITS | Encounter Summary ---
Author Organization [facility] Address [address] [place] [address] Care Team Providers Care Plant Floor Automation Manager Name Role Phone Lisa Porras MD Unavailable [...] Contact Info) Description 02/12/2024 Patient Msg Urology [address] [place] [address] Manolo Ballard MD [address] [place] [address] CT scan Social History Tobacco [...] slept in a senior care (including now)? Patient refused 08/31/2023 Housing Stability [...] is lower risk 8 05/17/2023 Data from: https://www.neighborhoodatlas.medicine.[facility].edu/. Last address used for calculation [address] [...] of Assessment Author No 06/23/2023 6:06 PM Reyse William RN * Do you have serious [...] on filedocumented in this encounter Care Teams Plant Floor Automation Manager Relationship Specialty Start Date End Date Latosha Olmstead [address] [place] [address] PCP - General 05/17/23 Lisa Porras MD [address] [place] [address] Referring Urology 05/11/23 Latosha Olmstead [address] [place] [address] Referring 01/04/24 documented as of this encounter
--- OUTSIDE RECORDS SUMMARY | 2025-03-25 10:46 | XMS_ITS | Encounter Summary ---
Author Organization [facility] Address [address] [place] [address] Care Team Providers Care Film Replacement Orderer Name Role Phone Latosha Olmstead NP Unavailable [phone] Kofi Gotti MD Primary Care Provider [phone] Ninfa Canela MA Unavailable [phone] Unallocated, Noms Provider Primary Care Provi emiliana Encounter Details Date Type Department Care Team (Late st Contact Info) Description 11/24/2024 Abstract [facility] [address] [place] [address] Cory Angeles DPM [address] [address] Social History Tobacco Use Types [...] How often do you attend chur or mosque services? Never 10/11/2023 Do you belong to [...] Recorded Patient Health Questionnaire-2 Score 2 11/18/2024 [facility] of Occupat ionoh Health - Occupational Stress Questionnaire Answer Date [...] place to sleep or slept in a care home (including now)? No 10/11/2023 Comments Unknown [...] documented as of this encounter Care Teams Film Replacement Orderer Relationship Specialty Start Date End Date Kofi Gotti MD [address] [place] [address] PCP - General Family Medicine 06/20/24 02/02/25 Unallocated, Noms Yuki, [address] [facility] [place] [address] PCP - General Family Medicine 02/03/25 Latosha Olmstead NP [address] [place] [address] Nurse Practitioner Family Medicine 06/11/24 02/02/25 Ninfa Canela MA [address] [place] [address] Family Medicine 09/13/24 01/30/25 documented as of this encounter
--- OUTSIDE RECORDS SUMMARY | 2025-03-25 10:46 | XMS_ITS | Encounter Summary ---
Author Organization [employer] Address [id number] [address] [place] [address] Care Team Providers Care Transportation Maintenance Worker Name Role Phone Kapil Marr MD Primary Care Provider [phone] Encounter Details Date Type Department Care Team (Late st Contact Info) Description 08/28/2024 Orders Only [facility] Cardiology [address] [place] [address] External, Scanning Provider Social History [...] Recorded Do you need help finding a [facility] career center and/or a training [...] Description 06/18/2025 12:15 PM EDT Office Visit [facility] [address] [place] [address] Gertrude Li PA-C [address] [place], [place] [address] documented as of this encounter Procedures Procedure [...] ECG ORDERABLES Final Result Performing Organization Address [facility] Co de Phone Number MANUALLY TRANSCRIBED RESULTS * Multiple labs (08/08/2024 2:40 PM EST) us Scanning Provider External [facility] [facility] Final Result Performing Organization Address [facility] Co de Phone Number MANUALLY TRANSCRIBED [...] Edited Result - Final Performing Organization Address [facility] de Phone Number MANUALLY TRANSCRIBED RESULTS * [...] ECG ORDERABLES Final Result Performing Organization Address [facility] Co de Phone Number MANUALLY TRANSCRIBED RESULTS documented in this encounter Visit Diagnoses Not on filedocumented in this encounter Care Teams Transportation Maintenance Worker Relationship Specialty Start Date End Date Kapil Marr MD [address] [facility], [place] [address] PCP - General Family Medicine 02/19/25 documented as of this encounter
--- OUTSIDE RECORDS SUMMARY | 2025-03-25 10:46 | XMS_ITS | Encounter Summary ---
Author Organization [facility] Address [address] [place] [address] Care Team Providers Care Building Maintenance Technician Name Role Phone Latosha Olmstead NP Unavailable [phone] Kofi Gotti MD Primary Care Provider [phone] Ninfa Canela MA Unavailable [phone] Unallocated, Noms Provider Primary Care Provi emiliana Encounter Details Date Type Department Care Team (Late st Contact Info) Description 11/07/2024 Orders Only [facility] [address] [place] [address] Latosha Olmstead, HEAVY EQUIPMENT MECHANIC [address] [place] [address] Social History Tobacco Use Types Packs/Day Years [...] How often do you attend chur or caodaism services? Never 10/11/2023 Do you [...] Recorded Patient Health Questionnaire-2 Score 0 10/24/2024 [facility] Occupat ional Health - [...] place to sleep or slept in a jail (including now)? No 10/11/2023 Comments Unknown Sex [...] documented as of this encounter Care Teams Building Maintenance Technician Relationship Specialty Start Date End Date Kofi Gotti MD [address] [place] [address] PCP - General Family Medicine 06/20/24 02/02/25 Unallocated, Heraclios MD Yuki [address] [facility] [facility] [place] [address] PCP - General Family Medicine 02/03/25 Latosha Olmstead NP [address] [place] [address] Nurse Practitioner Family Medicine 06/11/24 02/02/25 Ninfa Canela, JOHNNY [address] [place] [address] Family Medicine 09/13/24 01/30/25 documented as of this encounter
--- OUTSIDE RECORDS SUMMARY | 2025-03-25 10:46 | XMS_ITS | Clinical Summary ---
Author Organization [employer] tem Address [id number] [address] [place] [address] Care Team Providers Care Plant Custodian Name Role Phone Kapil Marr MD Primary Care Provider [phone] Allergies Active Allergy Reactions Criticality Noted Date [...] daily 120 g 2 08/22/19 19 Active Additional Information Patient not taking.Informant: Self, Reported on 03/12/2025 insulin glargine (LANTUS SOLOSTAR U-100 INSULIN) 100 [...] for pain. 90 tablet 02/25/20 25 Active amLODIPine (NORVASC) 10 mg tablet Take 1 tablet (10 mg total) by mouth in the morning. 11/19/19 25 Active atorvastatin (LIPITOR) 20 mg tablet Take 1 tablet (20 mg total) by mouth once daily at bedtime. TAKE 1 TABLET (20 MG) BY MOUTH AT BEDTIME 01/28/20 25 025 Active fluticasone propionate (FLONASE) 50 mcg/actuation nasal spray 2 sprays as needed for allergies. 06/24/20 24 Active pregabalin (LYRICA) 150 mg capsuleIndicati ons:Complex regional pain syndrome type 1 of right upper extremity Take 1 capsule (150 mg total) by mouth in the morning and 1 capsule (150 mg total) at noon and 1 capsule (150 mg total) in the evening. 90 capsule 1 03/26/20 25 Active HYDROcodone-lorie taminophen (NORCO) 7.5-325 mg per tabletIndicatio ns:Reflex sympathetic dystrophy of right upper extremity Take 1 tablet by mouth 3 (three) times a day as needed for pain. 90 tablet 03/26/20 25 Active HYDROcodone-lorie taminophen (NORCO) 7.5-325 mg per tabletIndicatio ns:Reflex sympathetic dystrophy of right upper extremity Take 1 tablet by mouth 3 (three) times a day as needed for pain. 90 tablet 11/25/19 25 025 Discontin ued(Reord er) pregabalin (LYRICA) 150 mg capsuleIndicati ons:Complex regional pain syndrome type 1 of right upper extremity Take 1 capsule (150 mg total) by mouth in the morning and 1 capsule (150 mg total) at noon and 1 capsule (150 mg total) in the evening. 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 No evidence of enhancement. Stable on followup ultrasound Encounters Date Type Department Care Team Description 03/19/2025 Refill [facility] [address] [place] [address] Virginia Pierce RN 03/13/2025 Refill [facility] [address] [place] [address] Latosha Gray CNA Complex regional pain syndrome type 1 of right upper extremity; Reflex sympathetic dystrophy of right upper extremity 03/12/2025 1:00 PM EDT Office Visit [facility] [address] [place] [address] Gertrude Li, PAJuan JoseC Complex regional pain syndrome type 1 of right upper extremity (Primary Dx) 03/12/2025 Travel 03/03/2025 Telephone [facility] [address] [place] [address] Gertrude Li PA-C 02/28/2025 2:22 PM EDT - 02/28/2025 2:29 PM EDT Surgery [facility] - Pain Procedures [address] [place] [address] Joe Pedro MD INJECTION BLOCK NERVE STELLATE GANGLION NECK [89957 (CPT )] 02/28/2025 2:09 PM EDT Anesthesia Event [facility] - Pain Procedures [address] [place] [phone] Emigdio Rodas, [place]u De La Cruz, BUSINESS ASSOCIATE-THERMAL MOLDER 02/28/2025 1:23 PM EDT - 02/28/2025 11:59 PM EDT Hospital Encounter [facility] - Pain Procedures [address] [place] [phone] Jeo Pedro MD Discharge Disposition: Home 02/28/2025 8:35 AM EDT - 02/28/2025 1:22 PM EDT Hospital Encounter [facility] - Radiology [address] [place] [phone] Joe Pedro MD Reflex sympathetic dystrophy of right upper extremity Discharge Disposition: Home 02/28/2025 Orders Only [facility] [address] [place] [address] Barbara Lucero, REY Reflex sympathetic dystrophy of right upper extremity (Primary Dx); Encounter for long-term use of opiate analgesic 02/11/2025 Refill [facility] [address] [place] [phone] Latosha Gray CNA Reflex sympathetic dystrophy of right upper extremity 02/06/2025 Telephone [facility] [address] [place] [phone] Asia Barreto, REY 01/15/2025 Refill [facility] [address] [facility] [place] [address] Asia Barreto, RN Reflex sympathetic dystrophy of right upper extremity; Complex regional pain syndrome type 1 of right upper extremity 01/08/2025 12:15 PM EDT Office Visit [facility] [address] [facility] [place] [address] Gertrude Li PA-C Reflex sympathetic dystrophy of right upper extremity (Primary Dx) 01/08/2025 Travel from Last 3 Months Immunizations No known [...] often do you attend chur ch or anglican services? Patient declined 08/13/2020 Do you belong [...] Recorded Do you need help finding a [facility] career center and/or a training program? No [...] Pulse 71 03/12/2025 1:05 PM EDT Temperature 36.6 C (97.8 F) 02/28/2025 1:38 PM EDT Respiratory Rate 16 02/28/2025 2:22 PM EDT Oxygen Saturation 96% 03/12/2025 1:05 PM EDT Inhaled Oxygen Concentration - - Weight 58.1 kg (128 lb) 03/12/2025 1:05 PM EDT Height 152.4 cm (5') 03/12/2025 1:05 PM EDT Body Mass Index 25 03/12/2025 1:05 PM EDT Plan of Treatment Upcoming Encounters Date Type Department Care Team (Late st Contact Info) Description 06/18/2025 12:15 PM EDT Office Visit [facility] Management [facility] [address] [place] [address] Gertrude Li, PAJuan JoseC [address] [place], [place] [phone] Health Maintenance Due Date Last Done Comments Depression Screening 1970 DTaP,Tdap and Td Vaccines (1 - Tdap) 1977 Zoster (Shingles) Vaccine (1 of 2) 2008 Fall Risk Screening 2023 COVID-19 Vaccine (4 - 2023-2 5 season) 2024 04/02/2021, 03/02/2021, 12/07/2020 Influenza Vaccine 04/21/2025 06/03/2016 Adult BMI Screening 03/12/2026 03/12/2025 Tobacco Screening 03/12/2026 03/12/2025 Medical Devices Implanted Type Area Lead Blender Device Identifier Shelf Expiration Date Model / Serial / Lot Cervical Fusion Hardware Left Ankle Orif Explanted Type Area Lead Blender Device Identifier Shelf Expiration Date Model / Serial / Lot Scs Procedures Procedure Name Priority Date/Time Associated Diagnosis Comments GLENFORD GENERIC ORDER Routine 03/12/2025 1: 43 PM [...] syndrome type 1 of right upper extremity FL FLUOROSCOPY UP TO 1 HOUR Routine 02/28/2025 2:15 PM EDT Reflex sympathetic dystrophy of right upper extremity ID INJECT NERV BLCK,STELLATE GANGLION 02/28/2025 2:08 PM EDT Reflex sympathetic dystrophy of right upper extremity Special Needs Diabetic Latex allergy NEEDS UDS BEDSIDE GLUCOSE Routine 02/28/2025 1:27 PM EDT from Last 3 Months Results * GLENFORD GENERIC ORDER (03/12/2025 1:43 PM EDT) TEST RESULT SEE COMMENTS 03/17/2025 3:33 PM EDT [facility] Comment: Test Result Flag Unit RefValue Pregabalin, urine SEE COMMENTS Test Result Flag Units Reference Range Pregabalin, UR Pregabalin 26.2 ug/mL This test was developed and its performance characteristics determined by [email or web address]. It has not been cleared or approved by the Food and Drug Administration. Test Performed by: [facility]. [address] [place], [place] [id number] Urine Urine / Unknown 03/12/2025 1 :43 PM EDT 03/12/2025 1:43 PM EDT Gertrude Li PA-C LAB BLOOD ORDERABLES Final Result Performing Organization Address [facility] Co de Phone Number [facility] [employer] [address] [place] [address], [place] * Gabapentin, Urine (03/12/2025 1:43 PM EDT) GABAPENTIN,URI NE Negative ug/mL 03/14/2025 8:27 PM EDT [facility] Comment: Test Performed by: [facility]. [address] [place], [place] [id number] Urine Urine specimen collection, clean catch / Unknown 03/12/2025 1:43 PM EDT 03/12/2025 1:43 PM EDT Gertrude N [employer] VIRGEN URINE ORDERABLES Final Resu lt Performing Organization Address [facility] Co de Phone Number [facility] [address] [place] [address], [place] * (ABNORMAL) Controlled Substance Monitoring, U (03/12/2025 1:43 PM EDT) Control Substance Panel, Urine SEE COMMENTS (A) 03/15/2025 8:01 AM EDT [facility] Comment: Test Result Flag Unit RefValue Controlled Substance Monitoring, U List Patient's Current HYDROCODONE Medications ADDITIONAL INFORMATION Accuracy and completeness of declared medications on reports solely dependent on information submitted by client. Creatinine, U 58.1 mg/dL Specific [place] 1.012 pH 5.6 Oxidants Negative Cutoff: 200 [...] Not Detected ng/mL Cutoff: 25 Tylenol 3 Nucslzl-7-gpmv- Not Detected ng/mL Cutoff: 100 glucuronide Metabolite of codeine Morphine Not Detected ng/mL Cutoff: 25 Marium Leon, MS Contin; Also a minor metabolite (10%) of codeine and can be seen in low concentrations (<2,000 ng/mL) with poppy seed ingestion. Xwffasld-1-cjal- Not Detected ng/mL Cutoff: 100 glucuronide Metabolite of morphine 6-monoacetylmorphine Not Detected ng/mL Cutoff: 25 Metabolite of heroin Hydrocodone Present A ng/mL Cutoff: 25 Lortab, [place], Vicodin; Also a very minor metabolite of codeine and impurity (<1%) of oxycodone. Norhydrocodone Present A ng/mL Cutoff: 25 Metabolite of hydrocodone Dihydrocodeine Present A ng/mL Cutoff: 25 Metabolite of hydrocodone Hydromorphone Not Detected ng/mL Cutoff: 25 Dilaudid, Exalgo; Also a metabolite of hydrocodone and a minor (<5%) metabolite of morphine. Oygwuucplkncb-0-bdpz- Not Detected ng/mL Cutoff: 100 glucuronide Metabolite of hydromorphone Oxycodone Not Detected ng/mL Cutoff: 25 Endocet, Percocet, Oxycontin Noroxycodone Not Detected ng/mL Cutoff: 25 Metabolite of oxycodone Oxymorphone Not Detected ng/mL Cutoff: 25 Numorphan, Opana; Also a metabolite of oxycodone. Bpkwqwmcmek-6-ejvg- Not Detected ng/mL Cutoff: 100 glucuronide Metabolite [...] Naloxone Not Detected ng/mL Cutoff: 25 Narcan Vbbrtvwi-4-xxea- Not Detected ng/mL Cutoff: 100 glucuronide Metabolite [...] developed and its performance characteristics determined by [facility] in a manner consistent with CLIA [...] developed and its performance characteristics determined by [facility] in a manner consistent with CLIA requirements. This test has not been cleared or approved by the U.S. Food and Drug Administration. Methamphetamine Not Detected ng/mL Cutoff: 100 Desoxyn Amphetamine Not Detected ng/mL Cutoff: 100 Dyanavel XR, Adzenys ER, Adderall, Vyvanse; Also a metabolite of methamphetamine 3,4- Not Detected ng/mL Cutoff: 100 methylenedioxymethamphetamine (MDMA) 3,3-wzlvbnkyxqioxr-I- Not Detected ng/mL Cutoff: 100 ethylamphetamine (MDEA) [...] developed and its performance characteristics determined by [facility] in a manner consistent with CLIA requirements. This test has not been cleared or approved by the U.S. Food and Drug Administration. Test Performed by: [facility] [address] [place] [address] [employer] Associate: Norbert Macario Ph.D.; CLIA# [id number] Urine / Unknown 03/12/2025 1 :43 PM EDT 03/12/2025 1:43 PM EDT us Gertrude ARCHER-Esteban URINE ORDERABLES Final Resu lt Performing Organization Address City/[facility]/ZIP Co de Phone Number [facility] [address] [place] [address], [place] * Pregabalin, Urine (03/12/2025 1:43 PM EDT) LOOK Sent to [facility]. 03/12/2025 6:45 PM EDT [facility] Urine Urine / Unknown 03/12/2025 1 :43 PM EDT 03/12/2025 1:43 PM EDT Gertrude ARCHER-C LAB BLOOD ORDERABLES Final Result [facility] [address] [place] [address], [place] [phone] * Fluoroscopy less than one hour (02/28/2025 2:15 PM EDT) Narrative SYSTEMGENERATED, DOCUMENTATION - 02/28/2025 2:15 PM EDT No Reading Required. This procedure does not require a formal dictation. Non-Radiologist provider performed procedures can be reviewed under Post-Op, Procedure or Progress notes. For full report details, please reach out to your physician. Effective 01/05/2021 this image will be visible to you in MyChart. us Joe Pedro MD IMG FLUOROSCOPY ORDERABLES Fi nal Result * (ABNORMAL) Bedside Glucose *Place/Obtain serum glucose if >500 per glucometer. (02/28/2025 1:27 PM EDT) Bedside Glucose (POC) 103(H) 65 - 99 mg/dL 02/28/2025 1:32 PM EDT [facility] arterial/capilla ry 02/28/2025 1:27 PM EDT 02/28/2025 1:32 PM EDT Joe Pedro MD POINT OF CARE TEST ORDERABLES Final Result Performing Organization Address City/State/[facility] Co de Phone Number [facility] [address] [place] [address], from Last 3 Months Insurance [employer] MEDICARE [facility] Care Teams Plant Custodian Relationship Specialty Start Date End Date Kapil Marr MD [address] [facility], [place] [address] PCP - General Family Medicine 02/19/25
--- OUTSIDE RECORDS SUMMARY | 2025-03-25 10:46 | XMS_ITS | Encounter Summary ---
Author Organization [facility] [employer] [facility] tem Address [id number] [address] [place] [address] Care Team Providers Care Geriatric Nurse Practitioner Name Role Phone Kapil Marr MD Primary Care Provider [phone] Encounter Details Date Type Department Care Team (Late st Contact Info) Description 03/03/2025 Telephone [facility] [address] [place] [phone] Gertrude Li, PAJaya [address] [place], [place] [phone] Social History Tobacco Use Types Packs/Day Years [...] you attend chur ch or caodaism services? Patient declined 08/13/2020 Do you belong [...] Recorded Do you need help finding a [employer] [facility] career center and/or a training program? [...] encounter Miscellaneous Notes * Telephone Encounter - Vannessa Porter - 03/03/2025 8:12 AM EDT Per the lab Ren[facility]'s urine collection did not have 2 patient identifiers listed on the specimen so they were not able to run the labs. We will need to recollect. * Telephone Encounter - Barbara Lucero RN - 03/03/2025 8:12 AM EDT I apologize, this was my error, I did not attached the labels to the specimen. Patient has a follow up on 03/12/2025 at 1 pm. Is it okay to recollect at that time? * Telephone Encounter - Gertrude Li PA-C - 03/03/2025 8:12 AM EDT Ok to repeat * Telephone Encounter - Barbara Lucero RN - 03/03/2025 8:12 AM EDT Attempt to call patient to advise of error, no answer. * Telephone Encounter - Asia Barreto RN - 03/03/2025 8:12 AM EDT UDS was done at most recent OV 03/12 documented in this encounter Plan of Treatment Upcoming Encounters Date Type Department Care Team (Late st Contact Info) Description 06/18/2025 12:15 PM EDT Office Visit [facility] [address] [place] [address] Gertrude Li PA-C [address] [place] [address] documented as of this encounter Visit Diagnoses Not on filedocumented in this encounter Care Teams Geriatric Nurse Practitioner Relationship Specialty Start Date End Date Kapil Marr MD [address] [place] [address] PCP - General Family Medicine 02/19/25 documented as of this encounter
--- OUTSIDE RECORDS SUMMARY | 2025-03-25 10:46 | XMS_ITS | Encounter Summary ---
Author Organization [facility] [employer] [facility] tem Address [id number] [address] [place] [address] Care Team Providers Care Production Control Expediter Name Role Phone Kapil Marr MD Primary Care Provider [phone] Encounter Details Date Type Department Care Team (Late st Contact Info) Description 02/28/2025 Orders Only [facility] [address] [place] [phone] Barbara Lucero RN Reflex sympathetic dystrophy of right upper extremity (Primary Dx); Encounter for long-term use of opiate analgesic Social History Tobacco Use Types Packs/Day Years [...] you attend chur ch or moravian services? Patient declined 08/13/2020 Do you belong [...] Recorded Do you need help finding a [employer] career center and/or a training program? [...] Description 06/18/2025 12:15 PM EDT Office Visit [facility] [address] [place] [phone] Gertrude Li, PA-C [address] [place] [address] documented as of this encounter Visit Diagnoses Diagnosis Reflex sympathetic dystrophy of right upper extremity- Primary Encounter for long-term use of opiate analgesic Encounter for long-term (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 of other medications documented in this encounter Care Teams Production Control Expediter Relationship Specialty Start Date End Date Kapil Marr MD [address] [facility], [place] [address] PCP - General Family Medicine 02/19/25 documented as of this encounter
--- OUTSIDE RECORDS SUMMARY | 2025-03-25 10:46 | XMS_ITS | Encounter Summary ---
Author Organization [facility] [facility] tem Address [id number] [address] [place] [address] Care Team Providers Care All Source Intelligence Name Role Phone Kapil Marr MD Primary Care Provider [phone] Encounter Details Date Type Department Care Team (Late st Contact Info) Description 09/07/2023 Telephone [facility] [address] [place] [phone] Latosha Gray CNA Social History Tobacco Use [...] you attend chur ch or alevism services? Patient declined 08/13/2020 Do you belong to any clubs o r organizations such as advent groups, unions, fraternal or athletic groups, or [...] Recorded Do you need help finding a [facility] [employer] center and/or a training program? No 08/13/2020 [...] for OV. Procedure and UDS ordered, pending [facility] approval. Patient reports she was calling because she was admitted to [facility] for sepsis and was there for 3 days. Patient unsure of dates of admission. Seems somewhat confused about days. Explained today is . She then thinks she must have been in the hospital over the weekend, but not positive. Reminded her that her fill date for her [place] would be adjusted due to hospitalization. Please check on [facility] approval Thank you documented in this encounter Plan of Treatment Upcoming Encounters Date Type Department Care Team (Late st Contact Info) Description 06/18/2025 12:15 PM EDT Office Visit [facility] [address] [place] [phone] Gertrude Li, PAJuan JoseC [address] [place], [place] [phone] documented as of this encounter Visit Diagnoses Not on filedocumented in this encounter Care Teams All Source Intelligence Relationship Specialty Start Date End Date Kapil Marr MD [address] [place] [address] PCP - General Family Medicine 02/19/25 documented as of this encounter
--- OUTSIDE RECORDS SUMMARY | 2025-03-25 10:46 | XMS_ITS | Encounter Summary ---
Author Organization [facility] Address [address] [place] [address] Care Team Providers Care [employer] Name Role Phone Kofi Gotti MD Primary Care Provider [phone] Kofi Gotti MD Primary Care Provider [phone] Lissette Matamoros LPN Unavailable Unavailable Unallocated, Noms Provider Primary Care Provi emiliana Latosha Olmstead NP Unavailable Kofi Gotti MD Primary Care Provider [phone] Ninfa Canela MA Unavailable [phone] Unallocated, Noms Provider Primary Care Provi [...] EST Narrative 08/08/2023 10:08 [place] [address] XRay Report Signed Patient: RENATE CARNES MR#: [id number] : 1960 Acct:[id number] Age/Sex: 63 / F ADM Date: 08/07/23 Loc: Attending Dr: Cammie Segura Ordering Physician: Cammie Segura Date of Service: 08/07/23 Procedure(s): XR foot LT min 3V Accession Number(s): [id number] cc: Latosha Olmstead DIRECTOR OF KIDS; Cammie Segura [place] [id number] Patient Name: RENATE CARNES MRN: [id number] date: 1960 Sex: F Assigned Patient Location: Current Patient Location: Accession/Order Number: [id number] Exam Date: 08/07/2023 11:27 Report Date: 08/08/2023 [...] Signed By: 08/08/23 1008 DD/ 1005 TD/TT: Repairer Sash And Door: Procedure Note Radiology, Radiologist, MD - 08/08/[address] [address] XRay Report Signed Patient: RENATE CARNES MMR#: [id number] : 1960cct:[id number] Age/Sex: 63 / FADM Date: 08/07/23 Loc: Attending Dr: Cammie Segura Ordering Physician: Cammie Segura Date of Service: 08/07/23 Procedure(s): XR foot LT min 3V Accession Number(s): [id number] cc: Latosha Olmstead DIRECTOR OF KIDS; Cammie Segura [place] [address] Patient Name: RENATE CARNES MRN: [id number] date: 1960 Sex: F Assigned Patient Location: Current Patient Location: Accession/Order Number: [id number] Exam Date: 08/07/2023 11:27 Report Date: 08/08/2023 [...] Rowley Signed By:08/08/23 1008 DD/ 1005 TD/TT: Repairer Sash And Door: us Generic External Data Provider [facility] Final Result documented in this encounter Visit Diagnoses Not on filedocumented in this encounter Care Teams [employer] Relationship Specialty Start Date End Date Kofi Gotti MD PCP - General Family Medicine 02/10/23 10/08/23 Kofi Gotti MD [address] [place] [phone] PCP - General Family Medicine 10/09/23 06/10/24 Unallocated, Jah Mirza MD [address] [place] [address] PCP - General Family Medicine 06/11/24 06/19/24 Kofi Gotti MD [address] [place] [address] PCP - General Family Medicine 06/20/24 02/02/25 Unallocated, Jah Mirza MD [address] [place] [address] PCP - General Family Medicine 02/03/25 Lissette Matamoros LPN Licensed Practical Nurse Family Medicine 01/22/2401/24/24 Latosha Olmstead NP [address] [place] [phone] Nurse Practitioner Family Medicine 06/11/24 02/02/25 Ninfa Canela, JOHNNY [address] [place] [address] Family Medicine 09/13/24 01/30/25 documented as of this encounter
--- OUTSIDE RECORDS SUMMARY | 2025-03-25 10:46 | XMS_ITS | Encounter Summary ---
Author Organization [facility] Address [address] [place] [address] Care Team Providers Care Typesetting Supervisor Name Role Phone Latosha Olmstead NP Unavailable [phone] Kofi Gotti MD Primary Care Provider [phone] Ninfa Canela MA Unavailable [phone] Unallocated, [facility] Provider Primary Care Provi emiliana Encounter Details Date Type Department Care Team (Late st Contact Info) Description 12/25/2024 Orders Only [facility] [address] [place] [address] [place] [address] [place] [address] Social History Tobacco Use Types [...] How often do you attend chur or restoration services? Never 10/11/2023 Do you belong to [...] Patient Health Questionnaire-2 Score 2 11/18/2024 [facility] - Occupational Stress Questionnaire Answer Date [...] documented as of this encounter Care Teams Typesetting Supervisor Relationship Specialty Start Date End Date Kofi Gotti MD [address] [place] [address] PCP - General Family Medicine 06/20/24 02/02/25 Unallocated, Jah Mirza MD [address] [place] [address] PCP - General Family Medicine 02/03/25 Latosha Olmstead NP [address] [place] [address] Nurse Practitioner Family Medicine 06/11/24 02/02/25 Ninfa Canela, JOHNNY [address] [place] [address] Family Medicine 09/13/24 01/30/25 documented as of this encounter
--- OUTSIDE RECORDS SUMMARY | 2025-03-25 10:46 | XMS_ITS | Encounter Summary ---
Author Organization [facility] Address [address] [place] [address] Care Team Providers Care Iron Miner Blasting Name Role Phone Latosha Olmstead NP Unavailable [phone] Kofi Gotti MD Primary Care Provider [phone] Ninfa Canela MA Unavailable [phone] Unallocated, Noms Provider Primary Care Provi emiliana Encounter Details Date Type Department Care Team (Late st Contact Info) Description 10/03/2024 Orders Only [facility] [address] [place] [address] Latosha Olmstead, CRYPTOGRAPHIC TECHNICIAN [address] [place] [address] Social History Tobacco Use Types Packs/Day Years [...] How often do you attend chur or methodist services? Never 10/11/2023 Do you [...] Recorded Patient Health Questionnaire-2 Score 2 01/17/2024 [facility] - Occupational [...] Diabetes Eye Exam (10/03/2024 9:49 AM EST) Latohsa Olmstead NP HEALTH MAINTENANCE Final Result documented in this encounter Visit Diagnoses Not on filedocumented in this encounter Additional Health Concerns Assessment Noted Time PHQ-9 Depression Total Score: 6 10/11/19 3:16 PM EST documented as of this encounter Care Teams Iron Miner Blasting Relationship Specialty Start Date End Date Kofi Gotti MD [address] [place] [address] PCP - General Family Medicine 06/20/24 02/02/25 Unallocated, Noms ProviderMD [address] [place] [address] PCP - General Family Medicine 02/03/25 Latosha Olmstead NP [address] [place] [address] Nurse Practitioner Family Medicine 06/11/24 02/02/25 Ninfa Canela MA [address] [place] [address] Family Medicine 09/13/24 01/30/25 documented as of this encounter
--- OUTSIDE RECORDS SUMMARY | 2025-03-25 10:46 | XMS_ITS | Encounter Summary ---
Author Organization [facility] Address [address] [place] [address] Care Team Providers Care Mica Sizer Name Role Phone Latosha Olmstead NP Unavailable [phone] Kofi Gotti MD Primary Care Provider [phone] Ninfa Canela MA Unavailable [phone] Unallocated, Noms Provider Primary Care Provi emiliana Encounter Details Date Type Department Care Team (Late st Contact Info) Description 10/24/2024 Abstract [facility] [address] [place] [address] Latosha Olmstead, OFFICE ENGINEER [address] [place] [address] Social History Tobacco Use Types Packs/Day Years [...] Recorded Patient Health Questionnaire-2 Score 0 10/24/2024 [facility] - [...] documented as of this encounter Care Teams Mica Sizer Relationship Specialty Start Date End Date Kofi Gotti MD [address] [place] [address] PCP - General Family Medicine 06/20/24 02/02/25 Unallocated, Jah Mirza MD [address] [place] [address] PCP - General Family Medicine 02/03/25 Latosha Olmstead NP [address] [place] [address] Nurse Practitioner Family Medicine 06/11/24 02/02/25 Ninfa Canela, JOHNNY [address] [place] [address] Family Medicine 09/13/24 01/30/25 documented as of this encounter
--- OUTSIDE RECORDS SUMMARY | 2025-03-25 10:46 | XMS_ITS | Encounter Summary ---
Author Organization [facility] Address [address] [place] [address] Care Team Providers Care Tax Lawyer Name Role Phone Kofi Gotti MD Primary Care Provider [phone] Lissette Matamoros LPN Unavailable Unavailable Unallocated, Noms Provider Primary Care Provi emiliana Latosha Olmstead NP Unavailable [phone] Kofi Gotti MD Primary Care Provider [phone] Ninfa Canela MA Unavailable [phone] Unallocated, Noms Provider Primary Care Provi emiliana Encounter Details Date Type Department Care Team (Late st Contact Info) Description 10/19/2023 Orders Only [facility] [address] [place] [address] Epifanio Enrique Social History Tobacco [...] often do you attend chur ch or rastafarian services? Never 10/11/2023 Do you belong to any clubs o r organizations such as presybeterian groups, unions, fraternal or athletic groups, or [...] Recorded Patient Health Questionnaire-2 Score 2 10/11/2023 [facility] [...] documented as of this encounter Care Teams Tax Lawyer Relationship Specialty Start Date End Date Kofi Gotti MD [address] [place] [address] PCP - General Family Medicine 10/09/23 06/10/24 Unallocated, Heraclios MD Yuki [address] [place] [address] PCP - General Family Medicine 06/11/24 06/19/24 Kofi Gotti MD [address] [place] [address] PCP - General Family Medicine 06/20/24 02/02/25 Unallocated, MD [address] [place] [address] PCP - General Family Medicine 02/03/25 Lissette Matamoros LPN Licensed Practical Nurse Family Medicine 01/22/2401/24/24 Latosha Olmstead NP [address] [place] [address] Nurse Practitioner Family Medicine 06/11/24 02/02/25 Ninfa Canela MA [address] [place] [address] Family Medicine 09/13/24 01/30/25 documented as of this encounter
--- OUTSIDE RECORDS SUMMARY | 2025-03-25 10:46 | XMS_ITS | Encounter Summary ---
Author Organization [facility] Address [id number] [address] [place] [address] Care Team Providers Care Student Career Development Specialist Name Role Phone Kapil Marr MD Primary Care Provider [phone] Encounter Details Date Type Department Care Team (Late st Contact Info) Description 10/04/2023 Telephone [facility] [address] [place] [address] Gina Jarvis CNA Social History Tobacco Use [...] often do you attend chur ch or jew services? Patient declined 08/13/2020 Do you belong to any clubs o r organizations such as sabianism groups, unions, fraternal or athletic groups, or [...] Recorded Do you need help finding a [facility] career center and/or a training program? [...] Description 06/18/2025 12:15 PM EDT Office Visit [facility] [address] [place] [address] Gertrude Li, PAJuan JoseC [address] [place] [address] documented as of this encounter Visit Diagnoses Not on filedocumented in this encounter Care Teams Student Career Development Specialist Relationship Specialty Start Date End Date Kapil Marr MD [address] [facility], [place] [address] PCP - General Family Medicine 02/19/25 documented as of this encounter
--- OUTSIDE RECORDS SUMMARY | 2025-03-25 10:46 | XMS_ITS | Encounter Summary ---
Author Organization [facility] Address [address] [place] [address] Care Team Providers Care Medical Laboratory Technical Officer Name Role Phone Kofi Gotti MD Primary Care Provider [phone] Kofi Gotti MD Primary Care Provider [phone] Lissette Matamoros LPN Unavailable Unavailable Unallocated, Noms Provider Primary Care Provi emiliana Latosha Olmstead CONSTRUCTION CONTROLLER Unavailable [phone] Kofi Gotti MD Primary Care Provider [phone] Ninfa Canela MA Unavailable [phone] Unallocated, Noms Provider Primary Care Provi [...] PM EST Narrative 10/02/2023 2:37 PM EST [address] [address] XRay Report Signed Patient: RENATE CARNES MR#: [id number] : 1960 Acct:[id number] Age/Sex: 63 / F ADM Date: Loc: Attending Dr: Ramon Enrique D.P.M. Ordering Physician: Ramon Enrique D.P.M. Date of Service: 10/02/23 Procedure(s): XR foot LT min 3V Accession Number(s): [id number] cc: Latosha Olmstead CONSTRUCTION CONTROLLER; Ramon Enrique D.P.M. [place] [address] Patient Name: RENATE CARNES MRN: [id number] date: 1960 Sex: F Assigned Patient Location: Current Patient Location: Accession/Order Number: [id number] Exam Date: 10/02/2023 02:08 Report Date: 10/02/2023 14:34 At the request of: RAMON ENRIQUE Procedure: XR foot LT min 3V STUDY: XR foot LT min 3V, [id number] HISTORY: LEFT FOOT PAIN COMPARISON: Left foot [...] Signed By: 10/02/23 1437 DD/ 33 TD/TT: Revenue Coordinator: Procedure Note Radiology, Radiologist, - 10/25/2023 [place] [address] XRay Report Signed Patient: RENATE CARNES MMR#: [id number] : 1960cct:[id number] Age/Sex: 63 / FADM Date: Loc: Attending Dr: Ramon Enrique D.P.M. Ordering Physician: Ramon Enrique D.P.M. Date of Service: 10/02/23 Procedure(s): XR foot LT min 3V Accession Number(s): [id number] cc: Latosha Olmstead CONSTRUCTION CONTROLLER; Ramon Enrique D.P.M. [address] [place] [id number] Patient Name: RENATE CARNES MRN: [id number] date: 1960 Sex: F Assigned Patient Location: Current Patient Location: Accession/Order Number: [id number] Exam Date: 10/02/2023 02:08 Report Date: 10/02/2023 14:34 At the request of: RAMON ENRIQUE Procedure: XR foot LT min 3V STUDY: XR foot LT min 3V, [id number] HISTORY: LEFT FOOT PAIN COMPARISON: Left foot [...] Burnett Signed By:10/02/23 1437 DD/ 1434 TD/TT: Revenue Coordinator: us Generic External Data Provider [facility] Final Result documented in this encounter Visit Diagnoses Not on filedocumented in this encounter Care Teams Medical Laboratory Technical Officer Relationship Specialty Start Date End Date Kofi Gotti MD PCP - General Family Medicine 02/10/23 10/08/23 Kofi Gotti MD [address] [place] [address] PCP - General Family Medicine 10/09/23 06/10/24 Unallocated, Jah Mirza MD [address] [place] [address] PCP - General Family Medicine 06/11/24 06/19/24 Kofi Gotti MD [address] [place] [address] PCP - General Family Medicine 06/20/24 02/02/25 Unallocated, Jah Mirza MD [address] [facility] [place] [address] PCP - General Family Medicine 02/03/25 Lissette Matamoros LPN Licensed Practical Nurse Family Medicine 01/22/2401/24/24 Latosha Olmstead NP [address] [place] [address] Nurse Practitioner Family Medicine 06/11/24 02/02/25 Ninfa Canela MA [address] [place] [address] Family Medicine 09/13/24 01/30/25 documented as of this encounter
--- OUTSIDE RECORDS SUMMARY | 2025-03-25 10:47 | XMS_ITS | Clinical Summary ---
Author Organization [facility] Healthcare Address [address] [place] [address] Care Team Providers Care Parts Advisor Name Role Phone Unallocated, Noms Provider Primary Care Provi emiliana Allergies Active Allergy Reactions Criticality Noted Date Comments Latex Rash Low 02/04/2020 Added based on information entered during case entry, please review and add reactions, type, and severity as needed Medications HYDROcodone-acetam inophen (Chugwater) 7.5-325 MG tablet Take 1 tablet by mouth 3 (three) times a day as needed 3 Active pregabalin (Lyrica) 150 MG capsule Take 1 capsule by mouth in the morning and 1 capsule at noon and 1 capsule in the evening. 3 Active denosumab (Prolia) 60 MG/ML solution prefilled syringe Inject 60 mg under the skin every 6 (six) months Active cyanocobalamin (Vitamin B-12) 1000 MCG tablet Take 1,000 mcg by mouth Daily 4 Active ondansetron ODT (Zofran-ODT) 4 MG disintegrating tablet Take 4 mg by mouth every 8 (eight) hours if needed for vomiting or nausea 4 Active ferrous sulfate 325 (65 Fe) MG EC tablet Take 325 mg by mouth in the morning. Take with meals. 4 Active cetirizine (ZyrTEC) 10 MG tabletIndications: Chronic cough Take 1 tablet (10 mg) by mouth Daily 30 tablet 2 4 Active fluticasone (Flonase) 50 MCG/ACT nasal sprayIndications:C hronic cough Administer 2 sprays into each nostril Daily Shake gently. Before first use, prime pump. After use, clean tip and replace cap. 16 g 2 4 Active nitroglycerin (Nitrostat) 0.[address] 0.4 mg under the tongue every 5 (five) minutes if needed for chest pain 5 Active furosemide (Lasix) 40 MG tablet Take 40 mg by mouth in the morning and 40 mg before bedtime. 5 Active insulin glargine (Lantus) 100 UNIT/ML injectionIndicatio ns:Type 2 diabetes mellitus with diabetic neuropathy, with long-term current use of insulin (HCC),Type 2 diabetes mellitus with hyperglycemia, with long-term current use of insulin (HCC) Inject 30 Units under the skin at bedtime 30 mL 1 5 Active insulin lispro (HumaLOG) 100 UNIT/ML injectionIndicatio ns:Type 2 diabetes mellitus with hyperglycemia, with long-term current use of insulin (HCC) INJECT 4 units at breakfast, 6 units at lunch, and 8 units at dinner plus sliding scale coverage, max of 30 units daily 5 each 3 5 Active pen needle 31G x 5 mm miscIndications:Ty pe 2 diabetes mellitus with hyperglycemia, with long-term current use of insulin (HCC) 5 injections daily. Use as instructed 300 each 6 5 026 Active amLODIPine (Norvasc) 10 MG tabletIndications: Essential (primary) hypertension Take 1 tablet (10 mg) by mouth Daily 90 tablet 5 Active atorvastatin (Lipitor) 20 MG tabletIndications: Mixed hyperlipidemia Take 1 tablet (20 mg) by mouth at bedtime 90 tablet 5 025 Active metoprolol succinate XL (Toprol-XL) 50 MG 24 hr tabletIndications: Essential (primary) hypertension Take 1 tablet (50 mg) by mouth Daily 90 tablet 5 025 Active Active Problems Problem Noted Date Diagnosed [...] follow through She is established with local Student Ambassador Goal: bp and DM control, although there again her compliance with blood sugar checking is difficult. She has been referred to local area Endo and Principal Accounts Clerk, but does not go to her appts [...] follow through She is established with local Student Ambassador Goal: bp and DM control, although there again her compliance with blood sugar checking is difficult. She has been referred to local area Endo and Principal Accounts Clerk, but does not go to her appts as scheduled and has been discharged, and does not appear to have a strong support system Assessment & Plan (11/18/2024 6:28 AM EDT): Long standing uncontrolled HTN and DM Multiple attempts to get pt to specialists, does not follow through She is established with local Student Ambassador Goal: bp and DM control, although there again her compliance with blood sugar checking is difficult. She has been referred to [facility] Endo and Principal Accounts Clerk, but does not go to her appts as scheduled and has been discharged, and does not appear to have a strong support system Assessment & Plan (10/24/2024 7:17 AM EST): Long standing uncontrolled HTN and DM Multiple attempts to get pt to specialists, does not follow through She is established with local Student Ambassador, it is of note that in the last week she was admitted to [facility] for elevated kidney function and potassium, med adjustments as well. Urged pt to please continue to follow with Nephrology Goal: bp and DM control, although there again her compliance with blood sugar checking is difficult. She has been referred to [facility] Endo and Principal Accounts Clerk, but does not go to her appts as scheduled and has been discharged, and does not appear to have a strong support system Assessment & Plan (09/11/2024 7:45 AM EST): Long standing uncontrolled HTN and DM Multiple attempts to get pt to specialists, does not follow through She is established with local Student Ambassador, it is of note that in the last week she was admitted to [facility] for elevated kidney function and potassium, med adjustments as well. Urged pt to please continue to follow with Nephrology Goal: bp and DM control, although there again her compliance with blood sugar checking is difficult. She has been referred to [facility] Endo and Principal Accounts Clerk, but does not go to her appts as scheduled and has been discharged, and does not appear to have a strong support system Assessment & Plan (08/27/2024 2:58 PM EST): Long standing uncontrolled HTN and DM Multiple attempts to get pt to specialists, does not follow through She is established with local Student Ambassador Continue to follow Goal: bp and DM control Assessment & Plan (08/27/2024 6:56 AM EST): Long standing uncontrolled HTN and DM Multiple attempts to get pt to specialists, does not follow through She is established with local Student Ambassador Continue to follow Goal: bp and DM control 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 08/27/2024 Assessment & Plan (08/27/2024 6:58 AM EST): 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 health 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 Porras at [facility] Assessment & Plan (01/27/2025 5:33 [...] Assessment: on insulin managed by endocrinology at [facility], saw ASSISTANT PROFESSOR OF NURSING 06/08 and had insulin increased. OV scanned [...] (10/11/2023): Added automatically from request for surgery [id number] Added automatically from request for surgery [id number] Renal cyst 01/10/2017 Overview (10/11/2023): Enlarging left [...] History of amputation ([facility]) 06/11/2024 06/24/2024 Chronic kidney disease, stage 3b [...] 06/24/2024 Chronic kidney disease, stage III (moderate) 4 04/01/2024 History of hysterectomy 10/11/2023 1111/2023 Overview (10/11/2023): Cervical cancer MVP (mitral valve prolapse) 06/06/2023 06/24/2024 Overview (10/11/2023): Last Assessment & Plan: Assessment: states has very rare intermittent palpitations Denies chest pain No recent ECHO Polyneuropathy due to type 2 diabetes mellitus 06/15/2022 06/24/2024 Stage 3a chronic kidney disease 11/15/2021 06/24/2024 Overview (10/11/2023): Last Assessment & Plan: Assessment: follows with nephrology at [facility] Repeat labs scanned Potassium 4.9 Cr 1.68 [...] Care Team Description 01/31/2025 Patient Outreach [facility] [address] [place] [address] Griselda Allen LSW 01/30/2025 Patient Outreach [facility] [address] [place] [address] Ninfa Canela MA 01/30/2025 Telephone [facility] [address] [place] [address] Latosha Olmstead NP 01/30/2025 Telephone [facility] [address] [place] [address] Latosha Olmstead NP 01/30/2025 Telephone [facility] [address] [place] [address] Latosha Olmstead NP 01/30/2025 Orders Only [facility] [address] [place] [address] Latosha Olmstead NP 01/30/2025 Clinisync Result Encounter [facility] External Department Unsolicited Latosha Olmstead NP 01/27/2025 2:40 PM EDT Office Visit [facility] [address] [place] [address] Latosha Olmstead NP Chronic kidney disease, stage 4 (severe) ([facility]) (Primary Dx); Mixed hyperlipidemia ; Essential (primary) hypertension ; Burning with urination; UTI symptoms; Urinary tract infection symptoms; Type 2 diabetes mellitus with diabetic neuropathy, with long-term current use of insulin ([facility]); History of neurogenic bladder; Neurogenic bladder; 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; Hyperparathyroidism, unspecified ([facility]); B12 deficiency; Type 2 diabetes mellitus with hyperglycemia, with long-term current use of insulin ([facility]); Vitamin D deficiency; Hypomagnesemia; Non compliance w medication regimen; Fatigue, unspecified type; Other fatigue 01/27/2025 Bamboo flowsheet [facility] [address] [place] [address] Latosha Olmstead NP 12/25/2024 Orders Only [facility] [address] [place] [address] Gina Nicholson MD from Last 3 Months Immunizations Immunization Administration [...] Patient Health Questionnaire-2 Score 2 11/18/2024 [facility] of Occupat ional [facility] - Occupational Stress Questionnaire Answer Date [...] * SCANNED LABS (01/30/2025 11:47 AM EDT) Latosha Olmstead PLANT RELIABILITY ENGINEER LAB CHG PERFORMABLES Final Resu lt * [...] Latosha Olmstead NP CLINISYNC Final Result CLINISYNC [facility] * VITAMIN B12 (01/30/2025 9:25 AM EDT) VITAMIN B12 320 232 - 1245 pg/mL TBH Comment: Performed at: - [address] [id number] Counselor Manager: Chris Luna PhD, Phone: [phone] 01/30/2025 9:25 AM EDT 01/30/2025 9:41 AM EDT Narrative CLINISYNC - 01/31/2025 4:07 AM EDT Latosha Olmstead PLANT RELIABILITY ENGINEER LAB BLOOD ORDERABLES Final Resu lt CLINISYNC [facility] * (ABNORMAL) TRANSFERRIN (01/30/2025 9:25 AM EDT) TRANSFERRIN 184(A) 192 - 364 mg/dL TBH Comment: Performed at: [facility] [address] [id number] Counselor Manager: Chris Luna PhD, Phone: [phone] 01/30/2025 9:25 AM EDT 01/30/2025 9:41 AM EDT Narrative CLINISYNC - 01/31/2025 5:07 AM EDT Latosha Olmstead NP LAB BLOOD ORDERABLES Final Resu lt Performing Organization Address [facility]/ZIP Co de Phone Number CLINISYNC TB[facility] * (ABNORMAL) METRO IRON AND TIBC (01/30/2025 9:25 AM EDT) TBH IRON 35.0(L) 50.0 - 170.0 ug/dL TBH TBH TOTAL IRON BINDING CAPACITY 221.0(L) 250.0 - 450.0 ug/dL TBH TBH PERCENT IRON SATURATION 15.8 % TBH 01/30/2025 9:25 AM EDT 01/30/2025 9:41 AM EDT Narrative CLINISYNC - 01/30/2025 11:16 AM EDT Latosha Olmstead PLANT RELIABILITY ENGINEER CLINISYNC Final Result CLINISYNC [facility] * (ABNORMAL) [facility] PTH, INTRAOPERATIVE (01/30/2025 9:25 AM EDT) PTH, INTACT 145(A) 15 - 65 pg/mL TBH Comment: Performed at: - [facility] [id number] Counselor Manager: Chris Luna PhD, Phone: [phone] 01/30/2025 9:25 AM EDT 01/30/2025 9:41 AM EDT Narrative CLINISYNC - 01/31/2025 11:08 AM EDT us Latosha Olmstead PLANT RELIABILITY ENGINEER CLINISYNC Final Result CLINISYOH TB * (ABNORMAL) [facility] LIVER PANEL (01/30/2025 9:25 AM EDT) BILIRUBIN [...] Latosha Olmstead NP CLINISYNC Final Result CLINISYNC TB[facility] * ALL THYROID STIM HORMONE (01/30/2025 9:25 AM EDT) THYROID STIMULATING HORMONE 0.429 0.358 - 3.740 uIU/mL TBH 01/30/2025 9:25 AM EDT 01/30/2025 9:41 AM EDT Narrative CLINISYNC - 01/30/2025 11:57 AM EDT Latosha Zapatamundo PLANT RELIABILITY ENGINEER CLINISYNC Final Result CLINISYNC TBH * ALL PHOSPHOROUS (01/30/2025 9:25 AM EDT) PHOSPHORUS 4.6 2.6 - 4.7 mg/dL TBH 01/30/2025 9:25 AM EDT 01/30/2025 9:41 AM EDT Narrative CLINISYNC - 01/30/2025 11:57 AM EDT Latosha Olmstead PLANT RELIABILITY ENGINEER CLINISYNC Final Result Performing Organization Address [facility]/ZIP Co de Phone Number CLINISYNC TBH * (ABNORMAL) ALL MAGNESIUM (01/30/2025 9:25 AM EDT) MAGNESIUM 1.6(L) 1.8 - 2.4 mg/dL TBH 01/30/2025 9:25 AM EDT 01/30/2025 9:41 AM EDT Narrative CLINISYNC - 01/30/2025 11:57 AM EDT Latosha Olmstead PLANT RELIABILITY ENGINEER CLINISYNC Final Result Performing Organization Address City/[facility]/ZIP Co de Phone Number CLINISYNC TBH * (ABNORMAL) ALL BASIC METABOLIC PANEL (01/30/2025 [...] 0.55 - 1.02 mg/dL TBH TBH EGFR-AF BERMUDIAN 18(L) >=60 mL/min/1.7 3m 2 TBH TBH EGFR-NON AF BERMUDIAN 15(L) >=60 mL/min/1.7 3m 2 TBH BUN CREATININE RATIO 19.0 TBH CALCIUM 9.0 8.5 - 10.1 mg/dL TBH 01/30/2025 9:25 AM EDT 01/30/2025 9:41 AM EDT Narrative CLINISYNC - 01/30/2025 11:57 AM EDT Latosha Olmstead NP CLINISYNC Final Result CLINISYOH TB * TBH VITAMIN D 25 OH (01/30/2025 9:23 AM EDT) VITAMIN D 10.1 ng/mL TB Comment: <20 ng/mL Vit D deficient 20-<30 ng/mL Vit D insufficient 30-100 ng/mL Vit D sufficient >100 ng/mL Potential Toxicity 01/30/2025 9:23 AM EDT 01/30/2025 9:25 AM EDT Narrative CLINISYNC - 01/30/2025 11:50 AM EDT Latosha Olmstead NP CLINISYNC Final Result Performing Organization Address [facility]/ZIP Co de Phone Number [facility] * (ABNORMAL) [facility] FERRITIN (01/30/2025 9:23 AM EDT) FERRITIN 878.0(H) 8.0 - 252.0 ng/mL TB 01/30/2025 9:23 AM EDT 01/30/2025 9:25 AM EDT Narrative CLINISYNC - 01/30/2025 11:50 AM EDT Latosha Olmstead NP CLINISYNC Final Result Performing Organization Address City/[facility]/ZIP Co de Phone Number CLINISYOH TB * ALL THYROXINE (T4) FREE (01/30/2025 9:23 AM EDT) FREE T4 0.98 0.76 - 1.46 ng/dL TB 01/30/2025 9:23 AM EDT 01/30/2025 9:25 AM EDT Narrative CLINISYNC - 01/30/2025 11:50 AM EDT Latosha Olmstead PLANT RELIABILITY ENGINEER CLINISYNC Final Result [facility] * ALL FOLIC ACID (01/30/2025 9:23 AM EDT) Pathologist [facility] FOLATE 45.30 8.60 - 58.90 ng/mL TB 01/30/2025 9:23 AM EDT 01/30/2025 9:25 AM EDT Narrative CLINISYNC - 01/30/2025 11:50 AM EDT Latosha Olmstead PLANT RELIABILITY ENGINEER CLINISYNC Final Result Performing Organization Address [facility]/ZIP Co de Phone Number [facility] * (ABNORMAL) POCT Urinalysis dipstick (01/27/2025 3:57 PM EDT) Pathologist [facility] Color, UA Light Yellow Clarity, UA Cloudy [...] Urine 01/27/2025 3:57 PM EDT Latosha Olmstead PLANT RELIABILITY ENGINEER POINT OF CARE TEST ENTER/EDIT O RDERABLES Final Result * (ABNORMAL) URINARY TRACT INFECTION (HTRX) (01/27/2025 8:41 AM EDT) [facility] ERMB, C; MEFA 21.752(A) 23.000 - 27.611 ppm 01/29/2025 6:47 PM EDT [facility] ERMB, C; MEFA Detected(A) 23.000 - 27.611 ppm 01/29/2025 6:47 PM EDT [facility] MECA 28.298(A) 23.000 - 31.199 ppm 01/29/2025 6:46 PM EDT [facility] MECA Detected(A) 23.000 - 31.199 ppm 01/29/2025 6:46 PM EDT [facility] ACINETOBACTER BAUMANII 0.000 19.961 - 24.689 ppm 01/29/2025 6:47 PM EDT [facility] ACINETOBACTER BAUMANII Not Detected 19.961 - 24.689 ppm 01/29/2025 6:47 PM EDT [facility] CITROBACTER FREUNDII 0.000 23.000 - 31.881 ppm 01/29/2025 6:47 PM EDT [facility] CITROBACTER FREUNDII Not Detected 23.000 - 31.881 ppm 01/29/2025 6:47 PM EDT [facility] ENTEROBACTER AEROGENES, CLOACAE 0.000 23.000 - 31.535 ppm 01/29/2025 6:47 PM EDT [facility] ENTEROBACTER AEROGENES, CLOACAE Not Detected 23.000 - 31.535 ppm 01/29/2025 6:47 PM EDT [facility] ENTEROCOCCUS FAECALIS, FAECIUM 0.000 26.000 - 31.575 ppm 01/29/2025 6:47 PM EDT [facility] ENTEROCOCCUS FAECALIS, FAECIUM Not Detected 26.000 - 31.575 ppm 01/29/2025 6:47 PM EDT [facility] ESCHERICHIA COLI 0.000 23.000 - 28.500 ppm 01/29/2025 6:47 PM EDT [facility] ESCHERICHIA COLI Not Detected 23.000 - 28.500 ppm 01/29/2025 6:47 PM EDT [facility] KLEBSIELLA PNEUMONIAE, OXYTOCA 25.016(A) 23.000 - 30.500 ppm 01/29/2025 6:47 PM EDT [facility] KLEBSIELLA PNEUMONIAE, OXYTOCA Detected(A) 23.000 - 30.500 ppm 01/29/2025 6:47 PM EDT [facility] MORGANELLA MORGANII 0.000 19.961 - 24.689 ppm 01/29/2025 6:47 PM EDT [facility] MORGANELLA MORGANII Not Detected 19.961 - 24.689 ppm 01/29/2025 6:47 PM EDT [facility] PROTEUS MIRABILIS, VULGARIS 0.000 23.000 - 28.500 ppm 01/29/2025 6:46 PM EDT [facility] PROTEUS MIRABILIS, VULGARIS Not Detected 23.000 - 28.500 ppm 01/29/2025 6:46 PM EDT [facility] PSEUDOMONAS AERUGINOSA 0.000 23.000 - 28.500 ppm 01/29/2025 6:47 PM EDT [facility] PSEUDOMONAS AERUGINOSA Not Detected 23.000 - 28.500 ppm 01/29/2025 6:47 PM EDT [facility] STAPHYLOCOCCUS AUREUS 0.000 26.000 - 30.902 ppm 01/29/2025 6:47 PM EDT [facility] STAPHYLOCOCCUS AUREUS Not Detected 26.000 - 30.902 ppm 01/29/2025 6:47 PM EDT [facility] STREPTOCOCCUS AGALACTIAE (GROUP B STREP) 20.905(A) 26.000 - 32.222 ppm 01/29/2025 6:47 PM EDT [facility] STREPTOCOCCUS AGALACTIAE (GROUP B STREP) Detected(A) 26.000 - 32.222 ppm 01/29/2025 6:47 PM EDT [facility] RICKY ALBICANS, PARAPSILOSIS, TROPICALIS 0.000 19.961 - 30.770 ppm 01/29/2025 6:47 PM EDT [facility] RICKY ALBICANS, PARAPSILOSIS, TROPICALIS Not Detected 19.961 - 30.770 ppm 01/29/2025 6:47 PM EDT [facility] RICKY GLABRATA 0.000 23.000 - 32.138 ppm 01/29/2025 6:46 PM EDT [facility] RICKY GLABRATA Not Detected 23.000 - 32.138 ppm 01/29/2025 6:46 PM EDT [facility] RICKY KRUSEI 0.000 23.000 - 32.271 ppm 01/29/2025 6:46 PM EDT [facility] RICKY KRUSEI Not Detected 23.000 - 32.271 ppm 01/29/2025 6:46 PM EDT [facility] SERRATIA MARCESCENS 0.000 23.000 - 31.204 ppm 01/29/2025 6:47 PM EDT [facility] SERRATIA MARCESCENS Not Detected 23.000 - 31.204 ppm 01/29/2025 6:47 PM EDT [facility] STREPTOCOCCUS PYOGENES (GROUP A STREP) 0.000 19.961 - 24.689 ppm 01/29/2025 6:47 PM EDT [facility] STREPTOCOCCUS PYOGENES (GROUP A STREP) Not Detected 19.961 - 24.689 ppm 01/29/2025 6:47 PM EDT [facility] STAPHYLOCOCCUS EPIDERMIDIS, HAEMOLYTICUS, LUGDUNENSIS, SAPROPHYTICUS (URINA 0.000 19.961 - 24.689 ppm 01/29/2025 6:47 PM EDT [facility] STAPHYLOCOCCUS EPIDERMIDIS, HAEMOLYTICUS, LUGDUNENSIS, SAPROPHYTICUS (URINA Not Detected 19.961 - 24.689 ppm 01/29/2025 6:47 PM EDT [facility] STAPHYLOCOCCUS EPIDERMIDIS, HAEMOLYTICUS, LUGDUNENSIS, SAPROPHYTICUS (URINA 30.056(A) 19.961 - 24.689 ppm 01/29/2025 6:46 PM EDT [facility] STAPHYLOCOCCUS EPIDERMIDIS, HAEMOLYTICUS, LUGDUNENSIS, SAPROPHYTICUS (URINA Detected(A) 19.961 - 24.689 ppm 01/29/2025 6:46 PM EDT [facility] Urine 01/27/2025 8:41 AM EDT 01/28/2025 11:00 PM EDT Latosha Olmstead NP LAB BLOOD ORDERABLES Final Resu lt [facility] [address] [place] [address] * Diabetic Retinopathy Screening - OU - [...] EDT Narrative 04/17/2024 12:40 PM EDT The [address] [address] Mammography Report Signed Patient: AISLINN WHEELER MR#: [id number] : 1960 Acct:[id number] Age/Sex: 63 / F ADM Date: 04/17/24 Loc: MAMMO Attending Dr: Latosha Olmstead NP Ordering Physician: Latosha Olmstead NP Results: Date of Service: 04/17/24 Follow Up: Procedure(s): MM tomosynthesis screening BI Accession Number(s): [id number] cc: Latosha Olmstead NP Patient Name: AISLINN WHEELER MR#: [id number] : 1960 Exam Date: 04/17/2024 Ordering Doctor: [...] brain cancer at age 58. LOCATION: [facility] BREAST COMPOSITION: The breasts are heterogeneously dense,which [...] Signed By: 04/17/24 1240 DD/ 1239 TD/TT: Drug And Alcohol Counsellor: Procedure Note Radiology, Radiologist, - 04/17/2024 [place] [address] Mammography Report Signed Patient: AISLINN WHEELER MMR#: [id number] : 1960cct:[id number] Age/Sex: 63 / FADM Date: 04/17/24 Loc: MAMMO Attending Dr: Latosha Olmstead NP Ordering Physician: Latosha Olmstead NPResults: Date of Service: 04/17/24Follow Up: Procedure(s): MM tomosynthesis screening BI Accession Number(s): [id number] cc: Latosha Olmstead PLANT RELIABILITY ENGINEER Patient Name: AISLINN WHEELER MR#: [id number] : 1960 Exam Date: 04/17/2024 Ordering Doctor: [...] brain cancer at age 58. LOCATION: [facility] BREAST COMPOSITION: The breasts are heterogeneously dense,which [...] M.D. Signed By:04/17/24 1240 DD/ 1239 TD/TT: Drug And Alcohol Counsellor: Latosha Olmstead NP CLINISYNC IMAGING Final Result from Last 3 Months or Most Recently Relevant to Health Maintenance Insurance [facility] MEDICARE ADVANTAGE Care Teams Parts Advisor Relationship Specialty Start Date End Date Unallocated, [place], [address] [facility] [place] [address] PCP - General Family Medicine 02/03/25
[2025-03-25 11:20] LABS: Hematocrit 31.1 % (36.0-48.0); Hemoglobin 10.3 g/dL (12.0-16.0); Mean Corpuscular HGB Conc 33.1 g/dL (29.9-35.2); Mean Corpuscular Hemoglobin 25.8 pg (26.7-34.0); Mean Corpuscular Volume 77.8 fL (81.0-99.0); Platelet Count 261 10^3/uL (150-450); Red Blood Count 4.00 10^6/uL (4.20-5.40); White Blood Count 7.9 10^3/uL (4.0-11.0)
[2025-03-25 11:30] LABS: Albumin Level 2.5 g/dL (3.4-5.0); Anion Gap 14.6; Blood Urea Nitrogen 44.0 mg/dL (7.0-18.0); Calcium 9.1 mg/dL (8.5-10.1); Carbon Dioxide 23.0 mmol/L (21.0-32.0); Chloride 99 mmol/L (98-107); Estimated GFR (African America 20 (>=60 mL/min/1.73m^2); Estimated GFR (Non-African Ame 16 (>=60 mL/min/1.73m^2); Glucose 499 mg/dL (74-106); Potassium 5.6 mmol/L (3.5-5.1); Sodium 131 mmol/L (136-145)
[2025-03-25 12:12] LABS: Iron 61.0 ug/dL (50.0-170.0); Percent Iron Saturation 23.3 %; Total Iron Binding Capacity 262.0 ug/dL (250.0-450.0)
[2025-03-25 12:30] LABS: Ferritin 458.0 ng/mL (8.0-252.0); Folate 14.30 ng/mL (8.60-58.90)
[2025-03-26 08:09] LABS: Vitamin B12 385 pg/mL (232-1245)
== END 2025-03-25 10:42 | disposition home or self-care (01) ==
LOC: LAB 10:42
PROVIDERS: Visit Provider Internal Medicine Nephrology
DX: E53.8 Deficiency of other specified B group vitamins (principal); D63.1 Anemia in chronic kidney disease; N18.4 Chronic kidney disease, stage 4 (severe); N18.9 Chronic kidney disease, unspecified; I12.9 Hypertensive chronic kidney disease with stage 1 through stage 4 chronic kidney disease, or unspecified chronic kidney disease
CPT/HCPCS: 36415; 80069; 82607; 82728; 82746; 83540; 83550; 85027

== ENCOUNTER 2025-04-16 18:44 | Emergency (ER) | payer MEDICARE, SELFPAY ==
--- OUTSIDE RECORDS SUMMARY | 2025-02-13 05:22 | XMS_ITS ---
Author Organization [facility] [place] Address [address] [place] [address] Care Team Providers Care Nurse Research Name Role Phone Ramirez Marr Primary Care Provider REASON FOR VISIT TCM [facility]- Attempted X 1 Encounters Encounter Location Date Provider Diagnosis [facility] [address] [place] [address] 02/13/2025 Ramirez Marr Plan Of Treatment No Information Progress Notes * Renate CARNES MDOB: 8 (64 yo F)Acc No.[id number]:02/13/2025 Patient: Renate MARIE :1960 A ge:64 Y S ex:Female Address:[address] [place] [address], [phone] * true * Date: Generated for Printi ng/Famichoacanog/eTransmitting on: 0 04/16/2025 06:49 PM EDT
[2025-04-16] VITALS (23 sets, daily range): BP systolic 168–218; BP diastolic 85–136; PULSE 77–85; TEMP 36.5; O2SAT 98; BMI 23.4
--- OUTSIDE RECORDS SUMMARY | 2025-04-16 18:49 | XMS_ITS | Encounter Summary ---
Author Organization [facility] Address [address] [place] [address] Care Team Providers Care Electronic Resources Librarian Name Role Phone Kofi Gotti MD Primary Care Provider [phone] Lissette Matamoros LPN Unavailable Unavailable Unallocated, Noms Provider Primary Care Provi emiliana Latosha Olmstead FIELD SALES AGENT Unavailable [phone] Kofi Gotti MD Primary Care Provider Ninfa Canela MA Unavailable [phone] Unallocated, Noms Provider Primary Care Provi emiliana Encounter Details Date Type Department Care Team (Late st Contact Info) Description 11/02/2023 Orders Only [facility] [address] [place] [address] Latosha Olmstead, FIELD SALES AGENT [address] [place] [address] Type 2 diabetes mellitus with hyperglycemia, with [...] How often do you attend chur or uatsdin services? Never 10/11/2023 Do you belong to any clubs o r organizations such as restorationist groups, unions, fraternal or athletic groups, or [...] Recorded Patient Health Questionnaire-2 Score 2 10/11/2023 [facility] [place] of Occupat ional Health - Occupational Stress [...] documented as of this encounter Care Teams Electronic Resources Librarian Relationship Specialty Start Date End Date Kofi Gotti MD [address] [place] [address] PCP - General Family Medicine 10/09/23 06/10/24 Unallocated, Noms Provider, MD [address] [place] [address] PCP - General Family Medicine 06/11/24 06/19/24 Kofi Gotti MD [address] [place] [address] PCP - General Family Medicine 06/20/24 02/02/25 Unallocated, Jah Mirza MD [address] [place] [address] PCP - General Family Medicine 02/03/25 Lissette Matamoros LPN Licensed Practical Nurse Family Medicine 01/22/2401/24/24 Latosha Olmstead NP [address] [place] [address] Nurse Practitioner Family Medicine 06/11/24 02/02/25 Ninfa Canela MA [address] [place] [address] Family Medicine 09/13/24 01/30/25 documented as of this encounter
--- OUTSIDE RECORDS SUMMARY | 2025-04-16 18:49 | XMS_ITS | Encounter Summary ---
Author Organization [facility] Address [address] [place] [address] Care Team Providers Care Survival Equipment Repairer Name Role Phone Kofi Gotti MD Primary Care Provider [phone] Lissette Matamoros LPN Unavailable Unavailable Unallocated, Noms Provider Primary Care Provi emiliana Latosha Olmstead NP Unavailable [phone] Kofi Gotti MD Primary Care Provider [phone] Ninfa Cnaela MA Unavailable [phone] Unallocated, Noms Provider Primary Care Provi emiliana Encounter Details Date Type Department Care Team (Late st Contact Info) Description 01/11/2024 Orders Only [facility] [address] [place] [address] Latosha Olmstead, PROOF SORTER [address] [place] [address] Social History Tobacco Use Types Packs/Day Years [...] How often do you attend chur or moravian services? Never 10/11/2023 Do you belong to any clubs o r organizations such as religious groups, unions, fraternal or athletic groups, or [...] Recorded Patient Health Questionnaire-2 Score 0 12/21/2023 [facility] [place] of Occupat ional Health - Occupational Stress [...] documented as of this encounter Care Teams Survival Equipment Repairer Relationship Specialty Start Date End Date Kofi Gotti MD [address] [place] [address] PCP - General Family Medicine 10/09/23 06/10/24 Unallocated, Jah Mirza MD [address] [place] [address] PCP - General Family Medicine 06/11/24 06/19/24 Kofi Gotti MD [address] [place] [address] PCP - General Family Medicine 06/20/24 02/02/25 Unallocated, Jah Mirza MD [address] [place] [address] PCP - General Family Medicine 02/03/25 Lissette Matamoros LPN Licensed Practical Nurse Family Medicine 01/22/2401/24/24 Latosha Olmstead NP [address] [place] [address] Nurse Practitioner Family Medicine 06/11/24 02/02/25 Ninfa Canela MA [address] [place] [address] Family Medicine 09/13/24 01/30/25 documented as of this encounter
--- OUTSIDE RECORDS SUMMARY | 2025-04-16 18:49 | XMS_ITS | Encounter Summary ---
Author Organization [facility] Address [address] [facility] [place] [address] Care Team Providers Care Fisheries Technician Name Role Phone Kofi Gotti MD Primary Care Provider [phone] Lissette Matamoros LPN Unavailable Unavailable Unallocated, Noms Provider Primary Care Provi emiliana Latosha Olmstead NP Unavailable [phone] Kofi Gotti MD Primary Care Provider [phone] Ninfa Canela MA Unavailable [phone] Unallocated, Noms Provider Primary Care Provi emiliana Encounter Details Date Type Department Care Team (Late st Contact Info) Description 01/10/2024 Orders Only [facility] [address] [place] [address] Latosha Olmstead, CONCRETE JOURNEYMAN [address] [place] [address] Social History Tobacco Use Types [...] Recorded Patient Health Questionnaire-2 Score 0 12/21/2023 [facility] [place] of Occupat ional Health - Occupational Stress [...] Chest Radiographic Cristiana ging us Latosha Olmstead CONCRETE JOURNEYMAN IMG XR PROCEDURES Final Result documented in this encounter Visit Diagnoses Not on filedocumented in this encounter Additional Health Concerns Assessment Noted Time PHQ-9 Depression Total Score: 6 10/11/19 24 3:16 PM EST documented as of this encounter Care Teams Fisheries Technician Relationship Specialty Start Date End Date Kofi Gotti MD [address] [place] [address] PCP - General Family Medicine 10/09/23 06/10/24 Unallocated, Jah Mirza MD [address] [place] [address] PCP - General Family Medicine 06/11/24 06/19/24 Kofi Gotti MD [address] [place] [address] PCP - General Family Medicine 06/20/24 02/02/25 Unallocated, Jah Mirza MD [address] [place] [address] PCP - General Family Medicine 02/03/25 Lissette Matamoros LPN Licensed Practical Nurse Family Medicine 01/22/2401/24/24 Latosha Olmstead NP [address] [place] [address] Nurse Practitioner Family Medicine 06/11/24 02/02/25 Ninfa Canela MA [address] [place] [address] Family Medicine 09/13/24 01/30/25 documented as of this encounter
--- OUTSIDE RECORDS SUMMARY | 2025-04-16 18:50 | XMS_ITS | Encounter Summary ---
Author Organization [facility] Address [address] [place] [address] Care Team Providers Care Household Appliance Mechanic Name Role Phone Latosha Olmstead NP Unavailable [phone] Kofi Gotti MD Primary Care Provider [phone] Ninfa Canela MA Unavailable [phone] Unallocated, Noms Provider Primary Care Provi emiliana Encounter Details Date Type Department Care Team (Late st Contact Info) Description 01/30/2025 Orders Only [facility] [address] [place] [address] Latosha lOmstead, PATIENT COMPANION [address] [place] [address] Social History Tobacco Use Types Packs/Day Years [...] How often do you attend chur or judaism services? Never 10/11/2023 Do you belong to any clubs o r organizations such as lutheran groups, unions, fraternal or athletic groups, or [...] Recorded Patient Health Questionnaire-2 Score 2 11/18/2024 [facility] of Occupat ional Health - Occupational [...] (01/30/2025 11:47 AM EDT) us Latosha Olmstead PATIENT COMPANION LAB CHG PERFORMABLES Final Resu lt documented in this encounter Visit Diagnoses Not on filedocumented in this encounter Additional Health Concerns Assessment Noted Time PHQ-9 Depression Total Score: 10 025 10:35 AM EDT documented as of this encounter Care Teams Household Appliance Mechanic Relationship Specialty Start Date End Date Kofi Gotti MD [address] [place] [address] PCP - General Family Medicine 06/20/24 02/02/25 Unallocated, Noms ProviderMD [address] [place] [address] PCP - General Family Medicine 02/03/25 Latosha Olmstead NP [address] [place] [address] Nurse Practitioner Family Medicine 06/11/24 02/02/25 Ninfa Canela, JOHNNY [address] [place] [address] Family Medicine 09/13/24 01/30/25 documented as of this encounter
--- OUTSIDE RECORDS SUMMARY | 2025-04-16 18:50 | XMS_ITS | Encounter Summary ---
Author Organization [facility] Address [address] [place] [address] Care Team Providers Care Live In Housekeeper Name Role Phone Kofi Gotti MD Primary Care Provider [phone] Unallocated, Noms Provider Primary Care Provi emiliana Latosha Olmstead NP Unavailable [phone] Kofi Gotti MD Primary Care Provider Ninfa Canela MA Unavailable [phone] Unallocated, Noms Provider Primary Care Provi emiliana Encounter Details Date Type Department Care Team (Late st Contact Info) Description 04/17/2024 Clinisync Result Encounter [facility] External Department Unsolicited Latosha Olmstead, APPLIQUE SEWER [address] [place] [address] Social History Tobacco Use Types Packs/Day Years [...] often do you attend chur ch or taoist services? Never 10/11/2023 Do you belong to any clubs o r organizations such as catholic groups, unions, fraternal or athletic groups, [...] Recorded Patient Health Questionnaire-2 Score 2 01/17/2024 [facility] of Occupat ional Health - Occupational Stress [...] EDT Narrative 04/17/2024 12:40 PM EDT The [address] [address] Mammography Report Signed Patient: AISLINN CARNES MR#: [id number] : 1960 Acct:[id number] Age/Sex: 63 / F ADM Date: 04/17/24 Loc: MAMMO Attending Dr: Latosha Olmstead NP Ordering Physician: Latosha Olmstead NP Results: Date of Service: 04/17/24 Follow Up: Procedure(s): MM tomosynthesis screening BI Accession Number(s): [id number] cc: Latosha Olmstead NP Patient Name: AISLINN CARNES MR#: [id number] : 1960 Exam Date: 04/17/2024 Ordering Doctor: [...] brain cancer at age 58. LOCATION: The [facility] BREAST COMPOSITION: The breasts are heterogeneously [...] Signed By: 04/17/24 1240 DD/ 1239 TD/TT: Founder: Procedure Note Radiology, Radiologist, - 04/17/2024 [place] [address] Mammography Report Signed Patient: AISLINN CARNES MMR#: [id number] : 8Acct:[id number] Age/Sex: 63 / FADM Date: 04/17/24 Loc: MAMMO Attending Dr: Latosha Olmstead APPLIQUE SEWER Ordering Physician: Latosha Olmstead NPResults: Date of Service: 04/17/24Follow Up: Procedure(s): MM tomosynthesis screening BI Accession Number(s): [id number] cc: Latosha Olmstead NP Patient Name: AISLINN CARNES MR#: [id number] : 1960 Exam Date: 04/17/2024 Ordering Doctor: [...] brain cancer at age 58. LOCATION: The [facility] BREAST COMPOSITION: The breasts are heterogeneously [...] M.D. Signed By:04/17/24 1240 DD/ 1239 TD/TT: Founder: Latosha Olmstead NP [facility] Final Result documented in this encounter Visit Diagnoses Not on filedocumented in this encounter Additional Health Concerns Assessment Noted Time PHQ-9 Depression Total Score: 6 10/11/19 24 3:16 PM EST documented as of this encounter Care Teams Live In Housekeeper Relationship Specialty Start Date End Date Kofi Gotti MD [address] [place] [address] PCP - General Family Medicine 10/09/23 06/10/24 Unallocated, Jah Mirza MD [address] [place] [address] PCP - General Family Medicine 06/11/24 06/19/24 Kofi Gotti MD [address] [place] [address] PCP - General Family Medicine 06/20/24 02/02/25 Unallocated, Jah Mirza MD [address] [place] [address] PCP - General Family Medicine 02/03/25 Latosha Olmstead NP [address] [place] [address] Nurse Practitioner Family Medicine 06/11/24 02/02/25 Ninfa Canela MA [address] [place] [address] Family Medicine 09/13/24 01/30/25 documented as of this encounter
--- OUTSIDE RECORDS SUMMARY | 2025-04-16 18:50 | XMS_ITS | Encounter Summary ---
Author Organization [facility] [employer] [facility] tem Address [id number] [address] [place] [address] Care Team Providers Care Building Maintenance Engineer Name Role Phone Kapil Marr MD Primary Care Provider [phone] Reason for Visit * Reason Onset Date Comments Med Refill 07/10/2020 Med Refill 07/28/2020 Encounter Details Date Type Department Care Team (Late st Contact Info) Description 07/10/2020 Refill [facility] [address] [place] [address] Lila Che, REY Complex regional pain syndrome [...] 9:51 AM RX called in to [facility] in [place]. Barbara Lucero RN 07/13/20 0951 documented in this encounter Plan of Treatment Upcoming Encounters Date Type Department Care Team (Late st Contact Info) Description 06/18/2025 12:15 PM EDT Office Visit [facility] [address] [place] [address] Gertrude Li PAJuan JoseC [address] [place] [address] documented as of this encounter Visit Diagnoses Diagnosis Complex regional pain syndrome type 1 of right upper extremity documented in this encounter Additional Health Concerns Infection Onset Date Last Indicated Resolved Time COVID-19 Positive 09/28/2021 09/28/2021 10/19/2021 11:12 PM EST documented as of this encounter Care Teams Building Maintenance Engineer Relationship Specialty Start Date End Date Kapil Marr MD [address] [facility], [place] [address] PCP - General Family Medicine 02/19/25 documented as of this encounter
--- OUTSIDE RECORDS SUMMARY | 2025-04-16 18:50 | XMS_ITS | Patient Health Record ---
Author Organization The [facility] in [place] Address [address] [place] [address] Care Team Providers Care Histological Illustrator Name Role Phone Ramirez Maxwell Primary Care Provider Allergies No Known Allergies Results Component Value Reference Range Notes PROF CHEM 8 (BAS METB) Reviewed date:04/28/2024 08:05:24 PM Interpretation: Performing Lab: Notes/Report: The [facility] , Sodium 138 136-145 mmol/L Potassium 5.4 3.5-5.1 mmol/L Chloride 108 98-107 mmol/L Carbon Dioxide 19.0 21.0-32.0 mmol/L Anion Gap 16.4 Glucose 205 74-106 mg/dL Blood Urea Nitrogen 40.0 7.0-18.0 mg/dL Creatinine 2.32 0.55-1.02 mg/dL Estimated GFR ( Va 26 >=60 Estimated GFR (Non- [place] 21 >=60 BUN Creatinine Ratio 17.2 Calcium 7.9 8.5-10.1 mg/dL Performing Lab: see note ML - The [facility] LB XR abdomen 1V Reviewed date:04/28/2024 08:05:24 PM Interpretation: Performing Lab: Notes/Report: Source Facility: [facility]-[address] [place] [address] [place] [address] XRay Report Signed Patient: AISLINN CARNES MR#: [id number] : 1960 Acct:[id number] Age/Sex: 63 / F ADM Date: 04/25/24 Loc: ICU 274-[address]: Landon Maxwell M.D. Ordering Physician: Landon Maxwell M.D. Date of Service: 04/26/24 Procedure(s): XR abdomen 1V Accession Number(s): [id number] cc: Latosha Olmstead NP; Landon Maxwell M.D. [place] [id number] Patient Name: AISLINN CARNES MRN: [facility]:[id number] date: 1960 Sex: F Assigned Patient Location: ICU Current Patient Location: ICU Accession/Order Number: [id number] Exam Date: 04/26/2024 06:48 Report Date: 04/26/2024 [...] M.D. Signed By: 04/26/24710 DD/ 7 TD/TT: Cake Winder: [place] [address] XRay Report Signed Patient: SABRINA CARNES MR#: [id number] : 1960 Acct:[id number] Age/Sex: 63 / F ADM Date: 04/25/24 Loc: ICU 274-[address]: Mark Maxwell M.D. Ordering Physician: Landon Maxwell M.D. Date of Service: 04/26/24 Procedure(s): XR abdomen 1V Accession Number(s): [id number] cc: Latosha Olmstead NP ; Landon Maxwell M.D. The [place] [id number] Patient Name: AISLINN CARNES MRN: [id number] date: 1960 Sex: F Assigned Patient Loc ation: ICU Current Patient Loca tion: ICU Accession/Order Numb er: [id number] Exam Date: 04/26/2024 06:48 Report Date: 04/26/2024 [...] M.D. Signed By: 04/26/24710 DD/ 7 TD/TT: Cake Winder: CBC AUTO DIFF Reviewed date:04/28/2024 08:05:24 PM Interpretation: Performing Lab: Notes/Report: The [facility] , White Blood Count 6.9 4.0-11.0 10 [...] 0.00-0.03 10 3/uL Performing Lab: see note - [facility] LB PROF CHEM 8 (AI Merchant METB) Reviewed date:04/28/2024 08:05:24 PM Interpretation: Performing Lab: Notes/Report: The [facility] , Sodium 143 136-145 mmol/L Potassium 4.5 3.5-5.1 mmol/L Chloride 113 98-107 mmol/L Carbon Dioxide 20.0 21.0-32.0 mmol/L Anion Gap 14.5 Glucose 97 74-106 mg/dL Blood Urea Nitrogen 29.0 7.0-18.0 mg/dL Creatinine 1.99 0.55-1.02 mg/dL Estimated GFR ( Va 30 >=60 Estimated GFR (Non- [place]a 25 >=60 BUN Creatinine Ratio 14.6 Calcium 7.8 8.5-10.1 mg/dL Performing Lab: see note ML - The [facility] LB PROF CHEM 8 (BAS METB) (Not yet reviewed by provider) Interpretation: Performing Lab: Notes/Report: The [facility] , Sodium 136 136-145 mmol/L Potassium 5.9 [...] Performing Lab: see note ML - The [facility] LB ECG 12 lead (Not yet reviewe d by provider) Interpretation: Performing Lab: Notes/Report: Source Facility: [facility]-[address] [place] [address] [place] [address] Electrocardiograph Report Signed Patient: AISLINN CARNES MR#: [id number] : 1960 Acct:[id number] Age/Sex: 64 / F ADM Date: 11/21/24 Loc: PST Attending Dr: Ramon Enrique D.P.M. Ordering Physician: Ramon Enrique D.P.M. Date of Service: 11/21/24 Procedure(s): ECG 12 lead Accession Number(s): [id number] cc: [facility] Test Date: 2024-11-21 Pat Name: AISLINN CARNES Department: Room: - Gender: Female Agricultural Commodities Grader: : 1960 Requested By: RAMON ENRIQUE Order Number: [id number] Reading MD: PADILLA MUKHERJEE M.D. Measurements Intervals [place] Rate: 57 P: 52 AR: 183 QRS: 45 QRSD: 82 T: 54 QT: 452 QTc: 441 Interpretive Statements SINUS BRADYCARDIA Otherwise normal ECG Compared to ECG 09/04/2024 13:57:55 No significant change Electronically Signed On 11-22-2024 15:11:41 EDT by PADILLA MUKHERJEE M.D. Dictated By: PADILLA MUKHERJEE Signed By: 11/22/241510 DD/ 30 TD/TT: Cake Winder: [place] [address] Electrocardiograph Report Signed Patient: SABRINA CARNES MR#: [id number] : 1960 Acct:[id number] Age/Sex: 64 / F ADM Date: 11/21/24 Loc: PST Attending Dr: Ramon Enrique D.P.M. Ordering Physician: Ramon Enrique D.P.M. Date of Service: 11/21/24 Procedure(s): ECG 12 lead Accession Number(s): [id number] cc: The [facility] Test Date: 2024-11-21 Pat Name: AISLINN BENNETT Department: 55 Room: - Gender: Female Agricultural Commodities Grader: : 1960 Requ ested By: RAMON ENRIQUE Order Number: [id number] Reading MD: PADILLA MUKHERJEE M.D. Measurements Intervals [place] Rate: 57 P: 52 AR: 183 QRS: 45 QRSD: 82 T: 54 QT: 452 QTc: 441 Interpretive Statements SINUS BRADYCARDIA Otherwise normal ECG Compared to ECG 08/21 13:57:55 No significant change Electronically Eli d On 11-22-2024 15:11:41 EDT by PADILLA MUKHERJEE M.D. Dictated By: PADILLA MUKHERJEE Signed By: 11/22/241510 DD/ 30 TD/TT: Cake Winder: Reason For Referral No Information Medications Medication SIG (Take, Route, Frequency, Duration) Notes Start Date End Date Status Metoprolol Succinate 50 MG 1 capsule Ora lly Once a day 02/19/2025 Active Lyrica 150 MG 1 capsule orally thr ee times daily Active Iron Active Lantus SoloStar 100 u/ml 40 units subQ at HS Active metFORMIN HCl Unkno wn Cardizem Unknown [place] 325 mg-5 mg 1.5 tablet orally th [...] Problem Status W/U Status Risk Notes Problem 08967957 Type 2 diabetes mellitus with diabetic polyneuropathy (E11.42) Active confirmed Problem 31504649000982603 Type 2 diabete s mellitus with foot ulcer (E11.621) Active confirmed Problem Skin ulcer associate d with diabetes mellitus (386621506) Type 2 diabetes mellitus with other skin ulcer (E11.622) Active confirmed Problem Chronic ulcer of marilu t (834403921) Non-pressure chronic ulcer of right heel and midfoot limited to breakdown of skin (L97.411) Active confirmed Problem 24373665571944191 Non-pressure c hronic ulcer of other part of left foot limited to breakdown of skin (L97.521) Active confirmed Problem Non-pressure chr onic ulcer of other part of left lower leg with fat layer exposed (L97.822) Active confirmed Problem 148170475 Charcot's joint, left ankle and foot (M14.672) Active confirmed Problem 818936926655651 Pain in left marilu t (M79.672) Active confirmed Problem 44701759 Displaced fractu re of fifth metatarsal bone, left foot, initial encounter for closed fracture (S92.352A) Active confirmed Problem Chest pain (83980496) Chest pain (R07.9) Active confirmed Problem 903018517 Diabetic periphe ral neuropathy (E11.42) Active confirmed Problem Asthma (770267348) Asthma (J45.909) Active conf irmed Problem Anemia (374206518) Anemia (D64.9) Active confir med Problem Osteoporosis (03214771) Osteoporosis (M81.0) Active confirmed Problem Irritable bowel syndrome (18281841) Irritable bowel syndrome (K58.9) Active confirmed Problem Iron deficiency anemia (89032091) Anemia, iron deficiency (D50.9) Active confirmed Problem Liver disease (032061921) Liver disease (K76.9) Active confirmed Problem History of cancer (218022161) History of cancer (Z85.9) Active confirmed Problem Essential hypertension (34379935) BP (high blood pressure) (I10) Active confirmed Problem Hypercholesterolemia (14259619) Hypercholesterolemia (E78.00) Active confirmed Problem 14773418865131683 Non-pressure c hronic ulcer of other part of left foot with muscle involvement without evidence of necrosis (L97.525) Active confirmed Problem 23709456 History of amput ation (Z89.9) Active confirmed Problem Chronic ulcer of right heel with fat layer exposed (L97.412) Active confirmed Problem Diabetes mellitus (64952193) Diabetes mellitus (E11.9) Active confirmed Problem Chronic ulcer of left heel with fat layer exposed (L97.422) Active confirmed Problem Skin ulcer associate d with diabetes mellitus (302294812) Controlled type 2 diabetes mellitus with other skin ulcer, unspecified whether longterm insulin use (E11.622) Active confirmed Problem Chronic ulcer of left foot with fat layer exposed (L97.522) Active confirmed Problem 024471664 Closed fracture of neck of metatarsal bone of left foot with malunion, subsequent encounter (S92.302P) Active confirmed Vital Signs Blood pressure diastolic 86 mm Hg 02/19/2025 Height 60 in 02/19/2025 Blood pressure systolic 144 mm Hg 02/19/2025 Weight 130.2 lbs 02/19/2025 BMI 25.43 kg/m2 02/19/2025 Encounters Encounter Location Date Provider Diagnosis [facility] [address] [place] [address] 02/13/2025 Ramirez Maxwell [facility] [address] [place] [address] 02/19/2025 Ramirez Maxwell Liver disease K76.9 ; [...] Date [employer] AD[employer] PLAN [address] [address] [place] [address] [id number] Aislinn Carnes Self - patient is the [...] K76.9 Osteoporosis M81.0 Surgical History Surgery Date(Month/Year) Nephrectomy Knee arthroscopy History of arthroscopy of the shoulder History of cholecystectomy History of hysterectomy History of musculoskeletal procedures An betty; Elbow Nerve History of neck surgery Surgical / procedural history Wrist Carp al Tunnel amputation mid left first metatarsal Cataract extraction CHOLECYSTECTOMY
--- OUTSIDE RECORDS SUMMARY | 2025-04-16 18:50 | XMS_ITS | Encounter Summary ---
Author Organization [facility] [employer] LITTLE [employer]LD [facility] tem Address [id number] [address] [place] [address] Care Team Providers Care Premium Card Cancellation Clerk Name Role Phone Kapil Marr MD Primary Care Provider [phone] Reason for Visit * Reason Onset Date Comments Med Refill 03/12/2020 Encounter Details Date Type Department Care Team (Late Contact Info) Description 03/12/2020 Refill [facility] [address] [place] [address] Sumi Linton RN Complex regional [...] 12:15 PM EDT Office Visit [facility] [address] [place] [address] Gertrude Li, PAJuan JoseC [address], [address] [place] [address] documented as of this encounter Visit Diagnoses Diagnosis Complex regional pain syndrome type 1 of right upper extremity documented in this encounter Additional Health Concerns Infection Onset Date Last Indicated Resolved Time COVID-19 Positive 09/28/2021 09/28/2021 10/19/2021 11:12 PM EST documented as of this encounter Care Teams Premium Card Cancellation Clerk Relationship Specialty Start Date End Date Kapil Marr MD [address] [place] [address] PCP - General Family Medicine 02/19/25 documented as of this encounter
--- OUTSIDE RECORDS SUMMARY | 2025-04-16 18:50 | XMS_ITS | Encounter Summary ---
Author Organization [facility] Address [address] [place] [address] Care Team Providers Care Form Tamping Machine Operator Name Role Phone Lisa Porras MD Unavailable Latosha Olmstead Primary Care Provider Latosha Chanel Unavailable Unavailable Source Comments In the event this information is protected by the Federal Confidentiality of Alcohol and Drug AbusePatient Records regulations: The Federal rules restrict any use of the information to criminally investigate or prosecute any alcohol or drug abuse patient.[facility] Encounter Details Date Type Department Care Team (Late st Contact Info) Description 02/12/2024 Patient Msg Urology [address] [place] [address] Manolo Ballard MD [address] [place] [address] CT scan Social History Tobacco [...] or slept in a chcf (including now)? Patient refused 08/31/2023 Housing Stability [...] is lower risk 8 05/17/2023 Data from: https://www.neighborhoodatlas.medicine.[facility].edu/. Last address used for calculation [address] [...] on filedocumented in this encounter Care Teams Form Tamping Machine Operator Relationship Specialty Start Date End Date Latosha Olmstead [address] [place] [address] PCP - General 05/17/23 Lisa Porras MD [address] [place] [address] Referring Urology 05/11/23 Latosha Olmstead [address] [place] [address] Referring 01/04/24 documented as of this encounter
--- OUTSIDE RECORDS SUMMARY | 2025-04-16 18:50 | XMS_ITS | Encounter Summary ---
Author Organization [employer] [facility] tem Address [facility] [id number] [address] [place] [address] Care Team Providers Care Aircraft Restorer Name Role Phone Kapil Marr MD Primary Care Provider [phone] Encounter Details Date Type Department Care Team (Late st Contact Info) Description 01/06/2021 Telephone [facility] [address] [place] [address] [place] [address] [place] [address] Linda Cardenas I, PA [address] [place] [address] Social History Tobacco Use Types Packs/Day Years [...] Upcoming Encounters Date Type Department Care Team ([facility] Contact Info) Description 06/18/2025 12:15 PM EDT Office Visit [facility] [address] [place] [address] Gertrude Li PA-C [address] [place] [address] documented as of this encounter Visit Diagnoses Not on filedocumented in this encounter Additional Health Concerns Infection Onset Date Last Indicated Resolved Time COVID-19 Positive 09/28/2021 09/28/2021 10/19/2021 11:12 PM EST documented as of this encounter Care Teams Aircraft Restorer Relationship Specialty Start Date End Date Kapil Marr MD [address] [facility] [place] [address] PCP - General Family Medicine 02/19/25 documented as of this encounter
--- OUTSIDE RECORDS SUMMARY | 2025-04-16 18:50 | XMS_ITS | Clinical Summary ---
Author Organization [facility] Address [address] [facility], [address] [place] [address] Care Team Providers Care Recordist Name Role Phone Unavailable Primary Care Provider [...]
--- OUTSIDE RECORDS SUMMARY | 2025-04-16 18:50 | XMS_ITS | Encounter Summary ---
Author Organization [facility] tem Address [id number] [address] [place] [address] Care Team Providers Care Back Up Worker Name Role Phone Kapil Marr MD Primary Care Provider [phone] Encounter Details Date Type Department Care Team (Late st Contact Info) Description 02/28/2025 Orders Only [facility] [address] [place] [address] Barbara Lucero RN Reflex sympathetic dystrophy of [...] Recorded Do you need help finding a [employer] ocal career center and/or a training program? [...] Hospital - Pain Management Clinic [address] [place] [phone] Gertrude Li, PA-C [address], [address] [place] [address] documented as of this encounter Visit Diagnoses Diagnosis Reflex sympathetic dystrophy of right upper extremity- Primary Encounter for long-term use of opiate analgesic Encounter for long-term (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 of other medications documented in this encounter Care Teams Back Up Worker Relationship Specialty Start Date End Date Kapil Marr MD [address] [facility], [place] [address] PCP - General Family Medicine 02/19/25 documented as of this encounter
--- OUTSIDE RECORDS SUMMARY | 2025-04-16 18:50 | XMS_ITS | Encounter Summary ---
Author Organization [facility] Charge Payment [facility] tem Address [facility] [id number] [address] [place] [address] Care Team Providers Care Zipper Sewing Machine Operator Name Role Phone Kapil Marr MD Primary Care Provider [phone] Reason for Visit * Reason Onset Date Comments Med Refill 06/05/2018 Encounter Details Date Type Department Care Team (Late st Contact Info) Description 06/05/2018 Refill [facility] [address] [place] [address] Sumi Linton RN Reflex sympathetic [...] 3:07 PM EDT Lu[facility] called to [facility] in [place], [place]. Radha Abrams RN 06/08/18 1344 documented in this encounter Plan of Treatment Upcoming Encounters Date Type Department Care Team ([facility] Contact Info) Description 06/18/2025 12:15 PM EDT Office Visit [facility] [address] [place] [address] Gertrude Li PA-C [address] [place] [address] documented as of this encounter Visit Diagnoses Diagnosis Reflex sympathetic dystrophy of right upper extremity documented in this encounter Additional Health Concerns Infection Onset Date Last Indicated Resolved Time COVID-19 Positive 09/28/2021 09/28/2021 10/19/2021 11:12 PM EST documented as of this encounter Care Teams Zipper Sewing Machine Operator Relationship Specialty Start Date End Date Kapil Marr MD [address] [place] [address] PCP - General Family Medicine 02/19/25 documented as of this encounter
--- OUTSIDE RECORDS SUMMARY | 2025-04-16 18:50 | XMS_ITS | Clinical Summary ---
Author Organization [facility] Address [address] [place] [address] Care Team Providers Care Computer Systems Support Specialist Name Role Phone Unavailable Primary Care Provider [...]
--- OUTSIDE RECORDS SUMMARY | 2025-04-16 18:50 | XMS_ITS | Encounter Summary ---
Author Organization [facility] tem Address [id number] [address] [place] [address] Care Team Providers Care Motor Patrol Operator Name Role Phone Kapil Marr MD Primary Care Provider [phone] Reason for Visit * Reason Onset Date Comments Med Refill 08/09/2017 Encounter Details Date Type Department Care Team (Late Contact Info) Description 08/09/2017 Refill [facility] [address] [place] [address] Barbara Lucero RN Reflex sympathetic [...] encounter Miscellaneous Notes * Telephone Encounter - Barbaar Lucero RN - 08/09/2017 11:33 AM EST Last OV: 08/02/17 Next OV: Pending procedure approval OARRS appropriate: Yes Last UDS: 03/23/17 Barbara Lucero RN 08/09/17 1137 documented in this encounter Plan of Treatment Upcoming Encounters Date Type Department Care Team (Late Contact Info) Description 06/18/2025 12:15 PM EDT Office Visit [facility] [address] [place] [address] Gertrude Li, PAJuan JoseC [address], [address] [place], [place] [address] documented as of this encounter Visit Diagnoses Diagnosis Reflex sympathetic dystrophy of right upper extremity- Primary documented in this encounter Additional Health Concerns Infection Onset Date Last Indicated Resolved Time COVID-19 Positive 09/28/2021 09/28/2021 10/19/2021 11:12 PM EST documented as of this encounter Care Teams Motor Patrol Operator Relationship Specialty Start Date End Date Kapil Marr MD [address] [place] [address] PCP - General Family Medicine 02/19/25 documented as of this encounter
--- OUTSIDE RECORDS SUMMARY | 2025-04-16 18:50 | XMS_ITS | Encounter Summary ---
Author Organization [facility] Address [address] [place] [address] Care Team Providers Care Greenhouse Manager Name Role Phone Kofi Gotti MD Primary Care Provider Unallocated, Noms Provider Primary Care Provi emiliana Latosha Olmstead GEODESIST Unavailable [phone] Kofi Gotti MD Primary Care Provider [phone] Ninfa Canela MA Unavailable [phone] Unallocated, Noms Provider Primary Care Provi emiliana Encounter Details Date Type Department Care Team (Late st Contact Info) Description 05/13/2024 Orders Only [facility] [address] [place] [address] Latosha Olmstead, GEODESIST [address] [place] [address] Social History Tobacco Use Types Packs/Day Years [...] often do you attend chur ch or judaism services? Never 10/11/2023 Do you [...] Recorded Patient Health Questionnaire-2 Score 2 01/17/2024 [facility] Occupat [facility] Health - Occupational Stress [...] (05/13/2024 1:48 PM EDT) us Latosha Olmstead GEODESIST LAB CHG PERFORMABLES Final Resu lt documented in this encounter Visit Diagnoses Not on filedocumented in this encounter Additional Health Concerns Assessment Noted Time PHQ-9 Depression Total Score: 6 10/11/19 3:16 PM EST documented as of this encounter Care Teams Greenhouse Manager Relationship Specialty Start Date End Date Kofi Gotti MD [address] [place] [address] PCP - General Family Medicine 10/09/23 06/10/24 Unallocated, Jah Mirza MD [address] [place] [address] PCP - General Family Medicine 06/11/24 06/19/24 Kofi Gotti MD [address] [place] [address] PCP - General Family Medicine 06/20/24 02/02/25 Unallocated, Jah Mirza MD [address] [place] [address] PCP - General Family Medicine 02/03/25 Latosha Olmstead NP [address] [place] [address] Nurse Practitioner Family Medicine 06/11/24 02/02/25 Ninfa Canela, JOHNNY [address] [place] [address] Family Medicine 09/13/24 01/30/25 documented as of this encounter
--- OUTSIDE RECORDS SUMMARY | 2025-04-16 18:50 | XMS_ITS | Encounter Summary ---
Author Organization [facility] tem Address [id number] [address] [place] [address] Care Team Providers Care Bellmaker Name Role Phone Kapil Marr MD Primary Care Provider [phone] Reason for Visit * Reason Onset Date Comments Hospitalization 06/16/2022 Encounter Details Date Type Department Care Team (Late st Contact Info) Description 06/16/2022 Telephone [facility] [address] [place] [address] Barbara Lucero RN Hospitalization Social [...] often do you attend chur ch or mandaeism services? Patient declined 08/13/2020 Do you belong to any clubs o r organizations such as gnosticist groups, unions, fraternal or athletic groups, or [...] Recorded Do you need help finding a [employer] center and/or a training program? No 08/13/2020 [...] about a week and was transferred to [facility] today where she will be for [...] Description 06/18/2025 12:15 PM EDT Office Visit [facility] [address] [place] [address] Gertrude Li, PAJuan JoseC [address], [address] [place], [place] [address] documented as of this encounter Visit Diagnoses Not on filedocumented in this encounter Care Teams Bellmaker Relationship Specialty Start Date End Date Kapil Marr MD [address] [place] [address] PCP - General Family Medicine 02/19/25 documented as of this encounter
--- OUTSIDE RECORDS SUMMARY | 2025-04-16 18:50 | XMS_ITS | Encounter Summary ---
Author Organization [facility] [employer] [facility] tem Address [facility] [id number] [address] [place] [address] Care Team Providers Care Marine Technician Name Role Phone Kapil Marr MD Primary Care Provider [phone] Reason for Visit * Reason Onset Date Comments Med Refill 10/05/2018 Encounter Details Date Type Department Care Team (Late st Contact Info) Description 10/05/2018 Refill [facility] [address] [place] [address] Barbara Lucero RN Reflex sympathetic dystrophy of [...] Description 06/18/2025 12:15 PM EDT Office Visit [facility] [address] [place] [address] Gertrude Li PA-C [address], [address] [place], [place] [address] documented as of this encounter Visit Diagnoses Diagnosis Reflex sympathetic dystrophy of right upper extremity documented in this encounter Additional Health Concerns Infection Onset Date Last Indicated Resolved Time COVID-19 Positive 09/28/2021 09/28/2021 10/19/2021 11:12 PM EST documented as of this encounter Care Teams Marine Technician Relationship Specialty Start Date End Date Kapil Marr MD [address] [place] [address] PCP - General Family Medicine 02/19/25 documented as of this encounter
--- OUTSIDE RECORDS SUMMARY | 2025-04-16 18:50 | XMS_ITS | Encounter Summary ---
Author Organization [employer] tem Address [id number] [address] [place] [address] Care Team Providers Care School Of Nursing Director Name Role Phone Kapil Marr MD Primary Care Provider [phone] Encounter Details Date Type Department Care Team (Late st Contact Info) Description 03/09/2021 Abstract Tena Villafana [facility] - Medical Oncology [address] [place] [address] Aj Magdaleno MD [facility] [address] [place] [address] Social History Tobacco Use Types Packs/Day Years [...] you attend chur ch or mormonism services? Patient declined 08/13/2020 Do you belong to any clubs o r organizations such as moravian groups, unions, fraternal or athletic groups, or [...] Recorded Do you need help finding a [employer] meevl center and/or a training program? No 08/13/2020 [...] Hospital - Pain Management Clinic [address] [place] [address] Gertrude Li, PAJuan JoseC [address], [address] [place] [address] documented as of this encounter Visit Diagnoses Not on filedocumented in this encounter Additional Health Concerns Infection Onset Date Last Indicated Resolved Time COVID-19 Positive 09/28/2021 09/28/2021 10/19/2021 11:12 PM EST documented as of this encounter Care Teams School Of Nursing Director Relationship Specialty Start Date End Date Kapil Marr MD [address] [place] [address] PCP - General Family Medicine 02/19/25 documented as of this encounter
--- OUTSIDE RECORDS SUMMARY | 2025-04-16 18:50 | XMS_ITS | Encounter Summary ---
Author Organization [facility] Address [address] [place] [address] Care Team Providers Care Staff Sonographer Name Role Phone Lisa Porras MD Unavailable Latosha Olmstead Primary Care Provider Latosha Chanel Unavailable Unavailable Source Comments In the event this information is protected by the Federal Confidentiality of Alcohol and Drug AbusePatient Records regulations: The Federal rules restrict any use of the information to criminally investigate or prosecute any alcohol or drug abuse patient.[facility] Encounter Details Date Type Department Care Team (Late st Contact Info) Description 04/09/2024 Patient Msg Urology [address] [place], [place] [phone] Jennifer Nolen MD [address] [place] [address] Please complete your Pre-Check IN [...] place to sleep or slept in a fci (including now)? Patient refused 08/31/2023 Housing Stability [...] is lower risk 8 05/17/2023 Data from: https://www.neighborhoodatlas.medicine.[facility].edu/. Last address used for calculation [address] [...] on filedocumented in this encounter Care Teams Staff Sonographer Relationship Specialty Start Date End Date Latosha Olmstead [address] [place] [address] PCP - General 05/17/23 Lisa Porras MD [address] [place] [address] Referring Urology 05/11/23 Latosha Olmstead [address] [place] [address] Referring 01/04/24 documented as of this encounter
--- OUTSIDE RECORDS SUMMARY | 2025-04-16 18:50 | XMS_ITS | Clinical Summary ---
Author Organization [facility] Address [address] [place] [address] Care Team Providers Care Resident Services Manager Name Role Phone Lisa Porras MD [...] had surgeries. Follows with pain management at [facility]-- on Lyrica and Brooks Neurogenic bladder 06/06/2023 Assessment & Plan (06/06/2023 1:32 PM EDT): Assessment: Previous had to self cath Gets botox injections and no longer has to cath Follows with Dr. Porras at [facility] Stage 3a chronic kidney disease 06/06/2023 Assessment & Plan (06/15/2023 1:18 PM EDT): Assessment: follows with nephrology at [facility] Repeat labs scanned Potassium 4.9 Cr [...] Assessment: on insulin managed by endocrinology at [facility], saw KIARA 06/08 and had insulin [...] is lower risk 8 05/17/2023 Data from: https://www.neighborhoodatlas.medicine.[facility].edu/. Last address used for calculation [address] [...] - 0.96 mg/dL 02/01/2024 2:49 PM EDT [facility] Estimated Glomerular Filtration Rate 31(L) >=60 mL/min/1.7 3m 02/01/2024 2:49 PM EDT [facility] Comment:Estimated Glomerular Filtration Rate [...] Manolo Ballard MD LABORATORY Final Resul t [facility] [address] [place] [address] * (ABNORMAL) CBC (09/03/2023 4:41 AM EST) WBC 6.44 3.70 - 11.00 k/uL 09/03/2023 5:16 AM EST [facility] RBC 3.70(L) 3.90 - 5.20 m/uL 09/03/2023 5:16 AM EST [facility] Hemoglobin 8.9(L) 11.5 - 15.5 g/dL 09/03/2023 5:16 AM [facility] Hematocrit 28.7(L) 36.0 - 46.0 % 09/03/2023 5:16 AM [facility] MCV 77.6(L) 80.0 - 100.0 fL 09/03/2023 5:16 AM [facility] MCH 24.1(L) 26.0 - 34.0 pg 09/03/2023 5:16 AM [facility] MCHC 31.0 30.5 - 36.0 g/dL 09/03/2023 5:16 AM [facility] RDW-CV 14.6 11.5 - 15.0 % 09/03/2023 5:16 AM [facility] Platelet Count 334 150 - 400 k/uL 09/03/2023 5:16 AM [facility] MPV 10.8 9.0 - 12.7 fL 09/03/2023 5:16 AM [facility] Absolute nRBC <0.01 <0.01 k/uL 09/03/2023 5:16 AM [facility] Blood BLOOD SPECIMEN / Unknown Venipuncture / Unknown 09/03/2023 4:41 AM EST 09/03/2023 5:08 AM EST us Luis Barrow MD LABORATORY Final Result Performing Organization Address City/State/[facility] Co de Phone Number [facility] [address] * (ABNORMAL) HGB A1C (06/06/2023 1:29 PM EDT) [facility] Hemoglobin A1C 13.3(H) 4.3 - 5.6 % 06/07/2023 5:04 AM EDT [facility] Comment:[place] Diabetes As sociation guidelines indicate that patients with HgbA1c in the range 5.7-6.4% are at increased risk for development of diabetes, and intervention by lifestyle modification may be beneficial. HgbA1c greater or equal to 6.5% is considered diagnostic of diabetes. Estimated Average Glucose 335 mg/dL 06/07/2023 5:04 AM EDT [facility] Comment:eAG: (Estimated aver age glucose) is a calculated value from HgbA1c and is support representative of the average blood glucose level in the last 2-3 month period. Blood BLOOD SPECIMEN / Unknown Venipuncture / Unknown 06/06/2023 1:29 PM EDT 06/06/2023 1:30 PM EDT us Jenny Batres REMEDIATION CONSULTANT.[facility] LABOR[facility] Final Res ult [facility] [address] [facility] [address] [place] [address], [place] from Last 3 Months or Most Recently Relevant to Health Maintenance Insurance [employer] Care Teams Resident Services Manager Relationship Specialty Start Date End Date Latosha Olmstead [address] [place] [address] PCP - General 05/17/23 Lisa Porras MD [address] [place] [address] Referring Urology 05/11/23 Latosha Olmstead [address] [place] [address] Referring 01/04/24
--- OUTSIDE RECORDS SUMMARY | 2025-04-16 18:50 | XMS_ITS | Encounter Summary ---
Author Organization [facility] Address [address] [place] [address] Care Team Providers Care Holder Pile Driving Name Role Phone Kofi Gotti MD Primary Care Provider Unallocated, Noms Provider Primary Care Provi emiliana Latosha Olmstead GUI DEVELOPER Unavailable [phone] Kofi Gotti MD Primary Care Provider Ninfa Canela MA Unavailable [phone] Unallocated, Noms Provider Primary Care Provi emiliana Encounter Details Date Type Department Care Team (Late st Contact Info) Description 04/18/2024 Orders Only [facility] [address] [place] [address] Latosha Olmstead, GUI DEVELOPER [address] [place] [address] Social History Tobacco Use Types Packs/Day Years [...] you attend chur ch or sikhism services? Never 10/11/2023 Do you belong to any clubs o r organizations such as congregation groups, unions, fraternal or athletic groups, or [...] Recorded Patient Health Questionnaire-2 Score 2 01/17/2024 [facility] [place] of Occupat ionpr Health - Occupational Stress Questionnaire Answer Date [...] Chest Radiographic Cristiana ging us Latosha Olmstead GUI DEVELOPER IMG XR PROCEDURES Final Result documented in this encounter Visit Diagnoses Not on filedocumented in this encounter Additional Health Concerns Assessment Noted Time PHQ-9 Depression Total Score: 6 10/11/19 24 3:16 PM EST documented as of this encounter Care Teams Holder Pile Driving Relationship Specialty Start Date End Date Kofi Gotti MD [address] [place] [address] PCP - General Family Medicine 10/09/23 06/10/24 Unallocated, Jah Mirza MD [address] [place] [address] PCP - General Family Medicine 06/11/24 06/19/24 Kofi Gotti MD [address] [place] [address] PCP - General Family Medicine 06/20/24 02/02/25 Unallocated, Jah Mirza MD [address] [place] [address] PCP - General Family Medicine 02/03/25 Latosha Olmstead NP [address] [place] [address] Nurse Practitioner Family Medicine 06/11/24 02/02/25 Ninfa Canela MA [address] [place] [address] Family Medicine 09/13/24 01/30/25 documented as of this encounter
--- OUTSIDE RECORDS SUMMARY | 2025-04-16 18:50 | XMS_ITS | Encounter Summary ---
Author Organization [facility] [employer] [facility] tem Address [id number] [address] [place] [address] Care Team Providers Care Cellophane Casting Machine Repairer Name Role Phone Kapil Marr MD Primary Care Provider [phone] Reason for Visit * Reason Onset Date Comments Med Refill 03/19/2025 Encounter Details Date Type Department Care Team (Late st Contact Info) Description 03/19/2025 Refill [facility] [address] [place] [address] Virginia Pierce, RN Social History Tobacco Use [...] you attend chur ch or christianity services? Patient declined 08/13/2020 Do you belong [...] Recorded Do you need help finding a [employer] ocIBillionaire career center and/or a training program? No [...] 12:15 PM EDT Office Visit [facility] [address] [place] [address] Gertrude Li, PA-C [address], [address] [place] [address] documented as of this encounter Visit Diagnoses Not on filedocumented in this encounter Care Teams Cellophane Casting Machine Repairer Relationship Specialty Start Date End Date Kapil Marr MD [address] [facility], [place] [address] PCP - General Family Medicine 02/19/25 documented as of this encounter
--- OUTSIDE RECORDS SUMMARY | 2025-04-16 18:50 | XMS_ITS | Encounter Summary ---
Author Organization [facility] Address [address] [place] [address] Care Team Providers Care Eyeglass Cutter Name Role Phone Latosha Olmstead NP Unavailable [phone] Kofi Gotti MD Primary Care Provider Mel Canela MA Unavailable [phone] Unallocated, Noms Provider Primary Care Provi emiliana Reason for Visit * Reason Comments Med Refill Encounter Details Date Type Department Care Team (Late st Contact Info) Description 10/15/2024 Refill [facility] [address] [place] [address] Latosha Olmstead, WELL DRILLER HELPER [address] [place] [address] Type 2 diabetes mellitus with diabetic neuropathy, with long-term current use of insulin ([facility]); Type 2 diabetes mellitus with hyperglycemia, with long-term current use of insulin (HCC); supervisor 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s (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 ([facility]) Social History Tobacco Use Types Packs/Day Years [...] Patient Health Questionnaire-2 Score 2 01/17/2024 [facility] [place] of Occupat ional Health - Occupational Stress [...] with long-term current use of insulin (HCC) half-way (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 (HCC) documented in this encounter Additional Health Concerns Assessment Noted Time PHQ-9 Depression Total Score: 6 10/11/19 24 3:16 PM EST documented as of this encounter Care Teams Eyeglass Cutter Relationship Specialty Start Date End Date Kofi Gotti MD [address] [place] [address] PCP - General Family Medicine 06/20/24 02/02/25 Unallocated, Jah Mirza MD [address] [place] [address] PCP - General Family Medicine 02/03/25 Latosha Olmstead NP [address] [place] [address] Nurse Practitioner Family Medicine 06/11/24 02/02/25 Mel Canela MA [address] [place] [address] Family Medicine 09/13/24 01/30/25 documented as of this encounter
--- OUTSIDE RECORDS SUMMARY | 2025-04-16 18:50 | XMS_ITS | Encounter Summary ---
Author Organization [facility] [facility] tem Address [id number] [address] [place] [address] Care Team Providers Care Boarding Mother Name Role Phone Kapil Marr MD Primary Care Provider [phone] Encounter Details Date Type Department Care Team (Late st Contact Info) Description 04/26/2022 Telephone [facility] [address] [place] [address] Yesenia Burnett RN Social History Tobacco Use [...] often do you attend chur ch or buddhist services? Patient declined 08/13/2020 Do you belong to any clubs o r organizations such as congregational groups, unions, fraternal or athletic groups, or [...] Recorded Do you need help finding a [facility] [employer] center and/or a training program? No 08/13/2020 [...] AM EDT Call placed to [facility] re: prior auth request for pregabalin. Cotton Jammer spoke with Paige andasked if script had been submitted through [facility]. Paige checks into this and verifies that script went[facility] and patient has $0 co-pay. documented in this encounter Plan of Treatment Upcoming Encounters Date Type Department Care Team (Late st Contact Info) Description 06/18/2025 12:15 PM EDT Office Visit [facility] [address] [place] [address] Gertrude Li PA-C [address], [address] [place] [address] documented as of this encounter Visit Diagnoses Not on filedocumented in this encounter Care Teams Boarding Mother Relationship Specialty Start Date End Date Kapil Marr MD [address] [facility] [place] [address] PCP - General Family Medicine 02/19/25 documented as of this encounter
--- OUTSIDE RECORDS SUMMARY | 2025-04-16 18:50 | XMS_ITS | Encounter Summary ---
Author Organization [facility] Address [address] [place] [address] Care Team Providers Care Security Checker Name Role Phone Kofi Gotti MD Primary Care Provider [phone] Unallocated, Noms Provider Primary Care Provi emiliana Latosha Olmstead ELECTRICAL MANUFACTURING TECHNICIAN Unavailable [phone] Kofi Gotti MD Primary Care Provider Ninfa Canela MA Unavailable [phone] Unallocated, Noms Provider Primary Care Provi emiliana Encounter Details Date Type Department Care Team (Late st Contact Info) Description 04/29/2024 Orders Only [facility] [address] [place] [address] Latosha Olmstead, ELECTRICAL MANUFACTURING TECHNICIAN [address] [place] [address] Social History Tobacco Use Types Packs/Day Years [...] often do you attend chur ch or congregational services? Never 10/11/2023 Do you belong to [...] Recorded Patient Health Questionnaire-2 Score 2 01/17/2024 [facility] [place] of Occupat ionvt Health - Occupational Stress Questionnaire Answer Date [...] LABS (04/29/2024 10:21 AM EDT) Latosha Olmstead ELECTRICAL MANUFACTURING TECHNICIAN LAB CHG PERFORMABLES Final Resu lt documented in this encounter Visit Diagnoses Not on filedocumented in this encounter Additional Health Concerns Assessment Noted Time PHQ-9 Depression Total Score: 6 10/11/19 24 3:16 PM EST documented as of this encounter Care Teams Security Checker Relationship Specialty Start Date End Date Kofi Gotti MD [address] [place] [address] PCP - General Family Medicine 10/09/23 06/10/24 Unallocated, Noms ProviderMD [address] [place] [address] PCP - General Family Medicine 06/11/24 06/19/24 Kofi Gotti MD [address] [place] [address] PCP - General Family Medicine 06/20/24 02/02/25 Unallocated, Noms ProviderMD [address] [place] [address] PCP - General Family Medicine 02/03/25 Latosha Olmstead NP [address] [place] [address] Nurse Practitioner Family Medicine 06/11/24 02/02/25 Ninfa Canela MA [address] [place] [address] Family Medicine 09/13/24 01/30/25 documented as of this encounter
--- OUTSIDE RECORDS SUMMARY | 2025-04-16 18:50 | XMS_ITS | Encounter Summary ---
Author Organization [facility] Address [address] [facility] [place] [address] Care Team Providers Care Pit Clerk Name Role Phone Latosha Olmstead NP Unavailable [phone] Kofi Gotti MD Primary Care Provider Ninfa Canela MA Unavailable [phone] Unallocated, Noms Provider Primary Care Provi emiliana Encounter Details Date Type Department Care Team (Late st Contact Info) Description 08/15/2024 Orders Only [facility] [address] [place] [address] Latosha Olmstead, LUIS [address] [place] [address] [place] [address] Social History Tobacco Use Types Packs/Day Years [...] you attend chur ch or anglican services? Never 10/11/2023 Do you belong to any clubs o r organizations such as buddhist groups, unions, fraternal or athletic groups, or [...] Recorded Patient Health Questionnaire-2 Score 2 01/17/2024 [facility] of Occupat ional Health [...] documented as of this encounter Care Teams Pit Clerk Relationship Specialty Start Date End Date Kofi Gotti MD [address] [place] [address] PCP - General Family Medicine 06/20/24 02/02/25 Unallocated, Noms ProviderMD [address] [place] [address] PCP - General Family Medicine 02/03/25 Latosha Olmstead NP [address] [place] [address] Nurse Practitioner Family Medicine 06/11/24 02/02/25 Ninfa Canela, JOHNNY [address] [place] [address] Family Medicine 09/13/24 01/30/25 documented as of this encounter
--- OUTSIDE RECORDS SUMMARY | 2025-04-16 18:50 | XMS_ITS | Encounter Summary ---
Author Organization [facility] Address [address] [place] [address] Care Team Providers Care Exterior Work Helper Name Role Phone Kofi Gotti MD Primary Care Provider [phone] Unallocated, Noms Provider Primary Care Provi emiliana Latosha Olmstead BILLET WORKER Unavailable [phone] Kofi Gotti MD Primary Care Provider Ninfa Canela MA Unavailable [phone] Unallocated, Noms Provider Primary Care Provi emiliana Encounter Details Date Type Department Care Team (Late st Contact Info) Description 04/17/2024 Orders Only [facility] [address] [place] [address] Latosha Olmstead, BILLET WORKER [address] [place] [address] Social History Tobacco Use Types Packs/Day Years [...] you attend chur ch or restorationism services? Never 10/11/2023 Do you belong to any clubs o r organizations such as adventism groups, unions, fraternal or athletic groups, or [...] Recorded Patient Health Questionnaire-2 Score 2 01/17/2024 [facility] [place] of Occupat ionny Health - Occupational Stress Questionnaire Answer Date [...] documented as of this encounter Care Teams Exterior Work Helper Relationship Specialty Start Date End Date Kofi Gotti MD [address] [place] [address] PCP - General Family Medicine 10/09/23 06/10/24 Unallocated, Jah Mirza MD [address] [place] [address] PCP - General Family Medicine 06/11/24 06/19/24 Kofi Gotti MD [address] [place] [address] PCP - General Family Medicine 06/20/24 02/02/25 Unallocated, Jah Mirza MD [address] [place] [address] PCP - General Family Medicine 02/03/25 Latosha Olmstead NP [address] [place] [address] Nurse Practitioner Family Medicine 06/11/24 02/02/25 Ninfa Canela MA [address] [place] [address] Family Medicine 09/13/24 01/30/25 documented as of this encounter
--- OUTSIDE RECORDS SUMMARY | 2025-04-16 18:50 | XMS_ITS | Encounter Summary ---
Author Organization [facility] [employer] [facility] tem Address [id number] [address] [place] [address] Care Team Providers Care Golf Club Head Inspector Name Role Phone Kapil Marr MD Primary Care Provider [phone] Reason for Visit * Reason Onset Date Comments Med Refill 04/09/2018 Encounter Details Date Type Department Care Team (Late Contact Info) Description 04/09/2018 Refill [facility] [address] [place] [address] uSmi Linton, RN Reflex sympathetic dystrophy of right [...] 12:15 PM EDT Office Visit [facility] [address] [place] [address] Gertrude Li PA-C [address], [address] [place], [place] [address] documented as of this encounter Visit Diagnoses Diagnosis Reflex sympathetic dystrophy of right upper extremity documented in this encounter Additional Health Concerns Infection Onset Date Last Indicated Resolved Time COVID-19 Positive 09/28/2021 09/28/2021 10/19/2021 11:12 PM EST documented as of this encounter Care Teams Golf Club Head Inspector Relationship Specialty Start Date End Date Kapil Marr MD [address] [place] [address] PCP - General Family Medicine 02/19/25 documented as of this encounter
--- OUTSIDE RECORDS SUMMARY | 2025-04-16 18:50 | XMS_ITS | Encounter Summary ---
Author Organization [facility] Address [address] [place] [address] Care Team Providers Care Driver Material Handler Name Role Phone Kofi Gotti MD Primary Care Provider Unallocated, Noms Provider Primary Care Provi emiliana Latosha Olmstead NP Unavailable [phone] Kofi Gotti MD Primary Care Provider Ninfa Canela MA Unavailable [phone] Unallocated, Noms Provider Primary Care Provi emiliana Encounter Details Date Type Department Care Team (Late st Contact Info) Description 04/18/2024 Clinisync Result Encounter [facility] External Department Unsolicited Latosha Olmstead, SOOT BLOWER [address] [place] [address] Social History Tobacco Use Types Packs/Day Years [...] often do you attend chur ch or confucianist services? Never 10/11/2023 Do you belong to [...] Questionnaire-2 Score 2 01/17/2024 [facility] of Occupat ional Health - Occupational [...] or slept in a fci (including now)? No 10/11/2023 Comments Unknown Sex [...] EDT Narrative 04/18/2024 7:08 AM EDT The [address] [address] XRay Report Signed Patient: AISLINN CARNES MR#: [id number] : 1960 Acct:[id number] Age/Sex: 63 / F ADM Date: 04/17/24 Loc: MAMMO Attending Dr: Latosha Olmstead NP Ordering Physician: Latosha Olmstead NP Date of Service: 04/17/24 Procedure(s): XR chest 2V Accession Number(s): [id number] cc: Latosha Olmstead NP The [address] [address] Patient Name: AISLINN CARNES MRN: [facility]:[id number] date: 1960 Sex: F Assigned Patient Location: MAMMO Current Patient Location: Accession/Order Number: [id number] Exam Date: 04/17/2024 10:34 Report Date: 04/18/2024 [...] M.D. Signed By: 04/18/2408 DD/ 5 TD/TT: Handle Machine Operator: Procedure Note Radiology, Radiologist, MD - 04/18/2024 The [place] [id number] XRay Report Signed Patient: AISLINN CARNES MMR#: [id number] : 1960cct:[id number] Age/Sex: 63 / FADM Date: 04/17/24 Loc: MAMMO Attending Dr: Latosha Olmstead NP Ordering Physician: Latosha Olmstead NP Date of Service: 04/17/24 Procedure(s): XR chest 2V Accession Number(s): [id number] cc: Latosha Olmstead NP The [address] [id number] Patient Name: AISLINN CARNES MRN: [id number] date: 1960 Sex: F Assigned Patient Location: MAMMO Current Patient Location: Accession/Order Number: [id number] Exam Date: 04/17/2024 10:34 Report Date: 04/18/2024 [...] M.D. Signed By:04/18/24 0708 DD/ 0706 TD/TT: Handle Machine Operator: us Latosha Olmstead [facility] Final Result documented in this encounter Visit Diagnoses Not on filedocumented in this encounter Additional Health Concerns Assessment Noted Time PHQ-9 Depression Total Score: 6 10/11/19 24 3:16 PM EST documented as of this encounter Care Teams Driver Material Handler Relationship Specialty Start Date End Date Kofi Gotti MD [address] [place] [address] PCP - General Family Medicine 10/09/23 06/10/24 Unallocated, Noms MD [address] [address] PCP - General Family Medicine 06/11/24 06/19/24 Kofi Gotti MD [address] [place] [address] PCP - General Family Medicine 06/20/24 02/02/25 Unallocated, Noms MD Yuki [address] [place] [address] PCP - General Family Medicine 02/03/25 Latosha Olmstead NP [address] [place] [address] [place] [address] Nurse Practitioner Family Medicine 06/11/24 02/02/25 Ninfa Canela, JOHNNY [address] [place] [address] Family Medicine 09/13/24 01/30/25 documented as of this encounter
--- OUTSIDE RECORDS SUMMARY | 2025-04-16 18:50 | XMS_ITS | Encounter Summary ---
Author Organization [facility] Address [address] [place] [address] Care Team Providers Care Instructional Design Technologist Name Role Phone Latosha Olmstead NP Unavailable [phone] Kofi Gotti MD Primary Care Provider Ninfa Canela MA Unavailable [phone] Unallocated, Noms Provider Primary Care Provi emiliana Encounter Details Date Type Department Care Team (Late st Contact Info) Description 09/04/2024 Orders Only [facility] [address] [place] [address] Suha Vanegas MD [address] [place] [address] Social History Tobacco Use Types [...] Recorded Patient Health Questionnaire-2 Score 2 01/17/2024 [employer] of Occupat ional [facility] - Occupational Stress Questionnaire Answer [...] documented as of this encounter Care Teams Instructional Design Technologist Relationship Specialty Start Date End Date Kofi Gotti MD [address] [place] [address] PCP - General Family Medicine 06/20/24 02/02/25 Unallocated, Noms MD Yuki [address] [place] [address] PCP - General Family Medicine 02/03/25 Latosha Olmstead NP [address] [place] [address] Nurse Practitioner Family Medicine 06/11/24 02/02/25 Ninfa Canela, JOHNNY [address] [place] [address] Family Medicine 09/13/24 01/30/25 documented as of this encounter
--- OUTSIDE RECORDS SUMMARY | 2025-04-16 18:50 | XMS_ITS | Encounter Summary ---
Author Organization [facility] Address [facility] [place] [address] Care Team Providers Care Viscosity Inspector Name Role Phone Lisa Porras MD Unavailable Latosha Olmstead Primary Care Provider Unavailisidra e Latosha Olmstead Unavailable Unavailable Source Comments In the event this information is protected by the Federal Confidentiality of Alcohol and Drug AbusePatient Records regulations: The Federal rules restrict any use of the information to criminally investigate or prosecute any alcohol or drug abuse patient.[facility] Encounter Details Date Type Department Care Team (Late st Contact Info) Description 07/05/2023 Patient Msg Urology [address] [place], [place] [id number] Manolo Ballard MD [address] [place] [address] Pathology Social History Tobacco Use Types Packs/Day Years Used Date Smoking Tobacco: Never Smokeless Tobacco: Never Alcohol Use Standard Drinks/Week Comments Yes 0 (1 standard drink = 0.6 oz pur e alcohol) rarely--holiday or special [facility] Area Deprivation Index Answer Date Al rded National Score (1-100), lower number is lower [facility] 89 05/17/2023 State Score (1-10), lower number is lower risk 8 05/17/2023 Data from: https://www.neighborhoodatlas.[facility].edu/. Last address used for calculation [address] [...] documented as of this encounter Care Teams Viscosity Inspector Relationship Specialty Start Date End Date Latosha Olmstead [address] [place] [address] PCP - General 05/17/23 Lisa Porras MD [address] [place] [address] Referring Urology 05/11/23 [facility] [address] [place] [address] Referring 01/04/24 documented as of this encounter
--- OUTSIDE RECORDS SUMMARY | 2025-04-16 18:50 | XMS_ITS | Encounter Summary ---
Author Organization [facility] tem Address [id number] [address] [place] [address] Care Team Providers Care Chemistry Technical Officer Name Role Phone Kapil Marr MD Primary Care Provider [phone] Reason for Visit * Reason Onset Date Comments Med Refill 12/12/2017 Encounter Details Date Type Department Care Team (Late st Contact Info) Description 12/12/2017 Refill [facility] [address] [place] [address] Barbara Lucero RN Reflex sympathetic dystrophy of [...] removal OARRS appropriate: Yes Last UDS: 03/23/17 [facility] patient Barbara Lucero RN 12/12/17 1448 documented in this encounter Plan of Treatment Upcoming Encounters Date Type Department Care Team (Late Contact Info) Description 06/18/2025 12:15 PM EDT Office Visit [facility] [address] [place] [address] Gertrude Li, PAJuan JoseC [address] [place] [address] documented as of this encounter Visit Diagnoses Diagnosis Reflex sympathetic dystrophy of right upper extremity documented in this encounter Additional Health Concerns Infection Onset Date Last Indicated Resolved Time COVID-19 Positive 09/28/2021 09/28/2021 10/19/2021 11:12 PM EST documented as of this encounter Care Teams Chemistry Technical Officer Relationship Specialty Start Date End Date Kapil Marr MD [address] [place] [address] PCP - General Family Medicine 02/19/25 documented as of this encounter
--- OUTSIDE RECORDS SUMMARY | 2025-04-16 18:50 | XMS_ITS | Encounter Summary ---
Author Organization [facility] Address [address] [place] [address] Care Team Providers Care Principal Biostatistician Name Role Phone Mariluz Mo MD Primary Care Provider [phone] Lisa Porras MD Unavailable Latosha Olmstead Primary Care Provider Unavailabl e Latosha Olmstead Unavailable Unavailable Source Comments In the event this information is protected by the Federal Confidentiality of Alcohol and Drug AbusePatient Records regulations: The Federal rules restrict any use of the information to criminally investigate or prosecute any alcohol or drug abuse patient.[facility] Encounter Details Date Type Department Care Team (Late st Contact Info) Description 2023 [place] [address] Provider, f Medicare Coverage of Physical Exams [...] N ot on file 12/26/2020 Data from: [email or web address] Last address used for calculation Not [...] documented as of this encounter Care Teams Principal Biostatistician Relationship Specialty Start Date End Date Mariluz Mo MD [address] [place] [address] PCP - General Family Medicine 01/29/21 05/16/[address] [place] [address] PCP - General 05/17/23 Lisa Porras MD [address] [facility] [address] [place] [address] Referring Urology 05/11/23 [address] Olmstead [address] [address] [place] [address] Referring 01/04/24 documented as of this encounter
--- OUTSIDE RECORDS SUMMARY | 2025-04-16 18:50 | XMS_ITS | Encounter Summary ---
Author Organization [employer] Address [facility]-[id number] [address] [place] [address] Care Team Providers Care Director Of Transportation Name Role Phone Kapil Marr MD Primary Care Provider [phone] Encounter Details Date Type Department Care Team (Late st Contact Info) Description 08/28/2024 Orders Only [facility] [address] [place] [address] External, Scanning Provider Social History [...] you attend chur ch or sabianism services? Patient declined 08/13/2020 Do you belong [...] Recorded Do you need help finding a [facility] career center and/or a training [...] [facility] [address] [place] [phone] Gertrude Li PA-C [address] [place], [place] [phone] documented as of this encounter Procedures Procedure [...] Performing Organization Address City/[facility] Co de Phone Number MANUALLY TRANSCRIBED RESULTS * Multiple labs (08/08/2024 2:40 PM EST) us Scanning Provider External OK IMAGING Final Result Performing Organization Address [facility] Co de Phone Number MANUALLY TRANSCRIBED [...] Edited Result - Final Performing Organization Address [facility] de Phone Number MANUALLY TRANSCRIBED RESULTS * [...] Performing Organization Address City/[facility] Co de Phone Number MANUALLY TRANSCRIBED RESULTS documented in this encounter Visit Diagnoses Not on filedocumented in this encounter Care Teams Director Of Transportation Relationship Specialty Start Date End Date Kapil Marr MD [address] [facility], [place] [address] PCP - General Family Medicine 02/19/25 documented as of this encounter
--- OUTSIDE RECORDS SUMMARY | 2025-04-16 18:51 | XMS_ITS | Encounter Summary ---
Author Organization [facility] Address [address] [place] [address] Care Team Providers Care Internal Communications Writer Name Role Phone Latosha Olmstead NP Unavailable [phone] Kofi Gotti MD Primary Care Provider [phone] Ninfa Canela MA Unavailable [phone] Unallocated, Noms Provider Primary Care Provi emiliana Encounter Details Date Type Department Care Team (Late st Contact Info) Description 10/03/2024 Orders Only [facility] [address] [place] [address] Latosha Olmstead, PRODUCT/INDUSTRY CONSULTANT [address] [place] [address] Social History Tobacco Use Types Packs/Day Years [...] How often do you attend chur or voodoo services? Never 10/11/2023 Do you belong to any clubs o r organizations such as orthodoxy groups, unions, fraternal or athletic groups, or [...] documented as of this encounter Care Teams Internal Communications Writer Relationship Specialty Start Date End Date Kofi Gotti MD [address] [place] [address] PCP - General Family Medicine 06/20/24 02/02/25 Unallocated, Noms ProviderMD [address] [place] [address] PCP - General Family Medicine 02/03/25 Latosha Olmstead NP [address] [place] [address] Nurse Practitioner Family Medicine 06/11/24 02/02/25 Ninfa Canela MA [address] [place] [address] Family Medicine 09/13/24 01/30/25 documented as of this encounter
--- OUTSIDE RECORDS SUMMARY | 2025-04-16 18:51 | XMS_ITS | Clinical Summary ---
Author Organization [employer] tem Address [id number] [address] [place] [address] Care Team Providers Care Char House Supervisor Name Role Phone Kapil Marr MD Primary Care Provider [phone] Allergies Active Allergy Reactions Criticality Noted Date [...] use your sliding scale 1 Box 1 7 Active metFORMIN (GLUCOPHAGE) 1000 mg tablet Take 1 tablet (1,000 mg total) by mouth in the morning and 1 tablet (1,000 mg total) in the evening. Take with meals. Active AMBULATORY COMPOUNDED MEDICATION Apply 120 g topically See Admin Instructions. Formula 8E Apply 1-2 grams topically to affected area three to four times daily 120 g 2 9 Active Additional Information Patient not taking.Informant: Self, Reported on 03/12/2025 insulin glargine (LANTUS SOLOSTAR U-100 INSULIN) 100 unit/mL (3 mL) insulin pen Inject 30 Units under the skin 2 (two) times a day. 1 Box 12 0 Active ferrous sulfate 325 (65 FE) mg tablet Take 1 tablet (325 mg total) by mouth in the morning. 1 Active lisinopriL (PRINIVIL,ZESTR IL) 10 mg tablet Take 1 tablet (10 mg total) by mouth in the morning. Active metoprolol succinate XL (TOPROL XL) 50 mg 24 hr tablet Take 1 tablet (50 mg total) by mouth in the morning. 3 Active cyanocobalamin, vitamin B-12, (VITAMIN B-12) 1,000 mcg tablet extended release Take 1 tablet (1 mg total) by mouth in the morning. 3 Active denosumab (PROLIA) 60 mg/mL syringe injection Inject 1 mL (60 mg total) under the skin once. Active HYDROcodone-lorie taminophen (NORCO) 7.5-325 mg per tabletIndicatio ns:Reflex sympathetic dystrophy of right upper extremity Take 1 tablet by mouth 3 (three) times a day as needed for pain. 90 tablet 5 Active amLODIPine (NORVASC) 10 mg tablet Take 1 tablet (10 mg total) by mouth in the morning. 5 Active atorvastatin (LIPITOR) 20 mg tablet Take 1 tablet (20 mg total) by mouth once daily at bedtime. TAKE 1 TABLET (20 MG) BY MOUTH AT BEDTIME 5 04/27/20 25 Active fluticasone propionate (FLONASE) 50 mcg/actuation nasal spray 2 sprays as needed for allergies. 4 Active pregabalin (LYRICA) 150 mg capsuleIndicati ons:Complex regional pain syndrome type 1 of right upper extremity Take 1 capsule (150 mg total) by mouth in the morning and 1 capsule (150 mg total) at noon and 1 capsule (150 mg total) in the evening. 90 capsule 1 5 Active HYDROcodone-lorie taminophen (NORCO) 7.5-325 mg per tabletIndicatio ns:Reflex sympathetic dystrophy of right upper extremity Take 1 tablet by mouth 3 (three) times a day as needed for pain. 90 tablet 5 Active Active Problems Problem Noted Date Diagnosed Date Encounter for long-term opiate analgesic use Hyperglycemia 08/13/2020 Complex regional pain syndro me type 1 of right upper extremity 02/05/2020 Complex regional pain syndro me type 1 of right upper extremity 02/05/2020 Overview (02/05/2020): Added automatically from request for surgery [id number] Reflex sympathetic dystrophy of right upper extr emity 09/26/2017 Overview (09/26/2017): Added automatically from request for surgery [id number] Renal cyst 01/10/2017 Overview (01/10/2017): Enlarging left renal Bosniak 2 cyst confirmed on MRI 2014. No evidence of enhancement. Stable on followup ultrasound Encounters Date Type Department Care Team Description 03/19/2025 Refill [facility] [address] [place] [address] Virginia Pierce RN 03/13/2025 Refill [facility] [address] [place] [address] Latosha Gray CNA Complex regional pain syndrome type 1 of right upper extremity; Reflex sympathetic dystrophy of right upper extremity 03/12/2025 1:00 PM EDT Office Visit [facility] [address] [place] [address] Gertrude Li PA-C Complex regional pain syndrome type 1 of right upper extremity (Primary Dx) 03/12/2025 Travel 03/03/2025 Telephone [facility] [address] [place] [address] Gertrude Li PA-C 02/28/2025 2:22 PM EDT - 02/28/2025 2:29 PM EDT Surgery [facility] [address] [place] [address] Joe Pedro MD INJECTION BLOCK NERVE STELLATE GANGLION NECK [49498 (CPT )] 02/28/2025 2:09 PM EDT Anesthesia Event [facility] [address] [place] [address] Emigdio Rodas, Vasu De La Cruz, BAG LINER-IT RISK AND ASSURANCE SENIOR MANAGER 02/28/2025 1:23 PM EDT - 02/28/2025 11:59 PM EDT Hospital Encounter [facility] [address] [place] [address] Joe Pedro MD Discharge Disposition: Home 02/28/2025 8:35 AM EDT - 02/28/2025 1:22 PM EDT Hospital Encounter [facility] - Radiology [address] [place] [facility] [address] Joe Pedro MD Reflex sympathetic dystrophy of right upper extremity Discharge Disposition: Home 02/28/2025 Orders Only [facility] [address] [place] [address] Barbara Lucero RN Reflex sympathetic dystrophy of right upper extremity (Primary Dx); Encounter for long-term use of opiate analgesic 02/11/2025 Refill [facility] [address] [place] [facility] [address] Latosha Gray CNA Reflex sympathetic dystrophy of right upper extremity 02/06/2025 Telephone [facility] [address] [place] [address] Asia Barreto, REY 01/15/2025 Refill [facility] [address] [place] [address] Asia Barreto, REY Reflex sympathetic dystrophy of [...] often do you attend chur ch or yazidism services? Patient declined 08/13/2020 Do you belong to any clubs o r organizations such as christian groups, unions, fraternal or athletic groups, or [...] Do you need help finding a [facility] career center and/or a training program? [...] 12:15 PM EDT Office Visit [facility] [address] [place] [address] Gertrude Li, PAJuan JoseC [address] [place] [address] Health Maintenance Due Date Last Done Comments Depression Screening 1970 DTaP,Tdap and Td Vaccines (1 - Tdap) 1977 Zoster (Shingles) Vaccine (1 of 2) 2008 Fall Risk Screening 2023 COVID-19 Vaccine (4 - 2023-2 5 season) 2024 04/02/2021, 03/02/2021, 12/07/2020 Influenza Vaccine 04/21/2025 06/03/2016 Adult BMI Screening 03/12/2026 03/12/2025 Tobacco Screening 03/12/2026 03/12/2025 Medical Devices Implanted Type Area Milk Bottler Device Identifier Shelf Expiration Date Model / Serial / Lot Cervical Fusion Hardware Left Ankle Orif Explanted Type Area Milk Bottler Device Identifier Shelf Expiration Date Model / Serial / Lot Scs Procedures Procedure Name Priority Date/Time Associated Diagnosis Comments [facility] GENERIC ORDER Routine 03/12/2025 1: 43 PM [...] Reflex sympathetic dystrophy of right upper extremity MT INJECT NERV BLCK,STELLATE GANGLION 02/28/2025 2:08 PM EDT Reflex sympathetic dystrophy of right upper extremity Special Needs Diabetic Latex allergy NEEDS UDS BEDSIDE GLUCOSE Routine 02/28/2025 1:27 PM EDT from Last 3 Months Results * [facility] ORDER (03/12/2025 1:43 PM EDT) TEST RESULT SEE COMMENTS 03/17/2025 3:33 PM EDT [facility] Comment: Test Result Flag Unit RefValue Pregabalin, urine SEE COMMENTS Test Result Flag Units Reference Range Pregabalin, UR Pregabalin 26.2 ug/mL This test was developed and its performance characteristics determined by [facility]. It has not been cleared or approved by the Food and Drug Administration. Test Performed by: [facility]. [address] [place] [address] Urine Urine / Unknown 03/12/2025 1 :43 PM EDT 03/12/2025 1:43 PM EDT us Gertrude Li PA-C LAB BLOOD ORDERABLES Final Result [facility] [address] [place] [address], [place] * Gabapentin, Urine (03/12/2025 1:43 PM EDT) GABAPENTIN,URI NE Negative ug/mL 03/14/2025 8:27 PM EDT [facility] Comment: Test Performed by: [facility]. [address] [place] [address] Urine Urine specimen collection, clean catch / Unknown 03/12/2025 1:43 PM EDT 03/12/2025 1:43 PM EDT Gertrude Li PA-C URINE ORDERABLES Final Resu lt Performing Organization Address [facility]/ZIP Co de Phone Number [facility] [address] [place] [address], [place] * (ABNORMAL) Controlled Substance Monitoring, U (03/12/2025 1:43 PM EDT) Control Substance Panel, Urine SEE COMMENTS (A) 03/15/2025 8:01 AM EDT [facility] Comment: Test Result Flag Unit RefValue Controlled Substance Monitoring, U List Patient's Current HYDROCODONE Medications ADDITIONAL INFORMATION Accuracy and completeness of declared medications on reports solely dependent on information submitted by client. Creatinine, U 58.1 mg/dL Specific [place] 1.012 pH 5.6 Oxidants Negative Cutoff: 200 [...] Not Detected ng/mL Cutoff: 25 Tylenol 3 Jeqenju-3-ancd- Not Detected ng/mL Cutoff: 100 glucuronide Metabolite of codeine Morphine Not Detected ng/mL Cutoff: 25 Avinza, Marium, MS Contin; Also a minor metabolite (10%) of codeine and can be seen in low concentrations (<2,000 ng/mL) with poppy seed ingestion. Gehokwqh-9-xydf- Not Detected ng/mL Cutoff: 100 glucuronide Metabolite of morphine 6-monoacetylmorphine Not Detected ng/mL Cutoff: 25 Metabolite of heroin Hydrocodone Present A ng/mL Cutoff: 25 Lortab, Imnaha, Vicodin; Also a very minor metabolite of codeine and impurity (<1%) of oxycodone. Norhydrocodone Present A ng/mL Cutoff: 25 Metabolite of hydrocodone Dihydrocodeine Present A ng/mL Cutoff: 25 Metabolite of hydrocodone Hydromorphone Not Detected ng/mL Cutoff: 25 Dilaudid, Exalgo; Also a metabolite of hydrocodone and a minor (<5%) metabolite of morphine. Hyvfwpvqbpbyo-9-mdiy- Not Detected ng/mL Cutoff: 100 glucuronide Metabolite of hydromorphone Oxycodone Not Detected ng/mL Cutoff: 25 Endocet, Percocet, Oxycontin Noroxycodone Not Detected ng/mL Cutoff: 25 Metabolite of oxycodone Oxymorphone Not Detected ng/mL Cutoff: 25 Numorphan, Opana; Also a metabolite of oxycodone. Dfkutocfkok-6-hmsl- Not Detected ng/mL Cutoff: 100 glucuronide Metabolite [...] Naloxone Not Detected ng/mL Cutoff: 25 Narcan Vhdibjyq-6-rros- Not Detected ng/mL Cutoff: 100 glucuronide Metabolite [...] its performance characteristics determined by [facility] in a manner consistent with CLIA requirements. [...] its performance characteristics determined by [facility] in a manner consistent with CLIA requirements. This test has not been cleared or approved by the U.S. Food and Drug Administration. Methamphetamine Not Detected ng/mL Cutoff: 100 Desoxyn Amphetamine Not Detected ng/mL Cutoff: 100 Dyanavel XR, Adzenys ER, Adderall, Vyvanse; Also a metabolite of methamphetamine 3,4- Not Detected ng/mL Cutoff: 100 methylenedioxymethamphetamine (MDMA) 3,0-rneeddinqdwutv-A- Not Detected ng/mL Cutoff: 100 ethylamphetamine (MDEA) [...] its performance characteristics determined by [facility] in a manner consistent with CLIA requirements. This test has not been cleared or approved by the U.S. Food and Drug Administration. Test Performed by: [facility] - [address] [address] Spinning Lathe Operator: Norbert Macario Ph.D.; CLIA# [id number] Urine / Unknown 03/12/2025 1 :43 PM EDT 03/12/2025 1:43 PM EDT us Gertrude Li PA-C URINE ORDERABLES Final Resu lt [facility] [address] [place] [address], [place] * Pregabalin, Urine (03/12/2025 1:43 PM EDT) LOOK Sent to [facility]. 03/12/2025 6:45 PM EDT [facility] Urine Urine / Unknown 03/12/2025 1 :43 PM EDT 03/12/2025 1:43 PM EDT Gertrude Li PA-C LAB BLOOD ORDERABLES Final Result [facility] [address] [place] [address], [place] [phone] * Fluoroscopy less than one hour (02/28/2025 2:15 PM EDT) Narrative SYSTEMGENERATED, DOCUMENTATION - 02/28/2025 2:15 PM EDT No Reading Required. This procedure does not require a formal dictation. Non-Radiologist provider performed procedures can be reviewed under Post-Op, Procedure or Progress notes. For full report details, please reach out to your physician. Effective 01/05/2021 this image will be visible to you in MyChart. Joe Pedro MD IMG FLUOROSCOPY ORDERABLES Fi nal Result * (ABNORMAL) Bedside Glucose *Place/Obtain serum glucose if >500 per glucometer. (02/28/2025 1:27 PM EDT) Bedside Glucose (POC) 103(H) 65 - 99 mg/dL 02/28/2025 1:32 PM EDT [facility] arterial/capilla ry 02/28/2025 1:27 PM EDT 02/28/2025 1:32 PM EDT Joe Pedro MD POINT OF CARE TEST ORDERABLES Final Result [facility] [address] [place] [address], [place] from Last 3 Months Insurance [employer] MEDICARE [facility] Care Teams Char House Supervisor Relationship Specialty Start Date End Date Kapil Marr MD [address] [facility], [place] [address] PCP - General Family Medicine 02/19/25
--- OUTSIDE RECORDS SUMMARY | 2025-04-16 18:51 | XMS_ITS | Encounter Summary ---
Author Organization [facility] Address [address] [place] [address] Care Team Providers Care Blowing Engineer Name Role Phone Latosha Olmstead NP Unavailable [phone] Kofi Gotti MD Primary Care Provider Ninfa Canela MA Unavailable [phone] Unallocated, Noms Provider Primary Care Provi emiliana Encounter Details Date Type Department Care Team (Late st Contact Info) Description 11/25/2024 Orders Only [facility] [address] [place] [address] [place] [address] [place] [address] Social History Tobacco Use Types [...] How often do you attend chur or samaritan services? Never 10/11/2023 Do you belong to any clubs o r organizations such as episcopal groups, unions, fraternal or athletic groups, or [...] Recorded Patient Health Questionnaire-2 Score 2 11/18/2024 [facility] - Occupational Stress Questionnaire Answer Date [...] documented as of this encounter Care Teams Blowing Engineer Relationship Specialty Start Date End Date Kofi Gotti MD [address] [place] [address] PCP - General Family Medicine 06/20/24 02/02/25 Unallocated, Noms Yuki, [address] [place] [address] PCP - General Family Medicine 02/03/25 Latosha Olmstead NP [address] [place] [address] Nurse Practitioner Family Medicine 06/11/24 02/02/25 Ninfa Canela, JOHNNY [address] [place] [address] Family Medicine 09/13/24 01/30/25 documented as of this encounter
--- OUTSIDE RECORDS SUMMARY | 2025-04-16 18:51 | XMS_ITS | Encounter Summary ---
Author Organization [facility] [employer] [facility] tem Address [id number] [address] [place] [address] Care Team Providers Care Bilingual Receptionist Name Role Phone Kapil Marr MD Primary Care Provider [phone] Encounter Details Date Type Department Care Team (Late st Contact Info) Description 09/07/2023 Telephone [facility] [address] [place] [address] Latosha Gray CNA Social History Tobacco Use [...] Recorded Do you need help finding a [facility] [employer] center and/or a training program? No 08/13/2020 [...] for OV. Procedure and UDS ordered, pending [facility] approval. Patient reports she was calling because she was admitted to [facility] for sepsis and was there for 3 days. Patient unsure of dates of admission. Seems somewhat confused about days. Explained today is . She then thinks she must have been in the hospital over the weekend, but not positive. Reminded her that her fill date for her Teller would be adjusted due to hospitalization. Please check on [facility] approval Thank you documented in this encounter Plan of Treatment Upcoming Encounters Date Type Department Care Team (Late st Contact Info) Description 06/18/2025 12:15 PM EDT Office Visit [facility] [address] [place] [address] Gertrude Li, PAJuan JoseC [address] [place], [place] [address] documented as of this encounter Visit Diagnoses Not on filedocumented in this encounter Care Teams Bilingual Receptionist Relationship Specialty Start Date End Date Kapil Marr MD [address] [place] [address] PCP - General Family Medicine 02/19/25 documented as of this encounter
--- OUTSIDE RECORDS SUMMARY | 2025-04-16 18:51 | XMS_ITS | Encounter Summary ---
Author Organization [facility] Address [address] [place] [address] Care Team Providers Care Water Resource Engineering Specialist Name Role Phone Kofi Gotti MD Primary Care Provider [phone] Kofi Gotti MD Primary Care Provider [phone] Lissette Matamoros LPN Unavailable Unavailable Unallocated, Noms Provider Primary Care Provi emiliana Latosha Olmstead NP Unavailable [phone] Kofi Gotti MD Primary Care Provider [phone] Ninfa Canela MA Unavailable [phone] Unallocated, Noms Provider Primary Care Provi [...] EST Narrative 08/08/2023 10:08 [place] [address] XRay Report Signed Patient: RENATE CARNES MR#: [id number] : 1960 Acct:[id number] Age/Sex: 63 / F ADM Date: 08/07/23 Loc: Attending Dr: Cammie Segura Ordering Physician: Cammie Segura Date of Service: 08/07/23 Procedure(s): XR foot LT min 3V Accession Number(s): [id number] cc: Latosha Olmstead MULTIPLE WIRE SAWYER; Cammie Segura [address] [place] [id number] Patient Name: RENATE CARNES MRN: [id number] date: 1960 Sex: F Assigned Patient Location: Current Patient Location: Accession/Order Number: [id number] Exam Date: 08/07/2023 11:27 Report Date: 08/08/2023 [...] Signed By: 08/08/23 1008 DD/ 1005 TD/TT: Market Reporter: Procedure Note Radiology, Radiologist, MD - 08/08/[address] [address] XRay Report Signed Patient: RENATE CARNES MMR#: [id number] : 1960cct:[id number] Age/Sex: 63 / FADM Date: 08/07/23 Loc: Attending Dr: Cammie Segura Ordering Physician: Cammie Segura Date of Service: 08/07/23 Procedure(s): XR foot LT min 3V Accession Number(s): [id number] cc: Latohsa Olmstead M[employer]ER; Cammie Segura [place] [address] Patient Name: RENATE CARNES MRN: [id number] date: 1960 Sex: F Assigned Patient Location: Current Patient Location: Accession/Order Number: [id number] Exam Date: 08/07/2023 11:27 Report Date: 08/08/2023 [...] Rowley Signed By:08/08/23 1008 DD/ 1005 TD/TT: Market Reporter: us Generic External Data Provider [facility] Final Result documented in this encounter Visit Diagnoses Not on filedocumented in this encounter Care Teams Water Resource Engineering Specialist Relationship Specialty Start Date End Date Kofi Gotti MD PCP - General Family Medicine 02/10/23 10/08/23 Kofi Gotti MD [address] [place] [id number] PCP - General Family Medicine 10/09/23 06/10/24 Unallocated, Jah Mirza MD [address] [place] [address] PCP - General Family Medicine 06/11/24 06/19/24 Kofi Gotti MD [address] [place] [phone] PCP - General Family Medicine 06/20/24 02/02/25 Unallocated, Jah Mirza MD [address] [place] [address] PCP - General Family Medicine 02/03/25 Lissette Matamoros LPN Licensed Practical Nurse Family Medicine 01/22/2401/24/24 Latosha Olmstead NP [address] [place] [address] Nurse Practitioner Family Medicine 06/11/24 02/02/25 Ninfa Canela, JOHNNY [address] [place] [address] Family Medicine 09/13/24 01/30/25 documented as of this encounter
--- OUTSIDE RECORDS SUMMARY | 2025-04-16 18:51 | XMS_ITS | Encounter Summary ---
Author Organization [facility] Address [address] [place] [address] Care Team Providers Care Pulper Tender Name Role Phone Kofi Gotti MD Primary Care Provider [phone] Lissette Matamoros LPN Unavailable Unavailable Unallocated, Noms Provider Primary Care Provi emiliana Latosha Olmstead NP Unavailable [phone] Kofi Gotti MD Primary Care Provider [phone] Ninfa Canela MA Unavailable [phone] Unallocated, Noms Provider Primary Care Provi emiliana Encounter Details Date Type Department Care Team (Late st Contact Info) Description 10/19/2023 Orders Only [facility] [address] [place] [address] Epifanio Enrique Social History Tobacco [...] any clubs o r organizations such as latter-day groups, unions, fraternal or athletic groups, or [...] Recorded Patient Health Questionnaire-2 Score 2 10/11/2023 [facility] - [...] documented as of this encounter Care Teams Pulper Tender Relationship Specialty Start Date End Date Kofi Gotti MD [address] [place] [address] PCP - General Family Medicine 10/09/23 06/10/24 Unallocated, Heraclios MD Yuki [address] [place] [address] PCP - General Family Medicine 06/11/24 06/19/24 Kofi Gotti MD [address] [place] [phone] PCP - General Family Medicine 06/20/24 02/02/25 Unallocated, MD [address] [place] [address] PCP - General Family Medicine 02/03/25 Lissette Matamoros LPN Licensed Practical Nurse Family Medicine 01/22/2401/24/24 Latosha Olmstead NP [address] [place] [address] Nurse Practitioner Family Medicine 06/11/24 02/02/25 Ninfa Canela MA [address] [place] [address] Family Medicine 09/13/24 01/30/25 documented as of this encounter
--- OUTSIDE RECORDS SUMMARY | 2025-04-16 18:51 | XMS_ITS | Encounter Summary ---
Author Organization [facility] Address [address] [place] [address] Care Team Providers Care Rounding And Backing Machine Operator Name Role Phone Latosha Olmstead NP Unavailable [phone] Kofi Gotti MD Primary Care Provider Ninfa Canela MA Unavailable [phone] Unallocated, Noms Provider Primary Care Provi emiliana Encounter Details Date Type Department Care Team (Late st Contact Info) Description 11/07/2024 Orders Only [facility] [address] [place] [address] Latosha Olmstead, LABOR ARBITRATOR HEARING OFFICE [address] [place] [address] Social History Tobacco Use Types Packs/Day Years [...] any clubs o r organizations such as oriental orthodox groups, unions, fraternal or athletic groups, or [...] Recorded Patient Health Questionnaire-2 Score 0 10/24/2024 [facility] - [...] place to sleep or slept in a halfway (including now)? No 10/11/2023 Comments Unknown Sex [...] documented as of this encounter Care Teams Rounding And Backing Machine Operator Relationship Specialty Start Date End Date Kofi Gotti MD [address] [place] [address] PCP - General Family Medicine 06/20/24 02/02/25 Unallocated, Heraclios MD Yuki [address] [facility] [place] [address] PCP - General Family Medicine 02/03/25 Latosha Olmstead NP [address] [place] [address] Nurse Practitioner Family Medicine 06/11/24 02/02/25 Ninfa Canela, JOHNNY [address] [place] [address] Family Medicine 09/13/24 01/30/25 documented as of this encounter
--- OUTSIDE RECORDS SUMMARY | 2025-04-16 18:51 | XMS_ITS | Clinical Summary ---
Author Organization [facility] Healthcare Address [address] [place] [address] Care Team Providers Care Insulating Machine Operator Name Role Phone Unallocated, Noms Provider Primary Care Provi emiliana Allergies Active Allergy Reactions Criticality Noted Date Comments Latex Rash Low 02/04/2020 Added based on information entered during case entry, please review and add reactions, type, and severity as needed Medications HYDROcodone-acetam inophen (Thayer) 7.5-325 MG tablet Take 1 tablet by [...] follow through She is established with local [facility] [employer] Experience Strategy Goal: bp and DM control, although there again her compliance with blood sugar checking is difficult. She has been referred to local area Endo and Sampling Expert, but does not go to her appts [...] follow through She is established with local [employer] Experience Strategy Goal: bp and DM control, although there again her compliance with blood sugar checking is difficult. She has been referred to local area Endo and Sampling Expert, but does not go to her appts as scheduled and has been discharged, and does not appear to have a strong support system Assessment & Plan (11/18/2024 6:28 AM EDT): Long standing uncontrolled HTN and DM Multiple attempts to get pt to specialists, does not follow through She is established with local [facility] Experience Strategy Goal: bp and DM control, although there again her compliance with blood sugar checking is difficult. She has been referred to [facility] Endo and Sampling Expert, but does not go to her appts as scheduled and has been discharged, and does not appear to have a strong support system Assessment & Plan (10/24/2024 7:17 AM EST): Long standing uncontrolled HTN and DM Multiple attempts to get pt to specialists, does not follow through She is established with local [facility] Experience Strategy, it is of note that in the last week she was admitted to [facility] for elevated kidney function and potassium, med adjustments as well. Urged pt to please continue to follow with Nephrology Goal: bp and DM control, although there again her compliance with blood sugar checking is difficult. She has been referred to [facility] Endo and Sampling Expert, but does not go to her appts as scheduled and has been discharged, and does not appear to have a strong support system Assessment & Plan (09/11/2024 7:45 AM EST): Long standing uncontrolled HTN and DM Multiple attempts to get pt to specialists, does not follow through She is established with local [facility] Experience Strategy, it is of note that in the last week she was admitted to [facility] for elevated kidney function and potassium, med adjustments as well. Urged pt to please continue to follow with Nephrology Goal: bp and DM control, although there again her compliance with blood sugar checking is difficult. She has been referred to [facility] Endo and Sampling Expert, but does not go to her appts as scheduled and has been discharged, and does not appear to have a strong support system Assessment & Plan (08/27/2024 2:58 PM EST): Long standing uncontrolled HTN and DM Multiple attempts to get pt to specialists, does not follow through She is established with local [facility] Experience Strategy Continue to follow Goal: bp and DM control Assessment & Plan (08/27/2024 6:56 AM EST): Long standing uncontrolled HTN and DM Multiple attempts to get pt to specialists, does not follow through She is established with local [facility] [employer] Experience Strategy Continue to follow Goal: bp and DM control 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 08/27/2024 Assessment & Plan (08/27/2024 6:58 AM EST): 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 health conditions shelter (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 08/27/2024 Assessment & Plan (08/27/2024 6:58 AM EST): Both basal and bolus Other chest pain 08/27/2024 Assessment & Plan (08/27/2024 6:30 PM EST): Had stress test and ECHO in 2022 at [facility], no acute ischemic findings Strong risk factors for CAD Will refer to [facility], in [place], has seen Danial in the past Mixed [...] NOW Post-menopausal 10/11/2023 Encounter for subsequent [facility] wellness visit (AWV) in Medicare patient [...] Assessment: on insulin managed by endocrinology at [facility], saw JAILOR 06/08 and had insulin increased. OV scanned [...] (10/11/2023): Added automatically from request for surgery [id number] Added automatically from request for surgery [id number] Renal cyst 01/10/2017 Overview (10/11/2023): Enlarging left [...] daily Will check labs History of amputation ([facility]) 06/11/2024 06/24/2024 Chronic kidney disease, stage 3b [...] & Plan: Assessment: follows with nephrology at [facility] Repeat labs scanned Potassium 4.9 Cr 1.68 [...] Care Team Description 01/31/2025 Patient Outreach [facility] [address] [place] [address] Griselda Allen LSW 01/30/2025 Patient Outreach [facility] [address] [place] [address] Ninfa Canela MA 01/30/2025 Telephone [facility] [address] [place] [address] Latosha Olmstead NP 01/30/2025 Telephone [facility] [address] [place] [address] Latosha Olmstead NP 01/30/2025 Telephone [facility] [address] [place] [address] Latosha Olmstead NP 01/30/2025 Orders Only [facility] [address] [place] [address] Latosha Olmstead NP 01/30/2025 Clinisync Result Encounter [facility] External Department Unsolicited Latosha Olmstead NP 01/27/2025 2:40 PM EDT Office Visit [facility] [address] [place] [address] Latosha Olmstead NP Chronic kidney disease, stage 4 (severe) ([facility]) (Primary Dx); Mixed hyperlipidemia ; Essential (primary) hypertension ; Burning with urination; UTI symptoms; Urinary tract infection symptoms; Type 2 diabetes mellitus with diabetic neuropathy, with long-term current use of insulin ([facility]); History of neurogenic bladder; Neurogenic bladder; 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; Hyperparathyroidism, unspecified ([facility]); B12 deficiency; Type 2 diabetes mellitus with hyperglycemia, with long-term current use of insulin ([facility]); Vitamin D deficiency; Hypomagnesemia; Non compliance w medication regimen; Fatigue, unspecified type; Other fatigue 01/27/2025 Rhapsodyo flowsheet [facility] [address] [place] [address] Latosha Olmstead NP from Last 3 Months Immunizations Immunization Administration [...] you attend chur ch or mandaeism services? Never 10/11/2023 Do you belong to any clubs o r organizations such as mormonism groups, unions, fraternal or athletic groups, or [...] Recorded Patient Health Questionnaire-2 Score 2 11/18/2024 [facility] [...] (01/30/2025 11:47 AM EDT) us Latosha Olmstead DROP SHIPMENT CLERK LAB CHG PERFORMABLES Final Resu lt * [...] Narrative CLINISYNC - 01/30/2025 9:51 AM EDT Latosha Olmstead NP CLINISYNC Final Result [facility] * VITAMIN B12 (01/30/2025 9:25 AM EDT) VITAMIN B12 320 232 - 1245 pg/mL TBH Comment: Performed at: [address] [id number] Junior Data Analyst: Chris Luna PhD, Phone: [phone] 01/30/2025 9:25 AM EDT 01/30/2025 9:41 AM EDT Narrative CLINISYNC - 01/31/2025 4:07 AM EDT us Latosha Olmstead DROP SHIPMENT CLERK LAB BLOOD ORDERABLES Final Resu lt CLINISYNC TB[facility] * (ABNORMAL) TRANSFERRIN (01/30/2025 9:25 AM EDT) TRANSFERRIN 184(A) 192 - 364 mg/dL TBH Comment: Performed at: [address] [id number] Junior Data Analyst: Chris Luna PhD, Phone: [phone] 01/30/2025 9:25 AM EDT 01/30/2025 9:41 AM EDT Narrative CLINISYNC - 01/31/2025 5:07 AM EDT us Latosha Olmstead DROP SHIPMENT CLERK LAB BLOOD ORDERABLES Final Resu lt Performing Organization Address City/[facility]/ZIP Co de Phone Number CLINISYNC TBH * (ABNORMAL) METRO IRON AND TIBC (01/30/2025 9:25 AM EDT) TBH IRON 35.0(L) 50.0 - 170.0 ug/dL TBH TBH TOTAL IRON BINDING CAPACITY 221.0(L) 250.0 - 450.0 ug/dL TBH TBH PERCENT IRON SATURATION 15.8 % TBH 01/30/2025 9:25 AM EDT 01/30/2025 9:41 AM EDT Narrative CLINISYNC - 01/30/2025 11:16 AM EDT us Latosha Olmstead DROP SHIPMENT CLERK CLINISYNC Final Result CLINISYNC TB[facility] * (ABNORMAL) [facility] PTH, INTRAOPERATIVE (01/30/2025 9:25 AM EDT) PTH, INTACT 145(A) 15 - 65 pg/mL TBH Comment: Performed at: [address] [id number] Junior Data Analyst: Chris Luna PhD, Phone: [phone] 01/30/2025 9:25 AM EDT 01/30/2025 9:41 AM EDT Narrative CLINISYNC - 01/31/2025 11:08 AM EDT us Latosha Olmstead DROP SHIPMENT CLERK CLINISYNC Final Result Performing Organization Address [facility] Co de Phone Number CLINISYNC TB * (ABNORMAL) MEDICAL CENTER BARBOUR LIVER PANEL (01/30/2025 9:25 AM EDT) BILIRUBIN [...] NP CLINISYNC Final Result Performing Organization Address [facility] Co de Phone Number CLINISYNC TBH * ALL THYROID STIM HORMONE (01/30/2025 9:25 AM EDT) THYROID STIMULATING HORMONE 0.429 0.358 - 3.740 uIU/mL TBH 01/30/2025 9:25 AM EDT 01/30/2025 9:41 AM EDT Narrative CLINISYNC - 01/30/2025 11:57 AM EDT us Latosha Olmstead DROP SHIPMENT CLERK CLINISYNC Final Result Performing Organization Address [facility] Co de Phone Number CLINISYNC TBH * ALL PHOSPHOROUS (01/30/2025 9:25 AM EDT) PHOSPHORUS 4.6 2.6 - 4.7 mg/dL TBH 01/30/2025 9:25 AM EDT 01/30/2025 9:41 AM EDT Narrative CLINISYNC - 01/30/2025 11:57 AM EDT Latosha Aysha DROP SHIPMENT CLERK CLINISYNC Final Result CLINISYNC TB * (ABNORMAL) ALL MAGNESIUM (01/30/2025 9:25 AM EDT) MAGNESIUM 1.6(L) 1.8 - 2.4 mg/dL TBH 01/30/2025 9:25 AM EDT 01/30/2025 9:41 AM EDT Narrative CLINISYNC - 01/30/2025 11:57 AM EDT Latosha Olmstead DROP SHIPMENT CLERK CLINISYNC Final Result Performing Organization Address City/[facility]/ZIP Co de Phone Number CLINISYNC TB [...] 0.55 - 1.02 mg/dL TBH TBH EGFR-AF ANGUILLAN 18(L) >=60 mL/min/1.7 3m 2 TBH TBH EGFR-NON AF ANGUILLAN 15(L) >=60 mL/min/1.7 3m 2 TBH BUN CREATININE RATIO 19.0 TBH CALCIUM 9.0 8.5 - 10.1 mg/dL TBH 01/30/2025 9:25 AM EDT 01/30/2025 9:41 AM EDT Narrative CLINISYNC - 01/30/2025 11:57 AM EDT Latosha Olmstead NP CLINISYNC Final Result Performing Organization Address [facility] Co de Phone Number CLINISYNC TB * TBH VITAMIN D 25 [place] (01/30/2025 9:23 AM EDT) VITAMIN D 10.1 ng/mL TBH Comment: <20 ng/mL Vit D deficient 20-<30 ng/mL Vit D insufficient 30-100 ng/mL Vit D sufficient >100 ng/mL Potential Toxicity 01/30/2025 9:23 AM EDT 01/30/2025 9:25 AM EDT Narrative CLINISYNC - 01/30/2025 11:50 AM EDT Latosha Olmstead NP CLINISYNC Final Result Performing Organization Address [facility] de Phone Number CLINISYNC TB * (ABNORMAL) [facility] FERRITIN (01/30/2025 9:23 AM EDT) FERRITIN 878.0(H) 8.0 - 252.0 ng/mL TB 01/30/2025 9:23 AM EDT 01/30/2025 9:25 AM EDT Narrative CLINISYNC - 01/30/2025 11:50 AM EDT Latosha Olmstead NP CLINISYNC Final Result Performing Organization Address [facility] de Phone Number CLINISYNC TB * ALL THYROXINE (T4) FREE (01/30/2025 9:23 AM EDT) FREE T4 0.98 0.76 - 1.46 ng/dL TB 01/30/2025 9:23 AM EDT 01/30/2025 9:25 AM EDT Narrative CLINISYNC - 01/30/2025 11:50 AM EDT Latosha Olmstead NP CLINISYNC Final Result [facility] * ALL FOLIC ACID (01/30/2025 9:23 AM EDT) FOLATE 45.30 8.60 - 58.90 ng/mL TB 01/30/2025 9:23 AM EDT 01/30/2025 9:25 AM EDT Narrative CLINISYOR - 01/30/2025 11:50 AM EDT Latosha Olmstead NP CLINISYNC Final Result [facility] * (ABNORMAL) POCT Urinalysis dipstick (01/27/2025 3:57 [...] TRACT INFECTION (HTRX) (01/27/2025 8:41 AM EDT) [facility] ERMB, C; MEFA 21.752(A) 23.000 - 27.611 ppm 01/29/2025 6:47 PM EDT [facility] ERMB, C; MEFA Detected(A) 23.000 - 27.611 ppm 01/29/2025 6:47 PM EDT [facility] MECA 28.298(A) 23.000 - 31.199 ppm 01/29/2025 6:46 PM EDT [facility] MECA Detected(A) 23.000 - 31.199 ppm 01/29/2025 6:46 PM EDT [facility] ACINETOBACTER BAUMANII 0.000 19.961 - 24.689 ppm 01/29/2025 6:47 PM EDT [facility] ACINETOBACTER BAUMANII Not Detected 19.961 - 24.689 ppm 01/29/2025 6:47 PM EDT [facility] CITROBACTER FREUNDII 0.000 23.000 - 31.881 ppm 01/29/2025 6:47 PM EDT [facility] CITROBACTER FREUNDII Not Detected 23.000 - 31.881 ppm 01/29/2025 6:47 PM EDT [facility] ENTEROBACTER AEROGENES, CLOACAE 0.000 23.000 - 31.535 ppm 01/29/2025 6:47 PM EDT [facility] ENTEROBACTER AEROGENES, CLOACAE Not Detected 23.000 - 31.535 ppm 01/29/2025 6:47 PM EDT [facility] ENTEROCOCCUS FAECALIS, FAECIUM 0.000 26.000 - 31.575 ppm 01/29/2025 6:47 PM EDT [facility] ENTEROCOCCUS FAECALIS, FAECIUM Not Detected 26.000 - 31.575 ppm 01/29/2025 6:47 PM EDT [facility] ESCHERICHIA COLI 0.000 23.000 - 28.500 ppm 01/29/2025 6:47 PM EDT [facility] ESCHERICHIA COLI Not Detected 23.000 - 28.500 ppm 01/29/2025 6:47 PM EDT [facility] KLEBSIELLA PNEUMONIAE, OXYTOCA 25.016(A) 23.000 - 30.500 ppm 01/29/2025 6:47 PM EDT [facility] KLEBSIELLA PNEUMONIAE, OXYTOCA Detected(A) 23.000 - 30.500 ppm 01/29/2025 6:47 PM EDT [facility] MORGANELLA MORGANII 0.000 19.961 - 24.689 ppm 01/29/2025 6:47 PM EDT [facility] MORGANELLA MORGANII Not Detected 19.961 - 24.689 ppm 01/29/2025 6:47 PM EDT [facility] PROTEUS MIRABILIS, VULGARIS 0.000 23.000 - 28.500 ppm 01/29/2025 6:46 PM EDT [facility] PROTEUS MIRABILIS, VULGARIS Not Detected 23.000 - 28.500 ppm 01/29/2025 6:46 PM EDT [facility] PSEUDOMONAS AERUGINOSA 0.000 23.000 - 28.500 ppm 01/29/2025 6:47 PM EDT [facility] PSEUDOMONAS AERUGINOSA Not Detected 23.000 - 28.500 ppm 01/29/2025 6:47 PM EDT [facility] STAPHYLOCOCCUS AUREUS 0.000 26.000 - 30.902 ppm 01/29/2025 6:47 PM EDT [facility] STAPHYLOCOCCUS AUREUS Not Detected 26.000 - 30.902 ppm 01/29/2025 6:47 PM EDT [facility] STREPTOCOCCUS AGALACTIAE (GROUP B STREP) 20.905(A) 26.000 - 32.222 ppm 01/29/2025 6:47 PM EDT [facility] STREPTOCOCCUS AGALACTIAE (GROUP B STREP) Detected(A) 26.000 - 32.222 ppm 01/29/2025 6:47 PM EDT [facility] RICKY ALBICANS, PARAPSILOSIS, TROPICALIS 0.000 19.961 - 30.770 ppm 01/29/2025 6:47 PM EDT [facility] RICKY ALBICANS, PARAPSILOSIS, TROPICALIS Not Detected 19.961 - 30.770 ppm 01/29/2025 6:47 PM EDT [facility] RICKY GLABRATA 0.000 23.000 - 32.138 ppm 01/29/2025 6:46 PM EDT [facility] RICKY GLABRATA Not Detected 23.000 - 32.138 ppm 01/29/2025 6:46 PM EDT [facility] RICKY KRUSEI 0.000 23.000 - 32.271 ppm 01/29/2025 6:46 PM EDT [facility] RICKY KRUSEI Not Detected 23.000 - 32.271 ppm 01/29/2025 6:46 PM EDT [facility] SERRATIA MARCESCENS 0.000 23.000 - 31.204 ppm 01/29/2025 6:47 PM EDT [facility] SERRATIA MARCESCENS Not Detected 23.000 - 31.204 ppm 01/29/2025 6:47 PM EDT [facility] STREPTOCOCCUS PYOGENES (GROUP A STREP) 0.000 19.961 - 24.689 ppm 01/29/2025 6:47 PM EDT [facility] STREPTOCOCCUS PYOGENES (GROUP A STREP) Not Detected 19.961 - 24.689 ppm 01/29/2025 6:47 PM EDT [facility] STAPHYLOCOCCUS EPIDERMIDIS, HAEMOLYTICUS, LUGDUNENSIS, SAPROPHYTICUS (URINA 0.000 19.961 - 24.689 ppm 01/29/2025 6:47 PM EDT [facility] STAPHYLOCOCCUS EPIDERMIDIS, HAEMOLYTICUS, LUGDUNENSIS, SAPROPHYTICUS (URINA Not Detected 19.961 - 24.689 ppm 01/29/2025 6:47 PM EDT [facility] STAPHYLOCOCCUS EPIDERMIDIS, HAEMOLYTICUS, LUGDUNENSIS, SAPROPHYTICUS (URINA 30.056(A) 19.961 - 24.689 ppm 01/29/2025 6:46 PM EDT [facility] STAPHYLOCOCCUS EPIDERMIDIS, HAEMOLYTICUS, LUGDUNENSIS, SAPROPHYTICUS (URINA Detected(A) 19.961 - 24.689 ppm 01/29/2025 6:46 PM EDT [facility] Urine 01/27/2025 8:41 AM EDT 01/28/2025 11:00 PM EDT Latosha Olmstead NP LAB BLOOD ORDERABLES Final Resu lt [facility] [address] [place] [place] [address] * Diabetic Retinopathy Screening - OU - [...] EDT Narrative 04/17/2024 12:40 [place] [address] Mammography Report Signed Patient: AISLINN WHEELER MR#: [id number] : 1960 Acct:[id number] Age/Sex: 63 / F ADM Date: 04/17/24 Loc: MAMMO Attending Dr: Latosha Olmstead NP Ordering Physician: Latohsa Olmstead NP Results: Date of Service: 04/17/24 Follow Up: Procedure(s): MM tomosynthesis screening BI Accession Number(s): [id number] cc: Latosha Olmstead DROP SHIPMENT CLERK Patient Name: AISLINN WHEELER MR#: [id number] : 1960 Exam Date: 04/17/2024 Ordering Doctor: [...] brain cancer at age 58. LOCATION: [facility] BREAST COMPOSITION: The breasts are heterogeneously dense,which [...] Signed By: 04/17/24 1240 DD/ 1239 TD/TT: Care Asst: Procedure Note Radiology, RadiologistMD - 04/17/2024 [place] [address] Mammography Report Signed Patient: AISLINN WHEELER MMR#: [id number] : 8Acct:[id number] Age/Sex: 63 / FADM Date: 04/17/24 Loc: MAMMO Attending Dr: Latosha Olmstead NP Ordering Physician: Aichholz,Latosha NPResults: Date of Service: 04/17/24Follow Up: Procedure(s): MM tomosynthesis screening BI Accession Number(s): [id number] cc: Latosha Olmstead NP Patient Name: AISLINN WHEELER MR#: [id number] : 1960 Exam Date: 04/17/2024 Ordering Doctor: [...] brain cancer at age 58. LOCATION: The [facility] BREAST COMPOSITION: The breasts are heterogeneously dense,which [...] M.D. Signed By:04/17/24 1240 DD/ 1239 TD/TT: Care Asst: Latosha Olmstead NP CLINISYNC IMAGING Final Result from Last 3 Months or Most Recently Relevant to Health Maintenance Insurance [facility] MEDICARE ADVANTAGE Care Teams Insulating Machine Operator Relationship Specialty Start Date End Date Unallocated, Noms Yuki, [address] [place], [place] [id number] PCP - General Family Medicine 02/03/25
--- OUTSIDE RECORDS SUMMARY | 2025-04-16 18:51 | XMS_ITS | Encounter Summary ---
Author Organization [facility] Address [address] [place] [address] Care Team Providers Care Weapons Electrical Engineering Officer Name Role Phone Latosha Olmstead NP Unavailable [phone] Kofi Gotti MD Primary Care Provider Ninfa Canela MA Unavailable [phone] Unallocated, Noms Provider Primary Care Provi emiliana Encounter Details Date Type Department Care Team (Late st Contact Info) Description 10/24/2024 Abstract [facility] [address] [place] [address] Latosha Olmstead, CHIEF CLERK [address] [place] [address] Social History Tobacco Use Types Packs/Day Years [...] How often do you attend chur or scientologist services? Never 10/11/2023 Do you belong to any clubs o r organizations such as religion groups, unions, fraternal or athletic groups, or [...] Recorded Patient Health Questionnaire-2 Score 0 10/24/2024 [facility] of Occupat ional [...] as of this encounter Care Teams Weapons Electrical Engineering Officer Relationship Specialty Start Date End Date Kofi Gotti MD [address] [place] [address] PCP - General Family Medicine 06/20/24 02/02/25 Unallocated, Jah Mirza MD [address] [place] [address] PCP - General Family Medicine 02/03/25 Latosha Olmstead NP [address] [place] [address] Nurse Practitioner Family Medicine 06/11/24 02/02/25 Ninfa Canela, JOHNNY [address] [place] [address] Family Medicine 09/13/24 01/30/25 documented as of this encounter
--- OUTSIDE RECORDS SUMMARY | 2025-04-16 18:51 | XMS_ITS | Encounter Summary ---
Author Organization [facility] tem Address [id number] [address] [place] [address] Care Team Providers Care Multimedia Educational Specialist Name Role Phone Kapil Marr MD Primary Care Provider [phone] Encounter Details Date Type Department Care Team (Late st Contact Info) Description 10/04/2023 Telephone [facility] [address] [place] [phone] Gina Jarvis CNA Social History Tobacco Use [...] help finding a [facility] career center and/or a training program? No [...] Description 06/18/2025 12:15 PM EDT Office Visit [facility] [address] [place] [address] Gertrude Li, PAJuan JoseC [address] [place] [address] documented as of this encounter Visit Diagnoses Not on filedocumented in this encounter Care Teams Multimedia Educational Specialist Relationship Specialty Start Date End Date Kapil Marr MD [address] [facility], [place] [address] PCP - General Family Medicine 02/19/25 documented as of this encounter
--- OUTSIDE RECORDS SUMMARY | 2025-04-16 18:51 | XMS_ITS | Encounter Summary ---
Author Organization [facility] Address [address] [place] [address] Care Team Providers Care Braille Operator Name Role Phone Latosha Olmstead NP Unavailable [phone] Kofi Gotti MD Primary Care Provider Ninfa Canela MA Unavailable [phone] Unallocated, Noms Provider Primary Care Provi emiliana Encounter Details Date Type Department Care Team (Late st Contact Info) Description 11/24/2024 External Result Encounter [facility] External Department Unsolicited Cory Angeles, DPM [address] [address] Social History Tobacco Use Types [...] any clubs o r organizations such as jehovah's witness groups, unions, fraternal or athletic groups, or [...] Recorded Patient Health Questionnaire-2 Score 2 11/18/2024 [facility]ational Stress Questionnaire Answer Date [...] Raf Potter M.D.11/24/2024 2:48 PM Dictation Location: [facility] Transcribed By: [facility] 11/24/24 1448 Dictated By: Raf Potter MD 11/24/24 1446 Signed By: <Electronically signed by Raf Potter MD in OV> 11/24/24 1448 Narrative 11/24/2024 2:50 PM EDT [address] [address] XRay Report Signed Patient: Renate Wheeler MR#: [id number] 01 : 1960 Acct:[id number] Age/Sex: 64 / F ADM Date: 11/23/24 Loc: Room: [address] [place] [address] Type: ADM IN Attending Dr: Diane Smith [...] Procedure Note Radiology, Radiologist, MD - 11/24/2024 [place] [id number] XRay Report Signed Patient: Renate Wheeler MMR#: [id number] 01 : 8Acct:[id number] Age/Sex: 64 / FADM Date: 11/23/24 Loc: Room: [id number]: ADM IN Attending Dr: Diane Smith MD [...] Raf Potter M.D.11/24/2024 2:48 PM Dictation Location: [place] [address] Transcribed By: [facility] 11/24/24 1448 Dictated By: Raf Potter MD [...] documented as of this encounter Care Teams Braille Operator Relationship Specialty Start Date End Date Kofi Gotti MD [address] [place] [address] PCP - General Family Medicine 06/20/24 02/02/25 Unallocated, Noms Provider, MD Raman [facility] [place] [address] PCP - General Family Medicine 02/03/25 Latosha Olmstead NP [address] [place] [address] Nurse Practitioner Family Medicine 06/11/24 02/02/25 Ninfa Canela MA [address] [place] [address] Family Medicine 09/13/24 01/30/25 documented as of this encounter
--- OUTSIDE RECORDS SUMMARY | 2025-04-16 18:51 | XMS_ITS | Encounter Summary ---
Author Organization [facility] Address [address] [place] [address] Care Team Providers Care Art Coordinator Name Role Phone Latosha Olmstead NP Unavailable [phone] Kofi Gotti MD Primary Care Provider [phone] Ninfa Canela MA Unavailable [phone] Unallocated, Noms Provider Primary Care Provi emiliana Reason for Visit * Reason Comments Med Change Request Encounter Details Date Type Department Care Team (Late st Contact Info) Description 09/11/2024 [facility]ill [facility] [address] [place] [address] Latosha Olmstead, ENVELOPE MACHINE OPERATOR [address] [place] [address] Type 2 diabetes mellitus with diabetic neuropathy, with long-term current use of insulin (HCC); Type 2 diabetes mellitus with hyperglycemia, with long-term current use of insulin ([facility]) Social History Tobacco Use Types Packs/Day Years [...] often do you attend chur ch or anabaptist services? Never 10/11/2023 Do you belong to [...] Recorded Patient Health Questionnaire-2 Score 2 01/17/2024 [facility] - Occupational Stress [...] documented as of this encounter Care Teams Art Coordinator Relationship Specialty Start Date End Date Kofi Gotti MD [address] [place] [address] PCP - General Family Medicine 06/20/24 02/02/25 Unallocated, Noms Provider, [address] [place] [address] PCP - General Family Medicine 02/03/25 Latosha Olmstead NP [address] [place] [address] Nurse Practitioner Family Medicine 06/11/24 02/02/25 Ninfa Canela, JOHNNY [address] [place] [address] Family Medicine 09/13/24 01/30/25 documented as of this encounter
--- OUTSIDE RECORDS SUMMARY | 2025-04-16 18:51 | XMS_ITS | Encounter Summary ---
Author Organization [facility] Address [address] [place] [address] Care Team Providers Care Planner Intern Name Role Phone Latosha Olmstead NP Unavailable [phone] Kofi Gotti MD Primary Care Provider Ninfa Canela MA Unavailable [phone] Unallocated, Noms Provider Primary Care Provi emiliana Encounter Details Date Type Department Care Team (Late st Contact Info) Description 11/24/2024 Abstract [facility] [address] [place] [address] Cory Angeles DPM [address] [address] Social History Tobacco Use Types [...] Recorded Patient Health Questionnaire-2 Score 2 11/18/2024 [facility] - Occupational Stress [...] documented as of this encounter Care Teams Planner Intern Relationship Specialty Start Date End Date Kofi Gotti MD [address] [place] [address] PCP - General Family Medicine 06/20/24 02/02/25 Unallocated, Noms Yuki, [address] [facility] [place] [address] PCP - General Family Medicine 02/03/25 Latosha Olmstead NP [address] [place] [address] Nurse Practitioner Family Medicine 06/11/24 02/02/25 Ninfa Canela MA [address] [place] [address] Family Medicine 09/13/24 01/30/25 documented as of this encounter
--- OUTSIDE RECORDS SUMMARY | 2025-04-16 18:51 | XMS_ITS | Encounter Summary ---
Author Organization [facility] Address [address] [place] [address] Care Team Providers Care Roustabout Pusher Name Role Phone Kofi Gotti MD Primary Care Provider [phone] Kofi Gotti MD Primary Care Provider [phone] Lissette Matamoros LPN Unavailable Unavailable Unallocated, Noms Provider Primary Care Provi emiliana Latosha Olmstead HADOOP ANALYST Unavailable [phone] Kofi Gotti MD Primary Care Provider [phone] Ninfa Canela MA Unavailable [phone] Unallocated, Noms Provider Primary Care Provi [...] PM EST Narrative 10/02/2023 2:37 PM EST [address] [address] XRay Report Signed Patient: RENATE CARNES MR#: [id number] : 1960 Acct:[id number] Age/Sex: 63 / F ADM Date: Loc: Attending Dr: Ramon Enrique D.P.M. Ordering Physician: Ramon Enrique D.P.M. Date of Service: 10/02/23 Procedure(s): XR foot LT min 3V Accession Number(s): [id number] cc: Latosha Olmstead HADOOP ANALYST; Ramon Enrique D.P.M. [place] [address] Patient Name: RENATE CARNES MRN: [id number] date: 1960 Sex: F Assigned Patient Location: Current Patient Location: Accession/Order Number: [id number] Exam Date: 10/02/2023 02:08 Report Date: 10/02/2023 14:34 At the request of: RAMON ENRIQUE Procedure: XR foot LT min 3V STUDY: XR foot LT min 3V, [id number] HISTORY: LEFT FOOT PAIN COMPARISON: Left foot [...] Signed By: 10/02/23 1437 DD/ 33 TD/TT: Director Of Public Relations: Procedure Note Radiology, Radiologist, - 10/25/2023 [place] [address] XRay Report Signed Patient: RENATE CARNES MMR#: [id number] : 1960cct:[id number] Age/Sex: 63 / FADM Date: Loc: Attending Dr: Ramon Enrique D.P.M. Ordering Physician: Ramon Enrique D.P.M. Date of Service: 10/02/23 Procedure(s): XR foot LT min 3V Accession Number(s): [id number] cc: Latosha Olmstead HADOOP ANALYST; Ramon Enrique D.P.M. The [place] [id number] Patient Name: RENATE CARNES MRN: [id number] date: 1960 Sex: F Assigned Patient Location: Current Patient Location: Accession/Order Number: [id number] Exam Date: 10/02/2023 02:08 Report Date: 10/02/2023 14:34 At the request of: RAMON ENRIQUE Procedure: XR foot LT min 3V STUDY: XR foot LT min 3V, [id number] HISTORY: LEFT FOOT PAIN COMPARISON: Left foot [...] Burnett Signed By:10/02/23 1437 DD/ 1434 TD/TT: Director Of Public Relations: us Generic External Data Provider [facility] Final Result documented in this encounter Visit Diagnoses Not on filedocumented in this encounter Care Teams Roustabout Pusher Relationship Specialty Start Date End Date Kofi Gotti MD PCP - General Family Medicine 02/10/23 10/08/23 Kofi Gotti MD [address] [place] [address] PCP - General Family Medicine 10/09/23 06/10/24 Unallocated, Jah Mirza MD [address] [place] [address] PCP - General Family Medicine 06/11/24 06/19/24 Kofi Gotti MD [address] [place] [address] PCP - General Family Medicine 06/20/24 02/02/25 Unallocated, Jah Mirza MD [address] [facility] [place] [address] PCP - General Family Medicine 02/03/25 Lissette Matamoros LPN Licensed Practical Nurse Family Medicine 01/22/2401/24/24 Latosha Olmstead NP [address] [place] [address] Nurse Practitioner Family Medicine 06/11/24 02/02/25 Ninfa Canela MA [address] [place] [address] Family Medicine 09/13/24 01/30/25 documented as of this encounter
--- OUTSIDE RECORDS SUMMARY | 2025-04-16 18:51 | XMS_ITS | Encounter Summary ---
Author Organization [employer] Address [id number] [address] [place] [address] Care Team Providers Care Improvement Rn Name Role Phone Kapil Marr MD Primary Care Provider [phone] Encounter Details Date Type Department Care Team (Late st Contact Info) Description 01/01/2024 Orders Only [facility]ne[facility] [address] [address] Ref Prov, [place] [address] Social History Tobacco Use Types Packs/Day Years [...] you attend chur ch or confucianist services? Patient declined 08/13/2020 Do you belong [...] Recorded Do you need help finding a [facility] career center and/or a training program? [...] Description 06/18/2025 12:15 PM EDT Office Visit [facility] [address] [place] [address] Gertrude Li, PROMISE [address] [place], [place] [phone] documented as of this encounter Procedures Procedure [...] on filedocumented in this encounter Care Teams Improvement Rn Relationship Specialty Start Date End Date Kapil Marr MD [address] [facility], [place] [address] PCP - General Family Medicine 02/19/25 documented as of this encounter
--- OUTSIDE RECORDS SUMMARY | 2025-04-16 18:51 | XMS_ITS | Encounter Summary ---
Author Organization [facility] Address [address] [place] [address] Care Team Providers Care Rn Cardiology Name Role Phone Latosha Olmstead NP Unavailable [phone] Kofi Gotti MD Primary Care Provider Ninfa Canela MA Unavailable [phone] Unallocated, Noms Provider Primary Care Provi emiliana Encounter Details Date Type Department Care Team (Late st Contact Info) Description 12/25/2024 Orders Only [facility] [address] [place] [address] [place] [address] [place] [address] Social History Tobacco Use Types [...] any clubs o r organizations such as spiritism groups, unions, fraternal or athletic groups, or [...] 2 11/18/2024 [facility]at ionmo Health - Occupational Stress [...] documented as of this encounter Care Teams Rn Cardiology Relationship Specialty Start Date End Date Kofi Gotti MD [address] [place] [address] PCP - General Family Medicine 06/20/24 02/02/25 Unallocated, Jah Mirza MD [address] [place] [address] PCP - General Family Medicine 02/03/25 Latosha Olmstead NP [address] [place] [address] Nurse Practitioner Family Medicine 06/11/24 02/02/25 Ninfa Canela, JOHNNY [address] [place] [address] Family Medicine 09/13/24 01/30/25 documented as of this encounter
--- OUTSIDE RECORDS SUMMARY | 2025-04-16 19:04 | XMS_ITS | CCD ---
Author Organization [facility] Care Team Providers Care Chemical Processor Name Role Phone Pcp, No Primary Care Provider Unavailabl e AGUSTO OLMSTEAD Primary Care Physician [phone] ZaRonan russoyanet Unavailable AICHMUNDO, MANAGER CONTROL AGUSTO Attending Unavailable AICHHOLZ, MANAGER CONTROL AGUSTO Consulting Unavailable AICHHOLZ, MANAGER CONTROL AGUSTO Admitting Unavailable AICHHOLZ, MANAGER CONTROL AGUSTO Primary Care Unavailable RAMON ENRIQUE Attending Unavailable RAMON ENRIQUE Admitting Unavailable REQUEST, DR DANNIE LISTED Primary Care Unavaila georgi DELVALLE, DR THANH García Consulting Unavailable RAMON ENRIQUE Consulting Unavailable AICHHOLZ, MANAGER CONTROL AGUSTO Primary Care Unavailable RAMON ENRIQUE Admitting Unavailable RAMON ENRIQUE Attending Unavailable AICHHOLZ, MANAGER CONTROL AGUSTO Primary Care Unavailable LEON, H Consulting Unavailable FAWWAD, AMADO H Admitting Unavailable FAWWAPrimo AMADO H Attending Unavailable AICHHOLZ, MANAGER CONTROL AGSUTO Consulting Unavailable AICHHOLZ, MANAGER CONTROL AGUSTO Admitting Unavailable AICHHOLZ, MANAGER CONTROL AGUSTO Attending Unavailable AICHHOLZ, MANAGER CONTROL AGUSTO Primary Care Unavailable RAMON ENRIQUE Attending Unavailable AICHHOLZ, MANAGER CONTROL AGUSTO Primary Care Unavailable RAMON ENRIQUE Admitting Unavailable WEST, DR NUBIA Carlos Consulting Unavailable RAMON ENRIQUE Consulting Unavailable AICHHOLZ, MANAGER CONTROL AGUSTO Primary Care Unavailable BHARAT, DR NUBIA Carlos Consulting Unavailable CAMMIE SEGURA Admitting Unavailable CAMMIE SEGURA Attending Unavailable CAMMIE SEGURA Consulting Unavailable AICHHOLZ, MANAGER CONTROL AGUSTO Primary Care Unavailable AICHHOLZ, MANAGER CONTROL AGUSTO Attending Unavailable AICHHOLZ, MANAGER CONTROL AGUSTO Admitting Unavailable BHARAT, DR NUBIA Carlos Consulting Unavailable AICHHOLZ, MANAGER CONTROL AGUSTO Consulting Unavailable AICHHOLZ, MANAGER CONTROL AGUSTO Primary Care Unavailable COLTON, CAMMIE Admitting Unavailable COLTONCAMMIE Attending Unavailable COLTON, CAMMIE Consulting Unavailable AICHHOLZ, MANAGER CONTROL AGUSTO Primary Care Unavailable AICHHOLZ, MANAGER CONTROL AGUSTO Attending Unavailable AICHHOLZ, MANAGER CONTROL AGUSTO Consulting Unavailable AICHHOLZ, MANAGER CONTROL AGUSTO Admitting Unavailable AICHHOLZ, MANAGER CONTROL AGUSTO Primary Care Unavailable BHARAT, DR NUBIA Cralos Consulting Unavailable COLTON, CAMMIE Admitting Unavailable COLTON, CAMMIE Attending Unavailable COLTON, CAMMIE Consulting Unavailable AICHHOLZ, MANAGER CONTROL AGUSTO Primary Care Unavailable ZIEBER, DR THANH García Consulting Unavailable HIGHLANDER, PETER D Attending Unavailable HIGHLANDER, PETER D Admitting Unavailable HIGHLANDER, PETER D Consulting Unavailable AICHHOLZ, MANAGER CONTROL AGUSTO Primary Care Unavailable FOSTER ., DR PAGE Admitting Unavailable FOSTER ., DR PAGE Attending Unavailable FOSTER ., DR PAGE Consulting Unavailable ZIEBER, DR THANH García Consulting Unavailable HIGHLANDER, PETER D Admitting Unavailable AICHHOLZ, MANAGER CONTROL AGUSTO Primary Care Unavailable ZIEBER, DR THANH García Consulting Unavailable HIGHLANDER, PETER D Attending Unavailable HIGHLANDER, PETER D Consulting Unavailable AICHHOLZ, MANAGER CONTROL AGUSTO Primary Care Unavailable AICHHOLZ, MANAGER CONTROL AGUSTO Attending Unavailable AICHHOLZ, MANAGER CONTROL AGUSTO Consulting Unavailable AICHHOLZ, MANAGER CONTROL AGUSTO Admitting Unavailable ZIEBER, DR THANH García Consulting Unavailable AICHHOLZ, MANAGER CONTROL AGUSTO Primary Care Unavailable ZIEBER, DR THANH García Consulting Unavailable HIGHLANDER, PETER D Attending Unavailable HIGHLANDER, PETER D Admitting Unavailable HIGHLANDER, PETER D Consulting Unavailable AICHHOLZ, MANAGER CONTROL AGUSTO Primary Care Unavailable MORENITAEBER, DR THANH García Consulting Unavailable COLTON, CAMMIE Admitting Unavailable COLTON, CAMMIE Attending Unavailable COLTON, CAMMIE Consulting Unavailable WANDY .RAQUEL Admitting Unavailable WANDY .RAQUEL Attending Unavailable KASIE CANDELARIO Consulting Unavailable REQUEST, DR PANDEY LISTED Primary Care Unavaila georgi SABA .RAQUEL Consulting Unavailable LYLE MATIAS Consulting Unavailable AICHHOLZ, MANAGER CONTROL AGUSTO Primary Care Unavailable HAY ., DR CARMONA Admitting Unavailable HAY ., DR CARMONA Attending Unavailable HAY ., DR CARMONA Consulting Unavailable TONY LUO Consulting Unavailable NUBIA BATEMAN Consulting Unavailable AICHHOLZ, MANAGER CONTROL AGUSTO Primary Care Unavailable HIGHLANDER, PETER D Admitting Unavailable HIGHLANDER, PETER D Attending Unavailable HIGHLANDER, PETER D Admitting Unavailable AICHHOLZ, MANAGER CONTROL AGUSTO Primary Care Unavailable WILLYANDER, RAMON Tillman Attending Unavailable HIGHLANDER, RAMON Tillman Admitting Unavailable AICHHOLZ, MANAGER CONTROL AGUSTO Primary Care Unavailable ADELIA, DR THANH García Consulting Unavailable HIGHLANDER, RAMON Tillman Attending Unavailable HIGHLANDER, RAMON Tillman Consulting Unavailable HIGHLANDER, RAMON Tillman Admitting Unavailable AICHHOLZ, MANAGER CONTROL AGUSTO Primary Care Unavailable YUKO, RAMON Tillman Attending Unavailable YUKO, RAMON Tillman Attending Unavailable HIGHLANDER, RAMON Tillman Admitting Unavailable REQUEST, DR NONE LISTED Primary Care Unavaila ble WILLYANDER, RAMON Tillman Admitting Unavailable AICHHOLZ, MANAGER CONTROL AGUSTO Primary Care Unavailable HIGHLANDER, RAMON Tillman Attending Unavailable HIGHLANDER, RAMON Tillman Admitting Unavailable AICHHOLZ, MANAGER CONTROL AGUSTO Primary Care Unavailable HIGHLANDER, RAMON Tillman Attending Unavailable HIGHLANDER, RAMON Tillman Attending Unavailable HIGHLANDER, RAMON Tillman Admitting Unavailable REQUEST, DR NONE LISTED Primary Care Unavaila georgi PALMA, DR NELL Salazar Attending Unavailabl e ADELIA, DR THANH García Consulting Unavailable REQUEST, NONE LISTED Primary Care Unavaila georgi PALMA, DR NELL Salazar Admitting Unavailabl e GRECHNY ., GIANNI PETIT Consulting Unavailabl e VIEIRA ., DR NENO Rodriugez Consulting Unavailable VIEIRA ., DR NENO Rodriguez Admitting Unavailable VIEIRA ., DR NENO Rodriguez Attending Unavailable REQUEST, NONE LISTED Primary Care Unavaila ble GRECHNY ., GIANNI PETIT Consulting Unavailabl e HIGHLANDER, RAMON D Procedure Practitioner Unava TONY Cartagena Consulting Unavailable RAMON ENRIQUE Consulting Unavailable BRANDO, KWADWO Consulting Unavailable NUBIA BAETMAN Unavailable GURU DAVISON Consulting Unavailable FRED, KAPIL Consulting Unavailable ROSELIA ., LISA JIMENEZ Consulting Unavailable GEMBUSCAMDEN Consulting Unavailable REJI SMALLWOOD Consulting Unavailable AICHHOLZ, MANAGER CONTROL AGUSTO Primary Care Unavailable NAYLOR, DR NUBIA Carlos Consulting Unavailable CAMMIE SEGURA Admitting Unavailable CAMMIE SEGURA Attending Unavailable CAMMIE SEGURA Consulting Unavailable YUKO, RAMON Tillman Admitting Unavailable AICHHOLZ, MANAGER CONTROL AGUSTO Primary Care Unavailable ADELIA, DR THANH García Consulting Unavailable YUKO, RAMON Tillman Attending Unavailable YUKO, RAMON Tillman Consulting Unavailable Fitt, Brigette Unavailable Mapus, Sohaildra Unavailable Lisa Olvera MD Unavailable Aysha, Agusto Primary Care Provider Vern TAVERAS, Lisa Pulido Unavailable Lisa Olvera Referring Unavailable Lue, Lisa M. Admitting Unavailable Lue, Lisa M. Attending Unavailable CATALINAPROMISE Attending Unavailab le CATALINA, PROMISE HEIDY Jennifer Admitting Unavailab le CATALINA, PROMISE HEIDY E Attending Unavailab le CATALINA, PROMISE HEIDY E Admitting Unavailab le CATALINA, PROMISE HEIDY E Attending Unavailab le CATALINA, PROMISE HEIDY E Admitting Unavailab le CATALINA, PROMISE JOHNS E Attending Unavailab le CATALINA, PROMISE Rodriguez Attending Unavailab le Lue, Lisa Montiel Attending Unavailable LuLisa rodriguez Attending Unavailable Lue, Lisa Montiel Attending Unavailable CATALINA, PROMISE Rodriguez Attending Unavailab le AICHHOLAGUSTO Salas Attending Unavailable CATALINA, PROMISE Rodriguez Attending Unavailab Lisa Anders Referring Unavailable Lisa Olvera Attending Unavailable CATALINA, PROMISE Rodriguez Attending Unavailab le RICHAGUSTO FLOWER Attending Unavailable Aysha Agusto Primary Care Provider Aysha Agusto Unavailable TAURUS BALLARD Attending Unavailable ROBUASSALYTAURUS Attending Unavailable ROBUASSALYTAURUS Attending Unavailable ROBUASSALY TAURUS Admitting Unavailable Aichholz, Agusto Primary Care Provider Unavailabl e Aichholz, Agusto Unavailable Unavailable SWETA CH Referring Unavailable AGUSTO OLMSTEAD Primary Care Unavailable Kofi Gotti MD Primary Care Provider TAURUS BALLARD Referring Unavailable JUANITO BARNARD Attending Unavailable SLOYADIELICKCARMENZA Attending Unavailable DENYICKCARMENZA Attending Unavailable Aichholz LUIS, Agusto Unavailable Kofi Gotti MD Primary Care Provider Aysha DIRECTOR OF COUNTERINTELLIGENCE-MANAGER CONTROLAgusto Primary Care Provider Maria Luisa Olmsteada Walter [facility] Yoni TAVERAS, Alejandro Admit Provider Yoni TAVERAS, Alejandro Attending Provider Gilmer Tai MD Attending Provider [phone] Ladonna TAVERAS, Akin Other Provider Abhishek Castañeda MD Other Provider Ninfa Canela MA Unavailable Unavailable Aichholz DIRECTOR OF COUNTERINTELLIGENCEKIARA, Agusto Watson Primary Care Provider Agusto Olmstead [facility] Emergency Provider Yoni TAVERAS, Alejandro Admit Provider Gilmer Tai MD Attending Provider Ladonna TAVERAS, Akin Other Provider Abhishek Castañeda MD Other Provider Jr Layne DO Emergency Provider Diane Smith MD Admit Provider Diane Smith MD Attending Provider Tyler Valencia MD Other Provider Karthik BAKER, Cory Shoemaker Other Provider Demian Dorantes MD Attending Provider [phone] AICHHOLZ, AGUSTO Attending Unavailable AICHHOLZ, AGUSTO Attending Unavailable AICHHOLZ, AGUSTO Attending Unavailable AICHHOLZ, AGUSTO Attending Unavailable CORY ANGELES Attending Unavailable AICHHOLZ, AGUSTO Attending Unavailable AICHHOLZ, AGUSTO Attending Unavailable AICHHOLZ, AGUSTO Attending Unavailable AICENRICO, AGUSTO Attending Unavailable Agusto Olmstead Primary Care Provider Jr Layne DO Emergency Provider Unavailable Luis TAVERAS, Diane Other Provider Tyler Valencia MD Attending Provider Skip LE, Suzy Other Provider Unavailable Nasim Alcazar DO Other Provider [phone] Leonila TAVERAS, Sal Other Provider Betina TAVERAS, Zackery Page Other Provider David TAVERAS, Annette Other Provider Rudolph TAVERAS, Clinton Other Provider Aislinn Diaz APRN Other Provider [phone] Dami TAVERAS, Shyann Other Provider Jerald TAVERAS, Felecia Oro Other Provider Jeffrey TAVERAS, Shankar Other Provider Evans [facility], Julia Villafana Other Provider Galo Mcmullen MD Attending Provider Jori Garcia DO Attending Provider [phone] Jori Garcia Attending Unavailable Jori Garcia Admitting Unavailable Akin Dougherty Consulting Unavailable Alejandro Vallejo Admitting Unavailable Gilmer Tai Attending Unavailable Aysha, Agusto J Primary Care Unavailable Abhishek Castañeda Consulting Unavailable Richmundo, Agusto J Primary Care Unavailable Diane Smith Admitting Unavailable Tyler Valencia Consulting Unavailable Demian Dorantes Attending Unavailab Cory Ling Consulting Unavailable Kapil Maxwell MD Primary Care Provider Celestine TAVERAS, Eli Attending Provider NO FAMILY, PHYSICIAN Primary Care Provider Unava ilable SWETA CH Attending Unavailable AYSHA, AGUSTO J Referring Unavailable AICHHOLZ, AGUSTO J Primary Care Unavailable SWETA CH Attending Unavailable AYSHA, AGUSTO J Referring Unavailable AICHANILAZ, AGUSTO J Primary Care Unavailable SWETA CH Attending Unavailable AICHHOLZ, AGUSTO J Referring Unavailable AGUSTO OLMSTEAD Primary Care Unavailable SWETA CH Attending Unavailable AGUSTO OLMSTEAD Referring Unavailable AGUSTO OLMSTEAD Primary Care Unavailable ZACKERY MIRANDA Admitting Unavailable ZACKERY MIRANDA Attending Unavailable AGUTSO OLMSTEAD Referring Unavailable AGUSTO OLMSTEAD Primary Care Unavailable ZACKERY MIRANDA Attending Unavailable ZACKERY MIRANDA Referring Unavailable KAPIL MAXWELL Primary Care Unavailable SWETA CH Attending Unavailable AGUSTO OLMSTEAD Referring Unavailable KAPIL MAXWELL Primary Care Unavailable Allergies Allergy Classification Reported Allergen(s) Allergy Type Date of Onset Reaction(s) Facility Latex (2 sources) Latex Substance Allergy 0 Rash [facility] (20 sources) Latex; Translations: [Latex] Allergy to substance 0 Eruption of skin (disorder), Rash [facility] Medications Current Medications Medication Drug [...] on above: Take 2 tablets by mo [facility] every 6 hours as needed for pain. acetaminophen 325 mg / HYDROcodone bitartrate 7.5 mg oral tablet (20 sources) Opioid Agonist Start: 03-26-2025 take 1 tablet by mouth three times daily as needed for pain HYDROcodone-acetami nophen (NORCO) 7.5-325 mg per tablet Indications: Reflex sympathetic dystrophy of right upper extremity Take 1 tablet by mouth 3 (three) times a day as needed for pain. 90 tablet 03/26/2025 Active Start: 02-24-2025 take 1 tablet by rain three times daily as needed for pain HYDROcodone-acetaminophen (NORCO) 7.5-32 5 mg per tablet Indications: Reflex sympathetic dystrophy of right upper extremity Take 1 tablet by mouth 3 (three) times a day as needed for pain. 90 tablet 02/24/2025 Active Start: 02-24-2025 take 1 tablet by rain th three times daily as needed for pain HYDROcodone-acetaminophen (NORCO) 7.5-32 5 mg per tablet Indications: Reflex sympathetic dystrophy of right upper extremity Take 1 tablet by mouth 3 (three) times a day as needed for pain. 90 tablet 02/24/2025 Active Start: 01-25-2025 End: 02-11-2025 take 1 tablet by mouth three times daily as needed for pain HYDROcodone-acetaminophen (NORCO) 7.5-32 5 mg per tablet Indications: Reflex sympathetic dystrophy of right upper extremity Take 1 tablet by mouth 3 (three) times a day as needed for pain. 90 tablet 01/25/2025 02/11/2025 Discontinued (Reorder) Start: 01-25-2025 take 1 tablet by rain th three [...] filldate 90 tablet 12/24/2024 Active Start: 11-24-2024 End: 03-13-2025 take 1 tablet by mouth three times daily as needed for pain HYDROcodone-acetaminophen (NORCO) 7.5-32 5 mg per tablet Indications: Reflex sympathetic dystrophy of right upper extremity Take 1 tablet by mouth 3 (three) times a day as needed for pain. 90 tablet 11/24/2024 03/13/2025 Discontinued (Reorder) Start: 11-24-2024 take 1 tablet by rain [...] Every 8 hours September 04, 2024 12:19pm Complies with drug therapy Start: 08-25-2024 End: 09-13-2024 take 1 tablet [...] by mouth three times daily as needed Hydrocodone-Acetaminophen 7.5-325 mg tab let Discontinued 1 TAB PO Three times daily as needed June 05, 2024 12:00am September 04, 2024 12:22pm Start: 09-08-2022 take 1 tablet by rain [...] for wheezing/shortness of breath. AMBULATORY COMPOUNDED MEDICATION (16 sources) Start: 08-22-19 AMBULATORY COMPOUNDED MEDICATION Apply 120 g topically See Admin Instructions. Formula 8E Apply 1-2 grams topically to affected area three to four times daily 120 g 2 08/22/2018 Active amoxicillin 500 mg oral capsule (12 sources) Penicillin-class Antibacterial Start: 01-28-20 End: 02-04-20 take 1 capsule by mouth in the [...] mg / clavulanate 125 mg oral tablet (6 sources) Penicillin-class Antibacterial Start: 11-26-2024 End: 12-04-2024 amoxicillin-clavulanate (Augmentin) 875-125 MG tablet 1 tablet 11/26/2024 12/04/2024 Discontinued (Therapy completed) Start: 11-26-2024 End: 03-17-2025 take 1 tablet by mouth twice daily Amoxicillin-Pot Clavulanate 875-125 mg tablet Discontinued 1 TAB PO Twice daily 10 November 26, 2024 12:00am March 17, 2025 2:08pm atorvastatin 20 mg oral tablet (20 sources) HMG-CoA Reductase Inhibitor Start: 08-12-2024 End: 04-27-2025 take 1 tablet by mouth once daily Atorvastatin 20 mg tablet Active 20 MG PO Daily September 06, 2024 1:00am Complies with drug therapy Budesonide / formoterol (17 sources) Corticosteroid, beta2-Adrenergic Agonist budesonide-formoter oL (SYMBICORT) 80-4.5 mcg/actuation inhaler Active take 2 [...] take 1 tablet by mouth once daily as needed Cetirizine 10 mg tablet Active 10 MG PO Daily as needed for allergy symptoms June 05, 2024 12:00am Complies with drug therapy Start: 04-18-2024 End: 05-18-2024 take 1 tablet [...] once daily for 3 days. Continuous Glucose Change Management Administrator (Dexcom G7 Change Management Administrator) device (15 sources) Start: 09-11-2024 End: 12-04-2024 Continuous Glucose Change Management Administrator (Dexcom G7 Change Management Administrator) device Indications: Type 2 diabetes mellitus with diabetic neuropathy, with long-term current use of insulin (CMS/HCC) , Type 2 diabetes mellitus with hyperglycemia, with long-term current use of insulin (CMS/HCC) , care home (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 (CMS/HCC) 1 each Daily 1 each 09/11/2024 12/04/2024 Discontinued (Cost of medication) Start: 09-11-2024 End: 09-11-2025 Continuous Glucose Change Management Administrator (Dexcom G7 Change Management Administrator) device Indications: Type 2 diabetes mellitus with diabetic neuropathy, with long-term current use of insulin (CMS/HCC) , Type 2 diabetes mellitus with hyperglycemia, with long-term current use of insulin (CMS/HCC) , care home (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 (CMS/HCC) 1 each Daily 1 each 09/11/2024 09/11/2025 Active End: 09-11-2024 Continuous Glucose Change Management Administrator (Dexcom G7 Change Management Administrator) device 1 each Daily 09/11/2024 Discontinued (Reorder) Continuous Glucose Sensor (Dexcom G7 Sensor) misc (15 sources) Start: 09-11-2024 End: 12-04-2024 Continuous Glucose Sensor (Dexcom G7 Sensor) misc Indications: Type 2 diabetes mellitus with diabetic neuropathy, with long-term current use of insulin (CMS/HCC) , Type 2 diabetes mellitus with hyperglycemia, with long-term current use of insulin (CMS/HCC) , 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 (CMS/HCC) 1 each Daily 9 each 3 09/11/2024 12/04/2024 Discontinued (Cost of medication) Start: 09-11-2024 End: 12-10-2024 Continuous Glucose Sensor (D excom G7 Sensor) misc Indications: Type 2 diabetes mellitus with diabetic neuropathy, with long-term current use of insulin ([facility]) , Type 2 diabetes mellitus with hyperglycemia, with long-term current use of insulin ([facility]) , care home (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 ([facility]) 1 each Daily 9 each 3 09/11/2024 12/10/2024 Active End: 09-11-2024 Continuous Glucose Sensor (D excom G7 Sensor) mis 1 each 1 (one) time each day 09/11/2024 Discontinued (Reorder) 1 ml denosumab 60 mg/ml prefilled syringe (20 sources) RANK Ligand Inhibitor inject 1 mL by subcutaneous injection once denosumab (PROLIA) 60 mg/mL syringe injection Inject 1 mL (60 mg total) under the skin once. Active denosumab (Proli a) 60 MG/ML solution prefilled syringe Inject 60 mg under the skin every 6 (six) months Active Dexcom G6 Sensor - (6 sources) [...] on above: Take 1 capsule by mo [facility] two times a day. ergocalciferol 1.25 mg oral capsule (5 sources) Provitamin D2 Compound Start: 09-08-2024 take 1 capsule by mouth every week Ergocalciferol (Vitamin D2) 1,250 mcg (50,000 unit) capsule Active 1250 MCG PO every week 9 60 September 08, 2024 1:00am Complies with drug therapy estradiol 0.1 mg/ml vaginal cream (7 sources) Estrogen Start: 05-03-2023 Estrace 0.1 mg/g Cream See Instructions, 42.5 gm, Refill(s) 3, apply pea size amount to urethra/inner vagina 3x/week x 1 month, then 2x/week for maintainence, [id number], 153, cm, 05/03/23 9:52:00 EDT, Height/Length [...] tablet Active 325 MG PO Daily June 05, 2024 12:00am Complies with drug therapy Start: 04-16-2021 take 1 tablet by rain [...] for nasal congestion September 04, 2024 12:18pm Complies with drug therapy Start: 06-24-2024 fluticasone pr opionate (FLONASE) 50 mcg/actuation nasal spray 2 sprays as needed for allergies. 06/24/2024 Active Start: 06-05-2024 End: 09-04-2024 Fluticasone Propionate 50 mcg/actuation spray,suspension Discontinued INTRANASAL June 05, 2024 12:00am September 04, 2024 12:22pm Start: 04-18-2024 End: 05-18-2024 take 2 spray(s) [...] oral tablet (20 sources) Loop Diuretic Start: 03-17-2025 take 1 tablet by mouth once daily Furosemide (Lasix) 40 mg tablet Active 40 MG PO Daily March 17, 2025 12:00am Complies with drug therapy Start: 09-08-2024 End: 03-17-2025 take 1 tablet by mouth twice daily Furosemide 40 mg Tablet Discontinued 40 MG PO BID@0800,1600 60 30 September 08, 2024 1:00am March 17, 2025 2:08pm Insulin Aspart FlexPen (11 sources) Start: 09-21-2022 [...] injectable solution (20 sources) Insulin Analog Start: 025 End: insulin glargine (Lantus) 100 UNIT/ML injection Indications: Type 2 diabetes mellitus with diabetic neuropathy, with long-term current use of insulin ([facility]) , Type 2 diabetes mellitus with hyperglycemia, [...] 01/13/2024 Active lisinopril 10 mg oral tablet (16 sources) Angiotensin Converting Enzyme Inhibitor take 1 tablet by mouth in the morning lisinopriL (PRINIVIL,ZESTRIL) 10 mg tablet Take 1 tablet (10 mg total) by mouth in the morning. Active metFORMIN hydrochloride 1000 mg oral tablet (16 sources) Biguanide take 1 tablet by mouth in the morning, then take 1 tablet by mouth at mealtime metFORMIN (GLUCOPHAGE) 1000 mg tablet Take 1 tablet (1,000 mg total) by mouth in the morning and 1 tablet (1,000 mg total) in the evening. Take with meals. Active 24 hr mirabegron 50 mg extended release oral tablet (1 source) beta3-Adrenergic Agonist Start: 09-21-2022 End: 04-19-2023 take 1 tablet by mouth once daily Myrbetriq 50 mg oral tablet, extended release 50 mg = 1 tab(s), Oral, Daily, X 30 day(s), # 30 tab(s), Refills(s) 6, Pharmacy: [facility], 153, cm, 09/21/22 8:48:00 EST, Height/Length Dosing, 52.5, kg, 09/21/22 8:48:00 EST, Weight Dosing Start Date: 09/21/22 Stop Date: 04/19/23 Status: Ordered nitroglycerin 0.4 mg sublingual tablet (20 sources) Nitrate Vasodilator Start: 08-26-2024 Nitroglycerin 0.4 mg tablet, sublingual Active 0.4 MG SUBLINGUAL Q5M as needed for chest pain September 06, 2024 1:00am Complies with drug therapy 24 hr oxybutynin chloride 5 mg extended release oral tablet (1 source) Cholinergic Muscarinic Antagonist Start: 09-13-2022 End: 04-11-2023 take 1 tablet by mouth once daily oxybutynin 5 mg ER Tab 5 mg = 1 tab(s), Oral, Daily, X 30 day(s), # 30 tab(s), Refills(s) 6, Pharmacy: [facility], 153, cm, 09/13/22 13:38:00 EST, Height/Length Dosing, 52.5, kg, 09/13/22 13:38:00 EST, Weight Dosing Start Date: 09/13/22 Stop Date: 04/11/23 Status: Ordered potassium chloride 10 meq extended release oral capsule (12 sources) Start: 09-08-2022 potassium chloride 10 mEq Cap-ER Refills(s) 0 Start Date: 09/08/22 Status: Ordered pregabalin 150 mg oral capsule (20 sources) Start: 03-26-2025 pregabalin (LYRICA) 150 mg capsule Indications: Complex regional pain syndrome type 1 of right upper extremity Take 1 capsule (150 mg total) by mouth in the morning and 1 capsule (150 mg total) at noon and 1 capsule (150 mg total) in the evening. 90 capsule 1 03/26/2025 Active Start: 01-17-2025 End: 03-13-2025 pregabalin (LYRICA) 150 mg c apsule Indications: Complex regional pain syndrome type 1 of right upper extremity Take 1 capsule (150 mg total) by mouth in the morning and 1 capsule (150 mg total) at noon and 1 capsule (150 mg total) in the evening. 90 capsule 1 01/17/2025 03/13/2025 Discontinued (Reorder) Start: 12-24-2024 End: 01-15-2025 pregabalin (LYRICA) 150 [...] 1 10/18/2024 Active Start: 08-11-2023 End: 10-10-2024 take 1 capsule by mouth every eight hours Pregabalin 150 mg capsule Active 150 MG PO Every 8 hours September 04, 2024 12:19pm Complies with drug therapy Start: 09-08-2022 End: 10-04-2023 pregabalin (Lyrica) 150 [...] times daily. Take 1 capsule by mo [facility] two times a day for 30 [...] tablet (20 sources) Cholinergic Muscarinic Antagonist Start: 3 End: take 1 tablet by mouth in the morning trospium (Sanctura) 20 MG tablet Take 20 mg by mouth in the morning. 03/22/2023 11/18/2024 Discontinued (Therapy completed) vitamin b12 1 mg oral capsule (20 sources) Vitamin B12 Start: take 1 capsule by mouth once daily Cyanocobalamin (Vitamin B-12) 1,000 mcg capsule Active 1000 MCG PO Daily September 08, 2024 1:00am Complies with drug therapy Start: 06-14-2023 End: 06-11-2024 take 1 tablet [...] on above: Take 1,000 mcg by mo [facility] once daily. Completed/Discontinued Medications Medication Drug Class(es) Dates Sig (Normalized) Sig (Original) amLODIPine 5 mg oral tablet (20 sources) Dihydropyridine Calcium Channel Rainer Start: 11-18-2024 End: 02-16-2025 take 1 tablet by mouth once daily Amlodipine 10 mg Tablet Active 10 MG PO Daily November 26, 2024 12:00am Complies with drug therapy Start: 10-24-2024 End: 01-22-2025 take 1 tablet [...] mg by mouth once daily. 09/08/2022 Active calcitriol 0.15793 mg oral capsule (20 sources) Vitamin D3 Analog Start: 06-05-2024 End: 11-23-2024 take 1 capsule by mouth three times weekly Calcitriol 0.25 mcg capsule Discontinued 0.25 MCG PO 3 Times a week June 05, 2024 12:00am November 23, 2024 8:45pm Continuous Blood Gluc Change Management Administrator (Dexcom G6 branner machine tender) device (3 sources) Start: 12-30-2022 End: 04-16-2024 Continuous Blood Gluc Change Management Administrator (Dexcom G6 branner machine tender) device Inject 1 Device under the skin in the morning. 12/30/2022 04/16/2024 Discontinued (Therapy completed) Start: 12-30-2022 Continuous Blo od Gluc Change Management Administrator (Dexcom G6 branner machine tender) device Inject 1 Device under the skin [...] neuropathy, 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 (CMS/HCC) Take 1 capsule (20 mg) by mouth Daily Do not crush or chew. 30 capsule 1 06/11/2024 08/27/2024 Discontinued (Therapy completed) 24 hr metoprolol succinate 50 mg extended release oral tablet (20 sources) beta-Adrenergic Rainer Start: 06-24-2024 End: 04-27-2025 take 1 tablet by mouth once daily Metoprolol Succinate 50 mg tablet extended release 24 hr Active 50 MG PO Daily September 04, 2024 12:28pm Complies with drug therapy Start: 11-08-2023 End: 01-20-2024 take 1 tablet by mouth once daily metoprolol succinate XL (Toprol-XL) 50 MG 24 hr tablet Indications: Essential (primary) hypertension (CMS/HCC) Take 1 tablet (50 mg) by mouth Daily 30 tablet 2 01/17/2024 Active Start: 12-20-2022 End: 09-04-2024 take 1 tablet by mouth every twenty-four hours Metoprolol Succinate 50 mg tablet extended release 24 hr Discontinued MG PO September 04, 2024 1:00am September 04, 2024 12:29pm ondansetron 4 mg disintegrating oral tablet (20 sources) Serotonin-3 Receptor Antagonist Start: 06-05-2024 End: 11-23-2024 take 1 tablet by mouth every eight hours as needed for nausea and vomiting Ondansetron 4 mg tablet,disintegrating Discontinued 4 MG PO Every 8 hours as needed for nausea and vomiting June 05, 2024 12:00am November 23, 2024 8:46pm Start: 05-08-2024 End: 05-15-2024 take 1 tablet by mouth every eight hours for nausea ondansetron ODT (Zofran-ODT) 4 MG disintegrating tablet Indications: Nausea and vomiting, unspecified vomiting type Take 1 tablet (4 mg) by mouth every 8 (eight) hours if needed for nausea or vomiting for up to 7 days 21 tablet 05/08/2024 05/15/2024 Active phenazopyridine hydrochloride 200 mg delayed release oral tablet (3 sources) Start: 01-04-2024 End: 04-16-2024 take 1 tablet by mouth three times daily phenazopyridine (Pyridium) 200 MG tablet TAKE 1 TABLET BY MOUTH THREE TIMES DAILY FOR 2 DAYS 01/04/2024 04/16/2024 Discontinued (Therapy completed) sodium bicarbonate 650 mg oral tablet (5 sources) Start: 09-08-2024 End: 11-23-2024 take 1 [...] Visual impairment; Translations: [Unspecified visual loss] Onset: 10-11-1910-11-2023 Chronic Cancer of cervix (20 sources) Malignant tumor of cervix; Translations: [Malignant neoplasm of cervix uteri, unspecified] Onset: 10-11-1904-16-2024 Chronic Cardiac dysrhythmias (20 sources) Supraventricular tachycardia; Translations: [Supraventricular tachycardia] Onset: 06-15-2010-11-2023 Chronic Chronic kidney disease (20 sources) Chronic kidney disease stage 3; Translations: [Chronic kidney disease, stage 3 unspecified] Onset: 11-16-19 Resolved : 09-11-1909-08-2022 Chronic Chronic kidney disease (5 sources) Chronic [...] Heart failure; Translations: [Heart failure, unspecified] Onset: 08-09-2009-08-2022 Chronic Coronary atherosclerosis and other heart disease (20 sources) Old myocardial infarction; Translations: [Old myocardial infarction] Onset: 06-15-2010-11-2023 Chronic Deficiency and other anemia (1 source) Anemia in chronic kidney disease; Translations: [Anemia in chronic kidney disease] Onset: 11-24-19 Chronic Deficiency and other anemia (20 sources) Iron deficiency anemia; Translations: [Iron deficiency anemia, unspecified] Onset: 11-16-1909-08-2022 Episodic Deficiency and other anemia (1 source) Anemia, unspecified Episodic Diabetes mellitus with complications (20 sources) Disorder due to type 2 diabetes mellitus; Translations: [Type 2 diabetes mellitus with unspecified complications] Onset: 11-04-19 Resolved : 12-05-19 Chronic Diabetes mellitus without complication (20 sources) Type 2 diabetes mellitus; Translations: [Type 2 diabetes mellitus without complications] Onset: 11-04-19 22 09-08-2022 Chronic Disorders of lipid metabolism (20 sources) Hyperlipidemia; Translations: [Hyperlipidemia, unspecified] Onset: 11-13-19 Resolved : 07-22-20 Chronic Essential hypertension (20 sources) Essential hypertension; Translations: [Essential (primary) hypertension] Onset: 06-15-20 22 09-08-2022 Chronic Fluid and electrolyte disorders (20 [...] reflux uropathy, unspecified] Onset: 01-18-20 Resolved : 01-28-2001-21-2021 Episodic Headache; including migraine (20 sources) Migraine; Translations: [Migraine, unspecified, not intractable, without status migrainosus] Onset: 09-06-19 12 10-11-2023 Chronic Heart valve disorders (20 sources) Rheumatic mitral valve disease, unspecified; Translations: [Nonrheumatic mitral (valve) prolapse] Onset: 03-20-20 08 Resolved : 06-24-20 24 06-06-2023 Chronic Hypertension [...] protein-calorie malnutrition] Onset: 11-13-19 10 01-21-2021 Chronic Nutritional deficiencies (20 sources) Deficiency of other specified B group vitamins; Translations: [Cobalamin deficiency] Onset: 06-11-20 Episodic Open wounds of extremities (20 sources) [...] 23 10-11-2023 Chronic Other aftercare (5 sources) 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; Translations: [SNF CURRENT USE OF INSULIN] Onset: 08-09-20 Episodic [...] bladder, unspecified; Translations: [Neurogenic bladder NOS] Onset: 07-25-20 22 09-04-2024 Chronic Other diseases of bladder and [...] diseases of bladder and urethra (5 sources) Overactive bladder; Translations: [Overactive bladder] 11-23-2024 [...] kidney; Translations: [Cyst of kidney, acquired] Onset: 01-11-20 17 09-13-2022 Episodic Other diseases of kidney and ureters (12 sources) Cyst of kidney, acquired; Translations: [Cystic kidney disease, unspecified] Onset: 09-15-19 Episodic Other diseases of kidney and ureters (1 source) Acquired renal cystic disease; Translations: [Cyst of kidney, acquired] 07-05-2023 Episodic Other diseases of kidney and ureters (3 sources) Hydronephrosis; Translations: [Other hydronephrosis] 01-12-2024 Episodic Other diseases of kidney and ureters (14 sources) Hydroureteronephrosis ; Translations: [Unspecified hydronephrosis] Onset: 12-05-1911-23-2024 Episodic Other diseases of kidney and ureters (3 sources) Unspecified hydronephrosis; Translations: [Hydronephrosis] Onset: 11-24-19 25 11-23-2024 Episodic Other endocrine disorders (20 sources) Hyperparathyroidism; Translations: [Hyperparathyroidism, unspecified] Onset: 03-13-20 24 06-03-2024 Chronic Other endocrine disorders (6 sources) Hyperparathyroidism, [...] Chronic Other nutritional; endocrine; and metabolic disorders (19 sources) Hypomagnesemia; Translations: [Hypomagnesemia] Onset: 12-05-19 25 [...] specified abnormal findings of blood chemistry] Onset: 07-25-20 Episodic Other upper respiratory infections (20 sources) Chronic sinusitis; Translations: [Chronic sinusitis, unspecified] Onset: 12-01-19 Resolved : 07-22-20 24 10-11-2023 Chronic Peripheral and visceral atherosclerosis (20 sources) Atherosclerosis of aorta; Translations: [Atherosclerosis of aorta] Onset: 03-13-20 24 03-13-2024 Chronic Poisoning by other medications and drugs (8 sources) Poisoning by vitamin D; Translations: [Poisoning [...] sources) Memory impairment; Translations: [Other amnesia] Onset: 12-05-1912-04-2024 Episodic Rheumatoid arthritis and related disease (20 sources) Rheumatoid arthritis, unspecified; Translations: [Rheumatoid arthritis] Onset: 06-15-2003-13-2024 Chronic Skin and subcutaneous tissue infections (20 sources) Cellulitis of left lower limb; Translations: [Cellulitis of left toe] Onset: 07-25-2011-24-2024 Episodic Superficial injury; contusion (6 sources) Foreign body of foot; Translations: [Superficial foreign body, right foot, initial encounter] Onset: 11-24-1911-24-2024 Episodic Unclassified (12 sources) Finding of sensation of bladder 09-13-2022 Unclassified (1 source) CHRN KIDNEY DISEASE STG 3 UNSP; Translations: [CHRN KIDNEY DISEASE STG 3 UNSP] Onset: 01-01-20 23 Unclassified (1 source) CONTACT W/AND (SUSP) EXPOS COVID-19; Translations: [CONTACT W/AND (SUSP) EXPOS COVID-19] Onset: 07-25-20 22 Unclassified (2 sources) A [facility] screening has identified you as FRAIL or [...] Four Ways to Beat the Frailty Risk [email or web address] ilty-risk 11-26-2024 Unclassified (2 sources) Please follow-up with [facility] for neurogenic bladder and recurrent urine retention Unclassified (4 sources) Hospital follow up appointment. Please call and reschedule if needed. Unclassified (1 source) Follow up appointment at [place] location: [address] [place] [address] Hospital follow up appointment. Please call and reschedule if needed. Unclassified (1 source) Follow up appointment at [place] location: Unclassified (1 source) Acidosis, unspecified; Translations: [Acidosis, unspecified] Onset: 09-05-19 25 Unclassified (1 source) Reflex sympathetic dystrophy of right upper extremity [G90.511] Onset: 02-29-20 25 Unclassified (1 source) Extremity Pain Onset: 10-09-19 25 Unclassified (1 source) Arm Injury Onset: 07-03-20 24 Viral infection (20 sources) Herpetic vulvovaginitis; Translations: [...] of unspecified kidney] Onset: 06-22-2023 06-22-2023 Episodic Other aftercare (20 sources) Long-term current use of insulin; Translations: [care home (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] Onset: 08-27-2024 08-27-2024 Episodic Other aftercare (1 source) Other 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 (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; Translations: [OTH SNF CURRENT DRUG THERAPY] Onset: 08-09-2022 Episodic Other aftercare (2 sources) 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 (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 of opiate analgesic; Translations: [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 (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 of opiate analgesic] Onset: 03-15-2022 Episodic Other aftercare (16 sources) Patient encounter status; Translations: [care home (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 of opiate [...] OR LESS ADULT] Onset: 07-25-2022 Episodic Other skin disorders (20 [...] Test Name Value Interpretation Reference Range Facility CONTROLLED SUBSTANCE MONITOR Matt DELAROSA 03-12-2025 CONTROL SUBSTANCE PANEL, URINE SEE COMMENTS Abnormal [facility] Comment on above: Result Comment: Test Result Flag Unit RefValue ------ Controlled Substance Monitoring, U List Patient's Current HYDROCODONE Medications ADDITIONAL INFORMATION Accuracy and completeness of declared medications on reports solely dependent on information submitted by client. Creatinine, U 58.1 mg/dL Specific [place] 1.012 pH 5.6 Oxidants Negative Cutoff: 200 [...] Not Detected ng/mL Cutoff: 25 Tylenol 3 Nenodec-6-imor- Not Detected ng/mL Cutoff: 100 glucuronide Metabolite of codeine Morphine Not Detected ng/mL Cutoff: 25 Marium Leon, MS Contin; Also a minor metabolite (10%) of codeine and can be seen in low concentrations (<2,000 ng/mL) with poppy seed ingestion. Rrhpyakk-5-umqq- Not Detected ng/mL Cutoff: 100 glucuronide Metabolite of morphine 6-monoacetylmorphine Not Detected ng/mL Cutoff: 25 Metabolite of heroin Hydrocodone Present A ng/mL Cutoff: 25 Lortab, [place], Vicodin; Also a very minor metabolite of codeine and impurity (<1%) of oxycodone. Norhydrocodone Present A ng/mL Cutoff: 25 Metabolite of hydrocodone Dihydrocodeine Present A ng/mL Cutoff: 25 Metabolite of hydrocodone Hydromorphone Not Detected ng/mL Cutoff: 25 Dilaudid, Exalgo; Also a metabolite of hydrocodone and a minor (<5%) metabolite of morphine. Ihwraeokaqijb-0-vliv- Not Detected ng/mL Cutoff: 100 glucuronide Metabolite of hydromorphone Oxycodone Not Detected ng/mL Cutoff: 25 Endocet, Percocet, Oxycontin Noroxycodone Not Detected ng/mL Cutoff: 25 Metabolite of oxycodone Oxymorphone Not Detected ng/mL Cutoff: 25 Numorphan, Opana; Also a metabolite of oxycodone. Kojdzrtymof-0-vvke- Not Detected ng/mL Cutoff: 100 glucuronide Metabolite [...] Naloxone Not Detected ng/mL Cutoff: 25 Narcan Caovupis-9-oswh- Not Detected ng/mL Cutoff: 100 glucuronide Metabolite [...] its performance characteristics determined by [facility] in a manner consistent with [...] Detected ng/mL Cutoff: 10 Valium Nordiazepam Not De (more content not included)... Performed By: #### C SMPUS #### [facility] (SDL) [address] [place] [address] VIR GABAPENTIN, URINEon 03-12-20 25 GABAPENTIN,URINE Negative Normal [facility] Comment on above: Result Comment: Test Performed by: [employer], [employer]. [address] [place] [id number] Performed By: #### F KASSIDY #### [facility] (SDL) [address] [place] [address] VIR LOONEY GENERIC ORDERon 025 TEST RESULT SEE COMMENTS Normal [facility] Comment on above: Result Comment: Test Result Flag Unit RefValue ------ Pregabalin, urine SEE COMMENTS Test Result Flag Units Reference Range Pregabalin, UR Pregabalin 26.2 ug/mL This test was developed and its performance characteristics determined by [employer]. It has not been cleared or approved by the Food and Drug Administration. Test Performed by: [employer]. [address] [place] [address] Performed By: #### M GO #### [facility] (SD) [address] [place] [address] VIR Pregabalin, Urineon 03-12-20 25 Laboratory comment Os[place] (Report) Sent to [facility]. [facility] UNLISTED LAB TESTon 03-12-20 LOOK Sent to Reference [facility]. [facility] Comment on above: Performed By: #### L OOK #### [facility] ([facility]) [address] [place] [address] VIR BEDSIDE GLUCOSEon 02-28-2025 Glucose [Mass/Vol] 103 mg/dL High 65-99 [facility] Comment on above: Performed By: #### B EDG #### [facility] ([facility]) [address] [place] [address] VIR CONTROLLED SUBSTANCE MONITOR ING, Uon 02-28-2025 CONTROLLED SUBSTANCE MONITORING, U CSMPUS CONTROLLED SUBSTANCE MONITORING, U Cancelled [facility] Comment on above: Order Comment: RECOL LECT - 1 FULL URINE CUP, SPECIMEN NEEDS TO BE LABELLED WITH TWO PATIENT IDENTIFIERS GABAPENTIN, URINEon 02-29-20 25 GABAPENTIN, URINE FGABA GABAPENTIN, UR INE Cancelled [facility] Comment on above: Order Comment: RECOL LECT - 1 FULL URINE CUP, SPECIMEN NEEDS TO BE LABELLED WITH TWO PATIENT IDENTIFIERS UNLISTED LAB TESTon 02-29-20 UNLISTED LAB TEST LOOK UNLISTED LAB TE ST Cancelled Normal [facility] Comment on above: Order Comment: RECOL LECT - 1 FULL URINE CUP, SPECIMEN NEEDS TO BE LABELLED WITH TWO PATIENT IDENTIFIERS Urine Cultureon 02-11-2025 Bacteria identified Cx Nom (U) ORGANISM: Escherichia coli (O:ESCCOL) [place] Count >100,000 Aerobic LOCO Charge (NMIC56) SUSCEPTIBILITY ORGANISM: O:ESCCOL ANTIBIOTIC INTERPRETATION LOCO Amikacin S <16 Amoxacillin/K Clavulanate S <8 Ampicillin S <8 Ampicillin/Sulbactam S <4 Aztreonam S <4 Cefazolin S <2 Cefepime S <2 Ceftazidime S <1 Ceftazidime/Avibactam S <4 Ceftolozane/Tazobactam S <2 Ceftriaxone S <1 Cefuroxime S 8 Ciprofloxacin R >2 Ertapenem S <0.5 Gentamicin S <2 Levofloxacin R >4 Meropenem S <1 Meropenem/Vaborbactam S <2 Nitrofurantoin S <32 Piperacillin/Tazobactam S <8 Tetracycline S <4 Tigecycline S <2 Tobramycin S <2 Trimethoprim/Sulfamethoxa zole R >2 S = SUSCEPTIBLE I = INTERMEDIATE R [...] RESISTANT TO ALL B-LACTAM DRUGS. PERFORMED BY: [facility] [address] [address] PATHOLOGIST LOCAL INTERMODAL TRUCK DRIVER ARABELLA ALEXANDER M.D. Normal [facility] Comment on above: Performed By: #### G LULS #### Point of Care testing , Urine cultureOrdered By: Tha Garcia on 02-11-2025 Bacteria identified Cx Nom (U) Escherichia coli Abnormal [facility] ALL CBC WITH AUTO DIFFon BASOPHILS ABSOLUTE AUTO 0.1 [facility] Basophils/100 WBC (Bld) 0.6 % 0.2 - 2.0 % [facility] Eosinophils/100 WBC (Bld) 0.8 % Low 0.9 - 7.0 % [facility] Erythrocyte distribution width (RBC) [Ratio] 13.6 % 11.0 - 15.0 % [facility] Hematocrit (Bld) [Volume fraction] 30.9 % Low 36.0 - 48.0 % [facility] Hemoglobin (Bld) [Mass/Vol] 9.8 g/dL Low 12.0 - 16.0 g/dL [facility] IMMATURE GRANULOCYTES ABS AUTO 0.15 High [facility] Immature granulocytes/100 WBC (Bld) 1.7 % High 0.0 - 0.5 % [facility] Interpretation and review of laboratory results Abnormal [facility] LYMPHOCYTES ABSOLUTE AUTO 1.6 [facility] Lymphocytes/100 WBC (Bld) 17.5 % Low 20.5 - 60.0 % [facility] MCH (RBC) [Entitic mass] 25.3 pg Low 26.7 - 34.0 pg [facility] MCHC (RBC) [Mass/Vol] 31.7 g/dL 29.9 - 35.2 g/dL [facility] MCV (RBC) [Entitic vol] 79.8 fL Low 81.0 - 99.0 fL [facility] MONOCYTES ABSOLUTE AUTO 0.5 [facility] Monocytes/100 WBC (Bld) 5.9 % 1.7 - 12.0 % [facility] NEUTROPHILS ABSOLUTE AUTO 6.7 High [facility] Neutrophils/100 WBC (Bld) 73.5 % 43.0 - 75.0 % [facility] Platelet mean volume (Bld) [Entitic vol] 11.1 fL 9.5 - 13.5 fL [facility] TBH EO # 0.1 [facility]H PLT 295 [facility] TBH RBC 3.87 Low [facility] TB WBC 9.1 [facility] Urinalysis macro (dipstick) panel (U)on 01-27-2025 Bilirubin, UA Negative Negative - 4(70) +++ mg/dL [facility] Blood, UA Positive Negative - 50 Kenneth/mcL [facility] Comment on above: moderate Clarity, UA Cloudy [facility] Color, UA Light Yellow [facility] Glucose, UA Positive Negative - 2000(110) ++++ mg/dL [facility] Comment on above: 250 Interpretation and review of laboratory results Abnormal [facility] Ketones, UA Negative Negative - 160(16) ++++ mg/dL [facility] Leukocytes, UA Trace Negative - 500+++ Liam/mcL [facility] Nitrite, UA Negative Negative - Positive [facility] pH, UA 5.5 5 - 9 [facility] Protein, UA Positive Negative - 1999(20) ++++ mg/dL [facility] Comment on above: >=300 Spec Grav, UA 1.025 1 - 1.03 [facility] Urobilinogen, UA 0.2 0.2 - 12 mg/dL [facility] Albumin [Mass/volume] in Ser um or Plasma by Bromocresol green (BCG) dye binding methoOrdered By: Tyler Valencia on 11-26-2024 Albumin BCG dye [Mass/Vol] Albumin [Mass/volume] in Serum or Plasma by Bromocresol green (BCG) dye binding metho Low 3.5-5.7 [facility] Albumin BCG dye [Mass/Vol] 2.9 g/dL Low 3.5-5.7 [facility] Basophils Auto (Bld) [#/Vol] Ordered By: Demian Dorantes on 11-26-2024 Basophils (Bld) [#/Vol] Automated basophil count 0.0-0.2 [facility] Basophils [#/volume] in Bloo d by Automated countOrdered By: Demian Dorantes on 11-26-2024 Basophils (Bld) [#/Vol] 0.0 10*3/uL Normal 0.0-0.2 [facility] Comment on above: Result Comment: PERF ORMED BY: [facility] [address] [place] [address] PATHOLOGIST LOCAL INTERMODAL TRUCK DRIVER NICK MOHR M.D. Performed By: #### C UU, MARALONUAPLUS #### [facility] [address] [place] [address] [place] Basophils/100 WBC Auto (Bld) Ordered By: Demian Dorantes on 11-26-2024 Basophils/100 WBC (Bld) Automated basophil % . [facility] Basophils/100 leukocytes in Blood by Automated countOrdered By: Demian Dorantes on 11-26-2024 Basophils/100 WBC (Bld) 0.6 % Normal . [facility] Comment on above: Performed By: #### C UU, MARALONUAPLUS #### [facility] [address] Calcium [Mass/volume] in Ser um or PlasmaOrdered By: Tyler Valencia on 11-26-2024 Calcium [Mass/Vol] Calcium [Mass/volume ] in Serum or Plasma Low 8.6-10.3 [facility] Calcium [Mass/Vol] 8.2 mg/dL Low 8.6-10.3 [facility] Comment on above: Performed By: #### R ENAL #### [facility] [address] Capillary blood glucose zabrina urement by glucometer (mass/volume)Ordered By: Demian Dorantes on 11-26-2024 Glucose [Mass/Vol] 129 mg/dL Normal [facility] Comment on above: Random Glucose Refer ence Range is dependent on time and content of last meal. Glucose of more than 200 mg/dL in a nonstressed, ambulatory subject supports the diagnosis of Diabetes Mellitus. Result Comment: [facility] Glucose Reference Range is dependent on time and content of last meal. Glucose of more than 200 mg/dL in a nonstressed, ambulatory subject supports the diagnosis of Diabetes Mellitus. PERFORMED BY: [facility] [address] [place] [address] PATHOLOGIST LOCAL INTERMODAL TRUCK DRIVER NICK MOHR M.D. Performed By: #### G LULS #### Point of Care testing , Carbon dioxide, total [Moles /volume] in Serum or PlasmaOrdered By: Tyler Valencia on 11-26-2024 CO2 [Moles/Vol] Carbon dioxide, tota l [Moles/volume] in Serum or Plasma 21.0-31.0 [facility] CO2 [Moles/Vol] 28.1 mmol/L Normal 21.0-31.0 [facility] Comment on above: Performed By: #### R ENAL #### [address] Chloride [Moles/volume] in S ryan or PlasmaOrdered By: Tyler Valencia on 11-26-2024 Chloride [Moles/Vol] Chloride [Moles/vol ume] in Serum or Plasma High 98-107 [facility] Chloride [Moles/Vol] 108 mmol/L High 98-107 [facility] Comment on above: Performed By: #### R ENAL #### [address] Complete Blood Count Auto Di ffon 11-26-2024 Mean Corpuscular HGB Conc 33.1 g/dL Normal 32.0-35.0 [facility] Comment on above: Performed By: #### C UU ADDONUAPLUS #### [address] NRBC% 0.2 /100{WBC} Normal 0-0.5 [facility] Comment on above: Performed By: #### C UU, ADDONUAPLUS #### [address] Creatinine [Mass/volume] in Serum or PlasmaOrdered By: Tyler Valencia on 11-26-2024 Creatinine [Mass/Vol] Creatinine [Mass/v olume] in Serum or Plasma High 0.60-1.20 [facility] Creatinine [Mass/Vol] 2.19 mg/dL High 0.60-1.20 [facility] Comment on above: Performed By: #### R ENAL #### [place] [address] [place] Eosinophils Auto (Bld) [#/Vo l]Ordered By: Demian Dorantes on 11-26-2024 Eosinophils (Bld) [#/Vol] Automated eosinophil count 0.0-0.45 [facility] Eosinophils [#/volume] in Bl ood by Automated countOrdered By: Demian Dorantes on 11-26-2024 Eosinophils (Bld) [#/Vol] 0.2 10*3/uL Normal 0.0-0.45 [facility] Comment on above: Performed By: #### C UU, ADDONUAPLUS #### [facility] [address] [place] [address] Eosinophils/100 WBC Auto (Bl d)Ordered By: Demian Dorantes on 11-26-2024 Eosinophils/100 WBC (Bld) Automated eosinophil % . [facility] Eosinophils/100 leukocytes i n Blood by Automated countOrdered By: Demian Dorantes on 11-26-2024 Eosinophils/100 WBC (Bld) 3.5 % Normal . [facility] Comment on above: Performed By: #### C UU, ADDONUAPLUS #### [facility] [address] [place] [address] Erythrocyte distribution wid th Auto (RBC) [Ratio]Ordered By: Demian Dorantes on 11-26-2024 Erythrocyte distribution width (RBC) [Ratio] Erythrocyte distribution width [Ratio] by Automated count 11.9-15.3 [facility] Erythrocyte distribution wid th [Ratio] by Automated countOrdered By: Demian Dorantes on 11-26-2024 Erythrocyte distribution width (RBC) [Ratio] 13.7 % Normal 11.9-15.3 [facility] Comment on above: Performed By: #### C UU, ADDONUAPLUS #### [facility] [address] [place] [address] [place] Erythrocytes [#/volume] in B lood by Automated countOrdered By: Demian Dorantes on 11-26-2024 RBC (Bld) [#/Vol] 3.70 10*6/uL Normal 3.60-5.00 [facility] Comment on above: Performed By: #### C UU, ADDONUAPLUS #### [facility] [address] [id number] [place] Glucose Glucometer (BldC) [M ass/Vol]Ordered By: Demian Dorantes on 11-26-2024 Glucose [Mass/Vol] Capillary blood gluc ose measurement by glucometer (mass/volume) [facility] Comment on above: Random Glucose Refer ence Range is dependent on time and content of last meal. Glucose of more than 200 mg/dL in a nonstressed, ambulatory subject supports the diagnosis of Diabetes Mellitus. Glucose Poct Glucometerson 0 11-26-2024 Commemt1 Glu2: Cleaned Meter Normal [facility] Comment on above: Result Comment: PERF ORMED BY: [place] [address] PATHOLOGIST LOCAL INTERMODAL TRUCK DRIVER NICK MOHR M.D. Performed By: #### C UU, ADDONUAPLUS #### [address] Glucose [Mass/Vol] 134 mg/dL Normal [facility] Comment on above: Result Comment: [place] om Glucose Reference Range is dependent on time and content of last meal. Glucose of more than 200 mg/dL in a nonstressed, ambulatory subject supports the diagnosis of Diabetes Mellitus. Performed By: #### C UU, ADDONUAPLUS #### [address] Glucose [Mass/volume] in Ser um or PlasmaOrdered By: Tyler Valencia on 11-26-2024 Glucose [Mass/Vol] Glucose [Mass/volume ] in Serum or Plasma High 70-100 [facility] Comment on above: ADA recommended refe rence rangeRandom Glucose Reference Range is dependent on time and content of last meal. Glucose of more than 200 mg/dL in a nonstressed, ambulatory subject supports the diagnosis of Diabetes Mellitus. Glucose [Mass/Vol] 135 mg/dL High 70-100 [facility] Comment on above: ADA recommended refe rence rangeRandom Glucose Reference Range is dependent on time and content of last meal. Glucose of more than 200 mg/dL in a nonstressed, ambulatory subject supports the diagnosis of Diabetes Mellitus. Result Comment: [place] Glucose Reference Range is dependent on time and content of last meal. Glucose of more than 200 mg/dL in a nonstressed, ambulatory subject supports the diagnosis of Diabetes Mellitus. ADA recommended reference range Performed By: #### R ENAL #### [address] Hematocrit Auto (Bld) [Volum e fraction]Ordered By: Demian Dorantes on 11-26-2024 Hematocrit (Bld) [Volume fraction] Hematocrit [Volume Fraction] of Blood by Automated count Low 34.0-46.4 [facility] Hematocrit [Volume Fraction] of Blood by Automated countOrdered By: Demian Dorantes on 11-26-2024 Hematocrit (Bld) [Volume fraction] 29.3 % Low 34.0-46.4 [facility] Comment on above: Performed By: #### C UU, MARALONUAPLUS #### [address] Hemoglobin [Mass/volume] in BloodOrdered By: Demian Dorantes on 11-26-2024 Hemoglobin (Bld) [Mass/Vol] Hemoglobin [Mass/volume] in Blood Low 11.8-15.4 [facility] Hemoglobin (Bld) [Mass/Vol] 9.7 g/dL Low 11.8-15.4 [facility] Comment on above: Performed By: #### C URenate, MARALONUAPLUS #### [facility] [address] [place] [address] Leukocytes [#/volume] correc madhavi for nucleated erythrocytes in Blood by Automated counOrdered By: Demian Dorantes on 11-26-2024 WBC corrected for nucl RBC Auto (Bld) [#/Vol] Leukocytes [#/volume] corrected for nucleated erythrocytes in Blood by Automated coun 3.8-11.6 [facility] WBC corrected for nucl RBC Auto (Bld) [#/Vol] 5.8 10*3/uL 3.8-11.6 [facility] Leukocytes [#/volume] in Blo od by Automated countOrdered By: Demian Dorantes on 11-26-2024 WBC (Bld) [#/Vol] 5.8 10*3/uL Normal 3.8-11.6 [facility] Comment on above: Performed By: #### C URenate, ADDONUAPLUS #### [facility] [address] [place] [address] Lymphocytes Auto (Bld) [#/Vo l]Ordered By: Demian Dorantes on 11-26-2024 Lymphocytes (Bld) [#/Vol] Lymphocytes [#/volume] in Blood by Automated count 1.00-4.8 [facility] Lymphocytes [#/volume] in Bl ood by Automated countOrdered By: Demian Dorantes on 11-26-2024 Lymphocytes (Bld) [#/Vol] 2.3 10*3/uL Normal 1.00-4.8 [facility] Comment on above: Performed By: #### C UU, ADDONUAPLUS #### [facility] [address] [place] [address] Lymphocytes/100 WBC Auto (Bl d)Ordered By: Demian Dorantes on 11-26-2024 Lymphocytes/100 WBC (Bld) Lymphocytes/100 leukocytes in Blood by Automated count . [facility] Lymphocytes/100 leukocytes i n Blood by Automated countOrdered By: Deiman Dorantes on 11-26-2024 Lymphocytes/100 WBC (Bld) 40.1 % Normal . [facility] Comment on above: Performed By: #### C UU, ADDONUAPLUS #### [facility] [address] [place] [address] MCH Auto (RBC) [Entitic mass ]Ordered By: Demian Dorantes on 11-26-2024 MCH (RBC) [Entitic mass] MCH [Entitic mass] by Automated count 24.7-34.3 [facility] MCH [Entitic mass] by Automa madhavi countOrdered By: Demian Dorantse on 11-26-2024 MCH (RBC) [Entitic mass] 26.2 pg Normal 24.7-34.3 [facility] Comment on above: Performed By: #### C URenate, ADDONUAPLUS #### [facility] [address] MCHC Auto (RBC) [Mass/Vol]Or dered By: Demian Dorantes on 11-26-2024 MCHC (RBC) [Mass/Vol] MCHC [Mass/volume] by Automated count 32.0-35.0 [facility] MCHC (RBC) [Mass/Vol] 33.1 g/dL 32.0-35.0 [facility] MCV Auto (RBC) [Entitic vol] Ordered By: Demian Dorantes on 11-26-2024 MCV (RBC) [Entitic vol] MCV [Entitic volume] by Automated count Low 80-100 [facility] MCV [Entitic volume] by Auto mated countOrdered By: Demian Dorantes on 11-26-2024 MCV (RBC) [Entitic vol] 79.0 fL Low 80-100 [facility] Comment on above: Performed By: #### C URenate, ADDONUAPLUS #### [facility] [address] [place] [address] Monocytes Auto (Bld) [#/Vol] Ordered By: Demian Dorantes on 11-26-2024 Monocytes (Bld) [#/Vol] Automated blood monocyte count 0.0-0.8 [facility] Monocytes [#/volume] in Bloo d by Automated countOrdered By: Demian Dorantes on 11-26-2024 Monocytes (Bld) [#/Vol] 0.4 10*3/uL Normal 0.0-0.8 [facility] Comment on above: Performed By: #### C UU, ADDONUAPLUS #### [facility] [address] [place] [address] Monocytes/100 WBC Auto (Bld) Ordered By: Demian Dorantes on 11-26-2024 Monocytes/100 WBC (Bld) Automated monocyte % . [facility] Monocytes/100 leukocytes in Blood by Automated countOrdered By: Demian Dorantes on 04-08-2025 Monocytes/100 WBC (Bld) 6.8 % Normal . [facility] Comment on above: Performed By: #### C UU, ADDONUAPLUS #### [facility] [address] [place] [address] [place] Neutrophils Auto (Bld) [#/Vo l]Ordered By: Demian Dorantes on 11-26-2024 Neutrophils (Bld) [#/Vol] Neutrophils [#/volume] in Blood by Automated count 1.8-7.7 [facility] Neutrophils [#/volume] in Bl ood by Automated countOrdered By: Demian Dorantes on 11-26-2024 Neutrophils (Bld) [#/Vol] 2.8 10*3/uL Normal 1.8-7.7 [facility] Comment on above: Performed By: #### C UU, ADDONUAPLUS #### [facility] [address] [place] [address] Neutrophils/100 WBC Auto (Bl d)Ordered By: Demian Dorantes on 11-26-2024 Neutrophils/100 WBC (Bld) Automated neutrophil % . [facility] Neutrophils/100 leukocytes i n Blood by Automated countOrdered By: Demian Dorantes on 11-26-2024 Neutrophils/100 WBC (Bld) 49.0 % Normal . [facility] Comment on above: Performed By: #### C UU, ADDONUAPLUS #### [facility] [address] [place] [address] No Panel InformationOrdered By: Demian Dorantes on 11-26-2024 Bedside Glucose Comment Glu2: cleaned meter [facility] No Panel InformationOrdered By: Tyler Valencia on 11-26-2024 Estimated GFR (CKD-EPI) 24.254 mL/Min [facility] Creatinine Clearance (Chem 20.53 [facility] Nucleated erythrocytes [Pres ence] in Blood by Automated countOrdered By: Demian Dorantes on 11-26-2024 Nucleated RBC Auto Ql (Bld) Nucleated erythrocytes [Presence] in Blood by Automated count 0-0.5 [facility] Nucleated RBC Auto Ql (Bld) 0.2 /100{WBC} 0-0.5 [facility] Phosphate [Mass/volume] in S ryan or PlasmaOrdered By: Tyler Valencia on 11-26-2024 Phosphate [Mass/Vol] Phosphate [Mass/vol ume] in Serum or Plasma 2.5-4.5 [facility] Phosphate [Mass/Vol] 4.0 mg/dL Normal 2.5-4.5 [facility] Comment on above: Performed By: #### R ENAL #### [facility] [address] [place] [address] Platelet mean volume Auto (B ld) [Entitic vol]Ordered By: Demian Dorantes on 11-26-2024 Platelet mean volume (Bld) [Entitic vol] Platelet mean volume [Entitic volume] in Blood by Automated count 6.3-10.7 [facility] Platelet mean volume [Entiti c volume] in Blood by Automated countOrdered By: Demian Dorantes on 11-26-2024 Platelet mean volume (Bld) [Entitic vol] 9.3 fL Normal 6.3-10.7 [facility] Comment on above: Performed By: #### C UMARAL DewittONUAPLUS #### [facility] [address] [place] [address] Platelets Auto (Bld) [#/Vol] Ordered By: Demian Dorantes on 11-26-2024 Platelets (Bld) [#/Vol] Platelets [#/volume] in Blood by Automated count 150-450 [facility] Platelets [#/volume] in Bloo d by Automated countOrdered By: Demian Pricekpsanta on 11-26-2024 Platelets (Bld) [#/Vol] 232 10*3/uL Normal 150-450 [facility] Comment on above: Performed By: #### C URenate ADDONUAPLUS #### [facility] [address] [place] [address] [place] Potassium [Moles/volume] in Serum or PlasmaOrdered By: Tyler Valencia on 11-26-2024 Potassium [Moles/Vol] Potassium [Moles/v olume] in Serum or Plasma 3.5-5.1 [facility] Potassium [Moles/Vol] 4.5 mmol/L Normal 3.5-5.1 [facility] Comment on above: Performed By: #### R ENAL #### [address] RBC Auto (Bld) [#/Vol]Ordere d By: Demian Dorantes on 11-26-2024 RBC (Bld) [#/Vol] Erythrocytes [#/volu me] in Blood by Automated count 3.60-5.00 [facility] Renal Function Panelon 11-26 Albumin [Mass/Vol] 2.9 g/dL Low 3.5-5.7 [facility] Comment on above: Performed By: #### R ENAL #### [address] Creatinine Clr Calc Pharmacy 20.53 Normal [facility] Comment on above: Result Comment: PERF ORMED BY: [place] [address] PATHOLOGIST LOCAL INTERMODAL TRUCK DRIVER NICK MOHR M.D. Performed By: #### R ENAL #### [address] Estimated GFR 24.254 mL/Min Normal [facility] Comment on above: Performed By: #### R ENAL #### [address] Serum or plasma anion gap de terminationOrdered By: Tyler Valencia on 11-26-2024 Anion gap [Moles/Vol] Serum or plasma an ion gap determination 6.0-15.0 [facility] Anion gap [Moles/Vol] 9.4 mmol/L Normal 6.0-15.0 [facility] Comment on above: Performed By: #### R ENAL #### [address] Sodium [Moles/volume] in Ser um or PlasmaOrdered By: Tyler Valencia on 11-26-2024 Sodium [Moles/Vol] Sodium [Moles/volume ] in Serum or Plasma 136-145 [facility] Sodium [Moles/Vol] 141 mmol/L Normal 136-145 [facility] Comment on above: Performed By: #### R ENAL #### [facility] [address] [place] [address] Urea nitrogen [Mass/volume] in Serum or PlasmaOrdered By: Tyler Valencia on 11-26-2024 Urea nitrogen [Mass/Vol] Urea nitrogen [Mass/volume] in Serum or Plasma [facility] 7-25 [facility] Urea nitrogen [Mass/Vol] 39 mg/dL [facility] -25 [facility] Comment on above: Performed By: #### R ENAL #### [facility] [address] [place] [address] WBC Auto (Bld) [#/Vol]Ordere d By: Demian Dorantes on 11-26-2024 WBC (Bld) [#/Vol] Leukocytes [#/volume ] in Blood by Automated count 3.8-11.6 [facility] ECH echo transthoracicon [facility] echo transthoracic [facility] Main [place] [address] [place] [address] Echocardiogram Signed Patient: Aislinn Wheeler MR#: [id number] 01 : 1960 Acct:[id number] Age/Sex: 64 / F ADM Date: 11/23/24 Loc: Room: [address] [place] [address] Type: ADM IN Attending Dr: Demian Dorantes MD Ordering Provider: Diane Smith MD Date of Service: 11/23/2401/12/1850 [facility]/ECH echo transthoracic: assess for CHF Copies to: [...] m2 122.0 grams 2.7 l/min/m2 __ HEMALATHA (HM): LAVmax (HM): LAVmin (HM): 13.0 mlPat Height (HM): 37.0 ml/m2 58.0 ml 152.0 cm __ Pat Weight (HM): 60.2 kg QLAB Heart Model EDV (HM)_phl: 95.0 ml EF (HM)_phl: 58.0 % ED Current (HM)_phl: 60.0 % ESV (HM)_phl: 40.0 ml HR (HM)_phl: 77.0 BPMES Current (HM)_phl: 30.0 % LV Length ED (HM)_phl: 75.0 mmSV (HM)_phl: 55.0 ml ED Default (HM)_phl: 60.0 % LV Length ES (HM)_phl: 64.0 mm ES Default ()_phl: 30.0 % ___ Transcribed By: DELTA Performed At: 11/25/24 1311 Signed By: Irena Haro MD 11/25/24 1419 Normal [facility] Glucose Poct Glucometerson 0 11-25-2024 Commemt1 Glu2: Cleaned Meter Normal [facility] Comment on above: Result Comment: PERF ORMED BY: [facility] [address] [place] [address] PATHOLOGIST LOCAL INTERMODAL TRUCK DRIVER NICK MOHR M.D. Performed By: #### G LULS #### Point of Care testing , Glucose [Mass/Vol] 145 mg/dL Normal [facility] Comment on above: Result Comment: [place] Glucose Reference Range is dependent on time and content of last meal. Glucose of more than 200 mg/dL in a nonstressed, ambulatory subject supports the diagnosis of Diabetes Mellitus. Performed By: #### G LULS #### Point of Care testing , Glucose [Mass/Vol] 132 mg/dL Normal [facility] Comment on above: Result Comment: [place] om Glucose Reference Range is dependent on time and content of last meal. Glucose of more than 200 mg/dL in a nonstressed, ambulatory subject supports the diagnosis of Diabetes Mellitus. PERFORMED BY: [place] [phone] PATHOLOGIST LOCAL INTERMODAL TRUCK DRIVER NICK MOHR M.D. Performed By: #### C ZAHIDA COLÓNPLUS #### [address] Glucose [Mass/Vol] 99 mg/dL Normal [facility] Comment on above: Result Comment: [place] om Glucose Reference Range is dependent on time and content of last meal. Glucose of more than 200 mg/dL in a nonstressed, ambulatory subject supports the diagnosis of Diabetes Mellitus. PERFORMED BY: [place] [phone] PATHOLOGIST LOCAL INTERMODAL TRUCK DRIVER NICK MOHR M.D. Performed By: #### C ZAHIDA COLÓNPLUS #### [address] [place] perf SPECT rest stron 11-25-2024 [place] perf SPECT rest [facility] Main [place] [address] [place] [address] Nuclear Medicine Report Signed Patient: Aislinn Wheeler MR#: [id number] 01 : 1960 Acct:[id number] Age/Sex: 64 / F ADM Date: 11/23/24 Loc: Room: [address] [place] [address] Type: ADM IN Attending Dr: Demian Dorantes [...] Irena Haro M.D.11/25/2024 3:24 PM Dictation Location: [place] [address] Transcribed By: AMEE 11/25/24 1524 Dictated By: Irena Haro MD 11/25/24 1523 Signed By: 11/25/24 1524 Normal [facility] No Panel InformationOrdered By: Irena Haro on 11-25-2024 [facility] [place] [address] Cardiac Stress Test Signed Patient: Aislinn Wheeler MR#: [id number] : 1960 Date of Service:0 11/25/24 Age/Sex: 64 / F ADM Date: 5 Loc: Room: [address] [place] [address] Type: ADM IN Attending Dr: Demian Dorantes MD Copies to: MD Irena Olsen MD Lisa J Aichholz PHOSPHORIC ACID OPERATOR-C~ INDICATION FOR STUDY/DIAGNOSIS: Chest pain PROCEDURE: [...] under a separate cover. Transcribed By: gustabo 11/25/241443 Dictated By: Irena Haro MD 11/25/241443 Signed By: 11/25/24 144 [facility] Work Phone: Renal Function Panelon 11-25 Albumin [Mass/Vol] 3.2 g/dL Low 3.5-5.7 [facility] Comment on above: Performed By: #### C URenate ADDONUAPLUS #### [address] Anion gap [Moles/Vol] 10.2 mmol/L Normal 6.0-15.0 [facility] Comment on above: Performed By: #### C URenate ADDONUAPLUS #### [address] Calcium [Mass/Vol] 8.2 mg/dL Low 8.6-10.3 [facility] Comment on above: Performed By: #### C URenate ADDONUAPLUS #### [address] Chloride [Moles/Vol] 106 mmol/L Normal 98-107 [facility] Comment on above: Performed By: #### C UU ADDONUAPLUS #### [address] CO2 [Moles/Vol] 28.6 mmol/L Normal 21.0-31.0 [facility] Comment on above: Performed By: #### C UU ADDONUAPLUS #### [place] [address] [place] Creatinine [Mass/Vol] 2.22 mg/dL High 0.60-1.20 [facility] Comment on above: Performed By: #### C UU ADDONUAPLUS #### [place] [address] [place] Creatinine Clr Calc Pharmacy 20.22 Normal [facility] Comment on above: Result Comment: PERF ORMED BY: [place] [address] PATHOLOGIST LOCAL INTERMODAL TRUCK DRIVER NICK MOHR M.D. Performed By: #### C UU, ADDONUAPLUS #### [address] Estimated GFR 23.862 mL/Min Normal [facility] Comment on above: Performed By: #### C UU, ADDONUAPLUS #### [address] Glucose [Mass/Vol] 72 mg/dL Significant change down 70-100 [facility] Comment on above: Result Comment: [facility] Glucose Reference Range is dependent on time and content of last meal. Glucose of more than 200 mg/dL in a nonstressed, ambulatory subject supports the diagnosis of Diabetes Mellitus. ADA recommended reference range Performed By: #### C UU, ADDONUAPLUS #### [address] Phosphate [Mass/Vol] 3.1 mg/dL Normal 2.5-4.5 [facility] Comment on above: Performed By: #### C UU, ADDONUAPLUS #### [address] Potassium [Moles/Vol] 4.8 mmol/L Normal 3.5-5.1 [facility] Comment on above: Performed By: #### C UU, ADDONUAPLUS #### [place] [address] [place] Sodium [Moles/Vol] 140 mmol/L Normal 136-145 [facility] Comment on above: Performed By: #### C UU, ADDONUAPLUS #### [address] Urea nitrogen [Mass/Vol] 47 mg/dL High 7-25 [facility] Comment on above: Performed By: #### C UU, ADDONUAPLUS #### [facility] [address] [place] [address] A1C with Estimated Average Martin boyd 11-24-2024 Glucose [Mass/Vol] 223 mg/dL Normal [facility] Comment on above: Order Comment: Comme nt Add on Result Comment: PERF ORMED BY: [address] [place] [address] PATHOLOGIST LOCAL INTERMODAL TRUCK DRIVER NICK MOHR M.D. Performed By: #### G LULS #### Point of Care testing , Alanine aminotransferase [En zymatic activity/volume] in Serum or PlasmaOrdered By: Diane Smith on 11-24-2024 ALT [Catalytic activity/Vol] Alanine aminotransferase [Enzymatic activity/volume] in Serum or Plasma [facility] ALT [Catalytic activity/Vol] 14 U/L Normal [facility] Comment on above: Performed By: #### C UU, ADDONUAPLUS #### [facility] [address] [place] [address] Alkaline phosphatase [Enzyma tic activity/volume] in Serum or PlasmaOrdered By: Diane Smith on 11-24-2024 ALP [Catalytic activity/Vol] Alkaline phosphatase [Enzymatic activity/volume] in Serum or Plasma 34-104 [facility] ALP [Catalytic activity/Vol] 79 U/L Normal 34-104 [facility] Comment on above: Performed By: #### C UU, ADDONUAPLUS #### [facility] [address] [place] [address] Aspartate aminotransferase [ Enzymatic activity/volume] in Serum or PlasmaOrdered By: Diane Smith on 11-24-2024 AST [Catalytic activity/Vol] Aspartate aminotransferase [Enzymatic activity/volume] in Serum or Plasma Low 1339 [facility] AST [Catalytic activity/Vol] 12 U/L Low -39 [facility] Comment on above: Performed By: #### C UU, ADDONUAPLUS #### [facility] [address] [place] [address] Bilirubin.total [Mass/volume ] in Serum or PlasmaOrdered By: Diane Smith on 11-24-2024 Bilirubin [Mass/Vol] Bilirubin.total [Mass/volume] in Serum or Plasma Low 0.3-1.0 [facility] Bilirubin [Mass/Vol] 0.1 mg/dL Low 0.3-1.0 [facility] Comment on above: Performed By: #### C URenate ADDONUAPLUS #### [address] Blood estimated average gluc ose determination by estimation from glycated hemoglobinOrdered By: Irena Schuster on 11-24-2024 Average glucose Estimated from glycated hemoglobin (Bld) [Mass/Vol] Glucose mean value [Mass/volume] in Blood Estimated from glycated hemoglobin [facility] Average glucose Estimated from glycated hemoglobin (Bld) [Mass/Vol] 223 mg/dL [facility] [facility] Complete [facility] Count Auto Di ffon 11-24-2024 Basophils (Bld) [#/Vol] 0.1 10*3/uL Normal 0.0-0.2 [facility] Comment on above: Result Comment: PERF ORMED BY: [place] [address] PATHOLOGIST LOCAL INTERMODAL TRUCK DRIVER NICK MOHR M.D. Performed By: #### C MARAL COLÓNONUAPLUS #### [address] Basophils/100 WBC (Bld) 1.0 % Normal . [facility] Comment on above: Performed By: #### C URenate ADDONUAPLUS #### [address] Eosinophils (Bld) [#/Vol] 0.2 10*3/uL Normal 0.0-0.45 [facility] Comment on above: Performed By: #### C UMARAL DewittONUAPLUS #### [address] Eosinophils/100 WBC (Bld) 3.2 % Normal . [facility] Comment on above: Performed By: #### C UMARAL DewittONUAPLUS #### [address] [address] [place] Erythrocyte distribution width (RBC) [Ratio] 13.7 % Normal 11.9-15.3 [facility] Comment on above: Performed By: #### C UU, ADDONUAPLUS #### [address] Hematocrit (Bld) [Volume fraction] 30.4 % Low 34.0-46.4 [facility] Comment on above: Performed By: #### C UU, ADDONUAPLUS #### [address] Hemoglobin (Bld) [Mass/Vol] 10.1 g/dL Low 11.8-15.4 [facility] Comment on above: Performed By: #### C UU, ADDONUAPLUS #### [address] Lymphocytes (Bld) [#/Vol] 2.6 10*3/uL Normal 1.00-4.8 [facility] Comment on above: Performed By: #### C UU, ADDONUAPLUS #### [address] Lymphocytes/100 WBC (Bld) 40.3 % Normal . [facility] Comment on above: Performed By: #### C UU, ADDONUAPLUS #### [address] MCH (RBC) [Entitic mass] 25.7 pg Normal 24.7-34.3 [facility] Comment on above: Performed By: #### C UU, ADDONUAPLUS #### [address] MCV (RBC) [Entitic vol] 77.8 fL Low 80-100 [facility] Comment on above: Performed By: #### C UU, ADDONUAPLUS #### [address] Mean Corpuscular HGB Conc 33.1 g/dL Normal 32.0-35.0 [facility] Comment on above: Performed By: #### C UU, ADDONUAPLUS #### [address] Monocytes (Bld) [#/Vol] 0.4 10*3/uL Normal 0.0-0.8 [facility] Comment on above: Performed By: #### C UU, ADDONUAPLUS #### [address] Monocytes/100 WBC (Bld) 6.5 % Normal . [facility] Comment on above: Performed By: #### C UU, ADDONUAPLUS #### [address] Neutrophils (Bld) [#/Vol] 3.1 10*3/uL Normal 1.8-7.7 [facility] Comment on above: Performed By: #### C UU, ADDONUAPLUS #### [address] Neutrophils/100 WBC (Bld) 49.0 % Normal . [facility] Comment on above: Performed By: #### C UU, ADDONUAPLUS #### [address] NRBC% 0.0 /100{WBC} Normal 0-0.5 The [facility] Comment on above: Performed By: #### C UU, ADDONUAPLUS #### [address] Platelet mean volume (Bld) [Entitic vol] 9.1 fL Normal 6.3-10.7 The [facility] Comment on above: Performed By: #### C UU, ADDONUAPLUS #### [place] [address] [place] Platelets (Bld) [#/Vol] 266 10*3/uL Normal 150-450 [facility] Comment on above: Performed By: #### C UU, ADDONUAPLUS #### [place] [address] [place] RBC (Bld) [#/Vol] 3.91 10*6/uL Normal 3.60-5.00 [facility] Comment on above: Performed By: #### C UU, ADDONUAPLUS #### [address] WBC (Bld) [#/Vol] 6.4 10*3/uL Normal 3.8-11.6 [facility] Comment on above: Performed By: #### C UU, ADDONUAPLUS #### [address] Comprehensive Metabolic Pane krystin 11-24-2024 Albumin [Mass/Vol] 2.9 g/dL Low 3.5-5.7 The [facility] Comment on above: Performed By: #### C UU, ADDONUAPLUS #### [address] Anion gap [Moles/Vol] 9.1 mmol/L Normal 6.0-15.0 [facility] Comment on above: Performed By: #### C UU, ADDONUAPLUS #### [address] Calcium [Mass/Vol] 8.0 mg/dL Low 8.6-10.3 [facility] Comment on above: Performed By: #### C UU, ADDONUAPLUS #### [address] Chloride [Moles/Vol] 111 mmol/L High 98-107 [facility] Comment on above: Performed By: #### C UU, ADDONUAPLUS #### [address] CO2 [Moles/Vol] 22.9 mmol/L Normal 21.0-31.0 The [facility] Comment on above: Performed By: #### C UU, ADDONUAPLUS #### [address] Creatinine [Mass/Vol] 2.37 mg/dL High 0.60-1.20 [facility] Comment on above: Performed By: #### C UU, ADDONUAPLUS #### [address] Creatinine Clr Calc Pharmacy 18.91 Normal [facility] Comment on above: Performed By: #### C UU, ADDONUAPLUS #### [address] Estimated GFR 22.061 mL/Min Normal [facility] Comment on above: Performed By: #### C UU, ADDONUAPLUS #### [address] Glucose [Mass/Vol] 204 mg/dL Significant change up 70-100 [facility] Comment on above: Result Comment: [place] Glucose Reference Range is dependent on time and content of last meal. Glucose of more than 200 mg/dL in a nonstressed, ambulatory subject supports the diagnosis of Diabetes Mellitus. ADA recommended reference range Performed By: #### C UU, ADDONUAPLUS #### [address] Potassium [Moles/Vol] 5.0 mmol/L Normal 3.5-5.1 [facility] Comment on above: Performed By: #### C UU, ADDONUAPLUS #### [address] Sodium [Moles/Vol] 138 mmol/L Normal 136-145 [facility] Comment on above: Performed By: #### C UU, ADDONUAPLUS #### [address] Urea nitrogen [Mass/Vol] 52 mg/dL High 7-25 [facility] Comment on above: Performed By: #### C UU, ADDONUAPLUS #### [address] Globulin Calc (S) [Mass/Vol] Ordered By: Diane Smith on 11-24-2024 Globulin (S) [Mass/Vol] Serum globulin measurement by calculation (mass/volume) [facility] Glucose Poct Glucometerson 0 11-24-2024 Glucose [Mass/Vol] 166 mg/dL Normal [facility] Comment on above: Result Comment: [facility] Glucose Reference Range is dependent on time and content of last meal. Glucose of more than 200 mg/dL in a nonstressed, ambulatory subject supports the diagnosis of Diabetes Mellitus. PERFORMED BY: [place] [address] PATHOLOGIST LOCAL INTERMODAL TRUCK DRIVER NICK MOHR M.D. Performed By: #### G LULS #### Point of Care testing , Glucose [Mass/Vol] 89 mg/dL Normal [facility] Comment on above: Result Comment: [facility] Glucose Reference Range is dependent on time and content of last meal. Glucose of more than 200 mg/dL in a nonstressed, ambulatory subject supports the diagnosis of Diabetes Mellitus. PERFORMED BY: [place] [address] PATHOLOGIST LOCAL INTERMODAL TRUCK DRIVER NICK MOHR M.D. Performed By: #### G LULS #### Point of Care testing , Glucose [Mass/Vol] 238 mg/dL Normal [facility] Comment on above: Result Comment: [facility] Glucose Reference Range is dependent on time and content of last meal. Glucose of more than 200 mg/dL in a nonstressed, ambulatory subject supports the diagnosis of Diabetes Mellitus. PERFORMED BY: [place] [address] PATHOLOGIST LOCAL INTERMODAL TRUCK DRIVER NICK MOHR M.D. Performed By: #### C UU, ADDONUAPLUS #### [address] Hemoglobin A1c/Hemoglobin.to tae in BloodOrdered By: Irena Schuster on 11-24-2024 HbA1c (Bld) [Mass fraction] Hemoglobin A1c percentage High 4.3-5.6 [facility] Comment on above: Increased risk for d iabetes: 5.7 - 6.4diabetes: >6.4glycemic control for adults with diabetes: <7.0 HbA1c (Bld) [Mass fraction] 9.4 % High 4.3-5.6 [facility] Comment on above: Increased risk for d iabetes: 5.7 - 6.4diabetes: >6.4glycemic control for adults with diabetes: <7.0 Order Comment: Comme nt Add on Result Comment: Incr eased risk for diabetes: 5.7 - 6.4 diabetes: >6.4 glycemic control for adults with diabetes: <7.0 Performed By: #### G LUCARLOS MANUEL #### Point of Care testing , Magnesium [Mass/volume] in S ryan or PlasmaOrdered By: Diane Smith on 11-24-2024 Magnesium [Mass/Vol] Magnesium [Mass/vol ume] in Serum or Plasma 1.9-2.7 [facility] Magnesium [Mass/Vol] 2.0 mg/dL Normal 1.9-2.7 [facility] Comment on above: Result Comment: PERF ORMED BY: [place] [address] PATHOLOGIST LOCAL INTERMODAL TRUCK DRIVER NICK MOHR M.D. Performed By: #### C UU, ADDONUAPLUS #### [facility] [address] [place] [address] [place] Phosphoruson 11-24-2024 Phosphate [Mass/Vol] 3.9 mg/dL Normal 2.5-4.5 [facility] Comment on above: Performed By: #### C UU, ADDONUAPLUS #### [facility] [address] [place] [address] [place] Protein [Mass/volume] in Ser um or PlasmaOrdered By: Diane Smith on 11-24-2024 Protein [Mass/Vol] Protein [Mass/volume ] in Serum or Plasma 6.4-8.9 [facility] Protein [Mass/Vol] 6.5 g/dL Normal 6.4-8.9 [facility] Comment on above: Performed By: #### C UU, ADDONUAPLUS #### [facility] [address] Serum globulin measurement b y calculation (mass/volume)Ordered By: Diane Smith on 11-24-2024 Globulin (S) [Mass/Vol] 3.6 g/dL Normal [facility] Comment on above: Performed By: #### C UU, ADDONUAPLUS #### [facility] [address] [place] [address] Serum or plasma albumin/glob ulin mass ratioOrdered By: Diane Smith on 11-24-2024 Albumin/Globulin [Mass ratio] Serum or plasma albumin/globulin mass ratio [facility] Albumin/Globulin [Mass ratio] 0.8 {ratio} Normal [facility] Comment on above: Performed By: #### C UU, ADDONUAPLUS #### [facility] [address] [place] [address] X-ray reportOrdered By: Dean Potter on 11-24-2024 Study report [facility] Main [place] [address] [place] [address] XRay Report Signed Patient: Aislinn Wheeler MR#: [id number] : 1960 Acct:[id number] Age/Sex: 64 / F ADM Date: 5 Loc: Room: [address] [place] [address] Type: ADM IN Attending Dr: Diane Smith [...] Raf Potter M.D.11/24/2024 2:48 PM Dictation Location: [place] [address] Transcribed By: AMEE 11/24/24 6927 Dictated By: Raf Potter MD 11/24/24 1446 Signed By: 11/24/24 1448 [facility] Work Phone: Study report [facility] Main [address] [address] XRay Report Signed Patient: Aislinn Wheeler MR#: [id number] : 1960 Acct:[id number] Age/Sex: 64 / F ADM Date: 5 Loc: 3T Room: [address] [place] [address] Type: ADM IN Attending Dr: Diane Smith [...] Raf Potter M.D.11/24/2024 8:07 AM Dictation Location: [place] [address] Transcribed By: AMEE 11/24/24 08 Dictated By: Raf Potter MD 11/24/24 08 Signed By: 11/24/24 0807 [facility] Work Phone: XR foot RT 2Von 11-24-2024 XR foot RT 2V [facility] Main [address] [address] XRay Report Signed Patient: Aislinn Wheeler MR#: [id number] 01 : 1960 Acct:[id number] Age/Sex: 64 / F ADM Date: 11/23/24 Loc: 3T Room: [address] [place] [address] Type: ADM IN Attending Dr: Diane Smith MD Copies to: MohMD Cory Shirley DPM Ordering Provider: Cory Angeles DPM Date [...] Raf Potter M.D.11/24/2024 2:48 PM Dictation Location: [place] [address] Transcribed By: AMEE 11/24/24 1448 Dictated By: Raf Potter MD 11/24/24 1446 Signed By: 11/24/24 1448 Normal [facility] XR foot RT 2V [facility] [place] [place] [address] XRay Report Signed Patient: Aislinn Wheeler MR#: [id number] 01 : 1960 Acct:[id number] Age/Sex: 64 / F ADM Date: 11/23/24 Loc: Room: [address] [place] [address] Type: ADM IN Attending Dr: Diane Smith [...] Raf Potter M.D.11/24/2024 8:07 AM Dictation Location: [facility]- Transcribed By: AMEE 11/24/24806 Dictated By: Raf Potter MD 11/24/24804 Signed By: 11/24/24806 Normal [facility] Alanine aminotransferase [En zymatic activity/volume] in Serum or PlasmaOrdered By: Jr Layne on 11-23-2024 ALT [Catalytic activity/Vol] Alanine aminotransferase [Enzymatic activity/volume] in Serum or Plasma 752 [facility] Albumin [Mass/volume] in Ser um or Plasma by Bromocresol green (BCG) dye binding methoOrdered By: Jr Layne on 11-23-2024 Albumin BCG dye [Mass/Vol] Albumin [Mass/volume] in Serum or Plasma by Bromocresol green (BCG) dye binding metho Low 3.5-5.7 [facility] Alkaline phosphatase [Enzyma tic activity/volume] in Serum or PlasmaOrdered By: Jr Layne on 11-23-2024 ALP [Catalytic activity/Vol] Alkaline phosphatase [Enzymatic activity/volume] in Serum or Plasma 34-104 [facility] Appearance of UrineOrdered B y: Jr Layne on 11-23-2024 Appearance (U) Urine appearance Clear [facility] Appearance (U) Clear Normal Clear [facility] Comment on above: Order Comment: Name Collection Type:: Clean-Voided Midstream Performed By: #### C UU, ADDONUAPLUS #### [address] Aspartate aminotransferase [ Enzymatic activity/volume] in Serum or PlasmaOrdered By: Jr Layne on 11-23-2024 AST [Catalytic activity/Vol] Aspartate aminotransferase [Enzymatic activity/volume] in Serum or Plasma 13-39 [facility] BNP ser/plasOrdered By: Jr Layne on 11-23-2024 Natriuretic peptide B (Bld) [Mass/Vol] 126.0 pg/mL High 5-100 [facility] Comment on above: Result Comment: PERF ORMED BY: [place] [address] PATHOLOGIST LOCAL INTERMODAL TRUCK DRIVER NICK MOHR M.D. Performed By: #### G LULS #### Point of Care testing , Bacteria [Presence] in Urine by AutomatedOrdered By: Jr Layne on 11-23-2024 Bacteria Auto Ql (U) Bacteria [Presence] in Urine by Automated None Seen [facility] Bacteria Auto Ql (U) None seen [HPF] None Seen [facility] Basic Metabolic Panelon 04 Anion gap [Moles/Vol] 11.4 mmol/L Normal 6.0-15.0 Th e [facility] Comment on above: Performed By: #### H S TROP #### [address] Calcium [Mass/Vol] 8.9 mg/dL Normal 8.6-10.3 [facility] Comment on above: Performed By: #### H S TROP #### [address] Chloride [Moles/Vol] 111 mmol/L High 98-107 [facility] Comment on above: Performed By: #### H S TROP #### [address] CO2 [Moles/Vol] 19.3 mmol/L Low 21.0-31.0 [facility] Comment on above: Performed By: #### H S TROP #### [address] Creatinine [Mass/Vol] 2.46 mg/dL High 0.60-1.20 [facility] Comment on above: Performed By: #### H S TROP #### [place] [address] [place] Creatinine Clr Calc Pharmacy 18.24 Normal [facility] Comment on above: Result Comment: PERF ORMED BY: [place] [address] PATHOLOGIST LOCAL INTERMODAL TRUCK DRIVER NICK MOHR M.D. Performed By: #### H S TROP #### [address] Estimated GFR 21.096 mL/Min Normal [facility] Comment on above: Performed By: #### H S TROP #### [facility] [address] Glucose [Mass/Vol] 99 mg/dL Normal 70-100 [facility] Comment on above: Result Comment: [place] Glucose Reference Range is dependent on time and content of last meal. Glucose of more than 200 mg/dL in a nonstressed, ambulatory subject supports the diagnosis of Diabetes Mellitus. ADA recommended reference range Performed By: #### H S TROP #### [address] Potassium [Moles/Vol] 4.7 mmol/L Normal 3.5-5.1 [facility] Comment on above: Performed By: #### H S TROP #### [address] Sodium [Moles/Vol] 137 mmol/L Normal 136-145 [facility] Comment on above: Performed By: #### H S TROP #### [address] Urea nitrogen [Mass/Vol] 54 mg/dL High 7-25 [facility] Comment on above: Performed By: #### H S TROP #### [address] Basophils Auto (Bld) [#/Vol] Ordered By: Jr Layne on 11-23-2024 Basophils (Bld) [#/Vol] Automated basophil count 0.0-0.2 [facility] Basophils/100 WBC Auto (Bld) Ordered By: Jr Layne on 11-23-2024 Basophils/100 WBC (Bld) Automated basophil % . [facility] Bilirubin Test strip Ql (U)O rdered By: Jr Layne on 11-23-2024 Bilirubin Ql (U) Bilirubin.total [Presence] in Urine by Test strip Negative [facility] Bilirubin Ql (U) Negative Negative [facility] Bilirubin.total [Mass/volume ] in Serum or PlasmaOrdered By: Jr Layne on 11-23-2024 Bilirubin [Mass/Vol] Bilirubin.total [Mass/volume] in Serum or Plasma Low 0.3-1.0 [facility] C reactive protein [Mass/vol ume] in Serum or PlasmaOrdered By: Diane Smith on 11-23-2024 CRP [Mass/Vol] C reactive protein [Mass/volume] in Serum or Plasma 0.0-0.5 [facility] CRP [Mass/Vol] < 0.5 mg/dL 0.0-0.5 [facility] C-Reactive Proteinon 025 CRP [Mass/Vol] mg/L Normal 0.0-0.5 [facility] Comment on above: Result Comment: PERF ORMED BY: [place] [address] PATHOLOGIST LOCAL INTERMODAL TRUCK DRIVER NICK MOHR M.D. Performed By: #### C AMY COLÓN #### [address] abdomen pelvis wo conon 0 11-23-2024 CT abdomen pelvis wo con [facility] Main [place] [address] [place] [address] CT Scan Report Signed Patient: Aislinn Wheeler MR#: [id number] 01 : 1960 Acct:[id number] Age/Sex: 64 / F ADM Date: 11/23/24 Loc: Room: [address] [place] [address] Type: ADM IN Attending Dr: Diane Smith [...] Raf Potter M.D.11/23/2024 6:50 PM Dictation Location: [place] [address] Transcribed By: [facility] 11/23/241849 Dictated By: Raf Potter MD 11/23/24 183 Signed By: 11/23/241849 Normal [facility] Calcium [Mass/volume] in Ser um or PlasmaOrdered By: Jr Layne on 11-23-2024 Calcium [Mass/Vol] Calcium [Mass/volume ] in Serum or Plasma 8.6-10.3 [facility] Carbon dioxide, total [Moles /volume] in Serum or PlasmaOrdered By: Jr Layne on 11-23-2024 CO2 [Moles/Vol] Carbon dioxide, tota l [Moles/volume] in Serum or Plasma Low 21.0-31.0 [facility] Chloride [Moles/volume] in S ryan or PlasmaOrdered By: Jr Layne on 11-23-2024 Chloride [Moles/Vol] Chloride [Moles/vol ume] in Serum or Plasma 98-107 [facility] Color Auto (U)Ordered By: Dagoberto Layne on 11-23-2024 Color (U) Color of Urine by Auto Yellow [facility] Color of Urine by AutoOrdere d By: Jr Layne on 11-23-2024 Color (U) Colorless Normal Yellow [facility] Comment on above: Order Comment: Name Collection Type:: Clean-Voided Midstream Performed By: #### C UU, ADDONUAPLUS #### [address] Complete Blood Count Auto Di ffon 11-23-2024 Basophils (Bld) [#/Vol] 0.1 10*3/uL Normal 0.0-0.2 [facility] Comment on above: Result Comment: PERF ORMED BY: [place] [address] PATHOLOGIST LOCAL INTERMODAL TRUCK DRIVER NICK MOHR M.D. Performed By: #### C BC #### [address] Basophils/100 WBC (Bld) 1.0 % Normal . [facility] Comment on above: Performed By: #### C BC #### [place] [address] [place] Eosinophils (Bld) [#/Vol] 0.2 10*3/uL Normal 0.0-0.45 [facility] Comment on above: Performed By: #### C BC #### [address] Eosinophils/100 WBC (Bld) 3.1 % Normal . [facility] Comment on above: Performed By: #### C BC #### [address] Erythrocyte distribution width (RBC) [Ratio] 13.7 % Normal 11.9-15.3 [facility] Comment on above: Performed By: #### C BC #### [address] Hematocrit (Bld) [Volume fraction] 31.5 % Low 34.0-46.4 [facility] Comment on above: Performed By: #### C BC #### [address] Hemoglobin (Bld) [Mass/Vol] 10.7 g/dL Low 11.8-15.4 [facility] Comment on above: Performed By: #### C BC #### [address] Lymphocytes (Bld) [#/Vol] 2.4 10*3/uL Normal 1.00-4.8 [facility] Comment on above: Performed By: #### C BC #### [address] Lymphocytes/100 WBC (Bld) 37.2 % Normal . [facility] Comment on above: Performed By: #### C BC #### [address] MCH (RBC) [Entitic mass] 26.5 pg Normal 24.7-34.3 [facility] Comment on above: Performed By: #### C BC #### [address] MCV (RBC) [Entitic vol] 78.3 fL Low 80-100 [facility] Comment on above: Performed By: #### C BC #### [address] Mean Corpuscular HGB Conc 33.8 g/dL Normal 32.0-35.0 [facility] Comment on above: Performed By: #### C BC #### [address] Monocytes (Bld) [#/Vol] 0.4 10*3/uL Normal 0.0-0.8 [facility] Comment on above: Performed By: #### C BC #### [address] Monocytes/100 WBC (Bld) 18.48 % Normal 0.00-20.00 [facility] Comment on above: Performed By: #### C BC #### [address] Monocytes/100 WBC (Bld) 6.9 % Normal . [facility] Comment on above: Performed By: #### C BC #### [address] Neutrophils (Bld) [#/Vol] 3.3 10*3/uL Normal 1.8-7.7 [facility] Comment on above: Performed By: #### C BC #### [address] Neutrophils/100 WBC (Bld) 51.8 % Normal . [facility] Comment on above: Performed By: #### C BC #### [address] NRBC% 0.1 /100{WBC} Normal 0-0.5 [facility] Comment on above: Performed By: #### C BC #### [address] Platelet mean volume (Bld) [Entitic vol] 8.9 fL Normal 6.3-10.7 [facility] Comment on above: Performed By: #### C BC #### [place] [address] [place] Platelets (Bld) [#/Vol] 279 10*3/uL Normal 150-450 [facility] Comment on above: Performed By: #### C BC #### [place] [address] [place] RBC (Bld) [#/Vol] 4.02 10*6/uL Normal 3.60-5.00 [facility] Comment on above: Performed By: #### C BC #### [place] [address] [place] WBC (Bld) [#/Vol] 6.4 10*3/uL Normal 3.8-11.6 [facility] Comment on above: Performed By: #### C BC #### [address] Comprehensive Metabolic Pane krystin 11-23-2024 Albumin [Mass/Vol] 3.4 g/dL Low 3.5-5.7 [facility] Comment on above: Performed By: #### C UU ADDONUAPLUS #### [address] Albumin/Globulin [Mass ratio] 0.8 {ratio} Normal [facility] Comment on above: Performed By: #### C URenate ADDONUAPLUS #### [address] ALP [Catalytic activity/Vol] 93 U/L Normal 34-104 [facility] Comment on above: Performed By: #### C KATARZYNA ADDONUAPLUS #### [address] ALT [Catalytic activity/Vol] 17 U/L Normal 7-52 [facility] Comment on above: Performed By: #### C KATARZYNA ADDONUAPLUS #### [address] Anion gap [Moles/Vol] 13.1 mmol/L Normal 6.0-15.0 e [facility] Comment on above: Performed By: #### C UU ADDONUAPLUS #### [address] AST [Catalytic activity/Vol] 17 U/L Normal 13-39 [facility] Comment on above: Performed By: #### C UU ADDONUAPLUS #### [address] Bilirubin [Mass/Vol] 0.2 mg/dL Low 0.3-1.0 [facility] Comment on above: Performed By: #### C URenate ADDONUAPLUS #### [address] Calcium [Mass/Vol] 8.8 mg/dL Normal 8.6-10.3 [facility] Comment on above: Performed By: #### C URenate ADDONUAPLUS #### [address] Chloride [Moles/Vol] 107 mmol/L Normal 98-107 [facility] Comment on above: Performed By: #### C URenate ADDONUAPLUS #### [address] CO2 [Moles/Vol] 20.4 mmol/L Low 21.0-31.0 [facility] Comment on above: Performed By: #### C URenate ADDONUAPLUS #### [address] Creatinine [Mass/Vol] 2.62 mg/dL High 0.60-1.20 [facility] Comment on above: Performed By: #### C URenate ADDONUAPLUS #### [address] Creatinine Clr Calc Pharmacy 17.13 Normal [facility] Comment on above: Performed By: #### C URenate ADDONUAPLUS #### [address] Estimated GFR 19.560 mL/Min Normal [facility] Comment on above: Performed By: #### C URenate ADDONUAPLUS #### [address] Globulin (S) [Mass/Vol] 4.3 g/dL Normal [facility] Comment on above: Performed By: #### C URenate ADDONUAPLUS #### [address] Glucose [Mass/Vol] 190 mg/dL High 70-100 [facility] Comment on above: Result Comment: [place] Glucose Reference Range is dependent on time and content of last meal. Glucose of more than 200 mg/dL in a nonstressed, ambulatory subject supports the diagnosis of Diabetes Mellitus. ADA recommended reference range Performed By: #### C UU, ADDONUAPLUS #### [facility] [address] Potassium [Moles/Vol] 5.5 mmol/L High 3.5-5.1 [facility] Comment on above: Performed By: #### C UU, ADDONUAPLUS #### [address] Protein [Mass/Vol] 7.7 g/dL Normal 6.4-8.9 [facility] Comment on above: Performed By: #### C UU, ADDONUAPLUS #### [address] Sodium [Moles/Vol] 135 mmol/L Low 136-145 [facility] Comment on above: Performed By: #### C UU, ADDONUAPLUS #### [address] Urea nitrogen [Mass/Vol] 55 mg/dL High 7-25 [facility] Comment on above: Performed By: #### C UU, ADDONUAPLUS #### [address] Creatinine [Mass/volume] in Serum or PlasmaOrdered By: Jr Layne on 11-23-2024 Creatinine [Mass/Vol] Creatinine [Mass/v olume] in Serum or Plasma High 0.60-1.20 [facility] Dipstick and Microscopicon 0 11-23-2024 Bacteria,Urine None Seen Normal None Seen [facility] Comment on above: Order Comment: Name Collection Type:: Clean-Voided Midstream Performed By: #### C UU, ADDONUAPLUS #### [place] [address] [place] Bilirubin,Urine Negative Normal Negative [facility] Comment on above: Order Comment: Name Collection Type:: Clean-Voided Midstream Performed By: #### C UU, ADDONUAPLUS #### [address] Glucose Ql (U) 500 mg/dL High Normal [facility] Comment on above: Order Comment: Name Collection Type:: Clean-Voided Midstream Performed By: #### C UU, ADDONUAPLUS #### [place] [address] [place] Hyaline Casts,Urine None Normal 0-8 [facility] Comment on above: Order Comment: Name Collection Type:: Clean-Voided Midstream Result Comment: PERF ORMED BY: [place] [address] PATHOLOGIST LOCAL INTERMODAL TRUCK DRIVER NICK MOHR M.D. Performed By: #### C UU, ADDONUAPLUS #### [place] [address] [place] Nitrite,Urine Negative Normal Negative [facility] Comment on above: Order Comment: Name Collection Type:: Clean-Voided Midstream Performed By: #### C UU, ADDONUAPLUS #### [place] [address] [place] Occult Blood,Urine Negative Normal Negative [facility] Comment on above: Order Comment: Name Collection Type:: Clean-Voided Midstream Result Comment: PERF ORMED BY: [place] [address] PATHOLOGIST LOCAL INTERMODAL TRUCK DRIVER NICK MOHR M.D. Performed By: #### C UU, ADDONUAPLUS #### [place] [address] [place] RBC,Urine 1-2 Normal 0-4 [facility] Comment on above: Order Comment: Name Collection Type:: Clean-Voided Midstream Performed By: #### C UU, ADDONUAPLUS #### [place] [address] [place] Specificy [place],Urine 1.010 Normal 1.001-1.030 [facility] Comment on above: Order Comment: Name Collection Type:: Clean-Voided Midstream Performed By: #### C UU, ADDONUAPLUS #### [facility] [address] Squamous Epithelial Cell,Urine 1-2 Normal 0-2 [facility] Comment on above: Order Comment: Name Collection Type:: Clean-Voided Midstream Performed By: #### C UU, ADDONUAPLUS #### [facility] [address] [place] [id number] [facility] Urobilinogen,Urine Normal Normal Normal [facility] Comment on above: Order Comment: Name Collection Type:: Clean-Voided Midstream Performed By: #### C UU, ADDONUAPLUS #### [facility] [address] WBC,Urine 5-9 High 0-4 [facility] Comment on above: Order Comment: Name Collection Type:: Clean-Voided Midstream Performed By: #### C UU, ADDONUAPLUS #### [address] ECG 12 lead ECGon 11-23-2024 ECG 12 lead ECG [facility] Main [place] [address] [place] [address] Electrocardiograph Report Signed Patient: Aislnin Wheeler MR#: [id number] [birth year] : 1960 Acct:[id number] Age/Sex: 64 / F ADM Date: 11/23/24 Loc: Room: [address] [place] [address] Type: ADM IN Attending Dr: Diane Smith [...] Inferior leads Confirmed by JR LAYNE DO ([id number]) on 11/23/2024 7:14:08 PM Referred By: Electronically Signed By: JR LAYNE DO Transcribed By: MUS Signed By Jr Layne DO 11/23 1914 Normal [facility] Eosinophils Auto (Bld) [#/Vo l]Ordered By: Jr Layne on 11-23-2024 Eosinophils (Bld) [#/Vol] Automated eosinophil count 0.0-0.45 [facility] Eosinophils/100 WBC Auto (Bl d)Ordered By: Jr Layne on 11-23-2024 Eosinophils/100 WBC (Bld) Automated eosinophil % . [facility] Epithelial cells.squamous [# /area] in Urine sediment by Automated countOrdered By: Jr Layne on 11-23-2024 Epithelial cells.squamous Auto (Urine sed) [#/Area] Epithelial cells.squamous [#/area] in Urine sediment by Automated count 0-2 [facility] Epithelial cells.squamous Auto (Urine sed) [#/Area] 1-2 [HPF] 0-2 [facility] Erythrocyte Sedimentation Ra sam 11-23-2024 ESR (Bld) [Velocity] 66 mm/h High 0-29 [facility] Comment on above: Result Comment: PERF ORMED BY: [place] [address] PATHOLOGIST LOCAL INTERMODAL TRUCK DRIVER NICK MOHR M.D. Performed By: #### C URenate, ADDONUAPLUS #### [address] Erythrocyte distribution wid th Auto (RBC) [Ratio]Ordered By: Jr Layne on 11-23-2024 Erythrocyte distribution width (RBC) [Ratio] Erythrocyte distribution width [Ratio] by Automated count 11.9-15.3 [facility] Erythrocyte sedimentation ra te by Photometric methodOrdered By: Diane Smith on 11-23-2024 ESR Photometric method (Bld) [Velocity] Erythrocyte sedimentation rate by Photometric method High 0-29 [facility] ESR Photometric method (Bld) [Velocity] 66 mm/hr High 0-29 [facility] Erythrocytes [#/area] in Uri ne sediment by Automated countOrdered By: Jr Layne on 11-23-2024 RBC Auto (Urine sed) [#/Area] Erythrocytes [#/area] in Urine sediment by Automated count 0-4 [facility] RBC Auto (Urine sed) [#/Area] 1-2 [HPF] 0-4 [facility] Globulin Calc (S) [Mass/Vol] Ordered By: Jr Layne on 11-23-2024 Globulin (S) [Mass/Vol] Serum globulin measurement by calculation (mass/volume) [facility] Glucose Poct Glucometerson 0 11-23-2024 Glucose [Mass/Vol] 122 mg/dL Normal [facility] Comment on above: Result Comment: [place] Glucose Reference Range is dependent on time and content of last meal. Glucose of more than 200 mg/dL in a nonstressed, ambulatory subject supports the diagnosis of Diabetes Mellitus. PERFORMED BY: [facility] [address] [place] [address] PATHOLOGIST LOCAL INTERMODAL TRUCK DRIVER NICK MOHR M.D. Performed By: #### G LUCARLOS MANUEL #### Point of Care testing , Glucose [Mass/volume] in Ser um or PlasmaOrdered By: Jr Layne on 11-23-2024 Glucose [Mass/Vol] Glucose [Mass/volume ] in Serum or Plasma High 70-100 [facility] Comment on above: ADA recommended refe rence [...] in Urine by Test strip High Normal [facility] Glucose Test strip (U) [Mass/Vol] 500 mg/dL High Normal [facility] Hematocrit Auto (Bld) [Volum e fraction]Ordered By: Jr Layne on 11-23-2024 Hematocrit (Bld) [Volume fraction] Hematocrit [Volume Fraction] of Blood by Automated count Low 34.0-46.4 [facility] Hemoglobin Test strip Ql (U) Ordered By: Jr Layne on 11-23-2024 Hemoglobin Ql (U) Hemoglobin [Presence ] in Urine by Test strip Negative [facility] Hemoglobin Ql (U) Negative Negative [facility] Hemoglobin [Mass/volume] in BloodOrdered By: Jr Layne on 11-23-2024 Hemoglobin (Bld) [Mass/Vol] Hemoglobin [Mass/volume] in Blood Low 11.8-15.4 [facility] Hyaline casts [#/area] in Ur ine sediment by Automated countOrdered By: Jr Layne on 11-23-2024 Hyaline casts Auto (Urine sed) [#/Area] Hyaline casts [#/area] in Urine sediment by Automated count 0-8 [facility] Hyaline casts Auto (Urine sed) [#/Area] None [LPF] 0-8 [facility] INR in Platelet poor plasma by Coagulation assayOrdered By: Jr Layne on 11-23-2024 INR Coag (PPP) [Relative time] INR in Platelet poor plasma by Coagulation assay [facility] Comment on above: INR Therapeutic Rang e A) Pre- and Peroperative OAT started two weeks before surgery. NOT HIP SURGERY: 1.5 - 2.5 HIP SURGERY: 2 - 3B) Primary and secondary prevention of venous THROMBOSIS: 2 - 3C) Active venous thrombosis, pulmonary embolismand prevention of recurrent venous thrombosis: 2 - 3D) Prevention of arterial thromboembolismincluding patients with mechanical heart valves: 3 - 4.5 INR Coag (PPP) [Relative time] 0.9 {INR} Normal [facility] Comment on above: INR Therapeutic Rang e A) Pre- and Peroperative OAT started two weeks before surgery. NOT HIP SURGERY: 1.5 - 2.5 HIP SURGERY: 2 - 3B) Primary and secondary prevention of venous THROMBOSIS: 2 - 3C) Active venous thrombosis, pulmonary embolismand prevention of recurrent venous thrombosis: 2 - 3D) Prevention of arterial thromboembolismincluding patients with mechanical heart valves: 3 - 4.5 Result Comment: INR Therapeutic Range A) Pre- [...] heart valves: 3 - 4.5 PERFORMED BY: [place] [address] PATHOLOGIST LOCAL INTERMODAL TRUCK DRIVER NICK MOHR M.D. Performed By: #### G LULS #### Point of Care testing , Ketones Test strip Ql (U)Ord ered By: Jr Layne on 11-23-2024 Ketones Ql (U) Ketones [Presence] i n Urine by Test strip Negative [facility] Ketones [Presence] in Urine by Test stripOrdered By: Jr Layne on 11-23-2024 Ketones Ql (U) Negative Normal Negative [facility] Comment on above: Order Comment: Name Collection Type:: Clean-Voided Midstream Performed By: #### C UU, ADDONUAPLUS #### [address] Leukocyte esterase [Presence ] in Urine by Test stripOrdered By: Jr Layne on 11-23-2024 Leukocyte esterase Test strip Ql (U) Leukocyte esterase [Presence] in Urine by Test strip High Negative [facility] Leukocyte esterase Test strip Ql (U) 2+ High Negative [facility] Comment on above: Order Comment: Name Collection Type:: Clean-Voided Midstream Performed By: #### C UU, ADDONUAPLUS #### [facility] [address] [place] [address] Leukocytes [#/area] in Urine sediment by Automated countOrdered By: Jr Layne on 11-23-2024 WBC Auto (Urine sed) [#/Area] Leukocytes [#/area] in Urine sediment by Automated count High 0-4 [facility] WBC Auto (Urine sed) [#/Area] 5-9 [HPF] High 0-4 [facility] Leukocytes [#/volume] correc madhavi for nucleated erythrocytes in Blood by Automated counOrdered By: Jr Layne on 11-23-2024 WBC corrected for nucl RBC Auto (Bld) [#/Vol] Leukocytes [#/volume] corrected for nucleated erythrocytes in Blood by Automated coun 3.8-11.6 [facility] Lymphocytes Auto (Bld) [#/Vo l]Ordered By: Jr Layne on 11-23-2024 Lymphocytes (Bld) [#/Vol] Lymphocytes [#/volume] in Blood by Automated count 1.00-4.8 [facility] Lymphocytes/100 WBC Auto (Bl d)Ordered By: Jr Layne on 11-23-2024 Lymphocytes/100 WBC (Bld) Lymphocytes/100 leukocytes in Blood by Automated count . [facility] MCH Auto (RBC) [Entitic mass ]Ordered By: Jr Layne on 11-23-2024 MCH (RBC) [Entitic mass] MCH [Entitic mass] by Automated count 24.7-34.3 [facility] MCHC Auto (RBC) [Mass/Vol]Or dered By: Jr Layne on 11-23-2024 MCHC (RBC) [Mass/Vol] MCHC [Mass/volume] by Automated count 32.0-35.0 [facility] MCV Auto (RBC) [Entitic vol] Ordered By: Jr Layne on 11-23-2024 MCV (RBC) [Entitic vol] MCV [Entitic volume] by Automated count Low 80-100 [facility] Magnesiumon 11-23-2024 Magnesium [Mass/Vol] 2.1 mg/dL Normal 1.9-2.7 [facility] Comment on above: Result Comment: PERF ORMED BY: [place] [address] PATHOLOGIST LOCAL INTERMODAL TRUCK DRIVER NICK MOHR M.D. Performed By: #### [facility] #### [address] Magnesium [Mass/volume] in S ryan or PlasmaOrdered By: Jr Layne on 11-23-2024 Magnesium [Mass/Vol] Magnesium [Mass/vol ume] in Serum or Plasma 1.9-2.7 [facility] Monocyte distribution width [Entitic volume] in Blood by AutomatedOrdered By: Jr Layne on 11-23-2024 Monocyte distribution width Auto (Bld) [Entitic vol] Monocyte distribution width [Entitic volume] in Blood by Automated 0.00-20.00 [facility] Monocyte distribution width Auto (Bld) [Entitic vol] 18.48 % 0.00-20.00 [facility] Monocytes Auto (Bld) [#/Vol] Ordered By: Jr Layne on 11-23-2024 Monocytes (Bld) [#/Vol] Automated blood monocyte count 0.0-0.8 [facility] Monocytes/100 WBC Auto (Bld) Ordered By: Jr Layne on 11-23-2024 Monocytes/100 WBC (Bld) Automated monocyte % . [facility] Natriuretic peptide B [Mass/ Vol]Ordered By: Jr Layne on 11-23-2024 Natriuretic peptide B (Bld) [Mass/Vol] BNP ser/plas High 5-100 [facility] Neutrophils Auto (Bld) [#/Vo l]Ordered By: Jr Layne on 11-23-2024 Neutrophils (Bld) [#/Vol] Neutrophils [#/volume] in Blood by Automated count 1.8-7.7 [facility] Neutrophils/100 WBC Auto (Bl d)Ordered By: Jr Layne on 11-23-2024 Neutrophils/100 WBC (Bld) Automated neutrophil % . [facility] Nitrite Test strip Ql (U)Ord ered By: Jr Layne on 11-23-2024 Nitrite Ql (U) Nitrite [Presence] i n Urine by Test strip Negative [facility] Nitrite Ql (U) Negative Negative [facility] No Panel InformationOrdered By: Jr Layne on 11-23-2024 Estimated GFR (CKD-EPI) 19.560 mL/Min [facility] Creatinine Clearance (Chem 17.13 [facility] Nucleated erythrocytes [Pres ence] in Blood by Automated countOrdered By: Jr Layne on 11-23-2024 Nucleated RBC Auto Ql (Bld) Nucleated erythrocytes [Presence] in Blood by Automated count 0-0.5 [facility] Platelet mean volume Auto (B ld) [Entitic vol]Ordered By: Jr Layne on 11-23-2024 Platelet mean volume (Bld) [Entitic vol] Platelet mean volume [Entitic volume] in Blood by Automated count 6.3-10.7 [facility] Platelets Auto (Bld) [#/Vol] Ordered By: Jr Layne on 11-23-2024 Platelets (Bld) [#/Vol] Platelets [#/volume] in Blood by Automated count 150-450 [facility] Potassium [Moles/volume] in Serum or PlasmaOrdered By: Jr Layne on 11-23-2024 Potassium [Moles/Vol] Potassium [Moles/v olume] in Serum or Plasma High 3.5-5.1 [facility] Protein Test strip (U) [Mass /Vol]Ordered By: Jr Layne on 11-23-2024 Protein (U) [Mass/Vol] Protein [Mass/volume] in Urine by Test strip High Negative [facility] Protein [Mass/volume] in Ser um or PlasmaOrdered By: Jr Layne on 11-23-2024 Protein [Mass/Vol] Protein [Mass/volume ] in Serum or Plasma 6.4-8.9 [facility] Protein [Mass/volume] in Uri ne by Test stripOrdered By: Jr Layne on 11-23-2024 Protein (U) [Mass/Vol] 100 mg/dL High Negative [facility] Comment on above: Order Comment: Name Collection Type:: Clean-Voided Midstream Performed By: #### C UU, ADDONUAPLUS #### [address] Prothrombin time (PT)Ordered By: Jr Layne on 11-23-2024 PT Coag (PPP) [Time] Prothrombin time (PT) 9.0- 12.9 [facility] Comment on above: A hematocrit value g reater than 55% may lead to inaccurate results in coagulation testing. Patients having hematocrit values >55% require a special collection tube for coagulation studies. Please contact the laboratory at [phone] for redraw instructions. PT Coag (PPP) [Time] 10.6 s Normal 9.0-12.9 [facility] Comment on above: A hematocrit value g reater than 55% may lead to inaccurate results in coagulation testing. Patients having hematocrit values >55% require a special collection tube for coagulation studies. Please contact the laboratory at [phone] for redraw instructions. Result Comment: A he matocrit value greater than 55% may lead to inaccurate results in coagulation testing. Patients having hematocrit values >55% require a special collection tube for coagulation studies. Please contact the laboratory at [phone] for redraw instructions. Performed By: #### G LULS #### Point of Care testing , RBC Auto (Bld) [#/Vol]Ordere d By: Jr Layne on 11-23-2024 RBC (Bld) [#/Vol] Erythrocytes [#/volu me] in Blood by Automated count 3.60-5.00 [facility] Serum or plasma albumin/glob ulin mass ratioOrdered By: Jr Layne on 11-23-2024 Albumin/Globulin [Mass ratio] Serum or plasma albumin/globulin mass ratio [facility] Serum or plasma anion gap de terminationOrdered By: Jr Layne on 11-23-2024 Anion gap [Moles/Vol] Serum or plasma an ion gap determination 6.0-15.0 [facility] Sodium [Moles/volume] in Ser um or PlasmaOrdered By: Jr Layne on 11-23-2024 Sodium [Moles/Vol] Sodium [Moles/volume ] in Serum or Plasma Low 136-145 [facility] Specific gravity Test strip (U) [Rel density]Ordered By: Jr Layne on 11-23-2024 Specific gravity (U) [Rel density] Specific gravity of Urine by Test strip 1.001-1.030 [facility] Specific gravity (U) [Rel density] 1.010 1.001-1.030 [facility] Troponin I High Sensitivityo n 11-23-2024 Troponin I High Sensitivity 7 Normal 0-15 [facility] Comment on above: Result Comment: The Troponin units of report have been changed to meet the Chest Pain Accreditation requirement, element EC5.M1l2. Troponin units are changed from pg/ml to ng/L. Also, the decimal is removed and results are in whole numbers. PERFORMED BY: [place] [address] PATHOLOGIST LOCAL INTERMODAL TRUCK DRIVER NICK MOHR M.D. Performed By: #### H S TROP #### [address] Troponin I High Sensitivity 7 Normal 0-15 [facility] Comment on above: Result Comment: The Troponin units of report have been changed to meet the Chest Pain Accreditation requirement, element EC5.M1l2. Troponin units are changed from pg/ml to ng/L. Also, the decimal is removed and results are in whole numbers. PERFORMED BY: [place] [address] PATHOLOGIST LOCAL INTERMODAL TRUCK DRIVER NICK MOHR M.D. Performed By: #### G LULS #### Point of Care testing , Troponin I High Sensitivity 6 Normal 0-15 [facility] Comment on above: Result Comment: The Troponin units of report have been changed to meet the Chest Pain Accreditation requirement, element EC5.M1l2. Troponin units are changed from pg/ml to ng/L. Also, the decimal is removed and results are in whole numbers. PERFORMED BY: [place] [address] PATHOLOGIST LOCAL INTERMODAL TRUCK DRIVER NICK MOHR M.D. Performed By: #### H S TROP #### [address] Troponin I.cardiac [Mass/vol ume] in Serum or Plasma by Detection limit <= 0.01 ng/Ordered By: Diane Smith on 11-23-2024 Troponin I.cardiac DL <= 0.01 ng/mL [Mass/Vol] Troponin I.cardiac [Mass/volume] in Serum or Plasma by Detection limit <= 0.01 ng/ 0-15 [facility] Comment on above: The Troponin units o f report have been changed to meet the Chest Pain Accreditation requirement, element EC5.M1l2. Troponin units are changed from pg/ml to ng/L. Also, the decimal is removed and results are in whole numbers. Troponin I.cardiac DL <= 0.01 ng/mL [Mass/Vol] Troponin I.cardiac [Mass/volume] in Serum or Plasma by Detection limit <= 0.01 ng/ 0-15 [facility] Comment on above: The Troponin units o f report have been changed to meet the Chest Pain Accreditation requirement, element EC5.M1l2. Troponin units are changed from pg/ml to ng/L. Also, the decimal is removed and results are in whole numbers. Troponin I.cardiac [Mass/vol ume] in Serum or Plasma by Detection limit <= 0.01 ng/mLOrdered By: Diane Smith on 11-23-2024 Troponin I.cardiac DL <= 0.01 ng/mL [Mass/Vol] 7 ng/L 0-15 [facility] Comment on above: The Troponin units o [...] [Mass/volume] in Serum or Plasma High 7-25 [facility] Urine Cultureon 11-23-2024 Bacteria identified Cx Nom (U) No Growth 2 Days PERFORMED BY: [place] [address] PATHOLOGIST LOCAL INTERMODAL TRUCK DRIVER NICK MOHR M.D. Normal [facility] Comment on above: Performed By: #### C UU, ADDONUAPLUS #### [address] Urine cultureOrdered By: Cora Layne on 11-23-2024 Bacteria identified Cx Nom (U) Urine culture [facility] Bacteria identified Cx Nom (U) No Growth 2 Days [facility] Urobilinogen Test strip (U) [Mass/Vol]Ordered By: Jr Layne on 11-23-2024 Urobilinogen (U) [Mass/Vol] Urobilinogen [Mass/volume] in Urine by Test strip Normal [facility] Urobilinogen (U) [Mass/Vol] Normal mg/dL Normal [facility] WBC Auto (Bld) [#/Vol]Ordere d By: Jr Layne on 11-23-2024 WBC (Bld) [#/Vol] Leukocytes [#/volume ] in Blood by Automated count 3.8-11.6 [facility] X-ray reportOrdered By: Dean Potter on 11-23-2024 Study report [facility] Main [place] [id number] XRay Report Signed Patient: Aislinn Wheeler MR#: [id number] : 1960 Acct:[id number] Age/Sex: 64 / F ADM Date: 5 Loc: ER Room: Type: [facility] ER Attending Dr: Copies to: Jr Layne [...] Raf Potter M.D.11/23/2024 4:55 PM Dictation Location: [place] [address] Transcribed By: [facility] 11/23/241654 Dictated By: Raf Potter MD 11/23/241651 Signed By: 11/23/24 165 [facility] Work Phone: XR chest 1V portableon 11-23 XR chest 1V portable [facility] Main [place] [id number] XRay Report Signed Patient: Aislinn Wheeler MR#: [id number] : 1960 Acct:[id number] Age/Sex: 64 / F ADM Date: 11/23/24 Loc: ER Room: Type: [facility] ER Attending Dr: Copies to: Jr Layne [...] Raf Potter M.D.11/23/2024 4:55 PM Dictation Location: [place] [address] Transcribed By: [facility] 11/23/241654 Dictated By: Raf Potter MD 11/23/241651 Signed By: 11/23/241654 Normal [facility] pH Test strip (U)Ordered By: Jr Layne on 11-23-2024 pH (U) pH of Urine by Test strip 5.0-9.0 [facility] pH of Urine by Test stripOrd ered By: Jr Layne on 11-23-2024 pH (U) 6.0 [pH] Normal 5.0-9.0 [facility] Comment on above: Order Comment: Name Collection Type:: Clean-Voided Midstream Performed By: #### C UU, ADDONUAPLUS #### [address] ECG 12-LEADon 11-22-2024 [place] [address] Electrocardiograph Report Signed Patient: AISLINN WHEELER MR#: [id number] : 1960 Acct:[id number] Age/Sex: 64 / F ADM Date: 11/21/24 Loc: [facility] Attending Dr: Ramon Enrique D.P.M. Ordering Physician: Ramon Enrique D.P.M. Date of Service: 11/21/24 Procedure(s): ECG 12 lead Accession Number(s): [id number] cc: [facility] Test Date: 2024-11-21 Pat Name: AISLINN WHEELER Department: Room: - Gender: Female [employer] Compliance Specialist: : 1960 Requested By: RAMON ENRIQUE Order Number: [id number] Amber MD: GALO MUKHERJEE M.D. Measurements Intervals [place] Rate: 57 P: 52 DE: 183 QRS: 45 QRSD: 82 T: 54 QT: 452 QTc: 441 Interpretive Statements SINUS BRADYCARDIA Otherwise normal ECG Compared to ECG 09/04/2024 13:57:55 No significant change Electronically Signed On 11-22-2024 15:11:41 EDT by GALO MUKHERJEE M.D. Dictated By: GALO MUKHERJEE Signed By: 11/22/241510 DD/ 30 TD/TT: [employer]: [facility] RadiologyChito MD - 11/22/2024 [place] [address] Electrocardiograph Report Signed Patient: AISLINN WHEELER MR#: [id number] : 1960 Acct:[id number] Age/Sex: 64 / F ADM Date: 11/21/24 Loc: PST Attending Dr: Ramon Enrique D.P.M. Ordering Physician: Ramon Enrique D.P.M. Date of Service: 11/21/24 Procedure(s): ECG 12 lead Accession Number(s): [id number] cc: [facility] Test Date: 2024-11-21 Pat Name: AISLINN WHEELER Department: Room: - Gender: Female [employer] Compliance Specialist: : 1960 Requested By: RAMON ENRIQUE Order Number: [id number] Reading MD: GALO MUKHERJEE M.D. Measurements Intervals [place] Rate: 57 P: 52 DE: 183 QRS: 45 QRSD: 82 T: 54 QT: 452 QTc: 441 Interpretive Statements SINUS BRADYCARDIA Otherwise normal ECG Compared to ECG 09/04/2024 13:57:55 No significant change Electronically Signed On 11-22-2024 15:11:41 EDT by GALO MUKHERJEE M.D. Dictated By: GALO MUKHERJEE Signed By: 11/22/241510 DD/ 30 TD/TT: [employer]: [facility] ECG 12-LEADOrdered By: Radio logist Radiology on 11-22-2024 [facility] Work Phone: ALL CBC WITH AUTO DIFFon BASOPHILS ABSOLUTE AUTO 0.1 [facility] Basophils/100 WBC (Bld) 0.6 % 0.2 - 2.0 % [facility] Eosinophils/100 WBC (Bld) 1.9 % 0.9 - 7.0 % [facility] Erythrocyte distribution width (RBC) [Ratio] 13.4 % 11.0 - 15.0 % [facility] Hematocrit (Bld) [Volume fraction] 33.8 % Low 36.0 - 48.0 % [facility] Hemoglobin (Bld) [Mass/Vol] 10.9 g/dL Low 12.0 - 16.0 g/dL [facility] IMMATURE GRANULOCYTES ABS AUTO 0.05 High [facility] Immature granulocytes/100 WBC (Bld) 0.6 % High 0.0 - 0.5 % [facility] Interpretation and review of laboratory results Abnormal [facility] LYMPHOCYTES ABSOLUTE AUTO 2.2 [facility] Lymphocytes/100 WBC (Bld) 26.3 % 20.5 - 60.0 % [facility] MCH (RBC) [Entitic mass] 26 pg Low 26.7 - 34.0 pg [facility] MCHC (RBC) [Mass/Vol] 32.2 g/dL 29.9 - 35.2 g/dL [facility] MCV (RBC) [Entitic vol] 80.7 fL Low 81.0 - 99.0 fL [facility] MONOCYTES ABSOLUTE AUTO 0.5 [facility] Monocytes/100 WBC (Bld) 5.6 % 1.7 - 12.0 % [facility] NEUTROPHILS ABSOLUTE AUTO 5.5 [facility] Neutrophils/100 WBC (Bld) 65 % 43.0 - 75.0 % [facility] Platelet mean volume (Bld) [Entitic vol] 10.7 fL 9.5 - 13.5 fL [facility] TBH EO # 0.2 [facility]H PLT 289 [facility] RBC 4.19 Low [facility] WBC 8.4 [facility] ECG 12-LEADon 11-21-2024 Radiology Study observation (narrative) [facility] HbA1c (Bld) [Mass fraction]o n 11-18-2024 Interpretation and review of laboratory results Abnormal [facility] - Hematology and Cell countson 11-18-2024 HbA1c (Bld) [Mass fraction] 9.40 % [facility] XR FOOT RT MIN 3Von 11-15-[address] [address] XRay Report Signed Patient: AISLINN WHEELER MR#: [id number] : 1960 Acct:[id number] Age/Sex: 64 / F ADM Date: 11/14/24 Loc: RAD Attending Dr: Agusto Olmstead NP Ordering Physician: Agusto Olmstead NP Date of Service: 11/14/24 Procedure(s): XR foot RT min 3V Accession Number(s): [id number] cc: Agusto Olmstead NP [place] [id number] Patient Name: AISLINN WHEELER MRN: [id number] date: 1960 Sex: F Assigned Patient Location: [facility] Current Patient Location: [facility] Accession/Order Number: [id number] Exam Date: 11/14/2024 16:41 Report Date: 11/14/2024 [...] White Jr., D.O.11/14/2024 4:45 PM Dictation Location: [place] [address] Electronically authenticated by: [id number] Y Date: 11/14/2024 16:45 Dictated By: Kyree White M.D. Signed By: 11/14/241646 DD/ 44 TD/TT: [employer]: [facility] Radiology, Radiologi MD doris - 11/14/[address] [address] XRay Report Signed Patient: AISLINN WHEELER MR#: [id number] : 1960 Acct:[id number] Age/Sex: 64 / F ADM Date: 11/14/24 Loc: [facility] Attending Dr: Agusto Olmstead NP Ordering Physician: Agusto Olmstead NP Date of Service: 11/14/24 Procedure(s): XR foot RT min 3V Accession Number(s): [id number] cc: Agusto Olmstead NP The [place] [id number] Patient Name: AISLINN WHEELER MRN: [id number] date: 1960 Sex: F Assigned Patient Location: [facility] Current Patient Location: [facility] Accession/Order Number: [id number] Exam Date: 11/14/2024 16:41 Report Date: 11/14/2024 [...] White Jr., D.O.11/14/2024 4:45 PM Dictation Location: [place] [address] Electronically authenticated by: [id number] Y Date: 11/14/2024 16:45 Dictated By: Kyree White M.D. Signed By: 11/14/24 1647 DD/ 44 TD/TT: [employer]: [facility] [employer] Radiology Study observation (narrative) [facility] [employer] XR FOOT RT MIN 3VOrdered By: Radiologist Radiology on 11-14-2024 [facility] [employer] Work Phone: Basic Metabolic Panelon 08-21 Anion gap [Moles/Vol] 13.4 mmol/L Normal 6.0-15.0 Th e [facility] Comment on above: Performed By: #### B MP #### [address] Calcium [Mass/Vol] 8.5 mg/dL Low 8.6-10.3 [facility] Comment on above: Performed By: #### B MP #### [address] Chloride [Moles/Vol] 102 mmol/L Normal 98-107 [facility] Comment on above: Performed By: #### B MP #### [address] CO2 [Moles/Vol] 27.3 mmol/L Normal 21.0-31.0 The [facility] Comment on above: Performed By: #### B MP #### [address] Creatinine [Mass/Vol] 3.08 mg/dL High 0.60-1.20 [facility] Comment on above: Performed By: #### B MP #### [address] Creatinine Clr Calc Pharmacy 13.95 Normal [facility] Comment on above: Result Comment: PERF ORMED BY: [place] [address] PATHOLOGIST LOCAL INTERMODAL TRUCK DRIVER NICK MOHR M.D. Performed By: #### B MP #### [address] Estimated GFR 16.109 mL/Min Normal [facility] Comment on above: Performed By: #### B MP #### [address] [place] [address] [place] Glucose [Mass/Vol] 151 mg/dL High 70-100 [facility] Comment on above: Result Comment: [place] Glucose Reference Range is dependent on time and content of last meal. Glucose of more than 200 mg/dL in a nonstressed, ambulatory subject supports the diagnosis of Diabetes Mellitus. ADA recommended reference range Performed By: #### B MP #### [facility] [address] Potassium [Moles/Vol] 4.7 mmol/L Normal 3.5-5.1 [facility] Comment on above: Performed By: #### B MP #### [facility] [address] Sodium [Moles/Vol] 138 mmol/L Significant change down 136-145 [facility] Comment on above: Performed By: #### B MP #### [facility] [address] Urea nitrogen [Mass/Vol] 53 mg/dL High 7-25 [facility] Comment on above: Performed By: #### B MP #### [facility] [address] Calcium [Mass/volume] in Ser um or PlasmaOrdered By: Gilmer Tai on 09-08-2024 Calcium [Mass/Vol] Calcium [Mass/volume ] in Serum or Plasma Low 8.6-10.3 [facility] Carbon dioxide, total [Moles /volume] in Serum or PlasmaOrdered By: Gilmer Tai on 09-08-2024 CO2 [Moles/Vol] Carbon dioxide, tota l [Moles/volume] in Serum or Plasma 21.0-31.0 [facility] Chloride [Moles/volume] in S ryan or PlasmaOrdered By: Gilmer Tai on 09-08-2024 Chloride [Moles/Vol] Chloride [Moles/vol ume] in Serum or Plasma 98-107 [facility] Creatinine [Mass/volume] in Serum or PlasmaOrdered By: Gilmer Tai on 09-08-2024 Creatinine [Mass/Vol] Creatinine [Mass/v olume] in Serum or Plasma High 0.60-1.20 [facility] Glucose Glucometer (BldC) [M ass/Vol]Ordered By: Gilmer Tai on 09-08-2024 Glucose [Mass/Vol] Capillary blood gluc ose measurement by glucometer (mass/volume) [facility] Comment on above: Random Glucose Refer ence Range is dependent on time and content of last meal. Glucose of more than 200 mg/dL in a nonstressed, ambulatory subject supports the diagnosis of Diabetes Mellitus. Glucose Poct Glucometerson 0 09-08-2024 Commemt1 Glu2: Cleaned Meter Normal [facility] Comment on above: Result Comment: PERF ORMED BY: [facility] [address] [place] [address] PATHOLOGIST LOCAL INTERMODAL TRUCK DRIVER NICK MOHR M.D. Performed By: #### G LULS #### Point of Care testing , Glucose [Mass/Vol] 311 mg/dL Normal [facility] Comment on above: Result Comment: [place] om Glucose Reference Range is dependent on [...] ] in Serum or Plasma High 70-100 [facility] Comment on above: ADA recommended refe rence rangeRandom Glucose Reference Range is dependent on time and content of last meal. Glucose of more than 200 mg/dL in a nonstressed, ambulatory subject supports the diagnosis of Diabetes Mellitus. No Panel InformationOrdered By: Gilmer Tai on 09-08-2024 Bedside Glucose Comment Glu2: cleaned meter [facility] Estimated GFR (CKD-EPI) 16.109 mL/Min [facility] Pharmacy Creatinine Clearance (Chem 13.95 [facility] Potassium [Moles/volume] in Serum or PlasmaOrdered By: Gilmer Tai on 09-08-2024 Potassium [Moles/Vol] Potassium [Moles/v olume] in Serum or Plasma 3.5-5.1 [facility] Serum or plasma anion gap de terminationOrdered By: Gilmer Tai on 09-08-2024 Anion gap [Moles/Vol] Serum or plasma an ion gap determination 6.0-15.0 [facility] Sodium [Moles/volume] in Ser um or PlasmaOrdered By: Gilmer Tai on 09-08-2024 Sodium [Moles/Vol] Sodium [Moles/volume ] in Serum or Plasma Significant change down 136-145 [facility] Comment on above: Delta: 132 on -0600 Urea nitrogen [Mass/volume] in Serum or PlasmaOrdered By: Gilmer Tai on 09-08-2024 Urea nitrogen [Mass/Vol] Urea nitrogen [Mass/volume] in Serum or Plasma High 7-25 [facility] Alanine aminotransferase [En zymatic activity/volume] in Serum or PlasmaOrdered By: Alejandro Vallejo on 09-07-2024 ALT [Catalytic activity/Vol] Alanine aminotransferase [Enzymatic activity/volume] in Serum or Plasma 7-52 [facility] Albumin [Mass/volume] in Ser um or Plasma by Bromocresol green (BCG) dye binding methoOrdered By: Alejandro Vallejo on 09-07-2024 Albumin BCG dye [Mass/Vol] Albumin [Mass/volume] in Serum or Plasma by Bromocresol green (BCG) dye binding metho Low 3.5-5.7 [facility] Alkaline phosphatase [Enzyma tic activity/volume] in Serum or PlasmaOrdered By: Alejandro Vallejo on 09-07-2024 ALP [Catalytic activity/Vol] Alkaline phosphatase [Enzymatic activity/volume] in Serum or Plasma 34-104 [facility] Aspartate aminotransferase [ Enzymatic activity/volume] in Serum or PlasmaOrdered By: Alejandro Vallejo on 09-07-2024 AST [Catalytic activity/Vol] Aspartate aminotransferase [Enzymatic activity/volume] in Serum or Plasma 13-39 [facility] Basophils Auto (Bld) [#/Vol] Ordered By: Alejandro Vallejo on 09-07-2024 Basophils (Bld) [#/Vol] Automated basophil count 0.0-0.2 [facility] Basophils/100 WBC Auto (Bld) Ordered By: Alejandro Vallejo on 09-07-2024 Basophils/100 WBC (Bld) Automated basophil % . [facility] Bilirubin.total [Mass/volume ] in Serum or PlasmaOrdered By: Alejandro Vallejo on 09-07-2024 Bilirubin [Mass/Vol] Bilirubin.total [Mass/volume] in Serum or Plasma Low 0.3-1.0 [facility] Complete Blood Count Auto Di ffon 09-07-2024 Basophils (Bld) [#/Vol] 0.0 10*3/uL Normal 0.0-0.2 The [facility] Comment on above: Result Comment: PERF ORMED BY: [place] [address] PATHOLOGIST LOCAL INTERMODAL TRUCK DRIVER NICK MOHR M.D. Performed By: #### C BC, CMP #### [address] Basophils/100 WBC (Bld) 0.5 % Normal . [facility] Comment on above: Performed By: #### C BC, CMP #### [address] Eosinophils (Bld) [#/Vol] 0.2 10*3/uL Normal 0.0-0.45 [facility] Comment on above: Performed By: #### C BC, CMP #### [address] Eosinophils/100 WBC (Bld) 2.9 % Normal . [facility] Comment on above: Performed By: #### C BC, CMP #### [address] Erythrocyte distribution width (RBC) [Ratio] 14.0 % Normal 11.9-15.3 [facility] Comment on above: Performed By: #### C BC, CMP #### [address] Hematocrit (Bld) [Volume fraction] 27.2 % Low 34.0-46.4 [facility] Comment on above: Performed By: #### C BC, CMP #### [address] Hemoglobin (Bld) [Mass/Vol] 9.2 g/dL Low 11.8-15.4 [facility] Comment on above: Performed By: #### C BC, CMP #### [address] Lymphocytes (Bld) [#/Vol] 2.0 10*3/uL Normal 1.00-4.8 [facility] Comment on above: Performed By: #### C BC, CMP #### [address] Lymphocytes/100 WBC (Bld) 24.8 % Normal . [facility] Comment on above: Performed By: #### C BC, CMP #### [address] MCH (RBC) [Entitic mass] 26.6 pg Normal 24.7-34.3 [facility] Comment on above: Performed By: #### C BC, CMP #### [address] MCV (RBC) [Entitic vol] 79.2 fL Low 80-100 [facility] Comment on above: Performed By: #### C BC, CMP #### [address] Mean Corpuscular HGB Conc 33.7 g/dL Normal 32.0-35.0 [facility] Comment on above: Performed By: #### C BC, CMP #### [address] Monocytes (Bld) [#/Vol] 0.5 10*3/uL Normal 0.0-0.8 [facility] Comment on above: Performed By: #### C BC, CMP #### [place] [address] [place] Monocytes/100 WBC (Bld) 6.2 % Normal . [facility] Comment on above: Performed By: #### C BC, CMP #### [facility] [address] [place] [address] [place] Neutrophils (Bld) [#/Vol] 5.4 10*3/uL Normal 1.8-7.7 [facility] Comment on above: Performed By: #### C EVELYN, CMP #### [facility] [address] Neutrophils/100 WBC (Bld) 65.6 % Normal . [facility] Comment on above: Performed By: #### C EVELYN, CMP #### [facility] [address] NRBC% 0.1 /100{WBC} Normal 0-0.5 The [facility] Comment on above: Performed By: #### C EVELYN, CMP #### [address] Platelet mean volume (Bld) [Entitic vol] 9.4 fL Normal 6.3-10.7 The [facility] Comment on above: Performed By: #### C EVELYN, CMP #### [facility] [address] [place] [address] [place] Platelets (Bld) [#/Vol] 221 10*3/uL Normal 150-450 [facility] Comment on above: Performed By: #### C EVELYN, CMP #### [facility] [address] [place] [id number] [place] RBC (Bld) [#/Vol] 3.44 10*6/uL Low 3.60-5.00 [facility] Comment on above: Performed By: #### C EVELYN, CMP #### [place] [id number] [place] WBC (Bld) [#/Vol] 8.2 10*3/uL Normal 3.8-11.6 [facility] Comment on above: Performed By: #### C EVELYN, CMP #### [place] [id number] [facility] Comprehensive Metabolic Pane krystin 09-07-2024 Albumin [Mass/Vol] 3.0 g/dL Low 3.5-5.7 [facility] Comment on above: Performed By: #### R ENAL #### [address] Albumin/Globulin [Mass ratio] 0.8 {ratio} Normal [facility] Comment on above: Performed By: #### R ENAL #### [address] ALP [Catalytic activity/Vol] 77 U/L Normal 34-104 [facility] Comment on above: Performed By: #### R ENAL #### [address] ALT [Catalytic activity/Vol] 9 U/L Normal 7-52 [facility] Comment on above: Performed By: #### R ENAL #### [address] Anion gap [Moles/Vol] 11.3 mmol/L Normal 6.0-15.0 [facility] Comment on above: Performed By: #### R ENAL #### [address] AST [Catalytic activity/Vol] 14 U/L Normal 13-39 [facility] Comment on above: Performed By: #### R ENAL #### [address] Bilirubin [Mass/Vol] 0.2 mg/dL Low 0.3-1.0 [facility] Comment on above: Performed By: #### R ENAL #### [address] Calcium [Mass/Vol] 8.3 mg/dL Low 8.6-10.3 [facility] Comment on above: Performed By: #### R ENAL #### [place] [address] [place] Chloride [Moles/Vol] 100 mmol/L Normal 98-107 [facility] Comment on above: Performed By: #### R ENAL #### [place] [address] [place] CO2 [Moles/Vol] 25.8 mmol/L Normal 21.0-31.0 The [facility] Comment on above: Performed By: #### R ENAL #### [address] Creatinine [Mass/Vol] 3.09 mg/dL High 0.60-1.20 [facility] Comment on above: Performed By: #### R ENAL #### [address] Creatinine Clr Calc Pharmacy 14.45 Normal [facility] Comment on above: Result Comment: PERF ORMED BY: [place] [address] PATHOLOGIST LOCAL INTERMODAL TRUCK DRIVER NICK MOHR M.D. Performed By: #### R ENAL #### [address] Estimated GFR 16.046 mL/Min Normal [facility] Comment on above: Performed By: #### R ENAL #### [address] Globulin (S) [Mass/Vol] 3.8 g/dL Normal [facility] Comment on above: Performed By: #### R ENAL #### [address] Glucose [Mass/Vol] 155 mg/dL High 70-100 [facility] Comment on above: Result Comment: [place] Glucose Reference Range is dependent on time and content of last meal. Glucose of more than 200 mg/dL in a nonstressed, ambulatory subject supports the diagnosis of Diabetes Mellitus. ADA recommended reference range Performed By: #### R ENAL #### [address] Potassium [Moles/Vol] 5.1 mmol/L Normal 3.5-5.1 [facility] Comment on above: Performed By: #### R ENAL #### [address] Protein [Mass/Vol] 6.8 g/dL Normal 6.4-8.9 [facility] Comment on above: Performed By: #### R ENAL #### [address] Sodium [Moles/Vol] 132 mmol/L Low 136-145 [facility] Comment on above: Performed By: #### R ENAL #### [address] Urea nitrogen [Mass/Vol] 51 mg/dL High 7-25 [facility] Comment on above: Performed By: #### R ENAL #### [address] Eosinophils Auto (Bld) [#/Vo l]Ordered By: Alejandro Vallejo on 09-07-2024 Eosinophils (Bld) [#/Vol] Automated eosinophil count 0.0-0.45 [facility] [facility] Eosinophils/100 WBC Auto (Bl d)Ordered By: Alejandro Vallejo on 09-07-2024 Eosinophils/100 WBC (Bld) Automated eosinophil % . [facility] Erythrocyte distribution wid th Auto (RBC) [Ratio]Ordered By: Alejandro Vallejo on 09-07-2024 Erythrocyte distribution width (RBC) [Ratio] Erythrocyte distribution width [Ratio] by Automated count 11.9-15.3 [facility] Globulin Calc (S) [Mass/Vol] Ordered By: Alejandro Vallejo on 09-07-2024 Globulin (S) [Mass/Vol] Serum globulin measurement by calculation (mass/volume) [facility] Glucose Poct Glucometerson 0 09-07-2024 Glucose [Mass/Vol] 195 mg/dL Normal [facility] Comment on above: Result Comment: [facility] Glucose Reference Range is dependent on time and content of last meal. Glucose of more than 200 mg/dL in a nonstressed, ambulatory subject supports the diagnosis of Diabetes Mellitus. PERFORMED BY: [place] [address] PATHOLOGIST LOCAL INTERMODAL TRUCK DRIVER NICK MOHR M.D. Performed By: #### H S TROP #### [address] Glucose [Mass/Vol] 203 mg/dL Normal [facility] Comment on above: Result Comment: [facility] Glucose Reference Range is dependent on time and content of last meal. Glucose of more than 200 mg/dL in a nonstressed, ambulatory subject supports the diagnosis of Diabetes Mellitus. PERFORMED BY: [address] [address] PATHOLOGIST LOCAL INTERMODAL TRUCK DRIVER NICK MOHR M.D. Performed By: #### G LULS #### Point of Care testing , Glucose [Mass/Vol] 153 mg/dL Normal [facility] Comment on above: Result Comment: [facility] Glucose Reference Range is dependent on time and content of last meal. Glucose of more than 200 mg/dL in a nonstressed, ambulatory subject supports the diagnosis of Diabetes Mellitus. PERFORMED BY: [address] [address] PATHOLOGIST LOCAL [employer]MODAL TRUCK DRIVER NICK MOHR M.D. Performed By: #### H S TROP #### [address] [address] [facility] Hematocrit Auto (Bld) [Volum e fraction]Ordered By: Alejandro Vallejo on 09-07-2024 Hematocrit (Bld) [Volume fraction] Hematocrit [Volume Fraction] of Blood by Automated count Low 34.0-46.4 [facility] Hemoglobin [Mass/volume] in BloodOrdered By: Alejandro Vallejo on 09-07-2024 Hemoglobin (Bld) [Mass/Vol] Hemoglobin [Mass/volume] in Blood Low 11.8-15.4 [facility] Leukocytes [#/volume] correc madhavi for nucleated erythrocytes in Blood by Automated counOrdered By: Alejandro Vallejo on 09-07-2024 WBC corrected for nucl RBC Auto (Bld) [#/Vol] Leukocytes [#/volume] corrected for nucleated erythrocytes in Blood by Automated coun 3.8-11.6 [facility] Lymphocytes Auto (Bld) [#/Vo l]Ordered By: Alejandro Vallejo on 09-07-2024 Lymphocytes (Bld) [#/Vol] Lymphocytes [#/volume] in Blood by Automated count 1.00-4.8 [facility] Lymphocytes/100 WBC Auto (Bl d)Ordered By: Alejandro Vallejo on 09-07-2024 Lymphocytes/100 WBC (Bld) Lymphocytes/100 leukocytes in Blood by Automated count . [facility] MCH Auto (RBC) [Entitic mass ]Ordered By: Alejandro Vallejo on 09-07-2024 MCH (RBC) [Entitic mass] MCH [Entitic mass] by Automated count 24.7-34.3 [facility] MCHC Auto (RBC) [Mass/Vol]Or dered By: Alejandro Vallejo on 09-07-2024 MCHC (RBC) [Mass/Vol] MCHC [Mass/volume] by Automated count 32.0-35.0 [facility] MCV Auto (RBC) [Entitic vol] Ordered By: Alejandro Vallejo on 09-07-2024 MCV (RBC) [Entitic vol] MCV [Entitic volume] by Automated count Low 80-100 [facility] Monocytes Auto (Bld) [#/Vol] Ordered By: Alejandro Vallejo on 09-07-2024 Monocytes (Bld) [#/Vol] Automated blood monocyte count 0.0-0.8 [facility] Monocytes/100 WBC Auto (Bld) Ordered By: Alejandro Vallejo on 09-07-2024 Monocytes/100 WBC (Bld) Automated monocyte % . [facility] Neutrophils Auto (Bld) [#/Vo l]Ordered By: Alejandro Vallejo on 09-07-2024 Neutrophils (Bld) [#/Vol] Neutrophils [#/volume] in Blood by Automated count 1.8-7.7 [facility] Neutrophils/100 WBC Auto (Bl d)Ordered By: Alejandro Vallejo on 09-07-2024 Neutrophils/100 WBC (Bld) Automated neutrophil % . [facility] Nucleated erythrocytes [Pres ence] in Blood by Automated countOrdered By: Alejandro Vallejo on 09-07-2024 Nucleated RBC Auto Ql (Bld) Nucleated erythrocytes [Presence] in Blood by Automated count 0-0.5 [facility] Platelet mean volume Auto (B ld) [Entitic vol]Ordered By: Alejandro Vallejo on 09-07-2024 Platelet mean volume (Bld) [Entitic vol] Platelet mean volume [Entitic volume] in Blood by Automated count 6.3-10.7 [facility] Platelets Auto (Bld) [#/Vol] Ordered By: Alejandro Vallejo on 09-07-2024 Platelets (Bld) [#/Vol] Platelets [#/volume] in Blood by Automated count 150-450 [facility] Protein [Mass/volume] in Ser um or PlasmaOrdered By: Alejandro Vallejo on 09-07-2024 Protein [Mass/Vol] Protein [Mass/volume ] in Serum or Plasma 6.4-8.9 [facility] RBC Auto (Bld) [#/Vol]Ordere d By: Alejandro Vallejo on 09-07-2024 RBC (Bld) [#/Vol] Erythrocytes [#/volu me] in Blood by Automated count Low 3.60-5.00 [facility] Serum or plasma albumin/glob ulin mass ratioOrdered By: Alejandro Vallejo on 09-07-2024 Albumin/Globulin [Mass ratio] Serum or plasma albumin/globulin mass ratio [facility] WBC Auto (Bld) [#/Vol]Ordere d By: Alejandro Vallejo on 09-07-2024 WBC (Bld) [#/Vol] Leukocytes [#/volume ] in Blood by Automated count 3.8-11.6 [facility] Complete Blood Count Auto Di ffon 09-06-2024 Basophils (Bld) [#/Vol] 0.1 10*3/uL Normal 0.0-0.2 [facility] Comment on above: Result Comment: PERF ORMED BY: [place] [address] PATHOLOGIST LOCAL [employer]MODAL TR[employer] DRIVER NICK MOHR M.D. Performed By: #### C UU ADDONUAPLUS #### [facility] [address] [place] [address] Basophils/100 WBC (Bld) 0.8 % Normal . [facility] Comment on above: Performed By: #### C UU, ADDONUAPLUS #### [facility] [address] [place] [address] [place] Eosinophils (Bld) [#/Vol] 0.2 10*3/uL Normal 0.0-0.45 [facility] Comment on above: Performed By: #### C UU, ADDONUAPLUS #### [address] Eosinophils/100 WBC (Bld) 1.3 % Normal . [facility] Comment on above: Performed By: #### C UU, ADDONUAPLUS #### [address] Erythrocyte distribution width (RBC) [Ratio] 14.1 % Normal 11.9-15.3 [facility] Comment on above: Performed By: #### C UU, ADDONUAPLUS #### [address] Hematocrit (Bld) [Volume fraction] 31.3 % Low 34.0-46.4 [facility] Comment on above: Performed By: #### C UU, ADDONUAPLUS #### [address] Hemoglobin (Bld) [Mass/Vol] 10.1 g/dL Low 11.8-15.4 [facility] Comment on above: Performed By: #### C UU, ADDONUAPLUS #### [address] Lymphocytes (Bld) [#/Vol] 2.5 10*3/uL Normal 1.00-4.8 [facility] Comment on above: Performed By: #### C UU, ADDONUAPLUS #### [address] Lymphocytes/100 WBC (Bld) 19.0 % Normal . [facility] Comment on above: Performed By: #### C UU, ADDONUAPLUS #### [address] MCH (RBC) [Entitic mass] 25.9 pg Normal 24.7-34.3 [facility] Comment on above: Performed By: #### C UU, ADDONUAPLUS #### [address] MCV (RBC) [Entitic vol] 80.1 fL Normal 80-100 [facility] Comment on above: Performed By: #### C UU, ADDONUAPLUS #### [address] Mean Corpuscular HGB Conc 32.4 g/dL Normal 32.0-35.0 [facility] Comment on above: Performed By: #### C UU, ADDONUAPLUS #### [address] Monocytes (Bld) [#/Vol] 0.6 10*3/uL Normal 0.0-0.8 [facility] Comment on above: Performed By: #### C UU, ADDONUAPLUS #### [address] Monocytes/100 WBC (Bld) 4.4 % Normal . [facility] Comment on above: Performed By: #### C UU, ADDONUAPLUS #### [address] Neutrophils (Bld) [#/Vol] 10.0 10*3/uL High 1.8-7.7 [facility] Comment on above: Performed By: #### C UU, ADDONUAPLUS #### [place] [address] [place] Neutrophils/100 WBC (Bld) 74.5 % Normal . [facility] Comment on above: Performed By: #### C UU, ADDONUAPLUS #### [place] [address] [place] NRBC% 0.0 /100{WBC} Normal 0-0.5 [facility] Comment on above: Performed By: #### C UU, ADDONUAPLUS #### [address] Platelet mean volume (Bld) [Entitic vol] 9.9 fL Normal 6.3-10.7 [facility] Comment on above: Performed By: #### C UU, ADDONUAPLUS #### [address] Platelets (Bld) [#/Vol] 299 10*3/uL Normal 150-450 [facility] Comment on above: Performed By: #### C UU, ADDONUAPLUS #### [address] RBC (Bld) [#/Vol] 3.91 10*6/uL Normal 3.60-5.00 [facility] Comment on above: Performed By: #### C UU, ADDONUAPLUS #### [address] WBC (Bld) [#/Vol] 13.4 10*3/uL High 3.8-11.6 [facility] Comment on above: Performed By: #### C UU, ADDONUAPLUS #### [address] Comprehensive Metabolic Pane krystin 09-06-2024 Albumin [Mass/Vol] 3.7 g/dL Normal 3.5-5.7 [facility] Comment on above: Performed By: #### C UU, ADDONUAPLUS #### [address] Albumin/Globulin [Mass ratio] 0.8 {ratio} Normal [facility] Comment on above: Performed By: #### C UU, ADDONUAPLUS #### [address] ALP [Catalytic activity/Vol] 91 U/L Normal 34-104 [facility] Comment on above: Performed By: #### C UU, ADDONUAPLUS #### [address] ALT [Catalytic activity/Vol] 9 U/L Normal 7-52 [facility] Comment on above: Performed By: #### C UU, ADDONUAPLUS #### [address] [address] [place] Anion gap [Moles/Vol] 11.5 mmol/L Normal 6.0-15.0 [facility] Comment on above: Performed By: #### C KATARZYNA ADDONUAPLUS #### [address] AST [Catalytic activity/Vol] 15 U/L Normal 13-39 [facility] Comment on above: Performed By: #### C KATARZYNA ADDONUAPLUS #### [address] Bilirubin [Mass/Vol] 0.2 mg/dL Low 0.3-1.0 [facility] Comment on above: Performed By: #### C MARAL COLÓNONUAPLUS #### [address] Calcium [Mass/Vol] 9.7 mg/dL Normal 8.6-10.3 [facility] Comment on above: Performed By: #### C KATARZYNA ADDONUAPLUS #### [address] Chloride [Moles/Vol] 110 mmol/L High 98-107 [facility] Comment on above: Performed By: #### C MARAL COLÓNONUAPLUS #### [address] CO2 [Moles/Vol] 16.2 mmol/L Low 21.0-31.0 [facility] Comment on above: Performed By: #### C KATARZYNA ADDONUAPLUS #### [facility] [address] [place] [address] [place] Creatinine [Mass/Vol] 2.73 mg/dL High 0.60-1.20 [facility] Comment on above: Performed By: #### C KATARZYAN ADDONUAPLUS #### [address] Creatinine Clr Calc Pharmacy 14.56 Normal [facility] Comment on above: Performed By: #### C KATARZYNA ADDONUAPLUS #### [address] Estimated GFR 18.618 mL/Min Normal [facility] Comment on above: Performed By: #### C UU, ADDONUAPLUS #### [address] Globulin (S) [Mass/Vol] 4.5 g/dL Normal [facility] Comment on above: Performed By: #### C UU, ADDONUAPLUS #### [address] Glucose [Mass/Vol] 168 mg/dL Significant change up 70-100 [facility] Comment on above: Result Comment: [facility] Glucose Reference Range is dependent on time and content of last meal. Glucose of more than 200 mg/dL in a nonstressed, ambulatory subject supports the diagnosis of Diabetes Mellitus. ADA recommended reference range Performed By: #### C UU, ADDONUAPLUS #### [address] Potassium [Moles/Vol] 5.7 mmol/L High 3.5-5.1 [facility] Comment on above: Performed By: #### C UU, ADDONUAPLUS #### [address] Protein [Mass/Vol] 8.2 g/dL Normal 6.4-8.9 [facility] Comment on above: Performed By: #### C UU, ADDONUAPLUS #### [address] Sodium [Moles/Vol] 132 mmol/L Low 136-145 [facility] Comment on above: Performed By: #### C UU, ADDONUAPLUS #### [address] Urea nitrogen [Mass/Vol] 45 mg/dL High 7-25 [facility] Comment on above: Performed By: #### C UU, ADDONUAPLUS #### [address] Glucose Poct Glucometerson 0 09-06-2024 Glucose [Mass/Vol] 264 mg/dL Normal [facility] Comment on above: Result Comment: [place] [facility] Glucose Reference Range is dependent on time and content of last meal. Glucose of more than 200 mg/dL in a nonstressed, ambulatory subject supports the diagnosis of Diabetes Mellitus. PERFORMED BY: [place] [address] PATHOLOGIST LOCAL INTERMODAL TRUCK DRIVER NICK MOHR M.D. Performed By: #### G LULS #### Point of Care testing , Commemt1 Glu2: Cleaned Meter Normal [facility] Comment on above: Result Comment: PERF ORMED BY: [place] [address] PATHOLOGIST LOCAL INTERMODAL TRUCK DRIVER NICK MOHR M.D. Performed By: #### C UU, ADDONUAPLUS #### [address] Glucose [Mass/Vol] 166 mg/dL Normal [facility] Comment on above: Result Comment: [place] [facility] Glucose Reference Range is dependent on time and content of last meal. Glucose of more than 200 mg/dL in a nonstressed, ambulatory subject supports the diagnosis of Diabetes Mellitus. Performed By: #### C UU, ADDONUAPLUS #### [address] Magnesiumon 09-06-2024 Magnesium [Mass/Vol] 1.5 mg/dL Low 1.9-2.7 [facility] Comment on above: Result Comment: PERF ORMED BY: [place] [address] PATHOLOGIST LOCAL INTERMODAL TRUCK DRIVER NICK MOHR M.D. Performed By: #### C UU, ADDONUAPLUS #### [place] [id number] [facility] Magnesium [Mass/volume] in S ryan or PlasmaOrdered By: Alejandro Vallejo on 09-06-2024 Magnesium [Mass/Vol] Magnesium [Mass/vol ume] in Serum or Plasma Low 1.9-2.7 [facility] Phosphate [Mass/volume] in S ryan or PlasmaOrdered By: Alejandro Vallejo on 09-06-2024 Phosphate [Mass/Vol] Phosphate [Mass/vol ume] in Serum or Plasma High 2.5-4.5 [facility] Phosphoruson 09-06-2024 Phosphate [Mass/Vol] 5.4 mg/dL High 2.5-4.5 [facility] Comment on above: Performed By: #### C UU, ADDONUAPLUS #### [address] US renal BIon 09-06-2024 US renal BI [facility] Main [place] [address] [place] [address] Ultrasound Report Signed Patient: Aislinn Wheeler MR#: [id number] [birth year] : 1960 Acct:[id number] Age/Sex: 64 / F ADM Date: 09/05/24 Loc: Room: [address] [place] [address] Type: ADM IN Attending Dr: Gilmer Tai MD Ordering Provider: Ashley Diaz APRN Date of Service: 09/06/24 US/US renal BI: ANATOLIY Copies to: MD Ashley Love, ASHVIN Bilateral Renal Ultrasound HISTORY: Acute kidney injury [...] Jori Ruiz M.D.09/06/2024 9:48 PM Dictation Location: [place] [address] Tech: Griselda Vital Transcribed By: AMEE 09/06/[id number] Dictated By: Jori Ruiz DO 09/06/242145 Signed By: 09/06/242147 Normal [facility] Alanine aminotransferase [En zymatic activity/volume] in Serum or PlasmaOrdered By: Yessica Barros on 09-05-2024 ALT [Catalytic activity/Vol] Alanine aminotransferase [Enzymatic activity/volume] in Serum or Plasma 7-52 [facility] Albumin [Mass/volume] in Ser um or Plasma by Bromocresol green (BCG) dye binding methoOrdered By: Yessica Barros on 09-05-2024 Albumin BCG dye [Mass/Vol] Albumin [Mass/volume] in Serum or Plasma by Bromocresol green (BCG) dye binding metho Low 3.5-5.7 [facility] Alkaline phosphatase [Enzyma tic activity/volume] in Serum or PlasmaOrdered By: Yessica Barros on 09-05-2024 ALP [Catalytic activity/Vol] Alkaline phosphatase [Enzymatic activity/volume] in Serum or Plasma 34-104 [facility] Appearance of UrineOrdered B y: Yessica Barros on 09-05-2024 Appearance (U) Urine appearance Abnormal Clear [facility] Aspartate aminotransferase [ Enzymatic activity/volume] in Serum or PlasmaOrdered By: Yessica Barros on 09-05-2024 AST [Catalytic activity/Vol] Aspartate aminotransferase [Enzymatic activity/volume] in Serum or Plasma 13-39 [facility] Bacteria [Presence] in Urine by AutomatedOrdered By: Yessica Barros on 09-05-2024 Bacteria Auto Ql (U) Bacteria [Presence] in Urine by Automated High None Seen [facility] Basophils Auto (Bld) [#/Vol] Ordered By: Yessica Barros on 09-05-2024 Basophils (Bld) [#/Vol] Automated basophil count 0.0-0.2 [facility] Basophils/100 WBC Auto (Bld) Ordered By: Yessica Barros on 09-05-2024 Basophils/100 WBC (Bld) Automated basophil % . [facility] Bilirubin Test strip Ql (U)O rdered By: Yessica Barros on 09-05-2024 Bilirubin Ql (U) Bilirubin.total [Presence] in Urine by Test strip Negative [facility] Bilirubin.total [Mass/volume ] in Serum or PlasmaOrdered By: Yessica Barros on 09-05-2024 Bilirubin [Mass/Vol] Bilirubin.total [Mass/volume] in Serum or Plasma Low 0.3-1.0 [facility] Calcium [Mass/volume] in Ser um or PlasmaOrdered By: Yessica Barros on 09-05-2024 Calcium [Mass/Vol] Calcium [Mass/volume ] in Serum or Plasma Low 8.6-10.3 [facility] Carbon dioxide, total [Moles /volume] in Serum or PlasmaOrdered By: Yessica Barros on 09-05-2024 CO2 [Moles/Vol] Carbon dioxide, tota l [Moles/volume] in Serum or Plasma Low 21.0-31.0 [facility] Chloride [Moles/volume] in S rayn or PlasmaOrdered By: Yessica Barros on 09-05-2024 Chloride [Moles/Vol] Chloride [Moles/vol ume] in Serum or Plasma High 98-107 [facility] Chloride [Moles/volume] in U rineOrdered By: Gilmer Tai on 09-05-2024 Chloride (U) [Moles/Vol] Chloride [Moles/volume] in Urine [facility] Comment on above: No reference range e stablished Chloride, Urine (Random)on 0 09-05-2024 Chloride, Urine (Random) 54 mmol/L Normal [facility] Comment on above: Order Comment: Comme nt addon admission urine Result Comment: No r eference range established PERFORMED BY: [place] [address] PATHOLOGIST LOCAL [employer]MODAL TR[employer] DRIVER NICK MOHR M.D. Performed By: #### R ENAL #### [address] Color Auto (U)Ordered By: Rodriguez Barros on 09-05-2024 Color (U) Color of Urine by Auto Abnormal Yellow Fi [facility] Complete Blood Count Auto Di ffon 09-05-2024 Basophils (Bld) [#/Vol] 0.1 10*3/uL Normal 0.0-0.2 [facility] Comment on above: Result Comment: PERF ORMED BY: [place] [address] PATHOLOGIST LOCAL INTERMODAL TR[employer] DRIVER NICK MOHR M.D. Performed By: #### C UU, ADDONUAPLUS #### [address] Basophils/100 WBC (Bld) 1.4 % Normal . [facility] Comment on above: Performed By: #### C UU, ADDONUAPLUS #### [place] [address] [place] Eosinophils (Bld) [#/Vol] 0.2 10*3/uL Normal 0.0-0.45 [facility] Comment on above: Performed By: #### C UU, ADDONUAPLUS #### [address] Eosinophils/100 WBC (Bld) 2.2 % Normal . [facility] Comment on above: Performed By: #### C UU, ADDONUAPLUS #### [address] Erythrocyte distribution width (RBC) [Ratio] 14.4 % Normal 11.9-15.3 [facility] Comment on above: Performed By: #### C UU, ADDONUAPLUS #### [address] Hematocrit (Bld) [Volume fraction] 30.3 % Low 34.0-46.4 [facility] Comment on above: Performed By: #### C UU, ADDONUAPLUS #### [place] [address] [place] Hemoglobin (Bld) [Mass/Vol] 10.0 g/dL Low 11.8-15.4 [facility] Comment on above: Performed By: #### C UU, ADDONUAPLUS #### [place] [address] [place] Lymphocytes (Bld) [#/Vol] 2.1 10*3/uL Normal 1.00-4.8 [facility] Comment on above: Performed By: #### C UU, ADDONUAPLUS #### [address] Lymphocytes/100 WBC (Bld) 25.0 % Normal . [facility] Comment on above: Performed By: #### C UU, ADDONUAPLUS #### [address] MCH (RBC) [Entitic mass] 26.2 pg Normal 24.7-34.3 [facility] Comment on above: Performed By: #### C UU, ADDONUAPLUS #### [address] MCV (RBC) [Entitic vol] 79.6 fL Low 80-100 [facility] Comment on above: Performed By: #### C UU, ADDONUAPLUS #### [address] Mean Corpuscular HGB Conc 32.9 g/dL Normal 32.0-35.0 [facility] Comment on above: Performed By: #### C UU, ADDONUAPLUS #### [address] Monocytes (Bld) [#/Vol] 0.5 10*3/uL Normal 0.0-0.8 [facility] Comment on above: Performed By: #### C UU, ADDONUAPLUS #### [address] Monocytes/100 WBC (Bld) 17.62 % Normal 0.00-20.00 [facility] Comment on above: Performed By: #### C UU, ADDONUAPLUS #### [address] Monocytes/100 WBC (Bld) 5.8 % Normal . [facility] Comment on above: Performed By: #### C UU, ADDONUAPLUS #### [address] Neutrophils (Bld) [#/Vol] 5.5 10*3/uL Normal 1.8-7.7 [facility] Comment on above: Performed By: #### C URenate, ADDONUAPLUS #### [address] Neutrophils/100 WBC (Bld) 65.6 % Normal . [facility] Comment on above: Performed By: #### C URenate, ADDONUAPLUS #### [address] NRBC% 0.1 /100{WBC} Normal 0-0.5 [facility] Comment on above: Performed By: #### C URenate, ADDONUAPLUS #### [address] Platelet mean volume (Bld) [Entitic vol] 9.1 fL Normal 6.3-10.7 [facility] Comment on above: Performed By: #### C URenate, ADDONUAPLUS #### [address] Platelets (Bld) [#/Vol] 254 10*3/uL Normal 150-450 [facility] Comment on above: Performed By: #### C URenate, ADDONUAPLUS #### [address] RBC (Bld) [#/Vol] 3.81 10*6/uL Normal 3.60-5.00 [facility] Comment on above: Performed By: #### C UU, ADDONUAPLUS #### [address] WBC (Bld) [#/Vol] 8.4 10*3/uL Normal 3.8-11.6 [facility] Comment on above: Performed By: #### C UU, ADDONUAPLUS #### [address] Comprehensive Metabolic Pane krystin 09-05-2024 Albumin [Mass/Vol] 3.3 g/dL Low 3.5-5.7 [facility] Comment on above: Performed By: #### C UU, ADDONUAPLUS #### [facility] [address] Albumin/Globulin [Mass ratio] 0.8 {ratio} Normal [facility] Comment on above: Performed By: #### C UU, ADDONUAPLUS #### [facility] [address] [place] [address] [place] ALP [Catalytic activity/Vol] 84 U/L Normal 34-104 [facility] Comment on above: Performed By: #### C UU, ADDONUAPLUS #### [facility] [address] ALT [Catalytic activity/Vol] 10 U/L Normal 7-52 [facility] Comment on above: Performed By: #### C UU, ADDONUAPLUS #### [facility] [address] Anion gap [Moles/Vol] 12.0 mmol/L Normal 6.0-15.0 [facility] Comment on above: Performed By: #### C UU, ADDONUAPLUS #### [address] AST [Catalytic activity/Vol] 14 U/L Normal 13-39 [facility] Comment on above: Performed By: #### C UU, ADDONUAPLUS #### [place] [address] [place] Bilirubin [Mass/Vol] 0.2 mg/dL Low 0.3-1.0 [facility] Comment on above: Performed By: #### C UU, ADDONUAPLUS #### [facility] [address] [place] [address] [place] Calcium [Mass/Vol] 8.4 mg/dL Low 8.6-10.3 [facility] Comment on above: Performed By: #### C UU, ADDONUAPLUS #### [facility] [address] [place] [address] [place] Chloride [Moles/Vol] 109 mmol/L High 98-107 [facility] Comment on above: Performed By: #### C UU, ADDONUAPLUS #### [address] CO2 [Moles/Vol] 18.7 mmol/L Low 21.0-31.0 [facility] Comment on above: Performed By: #### C UU, ADDONUAPLUS #### [address] Creatinine [Mass/Vol] 2.48 mg/dL High 0.60-1.20 [facility] Comment on above: Performed By: #### C UU, ADDONUAPLUS #### [address] Creatinine Clr Calc Pharmacy 18.03 Normal [facility] Comment on above: Result Comment: PERF ORMED BY: [place] [address] PATHOLOGIST LOCAL INTERMODAL TRUCK DRIVER NICK MOHR M.D. Performed By: #### C UU, ADDONUAPLUS #### [address] Estimated GFR 20.892 mL/Min Normal [facility] Comment on above: Performed By: #### C UU, ADDONUAPLUS #### [address] Globulin (S) [Mass/Vol] 4.3 g/dL Normal [facility] Comment on above: Performed By: #### C UU, ADDONUAPLUS #### [address] Glucose [Mass/Vol] 296 mg/dL High 70-100 [facility] Comment on above: Result Comment: [place] Glucose Reference Range is dependent on time and content of last meal. Glucose of more than 200 mg/dL in a nonstressed, ambulatory subject supports the diagnosis of Diabetes Mellitus. ADA recommended reference range Performed By: #### C UU, ADDONUAPLUS #### [address] Potassium [Moles/Vol] 5.7 mmol/L High 3.5-5.1 [facility] Comment on above: Performed By: #### C UU, ADDONUAPLUS #### [address] Protein [Mass/Vol] 7.6 g/dL Normal 6.4-8.9 [facility] Comment on above: Performed By: #### C UU, ADDONUAPLUS #### [address] Sodium [Moles/Vol] 134 mmol/L Low 136-145 [facility] Comment on above: Performed By: #### C UU, ADDONUAPLUS #### [address] Urea nitrogen [Mass/Vol] 40 mg/dL High 7-25 [facility] Comment on above: Performed By: #### C UU, ADDONUAPLUS #### [address] Creatinine [Mass/volume] in Serum or PlasmaOrdered By: Yessica Barros on 09-05-2024 Creatinine [Mass/Vol] Creatinine [Mass/v olume] in Serum or Plasma High 0.60-1.20 [facility] Creatinine [Mass/volume] in UrineOrdered By: Gilmer Tai on 09-05-2024 Creatinine (U) [Mass/Vol] Creatinine [Mass/volume] in Urine [facility] Comment on above: No reference range e stablished Creatinine, Urine (Random)on 09-05-2024 Creatinine, Urine (Random) 32.00 mg/dL Normal [facility] Comment on above: Order Comment: Comme nt addon admission urine Result Comment: No r eference range established Performed By: #### R ENAL #### [place] [address] [place] Dipstick and Microscopicon 0 09-05-2024 Appearance (U) Cloudy Critically abnormal Clear [facility] Comment on above: Order Comment: Name Collection Type:: Clean-Voided Midstream Performed By: #### R ENAL #### [facility] [address] [place] [address] [place] Bacteria,Urine 4+ High None Seen [facility] Comment on above: Order Comment: Name Collection Type:: Clean-Voided Midstream Performed By: #### R ENAL #### [place] [address] [place] Bilirubin,Urine Negative Normal Negative [facility] Comment on above: Order Comment: Name Collection Type:: Clean-Voided Midstream Performed By: #### R ENAL #### [place] [address] [place] Color (U) Dark-Yellow Critically abnormal Yellow [facility] Comment on above: Order Comment: Name Collection Type:: Clean-Voided Midstream Performed By: #### R ENAL #### [place] [address] [place] Glucose Ql (U) 300 mg/dL High Normal [facility] Comment on above: Order Comment: Name Collection Type:: Clean-Voided Midstream Performed By: #### R ENAL #### [place] [address] [place] Hyaline Casts,Urine 0 [LPF] Normal 0-8 [facility] Comment on above: Order Comment: Name Collection Type:: Clean-Voided Midstream Performed By: #### R ENAL #### [place] [address] [place] Ketones Ql (U) Negative Normal Negative [facility] Comment on above: Order Comment: Name Collection Type:: Clean-Voided Midstream Performed By: #### R ENAL #### [place] [address] [place] Leukocyte esterase Test strip Ql (U) 4+ High Negative [facility] Comment on above: Order Comment: Name Collection Type:: Clean-Voided Midstream Performed By: #### R ENAL #### [place] [address] [place] Mucus,Urine Rare Normal [facility] Comment on above: Order Comment: Name Collection Type:: Clean-Voided Midstream Result Comment: PERF ORMED BY: [place] [address] PATHOLOGIST LOCAL INTERMODAL TRUCK DRIVER NICK MOHR M.D. Performed By: #### R ENAL #### [place] [address] [place] Nitrite,Urine Positive High Negative [facility] Comment on above: Order Comment: Name Collection Type:: Clean-Voided Midstream Performed By: #### R ENAL #### [place] [address] [place] Occult Blood,Urine 1+ High Negative [facility] Comment on above: Order Comment: Name Collection Type:: Clean-Voided Midstream Result Comment: PERF ORMED BY: [place] [address] PATHOLOGIST LOCAL INTERMODAL TRUCK DRIVER NICK MOHR M.D. Performed By: #### R ENAL #### [place] [address] [place] pH (U) 6.0 [pH] Normal 5.0-9.0 [facility] Comment on above: Order Comment: Name Collection Type:: Clean-Voided Midstream Performed By: #### R ENAL #### [place] [address] [place] Protein (U) [Mass/Vol] 70 mg/dL High Negative [facility] Comment on above: Order Comment: Name Collection Type:: Clean-Voided Midstream Performed By: #### R ENAL #### [place] [address] [place] RBC,Urine 3 [HPF] Normal 0-4 [facility] Comment on above: Order Comment: Name Collection Type:: Clean-Voided Midstream Performed By: #### R ENAL #### [place] [address] [place] Specificy [place],Urine 1.007 Normal 1.001-1.030 [facility] Comment on above: Order Comment: Name Collection Type:: Clean-Voided Midstream Performed By: #### R ENAL #### [facility] [address] [place] [address] Squamous Epithelial Cell,Urine 1 [HPF] Normal 0-2 [facility] Comment on above: Order Comment: Name Collection Type:: Clean-Voided Midstream Performed By: #### R ENAL #### [facility] [address] [place] [address] Urobilinogen,Urine Normal Normal Normal [facility] Comment on above: Order Comment: Name Collection Type:: Clean-Voided Midstream Performed By: #### R ENAL #### [facility] [address] [place] [address] WBC CLUMP, Urine Many High None Seen [facility] Comment on above: Order Comment: Name Collection Type:: Clean-Voided Midstream Performed By: #### R ENAL #### [facility] [address] [place] [address] WBC,Urine Innumerable High 0-4 [facility] Comment on above: Order Comment: Name Collection Type:: Clean-Voided Midstream Performed By: #### R ENAL #### [facility] [address] [place] [address] Eosinophils Auto (Bld) [#/Vo l]Ordered By: Yessica Barros on 09-05-2024 Eosinophils (Bld) [#/Vol] Automated eosinophil count 0.0-0.45 [facility] Eosinophils/100 WBC Auto (Bl d)Ordered By: Yessica Barros on 09-05-2024 Eosinophils/100 WBC (Bld) Automated eosinophil % . [facility] Epithelial cells.squamous [# /area] in Urine sediment by Automated countOrdered By: Yessica Barros on 09-05-2024 Epithelial cells.squamous Auto (Urine sed) [#/Area] Epithelial cells.squamous [#/area] in Urine sediment by Automated count 0-2 [facility] Erythrocyte distribution wid th Auto (RBC) [Ratio]Ordered By: Yessica Barros on 01-16-2025 Erythrocyte distribution width (RBC) [Ratio] Erythrocyte distribution width [Ratio] by Automated count 11.9-15.3 [facility] Erythrocytes [#/area] in Uri ne sediment by Automated countOrdered By: Yessica Barros on 09-05-2024 RBC Auto (Urine sed) [#/Area] Erythrocytes [#/area] in Urine sediment by Automated count 0-4 [facility] Globulin Calc (S) [Mass/Vol] Ordered By: Yessica Barros on 09-05-2024 Globulin (S) [Mass/Vol] Serum globulin measurement by calculation (mass/volume) [facility] Glucose Glucometer (BldC) [M ass/Vol]Ordered By: Alejandro Vallejo on 09-05-2024 Glucose [Mass/Vol] Capillary blood gluc ose measurement by glucometer (mass/volume) [facility] Comment on above: Random Glucose Refer ence Range is dependent on time and content of last meal. Glucose of more than 200 mg/dL in a nonstressed, ambulatory subject supports the diagnosis of Diabetes Mellitus. Glucose Poct Glucometerson 0 09-05-2024 Glucose [Mass/Vol] 124 mg/dL Normal [facility] Comment on above: Result Comment: [place] om Glucose Reference Range is dependent on time and content of last meal. Glucose of more than 200 mg/dL in a nonstressed, ambulatory subject supports the diagnosis of Diabetes Mellitus. PERFORMED BY: [place] [address] PATHOLOGIST LOCAL INTERMODAL TRUCK DRIVER NICK MOHR M.D. Performed By: #### H S TROP #### [address] Glucose [Mass/volume] in Ser um or PlasmaOrdered By: Yessica Barros on 09-05-2024 Glucose [Mass/Vol] Glucose [Mass/volume ] in Serum or Plasma High 70-100 [facility] Comment on above: ADA recommended refe rence [...] in Urine by Test strip High Normal [facility] Hematocrit Auto (Bld) [Volum e fraction]Ordered By: Yessica Barros on 09-05-2024 Hematocrit (Bld) [Volume fraction] Hematocrit [Volume Fraction] of Blood by Automated count Low 34.0-46.4 [facility] Hemoglobin Test strip Ql (U) Ordered By: Yessica Barros on 09-05-2024 Hemoglobin Ql (U) Hemoglobin [Presence ] in Urine by Test strip High Negative [facility] Hemoglobin [Mass/volume] in BloodOrdered By: Yessica Barros on 09-05-2024 Hemoglobin (Bld) [Mass/Vol] Hemoglobin [Mass/volume] in Blood Low 11.8-15.4 [facility] Hyaline casts [#/area] in Ur ine sediment by Automated countOrdered By: Yessica Barros on 09-05-2024 Hyaline casts Auto (Urine sed) [#/Area] Hyaline casts [#/area] in Urine sediment by Automated count 0-8 [facility] Ketones Test strip Ql (U)Ord ered By: Yessica Barros on 09-05-2024 Ketones Ql (U) Ketones [Presence] i n Urine by Test strip Negative [facility] Leukocyte clumps [Presence] in Urine by AutomatedOrdered By: Yessica Barros on 09-05-2024 Leukocyte clumps Auto Ql (U) Leukocyte clumps [Presence] in Urine by Automated High None Seen [facility] Leukocyte esterase [Presence ] in Urine by Test stripOrdered By: Yessica Barros on 09-05-2024 Leukocyte esterase Test strip Ql (U) Leukocyte esterase [Presence] in Urine by Test strip High Negative [facility] Leukocytes [#/area] in Urine sediment by Automated countOrdered By: Yessica Barros on 09-05-2024 WBC Auto (Urine sed) [#/Area] Leukocytes [#/area] in Urine sediment by Automated count High 0-4 [facility] Leukocytes [#/volume] correc madhavi for nucleated erythrocytes in Blood by Automated counOrdered By: Yessica Barros on 09-05-2024 WBC corrected for nucl RBC Auto (Bld) [#/Vol] Leukocytes [#/volume] corrected for nucleated erythrocytes in Blood by Automated coun 3.8-11.6 [facility] Lymphocytes Auto (Bld) [#/Vo l]Ordered By: Yessica Barros on 09-05-2024 Lymphocytes (Bld) [#/Vol] Lymphocytes [#/volume] in Blood by Automated count 1.00-4.8 [facility] Lymphocytes/100 WBC Auto (Bl d)Ordered By: Yessica Barros on 09-05-2024 Lymphocytes/100 WBC (Bld) Lymphocytes/100 leukocytes in Blood by Automated count . [facility] MCH Auto (RBC) [Entitic mass ]Ordered By: Yessica Barros on 09-05-2024 MCH (RBC) [Entitic mass] MCH [Entitic mass] by Automated count 24.7-34.3 [facility] MCHC Auto (RBC) [Mass/Vol]Or dered By: Yessica Barros on 09-05-2024 MCHC (RBC) [Mass/Vol] MCHC [Mass/volume] by Automated count 32.0-35.0 [facility] MCV Auto (RBC) [Entitic vol] Ordered By: Yessica Barros on 09-05-2024 MCV (RBC) [Entitic vol] MCV [Entitic volume] by Automated count Low 80-100 [facility] Monocyte distribution width [Entitic volume] in Blood by AutomatedOrdered By: Yessica Barros on 09-05-2024 Monocyte distribution width Auto (Bld) [Entitic vol] Monocyte distribution width [Entitic volume] in Blood by Automated 0.00-20.00 [facility] Monocytes Auto (Bld) [#/Vol] Ordered By: Yessica Barros on 09-05-2024 Monocytes (Bld) [#/Vol] Automated blood monocyte count 0.0-0.8 [facility] Monocytes/100 WBC Auto (Bld) Ordered By: Yessica Barros on 09-05-2024 Monocytes/100 WBC (Bld) Automated monocyte % . [facility] Mucus [Presence] in Urine by AutomatedOrdered By: Yessica Barros on 09-05-2024 Mucus Auto Ql (U) Mucus [Presence] in Urine by Automated [facility] Neutrophils Auto (Bld) [#/Vo l]Ordered By: Yessica Barros on 09-05-2024 Neutrophils (Bld) [#/Vol] Neutrophils [#/volume] in Blood by Automated count 1.8-7.7 [facility] Neutrophils/100 WBC Auto (Bl d)Ordered By: Yessica Barros on 09-05-2024 Neutrophils/100 WBC (Bld) Automated neutrophil % . [facility] Nitrite Test strip Ql (U)Ord ered By: Yessica Barros on 09-05-2024 Nitrite Ql (U) Nitrite [Presence] i n Urine by Test strip High Negative [facility] No Panel InformationOrdered By: Gilmer Tai on 09-05-2024 Urine Osmolality 245 mosm Low 250-900 [facility] No Panel InformationOrdered By: Yessica Barros on 09-05-2024 Estimated GFR (CKD-EPI) 20.892 mL/Min [facility] Pharmacy Creatinine Clearance (Chem 18.03 [facility] Nucleated erythrocytes [Pres ence] in Blood by Automated countOrdered By: Yessica Barros on 09-05-2024 Nucleated RBC Auto Ql (Bld) Nucleated erythrocytes [Presence] in Blood by Automated count 0-0.5 [facility] Osmolality, Urineon 09-05-19 25 Osmolality, Urine 245 mosm Low 250-900 [facility] Comment on above: Order Comment: Comme nt addon admission urine Result Comment: PERF ORMED BY: [place] [address] PATHOLOGIST LOCAL INTERMODAL TRUCK DRIVER NICK MOHR M.D. Performed By: #### R ENAL #### [address] Platelet mean volume Auto (B ld) [Entitic vol]Ordered By: Yessica Barros on 09-05-2024 Platelet mean volume (Bld) [Entitic vol] Platelet mean volume [Entitic volume] in Blood by Automated count 6.3-10.7 [facility] Platelets Auto (Bld) [#/Vol] Ordered By: Yessica Barros on 09-05-2024 Platelets (Bld) [#/Vol] Platelets [#/volume] in Blood by Automated count 150-450 [facility] Potassium [Moles/volume] in Serum or PlasmaOrdered By: Yessica Barros on 09-05-2024 Potassium [Moles/Vol] Potassium [Moles/v olume] in Serum or Plasma High 3.5-5.1 [facility] Potassium [Moles/volume] in UrineOrdered By: Gilmer Tai on 09-05-2024 Potassium (U) [Moles/Vol] Potassium [Moles/volume] in Urine [facility] Comment on above: No reference range e stablished Potassium, Urine (Random)on 09-05-2024 Potassium, Urine (Random) 19.8 mmol/L Normal [facility] Comment on above: Order Comment: Comme nt addon admission urine Result Comment: No r eference range established Performed By: #### R ENAL #### [address] Protein Test strip (U) [Mass /Vol]Ordered By: Yessica Barros on 09-05-2024 Protein (U) [Mass/Vol] Protein [Mass/volume] in Urine by Test strip High Negative [facility] Protein [Mass/volume] in Ser um or PlasmaOrdered By: Yessica Barros on 09-05-2024 Protein [Mass/Vol] Protein [Mass/volume ] in Serum or Plasma 6.4-8.9 [facility] RBC Auto (Bld) [#/Vol]Ordere d By: Yessica Barros on 09-05-2024 RBC (Bld) [#/Vol] Erythrocytes [#/volu me] in Blood by Automated count 3.60-5.00 [facility] Serum or plasma albumin/glob ulin mass ratioOrdered By: Yessica Barros on 09-05-2024 Albumin/Globulin [Mass ratio] Serum or plasma albumin/globulin mass ratio [facility] Serum or plasma anion gap de terminationOrdered By: Yessica Barros on 09-05-2024 Anion gap [Moles/Vol] Serum or plasma an ion gap determination 6.0-15.0 [facility] Sodium [Moles/volume] in Ser um or PlasmaOrdered By: Yessica Barros on 09-05-2024 Sodium [Moles/Vol] Sodium [Moles/volume ] in Serum or Plasma Low 136-145 [facility] Sodium [Moles/volume] in Uri neOrdered By: Gilmer Tai on 09-05-2024 Sodium (U) [Moles/Vol] Sodium [Moles/volume] in Urine [facility] Comment on above: No reference range e stablished Sodium, Urine (Random)on Sodium (U) [Moles/Vol] 53 mmol/L Normal [facility] Comment on above: Order Comment: Commjennifer nt addon admission urine Result Comment: No r eference range established Performed By: #### R ENAL #### [address] Specific gravity Test strip (U) [Rel density]Ordered By: Yessica Barros on 09-05-2024 Specific gravity (U) [Rel density] Specific gravity of Urine by Test strip 1.001-1.030 [facility] Urea nitrogen [Mass/volume] in Serum or PlasmaOrdered By: Yessica Barros on 09-05-2024 Urea nitrogen [Mass/Vol] Urea nitrogen [Mass/volume] in Serum or Plasma High 7-25 [facility] Urine Cultureon 09-05-2024 Bacteria identified Cx Nom (U) ORGANISM: Escherichia coli (O:ESCCOL) [place] Count >100,000 Aerobic LOCO Charge (NMIC56) SUSCEPTIBILITY [...] RESISTANT TO ALL B-LACTAM DRUGS. PERFORMED BY: [place] [address] PATHOLOGIST LOCAL INTERMODAL TRUCK DRIVER NICK MOHR M.D. Normal [facility] Comment on above: Performed By: #### R ENAL #### [address] Urine cultureOrdered By: Shoaib Barros on 09-05-2024 Bacteria identified Cx Nom (U) Escherichia coli Abnormal [facility] Bacteria identified Cx Nom (U) Escherichia coli Abnormal [facility] Urobilinogen Test strip (U) [Mass/Vol]Ordered By: Yessica Barros on 09-05-2024 Urobilinogen (U) [Mass/Vol] Urobilinogen [Mass/volume] in Urine by Test strip Normal [facility] WBC Auto (Bld) [#/Vol]Ordere d By: Yessica Barros on 09-05-2024 WBC (Bld) [#/Vol] Leukocytes [#/volume ] in Blood by Automated count 3.8-11.6 [facility] pH Test strip (U)Ordered By: Yessica Barros on 09-05-2024 pH (U) pH of Urine by Test strip 5.0-9.0 [facility] Erythrocyte distribution wid th Auto (RBC) [Ratio]on 08-28-2024 Erythrocyte distribution width (RBC) [Ratio] Erythrocyte distribution width [Ratio] by Automated count 11.0-15.0 [facility] Estimated glomerular filtrat ion rate (GFR) non- Americanon 08-28-2024 GFR/1.73 sq M.predicted among non-blacks MDRD (S/P/Bld) [Vol rate/Area] Estimated glomerular filtration rate (GFR) non- Low >=60 mL/min/1.73 m 2 [facility] CBC WITH PLATELET NO DI FFERENTIALon 08-28-2024 Erythrocyte distribution width (RBC) [Ratio] 13.6 % 11.0 - 15.0 % [facility] Hematocrit (Bld) [Volume fraction] 30.8 % Low 36.0 - 48.0 % [facility] Hemoglobin (Bld) [Mass/Vol] 9.8 g/dL Low 12.0 - 16.0 g/dL [facility] Interpretation and review of laboratory results Abnormal [facility] MCH (RBC) [Entitic mass] 26.3 pg Low 26.7 - 34.0 pg [facility] MCHC (RBC) [Mass/Vol] 31.8 g/dL 29.9 - 35.2 g/dL [facility] MCV (RBC) [Entitic vol] 82.6 fL 81.0 - 99.0 fL [facility] Platelet mean volume (Bld) [Entitic vol] 11.3 fL 9.5 - 13.5 fL [facility] TBH PLT 152 [facility] RBC 3.73 Low [facility] WBC 8.5 [facility] Hematocrit Auto (Bld) [Volum e fraction]on 08-28-2024 Hematocrit (Bld) [Volume fraction] Hematocrit [Volume Fraction] of Blood by Automated count Low 36.0-48.0 [facility] Hemoglobin [Mass/volume] in Bloodon 08-28-2024 Hemoglobin (Bld) [Mass/Vol] Hemoglobin [Mass/volume] in Blood Low 12.0-16.0 [facility] Iron binding capacity [Mass/ volume] in Serum or Plasmaon 08-28-2024 Iron binding capacity [Mass/Vol] Iron binding capacity [Mass/volume] in Serum or Plasma 250.0-450.0 [facility] Iron saturation [Mass Fracti on] in Serum or Plasmaon 08-28-2024 Iron saturation [Mass fraction] Iron saturation [Mass Fraction] in Serum or Plasma [facility] Laboratory - Chemistry and C hemistry - challengeon 08-28-2024 Albumin [Mass/Vol] 2.8 g/dL Low 3.4-5.0 [facility] Calcium [Mass/Vol] 8.4 mg/dL Low 8.5-10.1 [facility] Chloride [Moles/Vol] 104 mmol/L 98-107 [facility] CO2 [Moles/Vol] 20.9 mmol/L Low 21.0-32.0 [facility] Cobalamin (Vitamin B12) [Mass/Vol] 302 pg/mL 232-1245 [facility] Comment on above: Performed at: [address] [id number] Director: Chris Luna PhD, Phone: [phone] Creatinine [Mass/Vol] 2.71 mg/dL High 0.55-1.02 [facility] Ferritin [Mass/Vol] 403.0 ng/mL High 8.0-252.0 [facility] GFR/1.73 sq M.predicted MDRD (S/P/Bld) [Vol rate/Area] 21 mL/min/{1.73_m2} Low >=60 mL/min/1.73 m 2 [facility] Glucose [Mass/Vol] 198 mg/dL High 74-106 [facility] Iron [Mass/Vol] 39.0 ug/dL Low 50.0-170.0 [facility] Magnesium [Mass/Vol] 1.6 mg/dL Low 1.8-2.4 [facility] Potassium [Moles/Vol] 5.8 mmol/L High 3.5-5.1 [facility] Sodium [Moles/Vol] 135 mmol/L Low 136-145 [facility] Urate [Mass/Vol] 5.5 mg/dL 2.6-6.0 [facility] Urea nitrogen [Mass/Vol] 45.0 mg/dL High 7.0-18.0 [facility] Urea nitrogen/Creatinine [Mass ratio] 16.6 mg/mg [facility] Bilirubin Ql (U) Negative NEGATIVE [facility] Glucose (U) [Mass/Vol] 100 mg/dL Abnormal NEGATIVE [facility] Ketones Ql (U) Negative NEGATIVE [facility] pH (U) 6.0 [pH] 5.0-9.0 [facility] Specific gravity (U) [Rel density] 1.010 1.005-1.025 [facility] Urobilinogen Qn (U) 0.2 {Madeleine'U}/dL 0.2-1.0 [facility] Laboratory - Specimen inform ationon 08-28-2024 Appearance (U) CLEAR CLEAR [facility] Color (U) LT. YELLOW YELLOW [facility] Laboratory - Urinalysison Leukocyte esterase Test strip Ql (U) MODERATE Abnormal NEGATIVE [facility] Nitrite Ql (U) Positive Abnormal NEGATIVE [facility] Protein (U) [Mass/Vol] 80.9 mg/dL High <=11.9 [facility] Protein Ql (U) 100 mg/dL Abnormal NEG/TRACE [facility] Leukocytes [#/volume] correc madhavi for nucleated erythrocytes in Blood by Automated counon 08-28-2024 WBC corrected for nucl RBC Auto (Bld) [#/Vol] Leukocytes [#/volume] corrected for nucleated erythrocytes in Blood by Automated coun 4.0-11.0 [facility] MCH Auto (RBC) [Entitic mass ]on 08-28-2024 MCH (RBC) [Entitic mass] MCH [Entitic mass] by Automated count Low 26.7-34.0 [facility] MCHC Auto (RBC) [Mass/Vol]on 08-28-2024 MCHC (RBC) [Mass/Vol] MCHC [Mass/volume] by Automated count 29.9-35.2 [facility] MCV Auto (RBC) [Entitic vol] on 08-28-2024 MCV (RBC) [Entitic vol] MCV [Entitic volume] by Automated count 81.0-99.0 [facility] Microalbumin [Mass/volume] i n Urineon 08-28-2024 Albumin DL <= 20 mg/L (U) [Mass/Vol] Microalbumin [Mass/volume] in Urine <=30.0 [facility] No Panel Informationon 08-28 25-Hydroxy Vitamin D Total 8.5 ng/mL [facility] Comment on above: <20 ng/mL Vit D defi cient20-<30 ng/mL Vit D bgnvksnsxink57-560 ng/mL Vit D sufficient>100 ng/mL Potential Toxicity Folate 14.20 ng/mL 8.60-58.90 [facility] Parathyroid Hormone (Intact) 103 pg/mL Abnormal 15-65 [facility] Comment on above: Performed at: [address] [id number] Director: Chris Luna PhD, Phone: [phone] Phosphorus Level 5.5 mg/dL High 2.6-4.7 [facility] Urine Occult Blood TRACE-I NEGATIVE [facility] Urine Random Creatinine 18.25 mg/dL Low 20.00-300.0 0 [facility] Platelet mean volume Auto (B ld) [Entitic vol]on 08-28-2024 Platelet mean volume (Bld) [Entitic vol] Platelet mean volume [Entitic volume] in Blood by Automated count 9.5-13.5 [facility] Platelets Auto (Bld) [#/Vol] on 08-28-2024 Platelets (Bld) [#/Vol] Platelets [#/volume] in Blood by Automated count 150-450 [facility] RBC Auto (Bld) [#/Vol]on RBC (Bld) [#/Vol] Erythrocytes [#/volu me] in Blood by Automated count Low 4.20-5.40 [facility] Serum or plasma anion gap de terminationon 08-28-2024 Anion gap [Moles/Vol] Serum or plasma an ion gap determination [facility] Urine microalbumin/creatinin e mass ratioon 08-28-2024 Albumin/Creatinine DL <= 20 mg/L (U) [Mass ratio] Urine microalbumin/creatinine mass ratio High 0.0-29.9 [facility] Comment on above: NO MICROALBUMINURIA 0-29 MG/GCLINICAL MICROALBUMINURIA 30-300 MG/GMACROALBUMINURIA >300 MG/G Urine protein/creatinine rat ioon 08-28-2024 Protein/Creatinine (U) [Ratio] Urine protein/creatinine ratio [facility] MLR HEMOGLOBIN A1Con 024 Glucose [Mass/Vol] 243 mg/dL [facility] HbA1c (Bld) [Mass fraction] 10.1 % High 4.5 - 6.2 % [facility] Comment on above: ADA RECOMMENDED LIMI T 4.0 - 6.0 ADA THERAPEUTIC TARGET < 7.0 ACTION SUGGESTED > 7.0 Interpretation and review of laboratory results Abnormal [facility] 36on 07-05-2024 36 Received C9 approval . Pt called and scheduled. 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 LVM to call office back to schedule. Please advise pt to bring disc with imaging on it to her appt or advise editorial writer where imaging had been completed. Thank You Normal [facility] Telephoneon 05-03-2024 Telephone [id number] Fernando Wheeler 1960 F Date Provider Department Center 05/03/2024 808-LIAM, [facility] SURG Second Fl No family history on file Normal [facility] BLOOD CULTURE 1on 05-01-2024 BLOOD CULTURE 1 Blood Culture 1 NG5D NO GROWTH AT 5 DAYS.^NO GROWTH AT 5 DAYS. [facility] BLOOD CULTURE 2on 05-01-2024 BLOOD CULTURE 2 Blood Culture 2 NG5D NO GROWTH AT 5 DAYS.^NO GROWTH AT 5 DAYS. [facility] CNOVon 05-01-2024 CNOV Office Visit (UROLMN ) ----- AISLINN WHEELER ([id number]) 1960 F Date Time Provider Department 05/01/24 10:00 AM JUANITO BARNARD During your visit today, we recorded the following information about you: Pulse Blood pressure 74/minute 173/96 Juanito Barnard MD 05/01/2024 12:12 PM Signed [facility] UROLOGY NEW PATIENT [...] calculate BMI (more content not included)... Normal [facility] No [facility] 05-[facility], REFLEX MICROSCOP ICon 05-01-2024 Bilirubin Ql (U) Negative Negative [facility] Clarity (Unsp spec) Clear Clear [facility] Color (U) Yellow Yellow [facility] Glucose Test strip (U) [Mass/Vol] 1+ Abnormal Negative [facility] Hemoglobin Ql (U) Negative Negative [facility] Interpretation and review of laboratory results Abnormal [facility] Ketones Ql (U) Negative Negative [facility] Leukocyte esterase Test strip Ql (U) Trace Abnormal Negative [facility] Nitrite Ql (U) Negative Negative [facility] pH (U) 5.5 [pH] NINF - 8.5 [facility] Protein (U) [Mass/Vol] 2+ Abnormal Negative [facility] Specific gravity (U) [Rel density] 1.010 1.005 - 1.030 [facility] Urobilinogen Ql (U) 0.2 EU/dL 0.2-1.0 EU/dL [facility] This test was develo ped and its performance characteristics determined by [facility]'s [facility] Pathology and Laboratory Medicine [place] ([facility]). It has not been cleared or approved by the FDA. [facility] is regulated under CLIA as qualified to perform high-complexity testing. This test is used for clinical purposes. It should not be regarded as investigational or for research. [facility] Bilirubin Ql (U) Negative Normal Negative [facility] Comment on above: Order Comment: Speci men Type: URINE SPECIMENOrdering Facility: [facility] Address: [address] [place] [address] Performed By: #### L [id number] ####[facility] LABCLIA [id number] [place] [address] [place] Clarity (Unsp spec) Clear Normal Clear [facility] Comment on above: Order Comment: Speci men Type: URINE SPECIMENOrdering Facility: [facility] Address: [address] [place] [address] Performed By: #### L [id number] ####[facility] LABCLIA [id number] [place] [address] [place] Color (U) Yellow Normal Yellow [facility] Comment on above: Order Comment: Speci men Type: URINE SPECIMENOrdering Facility: [facility] Address: [address] [place] [address] Performed By: #### L [id number] ####[facility] LABCLIA [id number] [place] [address] [place] Glucose Test strip (U) [Mass/Vol] 1+ Abnormal Negative [facility] Comment on above: Order Comment: Speci men Type: URINE SPECIMENOrdering Facility: [facility] Address: [address] [place] [address] Performed By: #### L [id number] ####[facility] LABCLIA [id number] [place] [address] [place] Hemoglobin Ql (U) Negative Normal Negative [facility] Comment on above: Order Comment: Speci men Type: URINE SPECIMENOrdering Facility: [facility] Address: [address] [place] [address] Performed By: #### L [id number] ####[facility] LABCLIA [id number] [place] [address] [place] Ketones Ql (U) Negative Normal Negative [facility] Comment on above: Order Comment: Speci men Type: URINE SPECIMENOrdering Facility: [facility] Address: [address] [place], [place] [address] Performed By: #### L [id number] ####[facility] LABCLIA [id number] [place] [id number] [place] Leukocyte esterase Test strip Ql (U) Trace Abnormal Negative [facility] Comment on above: Order Comment: Speci men Type: URINE SPECIMENOrdering Facility: [facility] Address: [address] [place] [address] Performed By: #### L [id number] ####[facility] LABIA [id number] [place] [address] [place] Nitrite Ql (U) Negative Normal Negative [facility] Comment on above: Order Comment: Speci men Type: URINE SPECIMENOrdering Facility: [facility] Address: [address] [place] [address] Performed By: #### L [id number] ####[facility] LABIA [id number] [place] [address] [place] pH (U) 5.5 [pH] Normal <8.5 [facility] Comment on above: Order Comment: Speci men Type: URINE SPECIMENOrdering Facility: [facility] Address: [address] [place] [address] Performed By: #### L [id number] ####[facility] LABIA [id number] [place] [address] [place] Protein (U) [Mass/Vol] 2+ Abnormal Negative [facility] Comment on above: Order Comment: Speci men Type: URINE SPECIMENOrdering Facility: [facility] Address: [address] [place] [address] Performed By: #### L [id number] ####[facility] LABIA [id number] [place] [address] [place] Specific gravity (U) [Rel density] 1.010 Normal 1.005-1.030 [facility] Comment on above: Order Comment: Speci men Type: URINE SPECIMENOrdering Facility: [facility] Address: [address] [place] [address] Performed By: #### L [id number] ####[facility] LABIA [id number] [place] [address] [place] Urobilinogen Ql (U) 0.2 EU/dL Normal 0.2-1.0 EU/dL [facility] Comment on above: Order Comment: Speci men Type: URINE SPECIMENOrdering Facility: [facility] Address: [address] [place] [address] Performed By: #### L [id number] ####[facility] LABCLIA [id number] [address] [address] [place] URINE CULTURE, ROUTINEon [...] Cx Nom (U) Performed at: [facility] Bacteria identified Cx Nom (U) [address], [place] [id number] [facility] Bacteria identified Cx Nom (U) Technician Trainee: Chris Luna PhD, Phone: [phone] [facility] Drugs of abuse panel Screen (U)on 04-24-2024 Control Substance Panel, Urine SEE COMMENTS 04/28/2024 10:47 AM Abnormal [facility] Comment on above: Result Comment: NOTE Test Result Flag Unit RefValue -- Controlled Substance Monitoring, U List Patient's Current HYDROCODONE Medications ADDITIONAL INFORMATION Accuracy and completeness of declared medications on reports solely dependent on information submitted by client. Creatinine, U 51.0 mg/dL Specific [place] 1.010 pH 5.4 Oxidants Negative -- REFERENCE [...] Not Detected ng/mL Cutoff: 25 Tylenol 3 Fzicntd-0-mqud- Not Detected ng/mL Cutoff: 100 glucuronide Metabolite of codeine Morphine Not Detected ng/mL Cutoff: 25 Marium Leon, Contin; Also a minor metabolite (10%) of codeine and can be seen in low concentrations (<2,000 ng/mL) with poppy seed ingestion. Exximgmy-2-rmvo- Not Detected ng/mL Cutoff: 100 glucuronide Metabolite of morphine 6-monoacetylmorphine Not Detected ng/mL Cutoff: 25 Metabolite of heroin Hydrocodone Present A ng/mL Cutoff: 25 Lortab, [place], Vicodin; Also a very minor metabolite of codeine and impurity (<1%) of oxycodone. Norhydrocodone Present A ng/mL Cutoff: 25 Metabolite of hydrocodone Dihydrocodeine Present A ng/mL Cutoff: 25 Metabolite of hydrocodone Hydromorphone Not Detected ng/mL Cutoff: 25 Dilaudid, Exalgo; Also a metabolite of hydrocodone and a minor (<5%) metabolite of morphine. Vtwiqlqpzpame-7-rdcp- Present A ng/mL Cutoff: 100 glucuronide Metabolite of hydromorphone Oxycodone Not Detected ng/mL Cutoff: 25 Endocet, Percocet, Oxycontin Noroxycodone Not Detected ng/mL Cutoff: 25 Metabolite of oxycodone Oxymorphone Not Detected ng/mL Cutoff: 25 Numorphan, Opana; Also a metabolite of oxycodone. Pwpbfhrenql-8-axqj- Not Detected ng/mL Cutoff: 100 glucuronide Metabolite [...] Naloxone Not Detected ng/mL Cutoff: 25 Narcan Rwlykudf-5-syaa- Not Detected ng/mL Cutoff: 100 glucuronide Metabolite [...] of its metabolites (norhydrocodone and dihydrocodeine), and cboirpwmtxbrc-5-itge-glucuronide (metabolite of hydromorphone). Suspect use of hydrocodone and/or hydromorphone within the past three days. Trace amounts of hydrocodone can also be found as an impurity in hydromorphone. 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 Bladder remodeling without VUR. Valsalva voiding with atonic detrusor. Will refer to consider bladder augmentation. Carmenza Espinosa MD Voiding cystourethrogram- Voiding Cystourethrogram Patient Name - Aislinn Wheeler Date - April 02, 2024 Imaging exam - VCUG Number of images saved - 11 Patient position - Sitting Radiologic Findings: A clinical microbiologist radiograph was obtained. The bony and soft tissue structures are within normal. 147 ccs contrast were used to fill the bladder. The bladder outline is irregular/trabeculated and abnormal shaped appearing. There is no ureteral reflux. During the voiding phase there is abnormal bladder neck opening and urethra is not visualized. Bladder emptying is not visualized Read (more content not included)... Normal [facility] CNOVon 03-26-2024 CNOV Office Visit (UROLAV ) ----- AISLINN WHEELER ([id number]) 1960 F Date Time Provider Department 03/26/24 [...] Carmenza Espinosa MD 03/26/2024 11:54 AM Signed [facility] FOR [...] her bladder. Had bladder botox injections at [facility] about 3 mo ago with [...] Assessed 03/26/2024 PHYSICAL EXAM: Patient declined a hospitalist physician General: No acute distress, well appearing : [...] Signed INFOR (more content not included)... Normal [facility] UA DIP, URINE (POC)on 2023 BILIRUBIN UA (POCT) Negative Negative [facility] CLARITY UA (POCT) Cloudy [facility] COLOR UA (POCT) Light yellow [facility] GLUCOSE UA (POCT) Negative Negative mg/dL [facility] Hemoglobin Ql (U) Trace-intact Abnormal Negative [facility] Interpretation and review of laboratory results Abnormal [facility] KETONE UA (POCT) Negative Negative mg/dL [facility] LEUKOCYTES UA (POCT) Moderate Abnormal Negative [facility] NITRITE UA (POCT) Negative Negative [facility] PH UA (POCT) 6.0 4.5 - 8.0 [facility] Protein Ql (U) 100 mg/dL Abnormal Negative [facility] SPECIFIC GRAVITY UA (POCT) 1.020 1.005 - 1.030 [facility] UROBILINOGEN UA (POCT) 0.2 Normal E.U./dL [facility] Location:[facility], [address], [place], [place], [address] [facility] POINT OF CARE [facility] [place] 02-26-2024 CNPN Telephone (URFHR) ----- AISLINN WHEELER ([id number]) 1960 F Date Time Provider Department 02/26/24 [...] Encounter Status:Closed by FLAVIO COON on 02/26/24 [facility] 02-12-2024 CNPN Telephone (URFHR) ----- AISLINN WHEELER ([id number]) 1960 F Date Time Provider Department 02/12/24 [facility] visit today, we [...] Encounter Status:Closed by VONNIE WILDER on 02/12/[address] [facility] [address] Kidney WO and W contrast IVOrdered By: Ccf Provider on 02-02-2024 Interpretation and review of laboratory results Abnormal [facility] Radiology Result ACTIONABLE Abnormal [facility] Comment on above: This report contains an [...] provider for the next steps. [facility] CT Kidney WO and W contrast [...] be communicated with the ordering provider via [employer] staff message or phone message by Imaging [...] any questions regarding this interpretation, please call [phone]. If you are unable to reach us at the number above, please feel free to contact [facility] eRadiology at [phone]. DIVISION OF RADIOLOGY * * *Final Report* * * DATE OF EXAM: Feb 01 2024 3:26PM [facility] 0560 - CT UROGRAM WO/W IVCON / [...] dated 01/20/[address] scan dated 01/17/21 [facility] RESULT: Kidneys and urinary tract: Right: [...] No additional findings. DIVISION OF RADIOLOGY Provider, [facility] - 02/02/2024 * * *Final Report* * * DATE OF EXAM: Feb 01 2024 3:26PM [facility] 0560 - CT UROGRAM WO/W IVCON / [...] be communicated with the ordering provider via [employer] staff message or phone message by Imaging [...] any questions regarding this interpretation, please call [phone]. If you are unable to reach us at the number above, please feel free to contact [facility] eRadiology at [phone]. [facility] CREATININE BLDOrdered By: James mayberry Blade on 02-01-2024 Creatinine [Mass/Vol] 1.78 mg/dL High 0.58 - 0.96 mg/dL [facility] GFR/1.73 sq M.predicted among non-blacks MDRD (S/P/Bld) [Vol rate/Area] 31 mL/min/{1.73_m2} Low - PINF [facility] Comment on above: Estimated Glomerular Filtration [...] Interpretation and review of laboratory results Abnormal [facility] CREATININE BLDon 02-01-2024 Creatinine [Mass/Vol] 1.78 mg/dL High 0.58-0.96 [facility] Comment on above: Order Comment: Speci reinier Type: BLOOD SPECIMENOrdering Facility: [facility] Address: [address] [place] [address] Performed By: #### C RET1 ####[facility] LABCLIA [id number] [place] [address] Creatinine and Glomerular filtration rate.predicted panel (S/P/Bld) 31 mL/min/1.73m??? Low >=60 [facility] Comment on above: Order Comment: Speci men Type: BLOOD SPECIMENOrdering Facility: [facility] Address: [address] [place], [place] [address] Result Comment: Donna mated Glomerular Filtration Rate [...] actual GFR. Performed By: #### C RET1 ####[facility] LABCLIA [id number] [place] [address] CT Kidney WO and W contrast Mirna 02-01-2024 Radiology Study observation (narrative) [facility] CT UROGRAM WO/W IVCONon 01-19 CT UROGRAM WO/W IVCON * * *Final Report* * * DATE OF EXAM: Feb 01 2024 3:26PM [facility] 0560 - CT UROGRAM WO/W IVCON / [...] dated 01/20/[address] scan dated 01/17/21 [facility] RESULT: Kidneys and urinary tract: Right: [...] be communicated with the ordering provider via [employer] staff message or phone message by Imaging [...] any questions regarding this interpretation, please call [phone]. If you are unable to reach us at the number above, please feel free to contact [facility] at [phone]. [id number] ACTIONABLE Invalid Interpretation Code [facility] CNOVon 01-12-2024 CNOV Office Visit (URFMOB ) ----- AISLINN WHEELER ([id number]) 1960 F Date Time Provider Department 01/12/24 1:50 PM TAURUS BALLARD During your visit today, we recorded the following information about you: Pulse Blood pressure 75/minute 142/69 Taurus Ballard MD 01/12/2024 2:43 PM Signed [facility] UROLOGICAL [place] FOLLOW-UP PATIENT HISTORY AND PHYSICAL EXAM PATIENT [...] Will refer to Dr. Tamanna Ruiz APRN.MANAGER CONTROL Attending Note I have personally performed a [...] her ki (more content not included)... Normal [facility] UA DIP, URINE (POC)on 2023 BILIRUBIN UA (POCT) Negative Negative [facility] CLARITY UA (POCT) Clear [facility] COLOR UA (POCT) Yellow [facility] GLUCOSE UA (POCT) 100 mg/dL Abnormal Negative [facility] Hemoglobin Ql (U) Trace-intact Abnormal Negative [facility] Interpretation and review of laboratory results Abnormal [facility] KETONE UA (POCT) Negative Negative mg/dL [facility] LEUKOCYTES UA (POCT) Small Abnormal Negative [facility] NITRITE UA (POCT) Negative Negative [facility] PH UA (POCT) 5.5 4.5 - 8.0 [facility] Protein Ql (U) 100 mg/dL Abnormal Negative [facility] SPECIFIC GRAVITY UA (POCT) 1.015 1.005 - 1.030 [facility] UROBILINOGEN UA (POCT) 0.2 Normal E.U./dL [facility] Location:[facility], [address] [place], [place], [address] [place] [address] POINT OF CARE [facility] ED Note-Physicianon 10-30-19 ED Note-Physician [id number]#[id number] Normal [facility] Lab Reportson 10-30-2023 Lab Reports [id number]#[id number] Normal [facility] Lab Reports [id number] Normal [facility] Urology Office/Clinic Noteon 10-26-2023 Urology Office/Clinic Note Chief Complaint S/P to Cysto with Botox HPI Staff KML pt. Here for f/u to Botox 100u done 05/22/23. R/s'd appt from 06/28/23. Previous dx: renal cyst, mixed incontinence, feeling of incomplete bladder emptying, glucosuria. Pt was referred to Dr. Ballard at [facility] for evaluation of robotic left [...] Assessment/Plan 1. 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 [...] only tolerate [address] Olvera had to stop the procedure. This is confusing bc review of [facility]'s op report shows completely normal events (lidocaine instilled normally, 10 injections of 2ml each) so it's unclear if pt received full 100units or not. Pt called 06/08/23 c/o worsening leakage after Botox. PVR was 174 cc (compared to 142cc prior to botox). KML recommended to start CIC 3x/day for residual, timed voids q2hr, and tight DM control. Pt was in [facility] ER 06/19 and treated for E Coli [...] (N28.1: Cyst of kidney, acquired) MRI w/won nathalia done 01/20/21 shows Bosniak category 2F cyst within the lower pole of the left kidney measuri (more content not included)... Normal [facility] Comment on above: Result Comment: Elec [...] HEIDY ARNOLD PA-C, URL When: Where: [address] [facility] [place] [address] Medications What How Much When Instructions Unchanged [...] including vitamins, herbs, eye drops, creams, and vfyj-dse-twmexnv medicines. ? Any problems you or family [...] Do no (more content not included)... Normal [facility] Patient Educationon 10-25-19 Patient Education Urology [...] including vitamins, herbs, eye drops, creams, and slfj-fka-efhfeqv medicines. ? Any problems you or family [...] tells you to take them. ? Taking igwi-ovt-wkgqvgy medicines, vitamins, herbs, and supplements. General instructions [...] these instructions at home: Medicines ? Take gofd-jot-prgoirl and prescription medicines only as told by [...] health ca (more content not included)... Normal [facility] [place] 09-27-2023 NIECY Telephone (FVPRAD) ----- LIAMAISLINN ([id number]) 1960 F Date Time Provider Department 09/27/23 DREW ALSTON FVPRAD During your visit today, we recorded the following information about you: Drew Alston, Research Coordinator 09/27/2023 2:33 PM Signed IRB# [id number]: Vascular events in patients undergoing same-day nonCardiac surgery - [facility] PI: Mary Rojas MD, LETY, FASA. Outcomes Research Department. Anest[facility]. [facility]. Aislinn Pulido Liam was unavailable at the listed phone number. We will attempt to contact the patient through Knowledge [employer] message. Drew Esuqeda, Research Coordinator Research Coordinator Allergies As of Date: 09/27/2023 Noted Allergy Reaction LATEX 02/05/2020 2 - Rash Comments: Added based on information entered during case entry, please review and add reactions, type, and severity as needed Date Reviewed: 09/03/2023 Reviewed by: Chuck Kirk, REY - Fully Assessed Reason for Visit: Research F/U [438] Prescriptions as of 09/27/2023 - pregabalin (LYRICA) [...] Encounter Status:Closed by DREW ALSTON on 09/27/23 [facility] [place] 09-26-2023 NIECY Telephone (FVPRAD) ----- AISLINN WHEELER ([id number]) 1960 F Date Time Provider Department 09/26/23 DREW ALSTON FVPRAD During your visit today, we recorded the following information about you: Drew Alston, Research Coordinator 09/26/2023 3:32 PM Signed IRB# [id number]: Vascular events in patients undergoing same-day nonCardiac surgery - [facility] PI: Mary Rojas MD, LETY, FASA. Outcomes Research Department. Anest[facility]. [facility]. Aislinn Wheeler was unavailable at the [...] Fully Assessed Reason for Visit: Research F/U [428] Prescriptions as of 09/26/2023 - pregabalin (LYRICA) [...] Encounter Status:Closed by DREW ALSTON on 09/26/23 [facility] 09-04-2023 [facility] HNO ID: [id number] Author: ANTHONY BARROW MD Service: Hospital Medicine [...] Time Provider Department Center 10/06/2023 1:00 PM [facility] Brittanie 10/06/2023 2:00 PM [facility] Brittanie 10/11/2023 1:50 PM Taurus Ballard MD [facility] ALLERGIES Allergen Reactions Latex Rash Added [...] INSULIN SUBCUTANEO (more content not included)... Normal [facility] ALLIED HEALTHon 09-03-2023 [facility] HNO ID: [id number] Author: NICOL MILLIGAN RT(R) Service: Radiology Author [...] RT Michael(R) September 03, 2023 2:57 PM [facility] Basic metabolic 2000 panelon 09-03-2023 Anion gap [Moles/Vol] 10 mmol/L Normal 9-18 [facility] Comment on above: Order Comment: Speci men Type: BLOOD SPECIMEN Ordering Facility: [facility] Address: [address] [place] [address] Performed By: #### 2 4321-2 #### [facility] CLIA [id number] [address] [place] [address] [place] Calcium [Mass/Vol] 8.8 mg/dL Normal 8.5-10.2 [facility] Comment on above: Order Comment: Speci men Type: BLOOD SPECIMEN Ordering Facility: [facility] Address: [address] [place] [address] Performed By: #### 2 4321-2 #### [facility] CLIA [id number] [address] [place] [address] [place] Chloride [Moles/Vol] 103 mmol/L Normal 97-105 [facility] Comment on above: Order Comment: Speci men Type: BLOOD SPECIMEN Ordering Facility: [facility] Address: [address] [place] [address] Performed By: #### 2 4321-2 #### [facility] CLIA [id number] [address] [place] [address] [place] CO2 [Moles/Vol] 23 mmol/L Normal 22-30 [facility] Comment on above: Order Comment: [place] Type: BLOOD SPECIMEN Ordering Facility: [facility] Address: [address] [place] [address] Performed By: #### 2 4321-2 #### [facility] CLIA [id number] [address] [place] [address] [place] Creatinine [Mass/Vol] 1.29 mg/dL High 0.58-0.96 [facility] Comment on above: Order Comment: Simonai reinier Type: BLOOD SPECIMEN Ordering Facility: [facility] Address: [address] [place] [address] Performed By: #### 2 4321-2 #### [facility] CLIA [id number] [address] [place] [address] [place] Creatinine and Glomerular filtration rate.predicted panel (S/P/Bld) 46 mL/min/1.73m??? Low >=60 [facility] Comment on above: Order Comment: [place] Type: BLOOD SPECIMEN Ordering Facility: [facility] Address: [address] [place] [address] Result Comment: Dnona mated Glomerular Filtration Rate (eGFR) is calculated [...] GFR. Performed By: #### 2 4321-2 #### [facility] CLIA [id number] [address] [place] [address] [place] Glucose [Mass/Vol] 123 mg/dL High 74-99 [facility] Comment on above: Order Comment: Simonai reinier Type: BLOOD SPECIMEN Ordering Facility: [facility] Address: [address] [place] [address] Result Comment: The [place] Diabetes Association (ADA) provides guidance for cutoff [...] Standards of Medical Care in Diabetes 2016, [place] [employer]. Diabetes Care. 2016.39(Suppl 1). Performed By: #### 2 4321-2 #### [facility] CLIA [id number] [address] [place] [address] [place] Potassium [Moles/Vol] 5.0 mmol/L Normal 3.7-5.1 [facility] Comment on above: Order Comment: Specangelique [place] Type: BLOOD SPECIMEN Ordering Facility: [facility] Address: [address] [place] [address] Performed By: #### 2 4321-2 #### [facility] CLIA [id number] [address] [place] [address] [place] Sodium [Moles/Vol] 136 mmol/L Normal 136-144 [facility] Comment on above: Order Comment: [place] Type: BLOOD SPECIMEN Ordering Facility: [facility] Address: [address] [place] [address] Performed By: #### 2 4321-2 #### [facility] CLIA [id number] [address] [place] [address] [place] Urea nitrogen [Mass/Vol] 22 mg/dL High 7-21 [facility] Comment on above: Order Comment: [place] Type: BLOOD SPECIMEN Ordering Facility: [facility] Address: [address] [place] [address] Performed By: #### 2 4321-2 #### [facility] CLIA [id number] [address] [place] [address] [place] CBC panel Auto (Bld)on 09-03 Erythrocyte distribution width (RBC) [Ratio] 14.6 % Normal 11.5-15.0 [facility] Comment on above: Order Comment: Speci men Type: BLOOD SPECIMEN Ordering Facility: [facility] Address: [address] [place] [address] Performed By: #### B HB, #### [facility] CLIA [id number] [address] [place] [address] [place] Hematocrit (Bld) [Volume fraction] 28.7 % Low 36.0-46.0 [facility] Comment on above: Order Comment: Speci men Type: BLOOD SPECIMEN Ordering Facility: [facility] Address: [address] [place] [address] Performed By: #### B HB, #### [facility] CLIA [id number] [address] [place] [address] [place] Hemoglobin (Bld) [Mass/Vol] 8.9 g/dL Low 11.5-15.5 [facility] Comment on above: Order Comment: Speci men Type: BLOOD SPECIMEN Ordering Facility: [facility] Address: [address] [place] [address] Performed By: #### B HB, #### [facility] CLIA [id number] [address] [place] [address] [place] MCH (RBC) [Entitic mass] 24.1 pg Low 26.0-34.0 [facility] Comment on above: Order Comment: Speci men Type: BLOOD SPECIMEN Ordering Facility: [facility] Address: [address] [place] [address] Performed By: #### B HB, #### [facility] CLIA [id number] [address] [place] [address] [place] MCHC (RBC) [Mass/Vol] 31.0 g/dL Normal 30.5-36.0 [facility] Comment on above: Order Comment: Speci men Type: BLOOD SPECIMEN Ordering Facility: [facility] Address: [address] [place] [address] Performed By: #### B HB, #### [facility] CLIA [id number] [address] [place] [address] [place] MCV (RBC) [Entitic vol] 77.6 fL Low 80.0-100.0 [facility] Comment on above: Order Comment: Speci men Type: BLOOD SPECIMEN Ordering Facility: [facility] Address: [address] [place] [address] Performed By: #### B HB, #### [facility] CLIA [id number] [address] [place] [address] [place] Nucleated RBC (Bld) [#/Vol] 10*3/uL Normal <0.01 [facility] Comment on above: Order Comment: Speci men Type: BLOOD SPECIMEN Ordering Facility: [facility] Address: [address] [place] [address] Performed By: #### B HB, #### [facility] CLIA [id number] [address] [place] [address] [place] Platelet mean volume (Bld) [Entitic vol] 10.8 fL Normal 9.0-12.7 [facility] Comment on above: Order Comment: Speci men Type: BLOOD SPECIMEN Ordering Facility: [facility] Address: [address] [place] [address] Performed By: #### B HB, #### [facility] CLIA [id number] [address] [place] [address] [place] Platelets (Bld) [#/Vol] 334 10*3/uL Normal 150-400 [facility] Comment on above: Order Comment: Speci men Type: BLOOD SPECIMEN Ordering Facility: [facility] Address: [address] [place] [address] Performed By: #### B HB, 07969-6 #### [facility] CLIA [id number] [address] [place] [address] [place] RBC (Bld) [#/Vol] 3.70 10*6/uL Low 3.90-5.20 [facility] Comment on above: Order Comment: Speci men Type: BLOOD SPECIMEN Ordering Facility: [facility] Address: [address] [place] [id number] Performed By: #### B HB, 38103-2 #### [facility] CLIA [id number] [address] [place] [id number] [place] WBC (Bld) [#/Vol] 6.44 10*3/uL Normal 3.70-11.00 [facility] Comment on above: Order Comment: Speci men Type: BLOOD SPECIMEN Ordering Facility: [facility] Address: [address] [place] [id number] Performed By: #### B HB, 41111-3 #### [facility] CLIA [id number] [address] [place] [id number] [place] CT FOOT WO [...] NO EVIDENCE OF OSTEOMYELITIS ON THIS EXAMINATION. [employer]: GUILLE Transcribe Date/Time: Sep 03 2023 11:22P Dictated by : FINESSE BUTLER MD This examination was interpreted and the report reviewed and electronically signed by: FINESSE BUTLER MD on Sep 03 2023 11:27PM EST [id number] Normal [facility] Basic metabolic 2000 panelon 09-02-2023 Anion gap [Moles/Vol] 9 mmol/L Normal 9-18 [facility] Comment on above: Order Comment: Speci men Type: BLOOD SPECIMEN Ordering Facility: [facility] Address: [address] [place] [address] Performed By: #### B HB, 35219-9 #### [facility] CLIA [id number] [address] [place] [address] [place] Calcium [Mass/Vol] 8.1 mg/dL Low 8.5-10.2 [facility] Comment on above: Order Comment: Speci men Type: BLOOD SPECIMEN Ordering Facility: [facility] Address: [address] [place] [address] Performed By: #### B HB, 65912-7 #### [facility] CLIA [id number] [address] [place] [address] [place] Chloride [Moles/Vol] 106 mmol/L High 97-105 [facility] Comment on above: Order Comment: Speci men Type: BLOOD SPECIMEN Ordering Facility: [facility] Address: [address] [place] [address] Performed By: #### B HB, 39336-9 #### [facility] CLIA [id number] [address] [place] [address] [place] CO2 [Moles/Vol] 22 mmol/L Normal 22-30 [facility] Comment on above: Order Comment: Speci men Type: BLOOD SPECIMEN Ordering Facility: [facility] Address: [address] [place] [address] Performed By: #### B HB, 29905-1 #### [facility] CLIA [id number] [address] [place] [address] [place] Creatinine [Mass/Vol] 1.30 mg/dL High 0.58-0.96 [facility] Comment on above: Order Comment: Speci men Type: BLOOD SPECIMEN Ordering Facility: [facility] Address: [address] [place] [address] Performed By: #### B HB, 58705-6 #### [facility] CLIA [id number] [address] [place] [address] [place] Creatinine and Glomerular filtration rate.predicted panel (S/P/Bld) 46 mL/min/1.73m??? Low >=60 [facility] Comment on above: Order Comment: [place] Type: BLOOD SPECIMEN Ordering Facility: [facility] Address: [address] [place] [address] Result Comment: Donna mated Glomerular Filtration Rate [...] actual GFR. Performed By: #### B [place], 88308-2 #### [facility] CLIA [id number] [place] [address] [place] Glucose [Mass/Vol] 192 mg/dL High 74-99 [facility] Comment on above: Order Comment: [place] Type: BLOOD SPECIMEN Ordering Facility: [facility] Address: [address] [place] [address] Result Comment: The [place] Diabetes Association (ADA) provides guidance for cutoff [...] Standards of Medical Care in Diabetes 2016, [place] [employer]. Diabetes Care. 2016.39(Suppl 1). Performed By: #### B HB, 77806-9 #### [facility] CLIA [id number] [place] [address] [place] Potassium [Moles/Vol] 4.9 mmol/L Normal 3.7-5.1 [facility] Comment on above: Order Comment: Speci men Type: BLOOD SPECIMEN Ordering Facility: [facility] Address: [address] [place] [address] Performed By: #### B HB, 91802-4 #### [facility] CLIA [id number] [address] [place] [address] [place] Sodium [Moles/Vol] 137 mmol/L Normal 136-144 [facility] Comment on above: Order Comment: Speci men Type: BLOOD SPECIMEN Ordering Facility: [facility] Address: [address] [place] [address] Performed By: #### B HB, #### [facility] CLIA [id number] [address] [place] [address] [place] Urea nitrogen [Mass/Vol] 17 mg/dL Normal 7-21 [facility] Comment on above: Order Comment: Speci men Type: BLOOD SPECIMEN Ordering Facility: [facility] Address: [address] [place] [address] Performed By: #### B HB, #### [facility] CLIA [id number] [address] [place] [address] [place] CBC panel Auto (Bld)on 09-02 Erythrocyte distribution width (RBC) [Ratio] 14.6 % Normal 11.5-15.0 [facility] Comment on above: Order Comment: Speci men Type: BLOOD SPECIMEN Ordering Facility: [facility] Address: [address] [place] [address] Performed By: #### B HB, 53745-2 #### [facility] CLIA [id number] [address] [place] [address] [place] Hematocrit (Bld) [Volume fraction] 28.4 % Low 36.0-46.0 [facility] Comment on above: Order Comment: Speci men Type: BLOOD SPECIMEN Ordering Facility: [facility] Address: [address] [place] [address] Performed By: #### B HB, 38544-9 #### [facility] CLIA [id number] [address] [place] [address] [place] Hemoglobin (Bld) [Mass/Vol] 8.9 g/dL Low 11.5-15.5 [facility] Comment on above: Order Comment: Speci men Type: BLOOD SPECIMEN Ordering Facility: [facility] Address: [address] [place] [address] Performed By: #### B HB, #### [facility] CLIA [id number] [address] [place] [address] [place] MCH (RBC) [Entitic mass] 24.2 pg Low 26.0-34.0 [facility] Comment on above: Order Comment: Speci men Type: BLOOD SPECIMEN Ordering Facility: [facility] Address: [address] [place] [address] Performed By: #### B HB, #### [facility] CLIA [id number] [address] [place] [address] [place] MCHC (RBC) [Mass/Vol] 31.3 g/dL Normal 30.5-36.0 [facility] Comment on above: Order Comment: Speci men Type: BLOOD SPECIMEN Ordering Facility: [facility] Address: [address] [place] [address] Performed By: #### B HB, #### [facility] CLIA [id number] [address] [place] [address] [place] MCV (RBC) [Entitic vol] 77.2 fL Low 80.0-100.0 [facility] Comment on above: Order Comment: Speci men Type: BLOOD SPECIMEN Ordering Facility: [facility] Address: [address] [place] [address] Performed By: #### B HB, #### [facility] CLIA [id number] [address] [place] [address] [place] Nucleated RBC (Bld) [#/Vol] 10*3/uL Normal <0.01 [facility] Comment on above: Order Comment: Speci men Type: BLOOD SPECIMEN Ordering Facility: [facility] Address: [address] [place] [address] Performed By: #### B HB, 80524-0 #### [facility] CLIA [id number] [address] [place] [address] [place] Platelet mean volume (Bld) [Entitic vol] 10.4 fL Normal 9.0-12.7 [facility] Comment on above: Order Comment: Speci men Type: BLOOD SPECIMEN Ordering Facility: [facility] Address: [address] [place] [address] Performed By: #### B HB, 98687-4 #### [facility] CLIA [id number] [address] [place] [address] [place] Platelets (Bld) [#/Vol] 285 10*3/uL Normal 150-400 [facility] Comment on above: Order Comment: Speci men Type: BLOOD SPECIMEN Ordering Facility: [facility] Address: [address] [place] [address] Performed By: #### B HB, 74064-1 #### [facility] CLIA [id number] [address] [place] [address] [place] RBC (Bld) [#/Vol] 3.68 10*6/uL Low 3.90-5.20 [facility] Comment on above: Order Comment: Speci men Type: BLOOD SPECIMEN Ordering Facility: [facility] Address: [address] [place] [address] Performed By: #### B HB, 82686-2 #### [facility] CLIA [id number] [address] [place] [address] [place] WBC (Bld) [#/Vol] 5.94 10*3/uL Normal 3.70-11.00 [facility] Comment on above: Order Comment: Speci men Type: BLOOD SPECIMEN Ordering Facility: [facility] Address: [address] [place] [address] Performed By: #### B HB, 63625-2 #### [facility] CLIA [id number] [address] [place] [address] [place] Bacteria Ur Culton 4 Bacteria identified Cx Nom (U) CULTURE, URINE: No growth (<1,000 CFU/ml) Normal [facility] Comment on above: Performed By: #### 6 30-4 #### [facility] CLIA [id number] [address] [facility] [id number] [address] [place] Basic metabolic 2000 panelon 09-01-2023 Anion gap [Moles/Vol] 10 mmol/L Normal 9-18 [facility] Comment on above: Order Comment: Speci men Type: BLOOD SPECIMEN Ordering Facility: [facility] Address: [address] [place] [address] Performed By: #### Kimberlyn HB, 69916-7 #### [facility] CLIA [id number] [address] [place] [address] [place] Calcium [Mass/Vol] 7.9 mg/dL Low 8.5-10.2 [facility] Comment on above: Order Comment: Speci men Type: BLOOD SPECIMEN Ordering Facility: [facility] Address: [address] [place] [address] Performed By: #### [place], [address]-1 #### [facility] CLIA [id number] [address] [place] [address] [place] Chloride [Moles/Vol] 108 mmol/L High 97-105 [facility] Comment on above: Order Comment: Speci men Type: BLOOD SPECIMEN Ordering Facility: [facility] Address: [address] [place] [address] Performed By: #### [place], [address]-6 #### [facility] CLIA [id number] [place] [address] [place] CO2 [Moles/Vol] 20 mmol/L Low 22-30 [facility] Comment on above: Order Comment: Speci men Type: BLOOD SPECIMEN Ordering Facility: [facility] Address: [address] [place] [address] Performed By: #### B [place], 50351-8 #### [facility] CLIA [id number] [place] [address] [place] Creatinine [Mass/Vol] 1.39 mg/dL High 0.58-0.96 [facility] Comment on above: Order Comment: [place] Type: BLOOD SPECIMEN Ordering Facility: [facility] Address: [address] [place] [address] Performed By: #### [place], 32821-6 #### [facility] CLIA [id number] [address] [place] [address] [place] Creatinine and Glomerular filtration rate.predicted panel (S/P/Bld) 42 mL/min/1.73m??? Low >=60 [facility] Comment on above: Order Comment: [place] Type: BLOOD SPECIMEN Ordering Facility: [facility] Address: [address] [place] [address] Result Comment: Donna mated Glomerular Filtration Rate [...] actual GFR. Performed By: #### B [place], 05099-3 #### [facility] CLIA [id number] [address] [place] [address] [place] Glucose [Mass/Vol] 74 mg/dL Normal 74-99 [facility] Comment on above: Order Comment: [place] Type: BLOOD SPECIMEN Ordering Facility: [facility] Address: [address] [place] [address] Result Comment: The [place] [employer] (ADA) provides guidance for cutoff [...] Standards of Medical Care in Diabetes 2016, [place] [employer]. Diabetes Care. 2016.39(Suppl 1). Performed By: #### [place], [address]-7 #### [facility] CLIA [id number] [address] [place] [address] [place] Potassium [Moles/Vol] 4.7 mmol/L Normal 3.7-5.1 [facility] Comment on above: Order Comment: Speci men Type: BLOOD SPECIMEN Ordering Facility: [facility] Address: [address] [place] [address] Performed By: #### B HB, 47560-1 #### [facility] CLIA [id number] [address] [place] [address] [place] Sodium [Moles/Vol] 138 mmol/L Normal 136-144 [facility] Comment on above: Order Comment: Speci men Type: BLOOD SPECIMEN Ordering Facility: [facility] Address: [address] [place] [address] Performed By: #### B HB, 31633-7 #### [facility] CLIA [id number] [address] [place] [address] [place] Urea nitrogen [Mass/Vol] 25 mg/dL High 7-21 [facility] Comment on above: Order Comment: Speci men Type: BLOOD SPECIMEN Ordering Facility: [facility] Address: [address] [place] [address] Performed By: #### B [place], 54835-5 #### [facility] CLIA [id number] [address] [place] [address] [place] CBC panel Auto (Bld)on 09-01 Erythrocyte distribution width (RBC) [Ratio] 14.7 % Normal 11.5-15.0 [facility] Comment on above: Order Comment: Speci men Type: BLOOD SPECIMEN Ordering Facility: [facility] Address: [address] [place] [address] Performed By: #### B HB, 25441-8 #### [facility] CLIA [id number] [address] [place] [address] [place] Hematocrit (Bld) [Volume fraction] 29.4 % Low 36.0-46.0 [facility] Comment on above: Order Comment: Speci men Type: BLOOD SPECIMEN Ordering Facility: [facility] Address: [address] [place] [address] Performed By: #### B HB, #### [facility] CLIA [id number] [address] [place] [address] [place] Hemoglobin (Bld) [Mass/Vol] 9.1 g/dL Low 11.5-15.5 [facility] Comment on above: Order Comment: Speci men Type: BLOOD SPECIMEN Ordering Facility: [facility] Address: [address] [place] [address] Performed By: #### B HB, #### [facility] CLIA [id number] [address] [place] [address] [place] MCH (RBC) [Entitic mass] 24.4 pg Low 26.0-34.0 [facility] Comment on above: Order Comment: Speci men Type: BLOOD SPECIMEN Ordering Facility: [facility] Address: [address] [place] [address] Performed By: #### B HB, #### [facility] CLIA [id number] [address] [place] [address] [place] MCHC (RBC) [Mass/Vol] 31.0 g/dL Normal 30.5-36.0 [facility] Comment on above: Order Comment: Speci men Type: BLOOD SPECIMEN Ordering Facility: [facility] Address: [address] [place] [address] Performed By: #### B HB, #### [facility] CLIA [id number] [address] [place] [address] [place] MCV (RBC) [Entitic vol] 78.8 fL Low 80.0-100.0 [facility] Comment on above: Order Comment: Speci men Type: BLOOD SPECIMEN Ordering Facility: [facility] Address: [address] [place] [address] Performed By: #### B HB, #### [facility] CLIA [id number] [address] [place] [address] [place] Nucleated RBC (Bld) [#/Vol] 10*3/uL Normal <0.01 [facility] Comment on above: Order Comment: Speci men Type: BLOOD SPECIMEN Ordering Facility: [facility] Address: [address] [place] [address] Performed By: #### B HB, #### [facility] CLIA [id number] [address] [place] [address] [place] Platelet mean volume (Bld) [Entitic vol] 10.8 fL Normal 9.0-12.7 [facility] Comment on above: Order Comment: Speci men Type: BLOOD SPECIMEN Ordering Facility: [facility] Address: [address] [place] [address] Performed By: #### B HB, #### [facility] CLIA [id number] [address] [place] [address] [place] Platelets (Bld) [#/Vol] 275 10*3/uL Normal 150-400 [facility] Comment on above: Order Comment: Speci men Type: BLOOD SPECIMEN Ordering Facility: [facility] Address: [address] [place] [address] Performed By: #### B HB, #### [facility] CLIA [id number] [address] [place] [address] [place] RBC (Bld) [#/Vol] 3.73 10*6/uL Low 3.90-5.20 [facility] Comment on above: Order Comment: Speci men Type: BLOOD SPECIMEN Ordering Facility: [facility] Address: [address] [place] [address] Performed By: #### B HB, #### [facility] CLIA [id number] [address] [place] [address] [place] WBC (Bld) [#/Vol] 7.48 10*3/uL Normal 3.70-11.00 [facility] Comment on above: Order Comment: Speci men Type: BLOOD SPECIMEN Ordering Facility: [facility] Address: [address] [place] [address] Performed By: #### B [place], 22955-5 #### [facility] CLIA [id number] [address] [place] [address] [place] CONSULTon 09-01-2023 CONSULT HNO ID: [id number] Author: NORMAN ROUSSEAU RN Service: ? Author [...] 2023 TIME: 10:44 AM PAGER/CONTACT #: Normal [facility] Magnesium SerPl-mCncon 09-01 Magnesium [Mass/Vol] 1.5 mg/dL Low 1.7-2.3 [facility] Comment on above: Order Comment: Speci men Type: BLOOD SPECIMEN Ordering Facility: [facility] Address: [address] [place] [address] Performed By: #### [place], 25810-5 #### [facility] CLIA [id number] [address] [place] [address] [place] URINALYSIS, REFLEX MICROSCOP ICon 09-01-2023 Bacteria LM.HPF (Urine sed) [#/Area] Few Abnormal None Seen [facility] Comment on above: Order Comment: Speci men Type: BLOOD SPECIMEN Ordering Facility: [facility] Address: [address] [place] [address] Performed By: #### B HB, 79186-7 #### [facility] CLIA [id number] [address] [place] [address] [place] Bilirubin Ql (U) Negative Normal Negative [facility] Comment on above: Order Comment: Speci men Type: BLOOD SPECIMEN Ordering Facility: [facility] Address: [address] [place] [address] Performed By: #### B HB, 90742-4 #### [facility] CLIA [id number] [address] [place] [address] [place] Clarity (Unsp spec) Turbid Abnormal Clear [facility] Comment on above: Order Comment: Speci men Type: BLOOD SPECIMEN Ordering Facility: [facility] Address: [address] [place] [address] Performed By: #### B HB, 69582-8 #### [facility] CLIA [id number] [address] [place] [address] [place] Color (U) Light Yellow Normal Yellow [facility] Comment on above: Order Comment: Speci men Type: BLOOD SPECIMEN Ordering Facility: [facility] Address: [address] [place] [address] Performed By: #### B HB, #### [facility] CLIA [id number] [address] [place] [address] [place] Epithelial cells LM.HPF (Urine sed) [#/Area] Few Normal [facility] Comment on above: Order Comment: Speci men Type: BLOOD SPECIMEN Ordering Facility: [facility] Address: [address] [place] [address] Performed By: #### B HB, #### [facility] CLIA [id number] [address] [place] [address] [place] Glucose Test strip (U) [Mass/Vol] Negative Normal Trace, Negative [facility] Comment on above: Order Comment: Speci men Type: BLOOD SPECIMEN Ordering Facility: [facility] Address: [address] [place] [address] Performed By: #### B HB, #### [facility] CLIA [id number] [address] [place] [address] [place] Hemoglobin Ql (U) 1+ Abnormal Negative, Trace [facility] Comment on above: Order Comment: Speci men Type: BLOOD SPECIMEN Ordering Facility: [facility] Address: [address] [place] [address] Performed By: #### B HB, 38057-6 #### [facility] CLIA [id number] [address] [place] [address] [place] Ketones Ql (U) Negative Normal Negative, Trace [facility] Comment on above: Order Comment: Speci men Type: BLOOD SPECIMEN Ordering Facility: [facility] Address: [address] [place] [address] Performed By: #### B HB, #### [facility] CLIA [id number] [address] [place] [address] STATES [facility] Leukocyte esterase Test strip Ql (U) 500 Liam/uL Abnormal Negative, 25 Liam/uL [facility] Comment on above: Order Comment: Speci men Type: BLOOD SPECIMEN Ordering Facility: [facility] Address: [address] [place] [address] Performed By: #### B HB, #### [facility] CLIA [id number] [address] [place] [address] [place] Nitrite Ql (U) Negative Normal Negative [facility] Comment on above: Order Comment: Speci men Type: BLOOD SPECIMEN Ordering Facility: [facility] Address: [address] [place] [address] Performed By: #### B HB, #### [facility] CLIA [id number] [address] [place] [address] [place] pH (U) 6.0 [pH] Normal 5.0-8.0 [facility] Comment on above: Order Comment: Speci men Type: BLOOD SPECIMEN Ordering Facility: [facility] Address: [address] [place] [address] Performed By: #### B HB, #### [facility] CLIA [id number] [address] [place] [address] [place] [facility] Protein (U) [Mass/Vol] 1+ Abnormal Trace, Negative [facility] Comment on above: Order Comment: Speci men Type: BLOOD SPECIMEN Ordering Facility: [facility] Address: [address] [place] [address] Performed By: #### B HB, #### [facility] CLIA [id number] [address] [place] [address] [place] RBC LM.HPF (Urine sed) [#/Area] /[HPF] Abnormal 0-3 /HPF [facility] Comment on above: Order Comment: Speci men Type: BLOOD SPECIMEN Ordering Facility: [facility] Address: [address] [place] [address] Performed By: #### B [place], 44860-7 #### [facility] CLIA [id number] [address] [place] [address] [place] Specific gravity (U) [Rel density] 1.011 Normal 1.005-1.030 [facility] Comment on above: Order Comment: Speci men Type: BLOOD SPECIMEN Ordering Facility: [facility] Address: [address] [place] [address] Performed By: #### B HB, #### [facility] CLIA [id number] [address] [address] [place] Urobilinogen Ql (U) Negative Normal Negative [facility] Comment on above: Order Comment: Speci men Type: BLOOD SPECIMEN Ordering Facility: [facility] Address: [address] [place] [address] Performed By: #### Kimberlyn HB, #### [facility] CLIA [id number] [address] [place] [address] [place] WBC LM.HPF (Urine sed) [#/Area] /[HPF] Abnormal 0-5 /HPF [facility] Comment on above: Order Comment: Speci men Type: BLOOD SPECIMEN Ordering Facility: [facility] Address: [address] [place] [address] Performed By: #### B HB, #### [facility] CLIA [id number] [address] [place] [address] [place] ALLIED HEALTHon 08-31-2023 ALLIED HEALTH HNO ID: [id number] Author: LAKISHA LITTLE RT(R) Service: ? Author [...] Chriss(R) August 31, 2023 4:44 AM Normal [facility] Bacteria Bld Culton 08-31-19 24 Bacteria identified Cx Nom (Bld) CULTURE, BLOOD: No growth 5 days Normal [facility] Comment on above: Performed By: #### 6 00-7 ####[facility] [id number] [place] [address] [place] Bacteria Ur Culton [...] midstream collection technique or straight catheterization for???urine???collection. Normal [facility] Comment on above: Performed By: #### 6 30-4 #### [facility] CLIA [id number] [address] [place] [address] [place] CBC W Auto Differential pane l (Bld)on 08-31-2023 Basophils (Bld) [#/Vol] 0.03 10*3/uL Normal <0.11 [facility] Comment on above: Order Comment: Speci men Type: BLOOD SPECIMEN Ordering Facility: [facility] Address: [address] [place] [address] Performed By: #### B HB, 91916-3 #### [facility] CLIA [id number] [address] [place] Basophils/100 WBC (Bld) 0.3 % Normal [facility] Comment on above: Order Comment: Speci men Type: BLOOD SPECIMEN Ordering Facility: [facility] Address: [address] [place] [address] Performed By: #### B HB, #### [facility] CLIA [id number] [address] [place] [address] [place] Differential cell count method Nom (Bld) Auto Normal [facility] Comment on above: Order Comment: Speci men Type: BLOOD SPECIMEN Ordering Facility: [facility] Address: [address] [place] [address] Performed By: #### B HB, #### [facility] CLIA [id number] [address] [place] [address] [place] Eosinophils (Bld) [#/Vol] 10*3/uL Normal <0.46 [facility] Comment on above: Order Comment: Speci men Type: BLOOD SPECIMEN Ordering Facility: [facility] Address: [address] [place] [address] Performed By: #### B HB, #### [facility] CLIA [id number] [address] [place] [address] [place] Eosinophils/100 WBC (Bld) 0.1 % Normal [facility] Comment on above: Order Comment: Speci men Type: BLOOD SPECIMEN Ordering Facility: [facility] Address: [address] [place] [address] Performed By: #### B HB, #### [facility] CLIA [id number] [address] [place] [address] [place] Erythrocyte distribution width (RBC) [Ratio] 14.5 % Normal 11.5-15.0 [facility] Comment on above: Order Comment: Speci men Type: BLOOD SPECIMEN Ordering Facility: [facility] Address: [address] [place] [address] Performed By: #### B HB, #### [facility] CLIA [id number] [address] [place] [address] [place] Hematocrit (Bld) [Volume fraction] 31.5 % Low 36.0-46.0 [facility] Comment on above: Order Comment: Speci men Type: BLOOD SPECIMEN Ordering Facility: [facility] Address: [address] [place] [address] Performed By: #### B HB, #### [facility] CLIA [id number] [address] [place] [address] [place] Hemoglobin (Bld) [Mass/Vol] 10.0 g/dL Low 11.5-15.5 [facility] Comment on above: Order Comment: Speci men Type: BLOOD SPECIMEN Ordering Facility: [facility] Address: [address] [place] [address] Performed By: #### B HB, #### [facility] CLIA [id number] [address] [place] [address] [place] Immature granulocytes (Bld) [#/Vol] 0.06 10*3/uL Normal <0.10 [facility] Comment on above: Order Comment: Speci men Type: BLOOD SPECIMEN Ordering Facility: [facility] Address: [address] [place] [address] Performed By: #### B HB, #### [facility] CLIA [id number] [address] [place] [address] [place] Immature granulocytes/100 WBC (Bld) 0.7 % Normal [facility] Comment on above: Order Comment: Speci men Type: BLOOD SPECIMEN Ordering Facility: [facility] Address: [address] [place] [address] Performed By: #### B HB, #### [facility] CLIA [id number] [address] [place] [address] [place] Lymphocytes (Bld) [#/Vol] 1.67 10*3/uL Normal 1.00-4.00 [facility] Comment on above: Order Comment: Speci men Type: BLOOD SPECIMEN Ordering Facility: [facility] Address: [address] [place] [address] Performed By: #### B HB, #### [facility] CLIA [id number] [place] [address] [place] Lymphocytes/100 WBC (Bld) 18.8 % Normal [facility] Comment on above: Order Comment: Speci men Type: BLOOD SPECIMEN Ordering Facility: [facility] Address: [address] [place] [address] Performed By: #### B HB, #### [facility] CLIA [id number] [address] [place] [address] [place] MCH (RBC) [Entitic mass] 24.5 pg Low 26.0-34.0 [facility] Comment on above: Order Comment: Speci men Type: BLOOD SPECIMEN Ordering Facility: [facility] Address: [address] [place] [address] Performed By: #### B HB, #### [facility] CLIA [id number] [address] [place] [address] [place] MCHC (RBC) [Mass/Vol] 31.7 g/dL Normal 30.5-36.0 [facility] Comment on above: Order Comment: Speci men Type: BLOOD SPECIMEN Ordering Facility: [facility] Address: [address] [place] [address] Performed By: #### B HB, #### [facility] CLIA [id number] [address] [place] [address] [place] MCV (RBC) [Entitic vol] 77.2 fL Low 80.0-100.0 [facility] Comment on above: Order Comment: Speci men Type: BLOOD SPECIMEN Ordering Facility: [facility] Address: [address] [place] [address] Performed By: #### B HB, #### [facility] CLIA [id number] [address] [place] [address] [place] Monocytes (Bld) [#/Vol] 0.71 10*3/uL Normal <0.87 [facility] Comment on above: Order Comment: Speci men Type: BLOOD SPECIMEN Ordering Facility: [facility] Address: [address] [place] [address] Performed By: #### B HB, #### [facility] CLIA [id number] [address] [place] [address] [place] Monocytes/100 WBC (Bld) 8.0 % Normal [facility] Comment on above: Order Comment: Speci men Type: BLOOD SPECIMEN Ordering Facility: [facility] Address: [address] [place] [address] Performed By: #### B HB, #### [facility] CLIA [id number] [address] [place] [address] [place] Neutrophils (Bld) [#/Vol] 6.39 10*3/uL Normal 1.45-7.50 [facility] Comment on above: Order Comment: Speci men Type: BLOOD SPECIMEN Ordering Facility: [facility] Address: [address] [place] [address] Performed By: #### B HB, #### [facility] CLIA [id number] [address] [place] [address] [place] Neutrophils/100 WBC (Bld) 72.1 % Normal [facility] Comment on above: Order Comment: Speci men Type: BLOOD SPECIMEN Ordering Facility: [facility] Address: [address] [place] [address] Performed By: #### B HB, #### [facility] CLIA [id number] [address] [place] [address] [place] Nucleated RBC (Bld) [#/Vol] 10*3/uL Normal <0.01 [facility] Comment on above: Order Comment: Speci men Type: BLOOD SPECIMEN Ordering Facility: [facility] Address: [address] [place] [address] Performed By: #### B HB, #### [facility] CLIA [id number] [address] [place] [address] [place] Nucleated RBC/100 WBC (Bld) [Ratio] 0.0 /100 WBC Normal [facility] Comment on above: Order Comment: Speci men Type: BLOOD SPECIMEN Ordering Facility: [facility] Address: [address] [place] [address] Performed By: #### B HB, 41912-6 #### [facility] CLIA [id number] [address] [place] [address] [place] Platelet mean volume (Bld) [Entitic vol] 11.3 fL Normal 9.0-12.7 [facility] Comment on above: Order Comment: Speci men Type: BLOOD SPECIMEN Ordering Facility: [facility] Address: [address] [place] [address] Performed By: #### B HB, 27920-1 #### [facility] CLIA [id number] [address] [place] [address] [place] Platelets (Bld) [#/Vol] 316 10*3/uL Normal 150-400 [facility] Comment on above: Order Comment: Speci men Type: BLOOD SPECIMEN Ordering Facility: [facility] Address: [address] [place] [address] Performed By: #### B HB, 84898-0 #### [facility] CLIA [id number] [address] [place] [address] [place] RBC (Bld) [#/Vol] 4.08 10*6/uL Normal 3.90-5.20 [facility] Comment on above: Order Comment: Speci men Type: BLOOD SPECIMEN Ordering Facility: [facility] Address: [address] [place] [address] Performed By: #### B HB, 68208-8 #### [facility] CLIA [id number] [address] [place] [address] [place] WBC (Bld) [#/Vol] 8.87 10*3/uL Normal 3.70-11.00 [facility] [facility] Comment on above: Order Comment: Speci men Type: BLOOD SPECIMEN Ordering Facility: [facility] Address: [address] [place] [address] Performed By: #### B HB, 39848-5 #### [facility] CLIA [id number] [address] [place] [address] [place] Comprehensive metabolic 2000 panelon 08-31-2023 Albumin [Mass/Vol] 3.7 g/dL Low 3.9-4.9 [facility] Comment on above: Order Comment: Speci men Type: BLOOD SPECIMEN Ordering Facility: [facility] Address: [address] [place] [address] Performed By: #### B HB, 49963-7 #### [facility] CLIA [id number] [place] [address] [place] ALP [Catalytic activity/Vol] 99 U/L Normal 34-123 [facility] Comment on above: Order Comment: Speci men Type: BLOOD SPECIMEN Ordering Facility: [facility] Address: [address] [place] [address] Performed By: #### B HB, #### [facility] CLIA [id number] [address] [place] [address] [place] ALT [Catalytic activity/Vol] U/L Low 7-38 [facility] Comment on above: Order Comment: Speci men Type: BLOOD SPECIMEN Ordering Facility: [facility] Address: [address] [place] [address] Performed By: #### B HB, #### [facility] CLIA [id number] [address] [place] [address] [place] Anion gap [Moles/Vol] 12 mmol/L Normal 9-18 [facility] Comment on above: Order Comment: Speci men Type: BLOOD SPECIMEN Ordering Facility: [facility] Address: [address] [place] [address] Performed By: #### B HB, #### [facility] CLIA [id number] [address] [place] [address] [place] AST [Catalytic activity/Vol] 7 U/L Low 13-35 [facility] Comment on above: Order Comment: Speci men Type: BLOOD SPECIMEN Ordering Facility: [facility] Address: [address] [place] [address] Performed By: #### B HB, #### [facility] CLIA [id number] [address] [place] [address] [place] Bilirubin [Mass/Vol] 0.3 mg/dL Normal 0.2-1.3 [facility] Comment on above: Order Comment: Speci men Type: BLOOD SPECIMEN Ordering Facility: [facility] Address: [address] [place] [address] Performed By: #### B HB, #### [facility] CLIA [id number] [address] [place] [address] [place] Calcium [Mass/Vol] 8.7 mg/dL Normal 8.5-10.2 [facility] Comment on above: Order Comment: Speci men Type: BLOOD SPECIMEN Ordering Facility: [facility] Address: [address] [place] [address] Performed By: #### B HB, #### [facility] CLIA [id number] [address] [place] [address] [place] Chloride [Moles/Vol] 99 mmol/L Normal 97-105 [facility] Comment on above: Order Comment: Speci men Type: BLOOD SPECIMEN Ordering Facility: [facility] Address: [address] [place] [address] Performed By: #### B HB, #### [facility] CLIA [id number] [address] [place] [address] [place] CO2 [Moles/Vol] 19 mmol/L Low 22-30 [facility] Comment on above: Order Comment: Speci men Type: BLOOD SPECIMEN Ordering Facility: [facility] Address: [address] [place] [address] Performed By: #### B HB, #### [facility] CLIA [id number] [address] [place] [address] [place] Creatinine [Mass/Vol] 2.15 mg/dL High 0.58-0.96 [facility] Comment on above: Order Comment: Speci men Type: BLOOD SPECIMEN Ordering Facility: [facility] Address: [address] [place] [address] Performed By: #### B HB, #### [facility] CLIA [id number] [address] [place] [address] [place] Creatinine and Glomerular filtration rate.predicted panel (S/P/Bld) 25 mL/min/1.73m??? Low >=60 [facility] Comment on above: Order Comment: [place] Type: BLOOD SPECIMEN Ordering Facility: [facility] Address: [address] [place] [address] Result Comment: Donna mated Glomerular Filtration Rate [...] actual GFR. Performed By: #### B HB, 06759-1 #### [facility] CLIA [id number] [place] [address] [place] Glucose [Mass/Vol] 428 mg/dL High 74-99 [facility] Comment on above: Order Comment: [place] Type: BLOOD SPECIMEN Ordering Facility: [facility] Address: [address] [place] [address] Result Comment: The [place] [employer] (ADA) provides guidance for cutoff [...] Standards of Medical Care in Diabetes 2016, [place] [employer]. Diabetes Care. 2016.39(Suppl 1). Performed By: #### B [place], 93156-8 #### [facility] CLIA [id number] [address] [place] [id number] [place] Potassium [Moles/Vol] 5.2 mmol/L High 3.7-5.1 [facility] Comment on above: Order Comment: [place] Type: BLOOD SPECIMEN Ordering Facility: [facility] Address: [address] [place] [address] Performed By: #### B HB, 96220-2 #### [facility] CLIA [id number] [address] [place] [address] [place] Protein [Mass/Vol] 9.1 g/dL High 6.3-8.0 [facility] Comment on above: Order Comment: Speci men Type: BLOOD SPECIMEN Ordering Facility: [facility] Address: [address] [place] [address] Performed By: #### B HB, 99936-2 #### [facility] CLIA [id number] [address] [place] [address] [place] Sodium [Moles/Vol] 130 mmol/L Low 136-144 [facility] Comment on above: Order Comment: Speci men Type: BLOOD SPECIMEN Ordering Facility: [facility] Address: [address] [place] [address] Performed By: #### B HB, 94658-3 #### [facility] CLIA [id number] [address] [place] [address] [place] Urea nitrogen [Mass/Vol] 39 mg/dL High 7-21 [facility] Comment on above: Order Comment: Speci men Type: BLOOD SPECIMEN Ordering Facility: [facility] Address: [address] [place] [address] Performed By: #### B HB, 42278-2 #### [facility] CLIA [id number] [address] [place] [address] [place] ECG COMPLETEon 08-31-2023 ECG COMPLETE Ventricular Rate : 7 1 BPM Atrial Rate : 71 BPM P-R Interval : 166 ms QRS Duration : 80 ms Q-T Interval : 396 ms QTC Calculation(Bazett) : 431 ms Calculated P [place] : 82 degrees Calculated R [place] : 71 degrees Calculated T [place] : 48 degrees Sinus rhythm Normal ECG NO STEMI. 0752 Confirmed by MD MOISES, KASIE ([id number]), desk editor THERESA SEAY ([id number]) on 08/31/2023 1:24:15 PM NAME : AISLINN WHEELER PID : [id number] : 1960 Gender : Female Race : ORD : [id number] Procedure Date : Aug 31 2023 07:16:42 Edit Date : Aug 31 2023 13:24:16 Diagnosis: Sinus rhythm Normal ECG NO STEMI. 0752 Confirmed by MD DE LEON MICHAEL ([id number]), desk editor THERESA SEAY ([id number]) on 08/31/2023 1:24:15 PM Test Reason : Chest Pain Location : 402 : FVED fved05 Overread By : MD DE LEON MICHAEL Edited By : THERESA SEAY Referred By : , Acquired by : [id number], [facility] ECG COMPLETE Ventricular Rate : 8 8 BPM Atrial Rate : 88 BPM P-R Interval : 153 ms QRS Duration : 78 ms Q-T Interval : 370 ms QTC Calculation(Bazett) : 448 ms Calculated P [place] : 85 degrees Calculated R [place] : 69 degrees Calculated T [place] : 62 degrees Sinus rhythm Normal ECG NO STEMI. 0604 Confirmed by KASIE SANDOVAL MD ([id number]), desk editor THERESA SEAY ([id number]) on 08/31/2023 1:02:55 PM NAME : AISLINN WHEELER PID : [id number] : 1960 Gender : Female Race : ORD : [id number] Procedure Date : Aug 31 2023 04:17:52 Edit Date : Aug 31 2023 13:02:57 Diagnosis: Sinus rhythm Normal ECG NO STEMI. 0604 Confirmed by KASIE SANDOVAL MD ([id number]), desk editor THERESA SEAY ([id number]) on 08/31/2023 1:02:55 PM Test Reason : Arrhythmia Location : 402 : FVED fved05 Overread By : KASIE SANDOVAL MD Edited By : THERESA SEAY Referred By : , Acquired by : [id number], [facility] ED PROV NOTEon 08-31-2023 ED PROV NOTE HNO ID: [id number] Author: RAYNA RHODES PA-C Service: Emergency Medicine Author Type: Physician [employer] Type: ED Provider Notes Filed: 08/31/2023 08:06 [...] left foot. Pt states she saw her [facility] specialist and was directed to come to the [...] rarely occurring (more content not included)... Normal [facility] FLUABV+SARS-CoV-2+RSV Pnl Re sp ADRIEL+probeon 08-31-2023 FLUABV+SARS-CoV-2+RSV Pnl Resp ADRIEL+probe COVID 19 RESULT: Not detected The method used is RT-PCR or an equivalent NAAT method. Reference Range(the expected result in uninfected individuals): Not detected INFLUENZA A PCR: Not detected INFLUENZA B PCR: Not detected RSV PCR: Not detected Normal [facility] Comment on above: Performed By: #### 9 5941-1 ####[facility] [id number] [place] [address] [place] Gas and Carbon monoxide pane l (BldV)on 08-31-2023 BASE DEFICIT, VENOUS -5 mmol/L Low -2-0 [facility] Comment on above: Order Comment: [place] Type: VENOUS BLOOD SPECIMEN Ordering Facility: [facility] Address: [address] [place] [address] Performed By: #### 2 4344-4 #### [facility] CLIA [id number] [address] [place] [address] [place] Body temperature 100.04 [degF] Normal [facility] Comment on above: Order Comment: [place] Type: VENOUS BLOOD SPECIMEN Ordering Facility: [facility] Address: [address] [place] [address] Performed By: #### 2 4344-4 #### [facility] CLIA [id number] [address] [place] [address] [place] Calcium.ionized (Bld) [Mass/Vol] 1.08 mmol/L Normal 1.08-1.30 [facility] Comment on above: Order Comment: Simonai reinier Type: VENOUS BLOOD SPECIMEN Ordering Facility: [facility] Address: [address] [place] [address] Performed By: #### 2 4344-4 #### [facility] CLIA [id number] [address] [place] [address] [place] Calcium.ionized adjusted to pH 7.4 (BldA) [Moles/Vol] 1.06 mmol/L Low 1.08-1.30 [facility] Comment on above: Order Comment: Speci men Type: VENOUS BLOOD SPECIMEN Ordering Facility: [facility] Address: [address] [place] [address] Performed By: #### 2 4344-4 #### [facility] CLIA [id number] [address] [place] [address] [place] Carboxyhemoglobin (BldV) [Mass fraction] 3.8 % High 0.0-2.0 [facility] Comment on above: Order Comment: Speci men Type: VENOUS BLOOD SPECIMEN Ordering Facility: [facility] Address: [address] [place] [address] Result Comment: Carb oxyhemoglobin Reference Range for Smokers: 2.0-8.0% Performed By: #### 2 4344-4 #### [facility] CLIA [id number] [address] [place] [address] [place] Chloride [Moles/Vol] 106 mmol/L High 97-105 [facility] Comment on above: Order Comment: Speci men Type: VENOUS BLOOD SPECIMEN Ordering Facility: [facility] Address: [address] [place] [address] Performed By: #### 2 4344-4 #### [facility] CLIA [id number] [address] [place] [address] [place] CO2 (BldV) [Partial pressure] 35 mm[Hg] Low 42-55 [facility] Comment on above: Order Comment: Speci men Type: VENOUS BLOOD SPECIMEN Ordering Facility: [facility] Address: [address] [place] [address] Performed By: #### 2 4344-4 #### [facility] CLIA [id number] [address] [place] [address] [place] CO2 adjusted to patient's actual temperature (BldV) [Partial pressure] Normal [facility] Comment on above: Order Comment: Speci men Type: VENOUS BLOOD SPECIMEN Ordering Facility: [facility] Address: [address] [place] [address] Performed By: #### 2 4344-4 #### [facility] CLIA [id number] [address] [place] [address] [place] Glucose [Mass/Vol] 460 mg/dL High 60-105 [facility] Comment on above: Order Comment: Speci men Type: VENOUS BLOOD SPECIMEN Ordering Facility: [facility] Address: [address] [place] [address] Performed By: #### 2 4344-4 #### [facility] CLIA [id number] [address] [place] [address] [place] HCO3 (Bld) [Moles/Vol] 19 mmol/L Low 24-28 [facility] Comment on above: Order Comment: Speci men Type: VENOUS BLOOD SPECIMEN Ordering Facility: [facility] Address: [address] [place] [address] Performed By: #### 2 4344-4 #### [facility] CLIA [id number] [address] [place] [address] [place] Hematocrit (Bld) [Volume fraction] 29.7 % Low 36.0-46.0 [facility] Comment on above: Order Comment: Speci men Type: VENOUS BLOOD SPECIMEN Ordering Facility: [facility] Address: [address] [place] [address] Performed By: #### 2 4344-4 #### [facility] CLIA [id number] [address] [place] [address] [place] Hemoglobin (Bld) [Mass/Vol] 9.6 g/dL Low 11.5-15.5 [facility] Comment on above: Order Comment: Speci men Type: VENOUS BLOOD SPECIMEN Ordering Facility: [facility] Address: [address] [place] [address] Performed By: #### 2 4344-4 #### [facility] CLIA [id number] [address] [place] [address] [place] Lactate [Moles/Vol] 1.1 mmol/L Normal 0.5-2.2 [facility] Comment on above: Order Comment: Speci men Type: VENOUS BLOOD SPECIMEN Ordering Facility: [facility] Address: [address] [place] [address] Performed By: #### 2 4344-4 #### [facility] CLIA [id number] [address] [place] [address] [place] Methemoglobin (Bld) [Mass fraction] 1.1 % Normal 0.0-1.5 [facility] Comment on above: Order Comment: Speci men Type: VENOUS BLOOD SPECIMEN Ordering Facility: [facility] Address: [address] [place] [address] Performed By: #### 2 4344-4 #### [facility] CLIA [id number] [address] [place] [address] [place] O2 THERAPY RA=Room Air Normal [facility] Comment on above: Order Comment: Speci men Type: VENOUS BLOOD SPECIMEN Ordering Facility: [facility] Address: [address] [place] [address] Performed By: #### 2 4344-4 #### [facility] CLIA [id number] [address] [place] [address] [place] Oxygen (BldV) [Partial pressure] 118 mm[Hg] High 35-45 [facility] Comment on above: Order Comment: Speci men Type: VENOUS BLOOD SPECIMEN Ordering Facility: [facility] Address: [address] [place] [address] Performed By: #### 2 4344-4 #### [facility] CLIA [id number] [address] [place] [address] [place] Oxygen adjusted to patient's actual temperature (BldV) [Partial pressure] Normal [facility] Comment on above: Order Comment: Speci men Type: VENOUS BLOOD SPECIMEN Ordering Facility: [facility] Address: [address] [place] [address] Performed By: #### 2 4344-4 #### [facility] CLIA [id number] [address] [place] [address] [place] Oxygen saturation in Venous blood 99 % High 60-85 [facility] Comment on above: Order Comment: Speci men Type: VENOUS BLOOD SPECIMEN Ordering Facility: [facility] Address: [address] [place] [address] Performed By: #### 2 4344-4 #### [facility] CLIA [id number] [place] [address] [place] Oxyhemoglobin (BldV) [Mass fraction] 94 % High 60-85 [facility] Comment on above: Order Comment: Speci men Type: VENOUS BLOOD SPECIMEN Ordering Facility: [facility] Address: [address] [place] [address] Performed By: #### 2 4344-4 #### [facility] CLIA [id number] [address] [place] [address] [place] pH (BldV) 7.37 [pH] Normal 7.32-7.42 [facility] Comment on above: Order Comment: Speci men Type: VENOUS BLOOD SPECIMEN Ordering Facility: [facility] Address: [address] [place] [address] Performed By: #### 2 4344-4 #### [facility] CLIA [id number] [address] [place] [address] [place] pH adjusted to patient's actual temperature (BldV) Normal [facility] Comment on above: Order Comment: Speci men Type: VENOUS BLOOD SPECIMEN Ordering Facility: [facility] Address: [address] [place] [address] Performed By: #### 2 4344-4 #### [facility] CLIA [id number] [address] [place] [address] [place] Potassium [Moles/Vol] 5.3 mmol/L High 3.5-5.0 [facility] Comment on above: Order Comment: Speci men Type: VENOUS BLOOD SPECIMEN Ordering Facility: [facility] Address: [address] [place] [address] Performed By: #### 2 4344-4 #### [facility] CLIA [id number] [address] [place] [address] [place] Sodium [Moles/Vol] 133 mmol/L Low 136-144 [facility] Comment on above: Order Comment: Speci men Type: VENOUS BLOOD SPECIMEN Ordering Facility: [facility] Address: [address] [place] [address] Performed By: #### 2 4344-4 #### [facility] [id number] [address] [place] HISTORY PHYSICALon HISTORY PHYSICAL HNO ID: [id number] Author: ANTHONY BARROW MD Service: Hospital Medicine [...] left foot ulcer that patient was seen [facility] specialist as outpatient for and advised her to [...] s 08/31/23 1115 activity - mobilize patient (ak,wa) VTE Prophylaxis: VTE prophylaxis appropriate SIGNATURE: Anthony Barrow MD PATIENT NAME: Aislinn Wheeler DATE: August 31, 2023 TIME: 11:03 AM PAGER/CONTACT #: Normal [facility] KETONES/ACETONE/BHBon 2023 Beta hydroxybutyrate [Moles/Vol] 0.50 mmol/L High <0.28 [facility] Comment on above: Order Comment: Speci men Type: BLOOD SPECIMEN Ordering Facility: [facility] Address: [address] [place] [address] Performed By: #### B HB, 13149-8 #### [facility] CLIA [id number] [address] [place] [address] [place] POTASSIUM BLDon 08-31-2023 Potassium [Moles/Vol] 4.6 mmol/L Normal 3.7-5.1 [facility] Comment on above: Order Comment: Speci men Type: BLOOD SPECIMEN Ordering Facility: [facility] Address: [address] [place] [address] Performed By: #### B HB, 48713-4 #### [facility] CLIA [id number] [address] [place] [address] [place] SEPSIS LACTATEon 08-31-2023 Lactate [Moles/Vol] 1.2 mmol/L Normal 0.0-2.0 [facility] Comment on above: Order Comment: Speci men Type: BLOOD SPECIMEN Ordering Facility: [facility] Address: [address] [place] [address] Performed By: #### B HB, 22776-8 #### [facility] CLIA [id number] [address] [place] [address] [place] Urinalysis complete panel (U )on 08-31-2023 Bacteria LM.HPF (Urine sed) [#/Area] Many Abnormal None Seen [facility] Comment on above: Order Comment: Speci men Type: BLOOD SPECIMEN Ordering Facility: [facility] Address: [address] [place] [address] Performed By: #### B HB, #### [facility] CLIA [id number] [address] [place] [address] [place] Bilirubin Ql (U) Negative Normal Negative [facility] Comment on above: Order Comment: Speci men Type: BLOOD SPECIMEN Ordering Facility: [facility] Address: [address] [place] [address] Performed By: #### B HB, #### [facility] CLIA [id number] [address] [place] [address] [place] Clarity (Unsp spec) Turbid Abnormal Clear [facility] Comment on above: Order Comment: Speci men Type: BLOOD SPECIMEN Ordering Facility: [facility] Address: [address] [place] [address] Performed By: #### B HB, #### [facility] CLIA [id number] [address] [place] [address] [place] Color (U) Light Yellow Normal Yellow [facility] Comment on above: Order Comment: Speci men Type: BLOOD SPECIMEN Ordering Facility: [facility] Address: [address] [place] [address] Performed By: #### B HB, #### [facility] CLIA [id number] [address] [place] [address] [place] Glucose Test strip (U) [Mass/Vol] 4+ Abnormal Trace, Negative [facility] Comment on above: Order Comment: Speci men Type: BLOOD SPECIMEN Ordering Facility: [facility] Address: [address] [place] [address] Performed By: #### B HB, #### [facility] CLIA [id number] [address] [place] [address] [place] Hemoglobin Ql (U) Trace Normal Negative, Trace [facility] Comment on above: Order Comment: Speci men Type: BLOOD SPECIMEN Ordering Facility: [facility] Address: [address] [place] [address] Performed By: #### B HB, #### [facility] CLIA [id number] [address] [place] [address] [place] Ketones Ql (U) Negative Normal Negative, Trace [facility] Comment on above: Order Comment: Speci men Type: BLOOD SPECIMEN Ordering Facility: [facility] Address: [address] [place] [address] Performed By: #### B HB, #### [facility] CLIA [id number] [address] [place] [address] [place] Leukocyte esterase Test strip Ql (U) 500 Liam/uL Abnormal Negative, 25 Liam/uL [facility] Comment on above: Order Comment: Speci men Type: BLOOD SPECIMEN Ordering Facility: [facility] Address: [address] [place] [address] Performed By: #### B HB, #### [facility] CLIA [id number] [address] [place] [address] [place] Nitrite Ql (U) Negative Normal Negative [facility] Comment on above: Order Comment: Speci men Type: BLOOD SPECIMEN Ordering Facility: [facility] Address: [address] [place] [address] Performed By: #### B HB, #### [facility] CLIA [id number] [address] [place] [address] [place] pH (U) 6.0 [pH] Normal 5.0-8.0 [facility] Comment on above: Order Comment: Speci men Type: BLOOD SPECIMEN Ordering Facility: [facility] Address: [address] [place] [address] Performed By: #### B HB, #### [facility] CLIA [id number] [address] [place] [address] [place] Protein (U) [Mass/Vol] 1+ Abnormal Trace, Negative [facility] Comment on above: Order Comment: Speci men Type: BLOOD SPECIMEN Ordering Facility: [facility] Address: [address] [place] [address] Performed By: #### B HB, #### [facility] CLIA [id number] [address] RBC LM.HPF (Urine sed) [#/Area] 3-5 /HPF Abnormal 0-3 /HPF [facility] Comment on above: Order Comment: Speci men Type: BLOOD SPECIMEN Ordering Facility: [facility] Address: [address] [place] [address] Performed By: #### B HB, #### [facility] CLIA [id number] [address] [place] Specific gravity (U) [Rel density] 1.017 Normal 1.005-1.030 [facility] Comment on above: Order Comment: Speci men Type: BLOOD SPECIMEN Ordering Facility: [facility] Address: [address] [place] [address] Performed By: #### Kimberlyn HB, #### [facility] CLIA [id number] [address] [place] [address] [place] Urobilinogen Ql (U) Negative Normal Negative [facility] Comment on above: Order Comment: Speci men Type: BLOOD SPECIMEN Ordering Facility: [facility] Address: [address] [place] [address] Performed By: #### Kimberlyn HB, #### [facility] CLIA [id number] [address] [place] [address] [place] WBC LM.HPF (Urine sed) [#/Area] /[HPF] Abnormal 0-5 /HPF [facility] Comment on above: Order Comment: Speci men Type: BLOOD SPECIMEN Ordering Facility: [facility] Address: [address] [place] [address] Performed By: #### B HB, #### [facility] CLIA [id number] [address] [place] [address] [place] XR CHEST 1V [...] Fatigue and malaise, Fatigue and malaise (accession [id number]), Osteomyelitis (accession [id number]) MQ: XC1_5 Comparison: CT 01/17/2021, radiograph 01/17/2021 [...] performed for increased sensitivity, as clinically warranted. [employer]: PSCKimberlyn Transcribe Date/Time: Aug 31 2023 4:46A Dictated by : TAURUS MORTON MD This examination was interpreted and the report reviewed and electronically signed by: TAURUS MORTON MD on Aug 31 2023 4:51AM EST [id number] Normal [facility] XR FOOT 3V AP/LAT/OBL [...] Fatigue and malaise, Fatigue and malaise (accession [id number]), Osteomyelitis (accession [id number]) MQ: XC1_5 Comparison: CT 01/17/2021, radiograph 01/17/2021 [...] performed for increased sensitivity, as clinically warranted. [employer]: GUILLE Transcribe Date/Time: Aug 31 2023 4:46A Dictated by : TAURUS MORTON MD This examination was interpreted and the report reviewed and electronically signed by: TAURUS MORTON MD on Aug 31 2023 4:51AM EST [id number] Normal [facility] Operative Reporton Operative Report [id number]#1.00TIFF Normal [facility] Pathology Noteon 08-07-2023 Pathology Note [id number]#1.00TIFF Normal [facility] ED Note-Physicianon 06-29-20 23 ED Note-Physician [id number]#1.00TIFF Normal [facility] Patient Letter FTMCon [address] [facility] (Inserted Image. Grecia ble to display) June 28, 2023 AISLINN WHEELER [address] [place] [id number] : 1960 Dear Aislinn, You missed your scheduled appointment on: June with Dr. Lisa Olvera. Please note our appointment slots fill quickly. [...] any future cancellations. Sincerely, [facility] [address], [place] [address] Pt called and RS'd. Normal [facility] Basic metabolic 2000 panelon 06-23-2023 Anion gap [Moles/Vol] 9 mmol/L Normal -18 [facility] Comment on above: Order Comment: Speci men Type: BLOOD SPECIMEN Ordering Facility: [facility] Address: [address] [place] [address] Performed By: #### B HB, #### [facility] CLIA [id number] [address] [place] [address] [place] Calcium [Mass/Vol] 7.3 mg/dL Low 8.5-10.2 [facility] Comment on above: Order Comment: Speci men Type: BLOOD SPECIMEN Ordering Facility: [facility] Address: [address] [place] [address] Performed By: #### B HB, #### [facility] CLIA [id number] [address] [place] [address] [place] Chloride [Moles/Vol] 110 mmol/L High 97-105 [facility] Comment on above: Order Comment: Speci men Type: BLOOD SPECIMEN Ordering Facility: [facility] Address: [address] [place] [address] Performed By: #### B HB, #### [facility] CLIA [id number] [address] [place] [address] [place] CO2 [Moles/Vol] 19 mmol/L Low 22-30 [facility] Comment on above: Order Comment: Speci men Type: BLOOD SPECIMEN Ordering Facility: [facility] Address: [address] [place] [address] Performed By: #### B HB, 42125-0 #### [facility] CLIA [id number] [address] [place] [address] [place] Creatinine [Mass/Vol] 1.39 mg/dL High 0.58-0.96 [facility] Comment on above: Order Comment: Simonai men Type: BLOOD SPECIMEN Ordering Facility: [facility] Address: [address] [place] [address] Performed By: #### B HB, 95763-4 #### [facility] CLIA [id number] [address] [place] [address] [place] Creatinine and Glomerular filtration rate.predicted panel (S/P/Bld) 42 mL/min/1.73m??? Low >=60 [facility] Comment on above: Order Comment: Simonai men Type: BLOOD SPECIMEN Ordering Facility: [facility] Address: [address] [place] [address] Result Comment: Donna mated Glomerular Filtration Rate [...] actual GFR. Performed By: #### B HB, 75403-1 #### [facility] CLIA [id number] [place] [address] [place] Glucose [Mass/Vol] 157 mg/dL High 74-99 [facility] Comment on above: Order Comment: Speci reinier Type: BLOOD SPECIMEN Ordering Facility: [facility] Address: [address] [place] [address] Result Comment: The [place] Diabetes Association (ADA) provides guidance for cutoff [...] Standards of Medical Care in Diabetes 2016, [place] [employer]. Diabetes Care. 2016.39(Suppl 1). Performed By: #### B HB, 97688-1 #### [facility] CLIA [id number] [address] [place] [address] [place] Potassium [Moles/Vol] 5.1 mmol/L Normal 3.7-5.1 [facility] Comment on above: Order Comment: [place] Type: BLOOD SPECIMEN Ordering Facility: [facility] Address: [address] [place] [address] Performed By: #### B HB, 69705-1 #### [facility] CLIA [id number] [address] [place] [address] [place] Sodium [Moles/Vol] 138 mmol/L Normal 136-144 [facility] Comment on above: Order Comment: [place] Type: BLOOD SPECIMEN Ordering Facility: [facility] Address: [address] [place] [address] Performed By: #### B HB, 26540-0 #### [facility] CLIA [id number] [address] [place] [address] [place] Urea nitrogen [Mass/Vol] 21 mg/dL Normal 7-21 [facility] Comment on above: Order Comment: [place] Type: BLOOD SPECIMEN Ordering Facility: [facility] Address: [address] [place] [address] Performed By: #### B HB, 25950-5 #### [facility] CLIA [id number] [place] [address] [place] CBC panel Auto (Bld)on 06-23 Erythrocyte distribution width (RBC) [Ratio] 14.4 % Normal 11.5-15.0 [facility] Comment on above: Order Comment: [place] Type: BLOOD SPECIMEN Ordering Facility: [facility] Address: [address] [place] [address] Performed By: #### B HB, #### [facility] CLIA [id number] [address] [place] [address] [place] Hematocrit (Bld) [Volume fraction] 28.5 % Low 36.0-46.0 [facility] Comment on above: Order Comment: Speci men Type: BLOOD SPECIMEN Ordering Facility: [facility] Address: [address] [place] [address] Performed By: #### B HB, #### [facility] CLIA [id number] [address] [place] [address] [place] Hemoglobin (Bld) [Mass/Vol] 9.0 g/dL Low 11.5-15.5 [facility] Comment on above: Order Comment: Speci men Type: BLOOD SPECIMEN Ordering Facility: [facility] Address: [address] [place] [address] Performed By: #### B HB, #### [facility] CLIA [id number] [address] [place] [address] [place] MCH (RBC) [Entitic mass] 25.2 pg Low 26.0-34.0 [facility] Comment on above: Order Comment: Speci men Type: BLOOD SPECIMEN Ordering Facility: [facility] Address: [address] [place] [address] Performed By: #### B HB, #### [facility] CLIA [id number] [address] [place] [address] [place] MCHC (RBC) [Mass/Vol] 31.6 g/dL Normal 30.5-36.0 [facility] Comment on above: Order Comment: Speci men Type: BLOOD SPECIMEN Ordering Facility: [facility] Address: [address] [place] [address] Performed By: #### B HB, 14886-6 #### [facility] CLIA [id number] [address] [place] [address] [place] MCV (RBC) [Entitic vol] 79.8 fL Low 80.0-100.0 [facility] Comment on above: Order Comment: Speci men Type: BLOOD SPECIMEN Ordering Facility: [facility] Address: [address] [place] [address] Performed By: #### B HB, 96878-8 #### [facility] CLIA [id number] [address] [place] [address] [place] Nucleated RBC (Bld) [#/Vol] 10*3/uL Normal <0.01 [facility] Comment on above: Order Comment: Speci men Type: BLOOD SPECIMEN Ordering Facility: [facility] Address: [address] [place] [address] Performed By: #### B HB, 98355-7 #### [facility] CLIA [id number] [address] [place] [address] [place] Platelet mean volume (Bld) [Entitic vol] 10.6 fL Normal 9.0-12.7 [facility] Comment on above: Order Comment: Speci men Type: BLOOD SPECIMEN Ordering Facility: [facility] Address: [address] [place] [address] Performed By: #### B HB, 69759-1 #### [facility] CLIA [id number] [address] [place] [address] [place] Platelets (Bld) [#/Vol] 251 10*3/uL Normal 150-400 [facility] Comment on above: Order Comment: Speci men Type: BLOOD SPECIMEN Ordering Facility: [facility] Address: [address] [place] [address] Performed By: #### B HB, 98916-8 #### [facility] CLIA [id number] [address] [place] [address] [place] RBC (Bld) [#/Vol] 3.57 10*6/uL Low 3.90-5.20 [facility] Comment on above: Order Comment: Speci men Type: BLOOD SPECIMEN Ordering Facility: [facility] Address: [address] [place] [address] Performed By: #### B HB, 61572-9 #### [facility] CLIA [id number] [address] [place] [address] [place] WBC (Bld) [#/Vol] 7.47 10*3/uL Normal 3.70-11.00 [facility] Comment on above: Order Comment: Speci men Type: BLOOD SPECIMEN Ordering Facility: [facility] Address: [address] [id number] Performed By: #### B HB, 75063-4 #### [facility] CLIA [id number] [address] STATES OF [place] CNDSon 06-23-2023 CNDS HNO ID: [id number] Author: Annie Martinez APRN.MANAGER CONTROL Service: Urology Author Type: Nurse Practitioner Type: [...] patient's care. Taurus Ballard MD ----- [facility] [address] [phone] or [phone] [facility] I N F O R M A T I O N STANDARD [facility] DOCUMENT DISCHARGE SUMMARY Patient Name: Aislinn Wheeler [...] Your Medications These medications were sent to [facility] [address] [place] [address] Hours: Monday-Monday: 7am-7pm, Sat: 9am-1pm acetaminophen 325 mg tablet docusate sodium 100 mg capsule Future Appointments: No future appointments. Electronically SIGNED by Licensed Independent Practitioner: Annie Martinez APRN.[facility] 06-23-2023 [facility] ----- AISLINN WHEELER ([id number]) 1960 F Date Time Provider Department 06/23/23 [facility] During your visit today, we recorded the following information about you: Heidy Garcia RN 06/23/2023 9:05 AM Signed Patient had left robotic partial nephrectomy by Dr. Ballard on 06/22/2023 Will call for surgical follow up once discharged Heidy Garcia RN 06/26/2023 10:45 AM Signed Patient phone number non functioning. Active in [employer] will send message inquiring on how she's feeling post-operatively. Vonnie Wilder RN 06/27/2023 10:15 AM Signed Spoke with grand daughter, Lola, as this office is unable to reach patient for post op call. Lola reports, that patient's phone is turned off, and she does not know how to use [employer]. Lola reports that patient went to [place] ED due to excruciating pain -was given [...] Encounter Status:Closed by HEIDY GARCIA on 06/23/23 [facility] NURSING PROGon 06-23-2023 NURSING PROG HNO ID: [id number] Author: Sweta Cordova RN Service: ? Author [...] Annie Martinez, awaiting PRN order of hydralazine. [facility] ANES POSTPROC EVALon 023 ANES POSTPROC EVAL HNO ID: [id number] Author: Rikki Jhaveri MD Service: Anesthesiology Author [...] June 22, 2023 TIME: 2:18 PM CSN: [id number] [facility] ANES PRE-OPon 06-22-2023 ANES PRE-OP HNO ID: [id number] Author: Rikki Jhaveri MD Service: Anesthesiology Author [...] June 22, 2023 TIME: 9:54 AM CSN: [id number] Normal [facility] Basic metabolic 2000 panelon 06-22-2023 Anion gap [Moles/Vol] 7 mmol/L Low 9-18 [facility] Comment on above: Order Comment: Speci men Type: BLOOD SPECIMEN Ordering Facility: [facility] Address: [address] [place] [address] Performed By: #### 2 4321-2 #### [facility] CLIA [id number] [address] [place] [address] [place] Calcium [Mass/Vol] 7.5 mg/dL Low 8.5-10.2 [facility] Comment on above: Order Comment: Speci men Type: BLOOD SPECIMEN Ordering Facility: [facility] Address: [address] [place] [address] Performed By: #### 2 4321-2 #### [facility] CLIA [id number] [address] [place] [address] [place] Chloride [Moles/Vol] 108 mmol/L High 97-105 [facility] Comment on above: Order Comment: Speci men Type: BLOOD SPECIMEN Ordering Facility: [facility] Address: [address] [place] [address] Performed By: #### 2 4321-2 #### [facility] CLIA [id number] [address] [place] [address] [place] CO2 [Moles/Vol] 19 mmol/L Low 22-30 [facility] Comment on above: Order Comment: Speci men Type: BLOOD SPECIMEN Ordering Facility: [facility] Address: [address] [place] [address] Performed By: #### 2 4321-2 #### [facility] CLIA [id number] [address] [place] [address] [place] Creatinine [Mass/Vol] 1.57 mg/dL High 0.58-0.96 [facility] Comment on above: Order Comment: Speci men Type: BLOOD SPECIMEN Ordering Facility: [facility] Address: [address] [place] [address] Performed By: #### 2 4321-2 #### [facility] CLIA [id number] [address] [place] [address] [place] Creatinine and Glomerular filtration rate.predicted panel (S/P/Bld) 36 mL/min/1.73m??? Low >=60 [facility] Comment on above: Order Comment: Speci men Type: BLOOD SPECIMEN Ordering Facility: [facility] Address: [address] [place] [address] Result Comment: Donna mated Glomerular Filtration Rate [...] GFR. Performed By: #### 2 4321-2 #### [facility] CLIA [id number] [place] [address] [place] Glucose [Mass/Vol] 275 mg/dL High 74-99 [facility] Comment on above: Order Comment: Speci men Type: BLOOD SPECIMEN Ordering Facility: [facility] Address: [address] [place] [address] Result Comment: The [place] Diabetes Association (ADA) provides guidance for cutoff [...] Standards of Medical Care in Diabetes 2016, [place] [employer]. Diabetes Care. 2016.39(Suppl 1). Performed By: #### 2 4321-2 #### [facility] CLIA [id number] [address] [place] [address] [place] Potassium [Moles/Vol] 5.3 mmol/L High 3.7-5.1 [facility] Comment on above: Order Comment: [place] Type: BLOOD SPECIMEN Ordering Facility: [facility] Address: [address] [place] [address] Performed By: #### 2 4321-2 #### [facility] CLIA [id number] [address] [place] [address] [place] Sodium [Moles/Vol] 134 mmol/L Low 136-144 [facility] Comment on above: Order Comment: [place] Type: BLOOD SPECIMEN Ordering Facility: [facility] Address: [address] [place] [address] Performed By: #### 2 4321-2 #### [facility] CLIA [id number] [address] [place] [address] [place] Urea nitrogen [Mass/Vol] 26 mg/dL High 7-21 [facility] Comment on above: Order Comment: Simonai reinier Type: BLOOD SPECIMEN Ordering Facility: [facility] Address: [address] [place] [address] Performed By: #### 2 4321-2 #### [facility] CLIA [id number] [address] [place] [address] [place] CBC panel Auto (Bld)on 06-22 Erythrocyte distribution width (RBC) [Ratio] 14.3 % Normal 11.5-15.0 [facility] Comment on above: Order Comment: Speci men Type: BLOOD SPECIMEN Ordering Facility: [facility] Address: [address] [place] [address] Performed By: #### 5 8410-2 #### [facility] CLIA [id number] [address] [place] [address] [place] Hematocrit (Bld) [Volume fraction] 27.8 % Low 36.0-46.0 [facility] Comment on above: Order Comment: Speci men Type: BLOOD SPECIMEN Ordering Facility: [facility] Address: [address] [place] [address] Performed By: #### 5 8410-2 #### [facility] CLIA [id number] [address] [place] [address] [place] Hemoglobin (Bld) [Mass/Vol] 8.9 g/dL Low 11.5-15.5 [facility] Comment on above: Order Comment: Speci men Type: BLOOD SPECIMEN Ordering Facility: [facility] Address: [address] [place] [address] Performed By: #### 5 8410-2 #### [facility] CLIA [id number] [address] [place] [address] [place] MCH (RBC) [Entitic mass] 25.3 pg Low 26.0-34.0 [facility] Comment on above: Order Comment: Speci men Type: BLOOD SPECIMEN Ordering Facility: [facility] Address: [address] [place] [address] Performed By: #### 5 8410-2 #### [facility] CLIA [id number] [address] [place] [address] [place] MCHC (RBC) [Mass/Vol] 32.0 g/dL Normal 30.5-36.0 [facility] Comment on above: Order Comment: Speci men Type: BLOOD SPECIMEN Ordering Facility: [facility] Address: [address] [place] [address] Performed By: #### 5 8410-2 #### [facility] CLIA [id number] [address] [place], [place] [address] [place] MCV (RBC) [Entitic vol] 79.0 fL Low 80.0-100.0 [facility] Comment on above: Order Comment: Speci men Type: BLOOD SPECIMEN Ordering Facility: [facility] Address: [address] [place] [address] Performed By: #### 5 8410-2 #### [facility] CLIA [id number] [place] [address] [place] Nucleated RBC (Bld) [#/Vol] 10*3/uL Normal <0.01 [facility] Comment on above: Order Comment: Speci men Type: BLOOD SPECIMEN Ordering Facility: [facility] Address: [address] [place] [address] Performed By: #### 5 8410-2 #### [facility] CLIA [id number] [address] [place] [address] [place] Platelet mean volume (Bld) [Entitic vol] 10.8 fL Normal 9.0-12.7 [facility] Comment on above: Order Comment: Speci men Type: BLOOD SPECIMEN Ordering Facility: [facility] Address: [address] [place] [address] Performed By: #### 5 8410-2 #### [facility] CLIA [id number] [address] [place] [address] [place] Platelets (Bld) [#/Vol] 230 10*3/uL Normal 150-400 [facility] Comment on above: Order Comment: Speci men Type: BLOOD SPECIMEN Ordering Facility: [facility] Address: [address] [place] [address] Performed By: #### 5 8410-2 #### [facility] CLIA [id number] [address] [place] [address] [place] RBC (Bld) [#/Vol] 3.52 10*6/uL Low 3.90-5.20 [facility] Comment on above: Order Comment: Speci men Type: BLOOD SPECIMEN Ordering Facility: [facility] Address: [address] [place] [address] Performed By: #### 5 8410-2 #### [facility] CLIA [id number] [address] [place] [address] [place] WBC (Bld) [#/Vol] 6.04 10*3/uL Normal 3.70-11.00 [facility] Comment on above: Order Comment: Speci men Type: BLOOD SPECIMEN Ordering Facility: [facility] Address: [address] [place] [address] Performed By: #### 5 8410-2 #### [facility] CLIA [id number] [place] [address] [place] NURSING PROGon 06-22-2023 NURSING PROG HNO ID: [id number] Author: Afia Lanier, REY Service: Nursing Author Type: Registered Nurse Type: Nursing Progress Note Filed: 06/22/2023 5:56 PM Note Text: Transfer Note: PATIENT NAME: Aislinn Wheeler Patient Location: [place] [address] [address] Room: [place] [address] Patient transferred into room/unit pk308 in stable condition. Actions taken: No futher actions taken at this time. Will continue to monitor and check with patient. [facility] NURSING PROG HNO ID: [id number] Author: Linda Nicholson RN Service: Nursing Author Type: Registered Nurse Type: Nursing Progress Note Filed: 06/22/2023 12:20 PM Note Text: pre-incision juan area noted to have redness and inflamed, prior to prepping and putting valerio in. [facility] NURSING PROG HNO ID: [id number] Author: Elva Joy RN Service: Nursing Author Type: Registered Nurse Type: Nursing Progress Note Filed: 06/22/2023 9:48 AM Note Text: PATIENT EDUCATION TOPIC: PROCEDURE / SURGERY: Pre-op Teaching: Surgery PATIENT NAME: Aislinn Wheeler PATIENT LOCATION: OR POOL/FV OR POOL READINESS TO LEARN [...] (RECOMMENDATION): None Electronically Signed By: Elva Joy [facility] OPERATIVE NOon 06-22-2023 OPERATIVE NO HNO ID: [id number] Author: Taurus Ballard MD Service: Urology Author Type: Physician Type: Operative Report Filed: 06/22/2023 1:48 PM Note Text: OPERATIVE/PROCEDURE REPORT LOG ID: [id number] Surgery/Procedure Date: 06/22/2023 Incision/Procedure Start Time: 11:49 AM Incision Close/Procedure End Time: 1:55 PM Surgeon(s)/Proceduralist( s) and [employer]room Foundry Laborer(s): Surgeon(s) and Role: * Taurus Ballard MD - Primary * Jeet De La Fuente MD - Resident - Assisting Physician [employer]room Foundry Laborer: Camden Rios PA-C; Alicia Harmon PA-C Procedure(s): [...] superior to the umbilicus a 12 mm orthopaedic physician assistant port was placed. At this point [...] a specimen bag out of the supraumbilical orthopaedic physician assistant port. This port was closed with [...] None Drains: 10 flat JUAN drain, 16 Spanish Valerio catheter Complications: None Accidental Punctures/Lacerations: None I/primary surgeon/proceduralist performed the procedure with assistance. SIGNATURE: Taurus Ballard MD PATIENT NAME: Aislinn Wheeler DATE: June 22, 2023 TIME: 1:42 PM PAGER/CONTACT #: [facility] SURGICAL PATHOLOGYon 023 CASE REPORT [facility] Comment on above: Order Comment: Speci men Type: BLOOD SPECIMEN Ordering Facility: [facility] Address: [address] [place] [address] Result Comment: Surg ical Pathology Report Case: [id number] Authorizing Provider: Taurus Ballard MD Collected: 06/22/2023 01:38 PM Ordering Location: [facility] Received: 06/22/2023 03:16 PM Operating Room Pathologist: Barron Cheema MD Specimen: KIDNEY PARTIAL NEPHRECTOMY LEFT, left renal neoplasm Performed By: #### [place], [address]-2 #### [facility] CLIA [id number] CLINICAL HISTORY [facility] Comment on above: Order Comment: Speci men Type: BLOOD SPECIMEN Ordering Facility: [facility] Address: [address] [place] [address] Result Comment: 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 - 7.2 cm gross greatest dimension of tissue specimen (defer to clinical/imaging for overall lesion size). Performed By: #### Kimberlyn FISCHER, #### [facility] CLIA [id number] [address] [place] [address] FINAL PERFORMING LAB Normal [facility] Comment on above: Order Comment: [place] Type: BLOOD SPECIMEN Ordering Facility: [facility] Address: [address] [place] [address] Result Comment: Diag nostic interpretation performed at [facility], [address] [address] CLIA# [id number] Handle Bender: Oswald Munguia M.D. Performed By: #### Kimberlyn FISCHER, #### [facility] CLIA [id number] [address] [place] [address] GROSS DESCRIPTION Normal [facility] Comment on above: Order Comment: [place] Type: BLOOD SPECIMEN Ordering Facility: [facility] Address: [address] [place] [address] Result Comment: Emre LINO PARTIAL NEPHRECTOMY LEFT Received in formalin designated left renal neoplasm is a segment of chilel-purple membranous tissue which weighs 39 g and measures 7.2 x 5.5 x 3.5 cm. There is cautery present at the margin which is inked orange. The surfaces are smooth with no masses or papillations grossly appreciated. Sectioning does not reveal any masses. Hydrometeorological Technician sections are submitted in 5 cassettes. BF June 23, 2023 9:00 AM Gross examination performed at [place], [address] [place] [address] CLIA # [id number] Performed By: #### Kimberlyn FISCHER, #### [facility] CLIA [id number] OF [facility] [place] 06-15-2023 CNPN Telephone (URR) ----- AISLINN WHEELER ([id number]) 1960 F Date Time Provider Department 06/15/23 [facility] During your visit today, we [...] Encounter Status:Closed by VONNIE WILDER on 06/15/23 [facility] [place] 06-12-2023 [facility] Telephone (URR) ----- LIAMAISLINN M ([id number]) 1960 F Date Time Provider Department 06/12/23 LILIANA VELASCORaquel During your visit today, we recorded the following information about you: Liliana Velasco RN 06/12/2023 8:56 AM Signed Received call from RN at Dr. Sara Augustine ([phone]) office (endocrinology) regarding clearance for upcoming surgery [...] Sara Dai, KIARA received and scanned into [employer] to view. Allergies As of Date: 06/12/2023 [...] Encounter Status:Closed by LILIANA VELASCO on 06/12/23 [facility] C Urineon 06-10-2023 Bacteria identified Cx [...] test was performed at: [facility], [address] [place] [address], [address]- , [place], Normal [facility] Comment on above: Performed By: #### 2 [id number] #### 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 Consent for Treatmenton Consent for Treatment [id number]#1.00CD:[address] [facility] Inpatient Patient Summaryon 05-22-2023 Inpatient Patient Summary [place] [address] Clinical Summary Person Information Name: AISLINN WHEELER Age: 63 Years : 1960 Sex: Female PCP: AGUSTO OLMSTEAD CNP Marital Status: Race: White Ethnicity: Non- or Language: Croatian Visit Id: Visit Reason: MIXED URINARY INCONTINENCE Speciality: Acuity: Enc Type: Outpatient Med Service: Surgery Arrival: 05/22/2023 09:41:57 Discharge: Dispo Type: Address: [address] [place] [id number] Provider Notes: Diagnosis: Feeling of incomplete bladder [...] Cap) Care Team Members: Attending Physician: Lisa Olvera MD Consulting Physician: Referring Physician: Lisa Olvera MD Follow up: With: Address: When: Lisa Olvera [address] [phone] Business (1) [facility] [address], [address] [address], [place] [address] [phone] Business (1) Comments: Office to schedule follow up in 1 month with PVR Patient Education Information: EU - Cystoscopy with Botox Injection Discharge Instructions (CUSTOM) Normal [facility] IntraOperative Documentson 1 IntraOperative Documents [id number]#1.00CD: 127 [facility] Main OR Intraoperative Recor don 05-22-2023 Main OR Intraoperative Record IntraOp Document Type FTURO Summary Primary Physician: Lisa Olvera MD Finalized Date/Time: 05/22/23 11:29:32 Pt. Name: AISLINN WHEELER/Sex: 1960 Female Med Rec #: [id number] Physician: Lisa Olvera MD Financial #: [id number] Pt. Type: O Room/Bed: / Admit/Disch: 05/22/23 09:41:57 - Institution: Case Times FTURO Entry 1 Patient Times In Room 05/22/23 11:15:00 Out Room 05/22/23 11:30:00 Procedure Times Start 05/22/23 11:22:00 Stop 05/22/23 11:26:00 Anesthesia Times Last Modified By: Katya LE, Marilee Feldman 05/22/23 11:26:29 General Comments: BOTOX 100 UNITS LOT#: [id number] , EXP DATE: 09/2025 -Jessica BLANCO RN Case Attendance FTURO Entry 1 Entry 2 Entry 3 Case Attendee Vern TAVERAS, Lisa Blanco RN, Marilee Solano CST, Cammie Feldman Role Performed Surgeon - Primary Biomass Plant Manager - Primary Scrub - Primary Time In [...] Verified Availability Equipment, Medication Time Out Lisa Olvera MD, Verified (If Participants Marilee Blanco RN [...] By: Marilee Blanco RN 05/22/23 11:[address] [facility] Main OR Preoperative Recordo n 05-22-2023 Main OR Preoperative Record Holding Area Document Type FTURO Summary Primary Physician: Lisa Olvera MD Finalized Date/Time: 05/22/23 10:32:24 Pt. Name: AISLINN WHEELER /Sex: 1960 Female Med Rec #: [id number] Physician: Lisa Olvera MD Financial #: [id number] Pt. Type: O Room/Bed: / Admit/Disch: 05/22/23 [...] By: Cammie Mcpherson RN 05/22/23 10:[address] [facility] Operative Reporton Operative Report Patient: BARBARA WHEELER Age: 63 years Sex: Female : 1960 Associated Diagnoses: None Author: Lisa Olvera MD Procedure Operative Information Details: Date/ Time: 05/22/2023 11:29:00. Pre-Op Dx: Feeling of incomplete bladder emptying (LSF35-ON R39.14, Discharge, Medical), Mixed incontinence (OYJ77-WA N39.46, Discharge, Medical), Urinary leakage (EBI87-UK R32, Discharge, Medical). Post-Op Dx: Same. Anesthesia [...] to [facility] in the remote past). Normal [facility] Comment on above: Result Comment: Elec tronically Signed By: Lue MD, Lisa M.\.br\Date and Time Signed: 05/22/23 11:30 EDT Outpatient Surgery Discharge Instructionon 05-22-2023 Outpatient Surgery Discharge Instruction [address] [address] Patient Discharge Instructions PERSON INFORMATION Name: AISLINN WHEELER Date of : 1960 Current Date: 05/22/2023 11:29:02 PHYSICIANS Admitting Physician: Lisa Olvera MD Comment: Discharge Diagnosis: Feeling of incomplete bladder emptying; Mixed incontinence; Urinary leakage AISLINN WHEELER has been given the following list of follow-up instructions, prescriptions, and patient education materials: IF UNABLE TO CONTACT YOUR PHYSICIAN AND YOU FEEL IT IS AN EMERGENCY, GO TO THE NEAREST EMERGENCY ROOM OR CALL 911 Follow up: With: Address: When: Lisa Olvera [address], [place] [phone] Business (1) [address] [place] [address] [phone] Business (1) Comments: Office to schedule follow [...] Date You may receive a survey from [employer] asking you to rate your care experience. Your feedback is important and will help us understand what we do well and how we can improve the quality of care we provide to you, your loved ones and our community. It?s an honor to serve you. Thank you for choosing [facility] Normal [facility] Consultation Noteon 05-19-20 Consultation Note [id number]#1.00CD:[address] [facility] A1C HEMOGLOBINon 05-18-2023 HbA1c (Bld) [Mass fraction] 14.0 % [employer] Other [place] 05-18-2023 [facility] Telephone (URFHR) ----- LIAMBARBARAAISLINN Ashok ([id number]) 1960 F Date Time Provider Department 05/18/23 TAURUS BALLARD During your visit today, we recorded the following information about you: Agusto Faulkner 05/18/2023 1:01 PM Signed Consult notes sent back to Dr. Lisa Olvera , phone [phone]. From Dr. Ballard office. Allergies As of [...] Encounter Status:Closed by DERIK FERNANDEZ on 06/09/23 [facility] Glucose - FINGER STICKon Glucose [Mass/Vol] 429 mg/dL [employer] Other HbA1c (Bld) [Mass fraction]o n 05-18-2023 A1C HEMOGLOBIN [facility] [employer] Other CNOVon 05-17-2023 CNOV Office Visit (URFHR) ----- AISLINN WHEELER ([id number]) 1960 F Date Time Provider Department 05/17/23 1:10 PM TAURUS BALLARD URR During your visit today, we recorded the following information about you: Temperature Pulse Blood pressure Weight 97.5 degrees 70/minute 172/81 60.1 kg Taurus Ballard MD 05/17/2023 1:35 PM Signed [facility] [place] FOLLOW-UP PATIENT HISTORY AND PHYSICAL EXAM PATIENT INFO: Ailsinn Wheeler 63 year old REFERRING M.D.: No [...] 1.92 01/19/[address] scan (outside records) [facility] 09/28/21 IMPRESSION: Since the prior CT [...] other structures) (more content not included)... Normal [facility] C Urineon 05-13-2023 Bacteria identified [...] test was performed at: [facility], [address] [place] [address], [address]- , [place], [facility] Comment on above: Performed By: #### 2 [id number] #### [facility] [address] [place] [address] Physician Referralon 023 Physician Referral [id number]#1.00CD:127 PATIENT IS SCHEDULED 05/17/2023 [facility] Consultation Noteon 05-04-20 23 Consultation Note [id number]#1.00CD:127 [facility] Insurance Correspondenceon 0 05-04-2023 Insurance Correspondence [id number]#1.00CD:1 27 [facility] Urology Office/Clinic Noteon 05-04-2023 Urology [...] mass on Kidney was not cancerous. However binding bench worker told her she has kidney cancer. Denies biopsy. States they did CT. Occasional small voids. Foot is improving and healing. BBS [address] Spargue office and request last encounter be faxed [...] PSH lap cholecystectomy, open hysterectomy -Continues with binding bench worker for CKD3 1. Renal cyst (N28.1: [...] pt to tertiary center, Dr. Ballard at [facility] for evaluation of robotic left cyst decortication -Pt states binding bench worker told her she has cancer. 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 Ordered: 36760 Measure Post Void residual urine and/or bladder capacity by US- non-imaging Urnls Dip Stick Auto w/o Microscopy POC 25711 2. Mixed incontinence (N39.46: Mixed incontinence) Pt [...] of Botox. (more content not included)... Normal [facility] Comment on above: Result Comment: Elec tronically Signed By: Vern TAVERAS, Lisa Montiel\.br\Date and Time Signed: 05/04/23 14:11 EDT Ambulatory Visit Summaryon 0 05-03-2023 Ambulatory Visit Summary AISLINN WHEELER :1960 Visit Date:05/03/2023 Ambulatory Visit Instructions Your Diagnosis Renal mass Renal cyst Mixed incontinence Feeling of incomplete bladder emptying Glucosuria Tests Performed Urnls Dip Stick Auto w/o Microscopy POC 38021 Your Care Team Attending Physician - Lisa Olvera MD Primary Care Physician - AGUSTO OLMSTEAD [...] Follow-Up Appointments Monday 12:30 PM EDT Where: [facility] Monday 10:30 AM EDT Where: [facility] You Need to Schedule the Following Appointments Follow Up with Vern TAVERAS, Lisa Montiel, URL, URO When: Comments: Sched Botox. Where: Medications What How Much When Instructions New cephalexin (Keflex 500 mg Cap) 1 Capsules By Mouth 2 times a day Duration: 3 Days Start one day prior to procedure Pickup at [facility] New estradiol topical (Estrace 0.1 mg/ g Cream) See instructions Refills: 3 apply pea size amount to urethra/ inner vagina 3x/ week x 1 month, then 2x/ week for maintainence Pickup at [facility] Unchanged trospium (trospium 20 mg oral [...] physician if questions or concerns Pharmacy Information [facility]: [address] [place], [place] [phone] Test Results Urnls Dip Stick Auto w/o Microscopy POC 22585 (05/03/2023) Bilirubin Urine Dipstick - Negative Blood Urine Dipstick - Trace-intact Glucose Urine Dipstick - 3+ 1000 mg/dl Ketones Urine Dipstick - Negative Leukocytes Urine Dipstick - Negative Nitrite Urine Dipstick - Negative Protein Urine Dipstick - Trace Specific [place] Urine Dipstick - 1.015 Urine Appearance Urine [...] are saf (more content not included)... Normal [facility] Patient Educationon 05-03-20 Patient Education Obstetrics [...] provider. Document Revised: 12/16/2021 Document Reviewed: 12/16/2021 [employer] Patient Education ? 2022 [employer] [facility] [place] 05-03-2023 Screens [id number]#1.00CD:1 27 [facility] C Urineon 04-20-2023 Bacteria identified [...] test was performed at: [facility], [address] [place] [address], [facility] , , [facility] Comment on above: Performed By: #### 2 [id number] ####[facility] [address] [place] [address] Ambulatory Visit Summaryon 0 04-18-2023 Ambulatory Visit Summary AISLINN WHEELER :1960 Visit Date:04/18/2023 Ambulatory Visit Instructions Your Diagnosis Urinary tract infection Your Care Team Attending Physician - Lisa Olvera MD Primary Care Physician - AGUSTO OLMSTEAD [...] Appointments Monday 10:00 AM EDT With: Lisa Olvera MD Where: [facility] [place] 02-23-2023 Screens [id number]#1.00CD:1 27 [facility] Ambulatory Visit Summaryon 0 02-22-2023 Ambulatory Visit Summary AISLINN WHEELER :1960 Visit Date:02/22/2023 Ambulatory Visit Instructions Your Diagnosis Renal mass Renal cyst Mixed incontinence Feeling of incomplete bladder emptying Glucosuria Tests Performed Urnls Dip Stick Auto w/o Microscopy POC 56200 Your Care Team Attending Physician - Lisa Olvera MD Primary Care Physician - AGUSTO OLMSTEAD [...] Appointments Monday 10:00 AM EDT With: Lisa Olvera MD Where: [facility] Patient Educationon 02-23-20 23 Patient Education Obstetrics and Gynec ology Kegel [...] provider. Document Revised: 12/16/2021 Document Reviewed: 12/16/2021 [employer] Patient Education ? [address] [employer] [facility] [facility] Urology Office/Clinic Noteon 02-22-2023 Urology Office/Clinic [...] and history for this patient from Dr. Olvera and external providers I have reviewed and [...] PSH lap cholecystectomy, open hysterectomy -Continues with binding bench worker after referred last visit 1. Renal [...] and the (more content not included)... Normal [facility] Comment on above: Result Comment: Elec tronically Signed By: Lisa Olvera MD\.br\Date and Time Signed: 02/22/23 10:14 EDT\.br\Electronically Co-Signed By: Marilee Gray\.br\Date and Time Co-Signed: 02/22/23 09:36 EDT Lab Reportson 02-20-2023 Lab Reports [id number]#1.00CD:[address] [facility] RAD - CT Reporton 02-20-2023 RAD - CT Report [id number]#1.00CD:127 [facility] Physician Orderon 02-01-2023 Physician Order [id number]#1.00CD:127 [facility] Consultation Noteon 01-08-20 Consultation Note [id number]#1.00CD:[address] [facility] XR FOOT LT MIN 3 VIEWSon XR FOOT LT MIN 3 VIEWS Normal [facility] MG MAMM SCREEN 3D GURJIT CADon 12-28-2022 MG MAMM SCREEN 3D GURJIT CAD Normal [facility] XR DEXA BONE DENSITYon 12-28 XR DEXA BONE DENSITY Normal [facility] NM STRESS/REST MULTIon 12-15 NM STRESS/REST MULTI Normal [facility] XR FOOT LT MIN 3 VIEWSon XR FOOT LT MIN 3 VIEWS Normal [facility] Physician Referralon 023 Physician Referral [id number]#[id number]:[address] [facility] CT FOOT LT WO CONon 10-28-19 CT FOOT LT WO CON Normal [facility] XR FOOT LT MIN 3 VIEWSon XR FOOT LT MIN 3 VIEWS Normal [facility] XR FOOT LT MIN 3 VIEWSon XR FOOT LT MIN 3 VIEWS Normal [facility] XR FOOT LT MIN 3 VIEWSon XR FOOT LT MIN 3 VIEWS Normal [facility] XR FOOT LT MIN 3 VIEWSon XR FOOT LT MIN 3 VIEWS Normal [facility] XR FOOT LT MIN 3 VIEWSon XR FOOT LT MIN 3 VIEWS Normal [facility] US KIDNEYSon 09-15-2022 US KIDNEYS Normal [facility] XR FOOT LT MIN 3 VIEWSon XR FOOT LT MIN 3 VIEWS Normal [facility] XR FOOT LT MIN 3 VIEWSon XR FOOT LT MIN 3 VIEWS Normal [facility] XR FOOT LT MIN 3 VIEWSon XR FOOT LT MIN 3 VIEWS Normal [facility] CBC AUTO DIFFon 08-03-2022 BASO # 0.0 103/ul Normal 0.0-0.1 [facility] Comment on above: Performed By: #### C BC ####[facility] [address] [address]Dr. Ricardo Rocha Basophils/100 WBC (Bld) 0.5 % Normal 0.2-2.0 [facility] Comment on above: Performed By: #### C BC ####[facility] [address] [place], [place] [address]Dr. Ricardo Rocha EO # 0.1 103/ul Normal 0.0-0.7 [facility] Comment on above: Performed By: #### C BC ####[facility] [address] [place], [place] [address]Dr. Ricardo Aj Eosinophils/100 WBC (Bld) 1.2 % Normal 0.9-7.0 [facility] Comment on above: Performed By: #### C BC ####[facility] [address] [place], [place] [address]Dr. Ricardo Aj Erythrocyte distribution width (RBC) [Ratio] 15.0 % Normal 11.0-15.0 [facility] Comment on above: Performed By: #### C BC ####[facility] [address] [place], [place] [address]Dr. Ricardo Aj Hematocrit (Bld) [Volume fraction] 29.5 % Critically low 36.0-48.0 [facility] Comment on above: Performed By: #### C BC ####[facility] [address] [place], [place] [address]Dr. Ricardo Aj Hemoglobin (Bld) [Mass/Vol] 9.3 g/dL Critically low 12.0-16.0 [facility] Comment on above: Performed By: #### C BC ####[facility] [address] [place], [place] [address]Dr. Ricardo Rocha IG # 0.04 10e3/ul Critically high 0.00-0.03 [facility] Comment on above: Performed By: #### C BC ####[facility] [address] [place], [place] [address]Dr. Ricardo Rocha IG % 0.5 % Normal 0.0-0.5 [facility] Comment on above: Performed By: #### C BC ####[facility] [address] [place], [place] [address]Dr. Ricardo Rocha LYMPH # 1.4 103/ul Normal 1.2-3.8 [facility] Comment on above: Performed By: #### C BC ####[facility] [address] [place] [address]DrIrina Rocha Lymphocytes/100 WBC (Bld) 17.2 % Critically low 20.5-60.0 [facility] Comment on above: Performed By: #### C BC ####[facility] [address] [place] [address]DrIrina Rocha MANUAL DIFF REQ NO Normal [facility] Comment on above: Performed By: #### C BC ####[facility] [address] [place] [address]DrIrina Rocha MCH (RBC) [Entitic mass] 25.2 pg Critically low 26.7-34.0 [facility] Comment on above: Performed By: #### C BC ####[facility] [address] [place], [place] [address]DrIrina Rocha MCHC (RBC) [Mass/Vol] 31.5 g/dL Normal 29.9-35.2 [facility] Comment on above: Performed By: #### C BC ####[facility] [address] [place], [place] [address]DrIrina Rocha MCV (RBC) [Entitic vol] 79.9 fL Critically low 81.0-99.0 [facility] Comment on above: Performed By: #### C BC ####[facility] [address] [place] [address]DrIrina Rocha MONO # 0.6 103/ul Normal 0.3-0.8 [facility] Comment on above: Performed By: #### C BC ####[facility] [address] [place], [place] [address]DrIrina Rocha Monocytes/100 WBC (Bld) 7.6 % Normal 1.7-12.0 [facility] Comment on above: Performed By: #### C BC ####[facility] [address] [place], [place] [address]DrIrina Rocha NEUT # 5.9 103/ul Normal 1.4-6.5 [facility] Comment on above: Performed By: #### C BC ####[facility] [address] [place] [address]Dr. Ricardo Rocha Neutrophils/100 WBC (Bld) 73.0 % Normal 43.0-75.0 [facility] Comment on above: Performed By: #### C BC ####[facility] [address] [place] [address]Dr. Ricardo Rocha Platelet mean volume (Bld) [Entitic vol] 11.4 fL Normal 9.5-13.5 [facility] Comment on above: Performed By: #### C BC ####[facility] [address] [place] [address]Dr. Ricardo Rocha PLT 253 103/ul Normal 150-450 [facility] Comment on above: Performed By: #### C BC ####[facility] [address]ph[address] [place] [address]Dr. Ricardo Rocha RBC 3.69 106/ul Critically low 4.20-5.40 [facility] Comment on above: Performed By: #### C BC ####[facility] Nkepkfhjgj[address] [place], [place] [address]Dr. Ricardo Rocha WBC 8.0 103/ul Normal 4.0-11.0 [facility] Comment on above: Performed By: #### C BC ####[facility] Ajwvhlqvix[address] [place], [place] [address]Dr. Ricardo Rocha CRPon 08-03-2022 CRP 3.1 mg/dL Critically high <=1.0 [facility] Comment on above: Performed By: #### C RP, BMP, URIC ####[facility] Yhhvssqtzj0[address] [place], [place] [address]Dr. Ricardo Rocha CULTURE BLOODon 08-03-2022 Microscopic examination of blood, culture Culture Observations: NO GROWTH AT 5 DAYS. Normal [facility] Comment on above: Performed By: #### B LDCX2 ####[facility] Qdfftpjipj[address] [place] [address]Dr. Ricardo Rocha Microscopic examination of blood, culture Culture Observations: NO GROWTH AT 5 DAYS. Normal [facility] Comment on above: Performed By: #### B LDCX1 ####[facility] Tgypvqxyhc[address] [place], [place] [address]Dr. Ricardo Rocha ER URINE PROFILEon 2 Bilirubin Ql (U) Negative Normal NEGATIVE [facility] Comment on above: Performed By: #### E RUR ####[facility] Acopyoffsw[address] [place], [place] [address]Dr. Ricardo Rocha Clarity (U) CLEAR Normal CLEAR [facility] Comment on above: Performed By: #### E RUR ####[facility] Xrmgdwjaim4[address] [place], [place] [address]Dr. Ricardo Rocha Color (U) LT. YELLOW Normal YELLOW [facility] Comment on above: Performed By: #### E RUR ####[facility] Lprmnfrlrx68[address] [place], [place] [address]Dr. Ricardo Rocha ERUAHD A micrscopic examina tion will be performed if indicated. Normal [facility] Comment on above: Performed By: #### E RUR ####[facility] Bxoqioefri[address] [place], [place] [address]Dr. Ricardo Rocha Glucose Ql (U) 100 mg/dl Abnormal NEGATIVE [facility] Comment on above: Performed By: #### E RUR ####[facility] Ampibpxftj5562[address] [place], [place] [address]Dr. Ricardo Rocha Hemoglobin Ql (U) Negative Normal NEGATIVE [facility] Comment on above: Performed By: #### E RUR ####[facility] Lulbhnakdi4935[address] [place], [place] [address]Dr. Ricardo Rocha Ketones Ql (U) Negative Normal NEGATIVE [facility] Comment on above: Performed By: #### E RUR ####[facility] Nchlyykaje04[address] [place], [place] [address]Dr. Ricardo Rocha LEUKOCYTES Negative Normal NEGATIVE [facility] Comment on above: Performed By: #### E RUR ####[facility] Uchhhfbule[address] [place] [address]Dr. Ricardo Rocha Nitrite Ql (U) Negative Normal NEGATIVE [facility] Comment on above: Performed By: #### E RUR ####[facility] Myqzwkhawk[address] [place], [place] [address]Dr. Nanomarcial Rocha pH (U) 6.0 [pH] Normal 5-9 [facility] Comment on above: Performed By: #### E RUR ####[facility] Qlppnjyuwv55[address] [place], [place] [address]Dr. Ricardo Rocha SPEC GRAVITY 1.010 Normal 1.005-<=1.0 25 [facility] Comment on above: Performed By: #### E RUR ####[facility] Exicaqhcdj6[address] [place], [place] [address]Dr. Ricardo Rocha UA PROTEIN Negative Normal NEGATIVE/ TRACE [facility] Comment on above: Performed By: #### E RUR ####[facility] Pmckcyyghg39[address] [place], [place] [address]Dr. Ricardo Rocha UR MICRO IND NOT INDICATED Normal [facility] Comment on above: Performed By: #### E RUR ####[facility] Onroliohez7666[address] [place], [place] [address]Dr. Ricardo Rocha Urobilinogen Qn (U) 0.2 {Madeleine'U}/dL Normal 0.2 - 1. 0 [facility] Comment on above: Performed By: #### E RUR ####[facility] Fkjuzlnhzp0[address] [place], [place] [address]Dr. Ricardo Rocha LACTATE/LACTIC ACIDon 2021 Lactate [Moles/Vol] 0.5 mmol/L Normal 0.4-1.9 [facility] Comment on above: Performed By: #### L ACT ####[facility] Nsdtlnnwls74[address] [place], [place] [address]Dr. Ricardo Rocha PROF CHEM 8 (BAS METB)on Anion gap [Moles/Vol] 12.9 mmol/L Normal [facility] Comment on above: Performed By: #### C RP, BMP, URIC ####[facility] Fy[address]cgfjkk[address] [place] [address]Dr. Ricardo Rocha Calcium [Mass/Vol] 9.0 mg/dL Normal 8.5-10.1 [facility] Comment on above: Performed By: #### C RP, BMP, URIC ####[facility] Ynhmhyyrei[address] [place] [address]Dr. Ricardo Rocha Chloride [Moles/Vol] 102 mmol/L Normal 98-107 [facility] Comment on above: Performed By: #### C RP, BMP, URIC ####[facility] Zcxqwcizpt23[address] [place] [address]Dr. Ricardo Rocha CO2 [Moles/Vol] 23.9 mmol/L Normal 21.0-32.0 [facility] Comment on above: Performed By: #### C RP, BMP, URIC ####[facility] Viuhckczug7[address] [place], [place] [address]Dr. Ricardo Rocha Creatinine [Mass/Vol] 1.36 mg/dL Critically high 0.55-1.02 [facility] Comment on above: Performed By: #### C RP, BMP, URIC ####[facility] Vcamdqeehw9416[address] [place], [place] [address]Dr. Ricardo Rocha EGFR-AF MALIAN 47 mL/min/1.73m2 Critically low >=60 [facility] Comment on above: Performed By: #### C RP, BMP, URIC ####[facility] Oizgjjvzlg[address] [place], [place] [address]Dr. Ricardo Rocha EGFR-NON AF MALIAN 39 mL/min/1.73m2 Critically low >=60 [facility] Comment on above: Performed By: #### C RP, BMP, URIC ####[facility] Ypqsfazqxf09[address] [place] [address]Dr. Ricardo Rocha Glucose [Mass/Vol] 125 mg/dL Critically high 74-106 [facility] Comment on above: Performed By: #### C RP, BMP, URIC ####[facility] Hgpqofdmbg7[address] [place] [address]Dr. Ricardo Rocha Potassium [Moles/Vol] 4.8 mmol/L Normal 3.5-5.1 [facility] Comment on above: Performed By: #### C RP, BMP, URIC ####[facility] Jazmfsqymc4[address] [place] [address]Dr. Ricardo Rocha Sodium [Moles/Vol] 134 mmol/L Critically low 136-145 [facility] Comment on above: Performed By: #### C RP, BMP, URIC ####[facility] Bguxsfucyx35[address] [place] [address]Dr. Ricardo Rocha Urea nitrogen [Mass/Vol] 22.0 mg/dL Critically high 7.0-18.0 [facility] Comment on above: Performed By: #### C RP, BMP, URIC ####[facility] Vfqpgozmnd57[address] [place] [address]Dr. Ricardo Rocha Urea nitrogen/Creatinine [Mass ratio] 16.2 mg/mg Normal [facility] Comment on above: Performed By: #### C RP, BMP, URIC ####[facility] Rdoiilisfv17[address] [place], [place] [address]Dr. Ricardo Rocha SED [facility] SED RATE 95 mm/hr Critically high <=30 [facility] Comment on above: Performed By: #### S EDR ####[facility] Ntwvawjrvw[address] [place], [place] [address]Dr. Ricardo Rocha URIC ACID SERUMon 08-03-2022 Urate [Mass/Vol] 4.7 mg/dL Normal 2.6-6.0 [facility] Comment on above: Performed By: #### C RP, BMP, URIC ####[facility] [address]ztzjuk[address] [place] [address]Dr. Ricardo Rocha XR FOOT LT MIN 3 VIEWSon XR FOOT LT MIN 3 VIEWS Normal [facility] PROF CHEM 8 (BAS METB)on Anion gap [Moles/Vol] 13.8 mmol/L Normal [facility] Comment on above: Performed By: #### B MP ####[facility] Dhiesqqulg768[address] [place], [place] [address]Dr. Ricardo Rocha Calcium [Mass/Vol] 8.9 mg/dL Normal 8.5-10.1 [facility] Comment on above: Performed By: #### B MP ####[facility] Knlpayvrnp[address] [place] [address]Dr. Ricardo Rocha Chloride [Moles/Vol] 101 mmol/L Normal 98-107 [facility] Comment on above: Performed By: #### B MP ####[facility] Tuvaqpjdri7156 [place] [address]Dr. Ricardo Rocha CO2 [Moles/Vol] 22.8 mmol/L Normal 21.0-32.0 [facility] Comment on above: Performed By: #### B MP ####[facility] Vkpuhcorhm[address] [place], [place] [address]Dr. Ricardo Rocha Creatinine [Mass/Vol] 1.43 mg/dL Critically high 0.55-1.02 [facility] Comment on above: Performed By: #### B MP ####[facility] Oripwdpfgm[address] [place], [place] [address]Dr. Ricardo Rocha EGFR-AF MALIAN 45 mL/min/1.73m2 Critically low >=60 [facility] Comment on above: Performed By: #### B MP ####[facility] Purdpdvpkh64[address] [place], [place] [address]Dr. Ricardo Rocha EGFR-NON AF MALIAN 37 mL/min/1.73m2 Critically low >=60 [facility] Comment on above: Performed By: #### B MP ####[facility] Czhcynnbgo8[address] [place] [address]Dr. Ricardo Rocha Glucose [Mass/Vol] 279 mg/dL Critically high 74-106 [facility] Comment on above: Performed By: #### B MP ####[facility] Busroxvfuv24[address] [place], [place] [address]Dr. Ricardo Rocha Potassium [Moles/Vol] 4.6 mmol/L Normal 3.5-5.1 [facility] Comment on above: Performed By: #### B MP ####[facility] Kjioqnekit[address] [place] [id number]. Ricardo Rocha Sodium [Moles/Vol] 133 mmol/L Critically low 136-145 [facility] Comment on above: Performed By: #### B MP ####[facility] Bapnmlgful4[address] [place], [place] [address]Dr. Ricardo Rocha Urea nitrogen [Mass/Vol] 24.0 mg/dL Critically high 7.0-18.0 [facility] Comment on above: Performed By: #### B MP ####[facility] Oiurasxgwz[address] [place], [place] [address]Dr. Ricardo Rocha Urea nitrogen/Creatinine [Mass ratio] 16.8 mg/mg Normal [facility] Comment on above: Performed By: #### B MP ####[facility] Ibwhqdnevd8104[address] [place], [place] [address]Dr. Ricardo Rocha ACID FAST SMEAR AND CXon Acid Fast Culture Negative Normal [facility] Comment on above: Result Comment: No a amilcar fast bacilli isolated after 6 weeks. Performed By: #### A FB ####[facility] Phcayeadvp6203[address] [place], [place] [address]Dr. Ricardo Rocha Acid Fast Smear Negative Normal [facility] Comment on above: Performed By: #### A FB ####[facility] Gulxxfjrcj164[address] [place], [place] [address]Dr. Ricardo Rocha AF[employer] Specimen Processing Direct Inoculation Normal [facility] Comment on above: Performed By: #### A FB ####[facility] Dozhwtvuvb39[address] [place], [place] [address]Dr. Ricardo Rocha AF[employer] Specimen Processing Tissue Grinding Normal [facility] Comment on above: Performed By: #### A FB ####[facility] Nacbwtsalj[address] [place], [place] [address]Dr. Ricardo Rocha FUNGAL CULTUREon 07-11-2022 Fungus (Mycology) Culture Final report Normal [facility] Comment on above: Performed By: #### C XFUN ####[facility] Pfxldaybua0636[address] [place], [place] [address]Dr. Ricardo Rocha Fungus Stain Final report Normal [facility] Comment on above: Performed By: #### C XFUN ####[facility] Yuohbzmdwj6[address] [place], [place] [address]Dr. Ricardo Rocha Result 1 Comment Normal [facility] Comment on above: Result Comment: AAYUSH/ Calcofluor preparation: no fungus observed. Performed By: #### C XFUN ####[facility] Qvzsgxfzzl5094[address] [place], [place] [address]Dr. Ricardo Rocha Result Comment: No y east or mold isolated after 4 weeks. PROF CHEM 8 (BAS METB)on Anion gap [Moles/Vol] 15.1 mmol/L Normal [facility] Comment on above: Performed By: #### B MP ####[facility] Cldpoealnp9[address] [place], [place] [address]Dr. Ricardo Rocha Calcium [Mass/Vol] 9.0 mg/dL Normal 8.5-10.1 [facility] Comment on above: Performed By: #### B MP ####[facility] Beaxwszwge2793[address] [place], [place] [address]Dr. Ricardo Rocha Chloride [Moles/Vol] 101 mmol/L Normal 98-107 [facility] Comment on above: Performed By: #### B MP ####[facility] Ncvsraxgpt8814[address] [place], [place] [address]Dr. Ricardo Rocha CO2 [Moles/Vol] 18.5 mmol/L Critically low 21.0-32.0 [facility] Comment on above: Performed By: #### B MP ####[facility] Ukcdhkgepu7684[address] [place], [place] [address]DrIrina Rocha Creatinine [Mass/Vol] 2.05 mg/dL Critically high 0.55-1.02 [facility] Comment on above: Performed By: #### B MP ####[facility] Rqfdcxfvgc[address] [place], [place] [address]DrIrina Rocha EGFR-AF MALIAN 30 mL/min/1.73m2 Critically low >=60 [facility] Comment on above: Performed By: #### B MP ####[facility] Optpxnpudt4665[address] [place], [place] [address]Dr. Nanomarcial Aj EGFR-NON AF MALIAN 24 mL/min/1.73m2 Critically low >=60 [facility] Comment on above: Performed By: #### B MP ####[facility] Nwylrxuvot9[address] [place], [place] [address]Dr. Nanomarcial Aj Glucose [Mass/Vol] 134 mg/dL Critically high 74-106 T [facility] Comment on above: Performed By: #### B MP ####[facility] Hceduwppqp9[address] [place], [place] [address]Dr. Ricardo Rocha Potassium [Moles/Vol] 5.6 mmol/L Critically high 3.5-5.1 [facility] Comment on above: Performed By: #### B MP ####[facility] Qdrxajqitf4[address] [place], [place] [address]Dr. Ricardo Rocha Sodium [Moles/Vol] 129 mmol/L Critically low 136-145 [facility] Comment on above: Performed By: #### B MP ####[facility] Btgugvfomm[address] [place], [place] [address]Dr. Ricardo Rocha Urea nitrogen [Mass/Vol] 57.0 mg/dL Critically high 7.0-18.0 [facility] Comment on above: Performed By: #### B MP ####[facility] Tagbqpybvr5036[address] [place], [place] [address]Dr. Ricardo Rocha Urea nitrogen/Creatinine [Mass ratio] 27.8 mg/mg Normal [facility] Comment on above: Performed By: #### B MP ####[facility] Qanxyhisry[address] [place], [place] [address]Dr. Nanomarcial Aj CBC AUTO DIFFon 07-06-2022 BASO # 0.0 103/ul Normal 0.0-0.1 [facility] Comment on above: Performed By: #### C BC ####[facility] Afpwfibmae6162[address] [place], [place] [address]Dr. Ricardo Rocha Basophils/100 WBC (Bld) 0.6 % Normal 0.2-2.0 [facility] Comment on above: Performed By: #### C BC ####[facility] [address] [place] [id number]. Ricardo Rocha EO # 0.1 103/ul Normal 0.0-0.7 [facility] Comment on above: Performed By: #### C BC ####[facility] Btzlsbbngi[address] [place] [address]Dr. Ricardo Rocha Eosinophils/100 WBC (Bld) 1.7 % Normal 0.9-7.0 [facility] Comment on above: Performed By: #### C BC ####[facility] Spyvzzypqv4669[address] [place], [place] [address]Dr. Ricardo Rocha Erythrocyte distribution width (RBC) [Ratio] 15.2 % Critically high 11.0-15.0 [facility] Comment on above: Performed By: #### C BC ####[facility] Wbzrnfgame8[address] [place], [place] [address]Dr. Nanomarcial Rocha Hematocrit (Bld) [Volume fraction] 34.6 % Critically low 36.0-48.0 [facility] Comment on above: Performed By: #### C BC ####[facility] Ebidpiitft9[address] [place], [place] [address]Dr. Ricardo Rocha Hemoglobin (Bld) [Mass/Vol] 10.5 g/dL Critically low 12.0-16.0 [facility] Comment on above: Performed By: #### C BC ####[facility] [address]qexrztyfr[address] [place] [address]Dr. Ricardo Rocha IG # 0.01 10e3/ul Normal 0.00-0.03 [facility] Comment on above: Performed By: #### C BC ####[facility] Ybxtuftekb[address] [place], [place] [address]Dr. Nanomarcial Rocha IG % 0.2 % Normal 0.0-0.5 [facility] Comment on above: Performed By: #### C BC ####[facility] Logmhgcmkn[address] [place], [place] [address]Dr. Nanomarcial Rocha LYMPH # 2.4 103/ul Normal 1.2-3.8 [facility] Comment on above: Performed By: #### C BC ####[facility] [address]fqf[address] [place] [address]Dr. Ricardo Rocha Lymphocytes/100 WBC (Bld) 44.4 % Normal 20.5-60.0 [facility] Comment on above: Performed By: #### C BC ####[facility] [address]acyill[address] [place] [address]Dr. Ricardo Aj MANUAL DIFF REQ NO Normal [facility] Comment on above: Performed By: #### C BC ####[facility] Yewlngdupe[address] [place] [address]Dr. Ricardo Rocha MCH (RBC) [Entitic mass] 25.0 pg Critically low 26.7-34.0 [facility] Comment on above: Performed By: #### C BC ####[facility] Y[address]hfesyp46[address] [place] [address]Dr. Ricardo Aj MCHC (RBC) [Mass/Vol] 30.3 g/dL Normal 29.9-35.2 [facility] Comment on above: Performed By: #### C BC ####[facility] Tqjaokhxkg[address] [place] [address]Dr. Ricardo Aj MCV (RBC) [Entitic vol] 82.4 fL Normal 81.0-99.0 [facility] Comment on above: Performed By: #### C BC ####[facility] X[address]lysyw[address] [place] [address]Dr. Nanomarcial Aj MONO # 0.3 103/ul Normal 0.3-0.8 [facility] Comment on above: Performed By: #### C BC ####[facility] Vguerwnwfz39[address] [place] [address]Dr. Ricardo Aj Monocytes/100 WBC (Bld) 5.1 % Normal 1.7-12.0 [facility] Comment on above: Performed By: #### C BC ####[facility] Fqezdftofw87[address] [place] [address]Dr. Ricardo Rocha NEUT # 2.5 103/ul Normal 1.4-6.5 [facility] Comment on above: Performed By: #### C BC ####[facility] Gbrisroamq[address] [place] [address]Dr. Ricardo Rocha Neutrophils/100 WBC (Bld) 48.0 % Normal 43.0-75.0 [facility] Comment on above: Performed By: #### C BC ####[facility] Npsfhcewdl9980 [place] [id number]. Ricardo Rocha Platelet mean volume (Bld) [Entitic vol] 10.7 fL Normal 9.5-13.5 [facility] Comment on above: Performed By: #### C BC ####[facility] Mrjutessnp79[address] [place] [id number]. Ricardo Rocha PLT 261 103/ul Normal 150-450 [facility] Comment on above: Performed By: #### C BC ####[facility] Xnvidsvlme6[address] [place] [id number]. Ricardo Rocha RBC 4.20 106/ul Normal 4.20-5.40 [facility] Comment on above: Performed By: #### C BC ####[facility] Z[address]ifuhiz[address] [place] [id number]. Ricardo Rocha WBC 5.3 103/ul Normal 4.0-11.0 [facility] Comment on above: Performed By: #### C BC ####[facility] [address]tsxfoyxny70[address] [place] [id number]. Ricardo Rocha GLYCOHEMOGLOBIN A1Con 2021 ADA RECOMMENDATION SEE BELOW Normal [facility] Comment on above: Result Comment: ADA RECOMMENDED LIMIT 4.0 - 6.0 ADA THERAPEUTIC TARGET < 7.0 ACTION SUGGESTED > 7.0 Performed By: #### A 1C ####[facility] Dciiohsyak88[address] [place] [id number]. Ricardo Rocha Glucose [Mass/Vol] 289 mg/dL Normal [facility] Comment on above: Performed By: #### A 1C ####[facility] Ppyqrndkqf060[address] [place] [address]Dr. Ricardo Rocha HbA1c (Bld) [Mass fraction] 11.7 % Critically high 4.5-6.2 [facility] Comment on above: Performed By: #### A 1C ####[facility] Yrvujdyyyd[address] [place] [id number]. Ricardo Rocha LIPID PROFILEon 07-06-2022 CHOL-HDL RATIO NORM SEE BELOW Normal [facility] Comment on above: Result Comment: 3.3 - 4.4 LOW RISK 4.4 - 7.1 AVERAGE RISK 7.1 - 11.0 MODERATE RISK >11.0 HIGH RISK Performed By: #### T SH, CMP, LIPID ####[facility] Vhldwzzjtd94[address] [place] [id number]. Ricardo Rocha Cholesterol [Mass/Vol] 284 mg/dL Critically high <=200 [facility] Comment on above: Performed By: #### T ANTONIA CMP, LIPID ####[facility] Htctoqmxax54[address] [place] [id number]. Ricardo Rocha Cholesterol in HDL [Mass/Vol] 40 mg/dL Normal 40-60 [facility] Comment on above: Performed By: #### T ANTONIA CMP, LIPID ####[facility] Uurgjuyqxh[address] [place] [id number]. Ricardo Rocha Cholesterol in LDL [Mass/Vol] 167.8 mg/dL Normal [facility] Comment on above: Performed By: #### T ANTONIA CMP, LIPID ####[facility] Ujjciodawd[address] [place] [id number]. Ricardo Rocha Cholesterol.total/Cho lesterol in HDL [Mass ratio] 7.1 {ratio} Normal [facility] Comment on above: Performed By: #### T ANTONIA, CMP, LIPID ####[facility] Zwzrzylxsh[address] [place] [id number]. Nanolan Rocha HDL NORMAL > or = 60 mg/dl - LO W CARDIOVASCULAR RISK <40 mg/dl - HIGH CARDIOVASCULAR RISK Normal [facility] Comment on above: Performed By: #### T ANTONIA, CMP, LIPID ####[facility] Fmjydsaath26[address] [place] [id number]. Ricardo Rocha LDL CALC NORMAL SEE BELOW Normal [facility] Comment on above: Result Comment: <100 mg/dl OPTIMAL 100 - 129 mg/dl NEAR OR ABOVE OPTIMAL 130 - 159 mg/dl BORDERLINE HIGH 160 - 189 mg/dl HIGH >190 mg/dl VERY HIGH Performed By: #### T SH, CMP, LIPID ####[facility] Cgmoxqtleq70[address] [place] [address]Dr. Ricardo Rocha Triglyceride [Mass/Vol] 381 mg/dL Critically high <=150 [facility] Comment on above: Performed By: #### T SH, CMP, LIPID ####[facility] [address]efqhpcedt[address] [place] [address]Dr. Ricardo Rocha VLDL CALC 76.2 mg/dL Normal [facility] Comment on above: Performed By: #### T SH, CMP, LIPID ####[facility] Ezcohexkoc[address] [place] [address]Dr. Ricardo Rocha MICROALBUMIN, RAND URon 11- mALB <1.3 Normal <=30.0 [facility] Comment on above: Performed By: #### M ALBR ####[facility] Ymceuwiqvj[address] [place] [address]Dr. Ricardo Rocha PROF 14(COMP METB)on 07-06- 022 Albumin [Mass/Vol] 3.3 g/dL Critically low 3.4-5.0 [facility] Comment on above: Performed By: #### T SH, CMP, LIPID ####[facility] [address]wpsckfour[address] [place] [address]Dr. Ricardo Rocha Albumin/Globulin [Mass ratio] 0.5 {ratio} Normal [facility] Comment on above: Performed By: #### T SH, CMP, LIPID ####[facility] [address] [place] [address]Dr. Ricardo Rocha ALP [Catalytic activity/Vol] 129 U/L Critically high 46-116 [facility] Comment on above: Performed By: #### T SH, CMP, LIPID ####[facility] E[address]vlmuyd[address] [place] [address]Dr. Ricardo Rocha ALT [Catalytic activity/Vol] 22 U/L Normal 14-59 [facility] Comment on above: Performed By: #### T SH, CMP, LIPID ####[facility] Nm[address] [place] [id number]. Ricardo Rocha Anion gap [Moles/Vol] 16.1 mmol/L Normal [facility] Comment on above: Performed By: #### T SH, CMP, LIPID ####[facility] Iasdhrv[address] [place] [phone]. Ricardo Rocha AST [Catalytic activity/Vol] 22 U/L Normal 15-37 [facility] Comment on above: Performed By: #### T SH, CMP, LIPID ####[facility] Eysxjelzxe[address] [place] [phone]. Ricardo Rocha Bilirubin [Mass/Vol] 0.2 mg/dL Normal 0.2-1.0 [facility] Comment on above: Performed By: #### T SH, CMP, LIPID ####[facility] [address]tf[address] [place] [address]Dr. Ricardo Rocha Calcium [Mass/Vol] 9.4 mg/dL Normal 8.5-10.1 [facility] Comment on above: Performed By: #### T SH, CMP, LIPID ####[facility] Cdlcjh[address]zbs[address] [place] [phone]. Ricardo Rocha Chloride [Moles/Vol] 102 mmol/L Normal 98-107 [facility] Comment on above: Performed By: #### T SH, CMP, LIPID ####[facility] Wbevntldii23[address] [place] [phone]. Ricardo Rocha CO2 [Moles/Vol] 18.4 mmol/L Critically low 21.0-32.0 [facility] Comment on above: Performed By: #### T SH, CMP, LIPID ####[facility] Njt[address]tsfsy[address] [place] [phone]. Ricardo Rocha Creatinine [Mass/Vol] 2.01 mg/dL Critically high 0.55-1.02 [facility] Comment on above: Performed By: #### T SH, CMP, LIPID ####[facility] [address]umrlov[address]ts[address] [place] [phone]. Ricardo Rocha EGFR-AF MALIAN 30 mL/min/1.73m2 Critically low >=60 [facility] Comment on above: Performed By: #### T SH, CMP, LIPID ####[facility] [address] [place] [address]Dr. Ricardo Rocha EGFR-NON AF MALIAN 25 mL/min/1.73m2 Critically low >=60 [facility] Comment on above: Performed By: #### T SH, CMP, LIPID ####[facility] Btzupbyzep[address] [place] [address]Dr. Ricardo Rocha Globulin (S) [Mass/Vol] 6.3 g/dL Normal [facility] Comment on above: Performed By: #### T SH, CMP, LIPID ####[facility] Gzfiaoldwd[address] [place], [place] [address]Dr. Ricardo Rocha Glucose [Mass/Vol] 118 mg/dL Critically high 74-106 [facility] Comment on above: Performed By: #### T SH, CMP, LIPID ####[facility] Kuxwlfcxic[address] [place], [place] [address]Dr. Ricardo Rocha Potassium [Moles/Vol] 5.5 mmol/L Critically high 3.5-5.1 [facility] Comment on above: Performed By: #### T SH, CMP, LIPID ####[facility] Vfggedrnsj[address] [place], [place] [address]Dr. Ricardo Rocha Protein [Mass/Vol] 9.6 g/dL Critically high 6.4-8.2 [facility] Comment on above: Performed By: #### T SH, CMP, LIPID ####[facility] X[address]loekyfl[address] [place] [address]Dr. Ricardo Rocha Sodium [Moles/Vol] 131 mmol/L Critically low 136-145 [facility] Comment on above: Performed By: #### T SH, CMP, LIPID ####[facility] Xnbsmympvn[address] [place] [address]Dr. Ricardo Rocha Urea nitrogen [Mass/Vol] 45.0 mg/dL Critically high 7.0-18.0 [facility] Comment on above: Performed By: #### T SH, CMP, LIPID ####[facility] Zlzzhsklmt[address] [place] [phone]. Ricardo Rocha Urea nitrogen/Creatinine [Mass ratio] 22.4 mg/mg Normal [facility] Comment on above: Performed By: #### T SH, CMP, LIPID ####[facility] Lvjxhbelug[address] [place] [phone]. Ricardo Rocha TSHon 07-06-2022 TSH 1.178 uIU/mL Normal 0.358-3.740 [facility] Comment on above: Performed By: #### T SH, CMP, LIPID ####[facility] Ikejlrwgps[address] [place] [phone]. Ricardo Rocha UA RANDOM W/MICROSCOPICon BACTERIA NONE SEEN Normal NONE SEEN [facility] Comment on above: Performed By: #### U AMIC ####[facility] Wmbngtzxar[address] [place], [place] [address]Dr. Ricardo Rocha Bilirubin Ql (U) Negative Normal NEGATIVE [facility] Comment on above: Performed By: #### U AMIC ####[facility] Zvwwzkpvtv[address] [place], [place] [address]Dr. Ricardo Rocha CAST NONE SEEN Normal NONE SEEN [facility] Comment on above: Performed By: #### U AMIC ####[facility] T[address]kqetdot[address] [place] [address]Dr. Ricardo Rocha Clarity (U) CLEAR Normal CLEAR [facility] Comment on above: Performed By: #### U AMIC ####[facility] [address]bt[address]qllj[address] [place] [address]Dr. Ricardo Rocha Color (U) LT. YELLOW Normal YELLOW [facility] Comment on above: Performed By: #### U AMIC ####[facility] Ihonqcpikt[address] [place], [place] [address]Dr. Ricardo Rocha Crystals LM Nom (Urine sed) NONE SEEN Normal NONE SEEN [facility] Comment on above: Performed By: #### U AMIC ####[facility] [address]hxvsdolg[address] [place], [place] [address]Dr. Ricardo Rocha Epithelial cells LM Ql (Urine sed) NONE SEEN Normal NONE SEEN /RARE [facility] Comment on above: Performed By: #### U AMIC ####[facility] V[address]dpzod[address] [place] [address]Dr. Ricardo Rocha Glucose Ql (U) Negative Normal NEGATIVE [facility] Comment on above: Performed By: #### U AMIC ####[facility] F[address]odkhvgc[address] [place] [address]Dr. Ricardo Rocha Hemoglobin Ql (U) Negative Normal NEGATIVE [facility] Comment on above: Performed By: #### U AMIC ####[facility] Uvdr[address]wezde82[address] [place] [address]Dr. Ricardo Rocha Ketones Ql (U) Negative Normal NEGATIVE [facility] Comment on above: Performed By: #### U AMIC ####[facility] W[address]oulqj[address] [place] [address]Dr. Ricardo Rocha LEUKOCYTES Negative Normal NEGATIVE [facility] Comment on above: Performed By: #### U AMIC ####[facility] V[address]wvgbmkl[address] [place], [place] [address]Dr. Ricardo Rocha MUCOUS NONE SEEN Normal NONE SEEN [facility] Comment on above: Performed By: #### U AMIC ####[facility] Hfrudeshrj[address] [place], [place] [address]Dr. Ricardo Rocha Nitrite Ql (U) Negative Normal NEGATIVE [facility] Comment on above: Performed By: #### U AMIC ####[facility] Glmvaqtgiq[address] [place], [place] [address]Dr. Ricardo Rocha pH (U) 5.5 [pH] Normal 5-9 [facility] Comment on above: Performed By: #### U AMIC ####[facility] Dlczrpovrg[address] [place], [place] [address]Dr. Ricardo Rocha RBC NONE SEEN Abnormal 0-2 [facility] Comment on above: Performed By: #### U AMIC ####[facility] [address]ayv[address] [place] [address]Dr. Ricardo Rocha SPEC GRAVITY 1.020 Normal 1.005-<=1.0 25 [facility] Comment on above: Performed By: #### U AMIC ####[facility] E[address]lje[address] [place] [address]Dr. Ricardo Rocha UA PROTEIN Negative Normal NEGATIVE/ TRACE [facility] Comment on above: Performed By: #### U AMIC ####[facility] [address]tr[address] [place] [phone]. Ricardo Rocha Urobilinogen Qn (U) 0.2 {Madeleine'U}/dL Normal 0.2 - 1. 0 [facility] Comment on above: Performed By: #### U AMIC ####[facility] [address]qvev[address] [place], [place] [address]Dr. Ricardo Rocha WBC NONE SEEN Normal NONE SEEN [facility] Comment on above: Performed By: #### U AMIC ####[facility] [address]fgas[address] [place] [address]Dr. Ricardo Rocha CBC W MANUAL DIFFon 06-16-20 22 ATYPICAL LYMPH # Normal [facility] Comment on above: Performed By: #### C BCMAN ####[facility] [address]ukjb[address]fj[address] [place], [place] [address]Dr. Ricardo Rocha ATYPICAL LYMPH % Normal [facility] Comment on above: Performed By: #### C BCRED ####[facility] [address]ro[address] [place] [address]Dr. Ricardo Rocha BAND # 0.2 103/ul Normal 0.0-0.3 [facility] Comment on above: Performed By: #### C BCMAN ####[facility] [address] [place] [address]Dr. Ricardo Rocha BAND % 2 % Normal 0-5 [facility] Comment on above: Performed By: #### C BCMAN ####[facility] [address]ld[address]zub[address] [place], [place] [address]Dr. Ricardo Rocha BASOM # 0.00 103/ul Normal 0.00-0.10 [facility] Comment on above: Performed By: #### C BCRED ####[facility] [address]kdibcqqy[address] [place], [place] [address]Dr. Ricardo Rocha BASOM % 0.0 % Critically low 0.2-2.0 [facility] Comment on above: Performed By: #### C BCRED ####[facility] [address] [place] [address]Dr. Ricardo Rocha BLAST # Normal [facility] Comment on above: Performed By: #### C BCRED ####[facility] Nakuh[address] [place] [address]Dr. Ricardo Rocha BLAST % Normal [facility] Comment on above: Performed By: #### C DWAINE ####[facility] Mw[address]trmzsv[address] [place] [address]Dr. Ricardo Rocha CORRECTED WBC Normal 4.0-11.0 [facility] Comment on above: Performed By: #### C DWAINE ####[facility] J[address]axaf[address] [place] [address]Dr. Ricardo Rocha EOS # 0.11 103/ul Normal 0.00-0.70 [facility] Comment on above: Performed By: #### C DWAINE ####[facility] Orkgroivzq1076 [place] [address]Dr. Ricardo Rocha EOS% 1.0 % Normal 0.9-7.0 [facility] Comment on above: Performed By: #### C DWAINE ####[facility] Vsfumdvpql99[address] [place] [address]Dr. Ricardo Rocha HCT 24.2 % Critically low 36.0-48.0 [facility] Comment on above: Performed By: #### C BCRED ####[facility] Yvxkvphqay27[address] [place] [address]Dr. Ricardo Rocha HGB 7.9 g/dl Critically low 12.0-16.0 [facility] Comment on above: Performed By: #### C BCRED ####[facility] Hyxlhbewef15[address] [place] [address]Dr. Ricardo Rocha LYMPHM # 1.81 103/ul Normal 1.20-3.80 [facility] Comment on above: Performed By: #### C DWAINE ####[facility] [address] [place], [place] [address]Ln. Ricardo Rocha LYMPHM% 16.0 % Critically low 20.5-60.0 [facility] Comment on above: Performed By: #### C DWAINE ####[facility] [address]orm[address] [place], [place] [address]Yq. Ricardo Rocha MCH 25.2 pg Critically low 26.7-34.0 [facility] Comment on above: Performed By: #### C DWAINE ####[facility] [address] [place] [address]Dr. Ricardo Rocha MCHC 32.6 g/dl Normal 29.9-35.2 [facility] Comment on above: Performed By: #### C DWAINE ####[facility] Jvbzvwcnec[address] [place] [address]Dr. Ricardo Rocha MCV 77.3 fL Critically low 81.0-99.0 [facility] Comment on above: Performed By: #### C DWAINE ####[facility] Pulcgtywtr9[address] [place] [address]Dr. Ricardo Rocha METAMYELOCYTE # 0.5 103/ul Normal [facility] Comment on above: Performed By: #### C DWAINE ####[facility] Se[address]uhzrl[address] [place] [address]Dr. Ricardo Rocha METAMYELOCYTE % 4 % Normal [facility] Comment on above: Performed By: #### C DWAINE ####[facility] Qytqwjmcfq6591 [place] [address]Dr. Ricardo Rcoha MONOM# 0.45 103/ul Normal 0.30-0.80 [facility] Comment on above: Performed By: #### C DWAINE ####[facility] H[address]oyufhdp02[address] [place] [address]Dr. Ricardo Rocha MONOM% 4.0 % Normal 1.7-12.0 [facility] Comment on above: Performed By: #### C DWAINE ####[facility] E[address]oghkruz[address] [place] [address]Dr. Ricardo Rocha MPV 10.4 fL Normal 9.5-13.5 [facility] Comment on above: Performed By: #### C DWAINE ####[facility] Erqfdnhbiw6[address] [place] [address]Dr. Ricardo Rocha MYELOCYTE # 0.5 103/ul Normal [facility] Comment on above: Performed By: #### C DWAINE ####[facility] Lmziokkekd9[address] [place] [address]Dr. Ricardo Rocha MYELOCYTE % 4 % Normal [facility] Comment on above: Performed By: #### C DWAINE ####[facility] V[address]dzumfjt99[address] [place] [address]Dr. Ricardo Rocha NRBC Normal [facility] Comment on above: Performed By: #### C DWAINE ####[facility] Sdfmgkhuzy27[address] [place] [address]Dr. Ricardo Rocha PLT 325 103/ul Normal 150-450 [facility] Comment on above: Performed By: #### C DWAINE ####[facility] Zmdcxjkxza5437 [place] [address]Dr. Ricardo Rocha RBC 3.13 106/ul Critically low 4.20-5.40 [facility] Comment on above: Performed By: #### C DWAINE ####[facility] Nxrofbxfbo0648 [place] [address]Dr. Ricardo Rocha RDW 13.7 % Normal 11.0-15.0 [facility] Comment on above: Performed By: #### C DWAINE ####[facility] Bwuzhgzgoe[address] [place] [address]Dr. Ricardo Rocha SEG # 7.80 103/ul Critically high 1.40-6.50 [facility] Comment on above: Performed By: #### C DWAINE ####[facility] Jhsvpvwlmc1920 [place] [address]Dr. Ricardo Rocha SEG % 69.0 % Normal 43.0-75.0 [facility] Comment on above: Performed By: #### Esteban ISIDRO ####[facility] Pdukivejeu79[address] [place] [address]Dr. Ricardo Rocha WBC 11.3 103/ul Critically high 4.0-11.0 [facility] Comment on above: Performed By: #### C BCMAN ####[facility] Qgsuiocrvv8220 [place] [address]DrIrina Rocha PROF 14(COMP METB)on 06-16- 022 Albumin [Mass/Vol] 1.7 g/dL Critically low 3.4-5.0 [facility] Comment on above: Performed By: #### C MP ####[facility] Efsksyndmc78[address] [place] [address]Dr. Ricardo Rocha Albumin/Globulin [Mass ratio] 0.4 {ratio} Normal [facility] Comment on above: Performed By: #### C MP ####[facility] Bcacdmafcb[address] [place], [place] [address]Dr. Ricardo Rocha ALP [Catalytic activity/Vol] 174 U/L Critically high 46-116 [facility] Comment on above: Performed By: #### C MP ####[facility] Imjmsbklxq[address] [place], [place] [address]Dr. Ricardo Rocha ALT [Catalytic activity/Vol] 14 U/L Normal 14-59 [facility] Comment on above: Performed By: #### C MP ####[facility] Tihggdigbg[address] [place], [place] [address]DrIrina Rocha Anion gap [Moles/Vol] 10.8 mmol/L Normal [facility] Comment on above: Performed By: #### C MP ####[facility] Pzpmqowopc[address] [place], [place] [address]Dr. Ricardo Rocha AST [Catalytic activity/Vol] 13 U/L Critically low 15-37 [facility] Comment on above: Performed By: #### C MP ####[facility] Fhujoajcrz[address] [place], [place] [address]DrIrina Rocha Bilirubin [Mass/Vol] 0.3 mg/dL Normal 0.2-1.0 [facility] Comment on above: Performed By: #### C MP ####[facility] Bnulptwgdz69[address] [place], [place] [address]Dr. Ricardo Rocha Calcium [Mass/Vol] 8.2 mg/dL Critically low 8.5-10.1 [facility] Comment on above: Performed By: #### C MP ####[facility] Sqfothymrx7085 [place] [address]Dr. Ricardo Rocha Chloride [Moles/Vol] 104 mmol/L Normal 98-107 [facility] Comment on above: Performed By: #### C MP ####[facility] Ypomyeffia[address] [place], [place] [address]Dr. Ricardo Rocha CO2 [Moles/Vol] 22.4 mmol/L Normal 21.0-32.0 [facility] Comment on above: Performed By: #### C MP ####[facility] Rxkjifdkkk[address] [place], [place] [address]Dr. Ricardo Rocha Creatinine [Mass/Vol] 1.29 mg/dL Critically high 0.55-1.02 [facility] Comment on above: Performed By: #### C MP ####[facility] Uxppuysges[address] [place], [place] [address]Dr. Ricardo Rocha EGFR-AF MALIAN 50 mL/min/1.73m2 Critically low >=60 [facility] Comment on above: Performed By: #### C MP ####[facility] Oalpdsgpbr[address] [place], [place] [address]Dr. Ricardo Rocha EGFR-NON AF MALIAN 42 mL/min/1.73m2 Critically low >=60 [facility] Comment on above: Performed By: #### C MP ####[facility] Hvgxnjgtly[address] [place], [place] [address]Dr. Ricardo Rocha Globulin (S) [Mass/Vol] 4.8 g/dL Normal [facility] Comment on above: Performed By: #### C MP ####[facility] Medfqdvcox4[address] [place], [place] [address]Dr. Ricardo Rocha Glucose [Mass/Vol] 262 mg/dL Critically high 74-106 [facility] Comment on above: Performed By: #### C MP ####[facility] Aiqtuyriti6[address] [place], [place] [address]Dr. Ricardo Rocha Potassium [Moles/Vol] 3.2 mmol/L Critically low 3.5-5.1 [facility] Comment on above: Performed By: #### C MP ####[facility] Tnspdcyvxg[address] [place], [place] [address]Dr. Ricardo Rocha Protein [Mass/Vol] 6.5 g/dL Normal 6.4-8.2 [facility] Comment on above: Performed By: #### C MP ####[facility] Jquhuwfmyx6[address] [place], [place] [address]Dr. Ricardo Aj Sodium [Moles/Vol] 134 mmol/L Critically low 136-145 [facility] Comment on above: Performed By: #### C MP ####[facility] Ucdhpootjg[address] [place], [place] [address]Dr. Ricardo Aj Urea nitrogen [Mass/Vol] 20.0 mg/dL Critically high 7.0-18.0 [facility] Comment on above: Performed By: #### C MP ####[facility] Qiumzzvoai[address] [place], [place] [address]Dr. Ricardo Aj Urea nitrogen/Creatinine [Mass ratio] 15.5 mg/mg Normal [facility] Comment on above: Performed By: #### C MP ####[facility] Daoyeljrwn[address] [place], [place] [address]Dr. Ricardo Aj CBC AUTO DIFFon 06-15-2022 BASO # 0.1 103/ul Normal 0.0-0.1 [facility] Comment on above: Performed By: #### C BC ####[facility] Ojnpffkzjq[address] [place], [place] [address]Dr. Ricardo Aj Basophils/100 WBC (Bld) 0.7 % Normal 0.2-2.0 [facility] Comment on above: Performed By: #### C BC ####[facility] Oyoqrygyml[address] [place], [place] [address]Dr. Ricardo Rocha EO # 0.1 103/ul Normal 0.0-0.7 [facility] Comment on above: Performed By: #### C BC ####[facility] Zfwiqbqtos18[address] [place] [address]Dr. Ricardo Rocha Eosinophils/100 WBC (Bld) 0.7 % Critically low 0.9-7.0 [facility] Comment on above: Performed By: #### C BC ####[facility] Dvhzpejvmw8903 [place] [address]Dr. Ricardo Rocha Erythrocyte distribution width (RBC) [Ratio] 13.7 % Normal 11.0-15.0 [facility] Comment on above: Performed By: #### C BC ####[facility] Wfjadftjbp3540 [place] [address]Dr. Ricardo Rocha Hematocrit (Bld) [Volume fraction] 26.7 % Critically low 36.0-48.0 [facility] Comment on above: Performed By: #### C BC ####[facility] [address]enjbjyevi[address] [place] [address]Dr. Ricardo Rocha Hemoglobin (Bld) [Mass/Vol] 8.4 g/dL Critically low 12.0-16.0 [facility] Comment on above: Performed By: #### C BC ####[facility] Kwfnvchvny5[address] [place] [address]Dr. Ricardo Rocha IG # 0.83 10e3/ul Critically high 0.00-0.03 [facility] Comment on above: Performed By: #### C BC ####[facility] Ow[address]orawkn[address] [place] [address]Dr. Ricardo Rocha IG % 6.2 % Critically high 0.0-0.5 [facility] Comment on above: Performed By: #### C BC ####[facility] Viaoocmwrt9185 [place] [address]Dr. Ricardo Rocha LYMPH # 1.3 103/ul Normal 1.2-3.8 [facility] Comment on above: Performed By: #### C BC ####[facility] Dlhlcnwvxw5[address] [place] [address]Dr. Ricardo Rocha Lymphocytes/100 WBC (Bld) 9.6 % Critically low 20.5-60.0 [facility] Comment on above: Performed By: #### C BC ####[facility] Qhtdztvlsx58[address] [place] [address]Dr. Nanomarcial Rocha MANUAL DIFF REQ NO Normal [facility] Comment on above: Performed By: #### C BC ####[facility] Fywjznjdcr7178 [place] [phone]. Ricardo Rocha MCH (RBC) [Entitic mass] 25.1 pg Critically low 26.7-34.0 [facility] Comment on above: Performed By: #### C BC ####[facility] Mtklcntaao[address] [place], [place] [address]Dr. Ricardo Rocha MCHC (RBC) [Mass/Vol] 31.5 g/dL Normal 29.9-35.2 [facility] Comment on above: Performed By: #### C BC ####[facility] Pubnypqnbd[address] [place], [place] [address]Dr. Ricardo Rocha MCV (RBC) [Entitic vol] 79.7 fL Critically low 81.0-99.0 [facility] Comment on above: Performed By: #### C BC ####[facility] Zjnqqncxsu[address] [place], [place] [address]Dr. Ricardo Rocha MONO # 1.0 103/ul Critically high 0.3-0.8 [facility] Comment on above: Performed By: #### C BC ####[facility] Ecprccejgl[address] [place], [place] [address]Dr. Ricardo Rocha Monocytes/100 WBC (Bld) 7.3 % Normal 1.7-12.0 [facility] Comment on above: Performed By: #### C BC ####[facility] Zeoltylvpy[address] [place] [address]Dr. Ricardo Rocha NEUT # 10.2 103/ul Critically high 1.4-6.5 [facility] Comment on above: Performed By: #### C BC ####[facility] [address]hffhdjth[address] [place], [place] [address]Dr. Ricardo Rocha Neutrophils/100 WBC (Bld) 75.5 % Critically high 43.0-75.0 [facility] Comment on above: Performed By: #### C BC ####[facility] Dxncfoyhvb220[address] [place] [phone]. Ricardo Rocha Platelet mean volume (Bld) [Entitic vol] 11.8 fL Normal 9.5-13.5 [facility] [facility] Comment on above: Performed By: #### C BC ####[facility] [address] [place] [id number]. Ricardo Rocha PLT 208 103/ul Normal 150-450 [facility] Comment on above: Performed By: #### C BC ####[facility] Ohaskcforf[address] [place] [id number]. Ricardo Rocha RBC 3.35 106/ul Critically low 4.20-5.40 [facility] Comment on above: Performed By: #### C BC ####[facility] Dylhtzerwn[address] [place] [id number]. Ricardo Rocha WBC 13.5 103/ul Critically high 4.0-11.0 [facility] Comment on above: Performed By: #### C BC ####[facility] O[address]fgmq[address] [place] [id number]. Ricardo Rocha CULTURE BLOODon 06-15-2022 Microscopic examination of blood, culture Culture Observations: NO GROWTH AT 5 DAYS Normal [facility] Comment on above: Performed By: #### B LDCX2 ####[facility] Kirflhegtq[address] [place] [id number]. Ricardo Rocha Microscopic examination of blood, culture Culture Observations: NO GROWTH AT 5 DAYS Normal [facility] Comment on above: Performed By: #### B LDCX1 ####[facility] Rmnwmkozim[address] [place] [id number]. Ricardo Aj Covid-19 PCR (CVDTB)on 05-22 SARS-CoV-2 (COVID-19) RNA ADRIEL+probe Ql (Unsp spec) Not detected Normal NOT DETECTED [facility] Comment on above: Result [...] for this test is supported by the [place] of Health and Human Service's declaration that [...] be used). Performed By: #### C VDTB ####[facility] Jgcxiyoxpu[address] [place], [place] [address]Dr. Ricardo Rocha POINT OF CARE GLUCOSEon 05-22 Glucose [Mass/Vol] 366 mg/dL Critically high 74-106 [facility] Comment on above: Performed By: #### P OCGLUC ####[facility] Jifdmaegcg[address] [place], [place] [address]Dr. marcial [facility] Glucose [Mass/Vol] 229 mg/dL Critically high [address] [place] [address] Comment on above: Performed By: #### P OCGLUC ####[facility] Gysufsyswg[address] [place], [place] [address]Dr. Ricardo Rocha Glucose [Mass/Vol] 258 mg/dL Critically high -106 [facility] Comment on above: Performed By: #### P OCGLUC ####[facility] Vrrwpaynqx[address] [place], [place] [address]Dr. Ricardo Rocha PROF 14(COMP METB)on 022 Albumin [Mass/Vol] 1.8 g/dL Critically low 3.4-5.0 [facility] Comment on above: Performed By: #### C MP ####[facility] Mevndhhksm[address] [place], [place] [address]Dr. Ricardo Rocha Albumin/Globulin [Mass ratio] 0.4 {ratio} Normal [facility] Comment on above: Performed By: #### C MP ####[facility] Krzzdsesys[address] [place] [id number]. Ricardo Rocha ALP [Catalytic activity/Vol] 196 U/L Critically high 46-116 [facility] Comment on above: Performed By: #### C MP ####[facility] Lthuwzdgon03[address] [place] [phone]. Ricardo Rocha ALT [Catalytic activity/Vol] 18 U/L Normal 14-59 [facility] Comment on above: Performed By: #### C MP ####[facility] [address]zzfczdi[address] [place] [address]Dr. Ricardo Rocha Anion gap [Moles/Vol] 16.3 mmol/L Normal [facility] Comment on above: Performed By: #### C MP ####[facility] Nxamcuceue[address] [place] [address]Dr. Ricardo Rocha AST [Catalytic activity/Vol] 22 U/L Normal 15-37 [facility] Comment on above: Performed By: #### C MP ####[facility] Lcnhoeduzi[address] [place], [place] [address]Dr. Ricardo Rocha Bilirubin [Mass/Vol] 0.4 mg/dL Normal 0.2-1.0 [facility] Comment on above: Performed By: #### C MP ####[facility] Xajmvpwkdv34[address] [place], [place] [address]Dr. Ricardo Rocha Calcium [Mass/Vol] 8.2 mg/dL Critically low 8.5-10.1 [facility] Comment on above: Performed By: #### C MP ####[facility] Ffksuxtwcf[address] [place] [address]Dr. Ricardo Rocha Chloride [Moles/Vol] 103 mmol/L Normal 98-107 [facility] Comment on above: Performed By: #### C MP ####[facility] Omebejmjmb[address] [place] [address]Dr. Ricardo Rocha CO2 [Moles/Vol] 19.0 mmol/L Critically low 21.0-32.0 [facility] Comment on above: Performed By: #### C MP ####[facility] Z[address]eqwe[address] [place], [place] [address]Pf. Ricardo Rocha Creatinine [Mass/Vol] 1.32 mg/dL Critically high 0.55-1.02 [facility] Comment on above: Performed By: #### C MP ####[facility] [address]q74[address] [place], [place] [address]Ci. Ricardo Rocha EGFR-AF MALIAN 49 mL/min/1.73m2 Critically low >=60 [facility] Comment on above: Performed By: #### C MP ####[facility] Cfxgcqvhbq9[address] [place] [id number]. Ricardo Rocha EGFR-NON AF MALIAN 41 mL/min/1.73m2 Critically low >=60 [facility] Comment on above: Performed By: #### C MP ####[facility] [address]ujzdxnzmd[address] [place] [phone]. Ricardo Rocha Globulin (S) [Mass/Vol] 5.0 g/dL Normal [facility] Comment on above: Performed By: #### C MP ####[facility] Jbcyvdxwmm5[address] [place] [phone]. Ricardo Rocha Glucose [Mass/Vol] 228 mg/dL Critically high 74-106 T [facility] Comment on above: Performed By: #### C MP ####[facility] Ubabnnfqpv1754 [place] [phone]. Ricardo Rocha Potassium [Moles/Vol] 3.3 mmol/L Critically low 3.5-5.1 [facility] Comment on above: Performed By: #### C MP ####[facility] K[address]proui[address] [place], [place] [address]Ll. Ricardo Rocha Protein [Mass/Vol] 6.8 g/dL Normal 6.4-8.2 [facility] Comment on above: Performed By: #### C MP ####[facility] Zavoq[address]vbm79[address] [place] [phone]. Ricardo Rocha Sodium [Moles/Vol] 135 mmol/L Critically low 136-145 [facility] Comment on above: Performed By: #### C MP ####[facility] Uwrdxvwhff[address] [place] [address]Dr. Ricardo Rocha Urea nitrogen [Mass/Vol] 23.0 mg/dL Critically high 7.0-18.0 [facility] Comment on above: Performed By: #### C MP ####[facility] Pmnytskdzd[address] [place], [place] [address]Dr. Ricardo Rocha Urea nitrogen/Creatinine [Mass ratio] 17.4 mg/mg Normal [facility] Comment on above: Performed By: #### C MP ####[facility] Iikguflxbs[address] [place], [place] [address]Dr. Ricardo Rocha UA (CLEAN/CATCH) COMPLIANCE MGR/MICRO I F IND.on 06-15-2022 Bilirubin Ql (U) Negative Normal NEGATIVE [facility] Comment on above: Performed By: #### U MICRO, UACSIND ####[facility] Jbskcdhequ[address] [place], [place] [address]Dr. Ricardo Rocha Clarity (U) CLEAR Normal CLEAR [facility] Comment on above: Performed By: #### U MICRO, UACSIND ####[facility] Yjlugnxanu99[address] [place], [place] [address]Dr. Ricardo Rocha Color (U) LT. YELLOW Normal YELLOW [facility] Comment on above: Performed By: #### U MICRO, UACSIND ####[facility] Shtmmciypy[address] [place], [place] [address]Dr. Ricardo Rocha Glucose Ql (U) 250 mg/dl Abnormal NEGATIVE [facility] Comment on above: Performed By: #### U MICRO, UACSIND ####[facility] Ukidptfrkq[address] [place], [place] [address]Dr. Ricardo Rocha Hemoglobin Ql (U) TRACE-LYSED Abnormal NEGATIVE The [facility] Comment on above: Performed By: #### U MICRO, UACSIND ####[facility] Hvezuphira[address] [place], [place] [address]Dr. Ricardo Rocha Ketones Ql (U) 15 mg/dl Abnormal NEGATIVE [facility] Comment on above: Performed By: #### U MICRO, UACSIND ####[facility] [address]qjdgvpug[address] [place] [address]Dr. Ricardo Rocha LEUKOCYTES Negative Normal NEGATIVE [facility] Comment on above: Performed By: #### U MICRO, UACSIND ####[facility] Skjwkkydtx[address] [place], [place] [address]Dr. Ricardo Rocha Nitrite Ql (U) Negative Normal NEGATIVE [facility] Comment on above: Performed By: #### U MICRO, UACSIND ####[facility] Ujenfcpeyr[address] [place] [address]Dr. Ricardo Rocha pH (U) 6.0 [pH] Normal 5-9 [facility] Comment on above: Performed By: #### U MICRO, UACSIND ####[facility] Rpbvzklvzg[address] [place], [place] [address]Dr. Ricardo Rocha SPEC GRAVITY 1.010 Normal 1.005-<=1.0 25 [facility] Comment on above: Performed By: #### U MICRO, UACSIND ####[facility] Xipjyigwbv[address] [place], [place] [address]Dr. Ricardo Rocha UA PROTEIN Negative Normal NEGATIVE/ TRACE [facility] Comment on above: Performed By: #### U MICRO, UACSIND ####[facility] Ikcnjrixjn13[address] [place], [place] [address]Dr. Ricardo Rocha UR MICRO IND INDICATED Normal [facility] Comment on above: Performed By: #### U MICRO, UACSIND ####[facility] Dtmaltxcru[address] [place], [place] [address]Dr. Ricardo Rocha Urobilinogen Qn (U) 0.2 {Madeleine'U}/dL Normal 0.2 - 1. 0 [facility] Comment on above: Performed By: #### U MICRO, UACSIND ####[facility] Cklrrhqlac[address] [place], [place] [address]Dr. Ricardo Rocha URINE MICROSCOPIC ONLYon BACTERIA NONE SEEN Normal NONE SEEN [facility] Comment on above: Performed By: #### U MICRO, UACSIND ####[facility] Rxglbfbgwp9[address] [place], [place] [address]Dr. Ricardo Rocha Bacteria identified Cx Nom (U) NOT INDICATED Normal [facility] Comment on above: Performed By: #### U MICRO, UACSIND ####[facility] F[address]inbqk[address] [place] [address]Dr. Nanomarcial Rocha CAST NONE SEEN Normal NONE SEEN [facility] Comment on above: Performed By: #### U MICRO, UACSIND ####[facility] [address]dsupvbi[address] [place] [address]Dr. Nanomarcial Rocha Crystals LM Nom (Urine sed) NONE SEEN Normal NONE SEEN [facility] Comment on above: Performed By: #### U MICRO, UACSIND ####[facility] Qmfjpyxrsg[address] [place] [address]Dr. Ricardo Rocha Epithelial cells LM Ql (Urine sed) FEW Abnormal NONE SEEN /RARE [facility] Comment on above: Performed By: #### U MICRO, UACSIND ####[facility] Tcsaxpcyfh[address] [place], [place] [address]Dr. Ricardo Rocha MUCOUS NONE SEEN Normal NONE SEEN [facility] Comment on above: Performed By: #### U MICRO, UACSIND ####[facility] Ubkzeenuui[address] [place], [place] [address]Dr. Ricardo Rocha RBC 2-5 Abnormal 0-2 [facility] Comment on above: Performed By: #### U MICRO, UACSIND ####[facility] Rjvlasktws[address] [place], [place] [address]Dr. Ricardo Rocha WBC 2-5 Abnormal NONE SEEN [facility] Comment on above: Performed By: #### U MICRO, UACSIND ####[facility] Czcpjpyvio[address] [place], [place] [address]Dr. Ricardo Rocha YEAST PRESENT Abnormal NONE SEEN [facility] Comment on above: Performed By: #### U MICRO, UACSIND ####[facility] Njitlsbnvi[address] [place], [place] [address]Dr. Ricardo Rocha CBC AUTO DIFFon 06-14-2022 BASO # 0.0 103/ul Normal 0.0-0.1 [facility] Comment on above: Performed By: #### C BC ####[facility] Csz[address]qsxxo[address] [place] [address]Dr. Ricardo Rocha Basophils/100 WBC (Bld) 0.4 % Normal 0.2-2.0 [facility] Comment on above: Performed By: #### C BC ####[facility] Kqmtqaqlls57[address] [place] [address]Dr. Ricardo Rocha EO # 0.0 103/ul Normal 0.0-0.7 [facility] Comment on above: Performed By: #### C BC ####[facility] Pprykrtbsg9[address] [place] [address]Dr. Ricardo Rocha Eosinophils/100 WBC (Bld) 0.4 % Critically low 0.9-7.0 [facility] Comment on above: Performed By: #### C BC ####[facility] Wmkqplhyye[address] [place], [place] [address]Dr. Ricardo Rocha Erythrocyte distribution width (RBC) [Ratio] 13.8 % Normal 11.0-15.0 [facility] Comment on above: Performed By: #### C BC ####[facility] Krybzymtoi[address] [place] [address]Dr. Ricardo Rocha Hematocrit (Bld) [Volume fraction] 26.2 % Critically low 36.0-48.0 [facility] Comment on above: Performed By: #### C BC ####[facility] Bepfzvmvyx[address] [place] [address]Dr. Ricardo Rocha Hemoglobin (Bld) [Mass/Vol] 8.3 g/dL Critically low 12.0-16.0 [facility] Comment on above: Performed By: #### C BC ####[facility] Tbs[address]kjevrg[address] [place] [address]Dr. Ricardo Rocha IG # 0.24 10e3/ul Critically high 0.00-0.03 [facility] Comment on above: Performed By: #### C BC ####[facility] [address] [place], [place] [address]Dr. Ricardo Rocha IG % 2.3 % Critically high 0.0-0.5 [facility] Comment on above: Performed By: #### C BC ####[facility] Bzcltceivr16[address] [place] [address]Dr. Ricardo Rocha LYMPH # 1.1 103/ul Critically low 1.2-3.8 [facility] Comment on above: Performed By: #### C BC ####[facility] Rakhmhwgfr[address] [place] [address]Dr. Ricardo Rocha Lymphocytes/100 WBC (Bld) 10.2 % Critically low 20.5-60.0 [facility] Comment on above: Performed By: #### C BC ####[facility] Fsgmlcquwc232[address] [place] [address]Dr. Ricardo Rocha MANUAL DIFF REQ NO Normal [facility] Comment on above: Performed By: #### C BC ####[facility] Ipjomsnzzz8[address] [place] [address]Dr. Ricardo Rocha MCH (RBC) [Entitic mass] 25.5 pg Critically low 26.7-34.0 [facility] Comment on above: Performed By: #### C BC ####[facility] Djbotylbul6534 [place] [address]Dr. Ricardo Rocha MCHC (RBC) [Mass/Vol] 31.7 g/dL Normal 29.9-35.2 [facility] Comment on above: Performed By: #### C BC ####[facility] Rnwhfhnxqo64[address] [place] [address]Dr. Ricardo Rocha MCV (RBC) [Entitic vol] 80.6 fL Critically low 81.0-99.0 [facility] Comment on above: Performed By: #### C BC ####[facility] Izvakshymi[address] [place] [address]Dr. Ricardo Rocha MONO # 0.7 103/ul Normal 0.3-0.8 [facility] Comment on above: Performed By: #### C BC ####[facility] Nsobytzbbe7571 [place] [address]Dr. Ricardo Rocha Monocytes/100 WBC (Bld) 6.7 % Normal 1.7-12.0 [facility] Comment on above: Performed By: #### C BC ####[facility] Uuqulsxuhx2[address] [place] [address]Dr. Ricardo Rocha NEUT # 8.5 103/ul Critically high 1.4-6.5 [facility] Comment on above: Performed By: #### C BC ####[facility] Gvfcvwicax86[address] [place] [address]Dr. Ricardo Rocha Neutrophils/100 WBC (Bld) 80.0 % Critically high 43.0-75.0 [facility] Comment on above: Performed By: #### C BC ####[facility] Baxkefnjqc[address] [place] [address]Dr. Ricardo Rocha Platelet mean volume (Bld) [Entitic vol] 12.1 fL Normal 9.5-13.5 [facility] Comment on above: Performed By: #### C BC ####[facility] Klaiehxhjj[address] [place] [address]Dr. Ricardo Rocha PLT 173 103/ul Normal 150-450 [facility] Comment on above: Performed By: #### C BC ####[facility] Hjyavjcfqw50[address] [place] [address]Dr. Ricardo Rocha RBC 3.25 106/ul Critically low 4.20-5.40 [facility] Comment on above: Performed By: #### C BC ####[facility] Fvmyffeaiz30[address] [place] [phone]. Ricardo Rocha WBC 10.6 103/ul Normal 4.0-11.0 [facility] Comment on above: Performed By: #### C BC ####[facility] Uteuzboaig9[address] [place] [address]Dr. Ricardo Rocha POINT OF CARE GLUCOSEon 10-2 Glucose [Mass/Vol] 237 mg/dL Critically high 74-106 [facility] Comment on above: Performed By: #### P OCGLUC ####[facility] Ufxrdalwrc[address] [place] [address]Dr. Ricardo Rocha Glucose [Mass/Vol] 296 mg/dL Critically high 74-106 [facility] Comment on above: Performed By: #### P OCGLUC ####[facility] Nkcglqizkn7161 [place] [address]Dr. Nanomarcial Aj Glucose [Mass/Vol] 406 mg/dL Critically high 74-106 [facility] Comment on above: Performed By: #### P OCGLUC ####[facility] Msxunafnce35[address] [place] [phone]. Ricardo Rocha Glucose [Mass/Vol] 447 mg/dL Critically high 74-106 [facility] Comment on above: Performed By: #### P OCGLUC ####[facility] Diqlubdgne1466 [place] [address]Dr. Nanomarcial Aj Glucose [Mass/Vol] 319 mg/dL Critically high 74-106 [facility] Comment on above: Performed By: #### P OCGLUC ####[facility] Sjfetvqzrg5783 [place] [address]Dr. Ricardo Rocha PROF 14(COMP METB)on 022 Albumin [Mass/Vol] 1.6 g/dL Critically low 3.4-5.0 [facility] Comment on above: Performed By: #### C MP ####[facility] Gxdzrgbdmg[address] [place], [place] [address]Dr. Ricardo Rocha Albumin/Globulin [Mass ratio] 0.3 {ratio} Normal [facility] Comment on above: Performed By: #### C MP ####[facility] Uxrqqrfntv[address] [place], [place] [address]Dr. Ricardo Rocha ALP [Catalytic activity/Vol] 201 U/L Critically high 46-116 [facility] Comment on above: Performed By: #### C MP ####[facility] Rsucpfodfk[address] [place], [place] [address]Dr. Ricardo Rocha ALT [Catalytic activity/Vol] 23 U/L Normal 14-59 [facility] Comment on above: Performed By: #### C MP ####[facility] Qtsetefouu9743 [place] [address]Dr. Ricardo Rocha Anion gap [Moles/Vol] 16.0 mmol/L Normal [facility] Comment on above: Performed By: #### C MP ####[facility] Ebqmxuepvj5541 [place] [phone]. Ricardo Rocha AST [Catalytic activity/Vol] 21 U/L Normal 15-37 [facility] Comment on above: Performed By: #### C MP ####[facility] Xrzzifwhsg2369 [place] [phone]. Ricardo Rocha Bilirubin [Mass/Vol] 0.4 mg/dL Normal 0.2-1.0 [facility] Comment on above: Performed By: #### C MP ####[facility] Crvzazdlfk[address] [place], [place] [address]Dr. Ricardo Rocha Calcium [Mass/Vol] 7.6 mg/dL Critically low 8.5-10.1 [facility] Comment on above: Performed By: #### C MP ####[facility] Szmjbsnbnk[address] [place], [place] [address]Dr. Ricardo Rocha Chloride [Moles/Vol] 105 mmol/L Normal 98-107 [facility] Comment on above: Performed By: #### C MP ####[facility] Xdyecycblo48[address] [place], [place] [address]Dr. Ricardo Rocha CO2 [Moles/Vol] 17.3 mmol/L Critically low 21.0-32.0 [facility] Comment on above: Performed By: #### C MP ####[facility] Bhacvlwelw[address] [place], [place] [address]Dr. Ricardo Rocha Creatinine [Mass/Vol] 1.54 mg/dL Critically high 0.55-1.02 [facility] Comment on above: Performed By: #### C MP ####[facility] Haufpgxipu[address] [place], [place] [address]Dr. Ricardo Rocha EGFR-AF MALIAN 41 mL/min/1.73m2 Critically low >=60 [facility] Comment on above: Performed By: #### C MP ####[facility] Azfxyityej[address] [place], [place] [address]Dr. Ricardo Aj EGFR-NON AF MALIAN 34 mL/min/1.73m2 Critically low >=60 [facility] Comment on above: Performed By: #### C MP ####[facility] Exyxjscyzw6679 [place] [phone]. Ricardo Rocha Globulin (S) [Mass/Vol] 4.7 g/dL Normal [facility] Comment on above: Performed By: #### C MP ####[facility] Xiwapzcwkg6951 [place] [id number]. Ricardo Rocha Glucose [Mass/Vol] 277 mg/dL Critically high 74-106 T [facility] Comment on above: Performed By: #### C MP ####[facility] Mqhjygvxdi6797 [place] [address]Dr. Ricardo Rocha Potassium [Moles/Vol] 3.3 mmol/L Critically low 3.5-5.1 [facility] Comment on above: Performed By: #### C MP ####[facility] Qgugdbepza6619 [place] [address]Dr. Ricardo Rocha Protein [Mass/Vol] 6.3 g/dL Critically low 6.4-8.2 [facility] Comment on above: Performed By: #### C MP ####[facility] Xarguezbgt[address] [place], [place] [address]Dr. Ricardo Rocha Sodium [Moles/Vol] 135 mmol/L Critically low 136-145 [facility] Comment on above: Performed By: #### C MP ####[facility] Afjmqiwusb04[address] [place], [place] [address]Dr. Ricardo Rocha Urea nitrogen [Mass/Vol] 29.0 mg/dL Critically high 7.0-18.0 [facility] Comment on above: Performed By: #### C MP ####[facility] Vohsrkugkw7[address] [place] [address]Dr. Ricardo Rocha Urea nitrogen/Creatinine [Mass ratio] 18.8 mg/mg Normal [facility] Comment on above: Performed By: #### C MP ####[facility] Jksegexfts2546 [place] [address]Dr. Ricardo Aj CBC AUTO DIFFon 06-13-2022 BASO # 0.0 103/ul Normal 0.0-0.1 [facility] Comment on above: Performed By: #### C BC ####[facility] Diwovavwps1172 [place] [address]Dr. Ricardo Aj Basophils/100 WBC (Bld) 0.2 % Normal 0.2-2.0 [facility] Comment on above: Performed By: #### C BC ####[facility] Fawcpignmk[address] [place], [place] [address]Dr. Ricardo Rocha EO # 0.1 103/ul Normal 0.0-0.7 [facility] Comment on above: Performed By: #### C BC ####[facility] Okdruefqey10[address] [place], [place] [address]Dr. Ricardo Aj Eosinophils/100 WBC (Bld) 0.6 % Critically low 0.9-7.0 [facility] Comment on above: Performed By: #### C BC ####[facility] Ukjqtmcsox8[address] [place], [place] [address]Dr. Ricardo Rocha Erythrocyte distribution width (RBC) [Ratio] 14.2 % Normal 11.0-15.0 [facility] Comment on above: Performed By: #### C BC ####[facility] Hagefzeefn[address] [place], [place] [address]Dr. Ricardo Rocha Hematocrit (Bld) [Volume fraction] 27.9 % Critically low 36.0-48.0 [facility] Comment on above: Performed By: #### C BC ####[facility] Eifmmeehhc[address] [place], [place] [address]Dr. Ricardo Rocha Hemoglobin (Bld) [Mass/Vol] 8.6 g/dL Critically low 12.0-16.0 [facility] Comment on above: Performed By: #### C BC ####[facility] Rilsqlobrz[address] [place], [place] [address]Dr. Ricardo Rocha IG # 0.08 10e3/ul Critically high 0.00-0.03 [facility] Comment on above: Performed By: #### C BC ####[facility] Txczwghkrs3[address] [place], [place] [address]Dr. Ricardo Rocha IG % 0.8 % Critically high 0.0-0.5 [facility] Comment on above: Performed By: #### C BC ####[facility] [address] [place] [address]DrIrina Rocha LYMPH # 0.9 103/ul Critically low 1.2-3.8 [facility] Comment on above: Performed By: #### C BC ####[facility] W[address]akdeb[address] [place] [address]DrIrina Rocha Lymphocytes/100 WBC (Bld) 8.9 % Critically low 20.5-60.0 [facility] Comment on above: Performed By: #### C BC ####[facility] Hvedwnqqwg4[address] [place], [place] [address]DrIrina Rocha MANUAL DIFF REQ NO Normal [facility] Comment on above: Performed By: #### C BC ####[facility] Mgkuicgflm8552[address] [place], [place] [address]DrIrina Rocha MCH (RBC) [Entitic mass] 25.1 pg Critically low 26.7-34.0 [facility] Comment on above: Performed By: #### C BC ####[facility] Cqfybvmtpj7[address] [place], [place] [address]Dr. Ricardo Rocha MCHC (RBC) [Mass/Vol] 30.8 g/dL Normal 29.9-35.2 [facility] Comment on above: Performed By: #### C BC ####[facility] Xvjxyllipb20[address] [place], [place] [address]DrIrina Rocha MCV (RBC) [Entitic vol] 81.6 fL Normal 81.0-99.0 [facility] Comment on above: Performed By: #### C BC ####[facility] Sbogyoiqtm5104[address] [place], [place] [address]DrIrina Rocha MONO # 0.6 103/ul Normal 0.3-0.8 [facility] Comment on above: Performed By: #### C BC ####[facility] Yknyhrizaw[address] [place], [place] [address]Dr. Ricardo Rocha Monocytes/100 WBC (Bld) 5.7 % Normal 1.7-12.0 [facility] Comment on above: Performed By: #### C BC ####[facility] [address]poro[address] [place] [address]Dr. Ricardo Rocha NEUT # 8.4 103/ul Critically high 1.4-6.5 [facility] Comment on above: Performed By: #### C BC ####[facility] Aeazpavdmu77[address] [place] [address]Dr. Ricardo Rocha Neutrophils/100 WBC (Bld) 83.8 % Critically high 43.0-75.0 [facility] Comment on above: Performed By: #### C BC ####[facility] Hpqlkqnaec9[address] [place], [place] [address]Dr. Ricardo Rocha Platelet mean volume (Bld) [Entitic vol] 12.1 fL Normal 9.5-13.5 [facility] Comment on above: Performed By: #### C BC ####[facility] Qgclgvxpka45[address] [place], [place] [address]Dr. Ricardo Rocha PLT 149 103/ul Critically low 150-450 [facility] Comment on above: Performed By: #### C BC ####[facility] Kzukqeezuu6718[address] [place], [place] [address]Dr. Ricardo Rocha RBC 3.42 106/ul Critically low 4.20-5.40 [facility] Comment on above: Performed By: #### C BC ####[facility] Ihjzbjqfaw6[address] [place], [place] [address]Dr. Ricardo Rocha WBC 10.0 103/ul Normal 4.0-11.0 [facility] Comment on above: Performed By: #### C BC ####[facility] Dzmuxcqeip2333[address] [place], [place] [address]Dr. Ricardo Rocha CULTURE OTHERon 06-13-2022 CULTURE OTHER Normal [facility] Comment on above: Performed By: #### O THCX ####[facility] Hkrukgtcom[address] [place], [place] [address]Dr. Ricardo Aj CULTURE OTHER Normal [facility] Comment on above: Performed By: #### O THCX ####[facility] Vhotpfbasx3[address] [place] [address]Dr. Ricardo Rocha CULTURE OTHER Normal [facility] Comment on above: Performed By: #### O THCX ####[facility] Drulyozaeu[address] [place] [address]Dr. Ricardo oRcha GI PANEL (PCR)on 06-13-2022 Adenovirus F 40/41 Not detected Normal NOT DETECTED [facility] Comment on above: Performed By: #### G IPANEL ####[facility] Nlvdcqsquo0129[address] [place], [place] [address]Dr. Ricardo Rocha Astrovirus Not detected Normal NOT DETECTED [facility] Comment on above: Performed By: #### G IPANEL ####[facility] Ecqjvvnnok[address] [place], [place] [address]Dr. Ricardo Rocha C. Diff toxin A/B Not detected Normal NOT DETECTED [facility] Comment on above: Performed By: #### G IPANEL ####[facility] Ncgmyleqlg0701[address] [place], [place] [address]Dr. Ricardo Rocha Campylobacter Not detected Normal NOT DETECTED [facility] Comment on above: Performed By: #### G IPANEL ####[facility] Vzfcebmvso8[address] [place], [place] [address]Dr. Ricardo Rocha Cryptosporidium Not detected Normal NOT DETECTED [facility] Comment on above: Performed By: #### G IPANEL ####[facility] Xvmeiizbup55[address] [place], [place] [address]Dr. Ricardo Rocha Cyclos. Cayetanensis Not detected Normal NOT DETECTED [facility] Comment on above: Performed By: #### G IPANEL ####[facility] Fywoslflao03[address] [place], [place] [address]Dr. Ricardo Rocha E. Coli O157 Not Applicable Normal Not Applicable [facility] Comment on above: Performed By: #### G IPANEL ####[facility] Fajfimtvmi7[address] [place], [place] [address]Dr. Ricardo Rocha E. histolytica Not detected Normal NOT DETECTED [facility] Comment on above: Performed By: #### G IPANEL ####[facility] [address] [place] [id number]. Ricardo Rocha EAEC Not detected Normal NOT DETECTED [facility] Comment on above: Performed By: #### G IPANEL ####[facility] Tte[address]vnbqq[address] [place] [address]Dr. Ricardo Rocha EIEC Not detected Normal NOT DETECTED [facility] Comment on above: Performed By: #### G IPANEL ####[facility] Jfxlwjblrk08[address] [place] [address]Dr. Ricardo Rocha EPEC Not detected Normal NOT DETECTED [facility] Comment on above: Performed By: #### G IPANEL ####[facility] Updcrumwgo9187[address] [place], [place] [address]Dr. Ricardo Rocha ETEC Not detected Normal NOT DETECTED [facility] Comment on above: Performed By: #### G IPANEL ####[facility] Ahgmuhsovv5183[address] [place], [place] [address]Dr. Nanomarcial Rocha G. Lamblia Not detected Normal NOT DETECTED [facility] Comment on above: Performed By: #### G IPANEL ####[facility] Tcmqivaxdu7474[address] [place], [place] [address]Dr. Nanomarcial Rocha GIPANEL CONTROLS PASSED Normal [facility] Comment on above: Performed By: #### G IPANEL ####[facility] Jjqqoxbtmy8[address] [place], [place] [address]Dr. Ricardo CASASNL MONIQUE HEADER GI PANEL BACTERIA Normal T [facility] Comment on above: Performed By: #### G IPANEL ####[facility] [address] [place] [id number]. Ricardo Rocha GIPNLHD ECOLI GI PANEL DIARRHEAGEN IC E.COLI / SHIGELLA Normal [facility] Comment on above: Performed By: #### G IPANEL ####[facility] Vtptzfwzss[address] [place], [place] [address]Dr. Ricardo Rocha GIPNLHD INFO SEE BELOW Normal [facility] Comment on above: Result Comment: EAEC - Enteroaggregative E. Coli EPEC- Enteropathogenic E. Coli ETEC- Enterotoxigenic E. Coli lt/st STEC- Shigella-like toxin-producing E. Coli stx1/stx2 EIEC- Shigella/Enteroinvasive E. Coli Performed By: #### G IPANEL ####[facility] Myasybdgnu8228[address] [place], [place] [address]Dr. Ricardo Rocha GIPNLHD PARASITES GI PANEL PARASITES Normal [facility] Comment on above: Performed By: #### G IPANEL ####[facility] Ymfiflfovl7635[address] [place], [place] [address]Dr. Ricardo Rocha GIPNLHD VIRUS GI PANEL VIRUSES Normal [facility] Comment on above: Performed By: #### G IPANEL ####[facility] Xpbrngirou1766[address] [place], [place] [address]Dr. Ricardo Rocha Norovirus GI/GII Not detected Normal NOT DETECTED [facility] Comment on above: Performed By: #### G IPANEL ####[facility] Abjrunqpqb5098[address] [place], [place] [address]Dr. Ricardo Rocha P. Shigelloides Not detected Normal NOT DETECTED [facility] Comment on above: Performed By: #### G IPANEL ####[facility] Vkcqsvcqdg7[address] [place], [place] [address]Dr. Ricardo Rocha Rotavirus A Not detected Normal NOT DETECTED [facility] Comment on above: Performed By: #### G IPANEL ####[facility] Zopprybsyc[address] [place], [place] [address]Dr. Ricardo Rocha Salmonella Not detected Normal NOT DETECTED [facility] Comment on above: Performed By: #### G IPANEL ####[facility] Wmcldlzyfn0718[address] [place], [place] [address]Dr. Ricardo Rocha Sapovirus Not detected Normal NOT DETECTED [facility] Comment on above: Performed By: #### G IPANEL ####[facility] Uzktkovebo[address] [place], [place] [address]Dr. Ricardo Rocha STEC Not detected Normal NOT DETECTED [facility] Comment on above: Performed By: #### G IPANEL ####[facility] Evcejhxyfh9827[address] [place], [place] [address]Dr. Ricardo Rocha Vibrio Not detected Normal NOT DETECTED [facility] Comment on above: Performed By: #### G IPANEL ####[facility] Tx[address]jwute[address] [place] [address]Dr. Ricardo Rocha Vibrio Cholera Not detected Normal NOT DETECTED [facility] Comment on above: Performed By: #### G IPANEL ####[facility] Qvyxwhwulx7[address] [place] [address]Dr. Ricardo Rocha Y. Enterocolitica Not detected Normal NOT DETECTED [facility] Comment on above: Performed By: #### G IPANEL ####[facility] Anomqmlffh[address] [place] [address]Dr. Ricardo Rocha IRON AND TIBCon 06-13-2022 % SATURATION 19.9 % Normal [facility] Comment on above: Performed By: #### F ETIBC, B12FOL ####[facility] Jzybqbiqjt64[address] [place], [place] [address]Dr. Ricardo Rocha Iron [Mass/Vol] 75.0 ug/dL Normal 50.0-170.0 [facility] Comment on above: Performed By: #### F ETIBC, B12FOL ####[facility] Xtibuznrta34[address] [place], [place] [address]Dr. Ricardo Rocha TIBC DIRECT 376.0 ug/dL Normal 250.0-450.0 [facility] Comment on above: Performed By: #### F ETIBC, B12FOL ####[facility] Avzkxlsatm5982[address] [place], [place] [address]Dr. Ricardo Rocha POINT OF CARE GLUCOSEon 05-22 Glucose [Mass/Vol] 238 mg/dL Critically high 74-106 [facility] Comment on above: Performed By: #### P OCGLUC ####[facility] Rcnwqutcxn6732[address] [place], [place] [address]Dr. Ricardo Rocha Glucose [Mass/Vol] 146 mg/dL Critically high 74-106 [facility] Comment on above: Performed By: #### P OCGLUC ####[facility] Liqtdpoeyg[address] [place], [place] [address]Dr. Ricardo Rocha Glucose [Mass/Vol] 143 mg/dL Critically high 74-106 [facility] Comment on above: Performed By: #### P OCGLUC ####[facility] Dpowcubxhz7161 [place] [address]Dr. Ricardo Rocha Glucose [Mass/Vol] 205 mg/dL Critically high 74-106 [facility] Comment on above: Performed By: #### P OCGLUC ####[facility] Rtgsjtptmk2863 [place] [address]Dr. Ricardo Rocha Glucose [Mass/Vol] 227 mg/dL Critically high 74-106 [facility] Comment on above: Performed By: #### P OCGLUC ####[facility] Ysztdekmsx7228[address] [place], [place] [address]Dr. Ricardo Rocha PROF 14(COMP METB)on 022 Albumin [Mass/Vol] 1.5 g/dL Critically low 3.4-5.0 [facility] Comment on above: Performed By: #### C MP ####[facility] Utyirvrtjr[address] [place], [place] [address]Dr. Ricardo Rocha Albumin/Globulin [Mass ratio] 0.3 {ratio} Normal [facility] Comment on above: Performed By: #### C MP ####[facility] Potmzopmpu[address] [place], [place] [address]Dr. Ricardo Rocha ALP [Catalytic activity/Vol] 136 U/L Critically high 46-116 [facility] Comment on above: Performed By: #### C MP ####[facility] Wxihjbepxf[address] [place], [place] [address]Dr. Ricardo Rocha ALT [Catalytic activity/Vol] 18 U/L Normal 14-59 [facility] Comment on above: Performed By: #### C MP ####[facility] Fkqzubrlzb[address] [place], [place] [address]Dr. Ricardo Rocha Anion gap [Moles/Vol] 10.2 mmol/L Normal [facility] Comment on above: Performed By: #### C MP ####[facility] Hqofzlzjyt[address] [place], [place] [address]Dr. Ricardo Rocha AST [Catalytic activity/Vol] 37 U/L Normal 15-37 [facility] Comment on above: Performed By: #### C MP ####[facility] Pggbxzljpf[address] [place], [place] [address]Dr. Ricardo Aj Bilirubin [Mass/Vol] 0.4 mg/dL Normal 0.2-1.0 [facility] Comment on above: Performed By: #### C MP ####[facility] Vunwdclymd9093[address] [place], [place] [address]Dr. Ricardo Rocha Calcium [Mass/Vol] 8.0 mg/dL Critically low 8.5-10.1 [facility] Comment on above: Performed By: #### C MP ####[facility] Cwxjkagnto2558[address] [place], [place] [address]Dr. Ricardo Rocha Chloride [Moles/Vol] 110 mmol/L Critically high 98-107 [facility] Comment on above: Performed By: #### C MP ####[facility] Cprhmlxode4325[address] [place], [place] [address]Dr. Ricardo Rocha CO2 [Moles/Vol] 18.2 mmol/L Critically low 21.0-32.0 [facility] Comment on above: Performed By: #### C MP ####[facility] Pktvzyhalh3615[address] [place], [place] [address]Dr. Ricardo Rocha Creatinine [Mass/Vol] 1.76 mg/dL Critically high 0.55-1.02 [facility] Comment on above: Performed By: #### C MP ####[facility] Dtguaxpcdz7875[address] [place], [place] [address]Dr. Ricardo Rocha EGFR-AF MALIAN 35 mL/min/1.73m2 Critically low >=60 [facility] Comment on above: Performed By: #### C MP ####[facility] Rrkvmmlpfh05[address] [place], [place] [address]Dr. Ricardo Rocha EGFR-NON AF MALIAN 29 mL/min/1.73m2 Critically low >=60 [facility] Comment on above: Performed By: #### C MP ####[facility] Wueuqvxkrf360[address] [place], [place] [address]Dr. Ricardo Rocha Globulin (S) [Mass/Vol] 4.7 g/dL Normal [facility] Comment on above: Performed By: #### C MP ####[facility] Dpxipmyire5105[address] [place], [place] [address]Dr. Ricardo Rocha Glucose [Mass/Vol] 223 mg/dL Critically high 74-106 T [facility] Comment on above: Performed By: #### C MP ####[facility] Laonlmtslg0422[address] [place], [place] [address]Dr. Ricardo Rocha Potassium [Moles/Vol] 3.4 mmol/L Critically low 3.5-5.1 [facility] Comment on above: Performed By: #### C MP ####[facility] Bznklawiae[address] [place], [place] [address]Dr. Ricardo Rocha Protein [Mass/Vol] 6.2 g/dL Critically low 6.4-8.2 [facility] Comment on above: Performed By: #### C MP ####[facility] Ujozsinmtq2618[address] [place], [place] [address]Dr. Ricardo Rocha Sodium [Moles/Vol] 135 mmol/L Critically low 136-145 [facility] Comment on above: Performed By: #### C MP ####[facility] Djbvgnvdwi1452[address] [place], [place] [address]Dr. Ricardo Rocha Urea nitrogen [Mass/Vol] 33.0 mg/dL Critically high 7.0-18.0 [facility] Comment on above: Performed By: #### C MP ####[facility] Lwaobazier15[address] [place], [place] [address]Dr. Ricardo Rocha Urea nitrogen/Creatinine [Mass ratio] 18.8 mg/mg Normal [facility] Comment on above: Performed By: #### C MP ####[facility] Adlyivmbyp8825[address] [place], [place] [address]Dr. Ricardo Rocha VANCOMYCIN TROUGHon 10-24-20 22 VANCOMYCIN TROUGH 15.2 ug/ml Normal 5.0-20.0 [facility] Comment on above: Performed By: #### V ANCT ####[facility] Lhygfucdwo[address] [place], [place] [address]Dr. Ricardo Rocha VIT B12 AND FOLATEon 022 Cobalamin (Vitamin B12) [Mass/Vol] 874.0 pg/mL Normal 193.0-986.0 [facility] Comment on above: Performed By: #### F ETIBC, B12FOL ####[facility] [address]qvktznnln8[address] [place] [address]Dr. Ricardo Rocha FOLATE 6.60 ng/mL Critically low 8.60-58.90 [facility] Comment on above: Performed By: #### F ETIBC, B12FOL ####[facility] Ljqbugpjmu10[address] [place] [address]Dr. Ricardo Rocha XR FOOT LT MIN 3 VIEWSon XR FOOT LT MIN 3 VIEWS Normal [facility] CBC W MANUAL DIFFon 06-12-20 ATYPICAL LYMPH # Normal [facility] Comment on above: Performed By: #### C DWAINE ####[facility] Lzmfwmojqi[address] [place], [place] [address]Dr. Ricardo Rocha ATYPICAL LYMPH % Normal [facility] Comment on above: Performed By: #### C DWAINE ####[facility] Rhyaftbqhf[address] [place], [place] [address]Dr. Ricardo Rocha BAND # 1.9 103/ul Critically high 0.0-0.3 [facility] Comment on above: Performed By: #### C BCRED ####[facility] Ffyuwrkuih94[address] [place] [address]Dr. Ricardo Rocha BAND % 17 % Critically high 0-5 [facility] Comment on above: Performed By: #### C BCRED ####[facility] Myingyebye[address] [place], [place] [address]Dr. Ricardo Rocha BASOM # 0.00 103/ul Normal 0.00-0.10 [facility] Comment on above: Performed By: #### C BCRED ####[facility] Vesfvldzbo[address] [place], [place] [address]Dr. Ricardo Rocha BASOM % 0.0 % Critically low 0.2-2.0 [facility] Comment on above: Performed By: #### C DWAINE ####[facility] Hgeuusszkd4[address] [place] [address]Dr. Ricardo Rocha BLAST # Normal [facility] Comment on above: Performed By: #### C DWAINE ####[facility] Jedtmrtoau60[address] [place] [address]Dr. Ricardo Rocha BLAST % Normal [facility] Comment on above: Performed By: #### C DWAINE ####[facility] Xgjrwxdguo038[address] [place] [address]Dr. Ricardo Rocha CORRECTED WBC Normal 4.0-11.0 [facility] Comment on above: Performed By: #### C DWAINE ####[facility] Lvxcdaxefc69[address] [place], [place] [address]Dr. Ricardo Rocha EOS # 0.00 103/ul Normal 0.00-0.70 [facility] Comment on above: Performed By: #### C DWAINE ####[facility] Klbfrfssqe1927[address] [place], [place] [address]Dr. Ricardo Rocha EOS% 0.0 % Critically low 0.9-7.0 [facility] Comment on above: Performed By: #### C DWAINE ####[facility] Ypflnqxwqt3[address] [place], [place] [address]Dr. Ricardo Rocha HCT 28.0 % Critically low 36.0-48.0 [facility] Comment on above: Performed By: #### C DWAINE ####[facility] Fayahamfqo7[address] [place], [place] [address]Dr. Ricardo Rocha HGB 8.6 g/dl Critically low 12.0-16.0 [facility] Comment on above: Performed By: #### C DWAINE ####[facility] Yqwptscyhp7[address] [place], [place] [address]Dr. Ricardo Rocha HYPOCHROMASIA SLIGHT Normal [facility] Comment on above: Performed By: #### C DWAINE ####[facility] Kqzjbwigmk[address] [place], [place] [address]Dr. Ricardo Aj LYMPHM # 0.77 103/ul Critically low 1.20-3.80 [facility] Comment on above: Performed By: #### C DWAINE ####[facility] Jiwlkqylru6150 [place] [address]Dr. Ricardo Rocha LYMPHM% 7.0 % Critically low 20.5-60.0 [facility] Comment on above: Performed By: #### C DWAINE ####[facility] Corucasjyt4[address] [place] [address]Dr. Ricardo Rocha MCH 25.1 pg Critically low 26.7-34.0 [facility] Comment on above: Performed By: #### C DWAINE ####[facility] Eqxkmbjzqf7562 [place] [address]Dr. Ricardo Rocha MCHC 30.7 g/dl Normal 29.9-35.2 [facility] Comment on above: Performed By: #### C DWAINE ####[facility] Tsjwbrqmap[address] [place], [place] [address]Dr. Ricardo Rocha MCV 81.9 fL Normal 81.0-99.0 [facility] Comment on above: Performed By: #### C DWAINE ####[facility] Jqdxweiyji[address] [place], [place] [address]Dr. Ricardo Rocha METAMYELOCYTE # Normal [facility] Comment on above: Performed By: #### C DWAINE ####[facility] Yxusrhjxwf27[address] [place] [address]Dr. Ricardo Rocha METAMYELOCYTE % Normal [facility] Comment on above: Performed By: #### C DWAINE ####[facility] Ehmxtqxsvm37[address] [place] [address]Dr. Ricardo Rocha MONOM# 0.11 103/ul Critically low 0.30-0.80 [facility] Comment on above: Performed By: #### C DWAINE ####[facility] Rbvgxmtkmq2902 [place] [address]Dr. Ricardo Rocha MONOM% 1.0 % Critically low 1.7-12.0 [facility] Comment on above: Performed By: #### C DWAINE ####[facility] [address] [place], [place] [address]Gr. Ricardo Rocha MPV 12.6 fL Normal 9.5-13.5 [facility] Comment on above: Performed By: #### C DWAINE ####[facility] Yq[address]bykvcnq13[address] [place], [place] [address]Zz. Ricardo Rocha MYELOCYTE # Normal [facility] Comment on above: Performed By: #### C DWAINE ####[facility] [address]fo[address] [place] [id number]. Ricardo Rocha MYELOCYTE % Normal [facility] Comment on above: Performed By: #### C DWAINE ####[facility] Unpswgbeem4[address] [place] [id number]. Ricardo Rocha NRBC Normal [facility] Comment on above: Performed By: #### C DWAINE ####[facility] Mldykpdcwj4582 [place] [id number]. Ricardo Rocha PLT 140 103/ul Critically low 150-450 [facility] Comment on above: Performed By: #### C DWAINE ####[facility] Pcmiylqzor8923 [place] [id number]. Ricardo Rocha RBC 3.42 106/ul Critically low 4.20-5.40 [facility] Comment on above: Performed By: #### C DWAINE ####[facility] Wnzrwecckx5228 [place] [id number]. Ricardo Rocha RDW 13.7 % Normal 11.0-15.0 [facility] Comment on above: Performed By: #### C DWAINE ####[facility] Enesqyqipi8926 [place] [id number]. Ricardo Rocha SEG # 8.25 103/ul Critically high 1.40-6.50 [facility] Comment on above: Performed By: #### C DWAINE ####[facility] Cpgssedjtl1324 [place] [id number]. Ricardo Rocha SEG % 75.0 % Normal 43.0-75.0 [facility] Comment on above: Performed By: #### C DWAINE ####[facility] Jjweuysjfl9735 [place] [id number]. Ricardo Rocha WBC 11.0 103/ul Normal 4.0-11.0 [facility] Comment on above: Performed By: #### C BCMAN ####[facility] Ojsmypncvc0113 [place] [address]Dr. Ricardo Rocha POINT OF CARE GLUCOSEon 05-22 Glucose [Mass/Vol] 200 mg/dL Critically high 74-106 [facility] Comment on above: Performed By: #### P OCGLUC ####[facility] Iymwedhtoz0826 [place] [address]Dr. Ricardo Rocha Glucose [Mass/Vol] 165 mg/dL Critically high 74-106 [facility] Comment on above: Performed By: #### P OCGLUC ####[facility] Mcwkxyjyuw8387 [place] [address]Dr. Ricardo Rocha Glucose [Mass/Vol] 152 mg/dL Critically high -106 [facility] Comment on above: Performed By: #### P OCGLUC ####[facility] Dtdremztou7679 [place] [address]Dr. Ricardo Rocha Glucose [Mass/Vol] 154 mg/dL Critically high -106 [facility] Comment on above: Performed By: #### P OCGLUC ####[facility] Fwutskidbx6337 [place] [address]Dr. Ricardo Rocha PROF 14(COMP METB)on 022 Albumin [Mass/Vol] 1.9 g/dL Critically low 3.4-5.0 [facility] Comment on above: Performed By: #### C MP ####[facility] Tcplxxqysw1236 [place] [address]Dr. Ricardo Aj Albumin/Globulin [Mass ratio] 0.4 {ratio} Normal [facility] Comment on above: Performed By: #### C MP ####[facility] Yvrhqsvpyt3691 [place] [address]Dr. Ricardo Rocha ALP [Catalytic activity/Vol] 68 U/L Normal 46-116 [facility] Comment on above: Performed By: #### C MP ####[facility] Maoqncikkk9337 [place] [id number]. Ricardo Rocha ALT [Catalytic activity/Vol] 16 U/L Normal 14-59 [facility] Comment on above: Performed By: #### C MP ####[facility] Osxoizrpot4144 [place] [id number]. Ricardo Rocha Anion gap [Moles/Vol] 15.1 mmol/L Normal [facility] Comment on above: Performed By: #### C MP ####[facility] Ujqpizbenn4979 [place] [id number]. Ricardo Rocha AST [Catalytic activity/Vol] 26 U/L Normal 15-37 [facility] Comment on above: Performed By: #### C MP ####[facility] Nmdxtplyod99[address] [place], [place] [address]Dr. Ricardo Rocha Bilirubin [Mass/Vol] 0.3 mg/dL Normal 0.2-1.0 [facility] Comment on above: Performed By: #### C MP ####[facility] Aintjxkkui39[address] [place], [place] [address]Dr. Ricardo Rocha Calcium [Mass/Vol] 8.0 mg/dL Critically low 8.5-10.1 [facility] Comment on above: Performed By: #### C MP ####[facility] Kwexyfjrxe[address] [place], [place] [address]Dr. Nanomarcial Aj Chloride [Moles/Vol] 110 mmol/L Critically high 98-107 [facility] Comment on above: Performed By: #### C MP ####[facility] Nddpruenra1950 [place] [id number]. Ricardo Aj CO2 [Moles/Vol] 18.0 mmol/L Critically low 21.0-32.0 [facility] Comment on above: Performed By: #### C MP ####[facility] Qwajggzpzq1116[address] [place], [place] [address]Dr. Ricardo Aj Creatinine [Mass/Vol] 1.97 mg/dL Critically high 0.55-1.02 [facility] Comment on above: Performed By: #### C MP ####[facility] Izzcglxxmk3619 [place] [id number]. Ricardo Rocha EGFR-AF MALIAN 31 mL/min/1.73m2 Critically low >=60 [facility] Comment on above: Performed By: #### C MP ####[facility] Dkdkpydkbo7849 [place] [id number]. Ricardo Rocha EGFR-NON AF MALIAN 26 mL/min/1.73m2 Critically low >=60 [facility] Comment on above: Performed By: #### C MP ####[facility] Jiyhyionqy0639 [place] [address]Dr. Ricardo Rocha Globulin (S) [Mass/Vol] 5.2 g/dL Normal [facility] Comment on above: Performed By: #### C MP ####[facility] Csjkqktbhi3717 [place] [address]Dr. Ricardo Rocha Glucose [Mass/Vol] 146 mg/dL Critically high 74-106 [facility] Comment on above: Performed By: #### C MP ####[facility] Rgayrbrhgs9522 [place] [address]Dr. Ricardo Rocha Potassium [Moles/Vol] 3.1 mmol/L Critically low 3.5-5.1 [facility] Comment on above: Performed By: #### C MP ####[facility] Bqoedmtwbh8[address] [place], [place] [address]Dr. Ricardo Rocha Protein [Mass/Vol] 7.1 g/dL Normal 6.4-8.2 [facility] Comment on above: Performed By: #### C MP ####[facility] Rkxlzmdigv5481 [place] [address]Dr. Ricardo Rocha Sodium [Moles/Vol] 140 mmol/L Normal 136-145 [facility] Comment on above: Performed By: #### C MP ####[facility] Hrworyogaq2904 [place] [address]Dr. Ricardo Rocha Urea nitrogen [Mass/Vol] 30.0 mg/dL Critically high 7.0-18.0 [facility] Comment on above: Performed By: #### C MP ####[facility] Gtndwdaojm3931 [place] [address]Dr. Ricardo Rocha Urea nitrogen/Creatinine [Mass ratio] 15.2 mg/mg Normal [facility] Comment on above: Performed By: #### C MP ####[facility] Zblkfolyvt1436 [place] [id number]. Ricardo Rocha CBC W MANUAL DIFFon 06-11-20 22 ATYPICAL LYMPH # Normal [facility] Comment on above: Performed By: #### C BCMAN ####[facility] Dzgznhaadm8[address] [place], [place] [address]Dr. Ricardo Rocha ATYPICAL LYMPH % Normal [facility] Comment on above: Performed By: #### C BCMAN ####[facility] Gcwaatwczz174[address] [place], [place] [address]Dr. Ricardo Rocha BAND # 1.1 103/ul Critically high 0.0-0.3 [facility] Comment on above: Performed By: #### C BCMAN ####[facility] Qohbzjadki8316[address] [place], [place] [address]Dr. Ricardo Rocha BAND % 12 % Critically high 0-5 [facility] Comment on above: Performed By: #### C BCMAN ####[facility] Npqvvuqnpo063[address] [place], [place] [address]Dr. Ricardo Rocha BASOM # 0.00 103/ul Normal 0.00-0.10 [facility] Comment on above: Performed By: #### C BCMAN ####[facility] Scnmndtjdm994[address] [place], [place] [address]Dr. Ricardo Rocha BASOM % 0.0 % Critically low 0.2-2.0 [facility] Comment on above: Performed By: #### C BCMAN ####[facility] Eimyyeasnt99[address] [place], [place] [address]Dr. Ricardo Rocha BLAST # Normal [facility] Comment on above: Performed By: #### C BCMAN ####[facility] Jvkxglxgkp2534[address] [place], [place] [address]Dr. Ricardo Rocha BLAST % Normal [facility] Comment on above: Performed By: #### C DWAINE ####[facility] Awtmlbigpu3962 [place], [place] [address]Nk. Ricardo Rocha CORRECTED WBC Normal 4.0-11.0 [facility] Comment on above: Performed By: #### C DWAINE ####[facility] Rvnlnirave3623 [place], [place] [address]Bc. Ricardo Rocha EOS # 0.00 103/ul Normal 0.00-0.70 [facility] Comment on above: Performed By: #### C DWAINE ####[facility] Cyjmgupkbt4152 [place], [place] [address]Xz. Ricardo Rocha EOS% 0.0 % Critically low 0.9-7.0 [facility] Comment on above: Performed By: #### C DWAINE ####[facility] Dtnlylacry0211 [place] [id number]. Ricardo Rocha HCT 32.6 % Critically low 36.0-48.0 [facility] Comment on above: Performed By: #### C DWAINE ####[facility] Jtjkiweugr4856 [place] [address]Dr. Ricardo Rocha HGB 10.5 g/dl Critically low 12.0-16.0 [facility] Comment on above: Performed By: #### C DWAINE ####[facility] Etdeyxjpbs0438 [place] [address]Dr. Ricardo Rocha LYMPHM # 0.46 103/ul Critically low 1.20-3.80 [facility] Comment on above: Performed By: #### C DWAINE ####[facility] Wsdhyshjoz1235 [place] [address]Dr. Ricardo Rocha LYMPHM% 5.0 % Critically low 20.5-60.0 [facility] Comment on above: Performed By: #### C DWAINE ####[facility] Khhruoisrt5160 [place] [id number]. Ricardo Rocha MCH 25.3 pg Critically low 26.7-34.0 [facility] Comment on above: Performed By: #### C DWAINE ####[facility] Rgqughgumy6440 [place] [id number]. Ricardo Rocha MCHC 32.2 g/dl Normal 29.9-35.2 [facility] Comment on above: Performed By: #### C DWAINE ####[facility] Cyfuihqeed1957 [place] [address]Dr. Ricardo Rocha MCV 78.6 fL Critically low 81.0-99.0 [facility] Comment on above: Performed By: #### C DWAINE ####[facility] Ckfsytavzh3251 [place] [address]Dr. Ricardo Rocha METAMYELOCYTE # Normal [facility] Comment on above: Performed By: #### Esteban ISIDRO ####[facility] Bgfohslipw7[address] [place], [place] [address]Dr. Ricardo Rocha METAMYELOCYTE % Normal [facility] Comment on above: Performed By: #### Esteban ISIDRO ####[facility] Txvtgrdcmq59[address] [place], [place] [address]Dr. Ricardo Rocha MONOM# 0.28 103/ul Critically low 0.30-0.80 [facility] Comment on above: Performed By: #### Esteban ISIDRO ####[facility] Kdpbaanhzy6[address] [place], [place] [address]Dr. Ricardo Rocha MONOM% 3.0 % Normal 1.7-12.0 [facility] Comment on above: Performed By: #### Esteban ISIDRO ####[facility] Lnjubqnbvm0084 [place] [address]Dr. Ricardo Rocha MPV 11.4 fL Normal 9.5-13.5 [facility] Comment on above: Performed By: #### Esteban ISIDRO ####[facility] Vffjgpsbug[address] [place], [place] [address]Dr. Ricardo Rocha MYELOCYTE # Normal [facility] Comment on above: Performed By: #### Esteban ISIDRO ####[facility] Bizzwdhjno[address] [place], [place] [address]Dr. Ricardo Rocha MYELOCYTE % Normal [facility] Comment on above: Performed By: #### Esteban ISIDRO ####[facility] Tqdzbvdldi8137 [place], [place] [address]Zq. Ricardo Rocha NRBC Normal [facility] Comment on above: Performed By: #### C DWAINE ####[facility] Vxizstugpm3489 [place] [id number]. Ricardo Rocha PLT 154 103/ul Normal 150-450 [facility] Comment on above: Performed By: #### C DWAINE ####[facility] Hetzxijifc0001 [place] [address]Dr. Ricardo Rocha RBC 4.15 106/ul Critically low 4.20-5.40 [facility] Comment on above: Performed By: #### C DWAINE ####[facility] Snbwfbwyfr1371 [place] [address]Dr. Ricardo Rocha RDW 12.8 % Normal 11.0-15.0 [facility] Comment on above: Performed By: #### Esteban ISIDRO ####[facility] Mjibthpoxs[address] [place], [place] [address]Dr. Ricardo Rocha SEG # 7.36 103/ul Critically high 1.40-6.50 [facility] Comment on above: Performed By: #### Esteban ISIDRO ####[facility] Ooaheuvjeq7180 [place] [address]Dr. Ricardo Rocha SEG % 80.0 % Critically high 43.0-75.0 [facility] Comment on above: Performed By: #### Esteban ISIDRO ####[facility] Eshnikhaez[address] [place], [place] [address]Dr. Ricardo Rocha WBC 9.2 103/ul Normal 4.0-11.0 [facility] Comment on above: Performed By: #### Esteban ISIDRO ####[facility] Sxqitxhqyy47[address] [place], [place] [address]Dr. Ricardo Rocha CT HEAD WO CONon 06-11-2022 CT HEAD WO CON Normal [facility] CULTURE ANAEROBICon 06-11-20 CULTURE ANAEROBIC Culture Observations : NO GROWTH OF ANAEROBES AT 72 HOURS. Normal [facility] Comment on above: Performed By: #### A NACX ####[facility] Frndflidxc6258 [place], [place] [address]Bq. Ricardo Rocha CULTURE ANAEROBIC Culture Observations : NO GROWTH OF ANAEROBES AT 72 HOURS. Normal [facility] Comment on above: Performed By: #### A NACX ####[facility] Ryiyugvzma6949 [place], [place] [address]Er. Ricardo Rocha CULTURE BLOODon 06-11-2022 Microscopic examination of blood, culture Culture Observations: Aerobic bottle positive only. Culture Observations: No growth at 5 days in anaerobic bottle Culture Observations: See for Susceptibility testing. Isolate 1 Staphylococcus aureus Growth of Normal [facility] Comment on above: Performed By: #### B LDCX2 ####[facility] Qqhkpjzmrz1306 [place] [address]Dr. Ricardo Rocha CULTURE URINEon 06-11-2022 CULTURE URINE Culture Observations : LIGHT GROWTH OF MIXED GENITAL SHAHLA. NO POTENTIAL PATHOGENS SEEN. Normal [facility] Comment on above: Performed By: #### U RCX ####[facility] Xhciopnzmj0455 [place] [address]Dr. [facility] [place] Covid-19 PCR (CVDTB)on 05-22 SARS-CoV-2 (COVID-19) RNA ADRIEL+probe Ql (Unsp spec) Not detected Normal NOT DETECTED [facility] Comment on above: Result [...] for this test is supported by the [place] of Health and Human Service's declaration that [...] be used). Performed By: #### C VDTB ####[facility] Kfzghazxkn4322 [place] [address]Dr. Ricardo Rocha ER URINE PROFILEon 2 Bilirubin Ql (U) Negative Normal NEGATIVE [facility] Comment on above: Performed By: #### Jennifer HINOJOSA UMICRO ####[facility] Btciaquyta3659 [place] [address]Dr. Nanomarcial Aj Clarity (U) CLEAR Normal CLEAR [facility] Comment on above: Performed By: #### Jennifer HINOJOSA UMICRO ####[facility] Bfocnlqosq6[address] [place], [place] [address]Dr. Ricardo Aj Color (U) LT. YELLOW Normal YELLOW [facility] Comment on above: Performed By: #### Jennifer HINOJOSA UMICRO ####[facility] Mmkrufjvaw95[address] [place], [place] [address]Dr. Ricardo Rocha ERUAHD A micrscopic examina tion will be performed if indicated. Normal [facility] Comment on above: Performed By: #### Jennifer HINOJOSA UMICRO ####[facility] Fjyvdvkkph79[address] [place], [place] [address]Dr. Ricardo Rocha Glucose Ql (U) >1000 Abnormal NEGATIVE [facility] Comment on above: Performed By: #### Jennifer HINOJOSA UMICRO ####[facility] Blnxgoaibe2636[address] [place], [place] [address]Dr. Ricardo Rocha Hemoglobin Ql (U) LARGE Abnormal NEGATIVE [facility] Comment on above: Performed By: #### Jennifer HINOJOSA UMICRO ####[facility] Kefcearsfr8737 [place] [address]Dr. Ricardo Rocha Ketones Ql (U) 15 mg/dl Abnormal NEGATIVE [facility] Comment on above: Performed By: #### Jennifer HINOJOSA UMICRO ####[facility] Ycszrgzxtt85[address] [place], [place] [address]Dr. Ricardo Rocha LEUKOCYTES Negative Normal NEGATIVE [facility] Comment on above: Performed By: #### JOSLYN ELENARO ####[facility] Vvpaibyugu1701 [place] [address]Dr. Ricardo Rocha Nitrite Ql (U) Negative Normal NEGATIVE [facility] Comment on above: Performed By: #### JOSLYN ELENARO ####[facility] Cdbegedmne9093 [place] [address]Dr. Ricardo Rocha pH (U) 6.0 [pH] Normal 5-9 [facility] Comment on above: Performed By: #### JOSLYN ELENARO ####[facility] Bnaeoqrgkj0123 [place] [address]Dr. Ricardo Rocha Protein (U) [Mass/Vol] 100 mg/dL Abnormal NEGATIVE/ TRACE [facility] Comment on above: Performed By: #### Jennifer HINOJOSA YESENIARO ####[facility] Ijslxyzhbr2[address] [place], [place] [address]Dr. Ricardo Rocha SPEC GRAVITY 1.020 Normal 1.005-<=1.0 25 [facility] Comment on above: Performed By: #### JOSLYN ELENARO ####[facility] Wwiqpvxnlv84[address] [place], [place] [address]Dr. Ricardo Rocha UR MICRO IND INDICATED Normal [facility] Comment on above: Performed By: #### Jennifer HINOJOSA YESENIARO ####[facility] Sraahhscvb16[address] [place], [place] [address]Dr. Ricardo Rocha Urobilinogen Qn (U) 0.2 {Madeleine'U}/dL Normal 0.2 - 1. 0 [facility] Comment on above: Performed By: #### Jennifer HINOJOSA YESENIARO ####[facility] Jvldfacfrl1078 [place] [address]Dr. Ricardo Rocha GRAM STAINon 06-11-2022 DIPHTHEROIDS Normal [facility] Comment on above: Performed By: #### G STAIN ####[facility] Dwbtpgefpy69[address] [place], [place] [address]Dr. Ricardo Rocha EPITHELIALS Normal [facility] Comment on above: Performed By: #### G STAIN ####[facility] Sonktjjjhu5[address] [place], [place] [address]Dr. Ricardo Rocha FUNGAL ELEMENTS Normal [facility] Comment on above: Performed By: #### G STAIN ####[facility] Fqyqfjidaa5197 [place] [address]Dr. Ricardo Rocha GRAM NEG BACILLI Normal [facility] Comment on above: Performed By: #### G STAIN ####[facility] Muxafpgtom1193 [place] [address]Dr. Ricardo Rocha GRAM NEG DIPPLOCOCCI Normal [facility] Comment on above: Performed By: #### G STAIN ####[facility] Iooujbzsbt8868 [place] [address]Dr. Ricardo Rocha GRAM POS BACILLI Normal [facility] Comment on above: Performed By: #### G STAIN ####[facility] Kvwvjuegef4971 [place] [address]Dr. iRcardo Rocha GRAM POSITIVE COCCI MANY Normal [facility] Comment on above: Performed By: #### G STAIN ####[facility] Ccbdmbhuxe[address] [place], [place] [address]Dr. Ricardo Rocha GRAM STAIN SOURCE Left great toe tissu e after washout-clean Normal [facility] Comment on above: Performed By: #### G STAIN ####[facility] Nbyiopdndy9[address] [place], [place] [address]Dr. Ricardo Rocha GS_DIPTH Normal [facility] Comment on above: Performed By: #### G STAIN ####[facility] Aheyyzttwa2295 [place] [address]Dr. Ricardo Rocha WBC RARE Normal [facility] Comment on above: Performed By: #### G STAIN ####[facility] Mukmtwcgrj3222 [place] [address]Dr. Ricardo Rocha DIPHTHEROIDS Normal [facility] Comment on above: Performed By: #### G STAIN ####[facility] Socpqvctdf1993 [place] [address]Dr. Ricardo Rocha EPITHELIALS Normal [facility] Comment on above: Performed By: #### G STAIN ####[facility] Fdimwmuhzo9952 [place] [address]Dr. Ricardo Rocha FUNGAL ELEMENTS Normal [facility] Comment on above: Performed By: #### G STAIN ####[facility] Ijuegjkslf1724 [place] [address]Dr. Ricardo Rocha GRAM NEG BACILLI Normal [facility] Comment on above: Performed By: #### G STAIN ####[facility] Wkrihcfloa5522 [place] [address]Dr. Ricardo Rocha GRAM NEG DIPPLOCOCCI Normal [facility] Comment on above: Performed By: #### G STAIN ####[facility] Bbsoowzwqi8445 [place] [address]Dr. Ricardo Rocha GRAM POS BACILLI Normal [facility] Comment on above: Performed By: #### G STAIN ####[facility] Uofztnpmvg13[address] [place], [place] [address]Dr. Ricardo Rocha GRAM POSITIVE COCCI RARE Normal [facility] Comment on above: Performed By: #### G STAIN ####[facility] Nltjzhnvam20[address] [place], [place] [address]Dr. Ricardo Rocha GRAM STAIN SOURCE Left great toe Normal [facility] Comment on above: Performed By: #### G STAIN ####[facility] Zbsjvkpsrv09[address] [place], [place] [address]Dr. Ricardo Rocha GS_DIPTH Normal [facility] Comment on above: Performed By: #### G STAIN ####[facility] Eckcgxyvql[address] [place], [place] [address]Dr. Ricardo Rocha WBC RARE Normal [facility] Comment on above: Performed By: #### G STAIN ####[facility] Ppbbmvyzts0827 [place] [address]Dr. Ricardo Rocha DIPHTHEROIDS Normal [facility] Comment on above: Performed By: #### G STAIN ####[facility] Epwooqaxdz32[address] [place], [place] [address]Dr. Ricardo Rocha EPITHELIALS Normal [facility] Comment on above: Performed By: #### G STAIN ####[facility] Jowaxfijtl88[address] [place], [place] [address]Dr. Ricardo Rocha FUNGAL ELEMENTS Normal [facility] Comment on above: Performed By: #### G STAIN ####[facility] Rthflouwxx3559 [place] [address]Dr. Ricardo Rocha GRAM NEG BACILLI Normal [facility] Comment on above: Performed By: #### G STAIN ####[facility] Pbqhnyactr2034 [place] [address]Dr. Ricardo Rocha GRAM NEG DIPPLOCOCCI Normal [facility] Comment on above: Performed By: #### G STAIN ####[facility] Aclwwmcqkb1416 [place] [address]Dr. Ricardo Rocha GRAM POS BACILLI Normal [facility] Comment on above: Performed By: #### G STAIN ####[facility] Gswawnejik[address] [place], [place] [address]Dr. Ricardo Rocha GRAM POSITIVE COCCI FEW Normal [facility] Comment on above: Performed By: #### G STAIN ####[facility] Nmwpklrred7[address] [place], [place] [address]Dr. Ricardo Rocha GRAM STAIN SOURCE Left great toe abscess Normal [facility] Comment on above: Performed By: #### G STAIN ####[facility] Gekacvjltb8[address] [place], [place] [address]Dr. Ricardo Rocha GS_DIPTH Normal [facility] Comment on above: Performed By: #### G STAIN ####[facility] Zyytpmlvxd427718 [address] [address] [place], [place] [address]Dr. Ricardo Rocha WBC FEW Normal [facility] Comment on above: Performed By: #### G STAIN ####[facility] [address] [place], [place] [address]Dr. Ricardo Rocha LACTATE/LACTIC ACIDon 2021 Lactate [Moles/Vol] 2.2 mmol/L Critically high 0.4-1.9 [facility] Comment on above: Performed By: #### L ACT ####[facility] Xriks[address]sw[address] [place], [place] [address]Dr. Ricardo Rocha POINT OF CARE GLUCOSEon 05-22 Glucose [Mass/Vol] 133 mg/dL Critically high 74-106 T [facility] Comment on above: Performed By: #### P OCGLUC ####[facility] [address] [place] [id number]. Ricardo Rocha Glucose [Mass/Vol] 215 mg/dL Critically high -106 [facility] Comment on above: Performed By: #### P OCGLUC ####[facility] S[address] [place] [id number]. Ricardo Rocha Glucose [Mass/Vol] 207 mg/dL Critically high 74-106 [facility] Comment on above: Performed By: #### P OCGLUC ####[facility] Vgbtaptmpx[address] [place] [id number]. Ricardo Rocha Glucose [Mass/Vol] 314 mg/dL Critically high -106 [facility] Comment on above: Performed By: #### P OCGLUC ####[facility] [address] [place] [address]Dr. Ricardo Rocha Glucose [Mass/Vol] 496 mg/dL Critically high -106 [facility] Comment on above: Performed By: #### P OCGLUC ####[facility] [address] [place] [address]Dr. Ricardo Rocha Glucose [Mass/Vol] 561 mg/dL Critically high -106 [facility] Comment on above: Result Comment: Prev iously Confirmed Performed By: #### P OCGLUC ####[facility] [address] [place] [address]Dr. Ricardo Rocha PROF 14(COMP METB)on 022 Albumin [Mass/Vol] 2.4 g/dL Critically low 3.4-5.0 Th [facility] Comment on above: Performed By: #### C MP ####[facility] [address] [place] [address]Dr. Nanomarcial Aj Albumin/Globulin [Mass ratio] 0.4 {ratio} Normal [facility] Comment on above: Performed By: #### C MP ####[facility] Rq[address] [place] [id number]. Ricardo Aj ALP [Catalytic activity/Vol] 82 U/L Normal 46-116 [facility] Comment on above: Performed By: #### C MP ####[facility] [address]ft[address] [place] [id number]. Ricardo Rocha ALT [Catalytic activity/Vol] 12 U/L Critically low 14-59 [facility] Comment on above: Performed By: #### C MP ####[facility] [address] [place] [id number]. Ricardo Rocha Anion gap [Moles/Vol] 15.1 mmol/L Normal Th e [facility] Comment on above: Performed By: #### C MP ####[facility] Euoqmwkinu[address] [place] [phone]. Ricardo Rocha AST [Catalytic activity/Vol] 14 U/L Critically low 15-37 [facility] Comment on above: Performed By: #### C MP ####[facility] [address] [place] [address]Dr. Ricardo Aj Bilirubin [Mass/Vol] 0.4 mg/dL Normal 0.2-1.0 [facility] Comment on above: Performed By: #### C MP ####[facility] Wfrex[address]itc[address] [place] [id number]. Ricardo Aj Calcium [Mass/Vol] 8.8 mg/dL Normal 8.5-10.1 [facility] Comment on above: Performed By: #### C MP ####[facility] [address] [place] [address]Dr. Nanomarcial Aj Chloride [Moles/Vol] 105 mmol/L Normal 98-107 [facility] Comment on above: Performed By: #### C MP ####[facility] Sw[address]upxk[address] [place] [phone]. Ricardo Aj CO2 [Moles/Vol] 21.2 mmol/L Normal 21.0-32.0 [facility] Comment on above: Performed By: #### C MP ####[facility] [address]cs[address] [place] [phone]. Ricardo Rocha Creatinine [Mass/Vol] 2.03 mg/dL Critically high 0.55-1.02 [facility] Comment on above: Performed By: #### C MP ####[facility] [address]cdg[address] [place] [phone]. Ricardo Rocha EGFR-AF MALIAN 30 mL/min/1.73m2 Critically low >=60 [facility] Comment on above: Performed By: #### C MP ####[facility] Hgbyj[address]oy[address] [place] [phone]. Ricardo Rocha EGFR-NON AF MALIAN 25 mL/min/1.73m2 Critically low >=60 [facility] Comment on above: Performed By: #### C MP ####[facility] K[address]zbjp[address]jj[address] [place] [phone]. Ricardo Aj Globulin (S) [Mass/Vol] 5.7 g/dL Normal [facility] Comment on above: Performed By: #### C MP ####[facility] [address]ufju[address] [place] [address]Dr. Ricardo Aj Glucose [Mass/Vol] 309 mg/dL Critically high 74-106 [facility] Comment on above: Performed By: #### C MP ####[facility] [address]xw[address]teuwju[address] [place] [phone]. Ricardo Aj Potassium [Moles/Vol] 3.3 mmol/L Critically low 3.5-5.1 [facility] Comment on above: Performed By: #### C MP ####[facility] Tsjcohpiwh[address] [place] [phone]. Ricardo Aj Protein [Mass/Vol] 8.1 g/dL Normal 6.4-8.2 [facility] Comment on above: Performed By: #### C MP ####[facility] Yfswtfjyis[address] [place] [phone]. Ricardo Aj Sodium [Moles/Vol] 138 mmol/L Normal 136-145 [facility] Comment on above: Performed By: #### C MP ####[facility] K[address]ft[address]psq[address] [place] [phone]. Ricardo Aj Urea nitrogen [Mass/Vol] 37.0 mg/dL Critically high 7.0-18.0 [facility] Comment on above: Performed By: #### C MP ####[facility] [address] [place] [address]Dr. Ricardo Rocha Urea nitrogen/Creatinine [Mass ratio] 18.2 mg/mg Normal [facility] Comment on above: Performed By: #### C MP ####[facility] [address] [place] [address]Dr. Ricardo Rocha SED RATE WESTERGRENon 2021 SED RATE >130 Critically high <=30 [facility] Comment on above: Performed By: #### S EDR ####[facility] Giysumbrnw[address] [place], [place] [address]Dr. Ricardo Rocha URINE MICROSCOPIC ONLYon AMORPHOUS CRYSTALS MODERATE Normal [facility] Comment on above: Performed By: #### Jennifer HINOJOSA UMICRO ####[facility] [address]zt[address]jcml[address] [place], [place] [address]Dr. Ricardo Rocha BACTERIA MODERATE Abnormal NONE SEEN [facility] Comment on above: Performed By: #### Jennifer HINOJOSA UMICRO ####[facility] Rdwiqkvnxr[address] [place], [place] [address]Dr. Ricardo Rocha Bacteria identified Cx Nom (U) INDICATED Normal [facility] Comment on above: Performed By: #### Jennifer HINOJOSA UMICRO ####[facility] [address]be[address] [place] [address]Dr. Ricardo Rocha CAST NONE SEEN Normal NONE SEEN [facility] Comment on above: Performed By: #### Jennifer HINOJOSA UMICRO ####[facility] Unuegsiasb[address] [place] [address]Dr. Ricardo Rocha Crystals LM Nom (Urine sed) SEEN Abnormal NONE SEEN [facility] Comment on above: Performed By: #### Jennifer HINOJOSA UMICRO ####[facility] J[address]tywld[address] [place] [address]Dr. Ricardo Rocha Epithelial cells LM Ql (Urine sed) NONE SEEN Normal NONE SEEN /RARE [facility] Comment on above: Performed By: #### eJnnifer HINOJOSA UMICRO ####[facility] Mt[address]xx[address]nyxk[address] [place] [address]Dr. Ricardo Rocha MUCOUS NONE SEEN Normal NONE SEEN [facility] Comment on above: Performed By: #### SHAYNA ELENA ####[facility] Y[address]yrf[address] [place] [address]Dr. Ricardo Rocha RBC 2-5 Abnormal 0-2 [facility] Comment on above: Performed By: #### SHAYNA ELENA ####[facility] Al[address]ok[address] [place] [address]Dr. Ricardo Rocha WBC 5-10 Abnormal NONE SEEN [facility] Comment on above: Performed By: #### SHAYNA ELENA ####[facility] [address]ecs[address] [place], [place] [address]Dr. Ricardo Rocha XR CHEST 1 Von 06-11-2022 XR CHEST 1 V Normal [facility] XR FOOT LT MIN 3 VIEWSon XR FOOT LT MIN 3 VIEWS Normal [facility] XR FOOT LT MIN 3 VIEWS Normal [facility] ACETONE SERUMon 06-10-2022 ACETONE Negative Normal NEGATIVE [facility] Comment on above: Performed By: #### A CETON ####[facility] M[address]dxnz[address]vs[address] [place], [place] [address]Dr. Ricardo Rocha AMMONIAon 06-10-2022 Ammonia (P) [Mass/Vol] ug/dL Critically low 11-32 [facility] Comment on above: Performed By: #### A MM ####[facility] Dwphqrrkle[address] [place], [place] [address]Dr. Ricardo Rocha BLOOD CULTURE ID PANELon A. baumannii Not detected Normal NOT DETECTED [facility] Comment on above: Performed By: #### B CID2 ####[facility] Rebqijckhe[address] [place], [place] [address]Dr. Ricardo Rocha Bacteriodes fragilis Not detected Normal NOT DETECTED [facility] Comment on above: Performed By: #### B CID2 ####[facility] Salqylqupz[address] [place], [place] [address]Dr. Ricardo Rocha BCID CONTROLS PASSED Normal [facility] Comment on above: Performed By: #### B CID2 ####[facility] [address]kt[address] [place] [address]Dr. Ricardo Rocha BCIDBTHD BLOOD CULTURE BOTTLE INFORMATION [facility] Comment on above: Performed By: #### B CID2 ####[facility] Bneg[address]imeqx[address] [place] [address]Dr. Yimarcial Rocha BCIDHD1 ANTIMICROBIAL RESIST ANCE GENES [facility] Comment on above: Performed By: #### B CID2 ####[facility] Xcxcvtclyq[address] [place] [address]Dr. Ricardo Rocha BCIDHD2 SEE BELOW [facility] Comment on above: Result Comment: Note : Antimicrobial resitance can occur via multiple mechanisms. A Not Detected result for the PelikonArray antomicrobial resistance gene assays does not indicate antimicrobial susceptibility. Subculturing is required for species identification and susceptibility testing of isolates. Performed By: #### B CID2 ####[facility] Y[address] [place], [place] [address]Dr. Ricardo Rocha BCIDHD3 Positive [facility] Comment on above: Performed By: #### B CID2 ####[facility] V[address]armlbtl[address] [place], [place] [address]Dr. Ricardo Rocha BCIDHD4 Negative [facility] Comment on above: Performed By: #### B CID2 ####[facility] Yuwvdaidqz6[address] [place] [address]Dr. Ricardo Rocha BCIDHD5 YEAST [facility] Comment on above: Performed By: #### B CID2 ####[facility] Djgipqfzis[address] [place] [address]Dr. Ricardo Rocha Bottle Set: Set 1 [place] [facility] Comment on above: Performed By: #### B CID2 ####[facility] Bimoqxbbml[address] [place], [place] [address]Dr. Ricardo Rocha Bottle: Aerobic Normal [facility] Comment on above: Performed By: #### B CID2 ####[facility] Kduurqfqcm[address] [place], [place] [address]Dr. Ricardo Rocha C. neoformans/gattii Not detected Normal NOT DETECTED [facility] Comment on above: Performed By: #### B CID2 ####[facility] Jzxapylhcz[address] [place], [place] [address]Dr. Yimarcial Rocha Lauren albicans Not detected Normal NOT DETECTED [facility] Comment on above: Performed By: #### B CID2 ####[facility] Zsksuiyzmm[address] [place], [place] [address]Dr. Yilan Rocha Lauren auris Not detected Normal NOT DETECTED [facility] Comment on above: Performed By: #### B CID2 ####[facility] Zhphuxwzud4[address] [place], [place] [address]Dr. Yilan Rocha Lauren glabrata Not detected Normal NOT DETECTED [facility] Comment on above: Performed By: #### B CID2 ####[facility] Olrnxztfdq5[address] [place], [place] [address]Dr. [facility] Lauren Krusei Not detected Normal NOT DETECTED [facility] Comment on above: Performed By: #### B CID2 ####[facility] Iclkxmopfn6[address] [place], [place] [address]Dr. Yimarcial [facility] Lauren Parapsilosis Not detected Normal NOT DETECTED [facility] Comment on above: Performed By: #### B CID2 ####[facility] Mbwhdysqzp[address] [place], [place] [address]Dr. Yimarcial [facility] Lauren Tropicalis Not detected Normal NOT DETECTED [facility] Comment on above: Performed By: #### B CID2 ####[facility] Nmxyqqycsl[address] [place], [place] [address]Dr. Ricardo [facility] CTX-M Resistant Gene Not Applicable Normal NOT DETECTED [facility] Comment on above: Performed By: #### B CID2 ####[facility] Fqrilyosfh[address] [place], [place] [address]Dr. Yimarcial Rocha E. Cloacae complex Not detected Normal NOT DETECTED [facility] Comment on above: Performed By: #### B CID2 ####[facility] Mryxxqdduh[address] [place], [place] [address]Dr. Yimarcial Rocha E. faecalis Not detected Normal NOT DETECTED [facility] Comment on above: Performed By: #### B CID2 ####[facility] Gsbplexpbw[address] [place], [place] [address]Dr. Ricardo Rocha E. faecium Not detected Normal NOT DETECTED [facility] Comment on above: Performed By: #### B CID2 ####[facility] Pfpwliuzac[address] [place], [place] [address]Dr. Yilan Rocha Enterobacteriaceae Not detected Normal NOT DETECTED [facility] Comment on above: Performed By: #### B CID2 ####[facility] Ywqphziilh[address] [place], [place] [address]Dr. Yimarcial Rocha Escherichia coli Not detected Normal NOT DETECTED [facility] Comment on above: Performed By: #### B CID2 ####[facility] Phiqrwygtm[address] [place], [place] [address]Dr. Ricardo Rocha H. influenzae Not detected Normal NOT DETECTED [facility] Comment on above: Performed By: #### B CID2 ####[facility] Veahwnpsqe[address] [place], [place] [address]Dr. Ricardo Rocha IMP Resistant Gene Not Applicable Normal NOT DETECTED [facility] Comment on above: Performed By: #### B CID2 ####[facility] Klbqekeaiw[address] [place], [place] [address]Dr. Yimarcial Rocha K. oxytoca Not detected Normal NOT DETECTED [facility] Comment on above: Performed By: #### B CID2 ####[facility] Ocrsbnkcpc[address] [place], [place] [address]Dr. Yilan Rocha K. pneumoniae Not detected Normal NOT DETECTED [facility] Comment on above: Performed By: #### B CID2 ####[facility] Cunxhyudvt[address] [place], [place] [address]Dr. Yilan Rocha Klebsiella aerogenes Not detected Normal NOT DETECTED [facility] Comment on above: Performed By: #### B CID2 ####[facility] Tmycexyzjw13[address] [place], [place] [address]Dr. Ricardo Rocha KPC Resistant Gene Not Applicable Normal NOT DETECTED [facility] Comment on above: Performed By: #### B CID2 ####[facility] Lngutamjoy39[address] [place], [place] [address]Dr. Ricardo Rocha List. monocytogenes Not detected Normal NOT DETECTED [facility] Comment on above: Performed By: #### B CID2 ####[facility] Modmfmlaft[address] [place], [place] [address]Dr. Ricardo Rocha Mcr-1 Resistant Gene Not Applicable Normal NOT DETECTED [facility] Comment on above: Performed By: #### B CID2 ####[facility] Kuwblbysxt89[address] [place], [place] [address]Dr. Ricardo Rocha mecA/C Not Applicable Normal NOT DETECTED [facility] Comment on above: Performed By: #### B CID2 ####[facility] Byrlqhzvpy[address] [place], [place] [address]Dr. Ricardo Rocha mecA/C MREJ Detected Abnormal NOT DETECTED [facility] Comment on above: Performed By: #### B CID2 ####[facility] Cuoyorvpmm97[address] [place], [place] [address]Dr. Ricardo Rocha N. meningitidis Not detected Normal NOT DETECTED [facility] Comment on above: Performed By: #### B CID2 ####[facility] Vjolbklkqk[address] [place], [place] [address]Dr. Ricardo Rocha NDM Resistant Gene Not Applicable Normal NOT DETECTED [facility] Comment on above: Performed By: #### B CID2 ####[facility] Xqkiimself14[address] [place], [place] [address]Dr. Ricardo Rocha Oxa-48-like Not Applicable Normal NOT DETECTED [facility] Comment on above: Performed By: #### B CID2 ####[facility] Wactilqjpx[address] [place], [place] [address]Dr. Ricardo Rocha Proteus Not detected Normal NOT DETECTED [facility] Comment on above: Performed By: #### B CID2 ####[facility] Jefgmxnyoy[address] [place], [place] [address]Dr. Ricardo Rocha Pseud. aeruginosa Not detected Normal NOT DETECTED [facility] Comment on above: Performed By: #### B CID2 ####[facility] Cirrmqhpwu[address] [place], [place] [address]Dr. Ricardo Rocha S. maltophilia Not detected Normal NOT DETECTED [facility] Comment on above: Performed By: #### B CID2 ####[facility] Frupewqskq[address] [place], [place] [address]Dr. Ricardo Rocha Salmonella Not detected Normal NOT DETECTED [facility] Comment on above: Performed By: #### B CID2 ####[facility] Ncskvczvkr[address] [place], [place] [address]Dr. Ricardo Rocha Seratia marcescens Not detected Normal NOT DETECTED [facility] Comment on above: Performed By: #### B CID2 ####[facility] Ybsjjnktqb40[address] [place], [place] [address]Dr. Ricardo Rocha Site: LEFT AC IV START Normal [facility] Comment on above: Performed By: #### B CID2 ####[facility] Jtkxhexiji[address] [place], [place] [address]Dr. Nanomarcial Rocha Staph. aureus Detected Critically abnormal NOT DETECTED [facility] Comment on above: Performed By: #### B CID2 ####[facility] Myaqxvdklp[address] [place], [place] [address]Dr. Ricardo Rocha Staph. epidermidis Not detected Normal NOT DETECTED [facility] Comment on above: Performed By: #### B CID2 ####[facility] Rvvhcxgrys[address] [place], [place] [address]Dr. Ricardo Rocha Staph. lugdunensis Not detected Normal NOT DETECTED [facility] Comment on above: Performed By: #### B CID2 ####[facility] Khtdblitbs64[address] [place], [place] [address]Dr. Ricardo Rocha Staphylococcus Detected Critically abnormal NOT DETECTED [facility] Comment on above: Performed By: #### B CID2 ####[facility] Vowhqmjtie[address] [place], [place] [address]Dr. Ricardo Rocha Strep. agalactiae Not detected Normal NOT DETECTED [facility] Comment on above: Performed By: #### B CID2 ####[facility] Hfslagsaly89[address] [place], [place] [address]Dr. Ricardo Rocha Strep. pneumoniae Not detected Normal NOT DETECTED [facility] Comment on above: Performed By: #### B CID2 ####[facility] Egaakyersr[address] [place], [place] [address]Dr. Ricardo Rocha Strep. pyogenes Not detected Normal NOT DETECTED [facility] Comment on above: Performed By: #### B CID2 ####[facility] Hppzcnqcet[address] [place], [place] [address]Dr. Ricardo Rocha Streptococcus Not detected Normal NOT DETECTED [facility] Comment on above: Performed By: #### B CID2 ####[facility] Cyiqutfayd7[address] [place], [place] [address]Dr. Ricardo Rocha Layne/B Resist. Gene Not Applicable Normal NOT DETECTED [facility] Comment on above: Performed By: #### B CID2 ####[facility] Fkdpdujuar[address] [place], [place] [address]Dr. Ricardo Rocha VIM Resistant Gene Not Applicable Normal NOT DETECTED [facility] Comment on above: Performed By: #### B CID2 ####[facility] Ewwzfaprxx[address] [place], [place] [address]Dr. Ricardo Rocha BLOOD GASES BTYon 06-10-2022 02 MODE ROOM AIR Normal [facility] Comment on above: Performed By: #### A BG ####[facility] P[address]qxgbtucs[address] [place], [place] [address]Dr. Ricardo Rocha ALLENS TEST Positive Normal [facility] Comment on above: Performed By: #### A BG ####[facility] Kwzqstzlng[address] [place], [place] [address]Dr. Ricardo Rocha Base excess Calc (Bld) [Moles/Vol] -4.5000 mmol/L Critically low -2.0-2.0 [facility] Comment on above: Performed By: #### A BG ####[facility] Cvegejhtcn[address] [place], [place] [address]Dr. Ricardo Rocha BIPAP PRESSURE Normal [facility] Comment on above: Performed By: #### A BG ####[facility] Ztriibntjf34[address] [place], [place] [address]Dr. Ricardo Rocha CPAP Normal [facility] Comment on above: Performed By: #### A BG ####[facility] Gl[address]axpheln[address] [place] [address]Dr. Ricardo Rocha FIO2 Normal [facility] Comment on above: Performed By: #### A BG ####[facility] Vupadxrecm[address] [place], [place] [address]Dr. Ricardo Rocha HCO3 (Bld) [Moles/Vol] 21.4 mmol/L Critically low 22.0-26.0 [facility] Comment on above: Performed By: #### A BG ####[facility] [address]kdwsawjcy[address] [place], [place] [address]Dr. Ricardo Rocha LPM Normal [facility] Comment on above: Performed By: #### A BG ####[facility] Kfijykocwu[address] [place], [place] [address]Dr. Ricardo Rocha MINUTE VOLUME Normal [facility] Comment on above: Performed By: #### A BG ####[facility] Imvrutfdgw[address] [place], [place] [address]Dr. Ricardo Rocha Oxygen (Bld) [Partial pressure] 66.4 mm[Hg] Critically low 80.0-100.0 [facility] Comment on above: Performed By: #### A BG ####[facility] Nnkrlbueja[address] [place], [place] [address]Dr. Ricardo Rocha Oxygen saturation in Blood 94.6 % Critically low 95.0-100.0 [facility] Comment on above: Performed By: #### A BG ####[facility] Cbyccdnpnf[address] [place], [place] [address]Dr. Ricardo Rocah PCO2 29.4 mmHg Critically low 35.0-45.0 [facility] Comment on above: Performed By: #### A BG ####[facility] Jfwzfulehr54[address] [place], [place] [address]Dr. Ricardo Rocha PEEP Normal [facility] Comment on above: Performed By: #### A BG ####[facility] Cwyyplxuwv[address] [place], [place] [address]Dr. Ricardo Rocha pH (Bld) 7.436 [pH] Normal 7.350-7.450 [facility] Comment on above: Performed By: #### A BG ####[facility] Etgohbomyq[address] [place] [address]Dr. Ricardo Rocha PIP Normal [facility] Comment on above: Performed By: #### A BG ####[facility] Qijbhpgxea7155 [place] [address]Dr. Ricardo Rocha PS Normal [facility] Comment on above: Performed By: #### A BG ####[facility] Joctekklaw[address] [place] [address]Dr. Ricardo Rocha PUNCTURE SITE LR Normal [facility] Comment on above: Performed By: #### A BG ####[facility] Xvbzyplivm[address] [place], [place] [address]Dr. Ricardo Rocha RATE [facility] Comment on above: Performed By: #### A BG ####[facility] Vcxnyupjex3[address] [place], [place] [address]Dr. Ricardo Rocha VENT MODE [facility] Comment on above: Performed By: #### A BG ####[facility] Wmgtvoasbk[address] [place], [place] [address]Dr. Ricardo Rocha [place] [facility] Comment on above: Performed By: #### A BG ####[facility] Liheoippqn35[address] [place] [address]Dr. Ricardo Rocha CBC W MANUAL DIFFon 06-10-20 22 ATYPICAL LYMPH # Normal [facility] Comment on above: Performed By: #### C BCMAN ####[facility] Hivpzigina26[address] [place] [address]Dr. Ricardo Rocha ATYPICAL LYMPH % Normal [facility] Comment on above: Performed By: #### C BCMAN ####[facility] Tnaatwjygf[address] [place], [place] [address]Dr. Ricardo Rocha BAND # 1.3 103/ul Critically high 0.0-0.3 [facility] Comment on above: Performed By: #### C BCMAN ####[facility] Pkfcwlwcem[address] [place], [place] [address]Dr. Ricardo Rocha BAND % 12 % Critically high 0-5 [facility] Comment on above: Performed By: #### C BCRED ####[facility] Yhxrgsrqbl3382 [place] [address]Dr. Ricardo Rocha BASOM # 0.00 103/ul Normal 0.00-0.10 [facility] Comment on above: Performed By: #### C BCRED ####[facility] Mrskknlpms9784 [place] [address]Dr. Ricardo Rocha BASOM % 0.0 % Critically low 0.2-2.0 [facility] Comment on above: Performed By: #### C BCRED ####[facility] Zrqbpykaxc0285 [place] [address]Dr. Ricardo Rocha BLAST # Normal [facility] Comment on above: Performed By: #### C DWAINE ####[facility] Qdgjpcihle7985 [place] [address]Dr. Ricardo Rocha BLAST % Normal [facility] Comment on above: Performed By: #### C BCRED ####[facility] Bjxtftmorx4083 [place] [address]Dr. Ricardo Rocha CORRECTED WBC Normal 4.0-11.0 [facility] Comment on above: Performed By: #### C BCRED ####[facility] Vuyzbzfuxa9694 [place] [address]Dr. Ricardo Rocha EOS # 0.00 103/ul Normal 0.00-0.70 [facility] Comment on above: Performed By: #### C BCRED ####[facility] Mmavgyclqa7824 [place] [address]Dr. Ricardo Rocha EOS% 0.0 % Critically low 0.9-7.0 [facility] Comment on above: Performed By: #### C BCRED ####[facility] Npqfiaumfr2595 [place] [address]Dr. Ricardo Rocha HCT 35.5 % Critically low 36.0-48.0 [facility] Comment on above: Performed By: #### C BCRED ####[facility] Pjlwnoxytz[address] [place], [place] [address]Dr. Ricardo Rocha HGB 11.4 g/dl Critically low 12.0-16.0 [facility] Comment on above: Performed By: #### Esteban ISIDRO ####[facility] Hzqcvsffrd9617 [place] [address]Dr. Ricardo Rocha HYPERSEG NEUT 3+ Normal [facility] Comment on above: Performed By: #### Esteban ISIDRO ####[facility] Hjehaiaxeu2902 [place] [address]Dr. Ricardo Rocha LYMPHM # 0.21 103/ul Critically low 1.20-3.80 [facility] Comment on above: Performed By: #### Esteban ISIDRO ####[facility] Hnhxnkhryv22[address] [place], [place] [address]Dr. Ricardo Rocha LYMPHM% 2.0 % Critically low 20.5-60.0 [facility] Comment on above: Performed By: #### Esteban ISIDRO ####[facility] Ptozudxubq[address] [place], [place] [address]Dr. Ricardo Rocha MCH 25.3 pg Critically low 26.7-34.0 [facility] Comment on above: Performed By: #### Esteban ISIDRO ####[facility] Ictemvftxj35[address] [place], [place] [address]Dr. Ricardo Rocha MCHC 32.1 g/dl Normal 29.9-35.2 [facility] Comment on above: Performed By: #### Esteban ISIDRO ####[facility] Iukifivikc18[address] [place], [place] [address]Dr. Ricardo Rocha MCV 78.9 fL Critically low 81.0-99.0 [facility] Comment on above: Performed By: #### Esteban ISIDRO ####[facility] Lcxqvqwftj7[address] [place], [place] [address]Dr. Ricardo Rocha METAMYELOCYTE # Normal [facility] Comment on above: Performed By: #### Esteban ISIDRO ####[facility] Rfdqwqgnqk6395 [place] [address]Dr. Nanomarcial Aj METAMYELOCYTE % Normal [facility] Comment on above: Performed By: #### C DWAINE ####[facility] Wlymijtgdf4403 [place] [address]Dr. Ricardo Rocha MONOM# 0.32 103/ul Normal 0.30-0.80 [facility] Comment on above: Performed By: #### Esteban ISIDRO ####[facility] Mawpxpygmw9055 [place] [address]Dr. Ricardo Rocha MONOM% 3.0 % Normal 1.7-12.0 [facility] Comment on above: Performed By: #### Esteban ISIDRO ####[facility] Wuuhqhddge2257 [place] [address]Dr. Ricardo Rocha MPV 10.9 fL Normal 9.5-13.5 [facility] Comment on above: Performed By: #### Esteban ISIDRO ####[facility] Omqynqtfbm38[address] [place], [place] [address]Dr. Ricardo Rocha MYELOCYTE # Normal [facility] Comment on above: Performed By: #### Esteban ISIDRO ####[facility] Raczfkyxqa46[address] [place], [place] [address]Dr. Ricardo Rocha MYELOCYTE % Normal [facility] Comment on above: Performed By: #### Esteban ISIDRO ####[facility] Mxuonezkys[address] [place], [place] [address]Dr. Ricardo Rocha NRBC Normal [facility] Comment on above: Performed By: #### Esteban ISIDRO ####[facility] Mzoppaiuep[address] [place], [place] [address]Dr. Ricardo Rocha PLT 180 103/ul Normal 150-450 [facility] Comment on above: Performed By: #### Esteban ISIDRO ####[facility] Senopwwazl[address] [place], [place] [address]Dr. Ricardo Rocha RBC 4.50 106/ul Normal 4.20-5.40 [facility] Comment on above: Performed By: #### Esteban ISIDRO ####[facility] Ersdwlfpkz[address] [place], [place] [address]Dr. Ricardo Rocha RDW 12.8 % Normal 11.0-15.0 [facility] Comment on above: Performed By: #### Esteban ISIDRO ####[facility] Hkasfcdsge4225 [place] [address]Dr. Ricardo Rocha SEG # 8.71 103/ul Critically high 1.40-6.50 [facility] Comment on above: Performed By: #### C BCMAN ####[facility] Sbtrjykffu7708 [place] [address]Dr. Ricardo Rocha SEG % 83.0 % Critically high 43.0-75.0 [facility] Comment on above: Performed By: #### C BCMAN ####[facility] Voltufikwb4735 [place] [address]Dr. Ricardo Rocha TOXIC GRANULATION 2+ Normal [facility] Comment on above: Performed By: #### C BCMAN ####[facility] Tpgwyevxqx0878 [place] [address]Dr. Ricardo Rocha WBC 10.5 103/ul Normal 4.0-11.0 [facility] Comment on above: Performed By: #### C BCMAN ####[facility] Rzfybnpbua6138 [place] [address]Dr. Ricardo Rocha CULTURE BLOODon 06-10-2022 Microscopic examination of blood, culture Culture Observations: Positive blood culture. Pediatric bottle. Culture Observations: Please refer to for susceptibility testing. Isolate 1 Staphylococcus aureus Growth of Normal [facility] Comment on above: Performed By: #### B LDCX2 ####[facility] Rjoiphcaqu[address] [place], [place] [address]Dr. Ricardo Rocha LACTATE/LACTIC ACIDon 2021 Lactate [Moles/Vol] 1.9 mmol/L Normal 0.4-1.9 [facility] Comment on above: Performed By: #### L ACT ####[facility] [address]zx[address]imzg[address] [place], [place] [address]Dr. Ricardo Rocha LIPASEon 06-10-2022 Lipase [Catalytic activity/Vol] 164.0 U/L Normal 73.0-393.0 [facility] Comment on above: Performed By: #### H STROPN, LIPA, CMP, TSH ####[facility] Weqcrcopsy5098 [place] [address]Dr. Ricardo Rocha POINT OF CARE GLUCOSEon 05-22 Glucose [Mass/Vol] 583 mg/dL Critically high 74-106 [facility] Comment on above: Result Comment: Resu lt Not Confirmed Performed By: #### P OCGLUC ####[facility] Hcjebkgrcw1632 [place] [address]Dr. Ricardo Rocha PROF 14(COMP METB)on 022 Albumin [Mass/Vol] 3.0 g/dL Critically low 3.4-5.0 [facility] Comment on above: Performed By: #### H STROPN, LIPA, CMP, TSH ####[facility] Uikznsfbsl1352 [place] [address]Dr. Ricardo Rocha Albumin/Globulin [Mass ratio] 0.5 {ratio} Normal [facility] Comment on above: Performed By: #### H STROPN, LIPA, CMP, TSH ####[facility] Qncojvqxhy4318 [place] [address]Dr. Ricardo Rocha ALP [Catalytic activity/Vol] 116 U/L Normal 46-116 [facility] Comment on above: Performed By: #### H STROPN, LIPA, CMP, TSH ####[facility] Khlkcwhkun9[address] [place] [address]Dr. Ricardo Rocha ALT [Catalytic activity/Vol] 15 U/L Normal 14-59 [facility] Comment on above: Performed By: #### H STROPN, LIPA, CMP, TSH ####[facility] Sunxsymkbs9321 [place] [address]Dr. Ricardo Rocha Anion gap [Moles/Vol] 15.7 mmol/L Normal [facility] Comment on above: Performed By: #### H STROPN, LIPA, CMP, TSH ####[facility] Dknushidkh9645 [place] [address]Dr. Ricardo Rocha AST [Catalytic activity/Vol] 16 U/L Normal 15-37 [facility] Comment on above: Performed By: #### H STROPN, LIPA, CMP, TSH ####[facility] Haxiavwilu5629 [place] [address]Dr. Ricardo Rocha Bilirubin [Mass/Vol] 0.5 mg/dL Normal 0.2-1.0 [facility] Comment on above: Performed By: #### H STROPN, LIPA, CMP, TSH ####[facility] Qwuzsbottu2090 [place] [address]Dr. Ricardo Rocha Calcium [Mass/Vol] 9.4 mg/dL Normal 8.5-10.1 [facility] Comment on above: Performed By: #### H STROPN, LIPA, CMP, TSH ####[facility] Eeamebmwkr9219 [place] [address]Dr. Ricardo Rocha Chloride [Moles/Vol] 95 mmol/L Critically low 98-107 [facility] Comment on above: Performed By: #### H STROPN, LIPA, CMP, TSH ####[facility] Ksncsgtojt2487 [place] [address]Dr. Ricardo Rocha CO2 [Moles/Vol] 22.1 mmol/L Normal 21.0-32.0 [facility] Comment on above: Performed By: #### H STROPN, LIPA, CMP, TSH ####[facility] Tleicabknf2486 [place] [address]Dr. Ricardo Rocha Creatinine [Mass/Vol] 2.23 mg/dL Critically high 0.55-1.02 [facility] Comment on above: Performed By: #### H STROPN, LIPA, CMP, TSH ####[facility] Zathrkbglj3415 [place] [address]Dr. Ricardo Rocha EGFR-AF MALIAN 27 mL/min/1.73m2 Critically low >=60 [facility] Comment on above: Performed By: #### H STROPN, LIPA, CMP, TSH ####[facility] Dcaoktljni9689 [place] [address]Dr. Ricardo Rocha EGFR-NON AF MALIAN 22 mL/min/1.73m2 Critically low >=60 [facility] Comment on above: Performed By: #### H STROPN, LIPA, CMP, TSH ####[facility] Razhpdzzam2949 [place] [address]Dr. Ricardo Rocha Globulin (S) [Mass/Vol] 6.5 g/dL Normal [facility] Comment on above: Performed By: #### H STROPN, LIPA, CMP, TSH ####[facility] Bhccktfawi7377 [place] [address]Dr. Ricardo Rocha Glucose [Mass/Vol] 593 mg/dL Critically high 74-106 [facility] Comment on above: Performed By: #### H STROPN, LIPA, CMP, TSH ####[facility] Kwmvdwcerx6991 [place] [address]Dr. Ricardo Rocha Potassium [Moles/Vol] 3.8 mmol/L Normal 3.5-5.1 [facility] Comment on above: Performed By: #### H STROPN, LIPA, CMP, TSH ####[facility] Knqnhbelcx2167 [place] [address]Dr. Ricardo Rocha Protein [Mass/Vol] 9.5 g/dL Critically high 6.4-8.2 [facility] Comment on above: Performed By: #### H STROPN, LIPA, CMP, TSH ####[facility] Ydtzyyemvl3433 [place] [address]Dr. Ricardo Rocha Sodium [Moles/Vol] 129 mmol/L Critically low 136-145 [facility] Comment on above: Performed By: #### H STROPN, LIPA, CMP, TSH ####[facility] Avwxriywxw6447 [place] [address]Dr. Ricardo Rocha Urea nitrogen [Mass/Vol] 40.0 mg/dL Critically high 7.0-18.0 [facility] Comment on above: Performed By: #### H STROPN, LIPA, CMP, TSH ####[facility] Zwboohfcfz2499 [place] [address]Dr. Ricardo Rocha Urea nitrogen/Creatinine [Mass ratio] 17.9 mg/mg Normal [facility] Comment on above: Performed By: #### H STROPN, LIPA, CMP, TSH ####[facility] Gbwamucdfg5835 [place] [address]Dr. Ricardo Rocha PROTIMEon 06-10-2022 INR Coag (PPP) [Relative time] 1.00 {INR} Normal [facility] Comment on above: Performed By: #### P TT, PT ####[facility] Bjrqselttj6238 [place] [address]Dr. Ricardo Rocha INR GUIDELINES SEE BELOW Normal [facility] Comment on above: Result Comment: AMBROSIO RED INR: 2.0 - 3.0 CONDITIONS NOT LISTED BELOW 2.5 - 3.5 FOR PROSTHETIC HEART VALVE REPLACEMENT 2.5 - 3.5 RECURRENT THROMBOSIS Performed By: #### P TT, PT ####[facility] Xjuyxscmsx[address] [place], [place] [address]Dr. Ricardo Rocha PT Coag (PPP) [Time] 10.8 s Normal 9.0-11.6 [facility] Comment on above: Performed By: #### P TT, PT ####[facility] Xohdpfuazh8[address] [place], [place] [address]Dr. Ricardo Rocha PTTon 06-10-2022 aPTT Coag (Bld) [Time] 31.7 s Normal 22.3-36.2 [facility] Comment on above: Performed By: #### P TT, PT ####[facility] Mgehlhoxgb[address] [place], [place] [address]Dr. Ricardo Rocha TROPONIN, HIGH SENSITIVITYon 06-10-2022 HSTROP 30.9 pg/mL Normal 4.0-51.3 [facility] Comment on above: Result Comment: CUT- OFF POINTS HAVE BEEN ESTABLISHED BASED ON THE FOURTH UNIVERSAL DEFINITIONS OF MYOCARDIALINFARCTION. THE UPPER REFERENCE LIMIT (URL) OF TROPONIN, DEFINED THE 99TH PERCENTILE OFcTnI DISTRIBUTION IN A REFERENCE POPULATION, HAS BEEN CONFIRMED THE DECISION THRESHOLDFOR WI DIAGNOSIS. Performed By: #### H STROPN, LIPA, CMP, TSH ####[facility] Xkqnbldndw8224 [place] [address]Dr. Ricardo Rocha TSHon 06-10-2022 TSH 0.147 uIU/mL Critically low 0.358-3.[address] [facility] Comment on above: Performed By: #### H STROPN, LIPA, CMP, TSH ####[facility] Pwquxtbhqz2694 [place] [id number]. Ricardo Aj XR FOOT GURJIT MIN 3 VIEWSon XR FOOT GURJIT MIN 3 VIEWS Normal [facility] XR HAND RT MIN 3Von 06-02-20 XR HAND RT MIN 3V Normal [facility] CULTURE WOUNDon 05-15-2022 CULTURE WOUND Normal [facility] Comment on above: Performed By: #### W OUNDCX ####[facility] Vqzvxfpqym[address] [place], [place] [address]Dr. Ricardo Rocha CBC AUTO DIFFon 2022 BASO # 0.0 103/ul Normal 0.0-0.1 [facility] Comment on above: Performed By: #### C BC ####[facility] Gbpenxpfhj[address] [place], [place] [address]Dr. Ricardo Rocha Basophils/100 WBC (Bld) 0.7 % Normal 0.2-2.0 [facility] Comment on above: Performed By: #### C BC ####[facility] Yhhjvrktak68[address] [place], [place] [address]Dr. Ricardo Rocha EO # 0.1 103/ul Normal 0.0-0.7 [facility] Comment on above: Performed By: #### C BC ####[facility] Wbzljriyzs01[address] [place], [place] [address]Dr. Ricardo Rocha Eosinophils/100 WBC (Bld) 2.1 % Normal 0.9-7.0 [facility] Comment on above: Performed By: #### C BC ####[facility] Vrdjxtneek[address] [place], [place] [address]Dr. Ricardo Rocha Erythrocyte distribution width (RBC) [Ratio] 13.2 % Normal 11.0-15.0 [facility] Comment on above: Performed By: #### C BC ####[facility] Gggzfwzysh[address] [place], [place] [address]Dr. Ricardo Rocha Hematocrit (Bld) [Volume fraction] 36.6 % Normal 36.0-48.0 [facility] Comment on above: Performed By: #### C BC ####[facility] Cniwaucapo3712 [place] [address]Dr. Ricardo Rocha Hemoglobin (Bld) [Mass/Vol] 11.9 g/dL Critically low 12.0-16.0 [facility] Comment on above: Performed By: #### C BC ####[facility] Xtgwblqbqg0302 [place] [address]Dr. Ricardo Rocha IG # 0.03 10e3/ul Normal 0.00-0.03 [facility] Comment on above: Performed By: #### C BC ####[facility] Oxoclwdupf1139 [place] [address]Dr. Ricardo Aj IG % 0.5 % Normal 0.0-0.5 [facility] Comment on above: Performed By: #### C BC ####[facility] Hdeapweokk0598 [place] [address]Dr. Ricardo Rocha LYMPH # 2.1 103/ul Normal 1.2-3.8 [facility] Comment on above: Performed By: #### C BC ####[facility] Rjubivworn3117 [place] [address]Dr. Nanomarcial Rocha Lymphocytes/100 WBC (Bld) 33.8 % Normal 20.5-60.0 [facility] Comment on above: Performed By: #### C BC ####[facility] Kfrzztaxvd0914 [place] [address]Dr. Nanomarcial Rocha MANUAL DIFF REQ NO Normal [facility] Comment on above: Performed By: #### C BC ####[facility] Pbtcpbdjke2198 [place] [address]Dr. Ricardo Aj MCH (RBC) [Entitic mass] 25.7 pg Critically low 26.7-34.0 [facility] Comment on above: Performed By: #### C BC ####[facility] Piiqtjukpv1424 [place] [address]Dr. Ricardo Aj MCHC (RBC) [Mass/Vol] 32.5 g/dL Normal 29.9-35.2 [facility] Comment on above: Performed By: #### C BC ####[facility] Acmkhrksvk7775 [place] [address]Dr. Ricardo Rocha MCV (RBC) [Entitic vol] 79.0 fL Critically low 81.0-99.0 [facility] Comment on above: Performed By: #### C BC ####[facility] Znougriibf1917 [place] [address]Dr. Ricardo Rocha MONO # 0.4 103/ul Normal 0.3-0.8 [facility] Comment on above: Performed By: #### C BC ####[facility] Roiwbudtes3358 [place] [address]Dr. Ricardo Rocha Monocytes/100 WBC (Bld) 6.2 % Normal 1.7-12.0 [facility] Comment on above: Performed By: #### C BC ####[facility] Oowogmaeai[address] [place], [place] [address]Dr. Ricardo Rocha NEUT # 3.5 103/ul Normal 1.4-6.5 [facility] Comment on above: Performed By: #### C BC ####[facility] Yrcsyeywqw[address] [place], [place] [address]Dr. Ricardo Rocha Neutrophils/100 WBC (Bld) 56.7 % Normal 43.0-75.0 [facility] Comment on above: Performed By: #### C BC ####[facility] Fickjtnnnb[address] [place], [place] [address]Dr. Ricardo Rocha Platelet mean volume (Bld) [Entitic vol] 10.9 fL Normal 9.5-13.5 [facility] Comment on above: Performed By: #### C BC ####[facility] Ruyjhjyofu4527 [place] [address]Dr. Ricardo Rocha PLT 241 103/ul Normal 150-450 [facility] Comment on above: Performed By: #### C BC ####[facility] Tquctivhuj7154 [place] [address]Dr. Ricardo Aj RBC 4.63 106/ul Normal 4.20-5.40 [facility] Comment on above: Performed By: #### C BC ####[facility] Onxobgzodg6348 [place] [address]Dr. Ricardo Aj WBC 6.1 103/ul Normal 4.0-11.0 [facility] Comment on above: Performed By: #### C BC ####[facility] Ruycyschyq3793 [place] [address]Dr. Ricardo Rocha PROF CHEM 8 (BAS METB)on Anion gap [Moles/Vol] 11.8 mmol/L Normal [facility] Comment on above: Performed By: #### B MP ####[facility] Fomjntzpdo8248 [place] [address]Dr. Ricardo Rocha Calcium [Mass/Vol] 9.2 mg/dL Normal 8.5-10.1 [facility] Comment on above: Performed By: #### B MP ####[facility] Cuphdpvfze6039 [place] [address]Dr. Ricardo Rocha Chloride [Moles/Vol] 99 mmol/L Normal 98-107 [facility] Comment on above: Performed By: #### B MP ####[facility] Dmfsshscik4880 [place] [address]Dr. Nanomarcial Rocha CO2 [Moles/Vol] 24.7 mmol/L Normal 21.0-32.0 [facility] Comment on above: Performed By: #### B MP ####[facility] Fqnprgvkgf4463 [place] [address]Dr. Ricardo Rocha Creatinine [Mass/Vol] 1.48 mg/dL Critically high 0.55-1.02 [facility] Comment on above: Performed By: #### B MP ####[facility] Mezqwzxylf5997 [place] [address]Dr. Ricardo Rocha EGFR-AF MALIAN 43 mL/min/1.73m2 Critically low >=60 [facility] Comment on above: Performed By: #### B MP ####[facility] Onvketucvp8422 [place] [address]Dr. Ricardo Rocha EGFR-NON AF MALIAN 36 mL/min/1.73m2 Critically low >=60 [facility] Comment on above: Performed By: #### B MP ####[facility] Ewwptpmrij4129 [place] [phone]. Ricardo Rocha Glucose [Mass/Vol] 431 mg/dL Critically high 74-106 [facility] Comment on above: Performed By: #### B MP ####[facility] Pgwkmzbjtp5875 [place], [place] [address]Vn. Ricardo Rocha Potassium [Moles/Vol] 4.5 mmol/L Normal 3.5-5.1 [facility] Comment on above: Performed By: #### B MP ####[facility] Ouznegnopz4215 [place] [id number]. Ricardo Rocha Sodium [Moles/Vol] 131 mmol/L Critically low 136-145 [facility] Comment on above: Performed By: #### B MP ####[facility] [address] [place] [id number]. Ricardo Rocha Urea nitrogen [Mass/Vol] 23.0 mg/dL Critically high 7.0-18.0 [facility] Comment on above: Performed By: #### B MP ####[facility] [address] [place] [id number]. Ricardo Rocha Urea nitrogen/Creatinine [Mass ratio] 15.5 mg/mg Normal [facility] Comment on above: Performed By: #### B MP ####[facility] [address] [place] [id number]. Ricardo Rocha XR TOES GURJIT MIN 2 Von 2021 XR TOES GURJIT MIN [address] [facility] HEALTH 01-21-2021 ALLIED HEALTH HNO ID: [id number] Author: RT Parveen(R) Service: ? Author Type: Oil Program Compliance Specialist Type: Allied Health Filed: 01/20/2021 10:30 [...] RT(R) January 20, 2021 10:29 PM Normal [facility] Basic Metabolic Panlon 01-21 Anion gap [Moles/Vol] 7 mmol/L Low 9-18 [facility] Calcium [Mass/Vol] 8.8 mg/dL Normal 8.5-10.2 [facility] Chloride [Moles/Vol] 99 mmol/L Normal 97-105 [facility] CO2 [Moles/Vol] 25 mmol/L Normal 22-30 [facility] ital Creatinine [Mass/Vol] 1.51 mg/dL High 0.58-0.96 [facility] eGFR- Amer. 42 Normal [facility] ospital eGFR-All Other Races 35 . Normal [facility] Comment on above: Result Comment: eGFR (Estimated [...] ospital Comment on above: Result Comment: The [place] Diabetes Association (ADA) provides guidance for cutoff [...] Standards of Medical Care in Diabetes 2016, [place] [employer] Association. Diabetes Care. 2016.39(Suppl 1). Potassium [Moles/Vol] 4.7 mmol/L Normal 3.7-5.1 [facility] Sodium [Moles/Vol] 131 mmol/L Low 136-144 [facility] ospital Urea nitrogen [Mass/Vol] 42 mg/dL High 7-21 [facility] CBCon 01-21-2021 Absolute nRBC <0.01 Normal <0.01 [facility] al Erythrocyte distribution width (RBC) [Ratio] 13.1 % Normal 11.5-15.0 [facility] Hematocrit (Bld) [Volume fraction] 30.0 % Low 36.0-46.0 [facility] Hemoglobin (Bld) [Mass/Vol] 9.5 g/dL Low 11.5-15.5 [facility] MCH 24.4 pG Low 26.0-34.0 [facility] MCHC (RBC) [Mass/Vol] 31.7 g/dL Normal 30.5-36.0 [facility] MCV (RBC) [Entitic vol] 77.1 fL Low 80.0-100.0 [facility] Platelet mean volume (Bld) [Entitic vol] 11.1 fL Normal 9.0-12.7 [facility] Platelets (Bld) [#/Vol] 358 10*3/uL Normal 150-400 [facility] RBC (Bld) [#/Vol] 3.89 10*6/uL Low 3.90-5.20 [facility] WBC (Bld) [#/Vol] 9.64 10*3/uL Normal 3.70-11.00 [facility] CNDSon 01-21-2021 CNDS HNO ID: [id number] Author: Inna Hansen DO Service: Hospital Medicine [...] Team: Attending Provider: Inna Hansen DO Physician [employer] Laborer: Garrett Simon PA-C Consulting: Taurus Ballard MD [...] PCP: referred to a new PCP in [place]. Future Appointments Date Time Provider Department Center 01/29/2021 11:40 AM Taurus Ballard MD [facility] The patient's risk for 30-day readmission is determined using the following contributing factors: Pt variables contributing to increased readmission risk: 42 Most Recent (more content not included)... Normal [facility] MRI KIDNEY WO/W IVCONon 06-0 MRI KIDNEY WO/W IVCON * * *Final Report* * * DATE OF EXAM: Jan 20 2021 10:35PM [facility] 0721 - MRI KIDNEY WO/W IVCON / PROCEDURE REASON: Renal cyst * * * * Physician Interpretation * * * * EXAMINATION: MRI ABDOMEN WITHOUT AND WITH IV CONTRAST CLINICAL HISTORY: Renal mass characterization. TECHNIQUE: A renal MRI was performed on a MR system utilizing the torso phased-array coil. Pulse sequences included: axial precontrast T1 weighted in- and [id number]-[id number], axial and coronal HASTE, axial DWI with [...] be communicated with the ordering provider via [employer] staff message or phone message by Imaging Support Services within 2 business days of report finalization. Algorithms for management of incidental imaging findings can be found on the [facility] Intranet Sharepoint site at: [email or web address] [email or web address] [employer]: GUILLE Transcribe Date/Time: Jan 21 2021 8:17A Dictated by : MALLORY AHN MD This examination was interpreted and the report reviewed and electronically signed by: MALLORY AHN MD on Jan 21 2021 8:49AM EST [id number] ACTIONABLE Invalid Interpretation Code [facility] Basic Metabolic Panlon 01-20 Anion gap [Moles/Vol] 11 mmol/L Normal 9-18 [facility] Calcium [Mass/Vol] 8.7 mg/dL Normal 8.5-10.2 [facility] ospital Chloride [Moles/Vol] 97 mmol/L Normal 97-105 [facility] CO2 [Moles/Vol] 24 mmol/L Normal 22-30 [facility] ital Creatinine [Mass/Vol] 1.46 mg/dL High 0.58-0.96 [facility] eGFR- Amer. 44 Normal [facility] ospital eGFR-All Other Races 36 . Normal [facility] Comment on above: Result Comment: eGFR (Estimated [...] GFR. Glucose [Mass/Vol] 149 mg/dL High 74-99 [facility]spital Comment on above: Result Comment: The [place] Diabetes Association (ADA) provides guidance for cutoff [...] Standards of Medical Care in Diabetes 2016, [place] Diabetes [employer]. Diabetes Care. 2016.39(Suppl 1). Potassium [Moles/Vol] 3.9 mmol/L Normal 3.7-5.1 [facility] Sodium [Moles/Vol] 132 mmol/L Low 136-144 [facility]spital Urea nitrogen [Mass/Vol] 53 mg/dL High 7-21 [facility] CBCon 01-20-2021 Absolute nRBC <0.01 Normal <0.01 [facility] al Erythrocyte distribution width (RBC) [Ratio] 12.8 % Normal 11.5-15.0 [facility] Hematocrit (Bld) [Volume fraction] 27.7 % Low 36.0-46.0 [facility] Hemoglobin (Bld) [Mass/Vol] 8.9 g/dL Low 11.5-15.5 [facility] MCH 24.5 pG Low 26.0-34.0 [facility] MCHC (RBC) [Mass/Vol] 32.1 g/dL Normal 30.5-36.0 [facility] MCV (RBC) [Entitic vol] 76.3 fL Low 80.0-100.0 [facility] Platelet mean volume (Bld) [Entitic vol] 11.1 fL Normal 9.0-12.7 [facility] l Platelets (Bld) [#/Vol] 321 10*3/uL Normal 150-400 [facility] RBC (Bld) [#/Vol] 3.63 10*6/uL Low 3.90-5.20 [facility] WBC (Bld) [#/Vol] 11.05 10*3/uL High 3.70-11.00 [facility] CONSULT PROGon 01-20-2021 CONSULT PROG HNO ID: [id number] Author: Rajendra Cruz MD Service: Nephrology Author Type: Physician Type: Consult Progress Note Filed: 01/20/2021 1:44 PM Note Text: [facility] NEPHROLOGY CONSULT PROGRESS NOTE SERVICE [...] DATE: January 20, 2021 1:43 PM PHONE: [phone] FOR AFTER HOUR CONCERNS BETWEEN 7PM - 7AM CONTACT ON-CALL NEPHROLOGY STAFF Normal [facility] THERAPY NT 01-20-2021 THERAPY NT HNO ID: [id number] Author: Afia Radford, PT Service: Physical Therapy Author Type: Physical Therapist Type: Therapy (PT/OT/Speech/Resp) Filed: 01/20/2021 3:32 PM Note Text: Physical Therapy Treatment SERVICE DATE: 01/20/2021 SERVICE TIME: 1330 to 1353 ROOM: [place] [address] Recommended Discharge Disposition: Home PT Recommended Discharge [...] 0 Tub/Shower Type: tub shower Laundry: basement, [id number]-qdc Equipment Owned: Cane;Standard Walker Prior Functional Level: [...] Diagnosis: Reduced mobility-other Interventions Provided: Gait Training (58967);Therapeutic Exercise (65751) Therapeutic Exercise (27490) Treatment Minutes: 8 Pt performed in supine position: AP, QS, GS x 10 B LE, pt instructed to do every hour while awake on their own. 7 days a week, HS, hip ABD, SAQ, SLR 10-20 reps/ 2-3x/day/ 7 days/week Gait Training (03249) Treatment Minutes: 15 $ Gait Training (62103) Billed Units: 1 unit Training AND education [...] 20, 2021 TIME: (more content not included)... [facility] THERAPY NT HNO ID: [id number] Author: Heidy Wright OT/L Service: Occupational Therapy Author Type: Occupational Therapist Type: Therapy (PT/OT/Speech/Resp) Filed: 01/20/2021 12:15 PM Note Text: Occupational Therapy Treatment SERVICE DATE: 01/20/2021 SERVICE TIME: 1155 to 1205 ROOM: [place] [address] Recommended Discharge Disposition: Home OT Recommended Discharge [...] 0 Tub/Shower Type: tub shower Laundry: basement, boyfltzn-is-qgo Equipment Owned: Cane;Standard Walker Prior Functional Level: [...] (generalized);General symptoms and signs-other Interventions Provided: Self Custodial Management (97391) Self Custodial Management (75435) Treatment Minutes: 10 $ Self Custodial Management (29126) Billed Units: 1 unit Training AND education provided in: Benefits of in (more content not included)... [facility] THERAPY NT HNO ID: [id number] Author: Heidy Wright OT/L Service: Occupational Therapy Author Type: Occupational Therapist Type: Therapy (PT/OT/Speech/Resp) Filed: 01/20/2021 8:24 AM Note Text: OCCUPATIONAL THERAPY MISSED VISIT SERVICE DATE: 01/20/2021 SERVICE TIME: 0820 to 0820 ROOM: [place] [address] Attempted Treatment. Patient not seen due to Declined. Pt states, It's too early when OT attempted to work with her. Will re-attempt as schedule permits. SIGNATURE: Heidy Wright OT/L PATIENT NAME: Aislinn Wheeler DATE: January 20, 2021 TIME: 8:24 AM Normal [facility] Basic Metabolic Panlon 01-19 Anion gap [Moles/Vol] 11 mmol/L Normal 9-18 [facility] Calcium [Mass/Vol] 8.5 mg/dL Normal 8.5-10.2 [facility] Chloride [Moles/Vol] 93 mmol/L Low 97-105 [facility] CO2 [Moles/Vol] 24 mmol/L Normal 22-30 [facility] ital Creatinine [Mass/Vol] 1.92 mg/dL High 0.58-0.96 [facility] eGFR- Amer. 32 Normal [facility] ospital eGFR-All Other Races 26 . Normal [facility] Comment on above: Result Comment: eGFR (Estimated [...] GFR. Glucose [Mass/Vol] 268 mg/dL High 74-99 [facility] Comment on above: Result Comment: The [place] Diabetes Association (ADA) provides guidance for cutoff [...] Standards of Medical Care in Diabetes 2016, [place] Diabetes [employer]. Diabetes Care. 2016.39(Suppl 1). Potassium [Moles/Vol] 4.2 mmol/L Normal 3.7-5.1 [facility] Sodium [Moles/Vol] 128 mmol/L Low 136-144 [facility] Urea nitrogen [Mass/Vol] 77 mg/dL High 7-21 [facility] Anion gap [Moles/Vol] 11 mmol/L Normal 9-18 [facility] Calcium [Mass/Vol] 8.3 mg/dL Low 8.5-10.2 [facility] Chloride [Moles/Vol] 88 mmol/L Low 97-105 [facility] CO2 [Moles/Vol] 23 mmol/L Normal 22-30 [facility] ital Creatinine [Mass/Vol] 1.93 mg/dL High 0.58-0.96 [facility] eGFR- Amer. 32 Normal [facility] eGFR-All Other Races 26 . Normal [facility] Comment on above: Result Comment: eGFR (Estimated [...] GFR. Glucose [Mass/Vol] 292 mg/dL High 74-99 [facility] Comment on above: Result Comment: The [place] Diabetes Association (ADA) provides guidance for cutoff [...] Standards of Medical Care in Diabetes 2016, [place] Diabetes [employer]. Diabetes Care. 2016.39(Suppl 1). Potassium [Moles/Vol] 3.8 mmol/L Normal 3.7-5.1 [facility] Sodium [Moles/Vol] 122 mmol/L Low 136-144 [facility] ospital Urea nitrogen [Mass/Vol] 82 mg/dL High 7-21 [facility] CBCon 01-19-2021 Absolute nRBC <0.01 Normal <0.01 [facility] Erythrocyte distribution width (RBC) [Ratio] 12.8 % Normal 11.5-15.0 [facility] Hematocrit (Bld) [Volume fraction] 27.5 % Low 36.0-46.0 [facility] Hemoglobin (Bld) [Mass/Vol] 9.1 g/dL Low 11.5-15.5 [facility] MCH 24.9 pG Low 26.0-34.0 [facility] MCHC (RBC) [Mass/Vol] 33.1 g/dL Normal 30.5-36.0 [facility] MCV (RBC) [Entitic vol] 75.1 fL Low 80.0-100.0 [facility] Platelet mean volume (Bld) [Entitic vol] 11.2 fL Normal 9.0-12.7 [facility] Platelets (Bld) [#/Vol] 297 10*3/uL Normal 150-400 [facility] RBC (Bld) [#/Vol] 3.66 10*6/uL Low 3.90-5.20 [facility] WBC (Bld) [#/Vol] 12.14 10*3/uL High 3.70-11.00 [facility] CONSULT PROGon 01-19-2021 CONSULT PROG HNO ID: [id number] Author: Rajendra Cruz MD Service: Nephrology Author Type: Physician Type: Consult Progress Note Filed: 01/19/2021 2:40 PM Note Text: [facility] NEPHROLOGY CONSULT PROGRESS NOTE SERVICE [...] the past by an outside urologist, Dr. Lamin with routine scans, but she is unsure of exact diagnosis or management thoughts. Needs re-evaluation. Plan: -OK with MR kidney to evaluate mass. -Continue valerio catheter with outpatient management per urology -Hold further IV fluids at this point -Drink to thirst, no need to push fluids Will follow SIGNATURE: Rajendra Chavarria MD PATIENT NAME: Aislinn Wheeler DATE: January 19, 2021 2:27 PM PHONE: [phone] FOR AFTER HOUR CONCERNS BETWEEN 7PM - 7AM CONTACT ON-CALL NEPHROLOGY STAFF [facility] NUTRITIONon 01-19-2021 NUTRITION HNO ID: [id number] Author: Michelle Louis RD Service: Nutrition Therapy [...] history;Intake records;Patient/family self-report;Weight loss;Nausea;Vomiting Estimated kilocalorie needs: 1111-5278 Calorie Calculation Method: 30-35 kcals/kg Estimated protein [...] Question: Carbohydrate Control Answer: 3-5 CARBS/MEAL 01/18/21 9835 Anthropometrics: Height: 152.4 cm (5') Weight: 44.1 [...] January 19, 2021 TIME: 10:59 AM PAGER: [phone] I have reviewed the nutritional assessment note documented by the pharmacy grad intern and I personally participated in the miller components. I have discussed the case and nutritional management of the patient's care. Michelle Louis MS,RD,LD,[facility] THERAPY NTon 01-19-2021 THERAPY NT HNO ID: [id number] Author: Afia Radfodr, PT Service: Physical Therapy Author Type: Physical Therapist Type: Therapy (PT/OT/Speech/Resp) Filed: 01/19/2021 2:57 PM Note Text: Physical Therapy Evaluation SERVICE DATE: 01/19/2021 SERVICE TIME: 1307 to 1331 ROOM: [place] [address] Recommended Discharge Disposition: Home PT Anticipated Discharge [...] 0 Tub/Shower Type: tub shower Laundry: basement, yvsbvnde-ob-aeo Equipment Owned: Cane;Standard Walker Prior Functional Level: [...] Diagnosis: Reduced mobility-other Interventions Provided: Evaluation;Therapeutic Exercise (51933);Gait Training (69853) $ Evaluation-Low (55849) Billed Units: 1 unit Therapeutic Exercise (98337) Treatment Minutes: 1 Patient performed in seated position: Marching, AP/HR, hip ABD, LAQ x10 B LE- instructions written on white board for pt to complete on her own. Gait Training (79496) Treatment Minutes: 8 $ Gait Training (43004) Billed Units: 1 unit Training AND education [...] present during visit: Aleksander Syed, SPT Normal [facility] Basic Metabolic Panlon 01-18 Anion gap [Moles/Vol] 13 mmol/L Normal 9-18 [facility] Calcium [Mass/Vol] 8.8 mg/dL Normal 8.5-10.2 [facility] Chloride [Moles/Vol] 88 mmol/L Low 97-105 [facility] CO2 [Moles/Vol] 22 mmol/L Normal 22-30 [facility] ital Creatinine [Mass/Vol] 2.21 mg/dL High 0.58-0.96 [facility] eGFR- Amer. 27 Normal [facility] ospital eGFR-All Other Races 23 . Normal [facility] Comment on above: Result Comment: eGFR (Estimated [...] GFR. Glucose [Mass/Vol] 253 mg/dL High 74-99 [facility] Comment on above: Result Comment: The [place] Diabetes Association (ADA) provides guidance for cutoff [...] Standards of Medical Care in Diabetes 2016, [place] [employer]. Diabetes Care. 2016.39(Suppl 1). Potassium [Moles/Vol] 3.7 mmol/L Normal 3.7-5.1 [facility] Sodium [Moles/Vol] 123 mmol/L Low 136-144 [facility] Urea nitrogen [Mass/Vol] 93 mg/dL High 7-21 [facility] Anion gap [Moles/Vol] 16 mmol/L Normal 9-18 [facility] Calcium [Mass/Vol] 9.0 mg/dL Normal 8.5-10.2 [facility] Chloride [Moles/Vol] 93 mmol/L Low 97-105 [facility] CO2 [Moles/Vol] 21 mmol/L Low 22-30 [facility] Creatinine [Mass/Vol] 2.59 mg/dL High 0.58-0.96 [facility] eGFR- Amer. 23 Normal [facility] ospital eGFR-All Other Races 19 . Normal [facility] Comment on above: Result Comment: eGFR (Estimated [...] GFR. Glucose [Mass/Vol] 130 mg/dL High 74-99 [facility] Comment on above: Result Comment: The [place] Diabetes Association (ADA) provides guidance for cutoff [...] Standards of Medical Care in Diabetes 2016, [place] [employer]. Diabetes Care. 2016.39(Suppl 1). Potassium [Moles/Vol] 4.7 mmol/L Normal 3.7-5.1 [facility] Sodium [Moles/Vol] 130 mmol/L Low 136-144 [facility] o[facility]ital Urea nitrogen [Mass/Vol] 97 mg/dL High 7-21 [facility]: [id number] Author: Nicol Landin RN Service: ? 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 Goals: To have reduction in pain;To [...] scheduled Advance Directive: Current Advance Directive: None Doughmaker Attempted to Assist with AD Completion: Yes [...] Walker Has the Patient Been in a [facility] Facility in the Past 30 days?: No [...] and plan for meeting these needs: Patient's itzagcqg-pm-hhb and son live close by and come over to help often Patient's perception of need for this admission: necessary Medication Adherance I am convinced of the importance of my prescription medication: 0 - Agree Completely I worry that my prescription medication will do more harm than good to me : 0 - Disagree Completely I feel financially burdened by my zpg-ms-fixazl expenses for my prescription medication:: 0 - Disagree Completely Risk Score: 0 Patient is categorized as: Low risk < 2 Are you interested in bedside delivery of your medications? Yes Is Patient Psychosocially Complex?: Yes, refer to Social Work ASSESSMENT AND PLAN: Medical Needs: Medical Needs: Two or more chronic diseases Psychosocial Needs: Psychosocial Needs: None FREEDOM OF CHOICE EXPLAINED: [place] of Choice Given: No Reason Not Given: [...] and hospitalized about 1 month ago in [place] but no resolution of her symptoms. She [...] 18, 2021 TIME: 10:51 AM PAGER/CONTACT #: [phone] Normal [facility] CBCon 01-18-2021 Absolute nRBC <0.01 Normal <0.01 [facility] Erythrocyte distribution width (RBC) [Ratio] 13.0 % Normal 11.5-15.0 [facility] Hematocrit (Bld) [Volume fraction] 31.2 % Low 36.0-46.0 [facility] Hemoglobin (Bld) [Mass/Vol] 9.9 g/dL Low 11.5-15.5 [facility] MCH 24.4 pG Low 26.0-34.0 [facility] MCHC (RBC) [Mass/Vol] 31.7 g/dL Normal 30.5-36.0 [facility] MCV (RBC) [Entitic vol] 77.0 fL Low 80.0-100.0 [facility] Platelet mean volume (Bld) [Entitic vol] 10.8 fL Normal 9.0-12.7 [facility] Platelets (Bld) [#/Vol] 310 10*3/uL Normal 150-400 [facility] RBC (Bld) [#/Vol] 4.05 10*6/uL Normal 3.90-5.20 [facility] WBC (Bld) [#/Vol] 17.03 10*3/uL High 3.70-11.00 [facility] CONSULTon 01-18-2021 CONSULT HNO ID: [id number] Author: Annie Trinidad DO Service: Hypertension AND [...] Noted a no-show appointment to urology at [facility]. She also reports that she has [...] positive for n (more content not included)... [facility] CONSULT HNO ID: [id number] Author: Taurus Ballard MD Service: Urology Author Type: Physician Type: Consults Filed: 01/18/2021 8:27 AM Note Text: [facility] UROLOGY CONSULT NOTE [...] the pa (more content not included)... Normal [facility] Creatinine,Urine,Ranon 01-18 Creatinine,Urine,Ran 33.5 mg/dL Normal 20-300 [facility] Comment on above: Performed By: #### U OSIEL, UOSM, UCRR ####[facility] [place] [place], [place] [phone] Magnesiumon 01-18-2021 Magnesium [Mass/Vol] 1.9 mg/dL Normal 1.7-2.3 [facility] NURSING PROGon 01-18-2021 NURSING PROG HNO ID: [id number] Author: Barbara Spicer RN Service: ? Author Type: Registered Nurse Type: Nursing Progress Note Filed: 01/18/2021 10:28 AM Note Text: Nursing Progress Note Patient Name: Aislinn Wheeler Patient Location: [facility]/ Daily Note:pt report given to pete LE. Pt VSS. Pt belongings packed. This note was completed by: Barbara Spicer Normal [facility] Osmolalityon 01-18-2021 Osmolality [Osmolality] 298 mosm/kg Normal 275-300 [facility] Comment on above: Performed By: #### O SM ####[place] [id number] [place], [place] [phone] Osmolality, Urineon 01-19-20 21 Osmolality, Urine 273 mOsm/kg Normal 50-1200 [facility]spital Comment on above: Performed By: #### U OSIEL, UOSM, UCRR ####[facility] [address] [place], [place] [phone] Sepsis Lactateon 01-18-2021 Sepsis Lactate 0.9 mmol/L Normal <2.1 [facility] Sodium,Urine,Randomon 2020 Sodium (U) [Moles/Vol] 32 mmol/L Normal 14-216 [facility] Comment on above: Performed By: #### U FRANK ARGUELLO, UCRR ####[facility] [address] [place], [place] [phone] THERAPY NTon 01-18-2021 THERAPY NT HNO ID: [id number] Author: Wendy Montes De Oca OT/L Service: Occupational Therapy Author Type: Occupational Therapist Type: Therapy (PT/OT/Speech/Resp) Filed: 01/18/2021 1:10 PM Note Text: Occupational Therapy Evaluation SERVICE DATE: 01/18/2021 SERVICE TIME: 853 to 914 ROOM: [place] [address] Recommended Discharge Disposition: Home OT Recommended Discharge [...] 0 Tub/Shower Type: tub shower Laundry: basement, dbkhybas-lh-buo Equipment Owned: Cane;Standard Walker CURRENT FUNCTIONAL STATUS: [...] and signs-other Interventions Provided: Evaluation $ Evaluation-Moderate (06455) Billed Units: 1 unit Training and education [...] DATE: January 18, 2021 TIME: 1:06 PM [facility] Urine Cultureon 01-18-2021 Bacteria identified Cx Nom (U) Sp. Request/Comment: - Specimen received in preservative Culture Result - No growth (<1,000 CFU/ml) [facility] Comment on above: Performed By: #### U RCUL ####[address] [phone] Blood Cultureon 01-17-2021 Bacteria identified Cx Nom (Bld) Culture Result - No growth 5 days Normal [facility] Comment on above: Performed By: #### B LCUL ####[address] [phone] C-Reactive Proteinon 021 C-Reactive Protein 32.4 mg/dL High <0.9 [facility] [facility] Comment on above: Performed By: #### W SR ####[address] [phone] CBC and Differentialon 01-17 Abs Baso <0.03 Normal <0.11 [facility] Abs Eosin <0.03 Normal <0.46 [facility] Abs Irion 0.73 k/uL Normal <0.87 [facility] Abs Neut 14.70 k/uL High 1.45-7.50 [facility] Absolute nRBC <0.01 Normal <0.01 [facility]100 WBC (Bld) 0.1 % Normal [facility] DTYPE Auto Diff Normal [facility] Eosinophils/100 WBC (Bld) 0.0 % Normal [facility] Erythrocyte distribution width (RBC) [Ratio] 13.1 % Normal 11.5-15.0 [facility] Hematocrit (Bld) [Volume fraction] 35.1 % Low 36.0-46.0 [facility] Hemoglobin (Bld) [Mass/Vol] 11.3 g/dL Low 11.5-15.5 [facility] Lymphocytes (Bld) [#/Vol] 1.88 10*3/uL Normal 1.00-4.00 [facility] Lymphocytes/100 WBC (Bld) 10.8 % Normal [facility] MCH 24.2 pG Low 26.0-34.0 [facility] MCHC (RBC) [Mass/Vol] 32.2 g/dL Normal 30.5-36.0 [facility] MCV (RBC) [Entitic vol] 75.2 fL Low 80.0-100.0 [facility] Monocytes/100 WBC (Bld) 4.2 % Normal [facility] Neutrophils/100 WBC (Bld) 84.9 % Normal [facility] NRBCs 0.0 /100 WBC Normal 0 [facility] l Platelet mean volume (Bld) [Entitic vol] 11.4 fL Normal 9.0-12.7 [facility] l Platelets (Bld) [#/Vol] 345 10*3/uL Normal 150-400 [facility] RBC (Bld) [#/Vol] 4.67 10*6/uL Normal 3.90-5.20 [facility] WBC (Bld) [#/Vol] 17.33 10*3/uL High 3.70-11.[address] [facility] [address] ABD/PEL WO IVCONon 2020 CT ABD/PEL WO IVCON * * *Final Report* * * DATE OF EXAM: Jan 17 2021 8:05PM [facility] 0531 - CT ABD/PEL WO IVCON / PROCEDURE REASON: Mass or lump, abdomen pelvis * * * * Physician Interpretation * * * * CT OF CHEST, ABDOMEN AND PELVIS WITHOUT CONTRAST CLINICAL HISTORY: Aspiration (accession [id number]), Mass or lump, abdomen pelvis (accession [id number]) Concern for possible source of infection vs [...] report for details. Pelvic bones are intact. Machine Operator Hay Stacker (topogram) images: Unremarkable. IMPRESSION: Left upper lobe [...] be communicated with the ordering provider via [employer] staff message or phone message by [employer] within 2 business days of report finalization. ACTIONABLE RESULT: FOLLOW-UP Acuity: Actionable Findings: Kidneys/Ureters/Bladder/A drenal Routing Code: GU_1 Recommendation: MRI KIDNEY WO/W IVCON Time Frame: non-urgent, but prompt follow-up. COMMUNICATION: Results will be communicated with the ordering provider via [employer] staff message or phone message by [employer] within 2 business days of report finalization. Algorithms for management of incidental imaging findings can be found on the [facility] Intranet Sharepoint site at: [email or web address] ging%20Incidental%20Findi ngs%20at%20Imaging/Forms/ AllItems.aspx [employer]: [employer] Transcribe Date/Time: Jan 17 2021 8:20P Dictated by : GALO JIM MD This examination was interpreted and the report reviewed and electronically signed by: GALO JIM MD on Jan 17 2021 8:43PM EST [id number] ACTIONABLE Invalid Interpretation Code [facility] CT BRAIN WO IVCONon 01-18-20 CT BRAIN WO IVCON * * *Final Report* * * DATE OF EXAM: Jan 17 2021 4:26PM [facility] 0504 - CT BRAIN WO [...] base and imaged soft tissues are unremarkable. Machine Operator Hay Stacker (topogram) images: No additional findings. IMPRESSION: No acute intracranial hemorrhage or mass effect is seen [employer] De[employer]: [facility]ITAL[facility]ber[facility] Transcribe Date/Time: Jan 17 2021 4:47P Dictated by : JOHN THAKKAR MD This examination was interpreted and the report reviewed and electronically signed by: JOHN THAKKAR MD on Jan 17 2021 4:48PM EST [id number] Normal [facility] CT CERVICAL SPINE WO IVCONon 01-17-2021 CT CERVICAL SPINE WO IVCON * * *Final Report* * * DATE OF EXAM: Jan 17 2021 4:26PM [facility] 0505 - CT CERVICAL SPINE [...] Counting reference: Craniocervical junction. Anatomic Variants: None. Machine Operator Hay Stacker (topogram) images: No additional findings. Alignment: Straightening [...] vertebrae with counting from the craniocervical junction. [employer]: [employer] Transcribe Date/Time: Jan 17 2021 4:49P Dictated by : JOHN THAKKAR MD This examination was interpreted and the report reviewed and electronically signed by: JOHN THAKKAR MD on Jan 17 2021 4:53PM EST [id number] Normal [facility] CT CHEST WO IVCONon 01-18-20 CT CHEST WO IVCON * * *Final Report* * * DATE OF EXAM: Jan 17 2021 8:05PM [facility] 0541 - CT CHEST WO IVCON / PROCEDURE REASON: Aspiration * * * * Physician Interpretation * * * * CT OF CHEST, ABDOMEN AND PELVIS WITHOUT CONTRAST CLINICAL HISTORY: Aspiration (accession [id number]), Mass or lump, abdomen pelvis (accession [id number]) Concern for possible source of infection vs [...] report for details. Pelvic bones are intact. Machine Operator Hay Stacker (topogram) images: Unremarkable. IMPRESSION: Left upper lobe [...] be communicated with the ordering provider via [employer] staff message or phone message by [employer] within 2 business days of report finalization. ACTIONABLE RESULT: FOLLOW-UP Acuity: Actionable Findings: Kidneys/Ureters/Bladder/A drenal Routing Code: GU_1 Recommendation: MRI KIDNEY WO/W IVCON Time Frame: non-urgent, but prompt follow-up. COMMUNICATION: Results will be communicated with the ordering provider via [employer] staff message or phone message by [employer] within 2 business days of report finalization. Algorithms for management of incidental imaging findings can be found on the [facility] Intranet Sharepoint site at: [email or web address] ging%20Incidental%20Findi ngs%20at%20Imaging/Forms/ AllItems.aspx [employer]: [employer] Transcribe Date/Time: Jan 17 2021 8:20P Dictated by : GALO JIM MD This examination was interpreted and the report reviewed and electronically signed by: GALO JIM MD on Jan 17 2021 8:43PM EST [id number] ACTIONABLE Invalid Interpretation Code [facility] CT LUMBAR SPINE WO IVCONon 0 01-17-2021 CT LUMBAR SPINE WO IVCON * * *Final Report* * * * * * SEE BOTTOM OF REPORT FOR ADDENDED TEXT * * * DATE OF EXAM: Jan 17 2021 5:34PM [facility] 0508 - CT LUMBAR SPINE [...] are 5 lumbar-type vertebrae. Anatomic variant: None. Machine Operator Hay Stacker (topogram) images: No additional findings. Alignment: Alignment [...] on 01/17/2021 6:08 PM via verbal communication. [employer]: [employer] Transcribe Date/Time: Jan 17 2021 6:05P Dictated by : JOHN THAKKAR MD This examination was interpreted and the report reviewed and electronically signed by: JOHN THAKKAR MD on Jan 17 2021 6:01PM EST This document has been addended by: JOHN THAKKAR MD on Jan 17 2021 6:08PM EST [id number] [facility] CT THORACIC SPINE WO IVCONon 01-17-2021 CT THORACIC SPINE WO IVCON * * *Final Report* * * DATE OF EXAM: Jan 17 2021 5:34PM [facility] 0514 - CT THORACIC SPINE [...] the purposes of this report, anatomic variants: Machine Operator Hay Stacker (topogram) images: No additional findings. Alignment: Alignment [...] and assume there are 5 lumbar-type vertebrae. [employer]: [employer] Transcribe Date/Time: Jan 17 2021 6:03P Dictated by : JOHN THAKKAR MD This examination was interpreted and the report reviewed and electronically signed by: JOHN THAKKAR MD on Jan 17 2021 6:13PM EST [id number] Normal [facility] Comp Metabolic Panelon 01-17 Albumin [Mass/Vol] 3.0 g/dL Low 3.9-4.9 [facility]ital ALP [Catalytic activity/Vol] 162 U/L High 34-123 [facility] ALT [Catalytic activity/Vol] 7 U/L Normal 7-38 [facility] Anion gap [Moles/Vol] 17 mmol/L Normal 9-18 [facility] AST [Catalytic activity/Vol] 15 U/L Normal 13-35 [facility] Bilirubin [Mass/Vol] 0.4 mg/dL Normal 0.2-1.3 [facility] Calcium [Mass/Vol] 9.6 mg/dL Normal 8.5-10.2 [facility] Chloride [Moles/Vol] 83 mmol/L Low 97-105 [facility] CO2 [Moles/Vol] 20 mmol/L Low 22-30 [facility] ital Creatinine [Mass/Vol] 2.93 mg/dL High 0.58-0.96 [facility] eGFR- Amer. 20 Normal [facility]ital eGFR-All Other Races 16 . Normal [facility] Comment on above: Result Comment: eGFR (Estimated [...] ospital Comment on above: Result Comment: The [place] Diabetes Association (ADA) provides guidance for cutoff [...] Standards of Medical Care in Diabetes 2016, [place] [employer]. Diabetes Care. 2016.39(Suppl 1). Potassium [Moles/Vol] 5.5 mmol/L High 3.7-5.1 [facility] Protein [Mass/Vol] 9.5 g/dL High 6.3-8.0 [facility] Sodium [Moles/Vol] 120 mmol/L Low 136-144 [facility] Comment on above: Result Comment: Resu lt checked and verified Urea nitrogen [Mass/Vol] 104 mg/dL High 7-21 [facility] ED NOTEon 01-17-2021 ED NOTE HNO ID: [id number] Author: Prerna Luke RN Service: ? Author Type: Registered Nurse Type: ED Notes Filed: 01/17/2021 9:32 PM Note Text: Report called to 4E RN. Patient stable for transport at this time. [facility] ED NOTE HNO ID: [id number] Author: Prerna Luke RN Service: ? Author Type: Registered Nurse Type: ED Notes Filed: 01/17/2021 9:20 PM Note Text: 16Fr valerio inserted with 500 cc urine immediately drained. Patient tolerated well. [facility] ED NOTE HNO ID: [id number] Author: Prerna Luke RN Service: ? Author Type: Registered Nurse Type: ED Notes Filed: 01/17/2021 7:22 PM Note Text: BC obtained by lab. ABX infusing at this time. [facility] ED NOTE HNO ID: [id number] Author: Prerna Luke RN Service: ? Author Type: Registered Nurse Type: ED Notes Filed: 01/17/2021 7:06 PM Note Text: This RN and 2 medics unable to straight stick patient for blood or draw from existing IVs. Lab will draw one set of BC; GIANNI Tucker notified that only one set will be obtained. [facility] ED NOTE HNO ID: [id number] Author: Prerna Luke RN Service: ? Author Type: Registered Nurse Type: ED Notes Filed: 01/17/2021 4:25 PM Note Text: XR at bedside [facility] ED NOTE HNO ID: [id number] Author: Prerna Luke RN Service: ? Author Type: Registered Nurse Type: ED Notes Filed: 01/17/2021 4:03 PM Note Text: covid swab obtained and walked to lab. [facility] ED NOTE HNO ID: [id number] Author: Bharat Patterson RN Service: ? Author [...] time Reports oral intake has been poor [facility] ED PROV NOTEon 01-17-2021 ED PROV NOTE HNO ID: [id number] Author: Garrett Simon PA-C Service: Emergency Medicine Author Type: Physician [employer] Laborer Type: ED Provider Notes Filed: 01/17/2021 9:27 PM Note Text: ----- Attestation signed by Cory Crawley III, MD at 01/18/2021 12:06 PM Attending Note I have personally performed a face to face assessment of the patient and have reviewed the PA/PROTOTYPE ENGINEER MANAGER note. My miller findings include: This [...] significant midlin (more content not included)... Normal [facility] HISTORY PHYSICALon HISTORY PHYSICAL HNO ID: [id number] Author: Trevor Porras MD Service: Hospital Medicine Author Type: Physician Type: HANDP Filed: 01/17/2021 10:12 PM Note Text: DEPARTMENT OF HOSPITAL MEDICINE HISTORY AND PHYSICAL EXAM SERVICE DATE: 01/17/2021 Code Status: Not on file SERVICE TIME: 10:00 PM Primary Care Physician: No Pcp NIGHT AND WEEKEND COVERAGE: [place] COVERAGE: Days: [phone], please contact via [employer] Nights: [phone], please page [facility] Hospitalist Night coverage pager [phone] Subjective CHIEF COMPLAINT: Generalized weakness, falls HPI: [...] Most recen (more content not included)... Normal [facility] Intermed Rapid COVIDon 01-17 SARS-CoV-2 (COVID-19) RNA ADRIEL+probe Ql (Unsp spec) UPPER RESPIRATORY TRACT SWAB Normal [facility] Comment on above: Performed By: #### I TCOVD ####[facility] [address] [place], [place] [phone] SARS-CoV-2 (COVID-19) RNA ADRIEL+probe Ql (Unsp spec) Negative for COVID19 (SARS CoV2) by RT-PCR or equivalent method. Normal Negative for COVID19 (SARS CoV2) by RT-PCR or equivalent method. [facility] Comment on above: Result Comment: This test was developed and its performance characteristics determined by [facility]'s [facility] [place]. This test has been authorized by FDA under an Emergency Use Authorization (EUA). This test has been validated in accordance with the FDA's Guidance Document Policy for Diagnostics Testing in Laboratories Certified to Perform High Complexity Testing under CLIA prior to Emergency use Authorization for Coronavirus Disease 2019 during the Public Health Emergency issued on October 19, 2019. Test performed by [facility], Taurus Eason [facility] [place], [address], [place] [address]. Performed By: #### I TCOVD ####[facility] [place] [place], [place] [phone] Magnesiumon 01-17-2021 Magnesium [Mass/Vol] 2.0 mg/dL Normal 1.7-2.3 [facility] NT Pro BNPon 01-17-2021 PRO B Natr Peptide 394 pg/mL High <125 [facility] Sed Rate Westergrenon 2020 Sed Rate Westergren 124 mm/hr High 0-20 [facility] Comment on above: Performed By: #### W SR ####[facility] [place] [place], [place] [phone] TSHon 01-17-2021 TSH Qn 0.615 m[IU]/L Normal 0.270-4.200 [facility] Troponin Ton 01-17-2021 Troponin T.cardiac [Mass/Vol] 0.023 ug/L Normal 0.000-0.029 [facility] Urinalysis with Microscopico n 01-17-2021 Bacteria Present Critically abnormal 0 [facility] Bilirubin, Urine Negative Normal Negative [facility] pital Cast SEE COMMENT Normal 0 [facility] Comment on above: Result Comment: 0 Clarity (U) Turbid Critically abnormal Clear [facility] Color (U) Yellow Normal Yellow [facility] Glucose Ql (U) Negative Normal Negative [facility] Hem[facility]/Blood,Ur 2+ Critically abnormal Negative [facility] Ketones Ql (U) Negative Normal Negative [facility] Leukest 3+ Critically abnormal Negative [facility] Nitrite Ql (U) Positive Critically abnormal Negative [facility] pH (U) 8.5 [pH] High 5.0-8.0 [facility] Protein, Urine 2+ Critically abnormal Negative [facility] RBC 3-5 Critically abnormal 0-3 [facility] [place], Ur 1.013 Normal 1.005-1.030 [facility] Urobilinogen Qn (U) 0.2 {Madeleine'U}/dL Normal 0.2-1.0 [facility] WBC (U) [#/Vol] /uL Critically abnormal 0-5 [facility] Urine Cultureon 01-17-2021 Bacteria identified Cx Nom [...] F Ertapenem SUSCEPTIBLE <=0.5 F Critically abnormal [facility] Comment on above: Performed By: #### U RCUL ####[facility] [address] [place], [place] [phone] XR CHEST 1V FRONTAL PORTon 0 01-17-2021 [...] exam with no evidence of acute disease. [employer]: [employer] Transcribe Date/Time: Jan 17 2021 4:40P Dictated by : FLASH WOODS MD This examination was interpreted and the report reviewed and electronically signed by: FLASH WOODS MD on Jan 17 2021 4:41PM EST [id number] [facility] Vital Signs Date Time Vital Sign Value Performing Clinician Facility 03-17-2025 14:05-0400 Body height 152.4 cm PHYSICIAN NO [facility] 03-17-2025 14:05-0400 Body mass index (BMI) [Ratio] 25.2 kg/m2 PHYSICIAN NO [facility] 03-17-2025 14:05-0400 Body weight 58.68 kg PHYSICIAN NO [facility] 03-17-2025 14:05-0400 Diastolic blood pressure 75 mm[Hg] PHYSICIAN NO [facility] 03-17-2025 14:05-0400 Heart rate 72 /min PHYSICIAN NO [facility] 03-17-2025 14:05-0400 Respiratory rate 16 /min PHYSICIAN NO [facility] 03-17-2025 14:05-0400 SaO2% (BldA) [Mass fraction] 97 % PHYSICIAN NO [facility] 03-17-2025 14:05-0400 Systolic blood pressure 145 mm[Hg] PHYSICIAN NO [facility] 03-12-2025 13:05-0400 Body height 152.4 cm Sweta Promuchoff PA-C [facility] 03-12-2025 13:05-0400 Body mass index (BMI) [Ratio] 25 kg/m2 Sweta Verhoff PA-C Work Phone: [facility] 03-12-2025 13:05-0400 Body weight 58.06 kg Sweta Verhoff PA-C Work Phone: [facility] 03-12-2025 13:05-0400 Diastolic blood pressure 92 mm[Hg] Sweta Verhoff PA-C Work Phone: [facility] 03-12-2025 13:05-0400 Heart rate 71 /min Sweta Verhoff PA-C Work Phone: [facility] 03-12-2025 13:05-0400 SaO2% (BldA) [Mass fraction] 96 % Sweta Verhoff PA-C Work Phone: [facility] 03-12-2025 13:05-0400 Systolic blood pressure 173 mm[Hg] Sweta Verhoff PA-C Work Phone: [facility] 01-27-2025 15:09-0400 Body mass index (BMI) [Ratio] 25.15 kg/m2 Agusto Aichholz PHOSPHORIC ACID OPERATOR Work Phone: [facility] 01-27-2025 15:09-0400 Body temperature 97.81 [degF] Agusto Aichholz PHOSPHORIC ACID OPERATOR Work Phone: [facility] 01-27-2025 15:09-0400 Body weight 58.42 kg Agusto Aichholz PHOSPHORIC ACID OPERATOR Work Phone: [facility] 01-27-2025 15:09-0400 Diastolic blood pressure 80 mm[Hg] Agusto Aichholz PHOSPHORIC ACID OPERATOR Work Phone: [facility] 01-27-2025 15:09-0400 Heart rate 69 /min Agusto Aichholz PHOSPHORIC ACID OPERATOR Work Phone: [facility] 01-27-2025 15:09-0400 Respiratory rate 18 /min Agusto Aichholz PHOSPHORIC ACID OPERATOR Work Phone: [facility] 01-27-2025 15:09-0400 SaO2% (BldA) [Mass fraction] 96 % Agusto Aichholz PHOSPHORIC ACID OPERATOR Work Phone: [facility] 01-27-2025 15:09-0400 Systolic blood pressure 146 mm[Hg] Agusto Aichholz PHOSPHORIC ACID OPERATOR Work Phone: [facility] 01-08-2025 12:01-0400 Body height 152.4 cm Sweta Verhoff PA-C Work Phone: [facility] 01-08-2025 12:01-0400 Body mass index (BMI) [Ratio] 25.58 kg/m2 Sweta Verhoff PA-C Work Phone: [facility] 01-08-2025 12:01-0400 Body weight 59.42 kg Sweta Verhoff PA-C Work Phone: [facility] 01-08-2025 12:01-0400 Diastolic blood pressure 71 mm[Hg] Sweta Verhoff PA-C Work Phone: [facility] 01-08-2025 12:01-0400 Heart rate 70 /min Sweta Verhoff PA-C Work Phone: [facility] 01-08-2025 12:01-0400 Respiratory rate 18 /min Sweta Verhoff PA-C Work Phone: [facility] 01-08-2025 12:01-0400 SaO2% (BldA) [Mass fraction] 100 % Sweta Verhoff PA-C Work Phone: [facility] 01-08-2025 12:01-0400 Systolic blood pressure 137 mm[Hg] Sweta Verhoff PA-C Work Phone: [facility] 12-05-2024 13:31-0400 Body height 152.4 cm Cory Angeles DPM Work Phone: [facility] 12-05-2024 13:31-0400 Body mass index (BMI) [Ratio] 25.39 kg/m2 Cory Angeles DPM Work Phone: [facility] 12-05-2024 13:31-0400 Body weight 58.97 kg Cory Angeles DPM Work Phone: [facility] 12-05-2024 13:31-0400 Respiratory rate 18 /min Cory Angeles DPM Work Phone: [facility] 12-04-2024 10:57-0400 Body height 152.4 cm Agusto Jodiholz PHOSPHORIC ACID OPERATOR Work Phone: [facility] 12-04-2024 10:57-0400 Body mass index (BMI) [Ratio] 26.17 kg/m2 Agusto Aichholz PHOSPHORIC ACID OPERATOR Work Phone: [facility] 12-04-2024 10:57-0400 Body temperature 97.5 [degF] Agusto Aichholz PHOSPHORIC ACID OPERATOR Work Phone: [facility] 12-04-2024 10:57-0400 Body weight 60.78 kg Agusto Aichholz PHOSPHORIC ACID OPERATOR Work Phone: [facility] 12-04-2024 10:57-0400 Diastolic blood pressure 72 mm[Hg] Agusto Aichholz PHOSPHORIC ACID OPERATOR Work Phone: [facility] 12-04-2024 10:57-0400 Heart rate 61 /min Agusto Aichholz PHOSPHORIC ACID OPERATOR Work Phone: [facility] 12-04-2024 10:57-0400 Respiratory rate 20 /min Agusto Aichholz PHOSPHORIC ACID OPERATOR Work Phone: [facility] 12-04-2024 10:57-0400 SaO2% (BldA) [Mass fraction] 97 % Agusto Aichholz PHOSPHORIC ACID OPERATOR Work Phone: [facility] 12-04-2024 10:57-0400 Systolic blood pressure 134 mm[Hg] Agusto Aichholz PHOSPHORIC ACID OPERATOR Work Phone: [facility] 11-26-2024 12:12-0400 Diastolic blood pressure 79 mm[Hg] Agusto Aichholz Work Phone: [facility] 11-26-2024 12:12-0400 Heart rate 69 /min Agusto Aichholz Work Phone: [facility] 11-26-2024 12:12-0400 Respiratory rate 18 /min Agusto Aichholz Work Phone: [facility] 11-26-2024 12:12-0400 SaO2% (BldA) [Mass fraction] 96 % Agusto Aichholz Work Phone: [facility] 11-26-2024 12:12-0400 Systolic blood pressure 191 mm[Hg] Agusto Aichholz Work Phone: [facility] 11-26-2024 08:10-0400 Body temperature 98 [degF] Agusto Aichholz Work Phone: [facility] 11-26-2024 05:28-0400 Body weight 60.4 kg Agusto Aichholz Work Phone: [facility] 11-25-2024 14:27-0400 Body height 152.4 cm Agusto Aichholz Work Phone: [facility] 11-23-2024 20:05-0400 Diastolic blood pressure 57 mm[Hg] Agusto Aichholz Work Phone: [facility] 11-23-2024 20:05-0400 Heart rate 66 /min Agusto Aichholz Work Phone: [facility] 11-23-2024 20:05-0400 Respiratory rate 25 /min Agusto Aichholz Work Phone: [facility] 11-23-2024 20:05-0400 SaO2% (BldA) [Mass fraction] 97 % Agusto Aichholz Work Phone: [facility] 11-23-2024 20:05-0400 Systolic blood pressure 122 mm[Hg] Agusto Aichholz Work Phone: [facility] 11-23-2024 15:12-0400 Body height 152.4 cm Agusto Aichholz Work Phone: [facility] 11-23-2024 15:12-0400 Body temperature 98.1 [degF] Agusto Richholz Work Phone: [facility] 11-23-2024 15:12-0400 Body weight 60.15 kg Agusto Richholz Work Phone: [facility] 11-18-2024 10:17-0400 Body mass index (BMI) [Ratio] 25.58 kg/m2 Agusto Aichholz PHOSPHORIC ACID OPERATOR Work Phone: [facility] 11-18-2024 10:17-0400 Body temperature 97.81 [degF] Agusto Aichholz PHOSPHORIC ACID OPERATOR Work Phone: [facility] 11-18-2024 10:17-0400 Body weight 59.42 kg Agusto Richholz PHOSPHORIC ACID OPERATOR Work Phone: [facility] 11-18-2024 10:17-0400 Diastolic blood pressure 96 mm[Hg] Agusto Aichholz PHOSPHORIC ACID OPERATOR Work Phone: [facility] [facility] 11-18-2024 10:17-0400 Heart rate 73 /min Agusto Aichholz PHOSPHORIC ACID OPERATOR Work Phone: [facility] 11-18-2024 10:17-0400 Respiratory rate 19 /min Agusto Aichholz PHOSPHORIC ACID OPERATOR Work Phone: [facility] 11-18-2024 10:17-0400 SaO2% (BldA) [Mass fraction] 99 % Agusto Aichholz PHOSPHORIC ACID OPERATOR Work Phone: [facility] 11-18-2024 10:17-0400 Systolic blood pressure 164 mm[Hg] Agusto Aichholz PHOSPHORIC ACID OPERATOR Work Phone: [facility] 10-09-2024 11:10-0500 Diastolic blood pressure 97 mm[Hg] Sweta Verhoff PA-C Work Phone: [facility] 10-09-2024 11:10-0500 Heart rate 78 /min Sweta Verhoff PA-C Work Phone: [facility] 10-09-2024 11:10-0500 Respiratory rate 20 /min Sweta Verhoff PA-C Work Phone: [facility] 10-09-2024 11:10-0500 Systolic blood pressure 200 mm[Hg] Sweta Verhoff PA-C Work Phone: [facility] 09-11-2024 11:11-0500 Diastolic blood pressure 100 mm[Hg] Agustosahara Zapataholz PHOSPHORIC ACID OPERATOR Work Phone: [facility] 09-11-2024 11:11-0500 Systolic blood pressure 200 mm[Hg] Agusto Aichholz PHOSPHORIC ACID OPERATOR Work Phone: [facility] 09-11-2024 10:57-0500 Body height 152.4 cm Agusto Aichholz PHOSPHORIC ACID OPERATOR Work Phone: [facility] 09-11-2024 10:57-0500 Body mass index (BMI) [Ratio] 25.58 kg/m2 Agusto Aichholz PHOSPHORIC ACID OPERATOR Work Phone: [facility] 09-11-2024 10:57-0500 Body temperature 98.8 [degF] Agusto Aichholz PHOSPHORIC ACID OPERATOR Work Phone: [facility] 09-11-2024 10:57-0500 Body weight 59.42 kg Agusto Aichholz PHOSPHORIC ACID OPERATOR Work Phone: [facility] 09-11-2024 10:57-0500 Heart rate 74 /min Agusto Aichholz PHOSPHORIC ACID OPERATOR Work Phone: [facility] 09-11-2024 10:57-0500 Respiratory rate 18 /min Agusto Aichholz PHOSPHORIC ACID OPERATOR Work Phone: [facility] 09-11-2024 10:57-0500 SaO2% (BldA) [Mass fraction] 97 % Agusto Aichholz PHOSPHORIC ACID OPERATOR Work Phone: [facility] 09-08-2024 08:00-0500 Body temperature 97.9 [degF] Agusto Aichholz Work Phone: [facility] 09-08-2024 08:00-0500 Diastolic blood pressure 79 mm[Hg] Agusto Aichholz Work Phone: [facility] 09-08-2024 08:00-0500 Heart rate 64 /min Agusto Aichholz Work Phone: [facility] 09-08-2024 08:00-0500 Respiratory rate 16 /min Agusto Aichholz Work Phone: [facility] 09-08-2024 08:00-0500 SaO2% (BldA) [Mass fraction] 96 % Agusto Aichholz Work Phone: [facility] 09-08-2024 08:00-0500 Systolic blood pressure 169 mm[Hg] Agusto Aichholz Work Phone: [facility] 09-08-2024 06:50-0500 Body weight 54.7 kg Agusto Aichholz Work Phone: [facility] 09-06-2024 12:51-0500 Body height 152.4 cm Agusto Aichholz Work Phone: [facility] 09-06-2024 00:36-0500 Body height 152.4 cm Agusto Aichholz Work Phone: [facility] 09-06-2024 00:36-0500 Body temperature 97.6 [degF] Agusto Aichholz Work Phone: [facility] 09-06-2024 00:36-0500 Body weight 57.6 kg Agusto Aichholz Work Phone: [facility] 09-06-2024 00:36-0500 Diastolic blood pressure 71 mm[Hg] Agusto Aichholz Work Phone: [facility] 09-06-2024 00:36-0500 Heart rate 75 /min Agusto Jodiholz Work Phone: [facility] 09-06-2024 00:36-0500 Respiratory rate 18 /min Agusto Aichholz Work Phone: [facility] 09-06-2024 00:36-0500 SaO2% (BldA) [Mass fraction] 97 % Agusto Richholz Work Phone: [facility] 09-06-2024 00:36-0500 Systolic blood pressure 160 mm[Hg] Agusto Richholz Work Phone: [facility] 09-04-2024 11:25-0500 Diastolic blood pressure 110 mm[Hg] [facility] 09-04-2024 11:25-0500 Systolic blood pressure 216 mm[Hg] [facility] 09-04-2024 11:23-0500 Body height 152.4 cm [facility] 09-04-2024 11:23-0500 Body mass index (BMI) [Ratio] 24.9 kg/m2 [facility] 09-04-2024 11:23-0500 Body temperature 96.5 [degF] [facility] 09-04-2024 11:23-0500 Body weight 57.83 kg [facility] 09-04-2024 11:23-0500 Heart rate 73 /min [facility] 09-04-2024 11:23-0500 Respiratory rate 16 /min [facility] 09-04-2024 11:23-0500 SaO2% (BldA) [Mass fraction] 99 % [facility] 08-27-2024 14:36-0500 Body height 152.4 cm Agusto Aysha PHOSPHORIC ACID OPERATOR Work Phone: [facility] 08-27-2024 14:36-0500 Body mass index (BMI) [Ratio] 25.94 kg/m2 Agusto Cainz PHOSPHORIC ACID OPERATOR Work Phone: [facility] 08-27-2024 14:36-0500 Body temperature 98.8 [degF] Agustosahara Bralowz PHOSPHORIC ACID OPERATOR Work Phone: [facility] 08-27-2024 14:36-0500 Body weight 60.24 kg Agustosahara Barlowz PHOSPHORIC ACID OPERATOR Work Phone: [facility] Comment on above: with winter coat on 08-27-2024 14:36-0500 Diastolic blood pressure 86 mm[Hg] Agusto Jodiholz PHOSPHORIC ACID OPERATOR Work Phone: [facility] 08-27-2024 14:36-0500 Heart rate 71 /min Agusto Richholz PHOSPHORIC ACID OPERATOR Work Phone: [facility] 08-27-2024 14:36-0500 Respiratory rate 20 /min Agusto Jodiholz PHOSPHORIC ACID OPERATOR Work Phone: [facility] 08-27-2024 14:36-0500 SaO2% (BldA) [Mass fraction] 97 % Agusto Jodiholz PHOSPHORIC ACID OPERATOR Work Phone: [facility] 08-27-2024 14:36-0500 Systolic blood pressure 178 mm[Hg] Agusto Richholz PHOSPHORIC ACID OPERATOR Work Phone: [facility] 06-11-2024 11:32-0400 Body height 152.4 cm Agusto Richholz PHOSPHORIC ACID OPERATOR Work Phone: [facility] 06-11-2024 11:32-0400 Body mass index (BMI) [Ratio] 25.19 kg/m2 Agusto Jodiholz PHOSPHORIC ACID OPERATOR Work Phone: [facility] 06-11-2024 11:32-0400 Body temperature 98.1 [degF] Agusto Richholz PHOSPHORIC ACID OPERATOR Work Phone: [facility] 06-11-2024 11:32-0400 Body weight 58.51 kg Agusto Richholz PHOSPHORIC ACID OPERATOR Work Phone: [facility] 06-11-2024 11:32-0400 Diastolic blood pressure 82 mm[Hg] Agusto Aichholz PHOSPHORIC ACID OPERATOR Work Phone: [facility] 06-11-2024 11:32-0400 Heart rate 75 /min Agusto Francisenrico PHOSPHORIC ACID OPERATOR Work Phone: [facility] 06-11-2024 11:32-0400 Respiratory rate 18 /min Agusto Zapatamundo PHOSPHORIC ACID OPERATOR Work Phone: [facility] 06-11-2024 11:32-0400 SaO2% (BldA) [Mass fraction] 97 % Agusto Zapatamundo PHOSPHORIC ACID OPERATOR Work Phone: [facility] 06-11-2024 11:32-0400 Systolic blood pressure 140 mm[Hg] Agusto Zapatamundo PHOSPHORIC ACID OPERATOR Work Phone: [facility] 06-05-2024 15:05-0400 Body height 154.94 cm [facility] 06-05-2024 15:05-0400 Body mass index (BMI) [Ratio] 23.4 kg/m2 [facility] 06-05-2024 15:05-0400 Body temperature 97.6 [degF] [facility] 06-05-2024 15:05-0400 Body weight 56.3 kg [facility] 06-05-2024 15:05-0400 Diastolic blood pressure 75 mm[Hg] [facility] 06-05-2024 15:05-0400 Heart rate 86 /min [facility] 06-05-2024 15:05-0400 Respiratory rate 16 /min [facility] 06-05-2024 15:05-0400 SaO2% (BldA) [Mass fraction] 97 % [facility] 06-05-2024 15:05-0400 Systolic blood pressure 123 mm[Hg] [facility] 05-01-2024 10:45-0400 Diastolic blood pressure 96 mm[Hg] Juanito Barnard MD Work Phone: [facility] 05-01-2024 10:45-0400 Heart rate 74 /min Juanito Barnard MD Work Phone: [facility] 05-01-2024 10:45-0400 Systolic blood pressure 173 mm[Hg] Juanito Barnard MD Work Phone: [facility] 04-16-2024 14:25-0400 Body height 152.4 cm Agustosahara Olmstead PHOSPHORIC ACID OPERATOR Work Phone: [facility] 04-16-2024 14:25-0400 Body mass index (BMI) [Ratio] 24.88 kg/m2 Agusto Richholz PHOSPHORIC ACID OPERATOR Work Phone: [facility] 04-16-2024 14:25-0400 Body temperature 97.81 [degF] Agusto Jodiholz PHOSPHORIC ACID OPERATOR Work Phone: [facility] 04-16-2024 14:25-0400 Body weight 57.79 kg Agusto Cainz PHOSPHORIC ACID OPERATOR Work Phone: [facility] 04-16-2024 14:25-0400 Diastolic blood pressure 80 mm[Hg] Agusto Richholz PHOSPHORIC ACID OPERATOR Work Phone: [facility] 04-16-2024 14:25-0400 Heart rate 80 /min Agusto Richholz PHOSPHORIC ACID OPERATOR Work Phone: [facility] 04-16-2024 14:25-0400 Respiratory rate 18 /min Agusto Jodiholz PHOSPHORIC ACID OPERATOR Work Phone: [facility] 04-16-2024 14:25-0400 SaO2% (BldA) [Mass fraction] 95 % Agusto Jodiholz PHOSPHORIC ACID OPERATOR Work Phone: [facility] 04-16-2024 14:25-0400 Systolic blood pressure 116 mm[Hg] Agusto Richholz PHOSPHORIC ACID OPERATOR Work Phone: [facility] 03-26-2024 10:48-0400 Body mass index (BMI) [Ratio] 24.41 kg/m2 Carmenza Espinosa MD Work Phone: [facility] 03-26-2024 10:48-0400 Body weight 56.7 kg Carmenza Espinosa MD Work Phone: [facility] Comment on above: [place] 01-12-2024 13:50-0400 Diastolic blood pressure 69 mm[Hg] Taurus Ballard MD Work Phone: [facility] 01-12-2024 13:50-0400 Heart rate 75 /min Taurus Ballard MD Work Phone: [facility] 01-12-2024 13:50-0400 Systolic blood pressure 142 mm[Hg] Taurus Ballard MD Work Phone: [facility] 10-25-2023 15:12-0500 Blood Pressure Location HEIDY ARNOLD [facility] 10-25-2023 15:12-0500 Body temperature 96.8 [degF] HEIDY DOMINGORY [facility] 10-25-2023 15:12-0500 Diastolic blood pressure 78 mm[Hg] HEIDY ARNOLD [facility] 10-25-2023 15:12-0500 Heart rate 86 /min HEIDY ARNOLD [facility] 10-25-2023 15:12-0500 Systolic blood pressure 122 mm[Hg] HEIDY CATALINA [facility] 08-01-2023 15:00-0500 Body height 154.94 cm [facility] 06-08-2023 13:00-0400 Body height 154.94 cm Tondra Mapus Other [employer] Other 06-08-2023 13:00-0400 Body mass index (BMI) [Ratio] 25.37 kg/m2 Tondra Mapus Other [employer] Other 10-19-2023 13:00-0400 Body weight 60.92 kg Tondra Mapus Other [employer] Other 06-08-2023 13:00-0400 Diastolic blood pressure 66 mm[Hg] Tondra Mapus Other [employer] Other 06-08-2023 13:00-0400 Respiratory rate 18 /min Tondra Mapus Other [employer] Other 06-08-2023 13:00-0400 SaO2% (BldA) [Mass fraction] 100 % Tondra Mapus Other [employer] Other 06-08-2023 13:00-0400 Systolic blood pressure 107 mm[Hg] Tondra Mapus Other [employer] Other 05-18-2023 11:00-0400 Body height 154.94 cm Tondra Mapus Other [employer] Other 05-18-2023 11:00-0400 Body mass index (BMI) [Ratio] 24.69 kg/m2 Tondra Mapus Other [employer] Other 05-18-2023 11:00-0400 Body weight 59.29 kg Tondra Mapus Other [employer] Other 05-18-2023 11:00-0400 Diastolic blood pressure 96 mm[Hg] Tondra Mapus Other [employer] Other 05-18-2023 11:00-0400 Respiratory rate 18 /min Tondra Mapus Other [employer] Other 05-18-2023 11:00-0400 SaO2% (BldA) [Mass fraction] 97 % Tondra Mapus Other [facility] [employer] Other 05-18-2023 11:00-0400 Systolic blood pressure 161 mm[Hg] Tondra Mapus Other [employer] Other 02-22-2023 08:34-0400 Blood Pressure Location Lisa Lue [facility] 02-22-2023 08:34-0400 Diastolic blood pressure 66 mm[Hg] Lisa Lue [facility] 02-22-2023 08:34-0400 Heart rate 76 /min Lisa Lue [facility] 02-22-2023 08:34-0400 Systolic blood pressure 106 mm[Hg] Lisa Lue [facility] 12-27-2022 16:00-0400 Body height 154.94 cm Eli Nathansincere Other [facility] [employer] Other 12-27-2022 16:00-0400 Body mass index (BMI) [Ratio] 26.11 kg/m2 Eli Nathansincere Other [facility] [employer] Other 12-27-2022 16:00-0400 Body temperature 96.5 [degF] Eli Sprague Other [facility] [employer] Other 12-27-2022 16:00-0400 Body weight 62.69 kg Eli Sprague Other [facility] Other 12-27-2022 16:00-0400 Diastolic blood pressure 98 mm[Hg] Eli Sprague Other [facility] [employer] Other 12-27-2022 16:00-0400 Respiratory rate 18 /min Eli Sprague Other [employer] Other 12-27-2022 16:00-0400 SaO2% (BldA) [Mass fraction] 98 % Eli Sprague Other [facility] [employer] Other 12-27-2022 16:00-0400 Systolic blood pressure 151 mm[Hg] Eli Sprague Other [facility] [employer] Other 09-21-2022 08:42-0500 Blood Pressure Location Lisa Lue [facility] 09-21-2022 08:42-0500 Diastolic blood pressure 67 mm[Hg] Lisa Lue [facility] 09-21-2022 08:42-0500 Heart rate 74 /min Lisa Lue [facility] 09-21-2022 08:42-0500 Systolic blood pressure 103 mm[Hg] Lisa Lue [facility] Encounters Encounter Date Encounter Type Care Provider Facility Start: 03-17-2025 End: 03-17-2025 ambulatory PHYSICIAN [facility] Work Phone: Start: 03-17-2025 End: 03-17-2025 Patient encounter procedure Eli Sprague MD [facility] Work Phone: Start: 03-13-2025 End: 03-14-2025 Refann Gray CNA [facility] Comment on above: Complex regional saranya n syndrome type 1 of right upper extremity; Reflex sympathetic dystrophy of right upper extremity Start: 03-12-2025 End: 03-12-2025 Office outpatient visit 25 minutes Sweta Ch PA-C Work Phone: [facility] Comment on above: Complex regional saranya n syndrome type 1 of right upper extremity (Primary Dx) Start: 03-12-2025 End: 03-12-2025 ambulatory [facility] Start: 03-03-2025 End: 03-14-2025 Telephone encounter Sweta Ch PA-C Work Phone: [facility] Start: 02-28-2025 End: 02-28-2025 ambulatory ZACKERY Rodriguez [facility] Start: 02-11-2025 End: 02-11-2025 Departed Referred Jori Tillman DO -[facility] Start: 02-11-2025 End: 02-14-2025 ambulatory Agusto Olmstead Work Phone: [facility] Work Phone: Comment on above: 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 Start: 02-06-2025 End: 03-06-2025 Telephone encounter Asia Barreto RN [facility] Start: 01-30-2025 End: 01-30-2025 Clinisync Result Encounter Agusto Olmstead NP Work Phone: [facility] External [facility] Unsolicited Start: 01-30-2025 End: 01-30-2025 Clinisync Result Encounter Agusto Olmstead NP Work Phone: [facility] Unsolicited Start: 01-27-2025 End: 01-27-2025 Office outpatient visit 40 minutes Agusto Olmstead NP Work Phone: [facility] Comment on above: Chronic kidney disea se, stage 4 (severe) ([facility]) (Primary Dx); Mixed hyperlipidemia ([facility]); Essential (primary) hypertension ([facility]); Burning with urination; UTI symptoms; Urinary tract infection symptoms; Type 2 diabetes mellitus with diabetic neuropathy, with long-term current use of insulin ([facility]); History of neurogenic bladder; Neurogenic bladder; 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; Hyperparathyroidism, unspecified ([facility]); B12 deficiency; Type 2 diabetes mellitus with hyperglycemia, with long-term current use of insulin ([facility]); Vitamin D deficiency; Hypomagnesemia; Non compliance w medication regimen; Fatigue, unspecified type; Other fatigue Start: 01-27-2025 End: 01-27-2025 ambulatory AGUSTO OLMSTEAD Not Available Start: 01-27-2025 End: 01-27-2025 Bamboo flowsheet Agusto Olmstead PHOSPHORIC ACID OPERATOR Work Phone: [facility] Start: 01-27-2025 End: 01-27-2025 Bamboo flowsheet Agusto Olmstead PHOSPHORIC ACID OPERATOR Work Phone: [facility] Start: 01-15-2025 End: 01-17-2025 Refill Asia Barreto RN [facility] Comment on above: 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; Complex regional pain syndrome type 1 of right upper extremity Start: 01-08-2025 End: 01-08-2025 Office outpatient visit 25 minutes Sweta Ch PA-C Work Phone: [facility] Comment on above: 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 (Primary Dx) Start: 01-08-2025 End: 01-08-2025 ambulatory SWETA CH [facility] Start: 12-18-2024 End: 12-20-2024 Refill Agusto Gray CNA [facility] Comment on above: 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 Start: 12-05-2024 End: 12-05-2024 ambulatory CORY ANGELES Not Available Start: 12-05-2024 End: 12-05-2024 Postop follow up visit related to original px Cory Angeles DPM Work Phone: [facility] Comment on above: Cellulitis of right foot (Primary Dx); Laceration of right foot with foreign body, initial encounter; Diabetes mellitus due to underlying condition with diabetic polyneuropathy, with long-term current use of insulin ([facility]) Start: 12-04-2024 End: 12-04-2024 Bamboo flowsheet Agusto Aichholz PHOSPHORIC ACID OPERATOR Work Phone: [facility] Start: 12-04-2024 End: 12-04-2024 Bamboo flowsheet Agusto Aichholz PHOSPHORIC ACID OPERATOR Work Phone: [facility] Start: 12-04-2024 End: 12-04-2024 Office outpatient visit 25 minutes Agusto Aysha PHOSPHORIC ACID OPERATOR Work Phone: [facility] Comment on above: Acute renal failure, unspecified acute renal failure type (CMS/HCC) (Primary Dx); Chronic kidney disease, stage 4 (severe) ([facility]); Essential (primary) hypertension ([facility]); Type 2 diabetes mellitus with diabetic neuropathy, with long-term current use of insulin ([facility]); History of neurogenic bladder; Type 2 diabetes mellitus with hyperglycemia, with long-term current use of insulin ([facility]); 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 ([facility]); Non compliance w medication regimen; Memory impairment Start: 12-04-2024 End: 12-04-2024 ambulatory AGUSTO AICHHOLZ Not Available Start: 11-24-2024 Non-patient / Non-visit Agusto Aichholz Work Phone: [facility] Work Phone: Start: 11-23-2024 End: 11-26-2024 Evaluation and management of inpatient Agusto Aichholz Work Phone: [facility] Work Phone: Start: 11-21-2024 End: 11-22-2024 Clinisync Result Encounter Agusto Zapatamundo PHOSPHORIC ACID OPERATOR Work Phone: [facility] External [facility] Unsolicited Start: 11-21-2024 End: 11-22-2024 Clinisync Result Encounter Agusto Zapatamundo PHOSPHORIC ACID OPERATOR Work Phone: [facility] External [facility] Unsolicited Start: 11-18-2024 End: 11-18-2024 Bamboo flowsheet Agusto Ricapurvamundo PHOSPHORIC ACID OPERATOR Work Phone: [facility] Start: 11-18-2024 End: 11-18-2024 Bamboo flowsheet Agsuto Ricapurvamundo PHOSPHORIC ACID OPERATOR Work Phone: [facility] Start: 11-18-2024 End: 11-18-2024 Patient encounter procedure Agusto Ricapurvamundo PHOSPHORIC ACID OPERATOR Work Phone: [facility] Comment on above: Encounter for subseq uent annual wellness visit (AWV) in Medicare patient (Primary Dx); RSD (reflex sympathetic dystrophy); Type 2 diabetes mellitus with diabetic neuropathy, with long-term current use of insulin ([facility]); Essential (primary) hypertension ([facility]); Chronic kidney disease, stage 4 (severe) ([facility]) ; Type 2 diabetes mellitus with hyperglycemia, with long-term current use of insulin ([facility]); care home (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 ([facility]); Non compliance w medication regimen; Right foot pain; Chest pain, unspecified type; Continuous leakage of urine; Neurogenic bladder Start: 11-18-2024 End: 11-18-2024 ambulatory AGUSTO AICHHOLZ Not Available Start: 11-15-2024 End: 11-15-2024 Refill Barbara Lucero RN [facility] Comment on above: 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 Start: 11-14-2024 End: 11-14-2024 Clinisync Result Encounter Agusto Aysha PHOSPHORIC ACID OPERATOR Work Phone: [facility] Unsolicited Start: 11-14-2024 End: 11-14-2024 Clinisync Result Encounter Agusto Aichholz PHOSPHORIC ACID OPERATOR Work Phone: [facility] External Department Unsolicited Start: 11-14-2024 End: 11-15-2024 Refill Lila Che RN [facility] Comment on above: 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; Complex regional pain syndrome type 1 of right upper extremity Start: 11-11-2024 End: 11-11-2024 Orders Only Agusto Olmstead PHOSPHORIC ACID OPERATOR Work Phone: [facility] Comment on above: Right foot pain (Radha adama Dx) Start: 10-29-2024 End: 10-29-2024 Refill Agusto Olmstead PHOSPHORIC ACID OPERATOR Work Phone: [facility] Comment on above: Type 2 diabetes maria m itus with hyperglycemia, with long-term current use of insulin ([facility]) (Primary Dx) Start: 10-24-2024 End: 10-24-2024 Bamboo flowsheet Agusto Olmstead PHOSPHORIC ACID OPERATOR Work Phone: [facility] Start: 10-24-2024 End: 10-24-2024 Bamboo flowsheet Agusto Olmstead PHOSPHORIC ACID OPERATOR Work Phone: [facility] Start: 10-24-2024 End: 10-25-2024 Refill Asia Barreto RN [facility] Comment on above: Complex regional saranya n syndrome type 1 of right upper extremity; Reflex sympathetic dystrophy of right upper extremity Start: 10-10-2024 End: 10-11-2024 Refill Yesenia Burnett RN [facility] Comment on above: 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; Complex regional pain syndrome type 1 of right upper extremity Start: 10-09-2024 End: 10-09-2024 Office outpatient visit 25 minutes Sweta Ch PA-C Work Phone: [facility] Comment on above: Complex regional saranya n syndrome type 1 of right upper extremity (Primary Dx) Start: 10-09-2024 End: 10-09-2024 ambulatory SWETA CH [facility] Start: 09-13-2024 End: 09-13-2024 Refill Barbara Lucero RN [facility] Comment on above: 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 Start: 09-11-2024 End: 09-11-2024 Bamboo flowsheet Agusto Aysha PHOSPHORIC ACID OPERATOR Work Phone: [facility] Start: 09-11-2024 End: 09-11-2024 Bamboo flowsheet Agusto Richmundo PHOSPHORIC ACID OPERATOR Work Phone: [facility] Start: 09-11-2024 End: 09-11-2024 Office outpatient visit 25 minutes Agusto Aysha PHOSPHORIC ACID OPERATOR Work Phone: [facility] Comment on above: Type 2 diabetes maria m itus with diabetic neuropathy, with long- term current use of insulin (CMS/[facility]) (Primary Dx); Malignant neoplasm of cervix uteri, unspecified (CMS/HCC); Rheumatoid arthritis, unspecified (CMS/HCC); Essential (primary) hypertension (CMS/HCC); Chronic kidney disease, stage 4 (severe) (CMS/HCC); Neurogenic bladder; Type 2 diabetes mellitus with hyperglycemia, with long-term current use of insulin (CMS/HCC); Immunodeficiency due to conditions classified elsewhere (CMS/HCC); care home (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 (CMS/HCC) Start: 09-11-2024 End: 09-11-2024 ambulatory AGUSTO AICHHOLZ Not Available Start: 09-09-2024 End: 09-09-2024 Telephone encounter Heidy Belcher CMA [facility] Start: 09-06-2024 Non-patient / Non-visit Agusto Aichholz Work Phone: [facility] Work Phone: Start: 09-05-2024 End: 09-08-2024 Evaluation and management of inpatient Agusto Aichholz Work Phone: [facility] Work Phone: Start: 09-04-2024 Non-patient / Non-visit Agusto Olmstead Work Phone: [facility] Physician [facility] ER Work Phone: Start: 09-04-2024 End: 09-07-2024 Clinisync Result Encounter Generic External Data Provider [facility] External Department Unsolicited Start: 09-04-2024 End: 09-07-2024 Clinisync Result Encounter Generic External Data Provider [facility] External Department Unsolicited Start: 09-04-2024 End: 09-04-2024 ambulatory [facility] Work Phone: Start: 09-04-2024 End: 09-04-2024 Patient encounter procedure [facility] [place] Work Phone: Start: 08-28-2024 End: 08-28-2024 Clinisync Result Encounter Generic External Data Provider [facility] External Department Unsolicited Start: 08-28-2024 End: 08-28-2024 Clinisync Result Encounter Generic External Data Provider [facility] External Department Unsolicited Start: 08-28-2024 Non-patient / Non-visit [facility] Work Phone: Start: 08-27-2024 End: 08-27-2024 Office outpatient visit 25 minutes Agusto Olmstead PHOSPHORIC ACID OPERATOR Work Phone: [facility] Comment on above: Essential (primary) hypertension (CMS/HCC) (Primary Dx); Type 2 diabetes mellitus with diabetic neuropathy, with long-term current use of insulin (CMS/HCC); Chronic kidney disease, stage 4 (severe) (CMS/HCC); Neurogenic bladder; Type 2 diabetes mellitus with hyperglycemia, with long-term current use of insulin (CMS/HCC); Type 2 diabetes mellitus with diabetic neuropathy, unspecified whether long-term insulin use (CMS/HCC); Other chest pain; Continuous leakage of urine Start: 08-27-2024 End: 08-27-2024 Bamboo flowsheet Agusto Olmstead PHOSPHORIC ACID OPERATOR Work Phone: [facility] Start: 08-27-2024 End: 08-27-2024 Bamboo flowsheet Agusto Olmstead PHOSPHORIC ACID OPERATOR Work Phone: [facility] Start: 08-27-2024 End: 08-27-2024 ambulatory AGUSTO AYSHA Not Available Start: 08-22-2024 End: 08-23-2024 Refill Asia Barreto RN [facility] Comment on above: 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 Start: 08-13-2024 End: 08-13-2024 Orders Only Agusto Aysha PHOSPHORIC ACID OPERATOR Work Phone: [facility] Start: 08-12-2024 Non-patient / Non-visit Agusto Aysha Work Phone: [facility] Work Phone: Start: 08-08-2024 End: 08-08-2024 Clinisync Result Encounter Agusto Aysha PHOSPHORIC ACID OPERATOR Work Phone: [facility] External Department Unsolicited Start: 08-08-2024 End: 08-08-2024 Clinisync Result Encounter Agusto Cainz PHOSPHORIC ACID OPERATOR Work Phone: [facility] External Department Unsolicited Start: 07-03-2024 End: 07-03-2024 [facility] Start: 06-26-2024 End: 06-26-2024 Telephone encounter Adama Velasco RN Work Phone: Urology Comment on above: On Call Pharmacy Technician - O ther; Returning Patient's Call Start: 06-11-2024 End: 06-11-2024 Bamboo flowsheet Agusot Olmstead PHOSPHORIC ACID OPERATOR Work Phone: [facility] Start: 06-11-2024 End: 06-11-2024 Bamboo flowsheet Agusto Aysha PHOSPHORIC ACID OPERATOR Work Phone: [facility] Start: 06-11-2024 End: 06-11-2024 Office outpatient visit 25 minutes Agusto Olmstead PHOSPHORIC ACID OPERATOR Work Phone: [facility] Comment on above: Type 2 diabetes maria m itus with hyperglycemia, with long-term current use of insulin ([facility]) (Primary Dx); Type 2 diabetes mellitus with diabetic chronic kidney disease ([facility]/HCC); Chronic kidney disease, stage 3b (HCC) ([facility]); Hyperparathyroidism, unspecified ([facility]); Malignant neoplasm of cervix uteri, unspecified ([facility]); Rheumatoid arthritis, unspecified ([facility]); Essential (primary) hypertension ([facility]); 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; Iron deficiency anemia, unspecified iron deficiency anemia type; Primary hypertension ([facility]); Type 2 diabetes mellitus with diabetic neuropathy, unspecified whether long-term insulin use ([facility]); RSD (reflex sympathetic dystrophy); Continuous leakage of urine; 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, left, sequela ([facility]); Skin lesion of face Start: 06-11-2024 End: 06-11-2024 ambulatory AGUSTO OLMSTEAD Not Available Start: 06-05-2024 End: 06-05-2024 ambulatory [facility] Work Phone: Start: 06-05-2024 End: 06-05-2024 Patient encounter procedure [facility] Ne[facility] Ashlie Work Phone: Start: 05-10-2024 Non-patient / Non-visit [facility] Work Phone: Start: 05-08-2024 End: 05-08-2024 Refill Agusto Aysha PHOSPHORIC ACID OPERATOR Work Phone: [facility] Comment on above: Nausea and vomiting, [...] Start: 04-26-2024 End: 04-27-2024 Non-patient / Non-visit [facility] Work Phone: Start: 04-26-2024 End: 05-01-2024 [...] Department Unsolicited Start: 04-24-2024 End: 04-24-2024 ambulatory [facility] Start: 04-24-2024 End: 04-24-2024 [facility] Start: 04-18-2024 End: 04-18-2024 Refill Agusto Olmstead PHOSPHORIC ACID OPERATOR Work Phone: [facility] Comment on above: Chronic cough (Prima ry Dx) Start: 04-16-2024 End: 04-16-2024 Office outpatient visit 25 minutes Agusto Olmstead PHOSPHORIC ACID OPERATOR Work Phone: [facility] Comment on above: Chronic cough (Prima [...] 04-16-2024 End: 04-16-2024 Bamboo flowsheet Agusto Aysha PHOSPHORIC ACID OPERATOR Work Phone: [facility] Start: 04-16-2024 End: 04-16-2024 Bamboo flowsheet Agusto Ricapurvamundo PHOSPHORIC ACID OPERATOR Work Phone: [facility] Start: 04-15-2024 End: 04-15-2024 ambulatory Chioma Durán [facility] Start: 04-09-2024 End: 04-09-2024 ambulatory CARMENZA ESPINOSA Facility:[facility] Start: 04-09-2024 End: 04-09-2024 Patient encounter procedure Carmenza Espinosa MD Work Phone: Urology Comment on above: Neurogenic bladder ( Primary Dx); BURKE (stress urinary incontinence, female) Start: 04-09-2024 End: 04-09-2024 Telemedicine consultation with patient Carmenza Espinosa MD Work Phone: Urology Start: 04-08-2024 End: 04-08-2024 ambulatory [facility] Start: 03-29-2024 End: 03-29-2024 Nursing evaluation of patient and report [facility] Comment on above: Stress incontinence (Primary Dx); Dysfunctional voiding of urine Start: 03-29-2024 End: 03-29-2024 ambulatory TAURUS BALLARD Facility:[facility] Start: 03-27-2024 ambulatory Nuria garrett APRN.MANAGER CONTROL Work Phone: Pulmonary Medicine Start: 03-26-2024 End: 03-26-2024 ambulatory CARMENZA ESPINOSA Facility:[facility] Start: 03-26-2024 End: 03-26-2024 Patient encounter procedure Carmenza Espinosa MD Work Phone: Urology Comment on above: Retention of urine ( Primary Dx); Screening for genitourinary condition; Type 2 diabetes mellitus with hyperglycemia, with long-term current use of insulin (HCC); BURKE (stress urinary incontinence, female) Start: 02-26-2024 Telephone encounter Flavio Coon RN Ur ology Start: 02-12-2024 Telephone encounter Vonnie Wilder RN Ur ology Comment on above: Results - Ct Start: 02-01-2024 End: 02-01-2024 ambulatory TAURUS BALLARD Facility:[facility] Start: 02-01-2024 End: 02-01-2024 Subsequent hospital visit by physician Arrival Time Radiology Work Phone: Radiology Pet CT Comment on above: Other hydronephrosis [N13.39] Start: 01-12-2024 End: 01-12-2024 Patient encounter procedure Taurus Ballard MD Work Phone: Urology Comment on above: Other hydronephrosis (Primary Dx); Screening for genitourinary condition Start: 01-12-2024 End: 01-12-2024 ambulatory [facility] Facility:[facility] Start: 11-02-2023 ambulatory PA-C HEIDY Noel acility:[facility] [place] Start: 10-25-2023 End: 10-26-2023 ambulatory PA-C HEIDY ARNOLD Facility:[facility] Start: 10-25-2023 End: 10-25-2023 Patient encounter procedure HEIDY ARNOLD [facility] [place] Start: 10-11-2023 Patient encounter procedure Agusto Olmstead NP Work Phone: [facility] Start: 10-10-2023 ambulatory PA-C HEIDY Noel acility:[facility] [place] Start: 09-28-2023 ambulatory Drew Esqueda Research Coordinator [facility] Provider Adult Comment on above: ANAMARIAIANCE IRB# [phone] Start: 09-28-2023 E-mail encounter fro m caregiver Drew Esqueda Research Coordinator [facility] Start: 09-27-2023 Telephone encounter Drew bourne Research Coordinator [facility] Provider Adult Comment on above: Research F/U Start: 09-26-2023 Telephone encounter Drew bourne Research Coordinator [facility] Provider Adult Comment on above: Research F/U Start: 09-12-2023 End: 09-13-2023 ambulatory PA-C HEIDY ARNOLD Facility:[facility] Start: 09-12-2023 End: 09-12-2023 Patient encounter procedure HEIDY ARNOLD [facility] Start: 09-05-2023 End: 09-05-2023 ambulatory Tondra Mapus Other [employer] Other Start: 09-05-2023 Telephone encounter Tondra Mapus [facility] Start: 08-01-2023 End: 08-01-2023 Patient encounter procedure [facility] Nephrology Michael Work Phone: Start: 07-18-2023 End: 07-19-2023 ambulatory PA-C HEIDY ARNOLD Facility:[facility] [place] [place] Start: 07-05-2023 End: 07-05-2023 Orders Only Taurus Ballard MD Work Phone: Urology Comment on above: Kidney cyst, acquire d (Primary Dx) Start: 07-05-2023 Telephone encounter Eli PAYNE Nephrology Start: 06-28-2023 End: 06-29-2023 [facility]ulatory [facility] Start: 06-28-2023 End: 06-28-2023 Patient encounter procedure Lisa Olvera [facility] Start: 06-26-2023 End: 06-26-2023 ambulatory Tondra Mapus Other [employer] Other Start: 06-26-2023 Telephone encounter Tondra Mapus [facility] Start: 06-23-2023 Telephone encounter Heidy salas RN Urology Comment on above: Surgical Followup Start: 06-22-2023 End: 06-23-2023 ambulatory TAURUS BALLARD Facility:[facility] Start: 06-19-2023 ambulatory Taurus newton MD Work Phone: Urology Comment on above: Aislinn Liam upcomin g procedure Start: 06-15-2023 Telephone encounter Vonnie seamanogteresa Comment on above: Pre-Op Teaching Start: 06-12-2023 End: 06-12-2023 ambulatory Tondra Mapus Other [employer] Other Start: 06-12-2023 Telephone encounter Tondra Davide Ortiz [facility] Start: 06-08-2023 End: 06-08-2023 Lab Drop off HEIDY ARNOLD [facility] Start: 06-08-2023 End: 06-08-2023 Patient encounter procedure AGUSTO OLMSTEAD [facility] [employer] Start: 06-08-2023 (PUMP/CGM) Pump / Sensor Sara Augustine [facility] Start: 06-08-2023 End: 06-09-2023 ambulatory PA-C HEIDY ARNOLD [employer] Other Start: 05-22-2023 End: 05-23-2023 ambulatory Lisa Olvera Facility:[facility] Start: 05-22-2023 End: 05-22-2023 Patient encounter procedure Lisa Olvera [facility] Start: 05-18-2023 End: 05-18-2023 ambulatory Tondra Mapus Other [employer] Other Start: 05-18-2023 [facility] visit new patient Tondra Davide [facility] Start: 05-18-2023 Telephone encounter Taurus rees MD Work Phone: Urology Comment on above: Follow Up Start: 05-17-2023 End: 05-17-2023 ambulatory TAURUS BALLARD Facility:[facility] Start: 05-11-2023 End: 2023 ambulatory GIANNI-Esteban ARNOLD Facility:[facility] Start: 05-11-2023 End: 05-11-2023 Lab Drop off HEIDY ARNOLD [facility] Start: 05-03-2023 End: 05-04-2023 ambulatory Lisa Olvera Facility:[facility] Start: 04-18-2023 End: 04-19-2023 ambulatory GIANNI-Esteban ARNOLD Facility:[facility] Start: 04-18-2023 End: 04-19-2023 ambulatory Lisa Olvera Facility:[facility] Start: 04-18-2023 End: 04-18-2023 Lab Drop off HEIDY ARNOLD [facility] Start: 04-18-2023 End: 04-18-2023 Patient encounter procedure Lisa Olvera [facility] Start: 04-04-2023 End: 04-04-2023 ambulatory Brigette Wesley Other [employer] Other Start: 04-04-2023 Telephone encounter Brigette Wesley [facility] Start: 02-22-2023 End: 02-23-2023 ambulatory Lisa M. Chantee Facility:[facility] Start: 02-22-2023 End: 02-22-2023 Patient encounter procedure Lisa Olvera [facility] Start: 01-09-2023 End: 01-09-2023 ambulatory Eli Mendenhalls Other [employer] Other Start: 01-09-2023 Telephone encounter Eli Mendenhalls [facility] Start: 01-03-2023 End: 01-04-2023 ambulatory MANAGER CONTROL AGUSTO AICHHOLZ Facility:[facility] Start: 12-28-2022 End: 12-29-2022 ambulatory MANAGER CONTROL AGUSTO AICHHOLZ Facility:[facility] Start: 12-27-2022 End: 12-27-2022 ambulatory Azyanet Mendenhalls Other [employer] Other Start: 12-27-2022 Office outpatient ne w 30 minutes Eli Mendenhalls [facility] Start: 12-15-2022 End: 12-16-2022 ambulatory MANAGER CONTROL AGUSTO AICHHOLZ Facility:[facility] Start: 12-14-2022 End: 12-15-2022 ambulatory RAMON D YUKO Facility:[facility] Start: 10-27-2022 End: 10-28-2022 ambulatory MANAGER CONTROL AGUSTO AICHHOLZ Facility:[facility] Start: 10-24-2022 End: 10-25-2022 ambulatory MANAGER CONTROL AGUSTO AICHHOLZ Facility:[facility] Start: 10-12-2022 End: 10-13-2022 ambulatory MANAGER CONTROL AGUSTO AICHHOLZ Facility:[facility] Start: 10-05-2022 End: 10-06-2022 ambulatory MANAGER CONTROL AGUSTO AICHHOLZ Facility:[facility] Start: 09-29-2022 End: 09-30-2022 ambulatory MANAGER CONTROL AGUSTO AICHHOLZ Facility:[facility] Start: 09-21-2022 End: 09-22-2022 ambulatory PETER D HIGHLANDER Facility:[facility] Start: 09-21-2022 End: 09-21-2022 Patient encounter procedure Lisa Olvera [facility] Start: 09-15-2022 End: 09-16-2022 ambulatory MANAGER CONTROL AGUSTO AICHHOLZ Facility:[facility] Start: 09-13-2022 End: 01-24-2023 Patient encounter procedure HEIDY ARNOLD [facility] [place] Start: 09-08-2022 End: 09-09-2022 ambulatory MANAGER CONTROL AGUSTO AICHHOLZ Facility:[facility] Start: 09-02-2022 End: 09-03-2022 ambulatory RAMON ENRIQUE Facility:[facility] Start: 08-26-2022 End: 08-27-2022 ambulatory RAMON ENRIQUE Facility:[facility] Start: 08-09-2022 End: 08-10-2022 ambulatory RAMON ENRIQUE Facility:[facility] Start: 08-05-2022 End: 08-06-2022 ambulatory RAMON ENRIQUE Facility:[facility] Start: 08-04-2022 End: 08-05-2022 ambulatory RAMON ENRIQUE Facility:[facility] Start: 08-03-2022 End: 08-04-2022 ambulatory MANAGER CONTROL AGUSTO AICHHOLZ Facility:[facility] Start: 08-02-2022 End: 08-03-2022 ambulatory MANAGER CONTROL AGUSTO AICHHOLZ Facility:[facility] Start: 08-01-2022 End: 08-02-2022 ambulatory MANAGER CONTROL AGUSTO AICHHOLZ Facility:[facility] Start: 07-19-2022 End: 07-20-2022 ambulatory MANAGER CONTROL AGUSTO AICHHOLZ Facility:[facility] Start: 07-08-2022 End: 07-09-2022 ambulatory MANAGER CONTROL AUGSTO AICHHOLZ Facility:[facility] Start: 07-06-2022 End: 07-07-2022 ambulatory MANAGER CONTROL AGUSTO AICHHOLZ Facility:[facility] Start: 07-05-2022 End: 07-06-2022 ambulatory RAMON ENRIQUE Facility:[facility] Start: 06-28-2022 End: 06-29-2022 ambulatory RAMON ENRIQUE Facility:[facility] Start: 06-24-2022 End: 06-25-2022 ambulatory RAMON ENRIQUE Facility:[facility] Start: 06-11-2022 End: 06-16-2022 Evaluation and management of inpatient DR NENO VIEIRA . Facility:[facility] Start: 06-02-2022 End: 06-02-[address] NELL PALMA Facility:[facility] Start: 06-02-2022 End: 06-03-2022 ambulatory RAMON ENRIQUE Facility:[facility] Start: 2022 End: 2022 ambulatory RAQUEL SABA . Facility:[facility] Start: 01-27-2021 End: 01-27-2021 Telephone encounter Barb Silva MD Work Phone: Nephrology Comment on above: Appointment Procedures Date Procedure Procedure Detail Performing Clinician Start: 03-12-2025 UNLISTED LAB TEST Sweta Ch PA-C Work Phone: Start: 02-11-2025 Urine culture PHYSICIAN NO FAMILY Start: 01-30-2025 ALL CBC WITH AUTO DIFF Agusto Aicapurvaholz PHOSPHORIC ACID OPERATOR Work Phone: Start: 01-27-2025 Urnls dip stick/tabl et rgnt non-auto w/o micrscp Agusto Jodiholz PHOSPHORIC ACID OPERATOR Work Phone: Start: 11-25-2024 Radionuclide myocard ial perfusion stress study Agusto Aichholz Work Phone: Start: 11-24-2024 X-ray of right foot Lis a Aichholz Work Phone: Start: 11-23-2024 X-ray of right foot Lis a Aichholz Work Phone: Start: 11-23-2024 CT of abdomen and pe lvis without contrast Agusto Aichholz Work Phone: Start: 11-23-2024 Plain chest X-ray Agusto Aichholz Work Phone: Start: 11-23-2024 Urine culture Agusto Rich mundo Work Phone: Start: 11-21-2024 ALL CBC WITH AUTO DIFF Agusto Richholz PHOSPHORIC ACID OPERATOR Work Phone: Start: 11-21-2024 ECG 12-LEAD Generic Ex ternal Data Provider Start: 11-18-2024 Hemoglobin glycosyla madhavi a1c Agusto Richholz PHOSPHORIC ACID OPERATOR Work Phone: Start: 11-14-2024 XR FOOT RT MIN 3V Agusto Jodiholz PHOSPHORIC ACID OPERATOR Work Phone: Start: 09-06-2024 Ultrasonography of bilateral kidneys Agusto Olmstead Work Phone: Start: 09-05-2024 Urine culture Agusto flower Work Phone: Start: 09-04-2024 Bacteria identified in Urine by Culture Generic External Data Provider Start: 08-28-2024 HMHP CBC WITH PLATEL ET NO DIFFERENTIAL Generic External Data Provider Start: 08-08-2024 MLR HEMOGLOBIN A1C Agusto Olmstead PHOSPHORIC ACID OPERATOR Work Phone: Start: 05-01-2024 Urnls dip stick/tabl et rgnt auto w/o microscopy Bulk Order Provider Start: 04-26-2024 BLOOD CULTURE 1 Generic External Data Provider Start: 04-26-2024 BLOOD CULTURE 2 Generic External Data Provider Start: 04-25-2024 Bacteria identified in Urine by Culture Generic External Data Provider Start: 04-17-2024 Mammography Agusto hills PHOSPHORIC ACID OPERATOR Work Phone: Start: 03-26-2024 Urnls dip [...] H/O: hysterectomy History of hysterectomy Agusto Olmstead PHOSPHORIC ACID OPERATOR Work Phone: Start: 06-22-2023 Laparoscopic partial nephrectomy of left kidney HEIDY CATAILNA Start: 05-22-2023 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 Lisa Olvera Start: 12-28-2022 Mammography Agusto hills PHOSPHORIC ACID OPERATOR Work Phone: Start: 06-16-2022 Microscopic examinat ion of blood, culture KIARA OLMSTEAD Comment on above: Performed By: #### B [id number] ####[facility] [id number] [place] [id number]. Ricardo Rocha Start: 06-13-2022 Detachment at Left F oot, Partial 1st Ray, Open Approach KIARA OLMSTEAD Start: 06-13-2022 Microscopic examinat ion of blood, culture KIARA OLMSTEAD Comment on above: Performed By: #### B [id number] ####[facility] [id number] [place] [id number]. Ricardo Rocha Start: 06-11-2022 Detachment at Left 1 st Toe, Complete, Open Approach KIARA OLMSTEAD Ankle region structu re (body structure) HEIDY ARNODL Arthroscopy of knee HEIDY ARNOLD Cataract (disorder) HEIDY ARNOLD Gallbladder structur e (body structure) HEIDY ARNOLD Hysterectomy HEIDY ARNOLD Neck structure (body structure) HEIDY ARNOLD Shoulder region stru cture (body structure) HEIDY ARNOLD Traumatic partial amputation of left foot HEIDY ARNOLD Upper limb structure (body structure) HEIDY ARNOLD Plan of Treatment Date Care Activity Detail Author Start: 10-02-2026 Glaucoma screening Diabetes: Retinopathy Screening [facility] Start: 04-28-2026 Screening for malignant neoplasm of colon [facility] Start: 03-12-2026 Adult BMI Screening Adult BMI Screening [facility] Start: 03-12-2026 Tobacco Screening Tobacco Screening [facility] Start: 02-28-2026 Tobacco Screening Tobacco Screening [facility] Start: 01-08-2026 Adult BMI Screening Adult BMI Screening [facility] Start: 01-08-2026 Tobacco Screening Tobacco Screening [facility] Start: 12-25-2025 Glaucoma screening Diabetes: Retinopathy Screening [facility] Start: 11-18-2025 Medicare Annual Wellness (AWV) Medicare Annual Wellness (AWV) [facility] Start: 11-07-2025 Glaucoma screening Diabetes: Retinopathy Screening [facility] Start: 10-24-2025 Medicare Annual Wellness (AWV) Medicare Annual Wellness (AWV) [facility] Start: 10-09-2025 Tobacco Screening Tobacco Screening [facility] Start: 08-28-2025 Urine screening for protein Diabetes: Urine Protein Screening [facility] Start: 07-03-2025 Adult BMI Screening Adult BMI Screening [facility] Start: 07-03-2025 Tobacco Screening Tobacco Screening [facility] Start: 06-18-2025 End: 06-18-2025 Patient encounter procedure 06/18/2025 12:15 PM EDT Office Visit [facility] [address] [place] [id number] Sweta Ch PAJuan JoseC [address] [place] [address] [facility] Start: 04-21-2025 Influenza vaccination Influenza Vaccine [facility] Start: 04-17-2025 Screening for malignant neoplasm of breast [facility] Start: 03-12-2025 End: 03-12-2025 Patient encounter procedure 03/12/2025 1:00 PM EDT Office Visit [facility] [address] [place] [id number] Sweta Ch PAJuan JoseC [address] [place] [address] [facility] Start: 02-28-2025 End: 02-28-2025 Admission to same day surgery center 02/28/2025 3:12 PM EDT - 02/28/2025 3:21 PM EDT Surgery [facility] [address] [place] [address] Zackery Miranda MD [address] [place] [address] INJECTION BLOCK NERVE STELLATE GANGLION NECK [55518 (CPT )] [facility] Comment on above: INJECTION BLOCK NERVE STELLATE GANGLION NECK [73360 (CPT )] Start: 02-28-2025 End: 02-28-2025 Njx anes stellate ganglion crv sympathetic INJECTION BLOCK NERVE STELLATE GANGLION NECK Reflex sympathetic dystrophy of right upper extremity 02/28/2025 3:12 PM EDT [facility] Start: 02-28-2025 Subsequent hospital visit by physician 02/28/2025 3:12 PM EDT Hospital Encounter [facility] [address] [place] [id number] Zackery Miranda MD [address] [place] [id number] [facility] Start: 02-26-2025 End: 02-26-2025 Patient encounter procedure 02/26/2025 11:15 AM EDT Office Visit [facility] [address] [place] [phone] Sweta Ch, PROMISE [address], [address] [place], [place] [id number] [facility] Start: 02-18-2025 End: 02-18-2025 Patient encounter procedure 02/18/2025 1:40 PM EDT Office Visit [facility] [address] [place] [address] Agusto Olmstead, PHOSPHORIC ACID OPERATOR [address] [place] [address] [facility] Start: 02-17-2025 Hemoglobin A1c measurement Diabetes: Hemoglobin A1C [facility] Start: 02-11-2025 Urine culture [facility] Start: 02-11-2025 Bacteria identified in Urine by Culture Urine Culture [facility] Start: 02-07-2025 End: 02-07-2025 Admission to same day surgery center 02/07/2025 12:30 PM EDT - 02/07/2025 12:39 PM EDT Surgery [facility] [address] [facility] [place] [address] Zackery Miranda MD [address] [place], [place] [phone] INJECTION BLOCK NERVE STELLATE GANGLION NECK [58510 (CPT )] [facility] Comment on above: INJECTION BLOCK NERVE STELLATE GANGLION NECK [66135 (CPT )] Start: 02-07-2025 End: 02-07-2025 Njx anes stellate ganglion crv sympathetic INJECTION BLOCK NERVE STELLATE GANGLION NECK Reflex sympathetic dystrophy of right upper extremity 02/07/2025 12:30 PM EDT [facility] Start: 02-07-2025 Subsequent hospital visit by physician 02/07/2025 12:30 PM EDT Hospital Encounter [facility] [address] [facility] [place] [phone] Zackery Miranda MD [address] [place], [place] [phone] [facility] Start: 01-31-2025 Creatinine measurement Serum Creatinine [facility] Start: 01-27-2025 End: 01-27-2025 Patient encounter procedure 01/27/2025 2:40 PM EDT Office Visit [facility] [address] [address] Agusto Olmstead, PHOSPHORIC ACID OPERATOR [address] [place] [address] Arrived [facility] Comment on above: Arrived Start: 01-27-2025 End: 01-27-2026 25-hydroxyvitamin D3 [Mass/volume] in Serum or Plasma Vitamin D 25 hydroxy Lab Routine Chronic kidney disease, stage 4 (severe) ([facility]/HCC) Vitamin D deficiency Expected: 01/27/2025 (Approximate), Expires: 01/27/2026 [facility] Comment on above: Expected: 01/27/2025 (Approximate), Expi res: 01/27/2026 Start: 01-27-2025 End: 01-27-2026 Bacteria identified in Urine by Culture Urine culture (clean catch) Microbiology Routine Urinary tract infection symptoms Expected: 01/27/2025 (Approximate), Expires: 01/27/2026 [facility] Work Phone: Comment on above: Expected: 01/27/2025 (Approximate), Expi res: 01/27/2026 Start: 01-27-2025 End: 01-27-2026 Basic metabolic 1998 panel - Serum or Plasma Basic metabolic panel Lab Routine Mixed hyperlipidemia ([facility]) Essential (primary) hypertension ([facility]) Type 2 diabetes mellitus with diabetic neuropathy, with long-term current use of insulin ([facility]) Chronic kidney disease, stage 4 (severe) ([facility]) 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 Type 2 diabetes mellitus with hyperglycemia, with long-term current use of insulin ([facility]) Vitamin D deficiency Expected: 01/27/2025 (Approximate), Expires: 01/27/2026 [facility] Comment on above: Expected: 01/27/2025 (Approximate), Expi res: 01/27/2026 Start: 01-27-2025 End: 01-27-2026 CBC W Auto Differential panel - Blood CBC and differential Lab Routine Chronic kidney disease, stage 4 (severe) ([facility]) Type 2 diabetes mellitus with hyperglycemia, with long-term current use of insulin ([facility]) Fatigue, unspecified type Expected: 01/27/2025 (Approximate), Expires: 01/27/2026 [facility] Comment on above: Expected: 01/27/2025 (Approximate), Expi res: 01/27/2026 Start: 01-27-2025 End: 01-27-2026 Cobalamin (Vitamin B12) [Mass/volume] in Serum or Plasma Vitamin B12 Lab Routine Fatigue, unspecified type Expected: 01/27/2025 (Approximate), Expires: 01/27/2026 [facility] Comment on above: Expected: 01/27/2025 (Approximate), Expi res: 01/27/2026 Start: 01-27-2025 End: 01-27-2026 Ferritin [Mass/volume] in Serum or Plasma Ferritin Lab Routine Fatigue, unspecified type Expected: 01/27/2025 (Approximate), Expires: 01/27/2026 [facility] Comment on above: Expected: 01/27/2025 (Approximate), Expi res: 01/27/2026 Start: 01-27-2025 End: 01-27-2026 Folate [Mass/volume] in Serum or Plasma Folate Lab Routine Fatigue, unspecified type Expected: 01/27/2025 (Approximate), Expires: 01/27/2026 [facility] Comment on above: Expected: 01/27/2025 (Approximate), Expi res: 01/27/2026 Start: 01-27-2025 End: 01-27-2026 Hepatic function 2000 panel - Serum or Plasma Hepatic function panel Lab Routine Essential (primary) hypertension (CMS/HCC) Chronic kidney disease, stage 4 (severe) (CMS/HCC) Fatigue, unspecified type Expected: 01/27/2025 (Approximate), Expires: 01/27/2026 [facility] Comment on above: Expected: 01/27/2025 (Approximate), Expi res: 01/27/2026 Start: 01-27-2025 End: 01-27-2026 Iron + transferrin + TIBC Iron + transferrin + TIBC Lab Routine Fatigue, unspecified type Expected: 01/27/2025 (Approximate), Expires: 01/27/2026 [facility] Comment on above: Expected: 01/27/2025 (Approximate), Expi res: 01/27/2026 Start: 01-27-2025 End: 01-27-2026 Magnesium [Mass/volume] in Serum or Plasma Magnesium Lab Routine Chronic kidney disease, stage 4 (severe) ([facility]) Expected: 01/27/2025 (Approximate), Expires: 01/27/2026 [facility] Comment on above: Expected: 01/27/2025 (Approximate), Expi res: 01/27/2026 Start: 01-27-2025 End: 01-27-2026 Phosphate [Moles/volume] in Serum or Plasma Phosphorus Lab Routine Chronic kidney disease, stage 4 (severe) ([facility]) Expected: 01/27/2025 (Approximate), Expires: 01/27/2026 [facility] Comment on above: Expected: 01/27/2025 (Approximate), Expi res: 01/27/2026 Start: 01-27-2025 End: 01-27-2026 Thyrotropin [Units/volume] in Serum or Plasma TSH Lab Routine Fatigue, unspecified type Expected: 01/27/2025 (Approximate), Expires: 01/27/2026 [facility] Comment on above: Expected: 01/27/2025 (Approximate), Expi res: 01/27/2026 Start: 01-27-2025 End: 01-27-2026 Thyroxine (T4) free [Mass/volume] in Serum or Plasma T4, free Lab Routine Fatigue, unspecified type Expected: 01/27/2025 (Approximate), Expires: 01/27/2026 [facility] Comment on above: Expected: 01/27/2025 (Approximate), Expi res: 01/27/2026 Start: 01-21-2025 End: 01-21-2025 Patient encounter procedure 01/21/2025 2:40 PM EDT Office Visit [facility] [address] [place] [address] Agusto Olmstead NP [address] [place] [address] [facility] Start: 01-10-2025 Pneumococcal Vaccine: 65+ Years (1 of 2 - PCV) Pneumococcal Vaccine: 65+ Years (1 of 2 - PCV) [facility] Comment on above: Postponed from 1964 (Patient Refus ed) Postponed from 05/12 (Patient Refused) Start: 01-08-2025 End: 01-08-2025 Patient encounter procedure 01/08/2025 12:15 PM EDT Office Visit [facility] [address] [place] [address] Sweta Ch, PAJaya [address] [place] [address] [facility] Start: 12-12-2024 End: 12-12-2024 Patient encounter procedure 12/12/2024 3:20 PM EDT Office Visit [facility] [address] [place] [address] Agusto Olmstead, PHOSPHORIC ACID OPERATOR [address] [place] [address] [facility] Start: 12-05-2024 End: 12-05-2024 Patient encounter procedure 12/05/2024 1:00 PM EDT Office Visit [facility] [address] [facility] [address] [place] [phone] Cory Angeles, OLIVIA [address] [facility] [address] [place] [address] [facility] Start: 12-04-2024 End: 12-04-2025 Basic metabolic 1998 panel - Serum or Plasma Basic metabolic panel Lab Routine Chronic kidney disease, stage 4 (severe) (CMS/HCC) Expected: 12/04/2024 (Approximate), Expires: 12/04/2025 [facility] Work Phone: Comment on above: Expected: 12/04/2024 (Approximate), Expi res: 12/04/2025 Start: 12-04-2024 End: 12-04-2025 CBC W Auto Differential panel - Blood CBC and differential Lab Routine Chronic kidney disease, stage 4 (severe) (CMS/HCC) Expected: 12/04/2024 (Approximate), Expires: 12/04/2025 [facility] Comment on above: Expected: 12/04/2024 (Approximate), Expi res: 12/04/2025 Start: 12-04-2024 End: 12-04-2024 Patient encounter procedure 12/04/2024 11:00 AM EDT Office Visit [facility] [address] [place] [address] Agusto Olmstead NP [address] [place] [address] Chronic kidney disease, stage 4 (severe) (CMS/HCC) (Primary Dx); Essential (primary) hypertension (CMS/HCC) [facility] Comment on above: Chronic kidney disease, stage 4 (severe) (CMS/HCC) (Primary Dx); Essential (primary) hypertension (CMS/HCC) Start: 11-26-2024 [facility] Start: 11-24-2024 Comprehensive metabolic 2000 panel - Serum or Plasma [facility] Start: 11-24-2024 End: 11-24-2024 [facility] Start: 11-23-2024 [facility] Start: 11-23-2024 Referral to ncqa specialist [facility] Start: 11-23-2024 Physical therapy procedure [facility] Start: 11-23-2024 Referral to occupational therapist [facility] Start: 11-23-2024 Referral to dental insurance biller [facility] Start: 11-23-2024 Referral to binding bench worker [facility] Start: 11-23-2024 X-ray of right foot XR foot RT 2V [facility] Start: 11-23-2024 XR Foot - right 2 Views [facility] Start: 11-23-2024 Hospital admission [facility] Start: 11-23-2024 Urine culture [facility] Start: 11-23-2024 Bacteria identified in Urine by Culture Urine Culture [facility] Start: 11-23-2024 Excision of Right Foot Subcutaneous Tissue and Fascia, Open Approach Excision of Right Foot Subcutaneous Tissue and Fascia, Open Approach [facility] Start: 11-18-2024 End: 11-18-2025 Basic metabolic 1998 panel - Serum or Plasma Basic metabolic panel Lab Routine Essential (primary) hypertension ([facility]/HCC) Chronic kidney disease, stage 4 (severe) ([facility]) Type 2 diabetes mellitus with hyperglycemia, with long-term current use of insulin ([facility]) Expected: 11/18/2024 (Approximate), Expires: 11/18/2025 [facility] Work Phone: Comment on above: Expected: 11/18/2024 (Approximate), Expi res: 11/18/2025 Start: 11-18-2024 End: 11-18-2025 CBC W Auto Differential panel - Blood CBC and differential Lab Routine Chronic kidney disease, stage 4 (severe) (CMS/HCC) Expected: 11/18/2024 (Approximate), Expires: 11/18/2025 [facility] Comment on above: Expected: 11/18/2024 (Approximate), Expi res: 11/18/2025 Start: 11-18-2024 End: 11-18-2025 Iron and Iron binding capacity panel - Serum or Plasma Iron level Lab Routine Chronic kidney disease, stage 4 (severe) (CMS/HCC) Expected: 11/18/2024 (Approximate), Expires: 11/18/2025 [facility] Comment on above: Expected: 11/18/2024 (Approximate), Expi res: 11/18/2025 Start: 11-18-2024 End: 11-18-2024 Patient encounter procedure [facility] Comment on above: RSD (reflex sympathetic dystrophy) (Prim hussain Dx); Type 2 diabetes mellitus with diabetic neuropathy, with long-term current use of insulin ([facility]); Essential (primary) hypertension (CMS/HCC); Chronic kidney disease, stage 4 (severe) (CMS/HCC) ; Type 2 diabetes mellitus with hyperglycemia, with long-term current use of insulin ([facility]/HCC); care home (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 ([facility]); Non compliance w medication regimen; Encounter for subsequent annual wellness visit (AWV) in Medicare patient Start: 11-11-2024 End: 11-11-2025 XR Foot - right 3 Views XR foot 3+ views right Imaging Routine Right foot pain Expected: 11/11/2024 (Approximate), Expires: 11/11/2025 [facility] Work Phone: Comment on above: Expected: 11/11/2024 (Approximate), Expi res: 11/11/2025 Start: 11-06-2024 Hemoglobin A1c measurement Diabetes: Hemoglobin A1C [facility] Start: 11-06-2024 End: 11-06-2024 Patient encounter procedure 11/06/2024 10:30 AM EDT Office Visit [facility] [address] [place] [address] Agusto Olmstead, PHOSPHORIC ACID OPERATOR [address] [place] [address] [facility] Start: 10-24-2024 End: 10-24-2024 Patient encounter procedure 10/24/2024 2:20 PM EST Office Visit [facility] [address] [place] [address] Agusto Olmstead, PHOSPHORIC ACID OPERATOR [address] [place] [address] Type 2 diabetes mellitus with diabetic neuropathy, with long-term current use of insulin ([facility]) (Primary Dx); Essential (primary) hypertension (CMS/HCC); Chronic kidney disease, stage 4 (severe) (CMS/HCC); Type 2 diabetes mellitus with hyperglycemia, with long-term current use of insulin ([facility]/HCC) [facility] Comment on above: Type 2 diabetes mellitus with diabetic n europathy, with long-term current use of insulin ([facility]) (Primary Dx); Essential (primary) hypertension (CMS/HCC); Chronic kidney disease, stage 4 (severe) (CMS/HCC); Type 2 diabetes mellitus with hyperglycemia, with long-term current use of insulin ([facility]/HCC) Start: 10-23-2024 End: 10-23-2024 Patient encounter procedure 10/23/2024 2:00 PM EST Office Visit [facility] [address] [place] [address] Agusto Olmstead NP [address] [place] [address] [facility] Start: 10-23-2024 Urine screening for protein Diabetes: Urine Protein Screening [facility] Start: 10-11-2024 Medicare Annual Wellness (AWV) Medicare Annual Wellness (AWV) [facility] Start: 10-09-2024 End: 10-09-2024 Patient encounter procedure 10/09/2024 11:15 AM EST Office Visit [facility] [address] [place] [address] Sweta Ch PA-C [address] [place] [address] [facility] Start: 09-15-2024 [facility] Start: 09-14-2024 [facility] Start: 09-13-2024 [facility] Start: 09-12-2024 [facility] Start: 09-11-2024 End: 09-11-2024 Patient encounter procedure [facility] Comment on above: Malignant neoplasm of cervix uteri, unsp ecified (CMS/[facility]) (Primary Dx); Rheumatoid arthritis, unspecified (CMS/HCC); Type 2 diabetes mellitus with diabetic neuropathy, with long-term current use of insulin (CMS/HCC); Essential (primary) hypertension (CMS/HCC); Chronic kidney disease, stage 4 (severe) (CMS/HCC); Neurogenic bladder; Type 2 diabetes mellitus with hyperglycemia, with long-term current use of insulin (CMS/HCC); Immunodeficiency due to conditions classified elsewhere (CMS/HCC); care home (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 (CMS/HCC) Start: 09-11-2024 [facility] Start: 09-10-2024 [facility] Start: 09-09-2024 Comprehensive metabolic 1999 panel - Serum or Plasma [facility] Start: 09-09-2024 [facility] Start: 09-08-2024 Comprehensive metabolic 1999 panel - Serum or Plasma [facility] Start: 09-08-2024 End: 09-08-2024 [facility] Start: 09-07-2024 Referral to urologist [facility] Start: 09-07-2024 Comprehensive metabolic 1999 panel - Serum or Plasma [facility] Start: 09-07-2024 [facility] Start: 09-06-2024 [facility] Start: 09-05-2024 Hospital admission [facility] Start: 09-05-2024 Referral to binding bench worker [facility] Start: 09-05-2024 [facility] Start: 09-05-2024 Urine culture [facility] Start: 09-05-2024 Bacteria identified in Urine by Culture Urine Culture [facility] Start: 09-03-2024 Complete blood count Hemoglobin/Hematocrit [facility] Start: 09-03-2024 Creatinine measurement Serum Creatinine [facility] Start: 08-27-2024 End: 08-27-2024 Patient encounter procedure 08/27/2024 2:20 PM EST Office Visit [facility] [address] [place] [address] Agusto Olmstead NP [address] [place] [phone] Arrived [facility] Comment on above: Arrived Start: 08-27-2024 End: 08-27-2025 Basic metabolic 1997 panel - Serum or Plasma Basic metabolic panel Lab Routine Type 2 diabetes mellitus with diabetic neuropathy, with long-term current use of insulin ([facility]) Expected: 08/27/2024 (Approximate), Expires: 08/27/2025 [facility] Work Phone: Comment on above: Expected: 08/27/2024 (Approximate), Expi res: 08/27/2025 Start: 08-27-2024 End: 08-27-2024 Patient encounter procedure 08/27/2024 11:30 AM EST Office Visit [facility] [address] [place] [address] Agusto Olmstead, PHOSPHORIC ACID OPERATOR [address] [place] [address] [facility] Start: 06-24-2024 End: 06-24-2024 Patient encounter procedure 06/24/2024 11:00 AM EST Office Visit [facility] [address] [place] [address] Agusto Olmstead, PHOSPHORIC ACID OPERATOR [address] [place] [phone] [facility] Start: 06-23-2024 Hemoglobin/Hematocrit Hemoglobin/Hematocrit [facility] Start: 06-23-2024 Serum Creatinine Serum Creatinine [facility] Start: 06-11-2024 End: 06-11-2025 Basic metabolic 1998 panel - Serum or Plasma Basic metabolic panel Lab Routine Type 2 diabetes mellitus with hyperglycemia, with long-term current use of insulin ([facility]) Expected: 06/11/2024 (Approximate), Expires: 06/11/2025 [facility] Work Phone: Comment on above: Expected: 06/11/2024 (Approximate), Expi res: 06/11/2025 Start: 06-11-2024 End: 06-11-2025 Hemoglobin A1c/Hemoglobin.total in Blood Hemoglobin A1c Lab Routine Type 2 diabetes mellitus with hyperglycemia, with long-term current use of insulin ([facility]/HCC) Expected: 06/11/2024 (Approximate), Expires: 06/11/2025 [facility] Comment on above: Expected: 06/11/2024 (Approximate), Expi res: 06/11/2025 Start: 06-11-2024 End: 06-11-2024 Patient encounter procedure 06/11/2024 11:30 AM EDT Office Visit [facility] [address] [place] [address] Agusto Olmstead NP [address] [place] [address] Type 2 diabetes mellitus with diabetic chronic kidney disease (CMS/HCC); Chronic kidney disease, stage 3b (HCC) (CMS/HCC); Hyperparathyroidism, unspecified ([facility]/HCC); Malignant neoplasm of cervix uteri, unspecified ([facility]/HCC); Rheumatoid arthritis, unspecified ([facility]/HCC) [facility] Comment on above: Type 2 diabetes mellitus with diabetic c hronic kidney disease (CMS/HCC); Chronic kidney disease, stage 3b (HCC) (CMS/HCC); Hyperparathyroidism, unspecified (CMS/HCC); Malignant neoplasm of cervix uteri, unspecified ([facility]/HCC); Rheumatoid arthritis, unspecified ([facility]/HCC) Start: 06-06-2024 Hemoglobin/Hematocrit Hemoglobin/Hematocrit [facility] Start: 06-06-2024 Serum Creatinine Serum Creatinine [facility] Start: 06-04-2024 Hemoglobin A1c measurement Diabetes: Hemoglobin A1C [facility] Start: 05-28-2024 End: 05-28-2024 Patient encounter procedure 05/28/2024 1:20 PM EDT Office Visit [facility] [address] [place] [address] Agusto Olmstead NP [address] [place] [address] [facility] Start: 05-10-2024 End: 05-10-2024 ambulatory 05/10/2024 11:30 AM EDT [facility] [address] [address] Juanito Barnard MD [address] [place] [address] add on per staff message Urology Comment on above: add on per staff message Start: 05-01-2024 End: 07-31-2024 Basic metabolic 2000 panel - Serum or Plasma BASIC METABOLIC PANEL Lab Routine Stage 3b chronic kidney disease (HCC) Expected: 05/01/2024, Expires: 07/31/2024 [facility] Work Phone: Comment on above: Expected: 05/01/2024, Expires: Start: 05-01-2024 End: 07-31-2024 CYSTATIN C CYSTATIN C Lab Routine Stage 3b chronic kidney disease (HCC) Expected: 05/01/2024, Expires: 07/31/2024 [facility] Comment on above: Expected: 05/01/2024, Expires: Start: 05-01-2024 End: 05-01-2024 Patient encounter procedure 05/01/2024 10:00 AM EDT Office Visit Urology [address] [address] Jaunito Barnard MD [address] [place] [address] discuss bladder augment per Dr. [facility] Comment on above: discuss bladder augment per Dr. Espinosa Start: 04-21-2024 Covid-19 Vaccine ( season) Covid-19 Vaccine ( season) [facility] Start: 04-21-2024 Covid-19 Vaccine ( season) Covid-19 Vaccine ( season) [facility] Start: 04-21-2024 Influenza vaccination [facility] Start: 04-16-2024 End: 04-16-2024 Patient encounter procedure 04/16/2024 2:20 PM EDT Office Visit [facility] [address] [place] [phone] Agusto [place]stead NP [address] [place] [id number] Type 2 diabetes mellitus with diabetic chronic kidney disease (HCC) (CMS/HCC); Chronic kidney disease, stage 3b (HCC) (CMS/HCC); Hyperparathyroidism, unspecified (CMS/HCC); Rheumatoid arthritis, unspecified (CMS/HCC); Malignant neoplasm of cervix uteri, unspecified (CMS/HCC) [facility] Comment on above: Type 2 diabetes mellitus with diabetic c hronic kidney disease (HCC) (CMS/HCC); Chronic kidney disease, stage 3b (HCC) (CMS/HCC); Hyperparathyroidism, unspecified (CMS/HCC); Rheumatoid arthritis, unspecified (CMS/HCC); Malignant neoplasm of cervix uteri, unspecified (CMS/HCC) Start: 04-16-2024 End: 04-16-2025 XR Chest 2 Views XR chest 2 views Imaging Routine Chronic cough Expected: 04/16/2024 (Approximate), Expires: 04/16/2025 [facility] Healthcare Work Phone: Comment on above: Expected: 04/16/2024 (Approximate), Expi res: 04/16/2025 Start: 04-09-2024 End: 04-09-2024 Follow-up encounter 04/09/2024 9:30 AM EDT [facility] [address] [place] [address] Carmenza Espinosa MD [address] [place] [address] 1 week follow up per dr. espinosa Urology Comment on above: 1 week follow up per dr. espinosa Start: 04-04-2024 Hepatitis B screening Urine Albumin:Creatinine Ratio [facility] Start: 03-29-2024 End: 03-29-2024 Nursing evaluation of patient and report 03/29/2024 3:00 PM EDT Nurse Visit Urology [address] [address] [employer] [address] [place] [address] [R33.9] Retention of urine Urology Comment on above: [R33.9] Retention of urine Start: 03-26-2024 End: 03-26-2024 Patient encounter procedure 03/26/2024 11:00 AM EDT Office Visit Urology [address] [place] [address] Carmenza Espinosa MD [address] [place] [address] Ballard Urology Comment on above: Follow up per Dr. 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 encounter procedure [employer] [facility]OL [facility] Comment on above: Continuous leakage of Urine Start: 01-22-2024 DIABETES SCREEN DIABETES SCREEN [facility] Start: 01-19-2024 End: 04-19-2024 CREATININE BLD CREATININE BLD Lab Routine Other hydronephrosis Expected: 01/19/2024 (Approximate), Expires: 04/19/2024 [facility] Comment on above: Expected: 01/19/2024 (Approximate), Expi res: 04/19/2024 Start: 01-19-2024 End: 02-10-2025 CT Kidney WO and W contrast IV CT UROGRAM WO/W IVCON Radiology Routine Other hydronephrosis Expected: 01/19/2024 (Approximate), Expires: 02/10/2025 [facility] Work Phone: Comment on above: Expected: 01/19/2024 (Approximate), Expi res: 02/10/2025 Start: 12-29-2023 Screening for malignant neoplasm of breast Mammogram [facility] Start: 10-05-2023 End: 01-04-2024 Basic metabolic 2000 panel - Serum or Plasma BASIC METABOLIC PNL Lab Routine Kidney cyst, acquired Expected: 10/05/2023 (Approximate), Expires: 01/04/2024 [facility] Work Phone: Comment on above: Expected: 10/05/2023 (Approximate), Expi res: 01/04/2024 Start: 10-05-2023 End: 08-03-2024 US KIDNEY/BLADDER US KIDNEY/BLADDER Radiology Routine Kidney cyst, acquired Expected: 10/05/2023 (Approximate), Expires: 08/03/2024 [facility] Work Phone: Comment on above: Expected: 10/05/2023 (Approximate), Expi res: 08/03/2024 Start: 09-06-2023 Hemoglobin A1c measurement HbA1C [facility] Start: 09-06-2023 Hemoglobin A1c/Hemoglobin.total in Blood HbA1C [facility] Start: 08-21-2023 Advance Directive Discussion Advance Directive Discussion [facility] Start: 08-21-2023 Behavioral Health Screening Behavioral Health Screening [facility] Start: 08-21-2023 Depression Assessment Depression Assessment [facility] Start: 2023 Advance Directive Discussion Advance Directive Discussion [facility] Start: 2023 Bone Density Screening Bone Density Screening [facility] Start: 2023 Fall Risk Screening Fall Risk Screening [facility] Start: 2023 Screening for osteoporosis Bone Density Screening [facility] Start: 04-21-2023 Covid-19 Vaccine ( season) Covid-19 Vaccine ( season) [facility] Start: 04-21-2023 Covid-19 Vaccine ( season) Covid-19 Vaccine ( season) [facility] Start: 04-21-2023 Influenza vaccination Influenza Vaccine (#1) [facility] Start: 08-21-2022 Depression Assessment Depression Assessment [facility] Start: 04-21-2021 Influenza vaccination INFLUENZA (Season Ended) [facility] Start: 2018 Hepatitis B Vaccine (1 of 3 - Risk 3-dose series) Hepatitis B Vaccine (1 of 3 - Risk 3-dose series) [facility] Start: 2018 RSV Vaccine (1 - 1-dose 60+ series) RSV Vaccine (1 - 1-dose 60+ series) [facility] Start: 2018 RSV Vaccine (1 - Risk 60-74 years 1-dose series) RSV Vaccine (1 - Risk 60-74 years 1-dose series) [facility] Start: 2008 Administration of varicella zoster vaccine Zoster (Shingles) Vaccine (1 of 2) [facility] Start: 2008 Screening for malignant neoplasm of colon [facility] Start: 2008 SHINGRIX VACCINE (1 of 2) SHINGRIX VACCINE (1 of 2) [facility] Start: 2003 Cologuard (FIT-DNA) Cologuard (FIT-DNA) [facility] Start: 2003 Colonoscopy Colonoscopy [facility] Start: 2003 Colorectal Cancer Screening Colorectal Cancer Screening [facility] Start: [address] Colonography [facility] Start: 2003 Fecal Occult Blood Fecal Occult Blood [facility] Start: 2003 LIPID SCREEN LIPID SCREEN [facility] Start: 2003 Screening for malignant neoplasm of colon [facility] Start: 2003 Sigmoidoscopy Sigmoidoscopy [facility] Start: 1998 Mammography [facility] Start: 1998 Screening for malignant neoplasm of breast Mammogram Screening [facility] Start: 1988 HPV TESTING HPV TESTING [facility] Start: 1979 PAP TESTING PAP TESTING [facility] Start: 1977 DTaP,Tdap and Td Vaccines (1 - Tdap) DTaP,Tdap and Td Vaccines (1 - Tdap) [facility] Start: 1977 Pneumococcal Vaccine: 65+ Years (1 of 2 - PCV) Pneumococcal Vaccine: 65+ Years (1 of 2 - PCV) [facility] Start: 1977 Urine microalbumin profile [facility] Start: 1976 Adult BMI Follow Up Plan Adult BMI Follow Up Plan [facility] Start: 1976 Annual PCP Team Chronic Disease Visit Annual PCP Team Chronic Disease Visit [facility] Start: 1976 Anxiety Screening Anxiety Screening [facility] Start: 1976 BP Controlled (<130/80) BP Controlled (<130/80) [facility] Start: 1976 Depression Screening Depression Screening [facility] Start: 1976 Hepatitis B surface antibody level LDL Cholesterol [facility] Start: 1976 HEPATITIS C SCREENING HEPATITIS C SCREENING [facility] Start: 1976 Hepatitis C screening Hepatitis C Screening [facility] Start: 1976 HIV SCREENING HIV SCREENING [facility] Start: 1976 HIV screening HIV Screening [facility] Start: 1976 Spirometry Spirometry [facility] Start: 1970 Adult depression screening assessment DEPRESSION SCREENING [facility] Start: 1970 COVID-19 VACCINE (1) COVID-19 VACCINE (1) [facility] Start: 1968 3 comp foot exam completed Diabetic Foot Exam [facility] Start: 1968 Diabetic foot examination Diabetic Foot Exam [facility] Start: 1968 Glaucoma screening [facility] Start: 1968 Hepatitis B screening Urine Albumin:Creatinine Ratio [facility] Start: 1968 Hepatitis C antibody, confirmatory test Dilated Retinal Exam [facility] Start: 1964 Pneumococcal Vaccine: 65+ (1 - PCV) Pneumococcal Vaccine: 65+ (1 - PCV) [facility] Start: 1964 Pneumococcal Vaccine: 65+ (1 of 2 - PCV) Pneumococcal Vaccine: 65+ (1 of 2 - PCV) [facility] Start: 1958 Screening for malignant neoplasm of colon [facility] Albumin/Globulin ratio [facility] Anion gap measurement [facility] Anion gap measurement [facility] Bacteria identified in Urine by Culture URINE CULTURE, ROUTINE Lab Routine 09/04/2024 6:30 PM EST [facility] Basophils [#/volume] in Blood by Automated count [facility] Basophils/100 leukoc ytes in Blood by Automated count [facility] Controlled Substance Monitoring, U Controlled Substance Monitoring, U Lab Routine Complex regional pain syndrome type 1 of right upper extremity 03/12/2025 1:43 PM EDT [employer] [facility] Eosinophils/100 leukocytes in Blood by Automated count [facility] Erythrocyte distribu tion width [Ratio] by Automated count [facility] Erythrocytes [#/volu me] in Blood [facility] FLUROURODYNAMICS WITH EMG FLUROU RODYNAMICS WITH EMG Procedures Routine Retention of urine BURKE (stress urinary incontinence, female) Ordered: 03/26/2024 [facility] Work Phone: Comment on above: Ordered: 03/26/2024 Gabapentin, Urine Gabapentin, Ur ine Lab Routine Complex regional pain syndrome type 1 of right upper extremity 03/12/2025 1:43 PM EDT [facility] Globulin [Mass/volum e] in Serum [facility] Hematocrit [Volume Fraction] of Blood [facility] Hemoglobin [Mass/vol ume] in Blood [facility] Leukocytes [#/volume ] corrected for nucleated erythrocytes in Blood by Automated coun [facility] Leukocytes [#/volume ] in Blood [facility] Lymphocytes [#/volum e] in Blood by Automated count [facility] Lymphocytes/100 leukocytes in Blood by Automated count [facility] End: 03-12-2026 LOONEY GENERIC ORDER LOONEY GENERIC ORDER Lab Routine Complex regional pain syndrome type 1 of right upper extremity 1 Occurrences starting 03/12/2025 until 03/12/2026 [facility] Work Phone: Comment on above: 1 Occurrences starting 03/12/2025 until 03/12/2026 LOONEY GENERIC ORDER LOONEY GENERIC ORDER Lab Routine Complex regional pain syndrome type 1 of right upper extremity 03/12/2025 1:43 PM EDT [facility] MCH [Entitic mass] b y Automated count [facility] MCHC [Mass/volume] b y Automated count [facility] MCV [Entitic volume] by Automated count [facility] Monocytes [#/volume] in Blood by Automated count [facility] Monocytes/100 leukoc ytes in Blood by Automated count [facility] Neutrophils [#/volum e] in Blood by Automated count [facility] Neutrophils/100 leukocytes in Blood by Automated count [facility] Njx anes stellate ganglion crv sympathetic INJECTION BLOCK NERVE STELLATE GANGLION NECK Reflex sympathetic dystrophy of right upper extremity [facility] Nucleated erythrocyt es [Presence] in Blood by Automated count [facility] Patient Education Know your Meds [facility] Work Phone: Patient referral [facility] Work Phone: Platelet mean volume [Entitic volume] in Blood by Automated count [facility] Platelets [#/volume] in Blood [facility] Renal function 2000 panel - Serum or Plasma [facility] Renal function 1999 panel - Serum or Plasma [facility] Renal function 2000 panel - Serum or Plasma [facility] Immunizations Immunization Date Immunization Notes Care Provider Lukas pacheco 06-23-2022 tuberculin skin test ; purified protein derivative solution, intradermal Agusto Olmstead PHOSPHORIC ACID OPERATOR Work Phone: [facility] 06-16-2022 tuberculin skin test ; purified protein derivative solution, intradermal Agusto Zapatamundo PHOSPHORIC ACID OPERATOR Work Phone: [facility] 04-02-2021 SARS-CoV-2 (COVID-19 ) mRNA-1273 vaccine HEIDY ARNOLD [facility] 03-02-2021 Moderna SARS-CoV-2 Vaccination Agusto Zapatamundo PHOSPHORIC ACID OPERATOR Work Phone: [facility] 12-07-2020 SARS-CoV-2 (COVID-19 ) mRNA-1273 vaccine HEIDY ARNOLD [facility] 06-03-2016 influenza virus vaccine, unspecified formulation HEIDY ARNOLD [facility] 06-03-2016 influenza, seasonal, injectable, preservative free Drew Esqueda Research Coordinator [facility] Payers Date Payer Category Payer Self-pay 2023 Medicare O HUMAN MEDICARE [id number] 2023 Medicare (Managed Care) [facility] [id number] 2023 Private Health Insurance [id number] 2022 Medicare [id number] 2022 Medicare [id number] .[id number] 2006 Medicare MEDICARE MEDICAR E A [id number] 2006-Present [place], [place] Medicare [id number] 2003 Worker's Comp Other Managed Care [facility] [id number] .[id number] 2003 Unknown [id number] 1959 Medicare [id number] 2.16.840.1.620166.19 1959 Medicare [id number] 1959 Unknown [id number] 1959 Unknown [id number] 1958 Unknown [id number] 2.16.840.1.361928.3.579.2 .593 1958 Unknown [id number] 2.16.840.1.612015.3.579.2 .593 1958 Unknown [id number] 2.16.840.1.403309.3.579.2 .593 1958 Unknown [id number] 2.16.840.1.243899.3.579.2 .593 1958 Unknown [id number] 2.16.840.1.390892.3.579.2 .593 1958 Unknown [id number] 2.16.840.1.176058.3.579.2 .593 1958 Unknown [id number] 2.16.840.1.896148.3.579.2 .593 1958 Unknown [id number] 2.16.840.1.958968.3.579.2 .593 1958 Unknown [id number] 2.16.840.1.424435.3.579.2 .593 1958 Unknown [id number] 2.16.840.1.840177.3.579.2 .593 1958 Unknown [id number] 2.16.840.1.531432.3.579.2 .593 1958 Unknown [id number] 2.16.840.1.248012.3.579.2 .593 1958 Unknown [id number] 2.16.840.1.534886.3.579.2 .593 1958 Unknown [id number] 2.16.840.1.140920.3.579.2 .593 1958 Unknown [id number] 2.16.840.1.309353.3.579.2 .593 1958 Unknown [id number] 2.16.840.1.929334.3.579.2 .593 1958 Unknown [id number] 2.16.840.1.576642.3.579.2 .593 1958 Unknown [id number] 2.16.840.1.788109.3.579.2 .593 1958 Unknown [id number] 2.16.840.1.499580.3.579.2 .593 1958 Unknown [id number] 2.16.840.1.823402.3.579.2 .593 1958 Unknown [id number] 2.16.840.1.051331.3.579.2 .593 1958 Unknown [id number] 2.16.840.1.471234.3.579.2 .593 1958 Unknown [id number] 2.16.840.1.318596.3.579.2 .593 1958 Unknown [id number] 2.16.840.1.060523.3.579.2 .593 1958 Unknown [id number] 2.16.840.1.836409.3.579.2 .593 1958 Unknown [id number] 2.16.840.1.161934.3.579.2 .593 1958 Unknown [id number] 2.16.840.1.315028.3.579.2 .593 1958 Unknown [id number] 2.16.840.1.217033.3.579.2 .593 1958 Unknown [id number] 2.16.840.1.420012.3.579.2 .593 1958 Unknown [id number] 2.16.840.1.110997.3.579.2 .593 1958 Unknown [id number] 2.16.840.1.971783.3.579.2 .593 1958 Unknown [id number] 2.16.840.1.351119.3.579.2 .727 1958 Unknown [id number] 2.16.840.1.209361.3.579.2 .727 1958 Unknown [id number] 2.16.840.1.009425.3.579.2 .727 1958 Unknown [id number] 2.16.840.1.002380.3.579.2 .72 1958 Unknown [id number] 2.16.840.1.429975.3.579.2 .72 1958 Unknown [id number] 2.16.840.1.909658.3.579.2 .72 1958 Unknown [id number] 2.16.840.1.088262.3.579.2 .72 1958 Unknown [id number] 2.16.840.1.146279.3.579.2 .1958 Unknown [id number] 2.16.840.1.646285.3.579.2 .1958 Unknown [id number] 2.16.840.1.282382.3.579.2 .1958 Unknown [id number] 2.16.840.1.576215.3.579.2 .1958 Unknown [id number] 2.16.840.1.760985.3.579.2 .1958 Unknown [id number] 2.16.840.1.772617.3.579.2 .1958 Unknown [id number] 2.16.840.1.318343.3.579.2 .72 1958 Unknown [id number] 2.16.840.1.915105.3.579.2 .72 1958 Unknown [id number] 2.16.840.1.901223.3.579.2 .1286 1958 Unknown [id number] 2.16.840.1.206172.3.579.2 .1259 1958 Unknown [id number] 2.16.840.1.859005.3.579.2 .125 1958 Unknown [id number] 2.16.840.1.250401.3.579.2 .1258 1958 Unknown [id number] 2.16.840.1.736070.3.579.2 .1258 1958 Unknown [id number] 2.16.840.1.803141.3.579.2 .1258 1958 Unknown [id number] 2.16.840.1.216055.3.579.2 .1258 1958 Unknown [id number] 2.16.840.1.442838.3.579.2 .1258 1958 Unknown [id number] 2.16.840.1.151095.3.579.2 .1258 1958 Unknown [id number] 2.16840.1.120502.3.579.2 .1258 1958 Unknown [id number] 2.16.840.1.770814.3.579.2 .1285 1958 Unknown [id number] 2.16840.1.092742.3.579.2 .1285 1958 Unknown [id number] 2.16840.1.118972.3.579.2 .1285 1958 Unknown [id number] 2.16840.1.870348.3.579.2 .1285 1958 Unknown [id number] 2.16.840.1.039892.3.579.2 .1285 1958 Unknown [id number] 2.16840.1.587776.3.579.2 .1285 1958 Unknown [id number] 2.16.840.1.745344.3.579.2 .1286 Medicare Medicare [id number] Unknown [facility] [id number] Unknown [id number] 2.16.840.1.203078.3.579.2 .531 Unknown [id number] 2.16.840.1.905503.3.579.2 .531 Unknown [id number] 2.16.840.1.397137.3.579.2 .531 Social History Date Type Detail Facility Start: 01-17-2021 End: 03-17-2025 Tobacco smoking status NHIS Never smoker [facility] Start: 01-17-2021 End: 07-27-2022 Tobacco use and exposure Never used [facility] Start: 01-17-2021 End: 04-09-2024 Alcohol intake Current drinker of alcohol (finding) [facility] Start: 01-17-2021 History SDOH Alcohol Frequency 1 [facility] Start: 01-17-2021 Alcohol Comment socially [facility] Start: 1960 Sex Assigned At Not on file [facility] Exposure to SARS-CoV -2 (event) Not sure [facility] Tobacco smoking status Never [facility] Start: 09-04-2020 End: 06-06-2023 Sex Assigned At Female [facility] Start: 09-04-2020 End: 06-06-2023 History of Social function [facility] Start: 06-06-2023 Alcohol Comment rarely--holida y or special occ [facility] (I/We) worried wheth er (my/our) food would run out before (I/we) got money to buy more. DK or Refused [facility] Start: 1960 Sex Assigned At Female F [facility] Start: 04-16-2024 End: 01-27-2025 Alcoholic beverage [...] 1cup daily [facility] Start: 07-03-2024 End: 02-28-2025 Alcoholic beverage intake Current non-drinker of alcohol (finding) [facility] Are you now , , , , never or living with a partner? [facility] How hard is it for y ou to pay for the very basics like food, housing, medical care, and heating Not very hard [facility] Start: 03-26-2015 End: 11-26-2024 [facility] (finding[facility] Start: 11-25-2024 SDOH Follow up SDOH Follow up [facility] Work Phone: Medical Equipment Procedure Code Equipment Code Equipment Origin al Text Equipment Identifier Dates 4 times daily use [id number] Start: 10-16-2023 End: 10-15-2024 5 injections coleman ly. Use as instructed [id number] Start: 10-29-2024 End: 10-29-2025 Goals Date Patient Goal Desired Activity /State Functional Status Date Assessment Result Facility 11-26-2024 Functional status Patient at Baseline [facility] Work Phone: 09-08-2024 Functional status Patient at Baseline [facility] Work Phone: 09-06-2024 Functional status Patient is Pro gressing Toward Baseline [facility] Work Phone: 10-25-2023 Functional Status N/A [facility] 05-22-2023 Functional Status N/A [facility] 05-11-2023 Functional Status [facility] 02-22-2023 Functional Status N/A [facility] 09-21-2022 Functional Status N/A [facility] 09-13-2022 Functional Status N/A [facility] Mental Status Date Assessment Result Facility 11-26-2024 Cognitive function Cognitive Sta tus Patient at Baseline [facility] Work Phone: 09-08-2024 Cognitive function Cognitive Sta tus Patient at Baseline [facility] Work Phone: 09-06-2024 Cognitive function Cognitive Sta tus Patient is Progressing Toward Baseline [facility] Work Phone: Clinical Notes 01-17-2021 to 03-13-2025 Telephone Encounter - Agusto Gray CNA - 03/13/2025 12:01 PM EDTTelephone Encounter - Agusto Gray CNA - 03/13/2025 12:01 PM Zach Ch PA-C - 03/12/2025 1:00 PM EDTPatient Instructions Note Date & Type Note Facility 03-13-2025 Miscellaneous Notes Last OV: 03/11/25 Next OV: 06/18/25 OARRS appropriate: yes Last UDS: 03/11/25 Pharmacy: [facility] documented in this encounter [facility] 03-13-2025 Telephone encounter Note Last OV: 03/11/25 Next OV: 06/18/25 OARRS appropriate: yes Last UDS: 03/11/25 Pharmacy: [facility] 03-12-2025 History of Presen t illness Narrative [facility] [address] [place] [address] Patient: Aislinn Wheeler Sex: female : 1960 Age: 64 y.o. PCP: KAPIL MAXWELL MD 03/12/2025 Aislinn Wheeler is here for a(n) post procedure follow up 02/28/25 Rt Stellate Ganglion with 50% relief. Date of onset of pain: 2002 , pain has lasted greater than 3 months. Pain scale before treatment: 05/30 Percentage and duration of relief after treatment: [...] cart, cold/heat). Treatments tried: Tizanidine, Lyrica, Gabapentin, [place], Elevation, NSAIDs x 2 (Ibuprofen, Aleve), Flexeril, BioFreeze, Immobilization w/min relief, Celebrex & compound cream w/no relief, Rt Stellate Ganglion NB w/mod relief. The treatment provided moderate relief. The effect of pain on patient's ADLS: Moderate Impairment. Past Medical History: Diagnosis Date Arthritis RHEUMATOID Arthritis OSTEOARTHRITIS Asthma At risk for UTI related to indwelling catheter Broken toes 08/2022 [place] UTERINE Chronic kidney disease 2015 stage 3 per pt 04/05/23 COVID-19 virus infection 09/28/2021 Diabetes mellitus [place] Fibromyalgia GERD (gastroesophageal reflux disease) History of degenerative disc disease Hypertension Joint pain Lupus Mitral valve prolapse Osteoarthritis Pneumonia released from hospital on 11/12/21 RSD (reflex sympathetic dystrophy) St[place] Past Surgical History: Procedure Laterality Date AMPUTATION OF REPLICATED TOES Left 06/2022 ANKLE SURGERY CATARACT EXTRACTION, BILATERAL Bilateral 03/22 and 04/13 CHOLECYSTECTOMY HYSTERECTOMY INJECTION BLOCK NERVE STELLATE GANGLION NECK Right 02/28/2025 Performed by Zackery Miranda MD at [facility] INJECTION BLOCK NERVE STELLATE GANGLION NECK Right 03/15/2024 Performed by Zackery Miranda MD at [facility] INJECTION BLOCK NERVE STELLATE GANGLION NECK Right 10/13/2023 Performed by Zackery Miranda MD at [facility] PAIN INJECTION BLOCK NERVE STELLATE GANGLION NECK Right 12/23/2022 Performed by Zackery Miranda MD at [facility] PAIN INJECTION BLOCK NERVE STELLATE GANGLION NECK Right 05/06/2022 Performed by Zackery Miranda MD at [facility] PA[facility] INJECTION BLOCK NERVE STELLATE GANGLION NECK Right 10/15/2021 Performed by Zackery Miranda MD at [facility] PAIN INJECTION BLOCK STELLATE GANGLION N/A 02/17/2017 Performed by Zackery Miranda MD at [facility] PAIN INJECTION BLOCK STELLATE GANGLION NECK Right 06/18/2018 [facility] STELLATE GANGLION NECK N/A 05/15/2017 Performed by Zackery Miranda MD at [facility] PAIN INJECTION BLOCK STELLATE GANGLION NECK Right Right 05/22/2020 Performed by Zackery Miranda MD at [facility] PAIN INJECTION BLOCK STELLATE GANGLION NECK Right N/A 10/04/2019 Performed by Zackery Miranda MD at [facility] PAIN INJECTION BLOCK STELLATE GANGLION NECK Right Right 05/10/2019 Performed by Zackery Miranda MD at [facility] PAIN INJECTION BLOCK STELLATE GANGLION NECK Right Right 12/31/2018 Performed by Zackery Miranda MD at [facility] PAIN INJECTION BLOCK STELLATE GANGLION NECK Right Right 10/09/2017 Performed by Zackery Miranda MD at [facility] KNEE SURGERY REMOVAL STIMULATOR SPINAL CORD N/A 12/29/2017 Performed by Zackery Miranda MD at [facility] SHOULDER SURGERY Allergies Allergen Reactions Latex [...] Resource Strain: Medium Risk (10/11/2023) Received from [facility] Overall Financial Resource Strain (CARDIA) Difficulty of Paying Living Expenses: Somewhat hard Food Insecurity: No Food Insecurity (03/12/2025) Hunger Screening Food Insecurity - Worry: Never True Food Insecurity - Inability: Never True Transportation Needs: No Transportation Needs (10/11/2023) Received from [facility] PRAPARE - Transportation Lack of Transportation (Medical): No Lack of Transportation (Non-Medical): No Physical Activity: Inactive (10/11/2023) Received from [facility] Exercise Vital Sign Days of Exercise per Week: 0 days Minutes of Exercise per Session: 0 min Stress: Stress Concern Present (10/11/2023) Received from [facility] [employer] - Occupational Stress Questionnaire Feeling of Stress : Very much Social Connections: Socially Isolated (10/11/2023) Received from [facility] Social Connection and Isolation Panel [NHANES] Frequency of Communication with Friends and Family: More than three times a week Frequency of Social Gatherings with Friends and Family: More than three times a week Attends Sikhism Services: Never Active Member of Clubs or Organizations: No Attends Club or Organization Meetings: Never Marital Status: Interpersonal Safety: Unknown (10/12/2023) Received from [facility] [place] Safety & Environment Fear of Current or Ex-Partner: Not on file Emotionally Abused: Not on file Physically Abused: Not on file Sexually Abused: Not on file Physically or Sexually Abused: Not on file Housing Instability: Low Risk (10/11/2023) Received from [facility] Housing Stability Vital Sign Unable to [...] kg (128 lb) SpO2 96% BMI 25.00 kg/m Physical Exam: GENERAL - Healthy patient [...] - Gabapentin, Urine - Pregabalin, Urine Continue Madison 7.5/325 mg TID PRN and Lyrica 150 [...] medication that requires intensive monitoring for toxicity Madison and Lyrica. OARRS and most recent UDS were reviewed, discussed and appropriate for medications prescribed. Madison pill count completed at today's office visit. Dose: 7.5-325 x3 Daily Quantity Dispensed: 90 Quantity Remainin Fill date on prescription bottle: 02/24/25 appropriate Patient educated to bring medication to every office visit. It does appear that the patient benefited from the previous injection and the benefit has continued through this visit. At this time, we will monitor the patient s symptoms from an interventional standpoint and consider another injection in the future if the patient s symptoms return or intensify severely. The patient [...] and CKD OARRS: Reviewed. Scribe Statement: I, Agusto Gray CNA, scribed for and in the presence of SWETA CH PA-C who performed the above service. Agusto Gray CNA 03/12/25 1332 Agusto Gray CNA 03/12/25 1343 Sweta Ch PA-C 03/12/25 1345 documented in this encounter [facility] 03-12-2025 Miscellaneous Notes Addended by: JENNA VÁSQUEZ on: 03/12/2025 06:51 PM Modules accepted: Orders documented in this encounter [facility] 03-12-2025 Note Addended by: JENNA BAUMAN on: 03/12/2025 06:51 PM Modules accepted: Orders [facility] 03-03-2025 Miscellaneous Notes Per the lab [facility] urine collection did not have 2 patient identifiers listed on the specimen so they were not able to run the labs. We will need to recollect. I apologize, this was my error, I did not attached the labels to the specimen. Patient has a follow up on 03/12/2025 at 1 pm. Is it okay to recollect at that time? Ok to repeat Attempt to call patient to advise of error, no answer. UDS was done at most recent OV 03/12 documented in this encounter [facility] 03-03-2025 Telephone encounter Note Per the lab [facility] urine collection did not have 2 patient identifiers listed on the specimen so they were not able to run the labs. We will need to recollect. [facility] 03-03-2025 Telephone encounter Note I apologize, this was my error, I did not attached the labels to the specimen. Patient has a follow up on 03/12/2025 at 1 pm. Is it okay to recollect at that time? [facility] 03-03-2025 Telephone encounter Note Ok to repeat [facility] 03-03-2025 Telephone encounter Note Attempt to call patient to advise of error, no answer. [facility] 03-03-2025 Telephone encounter Note UDS was done at most recent OV 03/12 [facility] 02-11-2025 Miscellaneous Notes Last OV: 01/08/25 needs inj Next OV: 03/12/25 OARRS appropriate: yes Last UDS: 04/24/24 Pharmacy: [facility] This needs signed by Willis documented in this encounter [facility] 02-11-2025 Telephone encounter Note Last OV: 01/08/25 needs inj Next OV: 03/12/25 OARRS appropriate: yes Last UDS: 04/24/24 Pharmacy: [facility] 02-11-2025 Telephone encounter Note This needs signed by Willis [facility] 02-06-2025 Miscellaneous Notes Pt calls to report she was in the ER because she advised to report there to treat high potassium of 7.3 ER report in pts chart. HPI reports [...] rescheduled 02/28/2025 Is there anything specific doctor willis or the HVAC ENGINEERING TECHNICIAN's want prior to 02/28/2025 scheduled procedure? PCP clearance PCP clearance sent today via [employer] Received clearance back with the following: Pt discharged from practice d/t non-compliance Called pt, her new PCP is Dr Maxwell. States her blood work from today was good . States she was just discharged today from [facility] and will have a f/u with him on 02/19/2025 New clearance letter will be sent on 02/18/2025 Will request records from [facility] from hospitalization. Surgical clearance received from PCP today. Patient's procedure is scheduled for 02/28/2025. documented in this encounter [facility] 02-06-2025 Telephone encounter Note Pt calls to report she was in the ER because she advised to report there to treat high potassium of 7.3 ER report in pts chart. HPI reports [...] rescheduled 02/28/2025 Is there anything specific doctor willis or the HVAC ENGINEERING TECHNICIAN's want prior to 02/28/2025 scheduled procedure? [facility] 02-06-2025 Telephone encounter Note PCP clearance [facility] 02-06-2025 Telephone encounter Note PCP clearance sent today via epic [facility] 02-06-2025 Telephone encounter Note Received clearance back with the following: Pt discharged from practice d/t non-compliance Called pt, her new PCP is Dr Maxwell. States her blood work from today was good . States she was just discharged today from [facility] and will have a f/u with him on 02/19/2025 New clearance letter will be sent on 02/18/2025 Will request records from [facility] from hospitalization. [facility] 02-06-2025 Telephone encounter Note Surgical clearance received from PCP today. Patient's procedure is scheduled for 02/28/2025. [facility] 01-27-2025 History of Presen t illness Narrative [...] hyperglycemia, with long-term current use of insulin ([facility]) Check blood sugars daily, notify if <70 [...] source of fatigue Associated Problem(s): Hyperparathyroidism, unspecified ([facility]) Non compliant with fu with nephrology Associated [...] follow through She is established with local Field Administrative Assistant Goal: bp and DM control, although there again her compliance with blood sugar checking is difficult. She has been referred to local area Endo and Canned Food Reconditioning Inspector, but does not go to her appts [...] neuropathy, with long-term current use of insulin ([facility]) Not sure if her balance issues are [...] factor. Also had stress test/echo: 11/2024 at [facility] normal Back pain: no pain [...] (LASIX) 40 mg, 2 times daily HYDROcodone-acetaminophen (Madison) 7.5-325 MG tablet 1 tablet, 3 times [...] Diagnosis Date Amputation of left great toe ([facility]) Cervical cancer ([facility]) 10/11/2023 had Hysterectomy Charcot's joint of foot, left 10/11/2023 Chronic kidney disease, stage III (moderate) (HCC) ([facility]) 10/11/2023 Fatty liver 10/11/2023 History of hysterectomy [...] of nail of digit of hand Osteoporosis ([facility]) 10/11/2023 Post-menopausal 10/11/2023 Rheumatoid arthritis ([facility]) 10/11/2023 RSD (reflex sympathetic dystrophy) 10/11/2023 Type 2 diabetes mellitus with diabetic neuropathy, 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 ([facility]) 10/11/2023 Visual impairment 10/11/2023 HAD BILATERAL CATARCT [...] hyperglycemia, with long-term current use of insulin ([facility]) Check blood sugars daily, notify if <70 [...] Straight caths self TID Essential (primary) hypertension ([facility]) Please check blood pressure daily and record [...] neuropathy, with long-term current use of insulin ([facility]) Not sure if her balance issues are neuropathy related or lumbar etiology Relevant Orders Basic metabolic panel 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 Check labs Relevant Orders Basic metabolic panel Hyperparathyroidism, unspecified ([facility]) Non compliant with fu with nephrology B12 deficiency Check to see if source of fatigue Mixed hyperlipidemia ([facility]) Relevant Medications atorvastatin (Lipitor) 20 MG tablet Other Relevant Orders Basic metabolic panel Chronic kidney disease, stage 4 (severe) ([facility]) Long standing uncontrolled HTN and DM Multiple attempts to get pt to specialists, does not follow through She is established with local Field Administrative Assistant Goal: bp and DM control, although there again her compliance with blood sugar checking is difficult. She has been referred to local area Endo and Canned Food Reconditioning Inspector, but does not go to her appts [...] Vitamin B12 Folate documented in this encounter [facility] 01-27-2025 Instructions Agusto Olmstead NP - 01/27/2025 2:40 PM EDT Check labs documented in this encounter [facility] 01-15-2025 Miscellaneous Notes Last Office Visit: 01/08/2025 Next Office Visit: Visit date not found Last Urine Drug Screen: Lab Results Component Value Date BENZOSCRN Negative 08/09/2023 OARRS appropriate documented in this encounter [facility] 01-15-2025 Telephone encounter Note Last Office Visit: 01/08/2025 Next Office Visit: Visit date not found Last Urine Drug Screen: Lab Results Component Value Date BENZOSCRN Negative 08/09/2023 OARRS appropriate [facility] 01-08-2025 History of Presen t illness Narrative [facility] [address] [place] [address] Patient: Aislinn Wheeler Sex: female : 1960 Age: 64 y.o. PCP: AGUSTO OLMSTEAD APRN-MANAGER CONTROL 01/08/2025 Aislinn Wheeler is here for a(n)3 [...] cart, cold/heat). Treatments tried: Tizanidine, Lyrica, Gabapentin, Madison, Elevation, NSAIDs x 2 (Ibuprofen, Aleve), Flexeril, BioFreeze, Immobilization w/min relief, Celebrex & compound cream w/no relief, Rt Stellate Ganglion NB w/mod relief. The treatment provided moderate relief. The effect of pain on patient's ADLS: Moderate Impairment. Past Medical History: Diagnosis Date Arthritis RHEUMATOID Arthritis OSTEOARTHRITIS Asthma At risk for UTI related to indwelling catheter Broken toes 08/2022 [place]chitis [place] UTERINE Chronic kidney disease 2015 stage 3 per pt 04/05/23 COVID-19 virus infection 09/28/2021 Diabetes mellitus [place] Fibromyalgia GERD (gastroesophageal reflux disease) History of degenerative disc disease Hypertension Joint pain Lupus Mitral valve prolapse Osteoarthritis Pneumonia released from hospital on 11/12/21 RSD (reflex sympathetic dystrophy) Stroke [place] Past Surgical History: Procedure Laterality Date AMPUTATION OF REPLICATED TOES Left 06/2022 ANKLE SURGERY CATARACT EXTRACTION, BILATERAL Bilateral 03/22 and 04/13 CHOLECYSTECTOMY HYSTERECTOMY INJECTION BLOCK NERVE STELLATE GANGLION NECK Right 03/15/2024 Performed by Zackery Miranda MD at [facility] PAIN INJECTION BLOCK NERVE STELLATE GANGLION NECK Right 10/13/2023 Performed by Zackery Miranda MD at [facility] PAIN INJECTION BLOCK NERVE STELLATE GANGLION NECK Right 12/23/2022 Performed by Zackery Miranda MD at [facility] PAIN INJECTION BLOCK NERVE STELLATE GANGLION NECK Right 05/06/2022 Performed by Zackery Miranda MD at [facility] PAIN INJECTION BLOCK NERVE STELLATE GANGLION NECK Right 10/15/2021 Performed by Zackery Miranda MD at [facility]IN INJECTION BLOCK STELLATE GANGLION N/A 02/17/2017 Performed by Zackery Miranda MD at [facility] PAIN INJECTION BLOCK STELLATE GANGLION NECK Right 06/18/2018 Performed by Zackery Miranda MD at [facility] PAIN INJECTION BLOCK STELLATE GANGLION NECK N/A 05/15/2017 Performed by Zackery Miranda MD at [facility] PAIN INJECTION BLOCK STELLATE GANGLION NECK Right Right 05/22/2020 Performed by Zackery Miranda MD at [facility] PAIN INJECTION BLOCK STELLATE GANGLION NECK Right N/A 10/04/2019 Performed by Zackery Miranda MD at [facility] INJECTION BLOCK STELLATE GANGLION NECK Right Right 05/10/2019 Performed by Zackery Miranda MD at [facility] INJECTION BLOCK STELLATE GANGLION NECK Right Right 12/31/2018 Performed by Zackery Miranda MD at [facility] INJECTION BLOCK STELLATE GANGLION NECK Right Right 10/09/2017 Performed by Zackery Miranda MD at [facility] KNEE SURGERY REMOVAL STIMULATOR SPINAL CORD N/A 12/29/2017 Performed by Zackery Miranda MD at [facility] SHOULDER SURGERY Allergies Allergen Reactions Latex [...] Resource Strain: Medium Risk (10/11/2023) Received from [facility] Overall Financial Resource Strain (CARDIA) Difficulty of Paying Living Expenses: Somewhat hard Food Insecurity: No Food Insecurity (01/08/2025) Hunger Screening Food Insecurity - Worry: Never True Food Insecurity - Inability: Never True Transportation Needs: No Transportation Needs (10/11/2023) Received from [facility] PRAPARE - Transportation Lack of Transportation (Medical): No Lack of Transportation (Non-Medical): No Physical Activity: Inactive (10/11/2023) Received from [facility] Exercise Vital Sign Days of Exercise per Week: 0 days Minutes of Exercise per Session: 0 min Stress: Stress Concern Present (10/11/2023) Received from [facility] [employer] - Occupational Stress Questionnaire Feeling of Stress : Very much Social Connections: Socially Isolated (10/11/2023) Received from [facility] Social Connection and Isolation Panel [NHANES] Frequency of Communication with Friends and Family: More than three times a week Frequency of Social Gatherings with Friends and Family: More than three times a week Attends Sikhism Services: Never Active Member of Clubs or Organizations: No Attends Club or Organization Meetings: Never Marital Status: Interpersonal Safety: Unknown (10/12/2023) Received from [facility] Safety & Environment Fear of Current or Ex-Partner: Not on file Emotionally Abused: Not on file Physically Abused: Not on file Sexually Abused: Not on file Physically or Sexually Abused: Not on file Housing Instability: Low Risk (10/11/2023) Received from [facility] Housing Stability Vital Sign Unable to [...] - Gabapentin, Urine - Pregabalin, Urine Continue Madison 7.5/325 mg TID PRN and Lyrica 150 [...] medication that requires intensive monitoring for toxicity Madison and Lyrica. OARRS and most recent UDS were reviewed, discussed and appropriate for medications prescribed. Madison pill count completed at today's office visit. [...] for these reasons. OARRS: Reviewed. Scribe Statement: Agusto Humphries CNA, scribed for and in the presence of SWETA CH PA-C who performed the above service. Agusto Gray CNA 01/08/25 1322 Sweta Ch PA-C 01/08/25 1327 documented in this encounter [facility] 01-08-2025 Instructions Agusto OliviajenniferELEUTERIO - 01/08/2025 12:15 PM EDT Epidural Steroid [...] a safety precaution, you must have a route delivery service driver after a lumbar nerve root injection, [...] back to normal. documented in this encounter [facility] 12-18-2024 Miscellaneous Notes Last OV: 10/09/24 Next OV: 01/08/25 OARRS appropriate: yes Last UDS: 04/24/24 Pharmacy: [facility] documented in this encounter [facility] 12-18-2024 Telephone encounter Note Last OV: 10/09/24 Next OV: 01/08/25 OARRS appropriate: yes Last UDS: 04/24/24 Pharmacy: [facility] 12-05-2024 History of Presen t illness [...] oral antibiotics and was last seen at [facility] inpatient Pt presents today for follow up. Patient is type 2 diabetic with uncontrolled sugars Allergies: Allergies Allergen Reactions Latex Rash Added based on information entered during case entry, please review and add reactions, type, and severity as needed Past Medical History: Past Medical History: Diagnosis Date Amputation of left great toe ([facility]) Cervical cancer ([facility]) 10/11/2023 had Hysterectomy Charcot's joint of foot, left 10/11/2023 Chronic kidney disease, stage III (moderate) ([facility]) ([facility]) 10/11/2023 Fatty liver 10/11/2023 History of hysterectomy [...] of nail of digit of hand Osteoporosis ([facility]) 10/11/2023 Post-menopausal 10/11/2023 Rheumatoid arthritis ([facility]) 10/11/2023 RSD (reflex sympathetic dystrophy) 10/11/2023 Type 2 diabetes mellitus with diabetic neuropathy, 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 ([facility]) 10/11/2023 Visual impairment 10/11/2023 HAD BILATERAL CATARCT [...] Reported on 12/04/2024), Disp: , Rfl: HYDROcodone-acetaminophen (Madison) 7.5-325 MG tablet, Take 1 tablet by [...] polyneuropathy, with long-term current use of insulin ([facility]) PLAN Patient may returned to normal shoe gear and discontinue antibiotics and contact Podiatry if any further issues Patient educated today on proper diabetic foot care including monitoring feet daily for any signs of infection openings in the skin or irregularities to both feet. Patient had a diabetic neurological exam today to both their feet and discussed proper shoe gear. Cory Angeles DPM documented in this encounter [facility] 12-04-2024 History of Presen t illness Narrative Associated Problem(s): Memory impairment Will send for neuropsych evaluation to determine if underlying issue contributes to non compliance Associated Problem(s): Non compliance w medication regimen Difficulty with follow ups, taking all meds and getting to all appts Now has pt advocateReyes Associated Problem(s): Type 2 diabetes mellitus with hyperglycemia, with long-term current use of insulin ([facility]) Check blood sugars daily, notify if <70 [...] surgical options Associated Problem(s): Acute renal failure (CMS/HCC) Recent hospitalization for this Needs to be compliant with fu with Nephrology Phone number given Associated Problem(s): Type 2 diabetes mellitus with diabetic neuropathy, with long-term current use of insulin (CMS/HCC) Recommend freq foot checks, proper fitting shoes And better glucose control Images from the original note were not included. Aislinn Wheeler is a 64 y.o. female presents with chief complaint of Follow-up ([facility] hospital f/up) HPI: Here for hospital fu: was sent by myself (after review of labs dated 11/21/24) ANATOLIY, hyperkalemia Reviewed notes from [facility] for specialty and labs and [...] (LASIX) 40 mg, 2 times daily HYDROcodone-acetaminophen (Madison) 7.5-325 MG tablet 1 tablet, 3 times [...] Diagnosis Date Amputation of left great toe ([facility]) Cervical cancer ([facility]) 10/11/2023 had Hysterectomy Charcot's joint of foot, left 10/11/2023 Chronic kidney disease, stage III (moderate) ([facility]) ([facility]) 10/11/2023 Fatty liver 10/11/2023 History of hysterectomy [...] of nail of digit of hand Osteoporosis ([facility]) 10/11/2023 Post-menopausal 10/11/2023 Rheumatoid arthritis ([facility]) 10/11/2023 RSD (reflex sympathetic dystrophy) 10/11/2023 Type 2 diabetes mellitus with diabetic neuropathy, 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 ([facility]) 10/11/2023 Visual impairment 10/11/2023 HAD BILATERAL CATARCT [...] hyperglycemia, with long-term current use of insulin ([facility]) Check blood sugars daily, notify if <70 [...] neuropathy, with long-term current use of insulin ([facility]) Recommend freq foot checks, proper fitting shoes And better glucose control Chronic kidney disease, stage 4 (severe) ([facility]) - Primary Long standing uncontrolled HTN and DM Multiple attempts to get pt to specialists, does not follow through She is established with local Field Administrative Assistant Goal: bp and DM control, although there again her compliance with blood sugar checking is difficult. She has been referred to local area Endo and C[employer] Re[employer] Inspector, but does not go to her appts as scheduled and has been discharged, and does not appear to have a strong support system Relevant Orders Basic metabolic panel CBC and differential 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 ([facility]) Non compliance w medication regimen Difficulty with follow ups, taking all meds and getting to all appts Now has pt advocate, Reyes Canela Acute renal failure ([facility]) Recent hospitalization for this Needs to be compliant with fu with Nephrology Phone number given History of neurogenic bladder Memory impairment Will send for neuropsych evaluation to determine if underlying issue contributes to non compliance Relevant Orders Ambulatory referral to Neuropsychology Associated Problem(s): Essential (primary) hypertension ([facility]) Please check blood pressure daily and record DASH diet Limit caffeine Take medication as directed Contact office if chest pain, pressure, dizziness, shortness of breath, swelling legs Recommend slow position changes Current meds: amlodipine and metoprolol Associated Problem(s): Chronic kidney disease, stage 4 (severe) ([facility]) Long standing uncontrolled HTN and DM Multiple attempts to get pt to specialists, does not follow through She is established with local Field Administrative Assistant Goal: bp and DM control, although there again her compliance with blood sugar checking is difficult. She has been referred to local [facility]o and C[employer] Food Reconditioning Inspector, but does not go to her appts as scheduled and has been discharged, and does not appear to have a strong support system documented in this encounter [facility] 12-04-2024 Instructions Agusto Olmstead NP - 12/04/2024 11:00 AM EDT [facility] [employer] Aleksey, please call him to schedule an appointment: I have attached the letter he sent you. Kidney doctor: please call them to make sure you have a follow up appointment: [address] [place] [address], phone: [phone] Foot doctor: Dr Enrique, call his office to see about a follow up appt for them to check your foot. [phone] I would also like to have you see a Neuropsychiatrist: this is a doctor that helps us figure out more about your memory, like to see if this is related to depression/anxiety , or dementia, or other things, Dr Gonzalez [phone] they should call you documented in this encounter [facility] 11-26-2024 Progress note Note Date/Time November 26, 2024 11:53am [facility] [address] [place] [address] Nephrology Progress Note Signed Patient: Aislinn Wheeler MR#: [id number] : 1960 Acct:[id number] Age/Sex: 64 / F Adm Date: 5 Loc: Room: [address] [place] [address] Type: ADM IN Attending Dr: Demian Dorantes [...] has no improvement. [facility] that she was advised to have a major surgery that she opted against it. She reported now she is referred to the [facility] by her PCP. Patient has a CKD [...] 10 Mg Tablet) 10 mg PO DAILY [facility] Stop: 11/24/25 08:59 Last Admin: 11/26/24 09:36 Dose: 10 mg Atorvastatin Calcium (Atorvastatin 20 Mg Tablet) 20 mg PO DAILY [facility] Stop: 11/24/25 08:59 Last Admin: 11/26/24 09:36 Dose: 20 mg Dextrose (Dextrose 50% In Water 25 Gm/50 Ml Syringe) 0 gm IV-PUSH PRN PRN PRN Reason: Hypoglycemia Stop: 11/24/25 02:41 Ergocalciferol (Ergocalciferol 1,250 Mcg (50,000 Units) Capsule) 1,250 mcg PO Mo@0900 [facility] Stop: 12/02/25 08:59 Ferrous Sulfate (Ferrous Sulfate 324 Mg Tablet.Dr) 324 mg PO DAILY [facility] Stop: 11/24/25 08:59 Last Admin: 11/26/24 09:36 Dose: 324 mg Fluticasone Propionate (Fluticasone Propionate Creston 120 Creston/16 Gm Bottle) 2 spray INTRANASAL DAILY PRN PRN Reason: nasal congestion Stop: 11/23/25 18:54 Glucose (Dextrose 40% Gel 15 Gm Tube) 0 gm PO PRN PRN PRN Reason: Hypoglycemia Stop: 11/24/25 02:41 Heparin Sodium (Porcine) (Heparin 5,000 Unit/Ml Vial) 5,000 unit SUBCUT Q12HR UZIEL Stop: 11/23/25 20:59 Last Admin: 11/26/24 09:37 Dose: 5,000 unit Hydralazine HCl (Hydralazine 20 Mg/Ml Vial) 10 mg IV-PUSH Q6H PRN PRN Reason: if SBP > 185 Stop: 11/23/25 18:48 Last Admin: 11/25/24 12:40 Dose: 10 mg Ampicillin Sodium/Sulbactam Sodium (Unasyn) 3 gm in 100 mls @ 200 mls/hr IV Q12H [facility] Last Admin: 11/26/24 09:36 Dose: 200 mls/hr Insulin Aspart (Insulin Aspart 300 Units/3 Ml) 0 units SUBCUT TID.WITH.MEALS [facility]; Protocol Stop: 11/24/25 07:59 Last Admin: 11/26/24 09:37 Dose: 4 units Insulin Aspart (Insulin Aspart 300 Units/3 Ml) 0 units SUBCUT TID.WM.HS [facility]; Protocol Stop: 11/24/25 07:59 Last Admin: 11/26/24 08:28 Dose: Not Given Insulin Glargine (Insulin Glargine 300 Units/3 Ml Insuln.Pen) 28 units SUBCUT QHS [facility] Stop: 11/23/25 21:59 Last Admin: 11/25/24 21:09 Dose: 28 units Loratadine (Loratadine 10 Mg Tablet) 10 mg PO DAILY PRN PRN Reason: allergy symptoms Stop: 11/23/25 20:59 Melatonin (Melatonin 5 Mg Tablet) 5 mg PO QHS PRN PRN Reason: insomnia Stop: 11/26/25 21:59 Last Admin: 11/25/24 23:35 Dose: 5 mg Metoprolol Succinate (Metoprolol Succinate 50 Mg Tab.Er.24h) 50 mg PO DAILY [facility] Stop: 11/25/25 08:59 Last Admin: 11/26/24 09:36 Dose: 50 mg Nitroglycerin (Nitroglycerin 0.4 Mg Tab.Subl) 0.4 mg SUBLINGUAL Q5M PRN PRN Reason: chest pain Stop: 11/23/25 18:54 Ondansetron HCl (Ondansetron Odt 4 Mg Tab.Rapdis) 4 mg PO Q8HR PRN PRN Reason: nausea and vomiting Stop: 11/23/25 18:54 Pantoprazole Sodium (Pantoprazole 40 Mg Tablet.Dr) 40 mg PO DAILY [facility] Stop: 11/24/25 08:59 Last Admin: 11/26/24 09:36 Dose: 40 mg Pregabalin (Pregabalin 150 Mg Capsule) 150 mg PO Q8HR [facility] Stop: 05/22/25 21:59 Last Admin: 11/26/24 05:29 [...] She follows with the urology outpatient at [facility]. (5) Neurogenic bladder: Assessment/Problem Details: She has a neurogenic bladder and was seen by the urology at [facility]. She was recommended to have a surgical intervention but opted against this. She is referred to now urogynecologist at [facility] for second opinion. (6) Diabetes: Assessment/Problem Details: [...] use selfcath at home and follow-up with [facility] for neurogenic bladder and recurrent urine retention. Patient will follow-up with Dr. Sprague in nephrology clinic. Documented By: Akin Dougherty MD 11/26/24 1147 Signed By: <Electronically signed by MD Akin Dougherty> 11/26/24 1154 [facility] Work Phone: 1(532) 637-254404-08-2025 [place] [address] Nephrology Progress Note Signed Patient: Aislinn Wheeler MR#: [id number] : 1960 Acct:[id number] Age/Sex: 64 / F Adm Date: 5 Loc: Room: [address] [place] [address] Type: ADM IN Attending Dr: Demian Dorantes [...] has no improvement. [facility] she was advised to have a major surgery that she opted against it. She reported now she is referred to the [facility] by her PCP. Patient has a CKD [...] 10 Mg Tablet) 10 mg PO DAILY [facility] Stop: 11/24/25 08:59 Last Admin: 11/26/24 09:36 Dose: 10 mg Atorvastatin Calcium (Atorvastatin 20 Mg Tablet) 20 mg PO DAILY [facility] Stop: 11/24/25 08:59 Last Admin: 11/26/24 09:36 Dose: 20 mg Dextrose (Dextrose 50% In Water 25 Gm/50 Ml Syringe) 0 gm IV-PUSH PRN PRN PRN Reason: Hypoglycemia Stop: 11/24/25 02:41 Ergocalciferol (Ergocalciferol 1,250 Mcg (50,000 Units) Capsule) 1,250 mcg PO Mo@0900 [facility] Stop: 12/02/25 08:59 Ferrous Sulfate (Ferrous Sulfate 324 Mg Tablet.Dr) 324 mg PO DAILY [facility] Stop: 11/24/25 08:59 Last Admin: 11/26/24 09:36 Dose: 324 mg Fluticasone Propionate (Fluticasone Propionate Creston 120 Creston/16 Gm Bottle) 2 spray INTRANASAL DAILY PRN PRN Reason: nasal congestion Stop: 11/23/25 18:54 Glucose (Dextrose 40% Gel 15 Gm Tube) 0 gm PO PRN PRN PRN Reason: Hypoglycemia Stop: 11/24/25 02:41 Heparin Sodium (Porcine) (Heparin 5,000 Unit/Ml Vial) 5,000 unit SUBCUT Q12HR U[facility] Stop: 11/23/25 20:59 Last Admin: 11/26/24 09:37 Dose: 5,000 unit Hydralazine HCl (Hydralazine 20 Mg/Ml Vial) 10 mg IV-PUSH Q6H PRN PRN Reason: if SBP > 185 Stop: 11/23/25 18:48 Last Admin: 11/25/24 12:40 Dose: 10 mg Ampicillin Sodium/Sulbactam Sodium (Unasyn) 3 gm in 100 mls @ 200 mls/hr IV Q12H [facility] Last Admin: 11/26/24 09:36 Dose: 200 mls/hr Insulin Aspart (Insulin Aspart 300 Units/3 Ml) 0 units SUBCUT TID.WITH.MEALS [facility]; Protocol Stop: 11/24/25 07:59 Last Admin: 11/26/24 09:37 Dose: 4 units Insulin Aspart (Insulin Aspart 300 Units/3 Ml) 0 units SUBCUT TID.WM.HS [facility]; Protocol Stop: 11/24/25 07:59 Last Admin: 11/26/24 08:28 Dose: Not Given Insulin Glargine (Insulin Glargine 300 Units/3 Ml Insuln.Pen) 28 units SUBCUT QHS [facility] Stop: 11/23/25 21:59 Last Admin: 11/25/24 21:09 Dose: 28 units Loratadine (Loratadine 10 Mg Tablet) 10 mg PO DAILY PRN PRN Reason: allergy symptoms Stop: 11/23/25 20:59 Melatonin (Melatonin 5 Mg Tablet) 5 mg PO QHS PRN PRN Reason: insomnia Stop: 11/26/25 21:59 Last Admin: 11/25/24 23:35 Dose: 5 mg Metoprolol Succinate (Metoprolol Succinate 50 Mg Tab.Er.24h) 50 mg PO DAILY [facility] Stop: 11/25/25 08:59 Last Admin: 11/26/24 09:36 Dose: 50 mg Nitroglycerin (Nitroglycerin 0.4 Mg Tab.Subl) 0.4 mg SUBLINGUAL Q5M PRN PRN Reason: chest pain Stop: 11/23/25 18:54 Ondansetron HCl (Ondansetron Odt 4 Mg Tab.Rapdis) 4 mg PO Q8HR PRN PRN Reason: nausea and vomiting Stop: 11/23/25 18:54 Pantoprazole Sodium (Pantoprazole 40 Mg Tablet.Dr) 40 mg PO DAILY [facility] Stop: 11/24/25 08:59 Last Admin: 11/26/24 09:36 Dose: 40 mg Pregabalin (Pregabalin 150 Mg Capsule) 150 mg PO Q8HR [facility] Stop: 05/22/25 21:59 Last Admin: 11/26/24 05:29 [...] She follows with the urology outpatient at [facility]. (5) Neurogenic bladder: Assessment/Problem Details: She has a neurogenic bladder and was seen by the urology at [facility]. She was recommended to have a surgical intervention but opted against this. She is referred to now urogynecologist at [facility] for second opinion. (6) Diabetes: Assessment/Problem Details: [...] use selfcath at home and follow-up with [facility] for neurogenic bladder and recurrent urine retention. Patient will follow-up with Dr. Sprague in nephrology clinic. Documented By: Akin Dougherty MD 11/26/24 1147 Signed By: 11/26/24 1153 [facility]04-07-2025 Progress note Author Jodi Merchant [facility] Note Date/Time November 25, 2024 8:08 pm [facility] [address] [place] [address] Hospitalist Progress Note Signed Patient: Aislinn Wheeler MR#: [id number] : 1960 Acct:[id number] Age/Sex: 64 / F Adm Date: 5 Loc: Room: [address] [place] [address] Type: ADM IN Attending Dr: Demian Dorantes [...] Propionate 2 spray 11/23/24 18:55 Fluticasone Propionate Creston 120 Creston/16 Gm Bottle INTRANASAL 11/23/25 18:54 DAILY PRN [...] Sterile Water IV 11/23/25 18:59 75 mls/hr .[id number] UZIEL Administration Ampicillin Sodium/Sulbactam Sodium 3 gm in 100 mls @ 200 mls/hr 11/23/24 20:30 11/24/24 20:37 Unasyn IV 200 mls/hr Q12H UZIEL Administration Insulin Aspart 0 units 11/24/24 08:00 11/25/24 09:11 Insulin Aspart 300 Units/3 Ml SUBCUT 11/24/25 07:59 Not Given TID.WITH.MEALS [facility] Protocol Insulin Aspart 0 units 11/24/24 08:00 11/25/24 09:11 Insulin Aspart 300 Units/3 Ml SUBCUT 11/24/25 07:59 Not Given TID.WM.HS [facility] Protocol Insulin Glargine 28 units 11/23/24 22:00 11/24/24 21:59 Insulin Glargine 300 Units/3 Ml Insuln.Pen SUBCUT 11/23/25 21:59 28 units QHS UZIEL Administration Loratadine 10 mg 11/23/24 21:00 Loratadine 10 Mg Tablet PO 11/23/25 20:59 DAILY PRN allergy symptoms Metoprolol Succinate 50 mg 11/25/24 09:00 11/25/24 09:03 Metoprolol Succinate 50 Mg Tab.Er.24h PO 11/25/25 08:59 Not Given DAILY [facility] Nitroglycerin 0.4 mg 11/23/24 18:55 Nitroglycerin 0.4 [...] <Electronically signed by Demian Dorantes MD> 11/25/242007 [facility] Work Phone: 1(988) 272-423304-07-2025 [place] [address] Hospitalist Progress Note Signed Patient: Aislinn Wheeler MR#: [id number] : 1960 Acct:[id number] Age/Sex: 64 / F Adm Date: 5 Loc: Room: [address] [place] [address] Type: ADM IN Attending Dr: Demian Dorantes [...] Propionate 2 spray 11/23/24 18:55 Fluticasone Propionate Creston 120 Creston/16 Gm Bottle INTRANASAL 11/23/25 18:54 DAILY PRN [...] Sterile Water IV 11/23/25 18:59 75 mls/hr .[id number] [facility] Administration Ampicillin Sodium/Sulbactam Sodium 3 gm in 100 mls @ 200 mls/hr 11/23/24 20:30 11/24/24 20:37 Unasyn IV 200 mls/hr Q12H UZIEL Administration Insulin Aspart 0 units 11/24/24 08:00 11/25/24 09:11 Insulin Aspart 300 Units/3 Ml SUBCUT 11/24/25 07:59 Not Given TID.WITH.[facility]ALS [facility] Protocol Insulin Aspart 0 units 11/24/24 08:00 11/25/24 09:11 Insulin Aspart 300 Units/3 Ml SUBCUT 11/24/25 07:59 Not Given TID.WM.HS [facility] Protocol Insulin Glargine 28 units 11/23/24 22:00 11/24/24 21:59 Insulin Glargine 300 Units/3 Ml Insuln.Pen SUBCUT 11/23/25 21:59 28 units QHS [facility] Administration Loratadine 10 mg 11/23/24 21:00 Loratadine [...] Jodi Merchant APRN 03/14 1153 Signed By: 11/25/24 1601 11/25/242007 [facility]04-07-2025 Progress note Author Irena Haro [facility] Note Date/Time November 25, 2024 3:30 pm [facility] [address] [place] [address] Cardiology Progress Note Signed Patient: Aislinn Wheeler MR#: [id number] : 1960 Acct:[id number] Age/Sex: 64 / F Adm Date: 5 Loc: 3T Room: [address] [place] [address] Type: ADM IN Attending Dr: Demian Dorantes MD Copies to: ~ Date of Service: 11/25/2024 Subjective Interval history: Ms. Wheeler is a 64 year old female who was admitted to [facility] initially for hyperkalemia. She has a long [...] stress test around 2 years ago at [facility] which was normal per patient. Here, her [...] Irena Haro MD 11/25/24 1525 Signed By: <Electronically signed by Irena Haro MD> 11/25/24 1530 [facility] Work Phone: 1(809) 547-748304-07-2025 [place] [id number] Cardiology Progress Note Signed Patient: Aislinn Wheeler MR#: [id number] : 1960 Acct:[id number] Age/Sex: 64 / F Adm Date: 5 Loc: 3T Room: [address] [place] [address] Type: ADM IN Attending Dr: Demian Dorantes MD Copies to: ~ Date of Service: 11/25/2024 Subjective Interval history: Ms. Wheeler is a 64 year old female who was admitted to [facility] initially for hyperkalemia. She has a long [...] a stresstest around 2 years ago at [facility] which was normal per patient. Here, her [...] discharge. Documented By: Irena Haro MD 11/25/24 152 Signed By: 11/25/24 1530 [facility]04-07-2025 Nuclear medicine Diagnostic study [facility] [place] [address] [place] [address] Nuclear Medicine Report Signed Patient: Aislinn Wheeler MR#: [id number] : 1960 Acct:[id number] Age/Sex: 64 / F ADM Date: 5 Loc: Room: [address] [place] [address] Type: ADM IN Attending Dr: Demian Dorantes [...] Irena Haro M.D.11/25/2024 3:24 PM Dictation Location: [place] [address] Transcribed By: AMEE 11/25/24 1524 Dictated By: Irena Haro MD 11/25/24 1523 Signed By: 11/25/24 [facility] Work Phone: 1(256) 405-544704-07-2025 Progress note Author Akin [facility] Note Date/Time November 25, 2024 12:4 2pm [facility] [address] [place] [address] Nephrology Progress Note Signed Patient: Aislinn Wheeler MR#: [id number] : 1960 Acct:[id number] Age/Sex: 64 / F Adm Date: 5 Loc: Room: [address] [place] [address] Type: ADM IN Attending Dr: Demian Dorantes [...] She was initially following with Dr. Lisa olvera locally andwas given a few detox injection but has no improvement. [facility] she was advised to have a major surgery that she opted against it. She reported now she is referred to the [facility] by her PCP. Patient has a CKD [...] 10 Mg Tablet) 10 mg PO DAILY [facility] Stop: 11/24/25 08:59 Last Admin: 11/25/24 09:10 Dose: Not Given Atorvastatin Calcium (Atorvastatin 20 Mg Tablet) 20 mg PO DAILY [facility] Stop: 11/24/25 08:59 Last Admin: 11/25/24 09:02 Dose: 20 mg Dextrose (Dextrose 50% In Water 25 Gm/50 Ml Syringe) 0 gm IV-PUSH PRN PRN PRN Reason: Hypoglycemia Stop: 11/24/25 02:41 Ergocalciferol (Ergocalciferol 1,250 Mcg (50,000 Units) Capsule) 1,250 mcg PO Mo@0900 [facility] Stop: 12/02/25 08:59 Ferrous Sulfate (Ferrous Sulfate 324 Mg Tablet.Dr) 324 mg PO DAILY [facility] Stop: 11/24/25 08:59 Last Admin: 11/25/24 09:02 Dose: 324 mg Fluticasone Propionate (Fluticasone Propionate Creston 120 Creston/16 Gm Bottle) 2 spray INTRANASAL DAILY PRN PRN Reason: nasal congestion Stop: 11/23/25 18:54 Glucose (Dextrose 40% Gel 15 Gm Tube) 0 gm PO PRN PRN PRN Reason: Hypoglycemia Stop: 11/24/25 02:41 Heparin Sodium (Porcine) (Heparin 5,000 Unit/Ml Vial) 5,000 unit SUBCUT Q12HR [facility] Stop: 11/23/25 20:59 Last Admin: 11/25/24 09:02 Dose: 5,000 unit Hydralazine HCl (Hydralazine 20 Mg/Ml Vial) 10 mg IV-PUSH Q6H PRN PRN Reason: if SBP > 185 Stop: 11/23/25 18:48 Last Admin: 11/24/24 11:05 Dose: 10 mg Sodium Bicarbonate 150 meq/ (Sterile Water) 1,150 mls @ 75 mls/hr IV .[id number] [facility] Stop: 11/23/25 18:59 Last Admin: 11/24/24 21:18 Dose: 75 mls/hr Ampicillin Sodium/Sulbactam Sodium (Unasyn) 3 gm in 100 mls @ 200 mls/hr IV Q12H [facility] Last Admin: 11/24/24 20:37 Dose: 200 mls/hr Insulin Aspart (Insulin Aspart 300 Units/3 Ml) 0 units SUBCUT TID.WITH.MEALS [facility]; Protocol Stop: 11/24/25 07:59 Last Admin: 11/25/24 09:11 Dose: Not Given Insulin Aspart (Insulin Aspart 300 Units/3 Ml) 0 units SUBCUT TID.WM.HS [facility]; Protocol Stop: 11/24/25 07:59 Last Admin: 11/25/24 09:11 Dose: Not Given Insulin Glargine (Insulin Glargine 300 Units/3 Ml Insuln.Pen) 28 units SUBCUT QHS [facility] Stop: 11/23/25 21:59 Last Admin: 11/24/24 21:59 Dose: 28 units Loratadine (Loratadine 10 Mg Tablet) 10 mg PO DAILY PRN PRN Reason: allergy symptoms Stop: 11/23/25 20:59 Metoprolol Succinate (Metoprolol Succinate 50 Mg Tab.Er.24h) 50 mg PO DAILY [facility] Stop: 11/25/25 08:59 Last Admin: 11/25/24 09:03 Dose: Not Given Nitroglycerin (Nitroglycerin 0.4 Mg Tab.Subl) 0.4 mg SUBLINGUAL Q5M PRN PRN Reason: chest pain Stop: 11/23/25 18:54 Ondansetron HCl (Ondansetron Odt 4 Mg Tab.Rapdis) 4 mg PO Q8HR PRN PRN Reason: nausea and vomiting Stop: 11/23/25 18:54 Pantoprazole Sodium (Pantoprazole 40 Mg Tablet.Dr) 40 mg PO DAILY [facility] Stop: 11/24/25 08:59 Last Admin: 11/25/24 09:02 Dose: 40 mg Pregabalin (Pregabalin 150 Mg Capsule) 150 mg PO Q8HR [facility] Stop: 05/22/25 21:59 Last Admin: 11/25/24 06:47 [...] Raf Potter M.D.11/24/2024 2:48 PM Dictation Location: [place] [address] Any impression(s) listed above is documentation that [...] She follows with the urology outpatient at [facility]. (5) Neurogenic bladder: Assessment/Problem Details: She has a neurogenic bladder and was seen by the urology at [facility]. She was recommended to have a surgical intervention but opted against this. She is referred to now urogynecologist at [facility] for second opinion. (6) Diabetes: Assessment/Problem Details: [...] <Electronically signed by MD Akin Dougherty> 11/25/24 1242 [facility] Work Phone: 1(122) 953-821404-07-2025 [place] [address] Nephrology Progress Note Signed Patient: Aislinn Wheeler MR#: [id number] : 1960 Acct:[id number] Age/Sex: 64 / F Adm Date: 5 Loc: Room: 8H9519-5 Type: ADM IN Attending Dr: Demian Dorantes [...] has no improvement. [facility] she was advised to have a major surgery that she opted against it. She reported now she is referred to the [facility] by her PCP. Patient has a CKD [...] 10 Mg Tablet) 10 mg PO DAILY [facility] Stop: 11/24/25 08:59 Last Admin: 11/25/24 09:10 Dose: Not Given Atorvastatin Calcium (Atorvastatin 20 Mg Tablet) 20 mg PO DAILY [facility] Stop: 11/24/25 08:59 Last Admin: 11/25/24 09:02 Dose: 20 mg Dextrose (Dextrose 50% In Water 25 Gm/50 Ml Syringe) 0 gm IV-PUSH PRN PRN PRN Reason: Hypoglycemia Stop: 11/24/25 02:41 Ergocalciferol (Ergocalciferol 1,250 Mcg (50,000 Units) Capsule) 1,250 mcg PO Mo@0900 [facility] Stop: 12/02/25 08:59 Ferrous Sulfate (Ferrous Sulfate 324 Mg Tablet.Dr) 324 mg PO DAILY [facility] Stop: 11/24/25 08:59 Last Admin: 11/25/24 09:02 Dose: 324 mg Fluticasone Propionate (Fluticasone Propionate Creston 120 Creston/16 Gm Bottle) 2 spray INTRANASAL DAILY PRN [...] Water) 1,150 mls @ 75 mls/hr IV .[id number] [facility] Stop: 11/23/25 18:59 Last Admin: 11/24/24 21:18 Dose: 75 mls/hr Ampicillin Sodium/Sulbactam Sodium (Unasyn) 3 gm in 100 mls @ 200 mls/hr IV Q12H [facility] Last Admin: 11/24/24 20:37 Dose: 200 mls/hr Insulin Aspart (Insulin Aspart 300 Units/3 Ml) 0 units SUBCUT TID.WITH.MEALS [facility]; Protocol Stop: 11/24/25 07:59 Last Admin: 11/25/24 09:11 Dose: Not Given Insulin Aspart (Insulin Aspart 300 Units/3 Ml) 0 units SUBCUT TID.WM.HS [facility]; Protocol Stop: 11/24/25 07:59 Last Admin: 11/25/24 09:11 Dose: Not Given Insulin Glargine (Insulin Glargine 300 Units/3 Ml Insuln.Pen) 28 units SUBCUT QHS [facility] Stop: 11/23/25 21:59 Last Admin: 11/24/24 21:59 Dose: 28 units Loratadine (Loratadine 10 Mg Tablet) 10 mg PO DAILY PRN PRN Reason: allergy symptoms Stop: 11/23/25 20:59 Metoprolol Succinate (Metoprolol Succinate 50 Mg Tab.Er.24h) 50 mg PO DAILY [facility] Stop: 11/25/25 08:59 Last Admin: 11/25/24 09:03 Dose: Not Given Nitroglycerin (Nitroglycerin 0.4 Mg Tab.Subl) 0.4 mg SUBLINGUAL Q5M PRN PRN Reason: chest pain Stop: 11/23/25 18:54 Ondansetron HCl (Ondansetron Odt 4 Mg Tab.Rapdis) 4 mg PO Q8HR PRN PRN Reason: nausea and vomiting Stop: 11/23/25 18:54 Pantoprazole Sodium (Pantoprazole 40 Mg Tablet.Dr) 40 mg PO DAILY [facility] Stop: 11/24/25 08:59 Last Admin: 11/25/24 09:02 Dose: 40 mg Pregabalin (Pregabalin 150 Mg Capsule) 150 mg PO Q8HR [facility] Stop: 05/22/25 21:59 Last Admin: 11/25/24 06:47 [...] Raf Potter M.D.11/24/2024 2:48 PM Dictation Location: [place] [address] Any impression(s) listed above is documentation that [...] She follows with the urology outpatient at [facility]. (5) Neurogenic bladder: Assessment/Problem Details: She has a neurogenic bladder and was seen by the urology at [facility]. She was recommended to have a surgical intervention but opted against this. She is referred to now urogynecologist at [facility] for second opinion. (6) Diabetes: Assessment/Problem Details: [...] MD 11/25/24 1233 Signed By: 11/25/24 1242 [facility] [facility]25 History and physical note Author Diane Smith [facility] Note Date/Time November 24, 2024 5:58 pm [facility] EN[facility] [address] [place] [address] Hospitalist H&P Signed Patient: Aislinn Wheeler MR#: [id number] : 1960 Acct:[id number] Age/Sex: 64 / F Adm Date: 5 Loc: Room: [address] [place] [address] Type: ADM IN Attending Dr: Diane Smith MD Copies to: Agusto Olmstead NP-C Diane Smith MD~ HPI DATE OF EXAMINATION: 11/23/24 CHIEF COMPLAINT: Called from PCP to come for further workup HISTORY OF PRESENT ILLNESS: This is a 64 y.o female with past medical history of type 2 diabetes with nephropathy and neuropathy, CKD Stage IV, low capacity overactive bladder with straight cathing twice a day, follows with [facility] urology and was seenby our urology service [...] her right foot stuck there, Dr. Chilel Manager Title could not remove it in the office, [...] negative unless noted below or in HPI COUNT INCLUDES THE [facility] Medical History Hypertension CKD (chronic kidney [...] % (Auto) 37.2 % (.) 11/23/24 16:51 Irion % (Auto) 6.9 % (.) 11/23/24 16:51 Eos % (Auto) 3.1 % (.) 11/23/24 16:51 Baso % (Auto) 1.0 % (.) 11/23/24 16:51 Nucleat RBC Rel Count 0.1 /100 WBC (0-0.5) 11/23/24 16:51 Neut # (Auto) 3.3 x10E3/uL (1.8-7.7) 11/23/24 16:51 Lymph # (Auto) 2.4 x10E3/uL (1.00-4.8) 11/23/24 16:51 Irion # (Auto) 0.4 x10E3/uL (0.0-0.8) 11/23/24 16:51 [...] pH 6.0 (5.0-9.0) 11/23/24 16:11 Ur Specific [place] 1.010 (1.001-1.030) 11/23/24 16:11 Urine Protein 100 [...] 9 pm -Spoke to Dr. Mcmullen, Cardiology sap solution manager consultant, showed him the EKG x1 that was [...] Diane Smith MD 11/23/24 1827 Signed By: <Electronically signed by Diane mSith MD> 11/24/24 1758 [facility] Work Phone: 1(662) 368-358004-06-2025 Progress note Author Irena Schuster [facility] Note Date/Time November 24, 2024 5:58 pm [facility] EN[facility] [address] [place] [address] Hospitalist Progress Note Signed Patient: Aislinn Wheeler MR#: [id number] : 1960 Acct:[id number] Age/Sex: 64 / F Adm Date: 5 Loc: Room: [address] [place] [address] Type: ADM IN Attending Dr: Diane Smith [...] 09:00 11/24/24 09:21 Ferrous Sulfate 324 Mg Tablet.Dr PO 11/24/25 08:59 324 mg DAILY UZIEL Administration Fluticasone Propionate 2 spray 11/23/24 18:55 Fluticasone Propionate Creston 120 Creston/16 Gm Bottle INTRANASAL 11/23/25 18:54 DAILY PRN [...] Sterile Water IV 11/23/25 18:59 75 mls/hr .[id number] [facility] Administration Ampicillin Sodium/Sulbactam Sodium 3 gm in 100 mls @ 200 mls/hr 11/23/24 20:30 11/23/24 23:10 Unasyn IV 200 mls/hr Q12H UZIEL Administration Insulin Aspart 0 units 11/24/24 08:00 Insulin Aspart 300 Units/3 Ml SUBCUT 11/24/25 07:59 TID.WITH.MEALS [facility] Protocol Insulin Aspart 0 units 11/24/24 08:00 Insulin Aspart 300 Units/3 Ml SUBCUT 11/24/25 07:59 TID.WM.HS [facility] Protocol Insulin Glargine 28 units 11/23/24 22:00 [...] Chloride 0.9 % 10 Ml Syringe IV-PUSH 04/05/26 18:14 Not Given Q8H UZIEL A&P - [...] <Electronically signed by Diane Smith MD> 11/24/24 2765 [facility] Work Phone: [phone] [place] [address] Hospitalist H&P Signed Patient: Aislinn Wheeler MR#: [id number] : 1960 Acct:[id number] Age/Sex: 64 / F Adm Date: 5 Loc: Room: [address] [place] [address] Type: ADM IN Attending Dr: Diane Smith MD Copies to: Agusto Olmstead, PHOSPHORIC ACID OPERATOR-C Diane Smith MD~ HPI DATE OF EXAMINATION: 11/23/24 CHIEF COMPLAINT: Called from PCP to come for further workup HISTORY OF PRESENT ILLNESS: This is a 64 y.o female with past medical history of type 2 diabetes with nephropathy and neuropathy, CKD Stage IV, low capacity overactive bladder with straight cathing twice a day, follows with [facility] urology and was seenby our urology service [...] in her right foot stuck there,Dr. Chilel Manager Title could not remove it in the office, [...] negative unless noted below or in HPI COUNT INCLUDES THE [facility] Medical History Hypertension CKD (chronic kidney [...] % (Auto) 37.2 % (.) 11/23/24 16:51 Irion % (Auto) 6.9 % (.) 11/23/24 16:51 Eos % (Auto) 3.1 % (.) 11/23/24 16:51 Baso % (Auto) 1.0 % (.) 11/23/24 16:51 Nucleat RBC Rel Count 0.1 /100 WBC (0-0.5) 11/23/24 16:51 Neut # (Auto) 3.3 x10E3/uL (1.8-7.7) 11/23/24 16:51 Lymph # (Auto) 2.4 x10E3/uL (1.00-4.8) 11/23/24 16:51 Irion # (Auto) 0.4 x10E3/uL (0.0-0.8) 11/23/24 16:51 [...] pH 6.0 (5.0-9.0) 11/23/24 16:11 Ur Specific [place] 1.010 (1.001-1.030) 11/23/24 16:11 Urine Protein 100 [...] 9 pm -Spoke to Dr. Mcmullen, Cardiology sap solution manager consultant, showed him the EKG x1 that was [...] MD 11/23/24 1827 Signed By: 11/24/24 1758 [facility]04-06-2025 [place] [address] Hospitalist Progress Note Signed Patient: Aislinn Wheeler MR#: [id number] : 1960 Acct:[id number] Age/Sex: 64 / F Adm Date: 5 Loc: Room: [address] [place] [address] Type: ADM IN Attending Dr: Diane Smith [...] Propionate 2 spray 11/23/24 18:55 Fluticasone Propionate Creston 120 Creston/16 Gm Bottle INTRANASAL 11/23/25 18:54 DAILY PRN [...] Sterile Water IV 11/23/25 18:59 75 mls/hr .[id number] UZIEL Administration Ampicillin Sodium/Sulbactam Sodium 3 gm in 100 mls @ 200 mls/hr 11/23/24 20:30 11/23/24 23:10 Unasyn IV 200 mls/hr Q12H UZIEL Administration Insulin Aspart 0 units 11/24/24 08:00 Insulin Aspart 300 Units/3 Ml SUBCUT 11/24/25 07:59 TID.WITH.MEALS [facility] Protocol Insulin Aspart 0 units 11/24/24 08:00 Insulin Aspart 300 Units/3 Ml SUBCUT 11/24/25 07:59 TID.WM.HS [facility] Protocol Insulin Glargine 28 units 11/23/24 22:00 [...] prophylaxis, heparin GI prophylaxis?pantoprazole Documented By: Irena Schuster, ASHVIN 11/24/24 1010 Signed By: 11/24/24 1300 11/24/24 1758 [facility]04-06-2025 Consult note Author Galo Mcmullen [facility] Note Date/Time November 24, 2024 2:54 pm [facility] [address] [place] [address] Cardiology Consult Note Signed Patient: Aislinn Wheeler MR#: [id number] : 1960 Acct:[id number] Age/Sex: 64 / F Adm Date: 5 Loc: Room: [address] [place] [address] Type: ADM IN Attending Dr: Diane Smith MD Copies to: MD Agusto Rose, PHOSPHORIC ACID OPERATOR-C Diane Smith MD~ Cardiology HPI History of Present Illness Consult Date: 11/24/24 Reason for Consult: Chest pain HPI: Ms. Wheeler is a 64 year old female who was admitted to [facility] initially for hyperkalemia. She has a long [...] stress test around 2 years ago at [facility] which was normal per patient. Here, her EKG shows nonspecific T wave changes and troponin x 3 negative. She cannot exercise on a treadmill dueto severe diabetic neuropathy and prior amputation of left great toe. Review of Systems Review of Systems All other systems reviewed & are negative unless noted below or in HPI COUNT INCLUDES THE [facility] Medical History Hypertension CKD (chronic kidney [...] Lymph # (Auto) 2.4 2.6 (1.00-4.8) x10E3/uL Irion # (Auto) 0.4 0.4 (0.0-0.8) x10E3/uL Eos [...] ml @ 999 mls/hr IV .Q31M ONE Rx#:[id number] cefTRIAXone 1GM-*NS* 1 gm In 50 50 / 50 ml @ 100 mls/hr IV ONCE ONE Rx #:[id number] Oral 200 / 200 Output: Urine Amount [...] Galo Mcmullen MD 02/12 1008 Signed By: <Electronically signed by Galo Mcmullen MD> 11/24/24 4130 [facility] Work Phone: [phone]) [phone] Consult note Author Cory Angeles [facility] Note Date/Time November 24, 2024 12:5 7pm [facility] [address] [place] [address] Podiatry Consult Note Signed Patient: Aislinn Wheeler MR#: [id number] : 1960 Acct:[id number] Age/Sex: 64 / F Adm Date: 5 Loc: Room: [address] [place] [address] Type: ADM IN Attending Dr: Diane Smith MD Copies to: Agusto Olmstead, PHOSPHORIC ACID OPERATOR-C MD Cory Chi, DPM~ HPI Data of Consult Consult Date: [...] arthralgias noted secondary to RA and lupus COUNT INCLUDES THE [facility] Medical History Hypertension CKD (chronic kidney [...] underlying condition with diabetic polyneuropathy; 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 Cory Angeles and recommend make appointment for patient upon discharge. Will order radiographs at this time and no further intervention at this time Documented By: Cory Angeles DPM 11/24/24 3777 Signed By: <Electronically signed by OLIVIA Angeles> 11/24/24 2921 [facility] Work Phone: [phone]) 233-222604-06-2025 [place] [address] Cardiology Consult Note Signed Patient: Aislinn Wheeler MR#: [id number] : 1960 Acct:[id number] Age/Sex: 64 / F Adm Date: 5 Loc: Room: [address] [place] [address] Type: ADM IN Attending Dr: Diane Smith MD Copies to: MD Agusto Rose, PHOSPHORIC ACID OPERATOR-C Diane Smith MD~ Cardiology HPI History of Present Illness Consult Date: 11/24/24 Reason for Consult: Chest pain HPI: Ms. Wheeler is a 64 year old female who was admitted to [facility] initially for hyperkalemia. She has a long [...] a stresstest around 2 years ago at [facility] which was normal per patient. Here, her EKG shows nonspecific T wave changes and troponin x 3 negative. She cannot exercise on a treadmill dueto severe diabetic neuropathy and prior amputation of left great toe. Review of Systems Review of Systems All other systems reviewed & are negative unless noted below or in HPI COUNT INCLUDES THE [facility] Medical History Hypertension CKD (chronic kidney [...] Lymph # (Auto) 2.4 2.6 (1.00-4.8) x10E3/uL Irion # (Auto) 0.4 0.4 (0.0-0.8) x10E3/uL Eos [...] ml @ 999 mls/hr IV .Q31M ONE Rx#:[id number] cefTRIAXone 1GM-*NS* 1 gm In 50 50 / 50 ml @ 100 mls/hr IV ONCE ONE Rx #:[id number] Oral 200 / 200 Output: Urine Amount [...] Mcmullen MD 02/12 1008 Signed By: 11/24/24 1454 [facility]04-06-2025 Consult note Author Tyler Valencia [facility] Note Date/Time November 24, 2024 12:1 5pm [facility] [address] [place] [address] Nephrology Consult Note Signed Patient: Aislinn Wheeler MR#: [id number] : 1960 Acct:[id number] Age/Sex: 64 / F Adm Date: 5 Loc: Room: [address] [place] [address] Type: ADM IN Attending Dr: Diane Smith MD Copies to: MD Agusto Marks, PHOSPHORIC ACID OPERATOR-C Diane Smith MD~ Providers Consult Date: 11/24/24 Requesting Provider: Diane Smith MD Primary Care Provider: Agusto Olmstead [facility] Reason for Consult: ANATOLIY on CKD, hyperkalemia [...] no improvement. She was referred to the [facility] and reported that she was advised to have a major surgery she opted against it. She reported now she is referred to the [facility] by her PCP. Patient has a CKD [...] polydipsia Dermatological: denies any itching or rash COUNT INCLUDES THE [facility] Medical History (Updated 11/24/24 @ 12:05 [...] 20 Mg Tablet) 20 mg PO DAILY [facility] Stop: 11/24/25 08:59 Last Admin: 11/24/24 09:21 Dose: 20 mg Dextrose (Dextrose 50% In Water 25 Gm/50 Ml Syringe) 0 gm IV-PUSH PRN PRN PRN Reason: Hypoglycemia Stop: 11/24/25 02:41 Ergocalciferol (Ergocalciferol 1,250 Mcg (50,000 Units) Capsule) 1,250 mcg PO Mo@0900 [facility] Stop: 12/02/25 08:59 Ferrous Sulfate (Ferrous Sulfate 324 Mg Tablet.Dr) 324 mg PO DAILY [facility] Stop: 11/24/25 08:59 Last Admin: 11/24/24 09:21 Dose: 324 mg Fluticasone Propionate (Fluticasone Propionate Creston 120 Creston/16 Gm Bottle) 2 spray INTRANASAL DAILY PRN PRN Reason: nasal congestion Stop: 11/23/25 18:54 Glucose (Dextrose 40% Gel 15 Gm Tube) 0 gm PO PRN PRN PRN Reason: Hypoglycemia Stop: 11/24/25 02:41 Heparin Sodium (Porcine) (Heparin 5,000 Unit/Ml Vial) 5,000 unit SUBCUT Q12HR [facility] Stop: 11/23/25 20:59 Last Admin: 11/24/24 09:21 Dose: 5,000 unit Hydralazine HCl (Hydralazine 20 Mg/Ml Vial) 10 mg IV-PUSH Q6H PRN PRN Reason: if SBP > 185 Stop: 11/23/25 18:48 Sodium Bicarbonate 150 meq/ (Sterile Water) 1,150 mls @ 75 mls/hr IV .[id number] [facility] Stop: 11/23/25 18:59 Last Admin: 11/23/24 23:10 Dose: 75 mls/hr Ampicillin Sodium/Sulbactam Sodium (Unasyn) 3 gm in 100 mls @ 200 mls/hr IV Q12H [facility] Last Admin: 11/23/24 23:10 Dose: 200 mls/hr Insulin Aspart (Insulin Aspart 300 Units/3 Ml) 0 units SUBCUT TID.WITH.MEALS [facility]; Protocol Stop: 11/24/25 07:59 Insulin Aspart (Insulin Aspart 300 Units/3 Ml) 0 units SUBCUT TID.WM.HS [facility]; Protocol Stop: 11/24/25 07:59 Insulin Glargine (Insulin Glargine 300 Units/3 Ml Insuln.Pen) 28 units SUBCUT QHS [facility] Stop: 11/23/25 21:59 Last Admin: 11/23/24 23:11 [...] 40 Mg Tablet.Dr) 40 mg PO DAILY [facility] Stop: 11/24/25 08:59 Last Admin: 11/24/24 09:21 Dose: 40 mg Pregabalin (Pregabalin 150 Mg Capsule) 150 mg PO Q8HR [facility] Stop: 05/22/25 21:59 Last Admin: 11/24/24 06:48 Dose: 150 mg Sodium Chloride (Sodium Chloride 0.9 % 10 Ml Syringe) 0 ml IV-PUSH PRN PRN PRN Reason: Flush Stop: 11/23/25 15:07 Sodium Chloride (Sodium Chloride 0.9 % 10 Ml Syringe) 10 ml IV-PUSH Q8H [facility] Stop: 11/23/25 18:14 Last Admin: 11/24/24 07:05 [...] Skin: No rashes , warm to touch COMPLIANCE MGR: Awake,Alert, following simple command Musculoskeletal: No swelling or limitation of movement of the large joints Psychiatric: Cooperative, normal mood and affect Results - Nephrology Labs 11/24/24 05:14 11/24/24 05:14 Labs: 11/23/24 11/23/24 11/23/24 16:11 16:51 20:52 BUN 55 H 54 H Creatinine 2.62 H 2.46 H Phosphorus Albumin 3.4 L Urine Color Colorless Urine Appearance Clear Urine pH 6.0 Ur Specific [place] 1.010 Urine Protein 100 H Urine Glucose (UA) 500 H Urine Ketones Negative Urine Occult Blood Negative Urine Nitrite Negative Ur Leukocyte Esterase 2+ H Urine RBC 1-2 Urine WBC 5-9 H Urine Bacteria None seen 11/24/24 05:14 BUN 52 H Creatinine 2.37 H Phosphorus 3.9 Albumin 2.9 L Urine Color Urine Appearance Urine pH Ur Specific [place] Urine Protein Urine Glucose (UA) Urine Ketones Urine Occult Blood Urine Nitrite Ur Leukocyte Esterase Urine RBC Urine WBC Urine Bacteria Radiology Impressions Impressions - last 24 hours: Impressions Chest X-Ray 11/23/24 16:16 IMPRESSION: CARDIOMEGALY. NO ACUTE PLEURAL-PARENCHYMAL DISEASE. Impression dictated by: Raf Potter M.D.11/23/2024 4:55 PM Dictation Location: [facility] Abdomen/Pelvis CT 11/23/24 18:09 IMPRESSION: Severe bilateral [...] Raf Potter M.D.11/23/2024 6:50 PM Dictation Location: [facility] Foot X-Ray 11/23/24 18:45 IMPRESSION: 7 mm radiopaque foreign body noted. No definite periosteal reactionor subcutaneous emphysema. Impression dictated by: Raf Potter M.D.11/24/2024 8:07 AM Dictation Location: [place] [address] Any impression(s) listed above is documentation that [...] She follows with the urology outpatient at [facility]. (5) Neurogenic bladder: Assessment/Problem Details: She has a neurogenic bladder and was seen by the urology at [facility]. She was recommended to have a surgical intervention but opted against this. She is referred to now urogynecologist at [facility] for second opinion. (6) Diabetes: Assessment/Problem Details: [...] any question. Documented By: Tyler Valencia MD 11/24/24 0922 Signed By: <Electronically signed by Tyler Valencia MD> 11/24/24 1215 [facility] Work Phone: 1(165) 368-155804-06-2025 [place] [address] Podiatry Consult Note Signed Patient: Aislinn Wheeler MR#: [id number] : 1960 Acct:[id number] Age/Sex: 64 / F Adm Date: 5 Loc: Room: [address] [place] [address] Type: ADM IN Attending Dr: Diane Smith MD Copies to: Agusto Olmstead, PHOSPHORIC ACID OPERATOR-C MD Cory Chi DPM~ HPI Data [...] arthralgias noted secondary to RA and lupus COUNT INCLUDES THE [facility] Medical History Hypertension CKD (chronic kidney [...] underlying condition with diabetic polyneuropathy; 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 Cory menon make appointment for patient upon discharge. Will order radiographs at this time and no further intervention at this time Documented By: Cory Angeles DPM 11/24/24 1247 Signed By: 11/24/[address] [place], [place] 7909704-06-2025 [place] [address] Nephrology Consult Note Signed Patient: Aislinn Wheeler MR#: [id number] : 1960 Acct:[id number] Age/Sex: 64 / F Adm Date: 5 Loc: Room: [address] [place] [address] Type: ADM IN Attending Dr: Diane Smith MD Copies to: MD Agusto Marks, PHOSPHORIC ACID OPERATOR-C Diane Smith MD~ Providers Consult Date: 11/24/24 Requesting Provider: Diane Smith MD Primary Care Provider: Agusto Olmstead [facility] Reason for Consult: ANATOLIY on CKD, hyperkalemia [...] no improvement. She was referred to the [facility] and reported that she was advised to have a major surgery she opted against it. She reported now she is referred to the [facility] by her PCP. Patient has a CKD [...] polydipsia Dermatological: denies any itching or rash COUNT INCLUDES THE [facility] Medical History (Updated 11/24/24 @ 12:05 [...] 10 Mg Tablet) 10 mg PO DAILY [facility] Stop: 11/24/25 08:59 Last Admin: 11/24/24 09:21 Dose: 10 mg Atorvastatin Calcium (Atorvastatin 20 Mg Tablet) 20 mg PO DAILY [facility] Stop: 11/24/25 08:59 Last Admin: 11/24/24 09:21 Dose: 20 mg Dextrose (Dextrose 50% In Water 25 Gm/50 Ml Syringe) 0 gm IV-PUSH PRN PRN PRN Reason: Hypoglycemia Stop: 11/24/25 02:41 Ergocalciferol (Ergocalciferol 1,250 Mcg (50,000 Units) Capsule) 1,250 mcg PO Mo@0900 [facility] Stop: 12/02/25 08:59 Ferrous Sulfate (Ferrous Sulfate 324 Mg Tablet.Dr) 324 mg PO DAILY [facility] Stop: 11/24/25 08:59 Last Admin: 11/24/24 09:21 Dose: 324 mg Fluticasone Propionate (Fluticasone Propionate Creston 120 Creston/16 Gm Bottle) 2 spray INTRANASAL DAILY PRN PRN Reason: nasal congestion Stop: 11/23/25 18:54 Glucose (Dextrose 40% Gel 15 Gm Tube) 0 gm PO PRN PRN PRN Reason: Hypoglycemia Stop: 11/24/25 02:41 Heparin Sodium (Porcine) (Heparin 5,000 Unit/Ml Vial) 5,000 unit SUBCUT Q12HR [facility] Stop: 11/23/25 20:59 Last Admin: 11/24/24 09:21 Dose: 5,000 unit Hydralazine HCl (Hydralazine 20 Mg/Ml Vial) 10 mg IV-PUSH Q6H PRN PRN Reason: if SBP > 185 Stop: 11/23/25 18:48 Sodium Bicarbonate 150 meq/ (Sterile Water) 1,150 mls @ 75 mls/hr IV .[id number] [facility] Stop: 11/23/25 18:59 Last Admin: 11/23/24 23:10 Dose: 75 mls/hr Ampicillin Sodium/Sulbactam Sodium (Unasyn) 3 gm in 100 mls @ 200 mls/hr IV Q12H [facility] Last Admin: 11/23/24 23:10 Dose: 200 mls/hr Insulin Aspart (Insulin Aspart 300 Units/3 Ml) 0 units SUBCUT TID.WITH.MEALS [facility]; Protocol Stop: 11/24/25 07:59 Insulin Aspart (Insulin Aspart 300 Units/3 Ml) 0 units SUBCUT TID.WM.HS [facility]; Protocol Stop: 11/24/25 07:59 Insulin Glargine (Insulin Glargine 300 Units/3 Ml Insuln.Pen) 28 units SUBCUT QHS [facility] Stop: 11/23/25 21:59 Last Admin: 11/23/24 23:11 [...] 40 Mg Tablet.Dr) 40 mg PO DAILY [facility] Stop: 11/24/25 08:59 Last Admin: 11/24/24 09:21 Dose: 40 mg Pregabalin (Pregabalin 150 Mg Capsule) 150 mg PO Q8HR [facility] Stop: 05/22/25 21:59 Last Admin: 11/24/24 06:48 Dose: 150 mg Sodium Chloride (Sodium Chloride 0.9 % 10 Ml Syringe) 0 ml IV-PUSH PRN PRN PRN Reason: Flush Stop: 11/23/25 15:07 Sodium Chloride (Sodium Chloride 0.9 % 10 Ml Syringe) 10 ml IV-PUSH Q8H [facility] Stop: 11/23/25 18:14 Last Admin: 11/24/24 07:05 [...] Skin: No rashes , warm to touch COMPLIANCE MGR: Awake,Alert, following simple command Musculoskeletal: No swelling or limitation of movement of the large joints Psychiatric: Cooperative, normal mood and affect Results - Nephrology Labs 11/24/24 05:14 11/24/24 05:14 Labs: 11/23/24 11/23/24 11/23/24 16:11 16:51 20:52 BUN 55 H 54 H Creatinine 2.62 H 2.46 H Phosphorus Albumin 3.4 L Urine Color Colorless Urine Appearance Clear Urine pH 6.0 Ur Specific [place] 1.010 Urine Protein 100 H Urine Glucose (UA) 500 H Urine Ketones Negative Urine Occult Blood Negative Urine Nitrite Negative Ur Leukocyte Esterase 2+ H Urine RBC 1-2 Urine WBC 5-9 H Urine Bacteria None seen 11/24/24 05:14 BUN 52 H Creatinine 2.37 H Phosphorus 3.9 Albumin 2.9 L Urine Color Urine Appearance Urine pH Ur Specific [place] Urine Protein Urine Glucose (UA) Urine Ketones Urine Occult Blood Urine Nitrite Ur Leukocyte Esterase Urine RBC Urine WBC Urine Bacteria Radiology Impressions Impressions - last 24 hours: Impressions Chest X-Ray 11/23/24 16:16 IMPRESSION: CARDIOMEGALY. NO ACUTE PLEURAL-PARENCHYMAL DISEASE. Impression dictated by: Raf Potter M.D.11/23/2024 4:55 PM Dictation Location: [facility] Abdomen/Pelvis CT 11/23/24 18:09 IMPRESSION: Severe bilateral [...] Raf Potter M.D.11/24/2024 8:07 AM Dictation Location: [place] [address] Any impression(s) listed above is documentation that [...] She follows with the urology outpatient at [facility]. (5) Neurogenic bladder: Assessment/Problem Details: She has a neurogenic bladder and was seen by the urology at [facility]. She was recommended to have a surgical intervention but opted against this. She is referred to now urogynecologist at [facility] for second opinion. (6) Diabetes: Assessment/Problem Details: [...] Tyler Valencia MD 11/24/24921 Signed By: 11/24/24 1215 [facility]04-05-2025 Evaluation note* Diagnosis Onset Date Resolution Status Admit Date Anemia of renal disease acute A pril 2024 6:09pm CKD stage 3b, GFR 30-44 [...] November 23, 2024 6:09pm Hyperkalemia resolved November 23, 2 025 6:09pm Hypertensive emergency resolved Ap 2024 6:09pm Diabetes deleted November 23 6:09pm [facility] Work Phone: 1(610) [phone] Radiology Diagnostic study [facility] [place] [address] CT Scan Report Signed Patient: Aislinn Wheeler MR#: [id number] : 1960 Acct:[id number] Age/Sex: 64 / F ADM Date: 5 Loc: Room: [address] [place] [address] Type: ADM IN Attending Dr: Diane Smith [...] Raf Potter M.D.11/23/2024 6:50 PM Dictation Location: [place] [address] Transcribed By: [facility] 11/23/241849 Dictated By: Raf Potter MD 11/23/241838 Signed By: 11/23/241849 [facility] Work Phone: [phone] History of Present illness Narrative* Agusto Olmstead [...] is contraindicated. She does not see a [facility] specialist.Eye exam is current. SUBJECTIVE: MEDICATIONS: Current Outpatient Medications Medication Instructions amLODIPine (NORVASC) 10 mg, Oral, Daily atorvastatin (LIPITOR) 20 mg, Oral, Nightly cephalexin (KEFLEX) 500 mg, Oral, 2 times daily cetirizine (ZYRTEC) 10 mg, Oral, Daily Continuous Glucose Change Management Administrator (Dexcom G7 Change Management Administrator) device 1 each, Does not apply, Daily [...] (LASIX) 40 mg, 2 times daily HYDROcodone-acetaminophen ([place]) 7.5-325 MG tablet 1 tablet, 3 times [...] of left great toe (CMS/HCC) Cervical cancer ([facility]/HCC) 10/11/2023 had Hysterectomy Charcot's joint of foot, left 10/11/2023 Chronic kidney disease, stage III (moderate) (HCC) ([facility] [facility] 10/11/2023 Fatty liver 10/11/2023 History of hysterectomy [...] of nail of digit of hand Osteoporosis ([facility]) 10/11/2023 Post-menopausal 10/11/2023 Rheumatoid arthritis ([facility]) 10/11/2023 RSD (reflex sympathetic dystrophy) 10/11/2023 Type 2 diabetes mellitus with diabetic neuropathy, unspecified whether long-term insulin use ([facility]) 10/11/2023 Visual impairment 10/11/2023 HAD BILATERAL CATARCT [...] with long-term current use of insulin (CMS/HCC) Check blood sugars daily, notify if <70 [...] Ambulatory referral to Urogynecology Essential (primary) hypertension (CMS/HCC) Please check blood [...] neuropathy, with long-term current use of insulin ([facility]) Recommend freq foot checks, proper fitting shoes [...] Urogynecology Chronic kidney disease, stage 4 (severe) ([facility]) Long standing uncontrolled HTN and DM Multiple attempts to get pt to specialists, does not follow through She is established with local Field Administrative Assistant Goal: bp and DM control, although there again her compliance with blood sugar checking is difficult. 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 ([facility]) Non compliance w medication regimen Difficulty with follow ups, taking all meds and getting to all appts Now has pt advocate, Reyes Canela Right foot pain FB X2 noted on [...] affiliated with activity Will refer to [facility] Relevant Orders Ambulatory referral to Cardiology * [...] appts Now has pt advocate, Reyes Canela * Agusto Olmstead NP - 11/18/2024 6:29 AM EDTAssociated Problem(s): Type 2 diabetes mellitus with hyperglycemia, with long-term current use of insulin ([facility]) Check blood sugars daily, notify if <70 [...] Problem(s): Chronic kidney disease, stage 4 (severe) ([facility]) Long standing uncontrolled HTN and DM Multiple attempts to get pt to specialists, does not follow through She is established with local Field Administrative Assistant Goal: bp and DM control, although there again her compliance with blood sugar checking is difficult. She has been referred to local area Endo and Canned Food Reconditioning Inspector, but does not go to her appts as scheduled and has been discharged, and does not appear to have a strong support system * Agusto Olmstead NP - 11/18/2024 6:27 AM EDTAssociated Problem(s): Essential (primary) hypertension (CMS/HCC) Please check [...] pain mgmt for this documented in this encounterResearch Belton [id number] Instructions* Patient Instructions* Agusto Olmstead NP - 11/18/2024 10:30 AM EDT Blood pressure: We are going to change the dose on the amlodipine to 10mg once day. Follow up in 3 week for blood pressure check, continue the metoprolol at current dose I am going to re [facility] [place], for your chest pain I will also send a referral to Dr Baez (uro/case consultant) documented in this encounterResearch Belton [id number] Miscellaneous Notes* Telephone Encounter - Barbara Lucero RN - 11/15/2024 7:42 AM EDT Error on Madison prescription. Two different fill dates listed. This is a corrected RX. Previously printed Madison RX signed today voided. documented in this encounterGalion Hospital03-28-2025 Telephone encounter Note* Telephone Encounter - Barbara Lucero RN - 11/15/2024 7:42 AM EDT Error on Madison prescription. Two different fill dates listed. This is a corrected RX. Previously printed Madison RX signed today voided. [facility]03-27-[facility]25 Miscellaneous Notes* Telephone Encounter - Lila Che RN - 11/14/2024 11:31 AM EDT Last Office Visit: 09/29/2024 Next Office Visit: 01/08/2025 Last Urine Drug Screen:04/24/2024 Lab Results Component Value Date BENZOSCRN Negative 08/09/2023 OARRS appropriate documented in this encounterGalion Hospital03-27-2025 Telephone encounter Note* Telephone Encounter - Lila Che RN - 11/14/2024 11:31 AM EDT Last Office Visit: 09/29/2024 Next Office Visit: 01/08/2025 Last Urine Drug Screen:04/24/2024 Lab Results Component Value Date BENZOSCRN Negative 08/09/2023 OARRS appropriate [facility]03-06-[facility]25 Miscellaneous Notes* Telephone Encounter - Asia [...] here half day tomorrow. documented in this encounterGalion Hospital03-06-2025 Telephone encounter Note* Telephone Encounter - Asia Barreto RN - 10/24/2024 12:19 PM EST Last Office Visit: 10/09/2024 Next Office Visit: 01/08/2025 Last Urine Drug Screen: Lab Results Component Value Date BENZOSCRN Negative 08/09/2023 OARRS appropriate [facility] [id number] Telephone encounter Note* Telephone Encounter - Asia Barreto RN - 10/24/2024 12:19 PM EST Barbara, pt fill date is tomorrow, she is requesting a call as soon as Dr Miranda signs her prescriptions. She is aware we will be here half day tomorrow. [facility] [employer] [id number] Miscellaneous Notes* Telephone Encounter - Yesenia Burnett RN - 10/10/2024 12:26 PM EST Last OV: 10/09/2024 Next OV: 01/08/2025 OARRS appropriate: yes Last UDS: 04/24/2024 Pharm[facility]: [facility] documented in this encounterUniversity Of Vermont Medical CenterTrendU [id number] Telephone encounter Note* Telephone Encounter - Yesenia Burnett RN - 10/10/2024 12:26 PM EST Last OV: 10/09/2024 Next OV: 01/08/2025 OARRS appropriate: yes Last UDS: 04/24/2024 Pharmacy: [facility] [employer] [id number] History of Present illness Narrative* Sweta Ch PA-C - 10/09/2024 11:15 AM EST [facility] [address] [place] [address] Patient: Aislinn Wheeler Sex: female : 1960 Age: 64 y.o. PCP: AGUSTO OLMSTEAD, ASHVIN-MANAGER CONTROL 10/09/2024 Aislinn Wheeler is here for a(n) follow up for bilateral arm pain due to her [facility] [employer] [facility] work injury. She reports she is [...] on cart, cold/heat). Treatments tried: Tizanidine, Lyrica,Gabapentin, Madison, Elevation, NSAIDs x 2 (Ibuprofen, Aleve), Flexeril, BioFreeze, Immobilization w/min relief, Celebrex & compound cream w/no relief, Rt Stellate Ganglion NB w/mod relief. The treatment provided moderate relief. The effect of pain on patient's ADLS: Moderate Impairment. Past Medical History: Diagnosis Date Arthritis RHEUMATOID Arthritis OSTEOARTHRITIS Asthma At risk for UTI related to indwelling catheter Broken toes 08/2022 Bronchitis [place] UTERINE Chronic kidney disease 2015 stage 3 per pt 04/05/23 COVID-19 virus infection 09/28/2021 Diabetes mellitus [place] Fibromyalgia GERD (gastroesophageal reflux disease) History of degenerative disc disease Hypertension Joint pain Lupus Mitral valve prolapse Osteoarthritis Pneumonia released from hospital on 11/12/21 RSD (reflex sympathetic dystrophy) Stroke [place] Past Surgical History: Procedure Laterality Date AMPUTATION OF REPLICATED TOES Left 06/2022 ANKLE SURGERY CATARACT EXTRACTION, BILATERAL Bilateral 03/22 and 04/13 CHOLECYSTECTOMY HYSTERECTOMY INJECTION BLOCK NERVE STELLATE GANGLION NECK Right 03/15/2024 Performed by Zackery Miranda MD at [facility] INJECTION BLOCK NERVE STELLATE GANGLION NECK Right 10/13/2023 Performed by Zackery Miranda MD at [facility] INJECTION BLOCK NERVE STELLATE GANGLION NECK Right 12/23/2022 Performed by Zackery Miranda MD at [facility] INJECTION BLOCK NERVE STELLATE GANGLION NECK Right 05/06/2022 Performed by Zackery Miranda MD at [facility] INJECTION BLOCK NERVE STELLATE GANGLION NECK Right 10/15/2021 Performed by Zackery Miranda MD at [facility] INJECTION BLOCK STELLATE GANGLION N/A 02/17/2017 Performed by Zackery Miranda MD at [facility] INJECTION BLOCK STELLATE GANGLION NECK Right 06/18/2018 Performed by Zackery Miranda MD at [facility] INJECTION BLOCK STELLATE GANGLION NECK N/A 05/15/2017 Performed by Zackery Miranda MD at [facility] INJECTION BLOCK STELLATE GANGLION NECK Right Right 05/22/2020 Performed by Zackery Miranda MD at [facility] INJECTION BLOCK STELLATE GANGLION NECK Right N/A 10/04/2019 Performed by Zackery Miranda MD at [facility] INJECTION BLOCK STELLATE GANGLION NECK Right Right 05/10/2019 Performed by Zackery Miranda MD at [facility] INJECTION BLOCK STELLATE GANGLION NECK Right Right 12/31/2018 Performed by Zackery Miranda MD at [facility] INJECTION BLOCK STELLATE GANGLION NECK Right Right 10/09/2017 Performed by Zackery Miranda MD at [facility] KNEE SURGERY REMOVAL STIMULATOR SPINAL CORD N/A 12/29/2017 Performed by Zackery Miranda MD at [facility] SHOULDER SURGERY Allergies Allergen Reactions Latex [...] Resource Strain: Medium Risk (10/11/2023) Received from [facility] Overall Financial Resource Strain (CARDIA) Difficulty of Paying Living Expenses: Somewhat hard Food Insecurity: No Food Insecurity (10/09/2024) Hunger Screening Food Insecurity - Worry: Never True Food Insecurity - Inability: Never True Transportation Needs: No Transportation Needs (10/11/2023) Received from [facility] PRAPARE - Transportation Lack of Transportation (Medical): No Lack of Transportation (Non-Medical): No Physical Activity: Inactive (10/11/2023) Received from [facility] Exercise Vital Sign Days of Exercise per Week: 0 days Minutes of Exercise per Session: 0 min Stress: Stress Concern Present (10/11/2023) Received from [facility] [employer] Occupational Health - Occupational Stress Questionnaire Feeling of Stress : Very much Social Connections: Socially Isolated (10/11/2023) Received from [facility] Social Connection and Isolation Panel [NHANES] Frequency of Communication with Friends and Family: More than three times a week Frequency of Social Gatherings with Friends and Family: More than three times a week Attends Sikhism Services: Never Active Member of Clubs or Organizations: No Attends Club or Organization Meetings: Never Marital Status: Interpersonal Safety: Unknown (10/12/2023) Received from [facility] Safety & Environment Fear of Current or Ex-Partner: Not on file Emotionally Abused: Not on file Physically Abused: Not on file Sexually Abused: Not on file Physically or Sexually Abused: Not on file Housing Instability: Low Risk (10/11/2023) Received from [facility] Housing Stability Vital Sign Unable to [...] type 1 of right upper extremity Continue Madison 5/325 mg TID PRN and Lyrica 150 [...] medication that requires intensive monitoring for toxicity Madison and Lyrica. OARRS and most recent UDS were reviewed, discussed and appropriate for medications prescribed. Madison pill count completed at today's office visit. [...] who performed the above service. Provider Statement: SWETA Humphries PA-C, personally performed the services described in the documentation, as scribed by Agusto Gray CNA in my presence, and it is both accurate and complete. Agusto Gray CNA 10/09/24 1241 Sweta Ch PA-C 10/09/24 1306 documented in this encounterGalion Hospital01-24-2025 Miscellaneous Notes* Telephone Encounter - Barbara Lucero RN - 09/13/2024 11:56 AM EST Last OV: 07/03/24 Next OV: 10/09/24 OARRS appropriate: Yes Last UDS: 04/24/24 Pharmacy: [facility] Patient requested Lyrica refill as well. OARRS states last time filled was 07/26/24. Spoke with pharmacy who confirms that was the last time it was filled. TC to patient to see if she has been taking,she confirms she has, she has additional pills in another bottle. Advised she needs to call the pharmacy for a refill, PVU. documented in this encounterGalion Hospital01-24-2025 Telephone encounter Note* Telephone Encounter - Barbara Lucero RN - 09/13/2024 11:56 AM EST Last OV: 07/03/24 Next OV: 10/09/24 OARRS appropriate: Yes Last UDS: 04/24/24 Pharmacy: [facility] Patient requested Lyrica refill as well. OARRS states last time filled was 07/26/24. Spoke with pharmacy who confirms that was the last time it was filled. TC to patient to see if she has been taking,she confirms she has, she has additional pills in another bottle. Advised she needs to call the pharmacy for a refill, PVU. [facility]01-22-[facility] History of Present illness Narrative* PADMAJA SULLIVAN - 09/11/2024 11:00 AM EST Pt is feeling weak, eyes are blurry and cloudy (could just be her eyes) * Agusto Olmstead NP - 09/11/2024 11:00 AM EST Images from the original note were not included. Aislinn Wheeler is a 64 y.o. female presents with chief complaint of Hypertension HPI: Recent hospitalization at [facility], d/t CKD, and HTN, sent [...] t aken. She does not see a [facility] specialist.Eye exam is not current. SUBJECTIVE: MEDICATIONS: Current [...] test strip 4 times daily use HYDROcodone-acetaminophen (Madison) 7.5-325 MG tablet 1 tablet, 3 times [...] of left great toe (CMS/HCC) Cervical cancer ([facility]) 10/11/2023 had Hysterectomy Charcot's joint of foot, left 10/11/2023 Chronic kidney disease, stage III (moderate) (HCC) (CMS/HCC) 10/11/2023 Fatty liver 10/11/2023 History of hysterectomy 10/11/2023 Cervical cancer Hyperkalemia Hyponatremia Leakage of urine from ureter Lupus Memory impairment of gradual onset MOCA: 26/30 on 12/20/22 Mitral valve prolapse 10/11/2023 Multiple [...] of nail of digit of hand Osteoporosis ([facility]) 10/11/2023 Post-menopausal 10/11/2023 Rheumatoid arthritis ([facility]) 10/11/2023 RSD (reflex sympathetic dystrophy) 10/11/2023 Type 2 diabetes mellitus with diabetic neuropathy, unspecified whether long-term insulin use ([facility]) 10/11/2023 Visual impairment 10/11/2023 HAD BILATERAL CATARCT [...] hyperglycemia, with long-term current use of insulin ([facility]) Check blood sugars daily, notify if <70 [...] her bolus insulin Relevant Medications Continuous Glucose Change Management Administrator (Dexcom G7 Change Management Administrator) device Continuous Glucose Sensor (Dexcom G7 Sensor) misc insulin glargine (Lantus) 100 UNIT/ML injection Neurogenic bladder Essential (primary) hypertension (CMS/HCC) Please check blood [...] neuropathy, with long-term current use of insulin ([facility]) Reports increase in neuropathy symptoms, is on lyrica at 150mg TID, also takes percocet for RSD Relevant Medications Continuous Glucose Change Management Administrator (Dexcom G7 Change Management Administrator) device Continuous Glucose Sensor (Dexcom G7 Sensor) misc insulin glargine (Lantus) 100 UNIT/ML injection Malignant neoplasm of cervix uteri, unspecified ([facility]) - Primary Had hyst Rheumatoid arthritis, unspecified ([facility]) Does not follow with Rheumatology Chronic kidney disease, stage 4 (severe) ([facility]) Long standing uncontrolled HTN and DM Multiple attempts to get pt to specialists, does not follow through She is established with local Field Administrative Assistant, it is of note that in the last week she was admitted [facility] for elevated kidney function and potassium, med adjustments as well. Urged pt to please continue to follow with Nephrology Goal: bp and DM control, although there again her compliance with blood sugar checking is difficult. 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 ([facility]) Relevant Medications Continuous Glucose Change Management Administrator (Dexcom G7 Change Management Administrator) device Continuous Glucose Sensor (Dexcom G7 Sensor) misc * Agusto Olmstead NP - 09/11/2024 7:10 AM ESTAssociated Problem(s): Rheumatoid arthritis, unspecified ([facility]) Does not follow with Rheumatology * Agusto Olmstead NP - 09/11/2024 7:10 AM ESTAssociated Problem(s): Type 2 diabetes mellitus with hyperglycemia, with long-term current use of insulin ([facility]) Check blood sugars daily, notify if <70 [...] Problem(s): Chronic kidney disease, stage 4 (severe) (CMS/[facility]) Long standing uncontrolled HTN and DM Multiple attempts to get pt to specialists, does not follow through She is established with local Field Administrative Assistant, it is of note that in the last week she was admitted [facility] for elevated kidney function and potassium, med adjustments as well. Urged pt to please continue to follow with Nephrology Goal: bp and DM control, although there again her compliance with blood sugar checking is difficult. She has been referred to local area Endo and Canned Food Reconditioning Inspector, but does not go to her appts as scheduled and has been discharged, and does not appear to have a strong support system * Agusto Olmstead NP - 09/11/2024 7:09 AM ESTAssociated Problem(s): Essential (primary) hypertension ([facility]) Please check blood pressure daily and record [...] neuropathy, with long-term current use of insulin ([facility]) Reports increase in neuropathy symptoms, is on lyrica at 150mg TID, also takes percocet for RSD documented in this encounterResearch Belton [id number] Instructions* Patient Instructions* Agusto Olmstead NP - 09/11/2024 11:00 AM EST Start your furosemide 40mg prescription at the pharmacy this should help your blood pressure and high potassium We have referral for Gynecology/Urolgist: I will give you a number for this Dr Kristen Domínguez: [phone] this is for your bladder , [facility] please call this office to schedule Also a referral to [facility] Honey Producer you need to call and set you up they tried to call you noresponse: [phone] Diabetes: I ordered continuous glucose monitor: Dexcom 7, 2 parts to this the sensor (change it every 10 days) and reader (insurance pays for this once every 5 years) Area on you lung we need to look at with PET scan slow growing want to make sure no cancer, probably will be done at [facility] or [facility] I need to do some checking documented in this encounterResearch Belton [id number] Miscellaneous Notes* Telephone Encounter - Heidy Belcher CMA - 09/09/2024 10:58 AM EST PHOSPHORIC ACID OPERATOR REFERRAL [facility]O CARLOS - CHEST PAIN, UNSPECIFIED TYPE - PHONED PT AND LM ON VM TO CALL OFFICE TO SCHED APPT - 08/28/24 JSL LMOM TO SCHED PHOSPHORIC ACID OPERATOR [facility] 09-02-24 LMOM TO CALL AND SET UP PHOSPHORIC ACID OPERATOR APPT [facility]; LETTER MAILED TO PT 09/09/24 JSL documented in this encounterGalion Hospital01-20-2025 Telephone encounter Note* Telephone Encounter - Heidy Belcher CMA - 09/09/2024 10:58 AM EST PHOSPHORIC ACID OPERATOR REFERRAL AGUSTO CARLOS - CHEST PAIN, UNSPECIFIED TYPE - PHONED PT AND LM ON VM TO CALL OFFICE TO SCHED APPT - 08/28/24 JSL LMOM TO SCHED PHOSPHORIC ACID OPERATOR APPT [facility] 09-02-24 LMOM TO CALL AND SET UP PHOSPHORIC ACID OPERATOR APPT [facility]; LETTER MAILED TO PT 09/09/24 JSL [facility]01-19-20[place] [address] Nephrology Progress Note Signed Patient: Aislinn Wheeler MR#: [id number] : 1960 Acct:[id number] Age/Sex: 64 / F Adm Date: 5 Loc: Room: 7B8999-9 Type: ADM IN Attending Dr: Gilmer Tai [...] complex cystic mass on the kidney at [facility] in 2023.. Patient is known to have neurogenic bladder she uses self cath at home for quitesome time however recently she ran out of supplies. Patient was seen by Dr. Sprague in the office on 115 and had creatinine was found to be 2.7 mg/dL much higher than previous baseline, potassium 5.8 and blood pressure 210/110. Initi ally she went to the [facility] on 09/04 and she had a [...] Patient was called again to come to [facility] as her potassium continues to be elevated [...] will continue straight cath and follow-up with [facility]. Exam Physical Exam Vital Signs: Temp Pulse [...] Bitart/Acetaminophen (Hydrocodone/Acetaminophen 7.5-325mg Tablet) 1tab PO Q8HR [facility] Last Admin: 09/08/24 06:08 Dose: 1 tab Atorvastatin Calcium (Atorvastatin 20 Mg Tablet) 20 mg PO DAILY [facility] Stop: 09/07/25 08:59 Last Admin: 09/08/24 08:45 Dose: 20 mg Bethanechol Chloride (Bethanechol 10 Mg Tablet) 10 mg PO TID [facility] Stop: 09/07/25 13:59 Last Admin: 09/08/24 08:44 Dose: 10 mg Dextrose (Dextrose 50% In Water 25 Gm/50 Ml Syringe) 0 gm IV-PUSH PRN PRN PRN Reason: Hypoglycemia Stop: 09/05/25 22:01 Enoxaparin Sodium (Enoxaparin 30 Mg/0.3 Ml Syringe) 30 mg SUBCUT DAILY@1000 [facility] Stop: 09/06/25 09:59 Last Admin: 09/07/24 09:07 Dose: 30 mg Furosemide (Furosemide 40 Mg Tablet) 40 mg PO BID@0800,1600 [facility] Stop: 09/06/25 15:59 Last Admin: 09/08/24 08:44 Dose: 40 mg Glucose (Dextrose 40% Gel 15 Gm Tube) 0 gm PO PRN PRN PRN Reason: Hypoglycemia Stop: 09/05/25 22:01 Hyoscyamine (Hyoscyamine Sulfate 0.125 Mg Tab.Rapdis) 0.125 mg SUBLINGUAL Q4H PRN PRN Reason: Bladder Spasms Stop: 09/06/25 02:45 Last Admin: 09/06/24 20:42 Dose: 0.125 mg Insulin Aspart (Insulin Aspart 300 Units/3 Ml) 0 units SUBCUT TID..[facility]; Protocol Stop: 09/06/25 07:59 Last Admin: 09/08/24 08:45 Dose: Not Given Insulin Glargine (Insulin Glargine 300 Units/3 Ml Insuln.Pen) 28 units SUBCUT QHS [facility] Stop: 09/06/25 21:59 Last Admin: 09/07/24 21:16 Dose: 28 units Metoprolol Succinate (Metoprolol Succinate 50 Mg Tab.Er.24h) 50 mg PO DAILY [facility] Stop: 09/06/25 08:59 Last Admin: 09/08/24 08:45 Dose: 50 mg Oxycodone/Acetaminophen (Oxycodone/Acetaminophen 5-325 Mg Tablet) 1 tab PO Q4H PRN PRN Reason: Pain Scale 4 - 7 Last Admin: 09/06/24 10:18 Dose: 1 tab Pregabalin (Pregabalin 75 Mg Capsule) 75 mg PO BID [facility] Stop: 03/05/25 20:59 Last Admin: 09/08/24 08:52 Dose: 75 mg Sodium Bicarbonate (Sodium Bicarbonate 650 Mg Tablet) 650 mg PO TID [facility] Stop: 09/06/25 19:59 Last Admin: 09/08/24 08:45 [...] where applicable. A&P - Nephrology Assessment/Plan (1) ANATLOIY (acute kidney injury): Assessment/Problem Details: She had elevated creatinine higher than the baseline with evidence of bilateral hydronephrosis and hydroureter on the CT scan of the abdomen that was done at [facility] on 05/05. Renal ultrasound on 09/06/2024 showed [...] stated that she follow-up with urology at [facility] as well. * Continue sodium bicarb 650 [...] also advised to follow-up with urology in [facility] forlong-term plan of neurogenic bladder. Patient was informed that she may need urostomy. Documented By: Akin Dougherty MD 09/08/24 1138 Signed By: 09/08/24 1142 [facility]01-18-2025 Progress note Author Abhishek Castañeda [facility] Note Date/Time September 07, 2024 3 :39pm [facility] ENTER [address] [place] [address] Urology Progress Note Signed Patient: Aislinn Wheeler MR#: [id number] : 1960 Acct:[id number] Age/Sex: 64 / F Adm Date: 5 Loc: Room: [address] [place] [address] Type: ADM IN Attending Dr: Gilmer Tai [...] % (Auto) 65.6, Lymph % (Auto) 24.8, Irion % (Auto) 6.2, Eos % (Auto) 2.9, Baso % (Auto) 0.5, Nucleat RBC Rel Count 0.1, Neut # (Auto) 5.4, Lymph # (Auto) 2.0, Irion # (Auto) 0.5, Eos # (Auto) 0.2, [...] % (Auto) 74.5, Lymph % (Auto) 19.0, Irion % (Auto) 4.4, Eos % (Auto) 1.3, Baso % (Auto) 0.8, Nucleat RBC Rel Count 0.0, Neut # (Auto) 10.0 H, Lymph # (Auto) 2.5, Irion # (Auto) 0.6, Eos # (Auto) 0.2, [...] Cloudy A, Urine pH 6.0, Ur Specific [place] 1.007, Urine Protein 70 H, Urine Glucose [...] % (Auto) 65.6, Lymph % (Auto) 25.0, Irion % (Auto) 5.8, Eos % (Auto) 2.2, Baso % (Auto) 1.4, Nucleat RBC Rel Count 0.1, Neut # (Auto) 5.5, Lymph # (Auto) 2.1, Irion # (Auto) 0.5, Eos # (Auto) 0.2, [...] By: Abhishek Castañeda MD 09/07/241534 Signed By: <Electronically signed by Abhishek Castañeda MD> 09/07/24 1539 [facility] Work Phone: 1(665) 957-553801-18-2025 Progress note Author Gilmer Tai [facility] Note Date/Time September 07, 2024 1 :45pm [facility] ENTER [address] [place] [address] Hospitalist Progress Note Signed Patient: Aislinn Wheeler MR#: [id number] : 1960 Acct:[id number] Age/Sex: 64 / F Adm Date: 5 Loc: Room: [address] [place] [address] Type: ADM IN Attending Dr: Gilmer Tai [...] of care and confirmed it with the resident/student/PHOSPHORIC ACID OPERATOR. Ms. Aislinn Wheeler is a 64 year old female with a PMHx of hypertension, chronic kidney disease, diabetes, restless leg syndrome, rheumatoid arthritis, lupus andfibromyalgia admitted for abnormal lab values after a routine lab check. [facility] was[facility] the [facility] where she was treated for a urinary tract infection and hypokalemia. She had a valerio catheter placed at [facility] that was subsequently removed. After discharge from [facility] on 09/05/24, her binding bench worker recommended she come to this hospital. Today [...] patient Documented By: Gilmer Tai MD 09/07/24 8317 Signed By: <Electronically signed by Gilmer Tai MD> 09/07/24 3556 [facility] Work Phone: 1([phone] 234-302501-18-2025 Progress note Author Gilmer Tai [facility] Note Date/Time September 07, 2024 1 :44pm [facility] EN[facility] [address] [place] [address] Hospitalist Progress Note Signed Patient: Aislinn Wheeler MR#: [id number] : 1960 Acct:[id number] Age/Sex: 64 / F Adm Date: 5 Loc: Room: [address] [place] [address] Type: ADM IN Attending Dr: Gilmer Tai [...] of care and confirmed it with the resident/student/PHOSPHORIC ACID OPERATOR. Ms. Aislinn Wheeler is a 64 year old female with a PMHx of hypertension, Chronic kidney disease, diabetes, restless leg syndrome, rheumatoid arthritis, lupus andfibromyalgia admitted for abnormal lab values after a routine lab check. She wasrecently admitted to the [facility] where she was treated for a urinary tract infection and hypokalemia. She had a valerio catheter placed at [facility] that was subsequently removed. After discharge from [facility] on 09/05/24, her binding bench worker recommended she come to this hospital. Today [...] 40 Mg Tablet PO 09/06/25 15:59 BID@0800,1600 [facility] Glucose 0 gm 09/05/24 22:02 Dextrose 40% Gel 15 Gm Tube PO 09/05/25 22:01 PRN PRN Hypoglycemia Hyoscyamine 0.125 mg 09/06/24 02:46 09/06/24 08:56 Hyoscyamine Sulfate 0.125 Mg Tab.Rapdis SUBLINGUAL 09/06/25 02:45 0.125 mg Q4H PRN Administration Bladder Spasms Sodium Bicarbonate 150 meq/ 1,150 mls @ 100 mls/hr 09/06/24 10:30 Dextrose IV 09/06/24 21:59 .[id number] [facility] Magnesium Sulfate 4 gm in 100 mls @ 25 mls/hr 09/06/24 09:52 09/06/24 10:18 Magnesium Sulf 4 Gm-*Swfi* IV 09/06/24 13:51 25 mls/hr ONCE ONE Administration Insulin Aspart 0 units 09/06/24 08:00 09/06/24 07:53 Insulin Aspart 300 Units/3 Ml SUBCUT 09/06/25 07:59 1 units TID.WM.HS [facility] Administration Protocol Insulin Glargine 28 units 09/06/24 22:00 Insulin Glargine 300 Units/3 Ml Insuln.Pen SUBCUT 09/06/25 21:59 QHS [facility] Metoprolol Succinate 50 mg 09/06/24 09:00 09/06/24 08:56 Metoprolol Succinate 50 Mg Tab.Er.24h PO 09/06/25 08:59 50 mg DAILY UZIEL Administration Non-Formulary Medication 1 sliding scale dose 09/06/24 11:30 Insulin Lispro SUBCUT 09/06/25 11:29 AC [facility] Oxycodone/Acetaminophen 1 tab 09/05/24 21:58 09/06/24 10:18 Oxycodone/Acetaminophen 5-325 Mg Tablet PO 1 tab Q4H PRN Administration Pain Scale 4 - 7 Pregabalin 75 mg 09/06/24 21:00 Pregabalin 75 Mg Capsule PO 03/05/25 20:59 BID [facility] Sodium Bicarbonate 650 mg 09/06/24 20:00 Sodium Bicarbonate 650 Mg Tablet PO 09/06/25 19:59 TID [facility] Sodium Chloride 0 ml 09/05/24 17:17 09/06/24 [...] signed by Gilmer Tai MD> 09/07/24 1344 [facility] Work Phone: 1([phone] 410-698301-18-2025 [place] [address] Urology Progress Note Signed Patient: Aislinn Wheeler MR#: [id number] : 1960 Acct:[id number] Age/Sex: 64 / F Adm Date: 5 Loc: Room: [address] [place] [address] Type: ADM IN Attending Dr: Gilmer Tai [...] % (Auto) 65.6, Lymph % (Auto) 24.8, [place]ion % (Auto) 6.2, Eos % (Auto) 2.9, Baso % (Auto) 0.5, Nucleat RBC Rel Count 0.1, Neut # (Auto) 5.4, Lymph # (Auto) 2.0, Irion # (Auto) 0.5, Eos # (Auto) 0.2, [...] % (Auto) 74.5, Lymph % (Auto) 19.0, [place]ion % (Auto) 4.4, Eos % (Auto) 1.3, Baso % (Auto) 0.8, Nucleat RBC Rel Count 0.0, Neut # (Auto) 10.0 H, Lymph # (Auto) 2.5, [place] # (Auto) 0.6, Eos # (Auto) 0.2, [...] Cloudy A, Urine pH 6.0, Ur Specific [place] 1.007, Urine Protein 70 H, Urine Glucose [...] % (Auto) 65.6, Lymph % (Auto) 25.0, [place] % (Auto) 5.8, Eos % (Auto) 2.2, Baso % (Auto) 1.4, Nucleat RBC Rel Count 0.1, Neut # (Auto)5.5, Lymph # (Auto) 2.1, Irion # (Auto) 0.5, Eos # (Auto) 0.2, [...] reviewed [facility] records and pt follow w [facility] for long hx small capacity [...] Castañeda MD 09/07/241534 Signed By: 09/07/24 1539 [facility]01-18-2025 [place] [address] Hospitalist Progress Note Signed Patient: Aislinn Wheeler MR#: [id number] : 1960 Acct:[id number] Age/Sex: 64 / F Adm Date: Loc: Room: 6G0124-5 Type: ADM IN Attending Dr: Gilmer Tai [...] care and confirmed it with the re sident/student/PHOSPHORIC ACID OPERATOR. Ms. Aislinn Wheeler is a 64 year old female with a PMHx of hypertension, chronic kidney disease, diabetes, restless leg syndrome, rheumatoid arthritis, lupus andfibromyalgia admitted for abnormal lab values after a routine lab check. She wasrecently admitted to the [facility] where she was treated for a urinary tract infection and hypokalemia. She had a valerio catheter placed at [facility] that was subsequently removed. After discharge from [facility] on 09/05/24, her binding bench worker recommended shecome to this hospital. Today Ms. [...] MD 09/07/24 1142 Signed By: 09/07/24 1345 [facility]01-18-2025 [place] [address] Hospitalist Progress Note Signed Patient: Aislinn Wheeler MR#: [id number] : 1960 Acct:[id number] Age/Sex: 64 / F Adm Date: 5 Loc: Room: [address] [place] [address] Type: ADM IN Attending Dr: Gilmer Tai [...] care and confirmed it with the re sident/student/PHOSPHORIC ACID OPERATOR. Ms. Aislinn Wheeler is a 64 year old female with a PMHx of hypertension, Chronic kidney disease, diabetes, restless leg syndrome, rheumatoid arthritis, lupus andfibromyalgia admitted for abnormal lab values after a routine lab check. She wasrecently admitted to the [facility] where she was treated for a urinary tract infection and hypokalemia. She had a valerio catheter placed at [facility] that was subsequently removed. After discharge from [facility] on 09/05/24, her binding bench worker recommended shecome to this hospital. Today Ms. [...] 09/06/24 14:00 Hydrocodone/Acetaminophen 7.5-325mg Tablet PO Q8HR [facility] Atorvastatin Calcium 20 mg 09/07/24 09:00 Atorvastatin 20 Mg Tablet PO 09/07/25 08:59 DAILY [facility] Ceftriaxone Sodium 1 gm 09/06/24 00:30 09/06/24 [...] 40 Mg Tablet PO 09/06/25 15:59 BID@0800,1600 [facility] Glucose 0 gm 09/05/24 22:02 Dextrose 40% Gel 15 Gm Tube PO 09/05/25 22:01 PRN PRN Hypoglycemia Hyoscyamine 0.125 mg 09/06/24 02:46 09/06/24 08:56 Hyoscyamine Sulfate 0.125 Mg Tab.Rapdis SUBLINGUAL 09/06/25 02:45 0.125 mg Q4H PRN Administration Bladder Spasms Sodium Bicarbonate 150 meq/ 1,150 mls @ 100 mls/hr 09/06/24 10:30 Dextrose IV 09/06/24 21:59 .[id number] [facility] Magnesium Sulfate 4 gm in 100 mls [...] MD 09/06/24 1053 Signed By: 09/07/24 1344 [facility]01-18-2025 Progress note Author Robertodella Ladonna [facility] Note Date/Time September 07, 2024 1 1:07am [facility] ENTER [address] [place] [address] Nephrology Progress Note Signed Patient: Aislinn Wheeler MR#: [id number] : 1960 Acct:[id number] Age/Sex: 64 / F Adm Date: 5 Loc: Room: [address] [place] [address] Type: ADM IN Attending Dr: Gilmer Tai [...] complex cystic mass on the kidney at [facility] in 2023.. Patient is known to have neurogenic bladder she uses self cath at home for quitesome time however recently she ran out of supplies. Patient was seen by Dr. Sprague in the office on 115 and had creatinine was found to be 2.7 mg/dL much higher than previous baseline, potassium 5.8 and blood pressure 210/110. Initially she went to the [facility] on 09/04 and she had a [...] Patient was called again to come to [facility] as her potassium continues to be elevated [...] the CT scan that was done at [facility] showed bilateral hydronephrosis and distended urinary bladder. [...] Bitart/Acetaminophen (Hydrocodone/Acetaminophen 7.5-325mg Tablet) 1tab PO Q8HR [facility] Last Admin: 09/07/24 05:03 Dose: 1 tab Atorvastatin Calcium (Atorvastatin 20 Mg Tablet) 20 mg PO DAILY [facility] Stop: 09/07/25 08:59 Last Admin: 09/07/24 08:11 Dose: 20 mg Bethanechol Chloride (Bethanechol 10 Mg Tablet) 10 mg PO TID [facility] Stop: 09/07/25 13:59 Ceftriaxone Sodium (Ceftriaxone 1 Gm/10 Ml Syringe) 1 gm IV-PUSH Q24H [facility] Last Admin: 09/06/24 23:46 Dose: 1 gm Dextrose (Dextrose 50% In Water 25 Gm/50 Ml Syringe) 0 gm IV-PUSH PRN PRN PRN Reason: Hypoglycemia Stop: 09/05/25 22:01 Enoxaparin Sodium (Enoxaparin 30 Mg/0.3 Ml Syringe) 30 mg SUBCUT DAILY@1000 [facility] Stop: 09/06/25 09:59 Last Admin: 09/07/24 09:07 Dose: 30 mg Furosemide (Furosemide 40 Mg Tablet) 40 mg PO BID@0800,1600 [facility] Stop: 09/06/25 15:59 Last Admin: 09/07/24 08:11 Dose: 40 mg Glucose (Dextrose 40% Gel 15 Gm Tube) 0 gm PO PRN PRN PRN Reason: Hypoglycemia Stop: 09/05/25 22:01 Hyoscyamine (Hyoscyamine Sulfate 0.125 Mg Tab.Rapdis) 0.125 mg SUBLINGUAL Q4H PRN PRN Reason: Bladder Spasms Stop: 09/06/25 02:45 Last Admin: 09/06/24 20:42 Dose: 0.125 mg Insulin Aspart (Insulin Aspart 300 Units/3 Ml) 0 units SUBCUT TID.[facility]; Protocol Stop: 09/06/25 07:59 Last Admin: 09/07/24 08:12 Dose: 2 units Insulin Glargine (Insulin Glargine 300 Units/3 Ml Insuln.Pen) 28 units SUBCUT QHS [facility] Stop: 09/06/25 21:59 Last Admin: 09/06/24 21:52 Dose: 28 units Metoprolol Succinate (Metoprolol Succinate 50 Mg Tab.Er.24h) 50 mg PO DAILY [facility] Stop: 09/06/25 08:59 Last Admin: 09/07/24 08:11 Dose: 50 mg Oxycodone/Acetaminophen (Oxycodone/Acetaminophen 5-325 Mg Tablet) 1 tab PO Q4H PRN PRN Reason: Pain Scale 4 - 7 Last Admin: 09/06/24 10:18 Dose: 1 tab Pregabalin (Pregabalin 75 Mg Capsule) 75 mg PO BID UZIEL Stop: 03/05/25 20:59 Last Admin: 09/07/24 08:11 Dose: 75 mg Sodium Bicarbonate (Sodium Bicarbonate 650 Mg Tablet) 650 mg PO TID UZIEL Stop: 09/06/25 19:59 Last Admin: 09/07/24 08:11 [...] Jori Ruiz M.D.09/06/2024 9:48 PM Dictation Location: [place] [address] Any impression(s) listed above is documentation that [...] of the abdomen that was done at [facility] on 05/05. Renal ultrasound on 09/06/2024 showed [...] stated that she follow-up with urology at [facility] as well. * Continue sodium bicarb 650 [...] stay. Documented By: Akin Dougherty MD 09/07/24 1056 Signed By: <Electronically signed by MD Akin Dougherty> 09/07/24 8075 [facility] Work Phone: 1(861) 257-303601-18-[address] [address] Nephrology Progress Note Signed Patient: Aislinn Wheeler MR#: [id number] : 1960 Acct:[id number] Age/Sex: 64 / F Adm Date: 5 Loc: Room: 2M1637-3 Type: ADM IN Attending Dr: Gilmer Tai [...] complex cystic mass on the kidney at [facility] in 2023.. Patient is known to have neurogenic bladder she uses self cath at home for quitesome time however recently she ran out of supplies. Patient was seen by Dr. Sprague in the office on 115 and had creatinine was found to be 2.7 mg/dL much higher than previous baseline, potassium 5.8 and blood pressure 210/110. Initi ally she went to the [facility] ER on 09/04 and she had a [...] Patient was called again to come to [facility] as her potassium continues to be elevated [...] the CT scan that was done at [facility] showed bilateral hydronephrosis and distended urinary bladder. [...] Bitart/Acetaminophen (Hydrocodone/Acetaminophen 7.5-325mg Tablet) 1tab PO Q8HR [facility] Last Admin: 09/07/24 05:03 Dose: 1 tab Atorvastatin Calcium (Atorvastatin 20 Mg Tablet) 20 mg PO DAILY [facility] Stop: 09/07/25 08:59 Last Admin: 09/07/24 08:11 Dose: 20 mg Bethanechol Chloride (Bethanechol 10 Mg Tablet) 10 mg PO TID [facility] Stop: 09/07/25 13:59 Ceftriaxone Sodium (Ceftriaxone 1 Gm/10 Ml Syringe) 1 gm IV-PUSH Q24H [facility] Last Admin: 09/06/24 23:46 Dose: 1 gm Dextrose (Dextrose 50% In Water 25 Gm/50 Ml Syringe) 0 gm IV-PUSH PRN PRN PRN Reason: Hypoglycemia Stop: 09/05/25 22:01 Enoxaparin Sodium (Enoxaparin 30 Mg/0.3 Ml Syringe) 30 mg SUBCUT DAILY@1000 [facility] Stop: 09/06/25 09:59 Last Admin: 09/07/24 09:07 Dose: 30 mg Furosemide (Furosemide 40 Mg Tablet) 40 mg PO BID@0800,1600 [facility] Stop: 09/06/25 15:59 Last Admin: 09/07/24 08:11 [...] 300 Units/3 Ml) 0 units SUBCUT TID.WM.[facility]; Protocol Stop: 09/06/25 07:59 Last Admin: 09/07/24 08:12 Dose: 2 units Insulin Glargine (Insulin Glargine 300 Units/3 Ml Insuln.Pen) 28 units SUBCUT QHS [facility] Stop: 09/06/25 21:59 Last Admin: 09/06/24 21:52 Dose: 28 units Metoprolol Succinate (Metoprolol Succinate 50 Mg Tab.Er.24h) 50 mg PO DAILY [facility] Stop: 09/06/25 08:59 Last Admin: 09/07/24 08:11 Dose: 50 mg Oxycodone/Acetaminophen (Oxycodone/Acetaminophen 5-325 Mg Tablet) 1 tab PO Q4H PRN PRN Reason: Pain Scale 4 - 7 Last Admin: 09/06/24 10:18 Dose: 1 tab Pregabalin (Pregabalin 75 Mg Capsule) 75 mg PO BID [facility] Stop: 03/05/25 20:59 Last Admin: 09/07/24 08:11 Dose: 75 mg Sodium Bicarbonate (Sodium Bicarbonate 650 Mg Tablet) 650 mg PO TID [facility] Stop: 09/06/25 19:59 Last Admin: 09/07/24 08:11 [...] Jori Ruiz M.D.09/06/2024 9:48 PM Dictation Location: [place] [address] Any impression(s) listed above is documentation that [...] of the abdomen that was done at [facility] on 05/05. Renal ultrasound on 09/06/2024 showed [...] stated that she follow-up with urology at [facility] as well. * Continue sodium bicarb 650 [...] MD 09/07/24 1055 Signed By: 09/07/24 1107 [facility]01-17-2025 Radiology Diagnostic study note [facility] Main [place] [address] [place] [address] Ultrasound Report Signed Patient: Aislinn Wheeler MR#: [id number] : 1960 Acct:[id number] Age/Sex: 64 / F ADM Date: 5 Loc: Room: [address] [place] [address] Type: ADM IN Attending Dr: Gilmer Tai [...] Jori Ruiz M.D.09/06/2024 9:48 PM Dictation Location: [place] [address] Tech: Griselda Vital Transcribed By: AMEE 09/06/242147 Dictated By: Jori Ruiz DO 09/06/242145 Signed By: 09/06/242147 [facility]01-17-2025 Consult note Author Akin Dougherty [facility] Note Date/Time September 06, 2024 1 1:16[facility] ENTER [address] [place] [address] Nephrology Consult Note Signed Patient: Aislinn Wheeler MR#: [id number] : 1960 Acct:[id number] Age/Sex: 64 / F Adm Date: 5 Loc: Room: [address] [place] [address] Type: ADM IN Attending Dr: Gilmer Tai MD Copies to: MD Akin Love MD Lisa J Aichholz, PHOSPHORIC ACID OPERATOR-C~ Providers Consult Date: 09/06/24 Requesting Provider: Gilmer Tai MD Primary Care Provider: Agusto Olmstead [facility] Reason for Consult: ANATOLIY on CKD stage [...] complex cystic mass on the kidney at [facility] in 2023.. Patient is known to have neurogenic bladder she uses self cath at home for quitesome time however recently she ran out of supplies. Patient was seen by Dr. Sprague in the office on 115 and had creatinine was found to be 2.7 mg/dL much higher than previous baseline, potassium 5.8 and blood pressure 210/110. Initially she went to the [facility] ER on 09/04 and she had a [...] Patient was called again to come to [facility] as her potassium continues to be elevated [...] and no additional complaints, except as documented COUNT INCLUDES THE [facility] Medical History (Updated 09/06/24 @ 11:09 [...] Bitart/Acetaminophen (Hydrocodone/Acetaminophen 7.5-325mg Tablet) 1tab PO Q8HR [facility] Atorvastatin Calcium (Atorvastatin 20 Mg Tablet) 20 mg PO DAILY [facility] Stop: 09/07/25 08:59 Ceftriaxone Sodium (Ceftriaxone 1 Gm/10 Ml Syringe) 1 gm IV-PUSH Q24H [facility] Last Admin: 09/06/24 01:26 Dose: 1 gm Dextrose (Dextrose 50% In Water 25 Gm/50 Ml Syringe) 0 gm IV-PUSH PRN PRN PRN Reason: Hypoglycemia Stop: 09/05/25 22:01 Enoxaparin Sodium (Enoxaparin 30 Mg/0.3 Ml Syringe) 30 mg SUBCUT DAILY@1000 [facility] Stop: 09/06/25 09:59 Last Admin: 09/06/24 10:18 Dose: 30 mg Furosemide (Furosemide 40 Mg Tablet) 40 mg PO BID@0800,1600 [facility] Stop: 09/06/25 15:59 Glucose (Dextrose 40% Gel 15 Gm Tube) 0 gm PO PRN PRN PRN Reason: Hypoglycemia Stop: 09/05/25 22:01 Hyoscyamine (Hyoscyamine Sulfate 0.125 Mg Tab.Rapdis) 0.125 mg SUBLINGUAL Q4H PRN PRN Reason: Bladder Spasms Stop: 09/06/25 02:45 Last Admin: 09/06/24 08:56 Dose: 0.125 mg Sodium Bicarbonate 150 meq/ (Dextrose) 1,150 mls @ 100 mls/hr IV .[id number] [facility] Stop: 09/06/24 21:59 Magnesium Sulfate (Magnesium Sulf 4 Gm-*Swfi*) 4 gm in 100 mls @ 25 mls/hr IV ONCE ONE Stop: 09/06/24 13:51 Last Admin: 09/06/24 10:18 Dose: 25 mls/hr Insulin Aspart (Insulin Aspart 300 Units/3 Ml) 0 units SUBCUT TID.[facility]; Protocol Stop: 09/06/25 07:59 Last Admin: 09/06/24 07:53 Dose: 1 units Insulin Glargine (Insulin Glargine 300 Units/3 Ml Insuln.Pen) 28 units SUBCUT QHS [facility] Stop: 09/06/25 21:59 Metoprolol Succinate (Metoprolol Succinate 50 Mg Tab.Er.24h) 50 mg PO DAILY UZIEL Stop: 09/06/25 08:59 Last Admin: 09/06/24 08:56 Dose: 50 mg Non-Formulary Medication (Insulin Lispro) 1 sliding scale dose SUBCUT AC [facility] Stop: 09/06/25 11:29 Oxycodone/Acetaminophen (Oxycodone/Acetaminophen 5-325 Mg Tablet) 1 tab PO Q4H PRN PRN Reason: Pain Scale 4 - 7 Last Admin: 09/06/24 10:18 Dose: 1 tab Pregabalin (Pregabalin 75 Mg Capsule) 75 mg PO BID [facility] Stop: 03/05/25 20:59 Sodium Bicarbonate (Sodium Bicarbonate 650 Mg Tablet) 650 mg PO TID UZIEL Stop: 09/06/25 19:59 Sodium Chloride (Sodium Chloride [...] Cloudy A Urine pH 6.0 Ur Specific [place] 1.007 Urine Protein 70 H Urine Glucose [...] of the abdomen that was done at [facility] on 05/05. (2) Uropathy, obstructive: Assessment/Problem Details: [...] Tai Documented By: Akin Dougherty MD 09/06/24 1051 Signed By: <Electronically signed by MD Akin Dougherty> 09/06/24 [facility] Work Phone: 1(450) 747-768501-17-2025 [place] [address] Nephrology Consult Note Signed Patient: Aislinn Wheeler MR#: [id number] : 1960 Acct:[id number] Age/Sex: 64 / F Adm Date: 5 Loc: Room: [address] [place] [address] Type: ADM IN Attending Dr: Gilmer Tai MD Copies to: MD Akin Love MD Lisa J Aichholz, PHOSPHORIC ACID OPERATOR-C~ Providers Consult Date: 09/06/24 Requesting Provider: Gilmer Tai MD Primary Care Provider: Agusto Olmstead [facility] Reason for Consult: ANATOLIY on CKD stage [...] complex cystic mass on the kidney at [facility] in 2023.. Patient is known to have neurogenic bladder she uses self cath at home for quitesome time however recently she ran out of supplies. Patient was seen by Dr. Sprague in the office on 115 and had creatinine was found to be 2.7 mg/dL much higher than previous baseline, potassium 5.8 and blood pressure 210/110. Initi ally she went to the [facility] on 09/04 and she had a [...] Patient was called again to come to [facility] as her potassium continues to be elevated [...] and no additional complaints, except as documented COUNT INCLUDES THE [facility] Medical History (Updated 09/06/24 @ 11:09 [...] Bitart/Acetaminophen (Hydrocodone/Acetaminophen 7.5-325mg Tablet) 1tab PO Q8HR [facility] Atorvastatin Calcium (Atorvastatin 20 Mg Tablet) 20 mg PO DAILY [facility] Stop: 09/07/25 08:59 Ceftriaxone Sodium (Ceftriaxone 1 Gm/10 Ml Syringe) 1 gm IV-PUSH Q24H [facility] Last Admin: 09/06/24 01:26 Dose: 1 gm Dextrose (Dextrose 50% In Water 25 Gm/50 Ml Syringe) 0 gm IV-PUSH PRN PRN PRN Reason: Hypoglycemia Stop: 09/05/25 22:01 Enoxaparin Sodium (Enoxaparin 30 Mg/0.3 Ml Syringe) 30 mg SUBCUT DAILY@1000 [facility] Stop: 09/06/25 09:59 Last Admin: 09/06/24 10:18 Dose: 30 mg Furosemide (Furosemide 40 Mg Tablet) 40 mg PO BID@0800,1600 [facility] Stop: 09/06/25 15:59 Glucose (Dextrose 40% Gel 15 Gm Tube) 0 gm PO PRN PRN PRN Reason: Hypoglycemia Stop: 09/05/25 22:01 Hyoscyamine (Hyoscyamine Sulfate 0.125 Mg Tab.Rapdis) 0.125 mg SUBLINGUAL Q4H PRN PRN Reason: Bladder Spasms Stop: 09/06/25 02:45 Last Admin: 09/06/24 08:56 Dose: 0.125 mg Sodium Bicarbonate 150 meq/ (Dextrose) 1,150 mls @ 100 mls/hr IV .[id number] [facility] Stop: 09/06/24 21:59 Magnesium Sulfate (Magnesium Sulf 4 Gm-*Swfi*) 4 gm in 100 mls @ 25 mls/hr IV ONCE ONE Stop: 09/06/24 13:51 Last Admin: 09/06/24 10:18 Dose: 25 mls/hr Insulin Aspart (Insulin Aspart 300 Units/3 Ml) 0 units SUBCUT TID.WM.[facility] [facility]; Protocol Stop: 09/06/25 07:59 Last Admin: 09/06/24 07:53 Dose: 1 units Insulin Glargine (Insulin Glargine 300 Units/3 Ml Insuln.Pen) 28 units SUBCUT QHS [facility] Stop: 09/06/25 21:59 Metoprolol Succinate (Metoprolol Succinate 50 Mg Tab.Er.24h) 50 mg PO DAILY [facility] Stop: 09/06/25 08:59 Last Admin: 09/06/24 08:56 Dose: 50 mg Non-Formulary Medication (Insulin Lispro) 1 sliding scale dose SUBCUT AC [facility] Stop: 09/06/25 11:29 Oxycodone/Acetaminophen (Oxycodone/Acetaminophen 5-325 Mg Tablet) 1 tab PO Q4H PRN PRN Reason: Pain Scale 4 - 7 Last Admin: 09/06/24 10:18 Dose: 1 tab Pregabalin (Pregabalin 75 Mg Capsule) 75 mg PO BID [facility] Stop: 03/05/25 20:59 Sodium Bicarbonate (Sodium Bicarbonate 650 Mg Tablet) 650 mg PO TID [facility] Stop: 09/06/25 19:59 Sodium Chloride (Sodium Chloride [...] Cloudy A Urine pH 6.0 Ur Specific [place] 1.007 Urine Protein 70 H Urine Glucose [...] of the abdomen that was done at [facility] on 05/05. (2) Uropathy, obstructive: Assessment/Problem Details: [...] Dougherty MD 09/06/24 1056 Signed By: 09/06/24 [facility]6 [facility]01-17-2025 History and physical note Author Alejandro Vallejo [facility] Note Date/Time September 06, 2024 1 2:23am [facility] [address] [place] [address] Hospitalist H&P Signed Patient: Aislinn Wheeler MR#: [id number] : 1960 Acct:[id number] Age/Sex: 64 / F Adm Date: 5 Loc: 3T Room: [address] [place] [address] Type: ADM IN Attending Dr: Alejandro Vallejo MD Copies to: MD Agusto Pabno, PHOSPHORIC ACID OPERATOR-C~ HPI DATE OF EXAMINATION: 09/06/24 CHIEF COMPLAINT: Abnormal labs HISTORY OF PRESENT ILLNESS: Ms. 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 She had a routine appointment yesterday and was asked to get admitted in the hospital for abnormal labs. She went to [facility] whereshe was treated for urinary tract infection and hypokalemia. She was dischargedtoday and checked with her binding bench worker who recommended her to come to this [...] negative unless noted below or in HPI COUNT INCLUDES THE [facility] Medical History (Updated 09/05/24 @ 20:43 [...] % (Auto) 25.0 % (.) 09/05/24 17:56 Irion % (Auto) 5.8 % (.) 09/05/24 17:56 Eos % (Auto) 2.2 % (.) 09/05/24 17:56 Baso % (Auto) 1.4 % (.) 09/05/24 17:56 Nucleat RBC Rel Count 0.1 /100 WBC (0-0.5) 09/05/24 17:56 Neut # (Auto) 5.5 x10E3/uL (1.8-7.7) 09/05/24 17:56 Lymph # (Auto) 2.1 x10E3/uL (1.00-4.8) 09/05/24 17:56 Irion # (Auto) 0.5 x10E3/uL (0.0-0.8) 09/05/24 17:56 [...] pH 6.0 (5.0-9.0) 09/05/24 18:19 Ur Specific [place] 1.007 (1.001-1.030) 09/05/24 18:19 Urine Protein 70 mg/dL (Negative) H 09/05/24 18:19 Urine Glucose (UA) 300 mg/dL (Normal) H 09/05/24 18:19 Urine Ketones Negative (Negative) 09/05/24 18:19 Urine Occult Blood 1+ (Negative) H 09/05/24 18:19 Urine Nitrite Positive (Negative) H 09/05/24 18:19 Urine Bilirubin Negative (Negative) 09/05/24 18: Urine Urobilinogen Normal mg/dL (Normal) 09/05/24 18:19 [...] vitamin D deficiency, diabetes, 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 She went to [facility] where she was treated for urinary tract infection and hypokalemia. She was discharged today and checked with her binding bench worker who recommended her to come to this [...] scale of 1 for history of diabetes -Field Administrative Assistant consulted -May consider urology consult for urine [...] signed by Alejandro Vallejo MD> 09/06/24 0023 [facility] Work Phone: 1(344) 224-419501-17-2025 [place] [address] Hospitalist H&P Signed Patient: Aislinn Wheeler MR#: [id number] : 1960 Acct:[id number] Age/Sex: 64 / F Adm Date: 5 Loc: Room: [address] [place] [address] Type: ADM IN Attending Dr: Alejandro Vallejo MD Copies to: MD Agusto Pabon, PHOSPHORIC ACID OPERATOR-C~ HPI DATE OF EXAMINATION: 09/06/24 CHIEF COMPLAINT: Abnormal labs HISTORY OF PRESENT ILLNESS: Ms. 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 She had a routine appointment yesterday and was asked to get admitted in the hospital for abnormal labs. Shewent to [facility] whereshe was treated for urinary tract infection and hypokalemia. She was dischargedtoday and checked with her binding bench worker who recommended her to come to this [...] negative unless noted below or in HPI COUNT INCLUDES [facility] Medical History (Updated 09/05/24 @ 20:43 [...] % (Auto) 25.0 % (.) 09/05/24 17:56 Irion % (Auto) 5.8 % (.) 09/05/24 17:56 Eos % (Auto) 2.2 % (.) 09/05/24 17:56 Baso % (Auto) 1.4 % (.) 09/05/24 17:56 Nucleat RBC Rel Count 0.1 /100 WBC (0-0.5) 09/05/24 17:56 Neut # (Auto) 5.5 x10E3/uL (1.8-7.7) 09/05/24 17:56 Lymph # (Auto) 2.1 x10E3/uL (1.00-4.8) 09/05/24 17:56 Irion # (Auto) 0.5 x10E3/uL (0.0-0.8) 09/05/24 17:56 [...] pH 6.0 (5.0-9.0) 09/05/24 18:19 Ur Specific [place] 1.007 (1.001-1.030) 09/05/24 18:19 Urine Protein 70 [...] vitamin D deficiency, diabetes, 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 She went to [facility] where she was treated for urinary tract infection and hypokalemia. 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 acute [facility] 2024 11:12am Hyperkalemia acute August 11:12am Hyperparathyroidism acute Janua ry 2024 11:12am Hypertensive nephropathy acute September 04, 2024 11:12am Hypomagnesemia acute September 042024 11:12am Iron deficiency anemia acute [facility] 2024 11:12am Neurogenic bladder acute Jansarita y 2024 11:12am Renal cyst acute September 04, 2024 11:12am Vitamin D deficiency acute 2024 11:12am ANATOLIY (acute kidney injury) acute September 05, 2024 9:58pm History of neurogenic bladder acute September 05, 2024 9:58pm Hyperkalemia acute August 9:58pm Iron deficiency anemia acute [facility] 2024 9:58pm Urinary retention acute September 05, 2024 9:58pm Vitamin D deficiency acute 2024 9:58pm Chronic kidney disease removed [facility] 2024 9:58pm [facility] Work Phone: 1(808) 599-596101-15-2025 Evaluation note* Diagnosis Onset Date Resolution Status Admit Date Anemia of renal disease acute J anuary 2024 11:12am B12 deficiency acute September 042024 11:12am CKD stage 3b, GFR 30-44 ml/min acute September 04, 2024 11:12am 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 acute [facility] 2024 11:12am Hyperkalemia acute August 11:12am Hyperparathyroidism acute 2024 11:12am Hypertensive nephropathy acute September 04, 2024 11:12am Hypomagnesemia acute September 042024 11:12am Iron deficiency anemia acute [facility] 2024 11:12am Neurogenic bladder acute 2024 11:12am Renal cyst acute September 04, 2024 11:12am Vitamin D deficiency acute 2024 11:12am ANATOLIY (acute kidney injury) acute September 05, 2024 9:58pm 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 acute [facility] 2024 9:58pm History of neurogenic bladder acute September 05, 2024 9:58pm Hyperkalemia acute August 9:58pm Hypertensive nephropathy acute September 05, 2024 9:58pm Iron deficiency anemia acute [facility] 2024 9:58pm Metabolic acidosis acute 2024 9:58pm Urinary retention acute September 05, 2024 9:58pm Uropathy, obstructive acute Aug ua2024 9:58pm Vitamin D deficiency acute 2024 9:58pm Chronic kidney disease removed [facility] 2024 9:58pm [facility] Work Phone: 1(490) 374-323401-15-2025 Evaluation note* Diagnosis Onset Date Resolution Status Admit Date Anemia of renal disease acute J anuary 2024 11:12am B12 deficiency acute September 042024 11:12am CKD stage 3b, GFR 30-44 ml/min acute September 04, 2024 11:12am Hyperkalemia acute August 11:12am Hyperparathyroidism acute 2024 11:12am Hypomagnesemia acute September 042024 11:12am Neurogenic bladder acute 2024 11:12am Renal cyst acute September 04, 2024 11:12am 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 resolved [facility] 2024 11:12am Hypertensive nephropathy resolved September 04, 2024 11:12am Iron deficiency anemia resolved [facility] 2024 11:12am Vitamin D deficiency resolved 2024 11:12am ANATOLIY (acute kidney injury) resolved September 05, 2024 9:58pm 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 resolved [facility] 2024 9:58pm History of neurogenic bladder resolv ed September 05, 2024 9:58pm Hyperkalemia resolved August 9:58pm Hypertensive nephropathy resolved September 05, 2024 9:58pm Iron deficiency anemia resolved [facility]2024 9:58pm Metabolic acidosis resolved 2024 9:58pm Urinary retention resolved September 05, 2024 9:58pm Uropathy, obstructive resolved Aug 9:58pm Vitamin D deficiency resolved 2024 9:58pm Chronic kidney disease removed [facility] 2024 9:58pm Acute electrocardiogram changes acut e November 23, 2024 6:09pm Anemia of renal disease acute A pril 2024 6:09pm Chest pain acute November 23 6:09pm CKD stage 3b, GFR 30-44 ml/min acute November 23, 2024 6:09pm Hydroureteronephrosis acute Apr il 2024 6:09pm Hyperkalemia acute November 23, 2 025 6:09pm Hypertensive emergency acute Ap ril 2024 6:09pm Neurogenic bladder acute November 23, 2024 6:09pm Overactive bladder acute November 23, 2024 6:09pm [facility] Work Phone: 1(491) 247-656901-15-2025 Evaluation note* Diagnosis Onset Date Resolution Status Admit Date Anemia of renal disease acute J anuary 2024 11:12am B12 deficiency acute September 042024 11:12am CKD stage 3b, GFR 30-44 ml/min acute September 04, 2024 11:12am Hyperkalemia acute August 11:12am Hyperparathyroidism acute 2024 11:12am Hypomagnesemia acute September 042024 11:12am Neurogenic bladder acute Auguar y 2024 11:12am Renal cyst acute September 04, 2024 11:12am 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 resolved [facility] 2024 11:12am Hypertensive nephropathy resolved September 04, 2024 11:12am Iron deficiency anemia resolved [facility] 2024 11:12am Vitamin D deficiency resolved [facility]2024 11:12am Metabolic acidosis chronic 2024 9:58pm ANATOLIY (acute kidney injury) resolved September 05, 2024 9:58pm 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 resolved [facility] 2024 9:58pm History of neurogenic bladder resolv ed September 05, 2024 9:58pm Hyperkalemia resolved August 9:58pm Hypertensive nephropathy resolved September 05, 2024 9:58pm Iron deficiency anemia resolved [facility] 2024 9:58pm Urinary retention resolved September 05, 2024 9:58pm Uropathy, obstructive resolved [facility] 2024 9:58pm Vitamin D deficiency resolved Brock hussain2024 9:58pm Chronic kidney disease removed [facility] 2024 9:58pm Acute electrocardiogram changes [...] Overactive bladder acute November 23, 2024 6:09pm [facility] Work Phone: 1(566) 716-429101-07-2025 History of Present illness Narrative* Agusto Olmstead [...] stress test and ECHO in 2022 at [facility], no acute ischemic findings Strong risk factors for CAD Will refer to [facility], in [place], has seen Danial in the past * Agusto Olmstead NP - 08/27/2024 3:00 PM ESTAssociated Problem(s): Type 2 diabetes mellitus with hyperglycemia, with long-term current use of insulin ([facility]) Check blood sugars daily, notify if <70 [...] Problem(s): Chronic kidney disease, stage 4 (severe) ([facility]) Long standing uncontrolled HTN and DM Multiple attempts to get pt to specialists, does not follow through She is established with local Field Administrative Assistant Continue to follow Goal: bp and DM control * Agusto Olmstead NP - 08/27/2024 2:57 PM ESTAssociated Problem(s): Essential (primary) hypertension ([facility]) Please check blood pressure daily and record [...] neuropathy, with long-term current use of insulin ([facility]) Reports increase in neuropathy symptoms, is on lyrica at 150mg TID, also takes percocet for RSD At last appt started addition of duloxetine at 20mg daily * PADMAJA SULLIVAN - 08/27/2024 2:20 PM EST Field Administrative Assistant on 09/04 Pt was told she needs to be scheduled with a dental insurance biller she seen one over at [facility] before. Pt would also like another opinion with a urologist [facility] [place] [facility] Blurry vision, dizziness, feel server administrator the face * Agusto Olmstead NP - 08/27/2024 2:20 PM EST Images from the original note were not included. Aislinn Wheeler is a 64 y.o. female presents with chief complaint of Diabetes and Hypertension HPI: Here for fu appt: since last appt was sent to [facility] d/t elevated potassium/kidney function, as well aschest pain and high blood pressure. She was admitted to [facility] a few weeks ago d/t elevated kidney [...] test strip 4 times daily use HYDROcodone-acetaminophen ([place]) 7.5-325 MG tablet 1 tablet, 3 times [...] Diagnosis Date Amputation of left great toe ([facility]) Cervical cancer ([facility]) 10/11/2023 had Hysterectomy Charcot's joint of foot, left 10/11/2023 Chronic kidney disease, stage III (moderate) ([facility]) ([facility]) 10/11/2023 Fatty liver 10/11/2023 History of hysterectomy [...] of nail of digit of hand Osteoporosis ([facility]) 10/11/2023 Post-menopausal 10/11/2023 Rheumatoid arthritis ([facility]) 10/11/2023 RSD (reflex sympathetic dystrophy) 10/11/2023 Type 2 diabetes mellitus with diabetic neuropathy, 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 ([facility]) 10/11/2023 Visual impairment 10/11/2023 HAD BILATERAL CATARCT [...] hyperglycemia, with long-term current use of insulin ([facility]) Check blood sugars daily, notify if <70 [...] Ambulatory referral to Urogynecology Essential (primary) hypertension ([facility]) Please check blood pressure daily and record [...] neuropathy, with long-term current use of insulin ([facility]) - Primary Reports increase in neuropathy symptoms, is on lyrica at 150mg TID, also takes percocet for RSD At last appt started addition of duloxetine at 20mg daily Relevant Orders Basic metabolic panel Continuous leakage of urine Would like a second opinion about need for sling etc Relevant Orders Ambulatory referral to Urogynecology Chronic kidney disease, stage 4 (severe) ([facility]) Long standing uncontrolled HTN and DM Multiple attempts to get pt to specialists, does not follow through She is established with local Field Administrative Assistant Continue to follow Goal: bp and DM control Other chest pain Had stress test and ECHO in 2022 at [facility], no acute ischemic findings Strong risk factors for CAD Will refer to [facility], in [place], has seen Danial in the past Relevant Orders Ambulatory referral to Cardiology Other Visit Diagnoses Type 2 diabetes mellitus with diabetic neuropathy, 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 ([facility]) documented in this [facility]01-07-2025 Instructions* Patient Instructions* Agusto Olmstead NP - 08/27/2024 2:20 PM EST Heart doctor: for chest pain, at [facility], they will call you Bladder/sling: urogynecologist, [facility] they will call you, Blood pressure: keep taking metoprolol, add amlodipine at 5mg once day documented in this [facility]01-02-2025 Miscellaneous Notes* Telephone Encounter - Asia Barreto RN - 08/22/2024 3:14 PM EST Last Office Visit: 07/03/2024 Next Office Visit: 10/09/2024 Last Urine Drug Screen: Lab Results Component Value Date BENZOSCRN Negative 08/09/2023 OAR[facility] appropriate documented in this [facility]01-02-2025 Telephone encounter Note* Telephone Encounter - Asia Barreto RN - 08/22/2024 3:14 PM EST Last Office Visit: 07/03/2024 Next Office Visit: 10/09/2024 Last Urine Drug Screen: Lab Results Component Value Date BENZOSCRN Negative 08/09/2023 OAR[facility] appropriate [facility]12-24-2024 History of Present illness Narrative* Agusto Olmstead NP - 08/13/2024 6:02 AM EST Updating meds documented in this [facility]11-06-2024 Telephone encounter Note* Telephone Encounter - Adama [...] locally Cystatin C and CMP sent to [facility] ( ; [place] [phone]) and asked her to go to lab [...] to proceed with surgery Thanks [facility] Work Phone: 1(940) 435-299011-06-2024 Miscellaneous Notes* Telephone Encounter - Adama Velasco [...] locally Cystatin C and CMP sent to [facility] ( ; [place] [phone]) and asked her to go to lab [...] surgery Thanks [facility] History of Present illness Narrative* Agusto Olmstead NP - 06/11/2024 12:59 PM EDTAssociated Problem(s): Skin lesion of face Suspect to be AK Pt request referral to derm * Agusto Olmstead NP - 06/11/2024 12:58 PM EDTAssociated Problem(s): Malignant neoplasm of cervix uteri, unspecified (CMS/HCC) Had hyst * Agusto Olmstead NP - 06/11/2024 12:56 PM EDTAssociated Problem(s): Rheumatoid arthritis, unspecified ([facility]) Does not follow with Rheumatology * Agusto Olmstead NP - 06/11/2024 12:55 PM EDTAssociated Problem(s): Type 2 diabetes mellitus with hyperglycemia, with long-term current use of insulin ([facility]) Will recheck A1c level Continue current insulin at this time Hx of non compliance with fu appts w specialist * Agusto Olmstead NP - 06/11/2024 12:54 PM EDTAssociated Problem(s): Chronic kidney disease, stage 3b (HCC) ([facility]) Has to get labs for nephrology and fu appt with them Discussed with pt the importance of adequte blood pressure and blood sugar control to help slow theprogression of CKD * Agusto Olmstead NP - 06/11/2024 12:54 PM EDTAssociated Problem(s): Continuous leakage of urine Continue with urology * Agusto Olmstead NP - 06/11/2024 12:53 PM EDTAssociated Problem(s): Primary hypertension ([facility]) Has not been taking both amlodipine and metoprolol We will start over with amlodipine at 10mg daily Fu in 2 weeks for blood pressure check Recheck in office 188/90 * Agusto Olmstead NP - 06/11/2024 12:52 PM EDTAssociated Problem(s): RSD (reflex sympathetic dystrophy) Continue with pain mgmt * Agusto Olmstead NP - 06/11/2024 12:52 PM EDTAssociated Problem(s): Type 2 diabetes mellitus with diabetic neuropathy, 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 ([facility]) Reports increase in neuropathy symptoms, is on [...] is not being taken. She sees a [facility] specialist.Eye exam is not current. SUBJECTIVE: MEDICATIONS: Current [...] test strip 4 times daily use HYDROcodone-acetaminophen ([place]) 7.5-325 MG tablet 1 tablet, Oral, 3 [...] of left great toe (CMS/HCC) Cervical cancer ([facility]) 10/11/2023 had Hysterectomy Charcot's joint of foot, left 10/11/2023 Chronic kidney disease, stage III (moderate) (HCC) ([facility]) 10/11/2023 Fatty liver 10/11/2023 History of hysterectomy 10/11/2023 Cervical cancer Hyperkalemia Hyponatremia Leakage of urine from ureter Lupus ([facility]) Memory impairment of gradual onset MOCA: on [...] of nail of digit of hand Osteoporosis ([facility]) 10/11/2023 Post-menopausal 10/11/2023 Rheumatoid arthritis ([facility]) 10/11/2023 RSD (reflex sympathetic dystrophy) 10/11/2023 Type 2 diabetes mellitus with diabetic neuropathy, 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 ([facility]) 10/11/2023 Visual impairment 10/11/2023 HAD BILATERAL CATARCT [...] hyperglycemia, with long-term current use of insulin ([facility]) Will recheck A1c level Continue current insulin at this time Hx of non compliance with fu appts w specialist Relevant Orders Basic metabolic panel Hemoglobin A1c 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 ([facility]) IESHA (iron deficiency anemia) Primary hypertension ([facility]) Has not been taking both amlodipine and metoprolol We will start over with amlodipine at 10mg daily Fu in 2 weeks for blood pressure check Recheck in office 188/ Relevant Medications amLODIPine (Norvasc) 10 MG tablet Type 2 diabetes mellitus with diabetic neuropathy, unspecified whether long-term insulin use ([facility]) Reports increase in neuropathy symptoms, is on lyrica at 150mg TID, also takes percocet for RSD Will trial addition of duloxetine at 20mg daily Fu in 4-6 weeks Relevant Medications DULoxetine (Cymbalta) [address] capsule RSD (reflex sympathetic dystrophy) Continue with pain mgmt Malignant neoplasm of cervix uteri, unspecified ([facility]) Rheumatoid arthritis, unspecified ([facility]) Does not follow with Rheumatology Continuous leakage of urine Continue with urology 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 Type 2 diabetes mellitus with diabetic chronic kidney disease (CMS/HCC) Chronic kidney disease, stage 3b (HCC) (CMS/[facility]) Has to get labs for nephrology and fu appt with them Discussed with pt the importance of adequte blood pressure and blood sugar control to help slow theprogression of CKD Hyperparathyroidism, unspecified (CMS/HCC) Other Visit Diagnoses Essential (primary) hypertension ([facility]) - Primary documented in this encounterResearch Belton [id number] NoteReceived referral again with no C9 approval attached. Spoke with referring provider's office. They will send message to the referral's office to fax C9 approval. I provided my contact information and fax number.[facility]09-19-2024 NoteReviewed pt's referral. Pt is being referred for SCS trial consult with [employer], however, it states in the note that [...] Please do not schedule if pt calls back.[facility] 05-01-2024 History of Present illness Narrative* Juanito Barnard MD - 05/01/2024 10:00 AM EDT Images from the original note were not included. [facility] UROLOGY NEW PATIENT [...] chronic constipation Juanito Barnard MD Associate Staff [facility] [place] Department of Urology I spent a total of 30 minutes on the date of the service which included preparing to see the patient, syjh-oz-kdce patient care, completing clinical documentation, obtaining and/or reviewing separately obtained history, performing a medically appropriate examination, counseling and educating the pat ient/family/caregiver, and ordering medications, tests, or procedures. >50% of time was devoted to patient counseling. documented in this encounterPremier Health Miami Valley Hospital09-11-2024 NoteHNO ID: [id number] Author: JUANITO BARNARD MD Service: ? Author Type: Physician Type: Progress Notes Filed: 05/01/2024 12:12 Note Text: [facility] NEW PATIENT CLINIC NOTE SERVICE DATE: [...] stable Resp: normal e (more content not included)...[facility] 05-01-2024 NotePatient Outreach (ANDREW) AISLINN WHEELER ([id number]) 1960 F Date Time Provider Department 05/01/24 [...] for genitourinary condition [Z13.89] Order(s):URINALYSIS, REFLEX MICROSCOPIC [CWV1025] Order #: [id number]. #:[id number] Prescriptions as of 05/06/2024 - metoprolol succinate [...] without hematuria [N39.*08/31/2023 09/04/2023 Encounter Status:Closed by [employer], PRODUSER on 05/06/24[facility] 04-16-2024 History of Present illness Narrative* Agusto Olmstead NP - 04/16/2024 4:31 PM EDTAssociated Problem(s): Rheumatoid arthritis, unspecified (CMS/HCC) Does not follow with Rheumatology * Agusto Olmstead NP - 04/16/2024 4:31 PM EDTAssociated Problem(s): Type 2 diabetes mellitus with hyperglycemia, with long-term current use of insulin ([facility]) A1c is improving * Agusto Olmstead NP - 04/16/2024 4:31 PM EDTAssociated Problem(s): Type 2 diabetes mellitus with diabetic chronic kidney disease (HCC) ([facility]) A1c is coming down Cont current meds * Agusto Olmstead NP - 04/16/2024 4:30 PM EDTAssociated Problem(s): Malignant neoplasm of cervix uteri, unspecified ([facility]) Had hyst * Agusto Olmstead NP - 04/16/2024 4:30 PM EDTAssociated Problem(s): Chronic kidney disease, stage 3b (HCC) ([facility]) Will re refer to Nephrology * Agusto [...] smoke could have effect her. * Agusto Aysha, PHOSPHORIC ACID OPERATOR - 04/16/2024 2:20 PM EDT Images from [...] test strip 4 times daily use HYDROcodone-acetaminophen ([place]) 7.5-325 MG tablet 1 tablet, Oral, 3 [...] Diagnosis Date Amputation of left great toe ([facility]) Cervical cancer ([facility]) 10/11/2023 had Hysterectomy Charcot's joint of foot, left 10/11/2023 Chronic kidney disease, stage III (moderate) ([facility]) ([facility]) 10/11/2023 Fatty liver 10/11/2023 History of hysterectomy 10/11/2023 Cervical cancer Hyperkalemia Hyponatremia Leakage of urine from ureter Lupus ([facility]) Memory impairment of gradual onset MOCA: on [...] of nail of digit of hand Osteoporosis ([facility]) 10/11/2023 Post-menopausal 10/11/2023 Rheumatoid arthritis ([facility]) 10/11/2023 RSD (reflex sympathetic dystrophy) 10/11/2023 Type 2 diabetes mellitus with diabetic neuropathy, unspecified whether long-term insulin use ([facility]) 10/11/2023 Visual impairment 10/11/2023 HAD BILATERAL CATARCT [...] hyperglycemia, with long-term current use of insulin ([facility]) A1c is improving Stage 3a chronic kidney disease (HCC) ([facility]) Relevant Orders Ambulatory referral to Nephrology Malignant neoplasm of cervix uteri, unspecified ([facility]) Had hyst Rheumatoid arthritis, unspecified ([facility]) Does not follow with Rheumatology Type 2 diabetes mellitus with diabetic chronic kidney disease (HCC) ([facility]) A1c is coming down Cont current meds Chronic kidney disease, stage 3b (HCC) ([facility]) Will re refer to Nephrology Hyperparathyroidism, unspecified ([facility]) Relevant Orders Ambulatory referral to Nephrology Chronic cough - Primary Check xray Consider antihistamine and nasal steroids Will await the results Relevant Orders XR chest 2 views documented in this encounterResearch Belton [id number] NoteHNO ID: [id number] Author: ?, ?, ? Service: ? Author Type: ? Type: Progress Notes Filed: 04/15/2024 07:29 Note Text: Incidental Lung Nodule Enrollment Outreach attempt: 3rd Attempt Outreach status: Complete Enrolled in Lung Nodule program: No Declined reason: Other Lung Nodule Program Location: [place] Two letter attempts, no response. Discharge letter sent.[facility]08-26-2024 History of Present illness Narrative* Chioma Durán - 04/15/2024 7:28 AM EDT Incidental Lung Nodule Enrollment Outreach attempt: 3rd Attempt Outreach status: Complete Enrolled in Lung Nodule program: No Declined reason: Other Lung Nodule Program Location: [place] Two letter attempts, no response. Discharge letter sent. documented in this encounterPremier Health Miami Valley Hospital08-26-2024 NotePatient Outreach (PULMMN) AISLINN WHEELER ([id number]) 1960 F Date Time Provider Department 04/15/24 CHIOMA DURÁN During your visit today, we recorded the following information about you: Chioma Durán 04/15/2024 7:29 AM Signed Incidental Lung Nodule Enrollment Outreach attempt: 3rd Attempt Outreach status: Complete Enrolled in Lung Nodule program: No Declined reason: Other Lung Nodule Program Location: [place] Two letter attempts, no response. Discharge letter [...] Text Encounter Status:Closed by CHIOMA DURÁN on 04/15/24[facility]08-20-2024 NoteHNO ID: [id number] Author: CARMENZA ESPINOSA MD Service: ? Author [...] bladder with poor compliance and BURKE at INTERMEDIATE of 100ml. Bladder remodeling without VUR. Valsalva [...] visit. Either the patient or their legal premium service representative has been informed of the risks and benefits of -- and alternatives to -- treatment through a remote evaluation and consents to proceed with the evaluation remotely.[facility]08-20-2024 History of Present illness Narrative* Carmenza Espinosa [...] bladder with poor compliance and BURKE at INTERMEDIATE of 100ml. Bladder remodelingwithout VUR. Valsalva voiding [...] visit. Either the patient or their legal premium service representative has been informed of the risks and benefits of -- and alternatives to -- treatment through a remote evaluation andconsents to proceed with the evaluation remotely. documented in this encounterPremier Health Miami Valley Hospital08-19-2024 NoteHNO ID: [id number] Author: ?, ?, ? Service: ? Author Type: ? Type: Progress Notes Filed: 04/08/2024 09:39 Note Text: Incidental Lung Nodule Enrollment Outreach attempt: 2nd Attempt Outreach status: Complete Enrolled in Lung Nodule program: Referred Lung Nodule outreach: Needs outreach Lung Nodule Program [facility]: [place] [facility] History of Present illness Narrative* Chioma Durán - 04/08/2024 9:38 AM EDT Incidental Lung Nodule Enrollment Outreach attempt: 2nd Attempt Outreach status: Complete Enrolled in Lung Nodule program: Referred Lung Nodule outreach: Needs outreach Lung Nodule Program Location: [place] Two letter attempts documented in this encounterPremier Health Miami Valley Hospital08-19-2024 NotePatient Outreach (PULMMN) AISLINN WHEELER ([id number]) 1960 F Date Time Provider Department 04/08/24 CHIOMA DURÁN During your visit today, we recorded the following information about you: Chioma Durán 04/08/2024 9:39 AM Signed Incidental Lung Nodule Enrollment Outreach attempt: 2nd Attempt Outreach status: Complete Enrolled in Lung Nodule program: Referred Lung Nodule outreach: Needs outreach Lung Nodule Program Location: [place] Two letter attempts Allergies As of Date: [...] Text Encounter Status:Closed by CHIOMA DURÁN on 04/08/24[facility]08-13-2024 NoteHNO ID: [id number] Author: CARMENZA ESPINOSA MD Service: ? Author Type: Physician Type: Progress Notes Filed: 04/02/2024 11:52 Note Text: [facility] [...] bladder with poor compliance and BURKE at INTERMEDIATE of 100ml. Bladder remodeling without VUR. Valsalva voiding with atonic detrusor. Will refer to consider bladder augmentation. Carmenza Espinosa MD Voiding cystourethrogram- Voiding Cystourethrogram Patient Name - Aislinn Wheeler Date - April 02, 2024 Imaging exam - VCUG Number of images saved - 11 Patient position - Sitting Radiologic Findings: A clinical microbiologist radiograph was obtained. The bony and soft tissue structures are within normal. 147 ccs contrast were used to fill the bladder. The bladder outline is irregular/trabeculated and abnormal shaped appearing. There is no ureteral reflux. During the voiding phase there is abnormal bladder neck opening and urethra is not visualized. Bladder emptying is not visualized Read by - Carmenza Espinosa, [facility]08-09-2024 Nurse Note* Lorie Burrows RN - 03/29/2024 1:21 PM EDT [facility] URODYNAMICS LAB URODYNAMIC [...] allergy: No Females- Is patient : No Museum Librarian offered:Patient declines B/O UA: Yes, Negative for [...] an understanding of instructions given. [facility]08-09-2024 Nurse Note* Lorie Burrows RN - 03/29/2024 1:21 PM EDT [facility] URODYNAMICS LAB URODYNAMIC [...] allergy: No Females- Is patient : No Museum Librarian offered:Patient declines B/O UA: Yes, Negative for [...] instructions given. documented in this encounterPremier Health Miami Valley Hospital08-07-2024 NoteHNO ID: [id number] Author: NURIA READ APRN.CNP Service: ? Author Type: Nurse Practitioner Type: Progress Notes Filed: 03/27/2024 14:36 Note Text: Incidental Lung Nodule Enrollment Outreach attempt: 1st Attempt Outreach status: Complete Enrolled in Lung Nodule program: Referred Lung Nodule outreach: Needs outreach Lung Nodule Program Location: [facility]08-07-2024 History of Present illness Narrative * Nuria Read APRN.CNP - 03/27/2024 2:33 PM EDT Incidental Lung Nodule Enrollment Outreach attempt: 1st Attempt Outreach status: Complete Enrolled in Lung Nodule program: Referred Lung Nodule outreach: Needs outreach Lung Nodule Program Location: [facility] documented in this encounterPremier Health Miami Valley Hospital08-07-2024 NotePatient Outreach (LUJ002) AISLINN WHEELER ([id number]) 1960 F Date Time Provider Department 03/27/24 NURIA READ [id number] During your visit today, we recorded the following information about you: Nuria Read APRN.CNP 03/27/2024 2:36 PM Signed Incidental Lung Nodule Enrollment Outreach attempt: 1st Attempt Outreach status: Complete Enrolled in Lung Nodule program: Referred Lung Nodule outreach: Needs outreach Lung Nodule Program Location: [facility] [place] Allergies As [...] Text Encounter Status:Closed by NURIA READ on 03/27/24[facility] 03-26-2024 Instructions* Patient Instructions* Carmenza Espinosa [...] so you arrive at the [facility] with the urge to empty your [...] when you arrive at the [facility]. Speak with a nurse if you feel you must empty your bladder. If you are taking antibiotics for a urinary tract infection (UTI) or bladder infection, notify yourphysician's office immediately. We may reschedule your bladder test. Bring a list of all prescribed and hfaz-xaj-vsocjup medications you are taking. If you should need assistance due to a language barrier or medical needs/condition, please notify the tankroom worker when making your appointment and one will be provided for you ([phone]). If you are taking overactive bladder medications [...] is finished. documented in this encounterPremier Health Miami [facility] Hospital08-06-2024 NoteHNO ID: [id number] Author: CARMENZA ESPINOSA MD Service: ? Author Type: Physician Type: Progress Notes Filed: 03/26/2024 11:54 Note Text: [facility] FOR [...] her bladder. Had bladder botox injections at [facility] about 3 mo ago with [...] Assessed 03/26/2024 PHYSICAL EXAM: Patient declined a hospitalist physician General: No acute distress, well appearing : [...] questions and concerns were addressed. Carmenza Espinosa, [facility]08-06-2024 History of Present illness Narrative* Carmenza Espinosa MD - 03/26/2024 11:03 AM EDT [facility] [...] her bladder. Had bladder botox injections at [facility] about 3 mo ago with [...] Assessed 03/26/2024 PHYSICAL EXAM: Patient declined a hospitalist physician General: No acute distress, well appearing : [...] bladder scan. documented in this encounterPremier Health Miami Valley Hospital08-06-2024 NoteHNO ID: [id number] Author: MARIA TERESA HENRY MA Service: ? Author Type: Cinetechnician Type: Progress Notes Filed: 03/26/2024 11:54 Note Text: Pt voided upon arrival. PVR = 205 ml Via bladder scan. Pt was doing ISC, but was told she could stop. Pt instructed to give a urine specimen. 2ND Repeat PVR PVR = 135 ml Via bladder scan.[facility]07-08-2024 Telephone encounter Note* Telephone Encounter - Flavio Coon RN - 02/26/2024 2:43 PM EDT Pt LVM asking for her CT scan results. Noted in pt chart was an unread message from regarding the most recent CT scan. LVM for pt and let her know about MyChart message and provided number if pt has any further questions. [facility]07-08-2024 Miscellaneous Notes* Telephone Encounter - Flavio Coon RN - 02/26/2024 2:43 PM EDT Pt LVM asking for her CT scan results. Noted in pt chart was an unread message from regarding the most recent CT scan. LVM for pt and let her know about MyChart message and provided number if pt has any further questions. documented in this encounterPremier Health Miami Valley Hospital06-24-2024 Telephone encounter Note * Telephone Encounter - Vonnie Wilder RN - 02/12/2024 4:19 PM EDT Patient LVM requesting results from 02/01/24 CT Urogram. Will update medical team [facility]06-24-2024 Miscellaneous Notes* Telephone Encounter - Vonnie Wilder RN - 02/12/2024 4:19 PM EDT Patient LVM requesting results from 02/01/24 CT Urogram. Will update medical team documented in this encounterPremier Health Miami Valley Hospital06-13-2024 History of Present illness Narrative* Heidy Linda [...] PATIENT PRESENTS WITH AN IMPLANTABLE OR ATTACHED ECONOMIC GEOGRAPHER: No RADIOLOGY DEPARTMENT: CT; Exam(s) Completed: Urogram PERIPHERAL IV DATA: Site assessment: Clean,Dry and Intact, Site disposition Discontinued SIGNED BY: RT Michael(R) February 01, 2024 2:50 PM documented in this encounterPremier Health Miami Valley Hospital06-13-2024 NoteHNO ID: [id number] Author: PRERNA CORRAL RT(R) Service: ? Author [...] PATIENT PRESENTS WITH AN IMPLANTABLE OR ATTACHED ECONOMIC GEOGRAPHER: No RADIOLOGY DEPARTMENT: CT; Exam(s) Completed: Urogram PERIPHERAL IV DATA: Site assessment: Clean,Dry and Intact, Site disposition Discontinued SIGNED BY: RT Michael(R) February 01, 2024 2:[address] [facility]06-13-2024 NoteHNO ID: [id number] Author: HEIDY LINDA RN Service: Nursing Author [...] Wheeler DATE: February 01, 2024 TIME: 2:[address] [facility]05-24-2024 NoteHNO ID: [id number] Author: SANJANA ROSS MA Service: ? Author Type: Cinetechnician Type: Progress Notes Filed: 01/12/2024 14:43 Note Text: Post Void Residual done on patient with 211 cc residual volume remaining. notified. Sanjana Ross [facility]05-24-2024 History of Present illness Narrative* Sanjana Ross MA - 01/12/2024 1:53 PM EDT Post Void Residual done on patient with 211 cc residual volume remaining. notified. Sanjana Ross MA * Taurus Ballard MD - 01/12/2024 1:50 PM EDT [facility] FOLLOW-UP PATIENT HISTORY AND PHYSICAL [...] Will refer to Dr. Tamanna Ruiz APRN.MANAGER CONTROL Attending Note I have personally performed a [...] Past Histories independently gathered by the clinical cad application support specialist and the remaining scribed note accurately describes my personal service to the patient. Dr. Taurus Ballard MD documented in this encounterPremier Health Miami Valley Hospital05-24-2024 NoteHNO ID: [id number] Author: TAURUS BALLARD MD Service: ? Author Type: Physician Type: Progress Notes Filed: 01/12/2024 14:43 Note Text: [facility] FO[facility] PATIENT HISTORY AND PHYSICAL EXAM [...] stress urinary incontinence. Will refer to Dr. Slopnick PLAN: CIC 1 time per day with 12f catheter for urinary retention CT urogram Will refer to Dr. Tamanna Ruiz APRN.MANAGER CONTROL Attending Note I have personally performed a [...] Ballard MD Date: 01/12/2024 (more content not included)...[id number] Discharge instructions Patient Education 10/25/2023 16:06:45 [...] including vitamins, herbs, eye drops, creams, and eafw-tow-cslnpkd medicines. Any problems you or family members [...] provider tells you to take them. Taking vjqq-whd-ondvxnd medicines, vitamins, herbs, and supplements. General instructions [...] Follow these instructions at home: Medicines Take wyfj-ryc-vansmtm and prescription medicines only as told by [...] provider. Document Revised: 02/11/2022 Document Reviewed: 02/11/2022 [employer] Patient Education 2022 [employer] Follow Up Care 09/26/2023 08:43:34 With:HEIDY ARNOLD PA-C, URL Address: [address] [place] [address] When: Unknown [facility] [place] 02-07-2024 Miscellaneous Notes* Telephone Encounter - Drew Alston Research Coordinator - 09/27/2023 2:32 PM ESTSummary: [place] IRB# [id number] IRB# [id number]: Vascular events in patients undergoing same-day nonCardiac surgery - [facility] PI: Mary Rojas MD, LETY, BARNEY. Outcomes Research Department. An[facility] [place]. [facility]. Aislinn Wheeler was unavailable at the listed phone number. We will attempt to contact the patient through [employer] message. Drew Esqueda Research Coordinator Research Coordinator documented in this encounterPremier Health Miami Valley Hospital02-06-2024 Miscellaneous Notes* Telephone Encounter - Drew Alston Research Coordinator - 09/26/2023 3:31 PM ESTSummary: [facility] IRB# [id number] IRB# [id number]: Vascular events in patients undergoing same-day nonCardiac surgery - [place] PI: Mary Rojas MD, LETY, BARNEY. Outcomes Research Department. Anesthesia [place]. [facility]. Aislinn Wheeler was unavailable at the listed phone number. We will attempt to contact the patient again at a later date. Drew Esqueda Research Coordinator Research Coordinator documented in this encounterPremier Health Miami Valley Hospital01-14-2024 NoteHNO ID: [id number] Author: KRYSTA COPE MD Service: Hospital Medicine [...] -- 08/31/23 1115 activity - mobilize patient (ak,oh) VTE Prophylaxis: VTE prophylaxis appropriate SIGNATURE: Krysta Cope MD PATIENT NAME: Aislinn Wheeler DATE: September 03, 2023 TIME: 6:31 [facility]01-13-2024 NoteHNO ID: [id number] Author: KRYSTA COPE MD Service: Hospital Medicine [...] -- 08/31/23 1115 activity - mobilize patient (ak,wa) VTE Prophylaxis: VTE prophylaxis appropriate SIGNATURE: Krytsa Cope MD PATIENT NAME: Aislinn Wheeler DATE: September 02, 2023 TIME: 2:31 [facility]01-13-2024 NoteHNO ID: [id number] Author: NOTE, INTERFACE, ? Service: ? Author Type: ? Type: Progress Notes Filed: 09/02/2023 02:20 Note Text: Epic Scheduled Downtime: 09/02/2023 1:00:00 AM to 09/02/2023 2:04:22 [facility]01-12-2024 NoteHNO ID: [id number] Author: MIKE WILDER RN Service: Care Management Author Type: Registered Nurse Type: Care Mgt Progress Note Filed: 09/01/2023 15:30 Note Text: CARE MANAGEMENT WEEKEND PLANNING NOTE NO WEEKEND DISCHARGE Disposition: TBD Anticipated Discharge Date: No weekend DC anticipated Weekend Fruit Bar Maker Pager #: Girish Rogers [phone] ANATOLIY UTI - repeat UA sent - bc pending Waiting on podiatry consult SIGNATURE: Mike Wilder RN PATIENT NAME: Aislinn Wheeler DATE: September 01, 2023 TIME: 3:28 PM PAGER/CONTACT #: [phone] NoteHNO ID: [id number] Author: ANTHONY BARROW MD Service: Hospital Medicine [...] -- 08/31/23 1115 activity - mobilize patient (ak,oh) VTE Prophylaxis: VTE prophylaxis appropriate SIGNATURE: Anthony Barrow MD PATIENT NAME: Aislinn Wheeler DATE: September 01, 2023 TIME: 11:36 [facility]01-11-2024 History of Past illness Narrative* Problem [...] encounter (statuses as of 09/27/2023) [facility]01-11-[facility] History of Past illness Narrative* Problem [...] encounter (statuses as of 09/28/2023) [facility]01-11-2024 History of Past illness Narrative* Problem Noted Date Diagnosed Date Resolved Date Fever 08/31/2023 09/04/2023 Urinary tract infection without hematuria 08/31/2023 09/04/2023 Acute cystitis without hematuria 01/18/2021 01/21/2021 Pyelonephritis 01/17/2021 01/21/2021 Sepsis 01/17/2021 01/21/2021 Hyponatremia 01/17/2021 01/21/2021 Hyperkalemia 01/17/2021 09/04/2023 ANATLOIY (acute kidney injury) 01/17/2021 Hydronephrosis due to obstruction of ureter 01/17/2021 01/21/2021 documented as of this encounter (statuses as of 09/28/2023) [facility]01-11-2024 NoteHNO ID: [id number] Author: TIN QUIÑONEZ LSW Service: Care Management Author Type: Command Post Superintendent Type: Care Mgt Initial Assessment Filed: 08/31/2023 [...] Determined Advance Directives Current Advance Directive: None Doughmaker Attempted to Assist with AD Completion: Yes Action: Education Provided Current Living Arrangements and Support Lives with: Family members, Children Type of Residence: Private Residence (House) Support: Family members How do you manage to accomplish the following: Independent: Ambulation;Bathe/Shower;Dress;Meals/Meal Prep;Going to the bathroom;Medication Management;Transportation to appointments/community Current Services/Equipment Current Post-Acute Service(s): None Discharge Planning Patient Goal(s): General wellness [place] of Choice Explained: [place] of Choice Given: No Reason Not Given: [...] with pt at bedside. [place] grandchildren (18, 17, and [...] 31, 2023 TIME: 1:42 PM CONTACT #: [id number] Evaluation note* Encounter Date Diagnosis Assessment Notes Treatment Notes Treatment Clinical Notes Jun, Vitamin B12 deficiency (ICD-10 - E53.8) [employer] Other 11-03-2023 NoteHNO ID: [id number] Author: Lakisha Kaye Service: ? Author Type: ? Type: Plan of Care Filed: 06/26/2023 9:53 AM Note Text: PHARMACY BEDSIDE DELIVERY SERVICE Patient Name: Aislinn Wheeler The marked outpatient medications were Filled at: [place] and [facility] Medication List START taking these medications [...] your Primary Care Provider. Lakisha Kaye PAGER: [phone] June 26, 2023 9:52 [facility]11-03-2023 Miscellaneous Notes* Telephone Encounter - Hiedy Garcia RN - 06/23/2023 9:03 AM EDT Patient had left robotic partial nephrectomy by Dr. Ballard on 06/22/2023 Will call for surgical follow up once discharged documented in this [facility]Prem[facility]11-[facility]-2023 NoteHNO ID: [id number] Author: Taurus Ballard MD Service: Urology Author Type: Physician Type: Progress Notes Filed: 06/23/2023 1:37 PM Note Text: [facility] PROGRESS NOTE Name: Aislinn Wheeler Bed: [id number] Date: June 23, [address] [facility] Urology Service Pager: [phone] ASSESSMENT AND PLAN Aislinn Wheeler is a [...] La Fuente MD Urology Resident [facility] [place] Pager [phone] SUBJECTIVE -c/o pain, had a BM, no [...] 0659 06/23/23 07 - 06/24/23 0659 Shift 7992-3299 7237-4358 9747-0887 24 Hour Total 2651-9944 4230-2923 5618-0119 24 Hour Total INTAKE IV 1600 1600 Volume (mL) (lactated ringers iv infusion) 1000 1000 Volume (mL) (lactated ringers iv infusion) 600 600 Shift Total 1600 1600 OUTPUT Urine 300 766 215 3978 OR Urine Output 300 300 Output ( Indwelling Urinary Catheter 06/22/23 1130 Valerio 16 Fr) 675 349 8534 Tubes 20 40 60 Drain/Tube Output (Drain/Tube 06/22/23 1333 Lex Vega Right Lower Quadrant Abdomen Drain #1) 20 40 60 # of BMs Number of BMs 1 x 1 x Blood 50 50 Estimated Blood loss 50 50 Shift Total 350 883 281 6811 Weight (kg) 59 59 59 59 59 [...] We will call with pathology. Taurus Ballard [facility]et[facility] HospitalYkybhbzm60-66-5628 NoteHNO ID: [id number] Author: Linda Nicholson RN Service: Nursing Author Type: Registered Nurse Type: Nursing Progress Note Filed: 06/22/2023 2:15 PM Note Text: surgical dressing: surgical glue, [facility]11-02-2023 NoteHNO ID: [id number] Author: Lola Be APRN.HVAC ENGINEERING TECHNICIAN Service: ? Author Type: Nurse Forepart Rasper Type: Anesthesia Procedure Notes Filed: 06/22/2023 12:24 PM Note Text: ANESTHESIOLOGY PROCEDURE NOTE Airway General Information Procedure Start Time/Medication Administration: 06/22/2023 11:22 AM Patient location during procedure: OR Patient identity confirmed: arm band, care child study team director and patient Staffing HVAC ENGINEERING TECHNICIAN: Lola Be APRN.HVAC ENGINEERING TECHNICIAN Performed by: QUIRINO Indications and Patient Condition [...] insertion, baseline dentition intact SIGNATURE: Lola Be APRN.HVAC ENGINEERING TECHNICIAN PATIENT NAME: Aislinn Wheeler DATE: June 22, 2023 TIME: 12:24 PM CSN: [id number] Miscellaneous Notes* Telephone Encounter - Vonnie Wilder RN - 06/15/2023 11:24 AM EDT Attempted to call patient for pre op instructions.mailbox is full and unable to LVM. Will try again. documented in this encounterPrem[facility]10-19-2023 Evaluation note* Encounter Date Diagnosis Assessment [...] (ICD-10 - Z68.25) May, Other see above [employer] Other 10-02-2023 Note [id number]:127Nik [facility] 05-22-2023 NoteCystoscopy with Botox injection [...] if you have a fever over [address] 05-22-2023 Hospital Discharge instructions Patient Education [...] degrees. Follow Up Care 05/03/2023 10:48:47 With:Lisa Olvera Address: [address], [place] [address] [phone] Business (1) [address], [address] [address] [phone] Business (1) When: Unknown Comments:Office to schedule follow up in 1 month with [facility]09-28-2023 Evaluation note* Encounter Date Diagnosis Assessment Notes [...] 24.0-24.9, adult (ICD-10 - Z68.24) see above [employer] Other [id number] Miscellaneous Notes* Telephone Encounter - Agusto Faulkner - 05/18/2023 12:57 PM EDT Consult notes sent back to Dr. Lisa Olvera , phone [phone]. From Dr. Ballard office. documented in this encounterPremier Health [facility]09-27-2023 NoteHNO ID: [id number] Author: Taurus Ballard MD Service: ? Author Type: Physician Type: Progress Notes Filed: 05/17/2023 1:35 PM Note Text: [facility] FOLLOW-UP PATIENT HISTORY AND PHYSICAL [...] 1.92 01/19/[address] scan (outside records) [facility] 09/28/21 IMPRESSION: Since the prior CT [...] threatening or minor complicatio (more content not included)...[facility] HospitalLuyhelay60-72-8152 Hospital Discharge instructions Patient Education 02/22/2023 09:35:15 [...] provider. Document Revised: 12/16/2021 Document Reviewed: 12/16/2021 [employer] Patient Education 2022 [employer]. Follow Up Care 09/13/2022 14:59:43 With:Vern TAVERAS, EMELINA Hernandez, URO Address: When:Within 2 Month(s) Comments:w/ RIV[facility] 05-09-2023 Evaluation note* Encounter Date [...] N28.1) Patient follows with urology clinic in [facility] for enlarging left renal cyst. [...] her blood pressure persistently more than 150/90. [employer] Other 02-01-2023 Hospital Discharge instructions Patient Education [...] 07/24/2013 Document Revised: 03/27/2019 Document Reviewed: 03/27/2019 [employer] Patient Education 2020 [employer]. Follow Up Care 09/14/2022 14:44:34 With:Vern TAVERAS, Lisa Montiel, EMELINA, URO Address: When: Unknown [facility] 01-24-2023 Hospital Discharge instructions Patient Education 09/13/2022 [...] fried and sweet foods. General instructions Take kbqa-aoq-usrbywy and prescription medicines only as told by [...] 06/03/2010 Document Revised: 11/28/2019 Document Reviewed: 08/23/2018 [employer] Patient Education 2020 [employer]. Follow Up Care 08/24/2022 11:21:49 With:CATALINA VIRGEN, HEIDY Rodriguez, URL Address: [address] [place], [place] [address] [address] When: Unknown [facility] 06-09-2021 Miscellaneous Notes* Telephone Encounter - Barbara Talbot - 01/27/2021 10:30 AM EDT Scheduled 02/15 * Telephone Encounter - Barb Silva MD - 01/27/2021 9:40 AM EDT Please schedule hospital follow up with Guy Overton Deitzer, or Sasha. Virtual ok documented in this encounterPremier Health [facility] Hospital06-03-2021 NoteHNO ID: [id number] Author: Griselda Diaz (Telecardia) Service: ? Author Type: ? Type: Plan [...] Generic drug: insulin detemir U-100 Griselda Diaz (Telecardia) PAGER: paris January 21, 2021 4:27 [facility] CampusFwqbkkwz16-69-0035 NoteHNO ID: [id number] Author: ELIZABETH Kothari Service: Care Management Author Type: Command Post Superintendent Type: Care Mgt Progress Note Filed: 01/21/2021 1:39 PM Note Text: CARE MANAGEMENT DISCHARGE NOTE SERVICE DATE: 01/21/2021 SERVICE TIME: 1300 LOS: 4 days Admission Date: 01/17/2021 DISCHARGE ARRANGEMENT (list agency and phone number) Discharge Arrangement: Home;Home Custodial Care: Nursing;PT;OT [facility] ASSESSMENT: Maira Davila to transport home [phone] HANDOFF COMMUNICATION: Handoff to: Other Caregiver;Primary Care Physician Primary Care Physician Name/Phone: Madeline Jordan PA-C Other Caregiver Name/Phone: [facility] TRANSPORTATION ARRANGEMENTS: Transportation Arrangements: Car (Family to transport) ADDITIONAL CONTACT RESOURCES: [facility] not able to accept. [place] of choice provided and sent to first available to accept to her service area. [facility] willing to accept. Pt concerned she does not have Must See [place] part B to cover services. I spoke with maira who plans on paying for services out of pocket until pt's insurance becomes active February 18, 2021 Discharge Information Row Name ED to Hosp-Admission (Current) from 01/17/[address] Care Agency [facility] Fax# Care to start after your appointment with internal medicine on 01/25/2021 for additional orders. The agency will be contacting you to set this up Durable Medical Equipment Agency [facility] Equipment Needed Walker was delivered to hospital room prior to discharge [place] willing to accept pending pt has her initial appointment with internal medicine on 01/25/2021. Both pt and maira Davila were advised. Dr Hansen also provided script for outpt therapy should home care fall through or cost too high for maira to cover. Lola to call [place] to discuss further. Walker was delivered to room and prescription was sent to [facility]. Lola to hand picker. No other homegoing needs. SIGNATURE: ELIZABETH Kothari PATIENT NAME: Aislinn Wheeler DATE: January 21, 2021 TIME: 1:32 PM PAGER/CONTACT #: [phone] NoteHNO ID: [id number] Author: Derik Daniel Service: Care Management Author Type: Resource Center Coreroom Foundry Laborer Type: Care Mgt Progress Note Filed: 01/21/2021 11:24 AM Note Text: CARE MANAGEMENT PROGRESS NOTE SERVICE DATE: 01/21/2021 SERVICE TIME: 950 LOS: 4 days IMM Follow Up Copy Given: Yes Copy given to:: Patient Method: In Person SIGNATURE: Derik Vargas María PATIENT NAME: Aislinn Wheeler DATE: January 21, 2021 TIME: 11:23 AM PAGER/CONTACT #: [phone] [id number] NoteHNO ID: [id number] Author: Ailyn Salas RN Service: Care Management Author Type: Registered Nurse Type: Care Mgt Progress Note Filed: 01/20/2021 3:29 PM Note Text: CARE MANAGEMENT PROGRESS NOTE SERVICE DATE: 01/20/2021 SERVICE TIME: 3:09 PM LOS: 3 days [place] of Choice Given: Yes Level of Care Discussed: Home Care Financial Disclosure Provided: No Financial Disclosure Comments: [facility] does not service area Provider List: Home [...] sent. Patient does not have a PCP. [facility] can provide a visiting provider [...] 20, 2021 TIME: 3:09 PM PAGER/CONTACT #: [phone] NoteHNO ID: [id number] Author: Inna Hansen DO Service: Hospital Medicine Author Type: Physician Type: Progress Notes Filed: 01/20/2021 12:37 PM Note Text: DEPARTMENT OF HOSPITAL MEDICINE PROGRESS NOTE SERVICE DATE: 01/20/2021 SERVICE TIME: 10:37 AM Hospital Medicine/Primary Attending: Inna Hansen DO NIGHT AND WEEKEND COVERAGE: DELMY COVERAGE: Days: , please contact via [employer] Nights: [phone], please page CC Hospitalist Night coverage pager [phone] Subjective INTERVAL HPI: nausea and vomiting this [...] Non-Pharmacologic VTE Prophylaxis/Anticoagulants 01/17/212214 pneumatic compression stockings ([place], [place]) 01/17/212214 activity - mobilize patient ([place]) VTE Prophylaxis: VTE prophylaxis appropriate Disposition: Primo Hansen DO January 20, 2021 10:39 [facility]-9524 NoteHNO ID: [id number] Author: Benjamin Bernal MD Service: Urology Author [...] Wendy Bernal MD January 19, 2021 4:12 [facility] CampusGfopymbq01-86-0101 NoteHNO ID: [id number] Author: Shelby Lucero PharmD Service: Pharmacy Author Type: Pharmacist Type: Plan of Care Filed: 01/19/2021 11:02 AM Note Text: PHARMACY MEDICATION REVIEW Patient Name: Aislinn Wheeler : 1960 The following medications were updated within the SAMPLE EXAMINER medication list: Medications ADDED to SAMPLE EXAMINER medication list ? Albuterol HFA (replaced nebs) ? Levemir (replaced Lantus) Medications CHANGED on SAMPLE EXAMINER medication list ? Lyrica (added instructions) ? Symbicort (added instructions) Medications REMOVED from SAMPLE EXAMINER medication list ? Diltiazem ? Cymbalta ? [...] nothing too big . Call placed to [facility] pharmacy to clarify prescribed dose of insulin, and the only prescription for insulin [facility] has on file is for Relion 70/30 inject 25 units BID. [facility] pharmacist states this was prescribed 02/19/2020 but never picked up. The below information represents the best possible medication history: Yes Medication history completed by: Pharmacist: Shelby Lucero PharmD Source of history: Patient: Reliability of source: Appears reliable, clearly identified: Medication name and Pharmacy records: [place], [facility] pharmacy (phone call) Medication nonadherence identified: Unable to assess - it is clear the patient is noncompliant with her medications (admits she has been off her meds, no insulin fills at [facility] despite patient report), but at this time unable to assess reason for nonadherence. Reconciliation completed: Yes All SAMPLE EXAMINER medications addressed by LIP and Medication reconciliation completed by: Shelby Lucero PharmD Medications with dose or frequency intentionally adjusted at admission: ? Madison modified to 5/325 mg q6h PRN New medications at admission: ? Ceftriaxone Note patient ordered insulin regimen (Lantus 15 units QHS + sliding scale Humalog) and based on blood glucose readings, this is appropriate Patient interested in Bedside Delivery Services or using CC OP Pharmacy at discharge? Unable to assess Preferred outpatient pharmacy: [facility] [id number] [place] [address] - [address] - [phone] Allergies: Latex Rash Comment:Added based on information [...] Inhale 2 Puffs as instructed twice daily. Diana SernaD 01/19/2021[facility]Ind[facility] HospitalCrqcklte46-63-4446 NoteHNO ID: [id number] Author: Inna Hansen DO Service: Hospital Medicine Author Type: Physician Type: Progress Notes Filed: 01/19/2021 2:24 PM Note Text: DEPARTMENT OF HOSPITAL MEDICINE PROGRESS NOTE SERVICE DATE: 01/19/2021 SERVICE TIME: 9:30 AM Hospital Medicine/Primary Attending: Inna Hansen DO NIGHT AND WEEKEND COVERAGE: DELMY COVERAGE: Days: [phone], please contact via [employer] Nights: [phone], please page CC Hospitalist Night coverage pager [phone] Subjective INTERVAL HPI: no overnight events. Denies [...] Non-Pharmacologic VTE Prophylaxis/Anticoagulants 01/17/212214 pneumatic compression stockings ([place]) 01/17/212214 activity - mobilize patient ([place]) VTE Prophylaxis: VTE prophylaxis appropriate Disposition: Home Discussed with granddaughter Lola by phone with patient's permission. Inna Hansen DO January 19, 2021 9:33 [facility] HospitalKdeaehxk66-23-5386 History of Past illness Narrative* Problem Noted Date Resolved Date Acute cystitis without hematuria 01/18/2021 01/21/2021 Pyelonephritis 01/17/2021 01/21/2021 Sepsis 01/17/2021 01/21/2021 Hyponatremia 01/17/2021 01/21/2021 Hyperkalemia 01/17/2021 01/21/2021 Hydronephrosis due to obstruction of ureter 12/2101/21/2021 documented as of this encounter (statuses as of 01/27/2021) [facility] History of Past illness Narrative* Problem Noted Date Diagnosed Date Resolved Date Acute cystitis without hematuria 01/18/2021 01/21/2021 Pyelonephritis 01/17/2021 01/21/2021 Sepsis 01/17/2021 01/21/2021 Hyponatremia 01/17/2021 01/21/2021 Hyperkalemia 01/17/2021 01/21/2021 Hydronephrosis due to obstruction of ureter 01/17/2021 01/21/2021 documented as of this encounter (statuses as of 06/09/2023) [facility] History of Past illness Narrative* Problem Noted Date Diagnosed Date Resolved Date Acute cystitis without hematuria 01/18/2021 01/21/2021 Pyelonephritis 01/17/2021 01/21/2021 Sepsis 01/17/2021 01/21/2021 Hyponatremia 01/17/2021 01/21/2021 Hyperkalemia 01/17/2021 01/21/2021 Hydronephrosis due to obstruction of ureter 01/17/2021 01/21/2021 documented as of this encounter (statuses as of 06/15/2023) [facility] History of Past illness Narrative* Problem Noted Date Diagnosed Date Resolved Date Acute cystitis without hematuria 01/18/2021 01/21/2021 Pyelonephritis 01/17/2021 01/21/2021 Sepsis 01/17/2021 01/21/2021 Hyponatremia 01/17/2021 01/21/2021 Hyperkalemia 01/17/2021 01/21/2021 Hydronephrosis due to obstruction of ureter 01/17/2021 01/21/2021 documented as of this encounter (statuses as of 06/19/2023) [facility] History of Past illness Narrative* Problem Noted Date Diagnosed Date Resolved Date Acute cystitis without hematuria 01/18/2021 01/21/2021 Pyelonephritis 01/17/2021 01/21/2021 Sepsis 01/17/2021 01/21/2021 Hyponatremia 01/17/2021 01/21/2021 Hyperkalemia 01/17/2021 01/21/2021 Hydronephrosis due to obstruction of ureter 01/17/2021 01/21/2021 documented as of this encounter (statuses as of 06/23/2023) [facility] History of Past illness Narrative* Problem Noted Date Diagnosed Date Resolved Date Acute cystitis without hematuria 01/18/2021 01/21/2021 Pyelonephritis 01/17/2021 01/21/2021 Sepsis 01/17/2021 01/21/2021 Hyponatremia 01/17/2021 01/21/2021 Hyperkalemia 01/17/2021 01/21/2021 Hydronephrosis due to obstruction of ureter 01/17/2021 01/21/2021 documented as of this encounter (statuses as of 07/05/2023) [facility] NoteHNO ID: [id number] Author: Inna Hansen DO Service: Hospital Medicine Author Type: Physician Type: Progress Notes Filed: 01/18/2021 4:10 PM Note Text: DEPARTMENT OF HOSPITAL MEDICINE PROGRESS NOTE SERVICE DATE: 01/18/2021 SERVICE TIME: 8:57 AM Hospital Medicine/Primary Attending: Inna Hansen DO NIGHT AND WEEKEND COVERAGE: DELMY COVERAGE: Days: [phone], please contact via [employer] Nights: [phone], please page CC Hospitalist Night coverage pager [phone] Subjective INTERVAL HPI: no overnight events. Denies [...] Non-Pharmacologic VTE Prophylaxis/Anticoagulants 01/17/212214 pneumatic compression stockings [place]) 01/17/212214 activity - mobilize patient ([place]) VTE Prophylaxis: VTE prophylaxis appropriate Disposition: Home SIGNATURE: Inna Hansen DO PATIENT NAME: Aislinn Wheeler DATE: January 18, 2021 TIME: 8:57 [facility] HospitalWmhxluzp39-91-1695 NoteHNO ID: [id number] Author: Taurus Ballard MD Service: Urology Author [...] cause of her urinary retention. Taurus Ballard [facility] HospitalNjfzrypc28-81-4615 NoteHNO ID: [id number] Author: RT Dayanara(R) Service: Radiology Author Type: Oil Program Compliance Specialist Type: Progress Notes Filed: 01/17/2021 8:04 [...] BY: RT Dayanara(R) January 17, 2021 8:03 [facility] CampusMadamhrn33-89-2046 NoteHNO ID: [id number] Author: RT Dayanara(R) Service: Radiology Author Type: Oil Program Compliance Specialist Type: Progress Notes Filed: 01/17/2021 5:30 [...] BY: RT Dayanara(R) January 17, 2021 5:30 [facility] CampusYyxsyjpe04-63-8290 NoteHNO ID: [id number] Author: Guy Rogers RT(R) Service: Radiology Author Type: Oil Program Compliance Specialist Type: Progress Notes Filed: 01/17/2021 4:23 [...] Workman RT (R) January 17, 2021 4:22 [facility] CampusHakkhoyb71-33-1464 NoteHNO ID: [id number] Author: Wendy Rainey, CT Service: ? Author Type: Clinical Oil Program Compliance Specialist Type: Progress Notes Filed: 01/17/2021 4:19 [...] AHSAN Dozier January 17, 2021 4:19 [facility] Future Appointments Appointment Date:12/13/2022 03:00:00 PM Scheduled Provider:HEIDY ARNOLD PA-C Location:[facility] Appointment Type:URO Office Visit [facility] evaluation + Plan note Future Appointments Appointment Date:10/26/2022 10:00:00 AM Scheduled Provider:Lisa Olvera MD Location:[facility] Appointment Type:URO Office Visit Appointment Date:12/13/2022 03:00:00 PM Scheduled Provider:HEIDY ARNOLD PA-C Location:[facility] Appointment Type:URO Office Visit [facility] evaluation + Plan note Future Appointments Appointment Date:05/03/2023 10:00:00 AM Scheduled Provider:Lisa Olvera MD Location:[facility] Appointment Type:URO Office Visit [facility] evaluation + Plan note Future Appointments Appointment Date:05/03/2023 10:00:00 AM Scheduled Provider:Lisa Olvera MD Location:[facility] Appointment Type:URO Office Visit Diagnostic Tests Pending * Urine [facility] Future Appointments Appointment Date:05/15/2023 12:30:00 PM Scheduled Provider: Location:[facility] Appointment Type:Urology CALL PAT FT Appointment Date:05/22/2023 10:30:00 AM Scheduled Provider: Location:[facility] Appointment Type:Urology FT Diagnostic Tests Pending * Urine Culture [facility] Future Appointments Appointment Date:06/28/2023 10:45:00 AM Scheduled Provider:Lisa Olvera MD Location:[facility] Appointment Type:URO [facility] Future Appointments Appointment Date:06/28/2023 10:45:00 AM Scheduled Provider:Lisa Olvera MD Location:[facility] Appointment Type:URO Office Visit Diagnostic Tests Pending * Urine Culture [facility] Future Appointments Appointment Date:07/18/2023 11:20:00 AM Scheduled Provider:HEIDY ARNOLD PA-C Location:[facility] Appointment Type:URO Office Visit [facility] evaluation + Plan note Future Appointments Appointment Date:10/10/2023 11:40:00 AM Scheduled Provider:HEIDY ARNOLD PA-C Location:[facility] Appointment Type:URO Office Visit [facility] evaltqellp noteNo InformationNoell[facility] [place] Other Evaluation note* Diagnosis Kidney cyst, acquired- Primary Acquired cyst of kidney documented in this encounter [facility] [place] noteNo assessment information [facility] Work Phone: Evaluation note* Diagnosis Other hydronephrosis- Primary Screening for genitourinary condition Screening for other and unspecified genitourinary condition documented in this encounter [facility] [place] [facility]* Diagnosis Retention of urine- Primary Retention of urine, unspecified Screening for genitourinary condition Screening for other and unspecified genitourinary condition Type 2 diabetes mellitus with hyperglycemia, with long-term current use of insulin ([facility]) BURKE (stress urinary incontinence, female) Female stress incontinence documented in this encounter [facility] [place] [facility]* Diagnosis Lung nodule- Primary Solitary pulmonary nodule documented in this encounter [facility] [place] [facility]* Diagnosis Stress incontinence- Primary Female stress incontinence Dysfunctional voiding of urine Unspecified disorder of urethra and urinary tract documented in this encounter [facility] [place] [facility]* Diagnosis Preop examination- Primary Preoperative examination, [...] stress incontinence documented in this encounter [facility] [place] [facility]* Diagnosis Preop examination- Primary Preoperative examination, [...] hydronephrosis documented in this encounter [facility] note* Diagnosis Preop examination- Primary Preoperative [...] long-term current use of insulin ([facility]) Other hydronephrosis BURKE (stress urinary incontinence, female) Female stress incontinence Bladder compliance low Low bladder compliance [facility] Preop examination- Primary Preoperative [...] long-term current use of insulin ([facility]) Screening for genitourinary condition Screening for other and unspecified genitourinary condition [facility] Diagnosis Onset Date Resolution Status Anemia of renal disease acut e B12 deficiency acute CKD stage 3b, GFR 30-44 ml/min acute 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 acute Hyperkalemia acute Hyperparathyroidism acute Hypertensive nephropathy acu te Renal cyst acute [facility] Work Phone: Evaluation note* Diagnosis Encounter for subsequent annual wellness visit (AWV) in Medicare patient- Primary Age related osteoporosis, unspecified pathological fracture presence ([facility]) Stage 3 chronic kidney disease, unspecified whether stage 3a or 3b CKD (HCC) ([facility]) Primary hypertension ([facility]) Unspecified essential hypertension Type 2 diabetes mellitus with hyperglycemia, with long-term current use of insulin ([facility]) Vitamin D deficiency Type 2 diabetes mellitus with diabetic neuropathy, 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 ([facility]) Type 2 diabetes mellitus with foot ulcer, with long-term current use of insulin ([facility]) Stage 3a chronic kidney disease (HCC) ([facility]) Neurogenic bladder Neurogenic bladder, NOS Visual impairment Unspecified visual loss Herpes simplex vulvovaginitis- Primary Primary hypertension ([facility])- Primary Unspecified essential hypertension Type 2 diabetes mellitus with hyperglycemia, with long-term current use of insulin ([facility]) Stage 3 chronic kidney disease, unspecified whether stage 3a or 3b CKD (HCC) ([facility]) Stage 3a chronic kidney disease (HCC) ([facility]) Urinary incontinence without sensory awareness Incontinence without sensory awareness Continuous leakage of urine Continuous leakage Primary hypertension ([facility]/HCC)- Primary Unspecified essential hypertension Acute cystitis without hematuria Type 2 diabetes mellitus with diabetic neuropathy, unspecified whether long-term insulin use ([facility]) UTI symptoms Stage 3a chronic kidney disease (HCC) ([facility]/HCC) Neurogenic bladder Neurogenic bladder, NOS Type 2 diabetes mellitus with hyperglycemia, with long-term current use of insulin ([facility]) Essential (primary) hypertension ([facility]) Unspecified essential hypertension Chronic cough- Primary Cough Type 2 diabetes mellitus with diabetic chronic kidney disease ([facility]/HCC) Chronic kidney disease, stage 3b (HCC) ([facility]/HCC) Hyperparathyroidism, unspecified ([facility]/HCC) Hyperparathyroidism, unspecified Rheumatoid arthritis, unspecified ([facility]) Malignant neoplasm of cervix uteri, unspecified ([facility]) Type 2 diabetes mellitus with hyperglycemia, with long-term current use of insulin ([facility]) Type 2 diabetes mellitus with hyperglycemia, with long-term current use of insulin ([facility])- Primary Type 2 diabetes mellitus with diabetic chronic kidney disease ([facility]/HCC) Chronic kidney disease, stage 3b (HCC) ([facility]/HCC) Hyperparathyroidism, unspecified ([facility]/HCC) Hyperparathyroidism, unspecified Malignant neoplasm of cervix uteri, unspecified ([facility]) Rheumatoid arthritis, unspecified ([facility]) Essential (primary) hypertension ([facility]) Unspecified essential hypertension 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 Iron deficiency anemia, unspecified iron deficiency anemia type Primary hypertension ([facility]) Unspecified essential hypertension Type 2 diabetes mellitus with diabetic neuropathy, 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 ([facility]) RSD (reflex sympathetic dystrophy) Unspecified reflex sympathetic dystrophy Continuous leakage of urine Continuous leakage 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, left, sequela ([facility]) Skin lesion of face Unspecified disorder of skin and subcutaneous tissue documented in this encounter [facility]* Diagnosis Chronic cough- Primary Cough Type 2 diabetes mellitus with diabetic chronic kidney disease (HCC) ([facility]/HCC) Chronic kidney disease, stage 3b (HCC) ([facility]/HCC) Hyperparathyroidism, unspecified ([facility]/HCC) Hyperparathyroidism, unspecified Rheumatoid arthritis, unspecified ([facility]/HCC) Malignant neoplasm of cervix uteri, unspecified ([facility]) Type 2 diabetes mellitus with hyperglycemia, with long-term current use of insulin ([facility]) documented in this encounter [facility]* Diagnosis Chronic cough- Primary Cough documented in this encounter [facility]* Diagnosis Nausea and vomiting, unspecified vomiting type- Primary documented in this encounter [facility]Evaluation [facility]* Diagnosis Reflex sympathetic dystrophy of right upper extremity [facility] Diagnosis Encounter for subsequent annual wellness visit (AWV) in Medicare patient- Primary Age related osteoporosis, unspecified pathological fracture presence ([facility]) Stage 3 chronic kidney disease, unspecified whether stage 3a or 3b CKD (HCC) ([facility]) Primary hypertension ([facility]) Unspecified essential hypertension Type 2 diabetes mellitus with hyperglycemia, with long-term current use of insulin ([facility]) Vitamin D deficiency Type 2 diabetes mellitus with diabetic neuropathy, 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 ([facility]) Type 2 diabetes mellitus with foot ulcer, with long-term current use of insulin ([facility]) Stage 3a chronic kidney disease (HCC) ([facility]) Neurogenic bladder Neurogenic bladder, NOS Visual impairment Unspecified visual loss Herpes simplex vulvovaginitis- Primary Primary hypertension ([facility])- Primary Unspecified essential hypertension Type 2 diabetes mellitus with hyperglycemia, with long-term current use of insulin ([facility]) Stage 3 chronic kidney disease, unspecified whether stage 3a or 3b CKD (HCC) ([facility]) Stage 3a chronic kidney disease (HCC) ([facility]) Urinary incontinence without sensory awareness Incontinence without sensory awareness Continuous leakage of urine Continuous leakage Primary hypertension ([facility])- Primary Unspecified essential hypertension Acute cystitis without hematuria Type 2 diabetes mellitus with diabetic neuropathy, 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 ([facility]) UTI symptoms Stage 3a chronic kidney disease (HCC) ([facility]) Neurogenic bladder Neurogenic bladder, NOS Type 2 diabetes mellitus with hyperglycemia, with long-term current use of insulin ([facility]) Essential (primary) hypertension ([facility]) Unspecified essential hypertension Chronic cough- Primary Cough Type 2 diabetes mellitus with diabetic chronic kidney disease ([facility]) Chronic kidney disease, stage 3b (HCC) ([facility]) Hyperparathyroidism, unspecified ([facility]) Hyperparathyroidism, unspecified Rheumatoid arthritis, unspecified ([facility]) Malignant neoplasm of cervix uteri, unspecified ([facility]) Type 2 diabetes mellitus with hyperglycemia, with long-term current use of insulin ([facility]) Type 2 diabetes mellitus with hyperglycemia, with long-term current use of insulin ([facility])- Primary Type 2 diabetes mellitus with diabetic chronic kidney disease ([facility]/HCC) Chronic kidney disease, stage 3b (HCC) ([facility]) Hyperparathyroidism, unspecified ([facility]) Hyperparathyroidism, unspecified Malignant neoplasm of cervix uteri, unspecified ([facility]) Rheumatoid arthritis, unspecified ([facility]) Essential (primary) hypertension ([facility]) Unspecified essential hypertension 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 Iron deficiency anemia, unspecified iron deficiency anemia type Primary hypertension ([facility]/HCC) Unspecified essential hypertension Type 2 diabetes mellitus with diabetic neuropathy, 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 ([facility]) RSD (reflex sympathetic dystrophy) Unspecified reflex sympathetic dystrophy Continuous leakage of urine Continuous leakage 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, left, sequela ([facility]) Skin lesion of face Unspecified disorder of skin and subcutaneous tissue Essential (primary) hypertension ([facility])- Primary Unspecified essential hypertension Type 2 diabetes mellitus with diabetic neuropathy, unspecified whether long-term insulin use ([facility]) Chronic kidney disease, stage 4 (severe) ([facility]) Neurogenic bladder Neurogenic bladder, NOS Type 2 diabetes mellitus with hyperglycemia, with long-term current use of insulin ([facility]) Other chest pain Continuous leakage of urine Continuous leakage documented in [facility] encounter [facility]* Diagnosis Onset Date Resolution Status Admit Date Anemia of renal disease acute J anuary 2024 11:12am B12 deficiency acute September 042024 11:12am CKD stage 3b, GFR 30-44 ml/min acute September 04, 2024 11:12am 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 acute [facility] 2024 11:12am Hyperkalemia acute August 11:12am Hyperparathyroidism acute 2024 11:12am Hypertensive nephropathy acute September 04, 2024 11:12am Hypomagnesemia acute September 042024 11:12am Iron deficiency anemia acute [facility] 2024 11:12am Neurogenic bladder acute 2024 11:12am Renal cyst acute September 04, 2024 11:12am Vitamin D toxicity acute 2024 11:12am [facility] Work Phone: Evaluation note* Diagnosis Encounter for subsequent annual wellness visit (AWV) in Medicare patient- Primary Age related osteoporosis, unspecified pathological fracture presence ([facility]) Stage 3 chronic kidney disease, unspecified whether stage 3a or 3b CKD (HCC) ([facility]) Primary hypertension ([facility]) Unspecified essential hypertension Type 2 diabetes mellitus with hyperglycemia, with long-term current use of insulin ([facility]) Vitamin D deficiency Type 2 diabetes mellitus with diabetic neuropathy, unspecified whether long-term insulin use ([facility]) Type 2 diabetes mellitus with foot ulcer, with long-term current use of insulin ([facility]) Stage 3a chronic kidney disease (HCC) ([facility]) Neurogenic bladder Neurogenic bladder, NOS Visual impairment Unspecified visual loss Herpes simplex vulvovaginitis- Primary Primary hypertension ([facility])- Primary Unspecified essential hypertension Type 2 diabetes mellitus with hyperglycemia, with long-term current use of insulin ([facility]) Stage 3 chronic kidney disease, unspecified whether stage 3a or 3b CKD (HCC) ([facility]) Stage 3a chronic kidney disease (HCC) ([facility]) Urinary incontinence without sensory awareness Incontinence without sensory awareness Continuous leakage of urine Continuous leakage Primary hypertension ([facility])- Primary Unspecified essential hypertension Acute cystitis without hematuria Type 2 diabetes mellitus with diabetic neuropathy, unspecified whether long-term insulin use ([facility]) UTI symptoms Stage 3a chronic kidney disease (HCC) ([facility]) Neurogenic bladder Neurogenic bladder, NOS Type 2 diabetes mellitus with hyperglycemia, with long-term current use of insulin ([facility]) Essential (primary) hypertension ([facility]) Unspecified essential hypertension Chronic cough- Primary Cough Type 2 diabetes mellitus with diabetic chronic kidney disease ([facility]/HCC) Chronic kidney disease, stage 3b (HCC) ([facility]) Hyperparathyroidism, unspecified ([facility]) Hyperparathyroidism, unspecified Rheumatoid arthritis, unspecified ([facility]) Malignant neoplasm of cervix uteri, unspecified ([facility]) Type 2 diabetes mellitus with hyperglycemia, with long-term current use of insulin ([facility]) Type 2 diabetes mellitus with hyperglycemia, with long-term current use of insulin ([facility])- Primary Type 2 diabetes mellitus with diabetic chronic kidney disease ([facility]/HCC) Chronic kidney disease, stage 3b (HCC) ([facility]) Hyperparathyroidism, unspecified ([facility]) Hyperparathyroidism, unspecified Malignant neoplasm of cervix uteri, unspecified ([facility]) Rheumatoid arthritis, unspecified (CMS/HCC) Essential (primary) hypertension ([facility]) Unspecified essential hypertension 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 Iron deficiency anemia, unspecified iron deficiency anemia type Primary hypertension ([facility]) Unspecified essential hypertension Type 2 diabetes mellitus with diabetic neuropathy, 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 ([facility]) RSD (reflex sympathetic dystrophy) Unspecified reflex sympathetic dystrophy Continuous leakage of urine Continuous leakage 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, left, sequela ([facility]) Skin lesion of face Unspecified disorder of skin and subcutaneous tissue Essential (primary) hypertension ([facility])- Primary Unspecified essential hypertension Type 2 diabetes mellitus with diabetic neuropathy, unspecified whether long-term insulin use ([facility]) Chronic kidney disease, stage 4 (severe) ([facility]) Neurogenic bladder Neurogenic bladder, NOS Type 2 diabetes mellitus with hyperglycemia, with long-term current use of insulin ([facility]) Other chest pain Continuous leakage of urine Continuous leakage Type 2 diabetes mellitus with diabetic neuropathy, with long-term current use of insulin ([facility])- Primary Malignant neoplasm of cervix uteri, unspecified ([facility]) Rheumatoid arthritis, unspecified ([facility]) Essential (primary) hypertension ([facility]) Unspecified essential hypertension Chronic kidney disease, stage 4 (severe) ([facility]) Neurogenic bladder Neurogenic bladder, NOS Type 2 diabetes mellitus with hyperglycemia, with long-term current use of insulin ([facility]) Immunodeficiency due to conditions classified elsewhere ([facility]) 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 ([facility]) documented in this encounter [facility] HealthcareEvaluation [facility]* Diagnosis Complex regional pain syndrome type 1 of right upper extremity- Primary [facility] Diagnosis Reflex sympathetic dystrophy of right upper extremity Complex regional pain syndrome type 1 of right upper extremity [facility] Diagnosis Complex regional pain syndrome type 1 of right upper extremity Reflex sympathetic dystrophy of right upper extremity [facility] Diagnosis Encounter for subsequent annual wellness visit (AWV) in Medicare patient- Primary Age related osteoporosis, unspecified pathological fracture presence ([facility]) Stage 3 chronic kidney disease, unspecified whether stage 3a or 3b CKD (HCC) ([facility]) Primary hypertension ([facility]) Unspecified essential hypertension Type 2 diabetes mellitus with hyperglycemia, with long-term current use of insulin ([facility]) Vitamin D deficiency Type 2 diabetes mellitus with diabetic neuropathy, 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 ([facility]) Type 2 diabetes mellitus with foot ulcer, with long-term current use of insulin ([facility]) Stage 3a chronic kidney disease (HCC) ([facility]) Neurogenic bladder Neurogenic bladder, NOS Visual impairment Unspecified visual loss Herpes simplex vulvovaginitis- Primary Primary hypertension ([facility])- Primary Unspecified essential hypertension Type 2 diabetes mellitus with hyperglycemia, with long-term current use of insulin ([facility]) Stage 3 chronic kidney disease, unspecified whether stage 3a or 3b CKD (HCC) ([facility]) Stage 3a chronic kidney disease (HCC) ([facility]) Urinary incontinence without sensory awareness Incontinence without sensory awareness Continuous leakage of urine Continuous leakage Primary hypertension ([facility])- Primary Unspecified essential hypertension Acute cystitis without hematuria Type 2 diabetes mellitus with diabetic neuropathy, unspecified whether long-term insulin use ([facility]) UTI symptoms Stage 3a chronic kidney disease (HCC) ([facility]) Neurogenic bladder Neurogenic bladder, NOS Type 2 diabetes mellitus with hyperglycemia, with long-term current use of insulin ([facility]) Essential (primary) hypertension ([facility] Unspecified essential hypertension Chronic cough- Primary Cough Type 2 diabetes mellitus with diabetic chronic kidney disease ([facility]) Chronic kidney disease, stage 3b (HCC) ([facility]) Hyperparathyroidism, unspecified ([facility]) Hyperparathyroidism, unspecified Rheumatoid arthritis, unspecified ([facility]) Malignant neoplasm of cervix uteri, unspecified ([facility]) Type 2 diabetes mellitus with hyperglycemia, with long-term current use of insulin ([facility]) Type 2 diabetes mellitus with hyperglycemia, with long-term current use of insulin ([facility])- Primary Type 2 diabetes mellitus with diabetic chronic kidney disease ([facility]) Chronic kidney disease, stage 3b (HCC) ([facility]) Hyperparathyroidism, unspecified ([facility] EMERGENCY) Hyperparathyroidism, unspecified Malignant neoplasm of cervix uteri, unspecified ([facility]) Rheumatoid arthritis, unspecified ([facility]) Essential (primary) hypertension ([facility]) Unspecified essential hypertension 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 Iron deficiency anemia, unspecified iron deficiency anemia type Primary hypertension ([facility]) Unspecified essential hypertension Type 2 diabetes mellitus with diabetic neuropathy, unspecified whether long-term insulin use ([facility]) RSD (reflex sympathetic dystrophy) Unspecified reflex sympathetic dystrophy Continuous leakage of urine Continuous leakage 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, left, sequela ([facility]) Skin lesion of face Unspecified disorder of skin and subcutaneous tissue Essential (primary) hypertension ([facility])- Primary Unspecified essential hypertension Type 2 diabetes mellitus with diabetic neuropathy, 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 ([facility]) Chronic kidney disease, stage 4 (severe) ([facility]) Neurogenic bladder Neurogenic bladder, NOS Type 2 diabetes mellitus with hyperglycemia, with long-term current use of insulin ([facility]) Other chest pain Continuous leakage of urine Continuous leakage Type 2 diabetes mellitus with diabetic neuropathy, with long-term current use of insulin ([facility])- Primary Malignant neoplasm of cervix uteri, unspecified ([facility]) Rheumatoid arthritis, unspecified ([facility]) Essential (primary) hypertension ([facility]) Unspecified essential hypertension Chronic kidney disease, stage 4 (severe) ([facility]) Neurogenic bladder Neurogenic bladder, NOS Type 2 diabetes mellitus with hyperglycemia, with long-term current use of insulin ([facility]) Immunodeficiency due to conditions classified elsewhere ([facility]) care home (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 ([facility]) Encounter for subsequent annual wellness visit (AWV) in Medicare patient- Primary Type 2 diabetes mellitus with diabetic neuropathy, with long-term current use of insulin ([facility]) Essential (primary) hypertension ([facility]) Unspecified essential hypertension Chronic kidney disease, stage 4 (severe) ([facility]) Type 2 diabetes mellitus with hyperglycemia, with long-term current use of insulin ([facility]) Mixed hyperlipidemia ([facility]) Mixed hyperlipidemia Non compliance w medication regimen Type 2 diabetes mellitus with hyperglycemia, with long-term current use of insulin ([facility])- Primary documented in [facility]* Diagnosis Encounter for subsequent annual wellness visit (AWV) in Medicare patient- Primary Age related osteoporosis, unspecified pathological fracture presence ([facility]) Stage 3 chronic kidney disease, unspecified whether stage 3a or 3b CKD (HCC) ([facility]) Primary hypertension ([facility]) Unspecified essential hypertension Type 2 diabetes mellitus with hyperglycemia, with long-term current use of insulin ([facility]) Vitamin D deficiency Type 2 diabetes mellitus with diabetic neuropathy, unspecified whether long-term insulin use ([facility]) Type 2 diabetes mellitus with foot ulcer, with long-term current use of insulin ([facility]) Stage 3a chronic kidney disease (HCC) ([facility]) Neurogenic bladder Neurogenic bladder, NOS Visual impairment Unspecified visual loss Herpes simplex vulvovaginitis- Primary Primary hypertension ([facility])- Primary Unspecified essential hypertension Type 2 diabetes mellitus with hyperglycemia, with long-term current use of insulin ([facility]) Stage 3 chronic kidney disease, unspecified whether stage 3a or 3b CKD (HCC) ([facility]) Stage 3a chronic kidney disease (HCC) ([facility]) Urinary incontinence without sensory awareness Incontinence without sensory awareness Continuous leakage of urine Continuous leakage Primary hypertension ([facility])- Primary Unspecified essential hypertension Acute cystitis without hematuria Type 2 diabetes mellitus with diabetic neuropathy, 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 ([facility]) UTI symptoms Stage 3a chronic kidney disease (HCC) ([facility]) Neurogenic bladder Neurogenic bladder, NOS Type 2 diabetes mellitus with hyperglycemia, with long-term current use of insulin ([facility]) Essential (primary) hypertension ([facility]) Unspecified essential hypertension Chronic cough- Primary Cough Type 2 diabetes mellitus with diabetic chronic kidney disease ([facility]) Chronic kidney disease, stage 3b (HCC) ([facility]) Hyperparathyroidism, unspecified ([facility]) Hyperparathyroidism, unspecified Rheumatoid arthritis, unspecified ([facility]) Malignant neoplasm of cervix uteri, unspecified ([facility]) Type 2 diabetes mellitus with hyperglycemia, with long-term current use of insulin ([facility]) Type 2 diabetes mellitus with hyperglycemia, with long-term current use of insulin ([facility])- Primary Type 2 diabetes mellitus with diabetic chronic kidney disease ([facility]) Chronic kidney disease, stage 3b (HCC) ([facility]) Hyperparathyroidism, unspecified ([facility]) Hyperparathyroidism, unspecified Malignant neoplasm of cervix uteri, unspecified ([facility]) Rheumatoid arthritis, unspecified ([facility]) Essential (primary) hypertension ([facility]) Unspecified essential hypertension 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 Iron deficiency anemia, unspecified iron deficiency anemia type Primary hypertension ([facility]) Unspecified essential hypertension Type 2 diabetes mellitus with diabetic neuropathy, 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 ([facility]) RSD (reflex sympathetic dystrophy) Unspecified reflex sympathetic dystrophy Continuous leakage of urine Continuous leakage 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, left, sequela ([facility]) Skin lesion of face Unspecified disorder of skin and subcutaneous tissue Essential (primary) hypertension ([facility])- Primary Unspecified essential hypertension Type 2 diabetes mellitus with diabetic neuropathy, unspecified whether long-term insulin use ([facility]) Chronic kidney disease, stage 4 (severe) ([facility]) Neurogenic bladder Neurogenic bladder, NOS Type 2 diabetes mellitus with hyperglycemia, with long-term current use of insulin ([facility]) Other chest pain Continuous leakage of urine Continuous leakage Type 2 diabetes mellitus with diabetic neuropathy, with long-term current use of insulin ([facility])- Primary Malignant neoplasm of cervix uteri, unspecified ([facility]) Rheumatoid arthritis, unspecified ([facility]) Essential (primary) hypertension ([facility]) Unspecified essential hypertension Chronic kidney disease, stage 4 (severe) ([facility]) Neurogenic bladder Neurogenic bladder, NOS Type 2 diabetes mellitus with hyperglycemia, with long-term current use of insulin ([facility]) Immunodeficiency due to conditions classified elsewhere ([facility]) care home (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 ([facility]) Encounter for subsequent annual wellness visit (AWV) in Medicare patient- Primary Type 2 diabetes mellitus with diabetic neuropathy, with long-term current use of insulin ([facility]) Essential (primary) hypertension ([facility]) Unspecified essential hypertension Chronic kidney disease, stage 4 (severe) ([facility]) Type 2 diabetes mellitus with hyperglycemia, with long-term current use of insulin ([facility] Mixed hyperlipidemia ([facility]) Mixed hyperlipidemia Non compliance w medication regimen Right foot pain- Primary Pain in soft tissues of limb documented in this encounter [facility]* Diagnosis Encounter for subsequent annual wellness visit (AWV) in Medicare patient- Primary Age related osteoporosis, unspecified pathological fracture presence ([facility]) Stage 3 chronic kidney disease, unspecified whether stage 3a or 3b CKD (HCC) ([facility]) Primary hypertension ([facility]) Unspecified essential hypertension Type 2 diabetes mellitus with hyperglycemia, with long-term current use of insulin ([facility]) Vitamin D deficiency Type 2 diabetes mellitus with diabetic neuropathy, 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 ([facility]) Type 2 diabetes mellitus with foot ulcer, with long-term current use of insulin ([facility]) Stage 3a chronic kidney disease (HCC) ([facility]) Neurogenic bladder Neurogenic bladder, NOS Visual impairment Unspecified visual loss Herpes simplex vulvovaginitis- Primary Primary hypertension ([facility])- Primary Unspecified essential hypertension Type 2 diabetes mellitus with hyperglycemia, with long-term current use of insulin ([facility]) Stage 3 chronic kidney disease, unspecified whether stage 3a or 3b CKD (HCC) ([facility]) Stage 3a chronic kidney disease (HCC) ([facility]) Urinary incontinence without sensory awareness Incontinence without sensory awareness Continuous leakage of urine Continuous leakage Primary hypertension ([facility])- Primary Unspecified essential hypertension Acute cystitis without hematuria Type 2 diabetes mellitus with diabetic neuropathy, unspecified whether long-term insulin use ([facility]) UTI symptoms Stage 3a chronic kidney disease (HCC) ([facility]) Neurogenic bladder Neurogenic bladder, NOS Type 2 diabetes mellitus with hyperglycemia, with long-term current use of insulin ([facility]) Essential (primary) hypertension ([facility]) Unspecified essential hypertension Chronic cough- Primary Cough Type 2 diabetes mellitus with diabetic chronic kidney disease ([facility]) Chronic kidney disease, stage 3b (HCC) ([facility]) Hyperparathyroidism, unspecified ([facility]) Hyperparathyroidism, unspecified Rheumatoid arthritis, unspecified Malignant neoplasm of cervix uteri, unspecified Type 2 diabetes mellitus with hyperglycemia, with long-term current use of insulin ([facility]) Type 2 diabetes mellitus with hyperglycemia, with long-term current use of insulin ([facility])- Primary Type 2 diabetes mellitus with diabetic chronic kidney disease ([facility]) Chronic kidney disease, stage 3b (HCC) ([facility]) Hyperparathyroidism, unspecified ([facility]) Hyperparathyroidism, unspecified Malignant neoplasm of cervix uteri, unspecified Rheumatoid arthritis, unspecified Essential (primary) hypertension ([facility]) Unspecified essential hypertension 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 Iron deficiency anemia, unspecified iron deficiency anemia type Primary hypertension ([facility]) Unspecified essential hypertension Type 2 diabetes mellitus with diabetic neuropathy, unspecified whether long-term insulin use ([facility]) RSD (reflex sympathetic dystrophy) Unspecified reflex sympathetic dystrophy Continuous leakage of urine Continuous leakage 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, left, sequela Skin lesion of face Unspecified disorder of skin and subcutaneous tissue Essential (primary) hypertension ([facility])- Primary Unspecified essential hypertension Type 2 diabetes mellitus with diabetic neuropathy, 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 ([facility]) Chronic kidney disease, stage 4 (severe) ([facility]) Neurogenic bladder Neurogenic bladder, NOS Type 2 diabetes mellitus with hyperglycemia, with long-term current use of insulin ([facility]) Other chest pain Continuous leakage of urine Continuous leakage Type 2 diabetes mellitus with diabetic neuropathy, with long-term current use of insulin ([facility])- Primary Malignant neoplasm of cervix uteri, unspecified Rheumatoid arthritis, unspecified Essential (primary) hypertension ([facility]) Unspecified essential hypertension Chronic kidney disease, stage 4 (severe) ([facility]) Neurogenic bladder Neurogenic bladder, NOS Type 2 diabetes mellitus with hyperglycemia, with long-term current use of insulin ([facility]) Immunodeficiency due to conditions classified elsewhere ([facility]) care home (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 ([facility]) Encounter for subsequent annual wellness visit (AWV) in Medicare patient- Primary Type 2 diabetes mellitus with diabetic neuropathy, with long-term current use of insulin ([facility]) Essential (primary) hypertension ([facility]) Unspecified essential hypertension Chronic kidney disease, stage 4 (severe) ([facility]) Type 2 diabetes mellitus with hyperglycemia, with long-term current use of insulin ([facility]) Mixed hyperlipidemia ([facility]) Mixed hyperlipidemia Non compliance w medication regimen Encounter for subsequent annual wellness visit (AWV) in Medicare patient- Primary RSD (reflex sympathetic dystrophy) Unspecified reflex sympathetic dystrophy Type 2 diabetes mellitus with diabetic neuropathy, with long-term current use of insulin ([facility]) Essential (primary) hypertension ([facility]) Unspecified essential hypertension Chronic kidney disease, stage 4 (severe) ([facility]) Type 2 diabetes mellitus with hyperglycemia, with long-term current use of insulin ([facility]) 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 ([facility]) Non compliance w medication regimen Right foot pain Pain in soft tissues of limb Chest pain, unspecified type Continuous leakage of urine Continuous leakage Neurogenic bladder Neurogenic bladder, NOS documented in this encounter [facility]* Diagnosis Encounter for subsequent annual wellness visit (AWV) in Medicare patient- Primary Age related osteoporosis, unspecified pathological fracture presence ([facility]) Stage 3 chronic kidney disease, unspecified whether stage 3a or 3b CKD (HCC) ([facility]) Primary hypertension ([facility]) Unspecified essential hypertension Type 2 diabetes mellitus with hyperglycemia, with long-term current use of insulin ([facility]) Vitamin D deficiency Type 2 diabetes mellitus with diabetic neuropathy, unspecified whether long-term insulin use ([facility]) Type 2 diabetes mellitus with foot ulcer, with long-term current use of insulin ([facility]) Stage 3a chronic kidney disease (HCC) ([facility]) Neurogenic bladder Neurogenic bladder, NOS Visual impairment Unspecified visual loss Herpes simplex vulvovaginitis- Primary Primary hypertension ([facility])- Primary Unspecified essential hypertension Type 2 diabetes mellitus with hyperglycemia, with long-term current use of insulin ([facility]) Stage 3 chronic kidney disease, unspecified whether stage 3a or 3b CKD ([facility]) ([facility] Stage 3a chronic kidney disease ([facility]) ([facility]) Urinary incontinence without sensory awareness Incontinence without sensory awareness Continuous leakage of urine Continuous leakage Primary hypertension ([facility])- Primary Unspecified essential hypertension Acute cystitis without hematuria Type 2 diabetes mellitus with diabetic neuropathy, 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 ([facility]) UTI symptoms Stage 3a chronic kidney disease (HCC) ([facility]) Neurogenic bladder Neurogenic bladder, NOS Type 2 diabetes mellitus with hyperglycemia, with long-term current use of insulin ([facility]) Essential (primary) hypertension ([facility] Unspecified essential hypertension Chronic cough- Primary Cough Type 2 diabetes mellitus with diabetic chronic kidney disease ([facility]) Chronic kidney disease, stage 3b (HCC) ([facility]) Hyperparathyroidism, unspecified ([facility]) Hyperparathyroidism, unspecified Rheumatoid arthritis, unspecified Malignant neoplasm of cervix uteri, unspecified Type 2 diabetes mellitus with hyperglycemia, with long-term current use of insulin ([facility]) Type 2 diabetes mellitus with hyperglycemia, with long-term current use of insulin ([facility])- Primary Type 2 diabetes mellitus with diabetic chronic kidney disease ([facility]) Chronic kidney disease, stage 3b (HCC) ([facility]) Hyperparathyroidism, unspecified ([facility]) Hyperparathyroidism, unspecified Malignant neoplasm of cervix uteri, unspecified Rheumatoid arthritis, unspecified Essential (primary) hypertension ([facility]) Unspecified essential hypertension 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 Iron deficiency anemia, unspecified iron deficiency anemia type Primary hypertension ([facility]) Unspecified essential hypertension Type 2 diabetes mellitus with diabetic neuropathy, unspecified whether long-term insulin use ([facility]) RSD (reflex sympathetic dystrophy) Unspecified reflex sympathetic dystrophy Continuous leakage of urine Continuous leakage 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, left, sequela Skin lesion of face Unspecified disorder of skin and subcutaneous tissue Essential (primary) hypertension ([facility])- Primary Unspecified essential hypertension Type 2 diabetes mellitus with diabetic neuropathy, unspecified whether long-term insulin use ([facility]) Chronic kidney disease, stage 4 (severe) ([facility]) Neurogenic bladder Neurogenic bladder, NOS Type 2 diabetes mellitus with hyperglycemia, with long-term current use of insulin ([facility]) Other chest pain Continuous leakage of urine Continuous leakage Type 2 diabetes mellitus with diabetic neuropathy, with long-term current use of insulin ([facility])- Primary Malignant neoplasm of cervix uteri, unspecified Rheumatoid arthritis, unspecified Essential (primary) hypertension ([facility]) Unspecified essential hypertension Chronic kidney disease, stage 4 (severe) ([facility]) Neurogenic bladder Neurogenic bladder, NOS Type 2 diabetes mellitus with hyperglycemia, with long-term current use of insulin ([facility]) Immunodeficiency due to conditions classified elsewhere ([facility]) care home (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 ([facility]) Encounter for subsequent annual wellness visit (AWV) in Medicare patient- Primary Type 2 diabetes mellitus with diabetic neuropathy, with long-term current use of insulin ([facility]) Essential (primary) hypertension ([facility]) Unspecified essential hypertension Chronic kidney disease, stage 4 (severe) ([facility]) Type 2 diabetes mellitus with hyperglycemia, with long-term current use of insulin ([facility]) Mixed hyperlipidemia ([facility]) Mixed hyperlipidemia Non compliance w medication regimen Encounter for subsequent annual wellness visit (AWV) in Medicare patient- Primary RSD (reflex sympathetic dystrophy) Unspecified reflex sympathetic dystrophy Type 2 diabetes mellitus with diabetic neuropathy, with long-term current use of insulin ([facility]) Essential (primary) hypertension ([facility]) Unspecified essential hypertension Chronic kidney disease, stage 4 (severe) ([facility]) Type 2 diabetes mellitus with hyperglycemia, with long-term current use of insulin ([facility]) 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 ([facility]) Non compliance w medication regimen Right foot pain Pain in soft tissues of limb Chest pain, unspecified type Continuous leakage of urine Continuous leakage Neurogenic bladder Neurogenic bladder, NOS Acute renal failure, unspecified acute renal failure type ([facility])- Primary Chronic kidney disease, stage 4 (severe) ([facility]) Essential (primary) hypertension ([facility]) Unspecified essential hypertension Type 2 diabetes mellitus with diabetic neuropathy, with long-term current use of insulin ([facility]) History of neurogenic bladder Type 2 diabetes mellitus with hyperglycemia, with long-term current use of insulin ([facility]) care home (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 ([facility]) Non compliance w medication regimen Memory impairment Memory loss Cellulitis of right foot- Primary Laceration of right foot with foreign body, initial encounter Diabetes mellitus due to underlying condition with diabetic polyneuropathy, with long-term current use of insulin ([facility]) documented in this encounter [facility] HealthcareEvaluation note* Diagnosis Encounter for subsequent annual wellness visit (AWV) in Medicare patient- Primary Age related osteoporosis, unspecified pathological fracture presence ([facility]) Stage 3 chronic kidney disease, unspecified whether stage 3a or 3b CKD (HCC) ([facility]) Primary hypertension ([facility]) Unspecified essential hypertension Type 2 diabetes mellitus with hyperglycemia, with long-term current use of insulin ([facility]) Vitamin D deficiency Type 2 diabetes mellitus with diabetic neuropathy, unspecified whether long-term insulin use ([facility]) Type 2 diabetes mellitus with foot ulcer, with long-term current use of insulin ([facility]) Stage 3a chronic kidney disease (HCC) ([facility]) Neurogenic bladder Neurogenic bladder, NOS Visual impairment Unspecified visual loss Herpes simplex vulvovaginitis- Primary Primary hypertension ([facility])- Primary Unspecified essential hypertension Type 2 diabetes mellitus with hyperglycemia, with long-term current use of insulin ([facility]) Stage 3 chronic kidney disease, unspecified whether stage 3a or 3b CKD (HCC) ([facility]) Stage 3a chronic kidney disease (HCC) ([facility]) Urinary incontinence without sensory awareness Incontinence without sensory awareness Continuous leakage of urine Continuous leakage Primary hypertension ([facility])- Primary Unspecified essential hypertension Acute cystitis without hematuria Type 2 diabetes mellitus with diabetic neuropathy, unspecified whether long-term insulin use ([facility]) UTI symptoms Stage 3a chronic kidney disease (HCC) ([facility]) Neurogenic bladder Neurogenic bladder, NOS Type 2 diabetes mellitus with hyperglycemia, with long-term current use of insulin ([facility]) Essential (primary) hypertension ([facility]) Unspecified essential hypertension Chronic cough- Primary Cough Type 2 diabetes mellitus with diabetic chronic kidney disease ([facility]) Chronic kidney disease, stage 3b (HCC) ([facility]) Hyperparathyroidism, unspecified ([facility]) Hyperparathyroidism, unspecified Rheumatoid arthritis, unspecified Malignant neoplasm of cervix uteri, unspecified Type 2 diabetes mellitus with hyperglycemia, with long-term current use of insulin ([facility]) Type 2 diabetes mellitus with hyperglycemia, with long-term current use of insulin ([facility])- Primary Type 2 diabetes mellitus with diabetic chronic kidney disease ([facility]) Chronic kidney disease, stage 3b (HCC) ([facility]) Hyperparathyroidism, unspecified ([facility]) Hyperparathyroidism, unspecified Malignant neoplasm of cervix uteri, unspecified Rheumatoid arthritis, unspecified Essential (primary) hypertension ([facility]) Unspecified essential hypertension 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 Iron deficiency anemia, unspecified iron deficiency anemia type Primary hypertension ([facility]) Unspecified essential hypertension Type 2 diabetes mellitus with diabetic neuropathy, unspecified whether long-term insulin use ([facility]) RSD (reflex sympathetic dystrophy) Unspecified reflex sympathetic dystrophy Continuous leakage of urine Continuous leakage 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, left, sequela Skin lesion of face Unspecified disorder of skin and subcutaneous tissue Essential (primary) hypertension ([facility])- Primary Unspecified essential hypertension Type 2 diabetes mellitus with diabetic neuropathy, unspecified whether long-term insulin use ([facility]) Chronic kidney disease, stage 4 (severe) ([facility]) Neurogenic bladder Neurogenic bladder, NOS Type 2 diabetes mellitus with hyperglycemia, with long-term current use of insulin ([facility]) Other chest pain Continuous leakage of urine Continuous leakage Type 2 diabetes mellitus with diabetic neuropathy, with long-term current use of insulin ([facility])- Primary Malignant neoplasm of cervix uteri, unspecified Rheumatoid arthritis, unspecified Essential (primary) hypertension ([facility]) Unspecified essential hypertension Chronic kidney disease, stage 4 (severe) ([facility]) Neurogenic bladder Neurogenic bladder, NOS Type 2 diabetes mellitus with hyperglycemia, with long-term current use of insulin ([facility]) Immunodeficiency due to conditions classified elsewhere ([facility]) care home (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 ([facility]) Encounter for subsequent annual wellness visit (AWV) in Medicare patient- Primary Type 2 diabetes mellitus with diabetic neuropathy, with long-term current use of insulin ([facility]) Essential (primary) hypertension ([facility]) Unspecified essential hypertension Chronic kidney disease, stage 4 (severe) ([facility]) Type 2 diabetes mellitus with hyperglycemia, with long-term current use of insulin ([facility]) Mixed hyperlipidemia ([facility]) Mixed hyperlipidemia Non compliance w medication regimen Encounter for subsequent annual wellness visit (AWV) in Medicare patient- Primary RSD (reflex sympathetic dystrophy) Unspecified reflex sympathetic dystrophy Type 2 diabetes mellitus with diabetic neuropathy, with long-term current use of insulin ([facility]) Essential (primary) hypertension ([facility]) Unspecified essential hypertension Chronic kidney disease, stage 4 (severe) ([facility]) Type 2 diabetes mellitus with hyperglycemia, with long-term current use of insulin ([facility]) 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 ([facility]) Non compliance w medication regimen Right foot pain Pain in soft tissues of limb Chest pain, unspecified type Continuous leakage of urine Continuous leakage Neurogenic bladder Neurogenic bladder, NOS Acute renal failure, unspecified acute renal failure type ([facility])- Primary Chronic kidney disease, stage 4 (severe) ([facility]) Essential (primary) hypertension ([facility]) Unspecified essential hypertension Type 2 diabetes mellitus with diabetic neuropathy, with long-term current use of insulin ([facility]) History of neurogenic bladder Type 2 diabetes mellitus with hyperglycemia, with long-term current use of insulin ([facility]) 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 ([facility]) Non compliance w medication regimen Memory impairment Memory loss Cellulitis of right foot- Primary Laceration of right foot with foreign body, initial encounter Diabetes mellitus due to underlying condition with diabetic polyneuropathy, with long-term current use of insulin ([facility]) documented in this encounter [facility] HealthcareEvaluation note* Diagnosis Reflex sympathetic dystrophy of right upper extremity- Primary [facility] Diagnosis Reflex sympathetic dystrophy of right upper extremity Complex regional pain syndrome type 1 of right upper extremity Reflex sympathetic dystrophy of right upper extremity- Primary Reflex sympathetic dystrophy of right upper extremity [facility] Diagnosis Encounter for subsequent annual wellness visit (AWV) in Medicare patient- Primary Age related osteoporosis, unspecified pathological fracture presence ([facility]) Stage 3 chronic kidney disease, unspecified whether stage 3a or 3b CKD (HCC) ([facility]) Primary hypertension ([facility]) Unspecified essential hypertension Type 2 diabetes mellitus with hyperglycemia, with long-term current use of insulin ([facility]) Vitamin D deficiency Type 2 diabetes mellitus with diabetic neuropathy, 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 ([facility]) Type 2 diabetes mellitus with foot ulcer, with long-term current use of insulin ([facility]) Stage 3a chronic kidney disease (HCC) ([facility]) Neurogenic bladder Neurogenic bladder, NOS Visual impairment Unspecified visual loss Herpes simplex vulvovaginitis- Primary Primary hypertension ([facility])- Primary Unspecified essential hypertension Type 2 diabetes mellitus with hyperglycemia, with long-term current use of insulin ([facility]) Stage 3 chronic kidney disease, unspecified whether stage 3a or 3b CKD (HCC) ([facility]) Stage 3a chronic kidney disease (HCC) ([facility]) Urinary incontinence without sensory awareness Incontinence without sensory awareness Continuous leakage of urine Continuous leakage Primary hypertension ([facility])- Primary Unspecified essential hypertension Acute cystitis without hematuria Type 2 diabetes mellitus with diabetic neuropathy, 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 ([facility]) UTI symptoms Stage 3a chronic kidney disease (HCC) ([facility]) Neurogenic bladder Neurogenic bladder, NOS Type 2 diabetes mellitus with hyperglycemia, with long-term current use of insulin ([facility]) Essential (primary) hypertension ([facility]) Unspecified essential hypertension Chronic cough- Primary Cough Type 2 diabetes mellitus with diabetic chronic kidney disease ([facility]) Chronic kidney disease, stage 3b (HCC) ([facility]) Hyperparathyroidism, unspecified ([facility]) Hyperparathyroidism, unspecified Rheumatoid arthritis, unspecified Malignant neoplasm of cervix uteri, unspecified Type 2 diabetes mellitus with hyperglycemia, with long-term current use of insulin ([facility]) Type 2 diabetes mellitus with hyperglycemia, with long-term current use of insulin ([facility])- Primary Type 2 diabetes mellitus with diabetic chronic kidney disease ([facility]) Chronic kidney disease, stage 3b (HCC) ([facility]) Hyperparathyroidism, unspecified ([facility]) Hyperparathyroidism, unspecified Malignant neoplasm of cervix uteri, unspecified Rheumatoid arthritis, unspecified Essential (primary) hypertension ([facility]) Unspecified essential hypertension 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 Iron deficiency anemia, unspecified iron deficiency anemia type Primary hypertension ([facility]) Unspecified essential hypertension Type 2 diabetes mellitus with diabetic neuropathy, 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 ([facility]) RSD (reflex sympathetic dystrophy) Unspecified reflex sympathetic dystrophy Continuous leakage of urine Continuous leakage 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, left, sequela Skin lesion of face Unspecified disorder of skin and subcutaneous tissue Essential (primary) hypertension ([facility])- Primary Unspecified essential hypertension Type 2 diabetes mellitus with diabetic neuropathy, 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 ([facility]) Chronic kidney disease, stage 4 (severe) ([facility]) Neurogenic bladder Neurogenic bladder, NOS Type 2 diabetes mellitus with hyperglycemia, with long-term current use of insulin ([facility]) Other chest pain Continuous leakage of urine Continuous leakage Type 2 diabetes mellitus with diabetic neuropathy, with long-term current use of insulin ([facility])- Primary Malignant neoplasm of cervix uteri, unspecified Rheumatoid arthritis, unspecified Essential (primary) hypertension ([facility]) Unspecified essential hypertension Chronic kidney disease, stage 4 (severe) ([facility]) Neurogenic bladder Neurogenic bladder, NOS Type 2 diabetes mellitus with hyperglycemia, with long-term current use of insulin ([facility]) Immunodeficiency due to conditions classified elsewhere ([facility]) 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 ([facility]) Encounter for subsequent annual wellness visit (AWV) in Medicare patient- Primary Type 2 diabetes mellitus with diabetic neuropathy, with long-term current use of insulin ([facility]) Essential (primary) hypertension ([facility]) Unspecified essential hypertension Chronic kidney disease, stage 4 (severe) ([facility]) Type 2 diabetes mellitus with hyperglycemia, with long-term current use of insulin ([facility]) Mixed hyperlipidemia ([facility]) Mixed hyperlipidemia Non compliance w medication regimen Encounter for subsequent annual wellness visit (AWV) in Medicare patient- Primary RSD (reflex sympathetic dystrophy) Unspecified reflex sympathetic dystrophy Type 2 diabetes mellitus with diabetic neuropathy, with long-term current use of insulin ([facility]) Essential (primary) hypertension ([facility]) Unspecified essential hypertension Chronic kidney disease, stage 4 (severe) ([facility]) Type 2 diabetes mellitus with hyperglycemia, with long-term current use of insulin ([facility]) care home (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 ([facility]) Non compliance w medication regimen Right foot pain Pain in soft tissues of limb Chest pain, unspecified type Continuous leakage of urine Continuous leakage Neurogenic bladder Neurogenic bladder, NOS Acute renal failure, unspecified acute renal failure type ([facility])- Primary Chronic kidney disease, stage 4 (severe) ([facility]) Essential (primary) hypertension ([facility]) Unspecified essential hypertension Type 2 diabetes mellitus with diabetic neuropathy, with long-term current use of insulin ([facility]) History of neurogenic bladder Type 2 diabetes mellitus with hyperglycemia, with long-term current use of insulin ([facility]) care home (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 ([facility]) Non compliance w medication regimen Memory impairment Memory loss Chronic kidney disease, stage 4 (severe) ([facility])- Primary Mixed hyperlipidemia ([facility] Mixed hyperlipidemia Essential (primary) hypertension ([facility]) Unspecified essential hypertension Burning with urination Dysuria UTI symptoms Urinary tract infection symptoms Type 2 diabetes mellitus with diabetic neuropathy, with long-term current use of insulin ([facility]) History of neurogenic bladder Neurogenic bladder Neurogenic bladder, NOS 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 Hyperparathyroidism, unspecified ([facility]) Hyperparathyroidism, unspecified B12 deficiency Type 2 diabetes mellitus with hyperglycemia, with long-term current use of insulin ([facility]) Vitamin D deficiency Hypomagnesemia Disorders of magnesium metabolism Non compliance w medication regimen Fatigue, unspecified type documented in this encounter [facility] HealthcareEvaluation note* Diagnosis Reflex sympathetic dystrophy of right upper extremity- Primary Reflex sympathetic dystrophy of right upper extremity Reflex sympathetic dystrophy of right upper extremity [facility] Diagnosis Complex regional pain syndrome type 1 of right upper extremity- Primary [facility] Diagnosis Complex regional pain syndrome type 1 of right upper extremity Reflex sympathetic dystrophy of right upper extremity [facility] Diagnosis Onset Date Resolution Status Admit Date Anemia of renal disease acute J ilsa 2024 1:57pm B12 deficiency acute March 17, [...] 2025 1:57pm Iron deficiency anemia resolved Ju ly 28th, 2025 1:57pm Vitamin D deficiency resolved March 17, 2025 1:57pm [facility] Work Phone: History and physical note Author Alejandro Vallejo [facility] Note Date/Time September 06, 2024 1 2:23am [facility] ENTER [address] [place] [address] Hospitalist H&P Signed Patient: Aislinn Wheeler MR#: [id number] : 1960 Acct:[id number] Age/Sex: 64 / F Adm Date: 5 Loc: Room: [address] [place] [address] Type: ADM IN Attending Dr: Alejandro Vallejo MD Copies to: MD Agusto Pabon, PHOSPHORIC ACID OPERATOR-C~ HPI DATE OF EXAMINATION: 09/06/24 CHIEF COMPLAINT: Abnormal labs HISTORY OF PRESENT ILLNESS: Ms. 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 She had a routine appointment yesterday and was asked to get admitted in the hospital for abnormal labs. She went to [facility] whereshe was treated for urinary tract infection and hypokalemia. She was dischargedtoday and checked with her binding bench worker who recommended her to come to this [...] negative unless noted below or in HPI COUNT INCLUDES THE [facility] Medical History (Updated 09/05/24 @ 20:43 [...] % (Auto) 25.0 % (.) 09/05/24 17:56 Irion % (Auto) 5.8 % (.) 09/05/24 17:56 Eos % (Auto) 2.2 % (.) 09/05/24 17:56 Baso % (Auto) 1.4 % (.) 09/05/24 17:56 Nucleat RBC Rel Count 0.1 /100 WBC (0-0.5) 09/05/24 17:56 Neut # (Auto) 5.5 x10E3/uL (1.8-7.7) 09/05/24 17:56 Lymph # (Auto) 2.1 x10E3/uL (1.00-4.8) 09/05/24 17:56 Irion # (Auto) 0.5 x10E3/uL (0.0-0.8) 09/05/24 17:56 [...] pH 6.0 (5.0-9.0) 09/05/24 18:19 Ur Specific [place] 1.007 (1.001-1.030) 09/05/24 18:19 Urine Protein 70 [...] vitamin D deficiency, diabetes, 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 She went to [facility] where she was treated for urinary tract infection and hypokalemia. She was discharged today and checked with her binding bench worker who recommended her to come to this [...] scale of 1 for history of diabetes -Field Administrative Assistant consulted -May consider urology consult for urine [...] signed by Alejandro Vallejo MD> 09/06/24 0023 [facility] Work Phone: Hiscqih general Narrative - Reported* Type Description Date [...] SURGERY Hospitalization History DKA 2015 Hospitalization History [facility] SEPSIS 05/2022 [employer] Other History general Narrative - Reported* Type [...] SURGERY Hospitalization History DKA 2014 Hospitalization History [facility] SEPSIS 05/2022 [employer] Other Hospital course Narrative No data available for this section [facility] Hospital Discharge instructions No data available for this section [facility] InstructionsNot on filedocumented in this [...] for this section [facility] progress note Author [facility] Note Date/Time September 08, 2024 1 1:42am [facility] [address] [place] [address] Nephrology Progress Note Signed Patient: Aislinn Wheeler MR#: [id number] : 1960 Acct:[id number] Age/Sex: 64 / F Adm Date: 5 Loc: 3T Room: [address] [place] [address] Type: ADM IN Attending Dr: Gilmer Tai [...] complex cystic mass on the kidney at [facility] in 2023.. Patient is known to have neurogenic bladder she uses self cath at home for quitesome time however recently she ran out of supplies. Patient was seen by Dr. Sprague in the office on 115 and had creatinine was found to be 2.7 mg/dL much higher than previous baseline, potassium 5.8 and blood pressure 210/110. Initially she went to the [facility] on 09/04 and she had a [...] Patient was called again to come to [facility] as her potassium continues to be elevated [...] Bitart/Acetaminophen (Hydrocodone/Acetaminophen 7.5-325mg Tablet) 1tab PO Q8HR [facility] Last Admin: 09/08/24 06:08 Dose: 1 tab Atorvastatin Calcium (Atorvastatin 20 Mg Tablet) 20 mg PO DAILY [facility] Stop: 09/07/25 08:59 Last Admin: 09/08/24 08:45 Dose: 20 mg Bethanechol Chloride (Bethanechol 10 Mg Tablet) 10 mg PO TID [facility] Stop: 09/07/25 13:59 Last Admin: 09/08/24 08:44 Dose: 10 mg Dextrose (Dextrose 50% In Water 25 Gm/50 Ml Syringe) 0 gm IV-PUSH PRN PRN PRN Reason: Hypoglycemia Stop: 09/05/25 22:01 Enoxaparin Sodium (Enoxaparin 30 Mg/0.3 Ml Syringe) 30 mg SUBCUT DAILY@1000 [facility] Stop: 09/06/25 09:59 Last Admin: 09/07/24 09:07 Dose: 30 mg Furosemide (Furosemide 40 Mg Tablet) 40 mg PO BID@0800,1600 [facility] Stop: 09/06/25 15:59 Last Admin: 09/08/24 08:44 Dose: 40 mg Glucose (Dextrose 40% Gel 15 Gm Tube) 0 gm PO PRN PRN PRN Reason: Hypoglycemia Stop: 09/05/25 22:01 Hyoscyamine (Hyoscyamine Sulfate 0.125 Mg Tab.Rapdis) 0.125 mg SUBLINGUAL Q4H PRN PRN Reason: Bladder Spasms Stop: 09/06/25 02:45 Last Admin: 09/06/24 20:42 Dose: 0.125 mg Insulin Aspart (Insulin Aspart 300 Units/3 Ml) 0 units SUBCUT TID.[facility]; Protocol Stop: 09/06/25 07:59 Last Admin: 09/08/24 08:45 Dose: Not Given Insulin Glargine (Insulin Glargine 300 Units/3 Ml Insuln.Pen) 28 units SUBCUT QHS [facility] Stop: 09/06/25 21:59 Last Admin: 09/07/24 21:16 Dose: 28 units Metoprolol Succinate (Metoprolol Succinate 50 Mg Tab.Er.24h) 50 mg PO DAILY [facility] Stop: 09/06/25 08:59 Last Admin: 09/08/24 08:45 Dose: 50 mg Oxycodone/Acetaminophen (Oxycodone/Acetaminophen 5-325 Mg Tablet) 1 tab PO Q4H PRN PRN Reason: Pain Scale 4 - 7 Last Admin: 09/06/24 10:18 Dose: 1 tab Pregabalin (Pregabalin 75 Mg Capsule) 75 mg PO BID [facility] Stop: 03/05/25 20:59 Last Admin: 09/08/24 08:52 Dose: 75 mg Sodium Bicarbonate (Sodium Bicarbonate 650 Mg Tablet) 650 mg PO TID [facility] Stop: 09/06/25 19:59 Last Admin: 09/08/24 08:45 [...] of the abdomen that was done at [facility] on 05/05. Renal ultrasound on 09/06/2024 showed [...] stated that she follow-up with urology at [facility] as well. * Continue sodium bicarb 650 [...] also advised to follow-up with urology in [facility] for long-term plan of neurogenic bladder. Patient was informed that she may need urostomy. Documented By: Akin Dougherty MD 09/08/24 1138 Signed By: <Electronically signed by MD Akin Dougherty> 09/08/24 114 [facility] Work Phone: [facility] for referral (narrative)* Diagnostic Procedure Only (Routine) - Pending Review Specialty Diagnoses / Procedures Referred By Danny hensley Referred To Contact US IMAGING Diagnoses Kidney cyst, acquired Procedures US KIDNEY/BLADDER US RETROPERITONEAL REAL TIME W/IMAGE COMPLETE Taurus Ballard MD [address] [id number] [facility] [place] [address] Referral ID Status Reason Start Date Expiration Date Visits Requested Visits Authorized [id number] Pending Review Auto-Generat ed Referral 10/05/2023 08/03/2024 1 1 [facility] for referral (narrative)* Outpatient Procedure (Routine) - New Request Specialty Diagnoses / Procedures Referred By Danny hensley Referred To Contact [facility] Diagnoses Retention of urine BURKE (stress urinary incontinence, female) Procedures FLUROURODYNAMICS WITH EMG EMG STDS ANAL/URTL SPHNCTR OTH/THN NDL Carmenza Espinosa MD [address] [id number] [facility] [address] [place] [address] Referral ID Status Reason Start Date Expiration Date Visits Requested Visits Authorized [id number] New Request Auto-Generat ed Referral 03/26/2024 03/26/[address] [facility] for referral (narrative)* Consultation (Routine) - Pending Review Specialty Diagnoses / Procedures Referred By Contac t Referred To Contact Nephrology Diagnoses Hyperparathyroidism, unspecified (CMS/HCC) Stage 3a chronic kidney disease (HCC) (CMS/HCC) Procedures DE OFFICE/OUTPATIENT NEW HIGH MDM 60 MINUTES Agusto Olmstead NP [address] [place] [address] Tyler Valencia MD [address] [address] Referral ID Status Reason Start Date Expiration Date Visits Requested Visits Authorized [id number] Pending Review Specialty Services Required 04/16/2024 10/13/2024 1 1 Scheduling Instructions Was already seen in practice, needs to re establish 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 Advance Directive(s) 01/17/2021 3:49 PM Advance Directive Response Recorded Date/ Time Advance Directives No April 09, 2024 11:42am Advance Directive Response Recorded Date/ Time Advance Directives No April 09, 2024 10:42am Reason for Referral Specialty Diagnoses / Procedures Referred By Contac t Referred To Contact CT IMAGING Diagnoses Other hydronephrosis Procedures CT UROGRAM WO/W IVCON CT ABD & PELVIS W/WO CONTRST 1+ BODY REGTaurus Gutierrez MD [address] [place] [address] [place] [address] Referral ID Status Reason Start Date Expiration Date Visits Requested Visits Authorized [id number] Pending Review Auto-Generat ed Referral 01/19/2024 02/10/2025 [...] September 04, 2024 1 1:12am sent by Dr, kidney issues September 05, 2024 9:58pm Reason [...] issues September 05, 2024 9:58pm sent by Dr kidney issues September 06, 2024 10:56am Reason [...] issues September 05, 2024 9:58pm sent by Dr kidney issues September 06, 2024 10:56am sent [...] September 05, 2024 9 :58pm Hypertensive nephropathy Magalie 16th, 2 025 9:58pm Iron deficiency anemia September 05 9:58pm Metabolic acidosis September 05, 2024 9 :58pm Urinary retention September 05, 2024 9 :58pm Uropathy, obstructive September 05, 2024 9:58pm Vitamin D deficiency September 05, 2024 9:58pm Chronic kidney disease September 05 9:58pm Acute electrocardiogram changes November 6:09pm Anemia [...] 2024 9 :58pm Hypertensive nephropathy September 05, 025 9:58pm Iron deficiency anemia September 05 9:58pm Urinary retention September 05, 2024 9 :58pm Uropathy, obstructive September 05, 2024 9:58pm Vitamin D deficiency September 05, 2024 9:58pm Chronic kidney disease September 05 9:58pm Acute electrocardiogram changes November 5t h2024 6:09pm Acute kidney injury superimposed on CKD [...] 2024 6:09 pm Chief Complaint Admit Date sent by November [...] 2024 6:09 pm Acute electrocardiogram changes November 5t h2024 6:09pm Acute kidney injury superimposed on CKD November 23, 2024 6:09pm Cellulitis of right foot November 23, 2024 6:09pm Chest pain November 23, 2024 6:09 pm Foreign body in right foot November 23 6:09pm Hyperkalemia November 23, 2024 6:09 pm Hypertensive emergency November 23, 2024 6 :09pm Diabetes November 23, 2024 6:09 pm Chief Complaint Admit Date Unknown February 11, [...] D deficiency March 17, 2025 1:5 7pm Additional Source Comments INFORMATION SOURCE (unrecogn ized section and content) DATE CREATED AUTHOR 01/23/2021 [facility] DATE CREATED AUTHOR AUTHOR'S ORGANIZ ATION 01/04/2023 [facility] DATE CREATED AUTHOR AUTHOR'S ORGANIZ ATION 11/03/2023 [facility] DATE CREATED AUTHOR AUTHOR'S ORGANIZ ATION 03/05/2024 [facility] DATE CREATED AUTHOR AUTHOR'S ORGANIZ ATION 04/02/2024 [facility] DATE CREATED AUTHOR AUTHOR'S ORGANIZ ATION 04/29/2024 [facility] DATE CREATED AUTHOR AUTHOR'S ORGANIZ ATION 06/28/2024 [facility] DATE CREATED AUTHOR AUTHOR'S ORGANIZ ATION 07/08/2024 [facility] DATE CREATED AUTHOR AUTHOR'S ORGANIZ ATION 01/28/2025 [facility] DATE CREATED AUTHOR AUTHOR'S ORGANIZ ATION 02/15/2025 [facility] DATE CREATED AUTHOR AUTHOR'S ORGANIZ ATION 03/18/2025 [facility] Source Comments (unrecognize d section and content) In the event this informatio n is protected by the Federal Confidentiality of Alcohol and Drug Abuse Patient Records regulations: The Federal rules restrict any use of the information to criminally investigate or prosecute any alcohol or drug abuse patient.[facility] the event this information is protected by the Federal Confidentiality of Alcohol and Drug Abuse Patient Records regulations: The Federal rules restrict any use of the information to criminally investigate or prosecute any alcohol or drug abuse patient.[facility] HospitalIn the event this information is protected by the Federal Confidentiality of Alcohol and Drug Abuse Patient Records regulations: The Federal rules restrict any use of the information to criminally investigate or prosecute any alcohol or drug abuse patient.[facility] HospitalIn the event this information is protected by the Federal Confidentiality of Alcohol and Drug Abuse Patient Records regulations: The Federal rules restrict any use of the information to criminally investigate or prosecute any alcohol or drug abuse patient.[facility] HospitalIn the event this information is protected by the Federal Confidentiality of Alcohol and Drug Abuse Patient Records regulations: The Federal rules restrict any use of the information to criminally investigate or prosecute any alcohol or drug abuse patient.[facility] HospitalIn the event this information is protected by the Federal Confidentiality of Alcohol and Drug Abuse Patient Records regulations: The Federal rules restrict any use of the information to criminally investigate or prosecute any alcohol or drug abuse patient.[facility] HospitalIn the event this information is protected by the Federal Confidentiality of Alcohol and Drug Abuse Patient Records regulations: The Federal rules restrict any use of the information to criminally investigate or prosecute any alcohol or drug abuse patient.[facility] HospitalIn the event this information is protected by the Federal Confidentiality of Alcohol and Drug Abuse Patient Records regulations: The Federal rules restrict any use of the information to criminally investigate or prosecute any alcohol or drug abuse patient.[facility] HospitalIn the event this information is protected by the Federal Confidentiality of Alcohol and Drug Abuse Patient Records regulations: The Federal rules restrict any use of the information to criminally investigate or prosecute any alcohol or drug abuse patient.[facility] HospitalIn the event this information is protected by the Federal Confidentiality of Alcohol and Drug Abuse Patient Records regulations: The Federal rules restrict any use of the information to criminally investigate or prosecute any alcohol or drug abuse patient.[facility] Hospital[facility] the event this information is protected by the Federal Confidentiality of Alcohol and Drug Abuse Patient Records regulations: The Federal rules restrict any use of the information to criminally investigate or prosecute any alcohol or drug abuse patient.[facility] HospitalIn the event this information is protected by the Federal Confidentiality of Alcohol and Drug Abuse Patient Records regulations: The Federal rules restrict any use of the information to criminally investigate or prosecute any alcohol or drug abuse patient.[facility] HospitalIn the event this information is protected by the Federal Confidentiality of Alcohol and Drug Abuse Patient Records regulations: The Federal rules restrict any use of the information to criminally investigate or prosecute any alcohol or drug abuse patient.[facility] HospitalIn the event this information is protected by the Federal Confidentiality of Alcohol and Drug Abuse Patient Records regulations: The Federal rules restrict any use of the information to criminally investigate or prosecute any alcohol or drug abuse patient.[facility] HospitalIn the event this information is protected by the Federal Confidentiality of Alcohol and Drug Abuse Patient Records regulations: The Federal rules restrict any use of the information to criminally investigate or prosecute any alcohol or drug abuse patient.[facility] HospitalIn the event this information is protected by the Federal Confidentiality of Alcohol and Drug Abuse Patient Records regulations: The Federal rules restrict any use of the information to criminally investigate or prosecute any alcohol or drug abuse patient.[facility] HospitalIn the event this information is protected by the Federal Confidentiality of Alcohol and Drug Abuse Patient Records regulations: The Federal rules restrict any use of the information to criminally investigate or prosecute any alcohol or drug abuse patient.[facility] HospitalIn the event this information is protected by the Federal Confidentiality of Alcohol and Drug Abuse Patient Records regulations: The Federal rules restrict any use of the information to criminally investigate or prosecute any alcohol or drug abuse patient.[facility] HospitalIn the event this information is protected by the Federal Confidentiality of Alcohol and Drug Abuse Patient Records regulations: The Federal rules restrict any use of the information to criminally investigate or prosecute any alcohol or drug abuse patient.[facility] HospitalIn the event this information is protected by the Federal Confidentiality of Alcohol and Drug Abuse Patient Records regulations: The Federal rules restrict any use of the information to criminally investigate or prosecute any alcohol or drug abuse patient.[facility] HospitalIn the event this information is protected by the Federal Confidentiality of Alcohol and Drug Abuse Patient Records regulations: The Federal rules restrict any use of the information to criminally investigate or prosecute any alcohol or drug abuse patient.[facility] HospitalIn the event this information is protected by the Federal Confidentiality of Alcohol and Drug Abuse Patient Records regulations: The Federal rules restrict any use of the information to criminally investigate or prosecute any alcohol or drug abuse patient.[facility] Reason for Visit (unrecogniz ed section and content) Reason Comments Appointment Reason Comments Follow Up Reason Comments Pre-Op Teaching Reason Comments Surgical Followup Reason Onset Date Comments Research F/U 09/26/2023 Reason Onset Date Comments Research F/U 09/27/2023 Reason Comments Established Patient Reason Comments Results - Ct Reason Comments Consult Established Patient Pt c/o UNCONTROLLED leakage - STOP ICS X2 [id number] Reason Comments Radiology CT Specialty Diagnoses / Procedures Referred By Contac t Referred To Contact CT IMAGING Diagnoses Other hydronephrosis Procedures CT UROGRAM WO/W IVCON CT ABD & PELVIS W/WO CONTRST 1+ BODY REGNS Taurus Ballard MD [address] [place] [id number] Imaging [facility] Referral ID Status Reason Start Date Expiration Date V isits Requested Visits Authorized [id number] Closed Auto-Generate d Referral 01/19/2024 02/10/2025 1 1 Reason Comments Consult Reason Comments On Call Pharmacy Technician - Other Returning Patient's Call Reason Onset [...] Annual Wellness Visit Initial Reason Comments Follow-up [facility] hospital f/up Reason Comments Follow-up Hospital follow up- Reason Onset Date Comments Med Refill 12/18/2024 Reason Comments Arm Injury Reason Onset Date Comments Med Refill 01/15/2025 Reason Comments Diabetes Reason Onset Date Comments Med Refill 02/11/2025 Reason Comments Arm Injury Reason Onset Date Comments Med Refill 03/13/2025 Patient Care team informatio n (unrecognized section and content) Team Status: Active Member Role Status Dates Sumi Lentz APRN PHOSPHORIC ACID OPERATOR-C Primary Care Provider Active Team Status: Active Member Role Status Dates Sumi Lentz APRN PHOSPHORIC ACID OPERATOR-C Primary Care Provider Active Start: April 26, 2024 End: April 27, 2024 Rafi Marcelo DO Attending Provider Active Sta rt: April 26, 2024 End: April 27, 2024 Shaikh Leon MD Active Start: pt2023 End: April 27, 2024 Team Status: Active Member Role Status Dates Sumi Lentz APRN PHOSPHORIC ACID OPERATOR-C Primary Care Provider Active Start: May 10, 2024 Rafi Marcelo DO Attending Provider Active Sta rt: May 10, 2024 Team Status: Inactive Member Role Status Dates Sumi Lentz APRN PHOSPHORIC ACID OPERATOR-C Primary Care Provider Active Start: June 05, 2024 End: June 05, 2024 Eli Sprague MD Attending Provider Active Star t: June 05, 2024 End: June 05, 2024 Chemical Processor Relationship Specialty Start Date End Date Maria Luisa Olmsteada [address] [facility] [address] PCP - General 05/17/23 Lisa Olvera MD [address] [place] [address] Referring Urology 05/11/23 Chemical Processor Relationship Specialty Start Date End Date Maria Luisa Olmstead[address] [address] PCP - General 05/17/23 Lisa Olvera MD [address] [place] [address] Referring Urology 05/11/23 Chemical Processor Relationship Specialty Start Date End Date Agusto Olmstead [address] [place] [address] PCP - General 05/17/23 Lisa Olvera MD [address] [place] [address] Referring Urology 05/11/23 Chemical Processor Relationship Specialty Start Date End Date Maria Luisa Olmsteada [address] [place] [address] PCP - General 05/17/23 Lisa Olvera MD [address] [place] [address] Referring Urology 05/11/23 Chemical Processor Relationship Specialty Start Date End Date Agusto [place] [address] PCP - General 05/17/23 Lisa Olvera MD [address] [place] [address] Referring Urology 05/11/23 Chemical Processor Relationship Specialty Start Date End Date Agusto Olmstead [address] [place] [address] PCP - General 05/17/23 Lisa Olvera MD [address] [place] [address] Referring Urology 05/11/23 Team Status: Inactive Member Role Status Hero Sprague MD Attending Provider Active Star t: August 01, 2023 End: August 01, 2023 Chemical Processor Relationship Specialty Start Date End Date Agusto Olm[place] [address] PCP - General 05/17/23 Lisa Olvera MD [address] [place] [address] Referring Urology 05/11/23 Agusto Olm[place] [address] Referring 01/04/24 Chemical Processor Relationship Specialty Start Date End Date Agusto Olmstead [address] [place] [address] PCP - General 05/17/23 Lisa Olvera MD [address] [place] [address] Referring Urology 05/11/23 Agusto Olmstead [address] [place] [address] Referring 01/04/24 Chemical Processor Relationship Specialty Start Date End Date Agusto Olmstead [address] [place] [address] PCP - General 05/17/23 Lisa Olvera MD [address] [place] [address] Referring Urology 05/11/23 [place] [address] Referring 01/04/24 Chemical Processor Relationship Specialty Start Date End Date Agusto Olmstead [address] [place] [address] PCP - General 05/17/23 Lisa Olvera MD [address] [place] [address] Referring Urology 05/11/23 Agusto Olmstead [address] [place] [address] Referring 01/04/24 Chemical Processor Relationship Specialty Start Date End Date Agusto Olmstead [address] [place] [address] [place] [address] PCP - General 05/17/23 Lisa Olvera MD [address] [place] [address] [place] [address] Referring Urology 05/11/23 Agusto Olmstead [address] [place] [address] [place] [address] Referring 01/04/24 Chemical Processor Relationship Specialty Start Date End Date Agusto Olmstead [address] [place] [address] [place] [address] PCP - General 05/17/23 Lisa Olvera MD [address] [place] [address] [place] [address] Referring Urology 05/11/23 Agusto Olmstead [address] [place] [address] [place] [address] Referring 01/04/24 Chemical Processor Relationship Specialty Start Date End Date Agusto Olmstead [address] [place] [address] [place] [address] PCP - General 05/17/23 Lisa Olvera MD [address] [place] [address] [place] [address] Referring Urology 05/11/[address] [place] [address] [place] [address] Referring 01/04/24 Chemical Processor Relationship Specialty Start Date End Date Agusto Olmstead [address] [place] [address] [place] [address] PCP - General 05/17/23 Lisa Olvera MD [address] [place] [address] [place] [address] Referring Urology 05/11/23 Agusto Olmstead [address] [place] [address] [place] [address] Referring 01/04/24 Chemical Processor Relationship Specialty Start Date End Date Agusto Olmstead [address] [place] [address] [place] [address] PCP - General 05/17/23 Lisa Olvera MD [address] [place] [address] [place] [address] Referring Urology 05/11/23 Agusto Olmstead [address] [place] [address] [place] [address] Referring 01/04/24 Chemical Processor Relationship Specialty Start Date End Date Agusto Olmstead [address] [place] [address] [place] [address] PCP - General 05/17/23 Lisa Olvera MD [address] [place] [address] [place] [address] Referring Urology 05/11/23 Agusto Olmstead [address] [place] [address] [place] [address] Referring 01/04/24 Chemical Processor Relationship Specialty Start Date End Date Kofi Gotti MD [address] [place] [address] PCP - General Family Medicine 10/09/23 Chemical Processor Relationship Specialty Start Date End Date Kofi Gotti MD [address] [place] [address] PCP - General Family Medicine 10/09/23 Chemical Processor Relationship Specialty Start Date End Date JodianilaAgusto salas [address] [place] [address] [place] [address] PCP - General 05/17/23 Lisa Olvera MD [address] [place] [address] [place] [address] Referring Urology 05/11/23 Aysha Agusto [address] [place] [address] [place] [address] Referring 01/04/24 Chemical Processor Relationship Specialty Start Date End Date Kofi Gotti MD [address] [place] [address] PCP - General Family Medicine 10/09/23 Chemical Processor Relationship Specialty Start Date End Date Kofi Gotti MD [address] [place] [address] PCP - General Family Medicine 10/09/23 Chemical Processor Relationship Specialty Start Date End Date Kofi Gotti MD [address] [place] [address] PCP - General Family Medicine 10/09/23 Chemical Processor Relationship Specialty Start Date End Date Kofi Gotti MD [address] [place] [address] PCP - General Family Medicine 10/09/23 Chemical Processor Relationship Specialty Start Date End Date Kofi Gotti MD [address] [place] [address] PCP - General Family Medicine 10/09/23 Chemical Processor Relationship Specialty Start Date End Date Kofi Gotti MD [address] [place] [address] PCP - General Family Medicine 10/09/23 Chemical Processor Relationship Specialty Start Date End Date Kofi Gotti MD [address] [place] [address] PCP - General Family Medicine 06/20/24 Agusto Olmstead NP [address] [place] [address] Nurse Practitioner Family Medicine 06/11/24 Chemical Processor Relationship Specialty Start Date End Date Kofi Gotti MD [address] [place] [address] PCP - General Family Medicine 06/20/24 Agusto Olmstead NP [address] [place] [address] Nurse Practitioner Family Medicine 06/11/24 Chemical Processor Relationship Specialty Start Date End Date Agusto Olmstead, DIRECTOR OF COUNTERINTELLIGENCE-MANAGER CONTROL PCP - General Nurse Practitioner 11/10/22 Chemical Processor Relationship Specialty Start Date End Date Kofi Gotti MD [address] [place] [address] PCP - General Family Medicine 06/20/24 Agusto Olmstead NP [address] [place] [address] Nurse Practitioner Family Medicine 06/11/24 Chemical Processor Relationship Specialty Start Date End Date Kofi Gotti MD [address] [place] [address] PCP - General Family Medicine 06/20/24 Agusto Olmstead NP [address] [place] [address] Nurse Practitioner Family Medicine 06/11/24 Chemical Processor Relationship Specialty Start Date End Date Kofi Gotti MD [address] [place] [address] PCP - General Family Medicine 06/20/24 Agusto Olmstead NP [address] [place] [address] Nurse Practitioner Family Medicine 06/11/24 Team Status: Active Member Role Status Dates Sumi Lentz APRN PHOSPHORIC ACID OPERATOR-C Primary Care Provider Active Start: August 28, 2024 Eli Sprague MD Attending Provider Active Star t: August 28, 2024 Team Status: Inactive Member Role Status Dates Sumi Lentz APRN PHOSPHORIC ACID OPERATOR-C Primary Care Provider Active Start: September [...] 05, 2024 Alejandro Vallejo MD Admit Provider, Attjennifer waing Provider Active Start: September 05, 2024 Chemical Processor Relationship Specialty Start Date End Date Kofi Gotti MD [address] [place] [phone] PCP - General Family Medicine 06/20/24 Agusto Olmstead NP [address] [place] [address] Nurse Practitioner Family Medicine 06/11/24 Team Status: [...] Other Provider Active Start: September 06, 2024 Chemical Processor Relationship Specialty Start Date End Date Agusto Olmstead, ASHVIN-MANAGER CONTROL PCP - General Nurse Practitioner 11/10/22 Chemical Processor Relationship Specialty Start Date End Date Kofi Gotti MD [address] [place] [address] PCP - General Family Medicine 06/20/24 Agusto Olmstead NP [address] [place] [address] Nurse Practitioner Family Medicine 06/11/24 Chemical Processor Relationship Specialty Start Date End Date Kofi Gotti MD [address] [place] [address] PCP - General Family Medicine 06/20/24 Agusto Olmstead NP [address] [place] [address] Nurse Practitioner Family Medicine 06/11/24 Chemical Processor Relationship Specialty Start Date End Date Agusto Olmstead, ASHVIN-MANAGER CONTROL PCP - General Nurse Practitioner 11/10/22 Chemical Processor Relationship Specialty Start Date End Date [facility] P[facility] - General Nurse Practitioner 11/10/22 Chemical Processor Relationship Specialty Start Date End Date [facility] PCP - General Nurse Practitioner 11/10/22 Chemical Processor Relationship Specialty Start Date End Date Kofi Gotti MD [address] [place] [address] PCP - General Family Medicine 06/20/24 Agusto Olmstead NP [address] [place] [address] Nurse Practitioner Family Medicine 06/11/24 Ninfa Canela MA Family Medicine 09/13/24 Chemical Processor Relationship Specialty Start Date End Date [facility]stead [facility] PCP - General Nurse Practitioner 11/10/22 Chemical Processor Relationship Specialty Start Date End Date Kofi Gotti MD [address] [place] [address] PCP - General Family Medicine 06/20/24 Agusto Olmstead NP [address] [place] [address] Nurse Practitioner Family Medicine 06/11/24 Ninfa Canela MA Family Medicine 09/13/24 Chemical Processor Relationship Specialty Start Date End Date Kofi Gotti MD [address] [place] [address] PCP - General Family Medicine 06/20/24 Agusto Olmstead NP [address] [place] [address] Nurse Practitioner Family Medicine 06/11/24 Ninfa Canela MA Family Medicine 09/13/24 Chemical Processor Relationship Specialty Start Date End Date Kofi Gotti MD [address] [place] [address] PCP - General Family Medicine 06/20/24 Agusto Olmstead NP [address] [place] [address] Nurse Practitioner Family Medicine 06/11/24 Ninfa Canela MA Family Medicine 09/13/24 Chemical Processor Relationship Specialty Start Date End Date Kofi Gotti MD [address] [place] [address] PCP - General Family Medicine 06/20/24 Agusto Olmstead NP [address] [place] [address] Nurse Practitioner Family Medicine 06/11/24 Ninfa Canela MA Family Medicine 09/13/24 Chemical Processor Relationship Specialty Start Date End Date Kofi Gotti MD [address] [place] [address] PCP - General Family Medicine 06/20/24 Agusto Olmstead NP [address] [place] [address] Nurse Practitioner [facility] Medicine 06/11/24 Ninfa Canela MA [facility] 09/13/24 Chemical Processor Relationship Specialty Start Date End Date Kofi Gotti MD [address] [place] [address] PCP - General Family Medicine 06/20/24 Agusto Olmstead NP [address] [place] [address] Nurse Practitioner Family Medicine 06/11/24 Ninfa Canela MA [facility] 09/13/24 Team Status: Active Member Role Status [...] Active Start: A pril 2024 Julia Krueger [facility] Other Provider Active Sta rt: November 24, [...] Active Start: A pril 2024 Julia Krueger [facility]- Other Provider Active Sta rt: November 24, 2024 Galo Mcmullen MD Attending Provider Active Start: November 24 Chemical Processor Relationship Specialty Start Date End Date Kofi Gotti MD [address] [place] [address] PCP - General Family Medicine 06/20/24 Agusto Olmstead NP [address] [place] [address] Nurse Practitioner Family Medicine 06/11/24 Ninfa Canela MA Family Medicine 09/13/24 Chemical Processor Relationship Specialty Start Date End Date Kofi Gotti MD [address] [place] [address] PCP - General Family Medicine 06/20/24 Agusto Olmstead NP [address] [place] [address] Nurse Practitioner Family Medicine 06/11/24 Ninfa Canela MA Family Medicine 09/13/24 Chemical Processor Relationship Specialty Start Date End Date Kofi Gotti MD [address] [place] [address] PCP - General Family Medicine 06/20/24 Agusto Olmstead NP [address] [place] [address] Nurse Practitioner Family Medicine 06/11/24 Ninfa Canela MA Family Medicine 09/13/24 Chemical Processor Relationship Specialty Start Date End Date Agusto Olmstead APRN-MANAGER CONTROL PCP - General Nurse Practitioner 11/10/22 Chemical Processor Relationship Specialty Start Date End Date Agusto Olmstead, DIRECTOR OF COUNTERINTELLIGENCE-MANAGER CONTROL PCP - General Nurse Practitioner 11/10/22 Chemical Processor Relationship Specialty Start Date End Date Kofi Gotti MD [address] [place] [address] PCP - General Family Medicine 06/20/24 Agusto Olmstead NP [address] [place] [address] Nurse Practitioner Family Medicine 06/11/24 Ninfa Canela MA Family Medicine 09/13/24 Chemical Processor Relationship Specialty Start Date End Date Kofi Gotti MD [address] [place] [address] PCP - General Family Medicine 06/20/24 Agusto Olmstead NP [address] [place] [address] Nurse Practitioner Family Medicine 06/11/24 Ninfa Canela MA Family Medicine 09/13/24 Chemical Processor Relationship Specialty Start Date End Date Kofi Gotti MD [address] [place] [address] PCP - General Family Medicine 06/20/24 Agusto Olmstead NP [address] [place] [address] Nurse Practitioner Family Medicine 06/11/24 Ninfa Canela [...] Other Provider Active Start: Ap ril 2024 SHASHANK RomeoM Other Provider Active Sta rt: November 24, [...] Active Start: A pril 2024 Julia Krueger [facility] Other Provider Active Sta rt: November 24, [...] Other Provider Active Start: Ap ril 2024 SHASHANK RomeoM Other Provider Active Sta rt: November 24, [...] Start: A pril 2024 Julia Krueger , [facility]- Other Provider Active Sta rt: November 24, 2024 Galo Mcmullen MD Attending Provider Activ e Start: November 24, 2024 Team Status: Inactive Member Role Status Dates Jori Garcia DO Attending Provider Active S tart: February 11, 2025 End: February 11, 2025 Chemical Processor Relationship Specialty Start Date End Date Agusto Olmstead, DIRECTOR OF COUNTERINTELLIGENCE-MANAGER CONTROL PCP - General Nurse Practitioner 11/10/22 Chemical Processor Relationship Specialty Start Date End Date Kapil Maxwell MD [address] [place] [address] [place] [address] PCP - General Family Medicine 02/19/25 Chemical Processor Relationship Specialty Start Date End Date Kapil Maxwell MD [address] [place] [address], [place] [address] PCP - General Family Medicine 02/19/25 Chemical Processor Relationship Specialty Start Date End Date Kapil Maxwell MD [address] [facility], [place] [address] PCP - General Family Medicine 02/19/25 Chemical Processor Relationship Specialty Start Date End Date Kapil Maxwell MD [address] [facility], [place] [address] PCP - General Family Medicine 02/19/25 Team Status: Active Member Role Status Dates PHYSICIAN NO FAMILY Primary Care Provider Active Team Status: Inactive Member Role Status Dates Eli Sprague MD Attending Provider Active Star t: March 17, 2025 End: March 17, 2025 PHYSICIAN NO FAMILY Primary Care Provider Active Start: March 17, 2025 End: March 17, 2025 Goals (unrecognized section and content) Goals may [...] BE BASED ON THE PRIMARY CLINICAL RECORDS. [facility]. provides no warranty or guarantee of the accuracy or completeness of information in this document.
--- NOTE | 2025-04-16 19:14 | ECG_ITS ---
[facility] Test Date: 2025-04-16 Pat Name: AISLINN CARNES Department: Room: - Gender: Female Help Desk Support: : [id number] Requested By: [id number] Order Number: [id number] Reading MD: Michelle Broussard Measurements Intervals [place] Rate: 77 P: 56 MO: 170 QRS: 57 QRSD: 82 T: 38 QT: 404 QTc: 436 Interpretive Statements 1100 Sinus rhythm 9110 normal ECG Compared to ECG 02/11/2025 18:01:39 No significant changes Electronically Signed On 04-18-2025 13:29:11 EDT by Michelle Broussard
--- NOTE | 2025-04-16 19:20 | ED.GENADUL1 ---
HPI HPI - General Adult General Chief complaint: Nausea/Vomiting/Diarrhea Stated complaint: Nausea/Vomiting/Diarrhea Time Seen by Provider: 04/16/25 19:06 Source: patient and family Mode of arrival: walk-in Limitations: no limitations History of Present Illness HPI narrative: This 64-year-old male with a history of kidney disease who is being evaluated for dialysis currently presents for evaluation of nausea vomiting and diarrhea that started upon awakening this morning. She states she woke up with a headache, global in nature. She states she has been vomiting all day. She cannot even keep water down. She states that every time she vomits she has diarrhea. She does not have any specific abdominal pain. She denies any chest pain. She has shortness of breath which is chronic in nature and unchanged at this time. She is concerned that her potassium may be elevated because of her kidney disease. She does have generalized weakness. She has no focal weakness numbness or tingling. She does not have any neck pain or stiffness. She has not had a fever. She has not had any confusion, slurred speech or other neurologic deficits. She does take amlodipine and metoprolol for her blood pressure but due to her nausea and vomiting today she did not take it. Related Data Home Medications ?Medication ?Instructions ?Recorded ?Confirmed insulin lispro 100 unit/mL 1 sliding scale dose subcut QID 05/12/23 04/16/25 subcutaneous pen pregabalin 150 mg capsule 150 mg PO Q8H 05/12/23 04/16/25 hydrocodone 7.5 mg-acetaminophen 1 tab PO Q8H PRN pain 07/07/23 04/16/25 325 mg tablet ferrous sulfate 325 mg (65 mg 325 mg PO DAILY 01/10/24 04/16/25 iron) tablet (FeroSul) B-complex with vitamin C 1 cap PO DAILY 04/26/24 04/16/25 (Support-500 capsule) metoprolol succinate 50 mg 50 mg PO DAILY 04/26/24 04/16/25 tablet,extended release 24 hr amlodipine 10 mg tablet 10 mg PO DAILY 02/12/25 04/16/25 atorvastatin 20 mg tablet (Lipitor) 20 mg PO .QHS 02/12/25 04/16/25 furosemide 40 mg tablet 40 mg PO DAILY 04/16/25 04/16/25 Previous Rx's ?Medication ?Instructions ?Recorded insulin glargine 100 unit/mL (3 28 unit (0.28 mL) subcut QPM #0 mL 01/11/24 mL) subcutaneous pen (Lantus Solostar U-100 Insulin) nitroglycerin 0.4 mg sublingual 0.4 mg sublingual Q5M PRN Pain #10 08/11/24 tablet tabs Allergies Allergy/AdvReac Type Severity Reaction Status Date / Time No Known Drug Allergies Allergy Verified 04/16/25 18:52 Opioid HPI Opioid Management Most Recent Opioid Data: Last Pain Scale 3 02/13/25, 10:00 Last ORT Total Score 0 02/11/25, 23:35 Last ORT Risk Category Low Risk 02/11/25, 23:35 Review of Systems ROS Status of ROS 10 or more systems reviewed and unremarkable except as noted in history and below [facility] Medical History (Updated 04/16/25 @ 23:29 by Sumi Fernandes MD) Neurogenic bladder ?N31.9 - Neuromuscular dysfunction of bladder, unspecified (ICD-10) ANATOLIY (acute kidney injury) ?N17.9 - Acute kidney failure, unspecified (ICD-10) Hyperkalemia ?E87.5 - Hyperkalemia (ICD-10) CKD (chronic kidney disease) ?N18.9 - Chronic kidney disease, unspecified (ICD-10) UTI (urinary tract infection) ?N39.0 - Urinary tract infection, site not specified (ICD-10) Bilateral hydronephrosis ?N13.30 - Unspecified hydronephrosis (ICD-10) RSD (reflex sympathetic dystrophy) ?G90.50 - Complex regional pain syndrome I, unspecified (ICD-10) Osteoporosis ?M81.0 - Age-related osteoporosis without current pathological fracture (ICD-10) Mitral valve prolapse ?I34.1 - Nonrheumatic mitral (valve) prolapse (ICD-10) Hyponatremia ?E87.1 - Hypo-osmolality and hyponatremia (ICD-10) Fatty liver ?K76.0 - Fatty (change of) liver, not elsewhere classified (ICD-10) Cervical cancer ?C53.9 - Malignant neoplasm of cervix uteri, unspecified (ICD-10) Dyspnea on exertion ?R06.09 - Other forms of dyspnea (ICD-10) Back pain ?M54.9 - Dorsalgia, unspecified (ICD-10) Neck pain ?M54.2 - Cervicalgia (ICD-10) Rheumatoid arthritis ?M06.9 - Rheumatoid arthritis, unspecified (ICD-10) Abscess of right foot ?L02.611 - Cutaneous abscess of right foot (ICD-10) Foreign body in foot ?S90.859A - Superficial foreign body, unspecified foot, initial encounter (ICD-10) Anemia ?D64.9 - Anemia, unspecified (ICD-10) Lung nodule ?R91.1 - Solitary pulmonary nodule (ICD-10) Transient ischemic attack (2018) ?G45.9 - Transient cerebral ischemic attack, unspecified (ICD-10) Seasonal allergies ?J30.2 - Other seasonal allergic rhinitis (ICD-10) High cholesterol ?E78.00 - Pure hypercholesterolemia, unspecified (ICD-10) H/O stroke without residual deficits (~2018) ?Z86.73 - Personal history of transient ischemic attack (TIA), and cerebral infarction without residual deficits (ICD-10) CKD (chronic kidney disease) stage 4, GFR 15-29 ml/min ?N18.4 - Chronic kidney disease, stage 4 (severe) (ICD-10) Pneumonia ?J18.9 - Pneumonia, unspecified organism (ICD-10) Acute UTI (urinary tract infection) ?N39.0 - Urinary tract infection, site not specified (ICD-10) Amputation of left great toe ?S98.112A - Complete traumatic amputation of left great toe, initial encounter (ICD-10) 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 ?N18.9 - Chronic kidney disease, unspecified (ICD-10) ?Z85.528 - Personal history of other malignant neoplasm of kidney (ICD-10) Neuropathy ?G62.9 - Polyneuropathy, unspecified (ICD-10) DM2 (diabetes mellitus, type 2) ?E11.9 - Type 2 diabetes mellitus without complications (ICD-10) Chronic renal insufficiency ?N18.9 - Chronic kidney disease, unspecified (ICD-10) Hyperglycemia due to diabetes mellitus ?E11.65 - Type 2 diabetes mellitus with hyperglycemia (ICD-10) Urinary tract infection ?N39.0 - Urinary tract infection, site not specified (ICD-10) HTN (hypertension) ?I10 - Essential (primary) hypertension (ICD-10) Stroke ?I63.9 - Cerebral infarction, unspecified (ICD-10) Lupus ?M32.9 - Systemic lupus erythematosus, unspecified (ICD-10) Arthritis ?M19.90 - Unspecified osteoarthritis, unspecified site (ICD-10) Fibromyalgia ?M79.7 - Fibromyalgia (ICD-10) Diabetes ?E11.9 - Type 2 diabetes mellitus without complications (ICD-10) Chronic kidney disease (CKD) ?N18.9 - Chronic kidney disease, unspecified (ICD-10) Neoplasm of kidney ?D49.519 - Neoplasm of unspecified behavior of unspecified kidney (ICD-10) Surgical History H/O foot surgery ?Z98.890 - Other specified postprocedural states (ICD-10) S/P cataract extraction and insertion of intraocular lens ?Z98.49 - Cataract extraction status, unspecified eye (ICD-10) ?Z96.1 - Presence of intraocular lens (ICD-10) History of colonoscopy ?Z98.890 - Other specified postprocedural states (ICD-10) History of cholecystectomy ?Z90.49 - Acquired absence of other specified parts of digestive tract (ICD-10) Status post ORIF of fracture of ankle ?Z98.890 - Other specified postprocedural states (ICD-10) ?Z87.81 - Personal history of (healed) traumatic fracture (ICD-10) Hx of neck surgery ?Z98.890 - Other specified postprocedural states (ICD-10) History of shoulder surgery ?Z98.890 - Other specified postprocedural states (ICD-10) History of hysterectomy ?Z90.710 - Acquired absence of both cervix and uterus (ICD-10) Family History Brother Family history of CHF (congestive heart failure) Family history of myocardial infarction Father Family history of CHF (congestive heart failure) Family history of COPD (chronic obstructive pulmonary disease) Family history of myocardial infarction Sister Family history of cancer Grandmother Family history of cancer Family history of diabetes mellitus Social History (Updated 02/12/25 @ 00:01 by Diana Dumont RN) Within the past year, how often did you have a drink containing alcohol: never Within the past year, how often did you have six or more drinks on one occasion: never Score interpretation: A score less than 3 is consistent with normal alcohol consumption. Smoking status: Never smoker Second hand tobacco smoke exposure: No Non-prescribed substance use: denies use Known occupational exposures/hazards: No Highest level of school completed/degree received: GED or equivalent Do you want help with school or training: No Are you now , , , , never or living with a partner: In a typical week, how many times do you talk on the telephone with family, friends, or neighbors: 3 or more times per week How often do you get together with friends or relatives: 3 or more times per week How often do you attend taoism or orthodox services: never Do you belong to any clubs or organizations such as taoism groups unions, [employer] or athletic groups, or school groups: no Total score: 1 Score interpretation: A score of less than or equal to 1 indicates the most socially isolated. Little interest or pleasure in doing things: not at all Feeling down, depressed, or hopeless: not at all Feel stressed/tense/nervous/anxious/difficulty sleeping: to some extent Life stressors: other Life stressor details: Personal health Gender Identity: female Exam Narrative Exam Narrative: Vital signs and Nursing Notes reviewed: Patient is afebrile with a normal pulse, blood pressure is markedly elevated at 218/101, she is not hypoxic with pulse ox of 98% on room air General: Awake, alert, oriented, no acute distress, lying comfortably on the stretcher-no respiratory distress, no active vomiting HEENT: Normocephalic atraumatic, mucous membranes are slightly dry, no scleral icterus, vision is grossly intact Neck: Supple, no meningeal signs, no anterior or posterior cervical lymphadenopathy Chest: Lungs are clear to auscultation with good air entry, there is no wheezing rhonchi or rales appreciated no accessory muscle use, patient is speaking in complete sentences-no chest wall tenderness to palpation CVS: Regular rate and rhythm S1-S2, no murmurs rubs or gallops, pulses are brisk and equal bilaterally ABD: Soft, nondistended, nontender, no rebound guarding or rigidity, bowel sounds are normal, no pulsatile masses appreciated Extremities: Moving all extremities, no lower extremity tenderness or swelling noted, negative Homans' sign, pulses are brisk and equal bilaterally Skin: Normal in appearance without rash,pallor, petechiae or purpura Neuro: No focal deficits, speech is clear, there is no facial droop, anesthesiology technologist strength is intact, vision is grossly intact, upper and lower extremity strength and sensation is intact Constitutional Vital Signs, click to edit/add: Last Vital Signs Temp 97.7 F 04/16/25 18:47 Pulse 79 04/16/25 22:40 Resp 16 04/16/25 22:40 BP 168/85 H 04/16/25 22:30 Pulse Ox 98 04/16/25 18:47 O2 Del Method Room Air 04/16/25 18:47 Course Vital Signs Vital signs: Vital Signs Temperature 97.7 F 04/16/25 18:47 Pulse Rate 82 04/16/25 18:47 Respiratory Rate 18 04/16/25 18:47 Blood Pressure 218/101 H 04/16/25 18:47 Pulse Oximetry 98 04/16/25 18:47 Oxygen Delivery Method Room Air 04/16/25 18:47 Temperature 97.7 F 04/16/25 18:47 Pulse Rate 79 04/16/25 22:40 Respiratory Rate 16 04/16/25 22:40 Blood Pressure 168/85 H 04/16/25 22:30 Pulse Oximetry 98 04/16/25 18:47 Oxygen Delivery Method Room Air 04/16/25 18:47 Medical Decision Making MDM Narrative Medical decision making narrative: This 64-year-old female with a history of diabetes and chronic kidney disease presents for evaluation of a headache with nausea vomiting and diarrhea that started earlier this morning. She denies any specific abdominal pain. She states she has vomited multiple times and had multiple episodes of diarrhea which makes her concerned that her potassium was elevated. She complains of generalized weakness. She has no focal weakness. She has no chest pain. She has chronic shortness of breath but denies any increase in her shortness of breath today. She does not have any nuchal rigidity or photophobia or other concerns for meningitis. Her abdomen is soft, lungs are clear. EKG was ordered that is a sinus rhythm at 77 bpm with normal axis. It does not show peaked T waves. An IV was placed and she was given a 500 cc IV fluid bolus, Zofran, Pepcid and 2 mg of morphine. She was given Tylenol after the Zofran started working and she was tolerating ice chips for her headache. Her blood pressure was noted to be markedly elevated upon arrival. She was given 10 mg of IV labetalol. She was placed on the hospital monitor and was continually monitored. Routine labs were ordered. She has normal white count and stable hemoglobin. Sodium is 135. Potassium is 5.2. Chloride is 106 and CO2 is 21.7. Her BUN and creatinine are elevated at 41 and 2.47. This is consistent with her chronic renal failure. Her glucose was elevated at 393 and she was given IV insulin for the elevated glucose. Troponin is normal. X-ray of the chest and abdomen was ordered and reviewed by radiology. It does not show any acute pulmonary infiltrate or sign of bowel obstruction. The patient was given an additional 10 mg of IV labetalol for continually elevated blood pressure. On reevaluation she is feeling better and tolerating clear liquids. Repeat blood pressure is improved in the 160s over 80s. She has not had any episodes of vomiting or diarrhea while in the emergency department. She states she is still feeling unwell but agreeable to being discharged home. Will repeat her glucose and give her an additional dose of Zofran. Lab Data Lab results reviewed: Yes I reviewed the patient's lab results Labs: Lab Results 04/16/25 04/16/25 Range/Units 19:27 23:22 WBC 8.0 (4.0-11.0) 10^3/uL RBC 4.28 (4.20-5.40) 10^6/uL Hgb 11.0 L (12.0-16.0) g/dL Hct 33.9 L (36.0-48.0) % MCV 79.2 L (81.0-99.0) fL MCH 25.7 L (26.7-34.0) pg MCHC 32.4 (29.9-35.2) g/dL RDW 15.0 (11.0-15.0) % Plt Count 214 (150-450) 10^3/uL MPV 11.2 (9.5-13.5) fL Neut % (Auto) 78.9 H (43.0-75.0) % Lymph % (Auto) 15.7 L (20.5-60.0) % Jay % (Auto) 3.5 (1.7-12.0) % Eos % (Auto) 0.6 L (0.9-7.0) % Baso % (Auto) 0.7 (0.2-2.0) % Neut # (Auto) 6.3 (1.4-6.5) 10^3/uL Lymph # (Auto) 1.3 (1.2-3.8) 10^3/uL Jay # (Auto) 0.3 (0.3-0.8) 10^3/uL Eos # (Auto) 0.1 (0.0-0.7) 10^3/uL Baso # (Auto) 0.1 (0.0-0.1) 10^3/uL Abs Immat Gran (auto) 0.05 H (0.00-0.03) 10^3/uL Imm/Tot Granulo (auto) 0.6 H (0.0-0.5) % Sodium 135 L (136-145) mmol/L Potassium 5.2 H (3.5-5.1) mmol/L Chloride 106 (98-107) mmol/L Carbon Dioxide 21.7 (21.0-32.0) mmol/L Anion Gap 12.5 BUN 41.0 H (7.0-18.0) mg/dL Creatinine 2.47 H (0.55-1.02) mg/dL Est GFR ( Amer) 24 L (>=60 mL/min/1.73m^2) Est GFR (Non-Af Amer) 20 L (>=60 mL/min/1.73m^2) BUN/Creatinine Ratio 16.6 Glucose 393 H (74-106) mg/dL Calcium 8.8 (8.5-10.1) mg/dL Total Bilirubin 0.3 (0.2-1.0) mg/dL AST 14 L (15-37) U/L ALT 24 (14-59) U/L Alkaline Phosphatase 131 H (46-116) U/L Troponin I High Sens 16.1 (4.0-51.3) pg/mL Total Protein 7.9 (6.4-8.2) g/dL Albumin 2.9 L (3.4-5.0) g/dL Globulin 5.0 g/dL Albumin/Globulin Ratio 0.6 POC Glucose 194 H (74-106) mg/dL ECG Data Attestation: I personally reviewed and interpreted this ECG as follows: (Sinus rhythm at 77 bpm, normal axis, there are no hyperacute T waves, no acute ST segment elevation or T wave inversion) Discharge Plan Discharge Chief Complaint: Nausea/Vomiting/Diarrhea Clinical Impression: Gastroenteritis, CKD (chronic kidney disease) Patient Disposition: Home, Self-Care Time of Disposition Decision: 23:29 Condition: Good Prescriptions / Home Meds: No Action insulin lispro 100 unit/mL insulin pen 1 sliding scale dose SUBCUT QID Patient Comments: INJECT FOUR UNITS SUBCUTANEOUSLY (UNDER THE SKIN) at BREAKFAST, INJECT 6 (SIX) UNITS at lunch then INJECT EIGHT UNITS SUBCUTANEOUSLY (UNDER THE SKIN) at dinner, plus sliding scale (max 30 UNITS) pregabalin 150 mg capsule 150 mg PO Q8H ferrous sulfate [FeroSul] 325 mg (65 mg iron) tablet 325 mg PO DAILY insulin glargine [Lantus Solostar U-100 Insulin] 100 unit/mL (3 mL) insulin pen 28 unit subcut QPM Qty: 0 0RF hydrocodone-acetaminophen 7.5-325 mg tablet 1 tab PO Q8H PRN (Reason: pain) B-complex with vitamin C [Support-500] Capsule 1 cap PO DAILY metoprolol succinate 50 mg tablet extended release 24 hr 50 mg PO DAILY nitroglycerin 0.4 mg tablet, sublingual 0.4 mg sublingual Q5M PRN (Reason: Pain) Qty: 10 0RF Rx Instructions: do not exceed 3 doses per episode, call MD or go to ED if no response to SL Nitro amlodipine 10 mg tablet 10 mg PO DAILY atorvastatin [Lipitor] 20 mg tablet 20 mg PO .QHS furosemide 40 mg tablet 40 mg PO DAILY Print Language: Belarusian Instructions: Chronic Kidney Disease (ED), Gastroenteritis (ED), Acute Nausea and Vomiting (ED), Acute Diarrhea (ED) Referrals: Physician,Non-Staff, MD [Primary Care Provider] - 1 week
[2025-04-16] MEDS: LABETALOL HCL 20 MG/4 ML SYRINGE 10 MG IVP ×2 (19:30→22:25)
[2025-04-16] MEDS: FAMOTIDINE/PF 20 MG/2 ML VIAL IV (19:30)
[2025-04-16] MEDS: 0.9 % SODIUM CHLORIDE 500 ML IV (19:30)
[2025-04-16 19:37] LABS: Hematocrit 33.9 % (36.0-48.0); Hemoglobin 11.0 g/dL (12.0-16.0); Immature Granulocytes Abs Auto 0.05 10^3/uL (0.00-0.03); Immature Granulocytes Pct Auto 0.6 % (0.0-0.5); Lymphocytes Absolute Auto 1.3 10^3/uL (1.2-3.8); Mean Corpuscular HGB Conc 32.4 g/dL (29.9-35.2); Mean Corpuscular Hemoglobin 25.7 pg (26.7-34.0); Mean Corpuscular Volume 79.2 fL (81.0-99.0); Platelet Count 214 10^3/uL (150-450); Red Blood Count 4.28 10^6/uL (4.20-5.40); White Blood Count 8.0 10^3/uL (4.0-11.0)
[2025-04-16 19:59] LABS: Alanine Aminotransferase 24 U/L (14-59); Albumin Globulin Ratio 0.6; Albumin Level 2.9 g/dL (3.4-5.0); Alkaline Phosphatase 131 U/L (46-116); Anion Gap 12.5; Aspartate Amino Transferase 14 U/L (15-37); Blood Urea Nitrogen 41.0 mg/dL (7.0-18.0); Calcium 8.8 mg/dL (8.5-10.1); Carbon Dioxide 21.7 mmol/L (21.0-32.0); Chloride 106 mmol/L (98-107); Estimated GFR (African America 24 (>=60 mL/min/1.73m^2); Estimated GFR (Non-African Ame 20 (>=60 mL/min/1.73m^2); Globulin 5.0 g/dL; Glucose 393 mg/dL (74-106); Potassium 5.2 mmol/L (3.5-5.1); Sodium 135 mmol/L (136-145); Total Protein 7.9 g/dL (6.4-8.2)
--- NOTE | 2025-04-16 20:48 | XR_ITS ---
The [address] [address] Patient Name: AISLINN CARNES MRN: [id number] date: 1960 Sex: F Assigned Patient Location: ER Current Patient Location: ER Accession/Order Number: [id number] Exam Date: 04/16/2025 20:58 Report Date: 04/16/2025 21:24 At the request of: FEDERICO PLATT MD Procedure: XR acute abdomen series Acute abdominal series COMPARISON: CT abdomen and pelvis 02/12/2025 HISTORY: Vomiting and diarrhea. THORAX: No acute chest findings FREE AIR: Supine position limits assessment BOWEL: Moderate gaseous intestinal distention. STOOL: Mild burden of stool throughout the colon. RENAL STONES: No significant stones present. VASCULAR CALCIFICATIONS: Unremarkable SOFT TISSUE: Unremarkable BONES: Unremarkable POSTSURGICAL CHANGES: Right upper quadrant surgical clips XR/XR acute abdomen series IMPRESSION: Mild gaseous intestinal distention. No free air. No acute chest findings. Mild constipation. Impression dictated by: Jori Ruiz M.D. 04/16/2025 9:24 PM Dictation Location: [facility] Electronically authenticated by: [id number] Y Date: 04/16/2025 21:24
[2025-04-16] MEDS: 0.9 % SODIUM CHLORIDE 1,000 ML 100 ML IV (21:12)
[2025-04-16] MEDS: INSULIN REGULAR, HUMAN (100 UNIT/ML) 10 ML MDV 6 UNIT IV (21:12)
[2025-04-16] MEDS: MORPHINE SULFATE 2 MG/ML SYRINGE IV (21:13)
[2025-04-16] MEDS: ACETAMINOPHEN 325 MG TABLET 650 MG PO (22:24)
[2025-04-16] MEDS: ONDANSETRON 4 MG RAPDIS TABLET SL (23:35)
== END 2025-04-16 23:49 | disposition home or self-care (01) ==
PROVIDERS: Emergency Provider Emergency Medicine
DX: K52.9 Noninfective gastroenteritis and colitis, unspecified (principal); N18.9 Chronic kidney disease, unspecified; R06.02 Shortness of breath; Z79.899 Other long term (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; Z98.49 Cataract extraction status, unspecified eye; Z96.1 Presence of intraocular lens; Z90.49 Acquired absence of other specified parts of digestive tract; Z90.710 Acquired absence of both cervix and uterus; E11.22 Type 2 diabetes mellitus with diabetic chronic kidney disease; R51.9 Headache, unspecified; E11.65 Type 2 diabetes mellitus with hyperglycemia; Z79.4 Long term (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
CPT/HCPCS: 36415; 74022; 80053; 84484; 85025; 93005; 96361; 96374; 96375; 96376; 99285; J1817; J1920; J2270; J2405; J3490; Q0162

== ENCOUNTER 2025-05-05 11:14 | Outpatient (OUT) | payer MEDICARE, SELFPAY ==
[2025-05-05 11:42] LABS: Hematocrit 34.2 % (36.0-48.0); Hemoglobin 11.1 g/dL (12.0-16.0); Mean Corpuscular HGB Conc 32.5 g/dL (29.9-35.2); Mean Corpuscular Hemoglobin 26.2 pg (26.7-34.0); Mean Corpuscular Volume 80.9 fL (81.0-99.0); Platelet Count 241 10^3/uL (150-450); Red Blood Count 4.23 10^6/uL (4.20-5.40); White Blood Count 8.6 10^3/uL (4.0-11.0)
[2025-05-05 12:11] LABS: Protein Creatinine Ratio Urine 5.63; Total Protein Urine Random 196.6 mg/dL (<=11.9)
[2025-05-05 12:13] LABS: Albumin Level 2.9 g/dL (3.4-5.0); Anion Gap 15.9; Blood Urea Nitrogen 49.0 mg/dL (7.0-18.0); Calcium 8.9 mg/dL (8.5-10.1); Carbon Dioxide 20.2 mmol/L (21.0-32.0); Chloride 103 mmol/L (98-107); Estimated GFR (African America 17 (>=60 mL/min/1.73m^2); Estimated GFR (Non-African Ame 14 (>=60 mL/min/1.73m^2); Glucose 481 mg/dL (74-106); Magnesium 1.8 mg/dL (1.8-2.4); Potassium 5.1 mmol/L (3.5-5.1); Sodium 134 mmol/L (136-145); Uric Acid 7.0 mg/dL (2.6-6.0)
[2025-05-05 12:15] LABS: Iron 31.0 ug/dL (50.0-170.0); Percent Iron Saturation 10.8 %; Total Iron Binding Capacity 287.0 ug/dL (250.0-450.0)
[2025-05-05 13:51] LABS: Ferritin 333.0 ng/mL (8.0-252.0); Folate 12.30 ng/mL (8.60-58.90)
[2025-05-06 08:08] LABS: Vitamin B12 342 pg/mL (232-1245)
== END 2025-05-05 11:15 | disposition home or self-care (01) ==
LOC: LAB 11:14
PROVIDERS: Visit Provider Internal Medicine Nephrology
DX: N18.4 Chronic kidney disease, stage 4 (severe) (principal); E83.42 Hypomagnesemia; N31.9 Neuromuscular dysfunction of bladder, unspecified; E53.8 Deficiency of other specified B group vitamins; N28.1 Cyst of kidney, acquired
CPT/HCPCS: 36415; 80069; 82306; 82570; 82607; 82728; 82746; 83540; 83550; 83735; 83970; 84156; 84550; 85027

== ENCOUNTER 2025-06-04 10:48 | Outpatient (OUT) | payer MEDICARE, SELFPAY ==
--- OUTSIDE RECORDS SUMMARY | 2025-06-04 11:04 | XMS_ITS | CCD ---
Author Organization [facility] CliniSyvt Care Team Providers Care Adult Ministries Director Name Role Phone Pcp, No Primary Care Provider Unavailabl e AGUSTO OLMSTEAD Primary Care Physician [phone] ZaRonan russoyanet Unavailable AICHMUNDO, E BUSINESS CONSULTANT AGUSTO Attending Unavailable AICHHOLZ, E BUSINESS CONSULTANT AGUSTO Consulting Unavailable AICHHOLZ, E BUSINESS CONSULTANT AGUSTO Admitting Unavailable AICHHOLZ, E BUSINESS CONSULTANT AGUSTO Primary Care Unavailable RAMON ENRIQUE Attending Unavailable RAMON ENRIQUE Admitting Unavailable REQUEST, DR DANNIE LISTED Primary Care Unavaila georgi DELVALLE, DR THANH García Consulting Unavailable RAMON ENRIQUE Consulting Unavailable AICHHOLZ, E BUSINESS CONSULTANT AGUSTO Primary Care Unavailable RAMON ENRIQUE Admitting Unavailable RAMON ENRIQUE Attending Unavailable AICHHOLZ, E BUSINESS CONSULTANT AGUSTO Primary Care Unavailable CLARIBEL, H Consulting Unavailable FAWWAD, AMADO H Admitting Unavailable FAWWABhavani AMADO H Attending Unavailable AICHHOLZ, E BUSINESS CONSULTANT AGUSTO Consulting Unavailable AICHHOLZ, E BUSINESS CONSULTANT AGUSTO Admitting Unavailable AICHHOLZ, E BUSINESS CONSULTANT AGUSTO Attending Unavailable AICHHOLZ, E BUSINESS CONSULTANT AGUSTO Primary Care Unavailable RAMON ENRIQUE Attending Unavailable AICHHOLZ, E BUSINESS CONSULTANT AGUSTO Primary Care Unavailable RAMON ENRIQUE Admitting Unavailable WEST, DR NUBIA Carlos Consulting Unavailable RAMON ENRIQUE Consulting Unavailable AICHHOLZ, E BUSINESS CONSULTANT AGUSTO Primary Care Unavailable BHARAT, DR NUBIA Carlos Consulting Unavailable CAMMIE SEGURA Admitting Unavailable CAMMIE SEGURA Attending Unavailable CAMMIE SEGURA Consulting Unavailable AICHHOLZ, E BUSINESS CONSULTANT AGUSTO Primary Care Unavailable AICHHOLZ, E BUSINESS CONSULTANT AGUSTO Attending Unavailable AICHHOLZ, E BUSINESS CONSULTANT AGUSTO Admitting Unavailable BHARAT, DR NUBIA Carlos Consulting Unavailable AICHHOLZ, E BUSINESS CONSULTANT AGUSTO Consulting Unavailable AICHHOLZ, E BUSINESS CONSULTANT AGUSTO Primary Care Unavailable COLTON, CAMMIE Admitting Unavailable COLTONCAMMIE Attending Unavailable COLTON, CAMMIE Consulting Unavailable AICHHOLZ, E BUSINESS CONSULTANT AGUSTO Primary Care Unavailable AICHHOLZ, E BUSINESS CONSULTANT AGUSTO Attending Unavailable AICHHOLZ, E BUSINESS CONSULTANT AGUSTO Consulting Unavailable AICHHOLZ, E BUSINESS CONSULTANT AGUSTO Admitting Unavailable AICHHOLZ, E BUSINESS CONSULTANT AGUSTO Primary Care Unavailable BHARAT, DR NUBIA Carlos Consulting Unavailable COLTON, CAMMIE Admitting Unavailable COLTON, CAMMIE Attending Unavailable COLTON, CAMMIE Consulting Unavailable AICHHOLZ, E BUSINESS CONSULTANT AGUSTO Primary Care Unavailable ZIEBER, DR THANH García Consulting Unavailable HIGHLANDER, PETER D Attending Unavailable HIGHLANDER, PETER D Admitting Unavailable HIGHLANDER, PETER D Consulting Unavailable AICHHOLZ, E BUSINESS CONSULTANT AGUSTO Primary Care Unavailable FOSTER ., DR PAGE Admitting Unavailable FOSTER ., DR PAGE Attending Unavailable FOSTER ., DR PAGE Consulting Unavailable ZIEBER, DR THANH García Consulting Unavailable HIGHLANDER, PETER D Admitting Unavailable AICHHOLZ, E BUSINESS CONSULTANT AGUSTO Primary Care Unavailable ZIEBER, DR THANH García Consulting Unavailable HIGHLANDER, PETER D Attending Unavailable HIGHLANDER, PETER D Consulting Unavailable AICHHOLZ, E BUSINESS CONSULTANT AGUSTO Primary Care Unavailable AICHHOLZ, E BUSINESS CONSULTANT AGUSTO Attending Unavailable AICHHOLZ, E BUSINESS CONSULTANT AGUSTO Consulting Unavailable AICHHOLZ, E BUSINESS CONSULTANT AGUSTO Admitting Unavailable ZIEBER, DR THANH García Consulting Unavailable AICHHOLZ, E BUSINESS CONSULTANT AGUSTO Primary Care Unavailable ZIEBER, DR THANH García Consulting Unavailable HIGHLANDER, PETER D Attending Unavailable HIGHLANDER, PETER D Admitting Unavailable HIGHLANDER, PETER D Consulting Unavailable AICHHOLZ, E BUSINESS CONSULTANT AGUSTO Primary Care Unavailable MORENITAEBER, DR THANH García Consulting Unavailable COLTON, CAMMIE Admitting Unavailable COLTON, CAMMIE Attending Unavailable COLTON, CAMMIE Consulting Unavailable WANDY .RAQUEL Admitting Unavailable WANDY .RAQUEL Attending Unavailable KASIE CANDELARIO Consulting Unavailable REQUEST, DR PANDEY LISTED Primary Care Unavaila georgi SABA .RAQUEL Consulting Unavailable LYLE MATIAS Consulting Unavailable AICHHOLZ, E BUSINESS CONSULTANT AGUSTO Primary Care Unavailable HAY ., DR CARMONA Admitting Unavailable HAY ., DR CARMONA Attending Unavailable HAY ., DR CARMONA Consulting Unavailable TONY LUO Consulting Unavailable NUBIA BATEMAN Consulting Unavailable AICHHOLZ, E BUSINESS CONSULTANT AGUSTO Primary Care Unavailable HIGHLANDER, PETER D Admitting Unavailable HIGHLANDER, PETER D Attending Unavailable HIGHLANDER, PETER D Admitting Unavailable AICHHOLZ, E BUSINESS CONSULTANT AGUSTO Primary Care Unavailable WILLYANDER, RAMON Tillman Attending Unavailable HIGHLANDER, RAMON Tillman Admitting Unavailable AICHHOLZ, E BUSINESS CONSULTANT AGUSTO Primary Care Unavailable ADELIA, DR THANH García Consulting Unavailable HIGHLANDER, RAMON Tillman Attending Unavailable HIGHLANDER, RAMON Tillman Consulting Unavailable HIGHLANDER, RAMON Tillman Admitting Unavailable AICHHOLZ, E BUSINESS CONSULTANT AGUSTO Primary Care Unavailable YUKO, RAMON Tillman Attending Unavailable YUKO, RAMON Tillman Attending Unavailable HIGHLANDER, RAMON Tillman Admitting Unavailable REQUEST, DR NONE LISTED Primary Care Unavaila ble WILLYANDER, RAMON Tillman Admitting Unavailable AICHHOLZ, E BUSINESS CONSULTANT AGUSTO Primary Care Unavailable HIGHLANDER, RAMON Tillman Attending Unavailable HIGHLANDER, RAMON Tillman Admitting Unavailable AICHHOLZ, E BUSINESS CONSULTANT AGUSTO Primary Care Unavailable HIGHLANDER, RAMON Tillman [...] Procedure Practitioner Unava TONY [place]agen[place] Consulting Unavailable ARMON ENRIQUE Consulting Unavailable BRANDO, KWADWO Consulting Unavailable NUBIA BATEMAN Unavailable GURU DAVISON Consulting Unavailable FRED, KAPIL Consulting Unavailable ROSELIA ., LISA JIMENEZ Consulting Unavailable GEMBUSCAMDEN Consulting Unavailable REJI SMALLWOOD Consulting Unavailable AICHHOLZ, E BUSINESS CONSULTANT AGUSTO Primary Care Unavailable [place], DR NUBIA Carlos Consulting Unavailable CAMMIE SEGURA Admitting Unavailable CAMMIE SEGURA Attending Unavailable CAMMIE SEGURA Consulting Unavailable YUKO, RAMON Tillman Admitting Unavailable AICHHOLZ, E BUSINESS CONSULTANT AGUSTO Primary Care Unavailable ADELIA, DR THANH García Consulting Unavailable YUKO, RAMON Tillman Attending Unavailable YUKO, RAMON Tillman Consulting Unavailable Fitt, Brigette Unavailable Mapus, Jenniferdra Unavailable Lisa Olvera MD Unavailable Aysha, Agusto Primary Care Provider [phone] Vern TAVERAS, Lisa Pulido Unavailable Lisa Olvera Referring Unavailable Lue, Lisa M. Admitting Unavailable Lue, Lisa M. Attending Unavailable CATALINAPROMISE Attending Unavailab le CATALINA, PROMISE HEIDY Jennifer Admitting Unavailab le CATALINA, PROMISE HEIDY E Attending Unavailab le CATALINA, PROMISE HEIDY E Admitting Unavailab le CATALINA, PROMISE EHIDY E Attending Unavailab le CATALINA, PROMISE HEIDY [...] Kofi Gotti MD Primary Care Provider Aysha CATCHER PLUG-E BUSINESS CONSULTANTAgusto Primary Care Provider Maria Luisa Olmsteada Walter [facility] Yoni TAVERAS, Alejandro Admit Provider Yoni TAVERAS, Alejandro Attending Provider [phone] Gilmer Tai MD Attending Provider [phone] Ladonna TAVERAS, Akin Other Provider Abhishek Castañeda MD Other Provider Ninfa Canela MA Unavailable Unavailable Aichholz CATCHER PLUGKIARA, Agusto Watson Primary Care Provider Agusto Olmstead Primary Care Provider [facility] Emergency Provider Yoni TAVERAS, Alejandro Admit Provider Gilmer Tai MD Attending Provider Ladonna TAVERAS, Akin Other Provider Abhishek Castañeda MD Other Provider Jr Layne DO Emergency Provider Diane Smith MD Admit Provider Diane Smith MD Attending Provider Tyler Valencia MD Other Provider Karthik BAKER, Cory Shoemaker Other Provider Demian Dorantes MD Attending Provider [phone] AICHHOLZ, AGUSTO Attending Unavailable AICHHOLZ, AGUSTO Attending Unavailable AICHHOLZ, AGUSTO Attending Unavailable AICHHOLZ, AGUSTO Attending Unavailable CORY ANGELES Attending Unavailable AICHHOLZ, AGUSTO Attending Unavailable AICHHOLZ, AGUSTO Attending Unavailable AICHHOLZ, AGUSTO Attending Unavailable AICENRICO, AGUSTO Attending Unavailable Agusto Olmstead Primary Care Provider [phone] Jr Layne DO Emergency Provider Unavailable Luis TAVERAS, Diane Other Provider Tyler Valencia MD Attending Provider Skip LE, Suzy Other Provider Unavailable Nasim Alcazar DO Other Provider Leonila TAVERAS, Sal Other Provider Betina TAVERAS, Zackery Page Other Provider David TAVERAS, Annette Other Provider [phone] Rudolph TAVERAS, Clinton Other Provider Aislinn Diaz APRN Other Provider [phone] Dami TAVERAS, Shyann Other Provider Jerald TAVERAS, Felecia Oro Other Provider Jeffrey TAVERAS, Shankar Other Provider [facility], Julia Villafana Other Provider Kemi TAVERAS, Galo Fu Attending Provider Jori Garcia DO Attending Provider [phone] Kapil Maxwell MD Primary Care Provider [phone] Celestine TAVERAS, Eli Attending Provider NO FAMILY, PHYSICIAN Primary Care Provider Unava ilable SWETA CH Attending Unavailable AICHHOLZ, AGUSTO J Referring Unavailable AICHHOLZ, AGUSTO J Primary Care Unavailable VERSWETA ENCINAS Attending Unavailable AICHHOLZ, AGUSTO J Referring Unavailable AICHHOLZ, AGUSTO J Primary Care Unavailable VERHOFFSWETA Attending Unavailable AICHHOLZ, AGUSTO J Referring Unavailable AICHHOLZ, AGUSTO J Primary Care Unavailable VERSWETA ENCINAS Attending Unavailable AICHHOLZ, AGUSTO J Referring Unavailable AICHHOLZ, AUGSTO J Primary Care Unavailable ZACKERY MIRANDA Admitting Unavailable ZACKERY MIRANDA Attending Unavailable AICHHOLZ, AGUSTO J Referring Unavailable AICHHOLZ, AGUSTO J Primary Care Unavailable ZACKERY MIRANDA Attending Unavailable ZACKERY MIRANDA Referring Unavailable KAPIL MAXWELL Primary Care Unavailable SWETA CH Attending Unavailable AGUSTO OLMSTEAD Referring Unavailable GLORIA MAXWELLLAS Ashok Primary Care Unavailable Aleksey Clemente DO Emergency Provider Ankush Farmer MD Admit Provider Ankush Farmer MD Attending Provider [phone] Ankush Farmer MD Other Provider [phone] Eli Sprague MD Other Provider Domneico Kirk MD Attending Provider [phone] Rajendra Nielsen Admitting UnavailRajendra Sanders Attending Unavailisidra e NO FAMILY, PHYSICIAN Primary Care Unavailable NO FAMILY, PHYSICIAN Primary Care Unavailable Eli Sprague Admitting Unavailable Eli Sprague Attending Unavailable Demian Dorantes Attending Unavailab Tyler Andres Consulting Unavailable Diane Smith Admitting Unavailable Agusto Olmstead Primary Care Unavailable Cory Angeles Consulting Unavailable Gilmer Tai Attending Unavailable Alejandro Vallejo Admitting Unavailable Akin Dougherty Consulting Unavailable Agusto Olmstead Primary Care Unavailable Abhishek Castañeda Consulting Unavailable Ankush Farmer Admitting Unavailable NO FAMILY, PHYSICIAN Primary Care Unavailable Eli Sprague Consulting Unavailable Diane Smith Attending Unavailable Rajendra Nielsen Consulting UnavailJori Rodríguez Attending Unavailable Jori Garcia Admitting Unavailable Allergies Allergy Classification Reported Allergen(s) Allergy Type Date of Onset Reaction(s) Facility Latex (2 sources) Latex Substance Allergy 0 Rash [facility] (20 sources) Latex; Translations: [Latex] Allergy to substance 0 Eruption of skin (disorder), Rash [facility] Medications Current Medications Medication Drug [...] above: Take 2 tablets by mo [facility] every 6 hours as needed for pain. acetaminophen 325 mg / HYDROcodone bitartrate 7.5 mg oral tablet (20 sources) Opioid Agonist Start: 05-25-2025 take 1 tablet by mouth three times daily as needed for pain HYDROcodone-acetami nophen (NORCO) 7.5-325 mg per tablet Indications: Reflex sympathetic dystrophy of right upper extremity Take 1 tablet by mouth 3 (three) times a day as needed for pain. 90 tablet 05/25/2025 Active Start: 04-25-2025 End: 05-19-2025 take 1 tablet by mouth three times daily as needed for pain HYDROcodone-acetaminophen (NORCO) 7.5-32 5 mg per tablet Indications: Reflex sympathetic dystrophy of right upper extremity Take 1 tablet by mouth 3 (three) times a day as needed for pain. 90 tablet 04/25/2025 05/19/2025 Discontinued (Reorder) Start: 04-25-2025 take 1 tablet by rain three times daily as needed for pain HYDROcodone-acetaminophen (NORCO) 7.5-32 5 mg per tablet Indications: Reflex sympathetic dystrophy of right upper extremity Take 1 tablet by mouth 3 (three) times a day as needed for pain. 90 tablet 04/25/2025 Active Start: 03-26-2025 take 1 tablet by rain three times daily as needed for pain HYDROcodone-acetaminophen (NORCO) 7.5-32 5 mg per tablet Indications: Reflex sympathetic dystrophy of right upper extremity Take 1 tablet by mouth 3 (three) times a day as needed for pain. 90 tablet 03/26/2025 Active Start: 03-26-2025 take 1 tablet by rain th three times daily as needed for pain HYDROcodone-acetaminophen (NORCO) 7.5-32 5 mg per tablet Indications: Reflex sympathetic dystrophy of right upper extremity Take 1 tablet by mouth 3 (three) times a day as needed for pain. 90 tablet 03/26/2025 Active Start: 02-24-2025 End: 04-18-2025 take 1 tablet by mouth three times daily as needed for pain HYDROcodone-acetaminophen (NORCO) 7.5-32 5 mg per tablet Indications: Reflex sympathetic dystrophy of right upper extremity Take 1 tablet by mouth 3 (three) times a day as needed for pain. 90 tablet 02/24/2025 04/18/2025 Discontinued (Reorder) Start: 02-24-2025 take 1 tablet by rain [...] tablet by rain th every eight hours Start: 08-25-2024 End: 09-13-2024 take 1 tablet [...] for wheezing/shortness of breath. AMBULATORY COMPOUNDED MEDICATION (18 sources) Start: 08-22-19 AMBULATORY COMPOUNDED MEDICATION Apply 120 g topically See Admin Instructions. Formula 8E Apply 1-2 grams topically to affected area three to four times daily 120 g 2 08/22/2018 Active amoxicillin 500 mg oral capsule (18 sources) Penicillin-class Antibacterial Start: 01-28-20 End: 02-04-20 [...] mg / clavulanate 125 mg oral tablet (12 sources) Penicillin-class Antibacterial Start: 11-26-2024 End: 12-04-2024 amoxicillin-clavulanate (Augmentin) 875-125 MG tablet 1 tablet 11/26/2024 12/04/2024 Discontinued (Therapy completed) Start: 11-26-2024 End: 03-17-2025 take 1 tablet by mouth twice daily Amoxicillin-Pot Clavulanate 875-125 mg tablet Discontinued 1 TAB PO Twice daily 10 5 November 26, 2024 12:00am March 17, 2025 2:08pm atorvastatin 20 mg oral tablet (20 sources) HMG-CoA Reductase Inhibitor Start: 08-12-2024 End: 04-27-2025 take 1 tablet by mouth once daily Budesonide / formoterol (19 sources) Corticosteroid, beta2-Adrenergic Agonist budesonide-form oteroL (SYMBICORT) 80-4.5 mcg/actuation inhaler Active take 2 [...] tablet by mouth once daily as needed Start: 04-18-2024 End: 05-18-2024 take 1 tablet [...] once daily for 3 days. Continuous Glucose Therapy Assistant (Dexcom G7 Therapy Assistant) device (15 sources) Start: 09-11-2024 End: 12-04-2024 Continuous Glucose Therapy Assistant (Dexcom G7 Therapy Assistant) device Indications: Type 2 diabetes mellitus with diabetic neuropathy, with long-term current use of insulin (CMS/HCC) , Type 2 diabetes mellitus with hyperglycemia, with long-term current use of insulin (CMS/HCC) , 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 (CMS/HCC) 1 each Daily 1 each 09/11/2024 12/04/2024 Discontinued (Cost of medication) Start: 09-11-2024 End: 09-11-2025 Continuous Glucose Therapy Assistant (Dexcom G7 Therapy Assistant) device Indications: Type 2 diabetes mellitus with diabetic neuropathy, with long-term current use of insulin (CMS/HCC) , Type 2 diabetes mellitus with hyperglycemia, with long-term current use of insulin (CMS/HCC) , 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 (CMS/HCC) 1 each Daily 1 each 09/11/2024 09/11/2025 Active End: 09-11-2024 Continuous Glucose Therapy Assistant (Dexcom G7 Therapy Assistant) device 1 each Daily 09/11/2024 Discontinued (Reorder) Continuous Glucose Sensor (Dexcom G7 Sensor) misc (15 sources) Start: 09-11-2024 End: 12-04-2024 Continuous Glucose Sensor (Dexcom G7 Sensor) misc Indications: Type 2 diabetes mellitus with diabetic neuropathy, with long-term current use of insulin (CMS/HCC) , Type 2 diabetes mellitus with hyperglycemia, with long-term current use of insulin (CMS/HCC) , USP (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 (CMS/HCC) 1 each Daily 9 each 3 09/11/2024 12/04/2024 Discontinued (Cost of medication) Start: 09-11-2024 End: 12-10-2024 Continuous Glucose Sensor (D excom G7 Sensor) misc Indications: Type 2 diabetes mellitus with diabetic neuropathy, with long-term current use of insulin (CMS/HCC) , Type 2 diabetes mellitus with hyperglycemia, with long-term current use of insulin (CMS/HCC) , USP (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 (CMS/HCC) 1 each Daily 9 each 3 09/11/2024 12/10/2024 Active End: 09-11-2024 Continuous Glucose Sensor (D excom G7 Sensor) [facility] 1 each 1 (one) time each day [...] Comment on above: Take [address] [facility] two times a day. ergocalciferol 1.25 mg oral capsule (17 sources) Provitamin D2 Compound Start: 09-08-2024 End: 05-14-2025 take 1 capsule by mouth every week estradiol 0.1 mg/ml vaginal cream (7 sources) Estrogen Start: 05-03-2023 Estrace 0.1 mg/g Cream See Instructions, 42.5 gm, Refill(s) 3, apply pea size amount to urethra/inner vagina 3x/week x 1 month, then 2x/week for maintainence, [id number], 153, cm, 05/03/23 9:52:00 EDT, Height/Length Dosing, 59, kg, 05/03/23 9:52:00 EDT, Weight Dosing Start Date: 05/03/23 Status: Ordered fluticasone propionate 0.05 mg/actuat metered dose nasal spray (20 sources) Corticosteroid Start: 09-04-2024 Start: 06-24-2024 fluticasone pr opionate (FLONASE) 50 [...] 01/13/2024 Active lisinopril 10 mg oral tablet (18 sources) Angiotensin Converting Enzyme Inhibitor take 1 tablet by mouth in the morning lisinopriL (PRINIVIL,ZESTRIL) 10 mg tablet Take 1 tablet (10 mg total) by mouth in the morning. Active metFORMIN hydrochloride 1000 mg oral tablet (18 sources) Biguanide take 1 tablet by mouth [...] day(s), # 30 tab(s), Refills(s) 6, Pharmacy: [id number], 153, cm, 09/21/22 8:48:00 EST, Height/Length Dosing, 52.5, kg, 09/21/22 8:48:00 EST, Weight Dosing Start Date: 09/21/22 Stop Date: 04/19/23 Status: Ordered nitroglycerin 0.4 mg sublingual tablet (20 sources) Nitrate Vasodilator Start: 08-26-2024 24 hr oxybutynin chloride 5 mg extended release oral tablet (1 source) Cholinergic Muscarinic Antagonist Start: 09-13-2022 End: 04-11-2023 take 1 tablet by mouth once daily oxybutynin 5 mg ER Tab 5 mg = 1 tab(s), Oral, Daily, X 30 day(s), # 30 tab(s), Refills(s) 6, Pharmacy: [id number], 153, cm, 09/13/22 13:38:00 EST, Height/Length Dosing, 52.5, kg, 09/13/22 13:38:00 EST, Weight Dosing Start Date: 09/13/22 Stop Date: 04/11/23 Status: Ordered potassium chloride 10 meq extended release oral capsule (12 sources) Start: 09-08-2022 potassium chloride 10 mEq Cap-ER Refills(s) 0 Start Date: 09/08/22 Status: Ordered pregabalin 150 mg oral capsule (20 sources) Start: 05-25-2025 pregabalin (LYRICA) 150 mg capsule Indications: Complex regional pain syndrome type 1 of right upper extremity Take 1 capsule (150 mg total) by mouth in the morning and 1 capsule (150 mg total) at noon and 1 capsule (150 mg total) in the evening. 90 capsule 1 05/25/2025 Active Start: 03-26-2025 End: 05-19-2025 take 1 capsule by mouth once daily Start: 03-26-2025 pregabalin (LY PRIYANK) 150 mg capsule Indications: [...] capsule 1 10/18/2024 Active Start: 08-11-2023 End: 05-14-2025 take 1 capsule by mouth every eight hours Pregabalin 150 mg capsule Discontinued 150 MG PO Every 8 hours September 04, 2024 12:19pm May 14, 2025 11:28am Start: 09-08-2022 End: 10-04-2023 pregabalin (Lyrica) 150 [...] three times daily. Take [address] [facility] two times a day for 30 days. 1000 ml sodium chloride 9 mg/ml injection (1 source) Start: End: 0.9 % sodium chloride (NACL 0.9%) infusion Indications: Other hydronephrosis Administer at rate defined per CT contrast administration specifications. To be provided with radiology test. 150 mL 0 01/12/2024 01/12/2024 Active 5 ml sodium ferric gluconate complex 12.5 mg/ml injection (4 sources) Start: 5 trospium chloride 20 mg oral tablet (20 sources) Cholinergic Muscarinic Antagonist Start: 3 End: 5 take 1 tablet by mouth in the morning trospium (Sanctura) 20 MG tablet Take 20 mg by mouth in the morning. 03/22/2023 11/18/2024 Discontinued (Therapy completed) vitamin b12 1 mg oral capsule (20 sources) Vitamin B12 Start: 5 take 1 capsule by mouth once daily Start: 06-14-2023 End: 06-11-2024 take 1 tablet [...] take 1 tablet by mouth once daily Start: 10-24-2024 End: 01-22-2025 take 1 tablet [...] by mouth once daily. 09/08/2022 Active calcitriol 0.19646 mg oral capsule (20 sources) Vitamin D3 Analog Start: 06-05-2024 End: 11-23-2024 take 1 capsule by mouth three times weekly Calcitriol 0.25 mcg capsule Discontinued 0.25 MCG PO 3 Times a week June 05, 2024 12:00am November 23, 2024 8:45pm Continuous Blood Gluc Therapy Assistant (Dexcom G6 bulk receiver) device (3 sources) Start: 12-30-2022 End: 04-16-2024 Continuous Blood Gluc Therapy Assistant (Dexcom G6 bulk receiver) device Inject 1 Device under the skin in the morning. 12/30/2022 04/16/2024 Discontinued (Therapy completed) Start: 12-30-2022 Continuous Blo od Gluc Therapy Assistant (Dexcom G6 bulk receiver) device Inject 1 Device under the skin [...] diabetes mellitus with diabetic neuropathy, unspecified whether oil heaterman insulin use ([facility]) Take 1 capsule (20 mg) by mouth Daily Do not crush or chew. 30 capsule 1 06/11/2024 08/27/2024 Discontinued (Therapy completed) ferrous sulfate 325 mg oral tablet (20 sources) Start: 06-05-2024 take 1 tablet by mouth at mealtime ferrous sulfate 325 (65 Fe) MG EC tablet Take 325 mg by mouth in the morning. Take with meals. 06/05/2024 Active Start: 04-16-2021 End: 05-14-2025 take 1 tablet by mouth once daily Ferrous Sulfate 325 mg (65 mg iron) tablet Discontinued 325 MG PO Daily June 05, 2024 12:00am May 14, 2025 11:23am Start: 04-16-2021 End: 05-26-2025 take 1 tablet by mouth twice daily Ferrous Sulfate 325 mg (65 mg iron) tablet Discontinued 325 MG PO Twice daily May 14, 2025 11:15am May 26, 2025 12:29pm Start: 04-16-2021 take 1 tablet by rain th three times daily at mealtime FEROSUL 325 mg (65 mg iron) tablet Take 1 tablet by mouth three times daily with meals. 04/16/2021 Active Comment on above: Take 1 tablet by rain th three times daily with meals. furosemide 40 mg oral tablet (20 sources) Loop Diuretic Start: 03-17-2025 End: 05-26-2025 take 1 tablet by mouth once daily Furosemide (Lasix) 40 mg tablet Discontinued 40 MG PO Daily March 17, 2025 12:00am May 26, 2025 12:29pm Start: 09-08-2024 End: 03-17-2025 take 1 tablet by mouth twice daily Furosemide 40 mg Tablet Discontinued 40 MG PO BID@0800,1600 60 30 September 08, 2024 1:00am March 17, 2025 2:08pm 24 hr metoprolol succinate 50 mg extended release oral tablet (20 sources) beta-Adrenergic Rainer Start: 06-24-2024 End: 04-27-2025 take 1 tablet by mouth once daily Start: 11-08-2023 End: 01-20-2024 take 1 tablet [...] completed) sodium bicarbonate 650 mg oral tablet (11 sources) Start: 09-08-2024 End: 11-23-2024 take 1 tablet by mouth three times daily Sodium Bicarbonate 650 mg Tablet Discontinued 650 MG PO Three times daily 90 September 08, 2024 1:00am November 23, 2024 8:47pm sodium zirconium cyclosilicate 28167 mg powder for oral suspension (6 sources) Start: 03-26-2025 End: 05-26-2025 Sodium Zirconium Cyclosilicate (Lokelma) 10 gram powder in packet Discontinued 10 GM PO Daily March 26, 2025 12:00am May 26, 2025 12:29pm Problems Active Problems Problem Classification Problem Date Documented Date Episodic/Chronic Administrative/socia l admission (2 sources) Dietary counseling [...] Translations: [Anemia in chronic kidney disease] Onset: 06-02-20 Chronic Deficiency and other anemia (20 sources) Iron deficiency anemia; Translations: [Iron deficiency anemia, unspecified] Onset: 11-16-1909-08-2022 Episodic Deficiency and other anemia (1 source) Anemia, unspecified Episodic Deficiency and other anemia (10 sources) Iron deficiency anemia, unspecified; Translations: [Iron deficiency anemia, unspecified] Onset: 06-02-2009-04-2024 Episodic Diabetes mellitus with complications (20 sources) [...] sources) Mixed incontinence; Translations: [Incontinence] Onset: 09-13-19 23 Resolved : 12-21-19 Chronic Headache; including migraine (20 sources) Migraine; Translations: [...] Translations: [Weakness] Onset: 01-18-20 21 01-18-2021 Episodic Nutritional deficiencies (20 sources) Deficiency of [...] [Laceration of foot with foreign body] Onset: 05-16-2011-27-2024 Episodic Osteoporosis (20 sources) Age-related osteoporosis without current pathological fracture; Translations: [Osteoporosis] Onset: 01-01-20 23 10-11-2023 Chronic Other circulatory disease (1 source) Other disorders of arteries, 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; Translations: [OTH D/O ART ARTRIOL CAP DZ CLSS ELS] Onset: 09-13-19 Chronic Other connective tissue disease (20 sources) Recurrent falls ; Translations: [Repeated falls] Onset: 01-18-20 21 01-18-2021 Episodic Other connective tissue disease (5 sources) Pain in left foot; Translations: [PAIN IN LEFT FOOT] Onset: 06-15-20 Episodic Other connective tissue disease (19 sources) Pain in right foot; Translations: [Pain in right foot] Onset: 11-12-19 25 11-11-2024 Episodic Other connective tissue disease (1 source) Repeated falls; Translations: [Repeated falls] Onset: 05-20-20 Episodic Other diseases of bladder and urethra (9 sources) Neuromuscular dysfunction of bladder, unspecified; Translations: [Neurogenic bladder NOS] Onset: 07-25-20 22 09-04-2024 Chronic Other diseases of bladder and urethra (20 sources) Bladder outlet obstruction; Translations: [Bladder-neck obstruction] Onset: 01-30-20 21 01-29-2021 Chronic Other diseases of bladder and [...] Chronic Other diseases of bladder and urethra (11 sources) Overactive bladder; Translations: [Overactive bladder] 11-23-2024 Chronic Other diseases of bladder and urethra (2 sources) Overactive bladder; Translations: [Hypertonicity of bladder] 11-23-2024 Chronic Other diseases of bladder and urethra (10 sources) Acquired obstructive nephropathy due to neurogenic bladder; Translations: [Neuromuscular dysfunction of bladder, unspecified] 05-20-2025 Chronic Other diseases of kidney and ureters [...] kidney and ureters (13 sources) Cyst of kidney, acquired; Translations: [Cystic kidney disease, unspecified] Onset: 09-15-19 Episodic Other diseases of kidney and ureters (5 sources) Acquired renal cystic disease; Translations: [Cyst of kidney, acquired] 07-05-2023 Episodic Comment on above: resected 2023 Other diseases of kidney and ureters (3 sources) Hydronephrosis; Translations: [Other hydronephrosis] 01-12-2024 Episodic Other diseases of kidney and ureters (20 sources) Hydroureteronephrosis ; Translations: [Unspecified hydronephrosis] Onset: 12-05-1911-23-2024 Episodic Other diseases of kidney and ureters (1 source) Other obstructive and reflux uropathy; Translations: [Other obstructive and reflux uropathy] Onset: 05-20-20 Episodic Other endocrine disorders (20 sources) Hyperparathyroidism; Translations: [Hyperparathyroidism, unspecified] Onset: 03-13-2006-03-2024 Chronic Other endocrine disorders (7 sources) Hyperparathyroidism, unspecified; Translations: [Hyperparathyroidism, unspecified] Onset: 06-02-20 25 06-05-2024 Chronic Other liver diseases (20 sources) Steatosis of liver; Translations: [Fatty (change of) liver, not elsewhere classified] Onset: 10-11-19 24 10-11-2023 Chronic Other lower respiratory disease (1 source) Nodule of lung; Translations: [Solitary pulmonary nodule] 03-27-2024 Episodic Other nervous system disorders (20 sources) Chronic pain due to injury; Translations: [Chronic pain due to trauma] Onset: 06-06-2006-06-2023 Chronic Other nervous system disorders (2 sources) [...] Chronic Other nutritional; endocrine; and metabolic disorders (20 sources) Hypomagnesemia; Translations: [Hypomagnesemia] Onset: 12-05-19 25 09-04-2024 Chronic Other nutritional; endocrine; and metabolic disorders (6 sources) Hypomagnesemia; Translations: [Disorders of magnesium metabolism] Onset: 06-02-20 25 09-04-2024 Chronic Other nutritional; endocrine; and [...] Chronic Poisoning by other medications and drugs (15 sources) Poisoning by vitamin D; Translations: [Poisoning by vitamins, accidental (unintentional), initial encounter] Onset: 06-02-2009-04-2024 Episodic Residual codes; unclassified (1 source) Asymptomatic [...] impairment; Translations: [Other amnesia] Onset: 12-05-1912-04-2024 Episodic Residual codes; unclassified (10 sources) Finding related to ability to manage personal health care; Translations: [Other specified health status] 05-20-2025 Episodic Residual codes; unclassified (1 source) Other specified health status; Translations: [Other specified health status] Onset: 05-20-20 Episodic Rheumatoid arthritis and related disease (20 sources) Rheumatoid arthritis, unspecified; Translations: [Rheumatoid arthritis] Onset: 06-15-2003-13-2024 Chronic Unclassified (12 sources) Finding of sensation of bladder 09-13-2022 Unclassified (1 source) CHRN KIDNEY DISEASE STG 3 UNSP; Translations: [CHRN KIDNEY DISEASE STG 3 UNSP] Onset: 01-01-20 23 Unclassified (1 source) CONTACT W/AND (SUSP) EXPOS COVID-19; Translations: [CONTACT W/AND (SUSP) EXPOS COVID-19] Onset: 07-25-20 22 Unclassified (2 sources) A [facility] screening has identified you as FRAIL [...] Four Ways to Beat the Frailty Risk [email or web address] 11-26-2024 Unclassified (2 sources) Please follow-up with [facility] for neurogenic bladder and recurrent urine retention Unclassified (4 sources) Hospital follow up appointment. Please call and reschedule if needed. Unclassified (1 source) Follow up appointment at [place] location: [address] [place] [address] Hospital follow up appointment. Please call and reschedule if needed. Unclassified (1 source) Follow up appointment at [place] location: Unclassified (1 source) Reflex sympathetic dystrophy of right upper extremity [G90.511] Onset: 02-29-20 25 Unclassified (1 source) Extremity Pain Onset: 10-09-19 25 Unclassified (1 source) Arm Injury Onset: 07-03-20 24 Unclassified (1 source) E11.9 - Type 2 diabetes mellitus without complications Unclassified (4 sources) They are currently accepting new patients. Please call to establish care and scheduled follow up appointment with PCP. Unclassified (4 sources) You will have ultrasound of bilateral upper extremities in our office and see Dr. Kirk to discuss options for hemodialysis access creation. 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] Onset: 11-16-1911-16-2023 Chronic Past or Other Problems Problem Classification [...] Onset: 07-25-2022 Episodic Deficiency and other anemia (1 source) [...] and reflux uropathy, unspecified] Onset: 01-17-2021 Resolved: 01-27-2025 01-21-2021 Episodic Mood disorders (20 sources) Mood disorders Onset: 10-11-2023 Resolved: 11-18-2024 10-11-2023 Nausea and vomiting (20 sources) Nausea and vomiting; Translations: [Nausea with vomiting, unspecified] Onset: 05-08-2024 05-08-2024 Episodic Neoplasms of unspecified nature or uncertain behavior (20 sources) Neoplasm of kidney; 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] Onset: 06-22-2023 06-22-2023 Episodic Nonspecific chest pain (20 sources) Chest pain, unspecified; Translations: [Chest pain] Onset: 12-15-2022 Episodic Other aftercare (20 sources) Long-term current use of insulin; Translations: [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] Onset: 08-27-2024 08-27-2024 Episodic Other aftercare (5 sources) 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; Translations: [USP CURRENT USE OF INSULIN] Onset: 08-09-2022 Episodic Other aftercare (1 source) Other oil heaterman (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; Translations: [OTH USP CURRENT DRUG THERAPY] Onset: 08-09-2022 Episodic Other aftercare (2 sources) vermin exterminator (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 of opiate analgesic; Translations: [vermin exterminator (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 of opiate analgesic] Onset: 03-15-2022 Episodic Other aftercare (18 sources) Patient encounter status; Translations: [vermin exterminator (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 of opiate analgesic] Onset: 03-15-2022 [...] Translations: [Other hydronephrosis] Onset: 01-12-2024 Episodic Other diseases of kidney and ureters (3 sources) Unspecified hydronephrosis; Translations: [Hydronephrosis] Onset: 11-23-2024 11-23-2024 Episodic Other gastrointestinal disorders (1 source) Diarrhea, [...] 01-21-2021 Episodic Skin and subcutaneous tissue infections (20 sources) Cellulitis of left lower limb; Translations: [Cellulitis of left toe] Onset: 07-25-2022 11-24-2024 Episodic Superficial injury; contusion (12 sources) Foreign body of foot; Translations: [Superficial foreign body, right foot, initial encounter] Onset: 11-23-2024 11-24-2024 Episodic Results Test Name Value Interpretation Reference Range Facility Albumin [Mass/volume] in Ser um or Plasma by Bromocresol green (BCG) dye binding methoOrdered By: Eli Sprague on 06-02-2025 Albumin BCG dye [Mass/Vol] 3.8 g/dL 3.5-5.7 [facility] Bacteria [Presence] in Urine by AutomatedOrdered By: Eli Sprague on 06-02-2025 Bacteria Auto Ql (U) None seen [HPF] None Seen [facility] Bilirubin Test strip Ql (U)O rdered By: Eli Sprague on 06-02-2025 Bilirubin Ql (U) Negative Negative [facility] Creatinine [Mass/volume] in UrineOrdered By: Eli Sprague on 06-02-2025 Creatinine (U) [Mass/Vol] 35.00 mg/dL [facility] Comment on above: No reference range e stablished Dipstick and MicroscopicOrde red By: Eli Sprague on 06-02-2025 Appearance (U) Clear Normal Clear [facility] Comment on above: Order Comment: Name Collection Type:: Clean-Voided Midstream Performed By: #### H BSAB, HBCAB, HEPACUTE #### [facility] , Color (U) Colorless Normal Yellow [facility] Comment on above: Order Comment: Name Collection Type:: Clean-Voided Midstream Performed By: #### H BSAB, HBCAB, HEPACUTE #### [facility] , Ketones Ql (U) Negative Normal Negative [facility] Comment on above: Order Comment: Name Collection Type:: Clean-Voided Midstream Performed By: #### H BSAB, HBCAB, HEPACUTE #### [facility] , Leukocyte esterase Test strip Ql (U) 1+ Normal Negative [facility] Comment on above: Order Comment: Name Collection Type:: Clean-Voided Midstream Performed By: #### H BSAB, HBCAB, HEPACUTE #### [facility] , pH (U) 6.5 [pH] Normal 5.0-9.0 [facility] Comment on above: Order Comment: Name Collection Type:: Clean-Voided Midstream Performed By: #### H BSAB, HBCAB, HEPACUTE #### [facility] , Protein (U) [Mass/Vol] 100 mg/dL Normal Negative [facility] Comment on above: Order Comment: Name Collection Type:: Clean-Voided Midstream Performed By: #### H BSAB, HBCAB, HEPACUTE #### [facility] , Dipstick and Microscopicon 1 Bacteria,Urine None Seen Normal None Seen [facility] Comment on above: Order Comment: Name Collection Type:: Clean-Voided Midstream Performed By: #### H BSAB, HBCAB, HEPACUTE #### [facility] , Bilirubin,Urine Negative Normal Negative [facility] Comment on above: Order Comment: Name Collection Type:: Clean-Voided Midstream Performed By: #### H BSAB, HBCAB, HEPACUTE #### [facility] , Glucose Ql (U) 500 mg/dL Normal Normal [facility] Comment on above: Order Comment: Name Collection Type:: Clean-Voided Midstream Performed By: #### H BSAB, HBCAB, HEPACUTE #### [facility] , Hyaline Casts,Urine None Normal 0-8 [facility] Comment on above: Order Comment: Name Collection Type:: Clean-Voided Midstream Result Comment: PERF ORMED BY: [place] [address] PATHOLOGIST POWER TONG OPERATOR ARABELLA ALEXANDER M.D. Performed By: #### H BSAB, HBCAB, HEPACUTE #### [facility] , Nitrite,Urine Negative Normal Negative [facility] Comment on above: Order Comment: Name Collection Type:: Clean-Voided Midstream Performed By: #### H BSAB, HBCAB, HEPACUTE #### [facility] , Occult Blood,Urine Negative Normal Negative [facility] Comment on above: Order Comment: Name Collection Type:: Clean-Voided Midstream Result Comment: PERF ORMED BY: [facility] [address] [place] [address] PATHOLOGIST POWER TONG OPERATOR ARABELLA ALEXANDER M.D. Performed By: #### H BSAB, HBCAB, HEPACUTE #### [facility] , RBC,Urine 1-2 Normal 0-4 [facility] Comment on above: Order Comment: Name Collection Type:: Clean-Voided Midstream Performed By: #### H BSAB, HBCAB, HEPACUTE #### [facility] , Specificy [place],Urine 1.008 Normal 1.001-1.030 [facility] Comment on above: Order Comment: Name Collection Type:: Clean-Voided Midstream Performed By: #### H BSAB, HBCAB, HEPACUTE #### [facility] , Squamous Epithelial Cell,Urine 1-2 Normal 0-2 [facility] Comment on above: Order Comment: Name Collection Type:: Clean-Voided Midstream Performed By: #### H BSAB, HBCAB, HEPACUTE #### [facility] , Urobilinogen,Urine Normal Normal Normal [facility] Comment on above: Order Comment: Name Collection Type:: Clean-Voided Midstream Performed By: #### H BSAB, HBCAB, HEPACUTE #### [facility] , WBC,Urine 10-19 Normal 0-4 [facility] Comment on above: Order Comment: Name Collection Type:: Clean-Voided Midstream Performed By: #### H BSAB, HBCAB, HEPACUTE #### [facility] , Epithelial cells.squamous [# /area] in Urine sediment by Automated countOrdered By: Eli Sprague on 06-02-2025 Epithelial cells.squamous Auto (Urine sed) [#/Area] 1-2 [HPF] 0-2 [facility] Erythrocytes [#/area] in Uri ne sediment by Automated countOrdered By: Eli Sprague on 06-02-2025 RBC Auto (Urine sed) [#/Area] 1-2 [HPF] 0-4 [facility] FerritinOrdered By: Eli post on 06-02-2025 Ferritin [Mass/Vol] 1268.2 ng/mL High 11.0-306.8 [facility] Comment on above: Performed By: #### G LULS #### Point of Care testing , Folate [Mass/volume] in Seru m or PlasmaOrdered By: Eli Sprague on 06-02-2025 Folate [Mass/Vol] 6.8 ng/mL >5.9 [facility] Comment on above: Folate reference ran ge: >5.9 ng/mlThe WHO technical consultation on folate and vitamin [id number] has determined that folate concentrations lessthan 4 ng/ml are considered deficient. Glomerular filtration rate [ Volume Rate/Area] in Serum, Plasma or Blood by CreatinineOrdered By: Eli Sprague on 06-02-2025 Glomerular filtration rate [Volume Rate/Area] in Serum, Plasma or Blood by Creatinine 28.765 mL/Min [facility] Glucose [Mass/volume] in Uri ne by Test stripOrdered By: Eli Sprague on 06-02-2025 Glucose Test strip (U) [Mass/Vol] 500 mg/dL High Normal [facility] Hemoglobin Test strip Ql (U) Ordered By: Eli Sprague on 06-02-2025 Hemoglobin Ql (U) Negative Negative [facility] Hemogram CBC Without DiffOrd ered By: Eli Sprague on 06-02-2025 Erythrocyte distribution width (RBC) [Ratio] 15.0 % Normal 11.9-15.3 [facility] Comment on above: Performed By: #### H BSAB, HBCAB, HEPACUTE #### [facility] , Hematocrit (Bld) [Volume fraction] 32.1 % Low 34.0-46.4 [facility] Comment on above: Performed By: #### H BSAB, HBCAB, HEPACUTE #### [facility] , Hemoglobin (Bld) [Mass/Vol] 10.9 g/dL Low 11.8-15.4 [facility] Comment on above: Performed By: #### H BSAB, HBCAB, HEPACUTE #### [facility] , MCH (RBC) [Entitic mass] 27.0 pg Normal 24.7-34.3 [facility] Comment on above: Performed By: #### H BSAB, HBCAB, HEPACUTE #### [facility] , MCV (RBC) [Entitic vol] 79.8 fL Low 80-100 [facility] Comment on above: Performed By: #### H BSAB, HBCAB, HEPACUTE #### [facility] , Platelet mean volume (Bld) [Entitic vol] 8.6 fL Normal 6.3-10.7 [facility] Comment on above: Result Comment: PERF ORMED BY: [facility] [place] [address] PATHOLOGIST POWER TONG OPERATOR ARABELLA ALEXANDER M.D. Performed By: #### H BSAB, HBCAB, HEPACUTE #### [facility] , Platelets (Bld) [#/Vol] 245 10*3/uL Normal 150-450 [facility] Comment on above: Performed By: #### H BSAB, HBCAB, HEPACUTE #### [facility] , RBC (Bld) [#/Vol] 4.02 10*6/uL Normal 3.60-5.00 [facility] Comment on above: Performed By: #### H BSAB, HBCAB, HEPACUTE #### [facility] , Hemogram CBC Without Diffon 06-02-2025 Mean Corpuscular HGB Conc 33.8 g/dL Normal 32.0-35.0 [facility] Comment on above: Performed By: #### H BSAB, HBCAB, HEPACUTE #### [facility] , White Blood Count 7.3 [CFU]/mL Normal 3.8-11.6 [facility] Comment on above: Performed By: #### H BSAB, HBCAB, HEPACUTE #### [facility] , Hyaline casts [#/area] in Ur ine sediment by Automated countOrdered By: Eli Sprague on 06-02-2025 Hyaline casts Auto (Urine sed) [#/Area] None [LPF] 0-8 [facility] Iron and TIBC Profileon 05-21 % Iron Saturation 79.4 % High 20-50 [facility] Comment on above: Performed By: #### G LULS #### Point of Care testing , Total Iron Binding Capacity 287 ug/dL Normal 255-450 [facility] Comment on above: Performed By: #### G LULS #### Point of Care testing , Iron and TIBC ProfileOrdered By: Eli Sprague on 06-02-2025 Iron [Mass/Vol] 228 ug/dL High 50-212 [facility] Comment on above: Performed By: #### G LULS #### Point of Care testing , Transferrin [Mass/Vol] 205 mg/dL Normal 203-362 [facility] Comment on above: Performed By: #### G LULS #### Point of Care testing , Leukocytes [#/area] in Urine sediment by Automated countOrdered By: Eli Sprague on 06-02-2025 WBC Auto (Urine sed) [#/Area] 10-19 [HPF] High 0-4 [facility] Leukocytes [#/volume] correc madhavi for nucleated erythrocytes in Blood by Automated counOrdered By: Eli Sprague on 06-02-2025 WBC corrected for nucl RBC Auto (Bld) [#/Vol] 7.3 10*3/uL 3.8-11.6 [facility] MCHC Auto (RBC) [Mass/Vol]Or dered By: Eli Sprague on 06-02-2025 MCHC (RBC) [Mass/Vol] 33.8 g/dL 32.0-35.0 [facility] MagnesiumOrdered By: Eli taylor on 06-02-2025 Magnesium [Mass/Vol] 1.6 mg/dL Low 1.9-2.7 [facility] Comment on above: Performed By: #### H BSAB, HBCAB, HEPACUTE #### [facility] , Nitrite Test strip Ql (U)Ord ered By: Eli Sprague on 06-02-2025 Nitrite Ql (U) Negative Negative [facility] No Panel InformationOrdered By: Eli Sprague on 06-02-2025 Pharmacy Creatinine Clearance (Chem N/A [facility] Parathyrin.intact [Mass/volu me] in Serum or PlasmaOrdered By: Eli Sprague on 06-02-2025 Parathyrin.intact [Mass/Vol] 345.0 pg/mL High 12-88 [facility] Parathyroid Hormone Intacton 06-02-2025 Parathyroid Hormone Intact 345.0 pg/mL High [facility] Comment on above: Result Comment: PERF ORMED BY: [address] [place] [address] PATHOLOGIST POWER TONG OPERATOR ARABELLA ALEXANDER M.D. Performed By: #### H BSAB, HBCAB, HEPACUTE #### [facility] , Protein Creat Ratio Ur Karina mon 06-02-2025 Creatinine, Urine (Random) 35.00 mg/dL Normal [facility] Comment on above: Result Comment: No r eference range established Performed By: #### H BSAB, HBCAB, HEPACUTE #### [facility] , Urine Protein/Creatinine Ratio 5629 mg/g{Cre} High 0-200 [facility] Comment on above: Result Comment: PERF ORMED BY: [facility] [address] [place] [address] PATHOLOGIST POWER TONG OPERATOR ARABELLA ALEXANDER M.D. Performed By: #### H BSAB, HBCAB, HEPACUTE #### [facility] , Protein Creat Ratio Ur Randprema mOrdered By: Eli Sprague on 06-02-2025 Protein (U) [Mass/Vol] 197 mg/dL High 0-9 [facility] Comment on above: Performed By: #### H BSAB, HBCAB, HEPACUTE #### [facility] , Renal Function Panelon 06-02 Albumin [Mass/Vol] 3.8 g/dL Normal 3.5-5.[address] [facility] Comment on above: Performed By: #### H BSAB, HBCAB, HEPACUTE #### [facility] , GFR/1.73 sq M.predicted MDRD (S/P/Bld) [Vol rate/Area] 28.765 mL/min/{1.73_m2} Normal [facility] Comment on above: Performed By: #### H BSAB, HBCAB, HEPACUTE #### [facility] , Renal Function PanelOrdered By: Eli Sprague on 06-02-2025 Anion gap [Moles/Vol] 11.0 mmol/L Normal 6.0-15.0 [facility] Comment on above: Performed By: #### H BSAB, HBCAB, HEPACUTE #### [facility] , Calcium [Mass/Vol] 8.5 mg/dL Low 8.6-10.3 [facility] Comment on above: Performed By: #### H BSAB, HBCAB, HEPACUTE #### [facility] , Chloride [Moles/Vol] 93 mmol/L Low 98-107 [facility] Comment on above: Performed By: #### H BSAB, HBCAB, HEPACUTE #### [facility] , CO2 [Moles/Vol] 33.8 mmol/L High 21.0-31.0 [facility] Comment on above: Performed By: #### H BSAB, HBCAB, HEPACUTE #### [facility] , Creatinine [Mass/Vol] 1.89 mg/dL High 0.60-1.20 [facility] Comment on above: Performed By: #### H BSAB, HBCAB, HEPACUTE #### [facility] , Glucose [Mass/Vol] 345 mg/dL High 70-100 [facility] Comment on above: Result Comment: [place] om Glucose Reference Range is dependent on time and content of last meal. Glucose of more than 200 mg/dL in a nonstressed, ambulatory subject supports the diagnosis of Diabetes Mellitus. ADA recommended reference range Performed By: #### H BSAB, HBCAB, HEPACUTE #### [facility] , ADA recommended refe rence rangeRandom Glucose Reference Range is dependent on time and content of last meal. Glucose of more than 200 mg/dL in a nonstressed, ambulatory subject supports the diagnosis of Diabetes Mellitus. Phosphate [Mass/Vol] 2.5 mg/dL Normal 2.5-4.5 [facility] Comment on above: Performed By: #### H BSAB, HBCAB, HEPACUTE #### [facility] , Potassium [Moles/Vol] 3.8 mmol/L Normal 3.5-5.1 [facility] Comment on above: Performed By: #### H BSAB, HBCAB, HEPACUTE #### [facility] , Sodium [Moles/Vol] 134 mmol/L Low 136-145 [facility] Comment on above: Performed By: #### H BSAB, HBCAB, HEPACUTE #### [facility] , Urea nitrogen [Mass/Vol] 15 mg/dL Normal 7-25 [facility] Comment on above: Performed By: #### H BSAB, HBCAB, HEPACUTE #### [facility] , Serum or plasma iron binding capacity measurement (mass/volume)Ordered By: Eli Sprague on 06-02-2025 Iron binding capacity [Mass/Vol] 287 ug/dL 255-450 [facility] Serum or plasma iron saturat ion measurement (mass fraction)Ordered By: Eli Sprague on 06-02-2025 Iron saturation [Mass fraction] 79.4 % High 20-50 [facility] Specific gravity Test strip (U) [Rel density]Ordered By: Eli Sprague on 06-02-2025 Specific gravity (U) [Rel density] 1.008 1.001-1.030 [facility] Uric AcidOrdered By: Eli taylor on 06-02-2025 Urate [Mass/Vol] 3.3 mg/dL Normal 2.3-6.6 [facility] Comment on above: Performed By: #### G LULS #### Point of Care testing , Urine Cultureon 06-02-2025 Bacteria identified Cx Nom (U) 10,000 colonies/ml mixed bacterial skin contaminants 1 Day PERFORMED BY: [place] [address] [place] [address] PATHOLOGIST POWER TONG OPERATOR ARABELLA ALEXANDER M.D. Normal [facility] [facility] Comment on above: Performed By: #### G LULS #### Point of Care testing , Urine protein/creatinine rat ioOrdered By: Eli Sprague on 06-02-2025 Protein/Creatinine (U) [Ratio] 5629 mg/g{Cre} High 0-200 [facility] Urobilinogen Test strip (U) [Mass/Vol]Ordered By: Eli Sprague on 06-02-2025 Urobilinogen (U) [Mass/Vol] Normal mg/dL Normal [facility] Vit. B12/Folate ProfileOrder ed By: Eli Sprague on 06-02-2025 Cobalamin (Vitamin B12) [Mass/Vol] 281 pg/mL Normal 180-914 [facility] Comment on above: Performed By: #### G LULS #### Point of Care testing , Vit. B12/Folate Profileon Folate 6.8 ng/mL Normal >5.9 [facility] Comment on above: Result Comment: Tiana te reference range: >5.9 ng/ml The WHO technical consultation on folate and vitamin b12 deficiencies has determined that folate concentrations less than 4 ng/ml are considered deficient. Performed By: #### G LULS #### Point of Care testing , Vitamin D 25 Hydroxy Totalon 06-02-2025 Vitamin D 25 Hydroxy Total 11.1 ng/mL Low 30-100 [facility] Comment on above: Result Comment: MAR[place] MIN D STATUS 25(OH)VITAMIN D RANGE (ng/mL) Deficient <20 Insufficient 20 to <30 Sufficient 30 to 100 Reference: Ekta MF,Rosa NC, Abdulkadir DAO, et al. Evaluation,treatment, and prevention of vitamin D deficiency; an Endocrine Society clinical practice guideline. JCEM. 2010; 96(7):1911-30. PERFORMED BY: [facility] [place] [address] PATHOLOGIST POWER TONG OPERATOR ARABELLA ALEXANDER M.D. Performed By: #### G LULS #### Point of Care testing , Vitamin D+Metabolites [Mass/ volume] in Serum or PlasmaOrdered By: Eli Sprague on 06-02-2025 Vitamin D+Metabolites [Mass/Vol] 11.1 ng/mL Low 30-100 [facility] Comment on above: VITAMIN D STATUS 25( [place])VITAMIN D RANGE (ng/mL) Deficient <20 Insufficient 20 to <30Sufficient 30 to 100Reference: Ekta MF,Rosa NC, Abdulkadir DAO, et al. Evaluation,treatment, and prevention of vitamin D deficiency; an Endocrine Society clinical practice guideline. JCEM. 2010; 96(7):1911-30. Basic Metabolic Panelon 10-0 Anion gap [Moles/Vol] 10.4 mmol/L Normal 6.0-15.0 [facility] Comment on above: Performed By: #### D IFF CBC, BMP #### [facility] [address] Calcium [Mass/Vol] 8.8 mg/dL Normal 8.6-10.[address] [facility] Comment on above: Performed By: #### D IFF CBC, BMP #### [facility] [address] [place] [address] [place] Chloride [Moles/Vol] 99 mmol/L Normal 98-107 [facility] Comment on above: Performed By: #### D IFF CBC, BMP #### [facility] [address] [place] [id number] [facility] CO2 [Moles/Vol] 29.3 mmol/L Normal 21.0-31.0 [facility] Comment on above: Performed By: #### D IFF CBC, BMP #### [facility] [address] [place] [id number] [facility] Creatinine [Mass/Vol] 2.88 mg/dL High 0.60-1.20 [facility] Comment on above: Performed By: #### D IFF CBC, BMP #### [facility] [address] [place] [id number] [place] Creatinine Clr Calc Pharmacy 15.11 Normal [facility] Comment on above: Result Comment: PERF ORMED BY: [place] [address] PATHOLOGIST POWER TONG OPERATOR ARABELLA ALEXANDER M.D. Performed By: #### D IFF CBC, BMP #### [facility] [address] [place] [address] [place] GFR/1.73 sq M.predicted MDRD (S/P/Bld) [Vol rate/Area] 17.352 mL/min/{1.73_m2} Normal [facility] Comment on above: Performed By: #### D IFF CBC, BMP #### [facility] [address] Glucose [Mass/Vol] 85 mg/dL Abnormal 70-[address] [facility] Comment on above: Result Comment: [place] om Glucose Reference Range is dependent on time and content of last meal. Glucose of more than 200 mg/dL in a nonstressed, ambulatory subject supports the diagnosis of Diabetes Mellitus. ADA recommended reference range Performed By: #### D IFF CBC, BMP #### [facility] [address] [place] [address] [place] Potassium [Moles/Vol] 3.7 mmol/L Normal 3.5-5.1 [facility] Comment on above: Performed By: #### D IFF CBC, BMP #### [facility] [address] [place] [address] [place] Sodium [Moles/Vol] 135 mmol/L Low 136-[address] [facility] Comment on above: Performed By: #### D IFF CBC, BMP #### [facility] [address] [place] [address] [place] Urea nitrogen [Mass/Vol] 17 mg/dL Normal 7-25 [facility] Comment on above: Performed By: #### D IFF CBC, BMP #### [facility] [address] [place] [address] [place] Glucose Poct Glucometerson Glucose [Mass/Vol] 147 mg/dL Normal [facility] Comment on above: Result Comment: [place] om Glucose Reference Range is dependent on time and content of last meal. Glucose of more than 200 mg/dL in a nonstressed, ambulatory subject supports the diagnosis of Diabetes Mellitus. PERFORMED BY: [facility] [address] [place] [id number] PATHOLOGIST POWER TONG OPERATOR ARABELLA ALEXANDER M.D. Performed By: #### G LULS #### Point of Care testing , Commemt1 Glu2: Cleaned Meter Normal [facility] Comment on above: Result Comment: PERF ORMED BY: [facility] [address] [place] [address] PATHOLOGIST POWER TONG OPERATOR ARABELLA ALEXANDER M.D. Performed By: #### G LULS #### Point of Care testing , Glucose [Mass/Vol] 105 mg/dL Normal [facility] Comment on above: Result Comment: [facility] Glucose Reference Range is dependent on time and content of last meal. Glucose of more than 200 mg/dL in a nonstressed, ambulatory subject supports the diagnosis of Diabetes Mellitus. Performed By: #### G LULS #### Point of Care testing , Basic Metabolic Panelon 10-0 Anion gap [Moles/Vol] 8.5 mmol/L Normal 6.0-15.0 [facility] Comment on above: Performed By: #### G LULS #### Point of Care testing , Calcium [Mass/Vol] 8.7 mg/dL Normal 8.6-10.[address] [facility] Comment on above: Performed By: #### G LULS #### Point of Care testing , Chloride [Moles/Vol] 94 mmol/L Low 98-107 [facility] Comment on above: Performed By: #### G LULS #### Point of Care testing , CO2 [Moles/Vol] 31.2 mmol/L High 21.0-31.0 [facility] Comment on above: Performed By: #### G LULS #### Point of Care testing , Creatinine [Mass/Vol] 2.42 mg/dL High 0.60-1.20 [facility] Comment on above: Performed By: #### G LULS #### Point of Care testing , Creatinine Clr Calc Pharmacy 17.98 Normal [facility] Comment on above: Result Comment: PERF ORMED BY: [facility] [address] [place] [address] PATHOLOGIST POWER TONG OPERATOR ARABELLA ALEXANDER M.D. Performed By: #### G LUMALS #### Point of Care testing , GFR/1.73 sq M.predicted MDRD (S/P/Bld) [Vol rate/Area] 21.381 mL/min/{1.73_m2} Normal [facility] Comment on above: Performed By: #### G LULS #### Point of Care testing , Glucose [Mass/Vol] 229 mg/dL High 70-[address] [facility] Comment on above: Result Comment: [facility] Glucose Reference Range is dependent on time and content of last meal. Glucose of more than 200 mg/dL in a nonstressed, ambulatory subject supports the diagnosis of Diabetes Mellitus. ADA recommended reference range Performed By: #### G LULS #### Point of Care testing , Potassium [Moles/Vol] 3.7 mmol/L Normal 3.5-5.1 [facility] Comment on above: Performed By: #### G LULS #### Point of Care testing , Sodium [Moles/Vol] 130 mmol/L Low 136-[address] [facility] Comment on above: Performed By: #### G LULS #### Point of Care testing , Urea nitrogen [Mass/Vol] 11 mg/dL Normal 7-25 [facility] Comment on above: Performed By: #### G LULS #### Point of Care testing , Diff and CBCon 05-25-2025 Anisocytosis Ql (Bld) Moderate Normal [facility] Comment on above: Performed By: #### G LULS #### Point of Care testing , Band form neutrophils/100 WBC (Bld) 3 % Normal 0-5 [facility] Comment on above: Performed By: #### G LULS #### Point of Care testing , Basophils/100 WBC (Bld) 3 % High 0-2 [facility] Comment on above: Performed By: #### G LULS #### Point of Care testing , Eosinophils/100 WBC (Bld) 3 % Normal 1-3 [facility] Comment on above: Performed By: #### G LULS #### Point of Care testing , Erythrocyte distribution width (RBC) [Ratio] 14.1 % Normal 11.9-15.3 [facility] Comment on above: Performed By: #### G LULS #### Point of Care testing , Giant Platelet Tally 2 /100{WBC} Normal [facility] Comment on above: Performed By: #### G LULS #### Point of Care testing , Hematocrit (Bld) [Volume fraction] 32.2 % Low 34.0-46.4 [facility] Comment on above: Performed By: #### G LULS #### Point of Care testing , Hemoglobin (Bld) [Mass/Vol] 10.7 g/dL Low 11.8-15.4 [facility] Comment on above: Performed By: #### G LULS #### Point of Care testing , Large Platelets Slight Normal [facility] Comment on above: Result Comment: PERF ORMED BY: [address] [place] [address] PATHOLOGIST POWER TONG OPERATOR ARABELLA ALEXANDER M.D. Performed By: #### G LULS #### Point of Care testing , Lymphocytes/100 WBC (Bld) 22 % Normal 18-42 [facility] Comment on above: Performed By: #### G LULS #### Point of Care testing , MCH (RBC) [Entitic mass] 25.8 pg Normal 24.7-34.3 [facility] Comment on above: Performed By: #### G LULS #### Point of Care testing , MCV (RBC) [Entitic vol] 77.9 fL Low 80-100 [facility] Comment on above: Performed By: #### G LULS #### Point of Care testing , Mean Corpuscular HGB Conc 33.1 g/dL Normal 32.0-35.0 [facility] Comment on above: Performed By: #### G LULS #### Point of Care testing , Metamyelocytes 1 % High 0-0 [facility] Comment on above: Performed By: #### G LULS #### Point of Care testing , Microcytosis Moderate Normal [facility] Comment on above: Performed By: #### G LULS #### Point of Care testing , Monocytes/100 WBC (Bld) 6 % Normal 2-11 [facility] Comment on above: Performed By: #### G LULS #### Point of Care testing , Platelet Estimate Normal Normal Normal [facility] Comment on above: Performed By: #### G LULS #### Point of Care testing , Platelet mean volume (Bld) [Entitic vol] 8.2 fL Normal 6.3-10.7 [facility] Comment on above: Result Comment: PERF ORMED BY: [facility] [address] [place] [address] PATHOLOGIST POWER TONG OPERATOR ARABELLA ALEXANDER M.D. Performed By: #### G LULS #### Point of Care testing , Platelet Morphology Normal Normal Normal [facility] Comment on above: Performed By: #### G LULS #### Point of Care testing , Platelets (Bld) [#/Vol] 333 10*3/uL Normal 150-450 [facility] Comment on above: Performed By: #### G LULS #### Point of Care testing , RBC (Bld) [#/Vol] 4.14 10*6/uL Normal 3.60-5.00 [facility] Comment on above: Performed By: #### G LULS #### Point of Care testing , Segmented neutrophils/100 WBC (Bld) 62 % Normal 50-70 [facility] Comment on above: Performed By: #### G LULS #### Point of Care testing , WBC (Bld) [#/Vol] 7.8 10*3/uL Normal 3.8-11.[address] [facility] Comment on above: Performed By: #### G LULS #### Point of Care testing , White Blood Count 7.8 [CFU]/mL Normal 3.8-11.6 [facility] Comment on above: Performed By: #### G LULS #### Point of Care testing , Glucose Poct Glucometerson 1 Commemt1 Glu2: Cleaned Meter Normal [facility] Comment on above: Result Comment: PERF ORMED BY: [place] [address] PATHOLOGIST POWER TONG OPERATOR ARABELLA ALEXANDER M.D. Performed By: #### D IFF CBC, BMP #### [place] [address] [place] Glucose [Mass/Vol] 155 mg/dL Normal [facility] Comment on above: Result Comment: [place] [facility] Glucose Reference Range is dependent on time and content of last meal. Glucose of more than 200 mg/dL in a nonstressed, ambulatory subject supports the diagnosis of Diabetes Mellitus. Performed By: #### D IFF CBC, BMP #### [address] Commemt1 Glu2: Cleaned Meter Normal [facility] Comment on above: Result Comment: PERF ORMED BY: [place] [address] PATHOLOGIST POWER TONG OPERATOR ARABELLA ALEXANDER M.D. Performed By: #### D IFF CBC, BMP #### [address] Glucose [Mass/Vol] 324 mg/dL Normal [facility] Comment on above: Result Comment: [place] Glucose Reference Range is dependent on time and content of last meal. Glucose of more than 200 mg/dL in a nonstressed, ambulatory subject supports the diagnosis of Diabetes Mellitus. Performed By: #### D IFF CBC, BMP #### [address] Commemt1 Glu2: Cleaned Meter Normal [facility] Comment on above: Result Comment: PERF ORMED BY: [place] [address] PATHOLOGIST POWER TONG OPERATOR ARABELLA ALEXANDER M.D. Performed By: #### G LULS #### Point of Care testing , Glucose [Mass/Vol] 135 mg/dL Normal [facility] Comment on above: Result Comment: [place] Glucose Reference Range is dependent on time and content of last meal. Glucose of more than 200 mg/dL in a nonstressed, ambulatory subject supports the diagnosis of Diabetes Mellitus. Performed By: #### G LULS #### Point of Care testing , Glucose [Mass/Vol] 166 mg/dL Normal [facility] Comment on above: Result Comment: [place] Glucose Reference Range is dependent on time and content of last meal. Glucose of more than 200 mg/dL in a nonstressed, ambulatory subject supports the diagnosis of Diabetes Mellitus. PERFORMED BY: [place] [address] PATHOLOGIST POWER TONG OPERATOR ARABELLA ALEXANDER M.D. Performed By: #### G LULS #### Point of Care testing , Basic Metabolic Panelon 10-0 Anion gap [Moles/Vol] 11.4 mmol/L Normal 6.0-15.0 [facility] Comment on above: Performed By: #### D IFF CBC, BMP #### [address] Calcium [Mass/Vol] 8.7 mg/dL Normal 8.6-10.[address] [facility] Comment on above: Performed By: #### D IFF CBC, BMP #### [address] Performed By: #### G LULS #### Point of Care testing , Chloride [Moles/Vol] 93 mmol/L Low 98-107 [facility] Comment on above: Performed By: #### D IFF CBC, BMP #### [address] Performed By: #### G LULS #### Point of Care testing , CO2 [Moles/Vol] 29.4 mmol/L Normal 21.0-31.0 [facility] Comment on above: Performed By: #### D IFF CBC, BMP #### [address] Creatinine [Mass/Vol] 2.42 mg/dL High 0.60-1.20 [facility] Comment on above: Performed By: #### D IFF CBC, BMP #### [address] Creatinine Clr Calc Pharmacy 18.07 Normal [facility] Comment on above: Result Comment: PERF ORMED BY: [place] [address] PATHOLOGIST POWER TONG OPERATOR ARABELLA ALEXANDER M.D. Performed By: #### D IFF CBC, BMP #### [address] GFR/1.73 sq M.predicted MDRD (S/P/Bld) [Vol rate/Area] 21.381 mL/min/{1.73_m2} Normal [facility] Comment on above: Performed By: #### D IFF CBC, BMP #### [address] Glucose [Mass/Vol] 107 mg/dL High 70-[address] [facility] Comment on above: Result Comment: [place] Glucose Reference Range is dependent on time and content of last meal. Glucose of more than 200 mg/dL in a nonstressed, ambulatory subject supports the diagnosis of Diabetes Mellitus. ADA recommended reference range Performed By: #### D IFF CBC, BMP #### [address] Performed By: #### G LULS #### Point of Care testing , Potassium [Moles/Vol] 3.8 mmol/L Normal 3.5-5.1 [facility] Comment on above: Performed By: #### D IFF CBC, BMP #### [address] Performed By: #### G LULS #### Point of Care testing , Sodium [Moles/Vol] 130 mmol/L Low 136-[address] [facility] Comment on above: Performed By: #### D IFF CBC, BMP #### [address] Performed By: #### G LULS #### Point of Care testing , Urea nitrogen [Mass/Vol] 17 mg/dL Normal 7-25 [facility] Comment on above: Performed By: #### D IFF CBC, BMP #### [address] Performed By: #### G DIANE #### Point of Care testing , Diff and CBCon 05-24-2025 Anisocytosis Ql (Bld) Moderate Normal [facility] Comment on above: Performed By: #### D IFF CBC, BMP #### [address] Band form neutrophils/100 WBC (Bld) 10 % High 0-5 [facility] Comment on above: Performed By: #### D IFF CBC, BMP #### [address] Eosinophils/100 WBC (Bld) 3 % Normal 1-3 [facility] Comment on above: Performed By: #### D IFF CBC, BMP #### [address] Erythrocyte distribution width (RBC) [Ratio] 14.0 % Normal 11.9-15.3 [facility] Comment on above: Performed By: #### D IFF CBC, BMP #### [address] Hematocrit (Bld) [Volume fraction] 33.3 % Low 34.0-46.4 [facility] Comment on above: Performed By: #### D IFF CBC, BMP #### [address] Hemoglobin (Bld) [Mass/Vol] 11.2 g/dL Low 11.8-15.4 [facility] Comment on above: Performed By: #### D IFF CBC, BMP #### [address] Lymphocytes/100 WBC (Bld) 14 % Low 18-42 [facility] Comment on above: Performed By: #### D IFF CBC, BMP #### [facility] [address] MCH (RBC) [Entitic mass] 26.1 pg Normal 24.7-34.3 [facility] Comment on above: Performed By: #### D IFF CBC, BMP #### [address] MCV (RBC) [Entitic vol] 77.8 fL Low 80-100 [facility] Comment on above: Performed By: #### D IFF CBC, BMP #### [address] Mean Corpuscular HGB Conc 33.5 g/dL Normal 32.0-35.0 [facility] Comment on above: Performed By: #### D IFF CBC, BMP #### [address] Metamyelocytes 3 % High 0-0 [facility] Comment on above: Performed By: #### D IFF CBC, BMP #### [address] Microcytosis Moderate Normal [facility] Comment on above: Performed By: #### D IFF CBC, BMP #### [address] Monocytes/100 WBC (Bld) 7 % Normal 2-11 [facility] Comment on above: Performed By: #### D IFF CBC, BMP #### [address] Myelocytes 2 % High 0-0 [facility] Comment on above: Performed By: #### D IFF CBC, BMP #### [address] Platelet Estimate Normal Normal Normal [facility] Comment on above: Performed By: #### D IFF CBC, BMP #### [address] Platelet mean volume (Bld) [Entitic vol] 8.5 fL Normal 6.3-10.7 [facility] Comment on above: Performed By: #### D IFF CBC, BMP #### [address] Platelet Morphology Normal Normal Normal [facility] Comment on above: Result Comment: PERF ORMED BY: [place] [address] PATHOLOGIST POWER TONG OPERATOR ARABELLA ALEXANDER M.D. Performed By: #### D IFF CBC, BMP #### [address] Platelets (Bld) [#/Vol] 318 10*3/uL Normal 150-450 [facility] Comment on above: Performed By: #### D IFF CBC, BMP #### [address] RBC (Bld) [#/Vol] 4.28 10*6/uL Normal 3.60-5.00 [facility] Comment on above: Performed By: #### D IFF CBC, BMP #### [address] Segmented neutrophils/100 WBC (Bld) 62 % Normal 50-70 [facility] Comment on above: Performed By: #### D IFF CBC, BMP #### [address] WBC (Bld) [#/Vol] 7.2 10*3/uL Normal 3.8-11.[address] [facility] Comment on above: Performed By: #### D IFF CBC, BMP #### [address] White Blood Count 7.2 [CFU]/mL Normal 3.8-11.6 [facility] Comment on above: Performed By: #### D IFF CBC, BMP #### [address] Glucose Poct Glucometerson 1 Glucose [Mass/Vol] 113 mg/dL Normal [facility] Comment on above: Result Comment: [place] Glucose Reference Range is dependent on time and content of last meal. Glucose of more than 200 mg/dL in a nonstressed, ambulatory subject supports the diagnosis of Diabetes Mellitus. PERFORMED BY: [address] [place] [address] PATHOLOGIST POWER TONG OPERATOR ARABELLA ALEXANDER M.D. Performed By: #### G LULS #### Point of Care testing , Glucose [Mass/Vol] 183 mg/dL Normal [facility] Comment on above: Result Comment: [place] [facility] Glucose Reference Range is dependent on time and content of last meal. Glucose of more than 200 mg/dL in a nonstressed, ambulatory subject supports the diagnosis of Diabetes Mellitus. PERFORMED BY: [place] [address] PATHOLOGIST POWER TONG OPERATOR ARABELLA ALEXANDER M.D. Performed By: #### G LULS #### Point of Care testing , Glucose [Mass/Vol] 80 mg/dL Normal [facility] Comment on above: Result Comment: [place] Glucose Reference Range is dependent on time and content of last meal. Glucose of more than 200 mg/dL in a nonstressed, ambulatory subject supports the diagnosis of Diabetes Mellitus. PERFORMED BY: [place] [address] PATHOLOGIST POWER TONG OPERATOR ARABELLA ALEXANDER M.D. Performed By: #### G LULS #### Point of Care testing , Commemt1 Glu2: Cleaned Meter Normal [facility] Comment on above: Result Comment: PERF ORMED BY: [address] [id number] PATHOLOGIST POWER TONG OPERATOR ARABELLA ALEXANDER M.D. Performed By: #### G LULS #### Point of Care testing , Glucose [Mass/Vol] 112 mg/dL Normal [facility] Comment on above: Result Comment: [place] Glucose Reference Range is dependent on time and content of last meal. Glucose of more than 200 mg/dL in a nonstressed, ambulatory subject supports the diagnosis of Diabetes Mellitus. Performed By: #### G LULS #### Point of Care testing , Renal Function Panelon 05-24 Albumin [Mass/Vol] 3.4 g/dL Low 3.5-5.[address] [facility] Comment on above: Performed By: #### G LULS #### Point of Care testing , Anion gap [Moles/Vol] 12.6 mmol/L Normal 6.0-15.0 [facility] Comment on above: Performed By: #### G LULS #### Point of Care testing , CO2 [Moles/Vol] 28.2 mmol/L Normal 21.0-31.0 [facility] Comment on above: Performed By: #### G LULS #### Point of Care testing , Creatinine [Mass/Vol] 2.44 mg/dL High 0.60-1.20 [facility] Comment on above: Performed By: #### G LULS #### Point of Care testing , Creatinine Clr Calc Pharmacy 17.92 Normal [facility] Comment on above: Result Comment: PERF ORMED BY: [address] [address] PATHOLOGIST POWER TONG OPERATOR ARABELLA ALEXANDER M.D. Performed By: #### G LULS #### Point of Care testing , GFR/1.73 sq M.predicted MDRD (S/P/Bld) [Vol rate/Area] 21.172 mL/min/{1.73_m2} Normal [facility] Comment on above: Performed By: #### G LULS #### Point of Care testing , Phosphate [Mass/Vol] 4.6 mg/dL High 2.5-4.5 [facility] Comment on above: Performed By: #### G LULS #### Point of Care testing , Basic Metabolic Panelon Anion gap [Moles/Vol] 12.5 mmol/L Normal 6.0-15.0 [facility] Comment on above: Performed By: #### G LULS #### Point of Care testing , Calcium [Mass/Vol] 8.6 mg/dL Normal 8.6-10.[address] [facility] Comment on above: Performed By: #### G LULS #### Point of Care testing , Chloride [Moles/Vol] 98 mmol/L Normal 98-107 [facility] Comment on above: Performed By: #### G LULS #### Point of Care testing , CO2 [Moles/Vol] 25.4 mmol/L Normal 21.0-31.0 [facility] Comment on above: Performed By: #### G LULS #### Point of Care testing , Creatinine [Mass/Vol] 2.49 mg/dL High 0.60-1.20 [facility] Comment on above: Performed By: #### G LULS #### Point of Care testing , Creatinine Clr Calc Pharmacy 17.53 Normal [facility] Comment on above: Result Comment: PERF ORMED BY: [facility] [address] [place] [address] PATHOLOGIST POWER TONG OPERATOR ARABELLA ALEXANDER M.D. Performed By: #### G LULS #### Point of Care testing , GFR/1.73 sq M.predicted MDRD (S/P/Bld) [Vol rate/Area] 20.662 mL/min/{1.73_m2} Normal [facility] Comment on above: Performed By: #### G LULS #### Point of Care testing , Glucose [Mass/Vol] 74 mg/dL Abnormal 70-[address] [facility] Comment on above: Result Comment: [place] Glucose Reference Range is dependent on time and content of last meal. Glucose of more than 200 mg/dL in a nonstressed, ambulatory subject supports the diagnosis of Diabetes Mellitus. ADA recommended reference range Performed By: #### G LULS #### Point of Care testing , Potassium [Moles/Vol] 3.9 mmol/L Normal 3.5-5.1 [facility] Comment on above: Performed By: #### G LULS #### Point of Care testing , Sodium [Moles/Vol] 132 mmol/L Low 136-[address] [facility] Comment on above: Performed By: #### G LULS #### Point of Care testing , Urea nitrogen [Mass/Vol] 27 mg/dL High 7-25 [facility] Comment on above: Performed By: #### G LULS #### Point of Care testing , Complete Blood Count Auto Di ffon 05-23-2025 Basophils (Bld) [#/Vol] 0.0 10*3/uL Normal 0.0-0.2 [facility] Comment on above: Result Comment: PERF ORMED BY: [facility] [place] [address] PATHOLOGIST POWER TONG OPERATOR ARABELLA ALEXANDER M.D. Performed By: #### G LULS #### Point of Care testing , Basophils/100 WBC (Bld) 0.5 % Normal . [facility] Comment on above: Performed By: #### G LULS #### Point of Care testing , Eosinophils (Bld) [#/Vol] 0.1 10*3/uL Normal 0.0-0.45 [facility] Comment on above: Performed By: #### G LULS #### Point of Care testing , Eosinophils/100 WBC (Bld) 1.4 % Normal . [facility] Comment on above: Performed By: #### G LULS #### Point of Care testing , Erythrocyte distribution width (RBC) [Ratio] 13.9 % Normal 11.9-15.3 [facility] Comment on above: Performed By: #### G LULS #### Point of Care testing , Hematocrit (Bld) [Volume fraction] 32.9 % Low 34.0-46.4 [facility] Comment on above: Performed By: #### G LULS #### Point of Care testing , Hemoglobin (Bld) [Mass/Vol] 11.2 g/dL Low 11.8-15.4 [facility] Comment on above: Performed By: #### G LULS #### Point of Care testing , Lymphocytes (Bld) [#/Vol] 1.5 10*3/uL Normal 1.00-4.8 [facility] Comment on above: Performed By: #### G LULS #### Point of Care testing , Lymphocytes/100 WBC (Bld) 16.7 % Normal . [facility] Comment on above: Performed By: #### G LULS #### Point of Care testing , MCH (RBC) [Entitic mass] 26.1 pg Normal 24.7-34.3 [facility] Comment on above: Performed By: #### G LULS #### Point of Care testing , MCV (RBC) [Entitic vol] 76.7 fL Low 80-100 [facility] Comment on above: Performed By: #### G LULS #### Point of Care testing , Mean Corpuscular HGB Conc 34.0 g/dL Normal 32.0-35.0 [facility] Comment on above: Performed By: #### G LULS #### Point of Care testing , Monocytes (Bld) [#/Vol] 0.7 10*3/uL Normal 0.0-0.8 [facility] Comment on above: Performed By: #### G LULS #### Point of Care testing , Monocytes/100 WBC (Bld) 8.2 % Normal . [facility] Comment on above: Performed By: #### G LULS #### Point of Care testing , Neutrophils (Bld) [#/Vol] 6.6 10*3/uL Normal 1.8-7.7 [facility] Comment on above: Performed By: #### G LULS #### Point of Care testing , Neutrophils/100 WBC (Bld) 73.2 % Normal . [facility] Comment on above: Performed By: #### G LULS #### Point of Care testing , NRBC% 0.3 /100{WBC} Normal 0-0.5 [facility] Comment on above: Performed By: #### G LULS #### Point of Care testing , Platelet mean volume (Bld) [Entitic vol] 8.6 fL Normal 6.3-10.7 [facility] Comment on above: Performed By: #### G LULS #### Point of Care testing , Platelets (Bld) [#/Vol] 309 10*3/uL Normal 150-450 [facility] Comment on above: Performed By: #### G LULS #### Point of Care testing , RBC (Bld) [#/Vol] 4.29 10*6/uL Normal 3.60-5.00 [facility] Comment on above: Performed By: #### G LULS #### Point of Care testing , WBC (Bld) [#/Vol] 9.0 10*3/uL Normal 3.8-11.[address] [facility] Comment on above: Performed By: #### G LULS #### Point of Care testing , White Blood Count 9.0 [CFU]/mL Normal 3.8-11.6 [facility] Comment on above: Performed By: #### G LULS #### Point of Care testing , Glucose Poct Glucometerson 1 Commemt1 Glu2: Cleaned Meter Normal [facility] Comment on above: Result Comment: PERF ORMED BY: [facility] [address] [facility] [place] [address] PATHOLOGIST POWER TONG OPERATOR ARABELLA ALEXANDER M.D. Performed By: #### G LULS #### Point of Care testing , Glucose [Mass/Vol] 131 mg/dL Normal [facility] Comment on above: Result Comment: [place] Glucose Reference Range is dependent on time and content of last meal. Glucose of more than 200 mg/dL in a nonstressed, ambulatory subject supports the diagnosis of Diabetes Mellitus. Performed By: #### G LULS #### Point of Care testing , Glucose [Mass/Vol] 202 mg/dL Normal [facility] Comment on above: Result Comment: [place] om Glucose Reference Range is dependent on time and content of last meal. Glucose of more than 200 mg/dL in a nonstressed, ambulatory subject supports the diagnosis of Diabetes Mellitus. PERFORMED BY: [facility] [address] [facility] [place] [address] PATHOLOGIST POWER TONG OPERATOR ARABELLA ALEXANDER M.D. Performed By: #### G LULS #### Point of Care testing , Glucose [Mass/Vol] 88 mg/dL Normal [facility] Comment on above: Result Comment: [place] Glucose Reference Range is dependent on time and content of last meal. Glucose of more than 200 mg/dL in a nonstressed, ambulatory subject supports the diagnosis of Diabetes Mellitus. PERFORMED BY: [place] [address] PATHOLOGIST POWER TONG OPERATOR ARABELLA ALEXANDER M.D. Performed By: #### G LULS #### Point of Care testing , Glucose [Mass/Vol] 79 mg/dL Normal [facility] Comment on above: Result Comment: [facility] Glucose Reference Range is dependent on time and content of last meal. Glucose of more than 200 mg/dL in a nonstressed, ambulatory subject supports the diagnosis of Diabetes Mellitus. PERFORMED BY: [place] [address] PATHOLOGIST POWER TONG OPERATOR ARABELLA ALEXANDER M.D. Performed By: #### G LULS #### Point of Care testing , Hep B Real-Time PCR, Quanton 05-23-2025 HBV As IU/mL Not detected Normal . [facility] Comment on above: Order Comment: Comme nt Send tubes to dialysis Performed By: #### D IFF CBC, BMP #### [address] Log10 HBV (As IU/mL) Normal . [facility] Comment on above: Order Comment: Comme nt Send tubes to dialysis Result Comment: Resu lt Units: log10 IU/mL Unable to calculate result since non-numeric result obtained for component test. Performed By: #### D IFF CBC, BMP #### [facility] [address] [place] [address] Test Information: Comment Normal . [facility] Comment on above: Order Comment: Comme nt Send tubes to dialysis Result Comment: The reportable range for this assay is 10 IU/mL to 1 billion IU/mL. Performed at: [address] [id number] It Auditor: Chris Luna PhD, Phone: [phone] PERFORMED BY: [place] [address] PATHOLOGIST POWER TONG OPERATOR ARABELLA ALEXANDER M.D. Performed By: #### D IFF CBC, BMP #### [facility] [address] US map hemodial access BILon 05-23-2025 US map hemodial access [facility] [address] [place] [address] [place] [address] Ultrasound Report Signed Patient: Aislinn Wheeler MR#: [id number] 01 : 1960 Acct:[id number] Age/Sex: 65 / F ADM Date: 05/20/25 Loc: Room: [address] [place] [address] Type: ADM IN Attending Dr: Ankush Farmer MD Ordering Provider: Eli Sprague MD Date of Service: 05/22/25 US/US map hemodial access GURJIT: Placement of AV Fistula Copies to: MD Ankush Andrea MD Bilateral upper extremity vein mapping INDICATIONS: Need for hemodialysis access FINDINGS: Right upper extremity: The cephalic nor basilic veins have adequate diameter for fistula creation at this time. Left upper extremity: As above US/US map hemodial access GURJIT IMPRESSION: Inadequate vein for fistula creation in the bilateral upper extremities at this time. Impression dictated by: Rajendra Nielsen MD,[facility] 05/23/2025 1:51 PM Dictation Location: [place] [address] Tech: Griselda Zahraa Transcribed By: [facility] 05/23/25 1351 Dictated By: Rajendra Nielsen MD 05/23/25 1350 Signed By: 05/23/25 1351 Normal [facility] Basic Metabolic Panelon 10-0 Anion gap [Moles/Vol] 13.1 mmol/L Normal 6.0-15.0 [facility] Comment on above: Performed By: #### G LULS #### Point of Care testing , Calcium [Mass/Vol] 8.2 mg/dL Low 8.6-10.[address] [facility] Comment on above: Performed By: #### G LULS #### Point of Care testing , Chloride [Moles/Vol] 104 mmol/L Normal 98-107 [facility] Comment on above: Performed By: #### G LULS #### Point of Care testing , CO2 [Moles/Vol] 17.5 mmol/L Low 21.0-31.0 [facility] Comment on above: Performed By: #### G LULS #### Point of Care testing , Creatinine [Mass/Vol] 3.74 mg/dL High 0.60-1.20 [facility] Comment on above: Performed By: #### G LULS #### Point of Care testing , Creatinine Clr Calc Pharmacy 11.73 Normal [facility] Comment on above: Performed By: #### G LULS #### Point of Care testing , GFR/1.73 sq M.predicted MDRD (S/P/Bld) [Vol rate/Area] 12.682 mL/min/{1.73_m2} Normal [facility] Comment on above: Performed By: #### G LULS #### Point of Care testing , Glucose [Mass/Vol] 189 mg/dL High 70-[address] [facility] Comment on above: Result Comment: [place] Glucose Reference Range is dependent on time and content of last meal. Glucose of more than 200 mg/dL in a nonstressed, ambulatory subject supports the diagnosis of Diabetes Mellitus. ADA recommended reference range Performed By: #### G LULS #### Point of Care testing , Potassium [Moles/Vol] 4.6 mmol/L Normal 3.5-5.1 [facility] Comment on above: Performed By: #### G LULS #### Point of Care testing , Sodium [Moles/Vol] 130 mmol/L Low 136-[address] [facility] Comment on above: Performed By: #### G LULS #### Point of Care testing , Urea nitrogen [Mass/Vol] 54 mg/dL High 7-25 [facility] Comment on above: Performed By: #### G LULS #### Point of Care testing , Complete Blood Count Auto Di ffon 05-22-2025 Basophils (Bld) [#/Vol] 0.1 10*3/uL Normal 0.0-0.2 [facility] Comment on above: Result Comment: PERF ORMED BY: [facility] [place] [address] PATHOLOGIST POWER TONG OPERATOR ARABELLA ALEXANDER M.D. Performed By: #### H BSAB, HBCAB, HEPACUTE #### [facility] , Basophils/100 WBC (Bld) 0.9 % Normal . [facility] Comment on above: Performed By: #### H BSAB, HBCAB, HEPACUTE #### [facility] , Eosinophils (Bld) [#/Vol] 0.2 10*3/uL Normal 0.0-0.45 [facility] Comment on above: Performed By: #### H BSAB, HBCAB, HEPACUTE #### [facility] , Eosinophils/100 WBC (Bld) 2.3 % Normal . [facility] Comment on above: Performed By: #### H BSAB, HBCAB, HEPACUTE #### [facility] , Erythrocyte distribution width (RBC) [Ratio] 14.1 % Normal 11.9-15.3 [facility] Comment on above: Performed By: #### H BSAB, HBCAB, HEPACUTE #### [facility] , Hematocrit (Bld) [Volume fraction] 29.9 % Low 34.0-46.4 [facility] Comment on above: Performed By: #### H BSAB, HBCAB, HEPACUTE #### [facility] , Hemoglobin (Bld) [Mass/Vol] 9.9 g/dL Low 11.8-15.4 [facility] Comment on above: Performed By: #### H BSAB, HBCAB, HEPACUTE #### [facility] , Lymphocytes (Bld) [#/Vol] 2.2 10*3/uL Normal 1.00-4.8 [facility] Comment on above: Performed By: #### H BSAB, HBCAB, HEPACUTE #### [facility] , Lymphocytes/100 WBC (Bld) 25.9 % Normal . [facility] Comment on above: Performed By: #### H BSAB, HBCAB, HEPACUTE #### [facility] , MCH (RBC) [Entitic mass] 26.3 pg Normal 24.7-34.3 [facility] Comment on above: Performed By: #### H BSAB, HBCAB, HEPACUTE #### [facility] , MCV (RBC) [Entitic vol] 79.1 fL Low 80-100 [facility] Comment on above: Performed By: #### H BSAB, HBCAB, HEPACUTE #### [facility] , Mean Corpuscular HGB Conc 33.3 g/dL Normal 32.0-35.0 [facility] Comment on above: Performed By: #### H BSAB, HBCAB, HEPACUTE #### [facility] , Monocytes (Bld) [#/Vol] 0.7 10*3/uL Normal 0.0-0.8 [facility] Comment on above: Performed By: #### H BSAB, HBCAB, HEPACUTE #### [facility] , Monocytes/100 WBC (Bld) 8.2 % Normal . [facility] Comment on above: Performed By: #### H BSAB, HBCAB, HEPACUTE #### [facility] , Neutrophils (Bld) [#/Vol] 5.3 10*3/uL Normal 1.8-7.7 [facility] Comment on above: Performed By: #### H BSAB, HBCAB, HEPACUTE #### [facility] , Neutrophils/100 WBC (Bld) 62.7 % Normal . [facility] Comment on above: Performed By: #### H BSAB, HBCAB, HEPACUTE #### [facility] , NRBC% 0.0 /100{WBC} Normal 0-0.5 [facility] Comment on above: Performed By: #### H BSAB, HBCAB, HEPACUTE #### [facility] , Platelet mean volume (Bld) [Entitic vol] 8.9 fL Normal 6.3-10.7 [facility] Comment on above: Performed By: #### H BSAB, HBCAB, HEPACUTE #### [facility] , Platelets (Bld) [#/Vol] 299 10*3/uL Normal 150-450 [facility] Comment on above: Performed By: #### H BSAB, HBCAB, HEPACUTE #### [facility] , RBC (Bld) [#/Vol] 3.78 10*6/uL Normal 3.60-5.00 [facility] Comment on above: Performed By: #### H BSAB, HBCAB, HEPACUTE #### [facility] , WBC (Bld) [#/Vol] 8.4 10*3/uL Normal 3.8-11.[address] [facility] Comment on above: Performed By: #### H BSAB, HBCAB, HEPACUTE #### [facility] , White Blood Count 8.4 [CFU]/mL Normal 3.8-11.6 [facility] Comment on above: Performed By: #### H BSAB, HBCAB, HEPACUTE #### [facility] , Ferritinon 05-22-2025 Ferritin [Mass/Vol] 368.0 ng/mL High 11.0-306.8 [facility] Comment on above: Performed By: #### G DIANE #### Point of Care testing , Glucose Poct Glucometerson 1 Glucose [Mass/Vol] 155 mg/dL Normal [facility] Comment on above: Result Comment: [facility] Glucose Reference Range is dependent on time and content of last meal. Glucose of more than 200 mg/dL in a nonstressed, ambulatory subject supports the diagnosis of Diabetes Mellitus. PERFORMED BY: [facility] [place] [place] [address] PATHOLOGIST POWER TONG OPERATOR ARABELLA ALEXANDER M.D. Performed By: #### H BSAB, HBCAB, HEPACUTE #### [facility] , Glucose [Mass/Vol] 261 mg/dL Normal [facility] Comment on above: Result Comment: [place] [facility] Glucose Reference Range is dependent on time and content of last meal. Glucose of more than 200 mg/dL in a nonstressed, ambulatory subject supports the diagnosis of Diabetes Mellitus. PERFORMED BY: [place] [address] PATHOLOGIST POWER TONG OPERATOR ARABELLA ALEXANDER M.D. Performed By: #### H BSAB, HBCAB, HEPACUTE #### [facility] , Glucose [Mass/Vol] 183 mg/dL Normal [facility] Comment on above: Result Comment: [place] om Glucose Reference Range is dependent on time and content of last meal. Glucose of more than 200 mg/dL in a nonstressed, ambulatory subject supports the diagnosis of Diabetes Mellitus. PERFORMED BY: [place] [address] PATHOLOGIST POWER TONG OPERATOR ARABELLA ALEXANDER M.D. Performed By: #### G LULS #### Point of Care testing , Hepatitis Be Antibodyon Hepatitis Be Antibody Non-Reactive Normal Negative [facility] Comment on above: Result Comment: Perf ormed at: - [facility] [id number] It Auditor: Chris Luna PhD, Phone: [phone] Performed By: #### H BSAB, HBCAB, HEPACUTE #### [facility] , Hepatitis Be Antigenon 05-22 Hepatitis Be Antigen Negative Normal Negative [facility] Comment on above: Result Comment: PERF ORMED BY: [place] [address] PATHOLOGIST POWER TONG OPERATOR ARABELLA ALEXANDER M.D. Performed By: #### H BSAB, HBCAB, HEPACUTE #### [facility] , Iron and TIBC Profileon % Iron Saturation 9.6 % Low 20-50 [facility] Comment on above: Performed By: #### G LULS #### Point of Care testing , Iron [Mass/Vol] 18 ug/dL Low 50-212 [facility] Comment on above: Performed By: #### G LULS #### Point of Care testing , Total Iron Binding Capacity 188 ug/dL Low 255-450 [facility] Comment on above: Performed By: #### G LULS #### Point of Care testing , Transferrin [Mass/Vol] 134 mg/dL Low 203-362 [facility] Comment on above: Performed By: #### G LULS #### Point of Care testing , Vit. B12/Folate Profileon Cobalamin (Vitamin B12) [Mass/Vol] 235 pg/mL Normal 180-914 [facility] Comment on above: Performed By: #### G LULS #### Point of Care testing , Folate 17.8 ng/mL Normal >5.9 [facility] Comment on above: Result Comment: Tiana te reference range: >5.9 ng/ml The WHO technical consultation on folate and vitamin b12 deficiencies has determined that folate concentrations less than 4 ng/ml are considered deficient. PERFORMED BY: [place] [address] PATHOLOGIST POWER TONG OPERATOR ARABELLA ALEXANDER M.D. Performed By: #### G LULS #### Point of Care testing , A1C with Estimated Average G [facility] 05-21-2025 Glucose [Mass/Vol] 269 mg/dL Normal [facility] Comment on above: Result Comment: PERF ORMED BY: [place] [address] PATHOLOGIST POWER TONG OPERATOR ARABELLA ALEXANDER M.D. Performed By: #### D IFF CBC, BMP #### [address] [facility] HbA1c (Bld) [Mass fraction] 11.0 % High 4.3-5.6 [facility] Comment on above: Result Comment: Incr eased risk for diabetes: 5.7 - 6.4 diabetes: >6.4 glycemic control for adults with diabetes: <7.0 Performed By: #### D IFF CBC, BMP #### [address] Basic Metabolic Panelon 10-0 Anion gap [Moles/Vol] 11.9 mmol/L Normal 6.0-15.0 [facility] Comment on above: Performed By: #### G LULS #### Point of Care testing , Calcium [Mass/Vol] 8.4 mg/dL Low 8.6-10.[address] [facility] Comment on above: Performed By: #### G LULS #### Point of Care testing , Chloride [Moles/Vol] 108 mmol/L High 98-107 [facility] Comment on above: Performed By: #### G LULS #### Point of Care testing , CO2 [Moles/Vol] 17.8 mmol/L Low 21.0-31.0 [facility] Comment on above: Performed By: #### G LULS #### Point of Care testing , Creatinine [Mass/Vol] 3.79 mg/dL High 0.60-1.20 [facility] Comment on above: Performed By: #### G LULS #### Point of Care testing , Creatinine Clr Calc Pharmacy 10.35 Normal [facility] Comment on above: Result Comment: PERF ORMED BY: [place] [address] PATHOLOGIST POWER TONG OPERATOR ARABELLA ALEXANDER M.D. Performed By: #### G LULS #### Point of Care testing , GFR/1.73 sq M.predicted MDRD (S/P/Bld) [Vol rate/Area] 12.481 mL/min/{1.73_m2} Normal [facility] Comment on above: Performed By: #### G LULS #### Point of Care testing , Glucose [Mass/Vol] 164 mg/dL High 70-[address] [facility] Comment on above: Result Comment: [facility] Glucose Reference Range is dependent on time and content of last meal. Glucose of more than 200 mg/dL in a nonstressed, ambulatory subject supports the diagnosis of Diabetes Mellitus. ADA recommended reference range Performed By: #### G LULS #### Point of Care testing , Potassium [Moles/Vol] 4.7 mmol/L Normal 3.5-5.1 [facility] Comment on above: Performed By: #### G LULS #### Point of Care testing , Sodium [Moles/Vol] 133 mmol/L Low 136-[address] [facility] Comment on above: Performed By: #### G LULS #### Point of Care testing , Urea nitrogen [Mass/Vol] 57 mg/dL High 7-25 [facility] Comment on above: Performed By: #### G LULS #### Point of Care testing , Complete Blood Count Auto Di ffon 05-21-2025 Basophils (Bld) [#/Vol] 0.1 10*3/uL Normal 0.0-0.2 [facility] Comment on above: Result Comment: PERF ORMED BY: [facility] [address] [place] [address] PATHOLOGIST POWER TONG OPERATOR ARABELLA ALEXANDER M.D. Performed By: #### G LULS #### Point of Care testing , Basophils/100 WBC (Bld) 0.8 % Normal . [facility] Comment on above: Performed By: #### G LULS #### Point of Care testing , Eosinophils (Bld) [#/Vol] 0.2 10*3/uL Normal 0.0-0.45 [facility] Comment on above: Performed By: #### G LULS #### Point of Care testing , Eosinophils/100 WBC (Bld) 2.3 % Normal . [facility] Comment on above: Performed By: #### G LULS #### Point of Care testing , Erythrocyte distribution width (RBC) [Ratio] 14.3 % Normal 11.9-15.3 [facility] Comment on above: Performed By: #### G LULS #### Point of Care testing , Hematocrit (Bld) [Volume fraction] 30.7 % Low 34.0-46.4 [facility] Comment on above: Performed By: #### G LULS #### Point of Care testing , Hemoglobin (Bld) [Mass/Vol] 10.1 g/dL Low 11.8-15.4 [facility] Comment on above: Performed By: #### G LULS #### Point of Care testing , Lymphocytes (Bld) [#/Vol] 1.9 10*3/uL Normal 1.00-4.8 [facility] Comment on above: Performed By: #### G LULS #### Point of Care testing , Lymphocytes/100 WBC (Bld) 28.3 % Normal . [facility] Comment on above: Performed By: #### G LULS #### Point of Care testing , MCH (RBC) [Entitic mass] 26.3 pg Normal 24.7-34.3 [facility] Comment on above: Performed By: #### G LULS #### Point of Care testing , MCV (RBC) [Entitic vol] 80.3 fL Normal 80-100 [facility] Comment on above: Performed By: #### G LULS #### Point of Care testing , Mean Corpuscular HGB Conc 32.8 g/dL Normal 32.0-35.0 [facility] Comment on above: Performed By: #### G LULS #### Point of Care testing , Monocytes (Bld) [#/Vol] 0.6 10*3/uL Normal 0.0-0.8 [facility] Comment on above: Performed By: #### G LULS #### Point of Care testing , Monocytes/100 WBC (Bld) 9.2 % Normal . [facility] Comment on above: Performed By: #### G LULS #### Point of Care testing , Neutrophils (Bld) [#/Vol] 4.0 10*3/uL Normal 1.8-7.7 [facility] Comment on above: Performed By: #### G LULS #### Point of Care testing , Neutrophils/100 WBC (Bld) 59.4 % Normal . [facility] Comment on above: Performed By: #### G LULS #### Point of Care testing , NRBC% 0.1 /100{WBC} Normal 0-0.5 [facility] Comment on above: Performed By: #### G LULS #### Point of Care testing , Platelet mean volume (Bld) [Entitic vol] 9.1 fL Normal 6.3-10.7 [facility] Comment on above: Performed By: #### G LULS #### Point of Care testing , Platelets (Bld) [#/Vol] 300 10*3/uL Normal 150-450 [facility] Comment on above: Performed By: #### G LULS #### Point of Care testing , RBC (Bld) [#/Vol] 3.83 10*6/uL Normal 3.60-5.00 [facility] Comment on above: Performed By: #### G LULS #### Point of Care testing , WBC (Bld) [#/Vol] 6.8 10*3/uL Normal 3.8-11.[address] [facility] Comment on above: Performed By: #### G LULS #### Point of Care testing , White Blood Count 6.8 [CFU]/mL Normal 3.8-11.6 [facility] Comment on above: Performed By: #### G LULS #### Point of Care testing , Glucose Poct Glucometerson 1 Glucose [Mass/Vol] 206 mg/dL Normal [facility] Comment on above: Result Comment: [facility] Glucose Reference Range is dependent on time and content of last meal. Glucose of more than 200 mg/dL in a nonstressed, ambulatory subject supports the diagnosis of Diabetes Mellitus. PERFORMED BY: [facility] [place] [address] PATHOLOGIST POWER TONG OPERATOR ARABELLA ALEXANDER M.D. Performed By: #### G LULS #### Point of Care testing , Glucose [Mass/Vol] 206 mg/dL Normal [facility] Comment on above: Result Comment: [facility] Glucose Reference Range is dependent on time and content of last meal. Glucose of more than 200 mg/dL in a nonstressed, ambulatory subject supports the diagnosis of Diabetes Mellitus. PERFORMED BY: [facility] [address] [place] [address] PATHOLOGIST POWER TONG OPERATOR ARABELLA ALEXANDER M.D. Performed By: #### H BSAB, HBCAB, HEPACUTE #### [facility] , Glucose [Mass/Vol] 166 mg/dL Normal [facility] Comment on above: Result Comment: [facility] Glucose Reference Range is dependent on time and content of last meal. Glucose of more than 200 mg/dL in a nonstressed, ambulatory subject supports the diagnosis of Diabetes Mellitus. PERFORMED BY: [facility] [address] [facility] [place] [address] PATHOLOGIST POWER TONG OPERATOR ARABELLA ALEXANDER M.D. Performed By: #### G LULS #### Point of Care testing , Hepatitis Acute Panelon 10-0 HBsAg Screen Negative Normal Negative [facility] Comment on above: Performed By: #### H BSAB, HBCAB, HEPACUTE #### [facility] , Hepatitis A Antibody IgM Negative Normal Negative [facility] Comment on above: Result Comment: A ne gative anti-HAV IgM result suggests no recent or current HAV infection. Performed By: #### H BSAB, HBCAB, HEPACUTE #### [facility] , Hepatitis B Core Antibody IgM Negative Normal Negative [facility] Comment on above: Performed By: #### H BSAB, HBCAB, HEPACUTE #### [facility] , Hepatitis C Virus Antibody Non-Reactive Normal Non Reactive [facility] Comment on above: Performed By: #### H BSAB, HBCAB, HEPACUTE #### [facility] , Interpretation Hepatitis C Comment Normal . [facility] Comment on above: Result Comment: Not infected with HCV unless early or acute infection is suspected (which may be delayed in an immunocompromised individual), or other evidence exists to indicate HCV infection. Performed By: #### H BSAB, HBCAB, HEPACUTE #### [facility] , Hepatitis B Core Antibodyon 05-21-2025 Hepatitis B Core Antibody Positive Critically abnormal Negative [facility] Comment on above: Result Comment: Perf ormed at: - [facility] [place] [address] [place], [place] [id number] It Auditor: Chris Luna PhD, Phone: [phone] PERFORMED BY: [place] [address] PATHOLOGIST POWER TONG OPERATOR ARABELLA ALEXANDER M.D. Performed By: #### H BSAB, HBCAB, HEPACUTE #### [facility] , Hepatitis B Surface Antibody on 05-21-2025 Hepatitis B Surface Antibody Non-Reactive Normal . [facility] Comment on above: Result Comment: Non Reactive: Not immune to HBV infection. Anti-HBs undetectable or less than 10 mIU/mL. Reactive: Evidence of HBV immunity. Anti-HBs levels greater than 10 mIU/mL. Performed By: #### H BSAB, HBCAB, HEPACUTE #### [facility] , Alanine aminotransferase [En zymatic activity/volume] in Serum or PlasmaOrdered By: Aleksey Clemente on 05-20-2025 ALT [Catalytic activity/Vol] 8 U/L Normal 7-52 [facility] Comment on above: Performed By: #### D IFF CBC, BMP #### [facility] [address] [place] [address] [place] Albumin [Mass/volume] in Ser um or Plasma by Bromocresol green (BCG) dye binding methoOrdered By: Aleksey Clemente on 05-20-2025 Albumin BCG dye [Mass/Vol] 3.5 g/dL 3.5-5.7 [facility] Alkaline phosphatase [Enzyma tic activity/volume] in Serum or PlasmaOrdered By: Aleksey Clemente on 05-20-2025 ALP [Catalytic activity/Vol] 97 U/L Normal 34-104 [facility] Comment on above: Performed By: #### D IFF CBC, BMP #### [facility] [address] [place] [address] Aspartate aminotransferase [ Enzymatic activity/volume] in Serum or PlasmaOrdered By: Aleksey Clemente on 05-20-2025 AST [Catalytic activity/Vol] 10 U/L Low 13-39 [facility] Comment on above: Performed By: #### D IFF CBC, BMP #### [address] BNP ser/plasOrdered By: Misael Clemente on 05-20-2025 Natriuretic peptide B (Bld) [Mass/Vol] 82.0 pg/mL Normal 5-100 [facility] Comment on above: Result Comment: PERF ORMED BY: [place] [address] PATHOLOGIST POWER TONG OPERATOR ARABELLA ALEXANDER M.D. Performed By: #### D IFF CBC, BMP #### [address] Bacteria [Presence] in Urine sediment by Light microscopyOrdered By: Aleksey Clemente on 05-20-2025 Bacteria LM Ql (Urine sed) 1+ [HPF] High None Seen [facility] Basic Metabolic Panelon 04-23 Creatinine Clr Calc Pharmacy 11.11 Normal [facility] Comment on above: Result Comment: PERF ORMED BY: [place] [address] PATHOLOGIST POWER TONG OPERATOR ARABELLA ALEXANDER M.D. Performed By: #### D IFF CBC, BMP #### [address] GFR/1.73 sq M.predicted MDRD (S/P/Bld) [Vol rate/Area] 11.986 mL/min/{1.73_m2} Normal [facility] Comment on above: Performed By: #### D IFF CBC, BMP #### [address] Basophils [#/volume] in Bloo d by Automated countOrdered By: Aleksey Clemente on 05-20-2025 Basophils (Bld) [#/Vol] 0.1 10*3/uL Normal 0.0-0.2 [facility] Comment on above: Result Comment: PERF ORMED BY: [place] [address] PATHOLOGIST POWER TONG OPERATOR ARABELLA ALEXANDER M.D. Performed By: #### D IFF CBC, BMP #### [facility] [address] Basophils/100 leukocytes in Blood by Automated countOrdered By: Aleksey Clemente on 05-20-2025 Basophils/100 WBC (Bld) 1.4 % Normal . [facility] Comment on above: Performed By: #### D IFF CBC, BMP #### [facility] [address] Bilirubin Test strip Ql (U)O rdered By: Aleksey Clemente on 05-20-2025 Bilirubin Ql (U) Negative Negative [facility] Bilirubin.direct [Mass/volum e] in Serum or PlasmaOrdered By: Aleksey Clemente on 05-20-2025 Bilirubin.direct [Mass/Vol] 0.10 mg/dL 0.03-0.18 [facility] Bilirubin.total [Mass/volume ] in Serum or PlasmaOrdered By: Aleksey Clemente on 05-20-2025 Bilirubin [Mass/Vol] 0.2 mg/dL Low 0.3-1.0 [facility] Comment on above: Performed By: #### D IFF CBC, BMP #### [facility] [address] [place] [address] CT abdomen pelvis wo conon 0 05-20-2025 CT abdomen pelvis wo con [facility] [place] [address] [place] [address] CT Scan Report Signed Patient: Aislinn Wheeler MR#: [id number] 01 : 1960 Acct:[id number] Age/Sex: 65 / F ADM Date: 05/20/25 Loc: ER Room: Type: [facility] ER Attending Dr: Copies to: Aleksey Clemente DO Ordering Provider: Aleksey Clemente DO Date of Service: 05/20/25 CT/CT chest wo con: cough ([id number]) CT/CT abdomen pelvis wo con: renal failure CT Chest, Abdomen and Pelvis without contrast TECHNIQUE: Axial imaging with 2-D reconstruction. The CT exam was performed using one or more the following dose reduction techniques: Automated exposure control, adjustment of the MA and/or Kv according to patient size, or use of the iterative reconstruction technique. History: Chest heaviness. Multiple falls. COMPARISON: None THYROID: No significant thyroid abnormality identified. AIRWAY: Central airway is patent. ESOPHAGUS: Esophagus normal course and caliber. HEART: Heart is not enlarged. PERICARDIAL EFFUSION: None CORONARY ARTERY CALCIFICATION: None MEDIASTINUM: Nonenlarged mediastinal lymph nodes identified. HILAR REGION: No hilar mass or adenopathy is seen. THORACIC AORTA: No thoracic aortic aneurysm or dissection. No atherosclerosis LUNG INTERSTITIUM: No infiltrate or congestion identified. PLEURAL EFFUSION No pleural effusion identified. PNEUMOTHORAX: No pneumothorax seen. LUNG NODULE: 12 mm noncalcified nodule in the lingular segment of left upper lobe. CHEST WALL: No chest wall abnormality seen. The bony chest intact. LIVER: No hepatic mass or intrahepatic biliary ductal dilatation is identified. Normal density of the liver parenchyma identified. GALLBLADDER: No gallbladder abnormalities identified. BILE DUCTS: No biliary duct dilatation identified. SPLEEN: Normal PANCREAS: Unremarkable ADRENAL GLANDS: The adrenal glands are unremarkable. KIDNEYS: Redemonstration of marked hydronephrosis and hydroureter. No obstructing stone. Consideration for the reflux and/or chronic hydronephrosis.. ABDOMINAL AORTA: The abdominal aorta is normal. RETROPERITONEUM: No significant retroperitoneal abnormalities identified. STOMACH:Nondistended SMALL BOWEL: The small bowel loops are nondistended. APPENDIX: The appendix is normal. COLON: There is no colitis or diverticulitis. URINARY BLADDER: Urinary bladder wall thickening. Similar finding. Underdistention. May represent cystitis. REPRODUCTIVE STRUCTURES: The reproductive structures are unremarkable. FREE AIR: None FREE FLUID: None ABDOMINAL WALL: No subcutaneous soft tissue abnormality identified. INGUINAL HERNIA: None BONES:Chronic L1 superior endplate compression deformity. No acute fracture seen. CT/CT chest wo con IMPRESSION: No acute traumatic injury of the chest, abdomen or pelvis. Similar marked bilateral hydronephrosis and hydroureter without obstructing stone. Continued urinary bladder wall thickening. May represent underdistention. May also represent muscular hypertrophy. Cystitis cannot be excluded. Correlate with urinalysis. PRELIMINARY RESULTS: None given Impression dictated by: Jori Ruiz M.D. 05/20/2025 6:29 PM Dictation Location: RADIO-PC-20 Transcribed By: AMEE 05/20/251828 Dictated By: Jori Ruiz DO 05/20/251818 Signed By: 05/20/251828 Normal [facility] CT head/brain wo conon 05-20 CT head/brain wo con [facility] [place] [address] CT Scan Report Signed Patient: Aislinn Wheeler MR#: [id number] 01 : 1960 Acct:[id number] Age/Sex: 65 / F ADM Date: 05/20/25 Loc: ER Room: Type: [facility] ER Attending Dr: Copies to: Aleksey Clemente DO Ordering Provider: Aleksey Clemente DO Date of Service: 05/20/25 CT/CT head/brain wo con: multiple falls Unenhanced head CT TECHNIQUE: Contiguous axial imaging of the head. The CT exam was performed using one or more the following dose reduction techniques: Automated exposure control, adjustment of the MA and/or Kv according to patient size, or use of the iterative reconstruction technique. COMPARISON: None HISTORY: Multiple falls. Chest heaviness. VENTRICLES: Within normal limits ATROPHY: None BRAIN PARENCHYMA: Adequate young-white matter differentiation identified. HEMORRHAGE: None HERNIATION: No mass effect or herniation INFARCTION: No recent vascular distribution infarction is seen. EXTRA-AXIAL FLUID COLLECTIONS None MIDBRAIN: Unremarkable JEREMI: Unremarkable MEDULLA: Unremarkable SINUSES: Unremarkable ORBITS: Grossly unremarkable MASTOIDS: Unremarkable BONY STRUCTURES Intact ADDITIONAL FINDINGS: CT/CT head/brain wo con IMPRESSION: No acute findings. Impression dictated by: Jori Ruiz M.D. 05/20/2025 6:18 PM Dictation Location: RADIO-PC-20 Transcribed By: AMEE 05/20/251817 Dictated By: Jori Ruiz DO 05/20/251816 Signed By: 05/20/251817 Normal [facility] Calcium [Mass/volume] in Ser um or PlasmaOrdered By: Aleksey Clemente on 05-20-2025 Calcium [Mass/Vol] 8.9 mg/dL Normal 8.6-10.3 [facility] Comment on above: Performed By: #### D IFF CBC, BMP #### [facility] [address] Carbon dioxide, total [Moles /volume] in Serum or PlasmaOrdered By: Aleksey Clemente on 05-20-2025 CO2 [Moles/Vol] 17.2 mmol/L Low 21.0-31.0 [facility] Comment on above: Performed By: #### D IFF CBC, BMP #### [facility] [address] Chloride [Moles/volume] in S ryan or PlasmaOrdered By: Aleksey Clemente on 05-20-2025 Chloride [Moles/Vol] 105 mmol/L Normal 98-107 [facility] Comment on above: Performed By: #### D IFF CBC, BMP #### [address] Color of Urine by AutoOrdere d By: Aleksey Clemente on 05-20-2025 Color (U) Yellow Normal Yellow [facility] Comment on above: Order Comment: Name Collection Type:: Clean-Voided Midstream Performed By: #### D IFF CBC, BMP #### [address] Complete Blood Count Auto Di ffon 05-20-2025 Mean Corpuscular HGB Conc 32.6 g/dL Normal 32.0-35.0 [facility] Comment on above: Performed By: #### D IFF CBC, BMP #### [place] [address] [place] Monocytes/100 WBC (Bld) 20.19 % High 0.00-20.00 [facility] Comment on above: Result Comment: For adults in ED, MDW > 20.0 may be associated with a higher risk of sepsis during the first 12 hrs of hospital admission Performed By: #### D IFF CBC, BMP #### [address] NRBC% 0.0 /100{WBC} Normal 0-0.5 [facility] Comment on above: Performed By: #### D IFF CBC, BMP #### [facility] [address] White Blood Count 8.7 [CFU]/mL Normal 3.8-11.6 [facility] Comment on above: Performed By: #### D IFF CBC, BMP #### [facility] [address] Creatinine [Mass/volume] in Serum or PlasmaOrdered By: Aleksey Clemente on 05-20-2025 Creatinine [Mass/Vol] 3.92 mg/dL High 0.60-1.20 [facility] Comment on above: Performed By: #### D IFF CBC, BMP #### [facility] [address] Dipstick and Microscopicon 0 05-20-2025 Bacteria,Urine 1+ [HPF] Normal None Seen [facility] Comment on above: Order Comment: Name Collection Type:: Clean-Voided Midstream Result Comment: PERF ORMED BY: [place] [address] PATHOLOGIST POWER TONG OPERATOR ARABELLA ALEXANDER M.D. Performed By: #### D IFF CBC, BMP #### [address] Bilirubin,Urine Negative Normal Negative [facility] Comment on above: Order Comment: Name Collection Type:: Clean-Voided Midstream Performed By: #### D IFF CBC, BMP #### [facility] [address] [place] [address] [place] Glucose Ql (U) 150 mg/dL Normal Normal [facility] Comment on above: Order Comment: Name Collection Type:: Clean-Voided Midstream Performed By: #### D IFF CBC, BMP #### [facility] [address] [place] [address] [place] Nitrite,Urine Negative Normal Negative [facility] Comment on above: Order Comment: Name Collection Type:: Clean-Voided Midstream Performed By: #### D IFF CBC, BMP #### [address] Occult Blood,Urine 3+ Normal Negative [facility] Comment on above: Order Comment: Name Collection Type:: Clean-Voided Midstream Result Comment: PERF ORMED BY: [place] [address] PATHOLOGIST POWER TONG OPERATOR ARABELLA ALEXANDER M.D. Performed By: #### D IFF CBC, BMP #### [address] RBC,Urine 20-49 Normal 0-4 [facility] Comment on above: Order Comment: Name Collection Type:: Clean-Voided Midstream Performed By: #### D IFF CBC, BMP #### [place] [address] [place] Specificy [place],Urine 1.020 Normal 1.001-1.030 [facility] Comment on above: Order Comment: Name Collection Type:: Clean-Voided Midstream Performed By: #### D IFF CBC, BMP #### [place] [address] [place] Squamous Epithelial Cell,Urine 3-4 Normal 0-2 [facility] Comment on above: Order Comment: Name Collection Type:: Clean-Voided Midstream Performed By: #### D IFF CBC, BMP #### [address] Urobilinogen,Urine Normal Normal Normal [facility] Comment on above: Order Comment: Name Collection Type:: Clean-Voided Midstream Performed By: #### D IFF CBC, BMP #### [place] [address] [place] WBC CLUMP, Urine Many Normal None Seen [facility] Comment on above: Order Comment: Name Collection Type:: Clean-Voided Midstream Performed By: #### D IFF CBC, BMP #### [place] [address] [place] WBC,Urine Innumerable Normal 0-4 [facility] Comment on above: Order Comment: Name Collection Type:: Clean-Voided Midstream Performed By: #### D IFF CBC, BMP #### [facility] [address] [place] [id number] [facility] ECG 12 lead ECGon 05-20-2025 ECG 12 lead ECG [facility] [place] [address] [place] [address] Electrocardiograph Report Signed Patient: Aislinn Wheeler MR#: [id number] 01 : 1960 Acct:[id number] Age/Sex: 65 / F ADM Date: 05/20/25 Loc: ER Room: Type: [facility] ER Attending Dr: Ordering Provider: Aleksey Clemente DO Date of Service: 05/20/25 ECG/ECG 12 lead ECG: Chest Pain Copies to: Test Reason : Blood Pressure : */* mmHG Vent. Rate : 72 BPM Atrial Rate : 72 BPM P-R Int : 162 ms QRS Dur : 74 ms QT Int : 398 ms P-R-T Axes : 44 45 16 degrees QTcB Int : 435 ms Normal sinus rhythm Normal ECG When compared with ECG of 23-Nov-2024 15:16, No significant change was found Confirmed by Aleksey Clemente ([id number]) on 05/20/2025 5:25:17 PM Referred By: Electronically Signed By: Aleksey Clemente Transcribed By: MUS Signed By Aleksey Clemente DO 1725 Normal [facility] Eosinophils [#/volume] in Bl ood by Automated countOrdered By: Aleksey Clemente on 05-20-2025 Eosinophils (Bld) [#/Vol] 0.1 10*3/uL Normal 0.0-0.45 [facility] Comment on above: Performed By: #### D IFF CBC, BMP #### [facility] [address] [place] [id number] [facility] Eosinophils/100 leukocytes i n Blood by Automated countOrdered By: Aleksey Clemente on 05-20-2025 Eosinophils/100 WBC (Bld) 0.7 % Normal . [facility] Comment on above: Performed By: #### D IFF CBC, BMP #### [facility] [address] Epithelial cells.squamous [# /area] in Urine sediment by Microscopy high power fieldOrdered By: Aleksey Clemente on 05-20-2025 Epithelial cells.squamous LM.HPF (Urine sed) [#/Area] 3-4 [HPF] High 0-2 [facility] Erythrocyte distribution wid th [Ratio] by Automated countOrdered By: Aleksey Clemente on 05-20-2025 Erythrocyte distribution width (RBC) [Ratio] 14.5 % Normal 11.9-15.3 [facility] Comment on above: Performed By: #### D IFF CBC, BMP #### [facility] [address] Erythrocytes [#/area] in Uri ne sediment by Microscopy high power fieldOrdered By: Aleksey Clemente on 05-20-2025 RBC LM.HPF (Urine sed) [#/Area] 20-49 [HPF] High 0-4 [facility] Erythrocytes [#/volume] in B lood by Automated countOrdered By: Aleksey Clemente on 05-20-2025 RBC (Bld) [#/Vol] 3.89 10*6/uL Normal 3.60-5.00 [facility] Comment on above: Performed By: #### D IFF CBC, BMP #### [address] Glomerular filtration rate [ Volume Rate/Area] in Serum, Plasma or Blood by CreatinineOrdered By: Aleksey Clemente on 05-20-2025 Glomerular filtration rate [Volume Rate/Area] in Serum, Plasma or Blood by Creatinine 11.986 mL/Min [facility] Glucose Poct Glucometerson 0 05-20-2025 Glucose [Mass/Vol] 160 mg/dL Normal [facility] Comment on above: Result Comment: [facility] Glucose Reference Range is dependent on time and content of last meal. Glucose of more than 200 mg/dL in a nonstressed, ambulatory subject supports the diagnosis of Diabetes Mellitus. PERFORMED BY: [place] [address] PATHOLOGIST POWER TONG OPERATOR ARABELLA ALEXANDER M.D. Performed By: #### G DIANE #### Point of Care testing , Glucose [Mass/volume] in Ser um or PlasmaOrdered By: Aleksey Clemente on 05-20-2025 Glucose [Mass/Vol] 256 mg/dL High 70-100 [facility] Comment on above: ADA recommended refe rence rangeRandom Glucose Reference Range is dependent on time and content of last meal. Glucose of more than 200 mg/dL in a nonstressed, ambulatory subject supports the diagnosis of Diabetes Mellitus. Result Comment: [place] [facility] Glucose Reference Range is dependent on time and content of last meal. Glucose of more than 200 mg/dL in a nonstressed, ambulatory subject supports the diagnosis of Diabetes Mellitus. ADA recommended reference range Performed By: #### D IFF CBC, BMP #### [address] Hematocrit [Volume Fraction] of Blood by Automated countOrdered By: Aleksey Clemente on 05-20-2025 Hematocrit (Bld) [Volume fraction] 30.9 % Low 34.0-46.4 [facility] Comment on above: Performed By: #### D IFF CBC, BMP #### [address] Hemoglobin [Mass/volume] in BloodOrdered By: Aleksey Clemente on 05-20-2025 Hemoglobin (Bld) [Mass/Vol] 10.1 g/dL Low 11.8-15.4 [facility] Comment on above: Performed By: #### D IFF CBC, BMP #### [facility] [address] [place] [id number] [facility] Hepatic Panelon 05-20-2025 Albumin [Mass/Vol] 3.5 g/dL Normal 3.5-5.[address] [facility] Comment on above: Performed By: #### D IFF CBC, BMP #### [address] Bilirubin,Indirect 0.1 mg/dL Normal [facility] Comment on above: Performed By: #### D IFF CBC, BMP #### [facility] [address] Bilirubin.indirect [Mass/Vol] 0.10 mg/dL Normal 0.03-0.18 [facility] Comment on above: Performed By: #### D IFF CBC, BMP #### [facility] [address] INR in Platelet poor plasma by Coagulation assayOrdered By: Aleksey Clemente on 05-20-2025 INR Coag (PPP) [Relative time] 1.0 {INR} Normal [facility] Comment on above: INR Therapeutic Rang e [...] heart valves: 3 - 4.5 PERFORMED BY: [place] [address] PATHOLOGIST POWER TONG OPERATOR ARABELLA ALEXANDER M.D. Performed By: #### D IFF CBC, BMP #### [place] [address] [place] Ketones [Presence] in Urine by Test stripOrdered By: Aleksey Clemente on 05-20-2025 Ketones Ql (U) Negative Normal Negative [facility] Comment on above: Order Comment: Name Collection Type:: Clean-Voided Midstream Performed By: #### D IFF CBC, BMP #### [place] [address] [place] Leukocyte clumps [Presence] in Urine sediment by Light microscopyOrdered By: Aleksey Clemente on 05-20-2025 Leukocyte clumps LM Ql (Urine sed) Many [LPF] High None Seen [facility] Leukocyte esterase [Presence ] in Urine by Test stripOrdered By: Aleksey Clemente on 05-20-2025 Leukocyte esterase Test strip Ql (U) 4+ Normal Negative [facility] Comment on above: Order Comment: Name Collection Type:: Clean-Voided Midstream Performed By: #### D IFF CBC, BMP #### [facility] [address] [place] [address] [place] Leukocytes [#/area] in Urine sediment by Microscopy high power fieldOrdered By: Aleksey Clemente on 05-20-2025 WBC LM.HPF (Urine sed) [#/Area] Innumerable [HPF] High 0-4 [facility] Leukocytes [#/volume] correc madhavi for nucleated erythrocytes in Blood by Automated counOrdered By: Aleksey Clemente on 05-20-2025 WBC corrected for nucl RBC Auto (Bld) [#/Vol] 8.7 10*3/uL 3.8-11.6 [facility] Leukocytes [#/volume] in Blo od by Automated countOrdered By: Aleksey Clemente on 05-20-2025 WBC (Bld) [#/Vol] 8.7 10*3/uL Normal 3.8-11.6 [facility] Comment on above: Performed By: #### D IFF CBC, BMP #### [facility] [address] [place] [address] [place] Lymphocytes [#/volume] in Bl ood by Automated countOrdered By: Aleksey Clemente on 05-20-2025 Lymphocytes (Bld) [#/Vol] 2.2 10*3/uL Normal 1.00-4.8 [facility] Comment on above: Performed By: #### D IFF CBC, BMP #### [facility] [address] [place] [address] [place] Lymphocytes/100 leukocytes i n Blood by Automated countOrdered By: Aleksey Clemente on 05-20-2025 Lymphocytes/100 WBC (Bld) 25.5 % Normal . [facility] Comment on above: Performed By: #### D IFF CBC, BMP #### [facility] [address] MCH [Entitic mass] by Automa madhavi countOrdered By: Aleksey Clemente on 05-20-2025 MCH (RBC) [Entitic mass] 25.9 pg Normal 24.7-34.3 [facility] Comment on above: Performed By: #### D IFF CBC, BMP #### [facility] [address] MCHC Auto (RBC) [Mass/Vol]Or dered By: Aleksey Clemente on 05-20-2025 MCHC (RBC) [Mass/Vol] 32.6 g/dL 32.0-35.0 [facility] MCV [Entitic volume] by Auto mated countOrdered By: Aleksey Clemente on 05-20-2025 MCV (RBC) [Entitic vol] 79.4 fL Low 80-100 [facility] Comment on above: Performed By: #### D IFF CBC, BMP #### [address] Monocyte distribution width [Entitic volume] in Blood by AutomatedOrdered By: Aleksey Clemente on 05-20-2025 Monocyte distribution width Auto (Bld) [Entitic vol] 20.19 % High 0.00-20.00 [facility] Comment on above: For adults in ED, MD W > 20.0 may be associated with a higher risk of sepsis during the first 12 hrs of hospital admission Monocytes [#/volume] in Bloo d by Automated countOrdered By: Aleksey Clemente on 05-20-2025 Monocytes (Bld) [#/Vol] 0.5 10*3/uL Normal 0.0-0.8 [facility] Comment on above: Performed By: #### D IFF CBC, BMP #### [facility] [address] [place] [address] [place] Monocytes/100 leukocytes in Blood by Automated countOrdered By: Aleksey Clemente on 05-20-2025 Monocytes/100 WBC (Bld) 5.4 % Normal . [facility] Comment on above: Performed By: #### D IFF CBC, BMP #### [address] [address] [place] Neutrophils [#/volume] in Bl ood by Automated countOrdered By: Aleksey Clemente on 05-20-2025 Neutrophils (Bld) [#/Vol] 5.8 10*3/uL Normal 1.8-7.7 [facility] Comment on above: Performed By: #### D IFF CBC, BMP #### [facility] [address] [place] [address] [place] Neutrophils/100 leukocytes i n Blood by Automated countOrdered By: Aleksey Clemente on 05-20-2025 Neutrophils/100 WBC (Bld) 67.0 % Normal . [facility] Comment on above: Performed By: #### D IFF CBC, BMP #### [facility] [address] Nitrite Test strip Ql (U)Ord ered By: Aleksey Clemente on 05-20-2025 Nitrite Ql (U) Negative Negative [facility] No Panel InformationOrdered By: Aleksey Clemente on 05-20-2025 Pharmacy Creatinine Clearance (Chem 11.11 [facility] Nucleated erythrocytes [Pres ence] in Blood by Automated countOrdered By: Aleksey Clemente on 05-20-2025 Nucleated RBC Auto Ql (Bld) 0.0 /100{WBC} 0-0.5 [facility] Platelet mean volume [Entiti c volume] in Blood by Automated countOrdered By: Aleksey Clemente on 05-20-2025 Platelet mean volume (Bld) [Entitic vol] 8.7 fL Normal 6.3-10.7 [facility] Comment on above: Performed By: #### D IFF CBC, BMP #### [facility] [address] [place] [address] [place] Platelets [#/volume] in Bloo d by Automated countOrdered By: Aleksey Clemente on 05-20-2025 Platelets (Bld) [#/Vol] 349 10*3/uL Normal 150-450 [facility] Comment on above: Performed By: #### D IFF CBC, BMP #### [facility] [address] [place] [address] [place] Potassium [Moles/volume] in Serum or PlasmaOrdered By: Aleksey Clemente on 05-20-2025 Potassium [Moles/Vol] 4.4 mmol/L Normal 3.5-5.1 [facility] Comment on above: Performed By: #### D IFF CBC, BMP #### [facility] [address] [place] [address] [place] Protein [Mass/volume] in Ser um or PlasmaOrdered By: Aleksey Clemente on 05-20-2025 Protein [Mass/Vol] 8.3 g/dL Normal 6.4-8.9 [facility] Comment on above: Performed By: #### D IFF CBC, BMP #### [facility] [address] [place] [id number] [place] Protein [Mass/volume] in Uri ne by Test stripOrdered By: Aleksey Clemente on 05-20-2025 Protein (U) [Mass/Vol] 100 mg/dL Normal Negative [facility] Comment on above: Order Comment: Name Collection Type:: Clean-Voided Midstream Performed By: #### D IFF CBC, BMP #### [facility] [address] [place] [address] [facility] Prothrombin time (PT)Ordered By: Aleksey Clemente on 05-20-2025 PT Coag (PPP) [Time] 11.4 s Normal 9.0-12.9 [facility] Comment on above: A hematocrit value g reater than 55% may lead to inaccurate results in coagulation testing. Patients having hematocrit values >55% require a special collection tube for coagulation studies. Please contact the laboratory at [phone] for redraw instructions. Result Comment: A he matocrit value greater than 55% may lead to inaccurate results in coagulation testing. Patients having hematocrit values >55% require a special collection tube for coagulation studies. Please contact the laboratory at [phone] for redraw instructions. Performed By: #### D IFF CBC, BMP #### [facility] [address] [place] [address] [place] RBC Test strip (U) [#/Vol]Or dered By: Aleksey Clemente on 05-20-2025 RBC (U) [#/Vol] 3+ High Negative [facility] Serum globulin measurement b y calculation (mass/volume)Ordered By: Aleksey Clemente on 05-20-2025 Globulin (S) [Mass/Vol] 4.8 g/dL [facility] Comment on above: Performed By: #### D IFF CBC, BMP #### [facility] [address] Serum or plasma albumin/glob ulin mass ratioOrdered By: Aleksey Clemente on 05-20-2025 Albumin/Globulin [Mass ratio] 0.7 {ratio} [facility] Comment on above: Performed By: #### D IFF CBC, BMP #### [address] Serum or plasma anion gap de terminationOrdered By: Aleksey Clemente on 05-20-2025 Anion gap [Moles/Vol] 13.2 mmol/L Normal 6.0-15.0 [facility] Comment on above: Performed By: #### D IFF CBC, BMP #### [address] Serum or plasma non-glucuron idated bilirubin measurement (mass/volume)Ordered By: Aleksey Clemente on 05-20-2025 Bilirubin.indirect [Mass/Vol] 0.1 mg/dL [facility] Sodium [Moles/volume] in Ser um or PlasmaOrdered By: Aleksey Clemente on 05-20-2025 Sodium [Moles/Vol] 131 mmol/L Low 136-145 [facility] Comment on above: Performed By: #### D IFF CBC, BMP #### [address] Specific gravity Test strip (U) [Rel density]Ordered By: Aleksey Clemente on 05-20-2025 Specific gravity (U) [Rel density] 1.020 1.001-1.030 [facility] Troponin I High Sensitivityo n 05-20-2025 Troponin I High Sensitivity 8 Normal 0-15 [facility] Comment on above: Result Comment: The Troponin units of report have been changed to meet the Chest Pain Accreditation requirement, element EC5.M1l2. Troponin units are changed from pg/ml to ng/L. Also, the decimal is removed and results are in whole numbers. PERFORMED BY: [place] [address] PATHOLOGIST POWER TONG OPERATOR ARABELLA ALEXANDER M.D. Performed By: #### D IFF CBC, BMP #### [address] Troponin I.cardiac [Mass/vol ume] in Serum or Plasma by Detection limit <= 0.01 ng/mLOrdered By: Aleksey Clemente on 05-20-2025 Troponin I.cardiac DL <= 0.01 ng/mL [Mass/Vol] 8 ng/L 0-15 [facility] Comment on above: The Troponin units o f report have been changed to meet the Chest Pain Accreditation requirement, element EC5.M1l2. Troponin units are changed from pg/ml to ng/L. Also, the decimal is removed and results are in whole numbers. Urea nitrogen [Mass/volume] in Serum or PlasmaOrdered By: Aleksey Clemente on 05-20-2025 Urea nitrogen [Mass/Vol] 55 mg/dL High 7-25 [facility] Comment on above: Performed By: #### D IFF CBC, BMP #### [address] Urine Cultureon 05-20-2025 Bacteria identified Cx Nom (U) ORGANISM: Klebsiella pneumoniae (O:KLEPNE) [place] Count >100,000 ORGANISM: Strep agalactiae - (group b) (O:STRAGA) [place] Count >100,000 Aerobic LOCO Charge (NMIC56) SUSCEPTIBILITY ORGANISM: O:KLEPNE ANTIBIOTIC INTERPRETATION LOCO Amikacin S <16 Amoxacillin/K Clavulanate S <8 Ampicillin/Sulbactam S 88/4 Aztreonam S <4 Cefazolin S <2 Cefepime S <2 Ceftazidime S <1 Ceftazidime/Avibactam S <4 Ceftolozane/Tazobactam S <2 Ceftriaxone S <1 Cefuroxime S <4 Ciprofloxacin S <0.25 Ertapenem S <0.5 Gentamicin S <2 Levofloxacin S <0.5 Meropenem S <1 Meropenem/Vaborbactam S <2 Nitrofurantoin I 64 Piperacillin/Tazobactam S <8 Tetracycline S <4 Tigecycline [...] RESISTANT TO ALL B-LACTAM DRUGS. PERFORMED BY: [place] [address] PATHOLOGIST POWER TONG OPERATOR ARABELLA ALEXANDER M.D. Normal [facility] Comment on above: Performed By: #### D IFF CBC, BMP #### [facility] [address] [place] [address] Urine appearance determinati onOrdered By: Aleksey Clemente on 05-20-2025 Appearance (U) Cloudy Critically abnormal Clear [facility] Comment on above: Order Comment: Name Collection Type:: Clean-Voided Midstream Performed By: #### D IFF CBC, BMP #### [facility] [address] [place] [address] Urine glucose measurement by automated test strip (mass/volume)Ordered By: Aleksey Clemente on 05-20-2025 Glucose Auto test strip (U) [Mass/Vol] 150 mg/dL High Normal [facility] Urobilinogen Test strip (U) [Mass/Vol]Ordered By: Aleksey Clemente on 05-20-2025 Urobilinogen (U) [Mass/Vol] Normal mg/dL Normal [facility] X-ray reportOrdered By: Homar Ruiz on 05-20-2025 Study report [facility] Main [address] [address] XRay Report Signed Patient: Aislinn Wheeler MR#: [id number] : 1960 Acct:[id number] Age/Sex: 65 / F ADM Date: Loc: ER Room: Type: [facility] ER Attending Dr: Copies to: Aleksey Clemente DO~ Ordering Provider: Aleksey Clemente DO Date of Service: 05/20/25 XR/XR chest 2V*: Chest Pain Plain film chest 2 view HISTORY: Chest tightness. Cough COMPARISON: 11/23/2024 FINDINGS: SUPPORT DEVICES: None POSTSURGICAL CHANGES: None HEART: Cardiomegaly PULMONARY HONORIO: Within normal limits MEDIASTINUM: Unremarkable LUNGS AND PLEURA: No acute lung process, pleural effusion or pneumothorax identified. BONY STRUCTURES: Intact ADDITIONAL FINDINGS None XR/XR chest 2V* IMPRESSION: No acute process. Similar cardiomegaly Impression dictated by: Jori Ruiz M.D. 05/20/2025 4:49 PM Dictation Location: [facility]20 Transcribed By: [facility] 05/20/251648 Dictated By: Jori Ruiz DO 05/20/251644 Signed By: 05/20/25 164 [facility] XR chest 2V*on 05-20-2025 XR chest 2V* [address] [address] XRay Report Signed Patient: Aislinn Wheeler MR#: [id number] 01 : 1960 Acct:[id number] Age/Sex: 65 / F ADM Date: 05/20/25 Loc: ER Room: Type: [facility] ER Attending Dr: Copies to: Aleksey Clemente DO Ordering Provider: Aleksey Clemente DO Date of Service: 05/20/25 XR/XR chest 2V*: Chest Pain Plain film chest 2 view HISTORY: Chest tightness. Cough COMPARISON: 11/23/2024 FINDINGS: SUPPORT DEVICES: None POSTSURGICAL CHANGES: None HEART: Cardiomegaly PULMONARY HONORIO: Within normal limits MEDIASTINUM: Unremarkable LUNGS AND PLEURA: No acute lung process, pleural effusion or pneumothorax identified. BONY STRUCTURES: Intact ADDITIONAL FINDINGS None XR/XR chest 2V* IMPRESSION: No acute process. Similar cardiomegaly Impression dictated by: Jori Ruiz M.D. 05/20/2025 4:49 PM Dictation Location: [place] [address] Transcribed By: [facility] 05/20/251648 Dictated By: Jori Ruiz DO 05/20/251644 Signed By: 05/20/251648 Normal [facility] pH of Urine by Test stripOrd ered By: Aleksey Clemente on 05-20-2025 pH (U) 6.0 [pH] Normal 5.0-9.0 [facility] Comment on above: Order Comment: Name Collection Type:: Clean-Voided Midstream Performed By: #### D IFF CBC, BMP #### [facility] [address] [place] [address] Erythrocyte distribution wid th Auto (RBC) [Ratio]Ordered By: Eli Sprague on 05-05-2025 Erythrocyte distribution width (RBC) [Ratio] 15.0 % 11.0-15.0 [facility] Glomerular filtration rate ( GFR) estimation in non- AmericanOrdered By: Eli Sprague on 05-05-2025 GFR/1.73 sq M.predicted among non-blacks MDRD (S/P/Bld) [Vol rate/Area] 14 mL/min/{1.73_m2} Low >=60 mL/min/1.73 m 2 [facility] Hematocrit Auto (Bld) [Volum e fraction]Ordered By: Eli Sprague on 05-05-2025 Hematocrit (Bld) [Volume fraction] 34.2 % Low 36.0-48.0 [facility] Hemoglobin [Mass/volume] in BloodOrdered By: Eli Sprague on 05-05-2025 Hemoglobin (Bld) [Mass/Vol] 11.1 g/dL Low 12.0-16.0 [facility] Iron binding capacity [Mass/ volume] in Serum or PlasmaOrdered By: Eli Sprague on 05-05-2025 Iron binding capacity [Mass/Vol] 287.0 ug/dL 250.0-450.0 [facility] Iron saturation [Mass Fracti on] in Serum or PlasmaOrdered By: Eli Sprague on 05-05-2025 Iron saturation [Mass fraction] 10.8 % [facility] - Chemistry and C hemistry - challengeOrdered By: Eli Sprague on 05-05-2025 Albumin [Mass/Vol] 2.9 g/dL Low 3.4-5.0 [facility] Calcium [Mass/Vol] 8.9 mg/dL 8.5-10.1 [facility] Chloride [Moles/Vol] 103 mmol/L 98-107 [facility] CO2 [Moles/Vol] 20.2 mmol/L Low 21.0-32.0 [facility] Cobalamin (Vitamin B12) [Mass/Vol] 342 pg/mL 232-1245 [facility] Comment on above: Performed at: [address] [id number] Director: Chris Luna PhD, Phone: [phone] Creatinine [Mass/Vol] 3.26 mg/dL High 0.55-1.02 [facility] Ferritin [Mass/Vol] 333.0 ng/mL High 8.0-252.0 [facility] GFR/1.73 sq M.predicted MDRD (S/P/Bld) [Vol rate/Area] 17 mL/min/{1.73_m2} Low >=60 mL/min/1.73 m 2 [facility] Glucose [Mass/Vol] 481 mg/dL High 74-106 [facility] Iron [Mass/Vol] 31.0 ug/dL Low 50.0-170.0 [facility] Magnesium [Mass/Vol] 1.8 mg/dL 1.8-2.4 [facility] Potassium [Moles/Vol] 5.1 mmol/L 3.5-5.1 [facility] Sodium [Moles/Vol] 134 mmol/L Low 136-145 [facility] Urate [Mass/Vol] 7.0 mg/dL High 2.6-6.0 [facility] Urea nitrogen [Mass/Vol] 49.0 mg/dL High 7.0-18.0 [facility] Urea nitrogen/Creatinine [Mass ratio] 15.0 mg/mg [facility] - UrinalysisOrder ed By: Eli Sprague on 05-05-2025 Protein (U) [Mass/Vol] 196.6 mg/dL High <=11.9 [facility] Leukocytes [#/volume] correc madhavi for nucleated erythrocytes in Blood by Automated counOrdered By: Eli Sprague on 05-05-2025 WBC corrected for nucl RBC Auto (Bld) [#/Vol] 8.6 10 3/uL 4.0-11.0 [facility] MCH Auto (RBC) [Entitic mass ]Ordered By: Eli Sprague on 05-05-2025 MCH (RBC) [Entitic mass] 26.2 pg Low 26.7-34.0 [facility] MCHC Auto (RBC) [Mass/Vol]Or dered By: Eli Sprague on 05-05-2025 MCHC (RBC) [Mass/Vol] 32.5 g/dL 29.9-35.2 [facility] MCV Auto (RBC) [Entitic vol] Ordered By: Eli Sprague on 05-05-2025 MCV (RBC) [Entitic vol] 80.9 fL Low 81.0-99.0 [facility] No Panel InformationOrdered By: Eli Sprague on 05-05-2025 25-Hydroxy Vitamin D Total 8.0 ng/mL [facility] Comment on above: <20 ng/mL Vit D defi cient20-<30 ng/mL Vit D [id number] ng/mL Vit D sufficient>100 ng/mL Potential Toxicity Folate 12.30 ng/mL 8.60-58.90 [facility] Parathyroid Hormone (Intact) 209 pg/mL Abnormal 15 [facility] Comment on above: Performed at: - [address] [id number] Director: Chris Luna PhD, Phone: [phone] Phosphorus Level 4.3 mg/dL 2.6-4.7 [facility] Urine Random Creatinine 34.92 mg/dL 20.00-300.0 0 [facility] Platelet mean volume Auto (B ld) [Entitic vol]Ordered By: Eli Sprague on 05-05-2025 Platelet mean volume (Bld) [Entitic vol] 11.2 fL 9.5-13.5 [facility] Platelets Auto (Bld) [#/Vol] Ordered By: Eli Sprague on 05-05-2025 Platelets (Bld) [#/Vol] 241 10 3/uL 150-450 [facility] RBC Auto (Bld) [#/Vol]Ordere d By: Eli Sprague on 05-05-2025 RBC (Bld) [#/Vol] 4.23 10 6/uL 4.20-5.40 [facility] Serum or plasma anion gap de terminationOrdered By: Eli Sprague on 05-05-2025 Anion gap [Moles/Vol] 15.9 mmol/L [facility] Urine protein/creatinine rat ioOrdered By: Eli Sprague on 05-05-2025 Protein/Creatinine (U) [Ratio] 5.63 [facility] Erythrocyte distribution wid th Auto (RBC) [Ratio]Ordered By: Eli Sprague on 03-25-2025 Erythrocyte distribution width (RBC) [Ratio] 13.8 % 11.0-15.0 [facility] Glomerular filtration rate ( GFR) estimation in non- AmericanOrdered By: Eli Sprague on 03-25-2025 GFR/1.73 sq M.predicted among non-blacks MDRD (S/P/Bld) [Vol rate/Area] 16 mL/min/{1.73_m2} Low >=60 mL/min/1.73 m 2 [facility] Hematocrit Auto (Bld) [Volum e fraction]Ordered By: Eli Sprague on 03-25-2025 Hematocrit (Bld) [Volume fraction] 31.1 % Low 36.0-48.0 [facility] Hemoglobin [Mass/volume] in BloodOrdered By: Eli Sprague on 03-25-2025 Hemoglobin (Bld) [Mass/Vol] 10.3 g/dL Low 12.0-16.0 [facility] Iron binding capacity [Mass/ volume] in Serum or PlasmaOrdered By: Eli Sprague on 03-25-2025 Iron binding capacity [Mass/Vol] 262.0 ug/dL 250.0-450.0 [facility] Iron saturation [Mass Fracti on] in Serum or PlasmaOrdered By: Eli Sprague on 03-25-2025 Iron saturation [Mass fraction] 23.3 % [facility] - Chemistry and C hemistry - challengeOrdered By: Eli Sprague on 03-25-2025 Albumin [Mass/Vol] 2.5 g/dL Low 3.4-5.0 [facility] Calcium [Mass/Vol] 9.1 mg/dL 8.5-10.1 [facility] Chloride [Moles/Vol] 99 mmol/L 98-107 [facility] CO2 [Moles/Vol] 23.0 mmol/L 21.0-32.0 [facility] Cobalamin (Vitamin B12) [Mass/Vol] 385 pg/mL 232-1245 [facility] Comment on above: Performed at: [facility] [employer] [place] [id number] Director: Chris Luna PhD, Phone: [phone] Creatinine [Mass/Vol] 2.86 mg/dL High 0.55-1.02 [facility] Ferritin [Mass/Vol] 458.0 ng/mL High 8.0-252.0 [facility] GFR/1.73 sq M.predicted MDRD (S/P/Bld) [Vol rate/Area] 20 mL/min/{1.73_m2} Low >=60 mL/min/1.73 m 2 [facility] Glucose [Mass/Vol] 499 mg/dL High 74-106 [facility] Iron [Mass/Vol] 61.0 ug/dL 50.0-170.0 [facility] Potassium [Moles/Vol] 5.6 mmol/L High 3.5-5.1 [facility] Sodium [Moles/Vol] 131 mmol/L Low 136-145 [facility] Urea nitrogen [Mass/Vol] 44.0 mg/dL High 7.0-18.0 [facility] Urea nitrogen/Creatinine [Mass ratio] 15.4 mg/mg [facility] Leukocytes [#/volume] correc madhavi for nucleated erythrocytes in Blood by Automated counOrdered By: Eli Sprague on 03-25-2025 WBC corrected for nucl RBC Auto (Bld) [#/Vol] 7.9 10 3/uL 4.0-11.0 [facility] MCH Auto (RBC) [Entitic mass ]Ordered By: Eli Sprague on 03-25-2025 MCH (RBC) [Entitic mass] 25.8 pg Low 26.7-34.0 [facility] MCHC Auto (RBC) [Mass/Vol]Or dered By: Eli Sprague on 03-25-2025 MCHC (RBC) [Mass/Vol] 33.1 g/dL 29.9-35.2 [facility] MCV Auto (RBC) [Entitic vol] Ordered By: Eli Sprague on 03-25-2025 MCV (RBC) [Entitic vol] 77.8 fL Low 81.0-99.0 [facility] No Panel InformationOrdered By: Eli Sprague on 03-25-2025 Folate 14.30 ng/mL 8.60-58.90 [facility] Phosphorus Level 4.8 mg/dL High 2.6-4.7 [facility] Platelet mean volume Auto (B ld) [Entitic vol]Ordered By: Eli Sprague on 03-25-2025 Platelet mean volume (Bld) [Entitic vol] 10.6 fL 9.5-13.5 [facility] Platelets Auto (Bld) [#/Vol] Ordered By: Eli Sprague on 03-25-2025 Platelets (Bld) [#/Vol] 261 10 3/uL 150-450 [facility] RBC Auto (Bld) [#/Vol]Ordere d By: Eli Sprague on 03-25-2025 RBC (Bld) [#/Vol] 4.00 10 6/uL Low 4.20-5.40 [facility] Serum or plasma anion gap de terminationOrdered By: Eli Sprague on 03-25-2025 Anion gap [Moles/Vol] 14.6 mmol/L [facility] CONTROLLED SUBSTANCE MONITOR Matt DELAROSA 03-12-2025 CONTROL SUBSTANCE PANEL, URINE SEE COMMENTS Abnormal [facility] Comment on above: Result Comment: Test Result Flag Unit RefValue ------ Controlled Substance Monitoring, U List Patient's Current HYDROCODONE Medications ADDITIONAL INFORMATION Accuracy and completeness of declared medications on reports solely dependent on information submitted by client. Creatinine, U 58.1 mg/dL Specific [place] 1.012 pH 5.6 Oxidants Negative Cutoff: 200 [...] Not Detected ng/mL Cutoff: 25 Tylenol 3 Rutrilp-2-yyvz- Not Detected ng/mL Cutoff: 100 glucuronide Metabolite of codeine Morphine Not Detected ng/mL Cutoff: 25 Marium Leon, MS Contin; Also a minor metabolite (10%) of codeine and can be seen in low concentrations (<2,000 ng/mL) with poppy seed ingestion. Sxlcrwrl-1-bbcz- Not Detected ng/mL Cutoff: 100 glucuronide Metabolite of morphine 6-monoacetylmorphine Not Detected ng/mL Cutoff: 25 Metabolite of heroin Hydrocodone Present A ng/mL Cutoff: 25 Lortab, [place], Vicodin; Also a very minor metabolite of codeine and impurity (<1%) of oxycodone. Norhydrocodone Present A ng/mL Cutoff: 25 Metabolite of hydrocodone Dihydrocodeine Present A ng/mL Cutoff: 25 Metabolite of hydrocodone Hydromorphone Not Detected ng/mL Cutoff: 25 Dilaudid, Exalgo; Also a metabolite of hydrocodone and a minor (<5%) metabolite of morphine. Hgduqgblfqgls-0-ulkj- Not Detected ng/mL Cutoff: 100 glucuronide Metabolite of hydromorphone Oxycodone Not Detected ng/mL Cutoff: 25 Endocet, Percocet, Oxycontin Noroxycodone Not Detected ng/mL Cutoff: 25 Metabolite of oxycodone Oxymorphone Not Detected ng/mL Cutoff: 25 Numorphan, Opana; Also a metabolite of oxycodone. Ybuqykikhzm-6-kscf- Not Detected ng/mL Cutoff: 100 glucuronide Metabolite [...] Naloxone Not Detected ng/mL Cutoff: 25 Narcan Nfzfdzvm-3-ogur- Not Detected ng/mL Cutoff: 100 glucuronide Metabolite [...] its performance characteristics determined by [facility] in a manner consistent with [...] included)... Performed By: #### C SMPUS #### [facility] C-sam (SDL) [address] [place] [address] VIR GABAPENTIN, URINEon 03-12-20 25 GABAPENTIN,URINE Negative Normal [facility] Comment on above: Result Comment: Test Performed by: JRKICKZ. [address] [place] [id number] Performed By: #### F KASSIDY #### [facility] C-sam (SDL) [address] [place] [address] VIR [place] [facility] ORDERon 025 TEST RESULT SEE COMMENTS Normal [facility] Comment on above: Result Comment: Test Result Flag Unit RefValue ------ Pregabalin, urine SEE COMMENTS Test Result Flag Units Reference Range Pregabalin, UR Pregabalin 26.2 ug/mL This test was developed and its performance characteristics determined by [facility]. It has not been cleared or approved by the Food and Drug Administration. Test Performed by: JRKICKZ. [address] [place] [id number] Performed By: #### M GO #### [facility]ORATORIES (SDL) [address] [place] [address] VIR Pregabalin, Urineon 03-12-20 25 Laboratory comment [place] (Report) Sent to Reference Laboratory. [facility] UNLISTED LAB TESTon 03-12-20 LOOK Sent to Reference Laboratory. Normal [facility] Comment on above: Performed By: #### L OOK #### [facility] ([facility]) [address] [place] [address] VIR BEDSIDE GLUCOSEon 02-28-2025 Glucose [Mass/Vol] 103 mg/dL High 65-99 [facility] Comment on above: Performed By: #### B EDG #### [facility] ([facility]) [address] [facility] [place] [address] VIR CONTROLLED SUBSTANCE MONITOR ING, Uon 02-28-2025 CONTROLLED SUBSTANCE MONITORING, U CSMPUS CONTROLLED SUBSTANCE MONITORING, U Cancelled [facility] Comment on above: Order Comment: RECOL LECT - 1 FULL URINE CUP, SPECIMEN NEEDS TO BE LABELLED WITH TWO PATIENT IDENTIFIERS GABAPENTIN, URINEon 02-29-20 25 GABAPENTIN, URINE FGABA GABAPENTIN, UR INE Cancelled [facility] Comment on above: Order Comment: RECOL LECT - 1 FULL URINE CUP, SPECIMEN NEEDS TO BE LABELLED WITH TWO PATIENT IDENTIFIERS UNLISTED LAB TESTon 02-29-20 UNLISTED LAB TEST LOOK UNLISTED LAB TE ST Cancelled Normal [facility] Comment on above: Order Comment: RECOL LECT - 1 FULL URINE CUP, SPECIMEN NEEDS TO BE LABELLED WITH TWO PATIENT IDENTIFIERS Urine Cultureon 02-11-2025 Bacteria identified Cx Nom (U) ORGANISM: Escherichia coli (O:ESCCOL) [place] Count >100,000 Aerobic LOCO Charge (NMIC56) SUSCEPTIBILITY [...] RESISTANT TO ALL B-LACTAM DRUGS. PERFORMED BY: [facility] [address] [place] [address] PATHOLOGIST POWER TONG OPERATOR ARABELLA ALEXANDER M.D. Normal [facility] Comment on above: Performed By: #### G LULS #### Point of Care testing , Urine cultureOrdered By: Tha Garcia on 02-11-2025 Bacteria identified Cx Nom (U) Escherichia coli Abnormal [facility] ALL CBC WITH AUTO DIFFon BASOPHILS ABSOLUTE AUTO 0.1 [facility] Basophils/100 WBC (Bld) 0.6 % 0.2 - 2.0 % [facility] Eosinophils/100 WBC (Bld) 0.8 % Low 0.9 - 7.0 % [facility] Erythrocyte distribution width (RBC) [Ratio] 13.6 % 11.0 - 15.0 % [facility] Hematocrit (Bld) [Volume fraction] 30.9 % Low 36.0 - 48.0 % [facility] Hemoglobin (Bld) [Mass/Vol] 9.8 g/dL Low 12.0 - 16.0 g/dL [facility] IMMATURE GRANULOCYTES ABS AUTO 0.15 High [facility] Immature granulocytes/100 WBC (Bld) 1.7 % High 0.0 - 0.5 % [facility] Interpretation and review of laboratory results Abnormal [facility] LYMPHOCYTES ABSOLUTE AUTO 1.6 [facility] Lymphocytes/100 WBC (Bld) 17.5 % Low 20.5 - 60.0 % [facility] MCH (RBC) [Entitic mass] 25.3 pg Low 26.7 - 34.0 pg [facility] MCHC (RBC) [Mass/Vol] 31.7 g/dL 29.9 - 35.2 g/dL [facility] MCV (RBC) [Entitic vol] 79.8 fL Low 81.0 - 99.0 fL [facility] MONOCYTES ABSOLUTE AUTO 0.5 [facility] Monocytes/100 WBC (Bld) 5.9 % 1.7 - 12.0 % [facility] NEUTROPHILS ABSOLUTE AUTO 6.7 High [facility] Neutrophils/100 WBC (Bld) 73.5 % 43.0 - 75.0 % [facility] Platelet mean volume (Bld) [Entitic vol] 11.1 fL 9.5 - 13.5 fL [facility] TBH EO # 0.1 [facility] PLT 295 [facility] RBC 3.87 Low [facility] WBC 9.1 [facility] Urinalysis macro (dipstick) panel (U)on 01-27-2025 Bilirubin, UA Negative Negative - 4(70) +++ mg/dL [facility] Blood, UA Positive Negative - 50 Kenneth/mcL [facility] Comment on above: moderate Clarity, UA Cloudy [facility] Color, UA Light Yellow [facility] Glucose, UA Positive Negative - 2000(110) ++++ mg/dL [facility] Comment on above: 250 Interpretation and review of laboratory results Abnormal [facility] Ketones, UA Negative Negative - 160(16) ++++ mg/dL [facility] Leukocytes, UA Trace Negative - 500+++ Yuan/mcL [facility] Nitrite, UA Negative Negative - Positive [facility] pH, UA 5.5 5 - 9 [facility] Protein, UA Positive Negative - 2000(20) ++++ mg/dL [facility] Comment on above: >=300 Spec Grav, UA 1.025 1 - 1.03 [facility] Urobilinogen, UA 0.2 0.2 - 12 mg/dL [facility] Albumin [Mass/volume] in Ser um or Plasma by Bromocresol green (BCG) dye binding methoOrdered By: Tyler Valencia on 11-26-2024 Albumin BCG dye [Mass/Vol] Albumin [Mass/volume] in Serum or Plasma by Bromocresol green (BCG) dye binding metho Low 3.5-5.7 [facility] Albumin BCG dye [Mass/Vol] 2.9 g/dL Low 3.5-5.7 [facility] Basophils Auto (Bld) [#/Vol] Ordered By: Demian Dorantes on 11-26-2024 Basophils (Bld) [#/Vol] Automated basophil count 0.0-0.2 [facility] Basophils [#/volume] in Bloo d by Automated countOrdered By: Demian Dorantes on 11-26-2024 Basophils (Bld) [#/Vol] 0.0 10*3/uL Normal 0.0-0.2 [facility] Comment on above: Result Comment: PERF ORMED BY: [facility] [address] [place] [address] PATHOLOGIST POWER TONG OPERATOR NICK MOHR M.D. Performed By: #### G LULS #### Point of Care testing , Basophils/100 WBC Auto (Bld) Ordered By: Demian Dorantes on 11-26-2024 Basophils/100 WBC (Bld) Automated basophil % . [facility] Basophils/100 leukocytes in Blood by Automated countOrdered By: Demian Dorantes on 11-26-2024 Basophils/100 WBC (Bld) 0.6 % Normal . [facility] Comment on above: Performed By: #### G DIANE #### Point of Care testing , Calcium [Mass/volume] in Ser um or PlasmaOrdered By: Tyler Valencia on 11-26-2024 Calcium [Mass/Vol] Calcium [Mass/volume ] in Serum or Plasma Low 8.6-10.3 [facility] Calcium [Mass/Vol] 8.2 mg/dL Low 8.6-10.3 [facility] Comment on above: Performed By: #### D IFF CBC, BMP #### [facility] [address] Capillary blood glucose zabrina urement by glucometer (mass/volume)Ordered By: Demian Dorantes on 11-26-2024 Glucose [Mass/Vol] 129 mg/dL Normal [facility] Comment on above: Random Glucose Refer ence Range is dependent on time and content of last meal. Glucose of more than 200 mg/dL in a nonstressed, ambulatory subject supports the diagnosis of Diabetes Mellitus. Result Comment: [place] Glucose Reference Range is dependent on time and content of last meal. Glucose of more than 200 mg/dL in a nonstressed, ambulatory subject supports the diagnosis of Diabetes Mellitus. PERFORMED BY: [address] [place] [address] PATHOLOGIST POWER TONG OPERATOR NICK MOHR M.D. Performed By: #### D IFF CBC, BMP #### [facility] [address] [place] [address] Carbon dioxide, total [Moles /volume] in Serum or PlasmaOrdered By: Tyler Valencia on 11-26-2024 CO2 [Moles/Vol] Carbon dioxide, tota l [Moles/volume] in Serum or Plasma 21.0-31.0 [facility] CO2 [Moles/Vol] 28.1 mmol/L Normal 21.0-31.0 [facility] Comment on above: Performed By: #### D IFF CBC, BMP #### [facility] [address] Chloride [Moles/volume] in S ryan or PlasmaOrdered By: Tyler Valencia on 11-26-2024 Chloride [Moles/Vol] Chloride [Moles/vol ume] in Serum or Plasma High 98-107 [facility] Chloride [Moles/Vol] 108 mmol/L High 98-107 [facility] Comment on above: Performed By: #### D IFF CBC, BMP #### [facility] [address] Complete Blood Count Auto Di ffon 11-26-2024 Mean Corpuscular HGB Conc 33.1 g/dL Normal 32.0-35.0 [facility] Comment on above: Performed By: #### G LULS #### Point of Care testing , NRBC% 0.2 /100{WBC} Normal 0-0.5 [facility] Comment on above: Performed By: #### G LUCARLOS MANUEL #### Point of Care testing , Creatinine [Mass/volume] in Serum or PlasmaOrdered By: Tyler Valencia on 11-26-2024 Creatinine [Mass/Vol] Creatinine [Mass/v olume] in Serum or Plasma High 0.60-1.20 [facility] Creatinine [Mass/Vol] 2.19 mg/dL High 0.60-1.20 [facility] Comment on above: Performed By: #### D IFF CBC, BMP #### [facility] [address] Eosinophils Auto (Bld) [#/Vo l]Ordered By: Demian Dorantes on 11-26-2024 Eosinophils (Bld) [#/Vol] Automated eosinophil count 0.0-0.45 [facility] Eosinophils [#/volume] in Bl ood by Automated countOrdered By: Demian Dorantes on 11-26-2024 Eosinophils (Bld) [#/Vol] 0.2 10*3/uL Normal 0.0-0.45 [facility] Comment on above: Performed By: #### G DIANE #### Point of Care testing , Eosinophils/100 WBC Auto (Bl d)Ordered By: Demian Dorantes on 11-26-2024 Eosinophils/100 WBC (Bld) Automated eosinophil % . [facility] Eosinophils/100 leukocytes i n Blood by Automated countOrdered By: Demian Dorantes on 11-26-2024 Eosinophils/100 WBC (Bld) 3.5 % Normal . [facility] Comment on above: Performed By: #### G DIANE #### Point of Care testing , Erythrocyte distribution wid th Auto (RBC) [Ratio]Ordered By: Demian Dorantes on 11-26-2024 Erythrocyte distribution width (RBC) [Ratio] Erythrocyte distribution width [Ratio] by Automated count 11.9-15.3 [facility] Erythrocyte distribution wid th [Ratio] by Automated countOrdered By: Demian Dorantes on 11-26-2024 Erythrocyte distribution width (RBC) [Ratio] 13.7 % Normal 11.9-15.3 [facility] Comment on above: Performed By: #### G LULS #### Point of Care testing , Erythrocytes [#/volume] in B lood by Automated countOrdered By: Demian Dorantes on 11-26-2024 RBC (Bld) [#/Vol] 3.70 10*6/uL Normal 3.60-5.00 [facility] Comment on above: Performed By: #### G DIANE #### Point of Care testing , Glucose Glucometer (BldC) [M ass/Vol]Ordered By: Demian Dorantes on 11-26-2024 Glucose [Mass/Vol] Capillary blood gluc ose measurement by glucometer (mass/volume) [facility] Comment on above: Random Glucose Refer ence Range is dependent on time and content of last meal. Glucose of more than 200 mg/dL in a nonstressed, ambulatory subject supports the diagnosis of Diabetes Mellitus. Glucose Poct Glucometerson 0 11-26-2024 Commemt1 Glu2: Cleaned Meter Normal [facility] Comment on above: Result Comment: PERF ORMED BY: [facility] [address] [place] [address] PATHOLOGIST POWER TONG OPERATOR NICK MOHR M.D. Performed By: #### G LULS #### Point of Care testing , Glucose [Mass/Vol] 134 mg/dL Normal [facility] Comment on above: Result Comment: [place] Glucose Reference Range is dependent on time and content of last meal. Glucose of more than 200 mg/dL in a nonstressed, ambulatory subject supports the diagnosis of Diabetes Mellitus. Performed By: #### G LULS #### Point of Care testing , Glucose [Mass/volume] in Ser um or PlasmaOrdered By: Tyler Valencia on 11-26-2024 Glucose [Mass/Vol] Glucose [Mass/volume ] in Serum or Plasma High 70-100 [facility] Comment on above: ADA recommended refe rence rangeRandom Glucose Reference Range is dependent on time and content of last meal. Glucose of more than 200 mg/dL in a nonstressed, ambulatory subject supports the diagnosis of Diabetes Mellitus. Glucose [Mass/Vol] 135 mg/dL High 70-100 [facility] Comment on above: ADA recommended refe rence rangeRandom Glucose Reference Range is dependent on time and content of last meal. Glucose of more than 200 mg/dL in a nonstressed, ambulatory subject supports the diagnosis of Diabetes Mellitus. Result Comment: [facility] Glucose Reference Range is dependent on time and content of last meal. Glucose of more than 200 mg/dL in a nonstressed, ambulatory subject supports the diagnosis of Diabetes Mellitus. ADA recommended reference range Performed By: #### D IFF CBC, BMP #### [facility] [address] Hematocrit Auto (Bld) [Volum e fraction]Ordered By: Demian Dorantes on 11-26-2024 Hematocrit (Bld) [Volume fraction] Hematocrit [Volume Fraction] of Blood by Automated count Low 34.0-46.4 [facility] Hematocrit [Volume Fraction] of Blood by Automated countOrdered By: Demian Dorantes on 11-26-2024 Hematocrit (Bld) [Volume fraction] 29.3 % Low 34.0-46.4 [facility] Comment on above: Performed By: #### G DIANE #### Point of Care testing , Hemoglobin [Mass/volume] in BloodOrdered By: Demian Dorantes on 11-26-2024 Hemoglobin (Bld) [Mass/Vol] Hemoglobin [Mass/volume] in Blood Low 11.8-15.4 [facility] Hemoglobin (Bld) [Mass/Vol] 9.7 g/dL Low 11.8-15.4 [facility] Comment on above: Performed By: #### G DIANE #### Point of Care testing , Leukocytes [#/volume] correc madhavi for nucleated erythrocytes in Blood by Automated counOrdered By: Demian Dorantes on 11-26-2024 WBC corrected for nucl RBC Auto (Bld) [#/Vol] Leukocytes [#/volume] corrected for nucleated erythrocytes in Blood by Automated coun 3.8-11.6 [facility] WBC corrected for nucl RBC Auto (Bld) [#/Vol] 5.8 10*3/uL 3.8-11.6 [facility] Leukocytes [#/volume] in Blo od by Automated countOrdered By: Demian Dorantes on 11-26-2024 WBC (Bld) [#/Vol] 5.8 10*3/uL Normal 3.8-11.6 [facility] Comment on above: Performed By: #### Martin CONTRERAS #### Point of Care testing , Lymphocytes Auto (Bld) [#/Vo l]Ordered By: Demian Dorantes on 11-26-2024 Lymphocytes (Bld) [#/Vol] Lymphocytes [#/volume] in Blood by Automated count 1.00-4.8 [facility] Lymphocytes [#/volume] in Bl ood by Automated countOrdered By: Demian Dorantes on 11-26-2024 Lymphocytes (Bld) [#/Vol] 2.3 10*3/uL Normal 1.00-4.8 [facility] Comment on above: Performed By: #### G LULS #### Point of Care testing , Lymphocytes/100 WBC Auto (Bl d)Ordered By: Demian Dorantes on 11-26-2024 Lymphocytes/100 WBC (Bld) Lymphocytes/100 leukocytes in Blood by Automated count . [facility] Lymphocytes/100 leukocytes i n Blood by Automated countOrdered By: Demian Dorantes on 11-26-2024 Lymphocytes/100 WBC (Bld) 40.1 % Normal . [facility] Comment on above: Performed By: #### G LULS #### Point of Care testing , MCH Auto (RBC) [Entitic mass ]Ordered By: Demian Dorantes on 11-26-2024 MCH (RBC) [Entitic mass] MCH [Entitic mass] by Automated count 24.7-34.3 [facility] MCH [Entitic mass] by Automa madhavi countOrdered By: Demian Dorantes on 11-26-2024 MCH (RBC) [Entitic mass] 26.2 pg Normal 24.7-34.3 [facility] Comment on above: Performed By: #### G LULS #### Point of Care testing , MCHC Auto (RBC) [Mass/Vol]Or dered By: Demian Dorantes on 11-26-2024 MCHC (RBC) [Mass/Vol] MCHC [Mass/volume] by Automated count 32.0-35.0 [facility] MCHC (RBC) [Mass/Vol] 33.1 g/dL 32.0-35.0 [facility] MCV Auto (RBC) [Entitic vol] Ordered By: Demian Dorantes on 11-26-2024 MCV (RBC) [Entitic vol] MCV [Entitic volume] by Automated count Low 80-100 [facility] MCV [Entitic volume] by Auto mated countOrdered By: Demian Dorantes on 11-26-2024 MCV (RBC) [Entitic vol] 79.0 fL Low 80-100 [facility] Comment on above: Performed By: #### G LULS #### Point of Care testing , Monocytes Auto (Bld) [#/Vol] Ordered By: Demian Lainezor on 11-26-2024 Monocytes (Bld) [#/Vol] Automated blood monocyte count 0.0-0.8 [facility] Monocytes [#/volume] in Bloo d by Automated countOrdered By: Demian Pricekpor on 11-26-2024 Monocytes (Bld) [#/Vol] 0.4 10*3/uL Normal 0.0-0.8 [facility] Comment on above: Performed By: #### G LULS #### Point of Care testing , Monocytes/100 WBC Auto (Bld) Ordered By: Demian Pricekpor on 11-26-2024 Monocytes/100 WBC (Bld) Automated monocyte % . [facility] Monocytes/100 leukocytes in Blood by Automated countOrdered By: Demian Dorantes on 11-26-2024 Monocytes/100 WBC (Bld) 6.8 % Normal . [facility] Comment on above: Performed By: #### G LULS #### Point of Care testing , Neutrophils Auto (Bld) [#/Vo l]Ordered By: Demian Dorantes on 11-26-2024 Neutrophils (Bld) [#/Vol] Neutrophils [#/volume] in Blood by Automated count 1.8-7.7 [facility] Neutrophils [#/volume] in Bl ood by Automated countOrdered By: Demian Dorantes on 11-26-2024 Neutrophils (Bld) [#/Vol] 2.8 10*3/uL Normal 1.8-7.7 [facility] Comment on above: Performed By: #### G LULS #### Point of Care testing , Neutrophils/100 WBC Auto (Bl d)Ordered By: Demian Dorantes on 11-26-2024 Neutrophils/100 WBC (Bld) Automated neutrophil % . [facility] Neutrophils/100 leukocytes i n Blood by Automated countOrdered By: Demian Jose E on 11-26-2024 Neutrophils/100 WBC (Bld) 49.0 % Normal . [facility] Comment on above: Performed By: #### G LULS #### Point of Care testing , No Panel InformationOrdered By: Demian Dorantes on 11-26-2024 Bedside Glucose Comment Glu2: cleaned meter [facility] No Panel InformationOrdered By: Tyler Valencia on 11-26-2024 Estimated GFR (CKD-EPI) 24.254 mL/Min [facility] Creatinine Clearance (Chem 20.53 [facility] Nucleated erythrocytes [Pres ence] in Blood by Automated countOrdered By: Demian Dorantes on 11-26-2024 Nucleated RBC Auto Ql (Bld) Nucleated erythrocytes [Presence] in Blood by Automated count 0-0.5 [facility] Nucleated RBC Auto Ql (Bld) 0.2 /100{WBC} 0-0.5 [facility] Phosphate [Mass/volume] in S ryan or PlasmaOrdered By: Tyler Valencia on 11-26-2024 Phosphate [Mass/Vol] Phosphate [Mass/vol ume] in Serum or Plasma 2.5-4.5 [facility] Phosphate [Mass/Vol] 4.0 mg/dL Normal 2.5-4.5 [facility] Comment on above: Performed By: #### D IFF CBC, BMP #### [facility] [address] Platelet mean volume Auto (B ld) [Entitic vol]Ordered By: Demian Dorantes on 11-26-2024 Platelet mean volume (Bld) [Entitic vol] Platelet mean volume [Entitic volume] in Blood by Automated count 6.3-10.7 [facility] Platelet mean volume [Entiti c volume] in Blood by Automated countOrdered By: Demian Dorantes on 11-26-2024 Platelet mean volume (Bld) [Entitic vol] 9.3 fL Normal 6.3-10.7 [facility] Comment on above: Performed By: #### G LULS #### Point of Care testing , Platelets Auto (Bld) [#/Vol] Ordered By: Demian Dorantes on 11-26-2024 Platelets (Bld) [#/Vol] Platelets [#/volume] in Blood by Automated count 150-450 [facility] Platelets [#/volume] in Bloo d by Automated countOrdered By: Demian Dorantes on 11-26-2024 Platelets (Bld) [#/Vol] 232 10*3/uL Normal 150-450 [facility] Comment on above: Performed By: #### G DIANE #### Point of Care testing , Potassium [Moles/volume] in Serum or PlasmaOrdered By: Tyler Valencia on 11-26-2024 Potassium [Moles/Vol] Potassium [Moles/v olume] in Serum or Plasma 3.5-5.1 [facility] Potassium [Moles/Vol] 4.5 mmol/L Normal 3.5-5.1 [facility] Comment on above: Performed By: #### D IFF CBC, BMP #### [address] RBC Auto (Bld) [#/Vol]Ordere d By: Demian Dorantes on 11-26-2024 RBC (Bld) [#/Vol] Erythrocytes [#/volu me] in Blood by Automated count 3.60-5.00 [facility] Renal Function Panelon 11-26 Albumin [Mass/Vol] 2.9 g/dL Low 3.5-5.[address] [facility] Comment on above: Performed By: #### D IFF CBC, BMP #### [facility] [address] [place] [address] Creatinine Clr Calc Pharmacy 20.53 Normal [facility] Comment on above: Result Comment: PERF ORMED BY: [place] [address] PATHOLOGIST POWER TONG OPERATOR NICK MOHR M.D. Performed By: #### D IFF CBC, BMP #### [address] Estimated GFR 24.254 mL/Min Normal [facility] Comment on above: Performed By: #### D IFF CBC, BMP #### [facility] [address] Serum or plasma anion gap de terminationOrdered By: Tyler Valencia on 11-26-2024 Anion gap [Moles/Vol] Serum or plasma an ion gap determination 6.0-15.0 [facility] Anion gap [Moles/Vol] 9.4 mmol/L Normal 6.0-15.0 [facility] Comment on above: Performed By: #### D IFF CBC, BMP #### [facility] [address] Sodium [Moles/volume] in Ser um or PlasmaOrdered By: Tyler Valencia on 11-26-2024 Sodium [Moles/Vol] Sodium [Moles/volume ] in Serum or Plasma 136-145 [facility] Sodium [Moles/Vol] 141 mmol/L Normal 136-145 [facility] Comment on above: Performed By: #### D IFF CBC, BMP #### [facility] [address] [place] [address] Urea nitrogen [Mass/volume] in Serum or PlasmaOrdered By: Tyler Valencia on 11-26-2024 Urea nitrogen [Mass/Vol] Urea nitrogen [Mass/volume] in Serum or Plasma [address] [facility] Urea nitrogen [Mass/Vol] 39 mg/dL [facility] 725 [facility] Comment on above: Performed By: #### D IFF CBC, BMP #### [facility] [address] [place] [address] WBC Auto (Bld) [#/Vol]Ordere d By: Demian Dorantes on 11-26-2024 WBC (Bld) [#/Vol] Leukocytes [#/volume ] in Blood by Automated count 3.8-11.6 [facility] ECH echo transthoracicon ECH echo transthoracic [facility] [place] [address] [place] [address] Echocardiogram Signed Patient: Aislinn Wheeler MR#: [id number] 01 : 1960 Acct:[id number] Age/Sex: 64 / F ADM Date: 11/23/24 Loc: Room: [address] [place] [address] Type: ADM IN Attending Dr: Demian Dorantes MD Ordering Provider: Diane Smith MD Date of Service: 11/23/2401/12/1850 [facility] transthoracic: assess for CHF Copies [...] Measurements from QLAB CI (): ED Mass (): LAEF (): 78.0 % BSA (): 1.6 m2 122.0 grams 2.7 l/min/m2 __ HEMALATHA (): LAVmax (): LAVmin (): 13.0 mlPat Height (): 37.0 ml/m2 58.0 ml 152.0 cm __ Pat Weight (): 60.2 kg QLAB Heart Model EDV ()_phl: 95.0 ml EF ()_phl: 58.0 % ED Current ()_phl: 60.0 % ESV ()_phl: 40.0 ml HR ()_phl: 77.0 BPMES Current ()_phl: 30.0 % LV Length ED ()_phl: 75.0 mmSV ()_phl: 55.0 ml ED Default ()_phl: 60.0 % LV Length ES ()_phl: 64.0 mm ES Default ()_phl: 30.0 % ___ Transcribed By: DELTA Performed At: 11/25/24 1311 Signed By: Irena Haro MD 11/25/24 1419 Normal [facility] Glucose Poct Glucometerson 0 11-25-2024 Commemt1 Glu2: Cleaned Meter Normal [facility] Comment on above: Result Comment: PERF ORMED BY: [place] [address] PATHOLOGIST POWER TONG OPERATOR NICK MOHR M.D. Performed By: #### G LULS #### Point of Care testing , Glucose [Mass/Vol] 145 mg/dL Normal [facility] Comment on above: Result Comment: [place] om Glucose Reference Range is dependent on time and content of last meal. Glucose of more than 200 mg/dL in a nonstressed, ambulatory subject supports the diagnosis of Diabetes Mellitus. Performed By: #### G LULS #### Point of Care testing , Glucose [Mass/Vol] 132 mg/dL Normal [facility] Comment on above: Result Comment: [place] om Glucose Reference Range is dependent on time and content of last meal. Glucose of more than 200 mg/dL in a nonstressed, ambulatory subject supports the diagnosis of Diabetes Mellitus. PERFORMED BY: [address] [address] PATHOLOGIST POWER TONG OPERATOR NICK MOHR M.D. Performed By: #### G LULS #### Point of Care testing , Glucose [Mass/Vol] 99 mg/dL Normal [facility] Comment on above: Result Comment: [place] [facility] Glucose Reference Range is dependent on time and content of last meal. Glucose of more than 200 mg/dL in a nonstressed, ambulatory subject supports the diagnosis of Diabetes Mellitus. PERFORMED BY: [address] [address] PATHOLOGIST POWER TONG OPERATOR NICK MOHR M.D. Performed By: #### D IFF CBC, BMP #### [address] [address] [place] perf SPECT rest stron 11-25-2024 [place] perf SPECT rest str [facility] Main [place] [address] [place] [address] Nuclear Medicine Report Signed Patient: Aislinn Wheeler MR#: [id number] 01 : 1960 Acct:[id number] Age/Sex: 64 / F ADM Date: 11/23/24 Loc: 3T Room: [address] [place] [address] Type: ADM IN Attending Dr: Demian Dorantes [...] Irena Haro M.D.11/25/2024 3:24 PM Dictation Location: [place] [address] Transcribed By: [facility] 11/25/24 1524 Dictated By: Irena Haro MD 11/25/24 1523 Signed By: 11/25/24 1524 Normal [facility] No Panel InformationOrdered By: Irena Haro on 11-25-2024 [facility] [address] [place] [address] [employer], [place] [id number] Cardiac Stress Test Signed Patient: Aislinn Wheeler MR#: [id number] : 1960 Date of Service:0 11/25/24 Age/Sex: 64 / F ADM Date: 5 Loc: 3T Room: [address] [place] [address] Type: ADM IN Attending Dr: Demian Dorantes MD Copies to: MD Irena Olsen MD Lisa J Aichholz, NP-C~ INDICATION FOR STUDY/DIAGNOSIS: Chest pain PROCEDURE: After [...] Haro MD 11/25/24 1444 Signed By: 11/25/24 1441 [facility] Work Phone: Renal Function Panelon 11-25 Albumin [Mass/Vol] 3.2 g/dL Low 3.5-5.[address] [facility] Comment on above: Performed By: #### G LULS #### Point of Care testing , Anion gap [Moles/Vol] 10.2 mmol/L Normal 6.0-15.0 [facility] Comment on above: Performed By: #### G LULS #### Point of Care testing , Calcium [Mass/Vol] 8.2 mg/dL Low 8.6-10.[address] [facility] Comment on above: Performed By: #### G LULS #### Point of Care testing , Chloride [Moles/Vol] 106 mmol/L Normal 98-107 [facility] Comment on above: Performed By: #### G LULS #### Point of Care testing , CO2 [Moles/Vol] 28.6 mmol/L Normal 21.0-31.0 [facility] Comment on above: Performed By: #### G LULS #### Point of Care testing , Creatinine [Mass/Vol] 2.22 mg/dL High 0.60-1.20 [facility] Comment on above: Performed By: #### G LULS #### Point of Care testing , Creatinine Clr Calc Pharmacy 20.22 Normal [facility] Comment on above: Result Comment: PERF ORMED BY: [facility] [place] [address] PATHOLOGIST POWER TONG OPERATOR NCIK MOHR M.D. Performed By: #### G LULS #### Point of Care testing , Estimated GFR 23.862 mL/Min Normal [facility] Comment on above: Performed By: #### G LULS #### Point of Care testing , Glucose [Mass/Vol] 72 mg/dL Significant change down 70-100 [facility] Comment on above: Result Comment: [facility] Glucose Reference Range is dependent on time and content of last meal. Glucose of more than 200 mg/dL in a nonstressed, ambulatory subject supports the diagnosis of Diabetes Mellitus. ADA recommended reference range Performed By: #### G LULS #### Point of Care testing , Phosphate [Mass/Vol] 3.1 mg/dL Normal 2.5-4.5 [facility] Comment on above: Performed By: #### G LULS #### Point of Care testing , Potassium [Moles/Vol] 4.8 mmol/L Normal 3.5-5.1 [facility] Comment on above: Performed By: #### G LULS #### Point of Care testing , Sodium [Moles/Vol] 140 mmol/L Normal 136-[address] [facility] Comment on above: Performed By: #### G LULS #### Point of Care testing , Urea nitrogen [Mass/Vol] 47 mg/dL High 7-25 [facility] Comment on above: Performed By: #### G LULS #### Point of Care testing , A1C with Estimated Average G maliblessing 11-24-2024 Glucose [Mass/Vol] 223 mg/dL Normal [facility] Comment on above: Order Comment: Comme nt Add on Result Comment: PERF ORMED BY: [facility] [address] [place] [address] PATHOLOGIST POWER TONG OPERATOR NICK MOHR M.D. Performed By: #### G LULS #### Point of Care testing , Alanine aminotransferase [En zymatic activity/volume] in Serum or PlasmaOrdered By: Diane Smith on 11-24-2024 ALT [Catalytic activity/Vol] Alanine aminotransferase [Enzymatic activity/volume] in Serum or Plasma 7-52 [facility] ALT [Catalytic activity/Vol] 14 U/L Normal 7-52 [facility] Comment on above: Performed By: #### G LULS #### Point of Care testing , Alkaline phosphatase [Enzyma tic activity/volume] in Serum or PlasmaOrdered By: Diane Smith on 11-24-2024 ALP [Catalytic activity/Vol] Alkaline phosphatase [Enzymatic activity/volume] in Serum or Plasma 34-104 [facility] ALP [Catalytic activity/Vol] 79 U/L Normal 34-104 [facility] Comment on above: Performed By: #### G LULS #### Point of Care testing , Aspartate aminotransferase [ Enzymatic activity/volume] in Serum or PlasmaOrdered By: Diane Smith on 11-24-2024 AST [Catalytic activity/Vol] Aspartate aminotransferase [Enzymatic activity/volume] in Serum or Plasma Low 13-39 [facility] AST [Catalytic activity/Vol] 12 U/L Low 13-39 [facility] Comment on above: Performed By: #### G LULS #### Point of Care testing , Bilirubin.total [Mass/volume ] in Serum or PlasmaOrdered By: Diane Smith on 11-24-2024 Bilirubin [Mass/Vol] Bilirubin.total [Mass/volume] in Serum or Plasma Low 0.3-1.0 [facility] Bilirubin [Mass/Vol] 0.1 mg/dL Low 0.3-1.0 [facility] Comment on above: Performed By: #### G LULS #### Point of Care testing , Blood estimated average gluc ose determination by estimation from glycated hemoglobinOrdered By: Irena Schuster on 11-24-2024 Average glucose Estimated from glycated hemoglobin (Bld) [Mass/Vol] Glucose mean value [Mass/volume] in Blood Estimated from glycated hemoglobin [facility] Average glucose Estimated from glycated hemoglobin (Bld) [Mass/Vol] 223 mg/dL [facility] Complete Blood Count Auto Di ffon 11-24-2024 Basophils (Bld) [#/Vol] 0.1 10*3/uL Normal 0.0-0.2 [facility] Comment on above: Result Comment: PERF ORMED BY: [facility] [place] [address] PATHOLOGIST POWER TONG OPERATOR NICK MOHR M.D. Performed By: #### G LULS #### Point of Care testing , Basophils/100 WBC (Bld) 1.0 % Normal . [facility] Comment on above: Performed By: #### G LULS #### Point of Care testing , Eosinophils (Bld) [#/Vol] 0.2 10*3/uL Normal 0.0-0.45 [facility] Comment on above: Performed By: #### G LULS #### Point of Care testing , Eosinophils/100 WBC (Bld) 3.2 % Normal . [facility] Comment on above: Performed By: #### G LULS #### Point of Care testing , Erythrocyte distribution width (RBC) [Ratio] 13.7 % Normal 11.9-15.3 [facility] Comment on above: Performed By: #### G LULS #### Point of Care testing , Hematocrit (Bld) [Volume fraction] 30.4 % Low 34.0-46.4 [facility] Comment on above: Performed By: #### G LULS #### Point of Care testing , Hemoglobin (Bld) [Mass/Vol] 10.1 g/dL Low 11.8-15.4 [facility] Comment on above: Performed By: #### G LULS #### Point of Care testing , Lymphocytes (Bld) [#/Vol] 2.6 10*3/uL Normal 1.00-4.8 [facility] Comment on above: Performed By: #### G LULS #### Point of Care testing , Lymphocytes/100 WBC (Bld) 40.3 % Normal . [facility] Comment on above: Performed By: #### G LULS #### Point of Care testing , MCH (RBC) [Entitic mass] 25.7 pg Normal 24.7-34.3 [facility] Comment on above: Performed By: #### G LULS #### Point of Care testing , MCV (RBC) [Entitic vol] 77.8 fL Low 80-100 [facility] Comment on above: Performed By: #### G LULS #### Point of Care testing , Mean Corpuscular HGB Conc 33.1 g/dL Normal 32.0-35.0 [facility] Comment on above: Performed By: #### G LULS #### Point of Care testing , Monocytes (Bld) [#/Vol] 0.4 10*3/uL Normal 0.0-0.8 [facility] Comment on above: Performed By: #### G LULS #### Point of Care testing , Monocytes/100 WBC (Bld) 6.5 % Normal . [facility] Comment on above: Performed By: #### G LULS #### Point of Care testing , Neutrophils (Bld) [#/Vol] 3.1 10*3/uL Normal 1.8-7.7 [facility] Comment on above: Performed By: #### G LULS #### Point of Care testing , Neutrophils/100 WBC (Bld) 49.0 % Normal . [facility] Comment on above: Performed By: #### G LULS #### Point of Care testing , NRBC% 0.0 /100{WBC} Normal 0-0.5 [facility] Comment on above: Performed By: #### G LULS #### Point of Care testing , Platelet mean volume (Bld) [Entitic vol] 9.1 fL Normal 6.3-10.7 [facility] Comment on above: Performed By: #### G LULS #### Point of Care testing , Platelets (Bld) [#/Vol] 266 10*3/uL Normal 150-450 [facility] Comment on above: Performed By: #### G LULS #### Point of Care testing , RBC (Bld) [#/Vol] 3.91 10*6/uL Normal 3.60-5.00 [facility] Comment on above: Performed By: #### G LULS #### Point of Care testing , WBC (Bld) [#/Vol] 6.4 10*3/uL Normal 3.8-11.[address] [facility] Comment on above: Performed By: #### G LULS #### Point of Care testing , Comprehensive Metabolic Pane krystin 11-24-2024 Albumin [Mass/Vol] 2.9 g/dL Low 3.5-5.[address] [facility] Comment on above: Performed By: #### G LULS #### Point of Care testing , Anion gap [Moles/Vol] 9.1 mmol/L Normal 6.0-15.0 [facility] Comment on above: Performed By: #### G LULS #### Point of Care testing , Calcium [Mass/Vol] 8.0 mg/dL Low 8.6-10.[address] [facility] Comment on above: Performed By: #### G LULS #### Point of Care testing , Chloride [Moles/Vol] 111 mmol/L High 98-107 [facility] Comment on above: Performed By: #### G LULS #### Point of Care testing , CO2 [Moles/Vol] 22.9 mmol/L Normal 21.0-31.0 [facility] Comment on above: Performed By: #### G LULS #### Point of Care testing , Creatinine [Mass/Vol] 2.37 mg/dL High 0.60-1.20 [facility] Comment on above: Performed By: #### G LULS #### Point of Care testing , Creatinine Clr Calc Pharmacy 18.91 Normal [facility] Comment on above: Performed By: #### G LULS #### Point of Care testing , Estimated GFR 22.061 mL/Min Normal [facility] Comment on above: Performed By: #### G LULS #### Point of Care testing , Glucose [Mass/Vol] 204 mg/dL Significant change up 70-100 [facility] Comment on above: Result Comment: [place] Glucose Reference Range is dependent on time and content of last meal. Glucose of more than 200 mg/dL in a nonstressed, ambulatory subject supports the diagnosis of Diabetes Mellitus. ADA recommended reference range Performed By: #### G LULS #### Point of Care testing , Potassium [Moles/Vol] 5.0 mmol/L Normal 3.5-5.1 [facility] Comment on above: Performed By: #### G LULS #### Point of Care testing , Sodium [Moles/Vol] 138 mmol/L Normal 136-[address] [facility] Comment on above: Performed By: #### G LULS #### Point of Care testing , Urea nitrogen [Mass/Vol] 52 mg/dL High 7-25 [facility] Comment on above: Performed By: #### G LULS #### Point of Care testing , Globulin Calc (S) [Mass/Vol] Ordered By: Diane Smith on 11-24-2024 Globulin (S) [Mass/Vol] Serum globulin measurement by calculation (mass/volume) [facility] Glucose Poct Glucometerson 0 11-24-2024 Glucose [Mass/Vol] 166 mg/dL Normal [facility] Comment on above: Result Comment: [facility] Glucose Reference Range is dependent on time and content of last meal. Glucose of more than 200 mg/dL in a nonstressed, ambulatory subject supports the diagnosis of Diabetes Mellitus. PERFORMED BY: [address] [place] [address] PATHOLOGIST POWER TONG OPERATOR NICK MOHR M.D. Performed By: #### G LULS #### Point of Care testing , Glucose [Mass/Vol] 89 mg/dL Normal [facility] Comment on above: Result Comment: [facility] Glucose Reference Range is dependent on time and content of last meal. Glucose of more than 200 mg/dL in a nonstressed, ambulatory subject supports the diagnosis of Diabetes Mellitus. PERFORMED BY: [facility] [address] [facility] [place] [address] PATHOLOGIST POWER TONG OPERATOR NICK MOHR M.D. Performed By: #### G LULS #### Point of Care testing , Glucose [Mass/Vol] 238 mg/dL Normal [facility] Comment on above: Result Comment: [place] Glucose Reference Range is dependent on time and content of last meal. Glucose of more than 200 mg/dL in a nonstressed, ambulatory subject supports the diagnosis of Diabetes Mellitus. PERFORMED BY: [facility] [address] [place] [address] PATHOLOGIST POWER TONG OPERATOR NICK MOHR M.D. Performed By: #### H BSAB, HBCAB, HEPACUTE #### [facility] , Hemoglobin A1c/Hemoglobin.to tae in BloodOrdered By: Irena Schuster on 11-24-2024 HbA1c (Bld) [Mass fraction] Hemoglobin A1c percentage High 4.3-5.6 [facility] Comment on above: Increased risk for d iabetes: 5.7 - 6.4diabetes: >6.4glycemic control for adults with diabetes: <7.0 HbA1c (Bld) [Mass fraction] 9.4 % High 4.3-5.6 [facility] Comment on above: Increased risk for d iabetes: 5.7 - 6.4diabetes: >6.4glycemic control for adults with diabetes: <7.0 Order Comment: Comme nt Add on Result Comment: Incr eased risk for diabetes: 5.7 - 6.4 diabetes: >6.4 glycemic control for adults with diabetes: <7.0 Performed By: #### G LULS #### Point of Care testing , Magnesium [Mass/volume] in S ryan or PlasmaOrdered By: Diane Smith on 11-24-2024 Magnesium [Mass/Vol] Magnesium [Mass/vol ume] in Serum or Plasma 1.9-2.7 [facility] Magnesium [Mass/Vol] 2.0 mg/dL Normal 1.9-2.7 [facility] Comment on above: Result Comment: PERF ORMED BY: [facility] [address] [place] [address] PATHOLOGIST POWER TONG OPERATOR NICK MOHR M.D. Performed By: #### G LULS #### Point of Care testing , Phosphoruson 11-24-2024 Phosphate [Mass/Vol] 3.9 mg/dL Normal 2.5-4.5 [facility] Comment on above: Performed By: #### G LULS #### Point of Care testing , Protein [Mass/volume] in Ser um or PlasmaOrdered By: Diane Smith on 11-24-2024 Protein [Mass/Vol] Protein [Mass/volume ] in Serum or Plasma 6.4-8.9 [facility] Protein [Mass/Vol] 6.5 g/dL Normal 6.4-8.9 [facility] Comment on above: Performed By: #### G LULS #### Point of Care testing , Serum globulin measurement b y calculation (mass/volume)Ordered By: Diane Smith on 11-24-2024 Globulin (S) [Mass/Vol] 3.6 g/dL Normal [facility] Comment on above: Performed By: #### G LULS #### Point of Care testing , Serum or plasma albumin/glob ulin mass ratioOrdered By: Diane Smith on 11-24-2024 Albumin/Globulin [Mass ratio] Serum or plasma albumin/globulin mass ratio [facility] Albumin/Globulin [Mass ratio] 0.8 {ratio} Normal [facility] Comment on above: Performed By: #### G LULS #### Point of Care testing , X-ray reportOrdered By: Dean Potter on 11-24-2024 Study report [facility] Main [address] [address] XRay Report Signed Patient: Aislinn Wheeler MR#: [id number] : 1960 Acct:[id number] Age/Sex: 64 / F ADM Date: 5 Loc: Room: [address] [place] [address] Type: ADM IN Attending Dr: Diane Smith [...] Raf Potter M.D.11/24/2024 2:48 PM Dictation Location: [place] [address] Transcribed By: AMEE 11/24/24 1448 Dictated By: Raf Potter MD 11/24/24 144 Signed By: 11/24/24 1448 [facility] Work Phone: Study report [facility] [place] [address] XRay Report Signed Patient: Aislinn Wheeler MR#: [id number] : 1960 Acct:[id number] Age/Sex: 64 / F ADM Date: 5 Loc: Room: [address] [place] [address] Type: ADM IN Attending Dr: Diane Smith [...] MD 11/24/24 0805 Signed By: 11/24/24 0807 [facility] Work Phone: XR foot RT 2Von 11-24-2024 XR foot RT 2V [facility] Main [place] [address] [place] [id number] XRay Report Signed Patient: Aislinn Wheeler MR#: [id number] 01 : 1960 Acct:[id number] Age/Sex: 64 / F ADM Date: 11/23/24 Loc: Room: [address] [place] [address] Type: ADM IN Attending Dr: Diane Smith [...] 1446 Signed By: 11/24/24 1448 Normal [facility] XR foot RT 2V [facility] Main [address] [address] XRay Report Signed Patient: Aislinn Wheeler MR#: [id number] 01 : 1960 Acct:[id number] Age/Sex: 64 / F ADM Date: 11/23/24 Loc: Room: [address] [place] [address] Type: ADM IN Attending Dr: Diane Smith [...] Raf Potter M.D.11/24/2024 8:07 AM Dictation Location: [place] [address] Transcribed By: [facility] 11/24/24 08 Dictated By: Raf Potter MD 11/24/24 08 Signed By: 11/24/24 0807 Normal [facility] Alanine aminotransferase [En zymatic activity/volume] in Serum or PlasmaOrdered By: Jr Layne on 11-23-2024 ALT [Catalytic activity/Vol] Alanine aminotransferase [Enzymatic activity/volume] in Serum or Plasma 7-52 [facility] Albumin [Mass/volume] in Ser um or Plasma by Bromocresol green (BCG) dye binding methoOrdered By: Jr Layne on 11-23-2024 Albumin BCG dye [Mass/Vol] Albumin [Mass/volume] in Serum or Plasma by Bromocresol green (BCG) dye binding metho Low 3.5-5.7 [facility] Alkaline phosphatase [Enzyma tic activity/volume] in Serum or PlasmaOrdered By: Jr Layne on 11-23-2024 ALP [Catalytic activity/Vol] Alkaline phosphatase [Enzymatic activity/volume] in Serum or Plasma 34-104 [facility] Appearance of UrineOrdered B y: Jr Layne on 11-23-2024 Appearance (U) Urine appearance Clear [facility] Appearance (U) Clear Normal Clear [facility] Comment on above: Order Comment: Name Collection Type:: Clean-Voided Midstream Performed By: #### G LULS #### Point of Care testing , Aspartate aminotransferase [ Enzymatic activity/volume] in Serum or PlasmaOrdered By: Jr Layne on 11-23-2024 AST [Catalytic activity/Vol] Aspartate aminotransferase [Enzymatic activity/volume] in Serum or Plasma 13-39 [facility] BNP ser/plasOrdered By: Jr Layne on 11-23-2024 Natriuretic peptide B (Bld) [Mass/Vol] 126.0 pg/mL High 5-100 [facility] Comment on above: Result Comment: PERF ORMED BY: [facility] [address] [place] [address] PATHOLOGIST POWER TONG OPERATOR NICK MOHR M.D. Performed By: #### G LULS #### Point of Care testing , Bacteria [Presence] in Urine by AutomatedOrdered By: Jr Layne on 11-23-2024 Bacteria Auto Ql (U) Bacteria [Presence] in Urine by Automated None Seen [facility] Bacteria Auto Ql (U) None seen [HPF] None Seen [facility] Basic Metabolic Panelon 04 Anion gap [Moles/Vol] 11.4 mmol/L Normal 6.0-15.0 [facility] Comment on above: Performed By: #### G LULS #### Point of Care testing , Calcium [Mass/Vol] 8.9 mg/dL Normal 8.6-10.[address] [facility] Comment on above: Performed By: #### G LULS #### Point of Care testing , Chloride [Moles/Vol] 111 mmol/L High 98-107 [facility] Comment on above: Performed By: #### G LULS #### Point of Care testing , CO2 [Moles/Vol] 19.3 mmol/L Low 21.0-31.0 [facility] Comment on above: Performed By: #### G LULS #### Point of Care testing , Creatinine [Mass/Vol] 2.46 mg/dL High 0.60-1.20 [facility] Comment on above: Performed By: #### G LULS #### Point of Care testing , Creatinine Clr Calc Pharmacy 18.24 Normal [facility] Comment on above: Result Comment: PERF ORMED BY: [facility] [place] [address] PATHOLOGIST POWER TONG OPERATOR NICK MOHR M.D. Performed By: #### G LULS #### Point of Care testing , Estimated GFR 21.096 mL/Min Normal [facility] Comment on above: Performed By: #### G LULS #### Point of Care testing , Glucose [Mass/Vol] 99 mg/dL Normal 70-[address] [facility] Comment on above: Result Comment: [facility] Glucose Reference Range is dependent on time and content of last meal. Glucose of more than 200 mg/dL in a nonstressed, ambulatory subject supports the diagnosis of Diabetes Mellitus. ADA recommended reference range Performed By: #### G LULS #### Point of Care testing , Potassium [Moles/Vol] 4.7 mmol/L Normal 3.5-5.1 [facility] Comment on above: Performed By: #### G LULS #### Point of Care testing , Sodium [Moles/Vol] 137 mmol/L Normal 136-[address] [facility] Comment on above: Performed By: #### G LULS #### Point of Care testing , Urea nitrogen [Mass/Vol] 54 mg/dL High 7-25 [facility] Comment on above: Performed By: #### G LULS #### Point of Care testing , Basophils Auto (Bld) [#/Vol] Ordered By: Jr Layne on 11-23-2024 Basophils (Bld) [#/Vol] Automated basophil count 0.0-0.2 [facility] Basophils/100 WBC Auto (Bld) Ordered By: Jr Layne on 11-23-2024 Basophils/100 WBC (Bld) Automated basophil % . [facility] Bilirubin Test strip Ql (U)O rdered By: Jr Layne on 11-23-2024 Bilirubin Ql (U) Bilirubin.total [Presence] in Urine by Test strip Negative [facility] Bilirubin Ql (U) Negative Negative [facility] Bilirubin.total [Mass/volume ] in Serum or PlasmaOrdered By: Jr Layne on 11-23-2024 Bilirubin [Mass/Vol] Bilirubin.total [Mass/volume] in Serum or Plasma Low 0.3-1.0 [facility] C reactive protein [Mass/vol ume] in Serum or PlasmaOrdered By: Diane Smith on 11-23-2024 CRP [Mass/Vol] C reactive protein [Mass/volume] in Serum or Plasma 0.0-0.5 [facility] CRP [Mass/Vol] < 0.5 mg/dL 0.0-0.5 [facility] C-Reactive Proteinon 025 CRP [Mass/Vol] mg/L Normal 0.0-0.5 [facility] Comment on above: Result Comment: PERF ORMED BY: [place] [address] PATHOLOGIST POWER TONG OPERATOR NICK MOHR M.D. Performed By: #### H BSAB, HBCAB, HEPACUTE #### [facility] , CT abdomen pelvis wo conon 0 11-23-2024 CT abdomen pelvis wo con [facility] [place] [address] CT Scan Report Signed Patient: Aislinn Wheeler MR#: [id number] 01 : 1960 Acct:[id number] Age/Sex: 64 / F ADM Date: 11/23/24 Loc: Room: [address] [place] [address] Type: ADM IN Attending Dr: Diane Smith [...] Raf Potter M.D.11/23/2024 6:50 PM Dictation Location: [place] [address] Transcribed By: [facility] 11/23/241849 Dictated By: Raf Potter MD 11/23/24 183 Signed By: 11/23/24 185 Normal [facility] Calcium [Mass/volume] in Ser um or PlasmaOrdered By: Jr Layne on 11-23-2024 Calcium [Mass/Vol] Calcium [Mass/volume ] in Serum or Plasma 8.6-10.3 [facility] Carbon dioxide, total [Moles /volume] in Serum or PlasmaOrdered By: Jr Layne on 11-23-2024 CO2 [Moles/Vol] Carbon dioxide, tota l [Moles/volume] in Serum or Plasma Low 21.0-31.0 [facility] [facility] Chlor[facility] [Moles/volume] in S ryan or PlasmaOrdered By: Jr Layne on 11-23-2024 Chloride [Moles/Vol] Chloride [Moles/vol ume] in Serum or Plasma 98-107 [facility] Color Auto (U)Ordered By: Lacie Layne on 11-23-2024 Color (U) Color of Urine by Auto [facility] Color of Urine by AutoOrdere d By: Jr Layne on 11-23-2024 Color (U) Colorless Normal Yellow [facility] Comment on above: Order Comment: Name Collection Type:: Clean-Voided Midstream Performed By: #### G LULS #### Point of Care testing , Complete Blood Count Auto Di ffon 11-23-2024 Basophils (Bld) [#/Vol] 0.1 10*3/uL Normal 0.0-0.2 [facility] Comment on above: Result Comment: PERF ORMED BY: [facility] [address] [place] [address] PATHOLOGIST POWER TONG OPERATOR NICK MOHR M.D. Performed By: #### H BSAB, HBCAB, HEPACUTE #### [facility] , Basophils/100 WBC (Bld) 1.0 % Normal . [facility] Comment on above: Performed By: #### H BSAB, HBCAB, HEPACUTE #### [facility] , Eosinophils (Bld) [#/Vol] 0.2 10*3/uL Normal 0.0-0.45 [facility] Comment on above: Performed By: #### H BSAB, HBCAB, HEPACUTE #### [facility] , Eosinophils/100 WBC (Bld) 3.1 % Normal . [facility] Comment on above: Performed By: #### H BSAB, HBCAB, HEPACUTE #### [facility] , Erythrocyte distribution width (RBC) [Ratio] 13.7 % Normal 11.9-15.3 [facility] Comment on above: Performed By: #### H BSAB, HBCAB, HEPACUTE #### [facility] , Hematocrit (Bld) [Volume fraction] 31.5 % Low 34.0-46.4 [facility] Comment on above: Performed By: #### H BSAB, HBCAB, HEPACUTE #### [facility] , Hemoglobin (Bld) [Mass/Vol] 10.7 g/dL Low 11.8-15.4 [facility] Comment on above: Performed By: #### H BSAB, HBCAB, HEPACUTE #### [facility] , Lymphocytes (Bld) [#/Vol] 2.4 10*3/uL Normal 1.00-4.8 [facility] Comment on above: Performed By: #### H BSAB, HBCAB, HEPACUTE #### [facility] , Lymphocytes/100 WBC (Bld) 37.2 % Normal . [facility] Comment on above: Performed By: #### H BSAB, HBCAB, HEPACUTE #### [facility] , MCH (RBC) [Entitic mass] 26.5 pg Normal 24.7-34.3 [facility] Comment on above: Performed By: #### H BSAB, HBCAB, HEPACUTE #### [facility] , MCV (RBC) [Entitic vol] 78.3 fL Low 80-100 [facility] Comment on above: Performed By: #### H BSAB, HBCAB, HEPACUTE #### [facility] , Mean Corpuscular HGB Conc 33.8 g/dL Normal 32.0-35.0 [facility] Comment on above: Performed By: #### H BSAB, HBCAB, HEPACUTE #### [facility] , Monocytes (Bld) [#/Vol] 0.4 10*3/uL Normal 0.0-0.8 [facility] Comment on above: Performed By: #### H BSAB, HBCAB, HEPACUTE #### [facility] , Monocytes/100 WBC (Bld) 18.48 % Normal 0.00-20.00 [facility] Comment on above: Performed By: #### H BSAB, HBCAB, HEPACUTE #### [facility] , Monocytes/100 WBC (Bld) 6.9 % Normal . [facility] Comment on above: Performed By: #### H BSAB, HBCAB, HEPACUTE #### [facility] , Neutrophils (Bld) [#/Vol] 3.3 10*3/uL Normal 1.8-7.7 [facility] Comment on above: Performed By: #### H BSAB, HBCAB, HEPACUTE #### [facility] , Neutrophils/100 WBC (Bld) 51.8 % Normal . [facility] Comment on above: Performed By: #### H BSAB, HBCAB, HEPACUTE #### [facility] , NRBC% 0.1 /100{WBC} Normal 0-0.5 [facility] Comment on above: Performed By: #### H BSAB, HBCAB, HEPACUTE #### [facility] , Platelet mean volume (Bld) [Entitic vol] 8.9 fL Normal 6.3-10.7 [facility] Comment on above: Performed By: #### H BSAB, HBCAB, HEPACUTE #### [facility] , Platelets (Bld) [#/Vol] 279 10*3/uL Normal 150-450 [facility] Comment on above: Performed By: #### H BSAB, HBCAB, HEPACUTE #### [facility] , RBC (Bld) [#/Vol] 4.02 10*6/uL Normal 3.60-5.00 [facility] Comment on above: Performed By: #### H BSAB, HBCAB, HEPACUTE #### [facility] , WBC (Bld) [#/Vol] 6.4 10*3/uL Normal 3.8-11.[address] [facility] Comment on above: Performed By: #### H BSAB, HBCAB, HEPACUTE #### [facility] , Comprehensive Metabolic Pane krystin 11-23-2024 Albumin [Mass/Vol] 3.4 g/dL Low 3.5-5.[address] [facility] Comment on above: Performed By: #### H BSAB, HBCAB, HEPACUTE #### [facility] , Albumin/Globulin [Mass ratio] 0.8 {ratio} Normal [facility] Comment on above: Performed By: #### H BSAB, HBCAB, HEPACUTE #### [facility] , ALP [Catalytic activity/Vol] 93 U/L Normal 34-104 [facility] Comment on above: Performed By: #### H BSAB, HBCAB, HEPACUTE #### [facility] , ALT [Catalytic activity/Vol] 17 U/L Normal 7-52 [facility] Comment on above: Performed By: #### H BSAB, HBCAB, HEPACUTE #### [facility] , Anion gap [Moles/Vol] 13.1 mmol/L Normal 6.0-15.0 [facility] Comment on above: Performed By: #### H BSAB, HBCAB, HEPACUTE #### [facility] , AST [Catalytic activity/Vol] 17 U/L Normal 13-39 [facility] Comment on above: Performed By: #### H BSAB, HBCAB, HEPACUTE #### [facility] , Bilirubin [Mass/Vol] 0.2 mg/dL Low 0.3-1.0 [facility] Comment on above: Performed By: #### H BSAB, HBCAB, HEPACUTE #### [facility] , Calcium [Mass/Vol] 8.8 mg/dL Normal 8.6-10.[address] [facility] Comment on above: Performed By: #### H BSAB, HBCAB, HEPACUTE #### [facility] , Chloride [Moles/Vol] 107 mmol/L Normal 98-107 [facility] Comment on above: Performed By: #### H BSAB, HBCAB, HEPACUTE #### [facility] , CO2 [Moles/Vol] 20.4 mmol/L Low 21.0-31.0 [facility] Comment on above: Performed By: #### H BSAB, HBCAB, HEPACUTE #### [facility] , Creatinine [Mass/Vol] 2.62 mg/dL High 0.60-1.20 [facility] Comment on above: Performed By: #### H BSAB, HBCAB, HEPACUTE #### [facility] , Creatinine Clr Calc Pharmacy 17.13 Normal [facility] Comment on above: Performed By: #### H BSAB, HBCAB, HEPACUTE #### [facility] , Estimated GFR 19.560 mL/Min Normal [facility] Comment on above: Performed By: #### H BSAB, HBCAB, HEPACUTE #### [facility] , Globulin (S) [Mass/Vol] 4.3 g/dL Normal [facility] Comment on above: Performed By: #### H BSAB, HBCAB, HEPACUTE #### [facility] , Glucose [Mass/Vol] 190 mg/dL High 70-[address] [facility] Comment on above: Result Comment: [place] Glucose Reference Range is dependent on time and content of last meal. Glucose of more than 200 mg/dL in a nonstressed, ambulatory subject supports the diagnosis of Diabetes Mellitus. ADA recommended reference range Performed By: #### H BSAB, HBCAB, HEPACUTE #### [facility] , Potassium [Moles/Vol] 5.5 mmol/L High 3.5-5.1 [facility] Comment on above: Performed By: #### H BSAB, HBCAB, HEPACUTE #### [facility] , Protein [Mass/Vol] 7.7 g/dL Normal 6.4-8.[address] [facility] Comment on above: Performed By: #### H BSAB, HBCAB, HEPACUTE #### [facility] , Sodium [Moles/Vol] 135 mmol/L Low 136-[address] [facility] Comment on above: Performed By: #### H BSAB, HBCAB, HEPACUTE #### [facility] , Urea nitrogen [Mass/Vol] 55 mg/dL High 7-25 [facility] Comment on above: Performed By: #### H BSAB, HBCAB, HEPACUTE #### [facility] , Creatinine [Mass/volume] in Serum or PlasmaOrdered By: Jr Layne on 11-23-2024 Creatinine [Mass/Vol] Creatinine [Mass/v olume] in Serum or Plasma High 0.60-1.20 [facility] Dipstick and Microscopicon 0 11-23-2024 Bacteria,Urine None Seen Normal None Seen [facility] Comment on above: Order Comment: Name Collection Type:: Clean-Voided Midstream Performed By: #### G LULS #### Point of Care testing , Bilirubin,Urine Negative Normal Negative [facility] Comment on above: Order Comment: Name Collection Type:: Clean-Voided Midstream Performed By: #### G LULS #### Point of Care testing , Glucose Ql (U) 500 mg/dL High Normal [facility] Comment on above: Order Comment: Name Collection Type:: Clean-Voided Midstream Performed By: #### G LULS #### Point of Care testing , Hyaline Casts,Urine None Normal 0-8 [facility] Comment on above: Order Comment: Name Collection Type:: Clean-Voided Midstream Result Comment: PERF ORMED BY: [facility] [address] [place] [address] PATHOLOGIST POWER TONG OPERATOR NICK MOHR M.D. Performed By: #### G LULS #### Point of Care testing , Nitrite,Urine Negative Normal Negative [facility] Comment on above: Order Comment: Name Collection Type:: Clean-Voided Midstream Performed By: #### G LULS #### Point of Care testing , Occult Blood,Urine Negative Normal Negative [facility] Comment on above: Order Comment: Name Collection Type:: Clean-Voided Midstream Result Comment: PERF ORMED BY: [place] [address] PATHOLOGIST POWER TONG OPERATOR NICK MOHR M.D. Performed By: #### G LULS #### Point of Care testing , RBC,Urine 1-2 Normal 0-4 [facility] Comment on above: Order Comment: Name Collection Type:: Clean-Voided Midstream Performed By: #### G LULS #### Point of Care testing , Specificy [place],Urine 1.010 Normal 1.001-1.030 [facility] Comment on above: Order Comment: Name Collection Type:: Clean-Voided Midstream Performed By: #### G LULS #### Point of Care testing , Squamous Epithelial Cell,Urine 1-2 Normal 0-2 [facility] Comment on above: Order Comment: Name Collection Type:: Clean-Voided Midstream Performed By: #### G LULS #### Point of Care testing , Urobilinogen,Urine Normal Normal Normal [facility] Comment on above: Order Comment: Name Collection Type:: Clean-Voided Midstream Performed By: #### G LULS #### Point of Care testing , WBC,Urine 5-9 High 0-4 [facility] Comment on above: Order Comment: Name Collection Type:: Clean-Voided Midstream Performed By: #### G LULS #### Point of Care testing , ECG 12 lead ECGon 11-23-2024 ECG 12 lead ECG [facility] Main [address] [address] Electrocardiograph Report Signed Patient: Aislinn Wheeler MR#: [id number] [birth year] : 1960 Acct:[id number] Age/Sex: 64 / F ADM Date: 11/23/24 Loc: Room: [address] [place] [address] Type: ADM IN Attending Dr: Diane Smith [...] Inferior leads Confirmed by JR LAYNE DO ([id number]) on 11/23/2024 7:14:08 PM Referred By: Electronically Signed By: JR LAYNE DO Transcribed By: MUS Signed By Jr Layne DO 11/23 191 Normal [facility] Eosinophils Auto (Bld) [#/Vo l]Ordered By: rJ Layne on 11-23-2024 Eosinophils (Bld) [#/Vol] Automated eosinophil count 0.0-0.45 [facility] Eosinophils/100 WBC Auto (Bl d)Ordered By: Jr Layne on 11-23-2024 Eosinophils/100 WBC (Bld) Automated eosinophil % . [facility] Epithelial cells.squamous [# /area] in Urine sediment by Automated countOrdered By: Jr Layne on 11-23-2024 Epithelial cells.squamous Auto (Urine sed) [#/Area] Epithelial cells.squamous [#/area] in Urine sediment by Automated count 0-2 [facility] Epithelial cells.squamous Auto (Urine sed) [#/Area] 1-2 [HPF] 0-2 [facility] Erythrocyte Sedimentation Ra sam 11-23-2024 ESR (Bld) [Velocity] 66 mm/h High 0-29 [facility] Comment on above: Result Comment: PERF ORMED BY: [facility] [address] [place] [address] PATHOLOGIST POWER TONG OPERATOR NICK MOHR M.D. Performed By: #### H BSAB, HBCAB, HEPACUTE #### [facility] , Erythrocyte distribution wid th Auto (RBC) [Ratio]Ordered By: Jr Layne on 11-23-2024 Erythrocyte distribution width (RBC) [Ratio] Erythrocyte distribution width [Ratio] by Automated count 11.9-15.3 [facility] Erythrocyte sedimentation ra te by Photometric methodOrdered By: Diane Smith on 11-23-2024 ESR Photometric method (Bld) [Velocity] Erythrocyte sedimentation rate by Photometric method High 0-29 [facility] ESR Photometric method (Bld) [Velocity] 66 mm/hr High 0-29 [facility] Erythrocytes [#/area] in Uri ne sediment by Automated countOrdered By: Jr Layne on 11-23-2024 RBC Auto (Urine sed) [#/Area] Erythrocytes [#/area] in Urine sediment by Automated count 0-4 [facility] RBC Auto (Urine sed) [#/Area] 1-2 [HPF] 0-4 [facility] Globulin Calc (S) [Mass/Vol] Ordered By: Jr Layne on 11-23-2024 Globulin (S) [Mass/Vol] Serum globulin measurement by calculation (mass/volume) [facility] Glucose Poct Glucometerson 0 11-23-2024 Glucose [Mass/Vol] 122 mg/dL Normal [facility] Comment on above: Result Comment: [facility] Glucose Reference Range is dependent on time and content of last meal. Glucose of more than 200 mg/dL in a nonstressed, ambulatory subject supports the diagnosis of Diabetes Mellitus. PERFORMED BY: [place] [address] PATHOLOGIST POWER TONG OPERATOR NICK MOHR M.D. Performed By: #### D IFF CBC, BMP #### [address] Glucose [Mass/volume] in Ser um or PlasmaOrdered By: Jr Layne on 11-23-2024 Glucose [Mass/Vol] Glucose [Mass/volume ] in Serum or Plasma High 70-100 [facility] Comment on above: ADA recommended refe rence rangeRandom Glucose Reference Range is dependent on time and content of last meal. Glucose of more than 200 mg/dL in a nonstressed, ambulatory subject supports the diagnosis of Diabetes Mellitus. Glucose [Mass/volume] in Uri ne by Test stripOrdered By: Jr Layne on 11-23-2024 Glucose Test strip (U) [Mass/Vol] Glucose [Mass/volume] in Urine by Test strip [facility] Normal [facility] Glucose Test strip (U) [Mass/Vol] 500 mg/dL High Normal [facility] Hematocrit Auto (Bld) [Volum e fraction]Ordered By: Jr Layne on 11-23-2024 Hematocrit (Bld) [Volume fraction] Hematocrit [Volume Fraction] of Blood by Automated count Low 34.0-46.4 [facility] Hemoglobin Test strip Ql (U) Ordered By: Jr Layne on 11-23-2024 Hemoglobin Ql (U) Hemoglobin [Presence ] in Urine by Test strip Negative [facility] Hemoglobin Ql (U) Negative Negative [facility] Hemoglobin [Mass/volume] in BloodOrdered By: Jr Layne on 11-23-2024 Hemoglobin (Bld) [Mass/Vol] Hemoglobin [Mass/volume] in Blood Low 11.8-15.4 [facility] Hyaline casts [#/area] in Ur ine sediment by Automated countOrdered By: Jr Layne on 11-23-2024 Hyaline casts Auto (Urine sed) [#/Area] Hyaline casts [#/area] in Urine sediment by Automated count 0-8 [facility] Hyaline casts Auto (Urine sed) [#/Area] None [LPF] 0-8 [facility] INR in Platelet poor plasma by Coagulation assayOrdered By: Jr Lyane on 11-23-2024 INR Coag (PPP) [Relative time] INR in Platelet poor plasma by Coagulation assay [facility] Comment on above: INR Therapeutic Rang e [...] Coag (PPP) [Relative time] 0.9 {INR} Normal [facility] Comment on above: INR Therapeutic Rang e [...] heart valves: 3 - 4.5 PERFORMED BY: [place] [address] [place] [address] PATHOLOGIST POWER TONG OPERATOR NICK MOHR M.D. Performed By: #### G LULS #### Point of Care testing , Ketones Test strip Ql (U)Ord ered By: Jr Layne on 11-23-2024 Ketones Ql (U) Ketones [Presence] i n Urine by Test strip Negative [facility] Ketones [Presence] in Urine by Test stripOrdered By: Jr Layne on 11-23-2024 Ketones Ql (U) Negative Normal Negative [facility] Comment on above: Order Comment: Name Collection Type:: Clean-Voided Midstream Performed By: #### G LULS #### Point of Care testing , Leukocyte esterase [Presence ] in Urine by Test stripOrdered By: Jr Layne on 11-23-2024 Leukocyte esterase Test strip Ql (U) Leukocyte esterase [Presence] in Urine by Test strip High Negative [facility] Leukocyte esterase Test strip Ql (U) 2+ High Negative [facility] Comment on above: Order Comment: Name Collection Type:: Clean-Voided Midstream Performed By: #### G LULS #### Point of Care testing , Leukocytes [#/area] in Urine sediment by Automated countOrdered By: Jr Layne on 11-23-2024 WBC Auto (Urine sed) [#/Area] Leukocytes [#/area] in Urine sediment by Automated count High 0-4 [facility] WBC Auto (Urine sed) [#/Area] 5-9 [HPF] High 0-4 [facility] Leukocytes [#/volume] correc madhavi for nucleated erythrocytes in Blood by Automated counOrdered By: Jr Layne on 11-23-2024 WBC corrected for nucl RBC Auto (Bld) [#/Vol] Leukocytes [#/volume] corrected for nucleated erythrocytes in Blood by Automated coun 3.8-11.6 [facility] Lymphocytes Auto (Bld) [#/Vo l]Ordered By: Jr Layne on 11-23-2024 Lymphocytes (Bld) [#/Vol] Lymphocytes [#/volume] in Blood by Automated count 1.00-4.8 [facility] Lymphocytes/100 WBC Auto (Bl d)Ordered By: Jr Layne on 11-23-2024 Lymphocytes/100 WBC (Bld) Lymphocytes/100 leukocytes in Blood by Automated count . [facility] MCH Auto (RBC) [Entitic mass ]Ordered By: Jr Layne on 11-23-2024 MCH (RBC) [Entitic mass] MCH [Entitic mass] by Automated count 24.7-34.3 [facility] MCHC Auto (RBC) [Mass/Vol]Or dered By: Jr Layne on 11-23-2024 MCHC (RBC) [Mass/Vol] MCHC [Mass/volume] by Automated count 32.0-35.0 [facility] MCV Auto (RBC) [Entitic vol] Ordered By: Jr Layne on 11-23-2024 MCV (RBC) [Entitic vol] MCV [Entitic volume] by Automated count Low 80-100 [facility] Magnesiumon 11-23-2024 Magnesium [Mass/Vol] 2.1 mg/dL Normal 1.9-2.7 [facility] Comment on above: Result Comment: PERF ORMED BY: [facility] [address] [place] [address] PATHOLOGIST POWER TONG OPERATOR NICK MOHR M.D. Performed By: #### H BSAB, HBCAB, HEPACUTE #### [facility] , Magnesium [Mass/volume] in S ryan or PlasmaOrdered By: Jr Layne on 11-23-2024 Magnesium [Mass/Vol] Magnesium [Mass/vol ume] in Serum or Plasma 1.9-2.7 [facility] Monocyte distribution width [Entitic volume] in Blood by AutomatedOrdered By: Jr Layne on 11-23-2024 Monocyte distribution width Auto (Bld) [Entitic vol] Monocyte distribution width [Entitic volume] in Blood by Automated 0.00-20.00 [facility] Monocyte distribution width Auto (Bld) [Entitic vol] 18.48 % 0.00-20.00 [facility] Monocytes Auto (Bld) [#/Vol] Ordered By: Jr Layne on 11-23-2024 Monocytes (Bld) [#/Vol] Automated blood monocyte count 0.0-0.8 [facility] Monocytes/100 WBC Auto (Bld) Ordered By: Jr Layne on 11-23-2024 Monocytes/100 WBC (Bld) Automated monocyte % . [facility] Natriuretic peptide B [Mass/ Vol]Ordered By: Jr Layne on 11-23-2024 Natriuretic peptide B (Bld) [Mass/Vol] BNP ser/plas High 5-100 [facility] Neutrophils Auto (Bld) [#/Vo l]Ordered By: Jr Layne on 11-23-2024 Neutrophils (Bld) [#/Vol] Neutrophils [#/volume] in Blood by Automated count 1.8-7.7 [facility] Neutrophils/100 WBC Auto (Bl d)Ordered By: Jr Layne on 11-23-2024 Neutrophils/100 WBC (Bld) Automated neutrophil % . [facility] Nitrite Test strip Ql (U)Ord ered By: Jr Layne on 11-23-2024 Nitrite Ql (U) Nitrite [Presence] i n Urine by Test strip Negative [facility] Nitrite Ql (U) Negative Negative [facility] No Panel InformationOrdered By: rJ Layne on 11-23-2024 Estimated GFR (CKD-EPI) 19.560 mL/Min [facility] Creatinine Clearance (Chem 17.13 [facility] Nucleated erythrocytes [Pres ence] in Blood by Automated countOrdered By: Jr Layne on 11-23-2024 Nucleated RBC Auto Ql (Bld) Nucleated erythrocytes [Presence] in Blood by Automated count 0-0.5 [facility] Platelet mean volume Auto (B ld) [Entitic vol]Ordered By: Jr Layne on 11-23-2024 Platelet mean volume (Bld) [Entitic vol] Platelet mean volume [Entitic volume] in Blood by Automated count 6.3-10.7 [facility] Platelets Auto (Bld) [#/Vol] Ordered By: Jr Layne on 11-23-2024 Platelets (Bld) [#/Vol] Platelets [#/volume] in Blood by Automated count 150-450 [facility] Potassium [Moles/volume] in Serum or PlasmaOrdered By: Jr Layne on 11-23-2024 Potassium [Moles/Vol] Potassium [Moles/v olume] in Serum or Plasma High 3.5-5.1 [facility] Protein Test strip (U) [Mass /Vol]Ordered By: Jr Layne on 11-23-2024 Protein (U) [Mass/Vol] Protein [Mass/volume] in Urine by Test strip High Negative [facility] Protein [Mass/volume] in Ser um or PlasmaOrdered By: Jr Layne on 11-23-2024 Protein [Mass/Vol] Protein [Mass/volume ] in Serum or Plasma 6.4-8.9 [facility] Protein [Mass/volume] in Uri ne by Test stripOrdered By: Jr Layne on 11-23-2024 Protein (U) [Mass/Vol] 100 mg/dL High Negative [facility] Comment on above: Order Comment: Name Collection Type:: Clean-Voided Midstream Performed By: #### G LULS #### Point of Care testing , Prothrombin time (PT)Ordered By: Jr Layne on 11-23-2024 PT Coag (PPP) [Time] Prothrombin time (PT) 9.0- 12.9 [facility] Comment on above: A hematocrit value g reater than 55% may lead to inaccurate results in coagulation testing. Patients having hematocrit values >55% require a special collection tube for coagulation studies. Please contact the laboratory at [phone] for redraw instructions. PT Coag (PPP) [Time] 10.6 s Normal 9.0-12.9 [facility] Comment on above: A hematocrit value g reater than 55% may lead to inaccurate results in coagulation testing. Patients having hematocrit values >55% require a special collection tube for coagulation studies. Please contact the laboratory at [phone] for redraw instructions. Result Comment: A he matocrit value greater than 55% may lead to inaccurate results in coagulation testing. Patients having hematocrit values >55% require a special collection tube for coagulation studies. Please contact the laboratory at [phone] for redraw instructions. Performed By: #### G LULS #### Point of Care testing , RBC Auto (Bld) [#/Vol]Ordere d By: Jr Layne on 11-23-2024 RBC (Bld) [#/Vol] Erythrocytes [#/volu me] in Blood by Automated count 3.60-5.00 [facility] Serum or plasma albumin/glob ulin mass ratioOrdered By: Jr Layne on 11-23-2024 Albumin/Globulin [Mass ratio] Serum or plasma albumin/globulin mass ratio [facility] Serum or plasma anion gap de terminationOrdered By: Jr Layne on 11-23-2024 Anion gap [Moles/Vol] Serum or plasma an ion gap determination 6.0-15.0 [facility] Sodium [Moles/volume] in Ser um or PlasmaOrdered By: Jr Layne on 11-23-2024 Sodium [Moles/Vol] Sodium [Moles/volume ] in Serum or Plasma Low 136-145 [facility] Specific gravity Test strip (U) [Rel density]Ordered By: Jr Layne on 11-23-2024 Specific gravity (U) [Rel density] Specific gravity of Urine by Test strip 1.001-1.030 [facility] Specific gravity (U) [Rel density] 1.010 1.001-1.030 [facility] Troponin I High Sensitivityo n 11-23-2024 Troponin I High Sensitivity 7 Normal 0-15 [facility] Comment on above: Result Comment: The Troponin units of report have been changed to meet the Chest Pain Accreditation requirement, element EC5.M1l2. Troponin units are changed from pg/ml to ng/L. Also, the decimal is removed and results are in whole numbers. PERFORMED BY: [place] [id number] PATHOLOGIST POWER TONG OPERATOR NICK MOHR M.D. Performed By: #### G LULS #### Point of Care testing , Troponin I High Sensitivity 7 Normal 0-15 [facility] Comment on above: Result Comment: The Troponin units of report have been changed to meet the Chest Pain Accreditation requirement, element EC5.M1l2. Troponin units are changed from pg/ml to ng/L. Also, the decimal is removed and results are in whole numbers. PERFORMED BY: [place] [id number] PATHOLOGIST POWER TONG OPERATOR NICK MOHR M.D. Performed By: #### D IFF CBC, BMP #### [address] Troponin I High Sensitivity 6 Normal 0-15 [facility] Comment on above: Result Comment: The Troponin units of report have been changed to meet the Chest Pain Accreditation requirement, element EC5.M1l2. Troponin units are changed from pg/ml to ng/L. Also, the decimal is removed and results are in whole numbers. PERFORMED BY: [phone] PATHOLOGIST POWER TONG OPERATOR NICK MOHR M.D. Performed By: #### H BSAB, HBCAB, HEPACUTE #### [facility] , Troponin I.cardiac [Mass/vol ume] in Serum or Plasma by Detection limit <= 0.01 ng/Ordered By: Diane Smith on 11-23-2024 Troponin I.cardiac DL <= 0.01 ng/mL [Mass/Vol] Troponin I.cardiac [Mass/volume] in Serum or Plasma by Detection limit <= 0.01 ng/ 0-15 [facility] Comment on above: The Troponin units o f report have been changed to meet the Chest Pain Accreditation requirement, element EC5.M1l2. Troponin units are changed from pg/ml to ng/L. Also, the decimal is removed and results are in whole numbers. Troponin I.cardiac DL <= 0.01 ng/mL [Mass/Vol] Troponin I.cardiac [Mass/volume] in Serum or Plasma by Detection limit <= 0.01 ng/ 015 [facility] Comment on above: The Troponin units o [...] DL <= 0.01 ng/mL [Mass/Vol] 7 ng/L 0 [facility] Comment on above: The Troponin units o [...] [Mass/volume] in Serum or Plasma High 7-25 [facility] Urine Cultureon 11-23-2024 Bacteria identified Cx Nom (U) No Growth 2 Days PERFORMED BY: [facility] [address] [place] [address] PATHOLOGIST POWER TONG OPERATOR NICK MOHR M.D. Normal [facility] Comment on above: Performed By: #### G LUCARLOS MANUEL #### Point of Care testing , Urine cultureOrdered By: Cora Layne on 11-23-2024 Bacteria identified Cx Nom (U) Urine culture [facility] Bacteria identified Cx Nom (U) No Growth 2 Days [facility] Urobilinogen Test strip (U) [Mass/Vol]Ordered By: Jr Layne on 11-23-2024 Urobilinogen (U) [Mass/Vol] Urobilinogen [Mass/volume] in Urine by Test strip Normal [facility] Urobilinogen (U) [Mass/Vol] Normal mg/dL Normal [facility] WBC Auto (Bld) [#/Vol]Ordere d By: Jr Layne on 11-23-2024 WBC (Bld) [#/Vol] Leukocytes [#/volume ] in Blood by Automated count 3.8-11.6 [facility] X-ray reportOrdered By: Dean Potter on 11-23-2024 Study report [facility] [place] [address] XRay Report Signed Patient: Aislinn Wheeler MR#: [id number] : 1960 Acct:[id number] Age/Sex: 64 / F ADM Date: 5 Loc: ER Room: Type: [facility] ER Attending Dr: Copies to: Jr Layne [...] Raf Potter M.D.11/23/2024 4:55 PM Dictation Location: [place] [address] Transcribed By: [facility] 11/23/241654 Dictated By: Raf Potter MD 11/23/241651 Signed By: 11/23/241654 [facility] Work Phone: XR chest 1V portableon 11-23 XR chest 1V portable [address] [address] XRay Report Signed Patient: Aislinn Wheeler MR#: [id number] : 1960 Acct:[id number] Age/Sex: 64 / F ADM Date: 11/23/24 Loc: ER Room: Type: [facility] ER Attending Dr: Copies to: Jr Layne [...] Raf Potter M.D.11/23/2024 4:55 PM Dictation Location: [place] [address] Transcribed By: [facility] 11/23/241654 Dictated By: Raf Potter MD 11/23/241651 Signed By: 11/23/24 165 Normal [facility] pH Test strip (U)Ordered By: Jr Layne on 11-23-2024 pH (U) pH of Urine by Test strip 5.0-9.0 [facility] pH of Urine by Test stripOrd ered By: Jr Layne on 11-23-2024 pH (U) 6.0 [pH] Normal 5.0-9.0 [facility] Comment on above: Order Comment: Name Collection Type:: Clean-Voided Midstream Performed By: #### G LULS #### Point of Care testing , ECG 12-LEADon 11-22-2024 [place] [address] Electrocardiograph Report Signed Patient: AISLINN WHEELER MR#: [id number] : 1960 Acct:[id number] Age/Sex: 64 / F ADM Date: 11/21/24 Loc: [email or web address] Attending Dr: Ramon Enrique D.P.M. Ordering Physician: Ramon Enrique D.P.M. 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 Measurements Intervals Dyke Rate: 57 P: 52 RI: 183 QRS: 45 QRSD: 82 T: 54 QT: 452 QTc: 441 Interpretive Statements SINUS BRADYCARDIA Otherwise normal ECG Compared to ECG 09/04/2024 13:57:55 No significant change Electronically Signed On 11-22-2024 15:11:41 EDT by GALO MUKHERJEE M.D. Dictated By: GALO MUKHERJEE Signed By: 11/22/24 1511 DD/ 1131 TD/TT: Professor Of Political Science: [facility] Radiology, Radiologi MD doris - 11/22/2024 [place] [address] Electrocardiograph Report Signed Patient: AISLINN WHEELER MR#: [id number] : 1960 Acct:[id number] Age/Sex: 64 / F ADM Date: 11/21/24 Loc: [facility] [[email or web address]] Attending Dr: Ramon Enrique D.P.M. Ordering Physician: Ramon Enrique D.P.M. 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 Measurements Intervals Dyke Rate: 57 P: 52 RI: 183 QRS: 45 QRSD: 82 T: 54 QT: 452 QTc: 441 Interpretive Statements SINUS BRADYCARDIA Otherwise normal ECG Compared to ECG 09/04/2024 13:57:55 No significant change Electronically Signed On 11-22-2024 15:11:41 EDT by GALO MUKHERJEE M.D. Dictated By: GALO MUKHERJEE Signed By: 11/22/24 1511 DD/ 1131 TD/TT: Professor Of Political Science: [facility] ECG 12-LEADOrdered By: Radio logist Radiology on 11-22-2024 [facility] Work Phone: ALL CBC WITH AUTO DIFFon BASOPHILS ABSOLUTE AUTO 0.1 [facility] Basophils/100 WBC (Bld) 0.6 % 0.2 - 2.0 % [facility] Eosinophils/100 WBC (Bld) 1.9 % 0.9 - 7.0 % [facility] Erythrocyte distribution width (RBC) [Ratio] 13.4 % 11.0 - 15.0 % [facility] Hematocrit (Bld) [Volume fraction] 33.8 % Low 36.0 - 48.0 % [facility] Hemoglobin (Bld) [Mass/Vol] 10.9 g/dL Low 12.0 - 16.0 g/dL [facility] IMMATURE GRANULOCYTES ABS AUTO 0.05 High [facility] Immature granulocytes/100 WBC (Bld) 0.6 % High 0.0 - 0.5 % [facility] Interpretation and review of laboratory results Abnormal [facility] LYMPHOCYTES ABSOLUTE AUTO 2.2 [facility] Lymphocytes/100 WBC (Bld) 26.3 % 20.5 - 60.0 % [facility] MCH (RBC) [Entitic mass] 26 pg Low 26.7 - 34.0 pg [facility] MCHC (RBC) [Mass/Vol] 32.2 g/dL 29.9 - 35.2 g/dL [facility] MCV (RBC) [Entitic vol] 80.7 fL Low 81.0 - 99.0 fL [facility] MONOCYTES ABSOLUTE AUTO 0.5 [facility] Monocytes/100 WBC (Bld) 5.6 % 1.7 - 12.0 % [facility] NEUTROPHILS ABSOLUTE AUTO 5.5 [facility] Neutrophils/100 WBC (Bld) 65 % 43.0 - 75.0 % [facility] Platelet mean volume (Bld) [Entitic vol] 10.7 fL 9.5 - 13.5 fL [facility] EO # 0.2 [facility] PLT [address] [facility] RBC 4.19 Low [facility] WBC 8.4 [facility] ECG 12-LEADon 11-21-2024 Radiology Study observation (narrative) [facility] HbA1c (Bld) [Mass fraction]o n 11-18-2024 Interpretation and review of laboratory results Abnormal [facility] Laboratory - Hematology and Cell countson 11-18-2024 HbA1c (Bld) [Mass fraction] 9.40 % [facility] XR FOOT RT MIN 3Von 11-15-19 [place] [address] XRay Report Signed Patient: AISLINN WHEELER MR#: [id number] : 1960 Acct:[id number] Age/Sex: 64 / F ADM Date: 11/14/24 Loc: [facility] Attending Dr: Agusto Olmstead NP Ordering Physician: Agusto Olmstead NP Date of Service: 11/14/24 Procedure(s): XR foot RT min 3V Accession Number(s): [id number] cc: Agusto Olmstead NP [place] [address] Patient Name: AISLINN WHEELER MRN: [facility]:[id number] date: 1960 Sex: F Assigned Patient Location: [facility] Current Patient Location: [facility] Accession/Order Number: [id number] Exam Date: 11/14/2024 16:41 Report Date: 11/14/2024 [...] White Jr., D.O.11/14/2024 4:45 PM Dictation Location: [place] [address] Electronically authenticated by: [id number] Y Date: 11/14/2024 16:45 Dictated By: Kyree White M.D. Signed By: 11/14/241646 DD/ 44 TD/TT: Professor Of Political Science: [facility] Radiology, Radiologi MD doris - 11/14/2024 [place] [address] XRay Report Signed Patient: AISLINN WHEELER MR#: [id number] : 1960 Acct:[id number] Age/Sex: 64 / F ADM Date: 11/14/24 Loc: [facility] Attending Dr: Agusto Olmstead NP Ordering Physician: Agusto Olmstead NP Date of Service: 11/14/24 Procedure(s): XR foot RT min 3V Accession Number(s): [id number] cc: Agusto Olmstead NP The [place] [id number] Patient Name: AISLINN WHEELER MRN: [facility]:[id number] date: 1960 Sex: F Assigned Patient Location: [facility] Current Patient Location: [facility] Accession/Order Number: [id number] Exam Date: 11/14/2024 16:41 Report Date: 11/14/2024 [...] White Jr., D.O.11/14/2024 4:45 PM Dictation Location: [facility] Electronically authenticated by: [id number] Y Date: 11/14/2024 16:45 Dictated By: Kyree White M.D. Signed By: 11/14/241646 DD/ 44 TD/TT: Professor Of Political Science: [facility] Radiology Study observation (narrative) [facility] XR FOOT RT MIN 3VOrdered By: Radiologist Radiology on 11-14-2024 [facility] Work Phone: Basic Metabolic Panelon 08-21 Anion gap [Moles/Vol] 13.4 mmol/L Normal 6.0-15.0 [facility] Comment on above: Performed By: #### H BSAB, HBCAB, HEPACUTE #### [facility] , Calcium [Mass/Vol] 8.5 mg/dL Low 8.6-10.[address] [facility] Comment on above: Performed By: #### H BSAB, HBCAB, HEPACUTE #### [facility] , Chloride [Moles/Vol] 102 mmol/L Normal 98-107 [facility] Comment on above: Performed By: #### H BSAB, HBCAB, HEPACUTE #### [facility] , CO2 [Moles/Vol] 27.3 mmol/L Normal 21.0-31.0 [facility] Comment on above: Performed By: #### H BSAB, HBCAB, HEPACUTE #### [facility] , Creatinine [Mass/Vol] 3.08 mg/dL High 0.60-1.20 [facility] Comment on above: Performed By: #### H BSAB, HBCAB, HEPACUTE #### [facility] , Creatinine Clr Calc Pharmacy 13.95 Normal [facility] Comment on above: Result Comment: PERF ORMED BY: [facility] [place] [address] PATHOLOGIST POWER TONG OPERATOR NICK MOHR M.D. Performed By: #### H BSAB, HBCAB, HEPACUTE #### [facility] , Estimated GFR 16.109 mL/Min Normal [facility] Comment on above: Performed By: #### H BSAB, HBCAB, HEPACUTE #### [facility] , Glucose [Mass/Vol] 151 mg/dL High 70-[address] [facility] Comment on above: Result Comment: [place] om Glucose Reference Range is dependent on time and content of last meal. Glucose of more than 200 mg/dL in a nonstressed, ambulatory subject supports the diagnosis of Diabetes Mellitus. ADA recommended reference range Performed By: #### H BSAB, HBCAB, HEPACUTE #### [facility] , Potassium [Moles/Vol] 4.7 mmol/L Normal 3.5-5.1 [facility] Comment on above: Performed By: #### H BSAB, HBCAB, HEPACUTE #### [facility] , Sodium [Moles/Vol] 138 mmol/L Significant change down 136-145 [facility] Comment on above: Performed By: #### H BSAB, HBCAB, HEPACUTE #### [facility] , Urea nitrogen [Mass/Vol] 53 mg/dL High 7-25 [facility] Comment on above: Performed By: #### H BSAB, HBCAB, HEPACUTE #### [facility] , Calcium [Mass/volume] in Ser um or PlasmaOrdered By: Gilmer Tai on 09-08-2024 Calcium [Mass/Vol] Calcium [Mass/volume ] in Serum or Plasma Low 8.6-10.3 [facility] Carbon dioxide, total [Moles /volume] in Serum or PlasmaOrdered By: Gilmer Tai on 09-08-2024 CO2 [Moles/Vol] Carbon dioxide, tota l [Moles/volume] in Serum or Plasma 21.0-31.0 [facility] Chloride [Moles/volume] in S ryan or PlasmaOrdered By: Gilmer Tai on 09-08-2024 Chloride [Moles/Vol] Chloride [Moles/vol ume] in Serum or Plasma 98-107 [facility] Creatinine [Mass/volume] in Serum or PlasmaOrdered By: Gilmer Tai on 09-08-2024 Creatinine [Mass/Vol] Creatinine [Mass/v olume] in Serum or Plasma High 0.60-1.20 [facility] Glucose Glucometer (BldC) [M ass/Vol]Ordered By: Gilmer Tai on 09-08-2024 Glucose [Mass/Vol] Capillary blood gluc ose measurement by glucometer (mass/volume) [facility] Comment on above: Random Glucose Refer ence Range is dependent on time and content of last meal. Glucose of more than 200 mg/dL in a nonstressed, ambulatory subject supports the diagnosis of Diabetes Mellitus. Glucose Poct Glucometerson 0 09-08-2024 Commemt1 Glu2: Cleaned Meter Normal [facility] Comment on above: Result Comment: PERF ORMED BY: [facility] [address] [place] [address] PATHOLOGIST POWER TONG OPERATOR NICK MOHR M.D. Performed By: #### G LULS #### Point of Care testing , Glucose [Mass/Vol] 311 mg/dL Normal [facility] Comment on above: Result Comment: [place] [facility] Glucose Reference Range is dependent on [...] ] in Serum or Plasma High 70-100 [facility] Comment on above: ADA recommended refe rence rangeRandom Glucose Reference Range is dependent on time and content of last meal. Glucose of more than 200 mg/dL in a nonstressed, ambulatory subject supports the diagnosis of Diabetes Mellitus. No Panel InformationOrdered By: Gilmer Tai on 09-08-2024 Bedside Glucose Comment Glu2: cleaned meter [facility] Estimated GFR (CKD-EPI) 16.109 mL/Min [facility] Creatinine Clearance (Chem 13.95 [facility] Potassium [Moles/volume] in Serum or PlasmaOrdered By: Gilmer Tai on 09-08-2024 Potassium [Moles/Vol] Potassium [Moles/v olume] in Serum or Plasma 3.5-5.1 [facility] Serum or plasma anion gap de terminationOrdered By: Gilmer Tai on 09-08-2024 Anion gap [Moles/Vol] Serum or plasma an ion gap determination 6.0-15.0 [facility] Sodium [Moles/volume] in Ser um or PlasmaOrdered By: Gilmer Tai on 09-08-2024 Sodium [Moles/Vol] Sodium [Moles/volume ] in Serum or Plasma Significant change down 136-145 [facility] Comment on above: Delta: 132 on -0600 Urea nitrogen [Mass/volume] in Serum or PlasmaOrdered By: Gilmer Tai on 09-08-2024 Urea nitrogen [Mass/Vol] Urea nitrogen [Mass/volume] in Serum or Plasma High 7-25 [facility] Alanine aminotransferase [En zymatic activity/volume] in Serum or PlasmaOrdered By: Alejandro Vallejo on 09-07-2024 ALT [Catalytic activity/Vol] Alanine aminotransferase [Enzymatic activity/volume] in Serum or Plasma 7-52 [facility] Albumin [Mass/volume] in Ser um or Plasma by Bromocresol green (BCG) dye binding methoOrdered By: Alejandro Vallejo on 09-07-2024 Albumin BCG dye [Mass/Vol] Albumin [Mass/volume] in Serum or Plasma by Bromocresol green (BCG) dye binding metho Low 3.5-5.7 [facility] Alkaline phosphatase [Enzyma tic activity/volume] in Serum or PlasmaOrdered By: Alejandro Vallejo on 09-07-2024 ALP [Catalytic activity/Vol] Alkaline phosphatase [Enzymatic activity/volume] in Serum or Plasma 34-104 [facility] Aspartate aminotransferase [ Enzymatic activity/volume] in Serum or PlasmaOrdered By: Alejandro Vallejo on 09-07-2024 AST [Catalytic activity/Vol] Aspartate aminotransferase [Enzymatic activity/volume] in Serum or Plasma 13-39 [facility] Basophils Auto (Bld) [#/Vol] Ordered By: Alejandro Vallejo on 09-07-2024 Basophils (Bld) [#/Vol] Automated basophil count 0.0-0.2 [facility] Basophils/100 WBC Auto (Bld) Ordered By: Alejandro Vallejo on 09-07-2024 Basophils/100 WBC (Bld) Automated basophil % . [facility] Bilirubin.total [Mass/volume ] in Serum or PlasmaOrdered By: Alejandro Vallejo on 09-07-2024 Bilirubin [Mass/Vol] Bilirubin.total [Mass/volume] in Serum or Plasma Low 0.3-1.0 [facility] Complete Blood Count Auto Di ffon 09-07-2024 Basophils (Bld) [#/Vol] 0.0 10*3/uL Normal 0.0-0.2 [facility] Comment on above: Result Comment: PERF ORMED BY: [facility] [address] [place] [address] PATHOLOGIST POWER TONG OPERATOR NICK MOHR M.D. Performed By: #### G LULS #### Point of Care testing , Basophils/100 WBC (Bld) 0.5 % Normal . [facility] Comment on above: Performed By: #### G LULS #### Point of Care testing , Eosinophils (Bld) [#/Vol] 0.2 10*3/uL Normal 0.0-0.45 [facility] Comment on above: Performed By: #### G LULS #### Point of Care testing , Eosinophils/100 WBC (Bld) 2.9 % Normal . [facility] Comment on above: Performed By: #### G LULS #### Point of Care testing , Erythrocyte distribution width (RBC) [Ratio] 14.0 % Normal 11.9-15.3 [facility] Comment on above: Performed By: #### G LULS #### Point of Care testing , Hematocrit (Bld) [Volume fraction] 27.2 % Low 34.0-46.4 [facility] Comment on above: Performed By: #### G LULS #### Point of Care testing , Hemoglobin (Bld) [Mass/Vol] 9.2 g/dL Low 11.8-15.4 [facility] Comment on above: Performed By: #### G LULS #### Point of Care testing , Lymphocytes (Bld) [#/Vol] 2.0 10*3/uL Normal 1.00-4.8 [facility] Comment on above: Performed By: #### G LULS #### Point of Care testing , Lymphocytes/100 WBC (Bld) 24.8 % Normal . [facility] Comment on above: Performed By: #### G LULS #### Point of Care testing , MCH (RBC) [Entitic mass] 26.6 pg Normal 24.7-34.3 [facility] Comment on above: Performed By: #### G LULS #### Point of Care testing , MCV (RBC) [Entitic vol] 79.2 fL Low 80-100 [facility] Comment on above: Performed By: #### G LULS #### Point of Care testing , Mean Corpuscular HGB Conc 33.7 g/dL Normal 32.0-35.0 [facility] Comment on above: Performed By: #### G LULS #### Point of Care testing , Monocytes (Bld) [#/Vol] 0.5 10*3/uL Normal 0.0-0.8 [facility] Comment on above: Performed By: #### G LULS #### Point of Care testing , Monocytes/100 WBC (Bld) 6.2 % Normal . [facility] Comment on above: Performed By: #### G LULS #### Point of Care testing , Neutrophils (Bld) [#/Vol] 5.4 10*3/uL Normal 1.8-7.7 [facility] Comment on above: Performed By: #### G LULS #### Point of Care testing , Neutrophils/100 WBC (Bld) 65.6 % Normal . [facility] Comment on above: Performed By: #### G LULS #### Point of Care testing , NRBC% 0.1 /100{WBC} Normal 0-0.5 [facility] Comment on above: Performed By: #### G LULS #### Point of Care testing , Platelet mean volume (Bld) [Entitic vol] 9.4 fL Normal 6.3-10.7 [facility] Comment on above: Performed By: #### G LULS #### Point of Care testing , Platelets (Bld) [#/Vol] 221 10*3/uL Normal 150-450 [facility] Comment on above: Performed By: #### G LULS #### Point of Care testing , RBC (Bld) [#/Vol] 3.44 10*6/uL Low 3.60-5.00 [facility] Comment on above: Performed By: #### G LULS #### Point of Care testing , WBC (Bld) [#/Vol] 8.2 10*3/uL Normal 3.8-11.[address] [facility] Comment on above: Performed By: #### G LULS #### Point of Care testing , Comprehensive Metabolic Pane krystin 09-07-2024 Albumin [Mass/Vol] 3.0 g/dL Low 3.5-5.[address] [facility] Comment on above: Performed By: #### G LULS #### Point of Care testing , Albumin/Globulin [Mass ratio] 0.8 {ratio} Normal [facility] Comment on above: Performed By: #### G LULS #### Point of Care testing , ALP [Catalytic activity/Vol] 77 U/L Normal 34-104 [facility] Comment on above: Performed By: #### G LULS #### Point of Care testing , ALT [Catalytic activity/Vol] 9 U/L Normal 7-52 [facility] Comment on above: Performed By: #### G LULS #### Point of Care testing , Anion gap [Moles/Vol] 11.3 mmol/L Normal 6.0-15.0 [facility] Comment on above: Performed By: #### G LULS #### Point of Care testing , AST [Catalytic activity/Vol] 14 U/L Normal 13-39 [facility] Comment on above: Performed By: #### G LULS #### Point of Care testing , Bilirubin [Mass/Vol] 0.2 mg/dL Low 0.3-1.0 [facility] Comment on above: Performed By: #### G LULS #### Point of Care testing , Calcium [Mass/Vol] 8.3 mg/dL Low 8.6-10.[address] [facility] Comment on above: Performed By: #### G LULS #### Point of Care testing , Chloride [Moles/Vol] 100 mmol/L Normal 98-107 [facility] Comment on above: Performed By: #### G LULS #### Point of Care testing , CO2 [Moles/Vol] 25.8 mmol/L Normal 21.0-31.0 [facility] Comment on above: Performed By: #### G LULS #### Point of Care testing , Creatinine [Mass/Vol] 3.09 mg/dL High 0.60-1.20 [facility] Comment on above: Performed By: #### G LULS #### Point of Care testing , Creatinine Clr Calc Pharmacy 14.45 Normal [facility] Comment on above: Result Comment: PERF ORMED BY: [place] [address] [place] [address] PATHOLOGIST POWER TONG OPERATOR NICK MOHR M.D. Performed By: #### G LULS #### Point of Care testing , Estimated GFR 16.046 mL/Min Normal [facility] Comment on above: Performed By: #### G LULS #### Point of Care testing , Globulin (S) [Mass/Vol] 3.8 g/dL Normal [facility] Comment on above: Performed By: #### G LULS #### Point of Care testing , Glucose [Mass/Vol] 155 mg/dL High 70-[address] [facility] Comment on above: Result Comment: [place] Glucose Reference Range is dependent on time and content of last meal. Glucose of more than 200 mg/dL in a nonstressed, ambulatory subject supports the diagnosis of Diabetes Mellitus. ADA recommended reference range Performed By: #### G LULS #### Point of Care testing , Potassium [Moles/Vol] 5.1 mmol/L Normal 3.5-5.1 [facility] Comment on above: Performed By: #### G LULS #### Point of Care testing , Protein [Mass/Vol] 6.8 g/dL Normal 6.4-8.[address] [facility] Comment on above: Performed By: #### G LULS #### Point of Care testing , Sodium [Moles/Vol] 132 mmol/L Low 136-[address] [facility] Comment on above: Performed By: #### G LULS #### Point of Care testing , Urea nitrogen [Mass/Vol] 51 mg/dL High 7-25 [facility] Comment on above: Performed By: #### G LULS #### Point of Care testing , Eosinophils Auto (Bld) [#/Vo l]Ordered By: Alejandro Vallejo on 09-07-2024 Eosinophils (Bld) [#/Vol] Automated eosinophil count 0.0-0.45 [facility] Eosinophils/100 WBC Auto (Bl d)Ordered By: Alejandro Vallejo on 09-07-2024 Eosinophils/100 WBC (Bld) Automated eosinophil % . [facility] Erythrocyte distribution wid th Auto (RBC) [Ratio]Ordered By: Alejandro Vallejo on 09-07-2024 Erythrocyte distribution width (RBC) [Ratio] Erythrocyte distribution width [Ratio] by Automated count 11.9-15.3 [facility] Globulin Calc (S) [Mass/Vol] Ordered By: Alejandro Vallejo on 09-07-2024 Globulin (S) [Mass/Vol] Serum globulin measurement by calculation (mass/volume) [facility] Glucose Poct Glucometerson 0 09-07-2024 Glucose [Mass/Vol] 195 mg/dL Normal [facility] Comment on above: Result Comment: [place] [facility] Glucose Reference Range is dependent on time and content of last meal. Glucose of more than 200 mg/dL in a nonstressed, ambulatory subject supports the diagnosis of Diabetes Mellitus. PERFORMED BY: [place] [address] PATHOLOGIST POWER TONG OPERATOR NICK MOHR M.D. Performed By: #### D IFF CBC, BMP #### [address] Glucose [Mass/Vol] 203 mg/dL Normal [facility] Comment on above: Result Comment: [place] Glucose Reference Range is dependent on time and content of last meal. Glucose of more than 200 mg/dL in a nonstressed, ambulatory subject supports the diagnosis of Diabetes Mellitus. PERFORMED BY: [place] [address] PATHOLOGIST POWER TONG OPERATOR NICK MOHR M.D. Performed By: #### G LULS #### Point of Care testing , Glucose [Mass/Vol] 153 mg/dL Normal [facility] Comment on above: Result Comment: [place] Glucose Reference Range is dependent on time and content of last meal. Glucose of more than 200 mg/dL in a nonstressed, ambulatory subject supports the diagnosis of Diabetes Mellitus. PERFORMED BY: [place] [address] PATHOLOGIST POWER TONG OPERATOR NICK MOHR M.D. Performed By: #### D IFF CBC, BMP #### [place] [id number] [facility] Hematocrit Auto (Bld) [Volum e fraction]Ordered By: Alejandro Vallejo on 09-07-2024 Hematocrit (Bld) [Volume fraction] Hematocrit [Volume Fraction] of Blood by Automated count Low 34.0-46.4 [facility] Hemoglobin [Mass/volume] in BloodOrdered By: Alejandro Vallejo on 09-07-2024 Hemoglobin (Bld) [Mass/Vol] Hemoglobin [Mass/volume] in Blood Low 11.8-15.4 [facility] Leukocytes [#/volume] correc madhavi for nucleated erythrocytes in Blood by Automated counOrdered By: Alejandro Vallejo on 09-07-2024 WBC corrected for nucl RBC Auto (Bld) [#/Vol] Leukocytes [#/volume] corrected for nucleated erythrocytes in Blood by Automated coun 3.8-11.6 [facility] Lymphocytes Auto (Bld) [#/Vo l]Ordered By: Alejandro Vallejo on 09-07-2024 Lymphocytes (Bld) [#/Vol] Lymphocytes [#/volume] in Blood by Automated count 1.00-4.8 [facility] Lymphocytes/100 WBC Auto (Bl d)Ordered By: Alejandro Vallejo on 09-07-2024 Lymphocytes/100 WBC (Bld) Lymphocytes/100 leukocytes in Blood by Automated count . [facility] MCH Auto (RBC) [Entitic mass ]Ordered By: Alejandro Vallejo on 09-07-2024 MCH (RBC) [Entitic mass] MCH [Entitic mass] by Automated count 24.7-34.3 [facility] MCHC Auto (RBC) [Mass/Vol]Or dered By: Alejandro Vallejo on 09-07-2024 MCHC (RBC) [Mass/Vol] MCHC [Mass/volume] by Automated count 32.0-35.0 [facility] MCV Auto (RBC) [Entitic vol] Ordered By: Alejandro Vallejo on 09-07-2024 MCV (RBC) [Entitic vol] MCV [Entitic volume] by Automated count Low 80-100 [facility] Monocytes Auto (Bld) [#/Vol] Ordered By: Alejandro Vallejo on 09-07-2024 Monocytes (Bld) [#/Vol] Automated blood monocyte count 0.0-0.8 [facility] Monocytes/100 WBC Auto (Bld) Ordered By: Alejandro Vallejo on 09-07-2024 Monocytes/100 WBC (Bld) Automated monocyte % . [facility] Neutrophils Auto (Bld) [#/Vo l]Ordered By: Alejandro Vallejo on 09-07-2024 Neutrophils (Bld) [#/Vol] Neutrophils [#/volume] in Blood by Automated count 1.8-7.7 [facility] Neutrophils/100 WBC Auto (Bl d)Ordered By: Alejandro Vallejo on 09-07-2024 Neutrophils/100 WBC (Bld) Automated neutrophil % . [facility] Nucleated erythrocytes [Pres ence] in Blood by Automated countOrdered By: Alejandro Valeljo on 09-07-2024 Nucleated RBC Auto Ql (Bld) Nucleated erythrocytes [Presence] in Blood by Automated count 0-0.5 [facility] Platelet mean volume Auto (B ld) [Entitic vol]Ordered By: Alejandro Vallejo on 09-07-2024 Platelet mean volume (Bld) [Entitic vol] Platelet mean volume [Entitic volume] in Blood by Automated count 6.3-10.7 [facility] Platelets Auto (Bld) [#/Vol] Ordered By: Alejandro Vallejo on 09-07-2024 Platelets (Bld) [#/Vol] Platelets [#/volume] in Blood by Automated count 150-450 [facility] Protein [Mass/volume] in Ser um or PlasmaOrdered By: Alejandro Vallejo on 09-07-2024 Protein [Mass/Vol] Protein [Mass/volume ] in Serum or Plasma 6.4-8.9 [facility] RBC Auto (Bld) [#/Vol]Ordere d By: Alejandro Vallejo on 09-07-2024 RBC (Bld) [#/Vol] Erythrocytes [#/volu me] in Blood by Automated count Low 3.60-5.00 [facility] Serum or plasma albumin/glob ulin mass ratioOrdered By: Alejandro Vallejo on 09-07-2024 Albumin/Globulin [Mass ratio] Serum or plasma albumin/globulin mass ratio [facility] WBC Auto (Bld) [#/Vol]Ordere d By: Alejandro Vallejo on 09-07-2024 WBC (Bld) [#/Vol] Leukocytes [#/volume ] in Blood by Automated count 3.8-11.6 [facility] Complete Blood Count Auto Di ffon 09-06-2024 Basophils (Bld) [#/Vol] 0.1 10*3/uL Normal 0.0-0.2 [facility] Comment on above: Result Comment: PERF ORMED BY: [facility] [place] [address] PATHOLOGIST POWER TONG OPERATOR NICK MOHR M.D. Performed By: #### G LULS #### Point of Care testing , Basophils/100 WBC (Bld) 0.8 % Normal . [facility] Comment on above: Performed By: #### G LULS #### Point of Care testing , Eosinophils (Bld) [#/Vol] 0.2 10*3/uL Normal 0.0-0.45 [facility] Comment on above: Performed By: #### G LULS #### Point of Care testing , Eosinophils/100 WBC (Bld) 1.3 % Normal . [facility] Comment on above: Performed By: #### G LULS #### Point of Care testing , Erythrocyte distribution width (RBC) [Ratio] 14.1 % Normal 11.9-15.3 [facility] Comment on above: Performed By: #### G LULS #### Point of Care testing , Hematocrit (Bld) [Volume fraction] 31.3 % Low 34.0-46.4 [facility] Comment on above: Performed By: #### G LULS #### Point of Care testing , Hemoglobin (Bld) [Mass/Vol] 10.1 g/dL Low 11.8-15.4 [facility] Comment on above: Performed By: #### G LULS #### Point of Care testing , Lymphocytes (Bld) [#/Vol] 2.5 10*3/uL Normal 1.00-4.8 [facility] Comment on above: Performed By: #### G LULS #### Point of Care testing , Lymphocytes/100 WBC (Bld) 19.0 % Normal . [facility] Comment on above: Performed By: #### G LULS #### Point of Care testing , MCH (RBC) [Entitic mass] 25.9 pg Normal 24.7-34.3 [facility] Comment on above: Performed By: #### G LULS #### Point of Care testing , MCV (RBC) [Entitic vol] 80.1 fL Normal 80-100 [facility] Comment on above: Performed By: #### G LULS #### Point of Care testing , Mean Corpuscular HGB Conc 32.4 g/dL Normal 32.0-35.0 [facility] Comment on above: Performed By: #### G LULS #### Point of Care testing , Monocytes (Bld) [#/Vol] 0.6 10*3/uL Normal 0.0-0.8 [facility] Comment on above: Performed By: #### G LULS #### Point of Care testing , Monocytes/100 WBC (Bld) 4.4 % Normal . [facility] Comment on above: Performed By: #### G LULS #### Point of Care testing , Neutrophils (Bld) [#/Vol] 10.0 10*3/uL High 1.8-7.7 [facility] Comment on above: Performed By: #### G LULS #### Point of Care testing , Neutrophils/100 WBC (Bld) 74.5 % Normal . [facility] Comment on above: Performed By: #### G LULS #### Point of Care testing , NRBC% 0.0 /100{WBC} Normal 0-0.5 [facility] Comment on above: Performed By: #### G LULS #### Point of Care testing , Platelet mean volume (Bld) [Entitic vol] 9.9 fL Normal 6.3-10.7 [facility] Comment on above: Performed By: #### G LULS #### Point of Care testing , Platelets (Bld) [#/Vol] 299 10*3/uL Normal 150-450 [facility] Comment on above: Performed By: #### G LULS #### Point of Care testing , RBC (Bld) [#/Vol] 3.91 10*6/uL Normal 3.60-5.00 [facility] Comment on above: Performed By: #### G LULS #### Point of Care testing , WBC (Bld) [#/Vol] 13.4 10*3/uL High 3.8-11.6 [facility] Comment on above: Performed By: #### G LUMALS #### Point of Care testing , Comprehensive Metabolic Pane krystin 09-06-2024 Albumin [Mass/Vol] 3.7 g/dL Normal 3.5-5.[address] [facility] Comment on above: Performed By: #### G LUMALS #### Point of Care testing , Albumin/Globulin [Mass ratio] 0.8 {ratio} Normal [facility] Comment on above: Performed By: #### G LUMALS #### Point of Care testing , ALP [Catalytic activity/Vol] 91 U/L Normal 34-104 [facility] Comment on above: Performed By: #### G LUMALS #### Point of Care testing , ALT [Catalytic activity/Vol] 9 U/L Normal 7-52 [facility] Comment on above: Performed By: #### G LUMALS #### Point of Care testing , Anion gap [Moles/Vol] 11.5 mmol/L Normal 6.0-15.0 [facility] Comment on above: Performed By: #### G LUMALS #### Point of Care testing , AST [Catalytic activity/Vol] 15 U/L Normal 13-39 [facility] Comment on above: Performed By: #### G LUMALS #### Point of Care testing , Bilirubin [Mass/Vol] 0.2 mg/dL Low 0.3-1.0 [facility] Comment on above: Performed By: #### G LUMALS #### Point of Care testing , Calcium [Mass/Vol] 9.7 mg/dL Normal 8.6-10.[address] [facility] Comment on above: Performed By: #### G LUMALS #### Point of Care testing , Chloride [Moles/Vol] 110 mmol/L High 98-107 [facility] Comment on above: Performed By: #### G DIANE #### Point of Care testing , CO2 [Moles/Vol] 16.2 mmol/L Low 21.0-31.0 [facility] Comment on above: Performed By: #### G LULS #### Point of Care testing , Creatinine [Mass/Vol] 2.73 mg/dL High 0.60-1.20 [facility] Comment on above: Performed By: #### G LULS #### Point of Care testing , Creatinine Clr Calc Pharmacy 14.56 Normal [facility] Comment on above: Performed By: #### G LULS #### Point of Care testing , Estimated GFR 18.618 mL/Min Normal [facility] Comment on above: Performed By: #### G LULS #### Point of Care testing , Globulin (S) [Mass/Vol] 4.5 g/dL Normal [facility] Comment on above: Performed By: #### G LULS #### Point of Care testing , Glucose [Mass/Vol] 168 mg/dL Significant change up 70-100 [facility] Comment on above: Result Comment: [facility] Glucose Reference Range is dependent on time and content of last meal. Glucose of more than 200 mg/dL in a nonstressed, ambulatory subject supports the diagnosis of Diabetes Mellitus. ADA recommended reference range Performed By: #### G LULS #### Point of Care testing , Potassium [Moles/Vol] 5.7 mmol/L High 3.5-5.1 [facility] Comment on above: Performed By: #### G LULS #### Point of Care testing , Protein [Mass/Vol] 8.2 g/dL Normal 6.4-8.[address] [facility] Comment on above: Performed By: #### G LULS #### Point of Care testing , Sodium [Moles/Vol] 132 mmol/L Low 136-[address] [facility] Comment on above: Performed By: #### G LULS #### Point of Care testing , Urea nitrogen [Mass/Vol] 45 mg/dL High 7-25 [facility] Comment on above: Performed By: #### G LULS #### Point of Care testing , Glucose Poct Glucometerson 0 - Glucose [Mass/Vol] 264 mg/dL Normal [facility] Comment on above: Result Comment: [place] [facility] Glucose Reference Range is dependent on time and content of last meal. Glucose of more than 200 mg/dL in a nonstressed, ambulatory subject supports the diagnosis of Diabetes Mellitus. PERFORMED BY: [address] [place] [id number] PATHOLOGIST POWER TONG OPERATOR NICK MOHR M.D. Performed By: #### G LULS #### Point of Care testing , Commemt1 Glu2: Cleaned Meter Normal [facility] Comment on above: Result Comment: PERF ORMED BY: [address] [place] [address] PATHOLOGIST POWER TONG OPERATOR NICK MOHR M.D. Performed By: #### G LULS #### Point of Care testing , Glucose [Mass/Vol] 166 mg/dL Normal [facility] Comment on above: Result Comment: [facility] Glucose Reference Range is dependent on time and content of last meal. Glucose of more than 200 mg/dL in a nonstressed, ambulatory subject supports the diagnosis of Diabetes Mellitus. Performed By: #### G LULS #### Point of Care testing , Magnesiumon 09-06-2024 Magnesium [Mass/Vol] 1.5 mg/dL Low 1.9-2.7 [facility] Comment on above: Result Comment: PERF ORMED BY: [address] [place] [address] PATHOLOGIST POWER TONG OPERATOR NICK MOHR M.D. Performed By: #### G LULS #### Point of Care testing , Magnesium [Mass/volume] in S ryan or PlasmaOrdered By: Alejandro Vallejo on 09-06-2024 Magnesium [Mass/Vol] Magnesium [Mass/vol ume] in Serum or Plasma Low 1.9-2.7 [facility] Phosphate [Mass/volume] in S ryan or PlasmaOrdered By: Alejandro Vallejo on 09-06-2024 Phosphate [Mass/Vol] Phosphate [Mass/vol ume] in Serum or Plasma High 2.5-4.5 [facility] Phosphoruson 09-06-2024 Phosphate [Mass/Vol] 5.4 mg/dL High 2.5-4.5 [facility] Comment on above: Performed By: #### G LULS #### Point of Care testing , US renal BIon 09-06-2024 US renal BI [facility] [place] [address] Ultrasound Report Signed Patient: Aislinn Wheeler MR#: [id number] [birth year] : 1960 Acct:[id number] Age/Sex: 64 / F ADM Date: 09/05/24 Loc: Room: [address] [place] [address] Type: ADM IN Attending Dr: Gilmer Tai MD Ordering Provider: Ashley Diaz APRN Date of Service: 09/06/24 US/US renal BI: ANATOLIY Copies to: MD Ashley Love, [employer] Bilateral Renal Ultrasound HISTORY: Acute kidney injury [...] Jori Ruiz M.D.09/06/2024 9:48 PM Dictation Location: [place] [address] Tech: Griseldameron Reneer Transcribed By: [facility] 09/06/[id number] Dictated By: Jori Ruiz DO 09/06/242145 Signed By: 09/06/242147 Normal [facility] Alanine aminotransferase [En zymatic activity/volume] in Serum or PlasmaOrdered By: Yessica Barros on 09-05-2024 ALT [Catalytic activity/Vol] Alanine aminotransferase [Enzymatic activity/volume] in Serum or Plasma [facility] Albumin [Mass/volume] in Ser um or Plasma by Bromocresol green (BCG) dye binding methoOrdered By: Yessica Barros on 09-05-2024 Albumin BCG dye [Mass/Vol] Albumin [Mass/volume] in Serum or Plasma by Bromocresol green (BCG) dye binding metho Low 3.5-5.7 [facility] Alkaline phosphatase [Enzyma tic activity/volume] in Serum or PlasmaOrdered By: Yessica Barros on 09-05-2024 ALP [Catalytic activity/Vol] Alkaline phosphatase [Enzymatic activity/volume] in Serum or Plasma 34-104 [facility] Appearance of UrineOrdered B y: Yessica Barros on 09-05-2024 Appearance (U) Urine appearance Abnormal Clear [facility] Aspartate aminotransferase [ Enzymatic activity/volume] in Serum or PlasmaOrdered By: Yessica Barros on 09-05-2024 AST [Catalytic activity/Vol] Aspartate aminotransferase [Enzymatic activity/volume] in Serum or Plasma 13-39 [facility] Bacteria [Presence] in Urine by AutomatedOrdered By: Yessica Barros on 09-05-2024 Bacteria Auto Ql (U) Bacteria [Presence] in Urine by Automated High None Seen [facility] Basophils Auto (Bld) [#/Vol] Ordered By: Yessica Barros on 09-05-2024 Basophils (Bld) [#/Vol] Automated basophil count 0.0-0.2 [facility] Basophils/100 WBC Auto (Bld) Ordered By: Yessica Barros on 09-05-2024 Basophils/100 WBC (Bld) Automated basophil % . [facility] Bilirubin Test strip Ql (U)O rdered By: Yessica Barros on 09-05-2024 Bilirubin Ql (U) Bilirubin.total [Presence] in Urine by Test strip Negative [facility] Bilirubin.total [Mass/volume ] in Serum or PlasmaOrdered By: Yessica Barros on 09-05-2024 Bilirubin [Mass/Vol] Bilirubin.total [Mass/volume] in Serum or Plasma Low 0.3-1.0 [facility] Calcium [Mass/volume] in Ser um or PlasmaOrdered By: Yessica Barros on 09-05-2024 Calcium [Mass/Vol] Calcium [Mass/volume ] in Serum or Plasma Low 8.6-10.3 [facility] Carbon dioxide, total [Moles /volume] in Serum or PlasmaOrdered By: Yessica Barros on 09-05-2024 CO2 [Moles/Vol] Carbon dioxide, tota l [Moles/volume] in Serum or Plasma Low 21.0-31.0 [facility] Chloride [Moles/volume] in S ryan or PlasmaOrdered By: Yessica Barros on 09-05-2024 Chloride [Moles/Vol] Chloride [Moles/vol ume] in Serum or Plasma High 98-107 [facility] Chloride [Moles/volume] in U rineOrdered By: Gilmer Tai on 09-05-2024 Chloride (U) [Moles/Vol] Chloride [Moles/volume] in Urine [facility] Comment on above: No reference range e stablished Chloride, Urine (Random)on 0 09-05-2024 Chloride, Urine (Random) 54 mmol/L Normal [facility] Comment on above: Order Comment: Comme nt addon admission urine Result Comment: No r eference range established PERFORMED BY: [address] [place] [address] PATHOLOGIST POWER TONG OPERATOR NICK MOHR M.D. Performed By: #### H BSAB, HBCAB, HEPACUTE #### [facility] , Color Auto (U)Ordered By: Rodriguez Barros on 09-05-2024 Color (U) Color of Urine by Auto Abnormal Yellow Fi [facility] Complete Blood Count Auto Di ffon 09-05-2024 Basophils (Bld) [#/Vol] 0.1 10*3/uL Normal 0.0-0.2 [facility] Comment on above: Result Comment: PERF ORMED BY: [facility] [address] [place] [address] PATHOLOGIST POWER TONG OPERATOR NICK MOHR M.D. Performed By: #### G LULS #### Point of Care testing , Basophils/100 WBC (Bld) 1.4 % Normal . [facility] Comment on above: Performed By: #### G LULS #### Point of Care testing , Eosinophils (Bld) [#/Vol] 0.2 10*3/uL Normal 0.0-0.45 [facility] Comment on above: Performed By: #### G LULS #### Point of Care testing , Eosinophils/100 WBC (Bld) 2.2 % Normal . [facility] Comment on above: Performed By: #### G LULS #### Point of Care testing , Erythrocyte distribution width (RBC) [Ratio] 14.4 % Normal 11.9-15.3 [facility] Comment on above: Performed By: #### G LULS #### Point of Care testing , Hematocrit (Bld) [Volume fraction] 30.3 % Low 34.0-46.4 [facility] Comment on above: Performed By: #### G LULS #### Point of Care testing , Hemoglobin (Bld) [Mass/Vol] 10.0 g/dL Low 11.8-15.4 [facility] Comment on above: Performed By: #### G LULS #### Point of Care testing , Lymphocytes (Bld) [#/Vol] 2.1 10*3/uL Normal 1.00-4.8 [facility] Comment on above: Performed By: #### G LULS #### Point of Care testing , Lymphocytes/100 WBC (Bld) 25.0 % Normal . [facility] Comment on above: Performed By: #### G LULS #### Point of Care testing , MCH (RBC) [Entitic mass] 26.2 pg Normal 24.7-34.3 [facility] Comment on above: Performed By: #### G LULS #### Point of Care testing , MCV (RBC) [Entitic vol] 79.6 fL Low 80-100 [facility] Comment on above: Performed By: #### G LULS #### Point of Care testing , Mean Corpuscular HGB Conc 32.9 g/dL Normal 32.0-35.0 [facility] Comment on above: Performed By: #### G LULS #### Point of Care testing , Monocytes (Bld) [#/Vol] 0.5 10*3/uL Normal 0.0-0.8 [facility] Comment on above: Performed By: #### G LULS #### Point of Care testing , Monocytes/100 WBC (Bld) 17.62 % Normal 0.00-20.00 [facility] Comment on above: Performed By: #### G LULS #### Point of Care testing , Monocytes/100 WBC (Bld) 5.8 % Normal . [facility] Comment on above: Performed By: #### G LULS #### Point of Care testing , Neutrophils (Bld) [#/Vol] 5.5 10*3/uL Normal 1.8-7.7 [facility] Comment on above: Performed By: #### G LULS #### Point of Care testing , Neutrophils/100 WBC (Bld) 65.6 % Normal . [facility] Comment on above: Performed By: #### G LULS #### Point of Care testing , NRBC% 0.1 /100{WBC} Normal 0-0.5 [facility] Comment on above: Performed By: #### G LULS #### Point of Care testing , Platelet mean volume (Bld) [Entitic vol] 9.1 fL Normal 6.3-10.7 [facility] Comment on above: Performed By: #### G LULS #### Point of Care testing , Platelets (Bld) [#/Vol] 254 10*3/uL Normal 150-450 [facility] Comment on above: Performed By: #### G LULS #### Point of Care testing , RBC (Bld) [#/Vol] 3.81 10*6/uL Normal 3.60-5.00 [facility] Comment on above: Performed By: #### G LULS #### Point of Care testing , WBC (Bld) [#/Vol] 8.4 10*3/uL Normal 3.8-11.[address] [facility] Comment on above: Performed By: #### G LULS #### Point of Care testing , Comprehensive Metabolic Pane krystin 09-05-2024 Albumin [Mass/Vol] 3.3 g/dL Low 3.5-5.[address] [facility] Comment on above: Performed By: #### G LUMALS #### Point of Care testing , Albumin/Globulin [Mass ratio] 0.8 {ratio} Normal [facility] Comment on above: Performed By: #### G LUMALS #### Point of Care testing , ALP [Catalytic activity/Vol] 84 U/L Normal 34-104 [facility] Comment on above: Performed By: #### G LULS #### Point of Care testing , ALT [Catalytic activity/Vol] 10 U/L Normal 7-52 [facility] Comment on above: Performed By: #### G LUMALS #### Point of Care testing , Anion gap [Moles/Vol] 12.0 mmol/L Normal 6.0-15.0 [facility] Comment on above: Performed By: #### G LUMALS #### Point of Care testing , AST [Catalytic activity/Vol] 14 U/L Normal 13-39 [facility] Comment on above: Performed By: #### G LUMALS #### Point of Care testing , Bilirubin [Mass/Vol] 0.2 mg/dL Low 0.3-1.0 [facility] Comment on above: Performed By: #### G LUMALS #### Point of Care testing , Calcium [Mass/Vol] 8.4 mg/dL Low 8.6-10.[address] [facility] Comment on above: Performed By: #### G LULS #### Point of Care testing , Chloride [Moles/Vol] 109 mmol/L High 98-107 [facility] Comment on above: Performed By: #### G LUMALS #### Point of Care testing , CO2 [Moles/Vol] 18.7 mmol/L Low 21.0-31.0 [facility] Comment on above: Performed By: #### G LULS #### Point of Care testing , Creatinine [Mass/Vol] 2.48 mg/dL High 0.60-1.20 [facility] Comment on above: Performed By: #### G LULS #### Point of Care testing , Creatinine Clr Calc Pharmacy 18.03 Normal [facility] Comment on above: Result Comment: PERF ORMED BY: [facility] [place] [address] PATHOLOGIST POWER TONG OPERATOR NICK MOHR M.D. Performed By: #### G LULS #### Point of Care testing , Estimated GFR 20.892 mL/Min Normal [facility] Comment on above: Performed By: #### G LULS #### Point of Care testing , Globulin (S) [Mass/Vol] 4.3 g/dL Normal [facility] Comment on above: Performed By: #### G LULS #### Point of Care testing , Glucose [Mass/Vol] 296 mg/dL High 70-[address] [facility] Comment on above: Result Comment: [facility] Glucose Reference Range is dependent on time and content of last meal. Glucose of more than 200 mg/dL in a nonstressed, ambulatory subject supports the diagnosis of Diabetes Mellitus. ADA recommended reference range Performed By: #### G LULS #### Point of Care testing , Potassium [Moles/Vol] 5.7 mmol/L High 3.5-5.1 [facility] Comment on above: Performed By: #### G LULS #### Point of Care testing , Protein [Mass/Vol] 7.6 g/dL Normal 6.4-8.[address] [facility] Comment on above: Performed By: #### G LULS #### Point of Care testing , Sodium [Moles/Vol] 134 mmol/L Low 136-[address] [facility] Comment on above: Performed By: #### G LULS #### Point of Care testing , Urea nitrogen [Mass/Vol] 40 mg/dL High 7-25 [facility] Comment on above: Performed By: #### G LULS #### Point of Care testing , Creatinine [Mass/volume] in Serum or PlasmaOrdered By: Yessica Barros on 09-05-2024 Creatinine [Mass/Vol] Creatinine [Mass/v olume] in Serum or Plasma High 0.60-1.20 [facility] Creatinine [Mass/volume] in UrineOrdered By: Gilmer Tai on 09-05-2024 Creatinine (U) [Mass/Vol] Creatinine [Mass/volume] in Urine [facility] Comment on above: No reference range e stablished Creatinine, Urine (Random)on 09-05-2024 Creatinine, Urine (Random) 32.00 mg/dL Normal [facility] Comment on above: Order Comment: Comme nt addon admission urine Result Comment: No r eference range established Performed By: #### H BSAB, HBCAB, HEPACUTE #### [facility] , Dipstick and Microscopicon 0 09-05-2024 Appearance (U) Cloudy Critically abnormal Clear [facility] Comment on above: Order Comment: Name Collection Type:: Clean-Voided Midstream Performed By: #### H BSAB, HBCAB, HEPACUTE #### [facility] , Bacteria,Urine 4+ High None Seen [facility] Comment on above: Order Comment: Name Collection Type:: Clean-Voided Midstream Performed By: #### H BSAB, HBCAB, HEPACUTE #### [facility] , Bilirubin,Urine Negative Normal Negative [facility] Comment on above: Order Comment: Name Collection Type:: Clean-Voided Midstream Performed By: #### H BSAB, HBCAB, HEPACUTE #### [facility] , Color (U) Dark-Yellow Critically abnormal Yellow [facility] Comment on above: Order Comment: Name Collection Type:: Clean-Voided Midstream Performed By: #### H BSAB, HBCAB, HEPACUTE #### [facility] , Glucose Ql (U) 300 mg/dL High Normal [facility] Comment on above: Order Comment: Name Collection Type:: Clean-Voided Midstream Performed By: #### H BSAB, HBCAB, HEPACUTE #### [facility] , Hyaline Casts,Urine 0 [LPF] Normal 0-8 [facility] Comment on above: Order Comment: Name Collection Type:: Clean-Voided Midstream Performed By: #### H BSAB, HBCAB, HEPACUTE #### [facility] , Ketones Ql (U) Negative Normal Negative [facility] Comment on above: Order Comment: Name Collection Type:: Clean-Voided Midstream Performed By: #### H BSAB, HBCAB, HEPACUTE #### [facility] , Leukocyte esterase Test strip Ql (U) 4+ High Negative [facility] Comment on above: Order Comment: Name Collection Type:: Clean-Voided Midstream Performed By: #### H BSAB, HBCAB, HEPACUTE #### [facility] , Mucus,Urine Rare Normal [facility] Comment on above: Order Comment: Name Collection Type:: Clean-Voided Midstream Result Comment: PERF ORMED BY: [address] [place] [address] PATHOLOGIST POWER TONG OPERATOR NICK MOHR M.D. Performed By: #### H BSAB, HBCAB, HEPACUTE #### [facility] , Nitrite,Urine Positive High Negative [facility] Comment on above: Order Comment: Name Collection Type:: Clean-Voided Midstream Performed By: #### H BSAB, HBCAB, HEPACUTE #### [facility] , Occult Blood,Urine 1+ High Negative [facility] Comment on above: Order Comment: Name Collection Type:: Clean-Voided Midstream Result Comment: PERF ORMED BY: [address] [place] [address] PATHOLOGIST POWER TONG OPERATOR NICK MOHR M.D. Performed By: #### H BSAB, HBCAB, HEPACUTE #### [facility] , pH (U) 6.0 [pH] Normal 5.0-9.0 [facility] Comment on above: Order Comment: Name Collection Type:: Clean-Voided Midstream Performed By: #### H BSAB, HBCAB, HEPACUTE #### [facility] , Protein (U) [Mass/Vol] 70 mg/dL High Negative [facility] Comment on above: Order Comment: Name Collection Type:: Clean-Voided Midstream Performed By: #### H BSAB, HBCAB, HEPACUTE #### [facility] , RBC,Urine 3 [HPF] Normal 0-4 [facility] Comment on above: Order Comment: Name Collection Type:: Clean-Voided Midstream Performed By: #### H BSAB, HBCAB, HEPACUTE #### [facility] , Specificy [place],Urine 1.007 Normal 1.001-1.030 [facility] Comment on above: Order Comment: Name Collection Type:: Clean-Voided Midstream Performed By: #### H BSAB, HBCAB, HEPACUTE #### [facility] , Squamous Epithelial Cell,Urine 1 [HPF] Normal 0-2 [facility] Comment on above: Order Comment: Name Collection Type:: Clean-Voided Midstream Performed By: #### H BSAB, HBCAB, HEPACUTE #### [facility] , Urobilinogen,Urine Normal Normal Normal [facility] Comment on above: Order Comment: Name Collection Type:: Clean-Voided Midstream Performed By: #### H BSAB, HBCAB, HEPACUTE #### [facility] , WBC CLUMP, Urine Many High None Seen [facility] Comment on above: Order Comment: Name Collection Type:: Clean-Voided Midstream Performed By: #### H BSAB, HBCAB, HEPACUTE #### [facility] , WBC,Urine Innumerable High 0-4 [facility] Comment on above: Order Comment: Name Collection Type:: Clean-Voided Midstream Performed By: #### H BSAB, HBCAB, HEPACUTE #### [facility] , Eosinophils Auto (Bld) [#/Vo l]Ordered By: Yessica Barros on 09-05-2024 Eosinophils (Bld) [#/Vol] Automated eosinophil count 0.0-0.45 [facility] Eosinophils/100 WBC Auto (Bl d)Ordered By: Yessica Barros on 09-05-2024 Eosinophils/100 WBC (Bld) Automated eosinophil % . [facility] Epithelial cells.squamous [# /area] in Urine sediment by Automated countOrdered By: Yessica Barros on 09-05-2024 Epithelial cells.squamous Auto (Urine sed) [#/Area] Epithelial cells.squamous [#/area] in Urine sediment by Automated count 0-2 [facility] Erythrocyte distribution wid th Auto (RBC) [Ratio]Ordered By: Yessica Barros on 09-05-2024 Erythrocyte distribution width (RBC) [Ratio] Erythrocyte distribution width [Ratio] by Automated count 11.9-15.3 [facility] Erythrocytes [#/area] in Uri ne sediment by Automated countOrdered By: Yessica Barros on 09-05-2024 RBC Auto (Urine sed) [#/Area] Erythrocytes [#/area] in Urine sediment by Automated count 0-4 [facility] Globulin Calc (S) [Mass/Vol] Ordered By: Yessica Barros on 09-05-2024 Globulin (S) [Mass/Vol] Serum globulin measurement by calculation (mass/volume) [facility] Glucose Glucometer (BldC) [M ass/Vol]Ordered By: Alejandro Vallejo on 09-05-2024 Glucose [Mass/Vol] Capillary blood gluc ose measurement by glucometer (mass/volume) [facility] Comment on above: Random Glucose Refer ence Range is dependent on time and content of last meal. Glucose of more than 200 mg/dL in a nonstressed, ambulatory subject supports the diagnosis of Diabetes Mellitus. Glucose Poct Glucometerson 0 09-05-2024 Glucose [Mass/Vol] 124 mg/dL Normal [facility] Comment on above: Result Comment: [place] Glucose Reference Range is dependent on time and content of last meal. Glucose of more than 200 mg/dL in a nonstressed, ambulatory subject supports the diagnosis of Diabetes Mellitus. PERFORMED BY: [facility] [place] [address] PATHOLOGIST POWER TONG OPERATOR NICK MOHR M.D. Performed By: #### G DIANE #### Point of Care testing , Glucose [Mass/volume] in Ser um or PlasmaOrdered By: Yessica Barros on 09-05-2024 Glucose [Mass/Vol] Glucose [Mass/volume ] in Serum or Plasma High 70-100 [facility] Comment on above: ADA recommended refe rence [...] in Urine by Test strip High Normal [facility] Hematocrit Auto (Bld) [Volum e fraction]Ordered By: Yessica Barros on 09-05-2024 Hematocrit (Bld) [Volume fraction] Hematocrit [Volume Fraction] of Blood by Automated count Low 34.0-46.4 [facility] Hemoglobin Test strip Ql (U) Ordered By: Yessica Barros on 09-05-2024 Hemoglobin Ql (U) Hemoglobin [Presence ] in Urine by Test strip High Negative [facility] Hemoglobin [Mass/volume] in BloodOrdered By: Yessica Barros on 09-05-2024 Hemoglobin (Bld) [Mass/Vol] Hemoglobin [Mass/volume] in Blood Low 11.8-15.4 [facility] Hyaline casts [#/area] in Ur ine sediment by Automated countOrdered By: Yessica Barros on 09-05-2024 Hyaline casts Auto (Urine sed) [#/Area] Hyaline casts [#/area] in Urine sediment by Automated count 0-8 [facility] Ketones Test strip Ql (U)Ord ered By: Yessica Barros on 09-05-2024 Ketones Ql (U) Ketones [Presence] i n Urine by Test strip Negative [facility] Leukocyte clumps [Presence] in Urine by AutomatedOrdered By: Yessica Barros on 09-05-2024 Leukocyte clumps Auto Ql (U) Leukocyte clumps [Presence] in Urine by Automated High None Seen [facility] Leukocyte esterase [Presence ] in Urine by Test stripOrdered By: Yessica Barros on 09-05-2024 Leukocyte esterase Test strip Ql (U) Leukocyte esterase [Presence] in Urine by Test strip High Negative [facility] Leukocytes [#/area] in Urine sediment by Automated countOrdered By: Yessica Barros on 09-05-2024 WBC Auto (Urine sed) [#/Area] Leukocytes [#/area] in Urine sediment by Automated count High 0-4 [facility] Leukocytes [#/volume] correc madhavi for nucleated erythrocytes in Blood by Automated counOrdered By: Yessica Barros on 09-05-2024 WBC corrected for nucl RBC Auto (Bld) [#/Vol] Leukocytes [#/volume] corrected for nucleated erythrocytes in Blood by Automated coun 3.8-11.6 [facility] Lymphocytes Auto (Bld) [#/Vo l]Ordered By: Yessica Barros on 09-05-2024 Lymphocytes (Bld) [#/Vol] Lymphocytes [#/volume] in Blood by Automated count 1.00-4.8 [facility] Lymphocytes/100 WBC Auto (Bl d)Ordered By: Yessica Barros on 09-05-2024 Lymphocytes/100 WBC (Bld) Lymphocytes/100 leukocytes in Blood by Automated count . [facility] MCH Auto (RBC) [Entitic mass ]Ordered By: Yessica Barros on 09-05-2024 MCH (RBC) [Entitic mass] MCH [Entitic mass] by Automated count 24.7-34.3 [facility] MCHC Auto (RBC) [Mass/Vol]Or dered By: Yessica Barros on 09-05-2024 MCHC (RBC) [Mass/Vol] MCHC [Mass/volume] by Automated count 32.0-35.0 [facility] MCV Auto (RBC) [Entitic vol] Ordered By: Yessica Barros on 09-05-2024 MCV (RBC) [Entitic vol] MCV [Entitic volume] by Automated count Low 80-100 [facility] Monocyte distribution width [Entitic volume] in Blood by AutomatedOrdered By: Yessica Barros on 09-05-2024 Monocyte distribution width Auto (Bld) [Entitic vol] Monocyte distribution width [Entitic volume] in Blood by Automated 0.00-20.00 [facility] Monocytes Auto (Bld) [#/Vol] Ordered By: Yessica Barros on 09-05-2024 Monocytes (Bld) [#/Vol] Automated blood monocyte count 0.0-0.8 [facility] Monocytes/100 WBC Auto (Bld) Ordered By: Yessica Barros on 09-05-2024 Monocytes/100 WBC (Bld) Automated monocyte % . [facility] Mucus [Presence] in Urine by AutomatedOrdered By: Yessica Barros on 09-05-2024 Mucus Auto Ql (U) Mucus [Presence] in Urine by Automated [facility] Neutrophils Auto (Bld) [#/Vo l]Ordered By: Yessica Barros on 09-05-2024 Neutrophils (Bld) [#/Vol] Neutrophils [#/volume] in Blood by Automated count 1.8-7.7 [facility] Neutrophils/100 WBC Auto (Bl d)Ordered By: Yessica Barros on 09-05-2024 Neutrophils/100 WBC (Bld) Automated neutrophil % . [facility] Nitrite Test strip Ql (U)Ord ered By: Yessica Barros on 09-05-2024 Nitrite Ql (U) Nitrite [Presence] i n Urine by Test strip High Negative [facility] No Panel InformationOrdered By: Gilmer Tai on 09-05-2024 Urine Osmolality 245 mosm Low 250-900 [facility] No Panel InformationOrdered By: Yessica Barros on 09-05-2024 Estimated GFR (CKD-EPI) 20.892 mL/Min [facility] Creatinine Clearance (Chem 18.03 [facility] Nucleated erythrocytes [Pres ence] in Blood by Automated countOrdered By: Yessica Barros on 09-05-2024 Nucleated RBC Auto Ql (Bld) Nucleated erythrocytes [Presence] in Blood by Automated count 0-0.5 [facility] Osmolality, Urineon 09-05-19 25 Osmolality, Urine 245 mosm Low 250-900 [facility] Comment on above: Order Comment: Comme nt addon admission urine Result Comment: PERF ORMED BY: [facility] [place] [address] PATHOLOGIST POWER TONG OPERATOR NICK MOHR M.D. Performed By: #### H BSAB, HBCAB, HEPACUTE #### [facility] , Platelet mean volume Auto (B ld) [Entitic vol]Ordered By: Yessica Barros on 09-05-2024 Platelet mean volume (Bld) [Entitic vol] Platelet mean volume [Entitic volume] in Blood by Automated count 6.3-10.7 [facility] Platelets Auto (Bld) [#/Vol] Ordered By: Yessica Barros on 09-05-2024 Platelets (Bld) [#/Vol] Platelets [#/volume] in Blood by Automated count 150-450 [facility] Potassium [Moles/volume] in Serum or PlasmaOrdered By: Yessica Barros on 09-05-2024 Potassium [Moles/Vol] Potassium [Moles/v olume] in Serum or Plasma High 3.5-5.1 [facility] Potassium [Moles/volume] in UrineOrdered By: Gilmer Tai on 09-05-2024 Potassium (U) [Moles/Vol] Potassium [Moles/volume] in Urine [facility] Comment on above: No reference range e stablished Potassium, Urine (Random)on 09-05-2024 Potassium, Urine (Random) 19.8 mmol/L Normal [facility] Comment on above: Order Comment: Comme nt addon admission urine Result Comment: No r eference range established Performed By: #### H BSAB, HBCAB, HEPACUTE #### [facility] , Protein Test strip (U) [Mass /Vol]Ordered By: Yessica Barros on 09-05-2024 Protein (U) [Mass/Vol] Protein [Mass/volume] in Urine by Test strip High Negative [facility] Protein [Mass/volume] in Ser um or PlasmaOrdered By: Yessica Barros on 09-05-2024 Protein [Mass/Vol] Protein [Mass/volume ] in Serum or Plasma 6.4-8.9 [facility] RBC Auto (Bld) [#/Vol]Ordere d By: Yessica Barros on 09-05-2024 RBC (Bld) [#/Vol] Erythrocytes [#/volu me] in Blood by Automated count 3.60-5.00 [facility] Serum or plasma albumin/glob ulin mass ratioOrdered By: Yessica Barros on 09-05-2024 Albumin/Globulin [Mass ratio] Serum or plasma albumin/globulin mass ratio [facility] Serum or plasma anion gap de terminationOrdered By: Yessica Barros on 09-05-2024 Anion gap [Moles/Vol] Serum or plasma an ion gap determination 6.0-15.0 [facility] Sodium [Moles/volume] in Ser um or PlasmaOrdered By: Yessica Barros on 09-05-2024 Sodium [Moles/Vol] Sodium [Moles/volume ] in Serum or Plasma Low 136-145 [facility] Sodium [Moles/volume] in Uri neOrdered By: Gilmer Tai on 09-05-2024 Sodium (U) [Moles/Vol] Sodium [Moles/volume] in Urine [facility] Comment on above: No reference range e stablished Sodium, Urine (Random)on Sodium (U) [Moles/Vol] 53 mmol/L Normal [facility] Comment on above: Order Comment: Comme nt addon admission urine Result Comment: No r eference range established Performed By: #### H BSAB, HBCAB, HEPACUTE #### [facility] , Specific gravity Test strip (U) [Rel density]Ordered By: Yessica Barros on 09-05-2024 Specific gravity (U) [Rel density] Specific gravity of Urine by Test strip 1.001-1.030 [facility] Urea nitrogen [Mass/volume] in Serum or PlasmaOrdered By: Yessica Barros on 09-05-2024 Urea nitrogen [Mass/Vol] Urea nitrogen [Mass/volume] in Serum or Plasma High 7-25 [facility] Urine Cultureon 09-05-2024 Bacteria identified Cx Nom (U) ORGANISM: Escherichia coli (O:ESCCOL) [place] Count >100,000 Aerobic LOCO Charge (NMIC56) SUSCEPTIBILITY [...] RESISTANT TO ALL B-LACTAM DRUGS. PERFORMED BY: [facility] [address] [place] [address] PATHOLOGIST POWER TONG OPERATOR NICK MOHR M.D. Normal [facility] Comment on above: Performed By: #### H BSAB, HBCAB, HEPACUTE #### [facility] , Urine cultureOrdered By: Shoaib Barros on 09-05-2024 Bacteria identified Cx Nom (U) Escherichia coli Abnormal [facility] Bacteria identified Cx Nom (U) Escherichia coli Abnormal [facility] Urobilinogen Test strip (U) [Mass/Vol]Ordered By: Yessica Barros on 09-05-2024 Urobilinogen (U) [Mass/Vol] Urobilinogen [Mass/volume] in Urine by Test strip Normal [facility] WBC Auto (Bld) [#/Vol]Ordere d By: Yessica Barros on 09-05-2024 WBC (Bld) [#/Vol] Leukocytes [#/volume ] in Blood by Automated count 3.8-11.6 [facility] pH Test strip (U)Ordered By: Yessica Barros on 09-05-2024 pH (U) pH of Urine by Test strip 5.0-9.0 [facility] Erythrocyte distribution wid th Auto (RBC) [Ratio]on 08-28-2024 Erythrocyte distribution width (RBC) [Ratio] Erythrocyte distribution width [Ratio] by Automated count 11.0-15.0 [facility] Estimated glomerular filtrat ion rate (GFR) non- Americanon 08-28-2024 GFR/1.73 sq M.predicted among non-blacks MDRD (S/P/Bld) [Vol rate/Area] Estimated glomerular filtration rate (GFR) non- Low >=60 mL/min/1.73 m 2 [facility] CBC WITH PLATELET NO DI FFERENTIALon 08-28-2024 Erythrocyte distribution width (RBC) [Ratio] 13.6 % 11.0 - 15.0 % [facility] Hematocrit (Bld) [Volume fraction] 30.8 % Low 36.0 - 48.0 % [facility] Hemoglobin (Bld) [Mass/Vol] 9.8 g/dL Low 12.0 - 16.0 g/dL [facility] Interpretation and review of laboratory results Abnormal [facility] MCH (RBC) [Entitic mass] 26.3 pg Low 26.7 - 34.0 pg [facility] MCHC (RBC) [Mass/Vol] 31.8 g/dL 29.9 - 35.2 g/dL [facility] MCV (RBC) [Entitic vol] 82.6 fL 81.0 - 99.0 fL [facility] Platelet mean volume (Bld) [Entitic vol] 11.3 fL 9.5 - 13.5 fL [facility] TBH PLT 152 [facility] TBH RBC 3.73 Low [facility] TBH WBC 8.5 [facility] Hematocrit Auto (Bld) [Volum e fraction]on 08-28-2024 Hematocrit (Bld) [Volume fraction] Hematocrit [Volume Fraction] of Blood by Automated count Low 36.0-48.0 [facility] Hemoglobin [Mass/volume] in Bloodon 08-28-2024 Hemoglobin (Bld) [Mass/Vol] Hemoglobin [Mass/volume] in Blood Low 12.0-16.0 [facility] Iron binding capacity [Mass/ volume] in Serum or Plasmaon 08-28-2024 Iron binding capacity [Mass/Vol] Iron binding capacity [Mass/volume] in Serum or Plasma 250.0-450.0 [facility] Iron saturation [Mass Fracti on] in Serum or Plasmaon 08-28-2024 Iron saturation [Mass fraction] Iron saturation [Mass Fraction] in Serum or Plasma [facility] - Chemistry and C hemistry - challengeon 08-28-2024 Albumin [Mass/Vol] 2.8 g/dL Low 3.4-5.0 [facility] Calcium [Mass/Vol] 8.4 mg/dL Low 8.5-10.1 [facility] Chloride [Moles/Vol] 104 mmol/L 98-107 [facility] CO2 [Moles/Vol] 20.9 mmol/L Low 21.0-32.0 [facility] Cobalamin (Vitamin B12) [Mass/Vol] 302 pg/mL [id number] [facility] Comment on above: Performed at: [facility] [address] [id number] Director: Chris Luna PhD, Phone: [phone] Creatinine [Mass/Vol] 2.71 mg/dL High 0.55-1.02 [facility] Ferritin [Mass/Vol] 403.0 ng/mL High 8.0-252.0 [facility] GFR/1.73 sq M.predicted MDRD (S/P/Bld) [Vol rate/Area] 21 mL/min/{1.73_m2} Low >=60 mL/min/1.73 m 2 [facility] Glucose [Mass/Vol] 198 mg/dL High 74-106 [facility] Iron [Mass/Vol] 39.0 ug/dL Low 50.0-170.0 [facility] Magnesium [Mass/Vol] 1.6 mg/dL Low 1.8-2.4 [facility] Potassium [Moles/Vol] 5.8 mmol/L High 3.5-5.1 [facility] Sodium [Moles/Vol] 135 mmol/L Low 136-145 [facility] Urate [Mass/Vol] 5.5 mg/dL 2.6-6.0 [facility] Urea nitrogen [Mass/Vol] 45.0 mg/dL High 7.0-18.0 [facility] Urea nitrogen/Creatinine [Mass ratio] 16.6 mg/mg [facility] Bilirubin Ql (U) Negative NEGATIVE [facility] Glucose (U) [Mass/Vol] 100 mg/dL Abnormal NEGATIVE [facility] Ketones Ql (U) Negative NEGATIVE [facility] pH (U) 6.0 [pH] 5.0-9.0 [facility] Specific gravity (U) [Rel density] 1.010 1.005-1.025 [facility] Urobilinogen Qn (U) 0.2 {Madeleine'U}/dL 0.2-1.0 [facility] - Specimen inform ationon 08-28-2024 Appearance (U) CLEAR CLEAR [facility] Color (U) LT. YELLOW YELLOW [facility] - Urinalysison Leukocyte esterase Test strip Ql (U) MODERATE Abnormal NEGATIVE [facility] Nitrite Ql (U) Positive Abnormal NEGATIVE [facility] Protein (U) [Mass/Vol] 80.9 mg/dL High <=11.9 [facility] Protein Ql (U) 100 mg/dL Abnormal NEG/TRACE [facility] Leukocytes [#/volume] correc madhavi for nucleated erythrocytes in Blood by Automated counon 08-28-2024 WBC corrected for nucl RBC Auto (Bld) [#/Vol] Leukocytes [#/volume] corrected for nucleated erythrocytes in Blood by Automated coun 4.0-11.0 [facility] MCH Auto (RBC) [Entitic mass ]on 08-28-2024 MCH (RBC) [Entitic mass] MCH [Entitic mass] by Automated count Low 26.7-34.0 [facility] MCHC Auto (RBC) [Mass/Vol]on 08-28-2024 MCHC (RBC) [Mass/Vol] MCHC [Mass/volume] by Automated count 29.9-35.2 [facility] MCV Auto (RBC) [Entitic vol] on 08-28-2024 MCV (RBC) [Entitic vol] MCV [Entitic volume] by Automated count 81.0-99.0 [facility] Microalbumin [Mass/volume] i n Urineon 08-28-2024 Albumin DL <= 20 mg/L (U) [Mass/Vol] Microalbumin [Mass/volume] in Urine <=30.0 [facility] No Panel Informationon 08-28 25-Hydroxy Vitamin D Total 8.5 ng/mL [facility] Comment on above: <20 ng/mL Vit D defi cient20-<30 ng/mL Vit D istqwcuunbth51-334 ng/mL Vit D sufficient>100 ng/mL Potential Toxicity Folate 14.20 ng/mL 8.60-58.90 [facility] Parathyroid Hormone (Intact) 103 pg/mL Abnormal 15-65 [facility] Comment on above: Performed at: - [employer] [address] [id number] Director: Chris Luna PhD, Phone: [phone] Phosphorus Level 5.5 mg/dL High 2.6-4.7 [facility] Urine Occult Blood TRACE-I NEGATIVE [facility] Urine Random Creatinine 18.25 mg/dL Low 20.00-300.0 0 [facility] Platelet mean volume Auto (B ld) [Entitic vol]on 08-28-2024 Platelet mean volume (Bld) [Entitic vol] Platelet mean volume [Entitic volume] in Blood by Automated count 9.5-13.5 [facility] Platelets Auto (Bld) [#/Vol] on 08-28-2024 Platelets (Bld) [#/Vol] Platelets [#/volume] in Blood by Automated count 150-450 [facility] RBC Auto (Bld) [#/Vol]on RBC (Bld) [#/Vol] Erythrocytes [#/volu me] in Blood by Automated count Low 4.20-5.40 [facility] Serum or plasma anion gap de terminationon 08-28-2024 Anion gap [Moles/Vol] Serum or plasma an ion gap determination [facility] Urine microalbumin/creatinin e mass ratioon 08-28-2024 Albumin/Creatinine DL <= 20 mg/L (U) [Mass ratio] Urine microalbumin/creatinine mass ratio High 0.0-29.9 [facility] Comment on above: NO MICROALBUMINURIA 0-29 MG/GCLINICAL MICROALBUMINURIA 30-300 MG/GMACROALBUMINURIA >300 MG/G Urine protein/creatinine rat ioon 08-28-2024 Protein/Creatinine (U) [Ratio] Urine protein/creatinine ratio [facility] MLR HEMOGLOBIN A1Con 08-08- 024 Glucose [Mass/Vol] 243 mg/dL [facility] HbA1c (Bld) [Mass fraction] 10.1 % High 4.5 - 6.2 % [facility] Comment on above: ADA RECOMMENDED LIMI T 4.0 - 6.0 ADA THERAPEUTIC TARGET < 7.0 ACTION SUGGESTED > 7.0 Interpretation and review of laboratory results Abnormal [facility] CLINISYNC [facility] 36on 07-05-2024 36 Received C9 approval . Pt called and scheduled. Wrnch notified. 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 LVM to call office back to schedule. Please advise pt to bring disc with imaging on it to her appt or advise resume writer where imaging had been completed. Thank You Normal [facility] Telephoneon 05-03-2024 Telephone [id number] Fernando Wheeler 1960 F Date Provider Department Center 05/03/2024 HANNA BRICE [facility] SURG Second Fl No family history on file Normal [facility] BLOOD CULTURE 1on 05-01-2024 BLOOD CULTURE 1 Blood Culture 1 NG5D NO GROWTH AT 5 DAYS.^NO GROWTH AT 5 DAYS. [facility] BLOOD CULTURE 2on 05-01-2024 BLOOD CULTURE 2 Blood Culture 2 NG5D NO GROWTH AT 5 DAYS.^NO GROWTH AT 5 DAYS. [facility] CNOVon 05-01-2024 CNOV Office Visit (UROLMN ) ----- AISLINN WHEELER ([id number]) 1960 F Date Time Provider Department 05/01/24 10:00 AM JUANITO BARNARD During your visit today, we recorded the following information about you: Pulse Blood pressure 74/minute 173/96 Juanito Barnard MD 05/01/2024 12:12 PM Signed [facility] UROLOGY NEW PATIENT [...] calculate BMI (more content not included)... Normal [facility] No Panel Informationon 05-01 [facility] URINALYSIS, REFLEX MICROSCOP ICon 05-01-2024 Bilirubin Ql (U) Negative Negative [facility] Clarity (Unsp spec) Clear Clear [facility] Color (U) Yellow Yellow [facility] Glucose Test strip (U) [Mass/Vol] 1+ Abnormal Negative [facility] Hemoglobin Ql (U) Negative Negative [facility] Interpretation and review of laboratory results Abnormal [facility] Ketones Ql (U) Negative Negative [facility] Leukocyte esterase Test strip Ql (U) Trace Abnormal Negative [facility] Nitrite Ql (U) Negative Negative [facility] pH (U) 5.5 [pH] NINF - 8.5 [facility] Protein (U) [Mass/Vol] 2+ Abnormal Negative [facility] Specific gravity (U) [Rel density] 1.010 1.005 - 1.030 [facility] Urobilinogen Ql (U) 0.2 EU/dL 0.2-1.0 EU/dL [facility] This test was cecilia prasad and its performance characteristics determined by [facility]'s Taurus Melendrez [facility] [place] (RT-PLMI). It has not been cleared or approved by the FDA. RT-PLIN is regulated under CLIA as qualified to perform high-complexity testing. This test is used for clinical purposes. It should not be regarded as investigational or for research. [facility] Bilirubin Ql (U) Negative Normal Negative [facility] Comment on above: Order Comment: Speci men Type: URINE SPECIMENOrdering Facility: [facility] Address: [address] [place] [address] Performed By: #### L [id number] ####[facility] LABCLIA [id number] [place] [address] [place] Clarity (Unsp spec) Clear Normal Clear [facility] Comment on above: Order Comment: Speci men Type: URINE SPECIMENOrdering Facility: [facility] Address: [address] [place] [address] Performed By: #### L [id number] ####[facility] LABCLIA [id number] [place] [address] [place] Color (U) Yellow Normal Yellow [facility] Comment on above: Order Comment: Speci men Type: URINE SPECIMENOrdering Facility: [facility] Address: [address] [place] [address] Performed By: #### L [id number] ####[facility] LABCLIA [id number] [place] [address] [place] Glucose Test strip (U) [Mass/Vol] 1+ Abnormal Negative [facility] Comment on above: Order Comment: Speci men Type: URINE SPECIMENOrdering Facility: [facility] Address: [address] [place] [address] Performed By: #### L [id number] ####[facility] LABCLIA [id number] [place] [address] [place] Hemoglobin Ql (U) Negative Normal Negative [facility] Comment on above: Order Comment: Speci men Type: URINE SPECIMENOrdering Facility: [facility] Address: [address] [place] [address] Performed By: #### L [id number] ####[facility] LABCLIA [id number] [place] [address] [place] Ketones Ql (U) Negative Normal Negative [facility] Comment on above: Order Comment: Speci men Type: URINE SPECIMENOrdering Facility: [facility] Address: [address] [place] [address] Performed By: #### L [id number] ####[facility] LABCLIA [id number] [place] [address] [place] Leukocyte esterase Test strip Ql (U) Trace Abnormal Negative [facility] Comment on above: Order Comment: Speci men Type: URINE SPECIMENOrdering Facility: [facility] Address: [address] [place] [address] Performed By: #### L [id number] ####[facility] LABCLIA [id number] [place] [address] [place] Nitrite Ql (U) Negative Normal Negative [facility] Comment on above: Order Comment: Speci men Type: URINE SPECIMENOrdering Facility: [facility] Address: [address] [place] [address] Performed By: #### L [id number] ####[facility] LABCLIA [id number] [place] [address] [place] pH (U) 5.5 [pH] Normal <8.5 [facility] Comment on above: Order Comment: Speci men Type: URINE SPECIMENOrdering Facility: [facility] Address: [address] [place] [address] Performed By: #### L [id number] ####[facility] LABCLIA [id number] [place] [address] [place] Protein (U) [Mass/Vol] 2+ Abnormal Negative [facility] Comment on above: Order Comment: Speci men Type: URINE SPECIMENOrdering Facility: [facility] Address: [address] [place] [address] Performed By: #### L [id number] ####[facility] LABCLIA [id number] [place] [address] [place] Specific gravity (U) [Rel density] 1.010 Normal 1.005-1.030 [facility] Comment on above: Order Comment: Speci men Type: URINE SPECIMENOrdering Facility: [facility] Address: [address] [place] [address] Performed By: #### L [id number] ####[facility] LABIA [id number] [place] [address] [place] Urobilinogen Ql (U) 0.2 EU/dL Normal 0.2-1.0 EU/dL [facility] Comment on above: Order Comment: Speci men Type: URINE SPECIMENOrdering Facility: [facility] Address: [address] [place] [address] Performed By: #### L [id number] ####[facility] LABIA [id number] [place] [address] [place] URINE CULTURE, ROUTINEon [...] Bacteria identified Cx Nom (U) Performed at: [facility] Bacteria identified Cx Nom (U) [address] [place], [place] [id number] [facility] Bacteria identified Cx Nom (U) It Auditor: Chris Luna PhD, Phone: [phone] [facility] CLIN[facility] Drugs of abuse panel Screen (U)on 04-24-2024 Control Substance Panel, Urine SEE COMMENTS 04/28/2024 10:47 AM [facility] Comment on above: Result Comment: NOTE Test Result Flag Unit RefValue -- Controlled Substance Monitoring, U List Patient's Current HYDROCODONE Medications ADDITIONAL INFORMATION Accuracy and completeness of declared medications on reports solely dependent on information submitted by client. Creatinine, U 51.0 mg/dL Specific [place] 1.010 pH 5.4 Oxidants Negative -- REFERENCE [...] Not Detected ng/mL Cutoff: 25 Tylenol 3 Fyvuazb-9-fmbo- Not Detected ng/mL Cutoff: 100 glucuronide Metabolite of codeine Morphine Not Detected ng/mL Cutoff: 25 Avinza, Marium, MS Contin; Also a minor metabolite (10%) of codeine and can be seen in low concentrations (<2,000 ng/mL) with poppy seed ingestion. Hxkdmtmg-5-rzmd- Not Detected ng/mL Cutoff: 100 glucuronide Metabolite of morphine 6-monoacetylmorphine Not Detected ng/mL Cutoff: 25 Metabolite of heroin Hydrocodone Present A ng/mL Cutoff: 25 Lortab, [place], Vicodin; Also a very minor metabolite of codeine and impurity (<1%) of oxycodone. Norhydrocodone Present A ng/mL Cutoff: 25 Metabolite of hydrocodone Dihydrocodeine Present A ng/mL Cutoff: 25 Metabolite of hydrocodone Hydromorphone Not Detected ng/mL Cutoff: 25 Dilaudid, Exalgo; Also a metabolite of hydrocodone and a minor (<5%) metabolite of morphine. Daabohiubpmzm-7-vhfb- Present A ng/mL Cutoff: 100 glucuronide Metabolite of hydromorphone Oxycodone Not Detected ng/mL Cutoff: 25 Endocet, Percocet, Oxycontin Noroxycodone Not Detected ng/mL Cutoff: 25 Metabolite of oxycodone Oxymorphone Not Detected ng/mL Cutoff: 25 Numorphan, Opana; Also a metabolite of oxycodone. Caklleatnsf-0-dzfm- Not Detected ng/mL Cutoff: 100 glucuronide Metabolite [...] Naloxone Not Detected ng/mL Cutoff: 25 Narcan Xjxzsbar-5-uopi- Not Detected ng/mL Cutoff: 100 glucuronide Metabolite [...] of its metabolites (norhydrocodone and dihydrocodeine), and crlamigqdtjtc-1-sjtq-glucuronide (metabolite of hydromorphone). Suspect use of hydrocodone and/or hydromorphone within the past three days. Trace amounts of hydrocodone can also be found as an impurity in hydromorphone. ADDITIONAL INFORMATION This test was developed and its performance characteristics determined by [facility] in a manner consistent with [...] CNNURSE Nurse Visit (UROSMN) ----- AISLINN WHEELER ([id number]) 1960 F Date Time Provider Department 03/29/24 3:00 PM [facility] UROSMN During your visit today, we recorded the following information about you: Lorie Burrows RN 03/29/2024 2:18 PM Addendum [facility] URODYNAMICS LAB [...] allergy: No Females- Is patient : No Director Pharmacology offered:Patient declines B/O UA: Yes, Negative for [...] Carmenza Espinosa MD 04/02/2024 11:52 AM Addendum [facility] CENTER FOR [...] Patient position - Sitting Radiologic Findings: A cafe server radiograph was obtained. The bony and soft tissue structures are within normal. 147 ccs contrast were used to fill the bladder. The bladder outline is irregular/trabeculated and abnormal shaped appearing. There is no ureteral reflux. During the voiding phase there is abnormal bladder neck opening and urethra is not visualized. Bladder emptying is not visualized Read (more content not included)... Normal [facility] CNOVon 03-26-2024 CNOV Office Visit (UROLAV ) ----- AISLINN WHEELER ([id number]) 1960 F Date Time Provider Department 03/26/24 [...] Carmenza Espinosa MD 03/26/2024 11:54 AM Signed [facility] UROLOGY VISIT CENTER FOR FEMALE PELVIC [...] her bladder. 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 [facility] DIP, URINE (POC)on 2023 BILIRUBIN UA (POCT) Negative Negative [facility] CLARITY UA (POCT) Cloudy [facility] COLOR UA (POCT) Light yellow [facility] GLUCOSE UA (POCT) Negative Negative mg/dL [facility] Hemoglobin Ql (U) Trace-intact Abnormal Negative [facility] Interpretation and review of laboratory results Abnormal [facility] KETONE UA (POCT) Negative Negative mg/dL [facility] LEUKOCYTES UA (POCT) Moderate Abnormal Negative [facility] NITRITE UA (POCT) Negative Negative [facility] PH UA (POCT) 6.0 4.5 - 8.0 [facility] Protein Ql (U) 100 mg/dL Abnormal Negative [facility] SPECIFIC GRAVITY UA (POCT) 1.020 1.005 - 1.030 [facility] UROBILINOGEN UA (POCT) 0.2 Normal E.U./dL [facility] Location:[facility], [address] , [place], [place], [address] [facility] POINT OF CARE [facility] CNPNon 02-26-2024 CNPN Telephone (URFHR) ----- AISLINN WHEELER ([id number]) 1960 F Date Time Provider Department 02/26/24 FLAVIO COON [facility] During your visit today, we recorded the following information about you: Flavio Coon RN 02/26/2024 2:46 PM Signed Pt LVM asking for her CT scan results. Noted in pt chart was an unread message from regarding the most recent CT scan. LVM for pt and let her know about [facility] and provided number if pt has [...] Encounter Status:Closed by FLAVIO COON on 02/26/24 [facility] ----- AISLINN WHEELER ([id number]) 1960 F Date Time Provider Department 02/12/24 VONNIE WILDER [facility] During your visit today, we recorded [...] Status:Closed by VONNIE WILDER on 02/12/24 Normal [facility] CT Kidney WO and W contrast IVOrdered By: Ccf Provider on 02-02-2024 Interpretation and review of laboratory results Abnormal [facility] Radiology Result ACTIONABLE Abnormal [facility] Comment on above: This report contains [...] contact your provider for the next steps. [facility] CT Kidney WO and W contrast [...] be communicated with the ordering provider via [employer] staff message or phone message by Imaging Support Services within 2 business days of report finalization. --END OF FINDING-- Transcribe Date/Time: Feb 02 2024 9:09A Dictated by: AYAZ ADMAS MD This examination was interpreted and the report reviewed and electronically signed by: AYAZ ADAMS MD on Feb 02 2024 9:42AM EST Thank you for allowing us to participate in the care of your patient. Should there be any questions regarding this interpretation, please call [phone]. If you are unable to reach us at the number above, please feel free to contact [facility] at [phone]. DIVISION OF RADIOLOGY * * *Final Report* * * DATE OF EXAM: Feb 01 2024 3:26PM [facility] 0560 - CT UROGRAM WO/W [...] No additional findings. DIVISION OF RADIOLOGY Provider, [facility] - 02/02/2024 * * *Final Report* * * DATE OF EXAM: Feb 01 2024 3:26PM [facility] 0560 - CT UROGRAM WO/W [...] be communicated with the ordering provider via [employer] staff message or phone message by Imaging [...] any questions regarding this interpretation, please call [phone]. If you are unable to reach us at the number above, please feel free to contact [facility] eRadiology at [phone]. [facility] CREATININE BLDOrdered By: James Murguia on 02-01-2024 Creatinine [Mass/Vol] 1.78 mg/dL High 0.58 - 0.96 mg/dL [facility] GFR/1.73 sq M.predicted among non-blacks MDRD (S/P/Bld) [Vol rate/Area] 31 mL/min/{1.73_m2} Low - PINF [facility] Comment on above: Estimated Glomerular Filtration [...] Interpretation and review of laboratory results Abnormal [facility] CREATININE BLDon 02-01-2024 Creatinine [Mass/Vol] 1.78 mg/dL High 0.58-0.[address] [facility] Comment on above: Order Comment: Speci men Type: BLOOD SPECIMENOrdering Facility: [facility] Address: [address] [id number] Performed By: #### C RET1 ####[facility] LABCLIA [id number] [place] [address] Creatinine and Glomerular filtration rate.predicted panel (S/P/Bld) 31 mL/min/1.73m??? Low >=60 [facility] Comment on above: Order Comment: Speci men Type: BLOOD SPECIMENOrdering Facility: [facility] Address: [address] [place] [address] Result Comment: Donna mated Glomerular Filtration Rate [...] actual GFR. Performed By: #### C RET1 ####[facility] LABCLIA [id number] [place] [address] CT Kidney WO and W contrast Mirna 02-01-2024 Radiology Study observation (narrative) [facility] CT UROGRAM WO/W IVCONon 01-19 CT UROGRAM WO/W IVCON * * *Final Report* * * DATE OF EXAM: Feb 01 2024 3:26PM [facility] 0560 - CT UROGRAM WO/W [...] be communicated with the ordering provider via [employer] staff message or phone message by Imaging [...] any questions regarding this interpretation, please call [phone]. If you are unable to reach us at the number above, please feel free to contact [facility] at [phone]. [id number] ACTIONABLE Invalid Interpretation Code [facility] CNOVon 01-12-2024 CNOV Office Visit (URFMOB ) ----- AISLINN WHEELER ([id number]) 1960 F Date Time Provider Department 01/12/24 1:50 PM TAURUS BALLARD During your visit today, we recorded the following information about you: Pulse Blood pressure 75/minute 142/69 Taurus Ballard MD 01/12/2024 2:43 PM Signed [facility] FOLLOW-UP PATIENT HISTORY AND [...] urogram Will refer to Dr. Tamanna Ruiz APRN.E BUSINESS CONSULTANT Attending Note I have personally performed a [...] her ki (more content not included)... Normal [facility] UA DIP, URINE (POC)on 2023 BILIRUBIN UA (POCT) Negative Negative [facility] CLARITY UA (POCT) Clear [facility] COLOR UA (POCT) Yellow [facility] GLUCOSE UA (POCT) 100 mg/dL Abnormal [facility] Hemoglobin Ql (U) Trace-intact Abnormal Negative [facility] Interpretation and review of laboratory results Abnormal [facility] KETONE UA (POCT) Negative Negative mg/dL [facility] LEUKOCYTES UA (POCT) Small Abnormal Negative [facility] NITRITE UA (POCT) Negative Negative [facility] PH UA (POCT) 5.5 4.5 - 8.0 [facility] Protein Ql (U) 100 mg/dL Abnormal Negative [facility] SPECIFIC GRAVITY UA (POCT) 1.015 1.005 - 1.030 [facility] UROBILINOGEN UA (POCT) 0.2 Normal E.U./dL [facility] Location:[facility], [address] [address] [place], [place], [address] [place] [address] POINT OF CARE [facility] ED Note-Physicianon 10-30-19 24 ED Note-Physician [id number]#1.00TIFF Normal [facility] Lab Reportson 10-30-2023 Lab Reports [id number]#1.00TIFF Normal [facility] Lab Reports [id number]#1.00TIFF Normal [facility] Urology Office/Clinic Noteon 10-26-2023 Urology Office/Clinic Note Chief Complaint S/P to Cysto with Botox HPI Staff KML pt. Here for f/u to Botox 100u done 05/22/23. R/s'd appt from 06/28/23. Previous dx: renal cyst, mixed incontinence, feeling of incomplete bladder emptying, glucosuria. Pt was referred to Dr. Ballard at [facility] for evaluation of robotic left cyst decortication. [...] Assessment/Plan 1. 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 [...] procedure. This is confusing bc review of [facility]'s op report shows completely normal events [...] kidney measuri (more content not included)... Normal [facility] Comment on above: Result Comment: [...] PA-C, EMELINA When: Where: [address] [place] [address] Medications What How Much When Instructions Unchanged [...] including vitamins, herbs, eye drops, creams, and ovjs-vme-uuhmrfm medicines. ? Any problems you or family [...] Do no (more content not included)... Normal [facility] Patient Educationon 10-25-19 Patient Education [...] including vitamins, herbs, eye drops, creams, and bfez-cdb-hyiuhdv medicines. ? Any problems you or family [...] tells you to take them. ? Taking bbry-wqc-cuslzpf medicines, vitamins, herbs, and supplements. General instructions [...] these instructions at home: Medicines ? Take neaj-wuy-hztmbvn and prescription medicines only as told by [...] health ca (more content not included)... Normal [facility]Non [facility]2023 [facility]FV[facility] ----- AISLINN WHEELER ([id number]) 1960 F Date Time Provider Department 09/27/23 DREW ALSTON FVPRAD During your visit today, we recorded the following information about you: Drew Alston, Research Coordinator 09/27/2023 2:33 PM Signed IRB# [id number]: Vascular events in patients undergoing same-day nonCardiac surgery - [facility] PI: Mary Rojas MD, LETY, FASA. Outcomes Research Department. Anesthesia [place]. [facility]. Aislinn Wheeler was unavailable at the listed phone number. We will attempt to contact the patient through [employer] message. Drew Esqueda Research Coordinator Research Coordinator Allergies As of Date: 09/27/2023 Noted Allergy Reaction LATEX 02/05/2020 2 - Rash Comments: Added based on information entered during case entry, please review and add reactions, type, and severity as needed Date Reviewed: 09/03/2023 Reviewed by: Chuck Kirk, REY - Fully Assessed Reason for Visit: Research F/U [958] Prescriptions as of 09/27/2023 - pregabalin (LYRICA) [...] Encounter Status:Closed by DREW ALSTON on 09/27/23 [facility] 09-26-2023 CNPN Telephone (FVPRAD) ----- AISLINN WHEELER ([id number]) 1960 F Date Time Provider Department 09/26/23 DREW ALSTON FVPRAD During your visit today, we recorded the following information about you: Drew Alston, Research Coordinator 09/26/2023 3:32 PM Signed IRB# [id number]: Vascular events in patients undergoing same-day nonCardiac surgery - [place] PI: Mary Rojas MD, LETY, FASA. Outcomes Research Department. Anesthesia [place]. [facility]. Aislinn Wheeler was unavailable at the [...] Fully Assessed Reason for Visit: Research F/U [678] Prescriptions as of 09/26/2023 - pregabalin (LYRICA) [...] Encounter Status:Closed by DREW ALSTON on 09/26/23 [facility] HNO ID: [id number] Author: ANTHONY BARROW MD Service: Hospital Medicine [...] Time Provider Department Center 10/06/2023 1:00 PM [facility] BRITTANIE VALDES [facility] Brittanie 10/06/2023 2:00 PM [facility] SHABBIR KUMAR [facility] Brittanie 10/11/2023 1:50 PM Taurus Ballard MD [facility] ALLERGIES Allergen Reactions Latex Rash [...] ALLIED HEALTH[facility] 09-03-2023 [facility] HNO ID: [id number] Author: NICOL MILLIGAN RT(R) Service: Radiology Author [...] Anion gap [Moles/Vol] 10 mmol/L Normal 9-18 [facility] Comment on above: Order Comment: Speci men Type: BLOOD SPECIMEN [facility] Address: [address] [place], [place] [address] Performed By: #### 2 4321-2 #### [facility] CLIA [id number] [place] [address] [place] Calcium [Mass/Vol] 8.8 mg/dL Normal 8.5-10.2 [facility] Comment on above: Order Comment: Speci men Type: BLOOD SPECIMEN [facility] Address: [address] [place] [address] Performed By: #### 2 4321-2 #### [facility] CLIA [id number] [address] [place] [address] [place] Chloride [Moles/Vol] 103 mmol/L Normal 97-105 [facility] Comment on above: Order Comment: Speci men Type: BLOOD SPECIMEN Ordering Facility: [facility] Address: [address] [place] [address] Performed By: #### 2 4321-2 #### [facility] CLIA [id number] [address] [place] [address] [place] CO2 [Moles/Vol] 23 mmol/L Normal 22-30 [facility] Comment on above: Order Comment: Speci men Type: BLOOD SPECIMEN Ordering Facility: [facility] Address: [address] [place] [address] Performed By: #### 2 4321-2 #### [facility] CLIA [id number] [address] [place] [address] [place] Creatinine [Mass/Vol] 1.29 mg/dL High 0.58-0.96 [facility] Comment on above: Order Comment: Speci men Type: BLOOD SPECIMEN Ordering Facility: [facility] Address: [address] [place] [address] Performed By: #### 2 4321-2 #### [facility] CLIA [id number] [address] [place] [address] [place] Creatinine and Glomerular filtration rate.predicted panel (S/P/Bld) 46 mL/min/1.73m??? Low >=60 [facility] Comment on above: Order Comment: Speci men Type: BLOOD SPECIMEN Ordering Facility: [facility] Address: [address] [place] [address] Result Comment: Donna mated Glomerular Filtration Rate [...] GFR. Performed By: #### 2 4321-2 #### [facility] CLIA [id number] [place] [address] [place] Glucose [Mass/Vol] 123 mg/dL High 74-99 [facility] Comment on above: Order Comment: [place] Type: BLOOD SPECIMEN Ordering Facility: [facility] Address: [address] [place] [address] Result Comment: The [place] Diabetes Association (ADA) provides guidance for cutoff [...] Standards of Medical Care in Diabetes 2016, [place] [employer]. Diabetes Care. 2016.39(Suppl 1). Performed By: #### 2 4321-2 #### [facility] CLIA [id number] [place] [address] [place] Potassium [Moles/Vol] 5.0 mmol/L Normal 3.7-5.1 [facility] Comment on above: Order Comment: [place] Type: BLOOD SPECIMEN Ordering Facility: [facility] Address: [address] [place] [address] Performed By: #### 2 4321-2 #### [facility] CLIA [id number] [address] [place] [address] [place] Sodium [Moles/Vol] 136 mmol/L Normal 136-144 [facility] Comment on above: Order Comment: [place] Type: BLOOD SPECIMEN Ordering Facility: [facility] Address: [address] [place] [address] Performed By: #### 2 4321-2 #### [facility] CLIA [id number] [address] [place] [address] [place] Urea nitrogen [Mass/Vol] 22 mg/dL High 7-21 [facility] Comment on above: Order Comment: Speci men Type: BLOOD SPECIMEN Ordering Facility: [facility] Address: [address] [place] [address] Performed By: #### 2 4321-2 #### [facility] CLIA [id number] [address] [place] [address] [place] CBC panel Auto (Bld)on 09-03 Erythrocyte distribution width (RBC) [Ratio] 14.6 % Normal 11.5-15.0 [facility] Comment on above: Order Comment: Speci men Type: BLOOD SPECIMEN Ordering Facility: [facility] Address: [address] [place] [address] Performed By: #### B HB, 59725-2 #### [facility] CLIA [id number] [address] [place] [address] [place] Hematocrit (Bld) [Volume fraction] 28.7 % Low 36.0-46.0 [facility] Comment on above: Order Comment: Speci men Type: BLOOD SPECIMEN Ordering Facility: [facility] Address: [address] [place] [address] Performed By: #### B [place], 93802-8 #### [facility] CLIA [id number] [address] [place] [address] [place] Hemoglobin (Bld) [Mass/Vol] 8.9 g/dL Low 11.5-15.5 [facility] Comment on above: Order Comment: Speci men Type: BLOOD SPECIMEN Ordering Facility: [facility] Address: [address] [place] [address] Performed By: #### B HB, 41242-7 #### [facility] CLIA [id number] [address] [place] [address] [place] MCH (RBC) [Entitic mass] 24.1 pg Low 26.0-34.0 [facility] Comment on above: Order Comment: Speci men Type: BLOOD SPECIMEN Ordering Facility: [facility] Address: [address] [place] [address] Performed By: #### B HB, #### [facility] CLIA [id number] [address] [place] [address] [place] MCHC (RBC) [Mass/Vol] 31.0 g/dL Normal 30.5-36.0 [facility] Comment on above: Order Comment: Speci men Type: BLOOD SPECIMEN Ordering Facility: [facility] Address: [address] [place] [address] Performed By: #### B HB, #### [facility] CLIA [id number] [address] [place] [address] [place] MCV (RBC) [Entitic vol] 77.6 fL Low 80.0-100.0 [facility] Comment on above: Order Comment: Speci men Type: BLOOD SPECIMEN Ordering Facility: [facility] Address: [address] [place] [address] Performed By: #### B HB, #### [facility] CLIA [id number] [address] [place] [address] [place] Nucleated RBC (Bld) [#/Vol] 10*3/uL Normal <0.01 [facility] Comment on above: Order Comment: Speci men Type: BLOOD SPECIMEN Ordering Facility: [facility] Address: [address] [place] [address] Performed By: #### B HB, #### [facility] CLIA [id number] [address] [place] [address] [place] Platelet mean volume (Bld) [Entitic vol] 10.8 fL Normal 9.0-12.7 [facility] Comment on above: Order Comment: Speci men Type: BLOOD SPECIMEN Ordering Facility: [facility] Address: [address] [place] [address] Performed By: #### B HB, #### [facility] CLIA [id number] [address] [place] [address] [place] Platelets (Bld) [#/Vol] 334 10*3/uL Normal 150-400 [facility] Comment on above: Order Comment: Speci men Type: BLOOD SPECIMEN Ordering Facility: [facility] Address: [address] [place] [address] Performed By: #### B HB, 03658-8 #### [facility] CLIA [id number] [address] [place] [address] [place] RBC (Bld) [#/Vol] 3.70 10*6/uL Low 3.90-5.20 [facility] Comment on above: Order Comment: Speci men Type: BLOOD SPECIMEN Ordering Facility: [facility] Address: [address] [place] [address] Performed By: #### B HB, 07245-1 #### [facility] CLIA [id number] [place] [address] [place] WBC (Bld) [#/Vol] 6.44 10*3/uL Normal 3.70-11.00 [facility] Comment on above: Order Comment: Speci men Type: BLOOD SPECIMEN Ordering Facility: [facility] Address: [address] [place] [address] Performed By: #### B HB, 30611-8 #### [facility] CLIA [id number] [address] [place] [address] [place] FOOT WO [...] NO EVIDENCE OF OSTEOMYELITIS ON THIS EXAMINATION. Professor Of Political Science: GUILLE Transcribe Date/Time: Sep 03 2023 11:22P Dictated by : FINESSE BUTLER MD This examination was interpreted and the report reviewed and electronically signed by: FINESSE BUTLER MD on Sep 03 2023 11:27PM EST [id number] Normal [facility] Basic metabolic 2000 panelon 09-02-2023 Anion gap [Moles/Vol] 9 mmol/L Normal 9-18 [facility] Comment on above: Order Comment: [facility] Type: BLOOD SPECIMEN Ordering Facility: [facility] Address: [address] [place] [address] Performed By: #### B HB, 87431-2 #### [facility] CLIA [id number] [address] [place] [address] [place] Calcium [Mass/Vol] 8.1 mg/dL Low 8.5-10.2 [facility] Comment on above: Order Comment: Speci men Type: BLOOD SPECIMEN Ordering Facility: [facility] Address: [address] [place] [address] Performed By: #### B HB, 37167-9 #### [facility] CLIA [id number] [address] [place] [address] [place] Chloride [Moles/Vol] 106 mmol/L High 97-105 [facility] Comment on above: Order Comment: Speci [facility] Type: BLOOD SPECIMEN Ordering Facility: [facility] Address: [address] [place] [address] Performed By: #### B HB, 12532-3 #### [facility] CLIA [id number] [address] [place] [address] [place] CO2 [Moles/Vol] 22 mmol/L Normal 22-30 [facility] Comment on above: Order Comment: [place] Type: BLOOD SPECIMEN Ordering Facility: [facility] Address: [address] [place] [address] Performed By: #### B HB, 77842-5 #### [facility] CLIA [id number] [address] [place] [address] [place] Creatinine [Mass/Vol] 1.30 mg/dL High 0.58-0.96 [facility] Comment on above: Order Comment: [place] Type: BLOOD SPECIMEN Ordering Facility: [facility] Address: [address] [place] [address] Performed By: #### B HB, 90002-2 #### [facility] CLIA [id number] [address] [place] [address] [place] Creatinine and Glomerular filtration rate.predicted panel (S/P/Bld) 46 mL/min/1.73m??? Low >=60 [facility] Comment on above: Order Comment: [place] Type: BLOOD SPECIMEN Ordering Facility: [facility] Address: [address] [place] [address] Result Comment: Donna mated Glomerular Filtration Rate [...] actual GFR. Performed By: #### B HB, 89835-2 #### [facility] CLIA [id number] [place] [address] [place] Glucose [Mass/Vol] 192 mg/dL High 74-99 [facility] Comment on above: Order Comment: [place] Type: BLOOD SPECIMEN Ordering Facility: [facility] Address: [address] [place] [address] Result Comment: The [place] Diabetes Association (ADA) provides guidance for cutoff [...] Standards of Medical Care in Diabetes 2016, [place] [employer]. Diabetes Care. 2016.39(Suppl 1). Performed By: #### B HB, 00802-6 #### [facility] CLIA [id number] [address] [place] [address] [place] Potassium [Moles/Vol] 4.9 mmol/L Normal 3.7-5.1 [facility] Comment on above: Order Comment: [place] Type: BLOOD SPECIMEN Ordering Facility: [facility] Address: [address] [place] [address] Performed By: #### B HB, 45127-0 #### [facility] CLIA [id number] [address] [place] [address] [place] Sodium [Moles/Vol] 137 mmol/L Normal 136-144 [facility] Comment on above: Order Comment: [place] Type: BLOOD SPECIMEN Ordering Facility: [facility] Address: [address] [place] [address] Performed By: #### B HB, 62451-5 #### [facility] CLIA [id number] [address] [place] [address] [place] Urea nitrogen [Mass/Vol] 17 mg/dL Normal 7-21 [facility] Comment on above: Order Comment: [place] Type: BLOOD SPECIMEN Ordering Facility: [facility] Address: [address] [place] [address] Performed By: #### B HB, 43161-3 #### [facility] CLIA [id number] [address] [place] [address] [place] CBC panel Auto (Bld)on 09-02 Erythrocyte distribution width (RBC) [Ratio] 14.6 % Normal 11.5-15.0 [facility] Comment on above: Order Comment: Speci men Type: BLOOD SPECIMEN Ordering Facility: [facility] Address: [address] [place] [address] Performed By: #### B HB, 05138-0 #### [facility] CLIA [id number] [address] [place] [address] [place] Hematocrit (Bld) [Volume fraction] 28.4 % Low 36.0-46.0 [facility] Comment on above: Order Comment: Speci men Type: BLOOD SPECIMEN Ordering Facility: [facility] Address: [address] [place] [address] Performed By: #### B HB, #### [facility] CLIA [id number] [address] [place] [address] [place] Hemoglobin (Bld) [Mass/Vol] 8.9 g/dL Low 11.5-15.5 [facility] Comment on above: Order Comment: Speci men Type: BLOOD SPECIMEN Ordering Facility: [facility] Address: [address] [place] [address] Performed By: #### B HB, #### [facility] CLIA [id number] [address] [place] [address] [place] MCH (RBC) [Entitic mass] 24.2 pg Low 26.0-34.0 [facility] Comment on above: Order Comment: Speci men Type: BLOOD SPECIMEN Ordering Facility: [facility] Address: [address] [place] [address] Performed By: #### B HB, #### [facility] CLIA [id number] [address] [place] [address] [place] MCHC (RBC) [Mass/Vol] 31.3 g/dL Normal 30.5-36.0 [facility] Comment on above: Order Comment: Speci men Type: BLOOD SPECIMEN Ordering Facility: [facility] Address: [address] [place] [address] Performed By: #### B HB, 98590-0 #### [facility] CLIA [id number] [address] [place] [address] [place] MCV (RBC) [Entitic vol] 77.2 fL Low 80.0-100.0 [facility] Comment on above: Order Comment: Speci men Type: BLOOD SPECIMEN Ordering Facility: [facility] Address: [address] [place] [address] Performed By: #### B HB, #### [facility] CLIA [id number] [address] [place] [address] [place] Nucleated RBC (Bld) [#/Vol] 10*3/uL Normal <0.01 [facility] Comment on above: Order Comment: Speci men Type: BLOOD SPECIMEN Ordering Facility: [facility] Address: [address] [place] [address] Performed By: #### B HB, #### [facility] CLIA [id number] [address] [place] [address] [place] Platelet mean volume (Bld) [Entitic vol] 10.4 fL Normal 9.0-12.7 [facility] Comment on above: Order Comment: Speci men Type: BLOOD SPECIMEN Ordering Facility: [facility] Address: [address] [place] [address] Performed By: #### B HB, #### [facility] CLIA [id number] [address] [place] [address] [place] Platelets (Bld) [#/Vol] 285 10*3/uL Normal 150-400 [facility] Comment on above: Order Comment: Speci men Type: BLOOD SPECIMEN Ordering Facility: [facility] Address: [address] [place] [address] Performed By: #### B HB, #### [facility] CLIA [id number] [address] [place] [address] [place] RBC (Bld) [#/Vol] 3.68 10*6/uL Low 3.90-5.20 [facility] Comment on above: Order Comment: Speci men Type: BLOOD SPECIMEN Ordering Facility: [facility] Address: [address] [place] [address] Performed By: #### B HB, 23243-4 #### [facility] CLIA [id number] [address] [place] [address] [place] WBC (Bld) [#/Vol] 5.94 10*3/uL Normal 3.70-11.00 [facility] Comment on above: Order Comment: Speci men Type: BLOOD SPECIMEN Ordering Facility: [facility] Address: [address] [place] [address] Performed By: #### B HB, 58956-4 #### [facility] CLIA [id number] [address] [place] [address] [place] Bacteria Ur Culton Bacteria identified Cx Nom (U) CULTURE, URINE: No growth (<1,000 CFU/ml) Normal [facility] Comment on above: Performed By: #### 6 30-4 #### [facility] CLIA [id number] [address] [facility] [facility] [place] [address] [id number] [place] [address] [place] Basic metabolic 2000 panelon 09-01-2023 Anion gap [Moles/Vol] 10 mmol/L Normal 9-18 [facility] Comment on above: Order Comment: Speci men Type: BLOOD SPECIMEN Ordering Facility: [facility] Address: [address] [place] [address] Performed By: #### B HB, #### [facility] CLIA [id number] [address] [place] [address] [place] Calcium [Mass/Vol] 7.9 mg/dL Low 8.5-10.2 [facility] Comment on above: Order Comment: Speci men Type: BLOOD SPECIMEN Ordering Facility: [facility] Address: [address] [place] [address] Performed By: #### B HB, 56443-0 #### [facility] CLIA [id number] [address] [place] [address] [place] Chloride [Moles/Vol] 108 mmol/L High 97-105 [facility] Comment on above: Order Comment: Speci men Type: BLOOD SPECIMEN Ordering Facility: [facility] Address: [address] [place] [address] Performed By: #### B HB, 30191-3 #### [facility] CLIA [id number] [address] [place] [address] [place] CO2 [Moles/Vol] 20 mmol/L Low 22-30 [facility] Comment on above: Order Comment: Speci men Type: BLOOD SPECIMEN Ordering Facility: [facility] Address: [address] [place] [address] Performed By: #### B HB, 96316-4 #### [facility] CLIA [id number] [address] [place] [address] [place] Creatinine [Mass/Vol] 1.39 mg/dL High 0.58-0.96 [facility] Comment on above: Order Comment: Speci men Type: BLOOD SPECIMEN Ordering Facility: [facility] Address: [address] [place] [address] Performed By: #### B HB, 69207-2 #### [facility] CLIA [id number] [address] [place] [address] [place] Creatinine and Glomerular filtration rate.predicted panel (S/P/Bld) 42 mL/min/1.73m??? Low >=60 [facility] Comment on above: Order Comment: Speci men Type: BLOOD SPECIMEN Ordering Facility: [facility] Address: [address] [place] [address] Result Comment: Donna mated Glomerular Filtration Rate [...] actual GFR. Performed By: #### B HB, 77631-8 #### [facility] CLIA [id number] [place] [address] [place] Glucose [Mass/Vol] 74 mg/dL Normal 74-99 [facility] Comment on above: Order Comment: Speci men Type: BLOOD SPECIMEN Ordering Facility: [facility] Address: [address] [place] [address] Result Comment: The [place] Diabetes Association (ADA) provides guidance for cutoff [...] Standards of Medical Care in Diabetes 2016, [place] [employer]. Diabetes Care. 2016.39(Suppl 1). Performed By: #### B HB, 77057-0 #### [facility] CLIA [id number] [address] [place] [address] [place] Potassium [Moles/Vol] 4.7 mmol/L Normal 3.7-5.1 [facility] Comment on above: Order Comment: Speci men Type: BLOOD SPECIMEN Ordering Facility[facility] Address: [address] [place] [address] Performed By: #### B HB, 40124-2 #### [facility] CLIA [id number] [address] [place] [address] [place] Sodium [Moles/Vol] 138 mmol/L Normal 136-144 [facility] Comment on above: Order Comment: Speci men Type: BLOOD SPECIMEN Ordering Facility[facility] Address: [address] [place] [address] Performed By: #### B HB, 72938-5 #### [facility] CLIA [id number] [address] [place] [address] [place] Urea nitrogen [Mass/Vol] 25 mg/dL High 7- [facility] Comment on above: Order Comment: Speci men Type: BLOOD SPECIMEN Ordering Facility: [facility] Address: [address] [place] [address] Performed By: #### B HB, 93005-7 #### [facility] CLIA [id number] [address] [place] [address] [place] CBC panel Auto (Bld)on 09-01 Erythrocyte distribution width (RBC) [Ratio] 14.7 % Normal 11.5-15.0 [facility] Comment on above: Order Comment: Speci men Type: BLOOD SPECIMEN Ordering Facility: [facility] Address: [address] [place] [address] Performed By: #### B HB, #### [facility] CLIA [id number] [address] [place] [address] [place] Hematocrit (Bld) [Volume fraction] 29.4 % Low 36.0-46.0 [facility] Comment on above: Order Comment: Speci men Type: BLOOD SPECIMEN Ordering Facility: [facility] Address: [address] [place] [address] Performed By: #### B HB, #### [facility] CLIA [id number] [address] [place] [address] [place] Hemoglobin (Bld) [Mass/Vol] 9.1 g/dL Low 11.5-15.5 [facility] Comment on above: Order Comment: Speci men Type: BLOOD SPECIMEN Ordering Facility: [facility] Address: [address] [place] [address] Performed By: #### B HB, #### [facility] CLIA [id number] [address] [place] [address] [place] MCH (RBC) [Entitic mass] 24.4 pg Low 26.0-34.0 [facility] Comment on above: Order Comment: Speci men Type: BLOOD SPECIMEN Ordering Facility: [facility] Address: [address] [place] [address] Performed By: #### B HB, 40559-2 #### [facility] CLIA [id number] [address] [place] [address] [place] MCHC (RBC) [Mass/Vol] 31.0 g/dL Normal 30.5-36.0 [facility] Comment on above: Order Comment: Speci men Type: BLOOD SPECIMEN Ordering Facility: [facility] Address: [address] [place] [address] Performed By: #### B HB, #### [facility] CLIA [id number] [address] [place] [address] [place] MCV (RBC) [Entitic vol] 78.8 fL Low 80.0-100.0 [facility] Comment on above: Order Comment: Speci men Type: BLOOD SPECIMEN Ordering Facility: [facility] Address: [address] [place] [address] Performed By: #### B HB, #### [facility] CLIA [id number] [address] [place] [address] [place] Nucleated RBC (Bld) [#/Vol] 10*3/uL Normal <0.01 [facility] Comment on above: Order Comment: Speci men Type: BLOOD SPECIMEN Ordering Facility: [facility] Address: [address] [place] [address] Performed By: #### B HB, #### [facility] CLIA [id number] [address] [place] [address] [place] Platelet mean volume (Bld) [Entitic vol] 10.8 fL Normal 9.0-12.7 [facility] Comment on above: Order Comment: Speci men Type: BLOOD SPECIMEN Ordering Facility: [facility] Address: [address] [place] [address] Performed By: #### B HB, #### [facility] CLIA [id number] [address] [place] [address] [place] Platelets (Bld) [#/Vol] 275 10*3/uL Normal 150-400 [facility] Comment on above: Order Comment: Speci men Type: BLOOD SPECIMEN Ordering Facility: [facility] Address: [address] [place] [address] Performed By: #### B HB, #### [facility] CLIA [id number] [address] [place] [address] [place] RBC (Bld) [#/Vol] 3.73 10*6/uL Low 3.90-5.20 [facility] Comment on above: Order Comment: Speci men Type: BLOOD SPECIMEN Ordering Facility: [facility] Address: [address] [place] [address] Performed By: #### B HB, 74234-9 #### [facility] CLIA [id number] [address] [place] [address] [place] WBC (Bld) [#/Vol] 7.48 10*3/uL Normal 3.70-11.00 [facility] Comment on above: Order Comment: Speci men Type: BLOOD SPECIMEN Ordering Facility: [facility] Address: [address] [place] [address] Performed By: #### B HB, 30180-5 #### [facility] CLIA [id number] [address] [place] [address] OF [facility] CONSULTon 09-01-2023 CONSULT HNO ID: [id number] Author: NORMAN ROUSSEAU RN Service: ? Author [...] 2023 TIME: 10:44 AM PAGER/CONTACT #: Normal [facility] Magnesium SerPl-mCncon 09-01 Magnesium [Mass/Vol] 1.5 mg/dL Low 1.7-2.3 [facility] Comment on above: Order Comment: Speci men Type: BLOOD SPECIMEN Ordering Facility: [facility] Address: [address] [place] [address] Performed By: #### [place], [id number] #### [facility] CLIA [id number] [address] [place] [address] OF [facility] URINALYSIS, REFLEX MICROSCOP ICon 09-01-2023 Bacteria LM.HPF (Urine sed) [#/Area] Few Abnormal None Seen [facility] Comment on above: Order Comment: Speci men Type: BLOOD SPECIMEN Ordering Facility: [facility] Address: [address] [place] [address] Performed By: #### B HB, #### [facility] CLIA [id number] [address] [place] [address] [place] Bilirubin Ql (U) Negative Normal Negative [facility] Comment on above: Order Comment: Speci men Type: BLOOD SPECIMEN Ordering Facility: [facility] Address: [address] [place] [address] Performed By: #### B HB, #### [facility] CLIA [id number] [address] [place] [address] [place] Clarity (Unsp spec) Turbid Abnormal Clear [facility] Comment on above: Order Comment: Speci men Type: BLOOD SPECIMEN Ordering Facility: [facility] Address: [address] [place] [address] Performed By: #### B HB, #### [facility] CLIA [id number] [address] [place] [address] [place] Color (U) Light Yellow Normal Yellow [facility] Comment on above: Order Comment: Speci men Type: BLOOD SPECIMEN Ordering Facility: [facility] Address: [address] [place] [address] Performed By: #### B HB, #### [facility] CLIA [id number] [address] [place] [address] [place] Epithelial cells LM.HPF (Urine sed) [#/Area] Few Normal [facility] Comment on above: Order Comment: Speci men Type: BLOOD SPECIMEN Ordering Facility: [facility] Address: [address] [place] [address] Performed By: #### B HB, #### [facility] CLIA [id number] [address] [place] [address] [place] Glucose Test strip (U) [Mass/Vol] Negative Normal Trace, Negative [facility] Comment on above: Order Comment: Speci men Type: BLOOD SPECIMEN Ordering Facility: [facility] Address: [address] [place] [address] Performed By: #### B HB, #### [facility] CLIA [id number] [address] [place] [address] [place] Hemoglobin Ql (U) 1+ Abnormal Negative, Trace [facility] Comment on above: Order Comment: Speci men Type: BLOOD SPECIMEN Ordering Facility: [facility] Address: [address] [place] [address] Performed By: #### B HB, #### [facility] CLIA [id number] [address] [place] [address] [place] Ketones Ql (U) Negative Normal Negative, Trace [facility] Comment on above: Order Comment: Speci men Type: BLOOD SPECIMEN Ordering Facility: [facility] Address: [address] [place] [address] Performed By: #### B HB, #### [facility] CLIA [id number] [address] [place] [address] [place] Leukocyte esterase Test strip Ql (U) 500 Yuan/uL Abnormal Negative, 25 Yuan/uL [facility] Comment on above: Order Comment: Speci men Type: BLOOD SPECIMEN Ordering Facility: [facility] Address: [address] [place] [address] Performed By: #### B HB, #### [facility] CLIA [id number] [address] [place] [address] [place] Nitrite Ql (U) Negative Normal Negative [facility] Comment on above: Order Comment: Speci men Type: BLOOD SPECIMEN Ordering Facility: [facility] Address: [address] [place] [address] Performed By: #### B HB, #### [facility] CLIA [id number] [address] [place] [address] [place] pH (U) 6.0 [pH] Normal 5.0-8.0 [facility] Comment on above: Order Comment: Speci men Type: BLOOD SPECIMEN Ordering Facility: [facility] Address: [address] [place] [address] Performed By: #### B HB, 36328-6 #### [facility] CLIA [id number] [address] [place] [address] [place] Protein (U) [Mass/Vol] 1+ Abnormal Trace, Negative [facility] Comment on above: Order Comment: Speci men Type: BLOOD SPECIMEN Ordering Facility: [facility] Address: [address] [place] [address] Performed By: #### B HB, 61816-6 #### [facility] CLIA [id number] [address] [place] [address] [place] RBC LM.HPF (Urine sed) [#/Area] /[HPF] Abnormal 0-3 /HPF [facility] Comment on above: Order Comment: Speci men Type: BLOOD SPECIMEN Ordering Facility: [facility] Address: [address] [place] [address] Performed By: #### B HB, #### [facility] CLIA [id number] [address] [place] [address] [place] Specific gravity (U) [Rel density] 1.011 Normal 1.005-1.030 [facility] Comment on above: Order Comment: Speci men Type: BLOOD SPECIMEN Ordering Facility: [facility] Address: [address] [place] [address] Performed By: #### B HB, 23099-6 #### [facility] CLIA [id number] [address] [place] [address] [place] Urobilinogen Ql (U) Negative Normal Negative [facility] Comment on above: Order Comment: Speci men Type: BLOOD SPECIMEN Ordering Facility: [facility] Address: [address] [place] [address] Performed By: #### B HB, 89120-8 #### [facility] CLIA [id number] [address] [place] [address] [place] WBC LM.HPF (Urine sed) [#/Area] /[HPF] Abnormal 0-5 /HPF [facility] Comment on above: Order Comment: Speci men Type: BLOOD SPECIMEN Ordering Facility: [facility] Address: [address] [place] [address] Performed By: #### B , 71662-1 #### [facility] CLIA [id number] [address] [place] [address] [place] ALLIED HEALTHon 08-31-2023 ALLIED HEALTH HNO ID: [id number] Author: LAKISHA LITTLE RT(R) Service: ? Author [...] CULTURE, BLOOD: No growth 5 days Normal [facility] Comment on above: Performed By: #### 6 00-7 ####[facility] [id number] [address] Bacteria Ur Culton 4 Bacteria identified Cx Nom (U) ORGANISM ID: 1 >=100,000 CFU/ml Mixed microbiota No further workup. Mixed microbiota can be due to???urine???contaminatio n with skin bacteria at time of collection or presence of a long-term urinary catheter. If a new culture is needed, please consider re-education of the patient on proper midstream collection technique or straight catheterization for???urine???collection. [facility] Comment on above: Performed By: #### 6 30-4 #### [facility] CLIA [id number] [address] [facility] [id number] [address] [place] CBC W Auto Differential pane l (Bld)on 08-31-2023 Basophils (Bld) [#/Vol] 0.03 10*3/uL Normal <0.11 [facility] Comment on above: Order Comment: Speci men Type: BLOOD SPECIMEN Ordering Facility: [facility] Address: [address] [place] [address] Performed By: #### B HB, #### [facility] CLIA [id number] [address] [place] [address] [place] Basophils/100 WBC (Bld) 0.3 % Normal [facility] Comment on above: Order Comment: Speci men Type: BLOOD SPECIMEN Ordering Facility: [facility] Address: [address] [place] [address] Performed By: #### B HB, #### [facility] CLIA [id number] [address] [place] [address] [place] Differential cell count method Nom (Bld) Auto Normal [facility] Comment on above: Order Comment: Speci men Type: BLOOD SPECIMEN Ordering Facility: [facility] Address: [address] [place] [address] Performed By: #### B HB, #### [facility] CLIA [id number] [address] [place] [address] [place] Eosinophils (Bld) [#/Vol] 10*3/uL Normal <0.46 [facility] Comment on above: Order Comment: Speci men Type: BLOOD SPECIMEN Ordering Facility: [facility] Address: [address] [place] [address] Performed By: #### B HB, #### [facility] CLIA [id number] [address] [place] [address] [place] Eosinophils/100 WBC (Bld) 0.1 % Normal [facility] Comment on above: Order Comment: Speci men Type: BLOOD SPECIMEN Ordering Facility: [facility] Address: [address] [place] [address] Performed By: #### B HB, #### [facility] CLIA [id number] [address] [place] [address] [place] Erythrocyte distribution width (RBC) [Ratio] 14.5 % Normal 11.5-15.0 [facility] Comment on above: Order Comment: Speci men Type: BLOOD SPECIMEN Ordering Facility: [facility] Address: [address] [place] [address] Performed By: #### B HB, #### [facility] CLIA [id number] [address] [place] [address] [place] Hematocrit (Bld) [Volume fraction] 31.5 % Low 36.0-46.0 [facility] Comment on above: Order Comment: Speci men Type: BLOOD SPECIMEN Ordering Facility: [facility] Address: [address] [place] [address] Performed By: #### B HB, #### [facility] CLIA [id number] [address] [place] [address] [place] Hemoglobin (Bld) [Mass/Vol] 10.0 g/dL Low 11.5-15.5 [facility] Comment on above: Order Comment: Speci men Type: BLOOD SPECIMEN Ordering Facility: [facility] Address: [address] [place] [address] Performed By: #### B HB, #### [facility] CLIA [id number] [address] [place] [address] [place] Immature granulocytes (Bld) [#/Vol] 0.06 10*3/uL Normal <0.10 [facility] Comment on above: Order Comment: Speci men Type: BLOOD SPECIMEN Ordering Facility: [facility] Address: [address] [place] [address] Performed By: #### B HB, #### [facility] CLIA [id number] [address] [place] [address] [place] Immature granulocytes/100 WBC (Bld) 0.7 % Normal [facility] Comment on above: Order Comment: Speci men Type: BLOOD SPECIMEN Ordering Facility: [facility] Address: [address] [place] [address] Performed By: #### B HB, #### [facility] CLIA [id number] [address] [place] [address] [place] Lymphocytes (Bld) [#/Vol] 1.67 10*3/uL Normal 1.00-4.00 [facility] Comment on above: Order Comment: Speci men Type: BLOOD SPECIMEN Ordering Facility: [facility] Address: [address] [place] [address] Performed By: #### B HB, #### [facility] CLIA [id number] [address] [place] [address] Lymphocytes/100 WBC (Bld) 18.8 % Normal [facility] Comment on above: Order Comment: Speci men Type: BLOOD SPECIMEN Ordering Facility: [facility] Address: [address] [place] [address] Performed By: #### B HB, #### [facility] CLIA [id number] [address] [place] [address] [place] MCH (RBC) [Entitic mass] 24.5 pg Low 26.0-34.0 [facility] Comment on above: Order Comment: Speci men Type: BLOOD SPECIMEN Ordering Facility: [facility] Address: [address] [place] [address] Performed By: #### B HB, #### [facility] CLIA [id number] [address] [place] [address] [place] MCHC (RBC) [Mass/Vol] 31.7 g/dL Normal 30.5-36.0 [facility] Comment on above: Order Comment: Speci men Type: BLOOD SPECIMEN Ordering Facility: [facility] Address: [address] [place] [address] Performed By: #### B HB, #### [facility] CLIA [id number] [address] [place] [address] [place] MCV (RBC) [Entitic vol] 77.2 fL Low 80.0-100.0 [facility] Comment on above: Order Comment: Speci men Type: BLOOD SPECIMEN Ordering Facility: [facility] Address: [address] [place] [address] Performed By: #### B HB, #### [facility] CLIA [id number] [address] [place] [address] [place] Monocytes (Bld) [#/Vol] 0.71 10*3/uL Normal <0.87 [facility] Comment on above: Order Comment: Speci men Type: BLOOD SPECIMEN Ordering Facility: [facility] Address: [address] [place] [address] Performed By: #### B HB, #### [facility] CLIA [id number] [address] [place] [address] [place] Monocytes/100 WBC (Bld) 8.0 % Normal [facility] Comment on above: Order Comment: Speci men Type: BLOOD SPECIMEN Ordering Facility: [facility] Address: [address] [place] [address] Performed By: #### B HB, #### [facility] CLIA [id number] [address] [place] [address] [place] Neutrophils (Bld) [#/Vol] 6.39 10*3/uL Normal 1.45-7.50 [facility] Comment on above: Order Comment: Speci men Type: BLOOD SPECIMEN Ordering Facility: [facility] Address: [address] [place] [address] Performed By: #### B HB, #### [facility] CLIA [id number] [address] [place] [address] [place] Neutrophils/100 WBC (Bld) 72.1 % Normal [facility] Comment on above: Order Comment: Speci men Type: BLOOD SPECIMEN Ordering Facility: [facility] Address: [address] [place] [address] Performed By: #### B HB, #### [facility] CLIA [id number] [address] [place] [address] [place] Nucleated RBC (Bld) [#/Vol] 10*3/uL Normal <0.01 [facility] Comment on above: Order Comment: Speci men Type: BLOOD SPECIMEN Ordering Facility: [facility] Address: [address] [place] [address] Performed By: #### B HB, #### [facility] CLIA [id number] [address] [place] [address] [place] Nucleated RBC/100 WBC (Bld) [Ratio] 0.0 /100 WBC Normal [facility] Comment on above: Order Comment: Speci men Type: BLOOD SPECIMEN Ordering Facility: [facility] Address: [address] [place] [address] Performed By: #### B HB, #### [facility] CLIA [id number] [address] [place] [address] [place] Platelet mean volume (Bld) [Entitic vol] 11.3 fL Normal 9.0-12.7 [facility] Comment on above: Order Comment: Speci men Type: BLOOD SPECIMEN Ordering Facility: [facility] Address: [address] [place] [address] Performed By: #### B HB, #### [facility] CLIA [id number] [address] [place] [address] [place] Platelets (Bld) [#/Vol] 316 10*3/uL Normal 150-400 [facility] Comment on above: Order Comment: Speci men Type: BLOOD SPECIMEN Ordering Facility: [facility] Address: [address] [place] [address] Performed By: #### B HB, #### [facility] CLIA [id number] [address] [place] [address] [place] RBC (Bld) [#/Vol] 4.08 10*6/uL Normal 3.90-5.20 [facility] Comment on above: Order Comment: Speci men Type: BLOOD SPECIMEN Ordering Facility: [facility] Address: [address] [place] [address] Performed By: #### B HB, 74080-2 #### [facility] CLIA [id number] [address] [place] [address] [place] WBC (Bld) [#/Vol] 8.87 10*3/uL Normal 3.70-11.00 [facility] Comment on above: Order Comment: Speci men Type: BLOOD SPECIMEN Ordering Facility: [facility] Address: [address] [place] [address] Performed By: #### B HB, 24048-3 #### [facility] CLIA [id number] [address] [place] [address] [place] Comprehensive metabolic 2000 panelon 08-31-2023 Albumin [Mass/Vol] 3.7 g/dL Low 3.9-4.9 [facility] Comment on above: Order Comment: Speci men Type: BLOOD SPECIMEN Ordering Facility: [facility] Address: [address] [place] [address] Performed By: #### B HB, 45724-0 #### [facility] CLIA [id number] [address] [place] [address] [place] ALP [Catalytic activity/Vol] 99 U/L Normal 34-123 [facility] Comment on above: Order Comment: Speci men Type: BLOOD SPECIMEN Ordering Facility: [facility] Address: [address] [place] [address] Performed By: #### B HB, 41883-4 #### [facility] CLIA [id number] [address] [place] [address] [place] ALT [Catalytic activity/Vol] U/L Low 7-38 [facility] Comment on above: Order Comment: Speci men Type: BLOOD SPECIMEN Ordering Facility: [facility] Address: [address] [place] [address] Performed By: #### B HB, 66477-2 #### [facility] CLIA [id number] [address] [place] [address] [place] Anion gap [Moles/Vol] 12 mmol/L Normal 9-18 [facility] Comment on above: Order Comment: Speci men Type: BLOOD SPECIMEN Ordering Facility: [facility] Address: [address] [place] [address] Performed By: #### B HB, 71060-4 #### [facility] CLIA [id number] [address] [place] [address] [place] AST [Catalytic activity/Vol] 7 U/L Low 13-35 [facility] Comment on above: Order Comment: Speci men Type: BLOOD SPECIMEN Ordering Facility: [facility] Address: [address] [place] [address] Performed By: #### B HB, #### [facility] CLIA [id number] [address] [place] [address] [place] Bilirubin [Mass/Vol] 0.3 mg/dL Normal 0.2-1.3 [facility] Comment on above: Order Comment: Speci men Type: BLOOD SPECIMEN Ordering Facility: [facility] Address: [address] [place] [address] Performed By: #### B HB, #### [facility] CLIA [id number] [address] [place] [address] [place] Calcium [Mass/Vol] 8.7 mg/dL Normal 8.5-10.2 [facility] Comment on above: Order Comment: Speci men Type: BLOOD SPECIMEN Ordering Facility: [facility] Address: [address] [place] [address] Performed By: #### B HB, #### [facility] CLIA [id number] [address] [place] [address] [place] Chloride [Moles/Vol] 99 mmol/L Normal 97-105 [facility] Comment on above: Order Comment: Speci men Type: BLOOD SPECIMEN Ordering Facility: [facility] Address: [address] [place] [address] Performed By: #### B HB, 49010-6 #### [facility] CLIA [id number] [address] [place] [address] [place] CO2 [Moles/Vol] 19 mmol/L Low 22-30 [facility] Comment on above: Order Comment: Speci men Type: BLOOD SPECIMEN Ordering Facility: [facility] Address: [address] [place] [address] Performed By: #### B HB, 34882-6 #### [facility] CLIA [id number] [address] [place] [address] [place] Creatinine [Mass/Vol] 2.15 mg/dL High 0.58-0.96 [facility] Comment on above: Order Comment: [place] Type: BLOOD SPECIMEN Ordering Facility: [facility] Address: [address] [place] [address] Performed By: #### B HB, 66876-1 #### [facility] CLIA [id number] [place] [address] [place] Creatinine and Glomerular filtration rate.predicted panel (S/P/Bld) 25 mL/min/1.73m??? Low >=60 [facility] Comment on above: Order Comment: [place] Type: BLOOD SPECIMEN Ordering Facility: [facility] Address: [address] [place] [address] Result Comment: Donna mated Glomerular Filtration Rate [...] actual GFR. Performed By: #### B HB, 43265-1 #### [facility] CLIA [id number] [place] [address] [place] Glucose [Mass/Vol] 428 mg/dL High 74-99 [facility] Comment on above: Order Comment: [place] Type: BLOOD SPECIMEN Ordering Facility: [facility] Address: [address] [place] [address] Result Comment: The [place] [employer] (ADA) provides guidance for cutoff [...] Standards of Medical Care in Diabetes 2016, [place] [employer]. Diabetes Care. 2016.39(Suppl 1). Performed By: #### B HB, 89415-2 #### [facility] CLIA [id number] [address] [place] [address] [place] Potassium [Moles/Vol] 5.2 mmol/L High 3.7-5.1 [facility] Comment on above: Order Comment: [place] Type: BLOOD SPECIMEN Ordering Facility: [facility] Address: [address] [place] [address] Performed By: #### B HB, 89339-2 #### [facility] CLIA [id number] [address] [place] [address] [place] Protein [Mass/Vol] 9.1 g/dL High 6.3-8.0 [facility] Comment on above: Order Comment: Simonai reinier Type: BLOOD SPECIMEN Ordering Facility: [facility] Address: [address] [place] [address] Performed By: #### B HB, 99440-2 #### [facility] CLIA [id number] [address] [place] [address] [place] Sodium [Moles/Vol] 130 mmol/L Low 136-144 [facility] Comment on above: Order Comment: Simonai men Type: BLOOD SPECIMEN Ordering Facility: [facility] Address: [address] [place] [address] Performed By: #### B HB, 44089-0 #### [facility] CLIA [id number] [address] [place] [address] [place] Urea nitrogen [Mass/Vol] 39 mg/dL High 7-21 [facility] Comment on above: Order Comment: Simonai men Type: BLOOD SPECIMEN Ordering Facility[facility] Address: [address] [place] [address] Performed By: #### B HB, 83030-7 #### [facility] [id number] STATES OF [facility] ECG COMPLETEon 08-31-2023 ECG COMPLETE Ventricular Rate : 7 1 BPM Atrial Rate : 71 BPM P-R Interval : 166 ms QRS Duration : 80 ms Q-T Interval : 396 ms QTC Calculation(Bazett) : 431 ms Calculated P Dyke : 82 degrees Calculated R Dyke : 71 degrees Calculated T Dyke : 48 degrees Sinus rhythm Normal ECG NO STEMI. 0752 Confirmed by MD DE LEON MICHAEL ([id number]), senior technical editor THERESA SEAY ([id number]) on 08/31/2023 1:24:15 PM NAME : AISLINN WHEELER PID : [id number] : 1960 Gender : Female Race : ORD : [id number] Procedure Date : Aug 31 2023 07:16:42 Edit Date : Aug 31 2023 13:24:16 Diagnosis: Sinus rhythm Normal ECG NO STEMI. 0752 Confirmed by MD DE LEON MICHAEL ([id number]), senior technical editor THERESA SEAY ([id number]) on 08/31/2023 1:24:15 PM Test Reason : Chest Pain Location : 402 : FVED fved05 Overread By : MD DE LEON MICHAEL Edited By : THERESA SEAY Referred By : , Acquired by : [id number], [facility] ECG COMPLETE Ventricular Rate : 8 8 BPM Atrial Rate : 88 BPM P-R Interval : 153 ms QRS Duration : 78 ms Q-T Interval : 370 ms QTC Calculation(Bazett) : 448 ms Calculated P Dyke : 85 degrees Calculated R Dyke : 69 degrees Calculated T Dyke : 62 degrees Sinus rhythm Normal ECG NO STEMI. 0604 Confirmed by KASIE SANDOVAL MD ([id number]), senior technical editor THERESA SEAY ([id number]) on 08/31/2023 1:02:55 PM NAME : AISLINN WHEELER PID : [id number] : 1960 Gender : Female Race : ORD : [id number] Procedure Date : Aug 31 2023 04:17:52 Edit Date : Aug 31 2023 13:02:57 Diagnosis: Sinus rhythm Normal ECG NO STEMI. 0604 Confirmed by KASIE SANDOVAL MD ([id number]), senior technical editor THERESA SEAY ([id number]) on 08/31/2023 1:02:55 PM Test Reason : Arrhythmia Location : 402 : FVED fved05 Overread By : KASIE SANDOVAL MD Edited By : THERESA SEAY Referred By : , Acquired by : [id number], Normal [facility] ED PROV NOTEon 08-31-2023 ED PROV NOTE HNO ID: [id number] Author: RAYNA RHODES PA-C Service: Emergency Medicine Author Type: Physician Foam Fabricator Type: ED Provider Notes Filed: 08/31/2023 08:06 [...] left foot. Pt states she saw her civil engineering assistant and was directed to come to the [...] rarely occurring (more content not included)... Normal [facility] FLUABV+SARS-CoV-2+RSV Pnl Re sp ADRIEL+probeon 08-31-2023 FLUABV+SARS-CoV-2+RSV Pnl Resp ADRIEL+probe COVID 19 RESULT: Not detected The method used is RT-PCR or an equivalent NAAT method. Reference Range(the expected result in uninfected individuals): Not detected INFLUENZA A PCR: Not detected INFLUENZA B PCR: Not detected RSV PCR: Not detected Normal [facility] Comment on above: Performed By: #### 9 5941-1 ####[facility] [id number] [place] [address] [place] Gas and Carbon monoxide pane l (BldV)on 08-31-2023 BASE DEFICIT, VENOUS -5 mmol/L Low -2-0 [facility] Comment on above: Order Comment: Speci men Type: VENOUS BLOOD SPECIMEN Ordering Facility: [facility] Address: [address] [place] [address] Performed By: #### 2 4344-4 #### [facility] CLIA [id number] [address] [place] [address] [place] Body temperature 100.04 [degF] Normal [facility] Comment on above: Order Comment: Speci men Type: VENOUS BLOOD SPECIMEN Ordering Facility: [facility] Address: [address] [place] [address] Performed By: #### 2 4344-4 #### [facility] CLIA [id number] [address] [place] [address] [place] Calcium.ionized (Bld) [Mass/Vol] 1.08 mmol/L Normal 1.08-1.30 [facility] Comment on above: Order Comment: Speci men Type: VENOUS BLOOD SPECIMEN Ordering Facility: [facility] Address: [address] [place] [address] Performed By: #### 2 4344-4 #### [facility] CLIA [id number] [address] [place] [address] [place] Calcium.ionized adjusted to pH 7.4 (BldA) [Moles/Vol] 1.06 mmol/L Low 1.08-1.30 [facility] Comment on above: Order Comment: Speci men Type: VENOUS BLOOD SPECIMEN Ordering Facility: [facility] Address: [address] [place] [address] Performed By: #### 2 4344-4 #### [facility] CLIA [id number] [address] [place] [address] [place] Carboxyhemoglobin (BldV) [Mass fraction] 3.8 % High 0.0-2.0 [facility] Comment on above: Order Comment: Speci men Type: VENOUS BLOOD SPECIMEN Ordering Facility: [facility] Address: [address] [place] [address] Result Comment: Carb oxyhemoglobin Reference Range for Smokers: 2.0-8.0% Performed By: #### 2 4344-4 #### [facility] CLIA [id number] [address] [place] [address] [place] Chloride [Moles/Vol] 106 mmol/L High 97-105 [facility] Comment on above: Order Comment: Speci men Type: VENOUS BLOOD SPECIMEN Ordering Facility: [facility] Address: [address] [place] [address] Performed By: #### 2 4344-4 #### [facility] CLIA [id number] [address] [place] [address] [place] CO2 (BldV) [Partial pressure] 35 mm[Hg] Low 42-55 [facility] Comment on above: Order Comment: Speci men Type: VENOUS BLOOD SPECIMEN Ordering Facility: [facility] Address: [address] [place] [address] Performed By: #### 2 4344-4 #### [facility] CLIA [id number] [address] [place] [address] [place] CO2 adjusted to patient's actual temperature (BldV) [Partial pressure] Normal [facility] Comment on above: Order Comment: Speci men Type: VENOUS BLOOD SPECIMEN Ordering Facility: [facility] Address: [address] [place] [address] Performed By: #### 2 4344-4 #### [facility] CLIA [id number] [address] [place] [address] [place] Glucose [Mass/Vol] 460 mg/dL High 60-105 [facility] Comment on above: Order Comment: Speci men Type: VENOUS BLOOD SPECIMEN Ordering Facility: [facility] Address: [address] [place] [address] Performed By: #### 2 4344-4 #### [facility] CLIA [id number] [address] [place] [address] [place] HCO3 (Bld) [Moles/Vol] 19 mmol/L Low 24-28 [facility] Comment on above: Order Comment: Speci men Type: VENOUS BLOOD SPECIMEN Ordering Facility: [facility] Address: [address] [place] [address] Performed By: #### 2 4344-4 #### [facility] CLIA [id number] [address] [place] [address] [place] Hematocrit (Bld) [Volume fraction] 29.7 % Low 36.0-46.0 [facility] Comment on above: Order Comment: Speci men Type: VENOUS BLOOD SPECIMEN Ordering Facility: [facility] Address: [address] [place] [address] Performed By: #### 2 4344-4 #### [facility] CLIA [id number] [address] [place] [address] [place] Hemoglobin (Bld) [Mass/Vol] 9.6 g/dL Low 11.5-15.5 [facility] Comment on above: Order Comment: Speci men Type: VENOUS BLOOD SPECIMEN Ordering Facility: [facility] Address: [address] [place] [address] Performed By: #### 2 4344-4 #### [facility] CLIA [id number] [address] [place] [address] [place] Lactate [Moles/Vol] 1.1 mmol/L Normal 0.5-2.2 [facility] Comment on above: Order Comment: Speci men Type: VENOUS BLOOD SPECIMEN Ordering Facility: [facility] Address: [address] [place] [address] Performed By: #### 2 4344-4 #### [facility] CLIA [id number] [address] [place] [address] [place] Methemoglobin (Bld) [Mass fraction] 1.1 % Normal 0.0-1.5 [facility] Comment on above: Order Comment: Speci men Type: VENOUS BLOOD SPECIMEN Ordering Facility: [facility] Address: [address] [place] [address] Performed By: #### 2 4344-4 #### [facility] CLIA [id number] [address] [place] [address] O2 THERAPY RA=Room Air Normal [facility] Comment on above: Order Comment: Speci men Type: VENOUS BLOOD SPECIMEN Ordering Facility: [facility] Address: [address] [place] [address] Performed By: #### 2 4344-4 #### [facility] CLIA [id number] [address] [place] [address] [place] [facility] [place] Oxygen (BldV) [Partial pressure] 118 mm[Hg] High 35-45 [facility] Comment on above: Order Comment: Speci men Type: VENOUS BLOOD SPECIMEN Ordering Facility: [facility] Address: [address] [place] [address] Performed By: #### 2 4344-4 #### [facility] CLIA [id number] [address] [place] [address] [place] Oxygen adjusted to patient's actual temperature (BldV) [Partial pressure] Normal [facility] Comment on above: Order Comment: Speci men Type: VENOUS BLOOD SPECIMEN Ordering Facility: [facility] Address: [address] [place] [address] Performed By: #### 2 4344-4 #### [facility] CLIA [id number] [place] [address] [place] Oxygen saturation in Venous blood 99 % High 60-85 [facility] Comment on above: Order Comment: Speci men Type: VENOUS BLOOD SPECIMEN Ordering Facility: [facility] Address: [address] [place] [address] Performed By: #### 2 4344-4 #### [facility] CLIA [id number] [address] [place] [address] [place] Oxyhemoglobin (BldV) [Mass fraction] 94 % High 60-85 [facility] Comment on above: Order Comment: Speci men Type: VENOUS BLOOD SPECIMEN Ordering Facility: [facility] Address: [address] [place] [address] Performed By: #### 2 4344-4 #### [facility] CLIA [id number] [address] [place] [address] [place] pH (BldV) 7.37 [pH] Normal 7.32-7.42 [facility] Comment on above: Order Comment: Speci men Type: VENOUS BLOOD SPECIMEN Ordering Facility: [facility] Address: [address] [place] [address] Performed By: #### 2 4344-4 #### [facility] CLIA [id number] [address] [place] [address] [place] pH adjusted to patient's actual temperature (BldV) Normal [facility] Comment on above: Order Comment: Speci men Type: VENOUS BLOOD SPECIMEN Ordering Facility: [facility] Address: [address] [place] [address] Performed By: #### 2 4344-4 #### [facility] CLIA [id number] [address] [place] [address] [place] Potassium [Moles/Vol] 5.3 mmol/L High 3.5-5.0 [facility] Comment on above: Order Comment: Speci men Type: VENOUS BLOOD SPECIMEN Ordering Facility: [facility] Address: [address] [id number] Performed By: #### 2 4344-4 #### [facility] CLIA [id number] [address] [place] [address] [place] Sodium [Moles/Vol] 133 mmol/L Low 136-144 [facility] Comment on above: Order Comment: Speci men Type: VENOUS BLOOD SPECIMEN Ordering Facility: [facility] Address: [address] [place] [address] Performed By: #### 2 4344-4 #### [facility] CLIA [id number] [place] HISTORY PHYSICALon HISTORY PHYSICAL HNO ID: [id number] Author: ANTHONY BARROW MD Service: Hospital Medicine [...] left foot ulcer that patient was seen civil engineering assistant as outpatient for and advised her to [...] s 08/31/23 1115 activity - mobilize patient (oh,mo) VTE Prophylaxis: VTE prophylaxis appropriate SIGNATURE: Anthony Barrow MD PATIENT NAME: Aislinn Wheeler DATE: August 31, 2023 TIME: 11:03 AM PAGER/CONTACT #: Normal [facility] KETONES/ACETONE/BHBon 2023 Beta hydroxybutyrate [Moles/Vol] 0.50 mmol/L High <0.28 [facility] Comment on above: Order Comment: [place] Type: BLOOD SPECIMEN Ordering Facility: [facility] Address: [address] [place] [address] Performed By: #### B HB, 08576-3 #### [facility] CLIA [id number] [address] [place] [address] [place] POTASSIUM BLDon 08-31-2023 Potassium [Moles/Vol] 4.6 mmol/L Normal 3.7-5.1 [facility] Comment on above: Order Comment: [place] Type: BLOOD SPECIMEN Ordering Facility: [facility] Address: [address] [place] [address] Performed By: #### B HB, 76041-5 #### [facility] CLIA [id number] [address] [place] [address] [place] SEPSIS LACTATEon 08-31-2023 Lactate [Moles/Vol] 1.2 mmol/L Normal 0.0-2.0 [facility] Comment on above: Order Comment: Speci men Type: BLOOD SPECIMEN Ordering Facility: [facility] Address: [address] [place] [address] Performed By: #### B HB, #### [facility] CLIA [id number] [address] [place] [address] [place] Urinalysis complete panel (U )on 08-31-2023 Bacteria LM.HPF (Urine sed) [#/Area] Many Abnormal None Seen [facility] Comment on above: Order Comment: Speci men Type: BLOOD SPECIMEN Ordering Facility: [facility] Address: [address] [place] [address] Performed By: #### B HB, #### [facility] CLIA [id number] [address] [place] [address] [place] Bilirubin Ql (U) Negative Normal Negative [facility] Comment on above: Order Comment: Speci men Type: BLOOD SPECIMEN Ordering Facility: [facility] Address: [address] [place] [address] Performed By: #### B HB, #### [facility] CLIA [id number] [address] [place] [address] [place] Clarity (Unsp spec) Turbid Abnormal Clear [facility] Comment on above: Order Comment: Speci men Type: BLOOD SPECIMEN Ordering Facility: [facility] Address: [address] [place] [address] Performed By: #### B HB, #### [facility] CLIA [id number] [address] [place] [address] [place] Color (U) Light Yellow Normal Yellow [facility] Comment on above: Order Comment: Speci men Type: BLOOD SPECIMEN Ordering Facility: [facility] Address: [address] [place] [address] Performed By: #### B HB, #### [facility] CLIA [id number] [address] [place] [address] [place] Glucose Test strip (U) [Mass/Vol] 4+ Abnormal Trace, Negative [facility] Comment on above: Order Comment: Speci men Type: BLOOD SPECIMEN Ordering Facility: [facility] Address: [address] [place] [address] Performed By: #### B HB, #### [facility] CLIA [id number] [address] [place] [address] [place] Hemoglobin Ql (U) Trace Normal Negative, Trace [facility] Comment on above: Order Comment: Speci men Type: BLOOD SPECIMEN Ordering Facility: [facility] Address: [address] [place] [address] Performed By: #### B HB, #### [facility] CLIA [id number] [address] [place] [address] STATES [facility] Ketones Ql (U) Negative Normal Negative, Trace [facility] Comment on above: Order Comment: Speci men Type: BLOOD SPECIMEN Ordering Facility: [facility] Address: [address] [place] [address] Performed By: #### B HB, #### [facility] CLIA [id number] [address] [place] [address] [place] Leukocyte esterase Test strip Ql (U) 500 Yuan/uL Abnormal Negative, 25 Yuan/uL [facility] Comment on above: Order Comment: Speci men Type: BLOOD SPECIMEN Ordering Facility: [facility] Address: [address] [place] [address] Performed By: #### B HB, #### [facility] CLIA [id number] [address] [place] [address] [place] Nitrite Ql (U) Negative Normal Negative [facility] Comment on above: Order Comment: Speci men Type: BLOOD SPECIMEN Ordering Facility: [facility] Address: [address] [place] [address] Performed By: #### B HB, #### [facility] CLIA [id number] [address] [place] [address] [place] pH (U) 6.0 [pH] Normal 5.0-8.0 [facility] Comment on above: Order Comment: Speci men Type: BLOOD SPECIMEN Ordering Facility: [facility] Address: [address] [place] [address] Performed By: #### B HB, #### [facility] CLIA [id number] [address] [place] [address] [place] Protein (U) [Mass/Vol] 1+ Abnormal Trace, Negative [facility] Comment on above: Order Comment: Speci men Type: BLOOD SPECIMEN Ordering Facility: [facility] Address: [address] [place] [address] Performed By: #### B HB, #### [facility] CLIA [id number] [address] [place] [address] [place] RBC LM.HPF (Urine sed) [#/Area] 3-5 /HPF Abnormal 0-3 /HPF [facility] Comment on above: Order Comment: Speci men Type: BLOOD SPECIMEN Ordering Facility: [facility] Address: [address] [place] [address] Performed By: #### B HB, #### [facility] CLIA [id number] [address] [place] [address] [place] Specific gravity (U) [Rel density] 1.017 Normal 1.005-1.030 [facility] Comment on above: Order Comment: Speci men Type: BLOOD SPECIMEN Ordering Facility: [facility] Address: [address] [place] [address] Performed By: #### B HB, #### [facility] CLIA [id number] [address] [place] [address] [place] Urobilinogen Ql (U) Negative Normal Negative [facility] Comment on above: Order Comment: Speci men Type: BLOOD SPECIMEN Ordering Facility: [facility] Address: [address] [place] [address] Performed By: #### B HB, 65159-6 #### [facility] CLIA [id number] [address] [place] [address] [place] WBC LM.HPF (Urine sed) [#/Area] /[HPF] Abnormal 0-5 /HPF [facility] Comment on above: Order Comment: Speci men Type: BLOOD SPECIMEN Ordering Facility: [facility] Address: [place] [address] Performed By: #### B , 35270-8 #### [facility] CLIA [id number] [address] [id number] [place] XR CHEST 1V [...] Fatigue and malaise, Fatigue and malaise (accession [id number]), Osteomyelitis (accession [id number]) MQ: XC1_5 Comparison: CT 01/17/2021, radiograph 01/17/2021 [...] performed for increased sensitivity, as clinically warranted. Professor Of Political Science: GUILLE Transcribe Date/Time: Aug 31 2023 4:46A Dictated by : TAURUS MORTON MD This examination was interpreted and the report reviewed and electronically signed by: TAURUS MORTON MD on Aug 31 2023 4:51AM EST [id number] Normal [facility] XR FOOT 3V AP/LAT/OBL LTon 0 [...] Fatigue and malaise, Fatigue and malaise (accession [id number]), Osteomyelitis (accession [id number]) MQ: XC1_5 Comparison: CT 01/17/2021, radiograph 01/17/2021 [...] performed for increased sensitivity, as clinically warranted. Professor Of Political Science: PSCKimberlyn Transcribe Date/Time: Aug 31 2023 4:46A Dictated by : TAURUS MORTON MD This examination was interpreted and the report reviewed and electronically signed by: TAURUS MORTON MD on Aug 31 2023 4:51AM EST [id number] Normal [facility] Operative Reporton Operative Report [id number]#1.00TIFF Normal [facility] Pathology Noteon 08-07-2023 Pathology Note [id number]#1.00TIFF [facility] ED Note-Physicianon 06-29-20 ED Note-Physician [id number]#1.00TIFF [facility] Patient Letter FTMCon 2022 Patient Letter FT (Inserted Image. Grecia ble to display) June 28, 2023 AISLINN WHEELER [address] [place] [id number] : 1960 Dear Aislinn, You missed your [...] any future cancellations. Sincerely, [facility] [address] [place] [address], [place] [address] Pt called and RS'd. Normal [facility] Basic metabolic 2000 panelon 06-23-2023 Anion gap [Moles/Vol] 9 mmol/L Normal 9-18 [facility] Comment on above: Order Comment: Speci men Type: BLOOD SPECIMEN Ordering Facility: [facility] Address: [address] [place] [address] Performed By: #### B HB, 28957-1 #### [facility] CLIA [id number] [address] [place] [address] [place] Calcium [Mass/Vol] 7.3 mg/dL Low 8.5-10.2 [facility] Comment on above: Order Comment: Speci men Type: BLOOD SPECIMEN Ordering Facility: [facility] Address: [address] [place] [address] Performed By: #### B HB, 69081-2 #### [facility] CLIA [id number] [address] [place] [address] [place] Chloride [Moles/Vol] 110 mmol/L High 97-105 [facility] Comment on above: Order Comment: Speci men Type: BLOOD SPECIMEN Ordering Facility: [facility] Address: [address] [place] [address] Performed By: #### B HB, 89100-7 #### [facility] CLIA [id number] [address] [place] [address] [place] CO2 [Moles/Vol] 19 mmol/L Low 22-30 [facility] Comment on above: Order Comment: Speci men Type: BLOOD SPECIMEN Ordering Facility: [facility] Address: [address] [place] [address] Performed By: #### B HB, 53041-6 #### [facility] CLIA [id number] [address] [place] [address] [place] Creatinine [Mass/Vol] 1.39 mg/dL High 0.58-0.96 [facility] Comment on above: Order Comment: Speci men Type: BLOOD SPECIMEN Ordering Facility: [facility] Address: [address] [place] [address] Performed By: #### B HB, 68505-1 #### [facility] CLIA [id number] [address] [place] [address] [place] Creatinine and Glomerular filtration rate.predicted panel (S/P/Bld) 42 mL/min/1.73m??? Low >=60 [facility] Comment on above: Order Comment: Speci men Type: BLOOD SPECIMEN Ordering Facility: [facility] Address: [address] [place] [address] Result Comment: Donna mated Glomerular Filtration Rate [...] actual GFR. Performed By: #### B HB, 48892-7 #### [facility] CLIA [id number] [address] [place] [address] [place] Glucose [Mass/Vol] 157 mg/dL High 74-99 [facility] Comment on above: Order Comment: [place] Type: BLOOD SPECIMEN Ordering Facility: [facility] Address: [address] [place] [address] Result Comment: The [place] [employer] (ADA) provides guidance for cutoff [...] Standards of Medical Care in Diabetes 2016, [place] [employer]. Diabetes Care. 2016.39(Suppl 1). Performed By: #### B HB, 32860-1 #### [facility] CLIA [id number] [address] [place] [address] [place] Potassium [Moles/Vol] 5.1 mmol/L Normal 3.7-5.1 [facility] Comment on above: Order Comment: [place] Type: BLOOD SPECIMEN Ordering Facility[facility] Address: [address] [place] [address] Performed By: #### B HB, 23017-7 #### [facility] CLIA [id number] [place] [address] [place] Sodium [Moles/Vol] 138 mmol/L Normal 136-144 [facility] Comment on above: Order Comment: [place] Type: BLOOD SPECIMEN Ordering Facility[facility] Address: [address] [place] [address] Performed By: #### B HB, 57848-0 #### [facility] CLIA [id number] [address] [place] [address] [place] Urea nitrogen [Mass/Vol] 21 mg/dL Normal 7-21 [facility] Comment on above: Order Comment: Speci men Type: BLOOD SPECIMEN Ordering Facility: [facility] Address: [address] [place] [address] Performed By: #### B HB, #### [facility] CLIA [id number] [address] [place] [address] [place] CBC panel Auto (Bld)on 06-23 Erythrocyte distribution width (RBC) [Ratio] 14.4 % Normal 11.5-15.0 [facility] Comment on above: Order Comment: Speci men Type: BLOOD SPECIMEN Ordering Facility: [facility] Address: [address] [place] [address] Performed By: #### B HB, #### [facility] CLIA [id number] [address] [place] [address] [place] Hematocrit (Bld) [Volume fraction] 28.5 % Low 36.0-46.0 [facility] Comment on above: Order Comment: Speci men Type: BLOOD SPECIMEN Ordering Facility: [facility] Address: [address] [place] [address] Performed By: #### B HB, #### [facility] CLIA [id number] [address] [place] [address] [place] Hemoglobin (Bld) [Mass/Vol] 9.0 g/dL Low 11.5-15.5 [facility] Comment on above: Order Comment: Speci men Type: BLOOD SPECIMEN Ordering Facility: [facility] Address: [address] [place] [address] Performed By: #### B HB, #### [facility] CLIA [id number] [address] [place] [address] [place] MCH (RBC) [Entitic mass] 25.2 pg Low 26.0-34.0 [facility] Comment on above: Order Comment: Speci men Type: BLOOD SPECIMEN Ordering Facility: [facility] Address: [address] [place] [address] Performed By: #### B HB, #### [facility] CLIA [id number] [address] [place] [address] [place] MCHC (RBC) [Mass/Vol] 31.6 g/dL Normal 30.5-36.0 [facility] Comment on above: Order Comment: Speci men Type: BLOOD SPECIMEN Ordering Facility: [facility] Address: [address] [place] [address] Performed By: #### B HB, #### [facility] CLIA [id number] [address] [place] [address] [place] MCV (RBC) [Entitic vol] 79.8 fL Low 80.0-100.0 [facility] Comment on above: Order Comment: Speci men Type: BLOOD SPECIMEN Ordering Facility: [facility] Address: [address] [place] [address] Performed By: #### B HB, #### [facility] CLIA [id number] [address] [place] [address] [place] Nucleated RBC (Bld) [#/Vol] 10*3/uL Normal <0.01 [facility] Comment on above: Order Comment: Speci men Type: BLOOD SPECIMEN Ordering Facility: [facility] Address: [address] [place] [address] Performed By: #### B HB, #### [facility] CLIA [id number] [address] [place] [address] [place] Platelet mean volume (Bld) [Entitic vol] 10.6 fL Normal 9.0-12.7 [facility] Comment on above: Order Comment: Speci men Type: BLOOD SPECIMEN Ordering Facility: [facility] Address: [address] [place] [address] Performed By: #### B HB, #### [facility] CLIA [id number] [address] [place] [address] [place] Platelets (Bld) [#/Vol] 251 10*3/uL Normal 150-400 [facility] Comment on above: Order Comment: Speci men Type: BLOOD SPECIMEN Ordering Facility: [facility] Address: [address] [place] [address] Performed By: #### B HB, 00704-0 #### [facility] CLIA [id number] [address] [place] [address] [place] RBC (Bld) [#/Vol] 3.57 10*6/uL Low 3.90-5.20 [facility] Comment on above: Order Comment: Speci men Type: BLOOD SPECIMEN Ordering Facility: [facility] Address: [address] [place] [address] Performed By: #### B HB, 53153-2 #### [facility] CLIA [id number] [address] [place] [address] [place] WBC (Bld) [#/Vol] 7.47 10*3/uL Normal 3.70-11.00 [facility] Comment on above: Order Comment: Speci men Type: BLOOD SPECIMEN Ordering Facility: [facility] Address: [address] [place] [address] Performed By: #### B HB, 90829-8 #### [facility] CLIA [id number] [place] CNDSon 06-23-2023 CNDS HNO ID: [id number] Author: Annie Martinez APRN.CNP Service: Urology Author [...] patient's care. Taurus Ballard MD ----- [facility] [place] [phone] or [phone] [facility] E N T I A L I N F O R M A T I O N STANDARD [facility] [place] DOCUMENT DISCHARGE SUMMARY Patient Name: Aislinn Wheeler [...] Your Medications These medications were sent to [facility] [address] [place] [address] Hours: Monday-Monday: 7am-7pm, Sat: 9am-1pm acetaminophen 325 mg tablet docusate sodium 100 mg capsule Future Appointments: No future appointments. Electronically SIGNED by Licensed Independent Practitioner: Annie Martinez APRN.[facility] 06-23-2023 [facility] ----- AISLINN WHEELER ([id number]) 1960 F Date Time Provider Department 06/23/23 HEIDY GARCIA During your visit today, we recorded the following information about you: Heidy Garcia RN 06/23/2023 9:05 AM Signed Patient had left robotic partial nephrectomy by Dr. Ballard on 06/22/2023 Will call for surgical follow up once discharged Heidy Garcia RN 06/26/2023 10:45 AM Signed Patient phone number non functioning. Active in [place], will send message inquiring on how she's feeling post-operatively. Vonnie Wilder RN 06/27/2023 10:15 AM Signed Spoke with grand daughter, Lola, as this office is unable to reach patient for post op call. Lola reports, that patient's phone is turned off, and she does not know how to use [employer]. Lola reports that patient went to [place] ED due to excruciating pain -was given [...] Encounter Status:Closed by HEIDY GARCIA on 06/23/23 Normal [facility] NURSING PROGon 06-23-2023 NURSING PROG HNO ID: [id number] Author: Sweta Cordova RN Service: ? Author [...] been taking them. 1500: Spoke with Annie Mixjocy, awaiting PRN order of hydralazine. Normal [facility] ANES POSTPROC EVALon 023 ANES POSTPROC EVAL HNO ID: [id number] Author: Rikki Jhaveri MD Service: Anesthesiology Author [...] June 22, 2023 TIME: 2:18 PM CSN: [id number] [facility] ANES PRE-OPon 06-22-2023 ANES PRE-OP HNO ID: [id number] Author: Rikki Jhaveri MD Service: Anesthesiology Author [...] (HCC) -RENAL (+) ANATOLIY (acute kidney injury) ([facility]) (+) Stage 3a chronic kidney disease (HCC) [...] a current smoker. NPO Status: adequate Beta Ariner Monitoring Plan Monitoring plan: standard ASA and [...] June 22, 2023 TIME: 9:54 AM CSN: [id number] [facility] Basic metabolic 2000 panelon 06-22-2023 Anion gap [Moles/Vol] 7 mmol/L Low 9-18 [facility] Comment on above: Order Comment: Speci men Type: BLOOD SPECIMEN Ordering Facility: [facility] Address: [address] [place] [address] Performed By: #### 2 4321-2 #### [facility] CLIA [id number] [address] [place] [address] [place] Calcium [Mass/Vol] 7.5 mg/dL Low 8.5-10.2 [facility] Comment on above: Order Comment: Speci men Type: BLOOD SPECIMEN Ordering Facility: [facility] Address: [address] [place] [address] Performed By: #### 2 4321-2 #### [facility] CLIA [id number] [address] [place] [address] [place] Chloride [Moles/Vol] 108 mmol/L High 97-105 [facility] Comment on above: Order Comment: Speci men Type: BLOOD SPECIMEN Ordering Facility: [facility] Address: [address] [place] [address] Performed By: #### 2 4321-2 #### [facility] CLIA [id number] [address] [place] [address] [place] CO2 [Moles/Vol] 19 mmol/L Low 22-30 [facility] Comment on above: Order Comment: Speci men Type: BLOOD SPECIMEN Ordering Facility: [facility] Address: [address] [place] [address] Performed By: #### 2 4321-2 #### [facility] CLIA [id number] [address] [place] [address] [place] Creatinine [Mass/Vol] 1.57 mg/dL High 0.58-0.96 [facility] Comment on above: Order Comment: Speci men Type: BLOOD SPECIMEN Ordering Facility: [facility] Address: [address] [place] [address] Performed By: #### 2 4321-2 #### [facility] CLIA [id number] [address] [place] [address] [place] Creatinine and Glomerular filtration rate.predicted panel (S/P/Bld) 36 mL/min/1.73m??? Low >=60 [facility] Comment on above: Order Comment: Speci men Type: BLOOD SPECIMEN Ordering Facility: [facility] Address: [address] [place] [address] Result Comment: Donna mated Glomerular Filtration Rate [...] #### 2 4321-2 #### [facility] CLIA [id number] [place] [address] [place] Glucose [Mass/Vol] 275 mg/dL High 74-99 [facility] Comment on above: Order Comment: [place] Type: BLOOD SPECIMEN Ordering Facility: [facility] Address: [address] [place] [address] Result Comment: The [place] Diabetes Association (ADA) provides guidance for cutoff [...] Standards of Medical Care in Diabetes 2016, [place] [employer] Association. Diabetes Care. 2016.39(Suppl 1). Performed By: #### 2 4321-2 #### [facility] CLIA [id number] [address] [place] [address] [place] Potassium [Moles/Vol] 5.3 mmol/L High 3.7-5.1 [facility] Comment on above: Order Comment: [place] Type: BLOOD SPECIMEN Ordering Facility: [facility] Address: [address] [place] [address] Performed By: #### 2 4321-2 #### [facility] CLIA [id number] [address] [place] [address] [place] Sodium [Moles/Vol] 134 mmol/L Low 136-144 [facility] Comment on above: Order Comment: [place] Type: BLOOD SPECIMEN Ordering Facility: [facility] Address: [address] [place] [address] Performed By: #### 2 4321-2 #### [facility] CLIA [id number] [address] [place] [address] [place] Urea nitrogen [Mass/Vol] 26 mg/dL High 7-21 [facility] Comment on above: Order Comment: Speci men Type: BLOOD SPECIMEN Ordering Facility: [facility] Address: [address] [place] [address] Performed By: #### 2 4321-2 #### [facility] CLIA [id number] [address] [place] [address] [place] CBC panel Auto (Bld)on 06-22 Erythrocyte distribution width (RBC) [Ratio] 14.3 % Normal 11.5-15.0 [facility] Comment on above: Order Comment: Speci men Type: BLOOD SPECIMEN Ordering Facility: [facility] Address: [address] [place] [address] Performed By: #### 5 8410-2 #### [facility] CLIA [id number] [address] [place] [address] [place] Hematocrit (Bld) [Volume fraction] 27.8 % Low 36.0-46.0 [facility] Comment on above: Order Comment: Speci men Type: BLOOD SPECIMEN Ordering Facility: [facility] Address: [address] [place] [address] Performed By: #### 5 8410-2 #### [facility] CLIA [id number] [address] [place] [address] [place] Hemoglobin (Bld) [Mass/Vol] 8.9 g/dL Low 11.5-15.5 [facility] Comment on above: Order Comment: Speci men Type: BLOOD SPECIMEN Ordering Facility: [facility] Address: [address] [place] [address] Performed By: #### 5 8410-2 #### [facility] CLIA [id number] [address] [place] [address] [place] MCH (RBC) [Entitic mass] 25.3 pg Low 26.0-34.0 [facility] Comment on above: Order Comment: Speci men Type: BLOOD SPECIMEN Ordering Facility: [facility] Address: [address] [place] [address] Performed By: #### 5 8410-2 #### [facility] CLIA [id number] [address] [place] [address] STATES [facility] MCHC (RBC) [Mass/Vol] 32.0 g/dL Normal 30.5-36.0 [facility] Comment on above: Order Comment: Speci men Type: BLOOD SPECIMEN Ordering Facility: [facility] Address: [address] [place] [address] Performed By: #### 5 8410-2 #### [facility] CLIA [id number] [address] [place] [address] [place] MCV (RBC) [Entitic vol] 79.0 fL Low 80.0-100.0 [facility] Comment on above: Order Comment: Speci men Type: BLOOD SPECIMEN Ordering Facility: [facility] Address: [address] [place] [address] Performed By: #### 5 8410-2 #### [facility] CLIA [id number] [address] [place] [address] [place] Nucleated RBC (Bld) [#/Vol] 10*3/uL Normal <0.01 [facility] Comment on above: Order Comment: Speci men Type: BLOOD SPECIMEN Ordering Facility: [facility] Address: [address] [place] [address] Performed By: #### 5 8410-2 #### [facility] CLIA [id number] [address] [place] [address] [place] Platelet mean volume (Bld) [Entitic vol] 10.8 fL Normal 9.0-12.7 [facility] Comment on above: Order Comment: Speci men Type: BLOOD SPECIMEN Ordering Facility: [facility] Address: [address] [place] [address] Performed By: #### 5 8410-2 #### [facility] CLIA [id number] [address] [place] [address] [place] Platelets (Bld) [#/Vol] 230 10*3/uL Normal 150-400 [facility] Comment on above: Order Comment: Speci men Type: BLOOD SPECIMEN Ordering Facility: [facility] Address: [address] [place] [address] Performed By: #### 5 8410-2 #### [facility] CLIA [id number] [address] [place] [address] [place] RBC (Bld) [#/Vol] 3.52 10*6/uL Low 3.90-5.20 [facility] Comment on above: Order Comment: Speci men Type: BLOOD SPECIMEN Ordering Facility: [facility] Address: [address] [place] [address] Performed By: #### 5 8410-2 #### [facility] CLIA [id number] [address] [place] [address] [place] WBC (Bld) [#/Vol] 6.04 10*3/uL Normal 3.70-11.00 [facility] Comment on above: Order Comment: Speci men Type: BLOOD SPECIMEN Ordering Facility: [facility] Address: [address] [place] [address] Performed By: #### 5 8410-2 #### [facility] CLIA [id number] [address] [place] [address] [place] NURSING PROGon 06-22-2023 NURSING PROG HNO ID: [id number] Author: Afia Lanier RN Service: Nursing Author Type: Registered Nurse Type: Nursing Progress Note Filed: 06/22/2023 5:56 PM Note Text: Transfer Note: PATIENT NAME: Aislinn Wheeler Patient Location: [place] [address]/-[id number] Room: [address]08 Patient transferred into room/unit pk308 in stable condition. Actions taken: No futher actions taken at this time. Will continue to monitor and check with patient. [facility] NURSING PROG HNO ID: [id number] Author: Linda Nicholson RN Service: Nursing Author Type: Registered Nurse Type: Nursing Progress Note Filed: 06/22/2023 12:20 PM Note Text: pre-incision juan area noted to have redness and inflamed, prior to prepping and putting valerio in. [facility] NURSING PROG HNO ID: [id number] Author: Elva Joy RN Service: Nursing Author [...] OPERATIVE NOon 06-22-2023 OPERATIVE NO HNO ID: [id number] Author: Taurus Ballard MD Service: Urology Author Type: Physician Type: Operative Report Filed: 06/22/2023 1:48 PM Note Text: OPERATIVE/PROCEDURE REPORT LOG ID: [id number] Surgery/Procedure Date: 06/22/2023 Incision/Procedure Start Time: 11:49 AM Incision Close/Procedure End Time: 1:55 PM Surgeon(s)/Proceduralist( s) and Foam Fabricator(s): Surgeon(s) and Role: * Taurus Ballard MD - Primary * Jeet De La Fuente MD - Resident - Assisting Physician Foam Fabricator: Camden Rios PA-C; Alicia Harmon PA-C Procedure(s): [...] superior to the umbilicus a 12 mm veterinary assistant technician port was placed. At this point the [...] a specimen bag out of the supraumbilical veterinary assistant technician port. This port was closed with a [...] None Drains: 10 flat JUAN drain, 16 Sudanese Valerio catheter Complications: None Accidental Punctures/Lacerations: None I/primary surgeon/proceduralist performed the procedure with assistance. SIGNATURE: Taurus Ballard MD PATIENT NAME: Aislinn Wheeler DATE: June 22, 2023 TIME: 1:42 PM PAGER/CONTACT #: [facility] SURGICAL PATHOLOGYon 023 CASE REPORT [facility] Comment on above: Order Comment: Speci men Type: BLOOD SPECIMEN Ordering Facility: [facility] Address: [address] [place] [address] Result Comment: Surg ica Pathology Report Case: [id number] Authorizing Provider: Taurus Ballard MD Collected: 06/22/2023 01:38 PM Ordering Location: [facility] Received: 06/22/2023 03:16 PM Operating Room Pathologist: Barron Cheema MD Specimen: KIDNEY PARTIAL NEPHRECTOMY LEFT, left renal neoplasm Performed By: #### Kimberlyn FISCHER, 36524-7 #### [facility] CLIA [id number] [address] [place] CLINICAL HISTORY Normal [facility] Comment on above: Order Comment: Speci men Type: BLOOD SPECIMEN Ordering Facility: [facility] Address: [address] [place] [address] Result Comment: 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 - 7.2 cm gross greatest dimension of tissue specimen (defer to clinical/imaging for overall lesion size). Performed By: #### [place], [address]-2 #### [facility] CLIA [id number] [address] [place] [address] OF [facility] FINAL PERFORMING LAB Normal [facility] Comment on above: Order Comment: Speci men Type: BLOOD SPECIMEN Ordering Facility: [facility] Address: [address] [place] [address] Result Comment: Diag nostic interpretation performed at [facility], [address] [place] [place] [address] CLIA# [id number] Director Of Workforce Development: Oswald Munguia M.D. Performed By: #### [place], [address]-4 #### [facility] CLIA [id number] [address] [place] [address] GROSS DESCRIPTION Normal [facility] Comment on above: Order Comment: Speci men Type: BLOOD SPECIMEN Ordering Facility: [facility] Address: [address] [place] [address] Result Comment: Emre LINO PARTIAL NEPHRECTOMY LEFT Received in formalin designated left renal neoplasm is a segment of chilel-purple membranous tissue which weighs 39 g and measures 7.2 x 5.5 x 3.5 cm. There is cautery present at the margin which is inked orange. The surfaces are smooth with no masses or papillations grossly appreciated. Sectioning does not reveal any masses. Compound Machine Operator sections are submitted in 5 cassettes. BF June 23, 2023 9:00 AM Gross examination performed at [facility], [address] [place] [address] CLIA # [id number] Performed By: #### B , 33366-8 #### [facility] CLIA [id number] [place] [address] Kamilah 06-15-2023 CNPN Telephone ([facility] ----- AISLINN WHEELER ([id number]) 1960 F Date Time Provider Department 06/15/23 VONNIE WILDER [facility] During your visit today, we recorded [...] [facility] Kamilah 06-12-2023 CNPN Telephone ([facility]) ----- AISLINN WHEELER ([id number]) 1960 F Date Time Provider Department 06/12/23 LILIANA VELASCO [facility] During your visit today, we recorded the following information about you: Liliana Velasco RN 06/12/2023 8:56 AM Signed Received call from RN at Dr. Sara Augustine ([phone]) office (endocrinology) regarding clearance for upcoming surgery [...] Sara sánchez CNP received and scanned into Xunlei to view. Allergies As of Date: 06/12/2023 [...] R1: This test was performed at: [facility], [address] [place] [address], [address]- , , [facility] Comment on above: Performed By: #### 2 [id number] #### [facility] [address] [place] [address] 06-09-2023 [facility] Telephone ([facility]) ----- AISLINN WHEELER ([id number]) 1960 F Date Time Provider Department 06/09/23 TAURUS BALLARDRaquel During your visit today, we recorded the following information about you: Derik Fernandez 06/09/2023 3:31 PM Signed Lvm on patient's phone inquiring if she kept her burnisher and bumper appointment on 06/08 for clearance for her surgery on 06/22 Left message with office of Sara Augustine ([phone]) where patient's appointment was scheduled asking for [...] - FINGER STICKon Glucose [Mass/Vol] 436 mg/dL NoFlo Other Consent for Procedure/Surger yon 05-22-2023 Consent for Procedure/Surgery [id number]#1.00CD: 127 Normal [facility] Consent for Treatmenton Consent for Treatment [id number]#1.00CD:12 7 Normal [facility] Inpatient Patient Summaryon 05-22-2023 Inpatient Patient Summary [address] [address] Clinical Summary Person Information Name: AISLINN WHEELER Age: 63 Years : 1960 Sex: Female PCP: AGUSTO OLMSTEAD CNP Marital Status: Race: White Ethnicity: Non- or Language: Albanian Visit Id: Visit Reason: MIXED URINARY INCONTINENCE Speciality: Acuity: Enc Type: Outpatient Med Service: Surgery Arrival: 05/22/2023 09:41:57 Discharge: Dispo Type: Address: [facility] [id number] Provider Notes: Diagnosis: Feeling of incomplete bladder [...] Follow up: With: Address: When: Lisa Olvera [address] [place] [phone] Business (1) [address] [place], [place] [address], [address] [address] [phone] Business (1) Comments: Office to schedule follow up in 1 month with PVR Patient Education Information: EU - Cystoscopy with Botox Injection Discharge Instructions (CUSTOM) [facility] IntraOperative Documentson 1 IntraOperative Documents [id number]#1.00CD: 127 [facility] Main OR Intraoperative Recor don 05-22-2023 Main OR Intraoperative Record IntraOp Document Type FTURO Summary Primary Physician: Lisa Olvera MD Finalized Date/Time: 05/22/23 11:29:32 Pt. Name: AISLINN WHEELER D.O.B./Sex: 1960 Female Med Rec #: [id number] Physician: Lisa Olvera MD Financial #: [id number] Pt. Type: O Room/Bed: / Admit/Disch: 05/22/23 09:41:57 - Institution: Case Times FTURO Entry 1 Patient Times In Room 05/22/23 11:15:00 Out Room 05/22/23 11:30:00 Procedure Times Start 05/22/23 11:22:00 Stop 05/22/23 11:26:00 Anesthesia Times Last Modified By: Katya LE, Marilee Feldman 05/22/23 11:26:29 General Comments: BOTOX 100 UNITS LOT#: [id number] , EXP DATE: 09/2025 -Jessica BLANCO RN Case Attendance FTURO Entry 1 Entry 2 Entry 3 Case Attendee Vern TAVERAS, Lisa Blanco RN, Marilee Solano CST, Cammie Feldman Role Performed Surgeon - Primary Body Recall Instructor - Primary Scrub - Primary Time In 05/22/23 11:15:00 05/22/23 11:15:00 05/22/23 11:15:00 Time Out 05/22/23 11:30:00 05/22/23 11:30:00 05/22/23 11:30:00 Procedure CYSTOSCOPY LOCAL BOTOX CYSTOSCOPY LOCAL BOTOX CYSTOSCOPY LOCAL BOTOX INJECTION(.) INJECTION(.) INJECTION(.) Comments Last Modified By: Katya LE, Marilee Blanco RN, Marilee Oliver RN 05/22/23 Apryl P 05/22/23 Apryl P 05/22/23 11:26:33 11:26:33 11:26:33 Surgical Procedures FTURO Entry 1 Procedure Description Procedure CYSTOSCOPY LOCAL BOTOX Modifiers . INJECTION Surgeon Description CYSTOSCOPY WITH BOTOX 100 UNITS Primary Procedure Yes Primary Surgeon Lisa Olvera MD Start 05/22/23 11:22:00 Stop 05/22/23 11:26:00 [...] Out Lisa Olvera MD, Verified (If Participants Katya LE, Marilee Applicable) Xiomara Cagle DRILL GRINDER, Cammie Shoemaker Time Out Complete 05/22/23 11:22:00 [...] By: Marilee Blanco RN 05/22/23 11:29 Normal [facility] Main OR Preoperative Recordo n 05-22-2023 Main OR Preoperative Record Holding Area Document Type FTURO Summary Primary Physician: Lisa Olvera MD Finalized Date/Time: 05/22/23 10:32:24 Pt. Name: LIAMAISLINN./Sex: 1960 Female Med Rec #: [id number] Physician: Lisa Olvera MD Financial #: [id number] Pt. Type: O Room/Bed: / Admit/Disch: 05/22/23 [...] By: Cammie Mcpherson RN 05/22/23 10:32 Normal [facility] Operative Reporton 3 Operative Report Patient: BARBARA WHEELER Age: 63 years Sex: Female : 1960 Associated Diagnoses: None Author: Lisa Olvera MD Procedure Operative Information Details: Date/ Time: 05/22/2023 11:29:00. Pre-Op Dx: Feeling of incomplete bladder emptying (VYG32-XK R39.14, Discharge, Medical), Mixed incontinence (XYW06-OX N39.46, Discharge, Medical), Urinary leakage ([id number] R32, Discharge, Medical). Post-Op Dx: Same. Anesthesia [...] to [facility] in the remote past). Normal [facility] Comment on above: Result Comment: Elec tronically Signed By: Lisa Olvera MD.\.br\Date and Time Signed: 05/22/23 11:30 EDT Outpatient Surgery Discharge Instructionon 05-22-2023 Outpatient Surgery Discharge Instruction [place] [id number] Patient Discharge Instructions PERSON INFORMATION Name: AISLINN [...] Follow up: With: Address: When: Lisa Olvera [address] [place] [address] [phone] Business (1) [address] [facility], [address] [address] [phone] Business (1) Comments: Office to schedule follow [...] to serve you. Thank you for choosing [facility] Normal [facility] Consultation Noteon 05-19-20 Consultation Note [id number]#1.00CD:12 7 Normal [facility] A1C HEMOGLOBINon 05-18-2023 HbA1c (Bld) [Mass fraction] 14.0 % NoFlo Other [facility] 05-18-2023 [facility] Telephone (URR) ----- AISLINN WHEELER ([id number]) 1960 F Date Time Provider Department 05/18/23 TAURUS BALLARD During your visit today, we recorded the following information about you: Agusto Faulkner 05/18/2023 1:01 PM Signed Consult notes sent back to Dr. Lisa Olvera , phone [phone]. From Dr. Ballard office. Allergies As of [...] - FINGER STICKon Glucose [Mass/Vol] 429 mg/dL NoFlo Other HbA1c (Bld) [Mass fraction]o n 05-18-2023 A1C HEMOGLOBIN [employer] Other [facility]OVon 05-17-2023 CNOV Office Visit ([facility]) ----- AISLINN WHEELER ([id number]) 1960 F Date Time Provider Department 05/17/23 1:10 PM TAURUS BALLARD [facility] During your visit today, we recorded the following information about you: Temperature Pulse Blood pressure Weight 97.5 degrees 70/minute 172/81 60.1 kg Tauurs Ballard MD 05/17/2023 1:35 PM Signed [facility] FOLLOW-UP PATIENT HISTORY AND [...] 1.92 01/19/[address] scan (outside records) [employer] 09/28/21 IMPRESSION: Since the prior CT scan [...] other structures) (more content not included)... Normal [facility] C Urineon 05-13-2023 Bacteria identified Cx [...] R1: This test was performed at: [facility], [address] [place] [address], [address]- , , [facility] Comment on above: Performed By: #### 2 [id number] #### [facility] [address] [place] [address] Physician Referralon 023 Physician Referral [id number]#1.00CD:127 PATIENT IS SCHEDULED 05/17/2023 [facility] Consultation Noteon 05-04-20 23 Consultation Note [id number]#1.00CD:127 [facility] [facility] Insurance Correspondenceon 0 05-04-2023 Insurance Correspondence [id number]#[id number]:1 27 [facility] Urology Office/Clinic Noteon 05-04-2023 Urology Office/Clinic Note [...] mass on Kidney was not cancerous. However heavy equipment plumbing supervisor told her she has kidney cancer. Denies [...] PSH lap cholecystectomy, open hysterectomy -Continues with heavy equipment plumbing supervisor for CKD3 1. Renal cyst (N28.1: Cyst [...] tertiary center, Dr. Ballard at [facility] for evaluation of robotic left cyst decortication -Pt states heavy equipment plumbing supervisor told her she has cancer. 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 Ordered: [id number] Measure Post Void residual urine and/or bladder capacity by US- non-imaging Urnls Dip Stick Auto w/o Microscopy POC 81576 2. Mixed incontinence (N39.46: Mixed incontinence) Pt [...] of Botox. (more content not included)... Normal [facility] Comment on above: Result Comment: Elec tronically Signed By: Vern TAVERAS, Lisa Montiel\.br\Date and Time Signed: 05/04/23 14:11 EDT Ambulatory Visit Summaryon 0 05-03-2023 Ambulatory Visit Summary LIAM AISLINN M :1960 Visit Date:05/03/2023 Ambulatory Visit Instructions Your Diagnosis Renal mass Renal cyst Mixed incontinence Feeling of incomplete bladder emptying Glucosuria Tests Performed Urnls Dip Stick Auto w/o Microscopy POC 44378 Your Care Team Attending Physician - Lisa [...] one day prior to procedure Pickup at [facility] New estradiol topical (Estrace 0.1 mg/ g Cream) See instructions Refills: 3 apply pea size amount to urethra/ inner vagina 3x/ week x 1 month, then 2x/ week for maintainence Pickup at [facility] Unchanged trospium (trospium 20 mg oral [...] physician if questions or concerns Pharmacy Information [facility]: [address] [id number] [phone] Test Results Urnls Dip Stick Auto w/o Microscopy POC 35808 (05/03/2023) Bilirubin Urine Dipstick - Negative Blood Urine Dipstick - Trace-intact Glucose Urine Dipstick - 3+ 1000 mg/dl Ketones Urine Dipstick - Negative Leukocytes Urine Dipstick - Negative Nitrite Urine Dipstick - Negative Protein Urine Dipstick - Trace Specific [place] Urine Dipstick - 1.015 Urine Appearance Urine [...] are saf (more content not included)... Normal [facility] Patient Educationon 05-03-20 Patient Education [...] provider. Document Revised: 12/16/2021 Document Reviewed: 12/16/2021 [email or web address] Patient Education ? 2022 [employer] Normal [facility] Screenson 05-03-2023 Screens [id number]#1.00CD:1 27 Normal [facility] C Urineon 04-20-2023 Bacteria identified Cx Nom (U) Microbiology PROCEDURE: Urine Culture [R1] SOURCE: U CleanCatch BODY SITE: COLLECTED DATE/TIME: 04/18/2023 11:52 EDT RECEIVED DATE/TIME: 04/18/2023 19:20 EDT START DATE/TIME: 04/18/2023 19:20 EDT FREE TEXT SOURCE: CATALINA VIRGEN, HEIDY CINTRON PA-C FINAL REPORTS Final Report [] Verified Date/Time: [...] Locations R1: This [facility] performed at[facility], [address] [place] [address], [address] , , [facility] Comment on above: Performed By: #### 2 [id number] ####[facility] [address] [place] [address] Ambulatory Visit Summaryon 0 04-18-2023 Ambulatory Visit [...] With: Lisa Olvera MD Where: [facility] Screenson 02-23-2023 Screens [id number]#1.00CD:1 27 [facility] Ambulatory Visit Summaryon 0 02-22-2023 Ambulatory Visit Summary AISLINN WHEELER :1960 Visit Date:02/22/2023 Ambulatory Visit Instructions Your Diagnosis Renal mass Renal cyst Mixed incontinence Feeling of incomplete bladder emptying Glucosuria Tests Performed Urnls Dip Stick Auto w/o Microscopy POC 57252 Your Care Team Attending Physician - Lisa [...] TAVERAS, Lisa Montiel Where: [facility] Patient Educationon 02-23-20 Patient Education Obstetrics and [...] provider. Document Revised: 12/16/2021 Document Reviewed: 12/16/2021 [employer] Patient Education ? 2022 [employer]. [facility] Urology Office/Clinic Noteon 02-22-2023 Urology Office/Clinic Note [...] PSH lap cholecystectomy, open hysterectomy -Continues with heavy equipment plumbing supervisor after referred last visit 1. Renal mass [...] and the (more content not included)... Normal [facility] Comment on above: Result Comment: Elec tronically Signed By: Lisa Olvera MD\.br\Date and Time Signed: 02/22/23 10:14 EDT\.br\Electronically Co-Signed By: Marilee Gray.br\Date and Time Co-Signed: 02/22/23 09:36 EDT Lab Reportson 02-20-2023 Lab Reports [id number]:12 7 Normal [facility] RAD - CT Reporton 02-20-2023 RAD - CT Report [id number]#1.00CD:127 Normal [facility] Physician Orderon 02-01-2023 Physician Order [id number]#1.00CD:127 Normal [facility] Consultation Noteon 01-08-20 Consultation Note [id number]#1.00CD:12 7 Normal [facility] XR FOOT LT MIN 3 VIEWSon XR FOOT LT MIN 3 VIEWS Normal [facility] MG MAMM SCREEN 3D GURJIT CADon 12-28-2022 MG MAMM SCREEN 3D GURJIT CAD Normal [facility] XR DEXA BONE DENSITYon 12-28 XR DEXA BONE DENSITY Normal [facility] NM STRESS/REST MULTIon 12-15 NM STRESS/REST MULTI Normal [facility] XR FOOT LT MIN 3 VIEWSon XR FOOT LT MIN 3 VIEWS Normal [facility] Physician Referralon 023 Physician Referral [id number]#1.00CD:12 7 Normal [facility] CT FOOT LT WO CONon 10-28-19 CT FOOT LT WO CON Normal [facility] XR FOOT LT MIN 3 VIEWSon XR FOOT LT MIN 3 VIEWS Normal [facility] XR FOOT LT MIN 3 VIEWSon XR FOOT LT MIN 3 VIEWS Normal [facility] XR FOOT LT MIN 3 VIEWSon XR FOOT LT MIN 3 VIEWS Normal [facility] XR FOOT LT MIN 3 VIEWSon XR FOOT LT MIN 3 VIEWS Normal [facility] XR FOOT LT MIN 3 VIEWSon XR FOOT LT MIN 3 VIEWS Normal [facility] US KIDNEYSon 09-15-2022 US KIDNEYS Normal [facility] XR FOOT LT MIN 3 VIEWSon XR FOOT LT MIN 3 VIEWS Normal [facility] XR FOOT LT MIN 3 VIEWSon XR FOOT LT MIN 3 VIEWS Normal [facility] XR FOOT LT MIN 3 VIEWSon XR FOOT LT MIN 3 VIEWS Normal [facility] CBC AUTO DIFFon 08-03-2022 BASO # 0.0 103/ul Normal 0.0-0.1 [facility] Comment on above: Performed By: #### C BC ####[facility] [address] [place] [address]Dr. Ricardo Rocha Basophils/100 WBC (Bld) 0.5 % Normal 0.2-2.0 [facility] Comment on above: Performed By: #### C BC ####[facility] [address] [place] [address]Dr. Ricardo Rocha EO # 0.1 103/ul Normal 0.0-0.7 [facility] Comment on above: Performed By: #### C BC ####[facility] [address] [place] [address]Dr. Ricardo Rocha Eosinophils/100 WBC (Bld) 1.2 % Normal 0.9-7.0 [facility] Comment on above: Performed By: #### C BC ####[facility] [address] [place] [address]Dr. Ricardo Rocha Erythrocyte distribution width (RBC) [Ratio] 15.0 % Normal 11.0-15.0 [facility] Comment on above: Performed By: #### C BC ####[facility] [address] [place] [id number] Rocha Hematocrit (Bld) [Volume fraction] 29.5 % Critically low 36.0-48.0 [facility] Comment on above: Performed By: #### C BC ####[facility] [address] [place] [address]Dr. Ricardo Rocha Hemoglobin (Bld) [Mass/Vol] 9.3 g/dL Critically low 12.0-16.0 [facility] Comment on above: Performed By: #### C BC ####[facility] [address] [place] [address]Dr. Ricardo Rocha IG # 0.04 10e3/ul Critically high 0.00-0.03 [facility] Comment on above: Performed By: #### C BC ####[facility] [address] [place] [address]Dr. Ricardo Rocha IG % 0.5 % Normal 0.0-0.5 [facility] Comment on above: Performed By: #### C BC ####[facility] [address] [place] [address]DrIrina Rocha LYMPH # 1.4 103/ul Normal 1.2-3.8 [facility] Comment on above: Performed By: #### C BC ####[facility] [address] [place] [address]Dr. Ricardo Rocha Lymphocytes/100 WBC (Bld) 17.2 % Critically low 20.5-60.0 [facility] Comment on above: Performed By: #### C BC ####[facility] [address] [place] [address]DrIrina Rocha MANUAL DIFF REQ NO Normal [facility] Comment on above: Performed By: #### C BC ####[facility] [address] [place] [address]Dr. Ricardo Rocha MCH (RBC) [Entitic mass] 25.2 pg Critically low 26.7-34.0 [facility] Comment on above: Performed By: #### C BC ####[facility] [address] [place] [address]Dr. Ricardo Rocha MCHC (RBC) [Mass/Vol] 31.5 g/dL Normal 29.9-35.2 [facility] Comment on above: Performed By: #### C BC ####[facility] [address] [place] [address]Dr. Ricardo Rocha MCV (RBC) [Entitic vol] 79.9 fL Critically low 81.0-99.0 [facility] Comment on above: Performed By: #### C BC ####[facility] [address] [place] [id number]. Ricardo Rocha MONO # 0.6 103/ul Normal 0.3-0.8 [facility] Comment on above: Performed By: #### C BC ####[facility] [address] [place] [id number]. Ricardo Rocha Monocytes/100 WBC (Bld) 7.6 % Normal 1.7-12.0 [facility] Comment on above: Performed By: #### C BC ####[facility] [address] [place] [address]Dr. Ricardo Rocha NEUT # 5.9 103/ul Normal 1.4-6.5 [facility] Comment on above: Performed By: #### C BC ####[facility] [address] [place] [address]Dr. Ricardo Rocha Neutrophils/100 WBC (Bld) 73.0 % Normal 43.0-75.0 [facility] Comment on above: Performed By: #### C BC ####[facility] [address] [place] [address]Dr. Ricardo Rocha Platelet mean volume (Bld) [Entitic vol] 11.4 fL Normal 9.5-13.5 [facility] Comment on above: Performed By: #### C BC ####[facility] [address] [place] [id number]. Ricardo Rocha PLT 253 103/ul Normal 150-450 [facility] Comment on above: Performed By: #### C BC ####[facility] [address] [place] [id number]. Ricardo Rocha RBC 3.69 106/ul Critically low 4.20-5.40 [facility] Comment on above: Performed By: #### C BC ####[facility] [address] [place] [id number]. Ricardo Rocha WBC 8.0 103/ul Normal 4.0-11.0 [facility] Comment on above: Performed By: #### C BC ####[facility] [address] [place] [address]Dr. Ricardo Rocha CRPon 08-03-2022 CRP 3.1 mg/dL Critically high <=1.0 [facility] Comment on above: Performed By: #### C RP, BMP, URIC ####[facility] [address] [place], [place] [address]Dr. Ricardo Rocha CULTURE BLOODon 08-03-2022 Microscopic examination of blood, culture Culture Observations: NO GROWTH AT 5 DAYS. Normal [facility] Comment on above: Performed By: #### B LDCX2 ####[facility] [address] [place], [place] [address]Dr. Nanomarcial Aj Microscopic examination of blood, culture Culture Observations: NO GROWTH AT 5 DAYS. Normal [facility] Comment on above: Performed By: #### B LDCX1 ####[facility] [address] [place], [place] [address]Dr. Ricardo Rocha ER URINE PROFILEon 2 Bilirubin Ql (U) Negative Normal NEGATIVE [facility] Comment on above: Performed By: #### E RUR ####[facility] [address] [place], [place] [address]Dr. Ricardo Rocha Clarity (U) CLEAR Normal CLEAR [facility] Comment on above: Performed By: #### E RUR ####[facility] [address] [place], [place] [address]Dr. Ricardo Rocha Color (U) LT. YELLOW Normal YELLOW [facility] Comment on above: Performed By: #### E RUR ####[facility] [address] [place], [place] [address]Dr. Ricardo Rocha ERUAHD A micrscopic examina tion will be performed if indicated. Normal [facility] Comment on above: Performed By: #### E RUR ####[facility] [address] [place], [place] [address]Dr. Ricardo Rocha Glucose Ql (U) 100 mg/dl Abnormal NEGATIVE [facility] Comment on above: Performed By: #### E RUR ####[facility] [address] [place] [address]Dr. Ricardo Rocha Hemoglobin Ql (U) Negative Normal NEGATIVE [facility] Comment on above: Performed By: #### E RUR ####[facility] [address] [place], [place] [address]Dr. Ricardo Rocha Ketones Ql (U) Negative Normal NEGATIVE [facility] Comment on above: Performed By: #### E RUR ####[facility] [address] [place], [place] [address]Dr. Ricardo Rocha LEUKOCYTES Negative Normal NEGATIVE [facility] Comment on above: Performed By: #### E RUR ####[facility] Abr[address] [place], [place] [address]Dr. Ricardo Rocha Nitrite Ql (U) Negative Normal NEGATIVE [facility] Comment on above: Performed By: #### E RUR ####[facility] [address] [place], [place] [address]Dr. Ricardo Rocha pH (U) 6.0 [pH] Normal 5-9 [facility] Comment on above: Performed By: #### E RUR ####[facility] [address] [place], [place] [address]Dr. Ricardo Rocha SPEC GRAVITY 1.010 Normal 1.005-<=1.0 25 [facility] Comment on above: Performed By: #### E RUR ####[facility] [address] [place], [place] [address]Dr. Nanomarcial Aj UA PROTEIN Negative Normal NEGATIVE/ TRACE [facility] Comment on above: Performed By: #### E RUR ####[facility] [address] [place], [place] [address]Dr. Ricardo Rocha UR MICRO IND NOT INDICATED Normal [facility] Comment on above: Performed By: #### E RUR ####[facility] [address] [place], [place] [address]Dr. Ricardo Rocha Urobilinogen Qn (U) 0.2 {Madeleine'U}/dL Normal 0.2 - 1. 0 [facility] Comment on above: Performed By: #### E RUR ####[facility] [address] [place] [address]Dr. Ricardo Rocha LACTATE/LACTIC ACIDon 2021 Lactate [Moles/Vol] 0.5 mmol/L Normal 0.4-1.9 [facility] Comment on above: Performed By: #### L ACT ####[facility] [address] [place] [address]Dr. Ricardo Rocha PROF CHEM 8 (BAS METB)on Anion gap [Moles/Vol] 12.9 mmol/L Normal [facility] Comment on above: Performed By: #### C RP, BMP, URIC ####[facility] [address] [place] [address]Dr. Ricardo Rocha Calcium [Mass/Vol] 9.0 mg/dL Normal 8.5-10.[address] [facility] Comment on above: Performed By: #### C RP, BMP, URIC ####[facility] [address] [place] [address]Dr. Ricardo Rocha Chloride [Moles/Vol] 102 mmol/L Normal 98-107 [facility] Comment on above: Performed By: #### C RP, BMP, URIC ####[facility] [address] [place] [address]Dr. Ricardo Rocha CO2 [Moles/Vol] 23.9 mmol/L Normal 21.0-32.0 [facility] Comment on above: Performed By: #### C RP, BMP, URIC ####[facility] [address] [place] [address]Dr. Ricardo Rocha Creatinine [Mass/Vol] 1.36 mg/dL Critically high 0.55-1.02 [facility] Comment on above: Performed By: #### C RP, BMP, URIC ####[facility] [address] [place] [address]Dr. Ricardo Rocha EGFR-AF BELIZEAN 47 mL/min/1.73m2 Critically low >=60 [facility] Comment on above: Performed By: #### C RP, BMP, URIC ####[facility] [address] [place] [id number]. Ricardo Rocha EGFR-NON AF BELIZEAN 39 mL/min/1.73m2 Critically low >=60 [facility] Comment on above: Performed By: #### C RP, BMP, URIC ####[facility] [address]ffcm[address] [place] [address]Dr. Ricardo Rocha Glucose [Mass/Vol] 125 mg/dL Critically high 74-106 T [facility] Comment on above: Performed By: #### C RP, BMP, URIC ####[facility] [address] [place] [address]Dr. Ricardo Rocha Potassium [Moles/Vol] 4.8 mmol/L Normal 3.5-5.1 [facility] Comment on above: Performed By: #### C RP, BMP, URIC ####[facility] [address]hr[address] [place] [address]Dr. Ricardo Rocha Sodium [Moles/Vol] 134 mmol/L Critically low 136-145 Th [facility] Comment on above: Performed By: #### C RP, BMP, URIC ####[facility] [address] [place] [address]Dr. Ricardo Rocha Urea nitrogen [Mass/Vol] 22.0 mg/dL Critically high 7.0-18.0 [facility] Comment on above: Performed By: #### C RP, BMP, URIC ####[facility] [address] [place] [address]Dr. Ricardo Rocha Urea nitrogen/Creatinine [Mass ratio] 16.2 mg/mg Normal [facility] Comment on above: Performed By: #### C RP, BMP, URIC ####[facility] [address]ler[address] [place] [address]Dr. Ricardo Rocha SED RATE WESTERGRENon 2021 SED RATE 95 mm/hr Critically high <=30 [facility] Comment on above: Performed By: #### S EDR ####[facility] [address]jpo[address] [place] [address]Dr. Ricardo Rocha URIC ACID SERUMon 08-03-2022 Urate [Mass/Vol] 4.7 mg/dL Normal 2.6-6.0 [facility] Comment on above: Performed By: #### C RP, BMP, URIC ####[facility] [address] [place] [address]Dr. Ricardo Rocha XR FOOT LT MIN 3 VIEWSon XR FOOT LT MIN 3 VIEWS Normal [facility] PROF CHEM 8 (BAS METB)on Anion gap [Moles/Vol] 13.8 mmol/L Normal [facility] Comment on above: Performed By: #### B MP ####[facility] S[address]lsxu41[address] [place] [address]Dr. Ricardo Rocha Calcium [Mass/Vol] 8.9 mg/dL Normal 8.5-10.[address] [facility] Comment on above: Performed By: #### B MP ####[facility] [address] [place], [place] [address]Dr. Ricardo Rocha Chloride [Moles/Vol] 101 mmol/L Normal 98-107 [facility] Comment on above: Performed By: #### B MP ####[facility] [address] [place], [place] [address]Dr. Ricardo Rocha CO2 [Moles/Vol] 22.8 mmol/L Normal 21.0-32.0 [facility] Comment on above: Performed By: #### B MP ####[facility] [address] [place], [place] [address]Dr. Ricardo Rocha Creatinine [Mass/Vol] 1.43 mg/dL Critically high 0.55-1.02 [facility] Comment on above: Performed By: #### B MP ####[facility] [address]zy[address] [place] [address]Dr. Ricardo Rocha EGFR-AF BELIZEAN 45 mL/min/1.73m2 Critically low >=60 [facility] Comment on above: Performed By: #### B MP ####[facility] [address] [place], [place] [address]Dr. Ricardo Rocha EGFR-NON AF BELIZEAN 37 mL/min/1.73m2 Critically low >=60 [facility] Comment on above: Performed By: #### B MP ####[facility] [address] [place] [id number]. Nanomarcial Aj Glucose [Mass/Vol] 279 mg/dL Critically high 74-106 T [facility] Comment on above: Performed By: #### B MP ####[facility] [address]nuq[address] [place] [phone]. Ricardo Rocha Potassium [Moles/Vol] 4.6 mmol/L Normal 3.5-5.1 [facility] Comment on above: Performed By: #### B MP ####[facility] [address]feq[address] [place] [address]Dr. Ricardo Rocha Sodium [Moles/Vol] 133 mmol/L Critically low 136-145 Th [facility] Comment on above: Performed By: #### B MP ####[facility] Xmcf[address]zdywj1482 [place] [address]Dr. Ricardo Rocha Urea nitrogen [Mass/Vol] 24.0 mg/dL Critically high 7.0-18.0 [facility] Comment on above: Performed By: #### B MP ####[facility] [address] [place], [place] [address]Dr. Ricardo Rocha Urea nitrogen/Creatinine [Mass ratio] 16.8 mg/mg Normal [facility] Comment on above: Performed By: #### B MP ####[facility] [address]ocpm[address]beu[address] [place] [id number]. Ricardo Rocha ACID FAST SMEAR AND CXon Acid Fast Culture Negative Normal [facility] Comment on above: Result Comment: No a amilcar fast bacilli isolated after 6 weeks. Performed By: #### A FB ####[facility] [address] [place], [place] [phone]. Ricardo Rocha Acid Fast Smear Negative Normal [facility] Comment on above: Performed By: #### A FB ####[facility] [address] [place], [place] [address]Dr. Ricardo Rocha [employer] Specimen Processing Direct Inoculation Normal [facility] Comment on above: Performed By: #### A FB ####[facility] Sm[address]uqony[address] [place] [phone]. Ricardo Rocha [employer] Specimen Processing Tissue Grinding Normal [facility] Comment on above: Performed By: #### A FB ####[facility] Beiqdxrilp[address] [place] [id number]. Ricardo Rocha FUNGAL CULTUREon 07-11-2022 Fungus (Mycology) Culture Final report [facility] Comment on above: Performed By: #### C XFUN ####[facility] [address]xtwopxp1864 [place] [address]Dr. Ricardo Rocha Fungus Stain Final report [facility] Comment on above: Performed By: #### C XFUN ####[facility] [address]um[address] [place], [place] [address]Dr. Ricardo Rocha Result 1 Comment Normal [facility] Comment on above: Result Comment: AAYUSH/ Calcofluor preparation: no fungus observed. Performed By: #### C XFUN ####[facility] [address] [place], [place] [address]Dr. Ricardo Rocha Result Comment: No y east or mold isolated after 4 weeks. PROF CHEM 8 (BAS METB)on Anion gap [Moles/Vol] 15.1 mmol/L Normal [facility] Comment on above: Performed By: #### B MP ####[facility] [address]ne[address] [place], [place] [address]Dr. Ricardo Rocha Calcium [Mass/Vol] 9.0 mg/dL Normal 8.5-10.[address] [facility] Comment on above: Performed By: #### B MP ####[facility] [address]de[address] [place], [place] [address]Dr. Ricardo Rocha Chloride [Moles/Vol] 101 mmol/L Normal 98-107 [facility] Comment on above: Performed By: #### B MP ####[facility] Gjcqpjfosx[address] [place], [place] [address]Dr. Ricardo Rocha CO2 [Moles/Vol] 18.5 mmol/L Critically low 21.0-32.0 [facility] Comment on above: Performed By: #### B MP ####[facility] Bsboygielg[address] [place] [phone]. Nanomarcial Aj Creatinine [Mass/Vol] 2.05 mg/dL Critically high 0.55-1.02 [facility] Comment on above: Performed By: #### B MP ####[facility] Guxskhtswy1178 [place] [phone]. Ricardo Rocha EGFR-AF BELIZEAN 30 mL/min/1.73m2 Critically low >=60 [facility] Comment on above: Performed By: #### B MP ####[facility] Xlhkfniqdx[address] [place], [place] [address]Dr. Ricardo Rocha EGFR-NON AF BELIZEAN 24 mL/min/1.73m2 Critically low >=60 [facility] Comment on above: Performed By: #### B MP ####[facility] Hrqzepiaxb[address] [place], [place] [address]Dr. Ricardo Rocha Glucose [Mass/Vol] 134 mg/dL Critically high 74-106 T [facility] Comment on above: Performed By: #### B MP ####[facility] Azhziubktw6[address] [place], [place] [address]Dr. Ricardo Rocha Potassium [Moles/Vol] 5.6 mmol/L Critically high 3.5-5.1 [facility] Comment on above: Performed By: #### B MP ####[facility] Gpdhsxslxy69[address] [place], [place] [address]Dr. Ricardo Rocha Sodium [Moles/Vol] 129 mmol/L Critically low 136-145 Th [facility] Comment on above: Performed By: #### B MP ####[facility] Zrcnjzgasl[address] [place], [place] [phone]. Ricardo Rocha Urea nitrogen [Mass/Vol] 57.0 mg/dL Critically high 7.0-18.0 [facility] Comment on above: Performed By: #### B MP ####[facility] Lytpxdkjul7[address] [place], [place] [phone]. Ricardo Rocha Urea nitrogen/Creatinine [Mass ratio] 27.8 mg/mg Normal [facility] Comment on above: Performed By: #### B MP ####[facility] Ibxonekrkp88[address] [place] [address]Dr. Ricardo Aj CBC AUTO DIFFon 07-06-2022 BASO # 0.0 103/ul Normal 0.0-0.1 [facility] Comment on above: Performed By: #### C BC ####[facility] Ffhedeabps86[address] [place] [address]Dr. Ricardo Rocha Basophils/100 WBC (Bld) 0.6 % Normal 0.2-2.0 [facility] Comment on above: Performed By: #### C BC ####[facility] Nfuctlltku[address] [place], [place] [address]Dr. Ricardo Rocha EO # 0.1 103/ul Normal 0.0-0.7 [facility] Comment on above: Performed By: #### C BC ####[facility] Kvrcasddlv07[address] [place], [place] [address]Dr. Ricardo Rocha Eosinophils/100 WBC (Bld) 1.7 % Normal 0.9-7.0 [facility] Comment on above: Performed By: #### C BC ####[facility] Qtapzlnkuz359[address] [place], [place] [address]Dr. Ricardo Aj Erythrocyte distribution width (RBC) [Ratio] 15.2 % Critically high 11.0-15.0 [facility] Comment on above: Performed By: #### C BC ####[facility] Gugrdzpvyr[address] [place], [place] [address]Dr. Ricardo Rocha Hematocrit (Bld) [Volume fraction] 34.6 % Critically low 36.0-48.0 [facility] Comment on above: Performed By: #### C BC ####[facility] Ybfeuonnkh[address] [place], [place] [address]Dr. Ricardo Rocha Hemoglobin (Bld) [Mass/Vol] 10.5 g/dL Critically low 12.0-16.0 [facility] Comment on above: Performed By: #### C BC ####[facility] Rlgabuqapa[address] [place], [place] [address]DrIrina Rocha IG # 0.01 10e3/ul Normal 0.00-0.03 [facility] Comment on above: Performed By: #### C BC ####[facility] Oikfcpahyy10[address] [place] [address]DrIrina Rocha IG % 0.2 % Normal 0.0-0.5 [facility] Comment on above: Performed By: #### C BC ####[facility] Ibmicnedns9981 [place] [address]DrIrina Rocha LYMPH # 2.4 103/ul Normal 1.2-3.8 [facility] Comment on above: Performed By: #### C BC ####[facility] Bjfftzszhr7320 [place] [address]DrIrina Rocha Lymphocytes/100 WBC (Bld) 44.4 % Normal 20.5-60.0 [facility] Comment on above: Performed By: #### C BC ####[facility] Yotjrqhlhj[address] [place], [place] [address]DrIrina Rocha MANUAL DIFF REQ NO Normal [facility] Comment on above: Performed By: #### C BC ####[facility] Ztlszzlaoq6[address] [place], [place] [address]DrIrina Rocha MCH (RBC) [Entitic mass] 25.0 pg Critically low 26.7-34.0 [facility] Comment on above: Performed By: #### C BC ####[facility] Sbktzlpflq[address] [place], [place] [address]DrIrina Rocha MCHC (RBC) [Mass/Vol] 30.3 g/dL Normal 29.9-35.2 [facility] Comment on above: Performed By: #### C BC ####[facility] Joteqqydam3[address] [place], [place] [address]DrIrina Rocha MCV (RBC) [Entitic vol] 82.4 fL Normal 81.0-99.0 [facility] Comment on above: Performed By: #### C BC ####[facility] Wanptnzfza[address]20[address] [place], [place] [address]DrIrina Rocha MONO # 0.3 103/ul Normal 0.3-0.8 [facility] Comment on above: Performed By: #### C BC ####[facility] Qdmcpgxlze5[address] [place] [phone] Rocha Monocytes/100 WBC (Bld) 5.1 % Normal 1.7-12.0 [facility] Comment on above: Performed By: #### C BC ####[facility] Pjxyozzoyq6325 [place] [phone] Rocha NEUT # 2.5 103/ul Normal 1.4-6.5 [facility] Comment on above: Performed By: #### C BC ####[facility] Atftzeljcc6082 [place] [address]DrIrina Ricardo Rocha Neutrophils/100 WBC (Bld) 48.0 % Normal 43.0-75.0 [facility] Comment on above: Performed By: #### C BC ####[facility] Whduxwnonk87[address] [place], [place] [address]Dr. Ricardo Rocha Platelet mean volume (Bld) [Entitic vol] 10.7 fL Normal 9.5-13.5 [facility] Comment on above: Performed By: #### C BC ####[facility] Tewalvvlet[address] [place], [place] [phone]. Ricardo Rocha PLT 261 103/ul Normal 150-450 [facility] Comment on above: Performed By: #### C BC ####[facility] Gtbqdqyazm5[address] [place] [phone]. Ricardo Rocha RBC 4.20 106/ul Normal 4.20-5.40 [facility] Comment on above: Performed By: #### C BC ####[facility] Jlrfcfmdsj1738 [place] [phone] Ricardo Rocha WBC 5.3 103/ul Normal 4.0-11.0 [facility] Comment on above: Performed By: #### C BC ####[facility] Fhozkicsma[address] [place], [place] [phone] Ricardo Rocha GLYCOHEMOGLOBIN A1Con 2021 ADA RECOMMENDATION SEE BELOW Normal [facility] Comment on above: Result Comment: ADA RECOMMENDED LIMIT 4.0 - 6.0 ADA THERAPEUTIC TARGET < 7.0 ACTION SUGGESTED > 7.0 Performed By: #### A 1C ####[facility] Dnffscamdu10[address] [place] [phone]. Ricardo Rocha Glucose [Mass/Vol] 289 mg/dL Normal [facility] Comment on above: Performed By: #### A 1C ####[facility] Bgtjocgjwr3865 [place] [phone]. Ricardo Rocha HbA1c (Bld) [Mass fraction] 11.7 % Critically high 4.5-6.2 [facility] Comment on above: Performed By: #### A 1C ####[facility] Cvkmofdgad[address] [place] [address]Dr. Ricardo Rocha LIPID PROFILEon 07-06-2022 CHOL-HDL RATIO NORM SEE BELOW Normal [facility] Comment on above: Result Comment: 3.3 - 4.4 LOW RISK 4.4 - 7.1 AVERAGE RISK 7.1 - 11.0 MODERATE RISK >11.0 HIGH RISK Performed By: #### T SH, CMP, LIPID ####[facility] Vejsssnjgn87[address] [place] [address]Dr. Ricardo Rocha Cholesterol [Mass/Vol] 284 mg/dL Critically high <=200 [facility] Comment on above: Performed By: #### T SH, CMP, LIPID ####[facility] Inxnmzuiab26[address] [place] [address]Dr. Ricardo Rocha Cholesterol in HDL [Mass/Vol] 40 mg/dL Normal 40-60 [facility] Comment on above: Performed By: #### T SH, CMP, LIPID ####[facility] Focvtpmdjp5547 [place] [phone]. Ricardo Rocha Cholesterol in LDL [Mass/Vol] 167.8 mg/dL Normal [facility] Comment on above: Performed By: #### T SH, CMP, LIPID ####[facility] Hwojdszjpf3[address] [place] [phone]. Ricardo Rocha Cholesterol.total/Cho lesterol in HDL [Mass ratio] 7.1 {ratio} Normal [facility] Comment on above: Performed By: #### T SH, CMP, LIPID ####[facility] Qfgczybebs2939 [place] [phone]. Ricardo Rocha HDL NORMAL > or = 60 mg/dl - LO W CARDIOVASCULAR RISK <40 mg/dl - HIGH CARDIOVASCULAR RISK Normal [facility] Comment on above: Performed By: #### T SH, CMP, LIPID ####[facility] Gfedfgwdsz32[address] [place] [phone]. Ricardo Rocha LDL CALC NORMAL SEE BELOW Normal [facility] Comment on above: Result Comment: <100 mg/dl OPTIMAL 100 - 129 mg/dl NEAR OR ABOVE OPTIMAL 130 - 159 mg/dl BORDERLINE HIGH 160 - 189 mg/dl HIGH >190 mg/dl VERY HIGH Performed By: #### T SH, CMP, LIPID ####[facility] Bvktxdwpml3935 [place] [address]DrIrina Rocha Triglyceride [Mass/Vol] 381 mg/dL Critically high <=150 [facility] Comment on above: Performed By: #### T SH, CMP, LIPID ####[facility] Baomixvkmn4319 [place] [address]DrIrina Rocha VLDL CALC 76.2 mg/dL Normal [facility] Comment on above: Performed By: #### T SH, CMP, LIPID ####[facility] Rkuavvoztc4589 [place] [phone] Rocha MICROALBUMIN, RAND URon 11- mALB <1.3 Normal <=30.0 [facility] Comment on above: Performed By: #### M ALBR ####[facility] Axmppvceki26[address] [place] [address]DrIrina Rocha PROF 14(COMP METB)on 022 Albumin [Mass/Vol] 3.3 g/dL Critically low 3.4-5.0 Th [facility] Comment on above: Performed By: #### T SH, CMP, LIPID ####[facility] Nuolysvudj2852 [place] [address]DrIrina Rocha Albumin/Globulin [Mass ratio] 0.5 {ratio} Normal [facility] Comment on above: Performed By: #### T SH, CMP, LIPID ####[facility] Kuwcfydbsv0635 [place] [address]Dr. Ricardo Rocha ALP [Catalytic activity/Vol] 129 U/L Critically high 46-116 [facility] Comment on above: Performed By: #### T SH, CMP, LIPID ####[facility] Oypsqrtqfi035[address] [place] [address]Dr. Ricardo Aj ALT [Catalytic activity/Vol] 22 U/L Normal 14-59 [facility] Comment on above: Performed By: #### T SH, CMP, LIPID ####[facility] Tetjjoetsg6852 [place] [address]Dr. Ricardo Rocha Anion gap [Moles/Vol] 16.1 mmol/L Normal [facility] Comment on above: Performed By: #### T SH, CMP, LIPID ####[facility] Tsrrtufxmt[address] [place], [place] [address]Dr. Ricardo Aj AST [Catalytic activity/Vol] 22 U/L Normal 15-37 [facility] Comment on above: Performed By: #### T SH, CMP, LIPID ####[facility] Tdgwgphxsj[address] [place], [place] [address]Dr. Ricardo Aj Bilirubin [Mass/Vol] 0.2 mg/dL Normal 0.2-1.0 [facility] Comment on above: Performed By: #### T SH, CMP, LIPID ####[facility] Vfvraqcveg20[address] [place] [address]Dr. Nanomarcial Rocha Calcium [Mass/Vol] 9.4 mg/dL Normal 8.5-10.[address] [facility] Comment on above: Performed By: #### T SH, CMP, LIPID ####[facility] Zxjxovjfdw4350 [place] [address]Dr. Ricardo Rocha Chloride [Moles/Vol] 102 mmol/L Normal 98-107 [facility] Comment on above: Performed By: #### T SH, CMP, LIPID ####[facility] Bsurietbdm4568 [place] [address]Dr. Nanomarcial Rocha CO2 [Moles/Vol] 18.4 mmol/L Critically low 21.0-32.0 [facility] Comment on above: Performed By: #### T SH, CMP, LIPID ####[facility] Cjtjhcizci6823 [place] [address]Dr. Ricardo Rocha Creatinine [Mass/Vol] 2.01 mg/dL Critically high 0.55-1.02 [facility] Comment on above: Performed By: #### T SH, CMP, LIPID ####[facility] Ecoaccpato64[address] [place] [address]Dr. Ricardo Rocha EGFR-AF BELIZEAN 30 mL/min/1.73m2 Critically low >=60 [facility] Comment on above: Performed By: #### T SH, CMP, LIPID ####[facility] Thlpbktcgw4016 [place] [address]Dr. Ricardo Rocha EGFR-NON AF BELIZEAN 25 mL/min/1.73m2 Critically low >=60 [facility] Comment on above: Performed By: #### T SH, CMP, LIPID ####[facility] Ghmuyuqfbm6438 [place] [address]Dr. Ricardo Rocha Globulin (S) [Mass/Vol] 6.3 g/dL Normal [facility] Comment on above: Performed By: #### T SH, CMP, LIPID ####[facility] Xrwwkvditj8320 [place] [address]Dr. Ricardo Rocha Glucose [Mass/Vol] 118 mg/dL Critically high 74-106 [facility] Comment on above: Performed By: #### T SH, CMP, LIPID ####[facility] Slhngmmmwy0791 [place] [address]Dr. Ricardo Rocha Potassium [Moles/Vol] 5.5 mmol/L Critically high 3.5-5.1 [facility] Comment on above: Performed By: #### T SH, CMP, LIPID ####[facility] Cgtodorvqp2443 [place] [address]Dr. Ricardo Rocha Protein [Mass/Vol] 9.6 g/dL Critically high 6.4-8.2 [facility] Comment on above: Performed By: #### T SH, CMP, LIPID ####[facility] Ancvrrqazx9681 [place] [address]Dr. Ricardo Rocha Sodium [Moles/Vol] 131 mmol/L Critically low 136-145 Th [facility] Comment on above: Performed By: #### T ANTONIA, CMP, LIPID ####[facility] Xhabtahnqf3175 [place] [address]Dr. Ricardo Rocha Urea nitrogen [Mass/Vol] 45.0 mg/dL Critically high 7.0-18.0 [facility] Comment on above: Performed By: #### T ANTONIA, CMP, LIPID ####[facility] Qdbxjrrarg[address] [place], [place] [address]Dr. Ricardo Rocha Urea nitrogen/Creatinine [Mass ratio] 22.4 mg/mg Normal [facility] Comment on above: Performed By: #### T ANTONIA, CMP, LIPID ####[facility] Igbarrbhyi[address] [place], [place] [address]Dr. Ricardo Rocha TSHon 07-06-2022 TSH 1.178 uIU/mL Normal 0.358-3.740 [facility] Comment on above: Performed By: #### T ANTONIA, CMP, LIPID ####[facility] Egyyiutyeu[address] [place], [place] [address]Dr. Ricardo Rocha UA RANDOM W/MICROSCOPICon BACTERIA NONE SEEN Normal NONE SEEN [facility] Comment on above: Performed By: #### U AMIC ####[facility] Wxyqguuahm[address] [place], [place] [address]Dr. Ricardo Rocha Bilirubin Ql (U) Negative Normal NEGATIVE [facility] Comment on above: Performed By: #### U AMIC ####[facility] Bjwpepwkua[address] [place], [place] [address]Dr. Ricardo Rocha CAST NONE SEEN Normal NONE SEEN [facility] Comment on above: Performed By: #### U AMIC ####[facility] Nojuwlmvvs4[address] [place], [place] [address]Dr. Yilan Rocha Clarity (U) CLEAR Normal CLEAR [facility] Comment on above: Performed By: #### U AMIC ####[facility] Qicrbroean4673 [place] [address]Dr. Ricardo Rocha Color (U) LT. YELLOW Normal YELLOW [facility] Comment on above: Performed By: #### U AMIC ####[facility] Zftdsccaar6579 [place] [phone]. Ricardo Rocha Crystals LM Nom (Urine sed) NONE SEEN Normal NONE SEEN [facility] Comment on above: Performed By: #### U AMIC ####[facility] Wstrfpflch3044 [place] [address]Dr. Ricardo Rocha Epithelial cells LM Ql (Urine sed) NONE SEEN Normal NONE SEEN /RARE [facility] Comment on above: Performed By: #### U AMIC ####[facility] Euczgebmuv[address] [place], [place] [address]Dr. Ricardo Rocha Glucose Ql (U) Negative Normal NEGATIVE [facility] Comment on above: Performed By: #### U AMIC ####[facility] Pyahebfnwn[address] [place], [place] [address]Dr. Ricardo Rocha Hemoglobin Ql (U) Negative Normal NEGATIVE [facility] Comment on above: Performed By: #### U AMIC ####[facility] Wlmesntyrs[address] [place], [place] [address]Dr. Ricardo Rocha Ketones Ql (U) Negative Normal NEGATIVE [facility] Comment on above: Performed By: #### U AMIC ####[facility] Ilmykrisqk[address] [place], [place] [address]Dr. Ricardo Rocha LEUKOCYTES Negative Normal NEGATIVE [facility] Comment on above: Performed By: #### U AMIC ####[facility] Nyedawysme[address] [place], [place] [address]Dr. Ricardo Rocha MUCOUS NONE SEEN Normal NONE SEEN [facility] Comment on above: Performed By: #### U AMIC ####[facility] Qlorymzcxb60[address] [place], [place] [address]Dr. Ricardo Rocha Nitrite Ql (U) Negative Normal NEGATIVE [facility] Comment on above: Performed By: #### U AMIC ####[facility] Nqlyizuclq5550 [place] [phone]. Ricardo Aj pH (U) 5.5 [pH] Normal 5-9 [facility] Comment on above: Performed By: #### U AMIC ####[facility] Bxslzwilaa4062 [place] [address]Dr. Ricardo Rocha RBC NONE SEEN Abnormal 0-2 [facility] Comment on above: Performed By: #### U AMIC ####[facility] Xjlhvrkdkd5425 [place] [address]Dr. Nanomarcial Rocha SPEC GRAVITY 1.020 Normal 1.005-<=1.0 25 [facility] Comment on above: Performed By: #### U AMIC ####[facility] Posimsfewb[address] [place], [place] [address]Dr. Ricardo Rocha UA PROTEIN Negative Normal NEGATIVE/ TRACE [facility] Comment on above: Performed By: #### U AMIC ####[facility] Tdnxftymgi28[address] [place], [place] [address]Dr. Nanomarcial Rocha Urobilinogen Qn (U) 0.2 {Madeleine'U}/dL Normal 0.2 - 1. 0 [facility] Comment on above: Performed By: #### U AMIC ####[facility] Jqqsfevtih[address] [place], [place] [address]Dr. Nanomarcial Rocha WBC NONE SEEN Normal NONE SEEN [facility] Comment on above: Performed By: #### U AMIC ####[facility] Qruimpngea[address] [place], [place] [address]Dr. Nanomarcial Rocha CBC W MANUAL DIFFon 06-16-20 22 ATYPICAL LYMPH # Normal [facility] Comment on above: Performed By: #### C DWAINE ####[facility] Fasuskilfs[address] [place], [place] [address]Dr. Ricardo Rocha ATYPICAL LYMPH % Normal [facility] Comment on above: Performed By: #### C DWAINE ####[facility] Kxxqcydfia17[address] [place], [place] [address]Dr. Ricardo Rocha BAND # 0.2 103/ul Normal 0.0-0.3 [facility] Comment on above: Performed By: #### C BCRED ####[facility] Pfticqmyum[address] [place] [address]Dr. Ricardo Rocha BAND % 2 % Normal 0-5 [facility] Comment on above: Performed By: #### C BCRED ####[facility] Iohnjkdtnw8122 [place] [address]Dr. Nanolan Rocha BASOM # 0.00 103/ul Normal 0.00-0.10 [facility] Comment on above: Performed By: #### C DWAINE ####[facility] Mrbacfjzhp4969 [place] [address]Dr. Ricardo Rocha BASOM % 0.0 % Critically low 0.2-2.0 [facility] Comment on above: Performed By: #### C DWAINE ####[facility] Jvpwpabwlz[address] [place], [place] [address]Dr. Ricardo Rocha BLAST # Normal [facility] Comment on above: Performed By: #### C DWAINE ####[facility] Ceebsccuaw[address] [place], [place] [address]Dr. Ricardo Rocha BLAST % Normal [facility] Comment on above: Performed By: #### C DWAINE ####[facility] Fzmhrpadrz[address] [place], [place] [address]Dr. Ricardo Rocha CORRECTED WBC Normal 4.0-11.0 [facility] Comment on above: Performed By: #### C DWAINE ####[facility] Gzrnfvpwif7718 [place] [address]Dr. Ricardo Rocha EOS # 0.11 103/ul Normal 0.00-0.70 [facility] Comment on above: Performed By: #### C DWAINE ####[facility] Pgcpsurtyk[address] [place], [place] [address]Dr. Ricardo Rocha EOS% 1.0 % Normal 0.9-7.0 [facility] Comment on above: Performed By: #### C DWAINE ####[facility] Gkxukixpbb86[address] [place], [place] [address]Dr. Yilan Rocha HCT 24.2 % Critically low 36.0-48.0 [facility] Comment on above: Performed By: #### C DWAINE ####[facility] Oolwcpjrjq5857 [place], [place] [address]De. Ricardo Rocha HGB 7.9 g/dl Critically low 12.0-16.0 [facility] Comment on above: Performed By: #### C DWAINE ####[facility] Leuibiiztg1318 [place] [phone]. Ricardo Rocha LYMPHM # 1.81 103/ul Normal 1.20-3.80 [facility] Comment on above: Performed By: #### C DWAINE ####[facility] Tksepzfzte1830 [place] [phone]. Ricardo Rocha LYMPHM% 16.0 % Critically low 20.5-60.0 [facility] Comment on above: Performed By: #### C DWAINE ####[facility] Qxeelhnolr3322 [place] [phone]. Ricardo Rocha MCH 25.2 pg Critically low 26.7-34.0 [facility] Comment on above: Performed By: #### C DWAINE ####[facility] Cptcsriukv7267 [place] [phone]. Ricardo Rocha MCHC 32.6 g/dl Normal 29.9-35.2 [facility] Comment on above: Performed By: #### C DWAINE ####[facility] Hveshxdeom4483 [place] [phone]. Ricardo Rocha MCV 77.3 fL Critically low 81.0-99.0 [facility] Comment on above: Performed By: #### C DWAINE ####[facility] Mkvgjmvtgt4448 [place] [phone]. Ricardo Rocha METAMYELOCYTE # 0.5 103/ul Normal [facility] Comment on above: Performed By: #### C DWAINE ####[facility] Bhdneegodl6425 [place] [phone]. Ricardo Rocha METAMYELOCYTE % 4 % Normal [facility] Comment on above: Performed By: #### C DWAINE ####[facility] Mrogglfall7816 [place], [place] [address]Pd. Ricardo Rocha MONOM# 0.45 103/ul Normal 0.30-0.80 [facility] Comment on above: Performed By: #### C DWAINE ####[facility] Azwbtjzqjz5728 [place], [place] [address]Nr. Ricardo Rocha MONOM% 4.0 % Normal 1.7-12.0 [facility] Comment on above: Performed By: #### C DWAINE ####[facility] Pafvvklrtw2490 [place] [phone]. Ricardo Rocha MPV 10.4 fL Normal 9.5-13.5 [facility] Comment on above: Performed By: #### C DWAINE ####[facility] Mjwxuiopop5667 [place] [phone]. Ricardo Rocha MYELOCYTE # 0.5 103/ul Normal [facility] Comment on above: Performed By: #### C DWAINE ####[facility] [facility] [address] [place], [place] [address]Cd. Ricardo Rocha MYELOCYTE % 4 % Normal [facility] Comment on above: Performed By: #### C DWAINE ####[facility] Qqpqilczjc39[address] [place] [phone]. Ricardo Rocha NRBC Normal [facility] Comment on above: Performed By: #### Esteban ISIDRO ####[facility] Qgrdcsomvp6619 [place] [phone]. Ricardo Rocha PLT 325 103/ul Normal 150-450 [facility] Comment on above: Performed By: #### C DWAINE ####[facility] Nqgrsasezq6569 [place] [phone]. Ricardo Rocha RBC 3.13 106/ul Critically low 4.20-5.40 The [facility] Comment on above: Performed By: #### C DWAINE ####[facility] Mndizovxwb4[address] [place] [id number]. Ricardo Rocha RDW 13.7 % Normal 11.0-15.0 [facility] Comment on above: Performed By: #### C BCMAN ####[facility] Sryhrbr[address] [place] [address]Dr. Ricardo Aj SEG # 7.80 103/ul Critically high 1.40-6.50 [facility] Comment on above: Performed By: #### C BCMAN ####[facility] Lvxmjoqsis[address] [place] [address]Dr. Ricardo Aj SEG % 69.0 % Normal 43.0-75.0 [facility] Comment on above: Performed By: #### C BCMAN ####[facility] Hdthkpopsx1638 [place] [address]Dr. Ricardo Rocha WBC 11.3 103/ul Critically high 4.0-11.0 [facility] Comment on above: Performed By: #### C DWAINE ####[facility] Mwvhcftwyk4323 [place] [address]DrIrina Rocha PROF 14(COMP METB)on 022 Albumin [Mass/Vol] 1.7 g/dL Critically low 3.4-5.0 [facility] Comment on above: Performed By: #### C MP ####[facility] [address]re[address] [place], [place] [address]DrIrina Rocha Albumin/Globulin [Mass ratio] 0.4 {ratio} Normal [facility] Comment on above: Performed By: #### C MP ####[facility] Ihtnddydox52[address] [place] [address]Dr. Ricardo Rocha ALP [Catalytic activity/Vol] 174 U/L Critically high 46-116 [facility] Comment on above: Performed By: #### C MP ####[facility] Luvxwdamgi6193 [place] [address]Dr. Ricardo Rocha ALT [Catalytic activity/Vol] 14 U/L Normal 14-59 [facility] Comment on above: Performed By: #### C MP ####[facility] Whmwensatd8125 [place] [address]DrIrina Rocha Anion gap [Moles/Vol] 10.8 mmol/L Normal [facility] Comment on above: Performed By: #### C MP ####[facility] Vttgsdvohe4482 [place] [address]Dr. Ricardo Rocha AST [Catalytic activity/Vol] 13 U/L Critically low 15-37 [facility] Comment on above: Performed By: #### C MP ####[facility] Vfdsmegcod1399 [place] [phone]. Ricardo Rocha Bilirubin [Mass/Vol] 0.3 mg/dL Normal 0.2-1.0 [facility] Comment on above: Performed By: #### C MP ####[facility] Bqnukaewsy[address] [place], [place] [address]Dr. Ricardo Rocha Calcium [Mass/Vol] 8.2 mg/dL Critically low 8.5-10.1 [facility] Comment on above: Performed By: #### C MP ####[facility] Xkutgmmbey[address] [place], [place] [address]Dr. Ricardo Rocha Chloride [Moles/Vol] 104 mmol/L Normal 98-107 [facility] Comment on above: Performed By: #### C MP ####[facility] Mcjxqfiwac[address] [place], [place] [address]Dr. Ricardo Rocha CO2 [Moles/Vol] 22.4 mmol/L Normal 21.0-32.0 [facility] Comment on above: Performed By: #### C MP ####[facility] Znwpvkcufa[address] [place], [place] [address]Dr. Ricardo Aj Creatinine [Mass/Vol] 1.29 mg/dL Critically high 0.55-1.02 [facility] Comment on above: Performed By: #### C MP ####[facility] Cfckecrljc[address] [place], [place] [address]Dr. Ricardo Rocha EGFR-AF BELIZEAN 50 mL/min/1.73m2 Critically low >=60 [facility] Comment on above: Performed By: #### C MP ####[facility] Gkwjhohuaj[address] [place], [place] [address]Dr. Ricardo Rocha EGFR-NON AF BELIZEAN 42 mL/min/1.73m2 Critically low >=60 [facility] Comment on above: Performed By: #### C MP ####[facility] Avlvjnrslm1296 [place] [address]Dr. Ricardo Rocha Globulin (S) [Mass/Vol] 4.8 g/dL Normal [facility] Comment on above: Performed By: #### C MP ####[facility] Uiogdbihym4912 [place] [address]Dr. Ricardo Aj Glucose [Mass/Vol] 262 mg/dL Critically high 74-106 T [facility] Comment on above: Performed By: #### C MP ####[facility] Pgnywdnoux[address] [place], [place] [address]Dr. Nanomarcial Aj Potassium [Moles/Vol] 3.2 mmol/L Critically low 3.5-5.1 [facility] Comment on above: Performed By: #### C MP ####[facility] Pdirspyfle76[address] [place], [place] [address]Dr. Ricardo Rocha Protein [Mass/Vol] 6.5 g/dL Normal 6.4-8.[address] [facility] Comment on above: Performed By: #### C MP ####[facility] Txsxqnwnys[address] [place], [place] [address]Dr. Ricardo Aj Sodium [Moles/Vol] 134 mmol/L Critically low 136-145 Th [facility] Comment on above: Performed By: #### C MP ####[facility] Sjjsddfocd89[address] [place], [place] [address]Dr. Nanomarcial Aj Urea nitrogen [Mass/Vol] 20.0 mg/dL Critically high 7.0-18.0 [facility] Comment on above: Performed By: #### C MP ####[facility] Djnzghggcp489[address] [place], [place] [address]Dr. Nanomarcial Aj Urea nitrogen/Creatinine [Mass ratio] 15.5 mg/mg Normal [facility] Comment on above: Performed By: #### C MP ####[facility] Zccsvqbtzw69[address] [place], [place] [address]Dr. Ricardo Rocha CBC AUTO DIFFon 06-15-2022 BASO # 0.1 103/ul Normal 0.0-0.1 [facility] Comment on above: Performed By: #### C BC ####[facility] Ryowsxnwwt3525 [place] [address]Dr. Ricardo Rocha Basophils/100 WBC (Bld) 0.7 % Normal 0.2-2.0 [facility] Comment on above: Performed By: #### C BC ####[facility] Rvkuwcxrgf[address] [place], [place] [address]Dr. Ricardo Rocha EO # 0.1 103/ul Normal 0.0-0.7 [facility] Comment on above: Performed By: #### C BC ####[facility] Vgfhcrcory[address] [place], [place] [address]Dr. Ricardo Rocha Eosinophils/100 WBC (Bld) 0.7 % Critically low 0.9-7.0 [facility] Comment on above: Performed By: #### C BC ####[facility] Zdsqvxbdum[address] [place], [place] [address]Dr. Ricardo Rocha Erythrocyte distribution width (RBC) [Ratio] 13.7 % Normal 11.0-15.0 [facility] Comment on above: Performed By: #### C BC ####[facility] Drxstfkzgk18[address] [place], [place] [address]Dr. Ricardo Rocha Hematocrit (Bld) [Volume fraction] 26.7 % Critically low 36.0-48.0 [facility] Comment on above: Performed By: #### C BC ####[facility] Gcxltglerj[address] [place], [place] [address]Dr. Ricardo Rocha Hemoglobin (Bld) [Mass/Vol] 8.4 g/dL Critically low 12.0-16.0 [facility] Comment on above: Performed By: #### C BC ####[facility] Zosqbuguqb[address] [place], [place] [address]Dr. Ricardo Rocha IG # 0.83 10e3/ul Critically high 0.00-0.03 [facility] [place] Comment on above: Performed By: #### C BC ####[facility] Ejkvusuqbi7983 [place] [address]Dr. Nanomarcial Rocha IG % 6.2 % Critically high 0.0-0.5 [facility] Comment on above: Performed By: #### C BC ####[facility] Fnlnkekazk3[address] [place] [address]Dr. Ricardo Rocha LYMPH # 1.3 103/ul Normal 1.2-3.8 [facility] Comment on above: Performed By: #### C BC ####[facility] Vrcdvtnxft7019 [place] [address]Dr. Nanomarcial Rocha Lymphocytes/100 WBC (Bld) 9.6 % Critically low 20.5-60.0 [facility] Comment on above: Performed By: #### C BC ####[facility] Oivhndvhww[address] [place], [place] [address]Dr. Ricardo Rocha MANUAL DIFF REQ NO Normal [facility] Comment on above: Performed By: #### C BC ####[facility] Rphwodxxce9554 [place] [address]Dr. Ricardo Aj MCH (RBC) [Entitic mass] 25.1 pg Critically low 26.7-34.0 [facility] Comment on above: Performed By: #### C BC ####[facility] Uojbgsqpyx[address] [place], [place] [address]Dr. Ricardo Aj MCHC (RBC) [Mass/Vol] 31.5 g/dL Normal 29.9-35.2 [facility] Comment on above: Performed By: #### C BC ####[facility] Geliuhyjst[address] [place], [place] [address]Dr. Ricardo Rocha MCV (RBC) [Entitic vol] 79.7 fL Critically low 81.0-99.0 [facility] Comment on above: Performed By: #### C BC ####[facility] Whwosjfedf[address] [place], [place] [address]DrIrina Rocha MONO # 1.0 103/ul Critically high 0.3-0.8 [facility] Comment on above: Performed By: #### C BC ####[facility] Zkurmcftov[address] [place], [place] [address]Dr. Ricardo Rocha Monocytes/100 WBC (Bld) 7.3 % Normal 1.7-12.0 [facility] Comment on above: Performed By: #### C BC ####[facility] Uikvvyobck4023 [place] [address]Dr. Ricardo Rocha NEUT # 10.2 103/ul Critically high 1.4-6.5 [facility] Comment on above: Performed By: #### C BC ####[facility] Mdayrvepwc7486 [place] [address]Dr. Ricardo Rocha Neutrophils/100 WBC (Bld) 75.5 % Critically high 43.0-75.0 [facility] Comment on above: Performed By: #### C BC ####[facility] Klifalbnaj7450 [place] [address]Dr. Ricardo Rocha Platelet mean volume (Bld) [Entitic vol] 11.8 fL Normal 9.5-13.5 [facility] Comment on above: Performed By: #### C BC ####[facility] Rhsrdbruax8106 [place] [address]Dr. Ricardo Rocha PLT 208 103/ul Normal 150-450 [facility] Comment on above: Performed By: #### C BC ####[facility] Bvhkipvbvu7242 [place] [address]Dr. Ricardo Rocha RBC 3.35 106/ul Critically low 4.20-5.40 [facility] Comment on above: Performed By: #### C BC ####[facility] Ixtnupwmdr5620 [place] [phone]. Ricardo Rocha WBC 13.5 103/ul Critically high 4.0-11.0 [facility] Comment on above: Performed By: #### C BC ####[facility] Ghmzbwteus6272 [place] [address]Dr. Ricardo Rocha CULTURE BLOODon 06-15-2022 Microscopic examination of blood, culture Culture Observations: NO GROWTH AT 5 DAYS Normal [facility] Comment on above: Performed By: #### B LDCX2 ####[facility] Zieknlklif[address] [place], [place] [address]Dr. Ricardo Rocha Microscopic examination of blood, culture Culture Observations: NO GROWTH AT 5 DAYS Normal [facility] Comment on above: Performed By: #### B LDCX1 ####[facility] Vzxqoilinh[address] [place], [place] [address]Dr. Ricardo Aj Covid-19 PCR (CVDTBH)on 05-22 SARS-CoV-2 (COVID-19) RNA ADRIEL+probe Ql (Unsp spec) Not detected Normal NOT DETECTED [facility] Comment on above: Result Comment: When [...] for this test is supported by the Laundry Routeman of Health and Human Service's declaration that [...] be used). Performed By: #### C VDTBH ####[facility] Ajamhsdelk[address] [place], [place] [address]Dr. Ricardo Aj POINT OF CARE GLUCOSEon 05-22 Glucose [Mass/Vol] 366 mg/dL Critically high 74-106 [facility] Comment on above: Performed By: #### P OCGLUC ####[facility] Iakubhjyvs[address] [place], [place] [address]Dr. Ricardo Rocha Glucose [Mass/Vol] 229 mg/dL Critically high 74-106 [facility] Comment on above: Performed By: #### P OCGLUC ####[facility] Actpbgwhiz[address] [place], [place] [address]Dr. Nanomarcial Rocha Glucose [Mass/Vol] 258 mg/dL Critically high 74-106 T [facility] Comment on above: Performed By: #### P OCGLUC ####[facility] Brdsymycsd[address] [place], [place] [address]Dr. Ricardo Rocha PROF 14(COMP METB)on 022 Albumin [Mass/Vol] 1.8 g/dL Critically low 3.4-5.0 [facility] Comment on above: Performed By: #### C MP ####[facility] Chmmbejoxa[address] [place], [place] [address]Dr. Ricardo Rocha Albumin/Globulin [Mass ratio] 0.4 {ratio} Normal [facility] Comment on above: Performed By: #### C MP ####[facility] Cbflavxvgs[address] [place], [place] [address]Dr. Ricardo Rocha ALP [Catalytic activity/Vol] 196 U/L Critically high 46-116 [facility] Comment on above: Performed By: #### C MP ####[facility] Xxsdmydhfv457[address] [place], [place] [address]Dr. Ricardo Rocha ALT [Catalytic activity/Vol] 18 U/L Normal 14-59 [facility] Comment on above: Performed By: #### C MP ####[facility] Qviwnnrigi627[address] [place], [place] [address]Dr. Ricardo Rocha Anion gap [Moles/Vol] 16.3 mmol/L Normal [facility] Comment on above: Performed By: #### C MP ####[facility] Bcpngeqvvj33[address] [place], [place] [address]Dr. Ricardo Rocha AST [Catalytic activity/Vol] 22 U/L Normal 15-37 [facility] Comment on above: Performed By: #### C MP ####[facility] Ddmtkzdbrg[address] [place], [place] [address]Dr. Ricardo Rocha Bilirubin [Mass/Vol] 0.4 mg/dL Normal 0.2-1.0 [facility] Comment on above: Performed By: #### C MP ####[facility] Bvhjirmces7[address] [place], [place] [address]Dr. Ricardo Rocha Calcium [Mass/Vol] 8.2 mg/dL Critically low 8.5-10.1 Th e [facility] Comment on above: Performed By: #### C MP ####[facility] Honlaxieww7[address] [place] [address]Dr. Ricardo Rocha Chloride [Moles/Vol] 103 mmol/L Normal 98-107 [facility] Comment on above: Performed By: #### C MP ####[facility] Yjybevwxtj[address] [place], [place] [address]Dr. Ricardo Rocha CO2 [Moles/Vol] 19.0 mmol/L Critically low 21.0-32.0 [facility] Comment on above: Performed By: #### C MP ####[facility] Zlywdtthxp[address] [place], [place] [address]Dr. Ricardo Rocha Creatinine [Mass/Vol] 1.32 mg/dL Critically high 0.55-1.02 [facility] Comment on above: Performed By: #### C MP ####[facility] Byitndaaeb[address] [place], [place] [address]Dr. Ricardo Rocha EGFR-AF BELIZEAN 49 mL/min/1.73m2 Critically low >=60 [facility] Comment on above: Performed By: #### C MP ####[facility] Jdmrqbkgxd914[address] [place], [place] [address]Dr. Ricardo Rocha EGFR-NON AF BELIZEAN 41 mL/min/1.73m2 Critically low >=60 [facility] Comment on above: Performed By: #### C MP ####[facility] Ywqnipnpxc[address] [place], [place] [address]Dr. Ricardo Rocha Globulin (S) [Mass/Vol] 5.0 g/dL Normal [facility] Comment on above: Performed By: #### C MP ####[facility] Paeosngvqb4[address] [place], [place] [address]Dr. Ricardo Rocha Glucose [Mass/Vol] 228 mg/dL Critically high 74-106 T [facility] Comment on above: Performed By: #### C MP ####[facility] Hfcblasijp0332[address] [place], [place] [address]Dr. Ricardo Rocha Potassium [Moles/Vol] 3.3 mmol/L Critically low 3.5-5.1 [facility] Comment on above: Performed By: #### C MP ####[facility] Qgzjsplsod135[address] [place], [place] [address]Dr. Ricardo Rocha Protein [Mass/Vol] 6.8 g/dL Normal 6.4-8.[address] [facility] Comment on above: Performed By: #### C MP ####[facility] Cqxtpezfnr[address] [place], [place] [address]Dr. Ricardo Rocha Sodium [Moles/Vol] 135 mmol/L Critically low 136-145 Th [facility] Comment on above: Performed By: #### C MP ####[facility] Aqctfpwcye335[address] [place], [place] [address]Dr. Ricardo Rocha Urea nitrogen [Mass/Vol] 23.0 mg/dL Critically high 7.0-18.0 [facility] Comment on above: Performed By: #### C MP ####[facility] Jpgnkspdqo25[address] [place], [place] [address]Dr. Ricardo Rocha Urea nitrogen/Creatinine [Mass ratio] 17.4 mg/mg Normal [facility] Comment on above: Performed By: #### C MP ####[facility] Nozizxcxly44[address] [place], [place] [address]Dr. Ricardo Rocha UA (CLEAN/CATCH) SURFACE GRINDER/MICRO I F IND.on 06-15-2022 Bilirubin Ql (U) Negative Normal NEGATIVE [facility] Comment on above: Performed By: #### U MICRO, UACSIND ####[facility] Jhfohqrfzc[address] [place], [place] [address]Dr. Ricardo Rocha Clarity (U) CLEAR Normal CLEAR [facility] Comment on above: Performed By: #### U MICRO, UACSIND ####[facility] K[address]ecyfuhd[address] [place], [place] [address]Dr. Ricardo Rocha Color (U) LT. YELLOW Normal YELLOW [facility] Comment on above: Performed By: #### U MICRO, UACSIND ####[facility] Famhusqdbi74[address] [place], [place] [address]Dr. Ricardo Rocha Glucose Ql (U) 250 mg/dl Abnormal NEGATIVE [facility] Comment on above: Performed By: #### U MICRO, UACSIND ####[facility] Dnreawmerp8443 [place] [address]Dr. Ricardo Rocha Hemoglobin Ql (U) TRACE-LYSED Abnormal NEGATIVE [facility] Comment on above: Performed By: #### U MICRO, UACSIND ####[facility] Zoxdqyowrb27[address] [place], [place] [address]Dr. Ricardo Rocha Ketones Ql (U) 15 mg/dl Abnormal NEGATIVE [facility] Comment on above: Performed By: #### U MICRO, UACSIND ####[facility] Cklsneottu[address] [place], [place] [address]Dr. Ricardo Rocha LEUKOCYTES Negative Normal NEGATIVE [facility] Comment on above: Performed By: #### U MICRO, UACSIND ####[facility] Nfutfmtnyu[address] [place], [place] [address]Dr. Ricardo Rocha Nitrite Ql (U) Negative Normal NEGATIVE [facility] Comment on above: Performed By: #### U MICRO, UACSIND ####[facility] Uodlfgkijg[address] [place], [place] [address]Dr. Ricardo Aj pH (U) 6.0 [pH] Normal 5-9 [facility] Comment on above: Performed By: #### U MICRO, UACSIND ####[facility] Wlmzkveytl86[address] [place], [place] [address]Dr. Nanomarcial Rocha SPEC GRAVITY 1.010 Normal 1.005-<=1.[address] [place] [address] Comment on above: Performed By: #### U MICRO, UACSIND ####[facility] Dnxmgigvbk[address] [place], [place] [address]Dr. Ricardo Rocha UA PROTEIN Negative Normal NEGATIVE/ TRACE [facility] Comment on above: Performed By: #### U MICRO, UACSIND ####[facility] [address]jieevkjfq[address] [place], [place] [address]Dr. Ricardo Rocha UR MICRO IND INDICATED Normal [facility] Comment on above: Performed By: #### U MICRO, UACSIND ####[facility] Tmfdwqeytk232[address] [place] [address]Dr. Ricardo Rocha Urobilinogen Qn (U) 0.2 {Madeleine'U}/dL Normal 0.2 - 1. 0 [facility] Comment on above: Performed By: #### U MICRO, UACSIND ####[facility] [address]mmwuoqek4[address] [place] [address]Dr. Ricardo Rocha URINE MICROSCOPIC ONLYon BACTERIA NONE SEEN Normal NONE SEEN [facility] Comment on above: Performed By: #### U MICRO, UACSIND ####[facility] Taqdeivwpe8563 [place] [address]Dr. Ricardo Rocha Bacteria identified Cx Nom (U) NOT INDICATED Normal [facility] Comment on above: Performed By: #### U MICRO, UACSIND ####[facility] Ruymvbpbct0218 [place] [address]Dr. Ricardo Rocha CAST NONE SEEN Normal NONE SEEN [facility] Comment on above: Performed By: #### U MICRO, UACSIND ####[facility] Sdhugqrljq0601 [place] [address]Dr. Ricardo Rocha Crystals LM Nom (Urine sed) NONE SEEN Normal NONE SEEN [facility] Comment on above: Performed By: #### U MICRO, UACSIND ####[facility] Pmebnnszsl0161 [place] [address]Dr. Ricardo Rocha Epithelial cells LM Ql (Urine sed) FEW Abnormal NONE SEEN /RARE [facility] Comment on above: Performed By: #### U MICRO, UACSIND ####[facility] K[address]rshjcd[address] [place], [place] [address]Dr. Ricardo Rocha MUCOUS NONE SEEN Normal NONE SEEN [facility] Comment on above: Performed By: #### U MICRO, UACSIND ####[facility] Dkakraimrz[address] [place], [place] [address]Dr. Ricardo Rocha RBC 2-5 Abnormal 0-2 [facility] Comment on above: Performed By: #### U MICRO, UACSIND ####[facility] Fvebodiadp[address] [place], [place] [address]Dr. Ricardo Rocha WBC 2-5 Abnormal NONE SEEN [facility] Comment on above: Performed By: #### U MICRO, UACSIND ####[facility] Lvccyogppt[address] [place], [place] [address]Dr. Ricardo Rocha YEAST PRESENT Abnormal NONE SEEN [facility] Comment on above: Performed By: #### U MICRO, UACSIND ####[facility] Edixtzpjrh98[address] [place] [address]Dr. Ricardo Rocha CBC AUTO DIFFon 06-14-2022 BASO # 0.0 103/ul Normal 0.0-0.1 [facility] Comment on above: Performed By: #### C BC ####[facility] Nsmnxkjjbl[address] [place], [place] [address]Dr. Ricardo Rocha Basophils/100 WBC (Bld) 0.4 % Normal 0.2-2.0 [facility] Comment on above: Performed By: #### C BC ####[facility] Ljukeuyzao[address] [place], [place] [address]Dr. Ricardo Rocha EO # 0.0 103/ul Normal 0.0-0.7 [facility] Comment on above: Performed By: #### C BC ####[facility] Ksgfqmnpue[address] [place], [place] [address]Dr. Ricardo Rocha Eosinophils/100 WBC (Bld) 0.4 % Critically low 0.9-7.0 [facility] Comment on above: Performed By: #### C BC ####[facility] Vduwdswuwr[address] [place], [place] [address]Dr. Ricardo oRcha Erythrocyte distribution width (RBC) [Ratio] 13.8 % Normal 11.0-15.0 [facility] Comment on above: Performed By: #### C BC ####[facility] Lvkiasjoko[address] [place], [place] [address]DrIrina Rocha Hematocrit (Bld) [Volume fraction] 26.2 % Critically low 36.0-48.0 [facility] Comment on above: Performed By: #### C BC ####[facility] Nlmsvdewuq[address] [place], [place] [address]Dr. Ricardo Rocha Hemoglobin (Bld) [Mass/Vol] 8.3 g/dL Critically low 12.0-16.0 [facility] Comment on above: Performed By: #### C BC ####[facility] Umkicyaboi[address] [place] [address]Dr. Nanomarcial Rocha IG # 0.24 10e3/ul Critically high 0.00-0.03 [facility] Comment on above: Performed By: #### C BC ####[facility] Rcoeznazpo[address] [place] [address]Dr. Ricardo Rocha IG % 2.3 % Critically high 0.0-0.5 The [facility] Comment on above: Performed By: #### C BC ####[facility] Nqygyjvl[address] [place], [place] [address]Dr. Ricardo Rocha LYMPH # 1.1 103/ul Critically low 1.2-3.8 The [facility] Comment on above: Performed By: #### C BC ####[facility] Asayetcwfz9839[address] [place], [place] [address]Dr. Ricardo Rocha Lymphocytes/100 WBC (Bld) 10.2 % Critically low 20.5-60.0 The [facility] Comment on above: Performed By: #### C BC ####[facility] Lbxdoxjqdk76[address] [place], [place] [address]Dr. Nanomarcial Rocha MANUAL DIFF REQ NO Normal The [facility] Comment on above: Performed By: #### C BC ####[facility] Crlaxhqbsh[address] [place], [place] [address]Dr. Nanomarcial Aj MCH (RBC) [Entitic mass] 25.5 pg Critically low 26.7-34.0 The [facility] Comment on above: Performed By: #### C BC ####[facility] Dczmfdokby04[address] [place], [place] [address]Dr. Nanomarcial Aj MCHC (RBC) [Mass/Vol] 31.7 g/dL Normal 29.9-35.2 The [facility] Comment on above: Performed By: #### C BC ####[facility] Vfdpqxmmde[address] [place], [place] [address]Dr. Ricardo Aj MCV (RBC) [Entitic vol] 80.6 fL Critically low 81.0-99.0 The [facility] Comment on above: Performed By: #### C BC ####[facility] [address]al[address] [place] [address]Dr. Ricardo Rocha MONO # 0.7 103/ul Normal 0.3-0.8 The [facility] Comment on above: Performed By: #### C BC ####[facility] Lyuwhddtik23[address] [place] [address]Dr. Ricardo Rocha Monocytes/100 WBC (Bld) 6.7 % Normal 1.7-12.0 The [facility] Comment on above: Performed By: #### C BC ####[facility] Rreishkrxw9933[address] [place], [place] [address]Dr. Nanomarcial Aj NEUT # 8.5 103/ul Critically high 1.4-6.5 The [facility] Comment on above: Performed By: #### C BC ####[facility] Zrlpkhewrv25[address] [place], [place] [address]Dr. Nanomarcial Rocha Neutrophils/100 WBC (Bld) 80.0 % Critically high 43.0-75.0 The [facility] Comment on above: Performed By: #### C BC ####[facility] Oynbbinctk[address] [place] [address]Dr. Ricardo Aj Platelet mean volume (Bld) [Entitic vol] 12.1 fL Normal 9.5-13.5 The [facility] Comment on above: Performed By: #### C BC ####[facility] Zjuewyxiuf[address] [place] [address]Dr. Ricardo Aj PLT 173 103/ul Normal 150-450 The [facility] Comment on above: Performed By: #### C BC ####[facility] Lqqorcadoc92[address] [place], [place] [address]DrIrina Rocha RBC 3.25 106/ul Critically low 4.20-5.40 The [facility] Comment on above: Performed By: #### C BC ####[facility] Awybqhvthb[address] [place], [place] [address]Dr. Ricardo Rocha WBC 10.6 103/ul Normal 4.0-11.0 [facility] Comment on above: Performed By: #### C BC ####[facility] [address]elnecobox[address] [place] [address]Dr. Ricardo Rocha POINT OF CARE GLUCOSEon 05-22 Glucose [Mass/Vol] 237 mg/dL Critically high 74-106 [facility] Comment on above: Performed By: #### P OCGLUC ####[facility] Oznyeherfk03[address] [place] [address]Dr. Ricardo Rocha Glucose [Mass/Vol] 296 mg/dL Critically high 74-106 [facility] Comment on above: Performed By: #### P OCGLUC ####[facility] Oekxewkwdr68[address] [place] [address]Dr. Ricardo Rocha Glucose [Mass/Vol] 406 mg/dL Critically high 74-106 [facility] Comment on above: Performed By: #### P OCGLUC ####[facility] Ookxvippaf8[address] [place] [address]Dr. Ricardo Rocha Glucose [Mass/Vol] 447 mg/dL Critically high -106 [facility] Comment on above: Performed By: #### P OCGLUC ####[facility] Elgysyokzz71[address] [place] [address]Dr. Ricardo Rocha Glucose [Mass/Vol] 319 mg/dL Critically high -106 [facility] Comment on above: Performed By: #### P OCGLUC ####[facility] Oiodvhwnho0341 [place] [address]Dr. Ricardo Rocha PROF 14(COMP METB)on 022 Albumin [Mass/Vol] 1.6 g/dL Critically low 3.4-5.0 [facility] Comment on above: Performed By: #### C MP ####[facility] Bshmapegef59[address] [place] [address]Dr. Ricardo Rocha Albumin/Globulin [Mass ratio] 0.3 {ratio} Normal [facility] Comment on above: Performed By: #### C MP ####[facility] Ywqzqxhlba5780 [place] [phone]. Ricardo Rocha ALP [Catalytic activity/Vol] 201 U/L Critically high 46-116 [facility] Comment on above: Performed By: #### C MP ####[facility] Ftyoqljxho3035 [place] [address]Dr. Ricardo Rocha ALT [Catalytic activity/Vol] 23 U/L Normal 14-59 [facility] Comment on above: Performed By: #### C MP ####[facility] Sqbzvjqtkr4146 [place] [address]Dr. Ricardo Rocha Anion gap [Moles/Vol] 16.0 mmol/L Normal [facility] Comment on above: Performed By: #### C MP ####[facility] Kwbpsgafyi5522 [place] [address]Dr. Ricardo Rocha AST [Catalytic activity/Vol] 21 U/L Normal 15-37 [facility] Comment on above: Performed By: #### C MP ####[facility] Dcizpofpnc[address] [place], [place] [address]Dr. Ricardo Rocha Bilirubin [Mass/Vol] 0.4 mg/dL Normal 0.2-1.0 [facility] Comment on above: Performed By: #### C MP ####[facility] Lqerlnoqbm[address] [place], [place] [address]Dr. Ricardo Rocha Calcium [Mass/Vol] 7.6 mg/dL Critically low 8.5-10.1 [facility] Comment on above: Performed By: #### C MP ####[facility] Plaoihtyuw[address] [place] [address]Dr. Ricardo Rocha Chloride [Moles/Vol] 105 mmol/L Normal 98-107 The [facility] Comment on above: Performed By: #### C MP ####[facility] Ubuyuxnmvu424[address] [place], [place] [address]Dr. Ricardo Rocha CO2 [Moles/Vol] 17.3 mmol/L Critically low 21.0-32.0 The [facility] Comment on above: Performed By: #### C MP ####[facility] Qnmizwlgyd1167 [place] [address]Dr. Ricardo Rocha Creatinine [Mass/Vol] 1.54 mg/dL Critically high 0.55-1.02 [facility] Comment on above: Performed By: #### C MP ####[facility] Dmefnbmvzo8244 [place] [address]Dr. Ricardo Rocha EGFR-AF BELIZEAN 41 mL/min/1.73m2 Critically low >=60 [facility] Comment on above: Performed By: #### C MP ####[facility] Untcnpuklm24[address] [place] [address]Dr. Ricardo Rocha EGFR-NON AF BELIZEAN 34 mL/min/1.73m2 Critically low >=60 [facility] Comment on above: Performed By: #### C MP ####[facility] Ncqvjbeffg[address] [place], [place] [address]Dr. Ricardo Rocha Globulin (S) [Mass/Vol] 4.7 g/dL Normal [facility] Comment on above: Performed By: #### C MP ####[facility] Mcoadysazl1730[address] [place], [place] [address]Dr. Ricardo Rocha Glucose [Mass/Vol] 277 mg/dL Critically high 74-106 T [facility] Comment on above: Performed By: #### C MP ####[facility] Txgexbecua[address] [place], [place] [address]Dr. Ricardo Rocha Potassium [Moles/Vol] 3.3 mmol/L Critically low 3.5-5.1 [facility] Comment on above: Performed By: #### C MP ####[facility] Kbthjckhxn34[address] [place] [address]Dr. Ricardo Rocha Protein [Mass/Vol] 6.3 g/dL Critically low 6.4-8.2 Th [facility] Comment on above: Performed By: #### C MP ####[facility] Vpscibhwyk[address] [place], [place] [address]Dr. Ricardo Rocha Sodium [Moles/Vol] 135 mmol/L Critically low 136-145 Th [facility] Comment on above: Performed By: #### C MP ####[facility] Bezhcqmvxx7037[address] [place], [place] [address]Dr. Ricardo Rocha Urea nitrogen [Mass/Vol] 29.0 mg/dL Critically high 7.0-18.0 The [facility] Comment on above: Performed By: #### C MP ####[facility] Pongtrwjeg15[address] [place], [place] [address]Dr. Ricardo Rocha Urea nitrogen/Creatinine [Mass ratio] 18.8 mg/mg Normal The [facility] Comment on above: Performed By: #### C MP ####[facility] Ttecsoxmsf94[address] [place], [place] [address]Dr. Ricardo Aj CBC AUTO DIFFon 06-13-2022 BASO # 0.0 103/ul Normal 0.0-0.1 The [facility] Comment on above: Performed By: #### C BC ####[facility] Noidkhnfct[address] [place], [place] [address]Dr. Nanomarcial Rocha Basophils/100 WBC (Bld) 0.2 % Normal 0.2-2.0 The [facility] Comment on above: Performed By: #### C BC ####[facility] Zlzowxfrma[address] [place], [place] [address]Dr. Ricardo Aj EO # 0.1 103/ul Normal 0.0-0.7 The [facility] Comment on above: Performed By: #### C BC ####[facility] Lhpdkhuzra26[address] [place], [place] [address]Dr. Ricardo Aj Eosinophils/100 WBC (Bld) 0.6 % Critically low 0.9-7.0 The [facility] Comment on above: Performed By: #### C BC ####[facility] Cobbhkohpa[address] [place], [place] [address]Dr. Ricardo Rocha Erythrocyte distribution width (RBC) [Ratio] 14.2 % Normal 11.0-15.0 The [facility] Comment on above: Performed By: #### C BC ####[facility] Bvpdretbwt[address] [place], [place] [address]Dr. Ricardo Rocha Hematocrit (Bld) [Volume fraction] 27.9 % Critically low 36.0-48.0 The [facility] Comment on above: Performed By: #### C BC ####[facility] Lmqnrfaddl73[address] [place] [phone]. Ricardo Rocha Hemoglobin (Bld) [Mass/Vol] 8.6 g/dL Critically low 12.0-16.0 [facility] Comment on above: Performed By: #### C BC ####[facility] Azcsblfppj01[address] [place] [phone]. Ricardo Rocha IG # 0.08 10e3/ul Critically high 0.00-0.03 [facility] Comment on above: Performed By: #### C BC ####[facility] Vnucddigbl8865 [place] [phone]. Ricardo Rocha IG % 0.8 % Critically high 0.0-0.5 [facility] Comment on above: Performed By: #### C BC ####[facility] Jnoriqcfmy16[address] [place] [address]DrIrina Ricardo Rocha LYMPH # 0.9 103/ul Critically low 1.2-3.8 [facility] Comment on above: Performed By: #### C BC ####[facility] Mmqhhvqwdw2404 [place] [phone]. Ricardo Rocha Lymphocytes/100 WBC (Bld) 8.9 % Critically low 20.5-60.0 [facility] Comment on above: Performed By: #### C BC ####[facility] Cvkqojvlxo1371 [place] [phone] Ricardo Rocha MANUAL DIFF REQ NO Normal The [facility] Comment on above: Performed By: #### C BC ####[facility] Ojsbwhjbds1827 [place] [phone]. Ricardo Rocha MCH (RBC) [Entitic mass] 25.1 pg Critically low 26.7-34.0 The [facility] Comment on above: Performed By: #### C BC ####[facility] Thgghaguec3549 [place] [phone]. Ricardo Aj MCHC (RBC) [Mass/Vol] 30.8 g/dL Normal 29.9-35.2 [facility] Comment on above: Performed By: #### C BC ####[facility] Nyozckonrm3743 [place] [phone]. Ricardo Rocah MCV (RBC) [Entitic vol] 81.6 fL Normal 81.0-99.0 The [facility] Comment on above: Performed By: #### C BC ####[facility] Gjkhswujua2988 [place] [phone]. Ricardo Rocha MONO # 0.6 103/ul Normal 0.3-0.8 The [facility] Comment on above: Performed By: #### C BC ####[facility] Fcfupyvnfs2801 [place] [phone]. Ricardo Aj Monocytes/100 WBC (Bld) 5.7 % Normal 1.7-12.0 [facility] Comment on above: Performed By: #### C BC ####[facility] Peczdobnre[address] [place], [place] [address]Dr. Ricardo Rocha NEUT # 8.4 103/ul Critically high 1.4-6.5 The [facility] Comment on above: Performed By: #### C BC ####[facility] Kgnymxkkhn[address] [place], [place] [phone]. Ricardo Aj Neutrophils/100 WBC (Bld) 83.8 % Critically high 43.0-75.0 The [facility] Comment on above: Performed By: #### C BC ####[facility] Rqilrewkta[address] [place], [place] [phone]. Ricardo Aj Platelet mean volume (Bld) [Entitic vol] 12.1 fL Normal 9.5-13.5 The [facility] Comment on above: Performed By: #### C BC ####[facility] Modogeojbo6236 [place] [phone]. Ricardo Aj PLT 149 103/ul Critically low 150-450 The [facility] Comment on above: Performed By: #### C BC ####[facility] Lqnjnfddmc9604 [place] [phone]. Ricardo Rocha RBC 3.42 106/ul Critically low 4.20-5.40 The [facility] Comment on above: Performed By: #### C BC ####[facility] Georngcwcy[address] [place], [place] [address]Dr. Ricardo Rocha WBC 10.0 103/ul Normal 4.0-11.0 The [facility] Comment on above: Performed By: #### C BC ####[facility] Nhkqyncudx7189[address] [place], [place] [address]Dr. Ricardo Rocha CULTURE OTHERon 06-13-2022 CULTURE OTHER Normal [facility] Comment on above: Performed By: #### O THCX ####[facility] Eyjiduxfxp5547[address] [place], [place] [address]Dr. Ricardo Rocha CULTURE OTHER Normal [facility] Comment on above: Performed By: #### O THCX ####[facility] Tlpkcbjwdv06[address] [place], [place] [address]Dr. Ricardo Rocha CULTURE OTHER Normal [facility] Comment on above: Performed By: #### O THCX ####[facility] Fhbumnjwwa[address] [place], [place] [address]Dr. Ricardo Rocha GI PANEL (PCR)on 06-13-2022 Adenovirus F 40/41 Not detected Normal NOT DETECTED The [facility] Comment on above: Performed By: #### G IPANEL ####[facility] Hrcylrqwtl[address] [place], [place] [address]Dr. Ricardo Rocha Astrovirus Not detected Normal NOT DETECTED The [facility] Comment on above: Performed By: #### G IPANEL ####[facility] Lqesxvsdcg22[address] [place], [place] [address]Dr. Ricardo Rocha C. Diff toxin A/B Not detected Normal NOT DETECTED The [facility] Comment on above: Performed By: #### G IPANEL ####[facility] Wkshtqqwdf1039[address] [place], [place] [address]Dr. Ricardo Rocha Campylobacter Not detected Normal NOT DETECTED The [facility] Comment on above: Performed By: #### G IPANEL ####[facility] Tscmatwbph[address] [place], [place] [address]Dr. Ricardo Rocha Cryptosporidium Not detected Normal NOT DETECTED The [facility] Comment on above: Performed By: #### G IPANEL ####[facility] Ljilrzvxln2558 [place] [address]Dr. Ricardo Rocha Cyclos. Cayetanensis Not detected Normal NOT DETECTED The [facility] Comment on above: Performed By: #### G IPANEL ####[facility] Yhjiiqghdh20[address] [place], [place] [address]Dr. Ricardo Rocha E. Coli O157 Not Applicable Normal Not Applicable The [facility] Comment on above: Performed By: #### G IPANEL ####[facility] Yvzqvhglmy4626[address] [place], [place] [address]Dr. Ricardo Rocha E. histolytica Not detected Normal NOT DETECTED The [facility] Comment on above: Performed By: #### G IPANEL ####[facility] Zjuchmtrgu7269[address] [place], [place] [address]Dr. Ricardo Rocha EAEC Not detected Normal NOT DETECTED The [facility] Comment on above: Performed By: #### G IPANEL ####[facility] Qqijyignfm4627[address] [place], [place] [address]Dr. Ricardo Rocha EIEC Not detected Normal NOT DETECTED The [facility] Comment on above: Performed By: #### G IPANEL ####[facility] Apiwlzgnmt0437[address] [place], [place] [address]Dr. marcial Rocha EPEC Not detected Normal NOT DETECTED The [facility] Comment on above: Performed By: #### G IPANEL ####[facility] Qukkanrklj490[address] [place], [place] [address]Dr. Nanomarcial Rocha ETEC Not detected Normal NOT DETECTED The [facility] Comment on above: Performed By: #### G IPANEL ####[facility] Zsirwecwno[address] [place], [place] [address]Dr. Nanomarcial Rocha G. Lamblia Not detected Normal NOT DETECTED The [facility] Comment on above: Performed By: #### G IPANEL ####[facility] Vttypocfcu04[address] [place], [place] [address]Dr. Ricardo Rocha GIPANEL CONTROLS PASSED Normal [facility] Comment on above: Performed By: #### G IPANEL ####[facility] Xoqghfiozm[address] [place], [place] [address]Dr. Ricardo MARTINEZ MONIQUE HEADER GI PANEL BACTERIA Normal T [facility] Comment on above: Performed By: #### G IPANEL ####[facility] Jsjzfignbe8726[address] [place], [place] [address]Dr. Nanomarcial Aj MARTINEZHD ECOLI GI PANEL DIARRHEAGEN IC E.COLI / SHIGELLA Normal The [facility] Comment on above: Performed By: #### G IPANEL ####[facility] Dctechltqs8[address] [place], [place] [address]Dr. Ricardo MARTINEZHD INFO SEE BELOW Normal [facility] Comment on above: Result Comment: EAEC - Enteroaggregative E. Coli EPEC- Enteropathogenic E. Coli ETEC- Enterotoxigenic E. Coli lt/st STEC- Shigella-like toxin-producing E. Coli stx1/stx2 EIEC- Shigella/Enteroinvasive E. Coli Performed By: #### G IPANEL ####[facility] Omzossfuej[address] [place], [place] [address]Dr. Ricardo RUBIO PARASITES GI PANEL PARASITES Normal The [facility] Comment on above: Performed By: #### G IPANEL ####[facility] Phnmjuhwod8[address] [place], [place] [address]Dr. Ricardo Rocha GIPALYSONHD VIRUS GI PANEL VIRUSES Normal The [facility] Comment on above: Performed By: #### G IPANEL ####[facility] Fxepbhwdiw6[address] [place], [place] [address]Dr. Ricardo Rocha Norovirus GI/GII Not detected Normal NOT DETECTED The [facility] Comment on above: Performed By: #### G IPANEL ####[facility] Vjogmhznks40[address] [place], [place] [address]Dr. Ricardo Rocha P. Shigelloides Not detected Normal NOT DETECTED The [facility] Comment on above: Performed By: #### G IPANEL ####[facility] Psppsjfrhd946[address] [place], [place] [address]Dr. Ricardo Rocha Rotavirus A Not detected Normal NOT DETECTED The [facility] Comment on above: Performed By: #### G IPANEL ####[facility] Fjzcfvycui56[address] [place], [place] [address]Dr. Ricardo Rocha Salmonella Not detected Normal NOT DETECTED The [facility] Comment on above: Performed By: #### G IPANEL ####[facility] Ekzgvqjpvm9925[address] [place], [place] [address]Dr. Ricardo Rocha Sapovirus Not detected Normal NOT DETECTED The [facility] Comment on above: Performed By: #### G IPANEL ####[facility] Vubaooubyj[address] [place], [place] [address]Dr. Ricardo Rocha STEC Not detected Normal NOT DETECTED The [facility] Comment on above: Performed By: #### G IPANEL ####[facility] Quwteubjzm[address] [place], [place] [address]Dr. Ricardo Rocha Vibrio Not detected Normal NOT DETECTED The [facility] Comment on above: Performed By: #### G IPANEL ####[facility] Yxaawoipoi69[address] [place], [place] [address]Dr. Ricardo Rocha Vibrio Cholera Not detected Normal NOT DETECTED The [facility] Comment on above: Performed By: #### G IPANEL ####[facility] Tyzxiwuczx[address] [place], [place] [address]Dr. Ricardo Rocha Y. Enterocolitica Not detected Normal NOT DETECTED The [facility] Comment on above: Performed By: #### G IPANEL ####[facility] Ybukzdueyq[address] [place], [place] [address]Dr. Ricardo Rocha IRON AND TIBCon 06-13-2022 % SATURATION 19.9 % Normal The [facility] Comment on above: Performed By: #### F ETIBC, B12FOL ####[facility] Fciqkkrkfe[address] [place], [place] [address]Dr. Ricardo Rocha Iron [Mass/Vol] 75.0 ug/dL Normal 50.0-170.0 The [facility] Comment on above: Performed By: #### F ETIBC, B12FOL ####[facility] Kjoputgoxn[address] [place], [place] [address]Dr. Ricardo Rocha TIBC DIRECT 376.0 ug/dL Normal 250.0-450.0 [facility] Comment on above: Performed By: #### F ETIBC, B12FOL ####[facility] [address]avdw[address] [place], [place] [address]Lm. Nanomarcial Aj POINT OF CARE GLUCOSEon 05-22 Glucose [Mass/Vol] 238 mg/dL Critically high -106 [facility] Comment on above: Performed By: #### P OCGLUC ####[facility] Etrssvkdgh7562 [place] [phone]. Ricardo Rocha Glucose [Mass/Vol] 146 mg/dL Critically high -106 [facility] Comment on above: Performed By: #### P OCGLUC ####[facility] Samcyijhvz7394 [place] [phone]. Ricardo Rocha Glucose [Mass/Vol] 143 mg/dL Critically high -106 [facility] Comment on above: Performed By: #### P OCGLUC ####[facility] Ulxpihbptg6583 [place] [address]Dr. Ricardo Rocha Glucose [Mass/Vol] 205 mg/dL Critically high -106 [facility] Comment on above: Performed By: #### P OCGLUC ####[facility] Gzhqfobnrs8808 [place] [address]Dr. Ricardo Rocha Glucose [Mass/Vol] 227 mg/dL Critically high -106 [facility] Comment on above: Performed By: #### P OCGLUC ####[facility] Mvdpdiztyx3551 [place] [address]Dr. Ricardo Rocha PROF 14(COMP METB)on 022 Albumin [Mass/Vol] 1.5 g/dL Critically low 3.4-5.0 Th [facility] Comment on above: Performed By: #### C MP ####[facility] Yulqhprpxm57[address] [place] [address]Dr. Ricardo Rocha Albumin/Globulin [Mass ratio] 0.3 {ratio} Normal [facility] Comment on above: Performed By: #### C MP ####[facility] Kyuixaxusu7707 [place] [phone]. Ricardo Rocha ALP [Catalytic activity/Vol] 136 U/L Critically high 46-116 [facility] Comment on above: Performed By: #### C MP ####[facility] Adhkjqwygp8465 [place] [address]Dr. Ricardo Rocha ALT [Catalytic activity/Vol] 18 U/L Normal 14-59 [facility] Comment on above: Performed By: #### C MP ####[facility] Qejduyabzm7982 [place] [phone]. Ricardo Rocha Anion gap [Moles/Vol] 10.2 mmol/L Normal Th [facility] Comment on above: Performed By: #### C MP ####[facility] Xvnnoasnnx7116 [place] [address]Dr. Ricardo Aj AST [Catalytic activity/Vol] 37 U/L Normal 15-37 [facility] Comment on above: Performed By: #### C MP ####[facility] H[address]zcpxzuz[address] [place], [place] [address]Dr. Ricardo Aj Bilirubin [Mass/Vol] 0.4 mg/dL Normal 0.2-1.0 [facility] Comment on above: Performed By: #### C MP ####[facility] Xikwfadaym[address] [place], [place] [address]Dr. Ricardo Aj Calcium [Mass/Vol] 8.0 mg/dL Critically low 8.5-10.1 [facility] [place] Comment on above: Performed By: #### C MP ####[facility] Vooqppaovt[address] [place], [place] [address]Dr. Nanomarcial Aj Chloride [Moles/Vol] 110 mmol/L Critically high 98-107 [facility] Comment on above: Performed By: #### C MP ####[facility] Lspzunptav[address] [place], [place] [address]Dr. Ricardo Aj CO2 [Moles/Vol] 18.2 mmol/L Critically low 21.0-32.0 [facility] Comment on above: Performed By: #### C MP ####[facility] Ylbgwngytn[address] [place], [place] [address]Dr. Ricardo Rocha Creatinine [Mass/Vol] 1.76 mg/dL Critically high 0.55-1.02 [facility] Comment on above: Performed By: #### C MP ####[facility] Srlvydiqep6399 [place] [phone]. Ricardo Aj EGFR-AF BELIZEAN 35 mL/min/1.73m2 Critically low >=60 [facility] Comment on above: Performed By: #### C MP ####[facility] Uivwowznkg3307 [place] [phone]. Ricardo Aj EGFR-NON AF BELIZEAN 29 mL/min/1.73m2 Critically low >=60 [facility] Comment on above: Performed By: #### C MP ####[facility] Dqwfnyoqdg4443 [place] [phone]. Nanomarcial Rocha Globulin (S) [Mass/Vol] 4.7 g/dL Normal [facility] Comment on above: Performed By: #### C MP ####[facility] Lbgyfhibta0103 [place] [phone]. Ricardo Rocha Glucose [Mass/Vol] 223 mg/dL Critically high 74-106 T [facility] Comment on above: Performed By: #### C MP ####[facility] Qtfplhmzet5962 [place] [phone]. Ricardo Rocha Potassium [Moles/Vol] 3.4 mmol/L Critically low 3.5-5.1 [facility] Comment on above: Performed By: #### C MP ####[facility] Byhkphhpaq3063 [place] [phone]. Ricardo Rocha Protein [Mass/Vol] 6.2 g/dL Critically low 6.4-8.2 Th [facility] Comment on above: Performed By: #### C MP ####[facility] Emkfhxhnhc5035 [place] [phone]. Ricardo Rocha Sodium [Moles/Vol] 135 mmol/L Critically low 136-145 Th [facility] Comment on above: Performed By: #### C MP ####[facility] Lznadicbvo4171 [place] [phone]. Ricardo Rocha Urea nitrogen [Mass/Vol] 33.0 mg/dL Critically high 7.0-18.0 [facility] Comment on above: Performed By: #### C MP ####[facility] Ptomrkfzug[address] [place] [address]Dr. Ricardo Rocha Urea nitrogen/Creatinine [Mass ratio] 18.8 mg/mg Normal [facility] Comment on above: Performed By: #### C MP ####[facility] Cmlfybhwpz8222 [place] [address]Dr. Nanomarcial Rocha VANCOMYCIN TROUGHon 06-13-20 22 VANCOMYCIN TROUGH 15.2 ug/ml Normal 5.0-20.0 [facility] Comment on above: Performed By: #### V ANCT ####[facility] Xvebshfsco[address] [place], [place] [address]Dr. Ricardo Rocha VIT B12 AND FOLATEon 022 Cobalamin (Vitamin B12) [Mass/Vol] 874.0 pg/mL Normal 193.0-986.0 [facility] Comment on above: Performed By: #### F ETIBC, B12FOL ####[facility] Etcprfpusz12[address] [place] [address]Dr. Ricardo Rocha FOLATE 6.60 ng/mL Critically low 8.60-58.90 [facility] Comment on above: Performed By: #### F ETIBC, B12FOL ####[facility] Gykfxknofm9414 [place] [address]Dr. Ricardo Rocha XR FOOT LT MIN 3 VIEWSon XR FOOT LT MIN 3 VIEWS Normal [facility] CBC W MANUAL DIFFon 06-12-20 22 ATYPICAL LYMPH # Normal [facility] Comment on above: Performed By: #### C DWAINE ####[facility] Ghstcpzqzu5683 [place] [address]Dr. Ricardo Rocha ATYPICAL LYMPH % Normal [facility] Comment on above: Performed By: #### C DWAINE ####[facility] Klkzykidfy0360 [place] [address]Dr. Ricardo Rocha BAND # 1.9 103/ul Critically high 0.0-0.3 The [facility] Comment on above: Performed By: #### C DWAINE ####[facility] Equhiwnhho4997 [place] [phone]. Ricardo Rocha BAND % 17 % Critically high 0-5 The [facility] Comment on above: Performed By: #### C BCMAN ####[facility] Lojdlcnwgj6601 [place] [phone]. Ricardo Rocha BASOM # 0.00 103/ul Normal 0.00-0.10 [facility] Comment on above: Performed By: #### C BCMAN ####[facility] Dolntineum5985 [place] [address]Dr. Ricardo Rocha BASOM % 0.0 % Critically low 0.2-2.0 The [facility] Comment on above: Performed By: #### C BCMAN ####[facility] Yhubgljheh1722 [place] [address]Dr. Ricardo Rocha BLAST # Normal [facility] Comment on above: Performed By: #### C BCRED ####[facility] Ryahewlkja[address] [place] [address]Dr. Yimarcial Rocha BLAST % Normal [facility] Comment on above: Performed By: #### C BCRED ####[facility] Ulszoldpme[address] [place] [address]Dr. Ricardo Rohca CORRECTED WBC Normal 4.0-11.0 [facility] Comment on above: Performed By: #### C BCRED ####[facility] [address] [place], [place] [address]Dr. Ricardo Rocha EOS # 0.00 103/ul Normal 0.00-0.70 [facility] Comment on above: Performed By: #### C BCMAN ####[facility] Xpestnmwrl6976 [place] [address]Dr. Ricardo Rocha EOS% 0.0 % Critically low 0.9-7.0 The [facility] Comment on above: Performed By: #### C BCMAN ####[facility] Ozrtshjkbs9691 [place] [address]Dr. Ricardo Rocha HCT 28.0 % Critically low 36.0-48.0 The [facility] Comment on above: Performed By: #### C DWAINE ####[facility] Rnqxbudegf8730 [place], [place] [address]Yk. Ricardo Rocha HGB 8.6 g/dl Critically low 12.0-16.0 [facility] Comment on above: Performed By: #### C DWAINE ####[facility] Tptkhnmsxn3614 [place], [place] [address]Bd. Ricardo Rocha HYPOCHROMASIA SLIGHT Normal [facility] Comment on above: Performed By: #### C DWAINE ####[facility] Efoqwpxwql8727 [place], [place] [address]Xt. Ricardo Rocha LYMPHM # 0.77 103/ul Critically low 1.20-3.80 The [facility] Comment on above: Performed By: #### C DWAINE ####[facility] Xzoofxhynu8332 [place] [phone]. Ricardo Rocha LYMPHM% 7.0 % Critically low 20.5-60.0 [facility] Comment on above: Performed By: #### C DWAINE ####[facility] Eujjmnoyhb7937 [place], [place] [address]Eh. Ricardo Rocha MCH 25.1 pg Critically low 26.7-34.0 [facility] Comment on above: Performed By: #### C DWAINE ####[facility] Wzoaslesno6571 [place], [place] [address]Hk. Ricardo Rocha MCHC 30.7 g/dl Normal 29.9-35.2 [facility] Comment on above: Performed By: #### C DWAINE ####[facility] Urgaffrhwn2556 [place], [place] [address]Ad. Ricardo Rocha MCV 81.9 fL Normal 81.0-99.0 [facility] Comment on above: Performed By: #### C DWAINE ####[facility] Yxxzuicccg9742 [place] [phone]. Ricardo Rocha METAMYELOCYTE # Normal [facility] Comment on above: Performed By: #### C DWAINE ####[facility] Mmcwknjwqv0651 [place] [phone]. Ricardo Rocha METAMYELOCYTE % Normal [facility] Comment on above: Performed By: #### C DWAINE ####[facility] Yslekvnbfy8572 [place] [phone]. Ricardo Rocha MONOM# 0.11 103/ul Critically low 0.30-0.80 [facility] Comment on above: Performed By: #### C DWAINE ####[facility] Mlomjvylja6495 [place] [phone]. Ricardo Rocha MONOM% 1.0 % Critically low 1.7-12.0 [facility] Comment on above: Performed By: #### C DWAINE ####[facility] Ftiomuyqax4069 [place] [address]Dr. Ricardo Rocha MPV 12.6 fL Normal 9.5-13.5 [facility] Comment on above: Performed By: #### C DWAINE ####[facility] Ljprlipssx[address] [place], [place] [phone]. Ricardo Rocha MYELOCYTE # Normal [facility] Comment on above: Performed By: #### C DWAINE ####[facility] Gshxwfemha0781 [place] [phone]. Ricardo Rocha MYELOCYTE % Normal [facility] Comment on above: Performed By: #### C DWAINE ####[facility] Xmwskcrwgv4784 [place] [phone]. Ricardo Rocha NRBC Normal [facility] Comment on above: Performed By: #### C DWAINE ####[facility] Ehokrlrikr9438 [place] [phone]. Ricardo Rocha PLT 140 103/ul Critically low 150-450 The [facility] Comment on above: Performed By: #### C DWAINE ####[facility] Ksqeermrzl5853 [place] [phone]. Ricardo Rocha RBC 3.42 106/ul Critically low 4.20-5.40 [facility] Comment on above: Performed By: #### C DWAINE ####[facility] Thicjfnfys2935 [place] [phone]. Ricardo Rocha RDW 13.7 % Normal 11.0-15.0 [facility] Comment on above: Performed By: #### C DWAINE ####[facility] Ldlcfwqsvt2346 [place] [phone]. Ricardo Rocha SEG # 8.25 103/ul Critically high 1.40-6.50 [facility] Comment on above: Performed By: #### C BCMAN ####[facility] Xovcxbcqfw8079 [place] [address]Dr. Ricardo Rocha SEG % 75.0 % Normal 43.0-75.0 [facility] Comment on above: Performed By: #### C DWAINE ####[facility] Ustbudbxum0852 [place] [address]Dr. Ricardo Aj WBC 11.0 103/ul Normal 4.0-11.0 [facility] Comment on above: Performed By: #### C DWAINE ####[facility] Ljbxgbxjhl0023 [place] [address]Dr. Ricardo Rocha POINT OF CARE GLUCOSEon 05-22 Glucose [Mass/Vol] 200 mg/dL Critically high 74-106 [facility] Comment on above: Performed By: #### P OCGLUC ####[facility] Cdvtvyiqlj7529 [place] [address]Dr. Ricardo Aj Glucose [Mass/Vol] 165 mg/dL Critically high 74-106 [facility] Comment on above: Performed By: #### P OCGLUC ####[facility] Lrovqehkdh8724 [place] [address]Dr. Ricardo Rocha Glucose [Mass/Vol] 152 mg/dL Critically high 74-106 [facility] Comment on above: Performed By: #### P OCGLUC ####[facility] Xoswmehfqv1629 [place] [address]Dr. Ricardo Aj Glucose [Mass/Vol] 154 mg/dL Critically high 74-106 [facility] Comment on above: Performed By: #### P OCGLUC ####[facility] Owpwwctteq4300 [place] [address]Dr. Ricardo Rocha PROF 14(COMP METB)on 06-12- 022 Albumin [Mass/Vol] 1.9 g/dL Critically low 3.4-5.0 Th [facility] Comment on above: Performed By: #### C MP ####[facility] Iaiyoqdavx39[address] [place], [place] [address]Dr. Ricardo Rocha Albumin/Globulin [Mass ratio] 0.4 {ratio} Normal [facility] Comment on above: Performed By: #### C MP ####[facility] Pbnjpvoeru[address] [place], [place] [address]Dr. Ricardo Rocha ALP [Catalytic activity/Vol] 68 U/L Normal 46-116 [facility] Comment on above: Performed By: #### C MP ####[facility] Ngqqgtqdil324[address] [place], [place] [address]Dr. Ricardo Rocha ALT [Catalytic activity/Vol] 16 U/L Normal 14-59 [facility] Comment on above: Performed By: #### C MP ####[facility] Eounpxwyij97[address] [place], [place] [address]Dr. Ricardo Rocha Anion gap [Moles/Vol] 15.1 mmol/L Normal Th [facility] Comment on above: Performed By: #### C MP ####[facility] Kjttpptuse[address] [place], [place] [address]Dr. Ricardo Rocha AST [Catalytic activity/Vol] 26 U/L Normal 15-37 [facility] Comment on above: Performed By: #### C MP ####[facility] Lmkuxgzqrc8044[address] [place], [place] [address]DrIrina Rocha Bilirubin [Mass/Vol] 0.3 mg/dL Normal 0.2-1.0 [facility] Comment on above: Performed By: #### C MP ####[facility] Rrdwweuwal9[address] [place], [place] [address]DrIrina Rocha Calcium [Mass/Vol] 8.0 mg/dL Critically low 8.5-10.1 Th [facility] Comment on above: Performed By: #### C MP ####[facility] Gxpaknpzlo4[address] [place], [place] [address]Dr. Ricardo Aj Chloride [Moles/Vol] 110 mmol/L Critically high 98-107 [facility] Comment on above: Performed By: #### C MP ####[facility] Qgssqmwgxs3774 [place] [address]Dr. Ricardo Rocha CO2 [Moles/Vol] 18.0 mmol/L Critically low 21.0-32.0 [facility] Comment on above: Performed By: #### C MP ####[facility] Qsclohjgac8[address] [place], [place] [address]Dr. Ricardo Aj Creatinine [Mass/Vol] 1.97 mg/dL Critically high 0.55-1.02 [facility] Comment on above: Performed By: #### C MP ####[facility] Qefpbmxnfi[address] [place], [place] [address]Dr. Ricardo Aj EGFR-AF BELIZEAN 31 mL/min/1.73m2 Critically low >=60 [facility] Comment on above: Performed By: #### C MP ####[facility] Giaycjsjwx59[address] [place], [place] [address]Dr. Ricardo Aj EGFR-NON AF BELIZEAN 26 mL/min/1.73m2 Critically low >=60 [facility] Comment on above: Performed By: #### C MP ####[facility] Nlyhzhqnoy[address] [place], [place] [address]Dr. Nanomarcial Rocha Globulin (S) [Mass/Vol] 5.2 g/dL Normal [facility] Comment on above: Performed By: #### C MP ####[facility] Cnihswtixa46[address] [place], [place] [address]Dr. Nanomarcial Rocha Glucose [Mass/Vol] 146 mg/dL Critically high 74-106 T [facility] Comment on above: Performed By: #### C MP ####[facility] Zismuepdqa8424[address] [place], [place] [address]Dr. Ricardo Aj Potassium [Moles/Vol] 3.1 mmol/L Critically low 3.5-5.1 [facility] Comment on above: Performed By: #### C MP ####[facility] Dwutkmnjdv9564[address] [place], [place] [address]Dr. Ricardo Rocha Protein [Mass/Vol] 7.1 g/dL Normal 6.4-8.2 [facility] Comment on above: Performed By: #### C MP ####[facility] Lsxmqugjlr3298 [place] [address]Dr. Ricardo Rocha Sodium [Moles/Vol] 140 mmol/L Normal 136-145 [facility] Comment on above: Performed By: #### C MP ####[facility] Nwehwtwunb3476 [place] [address]Dr. Ricardo Aj Urea nitrogen [Mass/Vol] 30.0 mg/dL Critically high 7.0-18.0 [facility] Comment on above: Performed By: #### C MP ####[facility] Uhxdzglmvo39[address] [place], [place] [address]Dr. Ricardo Aj Urea nitrogen/Creatinine [Mass ratio] 15.2 mg/mg Normal [facility] Comment on above: Performed By: #### C MP ####[facility] Dnhhjftwbz[address] [place], [place] [address]Dr. Ricardo Aj CBC W MANUAL DIFFon 06-11-20 22 ATYPICAL LYMPH # Normal [facility] Comment on above: Performed By: #### C BCMAN ####[facility] Ghzzsukwel[address] [place], [place] [address]Dr. Ricardo Aj ATYPICAL LYMPH % Normal [facility] Comment on above: Performed By: #### C BCMAN ####[facility] Pazdugwyxj8471 [place] [address]Dr. Ricardo Rocha BAND # 1.1 103/ul Critically high 0.0-0.3 The [facility] Comment on above: Performed By: #### C BCMAN ####[facility] Lflsuxmzmn[address] [place], [place] [address]Dr. Ricardo Rocha BAND % 12 % Critically high 0-5 [facility] Comment on above: Performed By: #### C BCMAN ####[facility] Dxvjgydeow5815 [place] [address]Dr. Ricardo Rocha BASOM # 0.00 103/ul Normal 0.00-0.10 [facility] Comment on above: Performed By: #### C DWAINE ####[facility] Zlgsgpdrum0456 [place] [address]Dr. Ricardo Rocha BASOM % 0.0 % Critically low 0.2-2.0 The [facility] Comment on above: Performed By: #### C DWAINE ####[facility] Chtgalkqsi0047 [place] [address]Dr. Ricardo Rocha BLAST # Normal [facility] Comment on above: Performed By: #### C DWAINE ####[facility] Xvgjkyujzq0742 [place] [address]Dr. Ricardo Rocha BLAST % Normal [facility] Comment on above: Performed By: #### C DWAINE ####[facility] Sggxkedwzj[address] [place], [place] [address]Dr. Ricardo Rocha CORRECTED WBC Normal 4.0-11.0 [facility] Comment on above: Performed By: #### C DWAINE ####[facility] Mucdvzsmkq[address] [place], [place] [address]Dr. Ricardo Rocha EOS # 0.00 103/ul Normal 0.00-0.70 [facility] Comment on above: Performed By: #### C DWAINE ####[facility] Ysvpbwufde5399 [place] [address]Dr. Ricardo Rocha EOS% 0.0 % Critically low 0.9-7.0 [facility] Comment on above: Performed By: #### C DWAINE ####[facility] Ftfwmczpow7369 [place] [address]Dr. Ricardo Rocha HCT 32.6 % Critically low 36.0-48.0 [facility] Comment on above: Performed By: #### C DWAINE ####[facility] Lvjnwforvu60[address] [place], [place] [address]Dr. Ricardo Rocha HGB 10.5 g/dl Critically low 12.0-16.0 [facility] Comment on above: Performed By: #### C DWAINE ####[facility] Ulkbmysmaq[address] [place], [place] [address]Dr. Ricardo Rocha LYMPHM # 0.46 103/ul Critically low 1.20-3.80 [facility] Comment on above: Performed By: #### C DWAINE ####[facility] Wtjruhgbmv7608 [place] [address]Dr. Ricardo Rocha LYMPHM% 5.0 % Critically low 20.5-60.0 [facility] Comment on above: Performed By: #### C DWAINE ####[facility] Emgvkpgfmy0906 [place] [address]Dr. Ricardo Rocha MCH 25.3 pg Critically low 26.7-34.0 [facility] Comment on above: Performed By: #### C DWAINE ####[facility] Hwokdcnxio6639 [place] [address]Dr. Ricardo Rocha MCHC 32.2 g/dl Normal 29.9-35.2 [facility] Comment on above: Performed By: #### C DWAINE ####[facility] Pddmxauzet9403 [place] [address]Dr. Ricardo Rocha MCV 78.6 fL Critically low 81.0-99.0 [facility] Comment on above: Performed By: #### C DWAINE ####[facility] Abcblcxfue[address] [place], [place] [address]Dr. Ricardo Rocha METAMYELOCYTE # Normal [facility] Comment on above: Performed By: #### C DWAINE ####[facility] Ewxqurguyo5326 [place] [address]Dr. Ricardo Rocha METAMYELOCYTE % Normal [facility] Comment on above: Performed By: #### C DWAINE ####[facility] Oytmcbvukg9314 [place] [address]Dr. Ricardo Rocha MONOM# 0.28 103/ul Critically low 0.30-0.80 [facility] Comment on above: Performed By: #### C DWAINE ####[facility] Wlmnnifmmy0304 [place] [address]Dr. Ricardo Rocha MONOM% 3.0 % Normal 1.7-12.0 [facility] Comment on above: Performed By: #### C DWAINE ####[facility] Ifamfaaxjb8692 [place], [place] [address]Sb. Ricardo Rocha MPV 11.4 fL Normal 9.5-13.5 [facility] Comment on above: Performed By: #### C DWAINE ####[facility] Lvsrqtcppj5458 [place], [place] [address]Rl. Ricardo Rocha MYELOCYTE # Normal [facility] Comment on above: Performed By: #### C DWAINE ####[facility] Uunueuelkc8635 [place], [place] [address]No. Ricardo Rocha MYELOCYTE % Normal [facility] Comment on above: Performed By: #### C DWAINE ####[facility] Gfihvpiqkc1523 [place] [phone]. Ricardo Rocha NRBC Normal [facility] Comment on above: Performed By: #### C DWAINE ####[facility] Dgircutkha0579 [place] [phone]. Ricardo Rocha PLT 154 103/ul Normal 150-450 [facility] Comment on above: Performed By: #### C DWAINE ####[facility] Mkdheciuix5082 [place] [phone]. Ricardo Rocha RBC 4.15 106/ul Critically low 4.20-5.40 [facility] Comment on above: Performed By: #### C DWAINE ####[facility] Epxiicxteo1201 [place] [phone]. Ricardo Rocha RDW 12.8 % Normal 11.0-15.0 [facility] Comment on above: Performed By: #### C DWAINE ####[facility] Ljjcowaumg7761 [place] [phone]. Ricardo Rocha SEG # 7.36 103/ul Critically high 1.40-6.50 [facility] Comment on above: Performed By: #### C DWAINE ####[facility] Lfjoolmhds0866 [place] [phone]. Ricardo Rocha SEG % 80.0 % Critically high 43.0-75.0 [facility] Comment on above: Performed By: #### C BCMAN ####[facility] Uutoorzdzq5028 [place] [phone]. Ricardo Rocha WBC 9.2 103/ul Normal 4.0-11.0 [facility] Comment on above: Performed By: #### C BCMAN ####[facility] Bwayjffchv4738 [place] [phone]. Ricardo Rocha CT HEAD WO CONon 06-11-2022 CT HEAD WO CON Normal [facility] CULTURE ANAEROBICon 06-11-20 22 CULTURE ANAEROBIC Culture Observations : NO GROWTH OF ANAEROBES AT 72 HOURS. Normal [facility] Comment on above: Performed By: #### A NACX ####[facility] Inadmskvgq4804 [place] [phone]. Ricardo Rocha CULTURE ANAEROBIC Culture Observations : NO GROWTH OF ANAEROBES AT 72 HOURS. Normal [facility] Comment on above: Performed By: #### A NACX ####[facility] Nceynoyfsh[address] [place], [place] [address]Dr. Ricardo Rocha CULTURE BLOODon 06-11-2022 Microscopic examination of blood, culture Culture Observations: Aerobic bottle positive only. Culture Observations: No growth at 5 days in anaerobic bottle Culture Observations: See for Susceptibility testing. Isolate 1 Staphylococcus aureus Growth of Normal [facility] Comment on above: Performed By: #### B LDCX2 ####[facility] Xxotzseejk[address] [place], [place] [address]Dr. Ricardo Rocha CULTURE URINEon 06-11-2022 CULTURE URINE Culture Observations : LIGHT GROWTH OF MIXED GENITAL SHAHLA. NO POTENTIAL PATHOGENS SEEN. Normal [facility] Comment on above: Performed By: #### U RCX ####[facility] Falryuoezy64[address] [place], [place] [address]Dr. Ricardo Rocha Covid-19 PCR (CVDTBH)on 05-22 SARS-CoV-2 (COVID-19) RNA ADRIEL+probe Ql (Unsp spec) Not detected Normal NOT DETECTED [facility] Comment on above: Result Comment: When [...] for this test is supported by the [employer] of Health and Human Service's declaration that [...] longer be used). Performed By: #### [facility] ####[facility] [address] [place], [place] [address]Dr. Ricardo Rocha ER URINE PROFILEon 2 Bilirubin Ql (U) Negative Normal NEGATIVE [facility] Comment on above: Performed By: #### SHAYNA ELENA ####[facility] Szgttsugvi[address] [place], [place] [address]Dr. Ricardo Rocha Clarity (U) CLEAR Normal CLEAR [facility] Comment on above: Performed By: #### JOSLYN ELENARO ####[facility] Dkkbjkdgfy[address] [place], [place] [address]Dr. Ricardo Rocha Color (U) LT. YELLOW Normal YELLOW [facility] Comment on above: Performed By: #### JOSLYN ELENARO ####[facility] Gvinuegncs[address] [place], [place] [address]Dr. Ricardo Rocha ERUAHD A micrscopic examina tion will be performed if indicated. Normal [facility] Comment on above: Performed By: #### JOSLYN ELENARO ####[facility] Kyusqntzoc[address] [place], [place] [address]Dr. Ricardo Rocha Glucose Ql (U) >1000 Abnormal NEGATIVE The [facility] Comment on above: Performed By: #### JOSLYN ELENARO ####[facility] [address] [place] [address]Dr. Ricardo Rocha Hemoglobin Ql (U) LARGE Abnormal NEGATIVE [facility] Comment on above: Performed By: #### SHAYNA ELENA ####[facility] Klleyuzvka[address] [place] [address]Dr. Ricardo Rocha Ketones Ql (U) 15 mg/dl Abnormal NEGATIVE The [facility] Comment on above: Performed By: #### SHAYNA ELENA ####[facility] Xihtrvkdst[address] [place], [place] [address]Dr. Ricardo Rocha LEUKOCYTES Negative Normal NEGATIVE [facility] Comment on above: Performed By: #### SHAYNA ELENA ####[facility] Xvlsugsmnd[address] [place], [place] [address]Dr. Ricardo Rocha Nitrite Ql (U) Negative Normal NEGATIVE The [facility] Comment on above: Performed By: #### SHAYNA ELENA ####[facility] Xapxqyswvu[address] [place], [place] [address]Dr. Ricardo Rocha pH (U) 6.0 [pH] Normal 5-9 [facility] Comment on above: Performed By: #### SHAYNA ELENA ####[facility] Jkttfauzfc[address] [place], [place] [address]Dr. Ricardo Rocha Protein (U) [Mass/Vol] 100 mg/dL Abnormal NEGATIVE/ TRACE The [facility] Comment on above: Performed By: #### SHAYNA ELENA ####[facility] Cpxwfqnwkj7[address] [place], [place] [address]Dr. Ricardo Rocha SPEC GRAVITY 1.020 Normal 1.005-<=1.0 [facility] Comment on above: Performed By: #### SHAYNA ELENA ####[facility] Vkdiypoptg[address] [place], [place] [address]Dr. Ricardo Rocha UR MICRO IND INDICATED Normal [facility] Comment on above: Performed By: #### SHAYNA ELENA ####[facility] Hzqzbllnuk8[address] [place], [place] [address]Dr. Ricardo Rocha Urobilinogen Qn (U) 0.2 {Madeleine'U}/dL Normal 0.2 - 1. 0 [facility] Comment on above: Performed By: #### E SHAYNA HINOJOSA ####[facility] [address] [place] [address]Dr. Ricardo Rocha GRAM STAINon 06-11-2022 DIPHTHEROIDS Normal [facility] Comment on above: Performed By: #### G STAIN ####[facility] Dqlymhqqzd[address] [place], [place] [address]Dr. Ricardo Rocha EPITHELIALS Normal [facility] Comment on above: Performed By: #### G STAIN ####[facility] Wawgztdlzb[address] [place], [place] [address]Dr. Ricardo Rocha FUNGAL ELEMENTS Normal The [facility] Comment on above: Performed By: #### G STAIN ####[facility] Uuzaeuejmz[address] [place], [place] [address]Dr. Ricardo Rocha GRAM NEG BACILLI Normal [facility] Comment on above: Performed By: #### G STAIN ####[facility] Ucuoeqbrvk[address] [place], [place] [address]Dr. Ricardo Rocha GRAM NEG DIPPLOCOCCI Normal [facility] Comment on above: Performed By: #### G STAIN ####[facility] Iwzblkfzmq6[address] [place], [place] [address]Dr. Ricardo Rocha GRAM POS BACILLI Normal [facility] Comment on above: Performed By: #### G STAIN ####[facility] Lukrfmehwd[address] [place], [place] [address]Dr. Ricardo Rocha GRAM POSITIVE COCCI MANY Normal [facility] Comment on above: Performed By: #### G STAIN ####[facility] Ojizwiphbo[address] [place], [place] [address]Dr. Ricardo Rocha GRAM STAIN SOURCE Left great toe tissu e after washout-clean Normal [facility] Comment on above: Performed By: #### G STAIN ####[facility] Kstwjvsozy[address] [place], [place] [address]Dr. Ricardo Rocha GS_DIPTH Normal [facility] Comment on above: Performed By: #### G STAIN ####[facility] Bdwsloajet[address] [place] [id number]. Ricardo Rocha WBC RARE Normal [facility] Comment on above: Performed By: #### G STAIN ####[facility] Snqdguoivv[address] [place] [phone]. Ricardo Rocha DIPHTHEROIDS Normal [facility] Comment on above: Performed By: #### G STAIN ####[facility] M[address] [place] [address]Dr. Ricardo Rocha EPITHELIALS Normal [facility] Comment on above: Performed By: #### G STAIN ####[facility] Gemlilfpdf[address] [place], [place] [address]Dr. Ricardo Rocha FUNGAL ELEMENTS Normal The [facility] Comment on above: Performed By: #### G STAIN ####[facility] Gqtduipqoa[address] [place], [place] [address]Dr. Ricardo Rocha GRAM NEG BACILLI Normal [facility] Comment on above: Performed By: #### G STAIN ####[facility] Eerhekskdp[address] [place], [place] [address]Dr. Ricardo Rocha GRAM NEG DIPPLOCOCCI Normal [facility] Comment on above: Performed By: #### G STAIN ####[facility] Kuarcnxpob259[address] [place], [place] [address]Dr. Ricardo Rocha GRAM POS BACILLI Normal [facility] Comment on above: Performed By: #### G STAIN ####[facility] [address]ib[address] [place] [address]Dr. Ricardo Rocha GRAM POSITIVE COCCI RARE Normal The [facility] Comment on above: Performed By: #### G STAIN ####[facility] [address]ll[address]afh[address] [place] [address]Dr. Ricardo Rocha GRAM STAIN SOURCE Left great toe Normal The [facility] Comment on above: Performed By: #### G STAIN ####[facility] V[address]kt[address] [place] [address]Dr. Ricardo Rocha GS_DIPTH Normal [facility] Comment on above: Performed By: #### G STAIN ####[facility] Isxdxpkjos[address] [place] [address]Dr. Ricardo Rocha WBC RARE Normal [facility] Comment on above: Performed By: #### G STAIN ####[facility] Qtzzqssdem4[address] [place] [address]Dr. Ricardo Rocha DIPHTHEROIDS Normal [facility] Comment on above: Performed By: #### G STAIN ####[facility] Mkbucigvqa[address] [place] [address]Dr. Ricardo Rocha EPITHELIALS Normal [facility] Comment on above: Performed By: #### G STAIN ####[facility] Accbwkaemx[address] [place] [address]Dr. Ricardo Rohca FUNGAL ELEMENTS Normal The [facility] Comment on above: Performed By: #### G STAIN ####[facility] Yzyegpioms[address] [place], [place] [address]Dr. Ricardo Rocha GRAM NEG BACILLI Normal [facility] Comment on above: Performed By: #### G STAIN ####[facility] Ekqoojjbum5180[address] [place], [place] [address]Dr. Ricardo Rocha GRAM NEG DIPPLOCOCCI Normal [facility] Comment on above: Performed By: #### G STAIN ####[facility] Twnkudhvej[address] [place], [place] [address]Dr. Ricardo Rocha GRAM POS BACILLI Normal [facility] Comment on above: Performed By: #### G STAIN ####[facility] Kajmnyqzjw[address] [place], [place] [address]Dr. Ricardo Rocha GRAM POSITIVE COCCI FEW Normal The [facility] Comment on above: Performed By: #### G STAIN ####[facility] Npbptguikk8[address] [place], [place] [address]Dr. Ricardo Rocha GRAM STAIN SOURCE Left great toe abscess Normal The [facility] Comment on above: Performed By: #### G STAIN ####[facility] Togyvdfysn201[address] [place], [place] [address]Dr. Ricardo Rocha GS_DIPTH Normal [facility] Comment on above: Performed By: #### G STAIN ####[facility] Pegdwaddaa[address] [place], [place] [address]Dr. Ricardo Rocha WBC FEW Normal [facility] Comment on above: Performed By: #### G STAIN ####[facility] Bxaiynohou1669[address] [place], [place] [address]Dr. Ricardo Rocha LACTATE/LACTIC ACIDon 2021 Lactate [Moles/Vol] 2.2 mmol/L Critically high 0.4-1.9 [facility] Comment on above: Performed By: #### L ACT ####[facility] Mymragrkzl[address] [place], [place] [address]Dr. Ricardo Rocha POINT OF CARE GLUCOSEon 05-22 Glucose [Mass/Vol] 133 mg/dL Critically high 74-106 [facility] Comment on above: Performed By: #### P OCGLUC ####[facility] Pezgjgwudr[address] [place], [place] [address]Dr. Ricardo Rocha Glucose [Mass/Vol] 215 mg/dL Critically high -106 [facility] Comment on above: Performed By: #### P OCGLUC ####[facility] Vuowjiqicm5[address] [place], [place] [address]Dr. Ricardo Rocha Glucose [Mass/Vol] 207 mg/dL Critically high -106 [facility] Comment on above: Performed By: #### P OCGLUC ####[facility] Msoucousnu4636[address] [place], [place] [address]Dr. Ricardo Rocha Glucose [Mass/Vol] 314 mg/dL Critically high -106 [facility] Comment on above: Performed By: #### P OCGLUC ####[facility] Tyxbdcdoat5232[address] [place], [place] [address]Dr. Ricardo Rocha Glucose [Mass/Vol] 496 mg/dL Critically high -106 [facility] Comment on above: Performed By: #### P OCGLUC ####[facility] Hhgniyoimh7434[address] [place], [place] [address]Dr. Ricardo Rocha Glucose [Mass/Vol] 561 mg/dL Critically high -106 [facility] Comment on above: Result Comment: Prev iously Confirmed Performed By: #### P OCGLUC ####[facility] Upmfwsohae[address] [place], [place] [address]Dr. Ricardo Rocha PROF 14(COMP METB)on 022 Albumin [Mass/Vol] 2.4 g/dL Critically low 3.4-5.0 [facility] Comment on above: Performed By: #### C MP ####[facility] Cylefzjdwk[address] [place], [place] [address]Dr. Ricardo Rocha Albumin/Globulin [Mass ratio] 0.4 {ratio} Normal [facility] Comment on above: Performed By: #### C MP ####[facility] Excaxkpmgu64[address] [place], [place] [address]Dr. Ricardo Rocha ALP [Catalytic activity/Vol] 82 U/L Normal 46-116 [facility] Comment on above: Performed By: #### C MP ####[facility] Ltlqioaqzj5632[address] [place], [place] [address]Dr. Ricardo Rocha ALT [Catalytic activity/Vol] 12 U/L Critically low 14-59 [facility] Comment on above: Performed By: #### C MP ####[facility] Lweplqityo[address] [place], [place] [address]Dr. Ricardo Rocha Anion gap [Moles/Vol] 15.1 mmol/L Normal [facility] Comment on above: Performed By: #### C MP ####[facility] Ynxtpfnsuo[address] [place], [place] [address]Dr. Ricardo Rocha AST [Catalytic activity/Vol] 14 U/L Critically low 15-37 [facility] Comment on above: Performed By: #### C MP ####[facility] Cqtacxaxqg1840[address] [place], [place] [address]Dr. Ricardo Rocha Bilirubin [Mass/Vol] 0.4 mg/dL Normal 0.2-1.0 [facility] Comment on above: Performed By: #### C MP ####[facility] Qpisjdyzwt97[address] [place], [place] [address]Dr. Ricardo Rocha Calcium [Mass/Vol] 8.8 mg/dL Normal 8.5-10.[address] [facility] Comment on above: Performed By: #### C MP ####[facility] [address] [place] [phone]. Ricardo Rocha Chloride [Moles/Vol] 105 mmol/L Normal 98-107 [facility] Comment on above: Performed By: #### C MP ####[facility] [address]xrus[address] [place] [address]Dr. Ricardo Rocha CO2 [Moles/Vol] 21.2 mmol/L Normal 21.0-32.0 [facility] Comment on above: Performed By: #### C MP ####[facility] [address]jur[address] [place] [address]Dr. Ricardo Aj Creatinine [Mass/Vol] 2.03 mg/dL Critically high 0.55-1.02 [facility] Comment on above: Performed By: #### C MP ####[facility] Ktqlnfcb[address] [place], [place] [address]Dr. Ricardo Aj EGFR-AF BELIZEAN 30 mL/min/1.73m2 Critically low >=60 [facility] Comment on above: Performed By: #### C MP ####[facility] Rhehgpzbbd[address] [place], [place] [address]Dr. Ricardo Aj EGFR-NON AF BELIZEAN 25 mL/min/1.73m2 Critically low >=60 [facility] Comment on above: Performed By: #### C MP ####[facility] Fwieev[address] [place] [address]Dr. Ricardo Aj Globulin (S) [Mass/Vol] 5.7 g/dL Normal [facility] Comment on above: Performed By: #### C MP ####[facility] Fusdvcdiql[address] [place] [address]Dr. Ricardo Aj Glucose [Mass/Vol] 309 mg/dL Critically high 74-106 [facility] Comment on above: Performed By: #### C MP ####[facility] N[address]hzoiyi[address] [place] [address]Dr. Nanomarcial Aj Potassium [Moles/Vol] 3.3 mmol/L Critically low 3.5-5.1 [facility] Comment on above: Performed By: #### C MP ####[facility] [address]dx[address]fwb[address] [place] [phone]. Ricardo Rocha Protein [Mass/Vol] 8.1 g/dL Normal 6.4-8.2 [facility] Comment on above: Performed By: #### C MP ####[facility] Phojc[address]xyjc4[address] [place] [phone]. Ricardo Rocha Sodium [Moles/Vol] 138 mmol/L Normal 136-145 [facility] Comment on above: Performed By: #### C MP ####[facility] [address]sc[address]ytjtcu[address] [place] [address]Dr. Ricardo Rocha Urea nitrogen [Mass/Vol] 37.0 mg/dL Critically high 7.0-18.0 [facility] Comment on above: Performed By: #### C MP ####[facility] Hzikaddgbu24[address] [place] [address]Dr. Ricardo Rocha Urea nitrogen/Creatinine [Mass ratio] 18.2 mg/mg Normal [facility] Comment on above: Performed By: #### C MP ####[facility] [address]kw[address] [place] [address]Dr. Ricardo Rocha SED RATE [facility] 2021 SED RATE >130 Critically high <=30 [facility] Comment on above: Performed By: #### S EDR ####[facility] Cspbwfkoxb[address] [place] [address]Dr. Ricardo Rocha URINE MICROSCOPIC ONLYon AMORPHOUS CRYSTALS MODERATE Normal [facility] Comment on above: Performed By: #### JOSLYN ELENARO ####[facility] [address] [place] [phone]. Ricardo Rocha BACTERIA MODERATE Abnormal NONE SEEN [facility] Comment on above: Performed By: #### JOSLYN ELENARO ####[facility] Yywuv[address]tylz[address] [place] [address]Dr. Ricardo Rocha Bacteria identified Cx Nom (U) INDICATED Normal [facility] Comment on above: Performed By: #### JOSLYN ELENARO ####[facility] Zcjoggurgg[address] [place] [address]Dr. Ricardo Rocha CAST NONE SEEN Normal NONE SEEN [facility] Comment on above: Performed By: #### SHAYNA ELENA ####[facility] Syjfgfrzto[address] [place] [address]Dr. Ricardo Rocha Crystals LM Nom (Urine sed) SEEN Abnormal NONE SEEN [facility] Comment on above: Performed By: #### SHAYNA ELENA ####[facility] Ohifjowsyu[address] [place] [address]Dr. Ricardo Rocha Epithelial cells LM Ql (Urine sed) NONE SEEN Normal NONE SEEN /RARE [facility] Comment on above: Performed By: #### SHAYNA ELENA ####[facility] Xptpeqpvty[address] [place], [place] [address]Dr. Ricardo Rocha MUCOUS NONE SEEN Normal NONE SEEN [facility] Comment on above: Performed By: #### SHAYNA ELENA ####[facility] K[address]ckhevtm[address] [place] [address]Dr. Ricardo Rocha RBC 2-5 Abnormal 0-2 [facility] Comment on above: Performed By: #### SHAYNA ELENA ####[facility] Jlqsidvqdl04[address] [place] [address]Dr. Ricardo Rocha WBC 5-10 Abnormal NONE SEEN The [facility] Comment on above: Performed By: #### SHAYNA ELENA ####[facility] Xkdipcbndd[address] [place] [address]Dr. Ricardo Rocha XR CHEST 1 Von 06-11-2022 XR CHEST 1 V Normal [facility] XR FOOT LT MIN 3 VIEWSon XR FOOT LT MIN 3 VIEWS Normal [facility] XR FOOT LT MIN 3 VIEWS Normal [facility] ACETONE SERUMon 06-10-2022 ACETONE Negative Normal NEGATIVE [facility] Comment on above: Performed By: #### A CETON ####[facility] Irdwewjygd[address] [place] [address]Dr. Ricardo Rocha AMMONIAon 06-10-2022 Ammonia (P) [Mass/Vol] ug/dL Critically low [facility] Comment on above: Performed By: #### A MM ####[facility] T[address]ajtbfok[address] [place] [address]Dr. Ricardo Rocha BLOOD CULTURE ID PANELon A. baumannii Not detected Normal NOT DETECTED [facility] Comment on above: Performed By: #### B CID2 ####[facility] Tqgqqxgpsx8[address] [place] [address]Dr. Ricardo Rocha Bacteriodes fragilis Not detected Normal NOT DETECTED [facility] Comment on above: Performed By: #### B CID2 ####[facility] Lmbdwqnobx42[address] [place] [address]Dr. Ricardo Rocha BCID CONTROLS PASSED Normal [facility] Comment on above: Performed By: #### B CID2 ####[facility] Pbpacevxgu4330 [place] [address]Dr. Ricardo Rocha BCIDBTHD BLOOD CULTURE BOTTLE INFORMATION Normal [facility] Comment on above: Performed By: #### B CID2 ####[facility] Afnkdxgdaa[address] [place], [place] [address]Dr. Yimarcial Rocha BCIDHD1 ANTIMICROBIAL RESIST ANCE GENES Normal [facility] Comment on above: Performed By: #### B CID2 ####[facility] Bamynegnro[address] [place], [place] [address]Dr. Ricardo Rocha BCIDHD2 SEE BELOW Normal [facility] Comment on above: Result Comment: Note : Antimicrobial resitance can occur via multiple mechanisms. A Not Detected result for the [employer] antomicrobial resistance gene assays does not indicate antimicrobial susceptibility. Subculturing is required for species identification and susceptibility testing of isolates. Performed By: #### B CID2 ####[facility] [address]iadtidsd[address] [place] [address]Dr. Ricardo Rocha BCIDHD3 Positive Normal [facility] Comment on above: Performed By: #### B CID2 ####[facility] Yosihyvdth41[address] [place] [address]Dr. Ricardo Rocha BCIDHD4 Negative Normal [facility] Comment on above: Performed By: #### B CID2 ####[facility] Hstzoytsmd[address] [place] [phone]. Ricardo Rocha BCIDHD5 YEAST Normal [facility] Comment on above: Performed By: #### B CID2 ####[facility] Rxpsyvkyoi38[address] [place] [address]Dr. Yilan Rocha Bottle Set: Set 1 Normal [facility] Comment on above: Performed By: #### B CID2 ####[facility] Qrriplsyys8956 [place] [address]Dr. Ricardo Rocha Bottle: Aerobic Normal [facility] Comment on above: Performed By: #### B CID2 ####[facility] Gbkrtqorgi26[address] [place] [address]Dr. Ricardo Rocha C. neoformans/gattii Not detected Normal NOT DETECTED [facility] Comment on above: Performed By: #### B CID2 ####[facility] Gmrktwdsmq[address] [place], [place] [address]Dr. Ricardo Rocha Lauren albicans Not detected Normal NOT DETECTED [facility] Comment on above: Performed By: #### B CID2 ####[facility] Ojiloloeaa[address] [place], [place] [address]Dr. Yimarcial Rocha Lauren auris Not detected Normal NOT DETECTED [facility] Comment on above: Performed By: #### B CID2 ####[facility] Qfekylpntx60[address] [place], [place] [address]Dr. Yimarcial Rocha Lauren glabrata Not detected Normal NOT DETECTED [facility] Comment on above: Performed By: #### B CID2 ####[facility] Dkgquicgpf2172 [place] [address]Dr. Yimarcial Rocha Lauren Krusei Not detected Normal NOT DETECTED [facility] Comment on above: Performed By: #### B CID2 ####[facility] Juaykppvga[address] [place], [place] [address]Dr. Yimarcial Rocha Lauren Parapsilosis Not detected Normal NOT DETECTED [facility] Comment on above: Performed By: #### B CID2 ####[facility] Chvovuqbhr[address] [place], [place] [address]Dr. Yimarcial Rocha Lauren Tropicalis Not detected Normal NOT DETECTED [facility] Comment on above: Performed By: #### B CID2 ####[facility] Lkbxndvgri[address] [place], [place] [address]Dr. Ricardo Rocha CTX-M Resistant Gene Not Applicable Normal NOT DETECTED [facility] Comment on above: Performed By: #### B CID2 ####[facility] Mbgxealzat[address] [place], [place] [address]Dr. Ricardo Rocha E. Cloacae complex Not detected Normal NOT DETECTED [facility] Comment on above: Performed By: #### B CID2 ####[facility] Qznjmilueu787[address] [place], [place] [address]Dr. Ricardo Rocha E. faecalis Not detected Normal NOT DETECTED [facility] Comment on above: Performed By: #### B CID2 ####[facility] Wjmucylkyl8423[address] [place], [place] [address]Dr. Ricardo Rocha E. faecium Not detected Normal NOT DETECTED [facility] Comment on above: Performed By: #### B CID2 ####[facility] Lhufprxtnj257[address] [place], [place] [address]Dr. Ricardo Rocha Enterobacteriaceae Not detected Normal NOT DETECTED [facility] Comment on above: Performed By: #### B CID2 ####[facility] Nzmjqzrfcv[address] [place], [place] [address]Dr. Ricardo Rocha Escherichia coli Not detected Normal NOT DETECTED [facility] Comment on above: Performed By: #### B CID2 ####[facility] Wchixywxon[address] [place], [place] [address]Dr. Ricardo Rocha H. influenzae Not detected Normal NOT DETECTED [facility] Comment on above: Performed By: #### B CID2 ####[facility] Tpogbrrecn50[address] [place], [place] [address]Dr. Ricardo Rocha IMP Resistant Gene Not Applicable Normal NOT DETECTED [facility] Comment on above: Performed By: #### B CID2 ####[facility] Glgwnucwzr16[address] [place], [place] [address]Dr. Ricardo Rocha K. oxytoca Not detected Normal NOT DETECTED [facility] Comment on above: Performed By: #### B CID2 ####[facility] [address]vtsvbqnl[address] [place], [place] [id number]. Ricardo Rocha K. pneumoniae Not detected Normal NOT DETECTED [facility] Comment on above: Performed By: #### B CID2 ####[facility] Aswhkkibua[address] [place], [place] [address]Dr. Nanomarcial Rocha Klebsiella aerogenes Not detected Normal NOT DETECTED [facility] Comment on above: Performed By: #### B CID2 ####[facility] Vebuijssnp[address] [place], [place] [address]Dr. Ricardo Rocha KPC Resistant Gene Not Applicable Normal NOT DETECTED [facility] Comment on above: Performed By: #### B CID2 ####[facility] Ldexagcrja710[address] [place], [place] [address]Dr. Ricardo Rocha List. monocytogenes Not detected Normal NOT DETECTED [facility] Comment on above: Performed By: #### B CID2 ####[facility] Rqsuxfyuse585[address] [place], [place] [address]Dr. Ricardo Rocha Mcr-1 Resistant Gene Not Applicable Normal NOT DETECTED [facility] Comment on above: Performed By: #### B CID2 ####[facility] Tygnpyxfbm45[address] [place], [place] [address]Dr. Nanolan Aj mecA/C Not Applicable Normal NOT DETECTED [facility] Comment on above: Performed By: #### B CID2 ####[facility] Bccncpnuzi[address] [place], [place] [address]Dr. Ricardo Rocha mecA/C MREJ Detected Abnormal NOT DETECTED [facility] Comment on above: Performed By: #### B CID2 ####[facility] Yhebmnhtar1139[address] [place], [place] [address]Dr. Ricardo Rocha N. meningitidis Not detected Normal NOT DETECTED [facility] Comment on above: Performed By: #### B CID2 ####[facility] Etdabsrnps79[address] [place], [place] [address]Dr. Ricardo Rocha NDM Resistant Gene Not Applicable Normal NOT DETECTED [facility] Comment on above: Performed By: #### B CID2 ####[facility] Irycdriqew06[address] [place], [place] [address]Dr. Nanomarcial Rocha Oxa-48-like Not Applicable Normal NOT DETECTED [facility] Comment on above: Performed By: #### B CID2 ####[facility] Gbnlrivqlb9[address] [place], [place] [address]Dr. Ricardo Rocha Proteus Not detected Normal NOT DETECTED [facility] Comment on above: Performed By: #### B CID2 ####[facility] Pbwdcllqeg2855[address] [place], [place] [address]Dr. Ricardo Rocha Pseud. aeruginosa Not detected Normal NOT DETECTED [facility] Comment on above: Performed By: #### B CID2 ####[facility] Livurdkojp060[address] [place], [place] [address]Dr. Ricardo Rocha S. maltophilia Not detected Normal NOT DETECTED [facility] Comment on above: Performed By: #### B CID2 ####[facility] Hwivungtrb2433[address] [place], [place] [address]Dr. Ricardo Rocha Salmonella Not detected Normal NOT DETECTED [facility] Comment on above: Performed By: #### B CID2 ####[facility] Hjqysytvsz044[address] [place], [place] [address]Dr. Ricardo Rocha Seratia marcescens Not detected Normal NOT DETECTED [facility] Comment on above: Performed By: #### B CID2 ####[facility] Kraidoqoou879[address] [place], [place] [address]Dr. Ricardo Rocha Site: LEFT AC IV START Normal [facility] Comment on above: Performed By: #### B CID2 ####[facility] Hovjtngtsw6064[address] [place], [place] [address]Dr. Ricardo Rocha Staph. aureus Detected Critically abnormal NOT DETECTED [facility] Comment on above: Performed By: #### B CID2 ####[facility] Vuswxzgmlk8385[address] [place], [place] [address]Dr. Ricardo Rocha Staph. epidermidis Not detected Normal NOT DETECTED [facility] Comment on above: Performed By: #### B CID2 ####[facility] Yvhfsatggb39[address] [place], [place] [address]Dr. Ricardo Rocha Staph. lugdunensis Not detected Normal NOT DETECTED [facility] Comment on above: Performed By: #### B CID2 ####[facility] Qykoghkhgr4975[address] [place], [place] [address]Dr. Nanomarcial Rocha Staphylococcus Detected Critically abnormal NOT DETECTED The [facility] Comment on above: Performed By: #### B CID2 ####[facility] Jzmkxzsyhs2864[address] [place], [place] [address]Dr. Ricardo Rocha Strep. agalactiae Not detected Normal NOT DETECTED [facility] Comment on above: Performed By: #### B CID2 ####[facility] Rruzkgyage8149[address] [place], [place] [address]Dr. Ricardo Rocha Strep. pneumoniae Not detected Normal NOT DETECTED [facility] Comment on above: Performed By: #### B CID2 ####[facility] Tklbexemjz60[address] [place], [place] [address]Dr. Ricardo Rocha Strep. pyogenes Not detected Normal NOT DETECTED [facility] Comment on above: Performed By: #### B CID2 ####[facility] Iyiqnwroon8209[address] [place], [place] [address]Dr. Ricardo Rocha Streptococcus Not detected Normal NOT DETECTED [facility] Comment on above: Performed By: #### B CID2 ####[facility] Uvfwlzottq358[address] [place], [place] [address]Dr. Ricardo Rocha Layne/B Resist. Gene Not Applicable Normal NOT DETECTED [facility] Comment on above: Performed By: #### B CID2 ####[facility] Rpitlrgmvc0460[address] [place], [place] [address]Dr. Ricardo Rocha VIM Resistant Gene Not Applicable Normal NOT DETECTED [facility] Comment on above: Performed By: #### B CID2 ####[facility] Jomotjahxx9212[address] [place], [place] [address]Dr. Ricardo Rocha BLOOD GASES BTYon 06-10-2022 02 MODE ROOM AIR Normal [facility] Comment on above: Performed By: #### A BG ####[facility] Uncazskwwj214[address] [place], [place] [address]Dr. Ricardo Rocha ALLENS TEST Positive Normal [facility] Comment on above: Performed By: #### A BG ####[facility] [address] [place] [address]Dr. Ricardo Rocha Base excess Calc (Bld) [Moles/Vol] -4.5000 mmol/L Critically low -2.0-2.0 [facility] Comment on above: Performed By: #### A BG ####[facility] Htzvwalpwg2559[address] [place], [place] [address]Dr. Ricardo Rocha BIPAP PRESSURE Normal [facility] Comment on above: Performed By: #### A BG ####[facility] Ngsltmihqe8865[address] [place], [place] [address]Dr. Ricardo Rocha CPAP Normal [facility] Comment on above: Performed By: #### A BG ####[facility] Wyswgotvlj3832[address] [place], [place] [address]Dr. Ricardo Rocha FIO2 Normal [facility] Comment on above: Performed By: #### A BG ####[facility] Kjoqbutxzr807[address] [place], [place] [address]Dr. Ricardo Rocha HCO3 (Bld) [Moles/Vol] 21.4 mmol/L Critically low 22.0-26.0 [facility] Comment on above: Performed By: #### A BG ####[facility] Mgqmnpmmqp9[address] [place], [place] [address]Dr. Ricardo Rocha LPM Normal [facility] Comment on above: Performed By: #### A BG ####[facility] Sufinzfzcl[address] [place], [place] [address]Dr. Ricardo Rocha MINUTE VOLUME Normal [facility] Comment on above: Performed By: #### A BG ####[facility] Gqvhlxscki9410[address] [place], [place] [address]Dr. Ricardo Rocha Oxygen (Bld) [Partial pressure] 66.4 mm[Hg] Critically low 80.0-100.0 [facility] Comment on above: Performed By: #### A BG ####[facility] Mqxojpkbqc235[address] [place], [place] [address]Dr. Ricardo Rocha Oxygen saturation in Blood 94.6 % Critically low 95.0-100.0 [facility] Comment on above: Performed By: #### A BG ####[facility] Dovzfwnobw15[address] [place] [address]Dr. Ricardo Rocha PCO2 29.4 mmHg Critically low 35.0-45.0 [facility] Comment on above: Performed By: #### A BG ####[facility] Uyfmwmoqmd4[address] [place] [address]Dr. Ricardo Rocha PEEP [facility] Comment on above: Performed By: #### A BG ####[facility] Tkohwcsswr6704 [place] [address]Dr. Ricardo Rocha pH (Bld) 7.436 [pH] Normal 7.350-7.450 [facility] Comment on above: Performed By: #### A BG ####[facility] Cspspiavir[address] [place] [address]Dr. Ricardo Rocha PIP [facility] Comment on above: Performed By: #### A BG ####[facility] Cdvcbfbygb8[address] [place], [place] [address]Dr. Ricardo Rocha PS [facility] Comment on above: Performed By: #### A BG ####[facility] Ymjsfbvvjb[address]60[address] [place], [place] [address]Dr. Ricardo Rocha PUNCTURE SITE LR [place] [facility] Comment on above: Performed By: #### A BG ####[facility] Gystdpywkc[address]26[address] [place], [place] [address]Dr. Ricardo Rocha RATE [facility] Comment on above: Performed By: #### A BG ####[facility] Echmcgqlry[address] [place] [address]Dr. Ricardo Rohca VENT MODE Normal [facility] Comment on above: Performed By: #### A BG ####[facility] Mfcgvgowxv63[address] [place], [place] [address]Dr. Ricardo Rocha VT [facility] Comment on above: Performed By: #### A BG ####[facility] Pqsqtyvcfz[address] [place], [place] [address]Dr. Ricardo Rocha CBC W MANUAL DIFFon 10-21-20 22 ATYPICAL LYMPH # Normal [facility] Comment on above: Performed By: #### C BCRED ####[facility] [address]pqte[address]ui56[address] [place] [address]Dr. Ricardo Rocha ATYPICAL LYMPH % Normal [facility] Comment on above: Performed By: #### C DWAINE ####[facility] Dtzyxwszhj5083 [place] [id number]. Ricardo Rocha BAND # 1.3 103/ul Critically high 0.0-0.3 [facility] Comment on above: Performed By: #### C DWAINE ####[facility] Aulnojsszw5923 [place] [address]Dr. Nanolan Rocha BAND % 12 % Critically high 0-5 [facility] Comment on above: Performed By: #### C DWAINE ####[facility] Jutkyhjzmb14[address] [place] [address]Dr. Ricardo Rocha BASOM # 0.00 103/ul Normal 0.00-0.10 [facility] Comment on above: Performed By: #### C DWAINE ####[facility] Hugorfnpaw[address] [place], [place] [address]Dr. Ricardo Rocha BASOM % 0.0 % Critically low 0.2-2.0 [facility] Comment on above: Performed By: #### C DWAINE ####[facility] Gwpmbiujyi58[address] [place] [address]Dr. Ricardo Rocha BLAST # Normal [facility] Comment on above: Performed By: #### C DWAINE ####[facility] Zewweocysa[address] [place] [address]Dr. Ricardo Rocha BLAST % Normal [facility] Comment on above: Performed By: #### C DWAINE ####[facility] Qlvnhbsqhc[address] [place], [place] [address]Dr. Ricardo Rocha CORRECTED WBC Normal 4.0-11.0 [facility] Comment on above: Performed By: #### C DWAINE ####[facility] Iugmmgmnoy38[address] [place], [place] [address]Dr. Ricardo Rocha EOS # 0.00 103/ul Normal 0.00-0.70 [facility] Comment on above: Performed By: #### C BCMAN ####[facility] Tjlhafpaid1126 [place] [id number]. Ricardo Rocha EOS% 0.0 % Critically low 0.9-7.0 [facility] Comment on above: Performed By: #### C BCMAN ####[facility] Xrbtalmvwy8684 [place] [phone]. Ricardo Rocha HCT 35.5 % Critically low 36.0-48.0 [facility] Comment on above: Performed By: #### C BCMAN ####[facility] Jtwhghxmlf0285 [place] [phone]. Ricardo Rocha HGB 11.4 g/dl Critically low 12.0-16.0 [facility] Comment on above: Performed By: #### C BCRED ####[facility] Jwyxyzeoht6656 [place] [phone]. Ricardo Rocha HYPERSEG NEUT 3+ Normal [facility] Comment on above: Performed By: #### C BCRED ####[facility] Rwazijfoew7157 [place] [phone]. Ricardo Rocha LYMPHM # 0.21 103/ul Critically low 1.20-3.80 [facility] Comment on above: Performed By: #### C BCRED ####[facility] Kmkycvdrta7[address] [place] [id number]. Ricardo Rocha LYMPHM% 2.0 % Critically low 20.5-60.0 [facility] Comment on above: Performed By: #### C BCRED ####[facility] Gctqzopgah3482 [place] [phone]. Ricardo Rocha MCH 25.3 pg Critically low 26.7-34.0 [facility] Comment on above: Performed By: #### C BCMAN ####[facility] Upsleukzzi2208 [place] [phone]. Ricardo Rocha MCHC 32.1 g/dl Normal 29.9-35.2 [facility] Comment on above: Performed By: #### C DWAINE ####[facility] Hnzeihbakm9185 [place] [phone]. Ricardo Rocha MCV 78.9 fL Critically low 81.0-99.0 [facility] Comment on above: Performed By: #### C DWAINE ####[facility] Rzqvvkjesl2603 [place] [phone]. Ricardo Rocha METAMYELOCYTE # Normal [facility] Comment on above: Performed By: #### C DWAINE ####[facility] Khllsmbztp5036 [place] [phone]. Ricardo Rocha METAMYELOCYTE % Normal [facility] Comment on above: Performed By: #### C DWAINE ####[facility] Qgykioasjj9[address] [place], [place] [address]Dr. Ricardo Rocha MONOM# 0.32 103/ul Normal 0.30-0.80 [facility] Comment on above: Performed By: #### C DWAINE ####[facility] Doxkpwkppj9[address] [place], [place] [address]Dr. Ricardo Rocha MONOM% 3.0 % Normal 1.7-12.0 [facility] Comment on above: Performed By: #### Esteban ISIDRO ####[facility] Gqpgwrsttm[address] [place], [place] [address]Dr. Ricardo Rocha MPV 10.9 fL Normal 9.5-13.5 [facility] Comment on above: Performed By: #### Esteban ISIDRO ####[facility] Qjdzmpiuvs4[address] [place], [place] [address]Dr. Ricardo Rocha MYELOCYTE # Normal [facility] Comment on above: Performed By: #### C DWAINE ####[facility] Kl[address]wq[address]134 [place] [address]Dr. Ricardo Rocha MYELOCYTE % Normal [facility] Comment on above: Performed By: #### C DWAINE ####[facility] Xdfqadmvey94[address] [place] [address]Dr. Ricardo Rocha NRBC Normal [facility] Comment on above: Performed By: #### C DWAINE ####[facility] E[address]ejx7064 [place], [place] [address]Lc. Ricardo Rocha PLT 180 103/ul Normal 150-450 [facility] Comment on above: Performed By: #### C DWAINE ####[facility] Lhhmubwqmo6[address] [place], [place] [address]Rn. Ricardo Rocha RBC 4.50 106/ul Normal 4.20-5.40 [facility] Comment on above: Performed By: #### C DWAINE ####[facility] Gsguwbiygi1457 [place] [phone]. Ricardo Rocha RDW 12.8 % Normal 11.0-15.0 [facility] Comment on above: Performed By: #### C DWAINE ####[facility] Nditideecl8843 [place] [phone]. Ricardo Rocha SEG # 8.71 103/ul Critically high 1.40-6.50 [facility] Comment on above: Performed By: #### C DWAINE ####[facility] Pkqtwhfpfk2961 [place] [phone]. Ricardo Rocha SEG % 83.0 % Critically high 43.0-75.0 [facility] Comment on above: Performed By: #### C DWAINE ####[facility] Pdfqdbihfa0872 [place] [phone]. Ricardo Rocha TOXIC GRANULATION 2+ Normal [facility] Comment on above: Performed By: #### C DWAINE ####[facility] Vwreeersom[address] [place], [place] [phone]. Ricardo Rocha WBC 10.5 103/ul Normal 4.0-11.0 [facility] Comment on above: Performed By: #### C DWAINE ####[facility] Mkergrlntg2580 [place] [phone]. Ricardo Rocha CULTURE BLOODon 06-10-2022 Microscopic examination of blood, culture Culture Observations: Positive blood culture. Pediatric bottle. Culture Observations: Please refer to for susceptibility testing. Isolate 1 Staphylococcus aureus Growth of Normal [facility] Comment on above: Performed By: #### B LDCX2 ####[facility] J[address]ujrrpma05[address] [place] [phone]. Ricardo Rocha LACTATE/LACTIC ACIDon 2021 Lactate [Moles/Vol] 1.9 mmol/L Normal 0.4-1.9 [facility] Comment on above: Performed By: #### L ACT ####[facility] Acgjsdtidc86[address] [place] [address]Dr. Ricardo Rocha LIPASEon 06-10-2022 Lipase [Catalytic activity/Vol] 164.0 U/L Normal 73.0-393.0 [facility] Comment on above: Performed By: #### H STROPN, LIPA, CMP, TSH ####[facility] Qvwwlcbbsz8635 [place] [address]Dr. Ricardo Rocha POINT OF CARE GLUCOSEon 05-22 Glucose [Mass/Vol] 583 mg/dL Critically high 74-106 [facility] Comment on above: Result Comment: Resu lt Not Confirmed Performed By: #### P OCGLUC ####[facility] Cdrkrftnjc6518 [place] [address]Dr. Ricardo Rocha PROF 14(COMP METB)on 022 Albumin [Mass/Vol] 3.0 g/dL Critically low 3.4-5.0 [facility] Comment on above: Performed By: #### H STROPN, LIPA, CMP, TSH ####[facility] Jvnizipcbp6656 [place] [address]Dr. Ricardo Rocha Albumin/Globulin [Mass ratio] 0.5 {ratio} Normal [facility] Comment on above: Performed By: #### H STROPN, LIPA, CMP, TSH ####[facility] Wyhdfuxhmc[address] [place] [address]Dr. Ricardo Rocha ALP [Catalytic activity/Vol] 116 U/L Normal 46-116 [facility] Comment on above: Performed By: #### H STROPN, LIPA, CMP, TSH ####[facility] Sgzrgquoom5537 [place] [address]Dr. Ricardo Rocha ALT [Catalytic activity/Vol] 15 U/L Normal 14-59 [facility] Comment on above: Performed By: #### H STROPN, LIPA, CMP, TSH ####[facility] Yrxxfdrssw0058 [place] [address]Dr. Ricardo Rocha Anion gap [Moles/Vol] 15.7 mmol/L Normal Th e [facility] Comment on above: Performed By: #### H STROPN, LIPA, CMP, TSH ####[facility] Nnijaeuxmk2758 [place] [address]Dr. Ricardo Rocha AST [Catalytic activity/Vol] 16 U/L Normal 15-37 [facility] Comment on above: Performed By: #### H STROPN, LIPA, CMP, TSH ####[facility] [address]llnepiu42[address] [place] [address]Dr. Ricardo Rocha Bilirubin [Mass/Vol] 0.5 mg/dL Normal 0.2-1.0 [facility] Comment on above: Performed By: #### H STROPN, LIPA, CMP, TSH ####[facility] Cxlfejtxkb[address] [place], [place] [address]Dr. Ricardo Rocha Calcium [Mass/Vol] 9.4 mg/dL Normal 8.5-10.[address] [facility] Comment on above: Performed By: #### H STROPN, LIPA, CMP, TSH ####[facility] Tjsimwmsgd1454 [place] [address]Dr. Ricardo Rocha Chloride [Moles/Vol] 95 mmol/L Critically low 98-107 [facility] Comment on above: Performed By: #### H STROPN, LIPA, CMP, TSH ####[facility] Ssaaawsjdd7945 [place] [address]Dr. Ricardo Rocha CO2 [Moles/Vol] 22.1 mmol/L Normal 21.0-32.0 [facility] Comment on above: Performed By: #### H STROPN, LIPA, CMP, TSH ####[facility] Ngllkhjzah26[address] [place] [address]Dr. Ricardo Rocha Creatinine [Mass/Vol] 2.23 mg/dL Critically high 0.55-1.02 [facility] Comment on above: Performed By: #### H STROPN, LIPA, CMP, TSH ####[facility] Lhnjkxxzgx4[address] [place] [address]Dr. Ricardo Rocha EGFR-AF BELIZEAN 27 mL/min/1.73m2 Critically low >=60 [facility] Comment on above: Performed By: #### H STROPN, LIPA, CMP, TSH ####[facility] Odnffsypui38[address] [place] [address]Dr. Ricardo Rocha EGFR-NON AF BELIZEAN 22 mL/min/1.73m2 Critically low >=60 [facility] Comment on above: Performed By: #### H STROPN, LIPA, CMP, TSH ####[facility] Lqcdavssym6474 [place] [address]Dr. Ricardo Rocha Globulin (S) [Mass/Vol] 6.5 g/dL Normal [facility] Comment on above: Performed By: #### H STROPN, LIPA, CMP, TSH ####[facility] Egqrjjitpy7121 [place] [address]Dr. Ricardo Rocha Glucose [Mass/Vol] 593 mg/dL Critically high 74-106 [facility] Comment on above: Performed By: #### H STROPN, LIPA, CMP, TSH ####[facility] Bow[address]csj[address] [place] [address]Dr. Ricarod Rocha Potassium [Moles/Vol] 3.8 mmol/L Normal 3.5-5.1 [facility] Comment on above: Performed By: #### H STROPN, LIPA, CMP, TSH ####[facility] Xtymirxjsk3625 [place] [address]Dr. Ricardo Rocha Protein [Mass/Vol] 9.5 g/dL Critically high 6.4-8.2 [facility] Comment on above: Performed By: #### H STROPN, LIPA, CMP, TSH ####[facility] Pmoxkteoof4944 [place] [address]Dr. Ricardo Rocha Sodium [Moles/Vol] 129 mmol/L Critically low 136-145 [facility] Comment on above: Performed By: #### H STROPN, LIPA, CMP, TSH ####[facility] Uzhbovpqsr4404 [place] [address]Dr. Ricardo Rocha Urea nitrogen [Mass/Vol] 40.0 mg/dL Critically high 7.0-18.0 [facility] Comment on above: Performed By: #### H STROPN, LIPA, CMP, TSH ####[facility] Ieexmqxxzo[address] [place], [place] [address]Dr. Ricardo Rocha Urea nitrogen/Creatinine [Mass ratio] 17.9 mg/mg Normal [facility] Comment on above: Performed By: #### H STROPN, LIPA, CMP, TSH ####[facility] Eihpgqbbdo[address] [place], [place] [address]Dr. Ricardo Rocha PROTIMEon 06-10-2022 INR Coag (PPP) [Relative time] 1.00 {INR} Normal [facility] Comment on above: Performed By: #### P TT, PT ####[facility] Krbktftucj[address] [place], [place] [address]Dr. Ricardo Rocha INR GUIDELINES SEE BELOW Normal [facility] Comment on above: Result Comment: AMBROSIO RED INR: 2.0 - 3.0 CONDITIONS NOT LISTED BELOW 2.5 - 3.5 FOR PROSTHETIC HEART VALVE REPLACEMENT 2.5 - 3.5 RECURRENT THROMBOSIS Performed By: #### P TT, PT ####[facility] [address]pokakctoq[address] [place], [place] [address]Dr. Ricardo Rocha PT Coag (PPP) [Time] 10.8 s Normal 9.0-11.6 [facility] Comment on above: Performed By: #### P TT, PT ####[facility] [address]bivljmful[address] [place], [place] [address]Dr. Ricardo Rocha PTTon 06-10-2022 aPTT Coag (Bld) [Time] 31.7 s Normal 22.3-36.2 [facility] Comment on above: Performed By: #### P TT, PT ####[facility] Gzoyhyboeo[address] [place], [place] [address]Dr. Ricardo Rocha TROPONIN, HIGH SENSITIVITYon 06-10-2022 HSTROP 30.9 pg/mL Normal 4.0-51.3 [facility] Comment on above: Result Comment: CUT- OFF POINTS HAVE BEEN ESTABLISHED BASED ON THE FOURTH UNIVERSAL DEFINITIONS OF MYOCARDIALINFARCTION. THE UPPER REFERENCE LIMIT (URL) OF TROPONIN, DEFINED THE 99TH PERCENTILE OFcTnI DISTRIBUTION IN A REFERENCE POPULATION, HAS BEEN CONFIRMED THE DECISION THRESHOLDFOR IN DIAGNOSIS. Performed By: #### H STROPN, LIPA, CMP, TSH ####[facility] [address]jgdiflgon87[address] [place] [address]Dr. Ricardo Rocha TSHon 06-10-2022 TSH 0.147 uIU/mL Critically low 0.358-3.740 [facility] Comment on above: Performed By: #### H STROPN, LIPA, CMP, TSH ####[facility] [address] [place] [address]Dr. Ricardo Rocha XR FOOT GURJIT MIN 3 VIEWSon XR FOOT GURJIT MIN 3 VIEWS Normal [facility] XR HAND RT MIN 3Von 06-02-20 XR HAND RT MIN 3V Normal [facility] CULTURE WOUNDon 05-15-2022 CULTURE WOUND Normal [facility] Comment on above: Performed By: #### W OUNDCX ####[facility] [address]ot[address] [place], [place] [address]Dr. Ricardo Rocha CBC AUTO DIFFon 2022 BASO # 0.0 103/ul Normal 0.0-0.1 [facility] Comment on above: Performed By: #### C BC ####[facility] [address] [place] [address]Dr. Ricardo Rocha Basophils/100 WBC (Bld) 0.7 % Normal 0.2-2.0 [facility] Comment on above: Performed By: #### C BC ####[facility] [address] [place], [place] [address]Dr. Ricardo Rocha EO # 0.1 103/ul Normal 0.0-0.7 [facility] Comment on above: Performed By: #### C BC ####[facility] [address] [place], [place] [address]Dr. Ricardo Rocha Eosinophils/100 WBC (Bld) 2.1 % Normal 0.9-7.0 [facility] Comment on above: Performed By: #### C BC ####[facility] [address] [place] [address]Dr. Ricardo Rocha Erythrocyte distribution width (RBC) [Ratio] 13.2 % Normal 11.0-15.0 [facility] Comment on above: Performed By: #### C BC ####[facility] [address]ror[address] [place] [address]Dr. Ricardo Rocha Hematocrit (Bld) [Volume fraction] 36.6 % Normal 36.0-48.0 [facility] Comment on above: Performed By: #### C BC ####[facility] [address] [place] [address]Dr. Ricardo Rocha Hemoglobin (Bld) [Mass/Vol] 11.9 g/dL Critically low 12.0-16.0 [facility] Comment on above: Performed By: #### C BC ####[facility] [address] [place] [address]Dr. Ricardo Rocha IG # 0.03 10e3/ul Normal 0.00-0.03 [facility] Comment on above: Performed By: #### C BC ####[facility] [address] [place] [address]Dr. Ricardo Rocha IG % 0.5 % Normal 0.0-0.5 [facility] Comment on above: Performed By: #### C BC ####[facility] [address] [place] [address]Dr. Ricardo Rocha LYMPH # 2.1 103/ul Normal 1.2-3.8 [facility] Comment on above: Performed By: #### C BC ####[facility] [address] [place] [address]Dr. Ricardo Rocha Lymphocytes/100 WBC (Bld) 33.8 % Normal 20.5-60.0 [facility] Comment on above: Performed By: #### C BC ####[facility] [address] [place] [address]Dr. Ricardo Aj MANUAL DIFF REQ NO Normal [facility] Comment on above: Performed By: #### C BC ####[facility] Vdrkxqhqcv[address] [place] [address]Dr. Ricardo Rocha MCH (RBC) [Entitic mass] 25.7 pg Critically low 26.7-34.0 [facility] Comment on above: Performed By: #### C BC ####[facility] [address] [place] [address]Dr. Ricardo Aj MCHC (RBC) [Mass/Vol] 32.5 g/dL Normal 29.9-35.2 [facility] Comment on above: Performed By: #### C BC ####[facility] [address] [place] [address]Dr. Ricardo Aj MCV (RBC) [Entitic vol] 79.0 fL Critically low 81.0-99.0 [facility] Comment on above: Performed By: #### C BC ####[facility] [address] [place], [place] [address]Dr. Ricardo Aj MONO # 0.4 103/ul Normal 0.3-0.8 [facility] Comment on above: Performed By: #### C BC ####[facility] [address] [place], [place] [address]Dr. Nanomarcial Rocha Monocytes/100 WBC (Bld) 6.2 % Normal 1.7-12.0 [facility] Comment on above: Performed By: #### C BC ####[facility] [address] [place] [address]Dr. Ricardo Aj NEUT # 3.5 103/ul Normal 1.4-6.5 [facility] Comment on above: Performed By: #### C BC ####[facility] [address] [place], [place] [address]Dr. Ricardo Aj Neutrophils/100 WBC (Bld) 56.7 % Normal 43.0-75.0 [facility] Comment on above: Performed By: #### C BC ####[facility] [address] [place] [address]Dr. Nanomarcial Aj Platelet mean volume (Bld) [Entitic vol] 10.9 fL Normal 9.5-13.5 [facility] Comment on above: Performed By: #### C BC ####[facility] [address] [place] [address]Dr. Ricardo Rocha PLT 241 103/ul Normal 150-450 [facility] Comment on above: Performed By: #### C BC ####[facility] [address] [place], [place] [address]Dr. Ricardo Rocha RBC 4.63 106/ul Normal 4.20-5.40 [facility] Comment on above: Performed By: #### C BC ####[facility] [address] [place], [place] [address]Dr. Ricardo Rocha WBC 6.1 103/ul Normal 4.0-11.0 [facility] Comment on above: Performed By: #### C BC ####[facility] [address] [place], [place] [address]Dr. Ricardo Rocha PROF CHEM 8 (BAS METB)on Anion gap [Moles/Vol] 11.8 mmol/L Normal [facility] Comment on above: Performed By: #### B MP ####[facility] [address] [place], [place] [address]Dr. Ricardo Rocha Calcium [Mass/Vol] 9.2 mg/dL Normal 8.5-10.[address] [facility] Comment on above: Performed By: #### B MP ####[facility] [address] [place], [place] [address]Dr. Ricardo Rocha Chloride [Moles/Vol] 99 mmol/L Normal 98-107 [facility] Comment on above: Performed By: #### B MP ####[facility] [address] [place], [place] [address]Dr. Ricardo Rocha CO2 [Moles/Vol] 24.7 mmol/L Normal 21.0-32.0 [facility] Comment on above: Performed By: #### B MP ####[facility] [address] [place] [id number]. Ricardo Rocha Creatinine [Mass/Vol] 1.48 mg/dL Critically high 0.55-1.02 [facility] Comment on above: Performed By: #### B MP ####[facility] [address] [place] [id number]. Ricardo Rocha EGFR-AF BELIZEAN 43 mL/min/1.73m2 Critically low >=60 [facility] Comment on above: Performed By: #### B MP ####[facility] [address] [place] [address]Dr. Ricardo Rocha EGFR-NON AF BELIZEAN 36 mL/min/1.73m2 Critically low >=60 [facility] Comment on above: Performed By: #### B MP ####[facility] [address] [place] [id number]. Ricardo Rocha Glucose [Mass/Vol] 431 mg/dL Critically high 74-106 T [facility] Comment on above: Performed By: #### B MP ####[facility] [address] [place] [address]Dr. Ricardo Rocha Potassium [Moles/Vol] 4.5 mmol/L Normal 3.5-5.1 [facility] Comment on above: Performed By: #### B MP ####[facility] [address] [place] [id number]. Ricardo Rocha Sodium [Moles/Vol] 131 mmol/L Critically low 136-145 [facility] Comment on above: Performed By: #### B MP ####[facility] [address] [place] [id number]. Ricardo Aj Urea nitrogen [Mass/Vol] 23.0 mg/dL Critically high 7.0-18.0 [facility] Comment on above: Performed By: #### B MP ####[facility] [address] [place] [id number]. Ricardo Rocha Urea nitrogen/Creatinine [Mass ratio] 15.5 mg/mg Normal [facility] Comment on above: Performed By: #### B MP ####[facility] [address] [place], [place] [address]Sb. Ricardo Rocha XR TOES GURJIT MIN 2 Von 2021 XR TOES GURJIT MIN 2 V Normal [facility] ALLIED HEALTHon 01-21-2021 ALLIED HEALTH HNO ID: [id number] Author: RT Parveen(R) Service: ? Author Type: Band Master Type: Allied Health Filed: 01/20/2021 10:30 PM [...] January 20, 2021 10:29 PM Normal [facility] Basic Metabolic Panlon 01-21 Anion gap [Moles/Vol] 7 mmol/L Low 9-18 [facility] Calcium [Mass/Vol] 8.8 mg/dL Normal 8.5-10.2 [facility] ospital Chloride [Moles/Vol] 99 mmol/L Normal 97-105 [facility] CO2 [Moles/Vol] 25 mmol/L Normal 22-30 [facility] Creatinine [Mass/Vol] 1.51 mg/dL High 0.58-0.96 [facility] eGFR- Amer. 42 Normal [facility] ospital eGFR-All Other Races 35 . Normal [facility] Comment on above: Result Comment: [...] ospital Comment on above: Result Comment: The [place] Diabetes Association (ADA) provides guidance for cutoff [...] Standards of Medical Care in Diabetes 2016, [place] [employer]. Diabetes Care. 2016.39(Suppl 1). Potassium [Moles/Vol] 4.7 mmol/L Normal 3.7-5.1 [facility] Sodium [Moles/Vol] 131 mmol/L Low 136-144 [facility] ospital Urea nitrogen [Mass/Vol] 42 mg/dL High 7-21 [facility] CBCon 01-21-2021 Absolute nRBC <0.01 Normal <0.01 [facility] al Erythrocyte distribution width (RBC) [Ratio] 13.1 % Normal 11.5-15.0 [facility] Hematocrit (Bld) [Volume fraction] 30.0 % Low 36.0-46.0 [facility] Hemoglobin (Bld) [Mass/Vol] 9.5 g/dL Low 11.5-15.5 [facility] MCH 24.4 pG Low 26.0-34.0 [facility] MCHC (RBC) [Mass/Vol] 31.7 g/dL Normal 30.5-36.0 [facility] MCV (RBC) [Entitic vol] 77.1 fL Low 80.0-100.0 [facility] Platelet mean volume (Bld) [Entitic vol] 11.1 fL Normal 9.0-12.7 [facility] l Platelets (Bld) [#/Vol] 358 10*3/uL Normal 150-400 [facility] RBC (Bld) [#/Vol] 3.89 10*6/uL Low 3.90-5.20 [facility] WBC (Bld) [#/Vol] 9.64 10*3/uL Normal 3.70-11.00 [facility] CNDSon 01-21-2021 CNDS HNO ID: [id number] Author: Inna Hansen DO Service: Hospital Medicine [...] Team: Attending Provider: Inna Hansen DO Physician Foam Fabricator: Garrett Simon PA-C Consulting: Taurus Ballard MD [...] PCP: referred to a new PCP in [place]. Future Appointments Date Time Provider Department Center 01/29/2021 11:40 AM Taurus Ballard MD [facility] The patient's risk for 30-day readmission is determined using the following contributing factors: Pt variables contributing to increased readmission risk: 42 Most Recent (more content not included)... Normal [facility] MRI KIDNEY WO/W IVCONon 06-0 [...] included: axial precontrast T1 weighted in- and mtm-ie-fnysj, axial and coronal HASTE, axial DWI with [...] be communicated with the ordering provider via [employer] staff message or phone message by [facility] [employer] within 2 business days of report finalization. Algorithms for management of incidental imaging findings can be found on the [facility] Intranet Sharepoint site at: [email or web address] [email or web address] Professor Of Political Science: GUILLE Transcribe Date/Time: Jan 21 2021 8:17A Dictated by : MALLORY AHN MD This examination was interpreted and the report reviewed and electronically signed by: MALLORY AHN MD on Jan 21 2021 8:49AM EST [id number] [id number] Invalid Interpretation Code [facility] Basic Metabolic Panlon 01-20 Anion gap [Moles/Vol] 11 mmol/L Normal 9-18 [facility] Calcium [Mass/Vol] 8.7 mg/dL Normal 8.5-10.2 [facility] Chloride [Moles/Vol] 97 mmol/L Normal 97-105 [facility] CO2 [Moles/Vol] 24 mmol/L Normal 22-30 [facility] Creatinine [Mass/Vol] 1.46 mg/dL High 0.58-0.96 [facility] eGFR- Amer. 44 Normal [facility] ospital eGFR-All Other Races 36 . Normal [facility] Comment on above: Result Comment: [...] GFR. Glucose [Mass/Vol] 149 mg/dL High 74-99 [facility] Comment on above: Result Comment: The [place] Diabetes Association (ADA) provides guidance for cutoff [...] Standards of Medical Care in Diabetes 2016, [place] [employer]. Diabetes Care. 2016.39(Suppl 1). Potassium [Moles/Vol] 3.9 mmol/L Normal 3.7-5.1 [facility] Sodium [Moles/Vol] 132 mmol/L Low 136-144 [facility] Urea nitrogen [Mass/Vol] 53 mg/dL High 7-21 [facility] CBCon 01-20-2021 Absolute nRBC <0.01 Normal <0.01 [facility] E[facility]th[facility] distribution width (RBC) [Ratio] 12.8 % Normal 11.5-15.0 [facility] Hematocrit (Bld) [Volume fraction] 27.7 % Low 36.0-46.0 [facility] Hemoglobin (Bld) [Mass/Vol] 8.9 g/dL Low 11.5-15.5 [facility] MCH 24.5 pG Low 26.0-34.0 [facility] MCHC (RBC) [Mass/Vol] 32.1 g/dL Normal 30.5-36.0 [facility] MCV (RBC) [Entitic vol] 76.3 fL Low 80.0-100.0 [facility] Platelet mean volume (Bld) [Entitic vol] 11.1 fL Normal 9.0-12.7 [facility] Platelets (Bld) [#/Vol] 321 10*3/uL Normal 150-400 [facility] RBC (Bld) [#/Vol] 3.63 10*6/uL Low 3.90-5.20 [facility] WBC (Bld) [#/Vol] 11.05 10*3/uL High 3.70-11.00 [facility] CONSULT PROGon 01-20-2021 CONSULT PROG HNO ID: [id number] Author: Rajendra Cruz MD Service: Nephrology Author Type: Physician Type: Consult Progress Note Filed: 01/20/2021 1:44 PM Note Text: [facility] NEPHROLOGY CONSULT PROGRESS NOTE SERVICE DATE: [...] DATE: January 20, 2021 1:43 PM PHONE: [phone] FOR AFTER HOUR CONCERNS BETWEEN 7PM - 7AM CONTACT ON-CALL NEPHROLOGY STAFF Normal [facility] THERAPY NTon 01-20-2021 THERAPY NT HNO ID: [id number] Author: Afia Radford, PT Service: Physical Therapy Author Type: Physical Therapist Type: Therapy (PT/OT/Speech/Resp) Filed: 01/20/2021 3:32 PM Note Text: Physical Therapy Treatment SERVICE DATE: 01/20/2021 SERVICE TIME: 1330 to 1353 ROOM: [place] [address] Recommended Discharge Disposition: Home PT Recommended Discharge [...] 0 Tub/Shower Type: tub shower Laundry: basement, [id number] Equipment Owned: Cane;Standard Walker Prior Functional Level: [...] General Deviations/Observations: Loss of Balance;Lateral sway increased -HLM: 7: [...] Diagnosis: Reduced mobility-other Interventions Provided: Gait Training (11896);Therapeutic Exercise (30139) Therapeutic Exercise (05172) Treatment Minutes: 8 Pt performed in supine position: AP, QS, GS x 10 B LE, pt instructed to do every hour while awake on their own. 7 days a week, HS, hip ABD, SAQ, SLR 10-20 reps/ 2-3x/day/ 7 days/week Gait Training (54977) Treatment Minutes: 15 $ Gait Training (29353) Billed Units: 1 unit Training AND education [...] TIME: (more content not included)... Normal [facility] THERAPY NT HNO ID: [id number] Author: Heidy Wright, OT/L Service: Occupational Therapy Author Type: Occupational Therapist Type: Therapy (PT/OT/Speech/Resp) Filed: 01/20/2021 12:15 PM Note Text: Occupational Therapy Treatment SERVICE DATE: 01/20/2021 SERVICE TIME: 1155 to 1205 ROOM: [place] [address] Recommended Discharge Disposition: Home OT Recommended Discharge [...] 0 Tub/Shower Type: tub shower Laundry: basement, fjkkelse-vr-hhy Equipment Owned: Cane;Standard Walker Prior Functional Level: [...] and signs-other Interventions Provided: Self Mcfp Management (35853) Self Mcfp Management (33870) Treatment Minutes: 10 $ Self Mcfp Management (53614) Billed Units: 1 unit Training AND education provided in: Benefits of in (more content not included)... Normal [facility] THERAPY NT HNO ID: [id number] Author: Heidy Wright OT/Broderick Service: Occupational Therapy Author Type: Occupational Therapist Type: Therapy (PT/OT/Speech/Resp) Filed: 01/20/2021 8:24 AM Note Text: OCCUPATIONAL THERAPY MISSED VISIT SERVICE DATE: 01/20/2021 SERVICE TIME: 0820 to 0820 ROOM: [place] [address] Attempted Treatment. Patient not seen due to Declined. Pt states, It's too early when OT attempted to work with her. Will re-attempt as schedule permits. SIGNATURE: Heidy Wright OT/Broderick PATIENT NAME: Aislinn Wheeler DATE: January 20, 2021 TIME: 8:24 AM [facility] Basic Metabolic Panlon 01-19 Anion gap [Moles/Vol] 11 mmol/L Normal 9-18 [facility] Calcium [Mass/Vol] 8.5 mg/dL Normal 8.5-10.2 [facility] ospital Chloride [Moles/Vol] 93 mmol/L Low 97-105 [facility] CO2 [Moles/Vol] 24 mmol/L Normal 22-30 [facility] Creatinine [Mass/Vol] 1.92 mg/dL High 0.58-0.96 [facility] eGFR- Amer. 32 Normal [facility] ospital eGFR-All Other Races 26 . Normal [facility] Comment on above: Result Comment: [...] GFR. Glucose [Mass/Vol] 268 mg/dL High 74-99 [facility] Comment on above: Result Comment: The [place] Diabetes Association (ADA) provides guidance for cutoff [...] Standards of Medical Care in Diabetes 2016, [place] [employer]. Diabetes Care. 2016.39(Suppl 1). Potassium [Moles/Vol] 4.2 mmol/L Normal 3.7-5.1 [facility] Sodium [Moles/Vol] 128 mmol/L Low 136-144 [facility] Urea nitrogen [Mass/Vol] 77 mg/dL High 7-21 [facility] Anion gap [Moles/Vol] 11 mmol/L Normal 9-18 [facility] Calcium [Mass/Vol] 8.3 mg/dL Low 8.5-10.2 [facility] Chloride [Moles/Vol] 88 mmol/L Low 97-105 [facility] CO2 [Moles/Vol] 23 mmol/L Normal 22-30 [facility] Creatinine [Mass/Vol] 1.93 mg/dL High 0.58-0.96 [facility] eGFR- Amer. 32 Normal [facility] eGFR-All Other Races 26 . Normal [facility] Comment on above: Result Comment: [...] ospital Comment on above: Result Comment: The [place] Diabetes Association (ADA) provides guidance for cutoff [...] Standards of Medical Care in Diabetes 2016, [place] [employer]. Diabetes Care. 2016.39(Suppl 1). Potassium [Moles/Vol] 3.8 mmol/L Normal 3.7-5.1 [facility] Sodium [Moles/Vol] 122 mmol/L Low 136-144 [facility] ospital Urea nitrogen [Mass/Vol] 82 mg/dL High 7-21 [facility] CBCon 01-19-2021 Absolute nRBC <0.01 Normal <0.01 [facility] al Erythrocyte distribution width (RBC) [Ratio] 12.8 % Normal 11.5-15.0 [facility] Hematocrit (Bld) [Volume fraction] 27.5 % Low 36.0-46.0 [facility] Hemoglobin (Bld) [Mass/Vol] 9.1 g/dL Low 11.5-15.5 [facility] MCH 24.9 pG Low 26.0-34.0 [facility] MCHC (RBC) [Mass/Vol] 33.1 g/dL Normal 30.5-36.0 [facility] MCV (RBC) [Entitic vol] 75.1 fL Low 80.0-100.0 [facility] Platelet mean volume (Bld) [Entitic vol] 11.2 fL Normal 9.0-12.7 [facility] l Platelets (Bld) [#/Vol] 297 10*3/uL Normal 150-400 [facility] RBC (Bld) [#/Vol] 3.66 10*6/uL Low 3.90-5.20 [facility] WBC (Bld) [#/Vol] 12.14 10*3/uL High 3.70-11.00 [facility] CONSULT PROGon 01-19-2021 CONSULT PROG HNO ID: [id number] Author: Rajendra Cruz MD Service: Nephrology Author Type: Physician Type: Consult Progress Note Filed: 01/19/2021 2:40 PM Note Text: [facility] NEPHROLOGY CONSULT PROGRESS NOTE SERVICE DATE: [...] DATE: January 19, 2021 2:27 PM PHONE: [phone] FOR AFTER HOUR CONCERNS BETWEEN 7PM - 7AM CONTACT ON-CALL NEPHROLOGY STAFF [facility] 01-19-2021 NUTRITION HNO ID: [id number] Author: Michelle Louis RD Service: Nutrition Therapy [...] history;Intake records;Patient/family self-report;Weight loss;Nausea;Vomiting Estimated kilocalorie needs: 5900-2166 Calorie Calculation Method: 30-35 kcals/kg Estimated protein needs (grams): 66-88 Grams protein determined by: 1.5 - 2.0 g/kg Care Plan: Continue current diet Supplements: Mightteresa Shake No Sugar Added (strawberry banana) Vitamins [...] January 19, 2021 TIME: 10:59 AM PAGER: [id number] I have reviewed the nutritional assessment note documented by the wedding planning internship and I personally participated in the miller components. I have discussed the case and nutritional management of the patient's care. Michelle Louis MS,RD,LD,[facility] THERAPY NTon 01-19-2021 THERAPY NT HNO ID: [id number] Author: Afia Radford, PT Service: Physical Therapy Author Type: Physical Therapist Type: Therapy (PT/OT/Speech/Resp) Filed: 01/19/2021 2:57 PM Note Text: Physical Therapy Evaluation SERVICE DATE: 01/19/2021 SERVICE TIME: 1307 to 1331 ROOM: [place] [address] Recommended Discharge Disposition: Home PT Anticipated Discharge [...] 0 Tub/Shower Type: tub shower Laundry: basement, [id number]-[id number] Equipment Owned: Cane;Standard Walker Prior Functional Level: [...] Diagnosis: Reduced mobility-other Interventions Provided: Evaluation;Therapeutic Exercise (03532);Gait Training (40551) $ Evaluation-Low (42423) Billed Units: 1 unit Therapeutic Exercise (04808) Treatment Minutes: 1 Patient performed in seated position: Marching, AP/HR, hip ABD, LAQ x10 B LE- instructions written on white board for pt to complete on her own. Gait Training (69672) Treatment Minutes: 8 $ Gait Training (76288) Billed Units: 1 unit Training AND education [...] present during visit: Aleksander Syed, DELFIN Normal [facility] Basic Metabolic Panlon 01-18 Anion gap [Moles/Vol] 13 mmol/L Normal 9-18 [facility] Calcium [Mass/Vol] 8.8 mg/dL Normal 8.5-10.2 [facility] ospital Chloride [Moles/Vol] 88 mmol/L Low 97-105 [facility] CO2 [Moles/Vol] 22 mmol/L Normal 22-30 [facility] Creatinine [Mass/Vol] 2.21 mg/dL High 0.58-0.96 [facility] eGFR- Amer. 27 Normal [facility] ospital eGFR-All Other Races 23 . Normal [facility] Comment on above: Result Comment: [...] ospital Comment on above: Result Comment: The [place] Diabetes Association (ADA) provides guidance for cutoff [...] Standards of Medical Care in Diabetes 2016, [place] [employer]. Diabetes Care. 2016.39(Suppl 1). Potassium [Moles/Vol] 3.7 mmol/L Normal 3.7-5.1 [facility] Sodium [Moles/Vol] 123 mmol/L Low 136-144 [facility] Urea nitrogen [Mass/Vol] 93 mg/dL High 7-21 [facility] Anion gap [Moles/Vol] 16 mmol/L Normal 9-18 [facility] Calcium [Mass/Vol] 9.0 mg/dL Normal 8.5-10.2 [facility] Chloride [Moles/Vol] 93 mmol/L Low 97-105 [facility] CO2 [Moles/Vol] 21 mmol/L Low 22-30 [facility] Creatinine [Mass/Vol] 2.59 mg/dL High 0.58-0.96 [facility] eGFR- Amer. 23 Normal [facility] eGFR-All Other Races 19 . Normal [facility] Comment on above: Result Comment: [...] GFR. Glucose [Mass/Vol] 130 mg/dL High 74-99 [facility] Comment on above: Result Comment: The [place] Diabetes Association (ADA) provides guidance for cutoff [...] Standards of Medical Care in Diabetes 2016, [place] [employer]. Diabetes Care. 2016.39(Suppl 1). Potassium [Moles/Vol] 4.7 mmol/L Normal 3.7-5.1 [facility] Sodium [Moles/Vol] 130 mmol/L Low 136-144 [facility] Urea nitrogen [Mass/Vol] 97 mg/dL High 7-21 [facility] CASE MGT INIT [facility] 2020 [facility] ID: [id number] Author: Nicol Landin RN Service: ? 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 Stated Goals: To have reduction [...] scheduled Advance Directive: Current Advance Directive: None Road Design Draftsperson Attempted to Assist with AD Completion: Yes [...] and plan for meeting these needs: Patient's dkubwdif-zo-lzc and son live close by and come over to help often Patient's perception of need for this admission: necessary Medication Adherance I am convinced of the importance of my prescription medication: 0 - Agree Completely I worry that my prescription medication will do more harm than good to me : 0 - Disagree Completely I feel financially burdened by my [id number]-slcpdr expenses for my prescription medication:: 0 - Disagree Completely Risk Score: 0 Patient is categorized as: Low risk < 2 Are you interested in bedside delivery of your medications? Yes Is Patient Psychosocially Complex?: Yes, refer to Social Work ASSESSMENT AND PLAN: Medical Needs: Medical Needs: Two or more chronic diseases Psychosocial Needs: Psychosocial Needs: None FREEDOM OF CHOICE EXPLAINED: Weed of Choice Given: No Reason Not Given: [...] and hospitalized about 1 month ago in [place] but no resolution of her symptoms. She [...] 18, 2021 TIME: 10:51 AM PAGER/CONTACT #: [phone] Normal [facility] CBCon 01-18-2021 Absolute nRBC <0.01 Normal <0.01 [facility] al Erythrocyte distribution width (RBC) [Ratio] 13.0 % Normal 11.5-15.0 [facility] Hematocrit (Bld) [Volume fraction] 31.2 % Low 36.0-46.0 [facility] Hemoglobin (Bld) [Mass/Vol] 9.9 g/dL Low 11.5-15.5 [facility] MCH 24.4 pG Low 26.0-34.0 [facility] MCHC (RBC) [Mass/Vol] 31.7 g/dL Normal 30.5-36.0 [facility] MCV (RBC) [Entitic vol] 77.0 fL Low 80.0-100.0 [facility] Platelet mean volume (Bld) [Entitic vol] 10.8 fL Normal 9.0-12.7 [facility] l Platelets (Bld) [#/Vol] 310 10*3/uL Normal 150-400 [facility] RBC (Bld) [#/Vol] 4.05 10*6/uL Normal 3.90-5.20 [facility] WBC (Bld) [#/Vol] 17.03 10*3/uL High 3.70-11.00 [facility] CONSULTon 01-18-2021 CONSULT HNO ID: [id number] Author: Annie Trinidad DO Service: Hypertension AND [...] a no-show appointment to urology at [facility]. She also reports that she [...] n (more content not included)... Normal [facility] CONSULT HNO ID: [id number] Author: Taurus Ballard MD Service: Urology Author Type: Physician Type: Consults Filed: 01/18/2021 8:27 AM Note Text: [facility] UROLOGY CONSULT [...] pa (more content not included)... Normal [facility] Creatinine,Urine,Ranon 01-18 Creatinine,Urine,Ran 33.5 mg/dL Normal 20-300 [facility] Comment on above: Performed By: #### U OSIEL, UOSM, UCRR ####[facility] [address] [place], [place] [phone] Magnesiumon 01-18-2021 Magnesium [Mass/Vol] 1.9 mg/dL Normal 1.7-2.3 [facility] NURSING PROGon 01-18-2021 NURSING PROG HNO ID: [id number] Author: Barbara Spicer RN Service: ? Author Type: Registered Nurse Type: Nursing Progress Note Filed: 01/18/2021 10:28 AM Note Text: Nursing Progress Note Patient Name: Aislinn Wheeler Patient Location: / Daily Note:pt report given to pete LE. Pt VSS. Pt belongings packed. This note was completed by: Barbara Spicer Normal [facility] Osmolalityon 01-18-2021 Osmolality [Osmolality] 298 mosm/kg Normal 275-300 [facility] Comment on above: Performed By: #### O SM ####[facility] [place], [place] [phone] Osmolality, Urineon 01-19-20 21 Osmolality, Urine 273 mOsm/kg Normal 50-1200 [facility] ospital Comment on above: Performed By: #### U OSIEL, UOSM, UCRR ####[facility] [place], [place] [phone] Sepsis Lactateon 01-18-2021 Sepsis Lactate 0.9 mmol/L Normal <2.1 [facility] Sodium,Urine,Randomon 2020 Sodium (U) [Moles/Vol] 32 mmol/L Normal 14-216 [facility] Comment on above: Performed By: #### U OSIEL, UOSM, UCRR ####[facility] [place], [place] [phone] THERAPY NTon 01-18-2021 THERAPY NT HNO ID: [id number] Author: Wendy Montes De Oca OT/Broderick Service: Occupational Therapy Author Type: Occupational Therapist Type: Therapy (PT/OT/Speech/Resp) Filed: 01/18/2021 1:10 PM Note Text: Occupational Therapy Evaluation SERVICE DATE: 01/18/2021 SERVICE TIME: 08 to 0915 ROOM: [place] [address] Recommended Discharge Disposition: Home OT Recommended Discharge [...] 0 Tub/Shower Type: tub shower Laundry: basement, [id number] Equipment Owned: Cane;Standard Walker CURRENT FUNCTIONAL STATUS: [...] and signs-other Interventions Provided: Evaluation $ Evaluation-Moderate (81666) Billed Units: 1 unit Training and education [...] DATE: January 18, 2021 TIME: 1:06 PM [facility] Urine Cultureon 01-18-2021 Bacteria identified Cx Nom (U) Sp. Request/Comment: - Specimen received in preservative Culture Result - No growth (<1,000 CFU/ml) [facility] Comment on above: Performed By: #### U RCUL ####[facility] [address] [place], [place] [phone] Blood Cultureon 01-17-2021 Bacteria identified Cx Nom (Bld) Culture Result - No growth 5 days Normal [facility] Comment on above: Performed By: #### B LCUL ####[facility] [place], [place] [phone] C-Reactive Proteinon 021 C-Reactive Protein 32.4 mg/dL High <0.9 [facility] Comment on above: Performed By: #### W SR ####[facility] [address] [place], [place] [phone] CBC and Differentialon 01-17 Abs Baso <0.03 Normal <0.11 [facility] Abs Eosin <0.03 Normal <0.46 [facility] Abs Upson 0.73 k/uL Normal <0.87 [facility] Abs Neut 14.70 k/uL High 1.45-7.50 [facility] Absolute nRBC <0.01 Normal <0.01 [facility] Bas[facility]/100 WBC (Bld) 0.1 % Normal [facility] DTYPE Auto Diff Normal [facility] Eosinophils/100 WBC (Bld) 0.0 % Normal [facility] Erythrocyte distribution width (RBC) [Ratio] 13.1 % Normal 11.5-15.0 [facility] Hematocrit (Bld) [Volume fraction] 35.1 % Low 36.0-46.0 [facility] Hemoglobin (Bld) [Mass/Vol] 11.3 g/dL Low 11.5-15.5 [facility] Lymphocytes (Bld) [#/Vol] 1.88 10*3/uL Normal 1.00-4.00 [facility] Lymphocytes/100 WBC (Bld) 10.8 % Normal [facility] MCH 24.2 pG Low 26.0-34.0 [facility] MCHC (RBC) [Mass/Vol] 32.2 g/dL Normal 30.5-36.0 [facility] MCV (RBC) [Entitic vol] 75.2 fL Low 80.0-100.0 [facility] Monocytes/100 WBC (Bld) 4.2 % Normal [facility] Neutrophils/100 WBC (Bld) 84.9 % Normal [facility] NRBCs 0.0 /100 WBC Normal 0 [facility] l Platelet mean volume (Bld) [Entitic vol] 11.4 fL Normal 9.0-12.7 [facility] Platelets (Bld) [#/Vol] 345 10*3/uL Normal 150-400 [facility] RBC (Bld) [#/Vol] 4.67 10*6/uL Normal 3.90-5.20 [facility] WBC (Bld) [#/Vol] 17.33 10*3/uL High 3.70-11.[address] [facility] [address] ABD/PEL WO IVCONon 2020 CT ABD/PEL WO IVCON * * *Final Report* * * DATE OF EXAM: Jan 17 2021 8:05PM [facility] 0531 - CT ABD/PEL WO IVCON / PROCEDURE REASON: Mass or lump, abdomen pelvis * * * * Physician Interpretation * * * * CT OF CHEST, ABDOMEN AND PELVIS WITHOUT CONTRAST CLINICAL HISTORY: Aspiration (accession [id number]), Mass or lump, abdomen pelvis (accession [id number]) Concern for possible source of infection vs [...] report for details. Pelvic bones are intact. [employer] M[employer] (topogram) images: Unremarkable. IMPRESSION: Left upper [...] be communicated with the ordering provider via [employer] staff message or phone message by Imaging Support Services within 2 business days of report finalization. ACTIONABLE RESULT: FOLLOW-UP Acuity: Actionable Findings: Kidneys/Ureters/Bladder/A drenal Routing Code: GU_1 Recommendation: MRI KIDNEY WO/W IVCON Time Frame: non-urgent, but prompt follow-up. COMMUNICATION: Results will be communicated with the ordering provider via [employer] staff message or phone message by Imaging Support Services within 2 business days of report finalization. Algorithms for management of incidental imaging findings can be found on the [facility] Intranet Sharepoint site at: [email or web address] [email or web address] ging%20Incidental%20Findi ngs%20at%20Imaging/Forms/ AllItems.aspx Professor Of Political Science: GUILLE Transcribe Date/Time: Jan 17 2021 8:20P Dictated by : GALO JIM MD This examination was interpreted and the report reviewed and electronically signed by: GALO JIM MD on Jan 17 2021 8:43PM EST [id number] ACTIONABLE Invalid Interpretation Code [facility] CT BRAIN WO IVCONon 01-18-20 [...] base and imaged soft tissues are unremarkable. [employer] (topogram) images: No additional findings. IMPRESSION: No acute intracranial hemorrhage or mass effect is seen Professor Of Political Science: GUILLE Transcribe Date/Time: Jan 17 2021 4:47P Dictated by : JOHN THAKKAR MD This examination was interpreted and the report reviewed and electronically signed by: JOHN THAKKAR MD on Jan 17 2021 4:48PM EST [id number] Normal [facility] CT CERVICAL SPINE WO IVCONon [...] Counting reference: Craniocervical junction. Anatomic Variants: None. [employer] (topogram) images: No additional findings. Alignment: [...] vertebrae with counting from the craniocervical junction. Professor Of Political Science: GUILLE Transcribe Date/Time: Jan 17 2021 4:49P Dictated by : JOHN THAKKAR MD This examination was interpreted and the report reviewed and electronically signed by: JOHN THAKKAR MD on Jan 17 2021 4:53PM EST [id number] [facility] CT CHEST WO IVCONon 01-18-20 CT CHEST WO IVCON * * *Final Report* * * DATE OF EXAM: Jan 17 2021 8:05PM [facility] 0541 - CT CHEST WO IVCON / PROCEDURE REASON: Aspiration * * * * Physician Interpretation * * * * CT OF CHEST, ABDOMEN AND PELVIS WITHOUT CONTRAST CLINICAL HISTORY: Aspiration (accession [id number]), Mass or lump, abdomen pelvis (accession [id number]) Concern for possible source of infection vs [...] report for details. Pelvic bones are intact. [employer] M[employer] (topogram) images: Unremarkable. IMPRESSION: Left upper [...] be communicated with the ordering provider via [employer] staff message or phone message by Imaging Support Services within 2 business days of report finalization. ACTIONABLE RESULT: FOLLOW-UP Acuity: Actionable Findings: Kidneys/Ureters/Bladder/A drenal Routing Code: GU_1 Recommendation: MRI KIDNEY WO/W IVCON Time Frame: non-urgent, but prompt follow-up. COMMUNICATION: Results will be communicated with the ordering provider via [employer] staff message or phone message by Imaging Support Services within 2 business days of report finalization. Algorithms for management of incidental imaging findings can be found on the [facility] Intranet Sharepoint site at: [email or web address] ntation/[email or web address]/Dilma ging%20Incidental%20Findi ngs%20at%20Imaging/Forms/ AllItems.aspx Professor Of Political Science: GUILLE Transcribe Date/Time: Jan 17 2021 8:20P Dictated by : GALO JIM MD This examination was interpreted and the report reviewed and electronically signed by: GALO JIM MD on Jan 17 2021 8:43PM EST [id number] ACTIONABLE Invalid Interpretation Code [facility] CT LUMBAR SPINE WO IVCONon [...] are 5 lumbar-type vertebrae. Anatomic variant: None. [employer] M[employer] (topogram) images: No additional findings. Alignment: [...] on 01/17/2021 6:08 PM via verbal communication. Professor Of Political Science: GUILLE Transcribe Date/Time: Jan 17 2021 6:05P Dictated by : JOHN THAKKAR MD This examination was interpreted and the report reviewed and electronically signed by: JOHN THAKKAR MD on Jan 17 2021 6:01PM EST This document has been addended by: JOHN THAKKAR MD on Jan 17 2021 6:08PM EST [id number] [facility] CT THORACIC SPINE WO IVCONon [...] the purposes of this report, anatomic variants: [employer] M[employer] (topogram) images: No additional findings. Alignment: [...] and assume there are 5 lumbar-type vertebrae. Professor Of Political Science: GUILLE Transcribe Date/Time: Jan 17 2021 6:03P Dictated by : JOHN THAKKAR MD This examination was interpreted and the report reviewed and electronically signed by: JOHN THAKKAR MD on Jan 17 2021 6:13PM EST [id number] Normal [facility] Comp Metabolic Panelon 01-17 Albumin [Mass/Vol] 3.0 g/dL Low 3.9-4.9 [facility] ospital ALP [Catalytic activity/Vol] 162 U/L High 34-123 [facility] ALT [Catalytic activity/Vol] 7 U/L Normal 7-38 [facility] Anion gap [Moles/Vol] 17 mmol/L Normal 9-18 [facility] AST [Catalytic activity/Vol] 15 U/L Normal 13-35 [facility] Bilirubin [Mass/Vol] 0.4 mg/dL Normal 0.2-1.3 [facility] Calcium [Mass/Vol] 9.6 mg/dL Normal 8.5-10.2 [facility] Chloride [Moles/Vol] 83 mmol/L Low 97-105 [facility] CO2 [Moles/Vol] 20 mmol/L Low 22-30 [facility] Creatinine [Mass/Vol] 2.93 mg/dL High 0.58-0.96 [facility] eGFR- Amer. 20 Normal [facility] eGFR-All Other Races 16 . Normal [facility] Comment on above: Result Comment: eGFR [...] ospital Comment on above: Result Comment: The [place] [employer] Association (ADA) provides guidance for cutoff [...] Standards of Medical Care in Diabetes 2016, [place] [employer]. Diabetes Care. 2016.39(Suppl 1). Potassium [Moles/Vol] 5.5 mmol/L High 3.7-5.1 [facility] Protein [Mass/Vol] 9.5 g/dL High 6.3-8.0 [facility] Sodium [Moles/Vol] 120 mmol/L Low 136-144 [facility] Comment on above: Result Comment: Resu lt checked and verified Urea nitrogen [Mass/Vol] 104 mg/dL High 7-21 [facility] ED NOTEon 01-17-2021 ED NOTE HNO ID: [id number] Author: Prerna Luke RN Service: ? Author Type: Registered Nurse Type: ED Notes Filed: 01/17/2021 9:32 PM Note Text: Report called to 4E RN. Patient stable for transport at this time. [facility] ED NOTE HNO ID: [id number] Author: Prerna Luke RN Service: ? Author Type: Registered Nurse Type: ED Notes Filed: 01/17/2021 9:20 PM Note Text: 16Fr valerio inserted with 500 cc urine immediately drained. Patient tolerated well. [facility] ED NOTE HNO ID: [id number] Author: Prerna Luke RN Service: ? Author Type: Registered Nurse Type: ED Notes Filed: 01/17/2021 7:22 PM Note Text: BC obtained by lab. ABX infusing at this time. [facility] ED NOTE HNO ID: [id number] Author: Prerna Luke RN Service: ? Author Type: Registered Nurse Type: ED Notes Filed: 01/17/2021 7:06 PM Note Text: This RN and 2 medics unable to straight stick patient for blood or draw from existing IVs. Lab will draw one set of BC; GIANNI Tucker notified that only one set will be obtained. [facility] ED NOTE HNO ID: [id number] Author: Prerna Luke RN Service: ? Author Type: Registered Nurse Type: ED Notes Filed: 01/17/2021 4:25 PM Note Text: XR at bedside [facility] ED NOTE HNO ID: [id number] Author: Prerna Luke RN Service: ? Author Type: Registered Nurse Type: ED Notes Filed: 01/17/2021 4:03 PM Note Text: covid swab obtained and walked to lab. [facility] ED NOTE HNO ID: [id number] Author: Bharat Patterson RN Service: ? Author [...] oral intake has been poor Normal [facility] ED PROV NOTEon 01-17-2021 ED PROV NOTE HNO ID: [id number] Author: Garrett Simon PA-C Service: Emergency Medicine Author Type: Physician Foam Fabricator Type: ED Provider Notes Filed: 01/17/2021 9:27 [...] midlin (more content not included)... Normal [facility] HISTORY PHYSICALon HISTORY PHYSICAL HNO ID: [id number] Author: Trevor Porras MD Service: Hospital Medicine Author Type: Physician Type: HANDP Filed: 01/17/2021 10:12 PM Note Text: DEPARTMENT OF HOSPITAL MEDICINE HISTORY AND PHYSICAL EXAM SERVICE DATE: 01/17/2021 Code Status: Not on file SERVICE TIME: 10:00 PM Primary Care Physician: No Pcp NIGHT AND WEEKEND COVERAGE: READING COVERAGE: Days: [phone], please contact via [employer]Share[employer]ves[employer] Office Nights: [phone], please page [facility] Hospitalist Night coverage pager [phone] Subjective CHIEF COMPLAINT: Generalized weakness, falls HPI: [...] Most recen (more content not included)... Normal [facility] Rapid COVIDon 01-17 SARS-CoV-2 (COVID-19) RNA ADRIEL+probe Ql (Unsp spec) UPPER RESPIRATORY TRACT SWAB Normal [facility] Comment on above: Performed By: #### I TCOVD ####[facility] [place], [place] [phone] SARS-CoV-2 (COVID-19) RNA ADRIEL+probe Ql (Unsp spec) Negative for COVID19 (SARS CoV2) by RT-PCR or equivalent method. Normal Negative for COVID19 (SARS CoV2) by RT-PCR or equivalent method. [facility] Comment on above: Result Comment: This test was developed and its performance characteristics determined by [facility] [place]. This test has been authorized by FDA under an Emergency Use Authorization (EUA). This test has been validated in accordance with the FDA's Guidance Document Policy for Diagnostics Testing in Laboratories Certified to Perform High Complexity Testing under CLIA prior to Emergency use Authorization for Coronavirus Disease 2019 during the Public Health Emergency issued on October 19, 2019. Test performed by [facility], [facility] [place], [address] [place], [place] [address]. Performed By: #### I TCOVD ####[place] [id number] [place], [place] [phone] Magnesiumon 01-17-2021 Magnesium [Mass/Vol] 2.0 mg/dL Normal 1.7-2.3 [facility] NT Pro BNPon 01-17-2021 PRO B Natr Peptide 394 pg/mL High <125 [facility] Sed Rate Westergrenon 2020 Sed Rate Westergren 124 mm/hr High 0-20 [facility] Comment on above: Performed By: #### W SR ####[facility] [place], [place] [phone] TSHon 01-17-2021 TSH Qn 0.615 m[IU]/L Normal 0.270-4.200 [facility] Troponin Ton 01-17-2021 Troponin T.cardiac [Mass/Vol] 0.023 ug/L Normal 0.000-0.029 [facility] Urinalysis with Microscopico n 01-17-2021 Bacteria Present Critically abnormal 0 [facility] Bilirubin, Urine Negative Normal Negative [facility] pital Cast SEE COMMENT Normal 0 [facility] Comment on above: Result Comment: 0 Clarity (U) Turbid Critically abnormal Clear [facility] Color (U) Yellow Normal Yellow [facility] Glucose Ql (U) Negative Normal Negative [facility] Hemoglobin/Blood,Ur 2+ Critically abnormal Negative [facility] Ketones Ql (U) Negative Normal Negative [facility] tae Leukest 3+ Critically abnormal Negative [facility] Nitrite Ql (U) Positive Critically abnormal Negative [facility] pH (U) 8.5 [pH] High 5.0-8.0 [facility] Protein, Urine 2+ Critically abnormal Negative [facility] RBC 3-5 Critically abnormal 0-3 [facility] Specific [place], Ur 1.013 Normal 1.005-1.030 [facility] Urobilinogen Qn (U) 0.2 {Madeleine'U}/dL Normal 0.2-1.0 [facility] WBC (U) [#/Vol] /uL Critically abnormal 0-5 [facility] Urine Cultureon 01-17-2021 Bacteria identified [...] Ertapenem SUSCEPTIBLE <=0.5 F Critically abnormal [facility] Comment on above: Performed By: #### U [facility] ####[place] [address] [place], [place] [phone] XR CHEST 1V FRONTAL PORTon 0 01-17-2021 [...] exam with no evidence of acute disease. Professor Of Political Science: PSCB Transcribe Date/Time: Jan 17 2021 4:40P Dictated by : FLASH WOODS MD This examination was interpreted and the report reviewed and electronically signed by: FLASH WOODS MD on Jan 17 2021 4:41PM EST [id number] Normal [facility] Vital Signs Date Time Vital Sign Value Performing Clinician Facility 05-29-2025 14:13040 Body height 152.4 cm PHYSICIAN [facility] 05-29-2025 14:130400 Body mass index (BMI) [Ratio] 24.4 kg/m2 PHYSICIAN [facility] 05-29-2025 14:13040 Body temperature 96.7 [degF] PHYSICIAN [facility] 05-29-2025 14:130400 Body weight 56.69 kg PHYSICIAN [facility] 05-29-2025 14:13040 Diastolic blood pressure 68 mm[Hg] PHYSICIAN [facility] 05-29-2025 14:130400 Heart rate 81 /min PHYSICIAN [facility] 05-29-2025 14:130400 SaO2% (BldA) [Mass fraction] 98 % PHYSICIAN [facility] 05-29-2025 14:13-0400 Systolic blood pressure 138 mm[Hg] PHYSICIAN NO [facility] 05-26-2025 13:16-0400 Diastolic blood pressure 91 mm[Hg] Eli Sprague MD Work Phone: [facility] 05-26-2025 13:16-0400 Heart rate 71 /min Eli Sprague MD Work Phone: [facility] 05-26-2025 13:16-0400 Respiratory rate 18 /min Eli Sprague MD Work Phone: [facility] 05-26-2025 13:16-0400 SaO2% (BldA) [Mass fraction] 97 % Eli Sprague MD Work Phone: [facility] 05-26-2025 13:16-0400 Systolic blood pressure 163 mm[Hg] Eli Sprague MD Work Phone: [facility] 05-26-2025 08:00-0400 Body temperature 98.2 [degF] Eli Sprague MD Work Phone: [facility] 05-26-2025 06:00-0400 Body weight 56 kg Eli Sprague MD Work Phone: [facility] 05-21-2025 14:43-0400 Body height 152.4 cm Eli Sprague MD Work Phone: [facility] 05-20-2025 19:31-0400 Diastolic blood pressure 74 mm[Hg] PHYSICIAN NO [facility] 05-20-2025 19:31-0400 Heart rate 63 /min PHYSICIAN NO [facility] 05-20-2025 19:31-0400 Systolic blood pressure 156 mm[Hg] PHYSICIAN NO [facility] 05-20-2025 16:45-0400 Respiratory rate 20 /min PHYSICIAN NO [facility] 05-20-2025 16:45-0400 SaO2% (BldA) [Mass fraction] 95 % PHYSICIAN NO [facility] 05-20-2025 15:19-0400 Body height 152.4 cm PHYSICIAN NO [facility] 05-20-2025 15:19-0400 Body temperature 98.2 [degF] PHYSICIAN NO [facility] 05-20-2025 15:19-0400 Body weight 58.05 kg PHYSICIAN NO [facility] 05-14-2025 11:06-0400 Diastolic blood pressure 84 mm[Hg] PHYSICIAN NO [facility] 05-14-2025 11:06-0400 Systolic blood pressure 149 mm[Hg] PHYSICIAN NO [facility] 05-14-2025 11:01-0400 Body height 152.4 cm PHYSICIAN NO [facility] 05-14-2025 11:01-0400 Body mass index (BMI) [Ratio] 25 kg/m2 PHYSICIAN NO [facility] 05-14-2025 11:01-0400 Body weight 58.05 kg PHYSICIAN NO [facility] 05-14-2025 11:01-0400 Heart rate 72 /min PHYSICIAN NO [facility] 05-14-2025 11:01-0400 Respiratory rate 16 /min PHYSICIAN NO [facility] 05-14-2025 11:01-0400 SaO2% (BldA) [Mass fraction] 100 % PHYSICIAN NO [facility] 03-17-2025 14:05-0400 Body height 152.4 cm PHYSICIAN NO [facility] 03-17-2025 14:05-0400 Body mass index (BMI) [Ratio] 25.2 kg/m2 PHYSICIAN NO [facility] 03-17-2025 14:05-0400 Body weight 58.68 kg PHYSICIAN NO [facility] 03-17-2025 14:05-0400 Diastolic blood pressure 75 mm[Hg] PHYSICIAN NO [facility] 03-17-2025 14:05-0400 Heart rate 72 /min PHYSICIAN NO [facility] 03-17-2025 14:05-0400 Respiratory rate 16 /min PHYSICIAN NO [facility] 03-17-2025 14:05-0400 SaO2% (BldA) [Mass fraction] 97 % PHYSICIAN NO [facility] 03-17-2025 14:05-0400 Systolic blood pressure 145 mm[Hg] PHYSICIAN NO [facility] 03-12-2025 13:05-0400 Body height 152.4 cm Sweta Verhoff PA-C Work Phone: [facility] 03-12-2025 13:05-0400 Body mass index (BMI) [Ratio] 25 kg/m2 Sweta Verhoff PA-C Work Phone: [facility] 03-12-2025 13:05-0400 Body weight 58.06 kg Sweta Verhoff PA-C Work Phone: [facility] 03-12-2025 13:05-0400 Diastolic blood pressure 92 mm[Hg] Sweta Verhoff PA-C Work Phone: [facility] 03-12-2025 13:05-0400 Heart rate 71 /min Sweta Verhoff PA-C Work Phone: [facility] 03-12-2025 13:05-0400 SaO2% (BldA) [Mass fraction] 96 % Sweta Verhoff PA-C Work Phone: [facility] 03-12-2025 13:05-0400 Systolic blood pressure 173 mm[Hg] Sweta Verhoff PA-C Work Phone: [facility] 01-27-2025 15:09-0400 Body mass index (BMI) [Ratio] 25.15 kg/m2 Agusto Olmstead GRANULATING MACHINE OPERATOR Work Phone: [facility] 01-27-2025 15:09-0400 Body temperature 97.81 [degF] Agusto Olmstead GRANULATING MACHINE OPERATOR Work Phone: [facility] 01-27-2025 15:09-0400 Body weight 58.42 kg Agusto Olmstead GRANULATING MACHINE OPERATOR Work Phone: [facility] 01-27-2025 15:09-0400 Diastolic blood pressure 80 mm[Hg] Agusto Olmstead GRANULATING MACHINE OPERATOR Work Phone: [facility] 01-27-2025 15:09-0400 Heart rate 69 /min Agusto Olmstead GRANULATING MACHINE OPERATOR Work Phone: [facility] 01-27-2025 15:09-0400 Respiratory rate 18 /min Agusto Olmstead GRANULATING MACHINE OPERATOR Work Phone: [facility] 01-27-2025 15:09-0400 SaO2% (BldA) [Mass fraction] 96 % Agusto Olmstead GRANULATING MACHINE OPERATOR Work Phone: [facility] 01-27-2025 15:09-0400 Systolic blood pressure 146 mm[Hg] Agusto Olmstead GRANULATING MACHINE OPERATOR Work Phone: [facility] 01-08-2025 12:01-0400 Body height 152.4 cm Sweta Verhoff PA-C Work Phone: [facility] 01-08-2025 12:01-0400 Body mass index (BMI) [Ratio] 25.58 kg/m2 Sweta Verhoff PA-C Work Phone: [facility] 01-08-2025 12:01-0400 Body weight 59.42 kg Sweta Verhoff PA-C Work Phone: [facility] 01-08-2025 12:01-0400 Diastolic blood pressure 71 mm[Hg] Sweta Verhoff PA-C Work Phone: [facility] 01-08-2025 12:01-0400 Heart rate 70 /min Sweta Verhoff PA-C Work Phone: [facility] 01-08-2025 12:01-0400 Respiratory rate 18 /min Sweta Verhoff PA-C Work Phone: [facility] 01-08-2025 12:01-0400 SaO2% (BldA) [Mass fraction] 100 % Sweta Verhoff PA-C Work Phone: [facility] 01-08-2025 12:01-0400 Systolic blood pressure 137 mm[Hg] Sweta Ch PA-C Work Phone: [facility] 12-05-2024 13:31-0400 Body height 152.4 cm Cory Angeles DPM Work Phone: [facility] 12-05-2024 13:31-0400 Body mass index (BMI) [Ratio] 25.39 kg/m2 Cory Angeles DPM Work Phone: [facility] 12-05-2024 13:31-0400 Body weight 58.97 kg Cory Angeles DPM Work Phone: [facility] 12-05-2024 13:31-0400 Respiratory rate 18 /min Cory Angeles DPM Work Phone: [facility] 12-04-2024 10:57-0400 Body height 152.4 cm Agusto Cainz GRANULATING MACHINE OPERATOR Work Phone: [facility] 12-04-2024 10:57-0400 Body mass index (BMI) [Ratio] 26.17 kg/m2 Agusto Aichholz GRANULATING MACHINE OPERATOR Work Phone: [facility] 12-04-2024 10:57-0400 Body temperature 97.5 [degF] Agusto Aichholz GRANULATING MACHINE OPERATOR Work Phone: [facility] 12-04-2024 10:57-0400 Body weight 60.78 kg Agusto Aichholz GRANULATING MACHINE OPERATOR Work Phone: [facility] 12-04-2024 10:57-0400 Diastolic blood pressure 72 mm[Hg] Agusto Aichholz GRANULATING MACHINE OPERATOR Work Phone: [facility] 12-04-2024 10:57-0400 Heart rate 61 /min Agusto Aichholz GRANULATING MACHINE OPERATOR Work Phone: [facility] 12-04-2024 10:57-0400 Respiratory rate 20 /min Agusto Aichholz GRANULATING MACHINE OPERATOR Work Phone: [facility] 12-04-2024 10:57-0400 SaO2% (BldA) [Mass fraction] 97 % Agusto Aichholz GRANULATING MACHINE OPERATOR Work Phone: [facility] 12-04-2024 10:57-0400 Systolic blood pressure 134 mm[Hg] Agusto Aichholz GRANULATING MACHINE OPERATOR Work Phone: [facility] 11-26-2024 12:12-0400 Diastolic blood pressure 79 mm[Hg] Agusto Aichholz Work Phone: [facility] 11-26-2024 12:12-0400 Heart rate 69 /min Agusto Aichholz Work Phone: [facility] 11-26-2024 12:12-0400 Respiratory rate 18 /min Agusto Aichholz Work Phone: [facility] 11-26-2024 12:12-0400 SaO2% (BldA) [Mass fraction] 96 % Agusto Aichholz Work Phone: [facility] 11-26-2024 12:12-0400 Systolic blood pressure 191 mm[Hg] Agusto Aichholz Work Phone: [facility] 11-26-2024 08:10-0400 Body temperature 98 [degF] Agusto Aichholz Work Phone: [facility] 11-26-2024 05:28-0400 Body weight 60.4 kg Agusto Aichholz Work Phone: [facility] 11-25-2024 14:27-0400 Body height 152.4 cm Agusto Aichholz Work Phone: [facility] 11-23-2024 20:05-0400 Diastolic blood pressure 57 mm[Hg] Agusto Aichholz Work Phone: [facility] 11-23-2024 20:05-0400 Heart rate 66 /min Agusto Aichholz Work Phone: [facility] 11-23-2024 20:05-0400 Respiratory rate 25 /min Agusto Aichholz Work Phone: [facility] 11-23-2024 20:05-0400 SaO2% (BldA) [Mass fraction] 97 % Agusto Aichholz Work Phone: [facility] 11-23-2024 20:05-0400 Systolic blood pressure 122 mm[Hg] Agusto Aichholz Work Phone: [facility] 11-23-2024 15:12-0400 Body height 152.4 cm Agusto Aichholz Work Phone: [facility] 11-23-2024 15:12-0400 Body temperature 98.1 [degF] Agusto Aichholz Work Phone: [facility] 11-23-2024 15:12-0400 Body weight 60.15 kg Agusto Aichholz Work Phone: [facility] 11-18-2024 10:17-0400 Body mass index (BMI) [Ratio] 25.58 kg/m2 Agusto Aichholz GRANULATING MACHINE OPERATOR Work Phone: [facility] 11-18-2024 10:17-0400 Body temperature 97.81 [degF] Agusto Aichholz GRANULATING MACHINE OPERATOR Work Phone: [facility] 11-18-2024 10:17-0400 Body weight 59.42 kg Agusto Aichholz GRANULATING MACHINE OPERATOR Work Phone: [facility] 11-18-2024 10:17-0400 Diastolic blood pressure 96 mm[Hg] Agusto Aichholz GRANULATING MACHINE OPERATOR Work Phone: [facility] 11-18-2024 10:17-0400 Heart rate 73 /min Agusto Aichholz GRANULATING MACHINE OPERATOR Work Phone: [facility] 11-18-2024 10:17-0400 Respiratory rate 19 /min Agusto Aichholz GRANULATING MACHINE OPERATOR Work Phone: [facility] 11-18-2024 10:17-0400 SaO2% (BldA) [Mass fraction] 99 % Agusto Zapatamundo GRANULATING MACHINE OPERATOR Work Phone: [facility] 11-18-2024 10:17-0400 Systolic blood pressure 164 mm[Hg] Agusto Aysha GRANULATING MACHINE OPERATOR Work Phone: [facility] 10-09-2024 11:10-0500 Diastolic blood pressure 97 mm[Hg] Sweta Verhoff PA-C Work Phone: [facility] 10-09-2024 11:10-0500 Heart rate 78 /min Sweta Verhoff PA-C Work Phone: [facility] 10-09-2024 11:10-0500 Respiratory rate 20 /min Sweta Verhoff PA-C Work Phone: [facility] 10-09-2024 11:10-0500 Systolic blood pressure 200 mm[Hg] Sweta Verhoff PA-C Work Phone: [facility] 09-11-2024 11:11-0500 Diastolic blood pressure 100 mm[Hg] Agusto Francisenrico GRANULATING MACHINE OPERATOR Work Phone: [facility] 09-11-2024 11:11-0500 Systolic blood pressure 200 mm[Hg] Agusto Aysha GRANULATING MACHINE OPERATOR Work Phone: [facility] 09-11-2024 10:57-0500 Body height 152.4 cm Agusto Aysha GRANULATING MACHINE OPERATOR Work Phone: [facility] 09-11-2024 10:57-0500 Body mass index (BMI) [Ratio] 25.58 kg/m2 Agusto Aysha GRANULATING MACHINE OPERATOR Work Phone: [facility] 09-11-2024 10:57-0500 Body temperature 98.8 [degF] Agusto Aysha GRANULATING MACHINE OPERATOR Work Phone: [facility] 09-11-2024 10:57-0500 Body weight 59.42 kg Agusto Aichholz GRANULATING MACHINE OPERATOR Work Phone: [facility] 09-11-2024 10:57-0500 Heart rate 74 /min Agusto Aichholz GRANULATING MACHINE OPERATOR Work Phone: [facility] 09-11-2024 10:57-0500 Respiratory rate 18 /min Agusto Aichholz GRANULATING MACHINE OPERATOR Work Phone: [facility] 09-11-2024 10:57-0500 SaO2% (BldA) [Mass fraction] 97 % Agusto Aichholz GRANULATING MACHINE OPERATOR Work Phone: [facility] 09-08-2024 08:00-0500 Body temperature 97.9 [degF] Agusto Aichholz Work Phone: [facility] 09-08-2024 08:00-0500 Diastolic blood pressure 79 mm[Hg] Agusto Aichholz Work Phone: [facility] 09-08-2024 08:00-0500 Heart rate 64 /min Agusto Aichholz Work Phone: [facility] 09-08-2024 08:00-0500 Respiratory rate 16 /min Agusto Aichholz Work Phone: [facility] 09-08-2024 08:00-0500 SaO2% (BldA) [Mass fraction] 96 % Agusto Aichholz Work Phone: [facility] 09-08-2024 08:00-0500 Systolic blood pressure 169 mm[Hg] Agusto Aichholz Work Phone: [facility] 09-08-2024 06:50-0500 Body weight 54.7 kg Agusto Aichholz Work Phone: [facility] 09-06-2024 12:51-0500 Body height 152.4 cm Agusto Aichholz Work Phone: [facility] 09-06-2024 00:36-0500 Body height 152.4 cm Agusto Aichholz Work Phone: [facility] 09-06-2024 00:36-0500 Body temperature 97.6 [degF] Agusto Aichholz Work Phone: [facility] 09-06-2024 00:36-0500 Body weight 57.6 kg Agusto Aichholz Work Phone: [facility] 09-06-2024 00:36-0500 Diastolic blood pressure 71 mm[Hg] Agusto Aichholz Work Phone: [facility] 09-06-2024 00:36-0500 Heart rate 75 /min Agusto Aichholz Work Phone: [facility] 09-06-2024 00:36-0500 Respiratory rate 18 /min Agusto Aichholz Work Phone: [facility] 09-06-2024 00:36-0500 SaO2% (BldA) [Mass fraction] 97 % Agusto Aichholz Work Phone: [facility] 09-06-2024 00:36-0500 Systolic blood pressure 160 mm[Hg] Agusto Aichholz Work Phone: [facility] 09-04-2024 11:25-0500 Diastolic blood pressure 110 mm[Hg] [facility] 09-04-2024 11:25-0500 Systolic blood pressure 216 mm[Hg] [facility] 09-04-2024 11:23-0500 Body height 152.4 cm [facility] 09-04-2024 11:23-0500 Body mass index (BMI) [Ratio] 24.9 kg/m2 [facility] 09-04-2024 11:23-0500 Body temperature 96.5 [degF] [facility] 09-04-2024 11:23-0500 Body weight 57.83 kg [facility] 09-04-2024 11:23-0500 Heart rate 73 /min [facility] 09-04-2024 11:23-0500 Respiratory rate 16 /min [facility] 09-04-2024 11:23-0500 SaO2% (BldA) [Mass fraction] 99 % [facility] 08-27-2024 14:36-0500 Body height 152.4 cm Agusto Aichholz GRANULATING MACHINE OPERATOR Work Phone: [facility] 08-27-2024 14:36-0500 Body mass index (BMI) [Ratio] 25.94 kg/m2 Agusto Aichholz GRANULATING MACHINE OPERATOR Work Phone: [facility] 08-27-2024 14:36-0500 Body temperature 98.8 [degF] Agusto Aichholz GRANULATING MACHINE OPERATOR Work Phone: [facility] 08-27-2024 14:36-0500 Body weight 60.24 kg Agusto Aichholz GRANULATING MACHINE OPERATOR Work Phone: [facility] Comment on above: with winter coat on 08-27-2024 14:36-0500 Diastolic blood pressure 86 mm[Hg] Agusto Aichholz GRANULATING MACHINE OPERATOR Work Phone: [facility] 08-27-2024 14:36-0500 Heart rate 71 /min Agusto Aichholz GRANULATING MACHINE OPERATOR Work Phone: [facility] 08-27-2024 14:36-0500 Respiratory rate 20 /min Agusto Aichholz GRANULATING MACHINE OPERATOR Work Phone: [facility] 08-27-2024 14:36-0500 SaO2% (BldA) [Mass fraction] 97 % Agusto Aichholz GRANULATING MACHINE OPERATOR Work Phone: [facility] 08-27-2024 14:36-0500 Systolic blood pressure 178 mm[Hg] Agusto Aichholz GRANULATING MACHINE OPERATOR Work Phone: [facility] 06-11-2024 11:32-0400 Body height 152.4 cm Agusto Aichholz GRANULATING MACHINE OPERATOR Work Phone: [facility] 06-11-2024 11:32-0400 Body mass index (BMI) [Ratio] 25.19 kg/m2 Agustosahara Barlowz GRANULATING MACHINE OPERATOR Work Phone: [facility] 06-11-2024 11:32-0400 Body temperature 98.1 [degF] Agustosahara Zapataholz GRANULATING MACHINE OPERATOR Work Phone: [facility] 06-11-2024 11:32-0400 Body weight 58.51 kg Agustosahara Zapataholz GRANULATING MACHINE OPERATOR Work Phone: [facility] 06-11-2024 11:32-0400 Diastolic blood pressure 82 mm[Hg] Agusto Richholz GRANULATING MACHINE OPERATOR Work Phone: [facility] 06-11-2024 11:32-0400 Heart rate 75 /min Agustosahara Zapataholz GRANULATING MACHINE OPERATOR Work Phone: [facility] 06-11-2024 11:32-0400 Respiratory rate 18 /min Agustosahara Zapataholz GRANULATING MACHINE OPERATOR Work Phone: [facility] 06-11-2024 11:32-0400 SaO2% (BldA) [Mass fraction] 97 % Agustosahara Zapataholz GRANULATING MACHINE OPERATOR Work Phone: [facility] 06-11-2024 11:32-0400 Systolic blood pressure 140 mm[Hg] Agusto Zapataholz GRANULATING MACHINE OPERATOR Work Phone: [facility] 06-05-2024 15:05-0400 Body height 154.94 cm [facility] 06-05-2024 15:05-0400 Body mass index (BMI) [Ratio] 23.4 kg/m2 [facility] 06-05-2024 15:05-0400 Body temperature 97.6 [degF] [facility] 06-05-2024 15:05-0400 Body weight 56.3 kg [facility] 06-05-2024 15:05-0400 Diastolic blood pressure 75 mm[Hg] [facility] 06-05-2024 15:05-0400 Heart rate 86 /min [facility] 06-05-2024 15:05-0400 Respiratory rate 16 /min [facility] 06-05-2024 15:05-0400 SaO2% (BldA) [Mass fraction] 97 % [facility] 06-05-2024 15:05-0400 Systolic blood pressure 123 mm[Hg] [facility] 05-01-2024 10:45-0400 Diastolic blood pressure 96 mm[Hg] Juanito Barnard MD Work Phone: [facility] 05-01-2024 10:45-0400 Heart rate 74 /min Juanito Barnard MD Work Phone: [facility] 05-01-2024 10:45-0400 Systolic blood pressure 173 mm[Hg] Juanito Barnard MD Work Phone: [facility] 04-16-2024 14:25-0400 Body height 152.4 cm Agusto Aysha GRANULATING MACHINE OPERATOR Work Phone: [facility] 04-16-2024 14:25-0400 Body mass index (BMI) [Ratio] 24.88 kg/m2 Agusto Cainz GRANULATING MACHINE OPERATOR Work Phone: [facility] 04-16-2024 14:25-0400 Body temperature 97.81 [degF] Agusto Cainz GRANULATING MACHINE OPERATOR Work Phone: [facility] 04-16-2024 14:25-0400 Body weight 57.79 kg Agusto Cainz GRANULATING MACHINE OPERATOR Work Phone: [facility] 04-16-2024 14:25-0400 Diastolic blood pressure 80 mm[Hg] Agusto Aichanilaz GRANULATING MACHINE OPERATOR Work Phone: [facility] 04-16-2024 14:25-0400 Heart rate 80 /min Agusto Richanilaz GRANULATING MACHINE OPERATOR Work Phone: [facility] 04-16-2024 14:25-0400 Respiratory rate 18 /min Agusto Cainz GRANULATING MACHINE OPERATOR Work Phone: [facility] 04-16-2024 14:25-0400 SaO2% (BldA) [Mass fraction] 95 % Agusto Olmstead GRANULATING MACHINE OPERATOR Work Phone: [facility] 04-16-2024 14:25-0400 Systolic blood pressure 116 mm[Hg] Agusto Aysha GRANULATING MACHINE OPERATOR Work Phone: [facility] 03-26-2024 10:48-0400 Body mass index (BMI) [Ratio] 24.41 kg/m2 Carmneza Espinosa MD Work Phone: [facility] 03-26-2024 10:48-0400 Body weight 56.7 kg Carmenza Espinosa MD Work Phone: [facility] Comment on above: [facility] 01-12-2024 13:50-0400 Diastolic blood pressure 69 mm[Hg] Taurus Ballard MD Work Phone: [facility] 01-12-2024 13:50-0400 Heart rate 75 /min Taurus Ballard MD Work Phone: [facility] 01-12-2024 13:50-0400 Systolic blood pressure 142 mm[Hg] Taurus Ballard MD Work Phone: [facility] 10-25-2023 15:12-0500 Blood Pressure Location HEIDY ARNOLD [facility] 10-25-2023 15:12-0500 Body temperature 96.8 [degF] HEIDY ARNOLD [facility] 10-25-2023 15:12-0500 Diastolic blood pressure 78 mm[Hg] HEIDY ARNOLD [facility] 10-25-2023 15:12-0500 Heart rate 86 /min HEIDY ARNOLD [facility] 10-25-2023 15:12-0500 Systolic blood pressure 122 mm[Hg] HEIDY ARNOLD [facility] 08-01-2023 15:00-0500 Body height 154.94 cm [facility] 06-08-2023 13:00-0400 Body height 154.94 cm Tondra Mapus Other [employer] Other 06-08-2023 13:00-0400 Body mass index (BMI) [Ratio] 25.37 kg/m2 Tondra Mapus Other [employer] Other 06-08-2023 13:00-0400 Body weight 60.92 kg Tondra Mapus Other [employer] Other 06-08-2023 13:00-0400 Diastolic blood pressure 66 mm[Hg] Tondra Mapus Other [employer] Other 06-08-2023 13:00-0400 Respiratory rate 18 /min Tondra Mapus Other [employer] Other 06-08-2023 13:00-0400 SaO2% (BldA) [Mass fraction] 100 % Tondra Mapus Other [employer] Other 06-08-2023 13:00-0400 Systolic blood pressure 107 mm[Hg] Tondra Mapus Other [employer] Other 05-18-2023 11:00-0400 Body height 154.94 cm Tondra Mapus Other [employer] Other 05-18-2023 11:00-0400 Body mass index (BMI) [Ratio] 24.69 kg/m2 Tondra Mapus Other [employer] Other 05-18-2023 11:00-0400 Body weight 59.29 kg Tondra Mapus Other [employer] Other 05-18-2023 11:00-0400 Diastolic blood pressure 96 mm[Hg] Tondra Mapus Other [employer] Other 05-18-2023 11:00-0400 Respiratory rate 18 /min Tondra Mapus Other [employer] Other 05-18-2023 11:00-0400 SaO2% (BldA) [Mass fraction] 97 % Tondra Mapus Other [employer] Other 05-18-2023 11:00-0400 Systolic blood pressure 161 mm[Hg] Tondra Mapus Other [employer] Other 02-22-2023 08:34-0400 Blood Pressure Location Lisa Lue [facility] 02-22-2023 08:34-0400 Diastolic blood pressure 66 mm[Hg] Lisa Lue [facility] 02-22-2023 08:34-0400 Heart rate 76 /min Lisa Lue [facility] 02-22-2023 08:34-0400 Systolic blood pressure 106 mm[Hg] Lisa Lue [facility] 12-27-2022 16:00-0400 Body height 154.94 cm Eli Sprague Other [employer] Other 12-27-2022 16:00-0400 Body mass index (BMI) [Ratio] 26.11 kg/m2 Eli Sprague Other [employer] Other 12-27-2022 16:00-0400 Body temperature 96.5 [degF] Eli Mendenhalls Other [employer] Other 12-27-2022 16:00-0400 Body weight 62.69 kg Eli Mendenhalls Other [employer] Other 12-27-2022 16:00-0400 Diastolic blood pressure 98 mm[Hg] Eli Mendenhalls Other [employer] Other 12-27-2022 16:00-0400 Respiratory rate 18 /min Eli Mendenhalls Other [employer] Other 12-27-2022 16:00-0400 SaO2% (BldA) [Mass fraction] 98 % Eli Mendenhalls Other [employer] Other 12-27-2022 16:00-0400 Systolic blood pressure 151 mm[Hg] Eli Mendenhalls Other [place] [employer] Other 09-21-2022 08:42-0500 Blood Pressure Location Lisa Lue [facility] 09-21-2022 08:42-0500 Diastolic blood pressure 67 mm[Hg] Lisa Lue [facility] 09-21-2022 08:42-0500 Heart rate 74 /min Lisa Lue [facility] 09-21-2022 08:42-0500 Systolic blood pressure 103 mm[Hg] Lisa Olvera [facility] Encounters Encounter Date Encounter Type Care Provider Facility Start: 06-02-2025 End: 06-02-2025 Patient encounter procedure Eli Sprague MD -[facility] Work Phone: Start: 06-02-2025 End: 06-02-2025 ambulatory PHYSICIAN NO FAMILY Facility:[facility] Start: 05-29-2025 End: 05-29-2025 Patient encounter procedure Domen[facility] Work Phone: Start: 05-29-2025 End: 05-29-2025 ambulatory PHYSICIAN NO [facility] Work Phone: Start: 05-20-2025 End: 05-26-2025 Evaluation and management of inpatient Ankush Pulido MD -[address] [place] [address] Med Surg Work Phone: Start: 05-20-2025 Non-patient / Non-visit Eli Sprague MD -[facility] Work Phone: Start: 05-19-2025 End: 05-23-2025 Refill Barbara Lucero RN [facility] Comment on above: Complex regional saranya n syndrome type 1 of right upper extremity; Reflex sympathetic dystrophy of right upper extremity Start: 05-14-2025 End: 05-14-2025 ambulatory PHYSICIAN NO [facility] Work Phone: Start: 05-14-2025 End: 05-14-2025 Patient encounter procedure Eli Sprague MD -[facility] Work Phone: Start: 05-05-2025 Non-patient / Non-visit Eli Sprague MD -[facility] Work Phone: Start: 04-18-2025 End: 04-18-2025 Refill Yesenia Burnett RN [facility] Comment on above: 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 Start: 03-25-2025 Non-patient / Non-visit Eli Sprague MD -[facility] Work Phone: Start: 03-17-2025 End: 03-17-2025 ambulatory PHYSICIAN JARAD [facility] Work Phone: Start: 03-17-2025 End: 03-17-2025 Patient encounter procedure Eli Sprague MD -[facility] Work Phone: Start: 03-13-2025 End: 03-14-2025 Refill Agusto Gray CNA [facility] Comment on above: Complex regional saranya n syndrome type 1 of right upper extremity; Reflex sympathetic dystrophy of right upper extremity Start: 03-12-2025 End: 03-12-2025 Office outpatient visit 25 minutes Sweta Ch PA-C Work Phone: [facility] Comment on above: Complex regional saranya n syndrome type 1 of right upper extremity (Primary Dx) Start: 03-12-2025 End: 03-12-2025 ambulatory SWETA MUJICAANIYAH [facility] Start: 03-03-2025 End: 03-14-2025 Telephone encounter Sweta Ch PA-C Work Phone: [facility] Start: 02-28-2025 End: 02-28-2025 ambulatory ZACKERY Jennifer HUGHESAN [facility] Start: 02-11-2025 End: 02-11-2025 Departed Referred Jori Tillman DO -[facility] Start: 02-11-2025 End: 02-14-2025 ambulatory Agusto Olmstead Work Phone: [facility] Work Phone: Comment on above: 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 Start: 02-06-2025 End: 03-06-2025 Telephone encounter Asia Barreto RN [facility] Start: 01-30-2025 End: 01-30-2025 Clinisync Result Encounter Agusto Olmstead NP Work Phone: [facility] External Department Unsolicited Start: 01-30-2025 End: 01-30-2025 Clinisync Result Encounter Agusto Olmstead NP Work Phone: [facility] External Department Unsolicited Start: 01-27-2025 End: 01-27-2025 Office outpatient visit 40 minutes Agusto Olmstead NP Work Phone: [facility] Comment on above: Chronic kidney disea se, stage 4 (severe) (CMS/HCC) (Primary Dx); Mixed hyperlipidemia (CMS/HCC); Essential (primary) hypertension ([facility]/HCC); Burning with urination; UTI symptoms; Urinary tract infection symptoms; Type 2 diabetes mellitus with diabetic neuropathy, with long-term current use of insulin ([facility]); History of neurogenic bladder; Neurogenic bladder; 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; Hyperparathyroidism, unspecified ([facility]); B12 deficiency; Type 2 diabetes mellitus with hyperglycemia, with long-term current use of insulin ([facility]); Vitamin D deficiency; Hypomagnesemia; Non compliance w medication regimen; Fatigue, unspecified type; Other fatigue Start: 01-27-2025 End: 01-27-2025 ambulatory AGUSTO OLMSTEAD Not Available Start: 01-27-2025 End: 01-27-2025 Bamboo flowsheet Agusto Olmstead GRANULATING MACHINE OPERATOR Work Phone: [facility] Start: 01-27-2025 End: 01-27-2025 Bamboo flowsheet Agusto Olmstead GRANULATING MACHINE OPERATOR Work Phone: [facility] CW [facility] Start: 01-15-2025 End: 01-17-2025 Refill Asia Barreto RN [facility] Comment on above: 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; Complex regional pain syndrome type 1 of right upper extremity Start: 01-08-2025 End: 01-08-2025 Office outpatient visit 25 minutes Sweta Ch PA-C Work Phone: [facility] Comment on above: 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 (Primary Dx) Start: 01-08-2025 End: 01-08-2025 ambulatory SWETA [facility] Start: 12-18-2024 End: 12-20-2024 Refill Agusto Marina MEMORIAL COUNSELOR [facility] Comment on above: 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 Start: 12-05-2024 End: 12-05-2024 ambulatory CORY ANGELES Not Available Start: 12-05-2024 End: 12-05-2024 Postop follow up visit related to original px Cory Angeles DPM Work Phone: [facility] Comment on above: Cellulitis of right foot (Primary Dx); Laceration of right foot with foreign body, initial encounter; Diabetes mellitus due to underlying condition with diabetic polyneuropathy, with long-term current use of insulin (CMS/[facility]) Start: 12-04-2024 End: 12-04-2024 Bamboo flowsheet Agusto Olmstead GRANULATING MACHINE OPERATOR Work Phone: [facility] Start: 12-04-2024 End: 12-04-2024 Bamboo flowsheet Agusto Olmstead GRANULATING MACHINE OPERATOR Work Phone: [facility] Start: 12-04-2024 End: 12-04-2024 Office outpatient visit 25 minutes Agusto Olmstead GRANULATING MACHINE OPERATOR Work Phone: 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 ([facility]); Non compliance w medication regimen; Memory impairment Start: 12-04-2024 End: 12-04-2024 ambulatory AGUSTO AICHHOLZ Not Available Start: 11-24-2024 Non-patient / Non-visit Agusto Aichholz Work Phone: [facility] Work Phone: Start: 11-23-2024 End: 11-26-2024 Evaluation and management of inpatient Agusto Aichholz Work Phone: [facility] Work Phone: Start: 11-21-2024 End: 11-22-2024 Clinisync Result Encounter Agusto Aichholz GRANULATING MACHINE OPERATOR Work Phone: [facility] External Department Unsolicited Start: 11-21-2024 End: 11-22-2024 Clinisync Result Encounter Agusto Aichholz GRANULATING MACHINE OPERATOR Work Phone: [facility] External Department Unsolicited Start: 11-18-2024 End: 11-18-2024 Bamboo flowsheet Agusto Aichholz GRANULATING MACHINE OPERATOR Work Phone: [facility] Start: 11-18-2024 End: 11-18-2024 Bamboo flowsheet Agusto Aichholz GRANULATING MACHINE OPERATOR Work Phone: [facility] Start: 11-18-2024 End: 11-18-2024 Patient encounter procedure Agusto Aichholz GRANULATING MACHINE OPERATOR Work Phone: [facility] Comment on above: Encounter for subseq uent annual wellness visit (AWV) in Medicare patient (Primary Dx); RSD (reflex sympathetic dystrophy); Type 2 diabetes mellitus with diabetic neuropathy, with long-term current use of insulin ([facility]); Essential (primary) hypertension ([facility]); Chronic kidney disease, stage 4 (severe) ([facility]) ; Type 2 diabetes mellitus with hyperglycemia, with long-term current use of insulin ([facility]); USP (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 ([facility]); Non compliance w medication regimen; Right foot pain; Chest pain, unspecified type; Continuous leakage of urine; Neurogenic bladder Start: 11-18-2024 End: 11-18-2024 ambulatory AGUSTO AICHHOLZ Not Available Start: 11-15-2024 End: 11-15-2024 Refill Barbara Lucero RN [facility] Comment on above: 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 Start: 11-14-2024 End: 11-14-2024 Clinisync Result Encounter Agusto Cainz GRANULATING MACHINE OPERATOR Work Phone: [facility] External Department Unsolicited Start: 11-14-2024 End: 11-14-2024 Clinisync Result Encounter Agusto Caniz GRANULATING MACHINE OPERATOR Work Phone: [facility] External Department Unsolicited Start: 11-14-2024 End: 11-15-2024 Refill Lila Che RN [facility] Comment on above: 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; Complex regional pain syndrome type 1 of right upper extremity Start: 11-11-2024 End: 11-11-2024 Orders Only Agusto Aysha GRANULATING MACHINE OPERATOR Work Phone: [facility] Comment on above: Right foot pain (Radha adama Dx) Start: 10-29-2024 End: 10-29-2024 Refill Agusto Cainz GRANULATING MACHINE OPERATOR Work Phone: [facility] Comment on above: Type 2 diabetes maria m itus with hyperglycemia, with long-term current use of insulin (CMS/[facility]) (Primary Dx) Start: 10-24-2024 End: 10-24-2024 Bamboo flowsheet Agusto Cainz GRANULATING MACHINE OPERATOR Work Phone: [facility] Start: 10-24-2024 End: 10-24-2024 Bamboo flowsheet Agusto Cainz GRANULATING MACHINE OPERATOR Work Phone: [facility] Start: 10-24-2024 End: 10-25-2024 Refill Asia Barreto RN [facility] Comment on above: Complex regional saranya n syndrome type 1 of right upper extremity; Reflex sympathetic dystrophy of right upper extremity Start: 10-10-2024 End: 10-11-2024 Refill Yesenia Burnett RN [facility] Comment on above: 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; Complex regional pain syndrome type 1 of right upper extremity Start: 10-09-2024 End: 10-09-2024 Office outpatient visit 25 minutes Sweta Ch PA-C Work Phone: [facility] Comment on above: Complex regional saranya n syndrome type 1 of right upper extremity (Primary Dx) Start: 10-09-2024 End: 10-09-2024 ambulatory [facility] Start: 09-13-2024 End: 09-13-2024 Refill Barbara Lucero RN [facility] Comment on above: 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 Start: 09-11-2024 End: 09-11-2024 Bamboo flowsheet Agusto Olmstead GRANULATING MACHINE OPERATOR Work Phone: [facility] Start: 09-11-2024 End: 09-11-2024 Bamboo flowsheet Agusto Olmstead GRANULATING MACHINE OPERATOR Work Phone: [facility] Start: 09-11-2024 End: 09-11-2024 Office outpatient visit 25 minutes Agusto Olmstead NP Work Phone: [facility] Comment on above: Type 2 diabetes maria m itus with diabetic neuropathy, with long- term current use of insulin (CMS/HCC) (Primary Dx); Malignant neoplasm of cervix uteri, unspecified (CMS/HCC); Rheumatoid arthritis, unspecified (CMS/HCC); Essential (primary) hypertension (CMS/HCC); Chronic kidney disease, stage 4 (severe) (CMS/HCC); Neurogenic bladder; Type 2 diabetes mellitus with hyperglycemia, with long-term current use of insulin (CMS/HCC); Immunodeficiency due to conditions classified elsewhere ([facility]); 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 ([facility]) Start: 09-11-2024 End: 09-11-2024 ambulatory AGUSTO DUCHOLZ Not Available Start: 09-09-2024 End: 09-09-2024 Telephone encounter Heidy Belcher [facility] Start: 09-06-2024 Non-patient / Non-visit Agusto Ducholz Work Phone: [facility] Work Phone: Start: 09-05-2024 End: 09-08-2024 Evaluation and management of inpatient Agusto Ducholz Work Phone: [facility] Work Phone: Start: 09-04-2024 Non-patient / Non-visit Agusto Ducholz Work Phone: [facility] Work Phone: Start: 09-04-2024 End: 09-07-2024 Clinisync Result Encounter Generic External Data Provider [facility] External Department Unsolicited Start: 09-04-2024 End: 09-07-2024 Clinisync Result Encounter Generic External Data Provider [facility] External Department Unsolicited Start: 09-04-2024 End: 09-04-[address] [facility] Work Phone: Start: 09-04-2024 End: 09-04-2024 Patient encounter procedure [facility] Work Phone: Start: 08-28-2024 End: 08-28-2024 Clinisync Result Encounter Generic External Data Provider [facility] External Department Unsolicited Start: 08-28-2024 End: 08-28-2024 Clinisync Result Encounter Generic External Data Provider [facility] External Department Unsolicited Start: 08-28-2024 Non-patient / Non-visit [facility] Work Phone: Start: 08-27-2024 End: 08-27-2024 Office outpatient visit 25 minutes Agusto Olmstead GRANULATING MACHINE OPERATOR Work Phone: [facility] Comment on above: Essential (primary) hypertension (CMS/HCC) (Primary Dx); Type 2 diabetes mellitus with diabetic neuropathy, with long-term current use of insulin ([facility]); Chronic kidney disease, stage 4 (severe) (CMS/[facility]); Neurogenic bladder; Type 2 diabetes mellitus with hyperglycemia, with long-term current use of insulin ([facility]); Type 2 diabetes mellitus with diabetic neuropathy, unspecified whether oil heaterman insulin use ([facility]); Other chest pain; Continuous leakage of urine Start: 08-27-2024 End: 08-27-2024 Bamboo flowsheet Agusto Olmstead GRANULATING MACHINE OPERATOR Work Phone: [facility] Start: 08-27-2024 End: 08-27-2024 Bamboo flowsheet Agusto Olmstead GRANULATING MACHINE OPERATOR Work Phone: [facility] Start: 08-27-2024 End: 08-27-2024 ambulatory AGUSTO AYSHA Not Available Start: 08-22-2024 End: 08-23-2024 Refill Asia Barreto RN [facility] Comment on above: 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 Start: 08-13-2024 End: 08-13-2024 Orders Only Agusto Olmstead GRANULATING MACHINE OPERATOR Work Phone: [facility] Start: 08-12-2024 Non-patient / Non-visit Agusto Olmstead Work Phone: [facility] Work Phone: Start: 08-08-2024 End: 08-08-2024 Clinisync Result Encounter Agusto Olmstead GRANULATING MACHINE OPERATOR Work Phone: [facility] External Department Unsolicited Start: 08-08-2024 End: 08-08-2024 Clinisync Result Encounter Agusto Olmstead GRANULATING MACHINE OPERATOR Work Phone: [facility] External Department Unsolicited Start: 07-03-2024 End: 07-03-2024 ambulatory SWETA [facility] Start: 06-26-2024 End: 06-26-2024 Telephone encounter Adama Velasco RN Work Phone: Urology Comment on above: Chronic Care Nurse - O ther; Returning Patient's Call Start: 06-11-2024 End: 06-11-2024 Bamboo flowsheet Agusto Olmstead GRANULATING MACHINE OPERATOR Work Phone: [facility] Start: 06-11-2024 End: 06-11-2024 Bamboo flowsheet Agusto Olmstead GRANULATING MACHINE OPERATOR Work Phone: [facility] Start: 06-11-2024 End: 06-11-2024 Office outpatient visit 25 minutes Agusto Olmstead NP Work Phone: [facility] Comment on above: Type 2 diabetes maria m itus with hyperglycemia, with long-term current use of insulin (CMS/[facility]) (Primary Dx); Type 2 diabetes mellitus with [...] diabetes mellitus with diabetic neuropathy, unspecified whether detention insulin use (CMS/HCC); RSD (reflex sympathetic dystrophy); Continuous leakage of urine; 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, left, sequela (CMS/HCC); Skin lesion of face Start: 06-11-2024 End: 06-11-2024 ambulatory AGUSTO OLMSTEAD Not Available Start: 06-05-2024 End: 06-05-2024 ambulatory [facility] Work Phone: Start: 06-05-2024 End: 06-05-2024 Patient encounter procedure [facility] Nephderrell Dailey Work Phone: Start: 05-10-2024 Non-patient / Non-visit [facility] Work Phone: Start: 05-08-2024 End: 05-08-2024 Refill Agusto Aysha GRANULATING MACHINE OPERATOR Work Phone: [facility] Comment on [...] 04-26-2024 End: 04-27-2024 Non-patient / Non-visit [facility] Work Phone: Start: 04-26-2024 End: [...] External Department Unsolicited Start: 04-24-2024 End: 04-24-2024 [facility] Start: 04-24-2024 End: 04-24-2024 ambulatory [facility] Start: 04-18-2024 End: 04-18-2024 Refill Agusto Aicankitz GRANULATING MACHINE OPERATOR Work Phone: [facility] Comment on above: Chronic cough (Prima ry Dx) Start: 04-16-2024 End: 04-16-2024 Office outpatient visit 25 minutes Agusto Olmstead NP Work Phone: [facility] Comment on above: Chronic cough (Prima ry Dx); Type 2 diabetes mellitus with diabetic chronic kidney disease (HCC) ([facility]/HCC); Chronic kidney disease, stage 3b (HCC) ([facility]/HCC); Hyperparathyroidism, unspecified ([facility]/HCC); Rheumatoid arthritis, unspecified ([facility]/HCC); Malignant neoplasm of cervix uteri, unspecified ([facility]); Type 2 diabetes mellitus with hyperglycemia, with long-term current use of insulin ([facility]) Start: 04-16-2024 End: 04-16-2024 ambulatory AGUSTO AYSHA Not Available Start: 04-16-2024 End: 04-16-2024 Bamboo flowsheet Agusto Olmstead GRANULATING MACHINE OPERATOR Work Phone: [facility] Start: 04-16-2024 End: 04-16-2024 Bamboo flowsheet Agusto Olmstead GRANULATING MACHINE OPERATOR Work Phone: [facility] Start: 04-15-2024 End: 04-15-2024 ambulatory [facility] Start: 04-09-2024 End: 04-09-2024 ambulatory CARMENZA ESPINOSA Facility:[facility] Start: 04-09-2024 End: 04-09-2024 Patient encounter procedure Carmenza Espinosa MD Work Phone: Urology Comment on above: Neurogenic bladder ( Primary Dx); BURKE (stress urinary incontinence, female) Start: 04-09-2024 End: 04-09-2024 Telemedicine consultation with patient Carmenza Espinosa MD Work Phone: Urology Start: 04-08-2024 End: 04-08-2024 ambulatory [facility] Start: 03-29-2024 End: 03-29-2024 Nursing evaluation of patient and report [facility] Comment on above: Stress incontinence (Primary Dx); Dysfunctional voiding of urine Start: 03-29-2024 End: 03-29-2024 ambulatory [facility] Facility:[facility] Start: 03-27-2024 ambulatory Nuria R Driss brambilajennifer BRITTNY Work Phone: Pulmonary Medicine Start: 03-26-2024 End: 03-26-2024 ambulatory CARMENZA ESPINOSA Facility:[facility] Start: 03-26-2024 End: 03-26-2024 Patient encounter procedure Carmenza Espinosa MD Work Phone: Urology Comment on above: Retention of urine ( Primary Dx); Screening for genitourinary condition; Type 2 diabetes mellitus with hyperglycemia, with long-term current use of insulin (HCC); BURKE (stress urinary incontinence, female) Start: 02-26-2024 Telephone encounter Flavio negron Start: 02-12-2024 Telephone encounter Vonnie Wilder RN Ur jurgenogy Comment on above: Results - Ct Start: 02-01-2024 End: 02-01-2024 ambulatory [facility] Facility:[facility] Start: 02-01-2024 End: 02-01-2024 Subsequent hospital visit by physician Arrival Time Radiology Work Phone: Radiology Pet CT Comment on above: Other hydronephrosis [N13.39] Start: 01-12-2024 End: 01-12-2024 Patient encounter procedure Taurus Ballard MD Work Phone: Urology Comment on above: Other hydronephrosis (Primary Dx); Screening for genitourinary condition Start: 01-12-2024 End: 01-12-2024 ambulatory TAURUS AUNDREARAFIQ Facility:[facility] Start: 11-02-2023 ambulatory GIANNI-Esteban Noel acility:ALLYN Dailey Start: 10-25-2023 End: 10-26-2023 ambulatory PROMISE ARNOLD Facility: [facility] Start: 10-25-2023 End: 10-25-2023 Patient encounter procedure HEIDY ARNOLD [facility] Start: 10-11-2023 Patient encounter procedure Agsutosahara Olmstead NP Work Phone: [facility] Start: 10-10-2023 ambulatory PA-C HEIDY Noel acility:[facility] [place] Start: 09-28-2023 ambulatory Drew Esqueda Research Coordinator [facility] Provider Adult Comment on above: [facility] IRB# [id number] Start: 09-28-2023 E-mail encounter fro m caregiver Drew Esqueda Research Coordinator [facility] Start: 09-27-2023 Telephone encounter Drew bourne Research Coordinator [facility] Provider Adult Comment on above: Research F/U Start: 09-26-2023 Telephone encounter Drew bourne Research Coordinator [facility] Provider Adult Comment on above: Research F/U Start: 09-12-2023 End: 09-13-2023 ambulatory PA-C HEIDY ARNOLD Facility:[facility] [place] Start: 09-12-2023 End: 09-12-2023 Patient encounter procedure HEIDY ARNOLD [facility] Start: 09-05-2023 End: 09-05-2023 ambulatory Tondra Mapus Other [employer] Other Start: 09-05-2023 Telephone encounter Tondra Mapus [facility] Start: 08-01-2023 End: 08-01-2023 Patient encounter procedure [facility] Nephrology Michael Work Phone: Start: 07-18-2023 End: 07-19-2023 ambulatory PA-C HEIDY ARNOLD Facility:[facility] [place] Start: 07-05-2023 End: 07-05-2023 Orders Only Taurus Ballard MD Work Phone: Urology Comment on above: Kidney cyst, acquire d (Primary Dx) Start: 07-05-2023 Telephone encounter Eli Sprague [facility] Nephrology Start: 06-28-2023 End: 06-29-2023 ambulatory Lisa Olvera Facility:[facility] Start: 06-28-2023 End: 06-28-2023 Patient encounter procedure Lisa Olvera [facility] Start: 06-26-2023 End: 06-26-2023 ambulatory Tondra Mapus Other [employer] Other Start: 06-26-2023 Telephone encounter Tondra Mapus [facility] Start: 06-23-2023 Telephone encounter Heidy salas RN Urology Comment on above: Surgical Followup Start: 06-22-2023 End: 06-23-2023 ambulatory TAURUS BALLARD Facility:[facility] Start: 06-19-2023 ambulatory Taurus newton MD Work Phone: Urology Comment on above: Aislinn combsin g procedure Start: 06-15-2023 Telephone encounter Vonnie Wilder RN Ur ology Comment on above: Pre-Op Teaching Start: 06-12-2023 End: 06-12-2023 ambulatory Tondra Mapus Other [employer] Other Start: 06-12-2023 Telephone encounter Tondra Mapus [facility] Start: 06-08-2023 End: 06-08-2023 Lab Drop off HEIDY ARNOLD [facility] Start: 06-08-2023 End: 06-08-2023 Patient encounter procedure AGUSTO OLMSTEAD [facility] Start: 06-08-2023 (PUMP/CGM) Pump / Sensor Tondra Mapus [facility] Start: 06-08-2023 End: 06-09-2023 ambulatory PROMISE ARNOLD [facility] [employer] Other Start: 05-22-2023 End: 05-23-2023 ambulatory Lisa M. Lue Facility[facility] Start: 05-22-2023 End: 05-22-2023 Patient encounter procedure Lisa Olvera [facility] Start: 05-18-2023 End: 05-18-2023 ambulatory Sara Augustine Other [facility] [employer] Other Start: 05-18-2023 [facility] visit new patient Sara Augustine [facility] Start: 05-18-2023 Telephone encounter Taurus rees MD Work Phone: Urology Comment on above: Follow Up Start: 05-17-2023 End: 05-17-2023 ambulatory TAURUS BALLARD Facility:[facility] Start: 05-11-2023 End: 2023 ambulatory GIANNI-C HEIDY ARNOLD Facility[facility] Start: 05-11-2023 End: 05-11-2023 Lab Drop off HEIDY ARNOLD [facility] Start: 05-03-2023 End: 05-04-2023 ambulatory Lisa M. Lue Facility:[facility] Start: 04-18-2023 End: 04-19-2023 ambulatory PA-C HEIDY ARNOLD Facility[facility] Start: 04-18-2023 End: 04-19-2023 ambulatory Lisa M. Lue Facility:[facility] Start: 04-18-2023 End: 04-18-2023 Lab Drop off HEIDY ARNOLD [facility] Start: 04-18-2023 End: 04-18-2023 Patient encounter procedure Lisa Olvera [facility] Start: 04-04-2023 End: 04-04-2023 ambulatory Brigette Wesley Other [employer] Other Start: 04-04-2023 Telephone encounter Brigette Wesley [facility] Start: 02-22-2023 End: 02-23-2023 ambulatory Lisa Olvera Facility:[facility] Start: 02-22-2023 End: 02-22-2023 Patient encounter procedure Lisa Olvera [facility] Start: 01-09-2023 End: 01-09-2023 ambulatory Aziz Bakhous Other [employer] Other Start: 01-09-2023 Telephone encounter Aziz Bakhous [facility] Start: 01-03-2023 End: 01-04-2023 ambulatory E BUSINESS CONSULTANT AGUSTO AICHHOLZ Facility:[facility] Start: 12-28-2022 End: 12-29-2022 ambulatory E BUSINESS CONSULTANT AGUSTO AICHHOLZ Facility:[facility] Start: 12-27-2022 End: 12-27-2022 ambulatory Aziz Bakhous Other [employer] Other Start: 12-27-2022 Office outpatient ne w 30 minutes Aziz Bakhous [facility] Start: 12-15-2022 End: 12-16-2022 ambulatory E BUSINESS CONSULTANT AGUSTO AICHHOLZ Facility:[facility] Start: 12-14-2022 End: 12-15-2022 ambulatory RAMON ENRIQUE Facility:[facility] Start: 10-27-2022 End: 10-28-2022 ambulatory E BUSINESS CONSULTANT AGUSTO AICHHOLZ Facility:[facility] Start: 10-24-2022 End: 10-25-2022 ambulatory E BUSINESS CONSULTANT AGUSTO AICHHOLZ Facility:[facility] Start: 10-12-2022 End: 10-13-2022 ambulatory E BUSINESS CONSULTANT AGUSTO AICHHOLZ Facility:[facility] Start: 10-05-2022 End: 10-06-2022 ambulatory E BUSINESS CONSULTANT AGUSTO AICHHOLZ Facility:[facility] Start: 09-29-2022 End: 09-30-2022 ambulatory E BUSINESS CONSULTANT AGUSTO AICHHOLZ Facility:[facility] Start: 09-21-2022 End: 09-22-2022 ambulatory PETER D HIGHLANDER Facility:[facility] Start: 09-21-2022 End: 09-21-2022 Patient encounter procedure Lisa Olvera [facility] Start: 09-15-2022 End: 09-16-2022 ambulatory E BUSINESS CONSULTANT AGUSTO AICHHOLZ Facility:[facility] Start: 09-13-2022 End: 09-13-2022 Patient encounter procedure HEIDY ARNOLD [facility] Start: 09-08-2022 End: 09-09-2022 ambulatory E BUSINESS CONSULTANT AGUSTO AICHHOLZ Facility:[facility] Start: 09-02-2022 End: 09-03-2022 ambulatory PETER D HIGHLANDER Facility:[facility] Start: 08-26-2022 End: 08-27-2022 ambulatory PETER D HIGHLANDER Facility:[facility] Start: 08-09-2022 End: 08-10-2022 ambulatory PETER D HIGHLANDER Facility:[facility] Start: 08-05-2022 End: 08-06-2022 ambulatory PETER D HIGHLANDER Facility:[facility] Start: 08-04-2022 End: 08-05-2022 ambulatory PETER D HIGHLANDER Facility:[facility] Start: 08-03-2022 End: 08-04-2022 ambulatory E BUSINESS CONSULTANT AGUSTO AICHHOLZ Facility:[facility] Start: 08-02-2022 End: 08-03-2022 ambulatory E BUSINESS CONSULTANT AGUSTO AICHHOLZ Facility:[facility] Start: 08-01-2022 End: 08-02-2022 ambulatory E BUSINESS CONSULTANT AGUSTO AICHHOLZ Facility:[facility] Start: 07-19-2022 End: 07-20-2022 ambulatory E BUSINESS CONSULTANT AGUSTO AICHHOLZ Facility:[facility] Start: 07-08-2022 End: 07-09-2022 ambulatory E BUSINESS CONSULTANT AGUSTO AICHHOLZ Facility:[facility] Start: 07-06-2022 End: 07-07-2022 ambulatory E BUSINESS CONSULTANT AGUSTO AYSHA Facility:[facility] Start: 07-05-2022 End: 07-06-[address] [facility] Facility:[facility] Start: 06-28-2022 End: 06-29-[address] [facility] Facility:H1 Start: 06-24-2022 End: 06-25-[address] [facility] Facility:H1 Start: 06-11-2022 End: 06-16-2022 Evaluation and management of inpatient DR NENO VIEIRA . Facility:H1 Start: 06-02-2022 End: 06-02-[address] NELL PALMA Facility:H1 Start: 06-02-2022 End: 06-03-[address] [facility] Facility:H1 Start: 2022 End: 2022 ambulatory RAQUEL SABA . Facility:H1 Start: 01-27-2021 End: 01-27-2021 Telephone encounter Barb Silva MD Work Phone: Nephrology Comment on above: Appointment Procedures Date Procedure Procedure Detail Performing Clinician Start: 05-20-2025 CT of abdomen and pe lvis without contrast PHYSICIAN NO FAMILY Start: 05-20-2025 CT of chest without contrast PHYSICIAN NO FAMILY Start: 05-20-2025 CT of head without contrast PHYSICIAN NO FAMILY Start: 05-20-2025 Plain chest X-ray PHYSI BRAVO NO FAMILY Start: 03-12-2025 UNLISTED LAB TEST Sweta Ch PA-C Work Phone: Start: 02-11-2025 Urine culture PHYSICIAN NO FAMILY Start: 01-30-2025 ALL CBC WITH AUTO DIFF Agusto Olmstead GRANULATING MACHINE OPERATOR Work Phone: Start: 01-27-2025 Urnls dip stick/tabl et rgnt non-auto w/o micrscp Agusto Olmstead GRANULATING MACHINE OPERATOR Work Phone: Start: 11-25-2024 Radionuclide myocard ial perfusion stress study Agusto Olmstead Work Phone: Start: 11-24-2024 X-ray of right foot Maria Luisa Olmstead Work Phone: Start: 11-23-2024 X-ray of right foot Maria Luisa Olmstead Work Phone: Start: 11-23-2024 CT of abdomen and pe lvis without contrast Agusto Olmstead Work Phone: Start: 11-23-2024 Plain chest X-ray Agusto Olmstead Work Phone: Start: 11-23-2024 Urine culture Agusto flower Work Phone: Start: 11-21-2024 ALL CBC WITH AUTO DIFF Agusto Olmstead GRANULATING MACHINE OPERATOR Work Phone: Start: 11-21-2024 ECG 12-LEAD Generic Ex ternal Data Provider Start: 11-18-2024 Hemoglobin glycosyla madhavi a1c Agusto Olmstead GRANULATING MACHINE OPERATOR Work Phone: Start: 11-14-2024 XR FOOT RT MIN 3V Agusto Olmstead GRANULATING MACHINE OPERATOR Work Phone: Start: 09-06-2024 Ultrasonography of bilateral kidneys Agusto Olmstead Work Phone: Start: 09-05-2024 Urine culture Agusto flower Work Phone: Start: 09-04-2024 Bacteria identified in Urine by Culture Generic External Data Provider Start: 08-28-2024 HMHP CBC WITH PLATEL ET NO DIFFERENTIAL Generic External Data Provider Start: 08-08-2024 MLR HEMOGLOBIN A1C Agusto Olmstead GRANULATING MACHINE OPERATOR Work Phone: Start: 05-01-2024 Urnls dip stick/tabl et rgnt auto w/o microscopy Bulk Order Provider Start: 04-26-2024 BLOOD CULTURE 1 Generic External Data Provider Start: 04-26-2024 BLOOD CULTURE 2 Generic External Data Provider Start: 04-25-2024 Bacteria identified in Urine by Culture Generic External Data Provider Start: 04-17-2024 Mammography Agusto hills GRANULATING MACHINE OPERATOR Work Phone: Start: 03-26-2024 Urnls dip [...] H/O: hysterectomy History of hysterectomy Agusto Olmstead GRANULATING MACHINE OPERATOR Work Phone: Start: 06-22-2023 Laparoscopic partial nephrectomy of left kidney HEIDY ARNOLD Start: 05-22-2023 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 Ricardo Rocha Start: 06-13-2022 Detachment at Left F oot, Partial 1st Ray, Open Approach KIARA OLMSTEAD Start: 06-13-2022 Microscopic examinat ion of blood, culture KIARA OLMSTEAD Comment on above: Performed By: #### B [email or web address] ####[facility] [id number] [place], [place] [id number]. Ricardo Rocha Start: 06-11-2022 Detachment at Left [...] Start: 10-02-2026 Glaucoma screening Diabetes: Retinopathy Screening [facility] Start: 04-28-2026 Screening for malignant neoplasm of colon [facility] Start: 03-12-2026 Adult BMI Screening Adult BMI Screening [facility] Start: 03-12-2026 Tobacco Screening Tobacco Screening [facility] Start: 02-28-2026 Tobacco Screening Tobacco Screening [facility] Start: 01-08-2026 Adult BMI Screening Adult BMI Screening [facility] Start: 01-08-2026 Tobacco Screening Tobacco Screening [facility] Start: 12-25-2025 Glaucoma screening Diabetes: Retinopathy Screening [facility] Start: 11-18-2025 Medicare Annual Wellness (AWV) Medicare Annual Wellness (AWV) [facility] Start: 11-07-2025 Glaucoma screening Diabetes: Retinopathy Screening [facility] Start: 10-24-2025 Medicare Annual Wellness (AWV) Medicare Annual Wellness (AWV) [facility] Start: 10-09-2025 Tobacco Screening Tobacco Screening [facility] Start: 08-28-2025 Urine screening for protein Diabetes: Urine Protein Screening [facility] Start: 07-03-2025 Adult BMI Screening Adult BMI Screening [facility] Start: 07-03-2025 Tobacco Screening Tobacco Screening [facility] Start: 06-18-2025 End: 06-18-2025 Patient encounter procedure 06/18/2025 12:15 PM EDT Office Visit [facility] [address] [place] [phone] Sweta Ch PA-C [address] [place], [place] [phone] [facility] Start: 06-02-2025 Urine culture [facility] Start: 06-02-2025 Bacteria identified in Urine by Culture Urine Culture [facility] Start: 05-26-2025 [facility] Start: 05-25-2025 [facility] Start: 05-24-2025 [facility] Start: 05-23-2025 [facility] Start: 05-22-2025 [facility] Start: 05-21-2025 Referral to vascular surgeon [facility] Start: 05-21-2025 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 [facility] Start: 05-21-2025 [facility] Start: 05-20-2025 Sleep disorder assessment [facility] Start: 05-20-2025 Physical therapy procedure [facility] Start: 05-20-2025 Referral to occupational therapist [facility] Start: 05-20-2025 [facility] Start: 05-20-2025 Hospital admission [facility] Start: 05-20-2025 Urine culture [facility] Start: 05-20-2025 Bacteria identified in Urine by Culture Urine Culture [facility] Start: 05-14-2025 Patient referral [facility] Work Phone: Start: 04-21-2025 COVID-19 Vaccine ( season) COVID-19 Vaccine ( season) [facility] Start: 04-21-2025 Influenza vaccination Influenza Vaccine [facility] Start: 04-17-2025 Screening for malignant neoplasm of breast [facility] Start: 03-12-2025 End: 03-12-2025 Patient encounter procedure 03/12/2025 1:00 PM EDT Office Visit [facility] [address] [place] [address] Sweta Ch PA-C [address] [place] [address] [facility] Start: 02-28-2025 End: 02-28-2025 Admission to same day surgery center 02/28/2025 3:12 PM EDT - 02/28/2025 3:21 PM EDT Surgery [facility] [address] [place] [phone] Zackery Miranda MD [address] [place] [address] INJECTION BLOCK NERVE STELLATE GANGLION NECK [14076 (CPT )] [facility] Comment on above: INJECTION BLOCK NERVE STELLATE GANGLION NECK [26566 (CPT )] Start: 02-28-2025 End: 02-28-2025 Njx anes stellate ganglion crv sympathetic INJECTION BLOCK NERVE STELLATE GANGLION NECK Reflex sympathetic dystrophy of right upper extremity 02/28/2025 3:12 PM EDT [facility] Start: 02-28-2025 Subsequent hospital visit by physician 02/28/2025 3:12 PM EDT Hospital Encounter [facility] [address] [place] [phone] Zackery Miranda MD [address] [place] [address] [facility] Start: 02-26-2025 End: 02-26-2025 Patient encounter procedure 02/26/2025 11:15 AM EDT Office Visit [facility] [address] [place] [phone] Sweta Ch PA-C [address] [place] [address] [facility] Start: 02-18-2025 End: 02-18-2025 Patient encounter procedure 02/18/2025 1:40 PM EDT Office Visit [facility] [address] [place] [address] Agusto Olmstead, LUIS [address] [place] [address] [facility] Start: 02-17-2025 Hemoglobin A1c measurement Diabetes: Hemoglobin A1C [facility] Start: 02-11-2025 Urine culture [facility] Start: 02-11-2025 Bacteria identified in Urine by Culture Urine Culture [facility] Start: 02-07-2025 End: 02-07-2025 Admission to same day surgery center 02/07/2025 12:30 PM EDT - 02/07/2025 12:39 PM EDT Surgery [facility] [address] [facility] [place] [phone] Zackery Miranda MD [address] [place] [address] INJECTION BLOCK NERVE STELLATE GANGLION NECK [46384 (CPT )] [facility] Comment on above: INJECTION BLOCK NERVE STELLATE GANGLION NECK [89235 (CPT )] Start: 02-07-2025 End: 02-07-2025 Njx anes stellate ganglion crv sympathetic INJECTION BLOCK NERVE STELLATE GANGLION NECK Reflex sympathetic dystrophy of right upper extremity 02/07/2025 12:30 PM EDT [facility] Start: 02-07-2025 Subsequent hospital visit by physician 02/07/2025 12:30 PM EDT Hospital Encounter [facility] [address] [place] [phone] Zackery Miranda MD [address] [place], [place] [phone] [facility] Start: 01-31-2025 Creatinine measurement Serum Creatinine [facility] Start: 01-27-2025 End: 01-27-2025 Patient encounter procedure 01/27/2025 2:40 PM EDT Office Visit [facility] [address] [place] [address] Agusto Olmstead NP [address] [place] [address] Arrived [facility] Comment on above: Arrived Start: 01-27-2025 End: 01-27-2026 25-hydroxyvitamin D3 [Mass/volume] in Serum or Plasma Vitamin D 25 hydroxy Lab Routine Chronic kidney disease, stage 4 (severe) (CMS/HCC) Vitamin D deficiency Expected: 01/27/2025 (Approximate), Expires: 01/27/2026 [facility] Comment on above: Expected: 01/27/2025 (Approximate), Expi res: 01/27/2026 Start: 01-27-2025 End: 01-27-2026 Bacteria identified in Urine by Culture Urine culture (clean catch) Microbiology Routine Urinary tract infection symptoms Expected: 01/27/2025 (Approximate), Expires: 01/27/2026 [facility] Work Phone: Comment on above: Expected: 01/27/2025 (Approximate), Expi res: 01/27/2026 Start: 01-27-2025 End: 01-27-2026 Basic metabolic 1998 panel - Serum or Plasma Basic metabolic panel Lab Routine Mixed hyperlipidemia (CMS/HCC) Essential (primary) hypertension (CMS/HCC) Type 2 diabetes mellitus with diabetic neuropathy, with long-term current use of insulin (CMS/HCC) Chronic kidney disease, stage 4 (severe) (CMS/HCC) 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 Type 2 diabetes mellitus with hyperglycemia, with long-term current use of insulin (CMS/HCC) Vitamin D deficiency Expected: 01/27/2025 (Approximate), Expires: 01/27/2026 [facility] Comment on above: Expected: 01/27/2025 (Approximate), Expi res: 01/27/2026 Start: 01-27-2025 End: 01-27-2026 CBC W Auto Differential panel - Blood CBC and differential Lab Routine Chronic kidney disease, stage 4 (severe) (CMS/HCC) Type 2 diabetes mellitus with hyperglycemia, with long-term current use of insulin (CMS/HCC) Fatigue, unspecified type Expected: 01/27/2025 (Approximate), Expires: 01/27/2026 [facility] Comment on above: Expected: 01/27/2025 (Approximate), Expi res: 01/27/2026 Start: 01-27-2025 End: 01-27-2026 Cobalamin (Vitamin B12) [Mass/volume] in Serum or Plasma Vitamin B12 Lab Routine Fatigue, unspecified type Expected: 01/27/2025 (Approximate), Expires: 01/27/2026 [facility] Comment on above: Expected: 01/27/2025 (Approximate), Expi res: 01/27/2026 Start: 01-27-2025 End: 01-27-2026 Ferritin [Mass/volume] in Serum or Plasma Ferritin Lab Routine Fatigue, unspecified type Expected: 01/27/2025 (Approximate), Expires: 01/27/2026 [facility] Comment on above: Expected: 01/27/2025 (Approximate), Expi res: 01/27/2026 Start: 01-27-2025 End: 01-27-2026 Folate [Mass/volume] in Serum or Plasma Folate Lab Routine Fatigue, unspecified type Expected: 01/27/2025 (Approximate), Expires: 01/27/2026 [facility] Comment on above: Expected: 01/27/2025 (Approximate), Expi res: 01/27/2026 Start: 01-27-2025 End: 01-27-2026 Hepatic function 2000 panel - Serum or Plasma Hepatic function panel Lab Routine Essential (primary) hypertension (CMS/HCC) Chronic kidney disease, stage 4 (severe) (CMS/HCC) Fatigue, unspecified type Expected: 01/27/2025 (Approximate), Expires: 01/27/2026 [facility] Comment on above: Expected: 01/27/2025 (Approximate), [...] Routine Chronic kidney disease, stage 4 (severe) ([facility]) Expected: 01/27/2025 (Approximate), Expires: 01/27/2026 [facility] Comment on above: Expected: 01/27/2025 (Approximate), Expi res: 01/27/2026 Start: 01-27-2025 End: 01-27-2026 Phosphate [Moles/volume] in Serum or Plasma Phosphorus Lab Routine Chronic kidney disease, stage 4 (severe) ([facility]) Expected: 01/27/2025 (Approximate), Expires: 01/27/2026 [facility] [...] 01/21/2025 2:40 PM EDT Office Visit [facility] [address] [place] [address] Agusto Olmstead, GRANULATING MACHINE OPERATOR [address] [place] [phone] [facility] Start: 01-10-2025 Pneumococcal Vaccine: 65+ Years (1 of 2 - PCV) Pneumococcal Vaccine: 65+ Years (1 of 2 - PCV) [facility] Comment on above: Postponed from 1964 (Patient Refus ed) Postponed from 05/12 (Patient Refused) Start: 01-08-2025 End: 01-08-2025 Patient encounter procedure 01/08/2025 12:15 PM EDT Office Visit [facility] [address] [place] [phone] Sweta Ch, PA-C [address] [facility] [place] [address] [facility] Start: 12-12-2024 End: 12-12-2024 Patient encounter procedure 12/12/2024 3:20 PM EDT Office Visit [facility] [address] [place] [phone] Agusto Olmstead, GRANULATING MACHINE OPERATOR [address] [place] [address] [facility] Start: 12-05-2024 End: 12-05-2024 Patient encounter procedure 12/05/2024 1:00 PM EDT Office Visit [facility] [address] [facility] [address] [place] [phone] Cory Angeles, DPAshok [address] [facility] [address] [place] [address] [facility] Start: 12-04-2024 End: 12-04-2025 Basic metabolic 1998 panel - Serum or Plasma Basic metabolic panel Lab Routine Chronic kidney disease, stage 4 (severe) (CMS/HCC) Expected: 12/04/2024 (Approximate), Expires: 12/04/2025 [facility] Work Phone: Comment on above: Expected: 12/04/2024 (Approximate), Expi res: 12/04/2025 Start: 12-04-2024 End: 12-04-2025 CBC W Auto Differential panel - Blood CBC and differential Lab Routine Chronic kidney disease, stage 4 (severe) (CMS/HCC) Expected: 12/04/2024 (Approximate), Expires: 12/04/2025 [facility] Comment on above: Expected: 12/04/2024 (Approximate), Expi res: 12/04/2025 Start: 12-04-2024 End: 12-04-2024 Patient encounter procedure 12/04/2024 11:00 AM EDT Office Visit [facility] [address] [place] [address] Agusto Olmsteda, LUIS [address] [place] [address] Chronic kidney disease, stage 4 (severe) (CMS/HCC) (Primary Dx); Essential (primary) hypertension (CMS/HCC) [facility] Comment on above: Chronic kidney disease, stage 4 (severe) (CMS/HCC) (Primary Dx); Essential (primary) hypertension (CMS/HCC) Start: 11-26-2024 [facility] Start: 11-24-2024 Comprehensive metabolic 2000 panel - Serum or Plasma [facility] Start: 11-24-2024 End: 11-24-2024 [facility] Start: 11-23-2024 [facility] Start: 11-23-2024 Referral to civil engineering assistant [facility] Start: 11-23-2024 Physical therapy procedure [facility] Start: 11-23-2024 Referral to occupational therapist [facility] Start: 11-23-2024 Referral to installation manager [facility] Start: 11-23-2024 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 [facility] Start: 11-23-2024 X-ray of right foot XR foot RT 2V [facility] Start: 11-23-2024 XR Foot - right 2 Views [facility] Start: 11-23-2024 Hospital admission [facility] Start: 11-23-2024 Urine culture [facility] Start: 11-23-2024 Bacteria identified in Urine by Culture Urine Culture [facility] Start: 11-23-2024 Excision of Right Foot Subcutaneous Tissue and Fascia, Open Approach Excision of Right Foot Subcutaneous Tissue and Fascia, Open Approach [facility] Start: 11-18-2024 End: 11-18-2025 Basic metabolic 1998 panel - Serum or Plasma Basic metabolic panel Lab Routine Essential (primary) hypertension ([facility]) Chronic kidney disease, stage 4 (severe) ([facility]) Type 2 diabetes mellitus with hyperglycemia, with long-term current use of insulin ([facility]) Expected: 11/18/2024 (Approximate), Expires: 11/18/2025 [facility] Work Phone: Comment on above: Expected: 11/18/2024 (Approximate), Expi res: 11/18/2025 Start: 11-18-2024 End: 11-18-2025 CBC W Auto Differential panel - Blood CBC and differential Lab Routine Chronic kidney disease, stage 4 (severe) ([facility]/HCC) Expected: 11/18/2024 (Approximate), Expires: 11/18/2025 [facility] Comment on above: Expected: 11/18/2024 (Approximate), Expi res: 11/18/2025 Start: 11-18-2024 End: 11-18-2025 Iron and Iron binding capacity panel - Serum or Plasma Iron level Lab Routine Chronic kidney disease, stage 4 (severe) ([facility]/HCC) Expected: 11/18/2024 (Approximate), Expires: 11/18/2025 [facility] Comment on above: Expected: 11/18/2024 (Approximate), Expi res: 11/18/2025 Start: 11-18-2024 End: 11-18-2024 Patient encounter procedure [facility] Comment on above: RSD (reflex sympathetic dystrophy) (Prim hussain Dx); Type 2 diabetes mellitus with diabetic neuropathy, with long-term current use of insulin (CMS/HCC); Essential (primary) hypertension (CMS/HCC); Chronic kidney disease, stage 4 (severe) (CMS/HCC) ; Type 2 diabetes mellitus with hyperglycemia, with long-term current use of insulin (CMS/HCC); 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 (CMS/HCC); Non compliance w medication regimen; Encounter for subsequent annual wellness visit (AWV) in Medicare patient Start: 11-11-2024 End: 11-11-2025 XR Foot - right 3 Views XR foot 3+ views right Imaging Routine Right foot pain Expected: 11/11/2024 (Approximate), Expires: 11/11/2025 [facility] Work Phone: Comment on above: Expected: 11/11/2024 (Approximate), Expi res: 11/11/2025 Start: 11-06-2024 Hemoglobin A1c measurement Diabetes: Hemoglobin A1C [facility] Start: 11-06-2024 End: 11-06-2024 Patient encounter procedure 11/06/2024 10:30 AM EDT Office Visit [facility] [address] [place] [address] Agusto Olmstead NP [address] [place] [phone] [facility] Start: 10-24-2024 End: 10-24-2024 Patient encounter procedure 10/24/2024 2:20 PM EST Office Visit [facility] [address] [place] [address] Agusto Olmstead NP [address] [place] [phone] Type 2 diabetes mellitus with diabetic neuropathy, with long-term current use of insulin (CMS/HCC) (Primary Dx); Essential (primary) hypertension (CMS/HCC); Chronic kidney disease, stage 4 (severe) (CMS/HCC); Type 2 diabetes mellitus with hyperglycemia, with long-term current use of insulin ([facility]) [facility] Comment on above: Type 2 diabetes mellitus with diabetic n europathy, with long-term current use of insulin ([facility]) (Primary Dx); Essential (primary) hypertension ([facility]); Chronic kidney disease, stage 4 (severe) ([facility]); Type 2 diabetes mellitus with hyperglycemia, with long-term current use of insulin ([facility]/HCC) Start: 10-23-2024 End: 10-23-2024 Patient encounter procedure 10/23/2024 2:00 PM EST Office Visit [facility] [address] [place] [address] Agusto Olmstead NP [address] [place] [address] [facility] Start: 10-23-2024 Urine screening for protein Diabetes: Urine Protein Screening [facility] Start: 10-11-2024 Medicare Annual Wellness (AWV) Medicare Annual Wellness (AWV) [facility] Start: 10-09-2024 End: 10-09-2024 Patient encounter procedure 10/09/2024 11:15 AM EST Office Visit [facility] [address] [place] [address] Sweta Ch, PROMISE [address] [facility] [place], [place] [phone] [facility] Start: 09-15-2024 [facility] Start: 09-14-2024 [facility] Start: 09-13-2024 [facility] Start: 09-12-2024 [facility] Start: 09-11-2024 End: 09-11-2024 Patient encounter procedure [facility] Comment on above: Malignant neoplasm of cervix uteri, unsp ecified ([facility]) (Primary Dx); Rheumatoid arthritis, unspecified ([facility]); Type 2 diabetes mellitus with diabetic neuropathy, with long-term current use of insulin ([facility]); Essential (primary) hypertension ([facility]); Chronic kidney disease, stage 4 (severe) ([facility]); Neurogenic bladder; Type 2 diabetes mellitus with hyperglycemia, with long-term current use of insulin ([facility]); Immunodeficiency due to conditions classified elsewhere ([facility]); USP (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 ([facility]) Start: 09-11-2024 [facility] Start: 09-10-2024 [facility] Start: 09-09-2024 Comprehensive metabolic 1999 panel - Serum or Plasma [facility] Start: 09-09-2024 [facility] Start: 09-08-2024 Comprehensive metabolic 1999 panel - Serum or Plasma [facility] Start: 09-08-2024 End: 09-08-2024 [facility] Start: 09-07-2024 Referral to urologist [facility] Start: 09-07-2024 Comprehensive metabolic 1999 panel - Serum or Plasma [facility] Start: 09-07-2024 [facility] Start: 09-06-2024 [facility] Start: 09-05-2024 Hospital admission [facility] Start: 09-05-2024 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 [facility] Start: 09-05-2024 [facility] Start: 09-05-2024 Urine culture [facility] Start: 09-05-2024 Bacteria identified in Urine by Culture Urine Culture [facility] Start: 09-03-2024 Complete blood count Hemoglobin/Hematocrit [facility] Start: 09-03-2024 Creatinine measurement Serum Creatinine [facility] Start: 08-27-2024 End: 08-27-2024 Patient encounter procedure 08/27/2024 2:20 PM EST Office Visit [facility] [address] [place] [phone] Agusto Olmstead NP [address] [place] [phone] Arrived [facility] Comment on above: Arrived Start: 08-27-2024 End: 08-27-2025 Basic metabolic 1998 panel - Serum or Plasma Basic metabolic panel Lab Routine Type 2 diabetes mellitus with diabetic neuropathy, with long-term current use of insulin ([facility]) Expected: 08/27/2024 (Approximate), Expires: 08/27/2025 [facility] Healthcare Work Phone: Comment on above: Expected: 08/27/2024 (Approximate), Expi res: 08/27/2025 Start: 08-27-2024 End: 08-27-2024 Patient encounter procedure 08/27/2024 11:30 AM EST Office Visit [facility] [address] [place] [address] Agusto Olmstead NP [address] [place] [phone] [facility] Start: 06-24-2024 End: 06-24-2024 Patient encounter procedure 06/24/2024 11:00 AM EST Office Visit [facility] [address] [place] [address] Agusto Olmstead NP [address] [place] [phone] [facility] Start: 06-23-2024 Hemoglobin/Hematocrit Hemoglobin/Hematocrit [facility] Start: 06-23-2024 Serum Creatinine Serum Creatinine [facility] Start: 06-11-2024 End: 06-11-2025 Basic metabolic 1997 panel - Serum or Plasma Basic metabolic panel Lab Routine Type 2 diabetes mellitus with hyperglycemia, with long-term current use of insulin ([facility]) Expected: 06/11/2024 (Approximate), Expires: 06/11/2025 [facility] Work Phone: Comment on above: Expected: 06/11/2024 (Approximate), Expi res: 06/11/2025 Start: 06-11-2024 End: 06-11-2025 Hemoglobin A1c/Hemoglobin.total in Blood Hemoglobin A1c Lab Routine Type 2 diabetes mellitus with hyperglycemia, with long-term current use of insulin (CMS/HCC) Expected: 06/11/2024 (Approximate), Expires: 06/11/2025 [facility] Comment on above: Expected: 06/11/2024 (Approximate), Expi res: 06/11/2025 Start: 06-11-2024 End: 06-11-2024 Patient encounter procedure 06/11/2024 11:30 AM EDT Office Visit [facility] [address] [place] [address] Agusto Olmstead NP [address] [place] [phone] Type 2 diabetes mellitus with diabetic chronic kidney disease (CMS/HCC); Chronic kidney disease, stage 3b (HCC) (CMS/HCC); Hyperparathyroidism, unspecified (CMS/HCC); Malignant neoplasm of cervix uteri, unspecified (CMS/HCC); Rheumatoid arthritis, unspecified (CMS/HCC) [facility] Comment on above: Type 2 diabetes mellitus with diabetic c hronic kidney disease (CMS/HCC); Chronic kidney disease, stage 3b (HCC) (CMS/HCC); Hyperparathyroidism, unspecified (CMS/HCC); Malignant neoplasm of cervix uteri, unspecified (CMS/HCC); Rheumatoid arthritis, unspecified (CMS/HCC) Start: 06-06-2024 Hemoglobin/Hematocrit Hemoglobin/Hematocrit [facility] Start: 06-06-2024 Serum Creatinine Serum Creatinine [facility] Start: 06-04-2024 Hemoglobin A1c measurement Diabetes: Hemoglobin A1C [facility] Start: 05-28-2024 End: 05-28-2024 Patient encounter procedure 05/28/2024 1:20 PM EDT Office Visit [facility] [address] [place] [address] Agusto Olmstead NP [address] [place] [phone] [facility] Start: 05-10-2024 End: 05-10-2024 ambulatory 05/10/2024 11:30 AM EDT [facility] [address] [address] Juanito Barnard MD [address] [place] [address] add on per staff message Urology Comment on above: add on per staff message Start: 05-01-2024 End: 07-31-2024 Basic metabolic 2000 panel - Serum or Plasma BASIC METABOLIC PANEL Lab Routine Stage 3b chronic kidney disease (HCC) Expected: 05/01/2024, Expires: 07/31/2024 [facility] Work Phone: Comment on above: Expected: 05/01/2024, Expires: 4 Start: 05-01-2024 End: 07-31-2024 CYSTATIN C CYSTATIN C Lab Routine Stage 3b chronic kidney disease (HCC) Expected: 05/01/2024, Expires: 07/31/2024 [facility] Comment on above: Expected: 05/01/2024, Expires: 4 Start: 05-01-2024 End: 05-01-2024 Patient encounter procedure 05/01/2024 10:00 AM EDT Office Visit Urology [address] [address] Juanito Barnard MD [address] [place] [address] discuss bladder augment per Dr. Espinosa Urology Comment on above: discuss bladder augment per Dr. Espinosa Start: 04-21-2024 Covid-19 Vaccine ( season) Covid-19 Vaccine () [facility] Start: 04-21-2024 Covid-19 Vaccine ( season) Covid-19 Vaccine ( season) [facility] Start: 04-21-2024 Influenza vaccination [facility] Start: 04-16-2024 End: 04-16-2024 Patient encounter procedure 04/16/2024 2:20 PM EDT Office Visit [facility] [address] [place] [address] Agusto Olmstead, LUIS [address] [place] [address] Type 2 diabetes mellitus with diabetic chronic kidney disease (HCC) (CMS/HCC); Chronic kidney disease, stage 3b (HCC) (CMS/HCC); Hyperparathyroidism, unspecified (CMS/HCC); Rheumatoid arthritis, unspecified (CMS/HCC); Malignant neoplasm of cervix uteri, unspecified (CMS/HCC) [facility] Comment on above: Type 2 diabetes mellitus with diabetic c hronic kidney disease (HCC) (CMS/HCC); Chronic kidney disease, stage 3b (HCC) (CMS/HCC); Hyperparathyroidism, unspecified (CMS/HCC); Rheumatoid arthritis, unspecified (CMS/HCC); Malignant neoplasm of cervix uteri, unspecified (CMS/HCC) Start: 04-16-2024 End: 04-16-2025 XR Chest 2 Views XR chest 2 views Imaging Routine Chronic cough Expected: 04/16/2024 (Approximate), Expires: 04/16/2025 [facility] Work Phone: Comment on above: Expected: 04/16/2024 (Approximate), Expi res: 04/16/2025 Start: 04-09-2024 End: 04-09-2024 Follow-up encounter 04/09/2024 9:30 AM EDT [facility] [address] [place] [address] Carmenza Espinosa MD [address] [place] [address] 1 week follow up per dr. espinosa Urology Comment on above: 1 week follow up per dr. espinosa Start: 04-04-2024 Hepatitis B screening Urine Albumin:Creatinine Ratio [facility] Start: 03-29-2024 End: 03-29-2024 Nursing evaluation of patient and report 03/29/2024 3:00 PM EDT Nurse Visit Urology [address] [address] [employer] [address] [place] [address] [R33.9] Retention of urine Urology Comment on above: [R33.9] Retention of urine Start: 03-26-2024 End: 03-26-2024 Patient encounter procedure 03/26/2024 11:00 AM EDT Office Visit Urology [address] [place] [address] Carmenza Espinosa MD [address] [place] [address] Ballard Urology Comment on above: Follow up per Dr. 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 encounter procedure [employer] [facility] Comment on above: Continuous leakage of Urine Start: 01-22-2024 DIABETES SCREEN DIABETES SCREEN [facility] Start: 01-19-2024 End: 04-19-2024 CREATININE BLD CREATININE BLD Lab Routine Other hydronephrosis Expected: 01/19/2024 (Approximate), Expires: 04/19/2024 [facility] Comment on above: Expected: 01/19/2024 (Approximate), Expi res: 04/19/2024 Start: 01-19-2024 End: 02-10-2025 CT Kidney WO and W contrast IV CT UROGRAM WO/W IVCON Radiology Routine Other hydronephrosis Expected: 01/19/2024 (Approximate), Expires: 02/10/2025 [facility] Work Phone: Comment on above: Expected: 01/19/2024 (Approximate), Expi res: 02/10/2025 Start: 12-29-2023 Screening for malignant neoplasm of breast Mammogram [facility] Start: 10-05-2023 End: 01-04-2024 Basic metabolic 2000 panel - Serum or Plasma BASIC METABOLIC PNL Lab Routine Kidney cyst, acquired Expected: 10/05/2023 (Approximate), Expires: 01/04/2024 [facility] Work Phone: Comment on above: Expected: 10/05/2023 (Approximate), Expi res: 01/04/2024 Start: 10-05-2023 End: 08-03-2024 US KIDNEY/BLADDER US KIDNEY/BLADDER Radiology Routine Kidney cyst, acquired Expected: 10/05/2023 (Approximate), Expires: 08/03/2024 [facility] Work Phone: Comment on above: Expected: 10/05/2023 (Approximate), Expi res: 08/03/2024 Start: 09-06-2023 Hemoglobin A1c measurement HbA1C [facility] Start: 09-06-2023 Hemoglobin A1c/Hemoglobin.total in Blood HbA1C [facility] Start: 08-21-2023 Advance Directive Discussion Advance Directive Discussion [facility] Start: 08-21-2023 Behavioral Health Screening Behavioral Health Screening [facility] Start: 08-21-2023 Depression Assessment Depression Assessment [facility] Start: 2023 Advance Directive Discussion Advance Directive Discussion [facility] Start: 2023 Bone Density Screening Bone Density Screening [facility] Start: 2023 Fall Risk Screening Fall Risk Screening [facility] Start: 2023 Screening for osteoporosis Bone Density Screening [facility] Start: 04-21-2023 Covid-19 Vaccine ( season) Covid-19 Vaccine ( season) [facility] Start: 04-21-2023 Covid-19 Vaccine ( season) Covid-19 Vaccine ( season) [facility] Start: 04-21-2023 Influenza vaccination Influenza Vaccine (#1) [facility] Start: 08-21-2022 Depression Assessment Depression Assessment [facility] Start: 04-21-2021 Influenza vaccination INFLUENZA (Season Ended) [facility] Start: 2018 Hepatitis B Vaccine (1 of 3 - Risk 3-dose series) Hepatitis B Vaccine (1 of 3 - Risk 3-dose series) [facility] Start: 2018 RSV Vaccine (1 - 1-dose 60+ series) RSV Vaccine (1 - 1-dose 60+ series) [facility] Start: 2018 RSV Vaccine (1 - Risk 60-74 years 1-dose series) RSV Vaccine (1 - Risk 60-74 years 1-dose series) [facility] Start: 2008 Administration of varicella zoster vaccine Zoster (Shingles) Vaccine (1 of 2) [facility] Start: 2008 Screening for malignant neoplasm of colon [facility] Start: 2008 SHINGRIX VACCINE (1 of 2) SHINGRIX VACCINE (1 of 2) [facility] Start: 2003 Cologuard (FIT-DNA) Cologuard (FIT-DNA) [facility] Start: 2003 Colonoscopy Colonoscopy [facility] Start: 2003 Colorectal Cancer Screening Colorectal Cancer Screening [facility] Start: [address] Colonography [facility] Start: 2003 Fecal Occult Blood Fecal Occult Blood [facility] Start: 2003 LIPID SCREEN LIPID SCREEN [facility] Start: 2003 Screening for malignant neoplasm of colon [facility] Start: 2003 Sigmoidoscopy Sigmoidoscopy [facility] Start: 1998 Mammography [facility] Start: 1998 Screening for malignant neoplasm of breast Mammogram Screening [facility] Start: 1988 HPV TESTING HPV TESTING [facility] Start: 1979 PAP TESTING PAP TESTING [facility] Start: 1977 DTaP,Tdap and Td Vaccines (1 - Tdap) DTaP,Tdap and Td Vaccines (1 - Tdap) [facility] Start: 1977 Pneumococcal Vaccine: 65+ Years (1 of 2 - PCV) Pneumococcal Vaccine: 65+ Years (1 of 2 - PCV) [facility] Start: 1977 Urine microalbumin profile [facility] Start: 1976 Adult BMI Follow Up Plan Adult BMI Follow Up Plan [facility] Start: 1976 Annual PCP Team Chronic Disease Visit Annual PCP Team Chronic Disease Visit [facility] Start: 1976 Anxiety Screening Anxiety Screening [facility] Start: 1976 BP Controlled (<130/80) BP Controlled (<130/80) [facility] Start: 1976 Depression Screening Depression Screening [facility] Start: 1976 Hepatitis B surface antibody level LDL Cholesterol [facility] Start: 1976 HEPATITIS C SCREENING HEPATITIS C SCREENING [facility] Start: 1976 Hepatitis C screening Hepatitis C Screening [facility] Start: 1976 HIV SCREENING HIV SCREENING [facility] Start: 1976 HIV screening HIV Screening [facility] Start: 1976 Spirometry Spirometry [facility] Start: 1970 Adult depression screening assessment DEPRESSION SCREENING [facility] Start: 1970 COVID-19 VACCINE (1) COVID-19 VACCINE (1) [facility] Start: 1968 3 comp foot exam completed Diabetic Foot Exam [facility] Start: 1968 Diabetic foot examination Diabetic Foot Exam [facility] Start: 1968 Glaucoma screening [facility] Start: 1968 Hepatitis B screening Urine Albumin:Creatinine Ratio [facility] Start: 1968 Hepatitis C antibody, confirmatory test Dilated Retinal Exam [facility] Start: 1964 Pneumococcal Vaccine: 65+ (1 - PCV) Pneumococcal Vaccine: 65+ (1 - PCV) [facility] Start: 1964 Pneumococcal Vaccine: 65+ (1 of 2 - PCV) Pneumococcal Vaccine: 65+ (1 of 2 - PCV) [facility] Start: 1958 Screening for malignant neoplasm of colon [facility] Albumin/Globulin ratio [facility] Anion gap measurement [facility] Anion gap measurement [facility] Bacteria identified in Urine by Culture URINE CULTURE, ROUTINE Lab Routine 09/04/2024 6:30 PM EST [facility] Healthcare Basophils [#/volume] in Blood by Automated count [facility] Basophils/100 leukoc ytes in Blood by Automated count [facility] Controlled Substance Monitoring, U Controlled Substance Monitoring, U Lab Routine Complex regional pain syndrome type 1 of right upper extremity 03/12/2025 1:43 PM EDT [facility] Eosinophils/100 leukocytes in Blood by Automated count [facility] Erythrocyte distribu tion width [Ratio] by Automated count [facility] Erythrocytes [#/volu me] in Blood [facility] FLUROURODYNAMICS WITH EMG FLUROU RODYNAMICS WITH EMG Procedures Routine Retention of urine BURKE (stress urinary incontinence, female) Ordered: 03/26/2024 [facility] Work Phone: Comment on above: Ordered: 03/26/2024 Gabapentin, Urine Gabapentin, Ur ine Lab Routine Complex regional pain syndrome type 1 of right upper extremity 03/12/2025 1:43 PM EDT [facility] Globulin [Mass/volum e] in Serum [facility] Hematocrit [Volume Fraction] of Blood [facility] Hemoglobin [Mass/vol ume] in Blood [facility] Leukocytes [#/volume ] corrected for nucleated erythrocytes in Blood by Automated coun [facility] Leukocytes [#/volume ] in Blood [facility] Lymphocytes [#/volum e] in Blood by Automated count [facility] Lymphocytes/100 leukocytes in Blood by Automated count [facility] End: 03-12-2026 [facility] GENERIC ORDER [facility] GENERIC ORDER Lab Routine Complex regional pain syndrome type 1 of right upper extremity 1 Occurrences starting 03/12/2025 until 03/12/2026 [facility] Work Phone: Comment on above: 1 Occurrences starting 03/12/2025 until 03/12/2026 [facility] GENERIC ORDER [facility] GENERIC ORDER Lab Routine Complex regional pain syndrome type 1 of right upper extremity 03/12/2025 1:43 PM EDT [facility] MCH [Entitic mass] b y Automated count [facility] MCHC [Mass/volume] b y Automated count [facility] MCV [Entitic volume] by Automated count [facility] Monocytes [#/volume] in Blood by Automated count [facility] Monocytes/100 leukoc ytes in Blood by Automated count [facility] Neutrophils [#/volum e] in Blood by Automated count [facility] Neutrophils/100 leukocytes in Blood by Automated count [facility] Njx anes stellate ganglion crv sympathetic INJECTION BLOCK NERVE STELLATE GANGLION NECK Reflex sympathetic dystrophy of right upper extremity [place] [facility] Nucleated erythrocyt es [Presence] in Blood by Automated count [facility] Work Phone: Patient referral [facility] Work Phone: Platelet mean volume [Entitic volume] in Blood by Automated count [facility] Platelets [#/volume] in Blood [facility] Renal function 1999 panel - Serum or Plasma [facility] Renal function 1999 panel - Serum or Plasma [facility] Renal function 2000 panel - Serum or Plasma [facility] Renal function 1999 panel - Serum or Plasma [facility] US Upper extremity v ein - bilateral [facility] Immunizations Immunization Date Immunization Notes Care Provider Fa cility 06-23-2022 tuberculin skin test ; purified protein derivative solution, intradermal Agusto Aichholz GRANULATING MACHINE OPERATOR Work Phone: [facility] 06-16-2022 tuberculin skin test ; purified protein derivative solution, intradermal Agusto Aichholz GRANULATING MACHINE OPERATOR Work Phone: [facility] 04-02-2021 SARS-CoV-2 (COVID-19 ) mRNA-1273 vaccine [facility]Y [place] [facility] 03-02-2021 Moderna SARS-CoV-2 Vaccination Agusto Aichholz GRANULATING MACHINE OPERATOR Work Phone: [facility] 12-07-2020 SARS-CoV-2 (COVID-19 ) mRNA-1273 vaccine [facility] [place] [facility] 06-03-2016 influenza virus vaccine, unspecified formulation [facility] [place] 06-03-2016 influenza, seasonal, injectable, preservative free Drew Esqueda Research Coordinator [facility] Payers Date Payer Category Payer Self-pay 2023 Medicare HMO [employer] MEDICARE [id number] 2023 Medicare (Managed Care) [employer] M EDICARE ADVANTAGE [id number] 2023 Private Health Insurance [id number] 2022 Medicare [id number] 2022 Medicare [id number] [id number] .[id number] 2006 Medicare MEDICARE MEDICAR E A [id number] 2006-Present [place], [place] Medicare [id number] 2003 Worker's Comp Other Managed Care [facility] [id number] .[id number] 2003 Unknown [id number] 1959 Medicare [id number] 2.16.840.1.697798.19 1959 Medicare [id number] 1959 Unknown [id number] 1959 Unknown [id number] 1958 Unknown [id number] 2.16.840.1.717399.3.579.2 .593 1958 Unknown [id number] 2.16.840.1.004198.3.579.2 .593 1958 Unknown [id number] 2.16.840.1.964456.3.579.2 .593 1958 Unknown [id number] 2.16.840.1.162800.3.579.2 .593 1958 Unknown [id number] 2.16.840.1.335762.3.579.2 .593 1958 Unknown [id number] 2.16.840.1.346530.3.579.2 .593 1958 Unknown [id number] 2.16.840.1.496356.3.579.2 .593 1958 Unknown [id number] 2.16.840.1.987848.3.579.2 .593 1958 Unknown [id number] 2.16.840.1.835103.3.579.2 .593 1958 Unknown [id number] 2.16.840.1.524874.3.579.2 .593 1958 Unknown [id number] 2.16.840.1.823291.3.579.2 .593 1958 Unknown [id number] 2.16.840.1.720983.3.579.2 .593 1958 Unknown [id number] 2.16.840.1.622732.3.579.2 .593 1958 Unknown [id number] 2.16.840.1.118721.3.579.2 .593 1958 Unknown [id number] 2.16.840.1.154490.3.579.2 .593 1958 Unknown [id number] 2.16.840.1.431728.3.579.2 .593 1958 Unknown [id number] 2.16.840.1.721786.3.579.2 .593 1958 Unknown [id number] 2.16.840.1.243970.3.579.2 .593 1958 Unknown [id number] 2.16.840.1.612900.3.579.2 .593 1958 Unknown [id number] 2.16.840.1.000612.3.579.2 .593 1958 Unknown [id number] 2.16.840.1.914020.3.579.2 .593 1958 Unknown [id number] 2.16.840.1.991444.3.579.2 .593 1958 Unknown [id number] 2.16.840.1.088939.3.579.2 .593 1958 Unknown [id number] 2.16.840.1.876749.3.579.2 .593 1958 Unknown [id number] 2.16.840.1.385707.3.579.2 .593 1958 Unknown [id number] 2.16.840.1.556726.3.579.2 .593 1958 Unknown [id number] 2.16.840.1.498825.3.579.2 .593 1958 Unknown [id number] 2.16.840.1.556043.3.579.2 .593 1958 Unknown [id number] 2.16.840.1.079512.3.579.2 .593 1958 Unknown [id number] 2.16.840.1.956569.3.579.2 .593 1958 Unknown [id number] 2.16.840.1.856046.3.579.2 .593 1958 Unknown [id number] 2.16.840.1.919251.3.579.2 .72 1958 Unknown [id number] 2.16.840.1.535783.3.579.2 .72 1958 Unknown [id number] 2.16.840.1.617975.3.579.2 .72 1958 Unknown [id number] 2.16.840.1.456898.3.579.2 .72 1958 Unknown [id number] 2.16.840.1.281849.3.579.2 .72 1958 Unknown [id number] 2.16.840.1.177947.3.579.2 .72 1958 Unknown [id number] 2.16.840.1.176967.3.579.2 .72 1958 Unknown [id number] 2.16.840.1.562593.3.579.2 .72 1958 Unknown [id number] 2.16.840.1.553951.3.579.2 .72 1958 Unknown [id number] 2.16.840.1.328702.3.579.2 .72 1958 Unknown [id number] 2.16.840.1.597860.3.579.2 .72 1958 Unknown [id number] 2.16.840.1.471005.3.579.2 .72 1958 Unknown [id number] 2.16.840.1.214889.3.579.2 .72 1958 Unknown [id number] 2.16.840.1.764106.3.579.2 .72 1958 Unknown [id number] 2.16.840.1.320018.3.579.2 .727 1958 Unknown [id number] 2.16840.1.167262.3.579.2 .128 1958 Unknown [id number] 2.16.840.1.302168.3.579.2 .125 1958 Unknown [id number] 2.16840.1.321689.3.579.2 .125 1958 Unknown [id number] 2.840.1.183234.3.579.2 .1258 1958 Unknown [id number] 2.840.1.866253.3.579.2 .1258 1958 Unknown [id number] 2.840.1.252988.3.579.2 .1258 1958 Unknown [id number] 2.840.1.702862.3.579.2 .1258 1958 Unknown [id number] 2.840.1.776213.3.579.2 .1258 1958 Unknown [id number] 2.840.1.511716.3.579.2 .1258 1958 Unknown [id number] 2.840.1.875899.3.579.2 .125 1958 Unknown [id number] 2.16840.1.217734.3.579.2 .128 1958 Unknown [id number] 2.16840.1.737401.3.579.2 .1285 1958 Unknown [id number] 2.840.1.877595.3.579.2 .1285 1958 Unknown [id number] 2.840.1.969385.3.579.2 .1285 1958 Unknown [id number] 2.16.840.1.259543.3.579.2 .1286 1958 Unknown [id number] 2.16.840.1.750891.3.579.2 .1286 1958 Unknown [id number] 2.16.840.1.981272.3.579.2 .1286 Medicare Medicare [id number] Unknown [id number] Unknown [id number] 2.16.840.1.360582.3.579.2 .531 Unknown [id number] 2.16.840.1.106995.3.579.2 .531 Unknown [id number] 2.16.840.1.111924.3.579.2 .531 Unknown [id number] 2.16.840.1.379310.3.579.2 .531 Unknown [id number] 2.16.840.1.726623.3.579.2 .531 Unknown [id number] 2.16.840.1.081936.3.579.2 .531 Social History Date Type Detail Facility Start: 01-17-2021 End: 05-20-2025 Tobacco smoking status NHIS Never smoker [facility] Start: 01-17-2021 End: 07-27-2022 Tobacco use and exposure Never used [facility] Start: 01-17-2021 End: 04-09-2024 Alcohol intake Current drinker of alcohol (finding) [facility] Start: 01-17-2021 History SDOH Alcohol Frequency 1 [facility] Start: 01-17-2021 Alcohol Comment socially [facility] Start: 1960 Sex Assigned At Not on file [facility] Exposure to SARS-CoV -2 (event) Not sure [facility] Tobacco smoking status Never [facility] Start: 09-04-2020 End: 06-06-2023 Sex Assigned At Female Nik Carrillo [facility] Start: 09-04-2020 End: 06-06-2023 History of Social function [facility] Start: 06-06-2023 Alcohol Comment rarely--holida y or special occ [facility] (I/We) worried wheth er (my/our) food would run out before (I/we) got money to buy more. DK or Refused [facility] Start: 1960 Sex Assigned At Female F [facility] Start: 04-16-2024 End: 01-27-2025 Alcoholic beverage [...] 1cup daily [facility] Start: 07-03-2024 End: 03-12-2025 Alcoholic beverage intake Current non-drinker of alcohol (finding) [facility] Are you now , , , , never or living with a partner? [facility] How hard is it for y ou to pay for the very basics like food, housing, medical care, and heating Not very hard [facility] Start: 03-26-2015 End: 11-26-2024 Sex Female (finding) [facility] Start: 11-25-2024 End: 05-21-2025 SDOH Follow up SDOH Follow up [facility] Work Phone: Medical Equipment Procedure Code Equipment Code Equipment Origin al Text Equipment Identifier Dates Insertion, catheter, dialysis, tunneled, with imaging guidance Double-lumen haemodialysis catheter, implantable [id number] [facility] Start: 05-21-2025 4 times daily use [id number] Start: 10-16-2023 End: 10-15-2024 5 [address] Use as instructed [id number] Start: 10-29-2024 End: 10-29-2025 Goals Date Patient Goal Desired Activity /State Functional Status Date Assessment Result Facility 11-26-2024 Functional status Patient at Baseline [facility] Work Phone: 09-08-2024 Functional status Patient at Baseline [facility] Work Phone: 09-06-2024 Functional status Patient is Pro gressing Toward Baseline [facility] Work Phone: 10-25-2023 Functional Status N/A [facility] 05-22-2023 Functional Status N/A [facility] 05-11-2023 Functional Status [facility] 02-22-2023 Functional Status N/A [facility] 09-21-2022 Functional Status N/A [facility] 09-13-2022 Functional Status N/A [facility] Mental Status Date Assessment Result Facility 11-26-2024 Cognitive function Cognitive Sta tus Patient at Baseline [facility] Work Phone: 09-08-2024 Cognitive function Cognitive Sta tus Patient at Baseline [facility] Work Phone: 09-06-2024 Cognitive function Cognitive Sta tus Patient is Progressing Toward Baseline [facility] Work Phone: Clinical Notes 01-17-2021 to 05-20-2025 Telephone Encounter - Barbara Lucero RN - 05/19/2025 4:22 PM EDTTelephone Encounter - Barbara Lucero RN - 05/19/2025 4:22 PM EDTTelephone Encounter - Yesenia Burnett RN - 04/18/2025 9:50 AM EDT Note Date & Type Note Facility 05-20-2025 Radiology Diagnostic study note [facility] [place] [address] [place], [place] [id number] CT Scan Report Signed Patient: Aislinn Wheeler MR#: [id number] : 1960 Acct:[id number] Age/Sex: 65 / F ADM Date: 5 Loc: ER Room: Type: [facility] ER Attending Dr: Copies to: Aleksey Clemente DO~ Ordering Provider: Aleksey Clemente DO Date of Service: 05/20/25 CT/CT chest wo con: cough ([id number]) CT/CT abdomen pelvis wo con: renal failure CT Chest, Abdomen and Pelvis without contrast TECHNIQUE: Axial imaging with 2-D reconstruction. The CT exam was performed using one or more the following dose reduction techniques: Automated exposure control, adjustment of the MA and/or Kv according to patient size, or use of theiterative reconstruction technique. History: Chest heaviness. Multiple falls. COMPARISON: None THYROID: No significant thyroid abnormality identified. AIRWAY: Central airway is patent. ESOPHAGUS: Esophagus normal course and caliber. HEART: Heart is not enlarged. PERICARDIAL EFFUSION: None CORONARY ARTERY CALCIFICATION: None MEDIASTINUM: Nonenlarged mediastinal lymph nodes identified. HILAR REGION: No hilar mass or adenopathy is seen. THORACIC AORTA: No thoracic aortic aneurysm or dissection. No atherosclerosis LUNG INTERSTITIUM: No infiltrate or congestion identified. PLEURAL EFFUSION No pleural effusion identified. PNEUMOTHORAX: No pneumothorax seen. LUNG NODULE: 12 mm noncalcified nodule in the lingular segment of left upper lobe. CHEST WALL: No chest wall abnormality seen. The bony chest intact. LIVER: No hepatic mass or intrahepatic biliary ductal dilatation is identified. Normal density of the liver parenchyma identified. GALLBLADDER: No gallbladder abnormalities identified. BILE DUCTS: No biliary duct dilatation identified. SPLEEN: Normal PANCREAS: Unremarkable ADRENAL GLANDS: The adrenal glands are unremarkable. KIDNEYS: Redemonstration of marked hydronephrosis and hydroureter. No obstructing stone. Consideration for the reflux and/or chronic hydronephrosis.. ABDOMINAL AORTA: The abdominal aorta is normal. RETROPERITONEUM: No significant retroperitoneal abnormalities identified. STOMACH:Nondistended SMALL BOWEL: The small bowel loops are nondistended. APPENDIX: The appendix is normal. COLON: There is no colitis or diverticulitis. URINARY BLADDER: Urinary bladder wall thickening. Similar finding. Underdistention. May represent cystitis. REPRODUCTIVE STRUCTURES: The reproductive structures are unremarkable. FREE AIR: None FREE FLUID: None ABDOMINAL WALL: No subcutaneous soft tissue abnormality identified. INGUINAL HERNIA: None BONES:Chronic L1 superior endplate compression deformity. No acute fracture seen. CT/CT chest wo con IMPRESSION: No acute traumatic injury of the chest, abdomen or pelvis. Similar marked bilateral hydronephrosis and hydroureter without obstructing stone. Continued urinary bladder wall thickening. May represent underdistention. May also represent muscular hypertrophy. Cystitis cannot be excluded. Correlate with urinalysis. PRELIMINARY RESULTS: None given Impression dictated by: Jori Ruiz M.D. 05/20/2025 6:29 PM Dictation Location: [place] [address] Transcribed By: [facility] 05/20/251828 Dictated By: Jori Ruiz DO 05/20/251818 Signed By: 05/20/251828 [facility] 05-20-2025 Radiology Diagnostic study note [facility] [place] [address] [place] [address] CT Scan Report Signed Patient: Aislinn Wheeler MR#: [id number] : 1960 Acct:[id number] Age/Sex: 65 / F ADM Date: 5 Loc: ER Room: Type: [facility] ER Attending Dr: Copies to: Aleksey Clemente DO~ Ordering Provider: Aleksey Clemente DO Date of Service: 05/20/25 CT/CT head/brain wo con: multiple falls Unenhanced head CT TECHNIQUE: Contiguous axial imaging of the head. The CT exam was performed usingone or more the following dose reduction techniques: Automated exposure control,adjustment of the MA and/or Kv according to patient size, or use of the iterative reconstruction technique. COMPARISON: None HISTORY: Multiple falls. Chest heaviness. VENTRICLES: Within normal limits ATROPHY: None BRAIN PARENCHYMA: Adequate young-white matter differentiation identified. HEMORRHAGE: None HERNIATION: No mass effect or herniation INFARCTION: No recent vascular distribution infarction is seen. EXTRA-AXIAL FLUID COLLECTIONS None MIDBRAIN: Unremarkable JEREMI: Unremarkable MEDULLA: Unremarkable SINUSES: Unremarkable ORBITS: Grossly unremarkable MASTOIDS: Unremarkable BONY STRUCTURES Intact ADDITIONAL FINDINGS: CT/CT head/brain wo con IMPRESSION: No acute findings. Impression dictated by: Jori Ruiz M.D. 05/20/2025 6:18 PM Dictation Location: [facility] Transcribed By: [facility] 05/20/251817 Dictated By: Jori Ruiz DO 05/20/251816 Signed By: 05/20/251817 [facility] 05-19-2025 Miscellaneous Notes Last OV: 03/12/25 Next OV: 06/18/25 OARRS appropriate: Yes Last UDS: 03/12/25 Pharmacy: [facility] documented in this encounter [facility] 05-19-2025 Telephone encounter Note Last OV: 03/12/25 Next OV: 06/18/25 OARRS appropriate: Yes Last UDS: 03/12/25 [facility]acy[facility] 04-18-2025 Miscellaneous Notes Last OV: 03/12/2025 Next OV: 06/18/2025 OARRS appropriate: yes Last UDS: 03/12/2025 Pharmacy: [facility] Patient called to request refill for Pregabalin and Creston. Pregabalin prescription written 03/26/2025 has 1 Refill. Creston script has been pended for review and signature. documented in this encounter [facility] 04-18-2025 Telephone encounter Note Last OV: 03/12/2025 Next OV: 06/18/2025 OARRS appropriate: yes Last UDS: 03/12/2025 Pharmacy: [email or web address] Michael Patient called to request refill for Pregabalin and Creston. Pregabalin prescription written 03/26/2025 has 1 Refill. Creston script has been pended for review and signature. [facility] 03-17-2025 Evaluation note Diagnosis Onset Date Resolution Anemia of renal disease acute J ilsa 2024 1:57pm B12 deficiency acute March 17, 2025 1:57pm Chronic kidney disease, stage IV (severe) acute March 17 1:57pm CKD stage 3b, GFR 30-44 ml/min acute March 17, 2025 1:57pm Hyperparathyroidism acute March 17, 2025 1:57pm Hypomagnesemia acute March 17, 2025 1:57pm Neurogenic bladder acute February 192024 1:57pm Renal cyst acute March 17 1:57pm Diabetic nephropathy associated with type 2 diabetes mellitus resolved March 17 1:57pm Hyperkalemia resolved March 17 1:57pm Hypertensive nephropathy resolved March 17, 2025 1:57pm Iron deficiency anemia resolved 2024 1:57pm Vitamin D deficiency resolved March 17, 2025 1:57pm Anemia of renal disease acute S ep2024 10:59am B12 deficiency acute May 14, 2025 10:59am Chronic kidney disease, stage IV (severe) acute April 10:59am CKD stage 3b, GFR 30-44 ml/min acute May 14, 2025 10:59am DM type 2 (diabetes mellitus, type 2) acute April 10:59am Hyperparathyroidism acute mb2024 10:59am Hypomagnesemia acute May 14, 2025 10:59am Neurogenic bladder acute 2024 10:59am Renal cyst acute April 10:59am Diabetic nephropathy associated with type 2 diabetes mellitus resolved April 10:59am Hyperkalemia resolved May 142024 10:59am Hypertensive nephropathy resolved May 14, 2025 10:59am Iron deficiency anemia resolved Se ptember 2024 10:59am Vitamin D deficiency resolved Apr emb2024 10:59am [facility] Work Phone: 1(644) 143-483507-28-2025 Evaluation note* Diagnosis Onset Date Resolution Status [...] 1:57pm Iron deficiency anemia resolved Ju ly 2024 1:57pm Vitamin D deficiency resolved March 17, 2025 1:57pm Anemia of renal disease acute S eptember 2024 10:59am B12 deficiency acute May 14, 2025 10:59am Chronic kidney disease, stag e IV (severe) acute May 14, 2025 10:59am CKD stage 3b, GFR 30-44 ml/min acute May 14, 2025 10:59am DM type 2 (diabetes mellitus , type 2) acute May 14, 2025 10:59am Hyperparathyroidism acute Septe mber 2024 10:59am Hypomagnesemia acute May 14, 2025 10:59am Neurogenic bladder acute Septem zulma 2024 10:59am Renal cyst acute April 10:59am 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 resolved Se ptember 2024 10:59am Hyperkalemia resolved May 142024 10:59am Hypertensive nephropathy resolved May 14, 2025 10:59am Iron deficiency anemia resolved ptember 2024 10:59am Vitamin D deficiency resolved Apr 10:59am Anemia of renal disease acute 2024 6:50pm CKD stage 3b, GFR 30-44 ml/min acute May 20, 2025 6:50pm DM type 2 (diabetes mellitus , type 2) acute May 20, 2025 6:50pm Generalized weakness acute Apr 6:50pm Hypertension acute May 202024 6:50pm Multiple falls acute May 20, 2025 6:50pm Obstructive nephropathy due to neurogenic bladder acute April 6:50pm Self-catheterizes urinary bladder acute May 20, 2025 6:50pm Urinary tract infection acute 2024 6:50pm ANATOLIY (acute kidney injury) resolved May 20, 2025 6:50pm [facility] Work Phone: 1(992) 583-283507-28-2025 Evaluation note* Diagnosis Onset Date Resolution Status [...] madhavi with type 2 diabetes mellitus resolved ly 2024 1:57pm Hyperkalemia resolved March 17, 2 025 1:57pm Hypertensive nephropathy resolved March 17, 2025 1:57pm Iron deficiency anemia resolved 2024 1:57pm Vitamin D deficiency resolved March 17, 2025 1:57pm Anemia of renal disease acute S 2024 10:59am B12 deficiency acute May 14, 2025 10:59am Chronic kidney disease, stag e IV (severe) acute [place] 24th, 2025 10:59am CKD stage 3b, GFR 30-44 ml/min acute May 14, 2025 10:59am DM type 2 (diabetes mellitus , type 2) acute May 14, 2025 10:59am Hyperparathyroidism acute 2024 10:59am Hypomagnesemia acute May 14, 2025 10:59am Neurogenic bladder acute Septem 2024 10:59am Renal cyst acute April 10:59am 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 resolved Se ptember 2024 10:59am Hyperkalemia resolved May 142024 10:59am Hypertensive nephropathy resolved May 14, 2025 10:59am Iron deficiency anemia resolved Se ptember 2024 10:59am Vitamin D deficiency resolved Apr 10:59am Anemia of renal disease acute S ep2024 6:50pm Chronic kidney disease, stage V acut e May 20, 2025 6:50pm CKD stage 3b, GFR 30-44 ml/min acute May 20, 2025 6:50pm DM type 2 (diabetes mellitus , type 2) acute May 20, 2025 6:50pm ESRD (end stage renal disease) acute May 20, 2025 6:50pm Generalized weakness acute Apr 6:50pm Hydroureteronephrosis acute Apr 6:50pm Hypertension acute May 202024 6:50pm Multiple falls acute May 20, 2025 6:50pm Obstructive nephropathy due to neurogenic bladder acute April 6:50pm Self-catheterizes urinary bladder ac [place] May 20, 2025 6:50pm Urinary tract infection acute S 2024 6:50pm ANATOLIY (acute kidney injury) resolved May 20, 2025 6:50pm Hypertensive nephropathy resolved May 20, 2025 6:50pm [facility] Work Phone: 1(948) 203-397307-28-2025 Evaluation note* Diagnosis Onset Date Resolution Status [...] ly 2024 1:57pm Hyperkalemia resolved March 17, 025 1:57pm Hypertensive nephropathy resolved March 17, 2025 1:57pm Iron deficiency anemia resolved Ju ly 2024 1:57pm Vitamin D deficiency resolved March 17, 2025 1:57pm Anemia of renal disease acute 2024 10:59am B12 deficiency acute May 14, 2025 10:59am Chronic kidney disease, stag e IV (severe) acute May 14, 2025 10:59am CKD stage 3b, GFR 30-44 ml/min acute May 14, 2025 10:59am DM type 2 (diabetes mellitus , type 2) acute May 14, 2025 10:59am Hyperparathyroidism acute 2024 10:59am Hypomagnesemia acute May 14, 2025 10:59am Neurogenic bladder acute 2024 10:59am Renal cyst acute April 10:59am 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 resolved Se ptember 2024 10:59am Hyperkalemia resolved May 142024 10:59am Hypertensive nephropathy resolved May 14, 2025 10:59am Iron deficiency anemia resolved Se ptember 2024 10:59am Vitamin D deficiency resolved Apr 10:59am Anemia of renal disease acute S 2024 6:50pm Chronic kidney disease, stage V acut e May 20, 2025 6:50pm CKD stage 3b, GFR 30-44 ml/min acute May 20, 2025 6:50pm DM type 2 (diabetes mellitus , type 2) acute May 20, 2025 6:50pm ESRD (end stage renal disease) acute May 20, 2025 6:50pm Generalized weakness acute Sept emb2024 6:50pm Hydroureteronephrosis acute Sep tember 2024 6:50pm Hypertension acute May 202024 6:50pm Multiple falls acute May 20, 2025 6:50pm Obstructive nephropathy due to neurogenic bladder acute April 6:50pm Self-catheterizes urinary bladder ac [place] May 20, 2025 6:50pm Urinary tract infection acute S eptemb2024 6:50pm ANATOLIY (acute kidney injury) resolved May 20, 2025 6:50pm Hypertensive nephropathy resolved May 20, 2025 6:50pm ESRD (end stage renal disease) acute May 29, 2025 1:35pm [facility] Work Phone: 1(159) 487-718607-24-2025 Miscellaneous Notes* Telephone Encounter - Agusto Gray CNA - 03/13/2025 12:01 PM EDT Last OV: 03/11/25 Next OV: 06/18/25 OARRS appropriate: yes Last UDS: 03/11/25 [facility] encounter Note* Telephone Encounter - Agusto Gray CNA - 03/13/2025 12:01 PM EDT Last OV: 03/11/25 Next OV: 06/18/25 OARRS appropriate: yes Last UDS: 03/11/25 [facility] History of Present illness Narrative* Sweta Ch PA-C - 03/12/2025 1:00 PM EDT [facility] [address] [place] [address] Patient: Aislinn Wheeler Sex: female : 1960 Age: 64 y.o. PCP: KAPIL MAXWELL MD 03/12/2025 Aislinn Wheeler is here for a(n) post procedure follow up 02/28/25 Rt Stellate Ganglion with 50% relief. Date of onset of pain: 2002 , pain has lasted greater than 3 months. Pain scale before treatment: 10/10 Percentage and duration of relief after treatment: [...] cart, cold/heat). Treatments tried: Tizanidine, Lyrica, Gabapentin, Creston, Elevation, NSAIDs x 2 (Ibuprofen, Aleve), Flexeril, BioFreeze, Immobilization w/min relief, Celebrex & compound cream w/no relief, Rt Stellate Ganglion NB w/mod relief. The treatment provided moderate relief. The effect of pain on patient's ADLS: Moderate Impairment. Past Medical History: Diagnosis Date Arthritis RHEUMATOID Arthritis OSTEOARTHRITIS Asthma At risk for UTI related to indwelling catheter Broken toes 08/2022 Bronchitis Cancer ([facility]) UTERINE Chronic kidney disease 2015 stage 3 per pt 04/05/23 COVID-19 virus infection 09/28/2021 Diabetes mellitus ([facility]) Fibromyalgia GERD (gastroesophageal reflux disease) History of degenerative disc disease Hypertension Joint pain Lupus Mitral valve prolapse Osteoarthritis Pneumonia released from hospital on 11/12/21 RSD (reflex sympathetic dystrophy) Stroke ([facility]) Past Surgical History: Procedure Laterality Date AMPUTATION OF REPLICATED TOES Left 06/2022 ANKLE SURGERY CATARACT EXTRACTION, BILATERAL Bilateral 03/22 and 04/13 CHOLECYSTECTOMY HYSTERECTOMY INJECTION BLOCK NERVE STELLATE GANGLION NECK Right 02/28/2025 Performed by Zackery Miranda MD at [facility] BLOCK NERVE STELLATE GANGLION NECK Right 03/15/2024 Performed by Zackery Miranda MD at [facility] BLOCK NERVE STELLATE GANGLION NECK Right 10/13/2023 Performed by Zackery Miranda MD at [facility] BLOCK NERVE STELLATE GANGLION NECK Right 12/23/2022 Performed by Zackery Miranda MD at [facility] BLOCK NERVE STELLATE GANGLION NECK Right 05/06/2022 Performed by Zackery Miranda MD at [facility] BLOCK NERVE STELLATE GANGLION NECK Right 10/15/2021 Performed by Zackery Miranda MD at [facility] BLOCK STELLATE GANGLION N/A 02/17/2017 Performed by Zackery Miranda MD at [facility] BLOCK STELLATE GANGLION NECK Right 06/18/2018 Performed by Zackery Miranda MD at [facility] BLOCK STELLATE GANGLION NECK N/A 05/15/2017 Performed by Zackery Miranda MD at [facility] BLOCK STELLATE GANGLION NECK Right Right 05/22/2020 Performed by Zackery Miranda MD at [facility] BLOCK STELLATE GANGLION NECK Right N/A 10/04/2019 Performed by Zackery Miranda MD at [facility] BLOCK STELLATE GANGLION NECK Right Right 05/10/2019 Performed by Zackery Miranda MD at [facility] BLOCK STELLATE GANGLION NECK Right Right 12/31/2018 Performed by Zackery Miranda MD at [facility] BLOCK STELLATE GANGLION NECK Right Right 10/09/2017 Performed by Zackery Miranda MD at [facility] KNEE SURGERY REMOVAL STIMULATOR SPINAL CORD N/A 12/29/2017 Performed by Zackery Miranda MD at [facility] Allergies Allergen Reactions Latex [...] Resource Strain: Medium Risk (10/11/2023) Received from [facility] Overall Financial Resource Strain (CARDIA) Difficulty of Paying Living Expenses: Somewhat hard Food Insecurity: No Food Insecurity (03/12/2025) Hunger Screening Food Insecurity - Worry: Never True Food Insecurity - Inability: Never True Transportation Needs: No Transportation Needs (10/11/2023) Received from [facility] PRAPARE - Transportation Lack of Transportation (Medical): No Lack of Transportation (Non-Medical): No Physical Activity: Inactive (10/11/2023) Received from [facility] Exercise Vital Sign Days of Exercise per Week: 0 days Minutes of Exercise per Session: 0 min Stress: Stress Concern Present (10/11/2023) Received from [facility] [place] [facility] Occupational Health - Occupational Stress Questionnaire Feeling of Stress : Very much Social Connections: Socially Isolated (10/11/2023) Received from [facility] Social Connection and Isolation Panel [NHANES] Frequency of Communication with Friends and Family: More than three times a week Frequency of Social Gatherings with Friends and Family: More than three times a week Attends Yarsani Services: Never Active Member of Clubs or Organizations: No Attends Club or Organization Meetings: Never Marital Status: Interpersonal Safety: Unknown (10/12/2023) Received from [facility] [place] Safety & Environment Fear of Current or Ex-Partner: Not on file Emotionally Abused: Not on file Physically Abused: Not on file Sexually Abused: Not on file Physically or Sexually Abused: Not on file Housing Instability: Low Risk (10/11/2023) Received from [facility] Housing Stability Vital Sign Unable to Pay [...] - Gabapentin, Urine - Pregabalin, Urine Continue Creston 7.5/325 mg TID PRN and Lyrica 150 [...] medication that requires intensive monitoring for toxicity Creston and Lyrica. OARRS and most recent UDS were reviewed, discussed and appropriate for medications prescribed. Creston pill count completed at today's office visit. [...] if symptoms worsen or if their pain beginsto have a negative impact on their quality [...] Ch PA-C 03/12/25 1345 [facility] Miscellaneous Notes* Addendum Note - Jenna Vásquez CPT - 03/12/2025 1:00 PM EDTAddended by: JENNA VÁSQUEZ on: 03/12/2025 06:51 PM Modules accepted: Orders [facility] Note* Addendum Note - Jenna Vásquez CPT - 03/12/2025 1:00 PM EDTAddended by: JENNA VÁSQUEZ on: 03/12/2025 06:51 PM Modules accepted: Orders [facility]07-14-2025 Miscellaneous Notes* Telephone Encounter - Vannessa Porter - 03/03/2025 8:12 AM EDT Per the lab Aislinn's urine collection did [...] at that time? * Telephone Encounter - Sweta Ch PA-C - 03/03/2025 8:12 AM EDT Ok to repeat * Telephone Encounter - Barbara Lucero RN - 03/03/2025 8:12 AM EDT Attempt to call patient to advise of error, no answer. * Telephone Encounter - Asia Barreto RN - 03/03/2025 8:12 AM EDT UDS was done at most recent OV 03/12 [facility] Telephone encounter Note* Telephone Encounter - Vannessa Porter - 03/03/2025 8:12 AM EDT Per the lab Aislinn's urine collection did not have 2 patient identifiers listed on the specimen so they were not able to run the labs. We will need to recollect. [facility] Telephone encounter Note* Telephone Encounter - Barbara Lucero RN - 03/03/2025 8:12 AM EDT I apologize, this was my error, I did not attached the labels to the specimen. Patient has a follow up on 03/12/2025 at 1 pm. Is it okay to recollect at that time? [facility] Telephone encounter Note* Telephone Encounter - Sweta Ch PA-C - 03/03/2025 8:12 AM EDT Ok to repeat [facility] Telephone encounter Note* Telephone Encounter - Barbara Lucero RN - 03/03/2025 8:12 AM EDT Attempt to call patient to advise of error, no answer. [facility] Telephone encounter Note* Telephone Encounter - Asia Barreto RN - 03/03/2025 8:12 AM EDT UDS was done at most recent OV 03/12 [facility] Miscellaneous Notes* Telephone Encounter - Agusto Gray CNA - 02/11/2025 10:56 AM EDT Last OV: 01/08/25 needs inj Next OV: 03/12/25 OARRS appropriate: yes Last UDS: 04/24/24 [facility]acy[facility] * Telephone Encounter - Sweta Ch PA-C - 02/11/2025 10:56 AM EDT This needs signed by Willis documented [facility] Telephone encounter Note* Telephone Encounter - Agusto Gray CNA - 02/11/2025 10:56 AM EDT Last OV: 01/08/25 needs inj Next OV: 03/12/25 OARRS appropriate: yes Last UDS: 04/24/24 [facility] Telephone encounter Note* Telephone Encounter - Sweta Ch PA-C - 02/11/2025 10:56 AM EDT This needs signed by Willis [id number] Miscellaneous Notes* Telephone Encounter - Asia Barreto [...] there anything specific doctor willis or the FISHING GUIDE's want prior to 02/28/2025 scheduled procedure? * Telephone Encounter - Zackery Miranda MD - 02/06/2025 1:00 PM EDT PCP clearance * Telephone Encounter - Asia Barreto RN - 02/06/2025 1:00 PM EDT PCP clearance sent today via [facility] * Telephone Encounter - Asia Barreto RN - 02/06/2025 1:00 PM EDT Received clearance back with the following: Pt discharged from practice d/t non-compliance Called pt, her new PCP is Dr Maxwell. States her blood work from today was good . States she was just discharged today from [facility] and will have a f/u with him on 02/19/2025 New clearance letter will be sent on 02/18/2025 Will request records from [facility] from hospitalization. * Telephone Encounter - Yesenia Burnett RN - 02/06/2025 1:00 PM EDT Surgical clearance received from PCP today. Patient's procedure is scheduled for 02/28/2025. documented in this encounterHol[facility]06-[facility] Telephone encounter Note* Telephone Encounter - Asia [...] there anything specific doctor willis or the FISHING GUIDE's want prior to 02/28/2025 scheduled procedure? [facility] Tele[facility] encounter Note* Telephone Encounter - Zackery Miranda MD - 02/06/2025 1:00 PM EDT PCP clearance [facility] Telephone encounter Note* Telephone Encounter - Asia Barreto RN - 02/06/2025 1:00 PM EDT PCP clearance sent today via [facility] Telephone encounter Note* Telephone Encounter - Asia Barreto RN - 02/06/2025 1:00 PM EDT Received clearance back with the following: Pt discharged from practice d/t non-compliance Called pt, her new PCP is Dr Maxwell. States her blood work from today was good . States she was just discharged today from [facility] and will have a f/u with him on 02/19/2025 New clearance letter will be sent on 02/18/2025 Will request records from [facility] from hospitalization. [facility] Telephone encounter Note* Telephone Encounter - Yesenia Burnett RN - 02/06/2025 1:00 PM EDT Surgical clearance received from PCP today. Patient's procedure is scheduled for 02/28/2025. [facility] History of Present illness Narrative* Agusto Olmstead NP - 01/27/2025 5:38 PM EDTAssociated Problem(s): Other fatigue Unclear etiology Check labs * Agusto Olmstead NP - 01/27/2025 5:36 PM EDTAssociated Problem(s): Non compliance w medication regimen Difficulty with follow ups, taking all meds and getting to all appts No longer being followed by advocate d/t pt non compliance * Agusto Olmstead NP - 01/27/2025 5:36 PM EDTAssociated Problem(s): Hypomagnesemia Check labs * Agusto Olmstead NP - 01/27/2025 5:35 PM EDTAssociated Problem(s): Vitamin D deficiency Check labs * Agusto Olmstead NP - 01/27/2025 5:35 PM EDTAssociated Problem(s): Type 2 diabetes mellitus with hyperglycemia, with long-term current use of insulin ([facility]) Check blood sugars daily, notify if <70 [...] 08/13 10.1% * Agusto Olmstead NP - 01/27/2025 5:35 PM EDTAssociated Problem(s): B12 deficiency Check to see if source of fatigue * Agusto Olmstead NP - 01/27/2025 5:35 PM EDTAssociated Problem(s): Hyperparathyroidism, unspecified ([facility]) Non compliant with fu with nephrology * Agusto Olmstead NP - 01/27/2025 5:35 PM EDTAssociated Problem(s): 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 Check labs * Agusto Olmstead NP - 01/27/2025 5:34 PM EDTAssociated Problem(s): Urinary tract infection symptoms See UA from office Will treat with atb today, Check urine culture * Agusto Olmstead NP - 01/27/2025 5:33 PM EDTAssociated Problem(s): Neurogenic bladder Straight caths self TID * Agusto Olmstead NP - 01/27/2025 5:33 PM EDTAssociated Problem(s): History of neurogenic bladder (Resolved 01/27/2025) Is straight cathing herself 3 times daily Will check labs * Agusto Olmstead NP - 01/27/2025 5:32 PM EDTAssociated Problem(s): Chronic kidney disease, stage 4 (severe) (CMS/HCC) Long standing uncontrolled HTN and DM Multiple attempts to get pt to specialists, does not follow through She is established with local Mail Clerk Goal: bp and DM control, although there again her compliance with blood sugar checking is difficult. She has been referred to local area Endo and [facility], but does not go to her appts [...] if therapies are helping or not * Agusto Olmstead NP - 01/27/2025 5:30 PM EDTAssociated Problem(s): Essential (primary) hypertension (CMS/HCC) Please check blood pressure daily and record DASH diet Limit caffeine Take medication as directed Contact office if chest pain, pressure, dizziness, shortness of breath, swelling legs Recommend slow position changes Current meds: amlodipine and metoprolol * Agusto Olmstead NP - 01/27/2025 5:30 PM EDTAssociated Problem(s): Type 2 diabetes mellitus with diabetic neuropathy, with long-term current use of insulin ([facility]) Not sure if her balance issues are [...] about 3 bottles of water daily. * Agusto Olmstead NP - 01/27/2025 2:40 PM [...] factor. Also had stress test/echo: 11/2024 at [facility] normal Back pain: no pain at rest, [...] (LASIX) 40 mg, 2 times daily HYDROcodone-acetaminophen (Creston) 7.5-325 MG tablet 1 tablet, 3 times [...] Diagnosis Date Amputation of left great toe ([facility]) Cervical cancer ([facility]) 10/11/2023 had Hysterectomy Charcot's joint of foot, left 10/11/2023 Chronic kidney disease, stage III (moderate) ([facility]) ([facility]) 10/11/2023 Fatty liver 10/11/2023 History of hysterectomy [...] of nail of digit of hand Osteoporosis ([facility]) 10/11/2023 Post-menopausal 10/11/2023 Rheumatoid arthritis ([facility]) 10/11/2023 RSD (reflex sympathetic dystrophy) 10/11/2023 Type 2 diabetes mellitus with diabetic neuropathy, unspecified whether oil heaterman insulin use ([facility]) 10/11/2023 Visual impairment 10/11/2023 HAD BILATERAL CATARCT [...] hyperglycemia, with long-term current use of insulin ([facility]) Check blood sugars daily, notify if <70 [...] Straight caths self TID Essential (primary) hypertension ([facility]) Please check blood pressure daily and record [...] neuropathy, with long-term current use of insulin ([facility]) Not sure if her balance issues are neuropathy related or lumbar etiology Relevant Orders Basic metabolic panel 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 Check labs Relevant Orders Basic metabolic panel Hyperparathyroidism, unspecified ([facility]) Non compliant with fu with nephrology B12 deficiency Check to see if source of fatigue Mixed hyperlipidemia ([facility]) Relevant Medications atorvastatin (Lipitor) 20 MG tablet Other Relevant Orders Basic metabolic panel Chronic kidney disease, stage 4 (severe) ([facility]) Long standing uncontrolled HTN and DM Multiple attempts to get pt to specialists, does not follow through She is established with local Mail Clerk Goal: bp and DM control, although there again her compliance with blood sugar checking is difficult. She has been referred to local area Endo and [facility], but does not go to her appts [...] Ferritin Vitamin B12 Folate documented in this [facility]06-09-2025 Instructions* Patient Instructions* Agusto Olmstead NP - 01/27/2025 2:40 PM EDT Check labs documented in this [facility]05-28-2025 Miscellaneous Notes* Telephone Encounter - Asia Barreto RN - 01/15/2025 8:07 AM EDT Last Office Visit: 01/08/2025 Next Office Visit: Visit date not found Last Urine Drug Screen: Lab Results Component Value Date BENZOSCRN Negative 08/09/2023 OARRS appropriate documented in this encounterHol[facility]05-28-[facility]25 Telephone encounter Note* Telephone Encounter - Asia Barreto RN - 01/15/2025 8:07 AM EDT Last Office Visit: 01/08/2025 Next Office Visit: Visit date not found Last Urine Drug Screen: Lab Results Component Value Date BENZOSCRN Negative 08/09/2023 OARRS appropriate [facility] History of Present illness Narrative* Sweta Ch PA-C - 01/08/2025 12:15 PM EDT [facility] [address] [place] [address] Patient: Aislinn Wheeler Sex: female : 1960 Age: 64 y.o. PCP: AGUSTO OLMSTEAD, CATCHER [employer] BUSINESS CONSULTANT 01/08/2025 Aislinn Wheeler is here for a(n)3 [...] cart, cold/heat). Treatments tried: Tizanidine, Lyrica, Gabapentin, Creston, Elevation, NSAIDs x 2 (Ibuprofen, Aleve), Flexeril, B ioFreeze, Immobilization w/min relief, Celebrex & compound cream w/no relief, Rt Stellate Ganglion NB w/mod relief. The treatment provided moderate relief. The effect of pain on patient's ADLS: Moderate Impairment. Past Medical History: Diagnosis Date Arthritis RHEUMATOID Arthritis OSTEOARTHRITIS Asthma At risk for UTI related to indwelling catheter Broken toes 08/2022 Bronchitis Cancer ([facility]) UTERINE Chronic kidney disease 2015 stage 3 per pt 04/05/23 COVID-19 virus infection 09/28/2021 Diabetes mellitus ([facility]) Fibromyalgia GERD (gastroesophageal reflux disease) History of degenerative disc disease Hypertension Joint pain Lupus Mitral valve prolapse Osteoarthritis Pneumonia released from hospital on 11/12/21 RSD (reflex sympathetic dystrophy) Stroke ([facility]) Past Surgical History: Procedure Laterality Date AMPUTATION OF REPLICATED TOES Left 06/2022 ANKLE SURGERY CATARACT EXTRACTION, BILATERAL Bilateral 03/22 and 04/13 CHOLECYSTECTOMY HYSTERECTOMY INJECTION BLOCK NERVE STELLATE GANGLION NECK Right 03/15/2024 Performed by Zackery Miranda MD at [facility] INJE[facility] BLOCK NERVE STELLATE GANGLION NECK Right 10/13/2023 Performed by Zackery Miranda MD at [facility] INJECTION BLOCK NERVE STELLATE GANGLION NECK Right 12/23/2022 Performed by Zackery Miranda MD at [facility] INJECTION BLOCK NERVE STELLATE GANGLION NECK Right 05/06/2022 Performed by Zackery Miranda MD at [facility] INJECTION BLOCK NERVE STELLATE GANGLION NECK Right 10/15/2021 Performed by Zackery Miranda MD at [facility] INJECTION BLOCK STELLATE GANGLION N/A 02/17/2017 Performed by Zackery Miranda MD at [facility] INJECTION BLOCK STELLATE GANGLION NECK Right 06/18/2018 Performed by Zackery Miranda MD at [facility] INJECTION BLOCK STELLATE GANGLION NECK N/A 05/15/2017 Performed by Zackery Miranda MD at [facility] INJECTION BLOCK STELLATE GANGLION NECK Right Right 05/22/2020 Performed by Zackery Miranda MD at [facility] INJECTION BLOCK STELLATE GANGLION NECK Right N/A 10/04/2019 Performed by Zackery Miranda MD at [facility] INJECTION BLOCK STELLATE GANGLION NECK Right Right 05/10/2019 Performed by Zackery Miranda MD at [facility] INJECTION BLOCK STELLATE GANGLION NECK Right Right 12/31/2018 Performed by Zackery Miranda MD at [facility] INJECTION BLOCK STELLATE GANGLION NECK Right Right 10/09/2017 Performed by Zackery Miranda MD at [facility] KNEE SURGERY REMOVAL STIMULATOR SPINAL CORD N/A 12/29/2017 Performed by Zackery Miranda MD at [facility] Allergies Allergen Reactions Latex Added [...] Resource Strain: Medium Risk (10/11/2023) Received from [facility] Overall Financial Resource Strain (CARDIA) Difficulty of Paying Living Expenses: Somewhat hard Food Insecurity: No Food Insecurity (01/08/2025) Hunger Screening Food Insecurity - Worry: Never True Food Insecurity - Inability: Never True Transportation Needs: No Transportation Needs (10/11/2023) Received from [facility] PRAPARE - Transportation Lack of Transportation (Medical): No Lack of Transportation (Non-Medical): No Physical Activity: Inactive (10/11/2023) Received from [facility] Exercise Vital Sign Days of Exercise per Week: 0 days Minutes of Exercise per Session: 0 min Stress: Stress Concern Present (10/11/2023) Received from [facility] [place] [employer] - Occupational Stress Questionnaire Feeling of Stress : Very much Social Connections: Socially Isolated (10/11/2023) Received from [facility] Social Connection and Isolation Panel [NHANES] Frequency of Communication with Friends and Family: More than three times a week Frequency of Social Gatherings with Friends and Family: More than three times a week Attends Yarsani Services: Never Active Member of Clubs or Organizations: No Attends Club or Organization Meetings: Never Marital Status: Interpersonal Safety: Unknown (10/12/2023) Received from [facility] Safety & Environment Fear of Current or Ex-Partner: Not on file Emotionally Abused: Not on file Physically Abused: Not on file Sexually Abused: Not on file Physically or Sexually Abused: Not on file Housing Instability: Low Risk (10/11/2023) Received from [facility] Housing Stability Vital Sign Unable to Pay [...] - Gabapentin, Urine - Pregabalin, Urine Continue Creston 7.5/325 mg TID PRN and Lyrica 150 [...] procedure was described in detail to the patientas well as the potential benefits of pain [...] often require a series of 2-3 before significantrelief is noted, but we will determine after [...] medication that requires intensive monitoring for toxicity Creston and Lyrica. OARRS and most recent UDS were reviewed, discussed and appropriate for medications prescribed. Creston pill count completed at today's office visit. [...] of the same nature in that the samesymptoms have returned. It is hopeful that this [...] Ch PA-C 01/08/25 1327 documented in this encounterAdena Health SystemNetmining [facility]le[facility] [id number] Instructions* Patient Instructions* Agusto Gray CNA - 01/08/2025 12:15 PM EDT Epidural Steroid Injection (JALEESA) / Nerve Root Injection / Nerve Block These procedure(s) involve the injection of a steroid and anesthetic into the epidural space or thenerve sheath that is both diagnostic and potentially therapeutic for alleviating discomfort of the legs and arms secondary to compression of the respective nerves due to bulging discs, bone spurs andother potential causes. Steroids are potent anti-inflammatory drugs [...] a safety precaution, you must have a jeep driver after a lumbar nerve root injection, [...] take you to the nearest emergency room. Tellthe emergency room staff that you recently had [...] it back to normal. documented in this encounterHolzer [facility] System04-30-2025 Miscellaneous Notes* Telephone Encounter - Agusto Gray CNA - 12/18/2024 12:37 PM EDT Last OV: 10/09/24 Next OV: 01/08/25 OARRS appropriate: yes Last UDS: 04/24/24 Pharmacy: [facility] documented in this encounterHolzer Health System04-30-2025 Telephone encounter Note* Telephone Encounter - Agusto Gray CNA - 12/18/2024 12:37 PM EDT Last OV: 10/09/24 Next OV: 01/08/25 OARRS appropriate: yes Last UDS: 04/24/24 Pharmacy[facility] History of Present illness Narrative* Cory Angeles DPM - 12/05/2024 1:00 PM EDT Patient: Aislinn Wheeler : 1960 PCP: Kofi Gotti MD SUBJECTIVE This is a 64 y.o. female that presents today 18 days s/p right foot foreign body removal with I andD Pt denies n/f/v/c and has minimal pain to post op site. Pt states that they have been keeping dressing dry and intact and have been weight-bearing to post op foot. Patient has finished oral antibiotics and was last seen at [facility] inpatient Pt presents today for follow up. Patient is type 2 diabetic with uncontrolled sugars Allergies: Allergies Allergen Reactions Latex Rash Added based on information entered during case entry, please review and add reactions, type, and severity as needed Past Medical History: Past Medical History: Diagnosis Date Amputation of left great toe ([facility]) Cervical cancer ([facility]) 10/11/2023 had Hysterectomy Charcot's joint of foot, left 10/11/2023 Chronic kidney disease, stage III (moderate) ([facility]) ([facility]) 10/11/2023 Fatty liver 10/11/2023 History of hysterectomy [...] of nail of digit of hand Osteoporosis ([facility]) 10/11/2023 Post-menopausal 10/11/2023 Rheumatoid arthritis ([facility]) 10/11/2023 RSD (reflex sympathetic dystrophy) 10/11/2023 Type 2 diabetes mellitus with diabetic neuropathy, unspecified whether oil heaterman insulin use ([facility]) 10/11/2023 Visual impairment 10/11/2023 HAD BILATERAL CATARCT [...] Reported on 12/04/2024), Disp: , Rfl: HYDROcodone-acetaminophen (Creston) 7.5-325 MG tablet, Take 1 tablet by [...] 1 tablet (50 mg) by mouth Daily, Disp:90 tablet, Rfl: 0 nitroglycerin (Nitrostat) 0.4 MG SL tablet, Place 0.4 mg under the tongue every 5 (five) minutes ifneeded for chest pain, Disp: , Rfl: ondansetron [...] polyneuropathy, with long-term current use of insulin ([facility]) PLAN Patient may returned to normal shoe gear and discontinue antibiotics and contact Podiatry if any further issues Patient educated today on proper diabetic foot care including monitoring feet daily for any signs of infection openings in the skin or irregularities to both feet. Patient had a diabetic neurologicalexam today to both their feet and discussed proper shoe gear. Cory Angeles DPM documented in this encounterCitizens Memorial [id number] History of Present illness Narrative* Agusto Olmstead NP - 12/04/2024 12:57 PM EDTAssociated Problem(s): Memory impairment Will send for neuropsych evaluation to determine if underlying issue contributes to non compliance * Agusto Olmstead NP - 12/04/2024 12:55 PM EDTAssociated Problem(s): Non compliance w medication regimen Difficulty with follow ups, taking all meds and getting to all appts Now has pt advocate, Reyes Canela * Agusto Olmstead NP - 12/04/2024 12:55 PM EDTAssociated Problem(s): Type 2 diabetes mellitus with hyperglycemia, with long-term current use of insulin ([facility]) Check blood sugars daily, notify if <70 [...] 08/13 10.1% * Agusto Olmstead NP - 12/04/2024 12:55 PM EDTAssociated Problem(s): Neurogenic bladder Refer to [facility] for second opinion about possible surgical options * Agusto Olmstead NP - 12/04/2024 12:54 PM EDTAssociated Problem(s): Acute renal failure ([facility]) Recent hospitalization for this Needs to be compliant with fu with Nephrology Phone number given * Agusto Olmstead NP - 12/04/2024 12:53 PM EDTAssociated Problem(s): Type 2 diabetes mellitus with diabetic neuropathy, with long-term current use of insulin ([facility]) Recommend freq foot checks, proper fitting shoes And better glucose control * Agusto Olmstead NP - 12/04/2024 11:00 AM EDT Images from the original note were not included. Aislinn Wheeler is a 64 y.o. female presents with chief complaint of Follow-up ([facility] hospital f/up) HPI: Here for hospital fu: was sent by myself (after review of labs dated 11/21/24) ANATOLIY, hyperkalemia Reviewed notes from [facility] for specialty and labs and stress test [...] (LASIX) 40 mg, 2 times daily HYDROcodone-acetaminophen (Creston) 7.5-325 MG tablet 1 tablet, 3 times [...] Diagnosis Date Amputation of left great toe ([facility]) Cervical cancer ([facility]) 10/11/2023 had Hysterectomy Charcot's joint of foot, left 10/11/2023 Chronic kidney disease, stage III (moderate) ([facility]) ([facility]) 10/11/2023 Fatty liver 10/11/2023 History of hysterectomy [...] of nail of digit of hand Osteoporosis ([facility]) 10/11/2023 Post-menopausal 10/11/2023 Rheumatoid arthritis ([facility]) 10/11/2023 RSD (reflex sympathetic dystrophy) 10/11/2023 Type 2 diabetes mellitus with diabetic neuropathy, unspecified whether oil heaterman insulin use ([facility]) 10/11/2023 Visual impairment 10/11/2023 HAD BILATERAL CATARCT [...] healing, skin is pealing, no drainage noted, notwarm to touch Neurological: General: No focal deficit present. Mental Status: She is alert and oriented to person, place, and time. Psychiatric: Mood and Affect: Mood normal. Behavior: Behavior normal. Thought Content: Thought content normal. Judgment: Judgment normal. ASSESSMENT AND PLAN: No follow-ups on file. Problem List Items Addressed This Visit Type 2 diabetes mellitus with hyperglycemia, with long-term current use of insulin ([facility]) Check blood sugars daily, notify if <70 [...] 9.4% 11/18/24, 08/13 10.1% Essential (primary) hypertension ([facility]) Please check blood pressure daily and record DASH diet Limit caffeine Take medication as directed Contact office if chest pain, pressure, dizziness, shortness of breath, swelling legs Recommend slow position changes Current meds: amlodipine and metoprolol Type 2 diabetes mellitus with diabetic neuropathy, with long-term current use of insulin ([facility]) Recommend freq foot checks, proper fitting shoes And better glucose control Chronic kidney disease, stage 4 (severe) ([facility]) - Primary Long standing uncontrolled HTN and DM Multiple attempts to get pt to specialists, does not follow through She is established with local Mail Clerk Goal: bp and DM control, although there again her compliance with blood sugar checking is difficult. She has been referred to local area Endo and [facility]er [facility], but does not go to her appts as scheduled and has been discharged, and does not appear to have a strong support system Relevant Orders Basic metabolic panel CBC and differential USP (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 ([facility]) Non compliance w medication regimen Difficulty with follow ups, taking all meds and getting to all appts Now has pt advocate, Reyes Canela Acute renal failure ([facility]) Recent hospitalization for this Needs to be compliant with fu with Nephrology Phone number given History of neurogenic bladder Memory impairment Will send for neuropsych evaluation to determine if underlying issue contributes to non compliance Relevant Orders Ambulatory referral to Neuropsychology * Agusto Olmstead NP - 12/04/2024 6:27 AM EDTAssociated Problem(s): Essential (primary) hypertension (CMS/HCC) Please check blood pressure daily and record DASH diet Limit caffeine Take medication as directed Contact office if chest pain, pressure, dizziness, shortness of breath, swelling legs Recommend slow position changes Current meds: amlodipine and metoprolol * Agusto Olmstead NP - 12/04/2024 6:26 AM EDTAssociated Problem(s): Chronic kidney disease, stage 4 (severe) (CMS/HCC) Long standing uncontrolled HTN and DM Multiple attempts to get pt to specialists, does not follow through She is established with local Mail Clerk Goal: bp and DM control, although there again her compliance with blood sugar checking is difficult. She has been referred to local area Endo and [facility], but does not go to her appts as scheduled and has been discharged, and does not appear to have a strong support system documented in this encounterCitizens Memorial [id number] Instructions* Patient Instructions* Agusto Olmstead NP - 12/04/2024 11:00 AM EDT Box Tender Aleksey, please call him to schedule an appointment: I have attached the letter he sent you. Kidney doctor: please call them to make sure you have a follow up appointment: [facility] [place], [place] [address], phone: [phone] Foot doctor: Dr Enrique, call his office to see about a follow up appt for them to check your foot. [phone] I would also like to have you see a Neuropsychiatrist: this is a doctor that helps us figure out more about your memory, like to see if this is related to depression/anxiety , or dementia, or other things, Dr Gonzalez [phone] they should call you documented in this encounterCitizens Memorial [id number] Progress note Author Akin [facility] Note Date/Time November 26, 2024 11:5 3am [facility] [address] [place] [address] Nephrology Progress Note Signed Patient: Aislinn Wheeler MR#: [id number] : 1960 Acct:[id number] Age/Sex: 64 / F Adm Date: 5 Loc: Room: [address] [place] [address] Type: ADM IN Attending Dr: Demian Dorantes [...] has [facility] improvement. [facility] that she was advised to have a major surgery that she opted against it. She reported now she is referred to the [facility] by her PCP. Patient has a [...] 20 Mg Tablet) 20 mg PO DAILY [facility] Stop: 11/24/25 08:59 Last Admin: 11/26/24 09:36 Dose: 20 mg Dextrose (Dextrose 50% In Water 25 Gm/50 Ml Syringe) 0 gm IV-PUSH PRN PRN PRN Reason: Hypoglycemia Stop: 11/24/25 02:41 Ergocalciferol (Ergocalciferol 1,250 Mcg (50,000 Units) Capsule) 1,250 mcg PO Mo@0900 [facility] Stop: 12/02/25 08:59 Ferrous Sulfate (Ferrous Sulfate 324 Mg Tablet.Dr) 324 mg PO DAILY [facility] Stop: 11/24/25 08:59 Last Admin: 11/26/24 09:36 Dose: 324 mg Fluticasone Propionate (Fluticasone Propionate Natalbany 120 Natalbany/16 Gm Bottle) 2 spray INTRANASAL DAILY PRN PRN Reason: nasal congestion Stop: 11/23/25 18:54 Glucose (Dextrose 40% Gel 15 Gm Tube) 0 gm PO PRN PRN PRN Reason: Hypoglycemia Stop: 11/24/25 02:41 Heparin Sodium (Porcine) (Heparin 5,000 Unit/Ml Vial) 5,000 unit SUBCUT Q12HR [facility] Stop: 11/23/25 20:59 Last Admin: 11/26/24 09:37 Dose: 5,000 unit Hydralazine HCl (Hydralazine 20 Mg/Ml Vial) 10 mg IV-PUSH Q6H PRN PRN Reason: if SBP > 185 Stop: 11/23/25 18:48 Last Admin: 11/25/24 12:40 Dose: 10 mg Ampicillin Sodium/Sulbactam Sodium (Unasyn) 3 gm in 100 mls @ 200 mls/hr IV Q12H [facility] Last Admin: 11/26/24 09:36 Dose: 200 mls/hr Insulin Aspart (Insulin Aspart 300 Units/3 Ml) 0 units SUBCUT TID.WITH.MEALS [facility]; Protocol Stop: 11/24/25 07:59 Last Admin: 11/26/24 09:37 Dose: 4 units Insulin Aspart (Insulin Aspart 300 Units/3 Ml) 0 units SUBCUT TID.WM.HS [facility]; Protocol Stop: 11/24/25 07:59 Last Admin: 11/26/24 08:28 Dose: Not Given Insulin Glargine (Insulin Glargine 300 Units/3 Ml Insuln.Pen) 28 units SUBCUT QHS [facility] Stop: 11/23/25 21:59 Last Admin: 11/25/24 [...] Tab.Er.24h) 50 mg PO DAILY [facility] Stop: 11/25/25 08:59 Last Admin: 11/26/24 09:36 Dose: 50 mg Nitroglycerin (Nitroglycerin 0.4 Mg Tab.Subl) 0.4 mg SUBLINGUAL Q5M PRN PRN Reason: chest pain Stop: 11/23/25 18:54 Ondansetron HCl (Ondansetron Odt 4 Mg Tab.Rapdis) 4 mg PO Q8HR PRN PRN Reason: nausea and vomiting Stop: 11/23/25 18:54 Pantoprazole Sodium (Pantoprazole 40 Mg Tablet.Dr) 40 mg PO DAILY [facility] Stop: 11/24/25 08:59 Last Admin: 11/26/24 09:36 Dose: 40 mg Pregabalin (Pregabalin 150 Mg Capsule) 150 mg PO Q8HR [facility] Stop: 05/22/25 21:59 Last Admin: 11/26/24 [...] She follows with the urology outpatient at [facility]. (5) Neurogenic bladder: Assessment/Problem Details: She has a neurogenic bladder and was seen by the urology at [facility]. She was recommended to have a surgical intervention but opted against this. She is referred to now urogynecologist at [facility] for second opinion. (6) Diabetes: Assessment/Problem [...] <Electronically signed by MD Akin Dougherty> 11/26/24 1153 [facility] Work Phone: 1(251) 590-614104-08-2025 [place] [address] Nephrology Progress Note Signed Patient: Aislinn Wheeler MR#: [id number] : 1960 Acct:[id number] Age/Sex: 64 / F Adm Date: 5 Loc: Room: [address] [place] [address] Type: ADM IN Attending Dr: Demian Dorantes [...] has no improvement. [facility] that she was advised to have a major surgery that she opted against it. She reported now she is referred to the [facility] by her PCP. Patient has a [...] 20 Mg Tablet) 20 mg PO DAILY [facility] Stop: 11/24/25 08:59 Last Admin: 11/26/24 09:36 Dose: 20 mg Dextrose (Dextrose 50% In Water 25 Gm/50 Ml Syringe) 0 gm IV-PUSH PRN PRN PRN Reason: Hypoglycemia Stop: 11/24/25 02:41 Ergocalciferol (Ergocalciferol 1,250 Mcg (50,000 Units) Capsule) 1,250 mcg PO Mo@0900 [facility] Stop: 12/02/25 08:59 Ferrous Sulfate (Ferrous Sulfate 324 Mg Tablet.Dr) 324 mg PO DAILY [facility] Stop: 11/24/25 08:59 Last Admin: 11/26/24 09:36 Dose: 324 mg Fluticasone Propionate (Fluticasone Propionate Natalbany 120 Natalbany/16 Gm Bottle) 2 spray INTRANASAL DAILY PRN PRN Reason: nasal congestion Stop: 11/23/25 18:54 Glucose (Dextrose 40% Gel 15 Gm Tube) 0 gm PO PRN PRN PRN Reason: Hypoglycemia Stop: 11/24/25 02:41 Heparin Sodium (Porcine) (Heparin 5,000 Unit/Ml Vial) 5,000 unit SUBCUT Q12HR [facility] Stop: 11/23/25 20:59 Last Admin: 11/26/24 09:37 Dose: 5,000 unit Hydralazine HCl (Hydralazine 20 Mg/Ml Vial) 10 mg IV-PUSH Q6H PRN PRN Reason: if SBP > 185 Stop: 11/23/25 18:48 Last Admin: 11/25/24 12:40 Dose: 10 mg Ampicillin Sodium/Sulbactam Sodium (Unasyn) 3 gm in 100 mls @ 200 mls/hr IV Q12H [facility] Last Admin: 11/26/24 09:36 Dose: 200 mls/hr Insulin Aspart (Insulin Aspart 300 Units/3 Ml) 0 units SUBCUT TID.WITH.MEALS [facility]; Protocol Stop: 11/24/25 07:59 Last Admin: 11/26/24 09:37 Dose: 4 units Insulin Aspart (Insulin Aspart 300 Units/3 Ml) 0 units SUBCUT TID.WM.HS [facility]; Protocol Stop: 11/24/25 07:59 Last Admin: 11/26/24 08:28 Dose: Not Given Insulin Glargine (Insulin Glargine 300 Units/3 Ml Insuln.Pen) 28 units SUBCUT QHS [facility] Stop: 11/23/25 21:59 Last Admin: 11/25/24 21:09 Dose: 28 units Loratadine (Loratadine 10 Mg Tablet) 10 mg PO DAILY PRN PRN Reason: allergy symptoms Stop: 11/23/25 20:59 Melatonin (Melatonin 5 Mg Tablet) 5 mg PO QHS PRN PRN Reason: insomnia Stop: 11/26/25 21:59 Last Admin: 11/25/24 23:35 Dose: 5 mg Metoprolol Succinate (Metoprolol Succinate 50 Mg Tab.Er.24h) 50 mg PO DAILY [facility] Stop: 11/25/25 08:59 Last Admin: 11/26/24 09:36 Dose: 50 mg Nitroglycerin (Nitroglycerin 0.4 Mg Tab.Subl) 0.4 mg SUBLINGUAL Q5M PRN PRN Reason: chest pain Stop: 11/23/25 18:54 Ondansetron HCl (Ondansetron Odt 4 Mg Tab.Rapdis) 4 mg PO Q8HR PRN PRN Reason: nausea and vomiting Stop: 11/23/25 18:54 Pantoprazole Sodium (Pantoprazole 40 Mg Tablet.Dr) 40 mg PO DAILY [facility] Stop: 11/24/25 08:59 Last Admin: 11/26/24 09:36 Dose: 40 mg Pregabalin (Pregabalin 150 Mg Capsule) 150 mg PO Q8HR [facility] Stop: 05/22/25 21:59 Last Admin: 11/26/24 [...] She follows with the urology outpatient at [facility]. (5) Neurogenic bladder: Assessment/Problem Details: She has a neurogenic bladder and was seen by the urology at [facility]. She was recommended to have a surgical intervention but opted against this. She is referred to now urogynecologist at [facility] for second opinion. (6) Diabetes: Assessment/Problem [...] MD 11/26/24 1147 Signed By: 11/26/24 1153 [facility]04-07-2025 Progress note Author Jodi Merchant [facility] Note Date/Time November 25, 2024 8:08 pm [facility] [address] [place] [address] Hospitalist Progress Note Signed Patient: Aislinn Wheeler MR#: [id number] : 1960 Acct:[id number] Age/Sex: 64 / F Adm Date: 5 Loc: Room: [address] [place] [address] Type: ADM IN Attending Dr: Demian Dorantes [...] Propionate 2 spray 11/23/24 18:55 Fluticasone Propionate Natalbany 120 Natalbany/16 Gm Bottle INTRANASAL 11/23/25 18:54 DAILY PRN [...] Sterile Water IV 11/23/25 18:59 75 mls/hr .[id number] [facility] Administration Ampicillin Sodium/Sulbactam Sodium 3 gm in 100 mls @ 200 mls/hr 11/23/24 20:30 11/24/24 20:37 Unasyn IV 200 mls/hr Q12H [facility] Administration Insulin Aspart 0 units 11/24/24 08:00 11/25/24 09:11 Insulin Aspart 300 Units/3 Ml SUBCUT 11/24/25 07:59 Not Given TID.WITH.MEALS [facility] Protocol Insulin Aspart 0 units 11/24/24 08:00 11/25/24 09:11 Insulin Aspart 300 Units/3 Ml SUBCUT 11/24/25 07:59 Not Given TID.WM.HS [facility] Protocol Insulin Glargine 28 units 11/23/24 22:00 11/24/24 21:59 Insulin Glargine 300 Units/3 Ml Insuln.Pen SUBCUT 11/23/25 21:59 28 units QHS [facility] Administration Loratadine 10 mg 11/23/24 21:00 [...] <Electronically signed by Demian Dorantes MD> 11/25/242007 [facility] Work Phone: [phone]) 473-675904-07-2025 [place] [address] Hospitalist Progress Note Signed Patient: Aislinn Wheeler MR#: [id number] : 1960 Acct:[id number] Age/Sex: 64 / F Adm Date: 5 Loc: 3T Room: [address] [place] [address] Type: ADM IN Attending Dr: Demian Dorantes [...] Propionate 2 spray 11/23/24 18:55 Fluticasone Propionate Natalbany 120 Natalbany/16 Gm Bottle INTRANASAL 11/23/25 18:54 DAILY PRN [...] Sterile Water IV 11/23/25 18:59 75 mls/hr .[id number] [facility] Administration Ampicillin Sodium/Sulbactam Sodium 3 gm in 100 mls @ 200 mls/hr 11/23/24 20:30 11/24/24 20:37 Unasyn IV 200 mls/hr Q12H [facility] Administration Insulin Aspart 0 units 11/24/24 08:00 11/25/24 09:11 Insulin Aspart 300 Units/3 Ml SUBCUT 11/24/25 07:59 Not Given TID.WITH.MEALS [facility] Protocol Insulin Aspart 0 units 11/24/24 08:00 11/25/24 09:11 Insulin Aspart 300 Units/3 Ml SUBCUT 11/24/25 07:59 Not Given TID.WM.HS [facility] Protocol Insulin Glargine 28 units 11/23/24 22:00 [...] 03/14 1153 Signed By: 11/25/24 1601 11/25/242007 [facility]04-07-2025 Progress note Author Irena Haro [facility] Note Date/Time November 25, 2024 3:30 pm [facility] [address] [place] [address] Cardiology Progress Note Signed Patient: Aislinn Wheeler MR#: [id number] : 1960 Acct:[id number] Age/Sex: 64 / F Adm Date: 5 Loc: Room: [address] [place] [address] Type: ADM IN Attending Dr: Demian Dorantes MD Copies to: ~ Date of Service: 11/25/2024 Subjective Interval history: Ms. Wheeler is a 64 year old female who was admitted to [facility] initially for hyperkalemia. She has a long [...] stress test around 2 years ago at [facility] which was normal per patient. Here, her [...] signed by Irena Haro MD> 11/25/24 1530 [facility] Work Phone: [phone]) 643-666804-07-2025 [place] [address] Cardiology Progress Note Signed Patient: Aislinn Wheeler MR#: [id number] : 1960 Acct:[id number] Age/Sex: 64 / F Adm Date: 5 Loc: Room: [address] [place] [address] Type: ADM IN Attending Dr: Demian Dorantes MD Copies to: ~ Date of Service: 11/25/2024 Subjective Interval history: Ms. Wheeler is a 64 year old female who was admitted to [facility] initially for hyperkalemia. She has a long [...] a stresstest around 2 years ago at [facility] which was normal per patient. Here, her [...] MD 11/25/24 1525 Signed By: 11/25/24 1530 [facility]04-07-2025 Nuclear medicine Diagnostic study [facility] [address] [place] [address] Nuclear Medicine Report Signed Patient: Aislinn Wheeler MR#: [id number] : 1960 Acct:[id number] Age/Sex: 64 / F ADM Date: 5 Loc: Room: [address] [place] [address] Type: ADM IN Attending Dr: Demian Dorantes [...] Irena Haro M.D.11/25/2024 3:24 PM Dictation Location: [id number] Transcribed By: AMEE 11/25/24 1524 Dictated By: Irena Haro MD 11/25/24 1523 Signed By: 11/25/24 1524 [facility] Work Phone: [phone]) 196-295204-07-2025 Progress note Author Robertodella Ladonna [facility] Note Date/Time November 25, 2024 12:4 2pm [facility] [address] [place] [address] Nephrology Progress Note Signed Patient: Aislinn Wheeler MR#: [id number] : 1960 Acct:[id number] Age/Sex: 64 / F Adm Date: 5 Loc: Room: [address] [place] [address] Type: ADM IN Attending Dr: Demian Dorantes [...] has no improvement. [facility] that she was advised to have a major surgery that she opted against it. She reported now she is referred to the [facility] by her PCP. Patient has a [...] [facility] Stop: 11/24/25 08:59 Last Admin: 11/25/24 09:10 Dose: Not Given Atorvastatin Calcium (Atorvastatin 20 Mg Tablet) 20 mg PO DAILY [facility] Stop: 11/24/25 08:59 Last Admin: 11/25/24 09:02 Dose: 20 mg Dextrose (Dextrose 50% In Water 25 Gm/50 Ml Syringe) 0 gm IV-PUSH PRN PRN PRN Reason: Hypoglycemia Stop: 11/24/25 02:41 Ergocalciferol (Ergocalciferol 1,250 Mcg (50,000 Units) Capsule) 1,250 mcg PO Mo@0900 [facility] Stop: 12/02/25 08:59 Ferrous Sulfate (Ferrous Sulfate 324 Mg Tablet.Dr) 324 mg PO DAILY [facility] Stop: 11/24/25 08:59 Last Admin: 11/25/24 09:02 Dose: 324 mg Fluticasone Propionate (Fluticasone Propionate Natalbany 120 Natalbany/16 Gm Bottle) 2 spray INTRANASAL DAILY PRN PRN Reason: nasal congestion Stop: 11/23/25 18:54 Glucose (Dextrose 40% Gel 15 Gm Tube) 0 gm PO PRN PRN PRN Reason: Hypoglycemia Stop: 11/24/25 02:41 Heparin Sodium (Porcine) (Heparin 5,000 Unit/Ml Vial) 5,000 unit SUBCUT Q12HR [facility] Stop: 11/23/25 20:59 Last Admin: 11/25/24 09:02 Dose: 5,000 unit Hydralazine HCl (Hydralazine 20 Mg/Ml Vial) 10 mg IV-PUSH Q6H PRN PRN Reason: if SBP > 185 Stop: 11/23/25 18:48 Last Admin: 11/24/24 11:05 Dose: 10 mg Sodium Bicarbonate 150 meq/ (Sterile Water) 1,150 mls @ 75 mls/hr IV .[id number] [facility] Stop: 11/23/25 18:59 Last Admin: 11/24/24 21:18 Dose: 75 mls/hr Ampicillin Sodium/Sulbactam Sodium (Unasyn) 3 gm in 100 mls @ 200 mls/hr IV Q12H [facility] Last Admin: 11/24/24 20:37 Dose: 200 mls/hr Insulin Aspart (Insulin Aspart 300 Units/3 Ml) 0 units SUBCUT TID.WITH.MEALS [facility]; Protocol Stop: 11/24/25 07:59 Last Admin: 11/25/24 09:11 Dose: Not Given Insulin Aspart (Insulin Aspart 300 Units/3 Ml) 0 units SUBCUT TID.WM.HS [facility]; Protocol Stop: 11/24/25 07:59 Last Admin: 11/25/24 09:11 Dose: Not Given Insulin Glargine (Insulin Glargine 300 Units/3 Ml Insuln.Pen) 28 units SUBCUT QHS [facility] Stop: 11/23/25 21:59 Last Admin: 11/24/24 21:59 Dose: 28 units Loratadine (Loratadine 10 Mg Tablet) 10 mg PO DAILY PRN PRN Reason: allergy symptoms Stop: 11/23/25 20:59 Metoprolol Succinate (Metoprolol Succinate 50 Mg Tab.Er.24h) 50 mg PO DAILY [facility] Stop: 11/25/25 08:59 Last Admin: 11/25/24 09:03 Dose: Not Given Nitroglycerin (Nitroglycerin 0.4 Mg Tab.Subl) 0.4 mg SUBLINGUAL Q5M PRN PRN Reason: chest pain Stop: 11/23/25 18:54 Ondansetron HCl (Ondansetron Odt 4 Mg Tab.Rapdis) 4 mg PO Q8HR PRN PRN Reason: nausea and vomiting Stop: 11/23/25 18:54 Pantoprazole Sodium (Pantoprazole 40 Mg Tablet.Dr) 40 mg PO DAILY [facility] Stop: 11/24/25 08:59 Last Admin: 11/25/24 09:02 Dose: 40 mg Pregabalin (Pregabalin 150 Mg Capsule) 150 mg PO Q8HR [facility] Stop: 05/22/25 21:59 Last Admin: 11/25/24 06:47 Dose: 150 mg Sodium Chloride (Sodium Chloride 0.9 % 10 Ml Syringe) 0 ml IV-PUSH PRN PRN PRN Reason: Flush Stop: 11/23/25 15:07 Sodium Chloride (Sodium Chloride 0.9 % 10 Ml Syringe) 10 ml IV-PUSH Q8H [facility] Stop: 11/23/25 18:14 Last Admin: 11/25/24 01:37 [...] Raf Potter M.D.11/24/2024 2:48 PM Dictation Location: [place] [address] Any impression(s) listed above is documentation that [...] She follows with the urology outpatient at [facility]. (5) Neurogenic bladder: Assessment/Problem Details: She has a neurogenic bladder and was seen by the urology at [facility]. She was recommended to have a surgical intervention but opted against this. She is referred to now urogynecologist at [facility] for second opinion. (6) Diabetes: Assessment/Problem [...] signed by MD Akin Dougherty> 11/25/24 1242 [facility] Work Phone: 1(288) 142-460404-07-2025 [place] [address] Nephrology Progress Note Signed Patient: Aislinn Wheeler MR#: [id number] : 1960 Acct:[id number] Age/Sex: 64 / F Adm Date: 5 Loc: Room: [address] [place] [address] Type: ADM IN Attending Dr: Demian Dorantes [...] has no improvement. [facility] that she was advised to have a major surgery that she opted against it. She reported now she is referred to the [facility] by her PCP. Patient has a [...] [facility] Stop: 11/24/25 08:59 Last Admin: 11/25/24 09:10 Dose: Not Given Atorvastatin Calcium (Atorvastatin 20 Mg Tablet) 20 mg PO DAILY [facility] Stop: 11/24/25 08:59 Last Admin: 11/25/24 09:02 Dose: 20 mg Dextrose (Dextrose 50% In Water 25 Gm/50 Ml Syringe) 0 gm IV-PUSH PRN PRN PRN Reason: Hypoglycemia Stop: 11/24/25 02:41 Ergocalciferol (Ergocalciferol 1,250 Mcg (50,000 Units) Capsule) 1,250 mcg PO Mo@0900 [facility] Stop: 12/02/25 08:59 Ferrous Sulfate (Ferrous Sulfate 324 Mg Tablet.Dr) 324 mg PO DAILY [facility] Stop: 11/24/25 08:59 Last Admin: 11/25/24 09:02 Dose: 324 mg Fluticasone Propionate (Fluticasone Propionate Natalbany 120 Natalbany/16 Gm Bottle) 2 spray INTRANASAL DAILY PRN PRN Reason: nasal congestion Stop: 11/23/25 18:54 Glucose (Dextrose 40% Gel 15 Gm Tube) 0 gm PO PRN PRN PRN Reason: Hypoglycemia Stop: 11/24/25 02:41 Heparin Sodium (Porcine) (Heparin 5,000 Unit/Ml Vial) 5,000 unit SUBCUT Q12HR [facility] Stop: 11/23/25 20:59 Last Admin: 11/25/24 09:02 Dose: 5,000 unit Hydralazine HCl (Hydralazine 20 Mg/Ml Vial) 10 mg IV-PUSH Q6H PRN PRN Reason: if SBP > 185 Stop: 11/23/25 18:48 Last Admin: 11/24/24 11:05 Dose: 10 mg Sodium Bicarbonate 150 meq/ (Sterile Water) 1,150 mls @ 75 mls/hr IV .[id number] [facility] Stop: 11/23/25 18:59 Last Admin: 11/24/24 21:18 Dose: 75 mls/hr Ampicillin Sodium/Sulbactam Sodium (Unasyn) 3 gm in 100 mls @ 200 mls/hr IV Q12H [facility] Last Admin: 11/24/24 20:37 Dose: 200 mls/hr Insulin Aspart (Insulin Aspart 300 Units/3 Ml) 0 units SUBCUT TID.WITH.MEALS [facility]; Protocol Stop: 11/24/25 07:59 Last Admin: 11/25/24 09:11 Dose: Not Given Insulin Aspart (Insulin Aspart 300 Units/3 Ml) 0 units SUBCUT TID.WM.HS [facility]; Protocol Stop: 11/24/25 07:59 Last Admin: 11/25/24 09:11 Dose: Not Given Insulin Glargine (Insulin Glargine 300 Units/3 Ml Insuln.Pen) 28 units SUBCUT QHS [facility] Stop: 11/23/25 21:59 Last Admin: 11/24/24 21:59 Dose: 28 units Loratadine (Loratadine 10 Mg Tablet) 10 mg PO DAILY PRN PRN Reason: allergy symptoms Stop: 11/23/25 20:59 Metoprolol Succinate (Metoprolol Succinate 50 Mg Tab.Er.24h) 50 mg PO DAILY [facility] Stop: 11/25/25 08:59 Last Admin: 11/25/24 09:03 Dose: Not Given Nitroglycerin (Nitroglycerin 0.4 Mg Tab.Subl) 0.4 mg SUBLINGUAL Q5M PRN PRN Reason: chest pain Stop: 11/23/25 18:54 Ondansetron HCl (Ondansetron Odt 4 Mg Tab.Rapdis) 4 mg PO Q8HR PRN PRN Reason: nausea and vomiting Stop: 11/23/25 18:54 Pantoprazole Sodium (Pantoprazole 40 Mg Tablet.Dr) 40 mg PO DAILY [facility] Stop: 11/24/25 08:59 Last Admin: 11/25/24 09:02 Dose: 40 mg Pregabalin (Pregabalin 150 Mg Capsule) 150 mg PO Q8HR [facility] Stop: 05/22/25 21:59 Last Admin: 11/25/24 06:47 Dose: 150 mg Sodium Chloride (Sodium Chloride 0.9 % 10 Ml Syringe) 0 ml IV-PUSH PRN PRN PRN Reason: Flush Stop: 11/23/25 15:07 Sodium Chloride (Sodium Chloride 0.9 % 10 Ml Syringe) 10 ml IV-PUSH Q8H [facility] Stop: 11/23/25 18:14 Last Admin: 11/25/24 01:37 [...] Raf Potter M.D.11/24/2024 2:48 PM Dictation Location: [place] [address] Any impression(s) listed above is documentation that [...] She follows with the urology outpatient at [facility]. (5) Neurogenic bladder: Assessment/Problem Details: She has a neurogenic bladder and was seen by the urology at [facility]. She was recommended to have a surgical intervention but opted against this. She is referred to now urogynecologist at [facility] for second opinion. (6) Diabetes: Assessment/Problem [...] MD 11/25/24 1233 Signed By: 11/25/24 1242 [facility]04-06-2025 History and physical note Author Diane Smith [facility] Note Date/Time November 24, 2024 5:58 pm [facility] [address] [place] [address] Hospitalist H&P Signed Patient: Aislinn Wheeler MR#: [id number] : 1960 Acct:[id number] Age/Sex: 64 / F Adm Date: 5 Loc: Room: [address] [place] [address] Type: ADM IN Attending Dr: Diane Smith MD Copies to: Agusto Olmstead, GRANULATING MACHINE OPERATOR-C Diane Smith MD~ HPI DATE OF EXAMINATION: 11/23/24 CHIEF COMPLAINT: Called from PCP to come for further workup HISTORY OF PRESENT ILLNESS: This is a 64 y.o female with past medical history of type 2 diabetes with nephropathy and neuropathy, CKD Stage IV, low capacity overactive bladder with straight cathing twice a day, follows with [facility] urology and was seenby our urology [...] her right foot stuck there, Dr. Chilel Research Editor could not remove it in the office, [...] negative unless noted below or in HPI [facility] Medical History Hypertension CKD (chronic kidney disease) [...] % (Auto) 37.2 % (.) 11/23/24 16:51 Upson % (Auto) 6.9 % (.) 11/23/24 16:51 Eos % (Auto) 3.1 % (.) 11/23/24 16:51 Baso % (Auto) 1.0 % (.) 11/23/24 16:51 Nucleat RBC Rel Count 0.1 /100 WBC (0-0.5) 11/23/24 16:51 Neut # (Auto) 3.3 x10E3/uL (1.8-7.7) 11/23/24 16:51 Lymph # (Auto) 2.4 x10E3/uL (1.00-4.8) 11/23/24 16:51 Upson # (Auto) 0.4 x10E3/uL (0.0-0.8) 11/23/24 16:51 [...] pH 6.0 (5.0-9.0) 11/23/24 16:11 Ur Specific Aurora 1.010 (1.001-1.030) 11/23/24 16:11 Urine Protein 100 [...] 9 pm -Spoke to Dr. Mcmullen, Cardiology senior integration developer, showed him the EKG x1 that was [...] 75 Documented By: Diane Smith MD 11/23/24 7577 Signed By: <Electronically signed by Diane Smith MD> 11/24/24 5245 [facility] Work Phone: 1(717) 710-608504-06-2025 Progress note Author Irena Schuster [facility] Note Date/Time November 24, 2024 5:58 pm [facility] [address] [place] [address] Hospitalist Progress Note Signed Patient: Aislinn Wheeler MR#: [id number] : 1960 Acct:[id number] Age/Sex: 64 / F Adm Date: 5 Loc: 3T Room: [address] [place] [address] Type: ADM IN Attending Dr: Diane Smith [...] Propionate 2 spray 11/23/24 18:55 Fluticasone Propionate Natalbany 120 Natalbany/16 Gm Bottle INTRANASAL 11/23/25 18:54 DAILY PRN [...] Sterile Water IV 11/23/25 18:59 75 mls/hr .[id number] UZIEL Administration Ampicillin Sodium/Sulbactam Sodium 3 gm in 100 mls @ 200 mls/hr 11/23/24 20:30 11/23/24 23:10 Unasyn IV 200 mls/hr Q12H UZIEL Administration Insulin Aspart 0 units 11/24/24 08:00 Insulin Aspart 300 Units/3 Ml SUBCUT 11/24/25 07:59 TID.WITH.MEALS [facility] Protocol Insulin Aspart 0 units 11/24/24 08:00 Insulin Aspart 300 Units/3 Ml SUBCUT 11/24/25 07:59 TID.WM.HS [facility] Protocol Insulin Glargine 28 units 11/23/24 [...] <Electronically signed by Diane Smith MD> 11/24/24 1750 [facility] Work Phone: 1(207) 201-274504-06-2025 [place] [address] Hospitalist H&P Signed Patient: Aislinn Wheeler MR#: [id number] : 1960 Acct:[id number] Age/Sex: 64 / F Adm Date: 5 Loc: Room: [address] [place] [address] Type: ADM IN Attending Dr: Diane Smith MD Copies to: Agusto Olmstead, GRANULATING MACHINE OPERATOR-C Diane Smith MD~ HPI DATE OF EXAMINATION: 11/23/24 CHIEF COMPLAINT: Called from PCP to come for further workup HISTORY OF PRESENT ILLNESS: This is a 64 y.o female with past medical history of type 2 diabetes with nephropathy and neuropathy, CKD Stage IV, low capacity overactive bladder with straight cathing twice a day, follows with [facility] urology and was seenby our urology [...] in her right foot stuck there,Dr. Chilel Research Editor could not remove it in the office, [...] negative unless noted below or in HPI [facility] Medical History Hypertension CKD (chronic kidney disease) [...] % (Auto) 37.2 % (.) 11/23/24 16:51 Upson % (Auto) 6.9 % (.) 11/23/24 16:51 Eos % (Auto) 3.1 % (.) 11/23/24 16:51 Baso % (Auto) 1.0 % (.) 11/23/24 16:51 Nucleat RBC Rel Count 0.1 /100 WBC (0-0.5) 11/23/24 16:51 Neut # (Auto) 3.3 x10E3/uL (1.8-7.7) 11/23/24 16:51 Lymph # (Auto) 2.4 x10E3/uL (1.00-4.8) 11/23/24 16:51 Upson # (Auto) 0.4 x10E3/uL (0.0-0.8) 11/23/24 16:51 [...] pH 6.0 (5.0-9.0) 11/23/24 16:11 Ur Specific Aurora 1.010 (1.001-1.030) 11/23/24 16:11 Urine Protein 100 [...] 9 pm -Spoke to Dr. Mcmullen, Cardiology senior integration developer, showed him the EKG x1 that was [...] (min): 75 Documented By: Diane Smith MD 11/23/247 Signed By: 11/24/24 1758 [facility]04-06-2025 [place] [address] Hospitalist Progress Note Signed Patient: Aislinn Wheeler MR#: [id number] : 1960 Acct:[id number] Age/Sex: 64 / F Adm Date: 5 Loc: 3T Room: [address] [place] [address] Type: ADM IN Attending Dr: Diane Smith [...] Propionate 2 spray 11/23/24 18:55 Fluticasone Propionate Natalbany 120 Natalbany/16 Gm Bottle INTRANASAL 11/23/25 18:54 DAILY PRN [...] Sterile Water IV 11/23/25 18:59 75 mls/hr .[id number] UZIEL Administration Ampicillin Sodium/Sulbactam Sodium 3 gm in 100 mls @ 200 mls/hr 11/23/24 20:30 11/23/24 23:10 Unasyn IV 200 mls/hr Q12H UZIEL Administration Insulin Aspart 0 units 04/06/25 08:00 Insulin Aspart 300 Units/3 Ml SUBCUT 11/24/25 07:59 TID.WITH.MEALS [facility] Protocol Insulin Aspart 0 units 11/24/24 08:00 Insulin Aspart 300 Units/3 Ml SUBCUT 11/24/25 07:59 TID.WM.HS [facility] Protocol Insulin Glargine 28 units 11/23/24 [...] Syringe IV-PUSH 11/23/25 18:14 Not Given Q8H [facility] A&P - Hospitalist Assessment/Plan (1) Neurogenic bladder: [...] 1010 Signed By: 11/24/24 1300 11/24/24 1758 [facility]04-06-2025 Consult note Author Galo Mcmullen [facility] Note Date/Time November 24, 2024 2:54 pm [facility] [address] [place] [address] Cardiology Consult Note Signed Patient: Aislinn Wheeler MR#: [id number] : 1960 Acct:[id number] Age/Sex: 64 / F Adm Date: 5 Loc: Room: [address] [place] [address] Type: ADM IN Attending Dr: Diane Smith MD Copies to: MD Agusto Rose, MARKO Smith MD~ Cardiology HPI History of Present Illness Consult Date: 11/24/24 Reason for Consult: Chest pain HPI: Ms. Wheeler is a 64 year old female who was admitted to [facility] initially for hyperkalemia. She has a long [...] stress test around 2 years ago at [facility] which was normal per patient. Here, her EKG shows nonspecific T wave changes and troponin x 3 negative. She cannot exercise on a treadmill dueto severe diabetic neuropathy and prior amputation of left great toe. Review of Systems Review of Systems All other systems reviewed & are negative unless noted below or in HPI [facility] Medical History Hypertension CKD (chronic kidney disease) [...] Lymph # (Auto) 2.4 2.6 (1.00-4.8) x10E3/uL Upson # (Auto) 0.4 0.4 (0.0-0.8) x10E3/uL Eos [...] ml @ 999 mls/hr IV .Q31M ONE Rx#:[id number] cefTRIAXone 1GM-*NS* 1 gm In 50 50 / 50 ml @ 100 mls/hr IV ONCE ONE Rx #:[id number] Oral 200 / 200 Output: Urine Amount [...] 02/12 1008 Signed By: <Electronically signed by Glao Mcmullen MD> 11/24/24 1454 [facility] Work Phone: 1(230) 618-530804-06-2025 Consult note Author Cory Angeles [facility] Note Date/Time November 24, 2024 12:5 7pm [facility] [address] [place] [address] Podiatry Consult Note Signed Patient: Aislinn Wheeler MR#: [id number] : 1960 Acct:[id number] Age/Sex: 64 / F Adm Date: 5 Loc: Room: [address] [place] [address] Type: ADM IN Attending Dr: Diane Smith MD Copies to: Agusto Olmstead, LUIS-C MD Cory Chi, DPM~ HPI Data of [...] arthralgias noted secondary to RA and lupus [facility] Medical History Hypertension CKD (chronic kidney disease) [...] underlying condition with diabetic polyneuropathy; Z79.4 - USP (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 (3) Foreign body [...] patient most likely will follow-up in the [place] location for Dr. Cory Angeles and recommend make appointment for patient upon discharge. Will order radiographs at this time and no further intervention at this time Documented By: Cory Angeles DPM 11/24/24 1247 Signed By: <Electronically signed by OLIVIA Angeles> 11/24/[address] [place] [address] Work Phone: 1(554) 786-793204-06-2025 [place] [address] Cardiology Consult Note Signed Patient: Aislinn Wheeler MR#: [id number] : 1960 Acct:[id number] Age/Sex: 64 / F Adm Date: 5 Loc: 3T Room: [address] [place] [address] Type: ADM IN Attending Dr: Diane Smith MD Copies to: MD Agusto Rose, GRANULATING MACHINE OPERATOR-C Diane Smith MD~ Cardiology HPI History of Present Illness Consult Date: 11/24/24 Reason for Consult: Chest pain HPI: Ms. Wheeler is a 64 year old female who was admitted to [facility] initially for hyperkalemia. She has a long [...] a stresstest around 2 years ago at [facility] which was normal per patient. Here, her EKG shows nonspecific T wave changes and troponin x 3 negative. She cannot exercise on a treadmill dueto severe diabetic neuropathy and prior amputation of left great toe. Review of Systems Review of Systems All other systems reviewed & are negative unless noted below or in HPI [facility] Medical History Hypertension CKD (chronic kidney disease) [...] Lymph # (Auto) 2.4 2.6 (1.00-4.8) x10E3/uL Upson # (Auto) 0.4 0.4 (0.0-0.8) x10E3/uL Eos [...] ml @ 999 mls/hr IV .Q31M ONE Rx#:[id number] cefTRIAXone 1GM-*NS* 1 gm In 50 50 / 50 ml @ 100 mls/hr IV ONCE ONE Rx #:[id number] Oral 200 / 200 Output: Urine Amount [...] MD 02/12 1008 Signed By: 11/24/24 1454 [facility]04-06-2025 Consult note Author Tyler Valencia [facility] Note Date/Time November 24, 2024 12:1 5pm [facility] [address] [place] [employer], [place] [id number] Nephrology Consult Note Signed Patient: Aislinn Wheeler MR#: [id number] : 1960 Acct:[id number] Age/Sex: 64 / F Adm Date: 5 Loc: Room: [address] [place] [address] Type: ADM IN Attending Dr: Diane Smith MD Copies to: MD Agusto Marks, GRANULATING MACHINE OPERATOR-C Diane Smith MD~ Providers Consult Date: [...] no improvement. She was referred to the [facility] and reported that she was advised to have a major surgery she opted against it. She reported now she is referred to the [facility] by her PCP. Patient has a [...] polydipsia Dermatological: denies any itching or rash [facility] Medical History (Updated 11/24/24 @ 12:05 by [...] Dose: 324 mg Fluticasone Propionate (Fluticasone Propionate Natalbany 120 Natalbany/16 Gm Bottle) 2 spray INTRANASAL DAILY PRN PRN Reason: nasal congestion Stop: 11/23/25 18:54 Glucose (Dextrose 40% Gel 15 Gm Tube) 0 gm PO PRN PRN PRN Reason: Hypoglycemia Stop: 11/24/25 02:41 Heparin Sodium (Porcine) (Heparin 5,000 Unit/Ml Vial) 5,000 unit SUBCUT Q12HR [facility] Stop: 11/23/25 20:59 Last Admin: 11/24/24 09:21 Dose: 5,000 unit Hydralazine HCl (Hydralazine 20 Mg/Ml Vial) 10 mg IV-PUSH Q6H PRN PRN Reason: if SBP > 185 Stop: 11/23/25 18:48 Sodium Bicarbonate 150 meq/ (Sterile Water) 1,150 mls @ 75 mls/hr IV .[id number] [facility] Stop: 11/23/25 18:59 Last Admin: 11/23/24 23:10 Dose: 75 mls/hr Ampicillin Sodium/Sulbactam Sodium (Unasyn) 3 gm in 100 mls @ 200 mls/hr IV Q12H [facility] Last Admin: 11/23/24 23:10 Dose: 200 mls/hr Insulin Aspart (Insulin Aspart 300 Units/3 Ml) 0 units SUBCUT TID.WITH.MEALS [facility]; Protocol Stop: 11/24/25 07:59 Insulin Aspart (Insulin Aspart 300 Units/3 Ml) 0 units SUBCUT TID.WM.HS [facility]; Protocol Stop: 11/24/25 07:59 Insulin Glargine (Insulin Glargine 300 Units/3 Ml Insuln.Pen) 28 units SUBCUT QHS [facility] Stop: 11/23/25 21:59 Last Admin: 11/23/24 [...] 40 Mg Tablet.Dr) 40 mg PO DAILY [facility] Stop: 11/24/25 08:59 Last Admin: 11/24/24 09:21 Dose: 40 mg Pregabalin (Pregabalin 150 Mg Capsule) 150 mg PO Q8HR [facility] Stop: 05/22/25 21:59 Last Admin: 11/24/24 06:48 Dose: 150 mg Sodium Chloride (Sodium Chloride 0.9 % 10 Ml Syringe) 0 ml IV-PUSH PRN PRN PRN Reason: Flush Stop: 11/23/25 15:07 Sodium Chloride (Sodium Chloride 0.9 % 10 Ml Syringe) 10 ml IV-PUSH Q8H [facility] Stop: 11/23/25 18:14 Last Admin: 11/24/24 [...] Skin: No rashes , warm to touch SURFACE GRINDER: Awake,Alert, following simple command Musculoskeletal: No swelling or limitation of movement of the large joints Psychiatric: Cooperative, normal mood and affect Results - Nephrology Labs 11/24/24 05:14 11/24/24 05:14 Labs: 11/23/24 11/23/24 11/23/24 16:11 16:51 20:52 BUN 55 H 54 H Creatinine 2.62 H 2.46 H Phosphorus Albumin 3.4 L Urine Color Colorless Urine Appearance Clear Urine pH 6.0 Ur Specific Aurora 1.010 Urine Protein 100 H Urine Glucose (UA) 500 H Urine Ketones Negative Urine Occult Blood Negative Urine Nitrite Negative Ur Leukocyte Esterase 2+ H Urine RBC 1-2 Urine WBC 5-9 H Urine Bacteria None seen 11/24/24 05:14 BUN 52 H Creatinine 2.37 H Phosphorus 3.9 Albumin 2.9 L Urine Color Urine Appearance Urine pH Ur Specific Aurora Urine Protein Urine Glucose (UA) Urine Ketones [...] Raf Potter M.D.11/24/2024 8:07 AM Dictation Location: [facility]29 Any impression(s) listed above is documentation that [...] She follows with the urology outpatient at [facility]. (5) Neurogenic bladder: Assessment/Problem Details: She has a neurogenic bladder and was seen by the urology at [facility]. She was recommended to have a surgical intervention but opted against this. She is referred to now urogynecologist at [facility] for second opinion. (6) Diabetes: Assessment/Problem [...] <Electronically signed by Tyler Valencia MD> 11/24/[address] [place] [address] Work Phone: 1(468) 489-911004-06-2025 [place] [address] Podiatry Consult Note Signed Patient: Aislinn Wheeler MR#: [id number] : 1960 Acct:[id number] Age/Sex: 64 / F Adm Date: 5 Loc: Room: [address] [place] [address] Type: ADM IN Attending Dr: Diane Smith MD Copies to: Agusto Olmstead, GRANULATING MACHINE OPERATOR-C MD Cory Chi DPM~ HPI Data [...] arthralgias noted secondary to RA and lupus [facility] Medical History Hypertension CKD (chronic kidney disease) [...] underlying condition with diabetic polyneuropathy; Z79.4 - 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 (3) Foreign body [...] patient most likely will follow-up in the [place] location for Dr. Cory menon make appointment for patient upon discharge. Will order radiographs at this time and no further intervention at this time Documented By: Cory Angeles DPM 11/24/24 1247 Signed By: 11/24/24 1257 [facility]04-06-2025 [place] [address] Nephrology Consult Note Signed Patient: Aislinn Wheeler MR#: [id number] : 1960 Acct:[id number] Age/Sex: 64 / F Adm Date: 5 Loc: Room: [address] [place] [address] Type: ADM IN Attending Dr: Diane Smith MD Copies to: MD Agusto Marks, GRANULATING MACHINE OPERATOR-C Diane Smith MD~ Providers Consult Date: [...] no improvement. She was referred to the [facility] and reported that she was advised to have a major surgery she opted against it. She reported now she is referred to the [facility] by her PCP. Patient has a [...] polydipsia Dermatological: denies any itching or rash [facility] Medical History (Updated 11/24/24 @ 12:05 by [...] 324 Mg Tablet.Dr) 324 mg PO DAILY [facility] Stop: 11/24/25 08:59 Last Admin: 11/24/24 09:21 Dose: 324 mg Fluticasone Propionate (Fluticasone Propionate Natalbany 120 Natalbany/16 Gm Bottle) 2 spray INTRANASAL DAILY PRN PRN Reason: nasal congestion Stop: 11/23/25 18:54 Glucose (Dextrose 40% Gel 15 Gm Tube) 0 gm PO PRN PRN PRN Reason: Hypoglycemia Stop: 11/24/25 02:41 Heparin Sodium (Porcine) (Heparin 5,000 Unit/Ml Vial) 5,000 unit SUBCUT Q12HR [facility] Stop: 11/23/25 20:59 Last Admin: 11/24/24 09:21 Dose: 5,000 unit Hydralazine HCl (Hydralazine 20 Mg/Ml Vial) 10 mg IV-PUSH Q6H PRN PRN Reason: if SBP > 185 Stop: 11/23/25 18:48 Sodium Bicarbonate 150 meq/ (Sterile Water) 1,150 mls @ 75 mls/hr IV .[id number] [facility] Stop: 11/23/25 18:59 Last Admin: 11/23/24 23:10 Dose: 75 mls/hr Ampicillin Sodium/Sulbactam Sodium (Unasyn) 3 gm in 100 mls @ 200 mls/hr IV Q12H [facility] Last Admin: 11/23/24 23:10 Dose: 200 mls/hr Insulin Aspart (Insulin Aspart 300 Units/3 Ml) 0 units SUBCUT TID.WITH.MEALS [facility]; Protocol Stop: 11/24/25 07:59 Insulin Aspart (Insulin Aspart 300 Units/3 Ml) 0 units SUBCUT TID.WM.HS [facility]; Protocol Stop: 11/24/25 07:59 Insulin Glargine (Insulin Glargine 300 Units/3 Ml Insuln.Pen) 28 units SUBCUT QHS [facility] Stop: 11/23/25 21:59 Last Admin: 11/23/24 [...] 40 Mg Tablet.Dr) 40 mg PO DAILY [facility] Stop: 11/24/25 08:59 Last Admin: 11/24/24 09:21 Dose: 40 mg Pregabalin (Pregabalin 150 Mg Capsule) 150 mg PO Q8HR [facility] Stop: 05/22/25 21:59 Last Admin: 11/24/24 06:48 Dose: 150 mg Sodium Chloride (Sodium Chloride 0.9 % 10 Ml Syringe) 0 ml IV-PUSH PRN PRN PRN Reason: Flush Stop: 11/23/25 15:07 Sodium Chloride (Sodium Chloride 0.9 % 10 Ml Syringe) 10 ml IV-PUSH Q8H [facility] Stop: 11/23/25 18:14 Last Admin: 11/24/24 [...] Skin: No rashes , warm to touch SURFACE GRINDER: Awake,Alert, following simple command Musculoskeletal: No swelling or limitation of movement of the large joints Psychiatric: Cooperative, normal mood and affect Results - Nephrology Labs 11/24/24 05:14 11/24/24 05:14 Labs: 11/23/24 11/23/24 11/23/24 16:11 16:51 20:52 BUN 55 H 54 H Creatinine 2.62 H 2.46 H Phosphorus Albumin 3.4 L Urine Color Colorless Urine Appearance Clear Urine pH 6.0 Ur Specific Aurora 1.010 Urine Protein 100 H Urine Glucose (UA) 500 H Urine Ketones Negative Urine Occult Blood Negative Urine Nitrite Negative Ur Leukocyte Esterase 2+ H Urine RBC 1-2 Urine WBC 5-9 H Urine Bacteria None seen 11/24/24 05:14 BUN 52 H Creatinine 2.37 H Phosphorus 3.9 Albumin 2.9 L Urine Color Urine Appearance Urine pH Ur Specific Aurora Urine Protein Urine Glucose (UA) Urine Ketones Urine Occult Blood Urine Nitrite Ur Leukocyte Esterase Urine RBC Urine WBC Urine Bacteria Radiology Impressions Impressions - last 24 hours: Impressions Chest X-Ray 11/23/24 16:16 IMPRESSION: CARDIOMEGALY. NO ACUTE PLEURAL-PARENCHYMAL DISEASE. Impression dictated by: Raf Potter M.D.11/23/2024 4:55 PM Dictation Location: [facility]-29 Abdomen/Pelvis CT 11/23/24 18:09 IMPRESSION: Severe [...] Raf Potter M.D.11/23/2024 6:50 PM Dictation Location: [place] [address] Foot X-Ray 11/23/24 18:45 IMPRESSION: 7 mm radiopaque foreign body noted. No definite periosteal reactionor subcutaneous emphysema. Impression dictated by: Raf Potter M.D.11/24/2024 8:07 AM Dictation Location: [place] [address] Any impression(s) listed above is documentation that [...] She follows with the urology outpatient at [facility]. (5) Neurogenic bladder: Assessment/Problem Details: She has a neurogenic bladder and was seen by the urology at [facility]. She was recommended to have a surgical intervention but opted against this. She is referred to now urogynecologist at [facility] for second opinion. (6) Diabetes: Assessment/Problem [...] Tyler Valencia MD 11/24/24921 Signed By: 11/24/24 Critical access hospital5 [facility]04-05-2025 Evaluation note* Diagnosis Onset Date Resolution Status [...] 2024 6:09pm Diabetes deleted November 23 6:09pm [facility] Work Phone: 1(244) 456-583004-05-2025 [facility]iology [facility] [place] [address] [place] [address] CT Scan Report Signed Patient: Aislinn Wheeler MR#: [id number] : 1960 Acct:[id number] Age/Sex: 64 / F ADM Date: 5 Loc: Room: [address] [place] [address] Type: ADM IN Attending Dr: Diane Smith [...] Raf Potter M.D.11/23/2024 6:50 PM Dictation Location: [place] [address] Transcribed By: [facility] 11/23/241849 Dictated By: Raf Potter MD 11/23/24 183 Signed By: 11/23/241849 [facility] Work Phone: 1(235) 315-122603-31-2025 History of Present illness Narrative* Agusto Olmstead [...] is contraindicated. She does not see a civil engineering assistant.Eye exam is current. SUBJECTIVE: MEDICATIONS: Current Outpatient Medications Medication Instructions amLODIPine (NORVASC) 10 mg, Oral, Daily atorvastatin (LIPITOR) 20 mg, Oral, Nightly cephalexin (KEFLEX) 500 mg, Oral, 2 times daily cetirizine (ZYRTEC) 10 mg, Oral, Daily Continuous Glucose Therapy Assistant (Dexcom G7 Therapy Assistant) device 1 each, Does not apply, Daily [...] (LASIX) 40 mg, 2 times daily HYDROcodone-acetaminophen (Creston) 7.5-325 MG tablet 1 tablet, 3 times [...] Diagnosis Date Amputation of left great toe ([facility]) Cervical cancer ([facility]) 10/11/2023 had Hysterectomy Charcot's joint of foot, left 10/11/2023 Chronic kidney disease, stage III (moderate) ([facility]) ([facility]) 10/11/2023 Fatty liver 10/11/2023 History of hysterectomy [...] of nail of digit of hand Osteoporosis ([facility]) 10/11/2023 Post-menopausal 10/11/2023 Rheumatoid arthritis ([facility]) 10/11/2023 RSD (reflex sympathetic dystrophy) 10/11/2023 Type 2 diabetes mellitus with diabetic neuropathy, unspecified whether detention insulin use ([facility]) 10/11/2023 Visual impairment 10/11/2023 HAD BILATERAL CATARCT [...] hyperglycemia, with long-term current use of insulin ([facility]) Check blood sugars daily, notify if <70 [...] Ambulatory referral to Urogynecology Essential (primary) hypertension ([facility]) Please check blood pressure daily and record [...] neuropathy, with long-term current use of insulin ([facility]) Recommend freq foot checks, proper fitting shoes [...] Urogynecology Chronic kidney disease, stage 4 (severe) ([facility]) Long standing uncontrolled HTN and DM Multiple attempts to get pt to specialists, does not follow through She is established with local Mail Clerk Goal: bp and DM control, although there again her compliance with blood sugar checking is difficult. She has been referred to local area Endo and [facility], but does not go to her appts as scheduled and has been discharged, and does not appear to have a strong support system Relevant Orders Basic metabolic panel CBC and differential Iron level USP (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 (CMS/HCC) Non compliance w medication regimen Difficulty with [...] to all appts Now has pt advocateReyes * Agusto Olmstead NP - 11/18/2024 6:29 AM EDTAssociated Problem(s): Type 2 diabetes mellitus with hyperglycemia, with long-term current use of insulin ([facility]) Check blood sugars daily, notify if <70 [...] Problem(s): Chronic kidney disease, stage 4 (severe) ([facility]) Long standing uncontrolled HTN and DM Multiple attempts to get pt to specialists, does not follow through She is established with local Mail Clerk Goal: bp and DM control, although there again her compliance with blood sugar checking is difficult. She has been referred to local area Endo and [facility], but does not go to her appts as scheduled and has been discharged, and does not appear to have a strong support system * Agusto Olmstead NP - 11/18/2024 6:27 AM EDTAssociated Problem(s): Essential (primary) hypertension ([facility]) Please check blood pressure daily and record DASH diet Limit caffeine Take medication as directed Contact office if chest pain, pressure, dizziness, shortness of breath, swelling legs Recommend slow position changes Current meds: amlodipine and metoprolol * Agusto Olmstead NP - 11/18/2024 6:27 AM EDTAssociated Problem(s): Type 2 diabetes mellitus with diabetic neuropathy, with long-term current use of insulin ([facility]) Recommend freq foot checks, proper fitting shoes And better glucose control * Agusto Olmstead NP - 11/18/2024 6:27 AM EDTAssociated Problem(s): RSD (reflex sympathetic dystrophy) Follows with pain mgmt for this documented in this [facility]03-31-2025 Instructions* Patient Instructions* Agusto Olmstead NP - 11/18/2024 10:30 AM EDT Blood pressure: We are going to change the dose on the amlodipine to 10mg once day. Follow up in 3 week for blood pressure check, continue the metoprolol at current dose I am going to re send an referral to [facility] in [place], for your chest pain I will also send a referral to Dr Baez (uro/marksmanship instructor) documented in this [facility]03-28-2025 Miscellaneous Notes* Telephone Encounter - Barbara Lucero RN - 11/15/2024 7:42 AM EDT Error on Creston prescription. Two different fill dates listed. This is a corrected RX. Previously printed Creston RX signed today voided. documented in this [facility]03-28-2025 Telephone encounter Note* Telephone Encounter - Barbara Lucero RN - 11/15/2024 7:42 AM EDT Error on Creston prescription. Two different fill dates listed. This is a corrected RX. Previously printed [place] RX signed today voided. [facility] Miscellaneous Notes* Telephone Encounter - Lila Che RN - 11/14/2024 11:31 AM EDT Last Office Visit: 09/29/2024 Next Office Visit: 01/08/2025 Last Urine Drug Screen:04/24/2024 Lab Results Component Value Date BENZOSCRN Negative 08/09/2023 OARRS appropriate [facility] [id number] Telephone encounter Note* Telephone Encounter - Lila Che RN - 11/14/2024 11:31 AM EDT Last Office Visit: 09/29/2024 Next Office Visit: 01/08/2025 Last Urine Drug Screen:04/24/2024 Lab Results Component Value Date BENZOSCRN Negative 08/09/2023 OARRS appropriate [facility] Miscellaneous Notes* Telephone Encounter - Asia Barreto RN - 10/24/2024 12:19 PM EST Last Office Visit: 10/09/2024 Next Office Visit: 01/08/2025 Last Urine Drug Screen: Lab Results Component Value Date BENZOSCRN Negative 08/09/2023 OARRS appropriate * Telephone Encounter - Asia Barreto RN - 10/24/2024 12:19 PM EST sera Jimenez fill date is tomorrow, she is requesting a call as soon as Dr Miranda signs her prescriptions. She is aware we will be here half day tomorrow. documented in this encounterHolzer [facility] System03-[facility]25 Telephone encounter Note* Telephone Encounter - Asia Barreto RN - 10/24/2024 12:19 PM EST Last Office Visit: 10/09/2024 Next Office Visit: 01/08/2025 Last Urine Drug Screen: Lab Results Component Value Date BENZOSCRN Negative 08/09/2023 OARRS appropriate [facility]03-06-20[facility] Telephone encounter Note* Telephone Encounter - Asia Barreto RN - 10/24/2024 12:19 PM EST Barbara, pt fill date is tomorrow, she is requesting a call as soon as Dr Miranda signs her prescriptions. She is aware we will be here half day tomorrow. [facility]02-20-2025 Miscellaneous Notes* Telephone Encounter - Yesenia Burnett RN - 10/10/2024 12:26 PM EST Last OV: 10/09/2024 Next OV: 01/08/2025 OARRS appropriate: yes Last UDS: 04/24/2024 [facility] documented in this encounterHolzer [facility] System02-20-2025 Telephone encounter Note* Telephone Encounter - Yesenia Burnett RN - 10/10/2024 12:26 PM EST Last OV: 10/09/2024 Next OV: 01/08/2025 OARRS appropriate: yes Last UDS: 04/24/2024 Pharmacy: [facility] History of Present illness Narrative* Sweta Ch PA-C - 10/09/2024 11:15 AM EST [facility] [address] [place] [address] Patient: Aislinn Wheeler Sex: female : 1960 Age: 64 y.o. PCP: AGUSTO OLMSTEAD, ASHVIN-E BUSINESS CONSULTANT 10/09/2024 Aislinn Wheeler is here for a(n) follow up for bilateral arm pain due to her [employer] work injury. She reports she is [...] on cart, cold/heat). Treatments tried: Tizanidine, Lyrica,Gabapentin, Creston, Elevation, NSAIDs x 2 (Ibuprofen, Aleve), Flexeril, BioFreeze, Immobilization w/min relief, Celebrex & compound cream w/no relief, Rt Stellate Ganglion NB w/mod relief. The treatment provided moderate relief. The effect of pain on patient's ADLS: Moderate Impairment. Past Medical History: Diagnosis Date Arthritis RHEUMATOID Arthritis OSTEOARTHRITIS Asthma At risk for UTI related to indwelling catheter Broken toes 08/2022 Bronchitis Cancer ([facility]) UTERINE Chronic kidney disease 2015 stage 3 per pt 04/05/23 COVID-19 virus infection 09/28/2021 Diabetes mellitus ([facility]) Fibromyalgia GERD (gastroesophageal reflux disease) History of degenerative disc disease Hypertension Joint pain Lupus Mitral valve prolapse Osteoarthritis Pneumonia released from hospital on 11/12/21 RSD (reflex sympathetic dystrophy) Stroke ([facility]) Past Surgical History: Procedure Laterality Date AMPUTATION OF REPLICATED TOES Left 06/2022 ANKLE SURGERY CATARACT EXTRACTION, BILATERAL Bilateral 03/22 and 04/13 CHOLECYSTECTOMY HYSTERECTOMY INJECTION BLOCK NERVE STELLATE GANGLION NECK Right 03/15/2024 Performed by Zackery Miranda MD at [facility] BLOCK NERVE STELLATE GANGLION NECK Right 10/13/2023 Performed by Zackery Miranda MD at [facility] BLOCK NERVE STELLATE GANGLION NECK Right 12/23/2022 Performed by Zackery Miranda MD at [facility] BLOCK NERVE STELLATE GANGLION NECK Right 05/06/2022 Performed by Zackery Miranda MD at [facility] BLOCK NERVE STELLATE GANGLION NECK Right 10/15/2021 Performed by Zackery Miranda MD at [facility] BLOCK STELLATE GANGLION N/A 02/17/2017 Performed by Zackery Miranda MD at [facility] BLOCK STELLATE GANGLION NECK Right 06/18/2018 Performed by Zackery Miranda MD at [facility] BLOCK STELLATE GANGLION NECK N/A 05/15/2017 Performed by Zackery Miranda MD at [facility] BLOCK STELLATE GANGLION NECK Right Right 05/22/2020 Performed by Zackery Miranda MD at [facility] BLOCK STELLATE GANGLION NECK Right N/A 10/04/2019 Performed by Zackery Miranda MD at [facility] BLOCK STELLATE GANGLION NECK Right Right 05/10/2019 Performed by Zackery Miranda MD at [facility] BLOCK STELLATE GANGLION NECK Right Right 12/31/2018 Performed by Zackery Miranda MD at [facility] BLOCK STELLATE GANGLION NECK Right Right 10/09/2017 Performed by Zackery Miranda MD at [facility] KNEE SURGERY REMOVAL STIMULATOR SPINAL CORD N/A 12/29/2017 Performed by Zackery Miranda MD at [facility] SHOULDER SURGERY Allergies Allergen Reactions Latex Added [...] Resource Strain: Medium Risk (10/11/2023) Received from [facility] Overall Financial Resource Strain (CARDIA) Difficulty of Paying Living Expenses: Somewhat hard Food Insecurity: No Food Insecurity (10/09/2024) Hunger Screening Food Insecurity - Worry: Never True Food Insecurity - Inability: Never True Transportation Needs: No Transportation Needs (10/11/2023) Received from [facility] PRAPARE - Transportation Lack of Transportation (Medical): No Lack of Transportation (Non-Medical): No Physical Activity: Inactive (10/11/2023) Received from [facility] Exercise Vital Sign Days of Exercise per Week: 0 days Minutes of Exercise per Session: 0 min Stress: Stress Concern Present (10/11/2023) Received from [facility] [place] [employer] Occup[employer] - Occupational Stress Questionnaire Feeling of Stress : Very much Social Connections: Socially Isolated (10/11/2023) Received from [facility] Social Connection and Isolation Panel [NHANES] Frequency of Communication with Friends and Family: More than three times a week Frequency of Social Gatherings with Friends and Family: More than three times a week Attends Yarsani Services: Never Active Member of Clubs or Organizations: No Attends Club or Organization Meetings: Never Marital Status: Interpersonal Safety: Unknown (10/12/2023) Received from [facility] Safety & Environment Fear of Current or Ex-Partner: Not on file Emotionally Abused: Not on file Physically Abused: Not on file Sexually Abused: Not on file Physically or Sexually Abused: Not on file Housing Instability: Low Risk (10/11/2023) [facility] Housing Stability Vital Sign Unable to Pay [...] type 1 of right upper extremity Continue Creston 5/325 mg TID PRN and Lyrica 150 [...] medication that requires intensive monitoring for toxicity Creston and Lyrica. OARRS and most recent UDS were reviewed, discussed and appropriate for medications prescribed. Creston pill count completed at today's office visit. [...] hypertension, Kidney failure OARRS: Reviewed. Scribe Statement: IAgusto CNA, scribed for and in the presence of SWETA CH PA-C who performed the above service. Provider Statement: I, SWETA CH PA-C, personally performed the services described in the documentation, as scribed by Agusto Gray CNA in my presence, and it is both accurate and complete. Agusto Gray CNA 10/09/24 1241 Sweta Ch PA-C 10/09/24 1306 documented in this encounterHolzer Health System01-24-2025 Miscellaneous Notes* Telephone Encounter - Barbara Lucero RN - 09/13/2024 11:56 AM EST Last OV: 07/03/24 Next OV: 10/09/24 OARRS appropriate: Yes Last UDS: 04/24/24 [facility] Patient requested Lyrica refill as well. OARRS states last time filled was 07/26/24. Spoke with pharmacy who confirms that was the last time it was filled. TC to patient to see if she has been taking,she confirms she has, she has additional pills in another bottle. Advised she needs to call the pharmacy for a refill, PVU. documented in this encounterHolzer Health System01-24-2025 Telephone encounter Note* Telephone Encounter - Barbara Lucero RN - 09/13/2024 11:56 AM EST Last OV: 07/03/24 Next OV: 10/09/24 OARRS appropriate: Yes Last UDS: 04/24/24 [facility]acy: [facility] Patient requested Lyrica refill as well. OARRS states last time filled was 07/26/24. Spoke with pharmacy who confirms that was the last time it was filled. TC to patient to see if she has been taking,she confirms she has, she has additional pills in another bottle. Advised she needs to call the pharmacy for a refill, PVU. [facility]01-22-2025 History of Present illness Narrative* PADMAJA SULILVAN - 09/11/2024 11:00 AM EST Pt is feeling weak, eyes are blurry and cloudy (could just be her eyes) * Agusto Olmstead NP - 09/11/2024 11:00 AM EST Images from the original note were not included. Aislinn Wheeler is a 64 y.o. female presents with chief complaint of Hypertension HPI: Recent hospitalization at [facility], d/t CKD, and HTN, sent home on [...] t aken. She does not see a civil engineering assistant.Eye exam is not current. SUBJECTIVE: MEDICATIONS: Current [...] test strip 4 times daily use HYDROcodone-acetaminophen (Creston) 7.5-325 MG tablet 1 tablet, 3 times [...] Diagnosis Date Amputation of left great toe ([facility]) Cervical cancer ([facility]) 10/11/2023 had Hysterectomy Charcot's joint of foot, left 10/11/2023 Chronic kidney disease, stage III (moderate) ([facility]) ([facility]) 10/11/2023 Fatty liver 10/11/2023 History of hysterectomy [...] of nail of digit of hand Osteoporosis ([facility]) 10/11/2023 Post-menopausal 10/11/2023 Rheumatoid arthritis ([facility]) 10/11/2023 RSD (reflex sympathetic dystrophy) 10/11/2023 Type 2 diabetes mellitus with diabetic neuropathy, unspecified whether detention insulin use ([facility]) 10/11/2023 Visual impairment 10/11/2023 HAD BILATERAL CATARCT [...] hyperglycemia, with long-term current use of insulin ([facility]) Check blood sugars daily, notify if <70 [...] her bolus insulin Relevant Medications Continuous Glucose Therapy Assistant (Dexcom G7 Therapy Assistant) device Continuous Glucose Sensor (Dexcom G7 Sensor) misc insulin glargine (Lantus) 100 UNIT/ML injection Neurogenic bladder Essential (primary) hypertension ([facility]) Please check blood pressure daily and record [...] neuropathy, with long-term current use of insulin ([facility]) Reports increase in neuropathy symptoms, is on lyrica at 150mg TID, also takes percocet for RSD Relevant Medications Continuous Glucose Therapy Assistant (Dexcom G7 Therapy Assistant) device Continuous Glucose Sensor (Dexcom G7 Sensor) misc insulin glargine (Lantus) 100 UNIT/ML injection Malignant neoplasm of cervix uteri, unspecified ([facility]) - Primary Had hyst Rheumatoid arthritis, unspecified ([facility]) Does not follow with Rheumatology Chronic kidney disease, stage 4 (severe) ([facility]) Long standing uncontrolled HTN and DM Multiple attempts to get pt to specialists, does not follow through She is established with local Mail Clerk, it is of note that in the last week she was admitted [facility] for elevated kidney function and potassium, med adjustments as well. Urged pt to please continue to follow with Nephrology Goal: bp and DM control, although there again her compliance with blood sugar checking is difficult. 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 ([facility]) Relevant Medications Continuous Glucose Therapy Assistant (Dexcom G7 Therapy Assistant) device Continuous Glucose Sensor (Dexcom G7 Sensor) misc * Agusto Olmstead NP - 09/11/2024 7:10 AM ESTAssociated Problem(s): Rheumatoid arthritis, unspecified ([facility]) Does not follow with Rheumatology * Agusto Olmstead NP - 09/11/2024 7:10 AM ESTAssociated Problem(s): Type 2 diabetes mellitus with hyperglycemia, with long-term current use of insulin ([facility]) Check blood sugars daily, notify if <70 [...] follow through She is established with local Mail Clerk, it is of note that in the last week she was admitted [facility] for elevated kidney function and potassium, med adjustments as well. Urged pt to please continue to follow with Nephrology Goal: bp and DM control, although there again her compliance with blood sugar checking is difficult. She has been referred to local area Endo and [facility], but does not go to her appts as scheduled and has been discharged, and does not appear to have a strong support system * Agusto Olmstead NP - 09/11/2024 7:09 AM ESTAssociated Problem(s): Essential (primary) hypertension (CMS/HCC) Please check [...] neuropathy, with long-term current use of insulin ([facility]) Reports increase in neuropathy symptoms, is on lyrica at 150mg TID, also takes percocet for RSD documented in this [facility]01-22-2025 Instructions* Patient Instructions* Agusto Olmstead NP - 09/11/2024 11:00 AM EST Start your furosemide 40mg prescription at the pharmacy this should help your blood pressure and high potassium We have referral for Gynecology/Urolgist: I will give you a number for this Dr Kristen Domínguez: [phone] this is for your bladder , she is out of [facility], please call this office to schedule Also a referral to [facility] Screen Operator you need to call and set you up they tried to call you noresponse: [phone] Diabetes: I ordered continuous glucose monitor: Dexcom 7, 2 parts to this the sensor (change it every 10 days) and reader (insurance pays for this once every 5 years) Area on you lung we need to look at with PET scan slow growing want to make sure no cancer, probably will be done at [facility] I need to do some checking documented in this [facility]01-20-2025 Miscellaneous Notes* Telephone Encounter - Heidy Belchre CMA - 09/09/2024 10:58 AM EST GRANULATING MACHINE OPERATOR REFERRAL AGUSTO CARLOS - CHEST PAIN, UNSPECIFIED TYPE - PHONED PT AND LM ON VM TO CALL OFFICE TO SCHED APPT - 08/28/24 JSL LMOM TO SCHED GRANULATING MACHINE OPERATOR APPT [facility] 09-02-24 LMOM TO CALL AND SET UP GRANULATING MACHINE OPERATOR APPT [facility]; LETTER MAILED TO PT 09/09/24 JSL documented in this encounterHolzer [facility] System01-20-2025 Telephone encounter Note* Telephone Encounter - Heidy Belcher CMA - 09/09/2024 10:58 AM EST GRANULATING MACHINE OPERATOR REFERRAL AGUSTO RICMUNDO - CHEST PAIN, UNSPECIFIED TYPE - PHONED PT AND LM ON VM TO CALL OFFICE TO SCHED APPT - 08/28/24 JSL LMOM TO SCHED GRANULATING MACHINE OPERATOR APPT [facility] 09-02-24 LMOM TO CALL AND SET UP GRANULATING MACHINE OPERATOR APPT [facility]; LETTER MAILED TO PT 09/09/24 JSBroderick [facility]01[facility]19[facility]2025 [place] [address] Nephrology Progress Note Signed Patient: Aislinn Wheeler MR#: [id number] : 1960 Acct:[id number] Age/Sex: 64 / F Adm Date: 5 Loc: Room: [address] [place] [address] Type: ADM IN Attending Dr: Gilmer Tai [...] complex cystic mass on the kidney at [facility] in 2023.. Patient is known to have neurogenic bladder she uses self cath at home for quitesome time however recently she ran out of supplies. Patient was seen by Dr. Sprague in the office on 115 and had creatinine was found to be 2.7 mg/dL much higher than previous baseline, potassium 5.8 and blood pressure 210/110. Initi ally she went to the [facility] ER on 09/04 and she had a [...] Patient was called again to come to [facility] as her potassium continues to be elevated [...] Bitart/Acetaminophen (Hydrocodone/Acetaminophen 7.5-325mg Tablet) 1tab PO Q8HR [facility] Last Admin: 09/08/24 06:08 Dose: 1 tab Atorvastatin Calcium (Atorvastatin 20 Mg Tablet) 20 mg PO DAILY [facility] Stop: 09/07/25 08:59 Last Admin: 09/08/24 08:45 Dose: 20 mg Bethanechol Chloride (Bethanechol 10 Mg Tablet) 10 mg PO TID [facility] Stop: 09/07/25 13:59 Last Admin: 09/08/24 08:44 Dose: 10 mg Dextrose (Dextrose 50% In Water 25 Gm/50 Ml Syringe) 0 gm IV-PUSH PRN PRN PRN Reason: Hypoglycemia Stop: 09/05/25 22:01 Enoxaparin Sodium (Enoxaparin 30 Mg/0.3 Ml Syringe) 30 mg SUBCUT DAILY@1000 [facility] Stop: 09/06/25 09:59 Last Admin: 09/07/24 09:07 Dose: 30 mg Furosemide (Furosemide 40 Mg Tablet) 40 mg PO BID@0800,1600 [facility] Stop: 09/06/25 15:59 Last Admin: 09/08/24 [...] 300 Units/3 Ml) 0 units SUBCUT TID.WM.HS [facility]; Protocol Stop: 09/06/25 07:59 Last Admin: 09/08/24 08:45 Dose: Not Given Insulin Glargine (Insulin Glargine 300 Units/3 Ml Insuln.Pen) 28 units SUBCUT QHS [facility] Stop: 09/06/25 21:59 Last Admin: 09/07/24 21:16 Dose: 28 units Metoprolol Succinate (Metoprolol Succinate 50 Mg Tab.Er.24h) 50 mg PO DAILY [facility] Stop: 09/06/25 08:59 Last Admin: 09/08/24 08:45 Dose: 50 mg Oxycodone/Acetaminophen (Oxycodone/Acetaminophen 5-325 Mg Tablet) 1 tab PO Q4H PRN PRN Reason: Pain Scale 4 - 7 Last Admin: 09/06/24 10:18 Dose: 1 tab Pregabalin (Pregabalin 75 Mg Capsule) 75 mg PO BID [facility] Stop: 03/05/25 20:59 Last Admin: 09/08/24 08:52 Dose: 75 mg Sodium Bicarbonate (Sodium Bicarbonate 650 Mg Tablet) 650 mg PO TID [facility] Stop: 09/06/25 19:59 Last Admin: 09/08/24 [...] of the [facility] Renal ultrasound on 09/06/2024 showed [...] stated that she follow-up with urology at [facility] as well. * Continue sodium bicarb 650 [...] MD 09/08/24 1138 Signed By: 09/08/24 1142 [facility]01-18-2025 Progress note Author Abhishek Castañeda [facility] Note Date/Time September 07, 2024 3 :39pm [facility] [address] [employer], [place] [id number] Urology Progress Note Signed Patient: Aislinn Wheeler MR#: [id number] : 1960 Acct:[id number] Age/Sex: 64 / F Adm Date: 5 Loc: Room: [address] [place] [address] Type: ADM IN Attending Dr: Gilmer Tai [...] % (Auto) 65.6, Lymph % (Auto) 24.8, Upson % (Auto) 6.2, Eos % (Auto) 2.9, Baso % (Auto) 0.5, Nucleat RBC Rel Count 0.1, Neut # (Auto) 5.4, Lymph # (Auto) 2.0, Upson # (Auto) 0.5, Eos # (Auto) 0.2, [...] % (Auto) 74.5, Lymph % (Auto) 19.0, Upson % (Auto) 4.4, Eos % (Auto) 1.3, Baso % (Auto) 0.8, Nucleat RBC Rel Count 0.0, Neut # (Auto) 10.0 H, Lymph # (Auto) 2.5, Upson # (Auto) 0.6, Eos # (Auto) 0.2, [...] Cloudy A, Urine pH 6.0, Ur Specific Aurora 1.007, Urine Protein 70 H, Urine Glucose [...] % (Auto) 65.6, Lymph % (Auto) 25.0, Upson % (Auto) 5.8, Eos % (Auto) 2.2, Baso % (Auto) 1.4, Nucleat RBC Rel Count 0.1, Neut # (Auto) 5.5, Lymph # (Auto) 2.1, Upson # (Auto) 0.5, Eos # (Auto) 0.2, [...] signed by Abhishek Castañeda MD> 09/07/24 1539 [facility] Work Phone: 1(122) 298-605601-18-2025 Progress note Author Gilmer Tai [facility] Note Date/Time September 07, 2024 1 :45pm [facility] [address] [place] [address] Hospitalist Progress Note Signed Patient: Aislinn Wheeler MR#: [id number] : 1960 Acct:[id number] Age/Sex: 64 / F Adm Date: Loc: Room: [address] [place] [address] Type: ADM IN Attending Dr: Gilmer Tai [...] of care and confirmed it with the resident/student/GRANULATING MACHINE OPERATOR. Ms. Aislinn Wheeler is a 64 year old female with a PMHx of hypertension, chronic kidney disease, diabetes, restless leg syndrome, rheumatoid arthritis, lupus andfibromyalgia admitted for abnormal lab values after a routine lab check. She wasrecently admitted to the [facility] where she was treated for a urinary tract infection and hypokalemia. She had a valerio catheter placed at [facility] that was subsequently removed. After discharge from [facility] on 09/05/24, her heavy equipment plumbing supervisor recommended she come to this hospital. Today [...] - Hospitalist Assessment/Plan (1) Urinary retention: (2) ANATOILY (acute kidney injury): (3) Hyperkalemia: (4) History [...] <Electronically signed by Gilmer Tai MD> 09/07/24 1345 [facility] Work Phone: 1(260) 332-889801-18-2025 Progress note Author Gilmer Tai [facility] Note Date/Time September 07, 2024 1 :44pm [facility] [address] [place] [address] Hospitalist Progress Note Signed Patient: Aislinn Wheeler MR#: [id number] : 1960 Acct:[id number] Age/Sex: 64 / F Adm Date: 5 Loc: Room: [address] [place] [address] Type: ADM IN Attending Dr: Gilmer Tai [...] of care and confirmed it with the resident/student/GRANULATING MACHINE OPERATOR. Ms. Aislinn Wheeler is a 64 year old female with a PMHx of hypertension, Chronic kidney disease, diabetes, restless leg syndrome, rheumatoid arthritis, lupus andfibromyalgia admitted for abnormal lab values after a routine lab check. She wasrecently admitted to the [facility] where she was treated for a urinary tract infection and hypokalemia. She had a valerio catheter placed at [facility] that was subsequently removed. After discharge from [facility] on 09/05/24, her heavy equipment plumbing supervisor recommended she come to this hospital. Today [...] 09/06/24 14:00 Hydrocodone/Acetaminophen 7.5-325mg Tablet PO Q8HR [facility] Atorvastatin Calcium 20 mg 09/07/24 09:00 Atorvastatin 20 Mg Tablet PO 09/07/25 08:59 DAILY [facility] Ceftriaxone Sodium 1 gm 09/06/24 00:30 09/06/24 01:26 Ceftriaxone 1 Gm/10 Ml Syringe IV-PUSH 1 gm Q24H UZIEL Administration Dextrose 0 gm 09/05/24 22:02 Dextrose 50% In Water 25 Gm/50 Ml Syringe IV-PUSH 09/05/25 22:01 PRN PRN Hypoglycemia Enoxaparin Sodium 30 mg 09/06/24 10:00 09/06/24 10:18 Enoxaparin 30 Mg/0.3 Ml Syringe SUBCUT 09/06/25 09:59 30 mg DAILY@1000 [facility] Administration Furosemide 40 mg 09/06/24 16:00 Furosemide 40 Mg Tablet PO 09/06/25 15:59 BID@0800,1600 [facility] Glucose 0 gm 09/05/24 22:02 Dextrose 40% Gel 15 Gm Tube PO 09/05/25 22:01 PRN PRN Hypoglycemia Hyoscyamine 0.125 mg 09/06/24 02:46 09/06/24 08:56 Hyoscyamine Sulfate 0.125 Mg Tab.Rapdis SUBLINGUAL 09/06/25 02:45 0.125 mg Q4H PRN Administration Bladder Spasms Sodium Bicarbonate 150 meq/ 1,150 mls @ 100 mls/hr 09/06/24 10:30 Dextrose IV 09/06/24 21:59 .[id number] [facility] Magnesium Sulfate 4 gm in 100 mls @ 25 mls/hr 09/06/24 09:52 09/06/24 10:18 Magnesium Sulf 4 Gm-*Swfi* IV 09/06/24 13:51 25 mls/hr ONCE ONE Administration Insulin Aspart 0 units 09/06/24 08:00 09/06/24 07:53 Insulin Aspart 300 Units/3 Ml SUBCUT 09/06/25 07:59 1 units TID.WM.[facility] Administration Protocol Insulin Glargine 28 units 09/06/24 22:00 Insulin Glargine 300 Units/3 Ml Insuln.Pen SUBCUT 09/06/25 21:59 QHS [facility] Metoprolol Succinate 50 mg 09/06/24 09:00 [...] patient Documented By: Gilmer Tai MD 09/06/24 1055 Signed By: <Electronically signed by Gilmer Tai MD> 09/07/24 1346 [facility] Work Phone: 1(457) 144-812001-18-2025 [place] [id number] Urology Progress Note Signed Patient: Aislinn Wheeler MR#: [id number] : 1960 Acct:[id number] Age/Sex: 64 / F Adm Date: 5 Loc: 3T Room: [address] [place] [address] Type: ADM IN Attending Dr: Gilmer Tai [...] % (Auto) 65.6, Lymph % (Auto) 24.8, Upson % (Auto) 6.2, Eos % (Auto) 2.9, Baso % (Auto) 0.5, Nucleat RBC Rel Count 0.1, Neut # (Auto) 5.4, Lymph # (Auto) 2.0, Upson # (Auto) 0.5, Eos # (Auto) 0.2, [...] % (Auto) 74.5, Lymph % (Auto) 19.0, Upson % (Auto) 4.4, Eos % (Auto) 1.3, Baso % (Auto) 0.8, Nucleat RBC Rel Count 0.0, Neut # (Auto) 10.0 H, Lymph # (Auto) 2.5, Upson # (Auto) 0.6, Eos # (Auto) 0.2, [...] Cloudy A, Urine pH 6.0, Ur Specific Aurora 1.007, Urine Protein 70 H, Urine Glucose [...] % (Auto) 65.6, Lymph % (Auto) 25.0, Upson % (Auto) 5.8, Eos % (Auto) 2.2, Baso % (Auto) 1.4, Nucleat RBC Rel Count 0.1, Neut # (Auto)5.5, Lymph # (Auto) 2.1, Upson # (Auto) 0.5, Eos # (Auto) 0.2, [...] Castañeda MD 09/07/241534 Signed By: 09/07/24 1539 [facility]01-18-2025 [place] [id number] Hospitalist Progress Note Signed Patient: Aislinn Wheeler MR#: [id number] : 1960 Acct:[id number] Age/Sex: 64 / F Adm Date: 5 Loc: Room: [address] [place] [address] Type: ADM IN Attending Dr: Gilmer Tai [...] care and confirmed it with the re sident/student/GRANULATING MACHINE OPERATOR. Ms. Aislinn Wheeler is a 64 year old female with a PMHx of hypertension, chronic kidney disease, diabetes, restless leg syndrome, rheumatoid arthritis, lupus andfibromyalgia admitted for abnormal lab values after a routine lab check. She wasrecently admitted to the [facility] where she was treated for a urinary tract infection and hypokalemia. She had a valerio catheter placed at [facility] that was subsequently removed. After discharge from [facility] on 09/05/24, her heavy equipment plumbing supervisor recommended shecome to this hospital. Today Ms. [...] Tablet PO 09/06/25 15:59 40 mg BID@0800,1600 [facility] Administration Glucose 0 gm 09/05/24 22:02 Dextrose 40% Gel 15 Gm Tube PO 09/05/25 22:01 PRN PRN Hypoglycemia Hyoscyamine 0.125 mg 09/06/24 02:46 09/06/24 20:42 Hyoscyamine Sulfate 0.125 Mg Tab.Rapdis SUBLINGUAL 09/06/25 02:45 0.125 mg Q4H PRN Administration Bladder Spasms Insulin Aspart 0 units 09/06/24 08:00 09/07/24 11:27 Insulin Aspart 300 Units/3 Ml SUBCUT 09/06/25 07:59 3 units TID.WM.HS [facility] Administration Protocol Insulin Glargine 28 units [...] MD 09/07/24 1142 Signed By: 09/07/24 1345 [facility]01-18-2025 [place] [id number] Hospitalist Progress Note Signed Patient: Aislinn Wheeler MR#: [id number] : 1960 Acct:[id number] Age/Sex: 64 / F Adm Date: Loc: Room: [address] [place] [address] Type: ADM IN Attending Dr: Gilmer Tai [...] care and confirmed it with the re sident/student/GRANULATING MACHINE OPERATOR. Ms. Aislinn Wheeler is a 64 year old female with a PMHx of hypertension, Chronic kidney disease, diabetes, restless leg syndrome, rheumatoid arthritis, lupus andfibromyalgia admitted for abnormal lab values after a routine lab check. She wasrecently admitted to the [facility] where she was treated for a urinary tract infection and hypokalemia. She had a valerio catheter placed at [facility] that was subsequently removed. After discharge from [facility] on 09/05/24, her heavy equipment plumbing supervisor recommended shecome to this hospital. Today Ms. [...] Syringe SUBCUT 09/06/25 09:59 30 mg DAILY@1000 [facility] Administration Furosemide 40 mg 09/06/24 16:00 Furosemide 40 Mg Tablet PO 09/06/25 15:59 BID@0800,1600 [facility] Glucose 0 gm 09/05/24 22:02 Dextrose 40% Gel 15 Gm Tube PO 09/05/25 22:01 PRN PRN Hypoglycemia Hyoscyamine 0.125 mg 09/06/24 02:46 09/06/24 08:56 Hyoscyamine Sulfate 0.125 Mg Tab.Rapdis SUBLINGUAL 09/06/25 02:45 0.125 mg Q4H PRN Administration Bladder Spasms Sodium Bicarbonate 150 meq/ 1,150 mls @ 100 mls/hr 09/06/24 10:30 Dextrose IV 09/06/24 21:59 .[id number] [facility] Magnesium Sulfate 4 gm in 100 mls @ 25 mls/hr 09/06/24 09:52 09/06/24 10:18 Magnesium Sulf 4 Gm-*Swfi* IV 09/06/24 13:51 25 mls/hr ONCE ONE Administration Insulin Aspart 0 units 09/06/24 08:00 09/06/24 07:53 Insulin Aspart 300 Units/3 Ml SUBCUT 09/06/25 07:59 1 units TID.WM.HS [facility] Administration Protocol Insulin Glargine 28 units 09/06/24 22:00 Insulin Glargine 300 Units/3 Ml Insuln.Pen SUBCUT 09/06/25 21:59 QHS [facility] Metoprolol Succinate 50 mg 09/06/24 09:00 09/06/24 08:56 Metoprolol Succinate 50 Mg Tab.Er.24h PO 09/06/25 08:59 50 mg DAILY [facility] Administration Non-Formulary Medication 1 sliding scale dose 09/06/24 11:30 Insulin Lispro SUBCUT 09/06/25 11:29 AC [facility] Oxycodone/Acetaminophen 1 tab 09/05/24 21:58 09/06/24 [...] MD 09/06/24 1053 Signed By: 09/07/24 1344 [facility]01-18-2025 Progress note [facility] Date/Time September 07, 2024 1 1:07am [facility] [address] [place] [address] Nephrology Progress Note Signed Patient: Aislinn Wheeler MR#: [id number] : 1960 Acct:[id number] Age/Sex: 64 / F Adm Date: 5 Loc: Room: [address] [place] [address] Type: ADM IN Attending Dr: Gilmer Tai [...] complex cystic mass on the kidney at [facility] in 2023.. Patient is known to have neurogenic bladder she uses self cath at home for quitesome time however recently she ran out of supplies. Patient was seen by Dr. Sprague in the office on 115 and had creatinine was found to be 2.7 mg/dL much higher than previous baseline, potassium 5.8 and blood pressure 210/110. Initially she went to the [facility] ER on 09/04 and she had a [...] Patient was called again to come to [facility] as her potassium continues to be elevated [...] the CT scan that was done at [facility] showed bilateral hydronephrosis and distended urinary bladder. [...] Bitart/Acetaminophen (Hydrocodone/Acetaminophen 7.5-325mg Tablet) 1tab PO Q8HR [facility] Last Admin: 09/07/24 05:03 Dose: 1 tab Atorvastatin Calcium (Atorvastatin 20 Mg Tablet) 20 mg PO DAILY [facility] Stop: 09/07/25 08:59 Last Admin: 09/07/24 08:11 Dose: 20 mg Bethanechol Chloride (Bethanechol 10 Mg Tablet) 10 mg PO TID [facility] Stop: 09/07/25 13:59 Ceftriaxone Sodium (Ceftriaxone 1 Gm/10 Ml Syringe) 1 gm IV-PUSH Q24H [facility] Last Admin: 09/06/24 23:46 Dose: 1 gm Dextrose (Dextrose 50% In Water 25 Gm/50 Ml Syringe) 0 gm IV-PUSH PRN PRN PRN Reason: Hypoglycemia Stop: 09/05/25 22:01 Enoxaparin Sodium (Enoxaparin 30 Mg/0.3 Ml Syringe) 30 mg SUBCUT DAILY@1000 [facility] Stop: 09/06/25 09:59 Last Admin: 09/07/24 09:07 Dose: 30 mg Furosemide (Furosemide 40 Mg Tablet) 40 mg PO BID@0800,1600 [facility] Stop: 09/06/25 15:59 Last Admin: 09/07/24 [...] Aspart 300 Units/3 Ml) 0 units SUBCUT TID..[facility]; Protocol Stop: 09/06/25 07:59 Last Admin: 09/07/24 08:12 Dose: 2 units Insulin Glargine (Insulin Glargine 300 Units/3 Ml Insuln.Pen) 28 units SUBCUT QHS [facility] Stop: 09/06/25 21:59 Last Admin: 09/06/24 21:52 Dose: 28 units Metoprolol Succinate (Metoprolol Succinate 50 Mg Tab.Er.24h) 50 mg PO DAILY [facility] Stop: 09/06/25 08:59 Last Admin: 09/07/24 08:11 Dose: 50 mg Oxycodone/Acetaminophen (Oxycodone/Acetaminophen 5-325 Mg Tablet) 1 tab PO Q4H PRN PRN Reason: Pain Scale 4 - 7 Last Admin: 09/06/24 10:18 Dose: 1 tab Pregabalin (Pregabalin 75 Mg Capsule) 75 mg PO BID [facility] Stop: 03/05/25 20:59 Last Admin: 09/07/24 08:11 Dose: 75 mg Sodium Bicarbonate (Sodium Bicarbonate 650 Mg Tablet) 650 mg PO TID [facility] Stop: 09/06/25 19:59 Last Admin: 09/07/24 [...] Jori Ruiz M.D.09/06/2024 9:48 PM Dictation Location: [place] [address] Any impression(s) listed above is documentation that [...] [facility]. Renal ultrasound on 09/06/2024 showed [...] stated that she follow-up with urology at [facility] as well. * Continue sodium bicarb 650 [...] stay. Documented By: Akin Dougherty MD 09/07/24 1052 Signed By: <Electronically signed by MD Akin Dougherty> 09/07/24 1106 [facility] Work Phone: 1(635) 807-885301-18-2025 [place] [address] Nephrology Progress Note Signed Patient: Aislinn Wheeler MR#: [id number] : 1960 Acct:[id number] Age/Sex: 64 / F Adm Date: 5 Loc: Room: [address] [place] [address] Type: ADM IN Attending Dr: Gilmer Tai [...] complex cystic mass on the kidney at [facility] in 2023.. Patient is known to have neurogenic bladder she uses self cath at home for quitesome time however recently she ran out of supplies. Patient was seen by Dr. Sprague in the office on 115 and had creatinine was found to be 2.7 mg/dL much higher than previous baseline, potassium 5.8 and blood pressure 210/110. Initi ally she went to the [facility] ER on 09/04 and she had a [...] Patient was called again to come to [facility] as her potassium continues to be elevated [...] the CT scan that was done at [facility] showed bilateral hydronephrosis and distended urinary bladder. [...] Bitart/Acetaminophen (Hydrocodone/Acetaminophen 7.5-325mg Tablet) 1tab PO Q8HR [facility] Last Admin: 09/07/24 05:03 Dose: 1 tab Atorvastatin Calcium (Atorvastatin 20 Mg Tablet) 20 mg PO DAILY [facility] Stop: 09/07/25 08:59 Last Admin: 09/07/24 08:11 Dose: 20 mg Bethanechol Chloride (Bethanechol 10 Mg Tablet) 10 mg PO TID [facility] Stop: 09/07/25 13:59 Ceftriaxone Sodium (Ceftriaxone 1 Gm/10 Ml Syringe) 1 gm IV-PUSH Q24H [facility] Last Admin: 09/06/24 23:46 Dose: 1 gm Dextrose (Dextrose 50% In Water 25 Gm/50 Ml Syringe) 0 gm IV-PUSH PRN PRN PRN Reason: Hypoglycemia Stop: 09/05/25 22:01 Enoxaparin Sodium (Enoxaparin 30 Mg/0.3 Ml Syringe) 30 mg SUBCUT DAILY@1000 [facility] Stop: 09/06/25 09:59 Last Admin: 09/07/24 09:07 Dose: 30 mg Furosemide (Furosemide 40 Mg Tablet) 40 mg PO BID@0800,1600 [facility] Stop: 09/06/25 15:59 Last Admin: 09/07/24 [...] 300 Units/3 Ml) 0 units SUBCUT TID.WM.HS [facility]; Protocol Stop: 09/06/25 07:59 Last Admin: 09/07/24 08:12 Dose: 2 units Insulin Glargine (Insulin Glargine 300 Units/3 Ml Insuln.Pen) 28 units SUBCUT QHS [facility] Stop: 09/06/25 21:59 Last Admin: 09/06/24 21:52 Dose: 28 units Metoprolol Succinate (Metoprolol Succinate 50 Mg Tab.Er.24h) 50 mg PO DAILY [facility] Stop: 09/06/25 08:59 Last Admin: 09/07/24 08:11 Dose: 50 mg Oxycodone/Acetaminophen (Oxycodone/Acetaminophen 5-325 Mg Tablet) 1 tab PO Q4H PRN PRN Reason: Pain Scale 4 - 7 Last Admin: 09/06/24 10:18 Dose: 1 tab Pregabalin (Pregabalin 75 Mg Capsule) 75 mg PO BID [facility] Stop: 03/05/25 20:59 Last Admin: 09/07/24 08:11 Dose: 75 mg Sodium Bicarbonate (Sodium Bicarbonate 650 Mg Tablet) 650 mg PO TID [facility] Stop: 09/06/25 19:59 Last Admin: 09/07/24 [...] Jori Ruiz M.D.09/06/2024 9:48 PM Dictation Location: [place] [address] Any impression(s) listed above is documentation that was entered by the reading physician into a diagnostic report(s) for Aislinnpamela Wheeler. I have reviewed the report(s) and am incorporating any findings in the treatment plan of this patient where applicable. A&P - Nephrology Assessment/Plan (1) ANATOLIY (acute kidney injury): Assessment/Problem Details: She had elevated creatinine higher than the baseline with evidence of bilateral hydronephrosis and hydroureter on the CT scan of the [facility] Renal ultrasound on 09/06/2024 showed [...] stated that she follow-up with urology at [facility] as well. * Continue sodium bicarb 650 [...] MD 09/07/24 1055 Signed By: 09/07/24 1107 [facility]01-17-2025 Radiology Diagnostic study note [facility] Main [place] [address] [place] [address] Ultrasound Report Signed Patient: Aislinn Wheeler MR#: [id number] : 1960 Acct:[id number] Age/Sex: 64 / F ADM Date: 5 Loc: Room: [address] [place] [address] Type: ADM IN Attending Dr: Gilmer Tai MD Ordering Provider: Ashley Diaz APRN Date of Service: 09/06/24 US/US renal BI: ANATOLIY Copies to: MD Ashley Love, CATCHER PLUG~ Bilateral Renal Ultrasound HISTORY: Acute kidney injury [...] Jori Ruiz M.D.09/06/2024 9:48 PM Dictation Location: [place] [address] Tech: Griselda Zahraa Transcribed By: AMEE 09/06/242147 Dictated By: Jori Ruiz DO 09/06/242145 Signed By: 09/06/242147 [facility]01-17-2025 Consult note Author Akin Dougherty [facility] Note Date/Time September 06, 2024 1 1:16am [facility] [address] [place] [address] Nephrology Consult Note Signed Patient: Aislinn Wheeler MR#: [id number] : 1960 Acct:[id number] Age/Sex: 64 / F Adm Date: 5 Loc: Room: [address] [place] [address] Type: ADM IN Attending Dr: Gilmer Tai MD Copies to: MD Akin Love MD Lisa J Aichholz, GRANULATING MACHINE OPERATOR-C~ Providers Consult Date: 09/06/24 Requesting Provider: Gilmer Tai MD Primary Care Provider: Agusto Olmstead [facility] Reason for Consult: ANATOLIY on CKD [...] complex cystic mass on the kidney at [facility] in 2023.. Patient is known to have neurogenic bladder she uses self cath at home for quitesome time however recently she ran out of supplies. Patient was seen by Dr. Sprague in the office on 115 and had creatinine was found to be 2.7 mg/dL much higher than previous baseline, potassium 5.8 and blood pressure 210/110. Initially she went to the [facility] ER on 09/04 and she had a [...] Patient was called again to come to [facility] as her potassium continues to be elevated [...] and no additional complaints, except as documented [facility] Medical History (Updated 09/06/24 @ 11:09 by [...] Mg/0.3 Ml Syringe) 30 mg SUBCUT DAILY@1000 [facility] Stop: 09/06/25 09:59 Last Admin: 09/06/24 10:18 Dose: 30 mg Furosemide (Furosemide 40 Mg Tablet) 40 mg PO BID@0800,1600 [facility] Stop: 09/06/25 15:59 Glucose (Dextrose 40% Gel 15 Gm Tube) 0 gm PO PRN PRN PRN Reason: Hypoglycemia Stop: 09/05/25 22:01 Hyoscyamine (Hyoscyamine Sulfate 0.125 Mg Tab.Rapdis) 0.125 mg SUBLINGUAL Q4H PRN PRN Reason: Bladder Spasms Stop: 09/06/25 02:45 Last Admin: 09/06/24 08:56 Dose: 0.125 mg Sodium Bicarbonate 150 meq/ (Dextrose) 1,150 mls @ 100 mls/hr IV .[id number] [facility] Stop: 09/06/24 21:59 Magnesium Sulfate (Magnesium Sulf 4 Gm-*Swfi*) 4 gm in 100 mls @ 25 mls/hr IV ONCE ONE Stop: 09/06/24 13:51 Last Admin: 09/06/24 10:18 Dose: 25 mls/hr Insulin Aspart (Insulin Aspart 300 Units/3 Ml) 0 units SUBCUT TID.WM.HS [facility]; Protocol Stop: 09/06/25 07:59 Last Admin: 09/06/24 07:53 Dose: 1 units Insulin Glargine (Insulin Glargine 300 Units/3 Ml Insuln.Pen) 28 units SUBCUT QHS [facility] Stop: 09/06/25 21:59 Metoprolol Succinate (Metoprolol Succinate 50 Mg Tab.Er.24h) 50 mg PO DAILY [facility] Stop: 09/06/25 08:59 Last Admin: 09/06/24 08:56 Dose: 50 mg Non-Formulary Medication (Insulin Lispro) 1 sliding scale dose SUBCUT AC [facility] Stop: 09/06/25 11:29 Oxycodone/Acetaminophen (Oxycodone/Acetaminophen 5-325 Mg Tablet) 1 tab PO Q4H PRN PRN Reason: Pain Scale 4 - 7 Last Admin: 09/06/24 10:18 Dose: 1 tab Pregabalin (Pregabalin 75 Mg Capsule) 75 mg PO BID [facility] Stop: 03/05/25 20:59 Sodium Bicarbonate (Sodium Bicarbonate 650 Mg Tablet) 650 mg PO TID [facility] Stop: 09/06/25 19:59 Sodium Chloride (Sodium [...] Cloudy A Urine pH 6.0 Ur Specific Aurora 1.007 Urine Protein 70 H Urine Glucose [...] of the [facility]. (2) Uropathy, obstructive: Assessment/Problem Details: [...] <Electronically signed by MD Akin Dougherty> 09/06/24 [facility] Work Phone: [phone] [place] [phone] Nephrology Consult Note Signed Patient: Aislinn Wheeler MR#: [id number] : 1960 Acct:[id number] Age/Sex: 64 / F Adm Date: 5 Loc: Room: [address] [place] [address] Type: ADM IN Attending Dr: Gilmer Tai MD Copies to: MD Akin Love MD Lisa J Aichholz, GRANULATING MACHINE OPERATOR-C~ Providers Consult Date: 09/06/24 Requesting Provider: Gilmer Tai MD Primary Care Provider: Agusto Olmstead [facility] Reason for Consult: ANATOLIY on CKD [...] complex cystic mass on the kidney at [facility] in 2023.. Patient is known to have neurogenic bladder she uses self cath at home for quitesome time however recently she ran out of supplies. Patient was seen by Dr. Sprague in the office on 115 and had creatinine was found to be 2.7 mg/dL much higher than previous baseline, potassium 5.8 and blood pressure 210/110. Initi ally she went to the [facility] ER on 09/04 and she had a [...] Patient was called again to come to [facility] as her potassium continues to be elevated [...] and no additional complaints, except as documented [facility] Medical History (Updated 09/06/24 @ 11:09 by [...] Bitart/Acetaminophen (Hydrocodone/Acetaminophen 7.5-325mg Tablet) 1tab PO Q8HR [facility] Atorvastatin Calcium (Atorvastatin 20 Mg Tablet) 20 mg PO DAILY [facility] Stop: 09/07/25 08:59 Ceftriaxone Sodium (Ceftriaxone 1 Gm/10 Ml Syringe) 1 gm IV-PUSH Q24H [facility] Last Admin: 09/06/24 01:26 Dose: 1 gm Dextrose (Dextrose 50% In Water 25 Gm/50 Ml Syringe) 0 gm IV-PUSH PRN PRN PRN Reason: Hypoglycemia Stop: 09/05/25 22:01 Enoxaparin Sodium (Enoxaparin 30 Mg/0.3 Ml Syringe) 30 mg SUBCUT DAILY@1000 [facility] Stop: 09/06/25 09:59 Last Admin: 09/06/24 10:18 Dose: 30 mg Furosemide (Furosemide 40 Mg Tablet) 40 mg PO BID@0800,1600 [facility] Stop: 09/06/25 15:59 Glucose (Dextrose 40% Gel 15 Gm Tube) 0 gm PO PRN PRN PRN Reason: Hypoglycemia Stop: 09/05/25 22:01 Hyoscyamine (Hyoscyamine Sulfate 0.125 Mg Tab.Rapdis) 0.125 mg SUBLINGUAL Q4H PRN PRN Reason: Bladder Spasms Stop: 09/06/25 02:45 Last Admin: 09/06/24 08:56 Dose: 0.125 mg Sodium Bicarbonate 150 meq/ (Dextrose) 1,150 mls @ 100 mls/hr IV .[id number] [facility] Stop: 09/06/24 21:59 Magnesium Sulfate (Magnesium Sulf 4 Gm-*Swfi*) 4 gm in 100 mls @ 25 mls/hr IV ONCE ONE Stop: 09/06/24 13:51 Last Admin: 09/06/24 10:18 Dose: 25 mls/hr Insulin Aspart (Insulin Aspart 300 Units/3 Ml) 0 units SUBCUT TID.WM.HS [facility]; Protocol Stop: 09/06/25 07:59 Last Admin: 09/06/24 07:53 Dose: 1 units Insulin Glargine (Insulin Glargine 300 Units/3 Ml Insuln.Pen) 28 units SUBCUT QHS [facility] Stop: 09/06/25 21:59 Metoprolol Succinate (Metoprolol Succinate 50 Mg Tab.Er.24h) 50 mg PO DAILY [facility] Stop: 09/06/25 08:59 Last Admin: 09/06/24 08:56 Dose: 50 mg Non-Formulary Medication (Insulin Lispro) 1 sliding scale dose SUBCUT AC [facility] Stop: 09/06/25 11:29 Oxycodone/Acetaminophen (Oxycodone/Acetaminophen 5-325 Mg Tablet) 1 tab PO Q4H PRN PRN Reason: Pain Scale 4 - 7 Last Admin: 09/06/24 10:18 Dose: 1 tab Pregabalin (Pregabalin 75 Mg Capsule) 75 mg PO BID [facility] Stop: 03/05/25 20:59 Sodium Bicarbonate (Sodium Bicarbonate 650 Mg Tablet) 650 mg PO TID [facility] Stop: 09/06/25 19:59 Sodium Chloride (Sodium [...] Cloudy A Urine pH 6.0 Ur Specific Aurora 1.007 Urine Protein 70 H Urine Glucose [...] of the [facility]. (2) Uropathy, obstructive: Assessment/Problem Details: [...] Dr. Tai Documented By: Akin Dougherty MD 09/06/241055 Signed By: 09/06/24 1116 [facility]01-17-2025 History and physical note Author Alejandro Vallejo [facility] Note Date/Time September 06, 2024 1 2:23am [facility] [address] [place] [address] Hospitalist H&P Signed Patient: Aislinn Wheeler MR#: [id number] : 1960 Acct:[id number] Age/Sex: 64 / F Adm Date: 5 Loc: Room: [address] [place] [address] Type: ADM IN Attending Dr: Alejandro Vallejo MD Copies to: MD Agusto Pabon, GRANULATING MACHINE OPERATOR-C~ HPI DATE OF EXAMINATION: 09/06/24 CHIEF COMPLAINT: Abnormal labs HISTORY OF PRESENT ILLNESS: Ms. 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 She had a routine appointment yesterday and was asked to get admitted in the hospital for abnormal labs. She went to [facility] whereshe was treated for urinary tract infection and hypokalemia. She was dischargedtoday and checked with her heavy equipment plumbing supervisor who recommended her to come to this [...] negative unless noted below or in HPI [facility] Medical History (Updated 09/05/24 @ 20:43 by [...] % (Auto) 25.0 % (.) 09/05/24 17:56 Upson % (Auto) 5.8 % (.) 09/05/24 17:56 Eos % (Auto) 2.2 % (.) 09/05/24 17:56 Baso % (Auto) 1.4 % (.) 09/05/24 17:56 Nucleat RBC Rel Count 0.1 /100 WBC (0-0.5) 09/05/24 17:56 Neut # (Auto) 5.5 x10E3/uL (1.8-7.7) 09/05/24 17:56 Lymph # (Auto) 2.1 x10E3/uL (1.00-4.8) 09/05/24 17:56 Upson # (Auto) 0.5 x10E3/uL (0.0-0.8) 09/05/24 17:56 [...] pH 6.0 (5.0-9.0) 09/05/24 18:19 Ur Specific Aurora 1.007 (1.001-1.030) 09/05/24 18:19 Urine Protein 70 [...] vitamin D deficiency, diabetes, who 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 She went to [facility] where she was treated for urinary tract infection and hypokalemia. She was discharged today and checked with her heavy equipment plumbing supervisor who recommended her to come to this [...] scale of 1 for history of diabetes -Mail Clerk consulted -May consider urology consult for urine [...] signed by Alejandro Vallejo MD> 09/06/24 0023 [facility] Work Phone: 1(607) 619-762001-17-2025 History and physical [place] [id number] Hospitalist H&P Signed Patient: Aislinn Wheeler MR#: [id number] : 1960 Acct:[id number] Age/Sex: 64 / F Adm Date: 5 Loc: 3T Room: [address] [place] [address] Type: ADM IN Attending Dr: Alejandro Vallejo MD Copies to: MD Agusto Pabon NP-C~ HPI DATE OF EXAMINATION: 09/06/24 CHIEF COMPLAINT: Abnormal labs HISTORY OF PRESENT ILLNESS: Ms. 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 She had a routine appointment yesterday and was asked to get admitted in the hospital for abnormal labs. Shewent to [facility] whereshe was treated for urinary tract infection and hypokalemia. She was dischargedtoday and checked with her heavy equipment plumbing supervisor who recommended her to come to this [...] negative unless noted below or in HPI [facility] Medical History (Updated 09/05/24 @ 20:43 by [...] % (Auto) 25.0 % (.) 09/05/24 17:56 Upson % (Auto) 5.8 % (.) 09/05/24 17:56 Eos % (Auto) 2.2 % (.) 09/05/24 17:56 Baso % (Auto) 1.4 % (.) 09/05/24 17:56 Nucleat RBC Rel Count 0.1 /100 WBC (0-0.5) 09/05/24 17:56 Neut # (Auto) 5.5 x10E3/uL (1.8-7.7) 09/05/24 17:56 Lymph # (Auto) 2.1 x10E3/uL (1.00-4.8) 09/05/24 17:56 Upson # (Auto) 0.5 x10E3/uL (0.0-0.8) 09/05/24 17:56 [...] pH 6.0 (5.0-9.0) 09/05/24 18:19 Ur Specific Aurora 1.007 (1.001-1.030) 09/05/24 18:19 Urine Protein 70 [...] vitamin D deficiency, diabetes, who 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 She went to [facility] where she was treated for urinary tract infection and hypokalemia. 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 acute [facility] 2024 11:12am Hyperkalemia acute August 11:12am Hyperparathyroidism acute 2024 11:12am Hypertensive nephropathy acute September 04, 2024 11:12am Hypomagnesemia acute September 042024 11:12am Iron deficiency anemia acute [facility] 2024 11:12am Neurogenic bladder acute 2024 11:12am Renal cyst acute September 04, 2024 11:12am Vitamin D deficiency acute 2024 11:12am ANATOLIY (acute kidney injury) acute September 05, 2024 9:58pm History of neurogenic bladder acute September 05, 2024 9:58pm Hyperkalemia acute August 9:58pm Iron deficiency anemia acute [facility] 2024 9:58pm Urinary retention acute September 05, 2024 9:58pm Vitamin D deficiency acute 2024 9:58pm Chronic kidney disease removed [facility] 2024 9:58pm [facility] Work Phone: 1(946) 368-897601-15-2025 Evaluation note* Diagnosis Onset Date Resolution Status Admit Date Anemia of renal disease acute J anuary 2024 11:12am B12 deficiency acute September 042024 11:12am CKD stage 3b, GFR 30-44 ml/min acute September 04, 2024 11:12am 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 acute [facility] 2024 11:12am Hyperkalemia acute August 11:12am Hyperparathyroidism acute 2024 11:12am Hypertensive nephropathy acute September 04, 2024 11:12am Hypomagnesemia acute September 042024 11:12am Iron deficiency anemia acute [facility] 2024 11:12am Neurogenic bladder acute 2024 11:12am Renal cyst acute September 04, 2024 11:12am Vitamin D deficiency acute 2024 11:12am ANATOLIY (acute kidney injury) acute September 05, 2024 9:58pm 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 acute [facility] 2024 9:58pm History of neurogenic bladder acute September 05, 2024 9:58pm Hyperkalemia acute August 9:58pm Hypertensive nephropathy acute September 05, 2024 9:58pm Iron deficiency anemia acute [place] 2024 9:58pm Metabolic acidosis acute 2024 9:58pm Urinary retention acute September 05, 2024 9:58pm Uropathy, obstructive acute Aug 9:58pm Vitamin D deficiency acute 2024 9:58pm Chronic kidney disease removed [place] 2024 9:58pm [facility] Work Phone: 1(991) 517-619701-15-2025 Evaluation note* Diagnosis Onset Date Resolution Status [...] madhavi with type 2 diabetes mellitus resolved [facility] 2024 11:12am Hypertensive nephropathy resolved September 04, 2024 11:12am Iron deficiency anemia resolved [facility] 2024 11:12am Vitamin D deficiency resolved [facility]2024 11:12am ANATOLIY (acute kidney injury) resolved September 05, 2024 9:58pm 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 resolved [facility] 2024 9:58pm History of neurogenic bladder resolv ed September 05, 2024 9:58pm Hyperkalemia resolved August 9:58pm Hypertensive nephropathy resolved September 05, 2024 9:58pm Iron deficiency anemia resolved [facility] 2024 9:58pm Metabolic acidosis resolved 2024 9:58pm Urinary retention resolved September 05, 2024 9:58pm Uropathy, obstructive resolved [facility] 2024 9:58pm Vitamin D deficiency resolved [facility] 2024 9:58pm Chronic kidney disease removed [facility] 2024 9:58pm Acute electrocardiogram changes acut e November 23, 2024 6:09pm Anemia of renal disease acute [place] 2024 6:09pm Chest pain acute November 23 6:09pm CKD stage 3b, GFR 30-44 ml/min acute November 23, 2024 6:09pm Hydroureteronephrosis acute Apr 2024 6:09pm Hyperkalemia acute November 23, 025 6:09pm Hypertensive emergency acute [place] 2024 6:09pm Neurogenic bladder acute November 23, 2024 6:09pm Overactive bladder acute November 23, 2024 6:09pm [facility] Work Phone: 1([phone]) 224-707901-15-2025 Evaluation note* Diagnosis Onset Date Resolution Status Admit Date Anemia of renal disease acute J anuary 2024 11:12am B12 deficiency acute September 042024 11:12am CKD stage 3b, GFR 30-44 ml/min acute September 04, 2024 11:12am Hyperkalemia acute August 11:12am Hyperparathyroidism acute Jan[place] 2024 11:12am Hypomagnesemia acute September 042024 11:12am Neurogenic bladder acute Auguar [place] 2024 11:12am Renal cyst acute September 04, 2024 11:12am 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 resolved [facility] 2024 11:12am Hypertensive nephropathy resolved September 04, 2024 11:12am Iron deficiency anemia resolved [facility] 2024 11:12am Vitamin D deficiency resolved [facility] 2024 11:12am Metabolic acidosis chronic r y 2024 9:58pm ANATOLIY (acute kidney injury) resolved September 05, 2024 9:58pm 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 resolved [facility] 2024 9:58pm History of neurogenic bladder resolv ed September 05, 2024 9:58pm Hyperkalemia resolved August 9:58pm Hypertensive nephropathy resolved September 05, 2024 9:58pm Iron deficiency anemia resolved [facility] 2024 9:58pm Urinary retention resolved September 05, 2024 9:58pm Uropathy, obstructive resolved [facility] 2024 9:58pm Vitamin D deficiency resolved [facility] 2024 9:58pm Chronic kidney disease removed [facility] 2024 9:58pm Acute electrocardiogram changes acut e [...] 025 6:09pm Hypertensive emergency acute Ap ril 5th, 2025 6:09pm Neurogenic bladder acute November 23, 2024 6:09pm Overactive bladder acute November 23, 2024 6:09pm [facility] Work Phone: 1([phone]) 872-890801-07-2025 History of Present illness Narrative* Agsuto Olmstead NP - 08/27/2024 6:39 PM ESTAssociated [...] risk factors for CAD [facility] [place], has seen Danial in the past * Agusto Olmstead NP - 08/27/2024 3:00 PM ESTAssociated Problem(s): Type 2 diabetes mellitus with hyperglycemia, with long-term current use of insulin ([facility]) Check blood sugars daily, notify if <70 [...] Problem(s): Chronic kidney disease, stage 4 (severe) ([facility]) Long standing uncontrolled HTN and DM Multiple attempts to get pt to specialists, does not follow through She is established with local Mail Clerk Continue to follow Goal: bp and DM control * Agusto Olmstead NP - 08/27/2024 2:57 PM ESTAssociated Problem(s): Essential (primary) hypertension ([facility]) Please check blood pressure daily and record [...] neuropathy, with long-term current use of insulin ([facility]) Reports increase in neuropathy symptoms, is on lyrica at 150mg TID, also takes percocet for RSD At last appt started addition of duloxetine at 20mg daily * PADMAJA SULLIVAN - 08/27/2024 2:20 PM EST Mail Clerk on 09/04 Pt was told she needs to be scheduled with a installation manager she seen one [facility] at [facility] before. Pt would also like another opinion with a urologist for a bladder [facility] [place] [facility] Blurry vision, dizziness, feel dieing out machine operator the face * Agusto Olmstead NP - [...] test strip 4 times daily use HYDROcodone-acetaminophen (Creston) 7.5-325 MG tablet 1 tablet, 3 times [...] of left great toe (CMS/HCC) Cervical cancer (CMS/HCC) 10/11/2023 had Hysterectomy Charcot's joint of foot, left 10/11/2023 Chronic kidney disease, stage III (moderate) ([facility]) ([facility]) 10/11/2023 Fatty liver 10/11/2023 History of hysterectomy [...] of nail of digit of hand Osteoporosis ([facility]) 10/11/2023 Post-menopausal 10/11/2023 Rheumatoid arthritis ([facility]) 10/11/2023 RSD (reflex sympathetic dystrophy) 10/11/2023 Type 2 diabetes mellitus with diabetic neuropathy, unspecified whether oil heaterman insulin use ([facility]) 10/11/2023 Visual impairment 10/11/2023 HAD BILATERAL CATARCT [...] hyperglycemia, with long-term current use of insulin ([facility]) Check blood sugars daily, notify if <70 [...] neuropathy, with long-term current use of insulin ([facility]) - Primary Reports increase in neuropathy symptoms, is on lyrica at 150mg TID, also takes percocet for RSD At last appt started addition of duloxetine at 20mg daily Relevant Orders Basic metabolic panel Continuous leakage of urine Would like a second opinion about need for sling etc Relevant Orders Ambulatory referral to Urogynecology Chronic kidney disease, stage 4 (severe) ([facility]) Long standing uncontrolled HTN and DM Multiple attempts to get pt to specialists, does not follow through She is established with local Mail Clerk Continue to follow Goal: bp and DM control Other chest pain Had stress test and ECHO in 2022 at [facility], no acute ischemic findings Strong risk factors for CAD Will refer to [facility], in [place], has seen Danial in the past Relevant Orders Ambulatory referral to Cardiology Other Visit Diagnoses Type 2 diabetes mellitus with diabetic neuropathy, unspecified whether detention insulin use ([facility]) documented in this [facility]01-07-2025 Instructions* Patient Instructions* Agusto Olmstead NP - 08/27/2024 2:20 PM EST Heart doctor: for chest pain, at [facility], they will call you Bladder/sling: urogynecologist, [facility] [place] they will call you, Blood pressure: keep taking metoprolol, add amlodipine at 5mg once day documented in this [facility]01-02-2025 Miscellaneous Notes* Telephone Encounter - Asia Barreto RN - 08/22/2024 3:14 PM EST Last Office Visit: 07/03/2024 Next Office Visit: 10/09/2024 Last Urine Drug Screen: Lab Results Component Value Date BENZOSCRN Negative 08/09/2023 OARRS appropriate [facility] Tele[facility] encounter Note* Telephone Encounter - Asia Barreto RN - 08/22/2024 3:14 PM EST Last Office Visit: 07/03/2024 Next Office Visit: 10/09/2024 Last Urine Drug Screen: Lab Results Component Value Date BENZOSCRN Negative 08/09/2023 OARRS appropriate [facility]12-24-2024 History of Present illness Narrative* Agusto Olmstead NP - 08/13/2024 6:02 AM EST Updating meds documented in this encounterCitizens Memorial [id number] Telephone encounter Note* Telephone Encounter - Adama [...] locally Cystatin C and CMP sent to [facility] ( ; fx [phone]) and asked her to go to lab [...] Sent: 06/20/2024 12:00 PM EDT To: Adama Velacso RN; Juanito Barnard MD Subject: Surgery Patient called states she wants to proceed with surgery Thanks [facility] Work Phone: 1(178) 823-293611-06-2024 Miscellaneous Notes* Telephone Encounter - Adama Velasco [...] locally Cystatin C and CMP sent to [facility] ( ; fx [phone]) and asked her to go to lab [...] proceed with surgery Thanks documented in this encounterTuscarawas Hospital10-22-2024 History of Present illness Narrative* Agusto [...] long-term current use of insulin ([facility]) Will recheck A1c level Continue current insulin at this time Hx of non compliance with fu appts w specialist * Agusto Olmstead NP - 06/11/2024 12:54 PM EDTAssociated Problem(s): Chronic kidney disease, stage 3b (HCC) ([facility]) Has to get labs for nephrology and fu appt with them Discussed with pt the importance of adequte blood pressure and blood sugar control to help slow theprogression of CKD * Agusto Olmstead NP - 06/11/2024 12:54 PM EDTAssociated Problem(s): Continuous leakage of urine Continue with urology * Agusto Olmstead NP - 06/11/2024 12:53 PM EDTAssociated Problem(s): Primary hypertension ([facility]) Has not been taking both amlodipine and [...] diabetes mellitus with diabetic neuropathy, unspecified whether detention insulin use ([facility]) Reports increase in neuropathy symptoms, is on [...] is not being taken. She sees a civil engineering assistant.Eye exam is not current. SUBJECTIVE: MEDICATIONS: Current [...] test strip 4 times daily use HYDROcodone-acetaminophen ([place]) 7.5-325 MG tablet 1 tablet, Oral, 3 [...] Diagnosis Date Amputation of left great toe ([facility]) Cervical cancer ([facility]) 10/11/2023 had Hysterectomy Charcot's joint of foot, left 10/11/2023 Chronic kidney disease, stage III (moderate) ([facility]) ([facility]) 10/11/2023 Fatty liver 10/11/2023 History of hysterectomy 10/11/2023 Cervical cancer Hyperkalemia Hyponatremia Leakage of urine from ureter Lupus ([facility]) Memory impairment of gradual onset MOCA: on [...] of nail of digit of hand Osteoporosis ([facility]) 10/11/2023 Post-menopausal 10/11/2023 Rheumatoid arthritis ([facility]) 10/11/2023 RSD (reflex sympathetic dystrophy) 10/11/2023 Type 2 diabetes mellitus with diabetic neuropathy, unspecified whether oil heaterman insulin use ([facility]) 10/11/2023 Visual impairment 10/11/2023 HAD BILATERAL CATARCT [...] hyperglycemia, with long-term current use of insulin ([facility]) Will recheck A1c level Continue current insulin at this time Hx of non compliance with fu appts w specialist Relevant Orders Basic metabolic panel Hemoglobin A1c 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 ([facility]) IESHA (iron deficiency anemia) Primary hypertension ([facility]) Has not been taking both amlodipine and metoprolol We will start over with amlodipine at 10mg daily Fu in 2 weeks for blood pressure check Recheck in office 188/90 Relevant Medications amLODIPine (Norvasc) 10 MG tablet Type 2 diabetes mellitus with diabetic neuropathy, unspecified whether oil heaterman insulin use ([facility]) Reports increase in neuropathy symptoms, is on lyrica at 150mg TID, also takes percocet for RSD Will trial addition of duloxetine at 20mg daily Fu in 4-6 weeks Relevant Medications DULoxetine (Cymbalta) [address] capsule RSD (reflex sympathetic dystrophy) Continue with pain mgmt Malignant neoplasm of cervix uteri, unspecified ([facility]) Rheumatoid arthritis, unspecified ([facility]) Does not follow with Rheumatology Continuous leakage of urine Continue with urology 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 Type 2 diabetes mellitus with diabetic chronic kidney disease ([facility]/HCC) Chronic kidney disease, stage 3b (HCC) ([facility]) Has to get labs for nephrology and fu appt with them Discussed with pt the importance of adequte blood pressure and blood sugar control to help slow theprogression of CKD Hyperparathyroidism, unspecified ([facility]) Other Visit Diagnoses Essential (primary) hypertension ([facility]/HCC) - Primary documented in this encounterCitizens Memorial [id number] NoteReceived referral again with no C9 approval attached. Spoke with referring provider's office. They will send message to the referral's office to fax C9 approval. I provided my contact information and fax number.[facility]09-19-2024 NoteReviewed pt's referral. Pt is being referred for SCS trial consult with [facility], however, it states in the note that [...] Please do not schedule if pt calls back.[facility] 05-01-2024 History of Present illness Narrative* Juanito Barnard MD - 05/01/2024 10:00 AM EDT Images from the original note were not included. [facility] UROLOGY NEW PATIENT [...] chronic constipation Juanito Barnard MD Associate Staff [facility] [place] Department of Urology I spent a total of 30 minutes on the date of the service which included preparing to see the patient, [id number] patient care, completing clinical documentation, obtaining and/or reviewing separately obtained history, performing a medically appropriate examination, counseling and educating the pat ient/family/caregiver, and ordering medications, tests, or procedures. >50% of time was devoted to patient counseling. documented in this encounterTuscarawas Hospital09-11-2024 NoteHNO ID: [id number] Author: JUANITO BARNARD MD Service: ? Author Type: Physician Type: Progress Notes Filed: 05/01/2024 12:12 Note Text: [facility] UROLOGY NEW PATIENT [...] stable Resp: normal e (more content not included)...[facility] 05-01-2024 NotePatient Outreach (UROMARAHN) AISLINN WHEELER ([id number]) 1960 F Date Time Provider Department 05/01/24 [...] for genitourinary condition [Z13.89] Order(s):URINALYSIS, REFLEX MICROSCOPIC [[id number]] Order #: [id number]. #:[id number] Prescriptions as of 05/06/2024 - metoprolol succinate [...] without hematuria [N39.*08/31/2023 09/04/2023 Encounter Status:Closed by [employer], PRODUSER on 05/06/24[facility] 04-16-2024 History of Present illness Narrative* Agusto Olmstead NP - 04/16/2024 4:31 PM EDTAssociated Problem(s): Rheumatoid arthritis, unspecified ([facility]) Does not follow with Rheumatology * Agusto Olmstead NP - 04/16/2024 4:31 PM EDTAssociated Problem(s): Type 2 diabetes mellitus with hyperglycemia, with long-term current use of insulin ([facility]) A1c is improving * Agusto Olmstead NP - 04/16/2024 4:31 PM EDTAssociated Problem(s): Type 2 diabetes mellitus with diabetic chronic kidney disease (HCC) ([facility]) A1c is coming down Cont current meds * Agusto Olmstead NP - 04/16/2024 4:30 PM EDTAssociated Problem(s): Malignant neoplasm of cervix uteri, unspecified ([facility]/HCC) Had hyst * Agusto Olmstead NP - 04/16/2024 4:30 PM EDTAssociated Problem(s): Chronic kidney disease, stage 3b (HCC) ([facility]) Will re refer to Nephrology * Agusto [...] test strip 4 times daily use HYDROcodone-acetaminophen (Crest[place]) 7.5-325 MG tablet 1 tablet, Oral, 3 [...] Diagnosis Date Amputation of left great toe ([facility]) Cervical cancer ([facility]) 10/11/2023 had Hysterectomy Charcot's joint of foot, left 10/11/2023 Chronic kidney disease, stage III (moderate) ([facility]) ([facility]) 10/11/2023 Fatty liver 10/11/2023 History of hysterectomy 10/11/2023 Cervical cancer Hyperkalemia Hyponatremia Leakage of urine from ureter Lupus ([facility]) Memory impairment of gradual onset MOCA: on [...] of nail of digit of hand Osteoporosis ([facility]) 10/11/2023 Post-menopausal 10/11/2023 Rheumatoid arthritis ([facility]) 10/11/2023 RSD (reflex sympathetic dystrophy) 10/11/2023 Type 2 diabetes mellitus with diabetic neuropathy, unspecified whether oil heaterman insulin use ([facility]) 10/11/2023 Visual impairment 10/11/2023 HAD BILATERAL CATARCT [...] hyperglycemia, with long-term current use of insulin ([facility]) A1c is improving Stage 3a chronic kidney disease (HCC) ([facility]/HCC) Relevant Orders Ambulatory referral to Nephrology Malignant neoplasm of cervix uteri, unspecified ([facility]/HCC) Had hyst Rheumatoid arthritis, unspecified ([facility]) Does not follow with Rheumatology Type 2 diabetes mellitus with diabetic chronic kidney disease (HCC) ([facility]) A1c is coming down Cont current meds Chronic kidney disease, stage 3b (HCC) ([facility]) Will re refer to Nephrology Hyperparathyroidism, unspecified ([facility]) Relevant Orders Ambulatory referral to Nephrology Chronic cough - Primary Check xray Consider antihistamine and nasal steroids Will await the results Relevant Orders XR chest 2 views documented in this encounterCitizens Memorial [id number] NoteHNO ID: [id number] Author: ?, ?, ? Service: ? Author Type: ? Type: Progress Notes Filed: 04/15/2024 07:29 Note Text: Incidental Lung Nodule Enrollment Outreach attempt: 3rd Attempt Outreach status: Complete Enrolled in Lung Nodule program: No Declined reason: Other Lung Nodule Program Location: [place] Two letter attempts, no response. Discharge letter sent.[facility]08-26-2024 History of Present illness Narrative* Chioma Durán - 04/15/2024 7:28 AM EDT Incidental Lung Nodule Enrollment Outreach attempt: 3rd Attempt Outreach status: Complete Enrolled in Lung Nodule program: No Declined reason: Other Lung Nodule Program Location: [place] Two letter attempts, no response. Discharge letter sent. documented in this encounterTuscarawas Hospital08-26-2024 NotePatient Outreach (PULMMN) AISLINN WHEELER ([id number]) 1960 F Date Time Provider Department 04/15/24 CHIOMA DURÁN During your visit today, we recorded the following information about you: Chioma Durán 04/15/2024 7:29 AM Signed Incidental Lung Nodule Enrollment Outreach attempt: 3rd Attempt Outreach status: Complete Enrolled in Lung Nodule program: No Declined reason: Other Lung Nodule Program Location: [place] Two letter attempts, no response. Discharge letter [...] Text Encounter Status:Closed by CHIOMA DURÁN on 04/15/24[facility]08-20-2024 NoteHNO ID: [id number] Author: CARMENZA ESPINOSA MD Service: ? Author [...] visit. Either the patient or their legal footwear sales representative has been informed of the risks and benefits of -- and alternatives to -- treatment through a remote evaluation and consents to proceed with the evaluation remotely.[facility]08-20-2024 History of Present illness Narrative* Carmenza Espinosa [...] BURKE at LONG TERM of 100ml. Bladder remodelingwithout VUR. Valsalva voiding [...] visit. Either the patient or their legal footwear sales representative has been informed of the risks and benefits of -- and alternatives to -- treatment through a remote evaluation andconsents to proceed with the evaluation remotely. documented in this encounterTuscarawas Hospital08-19-2024 NoteHNO ID: [id number] Author: ?, ?, ? Service: ? Author Type: ? Type: Progress Notes Filed: 04/08/2024 09:39 Note Text: Incidental Lung Nodule Enrollment Outreach attempt: 2nd Attempt Outreach status: Complete Enrolled in Lung Nodule program: Referred Lung Nodule outreach: Needs outreach Lung Nodule Program [facility] [place] [facility] of Present illness Narrative* Chioma Durán - 04/08/2024 9:38 AM EDT Incidental Lung Nodule Enrollment Outreach attempt: 2nd Attempt Outreach status: Complete Enrolled in Lung Nodule program: Referred Lung Nodule outreach: Needs outreach Lung Nodule Program Location: [place] Two letter attempts documented in this encounterTuscarawas Hospital08-19-2024 NotePatient Outreach (PULMMN) LIAMAISLINN ([id number]) 1960 F Date Time Provider Department 04/08/24 CHIOMA DURÁN During your visit today, we recorded the following information about you: Chioma Durán 04/08/2024 9:39 AM Signed Incidental Lung Nodule Enrollment Outreach attempt: 2nd Attempt Outreach status: Complete Enrolled in Lung Nodule program: Referred Lung Nodule outreach: Needs outreach Lung Nodule Program Location: [place] Two letter attempts Allergies As of Date: [...] Text Encounter Status:Closed by CHIOMA DURÁN on 04/08/24[facility]08-13-2024 NoteHNO ID: [id number] Author: CARMENZA ESPINOSA MD Service: ? Author Type: Physician Type: Progress Notes Filed: 04/02/2024 11:52 Note Text: [facility] [place] FOR FEMALE PELVIC MEDICINE AND RECONSTRUCTIVE SURGERY [...] Patient position - Sitting Radiologic Findings: A cafe server radiograph was obtained. The bony and soft tissue structures are within normal. 147 ccs contrast were used to fill the bladder. The bladder outline is irregular/trabeculated and abnormal shaped appearing. There is no ureteral reflux. During the voiding phase there is abnormal bladder neck opening and urethra is not visualized. Bladder emptying is not visualized Read by - Carmenza Espinosa [facility]08-09-2024 Nurse Note* Lorie Burrows RN - 03/29/2024 1:21 PM EDT [facility] URODYNAMICS LAB [...] allergy: No Females- Is patient : No Director Pharmacology offered:Patient declines B/O UA: Yes, Negative for [...] Pt states an understanding of instructions given. [facility]08-09-[facility] Nurse Note* Lorie Burrows RN - 03/29/2024 1:21 PM EDT [facility] URODYNAMICS LAB [...] allergy: No Females- Is patient : No Director Pharmacology offered:Patient declines B/O UA: Yes, Negative for [...] understanding of instructions given. documented in this encounterTuscarawas Hospital08-07-2024 NoteHNO ID: [id number] Author: NURIA READ APRN.E BUSINESS CONSULTANT Service: ? Author Type: Nurse Practitioner Type: Progress Notes Filed: 03/27/2024 14:36 Note Text: Incidental Lung Nodule Enrollment Outreach attempt: 1st Attempt Outreach status: Complete Enrolled in Lung Nodule program: Referred Lung Nodule outreach: Needs outreach Lung Nodule Program Location: [facility]08-07-2024 History of Present illness Narrative * Nuria Read APRN.E BUSINESS CONSULTANT - 03/27/2024 2:33 PM EDT Incidental Lung Nodule Enrollment Outreach attempt: 1st Attempt Outreach status: Complete Enrolled in Lung Nodule program: Referred Lung Nodule outreach: Needs outreach Lung Nodule Program Location: [facility] [place] documented in this encounterTuscarawas Hospital08-07-2024 NotePatient Outreach ([id number]) AISLINN WHEELER ([id number]) 1960 F Date Time Provider Department 03/27/24 NURIA READ [id number] During your visit today, we recorded the following information about you: Nuria Read APRN.CNP 03/27/2024 2:36 PM Signed Incidental Lung Nodule Enrollment Outreach attempt: 1st Attempt Outreach status: Complete Enrolled in Lung Nodule program: Referred Lung Nodule outreach: Needs outreach Lung Nodule Program Location: [facility] Big [place] Allergies As of Date: [...] Text Encounter Status:Closed by NURIA READ on 03/27/24[facility] 03-26-2024 Instructions* Patient Instructions* Carmenza Espinosa [...] tothe test so you arrive [facility] with the urge to empty your [...] your bladder when you arrive [facility]. Speak with a nurse if you feel you must empty your bladder. If you are taking antibiotics for a urinary tract infection (UTI) or bladder infection, notify yourphysician's office immediately. We may reschedule your bladder test. Bring a list of all prescribed and steu-srj-epjhvak medications you are taking. If you should need assistance due to a language barrier or medical needs/condition, please notify the dental scheduler when making your appointment and one will be provided for you ([phone]). If you are taking overactive bladder medications [...] your test is finished. documented in this encounterTuscarawas Hospital08-06-2024 NoteHNO ID: [id number] Author: CARMENZA ESPINOSA MD Service: ? Author Type: Physician Type: Progress Notes Filed: 03/26/2024 11:54 Note Text: [facility] FOR FEMALE [...] her bladder. Had bladder botox injections at [facility] about 3 mo ago with no [...] Assessed 03/26/2024 PHYSICAL EXAM: Patient declined a insulation engineman General: No acute distress, well appearing : [...] questions and concerns were addressed. Carmenza Espinosa [facility]08-06-2024 History of Present illness Narrative* Carmenza Espinosa MD - 03/26/2024 11:03 AM EDT [facility] FOR FEMALE [...] her bladder. Had bladder botox injections at [facility] about 3 mo ago with no [...] Assessed 03/26/2024 PHYSICAL EXAM: Patient declined a insulation engineman General: No acute distress, well appearing : [...] ml Via bladder scan. documented in this encounterTuscarawas Hospital08-06-2024 NoteHNO ID: [id number] Author: MARIA TERESA HENRY MA Service: ? Author Type: International Account Representative Type: Progress Notes Filed: 03/26/2024 11:54 Note Text: Pt voided upon arrival. PVR = 205 ml Via bladder scan. Pt was doing ISC, but was told she could stop. Pt instructed to give a urine specimen. 2ND Repeat PVR PVR = 135 ml Via bladder scan.[facility]07-08-2024 Telephone encounter Note* Telephone Encounter - Flavio Coon RN - 02/26/2024 2:43 PM EDT Pt LVM asking for her CT scan results. Noted in pt chart was an unread message from regarding the most recent CT scan. LVM for pt and let her know about MyChart message and provided number if pt has any further questions. [facility]07-08-2024 Miscellaneous Notes* Telephone Encounter - Flavio Coon RN - 02/26/2024 2:43 PM EDT Pt LVM asking for her CT scan results. Noted in pt chart was an unread message from regarding the most recent CT scan. LVM for pt and let her know about MyChart message and provided number if pt has any further questions. documented in this encounterTuscarawas Hospital06-24-2024 Telephone encounter Note * Telephone Encounter - Vonnie Wilder RN - 02/12/2024 4:19 PM EDT Patient LVM requesting results from 02/01/24 CT Urogram. Will update medical team [facility]06-24-2024 Miscellaneous Notes* Telephone Encounter - Vonnie Wilder RN - 02/12/2024 4:19 PM EDT Patient LVM requesting results from 02/01/24 CT Urogram. Will update medical team documented in this encounterTuscarawas Hospital06-13-2024 History of Present illness Narrative* Heidy [...] PATIENT PRESENTS WITH AN IMPLANTABLE OR ATTACHED DUMP MOTOR OPERATOR: No RADIOLOGY DEPARTMENT: CT; Exam(s) Completed: Urogram PERIPHERAL IV DATA: Site assessment: Clean,Dry and Intact, Site disposition Discontinued SIGNED BY: RT Michael(R) February 01, 2024 2:50 PM documented in this encounterTuscarawas Hospital06-13-2024 NoteHNO ID: [id number] Author: PRERNA CORRAL RT(Raquel) Service: ? Author [...] PATIENT PRESENTS WITH AN IMPLANTABLE OR ATTACHED DUMP MOTOR OPERATOR: No RADIOLOGY DEPARTMENT: CT; Exam(s) Completed: Urogram PERIPHERAL IV DATA: Site assessment: Clean,Dry and Intact, Site disposition Discontinued SIGNED BY: Prerna Corral RT(R) February 01, 2024 2:50 [facility]06-13-2024 NoteHNO ID: [id number] Author: HEIDY LINDA RN Service: Nursing Author [...] Wheeler DATE: February 01, 2024 TIME: 2:50 [facility]05-24-2024 NoteHNO ID: [id number] Author: SANJANA ROSS MA Service: ? Author Type: International Account Representative Type: Progress Notes Filed: 01/12/2024 14:43 Note Text: Post Void Residual done on patient with 211 cc residual volume remaining. notified. [facility] History of Present illness Narrative* Sanjana Ross MA - 01/12/2024 1:53 PM EDT Post Void Residual done on patient with 211 cc residual volume remaining. notified. Sanjana Ross MA * Taurus Ballard MD - 01/12/2024 1:50 PM EDT [facility] FOLLOW-UP PATIENT HISTORY AND [...] urogram Will refer to Dr. Tamanna Ruiz APRN.E BUSINESS CONSULTANT Attending Note I have personally performed a [...] Past Histories independently gathered by the clinical support services rep and the remaining scribed note accurately describes my personal service to the patient. Dr. Taurus Ballard MD documented in this encounterTuscarawas Hospital05-24-2024 NoteHNO ID: [id number] Author: TAURUS BALLARD MD Service: ? Author Type: Physician Type: Progress Notes Filed: 01/12/2024 14:43 Note Text: [facility] PATIENT HISTORY AND [...] urogram Will refer to Dr. Tamanna Ruiz APRN.E BUSINESS CONSULTANT Attending Note I have personally performed a [...] Ballard MD Date: 01/12/2024 (more content not included)...[facility] HospitalT[facility]51 Hospital Discharge instructions Patient Education 10/25/2023 16:06:45 [...] including vitamins, herbs, eye drops, creams, and fppb-cml-vivjwdc medicines. Any problems you or family members [...] provider tells you to take them. Taking jbfy-klc-tywwfco medicines, vitamins, herbs, and supplements. General instructions [...] Follow these instructions at home: Medicines Take cqyz-xwo-tpjjvwz and prescription medicines only as told by [...] provider. Document Revised: 02/11/2022 Document Reviewed: 02/11/2022 [employer] Patient Education 2022 atokore. Follow Up Care 09/26/2023 08:43:34 With:HEIDY ARNOLD PA-C, URL Address: [address] [place] [address] When: Unknown [facility] [place] 02-07-2024 Miscellaneous Notes* Telephone Encounter - Drew Alston, Research Coordinator - 09/27/2023 2:32 PM ESTSumadama: CHRISTOPHER IRB# [id number] IRB# [id number]: Vascular events in patients undergoing same-day nonCardiac surgery - VALIANCE PI: Mary Rojas MD, LETY, BARNEY. Outcomes Research Department. Anesthesia [place]. [facility]. Aislinn Wheeler was unavailable at the listed phone number. We will attempt to contact the patient through [employer] message. Drew Esqueda Research Coordinator Research Coordinator documented in this encounterTuscarawas Hospital02-06-2024 Miscellaneous Notes* Telephone Encounter - Drew Alston Research Coordinator - 09/26/2023 3:31 PM ESTSummary: VALMARVA IRB# [id number] IRB# [id number]: Vascular events in patients undergoing same-day nonCardiac surgery - [facility]IANCE PI: Mary Rojas MD, MBA, BARNEY. Outcomes Research Department. Anesthesia [place]. [facility]. Aislinn Wheeler was unavailable at the listed phone number. We will attempt to contact the patient again at a later date. Drew Esqueda Research Coordinator Research Coordinator documented in this encounterTuscarawas Hospital01-14-2024 NoteHNO ID: [id number] Author: KRYSTA COPE MD Service: Hospital Medicine [...] -- 08/31/23 1115 activity - mobilize patient ([place], [place]) VTE Prophylaxis: VTE prophylaxis appropriate SIGNATURE: Krysta Cope MD PATIENT NAME: Aislinn Wheeler DATE: September 03, 2023 TIME: 6:31 [facility]01-13-2024 NoteHNO ID: [id number] Author: KRYSTA COPE MD Service: Hospital Medicine [...] -- 08/31/23 1115 activity - mobilize patient ([place]) VTE Prophylaxis: VTE prophylaxis appropriate SIGNATURE: Krysta Cope MD PATIENT NAME: Aislinn Wheeler DATE: September 02, 2023 TIME: 2:31 [facility]01-13-2024 NoteHNO ID: [id number] Author: NOTE, INTERFACE, ? Service: ? Author Type: ? Type: Progress Notes Filed: 09/02/2023 02:20 Note Text: Epic Scheduled Downtime: 09/02/2023 1:00:00 AM to 09/02/2023 2:04:22 [facility]01-12-2024 NoteHNO ID: [id number] Author: MIKE WILDER RN Service: Care Management Author Type: Registered Nurse Type: Care Mgt Progress Note Filed: 09/01/2023 15:30 Note Text: CARE MANAGEMENT WEEKEND PLANNING NOTE NO WEEKEND DISCHARGE Disposition: TBD Anticipated Discharge Date: No weekend DC anticipated Weekend [employer] Salesperson Pager #: Girish Rogers [phone] ANATOLIY UTI - repeat UA sent - bc pending Waiting on podiatry consult SIGNATURE: Mike Wilder RN PATIENT NAME: Aislinn Wheeler DATE: September 01, 2023 TIME: 3:28 PM PAGER/CONTACT #: [phone] NoteHNO ID: [id number] Author: ANTHONY BARROW MD Service: Hospital Medicine [...] -- 08/31/23 1115 activity - mobilize patient ([place]) VTE Prophylaxis: VTE prophylaxis appropriate SIGNATURE: Anthony Barrow MD PATIENT NAME: Aislinn Wheeler DATE: September 01, 2023 TIME: 11:36 [facility]01-11-2024 History of Past illness Narrative* Problem Noted Date Diagnosed Date Resolved Date Fever 08/31/2023 09/04/2023 Urinary tract infection without hematuria 08/31/2023 09/04/2023 Acute cystitis without hematuria 01/18/2021 01/21/2021 Pyelonephritis 01/17/2021 01/21/2021 Sepsis 01/17/2021 01/21/2021 Hyponatremia 01/17/2021 01/21/2021 Hyperkalemia 01/17/2021 09/04/2023 ANATOLIY (acute kidney injury) 01/17/2021 Hydronephrosis due to obstruction of ureter 01/17/2021 01/21/2021 documented as of this encounter (statuses as of 09/27/2023) [facility]01-11-[facility] History of Past illness Narrative* Problem Noted Date Diagnosed Date Resolved Date Fever 08/31/2023 09/04/2023 Urinary tract infection without hematuria 08/31/2023 09/04/2023 Acute cystitis without hematuria 01/18/2021 01/21/2021 Pyelonephritis 01/17/2021 01/21/2021 Sepsis 01/17/2021 01/21/2021 Hyponatremia 01/17/2021 01/21/2021 Hyperkalemia 01/17/2021 09/04/2023 ANATOLIY (acute kidney injury) 01/17/2021 Hydronephrosis due to obstruction of ureter 01/17/2021 01/21/2021 documented as of this encounter (statuses as of 09/28/2023) [facility]01-11-[facility] History of Past illness Narrative* Problem Noted Date Diagnosed Date Resolved Date Fever 08/31/2023 09/04/2023 Urinary tract infection without hematuria 08/31/2023 09/04/2023 Acute cystitis without hematuria 01/18/2021 01/21/2021 Pyelonephritis 01/17/2021 01/21/2021 Sepsis 01/17/2021 01/21/2021 Hyponatremia 01/17/2021 01/21/2021 Hyperkalemia 01/17/2021 09/04/2023 ANATOLIY (acute kidney injury) 01/17/2021 Hydronephrosis due to obstruction of ureter 01/17/2021 01/21/2021 documented as of this encounter (statuses as of 09/28/2023) [facility]01-11-2024 NoteHNO ID: [id number] Author: TIN QUIÑONEZ LSW Service: Care Management Author Type: Tobacco Stripper Hand Type: Care Mgt Initial Assessment Filed: 08/31/2023 14:02 Note Text: CARE MANAGEMENT: ASSESSMENT AND DISCHARGE PLAN SERVICE DATE: August 31, 2023 SERVICE TIME: 1:42 PM PCP: Agusto Olmstead Primary Contact: Extended Emergency Contact Information Primary Emergency Contact: JOHN SEARSLE Mobile Relation: Grandchild Admission Status: Inpatient Insurance Provider: [facility] MED[facility] PPO Discharge Planning requested by: Per Department Practice Potential Transition Plans To Be Determined Advance Directives Current Advance Directive: None Road Design Draftsperson Attempted to Assist with AD Completion: Yes Action: Education Provided Current Living Arrangements and Support Lives with: Family members, Children Type of Residence: Private Residence (House) Support: Family members How do you manage to accomplish the following: Independent: Ambulation;Bathe/Shower;Dress;Meals/Meal Prep;Going to the bathroom;Medication Management;Transportation to appointments/community Current Services/Equipment Current Post-Acute Service(s): None Discharge Planning Patient Goal(s): General wellness Weed of Choice Explained: Weed of Choice Given: No Reason Not Given: [...] with pt at bedside. Pt lives in [facility] with her grandchildren (18, 17, and [...] 31, 2023 TIME: 1:42 PM CONTACT #: [id number] Evaluation note* Encounter Date Diagnosis Assessment Notes Treatment Notes Treatment Clinical Notes Jun, Vitamin B12 deficiency (ICD-10 - E53.8) NoFlo Other [id number] NoteHNO ID: [id number] Author: Lakisha Kaye Service: ? Author Type: ? Type: Plan of Care Filed: 06/26/2023 9:53 AM Note Text: PHARMACY BEDSIDE DELIVERY SERVICE Patient Name: Aislinn Wheeler The marked outpatient medications were Filled at: [place] and delivered to the patient's bedside to [facility] Medication List START taking these medications [...] your Primary Care Provider. Lakisha Kaye PAGER: [phone] June 26, 2023 9:52 [facility]11-03-2023 Miscellaneous Notes* Telephone Encounter - Heidy Garcia RN - 06/23/2023 9:03 AM EDT Patient had left robotic partial nephrectomy by Dr. Ballard on 06/22/2023 Will call for surgical follow up once discharged documented in this encounterTuscarawas Hospital11-03-2023 NoteHNO ID: [id number] Author: Taurus Ballard MD Service: Urology Author Type: Physician Type: Progress Notes Filed: 06/23/2023 1:37 PM Note Text: [facility] [place] UROLOGY PROGRESS NOTE Name: Aislinn Wheeler Bed: [id number] Date: June 23, 2023 After Hours [facility] Urology Service Pager: [phone] ASSESSMENT AND PLAN Aislinn Wheeler is a [...] Jeet De La Fuente MD Urology Resident [facility] Urological [facility] Kidney [place] Pager [phone] SUBJECTIVE -c/o pain, had a BM, no [...] kg/m?. Input and Output Date 06/22/23699 - 06/23/2365806/23/23699 - 06/24/23 06 Shift 1215-0126 8943-1477 8026-9023 24 Hour Total 6282-3285 2466-4208 0619-9454 24 Hour Total INTAKE IV 1600 1600 Volume (mL) (lactated ringers iv infusion) 1000 1000 Volume (mL) (lactated ringers iv infusion) 600 600 Shift Total 1600 1600 OUTPUT Urine 300 841 736 2795 OR Urine Output 300 300 Output ( Indwelling Urinary Catheter 06/22/23 1130 Valerio 16 Fr) 867 208 7728 Tubes 20 40 60 Drain/Tube Output (Drain/Tube 06/22/23 1333 Lex Vega Right Lower Quadrant Abdomen Drain #1) 20 40 60 # of BMs Number of BMs 1 x 1 x Blood 50 50 Estimated Blood loss 50 50 Shift Total 350 877 419 9924 Weight (kg) 59 59 59 59 59 [...] We will call with pathology. Taurus Ballard MDArbour-Hri [id number] NoteHNO ID: [id number] Author: Linda Nicholson RN Service: Nursing Author Type: Registered Nurse Type: Nursing Progress Note Filed: 06/22/2023 2:15 PM Note Text: surgical dressing: surgical glue, [facility]11-02-2023 NoteHNO ID: [id number] Author: Lola Be APRN.FISHING GUIDE Service: ? 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 Will try again. documented in this encounterTuscarawas Hospital10-19-2023 Evaluation note* Encounter Date Diagnosis Assessment [...] (ICD-10 - Z68.25) May, Other see above NoFlo Other 10-02-2023 Note [id number]#1.00CD:127[facility] 05-22-2023 NoteCystoscopy with Botox injection [...] if you have a fever over 100 degrees.[facility] 05-22-2023 Hospital Discharge instructions Patient [...] Up Care 05/03/2023 10:48:47 With:Lisa Olvera Address: [address] [place] [address] [phone] Business (1) [facility] Juancarlos Leger [address] [address] [phone] Business (1) When: Unknown Comments:Office to schedule follow up in 1 month with [facility]09-28-2023 Evaluation note* Encounter Date Diagnosis [...] 24.0-24.9, adult (ICD-10 - Z68.24) see above NoFlo Other 09-28-2023 Miscellaneous Notes* Telephone Encounter - Agusto Faulkner - 05/18/2023 12:57 PM EDT Consult notes sent back to Dr. Lisa Olvera , phone [phone]. From Dr. aBllard office. documented in this encounterTuscarawas Hospital09-27-2023 NoteHNO ID: [id number] Author: Taurus Ballard MD Service: ? Author Type: Physician Type: Progress Notes Filed: 05/17/2023 1:35 PM Note Text: [facility] FOLLOW-UP PATIENT HISTORY AND [...] 1.92 01/19/[address] [facility] IMPRESSION: Since the prior CT scan [...] threatening or minor complicatio (more content not included)...[facility] [id number] Hospital Discharge instructions Patient Education 02/22/2023 09:35:15 [...] provider. Document Revised: 12/16/2021 Document Reviewed: 12/16/2021 [employer] Patient Education 2022 atokore. Follow Up Care 09/13/2022 14:59:43 With:Vern TAVERAS, EMELINA Hernandez, URO Address: When:Within 2 Month(s) Comments:w/ RIVAS [facility] 05-09-2023 Evaluation note* Encounter Date Diagnosis [...] N28.1) Patient follows with urology clinic in [facility] for enlarging left renal cyst. December, [...] her blood pressure persistently more than 150/90. NoFlo Other 02-01-2023 Hospital Discharge instructions Patient Education [...] 07/24/2013 Document Revised: 03/27/2019 Document Reviewed: 03/27/2019 [employer] Patient Education 2020 atokore. Follow Up Care 09/14/2022 14:44:34 With:Vern TAVERAS, EMELINA Hernandez, URO Address: When: Unknown [facility] 01-24-2023 Hospital Discharge instructions Patient [...] fried and sweet foods. General instructions Take qrmh-gnb-jsvtswc and prescription medicines only as told by [...] 06/03/2010 Document Revised: 11/28/2019 Document Reviewed: 08/23/2018 [employer] Patient Education 2020 atokore. Follow Up Care 08/24/2022 11:21:49 With:HEIDY ARNOLD PA-C, URL Address: [address] [place] [address] When: Unknown [facility] 06-09-2021 Miscellaneous Notes* Telephone Encounter - Barbara Talbot - 01/27/2021 10:30 AM EDT Scheduled 02/15 * Telephone Encounter - Barb Silva MD - 01/27/2021 9:40 AM EDT Please schedule hospital follow up with Guy Overton Deitzer, or Sasha. Virtual ok documented in this encounterTuscarawas Hospital06-03-2021 NoteHNO ID: [id number] Author: Griselda Diaz ([place]) Service: ? Author Type: ? Type: Plan [...] Generic drug: insulin detemir U-100 Griselda Diaz (National Insurance Officer) PAGER: paris January 21, 2021 4:27 [facility]Rwqrvxkl06-32-3638 NoteHNO ID: [id number] Author: ELIZABETH Kothari Service: Care Management Author Type: Tobacco Stripper Hand Type: Care Mgt Progress Note Filed: 01/21/2021 1:39 PM Note Text: CARE MANAGEMENT DISCHARGE NOTE SERVICE DATE: 01/21/2021 SERVICE TIME: 1300 LOS: 4 days Admission Date: 01/17/2021 DISCHARGE ARRANGEMENT (list agency and phone number) Discharge Arrangement: Home;Home Mcfp Care: Nursing;PT;OT [facility] ASSESSMENT: Maira Davila to transport home [phone] HANDOFF COMMUNICATION: Handoff to: Other Caregiver;Primary Care Physician Primary Care Physician Name/Phone: Madeline Jordan PA-C Other Caregiver Name/Phone: [facility] TRANSPORTATION ARRANGEMENTS: Transportation Arrangements: Car (Family to transport) ADDITIONAL CONTACT RESOURCES: Nidhi [facility] not able to accept. Weed of choice provided and sent to first available to accept to her service area. [facility] willing to accept. Pt concerned she does not have [facility] to cover services. I spoke with amira who plans on paying for services out of pocket until pt's insurance becomes active February 18, 2021 Discharge Information Row Name ED to Hosp-Admission (Current) from 01/17/[address] [facility] Fax# Care to start after your appointment with internal medicine on 01/25/2021 for additional orders. The agency will be contacting you to set this up [facility] Walker was delivered to hospital room prior to discharge [facility] willing to accept pending pt has her initial appointment with internal medicine on 01/25/2021. Both pt and grdtr Lola were advised. Dr Hansen also provided script for outpt therapy should home care fall through or cost too high for grdtr to cover. Lola to call [facility] to discuss further. Walker was delivered to room and prescription was sent to [facility]. Davila to hot die picker. No other homegoing needs. SIGNATURE: ELIZABETH Kothari PATIENT NAME: Aislinn Wheeler DATE: January 21, 2021 TIME: 1:32 PM PAGER/CONTACT #: [phone] NoteHNO ID: [id number] Author: Derik Daniel Service: Care Management Author Type: [facility] [employer] Type: Care Mgt Progress Note Filed: 01/21/2021 11:24 AM Note Text: CARE MANAGEMENT PROGRESS NOTE SERVICE DATE: 01/21/2021 SERVICE TIME: 950 LOS: 4 days IMM Follow Up Copy Given: Yes Copy given to:: Patient Method: In Person SIGNATURE: Derik Danile PATIENT NAME: Aislinn Wheeler DATE: January 21, 2021 TIME: 11:23 AM PAGER/CONTACT #: [phone] NoteHNO ID: [id number] Author: Ailyn Salas RN Service: Care Management Author Type: Registered Nurse Type: Care Mgt Progress Note Filed: 01/20/2021 3:29 PM Note Text: CARE MANAGEMENT PROGRESS NOTE SERVICE DATE: 01/20/2021 SERVICE TIME: 3:09 PM LOS: 3 days Weed of Choice Given: Yes Level of Care Discussed: Home Care Financial Disclosure Provided: No Financial Disclosure Comments: [facility] does not service area Provider List: [...] sent. Patient does not have a PCP. [facility] Care can provide a visiting provider [...] 20, 2021 TIME: 3:09 PM PAGER/CONTACT #: [phone] NoteHNO ID: [id number] Author: Inna Hansen DO Service: Hospital Medicine Author Type: Physician Type: Progress Notes Filed: 01/20/2021 12:37 PM Note Text: DEPARTMENT OF HOSPITAL MEDICINE PROGRESS NOTE SERVICE DATE: 01/20/2021 SERVICE TIME: 10:37 AM Hospital Medicine/Primary Attending: Inna Hansen DO NIGHT AND WEEKEND COVERAGE: READING COVERAGE: Days: [phone], please contact via Intact MedicalsaTrue Office Nights: [phone], please page CC Hospitalist Night coverage pager [phone] Subjective INTERVAL HPI: nausea and vomiting this [...] Non-Pharmacologic VTE Prophylaxis/Anticoagulants 01/17/212214 pneumatic compression stockings ([place]) 01/17/212214 activity - mobilize patient ([place]) VTE Prophylaxis: VTE prophylaxis appropriate Disposition: D Inna DO Tyrone January 20, 2021 10:39 [facility] [id number] NoteHNO ID: [id number] Author: Benjamin Bernal MD Service: Urology Author [...] Wendy Bernal MD January 19, 2021 4:12 [id number] NoteHNO ID: [id number] Author: Shelby Lucero PharmD Service: Pharmacy Author Type: Pharmacist Type: Plan of Care Filed: 01/19/2021 11:02 AM Note Text: PHARMACY MEDICATION REVIEW Patient Name: Aislinn Wheeler : 1960 The following medications were updated within the BANK ANALYST medication list: Medications ADDED to BANK ANALYST medication list ? Albuterol HFA (replaced nebs) ? Levemir (replaced Lantus) Medications CHANGED on BANK ANALYST medication list ? Lyrica (added instructions) ? Symbicort (added instructions) Medications REMOVED from BANK ANALYST medication list ? Diltiazem ? Cymbalta ? [...] nothing too big . Call placed to [facility] pharmacy to clarify prescribed dose of insulin, and the only prescription for insulin [facility] has on file is for Relion 70/30 inject 25 units BID. [facility] pharmacist states this was prescribed 02/19/2020 but never picked up. The below information represents the best possible medication history: Yes Medication history completed by: Pharmacist: Shelby Lucero PharmD Source of history: Patient: Reliability of source: Appears reliable, clearly identified: Medication name and Pharmacy records: [employer], [facility] pharmacy (phone call) Medication nonadherence identified: Unable to assess - it is clear the patient is noncompliant with her medications (admits she has been off her meds, no insulin fills at [facility] despite patient report), but at this time unable to assess reason for nonadherence. Reconciliation completed: Yes All BANK ANALYST medications addressed by LIP and Medication reconciliation completed by: Shelby Lucero PharmD Medications with dose or frequency intentionally adjusted at admission: ? [place] modified to 5/325 mg q6h PRN New medications at admission: ? Ceftriaxone Note patient ordered insulin regimen (Lantus 15 units QHS + sliding scale Humalog) and based on blood glucose readings, this is appropriate Patient interested in Bedside Delivery Services or using [facility] OP Pharmacy at discharge? Unable to assess Preferred outpatient pharmacy: [facility] [place] [address] [address] - [phone] Allergies: Latex Rash Comment:Added based on information [...] as instructed twice daily. Shelby Lucero, PharmD 01/19/2021voPer[facility] [id number] NoteHNO ID: [id number] Author: Inna Hansen DO Service: Hospital Medicine Author Type: Physician Type: Progress Notes Filed: 01/19/2021 2:24 PM Note Text: DEPARTMENT OF HOSPITAL MEDICINE PROGRESS NOTE SERVICE DATE: 01/19/2021 SERVICE TIME: 9:30 AM Hospital Medicine/Primary Attending: Inna Hansen DO NIGHT AND WEEKEND COVERAGE: DELMY COVERAGE: : [phone], please contact via Intact Medicalsage Nights: [phone], please page CC Hospitalist Night coverage pager [phone] Subjective INTERVAL HPI: no overnight events. Denies [...] POA: Yes Principal Problem: Sepsis ([facility]) Pyelonephritis Complicated UTI Hydronephrosis due [...] Non-Pharmacologic VTE Prophylaxis/Anticoagulants 01/17/212214 pneumatic compression stockings ([place]) 01/17/212214 activity - mobilize patient ([place]) VTE Prophylaxis: VTE prophylaxis appropriate Disposition: Home Discussed with granddaughter Lola by phone with patient's permission. Inna Hansen DO January 19, 2021 9:33 [facility] [id number] History of Past illness Narrative* Problem Noted Date Resolved Date Acute cystitis without hematuria 01/18/2021 01/21/2021 Pyelonephritis 01/17/2021 01/21/2021 Sepsis 01/17/2021 01/21/2021 Hyponatremia 01/17/2021 01/21/2021 Hyperkalemia 01/17/2021 01/21/2021 Hydronephrosis due to obstruction of ureter 12/2101/21/2021 documented as of this encounter (statuses as of 01/27/2021) [facility] History of Past illness Narrative* Problem Noted Date Diagnosed Date Resolved Date Acute cystitis without hematuria 01/18/2021 01/21/2021 Pyelonephritis 01/17/2021 01/21/2021 Sepsis 01/17/2021 01/21/2021 Hyponatremia 01/17/2021 01/21/2021 Hyperkalemia 01/17/2021 01/21/2021 Hydronephrosis due to obstruction of ureter 01/17/2021 01/21/2021 documented as of this encounter (statuses as of 06/09/2023) [facility] History of Past illness Narrative* Problem Noted Date Diagnosed Date Resolved Date Acute cystitis without hematuria 01/18/2021 01/21/2021 Pyelonephritis 01/17/2021 01/21/2021 Sepsis 01/17/2021 01/21/2021 Hyponatremia 01/17/2021 01/21/2021 Hyperkalemia 01/17/2021 01/21/2021 Hydronephrosis due to obstruction of ureter 01/17/2021 01/21/2021 documented as of this encounter (statuses as of 06/15/2023) [facility] History of Past illness Narrative* Problem Noted Date Diagnosed Date Resolved Date Acute cystitis without hematuria 01/18/2021 01/21/2021 Pyelonephritis 01/17/2021 01/21/2021 Sepsis 01/17/2021 01/21/2021 Hyponatremia 01/17/2021 01/21/2021 Hyperkalemia 01/17/2021 01/21/2021 Hydronephrosis due to obstruction of ureter 01/17/2021 01/21/2021 documented as of this encounter (statuses as of 06/19/2023) [facility] History of Past illness Narrative* Problem Noted Date Diagnosed Date Resolved Date Acute cystitis without hematuria 01/18/2021 01/21/2021 Pyelonephritis 01/17/2021 01/21/2021 Sepsis 01/17/2021 01/21/2021 Hyponatremia 01/17/2021 01/21/2021 Hyperkalemia 01/17/2021 01/21/2021 Hydronephrosis due to obstruction of ureter 01/17/2021 01/21/2021 documented as of this encounter (statuses as of 06/23/2023) [facility] History of Past illness Narrative* Problem Noted Date Diagnosed Date Resolved Date Acute cystitis without hematuria 01/18/2021 01/21/2021 Pyelonephritis 01/17/2021 01/21/2021 Sepsis 01/17/2021 01/21/2021 Hyponatremia 01/17/2021 01/21/2021 Hyperkalemia 01/17/2021 01/21/2021 Hydronephrosis due to obstruction of ureter 01/17/2021 01/21/2021 documented as of this encounter (statuses as of 07/05/2023) [facility] NoteHNO ID: [id number] Author: Inna Hansen DO Service: Hospital Medicine Author Type: Physician Type: Progress Notes Filed: 01/18/2021 4:10 PM Note Text: DEPARTMENT OF HOSPITAL MEDICINE PROGRESS NOTE SERVICE DATE: 01/18/2021 SERVICE TIME: 8:57 AM Hospital Medicine/Primary Attending: Inna Hansen DO NIGHT AND WEEKEND COVERAGE: DELMY COVERAGE: Days: [phone], please contact via Xunlei SecureShareGrovesage Nights: [phone], please page CC Hospitalist Night coverage pager [phone] Subjective INTERVAL HPI: no overnight events. Denies [...] Most recent imaging Assessment/Plan Problem List Sepsis ([facility]) POA: Yes Pyelonephritis POA: Yes Hydronephrosis due to obstruction of ureter POA: Yes Acute cystitis without hematuria POA: Unknown Acute bilateral obstructive uropathy POA: Yes Hyponatremia POA: Yes ANATOLIY (acute kidney injury) ([facility]) POA: Yes Hyperkalemia POA: Yes Principal Problem: Sepsis ([facility]) Pyelonephritis Complicated UTI Hydronephrosis due [...] Non-Pharmacologic VTE Prophylaxis/Anticoagulants 01/17/212214 pneumatic compression stockings ([place]) 01/17/212214 activity - mobilize patient ([place]) VTE Prophylaxis: VTE prophylaxis appropriate Disposition: Home SIGNATURE: Inna Hansen DO PATIENT NAME: Aislinn Wheeler DATE: January 18, 2021 TIME: 8:57 [facility] [id number] NoteHNO ID: [id number] Author: Taurus Ballard MD Service: Urology Author [...] cause of her urinary retention. Taurus Ballard, [facility]Oexdnoxj[facility]-2664 NoteHNO ID: [id number] Author: RT Dayanara(R) Service: Radiology Author Type: Band Master Type: Progress Notes Filed: 01/17/2021 8:04 PM [...] BY: RT Dayanara(R) January 17, 2021 8:03 [id number] NoteHNO ID: [id number] Author: RT Dayanara(R) Service: Radiology Author Type: Band Master Type: Progress Notes Filed: 01/17/2021 5:30 PM [...] Antoinette Dailey RT(R) January 17, 2021 5:30 [facility] [id number] NoteHNO ID: [id number] Author: Guy Rogers RT(R) Service: Radiology Author Type: Band Master Type: Progress Notes Filed: 01/17/2021 4:23 PM [...] Lila KNOX (R) January 17, 2021 4:22 [facility] [id number] NoteHNO ID: [id number] Author: Wendy Rainey, CT Service: ? Author Type: Clinical Band Master Type: Progress Notes Filed: 01/17/2021 4:19 PM [...] PM Scheduled Provider:HEIDY ARNOLD PA-C Location:[facility] Appointment Type:URO Office Visit [facility] evaluation + Plan note Future Appointments Appointment Date:10/26/2022 10:00:00 AM Scheduled Provider:Lisa Olvera MD Location:[facility] Appointment Type:URO Office Visit Appointment Date:12/13/2022 03:00:00 PM Scheduled Provider:HEIDY ARNOLD PA-C Location:[facility] Appointment Type:URO Office Visit [facility] evaluation + Plan note Future Appointments Appointment Date:05/03/2023 10:00:00 AM Scheduled Provider:Lisa Olvera MD Location:[facility] Appointment Type:URO Office Visit [facility] evaluation + Plan note Future Appointments Appointment Date:05/03/2023 10:00:00 AM Scheduled Provider:Lisa Olvera MD Location:[facility] Appointment Type:URO Office Visit Diagnostic Tests Pending * [facility]rine [facility] Future Appointments Appointment Date:05/15/2023 12:30:00 PM Scheduled Provider: Location:[facility] Appointment Type:Urology CALL PAT FT Appointment Date:05/22/2023 10:30:00 AM Scheduled Provider: Location:[facility] Appointment Type:Urology FT Diagnostic Tests Pending * Urine Culture [facility] Future Appointments Appointment Date:06/28/2023 10:45:00 AM Scheduled Provider:Lisa Olvera MD Location:[facility] Appointment Type:URO [facility] Future Appointments Appointment Date:06/28/2023 10:45:00 AM Scheduled Provider:Lisa Olvera MD Location:[facility] Appointment Type:URO Office Visit Diagnostic Tests Pending * Urine Culture 06[facility]08[facility]23 [facility] Future Appointments Appointment Date:07/18/2023 11:20:00 AM Scheduled Provider:EHIDY ARNOLD PA-C Location:[facility] Appointment Type:URO Office Visit [facility] evaluation + Plan note Future Appointments Appointment Date:10/10/2023 11:40:00 AM Scheduled Provider:HEIDY ARNOLD PA-C Location:[facility] Appointment Type:URO Office Visit [facility] evaluation noteNo InformationSouth Lake [place] [employer] Other Evaluetrxi note* Diagnosis Kidney cyst, acquired- Primary Acquired cyst of kidney [facility] noteNo assessment information [facility] Work Phone: evaluation note* Diagnosis Other hydronephrosis- Primary Screening for genitourinary condition Screening for other and unspecified genitourinary condition documented [facility]* Diagnosis Retention of urine- Primary Retention of urine, unspecified Screening for genitourinary condition Screening for other and unspecified genitourinary condition Type 2 diabetes mellitus with hyperglycemia, with long-term current use of insulin ([facility]) BURKE (stress urinary incontinence, female) Female stress incontinence [facility]* Diagnosis Lung nodule- Primary Solitary pulmonary nodule documented in this encounter [facility] note* Diagnosis Stress incontinence- Primary Female stress incontinence Dysfunctional voiding of urine Unspecified disorder of urethra and urinary tract documented in this encounter [facility] note* Diagnosis Preop examination- Primary Preoperative [...] Female stress incontinence [facility]* Diagnosis Preop examination- [...] long-term current use of insulin ([facility]) Other hydronephrosis [facility]* Diagnosis Preop examination- [...] long-term current use of insulin ([facility]) Stage 3b chronic kidney disease (HCC)- Primary Retention of urine Retention of urine, unspecified Type 2 diabetes mellitus with hyperglycemia, with long-term current use of insulin ([facility]) Other hydronephrosis BURKE (stress urinary incontinence, female) Female stress incontinence Bladder compliance low Low bladder compliance [facility] Diagnosis Preop examination- Primary Preoperative [...] long-term current use of insulin ([facility]) Screening for genitourinary condition Screening for other and unspecified genitourinary condition [facility]* Diagnosis Onset Date Resolution Status Anemia of renal disease acut e B12 deficiency acute CKD stage 3b, GFR 30-44 ml/min acute 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 acute Hyperkalemia acute Hyperparathyroidism acute Hypertensive nephropathy acu te Renal cyst acute [facility] Work Phone: Evaluation note* Diagnosis Encounter for subsequent annual wellness visit (AWV) in Medicare patient- Primary Age related osteoporosis, unspecified pathological fracture presence ([facility]) Stage 3 chronic kidney disease, unspecified whether stage 3a or 3b CKD (HCC) ([facility]) Primary hypertension ([facility]) Unspecified essential hypertension Type 2 diabetes mellitus with hyperglycemia, with long-term current use of insulin ([facility]) Vitamin D deficiency Type 2 diabetes mellitus with diabetic neuropathy, unspecified whether detention insulin use ([facility]) Type 2 diabetes mellitus with foot ulcer, with long-term current use of insulin ([facility]) Stage 3a chronic kidney disease (HCC) ([facility]) Neurogenic bladder Neurogenic bladder, NOS Visual impairment Unspecified visual loss Herpes simplex vulvovaginitis- Primary Primary hypertension ([facility]/H[facility])- Primary Unspecified essential hypertension Type 2 diabetes mellitus with hyperglycemia, with long-term current use of insulin ([facility]) Stage 3 chronic kidney disease, unspecified whether stage 3a or 3b CKD (HCC) ([facility]) Stage 3a chronic kidney disease (HCC) ([facility]) Urinary incontinence without sensory awareness Incontinence without sensory awareness Continuous leakage of urine Continuous leakage Primary hypertension ([facility])- Primary Unspecified essential hypertension Acute cystitis without hematuria Type 2 diabetes mellitus with diabetic neuropathy, unspecified whether oil heaterman insulin use ([facility]) UTI symptoms Stage 3a chronic kidney disease (HCC) ([facility]) Neurogenic bladder Neurogenic bladder, NOS Type 2 diabetes mellitus with hyperglycemia, with long-term current use of insulin ([facility]) Essential (primary) hypertension ([facility]) Unspecified essential hypertension Chronic cough- Primary Cough Type 2 diabetes mellitus with diabetic chronic kidney disease ([facility]) Chronic kidney disease, stage 3b (HCC) ([facility]) Hyperparathyroidism, unspecified ([facility]) Hyperparathyroidism, unspecified Rheumatoid arthritis, unspecified ([facility]) Malignant neoplasm of cervix uteri, unspecified ([facility]) Type 2 diabetes mellitus with hyperglycemia, with long-term current use of insulin ([facility]) Type 2 diabetes mellitus with hyperglycemia, with long-term current use of insulin ([facility])- Primary Type 2 diabetes mellitus with diabetic chronic kidney disease ([facility]) Chronic kidney disease, stage 3b (HCC) ([facility]) Hyperparathyroidism, unspecified ([facility]) Hyperparathyroidism, unspecified Malignant neoplasm of cervix uteri, unspecified ([facility]) Rheumatoid arthritis, unspecified ([facility]) Essential (primary) hypertension ([facility]) Unspecified essential hypertension 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 Iron deficiency anemia, unspecified iron deficiency anemia type Primary hypertension ([facility]) Unspecified essential hypertension Type 2 diabetes mellitus with diabetic neuropathy, unspecified whether oil heaterman insulin use ([facility]) RSD (reflex sympathetic dystrophy) Unspecified reflex sympathetic dystrophy Continuous leakage of urine Continuous leakage 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, left, sequela ([facility]) Skin lesion of face Unspecified disorder of skin and subcutaneous tissue documented in this encounter [facility]* Diagnosis Chronic cough- Primary Cough Type 2 diabetes mellitus with diabetic chronic kidney disease (HCC) ([facility]) Chronic kidney disease, stage 3b (HCC) ([facility]) Hyperparathyroidism, unspecified ([facility]) Hyperparathyroidism, unspecified Rheumatoid arthritis, unspecified ([facility]) Malignant neoplasm of cervix uteri, unspecified ([facility]) Type 2 diabetes mellitus with hyperglycemia, with long-term current use of insulin ([facility]) documented in this encounter [facility] Healthcare[facility] note* Diagnosis Chronic cough- Primary Cough documented in this encounter [facility]* Diagnosis Nausea and vomiting, unspecified vomiting type- Primary documented in this encounter [facility] HealthcareEvaluation note* Diagnosis Reflex sympathetic dystrophy of right upper extremity documented in this encounter [facility] SystemEvaluation note* Diagnosis Encounter for subsequent annual wellness visit (AWV) in Medicare patient- Primary Age related osteoporosis, unspecified pathological fracture presence ([facility]) Stage 3 chronic kidney disease, unspecified whether stage 3a or 3b CKD (HCC) ([facility]) Primary hypertension ([facility]) Unspecified essential hypertension Type 2 diabetes mellitus with hyperglycemia, with long-term current use of insulin ([facility]) Vitamin D deficiency Type 2 diabetes mellitus with diabetic neuropathy, unspecified whether oil heaterman insulin use ([facility]) Type 2 diabetes mellitus with foot ulcer, with long-term current use of insulin ([facility]) Stage 3a chronic kidney disease (HCC) ([facility]) Neurogenic bladder Neurogenic bladder, NOS Visual impairment Unspecified visual loss Herpes simplex vulvovaginitis- Primary Primary hypertension ([facility])- Primary Unspecified essential hypertension Type 2 diabetes mellitus with hyperglycemia, with long-term current use of insulin ([facility]) Stage 3 chronic kidney disease, unspecified whether stage 3a or 3b CKD (HCC) ([facility]) Stage 3a chronic kidney disease (HCC) ([facility]) Urinary incontinence without sensory awareness Incontinence without sensory awareness Continuous leakage of urine Continuous leakage Primary hypertension ([facility])- Primary Unspecified essential hypertension Acute cystitis without hematuria Type 2 diabetes mellitus with diabetic neuropathy, unspecified whether oil heaterman insulin use ([facility]) UTI symptoms Stage 3a chronic kidney disease (HCC) ([facility]) Neurogenic bladder Neurogenic bladder, NOS Type 2 diabetes mellitus with hyperglycemia, with long-term current use of insulin ([facility]) Essential (primary) hypertension ([facility]) Unspecified essential hypertension Chronic cough- Primary Cough Type 2 diabetes mellitus with diabetic chronic kidney disease ([facility]) Chronic kidney disease, stage 3b (HCC) ([facility]) Hyperparathyroidism, unspecified ([facility]) Hyperparathyroidism, unspecified Rheumatoid arthritis, unspecified ([facility]) Malignant neoplasm of cervix uteri, unspecified ([facility]) Type 2 diabetes mellitus with hyperglycemia, with long-term current use of insulin ([facility]) Type 2 diabetes mellitus with hyperglycemia, with long-term current use of insulin ([facility])- Primary Type 2 diabetes mellitus with diabetic chronic kidney disease ([facility]) Chronic kidney disease, stage 3b (HCC) ([facility]) Hyperparathyroidism, unspecified ([facility]) Hyperparathyroidism, unspecified Malignant neoplasm of cervix uteri, unspecified ([facility]) Rheumatoid arthritis, unspecified ([facility]) Essential (primary) hypertension ([facility]) Unspecified essential hypertension 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 Iron deficiency anemia, unspecified iron deficiency anemia type Primary hypertension ([facility]) Unspecified essential hypertension Type 2 diabetes mellitus with diabetic neuropathy, unspecified whether oil heaterman insulin use ([facility]) RSD (reflex sympathetic dystrophy) Unspecified reflex sympathetic dystrophy Continuous leakage of urine Continuous leakage 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, left, sequela ([facility]) Skin lesion of face Unspecified disorder of skin and subcutaneous tissue Essential (primary) hypertension ([facility]/H[facility])- Primary Unspecified essential hypertension Type 2 diabetes mellitus with diabetic neuropathy, unspecified whether oil heaterman insulin use ([facility]) Chronic kidney disease, stage 4 (severe) ([facility]) Neurogenic bladder Neurogenic bladder, NOS Type 2 diabetes mellitus with hyperglycemia, with long-term current use of insulin ([facility]/HCC) Other chest pain Continuous leakage of urine Continuous leakage documented in this encounter [facility] HealthcareEvaluation note* Diagnosis Onset Date Resolution Status Admit Date Anemia of renal disease acute J anuary 2024 11:12am B12 deficiency acute September 042024 11:12am CKD stage 3b, GFR 30-44 ml/min acute September 04, 2024 11:12am 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 acute [facility] 2024 11:12am Hyperkalemia acute August 11:12am Hyperparathyroidism acute 2024 11:12am Hypertensive nephropathy acute September 04, 2024 11:12am Hypomagnesemia acute September 042024 11:12am Iron deficiency anemia acute [facility] 2024 11:12am Neurogenic bladder acute 2024 11:12am Renal cyst acute September 04, 2024 11:12am Vitamin D toxicity acute 2024 11:12am [facility] Work Phone: Evaluation note* Diagnosis Encounter for subsequent annual wellness visit (AWV) in Medicare patient- Primary Age related osteoporosis, unspecified pathological fracture presence ([facility]) Stage 3 chronic kidney disease, unspecified whether stage 3a or 3b CKD (HCC) ([facility]) Primary hypertension ([facility]) Unspecified essential hypertension Type 2 diabetes mellitus with hyperglycemia, with long-term current use of insulin ([facility]) Vitamin D deficiency Type 2 diabetes mellitus with diabetic neuropathy, unspecified whether detention insulin use ([facility]) Type 2 diabetes mellitus with foot ulcer, with long-term current use of insulin ([facility]) Stage 3a chronic kidney disease (HCC) ([facility]) Neurogenic bladder Neurogenic bladder, NOS Visual impairment Unspecified visual loss Herpes simplex vulvovaginitis- Primary Primary hypertension ([facility])- Primary Unspecified essential hypertension Type 2 diabetes mellitus with hyperglycemia, with long-term current use of insulin ([facility]) Stage 3 chronic kidney disease, unspecified whether stage 3a or 3b CKD (HCC) ([facility]) Stage 3a chronic kidney disease (HCC) ([facility]) Urinary incontinence without sensory awareness Incontinence without sensory awareness Continuous leakage of urine Continuous leakage Primary hypertension ([facility])- Primary Unspecified essential hypertension Acute cystitis without hematuria Type 2 diabetes mellitus with diabetic neuropathy, unspecified whether detention insulin use ([facility]) UTI symptoms Stage 3a chronic kidney disease (HCC) ([facility]) Neurogenic bladder Neurogenic bladder, NOS Type 2 diabetes mellitus with hyperglycemia, with long-term current use of insulin ([facility]) Essential (primary) hypertension ([facility]) Unspecified essential hypertension Chronic cough- Primary Cough Type 2 diabetes mellitus with diabetic chronic kidney disease ([facility]) Chronic kidney disease, stage 3b (HCC) ([facility]) Hyperparathyroidism, unspecified ([facility]) Hyperparathyroidism, unspecified Rheumatoid arthritis, unspecified ([facility]) Malignant neoplasm of cervix uteri, unspecified ([facility]) Type 2 diabetes mellitus with hyperglycemia, with long-term current use of insulin ([facility]) Type 2 diabetes mellitus with hyperglycemia, with long-term current use of insulin ([facility])- Primary Type 2 diabetes mellitus with diabetic chronic kidney disease ([facility]) Chronic kidney disease, stage 3b (HCC) ([facility]) Hyperparathyroidism, unspecified ([facility]) Hyperparathyroidism, unspecified Malignant neoplasm of cervix uteri, unspecified ([facility]) Rheumatoid arthritis, unspecified ([facility]) Essential (primary) hypertension ([facility]) Unspecified essential hypertension 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 Iron deficiency anemia, unspecified iron deficiency anemia type Primary hypertension ([facility]) Unspecified essential hypertension Type 2 diabetes mellitus with diabetic neuropathy, unspecified whether oil heaterman insulin use ([facility]) RSD (reflex sympathetic dystrophy) Unspecified reflex sympathetic dystrophy Continuous leakage of urine Continuous leakage 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, left, sequela ([facility]) Skin lesion of face Unspecified disorder of skin and subcutaneous tissue Essential (primary) hypertension ([facility])- Primary Unspecified essential hypertension Type 2 diabetes mellitus with diabetic neuropathy, unspecified whether oil heaterman insulin use ([facility]) Chronic kidney disease, stage 4 (severe) ([facility]) Neurogenic bladder Neurogenic bladder, NOS Type 2 diabetes mellitus with hyperglycemia, with long-term current use of insulin ([facility]) Other chest pain Continuous leakage of urine Continuous leakage Type 2 diabetes mellitus with diabetic neuropathy, with long-term current use of insulin ([facility])- Primary Malignant neoplasm of cervix uteri, unspecified ([facility]) Rheumatoid arthritis, unspecified ([facility]) Essential (primary) hypertension ([facility]) Unspecified essential hypertension Chronic kidney disease, stage 4 (severe) ([facility]) Neurogenic bladder Neurogenic bladder, NOS Type 2 diabetes mellitus with hyperglycemia, with long-term current use of insulin ([facility]) Immunodeficiency due to conditions classified elsewhere ([facility]) USP (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 ([facility]) documented in this encounter [facility] HealthcareEvaluation note* Diagnosis Complex regional pain syndrome type 1 of right upper extremity- Primary documented in this encounter [facility]Evaluation [facility]* Diagnosis Reflex sympathetic dystrophy of right upper extremity Complex regional pain syndrome type 1 of right upper extremity [facility]* Diagnosis Complex regional pain syndrome type 1 of right upper extremity Reflex sympathetic dystrophy of right upper extremity documented in this encounter [facility] SystemEvaluation note* Diagnosis Encounter for subsequent annual wellness visit (AWV) in Medicare patient- Primary Age related osteoporosis, unspecified pathological fracture presence ([facility]) Stage 3 chronic kidney disease, unspecified whether stage 3a or 3b CKD (HCC) ([facility]) Primary hypertension ([facility]) Unspecified essential hypertension Type 2 diabetes mellitus with hyperglycemia, with long-term current use of insulin ([facility]) Vitamin D deficiency Type 2 diabetes mellitus with diabetic neuropathy, unspecified whether detention insulin use ([facility]) Type 2 diabetes mellitus with foot ulcer, with long-term current use of insulin ([facility]) Stage 3a chronic kidney disease (HCC) ([facility]) Neurogenic bladder Neurogenic bladder, NOS Visual impairment Unspecified visual loss Herpes simplex vulvovaginitis- Primary Primary hypertension ([facility])- Primary Unspecified essential hypertension Type 2 diabetes mellitus with hyperglycemia, with long-term current use of insulin ([facility]) Stage 3 chronic kidney disease, unspecified whether stage 3a or 3b CKD (HCC) ([facility]) Stage 3a chronic kidney disease (HCC) ([facility]) Urinary incontinence without sensory awareness Incontinence without sensory awareness Continuous leakage of urine Continuous leakage Primary hypertension ([facility])- Primary Unspecified essential hypertension Acute cystitis without hematuria Type 2 diabetes mellitus with diabetic neuropathy, unspecified whether oil heaterman insulin use ([facility]) UTI symptoms Stage 3a chronic kidney disease (HCC) ([facility]) Neurogenic bladder Neurogenic bladder, NOS Type 2 diabetes mellitus with hyperglycemia, with long-term current use of insulin ([facility]) Essential (primary) hypertension ([facility]) Unspecified essential hypertension Chronic cough- Primary Cough Type 2 diabetes mellitus with diabetic chronic kidney disease ([facility]) Chronic kidney disease, stage 3b (HCC) ([facility]) Hyperparathyroidism, unspecified ([facility]) Hyperparathyroidism, unspecified Rheumatoid arthritis, unspecified ([facility]) Malignant neoplasm of cervix uteri, unspecified ([facility]) Type 2 diabetes mellitus with hyperglycemia, with long-term current use of insulin ([facility]) Type 2 diabetes mellitus with hyperglycemia, with long-term current use of insulin ([facility])- Primary Type 2 diabetes mellitus with diabetic chronic kidney disease ([facility]) Chronic kidney disease, stage 3b (HCC) ([facility]) Hyperparathyroidism, unspecified ([facility]) Hyperparathyroidism, unspecified Malignant neoplasm of cervix uteri, unspecified ([facility]) Rheumatoid arthritis, unspecified ([facility]) Essential (primary) hypertension ([facility]) Unspecified essential hypertension 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 Iron deficiency anemia, unspecified iron deficiency anemia type Primary hypertension ([facility]) Unspecified essential hypertension Type 2 diabetes mellitus with diabetic neuropathy, unspecified whether oil heaterman insulin use ([facility]) RSD (reflex sympathetic dystrophy) Unspecified reflex sympathetic dystrophy Continuous leakage of urine Continuous leakage 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, left, sequela ([facility]) Skin lesion of face Unspecified disorder of skin and subcutaneous tissue Essential (primary) hypertension ([facility])- Primary Unspecified essential hypertension Type 2 diabetes mellitus with diabetic neuropathy, unspecified whether oil heaterman insulin use ([facility]) Chronic kidney disease, stage 4 (severe) ([facility]) Neurogenic bladder Neurogenic bladder, NOS Type 2 diabetes mellitus with hyperglycemia, with long-term current use of insulin ([facility]) Other chest pain Continuous leakage of urine Continuous leakage Type 2 diabetes mellitus with diabetic neuropathy, with long-term current use of insulin ([facility])- Primary Malignant neoplasm of cervix uteri, unspecified ([facility]) Rheumatoid arthritis, unspecified ([facility]) Essential (primary) hypertension ([facility]) Unspecified essential hypertension Chronic kidney disease, stage 4 (severe) ([facility]) Neurogenic bladder Neurogenic bladder, NOS Type 2 diabetes mellitus with hyperglycemia, with long-term current use of insulin ([facility]) Immunodeficiency due to conditions classified elsewhere ([facility]) 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 ([facility]) Encounter for subsequent annual wellness visit (AWV) in Medicare patient- Primary Type 2 diabetes mellitus with diabetic neuropathy, with long-term current use of insulin ([facility]) Essential (primary) hypertension ([facility]) Unspecified essential hypertension Chronic kidney disease, stage 4 (severe) ([facility]) Type 2 diabetes mellitus with hyperglycemia, with long-term current use of insulin ([facility]) Mixed hyperlipidemia ([facility]) Mixed hyperlipidemia Non compliance w medication regimen Type 2 diabetes mellitus with hyperglycemia, with long-term current use of insulin ([facility])- Primary documented in this encounter [facility] HealthcareEvaluation note* Diagnosis Encounter for subsequent annual wellness visit (AWV) in Medicare patient- Primary Age related osteoporosis, unspecified pathological fracture presence ([facility]) Stage 3 chronic kidney disease, unspecified whether stage 3a or 3b CKD (HCC) ([facility]) Primary hypertension ([facility]) Unspecified essential hypertension Type 2 diabetes mellitus with hyperglycemia, with long-term current use of insulin ([facility]) Vitamin D deficiency Type 2 diabetes mellitus with diabetic neuropathy, unspecified whether detention insulin use ([facility]) Type 2 diabetes mellitus with foot ulcer, with long-term current use of insulin ([facility]) Stage 3a chronic kidney disease (HCC) ([facility]) Neurogenic bladder Neurogenic bladder, NOS Visual impairment Unspecified visual loss Herpes simplex vulvovaginitis- Primary Primary hypertension ([facility])- Primary Unspecified essential hypertension Type 2 diabetes mellitus with hyperglycemia, with long-term current use of insulin ([facility]) Stage 3 chronic kidney disease, unspecified whether stage 3a or 3b CKD (HCC) ([facility]) Stage 3a chronic kidney disease (HCC) ([facility]) Urinary incontinence without sensory awareness Incontinence without sensory awareness Continuous leakage of urine Continuous leakage Primary hypertension ([facility])- Primary Unspecified essential hypertension Acute cystitis without hematuria Type 2 diabetes mellitus with diabetic neuropathy, unspecified whether oil heaterman insulin use ([facility]) UTI symptoms Stage 3a chronic kidney disease (HCC) ([facility]) Neurogenic bladder Neurogenic bladder, NOS Type 2 diabetes mellitus with hyperglycemia, with long-term current use of insulin ([facility] [facility] Essential (primary) hypertension ([facility]) Unspecified essential hypertension Chronic cough- Primary Cough Type 2 diabetes mellitus with diabetic chronic kidney disease ([facility]) Chronic kidney disease, stage 3b (HCC) ([facility]) Hyperparathyroidism, unspecified ([facility]) Hyperparathyroidism, unspecified Rheumatoid arthritis, unspecified ([facility]) Malignant neoplasm of cervix uteri, unspecified ([facility]) Type 2 diabetes mellitus with hyperglycemia, with long-term current use of insulin ([facility]) Type 2 diabetes mellitus with hyperglycemia, with long-term current use of insulin ([facility])- Primary Type 2 diabetes mellitus with diabetic chronic kidney disease ([facility]) Chronic kidney disease, stage 3b (HCC) ([facility]) Hyperparathyroidism, unspecified ([facility]) Hyperparathyroidism, unspecified Malignant neoplasm of cervix uteri, unspecified ([facility]) Rheumatoid arthritis, unspecified ([facility]) Essential (primary) hypertension ([facility]) Unspecified essential hypertension 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 Iron deficiency anemia, unspecified iron deficiency anemia type Primary hypertension ([facility]) Unspecified essential hypertension Type 2 diabetes mellitus with diabetic neuropathy, unspecified whether detention insulin use ([facility]) RSD (reflex sympathetic dystrophy) Unspecified reflex sympathetic dystrophy Continuous leakage of urine Continuous leakage 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, left, sequela ([facility]) Skin lesion of face Unspecified disorder of skin and subcutaneous tissue Essential (primary) hypertension ([facility])- Primary Unspecified essential hypertension Type 2 diabetes mellitus with diabetic neuropathy, unspecified whether oil heaterman insulin use ([facility]) Chronic kidney disease, stage 4 (severe) ([facility]) Neurogenic bladder Neurogenic bladder, NOS Type 2 diabetes mellitus with hyperglycemia, with long-term current use of insulin ([facility]) Other chest pain Continuous leakage of urine Continuous leakage Type 2 diabetes mellitus with diabetic neuropathy, with long-term current use of insulin ([facility])- Primary Malignant neoplasm of cervix uteri, unspecified ([facility]) Rheumatoid arthritis, unspecified ([facility]) Essential (primary) hypertension ([facility]) Unspecified essential hypertension Chronic kidney disease, stage 4 (severe) ([facility]) Neurogenic bladder Neurogenic bladder, NOS Type 2 diabetes mellitus with hyperglycemia, with long-term current use of insulin ([facility]) Immunodeficiency due to conditions classified elsewhere ([facility]) 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 ([facility]) Encounter for subsequent annual wellness visit (AWV) in Medicare patient- Primary Type 2 diabetes mellitus with diabetic neuropathy, with long-term current use of insulin ([facility]) Essential (primary) hypertension ([facility]) Unspecified essential hypertension Chronic kidney disease, stage 4 (severe) ([facility]) Type 2 diabetes mellitus with hyperglycemia, with long-term current use of insulin ([facility]) Mixed hyperlipidemia ([facility]) Mixed hyperlipidemia Non compliance w medication regimen Right foot pain- Primary Pain in soft tissues of limb documented in this encounter [facility]* Diagnosis Encounter for subsequent annual wellness visit (AWV) in Medicare patient- Primary Age related osteoporosis, unspecified pathological fracture presence ([facility]) Stage 3 chronic kidney disease, unspecified whether stage 3a or 3b CKD ([facility]) ([facility]) Primary hypertension ([facility]) Unspecified essential hypertension Type 2 diabetes mellitus with hyperglycemia, with long-term current use of insulin ([facility]) Vitamin D deficiency Type 2 diabetes mellitus with diabetic neuropathy, unspecified whether detention insulin use ([facility]) Type 2 diabetes mellitus with foot ulcer, with long-term current use of insulin ([facility]) Stage 3a chronic kidney disease (HCC) ([facility]) Neurogenic bladder Neurogenic bladder, NOS Visual impairment Unspecified visual loss Herpes simplex vulvovaginitis- Primary Primary hypertension ([facility])- Primary Unspecified essential hypertension Type 2 diabetes mellitus with hyperglycemia, with long-term current use of insulin ([facility]) Stage 3 chronic kidney disease, unspecified whether stage 3a or 3b CKD (HCC) ([facility]) Stage 3a chronic kidney disease (HCC) ([facility]) Urinary incontinence without sensory awareness Incontinence without sensory awareness Continuous leakage of urine Continuous leakage Primary hypertension ([facility])- Primary Unspecified essential hypertension Acute cystitis without hematuria Type 2 diabetes mellitus with diabetic neuropathy, unspecified whether detention insulin use ([facility]) UTI symptoms Stage 3a chronic kidney disease (HCC) ([facility]) Neurogenic bladder Neurogenic bladder, NOS Type 2 diabetes mellitus with hyperglycemia, with long-term current use of insulin ([facility]) Essential (primary) hypertension ([facility]) Unspecified essential hypertension Chronic cough- Primary Cough Type 2 diabetes mellitus with diabetic chronic kidney disease ([facility]) Chronic kidney disease, stage 3b (HCC) ([facility]) Hyperparathyroidism, unspecified ([facility]) Hyperparathyroidism, unspecified Rheumatoid arthritis, unspecified Malignant neoplasm of cervix uteri, unspecified Type 2 diabetes mellitus with hyperglycemia, with long-term current use of insulin ([facility]) Type 2 diabetes mellitus with hyperglycemia, with long-term current use of insulin ([facility])- Primary Type 2 diabetes mellitus with diabetic chronic kidney disease ([facility]) Chronic kidney disease, stage 3b (HCC) ([facility]) Hyperparathyroidism, unspecified ([facility]) Hyperparathyroidism, unspecified Malignant neoplasm of cervix uteri, unspecified Rheumatoid arthritis, unspecified Essential (primary) hypertension ([facility]) Unspecified essential hypertension 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 Iron deficiency anemia, unspecified iron deficiency anemia type Primary hypertension ([facility]) Unspecified essential hypertension Type 2 diabetes mellitus with diabetic neuropathy, unspecified whether detention insulin use ([facility]) RSD (reflex sympathetic dystrophy) Unspecified reflex sympathetic dystrophy Continuous leakage of urine Continuous leakage 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, left, sequela Skin lesion of face Unspecified disorder of skin and subcutaneous tissue Essential (primary) hypertension ([facility])- Primary Unspecified essential hypertension Type 2 diabetes mellitus with diabetic neuropathy, unspecified whether oil heaterman insulin use ([facility]) Chronic kidney disease, stage 4 (severe) ([facility]) Neurogenic bladder Neurogenic bladder, NOS Type 2 diabetes mellitus with hyperglycemia, with long-term current use of insulin ([facility]) Other chest pain Continuous leakage of urine Continuous leakage Type 2 diabetes mellitus with diabetic neuropathy, with long-term current use of insulin ([facility])- Primary Malignant neoplasm of cervix uteri, unspecified Rheumatoid arthritis, unspecified Essential (primary) hypertension ([facility]) Unspecified essential hypertension Chronic kidney disease, stage 4 (severe) ([facility]) Neurogenic bladder Neurogenic bladder, NOS Type 2 diabetes mellitus with hyperglycemia, with long-term current use of insulin ([facility]) Immunodeficiency due to conditions classified elsewhere ([facility]) USP (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 ([facility]) Encounter for subsequent annual wellness visit (AWV) in Medicare patient- Primary Type 2 diabetes mellitus with diabetic neuropathy, with long-term current use of insulin ([facility]) Essential (primary) hypertension ([facility]) Unspecified essential hypertension Chronic kidney disease, stage 4 (severe) ([facility]) Type 2 diabetes mellitus with hyperglycemia, with long-term current use of insulin ([facility]) Mixed hyperlipidemia ([facility]) Mixed hyperlipidemia Non compliance w medication regimen Encounter for subsequent annual wellness visit (AWV) in Medicare patient- Primary RSD (reflex sympathetic dystrophy) Unspecified reflex sympathetic dystrophy Type 2 diabetes mellitus with diabetic neuropathy, with long-term current use of insulin ([facility]) Essential (primary) hypertension ([facility]) Unspecified essential hypertension Chronic kidney disease, stage 4 (severe) ([facility]) Type 2 diabetes mellitus with hyperglycemia, with long-term current use of insulin ([facility]) 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 ([facility]) Non compliance w medication regimen Right foot pain Pain in soft tissues of limb Chest pain, unspecified type Continuous leakage of urine Continuous leakage Neurogenic bladder Neurogenic bladder, NOS documented in this encounter [facility] HealthcareEvaluation note* Diagnosis Encounter for subsequent annual wellness visit (AWV) in Medicare patient- Primary Age related osteoporosis, unspecified pathological fracture presence ([facility]) Stage 3 chronic kidney disease, unspecified whether stage 3a or 3b CKD (HCC) ([facility]) Primary hypertension ([facility]) Unspecified essential hypertension Type 2 diabetes mellitus with hyperglycemia, with long-term current use of insulin ([facility]) Vitamin D deficiency Type 2 diabetes mellitus with diabetic neuropathy, unspecified whether detention insulin use ([facility]) Type 2 diabetes mellitus with foot ulcer, with long-term current use of insulin ([facility]) Stage 3a chronic kidney disease (HCC) ([facility]) Neurogenic bladder Neurogenic bladder, NOS Visual impairment Unspecified visual loss Herpes simplex vulvovaginitis- Primary Primary hypertension ([facility])- Primary Unspecified essential hypertension Type 2 diabetes mellitus with hyperglycemia, with long-term current use of insulin ([facility]) Stage 3 chronic kidney disease, unspecified whether stage 3a or 3b CKD (HCC) ([facility]) Stage 3a chronic kidney disease (HCC) ([facility]) Urinary incontinence without sensory awareness Incontinence without sensory awareness Continuous leakage of urine Continuous leakage Primary hypertension ([facility])- Primary Unspecified essential hypertension Acute cystitis without hematuria Type 2 diabetes mellitus with diabetic neuropathy, unspecified whether oil heaterman insulin use ([facility]) UTI symptoms Stage 3a chronic kidney disease (HCC) ([facility]) Neurogenic bladder Neurogenic bladder, NOS Type 2 diabetes mellitus with hyperglycemia, with long-term current use of insulin ([facility]) Essential (primary) hypertension ([facility]) Unspecified essential hypertension Chronic cough- Primary Cough Type 2 diabetes mellitus with diabetic chronic kidney disease ([facility]) Chronic kidney disease, stage 3b (HCC) ([facility]) Hyperparathyroidism, unspecified ([facility]) Hyperparathyroidism, unspecified Rheumatoid arthritis, unspecified Malignant neoplasm of cervix uteri, unspecified Type 2 diabetes mellitus with hyperglycemia, with long-term current use of insulin ([facility]) Type 2 diabetes mellitus with hyperglycemia, with long-term current use of insulin ([facility])- Primary Type 2 diabetes mellitus with diabetic chronic kidney disease ([facility]) Chronic kidney disease, stage 3b (HCC) ([facility]) Hyperparathyroidism, unspecified ([facility]) Hyperparathyroidism, unspecified Malignant neoplasm of cervix uteri, unspecified Rheumatoid arthritis, unspecified Essential (primary) hypertension ([facility]) Unspecified essential hypertension 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 Iron deficiency anemia, unspecified iron deficiency anemia type Primary hypertension ([facility]) Unspecified essential hypertension Type 2 diabetes mellitus with diabetic neuropathy, unspecified whether oil heaterman insulin use ([facility]) RSD (reflex sympathetic dystrophy) Unspecified reflex sympathetic dystrophy Continuous leakage of urine Continuous leakage 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, left, sequela Skin lesion of face Unspecified disorder of skin and subcutaneous tissue Essential (primary) hypertension ([facility])- Primary Unspecified essential hypertension Type 2 diabetes mellitus with diabetic neuropathy, unspecified whether oil heaterman insulin use ([facility]) Chronic kidney disease, stage 4 (severe) ([facility]) Neurogenic bladder Neurogenic bladder, NOS Type 2 diabetes mellitus with hyperglycemia, with long-term current use of insulin ([facility]) Other chest pain Continuous leakage of urine Continuous leakage Type 2 diabetes mellitus with diabetic neuropathy, with long-term current use of insulin ([facility])- Primary Malignant neoplasm of cervix uteri, unspecified Rheumatoid arthritis, unspecified Essential (primary) hypertension ([facility]) Unspecified essential hypertension Chronic kidney disease, stage 4 (severe) ([facility]) Neurogenic bladder Neurogenic bladder, NOS Type 2 diabetes mellitus with hyperglycemia, with long-term current use of insulin ([facility]) Immunodeficiency due to conditions classified elsewhere ([facility]) USP (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 ([facility]) Encounter for subsequent annual wellness visit (AWV) in Medicare patient- Primary Type 2 diabetes mellitus with diabetic neuropathy, with long-term current use of insulin ([facility]) Essential (primary) hypertension ([facility]) Unspecified essential hypertension Chronic kidney disease, stage 4 (severe) ([facility]) Type 2 diabetes mellitus with hyperglycemia, with long-term current use of insulin ([facility]) Mixed hyperlipidemia ([facility]) Mixed hyperlipidemia Non compliance w medication regimen Encounter for subsequent annual wellness visit (AWV) in Medicare patient- Primary RSD (reflex sympathetic dystrophy) Unspecified reflex sympathetic dystrophy Type 2 diabetes mellitus with diabetic neuropathy, with long-term current use of insulin ([facility]) Essential (primary) hypertension ([facility]) Unspecified essential hypertension Chronic kidney disease, stage 4 (severe) ([facility]) Type 2 diabetes mellitus with hyperglycemia, with long-term current use of insulin ([facility]) USP (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 ([facility]) Non compliance w medication regimen Right foot pain Pain in soft tissues of limb Chest pain, unspecified type Continuous leakage of urine Continuous leakage Neurogenic bladder Neurogenic bladder, NOS Acute renal failure, unspecified acute renal failure type ([facility])- Primary Chronic kidney disease, stage 4 (severe) ([facility]) Essential (primary) hypertension ([facility]) Unspecified essential hypertension Type 2 diabetes mellitus with diabetic neuropathy, with long-term current use of insulin ([facility]) History of neurogenic bladder Type 2 diabetes mellitus with hyperglycemia, with long-term current use of insulin ([facility]) USP (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 ([facility]) Non compliance w medication regimen Memory impairment Memory loss Cellulitis of right foot- Primary Laceration of right foot with foreign body, initial encounter Diabetes mellitus due to underlying condition with diabetic polyneuropathy, with long-term current use of insulin ([facility]) documented in this encounter [facility] HealthcareEvaluation note* Diagnosis Encounter for subsequent annual wellness visit (AWV) in Medicare patient- Primary Age related osteoporosis, unspecified pathological fracture presence ([facility]) Stage 3 chronic kidney disease, unspecified whether stage 3a or 3b CKD (HCC) ([facility]) Primary hypertension ([facility]) Unspecified essential hypertension Type 2 diabetes mellitus with hyperglycemia, with long-term current use of insulin ([facility]) Vitamin D deficiency Type 2 diabetes mellitus with diabetic neuropathy, unspecified whether detention insulin use ([facility]) Type 2 diabetes mellitus with foot ulcer, with long-term current use of insulin ([facility]) Stage 3a chronic kidney disease (HCC) ([facility]) Neurogenic bladder Neurogenic bladder, NOS Visual impairment Unspecified visual loss Herpes simplex vulvovaginitis- Primary Primary hypertension ([facility])- Primary Unspecified essential hypertension Type 2 diabetes mellitus with hyperglycemia, with long-term current use of insulin ([facility]) Stage 3 chronic kidney disease, unspecified whether stage 3a or 3b CKD (HCC) ([facility]) Stage 3a chronic kidney disease (HCC) ([facility]) Urinary incontinence without sensory awareness Incontinence without sensory awareness Continuous leakage of urine Continuous leakage Primary hypertension ([facility])- Primary Unspecified essential hypertension Acute cystitis without hematuria Type 2 diabetes mellitus with diabetic neuropathy, unspecified whether oil heaterman insulin use ([facility]) UTI symptoms Stage 3a chronic kidney disease (HCC) ([facility]) Neurogenic bladder Neurogenic bladder, NOS Type 2 diabetes mellitus with hyperglycemia, with long-term current use of insulin ([facility]) Essential (primary) hypertension ([facility]) Unspecified essential hypertension Chronic cough- Primary Cough Type 2 diabetes mellitus with diabetic chronic kidney disease ([facility]) Chronic kidney disease, stage 3b (HCC) ([facility]) Hyperparathyroidism, unspecified ([facility]) Hyperparathyroidism, unspecified Rheumatoid arthritis, unspecified Malignant neoplasm of cervix uteri, unspecified Type 2 diabetes mellitus with hyperglycemia, with long-term current use of insulin ([facility]) Type 2 diabetes mellitus with hyperglycemia, with long-term current use of insulin ([facility])- Primary Type 2 diabetes mellitus with diabetic chronic kidney disease ([facility]) Chronic kidney disease, stage 3b (HCC) ([facility]) Hyperparathyroidism, unspecified ([facility]) Hyperparathyroidism, unspecified Malignant neoplasm of cervix uteri, unspecified Rheumatoid arthritis, unspecified Essential (primary) hypertension ([facility]) Unspecified essential hypertension 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 Iron deficiency anemia, unspecified iron deficiency anemia type Primary hypertension ([facility]) Unspecified essential hypertension Type 2 diabetes mellitus with diabetic neuropathy, unspecified whether detention insulin use ([facility]) RSD (reflex sympathetic dystrophy) Unspecified reflex sympathetic dystrophy Continuous leakage of urine Continuous leakage 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, left, sequela Skin lesion of face Unspecified disorder of skin and subcutaneous tissue Essential (primary) hypertension ([facility])- Primary Unspecified essential hypertension Type 2 diabetes mellitus with diabetic neuropathy, unspecified whether oil heaterman insulin use ([facility]) Chronic kidney disease, stage 4 (severe) ([facility]) Neurogenic bladder Neurogenic bladder, NOS Type 2 diabetes mellitus with hyperglycemia, with long-term current use of insulin ([facility]) Other chest pain Continuous leakage of urine Continuous leakage Type 2 diabetes mellitus with diabetic neuropathy, with long-term current use of insulin ([facility])- Primary Malignant neoplasm of cervix uteri, unspecified Rheumatoid arthritis, unspecified Essential (primary) hypertension ([facility]) Unspecified essential hypertension Chronic kidney disease, stage 4 (severe) ([facility]) Neurogenic bladder Neurogenic bladder, NOS Type 2 diabetes mellitus with hyperglycemia, with long-term current use of insulin ([facility]) Immunodeficiency due to conditions classified elsewhere ([facility]) 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 ([facility]) Encounter for subsequent annual wellness visit (AWV) in Medicare patient- Primary Type 2 diabetes mellitus with diabetic neuropathy, with long-term current use of insulin ([facility]) Essential (primary) hypertension ([facility]) Unspecified essential hypertension Chronic kidney disease, stage 4 (severe) ([facility]) Type 2 diabetes mellitus with hyperglycemia, with long-term current use of insulin ([facility]) Mixed hyperlipidemia ([facility]) Mixed hyperlipidemia Non compliance w medication regimen Encounter for subsequent annual wellness visit (AWV) in Medicare patient- Primary RSD (reflex sympathetic dystrophy) Unspecified reflex sympathetic dystrophy Type 2 diabetes mellitus with diabetic neuropathy, with long-term current use of insulin ([facility]) Essential (primary) hypertension ([facility]) Unspecified essential hypertension Chronic kidney disease, stage 4 (severe) ([facility]) Type 2 diabetes mellitus with hyperglycemia, with long-term current use of insulin ([facility]) 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 ([facility]) Non compliance w medication regimen Right foot pain Pain in soft tissues of limb Chest pain, unspecified type Continuous leakage of urine Continuous leakage Neurogenic bladder Neurogenic bladder, NOS Acute renal failure, unspecified acute renal failure type ([facility])- Primary Chronic kidney disease, stage 4 (severe) ([facility]) Essential (primary) hypertension ([facility]) Unspecified essential hypertension Type 2 diabetes mellitus with diabetic neuropathy, with long-term current use of insulin ([facility]) History of neurogenic bladder Type 2 diabetes mellitus with hyperglycemia, with long-term current use of insulin ([facility]) USP (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 ([facility]) Non compliance w medication regimen Memory impairment Memory loss Cellulitis of right foot- Primary Laceration of right foot with foreign body, initial encounter Diabetes mellitus due to underlying condition with diabetic polyneuropathy, with long-term current use of insulin ([facility]) documented in this encounter [facility] HealthcareEvaluation note* Diagnosis Reflex sympathetic dystrophy of right upper extremity- Primary [facility]* Diagnosis Reflex sympathetic dystrophy of right upper extremity Complex regional pain syndrome type 1 of right upper extremity Reflex sympathetic dystrophy of right upper extremity- Primary Reflex sympathetic dystrophy of right upper extremity documented in this encounter [facility] SystemEvaluation note* Diagnosis Encounter for subsequent annual wellness visit (AWV) in Medicare patient- Primary Age related osteoporosis, unspecified pathological fracture presence ([facility]) Stage 3 chronic kidney disease, unspecified whether stage 3a or 3b CKD (HCC) ([facility]) Primary hypertension ([facility]) Unspecified essential hypertension Type 2 diabetes mellitus with hyperglycemia, with long-term current use of insulin ([facility]) Vitamin D deficiency Type 2 diabetes mellitus with diabetic neuropathy, unspecified whether oil heaterman insulin use ([facility]) Type 2 diabetes mellitus with foot ulcer, with long-term current use of insulin ([facility]) Stage 3a chronic kidney disease (HCC) ([facility]) Neurogenic bladder Neurogenic bladder, NOS Visual impairment Unspecified visual loss Herpes simplex vulvovaginitis- Primary Primary hypertension ([facility])- Primary Unspecified essential hypertension Type 2 diabetes mellitus with hyperglycemia, with long-term current use of insulin ([facility]) Stage 3 chronic kidney disease, unspecified whether stage 3a or 3b CKD (HCC) ([facility]) Stage 3a chronic kidney disease (HCC) ([facility]) Urinary incontinence without sensory awareness Incontinence without sensory awareness Continuous leakage of urine Continuous leakage Primary hypertension ([facility])- Primary Unspecified essential hypertension Acute cystitis without hematuria Type 2 diabetes mellitus with diabetic neuropathy, unspecified whether detention insulin use ([facility]) UTI symptoms Stage 3a chronic kidney disease (HCC) ([facility]) Neurogenic bladder Neurogenic bladder, NOS Type 2 diabetes mellitus with hyperglycemia, with long-term current use of insulin ([facility]) Essential (primary) hypertension ([facility]) Unspecified essential hypertension Chronic cough- Primary Cough Type 2 diabetes mellitus with diabetic chronic kidney disease ([facility]) Chronic kidney disease, stage 3b (HCC) ([facility]) Hyperparathyroidism, unspecified ([facility]) Hyperparathyroidism, unspecified Rheumatoid arthritis, unspecified Malignant neoplasm of cervix uteri, unspecified Type 2 diabetes mellitus with hyperglycemia, with long-term current use of insulin ([facility]) Type 2 diabetes mellitus with hyperglycemia, with long-term current use of insulin ([facility])- Primary Type 2 diabetes mellitus with diabetic chronic kidney disease ([facility]) Chronic kidney disease, stage 3b (HCC) ([facility]) Hyperparathyroidism, unspecified ([facility]) Hyperparathyroidism, unspecified Malignant neoplasm of cervix uteri, unspecified Rheumatoid arthritis, unspecified Essential (primary) hypertension ([facility]) Unspecified essential hypertension 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 Iron deficiency anemia, unspecified iron deficiency anemia type Primary hypertension ([facility]) Unspecified essential hypertension Type 2 diabetes mellitus with diabetic neuropathy, unspecified whether detention insulin use ([facility]) RSD (reflex sympathetic dystrophy) Unspecified reflex sympathetic dystrophy Continuous leakage of urine Continuous leakage 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, left, sequela Skin lesion of face Unspecified disorder of skin and subcutaneous tissue Essential (primary) hypertension ([facility])- Primary Unspecified essential hypertension Type 2 diabetes mellitus with diabetic neuropathy, unspecified whether detention insulin use ([facility]) Chronic kidney disease, stage 4 (severe) ([facility]) Neurogenic bladder Neurogenic bladder, NOS Type 2 diabetes mellitus with hyperglycemia, with long-term current use of insulin ([facility]) Other chest pain Continuous leakage of urine Continuous leakage Type 2 diabetes mellitus with diabetic neuropathy, with long-term current use of insulin ([facility])- Primary Malignant neoplasm of cervix uteri, unspecified Rheumatoid arthritis, unspecified Essential (primary) hypertension ([facility]) Unspecified essential hypertension Chronic kidney disease, stage 4 (severe) ([facility]) Neurogenic bladder Neurogenic bladder, NOS Type 2 diabetes mellitus with hyperglycemia, with long-term current use of insulin ([facility]) Immunodeficiency due to conditions classified elsewhere ([facility]) USP (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 ([facility]) Encounter for subsequent annual wellness visit (AWV) in Medicare patient- Primary Type 2 diabetes mellitus with diabetic neuropathy, with long-term current use of insulin ([facility]) Essential (primary) hypertension ([facility]) Unspecified essential hypertension Chronic kidney disease, stage 4 (severe) ([facility]) Type 2 diabetes mellitus with hyperglycemia, with long-term current use of insulin ([facility]) Mixed hyperlipidemia ([facility]) Mixed hyperlipidemia Non compliance w medication regimen Encounter for subsequent annual wellness visit (AWV) in Medicare patient- Primary RSD (reflex sympathetic dystrophy) Unspecified reflex sympathetic dystrophy Type 2 diabetes mellitus with diabetic neuropathy, with long-term current use of insulin ([facility]) Essential (primary) hypertension ([facility]) Unspecified essential hypertension Chronic kidney disease, stage 4 (severe) ([facility]) Type 2 diabetes mellitus with hyperglycemia, with long-term current use of insulin ([facility]) USP (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 ([facility]) Non compliance w medication regimen Right foot pain Pain in soft tissues of limb Chest pain, unspecified type Continuous leakage of urine Continuous leakage Neurogenic bladder Neurogenic bladder, NOS Acute renal failure, unspecified acute renal failure type ([facility])- Primary Chronic kidney disease, stage 4 (severe) ([facility]) Essential (primary) hypertension ([facility]) Unspecified essential hypertension Type 2 diabetes mellitus with diabetic neuropathy, with long-term current use of insulin ([facility]) History of neurogenic bladder Type 2 diabetes mellitus with hyperglycemia, with long-term current use of insulin ([facility]) USP (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 ([facility]) Non compliance w medication regimen Memory impairment Memory loss Chronic kidney disease, stage 4 (severe) ([facility])- Primary Mixed hyperlipidemia ([facility]) Mixed hyperlipidemia Essential (primary) hypertension ([facility]) Unspecified essential hypertension Burning with urination Dysuria UTI symptoms Urinary tract infection symptoms Type 2 diabetes mellitus with diabetic neuropathy, with long-term current use of insulin ([facility]) History of neurogenic bladder Neurogenic bladder Neurogenic bladder, NOS 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 Hyperparathyroidism, unspecified ([facility]) Hyperparathyroidism, unspecified B12 deficiency Type 2 diabetes mellitus with hyperglycemia, with long-term current use of insulin ([facility]) Vitamin D deficiency Hypomagnesemia Disorders of magnesium metabolism Non compliance w medication regimen Fatigue, unspecified type documented in this encounter [facility] HealthcareEvaluation note* Diagnosis Reflex sympathetic dystrophy of right upper extremity- Primary Reflex sympathetic dystrophy of right upper extremity Reflex sympathetic dystrophy of right upper extremity [facility]* Diagnosis Complex regional pain syndrome type 1 of right upper extremity- Primary [facility]* Diagnosis Complex regional pain syndrome type 1 of right upper extremity Reflex sympathetic dystrophy of right upper extremity [facility] in this [facility]* Diagnosis Onset Date Resolution Status [...] madhavi with type 2 diabetes mellitus resolved [facility] 2024 1:57pm Hyperkalemia resolved March 17, 1:57pm Hypertensive nephropathy resolved March 17, 2025 1:57pm Iron deficiency anemia resolved [facility] 2024 1:57pm Vitamin D deficiency resolved March 17, 2025 1:57pm [facility] Work Phone: Evaluation note* Diagnosis Reflex sympathetic dystrophy of right upper extremity documented in this encounter [facility] SystemEvaluation note* Diagnosis Complex regional pain syndrome type 1 of right upper extremity Reflex sympathetic dystrophy of right upper extremity documented in this encounter [facility] SystemHistory and physical note Author Alejandro Vallejo [facility] Note Date/Time September 06, 2024 1 2:23am [facility] [address] [place] [address] Hospitalist H&P Signed Patient: Aislinn Wheeler MR#: [id number] : 1960 Acct:[id number] Age/Sex: 64 / F Adm Date: 5 Loc: Room: [address] [place] [address] Type: ADM IN Attending Dr: Alejandro Vallejo MD Copies to: MD Agusto Pabon, FAUSTINOC~ HPI DATE OF EXAMINATION: 09/06/24 CHIEF COMPLAINT: Abnormal labs HISTORY OF PRESENT ILLNESS: Ms. 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 She had a routine appointment yesterday and was asked to get admitted in the hospital for abnormal labs. She went to [facility] whereshe was treated for urinary tract infection and hypokalemia. She was dischargedtoday and checked with her heavy equipment plumbing supervisor who recommended her to come to this [...] negative unless noted below or in HPI [facility] Medical History (Updated 09/05/24 @ 20:43 by [...] % (Auto) 25.0 % (.) 09/05/24 17:56 Upson % (Auto) 5.8 % (.) 09/05/24 17:56 Eos % (Auto) 2.2 % (.) 09/05/24 17:56 Baso % (Auto) 1.4 % (.) 09/05/24 17:56 Nucleat RBC Rel Count 0.1 /100 WBC (0-0.5) 09/05/24 17:56 Neut # (Auto) 5.5 x10E3/uL (1.8-7.7) 09/05/24 17:56 Lymph # (Auto) 2.1 x10E3/uL (1.00-4.8) 09/05/24 17:56 Upson # (Auto) 0.5 x10E3/uL (0.0-0.8) 09/05/24 17:56 [...] pH 6.0 (5.0-9.0) 09/05/24 18:19 Ur Specific Aurora 1.007 (1.001-1.030) 09/05/24 18:19 Urine Protein 70 [...] vitamin D deficiency, diabetes, who 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 She went to [facility] where she was treated for urinary tract infection and hypokalemia. She was discharged today and checked with her heavy equipment plumbing supervisor who recommended her to come to this [...] scale of 1 for history of diabetes -Mail Clerk consulted -May consider urology consult for urine [...] signed by Alejandro Vallejo MD> 09/06/24 0023 [facility] Work Phone: [facility] general Narrative - Reported* Type Description Date [...] Hospitalization History DKA 2014 Hospitalization History [facility] 05/2022 [facility] Other [facility] general Narrative - Reported* Type Description Date [...] SURGERY Hospitalization History DKA 2015 Hospitalization History [facility] 05/2022 [facility] Other Hospital course Narrative No data available for this section [facility] Hospital Discharge instructions No data available for this section [facility] Hospital Discharge instructionsAmbulatory Orders* Referral to Diabetes Management Time Frame: 05/14/25, Location: None Selected [facility] Work Phone: Hospital Discharge instructions Additional Instructions Home Health liaison will reach out to you after you have established care with your primary care provider.[facility] Work Phone: InstructionsNot on filedocumented in this encounter [facility] [...] available for this section [facility] progress note Author Akin Dougherty [facility] Note Date/Time September 08, 2024 1 1:42am [facility] [address] [place] [address] Nephrology Progress Note Signed Patient: Aislinn Wheeler MR#: [id number] : 1960 Acct:[id number] Age/Sex: 64 / F Adm Date: 5 Loc: 3T Room: 5W0053-9 Type: ADM IN Attending Dr: Gilmer Tai [...] complex cystic mass on the kidney at [facility] in 2023.. Patient is known to have neurogenic bladder she uses self cath at home for quitesome time however recently she ran out of supplies. Patient was seen by Dr. Sprague in the office on 115 and had creatinine was found to be 2.7 mg/dL much higher than previous baseline, potassium 5.8 and blood pressure 210/110. Initially she went to the [place] [facility] on 09/04 and she had a [...] Patient was called again to come to [facility] as her potassium continues to be elevated [...] Bitart/Acetaminophen (Hydrocodone/Acetaminophen 7.5-325mg Tablet) 1tab PO Q8HR [facility] Last Admin: 09/08/24 06:08 Dose: 1 tab Atorvastatin Calcium (Atorvastatin 20 Mg Tablet) 20 mg PO DAILY [facility] Stop: 09/07/25 08:59 Last Admin: 09/08/24 08:45 Dose: 20 mg Bethanechol Chloride (Bethanechol 10 Mg Tablet) 10 mg PO TID [facility] Stop: 09/07/25 13:59 Last Admin: 09/08/24 08:44 Dose: 10 mg Dextrose (Dextrose 50% In Water 25 Gm/50 Ml Syringe) 0 gm IV-PUSH PRN PRN PRN Reason: Hypoglycemia Stop: 09/05/25 22:01 Enoxaparin Sodium (Enoxaparin 30 Mg/0.3 Ml Syringe) 30 mg SUBCUT DAILY@1000 [facility] Stop: 09/06/25 09:59 Last Admin: 09/07/24 09:07 Dose: 30 mg Furosemide (Furosemide 40 Mg Tablet) 40 mg PO BID@0800,1600 [facility] Stop: 09/06/25 15:59 Last Admin: 09/08/24 [...] Aspart 300 Units/3 Ml) 0 units SUBCUT TID.[facility]; Protocol Stop: 09/06/25 07:59 Last Admin: 09/08/24 08:45 Dose: Not Given Insulin Glargine (Insulin Glargine 300 Units/3 Ml Insuln.Pen) 28 units SUBCUT QHS [facility] Stop: 09/06/25 21:59 Last Admin: 09/07/24 21:16 Dose: 28 units Metoprolol Succinate (Metoprolol Succinate 50 Mg Tab.Er.24h) 50 mg PO DAILY [facility] Stop: 09/06/25 08:59 Last Admin: 09/08/24 08:45 Dose: 50 mg Oxycodone/Acetaminophen (Oxycodone/Acetaminophen 5-325 Mg Tablet) 1 tab PO Q4H PRN PRN Reason: Pain Scale 4 - 7 Last Admin: 09/06/24 10:18 Dose: 1 tab Pregabalin (Pregabalin 75 Mg Capsule) 75 mg PO BID [facility] Stop: 03/05/25 20:59 Last Admin: 09/08/24 08:52 Dose: 75 mg Sodium Bicarbonate (Sodium Bicarbonate 650 Mg Tablet) 650 mg PO TID [facility] Stop: 09/06/25 19:59 Last Admin: 09/08/24 [...] of the abdomen that [facility]. Renal ultrasound on 09/06/2024 showed [...] stated that she follow-up with urology at [facility] as well. * Continue sodium bicarb 650 [...] <Electronically signed by MD Akin Dougherty> 09/08/24 [facility] Work Phone: [facility] (narrative)* Diagnostic Procedure Only (Routine) - Pending Review Specialty Diagnoses / Procedures Referred By Danny hensley Referred To Contact US IMAGING Diagnoses Kidney cyst, acquired Procedures US KIDNEY/BLADDER US RETROPERITONEAL REAL TIME W/IMAGE COMPLETE Taurus Ballard MD [address] [facility] [address] Us Imaging [place] [address] Referral ID Status Reason Start Date Expiration Date Visits Requested Visits Authorized [id number] Pending Review Auto-Generat ed Referral 10/05/2023 08/03/2024 1 1 [facility] for referral (narrative)* Outpatient Procedure (Routine) - New Request Specialty Diagnoses / Procedures Referred By Danny hensley Referred To Contact [facility] Diagnoses Retention of urine BURKE (stress urinary incontinence, female) Procedures FLUROURODYNAMICS WITH EMG EMG STDS ANAL/URTL SPHNCTR OTH/THN CATHYL Carmenza Espinosa MD [address] [place] [address] [place] [address] [place] [address] Referral ID Status Reason Start Date Expiration Date Visits Requested Visits Authorized [id number] New Request Auto-Generat ed Referral 03/26/2024 03/26/2025 1 1 [facility] for referral (narrative)* Consultation (Routine) - Pending Review Specialty Diagnoses / Procedures Referred By Contac t Referred To Contact Nephrology Diagnoses Hyperparathyroidism, unspecified (CMS/HCC) Stage 3a chronic kidney disease (HCC) ([facility]/HCC) Procedures RI OFFICE/OUTPATIENT NEW HIGH MDM 60 MINUTES Agusto Olmstead NP [address] [place] [address] Tyler Valencia MD [address] [address] Referral ID Status Reason Start Date Expiration Date Visits Requested Visits Authorized [id number] Pending Review Specialty Services Required 04/16/2024 10/13/2024 1 1 Scheduling Instructions Was already seen in practice, [facility] (narrative)No reason for referral information availablePremier Health Work Phone: Reason for visit NarrativeReferral Agusto Olmstead, New pt Type 2 IDDM 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[employer], 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, BC-ADMNorth [employer] Other Summary Purpose Family History Relationship Condition [...] Condition Age at Onset Recorded Date/T lalit Not Specified Myocardial infarction Unknown brother Heart disease Unknown Hypertension Unknown father Unknown Heart disease Unknown Diabetes mellitus Unknown Malignant neoplasm Unknown mother Heart disease Unknown Unknown History of stroke Unknown sister Hypertension Unknown Advance Directives Documents on File Type Date Recorded 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 Advance Directive(s) 01/17/2021 3:49 PM Advance Directive Response Recorded Date/ Time Advance Directives No April 09, 2024 11:42am Advance Directive Response Recorded Date/ Time Advance Directives No April 09, 2024 10:42am Reason for Referral Specialty Diagnoses / Procedures Referred By Danny t Referred To Contact CT IMAGING Diagnoses Other hydronephrosis Procedures CT UROGRAM WO/W IVCON CT ABD & PELVIS W/WO CONTRST 1+ BODY REGTaurus Gutierrez MD [address] [place] [address] [place] [address] Referral ID Status Reason Start Date Expiration Date Visits Requested Visits Authorized [id number] Pending Review Auto-Generat ed Referral 01/19/2024 02/10/2025 [...] September 04, 2024 1 1:12am sent by Dr kidney issues September 05, 2024 9:58pm Reason [...] September 04, 2024 1 1:12am sent by Dr kidney issues September 05, 2024 9:58pm sent [...] Vitamin D deficiency September 04, 2024 11:12am ANATLOIY (acute kidney injury) September 05, 2024 9:58pm [...] D deficiency March 17, 2025 1:5 7pm Chief Complaint Admit Date Hospital f/u March 17, 2025 1:57 pm renal 2 month f/u May 14, 2025 10:59am Reason for Visit Admit Date Anemia of [...] March 17, 2025 1:57 pm 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 March 17, 2025 1:57pm Hyperkalemia March 17, 2025 1:57 pm Hypertensive nephropathy March 17, 2025 1:57pm Iron deficiency anemia March 17, 2025 1 :57pm Vitamin D deficiency March 17, 2025 1:5 7pm Anemia of renal disease May 14, 2025 10:59am B12 deficiency May 14, 2025 10:59am Chronic kidney disease, stage IV (severe ) May 14, 2025 10:59am CKD stage 3b, GFR 30-44 ml/min May 14, 2025 10:59am DM type 2 (diabetes mellitus, type 2) Se pt2024 10:59am Hyperparathyroidism May 14, 2025 10:59am Hypomagnesemia May 14, 2025 10:59am Neurogenic bladder May 14, 2025 10:59am Renal cyst May 14, 2025 10:59am 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 May 14, 2025 10:59am Hyperkalemia May 14, 2025 10:59am Hypertensive nephropathy May 14, 2025 10:59am Iron deficiency anemia May 14, 025 10:59am Vitamin D deficiency May 14 10:59am Chief Complaint Admit Date Hospital f/u March 17, 2025 1:57 pm renal 2 month f/u May 14, 2025 10:59am dizzy, falling May 20, 2025 6:50pm Reason for Visit Admit Date Anemia of [...] March 17, 2025 1:57 pm 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 March 17, 2025 1:57pm Hyperkalemia March 17, 2025 1:57 pm Hypertensive nephropathy March 17, 2025 1:57pm Iron deficiency anemia March 17, 2025 1 :57pm Vitamin D deficiency March 17, 2025 1:5 7pm Anemia of renal disease May 14, 2025 10:59am B12 deficiency May 14, 2025 10:59am Chronic kidney disease, stage IV (severe ) May 14, 2025 10:59am CKD stage 3b, GFR 30-44 ml/min May 14, 2025 10:59am DM type 2 (diabetes mellitus, type 2) Se ptember 2024 10:59am Hyperparathyroidism May 14, 2025 10:59am Hypomagnesemia May 14, 2025 10:59am Neurogenic bladder May 14, 2025 10:59am Renal cyst May 14, 2025 10:59am 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 May 14, 2025 10:59am Hyperkalemia May 14, 2025 10:59am Hypertensive nephropathy May 14, 2025 10:59am Iron deficiency anemia May 14, 10:59am Vitamin D deficiency May 14 10:59am Anemia of renal disease May 20, 2025 6:50pm CKD stage 3b, GFR 30-44 ml/min May 20, 2025 6:50pm DM type 2 (diabetes mellitus, type 2) Se ptember 2024 6:50pm Generalized weakness May 20 6:50pm Hypertension May 20, 2025 6:50pm Multiple falls May 20, 2025 6:50pm Obstructive nephropathy due to neurogeni c bladder May 20, 2025 6:50pm Self-catheterizes urinary bladder Sept2024 6:50pm Urinary tract infection May 20, 2025 6:50pm ANATOLIY (acute kidney injury) April 6:50pm Reason for Visit Admit Date Anemia of [...] March 17, 2025 1:57 pm 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 March 17, 2025 1:57pm Hyperkalemia March 17, 2025 1:57 pm Hypertensive nephropathy March 17, 2025 1:57pm Iron deficiency anemia March 17, 2025 1 :57pm Vitamin D deficiency March 17, 2025 1:5 7pm Anemia of renal disease May 14, 2025 10:59am B12 deficiency May 14, 2025 10:59am Chronic kidney disease, stage IV (severe ) May 14, 2025 10:59am CKD stage 3b, GFR 30-44 ml/min May 14, 2025 10:59am DM type 2 (diabetes mellitus, type 2) Se ptember 2024 10:59am Hyperparathyroidism May 14, 2025 10:59am Hypomagnesemia May 14, 2025 10:59am Neurogenic bladder May 14, 2025 10:59am Renal cyst May 14, 2025 10:59am 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 May 14, 2025 10:59am Hyperkalemia May 14, 2025 10:59am Hypertensive nephropathy May 14, 2025 10:59am Iron deficiency anemia May 14 10:59am Vitamin D deficiency May 14 10:59am Anemia of renal disease May 20, 2025 6:50pm Chronic kidney disease, stage V [id number] 6:50pm CKD stage 3b, GFR 30-44 ml/min May 20, 2025 6:50pm DM type 2 (diabetes mellitus, type 2) Se ptember 2024 6:50pm ESRD (end stage renal disease) May 20, 2025 6:50pm Generalized weakness May 20 6:50pm Hydroureteronephrosis May 20 6:50pm Hypertension May 20, 2025 6:50pm Multiple falls May 20, 2025 6:50pm Obstructive nephropathy due to neurogeni c bladder May 20, 2025 6:50pm Self-catheterizes urinary bladder Sept2024 6:50pm Urinary tract infection May 20, 2025 6:50pm ANATOLIY (acute kidney injury) April 6:50pm Hypertensive nephropathy May 20, 2025 6:50pm Chief Complaint Admit Date Hospital f/u March 17, 2025 1:57 pm renal 2 month f/u May 14, 2025 10:59am dizzy, falling May 20, 2025 6:50pm To go over vein mapping; Vmap at 1:30pm May 29, 2025 1:35pm Chief Complaint Admit Date Hospital f/u March 17, 2025 1:57 pm renal 2 month f/u May 14, 2025 10:59am dizzy, falling May 20, 2025 6:50pm To go over vein mapping; Vmap at 1:30pm May 29, 2025 1:35pm [email or web address] June 02, 2025 2 :31pm Reason for Visit Admit Date Anemia of [...] March 17, 2025 1:57 pm 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 March 17, 2025 1:57pm Hyperkalemia March 17, 2025 1:57 pm Hypertensive nephropathy March 17, 2025 1:57pm Iron deficiency anemia March 17, 2025 1 :57pm Vitamin D deficiency March 17, 2025 1:5 7pm Anemia of renal disease May 14, 2025 10:59am B12 deficiency May 14, 2025 10:59am Chronic kidney disease, stage IV (severe ) May 14, 2025 10:59am CKD stage 3b, GFR 30-44 ml/min May 14, 2025 10:59am DM type 2 (diabetes mellitus, type 2) Se ptember 2024 10:59am Hyperparathyroidism May 14, 2025 10:59am Hypomagnesemia May 14, 2025 10:59am Neurogenic bladder May 14, 2025 10:59am Renal cyst May 14, 2025 10:59am 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 May 14, 2025 10:59am Hyperkalemia May 14, 2025 10:59am Hypertensive nephropathy May 14, 2025 10:59am Iron deficiency anemia May 14, 025 10:59am Vitamin D deficiency May 14 10:59am Anemia of renal disease May 20, 2025 6:50pm Chronic kidney disease, stage V Septembe r 2024 6:50pm CKD stage 3b, GFR 30-44 ml/min May 20, 2025 6:50pm DM type 2 (diabetes mellitus, type 2) Se ptember 2024 6:50pm ESRD (end stage renal disease) May 20, 2025 6:50pm Generalized weakness May 20 6:50pm Hydroureteronephrosis May 20 6:50pm Hypertension May 20, 2025 6:50pm Multiple falls May 20, 2025 6:50pm Obstructive nephropathy due to neurogeni c bladder May 20, 2025 6:50pm Self-catheterizes urinary bladder Sept2024 6:50pm Urinary tract infection May 20, 2025 6:50pm ANATOLIY (acute kidney injury) April 6:50pm Hypertensive nephropathy May 20, 2025 6:50pm ESRD (end stage renal disease) May 292024 1:35pm Additional Source Comments INFORMATION SOURCE (unrecogn ized section and content) DATE CREATED AUTHOR 01/23/2021 [facility] DATE CREATED AUTHOR AUTHOR'S ORGANIZ ATION 01/04/2023 [facility] DATE CREATED AUTHOR AUTHOR'S ORGANIZ ATION 11/03/2023 [facility] DATE CREATED AUTHOR AUTHOR'S ORGANIZ ATION 03/05/2024 [facility] DATE CREATED AUTHOR AUTHOR'S ORGANIZ ATION 04/02/2024 [facility] DATE CREATED AUTHOR AUTHOR'S ORGANIZ ATION 04/29/2024 [facility] DATE CREATED AUTHOR AUTHOR'S ORGANIZ ATION 06/28/2024 [facility] DATE CREATED AUTHOR AUTHOR'S ORGANIZ ATION 07/08/2024 [facility] DATE CREATED AUTHOR AUTHOR'S ORGANIZ ATION 01/28/2025 [facility] DATE CREATED AUTHOR AUTHOR'S ORGANIZ ATION 03/18/2025 [facility] DATE CREATED AUTHOR AUTHOR'S ORGANIZ ATION 06/03/2025 [facility] Source Comments (unrecognize d section and content) In the event this informatio n is protected by the Federal Confidentiality of Alcohol and Drug Abuse Patient Records regulations: The Federal rules restrict any use of the information to criminally investigate or prosecute any alcohol or drug abuse patient.[facility] the event this information is protected by the Federal Confidentiality of Alcohol and Drug Abuse Patient Records regulations: The Federal rules restrict any use of the information to criminally investigate or prosecute any alcohol or drug abuse patient.[facility] the event this information is protected by the Federal Confidentiality of Alcohol and Drug Abuse Patient Records regulations: The Federal rules restrict any use of the information to criminally investigate or prosecute any alcohol or drug abuse patient.[facility] the event this information is protected by the Federal Confidentiality of Alcohol and Drug Abuse Patient Records regulations: The Federal rules restrict any use of the information to criminally investigate or prosecute any alcohol or drug abuse patient.[facility] the event this information is protected by the Federal Confidentiality of Alcohol and Drug Abuse Patient Records regulations: The Federal rules restrict any use of the information to criminally investigate or prosecute any alcohol or drug abuse patient.[facility] the event this information is protected by the Federal Confidentiality of Alcohol and Drug Abuse Patient Records regulations: The Federal rules restrict any use of the information to criminally investigate or prosecute any alcohol or drug abuse patient.[facility] the event this information is protected by the Federal Confidentiality of Alcohol and Drug Abuse Patient Records regulations: The Federal rules restrict any use of the information to criminally investigate or prosecute any alcohol or drug abuse patient.[facility] the event this information is protected by the Federal Confidentiality of Alcohol and Drug Abuse Patient Records regulations: The Federal rules restrict any use of the information to criminally investigate or prosecute any alcohol or drug abuse patient.[facility] the event this information is protected by the Federal Confidentiality of Alcohol and Drug Abuse Patient Records regulations: The Federal rules restrict any use of the information to criminally investigate or prosecute any alcohol or drug abuse patient.[facility] the event this information is protected by the Federal Confidentiality of Alcohol and Drug Abuse Patient Records regulations: The Federal rules restrict any use of the information to criminally investigate or prosecute any alcohol or drug abuse patient.[facility] the event this information is protected by the Federal Confidentiality of Alcohol and Drug Abuse Patient Records regulations: The Federal rules restrict any use of the information to criminally investigate or prosecute any alcohol or drug abuse patient.[facility] the event this information is protected by the Federal Confidentiality of Alcohol and Drug Abuse Patient Records regulations: The Federal rules restrict any use of the information to criminally investigate or prosecute any alcohol or drug abuse patient.[facility] the event this information is protected by the Federal Confidentiality of Alcohol and Drug Abuse Patient Records regulations: The Federal rules restrict any use of the information to criminally investigate or prosecute any alcohol or drug abuse patient.[facility] Hospital[facility] the event this information is protected by the Federal Confidentiality of Alcohol and Drug Abuse Patient Records regulations: The Federal rules restrict any use of the information to criminally investigate or prosecute any alcohol or drug abuse patient.[facility] the event this information is protected by the Federal Confidentiality of Alcohol and Drug Abuse Patient Records regulations: The Federal rules restrict any use of the information to criminally investigate or prosecute any alcohol or drug abuse patient.[facility] the event this information is protected by the Federal Confidentiality of Alcohol and Drug Abuse Patient Records regulations: The Federal rules restrict any use of the information to criminally investigate or prosecute any alcohol or drug abuse patient.[facility]In the event this information is protected by the Federal Confidentiality of Alcohol and Drug Abuse Patient Records regulations: The Federal rules restrict any use of the information to criminally investigate or prosecute any alcohol or drug abuse patient.[facility] HospitalIn the event this information is protected by the Federal Confidentiality of Alcohol and Drug Abuse Patient Records regulations: The Federal rules restrict any use of the information to criminally investigate or prosecute any alcohol or drug abuse patient.[facility] HospitalIn the event this information is protected by the Federal Confidentiality of Alcohol and Drug Abuse Patient Records regulations: The Federal rules restrict any use of the information to criminally investigate or prosecute any alcohol or drug abuse patient.[facility] HospitalIn the event this information is protected by the Federal Confidentiality of Alcohol and Drug Abuse Patient Records regulations: The Federal rules restrict any use of the information to criminally investigate or prosecute any alcohol or drug abuse patient.[facility] HospitalIn the event this information is protected by the Federal Confidentiality of Alcohol and Drug Abuse Patient Records regulations: The Federal rules restrict any use of the information to criminally investigate or prosecute any alcohol or drug abuse patient.[facility] HospitalIn the event this information is protected by the Federal Confidentiality of Alcohol and Drug Abuse Patient Records regulations: The Federal rules restrict any use of the information to criminally investigate or prosecute any alcohol or drug abuse patient.[facility] Reason for Visit (unrecogniz ed section and content) Reason Comments Appointment Reason Comments Follow Up Reason Comments Pre-Op Teaching Reason Comments Surgical Followup Reason Onset Date Comments Research F/U 09/26/2023 Reason Onset Date Comments Research F/U 09/27/2023 Reason Comments Established Patient Reason Comments Results - Ct Reason Comments Consult Established Patient Pt c/o UNCONTROLLED leakage - STOP ICS X2 [id number] Reason Comments Radiology CT Specialty Diagnoses / Procedures Referred By Contac t Referred To Contact CT IMAGING Diagnoses Other hydronephrosis Procedures CT UROGRAM WO/W IVCON CT ABD & PELVIS W/WO CONTRST 1+ BODY REGNS Taurus Ballard MD [address] [place] [id number] Imaging [facility] Referral ID Status Reason Start Date Expiration Date V isits Requested Visits Authorized [id number] Closed Auto-Generate d Referral 01/19/2024 02/10/2025 1 1 Reason Comments Consult Reason Comments Chronic Care Nurse - Other Returning Patient's Call Reason Onset [...] Annual Wellness Visit Initial Reason Comments Follow-up [facility] hospital f/up Reason Comments Follow-up Hospital follow up- Reason Onset Date Comments Med Refill 12/18/2024 Reason Comments Arm Injury Reason Onset Date Comments Med Refill 01/15/2025 Reason Comments Diabetes Reason Onset Date Comments Med Refill 02/11/2025 Reason Comments Arm Injury Reason Onset Date Comments Med Refill 03/13/2025 Reason Onset Date Comments Med Refill 04/18/2025 Reason Onset Date Comments Med Refill 05/19/2025 Patient Care team informatio n (unrecognized section and content) Team Status: Active Member Role Status Dates Sumi Lentz APRN GRANULATING MACHINE OPERATOR-C Primary Care Provider Active Team Status: Active Member Role Status Dates Sumi Lentz APRN GRANULATING MACHINE OPERATOR-C Primary Care Provider Active Start: April 26, 2024 End: April 27, 2024 Rafi Marcelo DO Attending Provider Active Sta rt: April 26, 2024 End: April 27, 2024 Shaikh Claribel MD Active Start: 2023 End: April 27, 2024 Team Status: Active Member Role Status Dates Sumi Lentz APRN GRANULATING MACHINE OPERATOR-C Primary Care Provider Active Start: May 10, 2024 Rafi Marcelo DO Attending Provider Active Sta rt: May 10, 2024 Team Status: Inactive Member Role Status Dates Sumi Lentz APRN GRANULATING MACHINE OPERATOR-C Primary Care Provider Active Start: June 05, 2024 End: June 05, 2024 Eli Sprague MD Attending Provider Active Star t: June 05, 2024 End: June 05, 2024 Adult Ministries Director Relationship Specialty Start Date End Date RicAgusto flower [address] [place] [place] [address] PCP - General 05/17/23 Lisa Olvera MD [address] [place] [address] Referring Urology 05/11/23 Adult Ministries Director Relationship Specialty Start Date End Date Agusto Olmstead [address] [place] [address] [place] [address] PCP - General 05/17/23 Lisa Olvera MD [address] [place] [address] Referring Urology 05/11/23 Adult Ministries Director Relationship Specialty Start Date End Date Agusto Olmstead [address] [place] [address] [place] [address] PCP - General 05/17/23 Lisa Olvera MD [address] [place] [address] Referring Urology 05/11/23 Adult Ministries Director Relationship Specialty Start Date End Date Agusto Olmstead [address] [place] [address] [place] [address] PCP - General 05/17/23 Lisa Olvera MD [address] [place] [address] Referring Urology 05/11/23 Adult Ministries Director Relationship Specialty Start Date End Date Agusto Olmstead [address] [place] [address] PCP - General 05/17/23 Lisa Olvera MD [address] [place] [address] Referring Urology 05/11/23 Adult Ministries Director Relationship Specialty Start Date End Date RicAgusto flower [address] [place] [address] PCP - General 05/17/23 Lisa Olvera MD [address] [place] [address] Referring Urology 05/11/23 Team Status: Inactive Member Role Status Dates Eli Sprague MD Attending Provider Active Star t: August 01, 2023 End: August 01, 2023 Adult Ministries Director Relationship Specialty Start Date End Date Agusto Olmstead [address] [place] [address] PCP - General 05/17/23 Lisa Olvera MD [address] [place] [address] Referring Urology 05/11/23 Agusto Olmstead [address] [place] [address] Referring 01/04/24 Adult Ministries Director Relationship Specialty Start Date End Date Agusto Olmstead [address] [place] [address] PCP - General 05/17/23 Lisa Olvera MD [address] [place] [address] Referring Urology 05/11/23 Agusto Olmstead [address] [place] [address] Referring 01/04/24 Adult Ministries Director Relationship Specialty Start Date End Date Agusto Olmstead [address] [place] [address] PCP - General 05/17/23 Lisa Olvera MD [address] [place] [address] Referring Urology 05/11/23 Agusto Olmstead [address] [place] [address] Referring 01/04/24 Adult Ministries Director Relationship Specialty Start Date End Date Agusto Olmstead [address] [place] [address] PCP - General 05/17/23 Lisa Olvera MD [address] [place] [address] Referring Urology 05/11/[address]stead [address] [place] [address] Referring 01/04/24 Adult Ministries Director Relationship Specialty Start Date End Date Agusto Olmstead [address] [place] [address] PCP - General 05/17/23 Lisa Olvera MD [address] [place] [address] Referring Urology 05/11/23 Agusto Olmstead [address] [place] [address] Referring 01/04/24 Adult Ministries Director Relationship Specialty Start Date End Date Agusto Olmstead [address] [place] [address] PCP - General 05/17/23 Lisa Olvera MD [address] [place] [address] Referring Urology 05/11/23 Agusto Olmstead [address] [place] [address] Referring 01/04/24 Adult Ministries Director Relationship Specialty Start Date End Date Agusto Olmstead [address] [place] [address] PCP - General 05/17/23 Lisa Olvera MD [address] [place] [address] Referring Urology 05/11/23 Agusto Olmstead [address] [place] [address] Referring 01/04/24 Adult Ministries Director Relationship Specialty Start Date End Date Agusto Olmstead [address] [address] [place] [address] PCP - General 05/17/23 Lisa Olvera MD [address] [place] [address] Referring Urology 05/11/23 Agusto Olmstead [address] [place] [address] Referring 01/04/24 Adult Ministries Director Relationship Specialty Start Date End Date Agusto Olmstead [address] [place] [address] PCP - General 05/17/23 Lisa Olvera MD [address] [place] [address] Referring Urology 05/11/23 Agusto Olmstead [address] [place] [address] Referring 01/04/24 Adult Ministries Director Relationship Specialty Start Date End Date Agusto Olmstead [address] [facility] [address] PCP - General 05/17/23 Lisa Olvera MD [address] [place] [address] Referring Urology 05/11/23 Agusto Olmstead [address] [facility] [address] Referring 01/04/24 Adult Ministries Director Relationship Specialty Start Date End Date Kofi Gotti MD [address] [place] [phone] PCP - General Family Medicine 10/09/23 Adult Ministries Director Relationship Specialty Start Date End Date Kofi Gotti MD [address] [place] [address] PCP - General Family Medicine 10/09/23 Adult Ministries Director Relationship Specialty Start Date End Date Agusto Olmstead [address] [place] [address] PCP - General 05/17/23 Lisa Olvera MD [address] [place] [address] Referring Urology 05/11/23 Agusto Olmstead [address] [place] [address] Referring 01/04/24 Adult Ministries Director Relationship Specialty Start Date End Date Kofi Gotti MD [address] [place] [address] PCP - General Family Medicine 10/09/23 Adult Ministries Director Relationship Specialty Start Date End Date Kofi Gotti MD [address] [place] [address] PCP - General Family Medicine 10/09/23 Adult Ministries Director Relationship Specialty Start Date End Date Kofi Gotti MD [address] [place] [address] PCP - General Family Medicine 10/09/23 Adult Ministries Director Relationship Specialty Start Date End Date Kofi Gotti MD [address] [place] [address] PCP - General Family Medicine 10/09/23 Adult Ministries Director Relationship Specialty Start Date End Date Kofi Gotti MD [address] [place] [address] PCP - General Family Medicine 10/09/23 Adult Ministries Director Relationship Specialty Start Date End Date Kofi Gotti MD [address] [place] [address] PCP - General Family Medicine 10/09/23 Adult Ministries Director Relationship Specialty Start Date End Date Kofi Gotti MD [address] [place] [address] PCP - General Family Medicine 06/20/24 Agusto Olmstead, GRANULATING MACHINE OPERATOR [address] [place] [address] Nurse Practitioner Family Medicine 06/11/24 Adult Ministries Director Relationship Specialty Start Date End Date Kofi Gotti MD [address] [place] [address] PCP - General Family Medicine 06/20/24 Agusto Olmstead NP [address] [place] [address] Nurse Practitioner Family Medicine 06/11/24 Adult Ministries Director Relationship Specialty Start Date End Date Agusto Olmstead, CATCHER [employer] BUSINESS CONSULTANT PCP - General Nurse Practitioner 11/10/22 Adult Ministries Director Relationship Specialty Start Date End Date Kofi Gotti MD [address] [place] [address] PCP - General Family Medicine 06/20/24 Agusto Olmstead NP [address] [place] [address] Nurse Practitioner Family Medicine 06/11/24 Adult Ministries Director Relationship Specialty Start Date End Date Kofi Gotti MD [address] [place] [address] PCP - General Family Medicine 06/20/24 Agusto Olmstead NP [address] [place] [address] Nurse Practitioner Family Medicine 06/11/24 Adult Ministries Director Relationship Specialty Start Date End Date Kofi Gotti MD [address] [place] [address] PCP - General Family Medicine 06/20/24 Agusto Olmstead NP [address] [place] [address] Nurse Practitioner Family Medicine 06/11/24 Team Status: Active Member Role Status Dates Sumi Lentz APRN GRANULATING MACHINE OPERATOR-C Primary Care Provider Active Start: August 28, 2024 Eli Sprague MD Attending Provider Active Star t: August 28, 2024 Team Status: Inactive Member Role Status Dates Sumi Lentz APRN GRANULATING MACHINE OPERATOR-C Primary Care Provider Active Start: September [...] nding Provider Active Start: September 05, 2024 Adult Ministries Director Relationship Specialty Start Date End Date Kofi Gotti MD [address] [place] [address] PCP - General Family Medicine 06/20/24 Agusto Olmstead NP [address] [place] [address] Nurse Practitioner Family Medicine 06/11/24 Team Status: [...] Alejandro Vallejo MD Admit Provider Active Start: prudence 2024 End: September 08, 2024 Gilmer Tai [...] Sta rt: September 06, 2024 Yessica Barros , CATCHER PLUG Emergency Provider Active Start: September 06, 2024 Alejandro Vallejo MD Admit Provider Active Start: Dong foss 2024 Gilmer Tai MD Other Provider Active Start: September 06, 2024 Akin Dougherty MD Attending Provider, Other Provider Active Start: September 06, 2024 Adult Ministries Director Relationship Specialty Start Date End Date Agusto Olmstead, CATCHER [employer] BUSINESS CONSULTANT PCP - General Nurse Practitioner 11/10/22 Adult Ministries Director Relationship Specialty Start Date End Date Kofi Gotti MD [address] [place] [address] PCP - General Family Medicine 06/20/24 Agusto Olmstead NP [address] [place] [address] Nurse Practitioner Family Medicine 06/11/24 Adult Ministries Director Relationship Specialty Start Date End Date Kofi Gotti MD [address] [place] [address] PCP - General Family Medicine 06/20/24 Agusto Olmstead NP [address] [place] [address] Nurse Practitioner Family Medicine 06/11/24 Adult Ministries Director Relationship Specialty Start Date End Date Agusto Olmstead, CATCHER PLUG-[facility] PCP - General Nurse Practitioner 11/10/22 Adult Ministries Director Relationship Specialty Start Date End Date [facility] PCP - General Nurse Practitioner 11/10/22 Adult Ministries Director Relationship Specialty Start Date End Date [facility] PCP - General Nurse Practitioner 11/10/22 Adult Ministries Director Relationship Specialty Start Date End Date Kofi Gotti MD [address] [place] [address] PCP - General Family Medicine 06/20/24 Agusto Olmstead NP [address] [place] [address] Nurse Practitioner Family Medicine 06/11/24 Ninfa Canela MA Family Medicine 09/13/24 Adult Ministries Director Relationship Specialty Start Date End Date [facility]ust[facility] Olmstead, [facility] PCP - General Nurse Practitioner 11/10/22 Adult Ministries Director Relationship Specialty Start Date End Date Kofi Gotti MD [address] [place] [address] PCP - General Family Medicine 06/20/24 Agusto Olmstead NP [address] [place] [address] Nurse Practitioner Family Medicine 06/11/24 Nifna Canela MA Family Medicine 09/13/24 Adult Ministries Director Relationship Specialty Start Date End Date Kofi Gotti MD [address] [place] [address] PCP - General Family Medicine 06/20/24 Agusto Olmstead NP [address] [place] [address] Nurse Practitioner Family Medicine 06/11/24 Ninfa Canela MA Family Medicine 09/13/24 Adult Ministries Director Relationship Specialty Start Date End Date Kofi Gotti MD [address] [place] [address] PCP - General Family Medicine 06/20/24 Agusto Olmstead NP [address] [place] [address] Nurse Practitioner Family Medicine 06/11/24 Ninfa Canela MA Family Medicine 09/13/24 Adult Ministries Director Relationship Specialty Start Date End Date Kofi Gotti MD [address] [place] [address] PCP - General Family Medicine 06/20/24 Agusto Olmstead NP [address] [place] [address] Nurse Practitioner Family Medicine 06/11/24 Ninfa Canela MA Family Medicine 09/13/24 Adult Ministries Director Relationship Specialty Start Date End Date Kofi Gotti MD [address] [place] [address] PCP - General Family Medicine 06/20/24 Agusto Olmstead NP [address] [place] [address] Nurse Practitioner [facility] 06/11/24 Ninfa Canela MA [facility] Medicine 09/13/24 Adult Ministries Director Relationship Specialty Start Date End Date Kofi Gotti MD [address] [place] [address] PCP - General Family Medicine 06/20/24 Agusto Olmstead NP [address] [place] [address] Nurse Practitioner Family Medicine 06/11/24 Ninfa Canela MA [facility] 09/13/24 Team Status: Active Member Role [...] Provider Active Start: November 24, 2024 Annette Henrandez MD Other Provider Active St art: November 24, 2024 Clinton Galdamez MD Other Provider Active Start: November 24, 2024 Aislinn Diaz APRN Other Provider Active Start : November 24, 2024 Shyann Lomax MD Other Provider Active Start: A pril 2024 Felecia Marques MD Other Provider Active Start: November 24, 2024 Shankar Murphy MD Other Provider Active Start: A pril 2024 Julia Krueger [facility] Other Provider Active Sta rt: November 24, 2024 Team Status: Active Member Role Status Dates Agsuto Olmstead Primary Care Provider Active Sta rt: [...] A pril 2024 Julia Krueger , [facility]- Other Provider Active Sta rt: November 24, 2024 Galo Mcmullen MD Attending Provider Active Start: November 24 Adult Ministries Director Relationship Specialty Start Date End Date Kofi Gotti MD [address] [place] [address] PCP - General Family Medicine 06/20/24 Agusto Olmstead NP [address] [place] [address] Nurse Practitioner Family Medicine 06/11/24 Ninfa Canela MA Family Medicine 09/13/24 Adult Ministries Director Relationship Specialty Start Date End Date Kofi Gotti MD [address] [place] [address] PCP - General Family Medicine 06/20/24 Agusto Olmstead NP [address] [place] [address] Nurse Practitioner Family Medicine 06/11/24 Ninfa Canela MA Family Medicine 09/13/24 Adult Ministries Director Relationship Specialty Start Date End Date Kofi Gotti MD [address] [place] [address] PCP - General Family Medicine 06/20/24 Agusto Olmstead NP [address] [place] [address] Nurse Practitioner Family Medicine 06/11/24 Ninfa Canela MA Family Medicine 09/13/24 Adult Ministries Director Relationship Specialty Start Date End Date Agusto Olmstead, CATCHER [employer] BUSINESS CONSULTANT PCP - General Nurse Practitioner 11/10/22 Adult Ministries Director Relationship Specialty Start Date End Date Agusto Olmstead APRN-E BUSINESS CONSULTANT PCP - General Nurse Practitioner 11/10/22 Adult Ministries Director Relationship Specialty Start Date End Date Kofi Gotti MD [address] [place] [address] PCP - General Family Medicine 06/20/24 Agusto Olmstead NP [address] [place] [address] Nurse Practitioner Family Medicine 06/11/24 Ninfa Canela MA Family Medicine 09/13/24 Adult Ministries Director Relationship Specialty Start Date End Date Kofi Gotti MD [address] [place] [address] PCP - General Family Medicine 06/20/24 Agusto Olmstead NP [address] [place] [address] Nurse Practitioner Family Medicine 06/11/24 Ninfa Canela MA Family Medicine 09/13/24 Adult Ministries Director Relationship Specialty Start Date End Date Kofi Gotti MD [address] [place] [address] PCP - General Family Medicine 06/20/24 Agusto Olmstead NP [address] [place] [address] Nurse Practitioner Family Medicine 06/11/24 Ninfa Canela [...] Active Start: A pril [address] [facility]- Other Provider Active Sta rt: November 24, [...] Provider Active Star t: November 24, 2024 W Lakisha Alcazar , Other Provider Active Start : November 24, [...] Start: A pril 2024 Julia Krueger , [facility] Other Provider Active Sta rt: November 24, 2024 Galo Mcmullen MD Attending Provider Activ e Start: November 24, 2024 Team Status: Inactive Member Role Status Dates Jori Garcia , Attending Provider Active S tart: February 11, 2025 End: February 11, 2025 Adult Ministries Director Relationship Specialty Start Date End Date Agusto Olmstead, CATCHER PL[employer] BUSINESS CONSULTANT PCP - General Nurse Practitioner 11/10/22 Adult Ministries Director Relationship Specialty Start Date End Date Kapil Maxwell MD [address] [facility] [place] [address] PCP - General Family Medicine 02/19/25 Adult Ministries Director Relationship Specialty Start Date End Date Kapil Maxwell MD [address] [facility] [place] [address] PCP - General Family Medicine 02/19/25 Adult Ministries Director Relationship Specialty Start Date End Date Kapil Maxwell MD [address] [facility] [place] [place] [address] PCP - General Family Medicine 02/19/25 Adult Ministries Director Relationship Specialty Start Date End Date Kapil Maxwell MD [address] [facility] [place] [address] PCP - General Family Medicine 02/19/25 Team Status: Active Member Role Status Dates PHYSICIAN NO FAMILY Primary Care Provider Active Team Status: Inactive Member Role Status Dates Eli Sprague MD Attending Provider Active Star t: March 17, 2025 End: March 17, 2025 PHYSICIAN NO FAMILY Primary Care Provider Active Start: March 17, 2025 End: March 17, 2025 Adult Ministries Director Relationship Specialty Start Date End Date Kapil Maxwell MD [address] [facility] [place] [address] PCP - General Family Medicine 02/19/25 Team Status: Active Member Role Status Dates PHYSICIAN NO FAMILY Primary Care Provider Active Start: March 25, 2025 Eli Sprague MD Attending Provider Active Star t: March 25, 2025 Team Status: Active Member Role Status Dates PHYSICIAN NO FAMILY Primary Care Provider Active Start: May 05, 2025 Eli Sprague MD Attending Provider Active Star t: May 05, 2025 Team Status: Inactive Member Role Status Dates PHYSICIAN NO FAMILY Primary Care Provider Active Start: May 14, 2025 End: May 14, 2025 Eli Sprague MD Attending Provider Active Star t: May 14, 2025 End: May 14, 2025 Team Status: Active Member Role Status Dates PHYSICIAN NO FAMILY Primary Care Provider Active Start: May 20, 2025 Aleksey Clemente DO Emergency Provider Active St art: May 20, 2025 Ankush Farmer MD Admit Provider Active Sta rt: May 20, 2025 Ankush Farmer MD Attending Provider Active Start: May 20, 2025 Team Status: Active Member Role Status Dates PHYSICIAN NO FAMILY Primary Care Provider Active Start: May 20, 2025 Aleksey Clemente DO Emergency Provider Active St art: May 20, 2025 Ankush Farmer MD Admit Provider Active Sta rt: May 20, 2025 Ankush Farmer MD Other Provider Active Sta rt: May 20, 2025 Eli Sprague MD Attending Provider Active Star t: May 20, 2025 Eli Sprague MD Other Provider Active Start: S willietemblacie 2024 Team Status: Inactive Member Role Status Dates PHYSICIAN NO FAMILY Primary Care Provider Active Start: May 29, 2025 End: May 29, 2025 Domenico Kirk MD Attending Provider Active Star t: May 29, 2025 End: May 29, 2025 Team Status: Inactive Member Role Status Dates PHYSICIAN NO FAMILY Primary Care Provider Active Start: May 29, 2025 End: May 29, 2025 Domenico Kirk MD Attending Provider Active Star t: May 29, 2025 End: May 29, 2025 Domenico Kirk MD Other Provider Active Start: O ct2024 End: May 29, 2025 Team Status: Inactive Member Role Status Dates PHYSICIAN NO FAMILY Primary Care Provider Active Start: June 02, 2025 End: June 02, 2025 Eli Sprague MD Attending Provider Active Star t: June 02, 2025 End: June 02, 2025 Goals (unrecognized section and content) Type Treatment Intervention Code Status: Full Code Goals may be documented in an alternate section FOR RECORDS PERTAINING TO PATIENTS [...] BE BASED ON THE PRIMARY CLINICAL RECORDS. [facility] 1-800-DOCTORS [facility]. provides no warranty or guarantee of the accuracy or completeness of information in this document.
--- NOTE | 2025-06-04 11:12 | XR_ITS ---
The [address] [address] Patient Name: AISLINN CARNES MRN: [id number] date: 1960 Sex: F Assigned Patient Location: LAB Current Patient Location: LAB Accession/Order Number: [id number] Exam Date: 06/04/2025 11:18 Report Date: 06/04/2025 11:39 At the request of: MADDIE NATION Procedure: XR chest 2V PA AND LATERAL CHEST: CLINICAL HISTORY: Positive PPD Z20.1 COMPARISON: 02/11/2025 A new Ynhdyi-e-Mzzk catheter is visualized on the right. The tip is near the cavoatrial junction. There is continued slight elevation of the right hemidiaphragm. There is no developing consolidation, effusion or pneumothorax. The cardiac, hilar and mediastinal silhouettes are within normal limits. There is no vascular congestion. The visualized bony thorax is intact. XR/XR chest 2V IMPRESSION: NO ACUTE FINDINGS OR RADIOGRAPHIC EVIDENCE OF PULMONARY TUBERCULOSIS. Impression dictated by: Lenora Pike M.D. 06/04/2025 11:39 AM Dictation Location: [place] [address] Electronically authenticated by: [id number] Y Date: 06/04/2025 11:39
== END 2025-06-04 10:49 | disposition home or self-care (01) ==
LOC: LAB 10:49
PROVIDERS: Visit Provider Internal Medicine
DX: Z20.1 Contact with and (suspected) exposure to tuberculosis (principal)
CPT/HCPCS: 36415; 71046; 86480